=== PATIENT | male | born 1960 | race Caucasian/White ===

== ENCOUNTER → 2020-02-06 | Outpatient (CLI) | payer OTHER, SELFPAY ==
--- NOTE | 2020-02-06 17:00 | RAD_ITS ---
STUDY: X-RAY - LEFT FEMUR REASON FOR STUDY: Male, 59 years old. LOWER BACK PAIN THAT RADIATES INTO THE LEFT HIP. HAS HAD MULTIPLE BACK SURGERIES TECHNIQUE: 6 view(s) of the femur. COMPARISON: None. FINDINGS: There is no evidence of left femoral fracture or dislocation. There are mild arthritic changes of the left hip joint and tricompartmental degenerative changes of the left knee. There is chondrocalcinosis of the medial meniscal cartilage. Several small calcifications are seen in the region of the suprapatellar bursa. RAD/Femur Min 2 Views IMPRESSION: Mild degenerative changes of the left hip. Mild tricompartmental degenerative changes of the left knee. Chondrocalcinosis of the medial meniscal cartilage. Several small calcifications noted in the region of the suprapatellar bursa. Electronically Signed: Miguel Echols MD at 19:17 EDT , Service support ,
--- NOTE | 2020-02-06 17:12 | RAD_ITS ---
STUDY: X-RAY - RIGHT SHOULDER REASON FOR EXAM: Male, 59 years old. RIGHT SHOULDER PAIN. TECHNIQUE: 4 view(s) of the shoulder. COMPARISON: None. FINDINGS: There is mild degenerative arthrosis of the glenohumeral articulation. Normal acromioclavicular joint. Normal acromion. Normal humeral head and visualized proximal humerus. The soft tissue structures are unremarkable. Normal visualized pulmonary apex. RAD/Shoulder min 2 Views IMPRESSION: Mild degenerative changes of the glenohumeral articulation. Electronically Signed: Miguel Echols MD at 19:19 EDT , Service support ,
== END | disposition home or self-care (01) ==
LOC: RAD 16:42
PROVIDERS: Referring Provider Anesthesiology Pain Medicine; Visit Provider Anesthesiology Pain Medicine
DX: M25.511 Pain in right shoulder (principal); M25.552 Pain in left hip
CPT/HCPCS: 73030; 73552

== ENCOUNTER → 2020-03-05 | Outpatient (CLI) | payer OTHER, SELFPAY ==
[2020-03-05 17:59] LABS: Amphetamine Urine VISTA NEGATIVE (<1000 ng/mL); Barbiturate Urine VISTA NEGATIVE (< 200 ng/mL); Benzodiazepine Urine VISTA NEGATIVE (< 200 ng/mL); Cocaine Urine VISTA NEGATIVE (< 300 ng/mL); Ecstacy Urine VISTA NEGATIVE (< 500 ng/mL); Methadone Urine VISTA NEGATIVE (< 300 ng/mL); PCP Urine VISTA NEGATIVE (< 25 ng/mL); THC Urine VISTA NEGATIVE (< 50 ng/mL); Vista UDS pH Range 5
== END | disposition home or self-care (01) ==
PROVIDERS: Visit Provider Anesthesiology Pain Medicine
DX: F11.20 Opioid dependence, uncomplicated (principal)
CPT/HCPCS: 80307

== ENCOUNTER → 2020-08-01 | Outpatient (CLI) | payer OTHER, SELFPAY ==
--- NOTE | 2020-08-01 15:21 | MRI_ITS ---
STUDY: MRI LUMBAR SPINE WITHOUT CONTRAST REASON FOR EXAM: Male, 59 years old. back and L leg pain, stepped backwards into hole 12/2016 TECHNIQUE: Standardized fat and water weighted pulse sequences were obtained in the sagittal and axial planes. COMPARISON: None FINDINGS: T12-L1: Normal endplates. Normal disc height, hydration and morphology. Normal bilateral facet joints. Normal central canal and bilateral lateral recesses. Normal bilateral intervertebral neural foramina. Normal lumbar lordosis. There is no substantial scoliosis. Normal conus medullaris that terminates at the L1 level. L1-2: Bulging annulus and bilateral facet hypertrophy with mild central canal and bilateral foraminal stenoses. L2-3: Bulging annulus, right foraminal disc protrusion and bilateral facet hypertrophy and facet joint effusions with moderate central canal and severe right and mild left foraminal stenoses. L3-4: Bulging annulus and bilateral facet and ligamentum flavum hypertrophy with severe central canal stenosis and severe right and moderate left foraminal stenoses. L4-5: Bulging annulus and bilateral facet hypertrophy with moderate central canal stenosis and moderate bilateral foraminal stenoses. L5-S1: Disc space narrowing and desiccation with discogenic endplate changes and anterior osteophytes. Bulging annulus and bilateral facet hypertrophy with severe bilateral foraminal stenoses. Normal visualized sacral ala. Normal visualized paraspinous soft tissue structures. MRI/Spine Lumbar (Routine) IMPRESSION: Multilevel degenerative disease as described. Severe foraminal stenoses on the right at L2-3, on the right at L3-4, and bilaterally at L5-S1. Severe central canal stenosis at L3-4. Electronically Signed: Martin Noel MD at 19:41 EDT Tel , Service support ,
== END | disposition home or self-care (01) ==
LOC: MRI 15:02
PROVIDERS: PCP Family Medicine; Referring Provider Anesthesiology Pain Medicine; Visit Provider Anesthesiology Pain Medicine
DX: M54.9 Dorsalgia, unspecified (principal); M79.606 Pain in leg, unspecified
CPT/HCPCS: 72148

== ENCOUNTER → 2020-11-22 13:12 | Outpatient (CLI) | payer OTHER, SELFPAY ==
[2020-11-22 13:59] LABS: Amphetamine Urine VISTA NEGATIVE (<1000 ng/mL); Barbiturate Urine VISTA NEGATIVE (< 200 ng/mL); Benzodiazepine Urine VISTA NEGATIVE (< 200 ng/mL); Cocaine Urine VISTA NEGATIVE (< 300 ng/mL); Ecstacy Urine VISTA NEGATIVE (< 500 ng/mL); Methadone Urine VISTA NEGATIVE (< 300 ng/mL); PCP Urine VISTA NEGATIVE (< 25 ng/mL); THC Urine VISTA NEGATIVE (< 50 ng/mL); Vista UDS pH Range 6
== END ==
LOC: LABSPEC 13:15 → LAB 13:18
PROVIDERS: PCP Family Medicine; Referring Provider Anesthesiology Pain Medicine; Visit Provider Anesthesiology Pain Medicine
DX: F11.20 Opioid dependence, uncomplicated (principal)
CPT/HCPCS: 80307

== ENCOUNTER → 2023-03-25 | Outpatient (REF) | payer MEDICAID, SELFPAY ==
[2023-03-25 09:21] LABS: Hematocrit 36.9 % (40-54); Hemoglobin 11.6 g/dL (13.0-16.5); Mean Corp Hgb Conc 31.4 g/dL (32-36); Mean Corpuscular Hgb 31.3 pg (27.0-32.0); Mean Corpuscular Volume 99.5 fL (80-94); Mean Platelet Vol. 9.9 fl (6.2-12.0); Platelet Count 301 K/mm3 (150-450); RBC Distribution Width CV 13.5 % (11.6-14.6); RBC Distribution Width SD 50.3 fl (35.1-43.9); Red Blood Count 3.71 M/mm3 (4.6-6.2); White Blood Count 6.8 K/mm3 (4.4-11.0)
[2023-03-25 09:55] LABS: ALB/GLOB Ratio 0.6 RATIO (0.9-2.4); AST(SGOT) 13 U/L (15-37); Alanine Aminotransfer ALT/SGPT 18 U/L (16-61); Albumin, Serum 2.4 g/dL (3.2-5.0); Alkaline Phosphatase 121 U/L (45-117); Anion Gap 7 (5-15); BUN 10 mg/dL (7-18); BUN/Creat Ratio 22.6 RATIO (10-20); Calcium,Total 8.7 mg/dL (8.5-10.1); Chloride 107 mmol/L (98-107); Cholesterol 163 mg/dL (200); Creatinine, Serum 0.44 mg/dL (0.70-1.30); EST Glomerular Filtration Rate 207 mL/min (>60); Est Glom Filt Rate - Afr Amer 250 mL/min (>60); Globulin 4.3 g/dL (2.2-4.2); Glucose 119 mg/dL (74-106); High Density Lipoprotein 27 mg/dL; PSA,Total - Annual Screen 0.59 ng/mL (0.00-4.00); Potassium 3.6 mmol/L (3.5-5.1); Protein, Total 6.7 g/dL (6.4-8.2); Sodium Level 137 mmol/L (136-145); Thyroid Stim Hormone (TSH) 3.33 uIU/mL (0.358-3.74); Triglycerides 139 mg/dL; Very Low Density Lipoprotein 28 mg/dL (5-40)
== END ==
LOC: OLS.SANC 06:46
PROVIDERS: PCP Family Medicine; Visit Provider Internal Medicine
DX: E11.9 Type 2 diabetes mellitus without complications (principal); D64.9 Anemia, unspecified; Z12.5 Encounter for screening for malignant neoplasm of prostate
CPT/HCPCS: 36415; 80053; 80061; 84153; 84443; 85027; G0103

== ENCOUNTER → 2023-05-04 | Outpatient (REF) | payer MEDICAID, SELFPAY ==
[2023-05-04 09:22] LABS: Hematocrit 32.8 % (40-54); Hemoglobin 10.2 g/dL (13.0-16.5); Mean Corp Hgb Conc 31.1 g/dL (32-36); Mean Corpuscular Hgb 30.8 pg (27.0-32.0); Mean Corpuscular Volume 99.1 fL (80-94); Mean Platelet Vol. 10.2 fl (6.2-12.0); Platelet Count 290 K/mm3 (150-450); RBC Distribution Width CV 13.5 % (11.6-14.6); RBC Distribution Width SD 48.8 fl (35.1-43.9); Red Blood Count 3.31 M/mm3 (4.6-6.2); White Blood Count 6.7 K/mm3 (4.4-11.0)
[2023-05-04 09:47] LABS: ALB/GLOB Ratio 0.6 RATIO (0.9-2.4); AST(SGOT) 16 U/L (15-37); Alanine Aminotransfer ALT/SGPT 17 U/L (16-61); Albumin, Serum 2.2 g/dL (3.2-5.0); Alkaline Phosphatase 104 U/L (45-117); Anion Gap 4 (5-15); BUN 12 mg/dL (7-18); BUN/Creat Ratio 21.9 RATIO (10-20); Calcium,Total 8.4 mg/dL (8.5-10.1); Chloride 109 mmol/L (98-107); Creatinine, Serum 0.55 mg/dL (0.70-1.30); EST Glomerular Filtration Rate 161 mL/min (>60); Est Glom Filt Rate - Afr Amer 195 mL/min (>60); Globulin 3.8 g/dL (2.2-4.2); Glucose 183 mg/dL (74-106); Sodium Level 139 mmol/L (136-145)
== END ==
LOC: OLS.SANC 04:00
PROVIDERS: PCP Family Medicine; Referring Provider Internal Medicine; Visit Provider Internal Medicine
DX: E11.9 Type 2 diabetes mellitus without complications (principal); D64.9 Anemia, unspecified
CPT/HCPCS: 36415; 80053; 85027

== ENCOUNTER → 2023-06-01 | Outpatient (REF) | payer MEDICAID, SELFPAY ==
[2023-06-01 08:45] LABS: Hematocrit 39.5 % (40-54); Hemoglobin 12.7 g/dL (13.0-16.5); Mean Corp Hgb Conc 32.2 g/dL (32-36); Mean Corpuscular Hgb 32.1 pg (27.0-32.0); Mean Corpuscular Volume 99.7 fL (80-94); Mean Platelet Vol. 10.1 fl (6.2-12.0); Platelet Count 274 K/mm3 (150-450); RBC Distribution Width CV 14.6 % (11.6-14.6); RBC Distribution Width SD 54.3 fl (35.1-43.9); Red Blood Count 3.96 M/mm3 (4.6-6.2); White Blood Count 6.8 K/mm3 (4.4-11.0)
[2023-06-01 09:00] LABS: Anion Gap 4 (5-15); BUN 14 mg/dL (7-18); BUN/Creat Ratio 29.2 RATIO (10-20); Calcium,Total 8.5 mg/dL (8.5-10.1); Chloride 112 mmol/L (98-107); Creatinine, Serum 0.48 mg/dL (0.70-1.30); EST Glomerular Filtration Rate 188 mL/min (>60); Est Glom Filt Rate - Afr Amer 227 mL/min (>60); Glucose 133 mg/dL (74-106); Potassium 3.8 mmol/L (3.5-5.1); Sodium Level 141 mmol/L (136-145)
== END ==
LOC: OLS.SANC 04:00
PROVIDERS: PCP Family Medicine; Referring Provider Internal Medicine; Visit Provider Internal Medicine
DX: D64.9 Anemia, unspecified (principal); N39.0 Urinary tract infection, site not specified; E11.9 Type 2 diabetes mellitus without complications
CPT/HCPCS: 36415; 80048; 85027

== ENCOUNTER → 2023-06-29 | Outpatient (REF) | payer MEDICAID, SELFPAY ==
[2023-06-29 09:10] LABS: Hematocrit 39.4 % (40-54); Hemoglobin 12.6 g/dL (13.0-16.5); Mean Corpuscular Hgb 31.1 pg (27.0-32.0); Mean Corpuscular Volume 97.3 fL (80-94); Platelet Count 243 K/mm3 (150-450); RBC Distribution Width CV 13.6 % (11.6-14.6); RBC Distribution Width SD 48.6 fl (35.1-43.9); Red Blood Count 4.05 M/mm3 (4.6-6.2); White Blood Count 6.4 K/mm3 (4.4-11.0)
[2023-06-29 09:19] LABS: Anion Gap 7 (5-15); BUN 15 mg/dL (7-18); BUN/Creat Ratio 28.8 RATIO (10-20); Calcium,Total 8.3 mg/dL (8.5-10.1); Chloride 108 mmol/L (98-107); Creatinine, Serum 0.52 mg/dL (0.70-1.30); EST Glomerular Filtration Rate 171 mL/min (>60); Est Glom Filt Rate - Afr Amer 207 mL/min (>60); Glucose 169 mg/dL (74-106); Potassium 3.4 mmol/L (3.5-5.1); Sodium Level 139 mmol/L (136-145)
== END ==
LOC: OLS.SANC 04:00
PROVIDERS: PCP Family Medicine; Referring Provider Internal Medicine; Visit Provider Internal Medicine
DX: D64.9 Anemia, unspecified (principal); E11.9 Type 2 diabetes mellitus without complications; G82.20 Paraplegia, unspecified
CPT/HCPCS: 36415; 80048; 85027

== ENCOUNTER → 2023-07-31 | Outpatient (REF) | payer MEDICAID, SELFPAY ==
[2023-07-31 07:55] LABS: Bacteria 0 SEEN /hpf (None Seen); Mucous, Urine 0 SEEN /hpf (<or=2+); Squamous Epithelial Cells - UA 0 SEEN /hpf (0-5)
[2023-07-31 08:05] LABS: Color, Urine Yellow (Yellow); Glucose, Dipstick Normal (Normal); Ketone-Dipstick Negative (Negative); Leukocyte Esterase-Dipstick 500 /ul (Negative); Nitrite-Dipstick Negative (Negative); Occult Blood-Urine 250 /ul (Negative); Protein-Dipstick 30 mg/dl (Negative); Urine Bilirubin Dipstick Negative (Negative); Urine Clarity Cloudy (Clear); Urine Urobilinogen Normal (Normal)
[2023-07-31 08:19] LABS: Amorphous Sediment 2+; Red Blood Cells-Urine 10-25 SEEN /hpf (0-5); White Blood Cells 50-100 SEEN /hpf (0-5)
== END ==
LOC: OLS.SANC 05:00
PROVIDERS: PCP Family Medicine; Visit Provider Internal Medicine
DX: N40.1 Benign prostatic hyperplasia with lower urinary tract symptoms (principal); R31.9 Hematuria, unspecified; N20.9 Urinary calculus, unspecified
CPT/HCPCS: 81001; 87077; 87086; 87088; 87186

== ENCOUNTER → 2023-08-07 | Outpatient (REF) | payer MEDICAID, SELFPAY ==
[2023-08-07 10:32] LABS: Hemoglobin A1c 6.2 % (3.8-5.6)
== END | disposition home or self-care (01) ==
LOC: OLS.SANC 05:00
PROVIDERS: PCP Family Medicine; Visit Provider Internal Medicine
DX: E11.9 Type 2 diabetes mellitus without complications (principal)
CPT/HCPCS: 36415; 83036

== ENCOUNTER → 2023-08-10 | Outpatient (REF) | payer MEDICAID, SELFPAY ==
[2023-08-10 10:42] LABS: Hemoglobin A1c 6.2 % (3.8-5.6)
== END | disposition home or self-care (01) ==
LOC: OLS.SANC 04:00
PROVIDERS: PCP Family Medicine; Referring Provider Internal Medicine; Visit Provider Internal Medicine
DX: D64.9 Anemia, unspecified (principal); E11.9 Type 2 diabetes mellitus without complications
CPT/HCPCS: 36415; 83036

== ENCOUNTER → 2023-10-25 | Outpatient (REF) | payer MEDICAID, SELFPAY ==
[2023-10-26 09:24] LABS: Mucous, Urine 0 SEEN /hpf (<or=2+); Squamous Epithelial Cells - UA 0 SEEN /hpf (0-5)
[2023-10-26 09:52] LABS: Glucose, Dipstick Normal (Normal); Ketone-Dipstick Negative (Negative); Leukocyte Esterase-Dipstick 500 /ul (Negative); Nitrite-Dipstick Negative (Negative); Occult Blood-Urine 150 /ul (Negative); Protein-Dipstick 500 mg/dl (Negative); Urine Bilirubin Dipstick Negative (Negative); Urine Urobilinogen Normal (Normal)
[2023-10-26 09:57] LABS: Color, Urine YELLOW (Yellow); Urine Clarity Cloudy (Clear)
[2023-10-26 09:59] LABS: Amorphous Sediment 3+; Bacteria 1+ /hpf (None Seen); Uric Acid Crystals Ur 3+ /hpf (<or=1+)
[2023-10-26 10:00] LABS: Red Blood Cells-Urine 0-5 SEEN /hpf (0-5); White Blood Cells 0-5 SEEN /hpf (0-5)
== END | disposition home or self-care (01) ==
LOC: OLS.SANC 23:00
PROVIDERS: PCP Family Medicine; Visit Provider Internal Medicine
DX: N39.0 Urinary tract infection, site not specified (principal)
CPT/HCPCS: 81001; 87077; 87086; 87088; 87186

== ENCOUNTER → 2023-12-04 | Outpatient (REF) | payer MEDICAID, SELFPAY ==
[2023-12-04 08:43] LABS: Mucous, Urine 0 SEEN /hpf (<or=2+); Squamous Epithelial Cells - UA 0 SEEN /hpf (0-5)
[2023-12-04 09:03] LABS: Color, Urine Yellow (Yellow); Glucose, Dipstick Normal (Normal); Ketone-Dipstick 5 mg/dl (Negative); Leukocyte Esterase-Dipstick 500 /ul (Negative); Nitrite-Dipstick Negative (Negative); Occult Blood-Urine 150 /ul (Negative); Protein-Dipstick 30 mg/dl (Negative); Specific Gravity, Urine 1.015 (1.002-1.030); Urine Bilirubin Dipstick Negative (Negative); Urine Clarity Cloudy (Clear); Urine Urobilinogen Normal (Normal)
[2023-12-04 09:26] LABS: Bacteria 3+ /hpf (None Seen); Calcium Oxalate Crystals Ur 2+ /hpf (<or=2+); Red Blood Cells-Urine 10-25 SEEN /hpf (0-5); Triple Phosphate Crystals Ur 2+ /hpf (<or=1+); White Blood Cells 25-50 SEEN /hpf (0-5)
== END | disposition home or self-care (01) ==
LOC: OLS.SANC 06:00
PROVIDERS: PCP Family Medicine; Visit Provider Internal Medicine
DX: N39.0 Urinary tract infection, site not specified (principal)
CPT/HCPCS: 81001; 87077; 87086; 87088; 87186

== ENCOUNTER → 2023-12-31 | Outpatient (REF) | payer MEDICAID, SELFPAY ==
[2023-12-31 08:25] LABS: Hemoglobin 12.5 g/dL (13.0-16.5); Mean Corp Hgb Conc 33.8 g/dL (32-36); Mean Corpuscular Hgb 31.4 pg (27.0-32.0); Platelet Count 199 K/mm3 (150-450); RBC Distribution Width CV 14.1 % (11.6-14.6); RBC Distribution Width SD 48.5 fl (35.1-43.9); Red Blood Count 3.98 M/mm3 (4.6-6.2); White Blood Count 7.7 K/mm3 (4.4-11.0)
[2023-12-31 08:55] LABS: Anion Gap 6 (5-15); BUN 11 mg/dL (7-18); BUN/Creat Ratio 29.1 RATIO (10-20); Calcium,Total 8.6 mg/dL (8.5-10.1); Chloride 107 mmol/L (98-107); Creatinine, Serum 0.38 mg/dL (0.70-1.30); EST Glomerular Filtration Rate 247 mL/min (>60); Est Glom Filt Rate - Afr Amer 299 mL/min (>60); Glucose 145 mg/dL (74-106); Potassium 3.4 mmol/L (3.5-5.1); Sodium Level 136 mmol/L (136-145)
== END | disposition home or self-care (01) ==
LOC: OLS.SANC 05:00
PROVIDERS: PCP Family Medicine; Visit Provider Internal Medicine
DX: D64.9 Anemia, unspecified (principal); E11.9 Type 2 diabetes mellitus without complications
CPT/HCPCS: 36415; 80048; 85027

== ENCOUNTER → 2024-01-04 | Outpatient (REF) | payer MEDICAID, SELFPAY ==
[2024-01-04 11:11] LABS: Hemoglobin A1c 6.3 % (3.8-5.6)
== END | disposition home or self-care (01) ==
LOC: OLS.SANC 05:00
PROVIDERS: PCP Family Medicine; Visit Provider Internal Medicine
DX: E11.9 Type 2 diabetes mellitus without complications (principal)
CPT/HCPCS: 36415; 83036

== ENCOUNTER → 2024-01-07 | Outpatient (REF) | payer MEDICAID, SELFPAY ==
[2024-01-07 08:41] LABS: Hematocrit 38.9 % (40-54); Mean Corp Hgb Conc 33.4 g/dL (32-36); Mean Corpuscular Volume 92.6 fL (80-94); Mean Platelet Vol. 10.2 fl (6.2-12.0); Platelet Count 282 K/mm3 (150-450); RBC Distribution Width CV 13.8 % (11.6-14.6); RBC Distribution Width SD 46.5 fl (35.1-43.9); White Blood Count 8.1 K/mm3 (4.4-11.0)
[2024-01-07 09:00] LABS: Anion Gap 5 (5-15); BUN 11 mg/dL (7-18); BUN/Creat Ratio 25.5 RATIO (10-20); Calcium,Total 8.5 mg/dL (8.5-10.1); Chloride 112 mmol/L (98-107); Creatinine, Serum 0.43 mg/dL (0.70-1.30); EST Glomerular Filtration Rate 212 mL/min (>60); Est Glom Filt Rate - Afr Amer 257 mL/min (>60); Glucose 114 mg/dL (74-106); Potassium 3.8 mmol/L (3.5-5.1); Sodium Level 140 mmol/L (136-145)
== END | disposition home or self-care (01) ==
LOC: OLS.SANC 05:00
PROVIDERS: PCP Family Medicine; Visit Provider Internal Medicine
DX: D64.9 Anemia, unspecified (principal); E11.9 Type 2 diabetes mellitus without complications
CPT/HCPCS: 36415; 80048; 85027

== ENCOUNTER → 2024-01-15 | Outpatient (REF) | payer MEDICAID, SELFPAY ==
[2024-01-15 09:12] LABS: Hematocrit 39.5 % (40-54); Mean Corp Hgb Conc 32.9 g/dL (32-36); Mean Corpuscular Volume 94.3 fL (80-94); Mean Platelet Vol. 10.4 fl (6.2-12.0); Platelet Count 257 K/mm3 (150-450); RBC Distribution Width CV 13.8 % (11.6-14.6); Red Blood Count 4.19 M/mm3 (4.6-6.2); White Blood Count 6.6 K/mm3 (4.4-11.0)
[2024-01-15 09:47] LABS: Anion Gap 4 (5-15); BUN 10 mg/dL (7-18); BUN/Creat Ratio 21.6 RATIO (10-20); Calcium,Total 8.7 mg/dL (8.5-10.1); Chloride 109 mmol/L (98-107); Creatinine, Serum 0.46 mg/dL (0.70-1.30); EST Glomerular Filtration Rate 195 mL/min (>60); Est Glom Filt Rate - Afr Amer 236 mL/min (>60); Glucose 122 mg/dL (74-106); Potassium 3.8 mmol/L (3.5-5.1); Sodium Level 139 mmol/L (136-145)
== END | disposition home or self-care (01) ==
LOC: OLS.SANC 05:00
PROVIDERS: PCP Family Medicine; Visit Provider Internal Medicine
DX: D64.9 Anemia, unspecified (principal); E11.9 Type 2 diabetes mellitus without complications
CPT/HCPCS: 36415; 80048; 85027

== ENCOUNTER → 2024-02-04 | Outpatient (REF) | payer MEDICAID, SELFPAY | END | disposition home or self-care (01) | LOC: OLS.SANC 23:00 | PROVIDERS: PCP Family Medicine; Visit Provider Internal Medicine | DX: Z79.899 Other long term (current) drug therapy (principal) | CPT/HCPCS: 87493 ==

== ENCOUNTER → 2024-03-17 | Outpatient (REF) | payer MEDICAID, SELFPAY ==
[2024-03-17 09:12] LABS: Mucous, Urine 0 SEEN /hpf (<or=2+); Red Blood Cells-Urine 0 SEEN /hpf (0-5); Squamous Epithelial Cells - UA 0 SEEN /hpf (0-5)
[2024-03-17 09:53] LABS: Color, Urine Yellow (Yellow); Glucose, Dipstick Normal (Normal); Ketone-Dipstick Negative (Negative); Leukocyte Esterase-Dipstick 500 /ul (Negative); Nitrite-Dipstick Negative (Negative); Occult Blood-Urine 150 /ul (Negative); Protein-Dipstick 30 mg/dl (Negative); Urine Bilirubin Dipstick Negative (Negative); Urine Clarity Sl. Cloudy (Clear); Urine Urobilinogen Normal (Normal)
[2024-03-17 10:08] LABS: Bacteria 4+ /hpf (None Seen); Triple Phosphate Crystals Ur 2+ /hpf (<or=1+); White Blood Cells 25-50 SEEN /hpf (0-5)
[2024-03-17 10:12] LABS: Calcium Oxalate Crystals Ur 1+ /hpf (<or=2+)
== END | disposition home or self-care (01) ==
LOC: OLS.SANC 09:11
PROVIDERS: PCP Family Medicine; Visit Provider Internal Medicine
DX: Z79.899 Other long term (current) drug therapy (principal)
CPT/HCPCS: 81001; 87077; 87086; 87088; 87186

== ENCOUNTER → 2024-04-04 | Outpatient (REF) | payer MEDICAID, SELFPAY ==
[2024-04-04 08:31] LABS: Hemoglobin A1c 6.1 % (3.8-5.6)
== END | disposition home or self-care (01) ==
LOC: OLS.SANC 05:00
PROVIDERS: PCP Family Medicine; Visit Provider Internal Medicine
DX: D64.9 Anemia, unspecified (principal); E11.9 Type 2 diabetes mellitus without complications
CPT/HCPCS: 36415; 83036

== ENCOUNTER → 2024-04-08 | Outpatient (REF) | payer MEDICAID, SELFPAY ==
[2024-04-08 08:30] LABS: Hematocrit 44.9 % (40-54); Hemoglobin 14.4 g/dL (13.0-16.5); Mean Corp Hgb Conc 32.1 g/dL (32-36); Mean Corpuscular Hgb 30.9 pg (27.0-32.0); Mean Corpuscular Volume 96.4 fL (80-94); Mean Platelet Vol. 11.3 fl (6.2-12.0); Platelet Count 248 K/mm3 (150-450); RBC Distribution Width CV 14.1 % (11.6-14.6); RBC Distribution Width SD 50.4 fl (35.1-43.9); Red Blood Count 4.66 M/mm3 (4.6-6.2); White Blood Count 6.9 K/mm3 (4.4-11.0)
[2024-04-08 08:47] LABS: Anion Gap 6 (5-15); BUN 10 mg/dL (7-18); BUN/Creat Ratio 16.4 RATIO (10-20); Calcium,Total 8.9 mg/dL (8.5-10.1); Chloride 104 mmol/L (98-107); Creatinine, Serum 0.61 mg/dL (0.70-1.30); EST Glomerular Filtration Rate 142 mL/min (>60); Est Glom Filt Rate - Afr Amer 172 mL/min (>60); Glucose 198 mg/dL (74-106); Potassium 3.9 mmol/L (3.5-5.1); Sodium Level 138 mmol/L (136-145)
== END | disposition home or self-care (01) ==
LOC: OLS.SANC 05:00
PROVIDERS: PCP Family Medicine; Referring Provider Internal Medicine; Visit Provider Internal Medicine
DX: D64.9 Anemia, unspecified (principal); E11.9 Type 2 diabetes mellitus without complications
CPT/HCPCS: 36415; 80048; 85027

== ENCOUNTER → 2024-05-09 | Outpatient (REF) | payer MEDICAID, SELFPAY ==
[2024-05-09 09:37] LABS: Hematocrit 36.6 % (40-54); Hemoglobin 11.7 g/dL (13.0-16.5); Mean Corpuscular Hgb 29.9 pg (27.0-32.0); Mean Corpuscular Volume 93.6 fL (80-94); Mean Platelet Vol. 11.3 fl (6.2-12.0); Platelet Count 264 K/mm3 (150-450); RBC Distribution Width CV 14.7 % (11.6-14.6); RBC Distribution Width SD 50.4 fl (35.1-43.9); Red Blood Count 3.91 M/mm3 (4.6-6.2); White Blood Count 6.8 K/mm3 (4.4-11.0)
[2024-05-09 10:02] LABS: Anion Gap 6 (5-15); BUN 12 mg/dL (7-18); BUN/Creat Ratio 19.7 RATIO (10-20); Calcium,Total 8.5 mg/dL (8.5-10.1); Chloride 107 mmol/L (98-107); Creatinine, Serum 0.61 mg/dL (0.70-1.30); EST Glomerular Filtration Rate 142 mL/min (>60); Est Glom Filt Rate - Afr Amer 172 mL/min (>60); Glucose 158 mg/dL (74-106); Potassium 3.8 mmol/L (3.5-5.1); Sodium Level 138 mmol/L (136-145)
== END | disposition home or self-care (01) ==
LOC: OLS.SANC 05:00
PROVIDERS: PCP Family Medicine; Visit Provider Internal Medicine
DX: E11.9 Type 2 diabetes mellitus without complications (principal)
CPT/HCPCS: 36415; 80048; 85027

== ENCOUNTER → 2024-05-16 | Outpatient (REF) | payer MEDICAID, SELFPAY | END | disposition home or self-care (01) | LOC: OLS.SANC 05:00 | PROVIDERS: PCP Family Medicine; Visit Provider Internal Medicine | DX: A41.9 Sepsis, unspecified organism (principal); N39.0 Urinary tract infection, site not specified | CPT/HCPCS: 36415; 87040; 87077; 87149; 87186 ==

== ENCOUNTER → 2024-05-30 04:00 | Outpatient (REF) | payer MEDICAID, SELFPAY ==
[2024-05-30 08:14] LABS: Hematocrit 36.7 % (40-54); Mean Corp Hgb Conc 32.7 g/dL (32-36); Mean Corpuscular Hgb 30.5 pg (27.0-32.0); Mean Corpuscular Volume 93.1 fL (80-94); Mean Platelet Vol. 11.1 fl (6.2-12.0); Platelet Count 219 K/mm3 (150-450); RBC Distribution Width CV 15.4 % (11.6-14.6); RBC Distribution Width SD 53.4 fl (35.1-43.9); Red Blood Count 3.94 M/mm3 (4.6-6.2); White Blood Count 5.9 K/mm3 (4.4-11.0)
[2024-05-30 09:39] LABS: ALB/GLOB Ratio 0.6 RATIO (0.9-2.4); AST(SGOT) 19 U/L (15-37); Alanine Aminotransfer ALT/SGPT 24 U/L (16-61); Albumin, Serum 2.6 g/dL (3.2-5.0); Alkaline Phosphatase 178 U/L (45-117); Anion Gap 6 (5-15); BUN 8 mg/dL (7-18); BUN/Creat Ratio 15.9 RATIO (10-20); Calcium,Total 8.6 mg/dL (8.5-10.1); Chloride 108 mmol/L (98-107); EST Glomerular Filtration Rate 177 mL/min (>60); Est Glom Filt Rate - Afr Amer 214 mL/min (>60); Globulin 4.2 g/dL (2.2-4.2); Glucose 185 mg/dL (74-106); Potassium 3.8 mmol/L (3.5-5.1); Protein, Total 6.8 g/dL (6.4-8.2); Sodium Level 137 mmol/L (136-145)
== END ==
LOC: OLS.SANC 04:00
PROVIDERS: PCP Family Medicine; Visit Provider Internal Medicine
DX: D64.9 Anemia, unspecified (principal); E11.9 Type 2 diabetes mellitus without complications; G82.20 Paraplegia, unspecified
CPT/HCPCS: 36415; 80053; 85027

== ENCOUNTER → 2024-06-15 | Outpatient (REF) | payer MEDICAID, SELFPAY ==
[2024-06-15 09:49] LABS: Mucous, Urine 0 SEEN /hpf (<or=2+); Squamous Epithelial Cells - UA 0 SEEN /hpf (0-5)
[2024-06-15 09:56] LABS: Color, Urine Yellow (Yellow); Glucose, Dipstick Normal (Normal); Ketone-Dipstick Negative (Negative); Leukocyte Esterase-Dipstick 500 /ul (Negative); Nitrite-Dipstick Positive (Negative); Occult Blood-Urine 250 /ul (Negative); Protein-Dipstick 100 mg/dl (Negative); Specific Gravity, Urine 1.015 (1.002-1.030); Urine Bilirubin Dipstick Negative (Negative); Urine Clarity Sl. Cloudy (Clear); Urine Urobilinogen Normal (Normal)
[2024-06-15 10:12] LABS: Bacteria 2+ /hpf (None Seen); White Blood Cells 25-50 SEEN /hpf (0-5)
[2024-06-15 10:13] LABS: Red Blood Cells-Urine 25-50 SEEN /hpf (0-5)
== END | disposition home or self-care (01) ==
LOC: OLS.SANC 05:15
PROVIDERS: PCP Family Medicine; Visit Provider Internal Medicine
DX: N39.0 Urinary tract infection, site not specified (principal); R31.9 Hematuria, unspecified; N20.9 Urinary calculus, unspecified
CPT/HCPCS: 81001; 87077; 87086; 87088; 87186

== ENCOUNTER → 2024-07-04 | Outpatient (REF) | payer MEDICAID, SELFPAY ==
[2024-07-04 08:06] LABS: Hematocrit 39.4 % (40-54); Hemoglobin 12.7 g/dL (13.0-16.5); Mean Corp Hgb Conc 32.2 g/dL (32-36); Mean Corpuscular Hgb 30.3 pg (27.0-32.0); Platelet Count 260 K/mm3 (150-450); RBC Distribution Width CV 14.8 % (11.6-14.6); RBC Distribution Width SD 51.5 fl (35.1-43.9); Red Blood Count 4.19 M/mm3 (4.6-6.2); White Blood Count 7.4 K/mm3 (4.4-11.0)
[2024-07-04 08:18] LABS: Anion Gap 7 (5-15); BUN 9 mg/dL (7-18); BUN/Creat Ratio 18.2 RATIO (10-20); Calcium,Total 8.6 mg/dL (8.5-10.1); Chloride 108 mmol/L (98-107); EST Glomerular Filtration Rate 181 mL/min (>60); Est Glom Filt Rate - Afr Amer 219 mL/min (>60); Glucose 86 mg/dL (74-106); Potassium 3.8 mmol/L (3.5-5.1); Sodium Level 140 mmol/L (136-145)
== END | disposition home or self-care (01) ==
LOC: OLS.SANC 05:00
PROVIDERS: PCP Family Medicine; Visit Provider Internal Medicine
DX: D64.9 Anemia, unspecified (principal); N39.0 Urinary tract infection, site not specified; E11.9 Type 2 diabetes mellitus without complications; A41.9 Sepsis, unspecified organism
CPT/HCPCS: 36415; 80048; 85027

== ENCOUNTER → 2024-09-20 | Outpatient (REF) | payer MEDICAID, SELFPAY ==
[2024-09-20 08:04] LABS: Anion Gap 6 (5-15); BUN 16 mg/dL (7-18); BUN/Creat Ratio 26.4 RATIO (10-20); Calcium,Total 8.2 mg/dL (8.5-10.1); Chloride 107 mmol/L (98-107); Creatinine, Serum 0.61 mg/dL (0.70-1.30); EST Glomerular Filtration Rate 143 mL/min (>60); Est Glom Filt Rate - Afr Amer 173 mL/min (>60); Glucose 134 mg/dL (74-106); Potassium 3.3 mmol/L (3.5-5.1); Sodium Level 137 mmol/L (136-145)
== END | disposition home or self-care (01) ==
LOC: OLS.SANC 05:00
PROVIDERS: PCP Family Medicine; Visit Provider Internal Medicine
DX: E11.9 Type 2 diabetes mellitus without complications (principal); Z79.899 Other long term (current) drug therapy
CPT/HCPCS: 36415; 80048

== ENCOUNTER → 2024-09-29 | Outpatient (REF) | payer MEDICAID, SELFPAY ==
[2024-09-29 09:18] LABS: Erythrocyte Sedimentation Rate 47 mm/hr (0-20)
[2024-09-29 09:23] LABS: Hematocrit 40.3 % (40-54); Hemoglobin 13.3 g/dL (13.0-16.5); Mean Corpuscular Hgb 31.4 pg (27.0-32.0); Mean Platelet Vol. 10.6 fl (6.2-12.0); Platelet Count 270 K/mm3 (150-450); RBC Distribution Width CV 14.4 % (11.6-14.6); Red Blood Count 4.24 M/mm3 (4.6-6.2); White Blood Count 8.7 K/mm3 (4.4-11.0)
== END | disposition home or self-care (01) ==
LOC: OLS.SANC 04:00
PROVIDERS: PCP Family Medicine; Referring Provider Internal Medicine; Visit Provider Internal Medicine
DX: D64.9 Anemia, unspecified (principal); Z79.899 Other long term (current) drug therapy
CPT/HCPCS: 36415; 85027; 85652; 86140

== ENCOUNTER → 2024-10-03 | Outpatient (REF) | payer MEDICAID, SELFPAY ==
[2024-10-03 09:02] LABS: Hematocrit 38.4 % (40-54); Hemoglobin 12.5 g/dL (13.0-16.5); Mean Corp Hgb Conc 32.6 g/dL (32-36); Mean Corpuscular Hgb 30.3 pg (27.0-32.0); Mean Platelet Vol. 10.4 fl (6.2-12.0); Platelet Count 284 K/mm3 (150-450); RBC Distribution Width SD 48.5 fl (35.1-43.9); Red Blood Count 4.13 M/mm3 (4.6-6.2); White Blood Count 7.8 K/mm3 (4.4-11.0)
[2024-10-03 09:17] LABS: Anion Gap 5 (5-15); BUN 7 mg/dL (7-18); BUN/Creat Ratio 14.7 RATIO (10-20); Calcium,Total 8.7 mg/dL (8.5-10.1); Chloride 109 mmol/L (98-107); Creatinine, Serum 0.48 mg/dL (0.70-1.30); EST Glomerular Filtration Rate 189 mL/min (>60); Est Glom Filt Rate - Afr Amer 229 mL/min (>60); Glucose 105 mg/dL (74-106); Potassium 3.7 mmol/L (3.5-5.1); Sodium Level 138 mmol/L (136-145)
== END | disposition home or self-care (01) ==
LOC: OLS.SANC 05:00
PROVIDERS: PCP Family Medicine; Visit Provider Internal Medicine
DX: D64.9 Anemia, unspecified (principal); E11.9 Type 2 diabetes mellitus without complications; G82.20 Paraplegia, unspecified
CPT/HCPCS: 36415; 80048; 85027

== ENCOUNTER → 2024-10-10 | Outpatient (REF) | payer MEDICAID, SELFPAY ==
[2024-10-10 09:57] LABS: Hematocrit 42.2 % (40-54); Hemoglobin 13.4 g/dL (13.0-16.5); Mean Corp Hgb Conc 31.8 g/dL (32-36); Mean Corpuscular Hgb 29.8 pg (27.0-32.0); Mean Platelet Vol. 10.5 fl (6.2-12.0); Platelet Count 283 K/mm3 (150-450); RBC Distribution Width CV 13.9 % (11.6-14.6); RBC Distribution Width SD 47.8 fl (35.1-43.9); Red Blood Count 4.49 M/mm3 (4.6-6.2); White Blood Count 7.7 K/mm3 (4.4-11.0)
[2024-10-10 10:29] LABS: Anion Gap 7 (5-15); BUN 11 mg/dL (7-18); BUN/Creat Ratio 19.6 RATIO (10-20); Calcium,Total 8.7 mg/dL (8.5-10.1); Chloride 109 mmol/L (98-107); Creatinine, Serum 0.56 mg/dL (0.70-1.30); EST Glomerular Filtration Rate 156 mL/min (>60); Est Glom Filt Rate - Afr Amer 189 mL/min (>60); Glucose 108 mg/dL (74-106); Sodium Level 139 mmol/L (136-145)
== END | disposition home or self-care (01) ==
LOC: OLS.SANC 05:00
PROVIDERS: PCP Family Medicine; Visit Provider Internal Medicine
DX: D64.9 Anemia, unspecified (principal); E11.9 Type 2 diabetes mellitus without complications
CPT/HCPCS: 36415; 80048; 85027

== ENCOUNTER → 2024-11-29 | Outpatient (REF) | payer MEDICAID, SELFPAY ==
[2024-11-29 08:26] LABS: Mucous, Urine 0 SEEN /hpf (<or=2+); Squamous Epithelial Cells - UA 0 SEEN /hpf (0-5)
[2024-11-29 09:24] LABS: Color, Urine Yellow (Yellow); Glucose, Dipstick Normal (Normal); Ketone-Dipstick Negative (Negative); Leukocyte Esterase-Dipstick 500 /ul (Negative); Nitrite-Dipstick Positive (Negative); Occult Blood-Urine 250 /ul (Negative); Protein-Dipstick 100 mg/dl (Negative); Urine Bilirubin Dipstick Negative (Negative); Urine Clarity Cloudy (Clear); Urine Urobilinogen Normal (Normal); Urine pH 6.5 (5.0 - 8.0)
[2024-11-29 09:30] LABS: Red Blood Cells-Urine 10-25 SEEN /hpf (0-5); White Blood Cells >100 SEEN /hpf (0-5)
[2024-11-29 09:31] LABS: Bacteria 1+ /hpf (None Seen)
== END | disposition home or self-care (01) ==
LOC: OLS.SANC 04:45
PROVIDERS: PCP Family Medicine
DX: E11.9 Type 2 diabetes mellitus without complications (principal); R31.9 Hematuria, unspecified
CPT/HCPCS: 81001; 87077; 87086; 87088; 87186

== ENCOUNTER → 2024-11-30 | Outpatient (REF) | payer SELFPAY ==
[2024-11-30 08:25] LABS: Hematocrit 37.1 % (40-54); Mean Corp Hgb Conc 32.3 g/dL (32-36); Mean Corpuscular Hgb 29.9 pg (27.0-32.0); Mean Corpuscular Volume 92.5 fL (80-94); Mean Platelet Vol. 11.1 fl (6.2-12.0); Platelet Count 230 K/mm3 (150-450); RBC Distribution Width CV 13.7 % (11.6-14.6); RBC Distribution Width SD 46.8 fl (35.1-43.9); Red Blood Count 4.01 M/mm3 (4.6-6.2); White Blood Count 6.3 K/mm3 (4.4-11.0)
[2024-11-30 09:26] LABS: Anion Gap 9 (5-15); BUN 10 mg/dL (4-19); BUN/Creat Ratio 23.9 RATIO (10-20); Calcium 8.4 mg/dL (7.6-11.0); Carbon Dioxide 22.7 mmol/L (22.0-29.0); Chloride 105 mmol/L (96-108); Creatinine, Serum 0.4 mg/dL (0.8-1.3); EST Glomerular Filtration Rate 120 (>60); Glucose 170 mg/dL (70-99); Potassium 3.8 mmol/L (3.3-5.1); Sodium Level 137 mmol/L (133-145)
== END ==
LOC: OLS.SANC 05:00
PROVIDERS: PCP Family Medicine; Visit Provider Internal Medicine
DX: I48.91 Unspecified atrial fibrillation (principal); D64.9 Anemia, unspecified; E11.9 Type 2 diabetes mellitus without complications
CPT/HCPCS: 36415; 80048; 85027

== ENCOUNTER → 2024-12-07 | Outpatient (REF) | payer MEDICAID, SELFPAY ==
[2024-12-07 08:46] LABS: Hematocrit 38.2 % (40-54); Hemoglobin 12.8 g/dL (13.0-16.5); Mean Corp Hgb Conc 33.5 g/dL (32-36); Mean Corpuscular Hgb 30.9 pg (27.0-32.0); Mean Corpuscular Volume 92.3 fL (80-94); Mean Platelet Vol. 10.5 fl (6.2-12.0); Platelet Count 241 K/mm3 (150-450); RBC Distribution Width SD 47.9 fl (35.1-43.9); Red Blood Count 4.14 M/mm3 (4.6-6.2); White Blood Count 6.6 K/mm3 (4.4-11.0)
[2024-12-07 09:07] LABS: Anion Gap 10 (5-15); BUN 9 mg/dL (4-19); BUN/Creat Ratio 20.1 RATIO (10-20); Calcium,Total 8.6 mg/dL (7.6-11.0); Carbon Dioxide 21.3 mmol/L (21.0-32.0); Chloride 104 mmol/L (98-108); Creatinine, Serum 0.47 mg/dL (0.70-1.20); EST Glomerular Filtration Rate 117 (>60); Glucose 194 mg/dL (70-99); Potassium 4.3 mmol/L (3.3-5.1); Sodium Level 136 mmol/L (133-145)
== END | disposition home or self-care (01) ==
LOC: OLS.SANC 05:00
PROVIDERS: PCP Family Medicine; Visit Provider Internal Medicine
DX: N39.0 Urinary tract infection, site not specified (principal)
CPT/HCPCS: 36415; 80048; 85027

== ENCOUNTER → 2025-01-09 | Outpatient (REF) | payer MEDICAID, SELFPAY ==
[2025-01-09 10:07] LABS: Hematocrit 39.3 % (40-54); Hemoglobin 13.1 g/dL (13.0-16.5); Mean Corp Hgb Conc 33.3 g/dL (32-36); Mean Corpuscular Hgb 30.9 pg (27.0-32.0); Mean Corpuscular Volume 92.7 fL (80-94); Mean Platelet Vol. 11.1 fl (6.2-12.0); Platelet Count 255 K/mm3 (150-450); RBC Distribution Width CV 13.9 % (11.6-14.6); RBC Distribution Width SD 47.3 fl (35.1-43.9); Red Blood Count 4.24 M/mm3 (4.6-6.2); White Blood Count 7.1 K/mm3 (4.4-11.0)
[2025-01-09 10:11] LABS: Anion Gap 12 (5-15); BUN 8 mg/dL (4-19); BUN/Creat Ratio 17.9 RATIO (10-20); Calcium,Total 8.7 mg/dL (7.6-11.0); Carbon Dioxide 19.2 mmol/L (21.0-32.0); Chloride 110 mmol/L (98-108); Creatinine, Serum 0.42 mg/dL (0.70-1.20); EST Glomerular Filtration Rate 121 (>60); Glucose 120 mg/dL (70-99); Sodium Level 141 mmol/L (133-145)
== END | disposition home or self-care (01) ==
LOC: OLS.SANC 05:00
PROVIDERS: PCP Family Medicine; Visit Provider Internal Medicine
DX: D64.9 Anemia, unspecified (principal); E11.9 Type 2 diabetes mellitus without complications; G82.20 Paraplegia, unspecified
CPT/HCPCS: 36415; 80048; 85027

== ENCOUNTER → 2025-02-15 | Outpatient (REF) | payer MEDICARE, MEDICAID, SELFPAY ==
[2025-02-15 09:23] LABS: Mucous, Urine 0 SEEN /hpf (<or=2+); Squamous Epithelial Cells - UA 0 SEEN /hpf (0-5)
[2025-02-15 09:35] LABS: Color, Urine Yellow (Yellow); Glucose, Dipstick Normal (Normal); Ketone-Dipstick Negative (Negative); Leukocyte Esterase-Dipstick 500 /ul (Negative); Nitrite-Dipstick Positive (Negative); Occult Blood-Urine 250 /ul (Negative); Protein-Dipstick 100 mg/dl (Negative); Urine Bilirubin Dipstick Negative (Negative); Urine Clarity Sl. Cloudy (Clear); Urine Urobilinogen Normal (Normal); Urine pH 6.5 (5.0 - 8.0)
[2025-02-15 09:42] LABS: Bacteria 2+ /hpf (None Seen); White Blood Cells 25-50 SEEN /hpf (0-5)
[2025-02-15 09:43] LABS: Red Blood Cells-Urine 10-25 SEEN /hpf (0-5)
== END ==
LOC: OLS.SANC 04:20
PROVIDERS: PCP Family Medicine; Visit Provider Internal Medicine
DX: N39.0 Urinary tract infection, site not specified (principal)
CPT/HCPCS: 81001; 87077; 87086; 87088; 87186

== ENCOUNTER → 2025-03-01 | Outpatient (REF) | payer MEDICAID, SELFPAY ==
[2025-03-01 10:04] LABS: Hematocrit 41.2 % (40-54); Hemoglobin 12.9 g/dL (13.0-16.5); Mean Corp Hgb Conc 31.3 g/dL (32-36); Mean Corpuscular Hgb 29.5 pg (27.0-32.0); Mean Corpuscular Volume 94.3 fL (80-94); Mean Platelet Vol. 11.6 fl (6.2-12.0); Platelet Count 345 K/mm3 (150-450); RBC Distribution Width CV 15.4 % (11.6-14.6); RBC Distribution Width SD 52.4 fl (35.1-43.9); Red Blood Count 4.37 M/mm3 (4.6-6.2); White Blood Count 7.6 K/mm3 (4.4-11.0)
[2025-03-01 10:20] LABS: Anion Gap 11 (5-15); BUN 9 mg/dL (4-19); BUN/Creat Ratio 15.3 RATIO (10-20); Calcium,Total 8.5 mg/dL (7.6-11.0); Carbon Dioxide 21.8 mmol/L (21.0-32.0); Chloride 104 mmol/L (98-108); Creatinine, Serum 0.59 mg/dL (0.70-1.20); EST Glomerular Filtration Rate 109 (>60); Glucose 146 mg/dL (70-99); Sodium Level 136 mmol/L (133-145)
== END | disposition home or self-care (01) ==
LOC: OLS.SANC 05:00
PROVIDERS: PCP Family Medicine; Visit Provider Internal Medicine
DX: D64.9 Anemia, unspecified (principal); N40.0 Benign prostatic hyperplasia without lower urinary tract symptoms; E11.9 Type 2 diabetes mellitus without complications
CPT/HCPCS: 36415; 80048; 85027

== ENCOUNTER → 2025-04-16 | Outpatient (REF) | payer MEDICAID, SELFPAY | END | disposition home or self-care (01) | LOC: OLS.SANC 23:00 | PROVIDERS: PCP Family Medicine; Visit Provider Internal Medicine | DX: S31.829D Unspecified open wound of left buttock, subsequent encounter (principal); X58.XXXD Exposure to other specified factors, subsequent encounter | CPT/HCPCS: 87070; 87077; 87186; 87205 ==

== ENCOUNTER → 2025-04-18 | Outpatient (REF) | payer MEDICAID, SELFPAY ==
[2025-04-18 08:03] LABS: Mucous, Urine 0 SEEN /hpf (<or=2+); Red Blood Cells-Urine 0 SEEN /hpf (0-5); Squamous Epithelial Cells - UA 0 SEEN /hpf (0-5)
[2025-04-18 08:26] LABS: Color, Urine Yellow (Yellow); Glucose, Dipstick 100 mg/dl (Normal); Ketone-Dipstick Negative (Negative); Leukocyte Esterase-Dipstick 500 /ul (Negative); Nitrite-Dipstick Positive (Negative); Occult Blood-Urine 50 /ul (Negative); Protein-Dipstick 100 mg/dl (Negative); Specific Gravity, Urine 1.015 (1.002-1.030); Urine Bilirubin Dipstick Negative (Negative)
[2025-04-18 08:42] LABS: Triple Phosphate Crystals Ur 4+ /hpf (<or=1+)
== END | disposition home or self-care (01) ==
LOC: OLS.SANC 05:34
PROVIDERS: PCP Family Medicine; Visit Provider Internal Medicine
DX: N39.0 Urinary tract infection, site not specified (principal)
CPT/HCPCS: 81001; 87077; 87086; 87088; 87186

== ENCOUNTER → 2025-05-01 05:00 | Outpatient (REF) | payer MEDICARE, MEDICAID, SELFPAY ==
--- OUTSIDE RECORDS SUMMARY | 2025-05-01 04:24 | XMS RPT_ITS | CCD ---
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 Name Role Phone YARITZA, GALE A Unavailable Unavailable YARITZA, GALE A Unavailable Unavailable ESTERLE, AMBROSIO Unavailable Unavailable YARITZA, GALE A Unavailable Unavailable YARITZA, GALE A Unavailable Unavailable ESTERLE, AMBROSIO Unavailable Unavailable SATYAN, ELLIOT B Unavailable Unavailable SATYAN, ELLIOT B Unavailable Unavailable NO REFERRING DR Unavailable Unavailable JUAN MIGUEL ANN Unavailable Unavailable NO FAMILY PHYSICIAN, 837 Unavailable Unavail able Esterle, Ambrosio Unavailable Unavailable Esterle, Ambrosio Unavailable Unavailable Esterle, Ambrosio Unavailable Unavailable Meliton Brandt Unavailable Unavailable Esterle, Ambrosio Unavailable Unavailable Esterle, Ambrosio Unavailable Unavailable Esterle, Ambrosio M Primary Care Provider [phone] YARITZA, GALE Admitting Unavailable ORLANDO PATEL Consulting Unavailable ESTERLE, AMBROSIO M Primary Care Unavailable YARITZA, GALE Attending Unavailable ESTERLE, AMBROSIO M Primary Care Unavailable YARITZA, GALE Referring Unavailable YARITZA, GALE Attending Unavailable Unavailable Unavailable Esterle DO, Ambrosio M Primary Care Provider Jolie IRWIN, Penny Ayala Unavailable Marquez IRWIN, Gayle Valentin Unavailable Esterle DO, Ambrosio M Unavailable Esterle DO, Ambrosio M Primary Care Provider Unavailable Primary Care Provider Unavailabl e Placeway DO, Vaishali Unavailable Esterle DO, Ambrosio M Primary Care Provider Joan Patel MD Unavailable Esterle DO, Ambrosio M Primary Care Provider [phone] Tab Dupont Primary Care Provider Jackie IRWIN, Otis Vasques Unavailable [phone] Ying BAUGH Giuliano Unavailable [phone] Blanco DO, Faisal Unavailable BERAN JOHNSON Referring Unavailable PROVIDER, UNKNOWN Attending Unavailable PROVIDER, UNKNOWN Admitting Unavailable PROVIDER, UNKNOWN Attending Unavailable PROVIDER, UNKNOWN Admitting Unavailable PLACEWAY, VAISHALI Referring Unavailable BLANCO, FAISAL Attending Unavailable PROVIDER, UNKNOWN Admitting Unavailable PROVIDER, UNKNOWN Admitting Unavailable PLACEWAY, VAISHALI Referring Unavailable JACKIE, OTIS Vasques Attending Unavailable PROVIDER, UNKNOWN Attending Unavailable PROVIDER, UNKNOWN Admitting Unavailable PLACEWAY, VAISHALI Referring Unavailable BELTR, OTIS Vasques Referring Unavailable PROVIDER, UNKNOWN Attending Unavailable PROVIDER, UNKNOWN Admitting Unavailable PROVIDER, UNKNOWN Attending Unavailable PROVIDER, UNKNOWN Admitting Unavailable PROVIDER, UNKNOWN Admitting Unavailable GIULIANO SHULTZ Attending Unavailable BLANCO, FAISAL Attending Unavailable BLANCO, FAISAL Referring Unavailable PROVIDER, UNKNOWN Admitting Unavailable PROVIDER, UNKNOWN Admitting Unavailable PLACEWAY, VAISHALI Attending Unavailable PROVIDER, UNKNOWN Attending Unavailable PROVIDER, UNKNOWN Admitting Unavailable PLACEWAY, VAISHALI Referring Unavailable PROVIDER, UNKNOWN Attending Unavailable PROVIDER, UNKNOWN Admitting Unavailable JACKIE, OTIS Vasques Referring Unavailable Dr. Ambrosio Monroy DO Primary Care Provider [phone] Tab Joshi Attending Provider Unavailab Tab Benson Referring Provider UnavailDr. Daisy Matthews MD Attending Provider Dr. Daisy Garay MD Referring Provider Katty Monroy DO, Dr. Ambrosio Ayala Primary Care Provider [phone] Tab Joshi Attending Provider Unavailab Tab Benson Referring Provider Unavailab Dr. Daisy Li MD Attending Provider Dr. Daisy Garay MD Referring Provider Penny De La Cruz MD Unavailable [phone] Gayle Scott MD Unavailable [phone] Ambrosio Monroy MD Unavailable Dr. Ambrosio Monroy DO Primary Care Provider [phone] Tab Joshi Attending Provider Unavailab KRISTINE Foster Referring Unavailable MILAD GOODSON Attending Unavailable MILAD GOODSON Attending Unavailable aTb Dupont MD Primary Care Provider HOWARD GAMA Admitting Unavail able GAYLE SCOTT Consulting Unavailable CHUY PADILLA Attending Unavailable TAB DUPONT Primary Care Unavaila ble LUPILLO, ANMOL PINON Referring Unavail able LUPILLO, ANMOL PINON Attending Unavail able LUPILLO, ANMOL PINON Admitting Unavail able TAB DUPONT Primary Care Unavaila ble JOAN PATEL Admitting Unavailable JOAN PATEL Attending Unavailable ESTERLE, AMBROSIO Primary Care Unavailable KODAKANDLA, NARSIMHA Admitting Unavailable KEYSHAWN, ALONSOA Attending Unavailable KATSAROS, PETER Primary Care Unavailable KATSAROS, PETER Primary Care Unavailable GEORGETTE BUENO Admitting Unavailable BERHANE MORENO Attending Unavailable JO-ANN ORTIZ Consulting Unavailable YOANA SOLITARIO Attending Unavailable ADIRANNESAROS, PETER Primary Care Unavailable Katsaros Tab MURO Attending Unavailable Esterle, Ambrosio M Primary Care Unavailable Tab Joshi Referring Unavailable Katsaros Tab MURO Attending Unavailable Esterle, Ambrosio M Primary Care Unavailable Katsaros Tab MURO Attending Unavailable Esterle, Ambrosio M Primary Care Unavailable Katsaros Tab MURO Attending Unavailable Esterle, Ambrosio M Primary Care Unavailable Katsaros Tab MURO Attending Unavailable Esterle, Ambrosio M Primary Care Unavailable Katsaros JINA, Tab Attending Unavailable Esterle, Ambrosio M Primary Care Unavailable Katsaros Tab MURO Attending Unavailable Esterle, Ambrosio M Primary Care Unavailable Katsaros Tab MURO Attending Unavailable Esterle, Ambrosio M Primary Care Unavailable Katsaros Tab MURO Attending Unavailable Esterle, Ambrosio M Primary Care Unavailable Katsaros Tab MURO Attending Unavailable Esterle, Ambrosio M Primary Care Unavailable Costello Ward M[facility]home Attending Unavailable Esterle, Ambrosio M Primary Care Unavailable Costellojessica MURO [facility] Referring Unavailable Katsaros Tab MURO Attending Unavailable Esterle, Ambrosio M Primary Care Unavailable Katsaros Tab MURO Attending Unavailable Esterle, Ambrosio M Primary Care Unavailable Katsaros Tab MURO Attending Unavailable Esterle, Ambrosio M Primary Care Unavailable Katsaros JINA, Tab Attending Unavailable Esterle, Ambrosio M Primary Care Unavailable Katsaros Tab MURO Attending Unavailable Esterle, Ambrosio M Primary Care Unavailable Katsaros JINA, Tab Attending Unavailable Ambrosio Monroy Primary Care Unavailable Tab Joshi Attending Unavailable Ambrosio Monroy Primary Care Unavailable Tab Joshi Attending Unavailable Ambrosio Monroy Primary Care Unavailable Medications Current Medications Medication Drug Class(es) Dates Sig (Normalized) Sig (Original) acetaminophen 325 mg oral tablet (20 sources) Start: 04-28-2025 End: 05-08-2025 take 2 tablets by mouth every six hours as needed for pain and fever acetaminophen (Tylenol) 325 MG tablet Take 2 tablets (650 mg) by mouth every 6 hours as needed for mild pain (1-3) or fever (For temp greater than 100.4 F (38 C)) for up to 10 days. 04/28/2025 05/08/2025 Active Start: 04-22-2025 End: 04-29-2025 take 1 tablet by mouth every six hours as needed for pain and fever acetaminophen (Tylenol) tablet 650 mg Start: 05-18-2024 End: 05-22-2024 take 1 tablet by mouth every six hours as needed for pain and fever acetaminophen (Tylenol) tablet 650 mg Start: 05-05-2024 End: 05-06-2024 take 1 tablet by mouth every six hours as needed for pain and fever acetaminophen (Tylenol) tablet 650 mg Start: 05-05-2024 End: 05-05-2024 1,000 mg, Oral, Once, On Fabiola 05/05/24 at 1115, For 1 dose, Preprocedure, Administer 60 minutes prior to surgery. Start: 10-24-2020 take 650 mg by mouth every four hours for pain 650 mg, Oral, EVERY 4 HOURS PRN, Other, Pain (1-10), Starting 10/24/20 at 1942 Give in addition to any other pain medication ordered at same time for any pain indication. Post-op End: 04-29-2025 take 2 tablets by mouth every six hours as needed acetaminophen (Tylenol) 325 MG tablet Take 650 mg by mouth every 6 hours as needed. For elevated temp and/or pain. Do not exceed 3 grams in 24 hour period. 04/29/2025 Discontinued (Stop taking at discharge) take 2 capsules by m outh every six hours as needed acetaminophen 325 mg cap Take 2 capsules by mouth every 6 hours as needed for pain or fever (specify temp.). Active acetaminophen (T ylenol) 325 MG tablet Take by mouth. Active acetaminophen 325 mg / oxyCODONE hydrochloride 5 mg oral tablet (1 source) Opioid Agonist Start: 08-28-2020 oxyCODONE-acet aminophen (PERCOCET) 5-325 MG per tablet acetic acid 2.5 mg/ml irrigation solution (20 sources) Start: 12-12-2023 End: 04-29-2025 acetic acid 0.25 % irrigatio n 12/12/2023 04/29/2025 Discontinued (Stop taking at discharge) Start: 12-12-2023 alogliptin 25 mg oral tablet (20 sources) Start: 12-09-2023 End: 04-29-2025 alogliptin (Nesina) 25 MG tablet daily. 12/09/2023 04/29/2025 Discontinued (Stop taking at discharge) ampicillin-sulba ctam 3,000 mg in sodium chloride 0.9 % 100 mL IVPB (2 sources) Start: 04-28-2025 End: 06-06-2025 take 3000 mg intravenously every six hours ampicillin-sulbac marquis 3,000 mg in sodium chloride 0.9 % 100 mL IVPB Infuse 3,000 mg into a venous catheter every 6 hours. stop date of antibiotic is 06/06/2025 04/28/2025 06/06/2025 Active ascorbic acid 500 mg oral tablet (2 sources) Vitamin C take 500 mg by mouth twice daily ASCORBIC ACID ORAL Take 500 mg by mouth twice daily. Active aspirin 81 mg chewable tablet (20 sources) Platelet Aggregation Inhibitor, Nonsteroidal Anti-inflammatory Drug Start: 02-22-2025 take 1 tablet by mouth once daily aspirin 81 mg chewable tablet 1 tablet by ORAL/FEEDING TUBE route once daily. 02/22/2025 Active Start: 05-05-2024 End: 04-29-2025 take 81 mg by mouth once daily 81 mg, Oral, Daily, Fir st dose on Thu05/18/24 at 0900, Do not crush, chew, or split. Start: 01-25-2022 take 1 tablet by mouth once da nima aspirin 81 mg chewable tablet 1 tablet by ORAL/FEEDING TUBE route once daily. 01/25/2022 Active Start: 01-25-2022 take 1 tablet by mouth once da nima aspirin 81 mg chewable tablet 1 tablet by ORAL/FEEDING TUBE route once daily. 0 01/25/2022 Active Comment on above: 1 tablet by ORAL/FEE DING TUBE route once daily. atorvastatin 40 mg oral tablet (1 source) HMG-CoA Reductase Inhibitor Start: 0 take 1 tablet by mouth once daily atorvastatin (LIPITOR) 40 MG tablet take 1 tablet by mouth once daily 0 08/17/2020 Active benzocaine 15 mg / menthol 3.6 mg oral lozenge (1 source) Standardized Chemical Allergen Start: 1 benzocaine-menthol (CEPACOL SORE THROAT) lozenge 1 lozenge bisacodyl (Dulcolax) 5 mg split suppository (20 sources) End: 5 bisacodyl (Dulcolax) 5 mg split suppository Insert into the rectum Daily as needed. 04/29/2025 Discontinued (Stop taking at discharge) bisacodyl (Dulco lax) 5 mg split suppository Insert into the rectum Daily as needed. Suspended bisacodyl (Dulco lax) 5 mg split suppository Insert into the rectum Daily as needed. Active bisacodyl (Dulco lax) 5 mg split suppository Insert into the rectum. Active bisacodyl (Dulco lax) 5 mg split suppository Insert into the rectum. Suspended bisacodyl (Dulco lax) 5 mg split suppository Insert into the rectum. 0 Active cephalexin 500 mg oral capsule (2 sources) Cephalosporin Antibacterial Start: 05-23-2023 End: 06-02-2023 cephalexin (Keflex) 500 MG capsule Take 1 capsule (500 mg) by mouth in the morning and 1 capsule (500 mg) at noon and 1 capsule (500 mg) in the evening and 1 capsule (500 mg) before bedtime. Do all this for 10 days. 40 capsule 0 05/23/2023 06/02/2023 Active cilastatin 250 mg / imipenem 250 mg injection (17 sources) Penem Antibacterial, Renal Dehydropeptidase Inhibitor Start: 03-30-2024 imipenem-cilastat in (PRIMAXIN) 250 MG injection 03/30/2024 Active 24 hr dapagliflozin 10 mg / metFORMIN hydrochloride 1000 mg extended release oral tablet (1 source) Biguanide, Sodium-Glucose Cotransporter 2 Inhibitor Start: 07-02-2017 XIGDUO XR 10-1000 MG TB24 DAPTOmycin 825 mg in NaCl 0.9% 50 mL (CUBICIN) (1 source) Start: 01-24-2022 End: 02-25-2022 take 825 mg intravenously every twenty-four hours DAPTOmycin 825 mg in NaCl 0.9% 50 mL (CUBICIN) Inject 825 mg intravenously q 24 [place]. [id number] mg 0 01/24/2022 02/25/2022 Active Comment on above: Inject 825 mg intrav enously q 24 HR. diazePAM 5 mg oral tablet (2 sources) Benzodiazepine Start: 10-25-2020 End: 10-30-2020 take 1 tablet by mouth every six hours as needed diazePAM (VALIUM) 5 MG tablet Indications: Muscle spasm Take 1 tablet by mouth every 6 hours as needed (muscle spasma) for up to 5 days. 20 tablet 0 10/25/2020 10/30/2020 Active gabapentin 300 mg oral capsule (6 sources) Anti-epileptic Agent Start: 04-28-2023 take 2 capsules by mouth three times daily gabapentin (NEURONTIN) 300 mg capsule Take 2 capsules by mouth three times daily for 180 days. 180 capsule 5 04/28/2023 Active Start: 01-24-2022 End: 02-23-2022 take 1 capsule by mouth every twelve hours gabapentin (NEURONTIN) 300 mg capsule Take 1 capsule by mouth every 12 hours for 30 days. 0 01/24/2022 Active take [address] [facility] twice daily gabapentin (NEURONTIN) 300 MG capsule Take 300 mg by mouth 2 times daily 0 Active Comment on above: Take [address] [facility] every 12 hours for 30 days. HYDROmorphone (DILAUDID) injection 0.25 mg (1 source) Start: 10-24-19 HYDROmorphone (DILAUDID) injection 0.25 mg hydrOXYzine hydrochloride 25 mg oral tablet (5 sources) Antihistamine Start: 01-25-20 take 1 tablet by mouth every six hours as needed hydrOXYzine HCl (ATARAX) 25 mg tablet Take 1 tablet by mouth every 6 hours as needed (Anxiety). 01/24/2022 Active Comment on above: Take 1 tablet by [facility] every 6 hours as needed (Anxiety). hyoscyamine sulfate 0.125 mg sublingual tablet (19 sources) Start: 05-02-20 Hyoscyamine Sulfate SL 0.[address] 0.125 mg under the tongue every 8 hours as needed. 05/02/2023 Active hypromellose 3 mg/ml ophthalmic solution (20 sources) End: 04-29-20 Hypromellose (Pure & Gentle Lubricant) 0.3 % solution Administer 1 drop into affected eye(s) if needed. 04/29/2025 Discontinued (Stop taking at discharge) artificial tear, Hypromellose, 0.3 % drop Use 1 Drop in both eyes as needed. 0 Active Comment on above: Use 1 Drop in both e yes as needed. ibuprofen 600 mg oral tablet (1 source) Nonsteroidal Anti-inflammatory Drug Start: 05-04-20 take 1 tablet by mouth every six hours as needed ibuprofen (ADVIL;MOTRIN) 600 MG tablet Take 600 mg by mouth every 6 hours as needed 0 05/04/2020 Active insulin glargine 100 unt/ml injectable solution (20 sources) Insulin Analog Start: 04-27-20 End: 04-29-20 inject 28 [IU] by subcutaneous injection once daily in the morning insulin glargine (Lantus) 100 UNIT/ML injection Inject 28 Units under the skin every morning. 04/29/2025 04/29/2026 Active Start: 04-26-2025 End: 04-27-2025 inject 25 [IU] by subcutaneous injection once daily in the morning 25 Units, SubCUTAneous, Every morning, First dose (after last modification) on Thu04/26/25 at 0900 Start: 04-24-2025 End: 04-25-2025 inject 22 [IU] by subcutaneous injection once daily in the morning 22 Units, SubCUTAneous, Every morning, First dose (after last modification) on Thu04/24/25 at 0900 Start: 04-22-2025 End: 04-23-2025 inject 45 [IU] by subcutaneous injection once daily in the morning 45 Units, SubCUTAneous, Every morning, First dose on Thu04/22/25 at 0900 Start: 02-22-2025 inject 20 [IU] by singh bcutaneous injection once daily in the morning insulin glargine 100 unit/mL (3 mL) Inject 20 Units subcutaneously every morning. 02/22/2025 Active Start: 05-18-2024 End: 05-22-2024 inject 45 [IU] by subcutaneous injection once daily in the morning 45 Units, SubCUTAneous, Every morning, First dose on Thu05/18/24 at 0900 Start: 05-06-2024 End: 05-06-2024 inject 45 [IU] by subcutaneous injection once daily in the morning 45 Units, SubCUTAneous, Every morning, First dose on Thu05/06/24 at 0900 Start: 04-15-2024 End: 04-20-2024 Start: 04-28-2023 End: 04-29-2025 inject 45 [IU] by subcutaneous injection once daily in the morning insulin glargine (Lantus) 100 UNIT/ML pen Inject 45 Units under the skin every morning. 04/28/2023 04/29/2025 Discontinued (Stop taking at discharge) Start: 04-28-2023 insulin glargi ne (LANTUS SOLOSTAR/BASAGLAR KWIKPEN) 100 UNIT/ML pen Inject 45 Units under the skin. 04/28/2023 Active Start: 01-24-2022 insulin glargi ne (LANTUS SOLOSTAR, BASAGLAR KWIKPEN) 100 unit/mL (3 mL) Inject 30 Units subcutaneously every morning. 0 01/24/2022 Active Comment on above: Inject 30 Units subc utaneously every morning. insulin lispro 100 unt/ml injectable solution (20 sources) Insulin Analog Start: 04-24-2025 End: 04-28-2026 Insulin Lispro (Humalog) 100 UNIT/ML solution injection Inject 0-18 Units under the skin Nightly. If eating or bolus tube feeding: High Dose Correction Algorithm Glucose: Dose: LESS than 150 No Insulin 150-199 3 Units 200-249 6 Units 250-299 9 Units 300-349 12 Units 350-400 15 Units Above 400 18 Units 04/28/2025 04/28/2026 Active Start: 04-22-2025 End: 04-28-2026 Insulin Lispro (Humalog) 100 UNIT/ML solution injection Inject 0-18 Units under the skin 3 times daily (with meals). High Dose Correction Algorithm Glucose: Dose: LESS than 150 No Insulin 150-199 3 Units 200-249 6 Units 250-299 9 Units 300-349 12 Units 350-400 15 Units Above 400 18 Units 04/28/2025 04/28/2026 Active Start: 02-22-2025 insulin lispro 100 unit/mL injection Inject 0-15 Units subcutaneously with meals and at bedtime. ADMINISTER CORRECTIONAL INSULIN REGARDLESS OF MEAL OR NUTRITION INTAKE Scale 3 If Blood Glucose (mg/dL) is: Less than 110 Give 0 units 111-150 Give 1 unit 151-200 Give 3 units 201-250 Give 6 units 251-300 Give 9 units 301-350 Give 12 units 351-400 Give 15 units Greater than 400 Give 15 units and Notify Provider Notify provider if 2 consecutive blood glucose values in the previous 24 hours are greater than 250 mg/dL and there have been no changes to the insulin regimen in the previous 24 hours. 02/22/2025 Active Start: 04-28-2023 insulin lispro 100 unit/mL injection Inject 0-28 Units subcutaneously three times daily before meals. ADMINISTER CORRECTIONAL INSULIN REGARDLESS OF MEAL OR NUTRITION INTAKE Scale CUSTOM If Blood Glucose (mg/dL) is: Less than 110 Give 0 units 111-150 Give 0 units 151-200 Give 14 units 201-250 Give 18 units 251-300 Give 20 units 301-350 Give 22 units 351-400 Give 28 units Greater than 400 Give 28 units and Notify Provider Notify provider if 2 consecutive blood glucose values in the previous 24 hours are greater than 250 mg/dL and there have been no changes to the insulin regimen in the previous 24 hours. 04/28/2023 Active Start: 04-28-2023 inject 8 [IU] by sub cutaneous injection at mealtime insulin lispro 100 unit/mL injection Inject 8 Units subcutaneously w MEALS. 04/28/2023 Active Start: 02-26-2022 End: 04-29-2025 Insulin Lispro (Humalog) 100 UNIT/ML solution injection Inject 0-28 Units under the skin. 0-160=0 units; 161-200=14 units, 201-250=18 units, 251-300=20 units 301-350=22 units, 351-400=28 units, 401 or higher give 28 units and call physician. 04/28/2023 04/29/2025 Discontinued (Stop taking at discharge) Start: 01-24-2022 inject 5 [IU] by sub cutaneous injection at mealtime insulin lispro (HUMALOG KWIKPEN) 100 unit/mL Inject 5 Units subcutaneously w MEALS. 0 01/24/2022 Active Start: 10-24-2020 insulin lispro (HUMALOG) injection vial 0-12 Units Comment on above: Inject 5 Units subcu taneously w MEALS. magnesium hydroxide 80 mg/ml oral suspension (20 sources) Start: 10-24-19 take 30 mL by mouth once daily as needed for constipation 30 mL, Oral, DAILY PRN, Constipation, Starting Thu10/24/20 at 1942 First line therapy for constipation. Post-op End: 04-29-2025 take 30 mL by mouth every twenty-four hours as needed Magnesium Hydroxide (MILK OF MAGNESIA PO) Take 30 mL by mouth Daily as needed. 04/29/2025 Discontinued (Stop taking at discharge) take 30 mL by mouth every twenty-four hours as needed Magnesium Hydroxide (MILK OF MAGNESIA PO) Take 30 mL by mouth Daily as needed. Active take 30 mL by mouth every twenty-four hours as needed Magnesium Hydroxide (MILK OF MAGNESIA PO) Take 30 mL by mouth Daily as needed. Suspended melatonin 3 mg oral tablet (5 sources) Start: 01-24-2022 take 3 tablets by mouth once daily at bedtime melatonin 3 mg tablet Take 3 tablets by mouth daily at bedtime. 01/24/2022 Active Comment on above: Take 3 tablets by mo ut daily at bedtime. meloxicam 7.5 mg oral tablet (1 source) Nonsteroidal Anti-inflammatory Drug Start: 09-02-2020 meloxicam (MOBIC) 7.5 MG tablet Multiple Vitamin (multivitamin) capsule (20 sources) take 1 capsule by mouth once daily Multiple Vitamin (multivitamin) capsule Take 1 capsule by mouth daily. Active take 1 capsule by mouth once ethel ly Multiple Vitamin (multivitamin) capsule Take 1 capsule by mouth daily. Suspended Multiple Vitamin (multivitamins) capsule (17 sources) take 1 capsule by mouth once daily Multiple Vitamin (multivitamins) capsule Take 1 Capsule by mouth daily. Active naloxone hydrochloride 40 mg/ml nasal spray (20 sources) Opioid Antagonist Start: 04-28-20 End: 04-28-20 naloxone (Narcan) 4 MG/0.1ML nasal spray Administer 1 spray (4 mg) into affected nostril(s) as needed for opioid reversal. May repeat every 2-3 minutes if needed, alternating nostrils, until medical assistance becomes available. 04/28/2025 04/28/2026 Active Start: 04-22-2025 End: 04-29-2025 Start: 05-18-2024 End: 05-22-2024 0.4 mg, IntraVENous, Every 5 min PRN, opioid reversal, respiratory depression, Starting on Thu05/18/24 at 0051, +++ For RR Start: 05-05-2024 End: 05-06-2024 0.4 mg, IntraVENous, Every 5 min PRN, opioid reversal, respiratory depression, Starting on Fabiola 05/05/24 at 1816, +++ For RR Start: 04-14-2024 End: 04-20-2024 Start: 04-29-2023 End: 04-29-2025 naloxone (Narcan) 4 mg/0.1 m L nasal spray 04/29/2023 04/29/2025 Discontinued (Stop taking at discharge) Start: 01-24-2022 naloxone 4 mg/ actuation nasal spray (NARCAN) Use 1 spray in one nostril as needed for overdose. May repeat every 2 to 3 min in alternating nostrils until medical assistance is available 0 01/24/2022 Active Comment on above: Use 1 spray in one n ostril as needed for overdose. May repeat every 2 to 3 min in alternating nostrils until medical assistance is available nitrofurantoin, macrocrystals 25 mg / nitrofurantoin, monohydrate 75 mg oral capsule (3 sources) Nitrofuran Antibacterial Start: End: take 1 capsule by mouth twice daily in the evening nitrofurantoin monohydrate macrocrystal (Macrobid) 100 MG capsule Take 1 Capsule by mouth 2 times daily for 5 days. 10 Capsule 09/30/2024 2:36 PM EST 09/30/2024 10/05/2024 Active nortriptyline 50 mg oral capsule (17 sources) Tricyclic Antidepressant take 1 capsule by mouth once daily at bedtime nortriptyline (PAMELOR) 50 MG capsule 1 cap(s) orally once daily at bedtime Active ondansetron (ZOFRAN-ODT) disintegrating tablet 4 mg (1 source) Start: ondansetron (ZOFRAN-ODT) disintegrating tablet 4 mg Semaglutide (RYBELSUS) 7 MG TABS (1 source) take 1 tablet by mouth once daily Semaglutide (RYBELSUS) 7 MG TABS Take by mouth daily 0 Active simethicone 80 mg chewable tablet (5 sources) Start: take 1 tablet by mouth every six hours as needed simethicone, chewable (MYLICON) 80 mg chewable tablet Take 1 tablet by mouth four times daily as needed. 01/24/2022 Active Comment on above: Take 1 tablet by [facility] four times daily as needed. sulfamethoxazole 800 mg / trimethoprim 160 mg oral tablet (11 sources) Dihydrofolate Reductase Inhibitor Antibacterial, Sulfonamide Antimicrobial Start: End: take 1 tablet by mouth every twelve hours sulfamethoxazole-tri methoprim (Bactrim DS) 800-160 MG tablet 1 tablet every 12 hours. 03/01/2025 04/29/2025 Discontinued (Stop taking at discharge) tamsulosin hydrochloride 0.4 mg oral capsule (20 sources) alpha-Adrenergic Savi Start: take 1 capsule by mouth once daily tamsulosin (Flomax) 0.4 MG 24 hr capsule Take 1 capsule (0.4 mg) by mouth daily. 04/29/2025 Active Start: 04-29-2025 take 1 capsule by [facility] once daily tamsulosin (Flomax) 0.4 MG 24 hr capsule Take 1 capsule (0.4 mg) by mouth daily. 04/29/2025 Active Start: 11-30-2023 tamsulosin (Fl omax) 0.4 MG 24 hr capsule 11/30/2023 Active Start: 12-18-2021 End: 04-29-2025 take 0.4 mg by mouth once daily 0.4 mg, Oral, Daily, F irst dose on 04/22/25 at 0900, Do not crush, chew, or split. Comment on above: Take 1 capsule by mo [facility] once [facility]. therapeutic multivitamin-minera ls (THERA-M PLUS) 9 mg iron-400 mcg tablet (3 sources) therapeutic multivitamin-hard rock miner als (THERA-M PLUS) 9 mg iron-400 mcg tablet Take 1 tablet by mouth once daily. Active Vancomycin (6 sources) Glycopeptide Antibacterial Start: 025 End: 025 take 1500 mg intravenously every twelve hours vancomycin IVPB 1500 mg in 250 mL NS (premix) Infuse 250 mL (1,500 mg) into a venous catheter every 12 hours. stop date of antibiotic is 06/06/2025 04/29/2025 06/06/2025 Active Start: 04-22-2025 End: 04-29-2025 take 1500 mg intravenously every twelve hours 1,500 mg, IntraVENous, at 125 mL/hr, Administer over 120 Minutes, Every 12 hours, First dose (after last reorder) on Thu04/22/25 at 1230, premix bag, Suspected Indication (Select all that apply): Skin and Soft Tissue Infection Start: 04-21-2025 End: 04-22-2025 1,500 mg, IntraVENous, at 12 5 mL/hr, Administer over 120 Minutes, Once, On Thu04/21/25 at 2235, For 1 dose, premix bag, Suspected Indication (Select all that apply): Skin and Soft Tissue Infection zinc sulfate 220 mg oral capsule (20 sources) Start: 02-27-2022 take 1 capsule by mouth once daily zinc sulfate (ZINCATE) 220 (50 Zn) MG capsule Take 220 mg by mouth daily. 02/27/2022 Active (2 sources) Completed/Discontinued Medications Medication Drug Class(es) Dates Sig (Normalized) Sig (Original) amoxicillin 875 mg / clavulanate 125 mg oral tablet (1 source) Penicillin-class Antibacterial Start: 10-05-2015 take 1 tablet by mouth twice daily after mealtime Amoxicillin-Pot Clavulanate 875-125 MG Oral Tablet TAKE 1 TABLET TWICE DAILY AFTER MEALS Quantity: 20 Refills: 0 Ordered: 05-Oct-2015 Lauryn Concepcion MD Start : 05-Oct-2015 Active ampicillin-sulbacta m (Unasyn) 3,000 mg in sodium chloride 0.9 % 100 mL IVPB (Add-[place]) (2 sources) Start: 04-26-2025 End: 04-29-2025 take 3000 mg intravenously every six hours 3,000 mg, IntraVENous, at 200 mL/hr, Administer over 30 Minutes, Every 6 hours, First dose on Thu04/26/25 at 1230, ADD-[place] bag, Suspected Indication (Select all that apply): Bone and Joint Infection apixaban 5 mg oral tablet (16 sources) Factor Xa Inhibitor Start: 02-22-2025 End: 04-29-2025 take 5 mg by mouth twice daily 5 mg, Oral, 2 times daily, First dose on 04/22/25 at 0245, Anticoagulant betamethasone 0.5 mg/ml / clotrimazole 10 mg/ml topical cream (13 sources) Azole Antifungal, Corticosteroid Start: 11-17-2023 End: 05-22-2024 clotrimazole-betam ethasone (Lotrisone) cream 11/17/2023 05/22/2024 Discontinued (Stop taking at discharge) bisacodyl 10 mg rectal suppository (20 sources) Stimulant Laxative Start: 04-22-2025 End: 04-29-2025 take 10 mg rectal route every twenty-four hours as needed 10 mg, Rectal, Daily PRN, constipation, 3rd line, Starting on 04/22/25 at 1430 Start: 01-24-2022 End: 05-22-2024 take 1 tablet by mouth every twenty-four hours as needed for constipation Start: 12-17-2021 bisacodyl (DUL COLAX) 10 mg supp 1 Suppository by RECTAL route once daily as needed. 12/17/2021 Active Start: 10-24-2020 End: 04-29-2025 take 1 tablet by mouth every twenty-four hours as needed for constipation 5 mg, Oral, Daily PRN, constipation, 2nd line, Starting on 04/22/25 at 1429, Do not give within 1 hour of antacids, milk, or dairy products. Do not crush, chew, or split. Comment on above: 1 Suppository by REC ELSIE route once daily as needed. Take 1 tablet by jeison th twice daily. calcium carbonate 500 mg chewable tablet (20 sources) Start: 04-22-2025 End: 04-29-2025 take 1 tablet by mouth every eight hours as needed for gastroesophageal reflux disease Start: 05-18-2024 End: 05-22-2024 take 1 tablet by mouth every eight hours as needed for gastroesophageal reflux disease take 2 tablets by mo uth every eight hours as needed for gastroesophageal reflux disease calcium carbonate (Tums) 500 MG chewable tablet 1,000 mg every 8 hours as needed for indigestion or heartburn. Active take 500 mg by mouth every eight hours as needed calcium carbonate (TUMS) 500 mg chew Take 500 mg by mouth every 8 hours as needed (heartburn). Active calcium chloride 0.0014 meq/ml / potassium chloride 0.004 meq/ml / sodium chloride 0.103 meq/ml / sodium lactate 0.028 meq/ml injectable solution (9 sources) Start: 04-24-2025 End: 04-24-2025 take 125 mL intravenously every hour 125 mL/hr, IntraVENous, Continuous, Starting on Thu04/24/25 at 0900, Recovery (only) Start: 05-05-2024 End: 05-06-2024 take 50 mL intravenously every hour 50 mL/hr, IntraVENous, Continuous, Starting on Fabiola 05/05/24 at 1115, Preprocedure, Upon admission to sameday - please start iv if patient does not have iv access. Use 500ml NS for patients on dialysis. Start: 04-14-2024 End: 04-15-2024 Start: 10-24-2020 End: 10-24-2020 lactated ringers infusion ceFAZolin 2000 mg injection (1 source) Cephalosporin Antibacterial Start: 10-24-2020 End: 10-25-2020 2,000 mg, Intravenous, EVERY 8 HOURS, 2 doses, First dose on Thu10/24/20 at 1845, Last dose on Thu10/25/20 at 0245, Post-op cefepime (Maxipime) 2,000 mg in sodium chloride 0.9 % 50 mL IVPB Mini-Bag Plus (6 sources) Start: 04-22-2025 End: 04-22-2025 take 2000 mg intravenously every eight hours 2,000 mg, IntraVENous, at 12.5 mL/hr, Administer over 240 Minutes, Every 8 hours, First dose on Thu04/22/25 at 0800, Mini-Bag Plus bag, Suspected Indication (Select all that apply): Skin and Soft Tissue Infection Start: 04-21-2025 End: 04-21-2025 2,000 mg, IntraVENous, at 10 0 mL/hr, Administer over 30 Minutes, Once, On Thu04/21/25 at 2240, For 1 dose, Mini-Bag Plus bag, Suspected Indication (Select all that apply): Skin and Soft Tissue Infection Start: 05-18-2024 End: 05-20-2024 take 2000 mg intravenously every eight hours 2,000 mg, IntraVENous, at 12.5 mL/hr, Administer over 4 Hours, Every 8 hours, First dose on Thu05/18/24 at 2000, Mini-Bag Plus bag, Suspected Indication (Select all that apply): Urinary Tract Infection cefTRIAXone (Rocephin) 1,000 mg in sodium chloride 0.9 % 50 mL IVPB Mini-Bag Plus (2 sources) Start: 05-05-2024 End: 05-06-2024 1,000 mg, IntraVENous, at 100 mL/hr, Administer over 30 Minutes, Every 24 hours, First dose on Thu05/05/24 at 2300, Mini-Bag Plus bag, Suspected Indication (Select all that apply): Urinary Tract Infection Chlorhexidine (2 sources) Start: 04-23-2025 End: 04-29-2025 apply 1 dose topically once daily Topical, Daily, First dose on Thu04/23/25 at 1400 cholecalciferol 9.52 unt/ml / glucose 357 mg/ml oral gel (8 sources) Vitamin D Start: 04-22-2025 End: 04-29-2025 Start: 05-18-2024 End: 05-22-2024 Start: 05-05-2024 End: 05-06-2024 15 g, Oral, As needed, low b lood sugar, Starting on Thu05/05/24 at 1821, If blood glucose less than 50 mg/dL and patient ALERT and NOT NPO, give 2 tubes glucose gel. If blood glucose less than 70 mg/dL and patient ALERT and NOT NPO, give 1 tube glucose gel. Repeat blood glucose in 15 minutes. If blood glucose is less than 70 mg/dL, repeat treatment and recheck blood glucose in 15 minutes x2 and notify provider. Start: 04-14-2024 End: 04-20-2024 ciprofloxacin 500 mg oral tablet (2 sources) Quinolone Antimicrobial End: 05-22-2024 take 1 tablet by mouth twice daily ciprofloxacin (Cipro) 500 MG tablet Take 500 mg by mouth 2 times daily. 05/22/2024 Discontinued (Stop taking at discharge) cyclobenzaprine hydrochloride 10 mg oral tablet (20 sources) Muscle Relaxant Start: 12-17-2021 End: 04-29-2025 take 10 mg by mouth three times daily as needed for muscle spasms 10 mg, Oral, 3 times daily PRN, muscle spasms, Starting on 04/22/25 at 0237 Comment on above: Take 1 tablet by [facility] three times daily. docusate sodium 100 mg oral capsule (20 sources) Start: 04-15-2024 End: 04-20-2024 Start: 12-17-2021 End: 05-22-2024 take 1 capsule by mouth twice daily docusate sodium (COLACE) 100 mg capsule Take 1 capsule by mouth twice daily. 12/17/2021 Active End: 04-29-2025 take 1 tablet by mouth twice daily docusate sodium (Colace) 100 MG tablet Take 100 mg by mouth 2 times daily. 04/29/2025 Discontinued (Stop taking at discharge) Comment on above: Take [address] [facility] twice daily. docusate sodium 50 mg / sennosides, care home 8.6 mg oral tablet (20 sources) Start: 02-22-2025 End: 04-29-2025 take 2 tablets by mouth twice daily 2 tablet, Oral, 2 times daily, First dose on 04/22/25 at 0245 Start: 01-24-2022 take 1 tablet by [facility] twice daily senna-docusate (SENNA-S) 8.6-50 mg per tablet Take 1 tablet by mouth twice daily. 01/24/2022 Active Comment on above: Take 1 tablet by [facility] twice daily. DULoxetine 30 mg delayed release oral capsule (20 sources) Serotonin and Norepinephrine Reuptake Inhibitor Start: 11-06-2024 End: 04-29-2025 take 30 mg by mouth once daily 30 mg, Oral, Daily, First dose on 04/22/25 at 0800, Do not crush or chew. Start: 03-31-2024 duloxetine (CY MBALTA) 60 MG capsule 03/31/2024 Active Start: 06-18-2017 take 1 capsule by mo [facility] once daily DULoxetine (CYMBALTA) 60 MG extended release capsule take 1 capsule by mouth once daily 0 06/18/2017 Active 0.4 ml enoxaparin sodium 100 mg/ml prefilled syringe (11 sources) Low Molecular Weight Heparin Start: 05-18-2024 End: 05-22-2024 inject 40 mg by subcutaneous injection every twenty-four hours 40 mg, SubCUTAneous, Every 24 hours scheduled (Daily), First dose on Thu05/18/24 at 0900, Indication of Use: Prophylaxis-DVT/PE, Indications: Prophylaxis of Venous Thromboembolism Start: 01-24-2022 End: 05-06-2024 inject 40 mg by subcutaneous injection every twenty-four hours 40 mg, SubCUTAneous, Every 24 hours scheduled (Daily), First dose on Fabiola 05/05/24 at 1700, Indication of Use: Prophylaxis-DVT/PE, Indications: Prophylaxis of Venous Thromboembolism Comment on above: Inject 0.4 mL subcut aneously q 24 HR. ertapenem (2 sources) Penem Antibacterial Start: End: take 1 g intravenously every twenty-four hours ERTAPENEM SODIUM IV Infuse 1 g into a venous catheter Every 24 hours. 04/19/2024 05/06/2024 Discontinued (Stop taking at discharge) ertapenem (INVanz) 1 g in sodium chloride 0.9 % 50 mL IVPB Mini-Bag Plus (2 sources) Start: End: famotidine 20 mg oral tablet (3 sources) Histamine-2 Receptor Antagonist take 1 tablet by mouth twice daily famotidine (PEPCID) 20 mg tablet Take 20 mg by mouth twice daily. 0 Active Comment on above: Take 20 mg by mouth twice daily. 2 ml fentaNYL 0.05 mg/ml injection (1 source) Opioid Agonist Start: End: fentaNYL (SUBLIMAZE) injection 50 mcg ferrous sulfate 325 mg oral tablet (20 sources) Start: End: take 325 mg by mouth once daily at breakfast 325 mg, Oral, Daily with breakfast, First dose on 04/22/25 at 0800, On hold since Thu04/26/2025 at 0925 until manually unheld Start: 04-15-2024 End: 04-20-2024 200 ml fluconazole 2 mg/ml injection (2 sources) Azole Antifungal Start: 04-14-2024 End: 04-19-2024 Gadoterate Meglumine (DOTAREM) 10 MMOL/20ML solution (1 source) Start: 04-05-2024 End: 04-05-2024 take 1 dose intravenously once 20 mL, Intravenous Push, Once at Radiology exam, 1 dose, Starting on Thu04/05/24 at 1656, Until Thu04/05/24 at 1655, Imaging Protocol Orders glucagon (rdna) 1 mg injection (9 sources) Antihypoglycemic Agent Start: 04-22-2025 End: 04-29-2025 Start: 05-18-2024 End: 05-22-2024 Start: 05-05-2024 End: 05-06-2024 1 mg, IntraMUSCular, PRN, lo w blood sugar, Blood glucose less than 70 mg/dL and patient NOT ALERT or NPO and does not have IV access., Starting on Thu05/05/24 at 1821, After administration, attempt intravenous access and start D5W at 100 mL/hr. Repeat blood glucose in 15 minutes x2 and notify provider. Start: 04-14-2024 End: 04-20-2024 Start: 10-24-2020 glucagon (rDNA ) injection 1 mg 50 ml glucose 50 mg/ml injec tion (19 sources) Start: 04-22-2025 End: 04-29-2025 Start: 04-22-2025 End: 04-29-2025 Start: 05-18-2024 End: 05-22-2024 Start: 05-18-2024 End: 05-22-2024 Start: 05-05-2024 End: 05-06-2024 12.5 g, IntraVENous, PRN, lo w blood sugar, Blood glucose less than 70 mg/dL and patient NOT ALERT or NPO., Starting on Thu05/05/24 at 1821, If patient does not respond within 5 minutes, repeat dose x1. Start D5W at 100 mL/hour until ordering provider can be reached. Repeat blood glucose in 15 minutes. If blood glucose is less than 70 mg/dL, repeat treatment and recheck blood glucose in 15 minutes x2. If using Glucostabilizer, dose as instructed per system. Start: 05-05-2024 End: 05-06-2024 100 mL/hr, IntraVENous, PRN, Blood sugar less than 70mg/dL, Starting on Fabiola 05/05/24 at 1821, Start infusion following administration of dextrose 50% or glucagon. Start: 04-14-2024 End: 04-20-2024 Start: 04-14-2024 End: 04-20-2024 Start: 10-24-2020 glucose (GLUTO SE) 40 % oral gel 15 g Start: 10-24-2020 dextrose 50 % IV solution Start: 10-24-2020 dextrose 5 % s olution 1 ml HYDROmorphone hydrochloride 1 mg/ml cartridge (20 sources) Opioid Agonist Start: 04-22-2025 End: 04-22-2025 take 0.5 mg by mouth once 0.5 mg, IntraVENous, Once, On 04/22/25 at 0105, For 1 dose, If oral and injectable narcotics ordered, use oral first and only use injectable if oral is ineffective or cannot take oral. Do Not give oral and injectable within 1 hour of each other unless specifically ordered. Start: 05-18-2024 End: 05-18-2024 take 0.5 mg by mouth once 0.5 mg, IntraVENous, Once, O n 05/18/24 at 0050, For 1 dose, If oral and IV narcotics ordered, use oral first and only use IV if oral is ineffective or cannot take oral. Do Not give oral and IV within 1 hour of each other unless specifically ordered. Start: 05-05-2024 End: 05-06-2024 take 1 tablet by mouth every four hours as needed for pain 1 mg, Oral, Every 4 hours PRN, severe pain (7-10), Starting on Fabiola 05/05/24 at 1655 Start: 05-02-2024 End: 05-27-2024 HYDROmorphone (DILAUDID) 4 M G tablet 05/02/2024 Active Start: 04-14-2024 End: 04-20-2024 take 1 mg intravenously every four hours as needed for pain Insulin Lispro (Humalog) injection 0-12 Units (2 sources) Start: 05-18-2024 End: 05-22-2024 Insulin Lispro (Humalog) injection 0-12 Units Insulin Lispro (Humalog) injection 0-18 Units (2 sources) Start: 05-06-2024 End: 05-06-2024 Insulin Lispro (Humalog) injection 0-18 Units iopamidol (Isovue-370) 76 % injection 75 mL (2 sources) Start: 04-22-2025 End: 04-22-2025 take 75 mL intravenously once as needed 75 mL, IntraVENous, IMG once PRN, contrast, Starting on Thu04/22/25 at 0007, For 1 dose iron sucrose (Venofer) 200 mg in sodium chloride 0.9 % 100 mL IVPB (2 sources) Start: 04-26-2025 End: 04-28-2025 200 mg, IntraVENous, at 100 mL/hr, Administer over 60 Minutes, Every 24 hours, First dose on Thu04/26/25 at 0945, For 2 days, Observe for signs and symptoms of hypersensitivity and/or anaphylactic-type reactions per institutional standard during and following administration. 1 ml ketorolac tromethamine 30 mg/ml cartridge (1 source) Nonsteroidal Anti-inflammatory Drug, Cyclooxygenase Inhibitor Start: 10-24-2020 End: 10-24-2020 ketorolac (TORADOL) injection 30 mg 10 ml lidocaine hydrochloride 10 mg/ml injection (4 sources) Antiarrhythmic, Amide Local Anesthetic Start: 04-20-2024 End: 04-20-2024 Start: 10-25-2020 lidocaine 4 % external patch 1 patch Start: 10-24-2020 End: 10-24-2020 lidocaine PF 1 % injection 1 mL linagliptin 5 mg oral tablet (19 sources) Dipeptidyl Peptidase 4 Inhibitor Start: 11-14-2024 End: 04-22-2025 take 5 mg by mouth once daily 5 mg, Oral, Daily, First dose on Thu04/22/25 at 0900 Start: 08-18-2020 End: 04-20-2024 100 ml magnesium sulfate 10 mg/ml injection (2 sources) Start: 04-18-2024 End: 04-18-2024 meropenem (Merrem) 2,000 mg in sodium chloride 0.9 % 100 mL IVPB (2 sources) Start: 04-22-2025 End: 04-26-2025 take 2000 mg intravenously every eight hours 2,000 mg, IntraVENous, at 33.3 mL/hr, Administer over 180 Minutes, Every 8 hours, First dose on Thu04/22/25 at 1400, For 22 doses, Mini-Bag Plus bag, Suspected Indication (Select all that apply): Bone and Joint Infection midodrine hydrochloride 5 mg oral tablet (16 sources) alpha-Adrenerg ic Agonist Start: 04-22-2025 End: 04-29-2025 take 10 mg by mouth three times daily 10 mg, Oral, 3 times daily, First dose on 04/22/25 at 0900 Start: 02-22-2025 take 1 tablet by jeison th three times daily midodrine (Proamatine) 10 MG tablet Take 10 mg by mouth 3 times a day. 02/22/2025 Active Start: 02-22-2025 take 1 tablet by jeison th every eight hours midodrine (PROAMATINE) 10 mg tablet Take 1 tablet by mouth every 8 hours. 90 tablet 02/22/2025 Active mirtazapine 15 mg oral tablet (20 sources) Start: 04-22-2025 End: 04-29-2025 take 7.5 mg by mouth once daily 7.5 mg, Oral, Nightly, First dose on Thu04/22/25 at 2100 Start: 05-18-2024 End: 05-22-2024 take 7.5 mg by mouth once daily 7.5 mg, Oral, Nightly, First dose on Thu05/18/24 at 2100 Start: 05-05-2024 End: 05-06-2024 take 7.5 mg by mouth once daily 7.5 mg, Oral, Nightly, First dose on Thu05/05/24 at 2100 Start: 04-14-2024 End: 04-20-2024 Start: 04-28-2023 take 1 tablet by jeison th once daily at bedtime mirtazapine (REMERON) 15 mg tablet Take 1 tablet by mouth daily at bedtime. 04/28/2023 Active Start: 01-24-2022 take 1 tablet by jeison th once daily mirtazapine (Remeron) 7.5 MG tablet Take 7.5 mg by mouth Nightly. 12/20/2023 Active Comment on above: Take 1 tablet by jeison th daily at bedtime. 1 ml morphine sulfate 4 mg/ml cartridge (2 sources) Opioid Agonist Start: 05-17-20 End: 05-17-20 take 1 dose by mouth every hour 4 mg, IntraVENous, Once, On Thu05/17/24 at 2150, For 1 dose, If oral and IV narcotics ordered, use oral first and only use IV if oral is ineffective or cannot take oral. Do Not give oral and IV within 1 hour of each other unless specifically ordered. 2 ml ondansetron 2 mg/ml injection (2 sources) Serotonin-3 Receptor Antagonist Start: 05-17-20 End: 05-17-20 4 mg, IntraVENous, Once, On Thu05/17/24 at 2150, For 1 dose ondansetron ODT (Zofran-ODT) disintegrating tablet 4 mg (6 sources) Start: 04-22-20 End: 04-29-20 take 1 tablet by mouth every eight hours as needed for nausea and vomiting ondansetron ODT (Zofran-ODT) disintegrating tablet 4 mg Start: 05-18-2024 End: 05-22-2024 take 1 tablet by mouth every eight hours as needed for nausea and vomiting ondansetron ODT (Zofran-ODT) disintegrating tablet 4 mg Start: 05-05-2024 End: 05-06-2024 take 1 tablet by mouth every eight hours as needed for nausea and vomiting ondansetron ODT (Zofran-ODT) disintegrating tablet 4 mg oxyCODONE hydrochloride 15 mg oral tablet (20 sources) Opioid Agonist Start: 04-22-2025 End: 04-29-2025 take 15 mg by mouth four times daily 15 mg, Oral, 4 times daily, First dose on Thu04/22/25 at 0900 Start: 05-18-2024 End: 05-19-2024 take 1 dose by mouth twice daily 15 mg, Oral, Every 12 hours scheduled (2 times per day), First dose on Thu05/18/24 at 0900, Do not crush, chew, or split. Start: 04-14-2024 End: 04-20-2024 Start: 12-28-2023 End: 04-28-2025 take 1 tablet by mouth four times daily oxyCODONE (Roxicodone) 15 MG immediate release tablet Indications: Lumbar stenosis with neurogenic claudication , Osteoarthritis, unspecified osteoarthritis type, unspecified site , Other intervertebral disc displacement, lumbar region Take 1 tablet (15 mg) by mouth 4 times daily. 12 tablet 04/28/2025 04/28/2025 Discontinued Start: 01-24-2022 take 1 tablet by jeison th every eight hours oxyCODONE ER (OXYCONTIN) 40 mg 12 hr tablet Take 1 tablet by mouth every 8 hours for 10 days. 0 01/24/2022 Active Start: 10-24-2020 take 5 mg by mouth e very four hours as needed for pain 5 mg, Oral, EVERY 4 HOURS PRN, Pain Moderate (4-6), Starting Thu10/24/20 at 1518, Post-op take 15 mg by mouth three times daily oxycodone HCl (OXYCODONE ORAL) Take 15 mg by mouth three times daily. Active End: 05-19-2024 oxyCODONE ER (OxyCONTIN) 15 MG 12 hr tablet Do not crush, chew, or split. 05/19/2024 Discontinued Comment on above: Take 1 tablet by jeison th every 8 hours for 10 days. Petrolatum (2 sources) Start: 04-28-20 End: 04-29-20 Topical, 2 times daily PRN, dry skin, Starting on Thu04/28/25 at 1105, Apply to bilat feet. phenazopyridine hydrochloride 100 mg oral tablet (2 sources) Start: 05-05-20 End: 05-06-20 take 1 tablet by mouth every six hours as needed for muscle spasms 100 mg, Oral, Every 6 hours PRN, bladder spasms, Pain, Starting on Thu05/05/24 at 1658 piperacillin 3000 mg / tazobactam 375 mg injection (4 sources) Penicillin-class Antibacterial, beta Lactamase Inhibitor Start: 05-18-20 End: 05-18-20 take 3375 mg intravenously every eight hours 3,375 mg, IntraVENous, at 12.5 mL/hr, Administer over 4 Hours, Every 8 hours, First dose on Thu05/18/24 at 0400, premix bag, Suspected Indication (Select all that apply): Urinary Tract Infection Start: 05-17-2024 End: 05-17-2024 3,375 mg, IntraVENous, at 10 0 mL/hr, Administer over 0.5 Hours, Once, On Thu05/17/24 at 2100, For 1 dose, premix bag, Suspected Indication (Select all that apply): Other, Other Abx Indication: Blood cultures collected yesterday positive for gram positive cocci polyethylene glycol 3350 38377 mg powder for oral solution (20 sources) Osmotic Laxative Start: 04-22-2025 End: 04-29-2025 17 g, Oral, 2 times daily, First dose on 04/22/25 at 0245 Start: 04-28-2023 polyethylene g lycol 3350 17 gram packet Take 1 Packet by mouth twice daily. Dissolve dose in 4 - 8 ounces of liquid and take as directed. 04/28/2023 Active Start: 01-24-2022 End: 04-29-2025 take 17 g by mouth every twenty-four hours as needed for constipation Comment on above: Take 1 Packet by jeison th once daily as needed. Dissolve dose in 4 - 8 ounces of liquid and take as directed. microencapsulated potassium chloride 10 meq extended release oral tablet (20 sources) Start: 05-19-2024 End: 05-19-2024 40 mEq, Oral, Once, On Fabiola 05/19/24 at 1500, For 1 dose, Best given with food and plenty of water to minimize gastric irritation. Do not crush or chew. Start: 04-18-2024 End: 04-18-2024 Start: 04-17-2024 End: 04-17-2024 Start: 04-17-2024 End: 04-17-2024 Start: 04-11-2024 Potassium Chlo ride 10 % SOLN 04/11/2024 Active Start: 04-12-2023 End: 04-29-2025 potassium chloride CR (Klor- Con M20) 20 MEQ ER tablet 40 mEq daily. 04/12/2023 04/29/2025 Discontinued (Stop taking at discharge) Start: 01-24-2022 take 1 tablet by jeison th once daily potassium chloride ER (K-DUR, KLOR-CON) 20 mEq tablet Take 1 tablet by mouth once daily. 01/24/2022 Active Comment on above: Take 1 tablet by jeison th once daily. pregabalin 200 mg oral capsu le (20 sources) Start: 04-14-2024 End: 04-20-2024 Start: 01-29-2024 End: 07-25-2026 take 200 mg by mouth three times daily 200 mg, Oral, 3 times daily, First dose on Thu04/22/25 at 0900 Start: 12-29-2023 End: 01-29-2024 take 1 capsule by mouth twice daily pregabalin (Lyrica) 150 MG capsule Indications: Spinal cord injury, lumbar, without spinal bone injury, sequela (HCC) Take 1 capsule (150 mg) by mouth 2 times daily. 60 capsule 1 12/29/2023 01/29/2024 Discontinued End: 05-19-2024 take 1 capsule by mouth three times daily pregabalin (Lyrica) 100 MG capsule Indications: Neuropathic Pain Take 100 mg by mouth 3 times daily. 05/19/2024 Discontinued SITagliptin 100 mg oral tablet (3 sources) Dipeptidyl Peptidase 4 Inhibitor Start: 12-18-2021 take 1 tablet by mouth once daily SITagliptin (JANUVIA) 100 mg tablet Take 1 tablet by mouth once daily. 0 12/18/2021 Active Comment on above: Take 1 tablet by [facility] once daily. 10 ml sodium bicarbonate 84 mg/ml injection (2 sources) Start: 04-14-2024 End: 04-14-2024 5 ml sodium chloride 9 mg/ml injection (20 sources) Start: 04-24-2025 End: 04-24-2025 10 mL, IntraVENous, Every 12 hours scheduled (2 times per day), First dose on Thu04/24/25 at 0900, Recovery (only) Start: 04-22-2025 End: 04-29-2025 take 10 mL intraluminal route every twelve hours 10 mL, IntraCATHeter, Every 12 hours, First dose on Thu04/22/25 at 0630, Administer to each lumen. Line Care. Use 10 mL or larger syringe. Start: 04-22-2025 End: 04-29-2025 10 mL, IntraCATHeter, PRN, l ine care, before blood draws, before and after infusion or medication administration, Starting on Thu04/22/25 at 0624, Use 10 mL or larger syringe. Start: 04-21-2025 End: 04-22-2025 1,000 mL, IntraVENous, at 1, 000 mL/hr, Administer over 1 Hours, Once, On Thu04/21/25 at 2230, For 1 dose Start: 05-18-2024 End: 05-19-2024 take 100 mL intravenously every hour 100 mL/hr, IntraVENous, Continuous, Starting on Thu05/18/24 at 0340, For 1 day Start: 05-17-2024 End: 05-17-2024 1,000 mL, IntraVENous, at 1, 000 mL/hr, Administer over 1 Hours, Once, On Thu05/17/24 at 2100, For 1 dose Start: 04-14-2024 End: 04-20-2024 Start: 04-14-2024 End: 04-20-2024 Start: 04-14-2024 End: 04-14-2024 Start: 10-24-2020 10 mL, Intrave nous, EVERY 12 HOURS SCHEDULED (2 times per day), First dose on Thu10/24/20 at 2100, Post-op Start: 10-24-2020 take 1 mL intravenou s route every hour Intravenous, at 100 mL/hr, CONTINUOUS, Starting Thu10/24/20 at 2000 D/C IV and all IV medications when eating well postoperative. Post-op Start: 10-24-2020 take 10 mL intravenous route o nce 10 mL, Intravenous, PRN, Line Care, Starting Thu10/24/20 at 1942 After every IV line use Post-op End: 04-29-2025 sodium chloride 0.9 % irriga tion solution Irrigate with as directed. 10 ml every 12 hours before and after medication administration 04/29/2025 Discontinued (Stop taking at discharge) stomahesive in petrolatum (ET Mix) (2 sources) Start: 05-06-2024 End: 05-06-2024 Topical, PRN, dry skin, Starting on Thu05/06/24 at 0846, Buttucks therapeutic multivitamin-minerals (Theragran-M) tablet (2 sources) Start: 05-18-2024 End: 05-22-2024 take 1 tablet by mouth once daily 1 tablet, Oral, Daily, First dose on Thu05/18/24 at 0900 (16 sources) Start: 04-20-2024 End: 04-20-2024 Start: 04-16-2024 End: 04-20-2024 take 2000 mg intravenously every eight hours Start: 04-16-2024 End: 04-20-2024 inject 12 [IU] by subcutaneous injection once daily [Order 1 Start] Name: Insulin Lispro (Humalog) injection 0-12 Units Signed Summary: 0-12 Units, SubCUTAneous, 3 times daily with meals, First dose on 04/16/24 at 0830, Medium Dose Correction Algorithm Glucose: Dose: LESS than 139 No Insulin 140-199 2 Unit 200-249 4 Units 250-299 6 Units 300-349 8 Units 350-400 10 Units Above 400 12 Units [Order 1 End] [Order 2 Start] Name: Insulin Lispro (Humalog) injection 0-12 Units Signed Summary: 0-12 Units, SubCUTAneous, Nightly, First dose on 04/16/24 at 2100, If continuous tube feedings/TPN/NPO, give correction dose based on result, no reduction in dose. If eating or bolus tube feeding: Medium Dose Correction Algorithm Glucose: Dose: LESS than 139 No Insulin 140-199 2 Unit 200-249 4 Units 250-299 6 Units 300-349 8 Units 350-400 10 Units Above 400 12 Units [Order 2 End] Start: 04-15-2024 End: 04-15-2024 take 1000 mg intravenously every twelve hours Start: 04-14-2024 End: 04-20-2024 take 4 mg by mouth every eight hours as needed for nausea and vomiting [Order 1 Start] Name: ondansetron ODT (Zofran-ODT) disintegrating tablet 4 mg Signed Summary: 4 mg, Oral, Every 8 hours PRN, nausea, vomiting, Starting on Fabiola 04/14/24 at 2240, 1st Line. If inadequate response within 60 minutes, proceed to next-line agent or contact provider if no further options ordered. Patient should allow tablet to dissolve on tongue. Do not remove from blister pack until just before administering. [Order 1 End] [Order 2 Start] Name: ondansetron (Zofran) injection 4 mg Signed Summary: 4 mg, IntraVENous, Every 6 hours PRN, nausea, vomiting, Starting on Fabiola 04/14/24 at 2240, 1st Line. Give IV if patient is unable to take orally. If inadequate response within 60 minutes, proceed to next-line agent or contact provider if no further options ordered. [Order 2 End] Start: 04-14-2024 End: 04-20-2024 take 650 mg by mouth every six hours as needed for pain and fever [Order 1 Start] Name: acetaminophen (Tylenol) tablet 650 mg Signed Summary: 650 mg, Oral, Every 6 hours PRN, mild pain (1-3), fever, For temp greater than 100.4 F (38 C), Starting on Fabiola 04/14/24 at 2240, Maximum dose of acetaminophen is 4000 mg from all sources in 24 hours. [Order 1 End] [Order 2 Start] Name: acetaminophen (Tylenol) suppository 650 mg Signed Summary: 650 mg, Rectal, Every 6 hours PRN, mild pain (1-3), fever, For temp greater than 100.4 F (38 C), Starting on Fabiola 04/14/24 at 2240, Administer if oral route cannot be used. Maximum dose of acetaminophen is 4000 mg from all sources in 24 hours. [Order 2 End] Start: 04-14-2024 End: 04-14-2024 Start: 04-14-2024 End: 04-14-2024 (4 sources) Start: 04-15-2024 End: 04-17-2024 take 1250 mg intravenously every twelve hours Start: 04-14-2024 End: 04-14-2024 (2 sources) Start: 04-15-2024 End: 04-16-2024 Problems Active Problems Problem Classification Problem Date Documented Da te Episodic/Chronic Acute and unspecified renal failure (1 source) Acute kidney failure, unspecified; Translations: [MK (acute kidney injury)] Onset: 5 Episodic Anxiety disorders (20 sources) Anxiety; Translations: [Anxiety disorder, unspecified] Onset: 7 01-06-2017 Chronic Chronic ulcer of skin (20 sources) Pressure ulcer of sacral region, stage 2; Translations: [Pressure ulcer, lower back] Onset: 3 04-15-2024 Chronic Complication of device; implant or graft (1 source) Infection and inflammatory reaction due to indwelling urethral catheter, initial encounter; Translations: [Urinary tract infection associated with indwelling urethral catheter, initial encounter] Onset: 5 Episodic Deficiency and other anemia (1 source) Hereditary sideroblastic anemia; Translations: [Hereditary sideroblastic anemia] Onset: 5 Chronic Deficiency and other anemia (2 sources) Anemia, unspecified; Translations: [Anemia, unspecified] Onset: 4 Episodic Diabetes mellitus with complications (11 sources) Type 2 diabetes mellitus; Translations: [Type 2 diabetes mellitus with hyperglycemia] Onset: 1 01-04-2022 Chronic Diabetes mellitus with complications (1 source) Diabetes mellitus with complications Onset: 7 Diabetes mellitus without complication (20 sources) Diabetes mellitus without complication; Translations: [Type 2 diabetes mellitus without complications] Onset: 7 10-15-2020 Chronic Diseases of white blood cells (3 sources) Leukocytosis; Translations: [Elevated white blood cell count, unspecified] Onset: 5 02-17-2025 Chronic Essential hypertension (20 sources) Hypertensive disorder; Translations: [Essential (primary) hypertension] Onset: 7 01-06-2017 Chronic Fever of unknown origin (3 sources) Fever; Translations: [Fever, unspecified] Onset: 5 02-17-2025 Episodic Genitourinary symptoms and ill-defined conditions (4 sources) Presence of urogenital implants; Translations: [Other postprocedural status] Onset: 5 03-07-2025 Chronic Hyperplasia of prostate (1 source) Benign prostatic hyperplasia without lower urinary tract symptoms; Translations: [Benign prostatic hyperplasia without lower urinary tract symptoms] Onset: 5 Chronic Infective arthritis and osteomyelitis (except that caused by tuberculosis or sexually transmitted disease) (20 sources) Osteomyelitis of vertebra; Translations: [Osteomyelitis of vertebra, site unspecified] Onset: 2 01-04-2022 Chronic Noninfectious gastroenteritis (3 sources) Proctocolitis; Translations: [Noninfective gastroenteritis and colitis, unspecified] Onset: 5 02-17-2025 Episodic Nutritional deficiencies (11 sources) Deficiency of macronutrients; Translations: [Unspecified severe protein-calorie malnutrition] Onset: 1 01-04-2022 Chronic Osteoarthritis (20 sources) Osteoarthritis; Translations: [Unspecified osteoarthritis, unspecified site] Onset: 7 10-15-2020 Chronic Osteoporosis (2 sources) Osteoporosis; Translations: [Age-related osteoporosis without current pathological fracture] Onset: 4 08-22-2024 Chronic Other aftercare (3 sources) Long-term current use of antibiotic; Translations: [technician terminal and repeater (current) use of antibiotics] Onset: 5 02-17-2025 Episodic Other connective tissue disease (1 source) Spasm; Translations: [Muscle spasm] Episodic Other connective tissue disease (10 sources) Neuropathic pain; Translations: [Neuralgia and neuritis, unspecified] 01-29-2024 Episodic Other connective tissue disease (3 sources) History of lumbar fusion; Translations: [Arthrodesis status] 02-10-2024 Episodic Other connective tissue disease (1 source) Neuralgia and neuritis, unspecified; Translations: [Neuralgia and neuritis, unspecified] Onset: 5 Episodic Other diseases of bladder and urethra (5 sources) Reflex neuropathic bladder; Translations: [Reflex neuropathic bladder, not elsewhere classified] 06-13-2024 Chronic Other diseases of bladder and urethra (11 sources) Neurogenic bladder; Translations: [Neuromuscular dysfunction of bladder, unspecified] Onset: 3 09-30-2024 Chronic Other diseases of bladder and urethra (2 sources) Neuromuscular dysfunction of bladder, unspecified; Translations: [Neuromuscular dysfunction of bladder, unspecified] Onset: 3 Chronic Other diseases of bladder and urethra (1 source) Reflex neuropathic bladder, not elsewhere classified; Translations: [Reflex neuropathic bladder, not elsewhere classified] Onset: 4 Chronic Other diseases of kidney and ureters (1 source) Other hydronephrosis; Translations: [Other hydronephrosis] Onset: 5 Episodic Other diseases of kidney and ureters (2 sources) Unspecified hydronephrosis; Translations: [Unspecified hydronephrosis] Onset: 5 Episodic Other gastrointestinal disorders (5 sources) Neurogenic bowel; Translations: [Neurogenic bowel, not elsewhere classified] 06-13-2024 Chronic Other gastrointestinal disorders (1 source) Neurogenic bowel, not elsewhere classified; Translations: [Neurogenic bowel, not elsewhere classified] Onset: 4 Chronic Other nutritional; endocrine; and metabolic disorders (1 source) Unexplained weight loss ; Translations: [Loss of weight] Episodic Other upper respiratory infections (1 source) Acute sinusitis; Translations: [Acute sinusitis, unspecified] Episodic Paralysis (18 sources) Paraplegia; Translations: [Paraplegia, unspecified] Onset: 4 02-10-2024 Chronic Residual codes; unclassified (3 sources) Altered mental status; Translations: [Altered mental status, unspecified] Onset: 5 02-17-2025 Episodic Residual codes; unclassified (1 source) Altered mental status, unspecified; Translations: [Altered mental status, unspecified altered mental status type] Onset: 5 Episodic Shock (1 source) Severe sepsis with septic shock; Translations: [Septic shock (HCC)] Onset: 5 Episodic Spinal cord injury (4 sources) Injury of lumbar spinal cord; Translations: [Unspecified injury to unspecified level of lumbar spinal cord, sequela] 01-29-2024 Episodic Spondylosis; intervertebral disc disorders; other back problems (20 sources) Other intervertebral disc displacement, lumbar region; Translations: [Other intervertebral disc displacement, lumbosacral region] Onset: 7 07-07-2017 Chronic Substance-related disorders (20 sources) Nicotine dependence; Translations: [Nicotine dependence, unspecified, uncomplicated] Onset: 9 10-15-2020 Chronic Unclassified (1 source) Anxiety disorder, unspecified / F41.9(ICD-9) Onset: 7 Unclassified (1 source) Nicotine dependence, unspecified, uncomplicated / F17.200(ICD-9) Onset: 7 Unclassified (2 sources) Other intervertebral disc displacement, lumbar region / M51.26(ICD-9) Onset: 7 Unclassified (1 source) Abnormal electrocardiogram [ECG] [EKG] / R94.31(ICD-9) Onset: 7 Unclassified (1 source) Unspecified osteoarthritis, unspecified site / M19.90(ICD-9) Onset: 7 Unclassified (2 sources) Encounter for other preprocedural examination / Z01.818(ICD-9) Onset: 7 Unclassified (1 source) Other intervertebral disc displacement, lumbosacral region / M51.27(ICD-9) Onset: 7 Unclassified (1 source) Spinal stenosis, lumbar region without neurogenic pallavi / M48.061(ICD-9) Onset: 7 Unclassified (2 sources) Spinal stenosis, lumbar region without neurogenic claudication; Translations: [Spinal stenosis, lumbar region without neurogenic pallavi] Onset: 8 Urinary tract infections (20 sources) Urinary tract infectious disease; Translations: [Urinary tract infection, site not specified] Onset: 01-04-2022 Episodic Past or Other Problems Problem Classification Problem Date Documented Date Episodic/Chronic Administrative/socia l admission (5 sources) Patient encounter status; Translations: [Counseling, unspecified] Onset: 04-24-2023 04-28-2023 Episodic Anal and rectal conditions (5 sources) Perirectal abscess; Translations: [Rectal abscess] Onset: 01-16-2021 Resolved: 08-21-2021 08-21-2021 Episodic Bacterial infection; unspecified site (20 sources) Bacteremia due to Methicillin resistant Staphylococcus aureus; Translations: [Bacteremia] Onset: 11-27-2021 01-04-2022 Episodic Calculus of urinary tract (20 sources) Ureteric stone; Translations: [Calculus of ureter] Onset: 11-25-2021 12-17-2021 Episodic Diabetes mellitus without complication (20 sources) Hyperglycemia; Translations: [High hemoglobin A1c level] Onset: 01-06-2017 01-06-2017 Episodic Genitourinary symptoms and ill-defined conditions (20 sources) Urinary tract obstruction; Translations: [Obstructive and reflux uropathy, unspecified] Onset: 05-03-2023 04-14-2024 Episodic Other acquired deformities (1 source) Spondylolisthesis, lumbar region; Translations: [SPONDYLOLISTHESIS LUMBAR] Onset: 05-27-2017 Episodic Other aftercare (1 source) technician terminal and repeater (current) use of insulin; Translations: [Type 2 diabetes mellitus with hyperglycemia, with long-term current use of insulin (HCC)] Onset: 01-04-2022 Episodic Other aftercare (1 source) Other chcf (current) drug therapy; Translations: [Other chcf (current) drug therapy] Onset: 10-28-2024 Episodic Other LINUX ADMIN ENGINEER infection and poliomyelitis (8 sources) Epidural abscess; Translations: [Extradural and subdural abscess, unspecified] Onset: 01-04-2022 01-04-2022 Episodic Other connective tissue disease (3 sources) Arthrodesis status; Translations: [Arthrodesis status] Onset: 06-14-2018 Episodic Other diseases of kidney and ureters (7 sources) Hydronephrosis; Translations: [Other hydronephrosis] Onset: 04-24-2023 04-28-2023 Episodic Other non-traumatic joint disorders (8 sources) Chronic ankle pain; Translations: [Pain in right ankle and joints of right foot] Onset: 11-26-2021 11-26-2021 Episodic Other nutritional; endocrine; and metabolic disorders (8 sources) Abnormal weight loss; Translations: [Abnormal weight loss] Onset: 08-21-2021 08-21-2021 Episodic Other nutritional; endocrine; and metabolic disorders (3 sources) Weight loss; Translations: [Abnormal weight loss] Onset: 09-03-2021 11-26-2021 Episodic Other nutritional; endocrine; and metabolic disorders (5 sources) Weight decreased; Translations: [Abnormal weight loss] Onset: 09-03-2021 11-26-2021 Episodic Other screening for suspected conditions (not mental disorders or infectious disease) (20 sources) Electrocardiogram abnormal; Translations: [Cancer antigen 19-9 above reference range] Onset: 08-05-2017 10-15-2020 Episodic Pathological fracture (5 sources) Stress fracture of sacrum; Translations: [Pathological fracture, other site, initial encounter for fracture] Onset: 05-11-2024 04-06-2024 Episodic Residual codes; unclassified (6 sources) Urinary catheter in situ; Translations: [Presence of other specified devices] Onset: 04-24-2023 04-28-2023 Episodic Residual codes; unclassified (1 source) Presence of other specified devices; Translations: [Chronic indwelling Santana catheter] Onset: 04-28-2023 Episodic Septicemia (except in labor) (20 sources) Septic shock; Translations: [Sepsis, unspecified organism] Onset: 04-14-2024 04-14-2024 Episodic Skin and subcutaneous tissue infections (20 sources) Pilonidal cyst; Translations: [Pilonidal cyst without abscess] Onset: 06-13-2019 Resolved: 05-29-2020 10-15-2020 Episodic Spondylosis; intervertebral disc disorders; other back problems (20 sources) Radiculopathy, lumbar region; Translations: [Spinal stenosis, lumbar region] Onset: 05-27-2017 10-24-2020 Episodic Sprains and strains (20 sources) Sprain of hip; Translations: [Unspecified sprain of unspecified hip, initial encounter] Onset: 01-06-2017 01-06-2017 Episodic Unclassified (1 source) Encounter for other preprocedural examination; Translations: [Encounter for other preprocedural examination] Onset: 08-03-2017 Unclassified (5 sources) NO SHOW Onset: 08-31-2013 Resolved: 05-29-2020 05-29-2020 Results Test Name Value Interpretation Reference Range Facility 30on 04-28-2025 30 Proteus is sensitive to unasyn. OPAT for unasyn and vancomycin completed and scanned into media with stop date of 06/06. Follow up with Dr. Alvarez. D/w TCC. Plans for discharge to SNF. Jo-Ann Ortiz MD [facility] [id number] 04-28-2025 [id number] Confirmed pickup mingo e of 5:30pm on 04/28/25 by transport company [employer] at phone number [phone]. Location of facility drop off is [facility]. Facility notified via [employer], [facility] notified on secure chat. [facility] [phone] Transport requested in Roundtrip in will call to [facility] per [facility]. [facility] Bacteria identified Aer cx N om (Unsp spec)on 04-28-2025 Gram Stain Result Many Polymorphonuclear leukocytes per low power field Abnormal [facility] Gram Stain Result Positive Abnormal [facility] H ealt Interpretation and review of laboratory results Abnormal [facility] Laboratory - Chemistry and C hemistry - challengeon 04-28-2025 Glucose [Mass/Vol] 212 mg/dL High 70 - 100 mg/dL [facility] Glucose [Mass/Vol] 183 mg/dL High 70 - 100 mg/dL [facility] Glucose [Mass/Vol] 152 mg/dL High 70 - 100 mg/dL [facility] Laboratory - Microbiology an d Antimicrobial susceptibilityon 04-28-2025 Bacteria identified Aer cx Nom (Unsp spec) Rare skin gosia present [facility] Bacteria identified Aer cx Nom (Unsp spec) Moderate Enterococcus raffinosus Abnormal [facility] Bacteria identified Aer cx Nom (Unsp spec) Rare Proteus mirabilis Abnormal [facility] No Panel Informationon 04-28 Interpretation and review of laboratory results Abnormal [facility] Performed by: [address] [address] CLIA ID: [id number] [facility] Interpretation and review of laboratory results Abnormal [facility] Performed by: [facility], [address] [place] [address] CLIA ID: [id number] [facility] Interpretation and review of laboratory results Abnormal [facility] Performed by: [address] [address] CLIA ID: [id number] [facility] Nursing Noteon 04-28-2025 Nursing Note Called report to [facility]. PICC line clean dry and intact. Aide got pt ready and gathered all belongings. Waiting on transport to arrive. Normal [facility] 30on 04-27-2025 [address] Alvarez- s/p L ischial wound debridement with osteomyelitis. Additional organisms are being reported on OR cx. E raffinosus, Proteus, MRSA, Clostridium ramosum, enteric gosia, and skin gosia. Await Proteus sensitivities prior to completion of OPAT. Will provide final recommendations tomorrow. D/w TCC. Jo-Ann Ortiz MD [facility] BASIC METABOLIC PANELon 04-05 Anion gap [Moles/Vol] 3 mmol/L Normal 3-13 [facility] Comment on above: Performed By: #### L AB15 ####Auto Fleet Maintenance Manager: BIANCA NICHOLS ([phone])[facility] ([facility])[address] [place] [address] Calcium [Mass/Vol] 8.6 mg/dL Low 8.8-10.0 [facility] Comment on above: Performed By: #### L AB15 ####Auto Fleet Maintenance Manager: BIANCA NICHOLS ([id number])[facility] ([facility])[address] [place] [address] Chloride [Moles/Vol] 104 mmol/L Normal 98-107 [facility] Comment on above: Performed By: #### L AB15 ####Auto Fleet Maintenance Manager: BIANCA NICHOLS ([phone])[facility] ([facility])[address] [place] [address] CO2 [Moles/Vol] 29 mmol/L Normal 23-31 [facility] Comment on above: Performed By: #### L AB15 ####Auto Fleet Maintenance Manager: BIANCA NICHOLS ([phone])[facility])[address] [place] [address] Creatinine [Mass/Vol] 0.64 mg/dL Low 0.72-1.25 [facility] Comment on above: Performed By: #### L AB15 ####Auto Fleet Maintenance Manager: BIANCA NICHOLS ([phone])[facility] ([facility])[address] [place] [address] GLOMERULAR FILTRATION RATE ML/MIN/1.73 SQ M.PREDICTED >90.0 Normal >60.0 [facility] Comment on above: Result Comment: Calc ulation based on the Chronic Kidney Disease Epidemiology Collaboration (CKD-EPI) equation refit without adjustment for race Performed By: #### L AB15 ####Auto Fleet Maintenance Manager: BIANCA NICHOLS ([id number])[facility] ([facility])[address] [place] [address] Glucose [Mass/Vol] 96 mg/dL Normal 82-115 [facility] Comment on above: Performed By: #### L AB15 ####Auto Fleet Maintenance Manager: BIANCA NICHOLS ([id number])[facility])[address] [place] [address] Potassium [Moles/Vol] 4.0 mmol/L Normal 3.5-5.1 [facility] Comment on above: Result Comment: [facility] potassium values may be up to 0.5 mmol/L lower than serum values. Performed By: #### L AB15 ####Auto Fleet Maintenance Manager: BIANCA NICHOLS ([id number])[facility] ([facility])[address] [place] [address] Sodium [Moles/Vol] 136 mmol/L Normal 136-145 [facility] Comment on above: Performed By: #### L AB15 ####Auto Fleet Maintenance Manager: BIANCA NICHOLS ([id number])[facility] ([facility])[address] [place] [address] Urea nitrogen [Mass/Vol] 21 mg/dL Normal 9-23 [facility] Comment on above: Performed By: #### L AB15 ####Auto Fleet Maintenance Manager: BIANCA NICHOLS ([id number])[facility] ([facility])[address] [place] [address] Bacteria identified Aer cx N om (Unsp spec)on 04-27-2025 Gram Stain Result Few Polymorphonuclea r leukocytes per low power field [facility] Gram Stain Result No organisms seen [facility] Interpretation and review of laboratory results Abnormal [facility] Bacteria identified Anaer cx Nom (Unsp spec)Ordered By: Vijaya Mariscal on 04-27-2025 Interpretation and review of laboratory results Abnormal [facility] Bacteria identified Cx Nom ( Bld)on 04-27-2025 Interpretation and review of laboratory results Normal [facility] Blood Collection Site: Right Forearm [facility] Blood Collection Site: Left PICC Purple Lumen [facility] Basic metabolic 1998 panelon 04-27-2025 Anion gap [Moles/Vol] 3 mmol/L 3 - 13 mmol/L [facility] Calcium [Mass/Vol] 8.6 mg/dL Low 8.8 - 10. 0 mg/dL [facility] Chloride [Moles/Vol] 104 mmol/L 98 - 10 7 mmol/L [facility] CO2 [Moles/Vol] 29 mmol/L 23 - 31 mmol/L [facility] Creatinine [Mass/Vol] 0.64 mg/dL Low 0.72 - 1.25 mg/dL [facility] GFR/1.73 sq M.predicted (S/P/Bld) [Vol rate/Area] - PINF [facility] Comment on above: Calculation based on the Chronic Kidney Disease Epidemiology Collaboration (CKD-EPI) equation refit without adjustment for race Glucose [Mass/Vol] 96 mg/dL 82 - 115 mg/dL [facility] Interpretation and review of laboratory results Abnormal [facility] Potassium [Moles/Vol] 4 mmol/L 3.5 - 5.1 mmol/L [facility] Comment on above: Plasma potassium leonie ues may be up to 0.5 mmol/L lower than serum values. Sodium [Moles/Vol] 136 mmol/L 136 - 145 mmol/L [facility] Urea nitrogen [Mass/Vol] 21 mg/dL 9 - 23 mg/dL [facility] CBC W Auto Differential pane l (Bld)on 04-27-2025 Basophils (Bld) [#/Vol] 0.1 10*3/uL 0.0 - 0.2 10*3/uL [facility] Basophils/100 WBC (Bld) 0.8 % 0.0 - 2.0 % [facility] Eosinophils (Bld) [#/Vol] 0.4 10*3/uL 0.0 - 0.5 10*3/uL [facility] Eosinophils/100 WBC (Bld) 5.3 % 0.0 - 6.0 % [facility] Erythrocyte distribution width (RBC) [Ratio] 14.9 % 11.5 - 15.0 % [facility] Hematocrit (Bld) [Volume fraction] 34 % Low 40.0 - 52.0 % [facility] Hemoglobin (Bld) [Mass/Vol] 10.9 g/dL Low 13.0 - 18.0 g/dL [facility] Immature granulocytes (Bld) [#/Vol] 0 10*3/uL NINF - 0.1 10*3/uL [facility] [place] Immature granulocytes/100 WBC (Bld) 0.5 % 0.0 - 2.0 % [facility] Interpretation and review of laboratory results Abnormal [facility] Lymphocytes (Bld) [#/Vol] 2.9 10*3/uL 1.0 - 4.3 10*3/uL [facility] Lymphocytes/100 WBC (Bld) 36.4 % 15.0 - 45.0 % [facility] MCH (RBC) [Entitic mass] 28.8 pg 26. 0 - 34.0 pg [facility] [place] MCHC (RBC) [Mass/Vol] 32.1 % 30.5 - 36.0 % [facility] MCV (RBC) [Entitic vol] 89.9 fL 77.0 - 99.0 fL [facility] Monocytes (Bld) [#/Vol] 0.7 10*3/uL 0.0 - 0.9 10*3/uL [facility] Health Monocytes/100 WBC (Bld) 8.2 % 5.0 - 13.0 % [facility] Neutrophils (Bld) [#/Vol] 3.9 10*3/uL 1.8 - 7.5 10*3/uL [facility] Neutrophils/100 WBC (Bld) 48.8 % 38.0 - 82.0 % [facility] Nucleated RBC/100 WBC (Bld) [Ratio] 0 % [facility] Platelet mean volume (Bld) [Entitic vol] 9.5 fL 9.0 - 12.7 fL [facility] Platelets (Bld) [#/Vol] 363 10*3/uL 140 - 440 10*3/uL [facility] RBC (Bld) [#/Vol] 3.78 10*6/uL Low 4.40 - 5.9 0 10*6/uL [facility] WBC (Bld) [#/Vol] 8 10*3/uL 3.6 - 10.7 10*3/uL [facility] CBC WITH AUTO DIFFERENTIALon 04-27-2025 Basophils (Bld) [#/Vol] 0.1 10*3/uL Normal 0.0-0.2 [facility] Comment on above: Performed By: #### L [id number] #### Auto Fleet Maintenance Manager: BIANCA NICHOLS ([phone]) [facility] [address] [place] [address] Basophils/100 WBC (Bld) 0.8 % Normal 0.0-2.0 [facility] Comment on above: Performed By: #### L [id number] #### Auto Fleet Maintenance Manager: BIANCA NICHOLS ([phone]) [facility] ([facility]) [address] [place] [address] Eosinophils (Bld) [#/Vol] 0.4 10*3/uL Normal 0.0-0.5 [facility] Comment on above: Performed By: #### L [id number] #### Auto Fleet Maintenance Manager: BIANCA NICHOLS ([phone]) [facility]) [address] [place] [address] Eosinophils/100 WBC (Bld) 5.3 % Normal 0.0-6.0 [facility] Comment on above: Performed By: #### L [id number] #### Auto Fleet Maintenance Manager: BIANCA NICHOLS ([phone]) [facility]) [address] [place] [address] Erythrocyte distribution width (RBC) [Ratio] 14.9 % Normal 11.5-15.0 [facility] Comment on above: Performed By: #### L [id number] #### Auto Fleet Maintenance Manager: BIANCA NICHOLS ([phone]) [address] Hematocrit (Bld) [Volume fraction] 34.0 % Low 40.0-52.0 [facility] Comment on above: Performed By: #### L [id number] #### Auto Fleet Maintenance Manager: BIANCA NICHOLS ([phone]) [facility]) [address] [place] [address] Hemoglobin (Bld) [Mass/Vol] 10.9 g/dL Low 13.0-18.0 [facility] Comment on above: Performed By: #### L [id number] #### Auto Fleet Maintenance Manager: BIANCA NICHOLS ([phone]) [facility]) [address] [place] [address] IMMATURE GRANS % 0.5 % Normal 0.0-2.0 [facility] Comment on above: Performed By: #### L [id number] #### Auto Fleet Maintenance Manager: BIANCA NICHOLS ([phone]) [facility]) [address] [place] [address] IMMATURE GRANS ABSOLUTE 0.0 10*3/uL Normal <0.1 [facility] Comment on above: Performed By: #### L [id number] #### Auto Fleet Maintenance Manager: BIANCA NICHOLS ([phone]) [facility]) [address] [place] [address] [place] Lymphocytes (Bld) [#/Vol] 2.9 10*3/uL Normal 1.0-4.3 [facility] Comment on above: Performed By: #### L [id number] #### Auto Fleet Maintenance Manager: BIANCA NICHOLS ([phone]) [facility]) [address] [place] [address] Lymphocytes/100 WBC (Bld) 36.4 % Normal 15.0-45.0 [facility] Comment on above: Performed By: #### L [id number] #### Auto Fleet Maintenance Manager: BIANCA NICHOLS ([phone]) [facility]) [address] [place] [address] MCH (RBC) [Entitic mass] 28.8 pg Normal 26.0-34.0 [facility] Comment on above: Performed By: #### L [id number] #### Auto Fleet Maintenance Manager: BIANCA NICHOLS ([id number]) [facility]) [address] [place] [address] MCHC 32.1 % Normal 30.5-36.0 [facility] Comment on above: Performed By: #### L [id number] #### Auto Fleet Maintenance Manager: BIANCA NICHOLS ([phone]) [facility]) [address] [place] [address] MCV (RBC) [Entitic vol] 89.9 fL Normal 77.0-99.0 [facility] Comment on above: Performed By: #### L [id number] #### Auto Fleet Maintenance Manager: BIANCA NICHOLS ([phone]) [facility]) [address] [place] [address] Monocytes (Bld) [#/Vol] 0.7 10*3/uL Normal 0.0-0.9 [facility] Comment on above: Performed By: #### L [id number] #### Auto Fleet Maintenance Manager: BIANCA NICHOLS ([phone]) [facility]) [address] [place] [address] Monocytes/100 WBC (Bld) 8.2 % Normal 5.0-13.0 [facility] Comment on above: Performed By: #### L [id number] #### Auto Fleet Maintenance Manager: BIANCA NICHOLS ([phone]) [facility] ([facility]) [address] [place] [address] NEUTROPHILS ABSOLUTE 3.9 10*3/uL Normal 1.8-7.5 [facility] Comment on above: Performed By: #### L [id number] #### Auto Fleet Maintenance Manager: BIANCA NICHOLS ([phone]) [facility] ([facility]) [address] [place] [address] Neutrophils/100 WBC (Bld) 48.8 % Normal 38.0-82.0 [facility] Comment on above: Performed By: #### L [id number] #### Auto Fleet Maintenance Manager: BIANCA NICHOLS ([phone]) [facility] ([facility]) [address] [place] [address] NRBC 0.0 /100 WBCs Normal 0.0-2.0 [facility] Comment on above: Performed By: #### L [id number] #### Auto Fleet Maintenance Manager: BIANCA NICHOLS ([phone]) [facility] ([facility]) [address] [place] [address] Platelet mean volume (Bld) [Entitic vol] 9.5 fL Normal 9.0-12.7 [facility] Comment on above: Performed By: #### L [id number] #### Auto Fleet Maintenance Manager: BIANCA NICHOLS ([id number]) [facility] ([facility]) [address] [place] [address] [place] Platelets (Bld) [#/Vol] 363 10*3/uL Normal 140-440 [facility] Comment on above: Performed By: #### L [id number] #### Auto Fleet Maintenance Manager: BIANCA NICHOLS ([phone]) [facility] ([facility]) [address] [place] [address] [place] RBC (Bld) [#/Vol] 3.78 10*6/uL Low 4.40-5.90 [facility] Comment on above: Performed By: #### L [id number] #### Auto Fleet Maintenance Manager: BIANCA NICHOLS ([phone]) [facility] ([facility]) [address] [place] [address] WBC (Bld) [#/Vol] 8.0 10*3/uL Normal 3.6-10.7 [facility] Comment on above: Performed By: #### L [id number] #### Auto Fleet Maintenance Manager: BIANCA NICHOLS ([phone]) [facility] ([facility]) [address] [place] [address] Laboratory - Chemistry and C hemistry - challengeon 04-27-2025 Glucose [Mass/Vol] 146 mg/dL High 70 - 100 mg/dL [facility] Glucose [Mass/Vol] 228 mg/dL High 70 - 100 mg/dL [facility] Glucose [Mass/Vol] 265 mg/dL High 70 - 100 mg/dL [facility] Glucose [Mass/Vol] 137 mg/dL High 70 - 100 mg/dL [facility] Laboratory - Microbiology an d Antimicrobial susceptibilityOrdered By: Vijaya Mariscal on 04-27-2025 Bacteria identified Anaer cx Nom (Unsp spec) Moderate Anaerobic Gram-negative bacilli, not B. fragilis Abnormal [facility] Laboratory - Microbiology an d Antimicrobial susceptibilityon 04-27-2025 Bacteria identified Aer cx Nom (Unsp spec) Rare Enterococcus raffinosus Abnormal [facility] Bacteria identified Cx Nom (Bld) No growth at 5 days [facility] No Panel Informationon 04-27 Interpretation and review of laboratory results Abnormal [facility] Performed by: [place] [address] CLIA ID: [id number] [facility] Interpretation and review of laboratory results Abnormal [facility] Performed by: [place] [id number] CLIA ID: [id number] [facility] Interpretation and review of laboratory results Abnormal [facility] Performed by: [address] [address] CLIA ID: [id number] [facility] Interpretation and review of laboratory results Abnormal [facility] Performed by: [place] [address] CLIA ID: [id number] [facility] Nursing Noteon 04-27-2025 Nursing Note Patient dressings changed as per orders. Patient tolerated well. Left PICC dressing changed patient tolerated well Normal [facility] BASIC METABOLIC PANELon 07-2 -2024 Anion gap [Moles/Vol] 6 mmol/L Normal 3-13 [facility] Comment on above: Performed By: #### L [id number] ####Auto Fleet Maintenance Manager: BIANCA NICHOLS ([phone])[facility] ([facility])[address] [place] [address] Calcium [Mass/Vol] 8.5 mg/dL Low 8.8-10.0 [facility] Comment on above: Performed By: #### L AB15 ####Auto Fleet Maintenance Manager: BIANCA NICHOLS ([phone])[facility] ([facility])[address] [place] [address] Chloride [Moles/Vol] 103 mmol/L Normal 98-107 [facility] Comment on above: Performed By: #### L AB15 ####Auto Fleet Maintenance Manager: BIANCA NICHOLS ([phone])[facility] ([facility])[address] [place] [address] CO2 [Moles/Vol] 27 mmol/L Normal 23-31 [facility] Comment on above: Performed By: #### L AB15 ####Auto Fleet Maintenance Manager: BIANCA NICHOLS ([phone])[facility] ([facility])[address] [place] [address] Creatinine [Mass/Vol] 0.62 mg/dL Low 0.72-1.25 [facility] Comment on above: Performed By: #### L AB15 ####Auto Fleet Maintenance Manager: BIANCA NIHCOLS ([phone])[facility] ([facility])[address] [place] [address] GLOMERULAR FILTRATION RATE ML/MIN/1.73 SQ M.PREDICTED >90.0 Normal >60.0 [facility] Comment on above: Result Comment: Calc ulation based on the Chronic Kidney Disease Epidemiology Collaboration (CKD-EPI) equation refit without adjustment for race Performed By: #### L AB15 ####Auto Fleet Maintenance Manager: BIANCA NICHOLS ([phone])[facility])[address] [place] [address] Glucose [Mass/Vol] 155 mg/dL High 82-115 [facility] Comment on above: Performed By: #### L AB15 ####Auto Fleet Maintenance Manager: BIANCA NICHOLS ([id number])[facility])[address] [place] [address] Potassium [Moles/Vol] 4.0 mmol/L Normal 3.5-5.1 [facility] Comment on above: Result Comment: [facility] potassium values may be up to 0.5 mmol/L lower than serum values. Performed By: #### L AB15 ####Auto Fleet Maintenance Manager: BIANCA NICHOLS ([phone])[facility])[address] [place] [address] Sodium [Moles/Vol] 136 mmol/L Normal 136-145 [facility] Comment on above: Performed By: #### L AB15 ####Auto Fleet Maintenance Manager: BIANCA NICHOLS ([phone])[facility])[address] [place] [address] Urea nitrogen [Mass/Vol] 19 mg/dL Normal 9-23 [facility] Comment on above: Performed By: #### L AB15 ####Auto Fleet Maintenance Manager: BIANCA NICHOLS ([phone])[facility])[address] [place] [address] Basic metabolic 1998 panelon 04-26-2025 Anion gap [Moles/Vol] 6 mmol/L 3 - 13 mmol/L [facility] Calcium [Mass/Vol] 8.5 mg/dL Low 8.8 - 10. 0 mg/dL [facility] Chloride [Moles/Vol] 103 mmol/L 98 - 10 7 mmol/L [facility] CO2 [Moles/Vol] 27 mmol/L 23 - 31 mmol/L [facility] Creatinine [Mass/Vol] 0.62 mg/dL Low 0.72 - 1.25 mg/dL [facility] GFR/1.73 sq M.predicted (S/P/Bld) [Vol rate/Area] - PINF [facility] Comment on above: Calculation based on the Chronic Kidney Disease Epidemiology Collaboration (CKD-EPI) equation refit without adjustment for race Glucose [Mass/Vol] 155 mg/dL High 82 - 115 mg/dL [facility] Interpretation and review of laboratory results Abnormal [facility] Potassium [Moles/Vol] 4 mmol/L 3.5 - 5.1 mmol/L [facility] Comment on above: Plasma potassium leonie ues may be up to 0.5 mmol/L lower than serum values. Sodium [Moles/Vol] 136 mmol/L 136 - 145 mmol/L [facility] Urea nitrogen [Mass/Vol] 19 mg/dL 9 - 23 mg/dL [facility] CBC (HEMOGRAM)on 04-26-2025 Erythrocyte distribution width (RBC) [Ratio] 14.8 % Normal 11.5-15.0 [facility] Comment on above: Performed By: #### L [id number] #### Auto Fleet Maintenance Manager: BIANCA NICHOLS ([phone]) [facility]) [address] [place] [address] Hematocrit (Bld) [Volume fraction] 33.8 % Low 40.0-52.0 [facility] Comment on above: Performed By: #### L [id number] #### Auto Fleet Maintenance Manager: BIANCA NICHOLS ([phone]) [facility]) [address] [place] [address] Hemoglobin (Bld) [Mass/Vol] 11.0 g/dL Low 13.0-18.0 [facility] Comment on above: Performed By: #### L [id number] #### Auto Fleet Maintenance Manager: BIANCA NICHOLS ([phone]) [facility]) [address] [place] [address] MCH (RBC) [Entitic mass] 29.3 pg Normal 26.0-34.0 [facility] Comment on above: Performed By: #### L [id number] #### Auto Fleet Maintenance Manager: BIANCA NICHOLS ([phone]) [facility]) [address] [place] [address] MCHC 32.5 % Normal 30.5-36.0 [facility] Comment on above: Performed By: #### L [id number] #### Auto Fleet Maintenance Manager: BIANCA NICHOLS ([phone]) [facility] [address] [place] [address] MCV (RBC) [Entitic vol] 89.9 fL Normal 77.0-99.0 [facility] Comment on above: Performed By: #### L [id number] #### Auto Fleet Maintenance Manager: BIANCA NICHOLS ([phone]) [facility] ([facility]) [address] [place] [address] Platelet mean volume (Bld) [Entitic vol] 9.5 fL Normal 9.0-12.7 [facility] Comment on above: Performed By: #### L [id number] #### Auto Fleet Maintenance Manager: BIANCA NICHOLS ([phone]) [facility] ([facility]) [address] [place] [address] Platelets (Bld) [#/Vol] 386 10*3/uL Normal 140-440 [facility] Comment on above: Performed By: #### L [id number] #### Auto Fleet Maintenance Manager: BIANCA NICHOLS ([phone]) [facility] ([facility]) [address] [place] [address] RBC (Bld) [#/Vol] 3.76 10*6/uL Low 4.40-5.90 [facility] Comment on above: Performed By: #### L [id number] #### Auto Fleet Maintenance Manager: BIANCA NICHOLS ([phone]) [facility] ([facility]) [address] [place] [address] WBC (Bld) [#/Vol] 7.3 10*3/uL Normal 3.6-10.7 [facility] Comment on above: Performed By: #### L [id number] #### Auto Fleet Maintenance Manager: BIANCA NICHOLS ([phone]) [facility] ([facility]) [address] [place] [address] CBC panel Auto (Bld)on 04-26 Erythrocyte distribution width (RBC) [Ratio] 14.8 % 11.5 - 15.0 % [facility] Hematocrit (Bld) [Volume fraction] 33.8 % Low 40.0 - 52.0 % [facility] Hemoglobin (Bld) [Mass/Vol] 11 g/dL Low 13.0 - 18.0 g/dL [facility] Interpretation and review of laboratory results Abnormal [facility] MCH (RBC) [Entitic mass] 29.3 pg 26. 0 - 34.0 pg [facility] MCHC (RBC) [Mass/Vol] 32.5 % 30.5 - 36.0 % [facility] MCV (RBC) [Entitic vol] 89.9 fL 77.0 - 99.0 fL [facility] Platelet mean volume (Bld) [Entitic vol] 9.5 fL 9.0 - 12.7 fL [facility] Platelets (Bld) [#/Vol] 386 10*3/uL 140 - 440 10*3/uL [facility] RBC (Bld) [#/Vol] 3.76 10*6/uL Low 4.40 - 5.9 0 10*6/uL [facility] WBC (Bld) [#/Vol] 7.3 10*3/uL 3.6 - 10.7 10*3/uL [facility] IRON AND TIBCon 04-26-2025 IRON BINDING CAPACITY 136 ug/dL Low 250-450 [facility] Comment on above: Performed By: #### L [id number] ####Auto Fleet Maintenance Manager: BIANCA NICHOLS ([phone])[address] IRON SATURATION 44.1 % Normal 20.0-50.0 [facility] Comment on above: Performed By: #### L [id number] ####Auto Fleet Maintenance Manager: BIANCA NICHOLS ([phone])[facility] ([facility])[address] [place] [address] IRON, TOTAL 60 ug/dL Low 65-175 [facility] Comment on above: Performed By: #### L [id number] ####Auto Fleet Maintenance Manager: BIANCA NICHOLS ([phone])[facility])[address] [place] [address] Iron and Iron binding capaci ty panelon 04-26-2025 Interpretation and review of laboratory results Abnormal [facility] Iron [Mass/Vol] 60 ug/dL Low 65 - 175 ug/dL [facility] Iron binding capacity [Mass/Vol] 136 ug/dL Low 250 - 450 ug/dL [facility] Iron saturation [Mass fraction] 44.1 % 20.0 - 50.0 % [facility] Laboratory - Chemistry and C hemistry - challengeon 04-26-2025 Glucose [Mass/Vol] 244 mg/dL High 70 - 100 mg/dL [facility] Glucose [Mass/Vol] 199 mg/dL High 70 - 100 mg/dL [facility] Glucose [Mass/Vol] 219 mg/dL High 70 - 100 mg/dL [facility] Glucose [Mass/Vol] 185 mg/dL High 70 - 100 mg/dL [facility] [place] No Panel Informationon 04-26 Interpretation and review of laboratory results Abnormal [facility] Performed by: [address] [address] CLIA ID: [id number] [facility] [place] Interpretation and review of laboratory results Abnormal [facility] Performed by: [address] [address] CLIA ID: [id number] [facility] Interpretation and review of laboratory results Abnormal [facility] Performed by: [address] [address] CLIA ID: [id number] [facility] Interpretation and review of laboratory results Abnormal [facility] Performed by: [address] [address] CLIA ID: [id number] [facility] BASIC METABOLIC PANELon 04-05 Anion gap [Moles/Vol] 7 mmol/L Normal 3-13 [facility] Comment on above: Performed By: #### L [id number] #### Auto Fleet Maintenance Manager: BIANCA NICHOLS ([phone]) [facility] ([facility]) [address] [place] [address] Calcium [Mass/Vol] 8.2 mg/dL Low 8.8-10.0 [facility] Comment on above: Performed By: #### L [id number] #### Auto Fleet Maintenance Manager: BIANCA NICHOLS ([phone]) [facility] ([facility]) [address] [place] [address] Chloride [Moles/Vol] 101 mmol/L Normal 98-107 [facility] Comment on above: Performed By: #### L [id number] #### Auto Fleet Maintenance Manager: BIANCA NICHOLS ([id number]) [facility] ([facility]) [address] [place] [address] CO2 [Moles/Vol] 26 mmol/L Normal 23-31 [facility] Comment on above: Performed By: #### L [id number] #### Auto Fleet Maintenance Manager: BIANCA NICHOLS ([phone]) [facility] ([facility]) [address] [place] [address] Creatinine [Mass/Vol] 0.73 mg/dL Normal 0.72-1.25 [facility] Comment on above: Performed By: #### L [id number] #### Auto Fleet Maintenance Manager: BIANCA NICHOLS ([phone]) [facility]) [address] [place] [address] GLOMERULAR FILTRATION RATE ML/MIN/1.73 SQ M.PREDICTED >90.0 Normal >60.0 [facility] Comment on above: Result Comment: Calc ulation based on the Chronic Kidney Disease Epidemiology Collaboration (CKD-EPI) equation refit without adjustment for race Performed By: #### L [id number] #### Auto Fleet Maintenance Manager: BIANCA NICHOLS ([phone]) [facility]) [address] [place] [address] Glucose [Mass/Vol] 213 mg/dL High 82-115 [facility] Comment on above: Performed By: #### L [id number] #### Auto Fleet Maintenance Manager: BIANCA NICHOLS ([phone]) [facility]) [address] [place] [address] Potassium [Moles/Vol] 4.3 mmol/L Normal 3.5-5.1 [facility] Comment on above: Result Comment: [facility] potassium values may be up to 0.5 mmol/L lower than serum values. Performed By: #### L [id number] #### Auto Fleet Maintenance Manager: BIANCA NICHOLS ([phone]) [facility] ([facility]) [address] [place] [address] [place] Sodium [Moles/Vol] 134 mmol/L Low 136-145 [facility] Comment on above: Performed By: #### L [id number] #### Auto Fleet Maintenance Manager: BIANCA NICHOLS ([phone]) [facility] ([facility]) [address] [place] [address] Urea nitrogen [Mass/Vol] 14 mg/dL Normal 9-23 [facility] Comment on above: Performed By: #### L [id number] #### Auto Fleet Maintenance Manager: BIANCA NICHOLS ([phone]) [facility] ([facility]) [address] [place] [address] Bacteria identified Aer cx N om (Unsp spec)Ordered By: Joy York on 04-25-2025 Gram Stain Result Many Polymorphonuclear leukocytes per low power field Abnormal [facility] Gram Stain Result Negative Abnormal [facility] [facility] e[facility] Gram Stain Result Positive Abnormal [facility] Interpretation and review of laboratory results Abnormal [facility] PBP2A Positive [facility] Basic metabolic 1998 panelon 04-25-2025 Anion gap [Moles/Vol] 7 mmol/L 3 - 13 mmol/L [facility] Calcium [Mass/Vol] 8.2 mg/dL Low 8.8 - 10. 0 mg/dL [facility] Chloride [Moles/Vol] 101 mmol/L 98 - 10 7 mmol/L [facility] CO2 [Moles/Vol] 26 mmol/L 23 - 31 mmol/L [facility] Creatinine [Mass/Vol] 0.73 mg/dL 0.72 - 1.25 mg/dL [facility] GFR/1.73 sq M.predicted (S/P/Bld) [Vol rate/Area] - PINF [facility] Comment on above: Calculation based on the Chronic Kidney Disease Epidemiology Collaboration (CKD-EPI) equation refit without adjustment for race Glucose [Mass/Vol] 213 mg/dL High 82 - 115 mg/dL [facility] Interpretation and review of laboratory results Abnormal [facility] Potassium [Moles/Vol] 4.3 mmol/L 3.5 - 5.1 mmol/L [facility] Comment on above: Plasma potassium leonie ues may be up to 0.5 mmol/L lower than serum values. Sodium [Moles/Vol] 134 mmol/L Low 136 - 145 mmol/L [facility] Urea nitrogen [Mass/Vol] 14 mg/dL 9 - 23 mg/dL [facility] CBC W Auto Differential pane l (Bld)on 04-25-2025 Basophils (Bld) [#/Vol] 0 10*3/uL 0.0 - 0.2 10*3/uL [facility] Basophils/100 WBC (Bld) 0.4 % 0.0 - 2.0 % [facility] Eosinophils (Bld) [#/Vol] 0.1 10*3/uL 0.0 - 0.5 10*3/uL [facility] Eosinophils/100 WBC (Bld) 0.8 % 0.0 - 6.0 % [facility] Erythrocyte distribution width (RBC) [Ratio] 14.8 % 11.5 - 15.0 % [facility] Hematocrit (Bld) [Volume fraction] 32.6 % Low 40.0 - 52.0 % [facility] Hemoglobin (Bld) [Mass/Vol] 10.4 g/dL Low 13.0 - 18.0 g/dL [facility] Immature granulocytes (Bld) [#/Vol] 0 10*3/uL NINF - 0.1 10*3/uL [facility] Immature granulocytes/100 WBC (Bld) 0.4 % 0.0 - 2.0 % [facility] Interpretation and review of laboratory results Abnormal [facility] Lymphocytes (Bld) [#/Vol] 2 10*3/uL 1.0 - 4.3 10*3/uL [facility] Lymphocytes/100 WBC (Bld) 20.7 % 15.0 - 45.0 % [facility] MCH (RBC) [Entitic mass] 28.7 pg 26. 0 - 34.0 pg [facility] MCHC (RBC) [Mass/Vol] 31.9 % 30.5 - 36.0 % [facility] MCV (RBC) [Entitic vol] 90.1 fL 77.0 - 99.0 fL [facility] Monocytes (Bld) [#/Vol] 0.9 10*3/uL 0.0 - 0.9 10*3/uL [facility] Monocytes/100 WBC (Bld) 9.3 % 5.0 - 13.0 % [facility] Neutrophils (Bld) [#/Vol] 6.5 10*3/uL 1.8 - 7.5 10*3/uL [facility] Neutrophils/100 WBC (Bld) 68.4 % 38.0 - 82.0 % [facility] Nucleated RBC/100 WBC (Bld) [Ratio] 0 % [facility] Platelet mean volume (Bld) [Entitic vol] 9.9 fL 9.0 - 12.7 fL [facility] Platelets (Bld) [#/Vol] 421 10*3/uL 140 - 440 10*3/uL [facility] RBC (Bld) [#/Vol] 3.62 10*6/uL Low 4.40 - 5.9 0 10*6/uL [facility] WBC (Bld) [#/Vol] 9.5 10*3/uL 3.6 - 10.7 10*3/uL [facility] CBC WITH AUTO DIFFERENTIALon 04-25-2025 Basophils (Bld) [#/Vol] 0.0 10*3/uL Normal 0.0-0.2 [facility] Comment on above: Performed By: #### L [id number] #### [employer] Maintenance Manager: BIANCA NICHOLS ([phone]) [facility] ([facility]) [address] [place] [address] Basophils/100 WBC (Bld) 0.4 % Normal 0.0-2.0 [facility] Comment on above: Performed By: #### L [id number] #### Auto Fleet Maintenance Manager: BIANCA NICHOLS ([phone]) [facility] ([facility]) [address] [place] [address] [place] Eosinophils (Bld) [#/Vol] 0.1 10*3/uL Normal 0.0-0.5 [facility] Comment on above: Performed By: #### L [id number] #### [employer] Maintenance Manager: BIANCA NICHOLS ([phone]) [facility] ([facility]) [address] [place] [address] Eosinophils/100 WBC (Bld) 0.8 % Normal 0.0-6.0 [facility] Comment on above: Performed By: #### L [id number] #### Auto [employer] Maintenance Manager: BIANCA NICHOLS ([phone]) [facility] ([facility]) [address] [place] [address] [place] Erythrocyte distribution width (RBC) [Ratio] 14.8 % Normal 11.5-15.0 [facility] Comment on above: Performed By: #### L [id number] #### [employer] Maintenance Manager: BIANCA NICHOLS ([phone]) [facility]) [address] [place] [address] Hematocrit (Bld) [Volume fraction] 32.6 % Low 40.0-52.0 [facility] Comment on above: Performed By: #### L [id number] #### Auto Fleet Maintenance Manager: BIANCA NICHOLS ([phone]) [facility] ([facility]) [address] [place] [address] Hemoglobin (Bld) [Mass/Vol] 10.4 g/dL Low 13.0-18.0 [facility] Comment on above: Performed By: #### L [id number] #### Auto Fleet Maintenance Manager: BIANCA NICHOLS ([phone]) [facility]) [address] [place] [address] IMMATURE GRANS % 0.4 % Normal 0.0-2.0 [facility] Comment on above: Performed By: #### L [id number] #### Auto Fleet Maintenance Manager: BIANCA NICHOLS ([phone]) [facility]) [address] [place] [address] IMMATURE GRANS ABSOLUTE 0.0 10*3/uL Normal <0.1 [facility] Comment on above: Performed By: #### L [id number] #### Auto Fleet Maintenance Manager: BIANCA NICHOLS ([phone]) [facility]) [address] [place] [address] Lymphocytes (Bld) [#/Vol] 2.0 10*3/uL Normal 1.0-4.3 [facility] Comment on above: Performed By: #### L [id number] #### Auto Fleet Maintenance Manager: BIANCA NICHOLS ([phone]) [facility]) [address] [place] [address] Lymphocytes/100 WBC (Bld) 20.7 % Normal 15.0-45.0 [facility] Comment on above: Performed By: #### L [id number] #### Auto Fleet Maintenance Manager: BIANCA NICHOLS ([phone]) [facility] ([facility]) [address] [place] [address] MCH (RBC) [Entitic mass] 28.7 pg Normal 26.0-34.0 [facility] Comment on above: Performed By: #### L [id number] #### Auto Fleet Maintenance Manager: BIANCA NICHOLS ([phone]) [facility] ([facility]) [address] [place] [address] MCHC 31.9 % Normal 30.5-36.0 [facility] Comment on above: Performed By: #### L [id number] #### Auto Fleet Maintenance Manager: BIANCA NICHOLS ([phone]) [facility] ([facility]) [address] [place] [address] MCV (RBC) [Entitic vol] 90.1 fL Normal 77.0-99.0 [facility] Comment on above: Performed By: #### L [id number] #### Auto Fleet Maintenance Manager: BIANCA NICHOLS ([phone]) [facility] ([facility]) [address] [place] [address] Monocytes (Bld) [#/Vol] 0.9 10*3/uL Normal 0.0-0.9 [facility] Comment on above: Performed By: #### L [id number] #### Auto Fleet Maintenance Manager: BIANCA NICHOLS ([phone]) [facility] ([facility]) [address] [place] [address] Monocytes/100 WBC (Bld) 9.3 % Normal 5.0-13.0 [facility] Comment on above: Performed By: #### L [id number] #### Auto Fleet Maintenance Manager: BIANCA NICHOLS ([phone]) [facility] ([facility]) [address] [place] [address] NEUTROPHILS ABSOLUTE 6.5 10*3/uL Normal 1.8-7.5 [facility] Comment on above: Performed By: #### L [id number] #### Auto Fleet Maintenance Manager: BIANCA NICHOLS ([phone]) [facility] ([facility]) [address] [place] [address] Neutrophils/100 WBC (Bld) 68.4 % Normal 38.0-82.0 [facility] Comment on above: Performed By: #### L [id number] #### Auto Fleet Maintenance Manager: BIANCA NICHOLS ([phone]) [facility] ([facility]) [address] [place] [address] NRBC 0.0 /100 WBCs Normal 0.0-2.0 [facility] Comment on above: Performed By: #### L [id number] #### Auto Fleet Maintenance Manager: BIANCA NICHOLS ([phone]) [facility] ([facility]) [address] [place] [address] Platelet mean volume (Bld) [Entitic vol] 9.9 fL Normal 9.0-12.7 [facility] Comment on above: Performed By: #### L [id number] #### Auto Fleet Maintenance Manager: BIANCA NICHOLS ([id number]) [facility] ([facility]) [address] [place] [address] Platelets (Bld) [#/Vol] 421 10*3/uL Normal 140-440 [facility] Comment on above: Performed By: #### L [id number] #### Auto Fleet Maintenance Manager: BIANCA NICHOLS ([id number]) [facility] ([facility]) [address] [place] [address] RBC (Bld) [#/Vol] 3.62 10*6/uL Low 4.40-5.90 [facility] Comment on above: Performed By: #### L [id number] #### Auto Fleet Maintenance Manager: BIANCA NICHOLS ([phone]) [facility] ([facility]) [address] [place] [address] WBC (Bld) [#/Vol] 9.5 10*3/uL Normal 3.6-10.7 [facility] Comment on above: Performed By: #### L [id number] #### Auto Fleet Maintenance Manager: BIANCA NICHOLS ([phone]) [facility] ([facility]) [address] [place] [address] Laboratory - Chemistry and C hemistry - challengeon 04-25-2025 Glucose [Mass/Vol] 220 mg/dL High 70 - 100 mg/dL [facility] Glucose [Mass/Vol] 226 mg/dL High 70 - 100 mg/dL [facility] Glucose [Mass/Vol] 281 mg/dL High 70 - 100 mg/dL [facility] Glucose [Mass/Vol] 187 mg/dL High 70 - 100 mg/dL [facility] Laboratory - Microbiology an d Antimicrobial susceptibilityOrdered By: Joy York on 04-25-2025 Bacteria identified Aer cx Nom (Unsp spec) Moderate enteric gsoia present [facility] Bacteria identified Aer cx Nom (Unsp spec) Moderate Staphylococcus aureus Abnormal [facility] Comment on above: Methicillin-resistan t Staphylococcus aureus (MRSA) No Panel Informationon 04-25 Interpretation and review of laboratory results Abnormal [facility] Performed by: [address] [address] CLIA ID: [id number] [facility] [place] [facility] Interpretation and review of laboratory results Abnormal [facility] Performed by: [address] [address] CLIA ID: [id number] [facility] Interpretation and review of laboratory results Abnormal [facility] Performed by: [address] [address] CLIA ID: [id number] [facility] Interpretation and review of laboratory results Abnormal [facility] Performed by: [address] [address] CLIA ID: [id number] [facility] [place] [facility] No Panel InformationOrdered By: Genaro Kelly on 04-25-2025 Case Report Surgical Pathology Case: [id number] Authorizing Provider: Kaela Durand MD Collected: 04/24/2025 0806 Ordering Location: [facility] Received: 04/24/2025 1209 Pathologist: Genaro Kelly MD PhD Specimen: LEFT ISCHIAL BONE [facility] [place] Work Phone: Clinical Information e8stmEQiXQXifDCpVIS wM XeruhFdYBUywDKmE4Tzke atYAqpCR2cGM1ysBfegLF dpRHeHOTpUaGae1zsb684 yNKyk3hwPWRVQNayITWMA Cp5pCckG89py5W4OztzE9 xyZWQwXGdyZWVuMFxibHV aMOs6FAQojVWtdrSyCaUa DDWihYShcGF1YIWcYI6xt bmnFDyhAJhmKGVlriQ8SB WrbKSyF4OkDQBjPZ3zvup hEEQ1PGmfSQLhQMS7LxDv PBVpa2Gfhwj5MsMqdFOqg 4HgF1qdibIuyBowvaTwzs 9uZVxjbGJyZHJsXGJyZHJ bh93tZSElUkTwcgFgQwEn tf9pbuLyM7wfmpOrUdoxc dHjbs3kFCixaYJnznVsxR JbX2kvdHVQgVZ8lHRfY8r 7J6hruRw1SWFzWLUmuHz2 NTgyMFxwYXJkXGludGJsX LTrSZbxXXEjMyZnN4CdNQ 98pTTrQNYpfSXeKK7hxNK wtYfeyVn6wSDhGW65hFAj IHNpdGUgKEhDQykgLSBNO PNeHHxjN8cQIY2jZK1JCU 5yP9UgxUcjpjGhcBgoy1s lxLSei1FlxIVtjNOum4my lPVdWND8FLMzKFEkz67tE FGcIuPyuslnMuXghb3scz OeJ5mvljMsizvsseBkks6 uZVxjbGJyZHJiXGJyZHJu i70bMPVuttRceFNbtCbmj BH9f1xoJZRyB1ndfTaQsJ E1sUO7UzOgS8MsvAe7JMF vXBJpvwDobD83LezsDBAg a9J4wsNzrL5rlJT1HO7gK SFwZ6M3G1EnjAQmMWazu5 0rUFH6IMxqIUWdRLzGOrv eCPGPFVdqDNNwWKrUV0Ct ULRgK47gSUKctIsrdH35O qkzyp71RNWzyyOrjCIbkI == [employer] Work Phone: Comment d2iipXLjHNDchGUvJXJs M WbkkwPrDLTrqZSnH3Kgvm nqKFbhZN8zAX9glQqojER eyWLxUYCkOyVvm7ppv393 zZAcq4okXJUFSZwsXKZVA Ho1bQxlL82ke8F5DamhD7 0knADzWJX6XDUuXUIrwJZ uLFMoYDX6ZUPceNWiF9ly XMJeQU6uvpkgPHumKRvrI JHbxVV0OIWxqMSqR1EeAM SzPDstWCQyicp1ZyPaWr4 vdGVyeTcyMFxwYXJkXHBs YWluXGZzMjAgRHIuIFMuI EKnt49oa02bMPWdjjF1mz MuXHBhcn0= [employer] Work Phone: Disclaimer p0pqmRPeLMIkeITaCnCv M YWeEFDpf3iqRFPdrEQtYp EwMzNcZnRuYmpcdWMxXGR cCuSxd5blf819xSDwc8xu YSSnHpP4iCBcZCJlR21dG AZKO007ADLxXRtvl8kai1 AwYRRzzMWck3B8UTPSTHa eNWUVRZl4aMtxS67de3Z2 NcrmD9xjQZVcTSSiJ9IeP G3jQJXrQxw3MEH6BSL3WQ QdSZWmA8HhIU1uUFZyxWT uNWm7t0rvuFzsVIThEBV6 h0hcNCfxrlKeOH0odd8th Me2o5itdhWdWGDbIRMihV DHBAExN6TowQhsSg3opMr 8uOmtArvvTBU1Nvg0JM4j jf19pzn3pXddDQFoytyxZ jY5NHnxSDVpnpqxQTj4SH vkUAOahNV6UPLehHFoA7O zAEOpGI5fjep6FSF4QMgt UTWzElD8HULtmZYoDQWvr GugXRdhr434OWN1PaGwKO 0hH8Pno7U1qL7lxTLsJXR nwEObYaMnNBLfig7itLMl NLhbh6BaLCZ5hwX2dJMdv XYuOQLaGS56Elyzh9CgGy grBFN7MYQhlzOda6Udp1q cPgUoggYoG5vkQ9YzZFWi MDAeFKHpWeJiwiBfy7Xls 1UzxLOfkHp8j0jkWWGnXM PguJlja2cyFWX5TPJgW0Z 9eAOcz7uxZIgoHHOolQN9 oaF2SKCrtMCcJ4MqxM1kI DGqKS7eaqk5r1jtWXW4TB nrFKEiCuD5rpV6BRWmpRT sQAZbiNcgQPiyy414UNS5 IaPyWQRgt5IuI7XgtNifY 77fyGstT09tEOCbdXkhnH 9fsKopnR0zReZcAtYfEGe xbFxwbGFpblxmMVxmczE2 TTbvmwnnPBYsZIebD5mcP yOrGRCidFgsXAkvw2GlUQ PcWGOhCUFmKImdJ8yzgT6 psymaRZmxGZAoxIrbr4re VjVzzAD1OV4gxnPzAFHrl MahdbF9nvQinAbqbG6csH 4xpGmljF9moTCguOA7jjq sIGluIHNpdHUgaHlicmlk hWewbCltgtwrvH3xPJC6t RMxZOL7pNBxNAYcJLJkNN NeiR07gv1wySIwisZiA7M zA2FieTUzdKvyPjmfrTHc aRDaAr2gbPEhFC0eVAPad OTaN7ToXZ1kFLLvrlubJC IgVGhlIHVzZSBvZiBvbmU cl9ItnP0wGTJgXKKjJG93 bvNathT4xGYzSUFcvcOhj GVzdHMgaXMgcmVndWxhdG SmRKPdTNXrXJFcIZk4cCZ de9FuG6wriUSpxzJcN0Wn gDLyTJPSMX5vZBtgo8Djw VDcdCAyl5SwETJvBYJouD 7hITVxAU8sWXLcASxvGHI urjZgia3fonFgTLWkVUVa I2ToqyvxtGzotdQeWPXnz e3defLwBTL9VUGeKQKjwU babFFotOUdIDFzhtG6b1M aKGRoi3YfH2WnkIAuUXCc iYHjLVH0x4MkhI1aNCqlc IUfAXVhOP3vgZQbJUWdDI NsZWFyZWQgYnkgdGhlIFV QALClw7ZcLV2mFPFqdOvk PWPxfJ7wk5XtVFNsp92tR EZEQSkuIFRoZSBGREEgaG FzIGRldGVybWluZWQgdGh qbWIzyUClOTSkAMZmLE9v USHereAvqPBvd4ElpWRke bNmt0BljcDzARSnRQJ9Oi BccGFyXHBhciBBbGwgaW1 ebV1uc4YcnE8vHQhrbuDh qCAsZp7ilMVxXJ3aCMAkw mFmZmluIGVtYmVkZGVkIH Cga5D8LQ0kCJPywk3gamm mtQOmkP4luTRbcwQhVZ0r PT1wO7Z5iTYpVUJeelDeg 7qoZQk8fUEnRRIsuUKjlG QdJryxOHH5OEOeURO1jpD iufFpEHIsgZwvpKS0mVUo JEStTWEnPREnYC71P5Ovu 3TaY2tkSK00VSTwIMBaMK VrjvPat0flKTZab8tgXVN agZZaK6QrAVYohICgwtwy SuEeBCR8KQDzMGE6mTWiP PJgY2UjxFEnhGIbcK48FE 2eoNI0IB2nISU3KEnvjI2 fGzUEpV16nj4flSY6i6Ik RT3hI3YlALAik1W7tfFmV ONeST7nhPQbXXQcGYQvbV lkYXRlZCBvbiBkZWNhbGN hXevuSJG5nWErlTWxIwBD RPJ2bREnUAHvb7IiYWMsA NZuvpWwtaDsSFXkLWD9wY OoRICejTSyr70eN8f7CB3 baPhaBMXgpLFcWUIro8Rc jTObiPn3tDXwZaVuTSuxR YMmDBfukKi9aDK0AR1gLV UwB5WcU0rtuPFqVOQfVUC afBFxom9rxCYbiP== [facility] Work Phone: Gross Description l4mmkRQnUPCyyCMlIHEx M OnbkhCtHZYlzJLfJ2Fhjz veXYrwQD7gTD5jhHinpQB nvUTwBOMaSdKks9aqm337 kZHxc2voYCIKTTmnFTTZU Mf1nKsbV82my8M5JxcnI5 1dfMQlDFF8PGIpTBAmrTM oGJKzWAD5TTAueSEhA7vk AWLpOQ4iljohHDjkMWesW UNzaMI4TQRwcOWtP7JdLH JsTTwiLDUbmek5WcFaNf0 vdGVyeTcyMFxwYXJkXHBs EHfuUUFtUqYwSqQpCPq3D YCuaS5pMn4ezAZxgO6ehN YhZWewIXKixDBzbMTyl9R oaWFsIGJvbmUiIGlzIGEg bNhnzs6gQRWmtH2vzHgur kQqUaLvm07rWMZnHIZznN Eih3UaYGFoLN92TToqBB9 1BAuqGT1rUQTjJvHyZLwx IHNwZWNpbWVuIGlzIGVud RwoNFs0KNS1Cb0joZTiYA EfrqTaqjNpW2Iqi4M7mYU dHBPRz3ImRtKbYg6sFDHw YWwgaXMgbmVlZGVkIGZvc kD7oNAcf0CzS4umWX5oCG BccGFyfQ== [employer] Work Phone: Pathologist Interpretation Location [facility], [address] [place] [address], [facility]ly [facility] [address], CLIA: [id number]; Joint Commission: [id number]; CAP: [id number] [facility] [employer] Phone: Pathology report final diagnosis Narrative s2ymeKSxSUHirWShXGGqU OavphUiJESybFGvV7Rnta uyTRfeWF5hQW2pqXmhzIO aiPDzSXAdHySbz4ejg403 iLCpr4slZYBDTHtuITATG Sx8sIlzG35ri2E7PqqaN1 6daNVtWMU8RXIkDARfrSE hMTCyHGV1SCLsqFKbS4sb WBIpJK7pjbvhKFmxZUhaT PHmxGY8BSRekZHyN1DuYR AfRHykBVXkgfj3TpYpIz1 vdGVyeTcyMFxwYXJkXHBs YWluXGZzMjAgTEVGVCBJU 9WSUOZPZBSHKhUmZEGDM1 BTWTpccGFyXGVuZGFzaCA cWE2ARVPXKMEfL0UBXzTN UIGSH26wWLeFP8TWXDBYC CUUIRJUZN8HYLXMCcANL7 4yW4PuVs1VZMDAGPLMILI IZohOK8RUDSIOF9UNNWDX I7QEN73WHCkAHRwHHajnS XJ9 [facility] Work Phone: [facility] Work Phone: 30on 04-24-2025 30 Problem: Pain - Adul t Goal: Verbalizes/displays adequate comfort level or baseline comfort level Outcome: Progressing Problem: Safety - Adult Goal: Free from fall injury Outcome: Progressing Problem: Discharge Planning Goal: Discharge to home or other facility with appropriate resources Outcome: Progressing Problem: Chronic Conditions and Co-morbidities Goal: Patient's chronic conditions and co-morbidity symptoms are monitored and maintained or improved Outcome: Progressing Normal [facility] [id number] 04-24-2025 [id number] SW consult-[facility] transportation. SW reviewed chart. Pt is a [facility] of [facility]. [facility] is responsible for pt transportation for medical appointments. . Normal [facility] BASIC METABOLIC PANELon 04-05 Anion gap [Moles/Vol] 8 mmol/L Normal 3-13 [facility] Comment on above: Performed By: #### L [id number] #### Auto Fleet Maintenance Manager: BIANCA NICHOLS ([phone]) [facility]) [address] [place] [address] Calcium [Mass/Vol] 8.4 mg/dL Low 8.8-10.0 [facility] Comment on above: Performed By: #### L AB15 #### Auto Fleet Maintenance Manager: BIANCA NICHOLS ([phone]) [facility]) [address] [place] [address] Chloride [Moles/Vol] 101 mmol/L Normal 98-107 [facility] Comment on above: Performed By: #### L AB15 #### Auto Fleet Maintenance Manager: BIANCA NICHOLS ([phone]) [facility] ([facility]) [address] [place] [address] [place] CO2 [Moles/Vol] 27 mmol/L Normal 23-31 [facility] Comment on above: Performed By: #### L AB15 #### Auto Fleet Maintenance Manager: BIANCA NICHOLS ([phone]) [facility]) [address] [place] [address] Creatinine [Mass/Vol] 0.59 mg/dL Low 0.72-1.25 [facility] Comment on above: Performed By: #### L AB15 #### Auto Fleet Maintenance Manager: BIANCA NICHOLS ([phone]) [facility]) [address] [place] [address] GLOMERULAR FILTRATION RATE ML/MIN/1.73 SQ M.PREDICTED >90.0 Normal >60.0 [facility] Comment on above: Result Comment: Calc ulation based on the Chronic Kidney Disease Epidemiology Collaboration (CKD-EPI) equation refit without adjustment for race Performed By: #### L AB15 #### [employer] Maintenance Manager: BIANCA NICHOLS ([phone]) [facility] ([facility]) [address] [place] [address] Glucose [Mass/Vol] 113 mg/dL Normal 82-115 [facility] Comment on above: Performed By: #### L [id number] #### [employer] Maintenance Manager: BIANCA NICHOLS ([phone]) [facility]) [address] [place] [address] Potassium [Moles/Vol] 4.0 mmol/L Normal 3.5-5.1 [facility] Comment on above: Result Comment: [facility] potassium values may be up to 0.5 mmol/L lower than serum values. Performed By: #### L [id number] #### [employer] Maintenance Manager: BIANCA NICHOLS ([id number]) [facility] ([facility]) [address] [place] [address] Sodium [Moles/Vol] 136 mmol/L Normal 136-145 [facility] Comment on above: Performed By: #### L [id number] #### [employer] Manager: BIANCA NICHOLS ([id number]) [facility] ([facility]) [address] [place] [address] [place] Urea nitrogen [Mass/Vol] 7 mg/dL Low 9-23 [facility] Comment on above: Performed By: #### L [id number] #### [employer] Manager: BIANCA NICHOLS ([id number]) [facility]) [address] [place] [address] Basic metabolic 1998 panelon 04-24-2025 Anion gap [Moles/Vol] 8 mmol/L 3 - 13 mmol/L [facility] Calcium [Mass/Vol] 8.4 mg/dL Low 8.8 - 10. 0 mg/dL [facility] Chloride [Moles/Vol] 101 mmol/L 98 - 10 7 mmol/L [facility] CO2 [Moles/Vol] 27 mmol/L 23 - 31 mmol/L [facility] Creatinine [Mass/Vol] 0.59 mg/dL Low 0.72 - 1.25 mg/dL [facility] GFR/1.73 sq M.predicted (S/P/Bld) [Vol rate/Area] - PINF [facility] Comment on above: Calculation based on the Chronic Kidney Disease Epidemiology Collaboration (CKD-EPI) equation refit without adjustment for race Glucose [Mass/Vol] 113 mg/dL 82 - 115 mg/dL [facility] Interpretation and review of laboratory results Abnormal [facility] Potassium [Moles/Vol] 4 mmol/L 3.5 - 5.1 mmol/L [facility] Comment on above: Plasma potassium leonie ues may be up to 0.5 mmol/L lower than serum values. Sodium [Moles/Vol] 136 mmol/L 136 - 145 mmol/L [facility] Urea nitrogen [Mass/Vol] 7 mg/dL Low 9 - 23 mg/dL [facility] CBC W Auto Differential pane l (Bld)on 04-24-2025 Basophils (Bld) [#/Vol] 0.1 10*3/uL 0.0 - 0.2 10*3/uL [facility] Basophils/100 WBC (Bld) 0.6 % 0.0 - 2.0 % [facility] Eosinophils (Bld) [#/Vol] 0.4 10*3/uL 0.0 - 0.5 10*3/uL [facility] Eosinophils/100 WBC (Bld) 4 % 0.0 - 6.0 % [facility] Erythrocyte distribution width (RBC) [Ratio] 14.9 % 11.5 - 15.0 % [facility] Hematocrit (Bld) [Volume fraction] 32.8 % Low 40.0 - 52.0 % [facility] Hemoglobin (Bld) [Mass/Vol] 10.6 g/dL Low 13.0 - 18.0 g/dL [facility] Immature granulocytes (Bld) [#/Vol] 0 10*3/uL NINF - 0.1 10*3/uL [facility] Immature granulocytes/100 WBC (Bld) 0.4 % 0.0 - 2.0 % [facility] Interpretation and review of laboratory results Abnormal [facility] Lymphocytes (Bld) [#/Vol] 2.2 10*3/uL 1.0 - 4.3 10*3/uL [facility] Lymphocytes/100 WBC (Bld) 23.9 % 15.0 - 45.0 % [facility] MCH (RBC) [Entitic mass] 28.8 pg 26. 0 - 34.0 pg [facility] MCHC (RBC) [Mass/Vol] 32.3 % 30.5 - 36.0 % [facility] MCV (RBC) [Entitic vol] 89.1 fL 77.0 - 99.0 fL [facility] Monocytes (Bld) [#/Vol] 0.7 10*3/uL 0.0 - 0.9 10*3/uL [facility] Monocytes/100 WBC (Bld) 8 % 5.0 - 13.0 % [facility] Neutrophils (Bld) [#/Vol] 5.9 10*3/uL 1.8 - 7.5 10*3/uL [facility] Neutrophils/100 WBC (Bld) 63.1 % 38.0 - 82.0 % [facility] Nucleated RBC/100 WBC (Bld) [Ratio] 0 % [facility] Platelet mean volume (Bld) [Entitic vol] 9.8 fL 9.0 - 12.7 fL [facility] Platelets (Bld) [#/Vol] 367 10*3/uL 140 - 440 10*3/uL [facility] RBC (Bld) [#/Vol] 3.68 10*6/uL Low 4.40 - 5.9 0 10*6/uL [facility] WBC (Bld) [#/Vol] 9.3 10*3/uL 3.6 - 10.7 10*3/uL [facility] CBC WITH AUTO DIFFERENTIALon 04-24-2025 Basophils (Bld) [#/Vol] 0.1 10*3/uL Normal 0.0-0.2 [facility] Comment on above: Performed By: #### L [id number] #### Auto Fleet Maintenance Manager: BIANCA NICHOLS ([id number]) [facility]) [address] [place] [address] Basophils/100 WBC (Bld) 0.6 % Normal 0.0-2.0 [facility] Comment on above: Performed By: #### L [id number] #### Auto Fleet Maintenance Manager: BIANCA NICHOLS ([phone]) [facility]) [address] [place] [address] Eosinophils (Bld) [#/Vol] 0.4 10*3/uL Normal 0.0-0.5 [facility] Comment on above: Performed By: #### L [id number] #### Auto Fleet Maintenance Manager: BIANCA NICHOLS ([id number]) [facility]) [address] [place] [address] Eosinophils/100 WBC (Bld) 4.0 % Normal 0.0-6.0 [facility] Comment on above: Performed By: #### L [id number] #### Auto Fleet Maintenance Manager: BIANCA NICHOLS ([id number]) [facility]) [address] [place] [address] Erythrocyte distribution width (RBC) [Ratio] 14.9 % Normal 11.5-15.0 [facility] Comment on above: Performed By: #### L [id number] #### Auto Fleet Maintenance Manager: BIANCA NICHOLS ([id number]) [facility]) [address] [place] [address] Hematocrit (Bld) [Volume fraction] 32.8 % Low 40.0-52.0 [facility] Comment on above: Performed By: #### L [id number] #### Auto Fleet Maintenance Manager: BIANCA NICHOLS ([id number]) [facility]) [address] [place] [address] Hemoglobin (Bld) [Mass/Vol] 10.6 g/dL Low 13.0-18.0 [facility] Comment on above: Performed By: #### L [id number] #### Auto Fleet Maintenance Manager: BIANCA NICHOLS ([id number]) [facility]) [address] [place] [address] IMMATURE GRANS % 0.4 % Normal 0.0-2.0 [facility] Comment on above: Performed By: #### L [id number] #### Auto Fleet Maintenance Manager: BIANCA NICHOLS ([id number]) [facility]) [address] [place] [address] IMMATURE GRANS ABSOLUTE 0.0 10*3/uL Normal <0.1 [facility] Comment on above: Performed By: #### L [id number] #### Auto Fleet Maintenance Manager: BIANCA NICHOLS ([phone]) [facility]) [address] [place] [address] Lymphocytes (Bld) [#/Vol] 2.2 10*3/uL Normal 1.0-4.3 [facility] Comment on above: Performed By: #### L [id number] #### Auto Fleet Maintenance Manager: BIANCA NICHOLS ([id number]) [address] Lymphocytes/100 WBC (Bld) 23.9 % Normal 15.0-45.0 [facility] Comment on above: Performed By: #### L [id number] #### Auto Fleet Maintenance Manager: BIANCA NICHOLS ([id number]) [facility]) [address] [place] [address] MCH (RBC) [Entitic mass] 28.8 pg Normal 26.0-34.0 [facility] Comment on above: Performed By: #### L [id number] #### Auto Fleet Maintenance Manager: BIANCA NICHOLS ([id number]) [address] MCHC 32.3 % Normal 30.5-36.0 [facility] Comment on above: Performed By: #### L [id number] #### Auto Fleet Maintenance Manager: BIANCA NICHOLS ([id number]) [address] MCV (RBC) [Entitic vol] 89.1 fL Normal 77.0-99.0 S [facility] Comment on above: Performed By: #### L [id number] #### Auto Fleet Maintenance Manager: BIANCA NICHOLS ([id number]) [facility] ([facility]) [address] [place] [address] [place] Monocytes (Bld) [#/Vol] 0.7 10*3/uL Normal 0.0-0.9 [facility] Comment on above: Performed By: #### L [id number] #### Auto Fleet Maintenance Manager: BIANCA NICHOLS ([id number]) [facility]) [address] [place] [address] [place] Monocytes/100 WBC (Bld) 8.0 % Normal 5.0-13.0 [facility] Comment on above: Performed By: #### L [id number] #### Auto Fleet Maintenance Manager: BIANCA NICHOLS ([id number]) [facility] ([facility]) [address] [place] [address] NEUTROPHILS ABSOLUTE 5.9 10*3/uL Normal 1.8-7.5 [facility] Comment on above: Performed By: #### L [id number] #### Auto Fleet Maintenance Manager: BIANCA NICHOLS ([id number]) [facility] ([facility]) [address] [place] [address] Neutrophils/100 WBC (Bld) 63.1 % Normal 38.0-82.0 [facility] Comment on above: Performed By: #### L [id number] #### Auto Fleet Maintenance Manager: BIANCA NICHOLS ([id number]) [facility] ([facility]) [address] [place] [address] NRBC 0.0 /100 WBCs Normal 0.0-2.0 [facility] Comment on above: Performed By: #### L [id number] #### Auto Fleet Maintenance Manager: BIANCA NICHOLS ([id number]) [facility] ([facility]) [address] [place] [address] [place] Platelet mean volume (Bld) [Entitic vol] 9.8 fL Normal 9.0-12.7 [facility] Comment on above: Performed By: #### L [id number] #### Auto Fleet Maintenance Manager: BIANCA NICHOLS ([id number]) [facility] ([facility]) [address] [place] [address] [place] Platelets (Bld) [#/Vol] 367 10*3/uL Normal 140-440 [facility] Comment on above: Performed By: #### L [id number] #### Auto Fleet Maintenance Manager: BIANCA NICHOLS ([id number]) [facility]) [address] [place] [address] RBC (Bld) [#/Vol] 3.68 10*6/uL Low 4.40-5.90 [facility] Comment on above: Performed By: #### L [id number] #### Auto Fleet Maintenance Manager: BIANCA NICHOLS ([id number]) [facility] ([facility]) [address] [place] [address] WBC (Bld) [#/Vol] 9.3 10*3/uL Normal 3.6-10.7 [facility] Comment on above: Performed By: #### L [id number] #### Auto Fleet Maintenance Manager: BIANCA NICHOLS ([id number]) [facility]) [address] [place] [address] CULTURE ANAEROBICon 04-24-20 CULTURE ANAEROBIC ANAEROBIC CULTURE Reference No growth to date. Incubation continues [ S = SUSCEPTIBLE R = RESISTANT I = INTERMEDIATE S-DD = Susceptible-dose dependent NS = Non-susceptible NO = No Interpretation ] Normal [facility] Comment on above: Performed By: #### L [id number] ####Auto Fleet Maintenance Manager: BIANCA NICHOLS ([phone])[facility])[address] [place] [address] CULTURE ANAEROBIC ANAEROBIC CULTURE (A ) Reference CLOSTRIDIUM RAMOSUM Few Clostridium ramosum (A) [ S = SUSCEPTIBLE R = RESISTANT I = INTERMEDIATE S-DD = Susceptible-dose dependent NS = Non-susceptible NO = No Interpretation ] Normal [facility] Comment on above: Performed By: #### L [id number] #### Auto Fleet Maintenance Manager: BIANCA NICHOLS ([id number]) [facility]) [address] [place] [address] CULTURE, AEROBIC BACTERIA WI TH GRAM STAINon 04-24-2025 CULTURE, AEROBIC BACTERIA WITH GRAM STAIN CULTURE (A) Reference ENTEROCOCCUS RAFFINOSUS Rare Enterococcus raffinosus (A) GRAM STAIN RESULT Reference Few Polymorphonuclear leukocytes per low power field No organisms seen Organism: ENTEROCOCCUS RAFFINOSUS Antibiotic HARINDER Interpretation Status Ampicillin 8 ug/ml S F Linezolid 2 ug/ml S F Vancomycin <=0.5 ug/ml S F [ S = SUSCEPTIBLE R = RESISTANT I = INTERMEDIATE S-DD = Susceptible-dose dependent NS = Non-susceptible NO = No Interpretation ] Normal [facility] Comment on above: Performed By: #### L [id number] #### Auto Fleet Maintenance Manager: BIANCA NICHOLS ([id number]) [facility] ([facility]) [address] [place] [address] CULTURE, AEROBIC BACTERIA WITH GRAM STAIN CULTURE Reference Rare skin gosia present ENTEROCOCCUS RAFFINOSUS Moderate Enterococcus raffinosus (A) PROTEUS MIRABILIS Rare Proteus mirabilis (A) GRAM STAIN RESULT (A) Reference (A) Many Polymorphonuclear leukocytes per low power field Many Gram positive cocci Few Gram positive bacilli Organism: ENTEROCOCCUS RAFFINOSUS Antibiotic HARINDER Interpretation Status Ampicillin 8 ug/ml S F Linezolid 2 ug/ml S F Vancomycin <=0.5 ug/ml S F Organism: PROTEUS MIRABILIS Antibiotic HARINDER Interpretation Status Amoxicillin / Clavulanate <=2 ug/ml S F Ampicillin <=2 ug/ml S F Ampicillin / Sulbactam <=2 ug/ml S F Aztreonam <=1 ug/ml S F Cefazolin 4 ug/ml I F Cefepime <=0.12 ug/ml S F Ceftriaxone <=0.25 ug/ml S F Ciprofloxacin 2 ug/ml R F Ertapenem <=0.12 ug/ml S F Gentamicin <=1 ug/ml S F Levofloxacin 1 ug/ml I F Meropenem <=0.25 ug/ml S F Piperacillin / Tazobactam <=4 ug/ml S F Trimethoprim / Sulfamethoxazole <=20 ug/ml S F [ S = SUSCEPTIBLE R = RESISTANT I = INTERMEDIATE S-DD = Susceptible-dose dependent NS = Non-susceptible NO = No Interpretation ] Normal [facility] Comment on above: Performed By: #### L [id number] #### Auto Fleet Maintenance Manager: BIANCA NICHOLS ([id number]) [facility] ([facility]) [address] [place] [address] Laboratory - Chemistry and C hemistry - challengeon 04-24-2025 Glucose [Mass/Vol] 348 mg/dL High 70 - 100 mg/dL [facility] [place] Glucose [Mass/Vol] 407 mg/dL High 70 - 100 mg/dL [facility] Glucose [Mass/Vol] 259 mg/dL High 70 - 100 mg/dL [facility] Glucose [Mass/Vol] 135 mg/dL High 70 - 100 mg/dL [facility] Glucose [Mass/Vol] 126 mg/dL High 70 - 100 mg/dL [facility] Laboratory - Drug toxicology on 04-24-2025 Vancomycin trough [Mass/Vol] 12 ug/mL [facility] [place] No Panel Informationon 04-24 Interpretation and review of laboratory results Abnormal [facility] [place] Performed by: [address] [address] CLIA ID: [id number] [facility] [place] [facility] Interpretation and review of laboratory results Abnormal [facility] Performed by: [address] [address] CLIA ID: [id number] [facility] [place] [facility] Interpretation and review of laboratory results Abnormal [facility] Performed by: [facility], [address] [place] [address] CLIA ID: [id number] [facility] [place] [facility] Interpretation and review of laboratory results Abnormal [facility] Performed by: [address] [address] CLIA ID: [id number] [facility] [place] [facility] Interpretation and review of laboratory results Abnormal [facility] Performed by: [address] [address] CLIA ID: [id number] [facility] [place] [facility] Nursing Noteon 04-24-2025 Nursing Note Patient states nobod y here to update Normal [facility] Op Noteon 04-24-2025 Op Note - Attestation signed by Kaela Durand MD at 04/26/2025 4:55 PM I attest that I was present and supervised the entire procedure. I agree with the operative details as documented in the resident's note. Excisional debridement of necrotic ischial wound, total wound measurement 7 x 4 cm = 28 cm2 [CPT 62714, 01532] Open biopsy of left ischium [CPT 58762] This note is electronically signed by: Kaela Durand MD 1:56 PM, 04/25/2025. OPERATIVE REPORT Date of Service: 04/24/2025 SURGEON: Kaela Durand MD PARTICIPATING SURGEON: Cari Ling MD and Kathrin Alcantara MD (Resident) PREOPERATIVE DIAGNOSIS: 1. Left ischial wound POSTOPERATIVE DIAGNOSIS: 1. Left ischial wound with osteomyelitis PROCEDURE PERFORMED: 1. Excisional debridement 2. Bone biopsy 3. Wet to dry dressing ESTIMATED BLOOD LOSS: 50 cc COMPLICATIONS: None. DRAINS: None FINDINGS: Ischial wound debridement with osteomyelitis HISTORY AND INDICATIONS: Please see the history and physical form, as well as the progress notes for the patient. This 64 y.o. male patient has a left ischial wound that requires debridement. DESCRIPTION OF PROCEDURE: The patient was brought to the operating room. The patient had endotracheal intubation and induction of general anesthesia without any cardiovascular compromise or event. The patient was placed prone on the operating room table. A time-out was performed identifying the correct patient, necessary equipment, and the procedure to be performed. All were in agreement in the room with Anesthesia, the surgeons, and operating room staff, and we proceeded as planned. The patient received a preoperative dose of antibiotics prior to the beginning of the procedure and will be on perioperative dosing of antibiotics. Excisional debridement of left ischial wound was carried out using bovie electrocautery with removal of necrotic and nonviable tissue down to the bone. The bone appears to be infected as well. A bone biopsy was taken and sent for culture and pathology. The wound measured 7cm x 4cm. Hemostasis was achieved with bovie electrocautery. Two pieces of [place] patch were placed in the wound bed. Betadine soak Kerlix was then packed in the wound. Dressings were applied overtop. The sponge, instrument and needle counts were correct at the end of the case. The patient was extubated and transferred to PACU in stable condition. [facility] Progress Noteon 04-24-2025 Progress Note Nutrition Assessment Type and Reason for Visit: Initial, Positive Nutrition Screen, Wound Nutrition Recommendations/Plan: Per MNT protocol will modify Adult diet Regular to include 75 g CHO controlled diet to promote euglycemia Supplement(s): added pineapple coconut rosie BID with bkfst and dinner (provides 90 kcals, 14 g AA, 2.5 grams Collagen, 300 mg Vitamin C, 9.5 mg Zinc, 1 packet per serving) per MNT protocol Will continue to monitor labs, meds, po intakes and/or enteral nutrition tolerance, skin integrity, wt trends, and overall nutrition status - RD to follow weekly Malnutrition Assessment: Malnutrition Status: At risk for malnutrition (Comment) (wound) Context: Acute Illness Findings of the 6 clinical characteristics of malnutrition: Energy Intake: Mild decrease in energy intake (Comment) (NPO for OR 04/24/25; at baseline has a very good appetite - tolerated 100% of his "brkfst" after OR today) Weight Loss: No significant weight loss (UBW per pt 190-200#, CBW 195# via bed scale) Body Fat Loss: Mild body fat loss (paraplegia, NFPA deferred as pt recently s/p OR for debridement - mild wasting visualluy observed, predicted pt at his baseline as he has gained wt since paraplegia complication in 2021 - wt was down to 135#) Orbital, Buccal region Muscle Mass Loss: Mild muscle mass loss Temples (temporalis) Fluid Accumulation: Moderate to Severe (BLE Edema: Moderate pitting, indentation subsides rapidly) Grain Spouter Strength: Not Performed Chief Complaint Patient presents with Wound Infection Per EMS pt was sent here from the [place] for wound infections. Pt has two wound on his sacrum - one at the top of sacrum and one at the bottom of the buttocks. Denies any fever/ CP/FEVER/ SOB. Pt is paralysis. Past Medical and Surgical History: Medical History[1] Surgical History[2] Nutrition Assessment: LOS# 2. +Nutrition screen for wound. +Nutrition screen for wound. 64M w/ PMHx: HLD, HTN, DMII, MDD, OA, Afib on eliquis, chronic sacral wounds, and hx of MRSA BSI c/b L2-L3 epidural abscess and R psoas abscess with resultant paraplegia and neurogenic bladder (01/2022) who presents from [facility] with c/f OM of L inferior pubic ramus. On eval the pt was HDS, afebrile. Labs sig for WBC 12.5, HGB 11.7. CMP largely unremarkable. Wound cxs: many gram negative bacilli, gram + cocci in pairs and chains and clusters, gram positive bacilli. CTAP demonstrates erosive lucency and bone in contact with air at left inferior pubic ramus and sacrum/coccyx junction. Overlying air and edema present in soft tissue along the wound. S/p OR this AM 04/24/25 for I&D of sacral wound w/ possible wound vac application. Wound c/s pending due to pt being OOR at time of visit. NPO advanced to regular diet. A1c 7.9%. BS noted. Has historically declined ONS. Labs/meds reviewed. UBW per pt 190-200#, CBW 195# via bed scale. Pt recently returned from OR. Dtr present on the unit who is an MICROBIOLOGY INSTRUCTOR at a SNF. Nurse states she ordered him bkfst and he ate all of his tray. Dtr reports pt has not previously been on ONS (hard chart does not show diet hx from facility). She states at one point he came down in weight to 135# after paraplegia incident from surgery complication and has had several health concerns following. She states the pt has a very good appetite, including protein foods, at baseline and has been able to gain weight back since 2021. Pt seen at bedside after nsg checked on him. He is alert and able to answer questions appropriately. Denies GI concerns ATT, such as N/V abd pain or mechanical difficulty w/ po. He is amenable to trial rosie. Discussed protein sources for wound haling. Estimated Daily Nutrient Needs: Energy Requirements Based On: Kcal/kg Weight Used for Energy Requirements: Adjusted (AIBW for paraplegia) Weight for Energy Calculation (kg): 82.41 kg Total Energy Requirements (kcals/day): (25-30 kcals/kg) Weight Used for Protein Requirements: Adjusted (AIBW for paraplegia) Weight in Kg Used for Protein Requirements: 82.41 kg Estimated Total Protein (g/day): 82-99 (1-1.2 g/kg) Estimated Daily Total Fluid (ml/day): 1 ml/kcal or per MD Nutrition Related Findings: Wound Type: Wound Consult Pending, Surgical Incision (Venous Ulcer to sacrum; s/p I&D 04/24/25) Isolation Status: No active isolations Food Allergies: NKFA Teeth: Partial plate upper (in cup with chart) Room Service: Selective Jack Scale Score: 14 BLE Edema: Moderate pitting, indentation subsides rapidly Gastrointestinal (WDL): Within Defined Limits Last BM Date: 04/22/25 Nutrition History: Independent of feeding and Resides at LTC facility Level of Consciousness: Alert; Orientation Level: Oriented X4 Code Status, Oxygen Needs, Vital Signs, I/Os: Code Status: Full Code Oxygen Therapy: SpO2: 93 %; Oxygen Therapy: None (Room air) Vital Signs: Temp: 36.1 ?C (97 ?F); Heart Rate: 64; Resp: 16; BP: 99/59; MAP (mmHg): (more content not included)... Normal [facility] Progress Note Patient out of room at time of visit Wound care to follow up at a later time JOE Diaz CNP [facility] Progress Note - Attestation signed by Kaela Durand MD at 04/24/2025 7:35 AM ATTENDING ADDENDUM Problem List[1] I personally supervised the resident in the evaluation and development of a treatment plan for this patient on the same day of service as above. I personally discussed the review of systems and interviewed the patient along with performing a physical examination. I reviewed the recent events, imaging, labs, vital signs. In addition, I discussed the patient's condition and treatment options with him/her when possible. I have also reviewed and agree with the past medical, family, and social history unless otherwise noted. All of the patient's questions were answered and family updated when appropriate and possible. 64M with paraplegia following a "Spine surgery for MRSA" 3 years ago presents with a sacral and ischial ulcer requiring debridement. On Eliquis for A-fib, last dose was 04/22. I evaluated the patient in the pre-op area and discussed the plan for the OR. When I mentioned that I was a surgeon he stated "it was a surgeon who paralyzed me". I explained the plan to clean up the wound and remove the tissue. He is in agreement with this. Hb 10.6, PLT [address] A/P which shows evidence of osteomyelitis of the inferior pubic ramus and sacrum. Proceed to OR for debridement of sacral & ischial wounds Level of Medical Decision Making: risk of morbidity from additional diagnostic testing or treatment due to chronic sacral wounds []High [x]Moderate []Low Complexity: Acute, complicated injury (MOD) Multiple stable chronic illnesses (MOD) Risk: Decision regarding minor surgery with identified patient or procedure risk factors (MOD) Personally Reviewed/Independentl y interpreted patient's: [x]Epic notes []Radiology studies [x]Labs []EKG []Ordering tests []Other Discussed/ With: [x]Patient/Family []RN []Consultants []SW/TCC []Other I spent total time of 35 minutes reviewing previous notes, test results, and face to face with Anmol Reynolds discussing the diagnosis and importance of compliance with the treatment plan as well as documenting on the day of the visit. Kaela Durand MD Division of Trauma Department of Surgery [facility] [1] Patient Active Problem List Diagnosis Nicotine use disorder Unspecified osteoarthritis, unspecified site Pilonidal cyst without abscess Diabetes mellitus without complication (HCC) Lumbar radiculopathy Abnormal finding on EKG Hypertension Hyperglycemia Hip sprain Other intervertebral disc displacement, lumbar region Anxiety Lumbar stenosis with neurogenic claudication Spinal stenosis of lumbar region with neurogenic claudication Herniated nucleus pulposus, L5-S1, left Septic shock (HCC) Pressure injury of coccygeal region, stage 3 ([facility]) Bladder calculus Calculus of ureter Positive blood cultures Other acute osteomyelitis, other site ([facility]) Department of General Surgery Daily Progress Note ADMIT DATE: 04/21/2025 TODAY'S DATE: 04/24/2025 HPI: Anmol Reynolds is a 64 y.o. male with significant past medical history of paraplegia s/p surgical complication with Dr. Ashley at [facility], HLD, HTN, MDD, OA, a-fib on eliquis, chronic sacral wounds who presents from his care home after he states the nurses have become more concerned about his sacral wound. Surgery was consulted for evaluation of these sacral wounds and concern for osteomyelitis of the left inferior pubic ramus. Patient states that he is feeling well overall. He reports he was brought in due to concerns for his sacral wound. Reports he is unsure if there has been increased drainage or redness but does endorse having infections requiring debridement prior to this. He is unsure why he takes Eliquis. On evaluation patient was HDS, afebrile. Labs reviewed significant for: WBC 12.5, HGB 11.7. CMP largely unremarkable. Wound cultures: many gram negative bacilli, gram + cocci in pairs and chains and clusters, gram positive bacilli. Imaging demonstrated: CT Pelvis- erosive lucency and bone in contact with air at left inferior pubic ramus and sacrum/coccyx junction. Overlying air and edema present in soft tissue along the wound. SUBJECTIVE: No acute events overnight. Patient understands plan to head to OR today for debridement of his sacral wound. Patient does not have any questions or concerns. Interval history: 04/22 Admitted and ACS consult for sacral wound, concern for osteomyelitis OBJECTIVE: VITALS: BP 112/80 (BP Location: Right arm, Patient Position: Lying) Pulse 65 Temp 36.6 ?C (97.8 ?F) (Temporal) Resp 20 Ht 6' 3" (1.905 m) Wt 195 lb 6.4 oz (88.6 kg) SpO2 95% BMI 24.42 kg/m? INTAKE/OUTPUT: Intake/Output Summary (Last 24 hours) (more content not included)... Normal [facility] VANCOMYCIN, AUC TIMED DOSING on 04-24-2025 VANCOMYCIN, AUC 12.0 ug/mL Normal [facility] Comment on above: Result Comment: [facility] COMMENTS: Please draw random level at least >2 hours after the end of the last vancomycin infusion, or 30-minutes before next infusion. Toxicity is seen at concentrations >80-100 ug/mL Therapeutic (Peak) range: 20-40 Therapeutic (Trough) range: 5-10 Performed By: #### L [id number] #### Auto Fleet Maintenance Manager: BIANCA NICHOLS ([id number]) [facility] ([facility]) [address] [place] [address] Vancomycin trough [Mass/Vol] on 04-24-2025 Toxicity is seen at concentrations >80-100 ug/mL Therapeutic (Peak) range: 20-40 Therapeutic (Trough) range: 5-10 [facility] 30on 04-23-2025 30 Problem: Pain - Adul t Goal: Verbalizes/displays adequate comfort level or baseline comfort level Outcome: Progressing Problem: Safety - Adult Goal: Free from fall injury Outcome: Progressing Problem: Chronic Conditions and Co-morbidities Goal: Patient's chronic conditions and co-morbidity symptoms are monitored and maintained or improved Outcome: Progressing Normal [facility] 30 Problem: Pain - Adul t Goal: Verbalizes/displays adequate comfort level or baseline comfort level Outcome: Progressing Problem: Safety - Adult Goal: Free from fall injury Outcome: Progressing Problem: Discharge Planning Goal: Discharge to home or other facility with appropriate resources Outcome: Progressing Problem: Chronic Conditions and Co-morbidities Goal: Patient's chronic conditions and co-morbidity symptoms are monitored and maintained or improved Outcome: Progressing Normal [facility] BASIC METABOLIC PANELon 2 Anion gap [Moles/Vol] 7 mmol/L Normal 3-13 [facility] Comment on above: Performed By: #### L [id number] #### Auto Fleet Maintenance Manager: BIANCA NICHOLS ([phone]) [facility] ([facility]) [address] [place] [address] Calcium [Mass/Vol] 8.1 mg/dL Low 8.8-10.0 [facility] Comment on above: Performed By: #### L [id number] #### Auto Fleet Maintenance Manager: BIANCA NICHOLS ([phone]) [facility] [address] [place] [address] Chloride [Moles/Vol] 105 mmol/L Normal 98-107 [facility] Comment on above: Performed By: #### L [id number] #### Auto Fleet Maintenance Manager: BIANCA NICHOLS ([id number]) [facility] [address] [place] [address] [place] CO2 [Moles/Vol] 21 mmol/L Low 23-31 [facility] Comment on above: Performed By: #### L [id number] #### Auto Fleet Maintenance Manager: BIANCA NICHOLS ([phone]) [facility]) [address] [place] [address] Creatinine [Mass/Vol] 0.54 mg/dL Low 0.72-1.25 [facility] Comment on above: Performed By: #### L [id number] #### Auto Fleet Maintenance Manager: BIANCA NICHOLS ([phone]) [facility] [address] [place] [address] GLOMERULAR FILTRATION RATE ML/MIN/1.73 SQ M.PREDICTED >90.0 Normal >60.0 [facility] Comment on above: Result Comment: Calc ulation based on the Chronic Kidney Disease Epidemiology Collaboration (CKD-EPI) equation refit without adjustment for race Performed By: #### L [id number] #### Auto Fleet Maintenance Manager: BIANCA NICHOLS ([id number]) [facility] [address] [place] [address] Glucose [Mass/Vol] 133 mg/dL High 82-115 [facility] Comment on above: Performed By: #### L [id number] #### Auto Fleet Maintenance Manager: BIANCA NICHOLS ([phone]) [facility] ([facility]) [address] [place] [address] Potassium [Moles/Vol] 3.8 mmol/L Normal 3.5-5.1 [facility] Comment on above: Result Comment: [facility] potassium values may be up to 0.5 mmol/L lower than serum values. Performed By: #### L [id number] #### Auto Fleet Maintenance Manager: BIANCA NICHOLS ([phone]) [facility] [address] [place] [address] Sodium [Moles/Vol] 133 mmol/L Low 136-145 [facility] Comment on above: Performed By: #### L [id number] #### Auto Fleet Maintenance Manager: BIANCA NICHOLS ([id number]) [facility] [address] [place] [address] Urea nitrogen [Mass/Vol] 8 mg/dL Low 9-23 [facility] Comment on above: Performed By: #### L [id number] #### Auto Fleet Maintenance Manager: BIANCA NICHOLS ([id number]) [facility] [address] [place] [address] Basic metabolic 1998 panelon 04-23-2025 Anion gap [Moles/Vol] 7 mmol/L 3 - 13 mmol/L [facility] [place] Calcium [Mass/Vol] 8.1 mg/dL Low 8.8 - 10. 0 mg/dL [facility] [place] Chloride [Moles/Vol] 105 mmol/L 98 - 10 7 mmol/L [facility] [place] CO2 [Moles/Vol] 21 mmol/L Low 23 - 31 mmol/L [facility] Creatinine [Mass/Vol] 0.54 mg/dL Low 0.72 - 1.25 mg/dL [facility] [place] GFR/1.73 sq M.predicted (S/P/Bld) [Vol rate/Area] - PINF [facility] Comment on above: Calculation based on the Chronic Kidney Disease Epidemiology Collaboration (CKD-EPI) equation refit without adjustment for race Glucose [Mass/Vol] 133 mg/dL High 82 - 115 mg/dL [facility] Interpretation and review of laboratory results Abnormal [facility] [place] Potassium [Moles/Vol] 3.8 mmol/L 3.5 - 5.1 mmol/L [facility] Comment on above: Plasma potassium leonie ues may be up to 0.5 mmol/L lower than serum values. Sodium [Moles/Vol] 133 mmol/L Low 136 - 145 mmol/L [facility] [place] Urea nitrogen [Mass/Vol] 8 mg/dL Low 9 - 23 mg/dL [facility] CBC W Auto Differential pane l (Bld)on 04-23-2025 Basophils (Bld) [#/Vol] 0.1 10*3/uL 0.0 - 0.2 10*3/uL [facility] Basophils/100 WBC (Bld) 0.5 % 0.0 - 2.0 % [facility] Eosinophils (Bld) [#/Vol] 0.3 10*3/uL 0.0 - 0.5 10*3/uL [facility] Eosinophils/100 WBC (Bld) 3.6 % 0.0 - 6.0 % [facility] [place] Erythrocyte distribution width (RBC) [Ratio] 14.9 % 11.5 - 15.0 % [facility] [place] Hematocrit (Bld) [Volume fraction] 30.7 % Low 40.0 - 52.0 % [facility] Hemoglobin (Bld) [Mass/Vol] 9.9 g/dL Low 13.0 - 18.0 g/dL [facility] [place] Immature granulocytes (Bld) [#/Vol] 0 10*3/uL NINF - 0.1 10*3/uL [facility] Immature granulocytes/100 WBC (Bld) 0.4 % 0.0 - 2.0 % [facility] Interpretation and review of laboratory results Abnormal [facility] Lymphocytes (Bld) [#/Vol] 2.2 10*3/uL 1.0 - 4.3 10*3/uL [facility] Lymphocytes/100 WBC (Bld) 23.6 % 15.0 - 45.0 % [facility] [place] MCH (RBC) [Entitic mass] 28.5 pg 26. 0 - 34.0 pg [facility] [place] MCHC (RBC) [Mass/Vol] 32.2 % 30.5 - 36.0 % [facility] [place] MCV (RBC) [Entitic vol] 88.5 fL 77.0 - 99.0 fL [facility] Monocytes (Bld) [#/Vol] 0.8 10*3/uL 0.0 - 0.9 10*3/uL [facility] Monocytes/100 WBC (Bld) 8.7 % 5.0 - 13.0 % [facility] Neutrophils (Bld) [#/Vol] 5.9 10*3/uL 1.8 - 7.5 10*3/uL [facility] Neutrophils/100 WBC (Bld) 63.2 % 38.0 - 82.0 % [facility] Nucleated RBC/100 WBC (Bld) [Ratio] 0 % [facility] Platelet mean volume (Bld) [Entitic vol] 9.7 fL 9.0 - 12.7 fL [facility] Platelets (Bld) [#/Vol] 352 10*3/uL 140 - 440 10*3/uL [facility] RBC (Bld) [#/Vol] 3.47 10*6/uL Low 4.40 - 5.9 0 10*6/uL [facility] WBC (Bld) [#/Vol] 9.4 10*3/uL 3.6 - 10.7 10*3/uL [facility] CBC WITH AUTO DIFFERENTIALon 04-23-2025 Basophils (Bld) [#/Vol] 0.1 10*3/uL Normal 0.0-0.2 [facility] Comment on above: Performed By: #### L [id number] #### Auto Fleet Maintenance Manager: BIANCA NICHOLS ([phone]) [facility]) [address] [place] [address] Basophils/100 WBC (Bld) 0.5 % Normal 0.0-2.0 [facility] Comment on above: Performed By: #### L [id number] #### Auto Fleet Maintenance Manager: BIANCA NICHOLS ([id number]) [facility] ([facility]) [address] [place] [address] [place] Eosinophils (Bld) [#/Vol] 0.3 10*3/uL Normal 0.0-0.5 [facility] Comment on above: Performed By: #### L [id number] #### Auto Fleet Maintenance Manager: BIANCA NICHOLS ([phone]) [facility] ([facility]) [address] [place] [address] [place] Eosinophils/100 WBC (Bld) 3.6 % Normal 0.0-6.0 [facility] Comment on above: Performed By: #### L [id number] #### Auto Fleet Maintenance Manager: BIANCA NICHOLS ([phone]) [facility] ([facility]) [address] [place] [address] Erythrocyte distribution width (RBC) [Ratio] 14.9 % Normal 11.5-15.0 [facility] Comment on above: Performed By: #### L [id number] #### Auto Fleet Maintenance Manager: BIANCA NICHOLS ([id number]) [facility]) [address] [place] [address] Hematocrit (Bld) [Volume fraction] 30.7 % Low 40.0-52.0 [facility] Comment on above: Performed By: #### L [id number] #### Auto Fleet Maintenance Manager: BIANCA NICHOLS ([id number]) [facility]) [address] [place] [address] Hemoglobin (Bld) [Mass/Vol] 9.9 g/dL Low 13.0-18.0 [facility] Comment on above: Performed By: #### L [id number] #### Auto Fleet Maintenance Manager: BIANCA NICHOLS ([phone]) [facility]) [address] [place] [address] IMMATURE GRANS % 0.4 % Normal 0.0-2.0 [facility] Comment on above: Performed By: #### L [id number] #### Auto Fleet Maintenance Manager: BIANCA NICHOLS ([phone]) [facility]) [address] [place] [address] IMMATURE GRANS ABSOLUTE 0.0 10*3/uL Normal <0.1 [facility] Comment on above: Performed By: #### L [id number] #### Auto Fleet Maintenance Manager: BIANCA NICHOLS ([phone]) [facility]) [address] [place] [address] [place] Lymphocytes (Bld) [#/Vol] 2.2 10*3/uL Normal 1.0-4.3 [facility] Comment on above: Performed By: #### L [id number] #### Auto Fleet Maintenance Manager: BIANCA NICHOLS ([phone]) [facility]) [address] [place] [address] Lymphocytes/100 WBC (Bld) 23.6 % Normal 15.0-45.0 [facility] Comment on above: Performed By: #### L [id number] #### Auto Fleet Maintenance Manager: BIANCA NICHOLS ([phone]) [facility] [address] [place] [address] MCH (RBC) [Entitic mass] 28.5 pg Normal 26.0-34.0 [facility] Comment on above: Performed By: #### L [id number] #### Auto Fleet Maintenance Manager: BIANCA NICHOLS ([id number]) [facility] ([facility]) [address] [place] [address] MCHC 32.2 % Normal 30.5-36.0 [facility] Comment on above: Performed By: #### L [id number] #### Auto Fleet Maintenance Manager: BIANCA NICHOLS ([phone]) [facility] ([facility]) [address] [place] [address] MCV (RBC) [Entitic vol] 88.5 fL Normal 77.0-99.0 [facility] Comment on above: Performed By: #### L [id number] #### Auto Fleet Maintenance Manager: BIANCA NICHOLS ([phone]) [facility] ([facility]) [address] [place] [address] Monocytes (Bld) [#/Vol] 0.8 10*3/uL Normal 0.0-0.9 [facility] Comment on above: Performed By: #### L [id number] #### Auto Fleet Maintenance Manager: BIANCA NICHOLS ([id number]) [facility] ([facility]) [address] [place] [address] Monocytes/100 WBC (Bld) 8.7 % Normal 5.0-13.0 [facility] Comment on above: Performed By: #### L [id number] #### Auto Fleet Maintenance Manager: BIANCA NICHOLS ([id number]) [facility] ([facility]) [address] [place] [address] NEUTROPHILS ABSOLUTE 5.9 10*3/uL Normal 1.8-7.5 [facility] Comment on above: Performed By: #### L [id number] #### Auto Fleet Maintenance Manager: BIANCA NICHOLS ([phone]) [facility] ([facility]) [address] [place] [address] Neutrophils/100 WBC (Bld) 63.2 % Normal 38.0-82.0 [facility] Comment on above: Performed By: #### L [id number] #### Auto Fleet Maintenance Manager: BIANCA NICHOLS ([id number]) [facility] ([facility]) [address] [place] [address] NRBC 0.0 /100 WBCs Normal 0.0-2.0 [facility] Comment on above: Performed By: #### L [id number] #### Auto Fleet Maintenance Manager: BIANCA NICHOLS ([id number]) [facility] ([facility]) [address] [place] [address] Platelet mean volume (Bld) [Entitic vol] 9.7 fL Normal 9.0-12.7 [facility] Comment on above: Performed By: #### L [id number] #### Auto Fleet Maintenance Manager: BIANCA NICHOLS ([id number]) [facility] ([facility]) [address] [place] [address] Platelets (Bld) [#/Vol] 352 10*3/uL Normal 140-440 [facility] Comment on above: Performed By: #### L [id number] #### Auto Fleet Maintenance Manager: BIANCA NICHOLS ([id number]) [facility] ([facility]) [address] [place] [address] RBC (Bld) [#/Vol] 3.47 10*6/uL Low 4.40-5.90 [facility] Comment on above: Performed By: #### L [id number] #### Auto Fleet Maintenance Manager: BIANCA NICHOLS ([id number]) [facility] ([facility]) [address] [place] [address] WBC (Bld) [#/Vol] 9.4 10*3/uL Normal 3.6-10.7 [facility] Comment on above: Performed By: #### L [id number] #### Auto Fleet Maintenance Manager: BIANCA NICHOLS ([id number]) [facility] ([facility]) [address] [place] [address] Laboratory - Chemistry and C hemistry - challengeon 04-23-2025 Glucose [Mass/Vol] 189 mg/dL High 70 - 100 mg/dL [facility] Glucose [Mass/Vol] 119 mg/dL High 70 - 100 mg/dL [facility] Glucose [Mass/Vol] 231 mg/dL High 70 - 100 mg/dL [facility] Glucose [Mass/Vol] 217 mg/dL High 70 - 100 mg/dL [facility] No Panel Informationon 04-23 Interpretation and review of laboratory results Abnormal [facility] Performed by: [facility], [address] [place] [address], Formerly [facility] [address] CLIA ID: [id number] [facility] Interpretation and review of laboratory results Abnormal [facility] Performed by: [facility], [address] [place] [address], [facility] [address] CLIA ID: [id number] [facility] Interpretation and review of laboratory results Abnormal [facility] Performed by: [facility], [address] [place] [address], [facility] [address] CLIA ID: [id number] [facility] Interpretation and review of laboratory results Abnormal [facility] Performed by: [facility], [address] [place] [address], [facility] [address] CLIA ID: [id number] [facility] 3004-22-2025 30 Problem: Pain - Adul t Goal: Verbalizes/displays adequate comfort level or baseline comfort level Outcome: Progressing Problem: Safety - Adult Goal: Free from fall injury Outcome: Progressing Problem: Discharge Planning Goal: Discharge to home or other facility with appropriate resources Outcome: Progressing Problem: Chronic Conditions and Co-morbidities Goal: Patient's chronic conditions and co-morbidity symptoms are monitored and maintained or improved Outcome: Progressing Normal [facility] 30 Problem: Pain - Adul t Goal: Verbalizes/displays adequate comfort level or baseline comfort level Outcome: Progressing Problem: Safety - Adult Goal: Free from fall injury Outcome: Progressing Problem: Discharge Planning Goal: Discharge to home or other facility with appropriate resources Outcome: Progressing Problem: Chronic Conditions and Co-morbidities Goal: Patient's chronic conditions and co-morbidity symptoms are monitored and maintained or improved Outcome: Progressing Normal [facility] 3604-22-2025 36 Name of Caller: Milady Contact Physician requesting Consult: Alberto Boogie AALIYAH / attending provider when ordered Dr. Georgette Bueno [phone] Patient Location (facility name, room, bed number): [facility] Room 465B Patient Diagnosis/Reason for Consult: Wound infection, on Cefepime Provider being paged: Dr. Alvarez Time page was sent: 8:29 AM Department of provider being paged: Infectious Disease Page Content: Received a call from [address] and spoke to Milady [phone] she was asked to send out a consult from Alberto Boogie AALIYAH / attending provider when ordered Dr. Georgette Bueno [phone], is requesting a consult. Information that was provided is: wound infection, on cefepime. PT in [facility] Room 465 B Message sent via Secure Chat [facility] CT PELVIS W IV CONTRASTon CT PELVIS W IV CONTRAST Patient Name: ANMOL DRISCOLL : 1960 Exam Date/Time: 04/22/2025 00:01 Procedure: CT PELVIS W IV CONTRAST Ordering Provider: CAMPOS JEFFREY Reason For Exam: sacral, right buttocks wound Gender: Male Age: 64 years Exam: CT PELVIS W IV CONTRAST Indication: Sacral and buttocks wound. The patient is paralyzed. Scan Parameters: Multiple axial CT images of the pelvis were obtained. Coronal and sagittal reconstructions were reviewed as well. ALARA protocol. Dose reduction was employed with automated exposure control. Contrast: 75 mL of Isovue-370 IV contrast; no GI contrast Comparison: None. FINDINGS: There are locules of air with edema which extends from the skin of the left buttocks to the left inferior pubic ramus. There is contact with the bone. There is erosive lucency of the posterior aspect of the inferior pubic ramus highly concerning for osteomyelitis. There is edema with a few locules of air which extend to the coccyx. Air is in contact with bone and there are erosive lucent changes of the sacrum/coccyx most concerning for acute osteomyelitis. Posterior lumbar fusion L4-L5. There are chronic changes of the left hip. A Santana catheter is present within a decompressed bladder. There is bilateral thickening concerning for cystitis. Air in the bladder lumen is likely iatrogenic. Atherosclerotic calcifications are present along the aorta and branches. The bowel gas pattern is nonspecific. There is atrophy of the paraspinous muscles, iliopsoas muscles, gluteus muscles, and hip muscles (paralysis patient). IMPRESSION: 1. Findings are highly suspicious for osteomyelitis of the left inferior pubic ramus and sacrum/coccyx junction with erosive lucency as well as bone in contact with air. Overlying locules of air and edema and wound present in the soft tissue. 2. Bladder wall thickening, consider cystitis. 3. Additional findings, as above. Report Dictated on Electronically Signed By: Geneva Lunsford MD Electronically Signed Date/Time: 04/22/2025 12:[address] [facility] CT Pelvis W contrast Poli 1. Findings are highly suspicious for osteomyelitis of the left inferior pubic ramus and sacrum/coccyx junction with erosive lucency as well as bone in contact with air. Overlying locules of air and edema and wound present in the soft tissue. 2. Bladder wall thickening, consider cystitis. 3. Additional findings, as above. Report Dictated on Electronically Signed By: Geneva Lunsford MD Electronically Signed Date/Time: 04/22/2025 12:31 AM T [facility]OLDS : 1960 [id number] Exam Date/Time: 04/22/2025 00:01 Procedure: CT PELVIS W IV CONTRAST Ordering Provider: CAMPOS JEFFREY Reason For Exam: sacral, right buttocks wound Gender: Male Age: 64 years Exam: CT PELVIS W IV CONTRAST Indication: Sacral and buttocks wound. The patient is paralyzed. Scan Parameters: Multiple axial CT images of the pelvis were obtained. Coronal and sagittal reconstructions were reviewed as well. ALARA protocol. Dose reduction was employed with automated exposure control. Contrast: 75 mL of Isovue-370 IV contrast; no GI contrast Comparison: None. FINDINGS: There are locules of air with edema which extends from the skin of the left buttocks to the left inferior pubic ramus. There is contact with the bone. There is erosive lucency of the posterior aspect of the inferior pubic ramus highly concerning for osteomyelitis. There is edema with a few locules of air which extend to the coccyx. Air is in contact with bone and there are erosive lucent changes of the sacrum/coccyx most concerning for acute osteomyelitis. Posterior lumbar fusion L4-L5. There are chronic changes of the left hip. A Santana catheter is present within a decompressed bladder. There is bilateral thickening concerning for cystitis. Air in the bladder lumen is likely iatrogenic. Atherosclerotic calcifications are present along the aorta and branches. The bowel gas pattern is nonspecific. There is atrophy of the paraspinous muscles, iliopsoas muscles, gluteus muscles, and hip muscles (paralysis patient). [facility] Geneva Lunsford MD - 04/22/2025 Patient Name: ANMOL REYNOLDS : 1960 [facility]#: [id number] Exam Date/Time: 04/22/2025 00:01 Procedure: CT PELVIS W IV CONTRAST Ordering Provider: CAMPOS JEFFREY Reason For Exam: sacral, right buttocks wound Gender: Male Age: 64 years Exam: CT PELVIS W IV CONTRAST Indication: Sacral and buttocks wound. The patient is paralyzed. Scan Parameters: Multiple axial CT images of the pelvis were obtained. Coronal and sagittal reconstructions were reviewed as well. ALARA protocol. Dose reduction was employed with automated exposure control. Contrast: 75 mL of Isovue-370 IV contrast; no GI contrast Comparison: None. FINDINGS: There are locules of air with edema which extends from the skin of the left buttocks to the left inferior pubic ramus. There is contact with the bone. There is erosive lucency of the posterior aspect of the inferior pubic ramus highly concerning for osteomyelitis. There is edema with a few locules of air which extend to the coccyx. Air is in contact with bone and there are erosive lucent changes of the sacrum/coccyx most concerning for acute osteomyelitis. Posterior lumbar fusion L4-L5. There are chronic changes of the left hip. A Santana catheter is present within a decompressed bladder. There is bilateral thickening concerning for cystitis. Air in the bladder lumen is likely iatrogenic. Atherosclerotic calcifications are present along the aorta and branches. The bowel gas pattern is nonspecific. There is atrophy of the paraspinous muscles, iliopsoas muscles, gluteus muscles, and hip muscles (paralysis patient). IMPRESSION: 1. Findings are highly suspicious for osteomyelitis of the left inferior pubic ramus and sacrum/coccyx junction with erosive lucency as well as bone in contact with air. Overlying locules of air and edema and wound present in the soft tissue. 2. Bladder wall thickening, consider cystitis. 3. Additional findings, as above. Report Dictated on Electronically Signed By: Geneva Lunsford MD Electronically Signed Date/Time: 04/22/2025 12:31 AM EDT [facility] Radiology Study observation (narrative) [facility] alth CT Pelvis W contrast IVOrder ed By: Geneva Lunsford on 04-22-2025 [facility] [place] Work Phone: Consulton 04-22-2025 Consult [facility] - Infectious Diseases Attending Consult Note Reason for Consult: 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 History of Present Illness: 64 M with h/o MRSA lumbar epidural abscess from 2021, s/p decompression and fusion, but left paraplegic with neurogenic bladder. Recent hospitlaizaitons for PNA as well as ESBL Proteus UTI/ sepsis recently at [facility]. He had a sacral decubitus ulcer for years, was already improving but worsened since most recent prolonged hospitalization once more in February 2025. Buttock ulcer developed that time as well. Patient stabilized, completed IV antibiotics, and was doing well except at F increased concern for worsening wound infection, Patient was not febrile and did not exhibit any other constitutional symptoms. ON intake, imaging done now concerning for acute Pubic rami and sacral OM communicating with decubitus ulcer. Started on broad spectrum antibiotics by IM team includingMeropenem and ID consulted. He is not in pain at the moment. Past Medical History: Medical History[1] Past Surgical History: Surgical History[2] Current Medications: Current Medications[3] Allergies: Allergies[4] Social History: Social History Socioeconomic History Marital status: Spouse name: Not on file Number of children: Not on file Years of education: Not on file Highest education level: Not on file Occupational History Not on file Tobacco Use Smoking status: Every Day Current packs/day: 0.25 Average packs/day: 0.5 packs/day for 44.5 years (21.4 ttl pk-yrs) Types: Cigarettes Start date: 1977 Smokeless tobacco: Never Vaping Use Vaping status: Every Day Substances: Nicotine, Flavoring Substance and Sexual Activity Alcohol use: No Drug use: No Sexual activity: Not on file Other Topics Concern Not on file Social History Narrative Not on file Social Drivers of Health Financial Resource Strain: Low Risk (04/24/2023) Received from [facility] Overall Financial Resource Strain (CARDIA) Difficulty of Paying Living Expenses: Not hard at all Food Insecurity: No Food Insecurity (04/22/2025) Hunger Vital Sign Worried About Running Out of Food in the Last Year: Never true Ran Out of Food in the Last Year: Never true Transportation Needs: Unmet Transportation Needs (04/22/2025) PRAPARE - Transportation Lack of Transportation (Medical): Yes Lack of Transportation (Non-Medical): Yes Physical Activity: Not on file Stress: Not on file Social Connections: Not on file Intimate Partner Violence: Not At Risk (04/22/2025) Humiliation, Afraid, Rape, and Kick questionnaire Fear of Current or Ex-Partner: No Emotionally Abused: No Physically Abused: No Sexually Abused: No Housing Stability: Low Risk (04/22/2025) Housing Stability Vital Sign Unable to Pay for Housing in the Last Year: No Number of Times Moved in the Last Year: 0 Homeless in the Last Year: No Family History: Family History[5] Review of Systems: Review of Systems Constitutional: Positive for chills. Negative for fatigue and fever. Respiratory: Negative. Genitourinary: Positive for difficulty urinating (santana in place, stents removed last month by ). Musculoskeletal: Positive for back pain. Skin: Positive for wound (per HPI). Neurological: Positive for weakness (paraplegia since 2021). Psychiatric/Behaviora l: Negative. Vitals: Patient Vitals for the past 24 hrs: BP Temp Temp src Pulse Resp SpO2 Height Weight 04/22/25 0824 98/58 36.9 ?C (98.5 ?F) Temporal 71 -- 94 % -- -- 04/22/25 0300 -- -- -- -- -- -- 1.905 m (6' 3") 88.6 kg (195 lb 6.4 oz) 04/22/25 0230 108/65 36.4 ?C (97.5 ?F) Temporal 73 16 97 % -- -- 04/21/25 2228 113/62 36.7 ?C (98.1 ?F) Oral 82 16 95 % 1.905 m (6' 3") 90.7 kg (200 lb) Physical Exam: Physical Exam Vitals reviewed. Constitutional: General: He is not in acute distress. Appearance: Normal appearance. He is ill-appearing. He is not toxic-appearing. Eyes: General: No scleral icterus. Extraocular Movements: Extraocular movements intact. Cardiovascular: Rate and Rhythm: Normal rate and regular rhythm. Pulses: Normal pulses. Heart sounds: Normal heart sounds. No murmur heard. Pulmonary: Effort: Pulmonary effort is normal. No respiratory distress. Breath sounds: Normal breath sounds. Abdominal: General: There is no distension. Palpations: Abdomen is soft. Tenderness: There is no abdominal tenderness. Genitourinary: Penis: Normal. Testes: Normal. Comments: Santana with clear UOP Musculoskeletal: General: Signs of injury (decub ulcer not exmined directly, photos reviewed on chart instead) present. Cervical back: Neck supple. Skin: General: Skin is warm. Coloration: Skin is not jaundiced. Findings: No erythema or rash. Neurological: Mental Status: He is alert. Motor: Weakness (paraplegic, atrophy to (more content not included)... Normal [facility] Consult - Attestation signed by Meliton Carrero MD at 04/22/2025 1:49 PM (Updated) ATTENDING ADDENDUM Active Diagnoses/Problems this Admission: Problem List[1] I personally supervised the resident physician in the evaluation and development of a treatment plan for this patient on the same day of service as above. I personally discussed the review of systems and interviewed the patient along with performing a physical examination. I reviewed the recent events, imaging, labs, vital signs. In addition, I discussed the patient's condition and treatment options with him/her when possible. I have also reviewed and agree with the past medical, family, and social history unless otherwise noted. All of the patient's questions were answered and family updated when appropriate and possible. A complete review of systems was obtained and is negative except as stated in HPI and/or Subjective Section. CHIEF COMPLAINT: draining sacral wound PLAN: - as per Dr. Ling's note - I evaluated pt on 04/22/25 - 64M w/ PMH as below, presents for evaluation of chronic sacral wound - pt is non-toxic appearing, afebrile, VSS, chronic appearing stage 4 L gluteal ulcer with purulent drainage - CT imaging concerning for underlying osteomyelitis of left inferior pubic ramus with erosive lucency and overlying locules of air - of note, pt actively taking eliquis - will plan for debridement in OR 04/23 - hold eliquis - optimize blood glucose - abx and further management per primary Level of Medical Decision Making: []High [x]Moderate []Low Complexity: Acute illness with systemic symptoms (MOD) Risk: Prescription drug/IVF/colloid was initiated, discontinued, adjusted; or reviewed with decision to maintain current orders (MOD). Personally Reviewed/Independentl y interpreted patient's: [x]Epic notes [x]Radiology studies [x]Labs []EKG []Ordering tests []Other Discussed/ With: [x]Patient/Family [x]RN []Consultants [x]Primary []SW/TCC []Other I spent total time of 60 minutes reviewing previous notes, test results, and face to face with Anmol Reynolds discussing the diagnosis and importance of compliance with the treatment plan as well as documenting on the day of the visit. Time was spent, Reviewing medical record including recent tests and results Ordering prescription medications/tests and procedures Communicating results to the patient/family/caregi crystal Counseling/educating the patient/family/caregi crystal Documenting clinical information the patient's electronic record Coordination of care for the patient Performing a medical appropriate exam and evaluation Meliton Carrero MD, FACS Trauma, Surgical Critical Care & Acute Care Surgery Division of Trauma Department of Surgery [facility] [1] Patient Active Problem List Diagnosis Nicotine use disorder Unspecified osteoarthritis, unspecified site Pilonidal cyst without abscess Diabetes mellitus without complication (HCC) Lumbar radiculopathy Abnormal finding on EKG Hypertension Hyperglycemia Hip sprain Other intervertebral disc displacement, lumbar region Anxiety Lumbar stenosis with neurogenic claudication Spinal stenosis of lumbar region with neurogenic claudication Herniated nucleus pulposus, L5-S1, left Septic shock (HCC) Pressure injury of coccygeal region, stage 3 (HCC) Bladder calculus Calculus of ureter Positive blood cultures Other acute osteomyelitis, other site (HCC) Department of General Surgery Surgical Service - [facility] Resident Consult Note 04/22/2025 CHIEF COMPLAINT: Chief Complaint Patient presents with Wound Infection Per EMS pt was sent here from the [place] for wound infections. Pt has two wound on his sacrum - one at the top of sacrum and one at the bottom of the buttocks. Denies any fever/ CP/FEVER/ SOB. Pt is paralysis. Reason for Consult: osteomyleitis of left inferior pubic ramus with sacral wounds" HISTORY OF PRESENT ILLNESS: Anmol Reynolds is a 64 y.o. male with significant past medical history of paraplegia s/p surgical complication with Dr. Ashley at [facility], HLD, HTN, MDD, OA, a-fib on eliquis, chronic sacral wounds who presents from his care home after he states the nurses have become more concerned about his sacral wound. Surgery was consulted for evaluation of these sacral wounds and concern for osteomyelitis of the left inferior pubic ramus. Patient states that he is feeling well overall. He reports he was brought in due to concerns for his sacral wound. Reports he is unsure if there has been increased drainage or redness but does endorse having infections requiring debridement prior to this. He is unsure why he takes Eliquis. On evaluation patient was HDS, afebrile. Labs reviewed signific (more content not included)... [facility] Consult Pharmacy Managed Vancomycin Dosing Service Consult Note Consult Date: 04/22/25 Patient Name: Anmol Reynolds Allergies: Patient has no known allergies. Age: 64 y.o. Sex: male Estimated body mass index is 25 kg/m? as calculated from the following: Height as of this encounter: 1.905 m (6' 3"). Weight as of this encounter: 90.7 kg (200 lb). DW: 90.7 kg Lab Results Component Value Date CREATININE 0.65 (L) 04/21/2025 CREATININE 0.54 (L) 05/22/2024 BUN 10 04/21/2025 BUN 13 05/22/2024 WBC 12.5 (H) 04/21/2025 WBC 6.4 05/22/2024 Calculated CrCl: 125 mL/min (Cockcroft-Gault) Consulted By: Alberto Boogie NP Infectious Diagnosis: SSTI (AUC Goal 400-600 mg/L*hr) Random Vancomycin Level Due: 04/22/25 Antimicrobials: Patient recently received an antibiotic (last 12 hours) Date/Time Action Medication Dose Rate 04/22/25 0027 New Bag vancomycin IVPB 1500 mg in 250 mL NS (premix) 1,500 mg 125 mL/hr 04/21/25 2308 New Bag cefepime (Maxipime) 2,000 mg in sodium chloride 0.9 % 50 mL IVPB Mini-Bag Plus 2,000 mg 100 mL/hr Assessment/Plan: Doses, serum creatinine, and vancomycin levels interfaced automatically to [employer] and data has been analyzed and interpreted. Start Vancomycin 1500 mg every 12 hours based on patient age, weight, renal function, and infectious diagnosis (16.5 mg/kg). Predicted AUC = 499 mg/L*hr (goal 400-600 mg/L*hr) PAUC = 76% (probability that AUC is >400 mg/L*hr) Pconc = 8% (probability that Ctrough is above 20 mcg/mL (toxicity)) Will assess random level on 04/22/25 and adjust as appropriate. Trend serum creatinine. Orders placed. Thank you for this consult. Please secure text or call with questions. DATE: 04/22/25 TIME: 2:39 AM Nina Workman [facility] Clinical Pharmacist Available via Secure Chat Normal [facility] Laboratory - Chemistry and C hemistry - challengeon 04-22-2025 Glucose [Mass/Vol] 157 mg/dL High 70 - 100 mg/dL [facility] Glucose [Mass/Vol] 250 mg/dL High 70 - 100 mg/dL [facility] Glucose [Mass/Vol] 356 mg/dL High 70 - 100 mg/dL [facility] Glucose [Mass/Vol] 277 mg/dL High 70 - 100 mg/dL [facility] Average glucose Estimated from glycated hemoglobin (Bld) [Mass/Vol] 180 mg/dL [facility] - Drug toxicology on 04-22-2025 Vancomycin trough [Mass/Vol] 12.4 ug/mL [facility] - Hematology and Cell countson 04-22-2025 HbA1c (Bld) [Mass fraction] 7.9 % High NINF [facility] Comment on above: Normal less than 5.7 % Prediabetes 5.7% to 6.4% Diabetes 6.5% or higher --HgbA1C levels may not be accurate in patients who have renal disease, received recent blood transfusions, are anemic, or who have dyshemoglobinemia. No Panel Informationon 04-22 Interpretation and review of laboratory results Abnormal [facility] Performed by: [place] [address] CLIA ID: [id number] [facility] Interpretation and review of laboratory results Abnormal [facility] Performed by: [address] [address] CLIA ID: [id number] [facility] Interpretation and review of laboratory results Abnormal [facility] Performed by: [address] [address] CLIA ID: [id number] [facility] [place] [facility] Interpretation and review of laboratory results Abnormal [facility] Performed by: [address] [address] CLIA ID: [id number] [facility] Interpretation and review of laboratory results Abnormal [facility] HbA1c values of 5.7-6.4 percent indicate an increased risk for developing diabetes mellitus. HbA1c values greater than or equal to 6.5 percent are diagnostic of diabetes mellitus. For diagnosis of diabetes in individuals without unequivocal hyperglycemia, results should be confirmed by repeat testing. [facility] [place] VANCOMYCIN, AUC TIMED DOSING on 04-22-2025 VANCOMYCIN, AUC 12.4 ug/mL Normal [facility] Comment on above: Result Comment: [facility] COMMENTS: Please draw random level at least >2 hours after the end of the last vancomycin infusion, or 30-minutes before next infusion. Toxicity is seen at concentrations >80-100 ug/mL Therapeutic (Peak) range: 20-40 Therapeutic (Trough) range: 5-10 Performed By: #### L [id number] #### Auto Fleet Maintenance Manager: BIANCA NICHOLS ([id number]) [facility] ([facility] [address] [place] [address] Vancomycin trough [Mass/Vol] on 04-22-2025 Toxicity is seen at concentrations >80-100 ug/mL Therapeutic (Peak) range: 20-40 Therapeutic (Trough) range: 5-10 [facility] Wound Cultureon 04-22-2025 WC L BUTTOCKS Wound Culture Copy of report sent to Infection Control Printer [id number] 04/20/25 0714 [facility]. Meth. resistant Staph. aureus Amount Growth 3+ mecA Testing not performed MORMOM Amount Growth 3+ Morganella morganii sp morgani Amount Growth 3+ Enterococcus faecalis Proteus mirabilis EAVI Meth. resistant Staph. aureus: REACTION Enterococcus faecalis Doxycycline Islt HARINDER <=0.5 Clindamycin Islt HARINDER R Enterococcus avium Erythromycin Islt HARINDER Gentamicin Islt HARINDER <=0.5 S Linezolid Islt HARINDER 2 S Moxifloxacin Islt HARINDER 4 I Oxacillin Susc Islt >=4 R Tetracycline Islt HARINDER <=1 S TMP SMX Islt HARINDER <=10 S Vancomycin Islt HARINDER 1 S Morganella morganii sp morgani: REACTION Ampicillin Islt HARINDER >=32 R Ampicillin+Sulbac Islt HARINDER >=32 R Ciprofloxacin Islt HARINDER >=4 R Gentamicin Islt HARINDER >=16 R levoFLOXacin Islt HARINDER 4 Meropenem Islt HARINDER <=0.25 S Pip+Tazo Islt HARINDER <=4 S TMP SMX Islt HARINDER >=320 R Morganella morganii sp morgani: REACTION Amikacin Islt HARINDER 2 S Tobramycin Islt HARINDER <=1 S Proteus mirabilis: REACTION Ampicillin Islt HARINDER <=2 S Ampicillin+Sulbac Islt HARIDNER <=2 Cefepime Islt HARINDER <=0.12 S cefTRIAXone Islt HARINDER <=0.25 S Ciprofloxacin Islt HARINDER >=4 Gentamicin Islt HARINDER <=1 S levoFLOXacin Islt HARINDER 4 R Meropenem Islt HARINDER <=0.25 S Pip+Tazo Islt HARINDER <=4 S TMP SMX Islt HARINDER >=320 R Enterococcus faecalis: REACTION Ampicillin Islt HARINDER <=2 S Gentamicin Synergy Susc Islt SYN-R R Linezolid Islt HARINDER 2 S Streptomycin High Pot Susc Islt SYN-S S Vancomycin Islt HARINDER 1 Enterococcus avium: REACTION Ampicillin Islt HARINDER <=2 S Gentamicin Synergy Susc Islt SYN-S S Linezolid Islt HARINDER 2 S Streptomycin High Pot Susc Islt SYN-S S Vancomycin Islt HARINDER <=0.5 Normal [facility] Comment on above: Performed By: #### L [id number], L101.9900, L100.0500 #### [facility] [address] [place] [address], [address] BLOOD CULTUREon 04-21-2025 Bacteria identified Cx Nom (Bld) BLOOD CULTURE Reference No growth at 5 days ORDER COMMENTS: Blood Collection Site: Left PICC Purple Lumen [ S = SUSCEPTIBLE R = RESISTANT I = INTERMEDIATE S-DD = Susceptible-dose dependent NS = Non-susceptible NO = No Interpretation ] Normal [facility] Comment on above: Performed By: #### L [id number] #### Auto Fleet Maintenance Manager: BIANCA NICHOLS ([id number]) [facility] ([address] Bacteria identified Cx Nom (Bld) BLOOD CULTURE Reference No growth at 5 days ORDER COMMENTS: Blood Collection Site: Right Forearm [ S = SUSCEPTIBLE R = RESISTANT I = INTERMEDIATE S-DD = Susceptible-dose dependent NS = Non-susceptible NO = No Interpretation ] Normal [facility] Comment on above: Performed By: #### L [id number] #### Auto Fleet Maintenance Manager: BIANCA NICHOLS ([id number]) [facility] ([facility]) [address] CBC W Auto Differential pane l (Bld)on 04-21-2025 Basophils (Bld) [#/Vol] 0.1 10*3/uL 0.0 - 0.2 10*3/uL [facility] Basophils/100 WBC (Bld) 0.6 % 0.0 - 2.0 % [facility] Eosinophils (Bld) [#/Vol] 0.3 10*3/uL 0.0 - 0.5 10*3/uL [facility] Eosinophils/100 WBC (Bld) 2.3 % 0.0 - 6.0 % [facility] Erythrocyte distribution width (RBC) [Ratio] 14.9 % 11.5 - 15.0 % [facility] Hematocrit (Bld) [Volume fraction] 35.6 % Low 40.0 - 52.0 % [facility] Hemoglobin (Bld) [Mass/Vol] 11.7 g/dL Low 13.0 - 18.0 g/dL [facility] Immature granulocytes (Bld) [#/Vol] 0.1 10*3/uL High NINF - 0.1 10*3/uL [facility] Immature granulocytes/100 WBC (Bld) 0.5 % 0.0 - 2.0 % [facility] Interpretation and review of laboratory results Abnormal [facility] Lymphocytes (Bld) [#/Vol] 2.3 10*3/uL 1.0 - 4.3 10*3/uL [facility] Lymphocytes/100 WBC (Bld) 18.1 % 15.0 - 45.0 % [facility] MCH (RBC) [Entitic mass] 29 pg 26. 0 - 34.0 pg [facility] MCHC (RBC) [Mass/Vol] 32.9 % 30.5 - 36.0 % [facility] MCV (RBC) [Entitic vol] 88.3 fL 77.0 - 99.0 fL [facility] Monocytes (Bld) [#/Vol] 1 10*3/uL High 0.0 - 0.9 10*3/uL [facility] Monocytes/100 WBC (Bld) 7.8 % 5.0 - 13.0 % [facility] Neutrophils (Bld) [#/Vol] 8.8 10*3/uL High 1.8 - 7.5 10*3/uL [facility] Neutrophils/100 WBC (Bld) 70.7 % 38.0 - 82.0 % [facility] Nucleated RBC/100 WBC (Bld) [Ratio] 0 % [facility] Platelet mean volume (Bld) [Entitic vol] 9.8 fL 9.0 - 12.7 fL [facility] Platelets (Bld) [#/Vol] 372 10*3/uL 140 - 440 10*3/uL [facility] RBC (Bld) [#/Vol] 4.03 10*6/uL Low 4.40 - 5.9 0 10*6/uL [facility] WBC (Bld) [#/Vol] 12.5 10*3/uL High 3.6 - 10.7 10*3/uL [facility] CBC WITH AUTO DIFFERENTIALon 04-21-2025 Basophils (Bld) [#/Vol] 0.1 10*3/uL Normal 0.0-0.2 [facility] Comment on above: Performed By: #### L [id number] #### Auto Fleet Maintenance Manager: BIANCA NICHOLS ([id number]) [facility] ([facility]) [address] [place] [address] [place] Basophils/100 WBC (Bld) 0.6 % Normal 0.0-2.0 S [facility] Comment on above: Performed By: #### L [id number] #### Auto Fleet Maintenance Manager: BIANCA NICHOLS ([id number]) [facility] ([facility]) [address] [place] [address] [place] Eosinophils (Bld) [#/Vol] 0.3 10*3/uL Normal 0.0-0.5 [facility] Comment on above: Performed By: #### L [id number] #### Auto Fleet Maintenance Manager: BIANCA NICHOLS ([id number]) [facility] ([facility]) [address] [place] [address] [place] Eosinophils/100 WBC (Bld) 2.3 % Normal 0.0-6.0 [facility] Comment on above: Performed By: #### L [id number] #### Auto Fleet Maintenance Manager: BIANCA [id number]) [facility] ([address] Erythrocyte distribution width (RBC) [Ratio] 14.9 % Normal 11.5-15.0 [facility] Comment on above: Performed By: #### L [id number] #### Auto Fleet Maintenance Manager: BIANCA NICHOLS ([id number]) [facility]) [address] [place] [address] Hematocrit (Bld) [Volume fraction] 35.6 % Low 40.0-52.0 [facility] Comment on above: Performed By: #### L [id number] #### Auto Fleet Maintenance Manager: BIANCA NICHOLS ([id number]) [facility]) [address] [place] [address] Hemoglobin (Bld) [Mass/Vol] 11.7 g/dL Low 13.0-18.0 [facility] Comment on above: Performed By: #### L [id number] #### Auto Fleet Maintenance Manager: BIANCA NICHOLS ([id number]) [facility]) [address] [place] [address] IMMATURE GRANS % 0.5 % Normal 0.0-2.0 [facility] Comment on above: Performed By: #### L [id number] #### Auto Fleet Maintenance Manager: BIANCA NICHOLS ([id number]) [facility]) [address] [place] [address] IMMATURE GRANS ABSOLUTE 0.1 10*3/uL High <0.1 [facility] Comment on above: Performed By: #### L [id number] #### Auto Fleet Maintenance Manager: BIANCA NICHOLS ([id number]) [facility]) [address] [place] [address] Lymphocytes (Bld) [#/Vol] 2.3 10*3/uL Normal 1.0-4.3 [facility] Comment on above: Performed By: #### L [id number] #### Auto Fleet Maintenance Manager: BIANCA NICHOLS ([id number]) [facility]) [address] [place] [address] Lymphocytes/100 WBC (Bld) 18.1 % Normal 15.0-45.0 [facility] Comment on above: Performed By: #### L [id number] #### Auto Fleet Maintenance Manager: BIANCA NICHLOS ([id number]) [facility] ([facility]) [address] [place] [address] MCH (RBC) [Entitic mass] 29.0 pg Normal 26.0-34.0 [facility] Comment on above: Performed By: #### L [id number] #### Auto Fleet Maintenance Manager: BIANCA NICHOLS ([id number]) [facility] ([facility]) [address] [place] [address] MCHC 32.9 % Normal 30.5-36.0 [facility] Comment on above: Performed By: #### L [id number] #### Auto Fleet Maintenance Manager: BIANCA NICHOLS ([id number]) [facility] ([facility]) [address] [place] [address] MCV (RBC) [Entitic vol] 88.3 fL Normal 77.0-99.0 [facility] Comment on above: Performed By: #### L [id number] #### Auto Fleet Maintenance Manager: BIANCA NICHOLS ([id number]) [facility] ([facility]) [address] [place] [address] Monocytes (Bld) [#/Vol] 1.0 10*3/uL High 0.0-0.9 [facility] Comment on above: Performed By: #### L [id number] #### Auto Fleet Maintenance Manager: BIANCA NICHOLS ([id number]) [facility] ([facility]) [address] [place] [address] Monocytes/100 WBC (Bld) 7.8 % Normal 5.0-13.0 S [facility] Comment on above: Performed By: #### L [id number] #### Auto Fleet Maintenance Manager: BIANCA NICHOLS ([phone]) [facility] ([facility]) [address] [place] [address] NEUTROPHILS ABSOLUTE 8.8 10*3/uL High 1.8-7.5 [facility] Comment on above: Performed By: #### L [id number] #### Auto Fleet Maintenance Manager: BIANCA NICHOLS ([phone]) [facility] [address] [place] [address] Neutrophils/100 WBC (Bld) 70.7 % Normal 38.0-82.0 [facility] Comment on above: Performed By: #### L [id number] #### Auto Fleet Maintenance Manager: BIANCA NICHOLS ([phone]) [facility] [address] [place] [address] NRBC 0.0 /100 WBCs Normal 0.0-2.0 [facility] Comment on above: Performed By: #### L [id number] #### Auto Fleet Maintenance Manager: BIANCA NICHOLS ([phone]) [facility] ([facility]) [address] [place] [address] Platelet mean volume (Bld) [Entitic vol] 9.8 fL Normal 9.0-12.7 [facility] Comment on above: Performed By: #### L [id number] #### Auto Fleet Maintenance Manager: BIANCA NICHOLS ([phone]) [facility] [address] [place] [address] Platelets (Bld) [#/Vol] 372 10*3/uL Normal 140-440 [facility] Comment on above: Performed By: #### L [id number] #### Auto Fleet Maintenance Manager: BIANCA NICHOLS ([phone]) [facility] [address] [place] [address] RBC (Bld) [#/Vol] 4.03 10*6/uL Low 4.40-5.90 [facility] Comment on above: Performed By: #### L [id number] #### Auto Fleet Maintenance Manager: BIANCA NICHOLS ([phone]) [facility] ([facility]) [address] [place] [address] [place] WBC (Bld) [#/Vol] 12.5 10*3/uL High 3.6-10.7 [facility] Comment on above: Performed By: #### L [id number] #### Auto Fleet Maintenance Manager: BIANCA NICHOLS ([phone]) [facility]) [address] [place] [address] COMPREHENSIVE METABOLIC PANE Antonio 04-21-2025 Albumin [Mass/Vol] 2.3 g/dL Low 3.4-4.8 [facility] Comment on above: Performed By: #### L [id number] #### Auto Fleet Maintenance Manager: BIANCA NICHOLS ([phone]) [facility] ([facility]) [address] [place] [address] ALP [Catalytic activity/Vol] 116 U/L Normal 40-150 [facility] Comment on above: Performed By: #### L [id number] #### Auto Fleet Maintenance Manager: BIANCA NICHOLS ([phone]) [facility] ([facility]) [address] [place] [address] ALT [Catalytic activity/Vol] 6 U/L Normal <40 [facility] Comment on above: Performed By: #### L [id number] #### Auto Fleet Maintenance Manager: BIANCA NICHOLS ([phone]) [facility] ([facility]) [address] [place] [address] Anion gap [Moles/Vol] 10 mmol/L Normal 3-13 [facility] Comment on above: Performed By: #### L [id number] #### Auto Fleet Maintenance Manager: BIANCA NICHOLS ([phone]) [facility] ([facility]) [address] [place] [address] AST [Catalytic activity/Vol] 13 U/L Normal <34 [facility] Comment on above: Performed By: #### L [id number] #### Auto Fleet Maintenance Manager: BAINCA NICHOLS ([id number]) [facility] ([facility]) [address] [place] [address] [place] Bilirubin [Mass/Vol] 0.5 mg/dL Normal <1.2 [facility] Comment on above: Performed By: #### L [id number] #### Auto Fleet Maintenance Manager: BIANCA NICHOLS ([phone]) [facility] ([facility]) [address] [place] [address] Calcium [Mass/Vol] 8.5 mg/dL Low 8.8-10.0 [facility] Comment on above: Performed By: #### L [id number] #### Auto Fleet Maintenance Manager: BIANCA NICHOLS ([id number]) [facility] ([facility]) [address] [place] [address] Chloride [Moles/Vol] 99 mmol/L Normal 98-107 [facility] Comment on above: Performed By: #### L [id number] #### Auto Fleet Maintenance Manager: BIANCA NICHOLS ([id number]) [facility] ([facility]) [address] [place] [address] CO2 [Moles/Vol] 21 mmol/L Low 23-31 [facility] Comment on above: Performed By: #### L [id number] #### Auto Fleet Maintenance Manager: BIANCA NICHOLS ([phone]) [facility] ([facility]) [address] [place] [address] Creatinine [Mass/Vol] 0.65 mg/dL Low 0.72-1.25 [facility] Comment on above: Performed By: #### L [id number] #### Auto Fleet Maintenance Manager: BIANCA NICHOLS ([id number]) [facility]) [address] [place] [address] GLOMERULAR FILTRATION RATE ML/MIN/1.73 SQ M.PREDICTED >90.0 Normal >60.0 [facility] Comment on above: Result Comment: Calc ulation based on the Chronic Kidney Disease Epidemiology Collaboration (CKD-EPI) equation refit without adjustment for race Performed By: #### L [id number] #### Auto Fleet Maintenance Manager: BIANCA NICHOLS ([id number]) [facility]) [address] [place] [address] Glucose [Mass/Vol] 202 mg/dL High 82-115 [facility] Comment on above: Performed By: #### L [id number] #### Auto Fleet Maintenance Manager: BIANCA NICHOLS ([id number]) [facility] ([facility]) [address] [place] [address] Potassium [Moles/Vol] 4.3 mmol/L Normal 3.5-5.1 [facility] Comment on above: Result Comment: [facility] potassium values may be up to 0.5 mmol/L lower than serum values. Performed By: #### L [id number] #### Auto Fleet Maintenance Manager: BIANCA NICHOLS ([phone]) [facility]) [address] [place] [address] Protein [Mass/Vol] 7.6 g/dL Normal 6.4-8.3 [facility] Comment on above: Performed By: #### L [id number] #### Auto Fleet Maintenance Manager: BIANCA NICHOLS ([phone]) [facility]) [address] [place] [address] Sodium [Moles/Vol] 130 mmol/L Low 136-145 [facility] Comment on above: Performed By: #### L [id number] #### Auto Fleet Maintenance Manager: BIANCA NICHOLS ([phone]) [facility]) [address] [place] [address] Urea nitrogen [Mass/Vol] 10 mg/dL Normal 9-23 [facility] Comment on above: Performed By: #### L [id number] #### Auto Fleet Maintenance Manager: BIANCA NICHOLS ([phone]) [facility]) [address] [place] [address] CULTURE ANAEROBICon 04-21-20 25 CULTURE ANAEROBIC ANAEROBIC CULTURE (A ) Reference ANAEROBIC GRAM NEGATIVE BACILLI, NOT B. FRAGILIS Moderate Anaerobic Gram-negative bacilli, not B. fragilis (A) [ S = SUSCEPTIBLE R = RESISTANT I = INTERMEDIATE S-DD = Susceptible-dose dependent NS = Non-susceptible NO = No Interpretation ] Normal [facility] Comment on above: Performed By: #### L [id number] #### Auto Fleet Maintenance Manager: BIANCA NICHOLS ([phone]) [address] CULTURE, AEROBIC BACTERIA WI TH GRAM STAINon 04-21-2025 CULTURE, AEROBIC BACTERIA WITH GRAM STAIN CULTURE Reference Moderate enteric gosia present STAPHYLOCOCCUS AUREUS Moderate Staphylococcus aureus (A) Methicillin-resistant Staphylococcus aureus (MRSA) PBP2A Reference Positive GRAM STAIN RESULT (A) Reference (A) Many Polymorphonuclear leukocytes per low power field Many Gram negative bacilli Many Gram positive cocci in pairs and chains Few Gram positive cocci in clusters Few Gram positive bacilli Organism: STAPHYLOCOCCUS AUREUS Antibiotic HARINDER Interpretation Status Clindamycin R F Daptomycin 0.25 ug/ml S F Doxycycline <=0.5 ug/ml S F Gentamicin <=0.5 ug/ml S F Linezolid 2 ug/ml S F Oxacillin >=4 ug/ml R F Trimethoprim / Sulfamethoxazole <=10 ug/ml S F Vancomycin 1 ug/ml S F [ S = SUSCEPTIBLE R = RESISTANT I = INTERMEDIATE S-DD = Susceptible-dose dependent NS = Non-susceptible NO = No Interpretation ] Normal [facility] Comment on above: Performed By: #### L [id number] #### Auto Fleet Maintenance Manager: BIANCA NICHOLS ([phone]) [facility] ([facility]) [address] [place] [address] Comprehensive metabolic 1998 panelon 04-21-2025 Albumin [Mass/Vol] 2.3 g/dL Low 3.4 - 4.8 g/dL [facility] ALP [Catalytic activity/Vol] 116 U/L 40 - 150 U/L [facility] ALT [Catalytic activity/Vol] 6 U/L NINF - 40 U/L [facility] Anion gap [Moles/Vol] 10 mmol/L 3 - 13 mmol/L [facility] AST [Catalytic activity/Vol] 13 U/L NINF - 34 U/L [facility] Bilirubin [Mass/Vol] 0.5 mg/dL NINF - 1.2 mg/dL [facility] Calcium [Mass/Vol] 8.5 mg/dL Low 8.8 - 10. 0 mg/dL [facility] Chloride [Moles/Vol] 99 mmol/L 98 - 10 7 mmol/L [facility] CO2 [Moles/Vol] 21 mmol/L Low 23 - 31 mmol/L [facility] Creatinine [Mass/Vol] 0.65 mg/dL Low 0.72 - 1.25 mg/dL [facility] GFR/1.73 sq M.predicted (S/P/Bld) [Vol rate/Area] - PINF [facility] Comment on above: Calculation based on the Chronic Kidney Disease Epidemiology Collaboration (CKD-EPI) equation refit without adjustment for race Glucose [Mass/Vol] 202 mg/dL High 82 - 115 mg/dL [facility] Interpretation and review of laboratory results Abnormal [facility] Potassium [Moles/Vol] 4.3 mmol/L 3.5 - 5.1 mmol/L [facility] Comment on above: Plasma potassium leonie ues may be up to 0.5 mmol/L lower than serum values. Protein [Mass/Vol] 7.6 g/dL 6.4 - 8.3 g/dL [facility] Sodium [Moles/Vol] 130 mmol/L Low 136 - 145 mmol/L [facility] Urea nitrogen [Mass/Vol] 10 mg/dL 9 - 23 mg/dL [facility] ED Nursing Noteon 04-21-2025 ED Nursing Note Placed new meplix pads on open wounds on sacrum. Pictures updated in pt's chart. Normal [facility] ED Provider Noteon ED Provider Note EMERGENCY DEPARTMENT ENCOUNTER Pt Name: Anmol Reynolds Birthdate 1960 Date of evaluation: 04/21/2025 ED Provider: Chele León MD CHIEF COMPLAINT Chief Complaint Patient presents with Wound Infection Per EMS pt was sent here from the [place] for wound infections. Pt has two wound on his sacrum - one at the top of sacrum and one at the bottom of the buttocks. Denies any fever/ CP/FEVER/ SOB. Pt is paralysis. HISTORY OF PRESENT ILLNESS (Location/Symptom, Timing/Onset, Context/Setting, Quality, Duration, Modifying Factors, Severity) Note limiting factors. I wore appropriate PPE for the entirety of this encounter. HPI Anmol Reynolds is a 64 y.o. adult who presents to the emergency department with chief complaint of wound infections. Patient has a history of paraplegia paralyzed from the waist down due to spinal cord injury from surgery. Patient with a history of Sacrum wound and right buttocks wound has been getting worse over time per nursing facility. Patient denies fevers, chills, chest pain, shortness of breath, nausea, vomiting. EMS reported that blood cultures were obtained at dressing site which showed growth. Nursing Notes were reviewed. Limitations to history: None Outside historians: EMS REVIEW OF SYSTEMS Review of Systems Pertinent positives and negatives as per HPI. PAST MEDICAL HISTORY Medical History[1] SURGICAL HISTORY Surgical History[2] CURRENT MEDICATIONS Previous Medications ACETAMINOPHEN (TYLENOL) 325 MG TABLET Take 650 mg by mouth every 6 hours as needed. For elevated temp and/or pain. Do not exceed 3 grams in 24 hour period. ACETIC ACID 0.25 % IRRIGATION ALOGLIPTIN (NESINA) 25 MG TABLET daily. APIXABAN (ELIQUIS) 5 MG TABLET Take 5 mg by mouth twice a day. ASPIRIN 81 MG EC TABLET Take 81 mg by mouth daily. BISACODYL (DULCOLAX) 5 MG EC TABLET Take 5 mg by mouth Daily as needed for constipation. Do not crush, chew, or split. BISACODYL (DULCOLAX) 5 MG SPLIT SUPPOSITORY Insert into the rectum Daily as needed. CALCIUM CARBONATE (TUMS) 500 MG CHEWABLE TABLET 1,000 mg every 8 hours as needed for indigestion or heartburn. CYCLOBENZAPRINE (FLEXERIL) 10 MG TABLET Take 10 mg by mouth 3 times daily as needed for muscle spasms. DOCUSATE SODIUM (COLACE) 100 MG TABLET Take 100 mg by mouth 2 times daily. DULOXETINE (CYMBALTA) [address] CAPSULE Take 30 mg by mouth daily. FERROUS SULFATE 325 (65 FE) MG TABLET Take 325 mg by mouth daily (with breakfast). HYPROMELLOSE (PURE & GENTLE LUBRICANT) 0.3 % SOLUTION Administer 1 drop into affected eye(s) if needed. INSULIN GLARGINE (LANTUS) 100 UNIT/ML PEN Inject 45 Units under the skin every morning. INSULIN LISPRO (HUMALOG) 100 UNIT/ML SOLUTION INJECTION Inject 0-28 Units under the skin. 0-160=0 units; 161-200=14 units, 201-250=18 units, 251-300=20 units 301-350=22 units, 351-400=28 units, 401 or higher give 28 units and call physician. LINAGLIPTIN (TRADJENTA) 5 MG TABLET 5 mg daily. MAGNESIUM HYDROXIDE (MILK OF MAGNESIA PO) Take 30 mL by mouth Daily as needed. MIDODRINE (PROAMATINE) 10 MG TABLET Take 10 mg by mouth 3 times a day. MIRTAZAPINE (REMERON) 7.5 MG TABLET Take 7.5 mg by mouth Nightly. MULTIPLE VITAMIN (MULTIVITAMIN) CAPSULE Take 1 capsule by mouth daily. NALOXONE (NARCAN) 4 MG/0.1 ML NASAL SPRAY OXYCODONE (ROXICODONE) 15 MG IMMEDIATE RELEASE TABLET Take 1 tablet (15 mg) by mouth in the morning and 1 tablet (15 mg) at noon and 1 tablet (15 mg) in the evening and 1 tablet (15 mg) before bedtime. POLYETHYLENE GLYCOL, PEG, 3350 (MIRALAX) 17 G PACKET Take 17 g by mouth in the morning and 17 g in the evening. POTASSIUM CHLORIDE CR (KLOR-CON M20) 20 MEQ ER TABLET 40 mEq daily. PREGABALIN (LYRICA) 200 MG CAPSULE Take 1 capsule (200 mg) by mouth 3 times daily for 7 days. SENNA-DOCUSATE (CHEYENNE-COLACE) 8.6-50 MG TABLET Take 2 tablets by mouth twice a day. SODIUM CHLORIDE 0.9 % IRRIGATION SOLUTION Irrigate with as directed. 10 ml every 12 hours before and after medication administration SULFAMETHOXAZOLE-TRIM ETHOPRIM (BACTRIM DS) 800-160 MG TABLET 1 tablet every 12 hours. TAMSULOSIN (FLOMAX) 0.4 MG 24 HR CAPSULE 0.4 mg daily. ALLERGIES Patient has no known allergies. FAMILY HISTORY Family History[3] SOCIAL HISTORY Social History[4] SCREENINGS Beatrice Coma Scale Best Eye Response: Spontaneous Best Verbal Response: Oriented Best Motor Response: Follows commands Dumas Coma Scale Score: 15 PHYSICAL EXAM ED Triage Vitals [04/21/25 2228] Temp Heart Rate Resp BP 36.7 ?C (98.1 ?F) 82 16 113/62 SpO2 Temp Source Heart Rate Source Patient Position 95 % Oral Monitor Lying BP Location FiO2 (%) Right arm -- Physical Exam Vitals and nursing note reviewed. Constitutional: General: He is not in acute distress. Appearance: Normal appearance. He is well-developed. He is not ill-appearing. HENT: Head: Normocephalic and atraumatic. Eyes: Ex (more content not included)... Normal [facility] ESR (Bld) [Velocity]Ordered By: Grecia Hutton on 04-21-2025 Interpretation and review of laboratory results Abnormal [facility] HEMOGLOBIN A1Con 04-21-2025 Glucose [Mass/Vol] 180 mg/dL Normal [facility] Comment on above: Result Comment: [facility] COMMENTS: If not done within the last 3 mos HbA1c values of 5.7-6.4 percent indicate an increased risk for developing diabetes mellitus. HbA1c values greater than or equal to 6.5 percent are diagnostic of diabetes mellitus. For diagnosis of diabetes in individuals without unequivocal hyperglycemia, results should be confirmed by repeat testing. Performed By: #### L [id number] #### Auto Fleet Maintenance Manager: BIANCA NICHOLS ([phone]) [facility] [address] [place] [address] HEMOGLOBIN A1C 7.9 %HbA1C High <5.7 [facility] Comment on above: Result Comment: Norm al less than 5.7% Prediabetes 5.7% to 6.4% Diabetes 6.5% or higher --HgbA1C levels may not be accurate in patients who have renal disease, received recent blood transfusions, are anemic, or who have dyshemoglobinemia. Performed By: #### L [id number] #### Auto Fleet Maintenance Manager: BIANCA NICHOLS ([phone]) [facility] ([facility]) [address] [place] [address] LACTIC ACID WITH REFLEXon Lactate [Moles/Vol] 1.1 mmol/L Normal 0.5-2.2 [facility] Comment on above: Performed By: #### L [id number] #### Auto Fleet Maintenance Manager: BIANCA NICHOLS ([phone]) [facility] [address] [place] [address] Laboratory - Chemistry and C hemistry - challengeon 04-21-2025 Lactate [Moles/Vol] 1.1 mmol/L 0.5 - 2. 2 mmol/L [facility] - Hematology and Cell countsOrdered By: Grecia Hutton on 04-21-2025 ESR (Bld) [Velocity] 78 mm/h High [facility] No Panel Informationon 04-21 Interpretation and review of laboratory results Normal [facility] Progress Noteon 04-21-2025 Progress Note Patient: Anmol Reynolds : 1960 Date of Evaluation: 04/21/2025 ED Supervising Physician: Brad Campos MD I personally evaluated Anmol Reynolds and made/approved the management plan and take responsibility for the patient management. In brief, Anmol Reynolds is a 64 y.o. that presents to the emergency department with concerns for wound infection. Patient is paraplegic secondary to a surgical complication years ago. States that he is at a care home and they were concerned that his wounds on his sacrum and buttock are getting infected. On physical exam he has a wound on his sacrum at the top of the gluteal cleft which appears to be healing well. The patient states that wound is old. He also has a stage III decubitus ulcer on his right buttock with surrounding erythema that is hot to touch and foul-smelling. Will start antibiotics, check labs, check CT, and reassess. For full details of the encounter please see the resident note dated same day. Differential diagnosis: Acute cellulitis, acute wound infection, acute osteomyelitis, acute sepsis I personally discussed the patient's management with other clinicians: CHIEF COMPLAINT Chief Complaint Patient presents with Wound Infection Per EMS pt was sent here from the [place] for wound infections. Pt has two wound on his sacrum - one at the top of sacrum and one at the bottom of the buttocks. Denies any fever/ CP/FEVER/ SOB. Pt is paralysis. HISTORY OF PRESENT ILLNESS (Location/Symptom, Timing/Onset, Context/Setting, Quality, Duration, Modifying Factors, Severity) Note limiting factors. I wore appropriate PPE for the entirety of this encounter. Nursing Notes were reviewed. Limitations to history: None Outside historians: None REVIEW OF SYSTEMS Review of Systems Pertinent positives and negatives as per HPI. PAST MEDICAL HISTORY Medical History[1] SURGICAL HISTORY Surgical History[2] CURRENT MEDICATIONS Previous Medications ACETAMINOPHEN (TYLENOL) 325 MG TABLET Take 650 mg by mouth every 6 hours as needed. For elevated temp and/or pain. Do not exceed 3 grams in 24 hour period. ACETIC ACID 0.25 % IRRIGATION ALOGLIPTIN (NESINA) 25 MG TABLET daily. APIXABAN (ELIQUIS) 5 MG TABLET Take 5 mg by mouth twice a day. ASPIRIN 81 MG EC TABLET Take 81 mg by mouth daily. BISACODYL (DULCOLAX) 5 MG EC TABLET Take 5 mg by mouth Daily as needed for constipation. Do not crush, chew, or split. BISACODYL (DULCOLAX) 5 MG SPLIT SUPPOSITORY Insert into the rectum Daily as needed. CALCIUM CARBONATE (TUMS) 500 MG CHEWABLE TABLET 1,000 mg every 8 hours as needed for indigestion or heartburn. CYCLOBENZAPRINE (FLEXERIL) 10 MG TABLET Take 10 mg by mouth 3 times daily as needed for muscle spasms. DOCUSATE SODIUM (COLACE) 100 MG TABLET Take 100 mg by mouth 2 times daily. DULOXETINE (CYMBALTA) [address] CAPSULE Take 30 mg by mouth daily. FERROUS SULFATE 325 (65 FE) MG TABLET Take 325 mg by mouth daily (with breakfast). HYPROMELLOSE (PURE & GENTLE LUBRICANT) 0.3 % SOLUTION Administer 1 drop into affected eye(s) if needed. INSULIN GLARGINE (LANTUS) 100 UNIT/ML PEN Inject 45 Units under the skin every morning. INSULIN LISPRO (HUMALOG) 100 UNIT/ML SOLUTION INJECTION Inject 0-28 Units under the skin. 0-160=0 units; 161-200=14 units, 201-250=18 units, 251-300=20 units 301-350=22 units, 351-400=28 units, 401 or higher give 28 units and call physician. LINAGLIPTIN (TRADJENTA) 5 MG TABLET 5 mg daily. MAGNESIUM HYDROXIDE (MILK OF MAGNESIA PO) Take 30 mL by mouth Daily as needed. MIDODRINE (PROAMATINE) 10 MG TABLET Take 10 mg by mouth 3 times a day. MIRTAZAPINE (REMERON) 7.5 MG TABLET Take 7.5 mg by mouth Nightly. MULTIPLE VITAMIN (MULTIVITAMIN) CAPSULE Take 1 capsule by mouth daily. NALOXONE (NARCAN) 4 MG/0.1 ML NASAL SPRAY OXYCODONE (ROXICODONE) 15 MG IMMEDIATE RELEASE TABLET Take 1 tablet (15 mg) by mouth in the morning and 1 tablet (15 mg) at noon and 1 tablet (15 mg) in the evening and 1 tablet (15 mg) before bedtime. POLYETHYLENE GLYCOL, PEG, 3350 (MIRALAX) 17 G PACKET Take 17 g by mouth in the morning and 17 g in the evening. POTASSIUM CHLORIDE CR (KLOR-CON M20) 20 MEQ ER TABLET 40 mEq daily. PREGABALIN (LYRICA) 200 MG CAPSULE Take 1 capsule (200 mg) by mouth 3 times daily for 7 days. SENNA-DOCUSATE (CHEYENNE-COLACE) 8.6-50 MG TABLET Take 2 tablets by mouth twice a day. SODIUM CHLORIDE 0.9 % IRRIGATION SOLUTION Irrigate with as directed. 10 ml every 12 hours before and after medication administration SULFAMETHOXAZOLE-TRIM ETHOPRIM (BACTRIM DS) 800-160 MG TABLET 1 tablet every 12 hours. TAMSULOSIN (FLOMAX) 0.4 MG 24 HR CAPSULE 0.4 mg daily. ALLERGIES Patient has no known allergies. FAMILY HISTORY Family History[3] SOCIAL HISTORY Social History[4] SCREENINGS [place]as Coma Scale Best Eye Response: Spontaneous Best Verbal Response: Oriented Best Motor Response: Follows commands Dumas (more content not included)... Normal [facility] SEDIMENTATION RATE, AUTOMATE Don 04-21-2025 SEDIMENTATION RATE, ERYTHROCYTE 78 mm/hr High 0-10 [facility] Comment on above: Performed By: #### L [id number] #### Auto Fleet Maintenance Manager: BIANCA NICOHLS ([phone]) [facility] ([facility]) [address] [place] [address] Urine Cultureon 04-20-2025 [facility] Providencia stuartii [place] Count >100,000 Providencia stuartii: REACTION Ampicillin Islt HARINDER >=32 Ampicillin+Sulbac Islt HARINDER R Cefepime Islt HARNIDER <=0.12 S cefTRIAXone Islt HARINDER <=0.25 S Ciprofloxacin Islt HARINDER >=4 R Gentamicin Islt HARINDER R levoFLOXacin Islt HARINDER >=8 R Meropenem Islt HARINDER 1 S Nitrofurantoin Islt HARINDER 128 R Pip+Tazo Islt HARINDER <=4 S TMP SMX Islt HARINDER >=320 R Normal [facility] Comment on above: Performed By: #### L [id number], [id number], L100.0500 #### [facility] [address] [place], [place], [id number] Gram Stainon 04-18-2025 GS L BUTTOCKS Gram Stain 4+ Gram positive cocci 1+ Gram negative rods 2+ White Blood Cells Normal [facility] Comment on above: Performed By: #### L [id number], [id number], L100.0500 #### [facility] [address] [place], [place], [id number] Urinalysis, Completeon 04-18 AMORPHOUS 4+ Normal [facility] Comment on above: Order Comment: 313.2 Performed By: #### L [id number], [id number], [id number] #### [facility] [address] [place], [address] WBC 0-5 SEEN Normal 0-5 [facility] Comment on above: Order Comment: 313.2 Performed By: #### L [id number], [id number], [id number] #### [facility] [address] [place], [address] TRIPLE PHOS 4+ /hpf Normal [facility] [facility] Comment on above: Order Comment: 313.2 Performed By: #### L 501.6710, L101.9900, L100.0500 #### [facility] [address] [place], [address] BACTERIA 0 SEEN Normal None Seen [facility] Comment on above: Order Comment: 313.2 Performed By: #### L 501.6710, L101.9900, L100.0500 #### [facility] [address] [place], [address] EPI,SQUAMOUS 0 SEEN Normal 0-5 [facility] Comment on above: Order Comment: 313.2 Performed By: #### L 501.6710, L101.9900, L100.0500 #### [facility] [address] [place], [address] Mucus Ql (Urine sed) 0 SEEN Normal [facility] Comment on above: Order Comment: 313.2 Performed By: #### L [id number], L101.9900, L100.0500 #### [facility] [address] [place], [address] RBC 0 SEEN Normal 0-5 [facility] Comment on above: Order Comment: 313.2 Performed By: #### L [id number], L101.9900, L100.0500 #### [facility] [address] [place], [address] CNPChina 03-24-2025 SHARIFAN Telephone (UROLAE) GIVEN,ANMOL ARAUJO ([id number]) 1960 M Date Time Provider Department 03/24/25 ANMOL HERBERT During your visit today, we recorded the following information about you: Debbie Downing 03/24/2025 9:54 AM Signed Per op note pt should get a renal US in [address] the order? Allergies As of Date: 03/24/2025 (No Known Allergies) Date Reviewed: 03/20/2025 Reviewed by: Rosa Acosta, RN - Fully Assessed Prescriptions as of 03/24/2025 - acetaminophen 325 mg cap Take 2 capsules by mouth every 6 hours as needed for pain or fever (specify temp.). - apixaban (ELIQUIS) 5 mg tab(s) Take 1 tablet by mouth two times a day. - insulin glargine 100 unit/mL (3 mL) Inject 20 Units subcutaneously every morning. - insulin lispro 100 unit/mL injection Inject 0-15 Units subcutaneously with meals and at bedtime. ADMINISTER CORRECTIONAL INSULIN REGARDLESS OF MEAL OR NUTRITION INTAKE Scale 3 If Blood Glucose (mg/dL) is: Less than 110 Give 0 units 111-150 Give 1 unit 151-200 Give 3 units 201-250 Give 6 units 251-300 Give 9 units 301-350 Give 12 units 351-400 Give 15 units Greater than 400 Give 15 units and Notify Provider Notify provider if 2 consecutive blood glucose values in the previous 24 hours are greater than 250 mg/dL and there have been no changes to the insulin regimen in the previous 24 hours. - senna-docusate (SENNA-S) 8.6-50 mg per tablet Take 2 tablets by mouth two times a day. - midodrine (PROAMATINE) 10 mg tablet Take 1 tablet by mouth every 8 hours. - aspirin 81 mg chewable tablet 1 tablet by ORAL/FEEDING TUBE route once daily. - DULoxetine (CYMBALTA) 30 mg capsule Take 30 mg by mouth once daily. - polyethylene glycol 3350 17 gram packet Take 17 g by mouth once daily as needed for constipation. Dissolve dose in 4 - 8 ounces of liquid and take as directed. - Mirtazapine (REMERON) 7.5 mg tablet Take 7.5 mg by mouth daily at bedtime. - therapeutic multivitamin-minerals (THERA-M PLUS) 9 mg iron-400 mcg tablet Take 1 tablet by mouth once daily. - pregablin (LYRICA) 200 mg capsule Take 200 mg by mouth three times a day. - linaGLIPtin (TRADJENTA) 5 mg tab Take 5 mg by mouth once daily. - calcium carbonate (TUMS) 500 mg chew Take 500 mg by mouth every 8 hours as needed (heartburn). - ferrous sulfate 325 mg (65 mg iron) tablet Take 325 mg by mouth once daily. - oxyCODONE (ROXICODONE) 15 mg immediate release tablet Take 15 mg by mouth four times daily. - docusate sodium (COLACE) 100 mg capsule Take 1 capsule by mouth twice daily. - tamsulosin (FLOMAX) 0.4 mg Take 1 capsule by mouth once daily. - cyclobenzaprine (FLEXERIL) 10 mg tablet Take 1 tablet by mouth three times daily. Meds Comments as of 02/17/2025: Verified medications with [facility] 02/17/2025 Problem List As Of Date 03/24/2025 Noted Resolved NO SHOW [089758] 08/31/2013 05/29/2020 Perineal abscess [L02.215] 06/13/2019 05/29/2020 Nicotine use disorder, F17.2 [F17.200] 06/14/2019 Pilonidal cyst without abscess [L05.91] 05/29/2020 Pilonidal cyst with abscess [L05.01] 12/31/2020 Perirectal abscess [K61.1] 01/16/2021 08/21/2021 Type 2 diabetes mellitus with hyperglycemia, wi*01/18/2021 Abnormal weight loss [R63.4] 08/21/2021 Elevated hemoglobin A1c [R73.09] 08/21/2021 Elevated CA 19-9 level [R97.8] 08/21/2021 Elevated carcinoembryonic antigen (CEA) [R97.0] 08/21/2021 Weight loss [R63.4] 09/03/2021 Severe protein-calorie malnutrition (HCC) [E43] 09/04/2021 Ureteral calculi [N20.1] 11/25/2021 Complicated UTI (urinary tract infection) [N39.*11/26/2021 Chronic low back pain [M54.50, G89.29] 11/26/2021 Chronic pain of right ankle [M25.571, G89.29] 11/26/2021 Pyelitis [N12] 11/27/2021 MRSA bacteremia [R78.81, B95.62] 11/27/2021 Epidural abscess [G06.2] 01/04/2022 Vertebral osteomyelitis (HCC) [M46.20] 01/04/2022 Sacral osteomyelitis (HCC) [M46.28] 04/24/2023 Other hydronephrosis [N13.39] 04/24/2023 Neurogenic bladder [N31.9] 04/24/2023 Presence of indwelling Santana catheter [Z97.8] 04/24/2023 Pressure injury of coccygeal region, stage 3 (H*04/24/2023 Pressure injury of left knee, stage 2 (HCC) [L8*04/24/[address] scan, pelvis [R93.5] 04/24/2023 Gram-negative infection [A49.9] 04/24/2023 Counseling, unspecified [Z71.9] 04/24/2023 Enterococcus faecalis infection [A49.8] 04/28/2023 Klebsiella pneumoniae infection [A49.8] 04/28/2023 Gross hematuria [R31.0] 05/03/2023 Septic shock (HCC) [A41.9, R65.21] 02/17/2025 Pressure injury of left buttock, unstageable (H*02/17/2025 Gram negative septicemia (HCC) [A41.50] 02/17/2025 Bacteremia due to Enterococcus [R78.81, B95.2] 02/17/2025 Fever, unspecified [R50.9] 02/17/2025 Leukocytosis [D72.829] 02/17/2025 Altered mental status [R41.82] 02/17/2025 Paraplegia (HCC) [G82.20] 02/17/2025 Proctoco (more content not included)... Normal [facility] ANES POSTPROC EVALon 025 ANES POSTPROC EVAL HNO ID: [id number] Author: AUDREY SIMMONS MD Service: Anesthesiology Author Type: Anesthesiologist Type: Anesthesia Postprocedure Evaluation Filed: 03/20/2025 12:16 Note Text: POST ANESTHESIA EVALUATION NOTE : 1960 Procedure Summary Date: 03/20/25 Room / Location: [place] OR 18 / [place] OR Anesthesia Start: 1024 Anesthesia Stop: 1114 Procedures: CYSTOSCOPY, RETROPYELOGRAM (Bladder) CYSTOURETHROSCOPY W/ REMOVE URETERAL STENT (Bilateral: Ureter) INSERTION STENT DOUBLE J (Bilateral: Ureter) Diagnosis: Other hydronephrosis (Other hydronephrosis [N13.39]) Surgeons: Anmol Herbert MD Responsible Provider: Audrey Simmons MD Anesthesia Type: general ASA Status: 3 Anesthesia Type: general Airway Type: LMA Last Vitals Vitals Value Taken Time BP 121/71 03/20/25 1145 Temp 36 ?C (96.8 ?F) 03/20/25 1130 HR SpO2 64 03/20/25 1149 Resp 15 03/20/25 1149 SpO2 99 % 03/20/25 1149 Vitals shown include unfiled device data. Post Anesthesia Patient Status Patient Evaluation: PACU. PACU/ICU Patient Condition: stable. Anticipated Disposition: phase 2 then home. Neurological Status: aware and responsive. Pulmonary Status: breathing comfortably on room air Airway Control: returned to baseline unsupported. Cardiovascular Status: stable. Pain Management: clinically adequate Postoperative Hydration: acceptable. Intraoperative Events: no significant anesthesia events Post Operative Nausea/Vomiting Status: no significant post operative nausea or vomiting Recommendation: continue current plan of care. Anesthesia Observations No Documentation SIGNATURE: Audrey Simmons MD PATIENT NAME: Anmol Reynolds DATE: March 20, 2025 TIME: 12:16 PM CSN: [id number] Normal [facility] ANES PRE-OPon 03-20-2025 ANES PRE-OP HNO ID: [id number] Author: AUDREY SIMMONS MD Service: Anesthesiology Author Type: Anesthesiologist Type: Anesthesia Preprocedure Evaluation Filed: 03/20/2025 09:54 Note Text: ANESTHESIOLOGY DAY OF SURGERY NOTE : 1960 Procedure Information Date/Time: 03/20/25 1000 Procedures: CYSTOSCOPY, RETROPYELOGRAM (Bladder) CYSTOURETHROSCOPY W/ REMOVE URETERAL STENT (Bilateral: Ureter) INSERTION STENT DOUBLE J (Bilateral: Ureter) Location: [place] OR 18 / [place] OR Surgeons: Anmol Herbert MD Estimated body mass index is 29.79 kg/m? as calculated from the following: Height as of 02/17/25: 180.3 cm (5' 11"). Weight as of 02/22/25: 96.9 kg (213 lb 10 oz). Most recent hematocrit and potassium results: Hematocrit 33.6 02/22/2025 Potassium 3.9 02/22/2025 Potassium (POCT) 4.1 02/16/2025 Other history: T2DM on insulin H/o sacral and vertebral osteomyelitis H/o epidural abscess with paraplegia CAD - no h/o PCI + tobacco - 6 cigarettes per day and vaping A fib - eliquis Recent admission for septic shock 02/16-02/22; with intubation/ICU Chronic low BP; was on norepi in ICU and weaned to PO midodrine, taken today Echo 02/2025: CONCLUSIONS: - Technically difficult exam due to supine. - Exam indication: Sustained atrial fibrillation - The left ventricle is normal in size. There is no left ventricular hypertrophy. Left ventricular systolic function is mildly decreased. EF = 45 ? 5% (visual est.) Definity contrast used for endocardial border detection. Indeterminate left ventricular diastolic function due to E/A fusion and AF. - The right ventricle is mildly dilated. Right ventricular systolic function is low normal. - There are no significant valvular abnormalities. - Exam was compared with the prior echocardiographic exam performed on 01/23/2022. LV wall motion abnormalities seen on today's exam. Relevant Problems ENDO (+) Type 2 diabetes mellitus with hyperglycemia, with long-term current use of insulin (HCC) -RENAL (+) Other hydronephrosis (+) Pyelitis Other (+) Sacral osteomyelitis (HCC) (+) Vertebral osteomyelitis (HCC) I - PHYSICAL EVALUATION AIRWAY Patient intubated: No. Tracheostomy tube not present Mallampati: III. TM distance: >3 FB. Neck ROM: limited extension. Mouth opening: adequate. Short neck: no. Thick neck: no Newsome present: yes DENTAL Dental findings: poor dentition. Dentures, upper: partial. II - ANESTHESIA PLAN ASA Score: 3 Anesthetic Plan: general Airway type: LMA The patient is a current smoker. NPO Status: adequate Beta Savi Monitoring Plan Monitoring plan: standard ASA. Post Procedure Analgesic Plan Postoperative analgesic plan: multimodal analgesia. Informed Consent Anesthetic risks, benefits, alternatives, personnel and consent discussed: yes. Patient / Responsible Constitution Party agrees to proceed: yes Patient / Surrogate agrees to blood products: blood products not planned Significant changes in the patient condition since the History and Physical, not otherwise documented in primary service progress note: no. Potential Anesthesia issues that may suggest increased risk of complications or contraindication to planned procedure: none. No vitals data found for the desired time range. No current facility-administered medications on file as of . Outpatient Medications as of Medication Sig apixaban (ELIQUIS) 5 mg tab(s) Take 1 tablet by mouth two times a day. insulin glargine 100 unit/mL (3 mL) Inject 20 Units subcutaneously every morning. insulin lispro 100 unit/mL injection Inject 0-15 Units subcutaneously with meals and at bedtime. ADMINISTER CORRECTIONAL INSULIN REGARDLESS OF MEAL OR NUTRITION INTAKE Scale 3 If Blood Glucose (mg/dL) is: Less than 110 Give 0 units 111-150 Give 1 unit 151-200 Give 3 units 201-250 Give 6 units 251-300 Give 9 units 301-350 Give 12 units 351-400 Give 15 units Greater than 400 Give 15 units and Notify Provider Notify provider if 2 consecutive blood glucose values in the previous 24 hours are greater than 250 mg/dL and there have been no changes to the insulin regimen in the previous 24 hours. senna-docusate (SENNA-S) 8.6-50 mg per tablet Take 2 tablets by mouth two times a day. midodrine (PROAMATINE) 10 mg tablet Take 1 tablet by mouth every 8 hours. [] amoxicillin (AMOXIL) 500 mg capsule Take 2 capsules by mouth every 8 hours for 9 days. [] sulfamethoxazole-trim ethoprim (BACTRIM DS) 800-160 mg per tablet Take 1 tablet by mouth two times a day for 9 days. [] cefdinir (OMNICEF) 300 mg capsule Take 1 capsule by mouth two times a day for 9 days. aspirin 81 mg chewable tablet 1 tablet by ORAL/FEEDING TUBE route once daily. (Patient not taking: Reported on 03/14/2025) DULoxetine (CYMBALTA) 30 mg capsule Take 30 mg by mouth once daily. polyethylene glycol 3350 17 gram packet Take 17 g by mouth once daily as needed (more content not included)... Normal [facility] HISTORY PHYSICALon HISTORY PHYSICAL HNO ID: [id number] Author: ANMOL HERBERT MD Service: Urology Author Type: Resident Type: H&P Filed: 03/20/2025 10:14 Note Text: Attestation signed by Anmol Herbert MD at 03/20/2025 10:14 AM I saw and evaluated the patient. Discussed with the resident and agree with resident's findings and plan as documented in the resident's note. Urology HANDP 03/20/2025 HISTORY OF PRESENT ILLNESS: The patient is a 64 year old male known to our service. Has bilateral stents in place for bilateral ureteral obstruction causing urosepsis. Plan is to evaluate ureters and possibly remove vs exchange stents. Urologic history See previous consult note PAST MEDICAL HISTORY: PAST MEDICAL HISTORY Diagnosis Date Arthritis Chronic low back pain 11/26/2021 Chronic pain of right ankle 11/26/2021 Coronary artery disease Hx:Afib Diabetes (HCC) Elevated CA 19-9 level 08/21/2021 Epidural abscess (HCC) 01/04/2022 MRSA bacteremia 11/27/2021 Neuropathy Nicotine use disorder, F17.2 06/14/2019 Pilonidal cyst with abscess 12/31/2020 Pilonidal cyst without abscess 05/29/2020 Pyelonephritis 11/27/2021 Sciatica Severe protein-calorie malnutrition (HCC) 09/04/2021 Type 2 diabetes mellitus with hyperglycemia, with long-term current use of insulin (HCC) 01/18/2021 Ureteral stone 11/25/2021 UTI (urinary tract infection) 11/26/2021 Vertebral osteomyelitis (HCC) 01/04/2022 PAST SURGICAL HISTORY: PAST SURGICAL HISTORY Procedure Laterality Date BACK SURGERY HX I AND D OF PERIANAL ABSCESS, SIMPLE 05/04/2020 in ER INC/DRAINAGE OF PERINEAL ABSCESS 06/13/[address] Franklin JOINT REPLACEMENT HX ankle surgery right ORTHOPEDICS SURGERY HX ALLERGIES: ALLERGIES No Known Allergies HOME MEDICATIONS: acetaminophen 325 mg cap, Take 2 capsules by mouth every 6 hours as needed for pain or fever (specify temp.)., Disp: , Rfl: apixaban (ELIQUIS) 5 mg tab(s), Take 1 tablet by mouth two times a day., Disp: 60 tablet, Rfl: 0 insulin glargine 100 unit/mL (3 mL), Inject 20 Units subcutaneously every morning., Disp: , Rfl: insulin lispro 100 unit/mL injection, Inject 0-15 Units subcutaneously with meals and at bedtime. ADMINISTER CORRECTIONAL INSULIN REGARDLESS OF MEAL OR NUTRITION INTAKE Scale 3 If Blood Glucose (mg/dL) is: Less than 110 Give 0 units 111-150 Give 1 unit 151-200 Give 3 units 201-250 Give 6 units 251-300 Give 9 units 301-350 Give 12 units 351-400 Give 15 units Greater than 400 Give 15 units and Notify Provider Notify provider if 2 consecutive blood glucose values in the previous 24 hours are greater than 250 mg/dL and there have been no changes to the insulin regimen in the previous 24 hours., Disp: , Rfl: senna-docusate (SENNA-S) 8.6-50 mg per tablet, Take 2 tablets by mouth two times a day., Disp: 120 tablet, Rfl: midodrine (PROAMATINE) 10 mg tablet, Take 1 tablet by mouth every 8 hours., Disp: 90 tablet, Rfl: aspirin 81 mg chewable tablet, 1 tablet by ORAL/FEEDING TUBE route once daily. (Patient not taking: Reported on 03/14/2025), Disp: , Rfl: DULoxetine (CYMBALTA) 30 mg capsule, Take 30 mg by mouth once daily., Disp: , Rfl: polyethylene glycol 3350 17 gram packet, Take 17 g by mouth once daily as needed for constipation. Dissolve dose in 4 - 8 ounces of liquid and take as directed., Disp: , Rfl: Mirtazapine (REMERON) 7.5 mg tablet, Take 7.5 mg by mouth daily at bedtime., Disp: , Rfl: therapeutic multivitamin-minerals (THERA-M PLUS) 9 mg iron-400 mcg tablet, Take 1 tablet by mouth once daily., Disp: , Rfl: pregablin (LYRICA) 200 mg capsule, Take 200 mg by mouth three times a day., Disp: , Rfl: linaGLIPtin (TRADJENTA) 5 mg tab, Take 5 mg by mouth once daily., Disp: , Rfl: calcium carbonate (TUMS) 500 mg chew, Take 500 mg by mouth every 8 hours as needed (heartburn)., Disp: , Rfl: ferrous sulfate 325 mg (65 mg iron) tablet, Take 325 mg by mouth once daily., Disp: , Rfl: oxyCODONE (ROXICODONE) 15 mg immediate release tablet, Take 15 mg by mouth four times daily., Disp: , Rfl: docusate sodium (COLACE) 100 mg capsule, Take 1 capsule by mouth twice daily., Disp: , Rfl: tamsulosin (FLOMAX) 0.4 mg, Take 1 capsule by mouth once daily., Disp: , Rfl: cyclobenzaprine (FLEXERIL) 10 mg tablet, Take 1 tablet by mouth three times daily., Disp: , Rfl: FAMILY HISTORY: History reviewed. No pertinent family history. Social History: Tobacco Use: Types: Cigarettes Alcohol Use: No PHYSICAL EXAM: VITALS: There were no vitals filed for this visit. General: Alert, in no acute distress Respiratory: normal effort Abdomen: soft, non distended, non tender : R. flank NTTP, L. flank NTTP, and no suprapubic TTP DATA: LABS: BMP: . Glucose (mg/dL) Date Value 02/22 (more content not included)... Normal [facility] OPERATIVE NOon 03-20-2025 OPERATIVE NO HNO ID: [id number] Author: ANMOL HERBERT MD Service: Urology Author Type: Physician Type: Operative Report Filed: 03/21/2025 07:31 Note Text: OPERATIVE/PROCEDURE REPORT LOG ID: [id number] SURGERY/PROCEDURE DATE: 03/20/2025 INCISION/PROCEDURE START TIME: 10:34 AM INCISION CLOSE/PROCEDURE END TIME: 11:03 AM SURGEON(S)/PROCEDURAL IST(S) AND LOG SNAKER(S): Surgeons and Role: * Anmol Herbert MD - Primary * Jose Nesbitt MD - Resident - Assisting No Additional Staff SURGERY/PROCEDURE(S): CYSTOSCOPY, RETROPYELOGRAM: 32726 (CPT?) CYSTOURETHROSCOPY W/ REMOVE URETERAL STENT: 97828 (CPT?) INSERTION STENT DOUBLE J: 70389 (CPT?) ANESTHESIA: General SURGERY/PROCEDURE DETAILS: Anmol Reynolds is a 64 year old patient who presents with bilateral indwelling stents since May 2024. After having a discussion on treatment options, risks and benefits, the patient wishes to proceed forward with surgical intervention. Patient was brought to the operating room and identified using name band/number. A thorough time out was performed and everyone present was in agreement. Patient was placed on OR table. Anesthesia and lines were maintained by the anesthesia team. Patient was placed in the dorsal lithotomy position, prepped with Betadine, and draped in the usual sterile fashion. Pressure points were padded. SCDs were on and functioning prior to the beginning of the procedure. Chronic 20 Slovenian catheter was removed. A 21F cystourethroscope was inserted transurethrally into the bladder. There were no urethral strictures present. Patient had a short prostatic fossa. Pancystoscopy demonstrated pre-existing bilateral ureteral stents. Stents were covered in thick partially calcified mucus that was appropriately removed using stent graspers. Right ureteral stent was removed using graspers and appropriate E flux of urine was seen from ureteral orifice. Acone tip catheter was inserted in the right ureteral orifice and contrast injected. Right pyelogram demonstrated no filling defects. The same process was repeated on the left. Left pyelogram demonstrated no filling defects except for potential left renal lower pole stone. Decision was made to not leave stents and did not go after lower pole left stone as did not want to leave another stent due to compliance issues. Bladder was emptied of all mucus and cystoscope was removed. 20 Slovenian catheter with 10 cc in balloon was replaced. Patient awoken from anesthesia having tolerated the procedure well. Anmol Reynolds Was transferred to recovery room. PRE-OP/PRE-PROCEDURE DIAGNOSIS: Pre-existing ureteral stents bilateral POST-OP/POST-PROCEDUR E DIAGNOSIS: Same ESTIMATED BLOOD LOSS: 0 ml SPECIMENS: None IMPLANTABLE DEVICES: NONE DRAINS: 20 Slovenian Santana catheter with 10 cc in balloon COMPLICATIONS: None PARTICIPATION IN SURGERY/PROCEDURE: Resident performed the procedure, under direct supervision and the remainder of the procedure was performed by the primary surgeon/proceduralist with assistance. Jose Nesbitt MD PGY1 Urology 11:20 AM 03/20/25 I was present and participated during the entire procedure, including non-thomas portions. Renal US in 4 weeks. See me after. Anmol Herbert MD March 21, 2025 7:31 AM Normal [facility] XR RETROGRADE PYELOGRAM BILo n 03-20-2025 XR RETROGRADE PYELOGRAM KENROY * * *Final Report* * * DATE OF EXAM: Mar 20 2025 5:16PM [facility] 3021 - XR RETROGRADE PYELOGRAM KENROY / PROCEDURE REASON: CYSTOSCOPY W/PYELOGRAMS-BILATERA L/BILATERAL URETERAL STENT REMOVAL * * * * Physician Interpretation * * * * EXAM TITLE: XR RETROGRADE PYELOGRAM KENROY DATE: 03/20/2025 INDICATION: Bilateral ureteral stent removal COMPARISON: 02/17/2025 Study consists of 7 images showing removal of bilateral ureteral stents. Bilateral retrograde pyelograms were performed. Normal on the right side with no filling defects. Mild left-sided hydronephrosis. No obvious filling defects. Pedicle screws and stabilizing rods are seen in the lower thoracic and lumbar spine. 1.1 minutes of fluoroscopic time utilized. IMPRESSION: Intraoperative procedure films for removal of ureteral stents and bilateral retrograde pyelograms. [place] Supervisor: CECILIA Transcribe Date/Time: Mar 21 2025 8:21A Dictated by : KATHRIN MCKNIGHT MD This examination was interpreted and the report reviewed and electronically signed by: KATHRIN MCKNIGHT MD on Mar 21 2025 8:23AM EST [id number] N [facility] NURSING PROGon 03-17-2025 NURSING PROG HNO ID: [id number] Author: VICTORIANO GRANT RN Service: ? Author Type: Registered Nurse Type: Nursing Progress Note Filed: 03/17/2025 13:04 Note Text: Spoke w/ Comfort,surgical schedule @ 's office to verify scheduled time of Sx for Thursday;AND was directed that OR scheduled for 10:00;AND Eliquis does Not need to be held for procedure. [facility] 36on 03-15-2025 36 Spoke to nursing facility who states Pt is going to proceed with surgery at [facility]. [facility] 36 Left message for Pts nurse to call me back. [facility] CNOVon 03-14-2025 CNOV Office Visit ([facility] ) GIVEN,ANMOL ARAUJO ([id number]) 1960 M Date Time Provider Department 03/14/25 1:50 PM MILAD GOODSON [facility] During your visit today, we recorded the following information about you: Temperature Pulse Respiration Blood pressure 98 degrees 84/minute 20/minute 107/70 Dawood Tiwari RN 03/14/2025 2:54 PM Addendum Nursing Documentation Pertinent Medical History: paraplegia, MRSA, osteomyelitis, UTI, DM2, neuropathy, pyelonephritis, Wound Etiology according to patient: sacrum wound has had for four years per pt Patient arrived via: self in motorized wheelchair - patient is a [place] with multiple staff Home Care Company/Nursing Facility: [place] [facility] Consent captured for debridement per (Provider) and good until Special Instructions (for example, patient stands at the bedside for exam/dressing): bed Anticoagulant Therapy: Eliquis Living Situation (ie... Apartment, house, [facility] Who lives with patient: facility Who will be performing wound care: wound care nurse Available Support System: mom and daughter In-Home Assist Devices: motorized wheelchair Occupation: ie..Retired or Working: retired Provider seeing patient: Milad Goodson MD WOUND ASSESSMENT: Refer to Provider's Wound Assessment Note VASCULAR ASSESSMENT BY PROVIDER: N/A CHF History: no Smoking: yes 6 cigarettes at the most Education: EDEMA: n/a Right foot: Right calf: Left foot: Left Calf: Other: MEASUREMENTS: in CM n/a Right Calf: Right Ankle: Left Calf: Left Ankle: Length: ROGERIO'S Left: Right: Brachial Pressure: HR: WOUND PHOTOGRAPHY: YES x 2 , date taken: 03/14/25 DEBRIDEMENT PROCEDURE BY PROVIDER: Anesthetic Used: N/A applied per color straining bag washer # 1 AND 2 Other procedure: Specimen collected: WOUND TREATMENT PER MD ORDER: Wounds cleansed by mechanical debridement to allow provider to visualize wound base WOUND # 1 LOCATION: Sacrum patient laying on right side L: 2.1 cm x W: 0.4 cm x D: 1.1 cm Undermining 0900: 1.4 0300: 0.7 cm WOUND # 2 LOCATION:Left ischium L: 5.3 cm x W: 4.5 cm x D: 1.7 cm slight stretch to measure patient laying on right side Underminin: 0.9 Cleansed with: vashe Applied to cheyenne-wound skin: hydrocortisone cream followed by aure antifungal Applied to wound bed: calcium alginate AG Covered and secured with: 4x4's, abd pad, tape Other: COMPRESSION: N/A DME: Prism order date DME: [employer] , PH: [phone] SPECIAL NEEDS: EFax orders to [place] [phone] Emotional support N/A OR set-up N/A Pharmaceutical Sales Representative N/A Incontinence needs N/A DISCHARGED in stable condition to: facility in motorized wheelchair PLAN/ORDERS: - Return to the Wound Center to see Milad Goodson MD in 6 weeks. - Follow up in the wound center 1-2 weeks for buttock wounds - Please send patient with medication list at next appointment. - Continue aggressive nutritional support to assist wound healing Labs to be drawn PARI and results faxed to [facility] [phone] Stop smoking EDUCATION: The patient/family was instructed how to cleanse the wound(s). Visual demonstration on how to apply the dressing with teach back method. Signs AND symptoms of infection were reviewed: Increased redness, swelling, pain, green/yellow drainage, fever and/or chills would all need to be evaluated by a Physician. Patient received typed home-going wound care instructions and has expressed intent to comply. Due to the cold and flu season approaching us, if you have any symptoms such as a cough, fever, chills, nausea, vomiting, diarrhea, and/or body aches, please call and reschedule your appointment in the Wound Center. OTHER EDUCATION by RN: Education performed regarding lymphedema/edema: Elevation of extremity above the heart for 30 minutes three times daily and as needed Exercise such as writing the ABC's with your toes in the air, walking and/or calf pumps Wearing compression as ordered by provider Diet controlling of sodium as instructed by provider Use of medication to help control edema. - UNIVERSAL PROTOCOL / SAFETY CHECKLIST N/a ___ Current HBOT Status: Active or Complete - see screening below WOUND CENTER HYPERBARIC OXYGEN THERAPY SCREENING 1. Is the patient diabetic? (If No, skip to question 5) Yes 2. Does the patient have a lower extremity wound? No 3. Is there exposed/involved tendon or bone? No 4. Has the wound been present for 30 days? Yes If Yes to ALL questions above, consult the Hyperbaric Center 5. Has the patient been diagnosed with (more content not included)... [facility] 36on 03-13-2025 36 Still need disc with images. Will need to review with Dr. Patel. Normal [facility] 36 Is it OK to get Pt scheduled for surgery? Please advise. [facility] 37on 03-07-2025 37 Need images from [facility] on disc brought to office for review in order for patient to have ureteral stent treatment at [facility]. Patient prefers [facility]. CT abdomen/pelvis 02/16/25 XR abdomen 02/16/25 and 02/17/25 Planning for ESWL vs laser litho w stent exchange. [facility] Office Visiton 03-07-2025 Follow-up visit [id number] Anmol Reynolds 1960 M Date Provider Department Center 03/07/2025 [id number] ROBERTSON [facility] URO None No family history on file Level of Service:00445 ND OFFICE/OUTPATIENT ESTABLISHED MOD MDM 30 MIN Reason for Visit and Comments: Nephrolithiasis [019260] [facility] Progress Noteon 03-07-2025 Progress Note Yoana Solitario APRN - DOCUMENT MANAGEMENT TECHNICIAN 03/07/2025 9:15 AM Urology Office Visit [facility] [address] [place] [address], [facility] [address] [facility] [id number] PATIENT NAME: Anmol Reynolds DATE OF : 1960 REFERRING PROVIDER: No ref. provider found PCP: Tab Dupont TODAY'S DATE: 03/07/2025 Visit type: Established patient HPI: Anmol is a 64 y.o. male who presents today with chief complaints of: Chief Complaint Patient presents with Nephrolithiasis 04/14/2024 underwent Cystoscopy pyelogram bilateral stent change Santana insertion with Dr Patel for fungus ball/stone in bladder 05/05/2024 underwent Cystoscopy pyelogram litholapaxy of large bladder stone left ureteroscopy with replacement of left stent, right stent change with Dr Patel Did not have any follow up for stent removal/exchange. Presented to OSH ER 02/16/25 unresponsive. Septic- culture w gram negative rods. Treated. Follow up outpatient with [facility] urology Patient is scheduled for surgery w Dr Maria on 03/20/25 however he prefers treatment at [facility] Will need images for surgery planning. 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 Medical History[1] Surgical History[2] Allergies[3] Physical Exam: BP 107/52 Pulse 68 Physical Exam Vitals reviewed. Constitutional: General: He is not in acute distress. Appearance: Normal appearance. He is normal weight. He is not ill-appearing. Pulmonary: Effort: Pulmonary effort is normal. Neurological: General: No focal deficit present. Mental Status: He is alert and oriented to person, place, and time. Psychiatric: Mood and Affect: Mood normal. Behavior: Behavior normal. Thought Content: Thought content normal. Judgment: Judgment normal. Pertinent Labs: CBC: Lab Results Component Value Date WBC 6.4 05/22/2024 HGB 12.8 (L) 05/22/2024 HCT 38.4 (L) 05/22/2024 MCV 91.2 05/22/2024 PLT 209 05/22/2024 CMP: Lab Results Component Value Date NA 135 05/22/2024 K 3.9 05/22/2024 CL 107 05/22/2024 CO2 22 05/22/2024 BUN 13 05/22/2024 CREATININE 0.54 (L) 05/22/2024 GLUCOSE 144 (H) 05/22/2024 ALT 22 05/22/2024 AST 25 05/22/2024 ALKPHOS 151 (H) 05/22/2024 Testosterone: No results found for: TESTOSTERONE PSA: No results found for: "PSA", PSATOTALIN Hemoglobin A1C: Lab Results Component Value Date HGBA1C 6.3 (H) 04/15/2024 Urinalysis: Lab Results Component Value Date COLORU Yellow 05/18/2024 CLARITYU Turbid (A) 05/18/2024 KETONESU Negative 05/18/2024 PROTUR 50 (A) 05/18/2024 UROBILINOGEN Normal 05/18/2024 Urine Culture: Lab Results Component Value Date URINECX >100,000 CFU/mL Proteus mirabilis (A) 05/18/2024 Imaging and results/record review: Imagin02/16/25 CT abdomen pelvis w contrast IMPRESSION: 1. Bilateral ureteral stents with the right proximal end coiled in a upper pole calyx and the left proximal end coiled in a upper pole calyx. The right and left distal ends are coiled in the urinary bladder. 2. Left kidney shows slight delayed nephrogram with mild to moderate hydronephrosis and mild left hydronephrosis. 3. Left renal stones with largest measuring 1.1 cm lower pole. No left ureteral stones. 4. Mild bilateral urothelial thickening and enhancement of the right and left renal pelvises left greater than right and the left ureter which could be of infectious or inflammatory etiology versus changes from a recently passed stone. 5. Urinary bladder is nondistended with indwelling Santana catheter and a couple small foci of nondependent gas. There is bladder wall thickening which could be related to decompressed state versus cystitis in the appropriate clinical setting, correlate for cystitis. 6. Enteric tube present with the tip above the gastroesophageal junction which needs advanced. 7. Wall thickening of the distal sigmoid colon and rectum suspicious for proctocolitis. 8. Details above. 9. Follow-up as indicated. [place] Supervisor: PSCB Transcribe Date/Time: Feb 16 2025 10:02P Dictated by : CORBIN PERRY MD This examination was interpreted and the report reviewed and electronically signed by: CORBIN PERRY MD on Feb 16 2025 10:34PM EST Narrative * * *Final Report* * * DATE OF EXAM: Feb 16 2025 8:33PM [facility] 0530 - CT ABD/PEL W IVCON / PROCEDURE REASON: Abdominal abscess/infection suspected * * * * Physician Interpretation * * * * EXAMINATION: CT ABDOMEN AND PELVIS WITH IV CONTRAST CLINICAL HISTORY: PATIENT/TECHNOLOGIST PROVIDED HISTORY: unresponsive, history of spinal cord injury CLINICAL INFORMATION ( PROVIDED BY ORDERING CLINICIAN) : Abdominal abscess/infection suspected TECHNIQUE: CT of the abdomen and pelvis was performed using standard technique, scanning from just above the dome of the diaphragm to the symphysis pubis. Coronal and sagittal (more content not included)... Normal [facility] Anion gap in Serum or Plasma Ordered By: Tab Dupont on 03-01-2025 Anion gap [Moles/Vol] 11 mmol/L 02-16 [facility] BUN/creatinine ratioOrdered By: Tab Dupont on 03-01-2025 Urea nitrogen/Creatinine [Mass ratio] 15.3 mg/mg 07-24 [facility] Basic Metabolic Profile (BMP )on 03-01-2025 BUN/CRE 15.3 RATIO Normal 07-24 [facility] Comment on above: Order Comment: 412-2 Performed By: #### L 500.2500, L100.0500 #### [facility] [address] [place], [address] Calcium [Mass/Vol] 8.5 mg/dL Normal 7.6-11.0 [facility] Comment on above: Order Comment: 412-2 Performed By: #### L 500.2500, L100.0500 #### [facility] [address] [place], [address] Chloride [Moles/Vol] 104 mmol/L Normal 98-108 [facility] Comment on above: Order Comment: 412-2 Performed By: #### L 500.2500, L100.0500 #### [facility] [address] [place], [address] CO2 [Moles/Vol] 21.8 mmol/L Normal 21.0-32.0 [facility] Comment on above: Order Comment: 412-2 Performed By: #### L 500.2500, L100.0500 #### [facility] [address] [place], [address] Creatinine [Mass/Vol] 0.59 mg/dL Low 0.70-1.20 [facility] Comment on above: Order Comment: 412-2 Performed By: #### L 500.2500, L100.0500 #### [facility] [address] [place], [address] GAP 11 Normal 02-16 [facility] Comment on above: Order Comment: 412-2 Performed By: #### L 500.2500, L100.0500 #### [facility] [address] [place], [address] GFR/1.73 sq M.predicted among non-blacks MDRD (S/P/Bld) [Vol rate/Area] 109 mL/min/{1.73_m2} Normal >60 [facility] Comment on above: Order Comment: 412-2 Result Comment: mL/m in/1.73m2 CKD-EPI Creatinine Equation (2020) Performed By: #### L 500.2500, L100.0500 #### [facility] [address] [place], [address] Glucose [Mass/Vol] 146 mg/dL High 70-99 [facility] Comment on above: Order Comment: 412-2 Performed By: #### L 500.2500, L100.0500 #### [facility] [address] [place], [address] Potassium [Moles/Vol] 4.0 mmol/L Normal 3.3-5.1 [facility] Comment on above: Order Comment: 412-2 Performed By: #### L 500.2500, L100.0500 #### [facility] [address] [place], [address] Sodium [Moles/Vol] 136 mmol/L Normal 133-145 [facility] Comment on above: Order Comment: 412-2 Performed By: #### L 500.2500, L100.0500 #### [facility] [address] [place], [address] Urea nitrogen [Mass/Vol] 9 mg/dL Normal 4-19 [facility] Comment on above: Order Comment: 412-2 Performed By: #### L 500.2500, L100.0500 #### [facility] [address] [place], [address] CBC-Complete Blood Cnt No Di ffon 03-01-2025 Erythrocyte distribution width (RBC) [Ratio] 15.4 % High 11.6-14.6 [facility] Comment on above: Order Comment: 412-2 Performed By: #### L 500.2500, L100.0500 #### [facility] [address] [place], [address] Hematocrit (Bld) [Volume fraction] 41.2 % Normal 40-54 [facility] Comment on above: Order Comment: 412-2 Performed By: #### L 500.2500, L100.0500 #### [facility] [address] [place], [address] Hemoglobin (Bld) [Mass/Vol] 12.9 g/dL Low 13.0-16.5 [facility] Comment on above: Order Comment: 412-2 Performed By: #### L 500.2500, L100.0500 #### [facility] [address] [place], [address] MCH (RBC) [Entitic mass] 29.5 pg Normal 27.0-32.0 [facility] Comment on above: Order Comment: 412-2 Performed By: #### L 500.2500, L100.0500 #### [facility] [address] [place], [address] MCHC (RBC) [Mass/Vol] 31.3 g/dL Low 32-36 [facility] Comment on above: Order Comment: 412-2 Performed By: #### L 500.2500, L100.0500 #### [facility] [address] [place], [address] MCV (RBC) [Entitic vol] 94.3 fL High 80-[address] [facility] Comment on above: Order Comment: 412-2 Performed By: #### L 500.2500, L100.0500 #### [facility] [address] [place], [address] Platelet mean volume (Bld) [Entitic vol] 11.6 fL Normal 6.2-12.0 [facility] Comment on above: Order Comment: 412-2 Performed By: #### L 500.2500, L100.0500 #### [facility] [address] [place], [address] Platelets (Bld) [#/Vol] 345 10*3/uL Normal 150-450 [facility] Comment on above: Order Comment: 412-2 Performed By: #### L 500.2500, L100.0500 #### [facility] [address] [place], [address] RBC (Bld) [#/Vol] 4.37 10*6/uL Low 4.6-6.2 [facility] Comment on above: Order Comment: 412-2 Performed By: #### L 500.2500, L100.0500 #### [facility] [address] [place], [address] RDW SD 52.4 fl High 35.1-43.9 [facility] Comment on above: Order Comment: 412-2 Performed By: #### L 500.2500, L100.0500 #### [facility] [address] [place], [address] WBC (Bld) [#/Vol] 7.6 10*3/uL Normal 4.4-11.0 [facility] Comment on above: Order Comment: 412-2 Performed By: #### L 500.2500, L100.0500 #### [facility] [address] [place], [address] Carbon dioxide, total [Moles /volume] in Central venous bloodOrdered By: Tab Dupont on 03-01-2025 CO2 [Moles/Vol] 21.8 mmol/L 21.0-32.0 [facility] Chloride assayOrdered By: Vinh Lehman on 03-01-2025 Chloride [Moles/Vol] 104 mmol/L 98-108 [facility] Erythrocyte distribution wid th ratioOrdered By: Tab Dupont on 03-01-2025 Erythrocyte distribution width (RBC) [Ratio] 15.4 % High 11.6-14.6 [facility] Erythrocyte distribution wid th standard deviationOrdered By: Tab Dupont on 03-01-2025 Erythrocyte distribution width (RBC) [Ratio] 52.4 fl High 35.1-43.9 [facility] Glomerular filtration rate ( GFR) estimation/1.73 sq m using serum, plasma, or whole bOrdered By: Tab Dupont on 03-01-2025 GFR/1.73 sq M.predicted among non-blacks MDRD (S/P/Bld) [Vol rate/Area] 109 mL/min/{1.73_m2} >60 [facility] Comment on above: mL/min/1.73m2 CKD-EP I Creatinine Equation (2020) Hematocrit Auto (Bld) [Volum e fraction]Ordered By: Tab Dupont on 03-01-2025 Hematocrit (Bld) [Volume fraction] 41.2 % 40-54 [facility] Hemoglobin measurementOrdere d By: Tab Dupont on 03-01-2025 Hemoglobin (Bld) [Mass/Vol] 12.9 g/dL Low 13.0-16.5 [facility] MCV (mean corpuscular volume ) determinationOrdered By: Tab Dupont on 03-01-2025 MCV (RBC) [Entitic vol] 94.3 fL High 80-[address] [facility] Mean corpuscular hemoglobin (MCH) determinationOrdered By: Tab Dupont on 03-01-2025 MCH (RBC) [Entitic mass] 29.5 pg 27.0-32.0 [facility] Mean corpuscular hemoglobin concentration (MCHC) determinationOrdered By: Tab Dupont on 03-01-2025 MCHC (RBC) [Mass/Vol] 31.3 g/dL Low 32-36 [facility] Mean platelet volume determi nationOrdered By: Tab Dupont on 03-01-2025 Platelet mean volume (Bld) [Entitic vol] 11.6 fL 6.2-12.0 [facility] Platelet countOrdered By: Vinh Lehman on 03-01-2025 Platelets (Bld) [#/Vol] 345 10*3/uL 150-450 [facility] Potassium measurement (mass/ volume)Ordered By: Tab Dupont on 03-01-2025 Potassium (Unsp spec) [Mass/Vol] 4.0 mmol/L 3.3-5.1 [facility] RBC Auto (Bld) [#/Vol]Ordere d By: Tab Dupont on 03-01-2025 RBC (Bld) [#/Vol] 4.37 10*6/uL Low 4.6-6.2 [facility] Serum creatinine measurement (mass/volume)Ordered By: Tab Dupont on 03-01-2025 Creatinine [Mass/Vol] 0.59 mg/dL Low 0.70-1.20 [facility] Serum glucose measurement (m ass/volume)Ordered By: Tab Dupont on 03-01-2025 Glucose [Mass/Vol] 146 mg/dL High 70-99 [facility] Serum or plasma calcium randall urement (mass/volume)Ordered By: Tab Dupont on 03-01-2025 Calcium [Mass/Vol] 8.5 mg/dL 7.6-11.0 [facility] Serum or plasma urea nitroge n measurement (mass/volume)Ordered By: Tab Dupont on 03-01-2025 Urea nitrogen [Mass/Vol] 9 mg/dL 4-19 [facility] Sodium levelOrdered By: Omar Dupont on 03-01-2025 Sodium [Moles/Vol] 136 mmol/L 133-145 [facility] White blood cell (WBC) count Ordered By: Tab Dupont on 03-01-2025 WBC (Bld) [#/Vol] 7.6 10*3/uL 4.4-11.0 [facility] CBC panel Auto (Bld)on 02-22 Erythrocyte distribution width (RBC) [Ratio] 14.8 % Normal 11.5-15.0 [facility] Comment on above: Order Comment: Speci men Type: BLOOD SPECIMENOrdering Facility: [facility] Address: [address] [place], [place] [address] Performed By: #### 5 8410-2 ####[facility] LABORATORYCLIA [id number] [address] Hematocrit (Bld) [Volume fraction] 33.6 % Low 39.0-51.0 [facility] Comment on above: Order Comment: Speci men Type: BLOOD SPECIMENOrdering Facility: [facility] Address: [address] [place] [address] Performed By: #### 5 8410-2 ####[facility] LABORATORYCLIA [id number] [address] [facility] Hemoglobin (Bld) [Mass/Vol] 10.6 g/dL Low 13.0-17.0 [facility] Comment on above: Order Comment: Speci men Type: BLOOD SPECIMENOrdering Facility: [facility] Address: [address] [place] [address] Performed By: #### 5 8410-2 ####[facility] LABORATORYCLIA [id number] [address] MCH (RBC) [Entitic mass] 30.0 pg Normal 26.0-34.0 [facility] Comment on above: Order Comment: Speci men Type: BLOOD SPECIMENOrdering Facility: [facility] Address: [address] [place] [address] Performed By: #### 5 8410-2 ####[facility] LABORATORYCLIA [id number] [address] [place] MCHC (RBC) [Mass/Vol] 31.5 g/dL Normal 30.5-36.0 [facility] Comment on above: Order Comment: Speci men Type: BLOOD SPECIMENOrdering Facility: [facility] Address: [address] [place] [address] Performed By: #### 5 8410-2 ####[facility] LABORATORYCLIA [id number] [address] MCV (RBC) [Entitic vol] 95.2 fL Normal 80.0-100.0 [facility] Comment on above: Order Comment: Speci men Type: BLOOD SPECIMENOrdering Facility: [facility] Address: [address] [place] [address] Performed By: #### 5 8410-2 ####[facility] LABORATORYCLIA [id number] [address] [place] Nucleated RBC (Bld) [#/Vol] 10*3/uL Normal <0.01 [facility] Comment on above: Order Comment: Speci men Type: BLOOD SPECIMENOrdering Facility: [facility] Address: [address] [place] [address] Performed By: #### 5 8410-2 ####[facility] LABORATORYCLIA [id number] [address] [place] Platelet mean volume (Bld) [Entitic vol] 11.5 fL Normal 9.0-12.7 [facility] Comment on above: Order Comment: Speci men Type: BLOOD SPECIMENOrdering Facility: [facility] Address: [address] [place] [address] Performed By: #### 5 8410-2 ####[facility] LABORATORYCLIA [id number] [address] [place] Platelets (Bld) [#/Vol] 153 10*3/uL Normal 150-400 [facility] Comment on above: Order Comment: Speci men Type: BLOOD SPECIMENOrdering Facility: [facility] Address: [address] [place] [address] Performed By: #### 5 8410-2 ####[facility] LABORATORYCLIA [id number] [address] [place] RBC (Bld) [#/Vol] 3.53 10*6/uL Low 4.20-6.00 [facility] Comment on above: Order Comment: Speci men Type: BLOOD SPECIMENOrdering Facility: [facility] Address: [address] [place] [address] Performed By: #### 5 8410-2 ####[facility] LABORATORYCLIA [id number] [address] [place] WBC (Bld) [#/Vol] 9.23 10*3/uL Normal 3.70-11.00 [facility] Comment on above: Order Comment: Speci men Type: BLOOD SPECIMENOrdering Facility: [facility] Address: [address] [place] [id number] Performed By: #### 5 8410-2 ####[facility] LABORATORYCLIA [id number] [place] [address] [facility] [place] CNDSon 02-22-2025 CNDS HNO ID: [id number] Author: CHUY PADILLA DO Service: Hospital Medicine Author Type: Physician Type: Discharge Summary Filed: 02/22/2025 14:39 Note Text: DISCHARGE SUMMARY PATIENT NAME: Anmol Given Code Status: Full Code Highest Readmission Risk Score: 19 The 30 day readmissions risk score is derived from an internally validated risk model which evaluates patient level characteristics, utilization history, medication orders and lab results up until the day of discharge. Patients with a score of 39 or above are considered highest risk for readmission. Specific patient level drivers will be listed at the bottom of the summary. Admission Information Admission Information ADMIT DATE: 02/16/2025 DISCHARGE DATE: 02/22/2025 MY DOCTORS AND MEDICAL TEAM: My Main Hospital Doctor: Chuy Padilla DO Primary Care Provider: No primary care provider on file. 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 The patient initially presented to the [facility] ED on February 16, 2025 after being found unresponsive at his SNF and was unable to protect his airway. Patient was intubated, started on Levophed and admitted to MICU for acute hypoxemic respiratory failure. CT showed hydronephrosis and culture was remarkable for gram-negative rods. patient was started on meropenem per Infectious disease recommendations. urology was consulted and recommended to follow-up with [facility] urology. patient was extubated on 02/17, and was started on amiodarone drip due to A-fib RVR. On 02/18, patient was transition from Levophed to midodrine. Blood pressure has been stable since switch to midodrine and dose to be tapered to discharge and can be further tapered off as outpatient if tolerates without. He was transferred to regular medical floor 02/20. Patient recommended transition to oral antibiotics per infectious disease team. Will need outpatient follow-up with urology. OTHER PROBLEMS/DIAGNOSIS: Principal Problem: Septic shock (HCC) Active Problems: Pyelitis Presence of indwelling Santana catheter Pressure injury of left buttock, unstageable (HCC) Gram negative septicemia (HCC) Bacteremia due to Enterococcus Fever, unspecified Leukocytosis Altered mental status Paraplegia (HCC) Proctocolitis Encounter for long-term (current) use of antibiotics Proteus mirabilis infection Resolved Problems: * No resolved hospital problems. * OPERATIONS PERFORMED WHILE IN THE HOSPITAL: None TEST RESULTS NOT AVAILABLE AT THIS TIME: No pending results Discharge Disposition Discharge Disposition: [facility] Facility - Less than 30 Days Activity When You Leave the Hospital Resume pre-hospital activity Diet Instructions Resume your pre-hospital diet For Pain When You Leave the Hospital Use acetaminophen (Tylenol) as recommended on the bottle Call Your Doctor If You have a severe headache You have lightheadedness, fainting, or confusion You have persistent nausea/vomiting over 24 hours You have persistent or heavy bleeding You have swollen glands or cold and clammy skin Your temperature is greater than 101F Follow Up Appointments Follow-Up Appointment Call to schedule follow-ups renal stones With: [facility] Urology When: In: Comment - PARI Patient/Parents to call for appointment?: Yes Follow-Up Appointment Follow-up hospitalization With: Your primary care provider When: In 1 week Patient/Parents to call for appointment?: Yes Follow-up Appointment Follow-up bacteremia When: In 2 weeks Patient/Parents to call for appointment?: Yes Gayle Scott MD [phone] [address] PCP Requested Referral Additional Provider to Provider Information: Treatment Team: Attending Provider: Chuy Padilla DO Consulting: Charlie Williamson MD Primary Service: [facility] Problems Diagnosis POA Septic shock (HCC) Yes Proteus mirabilis infection Unknown Pressure injury of left buttock, unstageable (HCC) Unknown Gram negative septicemia (HCC) Unknown Bacteremia due to Enterococcus Unknown Fever, unspecified Unknown Leukocytosis Unknown Altered mental status Unknown Paraplegia (HCC) Unknown Proctocolitis Unknown Encounter for long-term (current) us (more content not included)... Normal [facility] Comprehensive metabolic 2000 panelon 02-22-2025 Albumin [Mass/Vol] 2.2 g/dL Low 3.9-4.9 [facility] Comment on above: Order Comment: Speci men Type: BLOOD SPECIMENOrdering Facility: [facility] Address: [address] [place] [address] Performed By: #### 2 4323-8 ####[facility] LABORATORYCLIA [id number] [address] STATES OF [facility] ALP [Catalytic activity/Vol] 89 U/L Normal 38-113 [facility] Comment on above: Order Comment: Speci men Type: BLOOD SPECIMENOrdering Facility: [facility] Address: [address] [place] [address] Performed By: #### 2 4323-8 ####[facility] LABORATORYCLIA [id number] [address] STATES [place] ALT With P-5'-P [Catalytic activity/Vol] 12 U/L Normal 10-54 [facility] Comment on above: Order Comment: Speci men Type: BLOOD SPECIMENOrdering Facility: [facility] Address: [address] [place] [address] Performed By: #### 2 4323-8 ####[facility] LABORATORYCLIA [id number] [address] STATES [facility] Anion gap [Moles/Vol] 8 mmol/L Normal 8-15 [facility] Comment on above: Order Comment: Speci men Type: BLOOD SPECIMENOrdering Facility: [facility] Address: [address] [place] [address] Performed By: #### 2 4323-8 ####[facility] LABORATORYCLIA [id number] [place] [address] [place] AST With P-5'-P [Catalytic activity/Vol] 13 U/L Low 14-40 [facility] Comment on above: Order Comment: Speci men Type: BLOOD SPECIMENOrdering Facility: [facility] Address: [address] [place] [address] Performed By: #### 2 4323-8 ####[facility] LABORATORYCLIA [id number] [place] [address] [place] Bilirubin [Mass/Vol] 0.4 mg/dL Normal 0.2-1.3 [facility] Comment on above: Order Comment: Speci men Type: BLOOD SPECIMENOrdering Facility: [facility] Address: [address] [place] [address] Performed By: #### 2 4323-8 ####[facility] LABORATORYCLIA [id number] [place] [address] [place] Calcium [Mass/Vol] 7.7 mg/dL Low 8.5-10.2 [facility] Comment on above: Order Comment: Speci men Type: BLOOD SPECIMENOrdering Facility: [facility] Address: [address] [place] [address] Performed By: #### 2 4323-8 ####[facility] LABORATORYCLIA [id number] [place] [address] [place] Chloride [Moles/Vol] 108 mmol/L High 98-107 [facility] Comment on above: Order Comment: Speci men Type: BLOOD SPECIMENOrdering Facility: [facility] Address: [address] [place] [address] Performed By: #### 2 4323-8 ####[facility] LABORATORYCLIA [id number] [place] [address] [place] CO2 [Moles/Vol] 23 mmol/L Normal 22-30 [facility] Comment on above: Order Comment: Speci men Type: BLOOD SPECIMENOrdering Facility: [facility] Address: [address] [place] [address] Performed By: #### 2 4323-8 ####[facility] WAYNECLIA [id number] [place] [id number] [place] Creatinine [Mass/Vol] 0.60 mg/dL Low 0.73-1.22 [facility] Comment on above: Order Comment: Alvaroliliana valdez Type: BLOOD SPECIMENOrdering Facility: [facility] Address: [address] [place] [address] Performed By: #### 2 4323-8 ####[facility] WAYNECLIA [id number] [address] Creatinine and Glomerular filtration rate.predicted panel (S/P/Bld) 108 mL/min/1.73m??? Normal >=60 [facility] Comment on above: Order Comment: Jg courtney Type: BLOOD SPECIMENOrdering Facility: [facility] Address: [address] [place] [address] Result Comment: Leena mated Glomerular Filtration Rate (eGFR) is calculated using the 2020 CKD-EPI creatinine equation. This equation utilizes serum creatinine, sex, and age as parameters. The creatinine assay has traceable calibration to isotope dilution-mass spectrometry. Refer to KDIGO guidelines for clinical interpretation. In patients with unstable renal function, e.g. those with acute kidney injury, the eGFR may not accurately reflect actual GFR. Performed By: #### 2 4323-8 ####[facility] LABORATORYIA [id number] [address] [place] Glucose [Mass/Vol] 144 mg/dL High 74-99 [facility] Comment on above: Order Comment: Jg valdez Type: BLOOD SPECIMENOrdering Facility: [facility] Address: [address] [place] [address] Result Comment: The [place] [employer] (ADA) provides guidance for cutoff values for fasting glucose and random glucose. The ADA defines fasting as no caloric intake for at least 8 hours. Fasting plasma glucose results between 100 to 125 mg/dL indicate increased risk for diabetes (prediabetes). Fasting plasma glucose results greater than or equal to 126 mg/dL meet the criteria for diagnosis of diabetes. In the absence of unequivocal hyperglycemia, results should be confirmed by repeat testing. In a patient with classic symptoms of hyperglycemia or hyperglycemic crisis, random plasma glucose results greater than or equal to 200 mg/dL meet the criteria for diagnosis of diabetes. Reference: Standards of Medical Care in Diabetes 2016, [employer]. Diabetes Care. 2016.39(Suppl 1). Performed By: #### 2 4323-8 ####[facility] LABORATORYCLIA [id number] [place] [address] [place] Potassium [Moles/Vol] 3.9 mmol/L Normal 3.7-5.1 [facility] Comment on above: Order Comment: Speci courtney Type: BLOOD SPECIMENOrdering Facility: [facility] Address: [address] [place] [address] Performed By: #### 2 4323-8 ####[facility] LABORATORYCLIA [id number] [place] [address] [place] Protein [Mass/Vol] 5.7 g/dL Low 6.3-8.0 [facility] Comment on above: Order Comment: [place] courtney Type: BLOOD SPECIMENOrdering Facility: [facility] Address: [address] [place] [address] Performed By: #### 2 4323-8 ####[facility] LABORATORYCLIA [id number] [place] [address] [place] Sodium [Moles/Vol] 139 mmol/L Normal 136-144 [facility] Comment on above: Order Comment: Speci men Type: BLOOD SPECIMENOrdering Facility: [facility] Address: [address] [place] [address] Performed By: #### 2 4323-8 ####[facility] LABORATORYCLIA [id number] [place] [address] [place] Urea nitrogen [Mass/Vol] 14 mg/dL Normal 9-24 [facility] Comment on above: Order Comment: Speci men Type: BLOOD SPECIMENOrdering Facility: [facility] Address: [address] [place] [address] Performed By: #### 2 4323-8 ####[facility] LABORATORYCLIA [id number] [place] [address] [place] NURSING PROGon 02-22-2025 NURSING PROG HNO ID: [id number] Author: NAHUN GUNDERSON, RN Service: Nursing Author Type: Registered Nurse Type: Nursing Progress Note Filed: 02/22/2025 19:58 Note Text: Call to ALEXANDRA Adams at [facility] for report. Follow up appts AND new medications reviewed. Normal [facility] THERAPY NTon 02-22-2025 THERAPY NT HNO ID: [id number] Author: VICTORIANO BACA OTR/L Service: Occupational Therapy Author Type: Occupational Therapist Type: Therapy (PT/OT/Speech/Resp) Filed: 02/22/2025 15:00 Note Text: Occupational Therapy Evaluation Summary SERVICE DATE: 02/22/2025 SERVICE TIME: 1345 to 1403 ROOM: [place] [address] OT 6 Clicks Score: 16 DISCHARGE RECOMMENDATIONS ECF ASSESSMENT Response to Therapy Interventions: Good Participation in Activities PRECAUTIONS Fall Risk, Lines/Tubes/Drains Patient seen bedside, agreeable to OT. Pt is currently functioning at his baseline with ADLs. Pt demonstrates good upper extremity strength and able to complete UB self care tasks with setup. Pt declines need for theraband for UE exercises. Will d/c OT at this time. Recommend return to ECF at d/c. CURRENT HOSPITAL COURSE presented to ED after being found unresponsive--septic shock was managed in ICU; transferred to [facility] 02/20 Relevant Past Medical History: back injury and surgery in the past--then found to have epidural abscess--had another back sx in 2021--harware needed removed in January 2022 and then was paraplegic; has had issues with UTIs HOME LIVING Patient Lives With: Facility Care ([facility]) Assistance Available: 24-Hour Tub/Shower Type: sponge bath Laundry: staff does the laundry Equipment Owned: Wheelchair- Power PRIOR FUNCTIONAL LEVEL Required Assistance Assistance Required With: Wheelchair Mobility, Transportation, Shopping, Self Care, Safety, Medication Management, Meals, Laundry, Cleaning, Transfers Pt has assist with all ADLs and IADLs, everett lift to power w/c Baseline Cognition: Oriented to self, Oriented to place, Oriented to time, Oriented to situation SUBJECTIVE Pt seen bedside, agreeable to OT COGNITION Responsiveness: Alert Follows Commands: 3-step Commands THERAPY DIAGNOSIS No Skilled Need TREATMENT INTERVENTIONS Evaluation Skilled Treatment Time (minutes): 18 $ Evaluation - Low (62555) Billed Units: 1 unit TRAINING AND EDUCATION PROVIDED Bed Mobility, Discharge Planning, Expected Functional Level, Role of Occupational Therapy THERAPEUTIC SKILLS USED Activity Dosing, Cues for Sequencing/Proper Technique for Activity, Cuing Verbal, Physical Assist FUNCTIONAL STATUS Activities of Daily Living Assist Level Additional Information Feeding Independent Grooming Set Up Bathing Upper Body Set Up Bathing Lower Body Moderate Assistance Dressing Upper Body Set Up Dressing Lower Body Moderate Assistance Toileting Moderate Assistance Mobility Assist Level Additional Information Bed Mobility Rolling: Maximal Assistance Sit to Stand Stand to Sit Bed to Chair Toilet/Commode Shower Functional Mobility RANGE OF MOTION Upper Extremity Comments R Upper Extremity ROM Comments: WFL L Upper Extremity ROM Comments: WFL STRENGTH Right Upper Extremity Strength Comments: 5/5 Left Upper Extremity Strength Comments: 5/5 ACTIVITY TOLERANCE GOALS ACUTE CARE TREATMENT PLAN OT Frequency: Discontinue Therapy Services Reasons Therapy Services Discontinued: No skilled needs SIGNATURE: SCHUYLER Mares/Mina PATIENT NAME: Anmol Given DATE: February 22, 2025 TIME: 2:58 PM Normal [facility] THERAPY NT HNO ID: [id number] Author: FABRICIO GREENBERG PT Service: Physical Therapy Author Type: Physical Therapist Type: Therapy (PT/OT/Speech/Resp) Filed: 02/22/2025 11:54 Note Text: Physical Therapy Evaluation Summary SERVICE DATE: 02/22/2025 SERVICE TIME: 1120 to 1135 ROOM: [place] [address]- PT 6 Clicks Score: 7 DISCHARGE RECOMMENDATIONS ECF ASSESSMENT Response to Therapy Interventions: Multiple Ongoing Medical Issues pt tolerated bilat LE PROM--no c/o pain; able to complete roll with assist from PT with drawhseet PRECAUTIONS Fall Risk, Lines/Tubes/Drains CURRENT HOSPITAL COURSE presented to ED after being found unresponsive--septic shock was managed in ICU; transferred to [facility] 02/20 Relevant Past Medical History: back injury and surgery in the past--then found to have epidural abscess--had another back sx in 2021--harware needed removed in January 2022 and then was paraplegic; has had issues with UTIs HOME LIVING Patient Lives With: Facility Care ([facility]) Assistance Available: 24-Hour Equipment Owned: Wheelchair- Power (everett lift) PRIOR FUNCTIONAL LEVEL Required Assistance Assistance Required With: Transfers, Wheelchair Mobility, Self Care, Meals pt has been paraplegic since January 2022--no movement or sensation from waist down; has been at various ECFs--per pt he is everett lifted to power w/c daily and likes going outside SUBJECTIVE cooperative THERAPY DIAGNOSIS Reduced mobility-other TREATMENT INTERVENTIONS Evaluation Skilled Treatment Time (minutes): 15 $ Evaluation-Moderate (56951) Billed Units: 1 unit Completed PROM bilat LEs in supine position--see below grid for details Bed mobility as per grid TRAINING AND EDUCATION PROVIDED Benefits of In-Hospital Mobility, Role of Physical Therapy THERAPEUTIC SKILLS USED Assessment of Tolerance Including Vitals Response to Activity, Physical Assist, Movement Facilitation, Facilitation of Joint Range of Motion FUNCTIONAL STATUS Bed Mobility Rolling: Maximal Assistance, Additional Information pt able to reach for bed rail with UEs but needed to use drawsheet to roll trunk onto side Transfers Bed to Chair Gait Stairs Range of Motion: WFL (PROM WFL bilat LEs--DF to neutral; hip and knee flexion WFL, hip IR/ER WFL) Strength: Strength Limitation Comments Strength Limitation Comments: 0/5 all joints bilat LEs GOALS Return to ECF PARI ACUTE CARE TREATMENT PLAN PT Frequency: Discontinue Therapy Services Reasons Therapy Services Discontinued: No skilled needs (pt at baseline functioning--able to return to ECF with prior LOC) Treatment Interventions: Joint Mobility SIGNATURE: Fabricio Greenberg, PT PATIENT NAME: Anmol Given DATE: February 22, 2025 TIME: 11:53 AM Normal [facility] CBC panel Auto (Bld)on 02-21 Erythrocyte distribution width (RBC) [Ratio] 14.9 % Normal 11.5-15.0 [facility] Comment on above: Order Comment: Speci men Type: BLOOD SPECIMENOrdering Facility: [facility] Address: [address] [place] [address] Performed By: #### 5 8410-2 ####[facility] LABORATORYCLIA [id number] [address] Hematocrit (Bld) [Volume fraction] 38.6 % Low 39.0-51.0 [facility] Comment on above: Order Comment: Speci men Type: BLOOD SPECIMENOrdering Facility: [facility] Address: [address] [place] [address] Performed By: #### 5 8410-2 ####[facility] LABORATORYCLIA [id number] [address] OF [facility] Hemoglobin (Bld) [Mass/Vol] 12.3 g/dL Low 13.0-17.0 [facility] Comment on above: Order Comment: Speci men Type: BLOOD SPECIMENOrdering Facility: [facility] Address: [address] [place] [address] Performed By: #### 5 8410-2 ####[facility] LABORATORYCLIA [id number] [address] MCH (RBC) [Entitic mass] 29.9 pg Normal 26.0-34.0 [facility] Comment on above: Order Comment: Speci men Type: BLOOD SPECIMENOrdering Facility: [facility] Address: [address] [place] [address] Performed By: #### 5 8410-2 ####[facility] LABORATORYCLIA [id number] [address] [place] MCHC (RBC) [Mass/Vol] 31.9 g/dL Normal 30.5-36.0 [facility] Comment on above: Order Comment: Speci men Type: BLOOD SPECIMENOrdering Facility: [facility] Address: [address] [place] [address] Performed By: #### 5 8410-2 ####[facility] LABORATORYCLIA [id number] [address] MCV (RBC) [Entitic vol] 93.7 fL Normal 80.0-100.0 [facility] Comment on above: Order Comment: Speci men Type: BLOOD SPECIMENOrdering Facility: [facility] Address: [address] [place] [address] Performed By: #### 5 8410-2 ####[facility] LABORATORYCLIA [id number] [address] Nucleated RBC (Bld) [#/Vol] 10*3/uL Normal <0.01 [facility] Comment on above: Order Comment: Speci men Type: BLOOD SPECIMENOrdering Facility: [facility] Address: [address] [place] [address] Performed By: #### 5 8410-2 ####[facility] LABORATORYCLIA [id number] [address] OF [place] Platelet mean volume (Bld) [Entitic vol] 11.7 fL Normal 9.0-12.7 [facility] Comment on above: Order Comment: Speci men Type: BLOOD SPECIMENOrdering Facility: [facility] Address: [address] [place] [address] Performed By: #### 5 8410-2 ####[facility] LABORATORYCLIA [id number] [address] Platelets (Bld) [#/Vol] 134 10*3/uL Low 150-400 [facility] Comment on above: Order Comment: Speci men Type: BLOOD SPECIMENOrdering Facility: [facility] Address: [address] [place] [address] Result Comment: No c lot detected. Performed By: #### 5 8410-2 ####[facility] LABORATORYCLIA [id number] [address] RBC (Bld) [#/Vol] 4.12 10*6/uL Low 4.20-6.00 [facility] Comment on above: Order Comment: Speci men Type: BLOOD SPECIMENOrdering Facility: [facility] Address: [address] [place] [address] Performed By: #### 5 8410-2 ####[facility] LABORATORYCLIA [id number] [address] OF [place] WBC (Bld) [#/Vol] 9.99 10*3/uL Normal 3.70-11.00 [facility] Comment on above: Order Comment: Speci men Type: BLOOD SPECIMENOrdering Facility: [facility] Address: [address] [place] [address] Performed By: #### 5 8410-2 ####[facility] LABORATORYCLIA [id number] [place] [address] [place] CONSULT PROGon 02-21-2025 CONSULT PROG HNO ID: [id number] Author: ERIKA TEE APRN.DOCUMENT MANAGEMENT TECHNICIAN Service: Infectious Disease Author Type: Nurse Practitioner Type: Consult Progress Note Filed: 02/21/2025 15:32 Note Text: Summary: ID signing off PROGRESS NOTE INFECTIOUS DISEASE BRIEF SUMMARY: 64-year-old male past medical history chronic Santana catheter urinary retention/neurogenic bladder, paraplegia due to epidural abscess, diabetes mellitus type 2, bilateral hydronephrosis s/p ureteral stent placement in April 2024 presented to [facility] 02/16/2025 after being found unresponsive at [facility]. Urine and blood cultures with growth of multidrug-resistant organisms. CT showed hydronephrosis. Required admit to ICU for acute hypoxemic respiratory failure, pressor support. ASSESSMENT: 1. Septic shock POA, resolved 2. Polymicrobial bacteremia 2/2 #3 with same organisms -BCx (+) Citrobacter, ASE, Proteus mirabilis, procidentia 3. Complicated UTI, chronic Santana catheter, urinary retention/neurogenic bladder 4. MDR organisms 5. Fevers and leukocytosis POA, improved 6. Diabetes mellitus type 2 Estimated Creatinine Clearance: 155.6 mL/min (A) (based on SCr of 0.58 mg/dL (L)). RECOMMENDATIONS: - Continue Zosyn while inpatient. - Once medically ready for discharge switch to Amoxicillin 1gm TID + bactrim 1 DS tab BID + Cefdinir, through 03/02. - Patient remains stable from a Infectious Disease standpoint. We will sign off as we currently have no new recommendations at this time. Please call with any questions/concerns or if patient's condition worsens in any way. Subjective SUBJECTIVE: Interval Events: 02/21: Afebrile, WBC count within normal limits. Platelet 134. Creatinine 0.58. Patient tells me he is feeling well today. Denies fever/chills, nausea, vomiting or diarrhea, and No rash Active Antimicrobials (From admission, onward) Start Stop 02/20/25 1500 piperacillin-tazobact am iv piggyback 3.375 g in dextrose (iso-osmotic) 50 mL (ZOSYN) 3.375 g, INTRAVENOUS, EVERY 6 HOURS -- 02/17/25 1430 mupirocin 2 % 0.5 g nasal ointment (BACTROBAN) 0.5 g, NASAL, 2 TIMES DAILY 02/22/25 0859 Immunosuppressant: Midodrine Objective Medications: Current Facility-Administered Medications Medication Dose Route Frequency NaCl 0.9% iv flush bag 20 mL INTRAVENOUS PRN phentolamine injection 5 mg (REGITINE) Extravasation Antidote 5 mg SUBCUTANEOUS PRN tamsulosin 0.4 mg cap(s) (FLOMAX) 0.4 mg ORAL DAILY dextrose 15 gram/32 mL 15 g (TRUEPLUS) 15 g ORAL PRN Or glucagon 1 mg injection 1 mg INTRAMUSCULAR PRN Or dextrose 10% iv bolus 12.5 g INTRAVENOUS PRN aspirin 81 mg chewable tab(s) 81 mg ORAL/FEEDING TUBE DAILY polyethylene glycol 3350 17 g packet 17 g ORAL DAILY insulin glargine 20 Units pen (long acting) 20 Units SUBCUTANEOUS DAILY (8 AM) senna-docusate 8.6-50 mg 2 tablet (SENNA-S) 2 tablet ORAL BID pregabalin 200 mg cap(s) (LYRICA) 200 mg ORAL BID oxyCODONE IR 10-15 mg tab(s) (ROXICODONE) 10-15 mg ORAL q 6 H PRN cyclobenzaprine 10 mg tab(s) (FLEXERIL) 10 mg ORAL TID PRN ferrous sulfate 325 mg tab(s) 325 mg ORAL DAILY DULoxetine 30 mg cap(s) (CYMBALTA) 30 mg ORAL DAILY phenol 1 spray (CHLORASEPTIC) 1 spray MUCOUS MEMBRANE (TOPICAL MOUTH AND THROAT) q 2 H PRN Or benzocaine-menthol 1 lozenge (CEPACOL) 1 lozenge MUCOUS MEMBRANE (TOPICAL MOUTH AND THROAT) q 2 H PRN mupirocin 2 % 0.5 g nasal ointment (BACTROBAN) 0.5 g NASAL BID mirtazapine 7.5 mg (REMERON) 7.5 mg ORAL AT BEDTIME insulin lispro injection (rapid acting) (ADMElog) SUBCUTANEOUS w MEALS AND HS apixaban 5 mg tab(s) (ELIQUIS) 5 mg ORAL BID midodrine 20 mg tab(s) (PROAMATINE) 20 mg ORAL q 8 H piperacillin-tazobact am iv piggyback 3.375 g in dextrose (iso-osmotic) 50 mL (ZOSYN) 3.375 g INTRAVENOUS q 6 H OBJECTIVE: Physical Exam: BP 99/57 Pulse 75 Temp (Src) 98.1 (Oral) Resp 18 Ht 5' 11" (1.80m) Wt 216 lb 0.8 oz (98.0kg) SpO2 92% BMI 30.15 kg/(m2). O2 Therapy: Room Air Lines, Drains, and Airways Line Duration Peripheral 02/16/251922 [facility] Short Left Antecubital 18 Gauge 4 days Drain Duration Indwelling Urinary Catheter 02/16/252125 [facility] Coude 20 Fr 4 days Physical Exam: General appearance: Well appearing, alert, in no acute distress. Lungs: Lungs clear to auscultation. No wheezing, rhonchi, rales. Heart: No murmur Abdomen: Normal abdominal exam, Abdomen soft, non-tender. Bowel sounds normal. GI/: No nausea, vomiting or diarrhea Skin: No rash or lesions No joint inflammation. Santana cath in place with clear yellow urine. Lab data: WBC (k/uL) Date Value 02/21/2025 9.99 02/19/2025 9.94 02/18/2025 13.39 02/17/2025 14.96 02/17/2025 19.64 11/25/2021 13.30 09/06/2021 5.98 09/05/2021 6.76 09/04/2021 7.18 (more content not included)... Normal [facility] Comprehensive metabolic 2000 panelon 02-21-2025 Albumin [Mass/Vol] 2.5 g/dL Low 3.9-4.9 [facility] Comment on above: Order Comment: Speci men Type: BLOOD SPECIMENOrdering Facility: [facility] Address: [address] [place] [address] Performed By: #### 2 4323-8 ####[facility] LABORATORYCLIA [id number] [address] [place] ALP [Catalytic activity/Vol] 121 U/L High 38-113 [facility] Comment on above: Order Comment: Speci men Type: BLOOD SPECIMENOrdering Facility: [facility] Address: [address] [place] [address] Performed By: #### 2 4323-8 ####[facility] LABORATORYCLIA [id number] [place] [address] [place] ALT With P-5'-P [Catalytic activity/Vol] 15 U/L Normal 10-54 [facility] Comment on above: Order Comment: Speci men Type: BLOOD SPECIMENOrdering Facility: [facility] Address: [address] [place] [address] Performed By: #### 2 4323-8 ####[facility] LABORATORYCLIA [id number] [address] [place] Anion gap [Moles/Vol] 9 mmol/L Normal 8-15 [facility] Comment on above: Order Comment: Speci men Type: BLOOD SPECIMENOrdering Facility: [facility] Address: [address] [place] [address] Performed By: #### 2 4323-8 ####[facility] LABORATORYCLIA [id number] [place] [address] [place] AST With P-5'-P [Catalytic activity/Vol] 23 U/L Normal 14-40 [facility] Comment on above: Order Comment: Speci men Type: BLOOD SPECIMENOrdering Facility: [facility] Address: [address] [place] [address] Performed By: #### 2 4323-8 ####[facility] LABORATORYCLIA [id number] [place] [address] [place] Bilirubin [Mass/Vol] 0.8 mg/dL Normal 0.2-1.3 [facility] Comment on above: Order Comment: Speci men Type: BLOOD SPECIMENOrdering Facility: [facility] Address: [address] [place] [address] Performed By: #### 2 4323-8 ####[facility] LABORATORYCLIA [id number] [place] [address] [place] Calcium [Mass/Vol] 8.2 mg/dL Low 8.5-10.2 [facility] Comment on above: Order Comment: Speci men Type: BLOOD SPECIMENOrdering Facility: [facility] Address: [address] [place] [address] Performed By: #### 2 4323-8 ####[facility] LABORATORYCLIA [id number] [place] [address] [place] Chloride [Moles/Vol] 105 mmol/L Normal 98-107 [facility] Comment on above: Order Comment: Speci men Type: BLOOD SPECIMENOrdering Facility: [facility] Address: [address] [place] [address] Performed By: #### 2 4323-8 ####[facility] LABORATORYCLIA [id number] [place] [address] [place] CO2 [Moles/Vol] 21 mmol/L Low 22-30 [facility] Comment on above: Order Comment: Speci men Type: BLOOD SPECIMENOrdering Facility: [facility] Address: [address] [place] [address] Performed By: #### 2 4323-8 ####[facility] LABORATORYCLIA [id number] [place] [address] [place] Creatinine [Mass/Vol] 0.58 mg/dL Low 0.73-1.22 [facility] Comment on above: Order Comment: Jg valdez Type: BLOOD SPECIMENOrdering Facility: [facility] Address: [address] [place] [address] Performed By: #### 2 4323-8 ####[facility] FOR[facility] WAYNECLIA [id number] [place] [id number] [facility] Creatinine and Glomerular filtration rate.predicted panel (S/P/Bld) 110 mL/min/1.73m??? Normal >=60 [facility] Comment on above: Order Comment: Jg valdez Type: BLOOD SPECIMENOrdering Facility: [facility] Address: [address] [place] [address] Result Comment: Leena mated Glomerular Filtration Rate (eGFR) is calculated using the 2020 CKD-EPI creatinine equation. This equation utilizes serum creatinine, sex, and age as parameters. The creatinine assay has traceable calibration to isotope dilution-mass spectrometry. Refer to KDIGO guidelines for clinical interpretation. In patients with unstable renal function, e.g. those with acute kidney injury, the eGFR may not accurately reflect actual GFR. Performed By: #### 2 4323-8 ####[facility] LABORATORYCLIA [id number] [place] [id number] [place] Glucose [Mass/Vol] 162 mg/dL High 74-99 [facility] Comment on above: Order Comment: Jg valdez Type: BLOOD SPECIMENOrdering Facility: [facility] Address: [address] [place] [address] Result Comment: The [place] [employer] (ADA) provides guidance for cutoff values for fasting glucose and random glucose. The ADA defines fasting as no caloric intake for at least 8 hours. Fasting plasma glucose results between 100 to 125 mg/dL indicate increased risk for diabetes (prediabetes). Fasting plasma glucose results greater than or equal to 126 mg/dL meet the criteria for diagnosis of diabetes. In the absence of unequivocal hyperglycemia, results should be confirmed by repeat testing. In a patient with classic symptoms of hyperglycemia or hyperglycemic crisis, random plasma glucose results greater than or equal to 200 mg/dL meet the criteria for diagnosis of diabetes. Reference: Standards of Medical Care in Diabetes 2016, [employer]. Diabetes Care. 2016.39(Suppl 1). Performed By: #### 2 4323-8 ####[facility] LABORATORYCLIA [id number] [place] [address] [place] Potassium [Moles/Vol] 4.1 mmol/L Normal 3.7-5.1 [facility] Comment on above: Order Comment: Speci men Type: BLOOD SPECIMENOrdering Facility: [facility] Address: [address] [place] [address] Performed By: #### 2 4323-8 ####[facility] LABORATORYCLIA [id number] [place] [address] [place] Protein [Mass/Vol] 6.6 g/dL Normal 6.3-8.0 [facility] Comment on above: Order Comment: Speci men Type: BLOOD SPECIMENOrdering Facility: [facility] Address: [address] [place] [address] Performed By: #### 2 4323-8 ####[facility] LABORATORYCLIA [id number] [address] [place] Sodium [Moles/Vol] 135 mmol/L Low 136-144 [facility] Comment on above: Order Comment: Speci men Type: BLOOD SPECIMENOrdering Facility: [facility] Address: [address] [place] [address] Performed By: #### 2 4323-8 ####[facility] LABORATORYCLIA [id number] [address] [place] Urea nitrogen [Mass/Vol] 21 mg/dL Normal 9-24 [facility] Comment on above: Order Comment: Speci men Type: BLOOD SPECIMENOrdering Facility: [facility] Address: [address] [place] [address] Performed By: #### 2 4323-8 ####[facility] LABORATORYCLIA [id number] [address] OF [facility] Comprehensive metabolic 2000 panelon 02-20-2025 Albumin [Mass/Vol] 2.3 g/dL Low 3.9-4.9 [facility] Comment on above: Order Comment: Speci men Type: BLOOD SPECIMENOrdering Facility: [facility] Address: [address] [place] [address] Performed By: #### 2 4323-8 ####[facility] LABORATORYCLIA [id number] [address] [place] ALP [Catalytic activity/Vol] 107 U/L Normal 38-113 [facility] Comment on above: Order Comment: Speci men Type: BLOOD SPECIMENOrdering Facility: [facility] Address: [address] [place] [address] Performed By: #### 2 4323-8 ####[facility] LABORATORYCLIA [id number] [address] ALT With P-5'-P [Catalytic activity/Vol] 17 U/L Normal 10-54 [facility] Comment on above: Order Comment: Speci men Type: BLOOD SPECIMENOrdering Facility: [facility] Address: [address] [place] [address] Performed By: #### 2 4323-8 ####[facility] LABORATORYCLIA [id number] [address] Anion gap [Moles/Vol] 8 mmol/L Normal 8-15 [facility] Comment on above: Order Comment: Speci men Type: BLOOD SPECIMENOrdering Facility: [facility] Address: [address] [place] [address] Performed By: #### 2 4323-8 ####[facility] LABORATORYCLIA [id number] [address] [place] AST With P-5'-P [Catalytic activity/Vol] 22 U/L Normal 14-40 [facility] Comment on above: Order Comment: Speci men Type: BLOOD SPECIMENOrdering Facility: [facility] Address: [address] [place] [address] Performed By: #### 2 4323-8 ####[facility] LABORATORYCLIA [id number] [place] [address] [place] Bilirubin [Mass/Vol] 0.8 mg/dL Normal 0.2-1.3 [facility] Comment on above: Order Comment: Speci men Type: BLOOD SPECIMENOrdering Facility: [facility] Address: [address] [place] [address] Performed By: #### 2 4323-8 ####[facility] LABORATORYCLIA [id number] [place] [address] [place] Calcium [Mass/Vol] 7.7 mg/dL Low 8.5-10.2 [facility] Comment on above: Order Comment: Speci men Type: BLOOD SPECIMENOrdering Facility: [facility] Address: [address] [place] [address] Performed By: #### 2 4323-8 ####[facility] LABORATORYCLIA [id number] [place] [address] [place] Chloride [Moles/Vol] 110 mmol/L High 98-107 [facility] Comment on above: Order Comment: Speci men Type: BLOOD SPECIMENOrdering Facility: [facility] Address: [address] [place] [address] Performed By: #### 2 4323-8 ####[facility] LABORATORYCLIA [id number] [place] [address] [place] CO2 [Moles/Vol] 23 mmol/L Normal 22-30 [facility] Comment on above: Order Comment: Speci men Type: BLOOD SPECIMENOrdering Facility: [facility] Address: [address] [place] [address] Performed By: #### 2 4323-8 ####[facility] LABORATORYCLIA [id number] [place] [address] [place] Creatinine [Mass/Vol] 0.60 mg/dL Low 0.73-1.22 [facility] Comment on above: Order Comment: Speci men Type: BLOOD SPECIMENOrdering Facility: [facility] Address: [address] [place] [address] Performed By: #### 2 4323-8 ####[facility] POINTIA [id number] [address] [place] Creatinine and Glomerular filtration rate.predicted panel (S/P/Bld) 108 mL/min/1.73m??? Normal >=60 [facility] Comment on above: Order Comment: Jg men Type: BLOOD SPECIMENOrdering Facility: [facility] Address: [address] [place] [address] Result Comment: Leena mated Glomerular Filtration Rate (eGFR) is calculated using the 2020 CKD-EPI creatinine equation. This equation utilizes serum creatinine, sex, and age as parameters. The creatinine assay has traceable calibration to isotope dilution-mass spectrometry. Refer to KDIGO guidelines for clinical interpretation. In patients with unstable renal function, e.g. those with acute kidney injury, the eGFR may not accurately reflect actual GFR. Performed By: #### 2 4323-8 ####[facility] POINTIA [id number] [place] [address] [place] Glucose [Mass/Vol] 90 mg/dL Normal 74-99 [facility] Comment on above: Order Comment: Jg valdez Type: BLOOD SPECIMENOrdering Facility: [facility] Address: [address] [place] [address] Result Comment: The [place] [employer] (ADA) provides guidance for cutoff values for fasting glucose and random glucose. The ADA defines fasting as no caloric intake for at least 8 hours. Fasting plasma glucose results between 100 to 125 mg/dL indicate increased risk for diabetes (prediabetes). Fasting plasma glucose results greater than or equal to 126 mg/dL meet the criteria for diagnosis of diabetes. In the absence of unequivocal hyperglycemia, results should be confirmed by repeat testing. In a patient with classic symptoms of hyperglycemia or hyperglycemic crisis, random plasma glucose results greater than or equal to 200 mg/dL meet the criteria for diagnosis of diabetes. Reference: Standards of Medical Care in Diabetes 2016, [employer]. Diabetes Care. 2016.39(Suppl 1). Performed By: #### 2 4323-8 ####[facility] POINTIA [id number] [place] [address] [place] Potassium [Moles/Vol] 4.1 mmol/L Normal 3.7-5.1 [facility] Comment on above: Order Comment: Speci men Type: BLOOD SPECIMENOrdering Facility: [facility] Address: [address] [place] [address] Performed By: #### 2 4323-8 ####[facility] LABORATORYCLIA [id number] [place] [address] [place] Protein [Mass/Vol] 5.7 g/dL Low 6.3-8.0 [facility] Comment on above: Order Comment: Speci men Type: BLOOD SPECIMENOrdering Facility: [facility] Address: [address] [place] [address] Performed By: #### 2 4323-8 ####[facility] LABORATORYCLIA [id number] [address] [place] [facility] Sodium [Moles/Vol] 141 mmol/L Normal 136-144 [facility] Comment on above: Order Comment: Speci men Type: BLOOD SPECIMENOrdering Facility: [facility] Address: [address] [place] [address] Performed By: #### 2 4323-8 ####[facility] LABORATORYCLIA [id number] [address] [place] Urea nitrogen [Mass/Vol] 25 mg/dL High 9-24 [facility] Comment on above: Order Comment: Speci men Type: BLOOD SPECIMENOrdering Facility: [facility] Address: [address] [place] [address] Performed By: #### 2 4323-8 ####[facility] LABORATORYCLIA [id number] [address] [place] CBC panel Auto (Bld)on 02-19 Erythrocyte distribution width (RBC) [Ratio] 14.8 % Normal 11.5-15.0 [facility] Comment on above: Order Comment: Speci men Type: BLOOD SPECIMENOrdering Facility: [facility] Address: [address] [place] [address] Performed By: #### 5 8410-2 ####[facility] LABORATORYCLIA [id number] [address] OF [facility] Hematocrit (Bld) [Volume fraction] 32.5 % Low 39.0-51.0 [facility] Comment on above: Order Comment: Speci men Type: BLOOD SPECIMENOrdering Facility: [facility] Address: [address] [place] [address] Performed By: #### 5 8410-2 ####[facility] LABORATORYCLIA [id number] [address] OF [facility] Hemoglobin (Bld) [Mass/Vol] 11.1 g/dL Low 13.0-17.0 [facility] Comment on above: Order Comment: Speci men Type: BLOOD SPECIMENOrdering Facility: [facility] Address: [address] [place] [address] Performed By: #### 5 8410-2 ####[facility] LABORATORYCLIA [id number] [address] STATES OF [facility] MCH (RBC) [Entitic mass] 30.5 pg Normal 26.0-34.0 [facility] Comment on above: Order Comment: Speci men Type: BLOOD SPECIMENOrdering Facility: [facility] Address: [address] [place] [address] Performed By: #### 5 8410-2 ####[facility] LABORATORYCLIA [id number] [address] [place] MCHC (RBC) [Mass/Vol] 34.2 g/dL Normal 30.5-36.0 [facility] Comment on above: Order Comment: Speci men Type: BLOOD SPECIMENOrdering Facility: [facility] Address: [address] [place] [address] Performed By: #### 5 8410-2 ####[facility] LABORATORYCLIA [id number] [address] [place] MCV (RBC) [Entitic vol] 89.3 fL Normal 80.0-100.0 [facility] Comment on above: Order Comment: Speci men Type: BLOOD SPECIMENOrdering Facility: [facility] Address: [address] [place] [address] Performed By: #### 5 8410-2 ####[facility] LABORATORYCLIA [id number] [address] Nucleated RBC (Bld) [#/Vol] 10*3/uL Normal <0.01 [facility] Comment on above: Order Comment: Speci men Type: BLOOD SPECIMENOrdering Facility: [facility] Address: [address] [place] [address] Performed By: #### 5 8410-2 ####[facility] LABORATORYCLIA [id number] [address] Platelet mean volume (Bld) [Entitic vol] 11.8 fL Normal 9.0-12.7 [facility] Comment on above: Order Comment: Speci men Type: BLOOD SPECIMENOrdering Facility: [facility] Address: [address] [place] [address] Performed By: #### 5 8410-2 ####[facility] LABORATORYCLIA [id number] [address] Platelets (Bld) [#/Vol] 87 10*3/uL Low 150-400 [facility] Comment on above: Order Comment: Speci men Type: BLOOD SPECIMENOrdering Facility: [facility] Address: [address] [place] [address] Result Comment: No c lot detected. Performed By: #### 5 8410-2 ####[facility] LABORATORYCLIA [id number] [address] RBC (Bld) [#/Vol] 3.64 10*6/uL Low 4.20-6.00 [facility] Comment on above: Order Comment: Speci men Type: BLOOD SPECIMENOrdering Facility: [facility] Address: [address] [place] [address] Performed By: #### 5 8410-2 ####[facility] LABORATORYCLIA [id number] [place] [address] [place] WBC (Bld) [#/Vol] 9.94 10*3/uL Normal 3.70-11.00 [facility] Comment on above: Order Comment: Speci men Type: BLOOD SPECIMENOrdering Facility: [facility] Address: [facility] [place] [address] Performed By: #### 5 8410-2 ####[facility] LABORATORYCLIA [id number] [place] [address] [facility] [place] CNPNon 02-19-2025 CNPN Telephone ([facility]) ANMOL REYNOLDS ([id number]) 1960 M Date Time Provider Department 02/19/25 ANMOL HERBERT During your visit today, we recorded the following information about you: Anmol Herbert MD 02/19/2025 2:58 PM Signed Needs outpt cysto, pyelograms, bilateral stent change vs removal in 2-3 weeks. Comfort Sotelo 03/08/2025 10:16 AM Signed Patient is scheduled and care home was notified. Information was faxed. Comfort Sotelo Allergies As of Date: 02/19/2025 (No Known Allergies) Date Reviewed: 02/19/2025 Reviewed by: Belinda Orona, LIBRADO - Fully Assessed Reason for Visit: Hospital F/U [57] Prescriptions as of 03/08/2025 - apixaban (ELIQUIS) 5 mg tab(s) Take 1 tablet by mouth two times a day. - insulin glargine 100 unit/mL (3 mL) Inject 20 Units subcutaneously every morning. - insulin lispro 100 unit/mL injection Inject 0-15 Units subcutaneously with meals and at bedtime. ADMINISTER CORRECTIONAL INSULIN REGARDLESS OF MEAL OR NUTRITION INTAKE Scale 3 If Blood Glucose (mg/dL) is: Less than 110 Give 0 units 111-150 Give 1 unit 151-200 Give 3 units 201-250 Give 6 units 251-300 Give 9 units 301-350 Give 12 units 351-400 Give 15 units Greater than 400 Give 15 units and Notify Provider Notify provider if 2 consecutive blood glucose values in the previous 24 hours are greater than 250 mg/dL and there have been no changes to the insulin regimen in the previous 24 hours. - senna-docusate (SENNA-S) 8.6-50 mg per tablet Take 2 tablets by mouth two times a day. - midodrine (PROAMATINE) 10 mg tablet Take 1 tablet by mouth every 8 hours. - aspirin 81 mg chewable tablet 1 tablet by ORAL/FEEDING TUBE route once daily. - DULoxetine (CYMBALTA) 30 mg capsule Take 30 mg by mouth once daily. - polyethylene glycol 3350 17 gram packet Take 17 g by mouth once daily as needed for constipation. Dissolve dose in 4 - 8 ounces of liquid and take as directed. - Mirtazapine (REMERON) 7.5 mg tablet Take 7.5 mg by mouth daily at bedtime. - therapeutic multivitamin-minerals (THERA-M PLUS) 9 mg iron-400 mcg tablet Take 1 tablet by mouth once daily. - pregablin (LYRICA) 200 mg capsule Take 200 mg by mouth three times a day. - linaGLIPtin (TRADJENTA) 5 mg tab Take 5 mg by mouth once daily. - calcium carbonate (TUMS) 500 mg chew Take 500 mg by mouth every 8 hours as needed (heartburn). - ferrous sulfate 325 mg (65 mg iron) tablet Take 325 mg by mouth once daily. - oxyCODONE (ROXICODONE) 15 mg immediate release tablet Take 15 mg by mouth four times daily. - docusate sodium (COLACE) 100 mg capsule Take 1 capsule by mouth twice daily. - tamsulosin (FLOMAX) 0.4 mg Take 1 capsule by mouth once daily. - cyclobenzaprine (FLEXERIL) 10 mg tablet Take 1 tablet by mouth three times daily. Meds Comments as of 02/17/2025: Verified medications with [facility] 02/17/2025 Problem List As Of Date 02/19/2025 Noted Resolved NO SHOW [512504] 08/31/2013 05/29/2020 Perineal abscess [L02.215] 06/13/2019 05/29/2020 Nicotine use disorder, F17.2 [F17.200] 06/14/2019 Pilonidal cyst without abscess [L05.91] 05/29/2020 Pilonidal cyst with abscess [L05.01] 12/31/2020 Perirectal abscess [K61.1] 01/16/2021 08/21/2021 Type 2 diabetes mellitus with hyperglycemia, wi*01/18/2021 Abnormal weight loss [R63.4] 08/21/2021 Elevated hemoglobin A1c [R73.09] 08/21/2021 Elevated CA 19-9 level [R97.8] 08/21/2021 Elevated carcinoembryonic antigen (CEA) [R97.0] 08/21/2021 Weight loss [R63.4] 09/03/2021 Severe protein-calorie malnutrition (HCC) [E43] 09/04/2021 Ureteral calculi [N20.1] 11/25/2021 Complicated UTI (urinary tract infection) [N39.*11/26/2021 Chronic low back pain [M54.50, G89.29] 11/26/2021 Chronic pain of right ankle [M25.571, G89.29] 11/26/2021 Pyelitis [N12] 11/27/2021 MRSA bacteremia [R78.81, B95.62] 11/27/2021 Epidural abscess [G06.2] 01/04/2022 Vertebral osteomyelitis (HCC) [M46.20] 01/04/2022 Sacral osteomyelitis (HCC) [M46.28] 04/24/2023 Other hydronephrosis [N13.39] 04/24/2023 Neurogenic bladder [N31.9] 04/24/2023 Presence of indwelling Santana catheter [Z97.8] 04/24/2023 Pressure injury of coccygeal region, stage 3 (H*04/24/2023 Pressure injury of left knee, stage 2 (HCC) [L8*04/24/[address] scan, pelvis [R93.5] 04/24/2023 Gram-negative infection [A49.9] 04/24/2023 Counseling, unspecified [Z71.9] 04/24/2023 Enterococcus faecalis infection [A49.8] 04/28/2023 Klebsiella pneumoniae infection [A49.8] 04/28/2023 Gross hematuria [R31.0] 05/03/2023 Septic shock (HCC) [A41.9, R65.21] 02/17/2025 Pressure injury of left buttock, unstageable (H*02/17/2025 Gram negative septicemia (HCC) [A41.50] 02/17/2025 Gram positive septicemia (HCC) [A41.89] 02/17/2025 Fever, unspecified [R50.9] 02/17/2025 Leukocytosis [D72.829] 02/17/2025 Altered mental status [R41.82 (more content not included)... Normal [facility] Calcium.ionized [Moles/Vol]o n 02-19-2025 Calcium.ionized (BldV) [Mass/Vol] 1.03 mmol/L Low 1.08-1.30 [facility] Comment on above: Order Comment: Speci men Type: BLOOD SPECIMENOrdering Facility: [facility] Address: [address] [place] [address] Performed By: #### 1 995-0 ####[facility] LABORATORYCLIA [id number] [address] STATES OF [facility] Calcium.ionized adjusted to pH 7.4 (Bld) [Moles/Vol] 1.05 mmol/L Low 1.08-1.30 [facility] Comment on above: Order Comment: Speci men Type: BLOOD SPECIMENOrdering Facility: [facility] Address: [address] [place] [address] Performed By: #### 1 995-0 ####[facility] LABORATORYCLIA [id number] [place] [address] [place] Comprehensive metabolic 2000 panelon 02-19-2025 Albumin [Mass/Vol] 2.3 g/dL Low 3.9-4.9 [facility] Comment on above: Order Comment: Speci men Type: BLOOD SPECIMENOrdering Facility: [facility] Address: [address] [place] [address] Performed By: #### 2 4323-8 ####[facility] LABORATORYCLIA [id number] [address] STATES OF [facility] ALP [Catalytic activity/Vol] 112 U/L Normal 38-113 [facility] Comment on above: Order Comment: Speci men Type: BLOOD SPECIMENOrdering Facility: [facility] Address: [address] [place] [address] Performed By: #### 2 4323-8 ####[facility] LABORATORYCLIA [id number] [address] [place] ALT With P-5'-P [Catalytic activity/Vol] 21 U/L Normal 10-54 [facility] Comment on above: Order Comment: Speci men Type: BLOOD SPECIMENOrdering Facility: [facility] Address: [address] [place] [address] Performed By: #### 2 4323-8 ####[facility] LABORATORYCLIA [id number] [address] STATES OF [facility] Anion gap [Moles/Vol] 10 mmol/L Normal 8-15 [facility] Comment on above: Order Comment: Speci men Type: BLOOD SPECIMENOrdering Facility: [facility] Address: [address] [place] [address] Performed By: #### 2 4323-8 ####[facility] LABORATORYCLIA [id number] [address] [place] AST With P-5'-P [Catalytic activity/Vol] 25 U/L Normal 14-40 [facility] Comment on above: Order Comment: Speci men Type: BLOOD SPECIMENOrdering Facility: [facility] Address: [address] [place] [address] Performed By: #### 2 4323-8 ####[facility] LABORATORYCLIA [id number] [address] [place] Bilirubin [Mass/Vol] 0.5 mg/dL Normal 0.2-1.3 [facility] Comment on above: Order Comment: Speci men Type: BLOOD SPECIMENOrdering Facility: [facility] Address: [address] [place] [address] Performed By: #### 2 4323-8 ####[facility] LABORATORYCLIA [id number] [place] [address] [place] Calcium [Mass/Vol] 7.8 mg/dL Low 8.5-10.2 [facility] Comment on above: Order Comment: Speci men Type: BLOOD SPECIMENOrdering Facility: [facility] Address: [address] [place] [address] Performed By: #### 2 4323-8 ####[facility] LABORATORYCLIA [id number] [place] [address] [place] Chloride [Moles/Vol] 106 mmol/L Normal 98-107 [facility] Comment on above: Order Comment: Speci men Type: BLOOD SPECIMENOrdering Facility: [facility] Address: [address] [place] [address] Performed By: #### 2 4323-8 ####[facility] LABORATORYCLIA [id number] [place] [address] [place] CO2 [Moles/Vol] 21 mmol/L Low 22-30 [facility] Comment on above: Order Comment: Speci men Type: BLOOD SPECIMENOrdering Facility: [facility] Address: [address] [place] [address] Performed By: #### 2 4323-8 ####[facility] LABORATORYCLIA [id number] [place] [address] [place] Creatinine [Mass/Vol] 0.64 mg/dL Low 0.73-1.22 [facility] Comment on above: Order Comment: Speci men Type: BLOOD SPECIMENOrdering Facility: [facility] Address: [address] [place] [address] Performed By: #### 2 4323-8 ####[facility] LABORATORYCLIA [id number] [place] [address] [place] Creatinine and Glomerular filtration rate.predicted panel (S/P/Bld) 106 mL/min/1.73m??? Normal >=60 [facility] Comment on above: Order Comment: Jg valdez Type: BLOOD SPECIMENOrdering Facility: [facility] Address: [address] [place] [address] Result Comment: Leena mated Glomerular Filtration Rate (eGFR) is calculated using the 2020 CKD-EPI creatinine equation. This equation utilizes serum creatinine, sex, and age as parameters. The creatinine assay has traceable calibration to isotope dilution-mass spectrometry. Refer to KDIGO guidelines for clinical interpretation. In patients with unstable renal function, e.g. those with acute kidney injury, the eGFR may not accurately reflect actual GFR. Performed By: #### 2 4323-8 ####[facility] LABORATORYCLIA [id number] [place] [address] [place] Glucose [Mass/Vol] 115 mg/dL High 74-99 [facility] Comment on above: Order Comment: Jg valdze Type: BLOOD SPECIMENOrdering Facility: [facility] Address: [address] [place] [address] Result Comment: The [place] [employer] (ADA) provides guidance for cutoff values for fasting glucose and random glucose. The ADA defines fasting as no caloric intake for at least 8 hours. Fasting plasma glucose results between 100 to 125 mg/dL indicate increased risk for diabetes (prediabetes). Fasting plasma glucose results greater than or equal to 126 mg/dL meet the criteria for diagnosis of diabetes. In the absence of unequivocal hyperglycemia, results should be confirmed by repeat testing. In a patient with classic symptoms of hyperglycemia or hyperglycemic crisis, random plasma glucose results greater than or equal to 200 mg/dL meet the criteria for diagnosis of diabetes. Reference: Standards of Medical Care in Diabetes 2016, [employer]. Diabetes Care. 2016.39(Suppl 1). Performed By: #### 2 4323-8 ####[facility] LABORATORYCLIA [id number] [place] [id number] [place] Potassium [Moles/Vol] 3.7 mmol/L Normal 3.7-5.1 [facility] Comment on above: Order Comment: Jg valdez Type: BLOOD SPECIMENOrdering Facility: [facility] Address: [address] [place] [address] Performed By: #### 2 4323-8 ####[facility] LABORATORYCLIA [id number] [place] [address] [place] Protein [Mass/Vol] 5.5 g/dL Low 6.3-8.0 [facility] Comment on above: Order Comment: Speci men Type: BLOOD SPECIMENOrdering Facility: [facility] Address: [address] [place] [address] Performed By: #### 2 4323-8 ####[facility] LABORATORYCLIA [id number] [address] [place] Sodium [Moles/Vol] 137 mmol/L Normal 136-144 [facility] Comment on above: Order Comment: Speci men Type: BLOOD SPECIMENOrdering Facility: [facility] Address: [address] [place] [address] Performed By: #### 2 4323-8 ####[facility] LABORATORYCLIA [id number] [place] [address] [place] Urea nitrogen [Mass/Vol] 36 mg/dL High 9-24 [facility] Comment on above: Order Comment: Speci men Type: BLOOD SPECIMENOrdering Facility: [facility] Address: [address] [place] [address] Performed By: #### 2 4323-8 ####[facility] LABORATORYCLIA [id number] [address] [place] Urine Cultureon 02-19-2025 URC 412-25 Citrobacter freundii [place] Count 80,000-100,000 Providencia stuartii Providencia stuartii PMIR [place] Count >100,000 Proteus mirabilis [place] Count 25,000-50,000 Citrobacter freundii: REACTION Enterococcus faecalis cefTRIAXone Islt HARINDER <=0.25 Ciprofloxacin Islt HARINDER 1 R Gentamicin Islt HARINDER <=1 levoFLOXacin Islt HARINDER 1 I Meropenem Islt HARINDER <=0.25 S Nitrofurantoin Islt HARINDER <=16 S Pip+Tazo Islt HARINDER <=4 S TMP SMX Islt HARINDER <=20 S Providencia stuartii: REACTION Ampicillin Islt HARINDER >=32 R Ampicillin+Sulbac Islt HARINDER >=32 R Cefepime Islt HARINDER <=0.12 S cefTRIAXone Islt HARINDER 8 Ciprofloxacin Islt HARINDER >=4 R Gentamicin Islt HARINDER 8 R levoFLOXacin Islt HARINDER >=8 R Meropenem Islt HARINDER <=0.25 S Nitrofurantoin Islt HARINDER 256 R Pip+Tazo Islt HARINDER 8 S TMP SMX Islt HARINDER <=20 S Proteus mirabilis: REACTION Ampicillin Islt HARINDER <=2 S Ampicillin+Sulbac Islt HARINDER <=2 S Cefepime Islt HARINDER <=0.12 S cefTRIAXone Islt HARINDER <=0.25 Ciprofloxacin Islt HARINDER 1 R Gentamicin Islt HARINDER <=1 S levoFLOXacin Islt HARINDER 1 I Meropenem Islt HARINDER 0.5 S Nitrofurantoin Islt HARINDER R Pip+Tazo Islt HARINDER <=4 S TMP SMX Islt HARINDER <=20 S Enterococcus faecalis: REACTION Ampicillin Islt HARINDER <=2 S Ciprofloxacin Islt HARINDER >=8 R Gentamicin Synergy Susc Islt SYN-R R levoFLOXacin Islt HARINDER >=8 Linezolid Islt HARINDER 2 S Nitrofurantoin Islt HARINDER <=16 S Streptomycin High Pot Susc Islt SYN-S S Tetracycline Islt HARINDER >=16 R Vancomycin Islt HARINDER 1 S Normal [facility] Comment on above: Performed By: #### L 500.2500, L100.0500 #### [facility] [address] [facility] [place], [address] aPTT PPPon 02-19-2025 aPTT Coag (PPP) [Time] 68.5 s High 23.0-32.4 [facility] Comment on above: Order Comment: Speci men Type: BLOOD SPECIMENOrdering Facility: [facility] Address: [address] [place] [address] Performed By: #### 1 4979-9 ####[facility] LABORATORYCLIA [id number] [place] [address] [facility] [place] aPTT Coag (PPP) [Time] 71.1 s High 23.0-32.4 [facility] Comment on above: Order Comment: Speci men Type: BLOOD SPECIMENOrdering Facility: [facility] Address: [address] [place] [address] Performed By: #### 1 4979-9 ####[facility] LABORATORYCLIA [id number] [address] STATES OF [facility] CBC panel Auto (Bld)on 02-18 Erythrocyte distribution width (RBC) [Ratio] 14.9 % Normal 11.5-15.0 [facility] Comment on above: Order Comment: Speci men Type: BLOOD SPECIMENOrdering Facility: [facility] Address: [address] [place] [address] Performed By: #### 5 8410-2 ####[facility] LABORATORYCLIA [id number] [address] [place] Hematocrit (Bld) [Volume fraction] 33.9 % Low 39.0-51.0 [facility] Comment on above: Order Comment: Speci men Type: BLOOD SPECIMENOrdering Facility: [facility] Address: [address] [place] [address] Performed By: #### 5 8410-2 ####[facility] LABORATORYCLIA [id number] [address] [place] Hemoglobin (Bld) [Mass/Vol] 11.3 g/dL Low 13.0-17.0 [facility] Comment on above: Order Comment: Speci men Type: BLOOD SPECIMENOrdering Facility: [facility] Address: [address] [place] [address] Performed By: #### 5 8410-2 ####[facility] LABORATORYCLIA [id number] [address] STATES [facility] MCH (RBC) [Entitic mass] 30.3 pg Normal 26.0-34.0 [facility] Comment on above: Order Comment: Speci men Type: BLOOD SPECIMENOrdering Facility: [facility] Address: [address] [place] [address] Performed By: #### 5 8410-2 ####[facility] LABORATORYCLIA [id number] [address] MCHC (RBC) [Mass/Vol] 33.3 g/dL Normal 30.5-36.0 [facility] Comment on above: Order Comment: Speci men Type: BLOOD SPECIMENOrdering Facility: [facility] Address: [address] [place] [address] Performed By: #### 5 8410-2 ####[facility] LABORATORYCLIA [id number] [address] MCV (RBC) [Entitic vol] 90.9 fL Normal 80.0-100.0 [facility] Comment on above: Order Comment: Speci men Type: BLOOD SPECIMENOrdering Facility: [facility] Address: [address] [place] [address] Performed By: #### 5 8410-2 ####[facility] LABORATORYCLIA [id number] [address] Nucleated RBC (Bld) [#/Vol] 10*3/uL Normal <0.01 [facility] Comment on above: Order Comment: Speci men Type: BLOOD SPECIMENOrdering Facility: [facility] Address: [address] [place] [address] Performed By: #### 5 8410-2 ####[facility] LABORATORYCLIA [id number] [address] Platelet mean volume (Bld) [Entitic vol] 11.9 fL Normal 9.0-12.7 [facility] Comment on above: Order Comment: Speci men Type: BLOOD SPECIMENOrdering Facility: [facility] Address: [address] [place] [address] Performed By: #### 5 8410-2 ####[facility] LABORATORYCLIA [id number] [address] OF [place] Platelets (Bld) [#/Vol] 69 10*3/uL Low 150-400 [facility] Comment on above: Order Comment: Speci men Type: BLOOD SPECIMENOrdering Facility: [facility] Address: [address] [place] [address] Result Comment: No c lot detected. Performed By: #### 5 8410-2 ####[facility] LABORATORYCLIA [id number] [address] OF [facility] RBC (Bld) [#/Vol] 3.73 10*6/uL Low 4.20-6.00 [facility] Comment on above: Order Comment: Speci men Type: BLOOD SPECIMENOrdering Facility: [facility] Address: [address] [place] [address] Performed By: #### 5 8410-2 ####[facility] LABORATORYCLIA [id number] [address] WBC (Bld) [#/Vol] 13.39 10*3/uL High 3.70-11.00 [facility] Comment on above: Order Comment: Speci men Type: BLOOD SPECIMENOrdering Facility: [facility] Address: [address] [place] [address] Performed By: #### 5 8410-2 ####[facility] LABORATORYCLIA [id number] [address] CONSULT PROGon 02-18-2025 CONSULT PROG HNO ID: [id number] Author: TIMMY MARTINEZ RPh Service: Pharmacy Author Type: Pharmacist Type: Consult Progress Note Filed: 02/18/2025 11:29 Note Text: PHARMACY VANCOMYCIN DOSING NOTE Patient Name: Anmol Reynolds Admission Date: 02/16/2025 Date of Consult: 02/18/2025 Time of Consult: 11:29 AM RECOMMENDATIONS/PLAN: Pharmacy consulted for vancomycin dosing for Anmol Reynolds, a 64 year old male. Vancomycin therapy has been discontinued. Vancomycin level(s) have been discontinued: Yes. The pharmacy vancomycin dosing service will sign off. Thank you for allowing us to participate in this patient's care. Please contact pharmacy if there are questions. Timmy Martinez RPh [facility] CONSULT PROG HNO ID: [id number] Author: RADHA GRAHAM RPh Service: Pharmacy Author Type: Pharmacist Type: Consult Progress Note Filed: 02/18/2025 07:18 Note Text: PHARMACY PROGRESS NOTE Patient Name: Anmol Reynolds Admission Date: 02/16/2025 Date of Consult: 02/18/2025 Time of Consult: 7:17 AM In accordance with the pharmacy dose optimization service, the following medication changes/decisions have been made: Medication Current Regimen Dosing Assessment Indication Assessment/Plan Meropenem 1 gm Q12h Modify dosing to 1 gm Q8h infection (confirmed/suspected [empiric]) Order has been modified to standard dosing based on the patient's estimated renal function: CrCl 86.2 mL/min For medications which dose is dependent on renal function, a pharmacist will monitor renal function daily and adjust doses accordingly. Any dose adjustments needed based on changes in indication should be addressed by an LIP. If you have any questions, please contact Radha Graham at [phone]. Estimated Creatinine Clearance: 86.2 mL/min (based on SCr of 1.04 mg/dL). Serum creatinine and eGFR results 72 hours 02/18/2025 02/17/2025 02/16/2025 4:20 AM 2:25 AM 7:22 PM SCr (mg/dL) 1.04 1.90 2.35 eGFR (mL/min/1.73m2) 81 39 30 Allergies: ALLERGIES No Known Allergies Last 1 Encounter Wt Readings: Date: Wt: 02/16/2025 96.6 kg (212 lb 15.4 oz) Last 1 Encounter Ht Readings: Date: Ht: 02/16/2025 180.3 cm (5' 11") Radha Graham RPh February 18, 2025 7:17 AM Normal [facility] Calcium.ionized [Moles/Vol]o n 02-18-2025 Calcium.ionized (BldV) [Mass/Vol] 1.07 mmol/L Low 1.08-1.30 [facility] Comment on above: Order Comment: Speci men Type: BLOOD SPECIMENOrdering Facility: [facility] Address: [address] [place] [address] Performed By: #### 1 995-0 ####[facility] LABORATORYCLIA [id number] [address] Calcium.ionized adjusted to pH 7.4 (Bld) [Moles/Vol] 1.07 mmol/L Low 1.08-1.30 [facility] Comment on above: Order Comment: Speci men Type: BLOOD SPECIMENOrdering Facility: [facility] Address: [address] [place] [address] Performed By: #### 1 995-0 ####[facility] LABORATORYCLIA [id number] [address] Comprehensive metabolic 2000 panelon 02-18-2025 Albumin [Mass/Vol] 2.3 g/dL Low 3.9-4.9 [facility] Comment on above: Order Comment: Speci men Type: BLOOD SPECIMENOrdering Facility: [facility] Address: [address] [place] [address] Performed By: #### 2 4323-8, ####[facility] LABORATORYCLIA [id number] [address] [place] ALP [Catalytic activity/Vol] 115 U/L High 38-113 [facility] Comment on above: Order Comment: Speci men Type: BLOOD SPECIMENOrdering Facility: [facility] Address: [address] [place] [address] Performed By: #### 2 4323-8, ####[facility] LABORATORYCLIA [id number] [address] OF [place] ALT With P-5'-P [Catalytic activity/Vol] 25 U/L Normal 10-54 [facility] Comment on above: Order Comment: Speci men Type: BLOOD SPECIMENOrdering Facility: [facility] Address: [address] [place] [address] Performed By: #### 2 4323-8, ####[facility] LABORATORYCLIA [id number] [address] [place] Anion gap [Moles/Vol] 11 mmol/L Normal 8-15 [facility] Comment on above: Order Comment: Speci men Type: BLOOD SPECIMENOrdering Facility: [facility] Address: [address] [place] [address] Performed By: #### 2 4323-05, ####[facility] LABORATORYCLIA [id number] [place] [address] [place] AST With P-5'-P [Catalytic activity/Vol] 38 U/L Normal 14-40 [facility] Comment on above: Order Comment: Speci men Type: BLOOD SPECIMENOrdering Facility: [facility] Address: [address] [place] [address] Performed By: #### 2 4323-05, ####[facility] LABORATORYCLIA [id number] [place] [address] [place] Bilirubin [Mass/Vol] 0.6 mg/dL Normal 0.2-1.3 [facility] Comment on above: Order Comment: Speci men Type: BLOOD SPECIMENOrdering Facility: [facility] Address: [address] [place] [address] Performed By: #### 2 4323-05, ####[facility] LABORATORYCLIA [id number] [place] [address] [place] Calcium [Mass/Vol] 7.8 mg/dL Low 8.5-10.2 [facility] Comment on above: Order Comment: Speci men Type: BLOOD SPECIMENOrdering Facility: [facility] Address: [address] [place] [address] Performed By: #### 2 4323-05, ####[facility] LABORATORYCLIA [id number] [place] [address] [place] Chloride [Moles/Vol] 104 mmol/L Normal 98-107 [facility] Comment on above: Order Comment: Speci men Type: BLOOD SPECIMENOrdering Facility: [facility] Address: [address] [place] [address] Performed By: #### 2 4323-05, ####[facility] LABORATORYCLIA [id number] [place] [address] [place] CO2 [Moles/Vol] 20 mmol/L Low 22-30 [facility] Comment on above: Order Comment: Speci men Type: BLOOD SPECIMENOrdering Facility: [facility] Address: [address] [place] [address] Performed By: #### 2 4323-8, ####[facility] LABORATORYCLIA [id number] [place] [id number] [place] Creatinine [Mass/Vol] 1.04 mg/dL Normal 0.73-1.22 [facility] Comment on above: Order Comment: Speci men Type: BLOOD SPECIMENOrdering Facility: [facility] Address: [address] [place] [address] Performed By: #### 2 4323-8, ####[facility] FOR[facility] WAYNECLIA [id number] [address] Creatinine and Glomerular filtration rate.predicted panel (S/P/Bld) 81 mL/min/1.73m??? Normal >=60 [facility] Comment on above: Order Comment: Speci men Type: BLOOD SPECIMENOrdering Facility: [facility] Address: [address] [place] [address] Result Comment: Leena mated Glomerular Filtration Rate (eGFR) is calculated using the 2020 CKD-EPI creatinine equation. This equation utilizes serum creatinine, sex, and age as parameters. The creatinine assay has traceable calibration to isotope dilution-mass spectrometry. Refer to KDIGO guidelines for clinical interpretation. In patients with unstable renal function, e.g. those with acute kidney injury, the eGFR may not accurately reflect actual GFR. Performed By: #### 2 4323-8, ####[facility] LABORATORYCLIA [id number] [place] [id number] [place] Glucose [Mass/Vol] 177 mg/dL High 74-99 [facility] Comment on above: Order Comment: Speci men Type: BLOOD SPECIMENOrdering Facility: [facility] Address: [address] [place] [address] Result Comment: The [place] [employer] (ADA) provides guidance for cutoff values for fasting glucose and random glucose. The ADA defines fasting as no caloric intake for at least 8 hours. Fasting plasma glucose results between 100 to 125 mg/dL indicate increased risk for diabetes (prediabetes). Fasting plasma glucose results greater than or equal to 126 mg/dL meet the criteria for diagnosis of diabetes. In the absence of unequivocal hyperglycemia, results should be confirmed by repeat testing. In a patient with classic symptoms of hyperglycemia or hyperglycemic crisis, random plasma glucose results greater than or equal to 200 mg/dL meet the criteria for diagnosis of diabetes. Reference: Standards of Medical Care in Diabetes 2016, [employer]. Diabetes Care. 2016.39(Suppl 1). Performed By: #### 2 4323-05, ####[facility] LABORATORYCLIA [id number] [place] [address] [place] Potassium [Moles/Vol] 3.9 mmol/L Normal 3.7-5.1 [facility] Comment on above: Order Comment: Jg valdez Type: BLOOD SPECIMENOrdering Facility: [facility] Address: [address] [place] [address] Performed By: #### 2 4323-05, ####[facility] LABORATORYCLIA [id number] [place] [address] [place] Protein [Mass/Vol] 5.8 g/dL Low 6.3-8.0 [facility] Comment on above: Order Comment: Jg valdez Type: BLOOD SPECIMENOrdering Facility: [facility] Address: [address] [place] [address] Performed By: #### 2 4323-05, ####[facility] LABORATORYCLIA [id number] [place] [address] [place] Sodium [Moles/Vol] 135 mmol/L Low 136-144 [facility] Comment on above: Order Comment: Jg valdez Type: BLOOD SPECIMENOrdering Facility: [facility] Address: [address] [place] [address] Performed By: #### 2 4323-05, ####[facility] LABORATORYCLIA [id number] [place] [id number] [place] Urea nitrogen [Mass/Vol] 37 mg/dL High 9-24 [facility] Comment on above: Order Comment: Speci men Type: BLOOD SPECIMENOrdering Facility: [facility] Address: [address] [place] [address] Performed By: #### 2 4323-8, ####[facility] LABORATORYCLIA [id number] [place] [id number] [place] Magnesium SerPl-mCncon 02-18 Magnesium [Mass/Vol] 2.3 mg/dL Normal 1.7-2.3 [facility] Comment on above: Order Comment: Speci men Type: BLOOD SPECIMENOrdering Facility: [facility] Address: [address] [place] [address] Performed By: #### 2 4323-8, ####[facility] LABORATORYCLIA [id number] [place] [address] [place] aPTT PPPon 02-18-2025 aPTT Coag (PPP) [Time] 40.2 s High 23.0-32.4 [facility] Comment on above: Order Comment: Speci men Type: BLOOD SPECIMENOrdering Facility: [facility] Address: [address] [place] [address] Performed By: #### 1 4979-9 ####[facility] LABORATORYCLIA [id number] [place] [address] [place] aPTT Coag (PPP) [Time] 35.5 s High 23.0-32.4 [facility] Comment on above: Order Comment: Speci men Type: BLOOD SPECIMENOrdering Facility: [facility] Address: [address] [place] [address] Performed By: #### 1 4979-9 ####[facility] LABORATORYCLIA [id number] [place] [address] [place] aPTT Coag (PPP) [Time] 33.2 s High 23.0-32.4 [facility] Comment on above: Order Comment: Speci men Type: BLOOD SPECIMENOrdering Facility: [facility] Address: [address] [place], [place] [address] Performed By: #### 1 4979-9 ####[facility] LABORATORYCLIA [id number] [address] aPTT Coag (PPP) [Time] 51.0 s High 23.0-32.4 [facility] Comment on above: Order Comment: Speci men Type: BLOOD SPECIMENOrdering Facility: [facility] Address: [address] [place], [place] [address] Performed By: #### 1 4979-9 ####[facility] LABORATORYCLIA [id number] [place] [id number] [facility] ALLIED HEALTHon 02-17-2025 ALLIED HEALTH HNO ID: [id number] Author: JANEL SIMEON RT(Ector) Service: Radiology Author Type: Technologist Type: Allied Health Filed: 02/17/2025 07:58 Note Text: Radiology Service Progress Note PATIENT NAME: Anmol Reynolds DATE OF SERVICE: February 17, 2025 TIME: 7:57 AM PATIENT IDENTITY VERIFICATION COMPLETED USING TWO (2) IDENTIFIERS: Name and Date of confirmed by identification band. FALL SCREENING: Has the patient had 2 falls in the last year or 1 fall with injury or currently using an Ambulatory Assistive Device (Walker, Cane, Wheelchair, Crutches, etc.)? Inpatient: Screened on floor PATIENT GENDER DATA: Assigned male at PATIENT RELEVANT IMPLANT DATA REVIEWED: Not Applicable PATIENT PRESENTS WITH AN IMPLANTABLE OR ATTACHED APPOINTMENT CLERK: No RADIOLOGY DEPARTMENT: General X-ray: Exam(s) Completed: Abdomen X-Ray: Abdomen PERIPHERAL IV DATA: Not applicable SIGNED BY: RT Chelita(Ector) February 17, 2025 7:57 AM Normal [facility] Bacteria Spec Resp Culton Bacteria identified Respiratory culture Nom (Unsp spec) CULTURE, RESPIRATORY: Few Normal respiratory gosia present ORGANISM ID: 1 Rare Methicillin-RESISTANT Staphylococcus aureus (MRSA) GRAM STAIN: Few Mixed oral gosia Rare Polymorphonuclear leukocytes Few Epithelial cells ORGANISM ID: 1 (METHICILLIN RESISTANT STAPHYLOCOCCUS AUREUS) ------ ANTIBIOTIC INTERPRETATION HARINDER STATUS REFERENCE RANGE ------ Oxacillin R >2 F Susceptible <=2 , Intermediate >2 , Resistant >2 Oxacillin resistant Staphylococci are resistant to all beta-lactam antibiotics (except new cephalosporins with anti-MRSA activity i.e. ceftaroline) Gentamicin S <=2 F Susceptible <=4 , Intermediate >4 , Resistant >8 Erythromycin R >4 F Susceptible <=0.5 , Intermediate >.5 , Resistant >4 Clindamycin S <=0.5 F Susceptible <=0.5 , Intermediate >.5 , Resistant >2 This isolate does not demonstrate inducible Clindamycin resistance in vitro. Trimeth sulfameth R >4 F Vancomycin S 1 F Susceptible <=2 , Intermediate >2 , Resistant >=16 Linezolid S 1 F Susceptible <=4 , Intermediate >4 , Resistant >4 Rifampin S <=0.5 F Susceptible <=1 , Intermediate >1 , Resistant >2 Rifampin should not be used alone for antimicrobial therapy. Tetracycline R >8 F Susceptible <=4 , Intermediate >4 , Resistant >8 Abnormal [facility] Comment on above: Performed By: #### 3 2355-0 ####[facility] LABORATORYCLIA [id number] [place] [id number] [place] CBC panel Auto (Bld)on 02-17 Erythrocyte distribution width (RBC) [Ratio] 15.0 % Normal 11.5-15.0 [facility] Comment on above: Order Comment: Speci men Type: BLOOD SPECIMENOrdering Facility: [facility] Address: [address] [place] [address] Performed By: #### 5 8410-2 ####[facility] LABORATORYCLIA [id number] [address] STATES OF [facility] Hematocrit (Bld) [Volume fraction] 41.4 % Normal 39.0-51.0 [facility] Comment on above: Order Comment: Speci men Type: BLOOD SPECIMENOrdering Facility: [facility] Address: [address] [place] [address] Performed By: #### 5 8410-2 ####[facility] LABORATORYCLIA [id number] [address] [place] Hemoglobin (Bld) [Mass/Vol] 13.1 g/dL Normal 13.0-17.0 [facility] Comment on above: Order Comment: Speci men Type: BLOOD SPECIMENOrdering Facility: [facility] Address: [address] [place] [address] Performed By: #### 5 8410-2 ####[facility] LABORATORYCLIA [id number] [address] [place] MCH (RBC) [Entitic mass] 29.9 pg Normal 26.0-34.0 [facility] Comment on above: Order Comment: Speci men Type: BLOOD SPECIMENOrdering Facility: [facility] Address: [address] [place] [address] Performed By: #### 5 8410-2 ####[facility] LABORATORYCLIA [id number] [address] [place] MCHC (RBC) [Mass/Vol] 31.6 g/dL Normal 30.5-36.0 [facility] Comment on above: Order Comment: Speci men Type: BLOOD SPECIMENOrdering Facility: [facility] Address: [address] [place] [address] Performed By: #### 5 8410-2 ####[facility] LABORATORYCLIA [id number] [address] MCV (RBC) [Entitic vol] 94.5 fL Normal 80.0-100.0 [facility] Comment on above: Order Comment: Speci men Type: BLOOD SPECIMENOrdering Facility: [facility] Address: [address] [place] [address] Performed By: #### 5 8410-2 ####[facility] LABORATORYCLIA [id number] [address] OF [place] Nucleated RBC (Bld) [#/Vol] 10*3/uL Normal <0.01 [facility] Comment on above: Order Comment: Speci men Type: BLOOD SPECIMENOrdering Facility: [facility] Address: [address] [place] [address] Performed By: #### 5 8410-2 ####[facility] LABORATORYCLIA [id number] [address] [place] mean volume (Bld) [Entitic vol] 12.0 fL Normal 9.0-12.7 [facility] Comment on above: Order Comment: Speci men Type: BLOOD SPECIMENOrdering Facility: [facility] Address: [address] [place] [address] Performed By: #### 5 8410-2 ####[facility] LABORATORYCLIA [id number] [address] Platelets (Bld) [#/Vol] 64 10*3/uL Low 150-400 A [facility] Comment on above: Order Comment: Speci men Type: BLOOD SPECIMENOrdering Facility: [facility] Address: [address] [place] [address] Result Comment: No c lot detected. Performed By: #### 5 8410-2 ####[facility] LABORATORYCLIA [id number] [address] RBC (Bld) [#/Vol] 4.38 10*6/uL Normal 4.20-6.00 [facility] Comment on above: Order Comment: Speci men Type: BLOOD SPECIMENOrdering Facility: [facility] Address: [address] [place] [address] Performed By: #### 5 8410-2 ####[facility] LABORATORYCLIA [id number] [address] STATES OF [facility] WBC (Bld) [#/Vol] 14.96 10*3/uL High 3.70-11.00 [facility] Comment on above: Order Comment: Speci men Type: BLOOD SPECIMENOrdering Facility: [facility] Address: [address] [place] [address] Performed By: #### 5 8410-2 ####[facility] LABORATORYCLIA [id number] [address] Erythrocyte distribution width (RBC) [Ratio] 14.8 % Normal 11.5-15.0 [facility] Comment on above: Order Comment: Speci men Type: BLOOD SPECIMENOrdering Facility: [facility] Address: [address] [place] [address] Performed By: #### 5 8410-2 ####[facility] LABORATORYCLIA [id number] [address] Hematocrit (Bld) [Volume fraction] 36.6 % Low 39.0-51.0 [facility] Comment on above: Order Comment: Speci men Type: BLOOD SPECIMENOrdering Facility: [facility] Address: [address] [place] [address] Performed By: #### 5 8410-2 ####[facility] LABORATORYCLIA [id number] [address] Hemoglobin (Bld) [Mass/Vol] 11.9 g/dL Low 13.0-17.0 [facility] Comment on above: Order Comment: Speci men Type: BLOOD SPECIMENOrdering Facility: [facility] Address: [address] [place] [address] Performed By: #### 5 8410-2 ####[facility] LABORATORYCLIA [id number] [address] MCH (RBC) [Entitic mass] 30.1 pg Normal 26.0-34.0 [facility] Comment on above: Order Comment: Speci men Type: BLOOD SPECIMENOrdering Facility: [facility] Address: [address] [place] [address] Performed By: #### 5 8410-2 ####[facility] LABORATORYCLIA [id number] [address] STATES [facility] MCHC (RBC) [Mass/Vol] 32.5 g/dL Normal 30.5-36.0 [facility] Comment on above: Order Comment: Speci men Type: BLOOD SPECIMENOrdering Facility: [facility] Address: [address] [place] [address] Performed By: #### 5 8410-2 ####[facility] LABORATORYCLIA [id number] [address] OF [facility] MCV (RBC) [Entitic vol] 92.7 fL Normal 80.0-100.0 [facility] Comment on above: Order Comment: Speci men Type: BLOOD SPECIMENOrdering Facility: [facility] Address: [address] [place] [address] Performed By: #### 5 8410-2 ####[facility] LABORATORYCLIA [id number] [address] Nucleated RBC (Bld) [#/Vol] 10*3/uL Normal <0.01 [facility] Comment on above: Order Comment: Speci men Type: BLOOD SPECIMENOrdering Facility: [facility] Address: [address] [place] [address] Performed By: #### 5 8410-2 ####[facility] LABORATORYCLIA [id number] [address] [place] mean volume (Bld) [Entitic vol] 11.7 fL Normal 9.0-12.7 [facility] Comment on above: Order Comment: Speci men Type: BLOOD SPECIMENOrdering Facility: [facility] Address: [address] [place] [address] Performed By: #### 5 8410-2 ####[facility] LABORATORYCLIA [id number] [address] OF [facility] Platelets (Bld) [#/Vol] 93 10*3/uL Low 150-400 A [facility] Comment on above: Order Comment: Speci men Type: BLOOD SPECIMENOrdering Facility: [facility] Address: [address] [place] [address] Result Comment: No c lot detected. Performed By: #### 5 8410-2 ####[facility] LABORATORYCLIA [id number] [address] OF [facility] RBC (Bld) [#/Vol] 3.95 10*6/uL Low 4.20-6.00 [facility] Comment on above: Order Comment: Speci men Type: BLOOD SPECIMENOrdering Facility: [facility] Address: [address] [place] [address] Performed By: #### 5 8410-2 ####[facility] LABORATORYCLIA [id number] [address] WBC (Bld) [#/Vol] 19.64 10*3/uL High 3.70-11.00 [facility] Comment on above: Order Comment: Speci men Type: BLOOD SPECIMENOrdering Facility: [facility] Address: [address] [place] [address] Performed By: #### 5 8410-2 ####[facility] LABORATORYCLIA [id number] [address] CONSULTon 02-17-2025 CONSULT HNO ID: [id number] Author: GAYLE SCOTT MD Service: Infectious Disease Author Type: Physician Type: Consults Filed: 02/17/2025 15:37 Note Text: INITIAL CONSULT INFECTIOUS DISEASE SERVICE DATE: 02/17/2025 SERVICE TIME: 10:57 AM We were asked to evaluate Mr. Anmol Reynolds, a 64 year old yo male by Dr. BRYANT for UTI, history of ESBL Klebsiella, meropenem. Our findings and recommendations will be communicated through the shared medical record. ASSESSMENT: #-Septic shock with septicemia from gram-negative rods and strep/Enterococcus bacteria-suspect due to bilateral pyelitis with renal pelvis enhancement, stents, neurogenic bladder which could have had cystitis that ascended from his prior spinal cord injury. #-Presence of chronic Santana catheter due to urinary retention/neurogenic bladder issues #-Procto- sigmoid inflammation-cannot rule out constipation with features or actual infectious concern. #-High fever from the above #-Leukocytosis from the above #-Altered mental status improving #-Renal insufficiency antibiotic dosing #-Antibiotic monitoring-tolerates #-Discussed issues with patient and with his permission his daughter and how we will manage antibiotics waiting on cultures and further workup I have performed the following services under complex antimicrobial therapy counseling and treatment: Engaged in complex medical decision-making associated with antimicrobial prescribing. Counseling of patient and daughter RECOMMENDATIONS: - If urine matches blood will probably go with pyelitis. Not sure if proctocolitis is actual infection -DC vancomycin and continue meropenem Subjective SUBJECTIVE: HPI: 64 year old male , diabetes, history of vertebral osteomyelitis/epidura l abscess in January 2022 with MRSA bacteremia, history of ureteral stone in 2021 and UTI. Spinal cord injury residing at [facility], presented to [facility] 02/16/2025 for unresponsiveness when normally alert and oriented x 4. Arrived only arousable to pain unable to follow commands, nonrebreather, hypotensive, tachycardic. On their exam described as acute distress, ill-appearing, dry mucous membranes, tachycardia, hypotensive. Required intubation and ventilation in the ED, somewhat high lactate. Admitted to ICU service due to shock. Per ICU history patient had L2/L3 epidural abscess in January 2022 with underlying spinal stenosis, MRSA bacteremia ended up paraplegic. Also history of ESBL Klebsiella UTI. Chronic Santana catheter. In April 2024 bilateral hydronephrosis with ureteral stent placement. Imaging with chronic sacral osteomyelitis due to immobility. ICU listed in the septic shock from multiple sources including UTI, left upper lobe GGO for possible pneumonia, left lower lobe mucous plugging and possible postobstructive CAP. Chronic sacral osteomyelitis although that is usually pressure related. Today urology was consulted due to neurogenic bladder with chronic Santana, also for the urosepsis with bilateral ureteral stents and mild to moderate hydronephrosis and a 1.1 cm left renal stone. They noted the bilateral stents with mild left hydronephrosis with curling in the upper pole but recommended no acute surgical intervention. Once patient stable they would do bilateral retrograde stent removal. Patient is wide-awake and answering questions and states he was completely out of it when he woke up in the hospital and does not remember what happened. He gives permission for his daughter to be in the room and she states that although she was not at the care home she was called and told he was mentally out of it and ill so they brought him in. She did state that his urine was pretty cloudy. He has a chronic Santana catheter due to paraplegia and neurogenic bladder and she states it supposed to be changed every other week. She is not sure if it was. NKDA Active Antimicrobials (From admission, onward) Start Stop 02/17/25 0900 meropenem 2 g in NaCl 0.9% 100 mL (MERREM) 2 g, INTRAVENOUS, EVERY 12 HOURS 9AM/9PM -- 02/17/25 0300 vancomycin dosing and monitoring per pharmacy OTHER, DIRECTED -- Immunosuppressants: None known Current other medications reviewed. Current Facility-Administered Medications Medication Dose Route Frequency iv contrast (radiology procedure) INTRAVENOUS DIRECTED PRN NaCl 0.9% iv flush bag 20 mL INTRAVENOUS PRN iv contrast (radiology procedure) INTRAVENOUS DIRECTED PRN iv contrast (radiology procedure) INTRAVENOUS DIRECTED PRN NORepinephrine 16 mg in D5W 250 mL (LEVOPHED) 0.6-15 mcg/min INTRAVENOUS CONTINUOUS phentolamine injection 5 mg (REGITINE) Extravasation Antidote 5 mg SUBCUTANEOUS PRN mirtazapine 15 mg (REMERON) 15 mg ORAL AT BEDTIME tamsulosin 0.4 mg cap(s) (FLOMAX) 0.4 mg ORAL DAILY dextrose 15 gram/32 mL 15 g (TRUEPLUS) 15 g ORAL PRN Or glucagon 1 mg injection 1 mg INTRAMUSCULAR PRN Or dextrose 10% iv bolus 12.5 g (more content not included)... Normal [facility] CONSULT HNO ID: [id number] Author: ANMOL HERBERT MD Service: Urology Author Type: Resident Type: Consults Filed: 02/19/2025 14:56 Note Text: Attestation signed by Anmol Herbert MD at 02/19/2025 2:56 PM I saw and evaluated the patient. Discussed with the resident and agree with resident's findings and plan as documented in the resident's note. Reviewed [facility] hx and imaging. Currently improving. Discussed plan w/ ID (Dr. Scott) Plan on outpt cysto, pyelograms, stent change vs removal in 2-3 weeks. Anmol Herbert MD Urology Consult 02/16/2025 HISTORY OF PRESENT ILLNESS: The patient is a 64 year old male known to [facility] urology, with past medical history as listed below, including paraplegia, neurogenic bladder w/ chronic santana, who is here for septic shock. Urology consulted for urosepsis with bilateral ureteral stents coiling, mild to moderate hydronephrosis, 1.1 cm left renal stone. Patient intubated, sedated. On levo 7. Responds, answers questions. Has had stents since May. CT showing BL stents in place; L mild hydro with curl in upper pole, calculus vs fungus ball in lower pole; santana in place. Cultures pending. Urologic history Follows with Dr. Patel April 2024 - presented to ED w/ clogged santana; CT showing BL ureteral obstruction; BL stents placed d/t urosepsis May 2024 - L ureteroscopy normal, replaced stent due to manipulation w/ plan to remove at follow up surgery -no R ureteroscopy; large amount debris; R stent exchanged; plan for 2nd look on R with stent removal vs exch PAST MEDICAL HISTORY: PAST MEDICAL HISTORY Diagnosis Date Arthritis Chronic low back pain 11/26/2021 Chronic pain of right ankle 11/26/2021 Diabetes (HCC) Elevated CA 19-9 level 08/21/2021 Epidural abscess (HCC) 01/04/2022 MRSA bacteremia 11/27/2021 Neuropathy Nicotine use disorder, F17.2 06/14/2019 Pilonidal cyst with abscess 12/31/2020 Pilonidal cyst without abscess 05/29/2020 Pyelonephritis 11/27/2021 Sciatica Severe protein-calorie malnutrition (HCC) 09/04/2021 Type 2 diabetes mellitus with hyperglycemia, with long-term current use of insulin (HCC) 01/18/2021 Ureteral stone 11/25/2021 UTI (urinary tract infection) 11/26/2021 Vertebral osteomyelitis (HCC) 01/04/2022 PAST SURGICAL HISTORY: PAST SURGICAL HISTORY Procedure Laterality Date BACK SURGERY HX I AND D OF PERIANAL ABSCESS, SIMPLE 05/04/2020 in ER INC/DRAINAGE OF PERINEAL ABSCESS 06/13/[address] Franklin JOINT REPLACEMENT HX ankle surgery right ORTHOPEDICS SURGERY HX ALLERGIES: ALLERGIES No Known Allergies HOME MEDICATIONS: hyoscyamine sublingual (LEVSIN SL) 0.125 mg, Dissolve 1 tablet under the tongue every 8 hours as needed for up to 5 days., Disp: 15 tablet, Rfl: 0 mirtazapine (REMERON) 15 mg tablet, Take 1 tablet by mouth daily at bedtime., Disp: , Rfl: gabapentin (NEURONTIN) 300 mg capsule, Take 2 capsules by mouth three times daily for 180 days. (Patient not taking: Reported on 01/31/2025), Disp: 180 capsule, Rfl: 5 insulin glargine 100 unit/mL (3 mL), Inject 45 Units subcutaneously every morning., Disp: , Rfl: insulin lispro 100 unit/mL injection, Inject 8 Units subcutaneously w MEALS., Disp: , Rfl: insulin lispro 100 unit/mL injection, Inject 0-28 Units subcutaneously three times daily before meals. ADMINISTER CORRECTIONAL INSULIN REGARDLESS OF MEAL OR NUTRITION INTAKE Scale CUSTOM If Blood Glucose (mg/dL) is: Less than 110 Give 0 units 111-150 Give 0 units 151-200 Give 14 units 201-250 Give 18 units 251-300 Give 20 units 301-350 Give 22 units 351-400 Give 28 units Greater than 400 Give 28 units and Notify Provider Notify provider if 2 consecutive blood glucose values in the previous 24 hours are greater than 250 mg/dL and there have been no changes to the insulin regimen in the previous 24 hours., Disp: , Rfl: polyethylene glycol 3350 17 gram packet, Take 1 Packet by mouth twice daily. Dissolve dose in 4 - 8 ounces of liquid and take as directed. (Patient not taking: Reported on 01/31/2025), Disp: , Rfl: alogliptin benzoate (ALOGLIPTIN ORAL), Take 25 mg by mouth once daily., Disp: , Rfl: ASCORBIC ACID ORAL, Take 500 mg by mouth twice daily., Disp: , Rfl: ferrous sulfate 325 mg (65 mg iron) tablet, Take 325 mg by mouth once daily., Disp: , Rfl: oxycodone HCl (OXYCODONE ORAL), Take 15 mg by mouth three times daily., Disp: , Rfl: HYDROmorphone (DILAUDID) 4 mg tablet, Take 4 mg by mouth every 4 hours as needed for pain. (Patient not taking: Reported on 01/31/2025), Disp: , Rfl: bisacodyl EC (DULCOLAX) 5 mg EC tablet, Take 1 tablet by mouth twice daily., Disp: , Rfl: hydrOXYzine HCl (ATARAX) 25 mg tablet, Take 1 tablet by mouth every 6 hours as needed (Anxiety)., Disp: , Rfl: me (more content not included)... Normal [facility] CONSULT PROGon 02-17-2025 CONSULT PROG HNO ID: [id number] Author: JESSICA CLEMENT RPh Service: Pharmacy Author Type: Pharmacist Type: Consult Progress Note Filed: 02/17/2025 20:50 Note Text: PHARMACY VANCOMYCIN DOSING NOTE Patient Name: Anmol Reynolds Admission Date: 02/16/2025 Date of Consult: 02/17/2025 Time of Consult: 8:46 PM Indication: Source unknown; empiric Goal Range: 15-20 mcg/mL RECOMMENDATIONS/PLAN: Pharmacy consulted for vancomycin dosing for Anmol Reynolds, a 64 year old male. 1. Patient is currently ordered Vancomycin dosed by level. Today is day 2 of therapy. 2. The most recent vancomycin level was 6.1 mcg/mL drawn at 2009 on 02/17. This is a 22.5 hour level on the 2nd day of therapy. 3. Will schedule vancomycin to 2 g with a dosing interval of once. 4. The next vancomycin level has been ordered for 02/18/25 at 2000. (Completed) Scr still significantly above baseline so will keep DBL for now. Trough only 6.1 so will increase dose to 2g once. Of note, unclear if ID is recommending to d/c the vancomycin now or whether it is to be stopped once the culture results are finalized, will continued to dose vancomycin as consult active. We will follow patient renal function, vancomycin levels and doses with you during the course of therapy. Additional recommendations will appear in follow up notes. If you have any questions, [place] [phone]. Age: [age] year old Allergies: ALLERGIES No Known Allergies Last 3 Encounter Wt Readings: Date: Wt: 02/16/2025 95.2 kg (209 lb 14.1 oz) 05/02/2023 82.1 kg (181 lb) 04/23/2023 92.3 kg (203 lb 7.8 oz) Last 1 Encounter Ht Readings: Date: Ht: 02/16/2025 180.3 cm (5' 11") CrCl: 46.9 mL/min Temp (24hrs), Av.2 ?C (99 ?F), Min:36.4 ?C (97.5 ?F), Max:39.3 ?C (102.7 ?F) - Current Temp: 36.8 ?C (98.2 ?F) Labs BUN (mg/dL) Date Value 02/17/2025 34 (H) 02/16/2025 33 (H) 05/02/2023 13 Creatinine (mg/dL) Date Value 02/17/2025 1.90 (H) 02/16/2025 2.35 (H) 05/02/2023 0.53 (L) WBC (k/uL) Date Value 02/17/2025 14.96 (H) 02/17/2025 19.64 (H) 02/16/2025 10.29 Vancomycin Levels: Vancomycin, result (ug/mL) Date/Time Value 01/20/2021 0106 5.0 (L) Vancomycin (ug/mL) Date/Time Value 02/17/20252009 6.1 (L) 12/02/2021 1246 13.7 Jessica Clement RPh [facility] CONSULT PROG HNO ID: [id number] Author: YARI CAMARGO APRN.[facility] Service: Wound/Ostomy Author Type: Nurse Practitioner Type: Consult Progress Note Filed: 02/17/2025 10:33 Note Text: Summary: Inpatient Wound Care WOUND CARE SERVICE CONSULT [employer] NOTE SERVICE DATE: 02/17/2025 SERVICE TIME: 0809 am REASON FOR CONSULT: Wound Consult (From admission, onward) Start Ordered 02/17/25 0200 Wound Care Consult ONCE Electronically Signed By: Howard Gama MD [ ] 02/17/25 0157 Coccyx wound My final recommendations will be communicated back to the requesting physician by way of shared Medical record or letter to requesting physician via US mail. CHIEF COMPLAINT: buttocks Subjective HISTORY OF PRESENT ILLNESS: Mr. Reynolds is a 64 year old male who is seen today with Katlin Vasquez, Wound/auto self service station attendant, and presented to hospital with complaints of septic chock, altered mental status and failure to protect airway requiring intubation. Patient has past medica history of L2-L3 epidural abscess 01/14/22, laminectomy, T1DM, kenroy hydronephrosis s/p urinary stents in 04/27, and chronic sacral osteomyelitis. Patient goes to an outpatient Wound Center for care, but unable from notes to see which one. PERTINENT REVIEW OF SYSTEMS: Patient is currently intubated but not sedated. Able to communicate by shacking head and gesturing, however, unable to obtain a true ROS. PAST MEDICAL HISTORY Diagnosis Date Arthritis Chronic low back pain 11/26/2021 Chronic pain of right ankle 11/26/2021 Diabetes (HCC) Elevated CA 19-9 level 08/21/2021 Epidural abscess (HCC) 01/04/2022 MRSA bacteremia 11/27/2021 Neuropathy Nicotine use disorder, F17.2 06/14/2019 Pilonidal cyst with abscess 12/31/2020 Pilonidal cyst without abscess 05/29/2020 Pyelonephritis 11/27/2021 Sciatica Severe protein-calorie malnutrition (HCC) 09/04/2021 Type 2 diabetes mellitus with hyperglycemia, with long-term current use of insulin (HCC) 01/18/2021 Ureteral stone 11/25/2021 UTI (urinary tract infection) 11/26/2021 Vertebral osteomyelitis (HCC) 01/04/2022 PAST SURGICAL HISTORY Procedure Laterality Date BACK SURGERY HX I AND D OF PERIANAL ABSCESS, SIMPLE 05/04/2020 in ER INC/DRAINAGE OF PERINEAL ABSCESS 06/13/[address] Franklin JOINT REPLACEMENT HX ankle surgery right ORTHOPEDICS SURGERY HX Social History Tobacco Use Smoking status: Every Day Current packs/day: 1.00 Types: Cigarettes Smokeless tobacco: Never Vaping Use Vaping status: Never Used Substance Use Topics Alcohol use: No Drug use: Not Currently No family history on file. MEDICATIONS: Current Facility-Administered Medications Medication Dose Route Frequency iv contrast (radiology procedure) INTRAVENOUS DIRECTED PRN NaCl 0.9% iv flush bag 20 mL INTRAVENOUS PRN iv contrast (radiology procedure) INTRAVENOUS DIRECTED PRN iv contrast (radiology procedure) INTRAVENOUS DIRECTED PRN NORepinephrine 16 mg in D5W 250 mL (LEVOPHED) 0.6-15 mcg/min INTRAVENOUS CONTINUOUS phentolamine injection 5 mg (REGITINE) Extravasation Antidote 5 mg SUBCUTANEOUS PRN mirtazapine 15 mg (REMERON) 15 mg ORAL AT BEDTIME tamsulosin 0.4 mg cap(s) (FLOMAX) 0.4 mg ORAL DAILY dextrose 15 gram/32 mL 15 g (TRUEPLUS) 15 g ORAL PRN Or glucagon 1 mg injection 1 mg INTRAMUSCULAR PRN Or dextrose 10% iv bolus 12.5 g INTRAVENOUS PRN aspirin 81 mg chewable tab(s) 81 mg ORAL/FEEDING TUBE DAILY meropenem 2 g in NaCl 0.9% 100 mL (MERREM) 2 g INTRAVENOUS q 12 H /9p vancomycin dosing and monitoring per pharmacy OTHER As Directed sodium chloride 0.9 % (flush) 2-10 mL (BD POSIFLUSH) 2-10 mL INTRAVENOUS DIRECTED PRN And perflutren lipid microspheres 1.1 mg/mL 1.3 mL injection (DEFINITY) 1.3 mL INTRAVENOUS DIRECTED PRN heparin iv infusion 25,000 units in NaCl 0.45% 250 mL LOW DOSE/ACS NOMOGRAM 0-3,000 Units/hr INTRAVENOUS CONTINUOUS And heparin RATE CHANGE bolus 1,000-4,000 Units for subtherapeutic PTTAC results 1,000-4,000 Units INTRAVENOUS PRN heparin nomogram - NO INITIAL BOLUS OTHER ONCE (heparin bolus) polyethylene glycol 3350 17 g packet 17 g ORAL DAILY [START ON 02/18/2025] insulin glargine 20 Units pen (long acting) 20 Units SUBCUTANEOUS DAILY (8 AM) insulin glargine 8 Units pen (long acting) 8 Units SUBCUTANEOUS ONCE senna-docusate 8.6-50 mg 2 tablet (SENNA-S) 2 tablet ORAL BID insulin lispro injection (rapid acting) (ADMElog) SUBCUTANEOUS w MEALS AND HS amiodarone iv infusion 360 mg in D5W 200 mL (NEXTERONE) 1 mg/min INTRAVENOUS CONTINUOUS Followed by amiodarone iv infusion 360 mg in D5W 200 mL (NEXTERONE) 0.5 mg/min INTRAVENOUS CONTINUOUS pregabalin 200 mg cap(s) (LYRICA) 200 mg ORAL BID oxyCODONE IR 10-15 mg tab(s) (ROXICODONE) 10-15 mg ORAL q 6 H PRN cyc (more content not included)... Normal [facility] CONSULT PROG HNO ID: [id number] Author: RUBI RIVER RP Service: Pharmacy Author Type: Pharmacist Type: Consult Progress Note Filed: 02/17/2025 02:58 Note Text: PHARMACY VANCOMYCIN DOSING NOTE Patient Name: Anmol Reynolds Admission Date: 02/16/2025 Date of Consult: 02/17/2025 Time of Consult: 2:54 AM Indication: Source unknown; empiric Goal Range: 15-20 mcg/mL RECOMMENDATIONS/PLAN: Pharmacy consulted for vancomycin dosing for Anmol Reynolds, a 64 year old male. 1. Patient is currently ordered Vancomycin dosed by level. Today is day One of therapy. First dose of therapy given in ER @ 2138 on 02-16-2025 of Vancomycin 1.5 grams IV once. Patient currently in KM. 2. No vancomycin level has been drawn for this dosing regimen. 3. The present dose of vancomycin is the recommended dosage for this patient at this time. Continue therapy as prescribed. 4. The next vancomycin level has been ordered for 02-17-2025 @ 1999. (Completed) We will follow patient renal function, vancomycin levels and doses with you during the course of therapy. Additional recommendations will appear in follow up notes. If you have any questions[place] [phone]. Age: [age] year old Allergies: ALLERGIES No Known Allergies Last 3 Encounter Wt Readings: Date: Wt: 02/16/2025 95.6 kg (210 lb 12.2 oz) 05/02/2023 82.1 kg (181 lb) 04/23/2023 92.3 kg (203 lb 7.8 oz) Last 1 Encounter Ht Readings: Date: Ht: 02/16/2025 180.3 cm (5' 11") CrCl: 38 mL/min Temp (24hrs), Av.1 ?C (100.6 ?F), Min:37.7 ?C (99.9 ?F), Max:39.3 ?C (102.7 ?F) - Current Temp: 37.7 ?C (99.9 ?F) Labs BUN (mg/dL) Date Value 02/16/2025 33 (H) 05/02/2023 13 04/28/2023 10 Creatinine (mg/dL) Date Value 02/16/2025 2.35 (H) 05/02/2023 0.53 (L) 04/28/2023 0.54 (L) WBC (k/uL) Date Value 02/16/2025 10.29 05/02/2023 6.18 04/28/2023 5.32 Vancomycin Levels: Vancomycin, result (ug/mL) Date/Time Value 01/20/2021 0106 5.0 (L) Vancomycin (ug/mL) Date/Time Value 12/02/2021 1246 13.7 12/01/2021 0428 14.2 Rubi River RP Normal [facility] Comprehensive metabolic 2000 panelon 02-17-2025 Albumin [Mass/Vol] 2.5 g/dL Low 3.9-4.9 [facility] Comment on above: Order Comment: Speci men Type: BLOOD SPECIMENOrdering Facility: [facility] Address: [address] [place] [address] Performed By: #### 2 777-1, 41116-3 ####[facility] LABORATORYCLIA [id number] [address] STATES OF [facility] ALP [Catalytic activity/Vol] 174 U/L High 38-113 [facility] Comment on above: Order Comment: Speci men Type: BLOOD SPECIMENOrdering Facility: [facility] Address: [address] [place] [address] Performed By: #### 2 777-1, 59635-9 ####[facility] LABORATORYCLIA [id number] [address] STATES [place] [facility] ALT With P-5'-P [Catalytic activity/Vol] 21 U/L Normal 10-54 [facility] Comment on above: Order Comment: Speci men Type: BLOOD SPECIMENOrdering Facility: [facility] Address: [address] [place] [address] Performed By: #### 2 777-1, 54749-3 ####[facility] LABORATORYCLIA [id number] [address] [place] Anion gap [Moles/Vol] 11 mmol/L Normal 8-15 [facility] Comment on above: Order Comment: Speci men Type: BLOOD SPECIMENOrdering Facility: [facility] Address: [address] [place] [address] Performed By: #### 2 777-1, 86400-4 ####[facility] LABORATORYCLIA [id number] [address] [place] AST With P-5'-P [Catalytic activity/Vol] 41 U/L High 14-40 [facility] Comment on above: Order Comment: Speci men Type: BLOOD SPECIMENOrdering Facility: [facility] Address: [address] [place] [address] Performed By: #### 2 777-1, 44730-8 ####[facility] LABORATORYCLIA [id number] [place] [address] [place] Bilirubin [Mass/Vol] 0.9 mg/dL Normal 0.2-1.3 [facility] Comment on above: Order Comment: Speci men Type: BLOOD SPECIMENOrdering Facility: [facility] Address: [address] [place] [address] Performed By: #### 2 777-1, ####[facility] LABORATORYCLIA [id number] [place] [address] [place] Calcium [Mass/Vol] 8.2 mg/dL Low 8.5-10.2 [facility] Comment on above: Order Comment: Speci men Type: BLOOD SPECIMENOrdering Facility: [facility] Address: [address] [place] [address] Performed By: #### 2 777-1, 64828-3 ####[facility] LABORATORYCLIA [id number] [place] [address] [place] Chloride [Moles/Vol] 104 mmol/L Normal 98-107 [facility] Comment on above: Order Comment: Speci men Type: BLOOD SPECIMENOrdering Facility: [facility] Address: [address] [place] [address] Performed By: #### 2 777-1, 02215-8 ####[facility] LABORATORYCLIA [id number] [place] [address] [place] CO2 [Moles/Vol] 17 mmol/L Low 22-30 [facility] Comment on above: Order Comment: Speci men Type: BLOOD SPECIMENOrdering Facility: [facility] Address: [address] [place] [address] Performed By: #### 2 777-1, 37749-5 ####[facility] LABORATORYCLIA [id number] [place] [address] [place] Creatinine [Mass/Vol] 1.90 mg/dL High 0.73-1.22 [facility] Comment on above: Order Comment: Jg valdez Type: BLOOD SPECIMENOrdering Facility: [facility] Address: [address] [place] [address] Performed By: #### 2 777-1, 48921-4 ####[facility] LABORATORYCLIA [id number] [place] [address] [place] Creatinine and Glomerular filtration rate.predicted panel (S/P/Bld) 39 mL/min/1.73m??? Low >=60 [facility] Comment on above: Order Comment: Jg valdez Type: BLOOD SPECIMENOrdering Facility: [facility] Address: [address] [place] [address] Result Comment: Leena mated Glomerular Filtration Rate (eGFR) is calculated using the 2020 CKD-EPI creatinine equation. This equation utilizes serum creatinine, sex, and age as parameters. The creatinine assay has traceable calibration to isotope dilution-mass spectrometry. Refer to KDIGO guidelines for clinical interpretation. In patients with unstable renal function, e.g. those with acute kidney injury, the eGFR may not accurately reflect actual GFR. Performed By: #### 2 777-1, 33765-8 ####[facility] LABORATORYIA [id number] [place] [address] [place] Glucose [Mass/Vol] 225 mg/dL High 74-99 [facility] Comment on above: Order Comment: Jg valdez Type: BLOOD SPECIMENOrdering Facility: [facility] Address: [address] [place] [address] Result Comment: The [place] [employer] (ADA) provides guidance for cutoff values for fasting glucose and random glucose. The ADA defines fasting as no caloric intake for at least 8 hours. Fasting plasma glucose results between 100 to 125 mg/dL indicate increased risk for diabetes (prediabetes). Fasting plasma glucose results greater than or equal to 126 mg/dL meet the criteria for diagnosis of diabetes. In the absence of unequivocal hyperglycemia, results should be confirmed by repeat testing. In a patient with classic symptoms of hyperglycemia or hyperglycemic crisis, random plasma glucose results greater than or equal to 200 mg/dL meet the criteria for diagnosis of diabetes. Reference: Standards of Medical Care in Diabetes 2016, [employer] Association. Diabetes Care. 2016.39(Suppl 1). Performed By: #### 2 777-1, 91804-0 ####[facility] LABORATORYCLIA [id number] [address] [place] Potassium [Moles/Vol] 4.7 mmol/L Normal 3.7-5.1 [facility] Comment on above: Order Comment: Speci men Type: BLOOD SPECIMENOrdering Facility: [facility] Address: [address] [place] [address] Performed By: #### 2 777-1, 76055-1 ####[facility] LABORATORYCLIA [id number] [place] [address] [place] Protein [Mass/Vol] 6.0 g/dL Low 6.3-8.0 [facility] Comment on above: Order Comment: Speci men Type: BLOOD SPECIMENOrdering Facility: [facility] Address: [address] [place] [address] Performed By: #### 2 777-1, 53241-3 ####[facility] LABORATORYCLIA [id number] [address] [place] Sodium [Moles/Vol] 132 mmol/L Low 136-144 [facility] Comment on above: Order Comment: Speci men Type: BLOOD SPECIMENOrdering Facility: [facility] Address: [address] [place] [address] Performed By: #### 2 777-1, 21638-5 ####[facility] LABORATORYCLIA [id number] [address] [place] Urea nitrogen [Mass/Vol] 34 mg/dL High 9-24 [facility] Comment on above: Order Comment: Speci men Type: BLOOD SPECIMENOrdering Facility: [facility] Address: [address] [place] [address] Performed By: #### 2 777-1, 71181-1 ####[facility] LABORATORYCLIA [id number] [place] [address] [place] ECG COMPLETEon 02-17-2025 ECG COMPLETE Ventricular Rate : 152 BPM QRS Duration : 100 ms Q-T Interval : 300 ms QTC Calculation(Bazett) : 477 ms Calculated R [place] : 16 degrees Calculated T [place] : 7 degrees ATRIAL FIBRILLATION WITH RAPID VENTRICULAR RESPONSE NONSPECIFIC T WAVE ABNORMALITY ABNORMAL ECG WHEN COMPARED WITH ECG OF 16-Feb-2025 19:16, ATRIAL FIBRILLATION HAS REPLACED SINUS RHYTHM NONSPECIFIC T WAVE ABNORMALITY NOW EVIDENT IN INFERIOR LEADS Confirmed by MANISHA ANDERSEN MD ([id number]) on 02/17/2025 9:11:43 AM NAME : ANMOL REYNOLDS PID : [id number] : 1960 Gender : Male Race : ORD : [id number] Procedure Date : Feb 17 2025 07:55:31 Edit Date : Feb 17 2025 09:11:44 Diagnosis: ATRIAL FIBRILLATION WITH RAPID VENTRICULAR RESPONSE NONSPECIFIC T WAVE ABNORMALITY ABNORMAL ECG WHEN COMPARED WITH ECG OF 16-Feb-2025 19:16, ATRIAL FIBRILLATION HAS REPLACED SINUS RHYTHM NONSPECIFIC T WAVE ABNORMALITY NOW EVIDENT IN INFERIOR LEADS Confirmed by MANISHA ANDERSEN MD ([id number]) on 02/17/2025 9:11:43 AM Test Reason : Arrhythmia Location : [address] : [place] [address] Overread By : MANISHA ANDERSEN MD Edited By : MANISHA ADNERSEN MD Referred By : , Acquired by : SANDHYA ABURTO [facility] ECHOon 02-17-2025 Echocardiography Echocardiography Report: Transthoracic Echo [facility] Date of service: 02/17/2025 10:58:00 AM [facility] Ordering physician: JON MCDONALD Indication: Sustained atrial fibrillation Technologist: Marie Magana [facility] Interpreting physician: Naresh Yo MD PATIENT: Name: ANMOL REYNOLDS : 1960 Age: 64 years Gender: M History of diabetes mellitus, smoking, PFO and arrhythmia. Primary rhythm: atrial fib. Height: 180.30 cm BSA: 2.18 m Weight: 95.20 kg BMI: 29.3 kg/m Heart rate 129 bpm Blood pressure 118/102 mmHg Technically difficult exam due to supine. Color Doppler was utilized to interrogate the cardiac valves assessed and spectral Doppler was utilized to determine the flow velocities and pressure gradients reported in this exam. MEASUREMENTS: Value Indexed Normal Max aortic dimension 3.4 cm Ao < 3.8 LV ID (diastole) 4.1 cm (2D) 1.88 cm/m LV ID (systole) 3.1 cm (2D) 1.41 cm/m IVS, leaflet tips 0.9 cm (2D) Posterior wall thickness 0.9 cm (2D) Left ventricular mass 115 g (2D) 53 g/m Ejection Fraction 45 % (visual est.) EF > 52 FINDINGS: LEFT VENTRICLE The left ventricle is normal in size. There is no left ventricular hypertrophy. Left ventricular systolic function is mildly decreased regionally. Indeterminate left ventricular diastolic function due to E/A fusion and AF. Definity contrast used for endocardial border detection. Wall Motion: The inferior septum and apex are severely hypokinetic. The entire anterior wall, anterolateral wall, anterior septum, entire inferior wall, and apical lateral segment are mildly hypokinetic. All remaining scored segments are normal. RIGHT VENTRICLE The right ventricle is mildly dilated. Right ventricular systolic function is low normal. Estimated right ventricular systolic pressure is likely underestimated due to a weak or incomplete tricuspid regurgitation signal and is, at least, 31 mmHg consistent with normal pulmonary artery pressures. Estimated right atrial pressure is 15 mmHg based on IVC assessment. LEFT ATRIUM The left atrial cavity is normal in size. RIGHT ATRIUM Unable to reliably measure RA volume due to technical limitations. Inferior Vena Cava: The inferior vena cava appears dilated measuring 2.2 cm. The vessel decreases less than 50 percent with inspiration. MITRAL VALVE The mitral valve leaflets are structurally normal. There is no mitral valve regurgitation. TRICUSPID VALVE The tricuspid valve leaflets are structurally normal. There is trace tricuspid valve regurgitation. AORTIC VALVE The aortic valve cusps are structurally normal. There is no aortic valve regurgitation. Tricuspid aortic valve. PULMONIC VALVE The pulmonic valve cusps are structurally normal. There is trace pulmonic valve regurgitation. AORTA The visualized aorta is normal in size. Measurements - Sinus: 3.4 cm. Mid ascending aorta 3.0 cm. PULMONARY ARTERIES The pulmonary arteries are unseen or not interrogated. INTERATRIAL SEPTUM There is no evidence of intracardiac shunting as detected by Doppler. INTERVENTRICULAR SEPTUM There is abnormal motion of the interventricular septum secondary to abnormal conduction. PERICARDIUM There is no pericardial effusion. CONCLUSIONS: - Technically difficult exam due to supine. - Exam indication: Sustained atrial fibrillation - The left ventricle is normal in size. There is no left ventricular hypertrophy. Left ventricular systolic function is mildly decreased. EF = 45 5% (visual est.) Definity contrast used for endocardial border detection. Indeterminate left ventricular diastolic function due to E/A fusion and AF. - The right ventricle is mildly dilated. Right ventricular systolic function is low normal. - There are no significant valvular abnormalities. - Exam was compared with the prior echocardiographic exam performed on 01/23/2022. LV wall motion abnormalities seen on today's exam. * * * Final * * * CC [facility] Image : [id number] amicsSISUID Normal [facility] Gas and Carbon monoxide pane l (BldV)on 02-17-2025 BASE DEFICIT, VENOUS -7 mmol/L Low -2-0 [facility] Comment on above: Order Comment: Speci men Type: VENOUS BLOOD SPECIMENOrdering Facility: [facility] Address: [address] [place] [address] Performed By: #### 2 4344-4 ####[facility] LABORATORYCLIA [id number] [address] [place] Body temperature 99.86 [degF] Normal [facility] Comment on above: Order Comment: [place] men Type: VENOUS BLOOD SPECIMENOrdering Facility: [facility] Address: [address] [place] [address] Performed By: #### 2 4344-4 ####[facility] LABORATORYCLIA [id number] [address] [place] Calcium.ionized (BldV) [Mass/Vol] 1.17 mmol/L Normal 1.08-1.30 [facility] Comment on above: Order Comment: Speci men Type: VENOUS BLOOD SPECIMENOrdering Facility: [facility] Address: [address] [place] [address] Performed By: #### 2 4344-4 ####[facility] LABORATORYCLIA [id number] [address] [place] Calcium.ionized adjusted to pH 7.4 (BldA) [Moles/Vol] 1.12 mmol/L Normal 1.08-1.30 [facility] Comment on above: Order Comment: Speci men Type: VENOUS BLOOD SPECIMENOrdering Facility: [facility] Address: [address] [place] [address] Performed By: #### 2 4344-4 ####[facility] LABORATORYCLIA [id number] [address] OF [facility] Carboxyhemoglobin (BldV) [Mass fraction] 1.1 % Normal 0.0-2.0 [facility] Comment on above: Order Comment: Speci men Type: VENOUS BLOOD SPECIMENOrdering Facility: [facility] Address: [address] [place] [address] Result Comment: Carb oxyhemoglobin Reference Range for Smokers: 2.0-8.0% Performed By: #### 2 4344-4 ####[facility] LABORATORYCLIA [id number] [address] [place] Chloride [Moles/Vol] 107 mmol/L High 97-105 [facility] Comment on above: Order Comment: Speci men Type: VENOUS BLOOD SPECIMENOrdering Facility: [facility] Address: [address] [place] [address] Performed By: #### 2 4344-4 ####[facility] LABORATORYCLIA [id number] [address] [place] CO2 (BldV) [Partial pressure] 38 mm[Hg] Low 42-55 [facility] Comment on above: Order Comment: Speci men Type: VENOUS BLOOD SPECIMENOrdering Facility: [facility] Address: [address] [place] [address] Performed By: #### 2 4344-4 ####[facility] LABORATORYCLIA [id number] [address] CO2 adjusted to patient's actual temperature (BldV) [Partial pressure] 39 mmHg Low 42-55 [facility] Comment on above: Order Comment: Speci men Type: VENOUS BLOOD SPECIMENOrdering Facility: [facility] Address: [address] [place] [address] Performed By: #### 2 4344-4 ####[facility]ORATORYCLIA [id number] [address] [place] Glucose [Mass/Vol] 236 mg/dL High 60-105 [facility] Comment on above: Order Comment: Speci men Type: VENOUS BLOOD SPECIMENOrdering Facility: [facility] Address: [address] [place] [address] Performed By: #### 2 4344-4 ####[facility] LABORATORYCLIA [id number] [place] [address] [place] HCO3 (Bld) [Moles/Vol] 18 mmol/L Low 24-28 [facility] Comment on above: Order Comment: Speci men Type: VENOUS BLOOD SPECIMENOrdering Facility: [facility] Address: [address] [place] [address] Performed By: #### 2 4344-4 ####[facility] LABORATORYCLIA [id number] [address] [place] Hematocrit (Bld) [Volume fraction] 37.3 % Low 39.0-51.0 [facility] Comment on above: Order Comment: Speci men Type: VENOUS BLOOD SPECIMENOrdering Facility: [facility] Address: [address] [place] [address] Performed By: #### 2 4344-4 ####[facility] LABORATORYCLIA [id number] [address] [place] Hemoglobin (Bld) [Mass/Vol] 12.1 g/dL Low 13.0-17.0 [facility] Comment on above: Order Comment: Speci men Type: VENOUS BLOOD SPECIMENOrdering Facility: [facility] Address: [address] [place] [address] Performed By: #### 2 4344-4 ####[facility] LABORATORYCLIA [id number] [place] [address] [place] Lactate [Moles/Vol] 2.2 mmol/L Normal 0.5-2.2 [facility] Comment on above: Order Comment: Speci men Type: VENOUS BLOOD SPECIMENOrdering Facility: [facility] Address: [address] [place] [address] Performed By: #### 2 4344-4 ####[facility] LABORATORYCLIA [id number] [place] [id number] [facility] Methemoglobin (Bld) [Mass fraction] 0.8 % Normal 0.0-1.5 [facility] Comment on above: Order Comment: Speci men Type: VENOUS BLOOD SPECIMENOrdering Facility: [facility] Address: [address] [place] [address] Performed By: #### 2 4344-4 ####[facility] LABORATORYCLIA [id number] [address] O2 THERAPY VENT=Ventilator Normal [facility] Comment on above: Order Comment: Speci men Type: VENOUS BLOOD SPECIMENOrdering Facility: [facility] Address: [address] [place] [address] Performed By: #### 2 4344-4 ####[facility] LABORATORYCLIA [id number] [address] [place] Oxygen (BldV) [Partial pressure] 65 mm[Hg] High 35-45 [facility] Comment on above: Order Comment: Speci men Type: VENOUS BLOOD SPECIMENOrdering Facility: [facility] Address: [address] [place] [address] Performed By: #### 2 4344-4 ####[facility] LABORATORYCLIA [id number] [address] Oxygen adjusted to patient's actual temperature (BldV) [Partial pressure] 68 mmHg High 35-45 [facility] Comment on above: Order Comment: Speci men Type: VENOUS BLOOD SPECIMENOrdering Facility: [facility] Address: [facility] [place] [address] Performed By: #### 2 4344-4 ####[facility] LABORATORYCLIA [id number] [address] [place] Oxygen saturation in Venous blood 90 % High 60-85 [facility] Comment on above: Order Comment: Speci men Type: VENOUS BLOOD SPECIMENOrdering Facility: [facility] Address: [address] [place] [address] Performed By: #### 2 4344-4 ####[facility] LABORATORYCLIA [id number] [address] [place] Oxyhemoglobin (BldV) [Mass fraction] 89 % High 60-85 [facility] Comment on above: Order Comment: Speci men Type: VENOUS BLOOD SPECIMENOrdering Facility: [facility] Address: [address] [place] [address] Performed By: #### 2 4344-4 ####[facility] LABORATORYCLIA [id number] [place] [address] [place] pH (BldV) 7.31 [pH] Low 7.32-7.42 [facility] Comment on above: Order Comment: Speci men Type: VENOUS BLOOD SPECIMENOrdering Facility: [facility] Address: [address] [place] [address] Performed By: #### 2 4344-4 ####[facility] LABORATORYCLIA [id number] [address] [place] pH adjusted to patient's actual temperature (BldV) 7.30 Low 7.32-7.42 [facility] Comment on above: Order Comment: Speci men Type: VENOUS BLOOD SPECIMENOrdering Facility: [facility] Address: [address] [place] [address] Performed By: #### 2 4344-4 ####[facility] LABORATORYCLIA [id number] [place] [address] [place] Potassium [Moles/Vol] 4.7 mmol/L Normal 3.5-5.0 [facility] Comment on above: Order Comment: Speci men Type: VENOUS BLOOD SPECIMENOrdering Facility: [facility] Address: [address] [place] [address] Performed By: #### 2 4344-4 ####[facility] LABORATORYCLIA [id number] [place] [address] [place] Sodium [Moles/Vol] 134 mmol/L Low 136-144 [facility] Comment on above: Order Comment: Speci men Type: VENOUS BLOOD SPECIMENOrdering Facility: [facility] Address: [address] [place] [address] Performed By: #### 2 4344-4 ####[facility] LABORATORYCLIA [id number] [place] [id number] [facility] OF [place] NURSING PROGon 02-17-2025 NURSING PROG HNO ID: [id number] Author: ARLEN BUTLER RN Service: Nursing Author Type: Registered Nurse Type: Nursing Progress Note Filed: 02/17/2025 07:12 Note Text: Dr. Story and Dr. Gama at bedside. Pt in Afib rhythm. Order for 2 grams Magnesium IV Normal [facility] NUTRITIONon 02-17-2025 NUTRITION HNO ID: [id number] Author: DARA MCDUFFIE RD Service: Nutrition Therapy Author Type: Registered Dietitian Type: Nutrition Filed: 02/17/2025 14:18 Note Text: INITIAL ASSESSMENT SERVICE DATE: 02/17/2025 SERVICE TIME: Start Time: 1152 Nutrition Assessment: Recommended Malnutrition Diagnosis: No Malnutrition Identified Nutrition Diagnosis: Problem: Increased nutrient needs Related to: Wound healing As evidenced by: Medical condition Care Plan: Continue current diet Supplements: Ensure Max (BID) Monitor and Evaluation: Meet greater than 75% of estimated needs, Monitor bowel function, Monitor fluid/electrolyte balance, Monitor labs, I/Os, vital signs, weight Discharge Recommendations: Diet, Oral Supplements Diet: CHO controlled Oral Supplements: Ensure Max BID or equivalent HPI: 64 yr old male with h/o paraplegia and wounds admitted from a [place] after being found unresponsive with concerns for sepsis. Intubated in ICU. Intake History: Nutrition Intake Prior to Admission: Greater than 75% estimated energy needs Dosing Weight: 74 kg (163 lb 2.3 oz) Dosing Weight Type: [place] body weight (adjusted for paraplegia) Estimated kilocalorie needs: 1850-2220kcals Calorie Calculation Method: 25-30 kcals/kg Estimated protein needs (grams): 111-148gms Grams protein determined by: 1.5 - 2.0 g/kg (wound healing if renal fxn continues to improve) Diet Orders (From admission, onward) Start Ordered 02/17/25 0215 DIET NPO START NOW 02/17/25 0204 Anthropometrics: Height: 180.3 cm (5' 11") Weight: 95.2 kg (209 lb 14.1 oz) Body mass index is 29.27 kg/m?. Weight change percentage over time: no significant changes Physical Exam: Subcutaneous fat loss: No Subcutaneous Fat Loss Muscle loss: No Muscle Loss Potential micronutrient deficiency: Skin (stage 3 decub buttocks) Edema/Ascites: No edema, No ascites GI Symptoms: None Functional Status: Not related to malnutrition status Potential Signs of Inflammation: Chronic condition, Microbiologic cultures, Febrile, Tachycardia, Imaging studies, Leukocytosis, Hyperglycemia, Hypoalbuminemia DM Lines, Drains, and Airways Drain Duration Indwelling Urinary Catheter 02/16/252125 [facility] Coude 20 Fr <1 day MNT Billing: $ Initial Assessment: 1 unit Time Spent (mins): 8 SIGNATURE: Dara Mcduffie RD PATIENT NAME: Anmol Given DATE: February 17, 2025 TIME: 8:02 AM Normal [facility] PT panel Coag (PPP)on 2024 INR Coag (PPP) [Relative time] 1.2 {INR} Normal 0.9-1.3 [facility] Comment on above: Order Comment: Speci men Type: BLOOD SPECIMENOrdering Facility: [facility] Address: [address] [place] [address] Result Comment: Lorna min K Antagonist (VKA) Therapeutic Range: INR 2 to 3 (Target INR of 2.5) Note: For patients treated with VKA drugs, such as warfarin, the [employer] 2012 Guideline recommends a therapeutic INR range of 2 to 3 (target INR of 2.5). This recommendation includes high-risk patients with antiphospholipid syndrome with previous arterial or venous thromboembolism, current-generation mechanical or bioprosthetic aortic heart valve replacement. Note: Patients with mechanical aortic valve replacement and additional risk factors for thromboembolic events (atrial fibrillation, previous thromboembolism, LV dysfunction, hypercoagulable conditions) or an older generation mechanical AVR (i.e., ball in-Cage) or any mechanical MVR should have a INR therapeutic range of 2.5 to 3.5 (target INR of 3). Marett GH, et al. Chest 2012, 141:7S-47S Marcela RA, et al. [facility] 2017, 70: 252-289 Performed By: #### 1 4979-9, 79596-7 ####[facility] LABORATORYCLIA [id number] [place] [id number] [place] [facility] PT Coag (PPP) [Time] 12.4 s Normal 9.7-13.0 [facility] Comment on above: Order Comment: Speci men Type: BLOOD SPECIMENOrdering Facility: [facility] Address: [address] [place] [address] Performed By: #### 1 4979-9, 09830-6 ####[facility]CL[facility] [id number] [address] Phosphate SerPl-mCncon 02-17 Phosphate [Mass/Vol] 4.4 mg/dL Normal 2.7-4.8 [facility] Comment on above: Order Comment: Speci men Type: BLOOD SPECIMENOrdering Facility: [facility] Address: [address] [place] [address] Performed By: #### 2 777-1, 65572-4 ####[facility]CL[facility] [id number] [address] STAPHYLOCOCCUS AUREUS AND MR SA SCREEN, PCR, NASALon 02-17-2025 S. aureus and MRSA panel JOSSY+probe (Nose) Methicillin-SUSCEPTIB LE Staphylococcus aureus Detected Abnormal Not Detected [facility] Comment on above: Order Comment: Speci men Type: SWABOrdering Facility: [facility] Address: [address] [place] [address] Performed By: #### S APCR ####[facility] LABORATORYCLIA [id number] [address] [place] THERAPY NTon 02-17-2025 THERAPY NT HNO ID: [id number] Author: SANDHYA ABURTO, CHOCOLATIER Service: Respiratory Therapy Author Type: Registered Resp Therapist Type: Therapy (PT/OT/Speech/Resp) Filed: 02/17/2025 08:04 Note Text: 02/17/25 0759 Extubation Parameters $Extubation Parameters $Extubation Parameters Performed Spontaneous Respiratory Rate (BPM) 12 Spontaneous Minute Volume (L/min) 9.4 Spontaneous Tidal Volume (mL) 724 Rapid Shallow Breathing Index (RSBI) 16.57 Forced Vital Capacity (L) 1.3 Negative Inspiratory Force (cm H2O) -31 Diaphoretic/Agitated N Suctioning Less Frequent Than Q2H Y Cuff Leak Y Head Lift Yes Adequate Cough/Gag Reflex Y RESPIRATORY THERAPY PROGRESS NOTE SERVICE DATE: 02/17/2025 SERVICE TIME: 804 sbt SIGNATURE: Sandhya Aburto RRT PATIENT NAME: Anmol Given DATE: February 17, 2025 TIME: 8:03 AM PAGER/CONTACT #: angela Kc [facility] Vancomycin random [Mass/Vol] on 02-17-2025 Vancomycin [Mass/Vol] 6.1 ug/mL Low 10.0-20.0 [facility] Comment on above: Order Comment: Speci men Type: BLOOD SPECIMENOrdering Facility: [facility] Address: [address] [place] [address] Result Comment: Refe rence ranges and high/low indicator flags are provided as general guidelines only. The treating physician must determine appropriate target levels/dosing based on the specific clinical situation. Performed By: #### 4 091-5 ####[facility] LABORATORYCLIA [id number] [place] [address] [place] XR ABDOMEN 1V SUPINEon 02-17 XR ABDOMEN 1V SUPINE * * *Final Report* * * DATE OF EXAM: Feb 17 2025 7:59AM AKX [id number] - XR ABDOMEN 1V SUPINE / PROCEDURE REASON: Evaluate tube, line or lead position * * * * Physician Interpretation * * * * EXAM TITLE: XR ABDOMEN 1V SUPINE CLINICAL INDICATION/HISTORY: Evaluate tube COMPARISON: Abdominal radiograph 02/16/2025 TECHNIQUE: A single view of the abdomen is presented. FINDINGS: Enteric tube tip overlies the proximal gastric body. The side port overlies the GE junction. Scattered bowel gas mostly in the colon. No bowel dilation. Bilateral nephroureteral stents. IMPRESSION: Enteric tube tip overlies the proximal gastric body. The side port overlies the GE junction. [place] Supervisor: CECILIA Transcribe Date/Time: Feb 17 2025 11:05A Dictated by : VIPIN JASSO MD This examination was interpreted and the report reviewed and electronically signed by: VIPIN JASSO MD on Feb 17 2025 11:06AM EST [id number] Normal [facility] aPTT PPPon 02-17-2025 aPTT Coag (PPP) [Time] 38.7 s High 23.0-32.4 [facility] Comment on above: Order Comment: Speci men Type: BLOOD SPECIMENOrdering Facility: [facility] Address: [address] [place] [address] Performed By: #### 1 4979-9 ####[facility] LABORATORYCLIA [id number] [address] aPTT Coag (PPP) [Time] EXTREMELY ABNORMA L RESULT. No clot detected at 320 seconds. Refer to anticoagulation nomogram for further actions. Critically abnormal (none) [facility] Comment on above: Order Comment: Speci men Type: BLOOD SPECIMENOrdering Facility: [facility] Address: [address] [place] [address] Performed By: #### 1 4979-9 ####[facility] LABORATORYCLIA [id number] [address] aPTT Coag (PPP) [Time] 36.7 s High 23.0-32.4 [facility] Comment on above: Order Comment: Speci men Type: BLOOD SPECIMENOrdering Facility: [facility] Address: [address] [place] [address] Performed By: #### 1 4979-9, 53767-8 ####[facility] LABORATORYCLIA [id number] [place] [id number] [facility] ALLIED HEALTHon 02-16-2025 ALLIED HEALTH HNO ID: [id number] Author: DILCIA BASILIO RT(R) Service: ? Author Type: Technologist Type: Allied Health Filed: 02/16/2025 20:27 Note Text: Radiology Service Progress Note DATE OF SERVICE: February 16, 2025 TIME: 8:26 PM PATIENT IDENTITY VERIFICATION COMPLETED USING TWO (2) STANDARD IDENTIFIERS: Name and Date of confirmed by identification band and Name and Date of obtained from a relative, guardian or prior caregiver.. FALL SCREENING: Has the patient had 2 falls in the last year or 1 fall with injury or currently using an Ambulatory Assistive Device (Walker, Cane, Wheelchair, Crutches, etc.)? Emergency Room Patient: Screened in ED PATIENT GENDER DATA: Assigned male at PATIENT RELEVANT IMPLANT DATA REVIEWED: Yes PATIENT PRESENTS WITH AN IMPLANTABLE OR ATTACHED APPOINTMENT CLERK: No ALLERGIES: Reviewed and unchanged CONTRAST ALLERGY: NO. EXAM: CT -CONTRAST INDUCED NEPHROPATHY RISK FACTORS: Patient age > 60 years CREATININE: Creatinine Date Value Ref Range Status 02/16/2025 2.35 (H) 0.73 - 1.22 mg/dL Final 05/02/2023 0.53 (L) 0.73 - 1.22 mg/dL Final 04/28/2023 0.54 (L) 0.73 - 1.22 mg/dL Final Estimated Glomerular Filtration Rate Date Value Ref Range Status 02/16/2025 30 (L) >=60 mL/min/1.73m? Final Comment: Estimated Glomerular Filtration Rate (eGFR) is calculated using the 2020 CKD-EPI creatinine equation. This equation utilizes serum creatinine, sex, and age as parameters. The creatinine assay has traceable calibration to isotope dilution-mass spectrometry. Refer to KDIGO guidelines for clinical interpretation. In patients with unstable renal function, e.g. those with acute kidney injury, the eGFR may not accurately reflect actual GFR. eGFR- Date Value Ref Range Status 11/29/2021 >60 Final P.O.C.T. RESULTS: POC done: Yes, See Lab Tab February 16, 2025 TREATMENT: N/A PERIPHERAL IV DATA: Inpatient - refer to [facility] documentation RADIOLOGY DEPARTMENT: CT; Exam(s) Completed: Brain , Chest Abdomen Pelvis, CTA Brain , and CTA Neck SIGNATURE: Dilcia Basilio RT(R) PATIENT NAME: Anmol Reynolds DATE: February 16, 2025 TIME: 8:26 PM Normal [facility] Bacteria Bld Culton 05-15-20 25 Bacteria identified Cx Nom (Bld) ORGANISM ID: 1 Culture report of Enterococcus faecalis Refer to specimen collected on 02/16/2025. Cephalosporins, clindamycin, and TMP-SMX are not effective for the treatment of enterococcal infections. ORGANISM ID: 2 Culture report of Proteus mirabilis Refer to specimen collected on 02/16/2025. ORGANISM ID: 5 Culture report of Providencia stuartii Refer to specimen collected on 02/16/2025. ORGANISM ID: 6 Culture report of Citrobacter freundii complex Susceptibility results to follow. GRAM STAIN: Gram positive cocci in pairs and chains Gram negative bacilli ORGANISM ID: 6 (CITROBACTER FREUNDII COMPLEX) ------ ANTIBIOTIC INTERPRETATION HARINDER STATUS REFERENCE RANGE ------ Ampicillin R 16 F Cefepime S <=1 F Susceptible <=2 , Susceptible-Dose Dependent >2 , Resistant >=16 Ertapenem S <=0.25 F Susceptible <=0.5 , Intermediate >.5 , Resistant >1 Meropenem S <=0.5 F Susceptible <=1 , Intermediate >1 , Resistant >2 Aztreonam S <=2 F Susceptible <=4 , Intermediate >4 , Resistant >=16 Ampicillin/Sulbact R 8 F Piperacillin/Tazobac S <=2 F Gentamicin S <=2 F Susceptible <=2 , Intermediate >2 , Resistant >4 Trimeth sulfameth S <=0.5 F Ciprofloxacin R 1 F Susceptible <0.5 , Intermediate >=.5 , Resistant >=1 Abnormal [facility] Comment on above: Performed By: #### 6 00-7 ####[facility] [id number] [place] [address] [place] Bacteria identified Cx Nom (Bld) ORGANISM ID: 1 Culture report of Enterococcus faecalis Cephalosporins, clindamycin, and TMP-SMX are not effective for the treatment of enterococcal infections. BLACT: Negative ORGANISM ID: 2 Culture report of Proteus mirabilis ORGANISM ID: 5 Culture report of Providencia stuartii GRAM STAIN: Gram positive cocci in pairs and chains Gram negative bacilli ORGANISM ID: 1 (ENTEROCOCCUS FAECALIS) ------ ANTIBIOTIC INTERPRETATION HARINDER STATUS REFERENCE RANGE ------ Ampicillin S 1 F Susceptible <=8 , Resistant >8 The results of ampicillin predict the susceptibility to amoxicillin, amoxicillin-clavulana te, ampicillin-sulbactam and piperacillin-tazobact am. Gentamicin Synergy Screen R >500 F Susceptible <=500 , Resistant >500 The high-level aminoglycoside (gentamicin or streptomycin) screening test predicts synergistic activity of the aminoglycoside with a cell wall active agent (eg Am, P, Va) that is also susceptible. Streptomycin Synergy Screen S <=1,000 F Susceptible 0-1,000 , Intermediate <0 or >1000 , Resistant >1000 The high-level aminoglycoside (gentamicin or streptomycin) screening test predicts synergistic activity of the aminoglycoside with a cell wall active agent (eg Am, P, Va) that is also susceptible. Vancomycin S 1 F Susceptible <=4 , Intermediate >4 , Resistant >16 ORGANISM ID: 2 (PROTEUS MIRABILIS) ------ ANTIBIOTIC INTERPRETATION HARINDER STATUS REFERENCE RANGE ------ Ampicillin S <=4 F Susceptible <=8 , Intermediate >8 , Resistant >16 Cefazolin R 8 F Susceptible <=2 , Intermediate >2 , Resistant >=8 Ceftriaxone S <=1 F Susceptible <=1 , Intermediate >1 , Resistant >=4 Cefepime S <=1 F Susceptible <=2 , Susceptible-Dose Dependent >2 , Resistant >=16 Ertapenem S <=0.25 F Susceptible <=0.5 , Intermediate >.5 , Resistant >1 Aztreonam S <=2 F Susceptible <=4 , Intermediate >4 , Resistant >=16 Ampicillin/Sulbact S <=1 F Piperacillin/Tazobac S <=2 F Gentamicin I 4 F Susceptible <=2 , Intermediate >2 , Resistant >4 Tobramycin I 4 F Susceptible <=2 , Intermediate >2 , Resistant >4 Amikacin NI <=8 F This isolate is intermediate or susceptible to amikacin. If discrimination between intermediate and susceptible is needed, please call the lab to request additional testing. Trimeth sulfameth S <=0.5 F Ciprofloxacin R >2 F Susceptible <0.5 , Intermediate >=.5 , Resistant >=1 ORGANISM ID: 5 (PROVIDENCIA STUARTII) ------ ANTIBIOTIC INTERPRETATION HARINDER STATUS REFERENCE RANGE ------ Ampicillin R >16 F Susceptible <=8 , Intermediate >8 , Resistant >16 Cefazolin R >16 F Susceptible <=2 , Intermediate >2 , Resistant >=8 Ceftriaxone S <=1 F Susceptible <=1 , Intermediate >1 , Resistant >=4 Cefepime S <=1 F Susceptible <=2 , Susceptible-Dose Dependent >2 , Resistant >=16 Ertapenem S <=0.25 F Susceptible <=0.5 , Intermediate >.5 , Resistant >1 Meropenem S <=0.5 F Susceptible <=1 , Intermediate >1 , Resistant >2 Aztreonam S <=2 F Susceptible <=4 , Intermediate >4 , Resistant >=16 Ampicillin/Sulbact R >16 F Piperacillin/Tazobac S <=2 F Gentamicin R F Tobramycin R F Amikacin NI <=8 F This isolate is intermediate or susceptible to amikacin. If discrimination between intermediate and susceptible is needed, please call the lab to request additional testing. Trimeth sulfameth R >2 F Ciprofloxacin R >2 F Susceptible <0.5 , Intermediate >=.5 , Resistant >=1 Abnormal [facility] Comment on above: Performed By: #### 6 00-7 #### [facility] [place] [id number] [address] [place] [id number] [place] Bacteria Ur Culton 5 Bacteria identified Cx Nom (U) ORGANISM ID: 1 >=100,000 CFU/ml Providencia stuartii Two morphologically different colony types. ORGANISM ID: 3 >=100,000 CFU/ml Proteus mirabilis ORGANISM ID: 4 >=100,000 CFU/ml Citrobacter freundii complex ORGANISM ID: 5 >=100,000 CFU/ml Enterococcus faecalis Cephalosporins, clindamycin, and TMP-SMX are not effective for the treatment of enterococcal infections. No further workup. ORGANISM ID: [id number] >=100,000 CFU/ml Staphylococcus aureus No further workup. ORGANISM ID: 1 (PROVIDENCIA STUARTII) ------ ANTIBIOTIC INTERPRETATION HARINDER STATUS REFERENCE RANGE ------ Ampicillin R >16 F Susceptible <=8 , Intermediate >8 , Resistant >16 Cefazolin R >16 F Susceptible 0-16 , Intermediate <0 or >16 , Resistant >16 For uncomplicated urinary tract infections, cefazolin results can be used to predict susceptibility or resistance to cephalexin. Ceftriaxone S <=1 F Susceptible <=1 , Intermediate >1 , Resistant >=4 Cefepime S <=1 F Susceptible <=2 , Susceptible-Dose Dependent >2 , Resistant >=16 Ertapenem S <=0.25 F Susceptible <=0.5 , Intermediate >.5 , Resistant >1 Meropenem S <=0.5 F Susceptible <=1 , Intermediate >1 , Resistant >2 Aztreonam S <=2 F Susceptible <=4 , Intermediate >4 , Resistant >=16 Ampicillin/Sulbact R >16 F Piperacillin/Tazobac S 4 F Gentamicin R F Tobramycin R F Amikacin NI <=8 F This isolate is intermediate or susceptible to amikacin. If discrimination between intermediate and susceptible is needed, please call the lab to request additional testing. Trimeth sulfameth R >2 F Ciprofloxacin R >2 F Susceptible <0.5 , Intermediate >=.5 , Resistant >=1 Nitrofurantoin R >64 F Susceptible <=32 , Intermediate >32 , Resistant >64 ORGANISM ID: 3 (PROTEUS MIRABILIS) ------ ANTIBIOTIC INTERPRETATION HARINDER STATUS REFERENCE RANGE ------ Ampicillin R <=4 F Cefazolin S 8 F Susceptible 0-16 , Intermediate <0 or >16 , Resistant >16 For uncomplicated urinary tract infections, cefazolin results can be used to predict susceptibility or resistance to cephalexin. Ceftriaxone S <=1 F Susceptible <=1 , Intermediate >1 , Resistant >=4 Cefepime S <=1 F Susceptible <=2 , Susceptible-Dose Dependent >2 , Resistant >=16 Ertapenem S <=0.25 F Susceptible <=0.5 , Intermediate >.5 , Resistant >1 Aztreonam S <=2 F Susceptible <=4 , Intermediate >4 , Resistant >=16 Ampicillin/Sulbact I 16 F Piperacillin/Tazobac S <=2 F Gentamicin I 4 F Susceptible <=2 , Intermediate >2 , Resistant >4 Tobramycin I 4 F Susceptible <=2 , Intermediate >2 , Resistant >4 Amikacin NI <=8 F This isolate is intermediate or susceptible to amikacin. If discrimination between intermediate and susceptible is needed, please call the lab to request additional testing. Trimeth sulfameth S <=0.5 F Ciprofloxacin R >2 F Susceptible <0.5 , Intermediate >=.5 , Resistant >=1 Nitrofurantoin R 64 F ORGANISM ID: 4 (CITROBACTER FREUNDII COMPLEX) ------ ANTIBIOTIC INTERPRETATION HARINDER STATUS REFERENCE RANGE ------ Ampicillin R 8 F Cefepime S <=1 F Susceptible <=2 , Susceptible-Dose Dependent >2 , Resistant >=16 Ertapenem S <=0.25 F Susceptible <=0.5 , Intermediate >.5 , Resistant >1 Meropenem S <=0.5 F Susceptible <=1 , Intermediate >1 , Resistant >2 Aztreonam S <=2 F Susceptible <=4 , Intermediate >4 , Resistant >=16 Ampicillin/Sulbact R 8 F Piperacillin/Tazobac S <=2 F Gentamicin S <=2 F Susceptible <=2 , Intermediate >2 , Resistant >4 Trimeth sulfameth S <=0.5 F Ciprofloxacin R 1 F Susceptible <0.5 , Intermediate >=.5 , Resistant >=1 Nitrofurantoin S <=16 F Susceptible <=32 , Intermediate >32 , Resistant >64 Abnormal [facility] Comment on above: Performed By: #### 2 4356-8, 630-4 ####[facility] LABORATORYCLIA [id number] [place] [address] [place] CBC W Auto Differential pane l (Bld)on 02-16-2025 Basophils (Bld) [#/Vol] 0.00 10*3/uL Normal <0.11 [facility] Comment on above: Order Comment: Speci men Type: BLOOD SPECIMENOrdering Facility: [facility] Address: [address] [place] [address] Performed By: #### 5 7021-8 ####[facility]ORATORYCLIA [id number] [address] STATES OF [facility] Basophils/100 WBC (Bld) 0.0 % Normal A [facility] Comment on above: Order Comment: Speci men Type: BLOOD SPECIMENOrdering Facility: [facility] Address: [address] [place] [address] Performed By: #### 5 7021-8 ####[facility]ORATORYCLIA [id number] [address] Differential cell count method Nom (Bld) Manual Normal [facility] Comment on above: Order Comment: Speci men Type: BLOOD SPECIMENOrdering Facility: [facility] Address: [address] [place] [address] Performed By: #### 5 7021-8 ####[facility]ORATORYCLIA [id number] [address] STATES OF [facility] Eosinophils (Bld) [#/Vol] 0.00 10*3/uL Normal <0.46 [facility] Comment on above: Order Comment: Speci men Type: BLOOD SPECIMENOrdering Facility: [facility] Address: [address] [place] [address] Performed By: #### 5 7021-8 ####[facility]ORATORYCLIA [id number] [address] Eosinophils/100 WBC (Bld) 0.0 % Normal [facility] Comment on above: Order Comment: Speci men Type: BLOOD SPECIMENOrdering Facility: [facility] Address: [address] [place] [address] Performed By: #### 5 7021-8 ####[facility]ORATORYCLIA [id number] [address] [place] Erythrocyte distribution width (RBC) [Ratio] 14.5 % Normal 11.5-15.0 [facility] Comment on above: Order Comment: Speci men Type: BLOOD SPECIMENOrdering Facility: [facility] Address: [address] [place] [address] Performed By: #### 5 7021-8 ####[facility]ORATORYCLIA [id number] [address] [place] Hematocrit (Bld) [Volume fraction] 34.9 % Low 39.0-51.0 [facility] Comment on above: Order Comment: Speci men Type: BLOOD SPECIMENOrdering Facility: [facility] Address: [address] [place] [address] Performed By: #### 5 7021-8 ####[facility] LABORATORYCLIA [id number] [address] [place] Hemoglobin (Bld) [Mass/Vol] 11.6 g/dL Low 13.0-17.0 [facility] Comment on above: Order Comment: Speci men Type: BLOOD SPECIMENOrdering Facility: [facility] Address: [address] [place] [address] Performed By: #### 5 7021-8 ####[facility] LABORATORYCLIA [id number] [place] [address] [place] Lymphocytes (Bld) [#/Vol] 0.31 10*3/uL Low 1.00-4.00 [facility] Comment on above: Order Comment: Speci men Type: BLOOD SPECIMENOrdering Facility: [facility] Address: [address] [place] [address] Performed By: #### 5 7021-8 ####[facility] LABORATORYCLIA [id number] [address] [place] Lymphocytes/100 WBC (Bld) 3.0 % Normal [facility] Comment on above: Order Comment: Speci men Type: BLOOD SPECIMENOrdering Facility: [facility] Address: [address] [place] [address] Performed By: #### 5 7021-8 ####[facility]ORATORYCLIA [id number] [address] MCH (RBC) [Entitic mass] 30.1 pg Normal 26.0-34.0 [facility] Comment on above: Order Comment: Speci men Type: BLOOD SPECIMENOrdering Facility: [facility] Address: [address] [place] [address] Performed By: #### 5 7021-8 ####[facility] LABORATORYCLIA [id number] [address] [place] MCHC (RBC) [Mass/Vol] 33.2 g/dL Normal 30.5-36.0 [facility] Comment on above: Order Comment: Speci men Type: BLOOD SPECIMENOrdering Facility: [facility] Address: [address] [place] [address] Performed By: #### 5 7021-8 ####[facility] LABORATORYCLIA [id number] [address] MCV (RBC) [Entitic vol] 90.6 fL Normal 80.0-100.0 [facility] Comment on above: Order Comment: Speci men Type: BLOOD SPECIMENOrdering Facility: [facility] Address: [address] [place] [address] Performed By: #### 5 7021-8 ####[facility] LABORATORYCLIA [id number] [address] OF [facility] Metamyelocytes/100 WBC (Bld) 3.0 % Normal [facility] Comment on above: Order Comment: Speci men Type: BLOOD SPECIMENOrdering Facility: [facility] Address: [address] [place] [address] Performed By: #### 5 7021-8 ####[facility] LABORATORYCLIA [id number] [address] Monocytes (Bld) [#/Vol] 0.41 10*3/uL Normal <0.87 [facility] Comment on above: Order Comment: Speci men Type: BLOOD SPECIMENOrdering Facility: [facility] Address: [address] [place] [address] Performed By: #### 5 7021-8 ####[facility]ORATORYCLIA [id number] [place] [address] [place] Monocytes/100 WBC (Bld) 4.0 % Normal A [facility] Comment on above: Order Comment: Speci men Type: BLOOD SPECIMENOrdering Facility: [facility] Address: [address] [place] [address] Performed By: #### 5 7021-8 ####[facility]ORATORYCLIA [id number] [place] [address] [place] Neutrophils (Bld) [#/Vol] 9.26 10*3/uL High 1.45-7.50 [facility] Comment on above: Order Comment: Speci men Type: BLOOD SPECIMENOrdering Facility: [facility] Address: [address] [place] [address] Performed By: #### 5 7021-8 ####[facility]ORATORYCLIA [id number] [address] OF [place] Neutrophils/100 WBC (Bld) 90.0 % Normal [facility] Comment on above: Order Comment: Speci men Type: BLOOD SPECIMENOrdering Facility: [facility] Address: [address] [place] [address] Performed By: #### 5 7021-8 ####[facility]ORATORYCLIA [id number] [address] [place] Nucleated RBC (Bld) [#/Vol] 10*3/uL Normal <0.01 [facility] Comment on above: Order Comment: Speci men Type: BLOOD SPECIMENOrdering Facility: [facility] Address: [address] [place] [address] Performed By: #### 5 7021-8 ####[facility]ORATORYCLIA [id number] [address] OF [place] Nucleated RBC/100 WBC (Bld) [Ratio] 0.0 /100 WBC Normal [facility] Comment on above: Order Comment: Speci men Type: BLOOD SPECIMENOrdering Facility: [facility] Address: [address] [place] [address] Performed By: #### 5 7021-8 ####[facility] LABORATORYCLIA [id number] [address] STATES [facility] Platelet mean volume (Bld) [Entitic vol] 10.6 fL Normal 9.0-12.7 [facility] Comment on above: Order Comment: Speci men Type: BLOOD SPECIMENOrdering Facility: [facility] Address: [address] [place] [address] Performed By: #### 5 7021-8 ####[facility] LABORATORYCLIA [id number] [address] OF [facility] Platelets (Bld) [#/Vol] 108 10*3/uL Low 150-400 [facility] Comment on above: Order Comment: Speci men Type: BLOOD SPECIMENOrdering Facility: [facility] Address: [address] [place] [address] Result Comment: No c lot detected. Performed By: #### 5 7021-8 ####[facility] LABORATORYCLIA [id number] [address] Platelets Estimate (Bld) [#/Vol] Decreased Normal [facility] Comment on above: Order Comment: Speci men Type: BLOOD SPECIMENOrdering Facility: [facility] Address: [address] [place] [address] Performed By: #### 5 7021-8 ####[facility] LABORATORYCLIA [id number] [address] OF [place] RBC (Bld) [#/Vol] 3.85 10*6/uL Low 4.20-6.00 [facility] Comment on above: Order Comment: Speci men Type: BLOOD SPECIMENOrdering Facility: [facility] Address: [address] [place] [address] Performed By: #### 5 7021-8 ####[facility] LABORATORYCLIA [id number] [address] RED CELL MORPH Reviewed: unremarkable Normal [facility] Comment on above: Order Comment: Speci men Type: BLOOD SPECIMENOrdering Facility: [facility] Address: [address] [place], [place] [address] Performed By: #### 5 7021-8 ####[facility] LABORATORYCLIA [id number] [place] [address] [place] WBC (Bld) [#/Vol] 10.29 10*3/uL Normal 3.70-11.00 [facility] Comment on above: Order Comment: Speci men Type: BLOOD SPECIMENOrdering Facility: [facility] Address: [address] [place], [place] [address] Performed By: #### 5 7021-8 ####[facility] LABORATORYCLIA [id number] [place] [id number] [facility] CT ABD/PEL W IVCONon 05-15-[address] ABD/PEL W IVCON * * *Final Report* * * DATE OF EXAM: Feb 16 2025 8:33PM [facility] 0530 - CT ABD/PEL W IVCON / PROCEDURE REASON: Abdominal abscess/infection suspected * * * * Physician Interpretation * * * * EXAMINATION: CT ABDOMEN AND PELVIS WITH IV CONTRAST CLINICAL HISTORY: PATIENT/TECHNOLOGIST PROVIDED HISTORY: unresponsive, history of spinal cord injury CLINICAL INFORMATION ( PROVIDED BY ORDERING CLINICIAN) : Abdominal abscess/infection suspected TECHNIQUE: CT of the abdomen and pelvis was performed using standard technique, scanning from just above the dome of the diaphragm to the symphysis pubis. Coronal and sagittal reconstructed images generated. MQ: CTAP_3 Contrast: IV: 100 ml of Omnipaque 350 Oral: None CT Radiation dose: Integrated Dose-length product (DLP) for this visit = 3742 mGy*cm. CT Dose Reduction Employed: Automated exposure control(AEC) and iterative recon COMPARISON: 05/02/2023 and 04/23/2023. RESULT: Liver: Subcentimeter subtle hypodensity left lobe (3:28) too small to accurately characterize. No mass. Mild periportal edema. Biliary: No bile duct dilation. Mildly distended with no calcified gallstones identified. Spleen: No mass. Enlarged measuring approximately 15 cm in craniocaudal length. Pancreas: Predominantly atrophic. Multiple scattered calcifications most likely the sequela of chronic pancreatitis. Adrenals: No mass. Kidneys: Bilateral ureteral stents with the right proximal end coiled in a upper pole calyx and the left proximal end coiled in a upper pole calyx. The right and left distal ends are coiled in the urinary bladder. Right kidney enhances in a normal fashion with no hydronephrosis, renal or ureteral stones. Left kidney shows slight delayed nephrogram with mild to moderate hydronephrosis and mild left hydronephrosis. There are left renal stones with largest measuring 1.1 cm lower pole. No left ureteral stones. There is mild bilateral urothelial thickening and enhancement of the right and left renal pelvises left greater than right and the left ureter. GI tract: Enteric tube present with the tip above the gastroesophageal junction which needs advanced. No dilation. The appendix appears unremarkable. Moderate amount of scattered colonic stool within segments of the large bowel. There is wall thickening of the distal sigmoid colon and rectum. Lymph nodes: No lymphadenopathy identified. Mesentery/Peritoneum: No free air. No ascites. Retroperitoneum: No mass. Vasculature: - Abdominal aorta and iliac arteries: Atherosclerotic calcifications without aneurysm. - Celiac and SMA: Patent. - Portal venous system (SMV, splenic vein, portal vein and branches): Patent. - Hepatic veins: Incompletely opacified, likely due to early phase of enhancement. -Retroaortic left renal vein. Pelvis: Urinary bladder is nondistended with indwelling Santana catheter and a couple small foci of nondependent gas. There is bladder wall thickening which could be related to decompressed state versus cystitis in the appropriate clinical setting. Bones: Osteopenia. Degenerative changes. Postsurgical changes of the lumbar spine including posterior fusion rods spanning from T12 through L5 and pedicle screws at T12, L1, L4 and L5. Unchanged remote chronic compression deformities L2 and L3. Stable heterotopic bone formation along the anterior left hip capsule. Lower thorax: A chest CT performed will be reported separately. Localizer images: No additional findings. IMPRESSION: 1. Bilateral ureteral stents with the right proximal end coiled in a upper pole calyx and the left proximal end coiled in a upper pole calyx. The right and left distal ends are coiled in the urinary bladder. 2. Left kidney shows slight delayed nephrogram with mild to moderate hydronephrosis and mild left hydronephrosis. 3. Left renal stones with largest measuring 1.1 cm lower pole. No left ureteral stones. 4. Mild bilateral urothelial thickening and enhancement of the right and left renal pelvises left greater than right and the left ureter which could be of infectious or inflammatory etiology versus changes from a recently passed stone. 5. Urinary bladder is nondistended with indwelling Santana catheter and a couple small foci of nondependent gas. There is bladder wall thickening which could be related to decompressed state versus cystitis in the appropriate clinical setting, correlate for cystitis. 6. Enteric tube present with the tip above the gastroesophageal junction which needs advanced. 7. Wall thickening of the distal sigmoid colon and rectum suspicious for proctocolitis. 8. Details above. 9. Follow-up as indicated. [place] Supervisor: PSCB Transcribe Date/Time: Feb 16 2025 10:02P Dictated by : CORBIN PERRY MD This examination was interpreted and the report reviewed and electronically signed by: CORBIN PERRY MD on Feb 16 2025 10:34PM EST 16 (more content not included)... Normal [facility] CT BRAIN WO IVCONon 02-17-[address] BRAIN WO IVCON * * *Final Report* * * DATE OF EXAM: Feb 16 2025 8:33PM [facility] 0504 - CT BRAIN WO IVCON / PROCEDURE REASON: Mental status change, unknown cause * * * * Physician Interpretation * * * * EXAMINATION: CTA HEAD W IVCON, CTA NECK W IVCON, CT BRAIN WO IVCON HISTORY: AMS, unresponsive, history of spinal cord injury. TECHNIQUE: Routine CT of the brain without IV contrast. Next, high resolution axial images were obtained through the head, neck and superior mediastinum following bolus administration of intravenous contrast for CT angiography. 3D maximum intensity projection images were created, reviewed and archived . MQ: CTABNPlus_4 Contrast: 100 mL Omnipaque [address] Radiation dose: Integrated Dose-Length Product (DLP) for this visit = 3742 mGy*cm. CT Dose Reduction Employed: Automated exposure control(AEC) and iterative recon COMPARISON: MR 02/14/2022 RESULT: BRAIN: Acute change: No evidence of an acute infarct or other acute parenchymal process. ASPECT Score = 10 Hemorrhage: No evidence of acute intracranial hemorrhage. ECASS hemorrhagic transformation score: Not Applicable Mass Lesion / Mass Effect: There is no evidence of an intracranial mass or extra-axial fluid collection. No significant mass effect. Chronic change: Chronic right cerebellar infarct. Parenchyma: There is no significant volume loss. Ventricles: The ventricles are within normal limits of size and configuration for age. Other: The visualized paranasal sinuses are grossly clear. The skull and visualized extracranial soft tissues are grossly normal. NECK: Soft tissues: Intubation. Spine: Alignment is normal. Mild degenerative changes are present. Lung apices: Evaluated separately. CT ARTERIOGRAM: Extracranial Circulation: Aortic Arch: There is a normal branching pattern from the aortic arch. There is no significant stenosis in the proximal brachiocephalic vessels. Carotid Stenosis: Right Common: No significant stenosis. Right Internal Carotid Plaque: No significant plaque formation. Right Internal Carotid Stenosis (% by NASCET Criteria): None seen in Left Common: No significant stenosis. Left Internal Carotid Plaque: No significant plaque formation. Left Internal Carotid Stenosis (% by NASCET Criteria): None significant Cervical Vertebral Arteries: Patency: Bilateral Dominance: Codominant Intracranial Circulation: Anterior Circulation: No large vessel occlusion or severe stenosis Vertebrobasilar Circulation: No large vessel occlusion or severe stenosis. No sizable aneurysm. Visualized major dural venous sinuses are patent. IMPRESSION: No acute intracranial abnormality. No acute abnormality involving the major extra or intracranial arteries. [place] Supervisor: [facility] Transcribe Date/Time: Feb 16 2025 9:23P Dictated by : BYRON SRINIVASAN MD This examination was interpreted and the report reviewed and electronically signed by: BYRON SRINIVASAN MD on Feb 16 2025 9:34PM EST [id number] N Normal [facility] CT CHEST W IVCONon CT CHEST W IVCON * * *Final Report* * * DATE OF EXAM: Feb 16 2025 8:33PM [facility] 0539 - CT CHEST W IVCON / PROCEDURE REASON: Chest trauma, blunt * * * * Physician Interpretation * * * * EXAMINATION: CHEST CT WITH CONTRAST CLINICAL HISTORY: Chest trauma blunt. Technique: Spiral CT acquisition of the chest from the thoracic inlet to the upper abdomen following IV contrast. MQ: CTCW_6 Contrast: 100 mL Omnipaque [address] Radiation dose: Integrated Dose-length product (DLP) for this visit = 3742 mGy*cm CT Dose Reduction Employed: Automated exposure control(AEC) and iterative recon Comparison: CT chest on 03/14/2021 RESULT: Limitations: None. Lines, tubes, and devices: Endotracheal tube terminates in mid trachea. Enteric tube terminates at the gastroesophageal junction and should be advanced. Lung parenchyma and airways: Groundglass opacities in the anterior left upper lobe. Bilateral posterior lower lobe mucus plugging with postobstructive atelectasis or consolidations, greater on the left. Trachea and mainstem bronchi are patent. Pleural space: Trace pleural effusions. No pneumothorax. Lower neck, lymph nodes, and mediastinum: The imaged thyroid gland is normal. No lymphadenopathy in the supraclavicular, axillary, mediastinal, or hilar regions. Heart, pericardium, and thoracic vessels: Thoracic aorta and main pulmonary artery are normal in caliber. Cardiac chambers are normal in size. No pericardial effusion or thickening. Severe coronary artery calcifications. Soft tissues: Foci of soft tissue gas in the left pectoralis muscle. Additional numerous foci of gas throughout the vessels, likely iatrogenic. Bones: No acute abnormality. T9 vertebral body hemangioma. Partially visualized thoracolumbar fixation hardware. Upper abdomen: Reported separately. Localizer images: No additional findings. IMPRESSION: 1. Left upper lobe ground glass opacities favor pulmonary contusions in the setting of trauma. 2. Trace pleural effusions and bilateral posterior lower lobe mucus plugging with postobstructive atelectasis or pneumonia, greater on the left. 3. Minimal subcutaneous emphysema in the left pectoralis major muscle. Additional foci of soft tissue gas throughout multiple vessels is likely iatrogenic. 4. Enteric tube terminates at the gastroesophageal junction and should be advanced. [place] Supervisor: CECILIA Transcribe Date/Time: Feb 16 2025 9:56P Dictated by : ELLIOT ANGELA DO This examination was interpreted and the report reviewed and electronically signed by: ELLIOT ANGELA DO on Feb 16 2025 10:13PM EST [id number] N Normal [facility] CTA HEAD W IVCONon 5 CTA HEAD W IVCON * * *Final Report* * * DATE OF EXAM: Feb 16 2025 8:33PM [facility] 0022 - CTA HEAD W IVCON / PROCEDURE REASON: Mental status change, unknown cause * * * * Physician Interpretation * * * * EXAMINATION: CTA HEAD W IVCON, CTA NECK W IVCON, CT BRAIN WO IVCON HISTORY: AMS, unresponsive, history of spinal cord injury. TECHNIQUE: Routine CT of the brain without IV contrast. Next, high resolution axial images were obtained through the head, neck and superior mediastinum following bolus administration of intravenous contrast for CT angiography. 3D maximum intensity projection images were created, reviewed and archived . MQ: CTABNPlus_4 Contrast: 100 mL Omnipaque [address] Radiation dose: Integrated Dose-Length Product (DLP) for this visit = 3742 mGy*cm. CT Dose Reduction Employed: Automated exposure control(AEC) and iterative recon COMPARISON: MR 02/14/2022 RESULT: BRAIN: Acute change: No evidence of an acute infarct or other acute parenchymal process. ASPECT Score = 10 Hemorrhage: No evidence of acute intracranial hemorrhage. ECASS hemorrhagic transformation score: Not Applicable Mass Lesion / Mass Effect: There is no evidence of an intracranial mass or extra-axial fluid collection. No significant mass effect. Chronic change: Chronic right cerebellar infarct. Parenchyma: There is no significant volume loss. Ventricles: The ventricles are within normal limits of size and configuration for age. Other: The visualized paranasal sinuses are grossly clear. The skull and visualized extracranial soft tissues are grossly normal. NECK: Soft tissues: Intubation. Spine: Alignment is normal. Mild degenerative changes are present. Lung apices: Evaluated separately. CT ARTERIOGRAM: Extracranial Circulation: Aortic Arch: There is a normal branching pattern from the aortic arch. There is no significant stenosis in the proximal brachiocephalic vessels. Carotid Stenosis: Right Common: No significant stenosis. Right Internal Carotid Plaque: No significant plaque formation. Right Internal Carotid Stenosis (% by NASCET Criteria): None seen in Left Common: No significant stenosis. Left Internal Carotid Plaque: No significant plaque formation. Left Internal Carotid Stenosis (% by NASCET Criteria): None significant Cervical Vertebral Arteries: Patency: Bilateral Dominance: Codominant Intracranial Circulation: Anterior Circulation: No large vessel occlusion or severe stenosis Vertebrobasilar Circulation: No large vessel occlusion or severe stenosis. No sizable aneurysm. Visualized major dural venous sinuses are patent. IMPRESSION: No acute intracranial abnormality. No acute abnormality involving the major extra or intracranial arteries. [employer] Supervisor: CECILIA Transcribe Date/Time: Feb 16 2025 9:23P Dictated by : BYRON SRINIVASAN MD This examination was interpreted and the report reviewed and electronically signed by: BYRON SRINIVASAN MD on Feb 16 2025 9:34PM EST [id number] N Normal [facility] CTA NECK W IVCONon CTA NECK W IVCON * * *Final Report* * * DATE OF EXAM: Feb 16 2025 8:33PM [facility] 0024 - CTA NECK W IVCON / PROCEDURE REASON: Mental status change, unknown cause * * * * Physician Interpretation * * * * EXAMINATION: CTA HEAD W IVCON, CTA NECK W IVCON, CT BRAIN WO IVCON HISTORY: AMS, unresponsive, history of spinal cord injury. TECHNIQUE: Routine CT of the brain without IV contrast. Next, high resolution axial images were obtained through the head, neck and superior mediastinum following bolus administration of intravenous contrast for CT angiography. 3D maximum intensity projection images were created, reviewed and archived . MQ: CTABNPlus_4 Contrast: 100 mL Omnipaque [address] Radiation dose: Integrated Dose-Length Product (DLP) for this visit = 3742 mGy*cm. CT Dose Reduction Employed: Automated exposure control(AEC) and iterative recon COMPARISON: MR 02/14/2022 RESULT: BRAIN: Acute change: No evidence of an acute infarct or other acute parenchymal process. ASPECT Score = 10 Hemorrhage: No evidence of acute intracranial hemorrhage. ECASS hemorrhagic transformation score: Not Applicable Mass Lesion / Mass Effect: There is no evidence of an intracranial mass or extra-axial fluid collection. No significant mass effect. Chronic change: Chronic right cerebellar infarct. Parenchyma: There is no significant volume loss. Ventricles: The ventricles are within normal limits of size and configuration for age. Other: The visualized paranasal sinuses are grossly clear. The skull and visualized extracranial soft tissues are grossly normal. NECK: Soft tissues: Intubation. Spine: Alignment is normal. Mild degenerative changes are present. Lung apices: Evaluated separately. CT ARTERIOGRAM: Extracranial Circulation: Aortic Arch: There is a normal branching pattern from the aortic arch. There is no significant stenosis in the proximal brachiocephalic vessels. Carotid Stenosis: Right Common: No significant stenosis. Right Internal Carotid Plaque: No significant plaque formation. Right Internal Carotid Stenosis (% by NASCET Criteria): None seen in Left Common: No significant stenosis. Left Internal Carotid Plaque: No significant plaque formation. Left Internal Carotid Stenosis (% by NASCET Criteria): None significant Cervical Vertebral Arteries: Patency: Bilateral Dominance: Codominant Intracranial Circulation: Anterior Circulation: No large vessel occlusion or severe stenosis Vertebrobasilar Circulation: No large vessel occlusion or severe stenosis. No sizable aneurysm. Visualized major dural venous sinuses are patent. IMPRESSION: No acute intracranial abnormality. No acute abnormality involving the major extra or intracranial arteries. [place] Supervisor: CECILIA Transcribe Date/Time: Feb 16 2025 9:23P Dictated by : BYRON SRINIVASAN MD This examination was interpreted and the report reviewed and electronically signed by: BYRON SRINIVASAN MD on Feb 16 2025 9:34PM EST [id number] N Normal [facility] Comprehensive metabolic 2000 panelon 02-16-2025 Albumin [Mass/Vol] 2.3 g/dL Low 3.9-4.9 [facility] Comment on above: Order Comment: Speci men Type: BLOOD SPECIMENOrdering Facility: [facility] Address: [address] [place] [address] Performed By: #### 2 4323-8, ####[facility] LABORATORYCLIA [id number] [place] [address] [place] ALP [Catalytic activity/Vol] 286 U/L High 38-113 [facility] Comment on above: Order Comment: Speci men Type: BLOOD SPECIMENOrdering Facility: [facility] Address: [address] [place] [address] Performed By: #### 2 4323-8, ####[facility] LABORATORYCLIA [id number] [place] [address] [place] ALT With P-5'-P [Catalytic activity/Vol] 17 U/L Normal 10-54 [facility] Comment on above: Order Comment: Speci men Type: BLOOD SPECIMENOrdering Facility: [facility] Address: [address] [place] [address] Performed By: #### 2 4323-8, ####[facility] LABORATORYCLIA [id number] [place] [address] [place] Anion gap [Moles/Vol] 14 mmol/L Normal 8-15 [facility] Comment on above: Order Comment: Speci men Type: BLOOD SPECIMENOrdering Facility: [facility] Address: [address] [place] [address] Performed By: #### 2 4323-05, ####[facility] LABORATORYCLIA [id number] [place] [address] [place] AST With P-5'-P [Catalytic activity/Vol] 31 U/L Normal 14-40 [facility] Comment on above: Order Comment: Speci men Type: BLOOD SPECIMENOrdering Facility: [facility] Address: [address] [place] [address] Performed By: #### 2 4323-05, ####[facility] LABORATORYCLIA [id number] [place] [address] [place] Bilirubin [Mass/Vol] 0.9 mg/dL Normal 0.2-1.3 [facility] Comment on above: Order Comment: Speci men Type: BLOOD SPECIMENOrdering Facility: [facility] Address: [address] [place] [address] Performed By: #### 2 4323-05, ####[facility] LABORATORYCLIA [id number] [place] [address] [place] Calcium [Mass/Vol] 7.7 mg/dL Low 8.5-10.2 [facility] Comment on above: Order Comment: Speci men Type: BLOOD SPECIMENOrdering Facility: [facility] Address: [address] [place] [address] Performed By: #### 2 4323-05, ####[facility] LABORATORYCLIA [id number] [place] [address] [place] Chloride [Moles/Vol] 105 mmol/L Normal 98-107 [facility] Comment on above: Order Comment: Speci men Type: BLOOD SPECIMENOrdering Facility: [facility] Address: [address] [place] [address] Performed By: #### 2 4323-05, ####[facility] LABORATORYCLIA [id number] [place] [address] [place] CO2 [Moles/Vol] 17 mmol/L Low 22-30 [facility] Comment on above: Order Comment: Speci men Type: BLOOD SPECIMENOrdering Facility: [facility] Address: [address] [place] [address] Performed By: #### 2 4323-8, ####[facility] LABORATORYCLIA [id number] [place] [id number] [place] Creatinine [Mass/Vol] 2.35 mg/dL High 0.73-1.22 [facility] Comment on above: Order Comment: Speci men Type: BLOOD SPECIMENOrdering Facility: [facility] Address: [address] [place] [address] Performed By: #### 2 4323-8, ####[facility] WAYNECLIA [id number] [address] Creatinine and Glomerular filtration rate.predicted panel (S/P/Bld) 30 mL/min/1.73m??? Low >=60 [facility] Comment on above: Order Comment: Speci men Type: BLOOD SPECIMENOrdering Facility: [facility] Address: [address] [place] [address] Result Comment: Leena mated Glomerular Filtration Rate (eGFR) is calculated using the 2020 CKD-EPI creatinine equation. This equation utilizes serum creatinine, sex, and age as parameters. The creatinine assay has traceable calibration to isotope dilution-mass spectrometry. Refer to KDIGO guidelines for clinical interpretation. In patients with unstable renal function, e.g. those with acute kidney injury, the eGFR may not accurately reflect actual GFR. Performed By: #### 2 4323-8, ####[facility] LABORATORYCLIA [id number] [place] [id number] [place] Glucose [Mass/Vol] 131 mg/dL High 74-99 [facility] Comment on above: Order Comment: Speci men Type: BLOOD SPECIMENOrdering Facility: [facility] Address: [address] [place] [address] Result Comment: The [place] [employer] (ADA) provides guidance for cutoff values for fasting glucose and random glucose. The ADA defines fasting as no caloric intake for at least 8 hours. Fasting plasma glucose results between 100 to 125 mg/dL indicate increased risk for diabetes (prediabetes). Fasting plasma glucose results greater than or equal to 126 mg/dL meet the criteria for diagnosis of diabetes. In the absence of unequivocal hyperglycemia, results should be confirmed by repeat testing. In a patient with classic symptoms of hyperglycemia or hyperglycemic crisis, random plasma glucose results greater than or equal to 200 mg/dL meet the criteria for diagnosis of diabetes. Reference: Standards of Medical Care in Diabetes 2016, [employer] Association. Diabetes Care. 2016.39(Suppl 1). Performed By: #### 2 4328, ####[facility] LABORATORYCLIA [id number] [place] [address] [place] Potassium [Moles/Vol] 4.4 mmol/L Normal 3.7-5.1 [facility] Comment on above: Order Comment: Jg valdez Type: BLOOD SPECIMENOrdering Facility: [facility] Address: [address] [place] [address] Performed By: #### 2 4323-05, ####[facility] LABORATORYCLIA [id number] [place] [address] [place] Protein [Mass/Vol] 5.9 g/dL Low 6.3-8.0 [facility] Comment on above: Order Comment: Jg valdez Type: BLOOD SPECIMENOrdering Facility: [facility] Address: [address] [place] [address] Performed By: #### 2 4323-05, ####[facility] LABORATORYCLIA [id number] [place] [address] [place] Sodium [Moles/Vol] 136 mmol/L Normal 136-144 [facility] Comment on above: Order Comment: Jg valdez Type: BLOOD SPECIMENOrdering Facility: [facility] Address: [address] [place] [address] Performed By: #### 2 4323-05, ####[facility] LABORATORYCLIA [id number] [place] [id number] [place] Urea nitrogen [Mass/Vol] 33 mg/dL High 9-24 [facility] Comment on above: Order Comment: Speci men Type: BLOOD SPECIMENOrdering Facility: [facility] Address: [address] [place] [address] Performed By: #### 2 4323-8, ####[facility] LABORATORYCLIA [id number] [place] [id number] [place] ECG COMPLETEon 02-16-2025 ECG COMPLETE Ventricular Rate : 120 BPM Atrial Rate : 120 BPM P-R Interval : 152 ms QRS Duration : 88 ms Q-T Interval : 306 ms QTC Calculation(Bazett) : 432 ms Calculated P [place] : 35 degrees Calculated R [place] : 6 degrees Calculated T [place] : 45 degrees SINUS TACHYCARDIA POSSIBLE INFERIOR INFARCT , AGE UNDETERMINED CANNOT RULE OUT ANTERIOR INFARCT , AGE UNDETERMINED ABNORMAL ECG NO PREVIOUS ECGS AVAILABLE Confirmed by MAYKEL MANJARREZ MD ([id number]) on 02/20/2025 2:34:23 PM NAME : ANMOL REYNOLDS PID : [id number] : 1960 Gender : Male Race : ORD : [id number] Procedure Date : Feb 16 2025 19:16:55 Edit Date : Feb 20 2025 14:34:24 Diagnosis: SINUS TACHYCARDIA POSSIBLE INFERIOR INFARCT , AGE UNDETERMINED CANNOT RULE OUT ANTERIOR INFARCT , AGE UNDETERMINED ABNORMAL ECG NO PREVIOUS ECGS AVAILABLE Confirmed by MAYKEL MANJARREZ MD ([id number]) on 02/20/2025 2:34:23 PM Test Reason : Chest Pain Location : 4 : AKED EM Overread By : MAYKEL MANJARREZ MD Edited By : MAYKEL MANJARREZ MD Referred By : , Acquired by : LELAND AUGUST [facility] ED NOTEon 02-16-2025 ED NOTE HNO ID: [id number] Author: ROZ MIKE RN Service: ? Author Type: Registered Nurse Type: ED Notes Filed: 02/16/2025 23:23 Note Text: Icu resident at bedside talked with this RN about NG tube, this RN told to leave it in place for this time until further notice as it is not needed for anything significant at this time. [facility] ED NOTE HNO ID: [id number] Author: ROZ MIKE RN Service: ? Author Type: Registered Nurse Type: ED Notes Filed: 02/16/2025 21:56 Note Text: NG in right nare advanced as much as possible, per KUB, the NG is still not in stomach. MICU resident to assess when at bedside. [facility] ED NOTE HNO ID: [id number] Author: ROZ MIKE RN Service: ? Author Type: Registered Nurse Type: ED Notes Filed: 02/16/2025 22:06 Note Text: Mepilex applied to coccyx to prevent further skin berakdown. [facility] ED NOTE HNO ID: [id number] Author: ROZ MIKE RN Service: ? Author Type: Registered Nurse Type: ED Notes Filed: 02/16/2025 19:46 Note Text: Xray called at this time to confirm placement. [facility] ED NOTE HNO ID: [id number] Author: ROZ MIKE RN Service: ? Author Type: Registered Nurse Type: ED Notes Filed: 02/16/2025 19:44 Note Text: 100 mcg of fentanyl being administered at this time by LIBRADO Escamilla [facility] ED NOTE HNO ID: [id number] Author: ROZ MIKE RN Service: ? Author Type: Registered Nurse Type: ED Notes Filed: 02/16/2025 19:44 Note Text: Oxygen improved to 97%. [facility] ED NOTE HNO ID: [id number] Author: ROZ MIKE RN Service: ? Author Type: Registered Nurse Type: ED Notes Filed: 02/16/2025 19:44 Note Text: 7.5 tube placed at this time, bilateral breath sounds auscultated, ETCO2 31. 24 at the teeth. Pt oxygen 71% and HR 132. [facility] ED NOTE HNO ID: [id number] Author: ROZ MIKE RN Service: ? Author Type: Registered Nurse Type: ED Notes Filed: 02/16/2025 19:40 Note Text: 100 of rocuronium given at this time. [facility] ED NOTE HNO ID: [id number] Author: ROZ MIKE RN Service: ? Author Type: Registered Nurse Type: ED Notes Filed: 02/16/2025 19:39 Note Text: 30 of etomidate given at this time. [facility] ED NOTE HNO ID: [id number] Author: ROZ MIKE RN Service: ? Author Type: Registered Nurse Type: ED Notes Filed: 02/16/2025 19:38 Note Text: Levo tubing was clamped, levo decreased to 7 again at this time. [facility] ED NOTE HNO ID: [id number] Author: ROZ MIKE RN Service: ? Author Type: Registered Nurse Type: ED Notes Filed: 02/16/2025 19:36 Note Text: Preparing to intubate patient, using 30 of etomidate for intubation. [facility] ED NOTE HNO ID: [id number] Author: ROZ MIKE RN Service: ? Author Type: Registered Nurse Type: ED Notes Filed: 02/16/2025 19:36 Note Text: Levo increased to 10 at this time [facility] ED NOTE HNO ID: [id number] Author: ROZ MIKE RN Service: ? Author Type: Registered Nurse Type: ED Notes Filed: 02/16/2025 19:32 Note Text: Levophed started at 7 at this time. [facility] ED NOTE HNO ID: [id number] Author: ROZ MIKE RN Service: ? Author Type: Registered Nurse Type: ED Notes Filed: 02/16/2025 19:32 Note Text: Patient opening eyes at this time, but not following commands at this time. [facility] ED NOTE HNO ID: [id number] Author: ROZ MIKE RN Service: ? Author Type: Registered Nurse Type: ED Notes Filed: 02/16/2025 19:22 Note Text: Line placed in RAC was placed in artery, line removed. Pressure applied, no medications were administered through this access point. [facility] ED NOTE HNO ID: [id number] Author: ROZ MIKE RN Service: ? Author Type: Registered Nurse Type: ED Notes Filed: 02/16/2025 19:16 Note Text: Patient [facility] from the [facility] [place] unresponsive. NO responsive to verbal stimuli, only to painful. Pt LKW was 1700, found unresponsive. [facility] ED NOTE HNO ID: [id number] Author: ROZ MIKE RN Service: ? Author Type: Registered Nurse Type: ED Notes Filed: 02/16/2025 19:15 Note Text: Normal [facility] ED NOTE HNO ID: [id number] Author: ROZ MIKE RN Service: ? Author Type: Registered Nurse Type: ED Notes Filed: 02/16/2025 19:25 Note Text: 2L up at this time. 1 L LR and 1L NS. [facility] ED NOTE HNO ID: [id number] Author: ROZ MIKE RN Service: ? Author Type: Registered Nurse Type: ED Notes Filed: 02/16/2025 19:36 Note Text: Patient placed on zoll pads at this time [facility] ED PROV NOTEon 02-16-2025 ED PROV NOTE HNO ID: [id number] Author: KATHRIN MEHTA MD Service: Emergency Medicine Author Type: Resident Type: ED Provider Notes Filed: 02/17/2025 00:30 Note Text: Attestation signed by Kathrin Mehta MD at 02/17/2025 12:30 AM Attending Note I evaluated the patient and personally participated in the thomas components. I agree with the resident's findings and plan as documented and have discussed the case and management of the patient's care with the resident. ED Course as of 02/17/25 0029 Kathrin Mehta's Documentation Fabiola February 16, 20251952 Patient here via EMS from care home for evaluation of hypotension and altered mental status. Patient has a history of paraplegia decubitus ulcers and for the last few hours has been minimally responsive. He was hypotensive EMS was called they started a fluid resuscitation and he was brought to the emergency room for evaluation. He would open his eyes to his name that improved with continuing fluid resuscitation but he did not appear to be protecting his airway concern was for potential airway compromise secondary to his likely sepsis. Given that he is hypotensive before the airway could be protected definitively he was fluid resuscitated and started on Levophed. Blood pressure improved to 113/68 respirate 18 pulse is 130s. Well-developed well-nourished male minimally responsive. He does have a history of either quadriplegia or paraplegia. He will open his eyes to his name. Is in chronic indwelling [place] has bloody dark concentrated urine with lots of debris. Abdomen slightly distended not obviously peritoneal but again a good examination is hard to get we will examine his sacrum once he is stabilized we will roll him. Medical decision making sepsis most likely UTI possible skin gosia sepsis plan will change his Sant[place] he is putting out good urine again its full of debris he was started on Levophed we will get a CAT scan of the brain to rule out intracranial pathology concern for pneumonia or intra-abdominal pathology will also get x-rays of the CAT scans of the chest abdomen and pelvis. He is started on meropenem after consultation with pharmacy sepsis team and review of previous urine cultures. Others' Documentation Fabiola February 16, 20252021 Daughter updated [AC] ED Course User Index [AC] Ruthie Richardson DO Clinical Impressions as of 02/17/25 0029 Septic shock (HCC) Urinary tract infection associated with indwelling urethral catheter, initial encounter Altered mental status, unspecified altered mental status type MK (acute kidney injury) I was present for the thomas portions of the procedure. Kathrin Mehta MD Critical Care I spent a total of 60 minutes of critical care time in the evaluation and management of this patient. This was necessary to treat or prevent deterioration of the following condition(s): Respiratory impairment and Shock, which the patient had and/or has a high probability of suddenly developing. The patient received intubation, sepsis team, IV Fluids, Pressor Drugs, and Consultation by MICU during the time that critical care was provided.I discussed the plan of care with the RESIDENT and agree with the findings documented. Critical care time excludes separately billed procedures. Kathrin Mehta MD Signature: Kathrin Mehta MD Date: 02/17/2025 Time: 12:29 AM ED Provider Note Patient Name: Anmol Reynolds : 1960 SERVICE DATE: 02/16/25 History Patient presents with: Unresponsive: Pt from [facility] for being found unresponsive. Pt normally AANDOx4, but had a spinal cord injury resulting in need for nursing facility. Pt LKW was 1700 today. Arrives only arousable to pain, unable to follow commands. Arrives pale, on NRB, hypotensive, and tachycardic. Patient is a 64-year-old male who presents from [facility] for being unresponsive. Patient is a history of paraplegia secondary to spinal cord injury. Last known well was 1700. Patient unable to follow commands. Hypotensive, receiving fluids via EMS on arrival. Tachycardic. 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 Normal [facility] HISTORY PHYSICALon HISTORY PHYSICAL HNO ID: [id number] Author: HOWARD GAMA MD Service: Critical Care Author Type: Physician Type: H&P Filed: 02/17/2025 02:44 Note Text: [facility] STAFF PHYSICIAN NOTE OF PERSONAL INVOLVEMENT IN CARE I have reviewed the history and physical examination obtained and documented by the Resident. I have personally performed a face to face assessment of the patient and have personally participated on the thomas components of the history, exam and medical decision making. I have discussed the case and management of the patient's care. The following comments revise or confirm relevant thomas components of the note. IMPRESSION: 64 y/o M with extensive medical hx who presented from care home for AMS. In the ED, was obtunded and intubated. Found to be hypotensive and tachycardic, eventually requiring vasopressors. Workup revealed MK, UTI, and multiple other findings. CT with multiple findings including coiling of stents and bibasilar lung opacities. MICU consulted septic shock. #Septic shock, suspect urinary source #Acute hypoxemic respiratory failure in the setting of septic shock #Acute toxic metabolic encephalopathy #MK #Bibasilar consolidations- PNA vs atelectasis #Renal calculi present #Hx of bilateral hydro #Hx of paraplegia #Hx of L2-L3 spinal abscess with multiple complications #Hx of DMI PLAN: - Admit to ICU - Continue supportive care on MV - Repeat VBG - Adjust TV and RR as needed - Daily SAT/SBT - Continue vasopressors and wean to MAP >65 - Agree with broad abx given hx of enterococcus and ESBL klebsiella - ID consult - Follow cultures - Monitor renal fxn - Urology consult - Need to clarify code status - Reassess Patient/Family Updated This patient has a high probability of sudden, clinically significant deterioration, which requires the highest level of physician preparedness to intervene urgently. I managed/supervised life or organ supporting interventions that required frequent physician assessment. I devoted my full attention to the direct care of this patient for the amount of time indicated below. Time I spent with family or surrogate(s) is included only if the patient was incapable of providing the necessary information or participating in medical decision making. Time devoted to teaching and to any procedures I billed separately is not included. Critical Care Documentation: The patient has the following organ/system impairment(s): Septic shock Time spent providing critical care services: 50 minutes. SIGNATURE: Howard Gama MD [facility] DATE of SERVICE: 02/16/2025 Normal [facility] HISTORY PHYSICAL HNO ID: [id number] Author: HOWARD GAMA MD Service: Critical Care Author Type: Physician Type: H&P Filed: 02/17/2025 18:50 Note Text: MEDICAL INTENSIVE CARE UNIT HANDP PATIENT NAME: Anmol Reynolds REASON FOR ADMISSION:Septic shock Admission Date: 02/16/2025 Subjective HPI Anmol Reynolds is a 64 year old male with PMH L2-L3 epidural abscess 01/14/22 C/b spinal stenosis, MRSA bacteremia, paraplegia, and chronic santana Hx ESBL klebsiella pneumoniae UTI S/p L2-L3 laminectomy and posterior fusion T1DM, last HbA1C 6.5 - 01/23/2022 Bilateral hydronephrosis s/p ureteral stent placement April 2024 Chronic sacral osteomyelitis Chronic normocytic anemia Chronic hematuria MICU was consulted for septic shock, altered mental status, and failure to protect airway requiring intubation. The patient initially presented to the [facility] ED on February 16, 2025 after being [facility] un[facility], last known well 1700 today. ED Course: VS: BP 79/52, HR 121, RR 22, T 100 ?F, SpO2 100% on NRB Pertinent Labs: 02/16/2025 WBC 10.29 RBC 3.85 (L) Hemoglobin 11.6 (L) Hematocrit 34.9 (L) MCV 90.6 Platelet Count 108 (L) Abs Neut (ANC) 9.26 (H) Protein, Total 5.9 (L) Albumin 2.3 (L) Calcium 7.7 (L) Bilirubin, Total 0.9 Alkaline Phosphatase 286 (H) AST 31 ALT 17 Glucose 131 (H) BUN 33 (H) Creatinine 2.35 (H) Sodium 136 Potassium 4.4 Chloride 105 CO2 17 (L) Anion Gap 14 eGFR 30 (L) Magnesium 1.6 (L) VB02/16/2025 pH,Venous(POCT) 7.448 ! pCO2,Venous(POCT) 25.0 ! pO2,Venous(POCT) 117.0 ! HCO3,Venous(POCT) 17.0 ! Lactate (POCT) 2.4 ! UA: 02/16/2025 Color [place] ! Clarity Dense Turbid ! Glucose, Urine Negative Bilirubin, Urine Negative Ketones, Urine Negative Specific [place], Ur 1.037 (H) Hemoglobin/Blood,Ur 3+ ! pH, Urine 6.5 Protein, Urine 2+ ! Urobilinogen Normal Nitrites Negative Leukest 500 Da/uL ! WBC, Urine >25 /HPF ! RBC, Urine >25 /HPF ! Bacteria Many ! Non-Squamous Epithelial Cells Moderate ! EKG: QTc 432 SINUS TACHYCARDIA POSSIBLE INFERIOR INFARCT , AGE UNDETERMINED CANNOT RULE OUT ANTERIOR INFARCT , AGE UNDETERMINED Abdomen XR Lines and tubes as above (including proximally terminating feeding tube that requires advancement). Partially imaged nonspecific/nonobstru ctive bowel gas pattern with some abundance of colonic stool. Head/Neck CTA + Brain CT: No acute intracranial abnormality. No acute abnormality involving the major extra or intracranial arteries. CT abdomen/pelvis: 1. Bilateral ureteral stents with the right proximal end coiled in a upper pole calyx and the left proximal end coiled in a upper pole calyx. The right and left distal ends are coiled in the urinary bladder. 2. Left kidney shows slight delayed nephrogram with mild to moderate hydronephrosis and mild left hydronephrosis. 3. Left renal stones with largest measuring 1.1 cm lower pole. No left ureteral stones. 4. Mild bilateral urothelial thickening and enhancement of the right and left renal pelvises left greater than right and the left ureter which could be of infectious or inflammatory etiology versus changes from a recently passed stone. 5. Urinary bladder is nondistended with indwelling Santana catheter and a couple small foci of nondependent gas. There is bladder wall thickening which could be related to decompressed state versus cystitis in the appropriate clinical setting, correlate for cystitis. 6. Enteric tube present with the tip above the gastroesophageal junction which needs advanced. 7. Wall thickening of the distal sigmoid colon and rectum suspicious for proctocolitis. CT Chest: 1. Left upper lobe ground glass opacities favor pulmonary contusions in the setting of trauma. 2. Trace pleural effusions and bilateral posterior lower lobe mucus plugging with postobstructive atelectasis or pneumonia, greater on the left. 3. Minimal subcutaneous emphysema in the left pectoralis major muscle. Additional foci of soft tissue gas throughout multiple vessels is likely iatrogenic. 4. Enteric tube terminates at the gastroesophageal junction and should be advanced. Initial management: 1L NS @ 1915 1L LR @ 1914 Norepinephrine gtt @ 1931 2 g Ceftriaxone @ 1955 Escalated to 2 g meropenem @ 2102 1 g magnesium @ 2104 1L LR @ 2129 (3L total) 1.5 g Vancomycin @ 2151 Blood cultures x 2 drawn Urine culture pending On MICU's initial evaluation: BP 102/60 Pulse (!) 132 Temp (!) 39.3 ?C (102.7 ?F) (Rectal) Resp 16 Wt 100.5 kg (221 lb 9 oz) SpO2 98% BMI 27.69 kg/m? Review of Systems - unable to be obtained as patient intubated/sedated PAST MEDICAL HISTORY Diagnosis Date Arthritis Chronic low back pain 11/26/2021 Chronic pain of right ankle 11/26/2021 Diabetes (HCC) Elevated CA 19-9 level 08/21/2021 Epidural abscess (HCC) 01/04/2022 MRSA bacteremia 11/27/2021 Neuropathy N (more content not included)... Normal [facility] Magnesium SerPl-mCncon 02-16 Magnesium [Mass/Vol] 1.6 mg/dL Low 1.7-2.3 [facility] Comment on above: Order Comment: Speci men Type: BLOOD SPECIMENOrdering Facility: [facility] Address: [address] [place] [address] Performed By: #### 2 4323-8, 95421-5 ####[facility] LABORATORYCLIA [id number] [place] [address] [place] Urinalysis complete panel (U )on 02-16-2025 Bacteria LM.HPF (Urine sed) [#/Area] Many Abnormal None Seen [facility] Comment on above: Order Comment: Speci men Type: URINE SPECIMENOrdering Facility: [facility] Address: [address] [place] [address] Performed By: #### 2 4356-8, 630-4 ####[facility] LABORATORYCLIA [id number] [place] [address] [place] Bilirubin Ql (U) Negative Normal Negative [facility] Comment on above: Order Comment: Speci men Type: URINE SPECIMENOrdering Facility: [facility] Address: [address] [place] [address] Performed By: #### 2 43568, 630-4 ####[facility] LABORATORYCLIA [id number] [place], [place] [address] [place] [address] [place] Clarity (Unsp spec) Dense Turbid Abnormal Clear [facility] Comment on above: Order Comment: Speci men Type: URINE SPECIMENOrdering Facility: [facility] Address: [address] [place] [address] Performed By: #### 2 4356-8, 630-4 ####[facility] LABORATORYCLIA [id number] [address] Color (U) [place] Abnormal yellow [facility] Comment on above: Order Comment: Speci men Type: URINE SPECIMENOrdering Facility: [facility] Address: [address] [place] [address] Performed By: #### 2 4356, 4 ####[facility] LABORATORYCLIA [id number] [address] Epithelial cells LM.HPF (Urine sed) [#/Area] Moderate Abnormal None Seen [facility] Comment on above: Order Comment: Speci men Type: URINE SPECIMENOrdering Facility: [facility] Address: [address] [place] [address] Performed By: #### 2 4356-8, -4 ####[facility] LABORATORYCLIA [id number] [address] [place] Glucose Test strip (U) [Mass/Vol] Negative Normal Trace, Negative [facility] Comment on above: Order Comment: Speci men Type: URINE SPECIMENOrdering Facility: [facility] Address: [address] [place] [address] Performed By: #### 2 4356-8, 630-4 ####[facility] LABORATORYCLIA [id number] [address] [place] Hemoglobin Ql (U) 3+ Abnormal Negative, Trace [facility] Comment on above: Order Comment: Speci men Type: URINE SPECIMENOrdering Facility: [facility] Address: [address] [place] [address] Performed By: #### 2 4356-8, 630-4 ####[facility] LABORATORYCLIA [id number] [place] [address] [place] Ketones Ql (U) Negative Normal Negative, Trace [facility] Comment on above: Order Comment: Speci men Type: URINE SPECIMENOrdering Facility: [facility] Address: [address] [place] [address] Performed By: #### 2 4356-8, 630-4 ####[facility] LABORATORYCLIA [id number] [address] Leukocyte esterase Test strip Ql (U) 500 Da/uL Abnormal Negative, 25 Da/uL [facility] Comment on above: Order Comment: Speci men Type: URINE SPECIMENOrdering Facility: [facility] Address: [address] [place] [address] Performed By: #### 2 4356-8, 630-4 ####[facility] LABORATORYCLIA [id number] [address] Nitrite Ql (U) Negative Normal Negative [facility] Comment on above: Order Comment: Speci men Type: URINE SPECIMENOrdering Facility: [facility] Address: [address] [place] [address] Performed By: #### 2 4356-8, 630-4 ####[facility] LABORATORYCLIA [id number] [address] [place] pH (U) 6.5 [pH] Normal 5.0-8.0 [facility] Comment on above: Order Comment: Speci men Type: URINE SPECIMENOrdering Facility: [facility] Address: [address] [place] [address] Performed By: #### 2 4356-8, 630-4 ####[facility] LABORATORYCLIA [id number] [address] [place] Protein (U) [Mass/Vol] 2+ Abnormal Trace , Negative [facility] Comment on above: Order Comment: Speci men Type: URINE SPECIMENOrdering Facility: [facility] Address: [address] [place] [address] Performed By: #### 2 4356-8, 630-4 ####[facility] LABORATORYCLIA [id number] [place] [address] [place] RBC LM.HPF (Urine sed) [#/Area] /[HPF] Abnormal 0-3 /HPF [facility] Comment on above: Order Comment: Speci men Type: URINE SPECIMENOrdering Facility: [facility] Address: [address] [place] [address] Performed By: #### 2 4356-8, 630-4 ####[facility] LABORATORYCLIA [id number] [address] [place] Specific gravity (U) [Rel density] 1.037 High 1.005-1.030 [facility] Comment on above: Order Comment: Speci men Type: URINE SPECIMENOrdering Facility: [facility] Address: [address] [place] [address] Performed By: #### 2 4356-8, 2284 ####[facility] LABORATORYCLIA [id number] [address] Urobilinogen Ql (U) Normal Normal Normal [facility] Comment on above: Order Comment: Speci men Type: URINE SPECIMENOrdering Facility: [facility] Address: [address] [place] [address] Performed By: #### 2 4356-8, 630-4 ####[facility] LABORATORYCLIA [id number] [address] [place] WBC LM.HPF (Urine sed) [#/Area] /[HPF] Abnormal 0-5 /HPF [facility] Comment on above: Order Comment: Speci men Type: URINE SPECIMENOrdering Facility: [facility] Address: [address] [place] [address] Performed By: #### 2 4356-8, 630-4 ####[facility] LABORATORYCLIA [id number] [place] [address] [place] XR ABDOMEN 1V SUPINEon 02-16 XR ABDOMEN 1V SUPINE * * *Final Report* * * DATE OF EXAM: Feb 16 2025 9:52PM [id number] - XR ABDOMEN 1V SUPINE / PROCEDURE REASON: Evaluate tube, line or lead position * * * * Physician Interpretation * * * * EXAM: XR ABDOMEN 1V SUPINE CLINICAL INFORMATION ( PROVIDED BY ORDERING CLINICIAN) : Evaluate tube, line or lead position COMPARISON: 02/16/2025 FINDINGS: See impression. IMPRESSION: Enteric tube tip projects over the distal esophagus. Advancement recommended. Bilateral ureteral stents partially visualized. Spinal hardware. EKG leads. No dilated gas-filled bowel loops. [place] Supervisor: CECILIA Transcribe Date/Time: Feb 16 2025 10:58P Dictated by : LAURYN ELLINGTON MD This examination was interpreted and the report reviewed and electronically signed by: LAURYN ELLINGTON MD on Feb 16 2025 10:59PM EST [id number] Normal [facility] XR ABDOMEN 1V SUPINE * * *Final Report* * * DATE OF EXAM: Feb 16 2025 8:11PM [id number] - XR ABDOMEN 1V SUPINE / PROCEDURE REASON: Evaluate tube, line or lead position * * * * Physician Interpretation * * * * EXAMINATION: XR ABDOMEN 1V SUPINE CLINICAL HISTORY: Evaluate tube, line or lead position. Technique: XR ABDOMEN 1V SUPINE -- NOT APPLICABLE with 1 views on 2 images COMPARISON: None available. RESULT: Lines, tubes, and devices: Partially imaged nasogastric tube (with side-port projecting over the distal esophagus and tip over the gastroesophageal junction, and advancement should be made), bilateral double-J ureteral stents (with visualized proximal portions projecting over the upper abdomen) . Also noted overlying EKG leads, nonspecific tubing overlying the LEFT thorax/abdomen. Spine hardware. Nonspecific small/0.6 cm RIGHT lower abdominal radiodensity of probable fecalith. Partially imaged bowel gas pattern that is nonspecific/nonobstru cted. About moderate gaseous distention of the stomach and of some colonic segments. Some abundance of colonic stool. Nonspecific mild-moderate left-sided and mild right-sided basal pleural-parenchymal opacities. IMPRESSION: Lines and tubes as above (including proximally terminating feeding tube that requires advancement). Partially imaged nonspecific/nonobstru ctive bowel gas pattern with some abundance of colonic stool. Other details above. [place] Supervisor: [facility] Transcribe Date/Time: Feb 16 2025 9:11P Dictated by : KELSY CARDOZA MD This examination was interpreted and the report reviewed and electronically signed by: KELSY CARDOZA MD on Feb 16 2025 9:14PM EST [id number] N Normal [facility] XR CHEST 1V FRONTALon 2024 XR CHEST 1V FRONTAL * * *Final Report* * * DATE OF EXAM: Feb 16 2025 8:11PM [id number] - XR CHEST 1V FRONTAL / PROCEDURE REASON: Evaluate tube, line, or lead position * * * * Physician Interpretation * * * * EXAMINATION: CHEST RADIOGRAPH (SINGLE VIEW AP OR PA) CLINICAL HISTORY: Evaluate tube, line, or lead position MQ: XC1_5 Comparison: None. RESULT: Lines, tubes, and devices: An ET tube seen ending approximately 6 cm above the kevin and an NG tube seen extending into the distal esophagus are in place. Suggest advancement of the NG tube. Lungs and pleura: There is elevation of the left hemidiaphragm with a left retrocardiac infiltrate/atelectasi s. No consolidation. No lung mass. There is a small left pleural effusion. Cardiomediastinal silhouette: Normal cardiomediastinal silhouette. Other: The visualized bony thorax appears unremarkable. IMPRESSION: NG tube ending in the distal esophagus, suggest further advancement. [place] Supervisor: [facility] Transcribe Date/Time: Feb 16 2025 8:45P Dictated by : PATY US MD This examination was interpreted and the report reviewed and electronically signed by: PATY US MD on Feb 16 2025 8:47PM EST [id number] Normal [facility] Bilirubin Test strip Ql (U)O rdered By: Tab Dupont on 02-15-2025 Bilirubin Ql (U) Negative Negative [facility] Ketones Test strip Ql (U)Ord ered By: Tab Dupont on 02-15-2025 Ketones Ql (U) Negative Negative [facility] Microscopic analysis of urin e for red blood cells (RBC)Ordered By: Tab Dupont on 02-15-2025 Microscopic analysis of urine for red blood cells (RBC) 10-25 SEEN /hpf 0-5 [facility] Mucus LM Ql (Urine sed)Order ed By: Tab Dupont on 02-15-2025 Mucus Ql (Urine sed) 0 SEEN /hpf [facility] Nitrite Test strip Ql (U)Ord ered By: Tab Dupont on 02-15-2025 Nitrite Ql (U) Positive High Negative [facility] Protein Test strip Ql (U)Ord ered By: Tab Dupont on 02-15-2025 Protein Ql (U) 100 mg/dl High Negative [facility] Squamous epithelial cells de tection in urine sediment by light microscopyOrdered By: Tab Dupont on 02-15-2025 Epithelial cells.squamous LM Ql (Urine sed) 0 SEEN /hpf 0- [facility] Urinalysis, Completeon 02-15 RBC 10-25 SEEN Normal 0-5 [facility] Comment on above: Order Comment: 313.2 Performed By: #### L 500.2500, L100.0500 #### [facility] [address] [place], [address] BACTERIA 2+ /hpf Normal None Seen [facility] Comment on above: Order Comment: 313.2 Performed By: #### L 500.2500, L100.0500 #### [facility] [address] [place], [address] WBC 25-50 SEEN Normal 0-5 [facility] Comment on above: Order Comment: 313.2 Performed By: #### L 500.2500, L100.0500 #### [facility] [address] [place], [address] EPI,SQUAMOUS 0 SEEN Normal [address] [place] [address] Comment on above: Order Comment: 313.2 Performed By: #### L 500.2500, L100.0500 #### [facility] [address] [facility] [id number] Mucus Ql (Urine sed) 0 SEEN Normal [facility] Comment on above: Order Comment: 313.2 Performed By: #### L 500.2500, L100.0500 #### [facility] [address] [place], [place], [id number] Urine clarityOrdered By: Regino Dupont on 02-15-2025 Clarity (U) Sl. Cloudy Clear [facility] Urine color determinationOrd ered By: Tab Dupont on 02-15-2025 Color (U) Yellow Yellow [facility] Urine cultureOrdered By: Regino Dupont on 02-15-2025 Bacteria identified Cx Nom (U) Citrobacter freundii Abnormal [facility] Bacteria identified Cx Nom (U) Providencia stuartii Abnormal [facility] Bacteria identified Cx Nom (U) Proteus mirabilis Abnormal [facility] Bacteria identified Cx Nom (U) Enterococcus faecalis Abnormal [facility] Urine glucose detectionOrder ed By: Tab Dupont on 02-15-2025 Glucose Ql (U) Normal mg/dl Normal [facility] Urine leukocyte esterase det ection by dipstickOrdered By: Tab Dupont on 02-15-2025 Leukocyte esterase Test strip Ql (U) 500 /ul High Negative [facility] Urine pHOrdered By: Tab cordova on 02-15-2025 pH (U) 6.5 [pH] 5.0 - 8.0 [facility] Urine sediment bacteria coun t by microscopy (number/high power field)Ordered By: Tab Dupont on 02-15-2025 Bacteria LM.HPF (Urine sed) [#/Area] 2 /[HPF] None Seen [facility] Urine specific gravity measu rementOrdered By: Tab Dupont on 02-15-2025 Specific gravity (U) [Rel density] 1.010 1.002-1.030 [facility] Urine urobilinogen measureme ntOrdered By: Tab Dupont on 02-15-2025 Urobilinogen Ql (U) Normal mg/dl Normal [facility] White blood cell countOrdere d By: Tab Dupont on 02-15-2025 White blood cell count 25-50 SEEN /hpf 0-5 [facility] CNOVon 01-31-2025 CNOV Office Visit ([facility] ) ANMOL REYNOLDS ([id number]) 1960 M Date Time Provider Department 01/31/25 1:30 PM MILAD GOODSON [facility] During your visit today, we recorded the following information about you: Temperature Pulse Respiration Blood pressure 98.6 degrees 80/minute 18/minute 136/90 Rj Brooks, RN 01/31/2025 2:59 PM Addendum Nursing Documentation Pertinent Medical History: paraplegia, MRSA, osteomyelitis, UTI, DM2, neuropathy, pyelonephritis, Wound Etiology according to patient: sacrum wound has had for four years per pt Patient arrived via: self in motorized wheelchair [facility] Consent captured for debridement per (Provider) and good until Special Instructions (for example, patient stands at the bedside for exam/dressing): bed Anticoagulant Therapy: aspirin Living Situation (ie... Apartment, house, [place] Who [facility] with [facility]: facility Who will be performing wound care: wound care nurse Available Support System: mom and daughter In-Home Assist Devices: motorized wheelchair Occupation: ie..Retired or Working: retired Provider seeing patient: Milad Goodson MD WOUND ASSESSMENT: Refer to Provider's Wound Assessment Note VASCULAR ASSESSMENT BY PROVIDER: N/A CHF History: no Smoking: yes 6 cigarettes at the most Education: EDEMA: n/a Right foot: Right calf: Left foot: Left Calf: Other: MEASUREMENTS: in CM n/a Right Calf: Right Ankle: Left Calf: Left Ankle: Length: ROGERIO'S Left: Right: Brachial Pressure: HR: WOUND PHOTOGRAPHY: YES x 2 , date taken: 01/31/25 DEBRIDEMENT PROCEDURE BY PROVIDER: Anesthetic Used: N/A applied per color straining bag washer # 1 AND 2 Other procedure: Specimen collected: WOUND TREATMENT PER MD ORDER: Wounds cleansed by mechanical debridement to allow provider to visualize wound base WOUND # 1 LOCATION: Sacrum L: 1.4 cm x W: 0.3 cm x D: 0.8 cm Undermining 0200: 0.5 cm 0300: 0.6 cm 0600: 1.0 WOUND # 2 LOCATION:Left ischium L: 1.5 cm x W: 1.8 cm x D: 0.2 cm Cleansed with: vashe Applied to [place]-wound skin: skin prep Applied to wound bed: calcium alginate AG Covered and secured with: 4x4 [place] SAP Other: COMPRESSION: N/A DME: [facility] order date __ DME: [employer] , PH: [phone] SPECIAL NEEDS: Coordination of care N/A Emotional support N/A OR set-up N/A Pharmaceutical Sales Representative N/A Incontinence needs N/A DISCHARGED in stable condition to: facility in motorized wheelchair PLAN/ORDERS: - Return to the Wound Center to see Milad Goodson MD in 6 weeks. - Blood work ordered please go to any [facility] lab. - Please send patient with medication list at next appointment. - Continue aggressive nutritional support to assist wound healing - CAT Scans AND MRI need to be scheduled through Central Scheduling. Call [phone].(If applicable) EDUCATION: The patient/family was instructed how to cleanse the wound(s). Visual demonstration on how to apply the dressing with teach back method. Signs AND symptoms of infection were reviewed: Increased redness, swelling, pain, green/yellow drainage, fever and/or chills would all need to be evaluated by a Physician. Patient received typed home-going wound care instructions and has expressed intent to comply. Due to the cold and flu season approaching us, if you have any symptoms such as a cough, fever, chills, nausea, vomiting, diarrhea, and/or body aches, please call and reschedule your appointment in the Wound Center. OTHER EDUCATION by RN: follow up, lab work Education performed regarding lymphedema/edema: Elevation of extremity above the heart for 30 minutes three times daily and as needed Exercise such as writing the ABC's with your toes in the air, walking and/or calf pumps Wearing compression as ordered by provider Diet controlling of sodium as instructed by provider Use of medication to help control edema. - UNIVERSAL PROTOCOL / SAFETY CHECKLIST N/a ___ Current HBOT Status: Active or Complete - see screening below WOUND CENTER HYPERBARIC OXYGEN THERAPY SCREENING 1. Is the patient diabetic? (If No, skip to question 5) Yes 2. Does the patient have a lower extremity wound? No 3. Is there exposed/involved tendon or bone? No 4. Has the wound been present for 30 days? Yes If Yes to ALL questions above, consult the Hyperbaric Center 5. Has the patient been diagnosed with osteomyelitis? Yes 6. Has the patient had a previous skin graft or flap at the wound? No 7. Has the patient had or been offered vascular intervention/evaluati on? Yes 8. Does the p (more content not included)... Normal [facility] Anion gap in Serum or Plasma Ordered By: Tab Dupont on 01-09-2025 Anion gap [Moles/Vol] 12 mmol/L 02-16 [facility] BUN/creatinine ratioOrdered By: Tab Dupont on 01-09-2025 Urea nitrogen/Creatinine [Mass ratio] 17.9 mg/mg 07-24 [facility] Basic Metabolic Profile (BMP )on 01-09-2025 BUN/CRE 17.9 RATIO Normal 07-24 [facility] Comment on above: Order Comment: 313.2 Performed By: #### L 501.6710, L101.9900, L100.0500 #### [facility] [address] [place], [address] Calcium [Mass/Vol] 8.7 mg/dL Normal 7.6-11.0 [facility] Comment on above: Order Comment: 313.2 Performed By: #### L 501.6710, L101.9900, L100.0500 #### [facility] [address] [place], [address] Chloride [Moles/Vol] 110 mmol/L High 98-108 [facility] Comment on above: Order Comment: 313.2 Performed By: #### L 501.6710, L101.9900, L100.0500 #### [facility] [address] [place], [address] CO2 [Moles/Vol] 19.2 mmol/L Low 21.0-32.0 [facility] Comment on above: Order Comment: 313.2 Performed By: #### L 501.6710, L101.9900, L100.0500 #### [facility] [address] [place], [address] Creatinine [Mass/Vol] 0.42 mg/dL Low 0.70-1.20 [facility] Comment on above: Order Comment: 313.2 Performed By: #### L 501.6710, L101.9900, L100.0500 #### [facility] [address] [place], [address] GAP 12 Normal 5-15 [facility] Comment on above: Order Comment: 313.2 Performed By: #### L 501.6710, L101.9900, L100.0500 #### [facility] [address] [place], [address] GFR/1.73 sq M.predicted among non-blacks MDRD (S/P/Bld) [Vol rate/Area] 121 mL/min/{1.73_m2} Normal >60 [facility] Comment on above: Order Comment: 313.2 Result Comment: mL/m in/1.73m2 CKD-EPI Creatinine Equation (2020) Performed By: #### L 501.6710, L101.9900, L100.0500 #### [facility] [address] [place], [address] Glucose [Mass/Vol] 120 mg/dL High 70-99 [facility] Comment on above: Order Comment: 313.2 Performed By: #### L 501.6710, L101.9900, L100.0500 #### [facility] [address] [place], [address] Potassium [Moles/Vol] 4.0 mmol/L Normal 3.3-5.1 [facility] Comment on above: Order Comment: 313.2 Result Comment: Hemo lysis present, Results??could be affected. ?? Performed By: #### L 501.6710, L101.9900, L100.0500 #### [facility] [address] [place], [address] Sodium [Moles/Vol] 141 mmol/L Normal 133-145 [facility] Comment on above: Order Comment: 313.2 Performed By: #### L 501.6710, L101.9900, L100.0500 #### [facility] [address] [place], [address] Urea nitrogen [Mass/Vol] 8 mg/dL Normal 4-19 [facility] Comment on above: Order Comment: 313.2 Performed By: #### L 501.6710, L101.9900, L100.0500 #### [facility] [address] [place], [address] CBC-Complete Blood Cnt No Di ffon 01-09-2025 Erythrocyte distribution width (RBC) [Ratio] 13.9 % Normal 11.6-14.6 [facility] Comment on above: Order Comment: 313.2 Performed By: #### L 501.6710, L101.9900, L100.0500 #### [facility] [address] [place], [address] Hematocrit (Bld) [Volume fraction] 39.3 % Low 40-54 [facility] Comment on above: Order Comment: 313.2 Performed By: #### L 501.6710, L101.9900, L100.0500 #### [facility] [address] [place], [address] Hemoglobin (Bld) [Mass/Vol] 13.1 g/dL Normal 13.0-16.5 [facility] Comment on above: Order Comment: 313.2 Performed By: #### L 501.6710, L101.9900, L100.0500 #### [facility] [address] [place], [address] MCH (RBC) [Entitic mass] 30.9 pg Normal 27.0-32.0 [facility] Comment on above: Order Comment: 313.2 Performed By: #### L 501.6710, L101.9900, L100.0500 #### [facility] [address] [place], [address] MCHC (RBC) [Mass/Vol] 33.3 g/dL Normal 32-36 [facility] Comment on above: Order Comment: 313.2 Performed By: #### L 501.6710, L101.9900, L100.0500 #### [facility] [address] [place], [address] MCV (RBC) [Entitic vol] 92.7 fL Normal 80-[address] [facility] Comment on above: Order Comment: 313.2 Performed By: #### L 501.6710, L101.9900, L100.0500 #### [facility] [address] [place], [address] Platelet mean volume (Bld) [Entitic vol] 11.1 fL Normal 6.2-12.0 [facility] Comment on above: Order Comment: 313.2 Performed By: #### L 501.6710, L101.9900, L100.0500 #### [facility] [address] [place], [address] Platelets (Bld) [#/Vol] 255 10*3/uL Normal 150-450 [facility] Comment on above: Order Comment: 313.2 Performed By: #### L 501.6710, L101.9900, L100.0500 #### [facility] [address] [place], [address] RBC (Bld) [#/Vol] 4.24 10*6/uL Low 4.6-6.2 [facility] Comment on above: Order Comment: 313.2 Performed By: #### L 501.6710, L101.9900, L100.0500 #### [facility] [address] [place], [address] RDW SD 47.3 fl High 35.1-43.9 [facility] Comment on above: Order Comment: 313.2 Performed By: #### L 501.6710, L101.9900, L100.0500 #### [facility] [address] [place], [address] WBC (Bld) [#/Vol] 7.1 10*3/uL Normal 4.4-11.0 [facility] Comment on above: Order Comment: 313.2 Performed By: #### L 501.6710, L101.9900, L100.0500 #### [facility] [address] [place], [address] Carbon dioxide, total [Moles /volume] in Central venous bloodOrdered By: Tab Dupont on 01-09-2025 CO2 [Moles/Vol] 19.2 mmol/L Low 21.0-32.0 [facility] Chloride assayOrdered By: Vinh Lehman on 01-09-2025 Chloride [Moles/Vol] 110 mmol/L High 98-108 [facility] Erythrocyte distribution wid th ratioOrdered By: Tab Dupont on 01-09-2025 Erythrocyte distribution width (RBC) [Ratio] 13.9 % 11.6-14.6 [facility] Erythrocyte distribution wid th standard deviationOrdered By: Tab Dupont on 01-09-2025 Erythrocyte distribution width (RBC) [Ratio] 47.3 fl High 35.1-43.9 [facility] Glomerular filtration rate ( GFR) estimation/1.73 sq m using serum, plasma, or whole bOrdered By: Tab Dupont on 01-09-2025 GFR/1.73 sq M.predicted among non-blacks MDRD (S/P/Bld) [Vol rate/Area] 121 mL/min/{1.73_m2} >60 [facility] Comment on above: mL/min/1.73m2 CKD-EP I Creatinine Equation (2020) Hematocrit Auto (Bld) [Volum e fraction]Ordered By: Tab Dupont on 01-09-2025 Hematocrit (Bld) [Volume fraction] 39.3 % Low 40-54 [facility] Hemoglobin measurementOrdere d By: Tab Dupont on 01-09-2025 Hemoglobin (Bld) [Mass/Vol] 13.1 g/dL 13.0-16.5 [facility] MCV (mean corpuscular volume ) determinationOrdered By: Tab Dupont on 01-09-2025 MCV (RBC) [Entitic vol] 92.7 fL 80-[address] [facility] Mean corpuscular hemoglobin (MCH) determinationOrdered By: Tab Dupont on 01-09-2025 MCH (RBC) [Entitic mass] 30.9 pg 27.0-32.0 [facility] Mean corpuscular hemoglobin concentration (MCHC) determinationOrdered By: Tab Dupont on 01-09-2025 MCHC (RBC) [Mass/Vol] 33.3 g/dL 32-36 [facility] Mean platelet volume determi nationOrdered By: Tab Dupont on 01-09-2025 Platelet mean volume (Bld) [Entitic vol] 11.1 fL 6.2-12.0 [facility] Platelet countOrdered By: Vinh Lehman on 01-09-2025 Platelets (Bld) [#/Vol] 255 10*3/uL 150-450 [facility] Potassium measurement (mass/ volume)Ordered By: Tab Dupont on 01-09-2025 Potassium (Unsp spec) [Mass/Vol] 4.0 mmol/L 3.3-5.1 [facility] Comment on above: Hemolysis present, R esults could be affected. RBC Auto (Bld) [#/Vol]Ordere d By: Tab Dupont on 01-09-2025 RBC (Bld) [#/Vol] 4.24 10*6/uL Low 4.6-6.2 [facility] Serum creatinine measurement (mass/volume)Ordered By: Tab Dupont on 01-09-2025 Creatinine [Mass/Vol] 0.42 mg/dL Low 0.70-1.20 [facility] Serum glucose measurement (m ass/volume)Ordered By: Tab Dupont on 01-09-2025 Glucose [Mass/Vol] 120 mg/dL High 70-99 [facility] Serum or plasma calcium randall urement (mass/volume)Ordered By: Tab Dupont on 01-09-2025 Calcium [Mass/Vol] 8.7 mg/dL 7.6-11.0 [facility] Serum or plasma urea nitroge n measurement (mass/volume)Ordered By: Tab Dupont on 01-09-2025 Urea nitrogen [Mass/Vol] 8 mg/dL 4-19 [facility] Sodium levelOrdered By: Omar Dupont on 01-09-2025 Sodium [Moles/Vol] 141 mmol/L 133-145 [facility] White blood cell (WBC) count Ordered By: Tab Dupont on 01-09-2025 WBC (Bld) [#/Vol] 7.1 10*3/uL 4.4-11.0 [facility] MRI SACRUM/COCCYX WO/W IVCON on 01-04-2025 MRI SACRUM/COCCYX WO/W IVCON * * *Final Report* * * DATE OF EXAM: Jan 04 2025 9:45AM [facility] 0236 - MRI SACRUM/COCCYX WO/W IVCON / PROCEDURE REASON: l89.159 * * * * Physician Interpretation * * * * EXAMINATION: MRI SACRUM/COCCYX WO/W IVCON TECHNOLOGIST PROVIDED HISTORY: wound on coccyx CLINICAL HISTORY: 64 years old Male with l89.159 COMPARISON: CT abdomen pelvis 05/02/2023, MRI pelvis 04/24/2023 TECHNIQUE: Multiplanar MRI of the sacrum and coccyx with multiple sequences with and without contrast. MR Contrast: Elucirem Contrast Dose: 8 cc Route of Administration: IV RESULT: Chronic sacrococcygeal wound/ulceration with underlying induration and enhancement along the margins of the wound. No underlying fluid collection. There is chronic anterior dislocation of the coccyx in relation to the sacrum at the sacrococcygeal joint similar in appearance to CT 05/02/2023. There is blunting of the adjacent S5 segment of the sacrum with increased STIR signal, intermediate T1 signal with postcontrast enhancement suggestive of osteomyelitis. Overall morphology and signal changes of the S5 segment are similar to MRI 04/24/2023. CT 05/02/2023 demonstrated sclerosis in this region. These findings are likely related to chronic osteomyelitis. There is mild edema in the adjacent presacral region without organized fluid collection. Sacroiliac joints and pubic symphysis are within normal limits. Partially assessed hip joint spaces demonstrate chronic synovial thickening and heterotopic ossification adjacent to the LEFT hip joint. No significant hip joint effusion. Generalized fatty atrophy of the pelvic and proximal thigh musculature with nonspecific generalized intramuscular edema. Atrophy has progressed and edema appears less prominent compared to MRI 04/24/2023 Partially visualized postoperative changes in the lumbar spine. Generalized fatty atrophy of the pelvic and proximal thigh musculature. Urinary bladder is decompressed with Santana catheter. Excessive colonic feces in the rectosigmoid. IMPRESSION: Chronic sacrococcygeal wound/ulceration with chronic anterior coccygeal dislocation and chronic osteomyelitis in the adjacent S5 segment of the sacrum. [place] Supervisor: PSCB Transcribe Date/Time: Jan 06 2025 1:16P Dictated by : COLE SHIPMAN DO This examination was interpreted and the report reviewed and electronically signed by: COLE SHIPMAN DO on Jan 06 2025 1:36PM EST [id number] N Normal [facility] Anion gap in Serum or Plasma Ordered By: Tab Dupont on 12-07-2024 Anion gap [Moles/Vol] 10 mmol/L 5-15 [facility] BUN/creatinine ratioOrdered By: Tab Dupont on 12-07-2024 Urea nitrogen/Creatinine [Mass ratio] 20.1 mg/mg High 10-20 [facility] Basic Metabolic Profile (BMP )on 12-07-2024 BUN/CRE 20.1 RATIO High 07-24 [facility] Comment on above: Order Comment: 313.2 Performed By: #### L 500.2500, L100.0500 #### [facility] [address] [place], [address] Calcium [Mass/Vol] 8.6 mg/dL Normal 7.6-11.0 [facility] Comment on above: Order Comment: 313.2 Performed By: #### L 500.2500, L100.0500 #### [facility] [address] [place], [address] Chloride [Moles/Vol] 104 mmol/L Normal 98-108 [facility] Comment on above: Order Comment: 313.2 Performed By: #### L 500.2500, L100.0500 #### [facility] [address] [place], [address] CO2 [Moles/Vol] 21.3 mmol/L Normal 21.0-32.0 [facility] Comment on above: Order Comment: 313.2 Performed By: #### L 500.2500, L100.0500 #### [facility] [address] [place], [address] Creatinine [Mass/Vol] 0.47 mg/dL Low 0.70-1.20 [facility] Comment on above: Order Comment: 313.2 Performed By: #### L 500.2500, L100.0500 #### [facility] [address] [place], [address] GAP 10 Normal 5-15 [facility] Comment on above: Order Comment: 313.2 Performed By: #### L 500.2500, L100.0500 #### [facility] [address] [place], [address] GFR/1.73 sq M.predicted among non-blacks MDRD (S/P/Bld) [Vol rate/Area] 117 mL/min/{1.73_m2} Normal >60 [facility] Comment on above: Order Comment: 313.2 Result Comment: mL/m in/1.73m2 CKD-EPI Creatinine Equation (2020) Performed By: #### L 500.2500, L100.0500 #### [facility] [address] [place], [address] Glucose [Mass/Vol] 194 mg/dL High 70-99 [facility] Comment on above: Order Comment: 313.2 Performed By: #### L 500.2500, L100.0500 #### [facility] [address] [place], [address] Potassium [Moles/Vol] 4.3 mmol/L Normal 3.3-5.1 [facility] Comment on above: Order Comment: 313.2 Performed By: #### L 500.2500, L100.0500 #### [facility] [address] [place], [address] Sodium [Moles/Vol] 136 mmol/L Normal 133-145 [facility] Comment on above: Order Comment: 313.2 Performed By: #### L 500.2500, L100.0500 #### [facility] [address] [place], [address] Urea nitrogen [Mass/Vol] 9 mg/dL Normal 4-19 [facility] Comment on above: Order Comment: 313.2 Performed By: #### L 500.2500, L100.0500 #### [facility] [address] [place], [address] CBC-Complete Blood Cnt No Di ffon 12-07-2024 Erythrocyte distribution width (RBC) [Ratio] 14.0 % Normal 11.6-14.6 [facility] Comment on above: Order Comment: 313.2 Performed By: #### L 500.2500, L100.0500 #### [facility] [address] [place], [address] Hematocrit (Bld) [Volume fraction] 38.2 % Low 40-54 [facility] Comment on above: Order Comment: 313.2 Performed By: #### L 500.2500, L100.0500 #### [facility] [address] [place], [address] Hemoglobin (Bld) [Mass/Vol] 12.8 g/dL Low 13.0-16.5 [facility] Comment on above: Order Comment: 313.2 Performed By: #### L 500.2500, L100.0500 #### [facility] [address] [place], [address] MCH (RBC) [Entitic mass] 30.9 pg Normal 27.0-32.0 [facility] Comment on above: Order Comment: 313.2 Performed By: #### L 500.2500, L100.0500 #### [facility] [address] [place], [address] MCHC (RBC) [Mass/Vol] 33.5 g/dL Normal 32-36 [facility] Comment on above: Order Comment: 313.2 Performed By: #### L 500.2500, L100.0500 #### [facility] [address] [place], [address] MCV (RBC) [Entitic vol] 92.3 fL Normal 80-[address] [facility] Comment on above: Order Comment: 313.2 Performed By: #### L 500.2500, L100.0500 #### [facility] [address] [place], [address] Platelet mean volume (Bld) [Entitic vol] 10.5 fL Normal 6.2-12.0 [facility] Comment on above: Order Comment: 313.2 Performed By: #### L 500.2500, L100.0500 #### [facility] [address] [place], [address] Platelets (Bld) [#/Vol] 241 10*3/uL Normal 150-450 [facility] Comment on above: Order Comment: 313.2 Performed By: #### L 500.2500, L100.0500 #### [facility] [address] [place], [address] RBC (Bld) [#/Vol] 4.14 10*6/uL Low 4.6-6.2 [facility] Comment on above: Order Comment: 313.2 Performed By: #### L 500.2500, L100.0500 #### [facility] [address] [place], [address] RDW SD 47.9 fl High 35.1-43.9 [facility] Comment on above: Order Comment: 313.2 Performed By: #### L 500.2500, L100.0500 #### [facility] [address] [place], [address] WBC (Bld) [#/Vol] 6.6 10*3/uL Normal 4.4-11.0 [facility] Comment on above: Order Comment: 313.2 Performed By: #### L 500.2500, L100.0500 #### [facility] [address] [place], [address] Carbon dioxide, total [Moles /volume] in Central venous bloodOrdered By: Tab Dupont on 12-07-2024 CO2 [Moles/Vol] 21.3 mmol/L 21.0-32.0 [facility] Chloride assayOrdered By: Vinh Lehman on 12-07-2024 Chloride [Moles/Vol] 104 mmol/L 98-108 [facility] Erythrocyte distribution wid th ratioOrdered By: Tab Dupont on 12-07-2024 Erythrocyte distribution width (RBC) [Ratio] 14.0 % 11.6-14.6 [facility] Erythrocyte distribution wid th standard deviationOrdered By: Tab Dupont on 12-07-2024 Erythrocyte distribution width (RBC) [Entitic vol] 47.9 fL High 35.1-43.9 [facility] Erythrocyte distribution width (RBC) [Ratio] 47.9 fl High 35.1-43.9 [facility] GFR/1.73 sq M.predicted trish g non-blacks MDRD (S/P/Bld) [Vol rate/Area]Ordered By: Tab Dupont on 12-07-2024 Estimated GFR (MDRD) Non-Af Amer 117 >60 [facility] Comment on above: mL/min/1.73m2 CKD-EP I Creatinine Equation (2020) Glomerular filtration rate ( GFR) estimation/1.73 sq m using serum, plasma, or whole bOrdered By: Tab Dupont on 12-07-2024 GFR/1.73 sq M.predicted among non-blacks MDRD (S/P/Bld) [Vol rate/Area] 117 mL/min/{1.73_m2} >60 [facility] Comment on above: mL/min/1.73m2 CKD-EP I Creatinine Equation (2020) Hematocrit Auto (Bld) [Volum e fraction]Ordered By: Tab Dupont on 12-07-2024 Hematocrit (Bld) [Volume fraction] 38.2 % Low 40-54 [facility] Hemoglobin measurementOrdere d By: Tab Dupont on 12-07-2024 Hemoglobin (Bld) [Mass/Vol] 12.8 g/dL Low 13.0-16.5 [facility] MCV (mean corpuscular volume ) determinationOrdered By: Tab Dupont on 12-07-2024 MCV (RBC) [Entitic vol] 92.3 fL 80-[address] [facility] Mean corpuscular hemoglobin (MCH) determinationOrdered By: Tab Dupont on 12-07-2024 MCH (RBC) [Entitic mass] 30.9 pg 27.0-32.0 [facility] Mean corpuscular hemoglobin concentration (MCHC) determinationOrdered By: Tab Dupont on 12-07-2024 MCHC (RBC) [Mass/Vol] 33.5 g/dL 32-36 [facility] Mean platelet volume determi nationOrdered By: Tab Dupont on 12-07-2024 Platelet mean volume (Bld) [Entitic vol] 10.5 fL 6.2-12.0 [facility] Platelet countOrdered By: Vinh Lehman on 12-07-2024 Platelets (Bld) [#/Vol] 241 10*3/uL 150-450 [facility] Potassium (Unsp spec) [Mass/ Vol]Ordered By: Tab Dupont on 12-07-2024 Potassium [Moles/Vol] 4.3 mmol/L 3.3-5.1 [facility] Potassium measurement (mass/ volume)Ordered By: Tab Dupont on 12-07-2024 Potassium (Unsp spec) [Mass/Vol] 4.3 mmol/L 3.3-5.1 [facility] RBC Auto (Bld) [#/Vol]Ordere d By: Tab Dupont on 12-07-2024 RBC (Bld) [#/Vol] 4.14 10*6/uL Low 4.6-6.2 [facility] Serum creatinine measurement (mass/volume)Ordered By: Tab Dupont on 12-07-2024 Creatinine [Mass/Vol] 0.47 mg/dL Low 0.70-1.20 [facility] Serum glucose measurement (m ass/volume)Ordered By: Tab Dupont on 12-07-2024 Glucose [Mass/Vol] 194 mg/dL High 70-99 [facility] Serum or plasma calcium randall urement (mass/volume)Ordered By: Tab Dupont on 12-07-2024 Calcium [Mass/Vol] 8.6 mg/dL 7.6-11.0 [facility] Serum or plasma urea nitroge n measurement (mass/volume)Ordered By: Tab Dupont on 12-07-2024 Urea nitrogen [Mass/Vol] 9 mg/dL 4-19 [facility] Sodium levelOrdered By: Omar Dupont on 12-07-2024 Sodium [Moles/Vol] 136 mmol/L 133-145 [facility] White blood cell (WBC) count Ordered By: Tab Dupont on 12-07-2024 WBC (Bld) [#/Vol] 6.6 10*3/uL 4.4-11.0 [facility] Urine Cultureon 12-02-2024 [facility] STRAIGHT CATH Copy of report sent to Infection Control Printer [id number] 12/02/24 1011 JIM. Urine Culture RESULTS CALLED TO LUKASZ Batista 12/02/24 1021 Erika Rosario. REPORT READ BACK BY . Citrobacter freundii [place] Count >100,000 Providencia stuartii Providencia stuartii MARKER Multi Drug Resistant Organism Enterococcus faecalis MARKER Multi Drug Resistant OrganismA Citrobacter freundii: REACTION Enterococcus faecalis cefTRIAXone Islt HARINDER <=0.25 Ciprofloxacin Islt HARINDER 0.5 I Gentamicin Islt HARINDER <=1 levoFLOXacin Islt HARINDER 1 I Meropenem Islt HARINDER <=0.25 S Nitrofurantoin Islt HARINDER <=16 S Pip+Tazo Islt HARINDER <=4 S TMP SMX Islt HARINDER <=20 S Providencia stuartii: REACTION Ampicillin Islt HARINDER >=32 R Ampicillin+Sulbac Islt HARINDER 16 I Cefepime Islt HARINDER <=0.12 S cefTRIAXone Islt HARINDER <=0.25 Ciprofloxacin Islt HARINDER 1 R Gentamicin Islt HARINDER R levoFLOXacin Islt HARINDER 4 R Meropenem Islt HARINDER <=0.25 S Nitrofurantoin Islt HARINDER 128 R Pip+Tazo Islt HARINDER <=4 S TMP SMX Islt HARINDER >=320 R Enterococcus faecalis: REACTION Ampicillin Islt HARINDER <=2 S Ciprofloxacin Islt HARINDER >=8 R Gentamicin Synergy Susc Islt SYN-R R levoFLOXacin Islt HARINDER >=8 Linezolid Islt HARINDER 2 S Nitrofurantoin Islt HARINDER <=16 S Streptomycin High Pot Susc Islt SYN-S S Tetracycline Islt HARINDER >=16 R Vancomycin Islt HARINDER 1 S Normal [facility] Comment on above: Performed By: #### L 501.6710, L101.9900, L100.0500 #### [facility] [address] [place], [address] BUN/creatinine ratioOrdered By: Tba Dupnot on 11-30-2024 Urea nitrogen/Creatinine [Mass ratio] 23.9 mg/mg High 10-20 [facility] Basic Metabolic Profile (BMP )on 11-30-2024 Anion gap [Moles/Vol] 9 mmol/L Normal 5-15 [facility] Comment on above: Order Comment: 313.2 Performed By: #### L 500.2500, L100.0500 #### [facility] [address] [place], [address] BUN/CRE 23.9 RATIO High 10-20 [facility] Comment on above: Order Comment: 313.2 Performed By: #### L 500.2500, L100.0500 #### [facility] [address] [place], [address] Calcium [Mass/Vol] 8.4 mg/dL Normal 7.6-11.0 [facility] Comment on above: Order Comment: 313.2 Performed By: #### L 500.2500, L100.0500 #### [facility] [address] [place], [address] Chloride [Moles/Vol] 105 mmol/L Normal 96-108 [facility] Comment on above: Order Comment: 313.2 Performed By: #### L 500.2500, L100.0500 #### [facility] [address] [place], [address] CO2 [Moles/Vol] 22.7 mmol/L Normal 22.0-29.0 [facility] Comment on above: Order Comment: 313.2 Performed By: #### L 500.2500, L100.0500 #### [facility] [address] [place], [address] Creatinine [Mass/Vol] 0.4 mg/dL Low 0.8-1.3 [facility] Comment on above: Order Comment: 313.2 Performed By: #### L 500.2500, L100.0500 #### [facility] [address] [place], [address] GFR/1.73 sq M.predicted among non-blacks MDRD (S/P/Bld) [Vol rate/Area] 120 mL/min/{1.73_m2} Normal >60 [facility] Comment on above: Order Comment: 313.2 Result Comment: mL/m in/1.73m2 CKD-EPI Creatinine Equation (2020) Performed By: #### L 500.2500, L100.0500 #### [facility] [address] [place], [address] Glucose [Mass/Vol] 170 mg/dL High 70-99 [facility] Comment on above: Order Comment: 313.2 Performed By: #### L 500.2500, L100.0500 #### [facility] [address] [place], [address] Potassium [Moles/Vol] 3.8 mmol/L Normal 3.3-5.1 [facility] Comment on above: Order Comment: 313.2 Performed By: #### L 500.2500, L100.0500 #### [facility] [address] [place], [address] Sodium [Moles/Vol] 137 mmol/L Normal 133-145 [facility] Comment on above: Order Comment: 313.2 Performed By: #### L 500.2500, L100.0500 #### [facility] [address] [place], [address] Urea nitrogen [Mass/Vol] 10 mg/dL Normal 4-19 [facility] Comment on above: Order Comment: 313.2 Performed By: #### L 500.2500, L100.0500 #### [facility] [address] [place], [address] CBC-Complete Blood Cnt No Di ffon 11-30-2024 Erythrocyte distribution width (RBC) [Ratio] 13.7 % Normal 11.6-14.6 [facility] Comment on above: Order Comment: 313.2 Performed By: #### L 500.2500, L100.0500 #### [facility] [address] [place], [address] Hematocrit (Bld) [Volume fraction] 37.1 % Low 40-54 [facility] Comment on above: Order Comment: 313.2 Performed By: #### L 500.2500, L100.0500 #### [facility] [address] [place], [address] Hemoglobin (Bld) [Mass/Vol] 12.0 g/dL Low 13.0-16.5 [facility] Comment on above: Order Comment: 313.2 Performed By: #### L 500.2500, L100.0500 #### [facility] [address] [place], [address] MCH (RBC) [Entitic mass] 29.9 pg Normal 27.0-32.0 [facility] Comment on above: Order Comment: 313.2 Performed By: #### L 500.2500, L100.0500 #### [facility] [address] [place], [address] MCHC (RBC) [Mass/Vol] 32.3 g/dL Normal 32-36 [facility] Comment on above: Order Comment: 313.2 Performed By: #### L 500.2500, L100.0500 #### [facility] [address] [place], [address] MCV (RBC) [Entitic vol] 92.5 fL Normal 80-[address] [facility] Comment on above: Order Comment: 313.2 Performed By: #### L 500.2500, L100.0500 #### [facility] [address] [place], [address] Platelet mean volume (Bld) [Entitic vol] 11.1 fL Normal 6.2-12.0 [facility] Comment on above: Order Comment: 313.2 Performed By: #### L 500.2500, L100.0500 #### [facility] [address] [place], [address] Platelets (Bld) [#/Vol] 230 10*3/uL Normal 150-450 [facility] Comment on above: Order Comment: 313.2 Performed By: #### L 500.2500, L100.0500 #### [facility] [address] [place], [address] RBC (Bld) [#/Vol] 4.01 10*6/uL Low 4.6-6.2 [facility] Comment on above: Order Comment: 313.2 Performed By: #### L 500.2500, L100.0500 #### [facility] [address] [place], [address] RDW SD 46.8 fl High 35.1-43.9 [facility] Comment on above: Order Comment: 313.2 Performed By: #### L 500.2500, L100.0500 #### [facility] [address] [place], [address] WBC (Bld) [#/Vol] 6.3 10*3/uL Normal 4.4-11.0 [facility] Comment on above: Order Comment: 313.2 Performed By: #### L 500.2500, L100.0500 #### [facility] [address] [place], [address] Carbon dioxide measurementOr dered By: Tab Dupont on 11-30-2024 CO2 [Moles/Vol] 22.7 mmol/L 22.0-29.0 [facility] Chloride measurementOrdered By: Tab Dupont on 11-30-2024 Chloride [Moles/Vol] 105 mmol/L 96-108 [facility] Creatinine [Moles/Vol]Ordere d By: Tab Dupont on 11-30-2024 Creatinine [Mass/Vol] 0.4 mg/dL Low 0.8-1.3 [facility] Erythrocyte distribution wid th ratioOrdered By: Tab Dupont on 11-30-2024 Erythrocyte distribution width (RBC) [Ratio] 13.7 % 11.6-14.6 [facility] Erythrocyte distribution wid th standard deviationOrdered By: Tab Dupont on 11-30-2024 Erythrocyte distribution width (RBC) [Entitic vol] 46.8 fL High 35.1-43.9 [facility] Erythrocyte distribution width (RBC) [Ratio] 46.8 fl High 35.1-43.9 [facility] GFR/1.73 sq M.predicted trish g non-blacks MDRD (S/P/Bld) [Vol rate/Area]Ordered By: Tab Dupont on 11-30-2024 Estimated GFR (MDRD) Non-Af Amer 120 >60 [facility] Comment on above: mL/min/1.73m2 CKD-EP I Creatinine Equation (2020) Glomerular filtration rate ( GFR) estimation/1.73 sq m using serum, plasma, or whole bOrdered By: Tab Dupont on 11-30-2024 GFR/1.73 sq M.predicted among non-blacks MDRD (S/P/Bld) [Vol rate/Area] 120 mL/min/{1.73_m2} >60 [facility] Comment on above: mL/min/1.73m2 CKD-EP I Creatinine Equation (2020) Hematocrit Auto (Bld) [Volum e fraction]Ordered By: Tab Dupont on 11-30-2024 Hematocrit (Bld) [Volume fraction] 37.1 % Low 40-54 [facility] Hemoglobin measurementOrdere d By: Tab Dupont on 11-30-2024 Hemoglobin (Bld) [Mass/Vol] 12.0 g/dL Low 13.0-16.5 [facility] MCV (mean corpuscular volume ) determinationOrdered By: Tab Dupont on 11-30-2024 MCV (RBC) [Entitic vol] 92.5 fL 80-[address] [facility] Mean corpuscular hemoglobin (MCH) determinationOrdered By: Tab Dupont on 11-30-2024 MCH (RBC) [Entitic mass] 29.9 pg 27.0-32.0 [facility] Mean corpuscular hemoglobin concentration (MCHC) determinationOrdered By: Tab Dupont on 11-30-2024 MCHC (RBC) [Mass/Vol] 32.3 g/dL 32-36 [facility] Mean platelet volume determi nationOrdered By: Tab Dupont on 11-30-2024 Platelet mean volume (Bld) [Entitic vol] 11.1 fL 6.2-12.0 [facility] Platelet countOrdered By: Vinh Lehman on 11-30-2024 Platelets (Bld) [#/Vol] 230 10*3/uL 150-450 [facility] RBC Auto (Bld) [#/Vol]Ordere d By: Tab Dupont on 11-30-2024 RBC (Bld) [#/Vol] 4.01 10*6/uL Low 4.6-6.2 [facility] Serum glucose measurement (m ass/volume)Ordered By: Tab Dupont on 11-30-2024 Glucose [Mass/Vol] 170 mg/dL High 70-99 [facility] Serum or plasma anion gap de termination (moles/volume)Ordered By: Tab Dupont on 11-30-2024 Anion gap [Moles/Vol] 9 mmol/L 5-15 [facility] Serum or plasma calcium randall urement (mass/volume)Ordered By: Tab Dupont on 11-30-2024 Calcium [Mass/Vol] 8.4 mg/dL 7.6-11.0 [facility] Serum or plasma creatinine m easurement (moles/volume)Ordered By: Tab Dupont on 11-30-2024 Creatinine [Moles/Vol] 0.4 mg/dL Low 0.8-1.3 [facility] Serum or plasma potassium me asurementOrdered By: Tab Dupont on 11-30-2024 Potassium [Moles/Vol] 3.8 mmol/L 3.3-5.1 [facility] Serum or plasma sodium measu rement (moles/volume)Ordered By: Tab Dupont on 11-30-2024 Sodium [Moles/Vol] 137 mmol/L 133-145 [facility] Serum or plasma urea nitroge n measurement (mass/volume)Ordered By: Tab Dupont on 11-30-2024 Urea nitrogen [Mass/Vol] 10 mg/dL 4-19 [facility] White blood cell (WBC) count Ordered By: Tab Dupont on 11-30-2024 WBC (Bld) [#/Vol] 6.3 10*3/uL 4.4-11.0 [facility] Bilirubin Test strip Ql (U)O rdered By: Daisy Costello on 11-29-2024 Bilirubin Ql (U) Negative Negative [facility] Epithelial cells.squamous LM Ql (Urine sed)Ordered By: Daisy Costello on 11-29-2024 Epithelial cells.squamous LM.HPF (Urine sed) [#/Area] 0 /[HPF] 0-5 [facility] Glucose Ql (U)Ordered By: Jose Costello on 11-29-2024 Urine Glucose (UA) Normal mg/dl Normal [facility] Ketones Test strip Ql (U)Ord ered By: Daisy Costello on 11-29-2024 Ketones Ql (U) Negative Negative [facility] Microscopic analysis of urin e for red blood cells (RBC)Ordered By: Daisy Costello on 11-29-2024 Microscopic analysis of urine for red blood cells (RBC) 10-25 SEEN /hpf 0-5 [facility] Urine RBC 10-25 SEEN /hpf 0-5 [facility] Mucus LM Ql (Urine sed)Order ed By: Daisy Costello on 11-29-2024 Mucus Ql (Urine sed) 0 SEEN /hpf [facility] Nitrite Test strip Ql (U)Ord ered By: Daisy Costello on 11-29-2024 Nitrite Ql (U) Positive High Negative [facility] Protein Test strip Ql (U)Ord ered By: Davesamsondavida Costello on 11-29-2024 Protein Ql (U) 100 mg/dl High Negative [facility] Squamous epithelial cells de tection in urine sediment by light microscopyOrdered By: Daisy Costello on 11-29-2024 Epithelial cells.squamous LM Ql (Urine sed) 0 SEEN /hpf 0-5 [facility] Urinalysis, Completeon 11-29 BACTERIA 1+ /hpf Normal None Seen [facility] Comment on above: Order Comment: 313.2 Performed By: #### L 501.6710, L101.9900, L100.0500 #### [facility] [address] [place], [address] RBC 10-25 SEEN Normal 0-[address] [place] [address] Comment on above: Order Comment: 313.2 Performed By: #### L 501.6710, L101.9900, L100.0500 #### [facility] [address] [place], [address] WBC >100 SEEN Normal 0-[address] [place] [address] Comment on above: Order Comment: 313.2 Performed By: #### L 501.6710, L101.9900, L100.0500 #### [facility] [address] [place], [address] EPI,SQUAMOUS 0 SEEN Normal 0-[address] [place] [address] Comment on above: Order Comment: 313.2 Performed By: #### L 501.6710, L101.9900, L100.0500 #### [facility] [address] [place], [address] Mucus Ql (Urine sed) 0 SEEN Normal [facility] Comment on above: Order Comment: 313.2 Performed By: #### L 501.6710, L101.9900, L100.0500 #### [facility] [address] [place], [address] Urine blood detectionOrdered By: Daisy Costello on 11-29-2024 Urine Occult Blood 250 /ul High Negative [facility] Urine clarityOrdered By: Ward Costello on 11-29-2024 Clarity (U) Cloudy Clear [facility] Urine color determinationOrd ered By: Daisy Costello on 11-29-2024 Color (U) Yellow Yellow [facility] Urine cultureOrdered By: Ward Costello on 11-29-2024 Bacteria identified Cx Nom (U) Citrobacter freundii Abnormal [facility] Bacteria identified Cx Nom (U) Providencia stuartii Abnormal [facility] Bacteria identified Cx Nom (U) Enterococcus faecalis Abnormal [facility] Bacteria identified Cx Nom (U) Citrobacter freundii Abnormal [facility] Bacteria identified Cx Nom (U) Providencia stuartii Abnormal [facility] Bacteria identified Cx Nom (U) Enterococcus faecalis Abnormal [facility] Urine glucose detectionOrder ed By: Daisy Costello on 11-29-2024 Glucose Ql (U) Normal mg/dl Normal [facility] Urine leukocyte esterase det ection by dipstickOrdered By: Daisy Costello on 11-29-2024 Leukocyte esterase Test strip Ql (U) 500 /ul High Negative [facility] Urine pHOrdered By: Colin on 11-29-2024 pH (U) 6.5 [pH] 5.0 - 8.0 [facility] Urine sediment bacteria coun t by microscopy (number/high power field)Ordered By: Daisy Costello on 11-29-2024 Bacteria LM.HPF (Urine sed) [#/Area] 1 /[HPF] None Seen [facility] Urine specific gravity measu rementOrdered By: Daisy Costello on 11-29-2024 Specific gravity (U) [Rel density] 1.010 1.002-1.030 [facility] Urine urobilinogen measureme ntOrdered By: Daisy Costello on 11-29-2024 Urobilinogen Ql (U) Normal mg/dl Normal [facility] Urobilinogen Ql (U)Ordered B y: Daisy Costello on 11-29-2024 Urine Urobilinogen Normal mg/dl Normal [facility] White blood cell countOrdere d By: Daisy Costello on 11-29-2024 Urine WBC >100 SEEN /hpf 0-5 [facility] White blood cell count >100 SEEN /hpf 0-5 [facility] Progress Noteson 11-08-2024 Phlebotomist Lab Assistant Authentication Interface Message Text Documentation: Mode: Video Consent: This visit was initiated by the patient. Audio and visual communication was utilized in real-time. I confirmed understanding of risks and benefits of telehealth visits and obtained consent to proceed with the telemedicine visit. Location of Patient: Nursing Facility Time-Based Billing Justifications: Charting in Epic Patient visit (including performing a medically appropriate exam) Obtaining history (or reviewing separately obtained history) SPINAL CORD INJURY CLINIC Visit date: 11/08/2024 PCP: No primary care provider on file. CC: Problem focused follow up of spinal cord injury and resultant complications HPI: Name: Anmol Reynolds Age: [age] year old Sex: male 06/13/2023 SCI Data Injury Date 10/05/2021 Injury Etiology Non-traumatic NLI T11 AIS A Patient was unaccompanied Previously seen for CMG, recommended to continue flomax and indwelling catheter - ordered CT Stone and pending Urology appt Interim HPI since last visit: - since changing SNF, Oxycodone changed fro 40mg TID to 15mg QID and added lyrica. -- reports electric pain, burning in BLE. Shocks that come intermittently, day or night, sometimes increased with activity. Interrupts sleep and function. -- taking lyrica 600/day, cymbalta 60mg/day, nortriptyline 50mg/day - catheter trauma and still with hematuria -- reports Urology appt was scheduled and cancelled but never rescheduled - pending MRI for wound per pcp. Small but non-healing. Kristine Howell overseeing. Current Outpatient Medications Medication Sig Dispense Refill Potassium Chloride 10 % SOLN nortriptyline (PAMELOR) 50 MG capsule 1 cap(s) orally once daily at bedtime tamsulosin (FLOMAX) 0.4 MG capsule Hyoscyamine Sulfate SL 0.[address] 0.125 mg under the tongue every 8 hours as needed. duloxetine (CYMBALTA) 60 MG capsule ferrous sulfate 325 (65 Fe) MG tablet Take 325 mg by mouth daily (with breakfast). HYDROmorphone (DILAUDID) 4 MG tablet imipenem-cilastatin (PRIMAXIN) 250 MG injection mirtazapine (REMERON) 7.5 MG tablet Multiple Vitamin (multivitamins) capsule Take 1 Capsule by mouth daily. zinc sulfate (ZINCATE) 220 (50 Zn) MG capsule Take 220 mg by mouth daily. oxycodone (ROXICODONE) 15 MG immediate release tablet pregabalin (LYRICA) 200 MG capsule Take 200 mg by mouth 3 times daily. insulin lispro (HumaLOG) 100 UNIT/ML injection Inject 0-28 Units under the skin. insulin glargine (LANTUS SOLOSTAR/BASAGLAR KWIKPEN) 100 UNIT/ML pen Inject 45 Units under the skin. cyclobenzaprine (FLEXERIL) 10 MG tablet No current facility-administered medications for this visit. No Known Allergies SCI REVIEW OF SYSTEMS No data to display OBJECTIVE Labs (deferred to PCP) CBC No lab values to display. BMP (last 3 years, up to 8 values) No lab values to display. LIPIDS No lab values to display. Lab Results Component Value Date HBA1C 6.5 (H) 01/23/2022 No results found for: VITD25 There were no vitals filed for this visit. General: Alert, No acute distress HEENT: hearing normal Neck: Symmetrical CV: well-perfused extremities Resp: normal respiratory effort, symmetrical chest rise Abd: non-distended last BMI is undetermined because no height found and no weight found Psych: Conversational, good eye contact Skin: Intact where observed MSK: No focal swelling 06/13/2024 SCI Motor Score Right C5 5 Right C6 5 Right C7 5 Right C8 5 Right T1 5 Right L2 0 Right L3 0 Right L4 0 Right L5 0 Right S1 0 Left C5 5 Left C6 5 Left C7 5 Left C8 5 Left T1 5 Left L2 0 Left L3 0 Left L4 0 Left L5 0 Left S1 0 UE Motor Score Total 50 LE Motor Score Total 0 Motor Score Total 50 NLI T11 AIS A ASSESSMENT Anmol Reynolds is a 64 year old male here for 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 1. Paraplegia (HCC) 2. Neurogenic bladder 3. Gross hematuria 4. Neuropathic pain 5. Pressure injury of skin, unspecified injury stage, unspecified location No orders or meds were signed during this encounter There are no Patient Instructions on file for this visit. Very important to follow up with Urologist due to continued ongoing gross hematuria - Previously ordered CT Renal but can defer to Urology judgement Could increase nortriptyline for superior neuropathic pain control. Would not increase others including oxycodone Agree with MRI in setting of 3 year old unhealed wound. Return to Clinic: Follow up in about 3 months (around 02/05/2025) for in-person visit with [facility]. Faisal Simeon DO 11/08/[address] [facility] 36 10-27-2024 36 Returned call unable to leave message doug was out for the day [place] [id number] 36 Name of caller: Dax banks Contact phone number: [phone] Relationship to Patient: [place] Provider: Dr. Gillette Practice: [facility] Chief Complaint/Reason for Call: Doug states she missed a call from the office to schedule the patient and would like a return call. Please review. Best time of day caller can be reached: any Patient advised that office/PCP has 24-48 business hours to return their call: Yes [facility] 36 Called and left message to call to reschedule appointment [address] 10-25-2024 36 Name of Caller: Dax banks Contact Reason for Appointment: Please call to r/s cx appt for 10.26.24 due to weather conditions. Follow up for pain management//no showed on 08.04.24// Doug from [facility] appt//medicare medicaid Office Name: [facility] Medication Refills need, if any: n/a Medication Name: n/a Normal [facility] Basic Metabolic Profile (BMP )on 10-10-2024 BUN/CRE 19.6 RATIO Normal 07-24 [facility] Comment on above: Order Comment: 313.2 Performed By: #### L 501.1989, L101.4535, L100.2800 #### [facility] [address] [place], [address] CA,Total 8.7 mg/dL Normal 8.5-10.1 [facility] Comment on above: Order Comment: 313.2 Performed By: #### L 501.6710, L101.9900, L100.0500 #### [facility] [address] [place], [address] Chloride [Moles/Vol] 109 mmol/L High 98-107 [facility] Comment on above: Order Comment: 313.2 Performed By: #### L 501.6710, L101.9900, L100.0500 #### [facility] [address] [place], [address] CO2 [Moles/Vol] 22.0 mmol/L Normal 21.0-32.0 [facility] Comment on above: Order Comment: 313.2 Performed By: #### L 501.6710, L101.9900, L100.0500 #### [facility] [address] [place], [address] Creatinine [Mass/Vol] 0.56 mg/dL Low 0.70-1.30 [facility] Comment on above: Order Comment: 313.2 Result Comment: The validity of the calculated GFR GFRAA in patients over 70 years has not been determined. Clinical correlation is essential. Performed By: #### L 501.6710, L101.9900, L100.0500 #### [facility] [address] [place], [address] EST GFR - AA 189 mL/min Normal >60 [facility] Comment on above: Order Comment: 313.2 Result Comment: Afri can Iranian GFR Calc Performed By: #### L 501.6710, L101.9900, L100.0500 #### [facility] [address] [place], [address] GAP 7 Normal 5-15 [facility] Comment on above: Order Comment: 313.2 Performed By: #### L 501.6710, L101.9900, L100.0500 #### [facility] [address] [place], [address] GFR/1.73 sq M.predicted among non-blacks MDRD (S/P/Bld) [Vol rate/Area] 156 mL/min/{1.73_m2} Normal >60 [facility] Comment on above: Order Comment: 313.2 Result Comment: Non- GFR Calc Performed By: #### L 501.6710, L101.9900, L100.0500 #### [facility] [address] [place], [address] Glucose [Mass/Vol] 108 mg/dL High 74-106 [facility] Comment on above: Order Comment: 313.2 Result Comment: Fast ing Glucose result from 100 to 125 mg/dL suggests IMPAIRED HOMEOSTASIS per A.D.A. criteria. Performed By: #### L 501.6710, L101.9900, L100.0500 #### [facility] [address] [place], [address] Potassium [Moles/Vol] 4.0 mmol/L Normal 3.5-5.1 [facility] Comment on above: Order Comment: 313.2 Performed By: #### L 501.6710, L101.9900, L100.0500 #### [facility] [address] [place], [address] Sodium [Moles/Vol] 139 mmol/L Normal 136-145 [facility] Comment on above: Order Comment: 313.2 Performed By: #### L 501.6710, L101.9900, L100.0500 #### [facility] [address] [place], [address] Urea nitrogen [Mass/Vol] 11 mg/dL Normal 7-18 [facility] Comment on above: Order Comment: 313.2 Performed By: #### L 501.6710, L101.9900, L100.0500 #### [facility] [address] [place], [address] Blood urea nitrogen (BUN)/cr eatinine ratioOrdered By: Tab Dupont on 10-10-2024 Urea nitrogen/Creatinine [Mass ratio] 19.6 mg/mg 10-20 [facility] CBC-Complete Blood Cnt No Di ffon 10-10-2024 Erythrocyte distribution width (RBC) [Ratio] 13.9 % Normal 11.6-14.6 [facility] Comment on above: Order Comment: 313.2 Performed By: #### L 501.6710, L101.9900, L100.0500 #### [facility] [address] [place], [address] Hematocrit (Bld) [Volume fraction] 42.2 % Normal 40-54 [facility] Comment on above: Order Comment: 313.2 Performed By: #### L 501.6710, L101.9900, L100.0500 #### [facility] [address] [place], [address] Hemoglobin (Bld) [Mass/Vol] 13.4 g/dL Normal 13.0-16.5 [facility] Comment on above: Order Comment: 313.2 Performed By: #### L 501.6710, L101.9900, L100.0500 #### [facility] [address] [place], [address] MCH (RBC) [Entitic mass] 29.8 pg Normal 27.0-32.0 [facility] Comment on above: Order Comment: 313.2 Performed By: #### L 501.6710, L101.9900, L100.0500 #### [facility] [address] [place], [address] MCHC (RBC) [Mass/Vol] 31.8 g/dL Low 32-36 [facility] Comment on above: Order Comment: 313.2 Performed By: #### L 501.6710, L101.9900, L100.0500 #### [facility] [address] [place], [address] MCV (RBC) [Entitic vol] 94.0 fL Normal 80-[address] [facility] Comment on above: Order Comment: 313.2 Performed By: #### L 501.6710, L101.9900, L100.0500 #### [facility] [address] [place], [address] Platelet mean volume (Bld) [Entitic vol] 10.5 fL Normal 6.2-12.0 [facility] Comment on above: Order Comment: 313.2 Performed By: #### L 501.6710, L101.9900, L100.0500 #### [facility] [address] [place], [address] Platelets (Bld) [#/Vol] 283 10*3/uL Normal 150-450 [facility] Comment on above: Order Comment: 313.2 Performed By: #### L 501.6710, L101.9900, L100.0500 #### [facility] [address] [place], [address] RBC (Bld) [#/Vol] 4.49 10*6/uL Low 4.6-6.2 [facility] Comment on above: Order Comment: 313.2 Performed By: #### L 501.6710, L101.9900, L100.0500 #### [facility] [address] [place], [address] RDW SD 47.8 fl High 35.1-43.9 [facility] Comment on above: Order Comment: 313.2 Performed By: #### L 501.6710, L101.9900, L100.0500 #### [facility] [address] [place], [address] WBC (Bld) [#/Vol] 7.7 10*3/uL Normal 4.4-11.0 [facility] Comment on above: Order Comment: 313.2 Performed By: #### L 501.1054, L101.5298, L100.4831 #### [facility] [place], [address] Carbon dioxide measurementOr dered By: Tab Dupont on 10-10-2024 CO2 [Moles/Vol] 22.0 mmol/L 21.0-32.0 [facility] Chloride measurementOrdered By: Tab Dupont on 10-10-2024 Chloride [Moles/Vol] 109 mmol/L High 98-107 [facility] Erythrocyte distribution wid th ratioOrdered By: Tab Dupont on 10-10-2024 Erythrocyte distribution width (RBC) [Ratio] 13.9 % 11.6-14.6 [facility] Erythrocyte distribution wid th standard deviationOrdered By: Tab Dupont on 10-10-2024 Erythrocyte distribution width (RBC) [Entitic vol] 47.8 fL High 35.1-43.9 [facility] Estimated glomerular filtrat ion rate (GFR) AmericanOrdered By: Tab Dupont on 10-10-2024 Estimated GFR (MDRD) Amer 189 mL/min >60 [facility] Comment on above: GFR Calc Glomerular filtration rate ( GFR) estimationOrdered By: Tab Dupont on 10-10-2024 Estimated GFR (MDRD) Non-Af Amer 156 mL/min >60 [facility] Comment on above: Non- GFR Calc Glucose measurementOrdered B y: Tab Dupont on 10-10-2024 Glucose [Mass/Vol] 108 mg/dL High 74-106 [facility] Comment on above: Fasting Glucose resu lt from 100 to 125 mg/dL suggests IMPAIRED HOMEOSTASIS per A.D.A. criteria. Hematocrit Auto (Bld) [Volum e fraction]Ordered By: Tab Dupont on 10-10-2024 Hematocrit (Bld) [Volume fraction] 42.2 % 40-54 [facility] Hemoglobin measurementOrdere d By: Tab Dupont on 10-10-2024 Hemoglobin (Bld) [Mass/Vol] 13.4 g/dL 13.0-16.5 [facility] MCV (mean corpuscular volume ) determinationOrdered By: Tab Dupont on 10-10-2024 MCV (RBC) [Entitic vol] 94.0 fL 80-[address] [facility] Mean corpuscular hemoglobin (MCH) determinationOrdered By: Tab Dupont on 10-10-2024 MCH (RBC) [Entitic mass] 29.8 pg 27.0-32.0 [facility] Mean corpuscular hemoglobin concentration (MCHC) determinationOrdered By: Tab Dupont on 10-10-2024 MCHC (RBC) [Mass/Vol] 31.8 g/dL Low 32-36 [facility] Mean platelet volume determi nationOrdered By: Tab Dupont on 10-10-2024 Platelet mean volume (Bld) [Entitic vol] 10.5 fL 6.2-12.0 [facility] Platelet countOrdered By: Vinh Lehman on 10-10-2024 Platelets (Bld) [#/Vol] 283 10*3/uL 150-450 [facility] Potassium measurementOrdered By: Tab Dupont on 10-10-2024 Potassium [Moles/Vol] 4.0 mmol/L 3.5-5.1 [facility] RBC Auto (Bld) [#/Vol]Ordere d By: Tab Dupont on 10-10-2024 RBC (Bld) [#/Vol] 4.49 10*6/uL Low 4.6-6.2 [facility] Serum anion gap measurementO rdered By: Tab Dupont on 10-10-2024 Anion gap [Moles/Vol] 7 mmol/L 5-15 [facility] Serum or plasma calcium randall urement (mass/volume)Ordered By: Tab Dupont on 10-10-2024 Calcium [Mass/Vol] 8.7 mg/dL 8.5-10.1 [facility] Serum or plasma creatinine m easurement (mass/volume)Ordered By: Tab Dupont on 10-10-2024 Creatinine [Mass/Vol] 0.56 mg/dL Low 0.70-1.30 [facility] Comment on above: The validity of the calculated GFR & GFRAA in patients over 70 years has not been determined. Clinical correlation is essential. Serum or plasma urea nitroge n measurement (mass/volume)Ordered By: Tab Dupont on 10-10-2024 Urea nitrogen [Mass/Vol] 11 mg/dL 7-18 [facility] Sodium levelOrdered By: Omar Dupont on 10-10-2024 Sodium [Moles/Vol] 139 mmol/L 136-145 [facility] White blood cell (WBC) count Ordered By: Tab Dupont on 10-10-2024 WBC (Bld) [#/Vol] 7.7 10*3/uL 4.4-11.0 [facility] Basic Metabolic Profile (BMP )on 10-03-2024 BUN/CRE 14.7 RATIO Normal 10-20 [facility] Comment on above: Order Comment: 313.2 Performed By: #### L 500.2500, L100.0500 #### [facility] [address] [place], [address] CA,Total 8.7 mg/dL Normal 8.5-10.1 [facility] Comment on above: Order Comment: 313.2 Performed By: #### L 500.2500, L100.0500 #### [facility] [address] [place], [address] Chloride [Moles/Vol] 109 mmol/L High 98-107 [facility] Comment on above: Order Comment: 313.2 Performed By: #### L 500.2500, L100.0500 #### [facility] [address] [place], [address] CO2 [Moles/Vol] 24.0 mmol/L Normal 21.0-32.0 [facility] Comment on above: Order Comment: 313.2 Performed By: #### L 500.2500, L100.0500 #### [facility] [address] [place], [address] Creatinine [Mass/Vol] 0.48 mg/dL Low 0.70-1.30 [facility] Comment on above: Order Comment: 313.2 Result Comment: The validity of the calculated GFR GFRAA in patients over 70 years has not been determined. Clinical correlation is essential. Performed By: #### L 500.2500, L100.0500 #### [facility] [address] [place], [address] EST GFR - AA 229 mL/min Normal >60 [facility] Comment on above: Order Comment: 313.2 Result Comment: Afri can Iranian GFR Calc Performed By: #### L 500.2500, L100.0500 #### [facility] [address] [place], [address] GAP 5 Normal 5-15 [facility] Comment on above: Order Comment: 313.2 Performed By: #### L 500.2500, L100.0500 #### [facility] [address] [place], [address] GFR/1.73 sq M.predicted among non-blacks MDRD (S/P/Bld) [Vol rate/Area] 189 mL/min/{1.73_m2} Normal >60 [facility] Comment on above: Order Comment: 313.2 Result Comment: Non- GFR Calc Performed By: #### L 500.2500, L100.0500 #### [facility] [address] [place], [address] Glucose [Mass/Vol] 105 mg/dL Normal 74-106 [facility] Comment on above: Order Comment: 313.2 Result Comment: Fast ing Glucose result from 100 to 125 mg/dL suggests IMPAIRED HOMEOSTASIS per A.D.A. criteria. Performed By: #### L 500.2500, L100.0500 #### [facility] [address] [place], [address] Potassium [Moles/Vol] 3.7 mmol/L Normal 3.5-5.1 [facility] Comment on above: Order Comment: 313.2 Performed By: #### L 500.2500, L100.0500 #### [facility] [address] [place], [address] Sodium [Moles/Vol] 138 mmol/L Normal 136-145 [facility] Comment on above: Order Comment: 313.2 Performed By: #### L 500.2500, L100.0500 #### [facility] [address] [place], [address] Urea nitrogen [Mass/Vol] 7 mg/dL Normal 7-18 [facility] Comment on above: Order Comment: 313.2 Performed By: #### L 500.2500, L100.0500 #### [facility] [address] [place], [address] Blood urea nitrogen (BUN)/cr eatinine ratioOrdered By: Tab Dupont on 10-03-2024 Urea nitrogen/Creatinine [Mass ratio] 14.7 mg/mg 10-20 [facility] CBC-Complete Blood Cnt No Di ffon 10-03-2024 Erythrocyte distribution width (RBC) [Ratio] 14.0 % Normal 11.6-14.6 [facility] Comment on above: Order Comment: 313.2 Performed By: #### L 500.2500, L100.0500 #### [facility] [address] [place], [address] Hematocrit (Bld) [Volume fraction] 38.4 % Low 40-54 [facility] Comment on above: Order Comment: 313.2 Performed By: #### L 500.2500, L100.0500 #### [facility] [address] [place], [address] Hemoglobin (Bld) [Mass/Vol] 12.5 g/dL Low 13.0-16.5 [facility] Comment on above: Order Comment: 313.2 Performed By: #### L 500.2500, L100.0500 #### [facility] [address] [place], [address] MCH (RBC) [Entitic mass] 30.3 pg Normal 27.0-32.0 [facility] Comment on above: Order Comment: 313.2 Performed By: #### L 500.2500, L100.0500 #### [facility] [address] [place], [address] MCHC (RBC) [Mass/Vol] 32.6 g/dL Normal 32-36 [facility] Comment on above: Order Comment: 313.2 Performed By: #### L 500.2500, L100.0500 #### [facility] [address] [place], [address] MCV (RBC) [Entitic vol] 93.0 fL Normal 80-[address] [facility] Comment on above: Order Comment: 313.2 Performed By: #### L 500.2500, L100.0500 #### [facility] [address] [place], [address] Platelet mean volume (Bld) [Entitic vol] 10.4 fL Normal 6.2-12.0 [facility] Comment on above: Order Comment: 313.2 Performed By: #### L 500.2500, L100.0500 #### [facility] [address] [place], [address] Platelets (Bld) [#/Vol] 284 10*3/uL Normal 150-450 [facility] Comment on above: Order Comment: 313.2 Performed By: #### L 500.2500, L100.0500 #### [facility] [address] [place], [address] RBC (Bld) [#/Vol] 4.13 10*6/uL Low 4.6-6.2 [facility] Comment on above: Order Comment: 313.2 Performed By: #### L 500.2500, L100.0500 #### [facility] [address] [place], [address] RDW SD 48.5 fl High 35.1-43.9 [facility] Comment on above: Order Comment: 313.2 Performed By: #### L 500.2500, L100.0500 #### [facility] [address] [place], [address] WBC (Bld) [#/Vol] 7.8 10*3/uL Normal 4.4-11.0 [facility] Comment on above: Order Comment: 313.2 Performed By: #### L 500.2500, L100.0500 #### [facility] [address] [place], [address] Carbon dioxide measurementOr dered By: Tab Dupont on 10-03-2024 CO2 [Moles/Vol] 24.0 mmol/L 21.0-32.0 [facility] Chloride measurementOrdered By: Tab Dupont on 10-03-2024 Chloride [Moles/Vol] 109 mmol/L High 98-107 [facility] Erythrocyte distribution wid th ratioOrdered By: Tab Dupont on 10-03-2024 Erythrocyte distribution width (RBC) [Ratio] 14.0 % 11.6-14.6 [facility] Erythrocyte distribution wid th standard deviationOrdered By: Tab Dupont on 10-03-2024 Erythrocyte distribution width (RBC) [Entitic vol] 48.5 fL High 35.1-43.9 [facility] Estimated glomerular filtrat ion rate (GFR) AmericanOrdered By: Tab Dupont on 10-03-2024 Estimated GFR (MDRD) Amer 229 mL/min >60 [facility] Comment on above: GFR Calc Glomerular filtration rate ( GFR) estimationOrdered By: Tab Dupont on 10-03-2024 Estimated GFR (MDRD) Non-Af Amer 189 mL/min >60 [facility] Comment on above: Non- GFR Calc Glucose measurementOrdered B y: Tab Dupont on 10-03-2024 Glucose [Mass/Vol] 105 mg/dL 74-106 [facility] Comment on above: Fasting Glucose resu lt from 100 to 125 mg/dL suggests IMPAIRED HOMEOSTASIS per A.D.A. criteria. Hematocrit Auto (Bld) [Volum e fraction]Ordered By: Tab Dupont on 10-03-2024 Hematocrit (Bld) [Volume fraction] 38.4 % Low 40-54 [facility] Hemoglobin measurementOrdere d By: Tab Dupont on 10-03-2024 Hemoglobin (Bld) [Mass/Vol] 12.5 g/dL Low 13.0-16.5 [facility] MCV (mean corpuscular volume ) determinationOrdered By: Tab Dupont on 10-03-2024 MCV (RBC) [Entitic vol] 93.0 fL 80-[address] [facility] Mean corpuscular hemoglobin (MCH) determinationOrdered By: Tab Dupont on 10-03-2024 MCH (RBC) [Entitic mass] 30.3 pg 27.0-32.0 [facility] Mean corpuscular hemoglobin concentration (MCHC) determinationOrdered By: Tab Dupont on 10-03-2024 MCHC (RBC) [Mass/Vol] 32.6 g/dL 32-36 [facility] Mean platelet volume determi nationOrdered By: Tab Dupont on 10-03-2024 Platelet mean volume (Bld) [Entitic vol] 10.4 fL 6.2-12.0 [facility] Platelet countOrdered By: Vinh Lehman on 10-03-2024 Platelets (Bld) [#/Vol] 284 10*3/uL 150-450 [facility] Potassium measurementOrdered By: Tab Dupont on 10-03-2024 Potassium [Moles/Vol] 3.7 mmol/L 3.5-5.1 [facility] RBC Auto (Bld) [#/Vol]Ordere d By: Tab Dupont on 10-03-2024 RBC (Bld) [#/Vol] 4.13 10*6/uL Low 4.6-6.2 [facility] Serum anion gap measurementO rdered By: Tab Dupont on 10-03-2024 Anion gap [Moles/Vol] 5 mmol/L 5-15 [facility] Serum or plasma calcium randall urement (mass/volume)Ordered By: Tab Dupont on 10-03-2024 Calcium [Mass/Vol] 8.7 mg/dL 8.5-10.1 [facility] Serum or plasma creatinine m easurement (mass/volume)Ordered By: Tab Dupont on 10-03-2024 Creatinine [Mass/Vol] 0.48 mg/dL Low 0.70-1.30 [facility] Comment on above: The validity of the calculated GFR & GFRAA in patients over 70 years has not been determined. Clinical correlation is essential. Serum or plasma urea nitroge n measurement (mass/volume)Ordered By: Tab Dupont on 10-03-2024 Urea nitrogen [Mass/Vol] 7 mg/dL 7-18 [facility] Sodium levelOrdered By: Omar Dupont on 10-03-2024 Sodium [Moles/Vol] 138 mmol/L 136-145 [facility] White blood cell (WBC) count Ordered By: Tab Dupont on 10-03-2024 WBC (Bld) [#/Vol] 7.8 10*3/uL 4.4-11.0 [facility] Patient Instructionson 09-30 Phlebotomist Lab Assistant Authentication Interface Message Text Completed UDS. Inserted 18Fr 10cc santana Call to schedule appt with Urology Dr Jorge Patel MD (Surgeon) [address] [facility] [address] [place] [address] Urology [place] [phone] Check renal CT scan given recurrent blood in urine POST URODYNAMIC TESTING DISCHARGE INSTRUCTIONS: It is normal to have some burning and tenderness with urination for the next 24 hours. It is important to drink plenty of fluids for the next day or two, unless restricted for medical reasons. Water is the best fluid to drink. A warm tub bath could also help to ease any discomfort where the catheters where placed. You may continue your diet, medications and activities as normal, unless given other instructions by your doctor. If you experience chills, a fever (temperature greater than 100.5 degrees Fahrenheit) or excessive burning on urination, call the office at [phone] Thursday through Thursday 8:00 AM to 4:30 PM. For emergencies, go the Emergency Room. If you do not already have a follow up appointment scheduled with your physician, call the office at [phone] to schedule one. Normal [facility] Progress Noteson 09-30-2024 Phlebotomist Lab Assistant Authentication Interface Message Text SPINAL CORD INJURY Urodynamics Clinic Note CC: Urodynamics 09/30/2024 Name: Anmol Reynolds Age: [age] year old Sex: male 06/13/2023 SCI Data Injury Date 10/05/2021 Injury Etiology Non-traumatic NLI T11 AIS A PCP: No primary care provider on file. HPI: Anmol Reynolds is 64 year old male here today for urodynamics testing to help guide diagnosis/management and ensure safe bladder. BLADDER MANAGEMENT Management: Santana catheter Issues: Ureteral stent for hydronephrosis in April 2024. Multiple UTI. On flomax. Catheter trauma Recently with catheter pulled last month resulting in hematuria. However with chronic gross hematuria. In SNF Changed q2-4 weeks UTI 2-3 times per year Medical or surgical Urologic history (not related to SCI): Some premorbid noctiuria (BPH?), Stent in 04/2024 (see above) Sensory awareness is altered. Unknown about filling (chronic santana). Sensation with cath trauma and scrotum but not with penis or cath change. Bladder emptying method: santana Frequency of volitional bladder emptying: NA Frequency of NON-volitional bladder emptying: urethral discharge Uses External Urine collecting system: Diapers Current Bladder medications: Flomax Former Bladder medications: Uses 18 Fr catheter Patient is mixed in/continent. Needs assistance. Current S/S of UTI: None (usual symptoms unknown) Hx AD: None Lower Urinary Tract Impairment/Awareness Urinary Tract Impairment Unrelated to Spinal Cord Lesion: Yes (Comment) Awareness of the Need to Empty the Bladder: Unknown Bladder Emptying (Main) - Select Maximum of Two Bladder Emptying: Indwelling catheter Indwelling Catheter: Transurethral Emptyings/Leakage/Aaliyah liances/Drugs/Symptom s Average Number of Voluntary Bladder Emptyings per 24 Hours During the Last Week: 0 Any Involuntary Urine Leakage (Incontinence) Within the Last Four Weeks: Not applicable Collecting Appliances for Urinary Incontinence: Yes, diaper/pad Any Drugs with Possible Influence on the Urinary Tract Within the Last Four Weeks: Yes, sphincter/bladder neck relaxant drugs (Alpha adrenergic blockers, etc. (Not intrasphincter injections)) Any Change in Lower Urinary Tract Symptoms Within the Last Year: Yes Other relevant history: Last [facility] imaging 04/2024 Last Urology 05/2027 s/p Cystoscopy, cystolithopaxy, bilateral ureteroscopy laser lithotripsy and ureteral stent exchange No current LUTS. Urinalysis: No results found for: "ULEUK", "UNITR", "UGLUCOSE", "URINEBLOOD", "UAPP", "UCOLOR", "UPH", "UPROTEIN", "USG", "UROBILI", URINEBILI Urine Culture (last 1 year) No lab values to display. Medications were not held prior to UDS including flomax Past Medical, Surgical, Family and Social history reviewed. Current Outpatient Medications Medication Sig Dispense Refill nitrofurantoin monohydrate macrocrystal (Macrobid) 100 MG capsule Take 1 Capsule by mouth 2 times daily for 5 days. 10 Capsule 0 Potassium Chloride 10 % SOLN nortriptyline (PAMELOR) 50 MG capsule 1 cap(s) orally once daily at bedtime tamsulosin (FLOMAX) 0.4 MG capsule Hyoscyamine Sulfate SL 0.[address] 0.125 mg under the tongue every 8 hours as needed. duloxetine (CYMBALTA) 60 MG capsule ferrous sulfate 325 (65 Fe) MG tablet Take 325 mg by mouth daily (with breakfast). HYDROmorphone (DILAUDID) 4 MG tablet imipenem-cilastatin (PRIMAXIN) 250 MG injection mirtazapine (REMERON) 7.5 MG tablet Multiple Vitamin (multivitamins) capsule Take 1 Capsule by mouth daily. zinc sulfate (ZINCATE) 220 (50 Zn) MG capsule Take 220 mg by mouth daily. oxycodone (ROXICODONE) 15 MG immediate release tablet pregabalin (LYRICA) 200 MG capsule Take 200 mg by mouth 3 times daily. insulin lispro (HumaLOG) 100 UNIT/ML injection Inject 0-28 Units under the skin. insulin glargine (LANTUS SOLOSTAR/BASAGLAR KWIKPEN) 100 UNIT/ML pen Inject 45 Units under the skin. cyclobenzaprine (FLEXERIL) 10 MG tablet No current facility-administered medications for this visit. No Known Allergies Denies symptomatic fevers, chills, CP, SOB, N, V or change in weakness, numbness tingling. Remaining ROS: All other systems reviewed and are negative. OBJECTIVE General: Alert, No acute distress HEENT: hearing normal Neck: Symmetrical CV: well-perfused extremities Resp: normal respiratory effort, symmetrical chest rise Abd: non-distended, obese Psych: Conversational, good eye contact Skin: Intact where observed MSK: No focal swelling PROCEDURE NOTE: I was present in the exam room for the critical portions of the procedure as above. We reviewed the procedure with patient along with the indications, options, alternatives, risks of having and not having procedure, benefits, and probability of success. We answered the patient's questions. We explained the expected post procedure symptoms including possible dysuria and infection. Pt consented to have procedure. A TIME OUT was p (more content not included)... Normal [facility] C-reactive protein measureme nt by high sensitivity methodOrdered By: Tab Dupont on 09-29-2024 C-Reactive Protein Extended Range 38.30 mg/L High 0.0-3.0 [facility] Comment on above: C-Reactive Protein ( CRP) provides useful information for thediagnosis, therapy and monitoring of inflammatory processesand associated diseases. For the evaluation of Relative Riskfor Cardiovascular Disease, a High Sensitivity CRP (HSCRP)should be ordered. CBC-Complete Blood Cnt No Di ffon 09-29-2024 Erythrocyte distribution width (RBC) [Ratio] 14.4 % Normal 11.6-14.6 [facility] Comment on above: Order Comment: 313.2 Performed By: #### L 501.6710, L101.9900, L100.0500 #### [facility] [address] [place], [address] Hematocrit (Bld) [Volume fraction] 40.3 % Normal 40-54 [facility] Comment on above: Order Comment: 313.2 Performed By: #### L 501.6710, L101.9900, L100.0500 #### [facility] [address] [place], [address] Hemoglobin (Bld) [Mass/Vol] 13.3 g/dL Normal 13.0-16.5 [facility] Comment on above: Order Comment: 313.2 Performed By: #### L 501.6710, L101.9900, L100.0500 #### [facility] [address] [place], [address] MCH (RBC) [Entitic mass] 31.4 pg Normal 27.0-32.0 [facility] Comment on above: Order Comment: 313.2 Performed By: #### L 501.6710, L101.9900, L100.0500 #### [facility] [address] [place], [address] MCHC (RBC) [Mass/Vol] 33.0 g/dL Normal 32-36 [facility] Comment on above: Order Comment: 313.2 Performed By: #### L 501.6710, L101.9900, L100.0500 #### [facility] [address] [place], [address] MCV (RBC) [Entitic vol] 95.0 fL High 80-[address] [facility] Comment on above: Order Comment: 313.2 Performed By: #### L 501.6710, L101.9900, L100.0500 #### [facility] [address] [place], [address] Platelet mean volume (Bld) [Entitic vol] 10.6 fL Normal 6.2-12.0 [facility] Comment on above: Order Comment: 313.2 Performed By: #### L 501.6710, L101.9900, L100.0500 #### [facility] [address] [place], [address] Platelets (Bld) [#/Vol] 270 10*3/uL Normal 150-450 [facility] Comment on above: Order Comment: 313.2 Performed By: #### L 501.6710, L101.9900, L100.0500 #### [facility] [address] [place], [address] RBC (Bld) [#/Vol] 4.24 10*6/uL Low 4.6-6.2 [facility] Comment on above: Order Comment: 313.2 Performed By: #### L 501.6710, L101.9900, L100.0500 #### [facility] [address] [place], [address] RDW SD 50.0 fl High 35.1-43.9 [facility] Comment on above: Order Comment: 313.2 Performed By: #### L 501.6710, L101.9900, L100.0500 #### [facility] [address] [place], [address] WBC (Bld) [#/Vol] 8.7 10*3/uL Normal 4.4-11.0 [facility] Comment on above: Order Comment: 313.2 Performed By: #### L 501.6710, L101.9900, L100.0500 #### [facility] [address] [place], [address] CRPon 09-29-2024 C-REACTIVE PROT 38.30 mg/L High 0.0-3.0 [facility] Comment on above: Order Comment: 313.2 Result Comment: C-Re active Protein (CRP) provides useful information for the diagnosis, therapy and monitoring of inflammatory processes and associated diseases. For the evaluation of Relative Risk for Cardiovascular Disease, a High Sensitivity CRP (HSCRP) should be ordered. Performed By: #### L 501.6710, L101.9900, L100.0500 #### [facility] [address] [place], [address] Erythrocyte Sed Rateon 09-29 SED RATE 47 mm/hr High 0-20 [facility] Comment on above: Order Comment: 313.2 Performed By: #### L 501.6710, L101.9900, L100.0500 #### [facility] [address] [place], [address] Erythrocyte distribution wid th ratioOrdered By: Tab Dupont on 09-29-2024 Erythrocyte distribution width (RBC) [Ratio] 14.4 % 11.6-14.6 [facility] Erythrocyte distribution wid th standard deviationOrdered By: Tab Dupont on 09-29-2024 Erythrocyte distribution width (RBC) [Entitic vol] 50.0 fL High 35.1-43.9 [facility] Erythrocyte sedimentation ra teOrdered By: Tab Dupont on 09-29-2024 ESR (Bld) [Velocity] 47 mm/h High 0-20 [facility] Hematocrit Auto (Bld) [Volum e fraction]Ordered By: Tab Dupont on 09-29-2024 Hematocrit (Bld) [Volume fraction] 40.3 % 40-54 [facility] Hemoglobin measurementOrdere d By: Tab Dupont on 09-29-2024 Hemoglobin (Bld) [Mass/Vol] 13.3 g/dL 13.0-16.5 [facility] MCV (mean corpuscular volume ) determinationOrdered By: Tab Dupont on 09-29-2024 MCV (RBC) [Entitic vol] 95.0 fL High 80-[address] [facility] Mean corpuscular hemoglobin (MCH) determinationOrdered By: Tab Dupont on 09-29-2024 MCH (RBC) [Entitic mass] 31.4 pg 27.0-32.0 [facility] Mean corpuscular hemoglobin concentration (MCHC) determinationOrdered By: Tab Dupont on 09-29-2024 MCHC (RBC) [Mass/Vol] 33.0 g/dL 32-36 [facility] Mean platelet volume determi nationOrdered By: Tab Dupont on 09-29-2024 Platelet mean volume (Bld) [Entitic vol] 10.6 fL 6.2-12.0 [facility] Platelet countOrdered By: Vinh Lehman on 09-29-2024 Platelets (Bld) [#/Vol] 270 10*3/uL 150-450 [facility] RBC Auto (Bld) [#/Vol]Ordere d By: Tab Dupont on 09-29-2024 RBC (Bld) [#/Vol] 4.24 10*6/uL Low 4.6-6.2 [facility] White blood cell (WBC) count Ordered By: Tab Dupont on 09-29-2024 WBC (Bld) [#/Vol] 8.7 10*3/uL 4.4-11.0 [facility] Basic Metabolic Profile (BMP )on 09-20-2024 BUN/CRE 26.4 RATIO High 10-20 [facility] Comment on above: Order Comment: 313.2 Performed By: #### L 500.2500 #### [facility] [address] [place], [address] CA,Total 8.2 mg/dL Low 8.5-10.1 [facility] Comment on above: Order Comment: 313.2 Performed By: #### L 500.2500 #### [facility] [address] [place], [address] Chloride [Moles/Vol] 107 mmol/L Normal 98-107 [facility] Comment on above: Order Comment: 313.2 Performed By: #### L 500.2500 #### [facility] [address] [place], [address] CO2 [Moles/Vol] 24.0 mmol/L Normal 21.0-32.0 [facility] Comment on above: Order Comment: 313.2 Performed By: #### L 500.2500 #### [facility] [address] [place], [address] Creatinine [Mass/Vol] 0.61 mg/dL Low 0.70-1.30 [facility] Comment on above: Order Comment: 313.2 Result Comment: The validity of the calculated GFR GFRAA in patients over 70 years has not been determined. Clinical correlation is essential. Performed By: #### L 500.2500 #### [facility] [address] [place], [address] EST GFR - AA 173 mL/min Normal >60 [facility] Comment on above: Order Comment: 313.2 Result Comment: Afri can Iranian GFR Calc Performed By: #### L 500.2500 #### [facility] [address] [place], [address] GAP 6 Normal 5-15 [facility] Comment on above: Order Comment: 313.2 Performed By: #### L 500.2500 #### [facility] [address] [place], [address] GFR/1.73 sq M.predicted among non-blacks MDRD (S/P/Bld) [Vol rate/Area] 143 mL/min/{1.73_m2} Normal >60 [facility] Comment on above: Order Comment: 313.2 Result Comment: Non- GFR Calc Performed By: #### L 500.2500 #### [facility] [address] [place], [address] Glucose [Mass/Vol] 134 mg/dL High 74-106 [facility] Comment on above: Order Comment: 313.2 Result Comment: Fast ing Glucose result greater than or equal to 126 mg/dL suggests DIABETES MELLITUS per A.D.A. criteria. Performed By: #### L 500.2500 #### [facility] [address] [place], [address] Potassium [Moles/Vol] 3.3 mmol/L Low 3.5-5.1 [facility] Comment on above: Order Comment: 313.2 Performed By: #### L 500.2500 #### [facility] [address] [place], [address] Sodium [Moles/Vol] 137 mmol/L Normal 136-145 [facility] Comment on above: Order Comment: 313.2 Performed By: #### L 500.2500 #### [facility] [address] [place], [place], [address] Urea nitrogen [Mass/Vol] 16 mg/dL Normal 7-18 [facility] Comment on above: Order Comment: 313.2 Performed By: #### L 500.2500 #### [facility] [address] [place], [place], [id number] Blood urea nitrogen (BUN)/cr eatinine ratioOrdered By: Tab Dupont on 09-20-2024 Urea nitrogen/Creatinine [Mass ratio] 26.4 mg/mg High 10-20 [facility] Carbon dioxide measurementOr dered By: Tab Dupont on 09-20-2024 CO2 [Moles/Vol] 24.0 mmol/L 21.0-32.0 [facility] Chloride measurementOrdered By: Tab Dupont on 09-20-2024 Chloride [Moles/Vol] 107 mmol/L 98-107 [facility] Estimated glomerular filtrat ion rate (GFR) AmericanOrdered By: Tab Dupont on 09-20-2024 Estimated GFR (MDRD) Amer 173 mL/min >60 [facility] Comment on above: GFR Calc Glomerular filtration rate ( GFR) estimationOrdered By: Tab Dupont on 09-20-2024 Estimated GFR (MDRD) Non-Af Amer 143 mL/min >60 [facility] Comment on above: Non- GFR Calc Glucose measurementOrdered B y: Tab Dupont on 09-20-2024 Glucose [Mass/Vol] 134 mg/dL High 74-106 [facility] Comment on above: Fasting Glucose resu lt greater than or equal to 126 mg/dL suggests DIABETES MELLITUS per A.D.A. criteria. Potassium measurementOrdered By: Tab Dupont on 09-20-2024 Potassium [Moles/Vol] 3.3 mmol/L Low 3.5-5.1 [facility] Serum anion gap measurementO rdered By: Tab Dupont on 09-20-2024 Anion gap [Moles/Vol] 6 mmol/L 5-15 [facility] Serum or plasma calcium randall urement (mass/volume)Ordered By: Tab Dupont on 09-20-2024 Calcium [Mass/Vol] 8.2 mg/dL Low 8.5-10.1 [facility] Serum or plasma creatinine m easurement (mass/volume)Ordered By: Tab Dupont on 09-20-2024 Creatinine [Mass/Vol] 0.61 mg/dL Low 0.70-1.30 [facility] Comment on above: The validity of the calculated GFR & GFRAA in patients over 70 years has not been determined. Clinical correlation is essential. Serum or plasma urea nitroge n measurement (mass/volume)Ordered By: Tab Dupont on 09-20-2024 Urea nitrogen [Mass/Vol] 16 mg/dL 04-21 [facility] Sodium levelOrdered By: Omar Dupont on 09-20-2024 Sodium [Moles/Vol] 137 mmol/L 136-145 [facility] Progress Noteson 08-22-2024 Phlebotomist Lab Assistant Authentication Interface Message Text Rheumatology New visit Note Referring Physician: No primary care provider on file. Reason for referral: New patient, establish relationship History of present illness: Anmol Reynolds is a 64 year old male with PMH Paraplegia. Referred for osteoporosis evaluation. Found to have sacral insufficiency fracture. Recent DEXA 06/2024 showing OP with lowest T-score -4.6 at the right femoral neck and right total hip. Does not think that he is taking a calcium or vitamin D supplement, but he is not sure what they are giving him at his facility. He eats yogurt daily and drinks milk occasionally. He is not sure if there is a family history of Osteoporosis, but no family history of fragility fracture. Had spinal surgery that was complicated by infection. Had repeat infection to remove hardware. Had a 3rd spinal surgery with fusion and when he awoke he was paralyzed. No dysphagia or GERD. Has a crown that recently broke off and a tooth that recently broke as well. He is going to need tooth extraction at some point. PMH/PSH: Paraplegia; s/p spinal surgery x 3 Social History: Current smoker 10 cigarettes daily, No EtOH Family History: No rheumatologic family history Meds: Per med list Allergies: No Known Allergies Past Medical History: There is no previous medical history on file. Past Surgical History: There is no previous surgical history on file. Social History: Social History Socioeconomic History Marital status: Unknown Social Drivers of Health Financial Resource Strain: Low Risk (04/24/2023) Received from [facility] Overall Financial Resource Strain (CARDIA) Difficulty of Paying Living Expenses: Not hard at all Food Insecurity: No Food Insecurity (05/18/2024) Received from [facility] Hunger Vital Sign Worried About Running Out of Food in the Last Year: Never true Ran Out of Food in the Last Year: Never true Transportation Needs: No Transportation Needs (05/18/2024) Received from [facility] PRAPARE - Transportation Lack of Transportation (Medical): No Lack of Transportation (Non-Medical): No Intimate Partner Violence: Not At Risk (05/18/2024) [facility] Humiliation, Afraid, Rape, and Kick questionnaire Fear of Current or Ex-Partner: No Emotionally Abused: No Physically Abused: No Sexually Abused: No Family History: No family history on file. Medications: Current Outpatient Medications on File Prior to Visit Medication Sig Dispense Refill Potassium Chloride 10 % SOLN nortriptyline (PAMELOR) 50 MG capsule 1 cap(s) orally once daily at bedtime tamsulosin (FLOMAX) 0.4 MG capsule Hyoscyamine Sulfate SL 0.[address] 0.125 mg under the tongue every 8 hours as needed. duloxetine (CYMBALTA) 60 MG capsule ferrous sulfate 325 (65 Fe) MG tablet Take 325 mg by mouth daily (with breakfast). HYDROmorphone (DILAUDID) 4 MG tablet imipenem-cilastatin (PRIMAXIN) 250 MG injection mirtazapine (REMERON) 7.5 MG tablet Multiple Vitamin (multivitamins) capsule Take 1 Capsule by mouth daily. zinc sulfate (ZINCATE) 220 (50 Zn) MG capsule Take 220 mg by mouth daily. oxycodone (ROXICODONE) 15 MG immediate release tablet pregabalin (LYRICA) 200 MG capsule Take 200 mg by mouth 3 times daily. insulin lispro (HumaLOG) 100 UNIT/ML injection Inject 0-28 Units under the skin. insulin glargine (LANTUS SOLOSTAR/BASAGLAR KWIKPEN) 100 UNIT/ML pen Inject 45 Units under the skin. cyclobenzaprine (FLEXERIL) 10 MG tablet No current facility-administered medications on file prior to visit. PHYSICAL EXAMINATION: Awake, alert, and in NAD Laying in bed Breathing comfortably on room air LABS: CBC No lab values to display. BMP (last 1 year, up to 8 values) No lab values to display. LFT's (last 3 years, up to 8 values) No lab values to display. No results found for: ESR No results found for: CRP Imaging: DEXA 06/2024: FINDINGS: T score is -3.9 for the bone mineral density of 0.498 g/cm2 for the left femoral neck. T score is -4.6 for the bone mineral density of 0.398 g/cm2 for the right femoral neck. T score is -4.2 for the bone mineral density of 0.480 g/cm2 for the total left hip. T score is -4.6 for the bone mineral density of 0.424 g/cm2 for the total right hip. T score is 2.6 for the bone mineral density of 1.107 g/cm2 for the left radius 33 %. IMPRESSION: 1. The lowest measured bone mineral density site is the right femoral neck and total right hip and is osteoporosis based on its T score of -4.6. The fracture risk is high. 2. The FRAX model estimates the ten year probability of an osteoporotic related fracture to be 46.7 % and the ten year probability of a hip fracture to be 27.3 %, based on the bone mineral density of the bilateral femoral necks and history of adult fracture. ASSESSMENT/PLAN: Anmol Reynolds is a 64 year old male with PMH Paraplegia. He has severe Osteoporosis with lowest T-score - (more content not included)... Normal [facility] Telephone Encounteron 2023 Phlebotomist Lab Assistant Authentication Interface Message Text Spoke with Doug at Care Facility where pt resides and given the date and time of SPEECH LANGUAGE PATHOLOGIST video visit with Dr. Shultz at 8:20 am on 08/22/24. This information will be relayed to pt. Normal [facility] Addendum Noteon 08-01-2024 Phlebotomist Lab Assistant [employer] Interface Message Text Addended by: FAISAL SIMEON on: 08/01/2024 02:57 PM Modules accepted: Level of Service Normal [facility] Patient Instructionson 08-01 Phlebotomist Lab Assistant Authentication Interface Message Text -Continue PT/OT -Please follow your appoitment with pain team and rheumatology -You are scheduled for bladder study on 09/30/24 -continue scheduled bowel care daily Normal [facility] Progress Noteson 07-31-2024 Phlebotomist Lab Assistant Authentication Interface Message Text Documentation: Mode: Video Consent: This visit was initiated by the patient. Audio and visual communication was utilized in real-time. I confirmed understanding of risks and benefits of telehealth visits and obtained consent to proceed with the telemedicine visit. Location of Patient: Nursing Facility Time-Based Billing Justifications: Charting in Epic Patient visit (including performing a medically appropriate exam) Obtaining history (or reviewing separately obtained history) SPINAL CORD INJURY CLINIC Visit date: 08/01/2024 PCP: No primary care provider on file. CC: Comprehensive follow up of spinal cord injury and resultant complications HPI: Name: Anmol Reynolds Age: [age] year old Sex: male 06/13/2023 SCI Data Injury Date 10/05/2021 Injury Etiology Non-traumatic NLI T11 AIS A Patient is a 63 yo with h/o paraplegia following spinal surgery ~2 yrs ago in [place] . In 2019, pt had his first back surgery performed by [facility] which was an interbody fusion. 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 At that point, the hospital took the hardware out and did not replace it with the goal of treating the infection. 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 After the infection was treated, [facility] extended his fusion, decompressed the back, and replaced all hardware. At that time he lost all motor and sensation to his lower extremities. He was independent uptill december 2021 till his last spine surgery two year ago.Since 2021 he is in care home and he changes 5 care home so far. Currently SNF [facility]. Last seen on 06/13/24 in clinic and recommendations was: -Continue PT/OT -Bowel care: schedule bowel care once/day (either after breakfast or dinner) - using suppository and manual stimulation over commode chair will be more helpful than over bed . - Continue skin care - Follow [facility] service consult( we requested today ) for benefits eligibility - Bladder: We ordered today Urodynamic study for your bladder evaluation (to see your bladder status post spinal cord injury) Return to Clinic: Follow up in about 6 weeks (around 07/25/2024) for video visit (telehealth). Patient was accompanied by none . The patient gave permission to discuss their medical information, including PHI, in their presence. -Neuropathic pain Both legs on pregabalin 200mg TID , following with pain med. Will have appointment on 08/04 -Bowel care schedule once day every morning - on the bed -Sacral wound healing- being followed with wound care at care home. -Continued PT/OT in care home -Spine team see him after MRI spine as per patient and they ordered DXA scan -Recent DEXA-Osteoprosis- refefered to rehumatology by Dr mejia(spine team)- rheumatology will see him -We discuss with him about option of participation in adaptive sports Medication, PMHx/PSHx, Fam Hx, Allergy, Problem List, Immunization reconciliation completed Current Outpatient Medications Medication Sig Dispense Refill Potassium Chloride 10 % SOLN nortriptyline (PAMELOR) 50 MG capsule 1 cap(s) orally once daily at bedtime tamsulosin (FLOMAX) 0.4 MG capsule Hyoscyamine Sulfate SL 0.[address] 0.125 mg under the tongue every 8 hours as needed. duloxetine (CYMBALTA) 60 MG capsule ferrous sulfate 325 (65 Fe) MG tablet Take 325 mg by mouth daily (with breakfast). HYDROmorphone (DILAUDID) 4 MG tablet imipenem-cilastatin (PRIMAXIN) 250 MG injection mirtazapine (REMERON) 7.5 MG tablet Multiple Vitamin (multivitamins) capsule Take 1 Capsule by mouth daily. zinc sulfate (ZINCATE) 220 (50 Zn) MG capsule Take 220 mg by mouth daily. oxycodone (ROXICODONE) 15 MG immediate release tablet pregabalin (LYRICA) 200 MG capsule Take 200 mg by mouth 3 times daily. insulin lispro (HumaLOG) 100 UNIT/ML injection Inject 0-28 Units under the skin. insulin glargine (LANTUS SOLOSTAR/BASAGLAR KWIKPEN) 100 UNIT/ML pen Inject 45 Units under the skin. cyclobenzaprine (FLEXERIL) 10 MG tablet No current facility-administered medications for this visit. No Known Allergies No past medical history on file. No past surgical history on file. 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 Dependent for transfer. Able to manual wheelchair independently SCI REVIEW OF SYSTEMS BOWEL MANAGEMENT Management: Bowel care schedule once day every morning - on the bed Issues: BLADDER MANAGEMENT Management: Santana catheter Issues: Urethral stent for hydronephrosis. Multiple UTI. On flomax. Catheter trauma SEXUALITY Not discussed this visit Active: Issues: SPASTICITY No spasticity or spasms reported Severity/Freq: not sev (more content not included)... Normal [facility] MR C-SPINE W/Oon 07-11-2024 MR C-SPINE W/O EXAMINATION: MR C-SPINE W/O 07/10/2024 05:06 PM CLINICAL HISTORY: Neck pain, 6 weeks or more ASSOCIATED DIAGNOSIS: Sacral insufficiency fracture, initial encounter ORDERING PROVIDER: [employer] NOTE: Best positioning and images at that time, reminded to hold still, [place] COMPARISON: None TECHNIQUE: Patient questionnaire was completed, and was reviewed by MRI personnel prior to the patient entering the scanner. Multiplanar, multisequence MR imaging of the cervical spine was performed without intravenous contrast. FINDINGS: Counting reference: Craniocervical junction. Anatomic variants: None. Alignment: Normal. Vertebral Body Height: Normal. Bone Marrow: Mild multilevel degenerative marrow signal changes with disc dessication and height loss. Cord: Cord indentation seen at C3-C4 level. No cord edema. Craniocervical Junction, Cervical Soft Tissues and Included Brain: Within normal limits. Unless otherwise specified, spinal canal stenosis is due to posterior disc osteophyte complexes/endplate spurring, and neural foraminal stenosis is due to uncovertebral spurring and facet hypertrophy. C2-C3: No significant stenosis. C3-C4: Severe narrowing of right and moderate narrowing of left neural foramina and moderate narrowing of the canal with cord indentation. C4-C5: Moderate to severe narrowing of right neural foramina and mild narrowing of the canal. C5-C6: Mild to moderate narrowing of right neural foramina. C6-C7: Mild narrowing of right neural foramina. C7-T1: Mild narrowing of bilateral neural foramina. 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 IMPRESSION: Multilevel degenerative changes in the cervical spine as described above. Moderate narrowing of the canal at C3-C4 level with cord indentation. 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 MACRO: None Normal [facility] MR Cervical spine NIGHAT champion 07-11-2024 EXAMINATION: MR C-SPINE W/O 07/10/2024 05:06 PM CLINICAL HISTORY: Neck pain, 6 weeks or more ASSOCIATED DIAGNOSIS: Sacral insufficiency fracture, initial encounter ORDERING PROVIDER: [employer] NOTE: Best positioning and images at that time, reminded to hold still, [place] COMPARISON: None TECHNIQUE: Patient questionnaire was completed, and was reviewed by MRI personnel prior to the patient entering the scanner. Multiplanar, multisequence MR imaging of the cervical spine was performed without intravenous contrast. FINDINGS: Counting reference: Craniocervical junction. Anatomic variants: None. Alignment: Normal. Vertebral Body Height: Normal. Bone Marrow: Mild multilevel degenerative marrow signal changes with disc dessication and height loss. Cord: Cord indentation seen at C3-C4 level. No cord edema. Craniocervical Junction, Cervical Soft Tissues and Included Brain: Within normal limits. Unless otherwise specified, spinal canal stenosis is due to posterior disc osteophyte complexes/endplate spurring, and neural foraminal stenosis is due to uncovertebral spurring and facet hypertrophy. C2-C3: No significant stenosis. C3-C4: Severe narrowing of right and moderate narrowing of left neural foramina and moderate narrowing of the canal with cord indentation. C4-C5: Moderate to severe narrowing of right neural foramina and mild narrowing of the canal. C5-C6: Mild to moderate narrowing of right neural foramina. C6-C7: Mild narrowing of right neural foramina. C7-T1: Mild narrowing of bilateral neural foramina. 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 IMPRESSION: Multilevel degenerative changes in the cervical spine as described above. Moderate narrowing of the canal at C3-C4 level with cord indentation. 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 MACRO: None RADIOLOGY Del Leslie MD - 07/11/2024 EXAMINATION: MR C-SPINE W/O 07/10/2024 05:06 PM CLINICAL HISTORY: Neck pain, 6 weeks or more ASSOCIATED DIAGNOSIS: Sacral insufficiency fracture, initial encounter ORDERING PROVIDER: [employer] NOTE: Best positioning and images at that time, reminded to hold still, [place] COMPARISON: None TECHNIQUE: Patient questionnaire was completed, and was reviewed by MRI personnel prior to the patient entering the scanner. Multiplanar, multisequence MR imaging of the cervical spine was performed without intravenous contrast. FINDINGS: Counting reference: Craniocervical junction. Anatomic variants: None. Alignment: Normal. Vertebral Body Height: Normal. Bone Marrow: Mild multilevel degenerative marrow signal changes with disc dessication and height loss. Cord: Cord indentation seen at C3-C4 level. No cord edema. Craniocervical Junction, Cervical Soft Tissues and Included Brain: Within normal limits. Unless otherwise specified, spinal canal stenosis is due to posterior disc osteophyte complexes/endplate spurring, and neural foraminal stenosis is due to uncovertebral spurring and facet hypertrophy. C2-C3: No significant stenosis. C3-C4: Severe narrowing of right and moderate narrowing of left neural foramina and moderate narrowing of the canal with cord indentation. C4-C5: Moderate to severe narrowing of right neural foramina and mild narrowing of the canal. C5-C6: Mild to moderate narrowing of right neural foramina. C6-C7: Mild narrowing of right neural foramina. C7-T1: Mild narrowing of bilateral neural foramina. 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 IMPRESSION: Multilevel degenerative changes in the cervical spine as described above. Moderate narrowing of the canal at C3-C4 level with cord indentation. 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 MACRO: None [facility] MR T-SPINE W/Oon 07-11-2024 MR T-SPINE W/O EXAMINATION: MR T-SPINE W/O 07/10/2024 05:03 PM CLINICAL HISTORY: spinal stenosis ASSOCIATED DIAGNOSIS: Sacral insufficiency fracture, initial encounter ORDERING PROVIDER: [employer] NOTE: Best positioning and images at that time, reminded to hold still, [place] COMPARISON: None TECHNIQUE: Patient questionnaire was completed and was reviewed by MRI personnel prior to the patient entering the scanner. Multiplanar, multisequence MR imaging of the thoracic spine was performed without intravenous contrast. FINDINGS: Alignment: Thoracic kyphosis. Posterior fusion seen from T12 through L5. Vertebral Body Height: Mild chronic loss of height of T11, T5, and T2. Bone Marrow: Mild multilevel degenerative marrow signal changes with disc dessication and height loss. Cord: Normal signal intensity and morphology. Paraspinal Soft Tissues: Normal. Canal and Foramina: Mild multilevel degenerative changes are present without any significant narrowing or compression in the thoracic spinal canal. IMPRESSION: Postoperative changes and degenerative changes as described above. Mild chronic loss of height of T11, T5 and T2. MACRO: None Normal [facility] MR Thoracic spine WO contras ton 07-11-2024 EXAMINATION: MR T-SPINE W/O 07/10/2024 05:03 PM CLINICAL HISTORY: spinal stenosis ASSOCIATED DIAGNOSIS: Sacral insufficiency fracture, initial encounter ORDERING PROVIDER: OTIS MEJIA TECHNJUNIE NOTE: Best positioning and images at that time, reminded to hold still, [place] COMPARISON: None TECHNIQUE: Patient questionnaire was completed and was reviewed by MRI personnel prior to the patient entering the scanner. Multiplanar, multisequence MR imaging of the thoracic spine was performed without intravenous contrast. FINDINGS: Alignment: Thoracic kyphosis. Posterior fusion seen from T12 through L5. Vertebral Body Height: Mild chronic loss of height of T11, T5, and T2. Bone Marrow: Mild multilevel degenerative marrow signal changes with disc dessication and height loss. Cord: Normal signal intensity and morphology. Paraspinal Soft Tissues: Normal. Canal and Foramina: Mild multilevel degenerative changes are present without any significant narrowing or compression in the thoracic spinal canal. IMPRESSION: Postoperative changes and degenerative changes as described above. Mild chronic loss of height of T11, T5 and T2. MACRO: None RADIOLOGY Del Leslie MD - 07/11/2024 EXAMINATION: MR T-SPINE W/O 07/10/2024 05:03 PM CLINICAL HISTORY: spinal stenosis ASSOCIATED DIAGNOSIS: Sacral insufficiency fracture, initial encounter ORDERING PROVIDER: OTIS MEJIA TECHNJUNIE NOTE: Best positioning and images at that time, reminded to hold still, [place] COMPARISON: None TECHNIQUE: Patient questionnaire was completed and was reviewed by MRI personnel prior to the patient entering the scanner. Multiplanar, multisequence MR imaging of the thoracic spine was performed without intravenous contrast. FINDINGS: Alignment: Thoracic kyphosis. Posterior fusion seen from T12 through L5. Vertebral Body Height: Mild chronic loss of height of T11, T5, and T2. Bone Marrow: Mild multilevel degenerative marrow signal changes with disc dessication and height loss. Cord: Normal signal intensity and morphology. Paraspinal Soft Tissues: Normal. Canal and Foramina: Mild multilevel degenerative changes are present without any significant narrowing or compression in the thoracic spinal canal. IMPRESSION: Postoperative changes and degenerative changes as described above. Mild chronic loss of height of T11, T5 and T2. MACRO: None [facility] MR Thoracic spine WO contras tOrdered By: Del Leslie on 07-11-2024 [facility] Work Phone: No Panel Informationon 07-10 Radiology Study observation (narrative) [facility] Basic Metabolic Profile (BMP )on 07-04-2024 BUN/CRE 18.2 RATIO Normal 10-20 [facility] Comment on above: Order Comment: 313.2 Performed By: #### L 501.6710, L101.9900, L100.0500 #### [facility] [address] [place], [address] CA,Total 8.6 mg/dL Normal 8.5-10.1 [facility] Comment on above: Order Comment: 313.2 Performed By: #### L [id number], L101.9900, L100.0500 #### [facility] [address] [facility] [address] Chloride [Moles/Vol] 108 mmol/L High 98-107 [facility] Comment on above: Order Comment: 313.2 Performed By: #### L [id number], L101.9900, L100.0500 #### [facility] [address] [place], [address] CO2 [Moles/Vol] 25.0 mmol/L Normal 21.0-32.0 [facility] Comment on above: Order Comment: 313.2 Performed By: #### L [id number], L101.9900, L100.0500 #### [facility] [address] [place], [address] Creatinine [Mass/Vol] 0.50 mg/dL Low 0.70-1.30 [facility] Comment on above: Order Comment: 313.2 Result Comment: The validity of the calculated GFR GFRAA in patients over 70 years has not been determined. Clinical correlation is essential. Performed By: #### L 501.6710, L101.9900, L100.0500 #### [facility] [address] [place], [address] EST GFR - AA 219 mL/min Normal >60 [facility] Comment on above: Order Comment: 313.2 Result Comment: Afri can Iranian GFR Calc Performed By: #### L [id number], L101.9900, L100.0500 #### [facility] [address] [place], [address] GAP 7 Normal 5-15 [facility] Comment on above: Order Comment: 313.2 Performed By: #### L [id number], L101.9900, L100.0500 #### [facility] [address] [place], [address] GFR/1.73 sq M.predicted among non-blacks MDRD (S/P/Bld) [Vol rate/Area] 181 mL/min/{1.73_m2} Normal >60 [facility] Comment on above: Order Comment: 313.2 Result Comment: Non- GFR Calc Performed By: #### L 501.6710, L101.9900, L100.0500 #### [facility] [address] [place], [address] Glucose [Mass/Vol] 86 mg/dL Normal 74-106 [facility] Comment on above: Order Comment: 313.2 Performed By: #### L 501.6710, L101.9900, L100.0500 #### [facility] [address] [place], [address] Potassium [Moles/Vol] 3.8 mmol/L Normal 3.5-5.1 [facility] Comment on above: Order Comment: 313.2 Performed By: #### L 501.6710, L101.9900, L100.0500 #### [facility] [address] [place], [address] Sodium [Moles/Vol] 140 mmol/L Normal 136-145 [facility] Comment on above: Order Comment: 313.2 Performed By: #### L 501.6710, L101.9900, L100.0500 #### [facility] [address] [place], [address] Urea nitrogen [Mass/Vol] 9 mg/dL Normal 7-18 [facility] Comment on above: Order Comment: 313.2 Performed By: #### L 501.6710, L101.9900, L100.0500 #### [facility] [address] [place], [address] CBC-Complete Blood Cnt No Di ffon 07-04-2024 Erythrocyte distribution width (RBC) [Ratio] 14.8 % High 11.6-14.6 [facility] Comment on above: Order Comment: 313.2 Performed By: #### L 501.6710, L101.9900, L100.0500 #### [facility] [address] [place], [address] Hematocrit (Bld) [Volume fraction] 39.4 % Low 40-54 [facility] Comment on above: Order Comment: 313.2 Performed By: #### L [id number], L101.9900, L100.0500 #### [facility] [address] [place], [address] Hemoglobin (Bld) [Mass/Vol] 12.7 g/dL Low 13.0-16.5 [facility] Comment on above: Order Comment: 313.2 Performed By: #### L 501.6710, L101.9900, L100.0500 #### [facility] [address] [place], [address] MCH (RBC) [Entitic mass] 30.3 pg Normal 27.0-32.0 [facility] Comment on above: Order Comment: 313.2 Performed By: #### L 501.6710, L101.9900, L100.0500 #### [facility] [address] [place], [address] MCHC (RBC) [Mass/Vol] 32.2 g/dL Normal 32-36 [facility] Comment on above: Order Comment: 313.2 Performed By: #### L 501.6710, L101.9900, L100.0500 #### [facility] [address] [place], [address] MCV (RBC) [Entitic vol] 94.0 fL Normal 80-94 [facility] Comment on above: Order Comment: 313.2 Performed By: #### L [id number], L101.9900, L100.0500 #### [facility] [address] [place], [address] Platelet mean volume (Bld) [Entitic vol] 11.0 fL Normal 6.2-12.0 [facility] Comment on above: Order Comment: 313.2 Performed By: #### L [id number], L101.9900, L100.0500 #### [facility] [address] [place], [address] Platelets (Bld) [#/Vol] 260 10*3/uL Normal 150-450 [facility] Comment on above: Order Comment: 313.2 Performed By: #### L [id number], L101.9900, L100.0500 #### [facility] [address] [place], [address] RBC (Bld) [#/Vol] 4.19 10*6/uL Low 4.6-6.2 [facility] Comment on above: Order Comment: 313.2 Performed By: #### L 501.6710, L101.9900, L100.0500 #### [facility] [address] [place], [address] RDW SD 51.5 fl High 35.1-43.9 [facility] Comment on above: Order Comment: 313.2 Performed By: #### L 501.6710, L101.9900, L100.0500 #### [facility] [address] [place], [address] WBC (Bld) [#/Vol] 7.4 10*3/uL Normal 4.4-11.0 [facility] Comment on above: Order Comment: 313.2 Performed By: #### L [id number], L101.9900, L100.0500 #### [facility] [address] [place], [address] BD BONE DENSITY SURVEYon BD BONE DENSITY SURVEY EXAMINATION: BD B ONE DENSITY SURVEY 07/01/2024 11:31 AM CLINICAL HISTORY: sacral insufficiency ASSOCIATED DIAGNOSIS: Sacral insufficiency fracture, initial encounter ADDITIONAL CLINICAL INFORMATION:Indicatio ns: History of Fracture (Adult) TREATMENTS: ORDERING PROVIDER: OTIS MEJIA TECHNOLOGISTS NOTE: TECHNIQUE: Quantitative digital radiography for DEXA bone mineral assessment was performed using the dotCloudigKaymu densitometer. Following are the results for your patient. The T-score describes the number of standard deviations above or below the mean the patient's bone mineral density is in comparison to a reference population of young adults. FINDINGS: T score is -3.9 for the bone mineral density of 0.498 g/cm2 for the left femoral neck. T score is -4.6 for the bone mineral density of 0.398 g/cm2 for the right femoral neck. T score is -4.2 for the bone mineral density of 0.480 g/cm2 for the total left hip. T score is -4.6 for the bone mineral density of 0.424 g/cm2 for the total right hip. T score is 2.6 for the bone mineral density of 1.107 g/cm2 for the left radius 33 %. IMPRESSION: 1. The lowest measured bone mineral density site is the right femoral neck and total right hip and is osteoporosis based on its T score of -4.6. The fracture risk is high. 2. The FRAX model estimates the ten year probability of an osteoporotic related fracture to be 46.7 % and the ten year probability of a hip fracture to be 27.3 %, based on the bone mineral density of the bilateral femoral necks and history of adult fracture. DEFINITIONS: Guidelines for DXA interpretation from the National Osteoporosis Foundation: 1) Consider FDA-approved osteoporosis therapies if: A. Patient has osteoporosis by WHO criteria (T-score at hip or spine less than -2.5 or less). B. Patient has low bone mass (T-score at hip or spine between -2.4 and -1.1) and a high predicted probability of fracture (10-year probability > 3% for hip fracture or > 20% for any major osteoporotic fracture) as estimated by the FRAX model (see below). 2) FDA-approved pharmacologic therapies include bisphosphonates, calcitonin, parathyroid hormone, Raloxifene and estrogens. 3) Consider evaluation for causes of secondary osteoporosis in appropriate clinical settings. 4) Patients taking medication for osteoporosis should have bone density re-evaluation after 2 years or when medically appropriate. 5) These guidelines are based on cost-effectiveness analysis, and may not apply to the individual clinical circumstances. FRAX statistical model: Developed by the WHO, available online (www.shef.ac.uk/FRAX via a link on the [employer] screen. The model calculates the 10-yr probability of hip fracture or any major osteoporotic fracture (vertebral, hip, forearm, or humerus fracture), using clinical populations, and applies only to previously-untreated patients. (FRAX-friendly) T-scores, as calculated using the [employer] link, should be used in the model. Definitions: Osteoporosis: by World Health Organization (WHO) criteria, defined as a T-score equal to or less than -2.5 at the hip or spine. Osteoporosis can be diagnoses by the BMD alone in menopausal and postmenopausal women and in men 50 years and older. Low bone mass: (osteopenia): T-score between -1.0 and -2.0. Low bone mass does not necessarily imply a high fracture risk. To assess the significance of low bone mass, it is necessary to consider the clinical context. The FRAX model (see below) allows estimation of 10-year absolute fracture risk for individual patients based on clinical criteria. T-score: difference, in standard deviation units, between the patient's bone density and the mean density of a reference population of healthy, young adults. T-scores are appropriate for diagnosis of osteoporosis in menopausal and postmenopausal women and in men 50 years and older. Z-score: the difference, in standard deviations units, between the patient's bone density and the mean density of a reference population of age and sex-matched, healthy adults. Z-scores are used to assess bone mineral density in pre-menopausal women and in men younger than 50 years. A Z-score less than -2.0 means that the bone mineral density is below the expected range for age. Normal [facility] Urine Cultureon 06-17-2024 [facility] Pseudomonas aeruginosa [place] Count 80,000-100,000 Pseudomonas aeruginosa: REACTION Cefepime Islt HARINDER 2 S Ciprofloxacin Islt HARINDER 1 S Imipenem Islt HARINDER 1 S levoFLOXacin Islt HARINDER 4 I Pip+Tazo Islt HARINDER <=4 S Tobramycin Islt HARINDER 2 S Normal [facility] Comment on above: Performed By: #### L 500.2500, L100.0500 #### [facility] [address] [place], [address] 36on 06-16-2024 36 Scheduled appointment Normal [facility] 36 Doug is calling in again wanting to rescheduled they can be reached at the office anytime before 3pm. Please advise and thank you Normal [facility] Addendum Noteon 06-16-2024 Phlebotomist Lab Assistant Authentication Interface Message Text Addended by: FAISAL SIMEON on: 06/16/2024 09:13 PM Modules accepted: Level of Service Normal [facility] 36on 06-15-2024 36 LM for Doug to call the office to discuss the pt Normal [facility] 36 Name of caller: Dax banks Contact phone number: [phone] Relationship to Patient: [facility] Provider: chepe Practice: pain management Chief Complaint/Reason for Call: doug is calling in wanting to speak to the main office. Please advise and thank you Best time of day caller can be reached: any Patient advised that office/PCP has 24-48 business hours to return their call: Yes Normal [facility] Urinalysis, Completeon 06-15 RBC 25-50 SEEN Normal 0-5 [facility] Comment on above: Order Comment: 313.2 Performed By: #### L 500.2500, L100.0500 #### [facility] [address] [place], [address] BACTERIA 2+ /hpf Normal None Seen [facility] Comment on above: Order Comment: 313.2 Performed By: #### L 500.2500, L100.0500 #### [facility] [address] [place], [address] WBC 25-50 SEEN Normal [address] [place] [address] Comment on above: Order Comment: 313.2 Performed By: #### L 500.2500, L100.0500 #### [facility] [address] [place], [address] EPI,SQUAMOUS 0 SEEN Normal [address] Comment on above: Order Comment: 313.2 Performed By: #### L 500.2500, L100.0500 #### [facility] [address] [place], [address] Mucus Ql (Urine sed) 0 SEEN Normal [facility] Comment on above: Order Comment: 313.2 Performed By: #### L 500.2500, L100.0500 #### [facility] [address] [place], [address] Telephone Encounteron 2023 Phlebotomist Lab Assistant Authentication Interface Message Text RTC to pt, left voice mail. Vladimir Asher [facility] Crime Scene Evidence Technician [phone] Normal [facility] Patient Instructionson 06-13 Phlebotomist Lab Assistant Authentication Interface Message Text -Continue PT/OT -Bowel care: schedule bowel care once/day (either after breakfast or dinner) - using suppository and manual stimulation over commode chair will be more helpful than over bed . - Continue skin care - Follow [facility] service consult( we requested today ) for benefits eligibility - Bladder: We ordered today Urodynamic study for your bladder evaluation (to see your bladder status post spinal cord injury) Normal [facility] Progress Noteson 06-13-2024 Phlebotomist Lab Assistant Authentication Interface Message Text Patient was identified by name and date of . Evelio Grey Normal [facility] Progress Noteson 06-12-2024 Phlebotomist Lab Assistant Authentication Interface Message Text SPINAL CORD INJURY CLINIC Visit date: 06/13/2024 PCP: No primary care provider on file. CC: Comprehensive follow up of spinal cord injury and resultant complications HPI: Name: Anmol Reynolds Age: [age] year old Sex: male 06/13/2024 SCI Data Injury Date 10/05/2021 Injury Etiology Non-traumatic NLI T11 AIS A Patient is a 63 yo with h/o paraplegia following spinal surgery ~2 yrs ago in [place] . In 2019, pt had his first back surgery performed by [facility] which was an interbody fusion. 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 At that point, the hospital took the hardware out and did not replace it with the goal of treating the infection. 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 After the infection was treated, [facility] extended his fusion, decompressed the back, and replaced all hardware. At that time he lost all motor and sensation to his lower extremities. He was independent uptill december 2021 till his last spine surgery two year ago Patient was accompanied by brother . The patient gave permission to discuss their medical information, including PHI, in their presence. Since 2021 he is in care home and he changes 5 care home so far. Currently SNF in [facility]. He has Ureter stent - recently at [facility] Medication, PMHx/PSHx, Fam Hx, Allergy, Problem List, Immunization reconciliation completed Current Outpatient Medications Medication Sig Dispense Refill Potassium Chloride 10 % SOLN nortriptyline (PAMELOR) 50 MG capsule 1 cap(s) orally once daily at bedtime tamsulosin (FLOMAX) 0.4 MG capsule Hyoscyamine Sulfate SL 0.[address] 0.125 mg under the tongue every 8 hours as needed. duloxetine (CYMBALTA) 60 MG capsule ferrous sulfate 325 (65 Fe) MG tablet Take 325 mg by mouth daily (with breakfast). HYDROmorphone (DILAUDID) 4 MG tablet imipenem-cilastatin (PRIMAXIN) 250 MG injection mirtazapine (REMERON) 7.5 MG tablet Multiple Vitamin (multivitamins) capsule Take 1 Capsule by mouth daily. zinc sulfate (ZINCATE) 220 (50 Zn) MG capsule Take 220 mg by mouth daily. oxycodone (ROXICODONE) 15 MG immediate release tablet pregabalin (LYRICA) 200 MG capsule Take 200 mg by mouth 3 times daily. insulin lispro (HumaLOG) 100 UNIT/ML injection Inject 0-28 Units under the skin. insulin glargine (LANTUS SOLOSTAR/BASAGLAR KWIKPEN) 100 UNIT/ML pen Inject 45 Units under the skin. cyclobenzaprine (FLEXERIL) 10 MG tablet No current facility-administered medications for this visit. No Known Allergies No past medical history on file. No past surgical history on file. 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 Dependent for transfer. Able to manual wheelchair independently SCI REVIEW OF SYSTEMS BOWEL MANAGEMENT Management: No specific management, in diaper Issues: BLADDER MANAGEMENT Management: Santana catheter Issues: Urethral stent for hydronephrosis. Multiple UTI. On flomax. Catheter trauma SEXUALITY Not discussed this visit Active: Issues: SPASTICITY No spasticity or spasms reported Severity/Freq: not severe Impair Function: not Management: flexeril SKIN Prior issues: Sacral area (stage 4), legs and feet early Current issues: No issue CARDIOVASCULAR AD Details: Nil Orthostatic: No issue H/o VTE: No PULMONARY MANAGEMENT Pulm Toilet: NA Sleep Apnea: No Issues, no snoring CARDIOMETABOLIC MANAGEMENT Wt loss/gain: Weight gain 40Ib since last year PAIN/MSK Neuropathic: Both legs on pregabalin 200mg TID MSK Pain: No issues Function/QoL: Affected BONE HEALTH H/o Fx/HO: no history since paraplegic Osteoporosis: - Dexa ordered Psychiatric: ongoing depression or anxiety and managed with medications All other systems reviewed and are negative. OBJECTIVE Labs/Imaging/Consults Reviewed DXA: ordered by Spine team Renal Imaging: CT abdomen UDS/CMG: TMC: NA Labs: CBC No lab values to display. BMP (last 3 years, up to 8 values) 05/02/2023 04/28/2023 04/27/2023 04/26/2023 04/25/2023 04/23/2023 01/23/2022 01/22/2022 12:56 PM 4:12 AM 1:04 AM 5:40 AM 5:45 AM 2:52 PM 6:33 AM 1:42 AM Na 138 137 137 137 135 138 133 133 Cl 105 102 104 103 102 103 99 99 CO2 24 25 23 24 23 26 25 25 Glu 128 137 181 186 97 134 196 161 BUN 13 10 9 11 15 10 6 9 Cr 0.53 0.54 0.54 0.48 0.62 0.64 0.36 0.36 Ca 8.8 8.6 8.6 8.6 8.5 8.6 8.1 8.2 LFT's (last 3 years, up to 8 values) 04/23/2023 01/06/2022 12/04/2021 11/25/2021 09/06/2021 09/05/2021 09/04/2021 09/04/2021 2:52 PM 3:05 AM 12:21 PM 4:00 AM 3:54 AM 6:05 AM 6:00 PM 5:43 AM T Bili 0.6 0.3 0.4 0.6 0.4 0.6 0.5 0.4 LIPIDS No lab values to display. Lab Results Component Value Date HBA1C 6.5 (H) 01/23/2022 (more content not included)... Normal [facility] CBC-Complete Blood Cnt No Di ffon 05-30-2024 Erythrocyte distribution width (RBC) [Ratio] 15.4 % High 11.6-14.6 [facility] Comment on above: Order Comment: 313.2 Performed By: #### L 501.6710, L101.9900, L100.0500 #### [facility] [address] [place], [address] Hematocrit (Bld) [Volume fraction] 36.7 % Low 40-54 [facility] Comment on above: Order Comment: 313.2 Performed By: #### L 501.6710, L101.9900, L100.0500 #### [facility] [address] [place], [address] Hemoglobin (Bld) [Mass/Vol] 12.0 g/dL Low 13.0-16.5 [facility] Comment on above: Order Comment: 313.2 Performed By: #### L 501.6710, L101.9900, L100.0500 #### [facility] [address] [place], [address] MCH (RBC) [Entitic mass] 30.5 pg Normal 27.0-32.0 [facility] Comment on above: Order Comment: 313.2 Performed By: #### L 501.6710, L101.9900, L100.0500 #### [facility] [address] [place], [address] MCHC (RBC) [Mass/Vol] 32.7 g/dL Normal 32-36 [facility] Comment on above: Order Comment: 313.2 Performed By: #### L 501.6710, L101.9900, L100.0500 #### [facility] [address] [place], [address] MCV (RBC) [Entitic vol] 93.1 fL Normal 80-[address] [facility] Comment on above: Order Comment: 313.2 Performed By: #### L 501.6710, L101.9900, L100.0500 #### [facility] [address] [place], [address] Platelet mean volume (Bld) [Entitic vol] 11.1 fL Normal 6.2-12.0 [facility] Comment on above: Order Comment: 313.2 Performed By: #### L 501.6710, L101.9900, L100.0500 #### [facility] [address] [place], [address] Platelets (Bld) [#/Vol] 219 10*3/uL Normal 150-450 [facility] Comment on above: Order Comment: 313.2 Performed By: #### L 501.6710, L101.9900, L100.0500 #### [facility] [address] [place], [address] RBC (Bld) [#/Vol] 3.94 10*6/uL Low 4.6-6.2 [facility] Comment on above: Order Comment: 313.2 Performed By: #### L 501.6710, L101.9900, L100.0500 #### [facility] [address] [place], [address] RDW SD 53.4 fl High 35.1-43.9 [facility] Comment on above: Order Comment: 313.2 Performed By: #### L 501.6710, L101.9900, L100.0500 #### [facility] [address] [place], [address] WBC (Bld) [#/Vol] 5.9 10*3/uL Normal 4.4-11.0 [facility] Comment on above: Order Comment: 313.2 Performed By: #### L 501.6710, L101.9900, L100.0500 #### [facility] [address] [place], [address] Comprehensive Metabolic Prof [facility] 05-30-2024 Albumin [Mass/Vol] 2.6 g/dL Low 3.2-5.0 [facility] Comment on above: Order Comment: 313.2 Performed By: #### L 501.6710, L101.9900, L100.0500 #### [facility] [address] [place], [address] Albumin/Globulin [Mass ratio] 0.6 {ratio} Low 0.9-2.4 [facility] Comment on above: Order Comment: 313.2 Performed By: #### L 501.6710, L101.9900, L100.0500 #### [facility] [address] [place], [address] ALK P 178 U/L High 45-117 [facility] Comment on above: Order Comment: 313.2 Performed By: #### L 501.6710, L101.9900, L100.0500 #### [facility] [address] [place], [address] ALT [Catalytic activity/Vol] 24 U/L Normal 16-61 [facility] Comment on above: Order Comment: 313.2 Performed By: #### L 501.6710, L101.9900, L100.0500 #### [facility] [address] [place], [address] AST [Catalytic activity/Vol] 19 U/L Normal 15-37 [facility] Comment on above: Order Comment: 313.2 Performed By: #### L 501.6710, L101.9900, L100.0500 #### [facility] [address] [place], [address] Bilirubin [Mass/Vol] 0.60 mg/dL Normal 0.20-1.00 [facility] Comment on above: Order Comment: 313.2 Result Comment: For patients on eltrombopag therapy, use of Dimension Fluker TBIL is not recommended. Performed By: #### L 501.6710, L101.9900, L100.0500 #### [facility] [address] [place], [address] BUN/CRE 15.9 RATIO Normal 10-20 [facility] Comment on above: Order Comment: 313.2 Performed By: #### L 501.6710, L101.9900, L100.0500 #### [facility] [address] [place], [address] CA,Total 8.6 mg/dL Normal 8.5-10.1 [facility] Comment on above: Order Comment: 313.2 Performed By: #### L 501.6710, L101.9900, L100.0500 #### [facility] [address] [place], [address] Chloride [Moles/Vol] 108 mmol/L High 98-107 [facility] Comment on above: Order Comment: 313.2 Performed By: #### L 501.6710, L101.9900, L100.0500 #### [facility] [address] [place], [address] CO2 [Moles/Vol] 23.0 mmol/L Normal 21.0-32.0 [facility] Comment on above: Order Comment: 313.2 Performed By: #### L 501.6710, L101.9900, L100.0500 #### [facility] [address] [place], [address] Creatinine [Mass/Vol] 0.50 mg/dL Low 0.70-1.30 [facility] Comment on above: Order Comment: 313.2 Result Comment: The validity of the calculated GFR GFRAA in patients over 70 years has not been determined. Clinical correlation is essential. Performed By: #### L 501.6710, L101.9900, L100.0500 #### [facility] [address] [place], [address] EST GFR - AA 214 mL/min Normal >60 [facility] Comment on above: Order Comment: 313.2 Result Comment: Afri can Iranian GFR Calc Performed By: #### L 501.6710, L101.9900, L100.0500 #### [facility] [address] [place], [address] GAP 6 Normal 5-15 [facility] Comment on above: Order Comment: 313.2 Performed By: #### L 501.6710, L101.9900, L100.0500 #### [facility] [address] [place], [address] GFR/1.73 sq M.predicted among non-blacks MDRD (S/P/Bld) [Vol rate/Area] 177 mL/min/{1.73_m2} Normal >60 [facility] Comment on above: Order Comment: 313.2 Result Comment: Non- GFR Calc Performed By: #### L 501.6710, L101.9900, L100.0500 #### [facility] [address] [place], [address] Globulin (S) [Mass/Vol] 4.2 g/dL Normal 2.2-4.2 [facility] Comment on above: Order Comment: 313.2 Performed By: #### L 501.6710, L101.9900, L100.0500 #### [facility] [address] [place], [address] Glucose [Mass/Vol] 185 mg/dL High 74-106 [facility] Comment on above: Order Comment: 313.2 Result Comment: Fast ing Glucose result greater than or equal to 126 mg/dL suggests DIABETES MELLITUS per A.D.A. criteria. Performed By: #### L 501.6710, L101.9900, L100.0500 #### [facility] [address] [place], [address] Potassium [Moles/Vol] 3.8 mmol/L Normal 3.5-5.1 [facility] Comment on above: Order Comment: 313.2 Performed By: #### L 501.6710, L101.9900, L100.0500 #### [facility] [address] [place], [address] Sodium [Moles/Vol] 137 mmol/L Normal 136-145 [facility] Comment on above: Order Comment: 313.2 Performed By: #### L 501.6710, L101.9900, L100.0500 #### [facility] [address] [place], [address] T PROT 6.8 g/dL Normal 6.4-8.2 [facility] Comment on above: Order Comment: 313.2 Performed By: #### L 501.6710, L101.9900, L100.0500 #### [facility] [address] [place], [address] Urea nitrogen [Mass/Vol] 8 mg/dL Normal 7-18 [facility] Comment on above: Order Comment: 313.2 Performed By: #### L 501.6710, L101.9900, L100.0500 #### [facility] [address] [place], [address] Culture, Blood (WB)on 2023 CUB 313-2 SEND RESULTS TO [facility] INFECTIOUS DIESASE FAX [phone]. GRAM STAIN = GRAM POSITIVE COCCI IN CLUSTERS Culture, Blood (WB) RESULTS CALLED TO BIRDIE 05/17/24 Morenita López. REPORT READ BACK BY SAME. Culture, Blood (WB) IDENTIFICATION: STAPHYLOCOCCUS CAPITIS BASED ON SUSCEPTIBILITY TO OXACILLIN THIS ISOLATE WOULD BE SUSCEPTIBLE TO: *PENICILLINASE-STABLE PENICILLINS, SUCH : CLOXACILLIN, DICLOXACILLIN, NAFCILLIN *BETA-LACTAM COMBINATION AGENTS, SUCH : AMOXICILLIN-CLAVULANI C ACID, AMPICILLIN-SULBACTAM, PIPERACILLIN-TAZOBACT AM *ORAL CEPHEMS, SUCH : CEFACLOR, CEFDINIR, CEFPODOXIME, CEFPROZIL, CEFUROXIME, CEPHALEXIN, LORACARBEF *PARENTERAL CEPHEMS, SUCH : CEFAZOLIN, CEFEPIME, CEFOTAXIME, CEFOTETAN, CEFTAROLINE, CEFTIZOXIME, CEFTRIAXONE, CEFUROXIME *CARBAPENEMS, SUCH : DORIPENEM, ERTAPENEM, IMIPENEM, MEROPENEM MOST ISOLATES OF STAPHYLOCOCCUS SP. PRODUCE A BETA-LACTAMASE ENZYME RENDERING THEM RESISTANT TO PENICILLIN. PLEASE CONTACT THE LABORATORY IF PENICILLIN IS BEING CONSIDERED FOR THERAPY. Culture, Blood (WB) [facility] ORIGINAL REPORT ON FILE IN LAB CONTAINS ADDITIONAL TEST SITE INFORMATION. Culture, Blood (WB) Culture, Blood (WB) Staphylococcus capitis Amount Growth Growth Staphylococcus capitis: REACTION Ciprofloxacin Islt HARINDER Clindamycin Islt HARINDER S Erythromycin Islt HARINDER S Gentamicin Islt HARINDER S levoFLOXacin Islt HARINDER I Linezolid Islt HARINDER S Moxifloxacin Islt HARINDER S Oxacillin Susc Islt S rifAMPin Islt HARINDER S Tetracycline Islt HARINDER S TMP SMX Islt HARINDER S Vancomycin Islt HARINDER S Normal [facility] Comment on above: Performed By: #### L 501.6710, L101.9900, L100.0500 #### [facility] [address] [place], [place], [address] Bacteria identified Cx Nom ( Bld)on 05-22-2024 Interpretation and review of laboratory results Normal [facility] Blood Collection Site: Left Arm [facility] Blood Collection Site: Left Antecubital [facility] CARECOORDon 05-22-2024 CARECOORD Called Carlos Flower's dispatch, [facility] is around [address]. [facility] CARECOORD CARE COORDINATION DAILY NOTE/UPDATE Discharge Plan: Neno Delvalle This TCC was tasked to follow this patient through the weekend assisting with discharge planning. Chart was reviewed. Met with patient at bedside to confirm if he would like to return to [facility]. Patient agreeable to return. Messaged attending and infectious disease to see if patient is able to discharge today. Discharge order placed. Scheduled discharge transportation in [employer], pickling grader time confirmed for 05/22 at 1600. Bedside nurse notified of transport and will update patient and family of plan Facility notified of transportation time and discharge documents including After Visit Summary, MAR, LABS, and Vitals were uploaded into [employer] for review. Normal [facility] CBC (HEMOGRAM)on 05-22-2024 Erythrocyte distribution width (RBC) [Ratio] 15.1 % High 11.5-15.0 [facility] Comment on above: Performed By: #### L [id number] #### [employer] Manager: BIANCA NICHOLS ([phone]) [address] Hematocrit (Bld) [Volume fraction] 38.4 % Low 40.0-52.0 [facility] Comment on above: Performed By: #### L [id number] #### [employer] Maintenance Manager: BIANCA NICHOLS ([id number]) [address] Hemoglobin (Bld) [Mass/Vol] 12.8 g/dL Low 13.0-18.0 [facility] Comment on above: Performed By: #### L [id number] #### [employer] Maintenance Manager: BIANCA NICHOLS ([phone]) [facility]) [address] [place] [address] MCH (RBC) [Entitic mass] 30.4 pg Normal 26.0-34.0 [facility] Comment on above: Performed By: #### L [id number] #### [employer] Manager: BIANCA NICHOLS ([phone]) [address] MCHC 33.3 % Normal 30.5-36.0 [facility] Comment on above: Performed By: #### L [id number] #### [employer] Maintenance Manager: BIANCA NICHOLS ([id number]) [facility] ([facility]) [address] [place] [address] MCV (RBC) [Entitic vol] 91.2 fL Normal 77.0-99.0 [facility] Comment on above: Performed By: #### L [id number] #### [employer] Maintenance Manager: BIANCA NICHOLS ([id number]) [facility] ([facility]) [address] [place] [address] Platelet mean volume (Bld) [Entitic vol] 10.6 fL Normal 9.0-12.7 [facility] Comment on above: Performed By: #### L [id number] #### [employer] Maintenance Manager: BIANCA NICHOLS ([id number]) [facility] ([facility]) [address] [place] [address] Platelets (Bld) [#/Vol] 209 10*3/uL Normal 140-440 [facility] Comment on above: Performed By: #### L [id number] #### [employer] Maintenance Manager: BIANCA NICHOLS ([phone]) [facility] ([facility]) [address] [place] [address] RBC (Bld) [#/Vol] 4.21 10*6/uL Low 4.40-5.90 [facility] Comment on above: Performed By: #### L [id number] #### [employer] Maintenance Manager: BIANCA NICHOLS ([phone]) [facility] ([facility]) [address] [place] [address] WBC (Bld) [#/Vol] 6.4 10*3/uL Normal 3.6-10.7 [facility] Comment on above: Performed By: #### L [id number] #### [employer] Maintenance Manager: BIANCA NICHOLS ([phone]) [facility] ([facility]) [address] [place] [address] CBC panel Auto (Bld)on 05-22 Erythrocyte distribution width (RBC) [Ratio] 15.1 % High 11.5 - 15.0 % [facility] Hematocrit (Bld) [Volume fraction] 38.4 % Low 40.0 - 52.0 % [facility] Hemoglobin (Bld) [Mass/Vol] 12.8 g/dL Low 13.0 - 18.0 g/dL [facility] Interpretation and review of laboratory results Abnormal [facility] MCH (RBC) [Entitic mass] 30.4 pg 26. 0 - 34.0 pg [facility] MCHC (RBC) [Mass/Vol] 33.3 % 30.5 - 36.0 % [facility] MCV (RBC) [Entitic vol] 91.2 fL 77.0 - 99.0 fL [facility] Platelet mean volume (Bld) [Entitic vol] 10.6 fL 9.0 - 12.7 fL [facility] Platelets (Bld) [#/Vol] 209 10*3/uL 140 - 440 10*3/uL [facility] RBC (Bld) [#/Vol] 4.21 10*6/uL Low 4.40 - 5.9 0 10*6/uL [facility] WBC (Bld) [#/Vol] 6.4 10*3/uL 3.6 - 10.7 10*3/uL [facility] COMPREHENSIVE METABOLIC PANE Antonio 05-22-2024 Albumin [Mass/Vol] 3.1 g/dL Low 3.5-5.0 [facility] Comment on above: Performed By: #### L [id number] #### [employer] Maintenance Manager: BIANCA NICHOLS ([phone]) [facility] ([facility]) [address] [place] [address] ALP [Catalytic activity/Vol] 151 U/L High 38-126 [facility] Comment on above: Performed By: #### L [id number] #### [employer] Maintenance Manager: BIANCA NICHOLS ([phone]) [facility]) [address] [place] [address] ALT [Catalytic activity/Vol] 22 U/L Normal 0-49 [facility] Comment on above: Performed By: #### L [id number] #### [employer] Maintenance Manager: BIANCA NICHOLS ([id number]) [facility] [address] [place] [address] Anion gap [Moles/Vol] 5 mmol/L Normal 3-13 [facility] Comment on above: Performed By: #### L [id number] #### [employer] Maintenance Manager: BIANCA NICHOLS ([phone]) [facility] ([facility]) [address] [place] [address] AST [Catalytic activity/Vol] 25 U/L Normal 15-46 [facility] Comment on above: Performed By: #### L [id number] #### [employer] Maintenance Manager: BIANCA NICHOLS ([id number]) [facility]) [address] [place] [address] Bilirubin [Mass/Vol] 0.6 mg/dL Normal 0.2-1.3 [facility] Comment on above: Performed By: #### L [id number] #### [employer] Maintenance Manager: BIANCA NICHOLS ([phone]) [facility]) [address] [place] [address] Calcium [Mass/Vol] 8.4 mg/dL Normal 8.4-10.4 [facility] Comment on above: Performed By: #### L [id number] #### [employer] Maintenance Manager: BIANCA NICHOLS ([phone]) [facility] ([facility]) [address] [place] [address] [place] Chloride [Moles/Vol] 107 mmol/L Normal 98-107 [facility] Comment on above: Performed By: #### L [id number] #### [employer] Maintenance Manager: BIANCA NICHOLS ([phone]) [facility]) [address] [place] [address] [place] CO2 [Moles/Vol] 22 mmol/L Normal 22-30 [facility] Comment on above: Performed By: #### L [id number] #### [employer] Maintenance Manager: BIANCA NICHOLS ([phone]) [facility]) [address] [place] [address] [place] Creatinine [Mass/Vol] 0.54 mg/dL Low 0.66-1.25 [facility] Comment on above: Performed By: #### L [id number] #### [employer] Maintenance Manager: BIANCA NICHOLS ([phone]) [facility] ([facility]) [address] [place] [address] GLOMERULAR FILTRATION RATE ML/MIN/1.73 SQ M.PREDICTED >90.0 Normal >60.0 [facility] Comment on above: Result Comment: Calc ulation based on the Chronic Kidney Disease Epidemiology Collaboration (CKD-EPI) equation refit without adjustment for race Performed By: #### L [id number] #### [employer] Maintenance Manager: BIANCA NICHOLS ([id number]) [facility]) [address] [place] [address] Glucose [Mass/Vol] 144 mg/dL High 70-100 [facility] Comment on above: Performed By: #### L [id number] #### Auto Fleet Maintenance Manager: BIANCA NICHOLS ([phone]) [facility] ([facility]) [address] [place] [address] Potassium [Moles/Vol] 3.9 mmol/L Normal 3.5-5.1 [facility] Comment on above: Performed By: #### L [id number] #### Auto Fleet Maintenance Manager: BIANCA NICHOLS ([id number]) [facility] [address] [place] [address] Protein [Mass/Vol] 6.3 g/dL Normal 6.3-8.2 [facility] Comment on above: Performed By: #### L [id number] #### Auto Fleet Maintenance Manager: BIANCA NICHOLS ([phone]) [facility] ([facility]) [address] [place] [address] Sodium [Moles/Vol] 135 mmol/L Normal 135-145 [facility] Comment on above: Performed By: #### L [id number] #### [employer] Fleet Maintenance Manager: BIANCA NICHOLS ([phone]) [facility] ([facility]) [address] [place] [address] [place] Urea nitrogen [Mass/Vol] 13 mg/dL Normal 9-20 [facility] Comment on above: Performed By: #### L [id number] #### [employer] Maintenance Manager: BIANCA NICHOLS ([phone]) [facility] ([facility]) [address] [place] [address] Comprehensive metabolic 1998 panelon 05-22-2024 Albumin [Mass/Vol] 3.1 g/dL Low 3.5 - 5.0 g/dL [facility] ALP [Catalytic activity/Vol] 151 U/L High 38 - 126 U/L [facility] ALT [Catalytic activity/Vol] 22 U/L 0 - 49 U/L [facility] Anion gap [Moles/Vol] 5 mmol/L 3 - 13 mmol/L [facility] AST [Catalytic activity/Vol] 25 U/L 15 - 46 U/L [facility] Bilirubin [Mass/Vol] 0.6 mg/dL 0.2 - 1 .3 mg/dL [facility] Calcium [Mass/Vol] 8.4 mg/dL 8.4 - 10. 4 mg/dL [facility] Chloride [Moles/Vol] 107 mmol/L 98 - 10 7 mmol/L [facility] CO2 [Moles/Vol] 22 mmol/L 22 - 30 mmol/L [facility] Creatinine [Mass/Vol] 0.54 mg/dL Low 0.66 - 1.25 mg/dL [facility] GFR/1.73 sq M.predicted (S/P/Bld) [Vol rate/Area] - PINF [facility] Comment on above: Calculation based on the Chronic Kidney Disease Epidemiology Collaboration (CKD-EPI) equation refit without adjustment for race Glucose [Mass/Vol] 144 mg/dL High 70 - 100 mg/dL [facility] Interpretation and review of laboratory results Abnormal [facility] Potassium [Moles/Vol] 3.9 mmol/L 3.5 - 5.1 mmol/L [facility] Protein [Mass/Vol] 6.3 g/dL 6.3 - 8.2 g/dL [facility] Sodium [Moles/Vol] 135 mmol/L 135 - 145 mmol/L [facility] Urea nitrogen [Mass/Vol] 13 mg/dL 9 - 20 mg/dL [facility] IDNon 05-22-2024 IDN Problem: Knowledge Deficit Goal: Patient/family/caregi crystal demonstrates understanding of disease process, treatment plan, medications, and discharge instructions Outcome: Adequate for Discharge Problem: Potential for Compromised Skin Integrity Goal: Skin Integrity is Maintained or Improved Outcome: Adequate for Discharge Goal: Nutritional status is improving Outcome: Adequate for Discharge Problem: Urinary Incontinence Goal: Perineal skin integrity is maintained or improved Outcome: Adequate for Discharge Problem: Pain Goal: My pain/discomfort is manageable Outcome: Adequate for Discharge Problem: Safety Goal: Patient will be injury free during hospitalization Outcome: Adequate for Discharge Goal: I will remain free of falls Outcome: Adequate for Discharge Problem: Daily Care Goal: Daily care needs are met Outcome: Adequate for Discharge Problem: Psychosocial Needs Goal: Demonstrates ability to cope with hospitalization/illne ss Outcome: Adequate for Discharge Goal: Collaborate with me, my family, and caregiver to identify my specific goals Outcome: Adequate for Discharge Problem: Discharge Barriers Goal: My discharge needs are met Outcome: Adequate for Discharge Problem: Problem Interventions Goal: Assess Nutritional Intake Outcome: Adequate for Discharge Normal [facility] - Chemistry and C hemistry - challengeon 05-22-2024 Glucose [Mass/Vol] 177 mg/dL High 70 - 100 mg/dL [facility] Glucose [Mass/Vol] 325 mg/dL High 70 - 100 mg/dL [facility] Glucose [Mass/Vol] 133 mg/dL High 70 - 100 mg/dL [facility] - Microbiology an d Antimicrobial susceptibilityon 05-22-2024 Bacteria identified Cx Nom (Bld) No growth at 5 days [facility] No Panel Informationon 05-22 Interpretation and review of laboratory results Abnormal [facility] Performed by: [facility], [address] [place] [address] CLIA ID: [id number] [facility] Interpretation and review of laboratory results Abnormal [facility] Performed by: [facility], [address] [place] [address] CLIA ID: [id number] [facility] Interpretation and review of laboratory results Abnormal [facility] Performed by: [facility], [address] [place] [address] CLIA ID: [id number] [facility] Nursing Noteon 05-22-2024 Nursing Note Transport arranged for 1600. Belongings packed and paperwork finished. Carlos Montelongo update: 45 minutes. Elly Cormier RN Normal [facility] Nursing Note Santana catheter leaking since last night. Dr. Mahajan paged via secure chat. Catheter to be replaced. Patient informed me that they use a 18 kenyan santana at the care home. A 16 kenyan was previously in. Urology cart was ordered, and a 18 kenyan santana was placed with 500 mL output. Larger balloon, filled with 25 mL. No leaking. Will continue to monitor. Elly Cormier RN Normal [facility] CBC (HEMOGRAM)on 05-21-2024 Erythrocyte distribution width (RBC) [Ratio] 15.0 % Normal 11.5-15.0 [facility] Comment on above: Performed By: #### L [id number] #### Auto Fleet Maintenance Manager: BIANCA NICHOLS ([phone]) [facility]) [address] [place] [address] Hematocrit (Bld) [Volume fraction] 37.5 % Low 40.0-52.0 [facility] Comment on above: Performed By: #### L [id number] #### Auto Fleet Maintenance Manager: BIANCA NICHOLS ([phone]) [facility]) [address] [place] [address] Hemoglobin (Bld) [Mass/Vol] 12.4 g/dL Low 13.0-18.0 [facility] Comment on above: Performed By: #### L [id number] #### Auto Fleet Maintenance Manager: BIANCA NICHOLS ([phone]) [facility]) [address] [place] [address] MCH (RBC) [Entitic mass] 30.7 pg Normal 26.0-34.0 [facility] Comment on above: Performed By: #### L [id number] #### Auto Fleet Maintenance Manager: BIANCA NICHOLS ([phone]) [facility]) [address] [place] [address] MCHC 33.1 % Normal 30.5-36.0 [facility] Comment on above: Performed By: #### L [id number] #### Auto Fleet Maintenance Manager: BIANCA NICHOLS ([phone]) [facility]) [address] [place] [address] MCV (RBC) [Entitic vol] 92.8 fL Normal 77.0-99.0 [facility] Comment on above: Performed By: #### L [id number] #### Auto Fleet Maintenance Manager: BIANCA NICHOLS ([phone]) [facility]) [address] [place] [address] Platelet mean volume (Bld) [Entitic vol] 10.4 fL Normal 9.0-12.7 [facility] Comment on above: Performed By: #### L [id number] #### Auto Fleet Maintenance Manager: BIANCA NICHOLS ([phone]) [facility] ([facility]) [address] [place] [address] Platelets (Bld) [#/Vol] 192 10*3/uL Normal 140-440 [facility] Comment on above: Performed By: #### L [id number] #### Auto Fleet Maintenance Manager: BIANCA NICHOLS ([phone]) [facility] ([facility]) [address] [place] [address] RBC (Bld) [#/Vol] 4.04 10*6/uL Low 4.40-5.90 [facility] Comment on above: Performed By: #### L [id number] #### Auto Fleet Maintenance Manager: BIANCA NICHOLS ([phone]) [facility] [facility] ([facility]) [address] [place] [address] WBC (Bld) [#/Vol] 5.8 10*3/uL Normal 3.6-10.7 [facility] Comment on above: Performed By: #### L [id number] #### Auto Fleet Maintenance Manager: BIANCA NICHOLS ([phone]) [facility] ([facility]) [address] [place] [address] CBC panel Auto (Bld)on 05-21 Erythrocyte distribution width (RBC) [Ratio] 15.0 % 11.5 - 15.0 % [facility] Hematocrit (Bld) [Volume fraction] 37.5 % Low 40.0 - 52.0 % [facility] Hemoglobin (Bld) [Mass/Vol] 12.4 g/dL Low 13.0 - 18.0 g/dL [facility] Interpretation and review of laboratory results Abnormal [facility] MCH (RBC) [Entitic mass] 30.7 pg 26. 0 - 34.0 pg [facility] MCHC (RBC) [Mass/Vol] 33.1 % 30.5 - 36.0 % [facility] MCV (RBC) [Entitic vol] 92.8 fL 77.0 - 99.0 fL [facility] Platelet mean volume (Bld) [Entitic vol] 10.4 fL 9.0 - 12.7 fL [facility] Platelets (Bld) [#/Vol] 192 10*3/uL 140 - 440 10*3/uL [facility] RBC (Bld) [#/Vol] 4.04 10*6/uL Low 4.40 - 5.9 0 10*6/uL [facility] WBC (Bld) [#/Vol] 5.8 10*3/uL 3.6 - 10.7 10*3/uL [facility] COMPREHENSIVE METABOLIC PANE Antonio 05-21-2024 Albumin [Mass/Vol] 3.2 g/dL Low 3.5-5.0 [facility] Comment on above: Performed By: #### L [id number] #### Auto Fleet Maintenance Manager: BIANCA NICHOLS ([phone]) [facility] ([facility]) [address] [place] [address] ALP [Catalytic activity/Vol] 142 U/L High 38-126 [facility] Comment on above: Performed By: #### L [id number] #### Auto Fleet Maintenance Manager: BIANCA NICHOLS ([phone]) [facility] ([facility]) [address] [place] [address] ALT [Catalytic activity/Vol] 21 U/L Normal 0-49 [facility] Comment on above: Performed By: #### L [id number] #### Auto Fleet Maintenance Manager: BIANCA NICHOLS ([phone]) [facility] ([facility]) [address] [place] [address] Anion gap [Moles/Vol] 8 mmol/L Normal 3-13 [facility] Comment on above: Performed By: #### L [id number] #### Auto Fleet Maintenance Manager: BIANCA NICHOLS ([phone]) [facility] ([facility]) [address] [place] [address] AST [Catalytic activity/Vol] 24 U/L Normal 15-46 [facility] Comment on above: Performed By: #### L [id number] #### Auto Fleet Maintenance Manager: BIANCA NICHOLS ([phone]) [facility] ([facility]) [address] [place] [address] [place] Bilirubin [Mass/Vol] 0.5 mg/dL Normal 0.2-1.3 [facility] Comment on above: Performed By: #### L [id number] #### Auto Fleet Maintenance Manager: BIANCA NICHOLS ([phone]) [facility] [address] [place] [address] Calcium [Mass/Vol] 8.5 mg/dL Normal 8.4-10.4 [facility] Comment on above: Performed By: #### L [id number] #### Auto Fleet Maintenance Manager: BIANCA NICHOLS ([phone]) [facility] [address] [place] [address] Chloride [Moles/Vol] 109 mmol/L High 98-107 [facility] Comment on above: Performed By: #### L [id number] #### Auto Fleet Maintenance Manager: BIANCA NICHOLS ([phone]) [facility] [address] [place] [address] CO2 [Moles/Vol] 18 mmol/L Low 22-30 [facility] Comment on above: Performed By: #### L [id number] #### Auto Fleet Maintenance Manager: BIANCA NICHOLS ([phone]) [facility] ([facility]) [address] [place] [address] Creatinine [Mass/Vol] 0.46 mg/dL Low 0.66-1.25 [facility] Comment on above: Performed By: #### L [id number] #### Auto Fleet Maintenance Manager: BIANCA NICHOLS ([phone]) [facility] ([facility]) [address] [place] [address] GLOMERULAR FILTRATION RATE ML/MIN/1.73 SQ M.PREDICTED >90.0 Normal >60.0 [facility] Comment on above: Result Comment: Calc ulation based on the Chronic Kidney Disease Epidemiology Collaboration (CKD-EPI) equation refit without adjustment for race Performed By: #### L [id number] #### Auto Fleet Maintenance Manager: BIANCA NICHOLS ([id number]) [facility] [address] [place] [address] Glucose [Mass/Vol] 157 mg/dL High 70-100 [facility] Comment on above: Performed By: #### L [id number] #### Auto Fleet Maintenance Manager: BIANCA NICHOLS ([phone]) [facility] ([facility]) [address] [place] [address] Potassium [Moles/Vol] 3.9 mmol/L Normal 3.5-5.1 [facility] Comment on above: Performed By: #### L [id number] #### Auto Fleet Maintenance Manager: BIANCA NICHOLS ([phone]) [facility] [address] [place] [address] Protein [Mass/Vol] 6.2 g/dL Low 6.3-8.2 [facility] Comment on above: Performed By: #### L [id number] #### Auto Fleet Maintenance Manager: BIANCA NICHOLS ([phone]) [facility] ([facility]) [address] [place] [address] Sodium [Moles/Vol] 136 mmol/L Normal 135-145 [facility] Comment on above: Performed By: #### L [id number] #### Auto Fleet Maintenance Manager: BIANCA NICHOLS ([phone]) [facility] [address] [place] [address] Urea nitrogen [Mass/Vol] 11 mg/dL Normal 9-20 [facility] Comment on above: Performed By: #### L [id number] #### Auto Fleet Maintenance Manager: BIANCA NICHOLS ([phone]) [facility] ([facility]) [address] [place] [address] Comprehensive metabolic 1998 panelon 05-21-2024 Albumin [Mass/Vol] 3.2 g/dL Low 3.5 - 5.0 g/dL [facility] ALP [Catalytic activity/Vol] 142 U/L High 38 - 126 U/L [facility] ALT [Catalytic activity/Vol] 21 U/L 0 - 49 U/L [facility] Anion gap [Moles/Vol] 8 mmol/L 3 - 13 mmol/L [facility] AST [Catalytic activity/Vol] 24 U/L 15 - 46 U/L [facility] Bilirubin [Mass/Vol] 0.5 mg/dL 0.2 - 1 .3 mg/dL [facility] Calcium [Mass/Vol] 8.5 mg/dL 8.4 - 10. 4 mg/dL [facility] Chloride [Moles/Vol] 109 mmol/L High 98 - 10 7 mmol/L [facility] CO2 [Moles/Vol] 18 mmol/L Low 22 - 30 mmol/L [facility] Creatinine [Mass/Vol] 0.46 mg/dL Low 0.66 - 1.25 mg/dL [facility] GFR/1.73 sq M.predicted (S/P/Bld) [Vol rate/Area] - PINF [facility] Comment on above: Calculation based on the Chronic Kidney Disease Epidemiology Collaboration (CKD-EPI) equation refit without adjustment for race Glucose [Mass/Vol] 157 mg/dL High 70 - 100 mg/dL [facility] Interpretation and review of laboratory results Abnormal [facility] Potassium [Moles/Vol] 3.9 mmol/L 3.5 - 5.1 mmol/L [facility] Protein [Mass/Vol] 6.2 g/dL Low 6.3 - 8.2 g/dL [facility] Sodium [Moles/Vol] 136 mmol/L 135 - 145 mmol/L [facility] Urea nitrogen [Mass/Vol] 11 mg/dL 9 - 20 mg/dL [facility] IDNon 05-21-2024 IDN Problem: Knowledge Deficit Goal: Patient/family/caregi crystal demonstrates understanding of disease process, treatment plan, medications, and discharge instructions Outcome: Progressing Problem: Potential for Compromised Skin Integrity Goal: Skin Integrity is Maintained or Improved Outcome: Progressing Goal: Nutritional status is improving Outcome: Progressing Problem: Urinary Incontinence Goal: Perineal skin integrity is maintained or improved Outcome: Progressing Problem: Pain Goal: My pain/discomfort is manageable Outcome: Progressing Problem: Safety Goal: Patient will be injury free during hospitalization Outcome: Progressing Goal: I will remain free of falls Outcome: Progressing Problem: Daily Care Goal: Daily care needs are met Outcome: Progressing Problem: Psychosocial Needs Goal: Demonstrates ability to cope with hospitalization/illne ss Outcome: Progressing Goal: Collaborate with me, my family, and caregiver to identify my specific goals Outcome: Progressing Problem: Discharge Barriers Goal: My discharge needs are met Outcome: Progressing Problem: Problem Interventions Goal: Assess Nutritional Intake Outcome: Progressing Normal [facility] Laboratory - Chemistry and C hemistry - challengeon 05-21-2024 Glucose [Mass/Vol] 261 mg/dL High 70 - 100 mg/dL [facility] Glucose [Mass/Vol] 231 mg/dL High 70 - 100 mg/dL [facility] [place] Glucose [Mass/Vol] 162 mg/dL High 70 - 100 mg/dL [facility] Glucose [Mass/Vol] 154 mg/dL High 70 - 100 mg/dL [facility] No Panel Informationon 05-21 Interpretation and review of laboratory results Abnormal [facility] Performed by: [facility], [address] [place] [address] CLIA ID: [id number] [facility] Interpretation and review of laboratory results Abnormal [facility] Performed by: [facility], [address] [place] [address] CLIA ID: [id number] [facility] Interpretation and review of laboratory results Abnormal [facility] Performed by: [facility], [address] [place] [address] CLIA ID: [id number] [facility] Interpretation and review of laboratory results Abnormal [facility] Performed by: [facility], [address] [place] [address] CLIA ID: [id number] [facility] Bacteria identified Cx Nom ( U)Ordered By: Codie Tang on 05-20-2024 Interpretation and review of laboratory results Abnormal [facility] Bacteria identified Cx Nom ( U)on 05-20-2024 Interpretation and review of laboratory results Abnormal [facility] CARECOORDon 05-20-2024 CAR[facility]OORD Chart reviewed. ID following for CoNS postive BC and proteus UTI. Repeat BC pending. +iv cefepime, final course not yet determined. [facility] Will return skilled only if needed, otherwise he can return under his medicaid benefit [facility] message. TCC to continue to follow. Normal [facility] CBC (HEMOGRAM)on 05-20-2024 Erythrocyte distribution width (RBC) [Ratio] 15.1 % High 11.5-15.0 [facility] Comment on above: Performed By: #### L [id number] ####Auto Fleet Maintenance Manager: BIANCA NICHOLS ([phone])[facility] ([facility])[address] [place] [address] Hematocrit (Bld) [Volume fraction] 37.0 % Low 40.0-52.0 [facility] Comment on above: Performed By: #### L [id number] ####Auto Fleet Maintenance Manager: BIANCA NICHOLS ([phone])[facility])[address] [place] [address] Hemoglobin (Bld) [Mass/Vol] 12.2 g/dL Low 13.0-18.0 [facility] Comment on above: Performed By: #### L [id number] ####Auto Fleet Maintenance Manager: BIANCA NICHOLS ([phone])[facility])[address] [place] [address] MCH (RBC) [Entitic mass] 29.9 pg Normal 26.0-34.0 [facility] Comment on above: Performed By: #### L [id number] ####Auto Fleet Maintenance Manager: BIANCA NICHOLS ([id number])[facility] ([facility])[address] [place] [address] MCHC 33.0 % Normal 30.5-36.0 [facility] Comment on above: Performed By: #### L [id number] ####Auto Fleet Maintenance Manager: BIANCA NICHOLS ([phone])[facility])[address] [place] [address] MCV (RBC) [Entitic vol] 90.7 fL Normal 77.0-99.0 [facility] Comment on above: Performed By: #### L [id number] ####Auto Fleet Maintenance Manager: BIANCA NICHOLS ([phone])[facility])[address] [place] [address] Platelet mean volume (Bld) [Entitic vol] 10.4 fL Normal 9.0-12.7 [facility] Comment on above: Performed By: #### L [id number] ####Auto Fleet Maintenance Manager: BIANCA NICHOLS ([phone])[facility] ([address] Platelets (Bld) [#/Vol] 197 10*3/uL Normal 140-440 [facility] Comment on above: Performed By: #### L [id number] ####Auto Fleet Maintenance Manager: BIANCA NICHOLS ([phone])[facility])[address] [place] [address] RBC (Bld) [#/Vol] 4.08 10*6/uL Low 4.40-5.90 [facility] Comment on above: Performed By: #### L [id number] ####Auto Fleet Maintenance Manager: BIANCA NICHOLS ([phone])[address] WBC (Bld) [#/Vol] 5.5 10*3/uL Normal 3.6-10.7 [facility] Comment on above: Performed By: #### L [id number] ####Auto Fleet Maintenance Manager: BIANCA NICHOLS ([phone])[facility] ([facility])[address] [place] [address] CBC panel Auto (Bld)on 05-20 Erythrocyte distribution width (RBC) [Ratio] 15.1 % High 11.5 - 15.0 % [facility] Hematocrit (Bld) [Volume fraction] 37.0 % Low 40.0 - 52.0 % [facility] Hemoglobin (Bld) [Mass/Vol] 12.2 g/dL Low 13.0 - 18.0 g/dL [facility] Interpretation and review of laboratory results Abnormal [facility] MCH (RBC) [Entitic mass] 29.9 pg 26. 0 - 34.0 pg [facility] MCHC (RBC) [Mass/Vol] 33.0 % 30.5 - 36.0 % [facility] MCV (RBC) [Entitic vol] 90.7 fL 77.0 - 99.0 fL [facility] Platelet mean volume (Bld) [Entitic vol] 10.4 fL 9.0 - 12.7 fL [facility] Platelets (Bld) [#/Vol] 197 10*3/uL 140 - 440 10*3/uL [facility] RBC (Bld) [#/Vol] 4.08 10*6/uL Low 4.40 - 5.9 0 10*6/uL [facility] WBC (Bld) [#/Vol] 5.5 10*3/uL 3.6 - 10.7 10*3/uL [facility] COMPREHENSIVE METABOLIC PANE Antonio 05-20-2024 Albumin [Mass/Vol] 3.2 g/dL Low 3.5-5.0 [facility] Comment on above: Performed By: #### L [id number] #### Auto Fleet Maintenance Manager: BIANCA NICHOLS ([phone]) [facility] ([facility]) [address] [place] [address] ALP [Catalytic activity/Vol] 153 U/L High 38-126 [facility] Comment on above: Performed By: #### L [id number] #### Auto Fleet Maintenance Manager: BIANCA NICHOLS ([phone]) [facility] ([facility]) [address] [place] [address] ALT [Catalytic activity/Vol] 22 U/L Normal 0-49 [facility] Comment on above: Performed By: #### L [id number] #### Auto Fleet Maintenance Manager: BIANCA NICHOLS ([id number]) [facility] ([facility]) [address] [place] [address] Anion gap [Moles/Vol] 4 mmol/L Normal 3-13 [facility] Comment on above: Performed By: #### L [id number] #### Auto Fleet Maintenance Manager: BIANCA NICHOLS ([id number]) [facility] ([facility]) [address] [place] [address] AST [Catalytic activity/Vol] 23 U/L Normal 15-46 [facility] Comment on above: Performed By: #### L [id number] #### Auto Fleet Maintenance Manager: BIANCA NICHOLS ([phone]) [facility] ([facility]) [address] [place] [address] Bilirubin [Mass/Vol] 0.6 mg/dL Normal 0.2-1.3 [facility] Comment on above: Performed By: #### L [id number] #### Auto Fleet Maintenance Manager: BIANCA NICHOLS ([phone]) [facility] ([facility]) [address] [place] [address] Calcium [Mass/Vol] 8.5 mg/dL Normal 8.4-10.4 [facility] Comment on above: Performed By: #### L [id number] #### Auto Fleet Maintenance Manager: BIANCA NICHOLS ([phone]) [facility] ([facility]) [address] [place] [address] Chloride [Moles/Vol] 109 mmol/L High 98-107 [facility] Comment on above: Performed By: #### L [id number] #### Auto Fleet Maintenance Manager: BIANCA NICHOLS ([phone]) [facility] [address] [place] [address] CO2 [Moles/Vol] 21 mmol/L Low 22-30 [facility] Comment on above: Performed By: #### L [id number] #### Auto Fleet Maintenance Manager: BIANCA NICHOLS ([phone]) [facility] [address] [place] [address] Creatinine [Mass/Vol] 0.50 mg/dL Low 0.66-1.25 [facility] Comment on above: Performed By: #### L [id number] #### Auto Fleet Maintenance Manager: BIANCA NICHOLS ([phone]) [facility] [address] [place] [address] GLOMERULAR FILTRATION RATE ML/MIN/1.73 SQ M.PREDICTED >90.0 Normal >60.0 [facility] Comment on above: Result Comment: Calc ulation based on the Chronic Kidney Disease Epidemiology Collaboration (CKD-EPI) equation refit without adjustment for race Performed By: #### L [id number] #### Auto Fleet Maintenance Manager: BIANCA NICHOLS ([phone]) [facility] ([facility]) [address] [place] [address] [place] Glucose [Mass/Vol] 207 mg/dL High 70-100 [facility] Comment on above: Performed By: #### L [id number] #### Auto Fleet Maintenance Manager: BIANCA NICHOLS ([id number]) [facility] ([facility] [address] [place] [address] [place] Potassium [Moles/Vol] 4.0 mmol/L Normal 3.5-5.1 [facility] Comment on above: Performed By: #### L [id number] #### Auto Fleet Maintenance Manager: BIANCA NICHOLS ([phone]) [facility] ([facility]) [address] [place] [address] Protein [Mass/Vol] 6.4 g/dL Normal 6.3-8.2 [facility] Comment on above: Performed By: #### L [id number] #### Auto Fleet Maintenance Manager: BIANCA NICHOLS ([phone]) [facility] ([facility]) [address] [place] [address] Sodium [Moles/Vol] 134 mmol/L Low 135-145 [facility] Comment on above: Performed By: #### L [id number] #### Auto Fleet Maintenance Manager: BIANCA NICHOLS ([id number]) [facility] [address] [place] [address] Urea nitrogen [Mass/Vol] 10 mg/dL Normal 9-20 [facility] Comment on above: Performed By: #### L [id number] #### Auto Fleet Maintenance Manager: BIANCA NICHOLS ([phone]) [facility] ([facility] [address] [place] [address] Comprehensive metabolic 1998 panelon 05-20-2024 Albumin [Mass/Vol] 3.2 g/dL Low 3.5 - 5.0 g/dL [facility] ALP [Catalytic activity/Vol] 153 U/L High 38 - 126 U/L [facility] ALT [Catalytic activity/Vol] 22 U/L 0 - 49 U/L [facility] Anion gap [Moles/Vol] 4 mmol/L 3 - 13 mmol/L [facility] AST [Catalytic activity/Vol] 23 U/L 15 - 46 U/L [facility] Bilirubin [Mass/Vol] 0.6 mg/dL 0.2 - 1 .3 mg/dL [facility] Calcium [Mass/Vol] 8.5 mg/dL 8.4 - 10. 4 mg/dL [facility] Chloride [Moles/Vol] 109 mmol/L High 98 - 10 7 mmol/L [facility] CO2 [Moles/Vol] 21 mmol/L Low 22 - 30 mmol/L [facility] Creatinine [Mass/Vol] 0.50 mg/dL Low 0.66 - 1.25 mg/dL [facility] GFR/1.73 sq M.predicted (S/P/Bld) [Vol rate/Area] - PINF [facility] Comment on above: Calculation based on the Chronic Kidney Disease Epidemiology Collaboration (CKD-EPI) equation refit without adjustment for race Glucose [Mass/Vol] 207 mg/dL High 70 - 100 mg/dL [facility] Interpretation and review of laboratory results Abnormal [facility] Potassium [Moles/Vol] 4.0 mmol/L 3.5 - 5.1 mmol/L [facility] Protein [Mass/Vol] 6.4 g/dL 6.3 - 8.2 g/dL [facility] Sodium [Moles/Vol] 134 mmol/L Low 135 - 145 mmol/L [facility] Urea nitrogen [Mass/Vol] 10 mg/dL 9 - 20 mg/dL [facility] IDNon 05-20-2024 IDN Problem: Knowledge Deficit Goal: Patient/family/caregi crytsal demonstrates understanding of disease process, treatment plan, medications, and discharge instructions Outcome: Progressing Problem: Potential for Compromised Skin Integrity Goal: Skin Integrity is Maintained or Improved Outcome: Progressing Goal: Nutritional status is improving Outcome: Progressing Normal [facility] Laboratory - Chemistry and C hemistry - challengeon 05-20-2024 Glucose [Mass/Vol] 233 mg/dL High 70 - 100 mg/dL [facility] Glucose [Mass/Vol] 315 mg/dL High 70 - 100 mg/dL [facility] Glucose [Mass/Vol] 255 mg/dL High 70 - 100 mg/dL [facility] Glucose [Mass/Vol] 275 mg/dL High 70 - 100 mg/dL [facility] Laboratory - Microbiology an d Antimicrobial susceptibilityOrdered By: Codie Tang on 05-20-2024 Bacteria identified Cx Nom (U) >100,000 CFU/mL Proteus mirabilis Abnormal [facility] Comment on above: For identification a nd/or sensitivity, refer to culture collected on: 05/18/2024 at 0016 ([id number]). Laboratory - Microbiology an d Antimicrobial susceptibilityon 05-20-2024 Bacteria identified Cx Nom (U) >100,000 CFU/mL Proteus mirabilis Abnormal [facility] Comment on above: This phenotype is singh ggestive of an ESBL-producing organism. Treatment with beta-lactam antibiotics other than carbapenems may not be effective. No Panel Informationon 05-20 Interpretation and review of laboratory results Abnormal [facility] Performed by: [facility], [address] [place] [address] CLIA ID: [id number] [facility] [place] Interpretation and review of laboratory results Abnormal [facility] [place] Performed by: [facility], [address] [place] [address] CLIA ID: [id number] [facility] [place] [facility] Interpretation and review of laboratory results Abnormal [facility] [place] Performed by: [employer] [facility], [address] [place] [address], Formerly [facility] [address] CLIA ID: [id number] [facility] [place] Interpretation and review of laboratory results Abnormal [facility] [place] Performed by: [facility] [place] [facility], [address] [place] [id number] CLIA ID: [id number] [facility] [place] [facility] [place] CARECOORDon 05-19-2024 [facility] Care Managment Initial Assessment Date: 05/19/2024 Patient Name: Anmol Reynolds : 1960 Patient Information Source of Information: Patient Cognition/Language: WFL - Within Functional Limits Permission given to speak with patient pharmaceutical sales representative/caregi crystal as indicated: Yes Confirmation of Payer with patient/family: Yes Payer Name: Medicare A/B; [place] Medicaid : No Confirmation of Primary Care Physician: Confirmed PCP Name: Tab Nieves MD at facility Seen in last 2 years?: Yes Primary Caregiver: Other (Comment) (facility staff) If assistance needed, confirmed caregiver ready, willing and able to care for patient at discharge: No (n/a) Confirmed with: Living Arrangements Facility: Skilled Nursing/[facility] Facility Name: [facility] Plan to Return: Yes Lives with: Alone, Other (Comment) (at [facility]) Support Systems: Children, Family members, Comments (Other) (facility staff) Activities of Daily Living Ambulation: Total Care (patient paraplegic waist down) Bathing/Dressing: Assistance Elimination/Continenc e/Toileting: Assistance Feeding: Independent Who Assists with Activities of Daily Living: Instrumental Activities of Daily Living Prescription Coverage: Yes Pharmacy Used: facility manages Medication Management: Transportation/Shoppi ng: Assistance Provider Transportation/Shoppi ng Assistance Provider Name: cot transport Transportation Mode: Needs Assistance with Transportation at Discharge: Yes Meal Preparation: Assistance Provider Meal Prep Assistance Provider Name: facility manages Laundry/Cleaning: Assistance Provider Laundry/Cleaning Assistance Provider Name: facility manages Finances/Bill Paying: Communication: Independent Types of Care Services/Equipment Utilized Durable Medical Equipment: Wheelchair (standard or power), Hospital Bed, [place] Lift Patient's Goal/Discharge Plan Patient expects to be discharged to: return to ECF Discharge Planning Actions: Continue to follow, [facility] Facility referral indicated Aguilar of choice: Aguilar of choice discussed (choice list not indicated; patient is a return to ECF) Patient's Choice Rights and [employer] and Collaborative Relationships Disclosed as Indicated for Post-Acute Care: Yes Interdisciplinary Team Engagement: Social Work Referral for: Additional Information: Introduced self and role to patient at bedside. Patient admitted with +BC x1 from ECF. Patient with recent bilateral ureteral stent placement 2/2 bilateral hydronephrosis. +chronic santana. +IV abx. Urine and blood cultures pending ID consulted. Patient is a resident at [facility]. Patient confirmed plan for return. [employer] tasked to place return referral. Anticipate discharge in 2-3 days pending medical stability. Patient will need transport. TCC to continue to follow. Vipin Peter RN Normal [facility] CBC (HEMOGRAM)on 05-19-2024 Erythrocyte distribution width (RBC) [Ratio] 14.9 % Normal 11.5-15.0 [facility] Comment on above: Performed By: #### L [id number] #### Auto Fleet Maintenance Manager: BIANCA NICHOLS ([id number]) [address] Hematocrit (Bld) [Volume fraction] 35.8 % Low 40.0-52.0 [facility] Comment on above: Performed By: #### L [id number] #### Auto Fleet Maintenance Manager: BIANCA NICHOLS ([id number]) [address] [place] [address] [place] Hemoglobin (Bld) [Mass/Vol] 12.0 g/dL Low 13.0-18.0 [facility] Comment on above: Performed By: #### L [id number] #### Auto Fleet Maintenance Manager: BIANCA NICHOLS ([id number]) [facility] ([facility]) [address] [place] [address] MCH (RBC) [Entitic mass] 30.3 pg Normal 26.0-34.0 [facility] Comment on above: Performed By: #### L [id number] #### Auto Fleet Maintenance Manager: BIANCA NICHOLS ([id number]) [facility] ([facility]) [address] [place] [address] MCHC 33.5 % Normal 30.5-36.0 [facility] Comment on above: Performed By: #### L [id number] #### Auto Fleet Maintenance Manager: BIANCA NICHOLS ([id number]) [facility] ([facility]) [address] [place] [address] MCV (RBC) [Entitic vol] 90.4 fL Normal 77.0-99.0 [facility] Comment on above: Performed By: #### L [id number] #### Auto Fleet Maintenance Manager: BIANCA NICHOLS ([id number]) [facility] ([facility]) [address] [place] [address] Platelet mean volume (Bld) [Entitic vol] 10.6 fL Normal 9.0-12.7 [facility] Comment on above: Performed By: #### L [id number] #### Auto Fleet Maintenance Manager: BIANCA NICHOLS ([id number]) [facility] ([facility]) [address] [place] [address] Platelets (Bld) [#/Vol] 212 10*3/uL Normal 140-440 [facility] Comment on above: Performed By: #### L [id number] #### Auto Fleet Maintenance Manager: BIANCA NICHOLS ([id number]) [facility] ([facility]) [address] [place] [address] RBC (Bld) [#/Vol] 3.96 10*6/uL Low 4.40-5.90 [facility] Comment on above: Performed By: #### L [id number] #### Auto Fleet Maintenance Manager: BIANCA NICHOLS ([id number]) [facility] ([facility]) [address] [place] [address] WBC (Bld) [#/Vol] 5.4 10*3/uL Normal 3.6-10.7 [facility] Comment on above: Performed By: #### L [id number] #### Auto Fleet Maintenance Manager: BIANCA NICHOLS ([id number]) [facility] [address] [place] [address] CBC panel Auto (Bld)on 05-19 Erythrocyte distribution width (RBC) [Ratio] 14.9 % 11.5 - 15.0 % [facility] Hematocrit (Bld) [Volume fraction] 35.8 % Low 40.0 - 52.0 % [facility] Hemoglobin (Bld) [Mass/Vol] 12.0 g/dL Low 13.0 - 18.0 g/dL [facility] Interpretation and review of laboratory results Abnormal [facility] MCH (RBC) [Entitic mass] 30.3 pg 26. 0 - 34.0 pg [facility] MCHC (RBC) [Mass/Vol] 33.5 % 30.5 - 36.0 % [facility] MCV (RBC) [Entitic vol] 90.4 fL 77.0 - 99.0 fL [facility] Platelet mean volume (Bld) [Entitic vol] 10.6 fL 9.0 - 12.7 fL [facility] Platelets (Bld) [#/Vol] 212 10*3/uL 140 - 440 10*3/uL [facility] RBC (Bld) [#/Vol] 3.96 10*6/uL Low 4.40 - 5.9 0 10*6/uL [facility] WBC (Bld) [#/Vol] 5.4 10*3/uL 3.6 - 10.7 10*3/uL [facility] COMPREHENSIVE METABOLIC PANE Antonio 05-19-2024 Albumin [Mass/Vol] 3.1 g/dL Low 3.5-5.0 [facility] Comment on above: Performed By: #### L [id number] #### Auto Fleet Maintenance Manager: BIANCA [id number]) [facility] ([facility]) [address] [place] [address] [place] ALP [Catalytic activity/Vol] 155 U/L High 38-126 [facility] Comment on above: Performed By: #### L [id number] #### Auto Fleet Maintenance Manager: BIANCA NICHOLS ([id number]) [facility] [address] [place] [address] [place] ALT [Catalytic activity/Vol] 19 U/L Normal 0-49 [facility] Comment on above: Performed By: #### L [id number] #### Auto Fleet Maintenance Manager: BIANCA NICHOLS ([id number]) [facility] [address] [place] [address] Anion gap [Moles/Vol] 3 mmol/L Normal 3-13 [facility] Comment on above: Performed By: #### L [id number] #### Auto Fleet Maintenance Manager: BIANCA NICHOLS ([id number]) [facility] [address] [place] [address] AST [Catalytic activity/Vol] 29 U/L Normal 15-46 [facility] Comment on above: Performed By: #### L [id number] #### Auto Fleet Maintenance Manager: BIANCA NICHOLS ([id number]) [facility] ([facility]) [address] [place] [address] Bilirubin [Mass/Vol] 0.6 mg/dL Normal 0.2-1.3 [facility] Comment on above: Performed By: #### L [id number] #### Auto Fleet Maintenance Manager: BIANCA NICHOLS ([id number]) [facility] [address] [place] [address] [place] Calcium [Mass/Vol] 8.4 mg/dL Normal 8.4-10.4 [facility] Comment on above: Performed By: #### L [id number] #### Auto Fleet Maintenance Manager: BIANCA NICHOLS ([id number]) [facility] [address] [place] [address] [place] Chloride [Moles/Vol] 110 mmol/L High 98-107 [facility] Comment on above: Performed By: #### L [id number] #### Auto Fleet Maintenance Manager: BIANCA NICHOLS ([id number]) [facility] ([facility]) [address] [place] [address] CO2 [Moles/Vol] 21 mmol/L Low 22-30 [facility] Comment on above: Performed By: #### L [id number] #### Auto Fleet Maintenance Manager: BIANCA NICHOLS ([id number]) [facility] ([facility]) [address] [place] [address] Creatinine [Mass/Vol] 0.44 mg/dL Low 0.66-1.25 [facility] Comment on above: Performed By: #### L [id number] #### Auto Fleet Maintenance Manager: BIANCA NICHOLS ([id number]) [facility]) [address] [place] [address] GLOMERULAR FILTRATION RATE ML/MIN/1.73 SQ M.PREDICTED >90.0 Normal >60.0 [facility] Comment on above: Result Comment: Calc ulation based on the Chronic Kidney Disease Epidemiology Collaboration (CKD-EPI) equation refit without adjustment for race Performed By: #### L [id number] #### Auto Fleet Maintenance Manager: BIANCA NICHOLS ([id number]) [facility]) [address] [place] [address] Glucose [Mass/Vol] 212 mg/dL High 70-100 [facility] Comment on above: Performed By: #### L [id number] #### Auto Fleet Maintenance Manager: BIANCA NICHOLS ([id number]) [facility]) [address] [place] [address] Potassium [Moles/Vol] 3.4 mmol/L Low 3.5-5.1 [facility] Comment on above: Performed By: #### L [id number] #### Auto Fleet Maintenance Manager: BIANCA NICHOLS ([id number]) [facility]) [address] [place] [address] Protein [Mass/Vol] 6.3 g/dL Normal 6.3-8.2 [facility] Comment on above: Performed By: #### L [id number] #### Auto Fleet Maintenance Manager: BIANCA [id number]) [facility] ([facility]) [address] [place] [address] Sodium [Moles/Vol] 134 mmol/L Low 135-145 [facility] Comment on above: Performed By: #### L [id number] #### Auto Fleet Maintenance Manager: BIANCA NICHOLS ([id number]) [facility] ([facility]) [address] [place] [address] Urea nitrogen [Mass/Vol] 11 mg/dL Normal 9-20 [facility] Comment on above: Performed By: #### L [id number] #### Auto Fleet Maintenance Manager: BIANCA NICHOLS ([id number]) [facility]) [address] [place] [address] Comprehensive metabolic 1998 panelOrdered By: Harman Dempsey on 05-19-2024 Albumin [Mass/Vol] 3.1 g/dL Low 3.5 - 5.0 g/dL [facility] ALP [Catalytic activity/Vol] 155 U/L High 38 - 126 U/L [facility] ALT [Catalytic activity/Vol] 19 U/L 0 - 49 U/L [facility] Anion gap [Moles/Vol] 3 mmol/L 3 - 13 mmol/L [facility] AST [Catalytic activity/Vol] 29 U/L 15 - 46 U/L [facility] Bilirubin [Mass/Vol] 0.6 mg/dL 0.2 - 1 .3 mg/dL [facility] Calcium [Mass/Vol] 8.4 mg/dL 8.4 - 10. 4 mg/dL [facility] Chloride [Moles/Vol] 110 mmol/L High 98 - 10 7 mmol/L [facility] CO2 [Moles/Vol] 21 mmol/L Low 22 - 30 mmol/L [facility] Creatinine [Mass/Vol] 0.44 mg/dL Low 0.66 - 1.25 mg/dL [facility] GFR/1.73 sq M.predicted (S/P/Bld) [Vol rate/Area] - PINF [facility] Comment on above: Calculation based on the Chronic Kidney Disease Epidemiology Collaboration (CKD-EPI) equation refit without adjustment for race Glucose [Mass/Vol] 212 mg/dL High 70 - 100 mg/dL [facility] Interpretation and review of laboratory results Abnormal [facility] Potassium [Moles/Vol] 3.4 mmol/L Low 3.5 - 5.1 mmol/L [facility] [place] Protein [Mass/Vol] 6.3 g/dL 6.3 - 8.2 g/dL [facility] Sodium [Moles/Vol] 134 mmol/L Low 135 - 145 mmol/L [facility] Urea nitrogen [Mass/Vol] 11 mg/dL 9 - 20 mg/dL [facility] Laboratory - Chemistry and C hemistry - challengeon 05-19-2024 Glucose [Mass/Vol] 292 mg/dL High 70 - 100 mg/dL [facility] Glucose [Mass/Vol] 294 mg/dL High 70 - 100 mg/dL [facility] Glucose [Mass/Vol] 333 mg/dL High 70 - 100 mg/dL [facility] Glucose [Mass/Vol] 274 mg/dL High 70 - 100 mg/dL [facility] No Panel Informationon 05-19 Interpretation and review of laboratory results Abnormal [facility] Performed by: [facility], [address] [place] [address] CLIA ID: [id number] [facility] Interpretation and review of laboratory results Abnormal [facility] Performed by: [facility], [address] [place] [address] CLIA ID: [id number] [facility] Interpretation and review of laboratory results Abnormal [facility] Performed by: [facility], [address] [place] [address] CLIA ID: [id number] [facility] Interpretation and review of laboratory results Abnormal [facility] Performed by: [facility], [address] [place] [address] CLIA ID: [id number] [facility] Progress Noteon 05-19-2024 Progress Note Nutrition Assessment Type and Reason for Visit: Initial, Positive Nutrition Screen, Wound (+ decreased appetite) Nutrition Recommendations/Plan: Pt ordered Regular diet, would consider CHO Control diet to aide in BG control, otherwise will monitor. Pt has in the past declined Ensure/ONS, will monitor acutely. RD to monitor weight, labs, fluid, overall nutritional status & follow up weekly. 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 neurogenic bladder (01/2022) who required I&D x2 with KRIS (01/06/22) and T12-L5 posterior spinal instrumentation (01/14/22)--> followed by [facility] and treated with 6 weeks daptomycin with suppressive minocycline presented for this admission for evaluation of positive blood cultures; of note, pt was recently admitted to [facility] 04/14-04/20/2024 with proteus, providencia, and morganella bacteremia d/t complicated UTI, underwent cystoscopy, bilateral stent change and santana catheter insertion (04/14) for B hydronephrosis and obstruction due to B ureteral calculus, completed 2 weeks of IV Ertapenem through 04/30, on 05/06 he underwent cystoscopy, B laser lithotripsy and ureteral stent exchange, pt then had surveillance blood cultures collected on 05/16 growing GPC in clusters in one set, was advised to go to ED for evaluation and IV antibiotics; pt without any symptoms/complaints per chart, presented to ED afebrile and HDS, work-up showing WBC 3.5, LA 1.4, SCr 0.68, UA shows evidence of infection with >100 WBC and many bacteria in setting of santana catheter, santana was exchanged in ED, repeat blood cultures were drawn in ED; pt received pip/tazo, ID consulted to assist with antimicrobial management; pt ordered Regular PO diet. RD visited pt's room this morning (late entry), pt sleeping and asking to keep sleeping, did report tolerating breakfast this morning and denied needing anything at the time; bedscale reading 213#. Per chart review pt does not care for Ensure ONS. Estimated Daily Nutrient Needs: Energy Requirements Based On: Kcal/kg Weight Used for Energy Requirements: [place] Weight for Energy Calculation (kg): 89 kg Total Energy Requirements (kcals/day): 4669-7310 kcal/day (25-30 kcal/kg) Weight Used for Protein Requirements: [place] Weight in Kg Used for Protein Requirements: 89 kg Estimated Total Protein (g/day): ~107 gm protein/day (1.2 gm protein/kg) Estimated Daily Total Fluid (ml/day): per MD Nutrition Related Findings: +BS, last BM 05/18; +2 BLE edema; medications include remeron; labs: Na (134), BG (212), ALP (155), recent hemoglobin a1c (6.3%) Wound Type: (healed posterior lumbar scar without erythema, small sacral decubitus without drainage or s/o inflammation; Jack 14) Current Nutrition Therapies: Adult diet Regular Current Oral Intake Average Meal Intake: 76-100% (per chart) Average Supplements Intake: None Ordered Anthropometric Measures: Height: 190.5 cm (6' 3") Current Body Weight: 96.6 kg (213 lb) Weight Source: Bed Scale Admission Body Weight: 90.7 kg (200 lb) (stated) Usual Body Weight: (weights in EMR mostly appear stated, 180-200#, noted 04/19- 212#) [place] Body Weight (lbs) (Calculated): 196 lbs [place] Body Weight (Kg) (Calculated): 89 kg BMI (kg/m2) (Calculated): 26.6 Weight Adjustment For: No Adjustment BMI Categories: Overweight (BMI 25.0-29.9) Nutrition Diagnosis: Altered nutrition-related lab values related to endocrine dysfuntion as evidenced by lab values Nutrition Interventions: Nutrition Education/Counseling: Education not appropriate Coordination of Nutrition Care: Continue to monitor while inpatient Plan of Care discussed with: N/A Goals: Goals: PO intake 75% or greater, by next RD assessment, other (specify) Specify Other Goals: labs controlled Nutrition Monitoring and Evaluation: Behavioral-Environmen elsie Outcomes: (N/A) Food/Nutrient Intake Outcomes: Food and Nutrient Intake Physical Signs/Symptoms Outcomes: Biochemical Data, Meal Time Behavior, Skin, Nutrition Focused Physical Findings, Weight, Fluid Status or Edema Discharge Planning: Too soon to determine Chelita Dominguez RD Contact: Secure chat or *[phone] Normal [facility] BASIC METABOLIC PANELon 08- Anion gap [Moles/Vol] 5 mmol/L Normal 3-13 [facility] Comment on above: Performed By: #### L [id number] #### Auto Fleet Maintenance Manager: BIANCA NICHOLS ([id number]) [facility] [address] [place] [address] Calcium [Mass/Vol] 8.6 mg/dL Normal 8.4-10.4 [facility] Comment on above: Performed By: #### L [id number] #### Auto Fleet Maintenance Manager: BIANCA NICHOLS ([id number]) [facility] ([facility]) [address] [place] [address] [place] Chloride [Moles/Vol] 108 mmol/L High 98-107 [facility] Comment on above: Performed By: #### L [id number] #### Auto Fleet Maintenance Manager: BIANCA NICHOLS ([phone]) [facility] [address] [place] [address] CO2 [Moles/Vol] 22 mmol/L Normal 22-30 [facility] Comment on above: Performed By: #### L [id number] #### Auto Fleet Maintenance Manager: BIANCA NICHOLS ([id number]) [facility] ([facility] [address] [place] [address] Creatinine [Mass/Vol] 0.64 mg/dL Low 0.66-1.25 [facility] Comment on above: Performed By: #### L [id number] #### Auto Fleet Maintenance Manager: BIANCA NICHOLS ([id number]) [facility] ([facility]) [address] [place] [address] GLOMERULAR FILTRATION RATE ML/MIN/1.73 SQ M.PREDICTED >90.0 Normal >60.0 [facility] Comment on above: Result Comment: Calc ulation based on the Chronic Kidney Disease Epidemiology Collaboration (CKD-EPI) equation refit without adjustment for race ORDER COMMENTS: Slightly Hemolyzed. Interpret K+ with caution. Performed By: #### L [id number] #### Auto Fleet Maintenance Manager: BIANCA NICHOLS ([id number]) [facility] [address] [place] [address] [place] Glucose [Mass/Vol] 143 mg/dL High 70-100 [facility] Comment on above: Performed By: #### L [id number] #### Auto Fleet Maintenance Manager: BIANCA [id number]) [facility] ([facility]) [address] [place] [address] Potassium [Moles/Vol] 4.5 mmol/L Normal 3.5-5.1 [facility] Comment on above: Performed By: #### L [id number] #### Auto Fleet Maintenance Manager: BIANCA NICHOLS ([id number]) [facility] ([facility]) [address] [place] [address] Sodium [Moles/Vol] 136 mmol/L Normal 135-145 [facility] Comment on above: Performed By: #### L [id number] #### Auto Fleet Maintenance Manager: BIANCA NICHOLS ([phone]) [facility] [address] [place] [address] Urea nitrogen [Mass/Vol] 13 mg/dL Normal 9-20 [facility] Comment on above: Performed By: #### L [id number] #### Auto Fleet Maintenance Manager: BIANCA NICHOLS ([id number]) [facility] [address] [place] [address] Basic metabolic 1998 panelon 05-18-2024 Anion gap [Moles/Vol] 5 mmol/L 3 - 13 mmol/L [facility] Calcium [Mass/Vol] 8.6 mg/dL 8.4 - 10. 4 mg/dL [facility] Chloride [Moles/Vol] 108 mmol/L High 98 - 10 7 mmol/L [facility] CO2 [Moles/Vol] 22 mmol/L 22 - 30 mmol/L [facility] Creatinine [Mass/Vol] 0.64 mg/dL Low 0.66 - 1.25 mg/dL [facility] GFR/1.73 sq M.predicted (S/P/Bld) [Vol rate/Area] - PINF [facility] Comment on above: Calculation based on the Chronic Kidney Disease Epidemiology Collaboration (CKD-EPI) equation refit without adjustment for race Glucose [Mass/Vol] 143 mg/dL High 70 - 100 mg/dL [facility] Interpretation and review of laboratory results Abnormal [facility] Potassium [Moles/Vol] 4.5 mmol/L 3.5 - 5.1 mmol/L [facility] Sodium [Moles/Vol] 136 mmol/L 135 - 145 mmol/L [facility] Urea nitrogen [Mass/Vol] 13 mg/dL 9 - 20 mg/dL [facility] Slightly Hemolyzed. Interpret K+ with caution. [facility] CBC W Auto Differential pane l (Bld)Ordered By: Gayle Stafford on 05-18-2024 Basophils (Bld) [#/Vol] 0.1 10*3/uL 0.0 - 0.2 10*3/uL [facility] Basophils/100 WBC (Bld) 0.8 % 0.0 - 2.0 % [facility] Eosinophils (Bld) [#/Vol] 0.4 10*3/uL 0.0 - 0.5 10*3/uL [facility] Eosinophils/100 WBC (Bld) 5.4 % 0.0 - 6.0 % [facility] Erythrocyte distribution width (RBC) [Ratio] 15.6 % High 11.5 - 15.0 % [facility] Hematocrit (Bld) [Volume fraction] 38.7 % Low 40.0 - 52.0 % [facility] Hemoglobin (Bld) [Mass/Vol] 12.5 g/dL Low 13.0 - 18.0 g/dL [facility] Immature granulocytes (Bld) [#/Vol] 0.0 10*3/uL NINF - 0.1 10*3/uL [facility] Immature granulocytes/100 WBC (Bld) 0.4 % 0.0 - 2.0 % [facility] Interpretation and review of laboratory results Abnormal [facility] Lymphocytes (Bld) [#/Vol] 2.2 10*3/uL 1.0 - 4.3 10*3/uL [facility] Lymphocytes/100 WBC (Bld) 28.0 % 15.0 - 45.0 % [facility] MCH (RBC) [Entitic mass] 30.3 pg 26. 0 - 34.0 pg [facility] MCHC (RBC) [Mass/Vol] 32.3 % 30.5 - 36.0 % [facility] MCV (RBC) [Entitic vol] 93.7 fL 77.0 - 99.0 fL [facility] Monocytes (Bld) [#/Vol] 0.7 10*3/uL 0.0 - 0.9 10*3/uL [facility] [facility] Monocytes/100 WBC (Bld) 9.6 % 5.0 - 13.0 % [facility] Neutrophils (Bld) [#/Vol] 4.3 10*3/uL 1.8 - 7.5 10*3/uL [facility] Neutrophils/100 WBC (Bld) 55.8 % 38.0 - 82.0 % [facility] Nucleated RBC/100 WBC (Bld) [Ratio] 0.0 % [facility] Platelet mean volume (Bld) [Entitic vol] 10.9 fL 9.0 - 12.7 fL [facility] Platelets (Bld) [#/Vol] 222 10*3/uL 140 - 440 10*3/uL [facility] RBC (Bld) [#/Vol] 4.13 10*6/uL Low 4.40 - 5.9 0 10*6/uL [facility] WBC (Bld) [#/Vol] 7.7 10*3/uL 3.6 - 10.7 10*3/uL [facility] CBC WITH AUTO DIFFERENTIALon 05-18-2024 Basophils (Bld) [#/Vol] 0.1 10*3/uL Normal 0.0-0.2 [facility] Comment on above: Performed By: #### L [id number] #### Auto Fleet Maintenance Manager: BIANCA NICHOLS ([phone]) [facility] ([facility]) [address] [place] [address] Basophils/100 WBC (Bld) 0.8 % Normal 0.0-2.0 [facility] Comment on above: Performed By: #### L [id number] #### Auto Fleet Maintenance Manager: BIANCA NICHOLS ([phone]) [facility] ([facility]) [address] [place] [address] [place] Eosinophils (Bld) [#/Vol] 0.4 10*3/uL Normal 0.0-0.5 [facility] Comment on above: Performed By: #### L [id number] #### Auto Fleet Maintenance Manager: BIANCA NICHOLS ([phone]) [facility] ([facility]) [address] [place] [address] [place] Eosinophils/100 WBC (Bld) 5.4 % Normal 0.0-6.0 [facility] Comment on above: Performed By: #### L [id number] #### Auto Fleet Maintenance Manager: BIANCA NICHOLS ([phone]) [facility] ([facility]) [address] [place] [address] Erythrocyte distribution width (RBC) [Ratio] 15.6 % High 11.5-15.0 [facility] Comment on above: Performed By: #### L [id number] #### Auto Fleet Maintenance Manager: BIANCA NICHOLS ([phone]) [facility]) [address] [place] [address] Hematocrit (Bld) [Volume fraction] 38.7 % Low 40.0-52.0 [facility] Comment on above: Performed By: #### L [id number] #### Auto Fleet Maintenance Manager: BIANCA NICHOLS ([phone]) [facility]) [address] [place] [address] Hemoglobin (Bld) [Mass/Vol] 12.5 g/dL Low 13.0-18.0 [facility] Comment on above: Performed By: #### L [id number] #### Auto Fleet Maintenance Manager: BIANCA NICHOLS ([phone]) [facility] ([facility]) [address] [place] [address] IMMATURE GRANS % 0.4 % Normal 0.0-2.0 [facility] Comment on above: Performed By: #### L [id number] #### Auto Fleet Maintenance Manager: BIANCA NICHOLS ([phone]) [facility]) [address] [place] [address] IMMATURE GRANS ABSOLUTE 0.0 10*3/uL Normal <0.1 [facility] Comment on above: Performed By: #### L [id number] #### Auto Fleet Maintenance Manager: BIANCA NICHOLS ([phone]) [facility]) [address] [place] [address] [place] Lymphocytes (Bld) [#/Vol] 2.2 10*3/uL Normal 1.0-4.3 [facility] Comment on above: Performed By: #### L [id number] #### Auto Fleet Maintenance Manager: BIANCA NICHOLS ([phone]) [facility]) [address] [place] [address] Lymphocytes/100 WBC (Bld) 28.0 % Normal 15.0-45.0 [facility] Comment on above: Performed By: #### L [id number] #### Auto Fleet Maintenance Manager: BIANCA NICHOLS ([phone]) [facility] ([facility]) [address] [place] [address] MCH (RBC) [Entitic mass] 30.3 pg Normal 26.0-34.0 [facility] Comment on above: Performed By: #### L [id number] #### Auto Fleet Maintenance Manager: BIANCA NICHOLS ([phone]) [facility] ([facility]) [address] [place] [address] MCHC 32.3 % Normal 30.5-36.0 [facility] Comment on above: Performed By: #### L [id number] #### Auto Fleet Maintenance Manager: BIANCA NICHOLS ([phone]) [facility] ([facility]) [address] [place] [address] MCV (RBC) [Entitic vol] 93.7 fL Normal 77.0-99.0 [facility] Comment on above: Performed By: #### L [id number] #### Auto Fleet Maintenance Manager: BIANCA NICHOLS ([phone]) [facility] ([facility]) [address] [place] [address] Monocytes (Bld) [#/Vol] 0.7 10*3/uL Normal 0.0-0.9 [facility] Comment on above: Performed By: #### L [id number] #### Auto Fleet Maintenance Manager: BIANCA NICHOLS ([id number]) [facility] ([facility]) [address] [place] [address] Monocytes/100 WBC (Bld) 9.6 % Normal 5.0-13.0 [facility] Comment on above: Performed By: #### L [id number] #### Auto Fleet Maintenance Manager: BIANCA NICHOLS ([phone]) [facility] ([facility]) [address] [place] [address] NEUTROPHILS ABSOLUTE 4.3 10*3/uL Normal 1.8-7.5 [facility] Comment on above: Performed By: #### L [id number] #### Auto Fleet Maintenance Manager: BIANCA NICHOLS ([phone]) [facility] ([facility]) [address] [place] [address] Neutrophils/100 WBC (Bld) 55.8 % Normal 38.0-82.0 [facility] Comment on above: Performed By: #### L [id number] #### Auto Fleet Maintenance Manager: IBANCA NICHOLS ([phone]) [facility] ([facility]) [address] [place] [address] NRBC 0.0 /100 WBCs Normal 0.0-2.0 [facility] Comment on above: Performed By: #### L [id number] #### Auto Fleet Maintenance Manager: BIANCA NICHOLS ([phone]) [facility] ([facility]) [address] [place] [address] Platelet mean volume (Bld) [Entitic vol] 10.9 fL Normal 9.0-12.7 [facility] Comment on above: Performed By: #### L [id number] #### Auto Fleet Maintenance Manager: BIANCA NICHOLS ([phone]) [facility] ([facility]) [address] [place] [address] Platelets (Bld) [#/Vol] 222 10*3/uL Normal 140-440 [facility] Comment on above: Performed By: #### L [id number] #### Auto Fleet Maintenance Manager: BIANCA NICHOLS ([phone]) [facility] ([facility]) [address] [place] [address] RBC (Bld) [#/Vol] 4.13 10*6/uL Low 4.40-5.90 [facility] Comment on above: Performed By: #### L [id number] #### Auto Fleet Maintenance Manager: BIANCA NICHOLS ([phone]) [facility] ([facility]) [address] [place] [address] WBC (Bld) [#/Vol] 7.7 10*3/uL Normal 3.6-10.7 [facility] Comment on above: Performed By: #### L [id number] #### Auto Fleet Maintenance Manager: BIANCA NICHOLS ([phone]) [facility] ([facility]) [address] [place] [address] COMPLETE URINALYSISon 2023 BACTERIA (#/HPF) IN URINE Many Abnormal Negative [facility] Comment on above: Performed By: #### L [id number] #### Auto Fleet Maintenance Manager: BIANCA NICHOLS ([phone]) [facility] ([facility]) [address] [place] [address] BILIRUBIN, TOTAL PRESENCE IN URINE Negative Normal Negative [facility] Comment on above: Performed By: #### L [id number] #### Auto Fleet Maintenance Manager: BIANCA NICHOLS ([phone]) [facility] ([facility]) [address] [place] [address] Clarity (U) Turbid Abnormal Clear [facility] Comment on above: Performed By: #### L [id number] #### Auto Fleet Maintenance Manager: BIANCA NICHOLS ([phone]) [facility]) [address] [place] [address] Color (U) Yellow Normal Lt. Yellow [facility] Comment on above: Performed By: #### L [id number] #### Auto Fleet Maintenance Manager: BIANCA NICHOLS ([phone]) [facility] ([facility]) [address] [place] [address] GLUCOSE (MG/DL) IN URINE Normal Normal Nor mal (<70) [facility] Comment on above: Performed By: #### L [id number] #### Auto Fleet Maintenance Manager: BIANCA NICHOLS ([phone]) [facility] ([facility]) [address] [place] [address] HEMOGLOBIN PRESENCE IN URINE 0.5 mg/dL Abnormal Negative [facility] Comment on above: Performed By: #### L [id number] #### Auto Fleet Maintenance Manager: BIANCA NICHOLS ([phone]) [facility]) [address] [place] [address] HYALINE CASTS (#/LPF) IN URINE SEDIMENT BY MICROSCOPY Negative Normal Negative [facility] Comment on above: Performed By: #### L [id number] #### Auto Fleet Maintenance Manager: BIANCA NICHOLS ([phone]) [facility] ([facility]) [address] [place] [address] Ketones Ql (U) Negative Normal Negative [facility] Comment on above: Performed By: #### L [id number] #### Auto Fleet Maintenance Manager: BIANCA NICHOLS ([phone]) [facility] ([facility]) [address] [place] [address] LEUKOCYTE ESTERASE PRESENCE IN URINE BY TEST STRIP 500 Da/uL Abnormal Negative [facility] Comment on above: Performed By: #### L [id number] #### Auto Fleet Maintenance Manager: BIANCA NICHOLS ([phone]) [facility] ([facility]) [address] [place] [address] [place] MUCUS (#/LPF) IN URINE SEDIMENT Few Normal Negative [facility] Comment on above: Performed By: #### L [id number] #### Auto Fleet Maintenance Manager: BIANCA NICHOLS ([phone]) [facility] ([facility]) [address] [place] [address] NITRITE PRESENCE IN URINE Positive Abnormal Negative [facility] Comment on above: Performed By: #### L [id number] #### Auto Fleet Maintenance Manager: BIANCA NICHOLS ([id number]) [facility] ([facility]) [address] [place] [address] pH (U) 6.5 [pH] Normal 5.0-8.0 [facility] Comment on above: Performed By: #### L [id number] #### Auto Fleet Maintenance Manager: BIANCA NICHOLS ([phone]) [facility] ([facility]) [address] [place] [address] Protein (U) [Mass/Vol] 50 mg/dL Abnormal Negative [facility] Comment on above: Performed By: #### L [id number] #### Auto Fleet Maintenance Manager: BIANCA NICHOLS ([phone]) [facility] ([facility]) [address] [place] [address] [place] RBC (#/HPF) IN URINE SEDIMENT 51-100 Abnormal 0-2 [facility] Comment on above: Performed By: #### L [id number] #### Auto Fleet Maintenance Manager: BIANCA NICHOLS ([phone]) [facility] ([facility]) [address] [place] [address] Specific gravity (U) [Rel density] 1.015 Normal 1.005-1.030 [facility] Comment on above: Performed By: #### L [id number] #### Auto Fleet Maintenance Manager: BIANCA NICHOLS ([phone]) [facility] ([facility]) [address] [place] [address] SQUAMOUS EPITHELIAL CELLS (#/HPF) IN URINE SEDIMENT Negative Normal 3-5 [facility] Comment on above: Performed By: #### L [id number] #### Auto Fleet Maintenance Manager: BIANCA NICHOLS ([phone]) [facility] ([facility]) [address] [place] [address] UROBILINOGEN (MG/DL) IN URINE Normal Normal Normal (0-1) [facility] Comment on above: Performed By: #### L [id number] #### Auto Fleet Maintenance Manager: BIANCA NICHOLS ([phone]) [facility] ([facility]) [address] [place] [address] WBC (LEUKOCYTE) (#/HPF) IN URINE SEDIMENT >100 Abnormal 0-5 [facility] Comment on above: Performed By: #### L [id number] #### Auto Fleet Maintenance Manager: BIANCA NICHOLS ([phone]) [facility] ([facility]) [address] [place] [address] WBC (LEUKOCYTE) CLUMPS (#/HPF) IN URINE SEDIMENT Many Abnormal Negative [facility] Comment on above: Performed By: #### L [id number] #### Auto Fleet Maintenance Manager: BIANCA NICHOLS ([phone]) [facility]) [address] [place] [address] Consulton 05-18-2024 Consult [facility] - Infectious Diseases DOCUMENT MANAGEMENT TECHNICIAN inpatient Consult Note Reason for Consult: Complicated UTI History of Present Illness: Anmol Reynolds is a 63 y/o male with PMHx of HTN, HLD, DM, BPH, nephrolithiasis, spinal stenosis s/p L2-3 spinal fusion (12/2021), 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 He required I&D x2 with KRIS (01/06/22) and T12-L5 posterior spinal instrumentation (01/14/22)--> followed by [facility] and treated with 6 weeks daptomycin with suppressive minocycline. Pt presented to [facility] ED on 05/17/2024 for evaluation of positive blood cultures. Pt was recently admitted to [facility] 04/14-04/20/2024 with proteus, providencia, and morganella bacteremia d/t complicated UTI. He underwent cystoscopy, bilateral stent change and santana catheter insertion (04/14) for B hydronephrosis and obstruction due to B ureteral calculus. He completed 2 weeks of IV Ertapenem through 04/30. On 05/06 he underwent cystoscopy, B laser lithotripsy and ureteral stent exchange. He had surveillance blood cultures collected on 05/16 growing GPC in clusters in one set. He was advised to go to ED for evaluation and IV antibiotics. Pt denies any symptoms of fevers, chills, sob, chest pain, cough, nausea, vomiting, abdominal pain or urinary complaints. He presented to ED afebrile and hemodynamically stable. Work up shows: WBC 3.5, LA 1.4, Scr 0.68. UA shows evidence of infection with >100 wbc and many bacteria in setting of santana catheter. Santana was exchanged in ED. Repeat blood cultures were drawn in ED. He received pip/tazo. ID consulted to assist with antimicrobial management. Past Medical History: Past Medical History: Diagnosis Date Abnormal posture Abscess, perineum Anemia BPH (benign prostatic hyperplasia) Chronic back pain Hematuria Hip sprain Hyperlipidemia Hypertension Major depressive disorder, single episode, unspecified MRSA (methicillin resistant staph aureus) culture positive spine 2021 Muscle wasting and atrophy, not elsewhere classified, left lower leg Muscle weakness (generalized) Neuropathy Obstructive and reflux uropathy, unspecified Osteoarthritis Other abnormalities of gait and mobility Other reduced mobility Paraplegia (HCC) Sciatica Spinal stenosis of lumbar region with neurogenic claudication Type 2 diabetes mellitus without complication (CMS/HCC) (HCC) Urinary calculus, unspecified UTI (urinary tract infection) Past Surgical History: Past Surgical History: Procedure Laterality Date ANKLE SURGERY Right He has a titanium plate to the right ankle KNEE SURGERY Left ACL KNEE SURGERY Left removal of screw LAMINECTOMY Left 10/24/2020 LEFT BILATERAL L2-3-4-5 DECOMPRESSION performed by Opal Vigil MD at [facility] OR ORTHOPEDIC SURGERY Right removal of hardware ankle US PLACE URETAL STENT PERC PRE-EXIST TRACT S&I (HISTORICAL) Bilateral 04/14/2024 Dr. Patel/Bashir Current Medications: Current Facility-Administered Medications Medication Dose Route Frequency Provider Last Rate Last Admin acetaminophen (Tylenol) tablet 650 mg 650 mg Oral q6h PRN Heydi Concepcion MD Or acetaminophen (Tylenol) suppository 650 mg 650 mg Rectal q6h PRN Heydi Concepcion MD aspirin EC tablet 81 mg 81 mg Oral Daily Heydi Concepcion MD bisacodyl (Dulcolax) EC tablet 5 mg 5 mg Oral Daily PRN Heydi Concepcion MD calcium carbonate (Tums) chewable tablet 1,000 mg 1,000 mg Oral q8h PRN Heydi Concepcion MD cyclobenzaprine (Flexeril) tablet 10 mg 10 mg Oral TID PRN Heydi Concepcion MD dextrose 5 % infusion 100 mL/hr IntraVENous PRN Heydi Concepcion MD dextrose 50 % solution 12.5 g 12.5 g IntraVENous PRN Heydi Concepcion MD docusate sodium (Colace) capsule 100 mg 100 mg Oral BID Heydi Concepcion MD enoxaparin (Lovenox) syringe 40 mg 40 mg SubCUTAneous Daily Heydi Concepcion MD glucagon (human recombinant) injection 1 mg 1 mg IntraMUSCular PRN Heydi Concepcion MD glucose oral gel 15 g 15 g Oral PRN Heydi Concepcion MD HYDROmorphone (Dilaudid) tablet 4 mg 4 mg Oral q4h PRN Heydi Concepcion MD 4 mg at 05/18/24 0616 insulin glargine (Lantus) injection 45 Units 45 Units SubCUTAneous q AM Heydi Concepcion MD Insulin Lispro (Humalog) injection 0-12 Units 0-12 Units SubCUTAneous TID WC Heydi Concepcion MD And Insulin Lispro (Humalog) injection 0-12 Units 0-12 Units SubCUTAneous Nightly Heydi Concepcion MD mirtazapine (Remeron) tablet 7.5 mg 7.5 mg Oral Nightly Heydi Concepcion MD naloxone (Narcan) injection 0.4 mg 0.4 mg IntraVENous q5 min PRN Heydi Concepcion MD ondansetron ODT (Zofran-ODT) disintegrating tablet 4 mg 4 mg Oral q8h PRN Heydi Concepcion MD Or ondansetron (Zofran) injec (more content not included)... Normal [facility] ED Nursing Noteon 05-18-2024 ED Nursing Note Pt refusing BG check stating "I'm already eating." aware. Ella Zavala RN 05/18/[address] [facility] ED Nursing Note Pt refusing BG check at this time. aware. Ella Zavala RN 05/18/[address] [facility] ED Nursing Note Pt refusing continuous IV fluids. aware Ella Zavala RN 05/18/[address] [facility] ED Nursing Note Pt moved onto hospital bed, denies any needs or complaints at this time. Ella Zavala RN 05/18/[address] [facility] ED Nursing Note Pharmacy contacted regarding missing oxycodone. Ella aZvala RN 05/18/[address] [facility] ED Nursing Note Pt refused BG check/meds at this time stating "I just want some sleep." Hospital bed ordered for pt. Meds deferred at this time. Ella Zavala RN 05/18/[address] [facility] ED Nursing Note Pt had a bowel movement, this RN & another RN cleaned pt. Carmen Crews RN 05/18/[address] [facility] ED Nursing Note Pt transport has bee n requested Carmen Crews RN 05/18/[address] [facility] ED Nursing Note Pt is asleep, w/ unlabored breathing Carmen Crews RN 05/18/24 0155 Carmen Crews RN 05/18/24 0156 Normal [facility] IDNon 05-18-2024 IDN The patient is Moderately Stable - Low risk of patient condition declining or worsening The patient's goals for the shift include Pain control. The clinical goals for the shift include Patient to remain free of injury for the entirety of the shift. Normal [facility] Laboratory - Chemistry and C hemistry - challengeon 05-18-2024 Glucose [Mass/Vol] 140 mg/dL High 70 - 100 mg/dL [facility] No Panel Informationon 05-18 Interpretation and review of laboratory results Abnormal [facility] Performed by: [facility], [address] [place] [address] CLIA ID: [id number] [facility] URINE CULTUREon 05-18-2024 Bacteria identified Cx Nom (U) URINE CULTURE (A) Reference PROTEUS MIRABILIS >100,000 CFU/mL Proteus mirabilis (A) This phenotype is suggestive of an ESBL-producing organism. Treatment with beta-lactam antibiotics other than carbapenems may not be effective. Organism: PROTEUS MIRABILIS Antibiotic HARINDER Interpretation Status Ampicillin R F Ampicillin / Sulbactam R F Aztreonam <=1 ug/ml S F Cefazolin R F Cefepime R F Ceftriaxone 2 ug/ml I F Ciprofloxacin >=4 ug/ml R F Gentamicin <=1 ug/ml S F Meropenem <=0.25 ug/ml S F Nitrofurantoin R F Piperacillin / Tazobactam R F Trimethoprim / Sulfamethoxazole 160 ug/ml R F [ S = SUSCEPTIBLE R = RESISTANT I = INTERMEDIATE S-DD = Susceptible-dose dependent NS = Non-susceptible NO = No Interpretation ] Normal [facility] Comment on above: Performed By: #### L [id number] #### Auto Fleet Maintenance Manager: BIANCA NICHOLS ([phone]) [facility] ([facility]) [address] [place] [address] Urinalysis complete panel (U )Ordered By: Franchesca Garnica on 05-18-2024 Bacteria LM.HPF (Urine sed) [#/Area] Many Abnormal Negative /HPF [facility] Bilirubin Ql (U) Negative Negative mg/dL [facility] Clarity (U) Turbid Abnormal Clear [facility] Color (U) Yellow Lt. Yellow [facility] Epithelial cells.squamous LM.HPF (Urine sed) [#/Area] Negative [facility] Gl[facility]l (U) Normal Normal (<70) mg/dL [facility] Hemoglobin Ql (U) 0.5 mg/dL Abnormal Negative [facility] Hyaline casts Auto (Urine sed) [#/Area] Negative Negative /LPF [facility] Interpretation and review of laboratory results Abnormal [facility] Ketones (U) [Mass/Vol] Negative Negat mary grace mg/dL [facility] Leukocyte clumps LM.HPF (Urine sed) [#/Area] Many Abnormal Negative /HPF [facility] Leukocyte esterase Test strip Ql (U) 500 Abnormal Negative Da/uL [facility] Mucus LM.HPF (Urine sed) [#/Area] Few Negative /LPF [facility] Nitrite Ql (U) Positive Abnormal Negative [facility] th pH (U) 6.5 [pH] 5.0 - 8.0 pH [facility] Protein (U) [Mass/Vol] 50 mg/dL Abnormal Negative [facility] RBC LM.HPF (Urine sed) [#/Area] 51-100 Abnormal [facility] Specific gravity (U) [Rel density] 1.015 1.005 - 1.030 [facility] Urobilinogen (U) [Mass/Vol] Normal Normal (0-1) mg/dL [facility] WBC LM.HPF (Urine sed) [#/Area] /[HPF] Abnormal [facility] 36on 05-17-[address] Moyer his response in secure chat is to have him come to the hospital to get IV antibiotics. I called [facility] [place] [phone] and spoke with his nurse Clement and notified her Dr. Moyer is suggesting Anmol goes to the hospital for IV antibiotics due to his blood culture results. Normal [facility] 36 BC prelim received Gram positive cocci in clusters. Msg sent to Dr. Moyer via secure chat too. Normal [facility] BASIC METABOLIC PANELon 05-05 Anion gap [Moles/Vol] 6 mmol/L Normal 12-15 [facility] Comment on above: Performed By: #### L [id number] ####Auto Fleet Maintenance Manager: BIANCA NICHOLS ([phone])[facility] [place] [address] Calcium [Mass/Vol] 8.7 mg/dL Normal 8.4-10.4 [facility] Comment on above: Performed By: #### L [id number] ####Auto Fleet Maintenance Manager: BIANCA NICHOLS ([phone])[facility] [place] [address] [place] Chloride [Moles/Vol] 109 mmol/L High 98-107 [facility] Comment on above: Performed By: #### L [id number] ####Auto Fleet Maintenance Manager: BIANCA NICHOLS ([phone])[facility] [facility])[address] [place] [address] CO2 [Moles/Vol] 20 mmol/L Low 22-30 [facility] Comment on above: Performed By: #### L [id number] ####Auto Fleet Maintenance Manager: BIANCA NICHOLS ([phone])[facility] ([facility])[address] [place] [address] Creatinine [Mass/Vol] 0.68 mg/dL Normal 0.66-1.25 [facility] Comment on above: Performed By: #### L [id number] ####Auto Fleet Maintenance Manager: BIANCA NICHOLS ([phone])[facility] ([facility])[address] [place] [address] GLOMERULAR FILTRATION RATE ML/MIN/1.73 SQ M.PREDICTED >90.0 Normal >60.0 [facility] Comment on above: Result Comment: Calc ulation based on the Chronic Kidney Disease Epidemiology Collaboration (CKD-EPI) equation refit without adjustment for race Performed By: #### L [id number] ####Auto Fleet Maintenance Manager: BIANCA NICHOLS ([phone])[facility] ([facility])[address] [place] [address] [place] Glucose [Mass/Vol] 172 mg/dL High 70-100 [facility] Comment on above: Performed By: #### L AB15 ####Auto Fleet Maintenance Manager: BIANCA NICHOLS ([phone])[facility])[address] [place] [address] Potassium [Moles/Vol] 4.4 mmol/L Normal 3.5-5.1 [facility] Comment on above: Performed By: #### L AB15 ####Auto Fleet Maintenance Manager: BIANCA NICHOLS ([phone])[facility])[address] [place] [address] Sodium [Moles/Vol] 136 mmol/L Normal 135-145 [facility] Comment on above: Performed By: #### L AB15 ####Auto Fleet Maintenance Manager: BIANCA NICHOLS ([phone])[facility])[address] [place] [address] Urea nitrogen [Mass/Vol] 12 mg/dL Normal 9-20 [facility] Comment on above: Performed By: #### L AB15 ####Auto Fleet Maintenance Manager: BIANCA NICHOLS ([phone])[facility])[address] [place] [address] BC GPC IDon 05-17-2024 GPC ID [id number] Enterococcus sp. Not Detected Listeria spp Not Detected NAAT METHOD Testing was performed using nucleic acid amplification Staphylococcus sp. A DETECTED A Streptococcus spp. Not Detected mecA Not Detected Amrit/vanB Not Detected Coag Negative Staph Normal [facility] Comment on above: Performed By: #### L 501.6710, L101.9900, L100.0500 #### [facility] [address], [place], [address] BLOOD CULTUREon 05-17-2024 Bacteria identified Cx Nom (Bld) BLOOD CULTURE Reference No growth at 5 days ORDER COMMENTS: Blood Collection Site: Left Antecubital [ S = SUSCEPTIBLE R = RESISTANT I = INTERMEDIATE S-DD = Susceptible-dose dependent NS = Non-susceptible NO = No Interpretation ] Normal [facility] Comment on above: Performed By: #### L [id number] ####Auto Fleet Maintenance Manager: BIANCA NICHOLS ([phone])[facility])[address] [place] [address] Bacteria identified Cx Nom (Bld) BLOOD CULTURE Reference No growth at 5 days ORDER COMMENTS: Blood Collection Site: Left Arm [ S = SUSCEPTIBLE R = RESISTANT I = INTERMEDIATE S-DD = Susceptible-dose dependent NS = Non-susceptible NO = No Interpretation ] Normal [facility] Comment on above: Performed By: #### L AB15 #### Auto Fleet Maintenance Manager: BIANCA NICHOLS ([id number]) [facility] ([facility]) [address] [place] [address] Basic metabolic 1998 panelon 05-17-2024 Anion gap [Moles/Vol] 6 mmol/L 3 - 13 mmol/L [facility] Calcium [Mass/Vol] 8.7 mg/dL 8.4 - 10. 4 mg/dL [facility] Chloride [Moles/Vol] 109 mmol/L High 98 - 10 7 mmol/L [facility] CO2 [Moles/Vol] 20 mmol/L Low 22 - 30 mmol/L [facility] Creatinine [Mass/Vol] 0.68 mg/dL 0.66 - 1.25 mg/dL [facility] GFR/1.73 sq M.predicted (S/P/Bld) [Vol rate/Area] - PINF [facility] Comment on above: Calculation based on the Chronic Kidney Disease Epidemiology Collaboration (CKD-EPI) equation refit without adjustment for race Glucose [Mass/Vol] 172 mg/dL High 70 - 100 mg/dL [facility] Interpretation and review of laboratory results Abnormal [facility] Potassium [Moles/Vol] 4.4 mmol/L 3.5 - 5.1 mmol/L [facility] Sodium [Moles/Vol] 136 mmol/L 135 - 145 mmol/L [facility] Urea nitrogen [Mass/Vol] 12 mg/dL 9 - 20 mg/dL [facility] CBC W Auto Differential pane l (Bld)Ordered By: Janice Carey on 05-17-2024 Basophils (Bld) [#/Vol] 0.0 10*3/uL 0.0 - 0.2 10*3/uL [facility] Basophils/100 WBC (Bld) 0.8 % 0.0 - 2.0 % [facility] Eosinophils (Bld) [#/Vol] 0.3 10*3/uL 0.0 - 0.5 10*3/uL [facility] Eosinophils/100 WBC (Bld) 7.4 % High 0.0 - 6.0 % [facility] Erythrocyte distribution width (RBC) [Ratio] 16.8 % High 11.5 - 15.0 % [facility] Hematocrit (Bld) [Volume fraction] 60.0 % High 40.0 - 52.0 % [facility] Hemoglobin (Bld) [Mass/Vol] 19.6 g/dL High 13.0 - 18.0 g/dL [facility] Immature granulocytes (Bld) [#/Vol] 0.0 10*3/uL NINF - 0.1 10*3/uL [facility] Immature granulocytes/100 WBC (Bld) 0.3 % 0.0 - 2.0 % [facility] Interpretation and review of laboratory results Abnormal [facility] Lymphocytes (Bld) [#/Vol] 1.0 10*3/uL 1.0 - 4.3 10*3/uL [facility] Lymphocytes/100 WBC (Bld) 26.9 % 15.0 - 45.0 % [facility] MCH (RBC) [Entitic mass] 30.1 pg 26. 0 - 34.0 pg [facility] MCHC (RBC) [Mass/Vol] 32.7 % 30.5 - 36.0 % [facility] MCV (RBC) [Entitic vol] 92.2 fL 77.0 - 99.0 fL [facility] Monocytes (Bld) [#/Vol] 0.2 10*3/uL 0.0 - 0.9 10*3/uL [facility] Monocytes/100 WBC (Bld) 6.8 % 5.0 - 13.0 % [facility] Neutrophils (Bld) [#/Vol] 2.0 10*3/uL 1.8 - 7.5 10*3/uL [facility] Neutrophils/100 WBC (Bld) 57.8 % 38.0 - 82.0 % [facility] Nucleated RBC/100 WBC (Bld) [Ratio] 0.0 % [facility] Platelet mean volume (Bld) [Entitic vol] 9.9 fL 9.0 - 12.7 fL [facility] Platelets (Bld) [#/Vol] 105 10*3/uL Low 140 - 440 10*3/uL [facility] RBC (Bld) [#/Vol] 6.51 10*6/uL High 4.40 - 5.9 0 10*6/uL [facility] WBC (Bld) [#/Vol] 3.5 10*3/uL Low 3.6 - 10.7 10*3/uL [facility] CBC WITH AUTO DIFFERENTIALon 05-17-2024 Basophils (Bld) [#/Vol] 0.0 10*3/uL Normal 0.0-0.2 [facility] Comment on above: Performed By: #### L [id number] #### Auto Fleet Maintenance Manager: BIANCA NICHOLS ([phone]) [facility] ([facility]) [address] [place] [address] Basophils/100 WBC (Bld) 0.8 % Normal 0.0-2.0 [facility] Comment on above: Performed By: #### L [id number] #### Auto Fleet Maintenance Manager: BIANCA NICHOLS ([phone]) [facility] ([facility]) [address] [place] [address] Eosinophils (Bld) [#/Vol] 0.3 10*3/uL Normal 0.0-0.5 [facility] Comment on above: Performed By: #### L [id number] #### Auto Fleet Maintenance Manager: BIANCA NICHOLS ([phone]) [facility] ([facility]) [address] [place] [address] Eosinophils/100 WBC (Bld) 7.4 % High 0.0-6.0 [facility] Comment on above: Performed By: #### L [id number] #### Auto Fleet Maintenance Manager: BIANCA NICHOLS ([phone]) [facility]) [address] [place] [address] Erythrocyte distribution width (RBC) [Ratio] 16.8 % High 11.5-15.0 [facility] Comment on above: Performed By: #### L [id number] #### Auto Fleet Maintenance Manager: BIANCA NICHOLS ([id number]) [facility]) [address] [place] [address] Hematocrit (Bld) [Volume fraction] 60.0 % High 40.0-52.0 [facility] Comment on above: Performed By: #### L [id number] #### Auto Fleet Maintenance Manager: BIANCA NICHOLS ([phone]) [facility]) [address] [place] [address] Hemoglobin (Bld) [Mass/Vol] 19.6 g/dL High 13.0-18.0 [facility] Comment on above: Performed By: #### L [id number] #### Auto Fleet Maintenance Manager: BIANCA NICHOLS ([phone]) [facility]) [address] [place] [address] IMMATURE GRANS % 0.3 % Normal 0.0-2.0 [facility] Comment on above: Performed By: #### L [id number] #### Auto Fleet Maintenance Manager: BIANCA NICHOLS ([phone]) [facility]) [address] [place] [address] IMMATURE GRANS ABSOLUTE 0.0 10*3/uL Normal <0.1 [facility] Comment on above: Performed By: #### L [id number] #### Auto Fleet Maintenance Manager: BIANCA NICHOLS ([phone]) [facility]) [address] [place] [address] Lymphocytes (Bld) [#/Vol] 1.0 10*3/uL Normal 1.0-4.3 [facility] Comment on above: Performed By: #### L [id number] #### Auto Fleet Maintenance Manager: BIANCA NICHOLS ([phone]) [facility]) [address] [place] [address] Lymphocytes/100 WBC (Bld) 26.9 % Normal 15.0-45.0 [facility] Comment on above: Performed By: #### L [id number] #### Auto Fleet Maintenance Manager: BIANCA NICHOLS ([phone]) [facility]) [address] [place] [address] MCH (RBC) [Entitic mass] 30.1 pg Normal 26.0-34.0 [facility] Comment on above: Performed By: #### L [id number] #### Auto Fleet Maintenance Manager: BIANCA NICHOLS ([phone]) [facility]) [address] [place] [address] MCHC 32.7 % Normal 30.5-36.0 [facility] Comment on above: Performed By: #### L [id number] #### Auto Fleet Maintenance Manager: BIANCA NICHOLS ([id number]) [facility] ([facility]) [address] [place] [address] MCV (RBC) [Entitic vol] 92.2 fL Normal 77.0-99.0 [facility] Comment on above: Performed By: #### L [id number] #### Auto Fleet Maintenance Manager: BIANCA NICHOLS ([phone]) [facility] ([facility]) [address] [place] [address] Monocytes (Bld) [#/Vol] 0.2 10*3/uL Normal 0.0-0.9 [facility] Comment on above: Performed By: #### L [id number] #### Auto Fleet Maintenance Manager: BIANCA NICHOLS ([phone]) [facility] ([facility]) [address] [place] [address] Monocytes/100 WBC (Bld) 6.8 % Normal 5.0-13.0 [facility] Comment on above: Performed By: #### L [id number] #### Auto Fleet Maintenance Manager: BIANCA NICHOLS ([phone]) [facility] ([facility]) [address] [place] [address] NEUTROPHILS ABSOLUTE 2.0 10*3/uL Normal 1.8-7.5 [facility] Comment on above: Performed By: #### L [id number] #### Auto Fleet Maintenance Manager: BIANCA NICHOLS ([phone]) [facility] ([facility]) [address] [place] [address] Neutrophils/100 WBC (Bld) 57.8 % Normal 38.0-82.0 [facility] Comment on above: Performed By: #### L [id number] #### Auto Fleet Maintenance Manager: BIANCA NICHOLS ([phone]) [facility] ([facility]) [address] [place] [address] NRBC 0.0 /100 WBCs Normal 0.0-2.0 [facility] Comment on above: Performed By: #### L [id number] #### Auto Fleet Maintenance Manager: BIANCA NICHOLS ([phone]) [facility]) [address] [place] [address] Platelet mean volume (Bld) [Entitic vol] 9.9 fL Normal 9.0-12.7 [facility] Comment on above: Performed By: #### L [id number] #### Auto Fleet Maintenance Manager: BIANCA NICHOLS ([id number]) [facility] ([facility]) [address] [place] [address] Platelets (Bld) [#/Vol] 105 10*3/uL Low 140-440 [facility] Comment on above: Performed By: #### L [id number] #### Auto Fleet Maintenance Manager: BIANCA NICHOLS ([phone]) [facility] ([facility]) [address] [place] [address] RBC (Bld) [#/Vol] 6.51 10*6/uL High 4.40-5.90 [facility] Comment on above: Performed By: #### L [id number] #### Auto Fleet Maintenance Manager: BIANCA NICHOLS ([phone]) [facility] ([facility]) [address] [place] [address] WBC (Bld) [#/Vol] 3.5 10*3/uL Low 3.6-10.7 [facility] Comment on above: Performed By: #### L [id number] #### Auto Fleet Maintenance Manager: BIANCA NICHOLS ([id number]) [facility] ([facility]) [address] [place] [address] COMPLETE URINALYSISon 2023 BACTERIA (#/HPF) IN URINE Many Abnormal Negative [facility] Comment on above: Performed By: #### L [id number] ####Auto Fleet Maintenance Manager: BIANCA NICHOLS ([phone])[facility] ([facility])[address] [place] [address] BILIRUBIN, TOTAL PRESENCE IN URINE Negative Normal Negative [facility] Comment on above: Performed By: #### L [id number] ####Auto Fleet Maintenance Manager: BIANCA NICHOLS ([phone])[facility] ([facility])[address] [place] [address] Clarity (U) Turbid Abnormal Clear [facility] Comment on above: Performed By: #### L [id number] ####Auto Fleet Maintenance Manager: BIANCA NICHOLS ([phone])[facility])[address] [place] [address] Color (U) Yellow Normal Lt. Yellow [facility] Comment on above: Performed By: #### L [id number] ####Auto Fleet Maintenance Manager: BIANCA NICHOLS ([phone])[facility])[address] [place] [address] GLUCOSE (MG/DL) IN URINE Normal Normal Nor mal (<70) [facility] Comment on above: Performed By: #### L [id number] ####Auto Fleet Maintenance Manager: BIANCA NICHOLS ([phone])[facility] ([facility])[address] [place] [address] HEMOGLOBIN PRESENCE IN URINE 1.0 mg/dL Abnormal Negative [facility] Comment on above: Performed By: #### L [id number] ####Auto Fleet Maintenance Manager: BIANCA NICHOLS ([phone])[facility] ([facility])[address] [place] [address] Ketones Ql (U) Negative Normal Negative [facility] Comment on above: Performed By: #### L [id number] ####Auto Fleet Maintenance Manager: BIANCA NICHOLS ([phone])[facility] ([facility])[address] [place] [address] LEUKOCYTE ESTERASE PRESENCE IN URINE BY TEST STRIP 500 Da/uL Abnormal Negative [facility] Comment on above: Performed By: #### L [id number] ####Auto Fleet Maintenance Manager: BIANCA NICHOLS ([phone])[facility] ([facility])[address] [place] [address] [place] MUCUS (#/LPF) IN URINE SEDIMENT Few Normal Negative [facility] Comment on above: Performed By: #### L [id number] ####Auto Fleet Maintenance Manager: BIANCA NICHOLS ([phone])[facility] ([facility])[address] [place] [address] NITRITE PRESENCE IN URINE Positive Abnormal Negative [facility] Comment on above: Performed By: #### L [id number] ####Auto Fleet Maintenance Manager: BIANCA NICHOLS ([phone])[facility] ([facility])[address] [place] [address] pH (U) 8.0 [pH] Normal 5.0-8.0 [facility] Comment on above: Performed By: #### L [id number] ####Auto Fleet Maintenance Manager: BIANCA NICHOLS ([phone])[facility] ([facility])[address] [place] [address] Protein (U) [Mass/Vol] 100 mg/dL Abnormal Negative [facility] Comment on above: Performed By: #### L [id number] ####Auto Fleet Maintenance Manager: BIANCA NICHOLS ([phone])[facility] ([facility])[address] [place] [address] RBC (#/HPF) IN URINE SEDIMENT 11-25 Abnormal 0-2 [facility] Comment on above: Performed By: #### L [id number] ####Auto Fleet Maintenance Manager: BIANCA NICHOLS ([phone])[facility] ([facility])[address] [place] [address] Specific gravity (U) [Rel density] 1.016 Normal 1.005-1.030 [facility] Comment on above: Performed By: #### L [id number] ####Auto Fleet Maintenance Manager: BIANCA NICHOLS ([phone])[facility] ([facility])[address] [place] [address] [place] SQUAMOUS EPITHELIAL CELLS (#/HPF) IN URINE SEDIMENT Negative Normal 3-5 [facility] Comment on above: Performed By: #### L [id number] ####Auto Fleet Maintenance Manager: BAINCA NICHOLS ([phone])[facility] ([facility])[address] [place] [address] [place] TRIPLE PHOSPHATE CRYSTALS (#/HPF) IN URINE Few Abnormal Negative [facility] Comment on above: Performed By: #### L [id number] ####Auto Fleet Maintenance Manager: BIANCA NICHOLS ([phone])[facility] ([facility])[address] [place] [address] UROBILINOGEN (MG/DL) IN URINE Normal Normal Normal (0-1) [facility] Comment on above: Performed By: #### L [id number] ####Auto Fleet Maintenance Manager: BIANCA GARNERUzma ([phone])[facility] ([facility])[address] [place] [address] WBC (LEUKOCYTE) (#/HPF) IN URINE SEDIMENT >100 Abnormal 0-5 [facility] Comment on above: Performed By: #### L [id number] ####Auto Fleet Maintenance Manager: BIANCA NICHOLS ([phone])[facility] ([facility])[address] [place] [address] ED Provider Noteon ED Provider Note Emergency Department Encounter [facility] EMERGENCY DEPT Patient: Anmol Reynolds : 1960 Date of Evaluation: 05/17/2024 ED Supervising Physician: Rodney Guerrero DO I personally evaluated Anmol Reynolds and made/approved the management plan and take responsibility for the patient management. This will serve as my Supervisory note and shared attestation. I did perform a substantive portion of the visit including all aspects of the Medical Decision Making. I wore appropriate PPE for the entirety of this encounter. In brief, Anmol Reynolds is a 63 y.o. that presents to the emergency department presents to the emergency department with complaints of abnormal blood cultures. Patient is a paraplegic with chronic indwelling catheter. Outpatient blood culture showed gram-positive in clusters thus was sent in for further evaluation management. Patient has no acute complaints at this time Focused exam: On exam, vitals stable. Gen: Nontoxic appearing. Head: NC/AT. CV: RRR. Resp: CTA bilaterally. Abd: Abd soft and notender. Ext: No obvious deformity or abnormalities of bilat UE and LE, Pulses 2+ bilateral UE and LE. Neuro: Baseline LE deficits Skin: No obvious rashes, warm, dry Brief ED course/MDM: Patient with hx of paraplegia, previous sepsis presents to the ED with complaints of abnl blood cultures. Additional information found above and also refer to aaliyah/resident note for further details. On exam, vitals stables. Per above. Otherwise per above Additional information found above and also refer to aaliyah/resident note for further details. With consideration of age, sex/gender, risk factors, to evaluate patient for high risk causes of morbidity and mortality such as, but not limited to, sepsis vs other Today we will obtain labs and imaging We will also provide medical/symptomatic management with zosyn. Discussed plan with patient who agrees with current plan. Diagnostics interpreted by me: Per below I personally discussed the patient's management with other clinicians: None End of visit medical decision making Patient was reassessed. Resting comfortably. No acute distress. Independently reviewed and interpreted the lab results which demonstrated the following: Significant electrolyte abnormalities, leukopenia at 3.5, hemoglobin of 19, UA with signs of cystitis Response to medical management provided in the ED: improving Discussed all results with patient and/or family members. They verbalize understanding. Offered admission for further management. Discussed risks, benefits and alternatives for further management in the hospital. Due to high risk of morbidity and mortality of the stated findings and results, patient will be admitted for further management and care. Patient is agreeable to the plan. Discussed patient, presentation and workup with admitting team. Admitting team is agreeable to current workup and evaluation. They will admit the patient and provide further care. Pending results to be followed by primary admitting team. All diagnostic, treatment, and disposition decisions were made by myself in conjunction with the AALIYAH. For all further details of the patient's emergency department visit, please see their documentation. (Comment: Please note this report has been produced using speech recognition software and may contain errors related to that system including errors in grammar, punctuation, and spelling, as well as words and phrases that may be inappropriate. If there are any questions or concerns please feel free to contact the dictating provider for clarification.) Rodney Guerrero, DO [employer] Rodney Guerrero, DO 05/18/[address] [facility] ED Provider Note EMERGENCY DEPARTMENT ENCOUNTER Pt Name: Anmol Reynolds Birthdate 1960 Date of evaluation: 05/17/2024 ED Provider: Terri Simeon PA-C CHIEF COMPLAINT Chief Complaint Patient presents with Other Abnormal labs, blood cultures has been done to pt in facility, gram + cocci. Had back sx 2 yrs ago that resulted to paraplegia, pt is paralyze from waist down. Afebrile, aox4 HISTORY OF PRESENT ILLNESS (Location/Symptom, Timing/Onset, Context/Setting, Quality, Duration, Modifying Factors, Severity) Note limiting factors. I wore appropriate PPE for the entirety of this encounter. HPI Anmolcorbin Reynolds is a 63 y.o. male who presents to the emergency department for evaluation of positive blood cultures. Patient is paraplegic due to spinal surgery that was done 2 years ago patient was evaluated and admitted on 04/14/2024 was noted to be in septic shock complicated UTI with bacteremia. Blood cultures were positive at that time for Proteus, providencia, morganella patient was treated by ID with PICC line that was placed on 04/20/2024 with ertapenem. Patient had repeat blood cultures that were drawn at facility yesterday 05/13/2024. Pulmonary results are noted to be positive for gram-positive cocci in clusters. Dr. Moyer of infectious disease was consulted at that time and recommended patient come to the hospital for IV antibiotics. Nursing Notes were reviewed. Limitations to history: None Outside historians: None REVIEW OF SYSTEMS Review of Systems 7 systems reviewed, positives and pertinent negatives as per HPI. All other systems were reviewed and are negative. PAST MEDICAL HISTORY Past Medical History: Diagnosis Date Abnormal posture Abscess, perineum Anemia BPH (benign prostatic hyperplasia) Chronic back pain Hematuria Hip sprain Hyperlipidemia Hypertension Major depressive disorder, single episode, unspecified MRSA (methicillin resistant staph aureus) culture positive spine 2021 Muscle wasting and atrophy, not elsewhere classified, left lower leg Muscle weakness (generalized) Neuropathy Obstructive and reflux uropathy, unspecified Osteoarthritis Other abnormalities of gait and mobility Other reduced mobility Paraplegia (HCC) Sciatica Spinal stenosis of lumbar region with neurogenic claudication Type 2 diabetes mellitus without complication (CMS/HCC) (HCC) Urinary calculus, unspecified UTI (urinary tract infection) SURGICAL HISTORY Past Surgical History: Procedure Laterality Date ANKLE SURGERY Right He has a titanium plate to the right ankle KNEE SURGERY Left ACL KNEE SURGERY Left removal of screw LAMINECTOMY Left 10/24/2020 LEFT BILATERAL L2-3-4-5 DECOMPRESSION performed by Opal Vigil MD at [facility] OR ORTHOPEDIC SURGERY Right removal of hardware ankle US PLACE URETAL STENT PERC PRE-EXIST TRACT S&I (HISTORICAL) Bilateral 04/14/2024 Dr. Patel/Bashir CURRENT MEDICATIONS Previous Medications ACETAMINOPHEN (TYLENOL) 325 MG TABLET Take 650 mg by mouth every 6 hours as needed. For elevated temp and/or pain. Do not exceed 3 grams in 24 hour period. ACETIC ACID 0.25 % IRRIGATION ALOGLIPTIN (NESINA) 25 MG TABLET daily. ASPIRIN 81 MG EC TABLET Take 81 mg by mouth daily. BISACODYL (DULCOLAX) 5 MG EC TABLET Take 5 mg by mouth Daily as needed for constipation. Do not crush, chew, or split. BISACODYL (DULCOLAX) 5 MG SPLIT SUPPOSITORY Insert into the rectum Daily as needed. CALCIUM CARBONATE (TUMS) 500 MG CHEWABLE TABLET 1,000 mg every 8 hours as needed for indigestion or heartburn. CLOTRIMAZOLE-BETAMETH ASONE (LOTRISONE) CREAM CYCLOBENZAPRINE (FLEXERIL) 10 MG TABLET Take 10 mg by mouth 3 times daily as needed for muscle spasms. DOCUSATE SODIUM (COLACE) 100 MG TABLET Take 100 mg by mouth 2 times daily. FERROUS SULFATE 325 (65 FE) MG TABLET Take 325 mg by mouth daily (with breakfast). HYDROMORPHONE (DILAUDID) 4 MG TABLET Take by mouth every 4 hours as needed for severe pain (7-10). For pain 3-10/10 HYPROMELLOSE (PURE & GENTLE LUBRICANT) 0.3 % SOLUTION Administer 1 drop into affected eye(s) if needed. INSULIN GLARGINE (LANTUS) 100 UNIT/ML PEN Inject 45 Units under the skin every morning. INSULIN LISPRO (HUMALOG) 100 UNIT/ML SOLUTION INJECTION Inject 0-28 Units under the skin. 0-160=0 units; 161-200=14 units, 201-250=18 units, 251-300=20 units 301-350=22 units, 351-400=28 units, 401 or higher give 28 units and call physician. MAGNESIUM HYDROXIDE (MILK OF MAGNESIA PO) Take 30 mL by mouth Daily as needed. MIRTAZAPINE (REMERON) 7.5 MG TABLET Take 7.5 mg by mouth Nightly. MULTIPLE VITAMIN (MULTIVITAMIN) CAPSULE Take 1 capsule by mouth daily. NALOXONE (NARCAN) 4 MG/0.1 ML NASAL SPRAY OXYCODONE ER (OXYCONTIN) 15 MG 12 HR TABLET Do not crush, chew, or split. POLYETHYLENE GLYCOL, PEG, 3350 (MIRALAX) 17 G PACKET Take 17 g by mouth in the morning and 17 g in the evening. POTASSIUM CHLORIDE CR (KL (more content not included)... Normal [facility] LACTIC ACID WITH REFLEXon Lactate [Moles/Vol] 1.4 mmol/L Normal 0.7-2.0 [facility] Comment on above: Performed By: #### L [id number] #### Auto Fleet Maintenance Manager: BIANCA NICHOLS ([id number]) [facility] ([facility]) [address] [place] [address] Laboratory - Chemistry and C hemistry - challengeon 05-17-2024 Lactate [Moles/Vol] 1.4 mmol/L 0.7 - 2. 0 mmol/L [facility] No Panel Informationon 05-17 Interpretation and review of laboratory results Normal [facility] URINE CULTUREon 05-17-2024 Bacteria identified Cx Nom (U) URINE CULTURE (A) Reference PROTEUS MIRABILIS >100,000 CFU/mL Proteus mirabilis (A) For identification and/or sensitivity, refer to culture collected on: 05/18/2024 at 0016 ([id number]). [ S = SUSCEPTIBLE R = RESISTANT I = INTERMEDIATE S-DD = Susceptible-dose dependent NS = Non-susceptible NO = No Interpretation ] Normal [facility] Comment on above: Performed By: #### L [id number] #### Auto Fleet Maintenance Manager: BIANCA NICHOLS ([id number]) [facility] [address] [place] [address] Urinalysis complete panel (U )Ordered By: Madison Novak on 05-17-2024 Bacteria LM.HPF (Urine sed) [#/Area] Many Abnormal Negative /HPF [facility] Bilirubin Ql (U) Negative Negative mg/dL [facility] Clarity (U) Turbid Abnormal Clear [facility] Color (U) Yellow Lt. Yellow [facility] Epithelial cells.squamous LM.HPF (Urine sed) [#/Area] Negative [facility] Healt h Glucose Ql (U) Normal Normal (<70) mg/dL [facility] Hemoglobin Ql (U) 1.0 mg/dL Abnormal Negative [facility] Interpretation and review of laboratory results Abnormal [facility] Ketones (U) [Mass/Vol] Negative Negat mary grace mg/dL [facility] Leukocyte esterase Test strip Ql (U) 500 Abnormal Negative Da/uL [facility] Mucus LM.HPF (Urine sed) [#/Area] Few Negative /LPF [facility] Nitrite Ql (U) Positive Abnormal Negative [facility] th pH (U) 8.0 [pH] 5.0 - 8.0 pH [facility] Protein (U) [Mass/Vol] 100 mg/dL Abnormal Negative [facility] RBC LM.HPF (Urine sed) [#/Area] 11-25 Abnormal [facility] Specific gravity (U) [Rel density] 1.016 1.005 - 1.030 [facility] Triple phosphate crystals LM.HPF (Urine sed) [#/Area] Few Abnormal Negative /HPF [facility] Urobilinogen (U) [Mass/Vol] Normal Normal (0-1) mg/dL [facility] WBC LM.HPF (Urine sed) [#/Area] /[HPF] Abnormal [facility] Progress Noteson 05-15-2024 Phlebotomist Lab Assistant Authentication Interface Message Text HISTORY OF PRESENT ILLNESS ----- Pharmaceutical Sales Representative: not needed - patient preferred language is Armenian. HIPAA: Verbal permission granted from patient to discuss case, including protected health information, in front of family / friends in room at the time of the evaluation. Anmol Reynolds is a very pleasant 63 year old male here as new patient for a second opinion of MRI results. In 2019, pt had his first back surgery performed by [facility] which was an interbody fusion. 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 At that point, the hospital took the hardware out and did not replace it with the goal of treating the infection. 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 After the infection was treated, [facility] extended his fusion, decompressed the back, and replaced all hardware. At that time he lost all motor and sensation to his lower extremities. He is now in a motorized chair. He gets some hip flexion by using his abdominal muscles. He has a full catheter and no sensation per pt. Recently, he was seen by Dr. Pierre who obtained an MRI and he would like my opinion on the results. REVIEW OF SYSTEMS The following systems were reviewed and are negative except as noted above and per scanned intake form: Constitutional, Eye, ENT, Cardiovascular, Respiratory, GI, , Musculoskeletal, Skin, Neurologic (No bowel/bladder incontinence, gait instability, or hand dexterity issues), Endocrine, Hematology/Lymphatic and Allergic/Immunologic PAST HISTORY -- Past Medical History: No past medical history on file. Past Surgical History: There is no previous surgical history on file. Social History: Social History Socioeconomic History Marital status: Unknown Social Determinants of Health Financial Resource Strain: Low Risk (04/24/2023) Received from [facility] Overall Financial [facility] Strain [facility] Difficulty of Paying Living Expenses: Not hard at all Food Insecurity: No Food Insecurity (05/05/2024) Received from [facility] Hunger Vital Sign Worried About Running Out of Food in the Last Year: Never true Ran Out of Food in the Last Year: Never true Transportation Needs: No Transportation Needs (05/05/2024) Received from [facility] PRAPARE - Transportation Lack of Transportation (Medical): No Lack of Transportation (Non-Medical): No Intimate Partner Violence: Not At Risk (05/05/2024) Received from [facility] Humiliation, Afraid, Rape, and Kick questionnaire Fear of Current or Ex-Partner: No Emotionally Abused: No Physically Abused: No Sexually Abused: No Family History: No family history on file. Medications: The patient's home medications have been reviewed. Allergies: Patient has no known allergies. PHYSICAL EXAM Constitutional: Awake AND alert. No distress. Head: Atraumatic. Eyes: No scleral icterus. ENT: Normal external inspection. Airway patent. Neck: Supple. No cervical midline bony tenderness, deformities, or step-offs. Cardiovascular: Equal pulses. Well perfused. Pulmonary/Chest: No respiratory distress. Abdominal: Non-distended. Musculoskeletal: No peripheral edema. Back: No midline bony tenderness, deformities, or step-offs of the thoracic, lumbar, and sacral spine. No abrasions or bruising. No erythema, induration or fluctuance. Skin: Normal color. Neurological: Alert, awake, and appropriate. 5/5 strength bilateral upper and lower extremities. No myelopathic reflexes. No sensory deficits to light touch. DTR's 2+ and equal. Normal gait. 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 There are also sacral insufficiency fractures. MR L-SPINE W/+W/O on 04/05/2024 showed a healing fusion construct with screws at T12-L1 and L4-5. There is some slight lordosis. There is some haloing around the L5 screws. There are also sacral insufficiency fractures. ASSESSMENT AND PLAN Sacral insufficiency fracture, initial encounter Today the patient and I discussed the nature and progression of their condition. We reviewed his recent xray which does show what appears to be a healing fusion construct with screws at T12-L1, skipping up L2-3 and screws at L4-5. He has an interbody fusion at L3-4 that looks like it's healed with some slight lordosis almost like PSO. There is some haloing around the L5 screws but I would not be concerned about lack of heal (more content not included)... Normal [facility] 36on 05-13-2024 36 Call received back from nurse Packer who states blooc cultures were missed, but she will have them done on Thursday when the lab come back to the facility. Normal [facility] 36 Called and spoke to nurse Packer at [facility] to obtain blood culture results that were ordered to be done on 05/06/24. She did state she cannot tell if they were done, she will call their lab and have the results faxed to us. If they were not done, she will have them obtained. I did ask that she please let us know what the outcome it. Normal [facility] XR SACRUM-COCCYX 3 VIEWSon 0 05-12-2024 XR SACRUM-COCCYX 3 VIEWS EXAMINATION: XR SACRUM-COCCYX 3 VIEWS 05/11/2024 02:07 PM CLINICAL HISTORY: fx ASSOCIATED DIAGNOSIS: Sacral insufficiency fracture, initial encounter ORDERING PROVIDER: BERNA JOHNSON TECHNOLOGISTS NOTE: COMPARISON: None Findings Osteopenia of coccyx is noted. Overlying bowel gas and soft tissue defect obscure the details. Deformity is noted at sacrococcygeal junction from remote trauma. Healing insufficiency fracture is not excluded. Lumbar fusion is partially included. Bilateral ureteric stents are demonstrated. Catheter is noted in the region of urinary bladder. Degenerative changes are noted in the hips with heterotopic bone adjacent the left acetabulum, partially included in this exam. Impression: Osteopenia is noted. Degenerative changes and heterotopic bone formation along the left hip is partially included. Healing stress fracture or degenerative process at the sacrococcygeal junction is considered. Ureteral stents are noted. MACRO: None Normal [facility] XR SCOLIOSIS PA + LAT 2 OR 3 VIEWSon 05-12-2024 XR SCOLIOSIS PA + LAT 2 OR 3 VIEWS EXAMINATION: XR SCOLIOSIS PA + LAT 2 OR 3 VIEWS 05/11/2024 04:02 PM CLINICAL HISTORY: upright scoli - [place] ASSOCIATED DIAGNOSIS: Sacral insufficiency fracture, initial encounter ORDERING PROVIDER: OTIS MEJIA TECHNOLOGISTS NOTE: Best possible - Upright in chair, right lateral due to limitations of room layout and equipment COMPARISON: None FINDINGS: Dextroscoliosis of thoracic spine is noted. [place] angle measures 10.0 degrees. [place] is at T8 level. Fusion of lumbar spine is noted with hardware extending from L1 to L5. Disc spacer is noted between L2-L3. L2-L3 disc space is obliterated with disc spacer. Ureteric stents are noted bilaterally. Generalized osteopenia is noted with chronic wedging of multiple vertebrae. IMPRESSION: Dextroscoliosis of thoracic spine. Lumbosacral fusion with degenerative facet arthropathy and fusion of L2-L3 segments. MACRO: None Normal [facility] XR Sacrum and Coccyx Viewson 05-12-2024 EXAMINATION: XR SACRUM-COCCYX 3 VIEWS 05/11/2024 02:07 PM CLINICAL HISTORY: fx ASSOCIATED DIAGNOSIS: Sacral insufficiency fracture, initial encounter ORDERING PROVIDER: BERNA JOHNSON TECHNJUNIE NOTE: COMPARISON: None Findings Osteopenia of coccyx is noted. Overlying bowel gas and soft tissue defect obscure the details. Deformity is noted at sacrococcygeal junction from remote trauma. Healing insufficiency fracture is not excluded. Lumbar fusion is partially included. Bilateral ureteric stents are demonstrated. Catheter is noted in the region of urinary bladder. Degenerative changes are noted in the hips with heterotopic bone adjacent the left acetabulum, partially included in this exam. Impression: Osteopenia is noted. Degenerative changes and heterotopic bone formation along the left hip is partially included. Healing stress fracture or degenerative process at the sacrococcygeal junction is considered. Ureteral stents are noted. MACRO: None RADIOLOGY Juan William MD - 05/12/2024 EXAMINATION: XR SACRUM-COCCYX 3 VIEWS 05/11/2024 02:07 PM CLINICAL HISTORY: fx ASSOCIATED DIAGNOSIS: Sacral insufficiency fracture, initial encounter ORDERING PROVIDER: BERNA JOHNSON TECHNOLOGISTS NOTE: COMPARISON: None Findings Osteopenia of coccyx is noted. Overlying bowel gas and soft tissue defect obscure the details. Deformity is noted at sacrococcygeal junction from remote trauma. Healing insufficiency fracture is not excluded. Lumbar fusion is partially included. Bilateral ureteric stents are demonstrated. Catheter is noted in the region of urinary bladder. Degenerative changes are noted in the hips with heterotopic bone adjacent the left acetabulum, partially included in this exam. Impression: Osteopenia is noted. Degenerative changes and heterotopic bone formation along the left hip is partially included. Healing stress fracture or degenerative process at the sacrococcygeal junction is considered. Ureteral stents are noted. MACRO: None [facility] XR Sacrum and Coccyx ViewsOr dered By: Juan William on 05-12-2024 Globial Work Phone: XR Thoracic and lumbar spine 2 Views for scoliosison 05-12-2024 EXAMINATION: XR SCOLIOSIS PA + LAT 2 OR 3 VIEWS 05/11/2024 04:02 PM CLINICAL HISTORY: upright scoli - [place] ASSOCIATED DIAGNOSIS: Sacral insufficiency fracture, initial encounter ORDERING PROVIDER: OTIS MEJIA TECHNOLOGISTS NOTE: Best possible - Upright in chair, right lateral due to limitations of room layout and equipment COMPARISON: None FINDINGS: Dextroscoliosis of thoracic spine is noted. [place] angle measures 10.0 degrees. [place] is at T8 level. Fusion of lumbar spine is noted with hardware extending from L1 to L5. Disc spacer is noted between L2-L3. L2-L3 disc space is obliterated with disc spacer. Ureteric stents are noted bilaterally. Generalized osteopenia is noted with chronic wedging of multiple vertebrae. IMPRESSION: Dextroscoliosis of thoracic spine. Lumbosacral fusion with degenerative facet arthropathy and fusion of L2-L3 segments. MACRO: None RADIOLOGY Juan William MD - 05/12/2024 EXAMINATION: XR SCOLIOSIS PA + LAT 2 OR 3 VIEWS 05/11/2024 04:02 PM CLINICAL HISTORY: upright scoli - [place] ASSOCIATED DIAGNOSIS: Sacral insufficiency fracture, initial encounter ORDERING PROVIDER: OTIS MEJIA TECHNOLOGISTS NOTE: Best possible - Upright in chair, right lateral due to limitations of room layout and equipment COMPARISON: None FINDINGS: Dextroscoliosis of thoracic spine is noted. [place] angle measures 10.0 degrees. [place] is at T8 level. Fusion of lumbar spine is noted with hardware extending from L1 to L5. Disc spacer is noted between L2-L3. L2-L3 disc space is obliterated with disc spacer. Ureteric stents are noted bilaterally. Generalized osteopenia is noted with chronic wedging of multiple vertebrae. IMPRESSION: Dextroscoliosis of thoracic spine. Lumbosacral fusion with degenerative facet arthropathy and fusion of L2-L3 segments. MACRO: None [facility] XR Sacrum and Coccyx Viewson 05-11-2024 Radiology Study observation (narrative) [facility] XR Thoracic and lumbar spine 2 Views for scoliosison 05-11-2024 Radiology Study observation (narrative) [facility] Telephone Encounteron 2023 Phlebotomist Lab Assistant Authentication Interface Message Text Pt calling requesting provider to follow up regarding MRI. Pt was unable to provide telephone, address or SSN. No information was provided at this time. Normal [facility] 36on 05-09-2024 36 Nahun nurse from care home was given verbatim per Dr. Coates. Nahun voiced understanding. Normal [facility] [address] Montano he rec add cipro to his regimen. Pt in nurse home Please have them add cipro 500mg bid for 10 days Normal [facility] Basic Metabolic Profile (BMP )on 05-09-2024 BUN/CRE 19.7 RATIO Normal 10-20 [facility] Comment on above: Order Comment: 313.2 Performed By: #### L 500.2500, L100.0500 #### [facility] [address] [place], [place], [id number] (366 CA,Total 8.5 mg/dL Normal 8.5-10.1 [facility] Comment on above: Order Comment: 313.2 Performed By: #### L 500.2500, L100.0500 #### [facility] [address] [place], [address] Chloride [Moles/Vol] 107 mmol/L Normal 98-107 [facility] Comment on above: Order Comment: 313.2 Performed By: #### L 500.2500, L100.0500 #### [facility] [address] [place], [address] CO2 [Moles/Vol] 25.0 mmol/L Normal 21.0-32.0 [facility] Comment on above: Order Comment: 313.2 Performed By: #### L 500.2500, L100.0500 #### [facility] [address] [place], [address] Creatinine [Mass/Vol] 0.61 mg/dL Low 0.70-1.30 [facility] Comment on above: Order Comment: 313.2 Result Comment: The validity of the calculated GFR GFRAA in patients over 70 years has not been determined. Clinical correlation is essential. Performed By: #### L 500.2500, L100.0500 #### [facility] [address] [place], [address] EST GFR - AA 172 mL/min Normal >60 [facility] Comment on above: Order Comment: 313.2 Result Comment: Afri can Iranian GFR Calc Performed By: #### L 500.2500, L100.0500 #### [facility] [address] [place], [address] GAP 6 Normal 5-15 [facility] Comment on above: Order Comment: 313.2 Performed By: #### L 500.2500, L100.0500 #### [facility] [address] [place], [address] GFR/1.73 sq M.predicted among non-blacks MDRD (S/P/Bld) [Vol rate/Area] 142 mL/min/{1.73_m2} Normal >60 [facility] Comment on above: Order Comment: 313.2 Result Comment: Non- GFR Calc Performed By: #### L 500.2500, L100.0500 #### [facility] [address] [place], [address] Glucose [Mass/Vol] 158 mg/dL High 74-106 [facility] Comment on above: Order Comment: 313.2 Result Comment: Fast ing Glucose result greater than or equal to 126 mg/dL suggests DIABETES MELLITUS per A.D.A. criteria. Performed By: #### L 500.2500, L100.0500 #### [facility] [address] [place], [address] Potassium [Moles/Vol] 3.8 mmol/L Normal 3.5-5.1 [facility] Comment on above: Order Comment: 313.2 Performed By: #### L 500.2500, L100.0500 #### [facility] [address] [place], [address] Sodium [Moles/Vol] 138 mmol/L Normal 136-145 [facility] Comment on above: Order Comment: 313.2 Performed By: #### L 500.2500, L100.0500 #### [facility] [address] [place], [address] Urea nitrogen [Mass/Vol] 12 mg/dL Normal 7-18 [facility] Comment on above: Order Comment: 313.2 Performed By: #### L 500.2500, L100.0500 #### [facility] [address] [place], [address] CBC-Complete Blood Cnt No Di ffon 05-09-2024 Erythrocyte distribution width (RBC) [Ratio] 14.7 % High 11.6-14.6 [facility] Comment on above: Order Comment: 313.2 Performed By: #### L 500.2500, L100.0500 #### [facility] [address] [place], [address] Hematocrit (Bld) [Volume fraction] 36.6 % Low 40-54 [facility] Comment on above: Order Comment: 313.2 Performed By: #### L 500.2500, L100.0500 #### [facility] [address] [place], [address] Hemoglobin (Bld) [Mass/Vol] 11.7 g/dL Low 13.0-16.5 [facility] Comment on above: Order Comment: 313.2 Performed By: #### L 500.2500, L100.0500 #### [facility] [address] [place], [address] MCH (RBC) [Entitic mass] 29.9 pg Normal 27.0-32.0 [facility] Comment on above: Order Comment: 313.2 Performed By: #### L 500.2500, L100.0500 #### [facility] [address] [place], [address] MCHC (RBC) [Mass/Vol] 32.0 g/dL Normal 32-36 [facility] Comment on above: Order Comment: 313.2 Performed By: #### L 500.2500, L100.0500 #### [facility] [address] [place], [address] MCV (RBC) [Entitic vol] 93.6 fL Normal 80-[address] [facility] Comment on above: Order Comment: 313.2 Performed By: #### L 500.2500, L100.0500 #### [facility] [address] [place], [address] Platelet mean volume (Bld) [Entitic vol] 11.3 fL Normal 6.2-12.0 [facility] Comment on above: Order Comment: 313.2 Performed By: #### L 500.2500, L100.0500 #### [facility] [address] [place], [address] Platelets (Bld) [#/Vol] 264 10*3/uL Normal 150-450 [facility] Comment on above: Order Comment: 313.2 Performed By: #### L 500.2500, L100.0500 #### [facility] [address] [place], [address] RBC (Bld) [#/Vol] 3.91 10*6/uL Low 4.6-6.2 [facility] Comment on above: Order Comment: 313.2 Performed By: #### L 500.2500, L100.0500 #### [facility] [address] [place], [address] RDW SD 50.4 fl High 35.1-43.9 [facility] Comment on above: Order Comment: 313.2 Performed By: #### L 500.2500, L100.0500 #### [facility] [address] [place], [address] WBC (Bld) [#/Vol] 6.8 10*3/uL Normal 4.4-11.0 [facility] Comment on above: Order Comment: 313.2 Performed By: #### L 500.2500, L100.0500 #### [facility] [facility] [address] [place], [address] 36on 05-06-2024 36 He had laser of a large bladder stone left ureteroscopy and bilateral stent change. He needs to follow-up in 2-4 weeks for cystoscopy left stent removal right ureteroscopy possible laser lithotripsy possible right stent removal possible right stent change Normal [facility] BASIC METABOLIC PANELon 08-0 Anion gap [Moles/Vol] 8 mmol/L Normal 3-13 [facility] Comment on above: Performed By: #### L [id number] #### Auto Fleet Maintenance Manager: BIANCA NICHOLS ([id number]) [facility] ([facility]) [address] [place] [address] [place] Calcium [Mass/Vol] 8.4 mg/dL Normal 8.4-10.4 [facility] Comment on above: Performed By: #### L [id number] #### Auto Fleet Maintenance Manager: BIANCA NICHOLS ([id number]) [facility] ([facility]) [address] [place] [address] [place] Chloride [Moles/Vol] 105 mmol/L Normal 98-107 [facility] Comment on above: Performed By: #### L [id number] #### Auto Fleet Maintenance Manager: BIANCA NICHOLS ([id number]) [facility] ([facility]) [address] [place] [address] CO2 [Moles/Vol] 23 mmol/L Normal 22-30 [facility] Comment on above: Performed By: #### L [id number] #### Auto Fleet Maintenance Manager: BIANCA NICHOLS ([id number]) [facility] ([facility]) [address] [place] [address] Creatinine [Mass/Vol] 0.62 mg/dL Low 0.66-1.25 [facility] Comment on above: Performed By: #### L [id number] #### Auto Fleet Maintenance Manager: BIANCA NICHOLS ([id number]) [facility] ([facility]) [address] [place] [address] GLOMERULAR FILTRATION RATE ML/MIN/1.73 SQ M.PREDICTED >90.0 Normal >60.0 [facility] Comment on above: Result Comment: Calc ulation based on the Chronic Kidney Disease Epidemiology Collaboration (CKD-EPI) equation refit without adjustment for race Performed By: #### L [id number] #### Auto Fleet Maintenance Manager: BIANCA NICHOLS ([id number]) [facility] ([facility]) [address] [place] [address] Glucose [Mass/Vol] 416 mg/dL High 70-100 [facility] Comment on above: Performed By: #### L [id number] #### Auto Fleet Maintenance Manager: BIANCA NICHOLS ([id number]) [facility] ([facility]) [address] [place] [address] [place] Potassium [Moles/Vol] 4.1 mmol/L Normal 3.5-5.1 [facility] Comment on above: Performed By: #### L [id number] #### Auto Fleet Maintenance Manager: BIANCA NICHOLS ([id number]) [facility] ([facility]) [address] [place] [address] Sodium [Moles/Vol] 136 mmol/L Normal 135-145 [facility] Comment on above: Performed By: #### L [id number] #### Auto Fleet Maintenance Manager: BIANCA NICHOLS ([id number]) [facility] ([facility]) [address] [place] [address] Urea nitrogen [Mass/Vol] 14 mg/dL Normal 9-20 [facility] Comment on above: Performed By: #### L [id number] #### Auto Fleet Maintenance Manager: BIANCA NICHOLS ([id number]) [facility] [address] [place] [address] Basic metabolic 1998 panelon 05-06-2024 Anion gap [Moles/Vol] 8 mmol/L 3 - 13 mmol/L [facility] Calcium [Mass/Vol] 8.4 mg/dL 8.4 - 10. 4 mg/dL [facility] Chloride [Moles/Vol] 105 mmol/L 98 - 10 7 mmol/L [facility] CO2 [Moles/Vol] 23 mmol/L 22 - 30 mmol/L [facility] Creatinine [Mass/Vol] 0.62 mg/dL Low 0.66 - 1.25 mg/dL [facility] GFR/1.73 sq M.predicted (S/P/Bld) [Vol rate/Area] - PINF [facility] Comment on above: Calculation based on the Chronic Kidney Disease Epidemiology Collaboration (CKD-EPI) equation refit without adjustment for race Glucose [Mass/Vol] 416 mg/dL High 70 - 100 mg/dL [facility] Interpretation and review of laboratory results Abnormal [facility] Potassium [Moles/Vol] 4.1 mmol/L 3.5 - 5.1 mmol/L [facility] Sodium [Moles/Vol] 136 mmol/L 135 - 145 mmol/L [facility] Urea nitrogen [Mass/Vol] 14 mg/dL 9 - 20 mg/dL [facility] CARECOORDon 05-06-2024 [place] Next Site of Care Admission Date: 05/05/2024 10:36 AM Patient Name: ANMOL REYNOLDS Location: [id number] A Date of : 1960 ------- Placement Information ------- Referral Type:Skilled Nursing/SNF - Return Referral ID:[id number] Provider Name:[place] [facility] Address 1:[address] [place] [address] Address 2: City:[place] Selection Factors:Patient/Famil y Choice [place] [facility] [place] Addendum to earlier note: Pt to be discharged (returned) back to [facility]. Bedside RN aware, SW aware and will plan transport. [facility] [place] Care Managment Initial Assessment Date: 05/06/2024 Patient Name: Anmol Reynolds : 1960 Patient Information Source of Information: Patient Cognition/Language: WFL - Within Functional Limits Permission given to speak with patient pharmaceutical sales representative/caregi crystal as indicated: Confirmation of Payer with patient/family: Yes Payer Name: Medicare A/B [place]: No Confirmation of Primary Care Physician: Confirmed PCP Name: Ambrosio Monroy, DO Seen in last 2 years?: Yes Primary Caregiver: Self If assistance needed, confirmed caregiver ready, willing and able to care for patient at discharge: Confirmed with: Living Arrangements Current Residence: Number of Floors Number of Entry Steps: Bed/Bath Levels: Facility: Nursing Facility Skilled Facility Name: [facility] Plan to Return: Yes Lives with: Other (Comment) ([facility]) Support Systems: Parent, Family members, Friends/neighbors Activities of Daily Living Ambulation: Total Care Bathing/Dressing: Assistance Elimination/Continenc e/Toileting: Total Care Feeding: Independent Who Assists with Activities of Daily Living: Snf Staff Instrumental Activities of Daily Living Prescription Coverage: Yes Pharmacy Used: snf Medication Management: Transportation/Shoppi ng: Assistance Provider Transportation Mode: Payer provided transport service Needs Assistance with Transportation at Discharge: Yes Meal Preparation: Assistance Provider Meal Prep Assistance Provider Name: SNF Laundry/Cleaning: Assistance Provider Laundry/Cleaning Assistance Provider Name: [facility] Finances/Bill Paying: Independent Communication: Independent Types of Care Services/Equipment Utilized Care Services: Dialysis Type: Durable Medical Equipment: Wheelchair (standard or power), Hospital Bed, Other (Comment) DME Provider: Santana catheter (chronic) Patient's Goal/Discharge Plan Patient expects to be discharged to: Return to [facility] Discharge Planning Actions: Chcf Facility referral indicated Aguilar of choice: Aguilar of choice discussed Patient's Choice Rights and [employer] and Collaborative Relationships Disclosed as Indicated for Post-Acute Care: Interdisciplinary Team Engagement: Social Work Referral for: Additional Information: 63 yo male assigned to post procedure recovery status for surgery 05/05/24: Laser Lithotripsy and bilateral ureteral stent exchange. Pt with hx of paraplegia, neuropathy , DM and chronic pain underwent surgery for kidney stones bilaterally. Pt is from [facility] and is agreeable to return. Pt states his mother is across the [place] from him. He has a chronic santana and R picc in place. On iv ceftriaxone. Regular diet. Pt had PT eval ordered. Met with pt at bedside; explained role of tcc. Pt wanting to return to [facility] Has chronic santana catheter. He has an electric w/c. Anticipate discharge (return) to [facility] today if medically stable. Anel Lima RN Normal [facility] CBC (HEMOGRAM)on 05-06-2024 Erythrocyte distribution width (RBC) [Ratio] 14.5 % Normal 11.5-15.0 [facility] Comment on above: Performed By: #### L [id number] #### Auto Fleet Maintenance Manager: BIANCA NICHOLS ([id number]) [facility]) [address] [place] [address] Hematocrit (Bld) [Volume fraction] 36.0 % Low 40.0-52.0 [facility] Comment on above: Performed By: #### L [id number] #### Auto Fleet Maintenance Manager: BIANCA NICHOLS ([id number]) [facility]) [address] [place] [address] Hemoglobin (Bld) [Mass/Vol] 12.1 g/dL Low 13.0-18.0 [facility] Comment on above: Performed By: #### L [id number] #### Auto Fleet Maintenance Manager: BIANCA NICHOLS ([id number]) [facility]) [address] [place] [address] MCH (RBC) [Entitic mass] 30.3 pg Normal 26.0-34.0 [facility] Comment on above: Performed By: #### L [id number] #### Auto Fleet Maintenance Manager: BIANCA NICHOLS ([id number]) [facility]) [address] [place] [address] MCHC 33.6 % Normal 30.5-36.0 [facility] Comment on above: Performed By: #### L [id number] #### Auto Fleet Maintenance Manager: BIANCA NICHOLS ([id number]) [facility]) [address] [place] [address] MCV (RBC) [Entitic vol] 90.2 fL Normal 77.0-99.0 [facility] Comment on above: Performed By: #### L [id number] #### Auto Fleet Maintenance Manager: BIANCA NICHOLS ([id number]) [facility] [address] [place] [address] Platelet mean volume (Bld) [Entitic vol] 10.8 fL Normal 9.0-12.7 [facility] Comment on above: Performed By: #### L [id number] #### Auto Fleet Maintenance Manager: BIANCA NICHOLS ([id number]) [facility] ([facility]) [address] [place] [address] Platelets (Bld) [#/Vol] 273 10*3/uL Normal 140-440 [facility] Comment on above: Performed By: #### L [id number] #### Auto Fleet Maintenance Manager: BIANCA NICHOLS ([id number]) [facility] ([facility]) [address] [place] [address] RBC (Bld) [#/Vol] 3.99 10*6/uL Low 4.40-5.90 [facility] Comment on above: Performed By: #### L [id number] #### Auto Fleet Maintenance Manager: BIANCA NICHOLS ([id number]) [facility] ([facility]) [address] [place] [address] WBC (Bld) [#/Vol] 6.8 10*3/uL Normal 3.6-10.7 [facility] Comment on above: Performed By: #### L [id number] #### Auto Fleet Maintenance Manager: BIANCA NICHOLS ([id number]) [facility] ([facility]) [address] [place] [address] CBC panel Auto (Bld)on 05-06 Erythrocyte distribution width (RBC) [Ratio] 14.5 % 11.5 - 15.0 % [facility] Hematocrit (Bld) [Volume fraction] 36.0 % Low 40.0 - 52.0 % [facility] Hemoglobin (Bld) [Mass/Vol] 12.1 g/dL Low 13.0 - 18.0 g/dL [facility] Interpretation and review of laboratory results Abnormal [facility] MCH (RBC) [Entitic mass] 30.3 pg 26. 0 - 34.0 pg [facility] MCHC (RBC) [Mass/Vol] 33.6 % 30.5 - 36.0 % [facility] MCV (RBC) [Entitic vol] 90.2 fL 77.0 - 99.0 fL [facility] Platelet mean volume (Bld) [Entitic vol] 10.8 fL 9.0 - 12.7 fL [facility] Platelets (Bld) [#/Vol] 273 10*3/uL 140 - 440 10*3/uL [facility] RBC (Bld) [#/Vol] 3.99 10*6/uL Low 4.40 - 5.9 0 10*6/uL [facility] WBC (Bld) [#/Vol] 6.8 10*3/uL 3.6 - 10.7 10*3/uL [facility] - Chemistry and C hemistry - challengeon 05-06-2024 Glucose [Mass/Vol] 260 mg/dL High 70 - 100 mg/dL [facility] Glucose [Mass/Vol] 428 mg/dL High 70 - 100 mg/dL [facility] Glucose [Mass/Vol] 359 mg/dL High 70 - 100 mg/dL [facility] No Panel Informationon 05-06 Interpretation and review of laboratory results Abnormal [facility] Performed by: [facility], [address] [place] [address] CLIA ID: [id number] [facility] Interpretation and review of laboratory results Abnormal [facility] Performed by: [facility], [address] [place] [address] CLIA ID: [id number] [facility] Interpretation and review of laboratory results Abnormal [facility] Performed by: [facility], [address] [place] [address] CLIA ID: [id number] [facility] Nursing Noteon 05-06-2024 Nursing Note Patient requested discharge transportation be provided by his brother, who drives a wheelchair accessible van. Spoke with nurse at [facility] who was aware that patient was returning this evening and was agreeable to patient being transported by private vehicle. YASHIRA Harvey Bedside RN called report. Patient transferred via everett lift to personal wheelchair and was escorted down to main entrance where his brother picked him up in van Normal [facility] CALCULI ANALYSIS(STONE)on CALCULI COMPOSITION See Note [facility] Comment on above: Result Comment: Calc john composed primarily of: 90% magnesium ammonium phosphate (struvite), and 10% calcium phosphate (hydroxy- and carbonate- apatite). INTERPRETIVE INFORMATION: Calculi (Stone) analysis Calculi are the products of physiological processes that yield crystalline compounds in a matrix of biological compounds and blood. Matrix components are not reported. The clinically significant crystalline components identified in calculi specimens are reported. Gross description may not be consistent with composition determined by FTIR analysis. Performed By: [facility] [address] [place] [address] Ophthalmic Nurse: Otis Sweeney MD, PhD CLIA Number: [id number] Performed By: #### L [id number] #### Auto Fleet Maintenance Manager: BIANCA NICHOLS ([id number]) [facility]) [address] [place] [address] CALCULI DESCRIPTION See Note [facility] Comment on above: Result Comment: Spec imen consists of numerous brown and montano calculi fragments. The total weight is 2645 mg. Performed By: #### L [id number] #### Auto Fleet Maintenance Manager: BIANCA NICHOLS ([id number]) [address] CALCULI MASS [address] [facility] Comment on above: Performed By: #### L [id number] #### Auto Fleet Maintenance Manager: BIANCA NICHOLS ([id number]) [address] CULTURE ANAEROBICon 05-05-20 CULTURE ANAEROBIC ANAEROBIC CULTURE Reference No growth at 5 days [ S = SUSCEPTIBLE R = RESISTANT I = INTERMEDIATE S-DD = Susceptible-dose dependent NS = Non-susceptible NO = No Interpretation ] [facility] Comment on above: Performed By: #### L [id number] #### Auto Fleet Maintenance Manager: BIANCA NICHOLS ([id number]) [facility]) [address] [place] [address] CULTURE, AEROBIC BACTERIA WI TH GRAM STAINon 05-05-2024 CULTURE, AEROBIC BACTERIA WITH GRAM STAIN CULTURE Reference Few skin gosia present ENTEROBACTER AEROGENES Rare Klebsiella (Enterobacter) aerogenes (A) This organism possesses an ampC beta-lactamase. For serious infections outside of the urinary tract, third generation cephalosporins may not be effective, even if test results indicate the organism is susceptible. PSEUDOMONAS AERUGINOSA Rare Pseudomonas aeruginosa (A) GRAM STAIN RESULT (A) Reference (A) No polymorphonuclear leukocytes seen Many Gram positive cocci Organism: ENTEROBACTER AEROGENES Antibiotic HARINDER Interpretation Status Amoxicillin / Clavulanate >=32 ug/ml R F Aztreonam 16 ug/ml I F Cefazolin >=64 ug/ml R F Cefepime <=1 ug/ml S F Ceftriaxone 16 ug/ml R F Ciprofloxacin <=0.25 ug/ml S F Gentamicin <=1 ug/ml S F Meropenem <=0.25 ug/ml S F Piperacillin / Tazobactam >=128 ug/ml R F Trimethoprim / Sulfamethoxazole <=20 ug/ml S F Organism: PSEUDOMONAS AERUGINOSA Antibiotic HARINDER Interpretation Status Cefepime 4 ug/ml S F Ciprofloxacin <=0.25 ug/ml S F Gentamicin 2 ug/ml S F Meropenem 1 ug/ml S F Piperacillin / Tazobactam 8 ug/ml S F [ S = SUSCEPTIBLE R = RESISTANT I = INTERMEDIATE S-DD = Susceptible-dose dependent NS = Non-susceptible NO = No Interpretation ] Normal [facility] Comment on above: Performed By: #### L [id number] ####Auto Fleet Maintenance Manager: BIANCA NICHOLS ([id number])[address] FUNGAL CULTUREon 05-05-2024 FUNGAL CULTURE FUNGAL CULTURE (A) Reference BOLA PARAPSILOSIS Rare Bola parapsilosis (A) [ S = SUSCEPTIBLE R = RESISTANT I = INTERMEDIATE S-DD = Susceptible-dose dependent NS = Non-susceptible NO = No Interpretation ] Normal [facility] Comment on above: Performed By: #### L [id number] ####Auto Fleet Maintenance Manager: BIANCA NICHOLS ([id number])[address] IDNon 05-05-2024 IDN The patient is Moderately Stable - Low risk of patient condition declining or worsening The patient's goals for the shift include pain control The clinical goals for the shift include remain HDS this shift Over the shift, the patient did not make progress toward the following goals. Barriers to progression include none. Recommendations to address these barriers include none. Normal [facility] - Chemistry and C hemistry - challengeon 05-05-2024 Glucose [Mass/Vol] 176 mg/dL High 70 - 100 mg/dL [facility] Glucose [Mass/Vol] 166 mg/dL High 70 - 100 mg/dL [facility] Glucose [Mass/Vol] 236 mg/dL High 70 - 100 mg/dL [facility] MISCELLANEOUS SENDOUT TESTon 05-05-2024 RESULT See Comment Normal [facility] Comment on above: Result Comment: SOSA Barney COMMENTS: Antimicrobial Susceptibility - Fungal (Yeasts and Molds) [employer] test code [id number] Source: Tissue Body Site: Bladder Final Report Bola parapsilosis Organism identified by client Susceptibility Results Organism: Bola parapsilosis Amphotericin B Interpretation: NO INTERPRETATION HARINDER (ug/mL): 0.5 Anidulafungin Interpretation: SUSCEPTIBLE HARINDER (ug/mL): 0.25 Caspofungin Interpretation: SUSCEPTIBLE HARINDER (ug/mL): 0.5 Fluconazole Interpretation: SUSCEPTIBLE HARINDER (ug/mL): 1 Isavuconazole Interpretation: NO INTERPRETATION HARINDER (ug/mL): 0.016 Itraconazole Interpretation: NO INTERPRETATION HARINDRE (ug/mL): 0.03 Micafungin Interpretation: SUSCEPTIBLE HARINDER (ug/mL): 2 Posaconazole Interpretation: NO INTERPRETATION HARINDER (ug/mL): 0.03 Rezafungin Interpretation: SUSCEPTIBLE HARINDER (ug/mL): 0.25 Voriconazole Interpretation: SUSCEPTIBLE HARINDER (ug/mL): 0.016 Testing performed by [facility], [place], [place]. Performed By: #### L [id number] #### Auto Fleet Maintenance Manager: BIANCA NICHOLS ([id number]) [facility] ([facility]) [address] [place] [address] No Panel Informationon 05-05 Interpretation and review of laboratory results Abnormal [facility] Performed by: [facility], [address] [place] [address] CLIA ID: [id number] [facility] There is no interpretation needed for this exam. IMAGING Interpretation and review of laboratory results Abnormal [facility] Performed by: [facility], [address] [place] [address] CLIA ID: [id number] [facility] Interpretation and review of laboratory results Abnormal [facility] Performed by: [facility], [address] [place] [address], [place] [address] CLIA ID: [id number] [facility] Nursing Noteon 05-05-2024 Nursing Note Belongings returned to patient bedside. Meal tray ordered Normal [facility] Nursing Note Spoke with the nurse Lauren from the facility pt came from. The nurse confirmed that pt did not have anything to eat after midnight and only sips of water with morning meds. See MAR for meds. Normal [facility] Op Noteon 05-05-2024 Op Note Jamie Mares 05/06/2024 at 5:11 PM UROLOGY OPERATIVE REPORT PATIENT NAME: Anmol Reynolds DATE OF : 1960 TODAY'S DATE: 05/06/2024 PreOp Dx:: Bladder calculus, bilateral ureteral calculus PostOp Dx: Same Operation : Cystoscopy pyelogram litholapaxy of large bladder stone left ureteroscopy with replacement of left stent, right stent change Surgeon Joan Patel MD Assist Kaitlin Granados Anesthesia:general lma Ebl: Drains 6fr X 24cmJJ Santana 16 Slovenian Santana catheter Specimen: Bladder calculus for stone analysis, culture Complications None; patient tolerated the procedure well. Findings: He is a paraplegic. He was previously hospitalized with urosepsis and had bilateral stents placed. He presents this time for treatment of the bladder stone as well as a bilateral ureteral obstruction. The material in the bladder appeared to be more consistent with a fungus ball than a stone. The laser was used to break this material up and this was aspirated with the Nakita syringe. Some of the material was sent for stone analysis and some was sent for culture The left stent was removed and ureteroscopy was performed up to the kidney no other stones remained contrast was injected through the scope and there was no filling defects mass or hydronephrosis. Because of the manipulation the left stent was placed. The right stent was changed because the distal coil was lasered during treatment of the bladder stone. Right ureteroscopy was not performed because of the multiple procedures and the debris in the urine system visualization was very limited. He is going to be brought back for a second look on the right and removal of the left stent and hopefully removal of the right stent INDICATIONS: Anmol Reynolds , is a 63 y.o. male who presents with bilateral ureteral obstruction and a bladder stone.. Anmol Reynolds presents for bilateral laser lithotripsy. The risks benefits and alternatives were explained and the patient wishes to proceed. PROCEDURE: Anmol Reynolds Was brought to the operating room. Thorough time out was performed and everyone present was in agreement. Patient was placed on OR table. Anesthesia and lines were maintained by the anesthesia team. General anesthesia was induced he was prepped and draped usual fashion placed in lithotomy position. Cystoscope was inserted urethra. There is no stricture or tumor. He has a nonobstructing prostate. Laser was used and the material in the bladder was completely fragmented. The debris was removed with the Nakita syringe. The bladder was inspected there are no other stones tumors or foreign bodies within the bladder other than the stents. The stent was pulled to the meatus on the left. Sensor wire was passed up to the kidney. A 6.9 ureteroscope was used the ureter was inspected all the way up to the kidney. No stones were seen within the ureter. Contrast was injected through the scope. There is no filling defects or mass or hydronephrosis. The ureteroscope was removed. The cystoscope was loaded and the 6 x 26 double-J stent was passed over the wire. Good coil was noted in the kidney and in the bladder Sensor wire was passed up the ureter next to the right stent. Grasping forceps were used to remove the right stent. 6 x 26 double-J stent was passed over the wire. Good coil was noted in the kidney and in the bladder. The bladder was left full. Santana catheter was placed to straight drain. He was awakened and transferred to cover room having tolerated procedure well. He will follow-up in 2 to 3 weeks for left stent removal right ureteroscopy possible laser lithotripsy and right stent change or removal. Joan Patel MD 05/06/24 5:11 PM Normal [facility] 36on 05-04-2024 36 R/S patient for 06/14 at 8:30a, also contacted [place] to confirm transportation Normal [facility] 36 Name of Caller: Dax banks Contact Reason for Appointment: Reschedule 04/21/24 appointment Office Name: Interventional Pain Management Normal [facility] Basic Metabolic Profile (BMP )on 05-02-2024 BUN/CRE 16.0 RATIO Normal 10-20 [facility] Comment on above: Order Comment: 313.2 Performed By: #### L 500.2500, L100.0100 #### [facility] [address] [place], [address] CA,Total 8.7 mg/dL Normal 8.5-10.1 [facility] Comment on above: Order Comment: 313.2 Performed By: #### L 500.2500, L100.0100 #### [facility] [address] [place], [address] Chloride [Moles/Vol] 106 mmol/L Normal 98-107 [facility] Comment on above: Order Comment: 313.2 Performed By: #### L 500.2500, L100.0100 #### [facility] [address] [place], [address] CO2 [Moles/Vol] 26.0 mmol/L Normal 21.0-32.0 [facility] Comment on above: Order Comment: 313.2 Performed By: #### L 500.2500, L100.0100 #### [facility] [address] [place], [address] Creatinine [Mass/Vol] 0.69 mg/dL Low 0.70-1.30 [facility] Comment on above: Order Comment: 313.2 Result Comment: The validity of the calculated GFR GFRAA in patients over 70 years has not been determined. Clinical correlation is essential. Performed By: #### L 500.2500, L100.0100 #### [facility] [address] [place], [address] EST GFR - AA 150 mL/min Normal >60 [facility] Comment on above: Order Comment: 313.2 Result Comment: Afri can Iranian GFR Calc Performed By: #### L 500.2500, L100.0100 #### [facility] [address] [place], [address] GAP 4 Low 5-15 [facility] Comment on above: Order Comment: 313.2 Performed By: #### L 500.2500, L100.0100 #### [facility] [address] [place], [address] GFR/1.73 sq M.predicted among non-blacks MDRD (S/P/Bld) [Vol rate/Area] 124 mL/min/{1.73_m2} Normal >60 [facility] Comment on above: Order Comment: 313.2 Result Comment: Non- GFR Calc Performed By: #### L 500.2500, L100.0100 #### [facility] [address] [place], [address] Glucose [Mass/Vol] 182 mg/dL High 74-106 [facility] Comment on above: Order Comment: 313.2 Result Comment: Fast ing Glucose result greater than or equal to 126 mg/dL suggests DIABETES MELLITUS per A.D.A. criteria. Performed By: #### L 500.2500, L100.0100 #### [facility] [address] [place], [address] Potassium [Moles/Vol] 4.0 mmol/L Normal 3.5-5.1 [facility] Comment on above: Order Comment: 313.2 Performed By: #### L 500.2500, L100.0100 #### [facility] [address] [place], [address] Sodium [Moles/Vol] 136 mmol/L Normal 136-145 [facility] Comment on above: Order Comment: 313.2 Performed By: #### L 500.2500, L100.0100 #### [facility] [address] [place], [address] Urea nitrogen [Mass/Vol] 11 mg/dL Normal 7-18 [facility] Comment on above: Order Comment: 313.2 Performed By: #### L 500.2500, L100.0100 #### [facility] [address] [place], [address] CBC W/Diff, Automatedon 07- Absolute Lymph 2.01 X10 3/uL Normal 0.83-4.51 [facility] Comment on above: Order Comment: 313.2 Performed By: #### L 500.2500, L100.0100 #### [facility] [address] [place], [address] Absolute Neut 3.4 X10 3/uL Normal 2.0-7.7 [facility] Comment on above: Order Comment: 313.2 Performed By: #### L 500.2500, L100.0100 #### [facility] [address] [place], [address] Basophils/100 WBC (Bld) 1.1 % High 0-[address] [facility] Comment on above: Order Comment: 313.2 Performed By: #### L 500.2500, L100.0100 #### [facility] [address] [place], [address] Eosinophils/100 WBC (Bld) 3.1 % Normal 0-5 [facility] Comment on above: Order Comment: 313.2 Performed By: #### L 500.2500, L100.0100 #### [facility] [address] [place], [address] Erythrocyte distribution width (RBC) [Ratio] 14.9 % High 11.6-14.6 [facility] Comment on above: Order Comment: 313.2 Performed By: #### L 500.2500, L100.0100 #### [facility] [address] [place], [address] Hematocrit (Bld) [Volume fraction] 37.0 % Low 40-54 [facility] Comment on above: Order Comment: 313.2 Performed By: #### L 500.2500, L100.0100 #### [facility] [address] [place], [address] Hemoglobin (Bld) [Mass/Vol] 12.0 g/dL Low 13.0-16.5 [facility] Comment on above: Order Comment: 313.2 Performed By: #### L 500.2500, L100.0100 #### [facility] [address] [place], [address] IG% 0.300 Normal 0.0-0.9 [facility] Comment on above: Order Comment: 313.2 Result Comment: IG% - Immature Granulocytes (promyelocytes, myelocytes and metamyelocytes) > 1% indicates that a LEFT SHIFT is Present. Performed By: #### L 500.2500, L100.0100 #### [facility] [address] [place], [address] Lymphocytes/100 WBC (Bld) 30.8 % Normal 19-41 [facility] Comment on above: Order Comment: 313.2 Performed By: #### L 500.2500, L100.0100 #### [facility] [address] [place], [address] MCH (RBC) [Entitic mass] 30.5 pg Normal 27.0-32.0 [facility] Comment on above: Order Comment: 313.2 Performed By: #### L 500.2500, L100.0100 #### [facility] [address] [place], [address] MCHC (RBC) [Mass/Vol] 32.4 g/dL Normal 32-36 [facility] Comment on above: Order Comment: 313.2 Performed By: #### L 500.2500, L100.0100 #### [facility] [address] [place], [address] MCV (RBC) [Entitic vol] 93.9 fL Normal 80-[address] [facility] Comment on above: Order Comment: 313.2 Performed By: #### L 500.2500, L100.0100 #### [facility] [address] [place], [address] Monocytes/100 WBC (Bld) 12.6 % High 0-[address] [facility] Comment on above: Order Comment: 313.2 Performed By: #### L 500.2500, L100.0100 #### [facility] [address] [place], [address] Neutrophils/100 WBC (Bld) 52.1 % Normal 47-70 [facility] Comment on above: Order Comment: 313.2 Performed By: #### L 500.2500, L100.0100 #### [facility] [address] [place], [address] Nucleated RBC (Bld) [#/Vol] 0 10*3/uL Normal 0-5 [facility] Comment on above: Order Comment: 313.2 Performed By: #### L 500.2500, L100.0100 #### [facility] [address] [place], [address] Platelet mean volume (Bld) [Entitic vol] 11.2 fL Normal 6.2-12.0 [facility] Comment on above: Order Comment: 313.2 Performed By: #### L 500.2500, L100.0100 #### [facility] [address] [place], [address] Platelets (Bld) [#/Vol] 299 10*3/uL Normal 150-450 [facility] Comment on above: Order Comment: 313.2 Performed By: #### L 500.2500, L100.0100 #### [facility] [address] [place], [address] RBC (Bld) [#/Vol] 3.94 10*6/uL Low 4.6-6.2 [facility] Comment on above: Order Comment: 313.2 Performed By: #### L 500.2500, L100.0100 #### [facility] [address] [place], [address] RDW SD 51.5 fl High 35.1-43.9 [facility] Comment on above: Order Comment: 313.2 Performed By: #### L 500.2500, L100.0100 #### [facility] [address] [place], [address] WBC (Bld) [#/Vol] 6.5 10*3/uL Normal 4.4-11.0 [facility] Comment on above: Order Comment: 313.2 Performed By: #### L 500.2500, L100.0100 #### [facility] [address] [place], [address] Telephone Encounteron 2023 Phlebotomist Lab Assistant Authentication Interface Message Text Called pt and discussed his MRI L spine results. He has SCI rehab follow up scheduled. Recommended Spine Surgery opinion. No change in clinical condition from last visit. Vaishali Pierre, DO Normal [facility] Phlebotomist Lab Assistant Authentication Interface Message Text Called pt again. Staff at the SNF stated he was unable to come to the phone and asked for call back later in the day. Vaishali Pierre, DO Normal [facility] Telephone Encounteron 2023 Phlebotomist Lab Assistant Authentication Interface Message Text Called pt and reached staff, but he was unable to come to the phone. Will try again tomorrow. Vaishali Pierre, DO Normal [facility] CBC W Auto Differential pane l (Bld)on 04-20-2024 Erythrocyte distribution width (RBC) [Ratio] 14.8 % 11.5 - 15.0 % [facility] Hematocrit (Bld) [Volume fraction] 34.8 % Low 40.0 - 52.0 % [facility] Hemoglobin (Bld) [Mass/Vol] 11.3 g/dL Low 13.0 - 18.0 g/dL [facility] [employer] Interpretation and review of laboratory results Abnormal [facility] IPF 7 [facility] MCH (RBC) [Entitic mass] 30.5 pg 26. 0 - 34.0 pg [facility] MCHC (RBC) [Mass/Vol] 32.5 % 30.5 - 36.0 % [facility] MCV (RBC) [Entitic vol] 94.1 fL 77.0 - 99.0 fL [facility] Platelet mean volume (Bld) [Entitic vol] 11.6 fL 9.0 - 12.7 fL [facility] Platelets (Bld) [#/Vol] 121 10*3/uL Low 140 - 440 10*3/uL [facility] RBC (Bld) [#/Vol] 3.70 10*6/uL Low 4.40 - 5.9 0 10*6/uL [facility] WBC (Bld) [#/Vol] 6.4 10*3/uL 3.6 - 10.7 10*3/uL [facility] Comprehensive metabolic 1998 panelon 04-20-2024 Albumin [Mass/Vol] 2.5 g/dL Low 3.5 - 5.0 g/dL [facility] ALP [Catalytic activity/Vol] 94 U/L 38 - 126 U/L [facility] ALT [Catalytic activity/Vol] 15 U/L 0 - 49 U/L [facility] Anion gap [Moles/Vol] 6 mmol/L 3 - 13 mmol/L [facility] AST [Catalytic activity/Vol] 19 U/L 15 - 46 U/L [facility] Bilirubin [Mass/Vol] 0.4 mg/dL 0.2 - 1 .3 mg/dL [facility] Calcium [Mass/Vol] 7.6 mg/dL Low 8.4 - 10. 4 mg/dL [facility] Chloride [Moles/Vol] 108 mmol/L High 98 - 10 7 mmol/L [facility] CO2 [Moles/Vol] 23 mmol/L 22 - 30 mmol/L [facility] Creatinine [Mass/Vol] 0.44 mg/dL Low 0.66 - 1.25 mg/dL [facility] GFR/1.73 sq M.predicted MDRD (S/P/Bld) [Vol rate/Area] - PINF [facility] Glucose [Mass/Vol] 284 mg/dL High 70 - 100 mg/dL [facility] Interpretation and review of laboratory results Abnormal [facility] Potassium [Moles/Vol] 3.8 mmol/L 3.5 - 5.1 mmol/L [facility] Protein [Mass/Vol] 5.6 g/dL Low 6.3 - 8.2 g/dL [facility] Sodium [Moles/Vol] 138 mmol/L 135 - 145 mmol/L [facility] Urea nitrogen [Mass/Vol] 14 mg/dL 9 - 20 mg/dL [facility] - Chemistry and C hemistry - challengeon 04-20-2024 Glucose [Mass/Vol] 282 mg/dL High 70 - 100 mg/dL [facility] Glucose [Mass/Vol] 398 mg/dL High 70 - 100 mg/dL [facility] Glucose [Mass/Vol] 323 mg/dL High 70 - 100 mg/dL [facility] Magnesium [Mass/Vol] 1.8 mg/dL 1.6 - 2 .3 mg/dL [facility] - Hematology and Cell countson 04-20-2024 Eosinophils (Bld) [#/Vol] 0.3 10*3/uL 0.0 - 0.5 10*3/uL [facility] Eosinophils/100 WBC (Bld) 5 % 0 - 6 % [facility] Lymphocytes (Bld) [#/Vol] 2.0 10*3/uL 1.0 - 4.3 10*3/uL [facility] Lymphocytes/100 WBC (Bld) 32 % 15 - 45 % [facility] Monocytes (Bld) [#/Vol] 0.6 10*3/uL 0.0 - 0.9 10*3/uL [facility] Monocytes/100 WBC (Bld) 10 % 5 - 13 % [facility] Neutrophils (Bld) [#/Vol] 3.4 10*3/uL 1.8 - 7.5 10*3/uL [facility] RBC morphology finding Nom (Bld) Normal [facility] Segmented neutrophils/100 WBC (Bld) 53 % 38 - 82 % [facility] - Microbiology an d Antimicrobial susceptibilityon 04-20-2024 SARS-CoV-2 (COVID-19) Ag IA.rapid Ql (Resp) Negative Negative [facility] No Panel Informationon 04-20 Interpretation and review of laboratory results Abnormal [facility] CV EPIPHANY [facility] Interpretation and review of laboratory results Abnormal [facility] Radiology Study observation (narrative) [facility] Interpretation and review of laboratory results Abnormal [facility] Eosinophils Manual 5 High 0 - 1 [facility] Interpretation and review of laboratory results Abnormal [facility] Lymphocytes Manual 32 [facility] Monocytes Manual 10 [facility] alth Neutrophils Manual 53 [facility] Interpretation and review of laboratory results Normal [facility] No Panel InformationOrdered By: Jax Wiggins on 04-20-2024 P [place] 10 degrees [facility] [employer] Work Phone: [phone] ND Interval 159 ms [facility] [employer] Work Phone: [phone] QRS [place] 28 degrees [facility] [employer] Work Phone: [phone] QRSD Interval 96 ms [facility] [employer] Work Phone: QT Interval 426 ms [facility] [employer] Work Phone: [phone] QTC Interval 477 ms [facility] [employer] Work Phone: T Wave [place] 28 degrees [facility] [employer] Work Phone: [facility] [employer] Work Phone: No Panel InformationOrdered By: Marie Howard on 04-20-2024 [facility] [employer] Work Phone: Phosphate [Moles/Vol]on 04-04 Phosphate [Mass/Vol] 2.8 mg/dL 2.5 - 4 .5 mg/dL [facility] SARS-CoV-2 (COVID-19) Ag IA. rapid Ql (Resp)on 04-20-2024 Interpretation and review of laboratory results Normal [facility] Vital signsOrdered By: Seth Wiggins on 04-20-2024 Heart rate 75 /min bpm [facility] [employer] Work Phone: CBC W Auto Differential pane l (Bld)on 04-19-2024 Erythrocyte distribution width (RBC) [Ratio] 14.8 % 11.5 - 15.0 % [facility] Hematocrit (Bld) [Volume fraction] 35.0 % Low 40.0 - 52.0 % [facility] Hemoglobin (Bld) [Mass/Vol] 11.6 g/dL Low 13.0 - 18.0 g/dL [facility] IPF 8 [facility] MCH (RBC) [Entitic mass] 30.6 pg 26. 0 - 34.0 pg [facility] MCHC (RBC) [Mass/Vol] 33.1 % 30.5 - 36.0 % [facility] MCV (RBC) [Entitic vol] 92.3 fL 77.0 - 99.0 fL [facility] Platelet mean volume (Bld) [Entitic vol] 11.6 fL 9.0 - 12.7 fL [facility] Platelets (Bld) [#/Vol] 88 10*3/uL Low 140 - 440 10*3/uL [facility] RBC (Bld) [#/Vol] 3.79 10*6/uL Low 4.40 - 5.9 0 10*6/uL [facility] WBC (Bld) [#/Vol] 9.2 10*3/uL 3.6 - 10.7 10*3/uL [facility] Comprehensive metabolic 1998 panelon 04-19-2024 Albumin [Mass/Vol] 2.7 g/dL Low 3.5 - 5.0 g/dL [facility] ALP [Catalytic activity/Vol] 119 U/L 38 - 126 U/L [facility] ALT [Catalytic activity/Vol] 16 U/L 0 - 49 U/L [facility] Anion gap [Moles/Vol] 5 mmol/L 3 - 13 mmol/L [facility] AST [Catalytic activity/Vol] 19 U/L 15 - 46 U/L [facility] Bilirubin [Mass/Vol] 0.6 mg/dL 0.2 - 1 .3 mg/dL [facility] Calcium [Mass/Vol] 7.9 mg/dL Low 8.4 - 10. 4 mg/dL [facility] Chloride [Moles/Vol] 107 mmol/L 98 - 10 7 mmol/L [facility] CO2 [Moles/Vol] 26 mmol/L 22 - 30 mmol/L [facility] Creatinine [Mass/Vol] 0.44 mg/dL Low 0.66 - 1.25 mg/dL [facility] GFR/1.73 sq M.predicted MDRD (S/P/Bld) [Vol rate/Area] - PINF [facility] Glucose [Mass/Vol] 153 mg/dL High 70 - 100 mg/dL [facility] Interpretation and review of laboratory results Abnormal [facility] Potassium [Moles/Vol] 3.5 mmol/L 3.5 - 5.1 mmol/L [facility] Protein [Mass/Vol] 6.0 g/dL Low 6.3 - 8.2 g/dL [facility] Sodium [Moles/Vol] 138 mmol/L 135 - 145 mmol/L [facility] Urea nitrogen [Mass/Vol] 14 mg/dL 9 - 20 mg/dL [facility] - Chemistry and C hemistry - challengeon 04-19-2024 Glucose [Mass/Vol] 305 mg/dL High 70 - 100 mg/dL [facility] Glucose [Mass/Vol] 232 mg/dL High 70 - 100 mg/dL [facility] Glucose [Mass/Vol] 163 mg/dL High 70 - 100 mg/dL [facility] Glucose [Mass/Vol] 155 mg/dL High 70 - 100 mg/dL [facility] Magnesium [Mass/Vol] 1.8 mg/dL 1.6 - 2 .3 mg/dL [facility] - Hematology and Cell countson 04-19-2024 Band form neutrophils (Bld) [#/Vol] 0.1 10*3/uL High NINF - 0.0 10*3/uL [facility] Band form neutrophils/100 WBC (Bld) 1 % High NINF - 0 % [facility] Basophils (Bld) [#/Vol] 0.1 10*3/uL 0.0 - 0.2 10*3/uL [facility] Basophils/100 WBC (Bld) 1 % 0 - 2 % [facility] Eosinophils (Bld) [#/Vol] 0.4 10*3/uL 0.0 - 0.5 10*3/uL [facility] Eosinophils/100 WBC (Bld) 4 % 0 - 6 % [facility] Lymphocytes (Bld) [#/Vol] 1.2 10*3/uL 1.0 - 4.3 10*3/uL [facility] Lymphocytes/100 WBC (Bld) 13 % Low 15 - 45 % [facility] Monocytes (Bld) [#/Vol] 0.7 10*3/uL 0.0 - 0.9 10*3/uL [facility] Monocytes/100 WBC (Bld) 8 % 5 - 13 % [facility] Neutrophils (Bld) [#/Vol] 6.7 10*3/uL 1.8 - 7.5 10*3/uL [facility] RBC morphology finding Nom (Bld) abnormal [facility] Segmented neutrophils/100 WBC (Bld) 72 % 38 - 82 % [facility] Stomatocytes LM Ql (Bld) Slight Abnormal (none) [facility] Variant lymphocytes (Bld) [#/Vol] 0.1 10*3/uL High NINF - 0.0 10*3/uL [facility] Variant lymphocytes/100 WBC (Bld) 1 % High NINF - 0 % [facility] No Panel Informationon 04-19 Interpretation and review of laboratory results Abnormal [facility] Interpretation and review of laboratory results Abnormal [facility] Interpretation and review of laboratory results Abnormal [facility] Interpretation and review of laboratory results Abnormal [facility] Atypical Lymphocytes Manual 1 [facility] Health Bands Manual 1 [facility] Basophils Manual 1 [facility] Eosinophils Manual 4 High 0 - 1 [facility] Interpretation and review of laboratory results Abnormal [facility] Lymphocytes Manual 13 [facility] Monocytes Manual 8 [facility] He alth Neutrophils Manual 71 [facility] Interpretation and review of laboratory results Normal [facility] Phosphate [Moles/Vol]on 04-04 Phosphate [Mass/Vol] 3.2 mg/dL 2.5 - 4 .5 mg/dL [facility] Bacteria identified Cx Nom ( Bld)on 04-18-2024 Interpretation and review of laboratory results Abnormal [facility] Bacteria identified Cx Nom ( Bld)Ordered By: Yani Martínez on 04-18-2024 Interpretation and review of laboratory results Abnormal [facility] CBC W Auto Differential pane l (Bld)Ordered By: Gricelda Eduardo on 04-18-2024 Erythrocyte distribution width (RBC) [Ratio] 15.0 % 11.5 - 15.0 % [facility] Hematocrit (Bld) [Volume fraction] 36.6 % Low 40.0 - 52.0 % [facility] Hemoglobin (Bld) [Mass/Vol] 12.1 g/dL Low 13.0 - 18.0 g/dL [facility] Interpretation and review of laboratory results Abnormal [facility] IPF 9 [facility] MCH (RBC) [Entitic mass] 30.6 pg 26. 0 - 34.0 pg [facility] MCHC (RBC) [Mass/Vol] 33.1 % 30.5 - 36.0 % [facility] MCV (RBC) [Entitic vol] 92.7 fL 77.0 - 99.0 fL [facility] Platelet mean volume (Bld) [Entitic vol] 11.7 fL 9.0 - 12.7 fL [facility] Platelets (Bld) [#/Vol] 79 10*3/uL Low 140 - 440 10*3/uL [facility] RBC (Bld) [#/Vol] 3.95 10*6/uL Low 4.40 - 5.9 0 10*6/uL [facility] WBC (Bld) [#/Vol] 8.4 10*3/uL 3.6 - 10.7 10*3/uL [facility] Comprehensive metabolic 1998 panelon 04-18-2024 Albumin [Mass/Vol] 2.9 g/dL Low 3.5 - 5.0 g/dL [facility] ALP [Catalytic activity/Vol] 123 U/L 38 - 126 U/L [facility] ALT [Catalytic activity/Vol] 18 U/L 0 - 49 U/L [facility] Anion gap [Moles/Vol] 7 mmol/L 3 - 13 mmol/L [facility] AST [Catalytic activity/Vol] 18 U/L 15 - 46 U/L [facility] Bilirubin [Mass/Vol] 0.8 mg/dL 0.2 - 1 .3 mg/dL [facility] Calcium [Mass/Vol] 7.8 mg/dL Low 8.4 - 10. 4 mg/dL [facility] Chloride [Moles/Vol] 105 mmol/L 98 - 10 7 mmol/L [facility] CO2 [Moles/Vol] 27 mmol/L 22 - 30 mmol/L [facility] Creatinine [Mass/Vol] 0.51 mg/dL Low 0.66 - 1.25 mg/dL [facility] GFR/1.73 sq M.predicted MDRD (S/P/Bld) [Vol rate/Area] - PINF [facility] Glucose [Mass/Vol] 74 mg/dL 70 - 100 mg/dL [facility] Potassium [Moles/Vol] 3.1 mmol/L Low 3.5 - 5.1 mmol/L [facility] Protein [Mass/Vol] 6.0 g/dL Low 6.3 - 8.2 g/dL [facility] Sodium [Moles/Vol] 140 mmol/L 135 - 145 mmol/L [facility] Urea nitrogen [Mass/Vol] 15 mg/dL 9 - 20 mg/dL [facility] Laboratory - Chemistry and C hemistry - challengeon 04-18-2024 Glucose [Mass/Vol] 264 mg/dL High 70 - 100 mg/dL [facility] Glucose [Mass/Vol] 135 mg/dL High 70 - 100 mg/dL [facility] Glucose [Mass/Vol] 144 mg/dL High 70 - 100 mg/dL [facility] Magnesium [Mass/Vol] 1.5 mg/dL Low 1.6 - 2 .3 mg/dL [facility] Glucose [Mass/Vol] 78 mg/dL 70 - 100 mg/dL [facility] - Microbiology an d Antimicrobial susceptibilityon 04-18-2024 Bacteria identified Cx Nom (Bld) Morganella morganii Critically abnormal [facility] Bacteria identified Cx Nom (Bld) Providencia stuartii Critically abnormal [facility] - Microbiology an d Antimicrobial susceptibilityOrdered By: Yani Martínez on 04-18-2024 Bacteria identified Cx Nom (Bld) Proteus mirabilis Critically abnormal [facility] Bacteria identified Cx Nom (Bld) Providencia stuartii Critically abnormal [facility] Bacteria identified Cx Nom (Bld) Morganella morganii Critically abnormal [facility] Manual differential performe d Ql (Bld)on 04-18-2024 Anisocytosis Ql (Bld) Slight Abnormal (none) [facility] Cells Counted Total (Bld) [#] 100 {cells} [facility] Differential Method Manual differential performed [facility] Eosinophils (Bld) [#/Vol] 0.1 10*3/uL 0.0 - 0.5 10*3/uL [facility] Eosinophils Manual 1 0 - 1 [facility] Eosinophils/100 WBC (Bld) 1 % 0 - 6 % [facility] Hypochromia Ql (Bld) Slight Abnormal (none) [facility] Interpretation and review of laboratory results Abnormal [facility] Leukocyte morphology finding Nom (Bld) Normal [facility] Lymphocytes (Bld) [#/Vol] 1.1 10*3/uL 1.0 - 4.3 10*3/uL [facility] Lymphocytes Manual 13 [facility] Lymphocytes/100 WBC (Bld) 13 % Low 15 - 45 % [facility] Monocytes (Bld) [#/Vol] 0.7 10*3/uL 0.0 - 0.9 10*3/uL [facility] [facility] Monocytes Manual 8 [facility] alth Monocytes/100 WBC (Bld) 8 % 5 - 13 % [facility] Neutrophils (Bld) [#/Vol] 6.6 10*3/uL 1.8 - 7.0 10*3/uL [facility] Neutrophils Manual 78 [facility] Platelet morphology finding Nom (Bld) Normal [facility] Segmented neutrophils/100 WBC (Bld) 78 % 38 - 82 % [facility] WBC corrected for nucl RBC (Bld) [#/Vol] 8.4 10*3/uL 3.6 - 10.7 10*3/uL [facility] No Panel Informationon 04-18 Interpretation and review of laboratory results Abnormal [facility] Interpretation and review of laboratory results Abnormal [facility] Interpretation and review of laboratory results Abnormal [facility] Interpretation and review of laboratory results Abnormal [facility] Interpretation and review of laboratory results Normal [facility] Phosphate [Moles/Vol]on 04-04 Interpretation and review of laboratory results Normal [facility] Phosphate [Mass/Vol] 3.8 mg/dL 2.5 - 4 .5 mg/dL [facility] Bacteria identified Cx Nom ( U)Ordered By: Darya Clark on 04-17-2024 Interpretation and review of laboratory results Abnormal [facility] CBC W Auto Differential pane l (Bld)on 04-17-2024 Basophils (Bld) [#/Vol] 0.0 10*3/uL 0.0 - 0.2 10*3/uL [facility] Basophils/100 WBC (Bld) 0.1 % 0.0 - 2.0 % [facility] Eosinophils (Bld) [#/Vol] 0.1 10*3/uL 0.0 - 0.5 10*3/uL [facility] Eosinophils/100 WBC (Bld) 1.4 % 0.0 - 6.0 % [facility] [employer] Erythrocyte distribution width (RBC) [Ratio] 14.9 % 11.5 - 15.0 % [facility] Hematocrit (Bld) [Volume fraction] 35.4 % Low 40.0 - 52.0 % [facility] Hemoglobin (Bld) [Mass/Vol] 11.5 g/dL Low 13.0 - 18.0 g/dL [facility] Immature granulocytes (Bld) [#/Vol] 0.0 10*3/uL NINF - 0.1 10*3/uL [facility] Health Immature granulocytes/100 WBC (Bld) 0.3 % 0.0 - 2.0 % [facility] Interpretation and review of laboratory results Abnormal [facility] IPF 6 [facility] Lymphocytes (Bld) [#/Vol] 1.3 10*3/uL 1.0 - 4.3 10*3/uL [facility] Lymphocytes/100 WBC (Bld) 16.8 % 15.0 - 45.0 % [facility] MCH (RBC) [Entitic mass] 30.0 pg 26. 0 - 34.0 pg [facility] MCHC (RBC) [Mass/Vol] 32.5 % 30.5 - 36.0 % [facility] MCV (RBC) [Entitic vol] 92.4 fL 77.0 - 99.0 fL [facility] Monocytes (Bld) [#/Vol] 0.4 10*3/uL 0.0 - 0.9 10*3/uL [facility] Monocytes/100 WBC (Bld) 5.5 % 5.0 - 13.0 % [facility] Neutrophils (Bld) [#/Vol] 6.0 10*3/uL 1.8 - 7.5 10*3/uL [facility] Neutrophils/100 WBC (Bld) 75.9 % 38.0 - 82.0 % [facility] Nucleated RBC/100 WBC (Bld) [Ratio] 0.0 % [facility] Platelet mean volume (Bld) [Entitic vol] 11.6 fL 9.0 - 12.7 fL [facility] Platelets (Bld) [#/Vol] 77 10*3/uL Low 140 - 440 10*3/uL [facility] RBC (Bld) [#/Vol] 3.83 10*6/uL Low 4.40 - 5.9 0 10*6/uL [facility] WBC (Bld) [#/Vol] 7.9 10*3/uL 3.6 - 10.7 10*3/uL [facility] Comprehensive metabolic 1998 panelon 04-17-2024 Albumin [Mass/Vol] 2.6 g/dL Low 3.5 - 5.0 g/dL [facility] ALP [Catalytic activity/Vol] 128 U/L High 38 - 126 U/L [facility] ALT [Catalytic activity/Vol] 22 U/L 0 - 49 U/L [facility] Anion gap [Moles/Vol] 5 mmol/L 3 - 13 mmol/L [facility] AST [Catalytic activity/Vol] 22 U/L 15 - 46 U/L [facility] Bilirubin [Mass/Vol] 0.7 mg/dL 0.2 - 1 .3 mg/dL [facility] Calcium [Mass/Vol] 7.9 mg/dL Low 8.4 - 10. 4 mg/dL [facility] Chloride [Moles/Vol] 107 mmol/L 98 - 10 7 mmol/L [facility] CO2 [Moles/Vol] 23 mmol/L 22 - 30 mmol/L [facility] Creatinine [Mass/Vol] 0.58 mg/dL Low 0.66 - 1.25 mg/dL [facility] GFR/1.73 sq M.predicted MDRD (S/P/Bld) [Vol rate/Area] - PINF [facility] Glucose [Mass/Vol] 144 mg/dL High 70 - 100 mg/dL [facility] Interpretation and review of laboratory results Abnormal [facility] Potassium [Moles/Vol] 3.2 mmol/L Low 3.5 - 5.1 mmol/L [facility] Protein [Mass/Vol] 5.6 g/dL Low 6.3 - 8.2 g/dL [facility] Sodium [Moles/Vol] 135 mmol/L 135 - 145 mmol/L [facility] Urea nitrogen [Mass/Vol] 23 mg/dL High 9 - 20 mg/dL [facility] Laboratory - Chemistry and C hemistry - challengeon 04-17-2024 Glucose [Mass/Vol] 200 mg/dL High 70 - 100 mg/dL [facility] Glucose [Mass/Vol] 235 mg/dL High 70 - 100 mg/dL [facility] Glucose [Mass/Vol] 200 mg/dL High 70 - 100 mg/dL [facility] Glucose [Mass/Vol] 104 mg/dL High 70 - 100 mg/dL [facility] Magnesium [Mass/Vol] 1.6 mg/dL 1.6 - 2 .3 mg/dL [facility] Laboratory - Microbiology an d Antimicrobial susceptibilityOrdered By: Darya Clark on 04-17-2024 Bacteria identified Cx Nom (U) Normal urogenital gosia present [facility] Bacteria identified Cx Nom (U) 50,000-90,000 CFU/mL Providencia stuartii Abnormal [facility] No Panel Informationon 04-17 Interpretation and review of laboratory results Abnormal [facility] Interpretation and review of laboratory results Abnormal [facility] Interpretation and review of laboratory results Abnormal [facility] Interpretation and review of laboratory results Abnormal [facility] Interpretation and review of laboratory results Normal [facility] Phosphate [Moles/Vol]on 04-04 Phosphate [Mass/Vol] 2.8 mg/dL 2.5 - 4 .5 mg/dL [facility] CBC W Auto Differential pane l (Bld)Ordered By: Jj North on 04-16-2024 Erythrocyte distribution width (RBC) [Ratio] 15.2 % High 11.5 - 15.0 % [facility] Hematocrit (Bld) [Volume fraction] 37.2 % Low 40.0 - 52.0 % [facility] Hemoglobin (Bld) [Mass/Vol] 12.0 g/dL Low 13.0 - 18.0 g/dL [facility] IPF 8 [facility] MCH (RBC) [Entitic mass] 30.7 pg 26. 0 - 34.0 pg [facility] MCHC (RBC) [Mass/Vol] 32.3 % 30.5 - 36.0 % [facility] MCV (RBC) [Entitic vol] 95.1 fL 77.0 - 99.0 fL [facility] Platelet mean volume (Bld) [Entitic vol] 12.0 fL 9.0 - 12.7 fL [facility] Platelets (Bld) [#/Vol] 76 10*3/uL Low 140 - 440 10*3/uL [facility] RBC (Bld) [#/Vol] 3.91 10*6/uL Low 4.40 - 5.9 0 10*6/uL [facility] WBC (Bld) [#/Vol] 11.9 10*3/uL High 3.6 - 10.7 10*3/uL [facility] Comprehensive metabolic 1998 panelon 04-16-2024 Albumin [Mass/Vol] 2.8 g/dL Low 3.5 - 5.0 g/dL [facility] ALP [Catalytic activity/Vol] 130 U/L High 38 - 126 U/L [facility] ALT [Catalytic activity/Vol] 26 U/L 0 - 49 U/L [facility] Anion gap [Moles/Vol] 6 mmol/L 3 - 13 mmol/L [facility] AST [Catalytic activity/Vol] 37 U/L 15 - 46 U/L [facility] Bilirubin [Mass/Vol] 0.9 mg/dL 0.2 - 1 .3 mg/dL [facility] Calcium [Mass/Vol] 8.2 mg/dL Low 8.4 - 10. 4 mg/dL [facility] Chloride [Moles/Vol] 105 mmol/L 98 - 10 7 mmol/L [facility] CO2 [Moles/Vol] 25 mmol/L 22 - 30 mmol/L [facility] Creatinine [Mass/Vol] 0.70 mg/dL 0.66 - 1.25 mg/dL [facility] GFR/1.73 sq M.predicted MDRD (S/P/Bld) [Vol rate/Area] - PINF [facility] Glucose [Mass/Vol] 315 mg/dL High 70 - 100 mg/dL [facility] Interpretation and review of laboratory results Abnormal [facility] Potassium [Moles/Vol] 4.3 mmol/L 3.5 - 5.1 mmol/L [facility] Protein [Mass/Vol] 6.0 g/dL Low 6.3 - 8.2 g/dL [facility] Sodium [Moles/Vol] 137 mmol/L 135 - 145 mmol/L [facility] Urea nitrogen [Mass/Vol] 30 mg/dL High 9 - 20 mg/dL [facility] Laboratory - Chemistry and C hemistry - challengeon 04-16-2024 Glucose [Mass/Vol] 253 mg/dL High 70 - 100 mg/dL [facility] Glucose [Mass/Vol] 307 mg/dL High 70 - 100 mg/dL [facility] Glucose [Mass/Vol] 333 mg/dL High 70 - 100 mg/dL [facility] Glucose [Mass/Vol] 323 mg/dL High 70 - 100 mg/dL [facility] Magnesium [Mass/Vol] 2.0 mg/dL 1.6 - 2 .3 mg/dL [facility] Laboratory - Coagulationon 0 04-16-2024 aPTT Coag (PPP) [Time] 25.4 s 20.0 - 30.5 s [facility] INR Coag (PPP) [Relative time] 1.0 {INR} 0.9 - 1.1 [facility] PT Coag (Bld) [Time] 10.9 s 9.0 - 1 2.0 s [facility] Laboratory - Drug toxicology on 04-16-2024 Vancomycin [Mass/Vol] 12.3 ug/mL Low 15.0 - 20.0 ug/mL [facility] Laboratory - Hematology and Cell countson 04-16-2024 Anisocytosis Ql (Bld) Rare Abnormal (none) [facility] Band form neutrophils (Bld) [#/Vol] 0.2 10*3/uL High NINF - 0.0 10*3/uL [facility] Band form neutrophils/100 WBC (Bld) 2 % High NINF - 0 % [facility] [place] cells LM Ql (Bld) Slight Abnormal (none) [facility] Lymphocytes (Bld) [#/Vol] 0.5 10*3/uL Low 1.0 - 4.3 10*3/uL [facility] Lymphocytes/100 WBC (Bld) 4 % Low 15 - 45 % [facility] Monocytes (Bld) [#/Vol] 0.1 10*3/uL 0.0 - 0.9 10*3/uL [facility] Monocytes/100 WBC (Bld) 1 % Low 5 - 13 % [facility] Neutrophils (Bld) [#/Vol] 11.3 10*3/uL High 1.8 - 7.5 10*3/uL [facility] Ovalocytes LM Ql (Bld) Rare Abnormal (none) [facility] Poikilocytosis LM Ql (Bld) Slight Abnormal (none) [facility] RBC morphology finding Nom (Bld) abnormal [facility] Segmented neutrophils/100 WBC (Bld) 93 % High 38 - 82 % [facility] No Panel Informationon 04-16 Interpretation and review of laboratory results Abnormal [facility] Interpretation and review of laboratory results Abnormal [facility] Interpretation and review of laboratory results Normal [facility] Interpretation and review of laboratory results Abnormal [facility] Interpretation and review of laboratory results Abnormal [facility] Bands Manual 2 [facility] Lymphocytes Manual 4 [facility] Monocytes Manual 1 [facility] alth Neutrophils Manual 96 [facility] Interpretation and review of laboratory results Abnormal [facility] Interpretation and review of laboratory results Normal [facility] No Panel InformationOrdered By: Jj North on 04-16-2024 Interpretation and review of laboratory results Abnormal [facility] Phosphate [Moles/Vol]on 04-04 Phosphate [Mass/Vol] 2.7 mg/dL 2.5 - 4 .5 mg/dL [facility] CBC W Auto Differential pane l (Bld)Ordered By: Dawood Juna on 04-15-2024 Erythrocyte distribution width (RBC) [Ratio] 14.9 % 11.5 - 15.0 % [facility] Hematocrit (Bld) [Volume fraction] 36.2 % Low 40.0 - 52.0 % [facility] Hemoglobin (Bld) [Mass/Vol] 11.9 g/dL Low 13.0 - 18.0 g/dL [facility] Interpretation and review of laboratory results Abnormal [facility] IPF 5 [facility] MCH (RBC) [Entitic mass] 30.9 pg 26. 0 - 34.0 pg [facility] MCHC (RBC) [Mass/Vol] 32.9 % 30.5 - 36.0 % [facility] MCV (RBC) [Entitic vol] 94.0 fL 77.0 - 99.0 fL [facility] Platelet mean volume (Bld) [Entitic vol] 10.8 fL 9.0 - 12.7 fL [facility] Platelets (Bld) [#/Vol] 107 10*3/uL Low 140 - 440 10*3/uL [facility] RBC (Bld) [#/Vol] 3.85 10*6/uL Low 4.40 - 5.9 0 10*6/uL [facility] WBC (Bld) [#/Vol] 11.2 10*3/uL High 3.6 - 10.7 10*3/uL [facility] CBC W Auto Differential pane l (Bld)Ordered By: Benigno Guerrier on 04-15-2024 Erythrocyte distribution width (RBC) [Ratio] 14.8 % 11.5 - 15.0 % [facility] Hematocrit (Bld) [Volume fraction] 39.1 % Low 40.0 - 52.0 % [facility] Hemoglobin (Bld) [Mass/Vol] 12.4 g/dL Low 13.0 - 18.0 g/dL [facility] Interpretation and review of laboratory results Abnormal [facility] IPF 5 [facility] MCH (RBC) [Entitic mass] 30.8 pg 26. 0 - 34.0 pg [facility] MCHC (RBC) [Mass/Vol] 31.7 % 30.5 - 36.0 % [facility] MCV (RBC) [Entitic vol] 97.0 fL 77.0 - 99.0 fL [facility] Platelet mean volume (Bld) [Entitic vol] 10.9 fL 9.0 - 12.7 fL [facility] Platelets (Bld) [#/Vol] 117 10*3/uL Low 140 - 440 10*3/uL [facility] RBC (Bld) [#/Vol] 4.03 10*6/uL Low 4.40 - 5.9 0 10*6/uL [facility] WBC (Bld) [#/Vol] 5.4 10*3/uL 3.6 - 10.7 10*3/uL [facility] Comprehensive metabolic 1998 panelon 04-15-2024 Albumin [Mass/Vol] 2.6 g/dL Low 3.5 - 5.0 g/dL [facility] ALP [Catalytic activity/Vol] 168 U/L High 38 - 126 U/L [facility] ALT [Catalytic activity/Vol] 34 U/L 0 - 49 U/L [facility] Anion gap [Moles/Vol] 10 mmol/L 3 - 13 mmol/L [facility] AST [Catalytic activity/Vol] 36 U/L 15 - 46 U/L [facility] Bilirubin [Mass/Vol] 1.1 mg/dL 0.2 - 1 .3 mg/dL [facility] Calcium [Mass/Vol] 7.9 mg/dL Low 8.4 - 10. 4 mg/dL [facility] Chloride [Moles/Vol] 105 mmol/L 98 - 10 7 mmol/L [facility] CO2 [Moles/Vol] 19 mmol/L Low 22 - 30 mmol/L [facility] Creatinine [Mass/Vol] 1.01 mg/dL 0.66 - 1.25 mg/dL [facility] GFR/1.73 sq M.predicted MDRD (S/P/Bld) [Vol rate/Area] 84.1 mL/min/{1.73_m2} - PINF [facility] th Glucose [Mass/Vol] 286 mg/dL High 70 - 100 mg/dL [facility] Interpretation and review of laboratory results Abnormal [facility] Potassium [Moles/Vol] 3.6 mmol/L 3.5 - 5.1 mmol/L [facility] Protein [Mass/Vol] 5.5 g/dL Low 6.3 - 8.2 g/dL [facility] Sodium [Moles/Vol] 135 mmol/L 135 - 145 mmol/L [facility] Urea nitrogen [Mass/Vol] 25 mg/dL High 9 - 20 mg/dL [facility] Laboratory - Chemistry and C hemistry - challengeon 04-15-2024 Glucose [Mass/Vol] 390 mg/dL High 70 - 100 mg/dL [facility] Glucose [Mass/Vol] 342 mg/dL High 70 - 100 mg/dL [facility] Average glucose Estimated from glycated hemoglobin (Bld) [Mass/Vol] 134 mg/dL [facility] Glucose [Mass/Vol] 287 mg/dL High 70 - 100 mg/dL [facility] Lactate [Moles/Vol] 2.0 mmol/L 0.7 - 2. 0 mmol/L [facility] Procalcitonin [Mass/Vol] 27.06 ng/mL High 0.0 0 - 0.09 ng/mL [facility] Glucose [Mass/Vol] 285 mg/dL High 70 - 100 mg/dL [facility] Lactate [Moles/Vol] 3.6 mmol/L High 0.7 - 2. 0 mmol/L [facility] Magnesium [Mass/Vol] 1.7 mg/dL 1.6 - 2 .3 mg/dL [facility] Laboratory - Drug toxicology on 04-15-2024 Vancomycin [Mass/Vol] 10.8 ug/mL Low 15.0 - 20.0 ug/mL [facility] - Hematology and Cell countson 04-15-2024 HbA1c (Bld) [Mass fraction] 6.3 % High NINF - 5.7 % [facility] Band form neutrophils (Bld) [#/Vol] 2.6 10*3/uL High NINF - 0.0 10*3/uL [facility] Band form neutrophils/100 WBC (Bld) 23 % High NINF - 0 % [facility] [place] cells LM Ql (Bld) Slight Abnormal (none) [facility] Lymphocytes (Bld) [#/Vol] 0.1 10*3/uL Low 1.0 - 4.3 10*3/uL [facility] Lymphocytes/100 WBC (Bld) 1 % Low 15 - 45 % [facility] Metamyelocytes (Bld) [#/Vol] 0.1 10*3/uL High NINF - 0.0 10*3/uL [facility] Metamyelocytes/100 WBC (Bld) 1 % High NINF - 0 % [facility] Monocytes (Bld) [#/Vol] 0.1 10*3/uL 0.0 - 0.9 10*3/uL [facility] Monocytes/100 WBC (Bld) 1 % Low 5 - 13 % [facility] Neutrophils (Bld) [#/Vol] 11.0 10*3/uL High 1.8 - 7.5 10*3/uL [facility] Poikilocytosis LM Ql (Bld) Rare Abnormal (none) [facility] RBC morphology finding Nom (Bld) abnormal [facility] Segmented neutrophils/100 WBC (Bld) 75 % 38 - 82 % [facility] Band form neutrophils (Bld) [#/Vol] 1.2 10*3/uL High NINF - 0.0 10*3/uL [facility] Band form neutrophils/100 WBC (Bld) 23 % High NINF - 0 % [facility] Basophils (Bld) [#/Vol] 0.1 10*3/uL 0.0 - 0.2 10*3/uL [facility] Basophils/100 WBC (Bld) 1 % 0 - 2 % [facility] [place] cells LM Ql (Bld) Slight Abnormal (none) [facility] Lymphocytes (Bld) [#/Vol] 0.1 10*3/uL Low 1.0 - 4.3 10*3/uL [facility] Lymphocytes/100 WBC (Bld) 1 % Low 15 - 45 % [facility] Metamyelocytes (Bld) [#/Vol] 0.1 10*3/uL High NINF - 0.0 10*3/uL [facility] Metamyelocytes/100 WBC (Bld) 1 % High NINF - 0 % [facility] Monocytes (Bld) [#/Vol] 0.0 10*3/uL 0.0 - 0.9 10*3/uL [facility] Monocytes/100 WBC (Bld) 0 % Low 5 - 13 % [facility] Neutrophils (Bld) [#/Vol] 5.2 10*3/uL 1.8 - 7.5 10*3/uL [facility] Poikilocytosis LM Ql (Bld) Rare Abnormal (none) [facility] RBC morphology finding Nom (Bld) abnormal [facility] Segmented neutrophils/100 WBC (Bld) 74 % 38 - 82 % [facility] MRSA DNA JOSSY+probe Ql (Nose) on 04-15-2024 Interpretation and review of laboratory results Abnormal [facility] mecA gene Not detected Not Detected [facility] Staphylococcus aureus Detected Abnormal Not Detected [facility] No Panel Informationon 04-15 Interpretation and review of laboratory results Abnormal [facility] Interpretation and review of laboratory results Abnormal [facility] Interpretation and review of laboratory results Abnormal [facility] Interpretation and review of laboratory results Abnormal [facility] Interpretation and review of laboratory results Normal [facility] Interpretation and review of laboratory results Abnormal [facility] Bands Manual 23 [facility] Interpretation and review of laboratory results Abnormal [facility] Lymphocytes Manual 1 [facility] Metamyelocytes Manual 1 [facility] Monocytes Manual 1 [facility] alth Neutrophils Manual 76 [facility] Interpretation and review of laboratory results Abnormal [facility] Interpretation and review of laboratory results Normal [facility] CV EPIPHANY [facility] Interpretation and review of laboratory results Abnormal [facility] Bands Manual 23 [facility] Basophils Manual 1 [facility] Interpretation and review of laboratory results Abnormal [facility] Lymphocytes Manual 1 [facility] Metamyelocytes Manual 1 [facility] Monocytes Manual 0 [facility] alth Neutrophils Manual 74 [facility] No Panel InformationOrdered By: Radha Clarke on 04-15-2024 Interpretation and review of laboratory results Abnormal [facility] Proteus species Detected Abnormal Not Detected [facility] No Panel InformationOrdered By: Gerber Cardona on 04-15-2024 P [place] 4 degrees [facility] [employer] Work Phone: ND Interval 154 ms [facility] [employer] Work Phone: QRS [place] 36 degrees [facility] [employer] Work Phone: QRSD Interval 90 ms [facility] [employer] Work Phone: QT Interval 336 ms [facility] [employer] Work Phone: QTC Interval 473 ms [facility] [employer] Work Phone: T Wave [place] 37 degrees [facility] [employer] Work Phone: [facility] [employer] Work Phone: Phosphate [Moles/Vol]on 04-04 Phosphate [Mass/Vol] 3.3 mg/dL 2.5 - 4 .5 mg/dL [facility] Procalcitonin [Mass/Vol]on 04-15-2024 Interpretation and review of laboratory results Abnormal [facility] Vital signsOrdered By: Gerber Cardona on 04-15-2024 Heart rate 119 /min bpm [facility] [employer] Work Phone: ABO and Rh group Confirm Nom (Bld)on 04-14-2024 ABO group Nom (Bld) O [facility] [employer] D Ag Ql (RBC) Negative [facility] ABO and Rh group panel (Bld) on 04-14-2024 ABO group Nom (Bld) O [facility] [employer] D Ag Ql (RBC) Negative [facility] CBC W Auto Differential pane l (Bld)Ordered By: Bev Santizo on 04-14-2024 Erythrocyte distribution width (RBC) [Ratio] 14.8 % 11.5 - 15.0 % [facility] Hematocrit (Bld) [Volume fraction] 47.3 % 40.0 - 52.0 % [facility] Hemoglobin (Bld) [Mass/Vol] 15.2 g/dL 13.0 - 18.0 g/dL [facility] Interpretation and review of laboratory results Abnormal [facility] MCH (RBC) [Entitic mass] 30.7 pg 26. 0 - 34.0 pg [facility] MCHC (RBC) [Mass/Vol] 32.1 % 30.5 - 36.0 % [facility] MCV (RBC) [Entitic vol] 95.6 fL 77.0 - 99.0 fL [facility] Platelet mean volume (Bld) [Entitic vol] 10.8 fL 9.0 - 12.7 fL [facility] Platelets (Bld) [#/Vol] 183 10*3/uL 140 - 440 10*3/uL [facility] RBC (Bld) [#/Vol] 4.95 10*6/uL 4.40 - 5.9 0 10*6/uL [facility] WBC (Bld) [#/Vol] 1.5 10*3/uL Critically low 3.6 - 10 .7 10*3/uL [facility] CT Abdomen WO contraston [facility] RADIOLOGY [facility] RADIOLOGY [facility] Radiology Study observation (narrative) [facility] CT Abdomen WO contrastOrdere d By: Joe Monroy on 04-14-2024 [facility] Work Phone: Comprehensive metabolic 1998 panelon 04-14-2024 Albumin [Mass/Vol] 4.0 g/dL 3.5 - 5.0 g/dL [facility] ALP [Catalytic activity/Vol] 167 U/L High 38 - 126 U/L [facility] ALT [Catalytic activity/Vol] 22 U/L 0 - 49 U/L [facility] Anion gap [Moles/Vol] 16 mmol/L High 3 - 13 mmol/L [facility] AST [Catalytic activity/Vol] 25 U/L 15 - 46 U/L [facility] Bilirubin [Mass/Vol] 1.4 mg/dL High 0.2 - 1 .3 mg/dL [facility] Calcium [Mass/Vol] 9.0 mg/dL 8.4 - 10. 4 mg/dL [facility] Chloride [Moles/Vol] 102 mmol/L 98 - 10 7 mmol/L [facility] CO2 [Moles/Vol] 19 mmol/L Low 22 - 30 mmol/L [facility] Creatinine [Mass/Vol] 1.24 mg/dL 0.66 - 1.25 mg/dL [facility] GFR/1.73 sq M.predicted MDRD (S/P/Bld) [Vol rate/Area] 65.7 mL/min/{1.73_m2} - PINF [facility] th Glucose [Mass/Vol] 259 mg/dL High 70 - 100 mg/dL [facility] Potassium [Moles/Vol] 3.9 mmol/L 3.5 - 5.1 mmol/L [facility] Protein [Mass/Vol] 7.8 g/dL 6.3 - 8.2 g/dL [facility] Sodium [Moles/Vol] 137 mmol/L 135 - 145 mmol/L [facility] Urea nitrogen [Mass/Vol] 21 mg/dL High 9 - 20 mg/dL [facility] Laboratory - Chemistry and C hemistry - challengeOrdered By: Meliton Burrows on 04-14-2024 Lactate [Moles/Vol] 4.9 mmol/L Critically high 0.7 - 2.0 mmol/L [facility] Laboratory - Chemistry and C hemistry - challengeon 04-14-2024 Glucose [Mass/Vol] 223 mg/dL High 70 - 100 mg/dL [facility] Glucose [Mass/Vol] 210 mg/dL High 70 - 100 mg/dL [facility] Glucose [Mass/Vol] 226 mg/dL High 70 - 100 mg/dL [facility] Lipase [Catalytic activity/Vol] U/L Low 23 - 300 U/L [facility] Lactate [Moles/Vol] 3.9 mmol/L High 0.7 - 2. 0 mmol/L [facility] Troponin I.cardiac [Mass/Vol] ng/mL NINF - 0.034 ng/mL [facility] Beta hydroxybutyrate [Mass/Vol] 1.08 mg/dL 0.20 - 2.81 mg/dL [facility] Base excess Calc (BldV) [Moles/Vol] -8.0000 mmol/L Low -3.0 - 3.0 mmol/L [facility] CO2 (BldV) [Partial pressure] 47.4 mm[Hg] [facility] CO2 [Moles/Vol] 20.9 mmol/L Low 23.0 - 30.0 mmol/L [facility] HCO3 (Bld) [Moles/Vol] 19.5 mmol/L Low 21.0 - 30.0 mmol/L [facility] Oxygen (BldV) [Partial pressure] 40.8 mm[Hg] mm Hg [facility] pH (BldV) 7.232 [pH] Low 7.320 - 7.420 [facility] Lipase [Catalytic activity/Vol] 12 U/L Low 23 - 300 U/L [facility] Laboratory - Chemistry and C hemistry - challengeOrdered By: Elliot Martines on 04-14-2024 Lactate [Moles/Vol] 5.1 mmol/L Critically high 0.7 - 2.0 mmol/L [facility] Laboratory - Coagulationon 0 04-14-2024 PT Coag (Bld) [Time] 27.1 s High 9.0 - 1 2.0 s [facility] Laboratory - Hematology and Cell countson 04-14-2024 Hemoglobin (Bld) [Mass/Vol] 13.7 g/dL Screen only [facility] Band form neutrophils (Bld) [#/Vol] 0.3 10*3/uL High NINF - 0.0 10*3/uL [facility] Band form neutrophils/100 WBC (Bld) 17 % High NINF - 0 % [facility] Basophils (Bld) [#/Vol] 0.0 10*3/uL 0.0 - 0.2 10*3/uL [facility] Basophils/100 WBC (Bld) 1 % 0 - 2 % [facility] Lymphocytes (Bld) [#/Vol] 0.6 10*3/uL Low 1.0 - 4.3 10*3/uL [facility] Lymphocytes/100 WBC (Bld) 38 % 15 - 45 % [facility] Monocytes (Bld) [#/Vol] 0.0 10*3/uL 0.0 - 0.9 10*3/uL [facility] Monocytes/100 WBC (Bld) 1 % Low 5 - 13 % [facility] Neutrophils (Bld) [#/Vol] 0.9 10*3/uL Low 1.8 - 7.5 10*3/uL [facility] RBC morphology finding Nom (Bld) Normal [facility] Segmented neutrophils/100 WBC (Bld) 42 % 38 - 82 % [facility] Lipase [Catalytic activity/V ol]on 04-14-2024 Interpretation and review of laboratory results Abnormal [facility] No Panel InformationOrdered By: Meliton Burrows on 04-14-2024 Interpretation and review of laboratory results Abnormal [facility] No Panel Informationon 04-14 Interpretation and review of laboratory results Abnormal [facility] Interpretation and review of laboratory results Abnormal [facility] Interpretation and review of laboratory results Abnormal [facility] Interpretation and review of laboratory results Abnormal [facility] Interpretation and review of laboratory results Abnormal [facility] Interpretation and review of laboratory results Normal [facility] Interpretation and review of laboratory results Abnormal [facility] Source Of Oxygen Room Air [facility] He alth [facility] Bands Manual 17 [facility] Basophils Manual 1 [facility] alth Interpretation and review of laboratory results Abnormal [facility] Lymphocytes Manual 38 [facility] Monocytes Manual 1 [facility] alth Neutrophils Manual 42 [facility] Interpretation and review of laboratory results Abnormal [facility] No Panel InformationOrdered By: Elliot Martines on 04-14-2024 Interpretation and review of laboratory results Abnormal [facility] PT Coag (Bld) [Time]on 04-14 INR Coag (PPP) [Relative time] 2.7 {INR} High 0.9 - 1.1 [facility] RF Kidney and Ureter and Uri nary bladder Views W contrast retrogradeon 04-14-2024 IMAGING Troponin I.cardiac [Mass/Vol ]on 04-14-2024 Interpretation and review of laboratory results Normal [facility] Vital signson 04-14-2024 Oxygen saturation in Venous blood 70.7 % [facility] XR Chest Single viewon 04-14 [facility] Radiology Study observation (narrative) [facility] alth XR Chest Single viewOrdered By: Geneva Lunsford on 04-14-2024 [facility] Work Phone: aPTT Coag (Bld) [Time]on aPTT Coag (PPP) [Time] 68.0 s High 20.0 - 30.5 s [facility] Telephone Encounteron 2023 Phlebotomist Lab Assistant Authentication Interface Message Text Called pt on his room number but unable to reach him or leave a message. I called nursing staff at the [place] where he lives and was able to leave a message with nursing regarding his MRI findings and that I would like to speak with him and recommendations to schedule visit with SCI rehab and spine surgery. Vaishali Pierre, DO [facility] Telephone Encounteron 2023 Phlebotomist Lab Assistant Authentication Interface Message Text Telephoned [place] pt at dinner and medical receptionist states she cannot pull pt away from dinner. [facility] Phlebotomist Lab Assistant Authentication Interface Message Text Called pt regarding his MRI, which showed: IMPRESSION: Acute-subacute sacral insufficiency fracture at S2. Postoperative and degenerative changes of the lumbar spine with linear granulation tissue at L2-3 and tethering of the cauda equina suggesting sequelae of chronic arachnoiditis. No evidence of osteomyelitis discitis or epidural abscess. He was currently out of the care home where he lives, but I was able to leave a message with the nursing staff that I would like to speak with him regarding these results. He needs to establish with [facility] spinal cord injury service for ongoing care in the SCI clinic as ordered last visit. I also ordered a spine surgery consultation for him due to the above findings.[facility]. Vaishali Pierre DO [facility] MR L-SPINE W/+W/Oon 04-05-20 24 MR L-SPINE W/+W/O EXAMINATION: MR L-SPINE W/+W/O 04/05/2024 05:30 PM CLINICAL HISTORY: Low back pain, 6 weeks or more; Neurologic deficit consistent with l-spine pathology; S/P lumbar surgery; S/P physical therapy; X-ray L-spine done; prior h/o T12, L1 spinal cord injury, epidural abscess in 2021 , h/o multiple back surgeries, lumbar fusion. ASSOCIATED DIAGNOSIS: Paraplegia (HCC) History of lumbar fusion ORDERING PROVIDER: VAISHALI PIERRE TECHNOLOGISTS NOTE: COMPARISON: Lumbar radiographs from 02/10/2024 TECHNIQUE: Patient questionnaire was completed and was reviewed by MRI personnel prior to the patient entering the scanner. Multiplanar, multisequence MR imaging of the lumbar spine was performed with and without intravenous contrast. with and without. INTRA-PROCEDURE MEDS: Gadoterate Meglumine (DOTAREM) 10 MMOL/20ML solution 17 mL Route: Intravenous Push FINDINGS: Counting reference: Lumbosacral junction. L4-5 is at the level of the iliac crests, and there are 5 nonrib-bearing lumbar-type vertebral bodies. Alignment: Levoconvex curvature centered at L2-3 and fused grade 1 anterolisthesis at L3-4, similar to prior. Vertebral Body Height: Chronic and benign-appearing mild superior endplate depressions at T12 and L1. Chronic loss of vertebral body height at L2-3 with associated ankylosis post discectomy. Bone Marrow and Discs: Acute to subacute sacral insufficiency fracture with ventral cortical irregularity at S2 and mild corresponding marrow edema extending to the sacral ala No aggressive focal lesion or pathologic marrow infiltration. Postoperative changes of L2-3 discectomy and multilevel lumbar dorsal decompression with posterior segmental interbody fusion at T12-L5 Conus: Normal position and signal intensity. 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 No abnormal intramedullary or leptomeningeal enhancement. Paraspinal Soft Tissues: Disruption dorsal paraspinous soft tissues in the laminectomy bed without focal dorsal paraspinous, paravertebral, or prevertebral fluid collection. Atrophy of the caudal erector spinae, iliopsoas muscles, and gluteal musculature. T12-L1: No significant spinal canal or neural foraminal stenosis. L1-L2: No significant spinal canal stenosis. Mild neural foraminal stenoses due to endplate spurring and facet hypertrophy. L2-L3: Moderate eccentric spinal canal stenosis due to granulation tissue/scarring . Bilateral subarticular recess narrowing and severe neural foraminal stenoses with contributions from bony alkalosis and facet hypertrophy. L3-L4: No significant spinal canal stenosis following dorsal decompression. Bilateral subarticular recess narrowing and severe neural foraminal stenoses with contributions from fused grade 1 anterolisthesis, endplate spurring, and facet hypertrophy. L4-L5: No significant spinal canal or right neural foraminal stenosis. Mild left neural foraminal stenosis due to endplate spurring and facet hypertrophy. L5-S1: No significant spinal canal or right neural foraminal stenosis. Moderate left neural foraminal stenosis due to endplate spurring and facet hypertrophy. Sacrum: Acute-subacute sacral insufficiency fracture at S2 as detailed. The sacroiliac joints are normally approximated. IMPRESSION: Acute-subacute sacral insufficiency fracture at S2. Postoperative and degenerative changes of the lumbar spine with linear granulation tissue at L2-3 and tethering of the cauda equina suggesting sequelae of chronic arachnoiditis. No evidence of osteomyelitis discitis or epidural abscess. MACRO: None [facility] MR Lumbar spine WO and W con trast Poli 04-05-2024 EXAMINATION: MR L-SPINE W/+W/O 04/05/2024 05:30 PM CLINICAL HISTORY: Low back pain, 6 weeks or more; Neurologic deficit consistent with l-spine pathology; S/P lumbar surgery; S/P physical therapy; X-ray L-spine done; prior h/o T12, L1 spinal cord injury, epidural abscess in 2021 , h/o multiple back surgeries, lumbar fusion. ASSOCIATED DIAGNOSIS: Paraplegia (HCC) History of lumbar fusion ORDERING PROVIDER: VAISHALI PIERRE [employer]ISTS NOTE: COMPARISON: Lumbar radiographs from 02/10/2024 TECHNIQUE: Patient questionnaire was completed and was reviewed by MRI personnel prior to the patient entering the scanner. Multiplanar, multisequence MR imaging of the lumbar spine was performed with and without intravenous contrast. with and without. INTRA-PROCEDURE MEDS: Gadoterate Meglumine (DOTAREM) 10 MMOL/20ML solution 17 mL Route: Intravenous Push FINDINGS: Counting reference: Lumbosacral junction. L4-5 is at the level of the iliac crests, and there are 5 nonrib-bearing lumbar-type vertebral bodies. Alignment: Levoconvex curvature centered at L2-3 and fused grade 1 anterolisthesis at L3-4, similar to prior. Vertebral Body Height: Chronic and benign-appearing mild superior endplate depressions at T12 and L1. Chronic loss of vertebral body height at L2-3 with associated ankylosis post discectomy. Bone Marrow and Discs: Acute to subacute sacral insufficiency fracture with ventral cortical irregularity at S2 and mild corresponding marrow edema extending to the sacral ala No aggressive focal lesion or pathologic marrow infiltration. Postoperative changes of L2-3 discectomy and multilevel lumbar dorsal decompression with posterior segmental interbody fusion at T12-L5 Conus: Normal position and signal intensity. 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 No abnormal intramedullary or leptomeningeal enhancement. Paraspinal Soft Tissues: Disruption dorsal paraspinous soft tissues in the laminectomy bed without focal dorsal paraspinous, paravertebral, or prevertebral fluid collection. Atrophy of the caudal erector spinae, iliopsoas muscles, and gluteal musculature. T12-L1: No significant spinal canal or neural foraminal stenosis. L1-L2: No significant spinal canal stenosis. Mild neural foraminal stenoses due to endplate spurring and facet hypertrophy. L2-L3: Moderate eccentric spinal canal stenosis due to granulation tissue/scarring . Bilateral subarticular recess narrowing and severe neural foraminal stenoses with contributions from bony alkalosis and facet hypertrophy. L3-L4: No significant spinal canal stenosis following dorsal decompression. Bilateral subarticular recess narrowing and severe neural foraminal stenoses with contributions from fused grade 1 anterolisthesis, endplate spurring, and facet hypertrophy. L4-L5: No significant spinal canal or right neural foraminal stenosis. Mild left neural foraminal stenosis due to endplate spurring and facet hypertrophy. L5-S1: No significant spinal canal or right neural foraminal stenosis. Moderate left neural foraminal stenosis due to endplate spurring and facet hypertrophy. Sacrum: Acute-subacute sacral insufficiency fracture at S2 as detailed. The sacroiliac joints are normally approximated. IMPRESSION: Acute-subacute sacral insufficiency fracture at S2. Postoperative and degenerative changes of the lumbar spine with linear granulation tissue at L2-3 and tethering of the cauda equina suggesting sequelae of chronic arachnoiditis. No evidence of osteomyelitis discitis or epidural abscess. MACRO: None RADIOLOGY Hector Li MD - 04/05/2024 EXAMINATION: MR L-SPINE W/+W/O 04/05/2024 05:30 PM CLINICAL HISTORY: Low back pain, 6 weeks or more; Neurologic deficit consistent with l-spine pathology; S/P lumbar surgery; S/P physical therapy; X-ray L-spine done; prior h/o T12, L1 spinal cord injury, epidural abscess in 2021 , h/o multiple back surgeries, lumbar fusion. ASSOCIATED DIAGNOSIS: Paraplegia (HCC) History of lumbar fusion ORDERING PROVIDER: VAISHALI [facility] TECHNOLOGISTS NOTE: COMPARISON: Lumbar radiographs from 02/10/2024 TECHNIQUE: Patient questionnaire was completed and was reviewed by MRI personnel prior to the patient entering the scanner. Multiplanar, multisequence MR imaging of the lumbar spine was performed with and without intravenous contrast. with and without. INTRA-PROCEDURE MEDS: Gadoterate Meglumine (DOTAREM) 10 MMOL/20ML solution 17 mL Route: Intravenous Push FINDINGS: Counting reference: Lumbosacral junction. L4-5 is at the level of the iliac crests, and there are 5 nonrib-bearing lumbar-type vertebral bodies. Alignment: Levoconvex curvature centered at L2-3 and fused grade 1 anterolisthesis at L3-4, similar to prior. Vertebral Body Height: Chronic and benign-appearing mild superior endplate depressions at T12 and L1. Chronic loss of vertebral body height at L2-3 with associated ankylosis post discectomy. Bone Marrow and Discs: Acute to subacute sacral insufficiency fracture with ventral cortical irregularity at S2 and mild corresponding marrow edema extending to the sacral ala No aggressive focal lesion or pathologic marrow infiltration. Postoperative changes of L2-3 discectomy and multilevel lumbar dorsal decompression with posterior segmental interbody fusion at T12-L5 Conus: Normal position and signal intensity. 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 No abnormal intramedullary or leptomeningeal enhancement. Paraspinal Soft Tissues: Disruption dorsal paraspinous soft tissues in the laminectomy bed without focal dorsal paraspinous, paravertebral, or prevertebral fluid collection. Atrophy of the caudal erector spinae, iliopsoas muscles, and gluteal musculature. T12-L1: No significant spinal canal or neural foraminal stenosis. L1-L2: No significant spinal canal stenosis. Mild neural foraminal stenoses due to endplate spurring and facet hypertrophy. L2-L3: Moderate eccentric spinal canal stenosis due to granulation tissue/scarring . Bilateral subarticular recess narrowing and severe neural foraminal stenoses with contributions from bony alkalosis and facet hypertrophy. L3-L4: No significant spinal canal stenosis following dorsal decompression. Bilateral subarticular recess narrowing and severe neural foraminal stenoses with contributions from fused grade 1 anterolisthesis, endplate spurring, and facet hypertrophy. L4-L5: No significant spinal canal or right neural foraminal stenosis. Mild left neural foraminal stenosis due to endplate spurring and facet hypertrophy. L5-S1: No significant spinal canal or right neural foraminal stenosis. Moderate left neural foraminal stenosis due to endplate spurring and facet hypertrophy. Sacrum: Acute-subacute sacral insufficiency fracture at S2 as detailed. The sacroiliac joints are normally approximated. IMPRESSION: Acute-subacute sacral insufficiency fracture at S2. Postoperative and degenerative changes of the lumbar spine with linear granulation tissue at L2-3 and tethering of the cauda equina suggesting sequelae of chronic arachnoiditis. No evidence of osteomyelitis discitis or epidural abscess. MACRO: None [facility] [place] Rad[facility] Study observation (narrative) [facility] MR Lumbar spine WO and W con trast IVOrdered By: Hector Li on 04-05-2024 [facility] Work Phone: Patient Instructionson 02-09 Phlebotomist Lab Assistant Authentication Interface Message Text - xrays of the low back - can schedule the MRI of the lumbar spine - I recommend seeing one of my colleagues in the spinal cord injury clinic [facility] Progress Noteson 02-10-2024 Phlebotomist Lab Assistant Authentication Interface Message Text Physical Medicine and Rehabilitation [facility] Consult 02/10/2024 Chief Complaint: Low back pain HPI: Anmol Reynolds is a pleasant 63 year old male who presents to the clinic today for opinion regarding spinal cord injury. 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 He subsequently had an additional lumbars surgery and eventually a T12-L5 fusion. He was diagnosed with lower thoracic/upper lumbar level paraplegia. He reports no movement or sensation in his lower extremities. He does have neuropathic pain in his legs, described as sharp and burning. He is currently in a nursing facility, [facility]. Bladder management is via Santana catheter. Bowel management with suppositories per his report. Severity: Pain Score: 8/10 (legs) He is treated by a pain management physician in his on Dilaudid and Lyrica for pain control. Current Outpatient Medications Medication Sig Dispense Refill zinc sulfate (ZINCATE) 220 (50 Zn) MG capsule Take 220 mg by mouth daily. oxycodone (ROXICODONE) 15 MG immediate release tablet pregabalin (LYRICA) 200 MG capsule Take 200 mg by mouth 3 times daily. insulin lispro (HumaLOG) 100 UNIT/ML injection Inject 0-28 Units under the skin. insulin glargine (LANTUS SOLOSTAR/BASAGLAR KWIKPEN) 100 UNIT/ML pen Inject 45 Units under the skin. cyclobenzaprine (FLEXERIL) 10 MG tablet No current facility-administered medications for this visit. No Known Allergies Social History Socioeconomic History Marital status: Unknown Review of Systems: GI: as per HPI : as per HPI Neurologic: As per HPI MSK: Per above HPI PHYSICAL EXAM: Vitals Recorded in This Encounter 02/10/2024 1307 Pain Score: 8 General: NAD, well developed, male Psychiatric: appropriate mood AND affect. Cardiovascular: Normal pedal pulses; no LE edema. Respiratory: Normal rate; unlabored breathing. Skin: Intact; no erythema; no ecchymosis or rash. Lymphatic: No lymphadenopathy or lymphedema. NEURO: Alert and appropriate. Speech fluent, conversing appropriately. Motor: MMT: 0/0 b/L Le's Sensation: Light touch: absent below the T12 level Gait: in power WC Imaging: CT L spine 2021: IMPRESSION: 1. Interval new surgical fusion of T12/L1 and L4/L5, with interval removal of the hardware at L2/L3. 2. Posterior emphysematous changes are noted in the paraspinal soft tissues. This could be either secondary to postsurgical changes or infection. 3. The edema and inflammation involving the paraspinal soft tissues are slightly decreased since the prior study. Abscesses within the psoas muscles bilaterally have resolved. 4. However, there is worsening erosive changes noted at L2/L3, with increasing posterior angulation as described. Overall the findings are suspicious for persistent discitis/osteomyeliti s. MRI L 02/2022: IMPRESSION: 1. Interval posterior spinal fusion extending from T12-L5. Susceptibility from surgical hardware limits evaluation of adjacent regions. 2. Large multiloculated fluid collection with mild peripheral enhancement extending from T12 vertebral level down to L4-L5 intervertebral disc level. This appears to be greatest at L2-L3 intervertebral disc. Although this may be postsurgical, possibility of abscess or pseudomeningocele would not be excluded by imaging. Consider short interval follow-up examination. 3. Persistent nonspecific edema involving posterior paraspinous structures and paravertebral region at L2-L3. Edema within bilateral psoas muscle appears decreased since 01/12/2022. 4. Persistent abnormal appearance of L2-L3 intervertebral disc, with unchanged vertebral body height loss involving L2 and L3 vertebral bodies. Correlate with serial CRP levels. 5. Persistent fluid signal within L1-L2, L4-L5, and L5-S1 intervertebral discs, without evidence of associated endplate destruction. This is favored to be degenerative. Early discitis would be less likely but not excluded. 6. Suspected severe spinal canal stenosis at L2-L3. Suspected mild to moderate spinal canal stenosis at L1-L2. Mild spinal canal stenosis at L3-L4. Additional multilevel degenerative changes with neural foraminal stenosis and spinal canal stenosis, as detailed above. Impression: Anmol Reynolds is a 63 year old male with: T12 level SCI. Plan: Orders AND Meds Signed During This Encounter zinc sulfate (ZINCATE) 220 (50 Zn) MG capsule oxycodone (ROXICODONE) 15 MG immediate release tablet pregabalin (LYRICA) 200 MG capsule insulin lispro (HumaLOG) 100 UNIT/ML injection insulin glargine (LANTUS SOLOSTAR/BASAGLAR KWIKPEN) 100 UNIT/ML pen cyclobenzaprine (FLEXERIL) 10 MG tablet - discussed options. Pt requesting updated imaging. - xrays of the low back - can schedule the MRI of the lumbar spine - I recommend seeing one of my colleagues in the spinal cord injury clinic for [facility] SCI related tano (more content not included)... [facility] Phlebotomist Lab Assistant Authentication Interface Message Text Vitals not obtained per provider's instructions. [facility] XR L-SPINE AP+LATERAL 2-3 EWSon 02-10-2024 XR L-SPINE AP+LATERAL 2-3 VIEWS EXAMINATION: XR L-SPINE AP+LATERAL 2-3 VIEWS 02/10/2024 02:27 PM CLINICAL HISTORY: lower thoracic, upper lumbar pareplegia, h/o lumbar surgery. Obtaining updated MRI. Need pre xray ASSOCIATED DIAGNOSIS: Paraplegia (HCC) History of lumbar fusion ORDERING PROVIDER: [facility] NOTE: COMPARISON: None FINDINGS: There is mild levoscoliosis of lumbar spine. Lumbar fusion is noted with hardware extending from T12 to L5. Disc spacer is demonstrated L2-L3 level. Moderate compression of L3 is noted. L2-L3 disc space is obliterated. Decompression laminectomy is noted at L2-L3 level. Process and narrowing of facets is noted. Findings at L2-L3 level is suggestive of remote trauma with degenerative changes and sclerosis of the facets. Remote infection of posterior elements at L2-L3 level is noted excluded. There is slight retrolisthesis of L1 over L2. Considerable narrowing of L5-S1 disc spaces noted with degenerative disc disease. IMPRESSION: Postsurgical changes. Considerable degenerative changes involving the posterior abdomen. Spinal fusion hardware is intact. There is sclerosis and irregularity of the facets at L2-L3 level prior trauma. L2-L3 disc space is intact. Remote compression of L2 on L3 segments is considered. MACRO: None Normal [facility] XR Lumbar spine AP and Later [place] 02-10-2024 EXAMINATION: XR L-SPINE AP+LATERAL 2-3 VIEWS 02/10/2024 02:27 PM CLINICAL HISTORY: lower thoracic, upper lumbar pareplegia, h/o lumbar surgery. Obtaining updated MRI. Need pre xray ASSOCIATED DIAGNOSIS: Paraplegia (HCC) History of lumbar fusion ORDERING PROVIDER: VAISHALI [facility] NOTE: COMPARISON: None FINDINGS: There is mild levoscoliosis of lumbar spine. Lumbar fusion is noted with hardware extending from T12 to L5. Disc spacer is demonstrated L2-L3 level. Moderate compression of L3 is noted. L2-L3 disc space is obliterated. Decompression laminectomy is noted at L2-L3 level. Process and narrowing of facets is noted. Findings at L2-L3 level is suggestive of remote trauma with degenerative changes and sclerosis of the facets. Remote infection of posterior elements at L2-L3 level is noted excluded. There is slight retrolisthesis of L1 over L2. Considerable narrowing of L5-S1 disc spaces noted with degenerative disc disease. IMPRESSION: Postsurgical changes. Considerable degenerative changes involving the posterior abdomen. Spinal fusion hardware is intact. There is sclerosis and irregularity of the facets at L2-L3 level prior trauma. L2-L3 disc space is intact. Remote compression of L2 on L3 segments is considered. MACRO: None RADIOLOGY Juan William MD - 02/10/2024 EXAMINATION: XR L-SPINE AP+LATERAL 2-3 VIEWS 02/10/2024 02:27 PM CLINICAL HISTORY: lower thoracic, upper lumbar pareplegia, h/o lumbar surgery. Obtaining updated MRI. Need pre xray ASSOCIATED DIAGNOSIS: Paraplegia (HCC) History of lumbar fusion ORDERING PROVIDER: VAISHALI [facility] [employer] NOTE: COMPARISON: None FINDINGS: There is mild levoscoliosis of lumbar spine. Lumbar fusion is noted with hardware extending from T12 to L5. Disc spacer is demonstrated L2-L3 level. Moderate compression of L3 is noted. L2-L3 disc space is obliterated. Decompression laminectomy is noted at L2-L3 level. Process and narrowing of facets is noted. Findings at L2-L3 level is suggestive of remote trauma with degenerative changes and sclerosis of the facets. Remote infection of posterior elements at L2-L3 level is noted excluded. There is slight retrolisthesis of L1 over L2. Considerable narrowing of L5-S1 disc spaces noted with degenerative disc disease. IMPRESSION: Postsurgical changes. Considerable degenerative changes involving the posterior abdomen. Spinal fusion hardware is intact. There is sclerosis and irregularity of the facets at L2-L3 level prior trauma. L2-L3 disc space is intact. Remote compression of L2 on L3 segments is considered. MACRO: None [facility] Radiology Study observation (narrative) [facility] XR Lumbar spine AP and Later alOrdered By: Juan William on 02-10-2024 [facility] Work Phone: Basophil percentageOrdered B y: Tab Dupont on 01-15-2024 Chloride [Moles/Vol] 109 mmol/L 98-107 [facility] Glucose [Mass/Vol] 122 mg/dL 74-106 [facility] Comment on above: Fasting Glucose resu lt from 100 to 125 mg/dL suggests IMPAIRED HOMEOSTASIS per A.D.A. criteria. Hemoglobin (Bld) [Mass/Vol] 13.0 g/dL 13.0-16.5 [facility] Potassium [Moles/Vol] 3.8 mmol/L 3.5-5.1 [facility] Sodium [Moles/Vol] 139 mmol/L 136-145 [facility] WBC (Bld) [#/Vol] 6.6 10*3/uL 4.4-11.0 [facility] Determination of erythrocyte mean corpuscular volume (MCV)Ordered By: Tab Dupont on 01-15-2024 MCV (RBC) [Entitic vol] 94.3 fL 80-[address] [facility] Erythrocyte distribution wid th ratioOrdered By: Tab Dupont on 01-15-2024 Erythrocyte distribution width (RBC) [Ratio] 13.8 % 11.6-14.6 [facility] Erythrocyte distribution wid th standard deviationOrdered By: Tab Dupont on 01-15-2024 Erythrocyte distribution width (RBC) [Entitic vol] 48.0 fL 35.1-43.9 [facility] Hematocrit Auto (Bld) [Volum e fraction]Ordered By: Tab Dupont on 01-15-2024 Hematocrit (Bld) [Volume fraction] 39.5 % 40-54 [facility] Laboratory - Chemistry and C hemistry - challengeOrdered By: Tab Dupont on 01-15-2024 CO2 [Moles/Vol] 26.0 mmol/L 21.0-32.0 [facility] Urea nitrogen/Creatinine [Mass ratio] 21.6 mg/mg 10-20 [facility] - Hematology and Cell countsOrdered By: Tab Dupont on 01-15-2024 MCH (RBC) [Entitic mass] 31.0 pg 27.0-32.0 [facility] MCHC (RBC) [Mass/Vol] 32.9 g/dL 32-36 [facility] Platelet mean volume (Bld) [Entitic vol] 10.4 fL 6.2-12.0 [facility] Platelets (Bld) [#/Vol] 257 10*3/uL 150-450 [facility] No Panel InformationOrdered By: Tab Dupont on 01-15-2024 Estimated GFR (MDRD) Amer 236 mL/min >60 [facility] Comment on above: GFR Calc Estimated GFR (MDRD) Non-Af Amer 195 mL/min >60 [facility] Comment on above: Non- GFR Calc RBC Auto (Bld) [#/Vol]Ordere d By: Tab Dupont on 01-15-2024 RBC (Bld) [#/Vol] 4.19 10*6/uL 4.6-6.2 [facility] Serum or plasma calcium randall urement (mass/volume)Ordered By: Tab Dupont on 01-15-2024 Calcium [Mass/Vol] 8.7 mg/dL 8.5-10.1 [facility] Serum or plasma creatinine m easurement (mass/volume)Ordered By: Tab Dupont on 01-15-2024 Creatinine [Mass/Vol] 0.46 mg/dL 0.70-1.30 [facility] Comment on above: The validity of the calculated GFR & GFRAA in patients over 70 years has not been determined. Clinical correlation is essential. Serum or plasma urea nitroge n measurement (mass/volume)Ordered By: Tab Dupont on 01-15-2024 Urea nitrogen [Mass/Vol] 10 mg/dL 7-18 [facility] Thin prep Papanicolaou smear with manual screeningOrdered By: Tab Dupont on 01-15-2024 Thin prep Papanicolaou smear with manual screening 4 5-15 [facility] Basophil percentageOrdered B y: Tab Dupont on 01-07-2024 Chloride [Moles/Vol] 112 mmol/L 98-107 [facility] Glucose [Mass/Vol] 114 mg/dL 74-106 [facility] Comment on above: Fasting Glucose resu lt from 100 to 125 mg/dL suggests IMPAIRED HOMEOSTASIS per A.D.A. criteria. Hemoglobin (Bld) [Mass/Vol] 13.0 g/dL 13.0-16.5 [facility] Potassium [Moles/Vol] 3.8 mmol/L 3.5-5.1 [facility] Sodium [Moles/Vol] 140 mmol/L 136-145 [facility] WBC (Bld) [#/Vol] 8.1 10*3/uL 4.4-11.0 [facility] Determination of erythrocyte mean corpuscular volume (MCV)Ordered By: Tab Dupont on 01-07-2024 MCV (RBC) [Entitic vol] 92.6 fL 80-[address] [facility] Erythrocyte distribution wid th ratioOrdered By: Tab Dupont on 01-07-2024 Erythrocyte distribution width (RBC) [Ratio] 13.8 % 11.6-14.6 [facility] Erythrocyte distribution wid th standard deviationOrdered By: Tab Dupont on 01-07-2024 Erythrocyte distribution width (RBC) [Entitic vol] 46.5 fL 35.1-43.9 [facility] Hematocrit Auto (Bld) [Volum e fraction]Ordered By: Tab Dupont on 01-07-2024 Hematocrit (Bld) [Volume fraction] 38.9 % 40-54 [facility] - Chemistry and C hemistry - challengeOrdered By: Tab Dupont on 01-07-2024 CO2 [Moles/Vol] 23.0 mmol/L 21.0-32.0 [facility] Urea nitrogen/Creatinine [Mass ratio] 25.5 mg/mg 10-20 [facility] - Hematology and Cell countsOrdered By: Tab Dupont on 01-07-2024 MCH (RBC) [Entitic mass] 31.0 pg 27.0-32.0 [facility] MCHC (RBC) [Mass/Vol] 33.4 g/dL 32-36 [facility] Platelet mean volume (Bld) [Entitic vol] 10.2 fL 6.2-12.0 [facility] Platelets (Bld) [#/Vol] 282 10*3/uL 150-450 [facility] No Panel InformationOrdered By: Tab Dupont on 01-07-2024 Estimated GFR (MDRD) Amer 257 mL/min >60 [facility] Comment on above: GFR Calc Estimated GFR (MDRD) Non-Af Amer 212 mL/min >60 [facility] Comment on above: Non- GFR Calc RBC Auto (Bld) [#/Vol]Ordere d By: Tab Dupont on 01-07-2024 RBC (Bld) [#/Vol] 4.20 10*6/uL 4.6-6.2 [facility] Serum or plasma calcium randall urement (mass/volume)Ordered By: Tab Dupont on 01-07-2024 Calcium [Mass/Vol] 8.5 mg/dL 8.5-10.1 [facility] Serum or plasma creatinine m easurement (mass/volume)Ordered By: Tab Dupont on 01-07-2024 Creatinine [Mass/Vol] 0.43 mg/dL 0.70-1.30 [facility] Comment on above: The validity of the calculated GFR & GFRAA in patients over 70 years has not been determined. Clinical correlation is essential. Serum or plasma urea nitroge n measurement (mass/volume)Ordered By: Tab Dupont on 01-07-2024 Urea nitrogen [Mass/Vol] 11 mg/dL 7-18 [facility] Thin prep Papanicolaou smear with manual screeningOrdered By: Tab Dupont on 01-07-2024 Thin prep Papanicolaou smear with manual screening 5 5-15 [facility] Whole blood hemoglobin A1c/t otal hemoglobin ratio (mass fraction)Ordered By: Tab Dupont on 01-04-2024 HbA1c (Bld) [Mass fraction] 6.3 % 3.8-5.6 [facility] Comment on above: Normal < 5.7 % Predi abetic 5.7 - 6.4 % Diabetic >or= 6.5 % Please note range changes. Basophil percentageOrdered B y: Tab Dupont on 12-31-2023 Chloride [Moles/Vol] 107 mmol/L 98-107 [facility] Glucose [Mass/Vol] 145 mg/dL 74-106 [facility] Comment on above: Fasting Glucose resu lt greater than or equal to 126 mg/dL suggests DIABETES MELLITUS per A.D.A. criteria. Hemoglobin (Bld) [Mass/Vol] 12.5 g/dL 13.0-16.5 [facility] Potassium [Moles/Vol] 3.4 mmol/L 3.5-5.1 [facility] Sodium [Moles/Vol] 136 mmol/L 136-145 [facility] WBC (Bld) [#/Vol] 7.7 10*3/uL 4.4-11.0 [facility] Determination of erythrocyte mean corpuscular volume (MCV)Ordered By: Tab Dupont on 12-31-2023 MCV (RBC) [Entitic vol] 93.0 fL 80-[address] [facility] Erythrocyte distribution wid th ratioOrdered By: Tab Dupont on 12-31-2023 Erythrocyte distribution width (RBC) [Ratio] 14.1 % 11.6-14.6 [facility] Erythrocyte distribution wid th standard deviationOrdered By: Tab Dupont on 12-31-2023 Erythrocyte distribution width (RBC) [Entitic vol] 48.5 fL 35.1-43.9 [facility] Hematocrit Auto (Bld) [Volum e fraction]Ordered By: Tab uDpont on 12-31-2023 Hematocrit (Bld) [Volume fraction] 37.0 % 40-54 [facility] - Chemistry and C hemistry - challengeOrdered By: Tab Dupont on 12-31-2023 CO2 [Moles/Vol] 23.0 mmol/L 21.0-32.0 [facility] Urea nitrogen/Creatinine [Mass ratio] 29.1 mg/mg 10-20 [facility] - Hematology and Cell countsOrdered By: Tab Dupont on 12-31-2023 MCH (RBC) [Entitic mass] 31.4 pg 27.0-32.0 [facility] MCHC (RBC) [Mass/Vol] 33.8 g/dL 32-36 [facility] Platelet mean volume (Bld) [Entitic vol] 11.0 fL 6.2-12.0 [facility] Platelets (Bld) [#/Vol] 199 10*3/uL 150-450 [facility] No Panel InformationOrdered By: Tab Dupont on 12-31-2023 Estimated GFR (MDRD) Amer 299 mL/min >60 [facility] Comment on above: GFR Calc Estimated GFR (MDRD) Non-Af Amer 247 mL/min >60 [facility] Comment on above: Non- GFR Calc RBC Auto (Bld) [#/Vol]Ordere d By: Tab Dupont on 12-31-2023 RBC (Bld) [#/Vol] 3.98 10*6/uL 4.6-6.2 [facility] Serum or plasma calcium randall urement (mass/volume)Ordered By: Tab Dupont on 12-31-2023 Calcium [Mass/Vol] 8.6 mg/dL 8.5-10.1 [facility] Serum or plasma creatinine m easurement (mass/volume)Ordered By: Tab Dupont on 12-31-2023 Creatinine [Mass/Vol] 0.38 mg/dL 0.70-1.30 [facility] Comment on above: The validity of the calculated GFR & GFRAA in patients over 70 years has not been determined. Clinical correlation is essential. Serum or plasma urea nitroge n measurement (mass/volume)Ordered By: Tab Dupont on 12-31-2023 Urea nitrogen [Mass/Vol] 11 mg/dL 7-18 [facility] Thin prep Papanicolaou smear with manual screeningOrdered By: Tab Dupont on 12-31-2023 Thin prep Papanicolaou smear with manual screening 6 5-15 [facility] Basophil percentageOrdered B y: Tab Dupont on 12-04-2023 Basophil percentage 25-50 SEEN /hpf 0-5 [facility] Bilirubin Test strip Ql (U)O rdered By: Tab Dupont on 12-04-2023 Bilirubin Ql (U) Negative Negative [facility] Calcium oxalate crystals det ection in urine sediment by light microscopyOrdered By: Tab Dupont on 12-04-2023 Calcium oxalate crystals LM Ql (Urine sed) 2+ /hpf [facility] Culture, urineOrdered By: Vinh Lehman on 12-04-2023 Bacteria identified Cx Nom (U) ESBL Klebsiella pneumoniae pne [facility] Bacteria identified Cx Nom (U) Proteus mirabilis [facility] Ketones Test strip Ql (U)Ord ered By: Tab Dupont on 12-04-2023 Ketones Ql (U) 5 mg/dl Negative [facility] Magnesium ammonium phosphate crystal detectionOrdered By: Tab Dupont on 12-04-2023 Triple phosphate crystals LM Ql (Urine sed) 2+ /hpf [facility] Mucus LM Ql (Urine sed)Order ed By: Tab Dupont on 12-04-2023 Mucus Ql (Urine sed) 0 SEEN /hpf [facility] Nitrite Test strip Ql (U)Ord ered By: Tab Dupont on 12-04-2023 Nitrite Ql (U) Negative Negative [facility] No Panel InformationOrdered By: Tab Dupont on 12-04-2023 Urine RBC 10-25 SEEN /hpf 0-5 [facility] Protein Test strip Ql (U)Ord ered By: Tab Dupont on 12-04-2023 Protein Ql (U) 30 mg/dl Negative [facility] Squamous epithelial cells de tection in urine sediment by light microscopyOrdered By: Tab Dupont on 12-04-2023 Epithelial cells.squamous LM Ql (Urine sed) 0 SEEN /hpf 0-5 [facility] Urine blood detectionOrdered By: Tab Dupont on 12-04-2023 RBC Ql (U) 150 /ul Negative [facility] Urine clarityOrdered By: Regino Dupont on 12-04-2023 Clarity (U) Cloudy Clear [facility] Urine color determinationOrd ered By: Tab Dupont on 12-04-2023 Color (U) Yellow Yellow [facility] Urine glucose detectionOrder ed By: Tab Dupont on 12-04-2023 Glucose Ql (U) Normal mg/dl Normal [facility] Urine leukocyte esterase det ection by dipstickOrdered By: Tab Dupont on 12-04-2023 Leukocyte esterase Test strip Ql (U) 500 /ul Negative [facility] Urine pHOrdered By: Tab cordova on 12-04-2023 pH (U) 8.0 [pH] 5.0 - 8.0 [facility] Urine sediment bacteria coun t by microscopy (number/high power field)Ordered By: Tab Dupont on 12-04-2023 Bacteria LM.HPF (Urine sed) [#/Area] 3 /[HPF] None Seen [facility] Urine specific gravity measu rementOrdered By: Tab Dupont on 12-04-2023 Specific gravity (U) [Rel density] 1.015 1.002-1.030 [facility] Urine urobilinogen measureme ntOrdered By: Tab Dupont on 12-04-2023 Urobilinogen Ql (U) Normal mg/dl Normal [facility] Amorphous sediment detection in urine sediment by light microscopyOrdered By: Tab Dupont on 10-25-2023 Amorphous sediment LM Ql (Urine sed) 3+ [facility] Basophil percentageOrdered B y: Tab Dupont on 10-25-2023 Basophil percentage 0-5 SEEN /hpf 0-5 [facility] Bilirubin Test strip Ql (U)O rdered By: Tab Dupont on 10-25-2023 Bilirubin Ql (U) Negative Negative [facility] Culture, urineOrdered By: Vihn Lehman on 10-25-2023 Bacteria identified Cx Nom (U) ESBL Klebsiella pneumoniae pne [facility] Bacteria identified Cx Nom (U) Proteus mirabilis [facility] Ketones Test strip Ql (U)Ord ered By: Tab Dupont on 10-25-2023 Ketones Ql (U) Negative Negative [facility] Mucus LM Ql (Urine sed)Order ed By: Tab Dupont on 10-25-2023 Mucus Ql (Urine sed) 0 SEEN /hpf [facility] Nitrite Test strip Ql (U)Ord ered By: Tab Dupont on 10-25-2023 Nitrite Ql (U) Negative Negative [facility] No Panel InformationOrdered By: Tab Dupont on 10-25-2023 Urine RBC 0-5 SEEN /hpf 0-5 [facility] Protein Test strip Ql (U)Ord ered By: Tab Dupont on 10-25-2023 Protein Ql (U) 500 mg/dl Negative [facility] Squamous epithelial cells de tection in urine sediment by light microscopyOrdered By: Tab Dupont on 10-25-2023 Epithelial cells.squamous LM Ql (Urine sed) 0 SEEN /hpf 0-5 [facility] Urine blood detectionOrdered By: Tab Dupont on 10-25-2023 RBC Ql (U) 150 /ul Negative [facility] Urine clarityOrdered By: Regino Dupont on 10-25-2023 Clarity (U) Cloudy Clear [facility] Urine color determinationOrd ered By: Tab Dupont on 10-25-2023 Color (U) YELLOW Yellow [facility] Urine glucose detectionOrder ed By: Tab Dupont on 10-25-2023 Glucose Ql (U) Normal mg/dl Normal [facility] Urine leukocyte esterase det ection by dipstickOrdered By: Tab Dupont on 10-25-2023 Leukocyte esterase Test strip Ql (U) 500 /ul Negative [facility] Urine pHOrdered By: Tab cordova on 10-25-2023 pH (U) 8.0 [pH] 5.0 - 8.0 [facility] Urine sediment bacteria coun t by microscopy (number/high power field)Ordered By: Tab Dupont on 10-25-2023 Bacteria LM.HPF (Urine sed) [#/Area] 1 /[HPF] None Seen [facility] Urine sediment uric acid cry stal count by microscopy (number/high power field)Ordered By: Tab Dupont on 10-25-2023 Urate crystals LM.HPF (Urine sed) [#/Area] 3 /[HPF] [facility] Urine specific gravity measu rementOrdered By: Tab Dupont on 10-25-2023 Specific gravity (U) [Rel density] 1.010 1.002-1.030 [facility] Urine urobilinogen measureme ntOrdered By: Tab Dupont on 10-25-2023 Urobilinogen Ql (U) Normal mg/dl Normal [facility] Whole blood hemoglobin A1c/t otal hemoglobin ratio (mass fraction)Ordered By: Tab Dupont on 08-10-2023 HbA1c (Bld) [Mass fraction] 6.2 % 3.8-5.6 [facility] Comment on above: Normal < 5.7 % Predi abetic 5.7 - 6.4 % Diabetic >or= 6.5 % Please note range changes. Whole blood hemoglobin A1c/t otal hemoglobin ratio (mass fraction)Ordered By: Tab Dupont on 08-07-2023 HbA1c (Bld) [Mass fraction] 6.2 % 3.8-5.6 [facility] Comment on above: Normal < 5.7 % Predi abetic 5.7 - 6.4 % Diabetic >or= 6.5 % Please note range changes. Amorphous sediment detection in urine sediment by light microscopyOrdered By: Tab Dupont on 07-31-2023 Amorphous sediment LM Ql (Urine sed) 2+ [facility] Basophil percentageOrdered B y: Tab Dupont on 07-31-2023 Basophil percentage 50-100 SEEN /hpf 0-5 [facility] Bilirubin Test strip Ql (U)O rdered By: Tab Dupont on 07-31-2023 Bilirubin Ql (U) Negative Negative [facility] Culture, urineOrdered By: Vinh Lehman on 07-31-2023 Bacteria identified Cx Nom (U) ESBL Klebsiella pneumoniae pne [facility] Bacteria identified Cx Nom (U) Proteus mirabilis [facility] Ketones Test strip Ql (U)Ord ered By: Tab Dupont on 07-31-2023 Ketones Ql (U) Negative Negative [facility] Mucus LM Ql (Urine sed)Order ed By: Tab Dupont on 07-31-2023 Mucus Ql (Urine sed) 0 SEEN /hpf [facility] Nitrite Test strip Ql (U)Ord ered By: Tab Dupont on 07-31-2023 Nitrite Ql (U) Negative Negative [facility] Protein Test strip Ql (U)Ord ered By: Tab Dupont on 07-31-2023 Protein Ql (U) 30 mg/dl Negative [facility] Squamous epithelial cells de tection in urine sediment by light microscopyOrdered By: Tab Dupont on 07-31-2023 Epithelial cells.squamous LM Ql (Urine sed) 0 SEEN /hpf 0-5 [facility] Urine blood detectionOrdered By: Tab Dupont on 07-31-2023 RBC Ql (U) 250 /ul Negative [facility] RBC Ql (U) 10-25 SEEN /hpf 0-5 [facility] Urine clarityOrdered By: Regino Dupont on 07-31-2023 Clarity (U) Cloudy Clear [facility] Urine color determinationOrd ered By: Tab Dupont on 07-31-2023 Color (U) Yellow Yellow [facility] Urine glucose detectionOrder ed By: Tab Dupont on 07-31-2023 Glucose Ql (U) Normal mg/dl Normal [facility] Urine leukocyte esterase det ection by dipstickOrdered By: Tab Dupont on 07-31-2023 Leukocyte esterase Test strip Ql (U) 500 /ul Negative [facility] Urine pHOrdered By: Tab cordova on 07-31-2023 pH (U) 7.0 [pH] 5.0 - 8.0 [facility] Urine sediment bacteria coun t by microscopy (number/high power field)Ordered By: Tab Dupont on 07-31-2023 Bacteria LM.HPF (Urine sed) [#/Area] 0 /[HPF] None Seen [facility] Urine specific gravity measu rementOrdered By: Tab Dupont on 07-31-2023 Specific gravity (U) [Rel density] 1.010 1.002-1.030 [facility] Urobilinogen Auto test strip Ql (U)Ordered By: Tab Dupont on 07-31-2023 Urobilinogen Ql (U) Normal mg/dl Normal [facility] Basophil percentageOrdered B y: Tab Dupont on 06-29-2023 Chloride [Moles/Vol] 108 mmol/L 98-107 [facility] Glucose [Mass/Vol] 169 mg/dL 74-106 [facility] Comment on above: Fasting Glucose resu lt greater than or equal to 126 mg/dL suggests DIABETES MELLITUS per A.D.A. criteria. Potassium [Moles/Vol] 3.4 mmol/L 3.5-5.1 [facility] Sodium [Moles/Vol] 139 mmol/L 136-145 [facility] WBC (Bld) [#/Vol] 6.4 10*3/uL 4.4-11.0 [facility] Blood erythrocytes count (nu mber/volume)Ordered By: Tab Dupont on 06-29-2023 RBC (Bld) [#/Vol] 4.05 10*6/uL 4.6-6.2 [facility] Blood hemoglobin measurement (mass/volume)Ordered By: Tab Dupont on 06-29-2023 Hemoglobin (Bld) [Mass/Vol] 12.6 g/dL 13.0-16.5 [facility] Blood platelet mean volumeOr dered By: Tab Dupont on 06-29-2023 Platelet mean volume (Bld) [Entitic vol] 10.0 fL 6.2-12.0 [facility] Determination of erythrocyte mean corpuscular volume (MCV)Ordered By: Tab Dupont on 06-29-2023 MCV (RBC) [Entitic vol] 97.3 fL 80-94 [facility] Hematocrit Auto (Bld) [Volum e fraction]Ordered By: Tab Dupont on 06-29-2023 Hematocrit (Bld) [Volume fraction] 39.4 % 40-54 [facility] - Chemistry and C hemistry - challengeOrdered By: Tab Dupont on 06-29-2023 CO2 [Moles/Vol] 24.0 mmol/L 21.0-32.0 [facility] Urea nitrogen/Creatinine [Mass ratio] 28.8 mg/mg 10-20 [facility] - Hematology and Cell countsOrdered By: Tab Dupont on 06-29-2023 Erythrocyte distribution width (RBC) [Entitic vol] 48.6 fL 35.1-43.9 [facility] Erythrocyte distribution width (RBC) [Ratio] 13.6 % 11.6-14.6 [facility] MCH (RBC) [Entitic mass] 31.1 pg 27.0-32.0 [facility] MCHC Auto (RBC) [Mass/Vol]Or dered By: Tab Dupont on 06-29-2023 MCHC (RBC) [Mass/Vol] 32.0 g/dL 32-36 [facility] No Panel InformationOrdered By: Tab Dupont on 06-29-2023 Estimated GFR (MDRD) Amer 207 mL/min >60 [facility] Comment on above: GFR Calc Estimated GFR (MDRD) Non-Af Amer 171 mL/min >60 [facility] Comment on above: Non- GFR Calc Platelets bldOrdered By: Pet xenia Dupont on 06-29-2023 Platelets (Bld) [#/Vol] 243 10*3/uL 150-450 [facility] Serum or plasma calcium randall urement (mass/volume)Ordered By: Tab Dupont on 06-29-2023 Calcium [Mass/Vol] 8.3 mg/dL 8.5-10.1 [facility] Serum or plasma creatinine m easurement (mass/volume)Ordered By: Tab Dupont on 06-29-2023 Creatinine [Mass/Vol] 0.52 mg/dL 0.70-1.30 [facility] Comment on above: The validity of the calculated GFR & GFRAA in patients over 70 years has not been determined. Clinical correlation is essential. Serum or plasma urea nitroge n measurement (mass/volume)Ordered By: Tab Dupont on 06-29-2023 Urea nitrogen [Mass/Vol] 15 mg/dL 7-18 [facility] Thin prep Papanicolaou smear with manual screeningOrdered By: Tab Dupont on 06-29-2023 Thin prep Papanicolaou smear with manual screening 7 5-15 [facility] [facility] Basophil percentageOrdered B y: Tab Dupont on 06-01-2023 Chloride [Moles/Vol] 112 mmol/L 98-107 [facility] Glucose [Mass/Vol] 133 mg/dL 74-106 [facility] Comment on above: Fasting Glucose resu lt greater than or equal to 126 mg/dL suggests DIABETES MELLITUS per A.D.A. criteria. Potassium [Moles/Vol] 3.8 mmol/L 3.5-5.1 [facility] Sodium [Moles/Vol] 141 mmol/L 136-145 [facility] WBC (Bld) [#/Vol] 6.8 10*3/uL 4.4-11.0 [facility] Blood erythrocytes count (nu mber/volume)Ordered By: Tab Dupont on 06-01-2023 RBC (Bld) [#/Vol] 3.96 10*6/uL 4.6-6.2 [facility] Blood hemoglobin measurement (mass/volume)Ordered By: Tab Dupont on 06-01-2023 Hemoglobin (Bld) [Mass/Vol] 12.7 g/dL 13.0-16.5 [facility] Blood platelet mean volumeOr dered By: Tab Dupont on 06-01-2023 Platelet mean volume (Bld) [Entitic vol] 10.1 fL 6.2-12.0 [facility] Determination of erythrocyte mean corpuscular volume (MCV)Ordered By: Tab Dupont on 06-01-2023 MCV (RBC) [Entitic vol] 99.7 fL 80-[address] [facility] Hematocrit Auto (Bld) [Volum e fraction]Ordered By: Tab Dupont on 06-01-2023 Hematocrit (Bld) [Volume fraction] 39.5 % 40-54 [facility] - Chemistry and C hemistry - challengeOrdered By: Tab Dupont on 06-01-2023 CO2 [Moles/Vol] 25.0 mmol/L 21.0-32.0 [facility] Urea nitrogen/Creatinine [Mass ratio] 29.2 mg/mg 10-20 [facility] - Hematology and Cell countsOrdered By: Tab Dupont on 06-01-2023 Erythrocyte distribution width (RBC) [Entitic vol] 54.3 fL 35.1-43.9 [facility] Erythrocyte distribution width (RBC) [Ratio] 14.6 % 11.6-14.6 [facility] MCH (RBC) [Entitic mass] 32.1 pg 27.0-32.0 [facility] MCHC Auto (RBC) [Mass/Vol]Or dered By: Tab Dupont on 06-01-2023 MCHC (RBC) [Mass/Vol] 32.2 g/dL 32-36 [facility] No Panel InformationOrdered By: Tab Dupont on 06-01-2023 Estimated GFR (MDRD) Amer 227 mL/min >60 [facility] Comment on above: GFR Calc Estimated GFR (MDRD) Non-Af Amer 188 mL/min >60 [facility] Comment on above: Non- GFR Calc Platelets bldOrdered By: Regino Dupont on 06-01-2023 Platelets (Bld) [#/Vol] 274 10*3/uL 150-450 [facility] Serum or plasma calcium randall urement (mass/volume)Ordered By: Tab Dupont on 06-01-2023 Calcium [Mass/Vol] 8.5 mg/dL 8.5-10.1 [facility] Serum or plasma creatinine m easurement (mass/volume)Ordered By: Tab Dupont on 06-01-2023 Creatinine [Mass/Vol] 0.48 mg/dL 0.70-1.30 [facility] Comment on above: The validity of the calculated GFR & GFRAA in patients over 70 years has not been determined. Clinical correlation is essential. Serum or plasma urea nitroge n measurement (mass/volume)Ordered By: Tab Dupont on 06-01-2023 Urea nitrogen [Mass/Vol] 14 mg/dL 7-18 [facility] Thin prep Papanicolaou smear with manual screeningOrdered By: Tab Dupont on 06-01-2023 Thin prep Papanicolaou smear with manual screening 4 5-15 [facility] Urinalysis complete panel (U )Ordered By: Darya Nazario on 05-23-2023 Bacteria LM.HPF (Urine sed) [#/Area] Moderate Abnormal Negative /HPF [facility] Bilirubin Ql (U) Negative Negative mg/dL [facility] Clarity (U) Extra Turbid Abnormal Clear [facility] Color (U) Yellow Lt. Yellow [facility] Epithelial cells.squamous LM.HPF (Urine sed) [#/Area] 0-2 [facility] h Glucose Ql (U) Normal Normal (<70) mg/dL [facility] Hemoglobin Ql (U) 0.1 mg/dL Abnormal Negative [facility] ealth Interpretation and review of laboratory results Abnormal [facility] Ketones (U) [Mass/Vol] Negative Negat mary grace mg/dL [facility] Leukocyte clumps LM.HPF (Urine sed) [#/Area] Moderate Abnormal Negative /HPF [facility] Leukocyte esterase Test strip Ql (U) 500 Abnormal Negative Da/uL [facility] Mucus LM.HPF (Urine sed) [#/Area] Few Negative /LPF [facility] Nitrite Ql (U) Positive Abnormal Negative [facility] th pH (U) 8.0 [pH] 5.0 - 8.0 pH [facility] Protein (U) [Mass/Vol] 100 mg/dL Abnormal Negative [facility] RBC LM.HPF (Urine sed) [#/Area] /[HPF] Abnormal [facility] Specific gravity (U) [Rel density] 1.014 1.005 - 1.030 [facility] Triple phosphate crystals LM.HPF (Urine sed) [#/Area] Moderate Abnormal Negative /HPF [facility] Urobilinogen (U) [Mass/Vol] Normal Normal (0-1) mg/dL [facility] WBC LM.HPF (Urine sed) [#/Area] /[HPF] Abnormal [facility] Basophil percentageOrdered B y: Tab Dupont on 05-04-2023 Bilirubin [Mass/Vol] 0.20 mg/dL 0.20-1.00 [facility] Comment on above: For patients on eltr ombopag therapy, use of Dimension Fluker TBIL is not recommended. Chloride [Moles/Vol] 109 mmol/L 98-107 [facility] Glucose [Mass/Vol] 183 mg/dL 74-106 [facility] Comment on above: Fasting Glucose resu lt greater than or equal to 126 mg/dL suggests DIABETES MELLITUS per A.D.A. criteria. Potassium [Moles/Vol] 4.0 mmol/L 3.5-5.1 [facility] Protein [Mass/Vol] 6.0 g/dL 6.4-8.2 [facility] Sodium [Moles/Vol] 139 mmol/L 136-145 [facility] WBC (Bld) [#/Vol] 6.7 10*3/uL 4.4-11.0 [facility] Blood erythrocytes count (nu mber/volume)Ordered By: Tab Dupont on 05-04-2023 RBC (Bld) [#/Vol] 3.31 10*6/uL 4.6-6.2 [facility] Blood hemoglobin measurement (mass/volume)Ordered By: Tab Dupont on 05-04-2023 Hemoglobin (Bld) [Mass/Vol] 10.2 g/dL 13.0-16.5 [facility] Blood platelet mean volumeOr dered By: Tab Dupont on 05-04-2023 Platelet mean volume (Bld) [Entitic vol] 10.2 fL 6.2-12.0 [facility] Determination of erythrocyte mean corpuscular volume (MCV)Ordered By: Tab Dupont on 05-04-2023 MCV (RBC) [Entitic vol] 99.1 fL 80-[address] [facility] Hematocrit Auto (Bld) [Volum e fraction]Ordered By: Tab Dupont on 05-04-2023 Hematocrit (Bld) [Volume fraction] 32.8 % 40-54 [facility] - Chemistry and C hemistry - challengeOrdered By: Tab Dupont on 05-04-2023 ALP [Catalytic activity/Vol] 104 U/L 45-117 [facility] ALT [Catalytic activity/Vol] 17 U/L 16-61 [facility] CO2 [Moles/Vol] 26.0 mmol/L 21.0-32.0 [facility] Globulin (S) [Mass/Vol] 3.8 g/dL 2.2-4.[address] [facility] Urea nitrogen/Creatinine [Mass ratio] 21.9 mg/mg 10-20 [facility] - Hematology and Cell countsOrdered By: aTb Dupont on 05-04-2023 Erythrocyte distribution width (RBC) [Entitic vol] 48.8 fL 35.1-43.9 [facility] Erythrocyte distribution width (RBC) [Ratio] 13.5 % 11.6-14.6 [facility] MCH (RBC) [Entitic mass] 30.8 [facility] 27[facility]0-[facility] [Mass/Vol]Or dered By: Tab Dupont on 05-04-2023 MCHC (RBC) [Mass/Vol] 31.1 g/dL 32-36 [facility] No Panel InformationOrdered By: Tab Dupont on 05-04-2023 Estimated GFR (MDRD) Amer 195 mL/min >60 [facility] Comment on above: GFR Calc Estimated GFR (MDRD) Non-Af Amer 161 mL/min >60 [facility] Comment on above: Non- GFR Calc Platelets bldOrdered By: Pet xenia Dupont on 05-04-2023 Platelets (Bld) [#/Vol] 290 10*3/uL 150-450 [facility] Serum or plasma albumin randall urement (mass/volume)Ordered By: Tab Dupont on 05-04-2023 Albumin [Mass/Vol] 2.2 g/dL 3.2-5.0 [facility] Serum or plasma albumin/glob ulin mass ratioOrdered By: Tab Dupont on 05-04-2023 Albumin/Globulin [Mass ratio] 0.6 {ratio} 0.9-2.4 [facility] Serum or plasma calcium randall urement (mass/volume)Ordered By: Tab Dupont on 05-04-2023 Calcium [Mass/Vol] 8.4 mg/dL 8.5-10.1 [facility] Serum or plasma creatinine m easurement (mass/volume)Ordered By: Tab Dupont on 05-04-2023 Creatinine [Mass/Vol] 0.55 mg/dL 0.70-1.30 [facility] Comment on above: The validity of the calculated GFR & GFRAA in patients over 70 years has not been determined. Clinical correlation is essential. Serum or plasma urea nitroge n measurement (mass/volume)Ordered By: Tab Dupont on 05-04-2023 Urea nitrogen [Mass/Vol] 12 mg/dL 7-18 [facility] Thin prep Papanicolaou smear with manual screeningOrdered By: Tab Dupont on 05-04-2023 Thin prep Papanicolaou smear with manual screening 16 U/L 15-37 [facility] Thin prep Papanicolaou smear with manual screening 4 5-15 [facility] Basophil percentageOrdered B y: Tab Dupont on 03-25-2023 Bilirubin [Mass/Vol] 0.30 mg/dL 0.20-1.00 [facility] Comment on above: For patients on eltr ombopag therapy, use of Dimension Fluker TBIL is not recommended. Chloride [Moles/Vol] 107 mmol/L 98-107 [facility] Cholesterol [Mass/Vol] 163 mg/dL <200 [facility] Comment on above: <200 mg/dL Desirable 200-240 mg/dL Borderline >240 mg/dL High Risk Glucose [Mass/Vol] 119 mg/dL 74-106 [facility] Comment on above: Fasting Glucose resu lt from 100 to 125 mg/dL suggests IMPAIRED HOMEOSTASIS per A.D.A. criteria. Potassium [Moles/Vol] 3.6 mmol/L 3.5-5.1 [facility] Protein [Mass/Vol] 6.7 g/dL 6.4-8.2 [facility] Sodium [Moles/Vol] 137 mmol/L 136-145 [facility] Triglyceride [Mass/Vol] 139 mg/dL <199 [facility] Comment on above: The drugs N-Acetylcy steine and Metamizole may falsely depress this assay.Serum Triglycerides Reference Interval Normal <150 mg/dL Borderline high 150 - 199 mg/dL High 200 - 499 mg/dL Very High > or = 500 mg/dL WBC (Bld) [#/Vol] 6.8 10*3/uL 4.4-11.0 [facility] Blood erythrocytes count (nu mber/volume)Ordered By: Tab Dupont on 03-25-2023 RBC (Bld) [#/Vol] 3.71 10*6/uL 4.6-6.2 [facility] Blood hemoglobin measurement (mass/volume)Ordered By: Tab Dupont on 03-25-2023 Hemoglobin (Bld) [Mass/Vol] 11.6 g/dL 13.0-16.5 [facility] Blood platelet mean volumeOr dered By: Tab Dupont on 03-25-2023 Platelet mean volume (Bld) [Entitic vol] 9.9 fL 6.2-12.0 [facility] Determination of erythrocyte mean corpuscular volume (MCV)Ordered By: Tab Dupont on 03-25-2023 MCV (RBC) [Entitic vol] 99.5 fL 80-[address] [facility] Hematocrit Auto (Bld) [Volum e fraction]Ordered By: Tab Dupont on 03-25-2023 Hematocrit (Bld) [Volume fraction] 36.9 % 40-54 [facility] - Chemistry and C hemistry - challengeOrdered By: Tab Dupont on 03-25-2023 ALP [Catalytic activity/Vol] 121 U/L 45-117 [facility] ALT [Catalytic activity/Vol] 18 U/L 16-61 [facility] CO2 [Moles/Vol] 23.0 mmol/L 21.0-32.0 [facility] Globulin (S) [Mass/Vol] 4.3 g/dL 2.2-4.[address] [facility] Urea nitrogen/Creatinine [Mass ratio] 22.6 mg/mg 10-20 [facility] - Hematology and Cell countsOrdered By: Tab Dupont on 03-25-2023 Erythrocyte distribution width (RBC) [Entitic vol] 50.3 fL 35.1-43.9 [facility] Erythrocyte distribution width (RBC) [Ratio] 13.5 % 11.6-14.6 [facility] MCH (RBC) [Entitic mass] 31.3 pg 27.0-32.0 [facility] MCHC Auto (RBC) [Mass/Vol]Or dered By: Tab Dupont on 03-25-2023 MCHC (RBC) [Mass/Vol] 31.4 g/dL 32-36 [facility] No Panel InformationOrdered By: Tab Dupont on 03-25-2023 Estimated GFR (MDRD) Amer 250 mL/min >60 [facility] Comment on above: GFR Calc Estimated GFR (MDRD) Non-Af Amer 207 mL/min >60 [facility] Comment on above: Non- GFR Calc Prostate Specific Antigen Screen 0.59 ng/mL 0.00-4.00 [facility] Comment on above: This test was perfor med using the TPSA assay method for theDimension chemistry system. Values obtained with differentassay methods cannot be used interchangably.When changing PSA assays in the course of monitoring apatient, additional sequential testing should be carriedout to confirm baseline values. Thyroid Stimulating Hormone (TSH) 3.33 uIU/mL 0.358-3.74 [facility] Platelets bldOrdered By: Regino Dupont on 03-25-2023 Platelets (Bld) [#/Vol] 301 10*3/uL 150-450 [facility] Serum or plasma albumin randall urement (mass/volume)Ordered By: Tab Dupont on 03-25-2023 Albumin [Mass/Vol] 2.4 g/dL 3.2-5.0 [facility] Serum or plasma albumin/glob ulin mass ratioOrdered By: Tab Dupont on 03-25-2023 Albumin/Globulin [Mass ratio] 0.6 {ratio} 0.9-2.4 [facility] Serum or plasma calcium randall urement (mass/volume)Ordered By: Tab Dupont on 03-25-2023 Calcium [Mass/Vol] 8.7 mg/dL 8.5-10.1 [facility] Serum or plasma cholesterol in HDL measurement (mass/volume)Ordered By: Tab Dupont on 03-25-2023 Cholesterol in HDL [Mass/Vol] 27 mg/dL >40 [facility] Comment on above: The drugs N-Acetylcy steine and Metamizole may falsely depress this assay. Reference Range HDL <40 mg/dL Low HDL Cholesterol HDL >or= 60 mg/dL High HDL Cholesterol Serum or plasma cholesterol in VLDL measurement (mass/volume)Ordered By: Tba Dupont on 03-25-2023 Cholesterol in VLDL [Mass/Vol] 28 mg/dL 5-40 [facility] Serum or plasma creatinine m easurement (mass/volume)Ordered By: Tab Dupont on 03-25-2023 Creatinine [Mass/Vol] 0.44 mg/dL 0.70-1.30 [facility] Comment on above: The validity of the calculated GFR & GFRAA in patients over 70 years has not been determined. Clinical correlation is essential. Serum or plasma low density lipoprotein (LDL) cholesterol measurement (mass/volume)Ordered By: Tab Dupont on 03-25-2023 Cholesterol in LDL [Mass/Vol] 108 mg/dL 0-130 [facility] Serum or plasma urea nitroge n measurement (mass/volume)Ordered By: Tab Dupont on 03-25-2023 Urea nitrogen [Mass/Vol] 10 mg/dL 7-18 [facility] Thin prep Papanicolaou smear with manual screeningOrdered By: Tab Dupont on 03-25-2023 Thin prep Papanicolaou smear with manual screening 13 U/L 15-37 [facility] Thin prep Papanicolaou smear with manual screening 7 5-15 [facility] CNPNon 12-02-2021 CNPN Telephone (HCSIND) ANMOL REYNOLDS ([id number]) 1960 M Date Time Provider Department 12/02/21 VITALY SMALLWOOD HCSIND During your visit today, we recorded the following information about you: Vitaly Smallwood LPN 12/02/2021 9:58 AM Signed Called patient to complete confirmation call and he did not want to talk about potential DC at this time, said he has a daughter who is a nurse, said to call back in a week when he has more information. Allergies As of Date: 12/02/2021 (No Known Allergies) Date Reviewed: 11/30/2021 Reviewed by: Sulma Hurst, LIBRADO - Fully Assessed Reason for Visit: Home Care [[id number]] Cmt: Confirmation Call Prescriptions as of 12/02/2021 - dapagliflozin-metFORM IN (XIGDUO XR) 10-1,000 mg XR tab Take 1 tablet by mouth daily with breakfast. - linaGLIPtin (TRADJENTA) 5 mg tab Take 5 mg by mouth once daily. - meloxicam (MOBIC) 7.5 mg tablet Take 7.5 mg by mouth once daily. - mirtazapine (REMERON) 15 mg tablet Take 15 mg by mouth daily at bedtime. - insulin glargine (LANTUS SOLOSTAR, BASAGLAR KWIKPEN) 100 unit/mL (3 mL) Inject 10 Units subcutaneously daily at bedtime. - insulin glargine (LANTUS SOLOSTAR, BASAGLAR KWIKPEN) 100 unit/mL (3 mL) Inject 6 Units subcutaneously every morning. - insulin lispro 100 unit/mL injection Inject 4 Units subcutaneously w MEALS. - oxyCODONE-acetaminoph en (PERCOCET) 5-325 mg tablet Take 1 tablet by mouth three times daily. - atorvastatin (LIPITOR) 40 mg tablet daily at bedtime. - DULoxetine (CYMBALTA) 60 mg capsule Take 60 mg by mouth once daily. Facility-Administered Medications as of 12/02/2021 - insulin glargine 32 Units pen (long acting) (LANTUS SOLOSTAR, BASAGLAR KWIKPEN) - furosemide 20 mg tab(s) (LASIX) - potassium chloride ER 40 mEq tab(s) (K-DUR, KLOR-CON) - oxyCODONE IR 10 mg tab(s) (ROXICODONE) - morphine 4 mg injection - keTORolac 30 mg injection (TORADOL) - insulin lispro 8 Units pen (rapid acting) (HumaLOG KWIKPEN) - gabapentin 200 mg cap(s) (NEURONTIN) - melatonin 9 mg tab(s) - acetaminophen 1,000 mg tab(s) (TYLENOL) - vancomycin 1.25 g in D5W 250 mL (VANCOCIN) - rifAMPin 300 mg cap(s) (RIFADIN) - mirtazapine 15 mg (REMERON) - SITagliptin 100 mg tab(s) (JANUVIA) - magnesium oxide 400 mg tab(s) (MAG-OX) - bisacodyl 10 mg suppository (DULCOLAX) - iv contrast (radiology procedure) - insulin lispro pen (rapid acting) (HumaLOG KWIKPEN) - insulin lispro pen (rapid acting) (HumaLOG KWIKPEN) - vancomycin dosing and monitoring per pharmacy - aluminum-magnesium hydroxide-simethicone 200-200-20 mg/5 mL 30 mL (MAALOX,MYLANTA,MAG-A L PLUS) - benzocaine-menthol 1 Lozenge (CEPACOL) - diphenhydrAMINE 25 mg (BENADRYL) - guaiFENesin-dextromet horphan 100-10 mg/5 mL 10 mL oral liquid (ROBITUSSIN DM) - Lip Protectant with Sunscreen SPF 15 1 application Stick (Blistex) - sodium chloride 0.65 % 2 Cordova (AYR, OCEAN) - saliva substitute combo no.9 15 mL (BIOTENE mouthwash) - polyvinyl alcohol-povidone 1.4-0.6 % 1 Drop (REFRESH) - nitroglycerin sublingual 0.4 mg tab(s) (NITROQUICK) - baclofen 10 mg tab(s) (LIORESAL) - ondansetron (PF) 4 mg injection (ZOFRAN) - docusate sodium 100 mg cap(s) (COLACE) - tamsulosin 0.4 mg cap(s) (FLOMAX) - NaCl 0.9% iv flush bag - sodium chloride 0.9 % (flush) 3-5 mL (BD POSIFLUSH) - atorvastatin 40 mg tab(s) (LIPITOR) - dextrose 40 % 15 g - glucagon 1 mg injection - dextrose 50% in water 25 mL syringe Problem List As Of Date 12/02/2021 Noted Resolved NO SHOW [[id number]] 08/31/2013 05/29/2020 Perineal abscess [L02.215] 06/13/2019 05/29/2020 Nicotine use disorder, F17.2 [F17.200] 06/14/2019 Pilonidal cyst without abscess [L05.91] 05/29/2020 Pilonidal cyst with abscess [L05.01] 12/31/2020 Perirectal abscess [K61.1] 01/16/2021 08/21/2021 Type 2 diabetes mellitus with hyperglycemia, wi*01/18/2021 Abnormal weight loss [R63.4] 08/21/2021 Elevated hemoglobin A1c [R73.09] 08/21/2021 Elevated CA 19-9 level [R97.8] 08/21/2021 Elevated carcinoembryonic antigen (CEA) [R97.0] 08/21/2021 Weight loss [R63.4] 09/03/2021 Severe protein-calorie malnutrition (HCC) [E43] 09/04/2021 Ureteral stone [N20.1] 11/25/2021 UTI (urinary tract infection) [N39.0] 11/26/2021 Chronic low back pain [M54.50, G89.29] 11/26/2021 Chronic pain of right ankle [M25.571, G89.29] 11/26/2021 Pyelonephritis [N12] 11/27/2021 MRSA bacteremia [R78.81, B95.62] 11/27/2021 Encounter Status:Closed by VITALY SMALLWOOD on 12/02/21 [facility] Telephone (HCSIND) ANMOL REYNOLDS ([id number]) 1960 M Date Time Provider Department 12/02/21 VITALY SMALLWOOD HCSIND During your visit today, we recorded the following information about you: Vitaly Smallwood LPN 12/02/2021 9:05 AM Signed Ambrosio Monroy, DO Please advise if you are agreeable to signing and following for [facility] services? Our Clinicians will be sending the Plan of Care to you for review and approval. They will reach out for any appropriate orders required to provide home care services for the patient. We are not able to initiate HHC services without a following provider. Thank you and we would be happy to answer any questions. Vitaly Smallwood LPN 12/02/2021 9:04 AM Vitaly Smallwood LPN 12/03/2021 11:48 AM Signed Call made to MD office, Per Dr. Eliana Packer will follow. Vitaly Smallwood LPN Allergies As of Date: 12/02/2021 (No Known Allergies) Date Reviewed: 11/30/2021 Reviewed by: Sulma Hurst RN - Fully Assessed Reason for Visit: Home Care [4073] Cmt: Follow for Home Care Prescriptions as of 12/03/2021 - dapagliflozin-metFORM IN (XIGDUO XR) 10-1,000 mg XR tab Take 1 tablet by mouth daily with breakfast. - linaGLIPtin (TRADJENTA) 5 mg tab Take 5 mg by mouth once daily. - meloxicam (MOBIC) 7.5 mg tablet Take 7.5 mg by mouth once daily. - mirtazapine (REMERON) 15 mg tablet Take 15 mg by mouth daily at bedtime. - insulin glargine (LANTUS SOLOSTAR, BASAGLAR KWIKPEN) 100 unit/mL (3 mL) Inject 10 Units subcutaneously daily at bedtime. - insulin glargine (LANTUS SOLOSTAR, BASAGLAR KWIKPEN) 100 unit/mL (3 mL) Inject 6 Units subcutaneously every morning. - insulin lispro 100 unit/mL injection Inject 4 Units subcutaneously w MEALS. - oxyCODONE-acetaminoph en (PERCOCET) 5-325 mg tablet Take 1 tablet by mouth three times daily. - atorvastatin (LIPITOR) 40 mg tablet daily at bedtime. - DULoxetine (CYMBALTA) 60 mg capsule Take 60 mg by mouth once daily. Facility-Administered Medications as of 12/03/2021 - insulin glargine 36 Units pen (long acting) (LANTUS SOLOSTAR, BASAGLAR KWIKPEN) - insulin lispro 10 Units pen (rapid acting) (HumaLOG KWIKPEN) - furosemide 20 mg tab(s) (LASIX) - potassium chloride ER 40 mEq tab(s) (K-DUR, KLOR-CON) - oxyCODONE IR 10 mg tab(s) (ROXICODONE) - morphine 4 mg injection - keTORolac 30 mg injection (TORADOL) - gabapentin 200 mg cap(s) (NEURONTIN) - melatonin 9 mg tab(s) - acetaminophen 1,000 mg tab(s) (TYLENOL) - vancomycin 1.25 g in D5W 250 mL (VANCOCIN) - rifAMPin 300 mg cap(s) (RIFADIN) - mirtazapine 15 mg (REMERON) - SITagliptin 100 mg tab(s) (JANUVIA) - magnesium oxide 400 mg tab(s) (MAG-OX) - bisacodyl 10 mg suppository (DULCOLAX) - iv contrast (radiology procedure) - insulin lispro pen (rapid acting) (HumaLOG KWIKPEN) - insulin lispro pen (rapid acting) (HumaLOG KWIKPEN) - vancomycin dosing and monitoring per pharmacy - aluminum-magnesium hydroxide-simethicone 200-200-20 mg/5 mL 30 mL (MAALOX,MYLANTA,MAG-A L PLUS) - benzocaine-menthol 1 Lozenge (CEPACOL) - diphenhydrAMINE 25 mg (BENADRYL) - guaiFENesin-dextromet horphan 100-10 mg/5 mL 10 mL oral liquid (ROBITUSSIN DM) - Lip Protectant with Sunscreen SPF 15 1 application Stick (Blistex) - sodium chloride 0.65 % 2 Cordova (AYR, OCEAN) - saliva substitute combo no.9 15 mL (BIOTENE mouthwash) - polyvinyl alcohol-povidone 1.4-0.6 % 1 Drop (REFRESH) - nitroglycerin sublingual 0.4 mg tab(s) (NITROQUICK) - baclofen 10 mg tab(s) (LIORESAL) - ondansetron (PF) 4 mg injection (ZOFRAN) - docusate sodium 100 mg cap(s) (COLACE) - tamsulosin 0.4 mg cap(s) (FLOMAX) - NaCl 0.9% iv flush bag - sodium chloride 0.9 % (flush) 3-5 mL (BD POSIFLUSH) - atorvastatin 40 mg tab(s) (LIPITOR) - dextrose 40 % 15 g - glucagon 1 mg injection - dextrose 50% in water 25 mL syringe Problem List As Of Date 12/02/2021 Noted Resolved NO SHOW [[id number]] 08/31/2013 05/29/2020 Perineal abscess [L02.215] 06/13/2019 05/29/2020 Nicotine use disorder, F17.2 [F17.200] 06/14/2019 Pilonidal cyst without abscess [L05.91] 05/29/2020 Pilonidal cyst with abscess [L05.01] 12/31/2020 Perirectal abscess [K61.1] 01/16/2021 08/21/2021 Type 2 diabetes mellitus with hyperglycemia, wi*01/18/2021 Abnormal weight loss [R63.4] 08/21/2021 Elevated hemoglobin A1c [R73.09] 08/21/2021 Elevated CA 19-9 level [R97.8] 08/21/2021 Elevated carcinoembryonic antigen (CEA) [R97.0] 08/21/2021 Weight loss [R63.4] 09/03/2021 Severe protein-calorie malnutrition (HCC) [E43] 09/04/2021 Ureteral stone [N20.1] 11/25/2021 UTI (urinary tract infection) [N39.0] 11/26/2021 Chronic low back pain [M54.50, G89.29] 11/26/2021 Chronic pain of right ankle [M25.571, G89.29] 11/26/2021 Pyelonephritis [N12] 11/27/2021 MRSA bacteremia [R78.81, B95.62] 11/27/2021 Encounter Status:Closed by WALLACE SMALLWOOD (more content not included)... [facility] Telephone (HCSIND) ANMOL REYNOLDS ([id number]) 1960 M Date Time Provider Department 12/02/21 VITALY SMALLWOOD During your visit today, we recorded the following information about you: Vitaly Smallwood LPN 12/02/2021 9:06 AM Signed Please advise if you are agreeable to signing and following for [facility] services? Our Clinicians will be sending the Plan of Care to you for review and approval. They will reach out for any appropriate orders required to provide home care services for the patient. We are not able to initiate HHC services without a following provider. Thank you and we would be happy to answer any questions. Vitaly Smallwood LPN 12/02/2021 9:06 AM Allergies As of Date: 12/02/2021 (No Known Allergies) Date Reviewed: 11/30/2021 Reviewed by: Sulma Hurst RN - Fully Assessed Reason for Visit: Home Care [4073] Cmt: Follow for Home Care Prescriptions as of 12/02/2021 - dapagliflozin-metFORM IN (XIGDUO XR) 10-1,000 mg XR tab Take 1 tablet by mouth daily with breakfast. - linaGLIPtin (TRADJENTA) 5 mg tab Take 5 mg by mouth once daily. - meloxicam (MOBIC) 7.5 mg tablet Take 7.5 mg by mouth once daily. - mirtazapine (REMERON) 15 mg tablet Take 15 mg by mouth daily at bedtime. - insulin glargine (LANTUS SOLOSTAR, BASAGLAR KWIKPEN) 100 unit/mL (3 mL) Inject 10 Units subcutaneously daily at bedtime. - insulin glargine (LANTUS SOLOSTAR, BASAGLAR KWIKPEN) 100 unit/mL (3 mL) Inject 6 Units subcutaneously every morning. - insulin lispro 100 unit/mL injection Inject 4 Units subcutaneously w MEALS. - oxyCODONE-acetaminoph en (PERCOCET) 5-325 mg tablet Take 1 tablet by mouth three times daily. - atorvastatin (LIPITOR) 40 mg tablet daily at bedtime. - DULoxetine (CYMBALTA) 60 mg capsule Take 60 mg by mouth once daily. Facility-Administered Medications as of 12/02/2021 - insulin glargine 32 Units pen (long acting) (LANTUS SOLOSTAR, BASAGLAR KWIKPEN) - furosemide 20 mg tab(s) (LASIX) - potassium chloride ER 40 mEq tab(s) (K-DUR, KLOR-CON) - oxyCODONE IR 10 mg tab(s) (ROXICODONE) - morphine 4 mg injection - keTORolac 30 mg injection (TORADOL) - insulin lispro 8 Units pen (rapid acting) (HumaLOG KWIKPEN) - gabapentin 200 mg cap(s) (NEURONTIN) - melatonin 9 mg tab(s) - acetaminophen 1,000 mg tab(s) (TYLENOL) - vancomycin 1.25 g in D5W 250 mL (VANCOCIN) - rifAMPin 300 mg cap(s) (RIFADIN) - mirtazapine 15 mg (REMERON) - SITagliptin 100 mg tab(s) (JANUVIA) - magnesium oxide 400 mg tab(s) (MAG-OX) - bisacodyl 10 mg suppository (DULCOLAX) - iv contrast (radiology procedure) - insulin lispro pen (rapid acting) (HumaLOG KWIKPEN) - insulin lispro pen (rapid acting) (HumaLOG KWIKPEN) - vancomycin dosing and monitoring per pharmacy - aluminum-magnesium hydroxide-simethicone 200-200-20 mg/5 mL 30 mL (MAALOX,MYLANTA,MAG-A L PLUS) - benzocaine-menthol 1 Lozenge (CEPACOL) - diphenhydrAMINE 25 mg (BENADRYL) - guaiFENesin-dextromet horphan 100-10 mg/5 mL 10 mL oral liquid (ROBITUSSIN DM) - Lip Protectant with Sunscreen SPF 15 1 application Stick (Blistex) - sodium chloride 0.65 % 2 [place] (AYR, OCEAN) - saliva substitute combo no.9 15 mL (BIOTENE mouthwash) - polyvinyl alcohol-povidone 1.4-0.6 % 1 Drop (REFRESH) - nitroglycerin sublingual 0.4 mg tab(s) (NITROQUICK) - baclofen 10 mg tab(s) (LIORESAL) - ondansetron (PF) 4 mg injection (ZOFRAN) - docusate sodium 100 mg cap(s) (COLACE) - tamsulosin 0.4 mg cap(s) (FLOMAX) - NaCl 0.9% iv flush bag - sodium chloride 0.9 % (flush) 3-5 mL (BD POSIFLUSH) - atorvastatin 40 mg tab(s) (LIPITOR) - dextrose 40 % 15 g - glucagon 1 mg injection - dextrose 50% in water 25 mL syringe Problem List As Of Date 12/02/2021 Noted Resolved NO SHOW [583311] 08/31/2013 05/29/2020 Perineal abscess [L02.215] 06/13/2019 05/29/2020 Nicotine use disorder, F17.2 [F17.200] 06/14/2019 Pilonidal cyst without abscess [L05.91] 05/29/2020 Pilonidal cyst with abscess [L05.01] 12/31/2020 Perirectal abscess [K61.1] 01/16/2021 08/21/2021 Type 2 diabetes mellitus with hyperglycemia, wi*01/18/2021 Abnormal weight loss [R63.4] 08/21/2021 Elevated hemoglobin A1c [R73.09] 08/21/2021 Elevated CA 19-9 level [R97.8] 08/21/2021 Elevated carcinoembryonic antigen (CEA) [R97.0] 08/21/2021 Weight loss [R63.4] 09/03/2021 Severe protein-calorie malnutrition (HCC) [E43] 09/04/2021 Ureteral stone [N20.1] 11/25/2021 UTI (urinary tract infection) [N39.0] 11/26/2021 Chronic low back pain [M54.50, G89.29] 11/26/2021 Chronic pain of right ankle [M25.571, G89.29] 11/26/2021 Pyelonephritis [N12] 11/27/2021 MRSA bacteremia [R78.81, B95.62] 11/27/2021 Encounter Status:Closed by VITALY SMALLWOOD on 12/02/21 Normal [facility] ANTISMOOTH MUSCLE ABon 10-15 ANTISMOOTH MUSCLE AB Negative Normal NEGATIVE [facility] Comment on above: Performed By: #### A SMAB #### [facility] [address] [place] [address] SEEMA-WITH REFLEX TO ENAon SEEMA WITH REFLEX TO AYDEE Negative Normal NEGATIVE [facility] Comment on above: Result Comment: The Antinuclear Antibody (SEEMA) test was performed using indirect immunofluorescence assay with HEp-2 cells slide. Performed By: #### A NA2 #### [facility] [address] [place] [address] COMPREHENSIVE PANELon 2021 Glucose [Mass/Vol] 916 mg/dL Critically high 74 - 99 [facility] Comment on above: Order Comment: READ BACK CRIT GLU TO [place], 10/12/2021 00:08 Result Comment: READ BACK CRIT GLU TO [place], 10/12/2021 00:08 Performed By: #### C MP #### [facility] [address] [place] [address] Albumin [Mass/Vol] 3.9 g/dL Normal 3.4 - 5.0 [facility] Comment on above: Order Comment: READ BACK CRIT GLU TO [place], 10/12/2021 00:08 Performed By: #### C MP #### [facility] [address] [place] [address] ALP [Catalytic activity/Vol] 235 U/L High 33 - 136 [facility] Comment on above: Order Comment: READ BACK CRIT GLU TO [place], 10/12/2021 00:08 Performed By: #### C MP #### [facility] [address] [place] [address] ALT [Catalytic activity/Vol] 192 U/L High 10 - 52 [facility] Comment on above: Order Comment: READ BACK CRIT GLU TO [place], 10/12/2021 00:08 Result Comment: Blanca ents treated with Sulfasalazine may generate falsely decreased results for ALT. Performed By: #### C MP #### [facility] [address] [place] [address] Anion gap [Moles/Vol] 16 mmol/L Normal 10 - 20 [facility] Comment on above: Order Comment: READ BACK CRIT GLU TO [place], 10/12/2021 00:08 Performed By: #### C MP #### [facility] [address] [place] [address] AST [Catalytic activity/Vol] 141 U/L High 9 - 39 [facility] Comment on above: Order Comment: READ BACK CRIT GLU TO [place], 10/12/2021 00:08 Performed By: #### C MP #### [facility] [address] [place] [address] Bilirubin [Mass/Vol] 0.7 mg/dL Normal 0.0 - 1.2 [facility] Comment on above: Order Comment: READ BACK CRIT GLU TO [place], 10/12/2021 00:08 Performed By: #### C MP #### [facility] [address] [place] [address] Calcium [Mass/Vol] 9.0 mg/dL Normal 8.6 - 10.6 [facility] Comment on above: Order Comment: READ BACK CRIT GLU TO [place], 10/12/2021 00:08 Performed By: #### C MP #### [facility] [address] [place] [address] Chloride [Moles/Vol] 91 mmol/L Low 98 - 107 [facility] Comment on above: Order Comment: READ BACK CRIT GLU TO [place], 10/12/2021 00:08 Performed By: #### C MP #### [facility] [address] [place] [address] Creatinine [Mass/Vol] 0.62 mg/dL Normal 0.50 - 1.30 [facility] Comment on above: Order Comment: READ BACK CRIT GLU TO [place], 10/12/2021 00:08 Performed By: #### C MP #### [facility] [address] [place] [address] eGFR MALE >90 Normal >90 [facility] Comment on above: Order Comment: READ BACK CRIT GLU TO [place], 10/12/2021 00:08 Result Comment: CALC ULATIONS OF ESTIMATED GFR ARE PERFORMED USING THE 2020 CKD-EPI STUDY REFIT EQUATION WITHOUT THE RACE VARIABLE FOR THE IDMS-TRACEABLE CREATININE METHODS. https://jasn.asnjournals.org/content/early//ASN.672 6711886 Performed By: #### C MP #### [facility] [address] [place] [address] HCO3 (Bld) [Moles/Vol] 25 mmol/L Normal 21 - 32 [facility] Comment on above: Order Comment: READ BACK CRIT GLU TO [place], 10/12/2021 00:08 Performed By: #### C MP #### [facility] [address] [place] [address] Potassium [Moles/Vol] 4.5 mmol/L Normal 3.5 - 5.3 [facility] Comment on above: Order Comment: READ BACK CRIT GLU TO [place], 10/12/2021 00:08 Performed By: #### C MP #### [facility] [address] [place] [address] Protein [Mass/Vol] 5.9 g/dL Low 6.4 - 8.2 [facility] Comment on above: Order Comment: READ BACK CRIT GLU TO [place], 10/12/2021 00:08 Performed By: #### C MP #### [facility] [address] [place] [address] Sodium [Moles/Vol] 127 mmol/L Low 136 - 145 [facility] Comment on above: Order Comment: READ BACK CRIT GLU TO [place], 10/12/2021 00:08 Performed By: #### C MP #### [facility] [address] [place] [address] Urea nitrogen [Mass/Vol] 14 mg/dL Normal 6 - 23 [facility] Comment on above: Order Comment: READ BACK CRIT GLU TO [place], 10/12/2021 00:08 Performed By: #### C MP #### [facility] [address] [place] [address] FERRITINon 10-12-2021 FERRITIN 1311 ug/L High 20 - 300 [facility] Comment on above: Performed By: #### F ERRI #### [facility] [address] [place] [address] IGG SUBCLASS 4on 10-12-2021 IGG SUBCLASS 4 25 mg/dL Normal 3 - 200 [facility] Comment on above: Performed By: #### I GGG4 #### [facility] [address] [place] [address] IRON + TIBCon 01-08-2022 % SATURATION 70 % High 25 - 45 [facility] Comment on above: Performed By: #### I RONT #### [facility] [address] [place] [address] Iron [Mass/Vol] 180 ug/dL High 35 - 150 [facility] Comment on above: Performed By: #### I RONT #### [facility] [address] [place] [address] TIBC 257 ug/dL Normal 240 - 445 [facility] Comment on above: Performed By: #### I RONT #### [facility] [address] [place] [address] CNPNon 09-10-2021 CNPN Telephone (PODCCP) ANMOL REYNOLDS ([id number]) 1960 Date Time Provider Department 09/10/21 NEHEMIAS MCMANUS PODCCP During your visit today, we recorded the following information about you: Allergies As of Date: 09/10/2021 (No Known Allergies) Date Reviewed: 09/06/2021 Reviewed by: Mary Ellen Brown, LIBRADO - Fully Assessed Reason for Visit: Follow Up [171] Cmt: Zoey interaction - F/U - attempt made. No answer Prescriptions as of 09/10/2021 - insulin glargine (LANTUS SOLOSTAR, BASAGLAR KWIKPEN) 100 unit/mL (3 mL) Inject 10 Units subcutaneously daily at bedtime. - insulin glargine (LANTUS SOLOSTAR, BASAGLAR KWIKPEN) 100 unit/mL (3 mL) Inject 6 Units subcutaneously every morning. - insulin lispro 100 unit/mL injection Inject 4 Units subcutaneously w MEALS. - potassium chloride ER (K-DUR, KLOR-CON) 20 mEq tablet Take 1 tablet by mouth once daily. - Insulin Syringe-Needle U-100 (SAFETYGLIDE INSULIN) 0.3 mL 29 gauge x 1/2" syrg Use with humalog 3times daily with meals - gabapentin (NEURONTIN) 300 mg capsule Take 300 mg by mouth three times daily. - oxyCODONE-acetaminoph en (PERCOCET) 5-325 mg tablet Take 1 tablet by mouth three times daily. - ibuprofen (MOTRIN) 600 mg tablet Take 1 tablet by mouth every 6 hours as needed for Pain. - atorvastatin (LIPITOR) 40 mg tablet - DULoxetine (CYMBALTA) 60 mg capsule Take 60 mg by mouth once daily. Problem List As Of Date 09/10/2021 Noted Resolved NO SHOW [[id number]] 08/31/2013 05/29/2020 Perineal abscess [L02.215] 06/13/2019 05/29/2020 Nicotine use disorder, F17.2 [F17.200] 06/14/2019 Pilonidal cyst without abscess [L05.91] 05/29/2020 Pilonidal cyst with abscess [L05.01] 12/31/2020 Perirectal abscess [K61.1] 01/16/2021 08/21/2021 Diabetes (HCC) [E11.9] 01/18/2021 Abnormal weight loss [R63.4] 08/21/2021 Elevated hemoglobin A1c [R73.09] 08/21/2021 Elevated CA 19-9 level [R97.8] 08/21/2021 Elevated carcinoembryonic antigen (CEA) [R97.0] 08/21/2021 Weight loss [R63.4] 09/03/2021 Severe protein-calorie malnutrition (HCC) [E43] 09/04/2021 Encounter Status:Closed by NEHEMIAS MCMANUS on 09/10/21 [facility] 08-14-2021 SHARIFAN Telephone (GENKeelvarE) ANMOL REYNOLDS ([id number]) 1960 Date Time Provider Department 08/14/21 PENNY CAMERON During your visit today, we recorded the following information about you: Brynn Arreola 08/14/2021 10:35 AM Signed Patient calling to let Dr. Cameron know he is having a colonoscopy done in September by Dr. uRssell Allergies As of Date: 08/14/2021 (No Known Allergies) Date Reviewed: 08/08/2021 Reviewed by: Penny Cameron MD - Fully Assessed Reason for Visit: Patient Update [1234] Prescriptions as of 08/14/2021 - gabapentin (NEURONTIN) 300 mg capsule Take 300 mg by mouth three times daily. - naproxen sodium (ALEVE) 220 mg cap Take 1 capsule by mouth as needed. - RYBELSUS 7 mg tablet Take 7 mg by mouth once daily. - oxyCODONE-acetaminoph en (PERCOCET) 5-325 mg tablet Take 1 tablet by mouth three times daily. - JANUVIA 100 mg tablet Take 100 mg by mouth once daily. - ibuprofen (MOTRIN) 600 mg tablet Take 1 tablet by mouth every 6 hours as needed for Pain. - atorvastatin (LIPITOR) 40 mg tablet - XIGDUO XR 10-1,000 mg XR tab Take 1 tablet by mouth daily with breakfast. - TRADJENTA 5 mg tab Take 5 mg by mouth once daily. - meloxicam (MOBIC) 7.5 mg tablet Take 7.5 mg by mouth once daily. - DULoxetine (CYMBALTA) 60 mg capsule Take 60 mg by mouth once daily. Problem List As Of Date 08/14/2021 Noted Resolved NO SHOW [[id number]] 08/31/2013 05/29/2020 Perineal abscess [L02.215] 06/13/2019 05/29/2020 Nicotine use disorder, F17.2 [F17.200] 06/14/2019 Pilonidal cyst without abscess [L05.91] 05/29/2020 Pilonidal cyst with abscess [L05.01] 12/31/2020 Perirectal abscess [K61.1] 01/16/2021 Diabetes (HCC) [E11.9] 01/18/2021 Encounter Status:Closed by BRYNN ARREOLA on 11/10/21 [facility] 08-09-2021 CNPN Telephone (GENDENIS) GIVEN,ANMOL ([id number]) 1960 M Date Time Provider Department 08/09/21 PENNY CAMERON During your visit today, we recorded the following information about you: Byron Espinal RN 08/09/2021 2:56 PM Signed Records received from [facility] Records labeled and [facility] Allergies As of Date: 08/09/2021 (No Known Allergies) Date Reviewed: 08/08/2021 Reviewed by: Penny Cameron MD - Fully Assessed Reason for Visit: Received Outside Medical Records [4554] Prescriptions as of 08/23/2021 - gabapentin (NEURONTIN) 300 mg capsule Take 300 mg by mouth three times daily. - naproxen sodium (ALEVE) 220 mg cap Take 1 capsule by mouth as needed. - RYBELSUS 7 mg tablet Take 7 mg by mouth once daily. - oxyCODONE-acetaminoph en (PERCOCET) 5-325 mg tablet Take 1 tablet by mouth three times daily. - JANUVIA 100 mg tablet Take 100 mg by mouth once daily. - ibuprofen (MOTRIN) 600 mg tablet Take 1 tablet by mouth every 6 hours as needed for Pain. - atorvastatin (LIPITOR) 40 mg tablet - XIGDUO XR 10-1,000 mg XR tab Take 1 tablet by mouth daily with breakfast. - TRADJENTA 5 mg tab Take 5 mg by mouth once daily. - meloxicam (MOBIC) 7.5 mg tablet Take 7.5 mg by mouth once daily. - DULoxetine (CYMBALTA) 60 mg capsule Take 60 mg by mouth once daily. Problem List As Of Date 08/09/2021 Noted Resolved NO SHOW [[id number]] 08/31/2013 05/29/2020 Perineal abscess [L02.215] 06/13/2019 05/29/2020 Nicotine use disorder, F17.2 [F17.200] 06/14/2019 Pilonidal cyst without abscess [L05.91] 05/29/2020 Pilonidal cyst with abscess [L05.01] 12/31/2020 Perirectal abscess [K61.1] 01/16/2021 Diabetes (HCC) [E11.9] 01/18/2021 Encounter Status:Closed by BYRON ESPINAL RN on 08/23/21 [facility] CNOVon 08-05-2021 CNOV Office Visit (GENSME ) ANMOL REYNOLDS ([id number]) 1960 M Date Time Provider Department 08/05/21 10:15 AM PENNY CAMERON During your visit today, we recorded the following information about you: Pulse Blood pressure Weight Height 66/minute 102/74 63.5 kg 1.88 m Penny Cameron MD 08/21/2021 2:37 PM Signed Assessment IMPRESSION/PLAN: Anmol Reynolds is a 61 year old male wm with healed perirectal abscess and with persistent pilonidal cyst without infection. Currently no intervention needed He is followed by Dr Monroy and Dr Molina of GI. I will review old records but I recommend he proceed with colonoscopy for further eval of weight loss and elevated tumor markers. If negative may consider MRI pancreas. We also discussed the necessity of controlling blood sugars and bringing down his Hgb A1c below 6 especially in regardfs to recurrent infections .. He states his diet is controlled so this may be an additional reason to pursue pancreas MRI HISTORY of PRESENT ILLNESS: Anmol Reynolds is a 61 year old male who presents in follow up of pilonidal cyst. He has also had h/o perirectal abscess most recently drained in 01/2021. Pt c/o pilonidal abscess that "burst" last week, since has no pain, no f/c. His main c/o is progressive unintentional weight loss and weakness, hardly can walk, unable to work. Was 205# 05/2020, now 140#. Has been followed by Dr Monroy and referred to Dr Molina of GI.he has had cts, bone scan, blood work and EGD without etiology for his weight loss. He has elevated cea and ca 19-9, no pancrease abnormality on ct, no mri done. Colonoscopy recommendd but pt hesitant to get. Also has poorly controlled HgbA1c - last was 13.5. states his appetite is good SURGICAL HISTORY: PAST SURGICAL HISTORY Procedure Laterality Date - I AND D OF PERIANAL ABSCESS, SIMPLE 05/04/2020 in ER - INC/DRAINAGE OF PERINEAL ABSCESS 06/13/[address] Franklin - JOINT REPLACEMENT HX ankle surgery right PAST MEDICAL HISTORY: PAST MEDICAL HISTORY Diagnosis Date - Diabetes (HCC) - Neuropathy - Pilonidal cyst without abscess 05/29/2020 - Sciatica ALLERGIES: ALLERGIES No Known Allergies MEDICATIONS: Current Outpatient Medications Medication Sig - gabapentin (NEURONTIN) 300 mg capsule Take 300 mg by mouth three times daily. - naproxen sodium (ALEVE) 220 mg cap Take 1 capsule by mouth as needed. - RYBELSUS 7 mg tablet Take 7 mg by mouth once daily. - oxyCODONE-acetaminoph en (PERCOCET) 5-325 mg tablet Take 1 tablet by mouth three times daily. - JANUVIA 100 mg tablet Take 100 mg by mouth once daily. - ibuprofen (MOTRIN) 600 mg tablet Take 1 tablet by mouth every 6 hours as needed for Pain. - atorvastatin (LIPITOR) 40 mg tablet - XIGDUO XR 10-1,000 mg XR tab Take 1 tablet by mouth daily with breakfast. - TRADJENTA 5 mg tab Take 5 mg by mouth once daily. - meloxicam (MOBIC) 7.5 mg tablet Take 7.5 mg by mouth once daily. - DULoxetine (CYMBALTA) 60 mg capsule Take 60 mg by mouth once daily. No current facility-administered medications for this visit. SOCIAL HISTORY: Social History Tobacco Use - Smoking status: Current Every Day Smoker Packs/day: 1.00 Types: Cigarettes - Smokeless tobacco: Never Used Vaping Use - Vaping Use: Never used Substance Use Topics - Alcohol use: No - Drug use: Not Currently FAMILY HISTORY:History reviewed. No pertinent family history. Ros: GENERAL:No weight loss, No malaise, No fevers HEENT:Negative for frequent or significant headaches, No changes in hearing or vision, no nose bleeds or other nasal problems" CARDIOVASCULAR: Negative for chest pain, Negative for leg swelling, Negative for palpitaions RESPIRATORY:Negative for cough, Negative for wheezing , Negative for shortness of breath GASTROINTESTINAL: Negative for abdominal discomfort, Negative for blood in stools, Negative for black stools and Negative for change in bowel habits GENITOURINARY: No history of dysuria, frequency or incontinence. ENDOCRINE:None MUSCULOSKELETAL: Negative for joint pain , Negative for swelling, Positive for:, weakness of muscles or joints, back pain NEUROLOGIC:Negative for focal numbness Negative for weakness Negative for headache Negative for syncope Negative for dizziness HEMATOLOGIC/LYMPHATIC /IMMUNOLOGIC:Negative for prolonged bleeding, bruising easily or swollen nodes. EXAMINATION: BP 102/74 Pulse 66 Ht 188 cm (6' 2") Wt 63.5 kg (140 lb) BMI 17.97 kg/m? Body mass index is 17.97 kg/m?. General appearance: thin and frail appearing, alert, in no acute distress Presents in wheelchair Head: Normocephalic, atraumatic Eyes: Anicteric sclera , Pupils are equally round and reactive Neck: No JVD, Trachea midline Rectal: perirectal abscess IANDD site healed, alice cleft with 7mm openoing, tracks 1.4cm at 9 oclock and 1.7c,m at 1 (more content not included)... Normal [facility] CA 19-9on 05-23-2021 CA 19-9 284 U/mL High <36 [facility] Comment on above: Performed By: #### C A199 #### [facility] [address] [place], [place] [address] #### TSH, FT4, FREET3 #### [facility] [address] [place], [place] [address] Free T3on 05-22-2021 Free T3 [Mass/Vol] 1.7 pg/mL Low 2.3-4.1 [facility] Comment on above: Performed By: #### C A199 #### [facility] [address] [place], [place] [id number] #### TSH, FT4, FREET3 #### [facility] [address] [place] [address] Free T4on 05-22-2021 Free T4 [Mass/Vol] 1.2 ng/dL Normal 0.9-1.7 [facility] Comment on above: Performed By: #### C A199 #### [facility] [address] [place] [address] #### TSH, FT4, FREET3 #### [facility] [address] [place] [address] TSHon 05-22-2021 TSH Qn 1.450 m[IU]/L Normal 0.270-4.200 [facility] Comment on above: Performed By: #### C A199 #### [facility] [address] [place] [address] #### TSH, FT4, FREET3 #### [facility] [address] [place], [place] [id number] Basic Metabolic Panelon 10-06 Anion gap [Moles/Vol] 14 mmol/L Normal 9-15 [facility] Comment on above: Performed By: #### B MP #### [facility] [address] [place] [address] Calcium [Mass/Vol] 8.4 mg/dL Low 8.5-9.9 [facility] Comment on above: Performed By: #### B MP #### [facility] [address] [place] [address] Chloride [Moles/Vol] 100 mmol/L Normal 95-107 [facility] Comment on above: Performed By: #### B MP #### [facility] [address] [place] [address] CO2 [Moles/Vol] 23 mmol/L Normal 20-31 [facility] Comment on above: Performed By: #### B MP #### [facility] [address] [place] [address] Creatinine [Mass/Vol] 0.57 mg/dL Low 0.70-1.20 [facility] Comment on above: Performed By: #### B MP #### [facility] [address] [place] [address] GFR/1.73 sq M predicted among blacks MDRD (S/P/Bld) [Vol rate/Area] mL/min/{1.73_m2} Normal >60 [facility] Comment on above: Result Comment: >60 mL/min/1.73m2 EGFR, calc. for ages 18 and older using the MDRD formula (not corrected for weight), is valid for stable renal function. Performed By: #### B MP #### [facility] [address] [place] [address] GFR/1.73 sq M.predicted MDRD (S/P/Bld) [Vol rate/Area] mL/min/{1.73_m2} Normal >60 [facility] Comment on above: Result Comment: >60 mL/min/1.73m2 EGFR, calc. for ages 18 and older using the MDRD formula (not corrected for weight), is valid for stable renal function. Performed By: #### B MP #### [facility] [address] [place] [address] Glucose [Mass/Vol] 245 mg/dL Critically high 70-99 [facility] Comment on above: Performed By: #### B MP #### [facility] [address] [place] [address] Potassium [Moles/Vol] 3.9 mmol/L Normal 3.4-4.9 [facility] Comment on above: Performed By: #### B MP #### [facility] [address] [place] [address] Sodium [Moles/Vol] 137 mmol/L Normal 135-144 [facility] Comment on above: Performed By: #### B MP #### [facility] [address] [place] [address] Urea nitrogen [Mass/Vol] 13 mg/dL Normal 6-20 [facility] Comment on above: Performed By: #### B MP #### [facility] [address] [place] [address] Anion gap [Moles/Vol] 14 mmol/L [place], [place] Calcium [Mass/Vol] 8.4 mg/dL Low 8.5 - 9.9 mg/dL [place], [place] Chloride [Moles/Vol] 100 mmol/L [place], [place] CO2 [Moles/Vol] 23 mmol/L [place], [place] Creatinine [Mass/Vol] 0.57 mg/dL Low 0.7 - 1.2 mg/dL [place], [place] GFR >60.0 >60 [place], [place] Comment on above: >60 mL/min/1.73m2 EG FR, calc. for ages 18 and older using the MDRD formula (not corrected for weight), is valid for stable renal function. GFR Non- >60.0 >60 [place], [place] Comment on above: >60 mL/min/1.73m2 EG FR, calc. for ages 18 and older using the MDRD formula (not corrected for weight), is valid for stable renal function. Glucose [Mass/Vol] 245 mg/dL High 70 - 99 mg/dL [place] Interpretation and review of laboratory results Abnormal [place] Potassium [Moles/Vol] 3.9 mmol/L [place] Sodium [Moles/Vol] 137 mmol/L [place] Urea nitrogen [Mass/Vol] 13 mg/dL 6 - 20 mg/dL [place] CBC Auto Differentialon 10-06 Basophils (Bld) [#/Vol] 0.0 10*3/uL 0 - 0.2 K/uL [place] Basophils/100 WBC (Bld) 0.4 % [place] Eosinophils (Bld) [#/Vol] 0.2 10*3/uL 0 - 0.7 K/uL [place] Eosinophils/100 WBC (Bld) 1.6 % [place] Erythrocyte distribution width (RBC) [Ratio] 13.1 % 11.5 - 14.5 % [place] Hematocrit (Bld) [Volume fraction] 39.0 % Low 42 - 52 % [place] Hemoglobin (Bld) [Mass/Vol] 13.3 g/dL Low 14 - 18 g/dL [place] Interpretation and review of laboratory results Abnormal [place] Lymphocytes (Bld) [#/Vol] 1.8 10*3/uL 1 - 4.8 K/uL [place] Lymphocytes/100 WBC (Bld) 16.0 % [place] MCH (RBC) [Entitic mass] 33.3 pg High 27 - 31.3 pg [place] MCHC (RBC) [Mass/Vol] 34.0 % 33 - 37 % [place] MCV (RBC) [Entitic vol] 98.0 fL 80 - 100 fL [place] Monocytes (Bld) [#/Vol] 1.2 10*3/uL High 0.2 - 0.8 K/uL [place] Monocytes/100 WBC (Bld) 10.8 % [place] Neutrophils Absolute 7.8 K/uL High 1.4 - 6 .5 K/uL [place] Neutrophils/100 WBC (Bld) 71.2 % [place] Platelets (Bld) [#/Vol] 232 10*3/uL 130 - 400 K/uL [place] RBC (Bld) [#/Vol] 3.98 10*6/uL Low [place] WBC (Bld) [#/Vol] 10.9 10*3/uL High 4.8 - 10.8 K/uL [place] CBC With Platelet and Differ entialon 10-25-2020 Basophils (Bld) [#/Vol] 0.0 10*3/uL Normal 0.0-0.2 [facility] Comment on above: Performed By: #### C BCWD #### [facility] [address] [place] [address] Basophils/100 WBC (Bld) 0.4 % Normal [facility] Comment on above: Performed By: #### C BCWD #### [facility] [address] [place] [address] Eosinophils (Bld) [#/Vol] 0.2 10*3/uL Normal 0.0-0.7 [facility] Comment on above: Performed By: #### C BCWD #### [facility] [address] [place] [address] Eosinophils/100 WBC (Bld) 1.6 % Normal [facility] Comment on above: Performed By: #### C BCWD #### [facility] [address] [place] [address] Erythrocyte distribution width (RBC) [Ratio] 13.1 % Normal 11.5-14.5 [facility] Comment on above: Performed By: #### C BCWD #### [facility] [address] [place] [address] Hematocrit (Bld) [Volume fraction] 39.0 % Low 42.0-52.0 [facility] Comment on above: Performed By: #### C BCWD #### [facility] [address] [place] [address] Hemoglobin (Bld) [Mass/Vol] 13.3 g/dL Low 14.0-18.0 [facility] Comment on above: Performed By: #### C BCWD #### [facility] [address] [place] [address] Lymphocytes (Bld) [#/Vol] 1.8 10*3/uL Normal 1.0-4.8 [facility] Comment on above: Performed By: #### C BCWD #### [facility] [address] [place] [address] Lymphocytes/100 WBC (Bld) 16.0 % Normal [facility] Comment on above: Performed By: #### C BCWD #### [facility] [address] [place] [address] MCH (RBC) [Entitic mass] 33.3 pg Critically high 27.0-3 1.3 [facility] Comment on above: Performed By: #### C BCWD #### [facility] [address] [place] [address] MCHC (RBC) [Mass/Vol] 34.0 % Normal 33.0-37.0 [facility] Comment on above: Performed By: #### C BCWD #### [facility] [address] [place] [address] MCV (RBC) [Entitic vol] 98.0 fL Normal 80.0-100.0 [facility] Comment on above: Performed By: #### C BCWD #### [facility] [address] [place] [address] Monocytes (Bld) [#/Vol] 1.2 10*3/uL Critically high 0.2-0. 8 [facility] Comment on above: Performed By: #### C BCWD #### [facility] [address] [place] [address] Monocytes/100 WBC (Bld) 10.8 % Normal [facility] Comment on above: Performed By: #### C BCWD #### [facility] [address] [place] [address] Neutrophils (Bld) [#/Vol] 7.8 10*3/uL Critically high 1.4-6.5 [facility] Comment on above: Performed By: #### C BCWD #### [facility] [address] [place] [address] Neutrophils/100 WBC (Bld) 71.2 % Normal [facility] Comment on above: Performed By: #### C BCWD #### [facility] [address] [place] [address] Platelets (Bld) [#/Vol] 232 10*3/uL Normal 130-400 [facility] Comment on above: Performed By: #### C BCWD #### [facility] [address] [place] [address] RBC (Bld) [#/Vol] 3.98 10*6/uL Low 4.70-6.10 [facility] Comment on above: Performed By: #### C BCWD #### [facility] [address] [place] [address] WBC (Bld) [#/Vol] 10.9 10*3/uL Critically high 4.8-10.8 [facility] Comment on above: Performed By: #### C BCWD #### [facility] [address] [place] [address] Hemoglobin A1con 10-25-2020 HbA1c (Bld) [Mass fraction] 12.1 % Critically high 4.8-5.9 [facility] Comment on above: Performed By: #### A 1C ####[facility] [place] [phone] HbA1c (Bld) [Mass fraction] 12.1 % High 4.8 - 5.9 % [place] Interpretation and review of laboratory results Abnormal [place] POCT Glucoseon 10-25-2020 Glucose [Mass/Vol] 372 mg/dL Critically high 60-115 [facility] Comment on above: Performed By: #### P GLU #### [facility] [address] [place] [address] POC Performed on ACCU-CHEK Normal [facility] Comment on above: Result Comment: Karina chamberlain RN or Performed By: #### P GLU #### [facility] [address] [place] [address] Glucose [Mass/Vol] 372 mg/dL High 60 - 115 mg/dl [place] Interpretation and review of laboratory results Abnormal [facility] [place] Performed on ACCU-CHEK [facility] [place] Comment on above: Notified RN or MD Glucose [Mass/Vol] 246 mg/dL Critically high 60-115 [facility] Comment on above: Performed By: #### P GLU #### [facility] [address] [facility] [address] POC Performed on ACCU-CHEK Normal [facility] Comment on above: Performed By: #### P GLU #### [facility] [address] [facility] [place] [address] Glucose [Mass/Vol] 246 mg/dL High 60 - 115 mg/dl [place] Interpretation and review of laboratory results [facility] [place] FL LESS THAN 1 HOURon 2020 FL LESS THAN 1 HOUR [place] LESS THAN 1 HOUR : 10/24/2020 1:44 PM CLINICAL HISTORY: R52 Pain ICD10. Lumbar stenosis. COMPARISON: None available. Intraoperative fluoroscopy was provided for Dr. Vigil's procedure. A total of 2.6 mGy of fluoroscopy was used, with 3 fluoroscopic stills saved. No diagnostic images were obtained. Please see Dr. Vigil's surgical notes for complete details. Interpreted by: Mickey Branch DO Signed by: Mickey Branch DO 10/26/20 Final result Normal [facility] OPERATIVE REPORTon OPERATIVE REPORT [address] [address] OPERATIVE REPORT PATIENT NAME: ANMOL REYNODLS : 1960 MED REC NO: [id number] ROOM: ACCOUNT NO: [id number] ADMIT DATE: 10/24/2020 PROVIDER: Opal Vigil MD DATE OF PROCEDURE: 10/24/2020 PREOPERATIVE DIAGNOSIS: L2-3, L3-4, L4-5 canal stenosis with neurogenic claudication. POSTOPERATIVE DIAGNOSIS: L2-3, L3-4, L4-5 canal stenosis with neurogenic claudication. OPERATION PERFORMED: Left and bilateral L2-3, L3-4, L4-5 microdecompressions. SURGEON: Opal Vigil MD ANESTHESIA: General endotracheal anesthesia. OPERATIVE PROCEDURE: The patient was given general endotracheal anesthesia in supine position and turned to the prone position. Back was prepped and draped. Time-out, patient identified. Needle was placed. Lateral x-rays obtained to confirm level and needle was withdrawn. Skin infiltrated with a solution of lidocaine plus epinephrine. Skin incision made over the tips of spinous processes of L2, 3, 4, 5. Dissection was carried down the spinous process tips. On the left side only, the spinous processes, lamina and the medial aspect of the facet joint complexes exposed L2, 3, 4, 5. Needle was placed. Lateral x-rays obtained to confirm level. Microretractor was placed at L4-5. Microscope was brought into field. With the use of the microscope, the ligamentum flavum was detached from the inferior aspect of L4, medial aspect of the facet joint complex L4-5, superior lamina of L5 performing a foraminotomy over the exit of the left L5 nerve root. Microscope angled over the dorsal aspect of the dural sac to the right side detaching the ligamentum flavum from the inferior aspect of lamina of L4 on the right, medial aspect of the facet joint, superior lamina of L5 accomplishing a left and bilateral L4-5 microdecompression. Microscope retractor moved to L3-4 on the left. Ligamentum flavum detached from the inferior aspect of L3, medial aspect of L3-4 facet and superior aspect of the L4 lamina on the left. Microscope angled over the dorsal aspect of the dural sac to the right side detaching the ligamentum flavum from the inferior aspect of L3 on the right, medial aspect of facet joint and from the superior lamina of L4 accomplishing a left and bilateral L3-4 microdecompression. Microscope retractor moved to L2-3 on the left side. Ligamentum flavum detached from the inferior aspect of L2, medial aspect of the facet joint preserving the facet joint and from the superior aspect of L3 lamina. Microscope angled over the dorsal aspect of the dural sac to the patient's right side detaching the ligamentum flavum from the inferior aspect of L2 on the right, medial aspect of the facet joint, superior lamina of L3, now accomplishing a left and bilateral L4-5, L3-4 and L2-3 microdecompressions. The wound was thoroughly irrigated. A wound drain was placed. The fascia closed with 0 Vicryl suture. Subcutaneous tissues were closed with 2-0, 3-0 Vicryl suture. EBL 50 mL. No blood transfused. The patient tolerated well. OPAL VIGIL MD [id number] Doc#: [id number] CC: Normal [facility] POCT Glucoseon 10-24-2020 Glucose [Mass/Vol] 439 mg/dL Critically high 60-115 [facility] Comment on above: Performed By: #### P GLU #### [facility] [address] [facility] [address] POC [facility] on [facility] Comment on above: Result Comment: Karina chamberlain RN or Performed By: #### P GLU #### [facility] [address] [facility] [address] Glucose [Mass/Vol] 439 mg/dL Critically high 60 - 1 15 mg/dl [place] Interpretation and review of laboratory results Abnormal [place] Performed on ACCU-CHEK [place] Comment on above: Notified RN or Glucose [Mass/Vol] 251 mg/dL Critically high 60-115 [facility] Comment on above: Performed By: #### P GLU #### [facility] [address] [facility] [address] POC Performed on [facility] Comment on above: Performed By: #### P GLU #### [facility] [address] [place] [address] Glucose [Mass/Vol] 251 mg/dL High 60 - 115 mg/dl [place] Interpretation and review of laboratory results Abnormal [place] Performed on ACCU-CHEK [place] Glucose [Mass/Vol] 299 mg/dL Critically high 60-115 [facility] Comment on above: Performed By: #### P GLU #### [facility] [address] [place] [address] POC Performed on ACCU-CHEK Normal [facility] Comment on above: Performed By: #### P GLU #### [facility] [address] [place] [address] Glucose [Mass/Vol] 299 mg/dL High 60 - 115 mg/dl [place] Interpretation and review of laboratory results Abnormal [place] Performed on ACCU-CHEK [place] COVID-19, NAAon 10-19-2020 COVID-19, JOSSY Not Detected Normal Not Detect [facility] Comment on above: Result Comment: This nucleic acid amplification test was developed and its performance characteristics determined by [employer]. Nucleic acid amplification tests include PCR and TMA. This test has not been FDA cleared or approved. This test has been authorized by FDA under an Emergency Use Authorization (EUA). This test is only authorized for the duration of time the declaration that circumstances exist justifying the authorization of the emergency use of in vitro diagnostic tests for detection of SARS-CoV-2 virus and/or diagnosis of COVID-19 infection under section 564(b)(1) of the Act, 21 U.S.C. 360bbb-3(b) (1), unless the authorization is terminated or revoked sooner. When diagnostic testing is negative, the possibility of a false negative result should be considered in the context of a patient's recent exposures and the presence of clinical signs and symptoms consistent with COVID-19. An individual without symptoms of COVID-19 and who is not shedding SARS-CoV-2 virus would expect to have a negative (not detected) result in this assay. Performed at: [facility] [address] [facility], [place], [place] [id number] [employer] Foam Installer: Carmela Sue MD, Phone: [phone] Performed By: #### I RCOV #### [facility] [address] [place] [address] COVID-19, NAAon 10-18-2020 Source Swab Anterior nares Normal [facility] Comment on above: Performed By: #### I RCOV #### [facility] [address] [place] [address] Basic Metabolic Panelon 10-05 Anion gap [Moles/Vol] 14 mmol/L Normal 9-15 [facility] Comment on above: Performed By: #### B MP #### [facility] [address] [place] [address] Calcium [Mass/Vol] 9.3 mg/dL Normal 8.5-9.9 [facility] Comment on above: Performed By: #### B MP #### [facility] [address] [place] [address] Chloride [Moles/Vol] 100 mmol/L Normal 95-107 [facility] Comment on above: Performed By: #### B MP #### [facility] [address] [place] [address] CO2 [Moles/Vol] 23 mmol/L Normal 20-31 [facility] Comment on above: Performed By: #### B MP #### [facility] [address] [place] [address] Creatinine [Mass/Vol] 0.57 mg/dL Low 0.70-1.20 [facility] Comment on above: Performed By: #### B MP #### [facility] [address] [place] [address] GFR/1.73 sq M predicted among blacks MDRD (S/P/Bld) [Vol rate/Area] mL/min/{1.73_m2} Normal >60 [facility] Comment on above: Result Comment: >60 mL/min/1.73m2 EGFR, calc. for ages 18 and older using the MDRD formula (not corrected for weight), is valid for stable renal function. Performed By: #### B MP #### [facility] [address] [place] [address] GFR/1.73 sq M.predicted MDRD (S/P/Bld) [Vol rate/Area] mL/min/{1.73_m2} Normal >60 [facility] Comment on above: Result Comment: >60 mL/min/1.73m2 EGFR, calc. for ages 18 and older using the MDRD formula (not corrected for weight), is valid for stable renal function. Performed By: #### B MP #### [facility] [address] [place] [address] Glucose [Mass/Vol] 275 mg/dL Critically high 70-99 [facility] Comment on above: Performed By: #### B MP #### [facility] [address] [place] [address] Potassium [Moles/Vol] 4.2 mmol/L Normal 3.4-4.9 [facility] Comment on above: Performed By: #### B MP #### [facility] [address] [place] [address] Sodium [Moles/Vol] 137 mmol/L Normal 135-144 [facility] Comment on above: Performed By: #### B MP #### [facility] [address] [place] [address] Urea nitrogen [Mass/Vol] 11 mg/dL Normal 6-20 [facility] Comment on above: Performed By: #### B MP #### [facility] [address] [place] [address] CBC With Platelet No Differe ntialon 10-15-2020 Erythrocyte distribution width (RBC) [Ratio] 12.7 % Normal 11.5-14.5 [facility] Comment on above: Performed By: #### C BCND #### [facility] [address] [place] [address] Hematocrit (Bld) [Volume fraction] 50.9 % Normal 42.0-52.0 [facility] Comment on above: Performed By: #### C BCND #### [facility] [address] [place] [address] Hemoglobin (Bld) [Mass/Vol] 17.4 g/dL Normal 14.0-18.0 [facility] Comment on above: Performed By: #### C BCND #### [facility] [address] [place] [address] MCH (RBC) [Entitic mass] 33.8 pg Critically high 27.0-3 1.3 [facility] Comment on above: Performed By: #### C BCND #### [facility] [address] [place] [address] MCHC (RBC) [Mass/Vol] 34.2 % Normal 33.0-37.0 [facility] Comment on above: Performed By: #### C BCND #### [facility] [address] [place] [address] MCV (RBC) [Entitic vol] 98.8 fL Normal 80.0-100.0 [facility] Comment on above: Performed By: #### C BCND #### [facility] [address] [place] [address] Platelets (Bld) [#/Vol] 308 10*3/uL Normal 130-400 [facility] Comment on above: Performed By: #### C BCND #### [facility] [address] [place] [address] RBC (Bld) [#/Vol] 5.15 10*6/uL Normal 4.70-6.10 [facility] Comment on above: Performed By: #### C BCND #### [facility] [address] [place] [address] WBC (Bld) [#/Vol] 9.6 10*3/uL Normal 4.8-10.8 [facility] Comment on above: Performed By: #### C BCND #### [facility] [address] [place] [address] Partial Thromboplastin Timeo n 10-15-2020 aPTT Coag (Bld) [Time] 33.9 s Normal 24.4-36.8 [facility] Comment on above: Result Comment: Effe ctive 08/08/2020: Heparin Therapeutic Range: 64.0 ? 98.0 seconds. Performed By: #### P TT #### [facility] [address] [place] [address] Prothrombin Timeon 1 INR Coag (PPP) [Relative time] 0.9 {INR} Normal [facility] Comment on above: Performed By: #### P T #### [facility] [address] [place] [address] PT Coag (PPP) [Time] 12.6 s Normal 12.3-14.9 [facility] Comment on above: Performed By: #### P T #### [facility] [address] [place] [address] MRI Spine Lumbar w/ + w/o Co ntraston 06-15-2018 MRI Spine Lumbar w/ + w/o Contrast Patient Name: ANMOL REYNOLDS MRI Exam Date/Time 06/14/2018 15:59:06 EDT Exam MRI Spine Lumbar w/ + w/o Contrast Ordering Physician [id number] MELITON MCWILLIAMS Accession Number [id number] CPT4 Codes 32380 () Reason For Exam lt leg radiculopathy Report EXAM TYPE: MRI Spine Lumbar w/ + w/o Contrast EXAM DATE AND TIME: 06/14/2018 3:59 PM EDT INDICATION: Low back pain. Left-sided radiculopathy. COMPARISON: NONE TECHNIQUE: MR imaging of the lumbar spine was performed with and without intravenous contrast (19 ml of Multihance). FINDINGS: The last fully formed disc is considered L5-S1. There are surgical changes related to left-sided laminotomy at L5-S1 with associated posterior paraspinal muscular scarring and mild atrophy. No posterior paraspinal fluid collection is present. There is normal lumbar lordosis. There is anterolisthesis of L3 on L4 measuring 2.5 mm. Trace retrolisthesis of L4 on L5 measuring 3 mm. Vertebral body heights are maintained. Multilevel degenerative endplate changes are present throughout the lumbar spine with type I Modic endplate changes at L5-S1. Multilevel disc desiccation. Multilevel loss of disc height, including at L1-L2, L4-L5 and L5-S1. Tiny scattered Schmorl's nodes. The conus terminates at the L1-L2 level. The distal cord is normal in size and signal characteristics. There is redundancy of cauda equina nerve roots secondary to stenosis at the L3-L4 level. No abnormal intrathecal enhancement. No abnormal cord enhancement. T11-T12: Mild disc osteophyte complex. Mild spinal canal narrowing. No foraminal narrowing. T12-L1: No disc herniation. No spinal canal or foraminal narrowing. L1-L2: Mild disc osteophyte complex. Mild bilateral facet hypertrophy. Mild bilateral foraminal narrowing. Mild spinal canal narrowing. Mild narrowing of the lateral recesses. Congenital shortening of the pedicles. L2-L3: Mild disc bulge. Bilateral facet hypertrophy with ligamentum flavum infolding. Congenital shortening of the pedicles. Moderate spinal canal narrowing. Narrowing of the lateral recesses. Mild bilateral foraminal narrowing. Small bilateral foraminal disc protrusions. L3-L4: Grade 1 anterolisthesis. Mild disc bulge. Bilateral facet hypertrophy ligamentum flavum infolding. Congenital shortening of the pedicles. Severe spinal canal narrowing with effacement of the lateral recesses. Right foraminal disc protrusion. Moderate left and severe right foraminal narrowing. L4-L5: Mild disc bulge. Congenital shortening of the pedicles. Bilateral facet hypertrophy with ligamentum flavum infolding. Narrowing of the lateral recesses. Mild to moderate spinal canal narrowing. Mild bilateral foraminal narrowing. L5-S1: Mild disc osteophyte complex. Bilateral facet hypertrophy. Bilateral foraminal disc protrusions. This car/granulation tissue within the left neural foramen. Moderate to severe right and severe left foraminal narrowing. No spinal canal narrowing. IMPRESSION: 1. Surgical changes of left sided laminotomy at L5-S1. 2. Severe spinal canal narrowing at L3-L4. 3. 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 4. Severe foraminal narrowing at at L3-L4 and L5-S1, as described. Scar/granulation tissue contributes to narrowing on the left at L5-S1. 5. Otherwise, multilevel degenerative changes of the lumbar spine as described. Report Dictated on Final Dictating Physician: MD HORNER NEIL Signed Date and Time: 06/15/2018 8:32 am Signed by: MD HORNER NEIL Transcribed Date and Time: 06/15/2018 8:33 Normal [facility] Glucose, WB POCon 08-05-2017 Glucose mass conc 179 mg/dL High 70-100 [facility] Comment on above: Performed By: #### 1 [id number] ####[facility] [address] [place] [address] Glucose mass conc 194 mg/dL High 70-100 [facility] Comment on above: Performed By: #### 1 [id number] ####[facility] [address] [place] [address] SPINE LUMBAR SINGLE VIEWon 10-05-2016 SPINE LUMBAR SINGLE VIEW DATE OF EXAM: N ov 2016 1:18PMCLINICAL HISTORY/ Name: GIVEN, BRIANSTUDY:SPINE LUMBAR SINGLE VIEW; 08/05/2017 1:18 pmINDICATION:intra op.COMPARISON:None. CESSION NUMBER(S):[id number] RDERING CLINICIAN:OPAL MONGE:Single lateral view of the lumbar spine during lumbar spine surgery. Surgical marker at L5-S1 level. Fluoroscopic time is 0.05 sec.CONCLUSION: IMPRESSION:Fluoroscop ic image of the lumbar spine during surgery. Please refer to the surgical note for further details. Normal [facility] CBC With Differentialon 07-07 Basophils Auto #/vol (Bld) 0.02 10*3/uL Normal 0.01-0.09 [facility] Comment on above: Performed By: #### 2 [id number] ####[facility] [address] [place] [address] Basophils/100 WBC Auto (Bld) 0.2 % Normal 0.0-1.3 [facility] Comment on above: Performed By: #### 2 [id number] ####[facility] [address] [place] [address] Eosinophils 0.02 10*3/uL Normal 0.01-0.46 [facility] Comment on above: Performed By: #### 2 [id number] ####[facility] [address] [place] [address] Eosinophils/100 leukocytes 0.2 % Normal 0.0-6.7 [facility] Comment on above: Performed By: #### 2 [id number] ####[id number] [place] [address] Erythrocyte distribution width Auto Ratio (RBC) 12.5 % Normal 12.0-15.4 [facility] Comment on above: Performed By: #### 2 [id number] ####[address] [place] [address] Erythrocytes (RBC) 0.00 10*3/uL Normal [facility] Comment on above: Performed By: #### 2 [id number] ####[id number] [place] [address] Erythrocytes (RBC) 5.10 10*6/uL Normal 4.08-6.37 [facility] Comment on above: Performed By: #### 2 [id number] ####[address] [place] [address] Erythrocytes (RBC) 0.0 /100{WBCs} Normal [facility] Comment on above: Performed By: #### 2 [id number] ####[id number] [place] [address] Hematocrit (HCT) 49.7 % Normal 38.4-54.9 [facility] Comment on above: Performed By: #### 2 [id number] ####[facility] [address] [place] [address] Hemoglobin mass conc (Bld) 17.2 g/dL Normal 12.8-17.7 [facility] Comment on above: Performed By: #### 2 [id number] ####[facility] [address] [place] [address] Imm Grans Absolute 0.03 10*3/uL Normal 0.00-0.21 [facility] Comment on above: Performed By: #### 2 [id number] ####[id number] [place] [address] Immature granulocytes #/vol (Bld) 0.3 % Normal [facility] Comment on above: Performed By: #### 2 [id number] ####[facility] [address] [place] [address] Lymphocytes 1.28 10*3/uL Normal 0.40-2.84 [facility] Comment on above: Performed By: #### 2 [id number] ####[facility] [address] [place] [address] Lymphocytes/100 leukocytes 11.9 % Normal 9.4-41.1 [facility] Comment on above: Performed By: #### 2 [id number] ####[facility] [address] [place] [address] MCH 33.7 pg High 27.5-32.9 [facility] Comment on above: Performed By: #### 2 [id number] ####[facility] [address] [place] [address] MCHC mass conc (RBC) 34.6 g/dL Normal 30.5-35.4 [facility] Comment on above: Performed By: #### 2 [id number] ####[facility] [address] [place] [address] MCV 97.5 fL Normal 83.3-98.2 [facility] Comment on above: Performed By: #### 2 [id number] ####[facility] [address] [place] [address] Monocytes 0.85 10*3/uL Normal 0.25-1.33 [facility] Comment on above: Performed By: #### 2 [id number] ####[facility] [address] [place] [address] Monocytes/100 leukocytes 7.9 % Normal 3.0-16.2 [facility] Comment on above: Performed By: #### 2 [id number] ####[facility] [address] [place] [address] Neutrophils 8.54 10*3/uL High 2.22-7.53 [facility] Comment on above: Performed By: #### 2 [id number] ####[facility] [address] [place] [address] Neutrophils/100 leukocytes 79.5 % High 46.2-79.1 [facility] Comment on above: Performed By: #### 2 [id number] ####[facility] [address] [place] [address] Platelet mean volume (PMV) 10.4 fL Normal 9.9-12.1 [facility] Comment on above: Performed By: #### 2 [id number] ####[facility] [address] [place] [address] Platelets 334 10*3/uL Normal 155-404 [facility] Comment on above: Performed By: #### 2 402365 ####[facility] [address] [place] [address] RDW SD 45.3 fL Normal 39.3-48.6 [facility] Comment on above: Performed By: #### 2 462929 ####[facility] [address] [place] [address] WBC (Leukocytes) 10.7 10*3/uL Normal 4.2-11.0 [facility] Comment on above: Performed By: #### 2 [id number] ####[facility] [address] [place] [address] CHEST 2 VIEWS PA AND LATon 1 CHEST 2 VIEWS PA AND LAT DATE OF EXAM: O ct 2016 8:43AMCLINICAL HISTORY/ Name: GIVEN, BRIANSTUDY:CHEST 2 VIEWS PA AND LAT; 08/03/2017 8:43 amINDICATION:preop.CO MPARISON:None.ACCESSI ON NUMBER(S):[id number] RDERING CLINICIAN:OPAL MONGE:There is no definite acute infiltrate. The costophrenic angles are not blunted. There is no pneumothorax. The heart size and mediastinal width are within gross limits of normal. No prior chest radiograph is available for comparison.CONCLUSION : IMPRESSION:No definite acute pulmonary findings Normal [facility] Comprehensive Metabolic Pane antonio 08-03-2017 Alanine aminotransferase (ALT) 18 U/L Normal 10-52 [facility] Comment on above: Performed By: #### 1 [id number] ####[facility] [address] [place] [address] Albumin 4.9 g/dL Normal 3.4-5.0 [facility] Comment on above: Performed By: #### 1 [id number] ####[facility] [address] [place] [address] Albumin/Globulin Ratio 2.0 {ratio} Normal 0.9-2.4 [facility] Comment on above: Performed By: #### 1 [id number] ####[facility] [address] [place] [address] Alkaline phosphatase (ALP) 119 U/L High 45-117 [facility] Comment on above: Performed By: #### 1 [id number] ####[facility] [address] [place] [address] Anion gap 15 mmol/L Normal 10-20 [facility] Comment on above: Performed By: #### 1 042274 ####[facility] [address] [place] [address] Aspartate aminotransferase (AST) 15 U/L Normal 13-39 [facility] Comment on above: Performed By: #### 1 [id number] ####[facility] [address] [place] [address] Bicarbonate (HCO3) 22 mmol/L Normal 21-32 [facility] Comment on above: Performed By: #### 1 [id number] ####[facility] [address] [place] [address] Bilirubin (total) 1.0 mg/dL Normal 0.0-1.2 [facility] Comment on above: Performed By: #### 1 384711 ####[facility] [address] [place] [address] BUN/Creatinine Ratio 19 mg/mg Normal 5-25 [facility] Comment on above: Performed By: #### 1 330254 ####[facility] [address] [place] [address] Calcium 10.0 mg/dL Normal 8.6-10.3 [facility] Comment on above: Performed By: #### 1 147449 ####[facility] [address] [place] [address] Chloride 103 mmol/L Normal 98-107 [facility] Comment on above: Performed By: #### 1 043167 ####[facility] [address] [place] [address] Creatinine 0.64 mg/dL Normal 0.50-1.30 [facility] Comment on above: Performed By: #### 1 019690 ####[facility] [address] [place] [address] eGFR (MDRD) mL/min/{1.73_m2} Normal [facility] Comment on above: Result Comment: Inte rpretation for Chronic Kidney Disease:Stages 1&2 >60 Healthy or potential kidney damage.Mild decrease of GFR.Stage 3 30-59 Moderate decrease of GFR.Stage 4 15-29 Severe decrease of GFR.Stage 5 <15 Kidney failure or on dialysis. Performed By: #### 1 [id number] ####[facility] [address] [place] [address] Glucose mass conc 233 mg/dL High 70-100 [facility] Comment on above: Performed By: #### 1 603020 ####[facility] [address] [place] [address] Potassium molar conc 3.8 mmol/L Normal 3.5-5.1 [facility] Comment on above: Performed By: #### 1 473493 ####[facility] [address] [place] [address] Protein 7.4 g/dL Normal 6.4-8.2 [facility] Comment on above: Performed By: #### 1 384510 ####[facility] [address] [place] [address] Sodium 136 mmol/L Normal 136-145 [facility] Comment on above: Performed By: #### 1 496690 ####[facility] [address] [place] [address] Urea nitrogen 12 mg/dL Normal 6-23 [facility] Comment on above: Performed By: #### 1 834878 ####[facility] [address] [place] [address] ESR, Westergrenon 08-03-2017 ESR, Westergren 2 mm/h Normal 0-15 [facility] Comment on above: Performed By: #### 2 882534 ####[facility] [address] [place] [address] Prothrombin Time (PT) & Part ial Thromboplastin (PTT)on 08-03-2017 aPTT 29.2 s Normal 22.1-35.3 [facility] Comment on above: Result Comment: Hepa rin Therapeutic Range: 71 - 97 sec Performed By: #### P TPTT ####[facility] [address] [place] [address] INR Coag RelTime (PPP) 0.84 {INR} Low 0.85-1.16 [facility] Comment on above: Result Comment: Coum john Therapy:1.5 - 2.0 Low Intensity Therapy2.0 - 3.0 Moderate Intensity Therapy2.5 - 3.5 High (1) Intensity Therapy3.0 - 4.0 High (2) Intensity Therapy Performed By: #### P TPTT ####[facility] [address] [place] [address] Prothrombin time (PT) Coag time (PPP) 11.4 s Normal 11.3-14.5 [facility] Comment on above: Performed By: #### P TPTT ####[facility] [address] [place] [address] Urinalysison 08-03-2017 Ascorbic Acid Negative Normal Negative [facility] Comment on above: Performed By: #### 1 [id number] ####[facility] [address] [place] [address] Automated Urine Microscopy Not indicated Normal [facility] Comment on above: Performed By: #### 1 147423 ####[facility] [address] [place] [address] Bilirubin Ql (U) Negative Normal Negative [facility] Comment on above: Performed By: #### 1 729672 ####[facility] [address] [place] [address] Blood Negative Normal Negative [facility] Comment on above: Performed By: #### 1 039181 ####[facility] [address] [place] [address] Glucose mass conc mg/dL Abnormal Negative [facility] Comment on above: Performed By: #### 1 [id number] ####[facility] [address] [place] [address] Protein Negative Normal Negative [facility] Comment on above: Performed By: #### 1 374524 ####[facility] [address] [place] [address] Urine, appearance Clear Normal Clear [facility] Comment on above: Performed By: #### 1 [id number] ####[facility] [address] [place] [address] Urine, color Yellow Normal [facility] Comment on above: Performed By: #### 1 [id number] ####[facility] [address] [place] [address] Urine, ketones presence Negative Normal Negative [facility] Comment on above: Performed By: #### 1 301574 ####[facility] [address] [place] [address] Urine, nitrite presence Negative Normal Negative [facility] Comment on above: Performed By: #### 1 411391 ####[facility] [address] [place] [address] Urine, pH 5.0 [pH] Normal 5.0-9.0 [facility] Comment on above: Performed By: #### 1 768666 ####[facility] [address] [place] [address] Urine, specific gravity 1.033 Normal 1.003-1.035 [facility] Comment on above: Performed By: #### 1 875515 ####[facility] [address] [place] [address] Urine, urobilinogen <2.0 Normal Negative [facility] Comment on above: Performed By: #### 1 [id number] ####[facility] [address] [place] [address] WBC (Leukocytes) Negative Normal Negative [facility] Comment on above: Performed By: #### 1 [id number] ####[facility] [address] [place] [address] DX LUMBOSACRAL SPINE, BENDIN G VIEWS ONLY, 2 OR 3 VIEWSon 05-27-2017 DX LUMBOSACRAL SPINE, BENDING VIEWS ONLY, 2 OR 3 VIEWS Performed at [facility] APPROVED BY: Robert Velarde MD EXAM TITLE:DX LUMBOSACRAL SPINE, BENDING VIEWS ONLY, 2 OR 3 VIEWS DATE:05/27/2017 08:55 COMPARISON: 05/27/2017 CLINICAL INDICATION/HISTORY: Low back pain left lower extremity numbness TECHNIQUE: Neutral/flexion/exten krystal lateral views of the lumbar spine FINDINGS: Moderate degree multilevel degenerative changes with disc space narrowing endplate degenerative changes.4 mm degenerative spondylolisthesis L3-4 levels unchanged with flexion or extension.Degenerativ e disc space narrowing L5-S1 level.Chronic wedge-shaped deformity of the L1 vertebral body. IMPRESSION: No acute abnormalities are seen. Refer to MRI performed the same day.4 mm degenerative spondylolisthesis L3-4 levels unchanged with flexion or extension. Normal [facility] MRI LUMBAR SPINE W/O CONTRAS Ton 05-27-2017 MRI LUMBAR SPINE W/O CONTRAST Performed at [facility] APPROVED BY: Jose Schumacher MD LUMBAR SPINE MRI WITHOUT CONTRAST ENHANCEMENT Serial images were obtained in the sagittal and transverse planes with T1W and T2W. The study was performed to further evaluate low back pain in conjunction with left lower extremity pain and paresthesias. Serial images demonstrate the presence of a large far lateral focal protrusion of the intervertebral disc on the left at the L5-S1 level with rostral extension. There is associated compromise of the exiting left L5 nerve root at the level of the left L5-S1 neural foramen. Due to the far lateral position of the disc material, there is no significant associated compromise of the thecal sac or of the proximal left S1 nerve root. Serial images demonstrate the presence of central stenosis, mild at the L1-L2 intervertebral disc level, moderate at the L2-L3 and L4-L5 levels, and severe at the L3-L4 level. The stenosis results from a combination of congenital narrowing ("short" pedicles) and superimposed degenerative change including annular bulging, facet hypertrophy, and thickening of the ligamenta flava. In addition, a mild degenerative spondylolisthesis contributes to the stenosis at the L3-L4 level while a mild degenerative retrolisthesis contributes to the stenosis at the L4-L5 level. Serial images demonstrate the presence of a moderate degree of degenerative foraminal stenosis bilaterally at the L3-L4 level with associated compromise of the exiting L3 nerve roots. The stenosis results from a combination of annular bulging, facet hypertrophy, osteophyte formation, as well as the previously noted L3-L4 spondylolisthesis. The conus medullaris demonstrates normal caliber and signal intensity. There is no definite evidence of an intraspinal or of a paraspinal soft tissue mass. A mild degenerative spondylolisthesis is identified at the L3-L4 level in conjunction with a mild degenerative retrolisthesis at both the L4-L5 and L5-S1 levels. IMPRESSION: 1. Large far lateral extruded disc fragment on the left at the L5-S1 level as described above with rostral extension and compromise of the exiting left L5 nerve root at the level of the left L5-S1 neural foramen. 2. Central stenosis as noted, mild at the L1-L2 intervertebral disc level, moderate at the L2-L3 and L4-L5 levels, and severe at the L3-L4 level. The stenosis results from a combination of congenital narrowing and superimposed degenerative change. 3. Degenerative foraminal stenosis bilaterally at the L3-L4 level as described above with compromise of the exiting L3 nerve roots. 4. Degenerative spondylolisthesis at the L3-L4 level as noted in conjunction with a degenerative retrolisthesis at the L4-L5 and L5-S1 levels. Normal [facility] Vital Signs Date Time Vital Sign Value Performing Clinician Facility 04-28-2025 20:11-0400 Body temperature 97.3 [degF] Brad Campos MD Work Phone: [facility] 04-28-2025 20:11-0400 Diastolic blood pressure 64 mm[Hg] Brad Campos MD Work Phone: [facility] 04-28-2025 20:11-0400 Heart rate 76 /min Brad Campos MD Work Phone: [facility] 04-28-2025 20:11-0400 Respiratory rate 16 /min Brad Campos MD Work Phone: [facility] 04-28-2025 20:11-0400 SaO2% (BldA) [Mass fraction] 92 % Brad Campos MD Work Phone: [facility] 04-28-2025 20:11-0400 Systolic blood pressure 106 mm[Hg] Brad Campos MD Work Phone: [facility] 04-24-2025 13:34-0400 Body height 190.5 cm Brad Campos MD Work Phone: [facility] 04-22-2025 03:00-0400 Body mass index (BMI) [Ratio] 24.42 kg/m2 Brad Campos MD Work Phone: [facility] 04-22-2025 03:00-0400 Body weight 88.63 kg Brad Campos MD Work Phone: [facility] 03-14-2025 13:56-0400 Body temperature 98.01 [degF] Milad Goodson MD Work Phone: [facility] 03-14-2025 13:56-0400 Diastolic blood pressure 70 mm[Hg] Milad Goodson MD Work Phone: [facility] 03-14-2025 13:56-0400 Heart rate 84 /min Milad Goodson MD Work Phone: [facility] 03-14-2025 13:56-0400 Respiratory rate 20 /min Milad Goodson MD Work Phone: [facility] 03-14-2025 13:56-0400 SaO2% (BldA) [Mass fraction] 97 % Milad Goodson MD Work Phone: [facility] 03-14-2025 13:56-0400 Systolic blood pressure 107 mm[Hg] Milad Goodson MD Work Phone: [facility] 03-07-2025 08:54-0400 Diastolic blood pressure 52 mm[Hg] Yoana Solitario PAINTER [employer] - DOCUMENT MANAGEMENT TECHNICIAN Work Phone: [facility] 03-07-2025 08:54-0400 Heart rate 68 /min Yoana Solitario [employer]INTER [employer] - DOCUMENT MANAGEMENT TECHNICIAN Work Phone: [facility] 03-07-2025 08:54-0400 Systolic blood pressure 107 mm[Hg] Yoana Solitario [employer]INTER [employer] - DOCUMENT MANAGEMENT TECHNICIAN Work Phone: [facility] 01-31-2025 13:27-0400 Body temperature 98.6 [degF] Milad Goodson MD Work Phone: [facility] 01-31-2025 13:27-0400 Diastolic blood pressure 90 mm[Hg] Milad Goodson MD Work Phone: [facility] 01-31-2025 13:27-0400 Heart rate 80 /min Milad Goodson MD Work Phone: [facility] 01-31-2025 13:27-0400 Respiratory rate 18 /min Milad Goodson MD Work Phone: [facility] 01-31-2025 13:27-0400 SaO2% (BldA) [Mass fraction] 95 % Milad Goodson MD Work Phone: [facility] 01-31-2025 13:27-0400 Systolic blood pressure 136 mm[Hg] Milad Goodson MD Work Phone: [facility] 06-13-2024 10:56-0400 Diastolic blood pressure 72 mm[Hg] [facility] 06-13-2024 10:56-0400 Heart rate 85 /min [facility] 06-13-2024 10:56-0400 Respiratory rate 18 /min [facility] 06-13-2024 10:56-0400 SaO2% (BldA) [Mass fraction] 98 % [facility] 06-13-2024 10:56-0400 Systolic blood pressure 114 mm[Hg] [facility] 05-22-2024 08:09-0400 Body temperature 96.8 [degF] Rodney Guerrero DO Work Phone: [facility] 05-22-2024 08:09-0400 Diastolic blood pressure 76 mm[Hg] Rodney Guerrero DO Work Phone: [facility] 05-22-2024 08:09-0400 Heart rate 70 /min Rodney Guerrero DO Work Phone: [facility] [place] 05-22-2024 08:09-0400 Respiratory rate 16 /min Rodney Guerrero DO Work Phone: [facility] [place] 05-22-2024 08:09-0400 SaO2% (BldA) [Mass fraction] 99 % Rodney Guerrero DO Work Phone: [facility] [place] 05-22-2024 08:09-0400 Systolic blood pressure 128 mm[Hg] Rodney Guerrero DO Work Phone: [facility] [place] 05-19-2024 13:00-0400 Body mass index (BMI) [Ratio] 26.62 kg/m2 Rodney Guerrero DO Work Phone: [facility] 05-19-2024 13:00-0400 Body weight 96.62 kg Rodney Guerrero DO Work Phone: [facility] [place] 05-18-2024 01:26-0400 Body height 190.5 cm Rodney Guerrero DO Work Phone: [facility] [place] 05-06-2024 17:08-0400 Body temperature 98.01 [degF] Joan Patel MD Work Phone: [facility] [place] 05-06-2024 17:08-0400 Diastolic blood pressure 67 mm[Hg] Joan Patel MD Work Phone: [facility] [place] 05-06-2024 17:08-0400 Heart rate 82 /min Joan Patel MD Work Phone: [facility] [place] 05-06-2024 17:08-0400 Respiratory rate 16 /min Joan Patel MD Work Phone: [facility] [place] 05-06-2024 17:08-0400 SaO2% (BldA) [Mass fraction] 91 % Joan Patel MD Work Phone: [facility] [place] 05-06-2024 17:08-0400 Systolic blood pressure 114 mm[Hg] Joan Patel MD Work Phone: [facility] [place] 05-05-2024 18:30-0400 Body height 190.5 cm Joan Patel MD Work Phone: [facility] [place] 05-05-2024 18:30-0400 Body mass index (BMI) [Ratio] 26.62 kg/m2 Joan Patel MD Work Phone: [facility] [place] 05-05-2024 18:30-0400 Body weight 96.62 kg Joan Patel MD Work Phone: [facility] [place] 04-20-2024 11:39-0400 Body temperature 97.81 [degF] Ernesto Dickens MD Work Phone: [facility] [place] 04-20-2024 11:39-0400 Diastolic blood pressure 81 mm[Hg] Ernesto Dickens MD Work Phone: [facility] 04-20-2024 11:39-0400 Heart rate 84 /min Ernesto Dickens MD Work Phone: [facility] [place] 04-20-2024 11:39-0400 SaO2% (BldA) [Mass fraction] 97 % Ernesto Dickens MD Work Phone: [facility] 04-20-2024 11:39-0400 Systolic blood pressure 135 mm[Hg] Ernesto Dickens MD Work Phone: [facility] 04-20-2024 09:55-0400 Respiratory rate 18 /min Ernesto Dickens MD Work Phone: [facility] [place] 04-19-2024 05:47-0400 Body mass index (BMI) [Ratio] 26.62 kg/m2 Ernesto Dickens MD Work Phone: [facility] [place] 04-19-2024 05:47-0400 Body weight 96.6 kg Ernesto Dickens MD Work Phone: [facility] [place] 04-17-2024 00:02-0400 Body height 190.5 cm Ernesto Dickens MD Work Phone: [employer] [facility] [place] 01-29-2024 15:58-0400 Body height 190.5 cm Carlos [place] MD Work Phone: [facility] [place] 01-29-2024 15:58-0400 Body mass index (BMI) [Ratio] 22.5 kg/m2 Carlos [place] MD Work Phone: [facility] [place] 01-29-2024 15:58-0400 Body weight 81.65 kg Carlos [place] MD Work Phone: [facility] [place] 12-29-2023 14:56-0400 Body height 190.5 cm Carlos [place] MD Work Phone: [facility] [place] 12-29-2023 14:56-0400 Body mass index (BMI) [Ratio] 22.87 kg/m2 Carlos [place] MD Work Phone: [facility] [place] 12-29-2023 14:56-0400 Body weight 83.01 kg Carlos [place] MD Work Phone: [facility] [place] 05-23-2023 12:06-0400 Diastolic blood pressure 80 mm[Hg] Colt Klein DO Work Phone: [facility] [place] 05-23-2023 12:06-0400 Heart rate 80 /min Colt Klein DO Work Phone: [employer] 05-23-2023 12:06-0400 Respiratory rate 18 /min Colt Klein DO Work Phone: [employer] 05-23-2023 12:06-0400 SaO2% (BldA) [Mass fraction] 98 % Colt Klein DO Work Phone: [employer] 05-23-2023 12:06-0400 Systolic blood pressure 110 mm[Hg] Colt Klein DO Work Phone: [employer] [place] 05-23-2023 07:54-0400 Body height 190.5 cm Colt Klein DO Work Phone: [employer] 05-23-2023 07:54-0400 Body mass index (BMI) [Ratio] 22.5 kg/m2 Colt Klein [employer] Work Phone: [facility] [place] 05-23-2023 07:54-0400 Body temperature 97.9 [degF] Colt Klein [employer] Work Phone: [facility] [place] 05-23-2023 07:54-0400 Body weight 81.65 kg Colt Klein [employer] Work Phone: [facility] [place] 10-25-2020 00:47-0500 Body Temperature 97.7 [degF] [place] 10-25-2020 00:47-0500 BP Diastolic 59 mm[Hg] [place], [place] 10-25-2020 00:47-0500 BP Systolic 100 mm[Hg] [place] 10-25-2020 00:47-0500 Pulse (Heart Rate) 80 /min [place] 10-25-2020 00:47-0500 Pulse Oximetry 97 % [place] 10-25-2020 00:47-0500 Respiratory Rate 16 /min [place] 10-24-2020 08:01-0500 BMI (Body Mass Index) 25.68 kg/m2 [place] 10-24-2020 08:01-0500 Body weight 90.72 kg [place] 10-24-2020 08:01-0500 Height 188 cm [place], [place] Encounters Encounter Date Encounter Type Care Provider Facility Start: 05-01-2025 ambulatory Tab MURO Faci lity:[facility] Start: 04-21-2025 End: 04-28-2025 Evaluation and management of inpatient Brad Campos MD Work Phone: [facility] Comment on above: Other acute osteomye litis, other site (HCC) (Primary Dx); Pressure injury of coccygeal region, stage 3 (HCC); Lumbar stenosis with neurogenic claudication; Osteoarthritis, unspecified osteoarthritis type, unspecified site; Other intervertebral disc displacement, lumbar region Start: 04-18-2025 ambulatory Tab MURO Facliliana lity:[facility] Start: 04-16-2025 ambulatory Tab Bowles lity:[facility] Start: 03-24-2025 End: 03-24-2025 Telephone encounter Anmol Herbert MD Work Phone: Urology Start: 03-20-2025 End: 03-20-2025 ambulatory ANMOL HERBERT Facility:[facility] Start: 03-14-2025 End: 03-14-2025 Patient encounter procedure Milad Goodson MD Work Phone: Plastic Surgery Comment on above: Chronic osteomyeliti s (HCC) (Primary Dx); Severe protein-calorie malnutrition (HCC); Ureteral calculi; Complicated UTI (urinary tract infection); Neurogenic bladder; Type 2 diabetes mellitus with hyperglycemia, with long-term current use of insulin (HCC) Start: 03-14-2025 End: 03-14-2025 ambulatory MILAD GOODSON Facility:[facility] Start: 03-07-2025 End: 03-07-2025 Telephone encounter Yoana Sanchez CNP Work Phone: [facility] Comment on above: Other Start: 03-07-2025 End: 03-07-2025 Office outpatient visit 25 minutes Yoana Sanchez CNP Work Phone: [facility] Comment on above: Ureteral stent prese nt (Primary Dx); Kidney stone; Hydronephrosis, unspecified hydronephrosis type Start: 03-07-2025 End: 03-07-2025 ambulatory YOANA ALTAF [facility] Start: 03-01-2025 End: 03-01-[address] Ambrosio Monroy DO Work Phone: [facility] Work Phone: Start: 03-01-2025 End: 03-01-2025 [facility] Start: 03-01-2025 Registered Referred Tab Dupont N[place] [facility] Start: 03-01-2025 End: 03-01-2025 ambulatory Tab MURO Facility:[facility] Start: 02-19-2025 End: 03-08-2025 Telephone encounter Anmol Herbert MD Work Phone: [facility] Comment on above: Hospital F/U Start: 02-16-2025 End: 02-22-2025 Evaluation and management of inpatient HOWARD GAMA Facility:[facility] Start: 02-15-2025 End: 02-15-[address] Ambrosio Monroy DO Work Phone: [facility] Work Phone: Start: 02-15-2025 End: 02-15-2025 Departed Referred Tab Dupont N[place] Delvalle [facility] Start: 02-15-2025 End: 02-15-2025 ambulatory Tab MURO Facility:[facility] Start: 01-31-2025 End: 01-31-2025 Patient encounter procedure Milad Goodson MD Work Phone: Plastic Surgery Comment on above: Chronic osteomyeliti s (HCC) (Primary Dx); Chronic osteomyelitis of sacrum (HCC); Severe protein-calorie malnutrition (HCC); Ureteral calculi; Complicated UTI (urinary tract infection); Pyelonephritis; Neurogenic bladder; Type 2 diabetes mellitus with hyperglycemia, with long-term current use of insulin (HCC); Chronic indwelling Santana catheter Start: 01-31-2025 End: 01-31-2025 ambulatory MILAD GOODSON Facility:[facility] Start: 01-09-2025 End: 01-09-2025 [facility] [place] [facility] Start: 01-09-2025 End: 01-09-2025 ambulatory Tab MURO Facility:[facility] Start: 01-04-2025 ambulatory KRISTINE melissay:[facility] Start: 01-04-2025 End: 01-04-2025 Subsequent hospital visit by physician [facility] (1.5t) Radiology Start: 12-07-2024 End: 12-07-[address] Ambrosio Monroy DO Work Phone: [facility] Work Phone: Start: 12-07-2024 End: 12-07-2024 [place]ed [place]erred [place] [facility] Start: 12-07-2024 Registered Referred Tab Sanchez [place] [facility] Start: 12-07-2024 End: 12-07-2024 ambulatory Tab MURO Facility:[facility] Start: 11-30-2024 End: 11-30-[address] Ambrosio Monroy DO Work Phone: [facility] Work Phone: Start: 11-30-2024 End: 11-30-2024 Departed Referred Tab Weaver [place] [facility] Start: 11-30-2024 Registered Referred Tab Sanchez [place] Ad[place] [facility] Start: 11-29-2024 End: 11-30-[address] Ambrosio Monroy DO Work Phone: [facility] Work Phone: Start: 11-29-2024 End: 11-29-2024 Departed Referred Daisy Costello MD -[place] [employer] Start: 11-29-2024 End: 11-29-2024 ambulatory Daisy MURO Facility:[facility] Start: 11-08-2024 End: 11-08-2024 Office outpatient visit 25 minutes Faisal Simeon DO Work Phone: [facility] [place] [facility] Comment on above: Paraplegia (HCC) (Pr imary Dx); Neurogenic bladder; Gross hematuria; Neuropathic pain; Pressure injury of skin, unspecified injury stage, unspecified location Start: 11-08-2024 End: 11-08-2024 ambulatory FAISLA SIMEON Facility:[facility] Start: 10-25-2024 End: 11-20-2024 Telephone encounter Carlos Gillette MD Work Phone: [facility] Comment on above: Appointment Start: 10-11-2024 End: 01-10-2025 Transcribe Orders Kristine Howell PAINTER [employer] STEEL - DOCUMENT MANAGEMENT TECHNICIAN Work Phone: [facility] Central Scheduling Comment on above: Pressure ulcer of sa cral region, unspecified stage (Primary Dx) Start: 10-10-2024 End: 10-10-2024 Departed Referred Tab SULLIVAN Start: 10-10-2024 End: 10-10-2024 ambulatory Tab Adrianneemmanuel MURO Facility:[facility] Start: 10-03-2024 End: 10-03-2024 Departed Referred Tab Dupont -Neno [place] Start: 10-03-2024 End: 10-03-2024 ambulatory Tab Adriannejoshua MURO Facility:[facility] Start: 09-30-2024 End: 09-30-2024 Office outpatient visit 25 minutes Faisal Simeon DO [facility] Comment on above: Neurogenic bladder ( Primary Dx); Paraplegia (HCC); Urinary retention; Gross hematuria Start: 09-30-2024 ambulatory FAISAL SIMEON Facility:[facility] Start: 09-29-2024 End: 09-29-2024 Departed Referred Tab SULLIVAN Start: 09-29-2024 End: 09-29-2024 ambulatory Tab Adriannejoshua JINA Facility:[facility] Start: 09-20-2024 End: 09-20-2024 Departed Referred Tab SULLIVAN Start: 09-20-2024 End: 09-20-2024 ambulatory Tab Adrianneemmanuel MURO Facility:[facility] Start: 08-22-2024 End: 08-22-2024 Office outpatient new 45 minutes Giuliano Shultz DO Work Phone: [facility] Rheumatology Comment on above: Osteoporosis, unspec ified osteoporosis type, unspecified pathological fracture presence (Primary Dx) Start: 08-22-2024 End: 08-22-2024 ambulatory UNKNOWN PROVIDER Facility:[facility] Start: 08-12-2024 End: 08-12-2024 Telephone encounter Angelica Anne RN [facility] Rheumatology (Arthritis) Start: 08-01-2024 End: 08-01-2024 Office outpatient visit 25 minutes Sci Fellow Ivana [facility] PM&R Comment on above: Paraplegia (HCC) (Pr imary Dx); Neuropathic pain; Neurogenic bowel; Reflex neurogenic bladder Start: 08-01-2024 End: 08-01-2024 ambulatory UNKNOWN PROVIDER Facility:[facility] Start: 07-27-2024 End: 07-27-2024 Telephone encounter Angelica Anne RN [facility] Rheumatology (Arthritis) Start: 07-13-2024 End: 07-13-2024 Telephone encounter Angelica Anne RN [facility] Rheumatology (Arthritis) Start: 07-10-2024 End: 07-10-2024 ambulatory UNKNOWN PROVIDER Facility:[facility] Start: 07-10-2024 End: 07-10-2024 Subsequent hospital visit by physician Ip/Op Mri 2 [facility] Radiology Comment on above: Sacral insufficiency fracture, initial encounter Start: 07-04-2024 End: 07-04-2024 ambulatory Tab MURO Facility:[facility] Start: 07-01-2024 End: 07-01-2024 ambulatory OTIS MEJIA Facility:[facility] Start: 06-15-2024 End: 06-15-2024 Telephone encounter Carlos Gillette MD Work Phone: [facility] Comment on above: Reschedule Start: 06-15-2024 End: 06-15-2024 ambulatory Tab Adrianneemmanuel MURO Facility:[facility] Start: 06-14-2024 End: 06-14-2024 Telephone encounter Vladimir Asher [facility] Start: 06-13-2024 End: 06-13-2024 Office outpatient new 60 minutes Sci Fellow Ivana [facility] PM&R Comment on above: Paraplegia (HCC) (Pr imary Dx); Reflex neurogenic bladder; Neuropathic pain; Neurogenic bowel Start: 06-13-2024 End: 06-13-2024 Office outpatient visit 25 minutes Sci Fellow [facility] PM&R Comment on above: Paraplegia (HCC) (Pr imary Dx); Reflex neurogenic bladder; Neuropathic pain; Neurogenic bowel; Urinary retention Start: 06-13-2024 End: 06-16-2024 ambulatory UNKNOWN PROVIDER Facility:[facility] Start: 05-30-2024 ambulatory Tba MURO Faci lity:[facility] Start: 05-17-2024 End: 05-22-2024 Evaluation and management of inpatient Rodney Guerrero DO Work Phone: [facility] Comment on above: Positive blood cultu res (Primary Dx); Lumbar stenosis with neurogenic claudication; Osteoarthritis, unspecified osteoarthritis type, unspecified site; Other intervertebral disc displacement, lumbar region; Pressure injury of coccygeal region, stage 3 (HCC) Start: 05-16-2024 End: 05-16-2024 ambulatory Tab MURO Facility:[facility] Start: 05-13-2024 End: 05-13-2024 Telephone encounter Sarita Benoit LPN [facility] Infectious Disease Comment on above: Labs Only Start: 05-11-2024 End: 05-15-2024 Office outpatient new 45 minutes Otis Mejia MD Work Phone: [facility] Orthopedic Spine Comment on above: Sacral insufficiency fracture, initial encounter (Primary Dx); Failed back surgical syndrome Start: 05-11-2024 End: 05-11-2024 Subsequent hospital visit by physician Jennifer Op Xray 2 [facility] Radiology Comment on above: Sacral insufficiency fracture, initial encounter Start: 05-11-2024 End: 05-15-2024 ambulatory UNKNOWN PROVIDER Facility:[facility] Start: 05-10-2024 End: 05-10-2024 Telephone encounter Delaney Nunn RN [facility] Line Comment on above: Update Start: 05-09-2024 End: 05-09-2024 ambulatory Tab MURO Facility:[facility] Start: 05-05-2024 End: 05-06-2024 Subsequent hospital visit by physician Joan Patel MD Work Phone: [facility] Surgical [facility] H5 Comment on above: Bladder calculus (Pr imary Dx); Bilateral ureteral calculi; Calculus of ureter Start: 05-05-2024 End: 05-06-2024 Unknown JOAN PATEL [facility] Start: 05-04-2024 End: 05-06-2024 Telephone encounter Carlos Gillette MD Work Phone: [facility] [employer] [facility] Pain Management Comment on above: Reschedule Start: 05-02-2024 ambulatory Tab Dupont OLS Faci lity:[facility] Start: 04-15-2024 End: 04-15-2024 ambulatory Joe Hammer PAINTER [employer] - DOCUMENT MANAGEMENT TECHNICIAN Work Phone: [facility] Urology Comment on above: Bilateral ureteral c alculi (Primary Dx); Bladder calculus Start: 04-15-2024 End: 04-25-2024 Telephone encounter Joe Hammer PAINTER [employer] - DOCUMENT MANAGEMENT TECHNICIAN Work Phone: [facility] Urology Comment on above: Surgery Scheduling Start: 04-14-2024 End: 04-20-2024 Evaluation and management of inpatient Ernesto Dickens MD Work Phone: [facility] Cardiac Progressive Care Unit PCU 2E Start: 04-06-2024 End: 04-28-2024 Telephone encounter Vaishali Placeway DO Work Phone: [facility] PM[facility]R Start: 04-05-2024 End: 04-05-2024 ambulatory UNKNOWN PROVIDER Facility:[facility] Start: 04-05-2024 End: 04-05-2024 Subsequent hospital visit by physician Ip/Op Mri 1 [facility] Radiology Comment on above: Paraplegia (HCC); History of lumbar fusion Start: 02-10-2024 End: 02-11-2024 ambulatory UNKNOWN PROVIDER Facility:[facility] Start: 02-10-2024 End: 02-26-2024 Office outpatient new 45 minutes Vaishali Placeway DO Work Phone: [facility] PM&R Comment on above: Paraplegia (HCC) (Pr imary Dx); History of lumbar fusion Start: 02-10-2024 ambulatory UNKNOWN PROVIDER Facili ty:[facility] Start: 01-29-2024 End: 01-29-2024 Office outpatient visit 25 minutes Carlos Gillette MD Work Phone: [facility] Pain Management Comment on above: Injury of lumbar spi nal cord, sequela (HCC) (Primary Dx); Neuropathic pain Start: 01-15-2024 Registered Referred [facility] Start: 01-07-2024 End: 01-07-2024 ambulatory [facility] Work Phone: Start: 01-07-2024 End: 01-07-2024 Departed Referred [facility] Start: 01-07-2024 Registered Referred [facility] Start: 01-04-2024 End: 01-04-2024 ambulatory [facility] Work Phone: Start: 01-04-2024 End: 01-04-2024 Departed Referred [facility] Start: 01-04-2024 Registered Referred [facility] Start: 12-31-2023 End: 12-31-2023 ambulatory [facility] Work Phone: Start: 12-31-2023 End: 12-31-2023 Departed Referred [facility] Start: 12-29-2023 End: 12-29-2023 Office outpatient new 45 minutes Carlos Gillette MD Work Phone: [facility] [employer] Pain Management Comment on above: Spinal cord injury, lumbar, without spinal bone injury, sequela (HCC) (Primary Dx); Neuropathic pain Start: 12-04-2023 End: 12-04-2023 ambulatory [facility] Work Phone: Start: 12-04-2023 End: 12-04-2023 Departed Referred [facility] Start: 10-25-2023 End: 10-25-2023 Departed Referred [facility] Start: 09-04-2023 Telephone encounter Carlos israel MD Work Phone: [facility] Pain Management Comment on above: Referral Start: 08-19-2023 Telephone encounter Carlos israel MD Work Phone: [facility] Pain Management Comment on above: Referral (Confirm Re ceipt of Referral for SPEECH LANGUAGE PATHOLOGIST Appt Scheduling) Start: 08-10-2023 Registered Referred [facility] Start: 08-07-2023 Registered Referred [facility] Start: 08-06-2023 Telephone encounter Carlos israel MD Work Phone: [facility] Pain Management Comment on above: new patient appointm ent Start: 07-31-2023 End: 07-31-2023 ambulatory [facility] Work Phone: Start: 07-31-2023 End: 07-31-2023 Departed Referred [facility] Start: 06-29-2023 End: 06-29-2023 Departed Referred [facility] Start: 06-01-2023 End: 06-01-2023 ambulatory [facility] Work Phone: Start: 06-01-2023 End: 06-01-2023 Departed Referred [facility] Start: 05-23-2023 End: 05-23-2023 Emergency department patient visit Colt Klein DO Work Phone: [facility] ED Comment on above: Urinary tract infect ion associated with indwelling urethral catheter, initial encounter (HCC) (Primary Dx) Start: 05-04-2023 End: 05-04-2023 ambulatory [facility] Work Phone: Start: 05-04-2023 End: 05-04-2023 Departed Referred [facility] Start: 05-04-2023 Registered Referred [facility] Start: 03-25-2023 End: 03-25-2023 ambulatory [facility] Work Phone: Start: 03-25-2023 End: 03-25-2023 Departed Referred [facility] Start: 04-21-2022 ambulatory Cindi Cuellar PA-C Work Phone: [facility] Start: 02-14-2022 End: 02-14-2022 Subsequent hospital visit by physician Mri 2 [facility] (I-Stat/1.5t) [facility] Comment on above: abscess Start: 06-11-2021 AUDIT Byron Whitlock DO Work Phone: [facility] Work Phone: Start: 10-24-2020 End: 10-25-2020 Patient encounter procedure OPAL VIGIL [facility] Start: 10-24-2020 End: 10-27-2020 Patient encounter procedure AMBROSIO MONROY [facility] Start: 10-24-2020 End: 10-25-2020 Subsequent hospital visit by physician Opal Vigil Work Phone: [facility] Comment on above: Muscle spasm (Primar y Dx); Diabetes mellitus without complication (HCC) Start: 06-14-2018 Patient encounter Meliton Brandt [facility] Start: 06-11-2018 End: 06-12-2018 Patient encounter JUAN MIGUEL ANN Facility:[id number] Start: 04-29-2018 Patient encounter Ambrosio Monroy [facility] Start: 08-05-2017 End: 08-06-2017 Ambulatory OPAL VIGIL Facility:[facility] Start: 08-03-2017 Ambulatory GALE A YARITZA Facility:[facility] Start: 05-27-2017 End: 05-28-2017 Ambulatory ELLIOT TORREZ Facility:[facility] Procedures Date Procedure Procedure Detail Performing Clinician Start: 04-28-2025 Glucose quantitative blood xcpt reagent strip Berhane Moreno MD Work Phone: Start: 04-28-2025 Glucose quantitative blood xcpt reagent strip Berhane Moreno MD Work Phone: Start: 04-28-2025 Glucose quantitative blood xcpt reagent strip Berhane Moreno MD Work Phone: Start: 04-27-2025 Glucose quantitative blood xcpt reagent strip Berhane Moreno MD Work Phone: Start: 04-27-2025 Glucose quantitative blood xcpt reagent strip Berhane Moreno MD Work Phone: Start: 04-27-2025 Glucose quantitative blood xcpt reagent strip Berhane Moreno MD Work Phone: Start: 04-27-2025 Glucose quantitative blood xcpt reagent strip Berhane Moreno MD Work Phone: Start: 04-27-2025 Basic metabolic panel calcium total Mary Alice Gonzalezson PAINTER [employer]EL - DOCUMENT MANAGEMENT TECHNICIAN Work Phone: Start: 04-26-2025 Glucose quantitative blood xcpt reagent strip Berhane Moreno MD Work Phone: Start: 04-26-2025 Glucose quantitative blood xcpt reagent strip Berhane Moreno MD Work Phone: Start: 04-26-2025 End: 04-26-2025 Glucose quantitative blood xcpt reagent strip Berhane Moreno MD Work Phone: Start: 04-26-2025 Basic metabolic panel calcium total Berhane Moreno MD Work Phone: Start: 04-25-2025 Glucose quantitative blood xcpt reagent strip Berhane Moreno MD Work Phone: Start: 04-25-2025 Glucose quantitative blood xcpt reagent strip Berhane Moreno MD Work Phone: Start: 04-25-2025 Glucose quantitative blood xcpt reagent strip Berhane Moreno MD Work Phone: Start: 04-25-2025 Glucose quantitative blood xcpt reagent strip Berhane Moreno MD Work Phone: Start: 04-25-2025 Basic metabolic panel calcium total Kerwin Radhames DO Work Phone: Start: 04-24-2025 Glucose quantitative blood xcpt reagent strip Kerwin Oglethorpe DO Work Phone: Start: 04-24-2025 Glucose quantitative blood xcpt reagent strip Kerwin Radhames DO Work Phone: Start: 04-24-2025 Glucose quantitative blood xcpt reagent strip Kerwin Radhames DO Work Phone: Start: 04-24-2025 End: 04-24-2025 Glucose quantitative blood xcpt reagent strip Kerwin Oglethorpe DO Work Phone: Start: 04-24-2025 Decalcification procedure Kaela sevilla MD Work Phone: Start: 04-24-2025 End: 04-24-2025 Culture bacterial any source anaerobic iso&id Kaela Durand MD Work Phone: Start: 04-24-2025 End: 04-24-2025 Debridement muscle & fascia 20 sq cm/< Kaela Durand MD Work Phone: Start: 04-24-2025 Basic metabolic panel calcium total Krewin Radhames DO Work Phone: Start: 04-24-2025 Drug screen quantitative vancomycin Alberto Boogie NP Work Phone: Start: 04-23-2025 Glucose quantitative blood xcpt reagent strip Kerwin Oglethorpe DO Work Phone: Start: 04-23-2025 Glucose quantitative blood xcpt reagent strip Kerwin Oglethorpe DO Work Phone: Start: 04-23-2025 Glucose quantitative blood xcpt reagent strip Kerwin Oglethorpe DO Work Phone: Start: 04-23-2025 Glucose quantitative blood xcpt reagent strip Kerwin Radhames DO Work Phone: Start: 04-23-2025 Basic metabolic panel calcium total Kerwin Radhames DO Work Phone: Start: 04-22-2025 Glucose quantitative blood xcpt reagent strip Kerwin Radhames DO Work Phone: Start: 04-22-2025 Glucose quantitative blood xcpt reagent strip Kerwin Oglethorpe DO Work Phone: Start: 04-22-2025 Glucose quantitative blood xcpt reagent strip Kerwin Radhames DO Work Phone: Start: 04-22-2025 Glucose quantitative blood xcpt reagent strip Kerwin Radhames DO Work Phone: Start: 04-22-2025 Drug screen quantitative vancomycin Alberto Boogie SPEECH LANGUAGE PATHOLOGIST Work Phone: Start: 04-22-2025 Ct pelvis w/contrast material Chele León MD Work Phone: Start: 04-21-2025 End: 04-21-2025 Bacteria identified in Blood by Culture Chele León MD Work Phone: Start: 04-21-2025 Comprehensive metabolic panel Chele León MD Work Phone: Start: 04-21-2025 AEROBIC AND ANAEROBIC CULTURE WITH STAIN Chele León MD Work Phone: Start: 04-21-2025 Culture bacterial any source anaerobic iso&id Chele León MD Work Phone: Start: 02-15-[address] Ambrosio Monroy DO Work Phone: Start: 02-15-2025 Urnls dip stick/tablet reagent auto microscopy Dr. Ambrosio Monroy DO Work Phone: Start: 11-29-[address] Ambrosio Monroy DO Work Phone: Start: 11-29-2024 Urnls dip stick/tablet reagent auto microscopy Dr. Ambrosio Monroy DO Work Phone: Start: 09-30-2024 End: 09-30-2024 Bladder pressure measurement during filling Faisal Simeon DO Work Phone: Start: 09-30-2024 Insj temp ndwellg bladder catheter simple Faisal Blanco DO Work Phone: Start: 07-10-2024 End: 07-10-2024 Mri spinal canal cervical w/o contrast matrl Otis Mejia MD Work Phone: Start: 05-22-2024 Glucose quantitative blood xcpt reagent strip Parvin Mahajan MD Work Phone: Start: 05-22-2024 Glucose quantitative blood xcpt reagent strip Parvin Mahajan MD Work Phone: Start: 05-22-2024 Glucose quantitative blood xcpt reagent strip Parvin Mahajan MD Work Phone: Start: 05-22-2024 Blood count complete automated Parvin Mahajan MD Work Phone: Start: 05-22-2024 Comprehensive metabolic panel Alonso Mahajan MD Work Phone: Start: 05-21-2024 Glucose quantitative blood xcpt reagent strip Parvin Mahajan MD Work Phone: Start: 05-21-2024 Glucose quantitative blood xcpt reagent strip Parvin Mahajan MD Work Phone: Start: 05-21-2024 Glucose quantitative blood xcpt reagent strip Parvin Mahajan MD Work Phone: Start: 05-21-2024 Glucose quantitative blood xcpt reagent strip Parvin Mahajan MD Work Phone: Start: 05-21-2024 Comprehensive metabolic panel Alonso Mahajan MD Work Phone: Start: 05-20-2024 Glucose quantitative blood xcpt reagent strip Parvin Mahajan MD Work Phone: Start: 05-20-2024 Glucose quantitative blood xcpt reagent strip Parvin Mahajan MD Work Phone: Start: 05-20-2024 Glucose quantitative blood xcpt reagent strip Parvin Mahajan MD Work Phone: Start: 05-20-2024 Glucose quantitative blood xcpt reagent strip Parvin Mahajan MD Work Phone: Start: 05-20-2024 Comprehensive metabolic panel Alonso Mahajan MD Work Phone: Start: 05-19-2024 Glucose quantitative blood xcpt reagent strip Parvin Mahajan MD Work Phone: Start: 05-19-2024 Glucose quantitative blood xcpt reagent strip Parvin Mahajan MD Work Phone: Start: 05-19-2024 Glucose quantitative blood xcpt reagent strip Parvin Mahajan MD Work Phone: Start: 05-19-2024 Glucose quantitative blood xcpt reagent strip Parvin Mahajan MD Work Phone: Start: 05-19-2024 Comprehensive metabolic panel Alonso Mahajan MD Work Phone: Start: 05-18-2024 Glucose quantitative blood xcpt reagent strip Parvin Mahajan MD Work Phone: Start: 05-18-2024 Basic metabolic panel calcium total Deondremha Khanh Concepcion MD Work Phone: Start: 05-18-2024 Culture bacterial quanttative colony count urine Terri Simeon PA-C Work Phone: Start: 05-18-2024 Urinalysis complete panel - Urine Terri Simeon PA-C Work Phone: Start: 05-17-2024 Culture bacterial quanttative colony count urine Terri Simeon PA-C Work Phone: Start: 05-17-2024 Urinalysis complete panel - Urine Terri Franco Blanco PA-C Work Phone: Start: 05-17-2024 End: 05-17-2024 Bacteria identified in Blood by Culture Terri Simeon PA-C Work Phone: Start: 05-17-2024 Basic metabolic panel calcium total Terri Simeon PA-C Work Phone: Start: 05-11-2024 Radex entir thrc lmbr crv sac spi w/skull 2/3 vw Otis Mejia MD Work Phone: Start: 05-11-2024 Radex sacrum & coccyx minimum 2 views Berna Johnson PA-C Work Phone: Start: 05-06-2024 Glucose quantitative blood xcpt reagent strip Joan Patel MD Work Phone: Start: 05-06-2024 End: 05-06-2024 Basic metabolic panel calcium total Kaitlin Granados MD Work Phone: Start: 05-06-2024 Glucose quantitative blood xcpt reagent strip Joan Patel MD Work Phone: Start: 05-05-2024 Glucose quantitative blood xcpt reagent strip Joan Patel MD Work Phone: Start: 05-05-2024 FL GUIDANCE OR USE ONLY - NON-RESULTABLE Joan Patel MD Work Phone: Start: 05-05-2024 Cul bact xcpt urine blood/stool aerobic isol Joan Patel MD Work Phone: Start: 05-05-2024 End: 05-05-2024 Cysto w/insert ureteral stent Joan Patel MD Work Phone: Start: 05-05-2024 End: 05-05-2024 Cysto w/ureteroscopy w/lithotripsy Joan Patel MD Work Phone: Start: 05-05-2024 End: 05-05-2024 Cystourethroscopy Joan Patel MD Work Phone: Start: 05-05-2024 End: 05-05-2024 Litholapaxy comp/lg > 2.5 cm Joan Patel MD Work Phone: Start: 05-05-2024 Glucose quantitative blood xcpt reagent strip Joan Patel MD Work Phone: Start: 05-05-2024 Glucose quantitative blood xcpt reagent strip Joan Patel MD Work Phone: Start: 04-20-2024 Glucose quantitative blood xcpt reagent strip Otis Mckenzie DO Work Phone: Start: 04-20-2024 SARS-CoV-2 (COVID-19) Ag [Presence] in Respiratory specimen by Rapid immunoassay Otis Mckenzie DO Work Phone: Start: 04-20-2024 Glucose quantitative blood xcpt reagent strip Otis Mckenzie DO Work Phone: Start: 04-20-2024 IR CVC PICC PLACEMENT Otis Mckenzie DO Work Phone: Start: 04-20-2024 Glucose quantitative blood xcpt reagent strip Otis Mckenzie DO Work Phone: Start: 04-20-2024 Comprehensive metabolic panel Pedro Luis galeana MD Work Phone: Start: 04-20-2024 Manual Differential panel - Blood Pedro Luis Matos MD Work Phone: Start: 04-19-2024 Glucose quantitative blood xcpt reagent strip Otis Mckenzie DO Work Phone: Start: 04-19-2024 Glucose quantitative blood xcpt reagent strip Otis Mckenzie DO Work Phone: Start: 04-19-2024 Ecg routine ecg w/least 12 lds trcg only w/o i&r Otis Mckenzie DO Work Phone: Start: 04-19-2024 Glucose quantitative blood xcpt reagent strip Otis Mckenzie DO Work Phone: Start: 04-19-2024 Glucose quantitative blood xcpt reagent strip Harmeet Rodriguez MD Work Phone: Start: 04-19-2024 Comprehensive metabolic panel Pedro Luis galeana MD Work Phone: Start: 04-19-2024 Manual Differential panel - Blood Pedro Luis Matos MD Work Phone: Start: 04-18-2024 Glucose quantitative blood xcpt reagent strip Harmeet Rodriguez MD Work Phone: Start: 04-18-2024 Glucose quantitative blood xcpt reagent strip Harmeet Rodriguez MD Work Phone: Start: 04-18-2024 Glucose quantitative blood xcpt reagent strip Harmeet Rodriguez MD Work Phone: Start: 04-18-2024 End: 04-18-2024 Comprehensive metabolic panel Pedro Luis galeana MD Work Phone: Start: 04-18-2024 Manual differential performed [Presence] in Blood Pedr oLuis Matos MD Work Phone: Start: 04-17-2024 Glucose quantitative blood xcpt reagent strip Harmeet Rodriguez MD Work Phone: Start: 04-17-2024 Glucose quantitative blood xcpt reagent strip Harmeet Rodriguez MD Work Phone: Start: 04-17-2024 Glucose quantitative blood xcpt reagent strip Harmeet Rodriguez MD Work Phone: Start: 04-17-2024 Glucose quantitative blood xcpt reagent strip Harmeet Rodriguez MD Work Phone: Start: 04-17-2024 Comprehensive metabolic panel Orquidea Marti MD Work Phone: Start: 04-16-2024 Glucose quantitative blood xcpt reagent strip Keaton Marcos MD Work Phone: Start: 04-16-2024 Glucose quantitative blood xcpt reagent strip Keaton Marcos MD Work Phone: Start: 04-16-2024 End: 04-16-2024 Prothrombin time Pedro Luis Matos MD Work Phone: Start: 04-16-2024 Glucose quantitative blood xcpt reagent strip Lauryn Hooker MD Work Phone: Start: 04-16-2024 Bacteria identified in Blood by Culture Kailash Moyer MD Work Phone: Start: 04-16-2024 Comprehensive metabolic panel Orquidea Marti MD Work Phone: Start: 04-16-2024 Drug screen quantitative vancomycin Orquidea Marti MD Work Phone: Start: 04-16-2024 Manual Differential panel - Blood Brad Mujica [employer] - DOCUMENT MANAGEMENT TECHNICIAN Work Phone: Start: 04-15-2024 Glucose quantitative blood xcpt reagent strip Lauryn Hooker MD Work Phone: Start: 04-15-2024 Glucose quantitative blood xcpt reagent strip Lauryn Hooker MD Work Phone: Start: 04-15-2024 Iadna s aureus methicillin resist amp probe tq Kailash Moyer MD Work Phone: Start: 04-15-2024 Glucose quantitative blood xcpt reagent strip Lauryn Hooker MD Work Phone: Start: 04-15-2024 Assay of lactate Orquidea Marti MD Work Phone: Start: 04-15-2024 Glucose quantitative blood xcpt reagent strip Lauryn Hooker MD Work Phone: Start: 04-15-2024 Comprehensive metabolic panel Orquidea Marti MD Work Phone: Start: 04-15-2024 Manual Differential panel - Blood Bradsrinath Mujica [employer] - DOCUMENT MANAGEMENT TECHNICIAN Work Phone: Start: 04-15-2024 Drug screen quantitative vancomycin Orquidea Marti MD Work Phone: Start: 04-15-2024 Culture bacterial quanttative colony count urine Brad Valentin Guanako [employer] - DOCUMENT MANAGEMENT TECHNICIAN Work Phone: Start: 04-14-2024 End: 04-14-2024 Blood count complete auto&auto difrntl wbc Orquidea Marti MD Work Phone: Start: 04-14-2024 Manual Differential panel - Blood Orquidea Marti MD Work Phone: Start: 04-14-2024 X-ray urinary tract exam with contrast material Joan Patel MD Work Phone: Start: 04-14-2024 End: 04-14-2024 Glucose quantitative blood xcpt reagent strip Orquidea Marti MD Work Phone: Start: 04-14-2024 End: 04-14-2024 Cysto w/insert ureteral stent Joan Patel MD Work Phone: Start: 04-14-2024 ABO and Rh group [Type] in Blood by Confirmatory method Ernesto Dickens MD Work Phone: Start: 04-14-2024 Blood typing serologic rh (d) Ernesto Dickens MD Work Phone: Start: 04-14-2024 End: 04-14-2024 Assay of lipase Ernesto Dickens MD Work Phone: Start: 04-14-2024 Ct abdomen & pelvis w/o contrast material Ernesto Dickens MD Work Phone: Start: 04-14-2024 Blood gases any combination ph [id number] [id number] co2 hco3 Ernesto Dickens MD Work Phone: Start: 04-14-2024 Radiologic exam chest single view Ernesto Dickens MD Work Phone: Start: 04-14-2024 Bacteria identified in Blood by Culture Ernesto Dickens MD Work Phone: Start: 04-14-2024 HC CUL TYP ID BLD PTHGN 6+ TRGT Ernesto Dickens MD Work Phone: Start: 04-14-2024 Ecg routine ecg w/least 12 lds trcg only w/o i&r Ernesto Dickens MD Work Phone: Start: 04-14-2024 Comprehensive metabolic panel Ernesto Dickens MD Work Phone: Start: 04-14-2024 Manual Differential panel - Blood Ernesto Dickens MD Work Phone: Start: 04-05-2024 Mri spinal canal lumbar w/o & w/contr matrl Vaishali Placeway DO Work Phone: Start: 12-04-2023 Urine culture Start: 10-25-2023 Urine culture Start: 07-31-2023 Urine culture Start: 05-23-2023 Urinalysis complete panel - Urine Colt Klein DO Work Phone: Start: 05-23-2023 Urnls dip stick/tablet reagent auto microscopy Colt Klein DO Work Phone: Start: 01-23-2022 Lipid 1996 panel - Serum or Plasma Joe Hammer [employer] - DOCUMENT MANAGEMENT TECHNICIAN Work Phone: Start: 09-06-2021 Colonoscopy Faisal Simeon DO Work Phone: Start: 10-25-2020 Gluc bld gluc mntr dev cleared fda spec home use Unknown Provider Result Start: 10-25-2020 Gluc bld gluc mntr dev cleared fda spec home use Unknown Provider Result Start: 10-25-2020 Basic metabolic panel calcium total Orlando D Sedar Work Phone: Start: 10-25-2020 Blood count complete auto&auto difrntl wbc Orlando D Sedar Work Phone: Start: 10-25-2020 Hemoglobin glycosylated a1c Orlando D Sedar Work Phone: Start: 10-24-2020 Gluc bld gluc mntr dev cleared fda spec home use Unknown Provider Result Start: 10-24-2020 Gluc bld gluc mntr dev cleared fda spec home use Unknown Provider Result Start: 10-24-2020 Gluc bld gluc mntr dev cleared fda spec home use Unknown Provider Result Plan of Treatment Date Care Activity Detail Author Start: 2036 RSV vaccine (adult) (1 - 1-dose 75+ series) RSV vaccine (adult) (1 - 1-dose 75+ series) [facility] Start: 09-06-2031 Screening for malignant neoplasm of colon [facility] Start: 01-23-2027 Lipid panel [facility]olesterol [facility] Start: 04-27-2026 Diabetes: Estimated Glomerular Filtration Rate for Kidney Health Diabetes: Estimated Glomerular Filtration Rate for Kidney Health [facility] Start: 04-21-2026 Hemoglobin A1c measurement Diabetes: Hemoglobin A1C [facility] Start: 02-16-2026 Screening for malignant neoplasm of lung Lung Cancer Screening [facility] Start: 06-05-2025 Influenza vaccination [facility] Start: 06-02-2025 End: 06-02-2025 Patient encounter procedure 06/02/2025 11:00 AM EDT Office Visit [facility] [place] [address] [place] [address] Savage Alvarez MD [address] [place] [address] [facility] [place] Start: 05-22-2025 Diabetes: Estimated Glomerular Filtration Rate for Kidney Health Diabetes: Estimated Glomerular Filtration Rate for Kidney Health [facility] Start: 05-06-2025 Diabetes: Estimated Glomerular Filtration Rate for Kidney Health Diabetes: Estimated Glomerular Filtration Rate for Kidney Health [facility] Start: 04-27-2025 Diabetes: Estimated Glomerular Filtration Rate for Kidney Health Diabetes: Estimated Glomerular Filtration Rate for Kidney Health [facility] Start: 04-20-2025 Diabetes: Estimated Glomerular Filtration Rate for Kidney Health Diabetes: Estimated Glomerular Filtration Rate for Kidney Health [facility] Start: 04-20-2025 [facility] Start: 04-15-2025 Diabetes: Estimated Glomerular Filtration Rate for Kidney Health Diabetes: Estimated Glomerular Filtration Rate for Kidney Health [facility] Start: 04-15-2025 Hemoglobin A1c measurement [facility] Start: 04-04-2025 Hemoglobin A1c measurement Hemoglobin A1C [facility] Start: 03-20-2025 End: 03-20-2025 Admission to same day surgery center 03/20/2025 10:00 AM EDT - 03/20/2025 11:30 AM EDT Surgery [facility] [address] [place] [address] Anmol Herbert MD [address] [place] [address] CYSTOSCOPY, RETROPYELOGRAM [facility] Comment on above: CYSTOSCOPY, RETROPYELOGRAM Start: 03-20-2025 End: 03-20-2025 Cysto bladder w/ureteral catheterization [facility] Start: 03-20-2025 End: 03-20-2025 Cysto w/insert ureteral stent [facility] Start: 03-20-2025 End: 03-20-2025 Cysto w/simple removal stone & stent [facility] Start: 03-20-2025 Subsequent hospital visit by physician 03/20/2025 10:00 AM EDT Hospital Encounter [facility] [address] [place] [address] Anmol Herbert MD [address] [place] [address] Other hydronephrosis [N13.39] [facility] Comment on above: Other hydronephrosis [N13.39] Start: 03-14-2025 End: 03-14-2025 Patient encounter procedure 03/14/2025 1:50 PM EDT Office Visit Plastic Surgery [address] [place] [address] Milad Goodson MD [address] [address] [place] sacrum & left ischium [facility]astic Surgery Comment on above: [place] sacrum & left ischium Start: 01-31-2025 End: 05-02-2025 C reactive protein [Mass/volume] in Serum or Plasma C-REACTIVE PROTEIN Lab Routine Chronic osteomyelitis (HCC) Expected: 01/31/2025, Expires: 05/02/2025 [facility] Comment on above: Expected: 01/31/2025, Expires: Start: 01-31-2025 End: 05-02-2025 Erythrocyte sedimentation rate SEDIMENTATION RATE, WESTERGREN Lab Routine Chronic osteomyelitis (HCC) Expected: 01/31/2025, Expires: 05/02/2025 [facility] Work Phone: Comment on above: Expected: 01/31/2025, Expires: Start: 01-31-2025 End: 05-02-2025 Prealbumin [Mass/volume] in Serum or Plasma PREALBUMIN Lab Routine Chronic osteomyelitis (HCC) Expected: 01/31/2025, Expires: 05/02/2025 [facility] Comment on above: Expected: 01/31/2025, Expires: Start: 11-08-2024 End: 11-08-2024 Telemedicine consultation with patient 11/08/2024 1:30 PM EST Telemedicine [facility] [address] [place] [address] Faisal Simeon DO [address] [place] [address] [facility] Start: 11-05-2024 Welcome to Medicare Visit (G0402) Welcome to Medicare Visit (G0402) [facility] Start: 10-16-2024 Hemoglobin A1c measurement HbA1C [facility] Start: 10-11-2024 End: 10-11-2025 MR Pelvis WO and W contrast IV MR pelvis w and wo contrast Imaging Routine Pressure ulcer of sacral region, unspecified stage Expected: 10/11/2024, Expires: 10/11/2025 [email or web address] Work Phone: Comment on above: Expected: 10/11/2024, Expires: Start: 10-05-2024 Medicare Advantage Annual Wellness Visit Medicare Advantage Annual Wellness [facility] Start: 09-30-2024 End: 09-30-2025 CT Abdomen and Pelvis WO contrast CT RENAL STONE Imaging Routine Gross hematuria Expected: 09/30/2024, Expires: 09/30/2025 [employer] Work Phone: Comment on above: Expected: 09/30/2024, Expires: Start: 09-30-2024 End: 09-30-2024 Patient encounter procedure 09/30/2024 1:00 PM EST Procedure Visit [facility] [address] [place] [address] Faisal Simeon DO [address] [place] [address] [facility] Start: 09-09-2024 End: 09-09-2024 Patient encounter procedure 09/09/2024 2:00 PM EST Procedure Visit [facility] [address] [place] [address] Faisal Simeon DO [address] [place] [address] [facility] Start: 08-22-2024 End: 08-22-2024 Telemedicine consultation with patient 08/22/2024 8:20 AM EST Telemedicine [facility] Rheumatology [address] [facility] [address] [place] [address] Giuliano Shultz DO [address] [place] [address] [facility] Start: 2024 End: 2024 Patient encounter procedure 2024 1:30 PM EDT Office Visit [facility] [address] [place] [phone] [place] [address] [place] [phone] [facility] Start: 08-01-2024 End: 08-01-2024 Telemedicine consultation with patient 08/01/2024 9:00 AM EDT [facility] [address] [place] [address] [facility] Start: 07-10-2024 End: 07-10-2024 Patient encounter procedure [facility] Start: 07-05-2024 Influenza vaccination Influenza Vaccine (#1) [facility] Start: 07-01-2024 End: 07-01-2024 Professional / ancillary services management 07/01/2024 11:00 AM EDT Ancillary Procedure [facility] [address] [place] [address] [facility] Start: 06-14-2024 End: 06-14-2024 Patient encounter procedure 06/14/2024 8:30 AM EDT Office Visit [facility] [address] [place] [phone] [place] [address] [place] [phone] [facility] Start: 06-13-2024 End: 06-13-2024 Patient encounter procedure 06/13/2024 11:00 AM EDT [facility] [address] [place] [address] [facility] Start: 06-13-2024 End: 06-13-2024 Professional / ancillary services management 06/13/2024 9:00 AM EDT Ancillary Procedure [facility] [address] [place] [address] [facility] Start: 06-05-2024 COVID-19 Vaccine ( season) COVID-19 Vaccine () [facility] Start: 06-05-2024 COVID-19 Vaccine ( season) COVID-19 Vaccine () [facility] Start: 06-05-2024 Influenza vaccination [facility] Start: 06-05-2024 [facility] Start: 05-11-2024 End: 05-11-2025 DXA Skeletal system Views for bone density BD BONE DENSITY SURVEY Imaging Routine Sacral insufficiency fracture, initial encounter Expected: 05/11/2024, Expires: 05/11/2025 [employer] Work Phone: Comment on above: Expected: 05/11/2024, Expires: Start: 05-11-2024 End: 05-11-2025 MR Cervical spine WO contrast MR C-SPINE W/O Imaging Routine Sacral insufficiency fracture, initial encounter Expected: 05/11/2024, Expires: 05/11/2025 [facility] Comment on above: Expected: 05/11/2024, Expires: Start: 05-11-2024 End: 05-11-2025 MR Thoracic spine WO contrast MR T-SPINE W/O Imaging Routine Sacral insufficiency fracture, initial encounter Expected: 05/11/2024, Expires: 05/11/2025 [facility] Comment on above: Expected: 05/11/2024, Expires: Start: 05-11-2024 End: 05-11-2024 Patient encounter procedure [facility] Orthopedic Spine Comment on above: Sacral insufficiency fracture, initial e ncounter (Primary Dx) Start: 05-06-2024 End: 04-20-2025 Bacteria identified in Blood by Culture [facility] Work Phone: Start: 05-05-2024 End: 05-05-2024 Admission to same day surgery center 05/05/2024 12:30 PM EDT - 05/05/2024 2:30 PM EDT Surgery [facility] [address] [place] [phone] Joan Patel MD [address] [address] CYSTOSCOPY [23700 (CPT )] [facility] Comment on above: CYSTOSCOPY [13923 (CPT )] Start: 05-05-2024 End: 05-05-2024 ambulatory [facility] Start: 05-05-2024 End: 05-05-2024 Anesthesia consultation 05/05/2024 12:30 PM EDT Anesthesia Event [facility] [address] [facility] [place] [address] Waleska Stein, PAINTER [employer] - [facility] [address] [place] [address] [facility] Start: 05-05-2024 End: 05-05-2024 Cysto w/insert ureteral stent [facility] Start: 05-05-2024 End: 05-05-2024 Cysto w/ureteroscopy w/lithotripsy [facility] Operating Room Start: 05-05-2024 End: 05-05-2024 Cystourethroscopy [facility] Operating Room Start: 05-05-2024 End: 05-05-2024 Litholapaxy comp/lg > 2.5 cm [facility] Operating Room Start: 05-05-2024 Subsequent hospital visit by physician 05/05/2024 12:30 PM EDT Hospital Encounter [facility] [address] [facility] [place] [address] Joan Patel MD [address] [address] [facility] Start: 04-27-2024 End: 04-27-2024 Admission to establishment 04/27/2024 2:00 PM EDT Pre-Admission Testing [facility] Pre-Admit Testing [address] [place] [phone] Joan Patel MD [address] [place] [address] [facility] Start: 04-27-2024 End: 04-27-2024 ambulatory [facility] Pre-Admit Testin g Start: 04-21-2024 End: 04-21-2024 Patient encounter procedure 04/21/2024 8:45 AM EDT Office Visit [facility] [address] [place] [phone] Carlos Gillette MD [address] [place], [place] [phone] [facility] Start: 04-05-2024 End: 04-05-2024 Patient encounter procedure 04/05/2024 2:30 PM EDT Appointment [facility] [address] [place] [address] [facility] Start: 04-04-2024 Welcome to Medicare Visit (G0402) Welcome to Medicare Visit (G0402) [facility] Start: 03-30-2024 End: 03-30-2024 Patient encounter procedure 03/30/2024 4:00 PM EDT Office Visit [facility] [address] [place] [phone] Carlos Gillette MD [address] [place], [place] [phone] [facility] Start: 02-10-2024 End: 02-09-2025 MR Lumbar spine WO and W contrast IV MR L-SPINE W/+W/O Imaging Routine Paraplegia (HCC) History of lumbar fusion Expected: 02/10/2024, Expires: 02/09/2025 [employer] Work Phone: Comment on above: Expected: 02/10/2024, Expires: Start: 12-29-2023 End: 12-29-2023 Patient encounter procedure 12/29/2023 2:45 PM EDT Office Visit [facility] [address] [facility] [place] [address] Carlos Gillette MD [address] [facility] [place] [address] [facility] Start: 06-05-2023 COVID-19 Vaccine () COVID-19 Vaccine () [facility] Start: 06-05-2023 Influenza vaccination Influenza Vaccine (#1) [facility] Start: 06-05-2023 [facility] Start: 01-23-2023 Hemoglobin A1c measurement Diabetes: Hemoglobin A1C [facility] Start: 01-23-2023 Hepatitis B surface antibody level LDL CHOLESTEROL [facility] Start: 01-23-2023 Lipid panel Lipid Panel [facility] Start: 12-27-2022 Diabetes: Urine Albumin-Creatinine Ratio for Kidney Health Diabetes: Urine Albumin-Creatinine Ratio for Kidney Health [facility] Start: 07-25-2022 Hemoglobin A1c/Hemoglobin.total in Blood HBA1C [facility] Start: 06-05-2022 Influenza vaccination [facility] Start: 10-25-2021 HbA1c (Bld) [Mass fraction] A1C test (Diabetic or Prediabetic) [place], [place] Start: 10-25-2021 Hemoglobin A1c measurement Diabetes: Hemoglobin A1C [facility] Start: 2021 Hepatitis B (HBV) Vaccine (optional start 60+ years) Hepatitis B (HBV) Vaccine (optional start 60+ years) [facility] Start: 2021 Hepatitis B Vaccines (1 of 3 - Risk 3-dose series) Hepatitis B Vaccines (1 of 3 - Risk 3-dose series) [facility] Start: 2021 RSV Immunization aged 60 or older (1 - 1-dose 60+ series) RSV Immunization aged 60 or older (1 - 1-dose 60+ series) [facility] Start: 2021 RSV Immunization for Adults (1 - Risk 60-74 years 1-dose series) RSV Immunization for Adults (1 - Risk 60-74 years 1-dose series) [facility] Start: 2021 RSV Vaccine (1 - Risk 60-74 years 1-dose series) RSV Vaccine (1 - Risk 60-74 years 1-dose series) [facility] Start: 2021 RSV vaccine (optional 60+ years) RSV vaccine (optional 60+ years) [facility] Start: 2021 [facility] Start: 11-20-2020 End: 11-20-2020 Office Visit 11/20/2020 Office Visit Neurosurgery Opal Vigil MD [address] [address] [facility] Start: 11-06-2020 End: 11-06-2020 Office Visit [facility] Start: 06-05-2020 Influenza vaccination Flu vaccine (#1) [place], [place] Start: 01-05-2018 Lipid panel Lipid screen [place] Start: 2016 PROSTATE CANCER SCREENING DISCUSSION PROSTATE CANCER SCREENING DISCUSSION [facility] Start: 2016 Prostate specific antigen measurement Prostate Cancer Screening Discussion [facility] Start: 2011 Pneumococcal vaccination Pneumococcal Vaccine(s) (50+ yrs) (1 of 1 - PCV) [facility] Start: 2011 Screening for malignant neoplasm of colon Colon cancer screen colonoscopy [place] Start: 2011 Screening for malignant neoplasm of lung Lung Cancer Screening [facility] Start: 2011 Shingles (RZV) Vaccine (1 of 2) Shingles (RZV) Vaccine (1 of 2) [facility] Start: 2011 Shingles Vaccine (1 of 2) Shingles Vaccine (1 of 2) [place] Start: 2011 SHINGRIX VACCINE (1 of 2) SHINGRIX VACCINE (1 of 2) [facility] Start: 2011 Zoster Vaccines (1 of 2) Zoster Vaccines (1 of 2) [facility] Start: 2011 [facility] Start: 2006 COLOGUARD (FIT-DNA) COLOGUARD (FIT-DNA) [facility] Start: 2006 Colonoscopy COLONOSCOPY [facility] Start: 2006 COLORECTAL CANCER SCREENING COLORECTAL CANCER SCREENING [facility] Start: [address] COLONOGRAPHY [facility] Start: 2006 FECAL OCCULT BLOOD FECAL OCCULT BLOOD [facility] Start: 2006 Prostate specific antigen measurement Prostate Cancer Screening Discussion [facility] Start: 2006 Screening for malignant neoplasm of colon [facility] [facility] Start: 2006 SIGMOIDOSCOPY SIGMOIDOSCOPY [facility] Start: 1996 Lipid panel Cholesterol [facility] Start: 1980 DTaP/Tdap/Td vaccine (1 - Tdap) DTaP/Tdap/Td vaccine (1 - Tdap) [place] Start: 1980 DTaP/Tdap/Td Vaccines (1 - Tdap) DTaP/Tdap/Td Vaccines (1 - Tdap) [facility] Start: 1980 Hepatitis A (HAV) Vaccine (optional start 19+ years) Hepatitis A (HAV) Vaccine (optional start 19+ years) [facility] Start: 1980 Hepatitis B vaccine (1 of 3 - Risk 3-dose series) Hepatitis B vaccine (1 of 3 - Risk 3-dose series) [place] Start: 1980 Pneumococcal Vaccine: 50+ (1 of 2 - PCV) Pneumococcal Vaccine: 50+ (1 of 2 - PCV) [facility] Start: 1980 Pneumococcal Vaccine: 50+ Years (1 of 2 - PCV) Pneumococcal Vaccine: 50+ Years (1 of 2 - PCV) [facility] Start: 1980 Urine microalbumin profile [facility] Start: 1980 [facility] Start: 1979 ANNUAL PCP TEAM CHRONIC DISEASE VISIT ANNUAL PCP TEAM CHRONIC DISEASE VISIT [facility] Start: 1979 Anxiety Screening Anxiety Screening [facility] Start: 1979 Depression Screening Depression Screening [facility] Start: 1979 Diabetes: Urine Albumin-Creatinine Ratio for Kidney Health Diabetes: Urine Albumin-Creatinine Ratio for Kidney Health [facility] Start: 1979 Diabetic microalbuminuria test Diabetic microalbuminuria test [place] Start: 1979 Hepatitis C screening [facility] Start: 1979 Tetanus + diphtheria + acellular pertussis vaccine (product) Tdap Booster [facility] Start: 1979 [facility] Start: 1977 ONE PNEUMOVAX PRIOR TO AGE 65 ONE PNEUMOVAX PRIOR TO AGE 65 [facility] Start: 1976 HIV screening [facility] Start: 1973 Adult depression screening assessment DEPRESSION SCREENING [facility] Start: 1973 Depression Monitoring Depression Monitoring [facility] Start: 1973 [facility] Start: 1971 3 comp foot exam completed DIABETIC FOOT EXAM [facility] Start: 1971 Diabetic foot examination [facility] Start: 1971 Diabetic retinal exam Diabetic retinal exam [place], [place] Start: 1971 Glaucoma screening [facility] Start: 1971 Hepatitis B screening URINE ALBUMIN:CREATININE RATIO [facility] Start: 1971 Hepatitis C antibody, confirmatory test DILATED RETINAL EXAM [facility] Start: 1971 Preventive dental service [facility] Start: 1967 PNEUMOCOCCAL (1 - PCV) PNEUMOCOCCAL (1 - PCV) [facility] Start: 1967 Pneumococcal 0-64 years Vaccine (1 of 1 - PPSV23) Pneumococcal 0-64 years Vaccine (1 of 1 - PPSV23) [place] Start: 1967 Pneumococcal Vaccine: Pediatrics (0 to 5 Years) and At-Risk Patients (6 to 64 Years) (1 - PCV) Pneumococcal Vaccine: Pediatrics (0 to 5 Years) and At-Risk Patients (6 to 64 Years) (1 - PCV) [facility] Start: 1967 Pneumococcal Vaccine: Pediatrics (0 to 5 Years) and At-Risk Patients (6 to 64 Years) (1 of 2 - PCV) Pneumococcal Vaccine: Pediatrics (0 to 5 Years) and At-Risk Patients (6 to 64 Years) (1 of 2 - PCV) [facility] Start: 1967 [facility] Start: 1966 COVID-19 VACCINE (#1) COVID-19 VACCINE (#1) [facility] Start: 1962 MMR Vaccines (1 of 1 - Standard series) MMR Vaccines (1 of 1 - Standard series) [facility] Start: 1962 [facility] Start: 02-01-1962 COVID-19 VACCINE (#1) COVID-19 VACCINE (#1) [facility] Start: 1961 Hepatitis C screening Hepatitis C screen [place], [place] Start: 1961 HIV screening [facility] Start: 1961 Lipid panel [facility] Start: 1961 Medicare Annual Wellness (AWV) Medicare Annual Wellness (AWV) [facility] Start: 1961 Screening for malignant neoplasm of colon [facility] Start: 1961 [facility] End: 08-22-2025 25 hydroxy includes fractions if performed VITAMIN D, 25-HYDROXY Lab Routine Osteoporosis, unspecified osteoporosis type, unspecified pathological fracture presence 1 Occurrences starting 08/22/2024 until 08/22/2025 [facility] Comment on above: 1 Occurrences starting 08/22/2024 until 08/22/2025 Aerobic and Anaerobi c Culture with Stain [employer] Work Phone: Comment on above: Release Upon Ordering for 1 Occurrences starting 05/05/2024 Aerobic and Anaerobi c Culture with Stain [employer] Work Phone: Comment on above: Release Upon Ordering for 1 Occurrences starting 04/24/2025 End: 08-22-2025 Assay of parathormone PARATHYROID HORMONE INTACT Lab Routine Osteoporosis, unspecified osteoporosis type, unspecified pathological fracture presence 1 Occurrences starting 08/22/2024 until 08/22/2025 [facility] Comment on above: 1 Occurrences starting 08/22/2024 until 08/22/2025 Bacteria identified in Blood by Culture [employer] Work Phone: End: 04-14-2024 Bacteria identified in Lower respiratory specimen by Aerobe culture [employer] Bacteria identified in Unspecified specimen by Aerobe culture Culture, Aerobic Bacteria with Gram Stain Microbiology Routine Calculus of ureter 05/05/2024 4:14 PM EDT [employer] End: 05-05-2024 Bacteria identified in Unspecified specimen by Anaerobe culture [facility] [place] Comment on above: Once for 1 Occurrences starting 05/05/20 24 until 05/05/2024 Bacteria identified in Unspecified specimen by Anaerobe culture [facility] End: 05-23-2023 Bacteria identified in Urine by Culture [employer] Work Phone: Comment on above: Once (Lab) for 1 Occurrences starting until 05/23/2023 Basic metabolic 2000 panel Basic Metabolic Panel Lab Routine Daily until discontinued starting 10/25/2020, 1 completed [employer] Comment on above: Daily until discontinued starting 2020, 1 completed End: 08-22-2025 Basic metabolic 2000 panel - Serum or Plasma BASIC METABOLIC PANEL Lab Routine Osteoporosis, unspecified osteoporosis type, unspecified pathological fracture presence 1 Occurrences starting 08/22/2024 until 08/22/2025 [employer] Work Phone: Comment on above: 1 Occurrences starting 08/22/2024 until 08/22/2025 Calculi Analysis(Stone) [facility] Comment on above: Release Upon Ordering for 1 Occurrences starting 05/05/2024 CBC Auto Differential CBC Auto D ifferential Lab Routine Daily until discontinued starting 10/25/2020, 1 completed [email or web address] Comment on above: Daily until discontinued starting 2020, 1 completed End: 04-14-2024 Fungus identified in Unspecified specimen by Culture [employer] Work Phone: Fungus identified in Unspecified specimen by Culture Fungal Culture Microbiology Routine Calculus of ureter 05/05/2024 4:14 PM EDT [employer] End: 04-14-2024 Lactic acid with reflex [employer] Work Phone: Oxygen therapy [Mini muscogee Data Set] Initiate Oxygen Therapy Protocol Respiratory Care Routine Daily until discontinued starting 10/24/2020 [employer] Comment on above: Daily until discontinued starting 2020 POCT glucose [employer] [facility], CASSIE Comment on above: 4X Daily (AC & HS) until discontinued st arting 10/25/2020 As Needed until disc ontinued starting 10/24/2020 End: 08-22-2025 Protein electrophoretic fractj&quantj serum ELECTROPHORESIS, SERUM PROTEIN Lab Routine Osteoporosis, unspecified osteoporosis type, unspecified pathological fracture presence 1 Occurrences starting 08/22/2024 until 08/22/2025 [facility] [place] Comment on above: 1 Occurrences starting 08/22/2024 until 08/22/2025 Spirometry panel Incentive negin metry RT Respiratory Care Routine Every 2hr while awake until discontinued starting 10/24/2020 [facility]- CASSIE RAMIREZ Comment on above: Every 2hr while awake until discontinued starting 10/24/2020 End: 04-14-2024 Urinalysis complete panel - Urine [employer] Work Phone: Immunizations Immunization Date Immunization Notes Care Provider Nessa peñaloza 04-15-2024 Hemoglobin A1C M[facility] 04-04-2024 Hemoglobin A1C Mh [facility] Payers Date Payer Category Payer Medicare (Managed Care) 1.2. [id number] 2024 Medicare HMO [employer] MEDICARE [id number] 2024 Medicare [id number] 2024 Self-pay [id number] 2024 Medicare [id number]. [id number] 2024 Medicare FFS MEDICARE [id number] 2024 Unknown [id number] 2024 Unknown [id number] 2022 Medicaid [id number] [id number]. [id number] 2021 Medicaid [facility] MEDICAID [id number] 2021-Present [phone] [address] [place] [address] Medicaid [id number] 2016 Unknown [id number] 2008 Unknown 1961 Unknown [id number] 2.16.840.1.737838.3.579.2. 182 1961 Unknown [id number] 2.16.840.1.944482.3.579.2. 182 1961 Unknown [id number] 2.16.840.1.827011.3.579.2. 732 1961 Unknown [id number] 2.16.840.1.733531.3.579.2. 732 1961 Unknown [id number] 2.16.840.1.400779.3.579.2. 732 1961 Unknown [id number] 2.16.840.1.444477.3.579.2. 732 1961 Unknown [id number] 2.16.840.1.152205.3.579.2. 732 1961 Unknown [id number] 2.16.840.1.186466.3.579.2. 732 1961 Unknown [id number] 2.16.840.1.179538.3.579.2. 732 1961 Unknown [id number] 2.16.840.1.244457.3.579.2. 732 1961 Unknown [id number] 2.16.840.1.148595.3.579.2. 732 1961 Unknown [id number] 2.16.840.1.986708.3.579.2. 732 1961 Unknown [id number] 2.16.840.1.397316.3.579.2. 732 1961 Unknown [id number] 2..840.1.090581.3.579.2. 732 Unknown [id number] 2.840.1.045382.3.579.2. 462 Unknown [id number] 2.840.1.171465.3.579.2. 462 Unknown [id number] 2.840.1.295801.3.579.2. 462 Unknown [id number] 2.840.1.603577.3.579.2. 462 Unknown [id number] 2.840.1.088221.3.579.2. 462 Unknown [id number] 2.16.840.1.598846.3.579.2. 462 Unknown [id number] 2.840.1.859752.3.579.2. 462 Unknown [id number] 2.840.1.474975.3.579.2. 462 Unknown [id number] 2.16.840.1.491172.3.579.2. 462 Unknown [id number] 2.16.840.1.839730.3.579.2. 462 Unknown [id number] 2.16.840.1.821121.3.579.2. 462 Unknown [id number] 2.16.840.1.383391.3.579.2. 462 Unknown [id number] 2.16.840.1.848384.3.579.2. 462 Unknown [id number] 2.16.840.1.626056.3.579.2. 462 Unknown [id number] 2.16.840.1.443661.3.579.2. 462 Unknown [id number] 2.16.840.1.245650.3.579.2. 462 Unknown [id number] 2.16.840.1.846129.3.579.2. 462 Unknown [id number] 2.16.840.1.098955.3.579.2. 462 Social History Date Type Detail Facility Start: 10-05-1977 End: 04-27-2024 Tobacco smoking status NHIS Current every day smoker [facility] Start: 10-24-2020 End: 04-27-2024 Tobacco use and exposure Never used [place] Start: 10-24-2020 End: 04-24-2025 Alcohol intake Current non-drinker of alcohol (finding) [place] Start: 10-15-2020 History SDOH Food Worry 1 [place], [place] Start: 10-15-2020 History SDOH Transport Med 2 [place] Start: 12-21-2016 Alcohol Comment occ [place] Start: 1960 Sex Assigned At Not on file [place] Start: 05-13-2023 End: 05-23-2023 Exposure to SARS-CoV-2 (event) Not sure [place] Start: 08-09-2013 End: 04-22-2025 Current every day smoker Current every day smoker [facility] Start: 10-05-1977 History of tobacco use Cigarette Smoker [facility] Start: 1960 Sex Assigned At Male [facility] Start: 01-27-2022 End: 02-06-2022 Exposure to SARS-CoV-2 (event) Unable to assess [facility] Start: 12-29-2023 End: 04-22-2025 Gender identity Not on file [facility] Has the [employer], or [employer] threatened to shut off services in your home in past 12Mo No [facility] How often to you hav e a drink containing alcohol? Never [facility] How many standard drinks containing alcohol do you have on a typical day? Patient does not drink [facility] (I/We) worried wheth er (my/our) food would run out before (I/we) got money to buy more. Never true [facility] Start: 05-05-2022 End: 11-27-2023 Sex Male (finding) [facility] Work Phone: Start: 11-29-2021 Gender identity Identifies as male gender (finding) [facility] Start: 10-23-2023 Sexual orientation Heterosexual (finding) [facility] Medical Equipment Procedure Code Equipment Code Equipment Origin al Text Equipment Identifier Dates Graft Infuse 20g a Medium Bovine Collagen Rhbmp-2 2x1in Bone Vial Absorbable - [id number] Start: 01-14-2022 Substitute Mastergraft Calcium Phosphate Collagen Bone Graft Putty Void - [id number] Start: 12-12-2021 Substitute Mastergraft 10cm Bone Graft Strip 12ml Spine - [id number] Start: 01-14-2022 Substitute Mastergraft 10cm Bone Graft Strip 12ml Spine - [id number] Start: 01-14-2022 Creo Thread 6.5 X 45mm Polyaxial Screw [id number] Start: 01-14-2022 5.5mm Straight R od Ti Alloy 15cm [id number] Start: 01-14-2022 Creo Thread 6.5 X 5cm Polyaxial Screw [id number] Start: 01-14-2022 Thread Locking C ap Creo [id number] Start: 01-14-2022 5.5mm Curved Bart Ti Alloy 45mm [id number] Start: 12-12-2021 Thread Locking C ap Creo [id number] Start: 12-12-2021 Creo Thread 6.5 X 5cm Polyaxial Screw [id number] Start: 12-12-2021 Sable Spacer 6-1 2mm X 10mm X 26mm 8deg [id number] Start: 12-12-2021 [id number] Start: 04-14-2024 [id number] Start: 04-14-2024 Stent Uret 6fr 2 2cm [facility] - [id number] Start: 05-05-2024 Stent Uret 6fr 2 2cm [facility] - [id number] Start: 05-05-2024 Functional Status Date Assessment Result Facility 04-21-2025 Total score [AUDIT-C] 0 04/21/20 25 10:31 PM EDT Giovana Barnard RN [facility] 02-22-2025 Are you deaf, or do you have serious difficulty hearing No 02/22/2025 8:55 PM EDT Nahun Gunderson RN No [facility] 02-22-2025 Are you blind, or do you have serious difficulty seeing, even when wearing glasses No 02/22/2025 8:55 PM EDT Nahun Gunderson RN No [facility] 02-22-2025 Do you have serious difficulty walking or climbing stairs Yes 02/22/2025 8:55 PM EDT Nahun Gunderson RN Yes [facility] 02-22-2025 Do you have difficul ty dressing or bathing Yes 02/22/2025 8:55 PM JARODT Nahun Gunderson RN Yes [facility] 02-22-2025 Because of a physica l, mental, or emotional condition, do you have difficulty doing errands alone such as visiting a physician's office or shopping Yes 02/22/2025 8:55 PM EDT Nahun Gunderson RN Yes [facility] 01-24-2022 Are you deaf, or do you have serious difficulty hearing No 01/24/2022 5:46 PM EDT Tiffanie Womack RN No [facility] 01-24-2022 Are you blind, or do you have serious difficulty seeing, even when wearing glasses No 01/24/2022 5:46 PM EDT Tiffanie Womack RN No [facility] 01-24-2022 Do you have serious difficulty walking or climbing stairs Yes 01/24/2022 5:46 PM EDT Tiffanie Womack RN Yes [facility] 01-24-2022 Do you have difficul ty dressing or bathing Yes 01/24/2022 5:46 PM EDT Tiffanie Womack, RN Yes [facility] 01-24-2022 Because of a physica l, mental, or emotional condition, do you have difficulty doing errands alone such as visiting a physician's office or shopping No 01/24/2022 5:46 PM EDT Tiffanie Womack, RN No [facility] Mental Status Date Assessment Result Facility 02-22-2025 Because of a physica l, mental, or emotional condition, do you have serious difficulty concentrating, remembering, or making decisions No 02/22/2025 8:55 PM EDT Nahun Gunderson, LIBRADO No [facility] 01-24-2022 Because of a physica l, mental, or emotional condition, do you have serious difficulty concentrating, remembering, or making decisions No 01/24/2022 5:46 PM EDT Tiffanie Womack, RN No [facility] Clinical Notes 01-16-2021 to 04-28-2025 Joann King RN - 04/28/2025 3:38 PM EDTJoann King RN - 04/28/2025 3:38 PM Christa Foster RN - 04/27/2025 2:46 PM EDTBerhane Moreno MD - 04/28/2025 2:45 PM EDTAttachments Note Date & Type Note Facility 04-28-2025 Nurse Note Called report to the [facility]. PICC line clean dry and intact. Aide got pt ready and gathered all belongings. Waiting on transport to arrive. [facility] 04-28-2025 Nurse Note Called report to the [facility]. PICC line clean dry and intact. Aide got pt ready and gathered all belongings. Waiting on transport to arrive. Patient dressings changed as per orders. Patient tolerated well. Left PICC dressing changed patient tolerated well documented in this encounter [facility] 04-28-2025 Note Discharge Summary Anmol Reynolds : 1960 ADMIT DATE: 04/21/2025 DISCHARGE DATE: 04/28/2025 PRIMARY CARE PHYSICIAN: Tab Dupont VISIT STATUS: Admission CODE STATUS: Full Code DISCHARGE DIAGNOSES: Acute problems--- Osteomyelitis of sacrum, inferior left pubic rami and sacrum/coccyx junction, status post debridement of left ischial wound/bone biopsy done on 04/24/2025 consistent with osteomyelitis, right buttock wound culture positive for MRSA and moderate anaerobic gram-negative bacilli, left buttock wound culture positive for Enterococcus raffinosus, Clostridium ramosum, Proteus Mirabilis Hyponatremia, resolved Leukocytosis on admission--- resolved DM with hyperglycemia Sacrum stage IV pressure injury, POA Left ischium stage IV pressure injury, POA Debility Iron deficiency anemia Chronic issue--- Paraplegia Hyperlipidemia Depression Peripheral neuropathy DM History of chronic indwelling Santana catheter Anemia Peripheral neuropathy Gastroesophageal flux disease HOSPITAL COURSE: 64-year-old male admitted following infected sacral wound from nursing facility. Workup during this admission showed CT scan of pelvis highly suspicious for osteomyelitis of left inferior pubic rami and sacrum/coccyx junction with erosive lucency as well as bone in contact with the area. Overlying locules of air and edema and wound present in soft tissue. Bladder wall thickening, consider cystitis. Blood culture was negative. Patient had debridement of wound, bone biopsy done on 04/24/2025, bone biopsy was positive for osteomyelitis. Seen by infectious disease team, wound care team, patient on broad-spectrum of antibiotic with Unasyn/vancomycin. Right buttock wound culture positive for MRSA, moderate anaerobic gram-negative bacilli, left buttock wound culture positive for Enterococcus raffinosus, Proteus mirabilis, Clostridium ramosum. Infectious disease team recommended vancomycin/Unasyn with stop date of 06/06/2025 patient will follow-up with surgery team, infectious disease team as outpatient. Patient also had hyponatremia resolved. He had leukocytosis on admission resolved. He had DM with hyperglycemia, A1c of 7.9. Seen by wound care team with diagnosis of sacrum stage IV pressure injury, left ischium stage IV pressure injury, POA. He had iron deficiency anemia, replaced. On the day of discharge denies new symptom, afebrile, vital signs stable On examination--General appearance: No apparent distress, HEENT: Eyes: Pallor noted Cardiovascular: S1S2 heard, RRR Respiratory: Clear to auscultation bilaterally anteriorly Abdomen: Soft, non-tender, non-distended, no mass palpable with normal bowel sounds, chronic indwelling Santana catheter noted. Neurology- Awake alert, answering questions, appeared comfortable Extremity- peripheral edema both lower extremities Left upper extremity single-lumen PICC line noted. CONSULTANTS: General Surgery, infectious disease, wound care team RECOMMENDED NEXT STEPS: CBC, CMP panel, trough vancomycin level, ESR/CRP weekly to be monitored till IV antibiotic is completed Discontinue PICC line after IV antibiotic is completed Stop date of vancomycin/Unasyn is 06-06-25 DISCHARGE MEDICATIONS: Medication List START taking these medications ampicillin-sulbactam 3,000 mg in sodium chloride 0.9 % 100 mL IVPB Infuse 3,000 mg into a venous catheter every 6 hours. stop date of antibiotic is 06/06/2025 Vancomycin HCl in NS 1.5-0.9 GM/250ML-% solution Commonly known as: Vancocin Infuse 250 mL (1,500 mg) into a venous catheter every 12 hours. stop date of antibiotic is 06/06/2025 Start taking on: April 29, 2025 CHANGE how you take these medications acetaminophen 325 MG tablet Commonly known as: Tylenol Take 2 tablets (650 mg) by mouth every 6 hours as needed for mild pain (1-3) or fever (For temp greater than 100.4 F (38 C)) for up to 10 days. What changed: reasons to take this additional instructions bisacodyl 5 MG EC tablet Commonly known as: Dulcolax What changed: Another medication with the same name was removed. Continue taking this medication, and follow the directions you see here. insulin glargine 100 UNIT/ML injection Commonly known as: Lantus Inject 28 Units under the skin every morning. Start taking on: April 29, 2025 What changed: how much to take * Insulin Lispro 100 UNIT/ML solution injection Commonly known as: Humalog Inject 0-18 Units under the skin 3 times daily (with meals). High Dose Correction Algorithm Glucose: Dose: LESS than 150 No Insulin 150-199 3 Units 200-249 6 Units 250-299 9 Units 300-349 12 Units 350-400 15 Units Above 400 18 Units What changed: how much to take when to take this additional instructions * Insulin Lispro 100 UNIT/ML solution injection Commonly known as: Humalog Inject 0-18 Units under the skin Nightly. If eating or bolus tube feeding: High Dos (more content not included)... [facility] 04-28-2025 Hospital course Narrative Images from the original note were not included. Discharge Summary Anmol Reynolds : 1960 ADMIT DATE: 04/21/2025 DISCHARGE DATE: 04/28/2025 PRIMARY CARE PHYSICIAN: Tab Dupont VISIT STATUS: Admission CODE STATUS: Full Code DISCHARGE DIAGNOSES: Acute problems--- Osteomyelitis of sacrum, inferior left pubic rami and sacrum/coccyx junction, status post debridement of left ischial wound/bone biopsy done on 04/24/2025 consistent with osteomyelitis, right buttock wound culture positive for MRSA and moderate anaerobic gram-negative bacilli, left buttock wound culture positive for Enterococcus raffinosus, Clostridium ramosum, Proteus Mirabilis Hyponatremia, resolved Leukocytosis on admission--- resolved DM with hyperglycemia Sacrum stage IV pressure injury, POA Left ischium stage IV pressure injury, POA Debility Iron deficiency anemia Chronic issue--- Paraplegia Hyperlipidemia Depression Peripheral neuropathy DM History of chronic indwelling Santana catheter Anemia Peripheral neuropathy Gastroesophageal flux disease HOSPITAL COURSE: 64-year-old male admitted following infected sacral wound from nursing facility. Workup during this admission showed CT scan of pelvis highly suspicious for osteomyelitis of left inferior pubic rami and sacrum/coccyx junction with erosive lucency as well as bone in contact with the area. Overlying locules of air and edema and wound present in soft tissue. Bladder wall thickening, consider cystitis. Blood culture was negative. Patient had debridement of wound, bone biopsy done on 04/24/2025, bone biopsy was positive for osteomyelitis. Seen by infectious disease team, wound care team, patient on broad-spectrum of antibiotic with Unasyn/vancomycin. Right buttock wound culture positive for MRSA, moderate anaerobic gram-negative bacilli, left buttock wound culture positive for Enterococcus raffinosus, Proteus mirabilis, Clostridium ramosum. Infectious disease team recommended vancomycin/Unasyn with stop date of 06/06/2025 patient will follow-up with surgery team, infectious disease team as outpatient. Patient also had hyponatremia resolved. He had leukocytosis on admission resolved. He had DM with hyperglycemia, A1c of 7.9. Seen by wound care team with diagnosis of sacrum stage IV pressure injury, left ischium stage IV pressure injury, POA. He had iron deficiency anemia, replaced. On the day of discharge denies new symptom, afebrile, vital signs stable On examination--General appearance: No apparent distress, HEENT: Eyes: Pallor noted Cardiovascular: S1S2 heard, RRR Respiratory: Clear to auscultation bilaterally anteriorly Abdomen: Soft, non-tender, non-distended, no mass palpable with normal bowel sounds, chronic indwelling Santana catheter noted. Neurology- Awake alert, answering questions, appeared comfortable Extremity- peripheral edema both lower extremities Left upper extremity single-lumen PICC line noted. CONSULTANTS: General Surgery, infectious disease, wound care team RECOMMENDED NEXT STEPS: CBC, CMP panel, trough vancomycin level, ESR/CRP weekly to be monitored till IV antibiotic is completed Discontinue PICC line after IV antibiotic is completed Stop date of vancomycin/Unasyn is 06-06-25 DISCHARGE MEDICATIONS: Medication List START taking these medications ampicillin-sulbactam 3,000 mg in sodium chloride 0.9 % 100 mL IVPB Infuse 3,000 mg into a venous catheter every 6 hours. stop date of antibiotic is 06/06/2025 Vancomycin HCl in NS 1.5-0.9 GM/250ML-% solution Commonly known as: Vancocin Infuse 250 mL (1,500 mg) into a venous catheter every 12 hours. stop date of antibiotic is 06/06/2025 Start taking on: April 29, 2025 CHANGE how you take these medications acetaminophen 325 MG tablet Commonly known as: Tylenol Take 2 tablets (650 mg) by mouth every 6 hours as needed for mild pain (1-3) or fever (For temp greater than 100.4 F (38 C)) for up to 10 days. What changed: reasons to take this additional instructions bisacodyl 5 MG EC tablet Commonly known as: Dulcolax What changed: Another medication with the same name was removed. Continue taking this medication, and follow the directions you see here. insulin glargine 100 UNIT/ML injection Commonly known as: Lantus Inject 28 Units under the skin every morning. Start taking on: April 29, 2025 What changed: how much to take * Insulin Lispro 100 UNIT/ML solution injection Commonly known as: Humalog Inject 0-18 Units under the skin 3 times daily (with meals). High Dose Correction Algorithm Glucose: Dose: LESS than 150 No Insulin 150-199 3 Units 200-249 6 Units 250-299 9 Units 300-349 12 Units 350-400 15 Units Above 400 18 Units What changed: how much to take when to take this additional instructions * Insulin Lispro 100 UNIT/ML solution injection Commonly known as: Humalog Inject 0-18 Units under the skin Nightly. If eating or bolus tube feeding: High Dose Correction Algorithm Glucose: Dose: LESS than 150 No Insulin 150-199 3 Units 200-249 6 Units 250-299 9 Units 300-349 12 Units 350-400 15 Units Above 400 18 Units What changed: You were already taking a medication with the same name, and this prescription was added. Make sure you understand how and when to take each. naloxone 4 MG/0.1ML nasal spray Commonly known as: Narcan Administer 1 spray (4 mg) into affected nostril(s) as needed for opioid reversal. May repeat every 2-3 minutes if needed, alternating nostrils, until medical assistance becomes available. What changed: See the new instructions. tamsulosin 0.4 MG 24 hr capsule Commonly known as: Flomax Take 1 capsule (0.4 mg) by mouth daily. Start taking on: April 29, 2025 What changed: how to take this * This list has 2 medication(s) that are the same as other medications prescribed for you. Read the directions carefully, and ask your doctor or other care provider to review them with you. CONTINUE taking these medications apixaban 5 MG tablet Commonly known as: Eliquis cyclobenzaprine 10 MG tablet Commonly known as: Flexeril DULoxetine [address] capsule Commonly known as: Cymbalta ferrous sulfate 325 (65 Fe) MG tablet midodrine 10 MG tablet Commonly known as: Proamatine mirtazapine 7.5 MG tablet Commonly known as: Remeron multivitamin capsule oxyCODONE 15 MG immediate release tablet Commonly known as: Roxicodone Take 1 tablet (15 mg) by mouth 4 times daily. polyethylene glycol (PEG) 3350 17 g packet Commonly known as: Miralax pregabalin 200 MG capsule Commonly known as: Lyrica Take 1 capsule (200 mg) by mouth 3 times daily. senna-docusate 8.6-50 MG tablet Commonly known as: [place]enne-Colace Tradjenta 5 MG tablet Generic drug: linaGLIPtin Tums 500 MG chewable tablet Generic drug: calcium carbonate STOP taking these medications acetic acid 0.25 % irrigation alogliptin 25 MG tablet Commonly known as: Nesina aspirin 81 MG EC tablet docusate sodium 100 MG tablet Commonly known as: Colace MILK OF MAGNESIA PO potassium chloride CR 20 MEQ ER tablet Commonly known as: Klor-Con M20 Pure & Gentle Lubricant 3 MG/ML solution Generic drug: Hypromellose sodium chloride 0.9 % irrigation solution sulfamethoxazole-trimethoprim 800-160 MG tablet Commonly known as: Bactrim DS Where to Get Your Medications You can get these medications from any pharmacy Bring a paper prescription for each of these medications oxyCODONE 15 MG immediate release tablet Information about where to get these medications is not yet available Ask your nurse or doctor about these medications acetaminophen 325 MG tablet ampicillin-sulbactam 3,000 mg in sodium chloride 0.9 % 100 mL IVPB insulin glargine 100 UNIT/ML injection Insulin Lispro 100 UNIT/ML solution injection Insulin Lispro 100 UNIT/ML solution injection naloxone 4 MG/0.1ML nasal spray pregabalin 200 MG capsule tamsulosin 0.4 MG 24 hr capsule Vancomycin HCl in NS 1.5-0.9 GM/250ML-% solution DIET: Adult diet Regular; 4 carb choices (60 gm/meal) ACTIVITY: Up with assist COMPLEXITY OF FOLLOW UP: [] Moderate Complexity: follow up within 7-14 calendar days (89261) [] Severe Complexity: follow up within 7 calendar days (94941) FOLLOW UP TESTING, PENDING RESULTS OR REFERRALS AT TRANSITIONAL CARE VISIT: [] Yes [] No PENDING STUDIES: DISPOSITION: Skilled Facility FACILITY/HOME CARE AGENCY NAME: Follow up with Tab Dupont PCP - General Internal Medicine [phone] [facility] [address] [facility] [address] Next Steps: Schedule an appointment as soon as possible for a visit in 1 week(s) [facility] Wound Ostomy Wound Care [phone] [facility] [address] Next Steps: Schedule an appointment as soon as possible for a visit Kaela Durand MD Surgical Critical Care General Surgery Trauma Surgery [phone] [facility] [address] Next Steps: Schedule an appointment as soon as possible for a visit in 2 week(s) Savage Alvarez MD Infectious Diseases [phone] [facility] [address] Next Steps: Schedule an appointment as soon as possible for a visit in 1 month(s) INSTRUCTIONS TO MA/SW: Please call patient on day after discharge (must document patient contacted within 2 business days of discharge). FOLLOW UP QUESTIONS FOR MA/SW: 1. Did you get medications filled and taking them as instructed from discharge? 2. Are you following your discharge instructions from your hospital stay? 3. Please confirm patient is scheduled for a follow up appointment within the above time frame. DISCHARGE TIME: > 30 minutes SIGNED: Berhane Moreno MD 04/28/2025, 2:45 PM documented in this encounter [facility] 04-28-2025 Plan of care note Proteus is sensitive to unasyn. OPAT for unasyn and vancomycin completed and scanned into media with stop date of 06/06. Follow up with Dr. Alvarez. D/w TCC. Plans for discharge to SNF. Jo-Ann Ortiz MD [employer] Work Phone: 04-28-2025 Miscellaneous Notes Proteus is sensitive to unasyn. OPAT for unasyn and vancomycin completed and scanned into media with stop date of 06/06. Follow up with Dr. Alvarez. D/w TCC. Plans for discharge to SNF. Jo-Ann Ortiz MD Confirmed pickup time of 5:30pm on 04/28/25 by [employer] at phone number [phone]. Location of facility drop off is [facility]. Facility notified via [facility], [facility] notified on secure chat. Transport requested in Roundtrip in will call to [facility] per [facility]. Care Management Progress Note Short Medical why still here: continues to be treated for osteomyelitis. ID following- awaiting sensitivities for final IV plan. Currently receiving IV unasyn and vanc. PICC Line intact for antic 6wk course. Planned Discharge Disposition: plan for return to [facility]- will NOT need auth. [employer] to place pt in roundtrip under will call for transport assist. Barriers/Today we still Wait: need opat/final plan for discharge. Length of Stay (Days): 6 GMLOS: 8.[address] Alvarez- s/p L ischial wound debridement with osteomyelitis. Additional organisms are being reported on OR cx. E raffinosus, Proteus, MRSA, Clostridium ramosum, enteric gosia, and skin gosia. Await Proteus sensitivities prior to completion of OPAT. Will provide final recommendations tomorrow. D/w TCC. Jo-Ann Ortiz MD Care Management Progress Note Short Medical why still here: pt being treated for osteomyelitis. Receiving IV unaysn and vanc with ID planning on extended IV course- awaiting opat/final plan. Planned Discharge Disposition: Plan for return to [facility]- does not need auth. Barriers/Today we still Wait: ID plan/opat. Length of Stay (Days): 5 GMLOS: 8.4 Care Management Progress Note Short Medical why still here: Pt continues to be treated for osteomyelitis. Receiving IV merrem q8hr with plan for 6wk tx per ID-final plan not complete. Planned Discharge Disposition: plan for return to [facility]- will need auth d/t skilled need for IV atb tx. Facility updated and asked to submit for auth. ADELINE complete. Barriers/Today we still Wait: Plan from ID/line placement and auth. Length of Stay (Days): 4 GMLOS: 8.4 Care Management Progress Note Short Medical why still here: Pt continues to be treated for osteomyelitis. 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 Planned Discharge Disposition: Pt from [facility]- met with pt this afternoon- introduced self and role. Verified return when stable. Will need auth if pt has skilled needs (IV atb greater than once a day will qualify). Barriers/Today we still Wait: ID plan/line placement/opat. Length of Stay (Days): 3 GMLOS: 8.4 SW consult-[facility] transportation. SW reviewed chart. Pt is a LTC resident of [facility]. [place] is responsible for pt transportation for medical appointments. . Return Referral placed to [facility] via [facility]port per TCC request. Await review and response regarding ability to accept. TCC notified. Care Management Progress Note Short Medical why still here: Pt adm for tx/evaluation of osteomyelitis. OR this am with surgery for debridement of sacral and ischial wounds. 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 Planned Discharge Disposition: Pt from [facility] chcf. Attempted to confirm return with pt however pt sleeping this am- unable to arouse for conversation. Barriers/Today we still Wait: IV atb/ID plan. Length of Stay (Days): 2 GMLOS: 4 Patient states nobody here to update OPERATIVE REPORT Date of Service: 04/24/2025 SURGEON: Kaela Durand MD PARTICIPATING SURGEON: Cari Ling MD and Kathrin Alcantara MD (Resident) PREOPERATIVE DIAGNOSIS: 1. Left ischial wound POSTOPERATIVE DIAGNOSIS: 1. Left ischial wound with osteomyelitis PROCEDURE PERFORMED: 1. Excisional debridement 2. Bone biopsy 3. Wet to dry dressing ESTIMATED BLOOD LOSS: 50 cc COMPLICATIONS: None. DRAINS: None FINDINGS: Ischial wound debridement with osteomyelitis HISTORY AND INDICATIONS: Please see the history and physical form, as well as the progress notes for the patient. This 64 y.o. male patient has a left ischial wound that requires debridement. DESCRIPTION OF PROCEDURE: The patient was brought to the operating room. The patient had endotracheal intubation and induction of general anesthesia without any cardiovascular compromise or event. The patient was placed prone on the operating room table. A time-out was performed identifying the correct patient, necessary equipment, and the procedure to be performed. All were in agreement in the room with Anesthesia, the surgeons, and operating room staff, and we proceeded as planned. The patient received a preoperative dose of antibiotics prior to the beginning of the procedure and will be on perioperative dosing of antibiotics. Excisional debridement of left ischial wound was carried out using bovie electrocautery with removal of necrotic and nonviable tissue down to the bone. The bone appears to be infected as well. A bone biopsy was taken and sent for culture and pathology. The wound measured 7cm x 4cm. Hemostasis was achieved with bovie electrocautery. Two pieces of [place] patch were placed in the wound bed. Betadine soak Kerlix was then packed in the wound. Dressings were applied overtop. The sponge, instrument and needle counts were correct at the end of the case. The patient was extubated and transferred to PACU in stable condition. Cosigned by Kaela Durand MD at 04/26/2025 4:55 PM EDT Associated attestation - Kaela Durand MD - 04/26/2025 4:55 PM EDT I attest that I was present and supervised the entire procedure. I agree with the operative details as documented in the resident's note. Excisional debridement of necrotic ischial wound, total wound measurement 7 x 4 cm = 28 cm2 [CPT 78546, 34080] Open biopsy of left ischium [CPT 53348] This note is electronically signed by: Kaela Durand MD 1:56 PM, 04/25/2025. Problem: Pain - Adult Goal: Verbalizes/displays adequate comfort level or baseline comfort level Outcome: Progressing Problem: Safety - Adult Goal: Free from fall injury Outcome: Progressing Problem: Discharge Planning Goal: Discharge to home or other facility with appropriate resources Outcome: Progressing Problem: Chronic Conditions and Co-morbidities Goal: Patient's chronic conditions and co-morbidity symptoms are monitored and maintained or improved Outcome: Progressing Problem: Pain - Adult Goal: Verbalizes/displays adequate comfort level or baseline comfort level Outcome: Progressing Problem: Safety - Adult Goal: Free from fall injury Outcome: Progressing Problem: Chronic Conditions and Co-morbidities Goal: Patient's chronic conditions and co-morbidity symptoms are monitored and maintained or improved Outcome: Progressing Problem: Pain - Adult Goal: Verbalizes/displays adequate comfort level or baseline comfort level Outcome: Progressing Problem: Safety - Adult Goal: Free from fall injury Outcome: Progressing Problem: Discharge Planning Goal: Discharge to home or other facility with appropriate resources Outcome: Progressing Problem: Chronic Conditions and Co-morbidities Goal: Patient's chronic conditions and co-morbidity symptoms are monitored and maintained or improved Outcome: Progressing Problem: Pain - Adult Goal: Verbalizes/displays adequate comfort level or baseline comfort level Outcome: Progressing Problem: Safety - Adult Goal: Free from fall injury Outcome: Progressing Problem: Discharge Planning Goal: Discharge to home or other facility with appropriate resources Outcome: Progressing Problem: Chronic Conditions and Co-morbidities Goal: Patient's chronic conditions and co-morbidity symptoms are monitored and maintained or improved Outcome: Progressing Problem: Pain - Adult Goal: Verbalizes/displays adequate comfort level or baseline comfort level Outcome: Progressing Problem: Safety - Adult Goal: Free from fall injury Outcome: Progressing Problem: Discharge Planning Goal: Discharge to home or other facility with appropriate resources Outcome: Progressing Problem: Chronic Conditions and Co-morbidities Goal: Patient's chronic conditions and co-morbidity symptoms are monitored and maintained or improved Outcome: Progressing Patient: Anmol Reynolds : 1960 Date of Evaluation: 04/21/2025 ED Supervising Physician: Brad Campos MD I personally evaluated Anmol Reynolds and made/approved the management plan and take responsibility for the patient management. In brief, Anmol Reynolds is a 64 y.o. that presents to the emergency department with concerns for wound infection. Patient is paraplegic secondary to a surgical complication years ago. States that he is at a care home and they were concerned that his wounds on his sacrum and buttock are getting infected. On physical exam he has a wound on his sacrum at the top of the gluteal cleft which appears to be healing well. The patient states that wound is old. He also has a stage III decubitus ulcer on his right buttock with surrounding erythema that is hot to touch and foul-smelling. Will start antibiotics, check labs, check CT, and reassess. For full details of the encounter please see the resident note dated same day. Differential diagnosis: Acute cellulitis, acute wound infection, acute osteomyelitis, acute sepsis I personally discussed the patient's management with other clinicians: CHIEF COMPLAINT Chief Complaint Patient presents with Wound Infection Per EMS pt was sent here from the [place] for wound infections. Pt has two wound on his sacrum - one at the top of sacrum and one at the bottom of the buttocks. Denies any fever/ CP/FEVER/ SOB. Pt is paralysis. HISTORY OF PRESENT ILLNESS (Location/Symptom, Timing/Onset, Context/Setting, Quality, Duration, Modifying Factors, Severity) Note limiting factors. I wore appropriate PPE for the entirety of this encounter. Nursing Notes were reviewed. Limitations to history: None Outside historians: None REVIEW OF SYSTEMS Review of Systems Pertinent positives and negatives as per HPI. PAST MEDICAL HISTORY Medical History[1] SURGICAL HISTORY Surgical History[2] CURRENT MEDICATIONS Previous Medications ACETAMINOPHEN (TYLENOL) 325 MG TABLET Take 650 mg by mouth every 6 hours as needed. For elevated temp and/or pain. Do not exceed 3 grams in 24 hour period. ACETIC ACID 0.25 % IRRIGATION ALOGLIPTIN (NESINA) 25 MG TABLET daily. APIXABAN (ELIQUIS) 5 MG TABLET Take 5 mg by mouth twice a day. ASPIRIN 81 MG EC TABLET Take 81 mg by mouth daily. BISACODYL (DULCOLAX) 5 MG EC TABLET Take 5 mg by mouth Daily as needed for constipation. Do not crush, chew, or split. BISACODYL (DULCOLAX) 5 MG SPLIT SUPPOSITORY Insert into the rectum Daily as needed. CALCIUM CARBONATE (TUMS) 500 MG CHEWABLE TABLET 1,000 mg every 8 hours as needed for indigestion or heartburn. CYCLOBENZAPRINE (FLEXERIL) 10 MG TABLET Take 10 mg by mouth 3 times daily as needed for muscle spasms. DOCUSATE SODIUM (COLACE) 100 MG TABLET Take 100 mg by mouth 2 times daily. DULOXETINE (CYMBALTA) [address] CAPSULE Take 30 mg by mouth daily. FERROUS SULFATE 325 (65 FE) MG TABLET Take 325 mg by mouth daily (with breakfast). HYPROMELLOSE (PURE & GENTLE LUBRICANT) 0.3 % SOLUTION Administer 1 drop into affected eye(s) if needed. INSULIN GLARGINE (LANTUS) 100 UNIT/ML PEN Inject 45 Units under the skin every morning. INSULIN LISPRO (HUMALOG) 100 UNIT/ML SOLUTION INJECTION Inject 0-28 Units under the skin. 0-160=0 units; 161-200=14 units, 201-250=18 units, 251-300=20 units 301-350=22 units, 351-400=28 units, 401 or higher give 28 units and call physician. LINAGLIPTIN (TRADJENTA) 5 MG TABLET 5 mg daily. MAGNESIUM HYDROXIDE (MILK OF MAGNESIA PO) Take 30 mL by mouth Daily as needed. MIDODRINE (PROAMATINE) 10 MG TABLET Take 10 mg by mouth 3 times a day. MIRTAZAPINE (REMERON) 7.5 MG TABLET Take 7.5 mg by mouth Nightly. MULTIPLE VITAMIN (MULTIVITAMIN) CAPSULE Take 1 capsule by mouth daily. NALOXONE (NARCAN) 4 MG/0.1 ML NASAL SPRAY OXYCODONE (ROXICODONE) 15 MG IMMEDIATE RELEASE TABLET Take 1 tablet (15 mg) by mouth in the morning and 1 tablet (15 mg) at noon and 1 tablet (15 mg) in the evening and 1 tablet (15 mg) before bedtime. POLYETHYLENE GLYCOL, PEG, 3350 (MIRALAX) 17 G PACKET Take 17 g by mouth in the morning and 17 g in the evening. POTASSIUM CHLORIDE CR (KLOR-CON M20) 20 MEQ ER TABLET 40 mEq daily. PREGABALIN (LYRICA) 200 MG CAPSULE Take 1 capsule (200 mg) by mouth 3 times daily for 7 days. SENNA-DOCUSATE (CHEYENNE-COLACE) 8.6-50 MG TABLET Take 2 tablets by mouth twice a day. SODIUM CHLORIDE 0.9 % IRRIGATION SOLUTION Irrigate with as directed. 10 ml every 12 hours before and after medication administration SULFAMETHOXAZOLE-TRIMETHOPRIM (BACTRIM DS) 800-160 MG TABLET 1 tablet every 12 hours. TAMSULOSIN (FLOMAX) 0.4 MG 24 HR CAPSULE 0.4 mg daily. ALLERGIES Patient has no known allergies. FAMILY HISTORY Family History[3] SOCIAL HISTORY Social History[4] SCREENINGS [place] Coma Scale Best Eye Response: Spontaneous Best Verbal Response: Oriented Best Motor Response: Follows commands Beatrice Coma Scale Score: 15 PHYSICAL EXAM ED Triage Vitals Temp Pulse Resp BP -- -- -- -- SpO2 Temp src Heart Rate Source Patient Position -- -- -- -- BP Location FiO2 (%) -- -- Physical Exam Vitals and nursing note reviewed. Constitutional: Appearance: He is well-developed. HENT: Head: Normocephalic and atraumatic. Eyes: Conjunctiva/sclera: Conjunctivae normal. Cardiovascular: Rate and Rhythm: Normal rate. Pulmonary: Effort: Pulmonary effort is normal. No respiratory distress. Abdominal: Palpations: Abdomen is soft. Tenderness: There is no abdominal tenderness. Musculoskeletal: Cervical back: Neck supple. Skin: General: Skin is warm and dry. Comments: Healing wound at the proximal gluteal cleft, stage III decubitus ulcer in the right buttock with surrounding erythematous hot to touch with foul-smelling discharge Neurological: Mental Status: He is alert. Psychiatric: Mood and Affect: Mood normal. DIAGNOSTIC RESULTS Procedures/EKG: See epiphany for interpretation RADIOLOGY (Per Emergency Physician): Interpretation per the Radiologist below, if available at the time of this note: CT pelvis w IV contrast Final Result 1. Findings are highly suspicious for osteomyelitis of the left inferior pubic ramus and sacrum/coccyx junction with erosive lucency as well as bone in contact with air. Overlying locules of air and edema and wound present in the soft tissue. 2. Bladder wall thickening, consider cystitis. 3. Additional findings, as above. Report Dictated on Electronically Signed By: Geneva Lunsford MD Electronically Signed Date/Time: 04/22/2025 12:31 AM EDT ED BEDSIDE ULTRASOUND: Performed by ED Physician - none LABS: Labs Reviewed CULTURE, AEROBIC BACTERIA WITH GRAM STAIN - Abnormal Result Value Culture Culture in progress Gram Stain Result (*) Value: Many Polymorphonuclear leukocytes per low power field Gram Stain Result Many Gram negative bacilli (*) Gram Stain Result Many Gram positive cocci in pairs and chains (*) Gram Stain Result Few Gram positive cocci in clusters (*) Gram Stain Result Few Gram positive bacilli (*) CBC WITH AUTO DIFFERENTIAL - Abnormal Auto WBC 12.5 (*) RBC 4.03 (*) Hemoglobin 11.7 (*) Hematocrit 35.6 (*) MCV 88.3 MCH 29.0 MCHC 32.9 RDW 14.9 Platelets 372 MPV 9.8 nRBC 0.0 Neutrophils Relative 70.7 Lymphocytes Relative 18.1 Monocytes Relative 7.8 Eosinophils Relative 2.3 Basophils Relative 0.6 Immature Grans % 0.5 Neutrophils Absolute 8.8 (*) Lymphocytes Absolute 2.3 Monocytes Absolute 1.0 (*) Eosinophils Absolute 0.3 Basophils Absolute 0.1 Immature Grans Absolute 0.1 (*) COMPREHENSIVE METABOLIC PANEL - Abnormal SODIUM 130 (*) POTASSIUM 4.3 CHLORIDE 99 CARBON DIOXIDE 21 (*) ANION GAP 10 UREA NITROGEN 10 CREATININE 0.65 (*) GLUCOSE 202 (*) CALCIUM 8.5 (*) AST (SGOT) 13 ALT 6 ALKALINE PHOSPHATASE 116 ALBUMIN 2.3 (*) BILIRUBIN, TOTAL 0.5 TOTAL PROTEIN 7.6 eGFR >90.0 SEDIMENTATION RATE, AUTOMATED - Abnormal Sed Rate 78 (*) LACTIC ACID WITH REFLEX - Normal LACTIC ACID 1.1 BLOOD CULTURE BLOOD CULTURE AEROBIC AND ANAEROBIC CULTURE WITH STAIN Narrative: The following orders were created for panel order Aerobic and Anaerobic Culture with Stain. Procedure Abnormality Status --------- ------ Culture, Aerobic Bacteri...[[id number]] Abnormal Preliminary result Anaerobic culture[[id number]] In process Please view results for these tests on the individual orders. CULTURE ANAEROBIC All other labs were within normal range or not returned as of this dictation. EMERGENCY DEPARTMENT COURSE and DIFFERENTIAL DIAGNOSIS/MDM: Vitals: Vitals: 04/21/25 2228 BP: 113/62 BP Location: Right arm Patient Position: Lying Pulse: 82 Resp: 16 Temp: 36.7 C (98.1 F) TempSrc: Oral SpO2: 95% Weight: 90.7 kg (200 lb) Height: 1.905 m (6' 3") Diagnoses as of 04/22/25 0200 Other acute osteomyelitis, other site (HCC) Medications vancomycin IVPB 1500 mg in 250 mL NS (premix) (1,500 mg IntraVENous New Bag 04/22/25 0027) sodium chloride 0.9 % bolus 1,000 mL (0 mL IntraVENous Stopped 04/22/25 0023) cefepime (Maxipime) 2,000 mg in sodium chloride 0.9 % 50 mL IVPB Mini-Bag Plus (0 mg IntraVENous Stopped 04/21/25 2338) iopamidol (Isovue-370) 76 % injection 75 mL (75 mL IntraVENous Given 04/22/25 0007) HYDROmorphone (Dilaudid) injection 0.5 mg (0.5 mg IntraVENous Given 04/22/25 0142) REVAL: MDM On reassessment I talked to the patient about his test results. His CT is concerning for sacral osteomyelitis. Will continue antibiotics and admit for further workup and treatment. CRITICAL CARE TIME CONSULTS: None PROCEDURES: Unless otherwise noted below, none Procedures Patients symptoms are consistent with sepsis, severe sepsis, or septic shock (If yes use ".sepsiscoremeasure"): No FINAL IMPRESSION 1. Other acute osteomyelitis, other site ([facility]) DISPOSITION Admit 04/22/2025 01:32:25 AM PATIENT REFERRED TO: No follow-up provider specified. DISCHARGE MEDICATIONS: New Prescriptions No medications on file (Comment: Please note this report has been produced using speech recognition software and may contain errors related to that system including errors in grammar, punctuation, and spelling, as well as words and phrases that may be inappropriate. If there are any questions or concerns please feel free to contact the dictating provider for clarification.) Brad Campos MD (electronically signed) Emergency Medicine Provider [1] Past Medical History: Diagnosis Date Abnormal posture Abscess, perineum Anemia BPH (benign prostatic hyperplasia) Chronic back pain Hematuria Hip sprain Hyperlipidemia Hypertension Major depressive disorder, single episode, unspecified MRSA (methicillin resistant staph aureus) culture positive spine 2021 Muscle wasting and atrophy, not elsewhere classified, left lower leg Muscle weakness (generalized) Neuropathy Obstructive and reflux uropathy, unspecified Osteoarthritis Other abnormalities of gait and mobility Other reduced mobility Paraplegia (HCC) Sciatica Spinal stenosis of lumbar region with neurogenic claudication Type 2 diabetes mellitus without complication (CMS/HCC) (HCC) Urinary calculus, unspecified UTI (urinary tract infection) [2] Past Surgical History: Procedure Laterality Date ANKLE SURGERY Right He has a titanium plate to the right ankle KNEE SURGERY Left ACL KNEE SURGERY Left removal of screw LAMINECTOMY Left 10/24/2020 LEFT BILATERAL L2-3-4-5 DECOMPRESSION performed by Opal Vigil MD at [facility] OR ORTHOPEDIC SURGERY Right removal of hardware ankle US PLACE URETAL STENT PERC PRE-EXIST TRACT S&I (HISTORICAL) Bilateral 04/14/2024 Dr. Patel/Bashir [3] No family history on file. [4] Social History Socioeconomic History Marital status: Tobacco Use Smoking status: Every Day Current packs/day: 0.25 Average packs/day: 0.5 packs/day for 44.5 years (21.4 ttl pk-yrs) Types: Cigarettes Start date: 1977 Smokeless tobacco: Never Vaping Use Vaping status: Every Day Substances: Nicotine, Flavoring Substance and Sexual Activity Alcohol use: No Drug use: No Social Drivers of Health Financial Resource Strain: Low Risk (04/24/2023) Received from [facility] Overall Financial Resource Strain (CARDIA) Difficulty of Paying Living Expenses: Not hard at all Food Insecurity: No Food Insecurity (02/17/2025) Received from [facility] Hunger Vital Sign Worried About Running Out of Food in the Last Year: Never true Ran Out of Food in the Last Year: Never true Transportation Needs: No Transportation Needs (02/17/2025) Received from [facility] PRAPARE - Transportation Lack of Transportation (Medical): No Lack of Transportation (Non-Medical): No Intimate Partner Violence: Not At Risk (05/18/2024) Humiliation, Afraid, Rape, and Kick questionnaire Fear of Current or Ex-Partner: No Emotionally Abused: No Physically Abused: No Sexually Abused: No Housing Stability: Unknown (02/17/2025) Received from [facility] Housing Stability Vital Sign Unable to Pay for Housing in the Last Year: No Homeless in the Last Year: No Brad Campos MD 04/22/25 0201 documented in this encounter [facility] 04-28-2025 Progress note Formatting of t his note might be different from the original. Confirmed pickup time of 5:30pm on 04/28/25 by [employer] at phone number [phone]. Location of facility drop off is [facility]. Facility notified via [employer], [facility] notified on secure chat. [facility] 04-28-2025 Hospital Discharge instructions Berhane Moreno MD - 04/28/2025 1:10 PM EDT Up with assist Berhane Moreno MD - 04/28/2025 1:10 PM EDT ADA 1800 diet Joann King RN - 04/26/2025 10:39 AM EDT Images from the original note were not included. Continuity of Care Form Patient Name: Anmol Reynolds : 1960 Admit date: 04/21/2025 Discharge date: 04/28/2025 Code Status Order: Full Code Advance Directives: N Admitting Physician: Georgette Bueno MD PCP: Tab Dupont Discharging Nurse: Joann Coley Hospital Unit/Room#: N4-455/N4-455 A Discharging Unit Emergency Contact: Extended Emergency Contact Information Primary Emergency Contact: Ronald Reynolds Mobile Relation: Sibling Secondary Emergency Contact: SUMI REYNOLDS Mobile Relation: Daughter Past Surgical History: Past Surgical History: Procedure Laterality Date ANKLE SURGERY Right He has a titanium plate to the right ankle KNEE SURGERY Left ACL KNEE SURGERY Left removal of screw LAMINECTOMY Left 10/24/2020 LEFT BILATERAL L2-3-4-5 DECOMPRESSION performed by Opal Vigil MD at [facility] OR ORTHOPEDIC SURGERY Right removal of hardware ankle OTHER SURGICAL HISTORY 04/24/2025 Sacral wound DEBRIDEMENT SKIN SUBCUTANEOUS TISSUE MUSCLE - Bilateral US PLACE URETAL STENT PERC PRE-EXIST TRACT S&I (HISTORICAL) Bilateral 04/14/2024 Dr. Patel/Bashir Immunization History: There is no immunization history on file for this patient. Active Problems: Medical Problems Problem List * (Principal) Other acute osteomyelitis, other site (HCC) Hypertension Hyperglycemia Hip sprain Anxiety Septic shock (HCC) Pressure injury of coccygeal region, stage 3 (HCC) Bladder calculus Calculus of ureter Positive blood cultures Nicotine use disorder Unspecified osteoarthritis, unspecified site Pilonidal cyst without abscess Diabetes mellitus without complication (HCC) Lumbar radiculopathy Abnormal finding on EKG Other intervertebral disc displacement, lumbar region Lumbar stenosis with neurogenic claudication Spinal stenosis of lumbar region with neurogenic claudication Herniated nucleus pulposus, L5-S1, left Isolation/Infection: No active isolations MRSA, ESBL Nurse Assessment: Last Vital Signs: BP 100/56 (BP Location: Right arm, Patient Position: Lying) Pulse 67 Temp 36.6 C (97.9 F) (Temporal) Resp 20 Ht 1.905 m (6' 3") Wt 88.6 kg (195 lb 6.4 oz) SpO2 95% BMI 24.42 kg/m Last documented pain score (0-10 scale): Last Weight: Wt Readings from Last 1 Encounters: 04/22/25 88.6 kg (195 lb 6.4 oz) Mental Status: ADELINE Patient Mental Status: oriented and alert IV Access: ADELINE IV Access: PICC - site: upper arm left, condition patent and no redness, insertion date: Nursing Mobility/ADLs: Walking Total assistance Transfer Total assistance Bathing Total assistance Dressing Total assistance Toileting Total assistance Feeding Minimal assistance Chlorine Cells Operator Minimal assistance Med Delivery yes Wound Care Documentation and Therapy: Wound/Incision 04/14/24 Pressure Injury Sacrum (Active) Dressing Status Clean, dry & intact 04/26/25 0859 Number of days: 376 Wound/Incision 04/21/25 Pressure Injury Gluteal fold Left (Active) Site Assessment Unable to assess 04/25/251999 Odor Moderte 04/25/251999 Drainage Amount Unable to assess 04/25/251999 Treatments Other (Comment) 04/25/251999 Primary Dressing Absorptive 04/25/251999 Dressing Status Clean, dry & intact 04/26/25 0859 Number of days: 4 Elimination: Continence: Bowel: no Bladder: no Urinary Catheter: None Colostomy/Ileostomy/Ileal Conduit: None Date of Last BM: 04/28/2025 Intake/Output Summary (Last 24 hours) at 04/26/2025 1038 Last data filed at 04/26/2025 0900 Gross per 24 hour Intake 1247 ml Output 3975 ml Net -2728 ml I/O last 3 completed shifts: In: 3067 (34.6 mL/kg) [P.O.:450; I.V.:17 (0.2 mL/kg); IV Piggyback:2600] Out: 5075 (57.3 mL/kg) [Urine:5075 (1.6 mL/kg/hr)] Weight: 88.6 kg Safety Concerns: at risk for falls Impairments/Disabilities: paralysis - BLE Nutrition Therapy: Current Nutrition Therapy: Oral diet: carb control 4 carbs/meal (1800kcals/day) Routes of Feeding: oral Liquids: thin liquids Daily Fluid Restriction: no Last Modified Barium Swallow with Video (Video Swallowing Test): not done Treatments at the Time of Hospital Discharge: Respiratory Treatments: Oxygen Therapy: is not on home oxygen therapy. Ventilator: No ventilator support Rehab Therapies: physical therapy, occupational therapy, nursing, and aide Weight Bearing Status/Restrictions: no restriction Other Medical Equipment (for information only, NOT a DME order): wheelchair Other Treatments: Patient's personal belongings (please select all that are sent with patient): 2 bags of belongings RN SIGNATURE: MANAGEMENT/SOCIAL WORK SECTION Inpatient Status Date: 04/22/25 Discharging to Facility/ Agency Name: [facility] [address], [place] [address] [address] Tuna Purse Seiner/Asphalt Screed Operator signature: ICIAN SECTION Name: Anmol Reynolds Prognosis: good Condition at Discharge: stable Rehab Potential (if transferring to Rehab): fair Recommended Labs or Other Treatments After Discharge: CBC, CMP panel weekly till IV antibiotic is completed Discontinue PICC line after IV antibiotic is completed The individual is being admitted to a nursing facility directly from an [facility] or a unit of a [facility] that is not operated by or licensed by [facility] under section 5119.14 or 5160-3-15.1 5 The individual requires the level of services provided by a nursing facility for the condition for which he or she was treated in the hospital and, Physician Certification: I certify the above information and transfer of Anmol Reynolds is necessary for the continuing treatment of the diagnosis listed and that he requires prison facility for greater than 30 days. Update Admission H&P: No change in H&P PHYSICIAN SIGNATURE: documented in this encounter [facility] 04-28-2025 Progress note Formatting of t his note might be different from the original. Transport requested in Roundtrip in will call to [facility] per TCC. [facility] 04-28-2025 Note Care Management Prog ress Note Short Medical why still here: continues to be treated for osteomyelitis. ID following- awaiting sensitivities for final IV plan. Currently receiving IV unasyn and vanc. PICC Line intact for antic 6wk course. Planned Discharge Disposition: plan for return to [facility]- will NOT need auth. [employer] to place pt in roundtrip under will call for transport assist. Barriers/Today we still Wait: need opat/final plan for discharge. Length of Stay (Days): 6 GMLOS: 8.4 [facility] 04-28-2025 Progress note Formatting of t his note might be different from the original. Care Management Progress Note Short Medical why still here: continues to be treated for osteomyelitis. ID following- awaiting sensitivities for final IV plan. Currently receiving IV unasyn and vanc. PICC Line intact for antic 6wk course. Planned Discharge Disposition: plan for return to [facility]- will NOT need auth. [employer] to place pt in roundtrip under will call for transport assist. Barriers/Today we still Wait: need opat/final plan for discharge. Length of Stay (Days): 6 GMLOS: 8.4 [facility] 04-28-2025 Note Hospitalist Progress Note 04/28/2025 10:05 AM [phone]: Please page me for patient care issues. [phone]: Please page [facility] night Hospitalist for any issues. Subjective: Admit Date: 04/21/2025 PCP: Tab Dupont Room#: N4-455/[id number] A Interval History: Patient seen and examined 64-year-old male admitted following infected sacral wound from nursing facility. Workup during this admission showed CT scan of pelvis highly suspicious for osteomyelitis of left inferior pubic rami and sacrum/coccyx junction with erosive lucency as well as bone in contact with the area. Overlying locules of air and edema and wound present in soft tissue. Bladder wall thickening, consider cystitis. Blood culture was negative. Wound culture from left buttock positive for enterococcal, right buttock positive for MRSA. Patient had debridement of wound, bone biopsy done on 04/24/2025. Seen by infectious disease team, wound care team, patient on broad-spectrum of antibiotic. Patient also had mild hyponatremia. He had leukocytosis resolved. Patient had anemia, hemoglobin of 10.4. He also had DM with hyperglycemia, A1c 7.9. Patient denies any abdominal pain, chest pain, shortness of breath No nausea, vomiting No fever spike noted Blood pressure 105/60 Lab data's / Imaging studies reviewed Accu-Cheks reviewed Past medical history : Medical History[1] Adult diet Regular; 4 carb choices (60 gm/meal) @[id number]@ Medications: Continuous Meds[2] Scheduled Meds[3] LABS: CBC: Recent Labs 04/26/25 0039 04/27/25 0304 WBC 7.3 8.0 RBC 3.76* 3.78* HGB 11.0* 10.9* HCT 33.8* 34.0* MCV 89.9 89.9 RDW 14.8 14.9 PLT 386 363 BMP: Recent Labs 04/26/25 0039 04/27/25 0304 NA 136 136 K 4.0 4.0 CL 103 104 CO2 27 29 BUN 19 21 CREATININE 0.62* 0.64* GLUCOSE 155* 96 CALCIUM 8.5* 8.6* ANIONGAP 6 3 LIVER PROFILE:No results for input(s): "AST", "ALT", "BILITOT", "ALKPHOS", "PROT" in the last 72 hours. No lab exists for component: LABALBU PT/INR: No results for input(s): "PROTIME", "INR" in the last 72 hours. CARDIAC ENZYMES: No results for input(s): "TROPONINI" in the last 72 hours. Procalcitonin: No results found for: "PROCAL" @[email or web address]@ I reviewed: [x] laboratory results [x] radiographic results At the time of today's encounter. Pt was informed about the results. Objective: Vitals: BP 105/66 (BP Location: Right arm, Patient Position: Lying) Pulse 66 Temp 36.2 ?C (97.2 ?F) (Temporal) Resp 18 Ht 6' 3" (1.905 m) Wt 195 lb 6.4 oz (88.6 kg) SpO2 98% BMI 24.42 kg/m? Pulse Ox: SpO2 Av % Min: 98 % Max: 98 % Supplemental O2: General appearance: No apparent distress, HEENT: Eyes: Pallor noted Cardiovascular: S1S2 heard, RRR Respiratory: Clear to auscultation bilaterally anteriorly Abdomen: Soft, non-tender, non-distended, no mass palpable with normal bowel sounds, chronic indwelling Santana catheter noted. Neurology- Awake alert, answering questions, appeared comfortable Extremity- peripheral edema both lower extremities Left upper extremity single-lumen PICC line noted. Assessment Acute problems--- Osteomyelitis of sacrum, inferior left pubic rami and sacrum/coccyx junction, status post debridement of left ischial wound/bone biopsy done on 04/24/2025, right buttock wound culture positive for MRSA and moderate anaerobic gram-negative bacilli, left buttock wound culture positive for Enterococcus raffinosus, Clostridium ramosum, Proteus Mirabilis Hyponatremia, resolved Leukocytosis on admission--- resolved DM with hyperglycemia Sacrum stage IV pressure injury, POA Left ischium stage IV pressure injury, POA Debility Iron deficiency anemia Chronic issue--- Paraplegia Hyperlipidemia Depression Peripheral neuropathy DM History of chronic indwelling Santana catheter Anemia Peripheral neuropathy Gastroesophageal flux disease Plan Continue antibiotics per infectious disease team--Proteus sensitivity pending--final antibiotic recommendation pending Seen by general surgery team, recommendation noted Continue high-dose sliding scale insulin, Lantus 28 units daily Wound care team following. PT recommended prison facility Continue IV Venofer as ordered for FABIANA Hold ferrous sulfate On Eliquis for DVT prophylaxis Continue rest of medication as ordered BMP panel in a.m. Patient was informed about all work up and treatment plan Discussed with nursing staff and TCC regarding management/ discharge plan. Patient's brother Ronald was informed about all workup treatment plan on 04/26/2025 Toxic drug monitoring/narrow therapeutic index drug monitoring : # Drug name : Insulin, vancomycin # Route administered : Subcu, IV # Method of monitoring : Accu-Chek, vancomycin level Extended Emergency Contact Information Primary Emergency Contact: Ronald Reynolds Mobile Relation (more content not included)... [facility] 04-28-2025 History of Present illness Narrative Hospitalist Progress Note 04/28/2025 10:05 AM [phone]: Please page me for patient care issues. [phone]: Please page [facility] Hospitalist for any issues. Subjective: Admit Date: 04/21/2025 PCP: Tab Dupont Room#: N4-455/N4-455 A Interval History: Patient seen and examined 64-year-old male admitted following infected sacral wound from nursing facility. Workup during this admission showed CT scan of pelvis highly suspicious for osteomyelitis of left inferior pubic rami and sacrum/coccyx junction with erosive lucency as well as bone in contact with the area. Overlying locules of air and edema and wound present in soft tissue. Bladder wall thickening, consider cystitis. Blood culture was negative. Wound culture from left buttock positive for enterococcal, right buttock positive for MRSA. Patient had debridement of wound, bone biopsy done on 04/24/2025. Seen by infectious disease team, wound care team, patient on broad-spectrum of antibiotic. Patient also had mild hyponatremia. He had leukocytosis resolved. Patient had anemia, hemoglobin of 10.4. He also had DM with hyperglycemia, A1c 7.9. Patient denies any abdominal pain, chest pain, shortness of breath No nausea, vomiting No fever spike noted Blood pressure 105/60 Lab data's / Imaging studies reviewed Accu-Cheks reviewed Past medical history : Medical History[1] Adult diet Regular; 4 carb choices (60 gm/meal) @[id number]@ Medications: Continuous Meds[2] Scheduled Meds[3] LABS: CBC: Recent Labs 04/26/25 0039 04/27/25 0304 WBC 7.3 8.0 RBC 3.76* 3.78* HGB 11.0* 10.9* HCT 33.8* 34.0* MCV 89.9 89.9 RDW 14.8 14.9 PLT 386 363 BMP: Recent Labs 04/26/25 0039 04/27/25 0304 NA 136 136 K 4.0 4.0 CL 103 104 CO2 27 29 BUN 19 21 CREATININE 0.62* 0.64* GLUCOSE 155* 96 CALCIUM 8.5* 8.6* ANIONGAP 6 3 LIVER PROFILE:No results for input(s): "AST", "ALT", "BILITOT", "ALKPHOS", "PROT" in the last 72 hours. No lab exists for component: LABALBU PT/INR: No results for input(s): "PROTIME", "INR" in the last 72 hours. CARDIAC ENZYMES: No results for input(s): "TROPONINI" in the last 72 hours. Procalcitonin: No results found for: "PROCAL" @RISRSLTSPECIALTY@ I reviewed: [x] laboratory results [x] radiographic results At the time of today's encounter. Pt was informed about the results. Objective: Vitals: BP 105/66 (BP Location: Right arm, Patient Position: Lying) Pulse 66 Temp 36.2 C (97.2 F) (Temporal) Resp 18 Ht 6' 3" (1.905 m) Wt 195 lb 6.4 oz (88.6 kg) SpO2 98% BMI 24.42 kg/m Pulse Ox: SpO2 Av % Min: 98 % Max: 98 % Supplemental O2: General appearance: No apparent distress, HEENT: Eyes: Pallor noted Cardiovascular: S1S2 heard, RRR Respiratory: Clear to auscultation bilaterally anteriorly Abdomen: Soft, non-tender, non-distended, no mass palpable with normal bowel sounds, chronic indwelling Santana catheter noted. Neurology- Awake alert, answering questions, appeared comfortable Extremity- peripheral edema both lower extremities Left upper extremity single-lumen PICC line noted. Assessment Acute problems--- Osteomyelitis of sacrum, inferior left pubic rami and sacrum/coccyx junction, status post debridement of left ischial wound/bone biopsy done on 04/24/2025, right buttock wound culture positive for MRSA and moderate anaerobic gram-negative bacilli, left buttock wound culture positive for Enterococcus raffinosus, Clostridium ramosum, Proteus Mirabilis Hyponatremia, resolved Leukocytosis on admission--- resolved DM with hyperglycemia Sacrum stage IV pressure injury, POA Left ischium stage IV pressure injury, POA Debility Iron deficiency anemia Chronic issue--- Paraplegia Hyperlipidemia Depression Peripheral neuropathy DM History of chronic indwelling Santana catheter Anemia Peripheral neuropathy Gastroesophageal flux disease Plan Continue antibiotics per infectious disease team--Proteus sensitivity pending--final antibiotic recommendation pending Seen by general surgery team, recommendation noted Continue high-dose sliding scale insulin, Lantus 28 units daily Wound care team following. PT recommended prison facility Continue IV Venofer as ordered for FABIANA Hold ferrous sulfate On Eliquis for DVT prophylaxis Continue rest of medication as ordered BMP panel in a.m. Patient was informed about all work up and treatment plan Discussed with nursing staff and TCC regarding management/ discharge plan. Patient's brother Ronald was informed about all workup treatment plan on 04/26/2025 Toxic drug monitoring/narrow therapeutic index drug monitoring : # Drug name : Insulin, vancomycin # Route administered : Subcu, IV # Method of monitoring : Accu-Chek, vancomycin level Extended Emergency Contact Information Primary Emergency Contact: Ronald Reynolds Mobile Relation: Sibling Secondary Emergency Contact: SUMI REYNOLDS Mobile Relation: Daughter Advance Directive: Full Code Discharge planning: Anticipated discharge in 1 day NOTE: This report was transcribed using voice recognition software. Every effort was made to ensure accuracy; however, inadvertent computerized investment sales assistant errors may be present. Berhane Moreno MD Division of Hospitalist Medicine [employer] [facility] [employer] PAGER: Epic chat [1] Past Medical History: Diagnosis Date Abnormal posture Abscess, perineum Anemia BPH (benign prostatic hyperplasia) Chronic back pain Hematuria Hip sprain Hyperlipidemia Hypertension Major depressive disorder, single episode, unspecified MRSA (methicillin resistant staph aureus) culture positive spine 2021 Muscle wasting and atrophy, not elsewhere classified, left lower leg Muscle weakness (generalized) Neuropathy Obstructive and reflux uropathy, unspecified Osteoarthritis Other abnormalities of gait and mobility Other reduced mobility Paraplegia (HCC) Sciatica Spinal stenosis of lumbar region with neurogenic claudication Type 2 diabetes mellitus without complication (HCC) Urinary calculus, unspecified UTI (urinary tract infection) [2] [3] ampicillin-sulbactam, 3,000 mg, IntraVENous, q6h apixaban, 5 mg, Oral, BID chlorhexidine, , Topical, Daily DULoxetine, 30 mg, Oral, Daily [Held by provider] ferrous sulfate, 325 mg, Oral, Daily with breakfast insulin glargine, 28 Units, SubCUTAneous, q AM insulin lispro, 0-18 Units, SubCUTAneous, TID WC insulin lispro, 0-18 Units, SubCUTAneous, Nightly iron sucrose, 200 mg, IntraVENous, q24h midodrine, 10 mg, Oral, TID mirtazapine, 7.5 mg, Oral, Nightly oxyCODONE, 15 mg, Oral, 4x daily polyethylene glycol (PEG) 3350, 17 g, Oral, BID pregabalin, 200 mg, Oral, TID senna-docusate sodium, 2 tablet, Oral, BID sodium chloride 0.9%, 10 mL, IntraCATHeter, q12h tamsulosin, 0.4 mg, Oral, Daily vancomycin, 1,500 mg, IntraVENous, q12h Pharmacy to Dose Vancomycin - Progress Note Lab Results Component Value Date CREATININE 0.64 (L) 04/27/2025 BUN 21 04/27/2025 WBC 8.0 04/27/2025 VANCORANDOM 12.3 (L) 04/16/2024 VANCOTROUGH 12.0 04/24/2025 Doses, serum creatinine, and vancomycin levels interfaced automatically to Rabbit TV and data has been analyzed and interpreted. Infectious Diagnosis: SSTI Est CrCl: >120 mL/min (Cockcroft-Gault) Assessment: Current regimen vancomycin 1500 mg every 12 hours (16.9 mg/kg) Predicted AUC = 569 mg/L*hr (goal 400-600 mg/L*hr) PAUC = >95% (probability that AUC is >400 mg/L*hr) Pconc = <5% (probability that Ctrough is above 20 mcg/mL (toxicity)) Plan: Is the current dose therapeutic? [x] Yes - obtain next level on 04/29 unless predicted AUC is sub-/supra-therapeutic or change in serum creatinine. [] No - Trend serum creatinine. Trend AUC using Bayesian Modeling. Orders placed. DATE: 04/28/25 TIME: 7:21 AM Lauryn Begum PharmD Clinical Pharmacist Available via Secure Chat Hospitalist Progress Note 04/27/2025 9:04 AM [phone]: Please page me for patient care issues. [phone]: Please page [facility] night Hospitalist for any issues. Subjective: Admit Date: 04/21/2025 PCP: Tab Dupont Room#: [id number]/[id number] A Interval History: Patient seen and examined 64-year-old male admitted following infected sacral wound from nursing facility. Workup during this admission showed CT scan of pelvis highly suspicious for osteomyelitis of left inferior pubic rami and sacrum/coccyx junction with erosive lucency as well as bone in contact with the area. Overlying locules of air and edema and wound present in soft tissue. Bladder wall thickening, consider cystitis. Blood culture was negative. Wound culture from left buttock positive for enterococcal, right buttock positive for MRSA. Patient had debridement of wound, bone biopsy done on 04/24/2025. Seen by infectious disease team, wound care team, patient on broad-spectrum of antibiotic. Patient also had mild hyponatremia. He had leukocytosis resolved. Patient had anemia, hemoglobin of 10.4. He also had DM with hyperglycemia, A1c 7.9. Discussed with nursing staff, no new event overnight Patient denies any chest pain, abdominal pain, nausea, vomiting Having regular bowel movement No fever Lab data's / Imaging studies reviewed Accu-Cheks reviewed Blood culture negative Potassium 4, creatinine 0.6, hemoglobin 10.9 Past medical history : Medical History[1] Adult diet Regular; 4 carb choices (60 gm/meal) @[id number]@ Medications: Continuous Meds[2] Scheduled Meds[3] LABS: CBC: Recent Labs 04/25/256 04/26/25 0039 04/27/25 0304 WBC 9.5 7.3 8.0 RBC 3.62* 3.76* 3.78* HGB 10.4* 11.0* 10.9* HCT 32.6* 33.8* 34.0* MCV 90.1 89.9 89.9 RDW 14.8 14.8 14.9 PLT 421 386 363 BMP: Recent Labs 04/25/255504/26/25 0039 04/27/25 0304 NA 134* 136 136 K 4.3 4.0 4.0 CL 101 103 104 CO2 26 27 29 BUN 14 19 21 CREATININE 0.73 0.62* 0.64* GLUCOSE 213* 155* 96 CALCIUM 8.2* 8.5* 8.6* ANIONGAP 7 6 3 LIVER PROFILE:No results for input(s): "AST", "ALT", "BILITOT", "ALKPHOS", "PROT" in the last 72 hours. No lab exists for component: LABALBU PT/INR: No results for input(s): "PROTIME", "INR" in the last 72 hours. CARDIAC ENZYMES: No results for input(s): "TROPONINI" in the last 72 hours. Procalcitonin: No results found for: "PROCAL" @RISRSLTSPECIALTY@ I reviewed: [x] laboratory results [x] radiographic results At the time of today's encounter. Pt was informed about the results. Objective: Vitals: BP 97/55 (BP Location: Right arm, Patient Position: Lying) Pulse 67 Temp 36.2 C (97.2 F) (Temporal) Resp 18 Ht 6' 3" (1.905 m) Wt 195 lb 6.4 oz (88.6 kg) SpO2 98% BMI 24.42 kg/m Pulse Ox: SpO2 Av % Min: 96 % Max: 98 % Supplemental O2: General appearance: No apparent distress, HEENT: Eyes: Pallor noted Cardiovascular: S1S2 heard, RRR Respiratory: Clear to auscultation bilaterally anteriorly Abdomen: Soft, non-tender, non-distended, no mass palpable with normal bowel sounds, chronic indwelling Santana catheter noted. Neurology- Awake alert, answering questions Extremity- peripheral edema both lower extremities Left upper extremity single-lumen PICC line noted. Assessment Acute problems--- Osteomyelitis of sacrum, inferior left pubic rami and sacrum/coccyx junction, status post debridement of left ischial wound/bone biopsy done on 04/24/2025, right buttock wound culture positive for MRSA and moderate anaerobic gram-negative bacilli, left buttock wound culture positive for Enterococcus raffinosus, Clostridium ramosum Hyponatremia, resolved Leukocytosis on admission--- resolved DM with hyperglycemia Sacrum stage IV pressure injury, POA Left ischium stage IV pressure injury, POA Debility Iron deficiency anemia Chronic issue--- Paraplegia Hyperlipidemia Depression Peripheral neuropathy DM History of chronic indwelling Santana catheter Anemia Peripheral neuropathy Gastroesophageal flux disease Plan Continue antibiotics per infectious disease team Seen by general surgery team, recommendation noted Continue high-dose sliding scale insulin, increase Lantus dose to 28 units daily Wound care team following. PT recommended [facility] Continue IV Venofer as ordered for FABIANA Hold ferrous sulfate On Eliquis for DVT prophylaxis Continue rest of medication as ordered Patient was informed about all work up and treatment plan Discussed with nursing staff and TCC regarding management/ discharge plan. Patient's brother Ronald was informed about all workup treatment plan on 04/26/2025 Toxic drug monitoring/narrow therapeutic index drug monitoring : # Drug name : Insulin, vancomycin # Route administered : Subcu, IV # Method of monitoring : Accu-Chek, vancomycin level Extended Emergency Contact Information Primary Emergency Contact: Ronald Reynolds Mobile Relation: Sibling Secondary Emergency Contact: SUMI REYNOLDS Mobile Relation: Daughter Advance Directive: Full Code Discharge planning: Anticipated discharge in 2 days NOTE: This report was transcribed using voice recognition software. Every effort was made to ensure accuracy; however, inadvertent computerized investment sales assistant errors may be present. Berhane Moreno MD Division of Hospitalist Medicine In[employer] PAGER: Epic chat [1] Past Medical History: Diagnosis Date Abnormal posture Abscess, perineum Anemia BPH (benign prostatic hyperplasia) Chronic back pain Hematuria Hip sprain Hyperlipidemia Hypertension Major depressive disorder, single episode, unspecified MRSA (methicillin resistant staph aureus) culture positive spine 2021 Muscle wasting and atrophy, not elsewhere classified, left lower leg Muscle weakness (generalized) Neuropathy Obstructive and reflux uropathy, unspecified Osteoarthritis Other abnormalities of gait and mobility Other reduced mobility Paraplegia (HCC) Sciatica Spinal stenosis of lumbar region with neurogenic claudication Type 2 diabetes mellitus without complication (HCC) Urinary calculus, unspecified UTI (urinary tract infection) [2] [3] ampicillin-sulbactam, 3,000 mg, IntraVENous, q6h apixaban, 5 mg, Oral, BID chlorhexidine, , Topical, Daily DULoxetine, 30 mg, Oral, Daily [Held by provider] ferrous sulfate, 325 mg, Oral, Daily with breakfast insulin glargine, 28 Units, SubCUTAneous, q AM insulin lispro, 0-18 Units, SubCUTAneous, TID WC insulin lispro, 0-18 Units, SubCUTAneous, Nightly iron sucrose, 200 mg, IntraVENous, q24h midodrine, 10 mg, Oral, TID mirtazapine, 7.5 mg, Oral, Nightly oxyCODONE, 15 mg, Oral, 4x daily polyethylene glycol (PEG) 3350, 17 g, Oral, BID pregabalin, 200 mg, Oral, TID senna-docusate sodium, 2 tablet, Oral, BID sodium chloride 0.9%, 10 mL, IntraCATHeter, q12h tamsulosin, 0.4 mg, Oral, Daily vancomycin, 1,500 mg, IntraVENous, q12h Pharmacy to Dose Vancomycin - Progress Note Lab Results Component Value Date CREATININE 0.64 (L) 04/27/2025 BUN 21 04/27/2025 WBC 8.0 04/27/2025 VANCORANDOM 12.3 (L) 04/16/2024 VANCOTROUGH 12.0 04/24/2025 Doses, serum creatinine, and vancomycin levels interfaced automatically to Rabbit TV and data has been analyzed and interpreted. Infectious Diagnosis: SSTI Est CrCl: >120 mL/min (Cockcroft-Gault) Assessment: Current regimen vancomycin 1500 mg every 12 hours (16.9 mg/kg) Predicted AUC = 569 mg/L*hr (goal 400-600 mg/L*hr) PAUC = >95% (probability that AUC is >400 mg/L*hr) Pconc = <5% (probability that Ctrough is above 20 mcg/mL (toxicity)) Plan: Is the current dose therapeutic? [x] Yes - obtain next level on 04/29 unless predicted AUC is sub-/supra-therapeutic or change in serum creatinine. Trend serum creatinine. Trend AUC using Bayesian Modeling. Orders placed. DATE: 04/27/25 TIME: 7:33 AM Brunilda Gomez PharmD Clinical Pharmacist Available via Secure Chat Hospitalist Progress Note 04/26/2025 9:58 AM [phone]: Please page me for patient care issues. [phone]: Please page [facility] night Hospitalist for any issues. Subjective: Admit Date: 04/21/2025 PCP: Tab Dupont Room#: [id number]/[id number] A Interval History: Patient seen and examined 64-year-old male admitted following infected sacral wound from nursing facility. Workup during this admission showed CT scan of pelvis highly suspicious for osteomyelitis of left inferior pubic rami and sacrum/coccyx junction with erosive lucency as well as bone in contact with the area. Overlying locules of air and edema and wound present in soft tissue. Bladder wall thickening, consider cystitis. Blood culture was negative. Wound culture from left buttock positive for enterococcal, right buttock positive for MRSA. Patient had debridement of wound, bone biopsy done on 04/24/2025. Seen by infectious disease team, wound care team, patient on broad-spectrum of antibiotic. Patient also had mild hyponatremia. He had leukocytosis resolved. Patient had anemia, hemoglobin of 10.4. He also had DM with hyperglycemia, A1c 7.9. Patient had large bowel movement today Denies any abdominal pain, chest pain, shortness of breath No nausea, vomiting, fever spike Blood pressure readings reviewed Discussed with nursing staff, no new event overnight Lab data's / Imaging studies reviewed Accu-Cheks reviewed Blood culture negative Potassium 4, creatinine 0.6, hemoglobin 11, iron profile 60 Past medical history : Medical History[1] Adult diet Regular; 4 carb choices (60 gm/meal) @[id number]@ Medications: Continuous Meds[2] Scheduled Meds[3] LABS: CBC: Recent Labs 04/24/2520504/25/256 04/26/25 0039 WBC 9.3 9.5 7.3 RBC 3.68* 3.62* 3.76* HGB 10.6* 10.4* 11.0* HCT 32.8* 32.6* 33.8* MCV 89.1 90.1 89.9 RDW 14.9 14.8 14.8 PLT 367 421 386 BMP: Recent Labs 04/24/2520504/25/255504/26/25 0039 NA 136 134* 136 K 4.0 4.3 4.0 CL 101 101 103 CO2 27 26 27 BUN 7* 14 19 CREATININE 0.59* 0.73 0.62* GLUCOSE 113 213* 155* CALCIUM 8.4* 8.2* 8.5* ANIONGAP 8 7 6 LIVER PROFILE:No results for input(s): "AST", "ALT", "BILITOT", "ALKPHOS", "PROT" in the last 72 hours. No lab exists for component: LABALBU PT/INR: No results for input(s): "PROTIME", "INR" in the last 72 hours. CARDIAC ENZYMES: No results for input(s): "TROPONINI" in the last 72 hours. Procalcitonin: No results found for: "PROCAL" @RISRSLTSPECIALTY@ I reviewed: [x] laboratory results [x] radiographic results At the time of today's encounter. Pt was informed about the results. Objective: Vitals: BP 100/56 (BP Location: Right arm, Patient Position: Lying) Pulse 67 Temp 36.6 C (97.9 F) (Temporal) Resp 20 Ht 6' 3" (1.905 m) Wt 195 lb 6.4 oz (88.6 kg) SpO2 95% BMI 24.42 kg/m Pulse Ox: SpO2 Av.5 % Min: 95 % Max: 96 % Supplemental O2: General appearance: No apparent distress, HEENT: Eyes: Pallor noted Oral: Tongue is semi-moist Cardiovascular: S1S2 heard, RRR Respiratory: Clear to auscultation bilaterally anteriorly Abdomen: Soft, non-tender, non-distended, no mass palpable with normal bowel sounds, chronic indwelling Santana catheter noted. Neurology- Awake alert, answering questions Extremity- peripheral edema both lower extremities Left upper extremity single-lumen PICC line noted Assessment Acute problems--- Osteomyelitis of sacrum, inferior left pubic rami and sacrum/coccyx junction, status post debridement of left ischial wound/bone biopsy done on 04/24/2025, right buttock wound culture positive for MRSA, left buttock wound culture positive for Enterococcus Hyponatremia, resolved Leukocytosis on admission resolved DM with hyperglycemia Sacrum stage IV pressure injury, POA Left ischium stage IV pressure injury, POA Debility Iron deficiency anemia Chronic issue--- Paraplegia Hyperlipidemia Depression Peripheral neuropathy DM History of chronic indwelling Santana catheter Anemia Peripheral neuropathy Gastroesophageal flux disease Plan Continue antibiotics per infectious disease team Seen by general surgery team, recommendation noted Continue high-dose sliding scale insulin, Lantus to 25 units daily Wound care team following. PT recommended [facility] facility IV Venofer for iron deficiency anemia ordered x 2 dose Hold ferrous sulfate Discussed with rn neurosurgical by epic chat--okay to restart anticoagulation today Continue rest of medication as ordered Patient was informed about all work up and treatment plan Discussed with nursing staff and TCC regarding management/ discharge plan. Patient's brother Ronald was informed about all workup treatment plan on 04/26/2025 Toxic drug monitoring/narrow therapeutic index drug monitoring : # Drug name : Insulin, vancomycin # Route administered : Subcu, IV # Method of monitoring : Accu-Chek, vancomycin level Extended Emergency Contact Information Primary Emergency Contact: Ronald Reynolds Mobile Relation: Sibling Secondary Emergency Contact: SUMI REYNOLDS Mobile Relation: Daughter Advance Directive: Full Code Discharge planning: Anticipated discharge in 2 to 3 days NOTE: This report was transcribed using voice recognition software. Every effort was made to ensure accuracy; however, inadvertent computerized investment sales assistant errors may be present. Berhane Moreno MD Division of Hospitalist Medicine Acute Care [facility] PAGER: Epic chat [1] Past Medical History: Diagnosis Date Abnormal posture Abscess, perineum Anemia BPH (benign prostatic hyperplasia) Chronic back pain Hematuria Hip sprain Hyperlipidemia Hypertension Major depressive disorder, single episode, unspecified MRSA (methicillin resistant staph aureus) culture positive spine 2021 Muscle wasting and atrophy, not elsewhere classified, left lower leg Muscle weakness (generalized) Neuropathy Obstructive and reflux uropathy, unspecified Osteoarthritis Other abnormalities of gait and mobility Other reduced mobility Paraplegia (HCC) Sciatica Spinal stenosis of lumbar region with neurogenic claudication Type 2 diabetes mellitus without complication (HCC) Urinary calculus, unspecified UTI (urinary tract infection) [2] [3] apixaban, 5 mg, Oral, BID chlorhexidine, , Topical, Daily DULoxetine, 30 mg, Oral, Daily [Held by provider] ferrous sulfate, 325 mg, Oral, Daily with breakfast insulin glargine, 25 Units, SubCUTAneous, q AM insulin lispro, 0-18 Units, SubCUTAneous, TID WC insulin lispro, 0-18 Units, SubCUTAneous, Nightly iron sucrose, 200 mg, IntraVENous, q24h meropenem, 2,000 mg, IntraVENous, q8h midodrine, 10 mg, Oral, TID mirtazapine, 7.5 mg, Oral, Nightly oxyCODONE, 15 mg, Oral, 4x daily polyethylene glycol (PEG) 3350, 17 g, Oral, BID pregabalin, 200 mg, Oral, TID senna-docusate sodium, 2 tablet, Oral, BID sodium chloride 0.9%, 10 mL, IntraCATHeter, q12h tamsulosin, 0.4 mg, Oral, Daily vancomycin, 1,500 mg, IntraVENous, q12h Pharmacy to Dose Vancomycin - Progress Note Lab Results Component Value Date CREATININE 0.62 (L) 04/26/2025 BUN 19 04/26/2025 WBC 7.3 04/26/2025 VANCORANDOM 12.3 (L) 04/16/2024 VANCOTROUGH 12.0 04/24/2025 Doses, serum creatinine, and vancomycin levels interfaced automatically to Rabbit TV and data has been analyzed and interpreted. Infectious Diagnosis: SSTI Est CrCl: >120 mL/min (Cockcroft-Gault) Assessment: Current regimen vancomycin 1500 mg every 12 hours (16.9 mg/kg) Predicted AUC = 564 mg/L*hr (goal 400-600 mg/L*hr) PAUC = >95%% (probability that AUC is >400 mg/L*hr) Pconc = <5%% (probability that Ctrough is above 20 mcg/mL (toxicity)) Plan: Is the current dose therapeutic? [x] Yes - obtain next level on 04/29/25 unless predicted AUC is sub-/supra-therapeutic or change in serum creatinine. Trend serum creatinine. Trend AUC using Bayesian Modeling. Orders placed. DATE: 04/26/25 TIME: 8:55 AM Brunilda Gomez PharmD Clinical Pharmacist Available via Secure Chat Hospitalist Progress Note 04/25/2025 5:34 PM [phone]: Please page me for patient care issues. [phone]: Please page [facility] night Hospitalist for any issues. Subjective: Admit Date: 04/21/2025 PCP: Tab Dupont Room#: [id number]/[id number] B Interval History: Patient seen and examined 64-year-old male admitted following infected sacral wound from nursing facility. Workup during this admission showed CT scan of pelvis highly suspicious for osteomyelitis of left inferior pubic rami and sacrum/coccyx junction with erosive lucency as well as bone in contact with the area. Overlying locules of air and edema and wound present in soft tissue. Bladder wall thickening, consider cystitis. Blood culture was negative. Wound culture from left buttock positive for enterococcal, right buttock positive for MRSA. Patient had debridement of wound, bone biopsy done on 04/24/2025. Seen by infectious disease team, wound care team, patient on broad-spectrum of antibiotic. Patient also had mild hyponatremia. He had leukocytosis resolved. Patient had anemia, hemoglobin of 10.4. He also had DM with hyperglycemia, A1c 7.9. Denies any chest pain, shortness of breath, cough No nausea, vomiting, abdominal pain No fever spike noted Lab data's / Imaging studies reviewed Sodium 134, creatinine 0.7, lactic acid 1.1, hemoglobin 10.4 Accu-Cheks reviewed Blood culture negative Past medical history : Medical History[1] Adult diet Regular; 4 carb choices (60 gm/meal) @[id number]@ Medications: Continuous Meds[2] Scheduled Meds[3] LABS: CBC: Recent Labs 04/23/25 0013 04/24/25 0206 04/25/25 0056 WBC 9.4 9.3 9.5 RBC 3.47* 3.68* 3.62* HGB 9.9* 10.6* 10.4* HCT 30.7* 32.8* 32.6* MCV 88.5 89.1 90.1 RDW 14.9 14.9 14.8 PLT 352 367 421 BMP: Recent Labs 04/23/25 0013 04/24/25 0206 04/25/25 0056 NA 133* 136 134* K 3.8 4.0 4.3 CL 105 101 101 CO2 21* 27 26 BUN 8* 7* 14 CREATININE 0.54* 0.59* 0.73 GLUCOSE 133* 113 213* CALCIUM 8.1* 8.4* 8.2* ANIONGAP 7 8 7 LIVER PROFILE:No results for input(s): "AST", "ALT", "BILITOT", "ALKPHOS", "PROT" in the last 72 hours. No lab exists for component: LABALBU PT/INR: No results for input(s): "PROTIME", "INR" in the last 72 hours. CARDIAC ENZYMES: No results for input(s): "TROPONINI" in the last 72 hours. Procalcitonin: No results found for: "PROCAL" @RISRSLTSPECIALTY@ I reviewed: [x] laboratory results [x] radiographic results At the time of today's encounter. Pt was informed about the results. Objective: Vitals: BP 113/66 (BP Location: Right arm, Patient Position: Sitting) Pulse 69 Temp 36.1 C (96.9 F) (Temporal) Resp 21 Ht 6' 3" (1.905 m) Wt 195 lb 6.4 oz (88.6 kg) SpO2 97% BMI 24.42 kg/m Pulse Ox: SpO2 Av % Min: 95 % Max: 97 % Supplemental O2: General appearance: No apparent distress, HEENT: Eyes: Pallor noted Oral: Tongue is semi-moist Cardiovascular: S1S2 heard, RRR Respiratory: Clear to auscultation bilaterally anteriorly Abdomen: Soft, non-tender, non-distended, no mass palpable with normal bowel sounds, chronic indwelling Santana catheter noted. Neurology- Awake alert, answering questions Extremity- peripheral edema both lower extremities Assessment Acute problems-- Osteomyelitis of sacrum, inferior left pubic rami and sacrum/coccyx junction, status post debridement of left ischial wound/bone biopsy done on 04/24/2025, right buttock wound culture positive for MRSA, left buttock wound culture positive for Enterococcus Hyponatremia Leukocytosis on admission resolved DM with hyperglycemia Sacrum stage IV pressure injury, POA Left ischium stage IV pressure injury, POA Debility Anemia Chronic issue-- Paraplegia Hyperlipidemia Depression Peripheral neuropathy DM History of chronic indwelling Santana catheter Anemia Peripheral neuropathy Gastroesophageal flux disease Plan Continue antibiotics per infectious disease team Seen by general surgery team, recommendation noted Change diet to ADA 1800 diet Continue high-dose sliding scale insulin, increase dose of Lantus to 25 units daily Wound care team following PT recommended prison facility Check iron profile Patient can be restarted back on anticoagulation starting 04/26/2025. Continue rest of medication as ordered Labs ordered for AM Patient was informed about all work up and treatment plan Discussed with nursing staff and TCC regarding management/ discharge plan. Toxic drug monitoring/narrow therapeutic index drug monitoring : # Drug name : Insulin, vancomycin # Route administered : Subcu, IV # Method of monitoring : Accu-Chek, vancomycin level Extended Emergency Contact Information Primary Emergency Contact: Ronald Reynolds Mobile Relation: Sibling Secondary Emergency Contact: SUMI REYNOLDS Mobile Relation: Daughter Advance Directive: Full Code Discharge planning: Anticipated discharge in 2 to 3 days NOTE: This report was transcribed using voice recognition software. Every effort was made to ensure accuracy; however, inadvertent computerized investment sales assistant errors may be present. Berhane Moreno MD Division of Hospitalist Medicine [facility] PAGER: Epic chat [1] Past Medical History: Diagnosis Date Abnormal posture Abscess, perineum Anemia BPH (benign prostatic hyperplasia) Chronic back pain Hematuria Hip sprain Hyperlipidemia Hypertension Major depressive disorder, single episode, unspecified MRSA (methicillin resistant staph aureus) culture positive spine 2021 Muscle wasting and atrophy, not elsewhere classified, left lower leg Muscle weakness (generalized) Neuropathy Obstructive and reflux uropathy, unspecified Osteoarthritis Other abnormalities of gait and mobility Other reduced mobility Paraplegia (HCC) Sciatica Spinal stenosis of lumbar region with neurogenic claudication Type 2 diabetes mellitus without complication (HCC) Urinary calculus, unspecified UTI (urinary tract infection) [2] [3] [Held by provider] apixaban, 5 mg, Oral, BID chlorhexidine, , Topical, Daily DULoxetine, 30 mg, Oral, Daily ferrous sulfate, 325 mg, Oral, Daily with breakfast [START ON 04/26/2025] insulin glargine, 25 Units, SubCUTAneous, q AM insulin lispro, 0-18 Units, SubCUTAneous, TID WC insulin lispro, 0-18 Units, SubCUTAneous, Nightly meropenem, 2,000 mg, IntraVENous, q8h midodrine, 10 mg, Oral, TID mirtazapine, 7.5 mg, Oral, Nightly oxyCODONE, 15 mg, Oral, 4x daily polyethylene glycol (PEG) 3350, 17 g, Oral, BID pregabalin, 200 mg, Oral, TID senna-docusate sodium, 2 tablet, Oral, BID sodium chloride 0.9%, 10 mL, IntraCATHeter, q12h tamsulosin, 0.4 mg, Oral, Daily vancomycin, 1,500 mg, IntraVENous, q12h [facility] - Infectious Diseases Attending Progress Note Subjective: Khalida cute events POD#1 s/p I+D of L ischial decub ulcer down to bone- cultures obtained. Insensate, denies pain to butttocks. No cough or SOB. Objective: Vitals: Patient Vitals for the past 24 hrs: BP Temp Temp src Pulse Resp SpO2 04/25/25 0800 -- -- -- 69 -- -- 04/25/25 0755 113/66 36.1 C (96.9 F) Temporal 72 -- 97 % 04/24/252024 98/63 36.6 C (97.8 F) Temporal 78 21 95 % Physical Exam Vitals reviewed. Constitutional: General: He is not in acute distress. Appearance: Normal appearance. He is not ill-appearing. Pulmonary: Effort: Pulmonary effort is normal. Musculoskeletal: General: Signs of injury (wound not examined) present. Skin: Coloration: Skin is not jaundiced. Findings: No erythema or rash. Neurological: Mental Status: He is alert. Motor: Weakness (paraplegia unchanged) present. Psychiatric: Mood and Affect: Mood normal. Thought Content: Thought content normal. Labs: Lab Results Component Value Date/Time NA 134 (L) 04/25/202555 K 4.3 04/25/202555 CL 101 04/25/2025 0056 CO2 26 04/25/20256 BUN 14 04/25/202555 CREATININE 0.73 04/25/2025 005 CREATININE 0.57 (L) 10/25/2020 0457 GLUCOSE 213 (H) 04/25/202555 CALCIUM 8.2 (L) 04/25/2025 0056 PROT 7.6 04/21/2025 2257 BILITOT 0.5 04/21/2025 225 ALKPHOS 116 04/21/2025 225 AST 13 04/21/2025 225 ALT 6 04/21/2025 225 PROCAL 27.06 (H) 04/14/2024 2318 Lab Results Component Value Date/Time WBC 9.5 04/25/202555 HGB 10.4 (L) 04/25/202555 HGB 13.7 04/14/2024 1730 HCT 32.6 (L) 04/25/2025 0056 PLT 421 04/25/2025 0056 LYMPHOPCT 20.7 04/25/2025 0056 LYMPHOPCT 32 04/20/2024 0359 MONOPCT 9.3 04/25/2025 005 MONOPCT 10 04/20/2024 0359 BASOPCT 0.4 04/25/202555 BASOPCT 1 04/19/2024 0428 NEUTROABS 6.5 04/25/2025 005 Micro: 04/24 tissue cx: E raffinosus so far 04/21 Wound cx: MRSA, anaerobic GNR, not B fragilis Lines: PIV Radiography/Echo/Other: reviewed Antimicrobials, Start/End Dates: Vancomycin Cefepime to Meropenem Impression: 64 M admitted from [facility] with: Worsening decubitus ulcer , concerning for wound infection, with imaging c/w acute OM- s/p I+D yesterday- confirmed acute OM to L ischial ulcer.. Agree with broad spectrum coverage, including Meropenem given MDRO pathogens isolated recently. Clinically not septic appearing NGB , chronic santana requiring H/o MRSA Epidural abscess, despite surery form 2021, now with paraplegia Tobacco use Not septic-appearing at this time, HD stable. Plan: Same regimen and de-escalate as necessary. Prolonged course up to 6 weeks at least. Needs PICC. Continue local wound care and offloading to optimize wound healing. Will follow. Case d/wCM. Pharmacy to Dose Vancomycin - Progress Note Lab Results Component Value Date CREATININE 0.73 04/25/2025 BUN 14 04/25/2025 WBC 9.5 04/25/2025 VANCORANDOM 12.3 (L) 04/16/2024 VANCOTROUGH 12.0 04/24/2025 Doses, serum creatinine, and vancomycin levels interfaced automatically to [employer] and data has been analyzed and interpreted. Infectious Diagnosis: SSTI Est CrCl: 128.6 mL/min (Cockcroft-Gault) Assessment: Current regimen vancomycin 1500 mg every 12 hours (16.9 mg/kg) Predicted AUC = 590 mg/L*hr (goal 400-600 mg/L*hr) PAUC = >95% (probability that AUC is >400 mg/L*hr) Pconc = <5% (probability that Ctrough is above 20 mcg/mL (toxicity)) Plan: Is the current dose therapeutic? [x] Yes - obtain next level on 04/29 unless predicted AUC is sub-/supra-therapeutic or change in serum creatinine. [] No Trend serum creatinine. Trend AUC using Bayesian Modeling. Orders placed. DATE: 04/25/25 TIME: 9:15 AM Bridgette Virk PharmD PGY1 Signal Maintenance Technician Available via Secure Chat Images from the original note were not included. Department of General Surgery Daily Progress Note ADMIT DATE: 04/21/2025 TODAY'S DATE: 04/25/2025 HPI: Anmol Reynolds is a 64 y.o. male with significant past medical history of paraplegia s/p surgical complication with Dr. Ashley at [facility], HLD, HTN, MDD, OA, a-fib on eliquis, chronic sacral wounds who presents from his care home after he states the nurses have become more concerned about his sacral wound. Surgery was consulted for evaluation of these sacral wounds and concern for osteomyelitis of the left inferior pubic ramus. Patient states that he is feeling well overall. He reports he was brought in due to concerns for his sacral wound. Reports he is unsure if there has been increased drainage or redness but does endorse having infections requiring debridement prior to this. He is unsure why he takes Eliquis. On evaluation patient was HDS, afebrile. Labs reviewed significant for: WBC 12.5, HGB 11.7. CMP largely unremarkable. Wound cultures: many gram negative bacilli, gram + cocci in pairs and chains and clusters, gram positive bacilli. Imaging demonstrated: CT Pelvis- erosive lucency and bone in contact with air at left inferior pubic ramus and sacrum/coccyx junction. Overlying air and edema present in soft tissue along the wound. SUBJECTIVE: Very angry about not having his air mattress Denies fevers, chills Pain controlled, burning in his calf Interval history: 04/22 Admitted and ACS consult for sacral wound, concern for osteomyelitis 04/24 To OR for sacral wound debridement 04/25 dressing changed OBJECTIVE: VITALS: BP 113/66 (BP Location: Right arm, Patient Position: Sitting) Pulse 72 Temp 36.1 C (96.9 F) (Temporal) Resp 21 Ht 1.905 m (6' 3") Wt 88.6 kg (195 lb 6.4 oz) SpO2 97% BMI 24.42 kg/m INTAKE/OUTPUT: Intake/Output Summary (Last 24 hours) at 04/25/2025 0758 Last data filed at 04/25/2025 0358 Gross per 24 hour Intake 2900 ml Output 2720 ml Net 180 ml I/O last 3 completed shifts: In: 2900 (32.7 mL/kg) [I.V.:600 (6.8 mL/kg); IV Piggyback:2300] Out: 2720 (30.7 mL/kg) [Urine:2700 (0.8 mL/kg/hr); Blood:20] Weight: 88.6 kg No intake/output data recorded. PHYSICAL EXAM: Gen: NAD, A&Ox3, pain well controlled. Very upset about not having Heart: RRR, well perfused Lungs: symmetric chest rise, normal work of breathing Abd: soft, non tender, non distended. Non rigid. Ext: no c/c/e no gross deformities Skin: sacral wound present, wound bed pink, dressing changed LABS Results from last 7 days Lab Units 04/25/25 0056 04/24/25 0206 04/23/25 0013 WBC AUTO 10*3/uL 9.5 9.3 9.4 HEMOGLOBIN g/dL 10.4* 10.6* 9.9* HEMATOCRIT % 32.6* 32.8* 30.7* PLATELETS 10*3/uL 421 367 352 Results from last 7 days Lab Units 04/25/25 0056 04/24/25 0206 04/23/25 0013 SODIUM mmol/L 134* 136 133* POTASSIUM mmol/L 4.3 4.0 3.8 CHLORIDE mmol/L 101 101 105 CO2 mmol/L 26 27 21* BUN mg/dL 14 7* 8* CREATININE mg/dL 0.73 0.59* 0.54* GLUCOSE mg/dL 213* 113 133* CALCIUM mg/dL 8.2* 8.4* 8.1* Results from last 7 days Lab Units 04/21/25 2257 ALK PHOS U/L 116 BILIRUBIN TOTAL mg/dL 0.5 PROTEIN TOTAL g/dL 7.6 ALT U/L 6 AST U/L 13 LIPASE Date Value Ref Range Status 04/14/2024 <10 (L) 23 - 300 U/L Final 04/14/2024 12 (L) 23 - 300 U/L Final Current Inpatient Medications Scheduled Meds:Scheduled Meds[1] Continuous Infusions:Continuous Meds[2] PRN Meds:PRN Meds[3] ASSESSMENT AND PLAN: 64 y.o. male with paraplegia, chronic sacral wounds and c/f osteomyelitis of his left inferior pubic ramus S/P debridement on 04/24 - No further surgical intervention planned - Consult to wound care - Daily wet to dry dressing changes - Surgery to sign off, call with questions or concerns Maureen Garduno, PAINTER [employer]URAL STEEL - DOCUMENT MANAGEMENT TECHNICIAN 04/25/25 7:58 AM [1] [Held by provider] apixaban, 5 mg, Oral, BID chlorhexidine, , Topical, Daily DULoxetine, 30 mg, Oral, Daily ferrous sulfate, 325 mg, Oral, Daily with breakfast insulin glargine, 22 Units, SubCUTAneous, q AM insulin lispro, 0-18 Units, SubCUTAneous, TID WC insulin lispro, 0-18 Units, SubCUTAneous, Nightly meropenem, 2,000 mg, IntraVENous, q8h midodrine, 10 mg, Oral, TID mirtazapine, 7.5 mg, Oral, Nightly oxyCODONE, 15 mg, Oral, 4x daily polyethylene glycol (PEG) 3350, 17 g, Oral, BID pregabalin, 200 mg, Oral, TID senna-docusate sodium, 2 tablet, Oral, BID sodium chloride 0.9%, 10 mL, IntraCATHeter, q12h tamsulosin, 0.4 mg, Oral, Daily vancomycin, 1,500 mg, IntraVENous, q12h [2] [3] PRN medications: acetaminophen OR acetaminophen, bisacodyl, bisacodyl, calcium carbonate, cyclobenzaprine, dextrose, dextrose, glucagon (rDNA), glucose, naloxone, ondansetron ODT OR ondansetron, polyethylene glycol (PEG) 3350, sodium chloride 0.9% Hospitalist Progress Note 04/24/2025 Subjective: Admit Date: 04/21/2025 PCP: Tab Dupont Room#: [id number]/[id number] B BRIEF HOSPITAL COURSE: 64-year-old male presenting with concern for a wound infection and concern for osteomyelitis. He was coming from a nursing facility. The nursing staff indicated that his sacrum was becoming worse and felt it was becoming infected. He is a paraplegic and has been this way for the last 4 years. In the ED, he was afebrile, heart rate 82, respiratory to 16, blood pressure of 113/62, SpO2 of 95% on room air. Regarding his labs, he was mildly hyponatremic with a sodium of 130, otherwise his CMP was unremarkable. He had a mild leukocytosis of 12.5. He had a negative lactic acid. He had a CT of the pelvis which was concerning for osteomyelitis of the left inferior pubic ramus and sacrum and coccyx junction with erosive lucency with bone in contact with air. There is also bladder wall thickening. General surgery saw him, and plan for OR for debridement on April 24. They advised to continue to hold Eliquis and make sure he was n.p.o. prior to surgery. Regarding infection history, he has a history of Proteus UTIs that have been resistant to cefepime, but susceptible to meropenem. He also has had Pseudomonas UTIs which are susceptible to cefepime. He has also had Klebsiella and wound cultures susceptible to cefepime, but resistant to piperacillin tazobactam. Interval History: He had excisional debridement of the wound with osteomyelitis today. A bone biopsy was taken and sent for culture and pathology. Adult diet Regular; 5 carb choices (75 gm/meal) 24HR INTAKE/OUTPUT: Intake/Output Summary (Last 24 hours) at 04/24/2025 2252 Last data filed at 04/24/2025 2100 Gross per 24 hour Intake 600 ml Output 1970 ml Net -1370 ml Past Medical History: Medical History[1] LABS: CBC: Recent Labs 04/21/25225604/23/25 0013 04/24/25 0206 WBC 12.5* 9.4 9.3 RBC 4.03* 3.47* 3.68* HGB 11.7* 9.9* 10.6* HCT 35.6* 30.7* 32.8* MCV 88.3 88.5 89.1 RDW 14.9 14.9 14.9 PLT 372 352 367 BMP: Recent Labs 04/21/25225604/23/25 0013 04/24/25 0206 NA 130* 133* 136 K 4.3 3.8 4.0 CL 99 105 101 CO2 21* 21* 27 BUN 10 8* 7* CREATININE 0.65* 0.54* 0.59* GLUCOSE 202* 133* 113 CALCIUM 8.5* 8.1* 8.4* ANIONGAP 10 7 8 LIVER PROFILE: Recent Labs 04/21/252256 AST 13 ALT 6 BILITOT 0.5 ALKPHOS 116 PROT 7.6 PT/INR: No results for input(s): "PROTIME", "INR" in the last 72 hours. CARDIAC ENZYMES: No results for input(s): "TROPONINI" in the last 72 hours. Procalcitonin: No results found for: "PROCAL" COVID-19 PCR: No results for input(s): "COVID19" in the last 72 hours. Objective: Vitals: BP 98/63 (BP Location: Right arm, Patient Position: Lying) Pulse 78 Temp 36.6 C (97.8 F) (Temporal) Resp 21 Ht 6' 3" (1.905 m) Wt 195 lb 6.4 oz (88.6 kg) SpO2 95% BMI 24.42 kg/m Pulse Ox: SpO2 Av.4 % Min: 92 % Max: 100 % Supplemental O2: Physical Exam Constitutional: General: He is not in acute distress. Cardiovascular: Rate and Rhythm: Normal rate. Pulses: Normal pulses. Heart sounds: No murmur heard. Pulmonary: Effort: Pulmonary effort is normal. No respiratory distress. Breath sounds: No wheezing. Abdominal: General: There is no distension. Palpations: Abdomen is soft. Tenderness: There is no abdominal tenderness. Neurological: Mental Status: He is alert. Medications: Scheduled PRN Scheduled Meds[2] PRN Meds[3] Continuous Continuous Meds[4] Assessment Acute, acute on chronic, unstable/uncontrolled chronic problems/diagnoses: Osteomyelitis of the sacrum, inferior pubic ramus and coccyx junction Presenting from nursing facility and with a history of being a paraplegic. He had a mild leukocytosis on presentation. He had a CT of the pelvis that demonstrated osteomyelitis of the sacrum, pubic ramus and coccyx. He has a history of a Proteus UTI that had been resistant to cefepime, but susceptible to meropenem. He had a Pseudomonas UTI in the past susceptible to cefepime. He also had a Klebsiella and wound culture so perceptible to cefepime but resistant to piperacillin/tazobactam. Had excisional debridement and bone biopsy on 04/24 Plan - Infectious disease consulted - Vancomycin and meropenun - Holding Eliquis Type 2 diabetes with hyperglycemia Blood glucose elevated Plan - reducing morning lantus by about 50% due to NPO status at midnight -holding lispro because NPO Stable chronic problems affecting care, new non-acute diagnoses: History of paraplegia Depression/neuropathic pain-continue duloxetine Insomnia-continue mirtazapine Hx of atrial fibrillation-holding eliquis and to resume 48hrs after surgery Plan As a result of the above findings & factors, the following mgmt was pursued: - As above - am labs, replace lytes prn - PT/OT/CM/SW - delirium precautions: increase activity - DVT prophylaxis: SCDs and encourage ambulation Complexity: Acute illness or injury posing a threat to life or body function (HIGH). Risk: Use/consideration of therapy requiring intensive monitoring: parenteral nephrotoxic antibiotics, ex: gentamycin, vancomycin (anaphylaxis, MK/ATN, renal failure); BMP, trough levels (HIGH). Case discussed directly with infectious disease through secure chat Advance Directive: Full Code Anticipated Discharge - Date -TBD - Location - Skilled Facility - Pending the following -antibiotic plan and debridement Total time spent (which include face to face and non face to face encounters) : 35 minutes Toxic drug monitoring/narrow therapeutic index drug monitoring : # Drug name : Vancomycin # Route administered : IV # Method of monitoring : Serum creatinine Extended Emergency Contact Information Primary Emergency Contact: Ronald Reynolds Mobile Relation: Sibling Secondary Emergency Contact: SUMI REYNOLDS Mobile Relation: Daughter Kerwin Clarke DO [employer] of Hospitalist Medicine [facility] [1] Past Medical History: Diagnosis Date Abnormal posture Abscess, perineum Anemia BPH (benign prostatic hyperplasia) Chronic back pain Hematuria Hip sprain Hyperlipidemia Hypertension Major depressive disorder, single episode, unspecified MRSA (methicillin resistant staph aureus) culture positive spine 2021 Muscle wasting and atrophy, not elsewhere classified, left lower leg Muscle weakness (generalized) Neuropathy Obstructive and reflux uropathy, unspecified Osteoarthritis Other abnormalities of gait and mobility Other reduced mobility Paraplegia (HCC) Sciatica Spinal stenosis of lumbar region with neurogenic claudication Type 2 diabetes mellitus without complication (HCC) Urinary calculus, unspecified UTI (urinary tract infection) [2] [Held by provider] apixaban, 5 mg, Oral, BID chlorhexidine, , Topical, Daily DULoxetine, 30 mg, Oral, Daily ferrous sulfate, 325 mg, Oral, Daily with breakfast insulin glargine, 22 Units, SubCUTAneous, q AM insulin lispro, 0-18 Units, SubCUTAneous, TID WC insulin lispro, 0-18 Units, SubCUTAneous, Nightly meropenem, 2,000 mg, IntraVENous, q8h midodrine, 10 mg, Oral, TID mirtazapine, 7.5 mg, Oral, Nightly oxyCODONE, 15 mg, Oral, 4x daily polyethylene glycol (PEG) 3350, 17 g, Oral, BID pregabalin, 200 mg, Oral, TID senna-docusate sodium, 2 tablet, Oral, BID sodium chloride 0.9%, 10 mL, IntraCATHeter, q12h tamsulosin, 0.4 mg, Oral, Daily vancomycin, 1,500 mg, IntraVENous, q12h [3] PRN medications: acetaminophen OR acetaminophen, bisacodyl, bisacodyl, calcium carbonate, cyclobenzaprine, dextrose, dextrose, glucagon (rDNA), glucose, naloxone, ondansetron ODT OR ondansetron, polyethylene glycol (PEG) 3350, sodium chloride 0.9% [4] Patient declined smoking cessation counseling. Accepting of handout with contact information for future reference. Nutrition Assessment Type and Reason for Visit: Initial, Positive Nutrition Screen, Wound Nutrition Recommendations/Plan: Per MNT protocol will modify Adult diet Regular to include 75 g CHO controlled diet to promote euglycemia Supplement(s): added pineapple coconut rosie BID with bkfst and dinner (provides 90 kcals, 14 g AA, 2.5 grams Collagen, 300 mg Vitamin C, 9.5 mg Zinc, 1 packet per serving) per MNT protocol Will continue to monitor labs, meds, po intakes and/or enteral nutrition tolerance, skin integrity, wt trends, and overall nutrition status - RD to follow weekly Malnutrition Assessment: Malnutrition Status: At risk for malnutrition (Comment) (wound) Context: Acute Illness Findings of the 6 clinical characteristics of malnutrition: Energy Intake: Mild decrease in energy intake (Comment) (NPO for OR 04/24/25; at baseline has a very good appetite - tolerated 100% of his "brkfst" after OR today) Weight Loss: No significant weight loss (UBW per pt 190-200#, CBW 195# via bed scale) Body Fat Loss: Mild body fat loss (paraplegia, NFPA deferred as pt recently s/p OR for debridement - mild wasting visualluy observed, predicted pt at his baseline as he has gained wt since paraplegia complication in 2021 - wt was down to 135#) Orbital, Buccal region Muscle Mass Loss: Mild muscle mass loss Temples (temporalis) Fluid Accumulation: Moderate to Severe (BLE Edema: Moderate pitting, indentation subsides rapidly) Grain Spouter Strength: Not Performed Chief Complaint Patient presents with Wound Infection Per EMS pt was sent here from the [place] for wound infections. Pt has two wound on his sacrum - one at the top of sacrum and one at the bottom of the buttocks. Denies any fever/ CP/FEVER/ SOB. Pt is paralysis. Past Medical and Surgical History: Medical History[1] Surgical History[2] Nutrition Assessment: LOS# 2. +Nutrition screen for wound. +Nutrition screen for wound. 64M w/ PMHx: HLD, HTN, DMII, MDD, OA, Afib on eliquis, chronic sacral wounds, and hx of MRSA BSI c/b L2-L3 epidural abscess and R psoas abscess with resultant paraplegia and neurogenic bladder (01/2022) who presents from ECF with c/f OM of L inferior pubic ramus. On eval the pt was HDS, afebrile. Labs sig for WBC 12.5, HGB 11.7. CMP largely unremarkable. Wound cxs: many gram negative bacilli, gram + cocci in pairs and chains and clusters, gram positive bacilli. CTAP demonstrates erosive lucency and bone in contact with air at left inferior pubic ramus and sacrum/coccyx junction. Overlying air and edema present in soft tissue along the wound. S/p OR this AM 04/24/25 for I&D of sacral wound w/ possible wound vac application. Wound c/s pending due to pt being OOR at time of visit. NPO advanced to regular diet. A1c 7.9%. BS noted. Has historically declined ONS. Labs/meds reviewed. UBW per pt 190-200#, CBW 195# via bed scale. Pt recently returned from OR. Dtr present on the unit who is an MICROBIOLOGY INSTRUCTOR at a SNF. Nurse states she ordered him bkfst and he ate all of his tray. Dtr reports pt has not previously been on ONS (hard chart does not show diet hx from facility). She states at one point he came down in weight to 135# after paraplegia incident from surgery complication and has had several health concerns following. She states the pt has a very good appetite, including protein foods, at baseline and has been able to gain weight back since 2021. Pt seen at bedside after nsg checked on him. He is alert and able to answer questions appropriately. Denies GI concerns ATT, such as N/V abd pain or mechanical difficulty w/ po. He is amenable to trial rosie. Discussed protein sources for wound haling. Estimated Daily Nutrient Needs: Energy Requirements Based On: Kcal/kg Weight Used for Energy Requirements: Adjusted (AIBW for paraplegia) Weight for Energy Calculation (kg): 82.41 kg Total Energy Requirements (kcals/day): 0092-2593 (25-30 kcals/kg) Weight Used for Protein Requirements: Adjusted (AIBW for paraplegia) Weight in Kg Used for Protein Requirements: 82.41 kg Estimated Total Protein (g/day): 82-99 (1-1.2 g/kg) Estimated Daily Total Fluid (ml/day): 1 ml/kcal or per MD Nutrition Related Findings: Wound Type: Wound Consult Pending, Surgical Incision (Venous Ulcer to sacrum; s/p I&D 04/24/25) Isolation Status: No active isolations Food Allergies: NKFA Teeth: Partial plate upper (in cup with chart) Room Service: Selective Jack Scale Score: 14 BLE Edema: Moderate pitting, indentation subsides rapidly Gastrointestinal (WDL): Within Defined Limits Last BM Date: 04/22/25 Nutrition History: Independent of feeding and Resides at LTC facility Level of Consciousness: Alert; Orientation Level: Oriented X4 Code Status, Oxygen Needs, Vital Signs, I/Os: Code Status: Full Code Oxygen Therapy: SpO2: 93 %; Oxygen Therapy: None (Room air) Vital Signs: Temp: 36.1 C (97 F); Heart Rate: 64; Resp: 16; BP: 99/59; MAP (mmHg): 65 Net IO Since Admission: -3,820 mL [04/24/25 1615] Intake/Output Summary (Last 24 hours) at 04/24/2025 1615 Last data filed at 04/24/2025 0851 Gross per 24 hour Intake 600 ml Output 2020 ml Net -1420 ml Labs/Meds Reviewed: Scheduled Meds[3] Continuous Meds[4] BMP: Recent Labs 04/21/25225604/23/25 0013 04/24/25 0206 NA 130* 133* 136 K 4.3 3.8 4.0 CL 99 105 101 CO2 21* 21* 27 BUN 10 8* 7* CREATININE 0.65* 0.54* 0.59* GLUCOSE 202* 133* 113 CALCIUM 8.5* 8.1* 8.4* HEPATIC: Recent Labs 04/21/252256 AST 13 ALT 6 BILITOT 0.5 ALKPHOS 116 CBC: Recent Labs 04/21/25225604/23/25 0013 04/24/25 0206 WBC 12.5* 9.4 9.3 HGB 11.7* 9.9* 10.6* HCT 35.6* 30.7* 32.8* MCV 88.3 88.5 89.1 PLT 372 352 367 Lab Results Component Value Date HGBA1C 7.9 (H) 04/21/2025 HGBA1C 6.3 (H) 04/15/2024 HGBA1C 12.1 (H) 10/25/2020 Recent Labs 04/22/25 2014 04/23/25 0935 04/23/25 1214 04/23/25 1644 04/23/25 2115 04/24/25 0841 04/24/25 0924 04/24/25 1131 POCGLU 157* 217* 231* 119* 189* 126* 135* 259* Current Nutrition Therapies: Adult diet Regular Current Oral Intake Average Meal Intake: 76-100% Average Supplements Intake: None Ordered Anthropometric Measures: Height: 190.5 cm (6' 3") Current Body Weight: 88.5 kg (195 lb) Weight Source: Bed Scale Admission Body Weight: 90.7 kg (200 lb) ("stated") Usual Body Weight: 88.5 kg (195 lb) (190-200# per pt, was down to 135# in 2021 after surgery complication resulting in paraplegia) % Weight Change (Calculated): 0 [place] Body Weight (lbs) (Calculated): 196 lbs [place] Body Weight (Kg) (Calculated): 89 kg % [place] Body Weight (Calculated): 99.5 % BMI (kg/m2) (Calculated): 24.4 Weight Adjustment For: Paraplegia % Weight Adjustment: 7.5 - Paraplegia Total Adjusted Percentage (Calculated): 7.5 Adjusted [place] Body Weight (lbs) (Calculated): 181.3 lbs Adjusted [place] Body Weight (kg) (Calculated): 82.41 kg Adjusted BMI (kg/m2) (Calculated): 26.2 BMI Categories: Overweight (BMI 25.0-29.9) Nutrition Diagnosis: Increased nutrient needs related to increase demand for energy/nutrients as evidenced by wounds Nutrition Interventions: Food and/or Nutrient Delivery: Modify Current Diet and Start Oral Nutrition Supplement Nutrition Education/Counseling: Survival skills/brief education completed (wound healing MNT) Coordination of Nutrition Care: Continue to monitor while inpatient Plan of Care discussed with: Patient, Nurse, and Daughter Goals: Goals: Meet at least 75% of estimated needs Nutrition Monitoring and Evaluation: Behavioral-Environmental Outcomes: None Identified Food/Nutrient Intake Outcomes: Food and Nutrient Intake, Supplement Intake Physical Signs/Symptoms Outcomes: Biochemical Data, Weight, Skin, Nutrition Focused Physical Findings Discharge Planning: Too soon to determine Elly Hou MS, RD, LD Contact: or [employer] Chat (dial *[phone] from hospital phone) [1] Past Medical History: Diagnosis Date Abnormal posture Abscess, perineum Anemia BPH (benign prostatic hyperplasia) Chronic back pain Hematuria Hip sprain Hyperlipidemia Hypertension Major depressive disorder, single episode, unspecified MRSA (methicillin resistant staph aureus) culture positive spine 2021 Muscle wasting and atrophy, not elsewhere classified, left lower leg Muscle weakness (generalized) Neuropathy Obstructive and reflux uropathy, unspecified Osteoarthritis Other abnormalities of gait and mobility Other reduced mobility Paraplegia (HCC) Sciatica Spinal stenosis of lumbar region with neurogenic claudication Type 2 diabetes mellitus without complication (HCC) Urinary calculus, unspecified UTI (urinary tract infection) [2] Past Surgical History: Procedure Laterality Date ANKLE SURGERY Right He has a titanium plate to the right ankle KNEE SURGERY Left ACL KNEE SURGERY Left removal of screw LAMINECTOMY Left 10/24/2020 LEFT BILATERAL L2-3-4-5 DECOMPRESSION performed by Opal Vigil MD at [facility] OR ORTHOPEDIC SURGERY Right removal of hardware ankle OTHER SURGICAL HISTORY 04/24/2025 Sacral wound DEBRIDEMENT SKIN SUBCUTANEOUS TISSUE MUSCLE - Bilateral US PLACE URETAL STENT PERC PRE-EXIST TRACT S&I (HISTORICAL) Bilateral 04/14/2024 Dr. Patel/Bashir [3] [Held by provider] apixaban, 5 mg, Oral, BID chlorhexidine, , Topical, Daily DULoxetine, 30 mg, Oral, Daily ferrous sulfate, 325 mg, Oral, Daily with breakfast insulin glargine, 22 Units, SubCUTAneous, q AM insulin lispro, 0-18 Units, SubCUTAneous, TID WC meropenem, 2,000 mg, IntraVENous, q8h midodrine, 10 mg, Oral, TID mirtazapine, 7.5 mg, Oral, Nightly oxyCODONE, 15 mg, Oral, 4x daily polyethylene glycol (PEG) 3350, 17 g, Oral, BID pregabalin, 200 mg, Oral, TID senna-docusate sodium, 2 tablet, Oral, BID sodium chloride 0.9%, 10 mL, IntraCATHeter, q12h tamsulosin, 0.4 mg, Oral, Daily vancomycin, 1,500 mg, IntraVENous, q12h [4] Pharmacy to Dose Vancomycin - Progress Note Lab Results Component Value Date CREATININE 0.59 (L) 04/24/2025 BUN 7 (L) 04/24/2025 WBC 9.3 04/24/2025 VANCORANDOM 12.3 (L) 04/16/2024 VANCOTROUGH 12.0 04/24/2025 Doses, serum creatinine, and vancomycin levels interfaced automatically to [employer] and data has been analyzed and interpreted. Infectious Diagnosis: SSTI Est CrCl: >125 mL/min (Cockcroft-Gault) Assessment: Current regimen vancomycin 1500 mg every 12 hours (16.9 mg/kg) Predicted AUC = 555 mg/L*hr (goal 400-600 mg/L*hr) PAUC = >95% (probability that AUC is >400 mg/L*hr) Pconc = <5% (probability that Ctrough is above 20 mcg/mL (toxicity)) Plan: Is the current dose therapeutic? [x] Yes - obtain next level on 04/29/25 unless predicted AUC is sub-/supra-therapeutic or change in serum creatinine. [] No Trend serum creatinine. Trend AUC using Bayesian Modeling. Orders placed. DATE: 04/24/25 TIME: 10:29 AM Jewell Gambino PharmD Clinical Pharmacist Available via Secure Chat Patient out of room at time of visit Wound care to follow up at a later time JOE Diaz CNP Family Communication Number Called: [phone] Name of Designated Family Wet Cotton Feeder: Ronald Reynolds Relationship: brother Phone Call Outcome: I spoke with the individual listed above. Family Wet Cotton Feeder Updated on the Following: I updated Ronald on Anmol's surgery. He will rely the message to Ronald's daughter Sumi (phone number provided not functional). Images from the original note were not included. Department of General Surgery Daily Progress Note ADMIT DATE: 04/21/2025 TODAY'S DATE: 04/24/2025 HPI: Anmol Reynolds is a 64 y.o. male with significant past medical history of paraplegia s/p surgical complication with Dr. Ashley at [facility], HLD, HTN, MDD, OA, a-fib on eliquis, chronic sacral wounds who presents from his care home after he states the nurses have become more concerned about his sacral wound. Surgery was consulted for evaluation of these sacral wounds and concern for osteomyelitis of the left inferior pubic ramus. Patient states that he is feeling well overall. He reports he was brought in due to concerns for his sacral wound. Reports he is unsure if there has been increased drainage or redness but does endorse having infections requiring debridement prior to this. He is unsure why he takes Eliquis. On evaluation patient was HDS, afebrile. Labs reviewed significant for: WBC 12.5, HGB 11.7. CMP largely unremarkable. Wound cultures: many gram negative bacilli, gram + cocci in pairs and chains and clusters, gram positive bacilli. Imaging demonstrated: CT Pelvis- erosive lucency and bone in contact with air at left inferior pubic ramus and sacrum/coccyx junction. Overlying air and edema present in soft tissue along the wound. SUBJECTIVE: No acute events overnight. Patient understands plan to head to OR today for debridement of his sacral wound. Patient does not have any questions or concerns. Interval history: 04/22 Admitted and ACS consult for sacral wound, concern for osteomyelitis OBJECTIVE: VITALS: BP 112/80 (BP Location: Right arm, Patient Position: Lying) Pulse 65 Temp 36.6 C (97.8 F) (Temporal) Resp 20 Ht 6' 3" (1.905 m) Wt 195 lb 6.4 oz (88.6 kg) SpO2 95% BMI 24.42 kg/m INTAKE/OUTPUT: Intake/Output Summary (Last 24 hours) at 04/24/2025 0714 Last data filed at 04/23/2025 1650 Gross per 24 hour Intake -- Output 1700 ml Net -1700 ml I/O last 3 completed shifts: In: - (0 mL/kg) Out: 2600 (29.3 mL/kg) [Urine:2600 (0.8 mL/kg/hr)] Weight: 88.6 kg No intake/output data recorded. PHYSICAL EXAM: Gen: NAD, A&Ox3, pain well controlled Heart: RRR, well perfused Lungs: symmetric chest rise, normal work of breathing, breath sounds b/l Abd: soft, non tender, non distended. Non rigid. Ext: no c/c/e no gross deformities Skin: sacral wound present, not tender to palpation LABS Results from last 7 days Lab Units 04/24/25 0206 04/23/25 0013 04/21/25 2257 WBC AUTO 10*3/uL 9.3 9.4 12.5* HEMOGLOBIN g/dL 10.6* 9.9* 11.7* HEMATOCRIT % 32.8* 30.7* 35.6* PLATELETS 10*3/uL 367 352 372 Results from last 7 days Lab Units 04/24/25 0206 04/23/25 0013 04/21/25 2257 SODIUM mmol/L 136 133* 130* POTASSIUM mmol/L 4.0 3.8 4.3 CHLORIDE mmol/L 101 105 99 CO2 mmol/L 27 21* 21* BUN mg/dL 7* 8* 10 CREATININE mg/dL 0.59* 0.54* 0.65* GLUCOSE mg/dL 113 133* 202* CALCIUM mg/dL 8.4* 8.1* 8.5* Results from last 7 days Lab Units 04/21/25 2257 ALK PHOS U/L 116 BILIRUBIN TOTAL mg/dL 0.5 PROTEIN TOTAL g/dL 7.6 ALT U/L 6 AST U/L 13 LIPASE Date Value Ref Range Status 04/14/2024 <10 (L) 23 - 300 U/L Final 04/14/2024 12 (L) 23 - 300 U/L Final Current Inpatient Medications Scheduled Meds:Scheduled Meds[1] Continuous Infusions:Continuous Meds[2] PRN Meds:PRN Meds[3] ASSESSMENT AND PLAN: 64 y.o. male with paraplegia, chronic sacral wounds and c/f osteomyelitis of his left inferior pubic ramus. Heading to OR today 04/24 for excision of sacral wound - OR today 04/24 for excision of sacral wound, possible wound vac placement - patient NPO in advance of OR - remainder of care per primary Kathrin Nielson MD General Surgery Resident PGY-1 04/24/25 7:19 AM [1] [Held by provider] apixaban, 5 mg, Oral, BID [Transfer Hold] chlorhexidine, , Topical, Daily [Transfer Hold] DULoxetine, 30 mg, Oral, Daily [Transfer Hold] ferrous sulfate, 325 mg, Oral, Daily with breakfast [Transfer Hold] insulin glargine, 22 Units, SubCUTAneous, q AM [Held by provider] insulin lispro, 0-18 Units, SubCUTAneous, TID WC And [Held by provider] insulin lispro, 0-18 Units, SubCUTAneous, Nightly [Transfer Hold] meropenem, 2,000 mg, IntraVENous, q8h [Transfer Hold] midodrine, 10 mg, Oral, TID [Transfer Hold] mirtazapine, 7.5 mg, Oral, Nightly [Transfer Hold] oxyCODONE, 15 mg, Oral, 4x daily [Transfer Hold] polyethylene glycol (PEG) 3350, 17 g, Oral, BID [Transfer Hold] pregabalin, 200 mg, Oral, TID [Transfer Hold] senna-docusate sodium, 2 tablet, Oral, BID [Transfer Hold] sodium chloride 0.9%, 10 mL, IntraCATHeter, q12h [Transfer Hold] tamsulosin, 0.4 mg, Oral, Daily [Transfer Hold] vancomycin, 1,500 mg, IntraVENous, q12h [2] [3] PRN medications: [Transfer Hold] acetaminophen OR [Transfer Hold] acetaminophen, [Transfer Hold] bisacodyl, [Transfer Hold] bisacodyl, [Transfer Hold] calcium carbonate, [Transfer Hold] cyclobenzaprine, [Transfer Hold] dextrose, [Transfer Hold] dextrose, [Transfer Hold] glucagon (rDNA), [Transfer Hold] glucose, [Transfer Hold] naloxone, [Transfer Hold] ondansetron ODT OR [Transfer Hold] ondansetron, [Transfer Hold] polyethylene glycol (PEG) 3350, [Transfer Hold] sodium chloride 0.9% Cosigned by Kaela Durand MD at 04/24/2025 7:35 AM EDT Associated attestation - Kaela Durand MD - 04/24/2025 7:35 AM EDT ATTENDING ADDENDUM Problem List[1] I personally supervised the resident in the evaluation and development of a treatment plan for this patient on the same day of service as above. I personally discussed the review of systems and interviewed the patient along with performing a physical examination. I reviewed the recent events, imaging, labs, vital signs. In addition, I discussed the patient's condition and treatment options with him/her when possible. I have also reviewed and agree with the past medical, family, and social history unless otherwise noted. All of the patient's questions were answered and family updated when appropriate and possible. 64M with paraplegia following a "Spine surgery for MRSA" 3 years ago presents with a sacral and ischial ulcer requiring debridement. On Eliquis for A-fib, last dose was 04/22. I evaluated the patient in the pre-op area and discussed the plan for the OR. When I mentioned that I was a surgeon he stated "it was a surgeon who paralyzed me". I explained the plan to clean up the wound and remove the tissue. He is in agreement with this. Hb 10.6, PLT [address] A/P which shows evidence of osteomyelitis of the inferior pubic ramus and sacrum. Proceed to OR for debridement of sacral & ischial wounds Level of Medical Decision Making: risk of morbidity from additional diagnostic testing or treatment due to chronic sacral wounds []High [x]Moderate []Low Complexity: Acute, complicated injury (MOD) Multiple stable chronic illnesses (MOD) Risk: Decision regarding minor surgery with identified patient or procedure risk factors (MOD) Personally Reviewed/Independently interpreted patient's: [x]Epic notes []Radiology studies [x]Labs []EKG []Ordering tests []Other Discussed/ With: [x]Patient/Family []RN []Consultants []SW/TCC []Other I spent total time of 35 minutes reviewing previous notes, test results, and face to face with Anmol Reynolds discussing the diagnosis and importance of compliance with the treatment plan as well as documenting on the day of the visit. Kaela Durand MD Division of Trauma Department of Surgery [facility] [1] Patient Active Problem List Diagnosis Nicotine use disorder Unspecified osteoarthritis, unspecified site Pilonidal cyst without abscess Diabetes mellitus without complication (HCC) Lumbar radiculopathy Abnormal finding on EKG Hypertension Hyperglycemia Hip sprain Other intervertebral disc displacement, lumbar region Anxiety Lumbar stenosis with neurogenic claudication Spinal stenosis of lumbar region with neurogenic claudication Herniated nucleus pulposus, L5-S1, left Septic shock (HCC) Pressure injury of coccygeal region, stage 3 (HCC) Bladder calculus Calculus of ureter Positive blood cultures Other acute osteomyelitis, other site (HCC) Hospitalist Progress Note 04/23/2025 Subjective: Admit Date: 04/21/2025 PCP: Tab Dupont Room#: N4-465/N4-465 B BRIEF HOSPITAL COURSE: 64-year-old male presenting with concern for a wound infection and concern for osteomyelitis. He was coming from a nursing facility. The nursing staff indicated that his sacrum was becoming worse and felt it was becoming infected. He is a paraplegic and has been this way for the last 4 years. In the ED, he was afebrile, heart rate 82, respiratory to 16, blood pressure of 113/62, SpO2 of 95% on room air. Regarding his labs, he was mildly hyponatremic with a sodium of 130, otherwise his CMP was unremarkable. He had a mild leukocytosis of 12.5. He had a negative lactic acid. He had a CT of the pelvis which was concerning for osteomyelitis of the left inferior pubic ramus and sacrum and coccyx junction with erosive lucency with bone in contact with air. There is also bladder wall thickening. General surgery saw him, and plan for OR for debridement on April 24. They advised to continue to hold Eliquis and make sure he was n.p.o. prior to surgery. Regarding infection history, he has a history of Proteus UTIs that have been resistant to cefepime, but susceptible to meropenem. He also has had Pseudomonas UTIs which are susceptible to cefepime. He has also had Klebsiella and wound cultures susceptible to cefepime, but resistant to piperacillin tazobactam. Interval History: No overnight issues. Case and plan discussed with patient and bedside nurse. All questions answered. No symptoms today. We had a discussion about his outlook and continued to focus on his daughter and his mother, and getting enjoyment out of life. Adult diet Regular NPO diet with enteral medications 24HR INTAKE/OUTPUT: Intake/Output Summary (Last 24 hours) at 04/23/20252208 Last data filed at 04/23/2025 1650 Gross per 24 hour Intake -- Output 2600 ml Net -2600 ml Past Medical History: Medical History[1] LABS: CBC: Recent Labs 04/21/25225604/23/25 0013 WBC 12.5* 9.4 RBC 4.03* 3.47* HGB 11.7* 9.9* HCT 35.6* 30.7* MCV 88.3 88.5 RDW 14.9 14.9 PLT 372 352 BMP: Recent Labs 04/21/25225604/23/25 0013 NA 130* 133* K 4.3 3.8 CL 99 105 CO2 21* 21* BUN 10 8* CREATININE 0.65* 0.54* GLUCOSE 202* 133* CALCIUM 8.5* 8.1* ANIONGAP 10 7 LIVER PROFILE: Recent Labs 04/21/252256 AST 13 ALT 6 BILITOT 0.5 ALKPHOS 116 PROT 7.6 PT/INR: No results for input(s): "PROTIME", "INR" in the last 72 hours. CARDIAC ENZYMES: No results for input(s): "TROPONINI" in the last 72 hours. Procalcitonin: No results found for: "PROCAL" COVID-19 PCR: No results for input(s): "COVID19" in the last 72 hours. Objective: Vitals: BP 113/70 (BP Location: Right arm, Patient Position: Lying) Pulse 72 Temp 36.4 C (97.6 F) (Temporal) Resp 21 Ht 6' 3" (1.905 m) Wt 195 lb 6.4 oz (88.6 kg) SpO2 96% BMI 24.42 kg/m Pulse Ox: SpO2 Av.5 % Min: 93 % Max: 96 % Supplemental O2: Physical Exam Constitutional: General: He is not in acute distress. Cardiovascular: Rate and Rhythm: Normal rate. Pulses: Normal pulses. Heart sounds: No murmur heard. Pulmonary: Effort: Pulmonary effort is normal. No respiratory distress. Breath sounds: No wheezing. Abdominal: General: There is no distension. Palpations: Abdomen is soft. Tenderness: There is no abdominal tenderness. Neurological: Mental Status: He is alert. Medications: Scheduled PRN Scheduled Meds[2] PRN Meds[3] Continuous Continuous Meds[4] Assessment Acute, acute on chronic, unstable/uncontrolled chronic problems/diagnoses: Osteomyelitis of the sacrum, inferior pubic ramus and coccyx junction Presenting from nursing facility and with a history of being a paraplegic. He had a mild leukocytosis on presentation. He had a CT of the pelvis that demonstrated osteomyelitis of the sacrum, pubic ramus and coccyx. He has a history of a Proteus UTI that had been resistant to cefepime, but susceptible to meropenem. He had a Pseudomonas UTI in the past susceptible to cefepime. He also had a Klebsiella and wound culture so perceptible to cefepime but resistant to piperacillin/tazobactam. Plan - Infectious disease consulted - Discussed with ID and they agreed with my assessment to start meropenem -Pharmacy to dose vancomycin - Holding Eliquis - Debridement on April 24 Type 2 diabetes with hyperglycemia Blood glucose elevated Plan - reducing morning lantus by about 50% due to NPO status at midnight -holding lispro because NPO Stable chronic problems affecting care, new non-acute diagnoses: History of paraplegia Depression/neuropathic pain-continue duloxetine Insomnia-continue mirtazapine Plan As a result of the above findings & factors, the following mgmt was pursued: - As above - am labs, replace lytes prn - PT/OT/CM/SW - delirium precautions: increase activity - DVT prophylaxis: SCDs and encourage ambulation Complexity: Acute illness or injury posing a threat to life or body function (HIGH). Risk: Use/consideration of therapy requiring intensive monitoring: parenteral nephrotoxic antibiotics, ex: gentamycin, vancomycin (anaphylaxis, MK/ATN, renal failure); BMP, trough levels (HIGH). Case discussed directly with infectious disease through secure chat Advance Directive: Full Code Anticipated Discharge - Date -TBD - Location - Skilled Facility - Pending the following -antibiotic plan and debridement Total time spent (which include face to face and non face to face encounters) : 35 minutes Toxic drug monitoring/narrow therapeutic index drug monitoring : # Drug name : Vancomycin # Route administered : IV # Method of monitoring : Serum creatinine Extended Emergency Contact Information Primary Emergency Contact: Ronald Reynolds Mobile Relation: Sibling Secondary Emergency Contact: SUMI REYNOLDS Mobile Relation: Daughter Kerwin Ricci Division of Hospitalist Medicine [facility] [1] Past Medical History: Diagnosis Date Abnormal posture Abscess, perineum Anemia BPH (benign prostatic hyperplasia) Chronic back pain Hematuria Hip sprain Hyperlipidemia Hypertension Major depressive disorder, single episode, unspecified MRSA (methicillin resistant staph aureus) culture positive spine 2021 Muscle wasting and atrophy, not elsewhere classified, left lower leg Muscle weakness (generalized) Neuropathy Obstructive and reflux uropathy, unspecified Osteoarthritis Other abnormalities of gait and mobility Other reduced mobility Paraplegia (HCC) Sciatica Spinal stenosis of lumbar region with neurogenic claudication Type 2 diabetes mellitus without complication (CMS/HCC) (HCC) Urinary calculus, unspecified UTI (urinary tract infection) [2] [Held by provider] apixaban, 5 mg, Oral, BID chlorhexidine, , Topical, Daily DULoxetine, 30 mg, Oral, Daily ferrous sulfate, 325 mg, Oral, Daily with breakfast insulin glargine, 45 Units, SubCUTAneous, q AM insulin lispro, 0-18 Units, SubCUTAneous, TID WC And insulin lispro, 0-18 Units, SubCUTAneous, Nightly meropenem, 2,000 mg, IntraVENous, q8h midodrine, 10 mg, Oral, TID mirtazapine, 7.5 mg, Oral, Nightly oxyCODONE, 15 mg, Oral, 4x daily polyethylene glycol (PEG) 3350, 17 g, Oral, BID pregabalin, 200 mg, Oral, TID senna-docusate sodium, 2 tablet, Oral, BID sodium chloride 0.9%, 10 mL, IntraCATHeter, q12h tamsulosin, 0.4 mg, Oral, Daily vancomycin, 1,500 mg, IntraVENous, q12h [3] PRN medications: acetaminophen OR acetaminophen, bisacodyl, bisacodyl, calcium carbonate, cyclobenzaprine, dextrose, dextrose, glucagon (rDNA), glucose, naloxone, ondansetron ODT OR ondansetron, polyethylene glycol (PEG) 3350, sodium chloride 0.9% [4] Images from the original note were not included. PHYSICAL THERAPY [facility] Initial Evaluation Name/MRN: Anmol Reynolds ([id number]) Evaluation Date: 04/23/2025 Date of : 1960 Admission Date: 04/21/2025 9:56 PM Age: 64 y.o. Room[facility]Bed: N4-465[facility] Discharge Recommendation: [facility] Facility Equipment Needed: No Assessment IMPRESSION: PT eval completed and the pt is at his functional baseline for transfers, ambulation, balance, and bed mobility. No skilled therapy needs at this time. Recommended return to SNF level therapy upon disch and PT is also disch Admitting Diagnosis: acute osteomyelitis of sacrum Prognosis: guarded Performance Deficits /Impairments: Increased Pain, Decreased Functional Mobility, Decreased ADL status, Decreased Strength, Decreased Safety Awareness, Decreased Endurance, Decreased Balance, Decreased ROM, and Decreased High Level IADLs Decision Making: Medium Complexity Subjective Pt lying upright in bed. Agreeable to therapy, expressing frustration with current wound situation Pain: c/o sacral sight pain, but did not provide number Past Medical History: Medical History[1] Past Surgical History: Surgical History[2] Admission Diagnosis: Patient Active Problem List Diagnosis Date Noted Hypertension 01/06/2017 Hyperglycemia 01/06/2017 Hip sprain 01/06/2017 Anxiety 01/06/2017 Other acute osteomyelitis, other site ([facility]) 04/22/2025 Positive blood cultures 05/17/2024 Calculus of ureter 05/06/2024 Bladder calculus 05/05/2024 Pressure injury of coccygeal region, stage 3 ([facility]) 04/20/2024 Septic shock (HCC) 04/14/2024 Lumbar stenosis with neurogenic claudication 10/24/2020 Spinal stenosis of lumbar region with neurogenic claudication 10/24/2020 Nicotine use disorder 10/15/2020 Unspecified osteoarthritis, unspecified site 10/15/2020 Pilonidal cyst without abscess 10/15/2020 Diabetes mellitus without complication ([facility]) 10/15/2020 Abnormal finding on EKG 10/15/2020 Other intervertebral disc displacement, lumbar region 10/15/2020 Lumbar radiculopathy 10/04/2020 Herniated nucleus pulposus, L5-S1, left 07/07/2017 Medical Precautions: No active isolations Proper PPE donned/doffed in accordance with facility standards. Fall Risk: Marroquin Fall Risk Score: 35 (Medium Risk) Precautions/Restrictions: Right LE Weight Bearing: Weight Bearing As Tolerated Left LE Weight Bearing: Weight Bearing As Tolerated +bed alarm Family/Caregiver Present: none Overall Cognitive Status: WNL Overall Orientation Status: Oriented x4 Social/Functional History Patient admitted from [facility] . Assistive Equipment: wheelchair - manual and everett lift Prior Level of Function Prior Level of ADL Function: Required Assist Prior Level of Mobility: Dependent; Device: None Prior Level of Transfers: Dependent Per pt, had failed back surgery in 2021 that left his a paraplegic. Has been in and out of several SNFs, but has been at current x3 years. Everett lift transfers OOB into manual w/c. Hx of sacral wounds Objective Bed Mobility Supine to sit: Mod Assist Sit to supine: Mod Assist Rolling to right: Mod Assist Rolling to left: Mod Assist Scooting: Mod Assist Balance During Session: Posture: fair Sitting - Static: Min Assist Sitting - Dynamic: Min Assist Noted full trunk control, but no active movement of bilat LE. Still able to feel light touch. Outcome Measures AM-PAC How much HELP from another person do you currently need Turning from your back to your side while in a flat bed without using bedrails?: A Lot Moving from lying on your back to sitting on the side of a flat bed without using bedrails?: A Lot Moving to and from a bed to a chair (including a wheelchair)?: Total Standing up from a chair using your arms (wheelchair or bedside chair)?: Total Walking in a hospital room?: Total Stair climbing assessed?: No AM-PAC Inpatient Mobility Raw Score (No Stairs) : 7 JH-HLM JH-HLM Score: Sat at edge of bed Plan No skilled acute PT indicated at this time. Please reconsult should changes occur. Safety/Education Safety Safety Devices in place: All fall risk precautions in place, call light within reach, left in bed, and no alarms engaged upon entry Restraints: No Education Education Given To: patient Education Provided: PT Role, PT Goals, and Plan of Care Education Method: Verbal Barriers to Learning: None Goals Patient Stated Goal: get this wound taken care of Therapy Time Individual Co-Treatment Co-Evaluation Time In 811 Time Out 08 Minutes 10 Abigail Collins PT Patient's Physical Therapy Plan of Care supervision is transferred to a [facility] Therapy Services Physical Therapist. Goals and/or treatment plan was established in collaboration with patient/family/other representatives. [1] Past Medical History: Diagnosis Date Abnormal posture Abscess, perineum Anemia BPH (benign prostatic hyperplasia) Chronic back pain Hematuria Hip sprain Hyperlipidemia Hypertension Major depressive disorder, single episode, unspecified MRSA (methicillin resistant staph aureus) culture positive spine 2021 Muscle wasting and atrophy, not elsewhere classified, left lower leg Muscle weakness (generalized) Neuropathy Obstructive and reflux uropathy, unspecified Osteoarthritis Other abnormalities of gait and mobility Other reduced mobility Paraplegia (HCC) Sciatica Spinal stenosis of lumbar region with neurogenic claudication Type 2 diabetes mellitus without complication (CMS/HCC) (HCC) Urinary calculus, unspecified UTI (urinary tract infection) [2] Past Surgical History: Procedure Laterality Date ANKLE SURGERY Right He has a titanium plate to the right ankle KNEE SURGERY Left ACL KNEE SURGERY Left removal of screw LAMINECTOMY Left 10/24/2020 LEFT BILATERAL L2-3-4-5 DECOMPRESSION performed by Opal Vigil MD at [facility] OR ORTHOPEDIC SURGERY Right removal of hardware ankle US PLACE URETAL STENT PERC PRE-EXIST TRACT S&I (HISTORICAL) Bilateral 04/14/2024 Dr. Patel/Bashir Pharmacy to Dose Vancomycin - Progress Note Lab Results Component Value Date CREATININE 0.54 (L) 04/23/2025 BUN 8 (L) 04/23/2025 WBC 9.4 04/23/2025 VANCORANDOM 12.3 (L) 04/16/2024 VANCOTROUGH 12.4 04/22/2025 Doses, serum creatinine, and vancomycin levels interfaced automatically to [employer] and data has been analyzed and interpreted. Infectious Diagnosis: SSTI Est CrCl: > 100 mL/min (Cockcroft-Gault) Assessment: Current regimen vancomycin 1500 mg every 12 hours (16.9 mg/kg) Predicted AUC = 467 mg/L*hr (goal 400-600 mg/L*hr) PAUC = 86% (probability that AUC is >400 mg/L*hr) Pconc = <5% (probability that Ctrough is above 20 mcg/mL (toxicity)) Plan: Is the current dose therapeutic? [x] Yes - obtain next level on 04/24 unless predicted AUC is sub-/supra-therapeutic or change in serum creatinine. Trend serum creatinine. Trend AUC using Bayesian Modeling. Orders placed. DATE: 04/23/25 TIME: 8:13 AM Radha Deal RPh Clinical Pharmacist Available via Secure Chat Hospitalist Progress Note 04/22/2025 Subjective: Admit Date: 04/21/2025 PCP: Tab Dupont Room#: N4-465/N4-465 B BRIEF HOSPITAL COURSE: 64-year-old male presenting with concern for a wound infection and concern for osteomyelitis. He was coming from a nursing facility. The nursing staff indicated that his sacrum was becoming worse and felt it was becoming infected. He is a paraplegic and has been this way for the last 4 years. In the ED, he was afebrile, heart rate 82, respiratory to 16, blood pressure of 113/62, SpO2 of 95% on room air. Regarding his labs, he was mildly hyponatremic with a sodium of 130, otherwise his CMP was unremarkable. He had a mild leukocytosis of 12.5. He had a negative lactic acid. He had a CT of the pelvis which was concerning for osteomyelitis of the left inferior pubic ramus and sacrum and coccyx junction with erosive lucency with bone in contact with air. There is also bladder wall thickening. General surgery saw him, and plan for OR for debridement on April 24. They advised to continue to hold Eliquis and make sure he was n.p.o. prior to surgery. Regarding infection history, he has a history of Proteus UTIs that have been resistant to cefepime, but susceptible to meropenem. He also has had Pseudomonas UTIs which are susceptible to cefepime. He has also had Klebsiella and wound cultures susceptible to cefepime, but resistant to piperacillin tazobactam. Interval History: No overnight issues. Case and plan discussed with patient and bedside nurse. All questions answered. Discussed the case with infectious disease, and given the history of infections he has had and resistant patterns, decided that meropenem might be the best option for him. Adult diet Regular NPO diet with enteral medications 24HR INTAKE/OUTPUT: No intake or output data in the 24 hours ending 04/22/25 1238 Past Medical History: Medical History[1] LABS: CBC: Recent Labs 04/21/25 2257 WBC 12.5* RBC 4.03* HGB 11.7* HCT 35.6* MCV 88.3 RDW 14.9 PLT 372 BMP: Recent Labs 04/21/25 2257 NA 130* K 4.3 CL 99 CO2 21* BUN 10 CREATININE 0.65* GLUCOSE 202* CALCIUM 8.5* ANIONGAP 10 LIVER PROFILE: Recent Labs 04/21/25 2257 AST 13 ALT 6 BILITOT 0.5 ALKPHOS 116 PROT 7.6 PT/INR: No results for input(s): "PROTIME", "INR" in the last 72 hours. CARDIAC ENZYMES: No results for input(s): "TROPONINI" in the last 72 hours. Procalcitonin: No results found for: "PROCAL" COVID-19 PCR: No results for input(s): "COVID19" in the last 72 hours. Objective: Vitals: BP 98/58 (BP Location: Right arm, Patient Position: Sitting) Pulse 71 Temp 36.9 C (98.5 F) (Temporal) Resp 16 Ht 6' 3" (1.905 m) Wt 195 lb 6.4 oz (88.6 kg) SpO2 94% BMI 24.42 kg/m Pulse Ox: SpO2 Av.3 % Min: 94 % Max: 97 % Supplemental O2: Physical Exam Constitutional: General: He is not in acute distress. Cardiovascular: Rate and Rhythm: Normal rate. Pulses: Normal pulses. Heart sounds: No murmur heard. Pulmonary: Effort: Pulmonary effort is normal. No respiratory distress. Breath sounds: No wheezing. Abdominal: General: There is no distension. Palpations: Abdomen is soft. Tenderness: There is no abdominal tenderness. Neurological: Mental Status: He is alert. Medications: Scheduled PRN Scheduled Meds[2] PRN Meds[3] Continuous Continuous Meds[4] Assessment Acute, acute on chronic, unstable/uncontrolled chronic problems/diagnoses: Osteomyelitis of the sacrum, inferior pubic ramus and coccyx junction Presenting from nursing facility and with a history of being a paraplegic. He had a mild leukocytosis on presentation. He had a CT of the pelvis that demonstrated osteomyelitis of the sacrum, pubic ramus and coccyx. He has a history of a Proteus UTI that had been resistant to cefepime, but susceptible to meropenem. He had a Pseudomonas UTI in the past susceptible to cefepime. He also had a Klebsiella and wound culture so perceptible to cefepime but resistant to piperacillin/tazobactam. Plan - Infectious disease consulted - Discussed with ID and they agreed with my assessment to start meropenem -Pharmacy to dose vancomycin - Holding Eliquis - Debridement on April 24 Type 2 diabetes with hyperglycemia Blood glucose elevated Plan - Continue home Lantus for now 45 units Stable chronic problems affecting care, new non-acute diagnoses: History of paraplegia Depression/neuropathic pain-continue duloxetine Insomnia-continue mirtazapine Plan As a result of the above findings & factors, the following mgmt was pursued: - As above - am labs, replace lytes prn - PT/OT/CM/SW - delirium precautions: increase activity - DVT prophylaxis: SCDs and encourage ambulation Complexity: Acute illness or injury posing a threat to life or body function (HIGH). Risk: Use/consideration of therapy requiring intensive monitoring: parenteral nephrotoxic antibiotics, ex: gentamycin, vancomycin (anaphylaxis, MK/ATN, renal failure); BMP, trough levels (HIGH). Case discussed directly with infectious disease through secure chat Advance Directive: Full Code Anticipated Discharge - Date -TBD - Location - Skilled Facility - Pending the following -antibiotic plan and debridement Total time spent (which include face to face and non face to face encounters) : 35 minutes Toxic drug monitoring/narrow therapeutic index drug monitoring : # Drug name : Vancomycin # Route administered : IV # Method of monitoring : Serum creatinine Extended Emergency Contact Information Primary Emergency Contact: Ronald Reynolds Mobile Relation: Sibling Secondary Emergency Contact: SUMI REYNOLDS Mobile Relation: Daughter Kerwin Ricci DO Division of Hospitalist Medicine [facility] [1] Past Medical History: Diagnosis Date Abnormal posture Abscess, perineum Anemia BPH (benign prostatic hyperplasia) Chronic back pain Hematuria Hip sprain Hyperlipidemia Hypertension Major depressive disorder, single episode, unspecified MRSA (methicillin resistant staph aureus) culture positive spine 2021 Muscle wasting and atrophy, not elsewhere classified, left lower leg Muscle weakness (generalized) Neuropathy Obstructive and reflux uropathy, unspecified Osteoarthritis Other abnormalities of gait and mobility Other reduced mobility Paraplegia (HCC) Sciatica Spinal stenosis of lumbar region with neurogenic claudication Type 2 diabetes mellitus without complication (CMS/HCC) (HCC) Urinary calculus, unspecified UTI (urinary tract infection) [2] [Held by provider] apixaban, 5 mg, Oral, BID cefepime, 2,000 mg, IntraVENous, q8h [START ON 04/23/2025] chlorhexidine, , Topical, Daily DULoxetine, 30 mg, Oral, Daily ferrous sulfate, 325 mg, Oral, Daily with breakfast insulin glargine, 45 Units, SubCUTAneous, q AM insulin lispro, 0-18 Units, SubCUTAneous, TID WC And insulin lispro, 0-18 Units, SubCUTAneous, Nightly linaGLIPtin, 5 mg, Oral, Daily midodrine, 10 mg, Oral, TID mirtazapine, 7.5 mg, Oral, Nightly oxyCODONE, 15 mg, Oral, 4x daily polyethylene glycol (PEG) 3350, 17 g, Oral, BID pregabalin, 200 mg, Oral, TID senna-docusate sodium, 2 tablet, Oral, BID sodium chloride 0.9%, 10 mL, IntraCATHeter, q12h tamsulosin, 0.4 mg, Oral, Daily vancomycin, 1,500 mg, IntraVENous, q12h [3] PRN medications: acetaminophen OR acetaminophen, bisacodyl, bisacodyl, calcium carbonate, cyclobenzaprine, dextrose, dextrose, glucagon (rDNA), glucose, naloxone, ondansetron ODT OR ondansetron, polyethylene glycol (PEG) 3350, sodium chloride 0.9% [4] [START ON 04/24/2025] lactated Ringer's, 100 mL/hr Pharmacy to Dose Vancomycin - Progress Note Lab Results Component Value Date CREATININE 0.65 (L) 04/21/2025 BUN 10 04/21/2025 WBC 12.5 (H) 04/21/2025 VANCORANDOM 12.3 (L) 04/16/2024 VANCOTROUGH 12.4 04/22/2025 Doses, serum creatinine, and vancomycin levels interfaced automatically to Rabbit TV and data has been analyzed and interpreted. Infectious Diagnosis: SSTI Est CrCl: 144 mL/min (Cockcroft-Gault) Assessment: Current regimen vancomycin 1500 mg every 12 hours (16.9 mg/kg) Predicted AUC = 489 mg/L*hr (goal 400-600 mg/L*hr) PAUC = 92% (probability that AUC is >400 mg/L*hr) Pconc = <5% (probability that Ctrough is above 20 mcg/mL (toxicity)) Plan: Is the current dose therapeutic? [x] Yes - obtain next level on 04/25 unless predicted AUC is sub-/supra-therapeutic or change in serum creatinine. Trend serum creatinine. Trend AUC using Bayesian Modeling. Orders placed. DATE: 04/22/25 TIME: 7:20 AM Jack Salcedo PharmD Clinical Pharmacist Available via Secure Chat documented in this encounter [facility] 04-28-2025 Note Pharmacy to Dose Van comycin - Progress Note Lab Results Component Value Date CREATININE 0.64 (L) 04/27/2025 BUN 21 04/27/2025 WBC 8.0 04/27/2025 VANCORANDOM 12.3 (L) 04/16/2024 VANCOTROUGH 12.0 04/24/2025 Doses, serum creatinine, and vancomycin levels interfaced automatically to Rabbit TV and data has been analyzed and interpreted. Infectious Diagnosis: SSTI Est CrCl: >120 mL/min (Cockcroft-Gault) Assessment: Current regimen vancomycin 1500 mg every 12 hours (16.9 mg/kg) Predicted AUC = 569 mg/L*hr (goal 400-600 mg/L*hr) PAUC = >95% (probability that AUC is >400 mg/L*hr) Pconc = <5% (probability that Ctrough is above 20 mcg/mL (toxicity)) Plan: Is the current dose therapeutic? [x] Yes - obtain next level on 04/29 unless predicted AUC is sub-/supra-therapeutic or change in serum creatinine. [] No - Trend serum creatinine. Trend AUC using Bayesian Modeling. Orders placed. DATE: 04/28/25 TIME: 7:21 AM Lauryn Begum PharmD Clinical Pharmacist Available via Secure Chat [facility] 04-27-2025 Plan of care note Assuming coverage from Dr. Alvarez- s/p L ischial wound debridement with osteomyelitis. Additional organisms are being reported on OR cx. E raffinosus, Proteus, MRSA, Clostridium ramosum, enteric gosia, and skin gosia. Await Proteus sensitivities prior to completion of OPAT. Will provide final recommendations tomorrow. D/w TCC. Jo-Ann Ortiz MD [facility] 04-27-2025 Note Care Management Prog ress Note Short Medical why still here: pt being treated for osteomyelitis. Receiving IV unaysn and vanc with ID planning on extended IV course- awaiting opat/final plan. Planned Discharge Disposition: Plan for return to [facility]- does not need auth. Barriers/Today we still Wait: ID plan/opat. Length of Stay (Days): 5 GMLOS: 8.4 [facility] 04-27-2025 Progress note Formatting of t his note might be different from the original. Care Management Progress Note Short Medical why still here: pt being treated for osteomyelitis. Receiving IV unaysn and vanc with ID planning on extended IV course- awaiting opat/final plan. Planned Discharge Disposition: Plan for return to [facility]- does not need auth. Barriers/Today we still Wait: ID plan/opat. Length of Stay (Days): 5 GMLOS: 8.4 [facility] 04-27-2025 Nurse Note Patient dressings changed as per orders. Patient tolerated well. Left PICC dressing changed patient tolerated well [facility] 04-27-2025 Note Hospitalist Progress Note 04/27/2025 9:04 AM [phone]: Please page me for patient care issues. [phone]: Please page [facility] night Hospitalist for any issues. Subjective: Admit Date: 04/21/2025 PCP: Tab Dupont Room#: N4-455/N4-455 A Interval History: Patient seen and examined 64-year-old male admitted following infected sacral wound from nursing facility. Workup during this admission showed CT scan of pelvis highly suspicious for osteomyelitis of left inferior pubic rami and sacrum/coccyx junction with erosive lucency as well as bone in contact with the area. Overlying locules of air and edema and wound present in soft tissue. Bladder wall thickening, consider cystitis. Blood culture was negative. Wound culture from left buttock positive for enterococcal, right buttock positive for MRSA. Patient had debridement of wound, bone biopsy done on 04/24/2025. Seen by infectious disease team, wound care team, patient on broad-spectrum of antibiotic. Patient also had mild hyponatremia. He had leukocytosis resolved. Patient had anemia, hemoglobin of 10.4. He also had DM with hyperglycemia, A1c 7.9. Discussed with nursing staff, no new event overnight Patient denies any chest pain, abdominal pain, nausea, vomiting Having regular bowel movement No fever Lab data's / Imaging studies reviewed Accu-Cheks reviewed Blood culture negative Potassium 4, creatinine 0.6, hemoglobin 10.9 Past medical history : Medical History[1] Adult diet Regular; 4 carb choices (60 gm/meal) @[id number]@ Medications: Continuous Meds[2] Scheduled Meds[3] LABS: CBC: Recent Labs 04/25/256 04/26/25 0039 04/27/25 0304 WBC 9.5 7.3 8.0 RBC 3.62* 3.76* 3.78* HGB 10.4* 11.0* 10.9* HCT 32.6* 33.8* 34.0* MCV 90.1 89.9 89.9 RDW 14.8 14.8 14.9 PLT 421 386 363 BMP: Recent Labs 04/25/256 04/26/25 0039 04/27/25 0304 NA 134* 136 136 K 4.3 4.0 4.0 CL 101 103 104 CO2 26 27 29 BUN 14 19 21 CREATININE 0.73 0.62* 0.64* GLUCOSE 213* 155* 96 CALCIUM 8.2* 8.5* 8.6* ANIONGAP 7 6 3 LIVER PROFILE:No results for input(s): "AST", "ALT", "BILITOT", "ALKPHOS", "PROT" in the last 72 hours. No lab exists for component: LABALBU PT/INR: No results for input(s): "PROTIME", "INR" in the last 72 hours. CARDIAC ENZYMES: No results for input(s): "TROPONINI" in the last 72 hours. Procalcitonin: No results found for: "PROCAL" @RISRSLTSPECIALTY@ I reviewed: [x] laboratory results [x] radiographic results At the time of today's encounter. Pt was informed about the results. Objective: Vitals: BP 97/55 (BP Location: Right arm, Patient Position: Lying) Pulse 67 Temp 36.2 ?C (97.2 ?F) (Temporal) Resp 18 Ht 6' 3" (1.905 m) Wt 195 lb 6.4 oz (88.6 kg) SpO2 98% BMI 24.42 kg/m? Pulse Ox: SpO2 Av % Min: 96 % Max: 98 % Supplemental O2: General appearance: No apparent distress, HEENT: Eyes: Pallor noted Cardiovascular: S1S2 heard, RRR Respiratory: Clear to auscultation bilaterally anteriorly Abdomen: Soft, non-tender, non-distended, no mass palpable with normal bowel sounds, chronic indwelling Santana catheter noted. Neurology- Awake alert, answering questions Extremity- peripheral edema both lower extremities Left upper extremity single-lumen PICC line noted. Assessment Acute problems--- Osteomyelitis of sacrum, inferior left pubic rami and sacrum/coccyx junction, status post debridement of left ischial wound/bone biopsy done on 04/24/2025, right buttock wound culture positive for MRSA and moderate anaerobic gram-negative bacilli, left buttock wound culture positive for Enterococcus raffinosus, Clostridium ramosum Hyponatremia, resolved Leukocytosis on admission--- resolved DM with hyperglycemia Sacrum stage IV pressure injury, POA Left ischium stage IV pressure injury, POA Debility Iron deficiency anemia Chronic issue--- Paraplegia Hyperlipidemia Depression Peripheral neuropathy DM History of chronic indwelling Santana catheter Anemia Peripheral neuropathy Gastroesophageal flux disease Plan Continue antibiotics per infectious disease team Seen by general surgery team, recommendation noted Continue high-dose sliding scale insulin, increase Lantus dose to 28 units daily Wound care team following. PT recommended [facility] Continue IV Venofer as ordered for FABIANA Hold ferrous sulfate On Eliquis for DVT prophylaxis Continue rest of medication as ordered Patient was informed about all work up and treatment plan Discussed with nursing staff and TCC regarding management/ discharge plan. Patient's brother Ronald was informed about all workup treatment plan on 04/26/2025 Toxic drug monitoring/narrow therapeutic index drug monitoring : # Drug name : Insulin, vancomycin # Route administered : Subcu, IV # Method of monitoring : Accu-Chek, vancomycin level Extended Emergency Contact Information Primary Emergency Con (more content not included)... [facility] 04-27-2025 Note Pharmacy to Dose Van comycin - Progress Note Lab Results Component Value Date CREATININE 0.64 (L) 04/27/2025 BUN 21 04/27/2025 WBC 8.0 04/27/2025 VANCORANDOM 12.3 (L) 04/16/2024 VANCOTROUGH 12.0 04/24/2025 Doses, serum creatinine, and vancomycin levels interfaced automatically to Rabbit TV and data has been analyzed and interpreted. Infectious Diagnosis: SSTI Est CrCl: >120 mL/min (Cockcroft-Gault) Assessment: Current regimen vancomycin 1500 mg every 12 hours (16.9 mg/kg) Predicted AUC = 569 mg/L*hr (goal 400-600 mg/L*hr) PAUC = >95% (probability that AUC is >400 mg/L*hr) Pconc = <5% (probability that Ctrough is above 20 mcg/mL (toxicity)) Plan: Is the current dose therapeutic? [x] Yes - obtain next level on 04/29 unless predicted AUC is sub-/supra-therapeutic or change in serum creatinine. Trend serum creatinine. Trend AUC using Bayesian Modeling. Orders placed. DATE: 04/27/25 TIME: 7:33 AM Judy UriasD Clinical Pharmacist Available via Secure Chat [facility] 04-26-2025 Note Care Management Prog ress Note Short Medical why still here: Pt continues to be treated for osteomyelitis. Receiving IV merrem q8hr with plan for 6wk tx per ID-final plan not complete. Planned Dis[facility] Disposition[facility] will need auth d/t skilled need for IV atb tx. Facility updated and asked to submit for auth. ADELINE complete. Barriers/Today we still Wait: Plan from ID/line placement and auth. Length of Stay (Days): 4 GMLOS: 8.4 [facility] 04-26-2025 Progress note Formatting of t his note might be different from the original. Care Management Progress Note Short Medical why still here: Pt continues to be treated for osteomyelitis. Receiving IV merrem q8hr with plan for 6wk tx per ID-final plan not complete. Planned Discharge Disposition: plan for return to [facility]- will need auth d/t skilled need for IV atb tx. Facility updated and asked to submit for auth. ADELINE complete. Barriers/Today we still Wait: Plan from ID/line placement and auth. Length of Stay (Days): 4 GMLOS: 8.4 [facility] 04-26-2025 Note Hospitalist Progress Note 04/26/2025 9:58 AM [phone]: Please page me for patient care issues. [phone]: Please page [facility] night Hospitalist for any issues. Subjective: Admit Date: 04/21/2025 PCP: Tab Dupont Room#: N4-455/N4-455 A Interval History: Patient seen and examined 64-year-old male admitted following infected sacral wound from nursing facility. Workup during this admission showed CT scan of pelvis highly suspicious for osteomyelitis of left inferior pubic rami and sacrum/coccyx junction with erosive lucency as well as bone in contact with the area. Overlying locules of air and edema and wound present in soft tissue. Bladder wall thickening, consider cystitis. Blood culture was negative. Wound culture from left buttock positive for enterococcal, right buttock positive for MRSA. Patient had debridement of wound, bone biopsy done on 04/24/2025. Seen by infectious disease team, wound care team, patient on broad-spectrum of antibiotic. Patient also had mild hyponatremia. He had leukocytosis resolved. Patient had anemia, hemoglobin of 10.4. He also had DM with hyperglycemia, A1c 7.9. Patient had large bowel movement today Denies any abdominal pain, chest pain, shortness of breath No nausea, vomiting, fever spike Blood pressure readings reviewed Discussed with nursing staff, no new event overnight Lab data's / Imaging studies reviewed Accu-Cheks reviewed Blood culture negative Potassium 4, creatinine 0.6, hemoglobin 11, iron profile 60 Past medical history : Medical History[1] Adult diet Regular; 4 carb choices (60 gm/meal) @[id number]@ Medications: Continuous Meds[2] Scheduled Meds[3] LABS: CBC: Recent Labs 04/24/2520504/25/255504/26/25 0039 WBC 9.3 9.5 7.3 RBC 3.68* 3.62* 3.76* HGB 10.6* 10.4* 11.0* HCT 32.8* 32.6* 33.8* MCV 89.1 90.1 89.9 RDW 14.9 14.8 14.8 PLT 367 421 386 BMP: Recent Labs 04/24/2520504/25/255504/26/2538 NA 136 134* 136 K 4.0 4.3 4.0 CL 101 101 103 CO2 27 26 27 BUN 7* 14 19 CREATININE 0.59* 0.73 0.62* GLUCOSE 113 213* 155* CALCIUM 8.4* 8.2* 8.5* ANIONGAP 8 7 6 LIVER PROFILE:No results for input(s): "AST", "ALT", "BILITOT", "ALKPHOS", "PROT" in the last 72 hours. No lab exists for component: LABALBU PT/INR: No results for input(s): "PROTIME", "INR" in the last 72 hours. CARDIAC ENZYMES: No results for input(s): "TROPONINI" in the last 72 hours. Procalcitonin: No results found for: "PROCAL" @RISRSLTSPECIALTY@ I reviewed: [x] laboratory results [x] radiographic results At the time of today's encounter. Pt was informed about the results. Objective: Vitals: BP 100/56 (BP Location: Right arm, Patient Position: Lying) Pulse 67 Temp 36.6 ?C (97.9 ?F) (Temporal) Resp 20 Ht 6' 3" (1.905 m) Wt 195 lb 6.4 oz (88.6 kg) SpO2 95% BMI 24.42 kg/m? Pulse Ox: SpO2 Av.5 % Min: 95 % Max: 96 % Supplemental O2: General appearance: No apparent distress, HEENT: Eyes: Pallor noted Oral: Tongue is semi-moist Cardiovascular: S1S2 heard, RRR Respiratory: Clear to auscultation bilaterally anteriorly Abdomen: Soft, non-tender, non-distended, no mass palpable with normal bowel sounds, chronic indwelling Santana catheter noted. Neurology- Awake alert, answering questions Extremity- peripheral edema both lower extremities Left upper extremity single-lumen PICC line noted Assessment Acute problems--- Osteomyelitis of sacrum, inferior left pubic rami and sacrum/coccyx junction, status post debridement of left ischial wound/bone biopsy done on 04/24/2025, right buttock wound culture positive for MRSA, left buttock wound culture positive for Enterococcus Hyponatremia, resolved Leukocytosis on admission resolved DM with hyperglycemia Sacrum stage IV pressure injury, POA Left ischium stage IV pressure injury, POA Debility Iron deficiency anemia Chronic issue--- Paraplegia Hyperlipidemia Depression Peripheral neuropathy DM History of chronic indwelling Santana catheter Anemia Peripheral neuropathy Gastroesophageal flux disease Plan Continue antibiotics per infectious disease team Seen by general surgery team, recommendation noted Continue high-dose sliding scale insulin, Lantus to 25 units daily Wound care team following. PT recommended [facility] facility IV Venofer for iron deficiency anemia ordered x 2 dose Hold ferrous sulfate Discussed with rn neurosurgical by epic chat--okay to restart anticoagulation today Continue rest of medication as ordered Patient was informed about all work up and treatment plan Discussed with nursing staff and TCC regarding management/ discharge plan. Patient's brother Ronald was informed about all workup treatment plan on 04/26/2025 Toxic drug monitoring/narrow therapeutic index drug monitoring : # Drug name : Insulin, vancomycin # Route administered : Subcu, IV # Method of monitoring : Accu-C (more content not included)... [facility] 04-26-2025 Note Pharmacy to Dose Van comycin - Progress Note Lab Results Component Value Date CREATININE 0.62 (L) 04/26/2025 BUN 19 04/26/2025 WBC 7.3 04/26/2025 VANCORANDOM 12.3 (L) 04/16/2024 VANCOTROUGH 12.0 04/24/2025 Doses, serum creatinine, and vancomycin levels interfaced automatically to Rabbit TV and data has been analyzed and interpreted. Infectious Diagnosis: SSTI Est CrCl: >120 mL/min (Cockcroft-Gault) Assessment: Current regimen vancomycin 1500 mg every 12 hours (16.9 mg/kg) Predicted AUC = 564 mg/L*hr (goal 400-600 mg/L*hr) PAUC = >95%% (probability that AUC is >400 mg/L*hr) Pconc = <5%% (probability that Ctrough is above 20 mcg/mL (toxicity)) Plan: Is the current dose therapeutic? [x] Yes - obtain next level on 04/29/25 unless predicted AUC is sub-/supra-therapeutic or change in serum creatinine. Trend serum creatinine. Trend AUC using Bayesian Modeling. Orders placed. DATE: 04/26/25 TIME: 8:55 AM Brunilda Gomez, PharmD Clinical Pharmacist Available via Secure [employer] [facility] 04-25-2025 Note Hospitalist Progress Note 04/25/2025 5:34 PM [phone]: Please page me for patient care issues. [phone]: Please page [facility] night Hospitalist for any issues. Subjective: Admit Date: 04/21/2025 PCP: Tab Dupont Room#: N4-086/[id number] B Interval History: Patient seen and examined 64-year-old male admitted following infected sacral wound from nursing facility. Workup during this admission showed CT scan of pelvis highly suspicious for osteomyelitis of left inferior pubic rami and sacrum/coccyx junction with erosive lucency as well as bone in contact with the area. Overlying locules of air and edema and wound present in soft tissue. Bladder wall thickening, consider cystitis. Blood culture was negative. Wound culture from left buttock positive for enterococcal, right buttock positive for MRSA. Patient had debridement of wound, bone biopsy done on 04/24/2025. Seen by infectious disease team, wound care team, patient on broad-spectrum of antibiotic. Patient also had mild hyponatremia. He had leukocytosis resolved. Patient had anemia, hemoglobin of 10.4. He also had DM with hyperglycemia, A1c 7.9. Denies any chest pain, shortness of breath, cough No nausea, vomiting, abdominal pain No fever spike noted Lab data's / Imaging studies reviewed Sodium 134, creatinine 0.7, lactic acid 1.1, hemoglobin 10.4 Accu-Cheks reviewed Blood culture negative Past medical history : Medical History[1] Adult diet Regular; 4 carb choices (60 gm/meal) @[id number]@ Medications: Continuous Meds[2] Scheduled Meds[3] LABS: CBC: Recent Labs 04/23/25 0013 04/24/25 0206 04/25/25 0056 WBC 9.4 9.3 9.5 RBC 3.47* 3.68* 3.62* HGB 9.9* 10.6* 10.4* HCT 30.7* 32.8* 32.6* MCV 88.5 89.1 90.1 RDW 14.9 14.9 14.8 PLT 352 367 421 BMP: Recent Labs 04/23/25 0013 04/24/25 02004/25/25 0056 NA 133* 136 134* K 3.8 4.0 4.3 CL 105 101 101 CO2 21* 27 26 BUN 8* 7* 14 CREATININE 0.54* 0.59* 0.73 GLUCOSE 133* 113 213* CALCIUM 8.1* 8.4* 8.2* ANIONGAP 7 8 7 LIVER PROFILE:No results for input(s): "AST", "ALT", "BILITOT", "ALKPHOS", "PROT" in the last 72 hours. No lab exists for component: LABALBU PT/INR: No results for input(s): "PROTIME", "INR" in the last 72 hours. CARDIAC ENZYMES: No results for input(s): "TROPONINI" in the last 72 hours. Procalcitonin: No results found for: "PROCAL" @[email or web address]@ I reviewed: [x] laboratory results [x] radiographic results At the time of today's encounter. Pt was informed about the results. Objective: Vitals: BP 113/66 (BP Location: Right arm, Patient Position: Sitting) Pulse 69 Temp 36.1 ?C (96.9 ?F) (Temporal) Resp 21 Ht 6' 3" (1.905 m) Wt 195 lb 6.4 oz (88.6 kg) SpO2 97% BMI 24.42 kg/m? Pulse Ox: SpO2 Av % Min: 95 % Max: 97 % Supplemental O2: General appearance: No apparent distress, HEENT: Eyes: Pallor noted Oral: Tongue is semi-moist Cardiovascular: S1S2 heard, RRR Respiratory: Clear to auscultation bilaterally anteriorly Abdomen: Soft, non-tender, non-distended, no mass palpable with normal bowel sounds, chronic indwelling Santana catheter noted. Neurology- Awake alert, answering questions Extremity- peripheral edema both lower extremities Assessment Acute problems-- Osteomyelitis of sacrum, inferior left pubic rami and sacrum/coccyx junction, status post debridement of left ischial wound/bone biopsy done on 04/24/2025, right buttock wound culture positive for MRSA, left buttock wound culture positive for Enterococcus Hyponatremia Leukocytosis on admission resolved DM with hyperglycemia Sacrum stage IV pressure injury, POA Left ischium stage IV pressure injury, POA Debility Anemia Chronic issue-- Paraplegia Hyperlipidemia Depression Peripheral neuropathy DM History of chronic indwelling Santana catheter Anemia Peripheral neuropathy Gastroesophageal flux disease Plan Continue antibiotics per infectious disease team Seen by general surgery team, recommendation noted Change diet to ADA 1800 diet Continue high-dose sliding scale insulin, increase dose of Lantus to 25 units daily Wound care team following PT recommended [facility] facility Check iron profile Patient can be restarted back on anticoagulation starting 04/26/2025. Continue rest of medication as ordered Labs ordered for AM Patient was informed about all work up and treatment plan Discussed with nursing staff and TCC regarding management/ discharge plan. Toxic drug monitoring/narrow therapeutic index drug monitoring : # Drug name : Insulin, vancomycin # Route administered : Subcu, IV # Method of monitoring : Accu-Chek, vancomycin level Extended Emergency Contact Information Primary Emergency Contact: Ronald Reynolds Mobile Relation: Sibling Secondary Emergency Contact: SUMI REYNOLDS Mobile Relation: Daughter Advance D (more content not included)... [facility] 04-25-2025 Note Care Management Prog ress Note Short Medical why still here: Pt continues to be treated for osteomyelitis. ID following- receiving IV merrem and vanc- anticipate chcf tx. Planned Discharge Disposition: Pt from [facility]- met with pt this afternoon- introduced self and role. Verified return when stable. Will need auth if pt has skilled needs (IV atb greater than once a day will qualify). Barriers/Today we still Wait: ID plan/line placement/opat. Length of Stay (Days): 3 GMLOS: 8.4 [facility] 04-25-2025 Progress note Formatting of t his note might be different from the original. Care Management Progress Note Short Medical why still here: Pt continues to be treated for osteomyelitis. ID following- receiving IV merrem and vanc- anticipate chcf tx. Planned Discharge Disposition: Pt from [facility]- met with pt this afternoon- introduced self and role. Verified return when stable. Will need auth if pt has skilled needs (IV atb greater than once a day will qualify). Barriers/Today we still Wait: ID plan/line placement/opat. Length of Stay (Days): 3 GMLOS: 8.4 [facility] 04-25-2025 Note [facility] - Infectious Diseases Attending Progress Note Subjective: Khalida cute events POD#1 s/p I+D of L ischial decub ulcer down to bone- cultures obtained. Insensate, denies pain to butttocks. No cough or SOB. Objective: Vitals: Patient Vitals for the past 24 hrs: BP Temp Temp src Pulse Resp SpO2 04/25/25 0800 -- -- -- 69 -- -- 04/25/25 0755 113/66 36.1 ?C (96.9 ?F) Temporal 72 -- 97 % 04/24/252024 98/63 36.6 ?C (97.8 ?F) Temporal 78 21 95 % Physical Exam Vitals reviewed. Constitutional: General: He is not in acute distress. Appearance: Normal appearance. He is not ill-appearing. Pulmonary: Effort: Pulmonary effort is normal. Musculoskeletal: General: Signs of injury (wound not examined) present. Skin: Coloration: Skin is not jaundiced. Findings: No erythema or rash. Neurological: Mental Status: He is alert. Motor: Weakness (paraplegia unchanged) present. Psychiatric: Mood and Affect: Mood normal. Thought Content: Thought content normal. Labs: Lab Results Component Value Date/Time NA 134 (L) 04/25/2025 005 K 4.3 04/25/2025 0056 CL 101 04/25/2025 0056 CO2 26 04/25/2025 0056 BUN 14 04/25/2025 0056 CREATININE 0.73 04/25/2025 005 CREATININE 0.57 (L) 10/25/2020 0457 GLUCOSE 213 (H) 04/25/2025 0056 CALCIUM 8.2 (L) 04/25/2025 0056 PROT 7.6 04/21/2025 2257 BILITOT 0.5 04/21/2025 225 ALKPHOS 116 04/21/2025 2257 AST 13 04/21/2025 2257 ALT 6 04/21/2025 225 PROCAL 27.06 (H) 04/14/2024 2318 Lab Results Component Value Date/Time WBC 9.5 04/25/2025 0056 HGB 10.4 (L) 04/25/2025 0056 HGB 13.7 04/14/2024 1730 HCT 32.6 (L) 04/25/2025 0056 PLT 421 04/25/2025 0056 LYMPHOPCT 20.7 04/25/2025 0056 LYMPHOPCT 32 04/20/2024 0359 MONOPCT 9.3 04/25/2025 0056 MONOPCT 10 04/20/2024 0359 BASOPCT 0.4 04/25/2025 0056 BASOPCT 1 04/19/2024 0428 NEUTROABS 6.5 04/25/2025 0056 Micro: 04/24 tissue cx: E raffinosus so far 04/21 Wound cx: MRSA, anaerobic GNR, not B fragilis Lines: PIV Radiography/Echo/Other: reviewed Antimicrobials, Start/End Dates: Vancomycin Cefepime to Meropenem Impression: 64 M admitted from [facility] with: Worsening decubitus ulcer , concerning for wound infection, with imaging c/w acute OM- s/p I+D yesterday- confirmed acute OM to L ischial ulcer.. Agree with broad spectrum coverage, including Meropenem given MDRO pathogens isolated recently. Clinically not septic appearing NGB , chronic santana requiring H/o MRSA Epidural abscess, despite surery form 2021, now with paraplegia Tobacco use Not septic-appearing at this time, HD stable. Plan: Same regimen and de-escalate as necessary. Prolonged course up to 6 weeks at least. Needs PICC. Continue local wound care and offloading to optimize wound healing. Will follow. Case d/wCM. [facility] 04-25-2025 Note Pharmacy to Dose Van comycin - Progress Note Lab Results Component Value Date CREATININE 0.73 04/25/2025 BUN 14 04/25/2025 WBC 9.5 04/25/2025 VANCORANDOM 12.3 (L) 04/16/2024 VANCOTROUGH 12.0 04/24/2025 Doses, serum creatinine, and vancomycin levels interfaced automatically to Rabbit TV and data has been analyzed and interpreted. Infectious Diagnosis: SSTI Est CrCl: 128.6 mL/min (Cockcroft-Gault) Assessment: Current regimen vancomycin 1500 mg every 12 hours (16.9 mg/kg) Predicted AUC = 590 mg/L*hr (goal 400-600 mg/L*hr) PAUC = >95% (probability that AUC is >400 mg/L*hr) Pconc = <5% (probability that Ctrough is above 20 mcg/mL (toxicity)) Plan: Is the current dose therapeutic? [x] Yes - obtain next level on 04/29 unless predicted AUC is sub-/supra-therapeutic or change in serum creatinine. [] No Trend serum creatinine. Trend AUC using Bayesian Modeling. Orders placed. DATE: 04/25/25 TIME: 9:15 AM Bridgette Virk, JudyD PGY1 Signal Maintenance Technician Available via Secure Chat [facility] 04-25-2025 Note [facility] l Surgery Daily Progress Note ADMIT DATE: 04/21/2025 TODAY'S DATE: 04/25/2025 HPI: Anmol Reynolds is a 64 y.o. male with significant past medical history of paraplegia s/p surgical complication with Dr. Ashley at [facility], HLD, HTN, MDD, OA, a-fib on eliquis, chronic sacral wounds who presents from his care home after he states the nurses have become more concerned about his sacral wound. Surgery was consulted for evaluation of these sacral wounds and concern for osteomyelitis of the left inferior pubic ramus. Patient states that he is feeling well overall. He reports he was brought in due to concerns for his sacral wound. Reports he is unsure if there has been increased drainage or redness but does endorse having infections requiring debridement prior to this. He is unsure why he takes Eliquis. On evaluation patient was HDS, afebrile. Labs reviewed significant for: WBC 12.5, HGB 11.7. CMP largely unremarkable. Wound cultures: many gram negative bacilli, gram + cocci in pairs and chains and clusters, gram positive bacilli. Imaging demonstrated: CT Pelvis- erosive lucency and bone in contact with air at left inferior pubic ramus and sacrum/coccyx junction. Overlying air and edema present in soft tissue along the wound. SUBJECTIVE: Very angry about not having his air mattress Denies fevers, chills Pain controlled, burning in his calf Interval history: 04/22 Admitted and ACS consult for sacral wound, concern for osteomyelitis 04/24 To OR for sacral wound debridement 04/25 dressing changed OBJECTIVE: VITALS: BP 113/66 (BP Location: Right arm, Patient Position: Sitting) Pulse 72 Temp 36.1 ?C (96.9 ?F) (Temporal) Resp 21 Ht 1.905 m (6' 3") Wt 88.6 kg (195 lb 6.4 oz) SpO2 97% BMI 24.42 kg/m? INTAKE/OUTPUT: Intake/Output Summary (Last 24 hours) at 04/25/2025 0759 Last data filed at 04/25/2025 0358 Gross per 24 hour Intake 2900 ml Output 2720 ml Net 180 ml I/O last 3 completed shifts: In: 2900 (32.7 mL/kg) [I.V.:600 (6.8 mL/kg); IV Piggyback:2300] Out: 2720 (30.7 mL/kg) [Urine:2700 (0.8 mL/kg/hr); Blood:20] Weight: 88.6 kg No intake/output data recorded. PHYSICAL EXAM: Gen: NAD, A&Ox3, pain well controlled. Very upset about not having Heart: RRR, well perfused Lungs: symmetric chest rise, normal work of breathing Abd: soft, non tender, non distended. Non rigid. Ext: no c/c/e no gross deformities Skin: sacral wound present, wound bed pink, dressing changed LABS Results from last 7 days Lab Units 04/25/25 0056 04/24/25 0206 04/23/25 0013 WBC AUTO 10*3/uL 9.5 9.3 9.4 HEMOGLOBIN g/dL 10.4* 10.6* 9.9* HEMATOCRIT % 32.6* 32.8* 30.7* PLATELETS 10*3/uL 421 367 352 Results from last 7 days Lab Units 04/25/25 0056 04/24/25 0206 04/23/25 0013 SODIUM mmol/L 134* 136 133* POTASSIUM mmol/L 4.3 4.0 3.8 CHLORIDE mmol/L 101 101 105 CO2 mmol/L 26 27 21* BUN mg/dL 14 7* 8* CREATININE mg/dL 0.73 0.59* 0.54* GLUCOSE mg/dL 213* 113 133* CALCIUM mg/dL 8.2* 8.4* 8.1* Results from last 7 days Lab Units 04/21/25 2257 ALK PHOS U/L 116 BILIRUBIN TOTAL mg/dL 0.5 PROTEIN TOTAL g/dL 7.6 ALT U/L 6 AST U/L 13 LIPASE Date Value Ref Range Status 04/14/2024 <10 (L) 23 - 300 U/L Final 04/14/2024 12 (L) 23 - 300 U/L Final Current Inpatient Medications Scheduled Meds:Scheduled Meds[1] Continuous Infusions:Continuous Meds[2] PRN Meds:PRN Meds[3] ASSESSMENT AND PLAN: 64 y.o. male with paraplegia, chronic sacral wounds and c/f osteomyelitis of his left inferior pubic ramus S/P debridement on 04/24 - No further surgical intervention planned - Consult to wound care - Daily wet to dry dressing changes - Surgery to sign off, call with questions or concerns Maureen Garduno, JOE - DOCUMENT MANAGEMENT TECHNICIAN 04/25/25 7:58 AM [1] [Held by provider] apixaban, 5 mg, Oral, BID chlorhexidine, , Topical, Daily DULoxetine, 30 mg, Oral, Daily ferrous sulfate, 325 mg, Oral, Daily with breakfast insulin glargine, 22 Units, SubCUTAneous, q AM insulin lispro, 0-18 Units, SubCUTAneous, TID WC insulin lispro, 0-18 Units, SubCUTAneous, Nightly meropenem, 2,000 mg, IntraVENous, q8h midodrine, 10 mg, Oral, TID mirtazapine, 7.5 mg, Oral, Nightly oxyCODONE, 15 mg, Oral, 4x daily polyethylene glycol (PEG) 3350, 17 g, Oral, BID pregabalin, 200 mg, Oral, TID senna-docusate sodium, 2 tablet, Oral, BID sodium chloride 0.9%, 10 mL, IntraCATHeter, q12h tamsulosin, 0.4 mg, Oral, Daily vancomycin, 1,500 mg, IntraVENous, q12h [2] [3] PRN medications: acetaminophen OR acetaminophen, bisacodyl, bisacodyl, calcium carbonate, cyclobenzaprine, dextrose, dextrose, glucagon (rDNA), glucose, naloxone, ondansetron ODT OR ondansetron, polyethylene glycol (PEG) 3350, sodium chloride 0.9% [facility] 04-24-2025 Note Hospitalist Progress Note 04/24/2025 Subjective: Admit Date: 04/21/2025 PCP: Tab Dupont Room#: [id number]/[id number] B BRIEF HOSPITAL COURSE: 64-year-old male presenting with concern for a wound infection and concern for osteomyelitis. He was coming from a nursing facility. The nursing staff indicated that his sacrum was becoming worse and felt it was becoming infected. He is a paraplegic and has been this way for the last 4 years. In the ED, he was afebrile, heart rate 82, respiratory to 16, blood pressure of 113/62, SpO2 of 95% on room air. Regarding his labs, he was mildly hyponatremic with a sodium of 130, otherwise his CMP was unremarkable. He had a mild leukocytosis of 12.5. He had a negative lactic acid. He had a CT of the pelvis which was concerning for osteomyelitis of the left inferior pubic ramus and sacrum and coccyx junction with erosive lucency with bone in contact with air. There is also bladder wall thickening. General surgery saw him, and plan for OR for debridement on April 24. They advised to continue to hold Eliquis and make sure he was n.p.o. prior to surgery. Regarding infection history, he has a history of Proteus UTIs that have been resistant to cefepime, but susceptible to meropenem. He also has had Pseudomonas UTIs which are susceptible to cefepime. He has also had Klebsiella and wound cultures susceptible to cefepime, but resistant to piperacillin tazobactam. Interval History: He had excisional debridement of the wound with osteomyelitis today. A bone biopsy was taken and sent for culture and pathology. Adult diet Regular; 5 carb choices (75 gm/meal) 24HR INTAKE/OUTPUT: Intake/Output Summary (Last 24 hours) at 04/24/20252251 Last data filed at 04/24/2025 2100 Gross per 24 hour Intake 600 ml Output 1970 ml Net -1370 ml Past Medical History: Medical History[1] LABS: CBC: Recent Labs 04/21/25225604/23/25 0013 04/24/25 0206 WBC 12.5* 9.4 9.3 RBC 4.03* 3.47* 3.68* HGB 11.7* 9.9* 10.6* HCT 35.6* 30.7* 32.8* MCV 88.3 88.5 89.1 RDW 14.9 14.9 14.9 PLT 372 352 367 BMP: Recent Labs 04/21/25225604/23/25 0013 04/24/25 0206 NA 130* 133* 136 K 4.3 3.8 4.0 CL 99 105 101 CO2 21* 21* 27 BUN 10 8* 7* CREATININE 0.65* 0.54* 0.59* GLUCOSE 202* 133* 113 CALCIUM 8.5* 8.1* 8.4* ANIONGAP 10 7 8 LIVER PROFILE: Recent Labs 04/21/252256 AST 13 ALT 6 BILITOT 0.5 ALKPHOS 116 PROT 7.6 PT/INR: No results for input(s): "PROTIME", "INR" in the last 72 hours. CARDIAC ENZYMES: No results for input(s): "TROPONINI" in the last 72 hours. Procalcitonin: No results found for: "PROCAL" COVID-19 PCR: No results for input(s): "COVID19" in the last 72 hours. Objective: Vitals: BP 98/63 (BP Location: Right arm, Patient Position: Lying) Pulse 78 Temp 36.6 ?C (97.8 ?F) (Temporal) Resp 21 Ht 6' 3" (1.905 m) Wt 195 lb 6.4 oz (88.6 kg) SpO2 95% BMI 24.42 kg/m? Pulse Ox: SpO2 Av.4 % Min: 92 % Max: 100 % Supplemental O2: Physical Exam Constitutional: General: He is not in acute distress. Cardiovascular: Rate and Rhythm: Normal rate. Pulses: Normal pulses. Heart sounds: No murmur heard. Pulmonary: Effort: Pulmonary effort is normal. No respiratory distress. Breath sounds: No wheezing. Abdominal: General: There is no distension. Palpations: Abdomen is soft. Tenderness: There is no abdominal tenderness. Neurological: Mental Status: He is alert. Medications: Scheduled PRN Scheduled Meds[2] PRN Meds[3] Continuous Continuous Meds[4] Assessment Acute, acute on chronic, unstable/uncontrolled chronic problems/diagnoses: Osteomyelitis of the sacrum, inferior pubic ramus and coccyx junction Presenting from nursing facility and with a history of being a paraplegic. He had a mild leukocytosis on presentation. He had a CT of the pelvis that demonstrated osteomyelitis of the sacrum, pubic ramus and coccyx. He has a history of a Proteus UTI that had been resistant to cefepime, but susceptible to meropenem. He had a Pseudomonas UTI in the past susceptible to cefepime. He also had a Klebsiella and wound culture so perceptible to cefepime but resistant to piperacillin/tazobactam. Had excisional debridement and bone biopsy on 04/24 Plan - Infectious disease consulted - Vancomycin and meropenun - Holding Eliquis Type 2 diabetes with hyperglycemia Blood glucose elevated Plan - reducing morning lantus by about 50% due to NPO status at midnight -holding lispro because NPO Stable chronic problems affecting care, new non-acute diagnoses: History of paraplegia Depression/neuropathic pain-continue duloxetine Insomnia-continue mirtazapine Hx of atrial fibrillation-holding eliquis and to resume 48hrs after surgery Plan As a result of the above findings & factors, the following mgmt was pursued: - As above - am labs, replace lytes prn - PT/OT/CM/SW - delirium precautions: increase ac (more content not included)... [facility] 04-24-2025 Note Patient declined smo rl cessation counseling. Accepting of handout with contact information for future reference. [facility] 04-24-2025 Progress note Formatting of t his note might be different from the original. SW consult-SDOH transportation. SW reviewed chart. Pt is a LTC resident of [facility]. [place] is responsible for pt transportation for medical appointments. . [facility] 04-24-2025 Note Return Referral plac ed to [facility] via [facility] per TCC request. Await review and response regarding ability to accept. TCC notified. [facility] 04-24-2025 Progress note Formatting of t his note might be different from the original. Return Referral placed to [facility] via [facility] per TCC request. Await review and response regarding ability to accept. TCC notified. [facility] 04-24-2025 Note Care Management Prog ress Note Short Medical why still here: Pt adm for tx/evaluation of osteomyelitis. OR this am with surgery for debridement of sacral and ischial wounds. Receiving IV merrem and vanc with ID following- anticipate chcf needs. 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 Attempted to confirm return with pt however pt sleeping this am- unable to arouse for conversation. Barriers/Today we still Wait: IV atb/ID plan. Length of Stay (Days): 2 GMLOS: 4 [facility] 04-24-2025 Progress note Formatting of t his note might be different from the original. Care Management Progress Note Short Medical why still here: Pt adm for tx/evaluation of osteomyelitis. OR this am with surgery for debridement of sacral and ischial wounds. Receiving IV merrem and vanc with ID following- anticipate chcf needs. 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 Attempted to confirm return with pt however pt sleeping this am- unable to arouse for conversation. Barriers/Today we still Wait: IV atb/ID plan. Length of Stay (Days): 2 GMLOS: 4 [facility] 04-24-2025 Note Pharmacy to Dose Van comycin - Progress Note Lab Results Component Value Date CREATININE 0.59 (L) 04/24/2025 BUN 7 (L) 04/24/2025 WBC 9.3 04/24/2025 VANCORANDOM 12.3 (L) 04/16/2024 VANCOTROUGH 12.0 04/24/2025 Doses, serum creatinine, and vancomycin levels interfaced automatically to Rabbit TV and data has been analyzed and interpreted. Infectious Diagnosis: SSTI Est CrCl: >125 mL/min (Cockcroft-Gault) Assessment: Current regimen vancomycin 1500 mg every 12 hours (16.9 mg/kg) Predicted AUC = 555 mg/L*hr (goal 400-600 mg/L*hr) PAUC = >95% (probability that AUC is >400 mg/L*hr) Pconc = <5% (probability that Ctrough is above 20 mcg/mL (toxicity)) Plan: Is the current dose therapeutic? [x] Yes - obtain next level on 04/29/25 unless predicted AUC is sub-/supra-therapeutic or change in serum creatinine. [] No Trend serum creatinine. Trend AUC using Bayesian Modeling. Orders placed. DATE: 04/24/25 TIME: 10:29 AM eJwell Gambino PharmD Clinical Pharmacist Available via Secure Chat [facility] 04-24-2025 Note Patient: Anmol Franco Giv en Procedure Summary Date: 04/24/25 Room / Location: [address] Operating Room Anesthesia Start: 729 Anesthesia Stop: 844 Procedure: Sacral wound DEBRIDEMENT SKIN SUBCUTANEOUS TISSUE MUSCLE (Bilateral) Diagnosis: Other acute osteomyelitis, other site (HCC) Pressure injury of coccygeal region, stage 3 (HCC) Surgeons: Kaela Durand MD Responsible Provider: Kathrin Miller MD Anesthesia Type: general ASA Status: 3 Anesthesia Type: general Vitals Value Taken Time BP 90/52 04/24/25 09:00 Temp 36.4 ?C (97.5 ?F) 04/24/25 08:40 Pulse 66 04/24/25 09:09 Resp 16 04/24/25 08:45 SpO2 95 % 04/24/25 09:09 Vitals shown include unfiled device data. Anesthesia Post Evaluation Patient location during evaluation: PACU Patient participation: complete - patient participated Level of consciousness: awake and alert Pain management: satisfactory to patient Airway patency: patent Dental Injury: no Cardiovascular status: acceptable, blood pressure returned to baseline and hemodynamically stable Respiratory status: acceptable and spontaneous ventilation Hydration status: euvolemic Nausea/Vomiting: controlled No notable events documented. Patient can be discharged once all PACU criteria has been met. [facility] 04-24-2025 Note Patient: Anmol Franco Giv en Procedure Summary Date: 04/24/25 Room / Location: [address] Operating Room Anesthesia Start: 729 Anesthesia Stop: 844 Procedure: Sacral wound DEBRIDEMENT SKIN SUBCUTANEOUS TISSUE MUSCLE (Bilateral) Diagnosis: Other acute osteomyelitis, other site (HCC) Pressure injury of coccygeal region, stage 3 (HCC) Surgeons: Kaela Durand MD Responsible Provider: Kathrin Miller MD Anesthesia Type: general ASA Status: 3 Anesthesia Type: general Vitals Value Taken Time BP 90/52 04/24/25 09:00 Temp 36.4 ?C (97.5 ?F) 04/24/25 08:40 Pulse 66 04/24/25 09:09 Resp 16 04/24/25 08:45 SpO2 95 % 04/24/25 09:09 Vitals shown include unfiled device data. Anesthesia Post Evaluation Patient participation: complete - patient participated Level of consciousness: alert and awake Pain management: satisfactory to patient Multimodal analgesia pain management approach Airway patency: patent Two or more strategies used to mitigate risk of obstructive sleep apnea Respiratory status: acceptable Cardiovascular status: acceptable Hydration status: acceptable No notable events documented. MIPS #430 PONV Patient received an inhalational anesthetic (4554F) Patient exhibits three or more risk factors for PONV (4556F) Patient received at leaset 2 prophylactic Rx PONV anti-emtic agents of different classes preop and/or intraop (G9775) MIPS # 424 Perioperative Temperature Management Anesthesia time was 60 minutes or longer (4255F) Anesthesai administered was General (inhalational or TIVA) or Neuraxial block (X0424) At least one body temperature greater than 95.8F/35.5C achieved within the 30 mins immediately prior to or the 15 minutes immediately following anesthesia end time (G9771) MIPS #477 Multimodal Pain Management Not emergent case Patient was administered multimodal pain management (two or more drugs and/or interventions excluding systemic opioids) in the periopeartive period occurring at some time between 6 hours prior to anesthesia start time until discharged from PACU (G2148) MIPS #404 Anesthesiology Smoking Abstinence The patient is a current smoker (G9642) (e.g. cigarette, cigar, pipe, e-cigarette/vaping/marijuana) The patient did not have an elective surgery or procedure requiring anesthesia (YY404) I completed my handoff to the receiving clinician during which we: 1. Identified the patient 2. Identified the responsible provider 3. Reviewed the pertinent medical history 4. Discussed the surgical course 5. Reviewed intra-op anesthesia management and issues during anesthesia 6. Set expectations for post-procedure period 7. Allowed opportunity for questions and acknowledgement of understanding. [facility] 04-24-2025 Nurse Note Patient states nobody here to update [employer] 04-24-2025 Note Family Communication Number Called: [phone] Name of Designated Family Wet Cotton Feeder: Ronald Given Relationship: brother Phone Call Outcome: I spoke with the individual listed above. Family Wet Cotton Feeder Updated on the Following: I updated Ronald on Anmol's surgery. He will rely the message to Ronald's daughter Sumi (phone number provided not functional). [facility] 04-24-2025 Note Airway Date/Time: 04/24/2025 7:37 AM Reason: scheduled Airway not difficult General Information and Staff Patient location during procedure: Procedural Resident/THREAD SPOOLER: Quinten Salgado APRN - THREAD SPOOLER Performed: THREAD SPOOLER Patient Condition Indications for airway management: anesthesia Sedation level: Asleep Final Airway Details Preoxygenated: yes Final airway type: endotracheal airway Successful airway: ETT Cuffed: yes Successful intubation technique: direct laryngoscopy Adjuncts used in placement: intubating stylet Endotracheal tube insertion site: oral Blade: Terell Blade size: #3 ETT size (mm): 8.0 Cormack-Lehane Classification: grade IIb - view of arytenoids or posterior of glottis only Placement verified by: chest auscultation and capnometry Measured from: gums ETT to gums (cm): 23 Number of attempts at approach: 1 [facility] 04-24-2025 Note Patient: Anmol Santiago en Procedure Information Date/Time: 04/24/25729 Procedure: Sacral wound DEBRIDEMENT SKIN SUBCUTANEOUS TISSUE MUSCLE (Bilateral) Location: [address] Operating Room Surgeons: Kaela Durand MD Relevant Problems Cardio (+) Hypertension Neuro/Psych (+) Anxiety Other (+) Other acute osteomyelitis, other site (HCC) (+) Unspecified osteoarthritis, unspecified site Past Medical History: Past Medical History: No date: Abnormal posture No date: Abscess, perineum No date: Anemia No date: BPH (benign prostatic hyperplasia) No date: Chronic back pain No date: Hematuria No date: Hip sprain No date: Hyperlipidemia No date: Hypertension No date: Major depressive disorder, single episode, unspecified No date: MRSA (methicillin resistant staph aureus) culture positive Comment: spine 2021 No date: Muscle wasting and atrophy, not elsewhere classified, left lower leg No date: Muscle weakness (generalized) No date: Neuropathy No date: Obstructive and reflux uropathy, unspecified No date: Osteoarthritis No date: Other abnormalities of gait and mobility No date: Other reduced mobility No date: Paraplegia (HCC) No date: Sciatica No date: Spinal stenosis of lumbar region with neurogenic claudication No date: Type 2 diabetes mellitus without complication ([facility]) ([facility]) No date: Urinary calculus, unspecified No date: UTI (urinary tract infection) Past Surgical History: Past Surgical History: No date: ANKLE SURGERY; Right Comment: He has a titanium plate to the right ankle No date: KNEE SURGERY; Left Comment: ACL No date: KNEE SURGERY; Left Comment: removal of screw 10/24/2020: LAMINECTOMY; Left Comment: LEFT BILATERAL L2-3-4-5 DECOMPRESSION performed by Opal Vigil MD at [facility] OR No date: ORTHOPEDIC SURGERY; Right Comment: removal of hardware ankle 04/14/2024: US PLACE URETAL STENT PERC PRE-EXIST TRACT S&I (HISTORICAL); Bilateral Comment: Dr. Patel/Bashir Social History: TOBACCO: reports that he has been smoking cigarettes. He started smoking about 47 years ago. He has a 21.4 pack-year smoking history. He has never used smokeless tobacco. ETOH: reports no history of alcohol use. Social History Substance and Sexual Activity Drug Use No Family History: Family History[1] Screening: unknown Clinical information reviewed: Allergies Meds Physical Exam Airway Mallampati: II TM distance: >3 FB Neck ROM: full Mouth Open: normal Cardiovascular Dental (+) Upper Partials Pulmonary Abdominal Anesthesia Plan patient is NPO appropriate Any family history or previous problems with anesthesia no ASA 3 general Any family history or previous problems with anesthesia no The patient is not a current smoker. Anesthetic plan and risks discussed with patient. WEST Screening Labs: Lab Results Component Value Date WBC 9.3 04/24/2025 HGB 10.6 (L) 04/24/2025 HCT 32.8 (L) 04/24/2025 MCV 89.1 04/24/2025 PLT 367 04/24/2025 Lab Results Component Value Date NA 136 04/24/2025 K 4.0 04/24/2025 CL 101 04/24/2025 CO2 27 04/24/2025 BUN 7 (L) 04/24/2025 CREATININE 0.59 (L) 04/24/2025 GLUCOSE 113 04/24/2025 CALCIUM 8.4 (L) 04/24/2025 PROT 7.6 04/21/2025 ALKPHOS 116 04/21/2025 AST 13 04/21/2025 ALT 6 04/21/2025 EGFR >90.0 04/24/2025 Pain Score: Scheduled No echocardiogram results found for the past 14 days 04/14/24 ECG 12-LEAD 04/20/2024 3:22 PM (Final) Impression Sinus rhythm Electronically Signed On 04-20-2024 15:22:00 EDT by Jax Wiggins Signed by: Jax Wiggins MD on 04/20/2024 3:22 PM Equipment Requests: Additional Equipment Requests [1] No family history on file. [facility] 04-24-2025 Procedure note OPERATIVE REPORT Date of Service: 04/24/2025 SURGEON: Kaela Durand MD PARTICIPATING SURGEON: Cari Ling MD and Kathrin Alcantara MD (Resident) PREOPERATIVE DIAGNOSIS: 1. Left ischial wound POSTOPERATIVE DIAGNOSIS: 1. Left ischial wound with osteomyelitis PROCEDURE PERFORMED: 1. Excisional debridement 2. Bone biopsy 3. Wet to dry dressing ESTIMATED BLOOD LOSS: 50 cc COMPLICATIONS: None. DRAINS: None FINDINGS: Ischial wound debridement with osteomyelitis HISTORY AND INDICATIONS: Please see the history and physical form, as well as the progress notes for the patient. This 64 y.o. male patient has a left ischial wound that requires debridement. DESCRIPTION OF PROCEDURE: The patient was brought to the operating room. The patient had endotracheal intubation and induction of general anesthesia without any cardiovascular compromise or event. The patient was placed prone on the operating room table. A time-out was performed identifying the correct patient, necessary equipment, and the procedure to be performed. All were in agreement in the room with Anesthesia, the surgeons, and operating room staff, and we proceeded as planned. The patient received a preoperative dose of antibiotics prior to the beginning of the procedure and will be on perioperative dosing of antibiotics. Excisional debridement of left ischial wound was carried out using bovie electrocautery with removal of necrotic and nonviable tissue down to the bone. The bone appears to be infected as well. A bone biopsy was taken and sent for culture and pathology. The wound measured 7cm x 4cm. Hemostasis was achieved with bovie electrocautery. Two pieces of [place] patch were placed in the wound bed. Betadine soak Kerlix was then packed in the wound. Dressings were applied overtop. The sponge, instrument and needle counts were correct at the end of the case. The patient was extubated and transferred to PACU in stable condition. Cosigned by Kaela Durand MD at 04/26/2025 4:55 PM EDT Associated attestation - Kaela Durand MD - 04/26/2025 4:55 PM EDT I attest that I was present and supervised the entire procedure. I agree with the operative details as documented in the resident's note. Excisional debridement of necrotic ischial wound, total wound measurement 7 x 4 cm = 28 cm2 [CPT 96231, 88406] Open biopsy of left ischium [CPT 06516] This note is electronically signed by: Kaela Durand MD 1:56 PM, 04/25/2025. [facility] 04-24-2025 Plan of care note Problem: Pain - Adult Goal: Verbalizes/displays adequate comfort level or baseline comfort level Outcome: Progressing Problem: Safety - Adult Goal: Free from fall injury Outcome: Progressing Problem: Discharge Planning Goal: Discharge to home or other facility with appropriate resources Outcome: Progressing Problem: Chronic Conditions and Co-morbidities Goal: Patient's chronic conditions and co-morbidity symptoms are monitored and maintained or improved Outcome: Progressing [facility] 04-23-2025 Note Hospitalist Progress Note 04/23/2025 Subjective: Admit Date: 04/21/2025 PCP: Tab Dupont Room#: N4-465/N4-465 B BRIEF HOSPITAL COURSE: 64-year-old male presenting with concern for a wound infection and concern for osteomyelitis. He was coming from a nursing facility. The nursing staff indicated that his sacrum was becoming worse and felt it was becoming infected. He is a paraplegic and has been this way for the last 4 years. In the ED, he was afebrile, heart rate 82, respiratory to 16, blood pressure of 113/62, SpO2 of 95% on room air. Regarding his labs, he was mildly hyponatremic with a sodium of 130, otherwise his CMP was unremarkable. He had a mild leukocytosis of 12.5. He had a negative lactic acid. He had a CT of the pelvis which was concerning for osteomyelitis of the left inferior pubic ramus and sacrum and coccyx junction with erosive lucency with bone in contact with air. There is also bladder wall thickening. General surgery saw him, and plan for OR for debridement on April 24. They advised to continue to hold Eliquis and make sure he was n.p.o. prior to surgery. Regarding infection history, he has a history of Proteus UTIs that have been resistant to cefepime, but susceptible to meropenem. He also has had Pseudomonas UTIs which are susceptible to cefepime. He has also had Klebsiella and wound cultures susceptible to cefepime, but resistant to piperacillin tazobactam. Interval History: No overnight issues. Case and plan discussed with patient and bedside nurse. All questions answered. No symptoms today. We had a discussion about his outlook and continued to focus on his daughter and his mother, and getting enjoyment out of life. Adult diet Regular NPO diet with enteral medications 24HR INTAKE/OUTPUT: Intake/Output Summary (Last 24 hours) at 04/23/20252208 Last data filed at 04/23/2025 1650 Gross per 24 hour Intake -- Output 2600 ml Net -2600 ml Past Medical History: Medical History[1] LABS: CBC: Recent Labs 04/21/25225604/23/25 0013 WBC 12.5* 9.4 RBC 4.03* 3.47* HGB 11.7* 9.9* HCT 35.6* 30.7* MCV 88.3 88.5 RDW 14.9 14.9 PLT 372 352 BMP: Recent Labs 04/21/25225604/23/25 0013 NA 130* 133* K 4.3 3.8 CL 99 105 CO2 21* 21* BUN 10 8* CREATININE 0.65* 0.54* GLUCOSE 202* 133* CALCIUM 8.5* 8.1* ANIONGAP 10 7 LIVER PROFILE: Recent Labs 04/21/252256 AST 13 ALT 6 BILITOT 0.5 ALKPHOS 116 PROT 7.6 PT/INR: No results for input(s): "PROTIME", "INR" in the last 72 hours. CARDIAC ENZYMES: No results for input(s): "TROPONINI" in the last 72 hours. Procalcitonin: No results found for: "PROCAL" COVID-19 PCR: No results for input(s): "COVID19" in the last 72 hours. Objective: Vitals: BP 113/70 (BP Location: Right arm, Patient Position: Lying) Pulse 72 Temp 36.4 ?C (97.6 ?F) (Temporal) Resp 21 Ht 6' 3" (1.905 m) Wt 195 lb 6.4 oz (88.6 kg) SpO2 96% BMI 24.42 kg/m? Pulse Ox: SpO2 Av.5 % Min: 93 % Max: 96 % Supplemental O2: Physical Exam Constitutional: General: He is not in acute distress. Cardiovascular: Rate and Rhythm: Normal rate. Pulses: Normal pulses. Heart sounds: No murmur heard. Pulmonary: Effort: Pulmonary effort is normal. No respiratory distress. Breath sounds: No wheezing. Abdominal: General: There is no distension. Palpations: Abdomen is soft. Tenderness: There is no abdominal tenderness. Neurological: Mental Status: He is alert. Medications: Scheduled PRN Scheduled Meds[2] PRN Meds[3] Continuous Continuous Meds[4] Assessment Acute, acute on chronic, unstable/uncontrolled chronic problems/diagnoses: Osteomyelitis of the sacrum, inferior pubic ramus and coccyx junction Presenting from nursing facility and with a history of being a paraplegic. He had a mild leukocytosis on presentation. He had a CT of the pelvis that demonstrated osteomyelitis of the sacrum, pubic ramus and coccyx. He has a history of a Proteus UTI that had been resistant to cefepime, but susceptible to meropenem. He had a Pseudomonas UTI in the past susceptible to cefepime. He also had a Klebsiella and wound culture so perceptible to cefepime but resistant to piperacillin/tazobactam. Plan - Infectious disease consulted - Discussed with ID and they agreed with my assessment to start meropenem -Pharmacy to dose vancomycin - Holding Eliquis - Debridement on April 24 Type 2 diabetes with hyperglycemia Blood glucose elevated Plan - reducing morning lantus by about 50% due to NPO status at midnight -holding lispro because NPO Stable chronic problems affecting care, new non-acute diagnoses: History of paraplegia Depression/neuropathic pain-continue duloxetine Insomnia-continue mirtazapine Plan As a result of the above findings & factors, the following mgmt was pursued: - As above - am labs, replace lytes prn - PT/OT/CM/SW - delirium precautions: increase act (more content not included)... [facility] 04-23-2025 Plan of care note Problem: Pain - Adult Goal: Verbalizes/displays adequate comfort level or baseline comfort level Outcome: Progressing Problem: Safety - Adult Goal: Free from fall injury Outcome: Progressing Problem: Chronic Conditions and Co-morbidities Goal: Patient's chronic conditions and co-morbidity symptoms are monitored and maintained or improved Outcome: Progressing [facility] 04-23-2025 Note PHYSICAL THERAPY [facility] Initial Evaluation Name/MRN: Anmol Reynolds ([id number]) Evaluation Date: 04/23/2025 Date of : 1960 Admission Date: 04/21/2025 9:56 PM Age: 64 y.o. Room[facility]Bed: [facility] Discharge Recommendation: [facility] Facility Equipment Needed: No Assessment IMPRESSION: PT eval completed and the pt is at his functional baseline for transfers, ambulation, balance, and bed mobility. No skilled therapy needs at this time. Recommended return to [facility] level therapy upon disch and PT is also disch Admitting Diagnosis: acute osteomyelitis of sacrum Prognosis: guarded Performance Deficits /Impairments: Increased Pain, Decreased Functional Mobility, Decreased ADL status, Decreased Strength, Decreased Safety Awareness, Decreased Endurance, Decreased Balance, Decreased ROM, and Decreased High Level IADLs Decision Making: Medium Complexity Subjective Pt lying upright in bed. Agreeable to therapy, expressing frustration with current wound situation Pain: c/o sacral sight pain, but did not provide number Past Medical History: Medical History[1] Past Surgical History: Surgical History[2] Admission Diagnosis: Patient Active Problem List Diagnosis Date Noted Hypertension 01/06/2017 Hyperglycemia 01/06/2017 Hip sprain 01/06/2017 Anxiety 01/06/2017 Other acute osteomyelitis, other site ([facility]) 04/22/2025 Positive blood cultures 05/17/2024 Calculus of ureter 05/06/2024 Bladder calculus 05/05/2024 Pressure injury of coccygeal region, stage 3 ([facility]) 04/20/2024 Septic shock ([facility]) 04/14/2024 Lumbar stenosis with neurogenic claudication 10/24/2020 Spinal stenosis of lumbar region with neurogenic claudication 10/24/2020 Nicotine use disorder 10/15/2020 Unspecified osteoarthritis, unspecified site 10/15/2020 Pilonidal cyst without abscess 10/15/2020 Diabetes mellitus without complication ([facility]) 10/15/2020 Abnormal finding on EKG 10/15/2020 Other intervertebral disc displacement, lumbar region 10/15/2020 Lumbar radiculopathy 10/04/2020 Herniated nucleus pulposus, L5-S1, left 07/07/2017 Medical Precautions: No active isolations Proper PPE donned/doffed in accordance with facility standards. Fall Risk: [place] Fall Risk Score: 35 (Medium Risk) Precautions/Restrictions: Right LE Weight Bearing: Weight Bearing As Tolerated Left LE Weight Bearing: Weight Bearing As Tolerated +bed alarm Family/Caregiver Present: none Overall Cognitive Status: WNL Overall Orientation Status: Oriented x4 Social/Functional History Patient admitted from [facility] . Assistive Equipment: wheelchair - manual and everett lift Prior Level of Function Prior Level of ADL Function: Required Assist Prior Level of Mobility: Dependent; Device: None Prior Level of Transfers: Dependent Per pt, had failed back surgery in 2021 that left his a paraplegic. Has been in and out of several SNFs, but has been at current x3 years. Everett lift transfers OOB into manual w/c. Hx of sacral wounds Objective Bed Mobility Supine to sit: Mod Assist Sit to supine: Mod Assist Rolling to right: Mod Assist Rolling to left: Mod Assist Scooting: Mod Assist Balance During Session: Posture: fair Sitting - Static: Min Assist Sitting - Dynamic: Min Assist Noted full trunk control, but no active movement of bilat LE. Still able to feel light touch. Outcome Measures AM-PAC How much HELP from another person do you currently need Turning from your back to your side while in a flat bed without using bedrails?: A Lot Moving from lying on your back to sitting on the side of a flat bed without using bedrails?: A Lot Moving to and from a bed to a chair (including a wheelchair)?: Total Standing up from a chair using your arms (wheelchair or bedside chair)?: Total Walking in a hospital room?: Total Stair climbing assessed?: No AM-PAC Inpatient Mobility Raw Score (No Stairs) : 7 JH-HLM JH-HLM Score: Sat at edge of bed Plan No skilled acute PT indicated at this time. Please reconsult should changes occur. Safety/Education Safety Safety Devices in place: All fall risk precautions in place, call light within reach, left in bed, and no alarms engaged upon entry Restraints: No Education Education Given To: patient Education Provided: PT Role, PT Goals, and Plan of Care Education Method: Verbal Barriers to Learning: None Goals Patient Stated Goal: get this wound taken care of Therapy Time Individual Co-Treatment Co-Evaluation Time In 0812 Time Out 0822 Minutes 10 Abigail Collins PT Patient's Physical Therapy Plan of Care supervision is transferred to a [facility] Therapy Services Physical Therapist. Goals and/or treatment plan was established in collaboration with patient/family/other representatives. [1] Past Medical History: Diagnosis Date Abnormal posture Abscess, perineum Anemia BPH (benign prostatic hyperplasia) Chronic back pain Hem (more content not included)... [facility] 04-23-2025 Note Pharmacy to Dose Van comycin - Progress Note Lab Results Component Value Date CREATININE 0.54 (L) 04/23/2025 BUN 8 (L) 04/23/2025 WBC 9.4 04/23/2025 VANCORANDOM 12.3 (L) 04/16/2024 VANCOTROUGH 12.4 04/22/2025 Doses, serum creatinine, and vancomycin levels interfaced automatically to [employer] and data has been analyzed and interpreted. Infectious Diagnosis: SSTI Est CrCl: > 100 mL/min (Cockcroft-Gault) Assessment: Current regimen vancomycin 1500 mg every 12 hours (16.9 mg/kg) Predicted AUC = 467 mg/L*hr (goal 400-600 mg/L*hr) PAUC = 86% (probability that AUC is >400 mg/L*hr) Pconc = <5% (probability that Ctrough is above 20 mcg/mL (toxicity)) Plan: Is the current dose therapeutic? [x] Yes - obtain next level on 04/24 unless predicted AUC is sub-/supra-therapeutic or change in serum creatinine. Trend serum creatinine. Trend AUC using Bayesian Modeling. Orders placed. DATE: 04/23/25 TIME: 8:13 AM Radha Deal [facility] Clinical Pharmacist Available via Secure Chat [facility] 04-23-2025 Plan of care note Problem: Pain - Adult Goal: Verbalizes/displays adequate comfort level or baseline comfort level Outcome: Progressing Problem: Safety - Adult Goal: Free from fall injury Outcome: Progressing Problem: Discharge Planning Goal: Discharge to home or other facility with appropriate resources Outcome: Progressing Problem: Chronic Conditions and Co-morbidities Goal: Patient's chronic conditions and co-morbidity symptoms are monitored and maintained or improved Outcome: Progressing [facility] 04-22-2025 Consult note Associated Order (s): IP CONSULT TO INFECTIOUS DISEASES Images from the original note were not included. [facility] - Infectious Diseases Attending Consult Note Reason for Consult: 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 History of Present Illness: 64 M with h/o MRSA lumbar epidural abscess from 2021, s/p decompression and fusion, but left paraplegic with neurogenic bladder. Recent hospitlaizaitons for PNA as well as ESBL Proteus UTI/ sepsis recently at [facility]. He had a sacral decubitus ulcer for years, was already improving but worsened since most recent prolonged hospitalization once more in February 2025. Buttock ulcer developed that time as well. Patient stabilized, completed IV antibiotics, and was doing well except at ECF increased concern for worsening wound infection, Patient was not febrile and did not exhibit any other constitutional symptoms. ON intake, imaging done now concerning for acute Pubic rami and sacral OM communicating with decubitus ulcer. Started on broad spectrum antibiotics by IM team including Meropenem and ID consulted. He is not in pain at the moment. Past Medical History: Medical History[1] Past Surgical History: Surgical History[2] Current Medications: Current Medications[3] Allergies: Allergies[4] Social History: Social History Socioeconomic History Marital status: Spouse name: Not on file Number of children: Not on file Years of education: Not on file Highest education level: Not on file Occupational History Not on file Tobacco Use Smoking status: Every Day Current packs/day: 0.25 Average packs/day: 0.5 packs/day for 44.5 years (21.4 ttl pk-yrs) Types: Cigarettes Start date: 1977 Smokeless tobacco: Never Vaping Use Vaping status: Every Day Substances: Nicotine, Flavoring Substance and Sexual Activity Alcohol use: No Drug use: No Sexual activity: Not on file Other Topics Concern Not on file Social History Narrative Not on file Social Drivers of Health Financial Resource Strain: Low Risk (04/24/2023) Received from [facility] Overall Financial Resource Strain (CARDIA) Difficulty of Paying Living Expenses: Not hard at all Food Insecurity: No Food Insecurity (04/22/2025) Hunger Vital Sign Worried About Running Out of Food in the Last Year: Never true Ran Out of Food in the Last Year: Never true Transportation Needs: Unmet Transportation Needs (04/22/2025) PRAPARE - Transportation Lack of Transportation (Medical): Yes Lack of Transportation (Non-Medical): Yes Physical Activity: Not on file Stress: Not on file Social Connections: Not on file Intimate Partner Violence: Not At Risk (04/22/2025) Humiliation, Afraid, Rape, and Kick questionnaire Fear of Current or Ex-Partner: No Emotionally Abused: No Physically Abused: No Sexually Abused: No Housing Stability: Low Risk (04/22/2025) Housing Stability Vital Sign Unable to Pay for Housing in the Last Year: No Number of Times Moved in the Last Year: 0 Homeless in the Last Year: No Family History: Family History[5] Review of Systems: Review of Systems Constitutional: Positive for chills. Negative for fatigue and fever. Respiratory: Negative. Genitourinary: Positive for difficulty urinating (santana in place, stents removed last month by ). Musculoskeletal: Positive for back pain. Skin: Positive for wound (per HPI). Neurological: Positive for weakness (paraplegia since 2021). Psychiatric/Behavioral: Negative. Vitals: Patient Vitals for the past 24 hrs: BP Temp Temp src Pulse Resp SpO2 Height Weight 04/22/25 0824 98/58 36.9 C (98.5 F) Temporal 71 -- 94 % -- -- 04/22/25 0300 -- -- -- -- -- -- 1.905 m (6' 3") 88.6 kg (195 lb 6.4 oz) 04/22/25 0230 108/65 36.4 C (97.5 F) Temporal 73 16 97 % -- -- 04/21/25 2228 113/62 36.7 C (98.1 F) Oral 82 16 95 % 1.905 m (6' 3") 90.7 kg (200 lb) Physical Exam: Physical Exam Vitals reviewed. Constitutional: General: He is not in acute distress. Appearance: Normal appearance. He is ill-appearing. He is not toxic-appearing. Eyes: General: No scleral icterus. Extraocular Movements: Extraocular movements intact. Cardiovascular: Rate and Rhythm: Normal rate and regular rhythm. Pulses: Normal pulses. Heart sounds: Normal heart sounds. No murmur heard. Pulmonary: Effort: Pulmonary effort is normal. No respiratory distress. Breath sounds: Normal breath sounds. Abdominal: General: There is no distension. Palpations: Abdomen is soft. Tenderness: There is no abdominal tenderness. Genitourinary: Penis: Normal. Testes: Normal. Comments: Santana with clear UOP Musculoskeletal: General: Signs of injury (decub ulcer not exmined directly, photos reviewed on chart instead) present. Cervical back: Neck supple. Skin: General: Skin is warm. Coloration: Skin is not jaundiced. Findings: No erythema or rash. Neurological: Mental Status: He is alert. Motor: Weakness (paraplegic, atrophy to legs) present. Psychiatric: Mood and Affect: Mood normal. Thought Content: Thought content normal. Labs: Recent Labs 04/21/252256 NA 130* K 4.3 CL 99 CO2 21* BUN 10 CREATININE 0.65* GLUCOSE 202* CALCIUM 8.5* PROT 7.6 BILITOT 0.5 ALKPHOS 116 AST 13 ALT 6 Recent Labs 07/18/25 2257 WBC 12.5* HGB 11.7* HCT 35.6* PLT 372 LYMPHOPCT 18.1 MONOPCT 7.8 BASOPCT 0.6 NEUTROABS 8.8* Micro: No results for input(s): "COVID19" in the last 72 hours. 04/21 wound cx: pending( gram stain polymicrobial) BC: pending Previous cultures- ESBL Proteus form urine, PsA from resp cultures. Lines: PIV Radiography/Echo/Other: Reviewed CT Pelvis mpression: 1. Findings are highly suspicious for osteomyelitis of the left inferior pubic ramus and sacrum/coccyx junction with erosive lucency as well as bone in contact with air. Overlying locules of air and edema and wound present in the soft tissue. 2. Bladder wall thickening, consider cystitis. 3. Additional findings, as above. Antimicrobials,Start/End Dates: Vancomycin Cefepime to Meropenem Impression: 64 M admitted from [facility] with: Worsening decubitus ulcer , concerning for wound infection, with imaging c/w acute OM- Surgery already consulted, with plans for I+D. Agree with broad spectrum coverage, including Meropenem given MDRO pathogens isolated recently. Clinically not septic appearing NGB , chronic santana requiring H/o mRSA Epidural abscess, despite surery form 2021, now with paraplegia Tobacco use Not septic-appearing at this time, HD stable. Plan: Continue antibiotics above, will follow. Please obtain deep tissue bone culture with I+D, which would reflect more what the active infection is, rather than surface wound cultures. Total time of 70 minutes on this day of encounter spent on, but not limited to review of tests, medical records , complex history , review of external medical records, paper and electronic, ordering medications, tests, and procedures, and communication with other health care professions. [1] Past Medical History: Diagnosis Date Abnormal posture Abscess, perineum Anemia BPH (benign prostatic hyperplasia) Chronic back pain Hematuria Hip sprain Hyperlipidemia Hypertension Major depressive disorder, single episode, unspecified MRSA (methicillin resistant staph aureus) culture positive spine 2021 Muscle wasting and atrophy, not elsewhere classified, left lower leg Muscle weakness (generalized) Neuropathy Obstructive and reflux uropathy, unspecified Osteoarthritis Other abnormalities of gait and mobility Other reduced mobility Paraplegia (HCC) Sciatica Spinal stenosis of lumbar region with neurogenic claudication Type 2 diabetes mellitus without complication (CMS/HCC) (HCC) Urinary calculus, unspecified UTI (urinary tract infection) [2] Past Surgical History: Procedure Laterality Date ANKLE SURGERY Right He has a titanium plate to the right ankle KNEE SURGERY Left ACL KNEE SURGERY Left removal of screw LAMINECTOMY Left 10/24/2020 LEFT BILATERAL L2-3-4-5 DECOMPRESSION performed by Opal Vigil MD at [facility] OR ORTHOPEDIC SURGERY Right removal of hardware ankle US PLACE URETAL STENT PERC PRE-EXIST TRACT S&I (HISTORICAL) Bilateral 04/14/2024 Dr. Patel/Bashir [3] Current Facility-Administered Medications Medication Dose Route Frequency Provider Last Rate Last Admin acetaminophen (Tylenol) tablet 650 mg 650 mg Oral q6h PRN Alberto G Keagan, SPEECH LANGUAGE PATHOLOGIST Or acetaminophen (Tylenol) suppository 650 mg 650 mg Rectal q6h PRN Alberto G Pickens, SPEECH LANGUAGE PATHOLOGIST [Held by provider] apixaban (Eliquis) tablet 5 mg 5 mg Oral BID Alberto G Keagan, SPEECH LANGUAGE PATHOLOGIST bisacodyl (Dulcolax) EC tablet 5 mg 5 mg Oral Daily PRN Alberto G Pickens, SPEECH LANGUAGE PATHOLOGIST bisacodyl (Dulcolax) suppository 10 mg 10 mg Rectal Daily PRN Alberto G Keagan, SPEECH LANGUAGE PATHOLOGIST calcium carbonate (Tums) chewable tablet 1,000 mg 1,000 mg Oral q8h PRN Alberto G Keagan, SPEECH LANGUAGE PATHOLOGIST [START ON 04/23/2025] chlorhexidine (Hibiclens) 4 % solution Topical Daily Alberto G Keagan, SPEECH LANGUAGE PATHOLOGIST cyclobenzaprine (Flexeril) tablet 10 mg 10 mg Oral TID PRN Alberto G Keagan, SPEECH LANGUAGE PATHOLOGIST 10 mg at 04/22/25 0624 dextrose 5 % infusion 100 mL/hr IntraVENous PRN Alberto G Keagan, SPEECH LANGUAGE PATHOLOGIST dextrose 50 % solution 12.5 g 12.5 g IntraVENous PRN Alberto G Keagan, SPEECH LANGUAGE PATHOLOGIST DULoxetine (Cymbalta) DR capsule 30 mg 30 mg Oral Daily Alberto G Pickens, SPEECH LANGUAGE PATHOLOGIST 30 mg at 04/22/25 0923 ferrous sulfate tablet 325 mg 325 mg Oral Daily with breakfast Alberto G Keagan, SPEECH LANGUAGE PATHOLOGIST 325 mg at 04/22/25 0921 glucagon (human recombinant) injection 1 mg 1 mg IntraMUSCular PRN Alberto G Pickens, SPEECH LANGUAGE PATHOLOGIST glucose oral gel 15 g 15 g Oral PRN Ross G Keagan, SPEECH LANGUAGE PATHOLOGIST insulin glargine (Lantus) injection 45 Units 45 Units SubCUTAneous q AM Alberto Boogie, SPEECH LANGUAGE PATHOLOGIST 45 Units at 04/22/25920 Insulin Lispro (Humalog) injection 0-18 Units 0-18 Units SubCUTAneous TID WC Alberto Boogie, SPEECH LANGUAGE PATHOLOGIST 9 Units at 04/22/25920 And Insulin Lispro (Humalog) injection 0-18 Units 0-18 Units SubCUTAneous Nightly Alberto Boogie, SPEECH LANGUAGE PATHOLOGIST [START ON 04/24/2025] lactated Ringer's infusion 100 mL/hr IntraVENous Continuous Cari Ling MD linaGLIPtin (Tradjenta) tablet 5 mg 5 mg Oral Daily Alberto Boogie, SPEECH LANGUAGE PATHOLOGIST 5 mg at 04/22/25945 meropenem (Merrem) 2,000 mg in sodium chloride 0.9 % 100 mL IVPB 2,000 mg IntraVENous q8h Kerwin Ricci DO midodrine (Proamatine) tablet 10 mg 10 mg Oral TID Alberto Boogie, SPEECH LANGUAGE PATHOLOGIST 10 mg at 04/22/25920 mirtazapine (Remeron) tablet 7.5 mg 7.5 mg Oral Nightly Alberto Boogie, SPEECH LANGUAGE PATHOLOGIST naloxone (Narcan) nasal spray 4 mg 4 mg Nasal PRN Alberto Boogie, SPEECH LANGUAGE PATHOLOGIST ondansetron ODT (Zofran-ODT) disintegrating tablet 4 mg 4 mg Oral q8h PRN Alberto Boogie, SPEECH LANGUAGE PATHOLOGIST Or ondansetron (Zofran) injection 4 mg 4 mg IntraVENous q6h PRN Alberto Boogie, SPEECH LANGUAGE PATHOLOGIST oxyCODONE (Roxicodone) immediate release tablet 15 mg 15 mg Oral 4x daily Alberto Boogie, SPEECH LANGUAGE PATHOLOGIST 15 mg at 04/22/25920 polyethylene glycol (PEG) 3350 (Miralax) packet 17 g 17 g Oral BID Alberto Miltons, SPEECH LANGUAGE PATHOLOGIST 17 g at 04/22/25920 polyethylene glycol (PEG) 3350 (Miralax) packet 17 g 17 g Oral Daily PRN Alberto Miltons, SPEECH LANGUAGE PATHOLOGIST pregabalin (Lyrica) capsule 200 mg 200 mg Oral TID Alberto Boogie, SPEECH LANGUAGE PATHOLOGIST 200 mg at 04/22/25919 senna-docusate sodium (Senokot-S) 8.6-50 MG tablet 2 tablet 2 tablet Oral BID Alberto Sanchez Pickens, SPEECH LANGUAGE PATHOLOGIST 2 tablet at 04/22/25 0921 sodium chloride 0.9% (NS) flush 10 mL 10 mL IntraCATHeter q12h Alberto G Pickens, SPEECH LANGUAGE PATHOLOGIST 10 mL at 04/22/25 0634 sodium chloride 0.9% (NS) flush 10 mL 10 mL IntraCATHeter PRN Alberto Sanchez Keagan, SPEECH LANGUAGE PATHOLOGIST tamsulosin (Flomax) 24 hr capsule 0.4 mg 0.4 mg Oral Daily Alberto Sanchez Pickens, SPEECH LANGUAGE PATHOLOGIST 0.4 mg at 04/22/25 0922 vancomycin IVPB 1500 mg in 250 mL NS (premix) 1,500 mg IntraVENous q12h Alberto G Keagan, SPEECH LANGUAGE PATHOLOGIST [4] No Known Allergies [5] No family history on file. [facility] 04-22-2025 Consult note Associated Order (s): IP CONSULT TO INFECTIOUS DISEASES Images from the original note were not included. [facility] - Infectious Diseases Attending Consult Note Reason for Consult: 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 History of Present Illness: 64 M with h/o MRSA lumbar epidural abscess from 2021, s/p decompression and fusion, but left paraplegic with neurogenic bladder. Recent hospitlaizaitons for PNA as well as ESBL Proteus UTI/ sepsis recently at [facility]. He had a sacral decubitus ulcer for years, was already improving but worsened since most recent prolonged hospitalization once more in February 2025. Buttock ulcer developed that time as well. Patient stabilized, completed IV antibiotics, and was doing well except at [facility] increased concern for worsening wound infection, Patient was not febrile and did not exhibit any other constitutional symptoms. ON intake, imaging done now concerning for acute Pubic rami and sacral OM communicating with decubitus ulcer. Started on broad spectrum antibiotics by IM team including Meropenem and ID consulted. He is not in pain at the moment. Past Medical History: Medical History[1] Past Surgical History: Surgical History[2] Current Medications: Current Medications[3] Allergies: Allergies[4] Social History: Social History Socioeconomic History Marital status: Spouse name: Not on file Number of children: Not on file Years of education: Not on file Highest education level: Not on file Occupational History Not on file Tobacco Use Smoking status: Every Day Current packs/day: 0.25 Average packs/day: 0.5 packs/day for 44.5 years (21.4 ttl pk-yrs) Types: Cigarettes Start date: 1977 Smokeless tobacco: Never Vaping Use Vaping status: Every Day Substances: Nicotine, Flavoring Substance and Sexual Activity Alcohol use: No Drug use: No Sexual activity: Not on file Other Topics Concern Not on file Social History Narrative Not on file Social Drivers of Health Financial Resource Strain: Low Risk (04/24/2023) Received from [facility] Overall Financial Resource Strain (CARDIA) Difficulty of Paying Living Expenses: Not hard at all Food Insecurity: No Food Insecurity (04/22/2025) Hunger Vital Sign Worried About Running Out of Food in the Last Year: Never true Ran Out of Food in the Last Year: Never true Transportation Needs: Unmet Transportation Needs (04/22/2025) PRAPARE - Transportation Lack of Transportation (Medical): Yes Lack of Transportation (Non-Medical): Yes Physical Activity: Not on file Stress: Not on file Social Connections: Not on file Intimate Partner Violence: Not At Risk (04/22/2025) Humiliation, Afraid, Rape, and Kick questionnaire Fear of Current or Ex-Partner: No Emotionally Abused: No Physically Abused: No Sexually Abused: No Housing Stability: Low Risk (04/22/2025) Housing Stability Vital Sign Unable to Pay for Housing in the Last Year: No Number of Times Moved in the Last Year: 0 Homeless in the Last Year: No Family History: Family History[5] Review of Systems: Review of Systems Constitutional: Positive for chills. Negative for fatigue and fever. Respiratory: Negative. Genitourinary: Positive for difficulty urinating (santana in place, stents removed last month by ). Musculoskeletal: Positive for back pain. Skin: Positive for wound (per HPI). Neurological: Positive for weakness (paraplegia since 2021). Psychiatric/Behavioral: Negative. Vitals: Patient Vitals for the past 24 hrs: BP Temp Temp src Pulse Resp SpO2 Height Weight 04/22/25 0824 98/58 36.9 C (98.5 F) Temporal 71 -- 94 % -- -- 04/22/25 0300 -- -- -- -- -- -- 1.905 m (6' 3") 88.6 kg (195 lb 6.4 oz) 04/22/25 0230 108/65 36.4 C (97.5 F) Temporal 73 16 97 % -- -- 04/21/25 2228 113/62 36.7 C (98.1 F) Oral 82 16 95 % 1.905 m (6' 3") 90.7 kg (200 lb) Physical Exam: Physical Exam Vitals reviewed. Constitutional: General: He is not in acute distress. Appearance: Normal appearance. He is ill-appearing. He is not toxic-appearing. Eyes: General: No scleral icterus. Extraocular Movements: Extraocular movements intact. Cardiovascular: Rate and Rhythm: Normal rate and regular rhythm. Pulses: Normal pulses. Heart sounds: Normal heart sounds. No murmur heard. Pulmonary: Effort: Pulmonary effort is normal. No respiratory distress. Breath sounds: Normal breath sounds. Abdominal: General: There is no distension. Palpations: Abdomen is soft. Tenderness: There is no abdominal tenderness. Genitourinary: Penis: Normal. Testes: Normal. Comments: Santana with clear UOP Musculoskeletal: General: Signs of injury (decub ulcer not exmined directly, photos reviewed on chart instead) present. Cervical back: Neck supple. Skin: General: Skin is warm. Coloration: Skin is not jaundiced. Findings: No erythema or rash. Neurological: Mental Status: He is alert. Motor: Weakness (paraplegic, atrophy to legs) present. Psychiatric: Mood and Affect: Mood normal. Thought Content: Thought content normal. Labs: Recent Labs 04/21/25 2257 NA 130* K 4.3 CL 99 CO2 21* BUN 10 CREATININE 0.65* GLUCOSE 202* CALCIUM 8.5* PROT 7.6 BILITOT 0.5 ALKPHOS 116 AST 13 ALT 6 Recent Labs 04/21/25 2257 WBC 12.5* HGB 11.7* HCT 35.6* PLT 372 LYMPHOPCT 18.1 MONOPCT 7.8 BASOPCT 0.6 NEUTROABS 8.8* Micro: No results for input(s): "COVID19" in the last 72 hours. 04/21 wound cx: pending( gram stain polymicrobial) BC: pending Previous cultures- ESBL Proteus form urine, PsA from resp cultures. Lines: PIV Radiography/Echo/Other: Reviewed CT Pelvis mpression: 1. Findings are highly suspicious for osteomyelitis of the left inferior pubic ramus and sacrum/coccyx junction with erosive lucency as well as bone in contact with air. Overlying locules of air and edema and wound present in the soft tissue. 2. Bladder wall thickening, consider cystitis. 3. Additional findings, as above. Antimicrobials,Start/End Dates: Vancomycin Cefepime to Meropenem Impression: 64 M admitted from [facility] with: Worsening decubitus ulcer , concerning for wound infection, with imaging c/w acute OM- Surgery already consulted, with plans for I+D. Agree with broad spectrum coverage, including Meropenem given MDRO pathogens isolated recently. Clinically not septic appearing NGB , chronic santana requiring H/o mRSA Epidural abscess, despite surery form 2021, now with paraplegia Tobacco use Not septic-appearing at this time, HD stable. Plan: Continue antibiotics above, will follow. Please obtain deep tissue bone culture with I+D, which would reflect more what the active infection is, rather than surface wound cultures. Total time of 70 minutes on this day of encounter spent on, but not limited to review of tests, medical records , complex history , review of external medical records, paper and electronic, ordering medications, tests, and procedures, and communication with other health care professions. [1] Past Medical History: Diagnosis Date Abnormal posture Abscess, perineum Anemia BPH (benign prostatic hyperplasia) Chronic back pain Hematuria Hip sprain Hyperlipidemia Hypertension Major depressive disorder, single episode, unspecified MRSA (methicillin resistant staph aureus) culture positive spine 2021 Muscle wasting and atrophy, not elsewhere classified, left lower leg Muscle weakness (generalized) Neuropathy Obstructive and reflux uropathy, unspecified Osteoarthritis Other abnormalities of gait and mobility Other reduced mobility Paraplegia (HCC) Sciatica Spinal stenosis of lumbar region with neurogenic claudication Type 2 diabetes mellitus without complication (CMS/HCC) (HCC) Urinary calculus, unspecified UTI (urinary tract infection) [2] Past Surgical History: Procedure Laterality Date ANKLE SURGERY Right He has a titanium plate to the right ankle KNEE SURGERY Left ACL KNEE SURGERY Left removal of screw LAMINECTOMY Left 10/24/2020 LEFT BILATERAL L2-3-4-5 DECOMPRESSION performed by Opal Vigil MD at [facility] OR ORTHOPEDIC SURGERY Right removal of hardware ankle US PLACE URETAL STENT PERC PRE-EXIST TRACT S&I (HISTORICAL) Bilateral 04/14/2024 Dr. Patel/Bashir [3] Current Facility-Administered Medications Medication Dose Route Frequency Provider Last Rate Last Admin acetaminophen (Tylenol) tablet 650 mg 650 mg Oral q6h PRN Alberto Sanchez Pickens, SPEECH LANGUAGE PATHOLOGIST Or acetaminophen (Tylenol) suppository 650 mg 650 mg Rectal q6h PRN Alberto Sanchez Pickens, SPEECH LANGUAGE PATHOLOGIST [Held by provider] apixaban (Eliquis) tablet 5 mg 5 mg Oral BID Alberto Sanchez Pickens, SPEECH LANGUAGE PATHOLOGIST bisacodyl (Dulcolax) EC tablet 5 mg 5 mg Oral Daily PRN Alberto Sanchez Keagan, SPEECH LANGUAGE PATHOLOGIST bisacodyl (Dulcolax) suppository 10 mg 10 mg Rectal Daily PRN Alberto Miltons, SPEECH LANGUAGE PATHOLOGIST calcium carbonate (Tums) chewable tablet 1,000 mg 1,000 mg Oral q8h PRN Alberto Miltons, SPEECH LANGUAGE PATHOLOGIST [START ON 04/23/2025] chlorhexidine (Hibiclens) 4 % solution Topical Daily Alberto Miltons, SPEECH LANGUAGE PATHOLOGIST cyclobenzaprine (Flexeril) tablet 10 mg 10 mg Oral TID PRN Alberto Miltons, SPEECH LANGUAGE PATHOLOGIST 10 mg at 04/22/25 0624 dextrose 5 % infusion 100 mL/hr IntraVENous PRN Alberto Miltons, SPEECH LANGUAGE PATHOLOGIST dextrose 50 % solution 12.5 g 12.5 g IntraVENous PRN Alberto Miltons, SPEECH LANGUAGE PATHOLOGIST DULoxetine (Cymbalta) DR capsule 30 mg 30 mg Oral Daily Alberto Miltons, SPEECH LANGUAGE PATHOLOGIST 30 mg at 04/22/25 0923 ferrous sulfate tablet 325 mg 325 mg Oral Daily with breakfast Alberto Miltons, SPEECH LANGUAGE PATHOLOGIST 325 mg at 04/22/25 0921 glucagon (human recombinant) injection 1 mg 1 mg IntraMUSCular PRN Alberto Miltons, SPEECH LANGUAGE PATHOLOGIST glucose oral gel 15 g 15 g Oral PRN Alberto Miltons, SPEECH LANGUAGE PATHOLOGIST insulin glargine (Lantus) injection 45 Units 45 Units SubCUTAneous q AM Alberto Miltons, SPEECH LANGUAGE PATHOLOGIST 45 Units at 04/22/25 0921 Insulin Lispro (Humalog) injection 0-18 Units 0-18 Units SubCUTAneous TID WC Ross G Keagan, SPEECH LANGUAGE PATHOLOGIST 9 Units at 04/22/25 0921 And Insulin Lispro (Humalog) injection 0-18 Units 0-18 Units SubCUTAneous Nightly Alberto Sanchez Keagan, SPEECH LANGUAGE PATHOLOGIST [START ON 04/24/2025] lactated Ringer's infusion 100 mL/hr IntraVENous Continuous Cari Ling MD linaGLIPtin (Tradjenta) tablet 5 mg 5 mg Oral Daily Ross G Keagan, SPEECH LANGUAGE PATHOLOGIST 5 mg at 04/22/25 0946 meropenem (Merrem) 2,000 mg in sodium chloride 0.9 % 100 mL IVPB 2,000 mg IntraVENous q8h Kerwin Ricci DO midodrine (Proamatine) tablet 10 mg 10 mg Oral TID Alberto G Keagan, SPEECH LANGUAGE PATHOLOGIST 10 mg at 04/22/25920 mirtazapine (Remeron) tablet 7.5 mg 7.5 mg Oral Nightly Alberto G Pickens, SPEECH LANGUAGE PATHOLOGIST naloxone (Narcan) nasal spray 4 mg 4 mg Nasal PRN Alberto G Keagan, SPEECH LANGUAGE PATHOLOGIST ondansetron ODT (Zofran-ODT) disintegrating tablet 4 mg 4 mg Oral q8h PRN Ross G Keagan, SPEECH LANGUAGE PATHOLOGIST Or ondansetron (Zofran) injection 4 mg 4 mg IntraVENous q6h PRN Alberto G Pickens, SPEECH LANGUAGE PATHOLOGIST oxyCODONE (Roxicodone) immediate release tablet 15 mg 15 mg Oral 4x daily Alberto G Pickens, SPEECH LANGUAGE PATHOLOGIST 15 mg at 04/22/25 0921 polyethylene glycol (PEG) 3350 (Miralax) packet 17 g 17 g Oral BID Alberto G Pickens, SPEECH LANGUAGE PATHOLOGIST 17 g at 04/22/2521 polyethylene glycol (PEG) 3350 (Miralax) packet 17 g 17 g Oral Daily PRN Alberto G Pickens, SPEECH LANGUAGE PATHOLOGIST pregabalin (Lyrica) capsule 200 mg 200 mg Oral TID Ross G Keagan, SPEECH LANGUAGE PATHOLOGIST 200 mg at 04/22/25 0920 senna-docusate sodium (Senokot-S) 8.6-50 MG tablet 2 tablet 2 tablet Oral BID Ross G Keagan, SPEECH LANGUAGE PATHOLOGIST 2 tablet at 04/22/25 0921 sodium chloride 0.9% (NS) flush 10 mL 10 mL IntraCATHeter q12h Ross G Pickens, SPEECH LANGUAGE PATHOLOGIST 10 mL at 04/22/25 0634 sodium chloride 0.9% (NS) flush 10 mL 10 mL IntraCATHeter PRN Alberto Sanchez Keagan, SPEECH LANGUAGE PATHOLOGIST tamsulosin (Flomax) 24 hr capsule 0.4 mg 0.4 mg Oral Daily Alberto Miltons, SPEECH LANGUAGE PATHOLOGIST 0.4 mg at 04/22/25 0922 vancomycin IVPB 1500 mg in 250 mL NS (premix) 1,500 mg IntraVENous q12h Alberto Sanchez Pickens, SPEECH LANGUAGE PATHOLOGIST [4] No Known Allergies [5] No family history on file. Associated Order(s): IP CONSULT TO GENERAL SURGERY Images from the original note were not included. Department of General Surgery Surgical Service - ACS Resident Consult Note 04/22/2025 CHIEF COMPLAINT: Chief Complaint Patient presents with Wound Infection Per EMS pt was sent here from the [place] for wound infections. Pt has two wound on his sacrum - one at the top of sacrum and one at the bottom of the buttocks. Denies any fever/ CP/FEVER/ SOB. Pt is paralysis. Reason for Consult: "osteomyleitis of left inferior pubic ramus with sacral wounds" HISTORY OF PRESENT ILLNESS: Anmol Reynolds is a 64 y.o. male with significant past medical history of paraplegia s/p [facility], HLD, HTN, MDD, OA, a-fib on eliquis, chronic sacral wounds who presents from his care home after he states the nurses have become more concerned about his sacral wound. Surgery was consulted for evaluation of these sacral wounds and concern for osteomyelitis of the left inferior pubic ramus. Patient states that he is feeling well overall. He reports he was brought in due to concerns for his sacral wound. Reports he is unsure if there has been increased drainage or redness but does endorse having infections requiring debridement prior to this. He is unsure why he takes Eliquis. On evaluation patient was HDS, afebrile. Labs reviewed significant for: WBC 12.5, HGB 11.7. CMP largely unremarkable. Wound cultures: many gram negative bacilli, gram + cocci in pairs and chains and clusters, gram positive bacilli. Imaging demonstrated: CT Pelvis- erosive lucency and bone in contact with air at left inferior pubic ramus and sacrum/coccyx junction. Overlying air and edema present in soft tissue along the wound. Medical History[1] Surgical History[2] Medications Prior to Admission: Medications Ordered Prior to Encounter[3] Allergies: Patient has no known allergies. Social History[4] Family History[5] REVIEW OF SYSTEMS: 11 point review of systems obtained, and negative unless otherwise mentioned in HPI PHYSICAL EXAM: Vitals: 04/22/25 0230 BP: 108/65 Pulse: 73 Resp: 16 Temp: 36.4 C (97.5 F) SpO2: 97% No intake/output data recorded. CONSTITUTIONAL: awake, alert, cooperative, no apparent distress NECK: Supple, symmetrical, trachea midline, no adenopathy LUNGS: No increased work of breathing, good air exchange CARDIOVASCULAR: Regular rate and rhythm ABDOMEN: Soft, non-distended, non-tender, no rebound, no guarding, no masses palpated, CHEST: no masses palpated, no axillary or supraclavicular adenopathy GENITAL/URINARY: Not examined MUSCULOSKELETAL: There is no redness, warmth, or swelling of the joints. Full range of motion noted. NEUROLOGIC: Awake, alert, oriented to name, place and time. SKIN: normal skin color, texture, no redness, warmth, or swelling DATA: CBC: Lab Results Component Value Date WBC 12.5 (H) 04/21/2025 RBC 4.03 (L) 04/21/2025 HGB 11.7 (L) 04/21/2025 HCT 35.6 (L) 04/21/2025 MCV 88.3 04/21/2025 MCH 29.0 04/21/2025 MCHC 32.9 04/21/2025 RDW 14.9 04/21/2025 PLT 372 04/21/2025 MPV 9.8 04/21/2025 BMP: Lab Results Component Value Date NA 130 (L) 04/21/2025 K 4.3 04/21/2025 CL 99 04/21/2025 CO2 21 (L) 04/21/2025 BUN 10 04/21/2025 CREATININE 0.65 (L) 04/21/2025 CALCIUM 8.5 (L) 04/21/2025 GLUCOSE 202 (H) 04/21/2025 Hepatic Function Panel: Lab Results Component Value Date ALKPHOS 116 04/21/2025 ALT 6 04/21/2025 AST 13 04/21/2025 PROT 7.6 04/21/2025 BILITOT 0.5 04/21/2025 PT/INR: No results found for: "PROTIME", "INR" Troponin: No results found for: TROPONINI LIPASE: No results found for: LIPASE IMAGING: CT pelvis w IV contrast Narrative: [facility] 1960 [id number] Exam Date/Time: 04/22/2025 00:01 Procedure: CT PELVIS W IV CONTRAST Ordering Provider: CAMPOS JEFFREY Reason For Exam: sacral, right buttocks wound Gender: Male Age: 64 years Exam: CT PELVIS W IV CONTRAST Indication: Sacral and buttocks wound. The patient is paralyzed. Scan Parameters: Multiple axial CT images of the pelvis were obtained. Coronal and sagittal reconstructions were reviewed as well. ALARA protocol. Dose reduction was employed with automated exposure control. Contrast: 75 mL of Isovue-370 IV contrast; no GI contrast Comparison: None. FINDINGS: There are locules of air with edema which extends from the skin of the left buttocks to the left inferior pubic ramus. There is contact with the bone. There is erosive lucency of the posterior aspect of the inferior pubic ramus highly concerning for osteomyelitis. There is edema with a few locules of air which extend to the coccyx. Air is in contact with bone and there are erosive lucent changes of the sacrum/coccyx most concerning for acute osteomyelitis. Posterior lumbar fusion L4-L5. There are chronic changes of the left hip. A Santana catheter is present within a decompressed bladder. There is bilateral thickening concerning for cystitis. Air in the bladder lumen is likely iatrogenic. Atherosclerotic calcifications are present along the aorta and branches. The bowel gas pattern is nonspecific. There is atrophy of the paraspinous muscles, iliopsoas muscles, gluteus muscles, and hip muscles (paralysis patient). Impression: 1. Findings are highly suspicious for osteomyelitis of the left inferior pubic ramus and sacrum/coccyx junction with erosive lucency as well as bone in contact with air. Overlying locules of air and edema and wound present in the soft tissue. 2. Bladder wall thickening, consider cystitis. 3. Additional findings, as above. Report Dictated on Electronically Signed By: Geneva Lunsford MD Electronically Signed Date/Time: 04/22/2025 12:31 AM EDT ASSESSMENT AND PLAN: This is a 64 y.o. male with paraplegia, chronic sacral wounds and c/f osteomyelitis of his left inferior pubic ramus. - Will plan for OR for debridement on 04/24 - Patient consented at bedside. Understanding of the risks and benefits of the procedure and agreeable to proceed - Will nee to be NPO prior to the OR - Continue to hold Eliquis Patient discussed with attending, Dr. Carrero. Kathrin Nielson MD General Surgery Resident 04/22/25 4:39 AM This note may have been dictated using [employer] Practice Edition 2.6 and/or Fixet[employer] Voice Recognition Feature. The document was proofread; however, unrecognized voice recognition investment sales assistant errors may be present. [1] Past Medical History: Diagnosis Date Abnormal posture Abscess, perineum Anemia BPH (benign prostatic hyperplasia) Chronic back pain Hematuria Hip sprain Hyperlipidemia Hypertension Major depressive disorder, single episode, unspecified MRSA (methicillin resistant staph aureus) culture positive spine 2021 Muscle wasting and atrophy, not elsewhere classified, left lower leg Muscle weakness (generalized) Neuropathy Obstructive and reflux uropathy, unspecified Osteoarthritis Other abnormalities of gait and mobility Other reduced mobility Paraplegia (HCC) Sciatica Spinal stenosis of lumbar region with neurogenic claudication Type 2 diabetes mellitus without complication (CMS/HCC) (HCC) Urinary calculus, unspecified UTI (urinary tract infection) [2] Past Surgical History: Procedure Laterality Date ANKLE SURGERY Right He has a titanium plate to the right ankle KNEE SURGERY Left ACL KNEE SURGERY Left removal of screw LAMINECTOMY Left 10/24/2020 LEFT BILATERAL L2-3-4-5 DECOMPRESSION performed by Opal Vigil MD at [facility] OR ORTHOPEDIC SURGERY Right removal of hardware ankle US PLACE URETAL STENT PERC PRE-EXIST TRACT S&I (HISTORICAL) Bilateral 04/14/2024 Dr. Patel/Bashir [3] Current Facility-Administered Medications Medication Dose Route Frequency Provider Last Rate Last Admin acetaminophen (Tylenol) tablet 650 mg 650 mg Oral q6h PRN Alberto Boogie NP Or acetaminophen (Tylenol) suppository 650 mg 650 mg Rectal q6h PRN Alberto Boogie, SPEECH LANGUAGE PATHOLOGIST [Held by provider] apixaban (Eliquis) tablet 5 mg 5 mg Oral BID Alberto Boogie, SPEECH LANGUAGE PATHOLOGIST bisacodyl (Dulcolax) EC tablet 5 mg 5 mg Oral Daily PRN Alberto Miltons, SPEECH LANGUAGE PATHOLOGIST bisacodyl (Dulcolax) suppository 10 mg 10 mg Rectal Daily PRN Alberto Miltons, SPEECH LANGUAGE PATHOLOGIST calcium carbonate (Tums) chewable tablet 1,000 mg 1,000 mg Oral q8h PRN Alberto Miltons, SPEECH LANGUAGE PATHOLOGIST cefepime (Maxipime) 2,000 mg in sodium chloride 0.9 % 50 mL IVPB Mini-Bag Plus 2,000 mg IntraVENous q8h Alberto Boogie, SPEECH LANGUAGE PATHOLOGIST cyclobenzaprine (Flexeril) tablet 10 mg 10 mg Oral TID PRN Alberto Miltons, SPEECH LANGUAGE PATHOLOGIST dextrose 5 % infusion 100 mL/hr IntraVENous PRN Alberto Boogie, SPEECH LANGUAGE PATHOLOGIST dextrose 50 % solution 12.5 g 12.5 g IntraVENous PRN Alberto Boogie, SPEECH LANGUAGE PATHOLOGIST DULoxetine (Cymbalta) DR capsule 30 mg 30 mg Oral Daily Alberto Boogie, SPEECH LANGUAGE PATHOLOGIST ferrous sulfate tablet 325 mg 325 mg Oral Daily with breakfast Alberto Boogie, SPEECH LANGUAGE PATHOLOGIST glucagon (human recombinant) injection 1 mg 1 mg IntraMUSCular PRN Alberto Boogie, SPEECH LANGUAGE PATHOLOGIST glucose oral gel 15 g 15 g Oral PRN Alberto Miltons, SPEECH LANGUAGE PATHOLOGIST insulin glargine (Lantus) injection 45 Units 45 Units SubCUTAneous q AM Alberto Boogie, SPEECH LANGUAGE PATHOLOGIST Insulin Lispro (Humalog) injection 0-18 Units 0-18 Units SubCUTAneous TID WC Alberto Boogie, SPEECH LANGUAGE PATHOLOGIST And Insulin Lispro (Humalog) injection 0-18 Units 0-18 Units SubCUTAneous Nightly Alberto Miltons, SPEECH LANGUAGE PATHOLOGIST linaGLIPtin (Tradjenta) tablet 5 mg 5 mg Oral Daily Alberto Miltons, SPEECH LANGUAGE PATHOLOGIST midodrine (Proamatine) tablet 10 mg 10 mg Oral TID Alberto Boogie, SPEECH LANGUAGE PATHOLOGIST mirtazapine (Remeron) tablet 7.5 mg 7.5 mg Oral Nightly Alberto Boogie, SPEECH LANGUAGE PATHOLOGIST naloxone (Narcan) nasal spray 4 mg 4 mg Nasal PRN Alberto Boogie, SPEECH LANGUAGE PATHOLOGIST ondansetron ODT (Zofran-ODT) disintegrating tablet 4 mg 4 mg Oral q8h PRN Alberto MiltonTREVOR najera Or ondansetron (Zofran) injection 4 mg 4 mg IntraVENous q6h PRN Alberto BoogieTREVOR oxyCODONE (Roxicodone) immediate release tablet 15 mg 15 mg Oral 4x daily Alberto BoogieTREVOR polyethylene glycol (PEG) 3350 (Miralax) packet 17 g 17 g Oral BID Alberto BoogieTREVOR polyethylene glycol (PEG) 3350 (Miralax) packet 17 g 17 g Oral Daily PRN Alberto MiltonTREVOR najera pregabalin (Lyrica) capsule 200 mg 200 mg Oral TID Alberto BoogieTREVOR senna-docusate sodium (Senokot-S) 8.6-50 MG tablet 2 tablet 2 tablet Oral BID Alberto BoogieTREVOR tamsulosin (Flomax) 24 hr capsule 0.4 mg 0.4 mg Oral Daily Alberto BoogieTREVOR vancomycin IVPB 1500 mg in 250 mL NS (premix) 1,500 mg IntraVENous q12h Alberto BoogieTREVOR [4] Social History Socioeconomic History Marital status: Tobacco Use Smoking status: Every Day Current packs/day: 0.25 Average packs/day: 0.5 packs/day for 44.5 years (21.4 ttl pk-yrs) Types: Cigarettes Start date: 1977 Smokeless tobacco: Never Vaping Use Vaping status: Every Day Substances: Nicotine, Flavoring Substance and Sexual Activity Alcohol use: No Drug use: No Social Drivers of Health Financial Resource Strain: Low Risk (04/24/2023) Received from [facility] Overall Financial Resource Strain (CARDIA) Difficulty of Paying Living Expenses: Not hard at all Food Insecurity: No Food Insecurity (04/22/2025) Hunger Vital Sign Worried About Running Out of Food in the Last Year: Never true Ran Out of Food in the Last Year: Never true Transportation Needs: Unmet Transportation Needs (04/22/2025) PRAPARE - Transportation Lack of Transportation (Medical): Yes Lack of Transportation (Non-Medical): Yes Intimate Partner Violence: Not At Risk (04/22/2025) Humiliation, Afraid, Rape, and Kick questionnaire Fear of Current or Ex-Partner: No Emotionally Abused: No Physically Abused: No Sexually Abused: No Housing Stability: Low Risk (04/22/2025) Housing Stability Vital Sign Unable to Pay for Housing in the Last Year: No Number of Times Moved in the Last Year: 0 Homeless in the Last Year: No [5] No family history on file. Cosigned by Meliton Carrero MD at 04/22/2025 1:49 PM EDT Associated attestation - Meliton Carrero MD - 04/22/2025 1:49 PM EDT ATTENDING ADDENDUM Active Diagnoses/Problems this Admission: Problem List[1] I personally supervised the resident physician in the evaluation and development of a treatment plan for this patient on the same day of service as above. I personally discussed the review of systems and interviewed the patient along with performing a physical examination. I reviewed the recent events, imaging, labs, vital signs. In addition, I discussed the patient's condition and treatment options with him/her when possible. I have also reviewed and agree with the past medical, family, and social history unless otherwise noted. All of the patient's questions were answered and family updated when appropriate and possible. A complete review of systems was obtained and is negative except as stated in HPI and/or Subjective Section. CHIEF COMPLAINT: draining sacral wound PLAN: - as per Dr. Ling's note - I evaluated pt on 04/22/25 - 64M w/ PMH as below, presents for evaluation of chronic sacral wound - pt is non-toxic appearing, afebrile, VSS, chronic appearing stage 4 L gluteal ulcer with purulent drainage - CT imaging concerning for underlying osteomyelitis of left inferior pubic ramus with erosive lucency and overlying locules of air - of note, pt actively taking eliquis - will plan for debridement in OR 04/23 - hold eliquis - optimize blood glucose - abx and further management per primary Level of Medical Decision Making: []High [x]Moderate []Low Complexity: Acute illness with systemic symptoms (MOD) Risk: Prescription drug/IVF/colloid was initiated, discontinued, adjusted; or reviewed with decision to maintain current orders (MOD). Personally Reviewed/Independently interpreted patient's: [x]Epic notes [x]Radiology studies [x]Labs []EKG []Ordering tests []Other Discussed/ With: [x]Patient/Family [x]RN []Consultants [x]Primary []SW/TCC []Other I spent total time of 60 minutes reviewing previous notes, test results, and face to face with Anmol Reynolds discussing the diagnosis and importance of compliance with the treatment plan as well as documenting on the day of the visit. Time was spent, Reviewing medical record including recent tests and results Ordering prescription medications/tests and procedures Communicating results to the patient/family/caregiver Counseling/educating the patient/family/caregiver Documenting clinical information the patient's electronic record Coordination of care for the patient Performing a medical appropriate exam and evaluation Meliton Carrero MD, FACS Trauma, Surgical Critical Care & Acute Care Surgery Division of Trauma Department of Surgery [facility] [1] Patient Active Problem List Diagnosis Nicotine use disorder Unspecified osteoarthritis, unspecified site Pilonidal cyst without abscess Diabetes mellitus without complication (HCC) Lumbar radiculopathy Abnormal finding on EKG Hypertension Hyperglycemia Hip sprain Other intervertebral disc displacement, lumbar region Anxiety Lumbar stenosis with neurogenic claudication Spinal stenosis of lumbar region with neurogenic claudication Herniated nucleus pulposus, L5-S1, left Septic shock (HCC) Pressure injury of coccygeal region, stage 3 (HCC) Bladder calculus Calculus of ureter Positive blood cultures Other acute osteomyelitis, other site (HCC) Images from the original note were not included. Pharmacy Managed Vancomycin Dosing Service Consult Note Consult Date: 04/22/25 Patient Name: Anmol Franco Given Allergies: Patient has no known allergies. Age: 64 y.o. Sex: male Estimated body mass index is 25 kg/m as calculated from the following: Height as of this encounter: 1.905 m (6' 3"). Weight as of this encounter: 90.7 kg (200 lb). DW: 90.7 kg Lab Results Component Value Date CREATININE 0.65 (L) 04/21/2025 CREATININE 0.54 (L) 05/22/2024 BUN 10 04/21/2025 BUN 13 05/22/2024 WBC 12.5 (H) 04/21/2025 WBC 6.4 05/22/2024 Calculated CrCl: 125 mL/min (Cockcroft-Gault) Consulted By: Alberto Boogie NP Infectious Diagnosis: SSTI (AUC Goal 400-600 mg/L*hr) Random Vancomycin Level Due: 04/22/25 Antimicrobials: Patient recently received an antibiotic (last 12 hours) Date/Time Action Medication Dose Rate 04/22/25 0027 New Bag vancomycin IVPB 1500 mg in 250 mL NS (premix) 1,500 mg 125 mL/hr 04/21/25 2308 New Bag cefepime (Maxipime) 2,000 mg in sodium chloride 0.9 % 50 mL IVPB Mini-Bag Plus 2,000 mg 100 mL/hr Assessment/Plan: Doses, serum creatinine, and vancomycin levels interfaced automatically to [employer] and data has been analyzed and interpreted. Start Vancomycin 1500 mg every 12 hours based on patient age, weight, renal function, and infectious diagnosis (16.5 mg/kg). Predicted AUC = 499 mg/L*hr (goal 400-600 mg/L*hr) PAUC = 76% (probability that AUC is >400 mg/L*hr) Pconc = 8% (probability that Ctrough is above 20 mcg/mL (toxicity)) Will assess random level on 04/22/25 and adjust as appropriate. Trend serum creatinine. Orders placed. Thank you for this consult. Please secure text or call with questions. DATE: 04/22/25 TIME: 2:39 AM Nina Workman RPh Clinical Pharmacist Available via Secure Chat documented in this encounter [facility] 04-22-2025 Note Hospitalist Progress Note 04/22/2025 Subjective: Admit Date: 04/21/2025 PCP: Tab Dupont Room#: N4-465/[id number] B BRIEF HOSPITAL COURSE: 64-year-old male presenting with concern for a wound infection and concern for osteomyelitis. He was coming from a nursing facility. The nursing staff indicated that his sacrum was becoming worse and felt it was becoming infected. He is a paraplegic and has been this way for the last 4 years. In the ED, he was afebrile, heart rate 82, respiratory to 16, blood pressure of 113/62, SpO2 of 95% on room air. Regarding his labs, he was mildly hyponatremic with a sodium of 130, otherwise his CMP was unremarkable. He had a mild leukocytosis of 12.5. He had a negative lactic acid. He had a CT of the pelvis which was concerning for osteomyelitis of the left inferior pubic ramus and sacrum and coccyx junction with erosive lucency with bone in contact with air. There is also bladder wall thickening. General surgery saw him, and plan for OR for debridement on April 24. They advised to continue to hold Eliquis and make sure he was n.p.o. prior to surgery. Regarding infection history, he has a history of Proteus UTIs that have been resistant to cefepime, but susceptible to meropenem. He also has had Pseudomonas UTIs which are susceptible to cefepime. He has also had Klebsiella and wound cultures susceptible to cefepime, but resistant to piperacillin tazobactam. Interval History: No overnight issues. Case and plan discussed with patient and bedside nurse. All questions answered. Discussed the case with infectious disease, and given the history of infections he has had and resistant patterns, decided that meropenem might be the best option for him. Adult diet Regular NPO diet with enteral medications 24HR INTAKE/OUTPUT: No intake or output data in the 24 hours ending 04/22/25 1238 Past Medical History: Medical History[1] LABS: CBC: Recent Labs 04/21/252256 WBC 12.5* RBC 4.03* HGB 11.7* HCT 35.6* MCV 88.3 RDW 14.9 PLT 372 BMP: Recent Labs 04/21/252256 NA 130* K 4.3 CL 99 CO2 21* BUN 10 CREATININE 0.65* GLUCOSE 202* CALCIUM 8.5* ANIONGAP 10 LIVER PROFILE: Recent Labs 04/21/25 2257 AST 13 ALT 6 BILITOT 0.5 ALKPHOS 116 PROT 7.6 PT/INR: No results for input(s): "PROTIME", "INR" in the last 72 hours. CARDIAC ENZYMES: No results for input(s): "TROPONINI" in the last 72 hours. Procalcitonin: No results found for: "PROCAL" COVID-19 PCR: No results for input(s): "COVID19" in the last 72 hours. Objective: Vitals: BP 98/58 (BP Location: Right arm, Patient Position: Sitting) Pulse 71 Temp 36.9 ?C (98.5 ?F) (Temporal) Resp 16 Ht 6' 3" (1.905 m) Wt 195 lb 6.4 oz (88.6 kg) SpO2 94% BMI 24.42 kg/m? Pulse Ox: SpO2 Av.3 % Min: 94 % Max: 97 % Supplemental O2: Physical Exam Constitutional: General: He is not in acute distress. Cardiovascular: Rate and Rhythm: Normal rate. Pulses: Normal pulses. Heart sounds: No murmur heard. Pulmonary: Effort: Pulmonary effort is normal. No respiratory distress. Breath sounds: No wheezing. Abdominal: General: There is no distension. Palpations: Abdomen is soft. Tenderness: There is no abdominal tenderness. Neurological: Mental Status: He is alert. Medications: Scheduled PRN Scheduled Meds[2] PRN Meds[3] Continuous Continuous Meds[4] Assessment Acute, acute on chronic, unstable/uncontrolled chronic problems/diagnoses: Osteomyelitis of the sacrum, inferior pubic ramus and coccyx junction Presenting from nursing facility and with a history of being a paraplegic. He had a mild leukocytosis on presentation. He had a CT of the pelvis that demonstrated osteomyelitis of the sacrum, pubic ramus and coccyx. He has a history of a Proteus UTI that had been resistant to cefepime, but susceptible to meropenem. He had a Pseudomonas UTI in the past susceptible to cefepime. He also had a Klebsiella and wound culture so perceptible to cefepime but resistant to piperacillin/tazobactam. Plan - Infectious disease consulted - Discussed with ID and they agreed with my assessment to start meropenem -Pharmacy to dose vancomycin - Holding Eliquis - Debridement on April 24 Type 2 diabetes with hyperglycemia Blood glucose elevated Plan - Continue home Lantus for now 45 units Stable chronic problems affecting care, new non-acute diagnoses: History of paraplegia Depression/neuropathic pain-continue duloxetine Insomnia-continue mirtazapine Plan As a result of the above findings & factors, the following mgmt was pursued: - As above - am labs, replace lytes prn - PT/OT/CM/SW - delirium precautions: increase activity - DVT prophylaxis: SCDs and encourage ambulation Complexity: Acute illness or injury posing a threat to life or body function (HIGH). Risk: Use/consideration of therapy requiring intensive monitoring: parenteral (more content not included)... [facility] 04-22-2025 Plan of care note Problem: Pain - Adult Goal: Verbalizes/displays adequate comfort level or baseline comfort level Outcome: Progressing Problem: Safety - Adult Goal: Free from fall injury Outcome: Progressing Problem: Discharge Planning Goal: Discharge to home or other facility with appropriate resources Outcome: Progressing Problem: Chronic Conditions and Co-morbidities Goal: Patient's chronic conditions and co-morbidity symptoms are monitored and maintained or improved Outcome: Progressing [facility] 04-22-2025 Note Pharmacy to Dose Van comycin - Progress Note Lab Results Component Value Date CREATININE 0.65 (L) 04/21/2025 BUN 10 04/21/2025 WBC 12.5 (H) 04/21/2025 VANCORANDOM 12.3 (L) 04/16/2024 VANCOTROUGH 12.4 04/22/2025 Doses, serum creatinine, and vancomycin levels interfaced automatically to [employer] TV and data has been analyzed and interpreted. Infectious Diagnosis: SSTI Est CrCl: 144 mL/min (Cockcroft-Gault) Assessment: Current regimen vancomycin 1500 mg every 12 hours (16.9 mg/kg) Predicted AUC = 489 mg/L*hr (goal 400-600 mg/L*hr) PAUC = 92% (probability that AUC is >400 mg/L*hr) Pconc = <5% (probability that Ctrough is above 20 mcg/mL (toxicity)) Plan: Is the current dose therapeutic? [x] Yes - obtain next level on 04/25 unless predicted AUC is sub-/supra-therapeutic or change in serum creatinine. Trend serum creatinine. Trend AUC using Bayesian Modeling. Orders placed. DATE: 04/22/25 TIME: 7:20 AM Jack Salcedo PharmD Clinical Pharmacist Available via Secure Chat [facility] 04-22-2025 Plan of care note Problem: Pain - Adult Goal: Verbalizes/displays adequate comfort level or baseline comfort level Outcome: Progressing Problem: Safety - Adult Goal: Free from fall injury Outcome: Progressing Problem: Discharge Planning Goal: Discharge to home or other facility with appropriate resources Outcome: Progressing Problem: Chronic Conditions and Co-morbidities Goal: Patient's chronic conditions and co-morbidity symptoms are monitored and maintained or improved Outcome: Progressing [facility] 04-22-2025 Consult note Associated Order (s): IP CONSULT TO GENERAL SURGERY Images from the original note were not included. Department of General Surgery Surgical Service - [facility] Resident Consult Note 04/22/2025 CHIEF COMPLAINT: Chief Complaint Patient presents with Wound Infection Per EMS pt was sent here from the [place] for wound infections. Pt has two wound on his sacrum - one at the top of sacrum and one at the bottom of the buttocks. Denies any fever/ CP/FEVER/ SOB. Pt is paralysis. Reason for Consult: "osteomyleitis of left inferior pubic ramus with sacral wounds" HISTORY OF PRESENT ILLNESS: Anmol Reynolds is a 64 y.o. male with significant past medical history of paraplegia s/[facility], HLD, HTN, MDD, OA, a-fib on eliquis, chronic sacral wounds who presents from his care home after he states the nurses have become more concerned about his sacral wound. Surgery was consulted for evaluation of these sacral wounds and concern for osteomyelitis of the left inferior pubic ramus. Patient states that he is feeling well overall. He reports he was brought in due to concerns for his sacral wound. Reports he is unsure if there has been increased drainage or redness but does endorse having infections requiring debridement prior to this. He is unsure why he takes Eliquis. On evaluation patient was HDS, afebrile. Labs reviewed significant for: WBC 12.5, HGB 11.7. CMP largely unremarkable. Wound cultures: many gram negative bacilli, gram + cocci in pairs and chains and clusters, gram positive bacilli. Imaging demonstrated: CT Pelvis- erosive lucency and bone in contact with air at left inferior pubic ramus and sacrum/coccyx junction. Overlying air and edema present in soft tissue along the wound. Medical History[1] Surgical History[2] Medications Prior to Admission: Medications Ordered Prior to Encounter[3] Allergies: Patient has no known allergies. Social History[4] Family History[5] REVIEW OF SYSTEMS: 11 point review of systems obtained, and negative unless otherwise mentioned in HPI PHYSICAL EXAM: Vitals: 04/22/25 0230 BP: 108/65 Pulse: 73 Resp: 16 Temp: 36.4 C (97.5 F) SpO2: 97% No intake/output data recorded. CONSTITUTIONAL: awake, alert, cooperative, no apparent distress NECK: Supple, symmetrical, trachea midline, no adenopathy LUNGS: No increased work of breathing, good air exchange CARDIOVASCULAR: Regular rate and rhythm ABDOMEN: Soft, non-distended, non-tender, no rebound, no guarding, no masses palpated, CHEST: no masses palpated, no axillary or supraclavicular adenopathy GENITAL/URINARY: Not examined MUSCULOSKELETAL: There is no redness, warmth, or swelling of the joints. Full range of motion noted. NEUROLOGIC: Awake, alert, oriented to name, place and time. SKIN: normal skin color, texture, no redness, warmth, or swelling DATA: CBC: Lab Results Component Value Date WBC 12.5 (H) 04/21/2025 RBC 4.03 (L) 04/21/2025 HGB 11.7 (L) 04/21/2025 HCT 35.6 (L) 04/21/2025 MCV 88.3 04/21/2025 MCH 29.0 04/21/2025 MCHC 32.9 04/21/2025 RDW 14.9 04/21/2025 PLT 372 04/21/2025 MPV 9.8 04/21/2025 BMP: Lab Results Component Value Date NA 130 (L) 04/21/2025 K 4.3 04/21/2025 CL 99 04/21/2025 CO2 21 (L) 04/21/2025 BUN 10 04/21/2025 CREATININE 0.65 (L) 04/21/2025 CALCIUM 8.5 (L) 04/21/2025 GLUCOSE 202 (H) 04/21/2025 Hepatic Function Panel: Lab Results Component Value Date ALKPHOS 116 04/21/2025 ALT 6 04/21/2025 AST 13 04/21/2025 PROT 7.6 04/21/2025 BILITOT 0.5 04/21/2025 PT/INR: No results found for: "PROTIME", "INR" Troponin: No results found for: TROPONINI LIPASE: No results found for: LIPASE IMAGING: CT pelvis w IV contrast Narrative: [facility] 1960 [id number] Exam Date/Time: 04/22/2025 00:01 Procedure: CT PELVIS W IV CONTRAST Ordering Provider: CAMPOS JEFFREY Reason For Exam: sacral, right buttocks wound Gender: Male Age: 64 years Exam: CT PELVIS W IV CONTRAST Indication: Sacral and buttocks wound. The patient is paralyzed. Scan Parameters: Multiple axial CT images of the pelvis were obtained. Coronal and sagittal reconstructions were reviewed as well. ALARA protocol. Dose reduction was employed with automated exposure control. Contrast: 75 mL of Isovue-370 IV contrast; no GI contrast Comparison: None. FINDINGS: There are locules of air with edema which extends from the skin of the left buttocks to the left inferior pubic ramus. There is contact with the bone. There is erosive lucency of the posterior aspect of the inferior pubic ramus highly concerning for osteomyelitis. There is edema with a few locules of air which extend to the coccyx. Air is in contact with bone and there are erosive lucent changes of the sacrum/coccyx most concerning for acute osteomyelitis. Posterior lumbar fusion L4-L5. There are chronic changes of the left hip. A Santana catheter is present within a decompressed bladder. There is bilateral thickening concerning for cystitis. Air in the bladder lumen is likely iatrogenic. Atherosclerotic calcifications are present along the aorta and branches. The bowel gas pattern is nonspecific. There is atrophy of the paraspinous muscles, iliopsoas muscles, gluteus muscles, and hip muscles (paralysis patient). Impression: 1. Findings are highly suspicious for osteomyelitis of the left inferior pubic ramus and sacrum/coccyx junction with erosive lucency as well as bone in contact with air. Overlying locules of air and edema and wound present in the soft tissue. 2. Bladder wall thickening, consider cystitis. 3. Additional findings, as above. Report Dictated on Electronically Signed By: Geneva Lunsford MD Electronically Signed Date/Time: 04/22/2025 12:31 AM EDT ASSESSMENT AND PLAN: This is a 64 y.o. male with paraplegia, chronic sacral wounds and c/f osteomyelitis of his left inferior pubic ramus. - Will plan for OR for debridement on 04/24 - Patient consented at bedside. Understanding of the risks and benefits of the procedure and agreeable to proceed - Will nee to be NPO prior to the OR - Continue to hold Eliquis Patient discussed with attending, Dr. Carrero. Kathrin Nielson MD General Surgery Resident 04/22/25 4:39 AM This note may have been dictated using [employer] Edition 2.6 and/or Fix[employer] Voice Recognition Feature. The document was proofread; however, unrecognized voice recognition investment sales assistant errors may be present. [1] Past Medical History: Diagnosis Date Abnormal posture Abscess, perineum Anemia BPH (benign prostatic hyperplasia) Chronic back pain Hematuria Hip sprain Hyperlipidemia Hypertension Major depressive disorder, single episode, unspecified MRSA (methicillin resistant staph aureus) culture positive spine 2021 Muscle wasting and atrophy, not elsewhere classified, left lower leg Muscle weakness (generalized) Neuropathy Obstructive and reflux uropathy, unspecified Osteoarthritis Other abnormalities of gait and mobility Other reduced mobility Paraplegia (HCC) Sciatica Spinal stenosis of lumbar region with neurogenic claudication Type 2 diabetes mellitus without complication (CMS/HCC) (HCC) Urinary calculus, unspecified UTI (urinary tract infection) [2] Past Surgical History: Procedure Laterality Date ANKLE SURGERY Right He has a titanium plate to the right ankle KNEE SURGERY Left ACL KNEE SURGERY Left removal of screw LAMINECTOMY Left 10/24/2020 LEFT BILATERAL L2-3-4-5 DECOMPRESSION performed by Opal Vigil MD at [facility] OR ORTHOPEDIC SURGERY Right removal of hardware ankle US PLACE URETAL STENT PERC PRE-EXIST TRACT S&I (HISTORICAL) Bilateral 04/14/2024 Dr. Patel/Bashir [3] Current Facility-Administered Medications Medication Dose Route Frequency Provider Last Rate Last Admin acetaminophen (Tylenol) tablet 650 mg 650 mg Oral q6h PRN Alberto Sanchez Keagan, TREVOR Or acetaminophen (Tylenol) suppository 650 mg 650 mg Rectal q6h PRN Albreto Sanchez Keagan, SPEECH LANGUAGE PATHOLOGIST [Held by provider] apixaban (Eliquis) tablet 5 mg 5 mg Oral BID Alberto Miltons, SPEECH LANGUAGE PATHOLOGIST bisacodyl (Dulcolax) EC tablet 5 mg 5 mg Oral Daily PRN Alberto Miltons, SPEECH LANGUAGE PATHOLOGIST bisacodyl (Dulcolax) suppository 10 mg 10 mg Rectal Daily PRN Alberto Boogie, SPEECH LANGUAGE PATHOLOGIST calcium carbonate (Tums) chewable tablet 1,000 mg 1,000 mg Oral q8h PRN Alberto Miltons, SPEECH LANGUAGE PATHOLOGIST cefepime (Maxipime) 2,000 mg in sodium chloride 0.9 % 50 mL IVPB Mini-Bag Plus 2,000 mg IntraVENous q8h Alberto Boogie, SPEECH LANGUAGE PATHOLOGIST cyclobenzaprine (Flexeril) tablet 10 mg 10 mg Oral TID PRN Alberto Boogie, SPEECH LANGUAGE PATHOLOGIST dextrose 5 % infusion 100 mL/hr IntraVENous PRN Alberto Boogie, SPEECH LANGUAGE PATHOLOGIST dextrose 50 % solution 12.5 g 12.5 g IntraVENous PRN Alberto Boogie, SPEECH LANGUAGE PATHOLOGIST DULoxetine (Cymbalta) DR capsule 30 mg 30 mg Oral Daily Alberto Boogie, SPEECH LANGUAGE PATHOLOGIST ferrous sulfate tablet 325 mg 325 mg Oral Daily with breakfast Alberto Boogie, SPEECH LANGUAGE PATHOLOGIST glucagon (human recombinant) injection 1 mg 1 mg IntraMUSCular PRN Alberto Boogie, SPEECH LANGUAGE PATHOLOGIST glucose oral gel 15 g 15 g Oral PRN Alberto Miltons, SPEECH LANGUAGE PATHOLOGIST insulin glargine (Lantus) injection 45 Units 45 Units SubCUTAneous q AM Alberto Powellvins, SPEECH LANGUAGE PATHOLOGIST Insulin Lispro (Humalog) injection 0-18 Units 0-18 Units SubCUTAneous TID WC Alberto Sanchez Keagan, SPEECH LANGUAGE PATHOLOGIST And Insulin Lispro (Humalog) injection 0-18 Units 0-18 Units SubCUTAneous Nightly Alberto Miltons, SPEECH LANGUAGE PATHOLOGIST linaGLIPtin (Tradjenta) tablet 5 mg 5 mg Oral Daily Alberto Boogie, TREVOR midodrine (Proamatine) tablet 10 mg 10 mg Oral TID Alberto BoogieTREVOR mirtazapine (Remeron) tablet 7.5 mg 7.5 mg Oral Nightly Alberto BoogieTREVOR naloxone (Narcan) nasal spray 4 mg 4 mg Nasal PRN Alberto BoogieTREVOR ondansetron ODT (Zofran-ODT) disintegrating tablet 4 mg 4 mg Oral q8h PRN Alberto Sanchez TREVOR Boogie Or ondansetron (Zofran) injection 4 mg 4 mg IntraVENous q6h PRN Alberto MiltonTREVOR najera oxyCODONE (Roxicodone) immediate release tablet 15 mg 15 mg Oral 4x daily Alberto BoogieTREVOR polyethylene glycol (PEG) 3350 (Miralax) packet 17 g 17 g Oral BID Alberto BoogieTREVOR polyethylene glycol (PEG) 3350 (Miralax) packet 17 g 17 g Oral Daily PRN Alberto BoogieTREVOR pregabalin (Lyrica) capsule 200 mg 200 mg Oral TID Alberto BoogieTREVOR senna-docusate sodium (Senokot-S) 8.6-50 MG tablet 2 tablet 2 tablet Oral BID Alberto BoogieTREVOR tamsulosin (Flomax) 24 hr capsule 0.4 mg 0.4 mg Oral Daily Alberto BoogieTREVOR vancomycin IVPB 1500 mg in 250 mL NS (premix) 1,500 mg IntraVENous q12h Alberto MiltonTREVOR najera [4] Social History Socioeconomic History Marital status: Tobacco Use Smoking status: Every Day Current packs/day: 0.25 Average packs/day: 0.5 packs/day for 44.5 years (21.4 ttl pk-yrs) Types: Cigarettes Start date: 1977 Smokeless tobacco: Never Vaping Use Vaping status: Every Day Substances: Nicotine, Flavoring Substance and Sexual Activity Alcohol use: No Drug use: No Social Drivers of Health Financial Resource Strain: Low Risk (04/24/2023) Received from [facility] Overall Financial Resource Strain (CARDIA) Difficulty of Paying Living Expenses: Not hard at all Food Insecurity: No Food Insecurity (04/22/2025) Hunger Vital Sign Worried About Running Out of Food in the Last Year: Never true Ran Out of Food in the Last Year: Never true Transportation Needs: Unmet Transportation Needs (04/22/2025) PRAPARE - Transportation Lack of Transportation (Medical): Yes Lack of Transportation (Non-Medical): Yes Intimate Partner Violence: Not At Risk (04/22/2025) Humiliation, Afraid, Rape, and Kick questionnaire Fear of Current or Ex-Partner: No Emotionally Abused: No Physically Abused: No Sexually Abused: No Housing Stability: Low Risk (04/22/2025) Housing Stability Vital Sign Unable to Pay for Housing in the Last Year: No Number of Times Moved in the Last Year: 0 Homeless in the Last Year: No [5] No family history on file. Cosigned by Meliton Carrero MD at 04/22/2025 1:49 PM EDT Associated attestation - Meliton Carrero MD - 04/22/2025 1:49 PM EDT ATTENDING ADDENDUM Active Diagnoses/Problems this Admission: Problem List[1] I personally supervised the resident physician in the evaluation and development of a treatment plan for this patient on the same day of service as above. I personally discussed the review of systems and interviewed the patient along with performing a physical examination. I reviewed the recent events, imaging, labs, vital signs. In addition, I discussed the patient's condition and treatment options with him/her when possible. I have also reviewed and agree with the past medical, family, and social history unless otherwise noted. All of the patient's questions were answered and family updated when appropriate and possible. A complete review of systems was obtained and is negative except as stated in HPI and/or Subjective Section. CHIEF COMPLAINT: draining sacral wound PLAN: - as per Dr. Ling's note - I evaluated pt on 04/22/25 - 64M w/ PMH as below, presents for evaluation of chronic sacral wound - pt is non-toxic appearing, afebrile, VSS, chronic appearing stage 4 L gluteal ulcer with purulent drainage - CT imaging concerning for underlying osteomyelitis of left inferior pubic ramus with erosive lucency and overlying locules of air - of note, pt actively taking eliquis - will plan for debridement in OR 04/23 - hold eliquis - optimize blood glucose - abx and further management per primary Level of Medical Decision Making: []High [x]Moderate []Low Complexity: Acute illness with systemic symptoms (MOD) Risk: Prescription drug/IVF/colloid was initiated, discontinued, adjusted; or reviewed with decision to maintain current orders (MOD). Personally Reviewed/Independently interpreted patient's: [x]Epic notes [x]Radiology studies [x]Labs []EKG []Ordering tests []Other Discussed/ With: [x]Patient/Family [x]RN []Consultants [x]Primary []SW/TCC []Other I spent total time of 60 minutes reviewing previous notes, test results, and face to face with Anmol Reynolds discussing the diagnosis and importance of compliance with the treatment plan as well as documenting on the day of the visit. Time was spent, Reviewing medical record including recent tests and results Ordering prescription medications/tests and procedures Communicating results to the patient/family/caregiver Counseling/educating the patient/family/caregiver Documenting clinical information the patient's electronic record Coordination of care for the patient Performing a medical appropriate exam and evaluation Meliton Carrero MD, FACS Trauma, Surgical Critical Care & Acute Care Surgery Division of Trauma Department of Surgery [facility] [1] Patient Active Problem List Diagnosis Nicotine use disorder Unspecified osteoarthritis, unspecified site Pilonidal cyst without abscess Diabetes mellitus without complication (HCC) Lumbar radiculopathy Abnormal finding on EKG Hypertension Hyperglycemia Hip sprain Other intervertebral disc displacement, lumbar region Anxiety Lumbar stenosis with neurogenic claudication Spinal stenosis of lumbar region with neurogenic claudication Herniated nucleus pulposus, L5-S1, left Septic shock (HCC) Pressure injury of coccygeal region, stage 3 (HCC) Bladder calculus Calculus of ureter Positive blood cultures Other acute osteomyelitis, other site ([facility]) [facility] 04-22-2025 Consult note Formatting of th is note is different from the original. Images from the original note were not included. Pharmacy Managed Vancomycin Dosing Service Consult Note Consult Date: 04/22/25 Patient Name: Anmol Reynolds Allergies: Patient has no known allergies. Age: 64 y.o. Sex: male Estimated body mass index is 25 kg/m as calculated from the following: Height as of this encounter: 1.905 m (6' 3"). Weight as of this encounter: 90.7 kg (200 lb). DW: 90.7 kg Lab Results Component Value Date CREATININE 0.65 (L) 04/21/2025 CREATININE 0.54 (L) 05/22/2024 BUN 10 04/21/2025 BUN 13 05/22/2024 WBC 12.5 (H) 04/21/2025 WBC 6.4 05/22/2024 Calculated CrCl: 125 mL/min (Cockcroft-Gault) Consulted By: Alberto Boogie NP Infectious Diagnosis: SSTI (AUC Goal 400-600 mg/L*hr) Random Vancomycin Level Due: 04/22/25 Antimicrobials: Patient recently received an antibiotic (last 12 hours) Date/Time Action Medication Dose Rate 04/22/25 0027 New Bag vancomycin IVPB 1500 mg in 250 mL NS (premix) 1,500 mg 125 mL/hr 04/21/25 2308 New Bag cefepime (Maxipime) 2,000 mg in sodium chloride 0.9 % 50 mL IVPB Mini-Bag Plus 2,000 mg 100 mL/hr Assessment/Plan: Doses, serum creatinine, and vancomycin levels interfaced automatically to [employer] and data has been analyzed and interpreted. Start Vancomycin 1500 mg every 12 hours based on patient age, weight, renal function, and infectious diagnosis (16.5 mg/kg). Predicted AUC = 499 mg/L*hr (goal 400-600 mg/L*hr) PAUC = 76% (probability that AUC is >400 mg/L*hr) Pconc = 8% (probability that Ctrough is above 20 mcg/mL (toxicity)) Will assess random level on 04/22/25 and adjust as appropriate. Trend serum creatinine. Orders placed. Thank you for this consult. Please secure text or call with questions. DATE: 04/22/25 TIME: 2:39 AM Nina Workman RPh Clinical Pharmacist Available via Secure Chat [facility] 04-22-2025 History and physical note Attending History and Physical Admit Date: 04/21/2025 PCP: Tab Dupont CHIEF COMPLAINT: Wound infection Reason for Admission: Osteomyelitis History Obtained From: patient HISTORY OF PRESENT ILLNESS: Anmol is a 64 y.o. male with past medical history below who presents with chief complaint listed above. Patient sent to [facility] ER by [facility] custodial staff to leave the patient's wounds on his sacrum were worsening and becoming infected. Patient is a paraplegic for the last 4 years after surgical complication with Dr. Ashley at [facility]. ER workup was significant for sodium of 130, lactic acid 1.1, WBCs 12.5, ESR 78, wound culture showing many polymorphonuclear leukocytes per low power field, many gram-negative bacilli, many gram-positive cocci in pairs and chains, few gram-positive cocci in clusters, and few gram-positive bacilli, CT abdomen and pelvis shows findings which are highly suspicious for osteomyelitis of the left inferior pubic ramus and sacrum/coccyx junction with erosive lucency as well as bone in contact with air overlying locules of air and edema and wound present in the soft tissue. Patient denies any pain or feelings of any worsening infection however this is complicated by patient's paraplegic status and inability to feel his wound. Patient denies any fevers, chills, fatigue, malaise, chest pain, chest tightness, shortness of breath, weakness, or any other changes. Patient states he feels like how he normally does but states that the care home felt like his wounds were getting worse and that is why they sent him. Will admit for further evaluation and management. Past Medical History: Medical History[1] Past Surgical History: Surgical History[2] Social History: Social History Socioeconomic History Marital status: Spouse name: Not on file Number of children: Not on file Years of education: Not on file Highest education level: Not on file Occupational History Not on file Tobacco Use Smoking status: Every Day Current packs/day: 0.25 Average packs/day: 0.5 packs/day for 44.5 years (21.4 ttl pk-yrs) Types: Cigarettes Start date: 1977 Smokeless tobacco: Never Vaping Use Vaping status: Every Day Substances: Nicotine, Flavoring Substance and Sexual Activity Alcohol use: No Drug use: No Sexual activity: Not on file Other Topics Concern Not on file Social History Narrative Not on file Social Drivers of Health Financial Resource Strain: Low Risk (04/24/2023) Received from [facility] Overall Financial Resource Strain (CARDIA) Difficulty of Paying Living Expenses: Not hard at all Food Insecurity: No Food Insecurity (02/17/2025) Received from [facility] Hunger Vital Sign Worried About Running Out of Food in the Last Year: Never true Ran Out of Food in the Last Year: Never true Transportation Needs: No Transportation Needs (02/17/2025) Received from [facility] PRAPARE - Transportation Lack of Transportation (Medical): No Lack of Transportation (Non-Medical): No Physical Activity: Not on file Stress: Not on file Social Connections: Not on file Intimate Partner Violence: Not At Risk (05/18/2024) Humiliation, Afraid, Rape, and Kick questionnaire Fear of Current or Ex-Partner: No Emotionally Abused: No Physically Abused: No Sexually Abused: No Housing Stability: Unknown (02/17/2025) Received from [facility] Housing Stability Vital Sign Unable to Pay for Housing in the Last Year: No Number of Times Moved in the Last Year: Not on file Homeless in the Last Year: No Family History: Family History[3] Medications Prior to Admission: Current Medications[4] Allergies: Allergies[5] REVIEW OF SYSTEMS: A focused review of systems was performed and is negative except as stated in above HPI. Vitals: BP 113/62 (BP Location: Right arm, Patient Position: Lying) Pulse 82 Temp 36.7 C (98.1 F) (Oral) Resp 16 Ht 6' 3" (1.905 m) Wt 200 lb (90.7 kg) SpO2 95% BMI 25.00 kg/m BMI Classification: Overweight (BMI 25.0-29.9) Pulse Ox: SpO2 Av % Min: 95 % Max: 95 % Supplemental O2: PHYSICAL EXAM: Physical Exam Constitutional: Appearance: He is ill-appearing. HENT: Head: Normocephalic and atraumatic. Nose: Nose normal. Mouth/Throat: Mouth: Mucous membranes are moist. Pharynx: Oropharynx is clear. No oropharyngeal exudate or posterior oropharyngeal erythema. Eyes: General: Right eye: No discharge. Left eye: No discharge. Cardiovascular: Rate and Rhythm: Normal rate and regular rhythm. Pulses: Normal pulses. Pulmonary: Effort: Pulmonary effort is normal. Breath sounds: Normal breath sounds. Abdominal: General: Bowel sounds are normal. Palpations: Abdomen is soft. Skin: General: Skin is warm and dry. Findings: Lesion present. Comments: Sacral wound Neurological: Mental Status: He is alert and oriented to person, place, and time. Mental status is at baseline. Sensory: Sensory deficit present. Motor: Weakness present. Coordination: Coordination abnormal. Gait: Gait abnormal. Comments: Paraplegic for 4 years Psychiatric: Mood and Affect: Mood normal. Behavior: Behavior normal. Thought Content: Thought content normal. Judgment: Judgment normal. DATA: CBC: Recent Labs 04/21/25 2257 WBC 12.5* RBC 4.03* HGB 11.7* HCT 35.6* MCV 88.3 RDW 14.9 PLT 372 BMP: Recent Labs 04/21/25 2257 NA 130* K 4.3 CL 99 CO2 21* BUN 10 CREATININE 0.65* GLUCOSE 202* CALCIUM 8.5* ANIONGAP 10 LIVER PROFILE: Recent Labs 04/21/25 2257 AST 13 ALT 6 BILITOT 0.5 ALKPHOS 116 PROT 7.6 PT/INR: No results for input(s): "PROTIME", "INR" in the last 72 hours. CARDIAC ENZYMES: No results for input(s): "TROPONINI" in the last 72 hours. Procalcitonin: No results found for: "PROCAL" Urine Culture: Results for orders placed or performed during the hospital encounter of 05/17/24 Urine culture Collection Time: 05/18/24 12:16 AM Specimen: Urine, Clean Catch Result Value Ref Range Urine Culture >100,000 CFU/mL Proteus mirabilis (A) Susceptibility Proteus mirabilis - BROTH MICRODILUTION Ampicillin Resistant Ampicillin / Sulbactam Resistant Aztreonam <=1 Susceptible ug/ml Cefazolin Resistant Cefepime Resistant Ceftriaxone 2 Intermediate ug/ml Ciprofloxacin >=4 Resistant ug/ml Gentamicin <=1 Susceptible ug/ml Meropenem <=0.25 Susceptible ug/ml Nitrofurantoin Resistant Piperacillin / Tazobactam Resistant Trimethoprim / Sulfamethoxazole 160 Resistant ug/ml COVID-19 PCR: No results for input(s): "COVID19" in the last 72 hours. I reviewed: [x] laboratory results [x] radiographic results At the time of today's encounter. Pt was advised of the results. Data: (CAT1) Reviewed 3 or more notes from different specialty or health system (each=1). (CAT1) Reviewed 3 or more labs/studies ordered by another provider not previously counted (each=1, panels count as 1). (CAT1) Ordered 3 or more new labs and/or studies (each=1, panels count as 1). (CAT3) Mgmt of the patient was discussed with Dr. Bueno, who stated, in summary: large sacral and gluteal wound suspicious for osteomyelitis. On Vanco and cefepime will most likely need ID consult (LOW: 2x CAT1 or independent historian MOD: 3x CAT1 or 1x CAT3 EXTENSIVE: 3x CAT1 and 1x CAT3) Assessment Discussed management with the ED provider and agree with hospitalization. Acute, acute on chronic, unstable/uncontrolled chronic problems/diagnoses: Sacral wounds Wound infection Stable chronic problems affecting care, new non-acute diagnoses: History of paraplegia since 2020 CAD Depression Iron deficiency anemia Type 2 diabetes Hypotension Chronic pain Neuropathy BPH GERD Constipation Plan As a result of the above findings & factors, the following mgmt was pursued: - Consult orthopedics for possible osteomyelitis - Consult infectious disease for wound infection - Patient currently on IV Vanco and cefepime - Pharmacy to dose vancomycin - Hold Eliquis pending orthopedic evaluation for possible intervention - Wound care consult - Telemetry monitoring - am labs, replace lytes prn - PT/OT/CM/SW - delirium precautions: increase activity - DVT prophylaxis: SCDs and encourage ambulation Complexity: Acute illness or injury posing a threat to life or body function (HIGH). Risk: Admission to hospital-level care was considered or occurred (HIGH). Advance Directive: Prior Anticipated Discharge - Date -04/25 - Location - Skilled Facility - Pending the following -orthopedic and infectious disease consultations Total time spent (which include face to face and non face to face encounters) : 60 minutes. Extended Emergency Contact Information Primary Emergency Contact: Ronald Reynolds Mobile Relation: Sibling Secondary Emergency Contact: SUMI REYNOLDS Mobile Relation: Daughter [employer] Anmol Reynolds : 1960 Primary Care Physician: Tab Dupont The patient and/or family/surrogate voluntarily agreed to participate in ACP services. Patient s cognitive capacity: Alert and oriented x 4 Code Status: [X] [FULL CODE - Continue all advanced life support: CPR,intubation,invasive procedures] [_] [DNR-CCA - DO NOT do CPR, intubation] [_] [DNR-SUPPORT TEAM ASSOC - Comfort care only] [_] DNR form [was/was not] signed Summary of discussion: Patient wishes to be a full code at this time I answered all the patient/family questions that I could within the range and scope of the current medical situation. We discussed the medical conditions, risks, benefits, outcomes, and goals of care at this time for the patient's medical issues at hand in the face of the patient's chronic issues and current presentation. Total time spent: 5 minutes were spent discussing the patient's resuscitation status, advance care planning, and end of life care, with patient and/or family/surrogate. Alberto Boogie, [facility] Division of Hospitalist Medicine [1] Past Medical History: Diagnosis Date Abnormal posture Abscess, perineum Anemia BPH (benign prostatic hyperplasia) Chronic back pain Hematuria Hip sprain Hyperlipidemia Hypertension Major depressive disorder, single episode, unspecified MRSA (methicillin resistant staph aureus) culture positive spine 2021 Muscle wasting and atrophy, not elsewhere classified, left lower leg Muscle weakness (generalized) Neuropathy Obstructive and reflux uropathy, unspecified Osteoarthritis Other abnormalities of gait and mobility Other reduced mobility Paraplegia (HCC) Sciatica Spinal stenosis of lumbar region with neurogenic claudication Type 2 diabetes mellitus without complication (CMS/HCC) (HCC) Urinary calculus, unspecified UTI (urinary tract infection) [2] Past Surgical History: Procedure Laterality Date ANKLE SURGERY Right He has a titanium plate to the right ankle KNEE SURGERY Left ACL KNEE SURGERY Left removal of screw LAMINECTOMY Left 10/24/2020 LEFT BILATERAL L2-3-4-5 DECOMPRESSION performed by Opal Vigil MD at [facility] OR ORTHOPEDIC SURGERY Right removal of hardware ankle US PLACE URETAL STENT PERC PRE-EXIST TRACT S&I (HISTORICAL) Bilateral 04/14/2024 Dr. Patel/Bashir [3] No family history on file. [4] Current Facility-Administered Medications: vancomycin IVPB 1500 mg in 250 mL NS (premix), 1,500 mg, IntraVENous, Once, Chele León MD, Last Rate: 125 mL/hr at 04/22/2526, 1,500 mg at 04/22/25 002 Current Outpatient Medications: acetaminophen (Tylenol) 325 MG tablet, Take 650 mg by mouth every 6 hours as needed. For elevated temp and/or pain. Do not exceed 3 grams in 24 hour period., Disp: , Rfl: acetic acid 0.25 % irrigation, , Disp: , Rfl: alogliptin (Nesina) 25 MG tablet, daily. (Patient not taking: Reported on 03/07/2025), Disp: , Rfl: apixaban (Eliquis) 5 MG tablet, Take 5 mg by mouth twice a day., Disp: , Rfl: aspirin 81 MG EC tablet, Take 81 mg by mouth daily. (Patient not taking: Reported on 03/07/2025), Disp: , Rfl: bisacodyl (Dulcolax) 5 MG EC tablet, Take 5 mg by mouth Daily as needed for constipation. Do not crush, chew, or split., Disp: , Rfl: bisacodyl (Dulcolax) 5 mg split suppository, Insert into the rectum Daily as needed., Disp: , Rfl: calcium carbonate (Tums) 500 MG chewable tablet, 1,000 mg every 8 hours as needed for indigestion or heartburn., Disp: , Rfl: cyclobenzaprine (Flexeril) 10 MG tablet, Take 10 mg by mouth 3 times daily as needed for muscle spasms., Disp: , Rfl: docusate sodium (Colace) 100 MG tablet, Take 100 mg by mouth 2 times daily. (Patient not taking: Reported on 03/07/2025), Disp: , Rfl: DULoxetine (Cymbalta) [address] capsule, Take 30 mg by mouth daily., Disp: , Rfl: ferrous sulfate 325 (65 Fe) MG tablet, Take 325 mg by mouth daily (with breakfast)., Disp: , Rfl: Hypromellose (Pure & Gentle Lubricant) 0.3 % solution, Administer 1 drop into affected eye(s) if needed. (Patient not taking: Reported on 03/07/2025), Disp: , Rfl: insulin glargine (Lantus) 100 UNIT/ML pen, Inject 45 Units under the skin every morning., Disp: , Rfl: Insulin Lispro (Humalog) 100 UNIT/ML solution injection, Inject 0-28 Units under the skin. 0-160=0 units; 161-200=14 units, 201-250=18 units, 251-300=20 units 301-350=22 units, 351-400=28 units, 401 or higher give 28 units and call physician., Disp: , Rfl: linaGLIPtin (Tradjenta) 5 MG tablet, 5 mg daily., Disp: , Rfl: Magnesium Hydroxide (MILK OF MAGNESIA PO), Take 30 mL by mouth Daily as needed. (Patient not taking: Reported on 03/07/2025), Disp: , Rfl: midodrine (Proamatine) 10 MG tablet, Take 10 mg by mouth 3 times a day., Disp: , Rfl: mirtazapine (Remeron) 7.5 MG tablet, Take 7.5 mg by mouth Nightly., Disp: , Rfl: Multiple Vitamin (multivitamin) capsule, Take 1 capsule by mouth daily., Disp: , Rfl: naloxone (Narcan) 4 mg/0.1 mL nasal spray, , Disp: , Rfl: oxyCODONE (Roxicodone) 15 MG immediate release tablet, Take 1 tablet (15 mg) by mouth in the morning and 1 tablet (15 mg) at noon and 1 tablet (15 mg) in the evening and 1 tablet (15 mg) before bedtime., Disp: 10 tablet, Rfl: 0 polyethylene glycol, PEG, 3350 (Miralax) 17 g packet, Take 17 g by mouth in the morning and 17 g in the evening., Disp: , Rfl: potassium chloride CR (Klor-Con M20) 20 MEQ ER tablet, 40 mEq daily. (Patient not taking: Reported on 03/07/2025), Disp: , Rfl: pregabalin (Lyrica) 200 MG capsule, Take 1 capsule (200 mg) by mouth 3 times daily for 7 days., Disp: 21 capsule, Rfl: 0 senna-docusate (Cheyenne-Colace) 8.6-50 MG tablet, Take 2 tablets by mouth twice a day., Disp: , Rfl: sodium chloride 0.9 % irrigation solution, Irrigate with as directed. 10 ml every 12 hours before and after medication administration (Patient not taking: Reported on 03/07/2025), Disp: , Rfl: sulfamethoxazole-trimethoprim (Bactrim DS) 800-160 MG tablet, 1 tablet every 12 hours., Disp: , Rfl: tamsulosin (Flomax) 0.4 MG 24 hr capsule, 0.4 mg daily., Disp: , Rfl: [5] No Known Allergies Cosigned by Georgette Bueno MD at 04/22/2025 8:10 PM EDT Associated attestation - Georgette Bueno MD - 04/22/2025 8:10 PM EDT I have seen this patient and examined and agree with the management diagnosis and treatment as noted above. Mike Bueno MD [employer] Phone: 04-22-2025 Note Attestation signed by Georgette Bueno MD at 04/22/2025 8:10 PM I have seen this patient and examined and agree with the management diagnosis and treatment as noted above. Mike Bueno MD Attending History and Physical Admit Date: 04/21/2025 PCP: Tab Dupont CHIEF COMPLAINT: Wound infection Reason for Admission: Osteomyelitis History Obtained From: patient HISTORY OF PRESENT ILLNESS: Anmol is a 64 y.o. male with past medical history below who presents with chief complaint listed above. Patient sent to [facility] ER by [facility]. custodial staff to leave the patient's wounds on his sacrum were worsening and becoming infected. Patient is a paraplegic for the last 4 years after surgical complication with Dr. Ashley at [facility]. ER workup was significant for sodium of 130, lactic acid 1.1, WBCs 12.5, ESR 78, wound culture showing many polymorphonuclear leukocytes per low power field, many gram-negative bacilli, many gram-positive cocci in pairs and chains, few gram-positive cocci in clusters, and few gram-positive bacilli, CT abdomen and pelvis shows findings which are highly suspicious for osteomyelitis of the left inferior pubic ramus and sacrum/coccyx junction with erosive lucency as well as bone in contact with air overlying locules of air and edema and wound present in the soft tissue. Patient denies any pain or feelings of any worsening infectionhowever this is complicated by patient's paraplegic status and inability to feel his wound. Patient denies any fevers, chills, fatigue, malaise, chest pain, chest tightness, shortness of breath, weakness, or any other changes. Patient states he feels like how he normally does but states that the care home felt like his wounds were getting worse and that is why they sent him. Will admit for further evaluation and management. Past Medical History: Medical History[1] Past Surgical History: Surgical History[2] Social History: Social History Socioeconomic History Marital status: Spouse name: Not on file Number of children: Not on file Years of education: Not on file Highest education level: Not on file Occupational History Not on file Tobacco Use Smoking status: Every Day Current packs/day: 0.25 Average packs/day: 0.5 packs/day for 44.5 years (21.4 ttl pk-yrs) Types: Cigarettes Start date: 1977 Smokeless tobacco: Never Vaping Use Vaping status: Every Day Substances: Nicotine, Flavoring Substance and Sexual Activity Alcohol use: No Drug use: No Sexual activity: Not on file Other Topics Concern Not on file Social History Narrative Not on file Social Drivers of Health Financial Resource Strain: Low Risk (04/24/2023) Received from [facility] Overall Financial Resource Strain (CARDIA) Difficulty of Paying Living Expenses: Not hard at all Food Insecurity: No Food Insecurity (02/17/2025) Received from [facility] Hunger Vital Sign Worried About Running Out of Food in the Last Year: Never true Ran Out of Food in the Last Year: Never true Transportation Needs: No Transportation Needs (02/17/2025) Received from [facility] PRAPARE - Transportation Lack of Transportation (Medical): No Lack of Transportation (Non-Medical): No Physical Activity: Not on file Stress: Not on file Social Connections: Not on file Intimate Partner Violence: Not At Risk (05/18/2024) Humiliation, Afraid, Rape, and Kick questionnaire Fear of Current or Ex-Partner: No Emotionally Abused: No Physically Abused: No Sexually Abused: No Housing Stability: Unknown (02/17/2025) Received from [facility] Housing Stability Vital Sign Unable to Pay for Housing in the Last Year: No Number of Times Moved in the Last Year: Not on file Homeless in the Last Year: No Family History: Family History[3] Medications Prior to Admission: Current Medications[4] Allergies: Allergies[5] REVIEW OF SYSTEMS: A focused review of systems was performed and is negative except as stated in above HPI. Vitals: BP 113/62 (BP Location: Right arm, Patient Position: Lying) Pulse 82 Temp 36.7 ?C (98.1 ?F) (Oral) Resp 16 Ht 6' 3" (1.905 m) Wt 200 lb (90.7 kg) SpO2 95% BMI 25.00 kg/m? BMI Classification: Overweight (BMI 25.0-29.9) Pulse Ox: SpO2 Av % Min: 95 % Max: 95 % Supplemental O2: PHYSICAL EXAM: Physical Exam Constitutional: Appearance: He is ill-appearing. HENT: Head: Normocephalic and atraumatic. Nose: Nose normal. Mouth/Throat: Mouth: Mucous membranes are moist. Pharynx: Oropharynx is clear. No oropharyngeal exudate or posterior oropharyngeal erythema. Eyes: General: Right eye: No discharge. Left eye: No discharge. Cardiovascular: Rate and Rhythm: Normal rate a (more content not included)... [facility] 04-22-2025 History and physical note Attending History and Physical Admit Date: 04/21/2025 PCP: Tab Dupont CHIEF COMPLAINT: Wound infection Reason for Admission: Osteomyelitis History Obtained From: patient HISTORY OF PRESENT ILLNESS: Anmol is a 64 y.o. male with past medical history below who presents with chief complaint listed above. Patient sent to [facility] ER by [facility]. custodial staff to leave the patient's wounds on his sacrum were worsening and becoming infected. Patient is a paraplegic for the last 4 years after surgical complication with Dr. Ashley at [facility]. ER workup was significant for sodium of 130, lactic acid 1.1, WBCs 12.5, ESR 78, wound culture showing many polymorphonuclear leukocytes per low power field, many gram-negative bacilli, many gram-positive cocci in pairs and chains, few gram-positive cocci in clusters, and few gram-positive bacilli, CT abdomen and pelvis shows findings which are highly suspicious for osteomyelitis of the left inferior pubic ramus and sacrum/coccyx junction with erosive lucency as well as bone in contact with air overlying locules of air and edema and wound present in the soft tissue. Patient denies any pain or feelings of any worsening infection however this is complicated by patient's paraplegic status and inability to feel his wound. Patient denies any fevers, chills, fatigue, malaise, chest pain, chest tightness, shortness of breath, weakness, or any other changes. Patient states he feels like how he normally does but states that the care home felt like his wounds were getting worse and that is why they sent him. Will admit for further evaluation and management. Past Medical History: Medical History[1] Past Surgical History: Surgical History[2] Social History: Social History Socioeconomic History Marital status: Spouse name: Not on file Number of children: Not on file Years of education: Not on file Highest education level: Not on file Occupational History Not on file Tobacco Use Smoking status: Every Day Current packs/day: 0.25 Average packs/day: 0.5 packs/day for 44.5 years (21.4 ttl pk-yrs) Types: Cigarettes Start date: 1977 Smokeless tobacco: Never Vaping Use Vaping status: Every Day Substances: Nicotine, Flavoring Substance and Sexual Activity Alcohol use: No Drug use: No Sexual activity: Not on file Other Topics Concern Not on file Social History Narrative Not on file Social Drivers of Health Financial Resource Strain: Low Risk (04/24/2023) Received from [facility] Overall Financial Resource Strain (CARDIA) Difficulty of Paying Living Expenses: Not hard at all Food Insecurity: No Food Insecurity (02/17/2025) Received from [facility] Hunger Vital Sign Worried About Running Out of Food in the Last Year: Never true Ran Out of Food in the Last Year: Never true Transportation Needs: No Transportation Needs (02/17/2025) Received from [facility] PRAPARE - Transportation Lack of Transportation (Medical): No Lack of Transportation (Non-Medical): No Physical Activity: Not on file Stress: Not on file Social Connections: Not on file Intimate Partner Violence: Not At Risk (05/18/2024) Humiliation, Afraid, Rape, and Kick questionnaire Fear of Current or Ex-Partner: No Emotionally Abused: No Physically Abused: No Sexually Abused: No Housing Stability: Unknown (02/17/2025) Received from [facility] Housing Stability Vital Sign Unable to Pay for Housing in the Last Year: No Number of Times Moved in the Last Year: Not on file Homeless in the Last Year: No Family History: Family History[3] Medications Prior to Admission: Current Medications[4] Allergies: Allergies[5] REVIEW OF SYSTEMS: A focused review of systems was performed and is negative except as stated in above HPI. Vitals: BP 113/62 (BP Location: Right arm, Patient Position: Lying) Pulse 82 Temp 36.7 C (98.1 F) (Oral) Resp 16 Ht 6' 3" (1.905 m) Wt 200 lb (90.7 kg) SpO2 95% BMI 25.00 kg/m BMI Classification: Overweight (BMI 25.0-29.9) Pulse Ox: SpO2 Av % Min: 95 % Max: 95 % Supplemental O2: PHYSICAL EXAM: Physical Exam Constitutional: Appearance: He is ill-appearing. HENT: Head: Normocephalic and atraumatic. Nose: Nose normal. Mouth/Throat: Mouth: Mucous membranes are moist. Pharynx: Oropharynx is clear. No oropharyngeal exudate or posterior oropharyngeal erythema. Eyes: General: Right eye: No discharge. Left eye: No discharge. Cardiovascular: Rate and Rhythm: Normal rate and regular rhythm. Pulses: Normal pulses. Pulmonary: Effort: Pulmonary effort is normal. Breath sounds: Normal breath sounds. Abdominal: General: Bowel sounds are normal. Palpations: Abdomen is soft. Skin: General: Skin is warm and dry. Findings: Lesion present. Comments: Sacral wound Neurological: Mental Status: He is alert and oriented to person, place, and time. Mental status is at baseline. Sensory: Sensory deficit present. Motor: Weakness present. Coordination: Coordination abnormal. Gait: Gait abnormal. Comments: Paraplegic for 4 years Psychiatric: Mood and Affect: Mood normal. Behavior: Behavior normal. Thought Content: Thought content normal. Judgment: Judgment normal. DATA: CBC: Recent Labs 04/21/252256 WBC 12.5* RBC 4.03* HGB 11.7* HCT 35.6* MCV 88.3 RDW 14.9 PLT 372 BMP: Recent Labs 04/21/252256 NA 130* K 4.3 CL 99 CO2 21* BUN 10 CREATININE 0.65* GLUCOSE 202* CALCIUM 8.5* ANIONGAP 10 LIVER PROFILE: Recent Labs 04/21/252256 AST 13 ALT 6 BILITOT 0.5 ALKPHOS 116 PROT 7.6 PT/INR: No results for input(s): "PROTIME", "INR" in the last 72 hours. CARDIAC ENZYMES: No results for input(s): "TROPONINI" in the last 72 hours. Procalcitonin: No results found for: "PROCAL" Urine Culture: Results for orders placed or performed during the hospital encounter of 05/17/24 Urine culture Collection Time: 05/18/24 12:16 AM Specimen: Urine, Clean Catch Result Value Ref Range Urine Culture >100,000 CFU/mL Proteus mirabilis (A) Susceptibility Proteus mirabilis - BROTH MICRODILUTION Ampicillin Resistant Ampicillin / Sulbactam Resistant Aztreonam <=1 Susceptible ug/ml Cefazolin Resistant Cefepime Resistant Ceftriaxone 2 Intermediate ug/ml Ciprofloxacin >=4 Resistant ug/ml Gentamicin <=1 Susceptible ug/ml Meropenem <=0.25 Susceptible ug/ml Nitrofurantoin Resistant Piperacillin / Tazobactam Resistant Trimethoprim / Sulfamethoxazole 160 Resistant ug/ml COVID-19 PCR: No results for input(s): "COVID19" in the last 72 hours. I reviewed: [x] laboratory results [x] radiographic results At the time of today's encounter. Pt was advised of the results. Data: (CAT1) Reviewed 3 or more notes from different specialty or health system (each=1). (CAT1) Reviewed 3 or more labs/studies ordered by another provider not previously counted (each=1, panels count as 1). (CAT1) Ordered 3 or more new labs and/or studies (each=1, panels count as 1). (CAT3) Mgmt of the patient was discussed with Dr. Bueno, who stated, in summary: large sacral and gluteal wound suspicious for osteomyelitis. On Vanco and cefepime will most likely need ID consult (LOW: 2x CAT1 or independent historian MOD: 3x CAT1 or 1x CAT3 EXTENSIVE: 3x CAT1 and 1x CAT3) Assessment Discussed management with the ED provider and agree with hospitalization. Acute, acute on chronic, unstable/uncontrolled chronic problems/diagnoses: Sacral wounds Wound infection Stable chronic problems affecting care, new non-acute diagnoses: History of paraplegia since 2020 CAD Depression Iron deficiency anemia Type 2 diabetes Hypotension Chronic pain Neuropathy BPH GERD Constipation Plan As a result of the above findings & factors, the following mgmt was pursued: - Consult orthopedics for possible osteomyelitis - Consult infectious disease for wound infection - Patient currently on IV Vanco and cefepime - Pharmacy to dose vancomycin - Hold Eliquis pending orthopedic evaluation for possible intervention - Wound care consult - Telemetry monitoring - am labs, replace lytes prn - PT/OT/CM/SW - delirium precautions: increase activity - DVT prophylaxis: SCDs and encourage ambulation Complexity: Acute illness or injury posing a threat to life or body function (HIGH). Risk: Admission to hospital-level care was considered or occurred (HIGH). Advance Directive: Prior Anticipated Discharge - Date -04/25 - Location - Skilled Facility - Pending the following -orthopedic and infectious disease consultations Total time spent (which include face to face and non face to face encounters) : 60 minutes. Extended Emergency Contact Information Primary Emergency Contact: Ronald Reynolds Mobile Relation: Sibling Secondary Emergency Contact: SUMI REYNOLDS Mobile Relation: Daughter [employer] Anmol Reynolds : 1960 Primary Care Physician: Tab Dupont The patient and/or family/surrogate voluntarily agreed to participate in ACP services. Patient s cognitive capacity: Alert and oriented x 4 Code Status: [X] [FULL CODE - Continue all advanced life support: CPR,intubation,invasive procedures] [_] [DNR-CCA - DO NOT do CPR, intubation] [_] [DNR-SUPPORT TEAM ASSOC - Comfort care only] [_] DNR form [was/was not] signed Summary of discussion: Patient wishes to be a full code at this time I answered all the patient/family questions that I could within the range and scope of the current medical situation. We discussed the medical conditions, risks, benefits, outcomes, and goals of care at this time for the patient's medical issues at hand in the face of the patient's chronic issues and current presentation. Total time spent: 5 minutes were spent discussing the patient's resuscitation status, advance care planning, and end of life care, with patient and/or family/surrogate. Alberto Boogie, [facility] Division of Hospitalist Medicine [1] Past Medical History: Diagnosis Date Abnormal posture Abscess, perineum Anemia BPH (benign prostatic hyperplasia) Chronic back pain Hematuria Hip sprain Hyperlipidemia Hypertension Major depressive disorder, single episode, unspecified MRSA (methicillin resistant staph aureus) culture positive spine 2021 Muscle wasting and atrophy, not elsewhere classified, left lower leg Muscle weakness (generalized) Neuropathy Obstructive and reflux uropathy, unspecified Osteoarthritis Other abnormalities of gait and mobility Other reduced mobility Paraplegia (HCC) Sciatica Spinal stenosis of lumbar region with neurogenic claudication Type 2 diabetes mellitus without complication (CMS/HCC) (HCC) Urinary calculus, unspecified UTI (urinary tract infection) [2] Past Surgical History: Procedure Laterality Date ANKLE SURGERY Right He has a titanium plate to the right ankle KNEE SURGERY Left ACL KNEE SURGERY Left removal of screw LAMINECTOMY Left 10/24/2020 LEFT BILATERAL L2-3-4-5 DECOMPRESSION performed by Opal Vigil MD at [facility] OR ORTHOPEDIC SURGERY Right removal of hardware ankle US PLACE URETAL STENT PERC PRE-EXIST TRACT S&I (HISTORICAL) Bilateral 04/14/2024 Dr. Patel/Bashir [3] No family history on file. [4] Current Facility-Administered Medications: vancomycin IVPB 1500 mg in 250 mL NS (premix), 1,500 mg, IntraVENous, Once, Chele León MD, Last Rate: 125 mL/hr at 04/22/25 0027, 1,500 mg at 04/22/25 002 Current Outpatient Medications: acetaminophen (Tylenol) 325 MG tablet, Take 650 mg by mouth every 6 hours as needed. For elevated temp and/or pain. Do not exceed 3 grams in 24 hour period., Disp: , Rfl: acetic acid 0.25 % irrigation, , Disp: , Rfl: alogliptin (Nesina) 25 MG tablet, daily. (Patient not taking: Reported on 03/07/2025), Disp: , Rfl: apixaban (Eliquis) 5 MG tablet, Take 5 mg by mouth twice a day., Disp: , Rfl: aspirin 81 MG EC tablet, Take 81 mg by mouth daily. (Patient not taking: Reported on 03/07/2025), Disp: , Rfl: bisacodyl (Dulcolax) 5 MG EC tablet, Take 5 mg by mouth Daily as needed for constipation. Do not crush, chew, or split., Disp: , Rfl: bisacodyl (Dulcolax) 5 mg split suppository, Insert into the rectum Daily as needed., Disp: , Rfl: calcium carbonate (Tums) 500 MG chewable tablet, 1,000 mg every 8 hours as needed for indigestion or heartburn., Disp: , Rfl: cyclobenzaprine (Flexeril) 10 MG tablet, Take 10 mg by mouth 3 times daily as needed for muscle spasms., Disp: , Rfl: docusate sodium (Colace) 100 MG tablet, Take 100 mg by mouth 2 times daily. (Patient not taking: Reported on 03/07/2025), Disp: , Rfl: DULoxetine (Cymbalta) [address] capsule, Take 30 mg by mouth daily., Disp: , Rfl: ferrous sulfate 325 (65 Fe) MG tablet, Take 325 mg by mouth daily (with breakfast)., Disp: , Rfl: Hypromellose (Pure & Gentle Lubricant) 0.3 % solution, Administer 1 drop into affected eye(s) if needed. (Patient not taking: Reported on 03/07/2025), Disp: , Rfl: insulin glargine (Lantus) 100 UNIT/ML pen, Inject 45 Units under the skin every morning., Disp: , Rfl: Insulin Lispro (Humalog) 100 UNIT/ML solution injection, Inject 0-28 Units under the skin. 0-160=0 units; 161-200=14 units, 201-250=18 units, 251-300=20 units 301-350=22 units, 351-400=28 units, 401 or higher give 28 units and call physician., Disp: , Rfl: linaGLIPtin (Tradjenta) 5 MG tablet, 5 mg daily., Disp: , Rfl: Magnesium Hydroxide (MILK OF MAGNESIA PO), Take 30 mL by mouth Daily as needed. (Patient not taking: Reported on 03/07/2025), Disp: , Rfl: midodrine (Proamatine) 10 MG tablet, Take 10 mg by mouth 3 times a day., Disp: , Rfl: mirtazapine (Remeron) 7.5 MG tablet, Take 7.5 mg by mouth Nightly., Disp: , Rfl: Multiple Vitamin (multivitamin) capsule, Take 1 capsule by mouth daily., Disp: , Rfl: naloxone (Narcan) 4 mg/0.1 mL nasal spray, , Disp: , Rfl: oxyCODONE (Roxicodone) 15 MG immediate release tablet, Take 1 tablet (15 mg) by mouth in the morning and 1 tablet (15 mg) at noon and 1 tablet (15 mg) in the evening and 1 tablet (15 mg) before bedtime., Disp: 10 tablet, Rfl: 0 polyethylene glycol, PEG, 3350 (Miralax) 17 g packet, Take 17 g by mouth in the morning and 17 g in the evening., Disp: , Rfl: potassium chloride CR (Klor-Con M20) 20 MEQ ER tablet, 40 mEq daily. (Patient not taking: Reported on 03/07/2025), Disp: , Rfl: pregabalin (Lyrica) 200 MG capsule, Take 1 capsule (200 mg) by mouth 3 times daily for 7 days., Disp: 21 capsule, Rfl: 0 senna-docusate (Cheyenne-Colace) 8.6-50 MG tablet, Take 2 tablets by mouth twice a day., Disp: , Rfl: sodium chloride 0.9 % irrigation solution, Irrigate with as directed. 10 ml every 12 hours before and after medication administration (Patient not taking: Reported on 03/07/2025), Disp: , Rfl: sulfamethoxazole-trimethoprim (Bactrim DS) 800-160 MG tablet, 1 tablet every 12 hours., Disp: , Rfl: tamsulosin (Flomax) 0.4 MG 24 hr capsule, 0.4 mg daily., Disp: , Rfl: [5] No Known Allergies Cosigned by Georgette Bueno MD at 04/22/2025 8:10 PM EDT Associated attestation - Georgette Bueno MD - 04/22/2025 8:10 PM EDT I have seen this patient and examined and agree with the management diagnosis and treatment as noted above. Mike Bueno MD documented in this encounter [facility] 04-21-2025 Emergency department Note Placed new meplix pads on open wounds on sacrum. Pictures updated in pt's chart. [facility] 04-21-2025 Emergency department Note Placed new meplix pads on open wounds on sacrum. Pictures updated in pt's chart. EMERGENCY DEPARTMENT ENCOUNTER Pt Name: Anmol Reynolds Birthdate 1960 Date of evaluation: 04/21/2025 ED Provider: Chele León MD CHIEF COMPLAINT Chief Complaint Patient presents with Wound Infection Per EMS pt was sent here from the [place] for wound infections. Pt has two wound on his sacrum - one at the top of sacrum and one at the bottom of the buttocks. Denies any fever/ CP/FEVER/ SOB. Pt is paralysis. HISTORY OF PRESENT ILLNESS (Location/Symptom, Timing/Onset, Context/Setting, Quality, Duration, Modifying Factors, Severity) Note limiting factors. I wore appropriate PPE for the entirety of this encounter. HPI Anmol Reynolds is a 64 y.o. adult who presents to the emergency department with chief complaint of wound infections. Patient has a history of paraplegia paralyzed from the waist down due to spinal cord injury from surgery. Patient with a history of Sacrum wound and right buttocks wound has been getting worse over time per nursing facility. Patient denies fevers, chills, chest pain, shortness of breath, nausea, vomiting. EMS reported that blood cultures were obtained at dressing site which showed growth. Nursing Notes were reviewed. Limitations to history: None Outside historians: EMS REVIEW OF SYSTEMS Review of Systems Pertinent positives and negatives as per HPI. PAST MEDICAL HISTORY Medical History[1] SURGICAL HISTORY Surgical History[2] CURRENT MEDICATIONS Previous Medications ACETAMINOPHEN (TYLENOL) 325 MG TABLET Take 650 mg by mouth every 6 hours as needed. For elevated temp and/or pain. Do not exceed 3 grams in 24 hour period. ACETIC ACID 0.25 % IRRIGATION ALOGLIPTIN (NESINA) 25 MG TABLET daily. APIXABAN (ELIQUIS) 5 MG TABLET Take 5 mg by mouth twice a day. ASPIRIN 81 MG EC TABLET Take 81 mg by mouth daily. BISACODYL (DULCOLAX) 5 MG EC TABLET Take 5 mg by mouth Daily as needed for constipation. Do not crush, chew, or split. BISACODYL (DULCOLAX) 5 MG SPLIT SUPPOSITORY Insert into the rectum Daily as needed. CALCIUM CARBONATE (TUMS) 500 MG CHEWABLE TABLET 1,000 mg every 8 hours as needed for indigestion or heartburn. CYCLOBENZAPRINE (FLEXERIL) 10 MG TABLET Take 10 mg by mouth 3 times daily as needed for muscle spasms. DOCUSATE SODIUM (COLACE) 100 MG TABLET Take 100 mg by mouth 2 times daily. DULOXETINE (CYMBALTA) [address] CAPSULE Take 30 mg by mouth daily. FERROUS SULFATE 325 (65 FE) MG TABLET Take 325 mg by mouth daily (with breakfast). HYPROMELLOSE (PURE & GENTLE LUBRICANT) 0.3 % SOLUTION Administer 1 drop into affected eye(s) if needed. INSULIN GLARGINE (LANTUS) 100 UNIT/ML PEN Inject 45 Units under the skin every morning. INSULIN LISPRO (HUMALOG) 100 UNIT/ML SOLUTION INJECTION Inject 0-28 Units under the skin. 0-160=0 units; 161-200=14 units, 201-250=18 units, 251-300=20 units 301-350=22 units, 351-400=28 units, 401 or higher give 28 units and call physician. LINAGLIPTIN (TRADJENTA) 5 MG TABLET 5 mg daily. MAGNESIUM HYDROXIDE (MILK OF MAGNESIA PO) Take 30 mL by mouth Daily as needed. MIDODRINE (PROAMATINE) 10 MG TABLET Take 10 mg by mouth 3 times a day. MIRTAZAPINE (REMERON) 7.5 MG TABLET Take 7.5 mg by mouth Nightly. MULTIPLE VITAMIN (MULTIVITAMIN) CAPSULE Take 1 capsule by mouth daily. NALOXONE (NARCAN) 4 MG/0.1 ML NASAL SPRAY OXYCODONE (ROXICODONE) 15 MG IMMEDIATE RELEASE TABLET Take 1 tablet (15 mg) by mouth in the morning and 1 tablet (15 mg) at noon and 1 tablet (15 mg) in the evening and 1 tablet (15 mg) before bedtime. POLYETHYLENE GLYCOL, PEG, 3350 (MIRALAX) 17 G PACKET Take 17 g by mouth in the morning and 17 g in the evening. POTASSIUM CHLORIDE CR (KLOR-CON M20) 20 MEQ ER TABLET 40 mEq daily. PREGABALIN (LYRICA) 200 MG CAPSULE Take 1 capsule (200 mg) by mouth 3 times daily for 7 days. SENNA-DOCUSATE (CHEYENNE-COLACE) 8.6-50 MG TABLET Take 2 tablets by mouth twice a day. SODIUM CHLORIDE 0.9 % IRRIGATION SOLUTION Irrigate with as directed. 10 ml every 12 hours before and after medication administration SULFAMETHOXAZOLE-TRIMETHOPRIM (BACTRIM DS) 800-160 MG TABLET 1 tablet every 12 hours. TAMSULOSIN (FLOMAX) 0.4 MG 24 HR CAPSULE 0.4 mg daily. ALLERGIES Patient has no known allergies. FAMILY HISTORY Family History[3] SOCIAL HISTORY Social History[4] SCREENINGS Beatrice Coma Scale Best Eye Response: Spontaneous Best Verbal Response: Oriented Best Motor Response: Follows commands Dumas Coma Scale Score: 15 PHYSICAL EXAM ED Triage Vitals [04/21/25 2228] Temp Heart Rate Resp BP 36.7 C (98.1 F) 82 16 113/62 SpO2 Temp Source Heart Rate Source Patient Position 95 % Oral Monitor Lying BP Location FiO2 (%) Right arm -- Physical Exam Vitals and nursing note reviewed. Constitutional: General: He is not in acute distress. Appearance: Normal appearance. He is well-developed. He is not ill-appearing. HENT: Head: Normocephalic and atraumatic. Eyes: Extraocular Movements: Extraocular movements intact. Conjunctiva/sclera: Conjunctivae normal. Cardiovascular: Rate and Rhythm: Normal rate and regular rhythm. Pulses: Normal pulses. Heart sounds: Normal heart sounds. Pulmonary: Effort: Pulmonary effort is normal. No respiratory distress. Breath sounds: Normal breath sounds. No wheezing, rhonchi or rales. Abdominal: Palpations: Abdomen is soft. Tenderness: There is no abdominal tenderness. Musculoskeletal: Cervical back: Normal range of motion and neck supple. Skin: Capillary Refill: Capillary refill takes less than 2 seconds. Comments: See media tab for pictures of wounds. Top of sacrum wound, pink well healing tissue without drainage. Right buttocks wound, deep, yellow/green tissue with purulent drainage, foul smelling Neurological: Mental Status: He is alert and oriented to person, place, and time. Psychiatric: Mood and Affect: Mood normal. DIAGNOSTIC RESULTS RADIOLOGY (Per Emergency Physician): Interpretation per the Radiologist below, if available at the time of this note: CT pelvis w IV contrast Final Result 1. Findings are highly suspicious for osteomyelitis of the left inferior pubic ramus and sacrum/coccyx junction with erosive lucency as well as bone in contact with air. Overlying locules of air and edema and wound present in the soft tissue. 2. Bladder wall thickening, consider cystitis. 3. Additional findings, as above. Report Dictated on Electronically Signed By: Geneva Lunsford MD Electronically Signed Date/Time: 04/22/2025 12:31 AM EDT ED BEDSIDE ULTRASOUND: Performed by ED Physician - none LABS: Labs Reviewed CULTURE, AEROBIC BACTERIA WITH GRAM STAIN - Abnormal Result Value Culture Culture in progress Gram Stain Result (*) Value: Many Polymorphonuclear leukocytes per low power field Gram Stain Result Many Gram negative bacilli (*) Gram Stain Result Many Gram positive cocci in pairs and chains (*) Gram Stain Result Few Gram positive cocci in clusters (*) Gram Stain Result Few Gram positive bacilli (*) CBC WITH AUTO DIFFERENTIAL - Abnormal Auto WBC 12.5 (*) RBC 4.03 (*) Hemoglobin 11.7 (*) Hematocrit 35.6 (*) MCV 88.3 MCH 29.0 MCHC 32.9 RDW 14.9 Platelets 372 MPV 9.8 nRBC 0.0 Neutrophils Relative 70.7 Lymphocytes Relative 18.1 Monocytes Relative 7.8 Eosinophils Relative 2.3 Basophils Relative 0.6 Immature Grans % 0.5 Neutrophils Absolute 8.8 (*) Lymphocytes Absolute 2.3 Monocytes Absolute 1.0 (*) Eosinophils Absolute 0.3 Basophils Absolute 0.1 Immature Grans Absolute 0.1 (*) COMPREHENSIVE METABOLIC PANEL - Abnormal SODIUM 130 (*) POTASSIUM 4.3 CHLORIDE 99 CARBON DIOXIDE 21 (*) ANION GAP 10 UREA NITROGEN 10 CREATININE 0.65 (*) GLUCOSE 202 (*) CALCIUM 8.5 (*) AST (SGOT) 13 ALT 6 ALKALINE PHOSPHATASE 116 ALBUMIN 2.3 (*) BILIRUBIN, TOTAL 0.5 TOTAL PROTEIN 7.6 eGFR >90.0 SEDIMENTATION RATE, AUTOMATED - Abnormal Sed Rate 78 (*) BLOOD CULTURE - Normal Blood Culture Blood culture incubation started Narrative: Blood Collection Site: Left PICC Purple Lumen BLOOD CULTURE - Normal Blood Culture Blood culture incubation started Narrative: Blood Collection Site: Right Forearm LACTIC ACID WITH REFLEX - Normal LACTIC ACID 1.1 AEROBIC AND ANAEROBIC CULTURE WITH STAIN Narrative: The following orders were created for panel order Aerobic and Anaerobic Culture with Stain. Procedure Abnormality Status --------- ------ Culture, Aerobic Bacteri...[[id number]] Abnormal Preliminary result Anaerobic culture[[id number]] In process Please view results for these tests on the individual orders. CULTURE ANAEROBIC All other labs were within normal range or not returned as of this dictation. EMERGENCY DEPARTMENT COURSE and DIFFERENTIAL DIAGNOSIS/MDM: Vitals: Vitals: 04/21/25 2228 BP: 113/62 BP Location: Right arm Patient Position: Lying Pulse: 82 Resp: 16 Temp: 36.7 C (98.1 F) TempSrc: Oral SpO2: 95% Weight: 90.7 kg (200 lb) Height: 1.905 m (6' 3") The patient is presenting with wound infections. Eitel signs are within normal limits the patient is normotensive, nontachycardic, afebrile. Differential include osteomyelitis, deep wound sacral infection, abscess. Will empirically start patient on IV 2000 mg cefepime, IV 5000 mg of vancomycin, 1 L NS bolus for fluid management. Will obtain blood cultures, wound culture, ESR, lactic acid, CMP, CBC for basic labs and look for leukocytosis and obtain CT pelvis with IV contrast to assess for infection. Plan for admission for wound care and IV antibiotics. Reassessment: Lab work concerning for leukocytosis 12.5, ESR elevated 78, lactic acid was normal at 1.1. CT pelvis concerning for cystitis, osteomyelitis of inferior left pubic ramus. Patient already received IV vancomycin, IV cefepime for coverage. [facility] hospitalist was consulted for admission for osteomyelitis and the patient was accepted for further workup and treatment. Medications vancomycin IVPB 1500 mg in 250 mL NS (premix) (1,500 mg IntraVENous New Bag 04/22/2526) sodium chloride 0.9 % bolus 1,000 mL (0 mL IntraVENous Stopped 04/22/25 0023) cefepime (Maxipime) 2,000 mg in sodium chloride 0.9 % 50 mL IVPB Mini-Bag Plus (0 mg IntraVENous Stopped 04/21/258) iopamidol (Isovue-370) 76 % injection 75 mL (75 mL IntraVENous Given 04/22/257) HYDROmorphone (Dilaudid) injection 0.5 mg (0.5 mg IntraVENous Given 04/22/25 0142) REVAL: CONSULTS: None PROCEDURES: Unless otherwise noted below, none FINAL IMPRESSION 1. Other acute osteomyelitis, other site (HCC) DISPOSITION Admit 04/22/2025 01:32:25 AM PATIENT REFERRED TO: No follow-up provider specified. DISCHARGE MEDICATIONS: New Prescriptions No medications on file (Comment: Please note this report has been produced using speech recognition software and may contain errors related to that system including errors in grammar, punctuation, and spelling, as well as words and phrases that may be inappropriate. If there are any questions or concerns please feel free to contact the dictating provider for clarification.) Chele León MD (electronically signed) Emergency Medicine Provider [1] Past Medical History: Diagnosis Date Abnormal posture Abscess, perineum Anemia BPH (benign prostatic hyperplasia) Chronic back pain Hematuria Hip sprain Hyperlipidemia Hypertension Major depressive disorder, single episode, unspecified MRSA (methicillin resistant staph aureus) culture positive spine 2021 Muscle wasting and atrophy, not elsewhere classified, left lower leg Muscle weakness (generalized) Neuropathy Obstructive and reflux uropathy, unspecified Osteoarthritis Other abnormalities of gait and mobility Other reduced mobility Paraplegia (HCC) Sciatica Spinal stenosis of lumbar region with neurogenic claudication Type 2 diabetes mellitus without complication (CMS/HCC) (HCC) Urinary calculus, unspecified UTI (urinary tract infection) [2] Past Surgical History: Procedure Laterality Date ANKLE SURGERY Right He has a titanium plate to the right ankle KNEE SURGERY Left ACL KNEE SURGERY Left removal of screw LAMINECTOMY Left 10/24/2020 LEFT BILATERAL L2-3-4-5 DECOMPRESSION performed by Opal Vigil MD at [facility] OR ORTHOPEDIC SURGERY Right removal of hardware ankle US PLACE URETAL STENT PERC PRE-EXIST TRACT S&I (HISTORICAL) Bilateral 04/14/2024 Dr. Patel/Bashir [3] No family history on file. [4] Social History Socioeconomic History Marital status: Tobacco Use Smoking status: Every Day Current packs/day: 0.25 Average packs/day: 0.5 packs/day for 44.5 years (21.4 ttl pk-yrs) Types: Cigarettes Start date: 1977 Smokeless tobacco: Never Vaping Use Vaping status: Every Day Substances: Nicotine, Flavoring Substance and Sexual Activity Alcohol use: No Drug use: No Social Drivers of Health Financial Resource Strain: Low Risk (04/24/2023) Received from [facility] Overall Financial Resource Strain (CARDIA) Difficulty of Paying Living Expenses: Not hard at all Food Insecurity: No Food Insecurity (02/17/2025) Received from [facility] Hunger Vital Sign Worried About Running Out of Food in the Last Year: Never true Ran Out of Food in the Last Year: Never true Transportation Needs: No Transportation Needs (02/17/2025) Received from [facility] PRAPARE - Transportation Lack of Transportation (Medical): No Lack of Transportation (Non-Medical): No Intimate Partner Violence: Not At Risk (05/18/2024) Humiliation, Afraid, Rape, and Kick questionnaire Fear of Current or Ex-Partner: No Emotionally Abused: No Physically Abused: No Sexually Abused: No Housing Stability: Unknown (02/17/2025) Received from [facility] Housing Stability Vital Sign Unable to Pay for Housing in the Last Year: No Homeless in the Last Year: No Chele León MD Resident 04/22/25 0219 Cosigned by Brad Campos MD at 04/22/2025 2:22 AM EDT documented in this encounter [facility] 04-21-2025 Physician Emergency department Note EMERGENCY DEPARTMENT ENCOUNTER Pt Name: Anmol Reynolds Birthdate 1960 Date of evaluation: 04/21/2025 ED Provider: Chele León MD CHIEF COMPLAINT Chief Complaint Patient presents with Wound Infection Per EMS pt was sent here from the [place] for wound infections. Pt has two wound on his sacrum - one at the top of sacrum and one at the bottom of the buttocks. Denies any fever/ CP/FEVER/ SOB. Pt is paralysis. HISTORY OF PRESENT ILLNESS (Location/Symptom, Timing/Onset, Context/Setting, Quality, Duration, Modifying Factors, Severity) Note limiting factors. I wore appropriate PPE for the entirety of this encounter. HPI Anmol Reynolds is a 64 y.o. adult who presents to the emergency department with chief complaint of wound infections. Patient has a history of paraplegia paralyzed from the waist down due to spinal cord injury from surgery. Patient with a history of Sacrum wound and right buttocks wound has been getting worse over time per nursing facility. Patient denies fevers, chills, chest pain, shortness of breath, nausea, vomiting. EMS reported that blood cultures were obtained at dressing site which showed growth. Nursing Notes were reviewed. Limitations to history: None Outside historians: EMS REVIEW OF SYSTEMS Review of Systems Pertinent positives and negatives as per HPI. PAST MEDICAL HISTORY Medical History[1] SURGICAL HISTORY Surgical History[2] CURRENT MEDICATIONS Previous Medications ACETAMINOPHEN (TYLENOL) 325 MG TABLET Take 650 mg by mouth every 6 hours as needed. For elevated temp and/or pain. Do not exceed 3 grams in 24 hour period. ACETIC ACID 0.25 % IRRIGATION ALOGLIPTIN (NESINA) 25 MG TABLET daily. APIXABAN (ELIQUIS) 5 MG TABLET Take 5 mg by mouth twice a day. ASPIRIN 81 MG EC TABLET Take 81 mg by mouth daily. BISACODYL (DULCOLAX) 5 MG EC TABLET Take 5 mg by mouth Daily as needed for constipation. Do not crush, chew, or split. BISACODYL (DULCOLAX) 5 MG SPLIT SUPPOSITORY Insert into the rectum Daily as needed. CALCIUM CARBONATE (TUMS) 500 MG CHEWABLE TABLET 1,000 mg every 8 hours as needed for indigestion or heartburn. CYCLOBENZAPRINE (FLEXERIL) 10 MG TABLET Take 10 mg by mouth 3 times daily as needed for muscle spasms. DOCUSATE SODIUM (COLACE) 100 MG TABLET Take 100 mg by mouth 2 times daily. DULOXETINE (CYMBALTA) [address] CAPSULE Take 30 mg by mouth daily. FERROUS SULFATE 325 (65 FE) MG TABLET Take 325 mg by mouth daily (with breakfast). HYPROMELLOSE (PURE & GENTLE LUBRICANT) 0.3 % SOLUTION Administer 1 drop into affected eye(s) if needed. INSULIN GLARGINE (LANTUS) 100 UNIT/ML PEN Inject 45 Units under the skin every morning. INSULIN LISPRO (HUMALOG) 100 UNIT/ML SOLUTION INJECTION Inject 0-28 Units under the skin. 0-160=0 units; 161-200=14 units, 201-250=18 units, 251-300=20 units 301-350=22 units, 351-400=28 units, 401 or higher give 28 units and call physician. LINAGLIPTIN (TRADJENTA) 5 MG TABLET 5 mg daily. MAGNESIUM HYDROXIDE (MILK OF MAGNESIA PO) Take 30 mL by mouth Daily as needed. MIDODRINE (PROAMATINE) 10 MG TABLET Take 10 mg by mouth 3 times a day. MIRTAZAPINE (REMERON) 7.5 MG TABLET Take 7.5 mg by mouth Nightly. MULTIPLE VITAMIN (MULTIVITAMIN) CAPSULE Take 1 capsule by mouth daily. NALOXONE (NARCAN) 4 MG/0.1 ML NASAL SPRAY OXYCODONE (ROXICODONE) 15 MG IMMEDIATE RELEASE TABLET Take 1 tablet (15 mg) by mouth in the morning and 1 tablet (15 mg) at noon and 1 tablet (15 mg) in the evening and 1 tablet (15 mg) before bedtime. POLYETHYLENE GLYCOL, PEG, 3350 (MIRALAX) 17 G PACKET Take 17 g by mouth in the morning and 17 g in the evening. POTASSIUM CHLORIDE CR (KLOR-CON M20) 20 MEQ ER TABLET 40 mEq daily. PREGABALIN (LYRICA) 200 MG CAPSULE Take 1 capsule (200 mg) by mouth 3 times daily for 7 days. SENNA-DOCUSATE (CHEYENNE-COLACE) 8.6-50 MG TABLET Take 2 tablets by mouth twice a day. SODIUM CHLORIDE 0.9 % IRRIGATION SOLUTION Irrigate with as directed. 10 ml every 12 hours before and after medication administration SULFAMETHOXAZOLE-TRIMETHOPRIM (BACTRIM DS) 800-160 MG TABLET 1 tablet every 12 hours. TAMSULOSIN (FLOMAX) 0.4 MG 24 HR CAPSULE 0.4 mg daily. ALLERGIES Patient has no known allergies. FAMILY HISTORY Family History[3] SOCIAL HISTORY Social History[4] SCREENINGS Beatrice Coma Scale Best Eye Response: Spontaneous Best Verbal Response: Oriented Best Motor Response: Follows commands Beatrice Coma Scale Score: 15 PHYSICAL EXAM ED Triage Vitals [04/21/25 2228] Temp Heart Rate Resp BP 36.7 C (98.1 F) 82 16 113/62 SpO2 Temp Source Heart Rate Source Patient Position 95 % Oral Monitor Lying BP Location FiO2 (%) Right arm -- Physical Exam Vitals and nursing note reviewed. Constitutional: General: He is not in acute distress. Appearance: Normal appearance. He is well-developed. He is not ill-appearing. HENT: Head: Normocephalic and atraumatic. Eyes: Extraocular Movements: Extraocular movements intact. Conjunctiva/sclera: Conjunctivae normal. Cardiovascular: Rate and Rhythm: Normal rate and regular rhythm. Pulses: Normal pulses. Heart sounds: Normal heart sounds. Pulmonary: Effort: Pulmonary effort is normal. No respiratory distress. Breath sounds: Normal breath sounds. No wheezing, rhonchi or rales. Abdominal: Palpations: Abdomen is soft. Tenderness: There is no abdominal tenderness. Musculoskeletal: Cervical back: Normal range of motion and neck supple. Skin: Capillary Refill: Capillary refill takes less than 2 seconds. Comments: See media tab for pictures of wounds. Top of sacrum wound, pink well healing tissue without drainage. Right buttocks wound, deep, yellow/green tissue with purulent drainage, foul smelling Neurological: Mental Status: He is alert and oriented to person, place, and time. Psychiatric: Mood and Affect: Mood normal. DIAGNOSTIC RESULTS RADIOLOGY (Per Emergency Physician): Interpretation per the Radiologist below, if available at the time of this note: CT pelvis w IV contrast Final Result 1. Findings are highly suspicious for osteomyelitis of the left inferior pubic ramus and sacrum/coccyx junction with erosive lucency as well as bone in contact with air. Overlying locules of air and edema and wound present in the soft tissue. 2. Bladder wall thickening, consider cystitis. 3. Additional findings, as above. Report Dictated on Electronically Signed By: Geneva Lunsford MD Electronically Signed Date/Time: 04/22/2025 12:31 AM EDT ED BEDSIDE ULTRASOUND: Performed by ED Physician - none LABS: Labs Reviewed CULTURE, AEROBIC BACTERIA WITH GRAM STAIN - Abnormal Result Value Culture Culture in progress Gram Stain Result (*) Value: Many Polymorphonuclear leukocytes per low power field Gram Stain Result Many Gram negative bacilli (*) Gram Stain Result Many Gram positive cocci in pairs and chains (*) Gram Stain Result Few Gram positive cocci in clusters (*) Gram Stain Result Few Gram positive bacilli (*) CBC WITH AUTO DIFFERENTIAL - Abnormal Auto WBC 12.5 (*) RBC 4.03 (*) Hemoglobin 11.7 (*) Hematocrit 35.6 (*) MCV 88.3 MCH 29.0 MCHC 32.9 RDW 14.9 Platelets 372 MPV 9.8 nRBC 0.0 Neutrophils Relative 70.7 Lymphocytes Relative 18.1 Monocytes Relative 7.8 Eosinophils Relative 2.3 Basophils Relative 0.6 Immature Grans % 0.5 Neutrophils Absolute 8.8 (*) Lymphocytes Absolute 2.3 Monocytes Absolute 1.0 (*) Eosinophils Absolute 0.3 Basophils Absolute 0.1 Immature Grans Absolute 0.1 (*) COMPREHENSIVE METABOLIC PANEL - Abnormal SODIUM 130 (*) POTASSIUM 4.3 CHLORIDE 99 CARBON DIOXIDE 21 (*) ANION GAP 10 UREA NITROGEN 10 CREATININE 0.65 (*) GLUCOSE 202 (*) CALCIUM 8.5 (*) AST (SGOT) 13 ALT 6 ALKALINE PHOSPHATASE 116 ALBUMIN 2.3 (*) BILIRUBIN, TOTAL 0.5 TOTAL PROTEIN 7.6 eGFR >90.0 SEDIMENTATION RATE, AUTOMATED - Abnormal Sed Rate 78 (*) BLOOD CULTURE - Normal Blood Culture Blood culture incubation started Narrative: Blood Collection Site: Left PICC Purple Lumen BLOOD CULTURE - Normal Blood Culture Blood culture incubation started Narrative: Blood Collection Site: Right Forearm LACTIC ACID WITH REFLEX - Normal LACTIC ACID 1.1 AEROBIC AND ANAEROBIC CULTURE WITH STAIN Narrative: The following orders were created for panel order Aerobic and Anaerobic Culture with Stain. Procedure Abnormality Status --------- ------ Culture, Aerobic Bacteri...[[id number]] Abnormal Preliminary result Anaerobic culture[[id number]] In process Please view results for these tests on the individual orders. CULTURE ANAEROBIC All other labs were within normal range or not returned as of this dictation. EMERGENCY DEPARTMENT COURSE and DIFFERENTIAL DIAGNOSIS/MDM: Vitals: Vitals: 04/21/25 2228 BP: 113/62 BP Location: Right arm Patient Position: Lying Pulse: 82 Resp: 16 Temp: 36.7 C (98.1 F) TempSrc: Oral SpO2: 95% Weight: 90.7 kg (200 lb) Height: 1.905 m (6' 3") The patient is presenting with wound infections. Eitel signs are within normal limits the patient is normotensive, nontachycardic, afebrile. Differential include osteomyelitis, deep wound sacral infection, abscess. Will empirically start patient on IV 2000 mg cefepime, IV 5000 mg of vancomycin, 1 L NS bolus for fluid management. Will obtain blood cultures, wound culture, ESR, lactic acid, CMP, CBC for basic labs and look for leukocytosis and obtain CT pelvis with IV contrast to assess for infection. Plan for admission for wound care and IV antibiotics. Reassessment: Lab work concerning for leukocytosis 12.5, ESR elevated 78, lactic acid was normal at 1.1. CT pelvis concerning for cystitis, osteomyelitis of inferior left pubic ramus. Patient already received IV vancomycin, IV cefepime for coverage. [facility] hospitalist was consulted for admission for osteomyelitis and the patient was accepted for further workup and treatment. Medications vancomycin IVPB 1500 mg in 250 mL NS (premix) (1,500 mg IntraVENous New Bag 04/22/25 0027) sodium chloride 0.9 % bolus 1,000 mL (0 mL IntraVENous Stopped 04/22/25 0023) cefepime (Maxipime) 2,000 mg in sodium chloride 0.9 % 50 mL IVPB Mini-Bag Plus (0 mg IntraVENous Stopped 04/21/25 2338) iopamidol (Isovue-370) 76 % injection 75 mL (75 mL IntraVENous Given 04/22/25 0007) HYDROmorphone (Dilaudid) injection 0.5 mg (0.5 mg IntraVENous Given 04/22/25 0142) REVAL: CONSULTS: None PROCEDURES: Unless otherwise noted below, none FINAL IMPRESSION 1. Other acute osteomyelitis, other site ([facility]) DISPOSITION Admit 04/22/2025 01:32:25 AM PATIENT REFERRED TO: No follow-up provider specified. DISCHARGE MEDICATIONS: New Prescriptions No medications on file (Comment: Please note this report has been produced using speech recognition software and may contain errors related to that system including errors in grammar, punctuation, and spelling, as well as words and phrases that may be inappropriate. If there are any questions or concerns please feel free to contact the dictating provider for clarification.) Chele León MD (electronically signed) Emergency Medicine Provider [1] Past Medical History: Diagnosis Date Abnormal posture Abscess, perineum Anemia BPH (benign prostatic hyperplasia) Chronic back pain Hematuria Hip sprain Hyperlipidemia Hypertension Major depressive disorder, single episode, unspecified MRSA (methicillin resistant staph aureus) culture positive spine 2021 Muscle wasting and atrophy, not elsewhere classified, left lower leg Muscle weakness (generalized) Neuropathy Obstructive and reflux uropathy, unspecified Osteoarthritis Other abnormalities of gait and mobility Other reduced mobility Paraplegia (HCC) Sciatica Spinal stenosis of lumbar region with neurogenic claudication Type 2 diabetes mellitus without complication (CMS/HCC) (HCC) Urinary calculus, unspecified UTI (urinary tract infection) [2] Past Surgical History: Procedure Laterality Date ANKLE SURGERY Right He has a titanium plate to the right ankle KNEE SURGERY Left ACL KNEE SURGERY Left removal of screw LAMINECTOMY Left 10/24/2020 LEFT BILATERAL L2-3-4-5 DECOMPRESSION performed by Opal Vigil MD at [facility] OR ORTHOPEDIC SURGERY Right removal of hardware ankle US PLACE URETAL STENT PERC PRE-EXIST TRACT S&I (HISTORICAL) Bilateral 04/14/2024 Dr. Patel/Bashir [3] No family history on file. [4] Social History Socioeconomic History Marital status: Tobacco Use Smoking status: Every Day Current packs/day: 0.25 Average packs/day: 0.5 packs/day for 44.5 years (21.4 ttl pk-yrs) Types: Cigarettes Start date: 1977 Smokeless tobacco: Never Vaping Use Vaping status: Every Day Substances: Nicotine, Flavoring Substance and Sexual Activity Alcohol use: No Drug use: No Social Drivers of Health Financial Resource Strain: Low Risk (04/24/2023) Received from [facility] Overall Financial Resource Strain (CARDIA) Difficulty of Paying Living Expenses: Not hard at all Food Insecurity: No Food Insecurity (02/17/2025) Received from [facility] Hunger Vital Sign Worried About Running Out of Food in the Last Year: Never true Ran Out of Food in the Last Year: Never true Transportation Needs: No Transportation Needs (02/17/2025) Received from [facility] PRAPARE - Transportation Lack of Transportation (Medical): No Lack of Transportation (Non-Medical): No Intimate Partner Violence: Not At Risk (05/18/2024) Humiliation, Afraid, Rape, and Kick questionnaire Fear of Current or Ex-Partner: No Emotionally Abused: No Physically Abused: No Sexually Abused: No Housing Stability: Unknown (02/17/2025) Received from [facility] Housing Stability Vital Sign Unable to Pay for Housing in the Last Year: No Homeless in the Last Year: No Chele León MD Resident 04/22/25 0219 Cosigned by Brad Campos MD at 04/22/2025 2:22 AM EDT [facility] 04-21-2025 Physician Emergency department Note Patient: Anmol Reynolds : 1960 Date of Evaluation: 04/21/2025 ED Supervising Physician: Brad Campos MD I personally evaluated Anmol Reynolds and made/approved the management plan and take responsibility for the patient management. In brief, Anmol Reynolds is a 64 y.o. that presents to the emergency department with concerns for wound infection. Patient is paraplegic secondary to a surgical complication years ago. States that he is at a care home and they were concerned that his wounds on his sacrum and buttock are getting infected. On physical exam he has a wound on his sacrum at the top of the gluteal cleft which appears to be healing well. The patient states that wound is old. He also has a stage III decubitus ulcer on his right buttock with surrounding erythema that is hot to touch and foul-smelling. Will start antibiotics, check labs, check CT, and reassess. For full details of the encounter please see the resident note dated same day. Differential diagnosis: Acute cellulitis, acute wound infection, acute osteomyelitis, acute sepsis I personally discussed the patient's management with other clinicians: CHIEF COMPLAINT Chief Complaint Patient presents with Wound Infection Per EMS pt was sent here from the [place] for wound infections. Pt has two wound on his sacrum - one at the top of sacrum and one at the bottom of the buttocks. Denies any fever/ CP/FEVER/ SOB. Pt is paralysis. HISTORY OF PRESENT ILLNESS (Location/Symptom, Timing/Onset, Context/Setting, Quality, Duration, Modifying Factors, Severity) Note limiting factors. I wore appropriate PPE for the entirety of this encounter. Nursing Notes were reviewed. Limitations to history: None Outside historians: None REVIEW OF SYSTEMS Review of Systems Pertinent positives and negatives as per HPI. PAST MEDICAL HISTORY Medical History[1] SURGICAL HISTORY Surgical History[2] CURRENT MEDICATIONS Previous Medications ACETAMINOPHEN (TYLENOL) 325 MG TABLET Take 650 mg by mouth every 6 hours as needed. For elevated temp and/or pain. Do not exceed 3 grams in 24 hour period. ACETIC ACID 0.25 % IRRIGATION ALOGLIPTIN (NESINA) 25 MG TABLET daily. APIXABAN (ELIQUIS) 5 MG TABLET Take 5 mg by mouth twice a day. ASPIRIN 81 MG EC TABLET Take 81 mg by mouth daily. BISACODYL (DULCOLAX) 5 MG EC TABLET Take 5 mg by mouth Daily as needed for constipation. Do not crush, chew, or split. BISACODYL (DULCOLAX) 5 MG SPLIT SUPPOSITORY Insert into the rectum Daily as needed. CALCIUM CARBONATE (TUMS) 500 MG CHEWABLE TABLET 1,000 mg every 8 hours as needed for indigestion or heartburn. CYCLOBENZAPRINE (FLEXERIL) 10 MG TABLET Take 10 mg by mouth 3 times daily as needed for muscle spasms. DOCUSATE SODIUM (COLACE) 100 MG TABLET Take 100 mg by mouth 2 times daily. DULOXETINE (CYMBALTA) [address] CAPSULE Take 30 mg by mouth daily. FERROUS SULFATE 325 (65 FE) MG TABLET Take 325 mg by mouth daily (with breakfast). HYPROMELLOSE (PURE & GENTLE LUBRICANT) 0.3 % SOLUTION Administer 1 drop into affected eye(s) if needed. INSULIN GLARGINE (LANTUS) 100 UNIT/ML PEN Inject 45 Units under the skin every morning. INSULIN LISPRO (HUMALOG) 100 UNIT/ML SOLUTION INJECTION Inject 0-28 Units under the skin. 0-160=0 units; 161-200=14 units, 201-250=18 units, 251-300=20 units 301-350=22 units, 351-400=28 units, 401 or higher give 28 units and call physician. LINAGLIPTIN (TRADJENTA) 5 MG TABLET 5 mg daily. MAGNESIUM HYDROXIDE (MILK OF MAGNESIA PO) Take 30 mL by mouth Daily as needed. MIDODRINE (PROAMATINE) 10 MG TABLET Take 10 mg by mouth 3 times a day. MIRTAZAPINE (REMERON) 7.5 MG TABLET Take 7.5 mg by mouth Nightly. MULTIPLE VITAMIN (MULTIVITAMIN) CAPSULE Take 1 capsule by mouth daily. NALOXONE (NARCAN) 4 MG/0.1 ML NASAL SPRAY OXYCODONE (ROXICODONE) 15 MG IMMEDIATE RELEASE TABLET Take 1 tablet (15 mg) by mouth in the morning and 1 tablet (15 mg) at noon and 1 tablet (15 mg) in the evening and 1 tablet (15 mg) before bedtime. POLYETHYLENE GLYCOL, PEG, 3350 (MIRALAX) 17 G PACKET Take 17 g by mouth in the morning and 17 g in the evening. POTASSIUM CHLORIDE CR (KLOR-CON M20) 20 MEQ ER TABLET 40 mEq daily. PREGABALIN (LYRICA) 200 MG CAPSULE Take 1 capsule (200 mg) by mouth 3 times daily for 7 days. SENNA-DOCUSATE (CHEYENNE-COLACE) 8.6-50 MG TABLET Take 2 tablets by mouth twice a day. SODIUM CHLORIDE 0.9 % IRRIGATION SOLUTION Irrigate with as directed. 10 ml every 12 hours before and after medication administration SULFAMETHOXAZOLE-TRIMETHOPRIM (BACTRIM DS) 800-160 MG TABLET 1 tablet every 12 hours. TAMSULOSIN (FLOMAX) 0.4 MG 24 HR CAPSULE 0.4 mg daily. ALLERGIES Patient has no known allergies. FAMILY HISTORY Family History[3] SOCIAL HISTORY Social History[4] SCREENINGS [place] Coma Scale Best Eye Response: Spontaneous Best Verbal Response: Oriented Best Motor Response: Follows commands [place] Coma Scale Score: 15 PHYSICAL EXAM ED Triage Vitals Temp Pulse Resp BP -- -- -- -- SpO2 Temp src Heart Rate Source Patient Position -- -- -- -- BP Location FiO2 (%) -- -- Physical Exam Vitals and nursing note reviewed. Constitutional: Appearance: He is well-developed. HENT: Head: Normocephalic and atraumatic. Eyes: Conjunctiva/sclera: Conjunctivae normal. Cardiovascular: Rate and Rhythm: Normal rate. Pulmonary: Effort: Pulmonary effort is normal. No respiratory distress. Abdominal: Palpations: Abdomen is soft. Tenderness: There is no abdominal tenderness. Musculoskeletal: Cervical back: Neck supple. Skin: General: Skin is warm and dry. Comments: Healing wound at the proximal gluteal cleft, stage III decubitus ulcer in the right buttock with surrounding erythematous hot to touch with foul-smelling discharge Neurological: Mental Status: He is alert. Psychiatric: Mood and Affect: Mood normal. DIAGNOSTIC RESULTS Procedures/EKG: See epiphany for interpretation RADIOLOGY (Per Emergency Physician): Interpretation per the Radiologist below, if available at the time of this note: CT pelvis w IV contrast Final Result 1. Findings are highly suspicious for osteomyelitis of the left inferior pubic ramus and sacrum/coccyx junction with erosive lucency as well as bone in contact with air. Overlying locules of air and edema and wound present in the soft tissue. 2. Bladder wall thickening, consider cystitis. 3. Additional findings, as above. Report Dictated on Electronically Signed By: Geneva Lunsford MD Electronically Signed Date/Time: 04/22/2025 12:31 AM EDT ED BEDSIDE ULTRASOUND: Performed by ED Physician - none LABS: Labs Reviewed CULTURE, AEROBIC BACTERIA WITH GRAM STAIN - Abnormal Result Value Culture Culture in progress Gram Stain Result (*) Value: Many Polymorphonuclear leukocytes per low power field Gram Stain Result Many Gram negative bacilli (*) Gram Stain Result Many Gram positive cocci in pairs and chains (*) Gram Stain Result Few Gram positive cocci in clusters (*) Gram Stain Result Few Gram positive bacilli (*) CBC WITH AUTO DIFFERENTIAL - Abnormal Auto WBC 12.5 (*) RBC 4.03 (*) Hemoglobin 11.7 (*) Hematocrit 35.6 (*) MCV 88.3 MCH 29.0 MCHC 32.9 RDW 14.9 Platelets 372 MPV 9.8 nRBC 0.0 Neutrophils Relative 70.7 Lymphocytes Relative 18.1 Monocytes Relative 7.8 Eosinophils Relative 2.3 Basophils Relative 0.6 Immature Grans % 0.5 Neutrophils Absolute 8.8 (*) Lymphocytes Absolute 2.3 Monocytes Absolute 1.0 (*) Eosinophils Absolute 0.3 Basophils Absolute 0.1 Immature Grans Absolute 0.1 (*) COMPREHENSIVE METABOLIC PANEL - Abnormal SODIUM 130 (*) POTASSIUM 4.3 CHLORIDE 99 CARBON DIOXIDE 21 (*) ANION GAP 10 UREA NITROGEN 10 CREATININE 0.65 (*) GLUCOSE 202 (*) CALCIUM 8.5 (*) AST (SGOT) 13 ALT 6 ALKALINE PHOSPHATASE 116 ALBUMIN 2.3 (*) BILIRUBIN, TOTAL 0.5 TOTAL PROTEIN 7.6 eGFR >90.0 SEDIMENTATION RATE, AUTOMATED - Abnormal Sed Rate 78 (*) LACTIC ACID WITH REFLEX - Normal LACTIC ACID 1.1 BLOOD CULTURE BLOOD CULTURE AEROBIC AND ANAEROBIC CULTURE WITH STAIN Narrative: The following orders were created for panel order Aerobic and Anaerobic Culture with Stain. Procedure Abnormality Status --------- ------ Culture, Aerobic Bacteri...[[id number]] Abnormal Preliminary result Anaerobic culture[[id number]] In process Please view results for these tests on the individual orders. CULTURE ANAEROBIC All other labs were within normal range or not returned as of this dictation. EMERGENCY DEPARTMENT COURSE and DIFFERENTIAL DIAGNOSIS/MDM: Vitals: Vitals: 04/21/25 2228 BP: 113/62 BP Location: Right arm Patient Position: Lying Pulse: 82 Resp: 16 Temp: 36.7 C (98.1 F) TempSrc: Oral SpO2: 95% Weight: 90.7 kg (200 lb) Height: 1.905 m (6' 3") Diagnoses as of 04/22/25 0200 Other acute osteomyelitis, other site (HCC) Medications vancomycin IVPB 1500 mg in 250 mL NS (premix) (1,500 mg IntraVENous New Bag 04/22/25 0027) sodium chloride 0.9 % bolus 1,000 mL (0 mL IntraVENous Stopped 04/22/25 0023) cefepime (Maxipime) 2,000 mg in sodium chloride 0.9 % 50 mL IVPB Mini-Bag Plus (0 mg IntraVENous Stopped 04/21/25 2338) iopamidol (Isovue-370) 76 % injection 75 mL (75 mL IntraVENous Given 04/22/25 0007) HYDROmorphone (Dilaudid) injection 0.5 mg (0.5 mg IntraVENous Given 04/22/25 0142) REVAL: MDM On reassessment I talked to the patient about his test results. His CT is concerning for sacral osteomyelitis. Will continue antibiotics and admit for further workup and treatment. CRITICAL CARE TIME CONSULTS: None PROCEDURES: Unless otherwise noted below, none Procedures Patients symptoms are consistent with sepsis, severe sepsis, or septic shock (If yes use ".sepsiscoremeasure"): No FINAL IMPRESSION 1. Other acute osteomyelitis, other site (HCC) DISPOSITION Admit 04/22/2025 01:32:25 AM PATIENT REFERRED TO: No follow-up provider specified. DISCHARGE MEDICATIONS: New Prescriptions No medications on file (Comment: Please note this report has been produced using speech recognition software and may contain errors related to that system including errors in grammar, punctuation, and spelling, as well as words and phrases that may be inappropriate. If there are any questions or concerns please feel free to contact the dictating provider for clarification.) Brad Campos MD (electronically signed) Emergency Medicine Provider [1] Past Medical History: Diagnosis Date Abnormal posture Abscess, perineum Anemia BPH (benign prostatic hyperplasia) Chronic back pain Hematuria Hip sprain Hyperlipidemia Hypertension Major depressive disorder, single episode, unspecified MRSA (methicillin resistant staph aureus) culture positive spine 2021 Muscle wasting and atrophy, not elsewhere classified, left lower leg Muscle weakness (generalized) Neuropathy Obstructive and reflux uropathy, unspecified Osteoarthritis Other abnormalities of gait and mobility Other reduced mobility Paraplegia (HCC) Sciatica Spinal stenosis of lumbar region with neurogenic claudication Type 2 diabetes mellitus without complication (CMS/HCC) (HCC) Urinary calculus, unspecified UTI (urinary tract infection) [2] Past Surgical History: Procedure Laterality Date ANKLE SURGERY Right He has a titanium plate to the right ankle KNEE SURGERY Left ACL KNEE SURGERY Left removal of screw LAMINECTOMY Left 10/24/2020 LEFT BILATERAL L2-3-4-5 DECOMPRESSION performed by Opal Vigil MD at [facility] OR ORTHOPEDIC SURGERY Right removal of hardware ankle US PLACE URETAL STENT PERC PRE-EXIST TRACT S&I (HISTORICAL) Bilateral 04/14/2024 Dr. Patel/Bashir [3] No family history on file. [4] Social History Socioeconomic History Marital status: Tobacco Use Smoking status: Every Day Current packs/day: 0.25 Average packs/day: 0.5 packs/day for 44.5 years (21.4 ttl pk-yrs) Types: Cigarettes Start date: 1977 Smokeless tobacco: Never Vaping Use Vaping status: Every Day Substances: Nicotine, Flavoring Substance and Sexual Activity Alcohol use: No Drug use: No Social Drivers of Health Financial Resource Strain: Low Risk (04/24/2023) Received from [facility] Overall Financial Resource Strain (CARDIA) Difficulty of Paying Living Expenses: Not hard at all Food Insecurity: No Food Insecurity (02/17/2025) Received from [facility] Hunger Vital Sign Worried About Running Out of Food in the Last Year: Never true Ran Out of Food in the Last Year: Never true Transportation Needs: No Transportation Needs (02/17/2025) Received from [facility] PRAPARE - Transportation Lack of Transportation (Medical): No Lack of Transportation (Non-Medical): No Intimate Partner Violence: Not At Risk (05/18/2024) Humiliation, Afraid, Rape, and Kick questionnaire Fear of Current or Ex-Partner: No Emotionally Abused: No Physically Abused: No Sexually Abused: No Housing Stability: Unknown (02/17/2025) Received from [facility] Housing Stability Vital Sign Unable to Pay for Housing in the Last Year: No Homeless in the Last Year: No Brad Campos MD 04/22/25 0201 [employer] Phone: 03-24-2025 Telephone encounter Note Per op note pt should get a renal US in [address]. [address] the order? [facility] 03-24-2025 Miscellaneous Notes Per op note pt should get a renal US in [address] the order? documented in this encounter [facility] 03-20-2025 Note HNO ID: [id number] Author: JAX VALENZUELA APRN.THREAD SPOOLER Service: Anesthesiology Author Type: Nurse [employer] Type: Anesthesia Procedure Notes Filed: 03/20/2025 10:33 Note Text: ANESTHESIOLOGY PROCEDURE NOTE PIV General Information Procedure Start Time/Medication Administration: 03/20/2025 10:00 AM Procedure End Time: 03/20/2025 10:02 AM Staffing Performed by: anesthesiologist Preparation Sterility Preparation: hand hygiene performed prior to procedure, sterile gloves, drapes, and procedure tray, gown used during line insertion, surgical cap used, mask used, sterile drape used during line insertion, skin prep agent completely dried prior to procedure Site Prep: Chloraprep Procedure Details Indication: need for IV access Needle Size/Type: 22 gauge angiocath Orientation: Right Location: Hand Imaging Guidance Used: No SIGNATURE: Jax Valenzuela APRN.THREAD SPOOLER PATIENT NAME: Anmol Araujo Given DATE: March 20, 2025 TIME: 10:32 AM CSN: [id number] [facility] 03-20-2025 Note HNO ID: [id number] Author: JAX VALENZUELA APRN.THREAD SPOOLER Service: Anesthesiology Author 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: Nurse 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 [employer] Type: Anesthesia Procedure Notes Filed: 03/20/2025 10:32 Note Text: ANESTHESIOLOGY PROCEDURE NOTE Airway General Information Procedure Start Time/Medication Administration: 03/20/2025 10:27 AM Procedure End Time: 03/20/2025 10:27 AM Patient location during procedure: OR Consent Obtained: Yes Patient identity confirmed: arm band and patient Staffing THREAD SPOOLER: Jax Valenzuela APRN.THREAD SPOOLER Performed by: BENJA Indications and Patient Condition Indications for airway management: anesthesia Preoxygenated: yes anesthesia circuit Patient position: sniffing Method: asleep Difficult Mask: No Final Airway Details Final airway type: supraglottic airway Final Supraglottic Airway: i-gel Size 5 Seal Adequate: yes Failed airway: no Airway not difficult SIGNATURE: Jax Valenzuela APRN.THREAD SPOOLER PATIENT NAME: Anmol Araujo Given DATE: March 20, 2025 TIME: 10:32 AM CSN: [id number] [facility] 03-15-2025 Telephone encounter Note Spoke to nursing facility who states Pt is going to proceed with surgery at [facility]. [facility] 03-15-2025 Miscellaneous Notes Spoke to nursing facility who states Pt is going to proceed with surgery at [facility]. Left message for Pts nurse to call me back. Can you call [facility] and see if they are going to send disc to us? Or if patient still scheduled for procedure at [facility]. [facility] number: [phone] Still need disc with images. Will need to review with Dr. Patel. Is it OK to get Pt scheduled for surgery? Please advise. Talked to staff from [facility] that patient would like to have procedure at [facility]. Requested that CD with images from [facility] be sent to [facility] urology. Staff will let Farideh know- she does scheduling/arranges procedures for residents. [facility] number: [phone] documented in this encounter [facility] 03-15-2025 Telephone encounter Note Left message for Pts nurse to call me back. [facility] 03-14-2025 Note HNO ID: [id number] Author: MILAD GOODSON MD Service: ? Author Type: Physician Type: Progress Notes Filed: 03/20/2025 10:37 Note Text: INFECTIOUS DISEASE WOUND CENTER NOTE Patient Name: Anmol Reynolds Date: 03/14/2025 ASSESSMENT: Worsening ischial wound post hospitalization at [facility] recently Chronic sacral S5 segment chronic osteomyelitis on MRI Chronic sacrococcygeal wound, nonhealing Quadriplegia Diabetes mellitus History of smoking RECOMMENDATIONS Use Santyl w wound care Monitor off abx Offloading Address nutrition Check ESR Check CRP Check prealbumin level Reviewed and discussed MRI of the sacrum from 01/04/2025 Chronic osteomyelitis typically does not need to be treated with prolonged antibiotic use and can be treated conservatively with offloading, wound care and improvement of nutrition. The patient reports that the wound has been getting smaller for the last several months without antibiotic treatment. Follow-up in the wound center with infectious disease in 6 weeks for follow-up on the wound or any signs of clinical infection in the area Wound center [employer] follow up in 1 week INTERVAL HISTORY: ROS done with pt and negative unless stated. Was recently admitted to [facility] and needed intubation and ventilation. Since that time the ischial wound has worsened. No fevers. Can't feel pain in the wounds but has phantom pains MEDICATIONS: apixaban (ELIQUIS) 5 mg tab(s) Take 1 tablet by mouth two times a day. insulin glargine 100 unit/mL (3 mL) Inject 20 Units subcutaneously every morning. insulin lispro 100 unit/mL injection Inject 0-15 Units subcutaneously with meals and at bedtime. ADMINISTER CORRECTIONAL INSULIN REGARDLESS OF MEAL OR NUTRITION INTAKE Scale 3 If Blood Glucose (mg/dL) is: Less than 110 Give 0 units 111-150 Give 1 unit 151-200 Give 3 units 201-250 Give 6 units 251-300 Give 9 units 301-350 Give 12 units 351-400 Give 15 units Greater than 400 Give 15 units and Notify Provider Notify provider if 2 consecutive blood glucose values in the previous 24 hours are greater than 250 mg/dL and there have been no changes to the insulin regimen in the previous 24 hours. senna-docusate (SENNA-S) 8.6-50 mg per tablet Take 2 tablets by mouth two times a day. midodrine (PROAMATINE) 10 mg tablet Take 1 tablet by mouth every 8 hours. DULoxetine (CYMBALTA) 30 mg capsule Take 30 mg by mouth once daily. polyethylene glycol 3350 17 gram packet Take 17 g by mouth once daily as needed for constipation. Dissolve dose in 4 - 8 ounces of liquid and take as directed. Mirtazapine (REMERON) 7.5 mg tablet Take 7.5 mg by mouth daily at bedtime. therapeutic multivitamin-minerals (THERA-M PLUS) 9 mg iron-400 mcg tablet Take 1 tablet by mouth once daily. pregablin (LYRICA) 200 mg capsule Take 200 mg by mouth three times a day. linaGLIPtin (TRADJENTA) 5 mg tab Take 5 mg by mouth once daily. calcium carbonate (TUMS) 500 mg chew Take 500 mg by mouth every 8 hours as needed (heartburn). ferrous sulfate 325 mg (65 mg iron) tablet Take 325 mg by mouth once daily. oxyCODONE (ROXICODONE) 15 mg immediate release tablet Take 15 mg by mouth four times daily. docusate sodium (COLACE) 100 mg capsule Take 1 capsule by mouth twice daily. tamsulosin (FLOMAX) 0.4 mg Take 1 capsule by mouth once daily. cyclobenzaprine (FLEXERIL) 10 mg tablet Take 1 tablet by mouth three times daily. acetaminophen 325 mg cap Take 2 capsules by mouth every 6 hours as needed for pain or fever (specify temp.). aspirin 81 mg chewable tablet 1 tablet by ORAL/FEEDING TUBE route once daily. (Patient not taking: Reported on 03/14/2025) PHYSICAL EXAM: Vital signs: stable, afeb General: alert, oriented, NAD Lungs: bilaterally clear to auscultation Heart: regular rate and rhythm Abdomen: soft, non tender, non distended, BS+ Extremities: no swollen joints Skin: no rash Ischial wound is bigger and w slough at the base Sacral wound w bloody serous drainage No pus or cellulitis Lab data: reviewed WBC (k/uL) Date Value 02/22/2025 9.23 02/21/2025 9.99 02/19/2025 9.94 11/25/2021 13.30 09/06/2021 5.98 09/05/2021 6.76 Hemoglobin (g/dL) Date Value 02/22/2025 10.6 02/21/2025 12.3 02/19/2025 11.1 11/25/2021 14.0 09/06/2021 13.3 09/05/2021 13.3 PT INR (no units) Date Value 11/25/2021 1.0 09/04/2021 1.0 INR (no units) Date Value 02/17/2025 1.2 01/14/2022 1.1 01/04/2022 1.0 Sodium (mmol/L) Date Value 02/22/2025 139 02/21/2025 135 02/20/2025 141 11/25/2021 131 09/06/2021 136 09/05/2021 137 Potassium (mmol/L) Date Value 02/22/2025 3.9 02/21/2025 4.1 02/20/2025 4.1 11/25/2021 3.6 09/06/2021 3.5 09/05/2021 3.5 CO2 (mmol/L) Date Value 02/22/2025 23 02/21/2025 21 02/20/2025 23 11/25/2021 22 09/06/2021 25 09/05/2021 23 BUN (mg/dL) Date Value 02/22/2025 14 02/21/2025 21 02/20/2025 25 11/25/2021 8 09/06/2021 (more content not included)... [facility] 03-14-2025 History of Present illness Narrative Images from the original note were not included. INFECTIOUS DISEASE WOUND CENTER NOTE Patient Name: Anmol Reynolds Date: 03/14/2025 ASSESSMENT: Worsening ischial wound post hospitalization at [facility] recently Chronic sacral S5 segment chronic osteomyelitis on MRI Chronic sacrococcygeal wound, nonhealing Quadriplegia Diabetes mellitus History of smoking RECOMMENDATIONS Use Santyl w wound care Monitor off abx Offloading Address nutrition Check ESR Check CRP Check prealbumin level Reviewed and discussed MRI of the sacrum from 01/04/2025 Chronic osteomyelitis typically does not need to be treated with prolonged antibiotic use and can be treated conservatively with offloading, wound care and improvement of nutrition. The patient reports that the wound has been getting smaller for the last several months without antibiotic treatment. Follow-up in the wound center with infectious disease in 6 weeks for follow-up on the wound or any signs of clinical infection in the area Wound center [employer] follow up in 1 week INTERVAL HISTORY: ROS done with pt and negative unless stated. Was recently admitted to [facility] and needed intubation and ventilation. Since that time the ischial wound has worsened. No fevers. Can't feel pain in the wounds but has phantom pains MEDICATIONS: apixaban (ELIQUIS) 5 mg tab(s) Take 1 tablet by mouth two times a day. insulin glargine 100 unit/mL (3 mL) Inject 20 Units subcutaneously every morning. insulin lispro 100 unit/mL injection Inject 0-15 Units subcutaneously with meals and at bedtime. ADMINISTER CORRECTIONAL INSULIN REGARDLESS OF MEAL OR NUTRITION INTAKE Scale 3 If Blood Glucose (mg/dL) is: Less than 110 Give 0 units 111-150 Give 1 unit 151-200 Give 3 units 201-250 Give 6 units 251-300 Give 9 units 301-350 Give 12 units 351-400 Give 15 units Greater than 400 Give 15 units and Notify Provider Notify provider if 2 consecutive blood glucose values in the previous 24 hours are greater than 250 mg/dL and there have been no changes to the insulin regimen in the previous 24 hours. senna-docusate (SENNA-S) 8.6-50 mg per tablet Take 2 tablets by mouth two times a day. midodrine (PROAMATINE) 10 mg tablet Take 1 tablet by mouth every 8 hours. DULoxetine (CYMBALTA) 30 mg capsule Take 30 mg by mouth once daily. polyethylene glycol 3350 17 gram packet Take 17 g by mouth once daily as needed for constipation. Dissolve dose in 4 - 8 ounces of liquid and take as directed. Mirtazapine (REMERON) 7.5 mg tablet Take 7.5 mg by mouth daily at bedtime. therapeutic multivitamin-minerals (THERA-M PLUS) 9 mg iron-400 mcg tablet Take 1 tablet by mouth once daily. pregablin (LYRICA) 200 mg capsule Take 200 mg by mouth three times a day. linaGLIPtin (TRADJENTA) 5 mg tab Take 5 mg by mouth once daily. calcium carbonate (TUMS) 500 mg chew Take 500 mg by mouth every 8 hours as needed (heartburn). ferrous sulfate 325 mg (65 mg iron) tablet Take 325 mg by mouth once daily. oxyCODONE (ROXICODONE) 15 mg immediate release tablet Take 15 mg by mouth four times daily. docusate sodium (COLACE) 100 mg capsule Take 1 capsule by mouth twice daily. tamsulosin (FLOMAX) 0.4 mg Take 1 capsule by mouth once daily. cyclobenzaprine (FLEXERIL) 10 mg tablet Take 1 tablet by mouth three times daily. acetaminophen 325 mg cap Take 2 capsules by mouth every 6 hours as needed for pain or fever (specify temp.). aspirin 81 mg chewable tablet 1 tablet by ORAL/FEEDING TUBE route once daily. (Patient not taking: Reported on 03/14/2025) PHYSICAL EXAM: Vital signs: stable, afeb General: alert, oriented, NAD Lungs: bilaterally clear to auscultation Heart: regular rate and rhythm Abdomen: soft, non tender, non distended, BS+ Extremities: no swollen joints Skin: no rash Ischial wound is bigger and w slough at the base Sacral wound w bloody serous drainage No pus or cellulitis Lab data: reviewed WBC (k/uL) Date Value 02/22/2025 9.23 02/21/2025 9.99 02/19/2025 9.94 11/25/2021 13.30 09/06/2021 5.98 09/05/2021 6.76 Hemoglobin (g/dL) Date Value 02/22/2025 10.6 02/21/2025 12.3 02/19/2025 11.1 11/25/2021 14.0 09/06/2021 13.3 09/05/2021 13.3 PT INR (no units) Date Value 11/25/2021 1.0 09/04/2021 1.0 INR (no units) Date Value 02/17/2025 1.2 01/14/2022 1.1 01/04/2022 1.0 Sodium (mmol/L) Date Value 02/22/2025 139 02/21/2025 135 02/20/2025 141 11/25/2021 131 09/06/2021 136 09/05/2021 137 Potassium (mmol/L) Date Value 02/22/2025 3.9 02/21/2025 4.1 02/20/2025 4.1 11/25/2021 3.6 09/06/2021 3.5 09/05/2021 3.5 CO2 (mmol/L) Date Value 02/22/2025 23 02/21/2025 21 02/20/2025 23 11/25/2021 22 09/06/2021 25 09/05/2021 23 BUN (mg/dL) Date Value 02/22/2025 14 02/21/2025 21 02/20/2025 25 11/25/2021 8 09/06/2021 5 09/05/2021 10 Creatinine (mg/dL) Date Value 02/22/2025 0.60 02/21/2025 0.58 02/20/2025 0.60 11/25/2021 0.31 09/06/2021 0.40 09/05/2021 0.40 AST (U/L) Date Value 02/22/2025 13 02/21/2025 23 02/20/2025 22 11/25/2021 118 09/06/2021 128 09/05/2021 170 ALT (U/L) Date Value 02/22/2025 12 02/21/2025 15 02/20/2025 17 11/25/2021 152 09/06/2021 265 09/05/2021 325 Bilirubin, Total (mg/dL) Date Value 02/22/2025 0.4 02/21/2025 0.8 02/20/2025 0.8 11/25/2021 0.6 09/06/2021 0.4 09/05/2021 0.6 Alkaline Phosphatase (U/L) Date Value 02/22/2025 89 02/21/2025 121 02/20/2025 107 11/25/2021 241 09/06/2021 238 09/05/2021 297 WSR (mm/hr) Date Value 11/27/2021 93 Sed Rate, Westergren (mm/hr) Date Value 01/04/2022 121 12/15/2021 133 Lactate (mmol/L) Date Value 02/17/2025 2.2 09/03/2021 0.9 01/18/2021 1.8 06/13/2019 1.3 Lactate (POCT) (mmol/L) Date Value 02/16/2025 2.4 01/04/2022 1.1 Vancomycin, result (ug/mL) Date Value 01/20/2021 5.0 Vancomycin (ug/mL) Date Value 02/17/2025 6.1 12/02/2021 13.7 12/01/2021 14.2 11/29/2021 11.2 11/28/2021 5.5 Microbiology data: reviewed Imaging data: reviewed Milad Goodson MD Pager: Nursing Documentation Pertinent Medical History: paraplegia, MRSA, osteomyelitis, UTI, DM2, neuropathy, pyelonephritis, Wound Etiology according to patient: sacrum wound has had for four years per pt Patient arrived via: self in motorized wheelchair - patient is a [place] with multiple staff Home Care Company/Nursing Facility: [facility] Consent captured for debridement per (Provider) and good until Special Instructions (for example, patient stands at the bedside for exam/dressing): bed Anticoagulant Therapy: Eliquis Living Situation (ie... Apartment, house, [place]): [facility] Who lives with patient: facility Who will be performing wound care: wound care nurse Available Support System: mom and daughter In-Home Assist Devices: motorized wheelchair Occupation: ie..Retired or Working: retired Provider seeing patient: Milad Goodson MD __ WOUND ASSESSMENT: Refer to Provider's Wound Assessment Note VASCULAR ASSESSMENT BY PROVIDER: N/A CHF History: no Smoking: yes 6 cigarettes at the most Education: EDEMA: n/a Right foot: Right calf: Left foot: Left Calf: Other: MEASUREMENTS: in CM n/a Right Calf: Right Ankle: Left Calf: Left Ankle: Length: ROGERIO'S Left: Right: Brachial Pressure: HR: WOUND PHOTOGRAPHY: YES x 2 , date taken: 03/14/25 DEBRIDEMENT PROCEDURE BY PROVIDER: Anesthetic Used: N/A applied per color straining bag washer # 1 & 2 Other procedure: Specimen collected: WOUND TREATMENT PER MD ORDER: Wounds cleansed by mechanical debridement to allow provider to visualize wound base WOUND # 1 LOCATION: Sacrum patient laying on right side L: 2.1 cm x W: 0.4 cm x D: 1.1 cm Undermining 0900: 1.4 0300: 0.7 cm WOUND # 2 LOCATION:Left ischium L: 5.3 cm x W: 4.5 cm x D: 1.7 cm slight stretch to measure patient laying on right side Underminin: 0.9 Cleansed with: vashe Applied to cheyenne-wound skin: hydrocortisone cream followed by aure antifungal Applied to wound bed: calcium alginate AG Covered and secured with: 4x4's, abd pad, tape Other: COMPRESSION: N/A DME: Prism order date DME: [employer] , PH: [phone] SPECIAL NEEDS: EFax orders to [facility] [phone] Emotional support N/A OR set-up N/A Pharmaceutical Sales Representative N/A Incontinence needs N/A DISCHARGED in stable condition to: facility in motorized wheelchair PLAN/ORDERS: - Return to the Wound Center to see Milad Goodson MD in 6 weeks. - Follow up in the wound center 1-2 weeks for buttock wounds - Please send patient with medication list at next appointment. - Continue aggressive nutritional support to assist wound healing Labs to be drawn PARI and results faxed to [facility] [phone] Stop smoking EDUCATION: The patient/family was instructed how to cleanse the wound(s). Visual demonstration on how to apply the dressing with teach back method. Signs & symptoms of infection were reviewed: Increased redness, swelling, pain, green/yellow drainage, fever and/or chills would all need to be evaluated by a Physician. Patient received typed home-going wound care instructions and has expressed intent to comply. Due to the cold and flu season approaching us, if you have any symptoms such as a cough, fever, chills, nausea, vomiting, diarrhea, and/or body aches, please call and reschedule your appointment in the Wound Center. OTHER EDUCATION by RN: Education performed regarding lymphedema/edema: Elevation of extremity above the heart for 30 minutes three times daily and as needed Exercise such as writing the ABC's with your toes in the air, walking and/or calf pumps Wearing compression as ordered by provider Diet controlling of sodium as instructed by provider Use of medication to help control edema. UNIVERSAL PROTOCOL / SAFETY CHECKLIST N/a Current HBOT Status: Active or Complete - see screening below WOUND CENTER HYPERBARIC OXYGEN THERAPY SCREENING 1. Is the patient diabetic? (If No, skip to question 5) Yes 2. Does the patient have a lower extremity wound? No 3. Is there exposed/involved tendon or bone? No 4. Has the wound been present for 30 days? Yes If Yes to ALL questions above, consult the Hyperbaric Center 5. Has the patient been diagnosed with osteomyelitis? Yes 6. Has the patient had a previous skin graft or flap at the wound? No 7. Has the patient had or been offered vascular intervention/evaluation? Yes 8. Does the patient have a wound at an amputation site? No 9. Has the patient had radiation therapy at the site of the problem? No If Yes to ANY of questions 5-9, consult the Hyperbaric Center documented in this encounter [facility] 03-14-2025 Instructions Dawood Tiwari RN - 03/14/2025 2:16 PM EDT WOUND CARE INSTRUCTIONS- Anmol Reynolds Wound location: sacrum & left ischium [place] Wound Cleansing: -Gather supplies -Place down a clean work surface such as new paper towel or newly cleaned towel -Clean all metal instruments with rubbing alcohol before and after each use. - Plastic garbage bag for old dressing - Wash your hands with soap and water before and after wound care. - Apply a vashe' moistened 4x4 gauze soak for 5-10 minutes. Pat dry. Wound Care: Left Ischial - Apply Nickel thick Santyl to the wound bed - Gently pack with saline moistened gauze on top of the Santyl filling the wound space - Cover with 4x4's, abd pad, tape - Change your dressing daily and as needed to keep clean dry and intact. Wound Care: Sacrum - Apply calcium alginate silver to the wound base. - Apply hydrocortisone cream to the cheyenne-wound - Apply Aure Antifungal cream over top of hydrocortisone - Cover with 4x4's, abd pad, tape - Change your dressing daily and keep clean dry and intact. Patient needs to be on his side instead of laying on his back side Avoid sitting as much as possible To give your wound the best chance to heal: - Eat three balanced meals daily focusing on the protein - Control swelling by elevating the extremity above your heart - exercise the extremity - Control your blood sugar. Keep blood sugar less than 200 - Complete your wound care instructions - Vitamin C 500 mg twice daily - Multiple Vitamin Daily - Drink a protein shake daily - Smoking decreases the amount of oxygen delivered to tissue and can impair wound healing and/or increased risk of infection Report any of the following changes to the Wound Center at [phone] or go to the Emergency Department: Fever or chills Increased drainage Green or yellow drainage Foul odor Increased pain Hardness around the wound Redness, warmth or swelling of the surrounding tissue Color change to the wound When contacting the wound center at the ([phone]): Leave a message that includes your full name, birthday, phone number who your provider is and the reason for your call. During clinic hours we are with patients. A nurse will return your call within 24-48 hours in the order it was received. The wound center is closed weekends and on major holidays. If you call at that time we will return your call in the order that the calls were received at the soonest opportunity. If you have any signs of infection or need immediate attention then please go to the emergency department to be evaluated Thank you for your understanding and cooperation. PLAN/ORDERS: - Return to the Wound Center to see Milad Goodson MD in 6 weeks. - Follow up in the wound center 1-2 weeks for buttock wounds - Please send patient with medication list at next appointment. - Continue aggressive nutritional support to assist wound healing Labs to be drawn PARI and results faxed to [facility] [phone] Stop smoking Milad Goodson MD/mjmina/lt documented in this encounter [facility] 03-14-2025 Note HNO ID: [id number] Author: DAWOOD TIWARI RN Service: ? Author Type: Registered Nurse Type: Progress Notes Filed: 03/14/2025 14:54 Note Text: Nursing Documentation Pertinent Medical History: paraplegia, MRSA, osteomyelitis, UTI, DM2, neuropathy, pyelonephritis, Wound Etiology according to patient: sacrum wound has had for four years per pt Patient arrived via: self in motorized wheelchair - patient is a [place] with multiple staff Home Care Company/Nursing Facility: [facility] Consent captured for debridement per (Provider) and good until Special Instructions (for example, patient stands at the bedside for exam/dressing): bed Anticoagulant Therapy: Eliquis Living Situation (ie... Apartment, house, [facility]): [facility] Who lives with patient: facility Who will be performing wound care: wound care nurse Available Support System: mom and daughter In-Home Assist Devices: motorized wheelchair Occupation: ie..Retired or Working: retired Provider seeing patient: Milad Goodson MD __ WOUND ASSESSMENT: Refer to Provider's Wound Assessment Note VASCULAR ASSESSMENT BY PROVIDER: N/A CHF History: no Smoking: yes 6 cigarettes at the most Education: EDEMA: n/a Right foot: Right calf: Left foot: Left Calf: Other: MEASUREMENTS: in CM n/a Right Calf: Right Ankle: Left Calf: Left Ankle: Length: ROGERIO'S Left: Right: Brachial Pressure: HR: WOUND PHOTOGRAPHY: YES x 2 , date taken: 03/14/25 DEBRIDEMENT PROCEDURE BY PROVIDER: Anesthetic Used: N/A applied per color straining bag washer # 1 AND 2 Other procedure: Specimen collected: WOUND TREATMENT PER MD ORDER: Wounds cleansed by mechanical debridement to allow provider to visualize wound base WOUND # 1 LOCATION: Sacrum patient laying on right side L: 2.1 cm x W: 0.4 cm x D: 1.1 cm Undermining 0900: 1.4 0300: 0.7 cm WOUND # 2 LOCATION:Left ischium L: 5.3 cm x W: 4.5 cm x D: 1.7 cm slight stretch to measure patient laying on right side Underminin: 0.9 Cleansed with: vashe Applied to cheyenne-wound skin: hydrocortisone cream followed by aure antifungal Applied to wound bed: calcium alginate AG Covered and secured with: 4x4's, abd pad, tape Other: COMPRESSION: N/A DME: Prism order date DME: [employer] , PH: [phone] SPECIAL NEEDS: EFax orders to [facility] [phone] Emotional support N/A OR set-up N/A Pharmaceutical Sales Representative N/A Incontinence needs N/A DISCHARGED in stable condition to: facility in motorized wheelchair PLAN/ORDERS: - Return to the Wound Center to see Milad Goodson MD in 6 weeks. - Follow up in the wound center 1-2 weeks for buttock wounds - Please send patient with medication list at next appointment. - Continue aggressive nutritional support to assist wound healing Labs to be drawn PARI and results faxed to [facility] [phone] Stop smoking EDUCATION: The patient/family was instructed how to cleanse the wound(s). Visual demonstration on how to apply the dressing with teach back method. Signs AND symptoms of infection were reviewed: Increased redness, swelling, pain, green/yellow drainage, fever and/or chills would all need to be evaluated by a Physician. Patient received typed home-going wound care instructions and has expressed intent to comply. Due to the cold and flu season approaching us, if you have any symptoms such as a cough, fever, chills, nausea, vomiting, diarrhea, and/or body aches, please call and reschedule your appointment in the Wound Center. OTHER EDUCATION by RN: Education performed regarding lymphedema/edema: Elevation of extremity above the heart for 30 minutes three times daily and as needed Exercise such as writing the ABC's with your toes in the air, walking and/or calf pumps Wearing compression as ordered by provider Diet controlling of sodium as instructed by provider Use of medication to help control edema. ____ UNIVERSAL PROTOCOL / SAFETY CHECKLIST N/a Current HBOT Status: Active or Complete - see screening below WOUND CENTER HYPERBARIC OXYGEN THERAPY SCREENING 1. Is the patient diabetic? (If No, skip to question 5) Yes 2. Does the patient have a lower extremity wound? No 3. Is there exposed/involved tendon or bone? No 4. Has the wound been present for 30 days? Yes If Yes to ALL questions above, consult the Hyperbaric Center 5. Has the patient been diagnosed with osteomyelitis? Yes 6. Has the patient had a previous skin graft or flap at the wound? No 7. Has the patient had or been offered vascular intervention/evaluation? Yes 8. Does the patient have a wound at an amputation site? No 9. Has the patient had radiation therapy (more content not included)... [facility] 03-14-2025 Note Can you call [facility] and see if they are going to send disc to us? Or if patient still scheduled for procedure at [facility]. [facility] number: [phone] [facility] 03-14-2025 Telephone encounter Note Can you call [facility] and see if they are going to send disc to us? Or if patient still scheduled for procedure at [facility]. [facility] number: [phone] [facility] [place] Phone: 03-14-2025 Miscellaneous Notes Can you call [facility] and see if they are going to send disc to us? Or if patient still scheduled for procedure at [facility]. [facility] number: [phone] Still need disc with images. Will need to review with Dr. Patel. Is it OK to get Pt scheduled for surgery? Please advise. Talked to staff from [facility] that patient would like to have procedure at [facility]. Requested that CD with images from [facility] be sent to [facility]. Staff will let Farideh know- she does scheduling/arranges procedures for residents. [facility] number: [phone] documented in this encounter [facility] 03-13-2025 Telephone encounter Note Still need disc with images. Will need to review with Dr. Patel. [facility] Work Phone: 03-13-2025 Miscellaneous Notes Still need disc with images. Will need to review with Dr. Patel. Is it OK to get Pt scheduled for surgery? Please advise. Talked to staff from [facility] that patient would like to have procedure at [facility]. Requested that CD with images from [facility] be sent to [facility]. Staff will let Farideh know- she does scheduling/arranges procedures for residents. [place] number: [phone] documented in this encounter [facility] 03-13-2025 Telephone encounter Note Is it OK to get Pt scheduled for surgery? Please advise. [facility] 03-08-2025 Telephone encounter Note Patient is scheduled and care home was notified. Information was faxed. [facility] 03-08-2025 Miscellaneous Notes Patient is scheduled and care home was notified. Information was faxed. [facility] Needs outpt cysto, pyelograms, bilateral stent change vs removal in 2-3 weeks. documented in this encounter [facility] 03-07-2025 Note Talked to staff from [facility] that patient would like to have procedure at [facility]. Requested that CD with images from [facility] be sent to [facility]. Staff will let Farideh know- she does scheduling/arranges procedures for residents. [place] [facility] number: [phone] [facility] 03-07-2025 Telephone encounter Note Talked to staff from [facility] that patient would like to have procedure at [facility]. Requested that CD with images from [facility] be sent to [facility]. Staff will let Farideh know- she does scheduling/arranges procedures for residents. [facility] number: [phone] [facility] 03-07-2025 Miscellaneous Notes Talked to staff from [facility] that patient would like to have procedure at [facility]. Requested that CD with images from [facility] be sent to [facility]. Staff will let Farideh know- she does scheduling/arranges procedures for residents. [facility] number: [phone] documented in this encounter [facility] 03-07-2025 History of Present illness Narrative Images from the original note were not included. JOE Burks CNP 03/07/2025 9:15 AM Urology Office Visit [facility] [address], [address] [facility] [id number] PATIENT NAME: Anmol Franco Given DATE OF : 1960 REFERRING PROVIDER: No ref. provider found PCP: Tab Dupont TODAY'S DATE: 03/07/2025 Visit type: Established patient HPI: Anmol is a 64 y.o. male who presents today with chief complaints of: Chief Complaint Patient presents with Nephrolithiasis 04/14/2024 underwent Cystoscopy pyelogram bilateral stent change Santana insertion with Dr Patel for fungus ball/stone in bladder 05/05/2024 underwent Cystoscopy pyelogram litholapaxy of large bladder stone left ureteroscopy with replacement of left stent, right stent change with Dr Patel Did not have any follow up for stent removal/exchange. Presented to OSH ER 02/16/25 unresponsive. Septic- culture w gram negative rods. Treated. Follow up outpatient with [facility] urology Patient is scheduled for surgery w Dr Maria on 03/20/25 however he prefers treatment at [facility] Will need images for surgery planning. 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 Medical History[1] Surgical History[2] Allergies[3] Physical Exam: BP 107/52 Pulse 68 Physical Exam Vitals reviewed. Constitutional: General: He is not in acute distress. Appearance: Normal appearance. He is normal weight. He is not ill-appearing. Pulmonary: Effort: Pulmonary effort is normal. Neurological: General: No focal deficit present. Mental Status: He is alert and oriented to person, place, and time. Psychiatric: Mood and Affect: Mood normal. Behavior: Behavior normal. Thought Content: Thought content normal. Judgment: Judgment normal. Pertinent Labs: CBC: Lab Results Component Value Date WBC 6.4 05/22/2024 HGB 12.8 (L) 05/22/2024 HCT 38.4 (L) 05/22/2024 MCV 91.2 05/22/2024 PLT 209 05/22/2024 CMP: Lab Results Component Value Date NA 135 05/22/2024 K 3.9 05/22/2024 CL 107 05/22/2024 CO2 22 05/22/2024 BUN 13 05/22/2024 CREATININE 0.54 (L) 05/22/2024 GLUCOSE 144 (H) 05/22/2024 ALT 22 05/22/2024 AST 25 05/22/2024 ALKPHOS 151 (H) 05/22/2024 Testosterone: No results found for: "TESTOSTERONE" PSA: No results found for: "PSA", PSATOTALIN Hemoglobin A1C: Lab Results Component Value Date HGBA1C 6.3 (H) 04/15/2024 Urinalysis: Lab Results Component Value Date COLORU Yellow 05/18/2024 CLARITYU Turbid (A) 05/18/2024 KETONESU Negative 05/18/2024 PROTUR 50 (A) 05/18/2024 UROBILINOGEN Normal 05/18/2024 Urine Culture: Lab Results Component Value Date URINECX >100,000 CFU/mL Proteus mirabilis (A) 05/18/2024 Imaging and results/record review: Imagin02/16/25 CT abdomen pelvis w contrast IMPRESSION: 1. Bilateral ureteral stents with the right proximal end coiled in a upper pole calyx and the left proximal end coiled in a upper pole calyx. The right and left distal ends are coiled in the urinary bladder. 2. Left kidney shows slight delayed nephrogram with mild to moderate hydronephrosis and mild left hydronephrosis. 3. Left renal stones with largest measuring 1.1 cm lower pole. No left ureteral stones. 4. Mild bilateral urothelial thickening and enhancement of the right and left renal pelvises left greater than right and the left ureter which could be of infectious or inflammatory etiology versus changes from a recently passed stone. 5. Urinary bladder is nondistended with indwelling Santana catheter and a couple small foci of nondependent gas. There is bladder wall thickening which could be related to decompressed state versus cystitis in the appropriate clinical setting, correlate for cystitis. 6. Enteric tube present with the tip above the gastroesophageal junction which needs advanced. 7. Wall thickening of the distal sigmoid colon and rectum suspicious for proctocolitis. 8. Details above. 9. Follow-up as indicated. [place] Supervisor: PSCB Transcribe Date/Time: Feb 16 2025 10:02P Dictated by : CORBIN PERRY MD This examination was interpreted and the report reviewed and electronically signed by: CORBIN PERRY MD on Feb 16 2025 10:34PM EST Narrative * * *Final Report* * * DATE OF EXAM: Feb 16 2025 8:33PM [facility] 0530 - CT ABD/PEL W IVCON / PROCEDURE REASON: Abdominal abscess/infection suspected * * * * Physician Interpretation * * * * EXAMINATION: CT ABDOMEN AND PELVIS WITH IV CONTRAST CLINICAL HISTORY: PATIENT/TECHNOLOGIST PROVIDED HISTORY: unresponsive, history of spinal cord injury CLINICAL INFORMATION ( PROVIDED BY ORDERING CLINICIAN) : Abdominal abscess/infection suspected TECHNIQUE: CT of the abdomen and pelvis was performed using standard technique, scanning from just above the dome of the diaphragm to the symphysis pubis. Coronal and sagittal reconstructed images generated. MQ: CTAP_3 Contrast: IV: 100 ml of Omnipaque 350 Oral: None CT Radiation dose: Integrated Dose-length product (DLP) for this visit = 3742 mGy*cm. CT Dose Reduction Employed: Automated exposure control(AEC) and iterative recon COMPARISON: 05/02/2023 and 04/23/2023. RESULT: Liver: Subcentimeter subtle hypodensity left lobe (3:28) too small to accurately characterize. No mass. Mild periportal edema. Biliary: No bile duct dilation. Mildly distended with no calcified gallstones identified. Spleen: No mass. Enlarged measuring approximately 15 cm in craniocaudal length. Pancreas: Predominantly atrophic. Multiple scattered calcifications most likely the sequela of chronic pancreatitis. Adrenals: No mass. Kidneys: Bilateral ureteral stents with the right proximal end coiled in a upper pole calyx and the left proximal end coiled in a upper pole calyx. The right and left distal ends are coiled in the urinary bladder. Right kidney enhances in a normal fashion with no hydronephrosis, renal or ureteral stones. Left kidney shows slight delayed nephrogram with mild to moderate hydronephrosis and mild left hydronephrosis. There are left renal stones with largest measuring 1.1 cm lower pole. No left ureteral stones. There is mild bilateral urothelial thickening and enhancement of the right and left renal pelvises left greater than right and the left ureter. GI tract: Enteric tube present with the tip above the gastroesophageal junction which needs advanced. No dilation. The appendix appears unremarkable. Moderate amount of scattered colonic stool within segments of the large bowel. There is wall thickening of the distal sigmoid colon and rectum. Lymph nodes: No lymphadenopathy identified. Mesentery/Peritoneum: No free air. No ascites. Retroperitoneum: No mass. Vasculature: - Abdominal aorta and iliac arteries: Atherosclerotic calcifications without aneurysm. - Celiac and SMA: Patent. - Portal venous system (SMV, splenic vein, portal vein and branches): Patent. - Hepatic veins: Incompletely opacified, likely due to early phase of enhancement. -Retroaortic left renal vein. Pelvis: Urinary bladder is nondistended with indwelling Santana catheter and a couple small foci of nondependent gas. There is bladder wall thickening which could be related to decompressed state versus cystitis in the appropriate clinical setting. Bones: Osteopenia. Degenerative changes. Postsurgical changes of the lumbar spine including posterior fusion rods spanning from T12 through L5 and pedicle screws at T12, L1, L4 and L5. Unchanged remote chronic compression deformities L2 and L3. Stable heterotopic bone formation along the anterior left hip capsule. Lower thorax: A chest CT performed will be reported separately. Localizer images: No additional findings Other results/records reviewed: N/A Assessment and Plan: Diagnosis Plan 1. Ureteral stent present 2. Kidney stone 3. Hydronephrosis, unspecified hydronephrosis type PLAN: - Continue tamsulosin 0.4 mg daily - Will work on getting images from [facility] - Anticipate procedure with stent exchange (ESWL vs laser litho). Discussed risk and benefits of both procedures with patient. Agreeable to proceed with whichever procedure is indicated from imaging and review with surgeon. All patient questions answered. Patient voiced understanding. Patient agreed with treatment plan. Discussed adverse effects and side effects of medication treatment. Follow up: No follow-ups on file. JOE Burks CNP [facility] Please note that portions of this chart were dictated using [employer] electronic voice recognition software. It is possible that typos and/or omissions and/or substitutions of words and/or phrases may exist, which may alter the intended meaning of the dictating provider. [1] Past Medical History: Diagnosis Date Abnormal posture Abscess, perineum Anemia BPH (benign prostatic hyperplasia) Chronic back pain Hematuria Hip sprain Hyperlipidemia Hypertension Major depressive disorder, single episode, unspecified MRSA (methicillin resistant staph aureus) culture positive spine 2021 Muscle wasting and atrophy, not elsewhere classified, left lower leg Muscle weakness (generalized) Neuropathy Obstructive and reflux uropathy, unspecified Osteoarthritis Other abnormalities of gait and mobility Other reduced mobility Paraplegia (HCC) Sciatica Spinal stenosis of lumbar region with neurogenic claudication Type 2 diabetes mellitus without complication (CMS/HCC) (HCC) Urinary calculus, unspecified UTI (urinary tract infection) [2] Past Surgical History: Procedure Laterality Date ANKLE SURGERY Right He has a titanium plate to the right ankle KNEE SURGERY Left ACL KNEE SURGERY Left removal of screw LAMINECTOMY Left 10/24/2020 LEFT BILATERAL L2-3-4-5 DECOMPRESSION performed by Opal Vigil MD at [facility] OR ORTHOPEDIC SURGERY Right removal of hardware ankle US PLACE URETAL STENT PERC PRE-EXIST TRACT S&I (HISTORICAL) Bilateral 04/14/2024 Dr. Patel/Bashir [3] No Known Allergies documented in this encounter [facility] 03-07-2025 Instructions JOE Burks CNP - 03/07/2025 9:00 AM EDT Need images from [facility] on disc brought to office for review in order for patient to have ureteral stent treatment at [facility]. Patient prefers [facility]. CT abdomen/pelvis 5/15/25 XR abdomen 02/16/25 and 02/17/25 Planning for ESWL vs laser litho w stent exchange. documented in this encounter [facility] 02-22-2025 Note HNO ID: [id number] Author: JESSICA CLEMENT RPh Service: Pharmacy Author Type: Pharmacist Type: Plan of Care Filed: 02/22/2025 15:28 Note Text: DISCHARGE MEDICATION REVIEW BY PHARMACY Patient Name: Anmol Given Account #: Data Unavailable Admission Date: 02/16/2025 Date of Contact: February 22, 2025 Time of Contact: 3:26 PM Medication list was reviewed by a Pharmacist for drug interactions or drug related problems:Yes Below is a summary of pharmacist recommendations discussed with LIP: No recommendations at this time from discharge medication list. Jessica Clement RPh Pager: [phone] 02/22/2025 3:26 PM Medication List START taking these medications amoxicillin 500 mg capsule Commonly known as: AMOXIL Take 2 capsules by mouth every 8 hours for 9 days. apixaban 5 mg tab(s) Commonly known as: ELIQUIS Take 1 tablet by mouth two times a day. cefdinir 300 mg capsule Commonly known as: OMNICEF Take 1 capsule by mouth two times a day for 9 days. midodrine 10 mg tablet Commonly known as: PROAMATINE Take 1 tablet by mouth every 8 hours. senna-docusate 8.6-50 mg per tablet Commonly known as: SENNA-S Take 2 tablets by mouth two times a day. sulfamethoxazole-trimethoprim 800-160 mg per tablet Commonly known as: BACTRIM DS Take 1 tablet by mouth two times a day for 9 days. CHANGE how you take these medications aspirin 81 mg chewable tablet 1 tablet by ORAL/FEEDING TUBE route once daily. What changed: Another medication with the same name was removed. Continue taking this medication, and follow the directions you see here. insulin glargine 100 unit/mL (3 mL) Inject 20 Units subcutaneously every morning. What changed: how much to take insulin lispro 100 unit/mL injection Commonly known as: HumaLOG Inject 0-15 Units subcutaneously with meals and at bedtime. ADMINISTER CORRECTIONAL INSULIN REGARDLESS OF MEAL OR NUTRITION INTAKE Scale 3 If Blood Glucose (mg/dL) is: Less than 110 Give 0 units 111-150 Give 1 unit 151-200 Give 3 units 201-250 Give 6 units 251-300 Give 9 units 301-350 Give 12 units 351-400 Give 15 units Greater than 400 Give 15 units and Notify Provider Notify provider if 2 consecutive blood glucose values in the previous 24 hours are greater than 250 mg/dL and there have been no changes to the insulin regimen in the previous 24 hours. What changed: how much to take when to take this additional instructions CONTINUE taking these medications cyclobenzaprine 10 mg tablet Commonly known as: FLEXERIL Take 1 tablet by mouth three times daily. CYMBALTA 30 mg capsule Generic drug: DULoxetine docusate sodium 100 mg capsule Commonly known as: COLACE Take 1 capsule by mouth twice daily. ferrous sulfate 325 mg (65 mg iron) tablet Mirtazapine 7.5 mg tablet Commonly known as: Remeron oxyCODONE 15 mg immediate release tablet Commonly known as: ROXICODONE polyethylene glycol 3350 17 gram packet pregablin 200 mg capsule Commonly known as: LYRICA tamsulosin 0.4 mg Commonly known as: FLOMAX Take 1 capsule by mouth once daily. therapeutic multivitamin-minerals 9 mg iron-400 mcg tablet Commonly known as: THERA-M PLUS TRADJENTA 5 mg Tab Generic drug: linaGLIPtin TUMS 500 mg Chew Generic drug: calcium carbonate STOP taking these medications potassium chloride ER 20 mEq tablet Commonly known as: KLOR-CON SEMGLEE(INSULIN GLARGINE-YFGN) 100 unit/mL solution Generic drug: insulin glargine-yfgn [facility] 02-22-2025 Note HNO ID: [id number] Author: ANDREA PALENCIA RN Service: Care Management Author Type: Registered Nurse Type: Care Mgt Progress Note Filed: 02/22/2025 15:26 Note Text: CARE MANAGEMENT DISCHARGE NOTE SERVICE DATE: February 22, 2025 SERVICE TIME: 3:24 PM Admission Date: 02/16/2025 LOS: 5 days Discharge Arrangement Discharge Arrangement: Extended Care Facility Services Arranged Provider Name: [place] alison Delvalle Caregiver Assessment Caregiver is ready, willing and able to meet the patient's needs as recommended by the inter-professional team: Yes Name of Caregiver: Facility staff Transportation Arrangements Transportation Arrangements: Ambulance Transportation Agency and Phone #:: [facility] ( [facility] ) [phone] / [phone] Date of Trip: 02/22/25 Time of Trip: 1999 Type of Service: BLS Non-emergency Is Patient Medicaid Pending?: No Was transportation financial coverage discussed with family?: Patient Call Center Supervisor Location: [facility] Destination: Return to [facility] Financial Care Management Responsibility: None Handoff Communication: Additional Information: Met with pt and he is agreeable to return to [facility]. Will D/C today at 8 pm via cot with [employer].. D/C paperwork sent electronically and RN to call N2N report. Pt stated he called his brother re: the D/C and time of return to [facility]. SIGNATURE: Andrea Palencia RN PATIENT NAME: Anmol Given DATE: February 22, 2025 TIME: 3:24 PM [facility] 02-22-2025 Note HNO ID: [id number] Author: ANDREA PALENCIA RN Service: Care Management Author Type: Registered Nurse Type: Care Mgt Progress Note Filed: 02/22/2025 15:22 Note Text: CARE MANAGEMENT PROGRESS NOTE SERVICE DATE: 02/22/2025 SERVICE TIME: 3:22 PM LOS: 5 days IMM Follow Up Copy Given: Yes Copy given to:: Patient Wet Cotton Feeder Name/Relationship: Ilir Jonas Method: In Person Met with pt in room and explained the IMM, he states he understands. He is agreeable to D/C. SIGNATURE: Andrea Palencia RN PATIENT NAME: Anmol Given DATE: February 22, 2025 TIME: 3:22 PM [facility] 02-22-2025 Note HNO ID: [id number] Author: ANDREA PALENCIA RN Service: Care Management Author Type: Registered Nurse Type: Care Mgt Progress Note Filed: 02/22/2025 13:53 Note Text: CARE MANAGEMENT PROGRESS NOTE SERVICE DATE: 02/22/2025 SERVICE TIME: 1:53 PM LOS: 5 days IMM Follow Up Copy Given: Yes Copy given to:: Patient Wet Cotton Feeder Wet Cotton Feeder Name/Relationship: Ilir Jonas Method: By Phone SIGNATURE: Andrea Palencia RN PATIENT NAME: Anmol Given DATE: February 22, 2025 TIME: 1:53 PM [facility] 02-21-2025 Note HNO ID: [id number] Author: ANDREA PALENCIA RN Service: Care Management Author Type: Registered Nurse Type: Care Mgt Progress Note Filed: 02/21/2025 15:41 Note Text: CARE MANAGEMENT PROGRESS NOTE SERVICE DATE: 02/21/2025 SERVICE TIME: 3:39 PM LOS: 4 days D/C plan to return To [place] at [facility] when medically ready. D/C packet created and will need cot transport when ready. SIGNATURE: Andrea Palencia RN PATIENT NAME: Anmol Given DATE: February 21, 2025 TIME: 3:39 PM [facility] 02-21-2025 Note HNO ID: [id number] Author: BRIA SHER MD Service: Hospital Medicine Author Type: Physician Type: Progress Notes Filed: 02/21/2025 13:23 Note Text: DEPARTMENT OF HOSPITAL MEDICINE Hospital Medicine/Primary Attending: Bria Sher MD NIGHT AND WEEKEND COVERAGE: After 7pm please page [phone] MEDICATIONS: Current Facility-Administered Medications Medication Dose Route Frequency NaCl 0.9% iv flush bag 20 mL INTRAVENOUS PRN tamsulosin 0.4 mg cap(s) (FLOMAX) 0.4 mg ORAL DAILY dextrose 15 gram/32 mL 15 g (TRUEPLUS) 15 g ORAL PRN Or glucagon 1 mg injection 1 mg INTRAMUSCULAR PRN Or dextrose 10% iv bolus 12.5 g INTRAVENOUS PRN aspirin 81 mg chewable tab(s) 81 mg ORAL/FEEDING TUBE DAILY polyethylene glycol 3350 17 g packet 17 g ORAL DAILY insulin glargine 20 Units pen (long acting) 20 Units SUBCUTANEOUS DAILY (8 AM) senna-docusate 8.6-50 mg 2 tablet (SENNA-S) 2 tablet ORAL BID pregabalin 200 mg cap(s) (LYRICA) 200 mg ORAL BID oxyCODONE IR 10-15 mg tab(s) (ROXICODONE) 10-15 mg ORAL q 6 H PRN cyclobenzaprine 10 mg tab(s) (FLEXERIL) 10 mg ORAL TID PRN ferrous sulfate 325 mg tab(s) 325 mg ORAL DAILY DULoxetine 30 mg cap(s) (CYMBALTA) 30 mg ORAL DAILY phenol 1 spray (CHLORASEPTIC) 1 spray MUCOUS MEMBRANE (TOPICAL MOUTH AND THROAT) q 2 H PRN Or benzocaine-menthol 1 lozenge (CEPACOL) 1 lozenge MUCOUS MEMBRANE (TOPICAL MOUTH AND THROAT) q 2 H PRN mupirocin 2 % 0.5 g nasal ointment (BACTROBAN) 0.5 g NASAL BID mirtazapine 7.5 mg (REMERON) 7.5 mg ORAL AT BEDTIME insulin lispro injection (rapid acting) (ADMElog) SUBCUTANEOUS w MEALS AND HS apixaban 5 mg tab(s) (ELIQUIS) 5 mg ORAL BID midodrine 20 mg tab(s) (PROAMATINE) 20 mg ORAL q 8 H piperacillin-tazobactam iv piggyback 3.375 g in dextrose (iso-osmotic) 50 mL (ZOSYN) 3.375 g INTRAVENOUS q 6 H DATA: Diagnostic tests reviewed for today's visit: Lab data: CBC: Recent Labs 02/21/25 0454 02/19/25 0419 02/18/25 0420 02/17/25 1009 02/17/25 0225 02/16/25 1922 WBC 9.99 9.94 13.39* 14.96* 19.64* 10.29 HB 12.3* 11.1* 11.3* 13.1 11.9* 11.6* HCT 38.6* 32.5* 33.9* 41.4 36.6* 34.9* PLT 134* 87* 69* 64* 93* 108* MCV 93.7 89.3 90.9 94.5 92.7 90.6 RDWCV 14.9 14.8 14.9 15.0 14.8 14.5 NEUTP -- -- -- -- -- 90.0 ABSNEUT -- -- -- -- -- 9.26* LYMPHP -- -- -- -- -- 3.0 MONOP -- -- -- -- -- 4.0 COAG: Recent Labs 02/19/25 1051 02/19/25 0419 02/18/25201102/18/25 1300 02/18/25 0643 02/18/25 0021 02/17/25 1728 02/17/25 1644 02/17/25 1009 APTT 68.5* 71.1* 40.2* 35.5* 33.2* 51.0* 38.7* EXTREMELY ABNORMAL RESULT. No clot detected at 320 seconds. Refer to anticoagulation nomogram for further actions.* 36.7* INR -- -- -- -- -- -- -- -- 1.2 BMP: Recent Labs 02/21/2545302/20/2553802/19/2541802/18/2541902/17/2522402/16/251921 GLUC 162* 90 115* 177* 225* 131* NA 135* 141 137 135* 132* 136 K 4.1 4.1 3.7 3.9 4.7 4.4 CHLOR 105 110* 106 104 104 105 CO2 21* 23 21* 20* 17* 17* ANION 9 8 10 11 11 14 BUN 21 25* 36* 37* 34* 33* CREAT 0.58* 0.60* 0.64* 1.04 1.90* 2.35* CHEM: Recent Labs 02/21/2545302/20/2553802/19/2541802/18/2541902/17/2522402/16/251921 ALB 2.5* 2.3* 2.3* 2.3* 2.5* 2.3* TPROT 6.6 5.7* 5.5* 5.8* 6.0* 5.9* CA 8.2* 7.7* 7.8* 7.8* 8.2* 7.7* MG -- -- -- 2.3 -- 1.6* HEPATIC: Recent Labs 02/21/2545302/20/2553802/19/2541802/18/2541902/17/2522402/16/251921 ALKPHOS 121* 107 112 115* 174* 286* ALT 15 17 21 25 21 17 AST 23 22 25 38 41* 31 TBILI 0.8 0.8 0.5 0.6 0.9 0.9 URINALYSIS: Recent Labs 02/16/252106 SPGR 1.037* UGLUC Negative UBILI Negative UKET Negative UHB 3+* UPROT 2+* UWBC >25 /HPF* CARDIAC: No results for input(s): "PBNP" in the last 168 hours. Problem List Septic shock (HCC) (POA: Yes) Pyelitis (POA: Yes) Presence of indwelling Santana catheter (POA: Yes) Pressure injury of left buttock, unstageable (HCC) (POA: Status not on file) Gram negative septicemia (HCC) (POA: Status not on file) Bacteremia due to Enterococcus (POA: Status not on file) Fever, unspecified (POA: Status not on file) Leukocytosis (POA: Status not on file) Altered mental status (POA: Status not on file) Paraplegia (HCC) (POA: Status not on file) Proctocolitis (POA: Status not on file) Encounter for long-term (current) use of antibiotics (POA: Status not on file) Proteus mirabilis infection (POA: Status not on file) PHYSICAL EXAM: BP 99/57 Pulse 75 Temp (Src) 98.1 (Oral) Resp 18 Ht 5' 11" (1.80m) Wt 216 lb 0.8 oz (98.0kg) SpO2 92% BMI 30.15 kg/(m2). O2 Therapy: Room Air Follow up : Pt seen and examined. Doing well overall, appetite improving. Denies new complaints. Constitutional - Vitals as above, NAD Respiratory - Clear to auscultate both sides. No crackles, wheezes or rales, No labored breathing noted CVS- RRR, no murmur/gallop/rub, pulse 2+ GI- NTND, bowel sounds (more content not included)... [facility] 02-20-2025 Note HNO ID: [id number] Author: YOANA OROSCO, LIBRADO Service: ? Author Type: Registered Nurse Type: Nursing Progress Note Filed: 02/20/2025 18:07 Note Text: Other: Report called to [id number] RN. [facility] 02-20-2025 Note HNO ID: [id number] Author: GAYLE SCOTT MD Service: Infectious Disease Author Type: Physician Type: Progress Notes Filed: 02/20/2025 17:14 Note Text: Progress Notes INFECTIOUS DISEASE February 20 at 1440 ASSESSMENT: #-Status post septic shock-off pressors-with septicemia from gram-negative rods and strep/Enterococcus bacteria-suspect due to bilateral pyelitis with renal pelvis enhancement, stents, neurogenic bladder which could have had cystitis that ascended from his prior spinal cord injury. #-Infections in blood and urine with Proteus mirabilis, Providencia, Citrobacter, Enterococcus faecalis #-Resistance to multiple antibiotics although nothing is an ESBL #-Complicated UTI as source based on patient with chronic Santana catheter due to paraplegia and neurogenic bladder and because of bacteremia suspected pyelonephritis. Also with stents but they may not have been the initial source. Discussed with urology and stents can be removed when patient stable enough. Apparently he has had them in quite a long time. #-Presence of chronic Santana catheter due to urinary retention/neurogenic bladder issues-this was changed although I think after the culture was obtained. #-Decreased high fever from the above #-Decreased leukocytosis from the above #-Improved renal insufficiency antibiotic dosing #-Antibiotic monitoring-tolerates #-Discussed issues with patient; nursing I have performed the following services under complex antimicrobial therapy counseling and treatment: Engaged in complex medical decision-making associated with antimicrobial prescribing. Counseling of patient /discussion with urology RECOMMENDATIONS: - Meropenem pending sensitivities of the Citrobacter. Hope to de-escalate to a simpler regimen. Eventual oral therapy since this looks like pyelonephritis and patient with chronic catheter. Stent change up to urology. 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 Spinal cord injury residing at [facility], presented to [facility] 02/16/2025 for unresponsiveness when normally alert and oriented x 4. Arrived only arousable to pain unable to follow commands, nonrebreather, hypotensive, tachycardic. On their exam described as acute distress, ill-appearing, dry mucous membranes, tachycardia, hypotensive. Required intubation and ventilation in the ED, somewhat high lactate. Admitted to ICU service due to shock. Per ICU history patient had L2/L3 epidural abscess in January 2022 with underlying spinal stenosis, MRSA bacteremia ended up paraplegic. Also history of ESBL Klebsiella UTI. Chronic Santana catheter. In April 2024 bilateral hydronephrosis with ureteral stent placement. Imaging with chronic sacral osteomyelitis due to immobility. ICU listed in the septic shock from multiple sources including UTI, left upper lobe GGO for possible pneumonia, left lower lobe mucous plugging and possible postobstructive CAP. Chronic sacral osteomyelitis although that is usually pressure related. Today urology was consulted due to neurogenic bladder with chronic Santana, also for the urosepsis with bilateral ureteral stents and mild to moderate hydronephrosis and a 1.1 cm left renal stone. They noted the bilateral stents with mild left hydronephrosis with curling in the upper pole but recommended no acute surgical intervention. Once patient stable they would do bilateral retrograde stent removal. Patient is wide-awake and answering questions and states he was completely out of it when he woke up in the hospital and does not remember what happened. He gives permission for his daughter to be in the room and she states that although she was not at the care home she was called and told he was mentally out of it and ill so they brought him in. She did state that his urine was pretty cloudy. He has a chronic Santana catheter due to paraplegia and neurogenic bladder and she states it supposed to be changed every other week. She is not sure if it was. NKDA Active Antimicrobials (From admission, onward) Start Stop 02/20/25 1500 piperacillin-tazobactam iv piggyback 3.375 g in dextrose (iso-osmotic) 50 mL (ZOSYN) 3.375 g, INTRAVENOUS, EVERY 6 HOURS -- 02/17/25 1430 mupirocin 2 % 0.5 g nasal ointment (BACTROBAN) 0.5 g, NASAL, 2 TIMES DAILY 02/22/25 0859 Immunosuppressants: None known Current other medications reviewed. Current Facility-Administered Medications Medication Dose Route Frequency NaCl 0.9% iv flush bag 20 mL INTRAVENOUS PRN phentolamine injection 5 mg (REGITINE) Extravasation Antidote 5 mg SUBCUTANEOUS PRN tamsulosin 0.4 mg cap(s) (FLOMAX) 0.4 mg ORAL DAILY dextrose 15 gram/32 mL 15 g (TRUEPLUS) 15 g ORAL PRN Or glucagon 1 mg injection 1 mg INTRAMUSCULAR PRN Or d (more content not included)... [facility] 02-20-2025 Note HNO ID: [id number] Author: PENNY VILLASEÑOR RN Service: Care Management Author Type: Registered Nurse Type: Care Mgt Progress Note Filed: 02/20/2025 16:13 Note Text: CARE MANAGEMENT PROGRESS NOTE SERVICE DATE: 02/20/2025 SERVICE TIME: 4:11 PM LOS: 3 days Needs Prior to Discharge: Discharge Transportation DC plan: [place]. Pt is LTC and a bed hold. Updates to facility. Met with pt and provided update. Pt agreeable to return. SIGNATURE: Penny Villaseñor RN PATIENT NAME: Anmol Given DATE: February 20, 2025 TIME: 4:11 PM [facility] 02-20-2025 Note HNO ID: [id number] Author: ELIZABETH SOLER MD Service: Critical Care Author Type: Physician Type: Progress Notes Filed: 02/20/2025 13:05 Note Text: [facility] STAFF PHYSICIAN NOTE OF PERSONAL INVOLVEMENT IN CARE I have reviewed the documentation by the resident/ AALIYAH and I personally participated in the thomas components. I have discussed the case and management of the patient's care. The following comments revise or confirm relevant thomas components of the note. 64 y/o M with extensive medical hx who presented from care home for AMS. In the ED, was obtunded and intubated. Found to be hypotensive and tachycardic, eventually requiring vasopressors. Workup revealed MK, UTI, and multiple other findings. He has chronic Santana catheter due to paraplegia and neurogenic bladder. Also has ureteral stents. CT with multiple findings including coiling of stents and bibasilar lung opacities. He was admitted to the MICU with septic shock. Extubated on 02/17/2025. Kept in the ICU overnight for borderline blood pressures. No acute events overnight. Blood pressure has improved. He remains on midodrine. On room air. Afebrile. He wants to leave the hospital and have a cigarette. General: Awake, alert, conversant Cardiovascular: Sinus rhythm Respiratory: Bilateral CTA Abdomen: Soft, nontender, nondistended Extremities: Edema-1+ bilaterally Neurologic: Follows request, squeeze with both hands Hemoglobin (g/dL) Date Value 02/19/2025 11.1 11/25/2021 14.0 Hematocrit (%) Date Value 02/19/2025 32.5 11/25/2021 41.1 WBC (k/uL) Date Value 02/19/2025 9.94 11/25/2021 13.30 Platelet Count (k/uL) Date Value 02/19/2025 87 11/25/2021 275 Latest Ref Rng AND Units 02/20/2025 BMP Glucose 74 - 99 mg/dL 90 BUN 9 - 24 mg/dL 25 Creatinine 0.73 - 1.22 mg/dL 0.60 Sodium 136 - 144 mmol/L 141 Potassium 3.7 - 5.1 mmol/L 4.1 Chloride 98 - 107 mmol/L 110 CO2 22 - 30 mmol/L 23 Anion Gap 8 - 15 mmol/L 8 Calcium 8.5 - 10.2 mg/dL 7.7 EGFR >=60 mL/min/1.73m? 108 IMPRESSION: #Septic shock, improved #Polymicrobial bacteremia: E faecalis, Proteus and providencia, citrobacter # History of Proteus, Providencia and Morganella bacteremia in April 2024 #UTI in setting of neurogenic bladder/chronic santana #Acute hypoxemic respiratory failure s/p extubation 02/17 #A.Fib w/ RVR, now in sinus rhythm #Acute toxic metabolic encephalopathy - Resolved #MK - Resolved #Bibasilar consolidations - suspect more consistent with atelectasis #Renal calculi present #Hx of bilateral hydro #Hx of paraplegia #Hx of L2-L3 spinal abscess with multiple complications #Hx of DM #Hyperglycemia #Chronic sacral osteomyelitis #Acute proctocolitis PLAN: Continue antibiotics, on meropenem, per ID Subcutaneous insulin On midodrine, continue 20 mg 3 times daily, wean as blood pressure improves Urology input appreciated, follow up at [facility] urology Remains off of amiodarone, start low-dose beta-blockers if necessary Continue Eliquis IV fluids as needed Follow-up with cardiology outpatient Supportive care Transfer to floor Discussed with staff/ patient/ family Parts of the HPI, ROS, exam and impression/plan may have been copied from my prior personal clinical note and remain pertinent. Current changes have been made and are as documented. Any un-relevant data was deleted. SIGNATURE: Elizabeth Soler MD [facility] TIME of SERVICE: 8:32 AM [facility] 02-20-2025 Note HNO ID: [id number] Author: ELIZABETH SOLER MD Service: Critical Care Author Type: Physician Type: Progress Notes Filed: 02/20/2025 15:25 Note Text: MICU PROGRESS NOTE PATIENT NAME: Anmol Reynolds REASON FOR ADMISSION: Septic shock (HCC) LOS: 3 Subjective HPI Mr. Anmol Reynolds is a 64 year old male with PMH: L2-L3 epidural abscess 01/14/22 C/b spinal stenosis, MRSA bacteremia, paraplegia, and chronic santana Hx ESBL klebsiella pneumoniae UTI S/p L2-L3 laminectomy and posterior fusion T2DM, last HbA1C 6.5 - 01/23/2022 Bilateral hydronephrosis s/p ureteral stent placement April 2024 Chronic sacral osteomyelitis Chronic normocytic anemia Chronic hematuria The patient initially presented to the [facility] ED on February 16, 2025 after being [facility] un[facility]. MICU was consulted for septic shock, altered mental status, and failure to protect airway requiring intubation. Hospital course: Patient admitted to MICU for septic shock requiring Levophed, was started on broad-spectrum antibiotics with meropenem and vancomycin with ID consult. He also had acute hypoxemic respiratory failure in setting of septic shock, MK. Imaging showed hydronephrosis and culture data was remarkable for gram neg rods. Urology was consulted who did not recommend any surgical intervention and recommended patient to follow-up with urology at [facility]. Patient was extubated on 02/17 successfully. Course was complicated with A-fib with RVR for which she was started on amiodarone drip and heparin. Per ID, vancomycin was discontinued and patient was continued on meropenem INTERVAL EVENTS Overnight events: Patient seen and evaluated at bedside, well saturated in RA. Patient reported feeling fine today without active complaint. Today's pertinent results include: CMP WNL Imaging: - Telemetry: - NSR Microbiology: - Sputom: MRSA - BCX: Enterococcus faecalis, Proteus Consultation updates, all recs are appreciated: - Infectious disease - Urology Objective OBJECTIVE BEGIN BP 85/53 Pulse 71 Temp 36.8 ?C (98.2 ?F) (Oral) Resp 19 Ht 180.3 cm (5' 11") Wt 96.6 kg (212 lb 15.4 oz) SpO2 92% BMI 29.70 kg/m? Temp (24hrs), Av.7 ?C (98.1 ?F), Min:36.6 ?C (97.9 ?F), Max:36.9 ?C (98.4 ?F) Body mass index is 29.7 kg/m?., Hemoglobin A1C (%) Date Value 01/23/2022 6.5 10/25/2020 12.1 Intake/Output Summary (Last 24 hours) at 02/20/2025 0824 Last data filed at 02/20/2025 0540 Gross per 24 hour Intake 813 ml Output 1570 ml Net -757 ml LABORATORY: BLOOD GAS: CBC: Recent Labs 02/19/25 0419 02/18/25 0420 02/17/25 1009 02/17/2522402/16/251921 WBC 9.94 13.39* 14.96* 19.64* 10.29 HB 11.1* 11.3* 13.1 11.9* 11.6* HCT 32.5* 33.9* 41.4 36.6* 34.9* PLT 87* 69* 64* 93* 108* MCV 89.3 90.9 94.5 92.7 90.6 RDWCV 14.8 14.9 15.0 14.8 14.5 NEUTP -- -- -- -- 90.0 ABSNEUT -- -- -- -- 9.26* LYMPHP -- -- -- -- 3.0 MONOP -- -- -- -- 4.0 COAG: Recent Labs 02/19/25 1051 02/19/25 0419 02/18/25201102/18/25 1300 02/18/25 0643 02/18/25 0021 02/17/25 1728 02/17/25 1644 02/17/25 1009 APTT 68.5* 71.1* 40.2* 35.5* 33.2* 51.0* 38.7* EXTREMELY ABNORMAL RESULT. No clot detected at 320 seconds. Refer to anticoagulation nomogram for further actions.* 36.7* INR -- -- -- -- -- -- -- -- 1.2 CMP: Recent Labs 02/20/25 0539 02/19/25 0419 02/18/25 0420 02/17/2522402/16/25 1922 GLUC 90 115* 177* 225* 131* NA 141 137 135* 132* 136 K 4.1 3.7 3.9 4.7 4.4 CHLOR 110* 106 104 104 105 CO2 23 21* 20* 17* 17* ANION 8 10 11 11 14 BUN 25* 36* 37* 34* 33* CREAT 0.60* 0.64* 1.04 1.90* 2.35* ALB 2.3* 2.3* 2.3* 2.5* 2.3* TBILI 0.8 0.5 0.6 0.9 0.9 ALKPHOS 107 112 115* 174* 286* AST 22 25 38 41* 31 ALT 17 21 25 21 17 TPROT 5.7* 5.5* 5.8* 6.0* 5.9* MG -- -- 2.3 -- 1.6* URINALYSIS: Recent Labs 02/16/25 2107 SPGR 1.037* UGLUC Negative UBILI Negative UKET Negative UHB 3+* UPROT 2+* UWBC >25 /HPF* Cardiac:No results for input(s): "CKTEST", "CKMB", "CKMBP", "TROPONIN", "BNP" in the last 168 hours. Microbiology: Positive Micro-30 Days Procedure Component Value Units Date/Time Respiratory Culture and Stain [[id number]] (Abnormal) (Susceptibility) Collected: 02/17/25 1010 Order Status: Completed Specimen: Sputum Updated: 02/20/25 0755 Culture, Respiratory Few Normal respiratory gsoia present Rare Methicillin-RESISTANT Staphylococcus aureus (MRSA) Gram Stain Few Mixed oral gosia Rare Polymorphonuclear leukocytes Few Epithelial cells Narrative: No Pseudomonas aeruginosa isolated. Susceptibility Methicillin-RESISTANT Staphylococcus aureus (MRSA) MINIMUM INHIBITORY CONCENTRATION ([place]) Clindamycin Susceptible [1] Erythromycin Resistant Gentamicin Susceptible Linezolid Susceptible Oxacillin Resistant [2] Rifampin Susceptible [3] Tetracycline Resistant Trimeth sulfameth Resistant Vancomycin S (more content not included)... [facility] 02-19-2025 Note HNO ID: [id number] Author: GAYLE SCOTT MD Service: Infectious Disease Author Type: Physician Type: Plan of Care Filed: 02/19/2025 18:36 Note Text: ID Continuing meropenem due to multiple gram-negative's and Enterococcus faecalis in blood and urine culture Gayle Scott MD 02/19/2025 6:36 PM pgr [id number] [facility] 02-19-2025 Telephone encounter Note Needs outpt cysto, pyelograms, bilateral stent change vs removal in 2-3 weeks. [facility] Work Phone: 02-19-2025 Note HNO ID: [id number] Author: RADHA GRAHAM RPh Service: Pharmacy Author Type: Pharmacist Type: Plan of Care Filed: 02/19/2025 13:16 Note Text: PHARMACY ANTICOAGULATION EDUCATION Patient Name: Anmol Given Account #: Data Unavailable Admission Date: 02/16/2025 7:12 PM Date of Contact: February 19, 2025 Time of Contact: 1:16 PM Patient anticipated to be discharged on Apixaban as oral anticoagulation therapy. Anticoagulant history: Patient is new to anticoagulation therapy Indication for oral anticoagulation: atrial fibrillation/atrial flutter Anticoagulant education status: Patient disposition acute rehab, SNF, LTACH, or hospice; anticoagulation education not indicated at this time. Please re-consult or contact pharmacy if inpatient anticoagulation education is needed. Radha Graham [facility] 02-19-2025 Note HNO ID: [id number] Author: ANMOL HERBERT MD Service: Urology Author Type: Resident Type: Progress Notes Filed: 02/19/2025 14:57 Note Text: Attestation signed by Anmol Herbert MD at 02/19/2025 2:57 PM Discussed with the resident and agree with resident's findings and plan as documented in the resident's note. Will arrange stent removal/change as oupt. Anmol Herbert MD UROLOGY PROGRESS NOTE PATIENT NAME: Anmol Reynolds DATE OF : 1960 ADMISSION DATE: 02/16/2025 7:12 PM Subjective Patient evaluated this morning, resting comfortably in bed. Reports no complaints overnight. Denies pain. Santana draining well. Objective VS: BP 83/53 Pulse 70 Temp 36 ?C (96.8 ?F) (Oral) Resp 18 Ht 180.3 cm (5' 11") Wt 96.6 kg (212 lb 15.4 oz) SpO2 96% BMI 29.70 kg/m? I AND O - 24hr: Intake/Output Summary (Last 24 hours) at 02/19/2025 1011 Last data filed at 02/19/2025 0800 Gross per 24 hour Intake 1989 ml Output 1365 ml Net 624 ml Physical Exam: General: Resp: Abdomen: No acute distress Normal effort Soft, nontender, nondistended : no suprapubic tenderness santana in place draining clear, yellow urine Participation of a fellow, resident, medical student, or advanced practice provider student in performing the sensitive examination was discussed with the patient or authorized pharmaceutical sales representative. The patient or authorized pharmaceutical sales representative has agreed to proceed with the sensitive examination. Labs and Imaging Studies LABS: BMP: Recent Labs 02/19/2541802/18/2541902/17/25224 NA 137 135* 132* K 3.7 3.9 4.7 CHLOR 106 104 104 CO2 21* 20* 17* BUN 36* 37* 34* CREAT 0.64* 1.04 1.90* GLUC 115* 177* 225* CBC: Recent Labs 02/19/2541802/18/2541902/17/25 1009 02/17/2522402/16/25 1922 WBC 9.94 13.39* 14.96* 19.64* 10.29 HB 11.1* 11.3* 13.1 11.9* 11.6* HCT 32.5* 33.9* 41.4 36.6* 34.9* PLT 87* 69* 64* 93* 108* Urinalysis: Specific [place], Ur Date Value Ref Range Status 02/16/2025 1.037 (H) 1.005 - 1.030 Final Glucose, Urine Date Value Ref Range Status 02/16/2025 Negative Trace, Negative Final Bilirubin, Urine Date Value Ref Range Status 02/16/2025 Negative Negative Final Ketones, Urine Date Value Ref Range Status 02/16/2025 Negative Negative, Trace Final Hemoglobin/Blood,Ur Date Value Ref Range Status 02/16/2025 3+ (A) Negative, Trace Final Protein, Urine Date Value Ref Range Status 02/16/2025 2+ (A) Trace, Negative Final Nitrites Date Value Ref Range Status 02/16/2025 Negative Negative Final WBC, Urine Date Value Ref Range Status 02/16/2025 >25 /HPF (A) 0-5 /HPF Final Urine Culture: No results found for: "URCUL" RADIOLOGY: Reviewed. Assessment/Plan ASSESSMENT AND PLAN: 64 year old male with chronic bilateral stents placed at [facility] in MAY 2024 - no acute surgical intervention - remains off levo - daily labs; cr stable - plan to follow up with [facility] urology for stent removal unless becomes unstable / concern for removal needed sooner, then we would discuss OR inpatient - appreciate ICU care - urology to sign off at this time - please reach out with any questions or concerns Tiffanie Baltazar DO Urology PGY-1 February 19, 2025 10:11 AM [facility] 02-19-2025 Note HNO ID: [id number] Author: ELIZABETH SOLER MD Service: Critical Care Author Type: Physician Type: Progress Notes Filed: 02/19/2025 11:52 Note Text: MICU PROGRESS NOTE PATIENT NAME: Anmol Given REASON FOR ADMISSION:Septic shock LOS: 2 Subjective HPI Anmol Given is a 64 year old male with PMH L2-L3 epidural abscess 01/14/22 C/b spinal stenosis, MRSA bacteremia, paraplegia, and chronic santana Hx ESBL klebsiella pneumoniae UTI S/p L2-L3 laminectomy and posterior fusion T2DM, last HbA1C 6.5 - 01/23/2022 Bilateral hydronephrosis s/p ureteral stent placement April 2024 Chronic sacral osteomyelitis Chronic normocytic anemia Chronic hematuria The patient initially presented to the [facility] ED on February 16, 2025 after being [facility] un[facility]. MICU was consulted for septic shock, altered mental status, and failure to protect airway requiring intubation. Hospital course: Patient admitted to MICU for septic shock requiring Levophed, was started on broad-spectrum antibiotics with meropenem and vancomycin with ID consult. He also had acute hypoxemic respiratory failure in setting of septic shock, MK. Imaging showed hydronephrosis and culture data was remarkable for gram neg rods. Urology was consulted who did not recommend any surgical intervention and recommended patient to follow-up with urology at [facility]. Patient was extubated on 02/17 successfully. Course was complicated with A-fib with RVR for which she was started on amiodarone drip and heparin. Per ID, vancomycin was discontinued and patient was continued on meropenem INTERVAL EVENTS Overnight insulin was changed to with meals and at bedtime Overall improved hemodynamics throughout the night and nor epi was stopped. Heart rate well-controlled. Labs this morning are remarkable for hypocalcemia with calcium of 7.8, normal kidney function, CBC showing hemoglobin of 11.1 and platelet of 87 which is improved from 69 yesterday Microbiology: Blood culture growing E faecalis, Proteus mirabilis Consultation updates, all recs are appreciated: Urology: Given pt improvement on current regimen, no plans for surgery this admission. Pt can follow up with [facility] Urology Infectious disease: Discontinue vancomycin and continue meropenem. Objective OBJECTIVE BP 83/53 Pulse 70 Temp 36.5 ?C (97.7 ?F) (Oral) Resp 18 Ht 180.3 cm (5' 11") Wt 96.6 kg (212 lb 15.4 oz) SpO2 96% BMI 29.70 kg/m? Temp (24hrs), Av.7 ?C (98.1 ?F), Min:36.5 ?C (97.7 ?F), Max:36.9 ?C (98.4 ?F) Body mass index is 29.7 kg/m?., Hemoglobin A1C (%) Date Value 01/23/2022 6.5 10/25/2020 12.1 Intake/Output Summary (Last 24 hours) at 02/19/2025 0647 Last data filed at 02/19/2025 0615 Gross per 24 hour Intake 2489.5 ml Output 1565 ml Net 924.5 ml LABORATORY: BLOOD GAS: CBC: Recent Labs 02/19/2541802/18/25 0420 02/17/25 1009 02/17/2522402/16/252 WBC 9.94 13.39* 14.96* 19.64* 10.29 HB 11.1* 11.3* 13.1 11.9* 11.6* HCT 32.5* 33.9* 41.4 36.6* 34.9* PLT 87* 69* 64* 93* 108* MCV 89.3 90.9 94.5 92.7 90.6 RDWCV 14.8 14.9 15.0 14.8 14.5 NEUTP -- -- -- -- 90.0 ABSNEUT -- -- -- -- 9.26* LYMPHP -- -- -- -- 3.0 MONOP -- -- -- -- 4.0 COAG: Recent Labs 02/19/2541802/18/25201102/18/25 1300 02/18/25 0643 02/18/25 0021 02/17/25 1728 02/17/25 1644 02/17/25 1009 APTT 71.1* 40.2* 35.5* 33.2* 51.0* 38.7* EXTREMELY ABNORMAL RESULT. No clot detected at 320 seconds. Refer to anticoagulation nomogram for further actions.* 36.7* INR -- -- -- -- -- -- -- 1.2 CMP: Recent Labs 02/19/2541802/18/2541902/17/2522402/16/251921 GLUC 115* 177* 225* 131* NA 137 135* 132* 136 K 3.7 3.9 4.7 4.4 CHLOR 106 104 104 105 CO2 21* 20* 17* 17* ANION 10 11 11 14 BUN 36* 37* 34* 33* CREAT 0.64* 1.04 1.90* 2.35* ALB 2.3* 2.3* 2.5* 2.3* TBILI 0.5 0.6 0.9 0.9 ALKPHOS 112 115* 174* 286* AST 25 38 41* 31 ALT 21 25 21 17 TPROT 5.5* 5.8* 6.0* 5.9* MG -- 2.3 -- 1.6* URINALYSIS: Recent Labs 02/16/25 2107 SPGR 1.037* UGLUC Negative UBILI Negative UKET Negative UHB 3+* UPROT 2+* UWBC >25 /HPF* Cardiac:No results for input(s): "CKTEST", "CKMB", "CKMBP", "TROPONIN", "BNP" in the last 168 hours. Microbiology: Positive Micro-30 Days Procedure Component Value Units Date/Time Respiratory Culture and Stain [[id number]] (Abnormal) Collected: 02/17/25 1010 Order Status: Completed Specimen: Sputum Updated: 02/18/25 0916 Culture, Respiratory Few Normal respiratory gosia present Gram Stain Few Mixed oral gosia Rare Polymorphonuclear leukocytes Few Epithelial cells Blood Culture [[id number]] (Abnormal) Collected: 02/16/25 1928 Order Status: Completed Specimen: Blood Updated: 02/18/25 1603 Culture, Blood Culture report of Enterococcus faecalis Comment: Cephalosporins, clindamycin, and TMP-SMX are not effective for the treatment of enterococcal (more content not included)... [facility] 02-19-2025 Note HNO ID: [id number] Author: NOTE, INTERFACE, ? Service: ? Author Type: ? Type: Progress Notes Filed: 02/19/2025 02:55 Note Text: Epic Scheduled Downtime: 02/19/2025 1:00:00 AM to 02/19/2025 2:37:00 AM [facility] 02-18-2025 Note HNO ID: [id number] Author: GAYLE SCOTT MD Service: Infectious Disease Author Type: Physician Type: Progress Notes Filed: 02/18/2025 12:38 Note Text: Progress Notes INFECTIOUS DISEASE February 18 at 1145 ASSESSMENT: #-Septic shock (now decreasing pressors) with septicemia from gram-negative rods and strep/Enterococcus bacteria-suspect due to bilateral pyelitis with renal pelvis enhancement, stents, neurogenic bladder which could have had cystitis that ascended from his prior spinal cord injury. #-Complicated UTI as source based on patient with chronic Santana catheter due to paraplegia and neurogenic bladder and because of bacteremia suspected pyelonephritis. Also with stents but they may not have been the initial source. Discussed with urology and stents can be removed when patient stable enough. Apparently he has had them in quite a long time. #-Presence of chronic Santana catheter due to urinary retention/neurogenic bladder issues-this was changed although I think after the culture was obtained. #-Procto- sigmoid inflammation-cannot rule out constipation with features or actual infectious concern. #-Decreasing high fever from the above #-Decreasing leukocytosis from the above #-Altered mental status improved #-Improving renal insufficiency antibiotic dosing #-Antibiotic monitoring-tolerates #-Discussed issues with patient; urology Dr. Herbert. I have performed the following services under complex antimicrobial therapy counseling and treatment: Engaged in complex medical decision-making associated with antimicrobial prescribing. Counseling of patient /discussion with urology RECOMMENDATIONS: - Discontinue vancomycin and continue meropenem. Dose adjustments for improving renal function. -Discussed with urology and stent removal was not on urgency at this point as patient has significant improvement so stability can be attained before stent removal Subjective SUBJECTIVE: HPI: 64 year old male , diabetes, history of vertebral osteomyelitis/epidural abscess in January 2022 with MRSA bacteremia, history of ureteral stone in 2021 and UTI. Spinal cord injury residing at [facility], presented to [facility] 02/16/2025 for unresponsiveness when normally alert and oriented x 4. Arrived only arousable to pain unable to follow commands, nonrebreather, hypotensive, tachycardic. On their exam described as acute distress, ill-appearing, dry mucous membranes, tachycardia, hypotensive. Required intubation and ventilation in the ED, somewhat high lactate. Admitted to ICU service due to shock. Per ICU history patient had L2/L3 epidural abscess in January 2022 with underlying spinal stenosis, MRSA bacteremia ended up paraplegic. Also history of ESBL Klebsiella UTI. Chronic Santana catheter. In April 2024 bilateral hydronephrosis with ureteral stent placement. Imaging with chronic sacral osteomyelitis due to immobility. ICU listed in the septic shock from multiple sources including UTI, left upper lobe GGO for possible pneumonia, left lower lobe mucous plugging and possible postobstructive CAP. Chronic sacral osteomyelitis although that is usually pressure related. Today urology was consulted due to neurogenic bladder with chronic Santana, also for the urosepsis with bilateral ureteral stents and mild to moderate hydronephrosis and a 1.1 cm left renal stone. They noted the bilateral stents with mild left hydronephrosis with curling in the upper pole but recommended no acute surgical intervention. Once patient stable they would do bilateral retrograde stent removal. Patient is wide-awake and answering questions and states he was completely out of it when he woke up in the hospital and does not remember what happened. He gives permission for his daughter to be in the room and she states that although she was not at the care home she was called and told he was mentally out of it and ill so they brought him in. She did state that his urine was pretty cloudy. He has a chronic Santana catheter due to paraplegia and neurogenic bladder and she states it supposed to be changed every other week. She is not sure if it was. NKDA Active Antimicrobials (From admission, onward) Start Stop 02/18/25 0730 meropenem 1 g in NaCl 0.9% 100 mL Vial-Bag (MERREM) 1 g, INTRAVENOUS, EVERY 8 HOURS -- 02/17/25 1430 mupirocin 2 % 0.5 g nasal ointment (BACTROBAN) 0.5 g, NASAL, 2 TIMES DAILY 02/22/25 0859 Immunosuppressants: None known Current other medications reviewed. Current Facility-Administered Medications Medication Dose Route Frequency NaCl 0.9% iv flush bag 20 mL INTRAVENOUS PRN NORepinephrine 16 mg in D5W 250 mL (LEVOPHED) 0.6-15 mcg/min INTRAVENOUS CONTINUOUS phentolamine injection 5 mg (REGITINE) Extravasation Antidote 5 mg SUBCUTANEOUS PRN tamsulosin 0.4 mg cap(s) (FLOMAX) 0.4 mg ORAL DAILY dextrose 15 gram/32 mL 15 g (TRUEPLUS) 15 g ORAL PRN Or glucagon 1 mg inje (more content not included)... [facility] 02-18-2025 Note HNO ID: [id number] Author: ANMOL HERBERT MD Service: Urology Author Type: Resident Type: Progress Notes Filed: 02/19/2025 14:57 Note Text: Attestation signed by Anmol Herbert MD at 02/19/2025 2:57 PM I saw and evaluated the patient. Discussed with the resident and agree with resident's findings and plan as documented in the resident's note. See consult. Anmol Herbert MD UROLOGY PROGRESS NOTE PATIENT NAME: Anmol Reynolds DATE OF : 1960 ADMISSION DATE: 02/16/2025 7:12 PM Subjective No acute events overnight. Pt improving clinically Objective VS: BP (!) 72/54 Pulse 118 Temp 36.8 ?C (98.2 ?F) Resp 14 Ht 180.3 cm (5' 11") Wt 96.6 kg (212 lb 15.4 oz) SpO2 93% BMI 29.70 kg/m? I AND O - 24hr: Intake/Output Summary (Last 24 hours) at 02/18/2025 1219 Last data filed at 02/18/2025 0809 Gross per 24 hour Intake 2447.1 ml Output 1235 ml Net 1212.1 ml Physical Exam: General: Neck: Resp: Abdomen: No acute distress Supple Normal effort Soft, non-tender, nondistended : No flank pain, suprapubic pain Labs and Imaging Studies LABS: BMP: Glucose (mg/dL) Date Value 02/18/2025 177 11/25/2021 436 Potassium (mmol/L) Date Value 02/18/2025 3.9 11/25/2021 3.6 Sodium (mmol/L) Date Value 02/18/2025 135 11/25/2021 131 Chloride (mmol/L) Date Value 02/18/2025 104 11/25/2021 95 CO2 (mmol/L) Date Value 02/18/2025 20 11/25/2021 22 Creatinine (mg/dL) Date Value 02/18/2025 1.04 11/25/2021 0.31 BUN (mg/dL) Date Value 02/18/2025 37 11/25/2021 8 Anion Gap (mmol/L) Date Value 02/18/2025 11 11/25/2021 14 Calcium (mg/dL) Date Value 11/25/2021 8.7 Calcium, Total (mg/dL) Date Value 02/18/2025 7.8 CBC: Hemoglobin (g/dL) Date Value 02/18/2025 11.3 11/25/2021 14.0 Hematocrit (%) Date Value 02/18/2025 33.9 11/25/2021 41.1 WBC (k/uL) Date Value 02/18/2025 13.39 11/25/2021 13.30 Platelet Count (k/uL) Date Value 02/18/2025 69 11/25/2021 275 Urinalysis: Specific [place], Ur Date Value Ref Range Status 02/16/2025 1.037 (H) 1.005 - 1.030 Final Glucose, Urine Date Value Ref Range Status 02/16/2025 Negative Trace, Negative Final Bilirubin, Urine Date Value Ref Range Status 02/16/2025 Negative Negative Final Ketones, Urine Date Value Ref Range Status 02/16/2025 Negative Negative, Trace Final Hemoglobin/Blood,Ur Date Value Ref Range Status 02/16/2025 3+ (A) Negative, Trace Final Protein, Urine Date Value Ref Range Status 02/16/2025 2+ (A) Trace, Negative Final Nitrites Date Value Ref Range Status 02/16/2025 Negative Negative Final WBC, Urine Date Value Ref Range Status 02/16/2025 >25 /HPF (A) 0-5 /HPF Final Urine Culture: No results found for: "URCUL" Assessment and Plan ASSESSMENT: 64 year old male with chronic bilateral stents placed at [facility] in MAY 2024 PLAN: - No acute intervention - Given pt improvement on current regimen, no plans for surgery this admission - Pt can follow up with [facility] Urology - Appreciate ICU care Jose Nesbitt MD PGY1 Urology 12:22 PM 02/18/25 [facility] 02-18-2025 Note HNO ID: [id number] Author: JON MCDONALD MD Service: Critical Care Author Type: Physician Type: Progress Notes Filed: 02/18/2025 13:06 Note Text: [facility] STAFF PHYSICIAN NOTE OF PERSONAL INVOLVEMENT IN CARE I have reviewed the progress note obtained and documented by the resident and I personally participated in the thomas components. I have discussed the case and management of the patient's care. The following comments revise or confirm relevant thomas components of the note. Personally reviewed all pertinent data including labs, cultures, and imaging. CT chest 02/16: IMPRESSION: 1. Left upper lobe ground glass opacities favor pulmonary contusions in the setting of trauma. 2. Trace pleural effusions and bilateral posterior lower lobe mucus plugging with postobstructive atelectasis or pneumonia, greater on the left. 3. Minimal subcutaneous emphysema in the left pectoralis major muscle. Additional foci of soft tissue gas throughout multiple vessels is likely iatrogenic. 4. Enteric tube terminates at the gastroesophageal junction and should be advanced. CT abd/pelvis 02/16: IMPRESSION: 1. Bilateral ureteral stents with the right proximal end coiled in a upper pole calyx and the left proximal end coiled in a upper pole calyx. The right and left distal ends are coiled in the urinary bladder. 2. Left kidney shows slight delayed nephrogram with mild to moderate hydronephrosis and mild left hydronephrosis. 3. Left renal stones with largest measuring 1.1 cm lower pole. No left ureteral stones. 4. Mild bilateral urothelial thickening and enhancement of the right and left renal pelvises left greater than right and the left ureter which could be of infectious or inflammatory etiology versus changes from a recently passed stone. 5. Urinary bladder is nondistended with indwelling Santana catheter and a couple small foci of nondependent gas. There is bladder wall thickening which could be related to decompressed state versus cystitis in the appropriate clinical setting, correlate for cystitis. 6. Enteric tube present with the tip above the gastroesophageal junction which needs advanced. 7. Wall thickening of the distal sigmoid colon and rectum suspicious for proctocolitis. 8. Details above. 9. Follow-up as indicated. Personally reviewed all pertinent data including labs, cultures, and imaging. IMPRESSION: 64 y/o M with extensive medical hx who presented from care home for AMS. In the ED, was obtunded and intubated. Found to be hypotensive and tachycardic, eventually requiring vasopressors. Workup revealed MK, UTI, and multiple other findings. CT with multiple findings including coiling of stents and bibasilar lung opacities. MICU consulted septic shock. #Septic shock #Polymicrobial bacteremia #UTI in setting of neurogenic bladder/chronic santana #Acute hypoxemic respiratory failure s/p extubation 02/17 #WaltFib w/ RVR #Acute toxic metabolic encephalopathy - Resolved #MK - Resolved #Bibasilar consolidations - suspect more consistent with atelectasis #Renal calculi present #Hx of bilateral hydro #Hx of paraplegia #Hx of L2-L3 spinal abscess with multiple complications #Hx of DM #Hyperglycemia #Chronic sacral osteomyelitis #Acute proctocolitis PLAN: - Tolerating RA - Continue abx as per ID consultation, broadened given concerns for ESBL UTI - Urological consultation, likely will need ureteral stent removal. No urgent indications for surgery and will plan when patient more clinically stable. Will touch base with them today. - Follow finalized cultures - Wean pressors as able for MAP > 65 mmHg. Currently on minimal levo, will add midodrine to facilitate ongoing weaning - Rate control with amio gtt. - Monitor electrolytes. Keep K >4, Mg >2, Po4 >2.5 - Strict monitoring of I's AND O's and daily renal function - Resume home medications as tolerated - Glycemic control w/ insulin as ordered, adjust as indicated - ICU prophylaxis - Heparin gtt in light of Aquiles - Ongoing ICU supportive care - Code Status: Full Code ICU Checklist Last Documented/Reviewed time: 02/18/2025 10:05 AM ICU Code Status "History assess/Full code by default: No, active code status present -------- A= Assess, Prevent, Manage Pain Pain adequately controlled?: Yes C= Choice of Sedation and Analgesia RASS at Goal?: Yes B= Both Spontaneous Awakening and Breathing Trials Ventilator: None D= Delirium: Assess, Prevent and Manage ICU Delirium Status: CAM Negative - no action required Sleep adequate?: Yes Restraint Status: None E= Early Mobility/Excercise ICU Mobility: ICU Mobility Goal: Head of bed 60 degrees F= Family Engagement and Empowerment ICU plan of care visit at bedside in last 24 hours: Yes, Provider, RN, Patient/ designee ICU Dispositio (more content not included)... [facility] 02-18-2025 Note HNO ID: [id number] Author: JON MCDONALD MD Service: Critical Care Author Type: Physician Type: Progress Notes Filed: 02/18/2025 15:04 Note Text: MICU PROGRESS NOTE PATIENT NAME: Anmol Reynolds REASON FOR ADMISSION:Septic shock LOS: 1 Subjective HPI Anmol Reynolds is a 64 year old male with PMH L2-L3 epidural abscess 01/14/22 C/b spinal stenosis, MRSA bacteremia, paraplegia, and chronic santana Hx ESBL klebsiella pneumoniae UTI S/p L2-L3 laminectomy and posterior fusion T2DM, last HbA1C 6.5 - 01/23/2022 Bilateral hydronephrosis s/p ureteral stent placement April 2024 Chronic sacral osteomyelitis Chronic normocytic anemia Chronic hematuria MICU was consulted for septic shock, altered mental status, and failure to protect airway requiring intubation. The patient initially presented to the [facility] ED on February 16, 2025 after [facility], last known well 1700 today INTERVAL EVENTS No acute event overnight. This morning, patient is awake and alert. He endorses mild throat pain but states that it has improved compared to yesterday. He denies any other pain at this time. Pertinent results include: Calcium 8.2> 7.8 Creatinine 0.53 > 2.35 >1.9>1.0 WBC 19.6>13.4 Hemoglobin 11.9>11.3 Platelets 93> 69(4Ts: Low probability of HIT) Consultation updates, all recs are appreciated: Urology: Given pt improvement on current regimen, no plans for surgery this admission. [facility] with [facility] Urology Infectious disease: Discontinue vancomycin and continue meropenem. Objective OBJECTIVE BP 83/58 Pulse 109 Temp 36.6 ?C (97.9 ?F) (Oral) Resp 18 Ht 180.3 cm (5' 11") Wt 95.2 kg (209 lb 14.1 oz) SpO2 94% BMI 29.27 kg/m? Temp (24hrs), Av.7 ?C (98 ?F), Min:36.4 ?C (97.5 ?F), Max:37 ?C (98.6 ?F) Body mass index is 29.27 kg/m?., Hemoglobin A1C (%) Date Value 01/23/2022 6.5 10/25/2020 12.1 Intake/Output Summary (Last 24 hours) at 02/18/2025 0620 Last data filed at 02/18/2025 0400 Gross per 24 hour Intake 2736.6 ml Output 1445 ml Net 1291.6 ml LABORATORY: BLOOD GAS: CBC: Recent Labs 02/18/25 0420 02/17/25 1009 02/17/2522402/16/251921 WBC 13.39* 14.96* 19.64* 10.29 HB 11.3* 13.1 11.9* 11.6* HCT 33.9* 41.4 36.6* 34.9* PLT 69* 64* 93* 108* MCV 90.9 94.5 92.7 90.6 RDWCV 14.9 15.0 14.8 14.5 NEUTP -- -- -- 90.0 ABSNEUT -- -- -- 9.26* LYMPHP -- -- -- 3.0 MONOP -- -- -- 4.0 COAG: Recent Labs 02/18/25 0021 02/17/25 1728 02/17/25 1644 02/17/25 1009 APTT 51.0* 38.7* EXTREMELY ABNORMAL RESULT. No clot detected at 320 seconds. Refer to anticoagulation nomogram for further actions.* 36.7* INR -- -- -- 1.2 CMP: Recent Labs 02/18/25 0420 02/17/2522402/16/25 1922 GLUC 177* 225* 131* NA 135* 132* 136 K 3.9 4.7 4.4 CHLOR 104 104 105 CO2 20* 17* 17* ANION 11 11 14 BUN 37* 34* 33* CREAT 1.04 1.90* 2.35* ALB 2.3* 2.5* 2.3* TBILI 0.6 0.9 0.9 ALKPHOS 115* 174* 286* AST 38 41* 31 ALT 25 21 17 TPROT 5.8* 6.0* 5.9* MG 2.3 -- 1.6* URINALYSIS: Recent Labs 02/16/25 2107 SPGR 1.037* UGLUC Negative UBILI Negative UKET Negative UHB 3+* UPROT 2+* UWBC >25 /HPF* Cardiac:No results for input(s): "CKTEST", "CKMB", "CKMBP", "TROPONIN", "BNP" in the last 168 hours. Microbiology: Positive Micro-30 Days Procedure Component Value Units Date/Time Respiratory Culture and Stain [[id number]] (Abnormal) Collected: 02/17/25 1010 Order Status: Completed Specimen: Sputum Updated: 02/17/25 1328 Gram Stain Few Mixed oral gosia Rare Polymorphonuclear leukocytes Few Epithelial cells Blood Culture [[id number]] (Abnormal) Collected: 02/16/251927 Order Status: Completed Specimen: Blood Updated: 02/17/25 1049 Gram Stain Gram positive cocci in pairs and chains Gram negative bacilli Blood Culture [[id number]] (Abnormal) Collected: 02/16/251921 Order Status: Completed Specimen: Blood Updated: 02/17/25 0951 Gram Stain Gram positive cocci in pairs and chains Gram negative bacilli IMAGING: ABD XR 02/16/2025 Enteric tube tip overlies the proximal gastric body. The side port overlies the GE junction. ABD XR 02/16/2025 Enteric tube tip projects over the distal esophagus. Advancement recommended. Bilateral ureteral stents partially visualized. Spinal hardware. EKG leads. No dilated gas-filled bowel loops. CT chest with contrast 02/16/2025 1. Left upper lobe ground glass opacities favor pulmonary contusions in the setting of trauma. 2. Trace pleural effusions and bilateral posterior lower lobe mucus plugging with postobstructive atelectasis or pneumonia, greater on the left. 3. Minimal subcutaneous emphysema in the left pectoralis major muscle. Additional foci of soft tissue gas throughout multiple vessels is likely iatrogenic. 4. Enteric tube terminates at the gastroesophageal junction and should be advanced. CT abdomen pelvis with IV c (more content not included)... [facility] 02-18-2025 Note HNO ID: [id number] Author: NOTE, INTERFACE, ? Service: ? Author Type: ? Type: Progress Notes Filed: 02/18/2025 03:47 Note Text: Epic Scheduled Downtime: 02/18/2025 1:00:00 AM to 02/18/2025 3:39:00 AM [facility] 02-17-2025 Note HNO ID: [id number] Author: ELLIOT GOMEZ RN Service: Care Management Author Type: Registered Nurse Type: Care Mgt Initial Assessment Filed: 02/17/2025 13:50 Note Text: CARE MANAGEMENT: ASSESSMENT AND DISCHARGE PLAN SERVICE DATE: February 17, 2025 SERVICE TIME: 1343 PCP: No primary care provider on file. Primary Contact: Extended Emergency Contact Information Primary Emergency Contact: SUMI REYNOLDS Mobile Relation: Daughter Secondary Emergency Contact: Ronald Reynolds Address: [address] [place] [address] Mobile Relation: Brother Admission Status: Inpatient Insurance Provider: [employer] MEDICARE Discharge Planning requested by: Per Department Practice Potential Transition Plans Chcf Facility/Intermediate Care Facility Advance Directives Current Advance Directive: None Subacute Nurse Attempted to Assist with AD Completion: Yes Action: Education Provided Current Living Arrangements and Support Lives with: Other person(s) Type of Residence: Extended Care Facility Does the patient have to climb stairs at home?: No Care Facility Name: [facility] Support: Children, Other: See Comment [facility] staff How do you manage to accomplish the following: Dependent: Ambulation, Bathe/Shower, Meals/Meal Prep, Dress, Going to the bathroom, Medication Management, Transportation to appointments/community Current Services/Equipment Current Post-Acute Service(s): DME Current DME Type: Wheelchair-electric, [place] [employer] Discharge Planning Patient Goal(s): General wellness Aguilar of Choice Explained: Aguilar of Choice Given: No Reason Not Given: No placements necessary Are you interested in bedside delivery of your medications? No Discharge Planning Participant(s): Patient, Children Patient/Family Comments: Caregiver Assessment: Caregiver is ready, willing and able to meet the patient's needs as recommended by the inter-professional team: Yes Name of Caregiver: [facility] Transport at Discharge: Transportation Arrangements: Ambulance Transportation Agency and Phone #:: [facility] ( [facility] ) [phone] / [phone] Needs Prior to Discharge: Needs Prior to Discharge: To Be Determined, OT/PT Evaluation, Discharge Transportation Post-Acute Discharge Plan: Met with patient and daughter Sumi in room. Extubated this morning. 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 Patient is LTC and a bed hold at the facility. Plan is to return to [place] at discharge per daughter. Recommend therapy evals when appropriate. Patient will need precert if skilled is needed on return. Patient will need cot transport at discharge. CM will continue to follow. SIGNATURE: Elliot Gomez RN PATIENT NAME: Anmol Given DATE: February 17, 2025 TIME: 1:43 PM [facility] 02-17-2025 Note HNO ID: [id number] Author: JESSICA CLEMENT [facility] Service: Pharmacy Author Type: Pharmacist Type: Plan of Care Filed: 02/21/2025 09:54 Note Text: PHARMACY MEDICATION REVIEW Patient Name: Anmol Given : 1960 The following medications were updated within the [employer] DESIGN[employer] medication list: Medications ADDED to [facility] medication list aspirin, enteric coated (ASPIRIN, ENTERIC COATED) 325 mg EC tablet Take 325 mg by mouth once daily. DULoxetine (CYMBALTA) 30 mg capsule Take 30 mg by mouth once daily. insulin lispro 100 unit/mL injection Inject subcutaneously three times a day before meals. 0-160=0 units 161-200=14 units 201-250=18 units 251-300=20 units 301-350=22 units 351-400=28 units polyethylene glycol 3350 17 gram packet Take 17 g by mouth once daily as needed for constipation. Dissolve dose in 4 - 8 ounces of liquid and take as directed. Mirtazapine (REMERON) 7.5 mg tablet Take 7.5 mg by mouth daily at bedtime. therapeutic multivitamin-minerals (THERA-M PLUS) 9 mg iron-400 mcg tablet Take 1 tablet by mouth once daily. potassium chloride ER (KLOR-CON) 20 mEq tablet Take 40 mEq by mouth once daily. pregablin (LYRICA) 200 mg capsule Take 200 mg by mouth three times a day. insulin glargine-yfgn (SEMGLEE,INSULIN GLARGINE-YFGN,) 100 unit/mL solution Inject 45 Units subcutaneously once daily. linaGLIPtin (TRADJENTA) 5 mg tab Take 5 mg by mouth once daily. calcium carbonate (TUMS) 500 mg chew Take 500 mg by mouth every 8 hours as needed (heartburn). Medications CHANGED on [employer] DES[employer] medication list Medications REMOVED from [employer] DESIGN[employer] medication list alogliptin benzoate (ALOGLIPTIN ORAL) Adjust Sig - Block E-Cancel artificial tear, Hypromellose, 0.3 % drop Adjust Sig - Block E-Cancel ASCORBIC ACID ORAL Adjust Sig - Block E-Cancel aspirin 81 mg chewable tablet Adjust Sig - Block E-Cancel bisacodyl (DULCOLAX) 10 mg supp Adjust Sig - Block E-Cancel bisacodyl EC (DULCOLAX) 5 mg EC tablet Adjust Sig - Block E-Cancel enoxaparin (LOVENOX) 40 mg/0.4 mL Adjust Sig - Block E-Cancel gabapentin (NEURONTIN) 300 mg capsule Adjust Sig - Block E-Cancel HYDROmorphone (DILAUDID) 4 mg tablet Adjust Sig - Block E-Cancel hydrOXYzine HCl (ATARAX) 25 mg tablet Adjust Sig - Block E-Cancel hyoscyamine sublingual (LEVSIN SL) 0.125 mg Adjust Sig - Block E-Cancel insulin glargine 100 unit/mL (3 mL) Adjust Sig - Block E-Cancel insulin lispro 100 unit/mL injection Adjust Sig - Block E-Cancel insulin lispro 100 unit/mL injection Adjust Sig - Block E-Cancel melatonin 3 mg tablet Adjust Sig - Block E-Cancel mirtazapine (REMERON) 15 mg tablet Adjust Sig - Block E-Cancel naloxone 4 mg/actuation nasal spray (NARCAN) Adjust Sig - Block E-Cancel polyethylene glycol 3350 17 gram packet Adjust Sig - Block E-Cancel potassium chloride ER (K-DUR, KLOR-CON) 20 mEq tablet Adjust Sig - Block E-Cancel simethicone, chewable (MYLICON) 80 mg chewable tablet Adjust Sig - Block E-Cancel senna-docusate (SENNA-S) 8.6-50 mg per tablet Adjust Sig - Block E-Cancel Additional comments: Verified medication information with [facility]. Removed medications listed above from med list to match [facility] med list. Added medications listed above to med list to match [facility] med list. Required follow up actions for nursing: None The below information represents the best possible medication history: Yes Medication history completed by: Biostatistics Teacher: Rosa Brice (Wood Preparation Supervisor) Source of history: custodial/Other [facility] and [facility] records Medication nonadherence identified: No barriers noted Reconciliation completed: Yes Completed by: TREV All REF[employer] DESIGNER medications addressed by TREV Patient interested in Bedside Delivery Services or using OP Pharmacy at discharge? No Preferred outpatient pharmacy: [facility] Allergies: No Known Allergies Prior to Admission Medications Prescriptions Last Dose Informant Patient Reported? Taking? DULoxetine (CYMBALTA) 30 mg capsule Yes Yes Sig: Take 30 mg by mouth once daily. Mirtazapine (REMERON) 7.5 mg tablet Yes Yes Sig: Take 7.5 mg by mouth daily at bedtime. aspirin, enteric coated (ASPIRIN, ENTERIC COATED) 325 mg EC tablet Yes Yes Sig: Take 325 mg by mouth once daily. calcium carbonate (TUMS) 500 mg chew Yes Yes Sig: Take 500 mg by mouth every 8 hours as needed (heartburn). cyclobenzaprine (FLEXERIL) 10 mg tablet No Yes Sig: Take 1 tablet by mouth three times daily. docusate sodium (COLACE) 100 mg capsule No Yes Sig: Take 1 capsule by mouth twice daily. ferrous sulfate 325 mg (65 mg iron) tablet Yes Yes Sig: Take 325 mg by mouth once daily. insulin glargine-yfgn (SEMGLEE,INSULIN GLARGINE-YFGN,) 100 unit/mL solution Yes Yes Sig: Inject 45 Units subcutaneously once daily. insulin lispro 100 unit/mL injection Yes Yes Sig: Inject subcutaneously thre (more content not included)... [facility] 02-17-2025 Note HNO ID: [id number] Author: JON MCDONALD MD Service: Critical Care Author Type: Physician Type: Progress Notes Filed: 02/17/2025 13:12 Note Text: [facility] STAFF PHYSICIAN NOTE OF PERSONAL INVOLVEMENT IN CARE I have reviewed the progress note obtained and documented by the resident and I personally participated in the thomas components. I have discussed the case and management of the patient's care. The following comments revise or confirm relevant thomas components of the note. CT chest 02/16: IMPRESSION: 1. Left upper lobe ground glass opacities favor pulmonary contusions in the setting of trauma. 2. Trace pleural effusions and bilateral posterior lower lobe mucus plugging with postobstructive atelectasis or pneumonia, greater on the left. 3. Minimal subcutaneous emphysema in the left pectoralis major muscle. Additional foci of soft tissue gas throughout multiple vessels is likely iatrogenic. 4. Enteric tube terminates at the gastroesophageal junction and should be advanced. CT abd/pelvis 02/16: IMPRESSION: 1. Bilateral ureteral stents with the right proximal end coiled in a upper pole calyx and the left proximal end coiled in a upper pole calyx. The right and left distal ends are coiled in the urinary bladder. 2. Left kidney shows slight delayed nephrogram with mild to moderate hydronephrosis and mild left hydronephrosis. 3. Left renal stones with largest measuring 1.1 cm lower pole. No left ureteral stones. 4. Mild bilateral urothelial thickening and enhancement of the right and left renal pelvises left greater than right and the left ureter which could be of infectious or inflammatory etiology versus changes from a recently passed stone. 5. Urinary bladder is nondistended with indwelling Santana catheter and a couple small foci of nondependent gas. There is bladder wall thickening which could be related to decompressed state versus cystitis in the appropriate clinical setting, correlate for cystitis. 6. Enteric tube present with the tip above the gastroesophageal junction which needs advanced. 7. Wall thickening of the distal sigmoid colon and rectum suspicious for proctocolitis. 8. Details above. 9. Follow-up as indicated. Personally reviewed all pertinent data including labs, cultures, and imaging. IMPRESSION: 64 y/o M with extensive medical hx who presented from care home for AMS. In the ED, was obtunded and intubated. Found to be hypotensive and tachycardic, eventually requiring vasopressors. Workup revealed MK, UTI, and multiple other findings. CT with multiple findings including coiling of stents and bibasilar lung opacities. MICU consulted septic shock. #Septic shock, suspect urinary source #Polymicrobial bacteremia #Acute hypoxemic respiratory failure in the setting of septic shock #LLL pneumoina #UTI in setting of #A.Fib w/ RVR #Acute toxic metabolic encephalopathy #MK #Bibasilar consolidations- PNA vs atelectasis #Renal calculi present #Hx of bilateral hydro #Hx of paraplegia #Hx of L2-L3 spinal abscess with multiple complications #Hx of DMI #Hyperglycemia #Chronic sacral osteomyelitis #Acute proctocolitis PLAN: - Recommend extubation/vent liberation this AM - Continue abx as per ID consultation - Urological consultation, likely will need ureteral stent removal. No urgent indications for surgery and will plan when patient more clinically stable - Follow finalized cultures - Wean pressors as able for MAP > 65 mmHg. May need to consider transition to phenylephrine if continues to have poor HR control. - Rate control with amio gtt. If no plans for surgery, start on heparin gtt for A.Fib. OK for anticoagulation per urology - Monitor electrolytes. Keep K >4, Mg >2, Po4 >2.5 - Strict monitoring of I's AND O's and daily renal function - Resume home medications as tolerated - Glycemic control w/ insulin as ordered, adjust as indicated - ICU prophylaxis - Ongoing ICU supportive care - Code Status: Full Code ICU Checklist Last Documented/Reviewed time: 02/17/2025 9:42 AM ICU Code Status "History assess/Full code by default: No, active code status present -------- A= Assess, Prevent, Manage Pain Pain adequately controlled?: Yes C= Choice of Sedation and Analgesia RASS at Goal?: Yes B= Both Spontaneous Awakening and Breathing Trials Ventilator: None D= Delirium: Assess, Prevent and Manage ICU Delirium Status: CAM Negative - no action required Sleep adequate?: Yes Restraint Status: None E= Early Mobility/Excercise ICU Mobility: ICU Mobility Goal: Head of bed 60 degrees F= Family Engagement and Empowerment ICU plan of care visit at bedside in last 24 hours: Yes, Provider, RN, Patient/ designee ICU Disposition: ICU Disposition-POC Detail: To be determined Prevention: Line Status: (more content not included)... [facility] 02-17-2025 Note HNO ID: [id number] Author: JON MCDONALD MD Service: Critical Care Author Type: Physician Type: Progress Notes Filed: 02/17/2025 13:55 Note Text: MICU PROGRESS NOTE PATIENT NAME: Anmol Reynolds REASON FOR ADMISSION:Septic shock LOS: 0 Subjective HPI Anmol Given is a 64 year old male with PMH L2-L3 epidural abscess 01/14/22 C/b spinal stenosis, MRSA bacteremia, paraplegia, and chronic santana Hx ESBL klebsiella pneumoniae UTI S/p L2-L3 laminectomy and posterior fusion T2DM, last HbA1C 6.5 - 01/23/2022 Bilateral hydronephrosis s/p ureteral stent placement April 2024 Chronic sacral osteomyelitis Chronic normocytic anemia Chronic hematuria MICU was consulted for septic shock, altered mental status, and failure to protect airway requiring intubation. The patient initially presented to the [facility] ED on February 16, 2025 after being [facility] un[facility], last known well 1700 today INTERVAL EVENTS No acute event overnight. This morning, patient is awake and alert. Extubation was performed and patient's only concern is pain in his throat. Pertinent results include: Calcium 8.2 Creatinine 0.53 > 2.35 >1.9 WBC 19.6 Hemoglobin 11.9 Platelets 93 (4Ts: Low probability of HIT) Consultation updates, all recs are appreciated: Urology: Plan for BL retrograde stent removal once patient more stable, Okay for anticoagulation/DVT PPX Infectious disease Objective OBJECTIVE BP 91/61 Pulse (!) 146 Temp 36.4 ?C (97.5 ?F) (Oral) Resp 17 Ht 180.3 cm (5' 11") Wt 95.2 kg (209 lb 14.1 oz) SpO2 97% BMI 29.27 kg/m? Temp (24hrs), Av.8 ?C (100 ?F), Min:36.4 ?C (97.5 ?F), Max:39.3 ?C (102.7 ?F) Body mass index is 29.27 kg/m?., Hemoglobin A1C (%) Date Value 01/23/2022 6.5 10/25/2020 12.1 Intake/Output Summary (Last 24 hours) at 02/17/2025 0713 Last data filed at 02/17/2025 0600 Gross per 24 hour Intake 3560 ml Output 525 ml Net 3035 ml LABORATORY: BLOOD GAS: CBC: Recent Labs 02/17/2522402/16/251921 WBC 19.64* 10.29 HB 11.9* 11.6* HCT 36.6* 34.9* PLT 93* 108* MCV 92.7 90.6 RDWCV 14.8 14.5 NEUTP -- 90.0 ABSNEUT -- 9.26* LYMPHP -- 3.0 MONOP -- 4.0 COAG: No results for input(s): "APTT", "INR" in the last 168 hours. CMP: Recent Labs 02/17/2522402/16/251921 GLUC 225* 131* NA 132* 136 K 4.7 4.4 CHLOR 104 105 CO2 17* 17* ANION 11 14 BUN 34* 33* CREAT 1.90* 2.35* ALB 2.5* 2.3* TBILI 0.9 0.9 ALKPHOS 174* 286* AST 41* 31 ALT 21 17 TPROT 6.0* 5.9* MG -- 1.6* URINALYSIS: Recent Labs 02/16/25 210 SPGR 1.037* UGLUC Negative UBILI Negative UKET Negative UHB 3+* UPROT 2+* UWBC >25 /HPF* Cardiac:No results for input(s): "CKTEST", "CKMB", "CKMBP", "TROPONIN", "BNP" in the last 168 hours. Microbiology: Positive Micro-30 Days No results found for the last 720 hours. IMAGING: CXR 02/16/2025 Enteric tube tip projects over the distal esophagus. Advancement recommended. Bilateral ureteral stents partially visualized. Spinal hardware. EKG leads. No dilated gas-filled bowel loops. CT chest with contrast 02/16/2025 1. Left upper lobe ground glass opacities favor pulmonary contusions in the setting of trauma. 2. Trace pleural effusions and bilateral posterior lower lobe mucus plugging with postobstructive atelectasis or pneumonia, greater on the left. 3. Minimal subcutaneous emphysema in the left pectoralis major muscle. Additional foci of soft tissue gas throughout multiple vessels is likely iatrogenic. 4. Enteric tube terminates at the gastroesophageal junction and should be advanced. CT abdomen pelvis with IV contrast 02/16/2025 1. Bilateral ureteral stents with the right proximal end coiled in a upper pole calyx and the left proximal end coiled in a upper pole calyx. The right and left distal ends are coiled in the urinary bladder. 2. Left kidney shows slight delayed nephrogram with mild to moderate hydronephrosis and mild left hydronephrosis. 3. Left renal stones with largest measuring 1.1 cm lower pole. No left ureteral stones. 4. Mild bilateral urothelial thickening and enhancement of the right and left renal pelvises left greater than right and the left ureter which could be of infectious or inflammatory etiology versus changes from a recently passed stone. 5. Urinary bladder is nondistended with indwelling Santana catheter and a couple small foci of nondependent gas. There is bladder wall thickening which could be related to decompressed state versus cystitis in the appropriate clinical setting, correlate for cystitis. 6. Enteric tube present with the tip above the gastroesophageal junction which needs advanced. 7. Wall thickening of the distal sigmoid colon and rectum suspicious for proctocolitis. CTA head and neck 02/16/[address] brain without contrast No acute intracranial pathology LV Ejection (more content not included)... [facility] 02-16-2025 Note HNO ID: [id number] Author: ROZ MIKE RN Service: ? Author Type: Registered Nurse Type: ED Notes Filed: 02/16/2025 19:48 Note Text: Restraints applied at this time, bilateral upper extremity softs. [facility] 01-31-2025 Instructions Rj Brooks RN - 01/31/2025 2:01 PM EDT WOUND CARE INSTRUCTIONS- Anmol Reynolds Wound location: sacrum & left ischium [place] -Gather supplies -Place down a clean work surface such as new paper towel or newly cleaned towel -Clean all metal instruments with rubbing alcohol before and after each use. - Plastic garbage bag for old dressing - Wash your hands with soap and water before and after wound care. - Apply a vashe' moistened 4x4 gauze soak for 5-10 minutes. Pat dry. - Apply calcium alginate silver to the wound base. - Cover with 4x4 [place] SAP. - Change your dressing daily and keep clean dry and intact. Regarding lymphedema/edema: Elevation of extremity above the heart for 30 minutes three times daily and as needed Exercise such as writing the ABC's with your toes in the air, walking and/or calf pumps Wearing compression as ordered by provider Diet controlling of sodium as instructed by provider Use of medication to help control edema. To give your wound the best chance to heal: - Eat three balanced meals daily focusing on the protein - Control swelling by elevating the extremity above your heart - exercise the extremity - Control your blood sugar. Keep blood sugar less than 200 - Complete your wound care instructions - Vitamin C 500 mg twice daily - Multiple Vitamin Daily - Drink a protein shake daily - Smoking decreases the amount of oxygen delivered to tissue and can impair wound healing and/or increased risk of infection Report any of the following changes to the Wound Center at [phone] or go to the Emergency Department: Fever or chills Increased drainage Green or yellow drainage Foul odor Increased pain Hardness around the wound Redness, warmth or swelling of the surrounding tissue Color change to the wound When contacting the wound center at the ([phone]): Leave a message that includes your full name, birthday, phone number who your provider is and the reason for your call. During clinic hours we are with patients. A nurse will return your call within 24-48 hours in the order it was received. The wound center is closed weekends and on major holidays. If you call at that time we will return your call in the order that the calls were received at the soonest opportunity. If you have any signs of infection or need immediate attention then please go to the emergency department to be evaluated Thank you for your understanding and cooperation. Plan: - Return to the Wound Center to see Milad Goodson MD in 6 weeks. - Blood work ordered please go to any [facility] lab. - Please send patient with medication list at next appointment. - Continue aggressive nutritional support to assist wound healing - CAT Scans & MRI need to be scheduled through Central Scheduling. Call [phone].(If applicable) Milad Goodson MD/zmina/juan joés documented in this encounter [facility] 01-31-2025 Note HNO ID: [id number] Author: MILAD GOODSON MD Service: ? Author Type: Physician Type: Progress Notes Filed: 02/01/2025 13:02 Note Text: INFECTIOUS DISEASE WOUND CENTER CONSULT PATIENT NAME: Anmol Reynolds DATE OF CONSULTATION: 01/31/2025 REASON FOR CONSULTATION: Chronic osteomyelitis of the sacrum on MRI HISTORY OF PRESENT ILLNESS: The patient is a 64-year-old male with past medical history of diabetes mellitus and spinal cord injury leading to paralysis who has had a chronic nonhealing sacral wound. An MRI was performed due to the nonhealing nature of the wound and showed chronic osteomyelitis of S5 segment. He denies any fevers or chills. No current culture data is available to me PAST MEDICAL HISTORY Diagnosis Date Arthritis Chronic low back pain 11/26/2021 Chronic pain of right ankle 11/26/2021 Diabetes (HCC) Elevated CA 19-9 level 08/21/2021 Epidural abscess (HCC) 01/04/2022 MRSA bacteremia 11/27/2021 Neuropathy Nicotine use disorder, F17.2 06/14/2019 Pilonidal cyst with abscess 12/31/2020 Pilonidal cyst without abscess 05/29/2020 Pyelonephritis 11/27/2021 Sciatica Severe protein-calorie malnutrition (HCC) 09/04/2021 Type 2 diabetes mellitus with hyperglycemia, with long-term current use of insulin (HCC) 01/18/2021 Ureteral stone 11/25/2021 UTI (urinary tract infection) 11/26/2021 Vertebral osteomyelitis (HCC) 01/04/2022 PAST SURGICAL HISTORY Procedure Laterality Date BACK SURGERY HX I AND D OF PERIANAL ABSCESS, SIMPLE 05/04/2020 in ER INC/DRAINAGE OF PERINEAL ABSCESS 06/13/[address] Franklin JOINT REPLACEMENT HX ankle surgery right ORTHOPEDICS SURGERY HX ALLERGIES ALLERGIES No Known Allergies CURRENT OUTPATIENT MEDICATIONS mirtazapine (REMERON) 15 mg tablet Take 1 tablet by mouth daily at bedtime. gabapentin (NEURONTIN) 300 mg capsule Take 2 capsules by mouth three times daily for 180 days. insulin glargine 100 unit/mL (3 mL) Inject 45 Units subcutaneously every morning. insulin lispro 100 unit/mL injection Inject 8 Units subcutaneously w MEALS. insulin lispro 100 unit/mL injection Inject 0-28 Units subcutaneously three times daily before meals. ADMINISTER CORRECTIONAL INSULIN REGARDLESS OF MEAL OR NUTRITION INTAKE Scale CUSTOM If Blood Glucose (mg/dL) is: Less than 110 Give 0 units 111-150 Give 0 units 151-200 Give 14 units 201-250 Give 18 units 251-300 Give 20 units 301-350 Give 22 units 351-400 Give 28 units Greater than 400 Give 28 units and Notify Provider Notify provider if 2 consecutive blood glucose values in the previous 24 hours are greater than 250 mg/dL and there have been no changes to the insulin regimen in the previous 24 hours. polyethylene glycol 3350 17 gram packet Take 1 Packet by mouth twice daily. Dissolve dose in 4 - 8 ounces of liquid and take as directed. ASCORBIC ACID ORAL Take 500 mg by mouth twice daily. ferrous sulfate 325 mg (65 mg iron) tablet Take 325 mg by mouth once daily. bisacodyl EC (DULCOLAX) 5 mg EC tablet Take 1 tablet by mouth twice daily. hydrOXYzine HCl (ATARAX) 25 mg tablet Take 1 tablet by mouth every 6 hours as needed (Anxiety). melatonin 3 mg tablet Take 3 tablets by mouth daily at bedtime. potassium chloride ER (K-DUR, KLOR-CON) 20 mEq tablet Take 1 tablet by mouth once daily. simethicone, chewable (MYLICON) 80 mg chewable tablet Take 1 tablet by mouth four times daily as needed. aspirin 81 mg chewable tablet 1 tablet by ORAL/FEEDING TUBE route once daily. enoxaparin (LOVENOX) 40 mg/0.4 mL Inject 0.4 mL subcutaneously q 24 HR. docusate sodium (COLACE) 100 mg capsule Take 1 capsule by mouth twice daily. tamsulosin (FLOMAX) 0.4 mg Take 1 capsule by mouth once daily. cyclobenzaprine (FLEXERIL) 10 mg tablet Take 1 tablet by mouth three times daily. hyoscyamine sublingual (LEVSIN SL) 0.125 mg Dissolve 1 tablet under the tongue every 8 hours as needed for up to 5 days. alogliptin benzoate (ALOGLIPTIN ORAL) Take 25 mg by mouth once daily. oxycodone HCl (OXYCODONE ORAL) Take 15 mg by mouth three times daily. HYDROmorphone (DILAUDID) 4 mg tablet Take 4 mg by mouth every 4 hours as needed for pain. senna-docusate (SENNA-S) 8.6-50 mg per tablet Take 1 tablet by mouth twice daily. naloxone 4 mg/actuation nasal spray (NARCAN) Use 1 spray in one nostril as needed for overdose. May repeat every 2 to 3 min in alternating nostrils until medical assistance is available artificial tear, Hypromellose, 0.3 % drop Use 1 Drop in both eyes as needed. bisacodyl (DULCOLAX) 10 mg supp 1 Suppository by RECTAL route once daily as needed. No family history on file. Social History Tobacco Use Smoking status: Every Day Current packs/day: 1.00 Types: Cigarettes Smokeless tobacco: Never Vaping Use Vaping status: Never Used Substance Use Topics Alcohol use: No Drug use: Not Currently REVIEW OF SYSTEMS Full 10 Review of Systems done and negative unless stat (more content not included)... [facility] 01-31-2025 History of Present illness Narrative Images from the original note were not included. INFECTIOUS DISEASE WOUND CENTER CONSULT PATIENT NAME: Anmol Reynolds DATE OF CONSULTATION: 01/31/2025 REASON FOR CONSULTATION: Chronic osteomyelitis of the sacrum on MRI HISTORY OF PRESENT ILLNESS: The patient is a 64-year-old male with past medical history of diabetes mellitus and spinal cord injury leading to paralysis who has had a chronic nonhealing sacral wound. An MRI was performed due to the nonhealing nature of the wound and showed chronic osteomyelitis of S5 segment. He denies any fevers or chills. No current culture data is available to me PAST MEDICAL HISTORY Diagnosis Date Arthritis Chronic low back pain 11/26/2021 Chronic pain of right ankle 11/26/2021 Diabetes ([facility]) Elevated CA 19-9 level 08/21/2021 Epidural abscess ([facility]) 01/04/2022 MRSA bacteremia 11/27/2021 Neuropathy Nicotine use disorder, F17.2 06/14/2019 Pilonidal cyst with abscess 12/31/2020 Pilonidal cyst without abscess 05/29/2020 Pyelonephritis 11/27/2021 Sciatica Severe protein-calorie malnutrition ([facility]) 09/04/2021 Type 2 diabetes mellitus with hyperglycemia, with long-term current use of insulin ([facility]) 01/18/2021 Ureteral stone 11/25/2021 UTI (urinary tract infection) 11/26/2021 Vertebral osteomyelitis ([facility]) 01/04/2022 PAST SURGICAL HISTORY Procedure Laterality Date BACK SURGERY HX I & D OF PERIANAL ABSCESS, SIMPLE 05/04/2020 in ER INC/DRAINAGE OF PERINEAL ABSCESS 06/13/[address] Franklin JOINT REPLACEMENT HX ankle surgery right ORTHOPEDICS SURGERY HX ALLERGIES ALLERGIES No Known Allergies CURRENT OUTPATIENT MEDICATIONS mirtazapine (REMERON) 15 mg tablet Take 1 tablet by mouth daily at bedtime. gabapentin (NEURONTIN) 300 mg capsule Take 2 capsules by mouth three times daily for 180 days. insulin glargine 100 unit/mL (3 mL) Inject 45 Units subcutaneously every morning. insulin lispro 100 unit/mL injection Inject 8 Units subcutaneously w MEALS. insulin lispro 100 unit/mL injection Inject 0-28 Units subcutaneously three times daily before meals. ADMINISTER CORRECTIONAL INSULIN REGARDLESS OF MEAL OR NUTRITION INTAKE Scale CUSTOM If Blood Glucose (mg/dL) is: Less than 110 Give 0 units 111-150 Give 0 units 151-200 Give 14 units 201-250 Give 18 units 251-300 Give 20 units 301-350 Give 22 units 351-400 Give 28 units Greater than 400 Give 28 units and Notify Provider Notify provider if 2 consecutive blood glucose values in the previous 24 hours are greater than 250 mg/dL and there have been no changes to the insulin regimen in the previous 24 hours. polyethylene glycol 3350 17 gram packet Take 1 Packet by mouth twice daily. Dissolve dose in 4 - 8 ounces of liquid and take as directed. ASCORBIC ACID ORAL Take 500 mg by mouth twice daily. ferrous sulfate 325 mg (65 mg iron) tablet Take 325 mg by mouth once daily. bisacodyl EC (DULCOLAX) 5 mg EC tablet Take 1 tablet by mouth twice daily. hydrOXYzine HCl (ATARAX) 25 mg tablet Take 1 tablet by mouth every 6 hours as needed (Anxiety). melatonin 3 mg tablet Take 3 tablets by mouth daily at bedtime. potassium chloride ER (K-DUR, KLOR-CON) 20 mEq tablet Take 1 tablet by mouth once daily. simethicone, chewable (MYLICON) 80 mg chewable tablet Take 1 tablet by mouth four times daily as needed. aspirin 81 mg chewable tablet 1 tablet by ORAL/FEEDING TUBE route once daily. enoxaparin (LOVENOX) 40 mg/0.4 mL Inject 0.4 mL subcutaneously q 24 HR. docusate sodium (COLACE) 100 mg capsule Take 1 capsule by mouth twice daily. tamsulosin (FLOMAX) 0.4 mg Take 1 capsule by mouth once daily. cyclobenzaprine (FLEXERIL) 10 mg tablet Take 1 tablet by mouth three times daily. hyoscyamine sublingual (LEVSIN SL) 0.125 mg Dissolve 1 tablet under the tongue every 8 hours as needed for up to 5 days. alogliptin benzoate (ALOGLIPTIN ORAL) Take 25 mg by mouth once daily. oxycodone HCl (OXYCODONE ORAL) Take 15 mg by mouth three times daily. HYDROmorphone (DILAUDID) 4 mg tablet Take 4 mg by mouth every 4 hours as needed for pain. senna-docusate (SENNA-S) 8.6-50 mg per tablet Take 1 tablet by mouth twice daily. naloxone 4 mg/actuation nasal spray (NARCAN) Use 1 spray in one nostril as needed for overdose. May repeat every 2 to 3 min in alternating nostrils until medical assistance is available artificial tear, Hypromellose, 0.3 % drop Use 1 Drop in both eyes as needed. bisacodyl (DULCOLAX) 10 mg supp 1 Suppository by RECTAL route once daily as needed. No family history on file. Social History Tobacco Use Smoking status: Every Day Current packs/day: 1.00 Types: Cigarettes Smokeless tobacco: Never Vaping Use Vaping status: Never Used Substance Use Topics Alcohol use: No Drug use: Not Currently REVIEW OF SYSTEMS Full 10 Review of Systems done and negative unless stated in HPI. PHYSICAL EXAM: Vital signs: stable, afeb General: alert, oriented, NAD Lungs: bilaterally clear to auscultation Heart: regular rate and rhythm Abdomen: soft, non tender, non distended, BS+ Extremities: no swollen joints Skin: no rash Sacral wound, small, without any surrounding cellulitis, no purulent drainage, no probe to the bone DATA WBC (k/uL) Date Value 05/02/2023 6.18 04/28/2023 5.32 04/27/2023 5.91 11/25/2021 13.30 09/06/2021 5.98 09/05/2021 6.76 Hemoglobin (g/dL) Date Value 05/02/2023 11.6 04/28/2023 11.4 04/27/2023 11.5 11/25/2021 14.0 09/06/2021 13.3 09/05/2021 13.3 PT INR (no units) Date Value 11/25/2021 1.0 09/04/2021 1.0 INR (no units) Date Value 01/14/2022 1.1 01/04/2022 1.0 12/11/2021 1.0 Sodium (mmol/L) Date Value 05/02/2023 138 04/28/2023 137 04/27/2023 137 11/25/2021 131 09/06/2021 136 09/05/2021 137 Potassium (mmol/L) Date Value 05/02/2023 4.0 04/28/2023 3.9 04/27/2023 4.3 11/25/2021 3.6 09/06/2021 3.5 09/05/2021 3.5 CO2 (mmol/L) Date Value 05/02/2023 24 04/28/2023 25 04/27/2023 23 11/25/2021 22 09/06/2021 25 09/05/2021 23 BUN (mg/dL) Date Value 05/02/2023 13 04/28/2023 10 04/27/2023 9 11/25/2021 8 09/06/2021 5 09/05/2021 10 AST (U/L) Date Value 04/23/2023 10 01/06/2022 16 12/04/2021 19 11/25/2021 118 09/06/2021 128 09/05/2021 170 ALT (U/L) Date Value 04/23/2023 11 01/06/2022 12 12/04/2021 37 11/25/2021 152 09/06/2021 265 09/05/2021 325 Bilirubin, Total (mg/dL) Date Value 04/23/2023 0.6 01/06/2022 0.3 12/04/2021 0.4 11/25/2021 0.6 09/06/2021 0.4 09/05/2021 0.6 Alkaline Phosphatase (U/L) Date Value 04/23/2023 135 01/06/2022 116 12/04/2021 276 11/25/2021 241 09/06/2021 238 09/05/2021 297 WSR (mm/hr) Date Value 11/27/2021 93 Sed Rate, Westergren (mm/hr) Date Value 01/04/2022 121 12/15/2021 133 Lactate (mmol/L) Date Value 09/03/2021 0.9 01/18/2021 1.8 06/13/2019 1.3 Lactate (POCT) (mmol/L) Date Value 01/04/2022 1.1 Vancomycin, result (ug/mL) Date Value 01/20/2021 5.0 Vancomycin (ug/mL) Date Value 12/02/2021 13.7 12/01/2021 14.2 11/29/2021 11.2 11/28/2021 5.5 MICROBIOLOGY: Reviewed IMAGING: Reviewed ASSESSMENT AND PLAN Chronic sacral S5 segment osteomyelitis Chronic sacrococcygeal wound, nonhealing Quadriplegia Diabetes mellitus History of smoking RECOMMENDATIONS Check ESR Check CRP Check prealbumin level Reviewed and discussed MRI of the sacrum from 01/04/2025 Chronic osteomyelitis typically does not need to be treated with prolonged antibiotic use and can be treated conservatively with offloading, wound care and improvement of nutrition. The patient reports that the wound has been getting smaller for the last several months without antibiotic treatment. Follow-up in the wound center with infectious disease in 6 weeks for follow-up on the wound or any signs of clinical infection in the area I discussed the plan in detail with the patient and the patient verbalizes understanding and is in agreement. Milad Goodson MD Pager: Nursing Documentation Pertinent Medical History: paraplegia, MRSA, osteomyelitis, UTI, DM2, neuropathy, pyelonephritis, Wound Etiology according to patient: sacrum wound has had for four years per pt Patient arrived via: self in motorized wheelchair Home Care Company/Nursing Facility: [facility] Consent captured for debridement per (Provider) and good until Special Instructions (for example, patient stands at the bedside for exam/dressing): bed Anticoagulant Therapy: aspirin Living Situation (ie... Apartment, house, [facility] Who [facility] with [facility]: facility Who will be performing wound care: wound care nurse Available Support System: mom and daughter In-Home Assist Devices: motorized wheelchair Occupation: ie..Retired or Working: retired Provider seeing patient: Milad Goodson MD __ WOUND ASSESSMENT: Refer to Provider's Wound Assessment Note VASCULAR ASSESSMENT BY PROVIDER: N/A CHF History: no Smoking: yes 6 cigarettes at the most Education: EDEMA: n/a Right foot: Right calf: Left foot: Left Calf: Other: MEASUREMENTS: in CM n/a Right Calf: Right Ankle: Left Calf: Left Ankle: Length: ROGERIO'S Left: Right: Brachial Pressure: HR: WOUND PHOTOGRAPHY: YES x 2 , date taken: 01/31/25 DEBRIDEMENT PROCEDURE BY PROVIDER: Anesthetic Used: N/A applied per color straining bag washer # 1 & 2 Other procedure: Specimen collected: WOUND TREATMENT PER MD ORDER: Wounds cleansed by mechanical debridement to allow provider to visualize wound base WOUND # 1 LOCATION: Sacrum L: 1.4 cm x W: 0.3 cm x D: 0.8 cm Undermining 0200: 0.5 cm 0300: 0.6 cm 0600: 1.0 WOUND # 2 LOCATION:Left ischium L: 1.5 cm x W: 1.8 cm x D: 0.2 cm Cleansed with: vashe Applied to cheyenne-wound skin: skin prep Applied to wound bed: calcium alginate AG Covered and secured with: 4x4 [place] SAP Other: COMPRESSION: N/A DME: Prism order date __ DME: [employer] , PH: [phone] SPECIAL NEEDS: Coordination of care N/A Emotional support N/A OR set-up N/A Pharmaceutical Sales Representative N/A Incontinence needs N/A DISCHARGED in stable condition to: facility in motorized wheelchair PLAN/ORDERS: - Return to the Wound Center to see Milad Goodson MD in 6 weeks. - Blood work ordered please go to any [facility] lab. - Please send patient with medication list at next appointment. - Continue aggressive nutritional support to assist wound healing - CAT Scans & MRI need to be scheduled through Central Scheduling. Call [phone].(If applicable) EDUCATION: The patient/family was instructed how to cleanse the wound(s). Visual demonstration on how to apply the dressing with teach back method. Signs & symptoms of infection were reviewed: Increased redness, swelling, pain, green/yellow drainage, fever and/or chills would all need to be evaluated by a Physician. Patient received typed home-going wound care instructions and has expressed intent to comply. Due to the cold and flu season approaching us, if you have any symptoms such as a cough, fever, chills, nausea, vomiting, diarrhea, and/or body aches, please call and reschedule your appointment in the Wound Center. OTHER EDUCATION by RN: follow up, lab work Education performed regarding lymphedema/edema: Elevation of extremity above the heart for 30 minutes three times daily and as needed Exercise such as writing the ABC's with your toes in the air, walking and/or calf pumps Wearing compression as ordered by provider Diet controlling of sodium as instructed by provider Use of medication to help control edema. UNIVERSAL PROTOCOL / SAFETY CHECKLIST N/a Current HBOT Status: Active or Complete - see screening below WOUND CENTER HYPERBARIC OXYGEN THERAPY SCREENING 1. Is the patient diabetic? (If No, skip to question 5) Yes 2. Does the patient have a lower extremity wound? No 3. Is there exposed/involved tendon or bone? No 4. Has the wound been present for 30 days? Yes If Yes to ALL questions above, consult the Hyperbaric Center 5. Has the patient been diagnosed with osteomyelitis? Yes 6. Has the patient had a previous skin graft or flap at the wound? No 7. Has the patient had or been offered vascular intervention/evaluation? Yes 8. Does the patient have a wound at an amputation site? No 9. Has the patient had radiation therapy at the site of the problem? No If Yes to ANY of questions 5-9, consult the Hyperbaric Center Rj Brooks RN/fm documented in this encounter [facility] 01-31-2025 Note HNO ID: [id number] Author: RJ BROOKS RN Service: ? Author Type: Registered Nurse Type: Progress Notes Filed: 01/31/2025 14:59 Note Text: Nursing Documentation Pertinent Medical History: paraplegia, MRSA, osteomyelitis, UTI, DM2, neuropathy, pyelonephritis, Wound Etiology according to patient: sacrum wound has had for four years per pt Patient arrived via: self in motorized wheelchair Home Care Company/Nursing Facility: [facility] Consent captured for debridement per (Provider) and good until Special Instructions (for example, patient stands at the bedside for exam/dressing): bed Anticoagulant Therapy: aspirin Living Situation (ie... Apartment, house, [place] Who lives with patient: facility Who will be performing wound care: wound care nurse Available Support System: mom and daughter In-Home Assist Devices: motorized wheelchair Occupation: ie..Retired or Working: retired Provider seeing patient: Milad Goodson MD __ WOUND ASSESSMENT: Refer to Provider's Wound Assessment Note VASCULAR ASSESSMENT BY PROVIDER: N/A CHF History: no Smoking: yes 6 cigarettes at the most Education: EDEMA: n/a Right foot: Right calf: Left foot: Left Calf: Other: MEASUREMENTS: in CM n/a Right Calf: Right Ankle: Left Calf: Left Ankle: Length: ROGERIO'S Left: Right: Brachial Pressure: HR: WOUND PHOTOGRAPHY: YES x 2 , date taken: 01/31/25 DEBRIDEMENT PROCEDURE BY PROVIDER: Anesthetic Used: N/A applied per color straining bag washer # 1 AND 2 Other procedure: Specimen collected: WOUND TREATMENT PER MD ORDER: Wounds cleansed by mechanical debridement to allow provider to visualize wound base WOUND # 1 LOCATION: Sacrum L: 1.4 cm x W: 0.3 cm x D: 0.8 cm Undermining 0200: 0.5 cm 0300: 0.6 cm 0600: 1.0 WOUND # 2 LOCATION:Left ischium L: 1.5 cm x W: 1.8 cm x D: 0.2 cm Cleansed with: vashe Applied to [place]-wound skin: skin prep Applied to wound bed: calcium alginate AG Covered and secured with: 4x4 [place] SAP Other: COMPRESSION: N/A DME: Prism order date __ DME: [employer] , PH: [phone] SPECIAL NEEDS: Coordination of care N/A Emotional support N/A OR set-up N/A Pharmaceutical Sales Representative N/A Incontinence needs N/A DISCHARGED in stable condition to: facility in motorized wheelchair PLAN/ORDERS: - Return to the Wound Center to see Milad Goodson MD in 6 weeks. - Blood work ordered please go to [facility] lab. - Please send patient with medication list at next appointment. - Continue aggressive nutritional support to assist wound healing - CAT Scans AND MRI need to be scheduled through Central Scheduling. Call [phone].(If applicable) EDUCATION: The patient/family was instructed how to cleanse the wound(s). Visual demonstration on how to apply the dressing with teach back method. Signs AND symptoms of infection were reviewed: Increased redness, swelling, pain, green/yellow drainage, fever and/or chills would all need to be evaluated by a Physician. Patient received typed home-going wound care instructions and has expressed intent to comply. Due to the cold and flu season approaching us, if you have any symptoms such as a cough, fever, chills, nausea, vomiting, diarrhea, and/or body aches, please call and reschedule your appointment in the Wound Center. OTHER EDUCATION by RN: follow up, lab work Education performed regarding lymphedema/edema: Elevation of extremity above the heart for 30 minutes three times daily and as needed Exercise such as writing the ABC's with your toes in the air, walking and/or calf pumps Wearing compression as ordered by provider Diet controlling of sodium as instructed by provider Use of medication to help control edema. ____ UNIVERSAL PROTOCOL / SAFETY CHECKLIST N/a Current HBOT Status: Active or Complete - see screening below WOUND CENTER HYPERBARIC OXYGEN THERAPY SCREENING 1. Is the patient diabetic? (If No, skip to question 5) Yes 2. Does the patient have a lower extremity wound? No 3. Is there exposed/involved tendon or bone? No 4. Has the wound been present for 30 days? Yes If Yes to ALL questions above, consult the Hyperbaric Center 5. Has the patient been diagnosed with osteomyelitis? Yes 6. Has the patient had a previous skin graft or flap at the wound? No 7. Has the patient had or been offered vascular intervention/evaluation? Yes 8. Does the patient have a wound at an amputation site? No 9. Has the patient had radiation therapy at the site of the problem? No If Yes to ANY of questions 5-9, consult the Hyperbaric Center Rj Brooks RN/juan josé [facility] 01-04-2025 History of Present illness Narrative Radiology Service Progress Note DATE OF SERVICE: January 04, 2025 TIME: 8:46 AM PATIENT WEIGHT: 181LBS PATIENT IDENTITY VERIFICATION COMPLETED USING TWO (2) STANDARD IDENTIFIERS: Name and Date of confirmed by patient verbally. FALL SCREENING: Has the patient had 2 falls in the last year or 1 fall with injury or currently using an Ambulatory Assistive Device (Walker, Cane, Wheelchair, Crutches, etc.)? Yes, Patient High Risk for Falls What interventions were put in place to prevent falls during this visit? Non-Skid Socks Used PATIENT GENDER DATA: Assigned male at ALLERGIES: Reviewed and unchanged CONTRAST ALLERGY: No EXAM: MRI - CONTRAST TYPE: GROUP II IV SITE: Ambulatory: A peripheral IV was started in the Left antecubital site with a Angio cath: 22 gauge. IV SITE APPEARANCE: Clean,Dry and Intact SIGNATURE: Jovany Johnston RN PATIENT NAME: Anmol Given DATE: January 04, 2025 TIME: 8:46 AM Radiology Service Progress Note DATE OF SERVICE: January 04, 2025 TIME: 8:49 AM PATIENT IDENTITY VERIFICATION COMPLETED USING TWO (2) STANDARD IDENTIFIERS: Name and Date of confirmed by patient verbally and Name and Date of confirmed by identification band. FALL SCREENING: Has the patient had 2 falls in the last year or 1 fall with injury or currently using an Ambulatory Assistive Device (Walker, Cane, Wheelchair, Crutches, etc.)? Yes, Patient High Risk for Falls What interventions were put in place to prevent falls during this visit? Non-Skid Socks Used, Yellow "Falls Risk Wristband" Applied, Instructed Patient to Call for Help if Needed, and Increased Observations by Caregivers PATIENT GENDER DATA: Assigned male at PATIENT RELEVANT IMPLANT DATA REVIEWED: Yes PATIENT PRESENTS WITH AN IMPLANTABLE OR ATTACHED APPOINTMENT CLERK: No ALLERGIES: Reviewed and unchanged CONTRAST ALLERGY: NO. EXAM: MRI - CONTRAST TYPE: GROUP II PERIPHERAL IV DATA: RAD RN IV RADIOLOGY DEPARTMENT: MR; Exam(s) Completed: Spine: Sacrum/Coccyx SIGNATURE: LIZ Roth PATIENT NAME: Anmol Given DATE: January 04, 2025 TIME: 8:49 AM documented in this encounter [facility] 01-04-2025 Note HNO ID: [id number] Author: AMBROSIO BAUGH RT(R) Service: Radiology Author Type: Technologist Type: Progress Notes Filed: 01/04/2025 08:50 Note Text: Radiology Service Progress Note DATE OF SERVICE: January 04, 2025 TIME: 8:49 AM PATIENT IDENTITY VERIFICATION COMPLETED USING TWO (2) STANDARD IDENTIFIERS: Name and Date of confirmed by patient verbally and Name and Date of confirmed by identification band. FALL SCREENING: Has the patient had 2 falls in the last year or 1 fall with injury or currently using an Ambulatory Assistive Device (Walker, Cane, Wheelchair, Crutches, etc.)? Yes, Patient High Risk for Falls What interventions were put in place to prevent falls during this visit? Non-Skid Socks Used, Yellow "Falls Risk Wristband" Applied, Instructed Patient to Call for Help if Needed, and Increased Observations by Caregivers PATIENT GENDER DATA: Assigned male at PATIENT RELEVANT IMPLANT DATA REVIEWED: Yes PATIENT PRESENTS WITH AN IMPLANTABLE OR ATTACHED APPOINTMENT CLERK: No ALLERGIES: Reviewed and unchanged CONTRAST ALLERGY: NO. EXAM: MRI - CONTRAST TYPE: GROUP II PERIPHERAL IV DATA: RAD RN IV RADIOLOGY DEPARTMENT: MR; Exam(s) Completed: Spine: Sacrum/Coccyx SIGNATURE: LIZ Roth PATIENT NAME: Anmol Given DATE: January 04, 2025 TIME: 8:49 AM [facility] 01-04-2025 Note HNO ID: [id number] Author: JOVANY JOHNSTON RN Service: Radiology Author Type: Registered Nurse Type: Progress Notes Filed: 01/04/2025 08:47 Note Text: Radiology Service Progress Note DATE OF SERVICE: January 04, 2025 TIME: 8:46 AM PATIENT WEIGHT: 181LBS PATIENT IDENTITY VERIFICATION COMPLETED USING TWO (2) STANDARD IDENTIFIERS: Name and Date of confirmed by patient verbally. FALL SCREENING: Has the patient had 2 falls in the last year or 1 fall with injury or currently using an Ambulatory Assistive Device (Walker, Cane, Wheelchair, Crutches, etc.)? Yes, Patient High Risk for Falls What interventions were put in place to prevent falls during this visit? Non-Skid Socks Used PATIENT GENDER DATA: Assigned male at ALLERGIES: Reviewed and unchanged CONTRAST ALLERGY: No EXAM: MRI - CONTRAST TYPE: GROUP II IV SITE: Ambulatory: A peripheral IV was started in the Left antecubital site with a Angio cath: 22 gauge. IV SITE APPEARANCE: Clean,Dry and Intact SIGNATURE: Jovany Johnston RN PATIENT NAME: Anmol Given DATE: January 04, 2025 TIME: 8:46 AM [facility] 11-08-2024 History of Present illness Narrative Images from the original note were not included. Documentation: Mode: Video Consent: This visit was initiated by the patient. Audio and visual communication was utilized in real-time. I confirmed understanding of risks and benefits of telehealth visits and obtained consent to proceed with the telemedicine visit. Location of Patient: Nursing Facility Time-Based Billing Justifications: Charting in Epic Patient visit (including performing a medically appropriate exam) Obtaining history (or reviewing separately obtained history) SPINAL CORD INJURY CLINIC Visit date: 11/08/2024 PCP: No primary care provider on file. CC: Problem focused follow up of spinal cord injury and resultant complications HPI: Name: Anmol Reynolds Age: [age] year old Sex: male 06/13/2023 SCI Data Injury Date 10/05/2021 Injury Etiology Non-traumatic NLI T11 AIS A Patient was unaccompanied Previously seen for CMG, recommended to continue flomax and indwelling catheter - ordered CT Stone and pending Urology appt Interim HPI since last visit: - since changing SNF, Oxycodone changed fro 40mg TID to 15mg QID and added lyrica. -- reports electric pain, burning in BLE. Shocks that come intermittently, day or night, sometimes increased with activity. Interrupts sleep and function. -- taking lyrica 600/day, cymbalta 60mg/day, nortriptyline 50mg/day - catheter trauma and still with hematuria -- reports Urology appt was scheduled and cancelled but never rescheduled - pending MRI for wound per pcp. Small but non-healing. Kristine Howell overseeing. Current Outpatient Medications Medication Sig Dispense Refill Potassium Chloride 10 % SOLN nortriptyline (PAMELOR) 50 MG capsule 1 cap(s) orally once daily at bedtime tamsulosin (FLOMAX) 0.4 MG capsule Hyoscyamine Sulfate SL 0.[address] 0.125 mg under the tongue every 8 hours as needed. duloxetine (CYMBALTA) 60 MG capsule ferrous sulfate 325 (65 Fe) MG tablet Take 325 mg by mouth daily (with breakfast). HYDROmorphone (DILAUDID) 4 MG tablet imipenem-cilastatin (PRIMAXIN) 250 MG injection mirtazapine (REMERON) 7.5 MG tablet Multiple Vitamin (multivitamins) capsule Take 1 Capsule by mouth daily. zinc sulfate (ZINCATE) 220 (50 Zn) MG capsule Take 220 mg by mouth daily. oxycodone (ROXICODONE) 15 MG immediate release tablet pregabalin (LYRICA) 200 MG capsule Take 200 mg by mouth 3 times daily. insulin lispro (HumaLOG) 100 UNIT/ML injection Inject 0-28 Units under the skin. insulin glargine (LANTUS SOLOSTAR/BASAGLAR KWIKPEN) 100 UNIT/ML pen Inject 45 Units under the skin. cyclobenzaprine (FLEXERIL) 10 MG tablet No current facility-administered medications for this visit. No Known Allergies SCI REVIEW OF SYSTEMS No data to display OBJECTIVE Labs (deferred to PCP) CBC No lab values to display. BMP (last 3 years, up to 8 values) No lab values to display. LIPIDS No lab values to display. Lab Results Component Value Date HBA1C 6.5 (H) 01/23/2022 No results found for: "VITD25" There were no vitals filed for this visit. General: Alert, No acute distress HEENT: hearing normal Neck: Symmetrical CV: well-perfused extremities Resp: normal respiratory effort, symmetrical chest rise Abd: non-distended last BMI is undetermined because no height found and no weight found Psych: Conversational, good eye contact Skin: Intact where observed MSK: No focal swelling 06/13/2024 SCI Motor Score Right C5 5 Right C6 5 Right C7 5 Right C8 5 Right T1 5 Right L2 0 Right L3 0 Right L4 0 Right L5 0 Right S1 0 Left C5 5 Left C6 5 Left C7 5 Left C8 5 Left T1 5 Left L2 0 Left L3 0 Left L4 0 Left L5 0 Left S1 0 UE Motor Score Total 50 LE Motor Score Total 0 Motor Score Total 50 NLI T11 AIS A ASSESSMENT Anmol Reynolds is a 64 year old male here for 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 1. Paraplegia (HCC) 2. Neurogenic bladder 3. Gross hematuria 4. Neuropathic pain 5. Pressure injury of skin, unspecified injury stage, unspecified location No orders or meds were signed during this encounter There are no Patient Instructions on file for this visit. Very important to follow up with Urologist due to continued ongoing gross hematuria - Previously ordered CT Renal but can defer to Urology judgement Could increase nortriptyline for superior neuropathic pain control. Would not increase others including oxycodone Agree with MRI in setting of 3 year old unhealed wound. Return to Clinic: Follow up in about 3 months (around 02/05/2025) for in-person visit with [facility]. Faisal Simeon DO 11/08/2024 documented in this encounter [facility] 10-27-2024 Telephone encounter Note Returned call unable to leave message doug was out for the day [facility] 10-27-2024 Miscellaneous Notes Returned call unable to leave message doug was out for the day Name of caller: Doug Contact phone number: [phone] Relationship to Patient: [place] Provider: Dr. Gillette Practice: [facility] Chief Complaint/Reason for Call: Doug states she missed a call from the office to schedule the patient and would like a return call. Please review. Best time of day caller can be reached: any Patient advised that office/PCP has 24-48 business hours to return their call: Yes Called and left message to call to reschedule appointment Name of Caller: Doug Contact Reason for Appointment: Please call to r/s cx appt for 10.26.24 due to weather conditions. Follow up for pain management//no showed on 08.04.24// Doug from [facility] appt//medicare medicaid Office Name: [facility] Medication Refills need, if any: n/a Medication Name: n/a documented in this encounter [facility] 10-26-2024 Telephone encounter Note Name of caller: Doug Contact phone number: [phone] Relationship to Patient: Neno Delvalle Provider: Dr. Gillette Practice: [facility] Chief Complaint/Reason for Call: Doug states she missed a call from the office to schedule the patient and would like a return call. Please review. Best time of day caller can be reached: any Patient advised that office/PCP has 24-48 business hours to return their call: Yes [facility] 10-26-2024 Telephone encounter Note Called and left message to call to reschedule appointment [facility] 10-25-2024 Telephone encounter Note Name of Caller: Doug Contact Reason for Appointment: Please call to r/s cx appt for 10.26.24 due to weather conditions. Follow up for pain management//no showed on 08.04.24// Doug from [facility] appt//medicare medicaid Office Name: [facility] Medication Refills need, if any: n/a Medication Name: n/a [facility] 09-30-2024 Instructions Faisal Simeon DO - 09/30/2024 1:28 PM EST Completed UDS. Inserted 18Fr 10cc santana Call to schedule appt with Urology Dr Jorge Patel MD (Surgeon) [address] [place] [address] scan given recurrent blood in urine POST URODYNAMIC TESTING DISCHARGE INSTRUCTIONS: It is normal to have some burning and tenderness with urination for the next 24 hours. It is important to drink plenty of fluids for the next day or two, unless restricted for medical reasons. Water is the best fluid to drink. A warm tub bath could also help to ease any discomfort where the catheters where placed. You may continue your diet, medications and activities as normal, unless given other instructions by your doctor. If you experience chills, a fever (temperature greater than 100.5 degrees Fahrenheit) or excessive burning on urination, call the office at [phone] Thursday through Thursday 8:00 AM to 4:30 PM. For emergencies, go the Emergency Room. If you do not already have a follow up appointment scheduled with your physician, call the office at [phone] to schedule one. documented in this encounter [facility] 09-30-2024 History of Present illness Narrative Images from the original note were not included. SPINAL CORD INJURY Urodynamics Clinic Note CC: Urodynamics 09/30/2024 Name: Anmol Reynolds Age: [age] year old Sex: male 06/13/2023 SCI Data Injury Date 10/05/2021 Injury Etiology Non-traumatic NLI T11 AIS A PCP: No primary care provider on file. HPI: Anmol Reynolds is 64 year old male here today for urodynamics testing to help guide diagnosis/management and ensure safe bladder. BLADDER MANAGEMENT Management: Santana catheter Issues: Ureteral stent for hydronephrosis in April 2024. Multiple UTI. On flomax. Catheter trauma Recently with catheter pulled last month resulting in hematuria. However with chronic gross hematuria. In SNF Changed q2-4 weeks UTI 2-3 times per year Medical or surgical Urologic history (not related to SCI): Some premorbid noctiuria (BPH?), Stent in 04/2024 (see above) Sensory awareness is altered. Unknown about filling (chronic santana). Sensation with cath trauma and scrotum but not with penis or cath change. Bladder emptying method: santana Frequency of volitional bladder emptying: NA Frequency of NON-volitional bladder emptying: urethral discharge Uses External Urine collecting system: Diapers Current Bladder medications: Flomax Former Bladder medications: Uses 18 Fr catheter Patient is mixed in/continent. Needs assistance. Current S/S of UTI: None (usual symptoms unknown) Hx AD: None Lower Urinary Tract Impairment/Awareness Urinary Tract Impairment Unrelated to Spinal Cord Lesion: Yes (Comment) Awareness of the Need to Empty the Bladder: Unknown Bladder Emptying (Main) - Select Maximum of Two Bladder Emptying: Indwelling catheter Indwelling Catheter: Transurethral Emptyings/Leakage/Appliances/Drugs /Symptoms Average Number of Voluntary Bladder Emptyings per 24 Hours During the Last Week: 0 Any Involuntary Urine Leakage (Incontinence) Within the Last Four Weeks: Not applicable Collecting Appliances for Urinary Incontinence: Yes, diaper/pad Any Drugs with Possible Influence on the Urinary Tract Within the Last Four Weeks: Yes, sphincter/bladder neck relaxant drugs (Alpha adrenergic blockers, etc. (Not intrasphincter injections)) Any Change in Lower Urinary Tract Symptoms Within the Last Year: Yes Other relevant history: Last [facility] imaging 04/2024 Last Urology 05/2027 s/p Cystoscopy, cystolithopaxy, bilateral ureteroscopy laser lithotripsy and ureteral stent exchange No current LUTS. Urinalysis: No results found for: "ULEUK", "UNITR", "UGLUCOSE", "URINEBLOOD", "UAPP", "UCOLOR", "UPH", "UPROTEIN", "USG", "UROBILI", URINEBILI Urine Culture (last 1 year) No lab values to display. Medications were not held prior to UDS including flomax Past Medical, Surgical, Family and Social history reviewed. Current Outpatient Medications Medication Sig Dispense Refill nitrofurantoin monohydrate macrocrystal (Macrobid) 100 MG capsule Take 1 Capsule by mouth 2 times daily for 5 days. 10 Capsule 0 Potassium Chloride 10 % SOLN nortriptyline (PAMELOR) 50 MG capsule 1 cap(s) orally once daily at bedtime tamsulosin (FLOMAX) 0.4 MG capsule Hyoscyamine Sulfate SL 0.[address] 0.125 mg under the tongue every 8 hours as needed. duloxetine (CYMBALTA) 60 MG capsule ferrous sulfate 325 (65 Fe) MG tablet Take 325 mg by mouth daily (with breakfast). HYDROmorphone (DILAUDID) 4 MG tablet imipenem-cilastatin (PRIMAXIN) 250 MG injection mirtazapine (REMERON) 7.5 MG tablet Multiple Vitamin (multivitamins) capsule Take 1 Capsule by mouth daily. zinc sulfate (ZINCATE) 220 (50 Zn) MG capsule Take 220 mg by mouth daily. oxycodone (ROXICODONE) 15 MG immediate release tablet pregabalin (LYRICA) 200 MG capsule Take 200 mg by mouth 3 times daily. insulin lispro (HumaLOG) 100 UNIT/ML injection Inject 0-28 Units under the skin. insulin glargine (LANTUS SOLOSTAR/BASAGLAR KWIKPEN) 100 UNIT/ML pen Inject 45 Units under the skin. cyclobenzaprine (FLEXERIL) 10 MG tablet No current facility-administered medications for this visit. No Known Allergies Denies symptomatic fevers, chills, CP, SOB, N, V or change in weakness, numbness tingling. Remaining ROS: All other systems reviewed and are negative. OBJECTIVE General: Alert, No acute distress HEENT: hearing normal Neck: Symmetrical CV: well-perfused extremities Resp: normal respiratory effort, symmetrical chest rise Abd: non-distended, obese Psych: Conversational, good eye contact Skin: Intact where observed MSK: No focal swelling PROCEDURE NOTE: I was present in the exam room for the critical portions of the procedure as above. We reviewed the procedure with patient along with the indications, options, alternatives, risks of having and not having procedure, benefits, and probability of success. We answered the patient's questions. We explained the expected post procedure symptoms including possible dysuria and infection. Pt consented to have procedure. A TIME OUT was performed prior to the procedure using active communication to verify: Correct patient by 2 patient identifiers, Correct Procedure/site, Patient agrees with procedure, Correct site, Correct Patient Position, and Correct Equipment is available. Confirmed with physician, nurse, and patient. Pt was transferred to motorized adjustable exam chair. Pt asked void then PVR was assessed by straight catheterization. 7-Slovenian urodynamic catheter was placed in the bladder and pressure balloon into the rectum or vagina. Perianal electrodes were placed. Cystometrogram was obtained to evaluate bladder pressure, activity, and sensation during filling (as below). Blood pressure was monitored ever 3-5 minutes. After infusion, pt was asked to void again. Pressure flow was obtained to evaluate bladder pressure and abdominal pressure during voiding cycle. PVR was assessed by straight catheterization. Tubes and electrodes were removed and patient was returned to their chair. One time oral post procedural antibiotic was prescribed to [facility] pharmacy. Overall the procedure was well tolerated without complication. BP (HR) Baseline 120/79 Mid study 123/76 Post study Other Urodynamics Bladder Sensation During Filling Cystometry: Reduced Detrusor Function During Filling Cystometry: Normal Maximum Detrusor Pressure During Filling Cystometry (cm H2O): 27 cm H2O Compliance During Filling Cystometry: Low is Less Than 20 mL/cm H2O: Yes (11.7) Detrusor Leak Point Pressure (cm H2O): 51 cm H2O Cystometric Bladder Capacity (mL): 304 mL Detrusor Function During Voiding: Acontractile detrusor Urethral Function During Voiding: Unknown Post Void Residual (mL): 325 mL Storage phase (38707 or 51538/64736) Rate of Fluid infusion, First sensation (Normal 175-250ml), First desire to void (Normal 272-450ml), Strong desire to void (Normal 429-700ml): See scanned report in Media Bladder Sensation During Filling Cystometry: Reduced Cystometric Bladder Capacity (mL): 304 mL Maximum Detrusor Pressure During Filling Cystometry (cm H2O): 27 cm H2O Compliance During Filling Cystometry: Low is Less Than 20 mL/cm H2O: Yes (11.7) Detrusor Function During Filling Cystometry: Normal Detrusor Leak Point Pressure (cm H2O): 51 cm H2O Leaking was observed only with valsalva Voiding Phase (60046/66040) Maximum flow, Pdet at maximum flow, Volume voided: See scanned report in Media EMG Anal/urinary muscle study patch (55220 -71) EMG inconclusive (connection was lost during study). Detrusor Function During Voiding: Acontractile detrusor Urethral Function During Voiding: Unknown Mechanism of voiding: cath The stream was small leak. Post Void Residual (mL): 325 mL 304/26 Impression: Anmol Reynolds is a 64 year old male with chronic paraplegia and resultant sequelae here for urodynamic evaluation. CMG was successfully completed. Results are consistent with neurogenic bladder from SCI characterized by the following: Sensation and control absent Detrusor acontractile Compliance reduced Capacity reduced Plan: 1. Neurogenic bladder 2. Paraplegia (HCC) 3. Urinary retention 4. Gross hematuria Orders & Meds Signed During This Encounter ELECTROMYOGRAPHY STUDIES, ANAL/URETHRAL SPHINCTER, OTHER THAN NEEDLE, ANY TECHNIQUE VOIDING PRESSURE STUDIES; INTRA-ABDOMINAL VOIDING PRESSURE INSERT CATHETER (SANTANA) SIMPLE [47982] COMPLEX CYSTOMETROGRAM CT RENAL STONE nitrofurantoin monohydrate macrocrystal (Macrobid) 100 MG capsule Patient Instructions Completed UDS. Inserted 18Fr 10cc santana Call to schedule appt with Urology Dr Jorge Patel MD (Surgeon) [address] [place] [address] scan given recurrent blood in urine POST URODYNAMIC TESTING DISCHARGE INSTRUCTIONS: It is normal to have some burning and tenderness with urination for the next 24 hours. It is important to drink plenty of fluids for the next day or two, unless restricted for medical reasons. Water is the best fluid to drink. A warm tub bath could also help to ease any discomfort where the catheters where placed. You may continue your diet, medications and activities as normal, unless given other instructions by your doctor. If you experience chills, a fever (temperature greater than 100.5 degrees Fahrenheit) or excessive burning on urination, call the office at [phone] Thursday through Thursday 8:00 AM to 4:30 PM. For emergencies, go the Emergency Room. If you do not already have a follow up appointment scheduled with your physician, call the office at [phone] to schedule one. Catheters: Continue indwelling catheterization Fluid intake: maintaining hydration Medications: contrinue flomax for stent/stones Other: See above Return to Clinic: Follow up in about 4 weeks (around 10/28/2024) for video visit (telehealth). Faisal Simeon DO 09/30/2024 documented in this encounter [facility] 08-22-2024 History of Present illness Narrative Rheumatology New visit Note Referring Physician: No primary care provider on file. Reason for referral: New patient, establish relationship History of present illness: Anmol Reynolds is a 64 year old male with PMH Paraplegia. Referred for osteoporosis evaluation. Found to have sacral insufficiency fracture. Recent DEXA 06/2024 showing OP with lowest T-score -4.6 at the right femoral neck and right total hip. Does not think that he is taking a calcium or vitamin D supplement, but he is not sure what they are giving him at his facility. He eats yogurt daily and drinks milk occasionally. He is not sure if there is a family history of Osteoporosis, but no family history of fragility fracture. Had spinal surgery that was complicated by infection. Had repeat infection to remove hardware. Had a 3rd spinal surgery with fusion and when he awoke he was paralyzed. No dysphagia or GERD. Has a crown that recently broke off and a tooth that recently broke as well. He is going to need tooth extraction at some point. PMH/PSH: Paraplegia; s/p spinal surgery x 3 Social History: Current smoker 10 cigarettes daily, No EtOH Family History: No rheumatologic family history Meds: Per med list Allergies: No Known Allergies Past Medical History: There is no previous medical history on file. Past Surgical History: There is no previous surgical history on file. Social History: Social History Socioeconomic History Marital status: Unknown Social Drivers of Health Financial Resource Strain: Low Risk (04/24/2023) Received from [facility] Overall Financial Resource Strain (CARDIA) Difficulty of Paying Living Expenses: Not hard at all Food Insecurity: No Food Insecurity (05/18/2024) Received from [facility] Hunger Vital Sign Worried About Running Out of Food in the Last Year: Never true Ran Out of Food in the Last Year: Never true Transportation Needs: No Transportation Needs (05/18/2024) Received from [facility] PRAPARE - Transportation Lack of Transportation (Medical): No Lack of Transportation (Non-Medical): No Intimate Partner Violence: Not At Risk (05/18/2024) Received from [facility] Humiliation, Afraid, Rape, and Kick questionnaire Fear of Current or Ex-Partner: No Emotionally Abused: No Physically Abused: No Sexually Abused: No Family History: No family history on file. Medications: Current Outpatient Medications on File Prior to Visit Medication Sig Dispense Refill Potassium Chloride 10 % SOLN nortriptyline (PAMELOR) 50 MG capsule 1 cap(s) orally once daily at bedtime tamsulosin (FLOMAX) 0.4 MG capsule Hyoscyamine Sulfate SL 0.[address] 0.125 mg under the tongue every 8 hours as needed. duloxetine (CYMBALTA) 60 MG capsule ferrous sulfate 325 (65 Fe) MG tablet Take 325 mg by mouth daily (with breakfast). HYDROmorphone (DILAUDID) 4 MG tablet imipenem-cilastatin (PRIMAXIN) 250 MG injection mirtazapine (REMERON) 7.5 MG tablet Multiple Vitamin (multivitamins) capsule Take 1 Capsule by mouth daily. zinc sulfate (ZINCATE) 220 (50 Zn) MG capsule Take 220 mg by mouth daily. oxycodone (ROXICODONE) 15 MG immediate release tablet pregabalin (LYRICA) 200 MG capsule Take 200 mg by mouth 3 times daily. insulin lispro (HumaLOG) 100 UNIT/ML injection Inject 0-28 Units under the skin. insulin glargine (LANTUS SOLOSTAR/BASAGLAR KWIKPEN) 100 UNIT/ML pen Inject 45 Units under the skin. cyclobenzaprine (FLEXERIL) 10 MG tablet No current facility-administered medications on file prior to visit. PHYSICAL EXAMINATION: Awake, alert, and in NAD Laying in bed Breathing comfortably on room air LABS: CBC No lab values to display. BMP (last 1 year, up to 8 values) No lab values to display. LFT's (last 3 years, up to 8 values) No lab values to display. No results found for: "ESR" No results found for: "CRP" Imaging: DEXA 06/2024: FINDINGS: T score is -3.9 for the bone mineral density of 0.498 g/cm2 for the left femoral neck. T score is -4.6 for the bone mineral density of 0.398 g/cm2 for the right femoral neck. T score is -4.2 for the bone mineral density of 0.480 g/cm2 for the total left hip. T score is -4.6 for the bone mineral density of 0.424 g/cm2 for the total right hip. T score is 2.6 for the bone mineral density of 1.107 g/cm2 for the left radius 33 %. IMPRESSION: 1. The lowest measured bone mineral density site is the right femoral neck and total right hip and is osteoporosis based on its T score of -4.6. The fracture risk is high. 2. The FRAX model estimates the ten year probability of an osteoporotic related fracture to be 46.7 % and the ten year probability of a hip fracture to be 27.3 %, based on the bone mineral density of the bilateral femoral necks and history of adult fracture. ASSESSMENT/PLAN: nAmol Reynolds is a 64 year old male with PMH Paraplegia. He has severe Osteoporosis with lowest T-score -4.6 at the right hip and presence of sacral insufficiency fracture. Paraplegia is a risk, but only present for past 2.5 years and not sure that is the only cause of his severe OP. Given his severe OP with fragility fracture and need for dental extractions I would recommend Forteo or Tymlos. He is amenable. [facility] [place] to get labs ordered Will check BMP, Vit D, PTH, SPEP Plan for Forteo if labs ok. Follow up 3 months or sooner PRN Giuliano Shultz DO documented in this encounter [facility] 08-12-2024 Telephone encounter Note Spoke with [facility] where pt resides and given the date and time of SPEECH LANGUAGE PATHOLOGIST video visit with Dr. Shultz at 8:20 am on 08/22/24. This information will be relayed to pt. [facility] 08-12-2024 Miscellaneous Notes [address]oke with [facility] where pt resides and given the date and time of SPEECH LANGUAGE PATHOLOGIST video visit with Dr. Shultz at 8:20 am on 08/22/24. This information will be relayed to pt. documented in this encounter [facility] 08-01-2024 Note Addended by: FAISAL SIMEON on: 08/01/2024 02:57 PM Modules accepted: Level of Service [facility] 08-01-2024 Note Addended by: FAISAL SIMEON on: 08/01/2024 02:57 PM Modules accepted: Level of Service [facility] 08-01-2024 Miscellaneous Notes Addended by: FAISAL SIMEON on: 08/01/2024 02:57 PM Modules accepted: Level of Service documented in this encounter [facility] 08-01-2024 Instructions Howard Dhaliwal MD - 08/01/2024 9:30 AM EDT -Continue PT/OT -Please follow your appoitment with pain team and rheumatology -You are scheduled for bladder study on 09/30/24 -continue scheduled bowel care daily documented in this encounter [facility] 07-31-2024 History of Present illness Narrative Images from the original note were not included. Documentation: Mode: Video Consent: This visit was initiated by the patient. Audio and visual communication was utilized in real-time. I confirmed understanding of risks and benefits of telehealth visits and obtained consent to proceed with the telemedicine visit. Location of Patient: Nursing Facility Time-Based Billing Justifications: Charting in Epic Patient visit (including performing a medically appropriate exam) Obtaining history (or reviewing separately obtained history) SPINAL CORD INJURY CLINIC Visit date: 08/01/2024 PCP: No primary care provider on file. CC: Comprehensive follow up of spinal cord injury and resultant complications HPI: Name: Anmol Reynolds Age: [age] year old Sex: male 06/13/2023 SCI Data Injury Date 10/05/2021 Injury Etiology Non-traumatic NLI T11 AIS A Patient is a 63 yo with h/o paraplegia following spinal surgery ~2 yrs ago in [place] . In 2019, pt had his first back surgery performed by [facility] which was an interbody fusion. 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 At that point, the hospital took the hardware out and did not replace it with the goal of treating the infection. 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 After the infection was treated, [facility] extended his fusion, decompressed the back, and replaced all hardware. At that time he lost all motor and sensation to his lower extremities. He was independent uptill december 2021 till his last spine surgery two year ago.Since 2021 he is in care home and he changes 5 care home so far. Currently SNF [facility]. Last seen on 06/13/24 in clinic and recommendations was: -Continue PT/OT -Bowel care: schedule bowel care once/day (either after breakfast or dinner) - using suppository and manual stimulation over commode chair will be more helpful than over bed . - Continue skin care - Follow [facility] service consult( we requested today ) for benefits eligibility - Bladder: We ordered today Urodynamic study for your bladder evaluation (to see your bladder status post spinal cord injury) Return to Clinic: Follow up in about 6 weeks (around 07/25/2024) for video visit (telehealth). Patient was accompanied by none . The patient gave permission to discuss their medical information, including PHI, in their presence. -Neuropathic pain Both legs on pregabalin 200mg TID , following with pain med. Will have appointment on 08/04 -Bowel care schedule once day every morning - on the bed -Sacral wound healing- being followed with wound care at care home. -Continued PT/OT in care home -Spine team see him after MRI spine as per patient and they ordered DXA scan -Recent DEXA-Osteoprosis- refefered to rehumatology by Dr mejia(spine team)- rheumatology will see him -We discuss with him about option of participation in adaptive sports Medication, PMHx/PSHx, Fam Hx, Allergy, Problem List, Immunization reconciliation completed Current Outpatient Medications Medication Sig Dispense Refill Potassium Chloride 10 % SOLN nortriptyline (PAMELOR) 50 MG capsule 1 cap(s) orally once daily at bedtime tamsulosin (FLOMAX) 0.4 MG capsule Hyoscyamine Sulfate SL 0.[address] 0.125 mg under the tongue every 8 hours as needed. duloxetine (CYMBALTA) 60 MG capsule ferrous sulfate 325 (65 Fe) MG tablet Take 325 mg by mouth daily (with breakfast). HYDROmorphone (DILAUDID) 4 MG tablet imipenem-cilastatin (PRIMAXIN) 250 MG injection mirtazapine (REMERON) 7.5 MG tablet Multiple Vitamin (multivitamins) capsule Take 1 Capsule by mouth daily. zinc sulfate (ZINCATE) 220 (50 Zn) MG capsule Take 220 mg by mouth daily. oxycodone (ROXICODONE) 15 MG immediate release tablet pregabalin (LYRICA) 200 MG capsule Take 200 mg by mouth 3 times daily. insulin lispro (HumaLOG) 100 UNIT/ML injection Inject 0-28 Units under the skin. insulin glargine (LANTUS SOLOSTAR/BASAGLAR KWIKPEN) 100 UNIT/ML pen Inject 45 Units under the skin. cyclobenzaprine (FLEXERIL) 10 MG tablet No current facility-administered medications for this visit. No Known Allergies No past medical history on file. No past surgical history on file. 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 Dependent for transfer. Able to manual wheelchair independently SCI REVIEW OF SYSTEMS BOWEL MANAGEMENT Management: Bowel care schedule once day every morning - on the bed Issues: BLADDER MANAGEMENT Management: Santana catheter Issues: Urethral stent for hydronephrosis. Multiple UTI. On flomax. Catheter trauma SEXUALITY Not discussed this visit Active: Issues: SPASTICITY No spasticity or spasms reported Severity/Freq: not severe Impair Function: not Management: flexeril SKIN Prior issues: Sacral area (stage 4), legs and feet early Current issues: No issue CARDIOVASCULAR AD Details: Nil Orthostatic: No issue H/o VTE: No PULMONARY MANAGEMENT Pulm Toilet: NA Sleep Apnea: No Issues, no snoring CARDIOMETABOLIC MANAGEMENT Wt loss/gain: Weight gain 40Ib since last year PAIN/MSK Neuropathic: Both legs on pregabalin 200mg TID , following with pain med. Will have appointment on 08/04 MSK Pain: No issues Function/QoL: Affected BONE HEALTH H/o Fx/HO: no history since paraplegic Osteoporosis: - dxa- osteoporosis - will be seen by rheumatology as per record and patient Psychiatric: ongoing depression or anxiety and managed with medications All other systems reviewed and are negative. OBJECTIVE Labs/Imaging/Consults Reviewed DXA: ordered by Spine team done on 07/01/24 IMPRESSION: 1. The lowest measured bone mineral density site is the right femoral neck and total right hip and is osteoporosis based on its T score of -4.6. The fracture risk is high. 2. The FRAX model estimates the ten year probability of an osteoporotic related fracture to be 46.7 % and the ten year probability of a hip fracture to be 27.3 %, based on the bone mineral density of the bilateral femoral necks and history of adult fracture. Renal Imaging: CT abdomen UDS/CMG: scheduled on 09/30/24 TMC: NA Labs: CBC No lab values to display. BMP (last 3 years, up to 8 values) 05/02/2023 04/28/2023 04/27/2023 04/26/2023 04/25/2023 04/23/2023 01/23/2022 01/22/2022 12:56 PM 4:12 AM 1:04 AM 5:40 AM 5:45 AM 2:52 PM 6:33 AM 1:42 AM Na 138 137 137 137 135 138 133 133 Cl 105 102 104 103 102 103 99 99 CO2 24 25 23 24 23 26 25 25 Glu 128 137 181 186 97 134 196 161 BUN 13 10 9 11 15 10 6 9 Cr 0.53 0.54 0.54 0.48 0.62 0.64 0.36 0.36 Ca 8.8 8.6 8.6 8.6 8.5 8.6 8.1 8.2 LFT's (last 3 years, up to 8 values) 04/23/2023 01/06/2022 12/04/2021 11/25/2021 09/06/2021 09/05/2021 09/04/2021 09/04/2021 2:52 PM 3:05 AM 12:21 PM 4:00 AM 3:54 AM 6:05 AM 6:00 PM 5:43 AM T Bili 0.6 0.3 0.4 0.6 0.4 0.6 0.5 0.4 LIPIDS No lab values to display. Lab Results Component Value Date HBA1C 6.5 (H) 01/23/2022 No results found for: "VITD25" There were no vitals filed for this visit. Limited exam as Video visit: General: Alert, No acute distress HEENT: hearing normal Neck: Symmetrical ASSESSMENT Anmol Reynolds is a 63 year old male here for chronic follow up of non traumatic paraplegia and resultant sequelae. 1. Paraplegia (HCC) 2. Neuropathic pain 3. Neurogenic bowel 4. Reflex neurogenic bladder No orders or meds were signed during this encounter Patient Instructions -Continue PT/OT -Please follow your appoitment with pain team and rheumatology -You are scheduled for bladder study on 09/30/24 -continue scheduled bowel care daily Return to Clinic: Follow up in about 3 months (around 11/01/2024) for in-person visit. Howard Dhaliwal MD Spinal Cord Injury Medicine Fellow Attending / Teaching Physician Note I have seen and evaluated the patient. I have personally obtained the thomas and critical portions of the history and physical exam. I have reviewed the resident/fellow's documentation and discussed the patient with the resident/fellow. I agree with the resident/fellow's medical decision-making, and the note above represents our combined efforts. Faisal Simeon DO documented in this encounter [facility] 07-27-[address] Grady murphy to Rheumatology. Spoke with patient's brother today who referred me to call [facility], where patient resides, to see about arranging transportation for patient to a Rheumatology appt (not scheduled yet). I spoke with a healthcare worker at [facility] and let her know we can also schedule a video visit with Dr. Hare. She will call me back after discussing with patient. [facility] 07-27-2024 Telephone encounter Note Referral from Dr. Mejia to Rheumatology. Spoke with patient's brother today who referred me to call [facility], where patient resides, to see about arranging transportation for patient to a Rheumatology appt (not scheduled yet). I spoke with a healthcare worker at [facility] and let her know we can also schedule a video visit with Dr. Hare. She will call me back after discussing with patient. [facility] 07-27-2024 Miscellaneous Notes Referral from Dr. Mejia to Rheumatology. Spoke with patient's brother today who referred me to call [facility], where patient resides, to see about arranging transportation for patient to a Rheumatology appt (not scheduled yet). I spoke with a healthcare worker at [place] and let her know we can also schedule a video visit with Dr. Hare. She will call me back after discussing with patient. documented in this encounter [facility] 07-13-[address] Mejia referral to Rheumatology for Osteoporosis. Spoke with brother who transports pt to and from appts since pt resides in extended care facility. Brother is available on Fridays to transport pt to appts. Will call him back with options. [facility] 07-13-2024 Telephone encounter Note This is a Dr Mejia referral to Rheumatology for Osteoporosis. Spoke with brother who transports pt to and from appts since pt resides in extended care facility. Brother is available on Fridays to transport pt to appts. Will call him back with options. [facility] 07-13-2024 Miscellaneous Notes This is a Dr Mejia referral to Rheumatology for Osteoporosis. Spoke with brother who transports pt to and from appts since pt resides in extended care facility. Brother is available on Fridays to transport pt to appts. Will call him back with options. documented in this encounter [facility] 06-16-2024 Note Addended by: FAISAL SIMEON on: 06/16/2024 09:13 PM Modules accepted: Level of Service [facility] 06-16-2024 Miscellaneous Notes Addended by: FAISAL SIMEON on: 06/16/2024 09:13 PM Modules accepted: Level of Service documented in this encounter [facility] 06-16-2024 Telephone encounter Note Scheduled appointment [facility] 06-16-2024 Miscellaneous Notes Scheduled appointment Doug is calling in again wanting to rescheduled they can be reached at the office anytime before 3pm. Please advise and thank you LM for Doug to call the office to discuss the pt Name of caller: Doug Contact phone number: [phone] Relationship to Patient: neno Provider: chepe Practice: pain management Chief Complaint/Reason for Call: doug is calling in wanting to speak to the main office. Please advise and thank you Best time of day caller can be reached: any Patient advised that office/PCP has 24-48 business hours to return their call: Yes documented in this encounter [facility] 06-16-2024 Telephone encounter Note Doug is calling in again wanting to rescheduled they can be reached at the office anytime before 3pm. Please advise and thank you [facility] 06-15-2024 Telephone encounter Note LM for Doug to call the office to discuss the pt [facility] 06-15-2024 Telephone encounter Note Name of caller: Doug Contact phone number: [phone] Relationship to Patient: neno Provider: chepe Practice: pain management Chief Complaint/Reason for Call: doug is calling in wanting to speak to the main office. Please advise and thank you Best time of day caller can be reached: any Patient advised that office/PCP has 24-48 business hours to return their call: Yes [facility] 06-14-2024 Telephone encounter Note RTC to pt, left voice mail. Vladimir Asher [facility] Crime Scene Evidence Technician [phone] [facility] 06-14-2024 Miscellaneous Notes RTC to pt, left voice mail. Vladimir Asher [facility] Crime Scene Evidence Technician [phone] documented in this encounter [facility] 06-13-2024 Instructions Howard Dhaliwal MD - 06/13/2024 12:29 PM EDT -Continue PT/OT -Bowel care: schedule bowel care once/day (either after breakfast or dinner) - using suppository and manual stimulation over commode chair will be more helpful than over bed . - Continue skin care - Follow [facility] service consult( we requested today ) for benefits eligibility - Bladder: We ordered today Urodynamic study for your bladder evaluation (to see your bladder status post spinal cord injury) documented in this encounter [facility] 06-13-2024 Instructions Howard Dhaliwal MD - 06/13/2024 12:29 PM EDT -Continue PT/OT -Bowel care: schedule bowel care once/day (either after breakfast or dinner) - using suppository and manual stimulation over commode chair will be more helpful than over bed . - Continue skin care - Follow [facility] service consult( we requested today ) for benefits eligibility - Bladder: We ordered today Urodynamic study for your bladder evaluation (to see your bladder status post spinal cord injury) documented in this encounter [facility] 06-13-2024 History of Present illness Narrative Patient was identified by name and date of . Evelio Grey documented in this encounter [facility] 06-13-2024 History of Present illness Narrative Patient was identified by name and date of . Evelio Grey Images from the original note were not included. SPINAL CORD INJURY CLINIC Visit date: 06/13/2024 PCP: No primary care provider on file. CC: Comprehensive follow up of spinal cord injury and resultant complications HPI: Name: Anmol Reynolds Age: [age] year old Sex: male 06/13/2024 SCI Data Injury Date 10/05/2021 Injury Etiology Non-traumatic NLI T11 AIS A Patient is a 63 yo with h/o paraplegia following spinal surgery ~2 yrs ago in [place] . In 2019, pt had his first back surgery performed by [facility] which was an interbody fusion. 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 At that point, the hospital took the hardware out and did not replace it with the goal of treating the infection. 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 After the infection was treated, [facility] extended his fusion, decompressed the back, and replaced all hardware. At that time he lost all motor and sensation to his lower extremities. He was independent uptill december 2021 till his last spine surgery two year ago Patient was accompanied by brother . The patient gave permission to discuss their medical information, including PHI, in their presence. Since 2021 he is in care home and he changes 5 care home so far. Currently SNF in [facility]. He has Ureter stent - recently at [facility] Medication, PMHx/PSHx, Fam Hx, Allergy, Problem List, Immunization reconciliation completed Current Outpatient Medications Medication Sig Dispense Refill Potassium Chloride 10 % SOLN nortriptyline (PAMELOR) 50 MG capsule 1 cap(s) orally once daily at bedtime tamsulosin (FLOMAX) 0.4 MG capsule Hyoscyamine Sulfate SL 0.[address] 0.125 mg under the tongue every 8 hours as needed. duloxetine (CYMBALTA) 60 MG capsule ferrous sulfate 325 (65 Fe) MG tablet Take 325 mg by mouth daily (with breakfast). HYDROmorphone (DILAUDID) 4 MG tablet imipenem-cilastatin (PRIMAXIN) 250 MG injection mirtazapine (REMERON) 7.5 MG tablet Multiple Vitamin (multivitamins) capsule Take 1 Capsule by mouth daily. zinc sulfate (ZINCATE) 220 (50 Zn) MG capsule Take 220 mg by mouth daily. oxycodone (ROXICODONE) 15 MG immediate release tablet pregabalin (LYRICA) 200 MG capsule Take 200 mg by mouth 3 times daily. insulin lispro (HumaLOG) 100 UNIT/ML injection Inject 0-28 Units under the skin. insulin glargine (LANTUS SOLOSTAR/BASAGLAR KWIKPEN) 100 UNIT/ML pen Inject 45 Units under the skin. cyclobenzaprine (FLEXERIL) 10 MG tablet No current facility-administered medications for this visit. No Known Allergies No past medical history on file. No past surgical history on file. 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 Dependent for transfer. Able to manual wheelchair independently SCI REVIEW OF SYSTEMS BOWEL MANAGEMENT Management: No specific management, in diaper Issues: BLADDER MANAGEMENT Management: Santana catheter Issues: Urethral stent for hydronephrosis. Multiple UTI. On flomax. Catheter trauma SEXUALITY Not discussed this visit Active: Issues: SPASTICITY No spasticity or spasms reported Severity/Freq: not severe Impair Function: not Management: flexeril SKIN Prior issues: Sacral area (stage 4), legs and feet early Current issues: No issue CARDIOVASCULAR AD Details: Nil Orthostatic: No issue H/o VTE: No PULMONARY MANAGEMENT Pulm Toilet: NA Sleep Apnea: No Issues, no snoring CARDIOMETABOLIC MANAGEMENT Wt loss/gain: Weight gain 40Ib since last year PAIN/MSK Neuropathic: Both legs on pregabalin 200mg TID MSK Pain: No issues Function/QoL: Affected BONE HEALTH H/o Fx/HO: no history since paraplegic Osteoporosis: - Dexa ordered Psychiatric: ongoing depression or anxiety and managed with medications All other systems reviewed and are negative. OBJECTIVE Labs/Imaging/Consults Reviewed DXA: ordered by Spine team Renal Imaging: CT abdomen UDS/CMG: TMC: NA Labs: CBC No lab values to display. BMP (last 3 years, up to 8 values) 05/02/2023 04/28/2023 04/27/2023 04/26/2023 04/25/2023 04/23/2023 01/23/2022 01/22/2022 12:56 PM 4:12 AM 1:04 AM 5:40 AM 5:45 AM 2:52 PM 6:33 AM 1:42 AM Na 138 137 137 137 135 138 133 133 Cl 105 102 104 103 102 103 99 99 CO2 24 25 23 24 23 26 25 25 Glu 128 137 181 186 97 134 196 161 BUN 13 10 9 11 15 10 6 9 Cr 0.53 0.54 0.54 0.48 0.62 0.64 0.36 0.36 Ca 8.8 8.6 8.6 8.6 8.5 8.6 8.1 8.2 LFT's (last 3 years, up to 8 values) 04/23/2023 01/06/2022 12/04/2021 11/25/2021 09/06/2021 09/05/2021 09/04/2021 09/04/2021 2:52 PM 3:05 AM 12:21 PM 4:00 AM 3:54 AM 6:05 AM 6:00 PM 5:43 AM T Bili 0.6 0.3 0.4 0.6 0.4 0.6 0.5 0.4 LIPIDS No lab values to display. Lab Results Component Value Date HBA1C 6.5 (H) 01/23/2022 No results found for: "VITD25" Vitals: 06/13/24 1056 BP: 114/72 Pulse: 85 Resp: 18 SpO2: 98% General: Alert, No acute distress HEENT: hearing normal Neck: Symmetrical CV: warm, well-perfused extremities Resp: normal respiratory effort, symmetrical chest rise Abd: non-distended obese Wt Readings from Last 3 Encounters: No data found for Wt last BMI is undetermined because no height found and no weight found Psych: Conversational, good eye contact Skin: Warm dry skin, no rashes noted on face or arms MSK: No visible deformities or focal swelling 06/13/2024 SCI Motor Score Right C5 5 Right C6 5 Right C7 5 Right C8 5 Right T1 5 Right L2 0 Right L3 0 Right L4 0 Right L5 0 Right S1 0 Left C5 5 Left C6 5 Left C7 5 Left C8 5 Left T1 5 Left L2 0 Left L3 0 Left L4 0 Left L5 0 Left S1 0 UE Motor Score Total 50 LE Motor Score Total 0 Motor Score Total 50 NLI T11 AIS A Date 06/13/2024 See Flowsheet R L C5 - EF 5 5 C6 - WE 5 5 C7 - EE 5 5 C8 - FDP 5 5 T1 - ADM 5 5 L2 - HF 0 0 L3 - KE 0 0 L4 - DF 0 0 L5 - EHL 0 0 S1 - PF 0 0 Sensory (PP) Sensory (LT) Spasticity MAS -No appreciable spasticity Reflexes NT Clonus --ve ASSESSMENT Anmol Reynolds is a 63 year old male here for chronic follow up of non traumatic paraplegia and resultant sequelae. 1. Paraplegia (HCC) 2. Reflex neurogenic bladder Orders & Meds Signed During This Encounter [facility] SERVICE REQUEST PM&R Urodynamics Patient Instructions -Continue PT/OT -Bowel care: schedule bowel care once/day (either after breakfast or dinner) - using suppository and manual stimulation over commode chair will be more helpful than over bed . - Continue skin care - Follow [facility] service consult( we requested today ) for benefits eligibility - Bladder: We ordered today Urodynamic study for your bladder evaluation (to see your bladder status post spinal cord injury) Return to Clinic: Follow up in about 6 weeks (around 07/25/2024) for video visit (telehealth). Howard Dhaliwal MD 06/13/2024 Patient education: Done about his spinal cord injury and resultant sequelae , current NLI , Bowel care and bladder issues. His potential to able to transfer himself. About different SCI research enrolment options Attending / Teaching Physician Note I have seen and evaluated the patient. I have personally obtained the thomas and critical portions of the history and physical exam. I have reviewed the resident/fellow's documentation and discussed the patient with the resident/fellow. I agree with the resident/fellow's medical decision-making, and the note above represents our combined efforts. Faisal Simeon DO documented in this encounter [facility] 05-22-2024 Note Formatting of this n ote might be different from the original. Called [facility]lower's dispatch, new ETA is around 1900. [facility] 05-22-2024 Note Formatting of this n ote might be different from the original. Called [facility]lower's dispatch, new ETA is around 1900. [facility] 05-22-2024 Miscellaneous Notes Called [facility]lower's dispatch, new ETA is around 1900. CARE COORDINATION DAILY NOTE/UPDATE Discharge Plan: Neno Delvalle This TCC was tasked to follow this patient through the weekend assisting with discharge planning. Chart was reviewed. Met with patient at bedside to confirm if he would like to return to [facility]. Patient agreeable to return. Messaged attending and infectious disease to see if patient is able to discharge today. Discharge order placed. Scheduled discharge transportation in [employer], pickling grader time confirmed for 05/22 at 1600. Bedside nurse notified of transport and will update patient and family of plan Facility notified of transportation time and discharge documents including After Visit Summary, MAR, LABS, and Vitals were uploaded into careport for review. Problem: Knowledge Deficit Goal: Patient/family/caregiver demonstrates understanding of disease process, treatment plan, medications, and discharge instructions Outcome: Adequate for Discharge Problem: Potential for Compromised Skin Integrity Goal: Skin Integrity is Maintained or Improved Outcome: Adequate for Discharge Goal: Nutritional status is improving Outcome: Adequate for Discharge Problem: Urinary Incontinence Goal: Perineal skin integrity is maintained or improved Outcome: Adequate for Discharge Problem: Pain Goal: My pain/discomfort is manageable Outcome: Adequate for Discharge Problem: Safety Goal: Patient will be injury free during hospitalization Outcome: Adequate for Discharge Goal: I will remain free of falls Outcome: Adequate for Discharge Problem: Daily Care Goal: Daily care needs are met Outcome: Adequate for Discharge Problem: Psychosocial Needs Goal: Demonstrates ability to cope with hospitalization/illness Outcome: Adequate for Discharge Goal: Collaborate with me, my family, and caregiver to identify my specific goals Outcome: Adequate for Discharge Problem: Discharge Barriers Goal: My discharge needs are met Outcome: Adequate for Discharge Problem: Problem Interventions Goal: Assess Nutritional Intake Outcome: Adequate for Discharge Problem: Safety Goal: Patient will be injury free during hospitalization Outcome: Progressing Problem: Safety Goal: I will remain free of falls Outcome: Progressing Problem: Knowledge Deficit Goal: Patient/family/caregiver demonstrates understanding of disease process, treatment plan, medications, and discharge instructions Outcome: Progressing Problem: Potential for Compromised Skin Integrity Goal: Skin Integrity is Maintained or Improved Outcome: Progressing Goal: Nutritional status is improving Outcome: Progressing Problem: Urinary Incontinence Goal: Perineal skin integrity is maintained or improved Outcome: Progressing Problem: Pain Goal: My pain/discomfort is manageable Outcome: Progressing Problem: Safety Goal: Patient will be injury free during hospitalization Outcome: Progressing Goal: I will remain free of falls Outcome: Progressing Problem: Daily Care Goal: Daily care needs are met Outcome: Progressing Problem: Psychosocial Needs Goal: Demonstrates ability to cope with hospitalization/illness Outcome: Progressing Goal: Collaborate with me, my family, and caregiver to identify my specific goals Outcome: Progressing Problem: Discharge Barriers Goal: My discharge needs are met Outcome: Progressing Problem: Problem Interventions Goal: Assess Nutritional Intake Outcome: Progressing Problem: Knowledge Deficit Goal: Patient/family/caregiver demonstrates understanding of disease process, treatment plan, medications, and discharge instructions Outcome: Progressing Problem: Potential for Compromised Skin Integrity Goal: Skin Integrity is Maintained or Improved Outcome: Progressing Goal: Nutritional status is improving Outcome: Progressing Chart reviewed. ID following for CoNS postive BC and proteus UTI. Repeat BC pending. +iv cefepime, final course not yet determined. Current discharge plan is return to [facility]. Will return skilled only if needed, otherwise he can return under his med[facility]. TCC to continue to follow. Return Referral placed to [facility] via [facility] per TCC request. Await review and response regarding ability to accept. TCC notified. Care Managment Initial Assessment Date: 05/19/2024 Patient Name: Anmol Reynolds : 1960 Patient Information Source of Information: Patient Cognition/Language: WFL - Within Functional Limits Permission given to speak with patient pharmaceutical sales representative/caregiver as indicated: Yes Confirmation of Payer with patient/family: Yes Payer Name: Medicare A/B; [place] Medicaid : No Confirmation of Primary Care Physician: Confirmed PCP Name: Tab Nieves MD at facility Seen in last 2 years?: Yes Primary Caregiver: Other (Comment) (facility staff) If assistance needed, confirmed caregiver ready, willing and able to care for patient at discharge: No (n/a) Confirmed with: Living Arrangements Facility: [facility] Plan to Return: Yes Lives with: Alone, Other (Comment) (at ECF) Support Systems: Children, Family members, Comments (Other) (facility staff) Activities of Daily Living Ambulation: Total Care (patient paraplegic waist down) Bathing/Dressing: Assistance Elimination/Continence/Toileting: Assistance Feeding: Independent Who Assists with Activities of Daily Living: Instrumental Activities of Daily Living Prescription Coverage: Yes Pharmacy Used: facility manages Medication Management: Transportation/Shopping: Assistance Provider Transportation/Shopping Assistance Provider Name: cot transport Transportation Mode: Needs Assistance with Transportation at Discharge: Yes Meal Preparation: Assistance Provider Meal Prep Assistance Provider Name: facility manages Laundry/Cleaning: Assistance Provider Laundry/Cleaning Assistance Provider Name: facility manages Finances/Bill Paying: Communication: Independent Types of Care Services/Equipment Utilized Durable Medical Equipment: Wheelchair (standard or power), Hospital Bed, [place] Lift Patient's Goal/Discharge Plan Patient expects to be discharged to: return to ECF Discharge Planning Actions: Continue to follow, [facility] Facility referral indicated [place] of choice: [place] of choice discussed (choice list not indicated; patient is a return to ECF) Patient's Choice Rights and [employer] and Collaborative Relationships Disclosed as Indicated for Post-Acute Care: Yes Interdisciplinary Team Engagement: Social Work Referral for: Additional Information: Introduced self and role to patient at bedside. Patient admitted with +BC x1 from ECF. Patient with recent bilateral ureteral stent placement 2/2 bilateral hydronephrosis. +chronic santana. +IV abx. Urine and blood cultures pending ID consulted. Patient is a resident at [facility] xfew years. Patient confirmed plan for return. RETAIL [employer] PRO tasked to place return referral. Anticipate discharge in 2-3 days pending medical stability. Patient will need transport. TCC to continue to follow. Vipin Peter RN The patient is Moderately Stable - Low risk of patient condition declining or worsening The patient's goals for the shift include Pain control. The clinical goals for the shift include Patient to remain free of injury for the entirety of the shift. Problem: Knowledge Deficit Goal: Patient/family/caregiver demonstrates understanding of disease process, treatment plan, medications, and discharge instructions Outcome: Progressing documented in this encounter [facility] 05-22-2024 Nurse Note Transport arranged for 1600. Belongings packed and paperwork finished. Carlos Montelongo update: 45 minutes. Elly Cormier RN [facility] 05-22-2024 Nurse Note Transport arranged for 1600. Belongings packed and paperwork finished. Carlos Montelongo update: 45 minutes. Elly Cormier RN Santana catheter leaking since last night. Dr. Mahajan paged via secure chat. Catheter to be replaced. Patient informed me that they use a 18 kenyan santana at the care home. A 16 kenyan was previously in. Urology cart was ordered, and a 18 kenyan santana was placed with 500 mL output. Larger balloon, filled with 25 mL. No leaking. Will continue to monitor. Elly Cormier RN documented in this encounter [facility] 05-22-2024 Nurse Note Santana catheter leaking since last night. Dr. Mahajan paged via secure chat. Catheter to be replaced. Patient informed me that they use a 18 kenyan santana at the care home. A 16 kenyan was previously in. Urology cart was ordered, and a 18 kenyan santana was placed with 500 mL output. Larger balloon, filled with 25 mL. No leaking. Will continue to monitor. Elly Cormier RN [facility] 05-22-2024 Note Discharge Summary Anmol Reynolds : 1960 ADMIT DATE: 05/17/2024 DISCHARGE DATE: 05/22/2024 PRIMARY CARE PHYSICIAN: Tab Dupont VISIT STATUS: Admission CODE STATUS: Full Code DISCHARGE DIAGNOSES: Principal Problem: Positive blood cultures HOSPITAL COURSE: Anmol is a 63 y.o. male with past medical history below who presented to ED for evaluation of positive blood cultures. Patient is paraplegic due to spinal surgery that was done 2 years ago patient was evaluated and admitted on 04/14/2024 was noted to be in septic shock complicated UTI with bacteremia. Blood cultures were positive at that time for Proteus, providencia, morganella patient was treated by ID with PICC line that was placed on 04/20/2024 with ertapenem. Patient had repeat blood cultures that were drawn at facility on 05/13/2024, results are noted to be positive for gram-positive cocci in clusters. Dr. Moyer of infectious disease was consulted at that time and recommended patient come to the hospital for IV antibiotics. Admitted for further evaluation and management. ID consulted following, cefepime stopped, monitor off antibiotics PT recommends ECF Interval History: 05/22/2024-No overnight issues. Patient is seen and examined Patient is laying in his bed, not in acute distress Denies any new acute complaints Santana was leaking, discussed with RN who will be replacing Santana Case and plan discussed with patient and bedside nurse. All questions answered. Past Medical History: Medical History Past Medical History: Diagnosis Date Abnormal posture Abscess, perineum Anemia BPH (benign prostatic hyperplasia) Chronic back pain Hematuria Hip sprain Hyperlipidemia Hypertension Major depressive disorder, single episode, unspecified MRSA (methicillin resistant staph aureus) culture positive spine 2021 Muscle wasting and atrophy, not elsewhere classified, left lower leg Muscle weakness (generalized) Neuropathy Obstructive and reflux uropathy, unspecified Osteoarthritis Other abnormalities of gait and mobility Other reduced mobility Paraplegia (HCC) Sciatica Spinal stenosis of lumbar region with neurogenic claudication Type 2 diabetes mellitus without complication (CMS/HCC) (HCC) Urinary calculus, unspecified UTI (urinary tract infection) Adult diet Regular 24HR INTAKE/OUTPUT: Intake/Output Summary (Last 24 hours) at 05/22/2024 1013 Last data filed at 05/22/2024 0700 Gross per 24 hour Intake 486 ml Output 500 ml Net -14 ml LABS: CBC: Recent Labs 05/20/24 0605/21/24 0336 05/22/24 0548 WBC 5.5 5.8 6.4 RBC 4.08* 4.04* 4.21* HGB 12.2* 12.4* 12.8* HCT 37.0* 37.5* 38.4* MCV 90.7 92.8 91.2 RDW 15.1* 15.0 15.1* PLT 197 192 209 BMP: Recent Labs 05/20/24 0605/21/24 0336 05/22/24 0434 NA 134* 136 135 K 4.0 3.9 3.9 CL 109* 109* 107 CO2 21* 18* 22 BUN 10 11 13 CREATININE 0.50* 0.46* 0.54* GLUCOSE 207* 157* 144* CALCIUM 8.5 8.5 8.4 ANIONGAP 4 8 5 LIVER PROFILE: Recent Labs 05/20/24 0605/21/24 0336 05/22/24 0434 AST 23 24 25 ALT 22 21 22 BILITOT 0.6 0.5 0.6 ALKPHOS 153* 142* 151* PROT 6.4 6.2* 6.3 PT/INR: No results for input(s): "PROTIME", "INR" in the last 72 hours. CARDIAC ENZYMES: No results for input(s): "TROPONINI" in the last 72 hours. Procalcitonin: No results found for: "PROCAL" COVID-19 PCR: No results for input(s): "COVID19" in the last 72 hours. Objective: Vitals: BP 128/76 (BP Location: Right arm, Patient Position: Lying) Pulse 70 Temp 36 ?C (96.8 ?F) (Temporal) Resp 16 Ht 6' 3" (1.905 m) Wt 213 lb (96.6 kg) SpO2 99% BMI 26.62 kg/m? Pulse Ox: SpO2 Av.5 % Min: 94 % Max: 99 % Supplemental O2: Physical Exam HENT: Head: Normocephalic and atraumatic. Mouth/Throat: Mouth: Mucous membranes are moist. Cardiovascular: Rate and Rhythm: Normal rate and regular rhythm. Pulmonary: Effort: Pulmonary effort is normal. Abdominal: Palpations: Abdomen is soft. Skin: General: Skin is warm and dry. Neurological: Mental Status: He is alert and oriented to person, place, and time. Comments: Paraplegia Medications: Scheduled PRN Scheduled Meds aspirin, 81 mg, Oral, Daily docusate sodium, 100 mg, Oral, BID enoxaparin, 40 mg, SubCUTAneous, Daily insulin glargine, 45 Units, SubCUTAneous, q AM insulin lispro, 0-12 Units, SubCUTAneous, TID WC And insulin lispro, 0-12 Units, SubCUTAneous, Nightly mirtazapine, 7.5 mg, Oral, Nightly oxyCODONE, 15 mg, Oral, 4x daily pregabalin, 200 mg, Oral, TID tamsulosin, 0.4 mg, Oral, Daily therapeutic multivitamin-minerals, 1 tablet, Oral, Daily PRN Meds PRN medications: acetaminophen OR acetaminophen, bisacodyl, calcium carbonate, cyclobenzaprine, dextrose, dextrose, glucagon (rDNA), glucose, HYDROmorphone, naloxone, ondansetron ODT OR ondansetron, polyethylene glycol (PEG) 3350 Continuous Continuous M (more content not included)... [facility] 05-22-2024 Hospital course Narrative Images from the original note were not included. Discharge Summary Anmol Franco Given : 1960 ADMIT DATE: 05/17/2024 DISCHARGE DATE: 05/22/2024 PRIMARY CARE PHYSICIAN: Tab Dupont VISIT STATUS: Admission CODE STATUS: Full Code DISCHARGE DIAGNOSES: Principal Problem: Positive blood cultures HOSPITAL COURSE: Anmol is a 63 y.o. male with past medical history below who presented to ED for evaluation of positive blood cultures. Patient is paraplegic due to spinal surgery that was done 2 years ago patient was evaluated and admitted on 04/14/2024 was noted to be in septic shock complicated UTI with bacteremia. Blood cultures were positive at that time for Proteus, providencia, morganella patient was treated by ID with PICC line that was placed on 04/20/2024 with ertapenem. Patient had repeat blood cultures that were drawn at facility on 05/13/2024, results are noted to be positive for gram-positive cocci in clusters. Dr. Moyer of infectious disease was consulted at that time and recommended patient come to the hospital for IV antibiotics. Admitted for further evaluation and management. ID consulted following, cefepime stopped, monitor off antibiotics PT recommends ECF Interval History: 05/22/2024-No overnight issues. Patient is seen and examined Patient is laying in his bed, not in acute distress Denies any new acute complaints Santana was leaking, discussed with RN who will be replacing Santana Case and plan discussed with patient and bedside nurse. All questions answered. Past Medical History: Medical History Past Medical History: Diagnosis Date Abnormal posture Abscess, perineum Anemia BPH (benign prostatic hyperplasia) Chronic back pain Hematuria Hip sprain Hyperlipidemia Hypertension Major depressive disorder, single episode, unspecified MRSA (methicillin resistant staph aureus) culture positive spine 2021 Muscle wasting and atrophy, not elsewhere classified, left lower leg Muscle weakness (generalized) Neuropathy Obstructive and reflux uropathy, unspecified Osteoarthritis Other abnormalities of gait and mobility Other reduced mobility Paraplegia (HCC) Sciatica Spinal stenosis of lumbar region with neurogenic claudication Type 2 diabetes mellitus without complication (CMS/HCC) (HCC) Urinary calculus, unspecified UTI (urinary tract infection) Adult diet Regular 24HR INTAKE/OUTPUT: Intake/Output Summary (Last 24 hours) at 05/22/2024 1013 Last data filed at 05/22/2024 0700 Gross per 24 hour Intake 486 ml Output 500 ml Net -14 ml LABS: CBC: Recent Labs 05/20/24 0605/21/24 0336 05/22/24 0548 WBC 5.5 5.8 6.4 RBC 4.08* 4.04* 4.21* HGB 12.2* 12.4* 12.8* HCT 37.0* 37.5* 38.4* MCV 90.7 92.8 91.2 RDW 15.1* 15.0 15.1* PLT 197 192 209 BMP: Recent Labs 05/20/24 0605/21/24 0336 05/22/24 0434 NA 134* 136 135 K 4.0 3.9 3.9 CL 109* 109* 107 CO2 21* 18* 22 BUN 10 11 13 CREATININE 0.50* 0.46* 0.54* GLUCOSE 207* 157* 144* CALCIUM 8.5 8.5 8.4 ANIONGAP 4 8 5 LIVER PROFILE: Recent Labs 05/20/24 0605/21/24 03305/22/24 0434 AST 23 24 25 ALT 22 21 22 BILITOT 0.6 0.5 0.6 ALKPHOS 153* 142* 151* PROT 6.4 6.2* 6.3 PT/INR: No results for input(s): "PROTIME", "INR" in the last 72 hours. CARDIAC ENZYMES: No results for input(s): "TROPONINI" in the last 72 hours. Procalcitonin: No results found for: "PROCAL" COVID-19 PCR: No results for input(s): "COVID19" in the last 72 hours. Objective: Vitals: BP 128/76 (BP Location: Right arm, Patient Position: Lying) Pulse 70 Temp 36 C (96.8 F) (Temporal) Resp 16 Ht 6' 3" (1.905 m) Wt 213 lb (96.6 kg) SpO2 99% BMI 26.62 kg/m Pulse Ox: SpO2 Av.5 % Min: 94 % Max: 99 % Supplemental O2: Physical Exam HENT: Head: Normocephalic and atraumatic. Mouth/Throat: Mouth: Mucous membranes are moist. Cardiovascular: Rate and Rhythm: Normal rate and regular rhythm. Pulmonary: Effort: Pulmonary effort is normal. Abdominal: Palpations: Abdomen is soft. Skin: General: Skin is warm and dry. Neurological: Mental Status: He is alert and oriented to person, place, and time. Comments: Paraplegia Medications: Scheduled PRN Scheduled Meds aspirin, 81 mg, Oral, Daily docusate sodium, 100 mg, Oral, BID enoxaparin, 40 mg, SubCUTAneous, Daily insulin glargine, 45 Units, SubCUTAneous, q AM insulin lispro, 0-12 Units, SubCUTAneous, TID WC And insulin lispro, 0-12 Units, SubCUTAneous, Nightly mirtazapine, 7.5 mg, Oral, Nightly oxyCODONE, 15 mg, Oral, 4x daily pregabalin, 200 mg, Oral, TID tamsulosin, 0.4 mg, Oral, Daily therapeutic multivitamin-minerals, 1 tablet, Oral, Daily PRN Meds PRN medications: acetaminophen OR acetaminophen, bisacodyl, calcium carbonate, cyclobenzaprine, dextrose, dextrose, glucagon (rDNA), glucose, HYDROmorphone, naloxone, ondansetron ODT OR ondansetron, polyethylene glycol (PEG) 3350 Continuous Continuous Meds Assessment Data: (CAT1) Reviewed 2 notes from different specialty or health system (each=1). (CAT1) Reviewed 3 or more labs/studies previously ordered by me not previously counted (each=1, panels count as 1). (CAT1) Ordered 3 or more new labs and/or studies (each=1, panels count as 1). (LOW: 2x CAT1 or independent historian MOD: 3x CAT1 or 1x CAT3 EXTENSIVE: 3x CAT1 and 1x CAT3) Acute, acute on chronic, unstable/uncontrolled chronic problems/diagnoses: UTI possibly catheter associated urinary obstruction with bilateral calculi and bilateral hydronephrosis, s/p bilateral ureteral stent placement on 04/20/24 Diabetes mellitus with hyperglycemia Stable chronic problems affecting care, new non-acute diagnoses: Paraplegia Type 2 diabetes mellitus BPH Hypertension Hyperlipidemia Plan As a result of the above findings & factors, the following mgmt was pursued: - santana replaced - urine culture grew Proteus mirabilis - blood cultures NGTD -ID following, stop cefepime, monitor off antibiotics SIGNIFICANT DIAGNOSTIC STUDIES: CONSULTANTS: ID RECOMMENDED NEXT STEPS: Transfer to SNF DISCHARGE MEDICATIONS: Medication List ASK your doctor about these medications acetaminophen 325 MG tablet Commonly known as: Tylenol acetic acid 0.25 % irrigation alogliptin 25 MG tablet Commonly known as: Nesina aspirin 81 MG EC tablet * bisacodyl 5 MG EC tablet Commonly known as: Dulcolax * bisacodyl 5 mg split suppository Commonly known as: Dulcolax ciprofloxacin 500 MG tablet Commonly known as: Cipro clotrimazole-betamethasone cream Commonly known as: Lotrisone cyclobenzaprine 10 MG tablet Commonly known as: Flexeril docusate sodium 100 MG tablet Commonly known as: Colace ferrous sulfate 325 (65 Fe) MG tablet HYDROmorphone 4 MG tablet Commonly known as: Dilaudid insulin glargine 100 UNIT/ML pen Commonly known as: Lantus Insulin Lispro 100 UNIT/ML solution injection Commonly known as: Humalog MILK OF MAGNESIA PO mirtazapine 7.5 MG tablet Commonly known as: Remeron multivitamin capsule naloxone 4 mg/0.1 mL nasal spray Commonly known as: Narcan oxyCODONE 15 MG immediate release tablet Commonly known as: Roxicodone Ask about: Which instructions should I use? polyethylene glycol (PEG) 3350 17 g packet Commonly known as: Miralax potassium chloride CR 20 MEQ ER tablet Commonly known as: Klor-Con M20 pregabalin 200 MG capsule Commonly known as: Lyrica Take 1 capsule (200 mg) by mouth 3 times daily for 7 days. Ask about: Which instructions should I use? Pure & Gentle Lubricant 3 MG/ML solution Generic drug: Hypromellose sodium chloride 0.9 % irrigation solution tamsulosin 0.4 MG 24 hr capsule Commonly known as: Flomax Tums 500 MG chewable tablet Generic drug: calcium carbonate * This list has 2 medication(s) that are the same as other medications prescribed for you. Read the directions carefully, and ask your doctor or other care provider to review them with you. DIET: Adult diet Regular ACTIVITY: No restriction. COMPLEXITY OF FOLLOW UP: [] Moderate Complexity: follow up within 7-14 calendar days (51734) [] Severe Complexity: follow up within 7 calendar days (81154) FOLLOW UP TESTING, PENDING RESULTS OR REFERRALS AT TRANSITIONAL CARE VISIT: [] Yes [] No PENDING STUDIES: DISPOSITION: Skilled Facility FACILITY/HOME CARE AGENCY NAME: Follow up with No follow-up provider specified. INSTRUCTIONS TO MA/SW: Please call patient on day after discharge (must document patient contacted within 2 business days of discharge). FOLLOW UP QUESTIONS FOR MA/SW: 1. Did you get medications filled and taking them as instructed from discharge? 2. Are you following your discharge instructions from your hospital stay? 3. Please confirm patient is scheduled for a follow up appointment within the above time frame. DISCHARGE TIME: I spent 31 minutes on education, discharge planning SIGNED: Parvin Mahajan MD 05/22/2024, 1:52 PM documented in this encounter [facility] 05-22-2024 Note Hospitalist Progress Note 05/22/2024 Subjective: Admit Date: 05/17/2024 PCP: Tab Dupont Room#: W6-625/W6-625 A Brief Hospital course: Anmol is a 63 y.o. male with past medical history below who presented to ED for evaluation of positive blood cultures. Patient is paraplegic due to spinal surgery that was done 2 years ago patient was evaluated and admitted on 04/14/2024 was noted to be in septic shock complicated UTI with bacteremia. Blood cultures were positive at that time for Proteus, providencia, morganella patient was treated by ID with PICC line that was placed on 04/20/2024 with ertapenem. Patient had repeat blood cultures that were drawn at facility on 05/13/2024, results are noted to be positive for gram-positive cocci in clusters. Dr. Moyer of infectious disease was consulted at that time and recommended patient come to the hospital for IV antibiotics. Admitted for further evaluation and management. ID consulted following, cefepime stopped, monitor off antibiotics PT recommends ECF Interval History: 05/22/2024-No overnight issues. Patient is seen and examined Patient is laying in his bed, not in acute distress Denies any new acute complaints Santana was leaking, discussed with RN who will be replacing Santana Case and plan discussed with patient and bedside nurse. All questions answered. Past Medical History: Past Medical History: Diagnosis Date Abnormal posture Abscess, perineum Anemia BPH (benign prostatic hyperplasia) Chronic back pain Hematuria Hip sprain Hyperlipidemia Hypertension Major depressive disorder, single episode, unspecified MRSA (methicillin resistant staph aureus) culture positive spine 2021 Muscle wasting and atrophy, not elsewhere classified, left lower leg Muscle weakness (generalized) Neuropathy Obstructive and reflux uropathy, unspecified Osteoarthritis Other abnormalities of gait and mobility Other reduced mobility Paraplegia (HCC) Sciatica Spinal stenosis of lumbar region with neurogenic claudication Type 2 diabetes mellitus without complication (CMS/HCC) (HCC) Urinary calculus, unspecified UTI (urinary tract infection) Adult diet Regular 24HR INTAKE/OUTPUT: Intake/Output Summary (Last 24 hours) at 05/22/2024 1013 Last data filed at 05/22/2024 0700 Gross per 24 hour Intake 486 ml Output 500 ml Net -14 ml LABS: CBC: Recent Labs 05/20/24 0606 05/21/24 0336 05/22/24 0548 WBC 5.5 5.8 6.4 RBC 4.08* 4.04* 4.21* HGB 12.2* 12.4* 12.8* HCT 37.0* 37.5* 38.4* MCV 90.7 92.8 91.2 RDW 15.1* 15.0 15.1* PLT 197 192 209 BMP: Recent Labs 05/20/24 0606 05/21/24 0336 05/22/24 0434 NA 134* 136 135 K 4.0 3.9 3.9 CL 109* 109* 107 CO2 21* 18* 22 BUN 10 11 13 CREATININE 0.50* 0.46* 0.54* GLUCOSE 207* 157* 144* CALCIUM 8.5 8.5 8.4 ANIONGAP 4 8 5 LIVER PROFILE: Recent Labs 05/20/24 0606 05/21/24 0336 05/22/24 0434 AST 23 24 25 ALT 22 21 22 BILITOT 0.6 0.5 0.6 ALKPHOS 153* 142* 151* PROT 6.4 6.2* 6.3 PT/INR: No results for input(s): "PROTIME", "INR" in the last 72 hours. CARDIAC ENZYMES: No results for input(s): "TROPONINI" in the last 72 hours. Procalcitonin: No results found for: "PROCAL" COVID-19 PCR: No results for input(s): "COVID19" in the last 72 hours. Objective: Vitals: BP 128/76 (BP Location: Right arm, Patient Position: Lying) Pulse 70 Temp 36 ?C (96.8 ?F) (Temporal) Resp 16 Ht 6' 3" (1.905 m) Wt 213 lb (96.6 kg) SpO2 99% BMI 26.62 kg/m? Pulse Ox: SpO2 Av.5 % Min: 94 % Max: 99 % Supplemental O2: Physical Exam HENT: Head: Normocephalic and atraumatic. Mouth/Throat: Mouth: Mucous membranes are moist. Cardiovascular: Rate and Rhythm: Normal rate and regular rhythm. Pulmonary: Effort: Pulmonary effort is normal. Abdominal: Palpations: Abdomen is soft. Skin: General: Skin is warm and dry. Neurological: Mental Status: He is alert and oriented to person, place, and time. Comments: Paraplegia Medications: Scheduled PRN aspirin, 81 mg, Oral, Daily docusate sodium, 100 mg, Oral, BID enoxaparin, 40 mg, SubCUTAneous, Daily insulin glargine, 45 Units, SubCUTAneous, q AM insulin lispro, 0-12 Units, SubCUTAneous, TID WC And insulin lispro, 0-12 Units, SubCUTAneous, Nightly mirtazapine, 7.5 mg, Oral, Nightly oxyCODONE, 15 mg, Oral, 4x daily pregabalin, 200 mg, Oral, TID tamsulosin, 0.4 mg, Oral, Daily therapeutic multivitamin-minerals, 1 tablet, Oral, Daily PRN medications: acetaminophen OR acetaminophen, bisacodyl, calcium carbonate, cyclobenzaprine, dextrose, dextrose, glucagon (rDNA), glucose, HYDROmorphone, naloxone, ondansetron ODT OR ondansetron, polyethylene glycol (PEG) 3350 Continuous Assessment Data: (CAT1) Reviewed 2 notes from different specialty or health system (each=1). (CAT1) Reviewed 3 or more labs/studies previously ordered by me not previously counted (each=1, panels c (more content not included)... [facility] 05-22-2024 History of Present illness Narrative Hospitalist Progress Note 05/22/2024 Subjective: Admit Date: 05/17/2024 PCP: Tab Dupont Room#: W6-625/[id number] A Brief Hospital course: Anmol is a 63 y.o. male with past medical history below who presented to ED for evaluation of positive blood cultures. Patient is paraplegic due to spinal surgery that was done 2 years ago patient was evaluated and admitted on 04/14/2024 was noted to be in septic shock complicated UTI with bacteremia. Blood cultures were positive at that time for Proteus, providencia, morganella patient was treated by ID with PICC line that was placed on 04/20/2024 with ertapenem. Patient had repeat blood cultures that were drawn at facility on 05/13/2024, results are noted to be positive for gram-positive cocci in clusters. Dr. Moyer of infectious disease was consulted at that time and recommended patient come to the hospital for IV antibiotics. Admitted for further evaluation and management. ID consulted following, cefepime stopped, monitor off antibiotics PT recommends ECF Interval History: 05/22/2024-No overnight issues. Patient is seen and examined Patient is laying in his bed, not in acute distress Denies any new acute complaints Santana was leaking, discussed with RN who will be replacing Santana Case and plan discussed with patient and bedside nurse. All questions answered. Past Medical History: Past Medical History: Diagnosis Date Abnormal posture Abscess, perineum Anemia BPH (benign prostatic hyperplasia) Chronic back pain Hematuria Hip sprain Hyperlipidemia Hypertension Major depressive disorder, single episode, unspecified MRSA (methicillin resistant staph aureus) culture positive spine 2021 Muscle wasting and atrophy, not elsewhere classified, left lower leg Muscle weakness (generalized) Neuropathy Obstructive and reflux uropathy, unspecified Osteoarthritis Other abnormalities of gait and mobility Other reduced mobility Paraplegia (HCC) Sciatica Spinal stenosis of lumbar region with neurogenic claudication Type 2 diabetes mellitus without complication (CMS/HCC) (HCC) Urinary calculus, unspecified UTI (urinary tract infection) Adult diet Regular 24HR INTAKE/OUTPUT: Intake/Output Summary (Last 24 hours) at 05/22/2024 1013 Last data filed at 05/22/2024 0700 Gross per 24 hour Intake 486 ml Output 500 ml Net -14 ml LABS: CBC: Recent Labs 05/20/24 0606 05/21/24 0336 05/22/24 0548 WBC 5.5 5.8 6.4 RBC 4.08* 4.04* 4.21* HGB 12.2* 12.4* 12.8* HCT 37.0* 37.5* 38.4* MCV 90.7 92.8 91.2 RDW 15.1* 15.0 15.1* PLT 197 192 209 BMP: Recent Labs 05/20/24 0605/21/24 0336 05/22/24 0434 NA 134* 136 135 K 4.0 3.9 3.9 CL 109* 109* 107 CO2 21* 18* 22 BUN 10 11 13 CREATININE 0.50* 0.46* 0.54* GLUCOSE 207* 157* 144* CALCIUM 8.5 8.5 8.4 ANIONGAP 4 8 5 LIVER PROFILE: Recent Labs 05/20/24 0605/21/24 0336 05/22/24 0434 AST 23 24 25 ALT 22 21 22 BILITOT 0.6 0.5 0.6 ALKPHOS 153* 142* 151* PROT 6.4 6.2* 6.3 PT/INR: No results for input(s): "PROTIME", "INR" in the last 72 hours. CARDIAC ENZYMES: No results for input(s): "TROPONINI" in the last 72 hours. Procalcitonin: No results found for: "PROCAL" COVID-19 PCR: No results for input(s): "COVID19" in the last 72 hours. Objective: Vitals: BP 128/76 (BP Location: Right arm, Patient Position: Lying) Pulse 70 Temp 36 C (96.8 F) (Temporal) Resp 16 Ht 6' 3" (1.905 m) Wt 213 lb (96.6 kg) SpO2 99% BMI 26.62 kg/m Pulse Ox: SpO2 Av.5 % Min: 94 % Max: 99 % Supplemental O2: Physical Exam HENT: Head: Normocephalic and atraumatic. Mouth/Throat: Mouth: Mucous membranes are moist. Cardiovascular: Rate and Rhythm: Normal rate and regular rhythm. Pulmonary: Effort: Pulmonary effort is normal. Abdominal: Palpations: Abdomen is soft. Skin: General: Skin is warm and dry. Neurological: Mental Status: He is alert and oriented to person, place, and time. Comments: Paraplegia Medications: Scheduled PRN aspirin, 81 mg, Oral, Daily docusate sodium, 100 mg, Oral, BID enoxaparin, 40 mg, SubCUTAneous, Daily insulin glargine, 45 Units, SubCUTAneous, q AM insulin lispro, 0-12 Units, SubCUTAneous, TID WC And insulin lispro, 0-12 Units, SubCUTAneous, Nightly mirtazapine, 7.5 mg, Oral, Nightly oxyCODONE, 15 mg, Oral, 4x daily pregabalin, 200 mg, Oral, TID tamsulosin, 0.4 mg, Oral, Daily therapeutic multivitamin-minerals, 1 tablet, Oral, Daily PRN medications: acetaminophen OR acetaminophen, bisacodyl, calcium carbonate, cyclobenzaprine, dextrose, dextrose, glucagon (rDNA), glucose, HYDROmorphone, naloxone, ondansetron ODT OR ondansetron, polyethylene glycol (PEG) 3350 Continuous Assessment Data: (CAT1) Reviewed 2 notes from different specialty or health system (each=1). (CAT1) Reviewed 3 or more labs/studies previously ordered by me not previously counted (each=1, panels count as 1). (CAT1) Ordered 3 or more new labs and/or studies (each=1, panels count as 1). (LOW: 2x CAT1 or independent historian MOD: 3x CAT1 or 1x CAT3 EXTENSIVE: 3x CAT1 and 1x CAT3) Acute, acute on chronic, unstable/uncontrolled chronic problems/diagnoses: UTI possibly catheter associated urinary obstruction with bilateral calculi and bilateral hydronephrosis, s/p bilateral ureteral stent placement on 04/20/24 Diabetes mellitus with hyperglycemia Stable chronic problems affecting care, new non-acute diagnoses: Paraplegia Type 2 diabetes mellitus BPH Hypertension Hyperlipidemia Plan As a result of the above findings & factors, the following mgmt was pursued: - santana replaced - urine culture grew Proteus mirabilis - blood cultures NGTD -ID following, stop cefepime, monitor off antibiotics - am labs, replace lytes prn - PT/OT/CM/SW - delirium precautions: increase activity, limit nighttime disturbances, and avoid anticholinergic meds, benzos, etc - DVT prophylaxis: enoxaparin and encourage ambulation Complexity: Acute illness or injury posing a threat to life or body function (HIGH). Risk: Advance Directive: Full Code Anticipated Discharge - Date -2 to 3 days - Location - Skilled Facility - Pending the following -clinical course Total time spent (which include face to face and non face to face encounters) : More than 30 minutes Extended Emergency Contact Information Primary Emergency Contact: GailRonald Mobile Relation: Sibling Secondary Emergency Contact: GAILSUMI Mobile Relation: Daughter Alonsobam Katia Mahajan MD Division of Hospitalist Medicine [facility]patient Medical Services[place] [place] Images from the original note were not included. PHYSICAL THERAPY [facility] Initial Evaluation Name/MRN: Anmol Reynolds ([id number]) Evaluation Date: 05/21/2024 Date of : 1960 Admission Date: 05/17/2024 8:25 PM Age: 63 y.o. [facility]: [facility] Discharge Recommendation: ECF without PT (Patient states he may be interested to going to a different ECF in [place]) Equipment Needed: No Assessment IMPRESSION: Patient is a 63 yo with h/o paraplegia following spinal surgery ~2 yrs ago who was admitted due to positive blood cultures. Patient appears at functional baseline at this time. He reports ECF staff use [employer]rett lift for transfers into his power wheelchair and he is independent with power wheelchair mobility. States therapy has tried working on slide board transfers in the past "but it was too hard." Patient currently able to roll self and scoot self up in bed using bed rails with modif indep. Patient required max A for supine <> sit <> supine with min/mod A needed for seated balance at EOB. States he doesn't sit EOB at baseline. No further PT needs at this time, will discharge PT services. Recommend return to ECF without PT. Admitting Diagnosis: positive blood cultures Prognosis: fair Performance Deficits /Impairments: Increased Pain and Decreased Balance Decision Making: Medium Complexity Subjective RN cleared patient for PT eval. Patient awake in bed, hyperverbal and tangential throughout session requiring cues to maintain focus on tasks at hand, agreeable to therapy eval. Pain: [place]-Grant Pain Ratin = Hurts a little bit Pain Location: BLE Past Medical History: Past Medical History: Diagnosis Date Abnormal posture Abscess, perineum Anemia BPH (benign prostatic hyperplasia) Chronic back pain Hematuria Hip sprain Hyperlipidemia Hypertension Major depressive disorder, single episode, unspecified MRSA (methicillin resistant staph aureus) culture positive spine 2021 Muscle wasting and atrophy, not elsewhere classified, left lower leg Muscle weakness (generalized) Neuropathy Obstructive and reflux uropathy, unspecified Osteoarthritis Other abnormalities of gait and mobility Other reduced mobility Paraplegia ([facility]) Sciatica Spinal stenosis of lumbar region with neurogenic claudication Type 2 diabetes mellitus without complication ([facility]) ([facility]) Urinary calculus, unspecified UTI (urinary tract infection) Past Surgical History: Past Surgical History: Procedure Laterality Date ANKLE SURGERY Right He has a titanium plate to the right ankle KNEE SURGERY Left ACL KNEE SURGERY Left removal of screw LAMINECTOMY Left 10/24/2020 LEFT BILATERAL L2-3-4-5 DECOMPRESSION performed by Opal Vigil MD at [facility] OR ORTHOPEDIC SURGERY Right removal of hardware ankle US PLACE URETAL STENT PERC PRE-EXIST TRACT S&I (HISTORICAL) Bilateral 04/14/2024 Dr. Patel/Bashir Admission Diagnosis: Patient Active Problem List Diagnosis Date Noted Hypertension 01/06/2017 Hyperglycemia 01/06/2017 Hip sprain 01/06/2017 Anxiety 01/06/2017 Positive blood cultures 05/17/2024 Calculus of ureter 05/06/2024 Bladder calculus 05/05/2024 Pressure injury of coccygeal region, stage 3 ([facility]) 04/20/2024 Septic shock ([facility]) 04/14/2024 Lumbar stenosis with neurogenic claudication 10/24/2020 Spinal stenosis of lumbar region with neurogenic claudication 10/24/2020 Nicotine use disorder 10/15/2020 Unspecified osteoarthritis, unspecified site 10/15/2020 Pilonidal cyst without abscess 10/15/2020 Diabetes mellitus without complication (CMS/HCC) (HCC) 10/15/2020 Abnormal finding on EKG 10/15/2020 Other intervertebral disc displacement, lumbar region 10/15/2020 Lumbar radiculopathy 10/04/2020 Herniated nucleus pulposus, L5-S1, left 07/07/2017 Medical Precautions: No active isolations Proper PPE donned/doffed in accordance with facility standards. Fall Risk: Marroquin Fall Risk Score: 35 (Medium Risk) Precautions/Restrictions: Lines/Drains/Airways: santana Fall Precautions Skin care precautions, CAUTI precautions, +alarms Family/Caregiver Present: none Overall Cognitive Status: Grossly WFL, hyperverbal and tangential throughout session Overall Orientation Status: Oriented x4 Hearing: normal Social/Functional History [facility] Assistive Equipment: wheelchair - electric, hospital bed, and everett lift Prior Level of Function ADL Assistance: Needs Assist Ambulation Assistance: Non-Ambulatory Independent with power wheelchair mobility Transfer Assistance: everett lift Objective Lower Extremity Assessment AROM: absent PROM: WFL Strength: 0/5 BLE Sensation: Impaired: reports numbness in BLE, sensation absent to light touch/pressure Balance: Sat EOB with BUE support and min/mod A due to occasional retro LOB. Bed Mobility: Supine to sit: Max Assist Sit to supine: Max Assist Rolling to right: Modified Independent Rolling to left: Modified Independent Scooting: Modified Independent (supine scoot using bed rails) HOB elevated for supine <> sit, required max A to move BLE over EOB, mod A to elevate trunk. Transfers N/T - requires everett lift at F Ambulation Non-ambulatory Outcome Measures AM-PAC How much HELP from another person do you currently need Turning from your back to your side while in a flat bed without using bedrails?: None Moving from lying on your back to sitting on the side of a flat bed without using bedrails?: A Lot Moving to and from a bed to a chair (including a wheelchair)?: Total Standing up from a chair using your arms (wheelchair or bedside chair)?: Total Walking in a hospital room?: Total Stair climbing assessed?: No AM-PAC Inpatient Mobility Raw Score (No Stairs) : 9 JH-HLM JH-HLM Score: Sat at edge of bed Plan No skilled acute PT indicated at this time. Please reconsult should changes occur. Safety/Education Safety Safety Devices in place: call light within reach, left in bed, bed alarm in place, and patient at risk for falls Restraints: No Education Education Given To: patient Education Provided: PT Role, PT Goals, and Plan of Care Education Method: Verbal Barriers to Learning: None Education Outcome: Verbalized Understanding Goals Patient Stated Goal: To go back to ECF so he can get in his wheelchair to go out and smoke Therapy Time Individual Co-treatment Time In 1300 Time Out 1325 Minutes 25 Rylee Childers PT Patient's Physical Therapy Plan of Care supervision is transferred to a [facility] Physical Therapist. Goals and/or treatment plan was established in collaboration with patient/family/other representatives. Hospitalist Progress Note 05/21/2024 Subjective: Admit Date: 05/17/2024 PCP: Tab Dupont Room#: W6-625/W6-625 A Brief Hospital course: Anmol is a 63 y.o. male with past medical history below who presented to ED for evaluation of positive blood cultures. Patient is paraplegic due to spinal surgery that was done 2 years ago patient was evaluated and admitted on 04/14/2024 was noted to be in septic shock complicated UTI with bacteremia. Blood cultures were positive at that time for Proteus, providencia, morganella patient was treated by ID with PICC line that was placed on 04/20/2024 with ertapenem. Patient had repeat blood cultures that were drawn at facility on 05/13/2024, results are noted to be positive for gram-positive cocci in clusters. Dr. Moyer of infectious disease was consulted at that time and recommended patient come to the hospital for IV antibiotics. Admitted for further evaluation and management. ID consulted following, cefepime stopped, monitor off antibiotics PT recommends ECF Interval History: 05/21/2024-No overnight issues. Patient is seen and examined He is resting in his bed without in any acute distress, about to get physical therapy Case and plan discussed with patient and bedside nurse. All questions answered. Past Medical History: Past Medical History: Diagnosis Date Abnormal posture Abscess, perineum Anemia BPH (benign prostatic hyperplasia) Chronic back pain Hematuria Hip sprain Hyperlipidemia Hypertension Major depressive disorder, single episode, unspecified MRSA (methicillin resistant staph aureus) culture positive spine 2021 Muscle wasting and atrophy, not elsewhere classified, left lower leg Muscle weakness (generalized) Neuropathy Obstructive and reflux uropathy, unspecified Osteoarthritis Other abnormalities of gait and mobility Other reduced mobility Paraplegia (HCC) Sciatica Spinal stenosis of lumbar region with neurogenic claudication Type 2 diabetes mellitus without complication (CMS/HCC) (HCC) Urinary calculus, unspecified UTI (urinary tract infection) Adult diet Regular 24HR INTAKE/OUTPUT: Intake/Output Summary (Last 24 hours) at 05/21/2024 0909 Last data filed at 05/20/2024 1800 Gross per 24 hour Intake 240 ml Output -- Net 240 ml LABS: CBC: Recent Labs 05/19/2440605/20/24 0605/21/24 0336 WBC 5.4 5.5 5.8 RBC 3.96* 4.08* 4.04* HGB 12.0* 12.2* 12.4* HCT 35.8* 37.0* 37.5* MCV 90.4 90.7 92.8 RDW 14.9 15.1* 15.0 PLT 212 197 192 BMP: Recent Labs 05/19/2440605/20/24 0606 05/21/24 0336 NA 134* 134* 136 K 3.4* 4.0 3.9 CL 110* 109* 109* CO2 21* 21* 18* BUN 11 10 11 CREATININE 0.44* 0.50* 0.46* GLUCOSE 212* 207* 157* CALCIUM 8.4 8.5 8.5 ANIONGAP 3 4 8 LIVER PROFILE: Recent Labs 05/19/2440605/20/24 0606 05/21/24 0336 AST 29 23 24 ALT 19 22 21 BILITOT 0.6 0.6 0.5 ALKPHOS 155* 153* 142* PROT 6.3 6.4 6.2* PT/INR: No results for input(s): "PROTIME", "INR" in the last 72 hours. CARDIAC ENZYMES: No results for input(s): "TROPONINI" in the last 72 hours. Procalcitonin: No results found for: "PROCAL" COVID-19 PCR: No results for input(s): "COVID19" in the last 72 hours. Objective: Vitals: BP 110/65 (BP Location: Right arm, Patient Position: Sitting) Pulse 65 Temp 36.1 C (97 F) (Temporal) Resp 19 Ht 6' 3" (1.905 m) Wt 213 lb (96.6 kg) SpO2 96% BMI 26.62 kg/m Pulse Ox: SpO2 Av % Min: 96 % Max: 96 % Supplemental O2: Physical Exam HENT: Head: Normocephalic and atraumatic. Mouth/Throat: Mouth: Mucous membranes are moist. Cardiovascular: Rate and Rhythm: Normal rate and regular rhythm. Pulmonary: Effort: Pulmonary effort is normal. Abdominal: Palpations: Abdomen is soft. Skin: General: Skin is warm and dry. Neurological: Mental Status: He is alert and oriented to person, place, and time. Comments: Paraplegia Medications: Scheduled PRN aspirin, 81 mg, Oral, Daily docusate sodium, 100 mg, Oral, BID enoxaparin, 40 mg, SubCUTAneous, Daily insulin glargine, 45 Units, SubCUTAneous, q AM insulin lispro, 0-12 Units, SubCUTAneous, TID WC And insulin lispro, 0-12 Units, SubCUTAneous, Nightly mirtazapine, 7.5 mg, Oral, Nightly oxyCODONE, 15 mg, Oral, 4x daily pregabalin, 200 mg, Oral, TID tamsulosin, 0.4 mg, Oral, Daily therapeutic multivitamin-minerals, 1 tablet, Oral, Daily PRN medications: acetaminophen OR acetaminophen, bisacodyl, calcium carbonate, cyclobenzaprine, dextrose, dextrose, glucagon (rDNA), glucose, HYDROmorphone, naloxone, ondansetron ODT OR ondansetron, polyethylene glycol (PEG) 3350 Continuous Assessment Data: (CAT1) Reviewed 2 notes from different specialty or health system (each=1). (CAT1) Reviewed 3 or more labs/studies previously ordered by me not previously counted (each=1, panels count as 1). (CAT1) Ordered 3 or more new labs and/or studies (each=1, panels count as 1). (LOW: 2x CAT1 or independent historian MOD: 3x CAT1 or 1x CAT3 EXTENSIVE: 3x CAT1 and 1x CAT3) Acute, acute on chronic, unstable/uncontrolled chronic problems/diagnoses: UTI possibly catheter associated urinary obstruction with bilateral calculi and bilateral hydronephrosis, s/p bilateral ureteral stent placement on 04/20/24 Diabetes mellitus with hyperglycemia Stable chronic problems affecting care, new non-acute diagnoses: Paraplegia Type 2 diabetes mellitus BPH Hypertension Hyperlipidemia Plan As a result of the above findings & factors, the following mgmt was pursued: - santana replaced - urine culture grew Proteus mirabilis - blood cultures NGTD -ID following, stop cefepime, monitor off antibiotics - am labs, replace lytes prn - PT/OT/CM/SW - delirium precautions: increase activity, limit nighttime disturbances, and avoid anticholinergic meds, benzos, etc - DVT prophylaxis: enoxaparin and encourage ambulation Complexity: Acute illness or injury posing a threat to life or body function (HIGH). Risk: Advance Directive: Full Code Anticipated Discharge - Date -2 to 3 days - Location - Skilled Facility - Pending the following -clinical course Total time spent (which include face to face and non face to face encounters) : 29 minutes Extended Emergency Contact Information Primary Emergency Contact: Ronald Reynolds Mobile Relation: Sibling Secondary Emergency Contact: SUMI REYNOLDS Mobile Relation: Daughter Alonsobam Dillonsalvadordon MD [place] Division of Hospitalist Medicine Inpatient Medical Services/[facility] Images from the original note were not included. [facility] - Infectious Diseases DOCUMENT MANAGEMENT TECHNICIAN Progress Note Subjective: Following for CoNS positive BC (one set from [facility]); asymptomatic ESBL proteus bacteriuria. Notes reviewed. Afebrile. No new complaints. Denies any flank pain or abdominal pain. Santana maintained with yellow-urine. Urine culture + ESBL proteus. Objective: Vitals: Patient Vitals for the past 24 hrs: BP Temp Temp src Pulse Resp SpO2 Weight 05/20/24 0739 121/70 36.3 C (97.3 F) Temporal 69 -- 95 % -- 05/19/242019 138/83 36.5 C (97.7 F) Temporal 74 18 95 % -- 05/19/24 1300 -- -- -- -- -- -- 96.6 kg (213 lb) Physical Exam Vitals and nursing note reviewed. Constitutional: General: He is not in acute distress. Appearance: Normal appearance. He is not toxic-appearing. Comments: Alert, interactive and conversant, NAD. HENT: Head: Normocephalic and atraumatic. Mouth/Throat: Mouth: Mucous membranes are moist. Pharynx: Oropharynx is clear. Eyes: Conjunctiva/sclera: Conjunctivae normal. Cardiovascular: Rate and Rhythm: Normal rate and regular rhythm. Heart sounds: No murmur heard. Pulmonary: Effort: Pulmonary effort is normal. No respiratory distress. Breath sounds: Normal breath sounds. No wheezing, rhonchi or rales. Abdominal: General: Bowel sounds are normal. There is no distension. Palpations: Abdomen is soft. Tenderness: There is no abdominal tenderness. There is no right CVA tenderness, left CVA tenderness or guarding. Genitourinary: Comments: + santana catheter with yellow urine Musculoskeletal: Cervical back: Neck supple. Right lower leg: No edema. Left lower leg: No edema. Comments: + healed posterior lumbar scar Skin: General: Skin is warm and dry. Findings: No erythema or rash. Comments: + small sacral decubitus without drainage or s/o inflammation Neurological: Mental Status: He is alert and oriented to person, place, and time. Motor: Weakness present. Comments: + paraplegia Psychiatric: Mood and Affect: Mood normal. Behavior: Behavior normal. Labs: Recent Labs 05/18/2461905/19/24 0407 05/20/24 0606 NA 136 134* 134* K 4.5 3.4* 4.0 CL 108* 110* 109* CO2 22 21* 21* BUN 13 11 10 CREATININE 0.64* 0.44* 0.50* GLUCOSE 143* 212* 207* CALCIUM 8.6 8.4 8.5 PROT -- 6.3 6.4 BILITOT -- 0.6 0.6 ALKPHOS -- 155* 153* AST -- 29 23 ALT -- 19 22 Recent Labs 05/17/24205705/18/2420 05/19/24 0407 05/20/24 0606 WBC 3.5* 7.7 5.4 5.5 HGB 19.6* 12.5* 12.0* 12.2* HCT 60.0* 38.7* 35.8* 37.0* PLT 105* 222 212 197 LYMPHOPCT 26.9 28.0 -- -- MONOPCT 6.8 9.6 -- -- BASOPCT 0.8 0.8 -- -- NEUTROABS 2.0 4.3 -- -- Micro: 05/18- urine cx >100k ESBL proteus mirabilis 05/17- blood cx- 2/2 NGTD 05/16- blood cx- 1/1 CoNS ([facility]) 05/05- tissue from bladder- C parapsilosis, K aerogenes, pseudomonas, skin gosia 04/16- blood cx- 2/2 negative 04/15- MRSA by PCR- MSSA 04/15- urine cx- 50-90k providencia stuartii 04/14- blood cx- 1/2 P mirablis, 11/06 P stuartii, M morganii Lines: PIV Radiography/Echo/Other: Reviewed- no new Antimicrobials,Start/End Dates: Pip/tazo: 05/17-05/18 Cefepime: 05/18-05/20 Impression: CoNS positive blood cultures one set ([facility])- contaminant Asymptomatic ESBL Proteus bacteriuria in setting of santana catheter s/p changed in ED Recent cystoscopy, B laser lithotripsy and ureteral stent exchange (05/06) Tissue cx + pseudomonas, klebsiella, and c parapsilosis hydronephrosis and obstruction due to bilateral ureteral calculus s/p cystoscopy, bilateral stent change and santana cath insertion on (04/14/24). Recent h/o proteus, providencia and morganella bacteremia d/t complicated UTI; treated H/o MRSA BSI c/b L2-L3 epidural abscess and R psoas abscess (01/2022); treated by [facility] ID Paraplegia w neurogenic bladder s/p chronic santana d/t #5 Plan: Pt received 4 days of cefepime and urine culture grew ESBL proteus likely representing colonization in setting of chronic santana catheter. He remains asymptomatic without systemic off of effective therapy. Recommend stopping cefepime and observing off. CoNS + blood cx from [facility] is a contaminant. Repeat blood cx negative Plan d/w Dr. Montano. Please page/call over the weekend if questions or concerns. Rosalinda Fox CNP [facility] - Infectious Diseases 10:11 AM 05/20/2024 Based on diagnoses and management, combination of acute and chronic problems, exacerbations and/or acuity, this visit should be considered to be of moderate complexity. Hospitalist Progress Note 05/20/2024 Subjective: Admit Date: 05/17/2024 PCP: Tab Dupont Room#: W6-267/W6-166 A Brief Hospital course: Anmol is a 63 y.o. male with past medical history below who presented to ED for evaluation of positive blood cultures. Patient is paraplegic due to spinal surgery that was done 2 years ago patient was evaluated and admitted on 04/14/2024 was noted to be in septic shock complicated UTI with bacteremia. Blood cultures were positive at that time for Proteus, providencia, morganella patient was treated by ID with PICC line that was placed on 04/20/2024 with ertapenem. Patient had repeat blood cultures that were drawn at facility on 05/13/2024, results are noted to be positive for gram-positive cocci in clusters. Dr. Moyer of infectious disease was consulted at that time and recommended patient come to the hospital for IV antibiotics. Admitted for further evaluation and management. ID consulted, seen the patient, appreciated Interval History: 05/20/2024-No overnight issues. Patient is seen and examined He is comfortably sleeping in his bed without in any acute distress, complaining of some bilateral leg tenderness Case and plan discussed with patient and bedside nurse. All questions answered. Past Medical History: Past Medical History: Diagnosis Date Abnormal posture Abscess, perineum Anemia BPH (benign prostatic hyperplasia) Chronic back pain Hematuria Hip sprain Hyperlipidemia Hypertension Major depressive disorder, single episode, unspecified MRSA (methicillin resistant staph aureus) culture positive spine 2021 Muscle wasting and atrophy, not elsewhere classified, left lower leg Muscle weakness (generalized) Neuropathy Obstructive and reflux uropathy, unspecified Osteoarthritis Other abnormalities of gait and mobility Other reduced mobility Paraplegia (HCC) Sciatica Spinal stenosis of lumbar region with neurogenic claudication Type 2 diabetes mellitus without complication (CMS/HCC) (HCC) Urinary calculus, unspecified UTI (urinary tract infection) Adult diet Regular 24HR INTAKE/OUTPUT: Intake/Output Summary (Last 24 hours) at 05/20/2024 0851 Last data filed at 05/20/2024 0729 Gross per 24 hour Intake 736 ml Output 2800 ml Net -2064 ml LABS: CBC: Recent Labs 05/18/24 0605/19/24 0407 05/20/24 0606 WBC 7.7 5.4 5.5 RBC 4.13* 3.96* 4.08* HGB 12.5* 12.0* 12.2* HCT 38.7* 35.8* 37.0* MCV 93.7 90.4 90.7 RDW 15.6* 14.9 15.1* PLT 222 212 197 BMP: Recent Labs 05/18/24 0605/19/24 0407 05/20/24 0606 NA 136 134* 134* K 4.5 3.4* 4.0 CL 108* 110* 109* CO2 22 21* 21* BUN 13 11 10 CREATININE 0.64* 0.44* 0.50* GLUCOSE 143* 212* 207* CALCIUM 8.6 8.4 8.5 ANIONGAP 5 3 4 LIVER PROFILE: Recent Labs 05/19/24 04005/20/24 0606 AST 29 23 ALT 19 22 BILITOT 0.6 0.6 ALKPHOS 155* 153* PROT 6.3 6.4 PT/INR: No results for input(s): "PROTIME", "INR" in the last 72 hours. CARDIAC ENZYMES: No results for input(s): "TROPONINI" in the last 72 hours. Procalcitonin: No results found for: "PROCAL" COVID-19 PCR: No results for input(s): "COVID19" in the last 72 hours. Objective: Vitals: BP 121/70 (BP Location: Right arm) Pulse 69 Temp 36.3 C (97.3 F) (Temporal) Resp 18 Ht 6' 3" (1.905 m) Wt 213 lb (96.6 kg) SpO2 95% BMI 26.62 kg/m Pulse Ox: SpO2 Av % Min: 95 % Max: 95 % Supplemental O2: Physical Exam HENT: Head: Normocephalic and atraumatic. Mouth/Throat: Mouth: Mucous membranes are moist. Cardiovascular: Rate and Rhythm: Normal rate and regular rhythm. Pulmonary: Effort: Pulmonary effort is normal. Abdominal: Palpations: Abdomen is soft. Skin: General: Skin is warm and dry. Neurological: Mental Status: He is alert and oriented to person, place, and time. Comments: Paraplegia Medications: Scheduled PRN aspirin, 81 mg, Oral, Daily cefepime, 2,000 mg, IntraVENous, q8h docusate sodium, 100 mg, Oral, BID enoxaparin, 40 mg, SubCUTAneous, Daily insulin glargine, 45 Units, SubCUTAneous, q AM insulin lispro, 0-12 Units, SubCUTAneous, TID WC And insulin lispro, 0-12 Units, SubCUTAneous, Nightly mirtazapine, 7.5 mg, Oral, Nightly oxyCODONE, 15 mg, Oral, 4x daily pregabalin, 200 mg, Oral, TID tamsulosin, 0.4 mg, Oral, Daily therapeutic multivitamin-minerals, 1 tablet, Oral, Daily PRN medications: acetaminophen OR acetaminophen, bisacodyl, calcium carbonate, cyclobenzaprine, dextrose, dextrose, glucagon (rDNA), glucose, HYDROmorphone, naloxone, ondansetron ODT OR ondansetron, polyethylene glycol (PEG) 3350 Continuous Assessment Data: (CAT1) Reviewed 2 notes from different specialty or health system (each=1). (CAT1) Reviewed 3 or more labs/studies previously ordered by me not previously counted (each=1, panels count as 1). (CAT1) Ordered 3 or more new labs and/or studies (each=1, panels count as 1). (LOW: 2x CAT1 or independent historian MOD: 3x CAT1 or 1x CAT3 EXTENSIVE: 3x CAT1 and 1x CAT3) Acute, acute on chronic, unstable/uncontrolled chronic problems/diagnoses: UTI possibly catheter associated urinary obstruction with bilateral calculi and bilateral hydronephrosis, s/p bilateral ureteral stent placement on 04/20/24 Diabetes mellitus with hyperglycemia Stable chronic problems affecting care, new non-acute diagnoses: Paraplegia Type 2 diabetes mellitus BPH Hypertension Hyperlipidemia Plan As a result of the above findings & factors, the following mgmt was pursued: - santana replaced - urine culture grew Proteus mirabilis - blood cultures NGTD -ID following, continue with cefepime - am labs, replace lytes prn - PT/OT/CM/SW - delirium precautions: increase activity, limit nighttime disturbances, and avoid anticholinergic meds, benzos, etc - DVT prophylaxis: enoxaparin and encourage ambulation Complexity: Acute illness or injury posing a threat to life or body function (HIGH). Risk: Advance Directive: Full Code Anticipated Discharge - Date -2 to 3 days - Location - Skilled Facility - Pending the following -clinical course Total time spent (which include face to face and non face to face encounters) : 29.5 minutes Extended Emergency Contact Information Primary Emergency Contact: Ronald Reynolds Mobile Relation: Sibling Secondary Emergency Contact: SUMI REYNOLDS Mobile Relation: Daughter Alonsobam Katia Mahajan MD Division of Hospitalist Medicine Inpatient Medical Services/[facility] Nutrition Assessment Type and Reason for Visit: Initial, Positive Nutrition Screen, Wound (+ decreased appetite) Nutrition Recommendations/Plan: Pt ordered Regular diet, would consider CHO Control diet to aide in BG control, otherwise will monitor. Pt has in the past declined Ensure/ONS, will monitor acutely. RD to monitor weight, labs, fluid, overall nutritional status & follow up weekly. 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 neurogenic bladder (01/2022) who required I&D x2 with KRIS (01/06/22) and T12-L5 posterior spinal instrumentation (01/14/22)--> followed by [facility] and treated with 6 weeks daptomycin with suppressive minocycline presented for this admission for evaluation of positive blood cultures; of note, pt was recently admitted to [facility] 04/14-04/20/2024 with proteus, providencia, and morganella bacteremia d/t complicated UTI, underwent cystoscopy, bilateral stent change and santana catheter insertion (04/14) for B hydronephrosis and obstruction due to B ureteral calculus, completed 2 weeks of IV Ertapenem through 04/30, on 05/06 he underwent cystoscopy, B laser lithotripsy and ureteral stent exchange, pt then had surveillance blood cultures collected on 05/16 growing GPC in clusters in one set, was advised to go to ED for evaluation and IV antibiotics; pt without any symptoms/complaints per chart, presented to ED afebrile and HDS, work-up showing WBC 3.5, LA 1.4, SCr 0.68, UA shows evidence of infection with >100 WBC and many bacteria in setting of santana catheter, santana was exchanged in ED, repeat blood cultures were drawn in ED; pt received pip/tazo, ID consulted to assist with antimicrobial management; pt ordered Regular PO diet. RD visited pt's room this morning (late entry), pt sleeping and asking to keep sleeping, did report tolerating breakfast this morning and denied needing anything at the time; bedscale reading 213#. Per chart review pt does not care for Ensure ONS. Estimated Daily Nutrient Needs: Energy Requirements Based On: Kcal/kg Weight Used for Energy Requirements: [place] Weight for Energy Calculation (kg): 89 kg Total Energy Requirements (kcals/day): 1099-8614 kcal/day (25-30 kcal/kg) Weight Used for Protein Requirements: [place] Weight in Kg Used for Protein Requirements: 89 kg Estimated Total Protein (g/day): ~107 gm protein/day (1.2 gm protein/kg) Estimated Daily Total Fluid (ml/day): per MD Nutrition Related Findings: +BS, last BM 05/18; +2 BLE edema; medications include remeron; labs: Na (134), BG (212), ALP (155), recent hemoglobin a1c (6.3%) Wound Type: (healed posterior lumbar scar without erythema, small sacral decubitus without drainage or s/o inflammation; Jack 14) Current Nutrition Therapies: Adult diet Regular Current Oral Intake Average Meal Intake: 76-100% (per chart) Average Supplements Intake: None Ordered Anthropometric Measures: Height: 190.5 cm (6' 3") Current Body Weight: 96.6 kg (213 lb) Weight Source: Bed Scale Admission Body Weight: 90.7 kg (200 lb) (stated) Usual Body Weight: (weights in EMR mostly appear stated, 180-200#, noted 04/19- 212#) Alverda Body Weight (lbs) (Calculated): 196 lbs Al[place]da Body Weight (Kg) (Calculated): 89 kg BMI (kg/m2) (Calculated): 26.6 Weight Adjustment For: No Adjustment BMI Categories: Overweight (BMI 25.0-29.9) Nutrition Diagnosis: Altered nutrition-related lab values related to endocrine dysfuntion as evidenced by lab values Nutrition Interventions: Nutrition Education/Counseling: Education not appropriate Coordination of Nutrition Care: Continue to monitor while inpatient Plan of Care discussed with: N/A Goals: Goals: PO intake 75% or greater, by next RD assessment, other (specify) Specify Other Goals: labs controlled Nutrition Monitoring and Evaluation: Behavioral-Environmental Outcomes: (N/A) Food/Nutrient Intake Outcomes: Food and Nutrient Intake Physical Signs/Symptoms Outcomes: Biochemical Data, Meal Time Behavior, Skin, Nutrition Focused Physical Findings, Weight, Fluid Status or Edema Discharge Planning: Too soon to determine Chelita Dominguez RD Contact: Secure chat or *[phone] Images from the original note were not included. [facility] - Infectious Diseases DOCUMENT MANAGEMENT TECHNICIAN Progress Note Subjective: Following for CoNS positive BC (one set from [facility]); proteus UTI. Notes reviewed. No acute overnight events. Denies flank pain or abdominal pain. Urine grew proteus. Repeat blood cx so far NGTD. Objective: Vitals: Patient Vitals for the past 24 hrs: BP Temp Temp src Pulse Resp SpO2 05/19/24 0727 129/84 36.6 C (97.8 F) Temporal 73 18 99 % 05/18/24 1939 158/86 36.5 C (97.7 F) Temporal 83 20 94 % 08/14/24 1824 128/81 36.2 C (97.2 F) Temporal 82 20 96 % 05/18/24 1730 121/80 -- -- 71 16 98 % 05/18/24 1412 125/77 -- -- 77 16 100 % 05/18/24 1143 129/84 -- -- 75 16 99 % Physical Exam Vitals and nursing note reviewed. Constitutional: General: He is not in acute distress. Appearance: Normal appearance. He is not toxic-appearing. Comments: Alert, interactive and conversant, NAD. HENT: Head: Normocephalic and atraumatic. Mouth/Throat: Mouth: Mucous membranes are moist. Pharynx: Oropharynx is clear. Eyes: Conjunctiva/sclera: Conjunctivae normal. Cardiovascular: Rate and Rhythm: Normal rate and regular rhythm. Heart sounds: No murmur heard. Pulmonary: Effort: Pulmonary effort is normal. No respiratory distress. Breath sounds: Normal breath sounds. No wheezing, rhonchi or rales. Abdominal: General: Bowel sounds are normal. There is no distension. Palpations: Abdomen is soft. Tenderness: There is no abdominal tenderness. There is no right CVA tenderness, left CVA tenderness or guarding. Genitourinary: Comments: + santana catheter with yellow urine and sediment Musculoskeletal: Cervical back: Neck supple. Right lower leg: No edema. Left lower leg: No edema. Comments: + healed posterior lumbar scar Skin: General: Skin is warm and dry. Findings: No erythema or rash. Comments: + small sacral decubitus without drainage or s/o inflammation Neurological: Mental Status: He is alert and oriented to person, place, and time. Motor: Weakness present. Comments: + paraplegia Psychiatric: Mood and Affect: Mood normal. Behavior: Behavior normal. Labs: Recent Labs 05/17/24205705/18/24 0620 05/19/24 0407 NA 136 136 134* K 4.4 4.5 3.4* CL 109* 108* 110* CO2 20* 22 21* BUN 12 13 11 CREATININE 0.68 0.64* 0.44* GLUCOSE 172* 143* 212* CALCIUM 8.7 8.6 8.4 PROT -- -- 6.3 BILITOT -- -- 0.6 ALKPHOS -- -- 155* AST -- -- 29 ALT -- -- 19 Recent Labs 05/17/24205705/18/24 0620 05/19/24 0407 WBC 3.5* 7.7 5.4 HGB 19.6* 12.5* 12.0* HCT 60.0* 38.7* 35.8* PLT 105* 222 212 LYMPHOPCT 26.9 28.0 -- MONOPCT 6.8 9.6 -- BASOPCT 0.8 0.8 -- NEUTROABS 2.0 4.3 -- Micro: 05/18- urine cx >100k proteus mirabilis 05/17- blood cx- 2/2 NGTD 05/16- blood cx- 1/ CoNS ([facility]) 05/05- tissue from bladder- C parapsilosis, K aerogenes, pseudomonas, skin gosia 04/16- blood cx- 2/2 negative 04/15- MRSA by PCR- MSSA 04/15- urine cx- 50-90k providencia stuartii 04/14- blood cx- 1/2 P mirablis, 11/06 P stuartii, M morganii Lines: PIV Radiography/Echo/Other: Reviewed- no new Antimicrobials,Start/End Dates: Pip/tazo: 05/17-05/18 Cefepime: 05/18-present Impression: CoNS positive blood cultures one set ([facility])- contaminant Proteus UTI in setting of santana catheter s/p changed in ED Recent cystoscopy, B laser lithotripsy and ureteral stent exchange (05/06) Tissue cx + pseudomonas, klebsiella, and c parapsilosis hydronephrosis and obstruction due to bilateral ureteral calculus s/p cystoscopy, bilateral stent change and santana cath insertion on (04/14/24). Recent h/o proteus, providencia and morganella bacteremia d/t complicated UTI; treated H/o MRSA BSI c/b L2-L3 epidural abscess and R psoas abscess (01/2022); treated by [facility] ID Paraplegia w neurogenic bladder s/p chronic santana d/t #5 Plan: Continue cefepime to also cover Psg in tissue cultures from 05/06 CoNS + blood cx from OSH is likely contaminant; repeat BC off of effective antimicrobial therapy so far without growth. Pt does not recall taking minocycline for suppression and has not followed up with [facility]-ID since his surgery in 2021. Will not start minocycline as subsequent blood cx did not grow MRSA. ID service will continue to follow; plan d/w Dr. Montano. Rosalinda Fox CNP [facility] - Infectious Diseases 3:08 PM 05/19/2024 Based on diagnoses and management, combination of acute and chronic problems, exacerbations and/or acuity, this visit should be considered to be of moderate complexity. Hospitalist Progress Note 05/19/2024 Subjective: Admit Date: 05/17/2024 PCP: AMBROSIO MONROY DO Room#: W6-625/W6-625 A Brief Hospital course: Anmol is a 63 y.o. male with past medical history below who presented to ED for evaluation of positive blood cultures. Patient is paraplegic due to spinal surgery that was done 2 years ago patient was evaluated and admitted on 04/14/2024 was noted to be in septic shock complicated UTI with bacteremia. Blood cultures were positive at that time for Proteus, providencia, morganella patient was treated by ID with PICC line that was placed on 04/20/2024 with ertapenem. Patient had repeat blood cultures that were drawn at facility on 05/13/2024, results are noted to be positive for gram-positive cocci in clusters. Dr. Moyer of infectious disease was consulted at that time and recommended patient come to the hospital for IV antibiotics. Admitted for further evaluation and management. ID consulted Interval History: 05/19/2024-No overnight issues. Patient is seen and examined Patient is sleeping in his bed without any acute distress Denies any new acute complaints Labs reviewed sodium 134, potassium 3.4, replaced, urine culture grew Proteus mirabilis Case and plan discussed with patient and bedside nurse. All questions answered. Past Medical History: Past Medical History: Diagnosis Date Abnormal posture Abscess, perineum Anemia BPH (benign prostatic hyperplasia) Chronic back pain Hematuria Hip sprain Hyperlipidemia Hypertension Major depressive disorder, single episode, unspecified MRSA (methicillin resistant staph aureus) culture positive spine 2021 Muscle wasting and atrophy, not elsewhere classified, left lower leg Muscle weakness (generalized) Neuropathy Obstructive and reflux uropathy, unspecified Osteoarthritis Other abnormalities of gait and mobility Other reduced mobility Paraplegia (HCC) Sciatica Spinal stenosis of lumbar region with neurogenic claudication Type 2 diabetes mellitus without complication (CMS/HCC) (HCC) Urinary calculus, unspecified UTI (urinary tract infection) Adult diet Regular 24HR INTAKE/OUTPUT: Intake/Output Summary (Last 24 hours) at 05/19/2024 1005 Last data filed at 05/19/2024 0727 Gross per 24 hour Intake 934.33 ml Output 1950 ml Net -1015.67 ml LABS: CBC: Recent Labs 05/17/24205705/18/2461905/19/24 0407 WBC 3.5* 7.7 5.4 RBC 6.51* 4.13* 3.96* HGB 19.6* 12.5* 12.0* HCT 60.0* 38.7* 35.8* MCV 92.2 93.7 90.4 RDW 16.8* 15.6* 14.9 PLT 105* 222 212 BMP: Recent Labs 05/17/24205705/18/2461905/19/24 040 NA 136 136 134* K 4.4 4.5 3.4* CL 109* 108* 110* CO2 20* 22 21* BUN 12 13 11 CREATININE 0.68 0.64* 0.44* GLUCOSE 172* 143* 212* CALCIUM 8.7 8.6 8.4 ANIONGAP 6 5 3 LIVER PROFILE: Recent Labs 05/19/24 0407 AST 29 ALT 19 BILITOT 0.6 ALKPHOS 155* PROT 6.3 PT/INR: No results for input(s): "PROTIME", "INR" in the last 72 hours. CARDIAC ENZYMES: No results for input(s): "TROPONINI" in the last 72 hours. Procalcitonin: No results found for: "PROCAL" COVID-19 PCR: No results for input(s): "COVID19" in the last 72 hours. Objective: Vitals: BP 129/84 (BP Location: Right arm, Patient Position: Sitting) Pulse 73 Temp 36.6 C (97.8 F) (Temporal) Resp 18 Ht 6' 3" (1.905 m) Wt 200 lb (90.7 kg) SpO2 99% BMI 25.00 kg/m Pulse Ox: SpO2 Av.7 % Min: 94 % Max: 100 % Supplemental O2: Physical Exam HENT: Head: Normocephalic and atraumatic. Mouth/Throat: Mouth: Mucous membranes are moist. Cardiovascular: Rate and Rhythm: Normal rate and regular rhythm. Pulmonary: Effort: Pulmonary effort is normal. Abdominal: Palpations: Abdomen is soft. Skin: General: Skin is warm and dry. Neurological: Mental Status: He is alert and oriented to person, place, and time. Comments: Paraplegia Medications: Scheduled PRN aspirin, 81 mg, Oral, Daily cefepime, 2,000 mg, IntraVENous, q8h docusate sodium, 100 mg, Oral, BID enoxaparin, 40 mg, SubCUTAneous, Daily insulin glargine, 45 Units, SubCUTAneous, q AM insulin lispro, 0-12 Units, SubCUTAneous, TID WC And insulin lispro, 0-12 Units, SubCUTAneous, Nightly mirtazapine, 7.5 mg, Oral, Nightly oxyCODONE ER, 15 mg, Oral, 2 times per day pregabalin, 200 mg, Oral, TID tamsulosin, 0.4 mg, Oral, Daily therapeutic multivitamin-minerals, 1 tablet, Oral, Daily PRN medications: acetaminophen OR acetaminophen, bisacodyl, calcium carbonate, cyclobenzaprine, dextrose, dextrose, glucagon (rDNA), glucose, HYDROmorphone, naloxone, ondansetron ODT OR ondansetron, polyethylene glycol (PEG) 3350 Continuous Assessment Data: (CAT1) Reviewed 2 notes from different specialty or health system (each=1). (CAT1) Reviewed 3 or more labs/studies previously ordered by me not previously counted (each=1, panels count as 1). (CAT1) Ordered 3 or more new labs and/or studies (each=1, panels count as 1). (LOW: 2x CAT1 or independent historian MOD: 3x CAT1 or 1x CAT3 EXTENSIVE: 3x CAT1 and 1x CAT3) Acute, acute on chronic, unstable/uncontrolled chronic problems/diagnoses: UTI possibly catheter associated urinary obstruction with bilateral calculi and bilateral hydronephrosis, s/p bilateral ureteral stent placement on 04/20/24 Stable chronic problems affecting care, new non-acute diagnoses: Paraplegia Type 2 diabetes mellitus BPH Hypertension Hyperlipidemia Plan As a result of the above findings & factors, the following mgmt was pursued: - santana replaced - urine culture grew Proteus mirabilis - blood cultures NGTD for 24 hours -ID following, continue with cefepime - am labs, replace lytes prn - PT/OT/CM/SW - delirium precautions: increase activity, limit nighttime disturbances, and avoid anticholinergic meds, benzos, etc - DVT prophylaxis: enoxaparin and encourage ambulation Complexity: Acute illness or injury posing a threat to life or body function (HIGH). Risk: Advance Directive: Full Code Anticipated Discharge - Date -2 to 3 days - Location - Skilled Facility - Pending the following -CBC, CMP Total time spent (which include face to face and non face to face encounters) : 39.5 minutes Extended Emergency Contact Information Primary Emergency Contact: Ronald Reynolds Mobile Relation: Sibling Secondary Emergency Contact: SUMI REYNOLDS Mobile Relation: Daughter Alonsobam Katia Mahajan MD Division of Hospitalist Medicine [place]patient Medical Services[place] Hospitalist Progress Note 05/18/2024 Subjective: Admit Date: 05/17/2024 PCP: AMBROSIO MONROY DO Room#: 35/35 Brief Hospital course: Anmol is a 63 y.o. male with past medical history below who presented to ED for evaluation of positive blood cultures. Patient is paraplegic due to spinal surgery that was done 2 years ago patient was evaluated and admitted on 04/14/2024 was noted to be in septic shock complicated UTI with bacteremia. Blood cultures were positive at that time for Proteus, providencia, morganella patient was treated by ID with PICC line that was placed on 04/20/2024 with ertapenem. Patient had repeat blood cultures that were drawn at facility on 05/13/2024, results are noted to be positive for gram-positive cocci in clusters. Dr. Moyer of infectious disease was consulted at that time and recommended patient come to the hospital for IV antibiotics. Admitted for further evaluation and management. Interval History: 05/18/2024-No overnight issues. Patient is seen and examined Resting in his bed comfortably without in any acute distress, denies any new acute complaints Case and plan discussed with patient and bedside nurse. All questions answered. Past Medical History: Past Medical History: Diagnosis Date Abnormal posture Abscess, perineum Anemia BPH (benign prostatic hyperplasia) Chronic back pain Hematuria Hip sprain Hyperlipidemia Hypertension Major depressive disorder, single episode, unspecified MRSA (methicillin resistant staph aureus) culture positive spine 2021 Muscle wasting and atrophy, not elsewhere classified, left lower leg Muscle weakness (generalized) Neuropathy Obstructive and reflux uropathy, unspecified Osteoarthritis Other abnormalities of gait and mobility Other reduced mobility Paraplegia (HCC) Sciatica Spinal stenosis of lumbar region with neurogenic claudication Type 2 diabetes mellitus without complication (CMS/HCC) (HCC) Urinary calculus, unspecified UTI (urinary tract infection) Adult diet Regular 24HR INTAKE/OUTPUT: No intake or output data in the 24 hours ending 05/18/24 0817 LABS: CBC: Recent Labs 05/17/24205705/18/24 0620 WBC 3.5* 7.7 RBC 6.51* 4.13* HGB 19.6* 12.5* HCT 60.0* 38.7* MCV 92.2 93.7 RDW 16.8* 15.6* PLT 105* 222 BMP: Recent Labs 05/17/24205705/18/24 0620 NA 136 136 K 4.4 4.5 CL 109* 108* CO2 20* 22 BUN 12 13 CREATININE 0.68 0.64* GLUCOSE 172* 143* CALCIUM 8.7 8.6 ANIONGAP 6 5 LIVER PROFILE:No results for input(s): "AST", "ALT", "BILITOT", "ALKPHOS", "PROT" in the last 72 hours. No lab exists for component: LABALBU PT/INR: No results for input(s): "PROTIME", "INR" in the last 72 hours. CARDIAC ENZYMES: No results for input(s): "TROPONINI" in the last 72 hours. Procalcitonin: No results found for: "PROCAL" COVID-19 PCR: No results for input(s): "COVID19" in the last 72 hours. Objective: Vitals: BP 94/65 (Patient Position: Lying) Pulse 69 Temp 36.4 C (97.5 F) (Oral) Resp 18 Ht 6' 3" (1.905 m) Wt 200 lb (90.7 kg) SpO2 98% BMI 25.00 kg/m Pulse Ox: SpO2 Av.7 % Min: 96 % Max: 98 % Supplemental O2: Physical Exam HENT: Head: Normocephalic and atraumatic. Mouth/Throat: Mouth: Mucous membranes are moist. Cardiovascular: Rate and Rhythm: Normal rate and regular rhythm. Pulmonary: Effort: Pulmonary effort is normal. Abdominal: Palpations: Abdomen is soft. Skin: General: Skin is warm and dry. Neurological: Mental Status: He is alert and oriented to person, place, and time. Comments: Paraplegia Medications: Scheduled PRN aspirin, 81 mg, Oral, Daily docusate sodium, 100 mg, Oral, BID enoxaparin, 40 mg, SubCUTAneous, Daily insulin glargine, 45 Units, SubCUTAneous, q AM insulin lispro, 0-12 Units, SubCUTAneous, TID WC And insulin lispro, 0-12 Units, SubCUTAneous, Nightly mirtazapine, 7.5 mg, Oral, Nightly oxyCODONE ER, 15 mg, Oral, 2 times per day piperacillin-tazobactam, 3,375 mg, IntraVENous, q8h pregabalin, 200 mg, Oral, TID tamsulosin, 0.4 mg, Oral, Daily therapeutic multivitamin-minerals, 1 tablet, Oral, Daily PRN medications: acetaminophen OR acetaminophen, bisacodyl, calcium carbonate, cyclobenzaprine, dextrose, dextrose, glucagon (rDNA), glucose, HYDROmorphone, naloxone, ondansetron ODT OR ondansetron, polyethylene glycol (PEG) 3350 Continuous sodium chloride, 100 mL/hr, Last Rate: 100 mL/hr (05/18/24 0621) Assessment Data: (CAT1) Reviewed 2 notes from different specialty or health system (each=1). (CAT1) Reviewed 3 or more labs/studies ordered by another provider not previously counted (each=1, panels count as 1). (CAT1) Ordered 3 or more new labs and/or studies (each=1, panels count as 1). (LOW: 2x CAT1 or independent historian MOD: 3x CAT1 or 1x CAT3 EXTENSIVE: 3x CAT1 and 1x CAT3) Acute, acute on chronic, unstable/uncontrolled chronic problems/diagnoses: UTI possibly catheter associated urinary obstruction with bilateral calculi and bilateral hydronephrosis, s/p bilateral ureteral stent placement on 04/20/24 Stable chronic problems affecting care, new non-acute diagnoses: Paraplegia Type 2 diabetes mellitus BPH Hypertension Hyperlipidemia Plan As a result of the above findings & factors, the following mgmt was pursued: - santana replaced - urine culture - blood cultures -ID seen the patient, stop Zosyn, started on cefepime, appreciated - am labs, replace lytes prn - PT/OT/CM/SW - delirium precautions: increase activity, limit nighttime disturbances, and avoid anticholinergic meds, benzos, etc - DVT prophylaxis: enoxaparin and encourage ambulation Complexity: Acute illness or injury posing a threat to life or body function (HIGH). Risk: Advance Directive: Full Code Anticipated Discharge - Date -2 to 3 days - Location - Skilled Facility - Pending the following -CBC, CMP Total time spent (which include face to face and non face to face encounters) : 50.5 minutes Extended Emergency Contact Information Primary Emergency Contact: Ronald Reynolds Mobile Relation: Sibling Secondary Emergency Contact: SUMI REYNOLDS Mobile Relation: Daughter Alonsobam Christiandon MD [place] Division of Hospitalist Medicine Inpatient Medical Services[place] documented in this encounter [facility] 05-22-2024 Note Formatting of this n ote might be different from the original. CARE COORDINATION DAILY NOTE/UPDATE Discharge Plan: [facility] This TCC was tasked to follow this patient through the weekend assisting with discharge planning. Chart was reviewed. Met with patient at bedside to confirm if he would like to return to [facility]. Patient agreeable to return. Messaged attending and infectious disease to see if patient is able to discharge today. Discharge order placed. Scheduled discharge transportation in [employer], pickling grader time confirmed for 05/22 at 1600. Bedside nurse notified of transport and will update patient and family of plan Facility notified of transportation time and discharge documents including After Visit Summary, MAR, LABS, and Vitals were uploaded into careport for review. [facility] 05-22-2024 Note Formatting of this n ote might be different from the original. CARE COORDINATION DAILY NOTE/UPDATE Discharge Plan: [facility] This TCC was tasked to follow this patient through the weekend assisting with discharge planning. Chart was reviewed. Met with patient at bedside to confirm if he would like to return to [facility]. Patient agreeable to return. Messaged attending and infectious disease to see if patient is able to discharge today. Discharge order placed. Scheduled discharge transportation in [employer], pickling grader time confirmed for 05/22 at 1600. Bedside nurse notified of transport and will update patient and family of [facility] Facility notified of transportation time and discharge documents including After Visit Summary, MAR, LABS, and Vitals were uploaded into careport for review. [facility] 05-22-2024 Plan of care note Problem: Knowledge Deficit Goal: Patient/family/caregiver demonstrates understanding of disease process, treatment plan, medications, and discharge instructions Outcome: Adequate for Discharge Problem: Potential for Compromised Skin Integrity Goal: Skin Integrity is Maintained or Improved Outcome: Adequate for Discharge Goal: Nutritional status is improving Outcome: Adequate for Discharge Problem: Urinary Incontinence Goal: Perineal skin integrity is maintained or improved Outcome: Adequate for Discharge Problem: Pain Goal: My pain/discomfort is manageable Outcome: Adequate for Discharge Problem: Safety Goal: Patient will be injury free during hospitalization Outcome: Adequate for Discharge Goal: I will remain free of falls Outcome: Adequate for Discharge Problem: Daily Care Goal: Daily care needs are met Outcome: Adequate for Discharge Problem: Psychosocial Needs Goal: Demonstrates ability to cope with hospitalization/illness Outcome: Adequate for Discharge Goal: Collaborate with me, my family, and caregiver to identify my specific goals Outcome: Adequate for Discharge Problem: Discharge Barriers Goal: My discharge needs are met Outcome: Adequate for Discharge Problem: Problem Interventions Goal: Assess Nutritional Intake Outcome: Adequate for Discharge [facility] 05-22-2024 Note Problem: Safety Goal: Patient will be injury free during hospitalization Outcome: Progressing Problem: Safety Goal: I will remain free of falls Outcome: Progressing [facility] 05-22-2024 Plan of care note Problem: Safety Goal: Patient will be injury free during hospitalization Outcome: Progressing Problem: Safety Goal: I will remain free of falls Outcome: Progressing [facility] 05-21-2024 Note PHYSICAL THERAPY [facility] Initial Evaluation Name/MRN: Anmol Reynolds ([id number]) Evaluation Date: 05/21/2024 Date of : 1960 Admission Date: 05/17/2024 8:25 PM Age: 63 y.o. [facility]Bed: [facility] Discharge Recommendation: ECF without PT (Patient states he may be interested to going to a different ECF in [place]) Equipment Needed: No Assessment IMPRESSION: Patient is a 63 yo with h/o paraplegia following spinal surgery ~2 yrs ago who was admitted due to positive blood cultures. Patient appears at functional baseline at this time. He reports ECF staff use everett lift for transfers into his power wheelchair and he is independent with power wheelchair mobility. States therapy has tried working on slide board transfers in the past "but it was too hard." Patient currently able to roll self and scoot self up in bed using bed rails with modif indep. Patient required max A for supine <> sit <> supine with min/mod A needed for seated balance at EOB. States he doesn't sit EOB at baseline. No further PT needs at this time, will discharge PT services. Recommend return to ECF without PT. Admitting Diagnosis: positive blood cultures Prognosis: fair Performance Deficits /Impairments: Increased Pain and Decreased Balance Decision Making: Medium Complexity Subjective RN cleared patient for PT eval. Patient awake in bed, hyperverbal and tangential throughout session requiring cues to maintain focus on tasks at hand, agreeable to therapy eval. Pain: [place]-Grant Pain Ratin = Hurts a little bit Pain Location: BLE Past Medical History: Past Medical History: Diagnosis Date Abnormal posture Abscess, perineum Anemia BPH (benign prostatic hyperplasia) Chronic back pain Hematuria Hip sprain Hyperlipidemia Hypertension Major depressive disorder, single episode, unspecified MRSA (methicillin resistant staph aureus) culture positive spine 2021 Muscle wasting and atrophy, not elsewhere classified, left lower leg Muscle weakness (generalized) Neuropathy Obstructive and reflux uropathy, unspecified Osteoarthritis Other abnormalities of gait and mobility Other reduced mobility Paraplegia ([facility]) Sciatica Spinal stenosis of lumbar region with neurogenic claudication Type 2 diabetes mellitus without complication (CMS/[facility]) ([facility]) Urinary calculus, unspecified UTI (urinary tract infection) Past Surgical History: Past Surgical History: Procedure Laterality Date ANKLE SURGERY Right He has a titanium plate to the right ankle KNEE SURGERY Left ACL KNEE SURGERY Left removal of screw LAMINECTOMY Left 10/24/2020 LEFT BILATERAL L2-3-4-5 DECOMPRESSION performed by Opal Vigil MD at [facility] OR ORTHOPEDIC SURGERY Right removal of hardware ankle US PLACE URETAL STENT PERC PRE-EXIST TRACT S&I (HISTORICAL) Bilateral 04/14/2024 Dr. Patel/Bashir Admission Diagnosis: Patient Active Problem List Diagnosis Date Noted Hypertension 01/06/2017 Hyperglycemia 01/06/2017 Hip sprain 01/06/2017 Anxiety 01/06/2017 Positive blood cultures 05/17/2024 Calculus of ureter 05/06/2024 Bladder calculus 05/05/2024 Pressure injury of coccygeal region, stage 3 ([facility]) 04/20/2024 Septic shock ([facility]) 04/14/2024 Lumbar stenosis with neurogenic claudication 10/24/2020 Spinal stenosis of lumbar region with neurogenic claudication 10/24/2020 Nicotine use disorder 10/15/2020 Unspecified osteoarthritis, unspecified site 10/15/2020 Pilonidal cyst without abscess 10/15/2020 Diabetes mellitus without complication ([facility]) ([facility]) 10/15/2020 Abnormal finding on EKG 10/15/2020 Other intervertebral disc displacement, lumbar region 10/15/2020 Lumbar radiculopathy 10/04/2020 Herniated nucleus pulposus, L5-S1, left 07/07/2017 Medical Precautions: No active isolations Proper PPE donned/doffed in accordance with facility standards. Fall Risk: [place]quin Fall Risk Score: 35 (Medium Risk) Precautions/Restrictions: Lines/Drains/Airways: santana Fall Precautions Skin care precautions, CAUTI precautions, +alarms Family/Caregiver Present: none Overall Cognitive Status: Grossly WFL, hyperverbal and tangential throughout session Overall Orientation Status: Oriented x4 Hearing: normal Social/Functional History Patient admitted from SNF. ([facility]) Assistive Equipment: wheelchair - electric, hospital bed, and everett lift Prior Level of Function ADL Assistance: Needs Assist Ambulation Assistance: Non-Ambulatory Independent with power wheelchair mobility Transfer Assistance: everett lift Objective Lower Extremity Assessment AROM: absent PROM: WFL Strength: 0/5 BLE Sensation: Impaired: reports numbness in BLE, sensation absent to light touch/pressure Balance: Sat EOB with BUE support and min/mod A due to occasional retro LOB. Bed Mobility: Supine to sit: Max Assist Sit to supine: Max Assist Rolling to right: Modified Independent Rolling to left: (more content not included)... [facility] 05-21-2024 Note Hospitalist Progress Note 05/21/2024 Subjective: Admit Date: 05/17/2024 PCP: Tab Dupont Room#: W6-575/[id number] A Brief Hospital course: Anmol is a 63 y.o. male with past medical history below who presented to ED for evaluation of positive blood cultures. Patient is paraplegic due to spinal surgery that was done 2 years ago patient was evaluated and admitted on 04/14/2024 was noted to be in septic shock complicated UTI with bacteremia. Blood cultures were positive at that time for Proteus, providencia, morganella patient was treated by ID with PICC line that was placed on 04/20/2024 with ertapenem. Patient had repeat blood cultures that were drawn at facility on 05/13/2024, results are noted to be positive for gram-positive cocci in clusters. Dr. Moyer of infectious disease was consulted at that time and recommended patient come to the hospital for IV antibiotics. Admitted for further evaluation and management. ID consulted following, cefepime stopped, monitor off antibiotics PT recommends ECF Interval History: 05/21/2024-No overnight issues. Patient is seen and examined He is resting in his bed without in any acute distress, about to get physical therapy Case and plan discussed with patient and bedside nurse. All questions answered. Past Medical History: Past Medical History: Diagnosis Date Abnormal posture Abscess, perineum Anemia BPH (benign prostatic hyperplasia) Chronic back pain Hematuria Hip sprain Hyperlipidemia Hypertension Major depressive disorder, single episode, unspecified MRSA (methicillin resistant staph aureus) culture positive spine 2021 Muscle wasting and atrophy, not elsewhere classified, left lower leg Muscle weakness (generalized) Neuropathy Obstructive and reflux uropathy, unspecified Osteoarthritis Other abnormalities of gait and mobility Other reduced mobility Paraplegia (HCC) Sciatica Spinal stenosis of lumbar region with neurogenic claudication Type 2 diabetes mellitus without complication (CMS/HCC) (HCC) Urinary calculus, unspecified UTI (urinary tract infection) Adult diet Regular 24HR INTAKE/OUTPUT: Intake/Output Summary (Last 24 hours) at 05/21/2024 0909 Last data filed at 05/20/2024 1800 Gross per 24 hour Intake 240 ml Output -- Net 240 ml LABS: CBC: Recent Labs 05/19/2440605/20/24 0605/21/24 0336 WBC 5.4 5.5 5.8 RBC 3.96* 4.08* 4.04* HGB 12.0* 12.2* 12.4* HCT 35.8* 37.0* 37.5* MCV 90.4 90.7 92.8 RDW 14.9 15.1* 15.0 PLT 212 197 192 BMP: Recent Labs 05/19/2440605/20/24 0605/21/24 0336 NA 134* 134* 136 K 3.4* 4.0 3.9 CL 110* 109* 109* CO2 21* 21* 18* BUN 11 10 11 CREATININE 0.44* 0.50* 0.46* GLUCOSE 212* 207* 157* CALCIUM 8.4 8.5 8.5 ANIONGAP 3 4 8 LIVER PROFILE: Recent Labs 05/19/2440605/20/24 0606 05/21/24 0336 AST 29 23 24 ALT 19 22 21 BILITOT 0.6 0.6 0.5 ALKPHOS 155* 153* 142* PROT 6.3 6.4 6.2* PT/INR: No results for input(s): "PROTIME", "INR" in the last 72 hours. CARDIAC ENZYMES: No results for input(s): "TROPONINI" in the last 72 hours. Procalcitonin: No results found for: "PROCAL" COVID-19 PCR: No results for input(s): "COVID19" in the last 72 hours. Objective: Vitals: BP 110/65 (BP Location: Right arm, Patient Position: Sitting) Pulse 65 Temp 36.1 ?C (97 ?F) (Temporal) Resp 19 Ht 6' 3" (1.905 m) Wt 213 lb (96.6 kg) SpO2 96% BMI 26.62 kg/m? Pulse Ox: SpO2 Av % Min: 96 % Max: 96 % Supplemental O2: Physical Exam HENT: Head: Normocephalic and atraumatic. Mouth/Throat: Mouth: Mucous membranes are moist. Cardiovascular: Rate and Rhythm: Normal rate and regular rhythm. Pulmonary: Effort: Pulmonary effort is normal. Abdominal: Palpations: Abdomen is soft. Skin: General: Skin is warm and dry. Neurological: Mental Status: He is alert and oriented to person, place, and time. Comments: Paraplegia Medications: Scheduled PRN aspirin, 81 mg, Oral, Daily docusate sodium, 100 mg, Oral, BID enoxaparin, 40 mg, SubCUTAneous, Daily insulin glargine, 45 Units, SubCUTAneous, q AM insulin lispro, 0-12 Units, SubCUTAneous, TID WC And insulin lispro, 0-12 Units, SubCUTAneous, Nightly mirtazapine, 7.5 mg, Oral, Nightly oxyCODONE, 15 mg, Oral, 4x daily pregabalin, 200 mg, Oral, TID tamsulosin, 0.4 mg, Oral, Daily therapeutic multivitamin-minerals, 1 tablet, Oral, Daily PRN medications: acetaminophen OR acetaminophen, bisacodyl, calcium carbonate, cyclobenzaprine, dextrose, dextrose, glucagon (rDNA), glucose, HYDROmorphone, naloxone, ondansetron ODT OR ondansetron, polyethylene glycol (PEG) 3350 Continuous Assessment Data: (CAT1) Reviewed 2 notes from different specialty or health system (each=1). (CAT1) Reviewed 3 or more labs/studies previously ordered by me not previously counted (each=1, panels count as 1). (CAT1) Ordered 3 or more new labs and/or studies (ea (more content not included)... [facility] 05-21-2024 Plan of care note Problem: Knowledge Deficit Goal: Patient/family/caregiver demonstrates understanding of disease process, treatment plan, medications, and discharge instructions Outcome: Progressing Problem: Potential for Compromised Skin Integrity Goal: Skin Integrity is Maintained or Improved Outcome: Progressing Goal: Nutritional status is improving Outcome: Progressing Problem: Urinary Incontinence Goal: Perineal skin integrity is maintained or improved Outcome: Progressing Problem: Pain Goal: My pain/discomfort is manageable Outcome: Progressing Problem: Safety Goal: Patient will be injury free during hospitalization Outcome: Progressing Goal: I will remain free of falls Outcome: Progressing Problem: Daily Care Goal: Daily care needs are met Outcome: Progressing Problem: Psychosocial Needs Goal: Demonstrates ability to cope with hospitalization/illness Outcome: Progressing Goal: Collaborate with me, my family, and caregiver to identify my specific goals Outcome: Progressing Problem: Discharge Barriers Goal: My discharge needs are met Outcome: Progressing Problem: Problem Interventions Goal: Assess Nutritional Intake Outcome: Progressing [facility] 05-20-2024 Plan of care note Problem: Knowledge Deficit Goal: Patient/family/caregiver demonstrates understanding of disease process, treatment plan, medications, and discharge instructions Outcome: Progressing Problem: Potential for Compromised Skin Integrity Goal: Skin Integrity is Maintained or Improved Outcome: Progressing Goal: Nutritional status is improving Outcome: Progressing [facility] 05-20-2024 Note Formatting of this n ote might be different from the original. Chart reviewed. ID following for CoNS postive BC and proteus UTI. Repeat BC pending. +iv cefepime, final course not yet determined. Current discharge plan is return to [place] [facility] [place]. Will return skilled only if needed, otherwise he can return under his medicaid benefit per [facility] message. TCC to continue to follow. [facility] 05-20-2024 Note Formatting of this n ote might be different from the original. Chart reviewed. ID following for CoNS postive BC and proteus UTI. Repeat BC pending. +iv cefepime, final course not yet determined. Current discharge plan is return to [facility]. Will return skilled only if needed, otherwise he can return under his medicaid benefit per [facility] message. TCC to continue to follow. [facility] 05-20-2024 Note [facility] - Infectious Diseases DOCUMENT MANAGEMENT TECHNICIAN Progress Note Subjective: Following for CoNS positive BC (one set from [facility]); asymptomatic ESBL proteus bacteriuria. Notes reviewed. Afebrile. No new complaints. Denies any flank pain or abdominal pain. Santana maintained with yellow-urine. Urine culture + ESBL proteus. Objective: Vitals: Patient Vitals for the past 24 hrs: BP Temp Temp src Pulse Resp SpO2 Weight 05/20/24 0739 121/70 36.3 ?C (97.3 ?F) Temporal 69 -- 95 % -- 05/19/24 2020 138/83 36.5 ?C (97.7 ?F) Temporal 74 18 95 % -- 05/19/24 1300 -- -- -- -- -- -- 96.6 kg (213 lb) Physical Exam Vitals and nursing note reviewed. Constitutional: General: He is not in acute distress. Appearance: Normal appearance. He is not toxic-appearing. Comments: Alert, interactive and conversant, NAD. HENT: Head: Normocephalic and atraumatic. Mouth/Throat: Mouth: Mucous membranes are moist. Pharynx: Oropharynx is clear. Eyes: Conjunctiva/sclera: Conjunctivae normal. Cardiovascular: Rate and Rhythm: Normal rate and regular rhythm. Heart sounds: No murmur heard. Pulmonary: Effort: Pulmonary effort is normal. No respiratory distress. Breath sounds: Normal breath sounds. No wheezing, rhonchi or rales. Abdominal: General: Bowel sounds are normal. There is no distension. Palpations: Abdomen is soft. Tenderness: There is no abdominal tenderness. There is no right CVA tenderness, left CVA tenderness or guarding. Genitourinary: Comments: + santana catheter with yellow urine Musculoskeletal: Cervical back: Neck supple. Right lower leg: No edema. Left lower leg: No edema. Comments: + healed posterior lumbar scar Skin: General: Skin is warm and dry. Findings: No erythema or rash. Comments: + small sacral decubitus without drainage or s/o inflammation Neurological: Mental Status: He is alert and oriented to person, place, and time. Motor: Weakness present. Comments: + paraplegia Psychiatric: Mood and Affect: Mood normal. Behavior: Behavior normal. Labs: Recent Labs 05/18/2461905/19/2440605/20/24 06 NA 136 134* 134* K 4.5 3.4* 4.0 CL 108* 110* 109* CO2 22 21* 21* BUN 13 11 10 CREATININE 0.64* 0.44* 0.50* GLUCOSE 143* 212* 207* CALCIUM 8.6 8.4 8.5 PROT -- 6.3 6.4 BILITOT -- 0.6 0.6 ALKPHOS -- 155* 153* AST -- 29 23 ALT -- 19 22 Recent Labs 05/17/24205705/18/2461905/19/2440605/20/24 0606 WBC 3.5* 7.7 5.4 5.5 HGB 19.6* 12.5* 12.0* 12.2* HCT 60.0* 38.7* 35.8* 37.0* PLT 105* 222 212 197 LYMPHOPCT 26.9 28.0 -- -- MONOPCT 6.8 9.6 -- -- BASOPCT 0.8 0.8 -- -- NEUTROABS 2.0 4.3 -- -- Micro: 05/18- urine cx >100k ESBL proteus mirabilis 05/17- blood cx- 2/2 NGTD 05/16- blood cx- / CoNS ([facility]) 05/05- tissue from bladder- C parapsilosis, K aerogenes, pseudomonas, skin gosia 04/16- blood cx- 2/2 negative 04/15- MRSA by PCR- MSSA 04/15- urine cx- 50-90k providencia stuartii 04/14- blood cx- 1/2 P mirablis, 2/ P stuartii, M morganii Lines: PIV Radiography/Echo/Other: Reviewed- no new Antimicrobials,Start/End Dates: Pip/tazo: 05/17-05/18 Cefepime: 05/18-05/20 Impression: CoNS positive blood cultures one set ([facility])- contaminant Asymptomatic ESBL Proteus bacteriuria in setting of santana catheter s/p changed in ED Recent cystoscopy, B laser lithotripsy and ureteral stent exchange (05/06) Tissue cx + pseudomonas, klebsiella, and c parapsilosis hydronephrosis and obstruction due to bilateral ureteral calculus s/p cystoscopy, bilateral stent change and santana cath insertion on (04/14/24). Recent h/o proteus, providencia and morganella bacteremia d/t complicated UTI; treated H/o MRSA BSI c/b L2-L3 epidural abscess and R psoas abscess (01/2022); [facility] Paraplegia w neurogenic bladder s/p chronic santana d/t #5 Plan: Pt received 4 days of cefepime and urine culture grew ESBL proteus likely representing colonization in setting of chronic santana catheter. He remains asymptomatic without systemic off of effective therapy. Recommend stopping cefepime and observing off. CoNS + blood cx from [facility] is a contaminant. Repeat blood cx negative Plan d/w Dr. Montano. Please page/call over the weekend if questions or concerns. Rosalinda Fox CNP [facility] - Infectious Diseases 10:11 AM 05/20/2024 Based on diagnoses and management, combination of acute and chronic problems, exacerbations and/or acuity, this visit should be considered to be of moderate complexity. [facility] 05-20-2024 Note Hospitalist Progress Note 05/20/2024 Subjective: Admit Date: 05/17/2024 PCP: Tab Dupont Room#: W3-405/[id number] A Brief Hospital course: Anmol is a 63 y.o. male with past medical history below who presented to ED for evaluation of positive blood cultures. Patient is paraplegic due to spinal surgery that was done 2 years ago patient was evaluated and admitted on 04/14/2024 was noted to be in septic shock complicated UTI with bacteremia. Blood cultures were positive at that time for Proteus, providencia, morganella patient was treated by ID with PICC line that was placed on 04/20/2024 with ertapenem. Patient had repeat blood cultures that were drawn at facility on 05/13/2024, results are noted to be positive for gram-positive cocci in clusters. Dr. Moyer of infectious disease was consulted at that time and recommended patient come to the hospital for IV antibiotics. Admitted for further evaluation and management. ID consulted, seen the patient, appreciated Interval History: 05/20/2024-No overnight issues. Patient is seen and examined He is comfortably sleeping in his bed without in any acute distress, complaining of some bilateral leg tenderness Case and plan discussed with patient and bedside nurse. All questions answered. Past Medical History: Past Medical History: Diagnosis Date Abnormal posture Abscess, perineum Anemia BPH (benign prostatic hyperplasia) Chronic back pain Hematuria Hip sprain Hyperlipidemia Hypertension Major depressive disorder, single episode, unspecified MRSA (methicillin resistant staph aureus) culture positive spine 2021 Muscle wasting and atrophy, not elsewhere classified, left lower leg Muscle weakness (generalized) Neuropathy Obstructive and reflux uropathy, unspecified Osteoarthritis Other abnormalities of gait and mobility Other reduced mobility Paraplegia (HCC) Sciatica Spinal stenosis of lumbar region with neurogenic claudication Type 2 diabetes mellitus without complication (CMS/HCC) (HCC) Urinary calculus, unspecified UTI (urinary tract infection) Adult diet Regular 24HR INTAKE/OUTPUT: Intake/Output Summary (Last 24 hours) at 05/20/2024 0851 Last data filed at 05/20/2024 0729 Gross per 24 hour Intake 736 ml Output 2800 ml Net -2064 ml LABS: CBC: Recent Labs 05/18/24 0605/19/24 0407 05/20/24 0606 WBC 7.7 5.4 5.5 RBC 4.13* 3.96* 4.08* HGB 12.5* 12.0* 12.2* HCT 38.7* 35.8* 37.0* MCV 93.7 90.4 90.7 RDW 15.6* 14.9 15.1* PLT 222 212 197 BMP: Recent Labs 05/18/24 0605/19/24 0407 05/20/24 0606 NA 136 134* 134* K 4.5 3.4* 4.0 CL 108* 110* 109* CO2 22 21* 21* BUN 13 11 10 CREATININE 0.64* 0.44* 0.50* GLUCOSE 143* 212* 207* CALCIUM 8.6 8.4 8.5 ANIONGAP 5 3 4 LIVER PROFILE: Recent Labs 05/19/24 0407 05/20/24 0606 AST 29 23 ALT 19 22 BILITOT 0.6 0.6 ALKPHOS 155* 153* PROT 6.3 6.4 PT/INR: No results for input(s): "PROTIME", "INR" in the last 72 hours. CARDIAC ENZYMES: No results for input(s): "TROPONINI" in the last 72 hours. Procalcitonin: No results found for: "PROCAL" COVID-19 PCR: No results for input(s): "COVID19" in the last 72 hours. Objective: Vitals: BP 121/70 (BP Location: Right arm) Pulse 69 Temp 36.3 ?C (97.3 ?F) (Temporal) Resp 18 Ht 6' 3" (1.905 m) Wt 213 lb (96.6 kg) SpO2 95% BMI 26.62 kg/m? Pulse Ox: SpO2 Av % Min: 95 % Max: 95 % Supplemental O2: Physical Exam HENT: Head: Normocephalic and atraumatic. Mouth/Throat: Mouth: Mucous membranes are moist. Cardiovascular: Rate and Rhythm: Normal rate and regular rhythm. Pulmonary: Effort: Pulmonary effort is normal. Abdominal: Palpations: Abdomen is soft. Skin: General: Skin is warm and dry. Neurological: Mental Status: He is alert and oriented to person, place, and time. Comments: Paraplegia Medications: Scheduled PRN aspirin, 81 mg, Oral, Daily cefepime, 2,000 mg, IntraVENous, q8h docusate sodium, 100 mg, Oral, BID enoxaparin, 40 mg, SubCUTAneous, Daily insulin glargine, 45 Units, SubCUTAneous, q AM insulin lispro, 0-12 Units, SubCUTAneous, TID WC And insulin lispro, 0-12 Units, SubCUTAneous, Nightly mirtazapine, 7.5 mg, Oral, Nightly oxyCODONE, 15 mg, Oral, 4x daily pregabalin, 200 mg, Oral, TID tamsulosin, 0.4 mg, Oral, Daily therapeutic multivitamin-minerals, 1 tablet, Oral, Daily PRN medications: acetaminophen OR acetaminophen, bisacodyl, calcium carbonate, cyclobenzaprine, dextrose, dextrose, glucagon (rDNA), glucose, HYDROmorphone, naloxone, ondansetron ODT OR ondansetron, polyethylene glycol (PEG) 3350 Continuous Assessment Data: (CAT1) Reviewed 2 notes from different specialty or health system (each=1). (CAT1) Reviewed 3 or more labs/studies previously ordered by me not previously counted (each=1, panels count as 1). (CAT1) Ordered 3 or more new labs and/or studies (each=1, panels count as 1). ( (more content not included)... [facility] 05-20-2024 Hospital Discharge instructions Elly Cormier RN - 05/20/2024 7:34 AM EDT Images from the original note were not included. Continuity of Care Form Patient Name: Anmol Reynolds : 1960 Admit date: 05/17/2024 Discharge date: 05/22/2024 Code Status Order: Full Code Advance Directives: N Admitting Physician: Heydi Concepcion MD PCP: Tab Dupont Discharging Nurse: Elly Banks RN Discharging Hospital Unit/Room#: [id number]/[id number] A Discharging Unit Emergency Contact: Extended Emergency Contact Information Primary Emergency Contact: Ronald Reynolds Mobile Relation: Sibling Secondary Emergency Contact: GAILSUMI Mobile Relation: Daughter Past Surgical History: Past Surgical History: Procedure Laterality Date ANKLE SURGERY Right He has a titanium plate to the right ankle KNEE SURGERY Left ACL KNEE SURGERY Left removal of screw LAMINECTOMY Left 10/24/2020 LEFT BILATERAL L2-3-4-5 DECOMPRESSION performed by Opal Vigil MD at [facility] OR ORTHOPEDIC SURGERY Right removal of hardware ankle US PLACE URETAL STENT PERC PRE-EXIST TRACT S&I (HISTORICAL) Bilateral 04/14/2024 Dr. Patel/Bashir Immunization History: There is no immunization history on file for this patient. Active Problems: Medical Problems Problem List * (Principal) Positive blood cultures Hypertension Hyperglycemia Hip sprain Anxiety Septic shock (HCC) Pressure injury of coccygeal region, stage 3 (HCC) Bladder calculus Calculus of ureter Nicotine use disorder Unspecified osteoarthritis, unspecified site Pilonidal cyst without abscess Diabetes mellitus without complication (CMS/HCC) (HCC) Lumbar radiculopathy Abnormal finding on EKG Other intervertebral disc displacement, lumbar region Lumbar stenosis with neurogenic claudication Spinal stenosis of lumbar region with neurogenic claudication Herniated nucleus pulposus, L5-S1, left Isolation/Infection: No active isolations No active infections Nurse Assessment: Last Vital Signs: BP 138/83 (BP Location: Right arm, Patient Position: Sitting) Pulse 74 Temp 36.5 C (97.7 F) (Temporal) Resp 18 Ht 1.905 m (6' 3") Wt 96.6 kg (213 lb) SpO2 95% BMI 26.62 kg/m Last documented pain score (0-10 scale): Last Weight: Wt Readings from Last 1 Encounters: 05/19/24 96.6 kg (213 lb) Mental Status: ADELINE Patient Mental Status: oriented and alert IV Access: ADELINE IV Access: None Nursing Mobility/ADLs: Walking Total assistance Transfer Total assistance Bathing Total assistance Dressing Total assistance Toileting Total assistance Feeding Independent Chlorine Cells Operator Total assistance Med Delivery yes Wound Care Documentation and Therapy: Wound/Incision 04/14/24 Pressure Injury Sacrum (Active) Site Assessment Red 05/18/241843 [place]-Wound Assessment Red 05/18/241843 Wound Length (cm) 1.5 cm 05/18/241843 Wound Width (cm) 1 cm 05/18/241843 Wound Surface Area (cm^2) 1.5 cm^2 05/18/241843 Odor None 05/18/241843 Drainage Amount None 05/18/241843 Treatments Site care 05/18/241843 Primary Dressing Foam 05/18/242044 Dressing Status Clean, dry & intact 05/18/242044 Number of days: 35 Elimination: Continence: Bowel: no Bladder: no Urinary Catheter: Insertion date: 05/22/2024 Colostomy/Ileostomy/Ileal Conduit: None Date of Last BM: 05/22/2024 Intake/Output Summary (Last 24 hours) at 05/20/2024 0734 Last data filed at 05/20/2024 0729 Gross per 24 hour Intake 736 ml Output 2800 ml Net -2064 ml I/O last 3 completed shifts: In: 1222 (12.6 mL/kg) [P.O.:1222] Out: 3200 (33.1 mL/kg) [Urine:3200 (0.9 mL/kg/hr)] Weight: 96.6 kg Safety Concerns: at risk for falls Impairments/Disabilities: paralysis - Paraplegic Nutrition Therapy: Current Nutrition Therapy: Oral diet: general and carb control 4 carbs/meal (1800kcals/day) Routes of Feeding: oral Liquids: thin liquids Daily Fluid Restriction: no Last Modified Barium Swallow with Video (Video Swallowing Test): not done Treatments at the Time of Hospital Discharge: Respiratory Treatments: None Oxygen Therapy: is not on home oxygen therapy. Ventilator: No ventilator support Rehab Therapies: physical therapy, occupational therapy, nursing, and aide Weight Bearing Status/Restrictions: no restriction Other Medical Equipment (for information only, NOT a DME order): wheelchair Other Treatments: None Patient's personal belongings (please select all that are sent with patient): none RN SIGNATURE: MANAGEMENT/SOCIAL WORK SECTION Inpatient Status Date: 05/17/2024 Discharging to Facility/ Agency Name: [facility] Address: [address] [place] [address] Tuna Purse Seiner/Asphalt Screed Operator signature: ICIAN SECTION Name: Anmol Reynolds Prognosis: fair Condition at Discharge: stable Rehab Potential (if transferring to Rehab): fair Recommended Labs or Other Treatments After Discharge: cbc,cmp The individual is being admitted to a nursing facility directly from an [facility] or a unit of a [facility] that is not operated by or licensed by [facility] under section 5119.14 or 5160-3-15.1 5 The individual requires the level of services provided by a nursing facility for the condition for which he or she was treated in the hospital and, Physician Certification: I certify the above information and transfer of Anmol Reynolds is necessary for the continuing treatment of the diagnosis listed and that he requires prison facility for less than 30 days. Update Admission H&P: No change in H&P PHYSICIAN SIGNATURE: documented in this encounter [facility] 05-19-2024 Note Formatting of this n ote might be different from the original. Return Referral placed to [facility] via [facility] per TCC request. Await review and response regarding ability to accept. TCC notified. [facility] 05-19-2024 Note Formatting of this n ote might be different from the original. Return Referral placed to [facility] via [facility] per TCC request. Await review and response regarding ability to accept. TCC notified. [facility] 05-19-2024 Note Return Referral plac ed to [facility] via [facility] per TCC request. Await review and response regarding ability to accept. TCC notified. [facility] 05-19-2024 Note Formatting of this n ote might be different from the original. Care Managment Initial Assessment Date: 05/19/2024 Patient Name: Anmol Reynolds : 1960 Patient Information Source of Information: Patient Cognition/Language: WFL - Within Functional Limits Permission given to speak with patient pharmaceutical sales representative/caregiver as indicated: Yes Confirmation of Payer with patient/family: Yes Payer Name: Medicare A/B; [place] Medicaid : No Confirmation of Primary Care Physician: Confirmed PCP Name: Tab Nieves MD at facility Seen in last 2 years?: Yes Primary Caregiver: Other (Comment) (facility staff) If assistance needed, confirmed caregiver ready, willing and able to care for patient at discharge: No (n/a) Confirmed with: Living Arrangements Facility: Skilled Nursing[facility] Facility Name: [facility] Plan to Return: Yes Lives with: Alone, Other (Comment) (at [facility]) Support Systems: Children, Family members, Comments (Other) (facility staff) Activities of Daily Living Ambulation: Total Care (patient paraplegic waist down) Bathing/Dressing: Assistance Elimination/Continence/Toileting: Assistance Feeding: Independent Who Assists with Activities of Daily Living: Instrumental Activities of Daily Living Prescription Coverage: Yes Pharmacy Used: facility manages Medication Management: Transportation/Shopping: Assistance Provider Transportation/Shopping Assistance Provider Name: cot transport Transportation Mode: Needs Assistance with Transportation at Discharge: Yes Meal Preparation: Assistance Provider Meal Prep Assistance Provider Name: facility manages Laundry/Cleaning: Assistance Provider Laundry/Cleaning Assistance Provider Name: facility manages Finances/Bill Paying: Communication: Independent Types of Care Services/Equipment Utilized Durable Medical Equipment: Wheelchair (standard or power), Hospital Bed, [place] Lift Patient's Goal/Discharge Plan Patient expects to be discharged to: return to ECF Discharge Planning Actions: Continue to follow, [facility] Facility referral indicated [place] of choice: [facility] of choice discussed (choice list not indicated; patient is a return to ECF) Patient's Choice Rights and [employer] and Collaborative Relationships Disclosed as Indicated for Post-Acute Care: Yes Interdisciplinary Team Engagement: Social Work Referral for: Additional Information: Introduced self and role to patient at bedside. Patient admitted with +BC x1 from ECF. Patient with recent bilateral ureteral stent placement 2/2 bilateral hydronephrosis. +chronic santana. +IV abx. Urine and blood cultures pending ID consulted. Patient is a resident at [facility] xfew years. Patient confirmed plan for return. RETAIL [employer] PRO tasked to place return referral. Anticipate discharge in 2-3 days pending medical stability. Patient will need transport. TCC to continue to follow. Vipin Peter RN [facility] 05-19-2024 Note Formatting of this n ote might be different from the original. Care Managment Initial Assessment Date: 05/19/2024 Patient Name: Anmol Reynolds : 1960 Patient Information Source of Information: Patient Cognition/Language: WFL - Within Functional Limits Permission given to speak with patient pharmaceutical sales representative/caregiver as indicated: Yes Confirmation of Payer with patient/family: Yes Payer Name: Medicare A/B; [place] Medicaid [place]: No Confirmation of Primary Care Physician: Confirmed PCP Name: Tab Nieves MD at facility Seen in last 2 years?: Yes Primary Caregiver: Other (Comment) (facility staff) If assistance needed, confirmed caregiver ready, willing and able to care for patient at discharge: No (n/a) Confirmed with: Living Arrangements Facility: Skilled Nursing/[facility] Facility Name: [facility] Plan to Return: Yes Lives with: Alone, Other (Comment) (at [facility]) Support Systems: Children, Family members, Comments (Other) (facility staff) Activities of Daily Living Ambulation: Total Care (patient paraplegic waist down) Bathing/Dressing: Assistance Elimination/Continence/Toileting: Assistance Feeding: Independent Who Assists with Activities of Daily Living: Instrumental Activities of Daily Living Prescription Coverage: Yes Pharmacy Used: facility manages Medication Management: Transportation/Shopping: Assistance Provider Transportation/Shopping Assistance Provider Name: cot transport Transportation Mode: Needs Assistance with Transportation at Discharge: Yes Meal Preparation: Assistance Provider Meal Prep Assistance Provider Name: facility manages Laundry/Cleaning: Assistance Provider Laundry/Cleaning Assistance Provider Name: facility manages Finances/Bill Paying: Communication: Independent Types of Care Services/Equipment Utilized Durable Medical Equipment: Wheelchair (standard or power), Hospital Bed, [place] Lift Patient's Goal/Discharge Plan Patient expects to be discharged to: return to ECF Discharge Planning Actions: Continue to follow, [facility] Facility referral indicated [place] of choice: [facility] of choice discussed (choice list not indicated; patient is a return to ECF) Patient's Choice Rights and [employer] and Collaborative Relationships Disclosed as Indicated for Post-Acute Care: Yes Interdisciplinary Team Engagement: Social Work Referral for: Additional Information: Introduced self and role to patient at bedside. Patient admitted with +BC x1 from ECF. Patient with recent bilateral ureteral stent placement 2/2 bilateral hydronephrosis. +chronic santana. +IV abx. Urine and blood cultures pending ID consulted. Patient is a resident at [facility] xfew years. Patient confirmed plan for return. RETAIL [employer]S PRO tasked to place return referral. Anticipate discharge in 2-3 days pending medical stability. Patient will need transport. TCC to continue to follow. Vipin Peter RN [facility] 05-19-2024 Note [facility] - Infectious Diseases DOCUMENT MANAGEMENT TECHNICIAN Progress Note Subjective: Following for CoNS positive BC (one set from [facility]); proteus UTI. Notes reviewed. No acute overnight events. Denies flank pain or abdominal pain. Urine grew proteus. Repeat blood cx so far NGTD. Objective: Vitals: Patient Vitals for the past 24 hrs: BP Temp Temp src Pulse Resp SpO2 05/19/24 0727 129/84 36.6 ?C (97.8 ?F) Temporal 73 18 99 % 05/18/24 1939 158/86 36.5 ?C (97.7 ?F) Temporal 83 20 94 % 05/18/24 1824 128/81 36.2 ?C (97.2 ?F) Temporal 82 20 96 % 05/18/24 1730 121/80 -- -- 71 16 98 % 05/18/24 1412 125/77 -- -- 77 16 100 % 05/18/24 1143 129/84 -- -- 75 16 99 % Physical Exam Vitals and nursing note reviewed. Constitutional: General: He is not in acute distress. Appearance: Normal appearance. He is not toxic-appearing. Comments: Alert, interactive and conversant, NAD. HENT: Head: Normocephalic and atraumatic. Mouth/Throat: Mouth: Mucous membranes are moist. Pharynx: Oropharynx is clear. Eyes: Conjunctiva/sclera: Conjunctivae normal. Cardiovascular: Rate and Rhythm: Normal rate and regular rhythm. Heart sounds: No murmur heard. Pulmonary: Effort: Pulmonary effort is normal. No respiratory distress. Breath sounds: Normal breath sounds. No wheezing, rhonchi or rales. Abdominal: General: Bowel sounds are normal. There is no distension. Palpations: Abdomen is soft. Tenderness: There is no abdominal tenderness. There is no right CVA tenderness, left CVA tenderness or guarding. Genitourinary: Comments: + santana catheter with yellow urine and sediment Musculoskeletal: Cervical back: Neck supple. Right lower leg: No edema. Left lower leg: No edema. Comments: + healed posterior lumbar scar Skin: General: Skin is warm and dry. Findings: No erythema or rash. Comments: + small sacral decubitus without drainage or s/o inflammation Neurological: Mental Status: He is alert and oriented to person, place, and time. Motor: Weakness present. Comments: + paraplegia Psychiatric: Mood and Affect: Mood normal. Behavior: Behavior normal. Labs: Recent Labs 05/17/24205705/18/24 0605/19/24 0407 NA 136 136 134* K 4.4 4.5 3.4* CL 109* 108* 110* CO2 20* 22 21* BUN 12 13 11 CREATININE 0.68 0.64* 0.44* GLUCOSE 172* 143* 212* CALCIUM 8.7 8.6 8.4 PROT -- -- 6.3 BILITOT -- -- 0.6 ALKPHOS -- -- 155* AST -- -- 29 ALT -- -- 19 Recent Labs 05/17/24205705/18/2420 05/19/24 0407 WBC 3.5* 7.7 5.4 HGB 19.6* 12.5* 12.0* HCT 60.0* 38.7* 35.8* PLT 105* 222 212 LYMPHOPCT 26.9 28.0 -- MONOPCT 6.8 9.6 -- BASOPCT 0.8 0.8 -- NEUTROABS 2.0 4.3 -- Micro: 05/18- urine cx >100k proteus mirabilis 05/17- blood cx- 2/2 NGTD 05/16- blood cx- 10/05 CoNS ([facility]) 05/05- tissue from bladder- C parapsilosis, K aerogenes, pseudomonas, skin gosia 04/16- blood cx- 2/2 negative 04/15- MRSA by PCR- MSSA 04/15- urine cx- 50-90k providencia stuartii 04/14- blood cx- 1/2 P mirablis, 2/2 P stuartii, M morganii Lines: PIV Radiography/Echo/Other: Reviewed- no new Antimicrobials,Start/End Dates: Pip/tazo: 05/17-05/18 Cefepime: 05/18-present Impression: CoNS positive blood cultures one set ([facility])- contaminant Proteus UTI in setting of santana catheter s/p changed in ED Recent cystoscopy, B laser lithotripsy and ureteral stent exchange (05/06) Tissue cx + pseudomonas, klebsiella, and c parapsilosis hydronephrosis and obstruction due to bilateral ureteral calculus s/p cystoscopy, bilateral stent change and santana cath insertion on (04/14/24). Recent h/o proteus, providencia and morganella bacteremia d/t complicated UTI; treated H/o MRSA BSI c/b L2-L3 epidural abscess and R psoas abscess (01/2022); treated by [facility] ID Paraplegia w neurogenic bladder s/p chronic santana d/t #5 Plan: Continue cefepime to also cover Psg in tissue cultures from 05/06 CoNS + blood cx from OSH is likely contaminant; repeat BC off of effective antimicrobial therapy so far without growth. Pt does not recall taking minocycline for suppression and has not followed up with [facility]-ID since his surgery in 2021. Will not start minocycline as subsequent blood cx did not grow MRSA. ID service will continue to follow; plan d/w Dr. Montano. Rosalinda Fox, [facility] - Infectious Diseases 3:08 PM 05/19/2024 Based on diagnoses and management, combination of acute and chronic problems, exacerbations and/or acuity, this visit should be considered to be of moderate complexity. [facility] 05-19-2024 Note Hospitalist Progress Note 05/19/2024 Subjective: Admit Date: 05/17/2024 PCP: AMBROSIO MONROY DO Room#: W6-799/W6-800 A Brief Hospital course: Anmol is a 63 y.o. male with past medical history below who presented to ED for evaluation of positive blood cultures. Patient is paraplegic due to spinal surgery that was done 2 years ago patient was evaluated and admitted on 04/14/2024 was noted to be in septic shock complicated UTI with bacteremia. Blood cultures were positive at that time for Proteus, providencia, morganella patient was treated by ID with PICC line that was placed on 04/20/2024 with ertapenem. Patient had repeat blood cultures that were drawn at facility on 05/13/2024, results are noted to be positive for gram-positive cocci in clusters. Dr. Moyer of infectious disease was consulted at that time and recommended patient come to the hospital for IV antibiotics. Admitted for further evaluation and management. ID consulted Interval History: 05/19/2024-No overnight issues. Patient is seen and examined Patient is sleeping in his bed without any acute distress Denies any new acute complaints Labs reviewed sodium 134, potassium 3.4, replaced, urine culture grew Proteus mirabilis Case and plan discussed with patient and bedside nurse. All questions answered. Past Medical History: Past Medical History: Diagnosis Date Abnormal posture Abscess, perineum Anemia BPH (benign prostatic hyperplasia) Chronic back pain Hematuria Hip sprain Hyperlipidemia Hypertension Major depressive disorder, single episode, unspecified MRSA (methicillin resistant staph aureus) culture positive spine 2021 Muscle wasting and atrophy, not elsewhere classified, left lower leg Muscle weakness (generalized) Neuropathy Obstructive and reflux uropathy, unspecified Osteoarthritis Other abnormalities of gait and mobility Other reduced mobility Paraplegia (HCC) Sciatica Spinal stenosis of lumbar region with neurogenic claudication Type 2 diabetes mellitus without complication ([facility]/HCC) (HCC) Urinary calculus, unspecified UTI (urinary tract infection) Adult diet Regular 24HR INTAKE/OUTPUT: Intake/Output Summary (Last 24 hours) at 05/19/2024 1005 Last data filed at 05/19/2024 0727 Gross per 24 hour Intake 934.33 ml Output 1950 ml Net -1015.67 ml LABS: CBC: Recent Labs 05/17/248 05/18/24 0620 05/19/24 0407 WBC 3.5* 7.7 5.4 RBC 6.51* 4.13* 3.96* HGB 19.6* 12.5* 12.0* HCT 60.0* 38.7* 35.8* MCV 92.2 93.7 90.4 RDW 16.8* 15.6* 14.9 PLT 105* 222 212 BMP: Recent Labs 05/17/24205705/18/2420 05/19/24 0407 NA 136 136 134* K 4.4 4.5 3.4* CL 109* 108* 110* CO2 20* 22 21* BUN 12 13 11 CREATININE 0.68 0.64* 0.44* GLUCOSE 172* 143* 212* CALCIUM 8.7 8.6 8.4 ANIONGAP 6 5 3 LIVER PROFILE: Recent Labs 05/19/24 0407 AST 29 ALT 19 BILITOT 0.6 ALKPHOS 155* PROT 6.3 PT/INR: No results for input(s): "PROTIME", "INR" in the last 72 hours. CARDIAC ENZYMES: No results for input(s): "TROPONINI" in the last 72 hours. Procalcitonin: No results found for: "PROCAL" COVID-19 PCR: No results for input(s): "COVID19" in the last 72 hours. Objective: Vitals: BP 129/84 (BP Location: Right arm, Patient Position: Sitting) Pulse 73 Temp 36.6 ?C (97.8 ?F) (Temporal) Resp 18 Ht 6' 3" (1.905 m) Wt 200 lb (90.7 kg) SpO2 99% BMI 25.00 kg/m? Pulse Ox: SpO2 Av.7 % Min: 94 % Max: 100 % Supplemental O2: Physical Exam HENT: Head: Normocephalic and atraumatic. Mouth/Throat: Mouth: Mucous membranes are moist. Cardiovascular: Rate and Rhythm: Normal rate and regular rhythm. Pulmonary: Effort: Pulmonary effort is normal. Abdominal: Palpations: Abdomen is soft. Skin: General: Skin is warm and dry. Neurological: Mental Status: He is alert and oriented to person, place, and time. Comments: Paraplegia Medications: Scheduled PRN aspirin, 81 mg, Oral, Daily cefepime, 2,000 mg, IntraVENous, q8h docusate sodium, 100 mg, Oral, BID enoxaparin, 40 mg, SubCUTAneous, Daily insulin glargine, 45 Units, SubCUTAneous, q AM insulin lispro, 0-12 Units, SubCUTAneous, TID WC And insulin lispro, 0-12 Units, SubCUTAneous, Nightly mirtazapine, 7.5 mg, Oral, Nightly oxyCODONE ER, 15 mg, Oral, 2 times per day pregabalin, 200 mg, Oral, TID tamsulosin, 0.4 mg, Oral, Daily therapeutic multivitamin-minerals, 1 tablet, Oral, Daily PRN medications: acetaminophen OR acetaminophen, bisacodyl, calcium carbonate, cyclobenzaprine, dextrose, dextrose, glucagon (rDNA), glucose, HYDROmorphone, naloxone, ondansetron ODT OR ondansetron, polyethylene glycol (PEG) 3350 Continuous Assessment Data: (CAT1) Reviewed 2 notes from different specialty or health system (each=1). (CAT1) Reviewed 3 or more labs/studies previously ordered by me not previously counted (each=1, panels count as 1). (CAT1) Ordered 3 or more new (more content not included)... [facility] 05-18-2024 Plan of care note The patient is Moderately Stable - Low risk of patient condition declining or worsening The patient's goals for the shift include Pain control. The clinical goals for the shift include Patient to remain free of injury for the entirety of the shift. [facility] 05-18-2024 Note Problem: Knowledge D eficit Goal: Patient/family/caregiver demonstrates understanding of disease process, treatment plan, medications, and discharge instructions Outcome: Progressing [facility] 05-18-2024 Plan of care note Problem: Knowledge Deficit Goal: Patient/family/caregiver demonstrates understanding of disease process, treatment plan, medications, and discharge instructions Outcome: Progressing [facility] 05-18-2024 Emergency department Note Pt refusing BG check stating "I'm already eating." aware. Ella Zavala RN 05/18/24 5445 [facility] 05-18-2024 Emergency department Note Pt refusing BG check stating "I'm already eating." aware. Ella Zavala RN 05/18/24 1805 Pt refusing BG check at this time. aware. Ella Zavala RN 05/18/24 1237 Pt refusing continuous IV fluids. MD janette Zavala RN 05/18/24 1051 Pt moved onto hospital bed, denies any needs or complaints at this time. Ella Zavala RN 05/18/24 1026 Pharmacy contacted regarding missing oxycodone. Ella Zavala RN 05/18/24 1052 Pt refused BG check/meds at this time stating "I just want some sleep." Hospital bed ordered for pt. Meds deferred at this time. Ella Zavala RN 05/18/24 0822 Pt had a bowel movement, this RN & another RN cleaned pt. Carmen Crews RN 05/18/24 4954 Pt transport has been requested Carmen Crews RN 05/18/24 0433 Pt is asleep, w/ unlabored breathing Carmen Crews RN 05/18/24 0155 Carmen Crews RN 05/18/24 0156 EMERGENCY DEPARTMENT ENCOUNTER Pt Name: Anmol Reynolds Birthdate 1960 Date of evaluation: 05/17/2024 ED Provider: Terri Simeon PA-C CHIEF COMPLAINT Chief Complaint Patient presents with Other Abnormal labs, blood cultures has been done to pt in facility, gram + cocci. Had back sx 2 yrs ago that resulted to paraplegia, pt is paralyze from waist down. Afebrile, aox4 HISTORY OF PRESENT ILLNESS (Location/Symptom, Timing/Onset, Context/Setting, Quality, Duration, Modifying Factors, Severity) Note limiting factors. I wore appropriate PPE for the entirety of this encounter. HPI Anmol Reynolds is a 63 y.o. male who presents to the emergency department for evaluation of positive blood cultures. Patient is paraplegic due to spinal surgery that was done 2 years ago patient was evaluated and admitted on 04/14/2024 was noted to be in septic shock complicated UTI with bacteremia. Blood cultures were positive at that time for Proteus, providencia, morganella patient was treated by ID with PICC line that was placed on 04/20/2024 with ertapenem. Patient had repeat blood cultures that were drawn at facility yesterday 05/13/2024. Pulmonary results are noted to be positive for gram-positive cocci in clusters. Dr. Moyer of infectious disease was consulted at that time and recommended patient come to the hospital for IV antibiotics. Nursing Notes were reviewed. Limitations to history: None Outside historians: None REVIEW OF SYSTEMS Review of Systems 7 systems reviewed, positives and pertinent negatives as per HPI. All other systems were reviewed and are negative. PAST MEDICAL HISTORY Past Medical History: Diagnosis Date Abnormal posture Abscess, perineum Anemia BPH (benign prostatic hyperplasia) Chronic back pain Hematuria Hip sprain Hyperlipidemia Hypertension Major depressive disorder, single episode, unspecified MRSA (methicillin resistant staph aureus) culture positive spine 2021 Muscle wasting and atrophy, not elsewhere classified, left lower leg Muscle weakness (generalized) Neuropathy Obstructive and reflux uropathy, unspecified Osteoarthritis Other abnormalities of gait and mobility Other reduced mobility Paraplegia (HCC) Sciatica Spinal stenosis of lumbar region with neurogenic claudication Type 2 diabetes mellitus without complication (CMS/HCC) (HCC) Urinary calculus, unspecified UTI (urinary tract infection) SURGICAL HISTORY Past Surgical History: Procedure Laterality Date ANKLE SURGERY Right He has a titanium plate to the right ankle KNEE SURGERY Left ACL KNEE SURGERY Left removal of screw LAMINECTOMY Left 10/24/2020 LEFT BILATERAL L2-3-4-5 DECOMPRESSION performed by Opal Vigil MD at [facility] OR ORTHOPEDIC SURGERY Right removal of hardware ankle US PLACE URETAL STENT PERC PRE-EXIST TRACT S&I (HISTORICAL) Bilateral 04/14/2024 Dr. Patel/Bashir CURRENT MEDICATIONS Previous Medications ACETAMINOPHEN (TYLENOL) 325 MG TABLET Take 650 mg by mouth every 6 hours as needed. For elevated temp and/or pain. Do not exceed 3 grams in 24 hour period. ACETIC ACID 0.25 % IRRIGATION ALOGLIPTIN (NESINA) 25 MG TABLET daily. ASPIRIN 81 MG EC TABLET Take 81 mg by mouth daily. BISACODYL (DULCOLAX) 5 MG EC TABLET Take 5 mg by mouth Daily as needed for constipation. Do not crush, chew, or split. BISACODYL (DULCOLAX) 5 MG SPLIT SUPPOSITORY Insert into the rectum Daily as needed. CALCIUM CARBONATE (TUMS) 500 MG CHEWABLE TABLET 1,000 mg every 8 hours as needed for indigestion or heartburn. CLOTRIMAZOLE-BETAMETHASONE (LOTRISONE) CREAM CYCLOBENZAPRINE (FLEXERIL) 10 MG TABLET Take 10 mg by mouth 3 times daily as needed for muscle spasms. DOCUSATE SODIUM (COLACE) 100 MG TABLET Take 100 mg by mouth 2 times daily. FERROUS SULFATE 325 (65 FE) MG TABLET Take 325 mg by mouth daily (with breakfast). HYDROMORPHONE (DILAUDID) 4 MG TABLET Take by mouth every 4 hours as needed for severe pain (7-10). For pain 3-10/10 HYPROMELLOSE (PURE & GENTLE LUBRICANT) 0.3 % SOLUTION Administer 1 drop into affected eye(s) if needed. INSULIN GLARGINE (LANTUS) 100 UNIT/ML PEN Inject 45 Units under the skin every morning. INSULIN LISPRO (HUMALOG) 100 UNIT/ML SOLUTION INJECTION Inject 0-28 Units under the skin. 0-160=0 units; 161-200=14 units, 201-250=18 units, 251-300=20 units 301-350=22 units, 351-400=28 units, 401 or higher give 28 units and call physician. MAGNESIUM HYDROXIDE (MILK OF MAGNESIA PO) Take 30 mL by mouth Daily as needed. MIRTAZAPINE (REMERON) 7.5 MG TABLET Take 7.5 mg by mouth Nightly. MULTIPLE VITAMIN (MULTIVITAMIN) CAPSULE Take 1 capsule by mouth daily. NALOXONE (NARCAN) 4 MG/0.1 ML NASAL SPRAY OXYCODONE ER (OXYCONTIN) 15 MG 12 HR TABLET Do not crush, chew, or split. POLYETHYLENE GLYCOL, PEG, 3350 (MIRALAX) 17 G PACKET Take 17 g by mouth in the morning and 17 g in the evening. POTASSIUM CHLORIDE CR (KLOR-CON M20) 20 MEQ ER TABLET 40 mEq daily. PREGABALIN (LYRICA) 200 MG CAPSULE Take 1 capsule (200 mg) by mouth 3 times daily for 7 days. SODIUM CHLORIDE 0.9 % IRRIGATION SOLUTION Irrigate with as directed. 10 ml every 12 hours before and after medication administration TAMSULOSIN (FLOMAX) 0.4 MG 24 HR CAPSULE 0.4 mg daily. ALLERGIES Patient has no known allergies. FAMILY HISTORY No family history on file. SOCIAL HISTORY Social History Socioeconomic History Marital status: Tobacco Use Smoking status: Every Day Current packs/day: 0.25 Average packs/day: 0.5 packs/day for 43.6 years (21.2 ttl pk-yrs) Types: Cigarettes Start date: 1977 Smokeless tobacco: Never Vaping Use Vaping status: Every Day Substances: Nicotine, Flavoring Substance and Sexual Activity Alcohol use: No Drug use: No Social Determinants of Health Financial Resource Strain: Low Risk (04/24/2023) Received [facility], [facility] Overall Financial Resource Strain (CARDIA) Difficulty of Paying Living Expenses: Not hard at all Food Insecurity: No Food Insecurity (05/05/2024) Hunger Vital Sign Worried About Running Out of Food in the Last Year: Never true Ran Out of Food in the Last Year: Never true Transportation Needs: No Transportation Needs (05/05/2024) PRAPARE - Transportation Lack of Transportation (Medical): No Lack of Transportation (Non-Medical): No Intimate Partner Violence: Not At Risk (05/05/2024) Humiliation, Afraid, Rape, and Kick questionnaire Fear of Current or Ex-Partner: No Emotionally Abused: No Physically Abused: No Sexually Abused: No Housing Stability: Low Risk (05/05/2024) Housing Stability Vital Sign Unable to Pay for Housing in the Last Year: No Number of Times Moved in the Last Year: 0 Homeless in the Last Year: No SCREENINGS Beatrice Coma Scale Best Eye Response: Spontaneous Best Verbal Response: Oriented Best Motor Response: Follows commands Beatrice Coma Scale Score: 15 PHYSICAL EXAM ED Triage Vitals [05/17/242033] Temp Heart Rate Resp BP 36.4 C (97.5 F) 78 12 123/84 SpO2 Temp Source Heart Rate Source Patient Position 96 % Oral Monitor Lying BP Location FiO2 (%) -- -- Physical Exam Vitals and nursing note reviewed. Constitutional: General: He is not in acute distress. Appearance: He is not toxic-appearing. Comments: 64-year-old male who does not appear to be in acute distress or discomfort. HENT: Head: Normocephalic and atraumatic. Nose: Nose normal. Eyes: Conjunctiva/sclera: Conjunctivae normal. Cardiovascular: Rate and Rhythm: Normal rate and regular rhythm. Pulses: Normal pulses. Heart sounds: Normal heart sounds. Pulmonary: Effort: Pulmonary effort is normal. Abdominal: Comments: Abdomen soft and nonrigid. No tenderness palpation of abdomen diffusely. Musculoskeletal: Cervical back: Normal range of motion and neck supple. Skin: General: Skin is warm and dry. Capillary Refill: Capillary refill takes less than 2 seconds. Neurological: General: No focal deficit present. Mental Status: He is alert and oriented to person, place, and time. Psychiatric: Mood and Affect: Mood normal. DIAGNOSTIC RESULTS RADIOLOGY (Per Emergency Physician): Interpretation per the Radiologist below, if available at the time of this note: No orders to display LABS: Labs Reviewed CBC WITH AUTO DIFFERENTIAL - Abnormal Result Value Auto WBC 3.5 (*) RBC 6.51 (*) Hemoglobin 19.6 (*) Hematocrit 60.0 (*) MCV 92.2 MCH 30.1 MCHC 32.7 RDW 16.8 (*) Platelets 105 (*) MPV 9.9 nRBC 0.0 Neutrophils Relative 57.8 Lymphocytes Relative 26.9 Monocytes Relative 6.8 Eosinophils Relative 7.4 (*) Basophils Relative 0.8 Immature Grans % 0.3 Neutrophils Absolute 2.0 Lymphocytes Absolute 1.0 Monocytes Absolute 0.2 Eosinophils Absolute 0.3 Basophils Absolute 0.0 Immature Grans Absolute 0.0 BASIC METABOLIC PANEL - Abnormal SODIUM 136 POTASSIUM 4.4 CHLORIDE 109 (*) CARBON DIOXIDE 20 (*) UREA NITROGEN 12 CREATININE 0.68 GLUCOSE 172 (*) CALCIUM 8.7 ANION GAP 6 eGFR >90.0 COMPLETE URINALYSIS - Abnormal Color, Urine Yellow Clarity, Urine Turbid (*) pH, Urine 8.0 Leukocytes, Urine 500 (*) Nitrite, Urine Positive (*) Protein, Urine 100 (*) Glucose, Urine Normal Bilirubin, Urine Negative Ketones, Urine Negative Urobilinogen, Urine Normal Blood, Urine 1.0 (*) RBC, Urine 11-25 (*) WBC, Urine >100 (*) Squamous Epithelial, Urine Negative Bacteria, Urine Many (*) Mucus, Urine Few Triple Phosphate Crystals, Urine Few (*) SPECIFIC GRAVITY OF URINE (NUMERIC) 1.016 BLOOD CULTURE - Normal Blood Culture Blood culture incubation started Narrative: Blood Collection Site: Left Antecubital BLOOD CULTURE - Normal Blood Culture Blood culture incubation started Narrative: Blood Collection Site: Left Arm LACTIC ACID WITH REFLEX - Normal LACTIC ACID 1.4 URINE CULTURE COMPLETE URINALYSIS WITH REFLEX TO CULTURE Narrative: The following orders were created for panel order Urinalysis complete with reflex to Culture. Procedure Abnormality Status --------- ------ Complete Urinalysis[[id number]] Abnormal Final result Please view results for these tests on the individual orders. COMPLETE URINALYSIS WITH REFLEX TO CULTURE Narrative: The following orders were created for panel order Urinalysis complete with reflex to Culture. Procedure Abnormality Status --------- ------ Complete Urinalysis[[id number]] Please view results for these tests on the individual orders. COMPLETE URINALYSIS All other labs were within normal range or not returned as of this dictation. EMERGENCY DEPARTMENT COURSE and DIFFERENTIAL DIAGNOSIS/MDM: Vitals: Vitals: 05/17/24203305/17/242305 BP: 123/84 118/68 Patient Position: Lying Lying Pulse: 78 70 Resp: 12 18 Temp: 36.4 C (97.5 F) TempSrc: Oral SpO2: 96% Medications sodium chloride 0.9 % bolus 1,000 mL (1,000 mL IntraVENous New Bag 05/17/242155) piperacillin-tazobactam (Zosyn) IVPB 3,375 mg (0 mg IntraVENous Stopped 05/17/242227) morphine injection 4 mg (4 mg IntraVENous Given 05/17/242152) ondansetron (Zofran) injection 4 mg (4 mg IntraVENous Given 05/17/242152) ED care was supervised by Dr. Guerrero who independently examined and evaluated the patient. Please see their attestation note for further details. In brief, Anmol Reynolds is a 63 y.o. male who presented to the emergency department for abnormal blood culture results. See HPI further details. Nursing notes and medical records reviewed, patient was admitted on 04/14/2024 for septic shock complicated with UTI with positive blood cultures. Patient was treated with PICC line and ertapenem at that time. Repeat blood cultures that were taken from an outside facility had pulmonary results that were positive for gram-positive cocci in clusters. Dr. Moyer of infectious disease was consulted and recommended he go to the hospital for IV antibiotics. Differential considerations included sepsis, positive blood cultures, contamination Initial medical management includes Zosyn. Initial workup includes CBC, BMP, lactic acid, urinalysis, blood cultures. Lab workup results CBC shows mild leukopenia of 3.5. Hemoglobin is 19.6. Lactic acid within normal limits. BMP shows no significant electrolyte abnormalities. Urine is grossly infected although has indwelling Santana catheter. Nursing staff was notified to replace Santana catheter and get a repeat urine sample. Chronic conditions contributing to patients presentation include paraplegia, type 2 diabetes mellitus, hyperlipidemia, chronic indwelling Santana catheter, hypertension. Social determinants to care: None noted. Diagnosis positive blood cultures. Disposition admission to medical floor for IV antibiotics and further management of positive blood cultures. Recommend ID consult on admission. Patient admitted in stable condition. PROCEDURES: Unless otherwise noted below, none Procedures FINAL IMPRESSION 1. Positive blood cultures DISPOSITION Admit 05/17/2024 11:54:10 PM PATIENT REFERRED TO: No follow-up provider specified. DISCHARGE MEDICATIONS: New Prescriptions No medications on file (Comment: Please note this report has been produced using speech recognition software and may contain errors related to that system including errors in grammar, punctuation, and spelling, as well as words and phrases that may be inappropriate. If there are any questions or concerns please feel free to contact the dictating provider for clarification.) Terri Simeon PA-C (electronically signed) Emergency Medicine Provider Terri Simeon PA-C 05/17/24 9625 Emergency Department Encounter [facility] EMERGENCY DEPT Patient: Anmol Reynolds : 1960 Date of Evaluation: 05/17/2024 ED Supervising Physician: Rodney Guerrero DO I personally evaluated Anmol Reynolds and made/approved the management plan and take responsibility for the patient management. This will serve as my Supervisory note and shared attestation. I did perform a substantive portion of the visit including all aspects of the Medical Decision Making. I wore appropriate PPE for the entirety of this encounter. In brief, Anmol Reynolds is a 63 y.o. that presents to the emergency department presents to the emergency department with complaints of abnormal blood cultures. Patient is a paraplegic with chronic indwelling catheter. Outpatient blood culture showed gram-positive in clusters thus was sent in for further evaluation management. Patient has no acute complaints at this time Focused exam: On exam, vitals stable. Gen: Nontoxic appearing. Head: NC/AT. CV: RRR. Resp: CTA bilaterally. Abd: Abd soft and notender. Ext: No obvious deformity or abnormalities of bilat UE and LE, Pulses 2+ bilateral UE and LE. Neuro: Baseline LE deficits Skin: No obvious rashes, warm, dry Brief ED course/MDM: Patient with hx of paraplegia, previous sepsis presents to the ED with complaints of abnl blood cultures. Additional information found above and also refer to aaliyah/resident note for further details. On exam, vitals stables. Per above. Otherwise per above Additional information found above and also refer to aaliyah/resident note for further details. With consideration of age, sex/gender, risk factors, to evaluate patient for high risk causes of morbidity and mortality such as, but not limited to, sepsis vs other Today we will obtain labs and imaging We will also provide medical/symptomatic management with zosyn. Discussed plan with patient who agrees with current plan. Diagnostics interpreted by me: Per below I personally discussed the patient's management with other clinicians: None End of visit medical decision making Patient was reassessed. Resting comfortably. No acute distress. Independently reviewed and interpreted the lab results which demonstrated the following: Significant electrolyte abnormalities, leukopenia at 3.5, hemoglobin of 19, UA with signs of cystitis Response to medical management provided in the ED: improving Discussed all results with patient and/or family members. They verbalize understanding. Offered admission for further management. Discussed risks, benefits and alternatives for further management in the hospital. Due to high risk of morbidity and mortality of the stated findings and results, patient will be admitted for further management and care. Patient is agreeable to the plan. Discussed patient, presentation and workup with admitting team. Admitting team is agreeable to current workup and evaluation. They will admit the patient and provide further care. Pending results to be followed by primary admitting team. All diagnostic, treatment, and disposition decisions were made by myself in conjunction with the AALIYAH. For all further details of the patient's emergency department visit, please see their documentation. (Comment: Please note this report has been produced using speech recognition software and may contain errors related to that system including errors in grammar, punctuation, and spelling, as well as words and phrases that may be inappropriate. If there are any questions or concerns please feel free to contact the dictating provider for clarification.) Rodney Guerrero DO [employer] [facility] [employer] Rodney Guerrero DO 05/18/24 0435 documented in this encounter [facility] 05-18-2024 Emergency department Note Pt refusing BG check at this time. aware. Ella Zavala RN 05/18/24 1237 [facility] 05-18-2024 Emergency department Note Pt refusing continuous IV fluids. aware Ella Zavala RN 05/18/24 1051 [facility] 05-18-2024 Emergency department Note Pt moved onto hospital bed, denies any needs or complaints at this time. Ella Zavala RN 05/18/24 1026 [facility] 05-18-2024 Emergency department Note Pharmacy contacted regarding missing oxycodone. Ella Zavala RN 05/18/24 1052 [facility] 05-18-2024 Consult note Associated Order (s): IP CONSULT TO INFECTIOUS DISEASES Images from the original note were not included. 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 He required I&D x2 with KRIS (01/06/22) and T12-L5 posterior spinal instrumentation (01/14/22)--> followed by [facility] and treated with 6 weeks daptomycin with suppressive minocycline. Pt presented to [facility] ED on 05/17/2024 for evaluation of positive blood cultures. Pt was recently admitted to [facility] 04/14-04/20/2024 with proteus, providencia, and morganella bacteremia d/t complicated UTI. He underwent cystoscopy, bilateral stent change and santana catheter insertion (04/14) for B hydronephrosis and obstruction due to B ureteral calculus. He completed 2 weeks of IV Ertapenem through 04/30. On 05/06 he underwent cystoscopy, B laser lithotripsy and ureteral stent exchange. He had surveillance blood cultures collected on 05/16 growing GPC in clusters in one set. He was advised to go to ED for evaluation and IV antibiotics. Pt denies any symptoms of fevers, chills, sob, chest pain, cough, nausea, vomiting, abdominal pain or urinary complaints. He presented to ED afebrile and hemodynamically stable. Work up shows: WBC 3.5, LA 1.4, Scr 0.68. UA shows evidence of infection with >100 wbc and many bacteria in setting of santana catheter. Santana was exchanged in ED. Repeat blood cultures were drawn in ED. He received pip/tazo. ID consulted to assist with antimicrobial management. Past Medical History: Past Medical History: Diagnosis Date Abnormal posture Abscess, perineum Anemia BPH (benign prostatic hyperplasia) Chronic back pain Hematuria Hip sprain Hyperlipidemia Hypertension Major depressive disorder, single episode, unspecified MRSA (methicillin resistant staph aureus) culture positive spine 2021 Muscle wasting and atrophy, not elsewhere classified, left lower leg Muscle weakness (generalized) Neuropathy Obstructive and reflux uropathy, unspecified Osteoarthritis Other abnormalities of gait and mobility Other reduced mobility Paraplegia (HCC) Sciatica Spinal stenosis of lumbar region with neurogenic claudication Type 2 diabetes mellitus without complication ([facility]/HCC) (HCC) Urinary calculus, unspecified UTI (urinary tract infection) Past Surgical History: Past Surgical History: Procedure Laterality Date ANKLE SURGERY Right He has a titanium plate to the right ankle KNEE SURGERY Left ACL KNEE SURGERY Left removal of screw LAMINECTOMY Left 10/24/2020 LEFT BILATERAL L2-3-4-5 DECOMPRESSION performed by Opal Vigil MD at [facility] OR ORTHOPEDIC SURGERY Right removal of hardware ankle US PLACE URETAL STENT PERC PRE-EXIST TRACT S&I (HISTORICAL) Bilateral 04/14/2024 Dr. Patel/Bashir Current Medications: Current Facility-Administered Medications Medication Dose Route Frequency Provider Last Rate Last Admin acetaminophen (Tylenol) tablet 650 mg 650 mg Oral q6h PRN Narsimha Cassidy Kodakandla, MD Or acetaminophen (Tylenol) suppository 650 mg 650 mg Rectal q6h PRN Heydi Concepcion MD aspirin EC tablet 81 mg 81 mg Oral Daily Heydi Concepcion MD bisacodyl (Dulcolax) EC tablet 5 mg 5 mg Oral Daily PRN Heydi Concepcion MD calcium carbonate (Tums) chewable tablet 1,000 mg 1,000 mg Oral q8h PRN Heydi Concepcion MD cyclobenzaprine (Flexeril) tablet 10 mg 10 mg Oral TID PRN Heydi Concepcion MD dextrose 5 % infusion 100 mL/hr IntraVENous PRN Heydi Concepcion MD dextrose 50 % solution 12.5 g 12.5 g IntraVENous PRN Heydi Concepcion MD docusate sodium (Colace) capsule 100 mg 100 mg Oral BID Heydi Concepcion MD enoxaparin (Lovenox) syringe 40 mg 40 mg SubCUTAneous Daily Heydi Concepcion MD glucagon (human recombinant) injection 1 mg 1 mg IntraMUSCular PRN Heydi Concepcion MD glucose oral gel 15 g 15 g Oral PRN Heydi Concepcion MD HYDROmorphone (Dilaudid) tablet 4 mg 4 mg Oral q4h PRN Heydi Concepcion MD 4 mg at 05/18/24 0616 insulin glargine (Lantus) injection 45 Units 45 Units SubCUTAneous q AM Heydi Concepcion MD Insulin Lispro (Humalog) injection 0-12 Units 0-12 Units SubCUTAneous TID WC Heydi Concepcion MD And Insulin Lispro (Humalog) injection 0-12 Units 0-12 Units SubCUTAneous Nightly Heydi Concepcion MD mirtazapine (Remeron) tablet 7.5 mg 7.5 mg Oral Nightly Heydi Concepcion MD naloxone (Narcan) injection 0.4 mg 0.4 mg IntraVENous q5 min PRN Heydi Concepcion MD ondansetron ODT (Zofran-ODT) disintegrating tablet 4 mg 4 mg Oral q8h PRN Heydi Concepcion MD Or ondansetron (Zofran) injection 4 mg 4 mg IntraVENous q6h PRN Heydi Concepcion MD oxyCODONE ER (OxyCONTIN) 12 hr tablet 15 mg 15 mg Oral 2 times per day Heydi Concepcion MD piperacillin-tazobactam (Zosyn) IVPB 3,375 mg 3,375 mg IntraVENous q8h Heydi Concepcion MD 12.5 mL/hr at 05/18/24 0624 3,375 mg at 05/18/24 0624 polyethylene glycol (PEG) 3350 (Miralax) packet 17 g 17 g Oral Daily PRN Heydi Concepcion MD pregabalin (Lyrica) capsule 200 mg 200 mg Oral TID Heydi Cnocepcion MD sodium chloride 0.9 % infusion 100 mL/hr IntraVENous Continuous Heydi Concepcion MD 100 mL/hr at 05/18/24 0621 100 mL/hr at 05/18/24 0621 tamsulosin (Flomax) 24 hr capsule 0.4 mg 0.4 mg Oral Daily Heydi Concepcion MD therapeutic multivitamin-minerals (Theragran-M) tablet 1 tablet Oral Daily Heydi Concepcion MD Current Outpatient Medications Medication Sig Dispense Refill acetaminophen (Tylenol) 325 MG tablet Take 650 mg by mouth every 6 hours as needed. For elevated temp and/or pain. Do not exceed 3 grams in 24 hour period. acetic acid 0.25 % irrigation alogliptin (Nesina) 25 MG tablet daily. aspirin 81 MG EC tablet Take 81 mg by mouth daily. bisacodyl (Dulcolax) 5 MG EC tablet Take 5 mg by mouth Daily as needed for constipation. Do not crush, chew, or split. bisacodyl (Dulcolax) 5 mg split suppository Insert into the rectum Daily as needed. calcium carbonate (Tums) 500 MG chewable tablet 1,000 mg every 8 hours as needed for indigestion or heartburn. clotrimazole-betamethasone (Lotrisone) cream cyclobenzaprine (Flexeril) 10 MG tablet Take 10 mg by mouth 3 times daily as needed for muscle spasms. docusate sodium (Colace) 100 MG tablet Take 100 mg by mouth 2 times daily. ferrous sulfate 325 (65 Fe) MG tablet Take 325 mg by mouth daily (with breakfast). HYDROmorphone (Dilaudid) 4 MG tablet Take by mouth every 4 hours as needed for severe pain (7-10). For pain 3-10/10 Hypromellose (Pure & Gentle Lubricant) 0.3 % solution Administer 1 drop into affected eye(s) if needed. insulin glargine (Lantus) 100 UNIT/ML pen Inject 45 Units under the skin every morning. Insulin Lispro (Humalog) 100 UNIT/ML solution injection Inject 0-28 Units under the skin. 0-160=0 units; 161-200=14 units, 201-250=18 units, 251-300=20 units 301-350=22 units, 351-400=28 units, 401 or higher give 28 units and call physician. Magnesium Hydroxide (MILK OF MAGNESIA PO) Take 30 mL by mouth Daily as needed. mirtazapine (Remeron) 7.5 MG tablet Take 7.5 mg by mouth Nightly. Multiple Vitamin (multivitamin) capsule Take 1 capsule by mouth daily. naloxone (Narcan) 4 mg/0.1 mL nasal spray oxyCODONE ER (OxyCONTIN) 15 MG 12 hr tablet Do not crush, chew, or split. polyethylene glycol, PEG, 3350 (Miralax) 17 g packet Take 17 g by mouth in the morning and 17 g in the evening. potassium chloride CR (Klor-Con M20) 20 MEQ ER tablet 40 mEq daily. pregabalin (Lyrica) 200 MG capsule Take 1 capsule (200 mg) by mouth 3 times daily for 7 days. 21 capsule 0 sodium chloride 0.9 % irrigation solution Irrigate with as directed. 10 ml every 12 hours before and after medication administration tamsulosin (Flomax) 0.4 MG 24 hr capsule 0.4 mg daily. Allergies: No Known Allergies Social History: Social History Socioeconomic History Marital status: Spouse name: Not on file Number of children: Not on file Years of education: Not on file Highest education level: Not on file Occupational History Not on file Tobacco Use Smoking status: Every Day Current packs/day: 0.25 Average packs/day: 0.5 packs/day for 43.6 years (21.2 ttl pk-yrs) Types: Cigarettes Start date: 1977 Smokeless tobacco: Never Vaping Use Vaping status: Every Day Substances: Nicotine, Flavoring Substance and Sexual Activity Alcohol use: No Drug use: No Sexual activity: Not on file Other Topics Concern Not on file Social History Narrative Not on file Social Determinants of Health Financial Resource Strain: Low Risk (04/24/2023) Received from [facility], [facility] Overall Financial Resource Strain (CARDIA) Difficulty of Paying Living Expenses: Not hard at all Food Insecurity: No Food Insecurity (05/05/2024) Hunger Vital Sign Worried About Running Out of Food in the Last Year: Never true Ran Out of Food in the Last Year: Never true Transportation Needs: No Transportation Needs (05/05/2024) PRAPARE - Transportation Lack of Transportation (Medical): No Lack of Transportation (Non-Medical): No Physical Activity: Not on file Stress: Not on file Social Connections: Not on file Intimate Partner Violence: Not At Risk (05/05/2024) Humiliation, Afraid, Rape, and Kick questionnaire Fear of Current or Ex-Partner: No Emotionally Abused: No Physically Abused: No Sexually Abused: No Housing Stability: Low Risk (05/05/2024) Housing Stability Vital Sign Unable to Pay for Housing in the Last Year: No Number of Times Moved in the Last Year: 0 Homeless in the Last Year: No Family History: No family history on file. Review of Systems: Review of Systems Constitutional: Negative for chills, fatigue and fever. HENT: Negative for congestion, sinus pain, sore throat and trouble swallowing. Eyes: Negative for visual disturbance. Respiratory: Negative for cough, shortness of breath and wheezing. Cardiovascular: Negative for chest pain and palpitations. Gastrointestinal: Negative for abdominal distention, abdominal pain, diarrhea, nausea and vomiting. Endocrine: Negative. Genitourinary: Negative for dysuria, flank pain, frequency, hematuria and urgency. Musculoskeletal: Negative for arthralgias, joint swelling, myalgias and neck stiffness. Skin: Negative for color change, rash and wound. Allergic/Immunologic: Negative. Neurological: Negative for weakness, numbness and headaches. Psychiatric/Behavioral: Negative. Negative for confusion. All other systems reviewed and are negative. Vitals: Patient Vitals for the past 24 hrs: BP Temp Temp src Pulse Resp SpO2 Height Weight 05/18/24 0800 95/63 -- -- 70 16 99 % -- -- 05/18/24 0435 94/65 -- -- 69 18 98 % -- -- 05/18/24 0340 104/66 -- -- 68 18 -- -- -- 05/18/24 0126 95/61 -- -- 69 17 96 % 1.905 m (6' 3") 90.7 kg (200 lb) 05/17/24 2306 118/68 -- -- 70 18 -- -- -- 05/17/24 2034 123/84 36.4 C (97.5 F) Oral 78 12 96 % -- -- Physical Exam: Physical Exam Vitals and nursing note reviewed. Constitutional: General: He is not in acute distress. Appearance: Normal appearance. He is not toxic-appearing. Comments: Alert, interactive and conversant, NAD. HENT: Head: Normocephalic and atraumatic. Nose: Nose normal. Mouth/Throat: Mouth: Mucous membranes are moist. Pharynx: Oropharynx is clear. Eyes: Conjunctiva/sclera: Conjunctivae normal. Cardiovascular: Rate and Rhythm: Normal rate and regular rhythm. Heart sounds: No murmur heard. Pulmonary: Effort: Pulmonary effort is normal. No respiratory distress. Breath sounds: Normal breath sounds. No wheezing, rhonchi or rales. Abdominal: General: Bowel sounds are normal. There is no distension. Palpations: Abdomen is soft. Tenderness: There is no abdominal tenderness. There is no right CVA tenderness, left CVA tenderness or guarding. Genitourinary: Comments: + santana catheter with yellow urine and sediment Musculoskeletal: General: No swelling or tenderness. Normal range of motion. Cervical back: Neck supple. Comments: + healed posterior lumbar scar; no tenderness, erythema, or fluctuance. Skin: General: Skin is warm and dry. Findings: No erythema or rash. Comments: + small sacral decubitus without drainage or s/o inflammation Neurological: General: No focal deficit present. Mental Status: He is alert and oriented to person, place, and time. Cranial Nerves: No cranial nerve deficit. Motor: Weakness present. Comments: + paraplegia Psychiatric: Mood and Affect: Mood normal. Behavior: Behavior normal. Labs: Recent Labs 05/17/24205705/18/24 0620 NA 136 136 K 4.4 4.5 CL 109* 108* CO2 20* 22 BUN 12 13 CREATININE 0.68 0.64* GLUCOSE 172* 143* CALCIUM 8.7 8.6 Recent Labs 05/17/24205705/18/24 0620 WBC 3.5* 7.7 HGB 19.6* 12.5* HCT 60.0* 38.7* PLT 105* 222 LYMPHOPCT 26.9 28.0 MONOPCT 6.8 9.6 BASOPCT 0.8 0.8 NEUTROABS 2.0 4.3 Micro: 05/17- blood cx- 2/2 in process 05/16- blood cx- 1/1 GPC in clusters ([facility]) 05/05- tissue from bladder- C parapsilosis, K aerogenes, pseudomonas, skin gosia 04/16- blood cx- 2/2 negative 04/15- MRSA by PCR- MSSA 04/15- urine cx- 50-90k providencia stuartii 04/14- blood cx- 1/2 P mirablis, 11/06 P stuartii, M morganii Lines: PIV Radiography/Echo/Other: Reviewed- no new Antimicrobials,Start/End Dates: Pip/tazo: 05/17-present Impression: Positive blood cultures with GPC in one set UTI in setting of santana catheter s/p changed in ED Recent cystoscopy, B laser lithotripsy and ureteral stent exchange (05/06) Tissue cx + pseudomonas, klebsiella, and c parapsilosis hydronephrosis and obstruction due to bilateral ureteral calculus s/p cystoscopy, bilateral stent change and santana cath insertion on (04/14/24). Recent h/o proteus, providencia and morganella bacteremia d/t complicated UTI; treated H/o MRSA BSI c/b L2-L3 epidural abscess and R psoas abscess (01/2022); treated by [facility] ID Paraplegia w neurogenic bladder s/p chronic santana d/t #5 Plan: Stop pip/tazo. Start cefepime to cover tissue cultures from 05/06 Called micro lab at [place]--> blood cx + CoNS (only one set drawn). Hold off on vancomycin for now and follow-up repeat blood cx. If negative, likely CoNS is a contaminant. ID service will continue to follow; plan d/w Dr. Montano. Rosalinda Fox CNP [facility] - Infectious Diseases 12:28 PM 05/18/2024 Total time 75 minutes on this day of encounter includes counseling, coordinating plan of care, record and documentation review before and after visit including documentation and time not explicitly included on EMR time stamp for accounting for open encounter. [facility] 05-18-2024 Consult note Associated Order (s): IP CONSULT TO INFECTIOUS DISEASES Images from the original note were not included. [facility] - Infectious Diseases [facility] inpatient Consult Note Reason for Consult: Complicated UTI History of Present Illness: Anmol Reynolds is a 63 y/o male with PMHx of HTN, HLD, DM, BPH, nephrolithiasis, spinal stenosis s/p L2-3 spinal fusion (12/2021), 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 He required I&D x2 with KRIS (01/06/22) and T12-L5 posterior spinal instrumentation (01/14/22)--> followed by [facility] and treated with 6 weeks daptomycin with suppressive minocycline. Pt presented to [facility] ED on 05/17/2024 for evaluation of positive blood cultures. Pt was recently admitted to [facility] 04/14-04/20/2024 with proteus, providencia, and morganella bacteremia d/t complicated UTI. He underwent cystoscopy, bilateral stent change and santana catheter insertion (04/14) for B hydronephrosis and obstruction due to B ureteral calculus. He completed 2 weeks of IV Ertapenem through 04/30. On 05/06 he underwent cystoscopy, B laser lithotripsy and ureteral stent exchange. He had surveillance blood cultures collected on 05/16 growing GPC in clusters in one set. He was advised to go to ED for evaluation and IV antibiotics. Pt denies any symptoms of fevers, chills, sob, chest pain, cough, nausea, vomiting, abdominal pain or urinary complaints. He presented to ED afebrile and hemodynamically stable. Work up shows: WBC 3.5, LA 1.4, Scr 0.68. UA shows evidence of infection with >100 wbc and many bacteria in setting of santana catheter. Santana was exchanged in ED. Repeat blood cultures were drawn in ED. He received pip/tazo. ID consulted to assist with antimicrobial management. Past Medical History: Past Medical History: Diagnosis Date Abnormal posture Abscess, perineum Anemia BPH (benign prostatic hyperplasia) Chronic back pain Hematuria Hip sprain Hyperlipidemia Hypertension Major depressive disorder, single episode, unspecified MRSA (methicillin resistant staph aureus) culture positive spine 2021 Muscle wasting and atrophy, not elsewhere classified, left lower leg Muscle weakness (generalized) Neuropathy Obstructive and reflux uropathy, unspecified Osteoarthritis Other abnormalities of gait and mobility Other reduced mobility Paraplegia (HCC) Sciatica Spinal stenosis of lumbar region with neurogenic claudication Type 2 diabetes mellitus without complication (CMS/HCC) (HCC) Urinary calculus, unspecified UTI (urinary tract infection) Past Surgical History: Past Surgical History: Procedure Laterality Date ANKLE SURGERY Right He has a titanium plate to the right ankle KNEE SURGERY Left ACL KNEE SURGERY Left removal of screw LAMINECTOMY Left 10/24/2020 LEFT BILATERAL L2-3-4-5 DECOMPRESSION performed by Opal Vigil MD at [facility] OR ORTHOPEDIC SURGERY Right removal of hardware ankle US PLACE URETAL STENT PERC PRE-EXIST TRACT S&I (HISTORICAL) Bilateral 04/14/2024 Dr. Patel/Bashir Current Medications: Current Facility-Administered Medications Medication Dose Route Frequency Provider Last Rate Last Admin acetaminophen (Tylenol) tablet 650 mg 650 mg Oral q6h PRN Heydi Concepcion MD Or acetaminophen (Tylenol) suppository 650 mg 650 mg Rectal q6h PRN Heydi Concepcion MD aspirin EC tablet 81 mg 81 mg Oral Daily Heydi Concepcion MD bisacodyl (Dulcolax) EC tablet 5 mg 5 mg Oral Daily PRN Heydi Concepcion MD calcium carbonate (Tums) chewable tablet 1,000 mg 1,000 mg Oral q8h PRN Heydi Concepcion MD cyclobenzaprine (Flexeril) tablet 10 mg 10 mg Oral TID PRN Heydi Concepcion MD dextrose 5 % infusion 100 mL/hr IntraVENous PRN Heydi Concepcion MD dextrose 50 % solution 12.5 g 12.5 g IntraVENous PRN Heydi Concepcion MD docusate sodium (Colace) capsule 100 mg 100 mg Oral BID Heydi Concepcion MD enoxaparin (Lovenox) syringe 40 mg 40 mg SubCUTAneous Daily Heydi Concepcion MD glucagon (human recombinant) injection 1 mg 1 mg IntraMUSCular PRN Heydi Concepcion MD glucose oral gel 15 g 15 g Oral PRN Heydi Concepcion MD HYDROmorphone (Dilaudid) tablet 4 mg 4 mg Oral q4h PRN Heydi Concepcion MD 4 mg at 05/18/24 0616 insulin glargine (Lantus) injection 45 Units 45 Units SubCUTAneous q AM Heydi Concepcion MD Insulin Lispro (Humalog) injection 0-12 Units 0-12 Units SubCUTAneous TID WC Heydi Concepcion MD And Insulin Lispro (Humalog) injection 0-12 Units 0-12 Units SubCUTAneous Nightly Heydi Concepcion MD mirtazapine (Remeron) tablet 7.5 mg 7.5 mg Oral Nightly Heydi Concepcion MD naloxone (Narcan) injection 0.4 mg 0.4 mg IntraVENous q5 min PRN Heydi Concepcion MD ondansetron ODT (Zofran-ODT) disintegrating tablet 4 mg 4 mg Oral q8h PRN Heydi Concepcion MD Or ondansetron (Zofran) injection 4 mg 4 mg IntraVENous q6h PRN Heydi Concepcion MD oxyCODONE ER (OxyCONTIN) 12 hr tablet 15 mg 15 mg Oral 2 times per day Heydi Concepcion MD piperacillin-tazobactam (Zosyn) IVPB 3,375 mg 3,375 mg IntraVENous q8h Heydi Concepcion MD 12.5 mL/hr at 05/18/24 0624 3,375 mg at 05/18/24 0624 polyethylene glycol (PEG) 3350 (Miralax) packet 17 g 17 g Oral Daily PRN Heydi Concepcion MD pregabalin (Lyrica) capsule 200 mg 200 mg Oral TID Heydi Concepcion MD sodium chloride 0.9 % infusion 100 mL/hr IntraVENous Continuous Heydi Concepcion MD 100 mL/hr at 05/18/24 0621 100 mL/hr at 05/18/24 0621 tamsulosin (Flomax) 24 hr capsule 0.4 mg 0.4 mg Oral Daily Heydi Concepcion MD therapeutic multivitamin-minerals (Theragran-M) tablet 1 tablet Oral Daily Heydi Concepcion MD Current Outpatient Medications Medication Sig Dispense Refill acetaminophen (Tylenol) 325 MG tablet Take 650 mg by mouth every 6 hours as needed. For elevated temp and/or pain. Do not exceed 3 grams in 24 hour period. acetic acid 0.25 % irrigation alogliptin (Nesina) 25 MG tablet daily. aspirin 81 MG EC tablet Take 81 mg by mouth daily. bisacodyl (Dulcolax) 5 MG EC tablet Take 5 mg by mouth Daily as needed for constipation. Do not crush, chew, or split. bisacodyl (Dulcolax) 5 mg split suppository Insert into the rectum Daily as needed. calcium carbonate (Tums) 500 MG chewable tablet 1,000 mg every 8 hours as needed for indigestion or heartburn. clotrimazole-betamethasone (Lotrisone) cream cyclobenzaprine (Flexeril) 10 MG tablet Take 10 mg by mouth 3 times daily as needed for muscle spasms. docusate sodium (Colace) 100 MG tablet Take 100 mg by mouth 2 times daily. ferrous sulfate 325 (65 Fe) MG tablet Take 325 mg by mouth daily (with breakfast). HYDROmorphone (Dilaudid) 4 MG tablet Take by mouth every 4 hours as needed for severe pain (7-10). For pain 3-10/10 Hypromellose (Pure & Gentle Lubricant) 0.3 % solution Administer 1 drop into affected eye(s) if needed. insulin glargine (Lantus) 100 UNIT/ML pen Inject 45 Units under the skin every morning. Insulin Lispro (Humalog) 100 UNIT/ML solution injection Inject 0-28 Units under the skin. 0-160=0 units; 161-200=14 units, 201-250=18 units, 251-300=20 units 301-350=22 units, 351-400=28 units, 401 or higher give 28 units and call physician. Magnesium Hydroxide (MILK OF MAGNESIA PO) Take 30 mL by mouth Daily as needed. mirtazapine (Remeron) 7.5 MG tablet Take 7.5 mg by mouth Nightly. Multiple Vitamin (multivitamin) capsule Take 1 capsule by mouth daily. naloxone (Narcan) 4 mg/0.1 mL nasal spray oxyCODONE ER (OxyCONTIN) 15 MG 12 hr tablet Do not crush, chew, or split. polyethylene glycol, PEG, 3350 (Miralax) 17 g packet Take 17 g by mouth in the morning and 17 g in the evening. potassium chloride CR (Klor-Con M20) 20 MEQ ER tablet 40 mEq daily. pregabalin (Lyrica) 200 MG capsule Take 1 capsule (200 mg) by mouth 3 times daily for 7 days. 21 capsule 0 sodium chloride 0.9 % irrigation solution Irrigate with as directed. 10 ml every 12 hours before and after medication administration tamsulosin (Flomax) 0.4 MG 24 hr capsule 0.4 mg daily. Allergies: No Known Allergies Social History: Social History Socioeconomic History Marital status: Spouse name: Not on file Number of children: Not on file Years of education: Not on file Highest education level: Not on file Occupational History Not on file Tobacco Use Smoking status: Every Day Current packs/day: 0.25 Average packs/day: 0.5 packs/day for 43.6 years (21.2 ttl pk-yrs) Types: Cigarettes Start date: 1977 Smokeless tobacco: Never Vaping Use Vaping status: Every Day Substances: Nicotine, Flavoring Substance and Sexual Activity Alcohol use: No Drug use: No Sexual activity: Not on file Other Topics Concern Not on file Social History Narrative Not on file Social Determinants of Health Financial Resource Strain: Low Risk (04/24/2023) [facility] Overall Financial Resource Strain (CARDIA) Difficulty of Paying Living Expenses: Not hard at all Food Insecurity: No Food Insecurity (05/05/2024) Hunger Vital Sign Worried About Running Out of Food in the Last Year: Never true Ran Out of Food in the Last Year: Never true Transportation Needs: No Transportation Needs (05/05/2024) PRAPARE - Transportation Lack of Transportation (Medical): No Lack of Transportation (Non-Medical): No Physical Activity: Not on file Stress: Not on file Social Connections: Not on file Intimate Partner Violence: Not At Risk (05/05/2024) Humiliation, Afraid, Rape, and Kick questionnaire Fear of Current or Ex-Partner: No Emotionally Abused: No Physically Abused: No Sexually Abused: No Housing Stability: Low Risk (05/05/2024) Housing Stability Vital Sign Unable to Pay for Housing in the Last Year: No Number of Times Moved in the Last Year: 0 Homeless in the Last Year: No Family History: No family history on file. Review of Systems: Review of Systems Constitutional: Negative for chills, fatigue and fever. HENT: Negative for congestion, sinus pain, sore throat and trouble swallowing. Eyes: Negative for visual disturbance. Respiratory: Negative for cough, shortness of breath and wheezing. Cardiovascular: Negative for chest pain and palpitations. Gastrointestinal: Negative for abdominal distention, abdominal pain, diarrhea, nausea and vomiting. Endocrine: Negative. Genitourinary: Negative for dysuria, flank pain, frequency, hematuria and urgency. Musculoskeletal: Negative for arthralgias, joint swelling, myalgias and neck stiffness. Skin: Negative for color change, rash and wound. Allergic/Immunologic: Negative. Neurological: Negative for weakness, numbness and headaches. Psychiatric/Behavioral: Negative. Negative for confusion. All other systems reviewed and are negative. Vitals: Patient Vitals for the past 24 hrs: BP Temp Temp src Pulse Resp SpO2 Height Weight 05/18/24 0800 95/63 -- -- 70 16 99 % -- -- 05/18/24 0435 94/65 -- -- 69 18 98 % -- -- 05/18/24 0340 104/66 -- -- 68 18 -- -- -- 05/18/24 0126 95/61 -- -- 69 17 96 % 1.905 m (6' 3") 90.7 kg (200 lb) 05/17/24 2306 118/68 -- -- 70 18 -- -- -- 05/17/24 2034 123/84 36.4 C (97.5 F) Oral 78 12 96 % -- -- Physical Exam: Physical Exam Vitals and nursing note reviewed. Constitutional: General: He is not in acute distress. Appearance: Normal appearance. He is not toxic-appearing. Comments: Alert, interactive and conversant, NAD. HENT: Head: Normocephalic and atraumatic. Nose: Nose normal. Mouth/Throat: Mouth: Mucous membranes are moist. Pharynx: Oropharynx is clear. Eyes: Conjunctiva/sclera: Conjunctivae normal. Cardiovascular: Rate and Rhythm: Normal rate and regular rhythm. Heart sounds: No murmur heard. Pulmonary: Effort: Pulmonary effort is normal. No respiratory distress. Breath sounds: Normal breath sounds. No wheezing, rhonchi or rales. Abdominal: General: Bowel sounds are normal. There is no distension. Palpations: Abdomen is soft. Tenderness: There is no abdominal tenderness. There is no right CVA tenderness, left CVA tenderness or guarding. Genitourinary: Comments: + santana catheter with yellow urine and sediment Musculoskeletal: General: No swelling or tenderness. Normal range of motion. Cervical back: Neck supple. Comments: + healed posterior lumbar scar; no tenderness, erythema, or fluctuance. Skin: General: Skin is warm and dry. Findings: No erythema or rash. Comments: + small sacral decubitus without drainage or s/o inflammation Neurological: General: No focal deficit present. Mental Status: He is alert and oriented to person, place, and time. Cranial Nerves: No cranial nerve deficit. Motor: Weakness present. Comments: + paraplegia Psychiatric: Mood and Affect: Mood normal. Behavior: Behavior normal. Labs: Recent Labs 05/17/24205705/18/24 0620 NA 136 136 K 4.4 4.5 CL 109* 108* CO2 20* 22 BUN 12 13 CREATININE 0.68 0.64* GLUCOSE 172* 143* CALCIUM 8.7 8.6 Recent Labs 05/17/24205705/18/24 0620 WBC 3.5* 7.7 HGB 19.6* 12.5* HCT 60.0* 38.7* PLT 105* 222 LYMPHOPCT 26.9 28.0 MONOPCT 6.8 9.6 BASOPCT 0.8 0.8 NEUTROABS 2.0 4.3 Micro: 05/17- blood cx- 2/2 in process 05/16- blood cx- 1/ GPC in clusters ([facility]) 05/05- tissue from bladder- C parapsilosis, K aerogenes, pseudomonas, skin gosia 04/16- blood cx- 2/2 negative 04/15- MRSA by PCR- MSSA 04/15- urine cx- 50-90k providencia stuartii 04/14- blood cx- 1/ P mirablis, 11/06 P stuartii, M morganii Lines: PIV Radiography/Echo/Other: Reviewed- no new Antimicrobials,Start/End Dates: Pip/tazo: 05/17-present Impression: Positive blood cultures with GPC in one set UTI in setting of santana catheter s/p changed in ED Recent cystoscopy, B laser lithotripsy and ureteral stent exchange (05/06) Tissue cx + pseudomonas, klebsiella, and c parapsilosis hydronephrosis and obstruction due to bilateral ureteral calculus s/p cystoscopy, bilateral stent change and santana cath insertion on (04/14/24). Recent h/o proteus, providencia and morganella bacteremia d/t complicated UTI; treated H/o MRSA BSI c/b L2-L3 epidural abscess and R psoas abscess (01/2022); treated by [facility] ID Paraplegia w neurogenic bladder s/p chronic santana d/t #5 Plan: Stop pip/tazo. Start cefepime to cover tissue cultures from 05/06 Called micro lab at [place]--> blood cx + CoNS (only one set drawn). Hold off on vancomycin for now and follow-up repeat blood cx. If negative, likely CoNS is a contaminant. ID service will continue to follow; plan d/w Dr. Montano. Rosalinda Fox CNP [facility] - Infectious Diseases 12:28 PM 05/18/2024 Total time 75 minutes on this day of encounter includes counseling, coordinating plan of care, record and documentation review before and after visit including documentation and time not explicitly included on EMR time stamp for accounting for open encounter. documented in this encounter [facility] 05-18-2024 Note Hospitalist Progress Note 05/18/2024 Subjective: Admit Date: 05/17/2024 PCP: AMBROSIO MONROY DO Room#: 35/35 Brief Hospital course: Anmol is a 63 y.o. male with past medical history below who presented to ED for evaluation of positive blood cultures. Patient is paraplegic due to spinal surgery that was done 2 years ago patient was evaluated and admitted on 04/14/2024 was noted to be in septic shock complicated UTI with bacteremia. Blood cultures were positive at that time for Proteus, providencia, morganella patient was treated by ID with PICC line that was placed on 04/20/2024 with ertapenem. Patient had repeat blood cultures that were drawn at facility on 05/13/2024, results are noted to be positive for gram-positive cocci in clusters. Dr. Moyer of infectious disease was consulted at that time and recommended patient come to the hospital for IV antibiotics. Admitted for further evaluation and management. Interval History: 05/18/2024-No overnight issues. Patient is seen and examined Resting in his bed comfortably without in any acute distress, denies any new acute complaints Case and plan discussed with patient and bedside nurse. All questions answered. Past Medical History: Past Medical History: Diagnosis Date Abnormal posture Abscess, perineum Anemia BPH (benign prostatic hyperplasia) Chronic back pain Hematuria Hip sprain Hyperlipidemia Hypertension Major depressive disorder, single episode, unspecified MRSA (methicillin resistant staph aureus) culture positive spine 2021 Muscle wasting and atrophy, not elsewhere classified, left lower leg Muscle weakness (generalized) Neuropathy Obstructive and reflux uropathy, unspecified Osteoarthritis Other abnormalities of gait and mobility Other reduced mobility Paraplegia (HCC) Sciatica Spinal stenosis of lumbar region with neurogenic claudication Type 2 diabetes mellitus without complication (CMS/HCC) (HCC) Urinary calculus, unspecified UTI (urinary tract infection) Adult diet Regular 24HR INTAKE/OUTPUT: No intake or output data in the 24 hours ending 05/18/24 0817 LABS: CBC: Recent Labs 05/17/24205705/18/24 0620 WBC 3.5* 7.7 RBC 6.51* 4.13* HGB 19.6* 12.5* HCT 60.0* 38.7* MCV 92.2 93.7 RDW 16.8* 15.6* PLT 105* 222 BMP: Recent Labs 05/17/24205705/18/24 0620 NA 136 136 K 4.4 4.5 CL 109* 108* CO2 20* 22 BUN 12 13 CREATININE 0.68 0.64* GLUCOSE 172* 143* CALCIUM 8.7 8.6 ANIONGAP 6 5 LIVER PROFILE:No results for input(s): "AST", "ALT", "BILITOT", "ALKPHOS", "PROT" in the last 72 hours. No lab exists for component: LABALBU PT/INR: No results for input(s): "PROTIME", "INR" in the last 72 hours. CARDIAC ENZYMES: No results for input(s): "TROPONINI" in the last 72 hours. Procalcitonin: No results found for: "PROCAL" COVID-19 PCR: No results for input(s): "COVID19" in the last 72 hours. Objective: Vitals: BP 94/65 (Patient Position: Lying) Pulse 69 Temp 36.4 ?C (97.5 ?F) (Oral) Resp 18 Ht 6' 3" (1.905 m) Wt 200 lb (90.7 kg) SpO2 98% BMI 25.00 kg/m? Pulse Ox: SpO2 Av.7 % Min: 96 % Max: 98 % Supplemental O2: Physical Exam HENT: Head: Normocephalic and atraumatic. Mouth/Throat: Mouth: Mucous membranes are moist. Cardiovascular: Rate and Rhythm: Normal rate and regular rhythm. Pulmonary: Effort: Pulmonary effort is normal. Abdominal: Palpations: Abdomen is soft. Skin: General: Skin is warm and dry. Neurological: Mental Status: He is alert and oriented to person, place, and time. Comments: Paraplegia Medications: Scheduled PRN aspirin, 81 mg, Oral, Daily docusate sodium, 100 mg, Oral, BID enoxaparin, 40 mg, SubCUTAneous, Daily insulin glargine, 45 Units, SubCUTAneous, q AM insulin lispro, 0-12 Units, SubCUTAneous, TID WC And insulin lispro, 0-12 Units, SubCUTAneous, Nightly mirtazapine, 7.5 mg, Oral, Nightly oxyCODONE ER, 15 mg, Oral, 2 times per day piperacillin-tazobactam, 3,375 mg, IntraVENous, q8h pregabalin, 200 mg, Oral, TID tamsulosin, 0.4 mg, Oral, Daily therapeutic multivitamin-minerals, 1 tablet, Oral, Daily PRN medications: acetaminophen OR acetaminophen, bisacodyl, calcium carbonate, cyclobenzaprine, dextrose, dextrose, glucagon (rDNA), glucose, HYDROmorphone, naloxone, ondansetron ODT OR ondansetron, polyethylene glycol (PEG) 3350 Continuous sodium chloride, 100 mL/hr, Last Rate: 100 mL/hr (05/18/24 0621) Assessment Data: (CAT1) Reviewed 2 notes from different specialty or health system (each=1). (CAT1) Reviewed 3 or more labs/studies ordered by another provider not previously counted (each=1, panels count as 1). (CAT1) Ordered 3 or more new labs and/or studies (each=1, panels count as 1). (LOW: 2x CAT1 or independent historian MOD: 3x CAT1 or 1x CAT3 EXTENSIVE: 3x CAT1 and 1x CAT3) Acute, acute on chronic, unstable/uncontrolled chronic problems/diagnoses (more content not included)... [facility] 05-18-2024 Emergency department Note Pt refused BG check/meds at this time stating "I just want some sleep." Hospital bed ordered for pt. Meds deferred at this time. Ella Zavala RN 05/18/24 08 [facility] 05-18-2024 Emergency department Note Pt had a bowel movement, this RN & another RN cleaned pt. Carmen Crews RN 05/18/24 0454 [facility] 05-18-2024 Emergency department Note Pt transport has been requested Carmen Crews RN 05/18/24 0433 [facility] [facility] 05[facility] Emergency department Note Pt is asleep, w/ unlabored breathing Carmen Crews RN 05/18/24 0155 Carmen Crews RN 05/18/24 0156 [facility] 05-17-2024 History and physical note Attending History and Physical Admit Date: 05/17/2024 PCP: AMBROSIO MONROY DO CHIEF COMPLAINT: Chief Complaint Patient presents with Other Abnormal labs, blood cultures has been done to pt in facility, gram + cocci. Had back sx 2 yrs ago that resulted to paraplegia, pt is paralyze from waist down. Afebrile, aox4 HISTORY OF PRESENT ILLNESS: Anmol is a 63 y.o. male with past medical history below who presented to ED for evaluation of positive blood cultures. Patient is paraplegic due to spinal surgery that was done 2 years ago patient was evaluated and admitted on 04/14/2024 was noted to be in septic shock complicated UTI with bacteremia. Blood cultures were positive at that time for Proteus, providencia, morganella patient was treated by ID with PICC line that was placed on 04/20/2024 with ertapenem. Patient had repeat blood cultures that were drawn at facility yesterday 05/13/2024. Pulmonary results are noted to be positive for gram-positive cocci in clusters. Dr. Moyer of infectious disease was consulted at that time and recommended patient come to the hospital for IV antibiotics. He currently denied active complaints. Denies subjective fever, chills, nausea, vomiting, cough, sob, abd pain, or headache. Will admit for further evaluation and management. Past Medical History: Past Medical History: Diagnosis Date Abnormal posture Abscess, perineum Anemia BPH (benign prostatic hyperplasia) Chronic back pain Hematuria Hip sprain Hyperlipidemia Hypertension Major depressive disorder, single episode, unspecified MRSA (methicillin resistant staph aureus) culture positive spine 2021 Muscle wasting and atrophy, not elsewhere classified, left lower leg Muscle weakness (generalized) Neuropathy Obstructive and reflux uropathy, unspecified Osteoarthritis Other abnormalities of gait and mobility Other reduced mobility Paraplegia (HCC) Sciatica Spinal stenosis of lumbar region with neurogenic claudication Type 2 diabetes mellitus without complication (CMS/HCC) (HCC) Urinary calculus, unspecified UTI (urinary tract infection) Past Surgical History: Past Surgical History: Procedure Laterality Date ANKLE SURGERY Right He has a titanium plate to the right ankle KNEE SURGERY Left ACL KNEE SURGERY Left removal of screw LAMINECTOMY Left 10/24/2020 LEFT BILATERAL L2-3-4-5 DECOMPRESSION performed by Opal Vigil MD at [facility] OR ORTHOPEDIC SURGERY Right removal of hardware ankle US PLACE URETAL STENT PERC PRE-EXIST TRACT S&I (HISTORICAL) Bilateral 04/14/2024 Dr. Patel/Bashir Social History: Social History Socioeconomic History Marital status: Spouse name: Not on file Number of children: Not on file Years of education: Not on file Highest education level: Not on file Occupational History Not on file Tobacco Use Smoking status: Every Day Current packs/day: 0.25 Average packs/day: 0.5 packs/day for 43.6 years (21.2 ttl pk-yrs) Types: Cigarettes Start date: 1977 Smokeless tobacco: Never Vaping Use Vaping status: Every Day Substances: Nicotine, Flavoring Substance and Sexual Activity Alcohol use: No Drug use: No Sexual activity: Not on file Other Topics Concern Not on file Social History Narrative Not on file Social Determinants of Health Financial Resource Strain: Low Risk (04/24/2023) Received from [facility], [facility] Overall Financial Resource Strain (CARDIA) Difficulty of Paying Living Expenses: Not hard at all Food Insecurity: No Food Insecurity (05/05/2024) Hunger Vital Sign Worried About Running Out of Food in the Last Year: Never true Ran Out of Food in the Last Year: Never true Transportation Needs: No Transportation Needs (05/05/2024) PRAPARE - Transportation Lack of Transportation (Medical): No Lack of Transportation (Non-Medical): No Physical Activity: Not on file Stress: Not on file Social Connections: Not on file Intimate Partner Violence: Not At Risk (05/05/2024) Humiliation, Afraid, Rape, and Kick questionnaire Fear of Current or Ex-Partner: No Emotionally Abused: No Physically Abused: No Sexually Abused: No Housing Stability: Low Risk (05/05/2024) Housing Stability Vital Sign Unable to Pay for Housing in the Last Year: No Number of Times Moved in the Last Year: 0 Homeless in the Last Year: No Family History: No family history on file. Medications Prior to Admission: No current facility-administered medications on file prior to encounter. Current Outpatient Medications on File Prior to Encounter Medication Sig Dispense Refill acetaminophen (Tylenol) 325 MG tablet Take 650 mg by mouth every 6 hours as needed. For elevated temp and/or pain. Do not exceed 3 grams in 24 hour period. acetic acid 0.25 % irrigation alogliptin (Nesina) 25 MG tablet daily. aspirin 81 MG EC tablet Take 81 mg by mouth daily. bisacodyl (Dulcolax) 5 MG EC tablet Take 5 mg by mouth Daily as needed for constipation. Do not crush, chew, or split. bisacodyl (Dulcolax) 5 mg split suppository Insert into the rectum Daily as needed. calcium carbonate (Tums) 500 MG chewable tablet 1,000 mg every 8 hours as needed for indigestion or heartburn. clotrimazole-betamethasone (Lotrisone) cream cyclobenzaprine (Flexeril) 10 MG tablet Take 10 mg by mouth 3 times daily as needed for muscle spasms. docusate sodium (Colace) 100 MG tablet Take 100 mg by mouth 2 times daily. ferrous sulfate 325 (65 Fe) MG tablet Take 325 mg by mouth daily (with breakfast). HYDROmorphone (Dilaudid) 4 MG tablet Take by mouth every 4 hours as needed for severe pain (7-10). For pain 3-10/10 Hypromellose (Pure & Gentle Lubricant) 0.3 % solution Administer 1 drop into affected eye(s) if needed. insulin glargine (Lantus) 100 UNIT/ML pen Inject 45 Units under the skin every morning. Insulin Lispro (Humalog) 100 UNIT/ML solution injection Inject 0-28 Units under the skin. 0-160=0 units; 161-200=14 units, 201-250=18 units, 251-300=20 units 301-350=22 units, 351-400=28 units, 401 or higher give 28 units and call physician. Magnesium Hydroxide (MILK OF MAGNESIA PO) Take 30 mL by mouth Daily as needed. mirtazapine (Remeron) 7.5 MG tablet Take 7.5 mg by mouth Nightly. Multiple Vitamin (multivitamin) capsule Take 1 capsule by mouth daily. naloxone (Narcan) 4 mg/0.1 mL nasal spray oxyCODONE ER (OxyCONTIN) 15 MG 12 hr tablet Do not crush, chew, or split. polyethylene glycol, PEG, 3350 (Miralax) 17 g packet Take 17 g by mouth in the morning and 17 g in the evening. potassium chloride CR (Klor-Con M20) 20 MEQ ER tablet 40 mEq daily. pregabalin (Lyrica) 200 MG capsule Take 1 capsule (200 mg) by mouth 3 times daily for 7 days. 21 capsule 0 sodium chloride 0.9 % irrigation solution Irrigate with as directed. 10 ml every 12 hours before and after medication administration tamsulosin (Flomax) 0.4 MG 24 hr capsule 0.4 mg daily. Allergies: No Known Allergies REVIEW OF SYSTEMS: As per HPI Vitals: BP 118/68 (Patient Position: Lying) Pulse 70 Temp 36.4 C (97.5 F) (Oral) Resp 18 SpO2 96% BMI Classification: Pulse Ox: SpO2 Av % Min: 96 % Max: 96 % Supplemental O2: PHYSICAL EXAM: Physical Exam HEENT: JOJO, EOMI Neck; supple, nontender Chest: BLAE, clear CVS: S1+, S2+, no m/r/g Abdomen: soft, nontender, BS+ LINUX ADMIN ENGINEER: Awake and alert Ext: pulse 2+ DATA: CBC: Recent Labs 05/17/242057 WBC 3.5* RBC 6.51* HGB 19.6* HCT 60.0* MCV 92.2 RDW 16.8* PLT 105* BMP: Recent Labs 05/17/242057 NA 136 K 4.4 CL 109* CO2 20* BUN 12 CREATININE 0.68 GLUCOSE 172* CALCIUM 8.7 ANIONGAP 6 LIVER PROFILE:No results for input(s): "AST", "ALT", "BILITOT", "ALKPHOS", "PROT" in the last 72 hours. No lab exists for component: LABALBU PT/INR: No results for input(s): "PROTIME", "INR" in the last 72 hours. CARDIAC ENZYMES: No results for input(s): "TROPONINI" in the last 72 hours. Procalcitonin: No results found for: "PROCAL" Urine Culture: Results for orders placed or performed during the hospital encounter of 04/14/24 Urine culture Specimen: Urine, Clean Catch Result Value Ref Range Urine Culture Normal urogenital gosia present Urine Culture 50,000-90,000 CFU/mL Providencia stuartii (A) Susceptibility Providencia stuartii - BROTH MICRODILUTION Amikacin <=2 Susceptible ug/ml Ampicillin >=32 Resistant ug/ml Ampicillin / Sulbactam 16 Intermediate ug/ml Aztreonam <=1 Susceptible ug/ml Cefazolin >=64 Resistant ug/ml Cefepime <=1 Susceptible ug/ml Ceftriaxone <=1 Susceptible ug/ml Ciprofloxacin >=4 Resistant ug/ml Gentamicin Resistant Meropenem <=0.25 Susceptible ug/ml Nitrofurantoin 128 Resistant ug/ml Piperacillin / Tazobactam <=4 Susceptible ug/ml Trimethoprim / Sulfamethoxazole <=20 Susceptible ug/ml COVID-19 PCR: No results for input(s): "COVID19" in the last 72 hours. I reviewed: [x] laboratory results [x] radiographic results At the time of today's encounter. Pt was advised of the results. Data: (LOW: 2x CAT1 or independent historian MOD: 3x CAT1 or 1x CAT3 EXTENSIVE: 3x CAT1 and 1x CAT3) Assessment Discussed management with the ED provider and agree with hospitalization. Acute, acute on chronic, unstable/uncontrolled chronic problems/diagnoses: # possible uti catheter associated # urinary obstruction with bilateral calculi and bilateral hydronephrosis, s/p bilateral ureteral stent placement on 04/20/24 - santana replaced - urine culture - blood cultures - on zosyn - id consult Stable chronic problems affecting care, new non-acute diagnoses: Past Medical History: Diagnosis Date Abnormal posture Abscess, perineum Anemia BPH (benign prostatic hyperplasia) Chronic back pain Hematuria Hip sprain Hyperlipidemia Hypertension Major depressive disorder, single episode, unspecified MRSA (methicillin resistant staph aureus) culture positive spine 2021 Muscle wasting and atrophy, not elsewhere classified, left lower leg Muscle weakness (generalized) Neuropathy Obstructive and reflux uropathy, unspecified Osteoarthritis Other abnormalities of gait and mobility Other reduced mobility Paraplegia (HCC) Sciatica Spinal stenosis of lumbar region with neurogenic claudication Type 2 diabetes mellitus without complication (CMS/HCC) (HCC) Urinary calculus, unspecified UTI (urinary tract infection) Plan As a result of the above findings & factors, the following mgmt was pursued: - am labs, replace lytes prn - PT/OT/CM/SW - delirium precautions: increase activity - DVT prophylaxis: enoxaparin and encourage ambulation Advance Directive: Prior Anticipated Discharge - Date - tbd - Location - Skilled Facility - Pending the following - clinical course Total time spent (which include face to face and non face to face encounters) : 56 minutes. Extended Emergency Contact Information Primary Emergency Contact: GailRonald Mobile Relation: Sibling Secondary Emergency Contact: SUMI REYNOLDS Mobile Relation: Daughter [employer] Anmol Reynolds : 1960 Primary Care Physician: AMBROSIO MONROY DO The patient and/or family/surrogate voluntarily agreed to participate in ACP services. Patient s cognitive capacity: yes Code Status: [x] [FULL CODE - Continue all advanced life support: CPR,intubation,invasive procedures] [_] [DNR-CCA - DO NOT do CPR, intubation] [_] [DNR-SUPPORT TEAM ASSOC - Comfort care only] [_] DNR form [was/was not] signed Summary of discussion: The patient health care POA/ surrogate is the following: none [Condition that instigated the ACP on this DOS, relevant PMH, functional status, goals of care, and whom this was discussed with including names and relationship to the patient, and any relevant advance care documentation discussion] I answered all the patient/family questions that I could within the range and scope of the current medical situation. We discussed the medical conditions, risks, benefits, outcomes, and goals of care at this time for the patient's medical issues at hand in the face of the patient's chronic issues and current presentation. Total time spent: 2 minutes were spent discussing the patient's resuscitation status, advance care planning, and end of life care, with patient and/or family/surrogate. Heydi Concepcion MD Division of Hospitalist Medicine [facility] Work Phone: 05-17-2024 History and physical note Attending History and Physical Admit Date: 05/17/2024 PCP: AMBROSIO MONROY DO CHIEF COMPLAINT: Chief Complaint Patient presents with Other Abnormal labs, blood cultures has been done to pt in facility, gram + cocci. Had back sx 2 yrs ago that resulted to paraplegia, pt is paralyze from waist down. Afebrile, aox4 HISTORY OF PRESENT ILLNESS: Anmol is a 63 y.o. male with past medical history below who presented to ED for evaluation of positive blood cultures. Patient is paraplegic due to spinal surgery that was done 2 years ago patient was evaluated and admitted on 04/14/2024 was noted to be in septic shock complicated UTI with bacteremia. Blood cultures were positive at that time for Proteus, providencia, morganella patient was treated by ID with PICC line that was placed on 04/20/2024 with ertapenem. Patient had repeat blood cultures that were drawn at facility yesterday 05/13/2024. Pulmonary results are noted to be positive for gram-positive cocci in clusters. Dr. Moyer of infectious disease was consulted at that time and recommended patient come to the hospital for IV antibiotics. He currently denied active complaints. Denies subjective fever, chills, nausea, vomiting, cough, sob, abd pain, or headache. Will admit for further evaluation and management. Past Medical History: Past Medical History: Diagnosis Date Abnormal posture Abscess, perineum Anemia BPH (benign prostatic hyperplasia) Chronic back pain Hematuria Hip sprain Hyperlipidemia Hypertension Major depressive disorder, single episode, unspecified MRSA (methicillin resistant staph aureus) culture positive spine 2021 Muscle wasting and atrophy, not elsewhere classified, left lower leg Muscle weakness (generalized) Neuropathy Obstructive and reflux uropathy, unspecified Osteoarthritis Other abnormalities of gait and mobility Other reduced mobility Paraplegia (HCC) Sciatica Spinal stenosis of lumbar region with neurogenic claudication Type 2 diabetes mellitus without complication (CMS/HCC) (HCC) Urinary calculus, unspecified UTI (urinary tract infection) Past Surgical History: Past Surgical History: Procedure Laterality Date ANKLE SURGERY Right He has a titanium plate to the right ankle KNEE SURGERY Left ACL KNEE SURGERY Left removal of screw LAMINECTOMY Left 10/24/2020 LEFT BILATERAL L2-3-4-5 DECOMPRESSION performed by Opal Vigil MD at [facility] OR ORTHOPEDIC SURGERY Right removal of hardware ankle US PLACE URETAL STENT PERC PRE-EXIST TRACT S&I (HISTORICAL) Bilateral 04/14/2024 Dr. Patel/Bashir Social History: Social History Socioeconomic History Marital status: Spouse name: Not on file Number of children: Not on file Years of education: Not on file Highest education level: Not on file Occupational History Not on file Tobacco Use Smoking status: Every Day Current packs/day: 0.25 Average packs/day: 0.5 packs/day for 43.6 years (21.2 ttl pk-yrs) Types: Cigarettes Start date: 1977 Smokeless tobacco: Never Vaping Use Vaping status: Every Day Substances: Nicotine, Flavoring Substance and Sexual Activity Alcohol use: No Drug use: No Sexual activity: Not on file Other Topics Concern Not on file Social History Narrative Not on file Social Determinants of Health Financial Resource Strain: Low Risk (04/24/2023) Received [facility], [facility] Overall Financial Resource Strain (CARDIA) Difficulty of Paying Living Expenses: Not hard at all Food Insecurity: No Food Insecurity (05/05/2024) Hunger Vital Sign Worried About Running Out of Food in the Last Year: Never true Ran Out of Food in the Last Year: Never true Transportation Needs: No Transportation Needs (05/05/2024) PRAPARE - Transportation Lack of Transportation (Medical): No Lack of Transportation (Non-Medical): No Physical Activity: Not on file Stress: Not on file Social Connections: Not on file Intimate Partner Violence: Not At Risk (05/05/2024) Humiliation, Afraid, Rape, and Kick questionnaire Fear of Current or Ex-Partner: No Emotionally Abused: No Physically Abused: No Sexually Abused: No Housing Stability: Low Risk (05/05/2024) Housing Stability Vital Sign Unable to Pay for Housing in the Last Year: No Number of Times Moved in the Last Year: 0 Homeless in the Last Year: No Family History: No family history on file. Medications Prior to Admission: No current facility-administered medications on file prior to encounter. Current Outpatient Medications on File Prior to Encounter Medication Sig Dispense Refill acetaminophen (Tylenol) 325 MG tablet Take 650 mg by mouth every 6 hours as needed. For elevated temp and/or pain. Do not exceed 3 grams in 24 hour period. acetic acid 0.25 % irrigation alogliptin (Nesina) 25 MG tablet daily. aspirin 81 MG EC tablet Take 81 mg by mouth daily. bisacodyl (Dulcolax) 5 MG EC tablet Take 5 mg by mouth Daily as needed for constipation. Do not crush, chew, or split. bisacodyl (Dulcolax) 5 mg split suppository Insert into the rectum Daily as needed. calcium carbonate (Tums) 500 MG chewable tablet 1,000 mg every 8 hours as needed for indigestion or heartburn. clotrimazole-betamethasone (Lotrisone) cream cyclobenzaprine (Flexeril) 10 MG tablet Take 10 mg by mouth 3 times daily as needed for muscle spasms. docusate sodium (Colace) 100 MG tablet Take 100 mg by mouth 2 times daily. ferrous sulfate 325 (65 Fe) MG tablet Take 325 mg by mouth daily (with breakfast). HYDROmorphone (Dilaudid) 4 MG tablet Take by mouth every 4 hours as needed for severe pain (7-10). For pain 3-10/10 Hypromellose (Pure & Gentle Lubricant) 0.3 % solution Administer 1 drop into affected eye(s) if needed. insulin glargine (Lantus) 100 UNIT/ML pen Inject 45 Units under the skin every morning. Insulin Lispro (Humalog) 100 UNIT/ML solution injection Inject 0-28 Units under the skin. 0-160=0 units; 161-200=14 units, 201-250=18 units, 251-300=20 units 301-350=22 units, 351-400=28 units, 401 or higher give 28 units and call physician. Magnesium Hydroxide (MILK OF MAGNESIA PO) Take 30 mL by mouth Daily as needed. mirtazapine (Remeron) 7.5 MG tablet Take 7.5 mg by mouth Nightly. Multiple Vitamin (multivitamin) capsule Take 1 capsule by mouth daily. naloxone (Narcan) 4 mg/0.1 mL nasal spray oxyCODONE ER (OxyCONTIN) 15 MG 12 hr tablet Do not crush, chew, or split. polyethylene glycol, PEG, 3350 (Miralax) 17 g packet Take 17 g by mouth in the morning and 17 g in the evening. potassium chloride CR (Klor-Con M20) 20 MEQ ER tablet 40 mEq daily. pregabalin (Lyrica) 200 MG capsule Take 1 capsule (200 mg) by mouth 3 times daily for 7 days. 21 capsule 0 sodium chloride 0.9 % irrigation solution Irrigate with as directed. 10 ml every 12 hours before and after medication administration tamsulosin (Flomax) 0.4 MG 24 hr capsule 0.4 mg daily. Allergies: No Known Allergies REVIEW OF SYSTEMS: As per HPI Vitals: BP 118/68 (Patient Position: Lying) Pulse 70 Temp 36.4 C (97.5 F) (Oral) Resp 18 SpO2 96% BMI Classification: Pulse Ox: SpO2 Av % Min: 96 % Max: 96 % Supplemental O2: PHYSICAL EXAM: Physical Exam HEENT: JOJO, EOMI Neck; supple, nontender Chest: BLAE, clear CVS: S1+, S2+, no m/r/g Abdomen: soft, nontender, BS+ LINUX ADMIN ENGINEER: Awake and alert Ext: pulse 2+ DATA: CBC: Recent Labs 05/17/242057 WBC 3.5* RBC 6.51* HGB 19.6* HCT 60.0* MCV 92.2 RDW 16.8* PLT 105* BMP: Recent Labs 05/17/242057 NA 136 K 4.4 CL 109* CO2 20* BUN 12 CREATININE 0.68 GLUCOSE 172* CALCIUM 8.7 ANIONGAP 6 LIVER PROFILE:No results for input(s): "AST", "ALT", "BILITOT", "ALKPHOS", "PROT" in the last 72 hours. No lab exists for component: LABALBU PT/INR: No results for input(s): "PROTIME", "INR" in the last 72 hours. CARDIAC ENZYMES: No results for input(s): "TROPONINI" in the last 72 hours. Procalcitonin: No results found for: "PROCAL" Urine Culture: Results for orders placed or performed during the hospital encounter of 04/14/24 Urine culture Specimen: Urine, Clean Catch Result Value Ref Range Urine Culture Normal urogenital gosia present Urine Culture 50,000-90,000 CFU/mL Providencia stuartii (A) Susceptibility Providencia stuartii - BROTH MICRODILUTION Amikacin <=2 Susceptible ug/ml Ampicillin >=32 Resistant ug/ml Ampicillin / Sulbactam 16 Intermediate ug/ml Aztreonam <=1 Susceptible ug/ml Cefazolin >=64 Resistant ug/ml Cefepime <=1 Susceptible ug/ml Ceftriaxone <=1 Susceptible ug/ml Ciprofloxacin >=4 Resistant ug/ml Gentamicin Resistant Meropenem <=0.25 Susceptible ug/ml Nitrofurantoin 128 Resistant ug/ml Piperacillin / Tazobactam <=4 Susceptible ug/ml Trimethoprim / Sulfamethoxazole <=20 Susceptible ug/ml COVID-19 PCR: No results for input(s): "COVID19" in the last 72 hours. I reviewed: [x] laboratory results [x] radiographic results At the time of today's encounter. Pt was advised of the results. Data: (LOW: 2x CAT1 or independent historian MOD: 3x CAT1 or 1x CAT3 EXTENSIVE: 3x CAT1 and 1x CAT3) Assessment Discussed management with the ED provider and agree with hospitalization. Acute, acute on chronic, unstable/uncontrolled chronic problems/diagnoses: # possible uti catheter associated # urinary obstruction with bilateral calculi and bilateral hydronephrosis, s/p bilateral ureteral stent placement on 04/20/24 - santana replaced - urine culture - blood cultures - on zosyn - id consult Stable chronic problems affecting care, new non-acute diagnoses: Past Medical History: Diagnosis Date Abnormal posture Abscess, perineum Anemia BPH (benign prostatic hyperplasia) Chronic back pain Hematuria Hip sprain Hyperlipidemia Hypertension Major depressive disorder, single episode, unspecified MRSA (methicillin resistant staph aureus) culture positive spine 2021 Muscle wasting and atrophy, not elsewhere classified, left lower leg Muscle weakness (generalized) Neuropathy Obstructive and reflux uropathy, unspecified Osteoarthritis Other abnormalities of gait and mobility Other reduced mobility Paraplegia (HCC) Sciatica Spinal stenosis of lumbar region with neurogenic claudication Type 2 diabetes mellitus without complication (CMS/HCC) (HCC) Urinary calculus, unspecified UTI (urinary tract infection) Plan As a result of the above findings & factors, the following mgmt was pursued: - am labs, replace lytes prn - PT/OT/CM/SW - delirium precautions: increase activity - DVT prophylaxis: enoxaparin and encourage ambulation Advance Directive: Prior Anticipated Discharge - Date - tbd - Location - Skilled Facility - Pending the following - clinical course Total time spent (which include face to face and non face to face encounters) : 56 minutes. Extended Emergency Contact Information Primary Emergency Contact: Ronlad Reynolds Mobile Relation: Sibling Secondary Emergency Contact: SUMI REYNOLDS Mobile Relation: Daughter [employer] Anmol Reynolds : 1960 Primary Care Physician: AMBROSIO MONROY DO The patient and/or family/surrogate voluntarily agreed to participate in ACP services. Patient s cognitive capacity: yes Code Status: [x] [FULL CODE - Continue all advanced life support: CPR,intubation,invasive procedures] [_] [DNR-CCA - DO NOT do CPR, intubation] [_] [DNR-SUPPORT TEAM ASSOC - Comfort care only] [_] DNR form [was/was not] signed Summary of discussion: The patient health care POA/ surrogate is the following: none [Condition that instigated the ACP on this DOS, relevant PMH, functional status, goals of care, and whom this was discussed with including names and relationship to the patient, and any relevant advance care documentation discussion] I answered all the patient/family questions that I could within the range and scope of the current medical situation. We discussed the medical conditions, risks, benefits, outcomes, and goals of care at this time for the patient's medical issues at hand in the face of the patient's chronic issues and current presentation. Total time spent: 2 minutes were spent discussing the patient's resuscitation status, advance care planning, and end of life care, with patient and/or family/surrogate. Heydi Concepcion MD Division of Hospitalist Medicine [facility] documented in this encounter [facility] 05-17-2024 Note Attending History an d Physical Admit Date: 05/17/2024 PCP: AMBROSIO MONROY DO CHIEF COMPLAINT: Chief Complaint Patient presents with Other Abnormal labs, blood cultures has been done to pt in facility, gram + cocci. Had back sx 2 yrs ago that resulted to paraplegia, pt is paralyze from waist down. Afebrile, aox4 HISTORY OF PRESENT ILLNESS: Anmol is a 63 y.o. male with past medical history below who presented to ED for evaluation of positive blood cultures. Patient is paraplegic due to spinal surgery that was done 2 years ago patient was evaluated and admitted on 04/14/2024 was noted to be in septic shock complicated UTI with bacteremia. Blood cultures were positive at that time for Proteus, providencia, morganella patient was treated by ID with PICC line that was placed on 04/20/2024 with ertapenem. Patient had repeat blood cultures that were drawn at facility yesterday 05/13/2024. Pulmonary results are noted to be positive for gram-positive cocci in clusters. Dr. Moyer of infectious disease was consulted at that time and recommended patient come to the hospital for IV antibiotics. He currently denied active complaints. Denies subjective fever, chills, nausea, vomiting, cough, sob, abd pain, or headache. Will admit for further evaluation and management. Past Medical History: Past Medical History: Diagnosis Date Abnormal posture Abscess, perineum Anemia BPH (benign prostatic hyperplasia) Chronic back pain Hematuria Hip sprain Hyperlipidemia Hypertension Major depressive disorder, single episode, unspecified MRSA (methicillin resistant staph aureus) culture positive spine 2021 Muscle wasting and atrophy, not elsewhere classified, left lower leg Muscle weakness (generalized) Neuropathy Obstructive and reflux uropathy, unspecified Osteoarthritis Other abnormalities of gait and mobility Other reduced mobility Paraplegia (HCC) Sciatica Spinal stenosis of lumbar region with neurogenic claudication Type 2 diabetes mellitus without complication (CMS/HCC) (HCC) Urinary calculus, unspecified UTI (urinary tract infection) Past Surgical History: Past Surgical History: Procedure Laterality Date ANKLE SURGERY Right He has a titanium plate to the right ankle KNEE SURGERY Left ACL KNEE SURGERY Left removal of screw LAMINECTOMY Left 10/24/2020 LEFT BILATERAL L2-3-4-5 DECOMPRESSION performed by Opal Vigil MD at [facility] OR ORTHOPEDIC SURGERY Right removal of hardware ankle US PLACE URETAL STENT PERC PRE-EXIST TRACT S&I (HISTORICAL) Bilateral 04/14/2024 Dr. Patel/Bashir Social History: Social History Socioeconomic History Marital status: Spouse name: Not on file Number of children: Not on file Years of education: Not on file Highest education level: Not on file Occupational History Not on file Tobacco Use Smoking status: Every Day Current packs/day: 0.25 Average packs/day: 0.5 packs/day for 43.6 years (21.2 ttl pk-yrs) Types: Cigarettes Start date: 1977 Smokeless tobacco: Never Vaping Use Vaping status: Every Day Substances: Nicotine, Flavoring Substance and Sexual Activity Alcohol use: No Drug use: No Sexual activity: Not on file Other Topics Concern Not on file Social History Narrative Not on file Social Determinants of Health Financial Resource Strain: Low Risk (04/24/2023) [facility], [facility] Overall Financial Resource Strain (CARDI) Difficulty of Paying Living Expenses: Not hard at all Food Insecurity: No Food Insecurity (05/05/2024) Hunger Vital Sign Worried About Running Out of Food in the Last Year: Never true Ran Out of Food in the Last Year: Never true Transportation Needs: No Transportation Needs (05/05/2024) PRAPARE - Transportation Lack of Transportation (Medical): No Lack of Transportation (Non-Medical): No Physical Activity: Not on file Stress: Not on file Social Connections: Not on file Intimate Partner Violence: Not At Risk (05/05/2024) Humiliation, Afraid, Rape, and Kick questionnaire Fear of Current or Ex-Partner: No Emotionally Abused: No Physically Abused: No Sexually Abused: No Housing Stability: Low Risk (05/05/2024) Housing Stability Vital Sign Unable to Pay for Housing in the Last Year: No Number of Times Moved in the Last Year: 0 Homeless in the Last Year: No Family History: No family history on file. Medications Prior to Admission: No current facility-administered medications on file prior to encounter. Current Outpatient Medications on File Prior to Encounter Medication Sig Dispense Refill acetaminophen (Tylenol) 325 MG tablet Take 650 mg by mouth every 6 hours as needed. For elevated temp and/or pain. Do not exceed 3 grams in 24 hour period. acetic acid 0.25 % irrigation alogliptin (Nesina) 25 MG tablet daily. aspirin 81 MG EC tablet Take 81 mg by mouth daily. bisacodyl (Dulcolax) 5 MG EC tablet Take 5 mg by mo (more content not included)... [facility] 05-17-2024 Physician Emergency department Note EMERGENCY DEPARTMENT ENCOUNTER Pt Name: Anmol Reynolds Birthdate 1960 Date of evaluation: 05/17/2024 ED Provider: Terri Simeon PA-C CHIEF COMPLAINT Chief Complaint Patient presents with Other Abnormal labs, blood cultures has been done to pt in facility, gram + cocci. Had back sx 2 yrs ago that resulted to paraplegia, pt is paralyze from waist down. Afebrile, aox4 HISTORY OF PRESENT ILLNESS (Location/Symptom, Timing/Onset, Context/Setting, Quality, Duration, Modifying Factors, Severity) Note limiting factors. I wore appropriate PPE for the entirety of this encounter. HPI Anmol Reynolds is a 63 y.o. male who presents to the emergency department for evaluation of positive blood cultures. Patient is paraplegic due to spinal surgery that was done 2 years ago patient was evaluated and admitted on 04/14/2024 was noted to be in septic shock complicated UTI with bacteremia. Blood cultures were positive at that time for Proteus, providencia, morganella patient was treated by ID with PICC line that was placed on 04/20/2024 with ertapenem. Patient had repeat blood cultures that were drawn at facility yesterday 05/13/2024. Pulmonary results are noted to be positive for gram-positive cocci in clusters. Dr. Moyer of infectious disease was consulted at that time and recommended patient come to the hospital for IV antibiotics. Nursing Notes were reviewed. Limitations to history: None Outside historians: None REVIEW OF SYSTEMS Review of Systems 7 systems reviewed, positives and pertinent negatives as per HPI. All other systems were reviewed and are negative. PAST MEDICAL HISTORY Past Medical History: Diagnosis Date Abnormal posture Abscess, perineum Anemia BPH (benign prostatic hyperplasia) Chronic back pain Hematuria Hip sprain Hyperlipidemia Hypertension Major depressive disorder, single episode, unspecified MRSA (methicillin resistant staph aureus) culture positive spine 2021 Muscle wasting and atrophy, not elsewhere classified, left lower leg Muscle weakness (generalized) Neuropathy Obstructive and reflux uropathy, unspecified Osteoarthritis Other abnormalities of gait and mobility Other reduced mobility Paraplegia (HCC) Sciatica Spinal stenosis of lumbar region with neurogenic claudication Type 2 diabetes mellitus without complication (CMS/HCC) (HCC) Urinary calculus, unspecified UTI (urinary tract infection) SURGICAL HISTORY Past Surgical History: Procedure Laterality Date ANKLE SURGERY Right He has a titanium plate to the right ankle KNEE SURGERY Left ACL KNEE SURGERY Left removal of screw LAMINECTOMY Left 10/24/2020 LEFT BILATERAL L2-3-4-5 DECOMPRESSION performed by Opal Vigil MD at [facility] OR ORTHOPEDIC SURGERY Right removal of hardware ankle US PLACE URETAL STENT PERC PRE-EXIST TRACT S&I (HISTORICAL) Bilateral 04/14/2024 Dr. Patel/Bashir CURRENT MEDICATIONS Previous Medications ACETAMINOPHEN (TYLENOL) 325 MG TABLET Take 650 mg by mouth every 6 hours as needed. For elevated temp and/or pain. Do not exceed 3 grams in 24 hour period. ACETIC ACID 0.25 % IRRIGATION ALOGLIPTIN (NESINA) 25 MG TABLET daily. ASPIRIN 81 MG EC TABLET Take 81 mg by mouth daily. BISACODYL (DULCOLAX) 5 MG EC TABLET Take 5 mg by mouth Daily as needed for constipation. Do not crush, chew, or split. BISACODYL (DULCOLAX) 5 MG SPLIT SUPPOSITORY Insert into the rectum Daily as needed. CALCIUM CARBONATE (TUMS) 500 MG CHEWABLE TABLET 1,000 mg every 8 hours as needed for indigestion or heartburn. CLOTRIMAZOLE-BETAMETHASONE (LOTRISONE) CREAM CYCLOBENZAPRINE (FLEXERIL) 10 MG TABLET Take 10 mg by mouth 3 times daily as needed for muscle spasms. DOCUSATE SODIUM (COLACE) 100 MG TABLET Take 100 mg by mouth 2 times daily. FERROUS SULFATE 325 (65 FE) MG TABLET Take 325 mg by mouth daily (with breakfast). HYDROMORPHONE (DILAUDID) 4 MG TABLET Take by mouth every 4 hours as needed for severe pain (7-10). For pain 3-10/10 HYPROMELLOSE (PURE & GENTLE LUBRICANT) 0.3 % SOLUTION Administer 1 drop into affected eye(s) if needed. INSULIN GLARGINE (LANTUS) 100 UNIT/ML PEN Inject 45 Units under the skin every morning. INSULIN LISPRO (HUMALOG) 100 UNIT/ML SOLUTION INJECTION Inject 0-28 Units under the skin. 0-160=0 units; 161-200=14 units, 201-250=18 units, 251-300=20 units 301-350=22 units, 351-400=28 units, 401 or higher give 28 units and call physician. MAGNESIUM HYDROXIDE (MILK OF MAGNESIA PO) Take 30 mL by mouth Daily as needed. MIRTAZAPINE (REMERON) 7.5 MG TABLET Take 7.5 mg by mouth Nightly. MULTIPLE VITAMIN (MULTIVITAMIN) CAPSULE Take 1 capsule by mouth daily. NALOXONE (NARCAN) 4 MG/0.1 ML NASAL SPRAY OXYCODONE ER (OXYCONTIN) 15 MG 12 HR TABLET Do not crush, chew, or split. POLYETHYLENE GLYCOL, PEG, 3350 (MIRALAX) 17 G PACKET Take 17 g by mouth in the morning and 17 g in the evening. POTASSIUM CHLORIDE CR (KLOR-CON M20) 20 MEQ ER TABLET 40 mEq daily. PREGABALIN (LYRICA) 200 MG CAPSULE Take 1 capsule (200 mg) by mouth 3 times daily for 7 days. SODIUM CHLORIDE 0.9 % IRRIGATION SOLUTION Irrigate with as directed. 10 ml every 12 hours before and after medication administration TAMSULOSIN (FLOMAX) 0.4 MG 24 HR CAPSULE 0.4 mg daily. ALLERGIES Patient has no known allergies. FAMILY HISTORY No family history on file. SOCIAL HISTORY Social History Socioeconomic History Marital status: Tobacco Use Smoking status: Every Day Current packs/day: 0.25 Average packs/day: 0.5 packs/day for 43.6 years (21.2 ttl pk-yrs) Types: Cigarettes Start date: 1977 Smokeless tobacco: Never Vaping Use Vaping status: Every Day Substances: Nicotine, Flavoring Substance and Sexual Activity Alcohol use: No Drug use: No Social Determinants of Health Financial Resource Strain: Low Risk (04/24/2023) Received [facility], [facility] Overall Financial Resource Strain (CARDIA) Difficulty of Paying Living Expenses: Not hard at all Food Insecurity: No Food Insecurity (05/05/2024) Hunger Vital Sign Worried About Running Out of Food in the Last Year: Never true Ran Out of Food in the Last Year: Never true Transportation Needs: No Transportation Needs (05/05/2024) PRAPARE - Transportation Lack of Transportation (Medical): No Lack of Transportation (Non-Medical): No Intimate Partner Violence: Not At Risk (05/05/2024) Humiliation, Afraid, Rape, and Kick questionnaire Fear of Current or Ex-Partner: No Emotionally Abused: No Physically Abused: No Sexually Abused: No Housing Stability: Low Risk (05/05/2024) Housing Stability Vital Sign Unable to Pay for Housing in the Last Year: No Number of Times Moved in the Last Year: 0 Homeless in the Last Year: No SCREENINGS [place] Coma Scale Best Eye Response: Spontaneous Best Verbal Response: Oriented Best Motor Response: Follows commands Beatrice Coma Scale Score: 15 PHYSICAL EXAM ED Triage Vitals [05/17/242033] Temp Heart Rate Resp BP 36.4 C (97.5 F) 78 12 123/84 SpO2 Temp Source Heart Rate Source Patient Position 96 % Oral Monitor Lying BP Location FiO2 (%) -- -- Physical Exam Vitals and nursing note reviewed. Constitutional: General: He is not in acute distress. Appearance: He is not toxic-appearing. Comments: 64-year-old male who does not appear to be in acute distress or discomfort. HENT: Head: Normocephalic and atraumatic. Nose: Nose normal. Eyes: Conjunctiva/sclera: Conjunctivae normal. Cardiovascular: Rate and Rhythm: Normal rate and regular rhythm. Pulses: Normal pulses. Heart sounds: Normal heart sounds. Pulmonary: Effort: Pulmonary effort is normal. Abdominal: Comments: Abdomen soft and nonrigid. No tenderness palpation of abdomen diffusely. Musculoskeletal: Cervical back: Normal range of motion and neck supple. Skin: General: Skin is warm and dry. Capillary Refill: Capillary refill takes less than 2 seconds. Neurological: General: No focal deficit present. Mental Status: He is alert and oriented to person, place, and time. Psychiatric: Mood and Affect: Mood normal. DIAGNOSTIC RESULTS RADIOLOGY (Per Emergency Physician): Interpretation per the Radiologist below, if available at the time of this note: No orders to display LABS: Labs Reviewed CBC WITH AUTO DIFFERENTIAL - Abnormal Result Value Auto WBC 3.5 (*) RBC 6.51 (*) Hemoglobin 19.6 (*) Hematocrit 60.0 (*) MCV 92.2 MCH 30.1 MCHC 32.7 RDW 16.8 (*) Platelets 105 (*) MPV 9.9 nRBC 0.0 Neutrophils Relative 57.8 Lymphocytes Relative 26.9 Monocytes Relative 6.8 Eosinophils Relative 7.4 (*) Basophils Relative 0.8 Immature Grans % 0.3 Neutrophils Absolute 2.0 Lymphocytes Absolute 1.0 Monocytes Absolute 0.2 Eosinophils Absolute 0.3 Basophils Absolute 0.0 Immature Grans Absolute 0.0 BASIC METABOLIC PANEL - Abnormal SODIUM 136 POTASSIUM 4.4 CHLORIDE 109 (*) CARBON DIOXIDE 20 (*) UREA NITROGEN 12 CREATININE 0.68 GLUCOSE 172 (*) CALCIUM 8.7 ANION GAP 6 eGFR >90.0 COMPLETE URINALYSIS - Abnormal Color, Urine Yellow Clarity, Urine Turbid (*) pH, Urine 8.0 Leukocytes, Urine 500 (*) Nitrite, Urine Positive (*) Protein, Urine 100 (*) Glucose, Urine Normal Bilirubin, Urine Negative Ketones, Urine Negative Urobilinogen, Urine Normal Blood, Urine 1.0 (*) RBC, Urine 11-25 (*) WBC, Urine >100 (*) Squamous Epithelial, Urine Negative Bacteria, Urine Many (*) Mucus, Urine Few Triple Phosphate Crystals, Urine Few (*) SPECIFIC GRAVITY OF URINE (NUMERIC) 1.016 BLOOD CULTURE - Normal Blood Culture Blood culture incubation started Narrative: Blood Collection Site: Left Antecubital BLOOD CULTURE - Normal Blood Culture Blood culture incubation started Narrative: Blood Collection Site: Left Arm LACTIC ACID WITH REFLEX - Normal LACTIC ACID 1.4 URINE CULTURE COMPLETE URINALYSIS WITH REFLEX TO CULTURE Narrative: The following orders were created for panel order Urinalysis complete with reflex to Culture. Procedure Abnormality Status --------- ------ Complete Urinalysis[[id number]] Abnormal Final result Please view results for these tests on the individual orders. COMPLETE URINALYSIS WITH REFLEX TO CULTURE Narrative: The following orders were created for panel order Urinalysis complete with reflex to Culture. Procedure Abnormality Status --------- ------ Complete Urinalysis[[id number]] Please view results for these tests on the individual orders. COMPLETE URINALYSIS All other labs were within normal range or not returned as of this dictation. EMERGENCY DEPARTMENT COURSE and DIFFERENTIAL DIAGNOSIS/MDM: Vitals: Vitals: 05/17/24203305/17/242305 BP: 123/84 118/68 Patient Position: Lying Lying Pulse: 78 70 Resp: 12 18 Temp: 36.4 C (97.5 F) TempSrc: Oral SpO2: 96% Medications sodium chloride 0.9 % bolus 1,000 mL (1,000 mL IntraVENous New Bag 05/17/242155) piperacillin-tazobactam (Zosyn) IVPB 3,375 mg (0 mg IntraVENous Stopped 05/17/242227) morphine injection 4 mg (4 mg IntraVENous Given 05/17/242152) ondansetron (Zofran) injection 4 mg (4 mg IntraVENous Given 05/17/242152) ED care was supervised by Dr. Guerrero who independently examined and evaluated the patient. Please see their attestation note for further details. In brief, Anmol Reynolds is a 63 y.o. male who presented to the emergency department for abnormal blood culture results. See HPI further details. Nursing notes and medical records reviewed, patient was admitted on 04/14/2024 for septic shock complicated with UTI with positive blood cultures. Patient was treated with PICC line and ertapenem at that time. Repeat blood cultures that were taken from an outside facility had pulmonary results that were positive for gram-positive cocci in clusters. Dr. Moyer of infectious disease was consulted and recommended he go to the hospital for IV antibiotics. Differential considerations included sepsis, positive blood cultures, contamination Initial medical management includes Zosyn. Initial workup includes CBC, BMP, lactic acid, urinalysis, blood cultures. Lab workup results CBC shows mild leukopenia of 3.5. Hemoglobin is 19.6. Lactic acid within normal limits. BMP shows no significant electrolyte abnormalities. Urine is grossly infected although has indwelling Santana catheter. Nursing staff was notified to replace Santana catheter and get a repeat urine sample. Chronic conditions contributing to patients presentation include paraplegia, type 2 diabetes mellitus, hyperlipidemia, chronic indwelling Santana catheter, hypertension. Social determinants to care: None noted. Diagnosis positive blood cultures. Disposition admission to medical floor for IV antibiotics and further management of positive blood cultures. Recommend ID consult on admission. Patient admitted in stable condition. PROCEDURES: Unless otherwise noted below, none Procedures FINAL IMPRESSION 1. Positive blood cultures DISPOSITION Admit 05/17/2024 11:54:10 PM PATIENT REFERRED TO: No follow-up provider specified. DISCHARGE MEDICATIONS: New Prescriptions No medications on file (Comment: Please note this report has been produced using speech recognition software and may contain errors related to that system including errors in grammar, punctuation, and spelling, as well as words and phrases that may be inappropriate. If there are any questions or concerns please feel free to contact the dictating provider for clarification.) Terri Simeon PA-C (electronically signed) Emergency Medicine Provider Terri Simeon PA-C 05/17/24 [id number] [facility] 05-17-2024 Physician Emergency department Note Emergency Department Encounter [facility] EMERGENCY DEPT Patient: Anmol Reynolds : 1960 Date of Evaluation: 05/17/2024 ED Supervising Physician: Rodney Guerrero DO I personally evaluated Anmol Reynolds and made/approved the management plan and take responsibility for the patient management. This will serve as my Supervisory note and shared attestation. I did perform a substantive portion of the visit including all aspects of the Medical Decision Making. I wore appropriate PPE for the entirety of this encounter. In brief, Anmol Reynolds is a 63 y.o. that presents to the emergency department presents to the emergency department with complaints of abnormal blood cultures. Patient is a paraplegic with chronic indwelling catheter. Outpatient blood culture showed gram-positive in clusters thus was sent in for further evaluation management. Patient has no acute complaints at this time Focused exam: On exam, vitals stable. Gen: Nontoxic appearing. Head: NC/AT. CV: RRR. Resp: CTA bilaterally. Abd: Abd soft and notender. Ext: No obvious deformity or abnormalities of bilat UE and LE, Pulses 2+ bilateral UE and LE. Neuro: Baseline LE deficits Skin: No obvious rashes, warm, dry Brief ED course/MDM: Patient with hx of paraplegia, previous sepsis presents to the ED with complaints of abnl blood cultures. Additional information found above and also refer to aaliyah/resident note for further details. On exam, vitals stables. Per above. Otherwise per above Additional information found above and also refer to aaliyah/resident note for further details. With consideration of age, sex/gender, risk factors, to evaluate patient for high risk causes of morbidity and mortality such as, but not limited to, sepsis vs other Today we will obtain labs and imaging We will also provide medical/symptomatic management with zosyn. Discussed plan with patient who agrees with current plan. Diagnostics interpreted by me: Per below I personally discussed the patient's management with other clinicians: None End of visit medical decision making Patient was reassessed. Resting comfortably. No acute distress. Independently reviewed and interpreted the lab results which demonstrated the following: Significant electrolyte abnormalities, leukopenia at 3.5, hemoglobin of 19, UA with signs of cystitis Response to medical management provided in the ED: improving Discussed all results with patient and/or family members. They verbalize understanding. Offered admission for further management. Discussed risks, benefits and alternatives for further management in the hospital. Due to high risk of morbidity and mortality of the stated findings and results, patient will be admitted for further management and care. Patient is agreeable to the plan. Discussed patient, presentation and workup with admitting team. Admitting team is agreeable to current workup and evaluation. They will admit the patient and provide further care. Pending results to be followed by primary admitting team. All diagnostic, treatment, and disposition decisions were made by myself in conjunction with the AALIYAH. For all further details of the patient's emergency department visit, please see their documentation. (Comment: Please note this report has been produced using speech recognition software and may contain errors related to that system including errors in grammar, punctuation, and spelling, as well as words and phrases that may be inappropriate. If there are any questions or concerns please feel free to contact the dictating provider for clarification.) Rodney Guerrero DO [employer] Rodney Guerrero DO 05/18/24 [id number] [employer] Phone: 05-15-2024 History of Present illness Narrative HISTORY OF PRESENT ILLNESS Pharmaceutical Sales Representative: not needed - patient preferred language is Armenian. HIPAA: Verbal permission granted from patient to discuss case, including protected health information, in front of family / friends in room at the time of the evaluation. Anmol Reynolds is a very pleasant 63 year old male here as new patient for a second opinion of MRI results. In 2019, pt had his first back surgery performed by [facility] which was an interbody fusion. 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 At that point, the hospital took the hardware out and did not replace it with the goal of treating the infection. 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 After the infection was treated, [facility] extended his fusion, decompressed the back, and replaced all hardware. At that time he lost all motor and sensation to his lower extremities. He is now in a motorized chair. He gets some hip flexion by using his abdominal muscles. He has a full catheter and no sensation per pt. Recently, he was seen by Dr. Pierre who obtained an MRI and he would like my opinion on the results. - REVIEW OF SYSTEMS ----- The following systems were reviewed and are negative except as noted above and per scanned intake form: Constitutional, Eye, ENT, Cardiovascular, Respiratory, GI, , Musculoskeletal, Skin, Neurologic (No bowel/bladder incontinence, gait instability, or hand dexterity issues), Endocrine, Hematology/Lymphatic and Allergic/Immunologic ----- PAST HISTORY Past Medical History: No past medical history on file. Past Surgical History: There is no previous surgical history on file. Social History: Social History Socioeconomic History Marital status: Unknown Social Determinants of Health Financial Resource Strain: Low Risk (04/24/2023) Received from [facility] Overall Financial Resource Strain (CARDIA) Difficulty of Paying Living Expenses: Not hard at all Food Insecurity: No Food Insecurity (05/05/2024) Received from [facility] Hunger Vital Sign Worried About Running Out of Food in the Last Year: Never true Ran Out of Food in the Last Year: Never true Transportation Needs: No Transportation Needs (05/05/2024) Received from [facility] PRAPARE - Transportation Lack of Transportation (Medical): No Lack of Transportation (Non-Medical): No Intimate Partner Violence: Not At Risk (05/05/2024) Received from [facility] Humiliation, Afraid, Rape, and Kick questionnaire Fear of Current or Ex-Partner: No Emotionally Abused: No Physically Abused: No Sexually Abused: No Family History: No family history on file. Medications: The patient's home medications have been reviewed. Allergies: Patient has no known allergies. ----- PHYSICAL EXAM -------- Constitutional: Awake & alert. No distress. Head: Atraumatic. Eyes: No scleral icterus. ENT: Normal external inspection. Airway patent. Neck: Supple. No cervical midline bony tenderness, deformities, or step-offs. Cardiovascular: Equal pulses. Well perfused. Pulmonary/Chest: No respiratory distress. Abdominal: Non-distended. Musculoskeletal: No peripheral edema. Back: No midline bony tenderness, deformities, or step-offs of the thoracic, lumbar, and sacral spine. No abrasions or bruising. No erythema, induration or fluctuance. Skin: Normal color. Neurological: Alert, awake, and appropriate. 5/5 strength bilateral upper and lower extremities. No myelopathic reflexes. No sensory deficits to light touch. DTR s 2+ and equal. Normal gait. 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 There are also sacral insufficiency fractures. MR L-SPINE W/+W/O on 04/05/2024 showed a healing fusion construct with screws at T12-L1 and L4-5. There is some slight lordosis. There is some haloing around the L5 screws. There are also sacral insufficiency fractures. - ASSESSMENT & PLAN --- Sacral insufficiency fracture, initial encounter Today the patient and I discussed the nature and progression of their condition. We reviewed his recent xray which does show what appears to be a healing fusion construct with screws at T12-L1, skipping up L2-3 and screws at L4-5. He has an interbody fusion at L3-4 that looks like it's healed with some slight lordosis almost like PSO. There is some haloing around the L5 screws but I would not be concerned about lack of healing. His MRI did not show any pressure on the spinal canal, but did show significant arachnoiditis and clumping in almost a band of tissue at L2-3. He also has sacral insufficiency fractures as seen on xray and MRI. I had a long discussion with the patient today. I told him unfortunately, since this is now 2 years since his last surgery, I do not see a good chance of neurological recovery. That being said, I never attempt to not look higher up in the neck. I am incredibly surprised that he would have a neurological injury from this low of a construct. 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 I would strongly encourage a stimulator and any and all therapies that people are willing to do with him. From a sacral insufficiency fracture standpoint, I highly believe he needs a bone density scan as this is from the lack of compression due to not moving or he may have an underlying bone disease. Pt is a smoker, I discussed the need for cessation. I believe the pt would benefit from a full workup for his failed back. While I am happy to continue to see the pt as his surgeon, I do not see anything I can make better with a surgery at this time. Please call with any concerns. Return to clinic after imaging Patient to return sooner if worsening or if there are any changes. Orders: Orders & Meds Signed During This Encounter X-ray Sacrum-Coccyx XR SCOLIOSIS PA + LAT 2 OR 3 VIEWS BD Bone Density Survey (other indication) MR T-SPINE W/O MR C-SPINE W/O duloxetine (CYMBALTA) 60 MG capsule ferrous sulfate 325 (65 Fe) MG tablet HYDROmorphone (DILAUDID) 4 MG tablet imipenem-cilastatin (PRIMAXIN) 250 MG injection mirtazapine (REMERON) 7.5 MG tablet Multiple Vitamin (multivitamins) capsule Potassium Chloride 10 % SOLN nortriptyline (PAMELOR) 50 MG capsule tamsulosin (FLOMAX) 0.4 MG capsule Hyoscyamine Sulfate SL 0.125 MG SUBL --- SCRIBE ATTESTATION -- 05/15/2024, 4:21 PM. This note is prepared by Rivka Garnica acting as Scribe for Dr. Otis Mejia All medical record entries made by the Scribe were at my direction and personally dictated by me. I have reviewed the record and confirm that the note above accurately reflects all work, treatment, procedures, and medical decision making performed by me. Dr. Otis Mejia. documented in this encounter [facility] 05-13-2024 Telephone encounter Note Call received back from nurse Birdie who states blooc cultures were missed, but she will have them done on Thursday when the lab come back to the facility. [facility] 05-13-2024 Miscellaneous Notes Call received back from nurse Birdie who states blooc cultures were missed, but she will have them done on Thursday when the lab come back to the facility. Called and spoke to nurse Birdie at [facility] to obtain blood culture results that were ordered to be done on 05/06/24. She did state she cannot tell if they were done, she will call their lab and have the results faxed to us. If they were not done, she will have them obtained. I did ask that she please let us know what the outcome it. documented in this encounter [facility] 05-13-2024 Telephone encounter Note Called and spoke to nurse Birdie at [facility] to obtain blood culture results that were ordered to be done on 05/06/24. She did state she cannot tell if they were done, she will call their lab and have the results faxed to us. If they were not done, she will have them obtained. I did ask that she please let us know what the outcome it. [facility] 05-10-2024 Telephone encounter Note Pt calling requesting provider to follow up regarding MRI. Pt was unable to provide telephone, address or SSN. No information was provided at this time. [facility] 05-10-2024 Miscellaneous Notes Pt calling requesting provider to follow up regarding MRI. Pt was unable to provide telephone, address or SSN. No information was provided at this time. documented in this encounter [facility] 05-06-2024 Nurse Note Patient requested discharge transportation be provided by his brother, who drives a wheelchair accessible van. Spoke with nurse at [facility] who was aware that patient was returning this evening and was agreeable to patient being transported by private vehicle. IV Dc'd. Bedside RN called report. Patient transferred via everett lift to personal wheelchair and was escorted down to main entrance where his brother picked him up in van [facility] 05-06-2024 Nurse Note Patient requested discharge transportation be provided by his brother, who drives a wheelchair accessible van. Spoke with nurse at [facility] who was aware that patient was returning this evening and was agreeable to patient being transported by private vehicle. IV Dc'd. Bedside RN called report. Patient transferred via everett lift to personal wheelchair and was escorted down to main entrance where his brother picked him up in van documented in this encounter [facility] 05-06-2024 Note Formatting of this n ote is different from the original. Images from the original note were not included. Referral placed to [facility] Await review and response regarding ability to accept. TCC notified. [facility] 05-06-2024 Note Formatting of this n ote is different from the original. Images from the original note were not included. Referral placed to [facility] Await review and response regarding ability to accept. TCC notified. Electronically signed by [facility] Juana Villagomezh [facility] 05-06-2024 Note Referral placed to [facility] Return - [facility] Await review and response regarding ability to accept. TCC notified. Electronically signed by [facility] Miscellaneous Notes Images from the original note were not included. Referral placed to [facility] Await review and response regarding ability to accept. TCC notified. Electronically signed by [facility] Juana Villagomezh Addendum to earlier note: Pt to be discharged (returned) back to [facility]. Bedside RN aware, SW aware and will plan transport. Referral placed to [facility] via [facility] per TCC request. Await review and response regarding ability to accept. TCC notified. Electronically signed by [facility] Juana Edmonds Care Managment Initial Assessment Date: 05/06/2024 Patient Name: Anmol Reynolds : 1960 Patient Information Source of Information: Patient Cognition/Language: WFL - Within Functional Limits Permission given to speak with patient pharmaceutical sales representative/caregiver as indicated: Confirmation of Payer with patient/family: Yes Payer Name: Medicare A/B : No Confirmation of Primary Care Physician: Confirmed PCP Name: Ambrosio Esterle, DO Seen in last 2 years?: Yes Primary Caregiver: Self If assistance needed, confirmed caregiver ready, willing and able to care for patient at discharge: Confirmed with: Living Arrangements Current Residence: Number of Floors Number of Entry Steps: Bed/Bath Levels: Facility: Nursing Facility Skilled Facility Name: [facility] Plan to Return: Yes Lives with: Other (Comment) ([facility]) Support Systems: Parent, Family members, Friends/neighbors Activities of Daily Living Ambulation: Total Care Bathing/Dressing: Assistance Elimination/Continence/Toileting: Total Care Feeding: Independent Who Assists with Activities of Daily Living: Snf Staff Instrumental Activities of Daily Living Prescription Coverage: Yes Pharmacy Used: snf Medication Management: Transportation/Shopping: Assistance Provider Transportation Mode: Payer provided transport service Needs Assistance with Transportation at Discharge: Yes Meal Preparation: Assistance Provider Meal Prep Assistance Provider Name: [facility] Laundry/Cleaning: Assistance Provider Laundry/Cleaning Assistance Provider Name: SNF Finances/Bill Paying: Independent Communication: Independent Types of Care Services/Equipment Utilized Care Services: Dialysis Type: Durable Medical Equipment: Wheelchair (standard or power), Hospital Bed, Other (Comment) DME Provider: Santana catheter (chronic) Patient's Goal/Discharge Plan Patient expects to be discharged to: Return to [facility] Discharge Planning Actions: [facility] Facility referral indicated Aguilar of choice: Aguilar of choice discussed Patient's Choice Rights and [employer] and Collaborative Relationships Disclosed as Indicated for Post-Acute Care: Interdisciplinary Team Engagement: Social Work Referral for: Additional Information: 63 yo male assigned to post procedure recovery status for surgery 05/05/24: Laser Lithotripsy and bilateral ureteral stent exchange. Pt with hx of paraplegia, neuropathy , DM and chronic pain underwent surgery for kidney stones bilaterally. Pt is from [facility] and is agreeable to return. Pt states his mother is across the [place] from him. He has a chronic santana and R picc in place. On iv ceftriaxone. Regular diet. Pt had PT eval ordered. Met with pt at bedside; explained role of tcc. Pt wanting to return to [facility] Has chronic santana catheter. He has an electric w/c. Anticipate discharge (return) to [facility] today if medically stable. Anel Lima RN The patient is Moderately Stable - Low risk of patient condition declining or worsening The patient's goals for the shift include pain control The clinical goals for the shift include remain HDS this shift Over the shift, the patient did not make progress toward the following goals. Barriers to progression include none. Recommendations to address these barriers include none. Belongings returned to patient bedside. Meal tray ordered Images from the original note were not included. Joan Patel MD 05/06/2024 at 5:11 PM UROLOGY OPERATIVE REPORT PATIENT NAME: Anmol Reynolds DATE OF : 1960 TODAY'S DATE: 05/06/2024 PreOp Dx:: Bladder calculus, bilateral ureteral calculus PostOp Dx: Same Operation : Cystoscopy pyelogram litholapaxy of large bladder stone left ureteroscopy with replacement of left stent, right stent change Surgeon MD Sy Mares Anesthesia:general lma Ebl: Drains 6fr X 24cmJJ Santana 16 Slovenian Santana catheter Specimen: Bladder calculus for stone analysis, culture Complications None; patient tolerated the procedure well. Findings: He is a paraplegic. He was previously hospitalized with urosepsis and had bilateral stents placed. He presents this time for treatment of the bladder stone as well as a bilateral ureteral obstruction. The material in the bladder appeared to be more consistent with a fungus ball than a stone. The laser was used to break this material up and this was aspirated with the Nakita syringe. Some of the material was sent for stone analysis and some was sent for culture The left stent was removed and ureteroscopy was performed up to the kidney no other stones remained contrast was injected through the scope and there was no filling defects mass or hydronephrosis. Because of the manipulation the left stent was placed. The right stent was changed because the distal coil was lasered during treatment of the bladder stone. Right ureteroscopy was not performed because of the multiple procedures and the debris in the urine system visualization was very limited. He is going to be brought back for a second look on the right and removal of the left stent and hopefully removal of the right stent INDICATIONS: Anmol Reynolds , is a 63 y.o. male who presents with bilateral ureteral obstruction and a bladder stone.. Anmol Reynolds presents for bilateral laser lithotripsy. The risks benefits and alternatives were explained and the patient wishes to proceed. PROCEDURE: Anmol Reynolds Was brought to the operating room. Thorough time out was performed and everyone present was in agreement. Patient was placed on OR table. Anesthesia and lines were maintained by the anesthesia team. General anesthesia was induced he was prepped and draped usual fashion placed in lithotomy position. Cystoscope was inserted urethra. There is no stricture or tumor. He has a nonobstructing prostate. Laser was used and the material in the bladder was completely fragmented. The debris was removed with the Nakita syringe. The bladder was inspected there are no other stones tumors or foreign bodies within the bladder other than the stents. The stent was pulled to the meatus on the left. Sensor wire was passed up to the kidney. A 6.9 ureteroscope was used the ureter was inspected all the way up to the kidney. No stones were seen within the ureter. Contrast was injected through the scope. There is no filling defects or mass or hydronephrosis. The ureteroscope was removed. The cystoscope was loaded and the 6 x 26 double-J stent was passed over the wire. Good coil was noted in the kidney and in the bladder Sensor wire was passed up the ureter next to the right stent. Grasping forceps were used to remove the right stent. 6 x 26 double-J stent was passed over the wire. Good coil was noted in the kidney and in the bladder. The bladder was left full. Santana catheter was placed to straight drain. He was awakened and transferred to cover room having tolerated procedure well. He will follow-up in 2 to 3 weeks for left stent removal right ureteroscopy possible laser lithotripsy and right stent change or removal. Joan Patel MD 05/06/24 5:11 PM Spoke with the nurse Lauren from the facility pt came from. The nurse confirmed that pt did not have anything to eat after midnight and only sips of water with morning meds. See MAR for meds. documented in this encounter [facility] 05-06-2024 Hospital Discharge instructions Bianca Rodgers RN - 05/06/2024 2:49 PM EDT Images from the original note were not included. Continuity of Care Form Patient Name: Anmol Reynolds : 1960 Admit date: 05/05/2024 Discharge date: 05/06/2024 Code Status Order: Full Code Advance Directives: N Admitting Physician: Joan Patel MD PCP: AMBROSIO MONROY DO Discharging Nurse: Bianca Rodgers RN Discharging Hospital Unit/Room#: H-5133/[id number] A Discharging Unit Phone Number: [phone] Emergency Contact: Extended Emergency Contact Information Primary Emergency Contact: Ronald Reynolds Mobile Relation: Sibling Secondary Emergency Contact: SUMI REYNOLDS Mobile Relation: Daughter Past Surgical History: Past Surgical History: Procedure Laterality Date ANKLE SURGERY Right He has a titanium plate to the right ankle KNEE SURGERY Left ACL KNEE SURGERY Left removal of screw LAMINECTOMY Left 10/24/2020 LEFT BILATERAL L2-3-4-5 DECOMPRESSION performed by Opal Vigil MD at [facility] OR ORTHOPEDIC SURGERY Right removal of hardware ankle US PLACE URETAL STENT PERC PRE-EXIST TRACT S&I (HISTORICAL) Bilateral 04/14/2024 Dr. Patel/Bashir Immunization History: There is no immunization history on file for this patient. Active Problems: Medical Problems Problem List * (Principal) Bladder calculus Hypertension Hyperglycemia Hip sprain Anxiety Septic shock (HCC) Pressure injury of coccygeal region, stage 3 (HCC) Calculus of ureter Nicotine use disorder Unspecified osteoarthritis, unspecified site Pilonidal cyst without abscess Diabetes mellitus without complication (CMS/HCC) (HCC) Lumbar radiculopathy Abnormal finding on EKG Other intervertebral disc displacement, lumbar region Lumbar stenosis with neurogenic claudication Spinal stenosis of lumbar region with neurogenic claudication Herniated nucleus pulposus, L5-S1, left Isolation/Infection: No active isolations No active infections Nurse Assessment: Last Vital Signs: BP 121/82 (BP Location: Right arm, Patient Position: Lying) Pulse 96 Temp 36.7 C (98.1 F) (Temporal) Resp 20 Ht 1.905 m (6' 3") Wt 96.6 kg (213 lb) SpO2 95% BMI 26.62 kg/m Last documented pain score (0-10 scale): Last Weight: Wt Readings from Last 1 Encounters: 05/05/24 96.6 kg (213 lb) Mental Status: ADELINE Patient Mental Status: oriented and alert IV Access: ADELINE IV Access: None Nursing Mobility/ADLs: Walking Total assistance Transfer Total assistance Bathing Total assistance Dressing Total assistance Toileting Total assistance Feeding Minimal assistance Chlorine Cells Operator Minimal assistance Med Delivery yes Wound Care Documentation and Therapy: Wound/Incision 04/14/24 Pressure Injury Sacrum (Active) Number of days: 21 Elimination: Continence: Bowel: no Bladder: no Urinary Catheter: Insertion date: 05/06/2024 Colostomy/Ileostomy/Ileal Conduit: None Date of Last BM: 05/06/2024 Intake/Output Summary (Last 24 hours) at 05/06/2024 1448 Last data filed at 05/06/2024 0852 Gross per 24 hour Intake 1140 ml Output 1555 ml Net -415 ml I/O last 3 completed shifts: In: 900 (9.3 mL/kg) [I.V.:900 (9.3 mL/kg)] Out: 1555 (16.1 mL/kg) [Urine:1550 (0.4 mL/kg/hr); Blood:5] Weight: 96.6 kg Safety Concerns: at risk for falls Impairments/Disabilities: paralysis - waist down Nutrition Therapy: Current Nutrition Therapy: Oral diet: general Routes of Feeding: oral Liquids: thin liquids Daily Fluid Restriction: no Last Modified Barium Swallow with Video (Video Swallowing Test): not done Treatments at the Time of Hospital Discharge: Respiratory Treatments: Oxygen Therapy: is not on home oxygen therapy. Ventilator: No ventilator support Rehab Therapies: physical therapy and occupational therapy Weight Bearing Status/Restrictions: no restriction Other Medical Equipment (for information only, NOT a DME order): none Other Treatments: Patient's personal belongings (please select all that are sent with patient): wheelchair RN SIGNATURE: {E-signature:42198} CASE MANAGEMENT/SOCIAL WORK SECTION Inpatient Status Date: Discharging to Facility/ Agency Name: Address: Phone: Fax: Dialysis Facility (if applicable) Name: Address: Dialysis Schedule: Phone: Fax: [employer] Se[employer]/Asphalt Screed Operator signature: {E-signature:87853} PHYSICIAN SECTION Name: Anmol Reynolds Prognosis: {Rehab Prognosis:54288} Condition at Discharge: {Patient Condition:71735} Rehab Potential (if transferring to Rehab): {Rehab Prognosis:81187} Recommended Labs or Other Treatments After Discharge: The individual is being admitted to a nursing facility directly from an [facility] or a unit of a [facility] that is not operated by or licensed by [facility] under section 5119.14 or 5160-3-15.1 5 The individual requires the level of services provided by a nursing facility for the condition for which he or she was treated in the hospital and, Physician Certification: I certify the above information and transfer of Anmol Reynolds is necessary for the continuing treatment of the diagnosis listed and that he requires {ADELINE Level of Care:91812} for {greater less than:67564} 30 days. Update Admission H&P: {ADELINE Changes in H&P:87390} PHYSICIAN SIGNATURE: {E-signature:47349} The following attachments cannot be sent through Care Everywhere.Laser Lithotripsy for Kidney Stones Discharge Instructions (Armenian)How to Care for Your Santana Catheter (Armenian)documented in this encounter [facility] 05-06-2024 Note Formatting of this n ote might be different from the original. Addendum to earlier note: Pt to be discharged (returned) back to [facility]. Bedside RN aware, SW aware and will plan transport. [facility] 08-02-2024 Note Formatting of this n ote might be different from the original. Addendum to earlier note: Pt to be discharged (returned) back to [facility]. Bedside RN aware, SW aware and will plan transport. [facility] 05-06-2024 Note 48 Hour Discharge Samantha davis Note Patient ID: Anmol Reynolds [id number] 63 y.o. 1960 Admit date: 05/05/2024 Discharge date: 05/06/2024 Admitting Physician: Joan Patel MD Discharge Physician: Cindi Ferreira MD Consults: none Admission Diagnoses: Calculus of ureter [N20.1] Bladder calculus [N21.0] Procedure: Cystoscopy, cystolithopaxy, bilateral ureteroscopy laser lithotripsy and ureteral stent exchange Treatment: antibiotics: Ancef and ceftriaxone and surgery: As stated above in procedure Pertinent Findings and Labs noted during admission: see Epic Significant Diagnostic Studies: None Discharge Diagnoses: Calculus of ureter [N20.1] Bladder calculus [N21.0] Discharged Condition: stable Homegoing Instructions: activity as tolerated Recommended Follow-up: Follow up with Dr. Patel. His office will help coordinate outpatient follow up Diet: regular diet Discharge Medications: Medication List ASK your doctor about these medications acetaminophen 325 MG tablet Commonly known as: Tylenol acetic acid 0.25 % irrigation alogliptin 25 MG tablet Commonly known as: Nesina aspirin 81 MG EC tablet * bisacodyl 5 MG EC tablet Commonly known as: Dulcolax * bisacodyl 5 mg split suppository Commonly known as: Dulcolax clotrimazole-betamethasone cream Commonly known as: Lotrisone cyclobenzaprine 10 MG tablet Commonly known as: Flexeril docusate sodium 100 MG tablet Commonly known as: Colace ERTAPENEM SODIUM IV Ask about: Should I take this medication? ferrous sulfate 325 (65 Fe) MG tablet HYDROmorphone 4 MG tablet Commonly known as: Dilaudid insulin glargine 100 UNIT/ML pen Commonly known as: Lantus Insulin Lispro 100 UNIT/ML solution injection Commonly known as: Humalog MILK OF MAGNESIA PO mirtazapine 7.5 MG tablet Commonly known as: Remeron multivitamin capsule naloxone 4 mg/0.1 mL nasal spray Commonly known as: Narcan oxyCODONE ER 15 MG 12 hr tablet Commonly known as: OxyCONTIN polyethylene glycol (PEG) 3350 17 g packet Commonly known as: Miralax potassium chloride CR 20 MEQ ER tablet Commonly known as: Klor-Con M20 pregabalin 200 MG capsule Commonly known as: Lyrica Take 1 capsule (200 mg) by mouth 3 times daily for 7 days. Pure & Gentle Lubricant 3 MG/ML solution Generic drug: Hypromellose sodium chloride 0.9 % irrigation solution tamsulosin 0.4 MG 24 hr capsule Commonly known as: Flomax Tums 500 MG chewable tablet Generic drug: calcium carbonate * This list has 2 medication(s) that are the same as other medications prescribed for you. Read the directions carefully, and ask your doctor or other care provider to review them with you. Disposition: home Electronically signed by Cindi Ferreira MD. PGY-2 Urology [facility] 05-06-2024 Hospital course Narrative Images from the original note were not included. 48 Hour Discharge Summary Note Patient ID: Anmol Reynolds [id number] 63 y.o. 1960 Admit date: 05/05/2024 Discharge date: 05/06/2024 Admitting Physician: Joan Patel MD Discharge Physician: Cindi Ferreira MD Consults: none Admission Diagnoses: Calculus of ureter [N20.1] Bladder calculus [N21.0] Procedure: Cystoscopy, cystolithopaxy, bilateral ureteroscopy laser lithotripsy and ureteral stent exchange Treatment: antibiotics: Ancef and ceftriaxone and surgery: As stated above in procedure Pertinent Findings and Labs noted during admission: see Epic Significant Diagnostic Studies: None Discharge Diagnoses: Calculus of ureter [N20.1] Bladder calculus [N21.0] Discharged Condition: stable Homegoing Instructions: activity as tolerated Recommended Follow-up: Follow up with Dr. Patel. His office will help coordinate outpatient follow up Diet: regular diet Discharge Medications: Medication List ASK your doctor about these medications acetaminophen 325 MG tablet Commonly known as: Tylenol acetic acid 0.25 % irrigation alogliptin 25 MG tablet Commonly known as: Nesina aspirin 81 MG EC tablet * bisacodyl 5 MG EC tablet Commonly known as: Dulcolax * bisacodyl 5 mg split suppository Commonly known as: Dulcolax clotrimazole-betamethasone cream Commonly known as: Lotrisone cyclobenzaprine 10 MG tablet Commonly known as: Flexeril docusate sodium 100 MG tablet Commonly known as: Colace ERTAPENEM SODIUM IV Ask about: Should I take this medication? ferrous sulfate 325 (65 Fe) MG tablet HYDROmorphone 4 MG tablet Commonly known as: Dilaudid insulin glargine 100 UNIT/ML pen Commonly known as: Lantus Insulin Lispro 100 UNIT/ML solution injection Commonly known as: Humalog MILK OF MAGNESIA PO mirtazapine 7.5 MG tablet Commonly known as: Remeron multivitamin capsule naloxone 4 mg/0.1 mL nasal spray Commonly known as: Narcan oxyCODONE ER 15 MG 12 hr tablet Commonly known as: OxyCONTIN polyethylene glycol (PEG) 3350 17 g packet Commonly known as: Miralax potassium chloride CR 20 MEQ ER tablet Commonly known as: Klor-Con M20 pregabalin 200 MG capsule Commonly known as: Lyrica Take 1 capsule (200 mg) by mouth 3 times daily for 7 days. Pure & Gentle Lubricant 3 MG/ML solution Generic drug: Hypromellose sodium chloride 0.9 % irrigation solution tamsulosin 0.4 MG 24 hr capsule Commonly known as: Flomax Tums 500 MG chewable tablet Generic drug: calcium carbonate * This list has 2 medication(s) that are the same as other medications prescribed for you. Read the directions carefully, and ask your doctor or other care provider to review them with you. Disposition: home Electronically signed by Cindi Ferreira MD. PGY-2 Urology documented in this encounter [facility] 05-06-2024 Note Formatting of this n ote might be different from the original. [facility] request. Await review and response regarding ability to accept. TCC notified. [facility] 05-06-2024 Note Formatting of this n ote might be different from the original. Referral placed to SNF Return - [facility] via [facility] per TCC request. Await review and response regarding ability to accept. TCC notified. Electronically signed by [facility] 05-06-2024 Note Referral placed to [facility] - [facility] via [facility] per TCC request. Await review and response regarding ability to accept. TCC notified. [facility] 05-06-2024 Note Formatting of this n ote might be different from the original. Care Managment Initial Assessment Date: 05/06/2024 Patient Name: Anmol Reynolds : 1960 Patient Information Source of Information: Patient Cognition/Language: WFL - Within Functional Limits Permission given to speak with patient pharmaceutical sales representative/caregiver as indicated: Confirmation of Payer with patient/family: Yes Payer Name: Medicare A/B [place]: No Confirmation of Primary Care Physician: Confirmed PCP Name: Ambrosio Monroy DO Seen in last 2 years?: Yes Primary Caregiver: Self If assistance needed, confirmed caregiver ready, willing and able to care for patient at discharge: Confirmed with: Living Arrangements Current Residence: Number of Floors Number of Entry Steps: Bed/Bath Levels: Facility: Nursing Facility Skilled Facility Name: [facility] Plan to Return: Yes Lives with: Other (Comment) ([facility]) Support Systems: Parent, Family members, Friends/neighbors Activities of Daily Living Ambulation: Total Care Bathing/Dressing: Assistance Elimination/Continence/Toileting: Total Care Feeding: Independent Who Assists with Activities of Daily Living: Snf Staff Instrumental Activities of Daily Living Prescription Coverage: Yes Pharmacy Used: snf Medication Management: Transportation/Shopping: Assistance Provider Transportation Mode: Payer provided transport service Needs Assistance with Transportation at Discharge: Yes Meal Preparation: Assistance Provider Meal Prep Assistance Provider Name: [facility] Laundry/Cleaning: Assistance Provider Laundry/Cleaning Assistance Provider Name: SNF Finances/Bill Paying: Independent Communication: Independent Types of Care Services/Equipment Utilized Care Services: Dialysis Type: Durable Medical Equipment: Wheelchair (standard or power), Hospital Bed, Other (Comment) DME Provider: Santana catheter (chronic) Patient's Goal/Discharge Plan Patient expects to be discharged to: Return to [facility] Discharge Planning Actions: [facility] Facility referral indicated Aguilar of choice: Aguilar of choice discussed Patient's Choice Rights and [employer] and Collaborative Relationships Disclosed as Indicated for Post-Acute Care: Interdisciplinary Team Engagement: Social Work Referral for: Additional Information: 63 yo male assigned to post procedure recovery status for surgery 05/05/24: Laser Lithotripsy and bilateral ureteral stent exchange. Pt with hx of paraplegia, neuropathy , DM and chronic pain underwent surgery for kidney stones bilaterally. Pt is from [facility] and is agreeable to return. Pt states his mother is across the [place] from him. He has a chronic santana and R picc in place. On iv ceftriaxone. Regular diet. Pt had PT eval ordered. Met with pt at bedside; explained role of tcc. Pt wanting to return to [facility] Has chronic santana catheter. He has an electric w/c. Anticipate discharge (return) to [facility] today if medically stable. Anel Lima RN [facility] 05-06-2024 Note Formatting of this n ote might be different from the original. Care Managment Initial Assessment Date: 05/06/2024 Patient Name: Anmol Reynolds : 1960 Patient Information Source of Information: Patient Cognition/Language: WFL - Within Functional Limits Permission given to speak with patient pharmaceutical sales representative/caregiver as indicated: Confirmation of Payer with patient/family: Yes Payer Name: Medicare A/B : No Confirmation of Primary Care Physician: Confirmed PCP Name: Ambrosio Monroy, DO Seen in last 2 years?: Yes Primary Caregiver: Self If assistance needed, confirmed caregiver ready, willing and able to care for patient at discharge: Confirmed with: Living Arrangements Current Residence: Number of Floors Number of Entry Steps: Bed/Bath Levels: Facility: Nursing Facility Skilled Facility Name: [facility] Plan to Return: Yes Lives with: Other (Comment) ([facility]) Support Systems: Parent, Family members, Friends/neighbors Activities of Daily Living Ambulation: Total Care Bathing/Dressing: Assistance Elimination/Continence/Toileting: Total Care Feeding: Independent Who Assists with Activities of Daily Living: Snf Staff Instrumental Activities of Daily Living Prescription Coverage: Yes Pharmacy Used: snf Medication Management: Transportation/Shopping: Assistance Provider Transportation Mode: Payer provided transport service Needs Assistance with Transportation at Discharge: Yes Meal Preparation: Assistance Provider Meal Prep Assistance Provider Name: SNF Laundry/Cleaning: Assistance Provider Laundry/Cleaning Assistance Provider Name: SNF Finances/Bill Paying: Independent Communication: Independent Types of Care Services/Equipment Utilized Care Services: Dialysis Type: Durable Medical Equipment: Wheelchair (standard or power), Hospital Bed, Other (Comment) DME Provider: Santana catheter (chronic) Patient's Goal/Discharge Plan Patient expects to be discharged to: Return to [facility] Discharge Planning Actions: Ch[facility] Facility referral indicated Aguilar of choice: Aguilar of choice discussed Patient's Choice Rights and [employer] and Collaborative Relationships Disclosed as Indicated for Post-Acute Care: Interdisciplinary Team Engagement: Social Work Referral for: Additional Information: 63 yo male assigned to post procedure recovery status for surgery 05/05/24: Laser Lithotripsy and bilateral ureteral stent exchange. Pt with hx of paraplegia, neuropathy , DM and chronic pain underwent surgery for kidney stones bilaterally. Pt is from [facility] and is agreeable to return. Pt states his mother is across [place] from him. He has a chronic santana and R picc in place. On iv ceftriaxone. Regular diet. Pt had PT eval ordered. Met with pt at bedside; explained role of tcc. Pt wanting to return to [facility] Has chronic santana catheter. He has an electric w/c. Anticipate discharge (return) to [facility] today if medically stable. Anel Lima RN [facility] 05-06-2024 Note UROLOGY PROGRESS NOTE PATIENT NAME: Anmol Reynolds DATE OF : 1960 ADMISSION DATE: 05/05/2024 TODAY'S DATE: 05/06/2024 Subjective Pt evalauted at bedside in NAD. JIMÉNEZ. POD1 of laser lithotripsy and b/l ureteral stent exchange. Unable to ambulate (paraplegic) but pt states tolerating diet. Denies fevers/chills, n/v, flank pain, suprapubic pain, or other systemic symptoms. Pt denies any concerns at this time. Santana bag draining Grade 4 urine early this morning but down to a 1/2 upon reexamination a hour later. Manual irrigation at bedside returned clear urine with no clots, only residual sediment. Objective VS: BP 121/82 (BP Location: Right arm, Patient Position: Lying) Pulse 96 Temp 36.7 ?C (98.1 ?F) (Temporal) Resp 20 Ht 6' 3" (1.905 m) Wt 213 lb (96.6 kg) SpO2 95% BMI 26.62 kg/m? I & O - 24hr: I/O last 3 completed shifts: In: 900 (9.3 mL/kg) [I.V.:900 (9.3 mL/kg)] Out: 805 (8.3 mL/kg) [Urine:800 (0.2 mL/kg/hr); Blood:5] Weight: 96.6 kg I/O this shift: In: - Out: 750 [Urine:750] Physical Exam: General: Neck: Resp: Abdomen: No acute distress Supple Normal effort, no respiratory distress, on RA Soft, non-tender, nondistended : L flank NTP, R flank NTP, no suprapubic tenderness Skin: Skin color, texture, turgor normal, no rashes or lesions Labs and Imaging Studies Labs: CBC: Lab Results Component Value Date WBC 6.0 04/27/2024 HGB 12.8 (L) 04/27/2024 HCT 39.8 (L) 04/27/2024 MCV 93.2 04/27/2024 PLT 333 04/27/2024 BMP: Lab Results Component Value Date GLUCOSE 331 (H) 04/27/2024 CALCIUM 8.4 04/27/2024 NA 138 04/27/2024 K 4.7 04/27/2024 CO2 23 04/27/2024 CL 107 04/27/2024 BUN 11 04/27/2024 CREATININE 0.65 (L) 04/27/2024 PT/INR: Lab Results Component Value Date INR 1.0 04/16/2024 INR 2.7 (H) 04/14/2024 INR 0.9 10/15/2020 PROTIME 10.9 04/16/2024 PROTIME 27.1 (H) 04/14/2024 PROTIME 12.6 10/15/2020 Imaging Studies: n/a Assessment and Plan ASSESSMENT: 63 y.o. male with b/l calculi s/p laser lithotripsy and b/l ureteral stent exchange PLAN: - Resume diet - Continue to monitor santana catheter for hematuria evaluation - Plan to discharge today vs tomorrow - Will coordinate outpatient f/u care with Urology - Continue to monitor labs and VS Cindi Ferreira MD PGY-2 Urology Cindi Ferreira MD PGY-2 Urology [facility] 05-06-2024 History of Present illness Narrative UROLOGY PROGRESS NOTE PATIENT NAME: Anmol Franco Given DATE OF : 1960 ADMISSION DATE: 05/05/2024 TODAY'S DATE: 05/06/2024 Subjective Pt evalauted at bedside in NAD. JAKEEON. POD1 of laser lithotripsy and b/l ureteral stent exchange. Unable to ambulate (paraplegic) but pt states tolerating diet. Denies fevers/chills, n/v, flank pain, suprapubic pain, or other systemic symptoms. Pt denies any concerns at this time. Santana bag draining Grade 4 urine early this morning but down to a 1/2 upon reexamination a hour later. Manual irrigation at bedside returned clear urine with no clots, only residual sediment. Objective VS: BP 121/82 (BP Location: Right arm, Patient Position: Lying) Pulse 96 Temp 36.7 C (98.1 F) (Temporal) Resp 20 Ht 6' 3" (1.905 m) Wt 213 lb (96.6 kg) SpO2 95% BMI 26.62 kg/m I & O - 24hr: I/O last 3 completed shifts: In: 900 (9.3 mL/kg) [I.V.:900 (9.3 mL/kg)] Out: 805 (8.3 mL/kg) [Urine:800 (0.2 mL/kg/hr); Blood:5] Weight: 96.6 kg I/O this shift: In: - Out: 750 [Urine:750] Physical Exam: General: Neck: Resp: Abdomen: No acute distress Supple Normal effort, no respiratory distress, on RA Soft, non-tender, nondistended : L flank NTP, R flank NTP, no suprapubic tenderness Skin: Skin color, texture, turgor normal, no rashes or lesions Labs and Imaging Studies Labs: CBC: Lab Results Component Value Date WBC 6.0 04/27/2024 HGB 12.8 (L) 04/27/2024 HCT 39.8 (L) 04/27/2024 MCV 93.2 04/27/2024 PLT 333 04/27/2024 BMP: Lab Results Component Value Date GLUCOSE 331 (H) 04/27/2024 CALCIUM 8.4 04/27/2024 NA 138 04/27/2024 K 4.7 04/27/2024 CO2 23 04/27/2024 CL 107 04/27/2024 BUN 11 04/27/2024 CREATININE 0.65 (L) 04/27/2024 PT/INR: Lab Results Component Value Date INR 1.0 04/16/2024 INR 2.7 (H) 04/14/2024 INR 0.9 10/15/2020 PROTIME 10.9 04/16/2024 PROTIME 27.1 (H) 04/14/2024 PROTIME 12.6 10/15/2020 Imaging Studies: n/a Assessment and Plan ASSESSMENT: 63 y.o. male with b/l calculi s/p laser lithotripsy and b/l ureteral stent exchange PLAN: - Resume diet - Continue to monitor santana catheter for hematuria evaluation - Plan to discharge today vs tomorrow - Will coordinate outpatient f/u care with Urology - Continue to monitor labs and VS Cindi Ferreira MD PGY-2 Urology Cindi Ferreira MD PGY-2 Urology documented in this encounter [facility] 05-05-2024 Plan of care note The patient is Moderately Stable - Low risk of patient condition declining or worsening The patient's goals for the shift include pain control The clinical goals for the shift include remain HDS this shift Over the shift, the patient did not make progress toward the following goals. Barriers to progression include none. Recommendations to address these barriers include none. [facility] 05-05-2024 Note Formatting of this n ote might be different from the original. Belongings returned to patient bedside. Meal tray ordered [facility] 05-05-2024 Note Formatting of this n ote might be different from the original. Belongings returned to patient bedside. Meal tray ordered [facility] 05-05-2024 Note Patient: Anmol Santiago en Procedure Summary Date: 05/05/24 Room / Location: [address] Operating Room Anesthesia Start: 1521 Anesthesia Stop: 165 Procedures: CYSTOSCOPY, POSSIBLE CYSTOLITHOLAPAXY, BILATERAL URETEROSCOPY ASTRID LASER LITHOTRIPSY, BILATERAL URETERAL STENT CHANGE (Urethra) POSSIBLE CYSTOLITHOLAPAXY (Urethra) BILATERAL URETEROSCOPY ASTRID LASER LITHOTRIPSY (Bilateral: Urethra) BILATERAL URETERAL STENT CHANGE (Bilateral: Urethra) Diagnosis: Calculus of ureter Surgeons: Joan Patel MD Responsible Provider: Corbin Matias MD Anesthesia Type: general ASA Status: 3 Anesthesia Type: general Vitals Value Taken Time BP 118/72 05/05/24 1745 Temp 36.4 ?C (97.5 ?F) 05/05/24 1655 Pulse 80 05/05/24 1745 Resp 16 05/05/24 1745 SpO2 98 % 05/05/24 1745 Anesthesia Post Evaluation Patient location during evaluation: PACU Patient participation: complete - patient participated Level of consciousness: sleepy but conscious Pain management: satisfactory to patient Multimodal analgesia pain management approach Airway patency: patent Two or more strategies used to mitigate risk of obstructive sleep apnea Cardiovascular status: acceptable and hemodynamically stable Respiratory status: acceptable and face mask Hydration status: acceptable No notable events documented. MIPS #[id number] PONV Patient received an inhalational anesthetic (4554F) Patient does not exhibit three or more risk factors for PONV (X0430)) MIPS # 424 Perioperative Temperature Management Anesthesia time was 60 minutes or longer (4255F) Anesthesai administered was General (inhalational or TIVA) or Neuraxial block (X0424) At least one body temperature greater than 95.8F/35.5C achieved within the 30 mins immediately prior to or the 15 minutes immediately following anesthesia end time (G9771) MIPS #477 Multimodal Pain Management Not emergent case Patient was administered multimodal pain management (two or more drugs and/or interventions excluding systemic opioids) in the periopeartive period occurring at some time between 6 hours prior to anesthesia start time until discharged from PACU (G2148) MIPS #404 Anesthesiology Smoking Abstinence The patient is not a current smoker (e.g. cigarette, cigar, pipe, e-cigarette/vaping/marijuana) If no stop here (XX404) I completed my handoff to the receiving clinician during which we: 1. Identified the patient 2. Identified the responsible provider 3. Reviewed the pertinent medical history 4. Discussed the surgical course 5. Reviewed intra-op anesthesia management and issues during anesthesia 6. Set expectations for post-procedure period 7. Allowed opportunity for questions and acknowledgement of understanding. [facility] 05-05-2024 Note Patient: Anmol Santiago en Procedure Summary Date: 05/05/24 Room / Location: [address] Operating Room Anesthesia Start: 152 Anesthesia Stop: 165 Procedures: CYSTOSCOPY, POSSIBLE CYSTOLITHOLAPAXY, BILATERAL URETEROSCOPY ASTRID LASER LITHOTRIPSY, BILATERAL URETERAL STENT CHANGE (Urethra) POSSIBLE CYSTOLITHOLAPAXY (Urethra) BILATERAL URETEROSCOPY ASTRID LASER LITHOTRIPSY (Bilateral: Urethra) BILATERAL URETERAL STENT CHANGE (Bilateral: Urethra) Diagnosis: Calculus of ureter Surgeons: Joan Patel MD Responsible Provider: Corbin Matias MD Anesthesia Type: general ASA Status: 3 Anesthesia Type: general Vitals Value Taken Time BP 118/72 05/05/24 1745 Temp 36.4 ?C (97.5 ?F) 05/05/24 1655 Pulse 80 05/05/24 1745 Resp 16 05/05/24 1745 SpO2 98 % 05/05/24 1745 Anesthesia Post Evaluation Patient location during evaluation: PACU Patient participation: complete - patient participated Level of consciousness: sleepy but conscious Pain management: satisfactory to patient Airway patency: patent Dental Injury: no Cardiovascular status: acceptable, blood pressure returned to baseline and hemodynamically stable Respiratory status: acceptable, spontaneous ventilation and face mask Hydration status: euvolemic Nausea/Vomiting: controlled No notable events documented. Patient can be discharged once all PACU criteria has been met. [facility] 05-05-2024 Note Airway Date/Time: 05/05/2024 3:29 PM Urgency: scheduled Airway not difficult General Information and Staff Patient location during procedure: Procedural Resident/THREAD SPOOLER: Jj Flores CRNA Performed: THREAD SPOOLER Indications and Patient Condition Indications for airway management: anesthesia Sedation level: Asleep Preoxygenated: yes Patient position: sniffing Mask difficulty assessment: 0 - not attempted Final Airway Details Final airway type: supraglottic airway Successful airway: Igel Size 4 Number of attempts at approach: 1 [facility] 05-05-2024 Note Formatting of this n ote might be different from the original. Images from the original note were not included. Joan Patel MD 05/06/2024 at 5:11 PM UROLOGY OPERATIVE REPORT PATIENT NAME: Anmol Reynolds DATE OF : 1960 TODAY'S DATE: 05/06/2024 PreOp Dx:: Bladder calculus, bilateral ureteral calculus PostOp Dx: Same Operation : Cystoscopy pyelogram litholapaxy of large bladder stone left ureteroscopy with replacement of left stent, right stent change Surgeon MD Sy Mares Anesthesia:general lma Ebl: Drains 6fr X 24cmJJ Santana 16 Slovenian Santana catheter Specimen: Bladder calculus for stone analysis, culture Complications None; patient tolerated the procedure well. Findings: He is a paraplegic. He was previously hospitalized with urosepsis and had bilateral stents placed. He presents this time for treatment of the bladder stone as well as a bilateral ureteral obstruction. The material in the bladder appeared to be more consistent with a fungus ball than a stone. The laser was used to break this material up and this was aspirated with the Nakita syringe. Some of the material was sent for stone analysis and some was sent for culture The left stent was removed and ureteroscopy was performed up to the kidney no other stones remained contrast was injected through the scope and there was no filling defects mass or hydronephrosis. Because of the manipulation the left stent was placed. The right stent was changed because the distal coil was lasered during treatment of the bladder stone. Right ureteroscopy was not performed because of the multiple procedures and the debris in the urine system visualization was very limited. He is going to be brought back for a second look on the right and removal of the left stent and hopefully removal of the right stent INDICATIONS: Anmol Reynolds , is a 63 y.o. male who presents with bilateral ureteral obstruction and a bladder stone.. Anmol Reynolds presents for bilateral laser lithotripsy. The risks benefits and alternatives were explained and the patient wishes to proceed. PROCEDURE: Anmol Reynolds Was brought to the operating room. Thorough time out was performed and everyone present was in agreement. Patient was placed on OR table. Anesthesia and lines were maintained by the anesthesia team. General anesthesia was induced he was prepped and draped usual fashion placed in lithotomy position. Cystoscope was inserted urethra. There is no stricture or tumor. He has a nonobstructing prostate. Laser was used and the material in the bladder was completely fragmented. The debris was removed with the Nakita syringe. The bladder was inspected there are no other stones tumors or foreign bodies within the bladder other than the stents. The stent was pulled to the meatus on the left. Sensor wire was passed up to the kidney. A 6.9 ureteroscope was used the ureter was inspected all the way up to the kidney. No stones were seen within the ureter. Contrast was injected through the scope. There is no filling defects or mass or hydronephrosis. The ureteroscope was removed. The cystoscope was loaded and the 6 x 26 double-J stent was passed over the wire. Good coil was noted in the kidney and in the bladder Sensor wire was passed up the ureter next to the right stent. Grasping forceps were used to remove the right stent. 6 x 26 double-J stent was passed over the wire. Good coil was noted in the kidney and in the bladder. The bladder was left full. Santana catheter was placed to straight drain. He was awakened and transferred to cover room having tolerated procedure well. He will follow-up in 2 to 3 weeks for left stent removal right ureteroscopy possible laser lithotripsy and right stent change or removal. Joan Patel MD 05/06/24 5:11 PM [facility] 05-05-2024 Note Formatting of this n ote might be different from the original. Images from the original note were not included. Joan Patel MD 05/06/2024 at 5:11 PM UROLOGY OPERATIVE REPORT PATIENT NAME: Anmol Reynolds DATE OF : 1960 TODAY'S DATE: 05/06/2024 PreOp Dx:: Bladder calculus, bilateral ureteral calculus PostOp Dx: Same Operation : Cystoscopy pyelogram litholapaxy of large bladder stone left ureteroscopy with replacement of left stent, right stent change Surgeon Joan Patel MD Assist Kaitlin Granados Anesthesia:general lma Ebl: Drains 6fr X 24cmJJ Santana 16 Slovenian Santana catheter Specimen: Bladder calculus for stone analysis, culture Complications None; patient tolerated the procedure well. Findings: He is a paraplegic. He was previously hospitalized with urosepsis and had bilateral stents placed. He presents this time for treatment of the bladder stone as well as a bilateral ureteral obstruction. The material in the bladder appeared to be more consistent with a fungus ball than a stone. The laser was used to break this material up and this was aspirated with the Nakita syringe. Some of the material was sent for stone analysis and some was sent for culture The left stent was removed and ureteroscopy was performed up to the kidney no other stones remained contrast was injected through the scope and there was no filling defects mass or hydronephrosis. Because of the manipulation the left stent was placed. The right stent was changed because the distal coil was lasered during treatment of the bladder stone. Right ureteroscopy was not performed because of the multiple procedures and the debris in the urine system visualization was very limited. He is going to be brought back for a second look on the right and removal of the left stent and hopefully removal of the right stent INDICATIONS: Anmol Reynolds , is a 63 y.o. male who presents with bilateral ureteral obstruction and a bladder stone.. Anmol Reynolds presents for bilateral laser lithotripsy. The risks benefits and alternatives were explained and the patient wishes to proceed. PROCEDURE: Anmol Reynolds Was brought to the operating room. Thorough time out was performed and everyone present was in agreement. Patient was placed on OR table. Anesthesia and lines were maintained by the anesthesia team. General anesthesia was induced he was prepped and draped usual fashion placed in lithotomy position. Cystoscope was inserted urethra. There is no stricture or tumor. He has a nonobstructing prostate. Laser was used and the material in the bladder was completely fragmented. The debris was removed with the Nakita syringe. The bladder was inspected there are no other stones tumors or foreign bodies within the bladder other than the stents. The stent was pulled to the meatus on the left. Sensor wire was passed up to the kidney. A 6.9 ureteroscope was used the ureter was inspected all the way up to the kidney. No stones were seen within the ureter. Contrast was injected through the scope. There is no filling defects or mass or hydronephrosis. The ureteroscope was removed. The cystoscope was loaded and the 6 x 26 double-J stent was passed over the wire. Good coil was noted in the kidney and in the bladder Sensor wire was passed up the ureter next to the right stent. Grasping forceps were used to remove the right stent. 6 x 26 double-J stent was passed over the wire. Good coil was noted in the kidney and in the bladder. The bladder was left full. Santana catheter was placed to straight drain. He was awakened and transferred to cover room having tolerated procedure well. He will follow-up in 2 to 3 weeks for left stent removal right ureteroscopy possible laser lithotripsy and right stent change or removal. Joan Patel MD 05/06/24 5:11 PM [facility] 05-05-2024 Attending History and physical note Images from the original note were not included. H&P Update Patient's History and Physical from 04/27/24 was reviewed. Patient examined. There has been no change. Impression: bilateral ureteral calculus bladder calculus Plan: : cp laser bladder stone bilateral ureteroscopy laser lithotripsy bilateral stent change : Electronically signed by Joan Patel MD 05/05/24 1:20 PM Source Note - Radha Lucas, JOE - DOCUMENT MANAGEMENT TECHNICIAN - 04/27/2024 2:00 PM EDT Images from the original note were not included. Comprehensive Pre Surgical History and Physical ? Name: Anmol Reynolds : 1960 (Age-63 y.o.) Date of Service: Pt seen/examined on 04/27/2024 Procedure Information Date/Time: 05/05/24 1230 Procedures: CYSTOSCOPY (Urethra) - 120 MINS POSSIBLE CYSTOLITHOLAPAXY (Urethra) BILATERAL URETEROSCOPY ASTRID LASER LITHOTRIPSY (Bilateral: Urethra) BILATERAL URETERAL STENT CHANGE (Bilateral: Urethra) Location: [address] Operating Room Surgeons: Joan Patel MD Chief Complaint: Calculus of ureter [N20.1] ASSESSMENT/PLAN: Patient is considered intermediate risk for this intermediate level 1 risk procedure/surgery 1) Calculus of ureter [N20.1] - Managed per surgery BMP, CBC per PAT protocol A1C done 04/15/24: 6.3% EKG done 04/14/24- reviewed, not repeated in PAT- see below for results 2) HTN/HLD No current medications ASA 81mg- no hx of cardiac stents or CVA- to hold Per PAT protocol BP Readings from Last 3 Encounters: 04/27/24 125/75 04/20/24 135/81 05/23/23 110/80 3) Type 2 DM Alogliptin, lantus insulin, humalog insulin BS ranging 120-260 Informed that BS needs to be <250 DOS Last HBA1C 04/15/24- see below 4) Neuropathy/paraplegia/chronic pain Oxycodone, lyrica, flexeril prn Follows with pain management 5) Tobacco use 4-5 cigarettes per day Smoking cessation encouraged Instructed to avoid tobacco products for 24 hours prior to planned procedure Visit Type: Pre-Admission Testing Visit Labs Ordered: YES - PER PAT PROTOCOL Sleep Referral Ordered: NO - NEGATIVE SCREEN PER SLEEP REFERRAL PROTOCOL Total time spent (which include face to face and non face to face encounters) : 30 minutes Toxic drug monitoring/narrow therapeutic index drug monitoring : # Drug name : n/a # Route administered : n/a # Method of monitoring : n/a PAT Protocol referenced includes: 1. Anesthesia Lab Protocol Orders 2. Perioperative Cardiovascular Risk Assessment 3. Anesthesia Assessment 4. Pain Assessment and Acute Pain Service Consult (if appropriate) 5. Medical Clearance/Consult from Internal Medicine (IMS) 6. Shower/Wash Order (for designated surgeries) 7. WEST Screen and Sleep Clinic Referral (if appropriate) Patient did not name a surrogate decision-maker or provide an advance care plan History Of Present Illness: 63 y.o. male who we are asked to see/evaluate by Dr. Patel for pre-operative evaluation prior to above procedure. Recent hospitalization for septic shock due to UTI and bacteremia. Was discharged to SNF on 04/20/24 for continued management. Currently asymptomatic without fever or chills. Continues with outpatient IV antibiotics through PICC line for 2 more days. Denies prior problems with anesthesia. No [facility] problems with anesthesia Denies c/o chest pain, dizziness, sob, syncope, palpitations, tachycardia, cough, wheezing, nvd, fever or chills Wheelchair bound (paraplegia)- No chest pain or sob with normal activity(upper body activity) Do you have a history of chronic opioid use? oxycodone per pain management ? Denies history of [place], CAD, CHF, CVA, seizures, asthma/copd, WEST, PE/DVT Past Medical History: Past Medical History: No date: Abnormal posture No date: Abscess, perineum No date: Anemia No date: BPH (benign prostatic hyperplasia) No date: Chronic back pain No date: Hematuria No date: Hip sprain No date: Hyperlipidemia No date: Hypertension No date: Major depressive disorder, single episode, unspecified No date: MRSA (methicillin resistant staph aureus) culture positive Comment: spine 2022 No date: Muscle wasting and atrophy, not elsewhere classified, left lower leg No date: Muscle weakness (generalized) No date: Neuropathy No date: Obstructive and reflux uropathy, unspecified No date: Osteoarthritis No date: Other abnormalities of gait and mobility No date: Other reduced mobility No date: Paraplegia (HCC) No date: Sciatica No date: Spinal stenosis of lumbar region with neurogenic claudication No date: Type 2 diabetes mellitus without complication ([facility]) (HCC) No date: Urinary calculus, unspecified No date: UTI (urinary tract infection) Past Surgical History: Past Surgical History: No date: ANKLE SURGERY; Right Comment: He has a titanium plate to the right ankle No date: KNEE SURGERY; Left Comment: ACL No date: KNEE SURGERY; Left Comment: removal of screw 10/24/2020: LAMINECTOMY; Left Comment: LEFT BILATERAL L2-3-4-5 DECOMPRESSION performed by Opal Vigil MD at [facility] [place] No date: ORTHOPEDIC SURGERY; Right Comment: removal of hardware ankle 04/14/2024: US PLACE URETAL STENT PERC PRE-EXIST TRACT S&I (HISTORICAL); Bilateral Comment: Dr. Patel/Bashir Medications Prior to Admission: Prior to Admission medications Medication Sig Start Date End Date Taking? Authorizing Provider acetaminophen (Tylenol) 325 MG tablet Take by mouth. Historical Provider, acetic acid 0.25 % irrigation 12/12/23 Historical Provider, alogliptin (Nesina) 25 MG tablet 12/09/23 Historical Provider, aspirin 81 MG EC tablet Take 81 mg by mouth daily. Historical Provider, bisacodyl (Dulcolax) 5 MG EC tablet Take 5 mg by mouth Daily as needed for constipation. Do not crush, chew, or split. Historical Provider, bisacodyl (Dulcolax) 5 mg split suppository Insert into the rectum. Historical Provider, clotrimazole-betamethasone (Lotrisone) cream 11/17/23 Historical Provider, cyclobenzaprine (Flexeril) 10 MG tablet Take 10 mg by mouth 3 times daily as needed for muscle spasms. 12/17/23 Historical Provider, docusate sodium (Colace) 100 MG tablet Take 100 mg by mouth 2 times daily. Historical Provider, ERTAPENEM SODIUM IV Infuse 1 g into a venous catheter Every 24 hours. 04/19/24 04/30/24 Historical Provider, ferrous sulfate 325 (65 Fe) MG tablet Take 325 mg by mouth daily (with breakfast). Historical Provider, Hypromellose (Pure & Gentle Lubricant) 0.3 % solution Administer 1 drop into affected eye(s) if needed. Historical Provider, insulin glargine (Lantus) 100 UNIT/ML pen Inject 45 Units under the skin. 04/28/23 Historical Provider, Insulin Lispro (Humalog) 100 UNIT/ML solution injection Inject 0-28 Units under the skin. 04/28/23 Historical Provider, mirtazapine (Remeron) 7.5 MG tablet 12/20/23 Historical Provider, naloxone (Narcan) 4 mg/0.1 mL nasal spray 04/29/23 Historical Provider, oxyCODONE (Roxicodone) 15 MG immediate release tablet Take 1 tablet (15 mg) by mouth 4 times daily as needed (chronic pain) for up to 3 days. 04/20/24 04/23/24 Otis Mckenzie DO polyethylene glycol, PEG, 3350 (Miralax) 17 g packet Take 17 g by mouth in the morning and 17 g in the evening. 04/28/23 Historical Provider, potassium chloride CR (Klor-Con M20) 20 MEQ ER tablet 04/12/23 Historical Provider, pregabalin (Lyrica) 200 MG capsule Take 1 capsule (200 mg) by mouth 3 times daily for 7 days. 04/20/24 04/27/24 Otis Mckenzie DO tamsulosin (Flomax) 0.4 MG 24 hr capsule 11/30/23 Historical Provider, CHRONIC NARCOTIC USE: Yes, oxycodone per pain management Allergies: Patient has no known allergies. If patient has opioid allergy, is it okay to take Acetaminophen: Yes Social History: TOBACCO: reports that he has been smoking cigarettes. He started smoking about 46 years ago. He has a 21.1 pack-year smoking history. He has never used smokeless tobacco. ETOH: reports no history of alcohol use. Social History Substance and Sexual Activity Drug Use No Family History: No family history on file. REVIEW OF SYSTEMS: Review of Systems Constitutional: Negative for chills and fever. HENT: Negative for trouble swallowing. Respiratory: Negative for cough and shortness of breath. Cardiovascular: Negative for chest pain. Gastrointestinal: Negative for abdominal pain. Physical Exam: Physical Exam HENT: Head: Normocephalic. Mouth/Throat: Mouth: Mucous membranes are moist. Pharynx: Oropharynx is clear. Eyes: Pupils: Pupils are equal, round, and reactive to light. Cardiovascular: Rate and Rhythm: Normal rate and regular rhythm. Pulmonary: Effort: Pulmonary effort is normal. Breath sounds: Normal breath sounds. Musculoskeletal: General: Normal range of motion. Skin: General: Skin is warm and dry. Neurological: Mental Status: He is alert and oriented to person, place, and time. Vitals: Vitals Value Taken Time BP 125/75 04/27/24 1426 Temp 36.9 C (98.5 F) 04/27/24 1426 Pulse 84 04/27/24 1426 Resp 16 04/27/24 1426 SpO2 97 % 04/27/24 1426 Labs: Lab Results Component Value Date WBC 6.4 04/20/2024 HGB 11.3 (L) 04/20/2024 HCT 34.8 (L) 04/20/2024 MCV 94.1 04/20/2024 PLT 121 (L) 04/20/2024 Lab Results Component Value Date NA 138 04/20/2024 K 3.8 04/20/2024 CL 108 (H) 04/20/2024 CO2 23 04/20/2024 BUN 14 04/20/2024 CREATININE 0.44 (L) 04/20/2024 GLUCOSE 284 (H) 04/20/2024 CALCIUM 7.6 (L) 04/20/2024 PROT 5.6 (L) 04/20/2024 ALKPHOS 94 04/20/2024 AST 19 04/20/2024 ALT 15 04/20/2024 EGFR >90.0 04/20/2024 Talha's Simple Cardiac Risk Index: TALHA'S SIMPLE CARDIAC RISK SCORE: 1 Interpretation: 0 Points Class I 0.5% 1 Point Class II 1.3% 2 Points Class III 3.6% 3+ Points Class IV 9.1% PAT Pain Score: Pain Score: 7 Postop Pain Management Plan (Pain consult ordered?): Pain consult not indicated at this time ? EKG: Encounter Date: 04/14/24 ECG 12 lead Result Value Heart Rate 75 QRSD Interval 96 QT Interval 426 QTC Interval 477 P [place] 10 QRS [place] 28 T Wave [place] 28 ND Interval 159 Impression Sinus rhythm Electronically Signed On 04-20-2024 15:22:00 EDT by Jax Wiggins ECHO and EF:None on file METS __Wheelchair bound (paraplegia)- No chest pain or sob with normal activity (upper body activities) Electronically signed by: Radha Lucas APRN - [facility] Date: 04/27/2024 at 3:18 PM [employer] Phone: 05-05-2024 History and physical note Images from the original note were not included. H&P Update Patient's History and Physical from 04/27/24 was reviewed. Patient examined. There has been no change. Impression: bilateral ureteral calculus bladder calculus Plan: : cp laser bladder stone bilateral ureteroscopy laser lithotripsy bilateral stent change : Electronically signed by Joan Patel MD 05/05/24 1:20 PM Source Note - Radha Lucas APRN - DOCUMENT MANAGEMENT TECHNICIAN - 04/27/2024 2:00 PM EDT Images from the original note were not included. Comprehensive Pre Surgical History and Physical ? Name: Anmol Reynolds : 1960 (Age-63 y.o.) Date of Service: Pt seen/examined on 04/27/2024 Procedure Information Date/Time: 05/05/24 1230 Procedures: CYSTOSCOPY (Urethra) - 120 MINS POSSIBLE CYSTOLITHOLAPAXY (Urethra) BILATERAL URETEROSCOPY ASTRID LASER LITHOTRIPSY (Bilateral: Urethra) BILATERAL URETERAL STENT CHANGE (Bilateral: Urethra) Location: [facility] OR [address] [place] [address] Operating Room Surgeons: Joan Patel MD Chief Complaint: Calculus of ureter [N20.1] ASSESSMENT/PLAN: Patient is considered intermediate risk for this intermediate level 1 risk procedure/surgery 1) Calculus of ureter [N20.1] - Managed per surgery BMP, CBC per PAT protocol A1C done 04/15/24: 6.3% EKG done 04/14/24- reviewed, not repeated in PAT- see below for results 2) HTN/HLD No current medications ASA 81mg- no hx of cardiac stents or CVA- to hold Per PAT protocol BP Readings from Last 3 Encounters: 04/27/24 125/75 04/20/24 135/81 05/23/23 110/80 3) Type 2 DM Alogliptin, lantus insulin, humalog insulin BS ranging 120-260 Informed that BS needs to be <250 DOS Last HBA1C 04/15/24- see below 4) Neuropathy/paraplegia/chronic pain Oxycodone, lyrica, flexeril prn Follows with pain management 5) Tobacco use 4-5 cigarettes per day Smoking cessation encouraged Instructed to avoid tobacco products for 24 hours prior to planned procedure Visit Type: Pre-Admission Testing Visit Labs Ordered: YES - PER PAT PROTOCOL Sleep Referral Ordered: NO - NEGATIVE SCREEN PER SLEEP REFERRAL PROTOCOL Total time spent (which include face to face and non face to face encounters) : 30 minutes Toxic drug monitoring/narrow therapeutic index drug monitoring : # Drug name : n/a # Route administered : n/a # Method of monitoring : n/a PAT Protocol referenced includes: 1. Anesthesia Lab Protocol Orders 2. Perioperative Cardiovascular Risk Assessment 3. Anesthesia Assessment 4. Pain Assessment and Acute Pain Service Consult (if appropriate) 5. Medical Clearance/Consult from Internal Medicine (IMS) 6. Shower/Wash Order (for designated surgeries) 7. WEST Screen and Sleep Clinic Referral (if appropriate) Patient did not name a surrogate decision-maker or provide an advance care plan History Of Present Illness: 63 y.o. male who we are asked to see/evaluate by Dr. Patel for pre-operative evaluation prior to above procedure. Recent hospitalization for septic shock due to UTI and bacteremia. Was discharged to SNF on 04/20/24 for continued management. Currently asymptomatic without fever or chills. Continues with outpatient IV antibiotics through PICC line for 2 more days. Denies prior problems with anesthesia. No [facility] problems with anesthesia Denies c/o chest pain, dizziness, sob, syncope, palpitations, tachycardia, cough, wheezing, nvd, fever or chills Wheelchair bound (paraplegia)- No chest pain or sob with normal activity(upper body activity) Do you have a history of chronic opioid use? oxycodone per pain management ? Denies history of [place], CAD, CHF, CVA, seizures, asthma/copd, [place], PE/DVT Past Medical History: Past Medical History: No date: Abnormal posture No date: Abscess, perineum No date: Anemia No date: BPH (benign prostatic hyperplasia) No date: Chronic back pain No date: Hematuria No date: Hip sprain No date: Hyperlipidemia No date: Hypertension No date: Major depressive disorder, single episode, unspecified No date: MRSA (methicillin resistant staph aureus) culture positive Comment: spine 2021 No date: Muscle wasting and atrophy, not elsewhere classified, left lower leg No date: Muscle weakness (generalized) No date: Neuropathy No date: Obstructive and reflux uropathy, unspecified No date: Osteoarthritis No date: Other abnormalities of gait and mobility No date: Other reduced mobility No date: Paraplegia (HCC) No date: Sciatica No date: Spinal stenosis of lumbar region with neurogenic claudication No date: Type 2 diabetes mellitus without complication ([facility]) (HCC) No date: Urinary calculus, unspecified No date: UTI (urinary tract infection) Past Surgical History: Past Surgical History: No date: ANKLE SURGERY; Right Comment: He has a titanium plate to the right ankle No date: KNEE SURGERY; Left Comment: ACL No date: KNEE SURGERY; Left Comment: removal of screw 10/24/2020: LAMINECTOMY; Left Comment: LEFT BILATERAL L2-3-4-5 DECOMPRESSION performed by Opal Vigil MD at [facility] OR No date: ORTHOPEDIC SURGERY; Right Comment: removal of hardware ankle 04/14/2024: US PLACE URETAL STENT PERC PRE-EXIST TRACT S&I (HISTORICAL); Bilateral Comment: Dr. Patel/Bashir Medications Prior to Admission: Prior to Admission medications Medication Sig Start Date End Date Taking? Authorizing Provider acetaminophen (Tylenol) 325 MG tablet Take by mouth. Historical Provider, acetic acid 0.25 % irrigation 12/12/23 Historical Provider, alogliptin (Nesina) 25 MG tablet 12/09/23 Historical Provider, aspirin 81 MG EC tablet Take 81 mg by mouth daily. Historical Provider, bisacodyl (Dulcolax) 5 MG EC tablet Take 5 mg by mouth Daily as needed for constipation. Do not crush, chew, or split. Historical Provider, bisacodyl (Dulcolax) 5 mg split suppository Insert into the rectum. Historical Provider, clotrimazole-betamethasone (Lotrisone) cream 11/17/23 Historical Provider, cyclobenzaprine (Flexeril) 10 MG tablet Take 10 mg by mouth 3 times daily as needed for muscle spasms. 12/17/23 Historical Provider, docusate sodium (Colace) 100 MG tablet Take 100 mg by mouth 2 times daily. Historical Provider, ERTAPENEM SODIUM IV Infuse 1 g into a venous catheter Every 24 hours. 04/19/24 04/30/24 Historical Provider, ferrous sulfate 325 (65 Fe) MG tablet Take 325 mg by mouth daily (with breakfast). Historical Provider, Hypromellose (Pure & Gentle Lubricant) 0.3 % solution Administer 1 drop into affected eye(s) if needed. Historical Provider, insulin glargine (Lantus) 100 UNIT/ML pen Inject 45 Units under the skin. 04/28/23 Historical Provider, Insulin Lispro (Humalog) 100 UNIT/ML solution injection Inject 0-28 Units under the skin. 04/28/23 Historical Provider, mirtazapine (Remeron) 7.5 MG tablet 12/20/23 Historical Provider, naloxone (Narcan) 4 mg/0.1 mL nasal spray 04/29/23 Historical Provider, oxyCODONE (Roxicodone) 15 MG immediate release tablet Take 1 tablet (15 mg) by mouth 4 times daily as needed (chronic pain) for up to 3 days. 04/20/24 04/23/24 Otis Mckenzie, polyethylene glycol, PEG, 3350 (Miralax) 17 g packet Take 17 g by mouth in the morning and 17 g in the evening. 04/28/23 Historical Provider, potassium chloride CR (Klor-Con M20) 20 MEQ ER tablet 04/12/23 Historical Provider, pregabalin (Lyrica) 200 MG capsule Take 1 capsule (200 mg) by mouth 3 times daily for 7 days. 04/20/24 04/27/24 Otis Mckenzie, tamsulosin (Flomax) 0.4 MG 24 hr capsule 11/30/23 Historical Provider, CHRONIC NARCOTIC USE: Yes, oxycodone per pain management Allergies: Patient has no known allergies. If patient has opioid allergy, is it okay to take Acetaminophen: Yes Social History: TOBACCO: reports that he has been smoking cigarettes. He started smoking about 46 years ago. He has a 21.1 pack-year smoking history. He has never used smokeless tobacco. ETOH: reports no history of alcohol use. Social History Substance and Sexual Activity Drug Use No Family History: No family history on file. REVIEW OF SYSTEMS: Review of Systems Constitutional: Negative for chills and fever. HENT: Negative for trouble swallowing. Respiratory: Negative for cough and shortness of breath. Cardiovascular: Negative for chest pain. Gastrointestinal: Negative for abdominal pain. Physical Exam: Physical Exam HENT: Head: Normocephalic. Mouth/Throat: Mouth: Mucous membranes are moist. Pharynx: Oropharynx is clear. Eyes: Pupils: Pupils are equal, round, and reactive to light. Cardiovascular: Rate and Rhythm: Normal rate and regular rhythm. Pulmonary: Effort: Pulmonary effort is normal. Breath sounds: Normal breath sounds. Musculoskeletal: General: Normal range of motion. Skin: General: Skin is warm and dry. Neurological: Mental Status: He is alert and oriented to person, place, and time. Vitals: Vitals Value Taken Time BP 125/75 04/27/24 1426 Temp 36.9 C (98.5 F) 04/27/24 1426 Pulse 84 04/27/24 1426 Resp 16 04/27/24 1426 SpO2 97 % 04/27/24 1426 Labs: Lab Results Component Value Date WBC 6.4 04/20/2024 HGB 11.3 (L) 04/20/2024 HCT 34.8 (L) 04/20/2024 MCV 94.1 04/20/2024 PLT 121 (L) 04/20/2024 Lab Results Component Value Date NA 138 04/20/2024 K 3.8 04/20/2024 CL 108 (H) 04/20/2024 CO2 23 04/20/2024 BUN 14 04/20/2024 CREATININE 0.44 (L) 04/20/2024 GLUCOSE 284 (H) 04/20/2024 CALCIUM 7.6 (L) 04/20/2024 PROT 5.6 (L) 04/20/2024 ALKPHOS 94 04/20/2024 AST 19 04/20/2024 ALT 15 04/20/2024 EGFR >90.0 04/20/2024 Talha's Simple Cardiac Risk Index: TALHA'S SIMPLE CARDIAC RISK SCORE: 1 Interpretation: 0 Points Class I 0.5% 1 Point Class II 1.3% 2 Points Class III 3.6% 3+ Points Class IV 9.1% PAT Pain Score: Pain Score: 7 Postop Pain Management Plan (Pain consult ordered?): Pain consult not indicated at this time ? EKG: Encounter Date: 04/14/24 ECG 12 lead Result Value Heart Rate 75 QRSD Interval 96 QT Interval 426 QTC Interval 477 P [place] 10 QRS [place] 28 T Wave [place] 28 ND Interval 159 Impression Sinus rhythm Electronically Signed On 04-20-2024 15:22:00 EDT by Jax Wiggins ECHO and EF:None on file METS __Wheelchair bound (paraplegia)- No chest pain or sob with normal activity (upper body activities) Electronically signed by: Radha Lucas APRN - DOCUMENT MANAGEMENT TECHNICIAN Date: 04/27/2024 at 3:18 PM documented in this encounter [facility] 05-05-2024 Note H&P Update Patient's History and Physical from 04/27/24 was reviewed. Patient examined. There has been no change. Impression: bilateral ureteral calculus bladder calculus Plan: : cp laser bladder stone bilateral ureteroscopy laser lithotripsy bilateral stent change : Electronically signed by Joan Patel MD 05/05/24 1:20 PM [facility] 05-05-2024 Note Formatting of this n ote might be different from the original. Spoke with the nurse Lauren from the facility pt came from. The nurse confirmed that pt did not have anything to eat after midnight and only sips of water with morning meds. See MAR for meds. [facility] 05-05-2024 Note Formatting of this n ote might be different from the original. Spoke with the nurse Lauren from the facility pt came from. The nurse confirmed that pt did not have anything to eat after midnight and only sips of water with morning meds. See MAR for meds. [facility] 05-04-2024 Telephone encounter Note R/S patient for 06/14 at 8:30a, also contacted [facility] to confirm transportation [facility] 05-04-2024 Miscellaneous Notes R/S patient for 06/14 at 8:30a, also contacted [facility] to confirm [facility] Name of Caller: [facility] Contact Reason for Appointment: Reschedule 04/21/24 appointment Office Name: Interventional Pain Management documented in this encounter [facility] 05-04-2024 Telephone encounter Note Name of Caller: [facility] Contact Reason for Appointment: Reschedule 04/21/24 appointment Office Name: Interventional Pain Management [facility] 04-27-2024 Telephone encounter Note Call placed to pt. No answer no VM set up. No return calls from [facility]. Pt is scheduled for PAT today. [facility] 04-27-2024 Miscellaneous Notes Call placed to pt. No answer no VM set up. No return calls from [facility]. Pt is scheduled for PAT today. Call placed to pt to advise of SX information. No answer, unable to LVM. If pt calls back into office please advise of below information or transfer to me. Doctor: JORGE PAT (arrive 15 min early): 04/27 @2pm [facility] PAT instructions: Please bring photo ID, insurance card, list of all current medications Surgery: 05/05 @12:30 [facility] Surgery arrival time: 10:30am Surgery instructions: Nothing to eat after midnight. Can have clear liquids black coffee (no cream or dairy), tea, water, Sprite, apple juice, Gatorade (no reds or purples) up until arrival time. Medication instructions: Hold Aspirin, fish oil and over the counter vitamins 3 days prior to surgery Call placed to pt but no answer at this time. Pt does not have VM set up so unable to LVM. No MyChart set up. Will continue to reach out to pt. SURGERY SCHEDULING Surgeon: Dr. Joan Patel PROCEDURE: Cystoscopy, possible cystolitholapaxy, bilateral ureteroscopy, bilateral laser lithotripsy, bilateral ureteral stent change - Special request: Astrid ruano DIAGNOSIS: Bladder calculus, bilateral ureteral stones FACILITY: [facility] or [facility] DETAILS: OUTPT ANESTHESIA: GENERAL TIME REQUESTED: 2hr DATE REQUESTED: Must be minimum of 2 weeks from today due to infection SURGERY ORDERS: Already placed by Joe Hammer NP on 04/15/2024 POST OP FOLLOW UP: cysto stent removal 2 wks documented in this encounter [facility] 04-26-2024 Telephone encounter Note Called pt and discussed his MRI L spine results. He has SCI rehab follow up scheduled. Recommended Spine Surgery opinion. No change in clinical condition from last visit. Vaishali Pierre DO [facility] 04-26-2024 Miscellaneous Notes Called pt and discussed his MRI L spine results. He has SCI rehab follow up scheduled. Recommended Spine Surgery opinion. No change in clinical condition from last visit. Vaishali Pierre DO Called pt again. Staff at the SNF stated he was unable to come to the phone and asked for call back later in the day. aVishali Pierre DO Called pt and reached staff, but he was unable to come to the phone. Will try again tomorrow. Vaishali Pierre DO Called pt on his room number but unable to reach him or leave a message. I called nursing staff at the [place] where he lives and was able to leave a message with nursing regarding his MRI findings and that I would like to speak with him and recommendations to schedule visit with SCI rehab and spine surgery. Vaishali Pierre DO Telephoned [place] pt at dinner and medical receptionist states she cannot pull pt away from dinner. Called pt regarding his MRI, which showed: IMPRESSION: Acute-subacute sacral insufficiency fracture at S2. Postoperative and degenerative changes of the lumbar spine with linear granulation tissue at L2-3 and tethering of the cauda equina suggesting sequelae of chronic arachnoiditis. No evidence of osteomyelitis discitis or epidural abscess. He was currently out of the care home where he lives, but I was able to leave a message with the nursing staff that I would like to speak with him regarding these results. He needs to establish with [facility] spinal cord injury service for ongoing care in the SCI clinic as ordered last visit. I also ordered a spine surgery consultation for him due to the above findings.He does not have [employer] set up to message. Vaishali Pierre DO documented in this encounter [facility] 04-26-2024 Telephone encounter Note Called pt again. Staff at the SNF stated he was unable to come to the phone and asked for call back later in the day. Vaishali Pierre DO [facility] [place] 04-25-2024 Telephone encounter Note Called pt and reached staff, but he was unable to come to the phone. Will try again tomorrow. Vaishali Pierre DO [facility] 04-25-2024 Telephone encounter Note Call placed to pt to advise of SX information. No answer, unable to LVM. If pt calls back into office please advise of below information or transfer to me. Doctor: JORGE OLIVA (arrive 15 min early): 04/27 @2pm [facility] PAT instructions: Please bring photo ID, insurance card, list of all current medications Surgery: 05/05 @12:30 [facility] Surgery arrival time: 10:30am Surgery instructions: Nothing to eat after midnight. Can have clear liquids black coffee (no cream or dairy), tea, water, Sprite, apple juice, Gatorade (no reds or purples) up until arrival time. Medication instructions: Hold Aspirin, fish oil and over the counter vitamins 3 days prior to surgery [facility] 04-25-2024 Miscellaneous Notes Call placed to pt to advise of SX information. No answer, unable to LVM. If pt calls back into office please advise of below information or transfer to me. Doctor: JORGE PAT (arrive 15 min early): 04/27 @2pm [facility] PAT instructions: Please bring photo ID, insurance card, list of all current medications Surgery: 05/05 @12:30 [facility] Surgery arrival time: 10:30am Surgery instructions: Nothing to eat after midnight. Can have clear liquids black coffee (no cream or dairy), tea, water, Sprite, apple juice, Gatorade (no reds or purples) up until arrival time. Medication instructions: Hold Aspirin, fish oil and over the counter vitamins 3 days prior to surgery Call placed to pt but no answer at this time. Pt does not have VM set up so unable to LVM. No MyChart set up. Will continue to reach out to pt. SURGERY SCHEDULING Surgeon: Dr. Joan Patel PROCEDURE: Cystoscopy, possible cystolitholapaxy, bilateral ureteroscopy, bilateral laser lithotripsy, bilateral ureteral stent change - Special request: Astrid laser DIAGNOSIS: Bladder calculus, bilateral ureteral stones FACILITY: [facility] or [facility] DETAILS: OUTPT ANESTHESIA: GENERAL TIME REQUESTED: 2hr DATE REQUESTED: Must be minimum of 2 weeks from today due to infection SURGERY ORDERS: Already placed by Joe Hammer NP on 04/15/2024 POST OP FOLLOW UP: cysto stent removal 2 wks documented in this encounter [facility] 04-21-2024 Telephone encounter Note Call placed to pt but no answer at this time. Pt does not have VM set up so unable to LVM. No MyChart set up. Will continue to reach out to pt. [facility] 04-20-2024 Miscellaneous Notes Dc to [facility] this evening at 6:30. [facility] messaged the facility with dc time and left a voicemail message for patients brother with dc time and arrangements. Re faxed opat to [phone]. Discharge med list transmitted to return back [facility] per [facility] request. Images from the original note were not included. Care Management Progress Note Chart reviewed. Patient remains on . Discussed patient in rounds. Noted discharge order. Noted patient received PICC placement today. Faxed opat for Ertapenem IV to [phone]. [employer] tasked to send final updates to [facility]. SW tasked to arrange transportation today when ready. Patient will need covid test resulted before leaving hospital. TCC section of ADELINE completed. DC plan: return to [facility], no auth needed. Bed hold. Discharge Milestones and Delays Expected date/time: 04/20/2024 Medically ready since: 04/20/2024 Disposition: [facility] Facility Transport status: No current request Discharge Milestones Place discharge order Complete med reconciliation Case mgmt discharge readiness Clinical Stability Diagnostic Workup Imaging Results Patient Education Complete Expected Discharge History Expected Date/Time Set By Reviewed At 04/20/2024 Otis Mckenzie DO 04/20/2024 11:42 AM 04/18- From [facility]. 04/20- Getting a picc today for IV antibiotics, [facility]." 04/20/2024 LINDSAY Gallardo 04/20/2024 9:34 AM 04/20/2024 LINDSAY Gallardo 04/19/2024 9:13 AM 04/18- From [facility]." 04/20/2024 Chrissie Rodrigues RN 04/19/2024 7:55 AM 04/20/2024 Chrissie Rodrigues RN 04/18/2024 7:54 AM 04/17/2024 Isabel Kirby RN 04/15/2024 9:16 AM 04/16/2024 Ernesto Dickens MD 04/14/2024 10:37 PM 04/16/2024 Ernesto Dickens MD 04/14/2024 7:38 PM Length of Stay (Days): 6 GMLOS: 9.9 Problem: Knowledge Deficit Goal: Patient/family/caregiver demonstrates understanding of disease process, treatment plan, medications, and discharge instructions Outcome: Progressing Problem: Potential for Compromised Skin Integrity Goal: Skin Integrity is Maintained or Improved Outcome: Progressing Goal: Nutritional status is improving Outcome: Progressing Problem: Urinary Incontinence Goal: Perineal skin integrity is maintained or improved Outcome: Progressing Problem: Potential for Falls Goal: I will remain free of falls Outcome: Progressing Problem: Discharge Barriers Goal: My discharge needs are met Outcome: Progressing Problem: Problem Interventions Goal: Assess Nutritional Intake Outcome: Progressing Goal: Dietary Supplements Outcome: Progressing Goal: Promote nutritional intake Outcome: Progressing The patient is Moderately Stable - Low risk of patient condition declining or worsening The patient's goals for the shift include rest The clinical goals for the shift include pain control Over the shift, the patient did not make progress toward the following goals. Barriers to progression include . Recommendations to address these barriers include . The patient is Moderately Stable - Low risk of patient condition declining or worsening The patient's goals for the shift include rest The clinical goals for the shift include rest Over the shift, the patient did not make progress toward the following goals. Barriers to progression include frequent assessment. Recommendations to address these barriers include cluster care. Sent updated notes to return back to [facility] via [facility] per [facility] request. Await review and response regarding ability to accept. TCC notified. The patient is Moderately Stable - Low risk of patient condition declining or worsening The patient's goals for the shift include The clinical goals for the shift include Over the shift, the patient did not make progress toward the following goals. Barriers to progression include none. Recommendations to address these barriers include none. Images from the original note were not included. Care Management Progress Note Pt remains on 2E. Pt is a paraplegic. Urology consulted, ID following. Receiving IV Merrem, Diflucan, and Mag Sulfate. Has chronic santana in place. Pt is from [facility]. Tasked [employer] to send updated clinicals to facility. Pt is a bedhold, no auth required to return. Will however need a covid test before returning to facility. Discharge plan is [facility] when medically ready. bench manager to follow and assist as needed. Discharge Milestones and Delays Expected date/time: 04/20/[address] discharge order Complete med reconciliation Case mgmt discharge readiness Clinical Stability Diagnostic Workup Patient Education Complete Expected Discharge History Expected Date/Time Set By Reviewed At 04/20/2024 Chrissie Rodrigues RN 04/18/2024 7:54 AM 04/17/2024 Isabel Kirby RN 04/15/2024 9:16 AM 04/16/2024 Ernesto Dickens MD 04/14/2024 10:37 PM 04/16/2024 Ernesto Dickens MD 04/14/2024 7:38 PM Length of Stay (Days): 4 GMLOS: No GMLOS Documented The patient is Moderately Stable - Low risk of patient condition declining or worsening The patient's goals for the shift include rest The clinical goals for the shift include safety Over the shift, the patient did not make progress toward the following goals. Barriers to progression include pt not able to follow his plan of care. Recommendations to address these barriers include educating pt and his caregivers about his plan of care. The patient is Moderately Stable - Low risk of patient condition declining or worsening The patient's goals for the shift include pain control and rest. The clinical goals for the shift include pain control and safety. Problem: Knowledge Deficit Goal: Patient/family/caregiver demonstrates understanding of disease process, treatment plan, medications, and discharge instructions Outcome: Progressing Problem: Potential for Compromised Skin Integrity Goal: Skin Integrity is Maintained or Improved Outcome: Progressing Goal: Nutritional status is improving Outcome: Progressing Problem: Urinary Incontinence Goal: Perineal skin integrity is maintained or improved Outcome: Progressing Problem: Potential for Falls Goal: I will remain free of falls Outcome: Progressing Problem: Discharge Barriers Goal: My discharge needs are met Outcome: Progressing Problem: Problem Interventions Goal: Assess Nutritional Intake Outcome: Progressing Goal: Dietary Supplements Outcome: Progressing Goal: Promote nutritional intake Outcome: Progressing The patient is Moderately Stable - Low risk of patient condition declining or worsening The patient's goals for the shift include Safety and comfort The clinical goals for the shift include Progressing towards discharge Transferred out of ICU. chronic paraplegia, chronic santana for neurogenic bladder. came in with obstructed santana. urosepsis and septic shock. urology put in ureteral stents. there's still a big bladder stone vs fungus ball (per Dr. Patel). Proteus bacteremia. on ertapenem and fluconazole. ID following. Nor normotensive. on room air. will go back to OR with urology likely on Thursday, but haven't received confirmation Problem: Knowledge Deficit Goal: Patient/family/caregiver demonstrates understanding of disease process, treatment plan, medications, and discharge instructions Outcome: Progressing Flowsheets (Taken 04/15/2024 1616) Patient/family/caregiver demonstrates understanding of disease process, treatment plan, medications, and discharge instructions: Complete learning assessment and assess knowledge base The patient is Moderately Unstable - Medium risk of patient condition declining or worsening The patient's goals for the shift include The clinical goals for the shift include Over the shift, the patient did not make progress toward the following goals. Barriers to progression include . Recommendations to address these barriers include . Care Managment Initial Assessment Date: 04/15/2024 Patient Name: Anmol Reynolds : 1960 Patient Information Source of Information: Patient Name/Contact Information: Ronald Reyonlds [phone] brother and daughter Sumi Reynolds Cognition/Language: WFL - Within Functional Limits Permission given to speak with patient pharmaceutical sales representative/caregiver as indicated: Yes Confirmation of Payer with patient/family: Yes Payer Name: medicare and medicaid [place]: No Confirmation of Primary Care Physician: Confirmed PCP Name: house doctor at [facility]-Dr. Dupont Seen in last 2 years?: Yes Primary Caregiver: Other (Comment) If assistance needed, confirmed caregiver ready, willing and able to care for patient at discharge: Yes Confirmed with: staff at [facility] Living Arrangements Current Residence: (ecf) Number of Floors 1 Number of Entry Steps: (level) Bed/Bath Levels: Both first floor Facility: [facility] Facility Name: [facility] Plan to Return: Yes Lives with: (ecf) Support Systems: Family members, Comments (Other) (facility) Activities of Daily Living Ambulation: Total Care (everett lift to ) Bathing/Dressing: Total Care Elimination/Continence/Toileting: Total Care Feeding: Assistance Who Assists with Activities of Daily Living: care home staff Instrumental Activities of Daily Living Prescription Coverage: Yes Pharmacy Used: [facility] Medication Management: Medication dispenser Who assists with medication securing and setup?: [facility] Transportation/Shopping: Assistance Provider Transportation/Shopping Assistance Provider Name: facility Transportation Mode: Payer provided transport service Needs Assistance with Transportation at Discharge: Yes Meal Preparation: Assistance Provider Meal Prep Assistance Provider Name: facility Laundry/Cleaning: Assistance Provider Laundry/Cleaning Assistance Provider Name: [facility] Finances/Bill Paying: Assistance Provider Finances/Bill Payer Assistance Provider Name: [facility] Communication: Independent, Emergency Call System Types of Care Services/Equipment Utilized Care Services: Dialysis Type: NA Durable Medical Equipment: Wheelchair (standard or power) Patient's Goal/Discharge Plan Patient expects to be discharged to: return to [facility] Discharge Planning Actions: Continue to follow Patient's Choice Rights and [employer] and Collaborative Relationships Disclosed as Indicated for Post-Acute Care: Yes Interdisciplinary Team Engagement: Social Work Referral for: Additional Information: Inpatient status from [facility] with sepsis. Urology consulted due to bilateral ureteral obstructing calculi. . OR yesterday. For cystoscopy, bilateral ureteral stent placement placement and santana catheter change. BC obtained and are positive. Urine cultures obtained and are pending. ID following. Is receiving iv antibiotic therapy. Levophed drip weaned off this afternoon. Met with patient. Introduced myself and explained my role. Patient with history of paraplegia and states has been at [facility] for a year and wishes to return upon discharge. Tasked [employer] to [facility]. He is everett lift to at facility. Will need to monitor for antibiotic needs upon discharge. Did call facility to obtain daughter's phone number for patient and updated primary care nurse with this information. .. Isabel Kirby RN Referral placed to return back to [facility] via [facility] per TCC request. Await review and response regarding ability to accept. TCC notified. Images from the original note were not included. 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 Findings: He is a 63-year-old paraplegic care home resident with a chronic Santana catheter. He had laser lithotripsy in 2022. He presented to the emergency room today with a clogged Santana catheter. CT scan subsequently shows bilateral ureteral obstruction with bilateral hydronephrosis. He was hypotensive in the emergency room. He is brought to the operating room for emergent stent placement. He has early urethral erosion. Large soft tissue mass within the bladder read on CT scan was a large bladder stone but is likely a fungus ball. Some of this material was irrigated out of the bladder with the Nakita syringe but in light of his urosepsis no further attempts were made to remove this mass to avoid the risk of further seeding of the bloodstream. The sensor wire went up the left ureter easily and a 6 x 28 stent was passed. The wire would not pass on the right side. Open-ended cath was passed over the wire and a large filling defect was noted in the right ureter. The wire was ultimately able to be passed up to the kidney and a 6 x 26 stent was passed. 22 Slovenian coud catheter was placed to straight drain. INDICATIONS: Anmol Reynolds , is a 63 y.o. male who presents with urosepsis bilateral ureteral obstruction. Anmol Reynolds presents for cystoscopy stent placement. The risks benefits and alternatives were explained and the patient wishes to proceed. PROCEDURE: Anmol Reynolds Was brought to the operating room. Thorough time out was performed and everyone present was in agreement. Patient was placed on OR table. Anesthesia and lines were maintained by the anesthesia team. After general anesthesia was induced Santana catheter was removed he was prepped and draped placed in lithotomy position. Cystoscope was inserted to the urethra. The bladder was entered. Nakita syringe was used to irrigate out as much of the floating debris as possible. There were no obvious bladder tumors. But there was a large organized free-floating soft tissue mass within the bladder. The left ureteral orifice could be identified. The sensor wire was passed up to the kidney. A 6 x 20 double-J stent was passed over the wire under fluoroscopic guidance. Good coil was noted in the bladder and in the kidney. The right ureteral orifice was more difficult to visualize but with the help of an open-ended catheter was able to be cannulated. The wire would only passed to the mid ureter. The open-ended cath was passed over the wire and it would not advance. Contrast was injected and there was a long filling defect within the ureter. 0.35 Glidewire was passed up to the kidney and the open-ended cath was advanced into the kidney. Contrast was injected to confirm the position. And the sensor wire was then placed. The open-ended catheter was removed and a 7 x 26 double-J stent was passed over the wire. Good coil was noted in the kidney and in the bladder. The bladder was left full. 22 Slovenian coud catheter was placed into the bladder. He was awakened and transferred to the recovery room. ICU was consulted for admission due to the hypotension and need for pressors during the case as well as the lactic acidosis. Joan Patel MD 04/14/24 10:49 PM documented in this encounter [facility] 04-20-2024 Hospital course Narrative Images from the original note were not included. Hospitalist Discharge Summary Anmol Reynolds : 1960 Admit date: 04/14/2024 Discharge date: 04/20/2024 Admitting Physician: Lauryn Hooker MD Primary Care Physician: AMBROSIO MONROY DO Visit Status: admission Code Status: Full Code Discharge Diagnoses: Septic shock due to UTI and bacteremia Bacteremia with proteus, providencia, morganella Complicated UTI, providencia Urinary obstruction 2/2 bilateral calculi with bilateral hydronephrosis Large soft tissue mass in bladder MK Hypokalemia Hypomagnesemia Metabolic and lactic acidosis Normocytic anemia Thrombocytopenia DM type 2 with hyperglycemia Chronic paraplegia and neurogenic bladder requiring chronic indwelling urinary catheter Malnutrition, unspecified. Hospital Course: Patient with septic shock with complicated UTI and bacteremia, admitted to ICU, found to have positive bacteremia with proteus, providencia, morganella, UC positive for providencia. Urology on consult, patient had urinary obstruction with bilateral calculi and bilateral hydronephrosis. S/p cystoscopy, pyelogram, bilateral ureteral stent placement on 04/20/24. Patient on abx per ID recs. PICC placed on 04/20/24. Patient recommended for ertapenem (1st dose at 9:30 AM on 04/20) and continue for 2 weeks from -neg cx date (04/16) through 04/30/24. Surveillance blood cx x2 on 05/06/24. Patient to follow up with urology outpatient for ureteral stent management. Patient to follow up with PCP, wound clinic, urology outpatient in 1-2 weeks. Patient discharged to SNF in improved and stable condition on 04/20/24. Consults: IP CONSULT TO UROLOGY IP CONSULT TO CASE MANAGEMENT IP CONSULT TO SOCIAL WORK PHARMACY TO DOSE VANCO IP WOUND CARE NURSE CONSULT TO EVAL IP CONSULT TO INFECTIOUS DISEASES IP CONSULT TO BAG PRINTER Discharge Instructions: Diet: Adult diet Regular; 5 carb choices (75 gm/meal) Activity: as tolerated Recommended Outpatient Tests: Disposition: Patient discharged in stable condition to [facility]: CBC: Recent Labs 04/18/2471104/19/2442704/20/24358 WBC 8.4 9.2 6.4 RBC 3.95* 3.79* 3.70* HGB 12.1* 11.6* 11.3* HCT 36.6* 35.0* 34.8* MCV 92.7 92.3 94.1 RDW 15.0 14.8 14.8 PLT 79* 88* 121* BMP: Recent Labs 04/18/2471104/19/2442704/20/24358 NA 140 138 138 K 3.1* 3.5 3.8 CL 105 107 108* CO2 27 26 23 BUN 15 14 14 CREATININE 0.51* 0.44* 0.44* GLUCOSE 74 153* 284* CALCIUM 7.8* 7.9* 7.6* ANIONGAP 7 5 6 LIVER PROFILE: Recent Labs 04/18/2471104/19/2442704/20/24358 AST 18 19 19 ALT 18 16 15 BILITOT 0.8 0.6 0.4 ALKPHOS 123 119 94 PROT 6.0* 6.0* 5.6* PT/INR: No results for input(s): "PROTIME", "INR" in the last 72 hours. CARDIAC ENZYMES: No results for input(s): "TROPONINI" in the last 72 hours. Procalcitonin: No results found for: "PROCAL" COVID-19 PCR: No results for input(s): "COVID19" in the last 72 hours. Vitals: BP 135/81 (BP Location: Left arm, Patient Position: Sitting) Pulse 84 Temp 36.6 C (97.8 F) (Temporal) Resp 18 Ht 6' 3" (1.905 m) Wt 212 lb 15.4 oz (96.6 kg) SpO2 97% BMI 26.62 kg/m Pulse Ox: SpO2 Av.4 % Min: 91 % Max: 97 % Supplemental O2: O2 Flow Rate (L/min): 2 L/min General appearance: No apparent distress, appears stated age and cooperative with exam Respiratory: CTA BL, no wheezing. Cardiovascular: Regular rate and rhythm with no murmur Abdomen: Soft, non-tender, non-distended Skin: Skin color, texture, turgor normal. No rashes or lesions. Distal pulses intact in BL LE, 1+ BL LE edema present. Neurologic: BL LE paraplegia, otherwise no gross focal deficits Discharge Medications: Medication List CONTINUE taking these medications acetaminophen 325 MG tablet Commonly known as: Tylenol acetic acid 0.25 % irrigation alogliptin 25 MG tablet Commonly known as: Nesina aspirin 81 MG EC tablet * bisacodyl 5 MG EC tablet Commonly known as: Dulcolax * bisacodyl 5 mg split suppository Commonly known as: Dulcolax clotrimazole-betamethasone cream Commonly known as: Lotrisone cyclobenzaprine 10 MG tablet Commonly known as: Flexeril docusate sodium 100 MG tablet Commonly known as: Colace ferrous sulfate 325 (65 Fe) MG tablet insulin glargine 100 UNIT/ML pen Commonly known as: Lantus Insulin Lispro 100 UNIT/ML solution injection Commonly known as: Humalog mirtazapine 7.5 MG tablet Commonly known as: Remeron naloxone 4 mg/0.1 mL nasal spray Commonly known as: Narcan oxyCODONE 15 MG immediate release tablet Commonly known as: Roxicodone Take 1 tablet (15 mg) by mouth 4 times daily as needed (chronic pain) for up to 3 days. polyethylene glycol (PEG) 3350 17 g packet Commonly known as: Miralax potassium chloride CR 20 MEQ ER tablet Commonly known as: Klor-Con M20 pregabalin 200 MG capsule Commonly known as: Lyrica Take 1 capsule (200 mg) by mouth 3 times daily for 7 days. Pure & Gentle Lubricant 3 MG/ML solution Generic drug: Hypromellose tamsulosin 0.4 MG 24 hr capsule Commonly known as: Flomax * This list has 2 medication(s) that are the same as other medications prescribed for you. Read the directions carefully, and ask your doctor or other care provider to review them with you. Where to Get Your Medications You can get these medications from any pharmacy Bring a paper prescription for each of these medications oxyCODONE 15 MG immediate release tablet pregabalin 200 MG capsule Recommended Follow-up: PCP and wound care outpatient in 1-2 weeks. @[email or web address]@ Complexity of Follow up: [] Moderate Complexity: follow up within 7-14 calendar days (80863) [x] Severe Complexity: follow up within 7 calendar days (37361) Follow up Testing, Pending results or Referrals at Transitional Care Visit: [x] yes [] no Instructions to MA: Please call patient on day after discharge (must document patient contacted within 2 business days of discharge). Follow up questions for MA: 1. Did you get medications filled and taking them as instructed from discharge? 2. Are you following your discharge instructions from your hospital stay? 3. Please confirm patient is scheduled for a follow up appointment within the above time frame. Signed: Otis Mckenzie DO [facility] 04/20/2024, 11:42 AM Total time Spent on Discharge: 32 minutes documented in this encounter [facility] 04-20-2024 Hospital Discharge instructions Faby Maxwell RN - 04/20/2024 11:42 AM EDT Images from the original note were not included. Continuity of Care Form Patient Name: Anmol Reynolds : 1960 Admit date: 04/14/2024 Discharge date: 04/20/24 Code Status Order: Full Code Advance Directives: N Admitting Physician: Lauryn Hooker MD PCP: AMBROSIO MONROY DO Discharging Nurse: Discharging Hospital Unit/Room#: B2-254/B2-254 A Discharging Unit Emergency Contact: Extended Emergency Contact Information Primary Emergency Contact: GailRonald Mobile Relation: Sibling Secondary Emergency Contact: SUMI REYNOLDS Mobile Relation: Daughter Past Surgical History: Past Surgical History: Procedure Laterality Date ANKLE SURGERY Right He has a titanium plate to the right ankle KNEE SURGERY ACL LAMINECTOMY Left 10/24/2020 LEFT BILATERAL L2-3-4-5 DECOMPRESSION performed by Opal Vigil MD at [facility] OR ORTHOPEDIC SURGERY US PLACE URETAL STENT PERC PRE-EXIST TRACT S&I (HISTORICAL) Bilateral 04/14/2024 Dr. Patel/Bashir Immunization History: There is no immunization history on file for this patient. Active Problems: Medical Problems Problem List * (Principal) Septic shock (HCC) Hypertension Hyperglycemia Hip sprain Anxiety Pressure injury of coccygeal region, stage 3 (HCC) Nicotine use disorder Unspecified osteoarthritis, unspecified site Pilonidal cyst without abscess Diabetes mellitus without complication (CMS/HCC) (HCC) Lumbar radiculopathy Abnormal finding on EKG Other intervertebral disc displacement, lumbar region Lumbar stenosis with neurogenic claudication Spinal stenosis of lumbar region with neurogenic claudication Herniated nucleus pulposus, L5-S1, left Isolation/Infection: No active isolations No active infections Nurse Assessment: Last Vital Signs: BP 135/81 (BP Location: Left arm, Patient Position: Sitting) Pulse 84 Temp 36.6 C (97.8 F) (Temporal) Resp 18 Ht 6' 3" (1.905 m) Wt 212 lb 15.4 oz (96.6 kg) SpO2 97% BMI 26.62 kg/m Last documented pain score (0-10 scale): Last Weight: Wt Readings from Last 1 Encounters: 04/19/24 212 lb 15.4 oz (96.6 kg) Mental Status: ADELINE Patient Mental Status: oriented and alert IV Access: ADELINE IV Access: PICC - site: upper arm right, condition patent and no redness, insertion date: 04/20/24 Nursing Mobility/ADLs: Walking Total assistance Transfer Total assistance Bathing Total assistance Dressing Total assistance Toileting Total assistance Feeding Minimal assistance Chlorine Cells Operator Minimal assistance Med Delivery yes Wound Care Documentation and Therapy: Wound/Incision 04/14/24 Pressure Injury Sacrum (Active) Site Assessment Unable to assess 04/19/242039 [place]-Wound Assessment Clean;Dry;Intact 04/19/242039 Drainage Description Red 04/19/24 1651 Odor None 04/18/24 0328 Drainage Amount Scant 04/19/24 1651 Treatments Cleansed;Zinc - oxide paste 04/19/24 165 Primary Dressing Foam 04/19/24 165 Dressing Status Clean, dry & intact 04/19/242039 Number of days: 5 Wound/Incision 04/14/24 Foot Anterior;Right (Active) Wound Image 04/14/242257 Number of days: 5 Wound/Incision 04/14/24 Foot Anterior;Left (Active) Wound Image 07/11/24 2259 Number of days: 5 Elimination: Continence: Bowel: no Bladder: no Urinary Catheter: Last change date: 04/14 Colostomy/Ileostomy/Ileal Conduit: None Date of Last BM: 04/19 Intake/Output Summary (Last 24 hours) at 04/20/2024 1142 Last data filed at 04/20/2024 0751 Gross per 24 hour Intake 1140 ml Output 1875 ml Net -735 ml I/O last 3 completed shifts: In: 1300 (13.5 mL/kg) [P.O.:900; IV Piggyback:400] Out: 2825 (29.2 mL/kg) [Urine:2825 (0.8 mL/kg/hr)] Weight: 96.6 kg Safety Concerns: none Impairments/Disabilities: paralysis - BLLE Nutrition Therapy: Current Nutrition Therapy: Oral diet: carb control 5 carbs/meal (2000kcals/day) Routes of Feeding: oral Liquids: thin liquids Daily Fluid Restriction: no Last Modified Barium Swallow with Video (Video Swallowing Test): not done Treatments at the Time of Hospital Discharge: Respiratory Treatments: Oxygen Therapy: is not on home oxygen therapy. Ventilator: No ventilator support Rehab Therapies: physical therapy and occupational therapy Weight Bearing Status/Restrictions: no restriction Other Medical Equipment (for information only, NOT a DME order): scooter Other Treatments: Patient's personal belongings (please select all that are sent with patient): RN SIGNATURE: MANAGEMENT/SOCIAL WORK SECTION Inpatient Status Date: 04-14-2024 Discharging to Facility/ Agency Name: [facility] Address: [address] [place] [address] Dialysis Facility (if applicable) Name: Address: Dialysis Schedule: Phone: Fax: Tuna Purse Seiner/Asphalt Screed Operator signature: {E-signature:[id number]} ICIAN SECTION Name: Anmol Franco Gail Prognosis: {Rehab Prognosis:54502} Condition at Discharge: {Patient Condition:10970} Rehab Potential (if transferring to Rehab): excellent Recommended Labs or Other Treatments After Discharge: blood cultures to be obtained on 05/06/24 The individual is being admitted to a nursing facility directly from an [facility] or a unit of a hospital that is not operated by or licensed by [facility] under section 5119.14 or 5160-3-15.1 5 The individual requires the level of services provided by a nursing facility for the condition for which he or she was treated in the hospital and, Physician Certification: I certify the above information and transfer of Anmol Reynolds is necessary for the continuing treatment of the diagnosis listed and that he requires prison facility for less than 30 days. Update Admission H&P: No change in H&P PHYSICIAN SIGNATURE: documented in this encounter [facility] 04-20-2024 Nurse Note Patient tolerated procedure well. Transferring back to nursing floor. Patient arrived from [facility], AMOL Enriquez was in to speak with the patient regarding PICC, consent was obtained. Patient was placed supine on exam table prepped and draped in sterile fashion. Telemetry monitors placed, vitals being monitored. documented in this encounter [facility] 04-19-2024 History of Present illness Narrative Nutrition Assessment Type and Reason for Visit: Reassess Nutrition Recommendations/Plan: Suggest continue diet as ordered Adult diet Regular; 5 carb choices (75 gm/meal); per mnt protocol allow double protein serving at meals as pt desires Per mnt protocol will discontinue Ensure supplements -per pt request. Declines all other supplements at this time. Encourage PO/ protein intake Suggest Vit C, MVI RD to monitor po intake, labs, weight; follow up weekly Malnutrition Assessment: Malnutrition Status: At risk for malnutrition (Comment) (wounds) Context: Acute Illness Findings of the 6 clinical characteristics of malnutrition: Energy Intake: Mild decrease in energy intake (Comment) (pt reports flora meals at this time) Weight Loss: No significant weight loss Body Fat Loss: Unable to assess Muscle Mass Loss: Unable to assess Fluid Accumulation: Mild Extremities (+2 kenroy LE) Grain Spouter Strength: Not Performed Nutrition Assessment: per MD notes: pt clinically improved. septic shock, complicated UTI and bacteremia, admitted to ICU (now on general medical floor), found to have positive bacteremia with proteus, providencia, morganella, UC positive for providencia; urinary obstruction with bilateral calculi and bilateral hydronephrosis. S/p cystoscopy, pyelogram, bilateral ureteral stent placement by urology on 04/14/24. Plan for PICC placement and likely discharge soon. Pt states his appetite is "ok" reports he doesn't like Ensure is not drinking, declines all supplements at this time. Estimated Daily Nutrient Needs: Energy Requirements Based On: Kcal/kg Weight Used for Energy Requirements: [place] Weight for Energy Calculation (kg): 82 kg Total Energy Requirements (kcals/day): 8327-3484 (28-30) Weight Used for Protein Requirements: [place] Weight in Kg Used for Protein Requirements: 82.41 kg Estimated Total Protein (g/day): 1-1.5 or 82-124 Estimated Daily Total Fluid (ml/day): or per MD Nutrition Related Findings: +2 kenroy LE edema. +bm soft 04/19, bgluc 232, 163, alb 2.7, cr .44 meds include iron, insulin, remeron. wt reviewed- increase noted +edema vs accuracy of measure Wound Type: (R lateral foot DTI, Sacral stage 2 PI per Wound Care) 04/19/24 0547 96.6 kg (212 lb 15.4 oz) 04/18/24 0500 92.6 kg (204 lb 1 oz) 04/17/24 0349 93.4 kg (206 lb) 04/14/24 1555 93.1 kg (205 lb 4.8 oz) Current Nutrition Therapies: Adult diet Regular; 5 carb choices (75 gm/meal) Current Oral Intake Average Meal Intake: 76-100% Average Supplements Intake: 0% Anthropometric Measures: Height: 190.5 cm (6' 3") Current Body Weight: 96.2 kg (212 lb) (wt source not specified) Weight Source: Not Specified Admission Body Weight: 93 kg (205 lb) Usual Body Weight: 83 kg (183 lb) % Weight Change (Calculated): 12.2 [place] Body Weight (lbs) (Calculated): 196 lbs [place] Body Weight (Kg) (Calculated): 89 kg % [place] Body Weight (Calculated): 104.7 % BMI (kg/m2) (Calculated): 26.5 Weight Adjustment For: Paraplegia % Weight Adjustment: 7.5 - Paraplegia Total Adjusted Percentage (Calculated): 7.5 Adjusted [place] Body Weight (lbs) (Calculated): 181.3 lbs Adjusted [place] Body Weight (kg) (Calculated): 82.41 kg Adjusted BMI (kg/m2) (Calculated): 28.5 BMI Categories: Overweight (BMI 25.0-29.9) Nutrition Diagnosis: Increased nutrient needs related to acute injury/trauma as evidenced by wounds, other (comment) (recent or) Altered nutrition-related lab values related to endocrine dysfuntion as evidenced by lab values (hbaic) Nutrition Interventions: Nutrition Education/Counseling: No recommendation at this time Coordination of Nutrition Care: Continue to monitor while inpatient Plan of Care discussed with: patient Goals: Previous Goal Met: Progressing toward Goal(s) Goals: by next RD assessment, PO intake 75% or greater Nutrition Monitoring and Evaluation: Behavioral-Environmental Outcomes: None Identified Food/Nutrient Intake Outcomes: Food and Nutrient Intake Physical Signs/Symptoms Outcomes: Biochemical Data, Chewing or Swallowing, GI Status, Nausea or Vomiting, Fluid Status or Edema, Hemodynamic Status, Nutrition Focused Physical Findings, Skin, Weight Discharge Planning: Continue current diet Zonia Dumont RD Contact: *[phone] or via Secure Chat Images from the original note were not included. [facility] - Infectious Diseases Attending Progress Note Subjective: Follow up for septic shock, bacteremia due to proteus, providencia, and morganella, complicated UTI and bilateral ureteral obstruction s/p cystoscopy, bilateral stent change and Santana cath insertion on 04/14/24. He was alert, laying on bed, felt well, c/o chronic legs pain; denied fever, chill or any new complaints, he appeared non-toxic. He was admitted to ICU on 04/14/24 with a clogged santana catheter and both leg pain; on presentation, he had a temp of 99.6 F with tachycardia (P 121), hypotension (BP 82/55), tachypneic (R 20-30), his BP further decreased to 63/51; CT scan of abdomen and pelvis showed bilateral ureteral obstruction with bilateral hydronephrosis, he was brought to the operating room for emergent stent placement, and a santana catheter was placed to straight drain. He has h/o paraplegia, chronic bilateral leg pain related to previous spinal cord injury / epidural abscess. He was examined; notes, labs, imaging were reviewed and treatment plan was discussed. Objective: Vitals: 04/17/24 0742 36.9 (98.4) 77 12 124/71 95 None (Room air) -- -- 04/17/24 0401 36.8 (98.2) 71 16 121/81 94 None (Room air) -- -- 04/17/24 0002 36.8 (98.2) 81 17 112/75 96 None (Room air) -- -- Physical Exam Vitals and nursing note reviewed. Constitutional: General: He is bed-bound but in no acute distress. Appearance: He is non-toxic appearing. HENT: Mouth/Throat: Pharynx: Oropharynx is clear. Eyes: Conjunctiva/sclera: Conjunctivae normal. Pupils: Pupils are equal, round, and reactive to light. Cardiovascular: Rate and Rhythm: Regular rhythm. Tachycardia decreased. Heart sounds: Murmur heard. Pulmonary: Effort: No respiratory distress. Breath sounds: No wheezing. Abdominal: General: There is no distension. Tenderness: There is no abdominal tenderness. Musculoskeletal: General: Tenderness present. Right lower leg: Edema present. Left lower leg: Edema present. Skin: Capillary Refill: Capillary refill takes less than 2 seconds. Coloration: Skin is pale. Findings: Bruising decreased. Neurological: Mental Status: He is alert and oriented to person, place, and time. Labs: Recent Labs 04/17/24 0342 04/18/24 0712 04/19/24 0428 NA 135 140 138 K 3.2* 3.1* 3.5 CL 107 105 107 CO2 23 27 26 BUN 23* 15 14 CREATININE 0.58* 0.51* 0.44* GLUCOSE 144* 74 153* CALCIUM 7.9* 7.8* 7.9* PROT 5.6* 6.0* 6.0* BILITOT 0.7 0.8 0.6 ALKPHOS 128* 123 119 AST 22 18 19 ALT 22 18 16 Recent Labs 04/17/24 0342 04/18/24 0712 04/19/24 0428 WBC 7.9 8.4 9.2 HGB 11.5* 12.1* 11.6* HCT 35.4* 36.6* 35.0* PLT 77* 79* 88* LYMPHOPCT 16.8 13* 13* MONOPCT 5.5 8 8 BASOPCT 0.1 -- 1 NEUTROABS 6.0 -- -- Micro: No results for input(s): "COVID19" in the last 72 hours. 04/16/2024 0654 04/16/2024 110 Blood culture Site #1 - Assess for effectiveness of treatment [[id number]] Blood, Venous Preliminary result Component Value Blood Culture Blood culture incubation started P 04/16/2024 0654 04/16/2024 110 Blood culture Site #2 - Assess for effectiveness of treatment [[id number]] Blood, Venous Preliminary result Component Value Blood Culture Blood culture incubation started P 04/15/2024 1713 04/15/2024 2208 MRSA by PCR [[id number]] (Abnormal) ESwab from Nasal Final result Component Value Staphylococcus aureus Detected Abnormal mecA gene Not Detected 04/15/2024 0103 04/16/2024 1135 Urine culture [[id number]] (Abnormal) Urine, Clean Catch Preliminary result Component Value Urine Culture Normal urogenital gosia present P 50,000-90,000 CFU/mL Providencia stuartii Abnormal P 04/14/2024 1631 04/16/2024 1204 Blood culture Site #1 - Suspected Infection [[id number]] (Abnormal) Blood, Venous Preliminary result Component Value Blood Culture Proteus mirabilis Panic P Providencia stuartii Panic P Morganella morganii Panic P 04/14/2024 1631 04/16/2024 1204 Blood culture Site #2 - Suspected Infection [[id number]] (Abnormal) Blood, Venous Preliminary result Component Value Blood Culture Morganella morganii Panic P For identification and/or sensitivity, refer to culture collected on: 04/14/24 at 16:31, [id number]. This is an edited result. Previous organism was Gram-negative bacilli on 04/15/2024 at 0835 EDT. 04/14/2024 1631 04/15/2024 0828 Blood Culture Identification - Anaerobic [[id number]] (Abnormal) Blood, Venous Final result Component Value Proteus species Detected Abnormal Lines: PIV Radiography/Echo/Other: Procedure Component Value Units Date/Time FL pyelogram retrograde [[id number]] Resulted: 04/14/242216 Order Status: Completed Updated: 04/14/242216 Narrative: There is no interpretation needed for this exam. CT abdomen pelvis wo IV contrast [[id number]] Collected: 04/14/241928 Order Status: Completed Updated: 04/14/241938 Narrative: Patient Name: ANMOL REYNOLDS : 1960 Exam Date/Time: 04/14/2024 19:28 Procedure: CT ABDOMEN PELVIS WO IV CONTRAST Ordering Provider: [facility] Reason For Exam: Sepsis CT ABDOMEN AND PELVIS WITHOUT IV CONTRAST CLINICAL INDICATION: Sepsis. TECHNIQUE: Multidetector axial CT images through the abdomen and pelvis were obtained without IV contrast. No oral contrast was administered. Images were reconstructed in sagittal and coronal planes. Dose reduction was employed with automated exposure control. COMPARISON: None. FINDINGS: This examination is limited for the evaluation of solid organs and vascular structures due to the lack of intravenous contrast. Lower thorax: Tiny bilateral pleural effusions with associated atelectasis, left more extensive than right. Stomach: Unremarkable. Liver: Normal size and contours. Normal hepatic parenchyma. No focal lesion. Biliary tree: Unremarkable gallbladder by CT. No biliary dilatation Spleen: Normal Adrenals: Normal. Pancreas: Sequela of chronic pancreatitis including coarse calcifications throughout the pancreas. Some mild peripancreatic fat stranding and edema is present at the level of the head and uncinate process, suggesting possible low-grade pancreatitis. Right kidney and collecting system: Severe hydroureteronephrosis, with a string/2.3 cm length calcifications within the mid ureter. Left kidney and collecting system: Moderate hydroureteronephrosis with 3 separate 3 mm calcifications within the proximal most ureter. A few additional subcentimeter calcifications are present in the lower pole. Free air or fluid: None. Mesenteric/retroperitoneal: No adenopathy or inflammation. Aorta: Normal caliber. Bowel: Nonspecific rectal wall thickening. Increased fecal residue throughout the colon is suggestive of constipation. No small bowel inflammatory change or dilatation is noted. Bladder: The urinary bladder is decompressed by Santana catheter. Within the bladder lumen, there is a 3.4 x 3.1 cm calcification. Inguinal: . Abdominal wall/soft tissues: No ventral hernia is evident. Osseous structures: Severely decreased osseous mineralization. Thoracolumbar spine fusion hardware. Chronic fracture deformity of L2-3 with kyphoplasty changes. Impression: 1. Some mild peripancreatic fat stranding and edema is present at the level of the head and uncinate process, suggesting possible low-grade pancreatitis. Sequela of chronic pancreatitis including coarse calcifications throughout the pancreas. 2. Severe right hydroureteronephrosis, with a string/2.3 cm length calcifications within the mid ureter. 3. Moderate left hydroureteronephrosis with 3 separate 3 mm calcifications within the proximal most ureter. 4. Nonspecific rectal wall thickening. Increased fecal residue throughout the colon is suggestive of constipation. 5. Within the urinary bladder lumen, there is a 3.4 x 3.1 cm calcification. 6. Tiny bilateral pleural effusions with associated atelectasis, left more extensive than right. Report Dictated on Electronically Signed By: Joe Monroy MD Electronically Signed Date/Time: 04/14/2024 7:37 PM EDT XR chest 1 view [[id number]] Collected: 04/14/241650 Order Status: Completed Updated: 04/14/241652 Narrative: [facility] 1960 [id number] Exam Date/Time: 04/14/2024 16:39 Procedure: XR CHEST 1 VIEW Ordering Provider: DICKENS RALEIGH Reason For Exam: sepsis INDICATION: Sepsis. VIEWS: Portable AP upright chest-one image COMPARISON: None. FINDINGS: Cardiac monitoring wires and leads are present. There is fusion hardware of the lumbar spine. The trachea is midline. The cardiomediastinal silhouette is within normal limits. The lung volumes are low. There is no confluent consolidation. Impression: No confluent consolidation. Lumbar spine fusion. Report Dictated on Electronically Signed By: Geneva Lunsford MD Electronically Signed Date/Time: 04/14/2024 4:52 PM EDT Antimicrobials, Start/End Dates: Ceftr 04/14 Erta 04/14- Fluco 04/14- Pip/tazo 04/14 Vanco 04/14- Ulisses 04/16- Impression: Septic shock. Improved. Proteus, providencia, and morganella bacteremia. Complicated UTI due to providencia. Bilateral hydronephrosis and obstruction due to bilateral ureteral calculus. s/p cystoscopy, bilateral stent change and Santana cath insertion on 04/14/24. Bladder stone Neurogenic bladder with chronic santana catheter. Paraplegia. Type 2 diabetes. Plan: Pt clinically improved, was admitted sick due to septic shock due to proteus, providencia, and morganella bacteremia due to urosepsis. S/p emergent cystoscopy, bilateral stent change and Santana cath insertion on 04/14/24. Afebrile, hemodynamically ok. Recent blood cxs -neg so far. Urine cx grew providencia, no fungi. Discontinue fluconazole. Continue meropenem through industrial recruiter, then, tomorrow change to ertapenem (1st dose at 9:30 AM on 04/20) and continue for 2 weeks from -neg cx date (04/16) through 04/30/24. Surveillance blood cx x2 on 05/06/24. Needs Picc line. Opat in chart. Follow up with urologist for removal of stents. Please call with any further question. Total time 50 minutes on this day of encounter includes counseling, coordinating plan of care, record and documentation review before and after visit including documentation and time not explicitly included on EMR time stamp for accounting for open encounter. Hospitalist Progress Note 04/19/2024 [phone]: Please page me ([phone]) for patient care issues. [phone]: Please page [facility] Hospitalist for any issues. Subjective: Admit Date: 04/14/2024 PCP: AMBROSIO MONROY DO Room#: B2-254/B2-254 A Interval History: patient admitted for santana issues, found to have severe sepsis. No overnight issues. Denies chest pain, sob, abdominal pain, nausea, vomiting, diarrhea, constipation, fevers, or chills. Reports feeling well today. Adult diet Regular; 5 carb choices (75 gm/meal) 24HR INTAKE/OUTPUT: Intake/Output Summary (Last 24 hours) at 04/19/2024 1136 Last data filed at 04/19/2024 0823 Gross per 24 hour Intake 1160 ml Output 2950 ml Net -1790 ml Past Medical History: Past Medical History: Diagnosis Date Abscess, perineum Chronic back pain Hip sprain Hyperlipidemia Hypertension Neuropathy Osteoarthritis Sciatica Type 2 diabetes mellitus without complication ([facility]) ([facility]) LABS: CBC: Recent Labs 04/17/2434104/18/2471104/19/24427 WBC 7.9 8.4 9.2 RBC 3.83* 3.95* 3.79* HGB 11.5* 12.1* 11.6* HCT 35.4* 36.6* 35.0* MCV 92.4 92.7 92.3 RDW 14.9 15.0 14.8 PLT 77* 79* 88* BMP: Recent Labs 04/17/2434104/18/24 0704/19/24 042 NA 135 140 138 K 3.2* 3.1* 3.5 CL 107 105 107 CO2 23 27 26 BUN 23* 15 14 CREATININE 0.58* 0.51* 0.44* GLUCOSE 144* 74 153* CALCIUM 7.9* 7.8* 7.9* ANIONGAP 5 7 5 LIVER PROFILE: Recent Labs 04/17/2434104/18/24 0704/19/24 042 AST 22 18 19 ALT 22 18 16 BILITOT 0.7 0.8 0.6 ALKPHOS 128* 123 119 PROT 5.6* 6.0* 6.0* PT/INR: Recent Labs 04/16/24 1157 PROTIME 10.9 INR 1.0 CARDIAC ENZYMES: No results for input(s): "TROPONINI" in the last 72 hours. Procalcitonin: No results found for: "PROCAL" COVID-19 PCR: No results for input(s): "COVID19" in the last 72 hours. Objective: Vitals: BP 119/74 (BP Location: Right arm, Patient Position: Lying) Pulse 76 Temp 36 C (96.8 F) (Temporal) Resp 18 Ht 6' 3" (1.905 m) Wt 212 lb 15.4 oz (96.6 kg) SpO2 90% BMI 26.62 kg/m Pulse Ox: SpO2 Av.8 % Min: 90 % Max: 96 % Supplemental O2: O2 Flow Rate (L/min): 2 L/min General appearance: No apparent distress, appears stated age and cooperative with exam Respiratory: CTA BL Cardiovascular: Regular rate and rhythm with no murmur Abdomen: Soft, non-tender, non-distended Skin: Skin color, texture, turgor normal. No rashes or lesions. Distal pulses intact in BL LE, 1+ BL LE edema present. Neurologic: BL LE paraplegia, otherwise no gross focal deficits Medications: docusate, 50 mg, Oral, BID [Held by provider] enoxaparin, 40 mg, SubCUTAneous, Daily ferrous sulfate, 325 mg, Oral, Daily with breakfast fluconazole, 400 mg, IntraVENous, q24h insulin glargine, 45 Units, SubCUTAneous, Nightly insulin lispro, 0-12 Units, SubCUTAneous, TID WC And insulin lispro, 0-12 Units, SubCUTAneous, Nightly linaGLIPtin, 5 mg, Oral, Daily meropenem, 2,000 mg, IntraVENous, q8h mirtazapine, 7.5 mg, Oral, Nightly polyethylene glycol (PEG) 3350, 17 g, Oral, Daily pregabalin, 200 mg, Oral, TID sodium chloride 0.9%, 10 mL, IntraVENous, 2 times per day tamsulosin, 0.4 mg, Oral, Daily Assessment Septic shock 2/2 UTI and Bacteremia Bacteremia with Proteus, providencia, morganella Complicated UTI, providencia Urinary obstruction 2/2 bilateral calculi with bilateral hydronephrosis ID following S/p cystoscopy, pyelogram, bilateral ureteral stent placement by urology on 04/14/24 PICC to be placed on 04/20/24 Abx per ID recs Large soft tissue mass in bladder Possible fungal ball? Fluconazole per ID recs MK Resolved Hypokalemia Replaced as indicated BMP in the AM Hypomagnesemia Replaced as indicated Metabolic and lactic acidosis Resolved Normocytic anemia Mild Thrombocytopenia 2/2 septic shock. Slowly improving Daily CBC DM type 2 with hyperglycemia Chronic paraplegia and neurogenic bladder requiring chronic indwelling urinary catheter Malnutrition, unspecified Medical Decision Making 04/19/24: Patient with septic shock with complicated UTI and bacteremia, admitted to ICU, found to have positive bacteremia with proteus, providencia, morganella, UC positive for providencia. Urology on consult, patient had urinary obstruction with bilateral calculi and bilateral hydronephrosis. S/p cystoscopy, pyelogram, bilateral ureteral stent placement on 04/20/24. Patient on abx per ID recs. Plan for PICC placement tomorrow and likely discharge to home following placement tomorrow. Labs and vitals reviewed and stable. CBC and BMP in the AM. -am labs, replace lytes prn -increase activity -resume home medications as indicated -DVT prophylaxis: [] Lovenox [] Heparin [] SCDs [x] Encourage ambulation [] Already on Anticoagulation Anticipated Discharge - Date - 04/20/24 - Location - Home - Pending the following - PICC placement, final abx from ID. Toxic drug monitoring/narrow therapeutic index drug monitoring : # Drug name : # Route administered : # Method of monitoring : Extended Emergency Contact Information Primary Emergency Contact: Ronald Reynolds Mobile Relation: Sibling Secondary Emergency Contact: GAILSUMI Mobile Relation: Daughter Otis Mckenzie DO Division of Hospitalist Medicine Inpatient Medical Services/[facility]: Epic chat Hospitalist Progress Note 04/18/2024 [phone]: Please page me ([phone]) for patient care issues. [phone]: Please page [facility] night Hospitalist for any issues. Subjective: Admit Date: 04/14/2024 PCP: AMBROSIO MONROY DO Room#: B2-254/B2-254 A Interval History: No overnight issues. Denies chest pain or sob. No abdominal pain, nausea, vomiting. No fevers or chills. Adult diet Regular; 5 carb choices (75 gm/meal) @[id number]@ 24HR INTAKE/OUTPUT: Intake/Output Summary (Last 24 hours) at 04/18/2024 1214 Last data filed at 04/18/2024 0500 Gross per 24 hour Intake 700 ml Output 3850 ml Net -3150 ml Past Medical History: Past Medical History: Diagnosis Date Abscess, perineum Chronic back pain Hip sprain Hyperlipidemia Hypertension Neuropathy Osteoarthritis Sciatica Type 2 diabetes mellitus without complication (CMS/HCC) ([facility]) LABS: CBC: Recent Labs 04/16/2451404/17/2434104/18/24711 WBC 11.9* 7.9 8.4 RBC 3.91* 3.83* 3.95* HGB 12.0* 11.5* 12.1* HCT 37.2* 35.4* 36.6* MCV 95.1 92.4 92.7 RDW 15.2* 14.9 15.0 PLT 76* 77* 79* BMP: Recent Labs 04/16/2451404/17/2434104/18/24711 NA 137 135 140 K 4.3 3.2* 3.1* CL 105 107 105 CO2 25 23 27 BUN 30* 23* 15 CREATININE 0.70 0.58* 0.51* GLUCOSE 315* 144* 74 CALCIUM 8.2* 7.9* 7.8* ANIONGAP 6 5 7 LIVER PROFILE: Recent Labs 04/16/2451404/17/2434104/18/24711 AST 37 22 18 ALT 26 22 18 BILITOT 0.9 0.7 0.8 ALKPHOS 130* 128* 123 PROT 6.0* 5.6* 6.0* PT/INR: Recent Labs 04/16/24 1157 PROTIME 10.9 INR 1.0 CARDIAC ENZYMES: No results for input(s): "TROPONINI" in the last 72 hours. Procalcitonin: No results found for: "PROCAL" COVID-19 PCR: No results for input(s): "COVID19" in the last 72 hours. Objective: Vitals: BP 111/67 (BP Location: Left arm, Patient Position: Lying) Pulse 96 Temp 37.1 C (98.7 F) (Temporal) Resp 16 Ht 6' 3" (1.905 m) Wt 204 lb 1 oz (92.6 kg) SpO2 95% BMI 25.51 kg/m Pulse Ox: SpO2 Av.8 % Min: 92 % Max: 96 % Supplemental O2: O2 Flow Rate (L/min): 2 L/min General appearance: No apparent distress, appears stated age, HEENT: Eyes: No scleral icterus Oral: Tongue is semi-moist Cardiovascular: S1/S2 heard, RRR Respiratory: Clear to auscultation bilaterally Abdomen: Soft, non-tender, non-distended bowel sounds positive Musculoskeletal: No obvious deformities seen Skin: No visible rashes or lesions. Medications: docusate, 50 mg, Oral, BID [Held by provider] enoxaparin, 40 mg, SubCUTAneous, Daily ferrous sulfate, 325 mg, Oral, Daily with breakfast fluconazole, 400 mg, IntraVENous, q24h insulin glargine, 45 Units, SubCUTAneous, Nightly insulin lispro, 0-12 Units, SubCUTAneous, TID WC And insulin lispro, 0-12 Units, SubCUTAneous, Nightly linaGLIPtin, 5 mg, Oral, Daily meropenem, 2,000 mg, IntraVENous, q8h mirtazapine, 7.5 mg, Oral, Nightly polyethylene glycol (PEG) 3350, 17 g, Oral, Daily pregabalin, 200 mg, Oral, TID sodium chloride 0.9%, 10 mL, IntraVENous, 2 times per day tamsulosin, 0.4 mg, Oral, Daily Assessment # Septic shock due to UTI and bacteremia - resolved # Proteus, providencia, and morganella bacteremia- continue IV antix as per ID # Complicated UTI due to Providencia # Urinary obstruction due to bilateral calculi with bilateral hydronephrosis - s/p cystoscopy, pyelogram, bilateral ureteral stent placement per Urology. # Large soft tissue mass within the bladder read on CT scan - Urology initially felt was a large bladder stone but is likely a fungus ball?. It was mentioned that some of this material was irrigated out of the bladder with the Nakita syringe but in light of his urosepsis no further attempts were made to remove this mass to avoid the risk of further seeding of the bloodstream. Continue Fluconazole as per ID # MK # Hypokalemia - replace as needed # Hypomagnesemia - replace as needed # Metabolic/lactic acidosis - improved # Normocytic anemia (mild) # Thrombocytopenia, likely secondary to septic shock - monitor (lovenox held due to this reason) # DM type 2 with hyperglycemia # Chronic paraplegia and neurogenic bladder requiring chronic indwelling urinary catheter # Malnutrition, unspecified Plan -Continue IV Meropenem and fluconazole as per ID. ID awaiting for blood culture results that were done on 04/16. -replace potassium and magnesium today -continue to hold lovenox due to low platelets and use SCDs -check daily labs Extended Emergency Contact Information Primary Emergency Contact: Ronald Reynolds Mobile Relation: Sibling Secondary Emergency Contact: SUMI REYNOLDS Mobile Relation: Daughter Harmeet Ana Luisa Rodriguez MD Division of Hospitalist Medicine Inpatient Medical Services/[facility]: [employer] chat Images from the original note were not included. [facility] - Infectious Diseases Attending Progress Note Subjective: Follow up for septic shock, bacteremia due to proteus, providencia, and morganella, complicated UTI and bilateral ureteral obstruction s/p cystoscopy, bilateral stent change and Santana cath insertion on 04/14/24. He was alert, laying on bed, felt well, c/o chronic legs pain; denied fever, chill or any new complaints, he appeared non-toxic. He was admitted to ICU on 04/14/24 with a clogged santana catheter and both leg pain; on presentation, he had a temp of 99.6 F with tachycardia (P 121), hypotension (BP 82/55), tachypneic (R 20-30), his BP further decreased to 63/51; CT scan of abdomen and pelvis showed bilateral ureteral obstruction with bilateral hydronephrosis, he was brought to the operating room for emergent stent placement, and a santana catheter was placed to straight drain. He has h/o paraplegia, chronic bilateral leg pain related to previous spinal cord injury / epidural abscess. He was examined; notes, labs, imaging were reviewed and treatment plan was discussed. Objective: Vitals: 04/17/24 0742 36.9 (98.4) 77 12 124/71 95 None (Room air) -- -- 04/17/24 0401 36.8 (98.2) 71 16 121/81 94 None (Room air) -- -- 04/17/24 0002 36.8 (98.2) 81 17 112/75 96 None (Room air) -- -- Physical Exam Vitals and nursing note reviewed. Constitutional: General: He is in no acute distress. Appearance: He is non-toxic appearing. HENT: Mouth/Throat: Pharynx: Oropharynx is clear. Eyes: Conjunctiva/sclera: Conjunctivae normal. Pupils: Pupils are equal, round, and reactive to light. Cardiovascular: Rate and Rhythm: Regular rhythm. Tachycardia decreased. Heart sounds: Murmur heard. Pulmonary: Effort: No respiratory distress. Breath sounds: No wheezing. Abdominal: General: There is no distension. Tenderness: There is no abdominal tenderness. Musculoskeletal: General: Tenderness present. Right lower leg: Edema present. Left lower leg: Edema present. Skin: Capillary Refill: Capillary refill takes less than 2 seconds. Coloration: Skin is pale. Findings: Bruising present. Neurological: Mental Status: He is alert and oriented to person, place, and time. Labs: Recent Labs 04/14/24231704/15/2440604/16/24 0504/17/24 0342 NA -- 135 137 135 K -- 3.6 4.3 3.2* CL -- 105 105 107 CO2 -- 19* 25 23 BUN -- 25* 30* 23* CREATININE -- 1.01 0.70 0.58* GLUCOSE -- 286* 315* 144* CALCIUM -- 7.9* 8.2* 7.9* PROT -- 5.5* 6.0* 5.6* BILITOT -- 1.1 0.9 0.7 ALKPHOS -- 168* 130* 128* AST -- 36 37 22 ALT -- 34 26 22 PROCAL 27.06* -- -- -- Recent Labs 04/14/24 1603 04/14/24 1730 04/14/24231704/15/2440604/16/24 0515 04/17/24 0342 WBC 1.5* -- 5.4 11.2* 11.9* 7.9 HGB 15.2 < > 12.4* 11.9* 12.0* 11.5* HCT 47.3 -- 39.1* 36.2* 37.2* 35.4* PLT 183 -- 117* 107* 76* 77* LYMPHOPCT 38 -- 1* 1* 4* 16.8 MONOPCT 1* -- 0* 1* 1* 5.5 BASOPCT 1 -- 1 -- -- 0.1 NEUTROABS -- -- -- -- -- 6.0 < > = values in this interval not displayed. Micro: No results for input(s): "COVID19" in the last 72 hours. 04/16/2024 0654 04/16/2024 1101 Blood culture Site #1 - Assess for effectiveness of treatment [[id number]] Blood, Venous Preliminary result Component Value Blood Culture Blood culture incubation started P 04/16/2024 0654 04/16/2024 1101 Blood culture Site #2 - Assess for effectiveness of treatment [[id number]] Blood, Venous Preliminary result Component Value Blood Culture Blood culture incubation started P 04/15/2024 1713 04/15/2024 2208 MRSA by PCR [[id number]] (Abnormal) ESwab from Nasal Final result Component Value Staphylococcus aureus Detected Abnormal mecA gene Not Detected 04/15/2024 0103 04/16/2024 1135 Urine culture [[id number]] (Abnormal) Urine, Clean Catch Preliminary result Component Value Urine Culture Normal urogenital gosia present P 50,000-90,000 CFU/mL Providencia stuartii Abnormal P 04/14/2024 1631 04/16/2024 1204 Blood culture Site #1 - Suspected Infection [[id number]] (Abnormal) Blood, Venous Preliminary result Component Value Blood Culture Proteus mirabilis Panic P Providencia stuartii Panic P Morganella morganii Panic P 04/14/2024 1631 04/16/2024 1204 Blood culture Site #2 - Suspected Infection [[id number]] (Abnormal) Blood, Venous Preliminary result Component Value Blood Culture Morganella morganii Panic P For identification and/or sensitivity, refer to culture collected on: 04/14/24 at 16:31, [id number]. This is an edited result. Previous organism was Gram-negative bacilli on 04/15/2024 at 0835 EDT. 04/14/2024 1631 04/15/2024 0828 Blood Culture Identification - Anaerobic [[id number]] (Abnormal) Blood, Venous Final result Component Value Proteus species Detected Abnormal Lines: PIV Radiography/Echo/Other: Procedure Component Value Units Date/Time FL pyelogram retrograde [[id number]] Resulted: 04/14/242216 Order Status: Completed Updated: 04/14/242216 Narrative: There is no interpretation needed for this exam. CT abdomen pelvis wo IV contrast [[id number]] Collected: 04/14/241928 Order Status: Completed Updated: 04/14/241938 Narrative: Patient Name: ANMOL REYNOLDS : 1960 Exam Date/Time: 04/14/2024 19:28 Procedure: CT ABDOMEN PELVIS WO IV CONTRAST Ordering Provider: [facility] Reason For Exam: Sepsis CT ABDOMEN AND PELVIS WITHOUT IV CONTRAST CLINICAL INDICATION: Sepsis. TECHNIQUE: Multidetector axial CT images through the abdomen and pelvis were obtained without IV contrast. No oral contrast was administered. Images were reconstructed in sagittal and coronal planes. Dose reduction was employed with automated exposure control. COMPARISON: None. FINDINGS: This examination is limited for the evaluation of solid organs and vascular structures due to the lack of intravenous contrast. Lower thorax: Tiny bilateral pleural effusions with associated atelectasis, left more extensive than right. Stomach: Unremarkable. Liver: Normal size and contours. Normal hepatic parenchyma. No focal lesion. Biliary tree: Unremarkable gallbladder by CT. No biliary dilatation Spleen: Normal Adrenals: Normal. Pancreas: Sequela of chronic pancreatitis including coarse calcifications throughout the pancreas. Some mild peripancreatic fat stranding and edema is present at the level of the head and uncinate process, suggesting possible low-grade pancreatitis. Right kidney and collecting system: Severe hydroureteronephrosis, with a string/2.3 cm length calcifications within the mid ureter. Left kidney and collecting system: Moderate hydroureteronephrosis with 3 separate 3 mm calcifications within the proximal most ureter. A few additional subcentimeter calcifications are present in the lower pole. Free air or fluid: None. Mesenteric/retroperitoneal: No adenopathy or inflammation. Aorta: Normal caliber. Bowel: Nonspecific rectal wall thickening. Increased fecal residue throughout the colon is suggestive of constipation. No small bowel inflammatory change or dilatation is noted. Bladder: The urinary bladder is decompressed by Santana catheter. Within the bladder lumen, there is a 3.4 x 3.1 cm calcification. Inguinal: . Abdominal wall/soft tissues: No ventral hernia is evident. Osseous structures: Severely decreased osseous mineralization. Thoracolumbar spine fusion hardware. Chronic fracture deformity of L2-3 with kyphoplasty changes. Impression: 1. Some mild peripancreatic fat stranding and edema is present at the level of the head and uncinate process, suggesting possible low-grade pancreatitis. Sequela of chronic pancreatitis including coarse calcifications throughout the pancreas. 2. Severe right hydroureteronephrosis, with a string/2.3 cm length calcifications within the mid ureter. 3. Moderate left hydroureteronephrosis with 3 separate 3 mm calcifications within the proximal most ureter. 4. Nonspecific rectal wall thickening. Increased fecal residue throughout the colon is suggestive of constipation. 5. Within the urinary bladder lumen, there is a 3.4 x 3.1 cm calcification. 6. Tiny bilateral pleural effusions with associated atelectasis, left more extensive than right. Report Dictated on Electronically Signed By: Joe Monroy MD Electronically Signed Date/Time: 04/14/2024 7:37 PM EDT XR chest 1 view [[id number]] Collected: 04/14/241650 Order Status: Completed Updated: 04/14/241652 Narrative: [facility] 1960 [id number] Exam Date/Time: 04/14/2024 16:39 Procedure: XR CHEST 1 VIEW Ordering Provider: [facility] Reason For Exam: sepsis INDICATION: Sepsis. VIEWS: Portable AP upright chest-one image COMPARISON: None. FINDINGS: Cardiac monitoring wires and leads are present. There is fusion hardware of the lumbar spine. The trachea is midline. The cardiomediastinal silhouette is within normal limits. The lung volumes are low. There is no confluent consolidation. Impression: No confluent consolidation. Lumbar spine fusion. Report Dictated on Electronically Signed By: Geneva Lunsford MD Electronically Signed Date/Time: 04/14/2024 4:52 PM EDT Antimicrobials, Start/End Dates: Ceftr 04/14 Erta 04/14- Fluco 04/14- Pip/tazo 04/14 Vanco 04/14- Ulisses 04/16- Impression: Septic shock. Proteus, providencia, and morganella bacteremia. Complicated UTI due to providencia. Bilateral hydronephrosis and obstruction due to bilateral ureteral calculus. s/p cystoscopy, bilateral stent change and Santana cath insertion on 04/14/24. Bladder stone Neurogenic bladder with chronic santana catheter. Paraplegia. Type 2 diabetes. Plan: Pt sick due to septic shock due to proteus, providencia, and morganella bacteremia due to urosepsis. s/p cystoscopy, bilateral stent change and Santana cath insertion on 04/14/24. Afebrile, hemodynamically ok. Await 04/16 blood cxs result. Urology op note says "Large soft tissue mass within the bladder read on CT scan was a large bladder stone but is likely a fungus ball. Some of this material was irrigated out of the bladder with the Nakita syringe but in light of his urosepsis no further attempts were made to remove this mass to avoid the risk of further seeding of the bloodstream". Await final blood and urine cx results. Continue meropenem and fluconazole, discontinue vancomycin. High level complexity medical decision making. Will follow. Total time 50 minutes on this day of encounter includes counseling, coordinating plan of care, record and documentation review before and after visit including documentation and time not explicitly included on EMR time stamp for accounting for open encounter. Hospitalist Progress Note 04/17/2024 [phone]: Please page me ([phone]) for patient care issues. [phone]: Please page [facility] night Hospitalist for any issues. Subjective: Admit Date: 04/14/2024 PCP: AMBROSIO MONROY DO Room#: 222-04/222-04 A Interval History: No overnight issues. Denies chest pain or sob. No abdominal pain, nausea, vomiting. No fevers or chills. Adult diet Regular; 5 carb choices (75 gm/meal) @[id number]@ 24HR INTAKE/OUTPUT: Intake/Output Summary (Last 24 hours) at 04/17/2024 0846 Last data filed at 04/17/2024 0621 Gross per 24 hour Intake 1876 ml Output 2535 ml Net -659 ml Past Medical History: Past Medical History: Diagnosis Date Abscess, perineum Chronic back pain Hip sprain Hyperlipidemia Hypertension Neuropathy Osteoarthritis Sciatica Type 2 diabetes mellitus without complication (CMS/HCC) (HCC) LABS: CBC: Recent Labs 04/15/2440604/16/2451404/17/24341 WBC 11.2* 11.9* 7.9 RBC 3.85* 3.91* 3.83* HGB 11.9* 12.0* 11.5* HCT 36.2* 37.2* 35.4* MCV 94.0 95.1 92.4 RDW 14.9 15.2* 14.9 PLT 107* 76* 77* BMP: Recent Labs 04/15/2440604/16/2451404/17/24341 NA 135 137 135 K 3.6 4.3 3.2* CL 105 105 107 CO2 19* 25 23 BUN 25* 30* 23* CREATININE 1.01 0.70 0.58* GLUCOSE 286* 315* 144* CALCIUM 7.9* 8.2* 7.9* ANIONGAP 10 6 5 LIVER PROFILE: Recent Labs 04/15/2440604/16/2451404/17/24341 AST 36 37 22 ALT 34 26 22 BILITOT 1.1 0.9 0.7 ALKPHOS 168* 130* 128* PROT 5.5* 6.0* 5.6* PT/INR: Recent Labs 04/14/24200404/16/24 1157 PROTIME 27.1* 10.9 INR 2.7* 1.0 CARDIAC ENZYMES: Recent Labs 04/14/24 1603 TROPONINI <0.012 Procalcitonin: Lab Results Component Value Date PROCAL 27.06 (H) 04/14/2024 COVID-19 PCR: No results for input(s): "COVID19" in the last 72 hours. Objective: Vitals: BP 121/81 (BP Location: Left arm, Patient Position: Lying) Pulse 71 Temp 36.8 C (98.2 F) (Oral) Resp 16 Ht 6' 3" (1.905 m) Wt 206 lb (93.4 kg) SpO2 94% BMI 25.75 kg/m Pulse Ox: SpO2 Av.2 % Min: 94 % Max: 100 % Supplemental O2: O2 Flow Rate (L/min): 2 L/min General appearance: No apparent distress, appears stated age, HEENT: Eyes: No scleral icterus Oral: Tongue is semi-moist Cardiovascular: S1/S2 heard, RRR Respiratory: Clear to auscultation bilaterally Abdomen: Soft, non-tender, non-distended bowel sounds positive Musculoskeletal: No obvious deformities seen Skin: No visible rashes or lesions. Medications: docusate, 50 mg, Oral, BID [Held by provider] enoxaparin, 40 mg, SubCUTAneous, Daily ferrous sulfate, 325 mg, Oral, Daily with breakfast fluconazole, 400 mg, IntraVENous, q24h insulin glargine, 45 Units, SubCUTAneous, Nightly insulin lispro, 0-12 Units, SubCUTAneous, TID WC And insulin lispro, 0-12 Units, SubCUTAneous, Nightly linaGLIPtin, 5 mg, Oral, Daily meropenem, 2,000 mg, IntraVENous, q8h mirtazapine, 7.5 mg, Oral, Nightly polyethylene glycol (PEG) 3350, 17 g, Oral, Daily pregabalin, 200 mg, Oral, TID sodium chloride 0.9%, 10 mL, IntraVENous, 2 times per day tamsulosin, 0.4 mg, Oral, Daily vancomycin, 1,250 mg, IntraVENous, q12h Assessment # Septic shock due to UTI and bacteremia # Proteus, providencia, and morganella bacteremia. # Complicated UTI due to Providencia # Urinary obstruction due to bilateral calculi with bilateral hydronephrosis - s/p cystoscopy, pyelogram, bilateral ureteral stent placement per Urology. # MK # Hypokalemia - replace as needed # Metabolic/lactic acidosis - improved # Normocytic anemia (mild) # Thrombocytopenia, likely secondary to septic shock - monitor (lovenox held due to this reason) # DM type 2 with hyperglycemia # Chronic paraplegia and neurogenic bladder requiring chronic indwelling urinary catheter # Malnutrition, unspecified Plan -Patient just transferred out of ICU under my service. Prior notes/records reviewed. Continue current tx the same as recommended per ICU team/consultants on transfer. -Continue IV Vanco/Meropenem as per ID -replace potassium -continue to hold lovenox due to low platelets and use SCDs -check daily labs Extended Emergency Contact Information Primary Emergency Contact: Ronald Reynolds Mobile Relation: Sibling Secondary Emergency Contact: SUMI REYNOLDS Mobile Relation: Daughter Harmeet Rodriguez MD Division of Hospitalist Medicine Inpatient Medical Services/[facility]: Epic chat Images from the original note were not included. [facility] - Infectious Diseases Attending Progress Note Subjective: Follow up for septic shock, bacteremia due to proteus, providencia, and morganella, complicated UTI and bilateral ureteral obstruction s/p cystoscopy, bilateral stent change and Santana cath insertion on 04/14/24. 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 He was admitted to ICU on 04/14/24 with a clogged santana catheter and both leg pain; on presentation, he had a temp of 99.6 F with tachycardia (P 121), hypotension (BP 82/55), tachypneic (R 20-30), his BP further decreased to 63/51; CT scan of abdomen and pelvis showed bilateral ureteral obstruction with bilateral hydronephrosis, he was brought to the operating room for emergent stent placement, and a santana catheter was placed to straight drain. He has h/o paraplegia, chronic bilateral leg pain related to previous spinal cord injury / epidural abscess. He was examined; notes, labs, imaging were reviewed and treatment plan was discussed. Objective: Vitals: BP MAP 132/83 (04/16/24522) 97 (04/16/24522) Arterial BP MAP Temp 36.5 C (97.7 F) (04/16/24522) Pulse 69 (04/16/24522) Resp 17 (04/16/24522) SpO2 99 % (04/16/24522) Weight 93.1 kg (205 lb 4.8 oz) (04/14/24 1555) BMI Body mass index is 25.66 kg/m . Physical Exam Vitals and nursing note reviewed. Constitutional: General: He is in acute distress. Appearance: He is ill-appearing. HENT: Mouth/Throat: Pharynx: Oropharynx is clear. Eyes: Conjunctiva/sclera: Conjunctivae normal. Pupils: Pupils are equal, round, and reactive to light. Cardiovascular: Rate and Rhythm: Regular rhythm. Tachycardia present. Heart sounds: Murmur heard. Pulmonary: Effort: No respiratory distress. Breath sounds: No wheezing. Abdominal: General: There is no distension. Tenderness: There is no abdominal tenderness. Musculoskeletal: General: Tenderness present. Right lower leg: Edema present. Left lower leg: Edema present. Skin: Capillary Refill: Capillary refill takes less than 2 seconds. Coloration: Skin is pale. Findings: Bruising present. Neurological: Mental Status: He is alert and oriented to person, place, and time. Labs: Recent Labs 04/14/24 1603 04/14/24 2318 04/15/24 0407 04/16/24 0515 NA 137 -- 135 137 K 3.9 -- 3.6 4.3 CL 102 -- 105 105 CO2 19* -- 19* 25 BUN 21* -- 25* 30* CREATININE 1.24 -- 1.01 0.70 GLUCOSE 259* -- 286* 315* CALCIUM 9.0 -- 7.9* 8.2* PROT 7.8 -- 5.5* 6.0* BILITOT 1.4* -- 1.1 0.9 ALKPHOS 167* -- 168* 130* AST 25 -- 36 37 ALT 22 -- 34 26 PROCAL -- 27.06* -- -- Recent Labs 04/14/24 1603 04/14/24 1730 04/14/24 2318 04/15/24 0407 04/16/24 0515 WBC 1.5* -- 5.4 11.2* 11.9* HGB 15.2 < > 12.4* 11.9* 12.0* HCT 47.3 -- 39.1* 36.2* 37.2* PLT 183 -- 117* 107* 76* LYMPHOPCT 38 -- 1* 1* 4* MONOPCT 1* -- 0* 1* 1* BASOPCT 1 -- 1 -- -- < > = values in this interval not displayed. Micro: No results for input(s): "COVID19" in the last 72 hours. 04/16/2024 0654 04/16/2024 1101 Blood culture Site #1 - Assess for effectiveness of treatment [[id number]] Blood, Venous Preliminary result Component Value Blood Culture Blood culture incubation started P 04/16/2024 0654 04/16/2024 1101 Blood culture Site #2 - Assess for effectiveness of treatment [[id number]] Blood, Venous Preliminary result Component Value Blood Culture Blood culture incubation started P 04/15/2024 1713 04/15/2024 2208 MRSA by PCR [[id number]] (Abnormal) ESwab from Nasal Final result Component Value Staphylococcus aureus Detected Abnormal mecA gene Not Detected 04/15/2024 0103 04/16/2024 1135 Urine culture [[id number]] (Abnormal) Urine, Clean Catch Preliminary result Component Value Urine Culture Normal urogenital gosia present P 50,000-90,000 CFU/mL Providencia stuartii Abnormal P 04/14/2024 1631 04/16/2024 1204 Blood culture Site #1 - Suspected Infection [[id number]] (Abnormal) Blood, Venous Preliminary result Component Value Blood Culture Proteus mirabilis Panic P Providencia stuartii Panic P Morganella morganii Panic P 04/14/2024 1631 04/16/2024 1204 Blood culture Site #2 - Suspected Infection [[id number]] (Abnormal) Blood, Venous Preliminary result Component Value Blood Culture Morganella morganii Panic P For identification and/or sensitivity, refer to culture collected on: 04/14/24 at 16:31, [id number]. This is an edited result. Previous organism was Gram-negative bacilli on 04/15/2024 at 0835 EDT. 04/14/2024 1631 04/15/2024 0828 Blood Culture Identification - Anaerobic [[id number]] (Abnormal) Blood, Venous Final result Component Value Proteus species Detected Abnormal Lines: PIV Radiography/Echo/Other: Procedure Component Value Units Date/Time FL pyelogram retrograde [[id number]] Resulted: 04/14/247 Order Status: Completed Updated: 04/14/242216 Narrative: There is no interpretation needed for this exam. CT abdomen pelvis wo IV contrast [[id number]] Collected: 04/14/241928 Order Status: Completed Updated: 04/14/241938 Narrative: Patient Name: ANMOL REYNOLDS : 1960 [facility]#: [id number] Exam Date/Time: 04/14/2024 19:28 Procedure: CT ABDOMEN PELVIS WO IV CONTRAST Ordering Provider: [facility] [place] Reason For Exam: Sepsis CT ABDOMEN AND PELVIS WITHOUT IV CONTRAST CLINICAL INDICATION: Sepsis. TECHNIQUE: Multidetector axial CT images through the abdomen and pelvis were obtained without IV contrast. No oral contrast was administered. Images were reconstructed in sagittal and coronal planes. Dose reduction was employed with automated exposure control. COMPARISON: None. FINDINGS: This examination is limited for the evaluation of solid organs and vascular structures due to the lack of intravenous contrast. Lower thorax: Tiny bilateral pleural effusions with associated atelectasis, left more extensive than right. Stomach: Unremarkable. Liver: Normal size and contours. Normal hepatic parenchyma. No focal lesion. Biliary tree: Unremarkable gallbladder by CT. No biliary dilatation Spleen: Normal Adrenals: Normal. Pancreas: Sequela of chronic pancreatitis including coarse calcifications throughout the pancreas. Some mild peripancreatic fat stranding and edema is present at the level of the head and uncinate process, suggesting possible low-grade pancreatitis. Right kidney and collecting system: Severe hydroureteronephrosis, with a string/2.3 cm length calcifications within the mid ureter. Left kidney and collecting system: Moderate hydroureteronephrosis with 3 separate 3 mm calcifications within the proximal most ureter. A few additional subcentimeter calcifications are present in the lower pole. Free air or fluid: None. Mesenteric/retroperitoneal: No adenopathy or inflammation. Aorta: Normal caliber. Bowel: Nonspecific rectal wall thickening. Increased fecal residue throughout the colon is suggestive of constipation. No small bowel inflammatory change or dilatation is noted. Bladder: The urinary bladder is decompressed by Santana catheter. Within the bladder lumen, there is a 3.4 x 3.1 cm calcification. Inguinal: . Abdominal wall/soft tissues: No ventral hernia is evident. Osseous structures: Severely decreased osseous mineralization. Thoracolumbar spine fusion hardware. Chronic fracture deformity of L2-3 with kyphoplasty changes. Impression: 1. Some mild peripancreatic fat stranding and edema is present at the level of the head and uncinate process, suggesting possible low-grade pancreatitis. Sequela of chronic pancreatitis including coarse calcifications throughout the pancreas. 2. Severe right hydroureteronephrosis, with a string/2.3 cm length calcifications within the mid ureter. 3. Moderate left hydroureteronephrosis with 3 separate 3 mm calcifications within the proximal most ureter. 4. Nonspecific rectal wall thickening. Increased fecal residue throughout the colon is suggestive of constipation. 5. Within the urinary bladder lumen, there is a 3.4 x 3.1 cm calcification. 6. Tiny bilateral pleural effusions with associated atelectasis, left more extensive than right. Report Dictated on Electronically Signed By: Joe Monroy MD Electronically Signed Date/Time: 04/14/2024 7:37 PM EDT XR chest 1 view [[id number]] Collected: 04/14/241650 Order Status: Completed Updated: 04/14/241652 Narrative: [facility] 1960 [id number] Exam Date/Time: 04/14/2024 16:39 Procedure: XR CHEST 1 VIEW Ordering Provider: DICKENS RALEIGH Reason For Exam: sepsis INDICATION: Sepsis. VIEWS: Portable AP upright chest-one image COMPARISON: None. FINDINGS: Cardiac monitoring wires and leads are present. There is fusion hardware of the lumbar spine. The trachea is midline. The cardiomediastinal silhouette is within normal limits. The lung volumes are low. There is no confluent consolidation. Impression: No confluent consolidation. Lumbar spine fusion. Report Dictated on Electronically Signed By: Geneva Lunsford MD Electronically Signed Date/Time: 04/14/2024 4:52 PM EDT Antimicrobials, Start/End Dates: Ceftr 04/14 Erta 04/14- Fluco 04/14- Pip/tazo 04/14 Vanco 04/14- Impression: Septic shock. Proteus, providencia, and morganella bacteremia. Complicated UTI due to providencia. Bilateral hydronephrosis and obstruction due to bilateral ureteral calculus Bladder stone Neurogenic bladder with chronic santana catheter. Paraplegia. Type 2 diabetes. Plan: Pt sick due to septic shock due to proteus, providencia, and morganella bacteremia due to urosepsis. s/p cystoscopy, bilateral stent change and Santana cath insertion on 04/14/24. Afebrile, off pressor. Rept blood cxs today. Urology op note says Large soft tissue mass within the bladder read on CT scan was a large bladder stone but is likely a fungus ball. Some of this material was irrigated out of the bladder with the Nakita syringe but in light of his urosepsis no further attempts were made to remove this mass to avoid the risk of further seeding of the bloodstream". Await final blood and urine cx results. Substitute meropenem for ertapenem, continue fluconazole and vancomycin. High level complexity medical decision making. Will follow. Total time 50 minutes on this day of encounter includes counseling, coordinating plan of care, record and documentation review before and after visit including documentation and time not explicitly included on EMR time stamp for accounting for open encounter. Images from the original note were not included. OCCUPATIONAL THERAPY [facility]'s Name/MRN: Anmol Franco Gail ([id number]) Date: 04/16/2024 OT evaluation and treat orders received. PT spoke to patient at bedside. Pt is from [facility] and is paraplegic with everett lift to electric w/c. Pt also requires assist with ADLs. Pt states receives very minimal therapy services at [facility]. Pt has no current acute OT needs and is at baseline LOF. Rec return to [facility]. Chelita Blanc OT ICU Progress Note Name: Anmol Franco Gail : 1960(63 y.o.) Date: 04/16/24 Team: MICU Chief Complaint: obstructed santana catheter, septic shock Subjective: Hospital Summary: 63 yoM with history of paraplegia after lumbar surgeries, [facility] resident, history of recurrent UTIs in setting of chronic santana catheter. Admitted with clogged urinary cathter. Found to be in septic shock with bilateral hydronephrosis, 3.4x3.1 cm calcified stone in the bladder. 04/14: taken emergently to the OR by urology and underwent cystoscopy, pyelogram, bilateral ureteral stent placement. 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 Patel. Started on broad spectrum abx as well as anidulafungin. Subjective/Interval Events: - no acute events overnight. Hemodynamically stable off pressors. On room air. Scheduled Meds:docusate, 50 mg, Oral, BID enoxaparin, 40 mg, SubCUTAneous, Daily ertapenem, 1 g, IntraVENous, q24h ferrous sulfate, 325 mg, Oral, Daily with breakfast fluconazole, 400 mg, IntraVENous, q24h insulin glargine, 45 Units, SubCUTAneous, Nightly insulin lispro, 0-6 Units, SubCUTAneous, TID WC And insulin lispro, 0-6 Units, SubCUTAneous, Nightly linaGLIPtin, 5 mg, Oral, Daily mirtazapine, 7.5 mg, Oral, Nightly polyethylene glycol (PEG) 3350, 17 g, Oral, Daily pregabalin, 200 mg, Oral, TID sodium chloride 0.9%, 10 mL, IntraVENous, 2 times per day tamsulosin, 0.4 mg, Oral, Daily vancomycin, 1,250 mg, IntraVENous, q12h Continuous Infusions: Objective: Last Vitals: BP MAP 132/83 (04/16/24522) 97 (04/16/24522) Arterial BP MAP Temp 36.5 C (97.7 F) (04/16/24522) Pulse 69 (04/16/24522) Resp 17 (04/16/24522) SpO2 99 % (04/16/24 05) Weight 93.1 kg (205 lb 4.8 oz) (04/14/24 1555) BMI Body mass index is 25.66 kg/m . I/O: 04/15 0700 - 04/16 659 In: 1836.3 [I.V.:86.3] Out: 1585 [Urine:1585] Ventilator: Oxygen Delivery: O2 Flow Rate (L/min): 2 L/min Invasive Lines / Tubes / Drains: Peripheral IV 04/14/24 Anterior;Right Antecubital (Active) Number of days: 0 Peripheral IV 04/14/24 Anterior;Right Forearm (Active) Number of days: 0 Urethral Catheter Coude (Active) Number of days: 0 Central Line Indication: NA - patient does not have a central line Santana Indications: Neurogenic bladder or chronic urinary retention and Hourly I&Os (Critical Care ONLY) Restraints: NA - patient is not restrained. Wounds: Wound/Incision 04/14/24 Pressure Injury Sacrum (Active) Date First Assessed/Time First Assessed: 04/14/242255 Primary Wound Type: Pressure Injury Location: Sacrum Wound/Incision 04/14/24 Foot Anterior;Right (Active) Date First Assessed/Time First Assessed: 04/14/242257 Present on Original Admission: Yes Location: Foot Wound Location Orientation: Anterior;Right Wound Description (Comments): Deep pressure injury Wound/Incision 04/14/24 Foot Anterior;Left (Active) Date First Assessed/Time First Assessed: 04/14/242258 Present on Original Admission: Yes Location: Foot Wound Location Orientation: Anterior;Left Constitutional: General Appearance []WDWN []Obese []Cachectic []Thin [x]Ill Eyes: Inspection of Pupils/Irises Pupils round and react: [x]Yes []No Sclera: []Icteric [x]Non-Icteric Inspection of Conjunctiva/Lids Conjunctiva: []Injected [x]Non-Injected Lids: [x]Intact []Lesion Present ENT/Mouth: External Inspection of ears/nose [x] Normal [] Scar/Lesion/Mass Inspection of teeth/lips/gums Dentition: [x][place] Teeth []Dentures Lips/Gums: [x]Intact []Lesion Present Mucosa: [][place] []Moist [x]Dry Neck: External Appearance Overall Appearance: [x]Normal []Lesion/Mass/Crepitus Present Trachea midline: [x]Yes []No Thyroid [x]Normal []Enlarged []Tender []Mass []Absent Respiratory: Respiratory effort []Labored [x]Non-Labored [] Mechanically-Ventilated Auscultation [x]Clear []Crackles []Wheezes []Rhonchi Diminished breath sounds at both bases Cardiovascular: Auscultation Rate: [x]Regular []Irregular []Tachycardia []Bradycardia Rhythm: [x]Regular []Irregular Murmur: []Present [x]Absent Extremities Peripheral Edema: []Present [x]Absent Varicosities: []Present [x]Absent Gastrointestinal: Abdomen Palpation: [x]Soft []Firm [x]Tender []Non-Tender []Distended [x]Non-distended Mass: []Present []Absent Bowel Sounds: []Present [x]Absent Hernia: []Present []Absent Liver/Spleen: []Hepatosplenomegaly []Organomegaly Absent No peritoneal signs Musculoskeletal: Inspection of Digits and Nails Cyanosis: []Present [x]Absent Clubbing: []Present [x]Absent Ischemia: []Present [x]Absent Infection: []Present []Absent Extremities Bilateral lower extremity weakness; no movement against gravity Skin: Inspection [x]Normal []Rash []Lesion []Ulcer Palpation [x]Warm []Cool [x]Dry []Clammy []Nodules []Induration []Skin-tightening Cap-Refill: [] <3 sec [] >3 seconds (delayed) Neurologic: GCS EYE: 4 - Opens spontaneously GCS MOTOR: 6 - Obeys commands for movement GCS VERBAL: 5 - Oriented to person, place, time Total GCS: 15 Cnii-xii intact Psych: Mental Status Alert: [x]Yes [] No Oriented: []x0 []X1 []X2 [x]x3 Mood/Affect [x]Normal []Flat []Agitated []Depressed []Anxious []Calm []Sedated []NAD [facility] Labs within last 24 hours- BMP: Recent Labs 04/14/24 1603 04/15/24 0407 04/16/24 0515 NA 137 135 137 K 3.9 3.6 4.3 CL 102 105 105 CO2 19* 19* 25 BUN 21* 25* 30* CREATININE 1.24 1.01 0.70 CALCIUM 9.0 7.9* 8.2* MG -- 1.7 2.0 PHOS -- 3.3 2.7 LFTs: Recent Labs 04/14/24 16004/14/24195504/15/2440604/16/24 0515 AST 25 -- 36 37 ALT 22 -- 34 26 PROT 7.8 -- 5.5* 6.0* ALBUMIN 4.0 -- 2.6* 2.8* BILITOT 1.4* -- 1.1 0.9 ALKPHOS 167* -- 168* 130* LIPASE 12* <10* -- -- Glucose: Recent Labs 04/14/24160204/14/24221104/14/24221904/14/24233104/15/2440604/15/24 0608 04/15/24 1229 04/15/24 17304/15/24201904/16/24 0515 04/16/24 0803 GLUCOSE 259* -- -- -- 286* -- -- -- -- 315* -- POCGLU -- 226* 210* 223* -- 285* 287* 342* 390* -- 323* BHYDRXBUT 1.08 -- -- -- -- -- -- -- -- -- -- Procal: Recent Labs 04/14/242317 PROCAL 27.06* CBC: Recent Labs 04/14/24231704/15/2440604/16/24 0515 WBC 5.4 11.2* 11.9* HGB 12.4* 11.9* 12.0* HCT 39.1* 36.2* 37.2* PLT 117* 107* 76* MCV 97.0 94.0 95.1 RDW 14.8 14.9 15.2* ABGs: Recent Labs 04/14/24 1730 [id number] Room Air Lactic Acid: Recent Labs 04/14/24231704/15/2440604/15/24 0844 LACTATE 4.9* 3.6* 2.0 INR: Recent Labs 04/14/242004 INR 2.7* Cardiac Injury Profile: Recent Labs 04/14/24 1603 TROPONINI <0.012 Labs in Last 3 months: Lab Results Component Value Date INR 2.7 (H) 04/14/2024 Microbiology- Urine Cx: Lab Results Component Value Date URINECX >100,000 CFU/mL Proteus mirabilis (A) 05/23/2023 URINECX 10,000-50,000 CFU/mL Pseudomonas aeruginosa (A) 05/23/2023 Blood Cx: Lab Results Component Value Date BLOODCX Gram-negative bacilli (AA) 04/14/2024 BLOODCX Gram-negative bacilli (AA) 04/14/2024 Sputum Cx: No results found for: RESPCULT Gram Stain: No results found for: LABGRAM PNA PCR: No results found for: HUMANMETAPNE COVID19: No results found for: COVID19 Legionella Ag: No results found for: "LEGIONELLAPN" Strep Ag: No results for input(s): "STREPPNEUMO" in the last 72 hours. Imaging- Reviewed personally including images and radiologist reports. Salient findings summarized in hospital summary and below. Assessment and Plan: Principal Problem: Septic shock (HCC) Assessment/Plan: Septic shock due to UTI and bacteremia (Proteus) Urinary obstruction with bilateral hydronephrosis s/p cystoscopy, pyelogram, bilateral ureteral stent placement. MK Metabolic/lactic acidosis - improved Normocytic anemia (mild) Thrombocytopenia, likely secondary to septic shock DMII with hyperglycemia Chronic paraplegia and neurogenic bladder requiring chronic indwelling urinary catheter Malnutrition, unspecified Hemodynamics stabilized; off pressors for over 24 hrs. Lactate cleared Blood cultures with Proteus; repeat cultures in process Continue ertapenem. 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 Awaiting urine cultures. Fluconazole per ID Return to OR pending per Urology for intervention on bladder stone MK resolved. Electrolytes and acid/base normal Hyperglycemia due to critical illness; received dexamethasone on 04/14. A1c = 6.3. On glargine and lispro ssi Platelets continue to trend down; thrombocytopneia present before receiving any heparin products; likely due to sepsis/shock. Hold antiplatelets and anticoagulants. SCDs for DVT ppx. Continue monitoring Coagulopathy on admission with INR of 2.7. no prior anticoagulation. LFTs okay except for low albumin and protein related to malnutrition. Recheck coags. Disposition: transfer to med/surg Pharmacy to Dose Vancomycin - Progress Note Recent Labs 04/14/24 1603 04/15/24 0407 04/16/24 0515 BUN 21* 25* 30* CREATININE 1.24 1.01 0.70 Lab Results Component Value Date VANCORANDOM 12.3 (L) 04/16/2024 Doses, serum creatinine, and vancomycin levels interfaced automatically to [employer] and data has been analyzed and interpreted. Infectious Diagnosis: UTI Est CrCl: 143 mL/min (Cockcroft-Gault) Assessment: Current regimen vancomycin 1250 mg every 12 hours. Predicted AUC = 431 mg/L*hr (goal 400-600 mg/L*hr) Plan: Is the current dose therapeutic? YES - obtain next level on 04/23 unless predicted AUC is sub-/supra-therapeutic or change in serum creatinine. Trend serum creatinine. Trend AUC using Bayesian Modeling. Orders placed. DATE: 04/16/24 TIME: 6:21 AM Carmel Collins RPh Available via Secure Chat Nutrition Assessment Type and Reason for Visit: Initial, Positive Nutrition Screen (patient is quadriplegic - has macerated coccyx) Nutrition Recommendations/Plan: per MNT protocol , diet increased to 75 gm carb/meal to meet needs. per MNT protocol , Ons initiated - send Ensure hi pro- bid( 160 alejandra, 16 gm pro/serving) Please document PO intakes- diet and ONS- consistently in the flowsheet to better assess intake adequacy. Suggest daily mvi Monitor labs, status, intake to reassess. Malnutrition Assessment: Malnutrition Status: At risk for malnutrition (Comment) (septic wounds) Context: Acute Illness Findings of the 6 clinical characteristics of malnutrition: Energy Intake: Mild decrease in energy intake (Comment) Weight Loss: Unable to assess Body Fat Loss: Unable to assess Muscle Mass Loss: Unable to assess Fluid Accumulation: Mild Extremities (+2 ble) Grain Spouter Strength: Not Performed Nutrition Assessment: per MD-pISTORY OF PRESENT ILLNESS: Anmol is a 63 y.o. male with , recurrent UTI at [facility] who presented to the ED today due to bilateral leg pain and clogged santana catheter. Increased pain in butt and back - started this morning. Intermittent, "fire pain", all day long. Has had this before - usually goes away after he takes his meds - feels likes a cramp, takes oxycodone. No Nausea, emesis, abdomen pain, headache or dizziness, chest pain or SOB. No recent sick contact No diarrhea or constipation. In the ED, VBG 7.2, AG 16, TB 1.4, glucose 259, LA 5.1, down to 3.9 with fluid. WBC 1.5, er case manger-npatient status from [facility] with sepsis. Urology consulted due to bilateral ureteral obstructing calculi. . OR yesterday. For cystoscopy, bilateral ureteral stent placement placement and santana catheter change. BC obtained and are positive. Urine cultures obtained and are pending. ID following. Is receiving iv antibiotic therapy. Levophed drip weaned off this afternoon. Met with patient. Introduced myself and explained my role. Patient with history of paraplegia and states has been at [facility] for a year and wishes to return upon discharge. per md-Acute, acute on chronic, unstable/uncontrolled chronic problems/diagnoses: Sepsis anuria secondary to recurrent URI Admit to telemetry Antibiotics: Ertapenem Vancomycin Follow-up cultures Status post bolus in emergency department Urology consulted, ID consulted for fungal mass Daily labs NPO Severe bilateral hydronephrosis with calcification in bladder lumen Plan for urology to stent . N.p.o. for immediate surgical intervention CAUTI precuations Lactic acidosis with an anion gap Serial lactate until cleared Constipation PEG daily and Colace History of sacral ulcer, Wound care consult Paralysis Elevated INR 2.7 Type II diabetic with hyperglycemia Continue Lyrica 200 mg 3 times daily Flexeril 10 mg 3 times daily for muscle spasms Hold Lantus Hypoglycemia protocol Linagliptin 5 mg in the morning substituted for Nesina Low-dose sliding scale Depression anxiety Remeron Hyperbilirubinemia Hypertension Hyperlipidemia Estimated Daily Nutrient Needs: Energy Requirements Based On: Kcal/kg Weight Used for Energy Requirements: Alverda Weight for Energy Calculation (kg): 82.41 kg Total Energy Requirements (kcals/day): 28-30 or 2307- 24 72 Weight Used for Protein Requirements: Alverda Weight in Kg Used for Protein Requirements: 82.41 kg Estimated Total Protein (g/day): 1-1.5 or 82-124 Estimated Daily Total Fluid (ml/day): or per MD Nutrition Related Findings: v=ca 7,9, alb 2.6, corrected ca 8.78 , glu 286, 04/15 hbaic 6.3, +2 ble, jack 16 Wound Type: Deep Tissue Injury, Stage II (coccyx- dti foot) Current Nutrition Therapies: Adult diet Regular; 5 carb choices (75 gm/meal) Current Oral Intake Average Meal Intake: 51-75% Average Supplements Intake: None Ordered Anthropometric Measures: Height: 190.5 cm (6' 3") Current Body Weight: 93.1 kg (205 lb 4.8 oz) (04/14) Weight Source: Bed Scale Usual Body Weight: 83 kg (183 lb) % Weight Change (Calculated): 12.2 Alverda Body Weight (lbs) (Calculated): 196 lbs Alverda Body Weight (Kg) (Calculated): 89 kg % Alverda Body Weight (Calculated): 104.7 % BMI (kg/m2) (Calculated): 25.7 Weight Adjustment For: Paraplegia % Weight Adjustment: 7.5 - Paraplegia Total Adjusted Percentage (Calculated): 7.5 Adjusted Alverda Body Weight (lbs) (Calculated): 181.3 lbs Adjusted Alverda Body Weight (kg) (Calculated): 82.41 kg Adjusted BMI (kg/m2) (Calculated): 27.6 BMI Categories: Overweight (BMI 25.0-29.9) Nutrition Diagnosis: Increased nutrient needs related to acute injury/trauma as evidenced by wounds, other (comment) (recent or) Altered nutrition-related lab values related to endocrine dysfuntion as evidenced by lab values (hbaic) Nutrition Interventions: Nutrition Education/Counseling: No recommendation at this time Coordination of Nutrition Care: Continue to monitor while inpatient, Feeding Assistance/Environment Change Plan of Care discussed with: RN Goals: Goals: Meet at least 75% of estimated needs Nutrition Monitoring and Evaluation: Behavioral-Environmental Outcomes: None Identified Food/Nutrient Intake Outcomes: Food and Nutrient Intake, Supplement Intake Physical Signs/Symptoms Outcomes: Biochemical Data, GI Status, Fluid Status or Edema, Meal Time Behavior, Hemodynamic Status, Nutrition Focused Physical Findings, Skin, Weight Discharge Planning: Continue current diet, Continue Oral Nutrition Supplement Isabel Lieberman RD Contact: *[phone] or secure chat ICU Progress Note Name: Anmol Franco Given : 1960(63 y.o.) Date: 04/15/24 Team: MICU Chief Complaint: obstructed santana catheter, septic shock Subjective: Hospital Summary: 63 yoM with history of paraplegia after lumbar surgeries, ECF resident, history of recurrent UTIs in setting of chronic santana catheter. Admitted with clogged urinary cathter. Found to be in septic shock with bilateral hydronephrosis, 3.4x3.1 cm calcified stone in the bladder. 04/14: taken emergently to the OR by urology and underwent cystoscopy, pyelogram, bilateral ureteral stent placement. 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 Patel. Started on broad spectrum abx as well as anidulafungin. Subjective/Interval Events: - today, the patient did require peripheral norepinephrine to support BP. Given more volume. Lactate subsequently normalized. Off presors. Renal function stable. Close to 1L UOP. Is hungry and toelrating diet. On room air Scheduled Meds:docusate, 50 mg, Oral, BID enoxaparin, 40 mg, SubCUTAneous, Daily ertapenem, 1 g, IntraVENous, q24h ferrous sulfate, 325 mg, Oral, Daily with breakfast fluconazole, 400 mg, IntraVENous, q24h [Held by provider] insulin glargine, 45 Units, SubCUTAneous, Nightly insulin lispro, 0-6 Units, SubCUTAneous, q6h linaGLIPtin, 5 mg, Oral, Daily mirtazapine, 7.5 mg, Oral, Nightly polyethylene glycol (PEG) 3350, 17 g, Oral, Daily pregabalin, 200 mg, Oral, TID sodium chloride 0.9%, 10 mL, IntraVENous, 2 times per day tamsulosin, 0.4 mg, Oral, Daily vancomycin, 1,250 mg, IntraVENous, q12h Continuous Infusions:norepinephrine in sodium chloride 0.9 %, 2-50 mcg/min, Last Rate: 5 mcg/min (04/15/24 07) Objective: Last Vitals: BP MAP 108/67 (04/15/24 08) 80 (04/15/24815) Arterial BP MAP Temp 37.1 C (98.8 F) (04/15/24 0411) Pulse 101 (04/15/24 0832) Resp 16 (04/15/24 08) SpO2 97 % (04/15/24831) Weight 93.1 kg (205 lb 4.8 oz) (04/14/24 1555) BMI Body mass index is 25.66 kg/m . I/O: 04/14 0700 - 04/15 0659 In: 3791.8 [I.V.:87.8] Out: 295 [Urine:295] Ventilator: Oxygen Delivery: O2 Flow Rate (L/min): 2 L/min Invasive Lines / Tubes / Drains: Peripheral IV 04/14/24 Anterior;Right Antecubital (Active) Number of days: 0 Peripheral IV 04/14/24 Anterior;Right Forearm (Active) Number of days: 0 Urethral Catheter Coude (Active) Number of days: 0 Central Line Indication: NA - patient does not have a central line Santana Indications: Neurogenic bladder or chronic urinary retention and Hourly I&Os (Critical Care ONLY) Restraints: NA - patient is not restrained. Wounds: Wound/Incision 04/14/24 Pressure Injury Sacrum (Active) Date First Assessed/Time First Assessed: 07/08/28 2256 Primary Wound Type: Pressure Injury Location: Sacrum Wound/Incision 04/14/24 Foot Anterior;Right (Active) Date First Assessed/Time First Assessed: 04/14/242257 Present on Original Admission: Yes Location: Foot Wound Location Orientation: Anterior;Right Wound Description (Comments): Deep pressure injury Wound/Incision 04/14/24 Foot Anterior;Left (Active) Date First Assessed/Time First Assessed: 04/14/242258 Present on Original Admission: Yes Location: Foot Wound Location Orientation: Anterior;Left Constitutional: General Appearance []WDWN []Obese []Cachectic []Thin [x]Ill Eyes: Inspection of Pupils/Irises Pupils round and react: [x]Yes []No Sclera: []Icteric [x]Non-Icteric Inspection of Conjunctiva/Lids Conjunctiva: []Injected [x]Non-Injected Lids: [x]Intact []Lesion Present ENT/Mouth: External Inspection of ears/nose [x] Normal [] Scar/Lesion/Mass Inspection of teeth/lips/gums Dentition: [x][place] Teeth []Dentures Lips/Gums: [x]Intact []Lesion Present Mucosa: [][place] []Moist [x]Dry Neck: External Appearance Overall Appearance: [x]Normal []Lesion/Mass/Crepitus Present Trachea midline: [x]Yes []No Thyroid [x]Normal []Enlarged []Tender []Mass []Absent Respiratory: Respiratory effort []Labored [x]Non-Labored [] Mechanically-Ventilated Auscultation [x]Clear []Crackles []Wheezes []Rhonchi Diminished breath sounds at both bases Cardiovascular: Auscultation Rate: [x]Regular []Irregular []Tachycardia []Bradycardia Rhythm: [x]Regular []Irregular Murmur: []Present [x]Absent Extremities Peripheral Edema: []Present [x]Absent Varicosities: []Present [x]Absent Gastrointestinal: Abdomen Palpation: [x]Soft []Firm [x]Tender []Non-Tender []Distended [x]Non-distended Mass: []Present []Absent Bowel Sounds: []Present [x]Absent Hernia: []Present []Absent Liver/Spleen: []Hepatosplenomegaly []Organomegaly Absent No peritoneal signs Musculoskeletal: Inspection of Digits and Nails Cyanosis: []Present [x]Absent Clubbing: []Present [x]Absent Ischemia: []Present [x]Absent Infection: []Present []Absent Extremities Bilateral lower extremity weakness; no movement against gravity Skin: Inspection [x]Normal []Rash []Lesion []Ulcer Palpation [x]Warm []Cool [x]Dry []Clammy []Nodules []Induration []Skin-tightening Cap-Refill: [] <3 sec [] >3 seconds (delayed) Neurologic: GCS EYE: 4 - Opens spontaneously GCS MOTOR: 6 - Obeys commands for movement GCS VERBAL: 5 - Oriented to person, place, time Total GCS: 15 Cnii-xii intact Psych: Mental Status Alert: [x]Yes [] No Oriented: []x0 []X1 []X2 [x]x3 Mood/Affect [x]Normal []Flat []Agitated []Depressed []Anxious []Calm []Sedated []NAD Select Labs within last 24 hours- BMP: Recent Labs 04/14/24160204/15/24406 NA 137 135 K 3.9 3.6 CL 102 105 CO2 19* 19* BUN 21* 25* CREATININE 1.24 1.01 CALCIUM 9.0 7.9* MG -- 1.7 PHOS -- 3.3 LFTs: Recent Labs 04/14/24 16004/14/24195504/15/24 0407 AST 25 -- 36 ALT 22 -- 34 PROT 7.8 -- 5.5* ALBUMIN 4.0 -- 2.6* BILITOT 1.4* -- 1.1 ALKPHOS 167* -- 168* LIPASE 12* <10* -- Glucose: Recent Labs 04/14/24 1603 04/14/24 2212 04/14/24 2220 04/14/24 2332 04/15/24 0407 04/15/24 0608 GLUCOSE 259* -- -- -- 286* -- POCGLU -- 226* 210* 223* -- 285* BHYDRXBUT 1.08 -- -- -- -- -- Procal: Recent Labs 04/14/24 2318 PROCAL 27.06* CBC: Recent Labs 04/14/24 1603 04/14/24 1730 04/14/24 2318 04/15/24 0407 WBC 1.5* -- 5.4 11.2* HGB 15.2 13.7 12.4* 11.9* HCT 47.3 -- 39.1* 36.2* PLT 183 -- 117* 107* MCV 95.6 -- 97.0 94.0 RDW 14.8 -- 14.8 14.9 ABGs: Recent Labs 04/14/24 173 [id number] Room Air Lactic Acid: Recent Labs 04/14/24 1859 04/14/24 2318 04/15/24 0407 LACTATE 3.9* 4.9* 3.6* INR: Recent Labs 04/14/242004 INR 2.7* Cardiac Injury Profile: Recent Labs 04/14/241602 TROPONINI <0.012 Labs in Last 3 months: Lab Results Component Value Date INR 2.7 (H) 04/14/2024 Microbiology- Urine Cx: Lab Results Component Value Date URINECX >100,000 CFU/mL Proteus mirabilis (A) 05/23/2023 URINECX 10,000-50,000 CFU/mL Pseudomonas aeruginosa (A) 05/23/2023 Blood Cx: Lab Results Component Value Date BLOODCX Gram-negative bacilli (AA) 04/14/2024 BLOODCX Gram-negative bacilli (AA) 04/14/2024 Sputum Cx: No results found for: RESPCULT Gram Stain: No results found for: LABGRAM PNA PCR: No results found for: HUMANMETAPNE COVID19: No results found for: COVID19 Legionella Ag: No results found for: "LEGIONELLAPN" Strep Ag: No results for input(s): "STREPPNEUMO" in the last 72 hours. Imaging- Reviewed personally including images and radiologist reports. Salient findings summarized in hospital summary and below. Assessment and Plan: Principal Problem: Septic shock (HCC) Assessment/Plan: Septic shock due to UTI and bacteremia (Proteus) Urinary obstruction with bilateral hydronephrosis s/p cystoscopy, pyelogram, bilateral ureteral stent placement. MK Metabolic/lactic acidosis - improved Normocytic anemia (mild) Thrombocytopenia, likely secondary to septic shock Chronic paraplegia and neurogenic bladder requiring chronic indwelling urinary catheter Hemodynamics stabilized; off pressors, lactate cleared Blood cultures with Proteus Continue ertapenem. 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 Awaiting urine cultures Fluconazole per ID Return to OR pending per Urology for MK improving Disposition: Remain in ICU Status Critical Care Time: 40 minutes Total critical care time caring for this patient with life threatening, unstable organ failure, including direct patient contact, management of life support systems, review of data including imaging and labs, discussions with other team members and physicians, excluding procedures. Images from the original note were not included. PHYSICAL THERAPY [facility] Name/MRN: Anmol Franco Given ([id number]) Date: 04/15/2024 PT evaluation and treat orders received. Spoke to patient at bedside. Pt is from [facility] and is paraplegic with everett lift to electric w/c. Pt states receives very minimal therapy services at [facility]. Pt has no current acute PT needs and is at baseline LOF. Rec return to ECF. Nakita Kwan PT Images from the original note were not included. [facility] Urology Inpatient Progress Note 04/15/2024 at 9:33 AM PATIENT NAME: Anmol Reynolds DATE OF : 1960 ADMISSION DATE: 04/14/2024 3:51 PM Room#: [id number] A Assessment 63-year-old male with urosepsis, bilateral ureteral obstructing calculi, and bladder calculus POD#1 s/p cystoscopy, bilateral ureteral stent placement and santana catheter change Plan Continue to trend WBC; increased today. WBC 11.2 (5.4) Lactic acid improving. Lactic acid 3.6 (5.1) Blood and urine culture pending Continue broad-spectrum antibiotics pending blood and urine culture results. Continue to monitor renal function; improved today. Creatinine 1.01 (1.24) Continue Santana catheter to straight drain. Patient has chronic Santana catheter so will remain in place upon discharge. Discussed with patient that urology will set up outpatient definitive stone surgery. Explained to patient that he will need to have a minimum of 2 weeks of appropriate antibiotic therapy before definitive stone treatment can be done safely. Patient verbalized understanding and agrees to the above plan. Urology will sign off at this time. Please Secure Chat on-call provider with questions, concerns or changes in patient's urologic status. Joe Hammer, DNP, [employer], [facility] Subjective: Interval History: No overnight issues. Denies abdominal pain, nausea, vomiting, diarrhea, constipation, fevers, or chills. He does feel that his abdomen is a little distended than usual. Last bowel movement noted yesterday. Patient does feel fatigued. Past Medical History: Past Medical History: Diagnosis Date Abscess, perineum Chronic back pain Hip sprain Hyperlipidemia Hypertension Neuropathy Osteoarthritis Sciatica Type 2 diabetes mellitus without complication ([facility]) ([facility]) Objective: Vitals: BP 108/67 Pulse 92 Temp 37.1 C (98.8 F) (Oral) Resp 12 Ht 6' 3" (1.905 m) Wt 205 lb 4.8 oz (93.1 kg) SpO2 94% BMI 25.66 kg/m Physical Exam Vitals and nursing note reviewed. Constitutional: General: He is not in acute distress. Appearance: He is not ill-appearing or toxic-appearing. Abdominal: General: There is no distension. Palpations: Abdomen is soft. Tenderness: There is no abdominal tenderness. Genitourinary: Comments: Santana catheter in place draining dark yellow output Neurological: Mental Status: He is alert. Psychiatric: Mood and Affect: Mood normal. Behavior: Behavior normal. LABS: CBC: Recent Labs 04/14/24 1603 04/14/24 1730 04/14/24 2318 04/15/24 0407 WBC 1.5* -- 5.4 11.2* HGB 15.2 13.7 12.4* 11.9* HCT 47.3 -- 39.1* 36.2* PLT 183 -- 117* 107* Lab Results Component Value Date LACTATE 2.0 04/15/2024 PROCAL 27.06 (H) 04/14/2024 BMP: Recent Labs 04/14/24 1603 04/15/24 0407 NA 137 135 K 3.9 3.6 CL 102 105 CO2 19* 19* BUN 21* 25* CREATININE 1.24 1.01 GLUCOSE 259* 286* CALCIUM 9.0 7.9* ANIONGAP 16* 10 PT/INR: Recent Labs 04/14/242004 PROTIME 27.1* INR 2.7* Blood and urine cultures: Pending Medications: Current Facility-Administered Medications: acetaminophen (Tylenol) tablet 650 mg, 650 mg, Oral, q6h PRN OR acetaminophen (Tylenol) suppository 650 mg, 650 mg, Rectal, q6h PRN, Orquidea Marti MD cyclobenzaprine (Flexeril) tablet 10 mg, 10 mg, Oral, TID PRN, Orquidea Marti MD dextrose 5 % infusion, 100 mL/hr, IntraVENous, PRN, Orquidea Marti MD dextrose 50 % solution 12.5 g, 12.5 g, IntraVENous, PRN, Orquidea Marti MD docusate (Colace) 50 MG/5ML liquid 50 mg, 50 mg, Oral, BID, Orquidea Marti MD, 50 mg at 04/15/24 0849 enoxaparin (Lovenox) syringe 40 mg, 40 mg, SubCUTAneous, Daily, Orquidea Marti MD, 40 mg at 04/15/24 0849 ertapenem (INVanz) 1 g in sodium chloride 0.9 % 50 mL IVPB Mini-Bag Plus, 1 g, IntraVENous, q24h, Orquidea Marti MD, Stopped at 04/15/24 0126 ferrous sulfate tablet 325 mg, 325 mg, Oral, Daily with breakfast, Orquidea Marti MD, 325 mg at 04/15/24 0849 fluconazole in NS (Diflucan) IVPB 400 mg, 400 mg, IntraVENous, q24h, Brad Mujica APRN - DOCUMENT MANAGEMENT TECHNICIAN, Stopped at 04/15/24 0254 glucagon (human recombinant) injection 1 mg, 1 mg, IntraMUSCular, PRN, Orquidea Marti MD glucose oral gel 15 g, 15 g, Oral, PRN, Orquidea Marti MD HYDROmorphone (Dilaudid) injection 1 mg, 1 mg, IntraVENous, q4h PRN, Joan Patel MD [Held by provider] insulin glargine (Lantus) injection 45 Units, 45 Units, SubCUTAneous, Nightly, Orquidea Marti MD Insulin Lispro (Humalog) injection 0-6 Units, 0-6 Units, SubCUTAneous, q6h, 3 Units at 04/15/24 0630 AND [DISCONTINUED] Insulin Lispro (Humalog) injection 0-6 Units, 0-6 Units, SubCUTAneous, Nightly, Orquidea Marti MD linaGLIPtin (Tradjenta) tablet 5 mg, 5 mg, Oral, Daily, Orquidea Marti MD, 5 mg at 04/15/24 0849 mirtazapine (Remeron) tablet 7.5 mg, 7.5 mg, Oral, Nightly, Orquidea Marti MD, 7.5 mg at 04/15/24 0057 naloxone (Narcan) injection 0.4 mg, 0.4 mg, IntraVENous, q5 min PRN, Joan Patel MD norepinephrine (Levophed) 4 mg in 0.9% sodium chloride 250 mL infusion (Xec-Omilyi-Shzwh) (premix), 2-50 mcg/min, IntraVENous, Continuous, Pedro Luis Matos MD, Last Rate: 18.75 mL/hr at 04/15/24 07, 5 mcg/min at 04/15/24 0703 ondansetron ODT (Zofran-ODT) disintegrating tablet 4 mg, 4 mg, Oral, q8h PRN OR ondansetron (Zofran) injection 4 mg, 4 mg, IntraVENous, q6h PRN, Orquidea Marti MD oxyCODONE (Roxicodone) immediate release tablet 15 mg, 15 mg, Oral, 4x daily PRN, Orquidea Marti MD polyethylene glycol (PEG) 3350 (Miralax) packet 17 g, 17 g, Oral, Daily, Orquidea Marti MD, 17 g at 04/15/24 0849 pregabalin (Lyrica) capsule 200 mg, 200 mg, Oral, TID, Orquidea Marti MD, 200 mg at 04/15/24 0849 sodium chloride 0.9 % infusion, 5-250 mL/hr, IntraVENous, PRN, Orquidea Marti MD sodium chloride 0.9% (NS) flush 10 mL, 10 mL, IntraVENous, 2 times per day, Orquidea Marti MD, 10 mL at 04/15/24 0900 sodium chloride 0.9% (NS) flush 10 mL, 10 mL, IntraVENous, PRN, Orquidea Marti MD tamsulosin (Flomax) 24 hr capsule 0.4 mg, 0.4 mg, Oral, Daily, Orquidea Marti MD, 0.4 mg at 04/15/24 0849 vancomycin IVPB 1250 mg in 250 mL NS (premix), 1,250 mg, IntraVENous, q12h, Orquidea Marti MD Imaging: === 04/14/24 === CT ABDOMEN PELVIS WO IV CONTRAST - Impression - 1. Some mild peripancreatic fat stranding and edema is present at the level of the head and uncinate process, suggesting possible low-grade pancreatitis. Sequela of chronic pancreatitis including coarse calcifications throughout the pancreas. 2. Severe right hydroureteronephrosis, with a string/2.3 cm length calcifications within the mid ureter. 3. Moderate left hydroureteronephrosis with 3 separate 3 mm calcifications within the proximal most ureter. 4. Nonspecific rectal wall thickening. Increased fecal residue throughout the colon is suggestive of constipation. 5. Within the urinary bladder lumen, there is a 3.4 x 3.1 cm calcification. 6. Tiny bilateral pleural effusions with associated atelectasis, left more extensive than right. Report Dictated on Electronically Signed By: Joe Monroy MD Electronically Signed Date/Time: 04/14/2024 7:37 PM EDT Please note that portions of this chart were dictated using [employer] voice recognition software. It is possible that typos and/or omissions and/or substitutions of words and/or phrases may exist, which may alter the intended meaning of the dictating provider. On this date 04/15/2024 I have spent 35 minutes [id number] time, reviewing previous notes, test results and discussing the diagnosis and importance of compliance with the treatment plan as well as documenting on the day of the visit. Pharmacy to Dose Vancomycin - Progress Note Recent Labs 04/14/24 1603 04/15/24 0407 BUN 21* 25* CREATININE 1.24 1.01 Lab Results Component Value Date VANCORANDOM 10.8 (L) 04/15/2024 Doses, serum creatinine, and vancomycin levels interfaced automatically to [employer] and data has been analyzed and interpreted. Infectious Diagnosis: UTI Est CrCl: 90 mL/min (Cockcroft-Gault) Assessment: Current regimen vancomycin 1000 mg every 12 hours. Predicted AUC = 403 mg/L*hr (goal 400-600 mg/L*hr) Plan: Is the current dose therapeutic? [] Yes - obtain next level on unless predicted AUC is sub-/supra-therapeutic or change in serum creatinine. [x] No - change current regimen to vancomycin 1250 mg every 12 hours for predicted AUC 499 mg/L*hr. Obtain next level on 04-16. Trend serum creatinine. Trend AUC using Bayesian Modeling. Orders placed. DATE: 04/15/24 TIME: 6:47 AM Elliot Mcdonald RPh Clinical Pharmacist Available via Secure Chat ICU interval note: Pt seen by ICU attending earlier in the daytime during patient ER encounter, please refer to consult note for additional plan of care. At that time, pt was non-toxic appearing. He was treated with sepsis fluid bolus and antibiotics. Hemodynamics were stable and LA was trending down. Instructions were provided to admit to medical floor if LA was trending down on repeat lab work that was pending. Arrangements were made and pt admitted to medicine service. Just afterwards, CT abd/pelvis resulting indicating bladder obstruction. Urology took patient to OR, from ER this evening. Cystoscopy pyelogram performed with stents placed in both ureters due to obstruction. Additionally, large fungus collection observed in ureters as well as ball shaped collection in bladder. Large collection of puss irrigated. He required additional volume and vasopressors while in procedure due to septic shock. We will transfer to ICU service for further observation and management. In PACU he came off of pressors and hemodynamics have been satisfactory. Will continue broad antibx coverage, add fungal coverage, expand infectious workup- adding fungal cultures, respiratory and urine cultures. Plan to consult infectious disease to follow. Ongoing ICU care/mgmt documented in this encounter [facility] 04-17-2024 Consult note Associated Order (s): PHARMACY TO DOSE VANCO Vancomycin therapy has been discontinued by Dr. Moyer on 04-17. Thank you for the consult. Pharmacy signing off for vancomycin dosing. Carmel Collins RPh, Date: 04/17/24 Time: 1:40 PM Associated Order(s): IP CONSULT TO INFECTIOUS DISEASES Images from the original note were not included. [facility] - Infectious Diseases Attending Consult Note Reason for Consult: Septic shock and proteus bacteremia, Bilateral ureteral obstruction s/p cystoscopy, bilateral stent change and Santana cath insertion on 04/14/24. History of Present Illness: 63 y/o male was admitted to ICU on 04/14/24 with a clogged santana catheter and both leg pain; on presentation, he had a temp of 99.6 F with tachycardia (P 121), hypotension (BP 82/55), tachypneic (R 20-30), his BP further decreased to 63/51; CT scan of abdomen and pelvis showed bilateral ureteral obstruction with bilateral hydronephrosis, he was brought to the operating room for emergent stent placement, and a santaan catheter was placed to straight drain. 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 He has h/o paraplegia, chronic bilateral leg pain related to previous spinal cord injury / epidural abscess. He was examined; notes, labs, imaging were reviewed and treatment plan was discussed. Past Medical History: Past Medical History: Diagnosis Date Abscess, perineum Chronic back pain Hip sprain Hyperlipidemia Hypertension Neuropathy Osteoarthritis Sciatica Type 2 diabetes mellitus without complication (CMS/HCC) (HCC) Past Surgical History: Past Surgical History: Procedure Laterality Date ANKLE SURGERY Right He has a titanium plate to the right ankle KNEE SURGERY ACL LAMINECTOMY Left 10/24/2020 LEFT BILATERAL L2-3-4-5 DECOMPRESSION performed by Opal Vigil MD at [facility] OR ORTHOPEDIC SURGERY PLACE URETAL STENT PERC PRE-EXIST TRACT S&I (HISTORICAL) Bilateral 04/14/2024 Dr. Patel/Bashir Current Medications: Current Facility-Administered Medications Medication Dose Route Frequency Provider Last Rate Last Admin acetaminophen (Tylenol) tablet 650 mg 650 mg Oral q6h PRN Orquidea Marti MD Or acetaminophen (Tylenol) suppository 650 mg 650 mg Rectal q6h PRN Orquidea Marti MD cyclobenzaprine (Flexeril) tablet 10 mg 10 mg Oral TID PRN Orquidea Marti MD dextrose 5 % infusion 100 mL/hr IntraVENous PRN Orquidea Marti MD dextrose 50 % solution 12.5 g 12.5 g IntraVENous PRN Orquidea Marti MD docusate (Colace) 50 MG/5ML liquid 50 mg 50 mg Oral BID Orquidea Marti MD 50 mg at 04/15/24 0849 enoxaparin (Lovenox) syringe 40 mg 40 mg SubCUTAneous Daily Orquidea Marti MD 40 mg at 04/15/24 0849 ertapenem (INVanz) 1 g in sodium chloride 0.9 % 50 mL IVPB Mini-Bag Plus 1 g IntraVENous q24h Orquidea Marti MD Stopped at 04/15/24 0126 ferrous sulfate tablet 325 mg 325 mg Oral Daily with breakfast Orquidea Marti MD 325 mg at 04/15/24 0849 fluconazole in NS (Diflucan) IVPB 400 mg 400 mg IntraVENous q24h Brad Mujica APRN - DOCUMENT MANAGEMENT TECHNICIAN Stopped at 04/15/24 0254 glucagon (human recombinant) injection 1 mg 1 mg IntraMUSCular PRN Orquidea Marti MD glucose oral gel 15 g 15 g Oral PRN Orquidea Marti MD HYDROmorphone (Dilaudid) injection 1 mg 1 mg IntraVENous q4h PRN Joan Patel MD [Held by provider] insulin glargine (Lantus) injection 45 Units 45 Units SubCUTAneous Nightly Orquidea Marti MD Insulin Lispro (Humalog) injection 0-6 Units 0-6 Units SubCUTAneous q6h Brad Mujica APRN - DOCUMENT MANAGEMENT TECHNICIAN 3 Units at 04/15/24 1334 Insulin Lispro (Humalog) injection 0-6 Units 0-6 Units SubCUTAneous TID WC Pedro Luis Matos MD And Insulin Lispro (Humalog) injection 0-6 Units 0-6 Units SubCUTAneous Nightly Pedro Luis Matos MD linaGLIPtin (Tradjenta) tablet 5 mg 5 mg Oral Daily Orquidea Marti MD 5 mg at 04/15/24 0849 mirtazapine (Remeron) tablet 7.5 mg 7.5 mg Oral Nightly Orquidea Marti MD 7.5 mg at 04/15/24 0057 naloxone (Narcan) injection 0.4 mg 0.4 mg IntraVENous q5 min PRN Joan Patel MD norepinephrine (Levophed) 4 mg in 0.9% sodium chloride 250 mL infusion (Yir-Iobych-Rzebl) (premix) 2-50 mcg/min IntraVENous Continuous Pedro Luis Matos MD Stopped at 04/15/24 1220 ondansetron ODT (Zofran-ODT) disintegrating tablet 4 mg 4 mg Oral q8h PRN Orquidea Marti MD Or ondansetron (Zofran) injection 4 mg 4 mg IntraVENous q6h PRN Orquidea Marti MD oxyCODONE (Roxicodone) immediate release tablet 15 mg 15 mg Oral 4x daily PRN Orquidea Marti MD polyethylene glycol (PEG) 3350 (Miralax) packet 17 g 17 g Oral Daily Orquidea Marti MD 17 g at 04/15/24 0849 pregabalin (Lyrica) capsule 200 mg 200 mg Oral TID Orquidea Marti MD 200 mg at 04/15/24 1334 sodium chloride 0.9 % infusion 5-250 mL/hr IntraVENous PRN Orquidea Marti MD sodium chloride 0.9% (NS) flush 10 mL 10 mL IntraVENous 2 times per day Orquidea Marti MD 10 mL at 04/15/24 0900 sodium chloride 0.9% (NS) flush 10 mL 10 mL IntraVENous PRN Orquidea Marti MD tamsulosin (Flomax) 24 hr capsule 0.4 mg 0.4 mg Oral Daily Orquidea Marti MD 0.4 mg at 04/15/24 0849 vancomycin IVPB 1250 mg in 250 mL NS (premix) 1,250 mg IntraVENous q12h Orquidea Marti MD Allergies: No Known Allergies Social History: Social History Socioeconomic History Marital status: Spouse name: Not on file Number of children: Not on file Years of education: Not on file Highest education level: Not on file Occupational History Not on file Tobacco Use Smoking status: Every Day Smokeless tobacco: Never Substance and Sexual Activity Alcohol use: No Drug use: No Sexual activity: Not on file Other Topics Concern Not on file Social History Narrative Not on file Social Determinants of Health Financial Resource Strain: Low Risk (04/24/2023) [facility] Overall Financial Resource Strain (CARDIA) Difficulty of Paying Living Expenses: Not hard at all Food Insecurity: No Food Insecurity (04/14/2024) Hunger Vital Sign Worried About Running Out of Food in the Last Year: Never true Ran Out of Food in the Last Year: Never true Transportation Needs: No Transportation Needs (04/14/2024) PRAPARE - Transportation Lack of Transportation (Medical): No Lack of Transportation (Non-Medical): No Physical Activity: Not on file Stress: Not on file Social Connections: Not on file Intimate Partner Violence: Not At Risk (04/15/2024) Humiliation, Afraid, Rape, and Kick questionnaire Fear of Current or Ex-Partner: No Emotionally Abused: No Physically Abused: No Sexually Abused: No Housing Stability: Low Risk (04/14/2024) Housing Stability Vital Sign Unable to Pay for Housing in the Last Year: No Number of Times Moved in the Last Year: 0 Homeless in the Last Year: No Family History: No family history on file. Review of Systems: Review of Systems Constitutional: Positive for activity change, diaphoresis, fatigue and fever. HENT: Negative for ear pain and sinus pain. Eyes: Negative for pain. Respiratory: Negative for cough. Cardiovascular: Positive for palpitations. Gastrointestinal: Negative for abdominal pain. Endocrine: Negative for polydipsia. Genitourinary: Positive for difficulty urinating. Skin: Negative for color change. Neurological: Negative for headaches. Psychiatric/Behavioral: Negative for confusion. Vitals: Patient Vitals for the past 24 hrs: BP Temp Temp src Pulse Resp SpO2 Height Weight 04/15/24 1234 -- -- -- 78 14 94 % -- -- 04/15/24 1233 -- -- -- 77 13 95 % -- -- 04/15/24 1232 -- -- -- 80 15 96 % -- -- 04/15/24 1231 -- -- -- 79 14 96 % -- -- 04/15/24 1230 -- -- -- 85 17 95 % -- -- 04/15/24 1229 -- -- -- 84 16 95 % -- -- 04/15/24 1228 -- -- -- 80 16 96 % -- -- 04/15/24 1227 -- -- -- 78 15 96 % -- -- 04/15/24 1226 -- -- -- 82 14 97 % -- -- 04/15/24 1225 -- -- -- 79 16 97 % -- -- 04/15/24 1224 -- -- -- 81 17 97 % -- -- 04/15/24 1223 -- -- -- 77 16 97 % -- -- 04/15/24 1222 -- -- -- 78 14 97 % -- -- 04/15/24 1221 -- -- -- 78 14 97 % -- -- 04/15/24 1220 -- -- -- 74 15 98 % -- -- 04/15/24 1219 -- -- -- 77 16 97 % -- -- 04/15/24 1218 -- -- -- 72 12 97 % -- -- 04/15/24 1217 -- -- -- 71 14 98 % -- -- 04/15/24 1216 -- -- -- 74 (!) 10 98 % -- -- 04/15/24 1215 -- -- -- 74 13 98 % -- -- 04/15/24 1214 -- -- -- 73 12 98 % -- -- 04/15/24 1213 -- -- -- 70 13 98 % -- -- 04/15/24 1212 -- -- -- 72 13 98 % -- -- 04/15/24 1211 -- -- -- 73 14 97 % -- -- 04/15/24 1210 -- -- -- 73 13 98 % -- -- 04/15/24 1209 -- -- -- 71 13 98 % -- -- 04/15/24 120 -- -- -- 73 15 98 % -- -- 04/15/24 120 -- -- -- 73 (!) 11 98 % -- -- 04/15/24 1206 -- -- -- 74 13 98 % -- -- 04/15/24 1205 -- -- -- 70 13 98 % -- -- 04/15/24 1204 -- -- -- 75 16 99 % -- -- 04/15/24 1203 -- -- -- 73 13 97 % -- -- 04/15/24 1202 132/83 -- -- 70 12 98 % -- -- 04/15/24 1200 -- -- -- 73 14 98 % -- -- 04/15/24 1159 -- -- -- 73 13 98 % -- -- 04/15/24 1158 -- -- -- 70 12 99 % -- -- 04/15/24 1157 -- -- -- 77 12 97 % -- -- 04/15/24 1156 -- -- -- 73 (!) 11 97 % -- -- 04/15/24 1155 -- -- -- 70 (!) 10 97 % -- -- 04/15/24 1154 -- -- -- 70 (!) 10 97 % -- -- 04/15/24 1153 -- -- -- 72 (!) 10 98 % -- -- 04/15/24 1152 -- -- -- 75 (!) 11 100 % -- -- 04/15/24 1151 -- -- -- 72 (!) 11 97 % -- -- 04/15/24 1150 -- -- -- 70 12 98 % -- -- 04/15/24 1149 -- -- -- 71 (!) 9 98 % -- -- 04/15/24 1148 -- -- -- 73 (!) 11 98 % -- -- 04/15/24 1147 -- -- -- 74 15 98 % -- -- 04/15/24 1146 -- -- -- 72 13 98 % -- -- 04/15/24 1145 -- -- -- 74 14 98 % -- -- 04/15/24 114 -- -- -- 69 (!) 11 98 % -- -- 04/15/24 1143 -- -- -- 69 (!) 10 99 % -- -- 04/15/24 114 -- -- -- 79 16 100 % -- -- 04/15/24 1141 -- -- -- 76 16 98 % -- -- 04/15/24 1140 -- -- -- 81 20 97 % -- -- 04/15/24 1139 -- -- -- 70 (!) 11 97 % -- -- 04/15/24 1138 -- -- -- 71 (!) 10 98 % -- -- 04/15/24 1137 -- -- -- 73 12 97 % -- -- 04/15/24 1136 -- -- -- 72 14 96 % -- -- 04/15/24 1135 -- -- -- 74 12 98 % -- -- 04/15/24 1134 -- -- -- 71 (!) 10 97 % -- -- 04/15/24 1133 -- -- -- 71 (!) 10 97 % -- -- 04/15/24 1132 129/85 -- -- 75 13 97 % -- -- 04/15/24 1131 -- -- -- 74 14 97 % -- -- 04/15/24 1130 -- -- -- 77 18 98 % -- -- 04/15/24 1129 -- -- -- 73 (!) 10 96 % -- -- 04/15/24 1128 -- -- -- 70 (!) 10 96 % -- -- 04/15/24 1127 -- -- -- 70 (!) 10 96 % -- -- 04/15/24 1126 -- -- -- 70 (!) 10 96 % -- -- 04/15/24 1125 -- -- -- 70 (!) 10 96 % -- -- 04/15/24 1124 -- -- -- 70 (!) 11 96 % -- -- 04/15/24 1123 -- -- -- 71 (!) 11 96 % -- -- 04/15/242 -- -- -- 70 (!) 11 96 % -- -- 04/15/24 1121 -- -- -- 71 (!) 11 96 % -- -- 04/15/24 1120 -- -- -- 70 (!) 11 96 % -- -- 04/15/24 1119 -- -- -- 71 (!) 11 96 % -- -- 04/15/24 1118 -- -- -- 71 (!) 10 95 % -- -- 04/15/24 1117 -- -- -- 71 (!) 11 95 % -- -- 04/15/24 1116 -- -- -- 72 (!) 11 95 % -- -- 04/15/24 1115 -- -- -- 71 (!) 10 95 % -- -- 04/15/24 1114 -- -- -- 71 (!) 10 95 % -- -- 04/15/24 1113 -- -- -- 71 (!) 11 95 % -- -- 04/15/24 1112 -- -- -- 71 (!) 11 96 % -- -- 04/15/24 1111 -- -- -- 71 (!) 11 95 % -- -- 04/15/24 1110 -- -- -- 71 (!) 11 96 % -- -- 04/15/24 1109 -- -- -- 70 (!) 11 95 % -- -- 04/15/24 1108 -- -- -- 71 (!) 11 95 % -- -- 04/15/24 1107 -- -- -- 72 (!) 11 95 % -- -- 04/15/24 1106 -- -- -- 72 (!) 11 95 % -- -- 04/15/24 1105 -- -- -- 72 (!) 10 96 % -- -- 04/15/24 1104 -- -- -- 72 (!) 11 96 % -- -- 04/15/24 1103 -- -- -- 73 12 96 % -- -- 04/15/24 1102 97/65 -- -- 73 (!) 11 96 % -- -- 04/15/24 1101 -- -- -- 75 (!) 11 96 % -- -- 04/15/24 1100 -- -- -- 74 (!) 11 97 % -- -- 04/15/24 1059 -- -- -- 71 (!) 11 97 % -- -- 04/15/24 1058 -- -- -- 69 (!) 11 97 % -- -- 04/15/24 1057 -- -- -- 68 12 97 % -- -- 04/15/24 1056 -- -- -- 69 (!) 11 97 % -- -- 04/15/24 1055 -- -- -- 69 (!) 11 97 % -- -- 04/15/24 1054 -- -- -- 69 (!) 11 97 % -- -- 04/15/24 1053 -- -- -- 69 (!) 11 97 % -- -- 04/15/24 1052 -- -- -- 69 (!) 11 97 % -- -- 04/15/24 1051 -- -- -- 70 (!) 11 96 % -- -- 04/15/24 1050 -- -- -- 69 (!) 10 97 % -- -- 04/15/24 1048 -- -- -- 69 (!) 11 97 % -- -- 04/15/24 1047 -- -- -- 69 (!) 11 97 % -- -- 04/15/24 1046 -- -- -- 69 (!) 11 97 % -- -- 04/15/24 1045 -- -- -- 70 (!) 11 97 % -- -- 04/15/24 1044 -- -- -- 70 (!) 11 97 % -- -- 04/15/24 1043 -- -- -- 70 (!) 11 97 % -- -- 04/15/24 1042 -- -- -- 70 (!) 11 97 % -- -- 04/15/24 1041 -- -- -- 70 (!) 11 96 % -- -- 04/15/24 1040 -- -- -- 69 12 97 % -- -- 04/15/24 1039 -- -- -- 71 12 96 % -- -- 04/15/24 1038 -- -- -- 70 (!) 11 97 % -- -- 04/15/24 1037 -- -- -- 70 12 96 % -- -- 04/15/24 1036 -- -- -- 70 12 97 % -- -- 04/15/24 1035 -- -- -- 72 12 97 % -- -- 04/15/24 1034 -- -- -- 72 12 97 % -- -- 04/15/24 1033 -- -- -- 72 12 96 % -- -- 04/15/24 1032 -- -- -- 72 (!) 11 96 % -- -- 04/15/24 1031 129/77 -- -- 72 12 96 % -- -- 04/15/24 1030 -- -- -- 72 (!) 11 96 % -- -- 04/15/24 1029 -- -- -- 73 (!) 11 96 % -- -- 04/15/24 1028 -- -- -- 73 12 96 % -- -- 04/15/24 1027 -- -- -- 73 (!) 11 96 % -- -- 04/15/24 1026 -- -- -- 74 (!) 11 96 % -- -- 04/15/24 1025 -- -- -- 73 12 96 % -- -- 04/15/24 1024 -- -- -- 72 12 96 % -- -- 04/15/24 1023 -- -- -- 73 12 96 % -- -- 04/15/24 1022 -- -- -- 75 12 96 % -- -- 04/15/24 1021 -- -- -- 73 12 97 % -- -- 04/15/24 1020 -- -- -- 73 12 96 % -- -- 04/15/24 1019 -- -- -- 71 12 97 % -- -- 04/15/24 1018 -- -- -- 73 12 97 % -- -- 04/15/24 1017 -- -- -- 77 13 96 % -- -- 04/15/24 1016 -- -- -- 76 12 96 % -- -- 04/15/24 1015 -- -- -- 77 12 95 % -- -- 04/15/24 1014 -- -- -- 77 12 96 % -- -- 04/15/24 1013 -- -- -- 76 12 96 % -- -- 04/15/24 1012 -- -- -- 73 13 96 % -- -- 04/15/24 1011 -- -- -- 74 12 96 % -- -- 04/15/24 1010 -- -- -- 77 12 96 % -- -- 04/15/24 1009 -- -- -- 76 12 95 % -- -- 04/15/24 1008 -- -- -- 76 12 95 % -- -- 04/15/24 1007 -- -- -- 76 12 95 % -- -- 04/15/24 1006 -- -- -- 76 12 95 % -- -- 04/15/24 1005 -- -- -- 74 13 95 % -- -- 04/15/24 1004 -- -- -- 77 12 95 % -- -- 04/15/243 -- -- -- 78 12 95 % -- -- 04/15/24 1002 125/75 -- -- 77 13 95 % -- -- 04/15/24 1001 -- -- -- 79 13 95 % -- -- 04/15/24 1000 -- -- -- 77 12 95 % -- -- 04/15/2459 -- -- -- 78 13 95 % -- -- 04/15/2458 -- -- -- 80 14 95 % -- -- 04/15/2457 -- -- -- 79 12 95 % -- -- 04/15/2456 -- -- -- 81 14 95 % -- -- 04/15/2455 -- -- -- 80 12 95 % -- -- 04/15/2454 -- -- -- 78 12 96 % -- -- 04/15/2453 -- -- -- 81 15 96 % -- -- 04/15/2452 -- -- -- 84 (!) 11 97 % -- -- 04/15/2451 -- -- -- 85 15 96 % -- -- 04/15/2450 -- -- -- 86 13 96 % -- -- 04/15/2449 -- -- -- 92 19 97 % -- -- 04/15/2448 -- -- -- 86 14 96 % -- -- 04/15/2447 -- -- -- 77 12 96 % -- -- 04/15/2446 -- -- -- 84 13 96 % -- -- 04/15/2445 -- -- -- 82 14 96 % -- -- 04/15/2444 -- -- -- 78 12 95 % -- -- 04/15/2443 -- -- -- 83 12 95 % -- -- 04/15/2442 -- -- -- 85 13 95 % -- -- 04/15/2441 -- -- -- 82 13 95 % -- -- 04/15/2440 -- -- -- 83 13 95 % -- -- 04/15/2439 -- -- -- 81 14 95 % -- -- 04/15/2437 -- -- -- 86 16 97 % -- -- 04/15/2436 -- -- -- 86 13 96 % -- -- 04/15/2435 -- -- -- 84 12 95 % -- -- 04/15/2434 -- -- -- 82 13 95 % -- -- 04/15/2433 -- -- -- 87 15 95 % -- -- 04/15/2432 -- -- -- 85 (!) 11 95 % -- -- 04/15/2431 117/76 -- -- 87 15 94 % -- -- 04/15/24929 -- -- -- 82 15 95 % -- -- 04/15/24928 -- -- -- 86 13 96 % -- -- 04/15/24927 -- -- -- 85 14 96 % -- -- 04/15/24926 -- -- -- 85 16 96 % -- -- 04/15/24925 -- -- -- 86 16 96 % -- -- 04/15/24924 -- -- -- 89 17 94 % -- -- 04/15/24923 -- -- -- 87 17 96 % -- -- 04/15/24922 -- -- -- 88 20 98 % -- -- 04/15/24921 -- -- -- 87 16 96 % -- -- 04/15/24920 -- -- -- 88 15 96 % -- -- 04/15/24919 -- -- -- 87 13 95 % -- -- 04/15/2419 -- -- -- 85 12 95 % -- -- 04/15/2418 -- -- -- 85 13 95 % -- -- 04/15/2417 -- -- -- 87 13 95 % -- -- 04/15/2416 -- -- -- 85 15 96 % -- -- 04/15/2415 -- -- -- 87 16 96 % -- -- 04/15/2414 -- -- -- 83 12 95 % -- -- 04/15/24912 -- -- -- 82 13 96 % -- -- 04/15/24911 -- -- -- 84 14 96 % -- -- 04/15/24910 -- -- -- 85 13 96 % -- -- 04/15/24909 -- -- -- 86 18 95 % -- -- 04/15/24908 -- -- -- 86 14 95 % -- -- 04/15/24907 -- -- -- 85 16 95 % -- -- 04/15/24906 -- -- -- 85 16 94 % -- -- 04/15/24905 -- -- -- 84 18 96 % -- -- 04/15/24904 -- -- -- 87 17 95 % -- -- 04/15/24903 -- -- -- 85 14 95 % -- -- 04/15/24902 -- -- -- 84 15 95 % -- -- 04/15/24901 -- -- -- 85 17 96 % -- -- 04/15/24900 105/69 -- -- 86 15 95 % -- -- 04/15/24899 -- -- -- 82 13 96 % -- -- 04/15/24858 -- -- -- 89 14 97 % -- -- 04/15/24857 -- -- -- 84 19 94 % -- -- 04/15/2457 -- -- -- 90 17 94 % -- -- 04/15/2456 -- -- -- 87 17 95 % -- -- 04/15/2455 -- -- -- 90 15 95 % -- -- 04/15/2454 -- -- -- 89 12 94 % -- -- 04/15/2453 -- -- -- 89 16 94 % -- -- 04/15/2452 -- -- -- 90 18 94 % -- -- 04/15/2451 -- -- -- 91 (!) 11 94 % -- -- 04/15/24 0850 -- -- -- 92 12 94 % -- -- 04/15/2449 -- -- -- 91 15 94 % -- -- 04/15/2448 -- -- -- 89 14 93 % -- -- 04/15/2447 -- -- -- 89 15 94 % -- -- 04/15/2446 -- -- -- 87 14 94 % -- -- 04/15/2445 -- -- -- 90 12 95 % -- -- 04/15/2444 -- -- -- 88 15 95 % -- -- 04/15/2443 -- -- -- 91 16 94 % -- -- 04/15/2442 -- -- -- 90 16 94 % -- -- 04/15/2441 -- -- -- 90 15 95 % -- -- 04/15/2440 -- -- -- 91 18 97 % -- -- 04/15/2439 -- -- -- 91 15 95 % -- -- 04/15/2438 -- -- -- 91 16 95 % -- -- 04/15/2437 -- -- -- 92 19 95 % -- -- 04/15/2436 -- -- -- 95 14 97 % -- -- 04/15/2435 -- -- -- 92 15 96 % -- -- 04/15/2434 -- -- -- 94 20 97 % -- -- 04/15/2433 -- -- -- 98 15 96 % -- -- 04/15/2432 -- -- -- 101 16 97 % -- -- 04/15/2431 -- -- -- 95 16 95 % -- -- 04/15/2430 -- -- -- 84 (!) 11 94 % -- -- 04/15/2429 -- -- -- 85 12 94 % -- -- 04/15/2428 -- -- -- 85 12 95 % -- -- 04/15/24826 -- -- -- 85 12 95 % -- -- 04/15/24825 -- -- -- 85 14 94 % -- -- 04/15/24823 -- -- -- 84 (!) 11 95 % -- -- 04/15/24822 -- -- -- 83 12 95 % -- -- 04/15/24821 -- -- -- 84 12 95 % -- -- 04/15/24820 -- -- -- 86 13 94 % -- -- 04/15/24819 -- -- -- 86 12 94 % -- -- 04/15/24818 -- -- -- 87 12 95 % -- -- 04/15/24817 -- -- -- 86 12 95 % -- -- 04/15/24816 -- -- -- 86 12 95 % -- -- 04/15/2416 108/ -- -- 86 12 95 % -- -- 04/15/2415 -- -- -- 87 12 95 % -- -- 04/15/2414 -- -- -- 87 14 95 % -- -- 04/15/24812 -- -- -- 86 12 95 % -- -- 04/15/24811 -- -- -- 87 12 95 % -- -- 04/15/24810 -- -- -- 86 13 95 % -- -- 04/15/24809 -- -- -- 87 12 95 % -- -- 04/15/2409 -- -- -- 87 12 95 % -- -- 04/15/2408 -- -- -- 87 12 94 % -- -- 04/15/24806 -- -- -- 86 12 95 % -- -- 04/15/2406 -- -- -- 88 13 95 % -- -- 04/15/24 0805 -- -- -- 87 13 95 % -- -- 04/15/24803 -- -- -- 87 (!) 11 95 % -- -- 04/15/24802 -- -- -- 86 12 95 % -- -- 04/15/24801 -- -- -- 87 12 95 % -- -- 04/15/24800 107/65 36.8 C (98.3 F) Oral 88 13 95 % -- -- 04/15/24799 -- -- -- 87 12 95 % -- -- 04/15/249 -- -- -- 88 12 95 % -- -- 04/15/248 -- -- -- 86 12 95 % -- -- 04/15/247 -- -- -- 88 13 95 % -- -- 04/15/246 -- -- -- 88 13 95 % -- -- 04/15/245 -- -- -- 87 14 95 % -- -- 04/15/244 -- -- -- 87 12 95 % -- -- 04/15/243 -- -- -- 88 13 95 % -- -- 04/15/242 -- -- -- 86 13 95 % -- -- 04/15/24750 -- -- -- 87 13 95 % -- -- 04/15/240 -- -- -- 88 13 94 % -- -- 04/15/2449 -- -- -- 87 13 95 % -- -- 04/15/2448 -- -- -- 87 13 95 % -- -- 04/15/24746 107/69 -- -- 88 13 95 % -- -- 04/15/2446 -- -- -- 86 13 95 % -- -- 04/15/2445 -- -- -- 87 13 96 % -- -- 04/15/2444 -- -- -- 86 13 95 % -- -- 04/15/2443 -- -- -- 88 13 95 % -- -- 04/15/2442 -- -- -- 88 13 95 % -- -- 04/15/2441 -- -- -- 87 15 95 % -- -- 04/15/2440 -- -- -- 86 14 95 % -- -- 04/15/2439 -- -- -- 88 13 95 % -- -- 04/15/2438 -- -- -- 86 12 95 % -- -- 04/15/2437 -- -- -- 87 14 95 % -- -- 04/15/2436 -- -- -- 88 13 95 % -- -- 04/15/2435 -- -- -- 89 14 96 % -- -- 04/15/2434 -- -- -- 87 13 95 % -- -- 04/15/2433 -- -- -- 87 13 95 % -- -- 04/15/2432 108/68 -- -- 87 13 95 % -- -- 04/15/24730 -- -- -- 88 14 95 % -- -- 04/15/24729 -- -- -- 90 15 95 % -- -- 04/15/24728 -- -- -- 88 14 95 % -- -- 04/15/24727 -- -- -- 91 15 95 % -- -- 04/15/24726 -- -- -- 88 13 95 % -- -- 04/15/24725 -- -- -- 85 14 95 % -- -- 04/15/24724 -- -- -- 86 13 95 % -- -- 04/15/24723 -- -- -- 86 12 95 % -- -- 04/15/24722 -- -- -- 87 14 95 % -- -- 04/15/24721 -- -- -- 88 14 95 % -- -- 04/15/24720 -- -- -- 87 13 95 % -- -- 04/15/24719 -- -- -- 88 13 95 % -- -- 04/15/24718 -- -- -- 91 17 96 % -- -- 04/15/2418 -- -- -- 90 13 95 % -- -- 04/15/2417 105/68 -- -- 88 12 95 % -- -- 04/15/2416 -- -- -- 87 13 95 % -- -- 04/15/2414 -- -- -- 87 13 95 % -- -- 04/15/2413 -- -- -- 86 13 95 % -- -- 04/15/24711 -- -- -- 83 13 94 % -- -- 04/15/2411 104/68 -- -- 86 13 95 % -- -- 04/15/2410 -- -- -- 86 13 95 % -- -- 04/15/24708 -- -- -- 87 13 95 % -- -- 04/15/24707 -- -- -- 86 13 95 % -- -- 04/15/24706 -- -- -- 86 13 95 % -- -- 04/15/2406 -- -- -- 86 13 94 % -- -- 04/15/24704 -- -- -- 87 12 93 % -- -- 04/15/24703 -- -- -- 88 13 93 % -- -- 04/15/24702 -- -- -- 89 12 93 % -- -- 04/15/24701 -- -- -- 88 13 92 % -- -- 04/15/24700 (!) -- -- 90 13 93 % -- -- 04/15/24699 -- -- -- 89 14 92 % -- -- 04/15/24630 (!) 63 -- -- 92 13 91 % -- -- 04/15/24607 (!) 64 -- -- 95 18 93 % -- -- 04/15/24 0531 -- -- -- 99 19 93 % -- -- 04/15/24 0504 (!) 81 -- -- 104 19 93 % -- -- 04/15/24 0502 (!) 68 -- -- 103 17 93 % -- -- 04/15/24 0411 91/55 37.1 C (98.8 F) Oral 111 16 93 % -- -- 04/15/24 0407 (!) 73/53 -- -- 108 23 94 % -- -- 04/15/24 0404 (!) 75/52 -- -- 108 22 94 % -- -- 04/15/24 0403 (!) 76/51 -- -- 107 19 93 % -- -- 04/15/24 0301 (!) 88/ -- -- 105 22 96 % -- -- 04/15/24 0201 (!) -- -- 110 22 97 % -- -- 04/15/24 0101 113/66 -- -- 118 20 96 % -- -- 04/15/24 0006 97/56 -- -- 117 23 95 % -- -- 04/15/24 0000 (!) -- -- 118 25 94 % -- -- 04/14/24 2303 112/68 37.1 C (98.7 F) Oral (!) 121 (!) 30 96 % -- -- 04/14/24 2230 101/61 -- -- 107 26 94 % -- -- 04/14/24 2215 94/72 -- -- 107 24 97 % -- -- 04/14/24 2205 88/64 -- -- 101 (!) 10 96 % -- -- 04/14/24 2157 107/80 37 C (98.6 F) -- 80 14 98 % -- -- 04/14/24 1915 103/60 -- -- (!) 119 -- 98 % -- -- 04/14/24 1853 104/73 -- -- (!) 116 (!) 27 97 % -- -- 04/14/24 1630 82/55 -- -- (!) 120 -- -- -- -- 04/14/24 1555 -- 37.6 C (99.6 F) Oral (!) 121 20 99 % 1.905 m (6' 3") 93.1 kg (205 lb 4.8 oz) 04/14/24 1547 106/76 -- -- -- -- -- -- -- Physical Exam: Physical Exam Vitals and nursing note reviewed. Constitutional: General: He is in acute distress. Appearance: He is ill-appearing. HENT: Mouth/Throat: Pharynx: Oropharynx is clear. Eyes: Conjunctiva/sclera: Conjunctivae normal. Pupils: Pupils are equal, round, and reactive to light. Cardiovascular: Rate and Rhythm: Regular rhythm. Tachycardia present. Heart sounds: Murmur heard. Pulmonary: Effort: No respiratory distress. Breath sounds: No wheezing. Abdominal: General: There is no distension. Tenderness: There is no abdominal tenderness. Musculoskeletal: General: Tenderness present. Right lower leg: Edema present. Left lower leg: Edema present. Skin: Capillary Refill: Capillary refill takes less than 2 seconds. Coloration: Skin is pale. Findings: Bruising present. Neurological: Mental Status: He is alert and oriented to person, place, and time. Labs: Recent Labs 04/14/24 1603 04/14/24231704/15/24 0407 NA 137 -- 135 K 3.9 -- 3.6 CL 102 -- 105 CO2 19* -- 19* BUN 21* -- 25* CREATININE 1.24 -- 1.01 GLUCOSE 259* -- 286* CALCIUM 9.0 -- 7.9* PROT 7.8 -- 5.5* BILITOT 1.4* -- 1.1 ALKPHOS 167* -- 168* AST 25 -- 36 ALT 22 -- 34 PROCAL -- 27.06* -- Recent Labs 04/14/24 1603 04/14/24 1730 04/14/24231704/15/24 0407 WBC 1.5* -- 5.4 11.2* HGB 15.2 13.7 12.4* 11.9* HCT 47.3 -- 39.1* 36.2* PLT 183 -- 117* 107* LYMPHOPCT 38 -- 1* 1* MONOPCT 1* -- 0* 1* BASOPCT 1 -- 1 -- Micro: No results for input(s): "COVID19" in the last 72 hours. 04/15/2024 0103 04/15/2024 0107 Urine culture [[id number]] Urine, Clean Catch In process Component Value No component results 04/14/2024 1631 04/15/2024 0835 Blood culture Site #1 - Suspected Infection [[id number]] (Abnormal) Blood, Venous Preliminary result Component Value Blood Culture Gram-negative bacilli Panic P 04/14/2024 1631 04/15/2024 0835 Blood culture Site #2 - Suspected Infection [[id number]] (Abnormal) Blood, Venous Preliminary result Component Value Blood Culture Gram-negative bacilli Panic P 04/14/2024 1631 04/15/2024 0828 Blood Culture Identification - Anaerobic [[id number]] (Abnormal) Blood, Venous Final result Component Value Proteus species Detected Abnormal Lines: PIV Radiography/Echo/Other: CT abdomen pelvis wo IV contrast [[id number]] Collected: 04/14/241928 Order Status: Completed Updated: 04/14/241938 Narrative: [facility] 1960 [id number] Exam Date/Time: 04/14/2024 19:28 Procedure: CT ABDOMEN PELVIS WO IV CONTRAST Ordering Provider: EMS, [facility] Reason For Exam: Sepsis CT ABDOMEN AND PELVIS WITHOUT IV CONTRAST CLINICAL INDICATION: Sepsis. TECHNIQUE: Multidetector axial CT images through the abdomen and pelvis were obtained without IV contrast. No oral contrast was administered. Images were reconstructed in sagittal and coronal planes. Dose reduction was employed with automated exposure control. COMPARISON: None. FINDINGS: This examination is limited for the evaluation of solid organs and vascular structures due to the lack of intravenous contrast. Lower thorax: Tiny bilateral pleural effusions with associated atelectasis, left more extensive than right. Stomach: Unremarkable. Liver: Normal size and contours. Normal hepatic parenchyma. No focal lesion. Biliary tree: Unremarkable gallbladder by CT. No biliary dilatation Spleen: Normal Adrenals: Normal. Pancreas: Sequela of chronic pancreatitis including coarse calcifications throughout the pancreas. Some mild peripancreatic fat stranding and edema is present at the level of the head and uncinate process, suggesting possible low-grade pancreatitis. Right kidney and collecting system: Severe hydroureteronephrosis, with a string/2.3 cm length calcifications within the mid ureter. Left kidney and collecting system: Moderate hydroureteronephrosis with 3 separate 3 mm calcifications within the proximal most ureter. A few additional subcentimeter calcifications are present in the lower pole. Free air or fluid: None. Mesenteric/retroperitoneal: No adenopathy or inflammation. Aorta: Normal caliber. Bowel: Nonspecific rectal wall thickening. Increased fecal residue throughout the colon is suggestive of constipation. No small bowel inflammatory change or dilatation is noted. Bladder: The urinary bladder is decompressed by Santana catheter. Within the bladder lumen, there is a 3.4 x 3.1 cm calcification. Inguinal: . Abdominal wall/soft tissues: No ventral hernia is evident. Osseous structures: Severely decreased osseous mineralization. Thoracolumbar spine fusion hardware. Chronic fracture deformity of L2-3 with kyphoplasty changes. Impression: 1. Some mild peripancreatic fat stranding and edema is present at the level of the head and uncinate process, suggesting possible low-grade pancreatitis. Sequela of chronic pancreatitis including coarse calcifications throughout the pancreas. 2. Severe right hydroureteronephrosis, with a string/2.3 cm length calcifications within the mid ureter. 3. Moderate left hydroureteronephrosis with 3 separate 3 mm calcifications within the proximal most ureter. 4. Nonspecific rectal wall thickening. Increased fecal residue throughout the colon is suggestive of constipation. 5. Within the urinary bladder lumen, there is a 3.4 x 3.1 cm calcification. 6. Tiny bilateral pleural effusions with associated atelectasis, left more extensive than right. Report Dictated on Electronically Signed By: Joe Monroy MD Electronically Signed Date/Time: 04/14/2024 7:37 PM EDT XR chest 1 view [[id number]] Collected: 04/14/241650 Order Status: Completed Updated: 04/14/241652 Narrative: [facility] 1960 [id number] Exam Date/Time: 04/14/2024 16:39 Procedure: XR CHEST 1 VIEW Ordering Provider: [facility] Reason For Exam: sepsis INDICATION: Sepsis. VIEWS: Portable AP upright chest-one image COMPARISON: None. FINDINGS: Cardiac monitoring wires and leads are present. There is fusion hardware of the lumbar spine. The trachea is midline. The cardiomediastinal silhouette is within normal limits. The lung volumes are low. There is no confluent consolidation. Impression: No confluent consolidation. Lumbar spine fusion. Report Dictated on Electronically Signed By: Geneva Lunsford MD Electronically Signed Date/Time: 04/14/2024 4:52 PM EDT Antimicrobials,Start/End Dates: Ceftr 04/14 Erta 04/14- Fluco 04/14- Pip/tazo 04/14 Vanco 04/14- Impression: Septic shock. Proteus bacteremia. Urosepsis Bilateral hydronephrosis and obstruction due to bilateral ureteral calculus Bladder stone Neurogenic bladder with chronic santana catheter. Paraplegia. Type 2 diabetes. Plan: Pt sick due to septic shock due to Proteus bacteremia due to urosepsis. s/p cystoscopy, bilateral stent change and Santana cath insertion on 04/14/24. Afebrile but remained on pressor for hypotension. Rept blood cxs in AM. Urology op note says "Large soft tissue mass within the bladder read on CT scan was a large bladder stone but is likely a fungus ball. Some of this material was irrigated out of the bladder with the Nakita syringe but in light of his urosepsis no further attempts were made to remove this mass to avoid the risk of further seeding of the bloodstream". Await urine cx result. H/o MRSA infection. Check MRSA pcr. Continue ertapenem, fluconazole and vancomycin. High level complexity medical decision making. Will follow. Thank you. Total time 75 minutes on this day of encounter includes counseling, coordinating plan of care, record and documentation review before and after visit including documentation and time not explicitly included on EMR time stamp for accounting for open encounter. Associated Order(s): IP CONSULT TO BAG PRINTER This patient is not a new diabetic or new to insulin therapy and therefore does not meet our current criteria for the inpatient diabetes education service. The clinical bedside RN should provide any necessary diabetes education using the Diabetes Survival Skills Booklet available on the unit. Please consider a dietary consult if appropriate and if not already ordered. Contact Meds to Beds pharmacist for assistance if a new glucometer or any associated supplies are needed. Thank you. Karlos PAVON,BSN,[facility] Images from the original note were not included. Pharmacy Managed Vancomycin Dosing Service Consult Note Consult Date: 04/14/24 Patient Name: Anmol Reynolds Allergies: Patient has no known allergies. Age: 63 y.o. Sex: male Estimated body mass index is 25.66 kg/m as calculated from the following: Height as of this encounter: 1.905 m (6' 3"). Weight as of this encounter: 93.1 kg (205 lb 4.8 oz). Lab Results Component Value Date CREATININE 1.24 04/14/2024 CREATININE 0.57 (L) 10/25/2020 BUN 21 (H) 04/14/2024 BUN 13 10/25/2020 WBC 1.5 (LL) 04/14/2024 WBC 5.8 12/22/2022 Calculated CrCl: 80.6 mL/min Consulted By: Dr. Marti Infectious Diagnosis: UTI (AUC Goal 400-600 mg/L*hr) Antimicrobials: Patient recently received an antibiotic (last 12 hours) Date/Time Action Medication Dose Rate 04/14/24 1705 New Bag piperacillin-tazobactam (Zosyn) 3,375 mg in sodium chloride 0.9 % 50 mL IVPB Mini-Bag Plus 3,375 mg 100 mL/hr 04/14/24 1659 New Bag vancomycin (Vancocin) 1750 mg in NS 500 mL IVPB (premix) 1,750 mg 04/14/24 1622 New Bag cefTRIAXone (Rocephin) 1,000 mg in sodium chloride 0.9 % 50 mL IVPB Mini-Bag Plus 1,000 mg 100 mL/hr Assessment/Plan: Doses, serum creatinine, and vancomycin levels interfaced automatically to [employer] and data has been analyzed and interpreted. Start Vancomycin 1000 mg Q 12 hours based on patient age, weight, renal function, and infectious diagnosis (10.7 mg/kg). Predicted AUC = 509 mg/L*hr (goal 400-600 mg/L*hr) Will assess level on 04-150 and adjust as appropriate. Trend serum creatinine. Orders placed. Thank you for this consult. Please secure text or call with questions. DATE: 04/14/24 TIME: 10:55 PM Dariel Patino [facility] Clinical Pharmacist Available via Secure Chat Images from the original note were not included. Urology Inpatient Consultation Patient Name: Anmol Reynolds Date of : 1960 Admission Date: 04/14/2024 3:51 PM Today's Date: 04/14/2024 HISTORY OF PRESENT ILLNESS: The patient is a 63 y.o. male with sepsis anuria and bilateral ureteral obstruction. He presented to the er due to clogged santana. Data Afebrile [id number] Pulse-120 Creat-1.24 Co2-19 Lactic 5.1>>3.9 [address]-IMPRESSION: 1. Some mild peripancreatic fat stranding and edema is present at the level of the head and uncinate process, suggesting possible low-grade pancreatitis. Sequela of chronic pancreatitis including coarse calcifications throughout the pancreas. 2. Severe right hydroureteronephrosis, with a string/2.3 cm length calcifications within the mid ureter. 3. Moderate left hydroureteronephrosis with 3 separate 3 mm calcifications within the proximal most ureter. 4. Nonspecific rectal wall thickening. Increased fecal residue throughout the colon is suggestive of constipation. 5. Within the urinary bladder lumen, there is a 3.4 x 3.1 cm calcification. 6. Tiny bilateral pleural effusions with associated atelectasis, left more extensive than right. Report Dictated on Electronically Signed By: Joe Monroy MD Electronically Signed Date/Time: 04/14/2024 7:37 PM EDT He has hx of stones and had laser litho and cystolithalopaxy in 2022 He developed paraplegia after epidural abscess PAST MEDICAL HISTORY: Past Medical History: Diagnosis Date Abscess, perineum Chronic back pain Hip sprain Hyperlipidemia Hypertension Neuropathy Osteoarthritis Sciatica Type 2 diabetes mellitus without complication (CMS/HCC) (HCC) PAST SURGICAL HISTORY: Past Surgical History: Procedure Laterality Date ANKLE SURGERY Right He has a titanium plate to the right ankle KNEE SURGERY ACL LAMINECTOMY Left 10/24/2020 LEFT BILATERAL L2-3-4-5 DECOMPRESSION performed by Opal Vigil MD at [facility] OR ORTHOPEDIC SURGERY ALLERGIES: No Known Allergies CURRENT MEDICATIONS: Current Facility-Administered Medications: HYDROmorphone (Dilaudid) injection 1 mg, 1 mg, IntraVENous, q4h PRN, Orquidea Marti MD naloxone (Narcan) injection 0.4 mg, 0.4 mg, IntraVENous, q5 min PRN, Orquidea Marti MD Current Outpatient Medications: acetaminophen (Tylenol) 325 MG tablet, Take by mouth., Disp: , Rfl: alogliptin (Nesina) 25 MG tablet, , Disp: , Rfl: bisacodyl (Dulcolax) 5 MG EC tablet, Take 5 mg by mouth Daily as needed for constipation. Do not crush, chew, or split., Disp: , Rfl: bisacodyl (Dulcolax) 5 mg split suppository, Insert into the rectum., Disp: , Rfl: cyclobenzaprine (Flexeril) 10 MG tablet, Take 10 mg by mouth 3 times daily as needed for muscle spasms., Disp: , Rfl: docusate sodium (Colace) 100 MG tablet, Take 100 mg by mouth 2 times daily., Disp: , Rfl: ferrous sulfate 325 (65 Fe) MG tablet, Take 325 mg by mouth daily (with breakfast)., Disp: , Rfl: insulin glargine (Lantus) 100 UNIT/ML pen, Inject 45 Units under the skin., Disp: , Rfl: Insulin Lispro (Humalog) 100 UNIT/ML solution injection, Inject 0-28 Units under the skin., Disp: , Rfl: mirtazapine (Remeron) 7.5 MG tablet, , Disp: , Rfl: oxyCODONE (Roxicodone) 15 MG immediate release tablet, Take 15 mg by mouth 4 times daily as needed (chronic pain)., Disp: , Rfl: polyethylene glycol, PEG, 3350 (Miralax) 17 g packet, Take 17 g by mouth in the morning and 17 g in the evening., Disp: , Rfl: potassium chloride CR (Klor-Con M20) 20 MEQ ER tablet, , Disp: , Rfl: pregabalin (Lyrica) 200 MG capsule, Take 1 capsule (200 mg) by mouth 3 times daily., Disp: 90 capsule, Rfl: 1 tamsulosin (Flomax) 0.4 MG 24 hr capsule, , Disp: , Rfl: acetic acid 0.25 % irrigation, , Disp: , Rfl: aspirin 81 MG EC tablet, Take 81 mg by mouth daily., Disp: , Rfl: clotrimazole-betamethasone (Lotrisone) cream, , Disp: , Rfl: Hypromellose (Pure & Gentle Lubricant) 0.3 % solution, Administer 1 drop into affected eye(s) if needed., Disp: , Rfl: naloxone (Narcan) 4 mg/0.1 mL nasal spray, , Disp: , Rfl: FAMILY HISTORY: No family history on file. Social History: Social History Socioeconomic History Marital status: Spouse name: Not on file Number of children: Not on file Years of education: Not on file Highest education level: Not on file Occupational History Not on file Tobacco Use Smoking status: Every Day Smokeless tobacco: Never Substance and Sexual Activity Alcohol use: No Drug use: No Sexual activity: Not on file Other Topics Concern Not on file Social History Narrative Not on file Social Determinants of Health Financial Resource Strain: Low Risk (04/24/2023) Received from [facility] Overall Financial Resource Strain (CARDIA) Difficulty of Paying Living Expenses: Not hard at all Food Insecurity: No Food Insecurity (04/24/2023) Received from [facility] Hunger Vital Sign Worried About Running Out of Food in the Last Year: Never true Ran Out of Food in the Last Year: Never true Transportation Needs: No Transportation Needs (04/24/2023) Received from [facility] PRAPARE - Transportation Lack of Transportation (Medical): No Lack of Transportation (Non-Medical): No Physical Activity: Not on file Stress: Not on file Social Connections: Not on file Intimate Partner Violence: Not on file Housing Stability: High Risk (04/24/2023) Received from [facility] Housing Stability Vital Sign Unable to Pay for Housing in the Last Year: No Number of Places Lived in the Last Year: 4 In the last 12 months, was there a time when you did not have a steady place to sleep or slept in a senior living (including now)?: No Review of Systems Constitutional: Positive for diaphoresis and fatigue. Negative for fever. Respiratory: Negative for shortness of breath. Gastrointestinal: Negative for abdominal distention and abdominal pain. Genitourinary: Negative for flank pain and hematuria. Chronic santana due to ngb Santana plugged today Physical Exam: Vitals: 12/29/2023 2:56 PM 01/29/2024 3:58 PM 04/14/2024 3:47 PM 04/14/2024 3:55 PM 04/14/2024 4:30 PM 04/14/2024 6:53 PM 04/14/2024 7:15 PM Vitals Systolic 106 82 104 103 Diastolic 76 55 73 60 Heart Rate 121 120 116 119 Temp 37.6 C (99.6 F) Resp 20 27 SpO2 99 % 97 % 98 % Height (in) 6' 3" (1.905 m) 6' 3" (1.905 m) 6' 3" (1.905 m) Weight (lb) 183 180 205.3 BMI 22.87 kg/m2 22.5 kg/m2 25.66 kg/m2 BSA (m2) 2.1 m2 2.08 m2 2.22 m2 Visit Report Report Report Physical Exam Constitutional: Appearance: He is ill-appearing and toxic-appearing. HENT: Head: Normocephalic and atraumatic. Eyes: Extraocular Movements: Extraocular movements intact. Pupils: Pupils are equal, round, and reactive to light. Cardiovascular: Rate and Rhythm: Tachycardia present. Pulmonary: Effort: Pulmonary effort is normal. No respiratory distress. Abdominal: Palpations: Abdomen is soft. Tenderness: There is no right CVA tenderness or left CVA tenderness. Genitourinary: Penis: Normal. Testes: Normal. Comments: Santana in place yellow urine Musculoskeletal: Cervical back: Normal range of motion and neck supple. Neurological: Mental Status: He is alert and oriented to person, place, and time. Psychiatric: Mood and Affect: Mood normal. Judgment: Judgment normal. DATA: LABS: BMP: Lab Results Component Value Date GLUCOSE 259 (H) 04/14/2024 CALCIUM 9.0 04/14/2024 NA 137 04/14/2024 K 3.9 04/14/2024 CO2 19 (L) 04/14/2024 CL 102 04/14/2024 BUN 21 (H) 04/14/2024 CREATININE 1.24 04/14/2024 CBC: Lab Results Component Value Date WBC 1.5 (LL) 04/14/2024 HGB 13.7 04/14/2024 HCT 47.3 04/14/2024 MCV 95.6 04/14/2024 PLT 183 04/14/2024 Urinalysis: @LASTUA@ Urine Culture: No components found for: "LABURIN" RADIOLOGY: === 04/14/24 === CT ABDOMEN PELVIS WO IV CONTRAST - Impression - 1. Some mild peripancreatic fat stranding and edema is present at the level of the head and uncinate process, suggesting possible low-grade pancreatitis. Sequela of chronic pancreatitis including coarse calcifications throughout the pancreas. 2. Severe right hydroureteronephrosis, with a string/2.3 cm length calcifications within the mid ureter. 3. Moderate left hydroureteronephrosis with 3 separate 3 mm calcifications within the proximal most ureter. 4. Nonspecific rectal wall thickening. Increased fecal residue throughout the colon is suggestive of constipation. 5. Within the urinary bladder lumen, there is a 3.4 x 3.1 cm calcification. 6. Tiny bilateral pleural effusions with associated atelectasis, left more extensive than right. Report Dictated on Electronically Signed By: Joe Monroy MD Electronically Signed Date/Time: 04/14/2024 7:37 PM EDT IMPRESSION: 63 y.o. male with Urosepsis Bilateral hydro and obstruction due to bilateral ureteral calculus Bladder stone Ngb with chronic santana Mild urethral erosion Paraplegia after epidural abscess Type 2 diabetes PLAN: Emergent decompression with bilateral stent placement Delayed treatment of bladder and ureteral stones once infection is cleared Santana has been replaced Pt aware he is only getting stents tonight He is aware he may need perc if unable to place the stents He is aware of the risk of worse sepsis after manipulation of the stones All questions answered he wishes to proceed. Thank you for allowing me to participate in the care of your patient Joan Patel MD 04/14/24 8:41 PM Images from the original note were not included. Internal Medicine: MICU Initial Consult Name: Anmol D Gail : 1960(63 y.o.) Date: 04/14/24 Attending: Dr. Hooker Subjective: Chief Complaint: UTI HPI: This is a 63 year old paraplegic patient, history of recurrent UTI at [facility] who presented to the ED today due to bilateral leg pain and clogged santana catheter. This was replaced in the ED but no urine has been obtained from the new catheter. Patient met severe sepsis criteria and was given CTX, zosyn, vanco. Patient has no other specific complaints at present. BP was as low as 80s systolic but now up to MAP 70s. LA elevated. ICU consulted for possible admissions. Past Medical History: Diagnosis Date Abscess, perineum Chronic back pain Hip sprain Hyperlipidemia Hypertension Neuropathy Osteoarthritis Sciatica Type 2 diabetes mellitus without complication (CMS/HCC) ([facility]) Past Surgical History: Procedure Laterality Date ANKLE SURGERY Right He has a titanium plate to the right ankle KNEE SURGERY ACL LAMINECTOMY Left 10/24/2020 LEFT BILATERAL L2-3-4-5 DECOMPRESSION performed by Opal Vigil MD at [facility] OR ORTHOPEDIC SURGERY No family history on file. Social History Socioeconomic History Marital status: Spouse name: Not on file Number of children: Not on file Years of education: Not on file Highest education level: Not on file Occupational History Not on file Tobacco Use Smoking status: Every Day Smokeless tobacco: Never Substance and Sexual Activity Alcohol use: No Drug use: No Sexual activity: Not on file Other Topics Concern Not on file Social History Narrative Not on file Social Determinants of Health Financial Resource Strain: Low Risk (04/24/2023) Received from [facility] Overall Financial Resource Strain (CARDIA) Difficulty of Paying Living Expenses: Not hard at all Food Insecurity: No Food Insecurity (04/24/2023) Received from [facility] Hunger Vital Sign Worried About Running Out of Food in the Last Year: Never true Ran Out of Food in the Last Year: Never true Transportation Needs: No Transportation Needs (04/24/2023) Received from [facility] PRAPARE - Transportation Lack of Transportation (Medical): No Lack of Transportation (Non-Medical): No Physical Activity: Not on file Stress: Not on file Social Connections: Not on file Intimate Partner Violence: Not on file Housing Stability: High Risk (04/24/2023) [facility] Housing Stability Vital Sign Unable to Pay for Housing in the Last Year: No Number of Places Lived in the Last Year: 4 In the last 12 months, was there a time when you did not have a steady place to sleep or slept in a senior living (including now)?: No No Known Allergies Prior to Admission medications Medication Sig Start Date End Date Taking? Authorizing Provider acetaminophen (Tylenol) 325 MG tablet Take by mouth. Historical Provider, acetic acid 0.25 % irrigation 12/12/23 Historical Provider, alogliptin (Nesina) 25 MG tablet 12/09/23 Historical Provider, aspirin 81 MG EC tablet Take 81 mg by mouth daily. Historical Provider, bisacodyl (Dulcolax) 5 MG EC tablet Take 5 mg by mouth Daily as needed for constipation. Do not crush, chew, or split. Historical Provider, bisacodyl (Dulcolax) 5 mg split suppository Insert into the rectum. Historical Provider, clotrimazole-betamethasone (Lotrisone) cream 11/17/23 Historical Provider, cyclobenzaprine (Flexeril) 10 MG tablet 12/17/23 Historical Provider, docusate sodium (Colace) 100 MG tablet Take 100 mg by mouth 2 times daily. Historical Provider, ferrous sulfate 325 (65 Fe) MG tablet Take 325 mg by mouth daily (with breakfast). Historical Provider, Hypromellose (Pure & Gentle Lubricant) 0.3 % solution Administer 1 drop into affected eye(s) if needed. Historical Provider, insulin glargine (Lantus) 100 UNIT/ML pen Inject 45 Units under the skin. 04/28/23 Historical Provider, Insulin Lispro (Humalog) 100 UNIT/ML solution injection Inject 0-28 Units under the skin. 04/28/23 Historical Provider, mirtazapine (Remeron) 7.5 MG tablet 12/20/23 Historical Provider, naloxone (Narcan) 4 mg/0.1 mL nasal spray 04/29/23 Historical Provider, oxyCODONE (Roxicodone) 15 MG immediate release tablet 12/28/23 Historical Provider, polyethylene glycol, PEG, 3350 (Miralax) 17 g packet Take 17 g by mouth in the morning and 17 g in the evening. 04/28/23 Historical Provider, potassium chloride CR (Klor-Con M20) 20 MEQ ER tablet 04/12/23 Historical Provider, pregabalin (Lyrica) 200 MG capsule Take 1 capsule (200 mg) by mouth 3 times daily. 01/29/24 03/29/24 Carlos Gillette MD tamsulosin (Flomax) 0.4 MG 24 hr capsule 11/30/23 Historical Provider, Objective: Oxygen Delivery: VITALS: BP 82/55 Pulse (!) 120 Temp 37.6 C (99.6 F) (Oral) Resp 20 Ht 1.905 m (6' 3") Wt 93.1 kg (205 lb 4.8 oz) SpO2 99% BMI 25.66 kg/m CURRENT PULSE OXIMETRY: SpO2: 99 % Review of Systems- negative except in HPI. Constitutional: General Appearance []WDWN []Obese []Cachectic []Thin [x]Ill Eyes: Inspection of Pupils/Irises Pupils round and react: [x]Yes []No Sclera: []Icteric [x]Non-Icteric Inspection of Conjunctiva/Lids Conjunctiva: []Injected [x]Non-Injected Lids: [x]Intact []Lesion Present ENT/Mouth: External Inspection of ears/nose [x] Normal [] Scar/Lesion/Mass Inspection of teeth/lips/gums Dentition: [][place] Teeth []Dentures Lips/Gums: []Intact []Lesion Present Mucosa: [][place] [x]Moist []Dry Neck: External Appearance Overall Appearance: [x]Normal []Lesion/Mass/Crepitus Present Trachea midline: []Yes []No Thyroid [x]Normal []Enlarged []Tender []Mass []Absent Respiratory: Respiratory effort []Labored [x]Non-Labored [] Mechanically-Ventilated Auscultation [x]Clear []Crackles []Wheezes [][place] Cardiovascular: Auscultation Rate: [x]Regular []Irregular []Tachycardia []Bradycardia Rhythm: [x]Regular []Irregular Murmur: []Present []Absent Extremities Peripheral Edema: []Present [x]Absent Varicosities: []Present []Absent Gastrointestinal: Abdomen Palpation: [x]Soft []Firm []Tender [x]Non-Tender []Distended [x]Non-distended Mass: []Present [x]Absent Bowel Sounds: []Present [x]Absent Hernia: []Present []Absent Liver/Spleen: []Hepatosplenomegaly []Organomegaly Absent Musculoskeletal: Inspection of Digits and Nails Cyanosis: []Present [x]Absent Clubbing: []Present []Absent Ischemia: []Present []Absent Infection: []Present []Absent Extremities HOUSER Equally: Except ([]RUE []RLE []LUE []LLE) Strength/Tone: Intact and Normal ([]RUE []RLE []LUE []LLE) Skin: Inspection [x]Normal []Rash []Lesion []Ulcer Palpation [x]Warm []Cool []Dry []Clammy []Nodules []Induration []Skin-tightening Cap-Refill: [] <3 sec [] >3 seconds (delayed) Neurologic: GCS EYE: 4 - Opens spontaneously GCS MOTOR: 6 - Obeys commands for movement GCS VERBAL: 5 - Oriented to person, place, time Total GCS: 15 [] Sensation grossly intact Baseline paraplegic Psych: Mental Status Alert: [x]Yes [] No Oriented: []x0 []X1 []X2 [x]x3 Mood/Affect [x]Normal []Flat []Agitated []Depressed []Anxious []Calm []Sedated []NAD [facility] within last 24 hours- BMP: Recent Labs 04/14/24 1603 NA 137 K 3.9 CL 102 CO2 19* BUN 21* CREATININE 1.24 CALCIUM 9.0 LFTs: Recent Labs 04/14/24 1603 AST 25 ALT 22 PROT 7.8 ALBUMIN 4.0 BILITOT 1.4* ALKPHOS 167* LIPASE 12* Glucose: Recent Labs 04/14/24 1603 GLUCOSE 259* Procal: No results for input(s): "PROCAL" in the last 72 hours. CBC: Recent Labs 04/14/24 1603 04/14/24 1730 WBC 1.5* -- HGB 15.2 13.7 HCT 47.3 -- PLT 183 -- MCV 95.6 -- RDW 14.8 -- ABGs: Recent Labs 04/14/24 1730 [id number] Room Air Lactic Acid: Recent Labs 04/14/24 1603 LACTATE 5.1* INR: No results for input(s): "INR" in the last 72 hours. Cardiac Injury Profile: No results for input(s): "CKTOTAL", "CKMB", "TROPONINI" in the last 72 hours. Labs in Last 3 months: Lab Results Component Value Date INR 0.9 10/15/2020 Microbiology- Urine Cx: Lab Results Component Value Date URINECX >100,000 CFU/mL Proteus mirabilis (A) 05/23/2023 URINECX 10,000-50,000 CFU/mL Pseudomonas aeruginosa (A) 05/23/2023 Blood Cx: No results found for: BLOODCX Sputum Cx: No results found for: RESPCULT Gram Stain: No results found for: LABGRAM PNA PCR: No results found for: HUMANMETAPNE COVID19: No results found for: COVID19 Legionella Ag: No results found for: "LEGIONELLAPN" Strep Ag: No results for input(s): "STREPPNEUMO" in the last 72 hours. Imaging- CXR negative Assessment and Plan: Active Problems: There are no active Hospital Problems. Assessment: Septic shock, likely due to UTI/obstructed santana catheter in a patient with a chronic mary due to neurogenic bladder, POA and history of recurrent UTI Lactic acidosis/HAGMA Hyperglycemia, less likely DKA as LA likely contributing to AG. Neutropenia- likely due to sepsis MK Plan: Complete full sepsis bolus. Trend lactic. BP improved with fluids. If LA trends down and BP acceptable will admit to floors if not will admit to ICU. Acidosis likely due to LA, no role for bicarb supplementation in LA or DKA Agree with ct abd pelvis Broad spectrum IV abx. Patient at risk for resistant organisms given recent abx course. Consider meropenem. \\ documented in this encounter [facility] [place] 04-15-2024 Telephone encounter Note SURGERY SCHEDULING Surgeon: Dr. Joan Patel PROCEDURE: Cystoscopy, possible cystolitholapaxy, bilateral ureteroscopy, bilateral laser lithotripsy, bilateral ureteral stent change - Special request: Astrid laser DIAGNOSIS: Bladder calculus, bilateral ureteral stones FACILITY: [facility] or [facility] DETAILS: OUTPT ANESTHESIA: GENERAL TIME REQUESTED: 2hr DATE REQUESTED: Must be minimum of 2 weeks from today due to infection SURGERY ORDERS: Already placed by Joe Hammer NP on 04/15/2024 POST OP FOLLOW UP: cysto stent removal 2 wks [facility] 04-15-2024 History and physical note Images from the original note were not included. Attending History and Physical Admit Date: 04/14/2024 PCP: AMBROSIO MONROY DO CHIEF COMPLAINT: UTI Reason for Admission: Seps History Obtained From: patient HISTORY OF PRESENT ILLNESS: Anmol is a 63 y.o. male with , recurrent UTI at [facility] who presented to the ED today due to bilateral leg pain and clogged santana catheter. Increased pain in butt and back - started this morning. Intermittent, "fire pain", all day long. Has had this before - usually goes away after he takes his meds - feels likes a cramp, takes oxycodone. No Nausea, emesis, abdomen pain, headache or dizziness, chest pain or SOB. No recent sick contact No diarrhea or constipation. In the ED, VBG 7.2, AG 16, TB 1.4, glucose 259, LA 5.1, down to 3.9 with fluid. WBC 1.5, Impression: 1. Some mild peripancreatic fat stranding and edema is present at the level of the head and uncinate process, suggesting possible low-grade pancreatitis. Sequela of chronic pancreatitis including coarse calcifications throughout the pancreas. 2. Severe right hydroureteronephrosis, with a string/2.3 cm length calcifications within the mid ureter. 3. Moderate left hydroureteronephrosis with 3 separate 3 mm calcifications within the proximal most ureter. 4. Nonspecific rectal wall thickening. Increased fecal residue throughout the colon is suggestive of constipation. 5. Within the urinary bladder lumen, there is a 3.4 x 3.1 cm calcification. 6. Tiny bilateral pleural effusions with associated atelectasis, left more extensive than right. Urology called and patient to go to OR tonight. Will admit for further evaluation and management. Past Medical History: Past Medical History: Diagnosis Date Abscess, perineum Chronic back pain Hip sprain Hyperlipidemia Hypertension Neuropathy Osteoarthritis Sciatica Type 2 diabetes mellitus without complication (CMS/HCC) (HCC) Past Surgical History: Past Surgical History: Procedure Laterality Date ANKLE SURGERY Right He has a titanium plate to the right ankle KNEE SURGERY ACL LAMINECTOMY Left 10/24/2020 LEFT BILATERAL L2-3-4-5 DECOMPRESSION performed by Opal Vigil MD at [facility] OR ORTHOPEDIC SURGERY PLACE URETAL STENT PERC PRE-EXIST TRACT S&I (HISTORICAL) Bilateral 04/14/2024 Dr. Patel/Bashir Social History: Social History Socioeconomic History Marital status: Spouse name: Not on file Number of children: Not on file Years of education: Not on file Highest education level: Not on file Occupational History Not on file Tobacco Use Smoking status: Every Day Smokeless tobacco: Never Substance and Sexual Activity Alcohol use: No Drug use: No Sexual activity: Not on file Other Topics Concern Not on file Social History Narrative Not on file Social Determinants of Health Financial Resource Strain: Low Risk (04/24/2023) Received from [facility] Overall Financial Resource Strain (CARDIA) Difficulty of Paying Living Expenses: Not hard at all Food Insecurity: No Food Insecurity (04/24/2023) Received from [facility] Hunger Vital Sign Worried About Running Out of Food in the Last Year: Never true Ran Out of Food in the Last Year: Never true Transportation Needs: No Transportation Needs (04/24/2023) Received from [facility] PRAPARE - Transportation Lack of Transportation (Medical): No Lack of Transportation (Non-Medical): No Physical Activity: Not on file Stress: Not on file Social Connections: Not on file Intimate Partner Violence: Not on file Housing Stability: High Risk (04/24/2023) Received from [facility] Housing Stability Vital Sign Unable to Pay for Housing in the Last Year: No Number of Places Lived in the Last Year: 4 In the last 12 months, was there a time when you did not have a steady place to sleep or slept in a senior living (including now)?: No Family History: No family history on file. Medications Prior to Admission: No current facility-administered medications on file prior to encounter. Current Outpatient Medications on File Prior to Encounter Medication Sig Dispense Refill acetaminophen (Tylenol) 325 MG tablet Take by mouth. alogliptin (Nesina) 25 MG tablet bisacodyl (Dulcolax) 5 MG EC tablet Take 5 mg by mouth Daily as needed for constipation. Do not crush, chew, or split. bisacodyl (Dulcolax) 5 mg split suppository Insert into the rectum. cyclobenzaprine (Flexeril) 10 MG tablet Take 10 mg by mouth 3 times daily as needed for muscle spasms. docusate sodium (Colace) 100 MG tablet Take 100 mg by mouth 2 times daily. ferrous sulfate 325 (65 Fe) MG tablet Take 325 mg by mouth daily (with breakfast). insulin glargine (Lantus) 100 UNIT/ML pen Inject 45 Units under the skin. Insulin Lispro (Humalog) 100 UNIT/ML solution injection Inject 0-28 Units under the skin. mirtazapine (Remeron) 7.5 MG tablet oxyCODONE (Roxicodone) 15 MG immediate release tablet Take 15 mg by mouth 4 times daily as needed (chronic pain). polyethylene glycol, PEG, 3350 (Miralax) 17 g packet Take 17 g by mouth in the morning and 17 g in the evening. potassium chloride CR (Klor-Con M20) 20 MEQ ER tablet pregabalin (Lyrica) 200 MG capsule Take 1 capsule (200 mg) by mouth 3 times daily. 90 capsule 1 tamsulosin (Flomax) 0.4 MG 24 hr capsule acetic acid 0.25 % irrigation aspirin 81 MG EC tablet Take 81 mg by mouth daily. clotrimazole-betamethasone (Lotrisone) cream Hypromellose (Pure & Gentle Lubricant) 0.3 % solution Administer 1 drop into affected eye(s) if needed. naloxone (Narcan) 4 mg/0.1 mL nasal spray Allergies: No Known Allergies Vitals: BP 97/56 Pulse 117 Temp 37.1 C (98.7 F) (Oral) Resp 23 Ht 6' 3" (1.905 m) Wt 205 lb 4.8 oz (93.1 kg) SpO2 95% BMI 25.66 kg/m BMI Classification: Overweight (BMI 25.0-29.9) Pulse Ox: SpO2 Av.4 % Min: 94 % Max: 99 % Supplemental O2: O2 Flow Rate (L/min): 4 L/min PHYSICAL EXAM: Physical Exam Vitals and nursing note reviewed. Constitutional: General: He is in acute distress. Appearance: He is ill-appearing. HENT: Mouth/Throat: Pharynx: Oropharynx is clear. Eyes: Conjunctiva/sclera: Conjunctivae normal. Pupils: Pupils are equal, round, and reactive to light. Cardiovascular: Rate and Rhythm: Regular rhythm. Tachycardia present. Heart sounds: Murmur heard. Pulmonary: Effort: No respiratory distress. Breath sounds: No wheezing. Abdominal: General: There is no distension. Tenderness: There is no abdominal tenderness. Musculoskeletal: General: Tenderness present. Right lower leg: Edema present. Left lower leg: Edema present. Skin: Capillary Refill: Capillary refill takes less than 2 seconds. Coloration: Skin is pale. Findings: Bruising present. Neurological: Mental Status: He is alert and oriented to person, place, and time. DATA: CBC: Recent Labs 04/14/24 1603 04/14/24 1730 04/14/24 2318 WBC 1.5* -- 5.4 RBC 4.95 -- 4.03* HGB 15.2 13.7 12.4* HCT 47.3 -- 39.1* MCV 95.6 -- 97.0 RDW 14.8 -- 14.8 PLT 183 -- 117* BMP: Recent Labs 04/14/24 1603 NA 137 K 3.9 CL 102 CO2 19* BUN 21* CREATININE 1.24 GLUCOSE 259* CALCIUM 9.0 ANIONGAP 16* LIVER PROFILE: Recent Labs 04/14/24 1603 AST 25 ALT 22 BILITOT 1.4* ALKPHOS 167* PROT 7.8 PT/INR: Recent Labs 04/14/242004 PROTIME 27.1* INR 2.7* CARDIAC ENZYMES: Recent Labs 04/14/24 1603 TROPONINI <0.012 Procalcitonin: No results found for: "PROCAL" Urine Culture: Results for orders placed or performed during the hospital encounter of 05/23/23 Urine culture Specimen: Urine, Clean Catch Result Value Ref Range Urine Culture >100,000 CFU/mL Proteus mirabilis (A) Urine Culture 10,000-50,000 CFU/mL Pseudomonas aeruginosa (A) Susceptibility Proteus mirabilis - BROTH MICRODILUTION Ampicillin >=32 Resistant ug/ml Ampicillin / Sulbactam >=32 Resistant ug/ml Aztreonam Resistant Cefazolin >=64 Resistant ug/ml Cefepime Resistant Ceftriaxone 2 Intermediate ug/ml Ciprofloxacin >=4 Resistant ug/ml Gentamicin <=1 Susceptible ug/ml Meropenem 0.5 Susceptible ug/ml Nitrofurantoin Resistant Piperacillin / Tazobactam Resistant Trimethoprim / Sulfamethoxazole >=320 Resistant ug/ml COVID-19 PCR: No results for input(s): "COVID19" in the last 72 hours. I reviewed: [x] laboratory results [x] radiographic results At the time of today's encounter. Pt was advised of the results. Data: (CAT1) Reviewed 3 or more notes from different specialty or health system (each=1). (CAT1) Reviewed 3 or more labs/studies previously ordered by me not previously counted (each=1, panels count as 1). (CAT1) Ordered 3 or more new labs and/or studies (each=1, panels count as 1). (CAT2) CT of abdomen reviewed & showed trace bilateral pleural effusions, enlarged kidney bilateral, increased stool burden as interpreted by me. (CAT3) Mgmt of the patient was discussed with Dr. Joan Patel APRN, who stated, in summary: patient will need urgent surgery and might need transfer to ED (CAT3) Discussed with ED provider, Sin Nicholson APRN, regarding patient's eval & mgmt thus far, and agree with the plan for hospitalization. (LOW: 2x CAT1 or independent historian MOD: 3x CAT1 or 1x CAT3 EXTENSIVE: 3x CAT1 and 1x CAT3) Assessment Discussed management with the ED provider and agree with hospitalization. Acute, acute on chronic, unstable/uncontrolled chronic problems/diagnoses: Sepsis anuria secondary to recurrent URI Admit to telemetry Antibiotics: Ertapenem Vancomycin Follow-up cultures Status post bolus in emergency department Urology consulted, ID consulted for fungal mass Daily labs NPO Severe bilateral hydronephrosis with calcification in bladder lumen Plan for urology to stent . N.p.o. for immediate surgical intervention CAUTI precuations Lactic acidosis with an anion gap Serial lactate until cleared Constipation PEG daily and Colace History of sacral ulcer, Wound care consult Paralysis Elevated INR 2.7 Type II diabetic with hyperglycemia Continue Lyrica 200 mg 3 times daily Flexeril 10 mg 3 times daily for muscle spasms Hold Lantus Hypoglycemia protocol Linagliptin 5 mg in the morning substituted for Nesina Low-dose sliding scale Depression anxiety Remeron Hyperbilirubinemia Hypertension Hyperlipidemia Plan As a result of the above findings & factors, the following mgmt was pursued: - I discussed management with the ED clinician and agree with the need for hospitalization, monitor on telemetry, IVF, POCT, SS insulin, Urology, ID, sepsis protocol, PT/OT, increase activity, follow up labs, prn apresoline, follow up BP, review home meds and continue as appropriate, follow up labs, discharge planning, see admission orders. - am labs, replace lytes prn - PT/OT/CM/SW - delirium precautions: increase activity and limit nighttime disturbances - DVT prophylaxis: enoxaparin and encourage ambulation Complexity: Chronic illness with severe exacerbation, progression, or side effect of tx (HIGH). Risk: Admission to hospital-level care was considered or occurred (HIGH). Consult to surgery for emergency major surgery, or major surgery with identified patient or procedural risk factors, was considered or occurred (HIGH). Escalation of care to ICU was considered or occurred (HIGH). Advance Directive: Full Code Anticipated Discharge - Date - - Location - back to facility where lives - Pending the following - Clearance from specilties Total time spent (which include face to face and non face to face encounters) : 85 minutes. Toxic drug monitoring/narrow therapeutic index drug monitoring : # Drug name : insulin # Route administered : subq # Method of monitoring : sugars and hypoglycemia protocol Extended Emergency Contact Information Primary Emergency Contact: Ronald Reynolds Mobile Relation: Sibling Secondary Emergency Contact: GailLeyla Relation: Spouse [employer] Anmol Franco Gail : 1960 Primary Care Physician: AMBROSIO MONROY DO The patient and/or family/surrogate voluntarily agreed to participate in ACP services. Patient s cognitive capacity: intact Code Status: [X] [FULL CODE - Continue all advanced life support: CPR,intubation,invasive procedures] [_] [DNR-CCA - DO NOT do CPR, intubation] [_] [DNR-SUPPORT TEAM ASSOC - Comfort care only] [_] DNR form [was/was not] signed Summary of discussion: The patient health care POA/ surrogate is the following: Leyla Gail . [Condition that instigated the ACP on this DOS, relevant PMH, functional status, goals of care, and whom this was discussed with including names and relationship to the patient, and any relevant advance care documentation discussion] I answered all the patient/family questions that I could within the range and scope of the current medical situation. We discussed the medical conditions, risks, benefits, outcomes, and goals of care at this time for the patient's medical issues at hand in the face of the patient's chronic issues and current presentation. Total time spent: 5 minutes were spent discussing the patient's resuscitation status, advance care planning, and end of life care, with patient and/or family/surrogate. Orquidea Marti MD Division of Hospitalist Medicine [facility] documented in this encounter [facility] 04-14-2024 Emergency department Note Both sets of blood cultures obtained from each PIV when started. Samples labeled and at bedside in case BC ordered Leyla Mendoza RN 04/14/241642 Patient arrives via EMS from [facility] with c/o Santana catheter not draining, and Bi-Lateral Leg Pain. After triage assessment Santana catheter is draining. EMERGENCY DEPARTMENT ENCOUNTER Pt Name: Anmol Reynolds Birthdate 1960 Date of evaluation: 04/14/2024 ED Provider: Ernesto Dickens MD CHIEF COMPLAINT Chief Complaint Patient presents with Leg Pain HISTORY OF PRESENT ILLNESS (Location/Symptom, Timing/Onset, Context/Setting, Quality, Duration, Modifying Factors, Severity) Note limiting factors. I wore appropriate PPE for the entirety of this encounter. HPI Anmol Reynolds is a 63 y.o. who presents to the emergency department with a chief complaint of a blocked Santana catheter. He is paraplegic and is staying at a care facility. He says that he was recently diagnosed with a urinary tract infection. He is unsure if he is on antibiotics. He reports some pain in his legs. Nursing Notes were reviewed. Limitations to history: Outside historians: REVIEW OF SYSTEMS Review of Systems Pertinent positives and negatives as per HPI. PAST MEDICAL HISTORY Past Medical History: Diagnosis Date Abscess, perineum Chronic back pain Hip sprain Hyperlipidemia Hypertension Neuropathy Osteoarthritis Sciatica Type 2 diabetes mellitus without complication (CMS/HCC) (HCC) SURGICAL HISTORY Past Surgical History: Procedure Laterality Date ANKLE SURGERY Right He has a titanium plate to the right ankle KNEE SURGERY ACL LAMINECTOMY Left 10/24/2020 LEFT BILATERAL L2-3-4-5 DECOMPRESSION performed by Opal Vigil MD at [facility] OR ORTHOPEDIC SURGERY CURRENT MEDICATIONS Previous Medications ACETAMINOPHEN (TYLENOL) 325 MG TABLET Take by mouth. ACETIC ACID 0.25 % IRRIGATION ALOGLIPTIN (NESINA) 25 MG TABLET ASPIRIN 81 MG EC TABLET Take 81 mg by mouth daily. BISACODYL (DULCOLAX) 5 MG EC TABLET Take 5 mg by mouth Daily as needed for constipation. Do not crush, chew, or split. BISACODYL (DULCOLAX) 5 MG SPLIT SUPPOSITORY Insert into the rectum. CLOTRIMAZOLE-BETAMETHASONE (LOTRISONE) CREAM CYCLOBENZAPRINE (FLEXERIL) 10 MG TABLET DOCUSATE SODIUM (COLACE) 100 MG TABLET Take 100 mg by mouth 2 times daily. FERROUS SULFATE 325 (65 FE) MG TABLET Take 325 mg by mouth daily (with breakfast). HYPROMELLOSE (PURE & GENTLE LUBRICANT) 0.3 % SOLUTION Administer 1 drop into affected eye(s) if needed. INSULIN GLARGINE (LANTUS) 100 UNIT/ML PEN Inject 45 Units under the skin. INSULIN LISPRO (HUMALOG) 100 UNIT/ML SOLUTION INJECTION Inject 0-28 Units under the skin. MIRTAZAPINE (REMERON) 7.5 MG TABLET NALOXONE (NARCAN) 4 MG/0.1 ML NASAL SPRAY OXYCODONE (ROXICODONE) 15 MG IMMEDIATE RELEASE TABLET POLYETHYLENE GLYCOL, PEG, 3350 (MIRALAX) 17 G PACKET Take 17 g by mouth in the morning and 17 g in the evening. POTASSIUM CHLORIDE CR (KLOR-CON M20) 20 MEQ ER TABLET PREGABALIN (LYRICA) 200 MG CAPSULE Take 1 capsule (200 mg) by mouth 3 times daily. TAMSULOSIN (FLOMAX) 0.4 MG 24 HR CAPSULE ALLERGIES Patient has no known allergies. FAMILY HISTORY No family history on file. SOCIAL HISTORY Social History Socioeconomic History Marital status: Tobacco Use Smoking status: Every Day Smokeless tobacco: Never Substance and Sexual Activity Alcohol use: No Drug use: No Social Determinants of Health Financial Resource Strain: Low Risk (04/24/2023) Received from [facility] Overall Financial Resource Strain (CARDIA) Difficulty of Paying Living Expenses: Not hard at all Food Insecurity: No Food Insecurity (04/24/2023) Received from [facility] Hunger Vital Sign Worried About Running Out of Food in the Last Year: Never true Ran Out of Food in the Last Year: Never true Transportation Needs: No Transportation Needs (04/24/2023) Received from [facility] PRAPARE - Transportation Lack of Transportation (Medical): No Lack of Transportation (Non-Medical): No Housing Stability: High Risk (04/24/2023) Received from [facility] Housing Stability Vital Sign Unable to Pay for Housing in the Last Year: No Number of Places Lived in the Last Year: 4 In the last 12 months, was there a time when you did not have a steady place to sleep or slept in a senior living (including now)?: No SCREENINGS PHYSICAL EXAM ED Triage Vitals [04/14/24 1555] Temp Heart Rate Resp BP 37.6 C (99.6 F) (!) 121 20 -- SpO2 Temp Source Heart Rate Source Patient Position 99 % Oral Monitor Lying BP Location FiO2 (%) Left arm -- [id number], slightly toxic-appearing HEENT- atraumatic, normocephalic Neck- no meningismus, no obvious masses Respiratory- bilateral breath sounds, no respiratory distress Cardiovascular- tachycardic, well perfused Abdomen- soft, non-tender, no rebound or guarding MSK- normal muscle bulk, no gross deformities Skin- diaphoretic, no obvious rashes or lesions Neuro- alert, answering questions appropriately, CN2-12 grossly intact Psych- calm, cooperative DIAGNOSTIC RESULTS Interpretation per the Radiologist below, if available at the time of this note: CT abdomen pelvis wo IV contrast Final Result 1. Some mild peripancreatic fat stranding and edema is present at the level of the head and uncinate process, suggesting possible low-grade pancreatitis. Sequela of chronic pancreatitis including coarse calcifications throughout the pancreas. 2. Severe right hydroureteronephrosis, with a string/2.3 cm length calcifications within the mid ureter. 3. Moderate left hydroureteronephrosis with 3 separate 3 mm calcifications within the proximal most ureter. 4. Nonspecific rectal wall thickening. Increased fecal residue throughout the colon is suggestive of constipation. 5. Within the urinary bladder lumen, there is a 3.4 x 3.1 cm calcification. 6. Tiny bilateral pleural effusions with associated atelectasis, left more extensive than right. Report Dictated on Electronically Signed By: Joe Monroy MD Electronically Signed Date/Time: 04/14/2024 7:37 PM EDT XR chest 1 view Final Result No confluent consolidation. Lumbar spine fusion. Report Dictated on Electronically Signed By: Geneva Lunsford MD Electronically Signed Date/Time: 04/14/2024 4:52 PM EDT LABS: Labs Reviewed CBC WITH AUTO DIFFERENTIAL - Abnormal Result Value Auto WBC 1.5 (*) RBC 4.95 Hemoglobin 15.2 Hematocrit 47.3 MCV 95.6 MCH 30.7 MCHC 32.1 RDW 14.8 Platelets 183 MPV 10.8 COMPREHENSIVE METABOLIC PANEL - Abnormal SODIUM 137 POTASSIUM 3.9 CHLORIDE 102 CARBON DIOXIDE 19 (*) ANION GAP 16 (*) UREA NITROGEN 21 (*) CREATININE 1.24 GLUCOSE 259 (*) CALCIUM 9.0 AST (SGOT) 25 ALT 22 ALKALINE PHOSPHATASE 167 (*) ALBUMIN 4.0 BILIRUBIN, TOTAL 1.4 (*) TOTAL PROTEIN 7.8 eGFR 65.7 LIPASE - Abnormal LIPASE 12 (*) LACTIC ACID WITH REFLEX - Abnormal LACTIC ACID 5.1 (*) MANUAL DIFFERENTIAL (CELLAVISION) - Abnormal RBC Morphology Normal Neutrophils % 42 Bands % 17 (*) Lymphocytes % 38 Monocytes % 1 (*) Basophils % 1 Absolute Neutrophil Count 0.9 (*) Bands Absolute 0.3 (*) Lymphocytes Absolute 0.6 (*) Monocytes Absolute 0.0 Basophils Absolute 0.0 Neutrophils Manual 42 Lymphocytes Manual 38 Monocytes Manual 1 Eosinophils Manual Basophils Manual 1 Bands Manual 17 Metamyelocytes Manual Myelocytes Manual Promyelocytes Manual Blasts Manual Atypical Lymphocytes Manual Unclassified Cells, Manual BLOOD GAS, VENOUS - Abnormal pH, Venous 7.232 (*) pCO2, Venous 47.4 pO2, Venous 40.8 HCO3, Venous 19.5 (*) O2 Sat, Venous 70.7 Base Excess, Venous -8.0 (*) Hgb, blood gas 13.7 TCO2, Venous 20.9 (*) Source Of Oxygen Room Air Narrative: Assessment of oxygenation is best done with an arterial blood gas determination. Reference ranges for pO2, bicarbonate, and base excess are for mixed venous blood. Specimens drawn from a peripheral vein will often have higher values. LACTIC ACID WITH REFLEX - Abnormal LACTIC ACID 3.9 (*) BETA HYDROXYBUTYRATE - Normal BETA HYDROXYBUTYRATE 1.08 TROPONIN I - Normal TROPONIN I <0.012 Narrative: Patients with high levels of Biotin oral intake (ie >5 mg/day) may have falsely decreased Troponin levels. BLOOD CULTURE BLOOD CULTURE COMPLETE URINALYSIS WITH REFLEX TO CULTURE Narrative: The following orders were created for panel order Urinalysis Complete with reflex to Culture. Procedure Abnormality Status --------- ------ Complete Urinalysis[[id number]] Please view results for these tests on the individual orders. COMPLETE URINALYSIS LACTIC ACID WITH REFLEX LIPASE ABO RH BLOOD TYPE APTT PROTHROMBIN TIME All other labs were within normal range or not returned as of this dictation. EMERGENCY DEPARTMENT COURSE/[facility] Vitals: Vitals: 04/14/24 1555 04/14/24 1630 04/14/24 1853 04/14/24 1915 BP: 82/55 104/73 103/60 Pulse: (!) 121 (!) 120 (!) 116 (!) 119 Resp: 20 (!) 27 Temp: 37.6 C (99.6 F) TempSrc: Oral SpO2: 99% 97% 98% Weight: 93.1 kg (205 lb 4.8 oz) Height: 1.905 m (6' 3") Diagnoses as of 04/14/242001 Septic shock (HCC) Urinary obstruction Medications HYDROmorphone (Dilaudid) injection 0.5 mg (has no administration in time range) sodium chloride 0.9 % bolus 1,000 mL (0 mL IntraVENous Stopped 04/14/24 172) HYDROmorphone (Dilaudid) injection 0.5 mg (0.5 mg IntraVENous Given 04/14/24 1623) cefTRIAXone (Rocephin) 1,000 mg in sodium chloride 0.9 % 50 mL IVPB Mini-Bag Plus (0 mg IntraVENous Stopped 04/14/24 165) vancomycin (Vancocin) 1750 mg in NS 500 mL IVPB (premix) (1,750 mg IntraVENous New Bag 04/14/24 165) piperacillin-tazobactam (Zosyn) 3,375 mg in sodium chloride 0.9 % 50 mL IVPB Mini-Bag Plus (0 mg IntraVENous Stopped 04/14/24 1735) lactated ringers bolus 1,700 mL (1,700 mL IntraVENous New Bag 04/14/241658) sodium bicarbonate 8.4 % injection 50 mEq (50 mEq IntraVENous Given 04/14/24 175) EMERGENCY DEPARTMENT COURSE and DIFFERENTIAL DIAGNOSIS/Reval/MDM: Vitals: Vitals: 04/14/24 1555 04/14/24 1630 04/14/24 1853 04/14/24 1915 BP: 82/55 104/73 103/60 Pulse: (!) 121 (!) 120 (!) 116 (!) 119 Resp: 20 (!) 27 Temp: 37.6 C (99.6 F) TempSrc: Oral SpO2: 99% 97% 98% Weight: 93.1 kg (205 lb 4.8 oz) Height: 1.905 m (6' 3") Diagnoses as of 04/14/242001 Septic shock (HCC) Urinary obstruction ED Medications managed: Medications HYDROmorphone (Dilaudid) injection 0.5 mg (has no administration in time range) sodium chloride 0.9 % bolus 1,000 mL (0 mL IntraVENous Stopped 04/14/24 172) HYDROmorphone (Dilaudid) injection 0.5 mg (0.5 mg IntraVENous Given 04/14/24 162) cefTRIAXone (Rocephin) 1,000 mg in sodium chloride 0.9 % 50 mL IVPB Mini-Bag Plus (0 mg IntraVENous Stopped 04/14/24 165) vancomycin (Vancocin) 1750 mg in NS 500 mL IVPB (premix) (1,750 mg IntraVENous New Bag 04/14/24 1659) piperacillin-tazobactam (Zosyn) 3,375 mg in sodium chloride 0.9 % 50 mL IVPB Mini-Bag Plus (0 mg IntraVENous Stopped 04/14/24 1735) lactated ringers bolus 1,700 mL (1,700 mL IntraVENous New Bag 04/14/24 165) sodium bicarbonate 8.4 % injection 50 mEq (50 mEq IntraVENous Given 04/14/24 1753) SEP-1 CORE MEASURE DATA SIRS Criteria Sepsis Criteria Severe Sepsis Criteria Septic Shock Criteria Must meet 2: [] Temperature > 100.4 F (38 C) or < 96.8 F (36 C) [x] HR > 90 [] RR > 20 [x] WBC > 12 or < 4 or 10% bands Must be confirmed or suspected to move forward with diagnosis of sepsis. Must select at least one: [x] Bacterial Infection Confirmed or Suspected. [] Viral Infection Confirmed or Suspected. [] No infection present. Patient does not meet criteria for Sepsis. Must meet 1: [x] Lactate > 2 or [] Signs of Organ Dysfunction: - SBP < 90 or MAP < 65 - Altered mental status - Creatinine > 2 or increased from baseline - Urine Output < 0.5 ml/kg/hr - Bilirubin > 2 - INR > 1.5 - Platelets < 100,000 - Acute Respiratory Failure as evidenced by new need for NIPPV or mechanical ventilation [] No criteria met for Severe Sepsis. Must meet 1: [x] Lactate = or > 4 or [] SBP < 90 or MAP < 65 for at least two readings in the first hour after fluid bolus administration [] No criteria met for Septic Shock. No data found. Recent Labs 04/14/24 1603 04/14/24 1859 WBC 1.5* -- LACTATE 5.1* 3.9* CREATININE 1.24 -- BILITOT 1.4* -- PLT 183 -- Sepsis Identified at 1632 hours. Fluid Resuscitation Rational: at least 30mL/kg based on entered actual body weight at time of triage Infection Source: Unknown Reassessment exam: patient admitted Ernesto Dickens MD EKG interpreted by me: 04-14-2024. Time 1611. Rate 119 sinus tachycardia. Normal axis. ND interval 154, QRS 90, QTc 473. No STEMI. Discussions with other clinicians: ICU, about patient. Hospitalist, about admission. Urologist, about patient. Medical conditions impacting care: paraplegia Social determinants of health affecting care: resides at care facility Escalation of care, appropriate for: Admission versus ICU MDM: 63-year-old male with paraplegia presenting with blocked Santana catheter. He was slightly toxic appearing. He appeared to be septic. His lactate was elevated at 5.1. His MAP was briefly low. I consulted ICU. They felt that if his pressures and lactate improved, then he would be appropriate for the floor. The patient was acidotic. I gave him an amp of bicarb. He was not in DKA. His chest x-ray was negative for acute pathology. He was not producing urine, so we did not get a urine sample. I did not have an obvious source of sepsis. I had a lower suspicion for meningitis or encephalitis. I obtained a CT scan of his abdomen and pelvis to evaluate for an occult intra-abdominal process. The CT scan demonstrated severe hydronephrosis on one side and moderate hydronephrosis on the other. He had calcifications in the ureters. He also had a bladder calculus. I spoke with urology about this. It is my concern that he has sepsis from an obstructive uropathy. Urology felt he needed to go to the OR emergently. I agree with this. I think the risks of delaying treatment outweigh any potential upside. He will be taken emergently to the operating room. I also spoke with the hospitalist and had him admitted for further care. CRITICAL CARE TIME Total Critical Care time was 20 minutes, excluding separately reportable procedures. There was a high probability of clinically significant/life threatening deterioration in the patient's condition which required my urgent intervention. PROCEDURES: Unless otherwise noted below, none Procedures FINAL IMPRESSION 1. Septic shock (HCC) 2. Urinary obstruction DISPOSITION Admit 04/14/2024 07:38:21 PM PATIENT REFERRED TO: No follow-up provider specified. DISCHARGE MEDICATIONS: New Prescriptions No medications on file (Comment: Please note this report has been produced using speech recognition software and may contain errors related to that system including errors in grammar, punctuation, and spelling, as well as words and phrases that may be inappropriate. If there are any questions or concerns please feel free to contact the dictating provider for clarification.) Ernesto Dickens MD (electronically signed) Emergency Medicine Physician Ernesto Dickens MD 04/14/242002 Ernesto Dickens MD 04/14/242003 documented in this encounter [facility] 04-13-2024 Telephone encounter Note Called pt on his room number but unable to reach him or leave a message. I called nursing staff at the [place] where he lives and was able to leave a message with nursing regarding his MRI findings and that I would like to speak with him and recommendations to schedule visit with SCI rehab and spine surgery. Vaishali Pierre DO [facility] 04-06-2024 Telephone encounter Note Telephoned [place] pt at dinner and medical receptionist states she cannot pull pt away from dinner. [facility] 04-06-2024 Telephone encounter Note Called pt regarding his MRI, which showed: IMPRESSION: Acute-subacute sacral insufficiency fracture at S2. Postoperative and degenerative changes of the lumbar spine with linear granulation tissue at L2-3 and tethering of the cauda equina suggesting sequelae of chronic arachnoiditis. No evidence of osteomyelitis discitis or epidural abscess. He was currently out of the care home where he lives, but I was able to leave a message with the nursing staff that I would like to speak with him regarding these results. He needs to establish with PM&R spinal cord injury service for ongoing care in the SCI clinic as ordered last visit. I also ordered a spine surgery consultation for him due to the above findings.He does not have mychart set up to message. Vaishali Pierre DO [facility] 02-10-2024 Instructions Vaishali Pierre DO - 02/10/2024 1:53 PM EDT - xrays of the low back - can schedule the MRI of the lumbar spine - I recommend seeing one of my colleagues in the spinal cord injury clinic documented in this encounter [facility] 02-10-2024 History of Present illness Narrative Physical Medicine and Rehabilitation [facility] Consult 02/10/2024 Chief Complaint: Low back pain HPI: Anmol Reynolds is a pleasant 63 year old male who presents to the clinic today for opinion regarding spinal cord injury. 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 He subsequently had an additional lumbars surgery and eventually a T12-L5 fusion. He was diagnosed with lower thoracic/upper lumbar level paraplegia. He reports no movement or sensation in his lower extremities. He does have neuropathic pain in his legs, described as sharp and burning. He is currently in a nursing facility, [facility]. Bladder management is via Santana catheter. Bowel management with suppositories per his report. Severity: Pain Score: 8/10 (legs) He is treated by a pain management physician in his on Dilaudid and Lyrica for pain control. Current Outpatient Medications Medication Sig Dispense Refill zinc sulfate (ZINCATE) 220 (50 Zn) MG capsule Take 220 mg by mouth daily. oxycodone (ROXICODONE) 15 MG immediate release tablet pregabalin (LYRICA) 200 MG capsule Take 200 mg by mouth 3 times daily. insulin lispro (HumaLOG) 100 UNIT/ML injection Inject 0-28 Units under the skin. insulin glargine (LANTUS SOLOSTAR/BASAGLAR KWIKPEN) 100 UNIT/ML pen Inject 45 Units under the skin. cyclobenzaprine (FLEXERIL) 10 MG tablet No current facility-administered medications for this visit. No Known Allergies Social History Socioeconomic History Marital status: Unknown Review of Systems: GI: as per HPI : as per HPI Neurologic: As per HPI MSK: Per above HPI PHYSICAL EXAM: Vitals Recorded in This Encounter 02/10/2024 1307 Pain Score: 8 General: NAD, well developed, male Psychiatric: appropriate mood & affect. Cardiovascular: Normal pedal pulses; no LE edema. Respiratory: Normal rate; unlabored breathing. Skin: Intact; no erythema; no ecchymosis or rash. Lymphatic: No lymphadenopathy or lymphedema. NEURO: Alert and appropriate. Speech fluent, conversing appropriately. Motor: MMT: 0/0 b/L Le's Sensation: Light touch: absent below the T12 level Gait: in power WC Imaging: CT L spine 2021: IMPRESSION: 1. Interval new surgical fusion of T12/L1 and L4/L5, with interval removal of the hardware at L2/L3. 2. Posterior emphysematous changes are noted in the paraspinal soft tissues. This could be either secondary to postsurgical changes or infection. 3. The edema and inflammation involving the paraspinal soft tissues are slightly decreased since the prior study. Abscesses within the psoas muscles bilaterally have resolved. 4. However, there is worsening erosive changes noted at L2/L3, with increasing posterior angulation as described. Overall the findings are suspicious for persistent discitis/osteomyelitis. MRI L 02/2022: IMPRESSION: 1. Interval posterior spinal fusion extending from T12-L5. Susceptibility from surgical hardware limits evaluation of adjacent regions. 2. Large multiloculated fluid collection with mild peripheral enhancement extending from T12 vertebral level down to L4-L5 intervertebral disc level. This appears to be greatest at L2-L3 intervertebral disc. Although this may be postsurgical, possibility of abscess or pseudomeningocele would not be excluded by imaging. Consider short interval follow-up examination. 3. Persistent nonspecific edema involving posterior paraspinous structures and paravertebral region at L2-L3. Edema within bilateral psoas muscle appears decreased since 01/12/2022. 4. Persistent abnormal appearance of L2-L3 intervertebral disc, with unchanged vertebral body height loss involving L2 and L3 vertebral bodies. Correlate with serial CRP levels. 5. Persistent fluid signal within L1-L2, L4-L5, and L5-S1 intervertebral discs, without evidence of associated endplate destruction. This is favored to be degenerative. Early discitis would be less likely but not excluded. 6. Suspected severe spinal canal stenosis at L2-L3. Suspected mild to moderate spinal canal stenosis at L1-L2. Mild spinal canal stenosis at L3-L4. Additional multilevel degenerative changes with neural foraminal stenosis and spinal canal stenosis, as detailed above. Impression: Anmol Reynolds is a 63 year old male with: T12 level SCI. Plan: Orders & Meds Signed During This Encounter zinc sulfate (ZINCATE) 220 (50 Zn) MG capsule oxycodone (ROXICODONE) 15 MG immediate release tablet pregabalin (LYRICA) 200 MG capsule insulin lispro (HumaLOG) 100 UNIT/ML injection insulin glargine (LANTUS SOLOSTAR/BASAGLAR KWIKPEN) 100 UNIT/ML pen cyclobenzaprine (FLEXERIL) 10 MG tablet - discussed options. Pt requesting updated imaging. 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 Vaishali Pierre DO Physical Medicine and Rehabilitation Vitals not obtained per provider's instructions. documented in this encounter [facility] 01-29-2024 History of Present illness Narrative Images from the original note were not included. [facility] [address] [facility] [address] Dept: [phone] Dept Chief Complaint Patient presents with Pain Pt is here for pain in both legs. He states he has "jolts"of pain in his legs as well as a burning sensation. He was put on Lyrica which he states is not working. SUBJECTIVE HPI: Anmol Reynolds is a 63 y.o. year old here today for follow-up of chronic bilateral leg pain related to previous spinal cord injury / epidural abscess. LOCATION OF PAIN: entire bilateral legs RADIATES: throughout both legs NUMBNESS/TINGLING? Yes in entire bilateral legs / feet WEAKNESS? Yes in both legs (paralyzed from waist down) INTERFERING WITH SLEEP? Yes CURRENT PAIN MEDS: oxycodone 15 mg q8 hrs, Dilaudid 4 mg 6x daily PRN, Flexeril 10 mg TID PRN, Lyrica 150 mg BID, Tylenol 650 mg x 2 PRN ANY SIGNIFICANT SIDE EFFECTS FROM CURRENT PAIN MEDS? denies ARE THEY PROVIDING ADEQUATE ANALGESIA? minimal ARE THEY PROVIDING ADEQUATE FUNCTIONAL IMPROVEMENT? minimal PAIN MEDS PREVIOUSLY TRIED/FAILED: Gabapentin (ineffective) OTHER CURRENT / PREVIOUS TREATMENT Physical therapy -- yes TENS -- No Chiropractor -- No Acupuncture -- No Prior Pain Clinic -- Dr Cardoso (prior to becoming paralyzed) Chronic opiates -- yes, high dose Previous Pain Procedures -- No Patient Active Problem List Diagnosis Date Noted Hypertension 01/06/2017 Hyperglycemia 01/06/2017 Hip sprain 01/06/2017 Anxiety 01/06/2017 Lumbar stenosis with neurogenic claudication 10/24/2020 Spinal stenosis of lumbar region with neurogenic claudication 10/24/2020 Nicotine use disorder 10/15/2020 Unspecified osteoarthritis, unspecified site 10/15/2020 Pilonidal cyst without abscess 10/15/2020 Diabetes mellitus without complication ([facility]) ([facility]) 10/15/2020 Abnormal finding on EKG 10/15/2020 Other intervertebral disc displacement, lumbar region 10/15/2020 Lumbar radiculopathy 10/04/2020 Herniated nucleus pulposus, L5-S1, left 07/07/2017 No Known Allergies No family history on file. Past Medical History: Diagnosis Date Abscess, perineum Chronic back pain Hip sprain Hyperlipidemia Hypertension Neuropathy Osteoarthritis Sciatica Type 2 diabetes mellitus without complication ([facility]) ([facility]) Social History Socioeconomic History Marital status: Spouse name: Not on file Number of children: Not on file Years of education: Not on file Highest education level: Not on file Occupational History Not on file Tobacco Use Smoking status: Every Day Smokeless tobacco: Never Substance and Sexual Activity Alcohol use: No Drug use: No Sexual activity: Not on file Other Topics Concern Not on file Social History Narrative Not on file Social Determinants of Health Financial Resource Strain: Not on file Food Insecurity: Not on file Transportation Needs: Not on file Physical Activity: Not on file Stress: Not on file Social Connections: Not on file Intimate Partner Violence: Not on file Housing Stability: Not on file Past Surgical History: Procedure Laterality Date ANKLE SURGERY Right He has a titanium plate to the right ankle KNEE SURGERY ACL LAMINECTOMY Left 10/24/2020 LEFT BILATERAL L2-3-4-5 DECOMPRESSION performed by Opal Vigil MD at [facility] OR ORTHOPEDIC SURGERY Current Outpatient Medications Medication Sig Dispense Refill acetaminophen (Tylenol) 325 MG tablet Take by mouth. acetic acid 0.25 % irrigation alogliptin (Nesina) 25 MG tablet aspirin 81 MG EC tablet Take 81 mg by mouth daily. bisacodyl (Dulcolax) 5 MG EC tablet Take 5 mg by mouth Daily as needed for constipation. Do not crush, chew, or split. bisacodyl (Dulcolax) 5 mg split suppository Insert into the rectum. clotrimazole-betamethasone (Lotrisone) cream cyclobenzaprine (Flexeril) 10 MG tablet docusate sodium (Colace) 100 MG tablet Take 100 mg by mouth 2 times daily. ferrous sulfate 325 (65 Fe) MG tablet Take 325 mg by mouth daily (with breakfast). Hypromellose (Pure & Gentle Lubricant) 0.3 % solution Administer 1 drop into affected eye(s) if needed. insulin glargine (Lantus) 100 UNIT/ML pen Inject 45 Units under the skin. Insulin Lispro (Humalog) 100 UNIT/ML solution injection Inject 0-28 Units under the skin. mirtazapine (Remeron) 7.5 MG tablet naloxone (Narcan) 4 mg/0.1 mL nasal spray oxyCODONE (Roxicodone) 15 MG immediate release tablet polyethylene glycol, PEG, 3350 (Miralax) 17 g packet Take 17 g by mouth in the morning and 17 g in the evening. potassium chloride CR (Klor-Con M20) 20 MEQ ER tablet pregabalin (Lyrica) 200 MG capsule Take 1 capsule (200 mg) by mouth 3 times daily. 90 capsule 1 tamsulosin (Flomax) 0.4 MG 24 hr capsule No current facility-administered medications for this visit. Review of Systems OBJECTIVE Vitals: 01/29/24 1558 Weight: 180 lb (81.6 kg) Height: 6' 3" (1.905 m) Physical Exam Constitutional: General: He is not in acute distress. Appearance: He is well-developed. He is not diaphoretic. Eyes: Conjunctiva/sclera: Right eye: Right conjunctiva is not injected. Left eye: Left conjunctiva is not injected. Comments: Pupils not pinpoint Pulmonary: Effort: Pulmonary effort is normal. No respiratory distress. Abdominal: General: There is no distension. Skin: General: Skin is warm. Neurological: Mental Status: He is alert. Psychiatric: Mood and Affect: Mood and affect normal. Speech: Speech normal. IMAGING / OTHER STUDIES: 02/14/22 MRI Lumbar Spine IMPRESSION: 1. Interval posterior spinal fusion extending from T12-L5. Susceptibility from surgical hardware limits evaluation of adjacent regions. 2. Large multiloculated fluid collection with mild peripheral enhancement extending from T12 vertebral level down to L4-L5 intervertebral disc level. This appears to be greatest at L2-L3 intervertebral disc. Although this may be postsurgical, possibility of abscess or pseudomeningocele would not be excluded by imaging. Consider short interval follow-up examination. 3. Persistent nonspecific edema involving posterior paraspinous structures and paravertebral region at L2-L3. Edema within bilateral psoas muscle appears decreased since 01/12/2022. 4. Persistent abnormal appearance of L2-L3 intervertebral disc, with unchanged vertebral body height loss involving L2 and L3 vertebral bodies. Correlate with serial CRP levels. 5. Persistent fluid signal within L1-L2, L4-L5, and L5-S1 intervertebral discs, without evidence of associated endplate destruction. This is favored to be degenerative. Early discitis would be less likely but not excluded. 6. Suspected severe spinal canal stenosis at L2-L3. Suspected mild to moderate spinal canal stenosis at L1-L2. Mild spinal canal stenosis at L3-L4. Additional multilevel degenerative changes with neural foraminal stenosis and spinal canal stenosis, as detailed above. 7. Please see separate report for MRI cervical spine and MRI thoracic spine. Additional findings, as detailed above. LABS: ASSESSMENT 1. Injury of lumbar spinal cord, sequela (HCC) 2. Neuropathic pain 1) Chronic bilateral leg pain -- in setting of paraplegia related to spinal cord injury as sequale from thoracolumbar epidural abscess. Pain management further complicated by history of high dose opioid dependency, which patient himself admits is not helping his pain at all... not adequately controlled PLAN - Will increase Lyrica to 200 mg TID - May consider adding TCA if pain still not adequately controlled - In regard to his chronic opioid therapy, I have explained to him that I do not take over prescribing opioid therapy in my practice, and further continuation or discontinuation of that therapy will ultimately be left up to his current prescriber. However, it would be my recommendation to them to attempt slow weaning of his regimen over time, as it a high dose without any clear benefit. No follow-ups on file. documented in this encounter [facility] 12-29-2023 History of Present illness Narrative Images from the original note were not included. [facility] [address] [place] [address] Dept: [phone] Dept Chief Complaint Patient presents with New Patient Leg Pain Pt states having pain on his paralyzed legs, pain rate 8/10. SUBJECTIVE HPI: Anmol Reynolds is a 63 y.o. year old here today for evaluation and treatment of chronic bilateral leg pain LOCATION OF PAIN: entire bilateral legs RADIATES: throughout both legs QUALITY: "electric" CONSTANT/INTERMITTENT: constant, but occasional severe flare-ups DURATION: ~2 years ago after becoming paralyzed from waist down after developing epidural abscess requiring subsequent surgery NUMBNESS/TINGLING? Yes in entire bilateral legs / feet WEAKNESS? Yes in both legs (paralyzed from waist down) INTERFERING WITH SLEEP? Yes CURRENT PAIN MEDS: oxycodone 15 mg q8 hrs, Dilaudid 4 mg 6x daily PRN, Flexeril 10 mg TID PRN, Lyrica 100 mg BID, Tylenol 650 mg x 2 PRN ANY SIGNIFICANT SIDE EFFECTS FROM CURRENT PAIN MEDS? denies ARE THEY PROVIDING ADEQUATE ANALGESIA? minimal ARE THEY PROVIDING ADEQUATE FUNCTIONAL IMPROVEMENT? minimal PAIN MEDS PREVIOUSLY TRIED/FAILED: Gabapentin (ineffective) OTHER CURRENT / PREVIOUS TREATMENT Physical therapy -- yes TENS -- No Chiropractor -- No Acupuncture -- No Prior Pain Clinic -- Dr Cardoso (prior to becoming paralyzed) Chronic opiates -- yes, high dose Previous Pain Procedures -- No Patient Active Problem List Diagnosis Date Noted Hypertension 01/06/2017 Hyperglycemia 01/06/2017 Hip sprain 01/06/2017 Anxiety 01/06/2017 Positive blood cultures 05/17/2024 Calculus of ureter 05/06/2024 Bladder calculus 05/05/2024 Pressure injury of coccygeal region, stage 3 ([facility]) 04/20/2024 Septic shock ([facility]) 04/14/2024 Lumbar stenosis with neurogenic claudication 10/24/2020 Spinal stenosis of lumbar region with neurogenic claudication 10/24/2020 Nicotine use disorder 10/15/2020 Unspecified osteoarthritis, unspecified site 10/15/2020 Pilonidal cyst without abscess 10/15/2020 Diabetes mellitus without complication ([facility]) ([facility]) 10/15/2020 Abnormal finding on EKG 10/15/2020 Other intervertebral disc displacement, lumbar region 10/15/2020 Lumbar radiculopathy 10/04/2020 Herniated nucleus pulposus, L5-S1, left 07/07/2017 No Known Allergies No family history on file. Past Medical History: Diagnosis Date Abnormal posture Abscess, perineum Anemia BPH (benign prostatic hyperplasia) Chronic back pain Hematuria Hip sprain Hyperlipidemia Hypertension Major depressive disorder, single episode, unspecified MRSA (methicillin resistant staph aureus) culture positive spine 2021 Muscle wasting and atrophy, not elsewhere classified, left lower leg Muscle weakness (generalized) Neuropathy Obstructive and reflux uropathy, unspecified Osteoarthritis Other abnormalities of gait and mobility Other reduced mobility Paraplegia (HCC) Sciatica Spinal stenosis of lumbar region with neurogenic claudication Type 2 diabetes mellitus without complication (CMS/HCC) ([facility]) Urinary calculus, unspecified UTI (urinary tract infection) Social History Socioeconomic History Marital status: Spouse name: Not on file Number of children: Not on file Years of education: Not on file Highest education level: Not on file Occupational History Not on file Tobacco Use Smoking status: Every Day Current packs/day: 0.25 Average packs/day: 0.5 packs/day for 43.7 years (21.2 ttl pk-yrs) Types: Cigarettes Start date: 1977 Smokeless tobacco: Never Vaping Use Vaping status: Every Day Substances: Nicotine, Flavoring Substance and Sexual Activity Alcohol use: No Drug use: No Sexual activity: Not on file Other Topics Concern Not on file Social History Narrative Not on file Social Determinants of Health Financial Resource Strain: Low Risk (04/24/2023) [facility], [facility] Overall Financial Resource Strain (CARDIA) Difficulty of Paying Living Expenses: Not hard at all Food Insecurity: No Food Insecurity (05/18/2024) Hunger Vital Sign Worried About Running Out of Food in the Last Year: Never true Ran Out of Food in the Last Year: Never true Transportation Needs: No Transportation Needs (05/18/2024) PRAPARE - Transportation Lack of Transportation (Medical): No Lack of Transportation (Non-Medical): No Physical Activity: Not on file Stress: Not on file Social Connections: Not on file Intimate Partner Violence: Not At Risk (05/18/2024) Humiliation, Afraid, Rape, and Kick questionnaire Fear of Current or Ex-Partner: No Emotionally Abused: No Physically Abused: No Sexually Abused: No Housing Stability: Low Risk (05/18/2024) Housing Stability Vital Sign Unable to Pay for Housing in the Last Year: No Number of Times Moved in the Last Year: 0 Homeless in the Last Year: No Past Surgical History: Procedure Laterality Date ANKLE SURGERY Right He has a titanium plate to the right ankle KNEE SURGERY Left ACL KNEE SURGERY Left removal of screw LAMINECTOMY Left 10/24/2020 LEFT BILATERAL L2-3-4-5 DECOMPRESSION performed by Opal Vigil MD at [facility] OR ORTHOPEDIC SURGERY Right removal of hardware ankle US PLACE URETAL STENT PERC PRE-EXIST TRACT S&I (HISTORICAL) Bilateral 04/14/2024 Dr. Patel/Bashir Current Outpatient Medications Medication Sig Dispense Refill acetic acid 0.25 % irrigation alogliptin (Nesina) 25 MG tablet daily. cyclobenzaprine (Flexeril) 10 MG tablet Take 10 mg by mouth 3 times daily as needed for muscle spasms. insulin glargine (Lantus) 100 UNIT/ML pen Inject 45 Units under the skin every morning. Insulin Lispro (Humalog) 100 UNIT/ML solution injection Inject 0-28 Units under the skin. 0-160=0 units; 161-200=14 units, 201-250=18 units, 251-300=20 units 301-350=22 units, 351-400=28 units, 401 or higher give 28 units and call physician. mirtazapine (Remeron) 7.5 MG tablet Take 7.5 mg by mouth Nightly. naloxone (Narcan) 4 mg/0.1 mL nasal spray polyethylene glycol, PEG, 3350 (Miralax) 17 g packet Take 17 g by mouth in the morning and 17 g in the evening. potassium chloride CR (Klor-Con M20) 20 MEQ ER tablet 40 mEq daily. tamsulosin (Flomax) 0.4 MG 24 hr capsule 0.4 mg daily. acetaminophen (Tylenol) 325 MG tablet Take 650 mg by mouth every 6 hours as needed. For elevated temp and/or pain. Do not exceed 3 grams in 24 hour period. aspirin 81 MG EC tablet Take 81 mg by mouth daily. bisacodyl (Dulcolax) 5 MG EC tablet Take 5 mg by mouth Daily as needed for constipation. Do not crush, chew, or split. bisacodyl (Dulcolax) 5 mg split suppository Insert into the rectum Daily as needed. calcium carbonate (Tums) 500 MG chewable tablet 1,000 mg every 8 hours as needed for indigestion or heartburn. docusate sodium (Colace) 100 MG tablet Take 100 mg by mouth 2 times daily. ferrous sulfate 325 (65 Fe) MG tablet Take 325 mg by mouth daily (with breakfast). Hypromellose (Pure & Gentle Lubricant) 0.3 % solution Administer 1 drop into affected eye(s) if needed. Magnesium Hydroxide (MILK OF MAGNESIA PO) Take 30 mL by mouth Daily as needed. Multiple Vitamin (multivitamin) capsule Take 1 capsule by mouth daily. oxyCODONE (Roxicodone) 15 MG immediate release tablet Take 1 tablet (15 mg) by mouth in the morning and 1 tablet (15 mg) at noon and 1 tablet (15 mg) in the evening and 1 tablet (15 mg) before bedtime. 10 tablet 0 pregabalin (Lyrica) 200 MG capsule Take 1 capsule (200 mg) by mouth 3 times daily for 7 days. 21 capsule 0 sodium chloride 0.9 % irrigation solution Irrigate with as directed. 10 ml every 12 hours before and after medication administration No current facility-administered medications for this visit. Review of Systems OBJECTIVE Vitals: 12/29/23 1456 Weight: 183 lb (83 kg) Height: 6' 3" (1.905 m) Physical Exam Constitutional: General: He is not in acute distress. Appearance: He is well-developed. He is not diaphoretic. Eyes: Conjunctiva/sclera: Right eye: Right conjunctiva is not injected. Left eye: Left conjunctiva is not injected. Comments: Pupils not pinpoint Pulmonary: Effort: Pulmonary effort is normal. No respiratory distress. Abdominal: General: There is no distension. Skin: General: Skin is warm. Findings: No bruising, erythema or lesion. Neurological: Mental Status: He is alert. Psychiatric: Mood and Affect: Mood and affect normal. Speech: Speech normal. IMAGING / OTHER STUDIES: 02/14/22 MRI Lumbar Spine IMPRESSION: 1. Interval posterior spinal fusion extending from T12-L5. Susceptibility from surgical hardware limits evaluation of adjacent regions. 2. Large multiloculated fluid collection with mild peripheral enhancement extending from T12 vertebral level down to L4-L5 intervertebral disc level. This appears to be greatest at L2-L3 intervertebral disc. Although this may be postsurgical, possibility of abscess or pseudomeningocele would not be excluded by imaging. Consider short interval follow-up examination. 3. Persistent nonspecific edema involving posterior paraspinous structures and paravertebral region at L2-L3. Edema within bilateral psoas muscle appears decreased since 01/12/2022. 4. Persistent abnormal appearance of L2-L3 intervertebral disc, with unchanged vertebral body height loss involving L2 and L3 vertebral bodies. Correlate with serial CRP levels. 5. Persistent fluid signal within L1-L2, L4-L5, and L5-S1 intervertebral discs, without evidence of associated endplate destruction. This is favored to be degenerative. Early discitis would be less likely but not excluded. 6. Suspected severe spinal canal stenosis at L2-L3. Suspected mild to moderate spinal canal stenosis at L1-L2. Mild spinal canal stenosis at L3-L4. Additional multilevel degenerative changes with neural foraminal stenosis and spinal canal stenosis, as detailed above. 7. Please see separate report for MRI cervical spine and MRI thoracic spine. Additional findings, as detailed above. LABS: ASSESSMENT 1. Spinal cord injury, lumbar, without spinal bone injury, sequela (HCC) 2. Neuropathic pain 1) Chronic bilateral leg pain -- in setting of paraplegia related to spinal cord injury as sequale from thoracolumbar epidural abscess. Pain management further complicated by history of high dose opioid dependency, which patient himself admits is not helping his pain at all... not adequately controlled PLAN - Will increase Lyrica to 150 mg BID, and plan to continue titrating this up as tolerated / needed - May consider adding TCA if pain still not adequately controlled - In regard to his chronic opioid therapy, I explained to him that I do not take over prescribing opioid therapy in my practice, and further continuation or discontinuation of that therapy will ultimately be left up to his current prescriber. However, it would be my recommendation to them to attempt slow weaning of his regimen over time, as it a high dose without any clear benefit. No follow-ups on file. documented in this encounter [facility] 09-08-2023 Telephone encounter Note Called and left message for [facility] to call to schedule patient a new patient appointment [facility] 09-08-2023 Miscellaneous Notes Called and left message for [facility] to call to schedule patient a new patient appointment Name of caller: Doug Contact phone number: [phone] Relationship to Patient: [facility] Provider: Practice: Pain Management Chief Complaint/Reason for Call: [facility] states she mailed the referral over to the office and would like to know if the office received it. Please advise Best time of day caller can be reached: Any Patient advised that office/PCP has 24-48 business hours to return their call: Yes documented in this encounter [facility] 09-04-2023 Telephone encounter Note Name of caller: Doug Contact phone number: [phone] Relationship to Patient: [facility] Provider: Practice: Pain Management Chief Complaint/Reason for Call: [facility] states she mailed the referral over to the office and would like to know if the office received it. Please advise Best time of day caller can be reached: Any Patient advised that office/PCP has 24-48 business hours to return their call: Yes [facility] 08-19-2023 Telephone encounter Note Returned call gave fax number gave address to mail referral [facility] 08-19-2023 Miscellaneous Notes Returned call gave fax number gave address to mail referral Name of caller: [facility] Contact phone number: [phone] Relationship to Patient: [facility] Provider: Dr. Gillette Practice: Pain Management Chief Complaint/Reason for Call: Pt claims that fax of referral will not go threw and was hoping someone could give her a call back to go over the referral please advise Best time of day caller can be reached: Any Patient advised that office/PCP has 24-48 business hours to return their call: No Name of caller: [facility] Contact phone number: [phone] Relationship to Patient: [facility] Provider: Dr. Gillette Practice: Pain Management Chief Complaint/Reason for Call: [facility] states she would like a call back to confirm receipt of the patient's referral for SPEECH LANGUAGE PATHOLOGIST appt scheduling (fax number confirmed). Please contact [facility] and advise. Best time of day caller can be reached: Any Patient advised that office/PCP has 24-48 business hours to return their call: No documented in this encounter [facility] 08-19-2023 Telephone encounter Note Name of caller: [facility] Contact phone number: [phone] Relationship to Patient: [facility] Provider: Dr. Gillette Practice: Pain Management Chief Complaint/Reason for Call: Pt claims that fax of referral will not go threw and was hoping someone could give her a call back to go over the referral please advise Best time of day caller can be reached: Any Patient advised that office/PCP has 24-48 business hours to return their call: No [facility] 08-19-2023 Telephone encounter Note Name of caller: Doug Contact phone number: [phone] Relationship to Patient: [facility] Provider: Dr. Gillette Practice: Pain Management Chief Complaint/Reason for Call: Doug states she would like a call back to confirm receipt of the patient's referral for SPEECH LANGUAGE PATHOLOGIST appt scheduling (fax number confirmed). Please contact [facility] and advise. Best time of day caller can be reached: Any Patient advised that office/PCP has 24-48 business hours to return their call: No [facility] 08-13-2023 Telephone encounter Note Called and gave fax number to send referral [facility] 08-13-2023 Miscellaneous Notes Called and gave fax number to send referral Pt is asking for a call back to be scheduled Left message for patient to call the office Returned call will call thursday Name of Caller: Doug - [facility] Contact Reason for Appointment: Doug states that they faxed over a referral for patient a few days ago and is calling to schedule a SPEECH LANGUAGE PATHOLOGIST appointment. Please advise. Office Name: [facility] Pain Medication Refills need, if any: none Medication Name: n/a ` documented in this encounter [facility] 08-13-2023 Telephone encounter Note Pt is asking for a call back to be scheduled [facility] 08-12-2023 Telephone encounter Note Left message for patient to call the office [facility] 08-07-2023 Telephone encounter Note Returned call will call thursday [facility] 08-06-2023 Telephone encounter Note Name of Caller: Doug - [facility] Contact Reason for Appointment: Doug states that they faxed over a referral for patient a few days ago and is calling to schedule a SPEECH LANGUAGE PATHOLOGIST appointment. Please advise. Office Name: [facility] Pain Medication Refills need, if any: none Medication Name: n/a ` [facility] 05-23-2023 Emergency department Note [facility] arrived and report given. Patient loaded and sent back to SNF. Vladimir Dimas RN 05/23/23 1209 [facility] 05-23-2023 Emergency department Note [facility] arrived and report given. Patient loaded and sent back to SNF. Vladimir Dimas RN 05/23/23 1203 Inserted a santana and drained initially 100ml of blood and puss. Bladder scan showed 500+ ml of fluid in bladder. Obtained OK from ED Attending to manually flush and drain the catheter. After using 30 ml of NS to flush patient the urine began to flow into the santana bag. Urine sample sent. Vladimir Dimas RN 05/23/23 1013 Bed: 18 Expected date: Expected time: Means of arrival: Comments: Adelia Banuelos 05/23/23 0746 EMERGENCY DEPARTMENT ENCOUNTER Pt Name: Anmol Reynolds Birthdate 1960 Date of evaluation: 05/23/2023 ED Provider: Colt Klein DO CHIEF COMPLAINT Chief Complaint Patient presents with Urinary Retention HISTORY OF PRESENT ILLNESS (Location/Symptom, Timing/Onset, Context/Setting, Quality, Duration, Modifying Factors, Severity) Note limiting factors. I wore appropriate PPE for the entirety of this encounter. HPI Anmol Reynolds is a 62 y.o. male who presents to the emergency department with dislodged Santana catheter. The patient is a paraplegic has history of chronic indwelling Santana catheter. His Santana catheter was obstructed this morning, therefore his nursing facility attempted to change it and were unable to do so, and therefore he was sent to the emergency department for evaluation. The patient denies any urinary symptoms, fevers, or chills. Nursing Notes were reviewed. Limitations to history: Outside historians: REVIEW OF SYSTEMS Review of Systems Genitourinary: Dislodged Santana catheter PAST MEDICAL HISTORY Past Medical History: Diagnosis Date Abscess, perineum Chronic back pain Hip sprain Hyperlipidemia Hypertension Neuropathy Osteoarthritis Sciatica Type 2 diabetes mellitus without complication (CMS/[facility]) SURGICAL HISTORY Past Surgical History: Procedure Laterality Date ANKLE SURGERY Right He has a titanium plate to the right ankle KNEE SURGERY ACL LAMINECTOMY Left 10/24/2020 LEFT BILATERAL L2-3-4-5 DECOMPRESSION performed by Opal Vigil MD at [facility] OR ORTHOPEDIC SURGERY CURRENT MEDICATIONS Previous Medications No medications on file ALLERGIES Patient has no known allergies. FAMILY HISTORY No family history on file. SOCIAL HISTORY Social History Socioeconomic History Marital status: Tobacco Use Smoking status: Every Day Smokeless tobacco: Never Substance and Sexual Activity Alcohol use: No Drug use: No SCREENINGS PHYSICAL EXAM ED Triage Vitals Temp Pulse Resp BP -- -- -- -- SpO2 Temp src Heart Rate Source Patient Position -- -- -- -- BP Location FiO2 (%) -- -- Physical Exam Constitutional: General: He is not in acute distress. Appearance: Normal appearance. He is not ill-appearing, toxic-appearing or diaphoretic. Abdominal: Comments: Distended and discomfort in the suprapubic region Neurological: Mental Status: He is alert. DIAGNOSTIC RESULTS RADIOLOGY (Per Emergency Physician): Interpretation per the Radiologist below, if available at the time of this note: No orders to display LABS: Labs Reviewed COMPLETE URINALYSIS - Abnormal Result Value Color, Urine Yellow Clarity, Urine Extra Turbid (*) pH, Urine 8.0 Leukocytes, Urine 500 (*) Nitrite, Urine Positive (*) Protein, Urine 100 (*) Glucose, Urine Normal Bilirubin, Urine Negative Ketones, Urine Negative Urobilinogen, Urine Normal Blood, Urine 0.1 (*) RBC, Urine >100 (*) WBC, Urine >100 (*) Squamous Epithelial, Urine 0-2 Bacteria, Urine Moderate (*) Mucus, Urine Few Triple Phosphate Crystals, Urine Moderate (*) WBC Clumps, Urine Moderate (*) SPECIFIC GRAVITY OF URINE (NUMERIC) 1.014 URINE CULTURE COMPLETE URINALYSIS WITH REFLEX TO CULTURE Narrative: The following orders were created for panel order Urinalysis complete with reflex to Culture. Procedure Abnormality Status --------- ------ Complete Urinalysis[[id number]] Abnormal Final result Please view results for these tests on the individual orders. All other labs were within normal range or not returned as of this dictation. EMERGENCY DEPARTMENT COURSE and DIFFERENTIAL DIAGNOSIS/MDM: Vitals: Vitals: 05/23/23 0754 BP: 122/77 BP Location: Left arm Patient Position: Lying Pulse: 76 Resp: 18 Temp: 36.6 C (97.9 F) TempSrc: Oral SpO2: 97% Weight: 81.6 kg (180 lb) Height: 1.905 m (6' 3") Medications cephalexin (Keflex) capsule 500 mg (has no administration in time range) MDM The patient presented with chief complaint of dislodged chronic indwelling Santana catheter. See history and physical exam above. To aid in management, I performed an independent interpretation of all laboratory tests, EKG, imaging, and other diagnostics ordered. Santana catheter was passed with return of purulent urine. Urinalysis is grossly positive for UTI. The patient was given Keflex 500 mg p.o. for treatment of UTI, the patient has no sirs criteria. The patient will be discharged with prescription as below for catheter associated UTI and given follow-up to PCP. Patient's care was impacted by diabetes, paraplegia . I Colt Klein DO am the buggy runner of record. PROCEDURES: Unless otherwise noted below, none Procedures FINAL IMPRESSION 1. Urinary tract infection associated with indwelling urethral catheter, initial encounter ([facility]) DISPOSITION Discharge 05/23/2023 09:53:37 AM PATIENT REFERRED TO: Ambrosio Monroy DO [address] [facility] [address] [facility] [address] [facility] [address] [facility] [id number] DISCHARGE MEDICATIONS: New Prescriptions CEPHALEXIN (KEFLEX) 500 MG CAPSULE Take 1 capsule (500 mg) by mouth in the morning and 1 capsule (500 mg) at noon and 1 capsule (500 mg) in the evening and 1 capsule (500 mg) before bedtime. Do all this for 10 days. (Comment: Please note this report has been produced using speech recognition software and may contain errors related to that system including errors in grammar, punctuation, and spelling, as well as words and phrases that may be inappropriate. If there are any questions or concerns please feel free to contact the dictating provider for clarification.) Colt Klein DO (electronically signed) Emergency Medicine Provider Colt Klein DO 05/23/23 1010 Patient with chronic santana due to history of paraplegia that became clogged with blood clots. Patient had lithotripsy due to stone recently. SNF attempted several times to reinsert santana without success. documented in this encounter [facility] 05-23-2023 Emergency department Note Inserted a santana and drained initially 100ml of blood and puss. Bladder scan showed 500+ ml of fluid in bladder. Obtained OK from ED Attending to manually flush and drain the catheter. After using 30 ml of NS to flush patient the urine began to flow into the santana bag. Urine sample sent. Vladimir Dimas RN 05/23/23 1013 [facility] 05-23-2023 Emergency department Note Bed: 18 Expected date: Expected time: Means of arrival: Comments: Adelia Banuelos 05/23/23 0746 T [facility] 05-23-2023 Emergency department Triage note Patient with chronic santana due to history of paraplegia that became clogged with blood clots. Patient had lithotripsy due to stone recently. SNF attempted several times to reinsert santana without success. T [facility] 05-23-2023 Physician Emergency department Note EMERGENCY DEPARTMENT ENCOUNTER Pt Name: Anmol Reynolds Birthdate 1960 Date of evaluation: 05/23/2023 ED Provider: Colt Klein DO CHIEF COMPLAINT Chief Complaint Patient presents with Urinary Retention HISTORY OF PRESENT ILLNESS (Location/Symptom, Timing/Onset, Context/Setting, Quality, Duration, Modifying Factors, Severity) Note limiting factors. I wore appropriate PPE for the entirety of this encounter. HPI Anmol Reynolds is a 62 y.o. male who presents to the emergency department with dislodged Santana catheter. The patient is a paraplegic has history of chronic indwelling Santana catheter. His Santana catheter was obstructed this morning, therefore his nursing facility attempted to change it and were unable to do so, and therefore he was sent to the emergency department for evaluation. The patient denies any urinary symptoms, fevers, or chills. Nursing Notes were reviewed. Limitations to history: Outside historians: REVIEW OF SYSTEMS Review of Systems Genitourinary: Dislodged Santana catheter PAST MEDICAL HISTORY Past Medical History: Diagnosis Date Abscess, perineum Chronic back pain Hip sprain Hyperlipidemia Hypertension Neuropathy Osteoarthritis Sciatica Type 2 diabetes mellitus without complication ([facility]) SURGICAL HISTORY Past Surgical History: Procedure Laterality Date ANKLE SURGERY Right He has a titanium plate to the right ankle KNEE SURGERY ACL LAMINECTOMY Left 10/24/2020 LEFT BILATERAL L2-3-4-5 DECOMPRESSION performed by Opal Vigil MD at [facility] OR ORTHOPEDIC SURGERY CURRENT MEDICATIONS Previous Medications No medications on file ALLERGIES Patient has no known allergies. FAMILY HISTORY No family history on file. SOCIAL HISTORY Social History Socioeconomic History Marital status: Tobacco Use Smoking status: Every Day Smokeless tobacco: Never Substance and Sexual Activity Alcohol use: No Drug use: No SCREENINGS PHYSICAL EXAM ED Triage Vitals Temp Pulse Resp BP -- -- -- -- SpO2 Temp src Heart Rate Source Patient Position -- -- -- -- BP Location FiO2 (%) -- -- Physical Exam Constitutional: General: He is not in acute distress. Appearance: Normal appearance. He is not ill-appearing, toxic-appearing or diaphoretic. Abdominal: Comments: Distended and discomfort in the suprapubic region Neurological: Mental Status: He is alert. DIAGNOSTIC RESULTS RADIOLOGY (Per Emergency Physician): Interpretation per the Radiologist below, if available at the time of this note: No orders to display LABS: Labs Reviewed COMPLETE URINALYSIS - Abnormal Result Value Color, Urine Yellow Clarity, Urine Extra Turbid (*) pH, Urine 8.0 Leukocytes, Urine 500 (*) Nitrite, Urine Positive (*) Protein, Urine 100 (*) Glucose, Urine Normal Bilirubin, Urine Negative Ketones, Urine Negative Urobilinogen, Urine Normal Blood, Urine 0.1 (*) RBC, Urine >100 (*) WBC, Urine >100 (*) Squamous Epithelial, Urine 0-2 Bacteria, Urine Moderate (*) Mucus, Urine Few Triple Phosphate Crystals, Urine Moderate (*) WBC Clumps, Urine Moderate (*) SPECIFIC GRAVITY OF URINE (NUMERIC) 1.014 URINE CULTURE COMPLETE URINALYSIS WITH REFLEX TO CULTURE Narrative: The following orders were created for panel order Urinalysis complete with reflex to Culture. Procedure Abnormality Status --------- ------ Complete Urinalysis[[id number]] Abnormal Final result Please view results for these tests on the individual orders. All other labs were within normal range or not returned as of this dictation. EMERGENCY DEPARTMENT COURSE and DIFFERENTIAL DIAGNOSIS/MDM: Vitals: Vitals: 05/23/23 0754 BP: 122/77 BP Location: Left arm Patient Position: Lying Pulse: 76 Resp: 18 Temp: 36.6 C (97.9 F) TempSrc: Oral SpO2: 97% Weight: 81.6 kg (180 lb) Height: 1.905 m (6' 3") Medications cephalexin (Keflex) capsule 500 mg (has no administration in time range) MDM The patient presented with chief complaint of dislodged chronic indwelling Santana catheter. See history and physical exam above. To aid in management, I performed an independent interpretation of all laboratory tests, EKG, imaging, and other diagnostics ordered. Santana catheter was passed with return of purulent urine. Urinalysis is grossly positive for UTI. The patient was given Keflex 500 mg p.o. for treatment of UTI, the patient has no sirs criteria. The patient will be discharged with prescription as below for catheter associated UTI and given follow-up to PCP. Patient's care was impacted by diabetes, paraplegia . Liliana Klein DO am the buggy runner of record. PROCEDURES: Unless otherwise noted below, none Procedures FINAL IMPRESSION 1. Urinary tract infection associated with indwelling urethral catheter, initial encounter ([facility]) DISPOSITION Discharge 05/23/2023 09:53:37 AM PATIENT REFERRED TO: Ambrosio Monroy DO [address] [facility] [address] [facility] [address] [facility] [address] [facility] [address] DISCHARGE MEDICATIONS: New Prescriptions CEPHALEXIN (KEFLEX) 500 MG CAPSULE Take 1 capsule (500 mg) by mouth in the morning and 1 capsule (500 mg) at noon and 1 capsule (500 mg) in the evening and 1 capsule (500 mg) before bedtime. Do all this for 10 days. (Comment: Please note this report has been produced using speech recognition software and may contain errors related to that system including errors in grammar, punctuation, and spelling, as well as words and phrases that may be inappropriate. If there are any questions or concerns please feel free to contact the dictating provider for clarification.) Colt Klein DO (electronically signed) Emergency Medicine Provider Colt Klein DO 05/23/23 1010 [facility] 04-21-2022 Note HNO ID: [id number] Author: Cindi Cuellar PA-C Service: ? Author Type: Physician Switchman Type: Progress Notes Filed: 04/21/2022 12:25 PM Note Text: Actionable Finding: Reviewed patient's chart. The actionable finding of MRI lumbar , dated 02/14/22 was followed up by unknown and unsure if the patient was contacted regarding the MRI results. Unable to reach patient. Staff msg sent to Dr Kelly - patient spine surgeon. Cindi Cuellar PA-C [facility] 04-21-2022 Note Patient Outreach (SP NSMN) ANMOL REYNOLDS ([id number]) 1960 M Date Time Provider Department 04/21/22 CINDI CUELLAR SPNSMN During your visit today, we recorded the following information about you: Allergies As of Date: 04/21/2022 (No Known Allergies) Date Reviewed: 01/22/2022 Reviewed by: Kathrin Salmon RN - Fully Assessed Prescriptions as of 04/21/2022 - bisacodyl EC (DULCOLAX) 5 mg EC tablet Take 1 tablet by mouth twice daily. - gabapentin (NEURONTIN) 300 mg capsule Take 1 capsule by mouth every 12 hours for 30 days. - hydrOXYzine HCl (ATARAX) 25 mg tablet Take 1 tablet by mouth every 6 hours as needed (Anxiety). - insulin glargine (LANTUS SOLOSTAR, BASAGLAR KWIKPEN) 100 unit/mL (3 mL) Inject 30 Units subcutaneously every morning. - melatonin 3 mg tablet Take 3 tablets by mouth daily at bedtime. - mirtazapine (REMERON) 7.5 mg tablet Take 1 tablet by mouth daily at bedtime. - polyethylene glycol 3350 (MIRALAX, GLYCOLAX) 17 gram packet Take 1 Packet by mouth once daily as needed. Dissolve dose in 4 - 8 ounces of liquid and take as directed. - potassium chloride ER (K-DUR, KLOR-CON) 20 mEq tablet Take 1 tablet by mouth once daily. - senna-docusate (SENNA-S) 8.6-50 mg per tablet Take 1 tablet by mouth twice daily. - simethicone, chewable (MYLICON) 80 mg chewable tablet Take 1 tablet by mouth four times daily as needed. - aspirin 81 mg chewable tablet 1 tablet by ORAL/FEEDING TUBE route once daily. - enoxaparin (LOVENOX) 40 mg/0.4 mL Inject 0.4 mL subcutaneously q 24 HR. - insulin lispro (HUMALOG KWIKPEN) 100 unit/mL Inject 5 Units subcutaneously w MEALS. - oxyCODONE ER (OXYCONTIN) 40 mg 12 hr tablet Take 1 tablet by mouth every 8 hours for 10 days. - naloxone 4 mg/actuation nasal spray (NARCAN) Use 1 spray in one nostril as needed for overdose. May repeat every 2 to 3 min in alternating nostrils until medical assistance is available - famotidine (PEPCID) 20 mg tablet Take 20 mg by mouth twice daily. - artificial tear, Hypromellose, 0.3 % drop Use 1 Drop in both eyes as needed. - docusate sodium (COLACE) 100 mg capsule Take 1 capsule by mouth twice daily. - tamsulosin (FLOMAX) 0.4 mg Take 1 capsule by mouth once daily. - bisacodyl (DULCOLAX) 10 mg supp 1 Suppository by RECTAL route once daily as needed. - cyclobenzaprine (FLEXERIL) 10 mg tablet Take 1 tablet by mouth three times daily. - SITagliptin (JANUVIA) 100 mg tablet Take 1 tablet by mouth once daily. Problem List As Of Date 04/21/2022 Noted Resolved NO SHOW [841108] 08/31/2013 05/29/2020 Perineal abscess [L02.215] 06/13/2019 05/29/2020 Nicotine use disorder, F17.2 [F17.200] 06/14/2019 Pilonidal cyst without abscess [L05.91] 05/29/2020 Pilonidal cyst with abscess [L05.01] 12/31/2020 Perirectal abscess [K61.1] 01/16/2021 08/21/2021 Type 2 diabetes mellitus with hyperglycemia, wi*01/18/2021 Abnormal weight loss [R63.4] 08/21/2021 Elevated hemoglobin A1c [R73.09] 08/21/2021 Elevated CA 19-9 level [R97.8] 08/21/2021 Elevated carcinoembryonic antigen (CEA) [R97.0] 08/21/2021 Weight loss [R63.4] 09/03/2021 Severe protein-calorie malnutrition (HCC) [E43] 09/04/2021 Ureteral stone [N20.1] 11/25/2021 UTI (urinary tract infection) [N39.0] 11/26/2021 Chronic low back pain [M54.50, G89.29] 11/26/2021 Chronic pain of right ankle [M25.571, G89.29] 11/26/2021 Pyelonephritis [N12] 11/27/2021 MRSA bacteremia [R78.81, B95.62] 11/27/2021 Epidural abscess [G06.2] 01/04/2022 Vertebral osteomyelitis (HCC) [M46.20] 01/04/2022 Encounter Status:Closed by CINDI CUELLAR on 04/21/22 [facility] 04-21-2022 Note Patient Outreach (SP NSMN) ANMOL REYNOLDS ([id number]) 1960 Jamie Date Time Provider Department 04/21/22 CINDI CUELLAR SPNSMN During your visit today, we recorded the following information about you: Cindi Cuellar PA-C 04/21/2022 12:25 PM Signed Actionable Finding: Reviewed patient's chart. The actionable finding of MRI lumbar , dated 02/14/22 was followed up by unknown and unsure if the patient was contacted regarding the MRI results. Unable to reach patient. Staff msg sent to Dr Kelly - patient spine surgeon. Cindi Cuellar PA-C Allergies As of Date: 04/21/2022 (No Known Allergies) Date Reviewed: 01/22/2022 Reviewed by: Kathrin Salmon RN - Fully Assessed Prescriptions as of 04/21/2022 - bisacodyl EC (DULCOLAX) 5 mg EC tablet Take 1 tablet by mouth twice daily. - gabapentin (NEURONTIN) 300 mg capsule Take 1 capsule by mouth every 12 hours for 30 days. - hydrOXYzine HCl (ATARAX) 25 mg tablet Take 1 tablet by mouth every 6 hours as needed (Anxiety). - insulin glargine (LANTUS SOLOSTAR, BASAGLAR KWIKPEN) 100 unit/mL (3 mL) Inject 30 Units subcutaneously every morning. - melatonin 3 mg tablet Take 3 tablets by mouth daily at bedtime. - mirtazapine (REMERON) 7.5 mg tablet Take 1 tablet by mouth daily at bedtime. - polyethylene glycol 3350 (MIRALAX, GLYCOLAX) 17 gram packet Take 1 Packet by mouth once daily as needed. Dissolve dose in 4 - 8 ounces of liquid and take as directed. - potassium chloride ER (K-DUR, KLOR-CON) 20 mEq tablet Take 1 tablet by mouth once daily. - senna-docusate (SENNA-S) 8.6-50 mg per tablet Take 1 tablet by mouth twice daily. - simethicone, chewable (MYLICON) 80 mg chewable tablet Take 1 tablet by mouth four times daily as needed. - aspirin 81 mg chewable tablet 1 tablet by ORAL/FEEDING TUBE route once daily. - enoxaparin (LOVENOX) 40 mg/0.4 mL Inject 0.4 mL subcutaneously q 24 HR. - insulin lispro (HUMALOG KWIKPEN) 100 unit/mL Inject 5 Units subcutaneously w MEALS. - oxyCODONE ER (OXYCONTIN) 40 mg 12 hr tablet Take 1 tablet by mouth every 8 hours for 10 days. - naloxone 4 mg/actuation nasal spray (NARCAN) Use 1 spray in one nostril as needed for overdose. May repeat every 2 to 3 min in alternating nostrils until medical assistance is available - famotidine (PEPCID) 20 mg tablet Take 20 mg by mouth twice daily. - artificial tear, Hypromellose, 0.3 % drop Use 1 Drop in both eyes as needed. - docusate sodium (COLACE) 100 mg capsule Take 1 capsule by mouth twice daily. - tamsulosin (FLOMAX) 0.4 mg Take 1 capsule by mouth once daily. - bisacodyl (DULCOLAX) 10 mg supp 1 Suppository by RECTAL route once daily as needed. - cyclobenzaprine (FLEXERIL) 10 mg tablet Take 1 tablet by mouth three times daily. - SITagliptin (JANUVIA) 100 mg tablet Take 1 tablet by mouth once daily. Problem List As Of Date 04/21/2022 Noted Resolved NO SHOW [065898] 08/31/2013 05/29/2020 Perineal abscess [L02.215] 06/13/2019 05/29/2020 Nicotine use disorder, F17.2 [F17.200] 06/14/2019 Pilonidal cyst without abscess [L05.91] 05/29/2020 Pilonidal cyst with abscess [L05.01] 12/31/2020 Perirectal abscess [K61.1] 01/16/2021 08/21/2021 Type 2 diabetes mellitus with hyperglycemia, wi*01/18/2021 Abnormal weight loss [R63.4] 08/21/2021 Elevated hemoglobin A1c [R73.09] 08/21/2021 Elevated CA 19-9 level [R97.8] 08/21/2021 Elevated carcinoembryonic antigen (CEA) [R97.0] 08/21/2021 Weight loss [R63.4] 09/03/2021 Severe protein-calorie malnutrition (HCC) [E43] 09/04/2021 Ureteral stone [N20.1] 11/25/2021 UTI (urinary tract infection) [N39.0] 11/26/2021 Chronic low back pain [M54.50, G89.29] 11/26/2021 Chronic pain of right ankle [M25.571, G89.29] 11/26/2021 Pyelonephritis [N12] 11/27/2021 MRSA bacteremia [R78.81, B95.62] 11/27/2021 Epidural abscess [G06.2] 01/04/2022 Vertebral osteomyelitis (HCC) [M46.20] 01/04/2022 Encounter Status:Closed by CINDI CUELLAR on 04/21/22 [facility] 04-21-2022 History of Present illness Narrative Actionable Finding: Reviewed patient's chart. The actionable finding of MRI lumbar , dated 02/14/22 was followed up by unknown and unsure if the patient was contacted regarding the MRI results. Unable to reach patient. Staff msg sent to Dr Kelly - patient spine surgeon. Cindi Cuellar PA-C documented in this encounter [facility] 02-14-2022 History of Present illness Narrative Radiology Service Progress Note DATE OF SERVICE: February 14, 2022 TIME: 12:27 PM PATIENT IDENTITY VERIFICATION COMPLETED USING TWO (2) STANDARD IDENTIFIERS: Name and Date of confirmed by patient verbally and Name and Date of confirmed by identification band. FALL SCREENING: Has the patient had 2 falls in the last year or 1 fall with injury or currently using an Ambulatory Assistive Device (Walker, Cane, Wheelchair, Crutches, etc.)? No PATIENT GENDER DATA: Male PATIENT RELEVANT IMPLANT DATA REVIEWED: Yes ALLERGIES: Reviewed and unchanged CONTRAST ALLERGY: NO. EXAM: MRI - CONTRAST TYPE: GROUP II PERIPHERAL IV DATA: Ambulatory: [facility] line from [facility] RADIOLOGY DEPARTMENT: MR; Exam(s) Completed: Head: Routine Brain Spine: WHOLE spine SIGNATURE: RT Kasandra(R) PATIENT NAME: Anmol Reynolds DATE: February 14, 2022 TIME: 12:27 PM documented in this encounter [facility] 08-05-2021 Note HNO ID: [id number] Author: Penny Cameron MD Service: ? Author Type: Physician Type: Progress Notes Filed: 08/21/2021 2:37 PM Note Text: Assessment IMPRESSION/PLAN: Anmol Reynolds is a 61 year old male wm with healed perirectal abscess and with persistent pilonidal cyst without infection. Currently no intervention needed He is followed by Dr Monroy and Dr Molina of GI. I will review old records but I recommend he proceed with colonoscopy for further eval of weight loss and elevated tumor markers. If negative may consider MRI pancreas. We also discussed the necessity of controlling blood sugars and bringing down his Hgb A1c below 6 especially in regardfs to recurrent infections .. He states his diet is controlled so this may be an additional reason to pursue pancreas MRI HISTORY of PRESENT ILLNESS: Anmol Reynolds is a 61 year old male who presents in follow up of pilonidal cyst. He has also had h/o perirectal abscess most recently drained in 01/2021. Pt c/o pilonidal abscess that "burst" last week, since has no pain, no f/c. His main c/o is progressive unintentional weight loss and weakness, hardly can walk, unable to work. Was 205# 05/2020, now 140#. Has been followed by Dr Monroy and referred to Dr Molina of GI.he has had cts, bone scan, blood work and EGD without etiology for his weight loss. He has elevated cea and ca 19-9, no pancrease abnormality on ct, no mri done. Colonoscopy recommendd but pt hesitant to get. Also has poorly controlled HgbA1c - last was 13.5. states his appetite is good SURGICAL HISTORY: PAST SURGICAL HISTORY Procedure Laterality Date - I AND D OF PERIANAL ABSCESS, SIMPLE 05/04/2020 in ER - INC/DRAINAGE OF PERINEAL ABSCESS 06/13/[address] Franklin - JOINT REPLACEMENT HX ankle surgery right PAST MEDICAL HISTORY: PAST MEDICAL HISTORY Diagnosis Date - Diabetes (HCC) - Neuropathy - Pilonidal cyst without abscess 05/29/2020 - Sciatica ALLERGIES: ALLERGIES No Known Allergies MEDICATIONS: Current Outpatient Medications Medication Sig - gabapentin (NEURONTIN) 300 mg capsule Take 300 mg by mouth three times daily. - naproxen sodium (ALEVE) 220 mg cap Take 1 capsule by mouth as needed. - RYBELSUS 7 mg tablet Take 7 mg by mouth once daily. - oxyCODONE-acetaminophen (PERCOCET) 5-325 mg tablet Take 1 tablet by mouth three times daily. - JANUVIA 100 mg tablet Take 100 mg by mouth once daily. - ibuprofen (MOTRIN) 600 mg tablet Take 1 tablet by mouth every 6 hours as needed for Pain. - atorvastatin (LIPITOR) 40 mg tablet - XIGDUO XR 10-1,000 mg XR tab Take 1 tablet by mouth daily with breakfast. - TRADJENTA 5 mg tab Take 5 mg by mouth once daily. - meloxicam (MOBIC) 7.5 mg tablet Take 7.5 mg by mouth once daily. - DULoxetine (CYMBALTA) 60 mg capsule Take 60 mg by mouth once daily. No current facility-administered medications for this visit. SOCIAL HISTORY: Social History Tobacco Use - Smoking status: Current Every Day Smoker Packs/day: 1.00 Types: Cigarettes - Smokeless tobacco: Never Used Vaping Use - Vaping Use: Never used Substance Use Topics - Alcohol use: No - Drug use: Not Currently FAMILY HISTORY:History reviewed. No pertinent family history. Ros: GENERAL:No weight loss, No malaise, No fevers HEENT:Negative for frequent or significant headaches, No changes in hearing or vision, no nose bleeds or other nasal problems" CARDIOVASCULAR: Negative for chest pain, Negative for leg swelling, Negative for palpitaions RESPIRATORY:Negative for cough, Negative for wheezing , Negative for shortness of breath GASTROINTESTINAL: Negative for abdominal discomfort, Negative for blood in stools, Negative for black stools and Negative for change in bowel habits GENITOURINARY: No history of dysuria, frequency or incontinence. ENDOCRINE:None MUSCULOSKELETAL: Negative for joint pain , Negative for swelling, Positive for:, weakness of muscles or joints, back pain NEUROLOGIC:Negative for focal numbness Negative for weakness Negative for headache Negative for syncope Negative for dizziness HEMATOLOGIC/LYMPHATIC/IMMUNOLOGIC: Negative for prolonged bleeding, bruising easily or swollen nodes. EXAMINATION: BP 102/74 Pulse 66 Ht 188 cm (6' 2") Wt 63.5 kg (140 lb) BMI 17.97 kg/m? Body mass index is 17.97 kg/m?. General appearance: thin and frail appearing, alert, in no acute distress Presents in wheelchair Head: Normocephalic, atraumatic Eyes: Anicteric sclera , Pupils are equally round and reactive Neck: No JVD, Trachea midline Rectal: perirectal abscess IANDD site healed, alice cleft with 7mm openoing, tracks 1.4cm at 9 oclock and 1.7c,m at 12 oclock, no erythema or purulence Extremities:No clubbing, cyanosis, or edema. Neuro: Alert and oriented times three, No apparent distress LABS: Hgb A1c 10/25/2020 12.1 05/20.2020 -13.5 CEA 05/20 7.1, Ca 19-9 191 IMAGING: CT chest abd/pelvis (more content not included)... [facility] 01-16-2021 History of Past i llness Narrative Problem Noted Date Resolved Date Perirectal abscess 01/16/2021 08/21/2021 Perineal abscess 06/13/2019 05/29/2020 NO SHOW 08/31/2013 05/29/2020 documented as of this encounter (statuses as of 02/15/2022) [facility]04-14-2021 History of Past illness Narrative* Problem Noted Date Resolved Date Perirectal abscess 01/16/2021 08/21/2021 Perineal abscess 06/13/2019 05/29/2020 NO SHOW 08/31/2013 05/29/2020 documented as of this encounter (statuses as of 04/21/2022) [facility] noteNo assessment information availableWMount St. [facility] Work Phone: Evaluation note* Diagnosis Urinary tract infection associated with indwelling urethral catheter, initial encounter (HCC)- [facility] Injury of lumbar spinal cord, sequela ([facility])- Primary Neuropathic pain [facility] Diagnosis Paraplegia (HCC)- Primary Paraplegia History of lumbar fusion Paraplegia (HCC) Paraplegia History of [facility]aplegia ([facility]) Paraplegia History of lumbar fusion [facility]* Diagnosis Bilateral ureteral calculi- Primary Bladder calculus Other calculus in bladder documented in this encounter [facility]* Diagnosis Septic shock (HCC)- Primary Septic shock (HCC) Urinary obstruction Decubitus ulcer of sacral region, stage 2 (HCC) Injury of lumbar spinal cord, sequela (HCC) Neuropathic pain Pressure injury of coccygeal region, stage 3 (HCC) Bacteremia Pressure injury of coccygeal region, stage 3 (HCC) Calculus of ureter documented in this encounter [facility]* Diagnosis Paraplegia (HCC)- Primary Paraplegia History of lumbar fusion Sacral insufficiency fracture, initial encounter [facility] Diagnosis Bladder calculus- Primary Other calculus in bladder Bladder calculus Other calculus in bladder Bilateral ureteral calculi Calculus of ureter documented in this encounter [facility]* Diagnosis Sacral insufficiency fracture, initial encounter [facility] Diagnosis Sacral insufficiency fracture, initial encounter- Primary Failed back surgical syndrome Other unspecified back disorder Sacral insufficiency fracture, initial encounter [facility] Diagnosis Positive blood cultures- Primary Positive blood cultures Lumbar stenosis with neurogenic claudication Osteoarthritis, unspecified osteoarthritis type, unspecified site Other intervertebral disc displacement, lumbar region Pressure injury of coccygeal region, stage 3 (HCC) documented in this encounter [facility]* Diagnosis Spinal cord injury, lumbar, without spinal bone injury, sequela (HCC)- Primary Neuropathic pain documented in this encounter [facility] note* Diagnosis Paraplegia (HCC)- Primary Paraplegia Reflex neurogenic bladder Neurogenic bladder, NOS Neuropathic pain Neuralgia, neuritis, and radiculitis, unspecified Neurogenic bowel [facility]* Diagnosis Paraplegia (HCC)- Primary Paraplegia Reflex neurogenic bladder Neurogenic bladder, NOS Neuropathic pain Neuralgia, neuritis, and radiculitis, unspecified Neurogenic bowel Urinary retention Retention of urine, unspecified [facility]* Diagnosis Sacral insufficiency fracture, initial encounter [facility]* Diagnosis Paraplegia (HCC)- Primary Paraplegia Neuropathic pain Neuralgia, neuritis, and radiculitis, unspecified Neurogenic bowel Reflex neurogenic bladder Neurogenic bladder, NOS [facility]* Diagnosis Osteoporosis, unspecified osteoporosis type, unspecified pathological fracture presence- Primary [facility]* Diagnosis Neurogenic bladder- Primary Neurogenic bladder, NOS Paraplegia (HCC) Paraplegia Urinary retention Retention of urine, unspecified Gross hematuria [facility] Pressure ulcer of sacral region, unspecified stage- Primary documented in this encounter [facility] note* Diagnosis Chronic osteomyelitis (HCC)- Primary Chronic osteomyelitis, site unspecified Chronic osteomyelitis of sacrum (HCC) Chronic osteomyelitis, other specified site Severe protein-calorie malnutrition (HCC) Other severe protein-calorie malnutrition Ureteral calculi Calculus of ureter Complicated UTI (urinary tract infection) Urinary tract infection, site not specified Pyelonephritis Pyelonephritis, unspecified Neurogenic bladder Neurogenic bladder, NOS Type 2 diabetes mellitus with hyperglycemia, with long-term current use of insulin (HCC) Chronic indwelling Santana catheter Other postprocedural status documented in this encounter [facility] note* Diagnosis Paraplegia (HCC)- Primary Paraplegia Neurogenic bladder Neurogenic bladder, NOS Gross hematuria Neuropathic pain Neuralgia, neuritis, and radiculitis, unspecified Pressure injury of skin, unspecified injury stage, unspecified location documented in this encounter [facility] note* Diagnosis Ureteral stent present- Primary Kidney stone Calculus of kidney Hydronephrosis, unspecified hydronephrosis type documented in this encounter [facility] note* Diagnosis Chronic osteomyelitis (HCC)- Primary Chronic osteomyelitis, site unspecified Severe protein-calorie malnutrition (HCC) Other severe protein-calorie malnutrition Ureteral calculi Calculus of ureter Complicated UTI (urinary tract infection) Urinary tract infection, site not specified Neurogenic bladder Neurogenic bladder, NOS Type 2 diabetes mellitus with hyperglycemia, with long-term current use of insulin (HCC) documented in this encounter [facility] note* Diagnosis Other acute osteomyelitis, other site (HCC)- Primary Other acute osteomyelitis, other site (HCC) Pressure injury of coccygeal region, stage 3 (HCC) Lumbar stenosis with neurogenic claudication Osteoarthritis, unspecified osteoarthritis type, unspecified site Other intervertebral disc displacement, lumbar region Pressure injury of coccygeal region, stage 3 (HCC) documented in this encounter [facility] Discharge instructions* Attachments The following attachments cannot be sent through Care Everywhere. * Urinary Tract Infections in Adults (Armenian) [facility] Consultation (Routine) - Pending Review Specialty Diagnoses / Procedures Referred By Daisy paredes Referred To Contact Urology Diagnoses Urinary obstruction Procedures ND OFFICE/OUTPATIENT [facility] 60 MINUTES Otis Mckenzie DO [address] [place] [address] Joan Patel MD [address] [address] Referral ID Status Reason Start Date Expiration Date Visits Requested Visits Authorized [id number] Pending Review Specialty Services Required 04/20/2024 04/20/2025 1 1 * Consultation (Routine) - Pending Review Specialty Diagnoses / Procedures Referred By Contac t Referred To Contact Wound Care Diagnoses Decubitus ulcer of sacral region, stage 2 (HCC) Procedures ND OFFICE/OUTPATIENT [facility] 60 MINUTES Sumi Everett APRN - CNP [address] [place] [address] Sb Op Wnd Ostomy [facility] [address] [place] [address] Referral ID Status Reason Start Date Expiration Date Visits Requested Visits Authorized [id number] Pending Review Specialty Services Required 04/15/2024 04/15/2025 1 1 [facility] for referral (narrative)No reason for referral information availableWMount [facility]. [facility] Work Phone: Reason for visit Narrative* Service Level Authorization (Routine) - Closed Specialty Diagnoses / Procedures Referred By Contac t Referred To Contact Physical Medicine & Rehab/PM&R Diagnoses Paraplegia (HCC) Reflex neurogenic bladder Procedures CYSTOMETROGRAM W/STARS ANALYTICAL LEAD BLADDER IRRIGATION, SIMPLE, LAVAGE &/OR INSTILLATION COMPLEX UROFLOWMETRY ELECTROMYOGRAPHY STUDIES, ANAL/URETHRAL SPHINCTER, OTHER THAN NEEDLE, ANY TECHNIQUE VOIDING PRESSURE STUDIES; INTRA-ABDOMINAL VOIDING PRESSURE Faisal Simeon DO [address] [place] [address] Phone: tel: fax: [facility] PM&R [address] [place] [address] Phone: tel: Referral ID Status Reason Start Date Expiration Date V isits Requested Visits Authorized [id number] Closed Consultation -[facility] 06/13/2024 06/13/2025 1 1 [facility] for visit Narrative* MRI/CT (Routine) - Authorized Specialty Diagnoses / Procedures Referred By Contac t Referred To Contact Radiology / RADIO [facility] Diagnoses Pressure ulcer of sacral region, unspecified stage PT WILL NEED A EVERETT LIFT SACRUM/PELVIS WO/W Pressure ulcer of sacral region, unspecified stage [L89.159] BIRDIE WILL FAX ORDER Procedures MRI PELVIS W/O & W/CONTRAST MATERIAL MRI WWO NEU1 B 300 Kristine Howell, PAINTER STRUCTURAL STEEL [address] [facility] [place] [address] Phone: tel: fax: Radiology [address] [place] [address] Phone: tel: Referral ID Status Reason Start Date Expiration Date V isits Requested Visits Authorized [id number] Authorized 11/14/2024 01/13/2025 3 3 [facility] Summary Purpose Family History No Family History Records FoundNo Family History Records FoundNo Family History Records FoundNo Family History Records FoundNo Family History Records FoundNo Family History Records FoundNo Family History Records FoundNo Family History Records FoundNo Family History Records FoundNo Family History Records FoundNo Family History Records FoundNo Family History Records FoundNo Family History Records FoundNo Family History Records Found Advance Directives No Advanced Directives Records FoundDocuments on File Type Date Recorded Patient Wet Cotton Feeder Expl anation ACP-Advance Directive ACP-Power of Document Control Manager Latest Code Status on File Code Status Date Activated Date Inactivated Comments Full Code 10/24/2020 7:42 PM Full Code 01/05/2017 7:24 PM 01/06/2017 9:11 PM Documents on File Type Date Recorded Patient Wet Cotton Feeder Expl anation Advance Directive(s) 01/04/2022 9:24 PM Advance Directive(s) 11/25/2021 5:10 AM Advance Directive(s) 09/03/2021 6:47 PM Advance Directive(s) 06/17/2021 11:41 AM Advance Directive(s) 04/29/2021 9:06 AM Advance Directive(s) 01/18/2021 2:38 PM Advance Directive(s) 05/04/2020 10:19 AM Advance Directive(s) 06/13/2019 1:57 PM Advance Directive(s) 06/11/2019 1:40 PM Advance Directive(s) 05/21/2017 7:57 PM Latest Code Status on File Code Status Date Activated Date Inactivated Comments Full Code 01/04/2022 10:38 PM 01/25/2022 2:02 AM Full Code Order Discussed With: Patient Full Code 11/26/2021 12:08 PM 12/18/2021 12:26 AM Date Activated Date Inactivated Comments 04/14/2024 10:40 PM Date Activated Date Inactivated Comments 04/14/2024 10:40 PM 04/20/2024 8:27 PM Date Activated Date Inactivated Comments 04/14/2024 10:40 PM 04/20/2024 8:27 PM Date Activated Date Inactivated Comments 05/05/2024 4:59 PM Date Activated Date Inactivated Comments 04/14/2024 10:40 PM 04/20/2024 8:27 PM Date Activated Date Inactivated Comments 05/05/2024 4:59 PM 05/06/2024 11:36 PM Date Activated Date Inactivated Comments 04/14/2024 10:40 PM 04/20/2024 8:27 PM Date Activated Date Inactivated Comments 05/05/2024 4:59 PM 05/06/2024 11:36 PM Date Activated Date Inactivated Comments 05/18/2024 12:15 AM 05/22/2024 11:24 PM Date Activated Date Inactivated Comments 05/05/2024 4:59 PM 05/06/2024 11:36 PM Date Activated Date Inactivated Comments 04/14/2024 10:40 PM 04/20/2024 8:27 PM Date Activated Date Inactivated Comments 04/24/2023 4:01 PM 04/28/2023 8:03 PM Question Answer Comments Full Code Order Discussed With: Patient Date Activated Date Inactivated Comments 01/04/2022 10:38 PM 01/25/2022 2:02 AM Question Answer Comments Full Code Order Discussed With: Patient Date Activated Date Inactivated Comments 11/26/2021 12:08 PM 12/18/2021 12:26 AM Question Answer Comments Full Code Order Discussed With: Patient Date Activated Date Inactivated Comments 05/18/2024 12:15 AM 05/22/2024 11:24 PM Date Activated Date Inactivated Comments 05/05/2024 4:59 PM 05/06/2024 11:36 PM Date Activated Date Inactivated Comments 04/14/2024 10:40 PM 04/20/2024 8:27 PM Date Activated Date Inactivated Comments 04/24/2023 4:01 PM 04/28/2023 8:03 PM Question Answer Comments Full Code Order Discussed With: Patient Date Activated Date Inactivated Comments 01/04/2022 10:38 PM 01/25/2022 2:02 AM Question Answer Comments Full Code Order Discussed With: Patient Date Activated Date Inactivated Comments 11/26/2021 12:08 PM 12/18/2021 12:26 AM Question Answer Comments Full Code Order Discussed With: Patient Date Activated Date Inactivated Comments 02/17/2025 3:57 PM 02/23/2025 12:11 AM Question Answer Comments Full Code Order Discussed With: Patient and Surr ogate Decision Maker Surrogate Decision Maker Name: Sumi Reynolds Surrogate Decision Maker Date Activated Date Inactivated Comments 04/24/2023 4:01 PM 04/28/2023 8:03 PM Date Activated Date Inactivated Comments 01/04/2022 10:38 PM 01/25/2022 2:02 AM Date Activated Date Inactivated Comments 11/26/2021 12:08 PM 12/18/2021 12:26 AM Question Answer Comments Full Code Order Discussed With: Patient Date Activated Date Inactivated Comments 04/22/2025 2:37 AM 04/29/2025 2:15 AM Date Activated Date Inactivated Comments 05/18/2024 12:15 AM 05/22/2024 11:24 PM Date Activated Date Inactivated Comments 05/05/2024 4:59 PM 05/06/2024 11:36 PM Date Activated Date Inactivated Comments 04/14/2024 10:40 PM 04/20/2024 8:27 PM Reason for Referral Status Reason Specialty Diagnoses / Procedures Referred By Contact Referred To Contact Open Specialty Services Required Diabetes Services Diagnoses Diabetes mellitus without complication (HCC) [place] [address] [place] [address] [facility] [address] [place] [address] Scheduling Instructions [facility] [address] [place], [place] [address] Specialty Diagnoses / Procedures Referred By Contact Referred To Contact Physical Medicine & Rehab/PM&R Diagnoses Paraplegia (HCC) History of lumbar fusion Vaishali Pierre DO [address] [place] [address] LTAC, located [facility] [address] [place] [phone] Referral ID Status Reason Start Date Expiration Date V isits Requested Visits Authorized [id number] Authorized 02/10/2024 02/09/2025 1 1 Scheduling Instructions You have been referred to the Department of Physical Medicine and Rehabilitation. Please call to schedule an appointment . Please arrive 20 minutes prior to your appointment. A personal identification card and insurance card(s) are required at the time of registry. If you have radiology films or other pertinent documents from an outside hospital, please bring them with you. If you are unable to keep your appointment, please call at least 24 hours in advance. Question Answer Patient to be evaluated for: Spinal Cord Injury Is the paralysis impacting both the arms and legs? No - T12/L1 SCI Comments T12/L1 SCI s/p epidural abscess and multilevel fusion in 2021. Needs ongoing SCI care. Specialty Diagnoses / Procedures Referred By Daisy t Referred To Contact Radiology Diagnoses Paraplegia (HCC) History of lumbar fusion Procedures MR L-SPINE W/+W/O Vaishali Pierre DO [address] [place] [address] [facility] [address] [place] [address] Referral ID Status Reason Start Date Expiration Date V isits Requested Visits Authorized [id number] Authorized 02/10/2024 02/09/2025 1 1 Specialty Diagnoses / Procedures Referred By Daisy t Referred To Contact Radiology Diagnoses Paraplegia (HCC) History of lumbar fusion Procedures XR L-SPINE AP+LATERAL 2-3 VIEWS Vaishali Pierre DO [address] [place] [address] [facility] [address] [place] [address] [place] [address] Referral ID Status Reason Start Date Expiration Date Visits Re quested Visits Authorized [id number] Closed 02/10/2024 02/09/2025 1 1 Referral ID Status Reason Start Date Expiration Date Visits Re quested Visits Authorized [id number] Closed 02/10/2024 02/09/2025 1 1 Specialty Diagnoses / Procedures Referred By Contac t Referred To Contact Diagnoses Paraplegia (HCC) History of lumbar fusion Sacral insufficiency fracture, initial encounter Vaishali Pierre DO [address] [place] [address] Referral ID Status Reason Start Date Expiration Date Visits Requested Visits Authorized [id number] Authorized Consultatio n-[facility] 04/06/2024 04/06/2025 1 1 Scheduling Instructions You have been referred to the Spine Center. You will be contacted to schedule your appointment within 24 - 48 hours. If you are not contacted within this time frame please call the Spine Center at [phone] to schedule your appointment. Question Answer Reason for Referral: Myelopathy [18] Comments Pt with h/o upper lumbar SCI due to epidural abscess, ultimately requiring T12- L5 fusion. He was seen in PM&R clinic for opinion regarding ongoing care. 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 Consultation for opinion regarding further management. SCI clinic follow up being pursued as well. Specialty Diagnoses / Procedures Referred By Contac t Referred To Contact Radiology Diagnoses Sacral insufficiency fracture, initial encounter Procedures XR SCOLIOSIS PA + LAT 2 OR 3 VIEWS Otis Mejia MD [address] [place], [place] [id number] [facility] [address] [place] [address] [place] [address] Referral ID Status Reason Start Date Expiration Date Visits Re quested Visits Authorized [id number] Closed 05/11/2024 05/11/2025 1 1 Specialty Diagnoses / Procedures Referred By Contac t Referred To Contact Radiology Diagnoses Sacral insufficiency fracture, initial encounter Procedures XR SACRUM-COCCYX 3 VIEWS Berna Johnson PA-C [address] [place] [address] [place] [address] [facility] [address] [place] [address] [place] [address] Referral ID Status Reason Start Date Expiration Date Visits Re quested Visits Authorized [id number] Closed 05/10/2024 05/10/2025 1 1 Specialty Diagnoses / Procedures Referred By Contac t Referred To Contact Radiology Diagnoses Sacral insufficiency fracture, initial encounter Procedures MR C-SPINE W/O Otis Mejia MD [address] [place] [address] [facility] MRI [address] [place] [address] Referral ID Status Reason Start Date Expiration Date V isits Requested Visits Authorized [id number] Authorized 05/11/2024 05/11/2025 1 1 Specialty Diagnoses / Procedures Referred By Contac t Referred To Contact Radiology Diagnoses Sacral insufficiency fracture, initial encounter Procedures MR T-SPINE W/O Otis Mejia MD [address] [place] [address] [facility] MRI [address] [place] [address] Referral ID Status Reason Start Date Expiration Date V isits Requested Visits Authorized [id number] Authorized 05/11/2024 05/11/2025 1 1 Specialty Diagnoses / Procedures Referred By Contac t Referred To Contact Radiology Diagnoses Sacral insufficiency fracture, initial encounter Procedures BD BONE DENSITY SURVEY Otis Mejia MD [address] [place] [address] S BONE DENSITY [address] [place] [address] Referral ID Status Reason Start Date Expiration Date V isits Requested Visits Authorized [id number] Authorized 05/11/2024 05/11/2025 1 1 Specialty Diagnoses / Procedures Referred By Contac t Referred To Contact Physical Medicine & Rehab/PM&R Diagnoses Paraplegia (HCC) Reflex neurogenic bladder Faisal Simeon DO [address] [id number] [facility] [address] [id number] Referral ID Status Reason Start Date Expiration Date Visits Requested Visits Authorized [id number] [facility] 06/13/2025 3 3 Scheduling Instructions Please schedule this appointment through [employer] or call the phone number listed above. Thank you. Question Answer Is study to assess a baseline neurogenic bladder or for diagnosis of complaint? neurogenic bladder Does the patient have a known history of autonomic dysreflexia? No Should bladder medications be held prior to UDS? No Specialty Diagnoses / Procedures [facility] Referred To Contact Vocational Services Diagnoses Paraplegia (HCC) Faisal Simeon DO [address] [place] [address] Referral ID Status Reason Start Date Expiration Date Visits Requested Visits Authorized [id number] Authorized [facility] 06/13/2024 06/13/2025 3 3 Scheduling Instructions Please call to schedule an appointment. If you are unable to keep your appointment, please call [phone] at least 24 hours in advance. Question Answer Reason for request: Basic Needs (i.e. medical equipment, housing, food, rent, utilities, transpo), Benefits Applications (i.e. social security, job and family services), Vocational (i.e. [place] [employer]hab [employer], volunteer work), Other Support Services (i.e. medication programs, home accessibility, legal assistance) Other support services requested: Home accessibility Referral ID Status Reason Start Date Expiration Date Visits Re quested Visits Authorized [id number] Closed 05/11/2024 05/11/2025 1 1 Referral ID Status Reason Start Date Expiration Date Visits Re quested Visits Authorized [id number] Closed 05/11/2024 05/11/2025 1 1 Discharge Instructions * Discharge Instr - Diet* Opal Vigil MD - 10/24/2020 1:33 PM EST ? Good nutrition is important when healing from an illness, injury, or surgery. Follow any nutrition recommendations given to you during your hospital stay. ? If you were given an oral nutrition supplement while in the hospital, continue to take this supplement at home. You can take it with meals, in-between meals, and/or before bedtime. These supplements can be purchased at most local grocery stores, pharmacies, and Samplesaint-stores. ? If you have any questions about your diet or nutrition, call the hospital and ask for the dietitian. * Discharge Instr - ADELINE* Opal Vigil MD - 10/24/2020 1:33 PM EST Continuity of Care Form Patient Name: Anmol Reynolds : 1960 Admit date: 10/24/2020 Discharge date: Code Status Order: Prior Advance Directives: Advance Care Flowsheet Documentation Date/Time Healthcare Directive Type of Healthcare Directive Copy in Chart Healthcare Agent Appointed Healthcare Agent's Name Healthcare Agent's Phone Number 10/24/20 0815 No, patient does not have an advance directive for healthcare treatment -- -- -- -- -- Admitting Physician: Opal Vigil MD PCP: AMBROSIO MONROY DO Discharging Nurse: Discharging Hospital Unit/Room#: [facility]LOZ OR Pool/NONE Discharging Unit Phone Number: Emergency Contact: Extended Emergency Contact Information Primary Emergency Contact: Leyla Reynolds [facility] Relation: Spouse Pharmaceutical Sales Representative needed? No Secondary Emergency Contact: Ronald Reynolds Mobile Relation: Brother/Sister Past Surgical History: Past Surgical History: Procedure Laterality Date ANKLE SURGERY Right He has a titanium plate to the right ankle KNEE SURGERY ACL ORTHOPEDIC SURGERY Immunization History: There is no immunization history on file for this patient. Active Problems: Patient Active Problem List Diagnosis Code Hypertension I10 Hyperglycemia R73.9 Hip sprain S73.109A Anxiety F41.9 Spinal stenosis of lumbar region with neurogenic claudication M48.062 Herniated nucleus pulposus, L5-S1, left M51.27 Lumbar radiculopathy M54.16 Pilonidal cyst without abscess L05.91 Nicotine use disorder F17.200 Unspecified osteoarthritis, unspecified site M19.90 Diabetes mellitus without complication (HCC) E11.9 Abnormal finding on EKG R94.31 Other intervertebral disc displacement, lumbar region M51.26 Lumbar stenosis with neurogenic claudication M48.062 Isolation/Infection: Isolation No Isolation Patient Infection Status Infection Onset Added Last Indicated Last Indicated By Review Planned Expiration Resolved Resolved By None active Resolved COVID-19 Rule Out 10/18/20 10/18/20 10/18/20 COVID-19 Ambulatory (Ordered) 10/19/20 Rule-Out Test Resulted Nurse Assessment: Last Vital Signs: BP (!) 144/80 Pulse 80 Temp 97.8 F (36.6 C) (Temporal) Resp 16 Ht 6' 2" (1.88 m) Wt 200 lb (90.7 kg) SpO2 97% BMI 25.68 kg/m Last documented pain score (0-10 scale): Pain Level: 4 Last Weight: Wt Readings from Last 1 Encounters: 10/24/20 200 lb (90.7 kg) Mental Status: {IP PT MENTAL STATUS:} IV Access: { ADELINE IV ACCESS:367762343} Nursing Mobility/ADLs: Walking {CHP DME ADLs:948696790} Transfer {CHP DME ADLs:155717916} Bathing {CHP DME ADLs:711565700} Dressing {CHP DME ADLs:612046095} Toileting {CHP DME ADLs:910991031} Feeding {CHP DME ADLs:745112315} Chlorine Cells Operator {CHP DME ADLs:121989253} Med Delivery { ADELINE MED Delivery:946013056} Wound Care Documentation and Therapy: Elimination: Continence: Bowel: {YES / NO:} Bladder: {YES / NO:} Urinary Catheter: {Urinary Catheter:830948119} Colostomy/Ileostomy/Ileal Conduit: {YES / NO:} Date of Last BM: Intake/Output Summary (Last 24 hours) at 10/24/2020 1333 Last data filed at 10/24/2020 1139 Gross per 24 hour Intake 1000 ml Output 325 ml Net 675 ml No intake/output data recorded. Safety Concerns: { ADELINE Safety Concerns:103231750} Impairments/Disabilities: { ADELINE Impairments/Disabilities:033434510} Nutrition Therapy: Current Nutrition Therapy: { ADELINE Diet List:997309337} Routes of Feeding: {CHP DME Other Feedings:256999049} Liquids: {Mechanical Service Representative liquid thickness:07242} Daily Fluid Restriction: {CHP DME Yes amt example:197298225} Last Modified Barium Swallow with Video (Video Swallowing Test): {Done Not Done Date:843900552} Treatments at the Time of Hospital Discharge: Respiratory Treatments: Oxygen Therapy: {Therapy; copd oxygen:30054} Ventilator: { CC Vent List:245003905} Rehab Therapies: {THERAPEUTIC INTERVENTION:4171343490} Weight Bearing Status/Restrictions: {[facility] Weight Bearin} Other Medical Equipment (for information only, NOT a DME order): {EQUIPMENT:193812496} Other Treatments: Patient's personal belongings (please select all that are sent with patient): {[facility] DME Belongings:827856942} RN SIGNATURE: {Esignature:466410614} CASE MANAGEMENT/SOCIAL WORK SECTION Inpatient Status Date: Readmission Risk Assessment Score: Readmission Risk Risk of Unplanned Readmission: 0 Discharging to Facility/ Agency Name: Address: Phone: Fax: Dialysis Facility (if applicable) Name: Address: Dialysis Schedule: Phone: Fax: Tuna Purse Seiner/Asphalt Screed Operator signature: {Esignature:549888904} PHYSICIAN SECTION Prognosis: {Prognosis:1332631828} Condition at Discharge: { Patient Condition:635479762} Rehab Potential (if transferring to Rehab): {Prognosis:9193358866} Recommended Labs or Other Treatments After Discharge: Physician Certification: I certify the above information and transfer of Anmol Salvador Reynolds is necessaryfor the continuing treatment of the diagnosis listed and that he requires {Admit to Appropriate Level of Care:98146} for {GREATER/LESS:532611719} 30 days. Update Admission H&P: {CHP DME Changes in HandP:731578959} PHYSICIAN SIGNATURE: * Additional Instructions* Opal Vigil MD - 10/24/2020 Every day change the dressing frequently to keep clean and dry 4 x 4 gauze pads paper tape. May shower 3 days. Avoid soaking or soap for 1 week. Recheck 1 month [id number]. E prescribed [place] 5/325 #28 done documented in this encounter History of Present Illness * hTomas Quinones MD - 10/25/2020 1:11 PM EST Hospitalist Progress Note PCP: AMBROSIO MONROY DO Date of Admission: 10/24/2020 Chief Complaint: No chief complaint on file. Subjective: Patient is complaining of back pain. 12 point ROS negative other than mentioned above Medications: Reviewed Infusion Medications sodium chloride Stopped (10/25/20 0628) dextrose Scheduled Medications sodium chloride flush 10 mL Intravenous 2 times per day bisacodyl 5 mg Oral Daily insulin lispro 10 Units Subcutaneous Once insulin lispro 0-12 Units Subcutaneous TID WC insulin lispro 0-6 Units Subcutaneous Nightly lidocaine 1 patch Transdermal Daily PRN Meds: diazePAM, sodium chloride flush, HYDROmorphone OR HYDROmorphone, acetaminophen, oxyCODONE, magnesium hydroxide, ondansetron OR ondansetron, glucose, dextrose, glucagon (rDNA), dextrose, benzocaine-menthol Intake/Output Summary (Last 24 hours) at 10/25/2020 1312 Last data filed at 10/25/2020 0829 Gross per 24 hour Intake 810 ml Output 2575 ml Net -1765 ml Exam: BP (!) 100/59 Pulse 80 Temp 97.7 F (36.5 C) (Oral) Resp 16 Ht 6' 2" (1.88 m) Wt 200 lb (90.7 kg) SpO2 97% BMI 25.68 kg/m General appearance: No apparent distress, appears stated age and cooperative. HEENT: . Conjunctivae/corneas clear. Neck: Trachea midline. Respiratory: Normal respiratory effort. Clear to auscultation Cardiovascular: Regular rate and rhythm Abdomen: Soft, non-tender, non-distended with normal bowel sounds. Musculoskeletal: No clubbing, cyanosis or edema bilaterally. Neuro: Non Focal Capillary Refill: Brisk,< 3 seconds Peripheral Pulses: +2 palpable, equal bilaterally Labs: Recent Labs 10/25/20456 WBC 10.9* HGB 13.3* HCT 39.0* PLT 232 Recent Labs 10/25/20456 NA 137 K 3.9 CL 100 CO2 23 BUN 13 CREATININE 0.57* CALCIUM 8.4* No results for input(s): AST, ALT, BILIDIR, BILITOT, ALKPHOS in the last 72 hours. No results for input(s): INR in the last 72 hours. No results for input(s): CKTOTAL, TROPONINI in the last 72 hours. Urinalysis: No results found for: NITRU, WBCUA, BACTERIA, RBCUA, BLOODU, SPECGRAV, GLUCOSEU Radiology: No orders to display Assessment/Plan: 1. L2-5 stenosis s/p decompression: pain control, DVT ppx, weight bearing per primary. 2. DMII: poorly controlled; diabetes education consulted; ok for discharge if not seen by them; referral made for outpatient 3. Hyperlipidemia: statin 4. Tobacco abuse: educated extensively on need for immediate smoking cessation by previous attending 5. DVT PPX per primary. Active Hospital Problems Diagnosis Date Noted Lumbar stenosis with neurogenic claudication [M48.062] 10/24/2020 Spinal stenosis of lumbar region with neurogenic claudication [M48.062] 07/07/2017 Additional work up or/and treatment plan may be added today or then after based on clinical progression. I am managing a portion of pt care. Some medical issues are handled by other specialists. Additional work up and treatment should be done in out pt setting by pt PCP and other out pt providers. In addition to examining and evaluating pt, I spent additional time explaining care, normal and abnormal findings, and treatment plan. All of pt questions were answered. Counseling, diet and education were provided. Case will be discussed with nursing staff when appropriate. Family will be updated if and when appropriate. Diet: DIET GENERAL; Carb Control: 4 carbs/meal (approximate 1800 kcals/day) Code Status: Full Code PT/OT Eval * Ye Prado, PAINTER STRUCTURAL STEEL - DOCUMENT MANAGEMENT TECHNICIAN - 10/25/2020 9:43 AM EST Patient is POD1 left and bilateral L2-3, L3-4, L4-5 microdecompression. Patient notes moderate amount of lumbar incisional pain that he describes as a pressure that is exacerbated by movement and laying supine. Pain is somewhat relieved with rest, laying on either his left side or right side and pain medication. I have added muscle relaxer to his medication regimen to help provide better pain control. Lumbar incision well approximated with no signs of infection. Patient has been instructed on dressing changes. Patient to discharge home this afternoon. Patient's prescriptions have been electronically sent to the pharmacy for him. Patient educated on side effects of narcotics and verbalized understanding. Patient to follow up outpatient with Dr. Vigil. * Brianna Webb RN - 10/25/2020 8:29 AM EST Shift assessment completed. Pt is alert and oriented x4, calm, cooperative. PERRLA, neuro assessment unremarkable. Lung sounds regular, unlabored, chest expansion symmetrical but diminished. Heart sounds WDL. Bowel sounds active x4 quadrants. Pt has c/o throat soreness related to intubation and pain 05/14. HE ws medicated with PRN Roxicodone. Pt has no additional requests at this time, resting comfortably in bed, call light within reach. * Karla Rodriguez RN - 10/24/2020 10:42 PM EST Admission and assessment completed Pt arrived from PACU via bed. Pt c/o pain to lower back. Medicated per DEC. Dressing intact with some scant shadowing. Hemovac in place with bright red drainage. Pt requested SCDs be removed. Educated on importance, pt understood but would still like them removed. One touch 439, Humalog given per order. Pt takes medication for his diabetes that the hospital does not carry and he did bring them with him. Cepacol lozenges given for sore throat. * Penny Howard RN - 10/24/2020 4:26 PM EST Pt eating dinner * Dawood Avalos RN - 10/24/2020 2:56 PM EST patient tolerated jello & applesauce. Spoke with . patient waiting for room to be assigned. * Dawood Avalos RN - 10/24/2020 2:12 PM EST Patient taking ice chips well. Pt's disc of his MRI was given to him & placed in his belonging's bag. * Jimenez tSaples RN - 10/24/2020 9:02 AM EST Pt received erector spinae block by Dr Benites, pt tolerated well documented in this encounter Assessments Diagnosis Spinal stenosis of lumbar region with neurogenic claudication- Primary Spinal stenosis, lumbar region, with neurogenic claudication Muscle spasm Spasm of muscle Diabetes mellitus without complication (HCC) Type II or unspecified type diabetes mellitus without mention of complication, not stated as uncontrolled Lumbar stenosis with neurogenic claudication Spinal stenosis, lumbar region, with neurogenic claudication [place] [address] DISCHARGE SUMMARY PATIENT NAME: ANMOL REYNOLDS : 1960 MED REC NO: [id number] ROOM: [facility] ACCOUNT NO: [id number] ADMIT DATE: 10/24/2020 PROVIDER: Opal Vigil MD DISCH DATE: HOSPITAL COURSE: Left and bilateral L2-L3, L3-L4, L4-L5 micro decompressions. The patient tolerated the procedure well. Wound drain in place, removal the next day. Once ambulatory with bladder control, plan discharge in good condition. DISCHARGE DIAGNOSIS: L2, L3, L4, L5 canal stenosis with neurogenic claudication, improved. DISCHARGE MEDICATION: [place] 5/325, #28. DISCHARGE INSTRUCTIONS: The patient has been instructed to keep the wound clean and dry about three days, avoiding soaking or soap for a week, recheck in a month. If he has any questions or problems, please contact the office. OPAL VIGIL MD [id number] Doc#: [id number] CC: Chief Complaint and Reason for Visit Chief Complaint LABWORK Chief Complaint LABWORK HALF-WAY LAB WORK Chief Complaint LABWORK HALF-WAY LAB WORK HALF-WAY LAB WORK Chief Complaint HALF-WAY LAB WOR K HALF-WAY LAB WORK HALF-WAY LAB WORK LABWORK Chief Complaint LABWORK HALF-WAY LAB WORK LABWORK Chief Complaint LABWORK HALF-WAY LAB WORK LABWORK HALF-WAY LAB WORK Chief Complaint Admit Date HALF-WAY LAB WORK September 20 5:00am HALF-WAY LAB WORK September 29 4:00am HALF-WAY LAB WORK October 03 5:00am LABWORK October 10, 2024 5: 00am HALF-WAY LAB WORK November 29 4:45am LABWORK November 30, 2024 5:00am Chief Complaint Admit Date HALF-WAY LAB WORK September 20 5:00am HALF-WAY LAB WORK September 29 4:00am HALF-WAY LAB WORK October 03 5:00am LABWORK October 10, 2024 5: 00am HALF-WAY LAB WORK November 29 4:45am LABWORK November 30, 2024 5:00am HALF-WAY LAB WORK December 07, 2024 5: 00am Chief Complaint Admit Date HALF-WAY LAB WORK November 29 4:45am LABWORK November 30, 2024 5:00am HALF-WAY LAB WORK December 07, 2024 5: 00am HALF-WAY LAB WORK January 09, 2025 5: 00am LABWORK February 15, 2025 4:20a m LABOWRK March 01, 2025 5:00a m Chief Complaint Admit Date HALF-WAY LAB WORK November 29 4:45am LABWORK November 30, 2024 5:00am HALF-WAY LAB WORK December 07, 2024 5: 00am HALF-WAY LAB WORK January 09, 2025 5: 00am LABWORK May 14th, 2025 4:20a m Additional Source Comments (unrecognized sect ion and content) No Status Records FoundNo Status Records FoundNo Status Records FoundNo Status Records FoundNo Status Records FoundNo Status Records FoundNo Status Records FoundNo Status Records FoundNo Status Records FoundNo Status Records FoundNo Status Records FoundNo Status Records FoundNo Status Records FoundNo Status Records Found INFORMATION SOURCE (unrecogn ized section and content) DATE CREATED AUTHOR 03/30/2018 [facility] DATE CREATED AUTHOR AUTHOR'S ORGANIZ ATION 03/31/2018 [facility] DATE CREATED AUTHOR AUTHOR'S ORGANIZ ATION 06/22/2018 [facility] DATE CREATED AUTHOR AUTHOR'S ORGANIZ ATION 07/08/2018 [facility] DATE CREATED AUTHOR AUTHOR'S ORGANIZ ATION 10/20/2020 [facility] DATE CREATED AUTHOR AUTHOR'S ORGANIZ ATION 10/27/2020 [facility] DATE CREATED AUTHOR AUTHOR'S ORGANIZ ATION 05/24/2021 [facility] DATE CREATED AUTHOR AUTHOR'S ORGANIZ ATION 10/16/2021 [facility] DATE CREATED AUTHOR AUTHOR'S ORGANIZ ATION 04/25/2022 [facility] DATE CREATED AUTHOR AUTHOR'S ORGANIZ ATION 11/10/2024 [facility] DATE CREATED AUTHOR AUTHOR'S ORGANIZ ATION 03/22/2025 [facility] DATE CREATED AUTHOR AUTHOR'S ORGANIZ ATION 03/27/2025 [facility] DATE CREATED AUTHOR AUTHOR'S ORGANIZ ATION 04/29/2025 [facility] DATE CREATED AUTHOR AUTHOR'S ORGANIZ ATION 05/01/2025 [facility] Reason for Visit (unrecogniz ed section and content) Status Reason Specialty Diagnoses / Procedures Referre d By Contact Referred To Contact Diagnoses L2-3-4-5 STENOSIS Procedures ND LAMINECTOMY,>2 SGMT,LUMBAR LEFT BILATERAL L2-3-4-5 DECOMPRESSION. 2.5 HOURS, C-ARM, POWER NESTOR. 1ST CASE (PAT AT [facility]) Opal Vigil MD [address] [address] [facility] Reason Comments Urinary Retention Reason Onset Date Comments new patient appointment 08/06/2023 Reason Onset Date Comments Referral 09/04/2023 Reason Onset Date Comments Referral 08/19/2023 Confirm Receipt of Referral for SPEECH LANGUAGE PATHOLOGIST Appt Scheduling Reason Comments Pain Pt is here for pain in both legs. He states he has "jolts"of pain in his legs as well as a burning sensation. He was put on Lyrica which he states is not working. Reason Comments New patient, to establish relationship Salvador cuello mri Specialty Diagnoses / Procedures Referred By Daisy paredes Referred To Contact Radiology Diagnoses Paraplegia (HCC) History of lumbar fusion Procedures MR L-SPINE W/+W/O Vaishali Pierre, DO [address] [place] [address] S MRI [address] [place] [address] Referral ID Status Reason Start Date Expiration Date Visits Re quested Visits Authorized [id number] Closed 02/10/2024 02/09/2025 1 1 Reason Comments Leg Pain Specialty Diagnoses / Procedures Referred By Daisy paredes Referred To Contact Diagnoses Urinary obstruction Septic shock (HCC) Procedures - Lauryn Hooker MD [address] [address] [facility] [address] [place] [address] Referral ID Status Reason Start Date Expiration Date Visits Re quested Visits Authorized [id number] 1 1 Reason Onset Date Comments Surgery Scheduling 04/15/2024 Reason Onset Date Comments Reschedule 05/04/2024 Specialty Diagnoses / Procedures Referred By Daisy paredes Referred To Contact Diagnoses Calculus of ureter Procedures ND CYSTOURETHROSCOPY ND LITHOLAPAXY COMP/LG > 2.5 CM ND CYSTO W/URETEROSCOPY W/LITHOTRIPSY ND CYSTO W/INSERT URETERAL STENT CYSTOSCOPY POSSIBLE CYSTOLITHOLAPAXY BILATERAL URETEROSCOPY ASTRID LASER LITHOTRIPSY BILATERAL URETERAL STENT CHANGE Joan Patel MD [address] [place] [address] [address] [place] [address] Referral ID Status Reason Start Date Expiration Date Visits Re quested Visits Authorized [id number] 1 1 Reason Onset Date Comments Update 05/10/2024 Specialty Diagnoses / Procedures Referred By Contac t Referred To Contact Radiology Diagnoses Sacral insufficiency fracture, initial encounter Procedures XR SACRUM-COCCYX 3 VIEWS Berna Johnson PA-C [address] [place] [address] [facility] [address] [facility] [place] [address] Referral ID Status Reason Start Date Expiration Date Visits Re quested Visits Authorized [id number] Closed 05/10/2024 05/10/2025 1 1 Reason Onset Date Comments Labs Only 05/13/2024 Reason Comments Numbness/tingling New patient, to establish relationship Specialty Diagnoses / Procedures Referred By Contac t Referred To Contact Diagnoses Paraplegia (HCC) History of lumbar fusion Sacral insufficiency fracture, initial encounter Vaishali Pierre DO [address] [place] [address] Referral ID Status Reason Start Date Expiration Date V isits Requested Visits Authorized [id number] Closed Consultation -[facility] 04/06/2024 04/06/2025 1 1 Reason Comments Other Abnormal labs, blood cultures has been done to pt in facility, gram + cocci. Had back sx 2 yrs ago that resulted to paraplegia, pt is paralyze from waist down. Afebrile, aox4 Specialty Diagnoses / Procedures Referred By Contac t Referred To Contact Diagnoses Positive blood cultures Procedures - Heydi Concepcion MD [address] [place] [address] [facility] [address] [place] [address] Referral ID Status Reason Start Date Expiration Date Visits Re quested Visits Authorized [id number] 1 1 Reason Comments New Patient Leg Pain Pt states having jeri n on his paralyzed legs, pain rate 8/10. Reason Comments New patient, to establish relationship Specialty Diagnoses / Procedures Referred By Contact Referred To Contact Physical Medicine & Rehab/PM&R Diagnoses Paraplegia (HCC) History of lumbar fusion Vaishali Pierre DO [address] [place] [address] [facility] [address] [place] [address] Referral ID Status Reason Start Date Expiration Date V isits Requested Visits Authorized [id number] Pending Review 02/10/2024 02/09/2025 1 1 Reason Onset Date Comments Reschedule 06/15/2024 Specialty Diagnoses / Procedures Referred By Contac t Referred To Contact Radiology Diagnoses Sacral insufficiency fracture, initial encounter Procedures MR T-SPINE W/O Otis Mejia MD [address] [place] [address] [facility] [address] [place], [place] [id number] Referral ID Status Reason Start Date Expiration Date Visits Re quested Visits Authorized [id number] Closed 05/11/2024 05/11/2025 1 1 Reason Comments Evaluation Follow up Reason Comments Osteoporosis Reason Onset Date Comments Appointment 10/25/2024 Reason Onset Date Comments Hospital F/U 02/19/2025 Reason Onset Date Comments Other 03/07/2025 Reason Comments Evaluation Reason Comments Nephrolithiasis Reason Comments Wound Check Sacrum / left ischiu m Reason Comments Wound Infection Per EMS pt was sent here from the [place] for wound infections. Pt has two wound on his sacrum - one at the top of sacrum and one at the bottom of the buttocks. Denies any fever/ CP/FEVER/ SOB. Pt is paralysis. Specialty Diagnoses / Procedures Referred By Contac t Referred To Contact Diagnoses Other acute osteomyelitis, other site (HCC) Procedures m86.18 Georgette Bueno MD [address] [place] [address] Phone: tel: fax: [facility] [address] [place] [phone] Phone: tel: Referral ID Status Reason Start Date Expiration Date Visits Re quested Visits Authorized [id number] 1 1 Ordered Prescriptions (unrec ognized section and content) Prescription Sig Dispensed Refills Start Date End Da te diazePAM (VALIUM) 5 MG tabletIndications:Muscle spasm Take 1 tablet by mouth every 6 hours as needed (muscle spasma) for up to 5 days. 20 tablet 0 10/25/2020 10/30/2020 Source Comments (unrecognize d section and content) In the event this informatio n is protected by the Federal Confidentiality of Alcohol and Drug Abuse Patient Records regulations: The Federal rules restrict any use of the information to criminally investigate or prosecute any alcohol or drug abuse patient.[facility] the event this information is protected by the Federal Confidentiality of Alcohol and Drug Abuse Patient Records regulations: The Federal rules restrict any use of the information to criminally investigate or prosecute any alcohol or drug abuse patient.[facility] Hospital[facility] the event this information is protected by the Federal Confidentiality of Alcohol and Drug Abuse Patient Records regulations: The Federal rules restrict any use of the information to criminally investigate or prosecute any alcohol or drug abuse patient.[facility] Hospital[facility] the event this information is protected by the Federal Confidentiality of Alcohol and Drug Abuse Patient Records regulations: The Federal rules restrict any use of the information to criminally investigate or prosecute any alcohol or drug abuse patient.[facility] Hospital[facility] the event this information is protected by the Federal Confidentiality of Alcohol and Drug Abuse Patient Records regulations: The Federal rules restrict any use of the information to criminally investigate or prosecute any alcohol or drug abuse patient.[facility] Hospital[facility] the event this information is protected by the Federal Confidentiality of Alcohol and Drug Abuse Patient Records regulations: The Federal rules restrict any use of the information to criminally investigate or prosecute any alcohol or drug abuse patient.[facility] Hospital[facility] the event this information is protected by the Federal Confidentiality of Alcohol and Drug Abuse Patient Records regulations: The Federal rules restrict any use of the information to criminally investigate or prosecute any alcohol or drug abuse patient.[facility] Hospital[facility] the event this information is protected by the Federal Confidentiality of Alcohol and Drug Abuse Patient Records regulations: The Federal rules restrict any use of the information to criminally investigate or prosecute any alcohol or drug abuse patient.[facility] Care Teams (unrecognized sec tion and content) Set Making Machine Operator Relationship Specialty Start Date End Date Ambrosio Monroy DO [address] [place] [address] PCP - General Family Practice 05/21/17 Penny Cameron MD [address] [address] Consulting General Surgery 01/17/21 Gayle Scott MD [address] [place] [phone] Consulting Infectious Diseases 12/03/21 Ambrosio Monroy DO [address] [place] [address] Home Care Physician Internal Medicine 12/03/21 Set Making Machine Operator Relationship Specialty Start Date End Date Ambrosio Monroy DO [address] [place] [address] PCP - General Family Practice 05/21/17 Penny Cameron MD [address] [address] Consulting General Surgery 01/17/21 Gayle Scott MD [address] [place] [address] Consulting Infectious Diseases 12/03/21 Ambrosio Monroy DO [address] [place] [address] Home Care Physician Internal Medicine 12/03/21 Set Making Machine Operator Relationship Specialty Start Date End Date Ambrosio Monroy DO [address] [place] [address] PCP - General Family Practice 05/21/17 Penny Cameron MD [address] [address] Consulting General Surgery 01/17/21 Gayle Scott MD [address] [place] [address] Consulting Infectious Diseases 12/03/21 Ambrosio Monroy DO [address] [place] [address] Home Care Physician Internal Medicine 12/03/21 Team Status: Active Member Role Status Dates Dr. Ambrosio Monroy , DO Primary Care Provider Active Team Status: Inactive Member Role Status Dates Dr. Ambrosio Monroy DO Primary Care Provider Active Tab MURO Attending Provider Active Team Status: Active Member Role Status Dates Dr. Ambrosio Monroy DO Primary Care Provider Active Tab MURO Attending Provider Active Set Making Machine Operator Relationship Specialty Start Date End Date Ambrosio Monroy DO [address] [place] [address] PCP - General 06/07/17 Team Status: Inactive Member Role Status Dates Dr. Ambrosio Monroy DO Primary Care Provider Active Tab MURO Attending Provider, Referring Provi krish Active Set Making Machine Operator Relationship Specialty Start Date End Date Ambrosio Monroy DO [address] [place] [address] PCP - General 06/07/17 Set Making Machine Operator Relationship Specialty Start Date End Date ErinAmbrosio lynchDO [address] [place] [address] PCP - General 06/07/17 Set Making Machine Operator Relationship Specialty Start Date End Date Erinsyed Ambrosio AyalaDO [address] [place] [address] PCP - General 06/07/17 Set Making Machine Operator Relationship Specialty Start Date End Date Yudith Monroybam AyalaDO [address] [place] [address] PCP - General 06/07/17 Set Making Machine Operator Relationship Specialty Start Date End Date Vaishali Pierre DO [address] [place], [place] [id number] Physician Physical Medicine & Rehab/PM&R 03/05/24 Set Making Machine Operator Relationship Specialty Start Date End Date ErinAmbrosio lynchDO [address] [place] [address] PCP - General 06/07/17 Set Making Machine Operator Relationship Specialty Start Date End Date Ambrosio Monroy JamieDO [address] [place] [address] PCP - General 06/07/17 Set Making Machine Operator Relationship Specialty Start Date End Date Ambrosio Monroy JamieDO [address] [place] [address] PCP - General 06/07/17 Set Making Machine Operator Relationship Specialty Start Date End Date Vaishali Pierre DO [address] [place] [address] Physician Physical Medicine & Rehab/PM&R 03/05/24 Set Making Machine Operator Relationship Specialty Start Date End Date Ambrosio Monroy DO [address] [place] [address] PCP - General 06/07/17 Joan Patel MD [address] [facility] [address] [place] [address] Surgeon Urology 05/05/24 Set Making Machine Operator Relationship Specialty Start Date End Date Ambrosio Monroy DO [address] [place] [address] PCP - General 06/07/17 Joan Patel MD [address] [facility] [address] [place] [address] Surgeon Urology 05/05/24 Set Making Machine Operator Relationship Specialty Start Date End Date Macrina PierreedDO [address] [place] [address] Physician Physical Medicine & Rehab/PM&R 03/05/24 Set Making Machine Operator Relationship Specialty Start Date End Date Vaishali Pierre DO [address] [place] [address] Physician Physical Medicine & Rehab/PM&R 03/05/24 Set Making Machine Operator Relationship Specialty Start Date End Date Ambrosio Monroy DO [address] [place] [address] PCP - General 06/07/17 Joan Patel MD [address] [facility] [address] [place] [address] Surgeon Urology 05/05/24 Set Making Machine Operator Relationship Specialty Start Date End Date Vaishali Pierre DO [address] [place] [address] Physician Physical Medicine & Rehab/PM&R 03/05/24 Set Making Machine Operator Relationship Specialty Start Date End Date Ambrosio Monroy DO [address] [facility] [address] [place] [address] PCP - General 06/07/17 05/18/24 Tab Dupont [address] [place] [phone] PCP - General Internal Medicine 05/19/24 Joan Patel MD [address] [facility] [address] [place] [address] Surgeon Urology 05/05/24 Set Making Machine Operator Relationship Specialty Start Date End Date Ambrosio Monroy DO [address] [facility] [address] [place] [address] PCP - General 06/07/17 05/18/24 Set Making Machine Operator Relationship Specialty Start Date End Date Vaishali Pierre DO [address] [place] [address] Physician Physical Medicine & Rehab/PM&R 03/05/24 Otis Mejia MD [address] [place] [address] Physician Orthopaedic Surgery 06/11/24 Set Making Machine Operator Relationship Specialty Start Date End Date Macrina PierreedDO [address] [place] [address] Physician Physical Medicine & Rehab/PM&R 03/05/24 Otis Mejia MD [address] [place] [address] Physician Orthopaedic Surgery 06/11/24 Set Making Machine Operator Relationship Specialty Start Date End Date Tab Dupont [address] [place] [phone] PCP - General Internal Medicine 05/19/24 Joan Patel MD [address] [place] [id number] Surgeon Urology 05/05/24 Set Making Machine Operator Relationship Specialty Start Date End Date Macrina PierreedDO [address] [place] [address] Physician Physical Medicine & Rehab/PM&R 03/05/24 Otis Mejia MD [address] [place] [address] Physician Orthopaedic Surgery 06/11/24 Set Making Machine Operator Relationship Specialty Start Date End Date Macrina PierreedDO [address] [place] [address] Physician Physical Medicine & Rehab/PM&R 03/05/24 Otis Mejia MD [address] [place] [address] Physician Orthopaedic Surgery 06/11/24 Set Making Machine Operator Relationship Specialty Start Date End Date Vaishali Pierre DO [address] [place] [address] Physician Physical Medicine & Rehab/PM&R 03/05/24 Otis Mejia MD [address] [place] [address] Physician Orthopaedic Surgery 06/11/24 Set Making Machine Operator Relationship Specialty Start Date End Date Vaishali Pierre DO [address] [place] [address] Physician Physical Medicine & Rehab/PM&R 03/05/24 Otis Mejia MD [address] [place] [address] Physician Orthopaedic Surgery 06/11/24 Set Making Machine Operator Relationship Specialty Start Date End Date Vaishali Pierre DO [address] [place] [address] Physician Physical Medicine & Rehab/PM&R 03/05/24 Otis Mejia MD [address] [place] [address] Physician Orthopaedic Surgery 06/11/24 Set Making Machine Operator Relationship Specialty Start Date End Date Vaishali Pierre DO [address] [place] [address] Physician Physical Medicine & Rehab/PM&R 03/05/24 Otis Mejia MD [address] [place] [address] Physician Orthopaedic Surgery 06/11/24 Set Making Machine Operator Relationship Specialty Start Date End Date ElysiaVaishali santillan [address] [place] [address] Physician Physical Medicine & Rehab/PM&R 03/05/24 Otis Mejia MD [address] [place] [address] Physician Orthopaedic Surgery 06/11/24 Giuliano Shultz DO [address] [place] [address] Physician Rheumatology 09/10/24 Faisal Simeon DO [address] [place] [address] Physician Physical Medicine & Rehab/PM&R 09/30/24 Set Making Machine Operator Relationship Specialty Start Date End Date Tab Dupont [address] [place] [address] PCP - General Internal Medicine 05/19/24 Joan Patel MD 201 [facility] 3 [place] [address] Surgeon Urology 05/05/24 Team Status: Inactive Member Role Status Dates Dr. Ambrosio Monroy DO Primary Care Provider Active Start: September 20, 2024 End: September 20, 2024 Tab MURO Attending Provider Active Sta rt: September 20, 2024 End: September 20, 2024 Team Status: Inactive Member Role Status Dates Dr. Ambrosio Monroy DO Primary Care Provider Active Start: September 29, 2024 End: September 29, 2024 Tab MURO Attending Provider Active Sta rt: September 29, 2024 End: September 29, 2024 Tab MURO Referring Provider Active Sta rt: September 29, 2024 End: September 29, 2024 Team Status: Inactive Member Role Status Dates Dr. Ambrosio Monroy DO Primary Care Provider Active Start: October 03, 2024 End: October 03, 2024 Tab MURO Attending Provider Active Sta rt: October 03, 2024 End: October 03, 2024 Team Status: Inactive Member Role Status Dates Dr. Ambrosio Monroy DO Primary Care Provider Active Start: October 10, 2024 End: October 10, 2024 Tab MURO Attending Provider Active Sta rt: October 10, 2024 End: October 10, 2024 Team Status: Inactive Member Role Status Dates Dr. Ambrosio Monroy DO Primary Care Provider Active Start: November 29, 2024 End: November 29, 2024 Dr. Daisy MURO MD Attending Provider Active Start: November 29, 2024 End: November 29, 2024 Dr. Daisy MURO MD Referring Provider Active Start: November 29, 2024 End: November 29, 2024 Team Status: Active Member Role Status Dates Dr. Ambrosio Monroy DO Primary Care Provider Active Start: November 30, 2024 Tab MURO Attending Provider Active Sta rt: November 30, 2024 Team Status: Active Member Role Status Dates Dr. Ambrosio Monroy DO Primary Care Provider Active Start: December 07, 2024 Tab MURO Attending Provider Active Sta rt: December 07, 2024 Team Status: Inactive Member Role Status Dates Dr. Ambrosio Monroy DO Primary Care Provider Active Start: November 30, 2024 End: November 30, 2024 Tab MURO Attending Provider Active Sta rt: November 30, 2024 End: November 30, 2024 Team Status: Inactive Member Role Status Dates Dr. Ambrosio Monroy DO Primary Care Provider Active Start: December 07, 2024 End: December 07, 2024 Tab MURO Attending Provider Active Sta rt: December 07, 2024 End: December 07, 2024 Set Making Machine Operator Relationship Specialty Start Date End Date Penny Cameron MD [address] [address] Consulting General Surgery 01/17/21 Gayle Scott MD [address] [facility] [address] [place] [phone] Consulting Infectious Diseases 12/03/21 Ambrosio Monroy MD [address] [place], [place] [address] Home Care Provider Internal Medicine 12/03/21 Set Making Machine Operator Relationship Specialty Start Date End Date Tab Dupont [address] [place] [phone] PCP - General Internal Medicine 05/19/24 Joan Patel MD [address] [place] [address] Surgeon Urology 05/05/24 Set Making Machine Operator Relationship Specialty Start Date End Date Penny Cameron MD [address] [address] Consulting General Surgery 01/17/21 Gayle Scott MD [address] [phone] Consulting Infectious Diseases 12/03/21 Ambrosio Monroy MD [address] [place] [address] Home Care Provider Internal Medicine 12/03/21 Set Making Machine Operator Relationship Specialty Start Date End Date Penny Cameron MD [address] [address] Consulting General Surgery 01/17/21 Gayle Scott MD [address] [facility] [address] [place] [phone] Consulting Infectious Diseases 12/03/21 Ambrosio Monroy MD [facility] [address] [place] [address] Home Care Provider Internal Medicine 12/03/21 Set Making Machine Operator Relationship Specialty Start Date End Date Tab Dupont [address] [place] [phone] PCP - General Internal Medicine 05/19/24 Joan Patel MD [address] [address] Surgeon Urology 05/05/24 Set Making Machine Operator Relationship Specialty Start Date End Date Tab Dupont [address] [place] [phone] PCP - General Internal Medicine 05/19/24 Joan Patel MD [address] [address] Surgeon Urology 05/05/24 Set Making Machine Operator Relationship Specialty Start Date End Date Tab Dupont [address] [place] [phone] PCP - General Internal Medicine 05/19/24 Joan Patel MD [address] [address] Surgeon Urology 05/05/24 Set Making Machine Operator Relationship Specialty Start Date End Date Vaishali Pierre DO [address] [place] [address] Physician Physical Medicine & Rehab/PM&R 03/05/24 Otis Mejia MD [address] [place] [address] Physician Orthopaedic Surgery 06/11/24 Giuliano Shultz DO [address] [place] [address] Physician Rheumatology 09/10/24 Faisal Simeon DO [address] [place] [address] Physician Physical Medicine & Rehab/PM&R 09/30/24 Team Status: Inactive Member Role Status Dates Dr. Ambrosio Monroy DO Primary Care Provider Active Start: January 09, 2025 End: January 09, 2025 Tab MURO Attending Provider Active Sta rt: January 09, 2025 End: January 09, 2025 Team Status: Inactive Member Role Status Dates Dr. Ambrosio Monroy DO Primary Care Provider Active Start: February 15, 2025 End: February 15, 2025 Tab MURO Attending Provider Active Sta rt: February 15, 2025 End: February 15, 2025 Team Status: Inactive Member Role Status Dates Dr. Ambrosio Monroy DO Primary Care Provider Active Start: March 01, 2025 End: March 01, 2025 Tab MURO Attending Provider Active Sta rt: March 01, 2025 End: March 01, 2025 Set Making Machine Operator Relationship Specialty Start Date End Date Tab Dupont [address] [place] [address] PCP - General Internal Medicine 05/19/24 Joan Patel MD 201 [facility] 3 [place] [address] Surgeon Urology 05/05/24 Team Status: Active Member Role Status Dates Dr. Ambrosio Monroy , Primary Care Provider Active Start: March 01, 2025 Tab MURO Attending Provider Active Sta rt: March 01, 2025 Set Making Machine Operator Relationship Specialty Start Date End Date Tab Dupont [address] [place] [phone] PCP - General Internal Medicine 05/19/24 Joan Patel MD [address] [place] [address] 3 [place] [address] Surgeon Urology 05/05/24 Set Making Machine Operator Relationship Specialty Start Date End Date Penny Cameron MD [address] [address] Consulting General Surgery 01/17/21 Gayle Scott MD [address] [place] [phone] Consulting Infectious Diseases 12/03/21 Ambrosio Monroy MD [address] [facility] [address] [place] [address] Home Care Provider Internal Medicine 12/03/21 Set Making Machine Operator Relationship Specialty Start Date End Date Tab Dupont MD [address] [facility] [address] [place] [address] PCP - General Internal Medicine 03/20/25 Penny Cameron MD [address] [address] Consulting General Surgery 01/17/21 Gayle Scott MD [address] [place] [phone] Consulting Infectious Diseases 12/03/21 Ambrosio Monroy MD [address] [facility] [address] [place] [address] Home Care Provider Internal Medicine 12/03/21 Set Making Machine Operator Relationship Specialty Start Date End Date Tab Dupont [address] [place] [phone] PCP - General Internal Medicine 05/19/24 Joan Patel MD 201 [facility] 3 [place] [address] Surgeon Urology 05/05/24 Goals (unrecognized section and content) Goals may be documented in a n alternate sectionGoals may be documented in an alternate sectionGoals may be documented in an alternate sectionGoals may be documented in an alternate sectionGoals may be documented in an alternate sectionGoals may be documented in an alternate sectionGoals may be documented in an alternate sectionGoals may be documented in an alternate sectionGoals may be documented in an alternate sectionGoals may be documented in an alternate sectionGoals may be documented in an alternate sectionGoals may be documented in an alternate sectionGoals may be documented in an alternate section Scheduled Active and Recently Administ ered Medications (unrecognized section and content) Medication Order 05/21/2023 05/22/2023 05/23/2023 cephalexin (Keflex) capsule 500 mg 500 mg, Oral, Once, On 05/23/23 at 0845, For 1 dose, Suspected Indication (Select all that apply): Urinary Tract Infection 0845 (Canceled Entry - Provider: Automatic Discharge Provider - Comment: Automatically canceled at discontinue of medication order) Scheduled Medication Order 04/18/2024 04/19/2024 04/20/2024 docusate (Colace) 50 MG/5ML liquid 50 mg 50 mg, Oral, 2 times daily, First dose on Thu04/15/24 at 0900 0900 (Not Given - Provider: Allie Griffin RN - Reason: Patient/family refused)2100 (Not Given - Provider: Marino Trevizo RN - Reason: Patient/family refused - Comment: client stated he had a large bowel movement a few hours ago) 0900 (Not Given - Provider: Allie Griffin RN - Reason: Patient/family refused)2100 (Not Given - Provider: Erika Li RN - Reason: Patient/family refused) 09 (Not Given - Provider: Faby Maxwell RN - Reason: Patient/family refused) enoxaparin (Lovenox) syringe 40 mg 40 mg, SubCUTAneous, Every 24 hours scheduled (Daily), First dose on Thu04/15/24 at 0900, Indication of Use: Prophylaxis-DVT/PE, Indications: Prophylaxis of Venous Thromboembolism, On hold since Thu04/16/2024 at 0816 until manually unheld 899 (Dose Auto Held - Provider: Pedro Luis Matos MD) 899 (Dose Auto Held - Provider: Pedro Luis Matos MD) 899 (Dose Auto Held - Provider: Pedro Luis Matos MD)2021 (Unheld by provider - Provider: Automatic Discharge Provider) ertapenem (INVanz) 1,000 mg in sodium chloride 0.9 % 50 mL IVPB Mini-Bag Plus 1,000 mg, IntraVENous, at 100 mL/hr, Administer over 30 Minutes, Every 24 hours, First dose on Thu04/20/24 at 1000, Mini-Bag Plus bag, Suspected Indication (Select all that apply): Bloodstream Infection 1102 (New Bag - Provider: Faby Maxwell, LIBRADO)1132 (Stopped - Provider: Faby Maxwell, LIBRADO) ferrous sulfate tablet 325 mg 325 mg, Oral, Daily with breakfast, First dose on Thu04/15/24 at 0800 0832 (Given - Provider: Allie Griffin RN) 0828 (Given - Provider: Allie Griffin RN) 09 (Given - Provider: Faby Maxwell, LIBRADO) fluconazole in NS (Diflucan) IVPB 400 mg (CANCELED) 400 mg, IntraVENous, at 100 mL/hr, Administer over 120 Minutes, Every 24 hours, First dose on Thu04/14/24 at 2300, premix bag, Coverage: Fungal NOS, 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, Infection Site: Urinary Tract 0114 (Stopped - Provider: Jacki Middleton RN)230 (New Bag - Provider: Marino Trevizo RN) 010 (Stopped - Provider: Marino Trevizo RN) insulin glargine (Lantus) injection 45 Units 45 Units, SubCUTAneous, Nightly, First dose (after last modification) on Thu04/15/24 at 2030 2106 (Given - Provider: Marino Trevizo, LIBRADO) 2027 (Given - Provider: Erika Li RN) Insulin Lispro (Humalog) injection 0-12 Units(Linked Group 1) 0-12 Units, SubCUTAneous, 3 times daily with meals, First dose on 04/16/24 at 0830, Medium Dose Correction Algorithm Glucose: Dose: LESS than 139 No Insulin 140-199 2 Unit 200-249 4 Units 250-299 6 Units 300-349 8 Units 350-400 10 Units Above 400 12 Units 0800 (Not Given - Provider: Allie Griffin RN - Reason: Order parameters not met)1142 (Given - Provider: Allie Griffin RN)1700 (Not Given - Provider: Allie Griffin RN - Reason: Order parameters not met) 0828 (Given - Provider: Allie Griffin RN)1220 (Given - Provider: Allie Griffin RN)1648 (Given - Provider: Allie Griffin RN) 0904 (Given - Provider: Faby Maxwell, LIBRADO)1258 (Given - Provider: Faby Maxwell, LIBRADO)1747 (Given - Provider: Faby Maxwell, LIBRADO) Insulin Lispro (Humalog) injection 0-12 Units(Linked Group 1) 0-12 Units, SubCUTAneous, Nightly, First dose on 04/16/24 at 2100, If continuous tube feedings/TPN/NPO, give correction dose based on result, no reduction in dose. If eating or bolus tube feeding: Medium Dose Correction Algorithm Glucose: Dose: LESS than 139 No Insulin 140-199 2 Unit 200-249 4 Units 250-299 6 Units 300-349 8 Units 350-400 10 Units Above 400 12 Units 210 (Given - Provider: Marino Trevizo RN) 2027 (Given - Provider: Erika Li, RN) linaGLIPtin (Tradjenta) tablet 5 mg 5 mg, Oral, Daily, First dose on Thu04/15/24 at 0900, Substituted for alogliptin (NESINA). 0832 (Given - Provider: Allie Griffin RN) 0828 (Given - Provider: Allie Griffin RN) 0904 (Given - Provider: Faby Maxwell RN) magnesium sulfate in D5W IVPB 1,000 mg (COMPLETED) 1,000 mg, IntraVENous, at 100 mL/hr, Administer over 1 Hours, Once, On Thu04/18/24 at 1230, For 1 dose, Recommended infusion rate not to exceed 1,000 mg (milligrams) per hour. 1525 (New Bag - Provider: Allie Griffin RN)1625 (Stopped - Provider: Allie Griffin RN) meropenem (Merrem) 2,000 mg in sodium chloride 0.9 % 100 mL IVPB (CANCELED) 2,000 mg, IntraVENous, at 33.3 mL/hr, Administer over 180 Minutes, Every 8 hours, First dose on Thu04/16/24 at 1730, Meropenem Med-Surg/Crit Care Init Dosing HARINDER 8, Make Up Girl cl >=50, 3h Mini-Bag Plus bag, Suspected Indication (Select all that apply): Bloodstream Infection 0130 (Not Given - Provider: Jacki Middleton RN - Reason: Loss of IV access)1141 (New Bag - Provider: Allie Griffin RN)1517 (Stopped - Provider: Allie Griffin RN)1715 (New Bag - Provider: Allie Griffin RN)2030 (Stopped - Provider: Marino Trevizo RN) 0111 (New Bag - Provider: Marino Trevizo RN)0411 (Stopped - Provider: Marino Trevizo RN)0921 (New Bag - Provider: Allie Griffin RN)1221 (Stopped - Provider: Allie Griffin RN)1648 (New Bag - Provider: Allie Griffin RN)1948 (Stopped - Provider: Erika Li RN) 0036 (New Bag - Provider: Erika Li RN)0336 (Stopped - Provider: Erika Li RN) mirtazapine (Remeron) tablet 7.5 mg 7.5 mg, Oral, Nightly, First dose on Thu04/14/24 at 2245 2106 (Given - Provider: Marino Trevizo RN) 2027 (Given - Provider: Erika Li RN) polyethylene glycol (PEG) 3350 (Miralax) packet 17 g 17 g, Oral, Daily, First dose on Thu04/15/24 at 0900 0900 (Not Given - Provider: Allie Griffin RN - Reason: Patient/family refused) 0900 (Not Given - Provider: Allie Griffin RN - Reason: Patient/family refused) 09 (Not Given - Provider: Faby Maxwell RN - Reason: Patient/family refused) potassium chloride CR (Klor-Con M10) ER tablet 40 mEq (COMPLETED) 40 mEq, Oral, Once, On Thu04/18/24 at 1230, For 1 dose, Best given with food and plenty of water to minimize gastric irritation. Do not crush or chew. 1526 (Given - Provider: Allie Griffin RN) pregabalin (Lyrica) capsule 200 mg 200 mg, Oral, 3 times daily, First dose on Thu04/14/24 at 2245 0832 (Given - Provider: Allie Griffin RN)1525 (Given - Provider: Allie Griffin RN)2106 (Given - Provider: Marino Trevizo, LIBRADO) 0828 (Given - Provider: Allie Griffin, LIBRADO)1620 (Given - Provider: Allie Griffin RN)2027 (Given - Provider: Erika Li RN) 0904 (Given - Provider: Faby Maxwell, LIBRADO)1300 (Given - Provider: Faby Maxwell, LIBRADO) sodium chloride 0.9% (NS) flush 10 mL 10 mL, IntraVENous, Every 12 hours scheduled (2 times per day), First dose on Thu04/14/24 at 2245 0834 (Given - Provider: Allie Griffin RN)2112 (Given - Provider: Marino Trevizo, LIBRADO) 0921 (Given - Provider: Allie Griffin RN)2100 (Given - Provider: Erika Li RN) 0905 (Given - Provider: Faby Maxwell, LIBRADO) tamsulosin (Flomax) 24 hr capsule 0.4 mg 0.4 mg, Oral, Daily, First dose on Thu04/15/24 at 0900, Do not crush, chew, or split. 0832 (Given - Provider: Allie Griffin RN) 0828 (Given - Provider: Allie Griffin RN) 09 (Given - Provider: Faby Maxwell, LIBRADO) PRN Medication Order 04/18/2024 04/19/2024 04/20/2024 acetaminophen (Tylenol) suppository 650 mg(Linked Group 2) 650 mg, Rectal, Every 6 hours PRN, mild pain (1-3), fever, For temp greater than 100.4 F (38 C), Starting on Thu04/14/24 at 2240, Administer if oral route cannot be used. Maximum dose of acetaminophen is 4000 mg from all sources in 24 hours. acetaminophen (Tylenol) tablet 650 mg(Linked Group 2) 650 mg, Oral, Every 6 hours PRN, mild pain (1-3), fever, For temp greater than 100.4 F (38 C), Starting on Fabiola 04/14/24 at 2240, Maximum dose of acetaminophen is 4000 mg from all sources in 24 hours. cyclobenzaprine (Flexeril) tablet 10 mg 10 mg, Oral, 3 times daily PRN, muscle spasms, Starting on Thu04/14/24 at 2240 dextrose 5 % infusion 100 mL/hr, IntraVENous, PRN, Blood sugar less than 70mg/dL, Starting on Thu04/14/24 at 2240, Start infusion following administration of dextrose 50% or glucagon. dextrose 50 % solution 12.5 g 12.5 g, IntraVENous, PRN, low blood sugar, Blood glucose less than 70 mg/dL and patient NOT ALERT or NPO., Starting on Fabiola 04/14/24 at 2240, If patient does not respond within 5 minutes, repeat dose x1. Start D5W at 100 mL/hour until ordering provider can be reached. Repeat blood glucose in 15 minutes. If blood glucose is less than 70 mg/dL, repeat treatment and recheck blood glucose in 15 minutes x2. If using Glucostabilizer, dose as instructed per system. glucagon (human recombinant) injection 1 mg 1 mg, IntraMUSCular, PRN, low blood sugar, Blood glucose less than 70 mg/dL and patient NOT ALERT or NPO and does not have IV access., Starting on Thu04/14/24 at 2240, After administration, attempt intravenous access and start D5W at 100 mL/hr. Repeat blood glucose in 15 minutes x2 and notify provider. glucose oral gel 15 g 15 g, Oral, As needed, low blood sugar, Starting on Thu04/14/24 at 2240, If blood glucose less than 50 mg/dL and patient ALERT and NOT NPO, give 2 tubes glucose gel. If blood glucose less than 70 mg/dL and patient ALERT and NOT NPO, give 1 tube glucose gel. Repeat blood glucose in 15 minutes. If blood glucose is less than 70 mg/dL, repeat treatment and recheck blood glucose in 15 minutes x2 and notify provider. HYDROmorphone (Dilaudid) injection 1 mg 1 mg, IntraVENous, Every 4 hours PRN, moderate pain (4-6), Starting on Thu04/14/24 at 2011, If oral and IV narcotics ordered, use oral first and only use IV if oral is ineffective or cannot take oral. Do Not give oral and IV within 1 hour of each other unless specifically ordered. lidocaine PF (Xylocaine) 1 % injection (COMPLETED) As needed, Starting on Thu04/20/24 at 0955, Intraprocedure 0955 (Given - Provider: Marie Howard PA-C) naloxone (Narcan) injection 0.4 mg 0.4 mg, IntraVENous, Every 5 min PRN, opioid reversal, respiratory depression, Starting on Thu04/14/24 at 2017, +++ For RR <10, pinpoint pupils, over sedation for opioid reversal - MUST notify professor of environmental studies provider immediately after first dose, may give IM or SQ if no IV access +++ ondansetron (Zofran) injection 4 mg(Linked Group 3) 4 mg, IntraVENous, Every 6 hours PRN, nausea, vomiting, Starting on Thu04/14/24 at 2240, 1st Line. Give IV if patient is unable to take orally. If inadequate response within 60 minutes, proceed to next-line agent or contact provider if no further options ordered. ondansetron ODT (Zofran-ODT) disintegrating tablet 4 mg(Linked Group 3) 4 mg, Oral, Every 8 hours PRN, nausea, vomiting, Starting on Fabiola 04/14/24 at 2240, 1st Line. If inadequate response within 60 minutes, proceed to next-line agent or contact provider if no further options ordered. Patient should allow tablet to dissolve on tongue. Do not remove from blister pack until just before administering. oxyCODONE (Roxicodone) immediate release tablet 15 mg 15 mg, Oral, 4 times daily PRN, chronic pain, Starting on Thu04/14/24 at 2240 0831 (Given - Provider: Allie Griffin RN)1526 (Given - Provider: Allie Griffin, RN) 1619 (Given - Provider: Allie Griffin, RN)2028 (Given - Provider: Erika Li, LIBRADO) 0405 (Given - Provider: Erika Li RN) sodium chloride 0.9 % infusion 5-250 mL/hr, IntraVENous, PRN, if patient receiving piggyback infusions and maintenance fluids are not ordered OR KVO fluids to protect IV site / prevent frequent line interruptions/ long duration, Starting on Thu04/14/24 at 2240, For piggyback infusion, administer at same rate as piggyback for a total of 25 mL. Enter 25 mL into dose field and piggyback rate into rate field of order. If piggyback is infusing at a rate less than 100 mL/hr, enter 25 mL into dose field and 100 mL/hr into rate field of order. For KVO fluids, enter rate of 20 mL/hr or less into rate field of order. sodium chloride 0.9% (NS) flush 10 mL 10 mL, IntraVENous, PRN, line care, Starting on Thu04/14/24 at 2240, After every IV line use Linked Groups Order Group 1: Insulin Lispro (Humalog) injection 0-12 UnitsJump to med 0-12 Units, SubCUTAneous, 3 times daily with meals, First dose on Thu04/16/24 at 0830, Medium Dose Correction Algorithm Glucose: Dose: LESS than 139 No Insulin 140-199 2 Unit 200-249 4 Units 250-299 6 Units 300-349 8 Units 350-400 10 Units Above 400 12 Units And Insulin Lispro (Humalog) injection 0-12 UnitsJump to med 0-12 Units, SubCUTAneous, Nightly, First dose on 04/16/24 at 2100, If continuous tube feedings/TPN/NPO, give correction dose based on result, no reduction in dose. If eating or bolus tube feeding: Medium Dose Correction Algorithm Glucose: Dose: LESS than 139 No Insulin 140-199 2 Unit 200-249 4 Units 250-299 6 Units 300-349 8 Units 350-400 10 Units Above 400 12 Units Group 2: acetaminophen (Tylenol) tablet 650 mgJump to med 650 mg, Oral, Every 6 hours PRN, mild pain (1-3), fever, For temp greater than 100.4 F (38 C), Starting on Fabiola 04/14/24 at 2240, Maximum dose of acetaminophen is 4000 mg from all sources in 24 hours. Or acetaminophen (Tylenol) suppository 650 mgJump to med 650 mg, Rectal, Every 6 hours PRN, mild pain (1-3), fever, For temp greater than 100.4 F (38 C), Starting on Fabiola 04/14/24 at 2240, Administer if oral route cannot be used. Maximum dose of acetaminophen is 4000 mg from all sources in 24 hours. Group 3: ondansetron ODT (Zofran-ODT) disintegrating tablet 4 mgJump to med 4 mg, Oral, Every 8 hours PRN, nausea, vomiting, Starting on Fabiola 04/14/24 at 2240, 1st Line. If inadequate response within 60 minutes, proceed to next-line agent or contact provider if no further options ordered. Patient should allow tablet to dissolve on tongue. Do not remove from blister pack until just before administering. Or ondansetron (Zofran) injection 4 mgJump to med 4 mg, IntraVENous, Every 6 hours PRN, nausea, vomiting, Starting on Fabiola 04/14/24 at 2240, 1st Line. Give IV if patient is unable to take orally. If inadequate response within 60 minutes, proceed to next-line agent or contact provider if no further options ordered. Scheduled Medication Order 05/04/2024 05/05/2024 05/06/2024 acetaminophen (Tylenol) tablet 1,000 mg (COMPLETED) 1,000 mg, Oral, Once, On Fabiola 05/05/24 at 1115, For 1 dose, Preprocedure, Administer 60 minutes prior to surgery. 1115 (Given - Provider: Karlee Bell, LIBRADO) aspirin EC tablet 81 mg 81 mg, Oral, Daily, First dose on Fabiola 05/05/24 at 1700, Do not crush, chew, or split. 1909 (Given - Provider: Carmel Merritt RN) 0839 (Given - Provider: Bianca Rodgers, RN) ceFAZolin in dextrose 4% (Ancef) IVPB 2,000 mg (COMPLETED) 2,000 mg, IntraVENous, Administer over 30 Minutes, Mathematics Technician to O.R., On Thu05/05/24 at 1115, For 1 dose, Preprocedure, Administer 60 minutes prior to surgery. premix bag, Suspected Indication (Select all that apply): Surgical Prophylaxis 153 (Given - Provider: Jj Flores, THREAD SPOOLER) cefTRIAXone (Rocephin) 1,000 mg in sodium chloride 0.9 % 50 mL IVPB Mini-Bag Plus 1,000 mg, IntraVENous, at 100 mL/hr, Administer over 30 Minutes, Every 24 hours, First dose on Thu05/05/24 at 2300, Mini-Bag Plus bag, Suspected Indication (Select all that apply): Urinary Tract Infection 225 (New Bag - Provider: Rosemary Suggs, LIBRADO)2329 (Stopped - Provider: Rosemary Suggs RN) 2300 (Canceled Entry - Provider: Automatic Discharge Provider - Comment: Automatically canceled at discontinue of medication order) enoxaparin (Lovenox) syringe 40 mg 40 mg, SubCUTAneous, Every 24 hours scheduled (Daily), First dose on Thu05/05/24 at 1700, Indication of Use: Prophylaxis-DVT/PE, Indications: Prophylaxis of Venous Thromboembolism 1910 (Given - Provider: Carmel Merritt RN) 0839 (Given - Provider: Bianca Rodgers, LIBRADO) famotidine (Pepcid) tablet 20 mg (COMPLETED)(Linked Group 1) 20 mg, Oral, Once, On Thu05/05/24 at 1115, For 1 dose, Preprocedure, IV or Oral 1129 (Given - Provider: Karlee Bell, LIBRADO) insulin glargine (Lantus) injection 45 Units 45 Units, SubCUTAneous, Every morning, First dose on Thu05/06/24 at 0900 0839 (Given - Provid er: Bianca Rodgers RN) Insulin Lispro (Humalog) injection 0-18 Units(Linked Group 2) 0-18 Units, SubCUTAneous, 3 times daily with meals, First dose on Thu05/06/24 at 1200, High Dose Correction Algorithm Glucose: Dose: LESS than 139 No Insulin 140-199 3 Unit 200-249 6 Units 250-299 9 Units 300-349 12 Units 350-400 15 Units Above 400 18 Units 1201 (Given - Provid er: Bianca Rodgers RN)1808 (Given - Provider: Arlen Doherty RN) Insulin Lispro (Humalog) injection 0-18 Units(Linked Group 2) 0-18 Units, SubCUTAneous, Nightly, First dose on Thu05/06/24 at 2100, If continuous tube feedings/TPN/NPO, give correction dose based on result, no reduction in dose. If eating or bolus tube feeding: High Dose Correction Algorithm Glucose: Dose: LESS than 139 No Insulin 140-199 3 Unit 200-249 6 Units 250-299 9 Units 300-349 12 Units 350-400 15 Units Above 400 18 Units 2100 (Canceled Entry - Provider: Automatic Discharge Provider - Comment: Automatically canceled at discontinue of medication order) mirtazapine (Remeron) tablet 7.5 mg 7.5 mg, Oral, Nightly, First dose on Thu05/05/24 at 2100 2051 (Given - Provider: Rosemary Suggs RN) 2100 (Canceled Entry - Provider: Automatic Discharge Provider - Comment: Automatically canceled at discontinue of medication order) pregabalin (Lyrica) capsule 200 mg 200 mg, Oral, 3 times daily, First dose on Thu05/05/24 at 1900 1910 (Given - Provider: Carmel Merritt RN) 0839 (Given - Provider: Bianca Rodgers, LIBRADO)1415 (Given - Provider: Bianca Rodgers RN)2100 (Canceled Entry - Provider: Automatic Discharge Provider - Comment: Automatically canceled at discontinue of medication order) Continuous Medication Order 05/04/2024 05/05/2024 05/06/2024 lactated Ringer's (LR) infusion 50 mL/hr, IntraVENous, Continuous, Starting on Thu05/05/24 at 1115, Preprocedure, Upon admission to sameday - please start iv if patient does not have iv access. Use 500ml NS for patients on dialysis. 1130 (New Bag - Provider: Karlee Bell RN)1520 (Paused - Provider: Jj Flores CRNA - Comment: Switch to gravity)1521 (Restarted - Provider: Jj Flores CRNA)1640 (Anesthesia Volume Adjustment - Provider: Jj Flores CRNA) 0845 (New Bag - Provider: Bianca Rodgers RN) PRN Medication Order 05/04/2024 05/05/2024 05/06/2024 acetaminophen (Tylenol) suppository 650 mg(Linked Group 3) 650 mg, Rectal, Every 6 hours PRN, mild pain (1-3), fever, For temp greater than 100.4 F (38 C), Starting on Fabiola 05/05/24 at 1657, Administer if oral route cannot be used. Maximum dose of acetaminophen is 4000 mg from all sources in 24 hours. 1414 (See Alternativ e - Provider: Bianca Rodgers RN) acetaminophen (Tylenol) tablet 650 mg(Linked Group 3) 650 mg, Oral, Every 6 hours PRN, mild pain (1-3), fever, For temp greater than 100.4 F (38 C), Starting on Fabiola 05/05/24 at 1657, Maximum dose of acetaminophen is 4000 mg from all sources in 24 hours. 1414 (Given - Provid er: Bianca Rodgers RN) bisacodyl (Dulcolax) EC tablet 5 mg 5 mg, Oral, Daily PRN, constipation, Starting on Fabiola 05/05/24 at 1654, 2nd line for treatment of constipation. Do not give within 1 hour of antacids, milk, or dairy products. Do not crush, chew, or split. cyclobenzaprine (Flexeril) tablet 10 mg 10 mg, Oral, 3 times daily PRN, muscle spasms, Starting on Fabiola 05/05/24 at 1654 1414 (Given - Provid er: Bianca Rodgers RN) dextrose 5 % infusion 100 mL/hr, IntraVENous, PRN, Blood sugar less than 70mg/dL, Starting on Fabiola 05/05/24 at 1821, Start infusion following administration of dextrose 50% or glucagon. dextrose 50 % solution 12.5 g 12.5 g, IntraVENous, PRN, low blood sugar, Blood glucose less than 70 mg/dL and patient NOT ALERT or NPO., Starting on Thu05/05/24 at 1821, If patient does not respond within 5 minutes, repeat dose x1. Start D5W at 100 mL/hour until ordering provider can be reached. Repeat blood glucose in 15 minutes. If blood glucose is less than 70 mg/dL, repeat treatment and recheck blood glucose in 15 minutes x2. If using Glucostabilizer, dose as instructed per system. glucagon (human recombinant) injection 1 mg 1 mg, IntraMUSCular, PRN, low blood sugar, Blood glucose less than 70 mg/dL and patient NOT ALERT or NPO and does not have IV access., Starting on Thu05/05/24 at 1821, After administration, attempt intravenous access and start D5W at 100 mL/hr. Repeat blood glucose in 15 minutes x2 and notify provider. glucose oral gel 15 g 15 g, Oral, As needed, low blood sugar, Starting on Thu05/05/24 at 1821, If blood glucose less than 50 mg/dL and patient ALERT and NOT NPO, give 2 tubes glucose gel. If blood glucose less than 70 mg/dL and patient ALERT and NOT NPO, give 1 tube glucose gel. Repeat blood glucose in 15 minutes. If blood glucose is less than 70 mg/dL, repeat treatment and recheck blood glucose in 15 minutes x2 and notify provider. HYDROmorphone (Dilaudid) tablet 1 mg 1 mg, Oral, Every 4 hours PRN, severe pain (7-10), Starting on Thu05/05/24 at 1655 1910 (Given - Provider: Carmel Merritt, LIBRADO) Insulin Lispro (Humalog) injection 0-20 Units (CANCELED) 0-20 Units, SubCUTAneous, PRN, high blood sugar, Surgery Patient, Starting on Thu05/05/24 at 1103, For 3 doses, Preprocedure, Medium Dose Corrective Algorithm Glucose: Dose: 70-180 No Insulin 181-240 6 Unit 241-300 10 Units 301-350 12 Units 351-400 16 Units Over 400 20 Units and notify physician 1129 (Given - Provider: Karlee Bell RN) iopamidol (Isovue-300) 61 % injection (CANCELED) As needed, Starting on Fabiola 05/05/24 at 1631, Intraprocedure 1631 (Given - Provider: Joan Patel MD) naloxone (Narcan) injection 0.4 mg 0.4 mg, IntraVENous, Every 5 min PRN, opioid reversal, respiratory depression, Starting on Fabiola 05/05/24 at 1816, +++ For RR <10, pinpoint pupils, over sedation for opioid reversal - MUST notify professor of environmental studies provider immediately after first dose, may give IM or SQ if no IV access +++ ondansetron (Zofran) injection 4 mg(Linked Group 4) 4 mg, IntraVENous, Every 6 hours PRN, nausea, vomiting, Starting on Fabiola 05/05/24 at 1657, 1st Line. Give IV if patient is unable to take orally. If inadequate response within 60 minutes, proceed to next-line agent or contact provider if no further options ordered. ondansetron ODT (Zofran-ODT) disintegrating tablet 4 mg(Linked Group 4) 4 mg, Oral, Every 8 hours PRN, nausea, vomiting, Starting on Fabiola 05/05/24 at 1657, 1st Line. If inadequate response within 60 minutes, proceed to next-line agent or contact provider if no further options ordered. Patient should allow tablet to dissolve on tongue. Do not remove from blister pack until just before administering. oxyCODONE (Roxicodone) immediate release tablet 5 mg (COMPLETED)(Linked Group 5) 5 mg, Oral, PRN, moderate pain (4-6), Starting on Fabiola 05/05/24 at 1657, For 1 dose, Recovery (only), PHASE II 1746 (Given - Provider: Evelyne Mulligan RN) phenazopyridine (Pyridium) tablet 100 mg 100 mg, Oral, Every 6 hours PRN, bladder spasms, Pain, Starting on Fabiola 05/05/24 at 1658 polyethylene glycol (PEG) 3350 (Miralax) packet 17 g 17 g, Oral, Daily PRN, constipation, Starting on Fabiola 05/05/24 at 1657, 1st line for treatment of constipation - give scheduled if no bowel movement in past 24 hours. sodium chloride 0.9 % irrigation solution (CANCELED) As needed, Starting on Fabiola 8/1/24 at 1541, Intraprocedure 1541 (Given - Provider: Joan Patel MD) sterile water irrigation solution (CANCELED) As needed, Starting on Thu05/05/24 at 1538, Intraprocedure 1538 (Given - Provider: Joan Patel MD)1602 (Given - Provider: Joan Patel MD)1612 (Given - Provider: Joan Patel MD) stomahesive in petrolatum (ET Mix) Topical, PRN, dry skin, Starting on Thu05/06/24 at 0846, Buttucks Linked Groups Order Group 1: famotidine (Pepcid) tablet 20 mg (COMPLETED)Jump to med 20 mg, Oral, Once, On Thu05/05/24 at 1115, For 1 dose, Preprocedure, IV or Oral Or famotidine (Pepcid) 20 mg in sodium chloride (PF) 0.9 % 10 mL injection (COMPLETED) 20 mg, IntraVENous, Administer over 2 Minutes, Once, On Thu05/05/24 at 1115, For 1 dose, Preprocedure, IV or Oral Group 2: Insulin Lispro (Humalog) injection 0-18 UnitsJump to med 0-18 Units, SubCUTAneous, 3 times daily with meals, First dose on Thu05/06/24 at 1200, High Dose Correction Algorithm Glucose: Dose: LESS than 139 No Insulin 140- 199 3 Unit 200-249 6 Units 250-299 9 Units 300-349 12 Units 350-400 15 Units Above 400 18 Units And Insulin Lispro (Humalog) injection 0-18 UnitsJump to med 0-18 Units, SubCUTAneous, Nightly, First dose on Thu05/06/24 at 2100, If continuous tube feedings/TPN/NPO, give correction dose based on result, no reduction in dose. If eating or bolus tube feeding: High Dose Correction Algorithm Glucose: Dose: LESS than 139 No Insulin 140-199 3 Unit 200-249 6 Units 250-299 9 Units 300-349 12 Units 350-400 15 Units Above 400 18 Units Group 3: acetaminophen (Tylenol) tablet 650 mgJump to med 650 mg, Oral, Every 6 hours PRN, mild pain (1-3), fever, For temp greater than 100.4 F (38 C), Starting on Fabiola 05/05/24 at 1657, Maximum dose of acetaminophen is 4000 mg from all sources in 24 hours. Or acetaminophen (Tylenol) suppository 650 mgJump to med 650 mg, Rectal, Every 6 hours PRN, mild pain (1-3), fever, For temp greater than 100.4 F (38 C), Starting on Fabiola 05/05/24 at 1657, Administer if oral route cannot be used. Maximum dose of acetaminophen is 4000 mg from all sources in 24 hours. Group 4: ondansetron ODT (Zofran-ODT) disintegrating tablet 4 mgJump to med 4 mg, Oral, Every 8 hours PRN, nausea, vomiting, Starting on Fabiola 05/05/24 at 1657, 1st Line. If inadequate response within 60 minutes, proceed to next-line agent or contact provider if no further options ordered. Patient should allow tablet to dissolve on tongue. Do not remove from blister pack until just before administering. Or ondansetron (Zofran) injection 4 mgJump to med 4 mg, IntraVENous, Every 6 hours PRN, nausea, vomiting, Starting on Fabiola 05/05/24 at 1657, 1st Line. Give IV if patient is unable to take orally. If inadequate response within 60 minutes, proceed to next-line agent or contact provider if no further options ordered. Group 5: oxyCODONE (Roxicodone) immediate release tablet 5 mg (COMPLETED)Jump to med 5 mg, Oral, PRN, moderate pain (4-6), Starting on Fabiola 05/05/24 at 1657, For 1 dose, Recovery (only), PHASE II Or oxyCODONE (Roxicodone) immediate release tablet 10 mg (COMPLETED) 10 mg, Oral, PRN, severe pain (7-10), Starting on Fabiola 05/05/24 at 1657, For 1 dose, Recovery (only), PHASE II Scheduled Medication Order 05/20/2024 05/21/2024 05/22/2024 aspirin EC tablet 81 mg 81 mg, Oral, Daily, First dose on Thu05/18/24 at 0900, Do not crush, chew, or split. 0839 (Given - Provider: Dedrick Martin RN) 0837 (Given - Provider: Elly Cormier RN) 0812 (Given - Provider: Elly Cormier RN) cefepime (Maxipime) 2,000 mg in sodium chloride 0.9 % 50 mL IVPB Mini-Bag Plus (CANCELED) 2,000 mg, IntraVENous, at 12.5 mL/hr, Administer over 4 Hours, Every 8 hours, First dose on Thu05/18/24 at 2000, Mini-Bag Plus bag, Suspected Indication (Select all that apply): Urinary Tract Infection 0132 (Stopped - Provider: Kim Benz RN)0530 (New Bag - Provider: Kim Benz RN)0930 (Stopped - Provider: Dedrick Martin RN)1308 (New Bag - Provider: Dedrick Martin RN)1708 (Stopped - Provider: Dedrick Martin RN) docusate sodium (Colace) capsule 100 mg 100 mg, Oral, 2 times daily, First dose on Thu05/18/24 at 0900 0900 (Not Given - Provider: Dedrick Martin RN - Reason: Patient/family refused)204 (Not Given - Provider: Aleksandra Pinon RN - Reason: Patient/family refused) 0837 (Given - Provider: Elly Cormier RN)2110 (Given - Provider: Bev Carey RN) 0812 (Given - Provider: Elly Cormier RN)2100 (Canceled Entry - Provider: Automatic Discharge Provider - Comment: Automatically canceled at discontinue of medication order) enoxaparin (Lovenox) syringe 40 mg 40 mg, SubCUTAneous, Every 24 hours scheduled (Daily), First dose on Thu05/18/24 at 0900, Indication of Use: Prophylaxis-DVT/PE, Indications: Prophylaxis of Venous Thromboembolism 0838 (Given - Provider: Dedrick Martin RN) 0838 (Given - Provider: Elly Cormier RN) 0811 (Given - Provider: Elly Cormier RN) insulin glargine (Lantus) injection 45 Units 45 Units, SubCUTAneous, Every morning, First dose on Thu05/18/24 at 0900 0839 (Given - Provider: Dedrick Martin RN) 0838 (Given - Provider: Elly M Hrycyk, RN - Comment: [phone]) 0811 (Given - Provider: Elly Cormier RN - Comment: [phone]) Insulin Lispro (Humalog) injection 0-12 Units(Linked Group 1) 0-12 Units, SubCUTAneous, 3 times daily with meals, First dose on Thu05/18/24 at 0800, Medium Dose Correction Algorithm Glucose: Dose: LESS than 139 No Insulin 140-199 2 Unit 200-249 4 Units 250-299 6 Units 300-349 8 Units 350-400 10 Units Above 400 12 Units 0839 (Given - Provider: Dedrick Martin RN)1308 (Given - Provider: Dedrick Martin RN)1834 (Given - Provider: Dedrick Martin RN) 0837 (Given - Provider: Elly Cormier RN - Comment: [phone] (Given - Provider: Elly Cormier RN - Comment: [phone] (Given - Provider: Elly Cormier RN - Comment: [phone]) 0800 (Not Given - Provider: Elly Cormier RN - Reason: Order parameters not met - Comment: [phone] (Given - Provider: Elly Cormier RN - Comment: [phone] (Not Given - Provider: Elly Cormier RN - Reason: Other - Comment: Does not want dinner, returning to facility soon) Insulin Lispro (Humalog) injection 0-12 Units(Linked Group 1) 0-12 Units, SubCUTAneous, Nightly, First dose on Thu05/18/24 at 2100, If continuous tube feedings/TPN/NPO, give correction dose based on result, no reduction in dose. If eating or bolus tube feeding: Medium Dose Correction Algorithm Glucose: Dose: LESS than 139 No Insulin 140-199 2 Unit 200-249 4 Units 250-299 6 Units 300-349 8 Units 350-400 10 Units Above 400 12 Units 2045 (Given - Provider: Aleksandra Pinon RN) 2109 (Given - Provider: Bev Carey RN) 2099 (Canceled Entry - Provider: Automatic Discharge Provider - Comment: Automatically canceled at discontinue of medication order) mirtazapine (Remeron) tablet 7.5 mg 7.5 mg, Oral, Nightly, First dose on Thu05/18/24 at 2100 2046 (Given - Provider: Aleksandra Pinon, RN) 2110 (Given - Provider: Bev Carey, RN) 2100 (Canceled Entry - Provider: Automatic Discharge Provider - Comment: Automatically canceled at discontinue of medication order) oxyCODONE (Roxicodone) immediate release tablet 15 mg 15 mg, Oral, 4 times daily, First dose on Thu05/19/24 at 1700 0839 (Given - Provider: Dedrick Martin RN)1308 (Given - Provider: Dedrick Martin RN)1834 (Given - Provider: Dedrick Martin RN)2203 (Given - Provider: Aleksandra Pinon RN) 0837 (Given - Provider: Elly Cormier RN)1259 (Given - Provider: Elly Cormier RN)1657 (Given - Provider: Elly Cormier RN)2110 (Given - Provider: Bev Carey RN) 0812 (Given - Provider: Elly Cormier RN)1226 (Given - Provider: Elly Cormier RN)1755 (Given - Provider: Elly Cormier RN)2100 (Canceled Entry - Provider: Automatic Discharge Provider - Comment: Automatically canceled at discontinue of medication order) pregabalin (Lyrica) capsule 200 mg 200 mg, Oral, 3 times daily, First dose on Thu05/18/24 at 0900 0839 (Given - Provider: Dedrick Martin RN)1526 (Given - Provider: Dedrick Martin RN)2046 (Given - Provider: Aleksandra Pinon RN) 0837 (Given - Provider: Elly Cormier RN)1259 (Given - Provider: Elly Cormier RN)2110 (Given - Provider: Bev Carey RN) 0811 (Given - Provider: Elly Cormier RN)1226 (Given - Provider: Elly Cormier RN)2100 (Canceled Entry - Provider: Automatic Discharge Provider - Comment: Automatically canceled at discontinue of medication order) tamsulosin (Flomax) 24 hr capsule 0.4 mg 0.4 mg, Oral, Daily, First dose on Thu05/18/24 at 0900, Do not crush, chew, or split. 0839 (Given - Provider: Dedrick Martin RN) 0838 (Given - Provider: Elly Cormier, LIBRADO) 0812 (Given - Provider: Elly Cormier RN) therapeutic multivitamin-minerals (Theragran-M) tablet 1 tablet, Oral, Daily, First dose on Thu05/18/24 at 0900 0839 (Given - Provider: Dedrick Martin RN) 0837 (Given - Provider: Elly Cormier RN) 0812 (Given - Provider: Elly Cormier RN) PRN Medication Order 05/20/2024 05/21/2024 05/22/2024 acetaminophen (Tylenol) suppository 650 mg(Linked Group 2) 650 mg, Rectal, Every 6 hours PRN, mild pain (1-3), fever, For temp greater than 100.4 F (38 C), Starting on Thu05/18/24 at 0015, Administer if oral route cannot be used. Maximum dose of acetaminophen is 4000 mg from all sources in 24 hours. acetaminophen (Tylenol) tablet 650 mg(Linked Group 2) 650 mg, Oral, Every 6 hours PRN, mild pain (1-3), fever, For temp greater than 100.4 F (38 C), Starting on Thu05/18/24 at 0015, Maximum dose of acetaminophen is 4000 mg from all sources in 24 hours. bisacodyl (Dulcolax) EC tablet 5 mg 5 mg, Oral, Daily PRN, constipation, Starting on Thu05/18/24 at 033, Do not give within 1 hour of antacids, milk, or dairy products. Do not crush, chew, or split. calcium carbonate (Tums) chewable tablet 1,000 mg 1,000 mg, Oral, Every 8 hours PRN, indigestion, heartburn, Starting on Thu05/18/24 at 033 cyclobenzaprine (Flexeril) tablet 10 mg 10 mg, Oral, 3 times daily PRN, muscle spasms, Starting on Thu05/18/24 at 033 dextrose 5 % infusion 100 mL/hr, IntraVENous, PRN, Blood sugar less than 70mg/dL, Starting on Thu05/18/24 at 033, Start infusion following administration of dextrose 50% or glucagon. dextrose 50 % solution 12.5 g 12.5 g, IntraVENous, PRN, low blood sugar, Blood glucose less than 70 mg/dL and patient NOT ALERT or NPO., Starting on Thu05/18/24 at 0339, If patient does not respond within 5 minutes, repeat dose x1. Start D5W at 100 mL/hour until ordering provider can be reached. Repeat blood glucose in 15 minutes. If blood glucose is less than 70 mg/dL, repeat treatment and recheck blood glucose in 15 minutes x2. If using Glucostabilizer, dose as instructed per system. glucagon (human recombinant) injection 1 mg 1 mg, IntraMUSCular, PRN, low blood sugar, Blood glucose less than 70 mg/dL and patient NOT ALERT or NPO and does not have IV access., Starting on Thu05/18/24 at 033, After administration, attempt intravenous access and start D5W at 100 mL/hr. Repeat blood glucose in 15 minutes x2 and notify provider. glucose oral gel 15 g 15 g, Oral, As needed, low blood sugar, Starting on Thu05/18/24 at 0339, If blood glucose less than 50 mg/dL and patient ALERT and NOT NPO, give 2 tubes glucose gel. If blood glucose less than 70 mg/dL and patient ALERT and NOT NPO, give 1 tube glucose gel. Repeat blood glucose in 15 minutes. If blood glucose is less than 70 mg/dL, repeat treatment and recheck blood glucose in 15 minutes x2 and notify provider. HYDROmorphone (Dilaudid) tablet 4 mg 4 mg, Oral, Every 4 hours PRN, severe pain (7-10), Starting on Thu05/18/24 at 0600 0534 (Given - Provider: Kim Benz RN)1101 (Given - Provider: Dedrick Martin RN)2051 (Given - Provider: Aleksandra Pinon, LIBRADO) 033 (Given - Provider: Aleksandra Pinon, RN) naloxone (Narcan) injection 0.4 mg 0.4 mg, IntraVENous, Every 5 min PRN, opioid reversal, respiratory depression, Starting on Thu05/18/24 at 0051, +++ For RR <10, pinpoint pupils, over sedation for opioid reversal - MUST notify professor of environmental studies provider immediately after first dose, may give IM or SQ if no IV access +++ ondansetron (Zofran) injection 4 mg(Linked Group 3) 4 mg, IntraVENous, Every 6 hours PRN, nausea, vomiting, Starting on Thu05/18/24 at 0015, 1st Line. Give IV if patient is unable to take orally. If inadequate response within 60 minutes, proceed to next-line agent or contact provider if no further options ordered. ondansetron ODT (Zofran-ODT) disintegrating tablet 4 mg(Linked Group 3) 4 mg, Oral, Every 8 hours PRN, nausea, vomiting, Starting on Thu05/18/24 at 0015, 1st Line. If inadequate response within 60 minutes, proceed to next-line agent or contact provider if no further options ordered. Patient should allow tablet to dissolve on tongue. Do not remove from blister pack until just before administering. polyethylene glycol (PEG) 3350 (Miralax) packet 17 g 17 g, Oral, Daily PRN, constipation, Starting on Thu05/18/24 at 0015, 1st line for treatment of constipation - give scheduled if no bowel movement in past 24 hours. Linked Groups Order Group 1: Insulin Lispro (Humalog) injection 0-12 UnitsJump to med 0-12 Units, SubCUTAneous, 3 times daily with meals, First dose on Thu05/18/24 at 0800, Medium Dose Correction Algorithm Glucose: Dose: LESS than 139 No Insulin 140-199 2 Unit 200-249 4 Units 250-299 6 Units 300-349 8 Units 350-400 10 Units Above 400 12 Units And Insulin Lispro (Humalog) injection 0-12 UnitsJump to med 0-12 Units, SubCUTAneous, Nightly, First dose on Thu05/18/24 at 2100, If continuous tube feedings/TPN/NPO, give correction dose based on result, no reduction in dose. If eating or bolus tube feeding: Medium Dose Correction Algorithm Glucose: Dose: LESS than 139 No Insulin 140-199 2 Unit 200-249 4 Units 250-299 6 Units 300-349 8 Units 350-400 10 Units Above 400 12 Units Group 2: acetaminophen (Tylenol) tablet 650 mgJump to med 650 mg, Oral, Every 6 hours PRN, mild pain (1-3), fever, For temp greater than 100.4 F (38 C), Starting on Thu05/18/24 at 0015, Maximum dose of acetaminophen is 4000 mg from all sources in 24 hours. Or acetaminophen (Tylenol) suppository 650 mgJump to med 650 mg, Rectal, Every 6 hours PRN, mild pain (1-3), fever, For temp greater than 100.4 F (38 C), Starting on Thu05/18/24 at 0015, Administer if oral route cannot be used. Maximum dose of acetaminophen is 4000 mg from all sources in 24 hours. Group 3: ondansetron ODT (Zofran-ODT) disintegrating tablet 4 mgJump to med 4 mg, Oral, Every 8 hours PRN, nausea, vomiting, Starting on Thu05/18/24 at 0015, 1st Line. If inadequate response within 60 minutes, proceed to next-line agent or contact provider if no further options ordered. Patient should allow tablet to dissolve on tongue. Do not remove from blister pack until just before administering. Or ondansetron (Zofran) injection 4 mgJump to med 4 mg, IntraVENous, Every 6 hours PRN, nausea, vomiting, Starting on Thu05/18/24 at 0015, 1st Line. Give IV if patient is unable to take orally. If inadequate response within 60 minutes, proceed to next-line agent or contact provider if no further options ordered. Scheduled Medication Order 04/26/2025 04/27/2025 04/28/2025 ampicillin-sulbactam (Unasyn) 3,000 mg in sodium chloride 0.9 % 100 mL IVPB (Add-[place]) 3,000 mg, IntraVENous, at 200 mL/hr, Administer over 30 Minutes, Every 6 hours, First dose on Thu04/26/25 at 1230, ADD-[place] bag, Suspected Indication (Select all that apply): Bone and Joint Infection 1519 (New Bag - Provider: Christel Brower RN)1616 (Stopped - Provider: Christel Brower RN)2105 (New Bag - Provider: Valarie King RN)2155 (Stopped - Provider: Valarie King RN) 0253 (New Bag - Provider: Valarie King, LIBRADO)0531 (Stopped - Provider: Valarie King, LIBRADO)0853 (New Bag - Provider: Cheryl Foster RN)0933 (Stopped - Provider: Cheryl Foster RN)1506 (New Bag - Provider: Cheryl Foster RN)1619 (Stopped - Provider: Cheryl Foster RN)2125 (New Bag - Provider: Valarie King RN) 0013 (Stopped - Provider: Valarie King RN)0402 (New Bag - Provider: Valarie Kign RN)0441 (Stopped - Provider: Valarie King RN)1107 (New Bag - Provider: Joann King RN)1139 (Stopped - Provider: Joann King RN)1608 (New Bag - Provider: Joann King RN)1659 (Stopped - Provider: Joann King RN)2100 (Canceled Entry - Provider: Automatic Discharge Provider - Comment: Automatically canceled at discontinue of medication order) apixaban (Eliquis) tablet 5 mg 5 mg, Oral, 2 times daily, First dose on 04/22/25 at 0245, Anticoagulant 0900 (Dose Auto Held)0925 (Unheld by provider - Provider: Berhane Moreno MD)210 (Given - Provider: Valarie King RN) 0853 (Given - Provider: Cheryl Foster RN)212 (Given - Provider: Valarie King RN) 0908 (Given - Provider: Joann King RN)2100 (Canceled Entry - Provider: Automatic Discharge Provider - Comment: Automatically canceled at discontinue of medication order) chlorhexidine (Hibiclens) 4 % solution Topical, Daily, First dose on 04/23/25 at 1400 1305 (Given - Provider: Christel Brower RN) 1356 (Given - Provider: Cheryl Foster RN) 1322 (Given - Provider: Joann King, LIBRADO) DULoxetine (Cymbalta) DR capsule 30 mg 30 mg, Oral, Daily, First dose on 04/22/25 at 0800, Do not crush or chew. 0807 (Given - Provider: Christel Brower RN) 0853 (Given - Provider: Cheryl Foster RN) 0908 (Given - Provider: Joann King RN) ferrous sulfate tablet 325 mg 325 mg, Oral, Daily with breakfast, First dose on Thu04/22/25 at 0800, On hold since Thu04/26/2025 at 0925 until manually unheld 08 (Given - Provider: Christel Brower RN)0925 (Held by provider - Provider: Berhane Moreno MD - Reason: Other) 0800 (Dose Auto Held - Provider: Berhane Moreno MD) 0800 (Dose Auto Held - Provider: Berhane Moreno MD) insulin glargine (Lantus) injection 25 Units (CANCELED) 25 Units, SubCUTAneous, Every morning, First dose (after last modification) on Thu04/26/25 at 0900 0808 (Given - Provider: Christel Brower RN) insulin glargine (Lantus) injection 28 Units 28 Units, SubCUTAneous, Every morning, First dose (after last modification) on Thu04/27/25 at 0900 0852 (Given - Provider: Cheryl Foster RN) 0907 (Given - Provider: Joann King, LIBRADO) Insulin Lispro (Humalog) injection 0-18 Units(Linked Group 1) 0-18 Units, SubCUTAneous, 3 times daily with meals, First dose on Thu04/22/25 at 0800, High Dose Correction Algorithm Glucose: Dose: LESS than 150 No Insulin 150-199 3 Units 200-249 6 Units 250-299 9 Units 300-349 12 Units 350-400 15 Units Above 400 18 Units 0808 (Given - Provider: Christel Brower RN)1244 (Given - Provider: Christel Brower RN)1704 (Given - Provider: Christel Brower RN) 0851 (Not Given - Provider: Cheryl Foster RN - Reason: Order parameters not met)1222 (Given - Provider: Cheryl Foster RN)1727 (Given - Provider: Cheryl Foster RN) 0907 (Given - Provider: Joann King, LIBRADO)1321 (Given - Provider: Joann King, LIBRADO)1745 (Given - Provider: Joann King, LIBRADO) Insulin Lispro (Humalog) injection 0-18 Units 0-18 Units, SubCUTAneous, Nightly, First dose on Thu04/24/25 at 2100, If eating or bolus tube feeding: High Dose Correction Algorithm Glucose: Dose: LESS than 150 No Insulin 150-199 3 Units 200-249 6 Units 250-299 9 Units 300-349 12 Units 350-400 15 Units Above 400 18 Units 2105 (Given - Provider: Valarie King RN) 2123 (Not Given - Provider: Valarie King RN - Reason: Order parameters not met) 2100 (Canceled Entry - Provider: Automatic Discharge Provider - Comment: Automatically canceled at discontinue of medication order) iron sucrose (Venofer) 200 mg in sodium chloride 0.9 % 100 mL IVPB (COMPLETED) 200 mg, IntraVENous, at 100 mL/hr, Administer over 60 Minutes, Every 24 hours, First dose on Thu04/26/25 at 0945, For 2 days, Observe for signs and symptoms of hypersensitivity and/or anaphylactic-type reactions per institutional standard during and following administration. 1049 (New Bag - Provider: Christel Brower RN)1201 (Stopped - Provider: Christel Brower RN) 1024 (New Bag - Provider: Cheryl Foster RN)1150 (Stopped - Provider: Cheryl Foster RN) 0908 (New Bag - Provider: Joann King, LIBRADO)1023 (Stopped - Provider: Joann King, LIBRADO) meropenem (Merrem) 2,000 mg in sodium chloride 0.9 % 100 mL IVPB (CANCELED) 2,000 mg, IntraVENous, at 33.3 mL/hr, Administer over 180 Minutes, Every 8 hours, First dose on Thu04/22/25 at 1400, For 22 doses, Mini-Bag Plus bag, Suspected Indication (Select all that apply): Bone and Joint Infection 0010 (Stopped - Provider: Valarie King RN)0550 (New Bag - Provider: Valarie King, LIBRADO)0852 (Stopped - Provider: Christel Brower RN) midodrine (Proamatine) tablet 10 mg 10 mg, Oral, 3 times daily, First dose on Thu04/22/25 at 0900 0807 (Given - Provider: Christel Brower RN)1304 (Given - Provider: Christel Brower, RN)2102 (Given - Provider: Valarie King RN) 0852 (Given - Provider: Cheryl Foster RN)1354 (Given - Provider: Cheryl Foster RN)2124 (Given - Provider: Valarie King RN) 0908 (Given - Provider: Joann King, LIBRADO)1608 (Given - Provider: Joann King RN)2100 (Canceled Entry - Provider: Automatic Discharge Provider - Comment: Automatically canceled at discontinue of medication order) mirtazapine (Remeron) tablet 7.5 mg 7.5 mg, Oral, Nightly, First dose on 04/22/25 at 2100 2100 (Given - Provider: Valarie King RN) 2124 (Given - Provider: Valarie King RN) 2100 (Canceled Entry - Provider: Automatic Discharge Provider - Comment: Automatically canceled at discontinue of medication order) oxyCODONE (Roxicodone) immediate release tablet 15 mg 15 mg, Oral, 4 times daily, First dose on 04/22/25 at 0900 0807 (Given - Provider: Christel Brower RN)1244 (Given - Provider: Christel Brower RN)1704 (Given - Provider: Christel Brower RN)2101 (Given - Provider: Valarie King RN) 0852 (Given - Provider: Cheryl Foster RN)1354 (Given - Provider: Cheryl Foster RN)1727 (Given - Provider: Cheryl Foster RN)2124 (Given - Provider: Valarie King RN) 0908 (Given - Provider: Joann King RN)1321 (Given - Provider: Joann King, LIBRADO)1745 (Given - Provider: Joann King, LIBRADO)2100 (Canceled Entry - Provider: Automatic Discharge Provider - Comment: Automatically canceled at discontinue of medication order) polyethylene glycol (PEG) 3350 (Miralax) packet 17 g 17 g, Oral, 2 times daily, First dose on 04/22/25 at 0245 0809 (Not Given - Provider: Christel Brower RN - Reason: Patient/family refused)2135 (Not Given - Provider: Valarie King RN - Reason: Patient/family refused) 0852 (Given - Provider: Cheryl Foster RN)214 (Not Given - Provider: Valarie King RN - Reason: Patient/family refused) 09 (Not Given - Provider: Joann King RN - Reason: Patient/family refused)2100 (Canceled Entry - Provider: Automatic Discharge Provider - Comment: Automatically canceled at discontinue of medication order) pregabalin (Lyrica) capsule 200 mg 200 mg, Oral, 3 times daily, First dose on 04/22/25 at 0900 0807 (Given - Provider: Christel Brower RN)1304 (Given - Provider: Christel Brower RN)2100 (Given - Provider: Valarie King RN) 0853 (Given - Provider: Cheryl Foster RN)1354 (Given - Provider: Cheryl Foster RN)2124 (Given - Provider: Valarie King RN) 0908 (Given - Provider: Joann King RN)1321 (Given - Provider: Joann King RN)2100 (Canceled Entry - Provider: Automatic Discharge Provider - Comment: Automatically canceled at discontinue of medication order) senna-docusate sodium (Senokot-S) 8.6-50 MG tablet 2 tablet 2 tablet, Oral, 2 times daily, First dose on 04/22/25 at 0245 0809 (Not Given - Provider: Christel Brower RN - Reason: Patient/family refused)213 (Not Given - Provider: Valarie King RN - Reason: Patient/family refused) 0852 (Given - Provider: Cheryl Foster RN)2145 (Not Given - Provider: Valarie King RN - Reason: Patient/family refused) 0908 (Given - Provider: Joann King RN)2100 (Canceled Entry - Provider: Automatic Discharge Provider - Comment: Automatically canceled at discontinue of medication order) sodium chloride 0.9% (NS) flush 10 mL 10 mL, IntraCATHeter, Every 12 hours, First dose on 04/22/25 at 0630, Administer to each lumen. Line Care. Use 10 mL or larger syringe. 0550 (Given - Provider: Valarie King RN)1704 (Given - Provider: Christel Brower RN) 0557 (Not Given - Provider: Valarie King RN - Reason: IV Fluids Infusing)1730 (Given - Provider: Cheryl Foster RN) 0545 (Not Given - Provider: Valarie King RN - Reason: IV Fluids Infusing)1745 (Given - Provider: Joann King, LIBRADO) tamsulosin (Flomax) 24 hr capsule 0.4 mg 0.4 mg, Oral, Daily, First dose on 04/22/25 at 0900, Do not crush, chew, or split. 0807 (Given - Provider: Christel Brower RN) 0852 (Given - Provider: Cheryl Foster RN) 0908 (Given - Provider: Joann King, LIBRADO) vancomycin IVPB 1500 mg in 250 mL NS (premix) 1,500 mg, IntraVENous, at 125 mL/hr, Administer over 120 Minutes, Every 12 hours, First dose (after last reorder) on 04/22/25 at 1230, premix bag, Suspected Indication (Select all that apply): Skin and Soft Tissue Infection 0039 (New Bag - Provider: Valarie King RN)0253 (Stopped - Provider: Valarie King RN)1244 (New Bag - Provider: Christel Brower RN)1508 (Stopped - Provider: Christel Brower RN) 0046 (New Bag - Provider: Valarie King RN)0247 (Stopped - Provider: Valarie King RN)1222 (New Bag - Provider: Cheryl Foster RN)1427 (Stopped - Provider: Cheryl Foster RN) 0100 (New Bag - Provider: Valarie King RN)0328 (Stopped - Provider: Valarie King RN)1322 (New Bag - Provider: Joann King, LIBRADO)1525 (Stopped - Provider: Joann King, LIBRADO) PRN Medication Order 04/26/2025 04/27/2025 04/28/2025 acetaminophen (Tylenol) suppository 650 mg(Linked Group 2) 650 mg, Rectal, Every 6 hours PRN, mild pain (1-3), fever, For temp greater than 100.4 F (38 C), Starting on 04/22/25 at 0237, Administer if oral route cannot be used. Maximum dose of acetaminophen is 4000 mg from all sources in 24 hours. acetaminophen (Tylenol) tablet 650 mg(Linked Group 2) 650 mg, Oral, Every 6 hours PRN, mild pain (1-3), fever, For temp greater than 100.4 F (38 C), Starting on 04/22/25 at 0237, Maximum dose of acetaminophen is 4000 mg from all sources in 24 hours. bisacodyl (Dulcolax) EC tablet 5 mg 5 mg, Oral, Daily PRN, constipation, 2nd line, Starting on 04/22/25 at 1429, Do not give within 1 hour of antacids, milk, or dairy products. Do not crush, chew, or split. bisacodyl (Dulcolax) suppository 10 mg 10 mg, Rectal, Daily PRN, constipation, 3rd line, Starting on 04/22/25 at 1430 calcium carbonate (Tums) chewable tablet 1,000 mg 1,000 mg, Oral, Every 8 hours PRN, indigestion, heartburn, Starting on 04/22/25 at 0237 cyclobenzaprine (Flexeril) tablet 10 mg 10 mg, Oral, 3 times daily PRN, muscle spasms, Starting on 04/22/25 at 0237 0807 (Given - Provider: Christel Brower RN)2100 (Given - Provider: Valarie King RN) 0853 (Given - Provider: Cheryl Foster RN)2124 (Given - Provider: Valarie King, LIBRADO) dextrose 5 % infusion 100 mL/hr, IntraVENous, PRN, Blood sugar less than 70mg/dL, Starting on 04/22/25 at 0237, Start infusion following administration of dextrose 50% or glucagon. dextrose 50 % solution 12.5 g 12.5 g, IntraVENous, PRN, low blood sugar, Blood glucose less than 70 mg/dL and patient NOT ALERT or NPO., Starting on 04/22/25 at 0237, If patient does not respond within 5 minutes, repeat dose x1. Start D5W at 100 mL/hour until ordering provider can be reached. Repeat blood glucose in 15 minutes. If blood glucose is less than 70 mg/dL, repeat treatment and recheck blood glucose in 15 minutes x2. If using Glucostabilizer, dose as instructed per system. glucagon (human recombinant) injection 1 mg 1 mg, IntraMUSCular, PRN, low blood sugar, Blood glucose less than 70 mg/dL and patient NOT ALERT or NPO and does not have IV access., Starting on 04/22/25 at 0237, After administration, attempt intravenous access and start D5W at 100 mL/hr. Repeat blood glucose in 15 minutes x2 and notify provider. glucose oral gel 15 g 15 g, Oral, As needed, low blood sugar, Starting on 04/22/25 at 0237, If blood glucose less than 50 mg/dL and patient ALERT and NOT NPO, give 2 tubes glucose gel. If blood glucose less than 70 mg/dL and patient ALERT and NOT NPO, give 1 tube glucose gel. Repeat blood glucose in 15 minutes. If blood glucose is less than 70 mg/dL, repeat treatment and recheck blood glucose in 15 minutes x2 and notify provider. naloxone (Narcan) nasal spray 4 mg 4 mg, Nasal, PRN, opioid reversal, Starting on 04/22/25 at 0237, Give 4 mg (1 nasal spray) into one nostril. May repeat every 2-3 minutes if needed, alternating nostrils, until medical assistance becomes available. ondansetron (Zofran) injection 4 mg(Linked Group 3) 4 mg, IntraVENous, Every 6 hours PRN, nausea, vomiting, Starting on 04/22/25 at 0237, 1st Line. Give IV if patient is unable to take orally. If inadequate response within 60 minutes, proceed to next-line agent or contact provider if no further options ordered. ondansetron ODT (Zofran-ODT) disintegrating tablet 4 mg(Linked Group 3) 4 mg, Oral, Every 8 hours PRN, nausea, vomiting, Starting on 04/22/25 at 0237, 1st Line. If inadequate response within 60 minutes, proceed to next-line agent or contact provider if no further options ordered. Patient should allow tablet to dissolve on tongue. Do not remove from blister pack until just before administering. Petrolatum ointment Topical, 2 times daily PRN, dry skin, Starting on Thu04/28/25 at 1105, Apply to bilat feet. polyethylene glycol (PEG) 3350 (Miralax) packet 17 g 17 g, Oral, Daily PRN, constipation, Starting on 04/22/25 at 0237, 1st line for treatment of constipation - give scheduled if no bowel movement in past 24 hours. sodium chloride 0.9% (NS) flush 10 mL 10 mL, IntraCATHeter, PRN, line care, before blood draws, before and after infusion or medication administration, Starting on 04/22/25 at 0624, Use 10 mL or larger syringe. Linked Groups Order Group 1: Insulin Lispro (Humalog) injection 0-18 UnitsJump to med 0-18 Units, SubCUTAneous, 3 times daily with meals, First dose on Thu04/22/25 at 0800, High Dose Correction Algorithm Glucose: Dose: LESS than 150 No Insulin 150-199 3 Units 200-249 6 Units 250-299 9 Units 300-349 12 Units 350-400 15 Units Above 400 18 Units And Insulin Lispro (Humalog) injection 0-18 Units (CANCELED) 0-18 Units, SubCUTAneous, Nightly, First dose on Thu04/22/25 at 2100, If eating or bolus tube feeding: High Dose Correction Algorithm Glucose: Dose: LESS than 150 No Insulin 150-199 3 Units 200-249 6 Units 250-299 9 Units 300-349 12 Units 350-400 15 Units Above 400 18 Units, On hold since 04/23/2025 at 2215 until manually unheld Group 2: acetaminophen (Tylenol) tablet 650 mgJump to med 650 mg, Oral, Every 6 hours PRN, mild pain (1-3), fever, For temp greater than 100.4 F (38 C), Starting on 04/22/25 at 0237, Maximum dose of acetaminophen is 4000 mg from all sources in 24 hours. Or acetaminophen (Tylenol) suppository 650 mgJump to med 650 mg, Rectal, Every 6 hours PRN, mild pain (1-3), fever, For temp greater than 100.4 F (38 C), Starting on 04/22/25 at 0237, Administer if oral route cannot be used. Maximum dose of acetaminophen is 4000 mg from all sources in 24 hours. Group 3: ondansetron ODT (Zofran-ODT) disintegrating tablet 4 mgJump to med 4 mg, Oral, Every 8 hours PRN, nausea, vomiting, Starting on 04/22/25 at 0237, 1st Line. If inadequate response within 60 minutes, proceed to next-line agent or contact provider if no further options ordered. Patient should allow tablet to dissolve on tongue. Do not remove from blister pack until just before administering. Or ondansetron (Zofran) injection 4 mgJump to med 4 mg, IntraVENous, Every 6 hours PRN, nausea, vomiting, Starting on 04/22/25 at 0237, 1st Line. Give IV if patient is unable to take orally. If inadequate response within 60 minutes, proceed to next-line agent or contact provider if no further options ordered. FOR RECORDS PERTAINING TO PATIENTS WHO ARE OR HAVE BEEN ENROLLED IN A CHEMICAL DEPENDENCY/SUBSTANCEABUSE PROGRAM, SOME INFORMATION MAY BE OMITTED. This clinical summary was aggregated from multiple sources. Caution should be exercised in using it in the provision of clinical care. This summary normalizes information from multiple sources, and as a consequence, information in this document may materially change the coding, format and clinical context of patient data. In addition, data may be omitted in some cases. CLINICAL DECISIONS SHOULD BE BASED ON THE PRIMARY CLINICAL RECORDS. [email or web address] provides no warranty or guarantee of the accuracy or completeness of information in this document.
[2025-05-01 09:01] LABS: Hematocrit 33.5 % (40-54); Hemoglobin 10.9 g/dL (13.0-16.5); Mean Corp Hgb Conc 32.5 g/dL (32-36); Mean Corpuscular Volume 90.3 fL (80-94); Mean Platelet Vol. 9.7 fl (6.2-12.0); Platelet Count 340 K/mm3 (150-450); RBC Distribution Width CV 15.9 % (11.6-14.6); RBC Distribution Width SD 51.4 fl (35.1-43.9); Red Blood Count 3.71 M/mm3 (4.6-6.2); White Blood Count 7.4 K/mm3 (4.4-11.0)
[2025-05-01 09:29] LABS: AST(SGOT) 16 U/L (<=37); Alanine Aminotransfer ALT/SGPT 7 U/L (<=46); Albumin, Serum 3.0 g/dL (3.4-4.8); Alkaline Phosphatase 115 U/L (40-129); Anion Gap 12 (5-15); BUN 10 mg/dL (4-19); BUN/Creat Ratio 19.4 RATIO (10-20); Calcium,Total 8.5 mg/dL (7.6-11.0); Carbon Dioxide 20.2 mmol/L (21.0-32.0); Chloride 106 mmol/L (98-108); Globulin 3.8 g/dL (2.2-4.2); Glucose 126 mg/dL (70-99); Potassium 3.7 mmol/L (3.3-5.1)
[2025-05-01 09:30] LABS: Vancomycin, Trough Level 26.1 ug/mL (5.0-15.0)
== END ==
LOC: OLS.SANC 05:00
PROVIDERS: PCP Family Medicine; Visit Provider Internal Medicine
DX: D64.9 Anemia, unspecified (principal); E11.9 Type 2 diabetes mellitus without complications; M86.9 Osteomyelitis, unspecified
CPT/HCPCS: 36415; 80053; 80202; 85027

== ENCOUNTER → 2025-05-03 | Outpatient (REF) | payer MEDICAID, SELFPAY ==
[2025-05-03 07:56] LABS: Vancomycin, Trough Level 22.0 ug/mL (5.0-15.0)
== END | disposition home or self-care (01) ==
LOC: OLS.SANC 05:00
PROVIDERS: PCP Family Medicine; Visit Provider Internal Medicine
DX: Z79.899 Other long term (current) drug therapy (principal)
CPT/HCPCS: 36415; 80202

== ENCOUNTER → 2025-05-09 05:00 | Outpatient (REF) | payer MEDICAID, SELFPAY ==
--- OUTSIDE RECORDS SUMMARY | 2025-05-09 04:35 | XMS RPT_ITS | CCD ---
Author Organization [facility] Care Team Providers Care Pollution Control Technician Name Role Phone YARITZA, GALE A Unavailable [...] Unavailable Esterle, Ambrosio M Primary Care Provider [phone] YARITZA, GALE Admitting Unavailable ORLANDO PATEL Consulting Unavailable ESTERLE, AMBROSIO M Primary Care Unavailable YARITZA, GALE Attending Unavailable ESTERLE, AMBROSIO M Primary Care Unavailable YARITZA, GALE Referring Unavailable YARITZA, GALE Attending Unavailable Unavailable Unavailable Esterle DO, Ambrosio M Primary Care Provider Penny Cameron MD Unavailable [phone] Gayle Scott MD Unavailable [phone] Esterle DO, Ambrosio M Unavailable [phone] Esterle DO, Ambrosio M Primary Care Provider Unavailable Primary Care Provider Unavailabl e Placeway DO, Vaishali Unavailable Esterle DO, Ambrosio M Primary Care Provider Jorge IRWIN, Joan Enriquez Unavailable Ambrosio Monroy DO Primary Care Provider [phone] Tab Dupont Primary Care Provider Otis Mejia MD Unavailable Giuliano Shultz DO Unavailable Faisal Simeon DO Unavailable BERNA JOHNSON Referring Unavailable PROVIDER, UNKNOWN Attending Unavailable PROVIDER, UNKNOWN Admitting Unavailable PROVIDER, UNKNOWN Attending Unavailable PROVIDER, UNKNOWN Admitting Unavailable PLACEWAY, VAISHALI Referring Unavailable BLANCO, FAISAL Attending Unavailable PROVIDER, UNKNOWN Admitting Unavailable PROVIDER, UNKNOWN Admitting Unavailable PLACEWAY, VAISHALI Referring Unavailable BELDING, OTIS Vasques Attending Unavailable PROVIDER, UNKNOWN Attending [...] Ambrosio Monroy DO Primary Care Provider [phone] Tab Joshi Attending Provider Unavailab Tab Benson Referring Provider Unavailab Dr. Daisy Li MD Attending Provider Dr. Daisy Garay MD Referring Provider Unava Dr. Ambrosio Sanchez DO Primary Care Provider [phone] Tab Joshi Attending Provider Unavailab Tab Benson Referring Provider Unavailab Dr. Daisy Li MD Attending Provider Dr. Daisy Garay MD Referring Provider Penny De La Cruz MD Unavailable Gayle Scott MD Unavailable Ambrosio Monroy MD Unavailable Dr. Ambrosio Monroy DO Primary Care Provider [phone] Tab Joshi Attending Provider Unavailab KRISTINE Foster Referring Unavailable MILAD GOODSON Attending Unavailable MILAD GOODSON Attending Unavailable Tab Dupont MD Primary Care Provider HOWARD GAMA Admitting Unavail able GAYLE SCOTT Consulting Unavailable CHUY PADILLA Attending Unavailable TAB DUPONTS Primary Care Unavaila ble ANMOL HERBERT Referring Unavail able LUPILLO, ANMOL PINON Attending Unavail able LUPILLO, ANMOL PINON Admitting Unavail able TAB DUPONT Primary Care Unavaila ble KATSACAROLINE, PETER Primary Care Unavailable GEORGETTE BUENO Admitting Unavailable BERHANE MORENO Attending Unavailable JO-ANN ORTIZ Consulting Unavailable KODAKANDLA, NARSIMHA Admitting Unavailable PARVIN MAHAJAN Attending Unavailable SARASACAROLINE PETER Primary Care Unavailable JOAN PATEL Admitting Unavailable JOAN PATEL Attending Unavailable ESTERLE, AMBROSIO Primary Care Unavailable YOANA SOLITARIO Attending Unavailable KATSAROS PETER Primary Care Unavailable Katsaros Tab MURO Attending Unavailable Esterle, Ambrosio M Primary Care Unavailable Esterle, Ambrosio M Primary Care Unavailable Tab Joshi Attending Unavailable Tab Joshi Attending Unavailable Esterle, Ambrosio M Primary Care [...] Unavailable Esterle, Ambrosio M Primary Care Unavailable Esterle, Ambrosio M Primary Care Unavailable Katsaros Tab MURO Attending Unavailable Esterle, Ambrosio M Primary Care Unavailable Katsaros Tab MURO Attending Unavailable Katsaros JINA Peter Referring Unavailable Tab Joshi Attending Unavailable Ambrosio Monroy Primary Care Unavailable Daisy Henry Attending Unavailable Daisy Henry Referring Unavailable Ambrosio Monroy Primary Care Unavailable Tab [...] Inject 825 mg intravenously q 24 [place]. [address] mg 0 01/24/2022 02/25/2022 Active Comment on [...] 0 01/24/2022 Active take 1 capsule by [facility] twice daily gabapentin (NEURONTIN) 300 MG capsule Take 300 mg by mouth 2 times daily 0 Active Comment on above: Take 1 capsule by [facility] every 12 hours for 30 days. HYDROmorphone [...] Take 1 tablet by [facility] th every 6 hours as needed (Anxiety). hyoscyamine [...] PRN, opioid reversal, respiratory depression, Starting on Thu05/05/24 at 1816, +++ For RR Start: 04-14-2024 [...] oral capsule (3 sources) Nitrofuran Antibacterial Start: 024 End: 025 take 1 capsule by mouth twice daily [...] Comment on above: Take 1 tablet by [facility] four times daily as needed. sulfamethoxazole 800 [...] Active Start: 04-29-2025 take 1 capsule by [facility] once daily tamsulosin (Flomax) 0.4 MG [...] Comment on above: Take 1 capsule by [facility] once daily. therapeutic multivitamin-minera ls (THERA-M PLUS) 9 mg iron-400 mcg tablet (3 sources) therapeutic multivitamin-glove examiner als (THERA-M PLUS) 9 mg iron-400 mcg tablet Take 1 tablet by mouth once daily. Active Vancomycin (6 sources) Glycopeptide Antibacterial Start: 025 End: take 1500 mg intravenously every twelve hours [...] mL/hr, Administer over 120 Minutes, Once, On 04/21/25 at 2235, For 1 dose, premix bag, [...] sodium chloride 0.9 % 100 mL IVPB (Add-Pecos) (2 sources) Start: 04-26-2025 End: 04-29-2025 take 3000 mg intravenously every six hours 3,000 mg, IntraVENous, at 200 mL/hr, Administer over 30 Minutes, Every 6 hours, First dose on Thu04/26/25 at 1230, ADD-Pecos bag, Suspected Indication (Select all that apply): [...] as needed. Take 1 tablet by [facility] twice daily. calcium carbonate 500 mg chewable [...] hour 50 mL/hr, IntraVENous, Continuous, Starting on Thu05/05/24 [...] Minutes, Every 8 hours, First dose on 04/22/25 at 0800, Mini-Bag Plus bag, Suspected Indication [...] on above: Take 1 tablet by [facility] three times daily. docusate sodium 100 mg [...] Comment on above: Take 1 capsule by [facility] twice daily. docusate sodium 50 mg / sennosides, half-way 8.6 mg oral tablet (20 sources) Start: 02-22-2025 End: 04-29-2025 take 2 tablets by mouth twice daily 2 tablet, Oral, 2 times daily, First dose on 04/22/25 at 0245 Start: 01-24-2022 take 1 tablet by [facility] twice daily senna-docusate (SENNA-S) 8.6-50 mg per tablet Take 1 tablet by mouth twice daily. 01/24/2022 Active Comment on above: Take 1 tablet by [facility] twice daily. DULoxetine 30 mg delayed release oral capsule (20 sources) Serotonin and Norepinephrine Reuptake Inhibitor Start: 11-06-2024 End: 04-29-2025 take 30 mg by mouth once daily 30 mg, Oral, Daily, First dose on 04/22/25 at 0800, Do not crush or chew. Start: 03-31-2024 duloxetine (CY MBALTA) 60 MG capsule 03/31/2024 Active Start: 06-18-2017 take 1 capsule by [facility] once daily DULoxetine (CYMBALTA) 60 MG [...] Blood sugar less than 70mg/dL, Starting on Thu05/05/24 at 1821, Start infusion following administration of [...] Minutes, Every 8 hours, First dose on [facility] 04/22/25 at 1400, For 22 doses, Mini-Bag Plus bag, Suspected Indication (Select all that apply): Bone and Joint Infection midodrine hydrochloride 5 mg oral tablet (16 sources) alpha-Adrenerg ic Agonist Start: 04-22-2025 End: 04-29-2025 take 10 mg by mouth three times daily 10 mg, Oral, 3 times daily, First dose on [facility] 04/22/25 at 0900 Start: 02-22-2025 take 1 [...] Start: 01-24-2022 take 1 tablet by [facility] every eight hours oxyCODONE ER (OXYCONTIN) 40 [...] on above: Take 1 tablet by [facility] every 8 hours for 10 days. Petrolatum [...] for gram positive cocci polyethylene glycol 3350 25315 mg powder for oral solution (20 sources) [...] End: 05-19-2024 40 mEq, Oral, Once, On Thu05/19/24 at 1500, For 1 dose, Best given [...] Start: 04-14-2024 End: 04-20-2024 Start: 01-29-2024 End: 04-28-2026 take 200 mg by mouth three times daily 200 mg, Oral, 3 times daily, First dose on 04/22/25 at 0900 Start: 12-29-2023 End: 01-29-2024 take [...] Comment on above: Take 1 tablet by [facility] once daily. 10 ml sodium bicarbonate 84 [...] sources) Long-term current use of antibiotic; Translations: [FCI (current) use of antibiotics] Onset: 5 02-17-2025 [...] displacement, lumbosacral region] Onset: 7 07-07-2017 Chronic Spondylosis; intervertebral disc disorders; other back problems (20 sources) Radiculopathy, lumbar region; Translations: [Spinal stenosis, lumbar region] Onset: 7 10-24-2020 Episodic Substance-related disorders (20 sources) Nicotine dependence; Translations: [...] Onset: 05-27-2017 Episodic Other aftercare (1 source) [facility]CI (current) use of insulin; Translations: [Type 2 diabetes mellitus with hyperglycemia, with long-term current use of insulin (HCC)] Onset: 01-04-2022 Episodic Other aftercare (1 source) Other care home (current) drug therapy; Translations: [Other care home (current) drug therapy] Onset: 10-28-2024 Episodic Other [employer] infection and poliomyelitis (8 sources) Epidural abscess; [...] abscess] Onset: 06-13-2019 Resolved: 05-29-2020 10-15-2020 Episodic Sprains and strains (20 sources) Sprain of hip; Translations: [Unspecified sprain of unspecified hip, initial encounter] Onset: 01-06-2017 01-06-2017 Episodic Unclassified (1 source) Encounter for other preprocedural examination; Translations: [Encounter for other preprocedural examination] Onset: 08-03-2017 Unclassified (5 sources) NO SHOW Onset: 08-31-2013 Resolved: 05-29-2020 05-29-2020 Results Test Name Value Interpretation Reference Range Facility 36on 05-03-2025 36 Message received fro m Dr. Alvarez to keep the same dose for now. Called Nikki back at [facility] and released message via voicemail. Encouraged her to call office back if have any more questions or concerns. [facility] 36 Received call from Nikki, nurse at [facility]. They repeated the vanc trough again today due to it being elevated on the . The level today is 22. Facility calling to see if physician wanted to continue the 1gm every 12 hours or want to make another adjustment before his dose at 9am today. Sent secure chat to Dr. Alvarez. Awaiting message back. [facility] Vancomycin, Trough Levelon 0 05-03-2025 VANCO, TROUGH 22.0 ug/mL High 5.0-15.0 [facility] Comment on above: Order Comment: 313.2 Result Comment: Jp mmended goal trough ranges are generally 10-15 mcg/ml for less severe/complicated infections such as cellulitis or UTI and 15-20 mcg/ml for more severe/complicated infections such as bacteremia/sepsis, osteomyelitis, pneumonia or meningitis. Goal trough ranges should take into account indication, patient-specific factors and organism HARINDER. VANCOMYCIN STANDARED DRUG THERAPY TROUGH LEVEL: 5.0 - 15.0 mg/L VANCOMYCIN HIGH INTENSITY THERAPY TROUGH LEVEL: 15.0 - 20.0 mg/L High Intensity therapy recommended for serious life threatening infections include: - Meningitis -Endocarditis -Pneumonia (Ventilator/Healtcare Associated) -Sepsis PLEASE CONTACT PHARMACY SERVICES (#[id number]) FOR INTERPRETATION OF RESULTS. Performed By: #### L 500.2500, L100.0500 #### [facility] [address] [place], [address] 36on 05-01-2025 36 Received lab report for patient. Labs drawn today and nursing facility. Vanc trough is 26.1. Called and spoke to Ambrosio, nurse at facility. Wanted to make sure this is a true trough. Ambrosio stated that labs were drawn by outside company at 6am and vanc dose was given at 8:47am. Sent secure chat to Dr. Alvarez to make him aware of vanc level and creatinine. New order to decrease vanc to 1g every 12 hours. OPAT updated and scanned. Verbally read new order to Ambrosio. Verbalized understanding of new order. [facility] 36 Pt dc to [facility] jessy [facility]val[facility] [phone]. Called facility and spoke to nurse Vaughan to verify IV meds, dose, frequency, EOT, weekly labs, and follow up appt with Dr. Alvarez on 06/02 at 11am. She was able to read back orders. Also faxed appt reminder to facility and received confirmation fax (scanned under media). [facility] CBC-Complete Blood Cnt No Di ffon 05-01-2025 Erythrocyte distribution width (RBC) [Ratio] 15.9 % High 11.6-14.6 [facility] Comment on above: Performed By: #### L 100.0500, L500.4050, L501.8820 #### [facility] [address] [place], [address] Hematocrit (Bld) [Volume fraction] 33.5 % Low 40-54 [facility] Comment on above: Performed By: #### L 100.0500, L500.4050, L501.8820 #### [facility] [address] [place], [address] Hemoglobin (Bld) [Mass/Vol] 10.9 g/dL Low 13.0-16.5 [facility] Comment on above: Performed By: #### L 100.0500, L500.4050, L501.8820 #### [facility] [address] [place], [address] MCH (RBC) [Entitic mass] 29.4 pg Normal 27.0-32.0 [facility] Comment on above: Performed By: #### L 100.0500, L500.4050, L501.8820 #### [facility] [address] [place], [address] MCHC (RBC) [Mass/Vol] 32.5 g/dL Normal 32-36 [facility] Comment on above: Performed By: #### L 100.0500, L500.4050, L501.8820 #### [facility] [address] [place], [address] MCV (RBC) [Entitic vol] 90.3 fL Normal 80-94 [facility] Comment on above: Performed By: #### L 100.0500, L500.4050, L501.8820 #### [facility] [address] [place], [address] Platelet mean volume (Bld) [Entitic vol] 9.7 fL Normal 6.2-12.0 [facility] Comment on above: Performed By: #### L 100.0500, L500.4050, L501.8820 #### [facility] [address] [place], [address] Platelets (Bld) [#/Vol] 340 10*3/uL Normal 150-450 [facility] Comment on above: Performed By: #### L 100.0500, L500.4050, L501.8820 #### [facility] [address] [place], [address] RBC (Bld) [#/Vol] 3.71 10*6/uL Low 4.6-6.2 [facility] Comment on above: Performed By: #### L 100.0500, L500.4050, L501.8820 #### [facility] [address] [place], [address] RDW SD 51.4 fl High 35.1-43.9 [facility] Comment on above: Performed By: #### L 100.0500, L500.4050, L501.8820 #### [facility] [address] [place], [address] WBC (Bld) [#/Vol] 7.4 10*3/uL Normal 4.4-11.0 [facility] Comment on above: Performed By: #### L 100.0500, L500.4050, L501.8820 #### [facility] [address] [place], [address] Comprehensive Metabolic Prof [facility] 05-01-2025 Albumin [Mass/Vol] 3.0 g/dL Low 3.4-4.8 [facility] Comment on above: Performed By: #### L 100.0500, L500.4050, L501.8820 #### [facility] [address] [place], [address] Albumin/Globulin [Mass ratio] 0.8 {ratio} Low 0.9-2.4 [facility] Comment on above: Performed By: #### L 100.0500, L500.4050, L501.8820 #### [facility] [address] [place], [address] ALK PHOS 115 U/L Normal 40-129 [facility] Comment on above: Performed By: #### L 100.0500, L500.4050, L501.8820 #### [facility] [address] [place], [address] ALT [Catalytic activity/Vol] 7 U/L Normal <=46 [facility] Comment on above: Performed By: #### L 100.0500, L500.4050, L501.8820 #### [facility] [address] [place], [address] AST [Catalytic activity/Vol] 16 U/L Normal <=37 [facility] Comment on above: Performed By: #### L 100.0500, L500.4050, L501.8820 #### [facility] [address] [place], [address] Bilirubin [Mass/Vol] 0.26 mg/dL Normal 0.00-1.30 [facility] Comment on above: Performed By: #### L 100.0500, L500.4050, L501.8820 #### [facility] [address] [place], [address] BUN/CRE 19.4 RATIO Normal 10-20 [facility] Comment on above: Performed By: #### L 100.0500, L500.4050, L501.8820 #### [facility] [address] [place], [address] Calcium [Mass/Vol] 8.5 mg/dL Normal 7.6-11.0 [facility] Comment on above: Performed By: #### L 100.0500, L500.4050, L501.8820 #### [facility] [address] [place], [address] Chloride [Moles/Vol] 106 mmol/L Normal 98-108 [facility] Comment on above: Performed By: #### L 100.0500, L500.4050, L501.8820 #### [facility] [address] [place], [address] CO2 [Moles/Vol] 20.2 mmol/L Low 21.0-32.0 [facility] Comment on above: Performed By: #### L 100.0500, L500.4050, L501.8820 #### [facility] [address] [place], [address] Creatinine [Mass/Vol] 0.51 mg/dL Low 0.70-1.20 [facility] Comment on above: Performed By: #### L 100.0500, L500.4050, L501.8820 #### [facility] [address] [place], [address] GAP 12 Normal 5-15 [facility] Comment on above: Performed By: #### L 100.0500, L500.4050, L501.8820 #### [facility] [address] [place], [address] GFR/1.73 sq M.predicted among non-blacks MDRD (S/P/Bld) [Vol rate/Area] 114 mL/min/{1.73_m2} Normal >60 [facility] Comment on above: Result Comment: mL/m in/1.73m2 CKD-EPI Creatinine Equation (2020) Performed By: #### L 100.0500, L500.4050, L501.8820 #### [facility] [address] [place], [address] Globulin (S) [Mass/Vol] 3.8 g/dL Normal 2.2-4.2 [facility] Comment on above: Performed By: #### L 100.0500, L500.4050, L501.8820 #### [facility] [address] [place], [address] Glucose [Mass/Vol] 126 mg/dL High 70-99 [facility] Comment on above: Performed By: #### L 100.0500, L500.4050, L501.8820 #### [facility] [address] [place], [address] Potassium [Moles/Vol] 3.7 mmol/L Normal 3.3-5.1 [facility] Comment on above: Performed By: #### L 100.0500, L500.4050, L501.8820 #### [facility] [address] [place], [address] Sodium [Moles/Vol] 138 mmol/L Normal 133-145 [facility] Comment on above: Performed By: #### L 100.0500, L500.4050, L501.8820 #### [facility] [address] [place], [address] T PROT 6.8 g/dL Normal 5.9-8.4 [facility] Comment on above: Performed By: #### L 100.0500, L500.4050, L501.8820 #### [facility] [address] [place], [address] Urea nitrogen [Mass/Vol] 10 mg/dL Normal 4-19 [facility] Comment on above: Performed By: #### L 100.0500, L500.4050, L501.8820 #### [facility] [address] [place], [address] Vancomycin, Trough Levelon - VANCO, TROUGH 26.1 ug/mL High 5.0-15.0 [facility] Comment on above: Order Comment: 313-2 Result Comment: Jp mmended goal trough ranges are generally 10-15 mcg/ml for less severe/complicated infections such as cellulitis or UTI and 15-20 mcg/ml for more severe/complicated infections such as bacteremia/sepsis, osteomyelitis, pneumonia or meningitis. Goal trough ranges should take into account indication, patient-specific factors and organism HARINDER. VANCOMYCIN STANDARED DRUG THERAPY TROUGH LEVEL: 5.0 - 15.0 mg/L VANCOMYCIN HIGH INTENSITY THERAPY TROUGH LEVEL: 15.0 - 20.0 mg/L High Intensity therapy recommended for serious life threatening infections include: - Meningitis -Endocarditis -Pneumonia (Ventilator/Healtcare Associated) -Sepsis PLEASE CONTACT PHARMACY SERVICES (#[id number]) FOR INTERPRETATION OF RESULTS. Performed By: #### L 100.0500, L500.2500 #### [facility] [address] [place], [address] 30on 04-28-2025 30 Proteus is sensitive to unasyn. OPAT for unasyn and vancomycin completed and scanned into media with stop date of 06/06. Follow up with Dr. Alvarez. D/w TCC. Plans for discharge to SNF. Jo-Ann Ortiz MD [facility] [id number] 04-28-2025 [id number] Next Site of Care Admission Date: 04/21/2025 09:56 PM Patient Name: ANMOL REYNOLDS Location: [place] [id number] Date of : 1960 ------- Placement Information ------- Referral Type:Halfway/SNF - Return Referral ID:[id number] Provider Name:Tierra Delvalle MOOI Address [address] Address 2: City:[place] Selection Factors:Patient/Famil y Choice State:[place] [facility] [phone] Halfway/SNF - Return [facility] [place] [facility] [address] [place] [phone] Patient/Family Choice [facility] [phone] Confirmed pickup mingo e of 5:30pm on 04/28/25 by transport company Carlos Obrien at phone number [phone]. Location of facility drop off is [facility]. Facility notified via [facility]port, TCC notified on secure chat. [facility] [phone] Transport requested in Roundtrip in will call to [facility] per [facility]. [facility] Bacteria identified Aer cx N om (Unsp spec)on 04-28-2025 Gram Stain Result Many Polymorphonuclear leukocytes per low power field Abnormal [facility] Gram Stain Result Positive Abnormal [facility] Interpretation and review of laboratory results Abnormal [facility] Laboratory - Chemistry and C hemistry - challengeon 04-28-2025 Glucose [Mass/Vol] 212 mg/dL High 70 - 100 mg/dL [facility] Glucose [Mass/Vol] 183 mg/dL High 70 - 100 mg/dL [facility] Glucose [Mass/Vol] 152 mg/dL High 70 - 100 mg/dL [facility] Laboratory - Microbiology an d Antimicrobial susceptibilityon 04-28-2025 Bacteria identified Aer cx Nom (Unsp spec) Rare skin gosia present [facility] Bacteria identified Aer cx Nom (Unsp spec) Moderate Enterococcus raffinosus Abnormal [facility] Bacteria identified Aer cx Nom (Unsp spec) Rare Proteus mirabilis Abnormal [facility] No Panel Informationon 04-28 Interpretation and review of laboratory results Abnormal [facility] Performed by: [address] [address] CLIA ID: [id number] [facility] Interpretation and review of laboratory results Abnormal [facility] Performed by: [facility], [address] [place] [id number] CLIA ID: [id number] [facility] Interpretation and review of laboratory results Abnormal [facility] Performed by: [facility], [address] [place] [address] CLIA ID: [id number] [facility] Nursing Noteon 04-28-2025 Nursing Note Called report to the [facility]. PICC line clean dry and intact. Aide got pt ready and gathered all belongings. Waiting on transport to arrive. [facility] 30on 04-27-2025 [address] Alvarez- s/p L ischial wound debridement with osteomyelitis. Additional organisms are being reported on OR cx. E raffinosus, Proteus, MRSA, Clostridium ramosum, enteric gosia, and skin gosia. Await Proteus sensitivities prior to completion of OPAT. Will provide final recommendations tomorrow. D/w TCC. Jo-Ann Ortiz MD [facility] BASIC METABOLIC PANELon 04-05 Anion gap [Moles/Vol] 3 mmol/L Normal 3-13 [facility] Comment on above: Performed By: #### L [id number] #### Reservations Agent: BIANCA NICHOLS ([id number]) [facility] [address] [place] [address] [place] Calcium [Mass/Vol] 8.6 mg/dL Low 8.8-10.0 [facility] Comment on above: Performed By: #### L [id number] #### Reservations Agent: BIANCA NICHOLS ([phone]) [facility] ([facility]) [address] [place] [address] [place] Chloride [Moles/Vol] 104 mmol/L Normal 98-107 [facility] Comment on above: Performed By: #### L [id number] #### Reservations Agent: BIANCA NICHOLS ([phone]) [facility] ([facility]) [address] [place] [address] [place] CO2 [Moles/Vol] 29 mmol/L Normal 23-31 [facility] Comment on above: Performed By: #### L [id number] #### Reservations Agent: BIANCA NICHOLS ([id number]) [facility] [address] [place] [address] Creatinine [Mass/Vol] 0.64 mg/dL Low 0.72-1.25 [facility] Comment on above: Performed By: #### L [id number] #### Reservations Agent: BIANCA NICHOLS ([phone]) [facility] ([facility]) [address] [place] [address] GLOMERULAR FILTRATION RATE ML/MIN/1.73 SQ M.PREDICTED >90.0 Normal >60.0 [facility] Comment on above: Result Comment: Calc ulation based on the Chronic Kidney Disease Epidemiology Collaboration (CKD-EPI) equation refit without adjustment for race Performed By: #### L [id number] #### Reservations Agent: BIANCA NICHOLS ([id number]) [facility] [address] [place] [address] Glucose [Mass/Vol] 96 mg/dL Normal 82-115 [facility] Comment on above: Performed By: #### L [id number] #### Reservations Agent: BIANCA NICHOLS ([id number]) [facility] ([facility]) [address] [place] [address] Potassium [Moles/Vol] 4.0 mmol/L Normal 3.5-5.1 [facility] Comment on above: Result Comment: [facility] potassium values may be up to 0.5 mmol/L lower than serum values. Performed By: #### L [id number] #### Reservations Agent: BIANCA NICHOLS ([phone]) [facility] [address] [place] [address] Sodium [Moles/Vol] 136 mmol/L Normal 136-145 [facility] Comment on above: Performed By: #### L [id number] #### Reservations Agent: BIANCA NICHOLS ([id number]) [facility] ([facility]) [address] [place] [address] Urea nitrogen [Mass/Vol] 21 mg/dL Normal 06-27 [facility] Comment on above: Performed By: #### L [id number] #### Reservations Agent: BIANCA NICHOLS ([phone]) [facility] ([facility]) [address] [place] [address] Bacteria identified Aer cx N om (Unsp spec)on 04-27-2025 Gram Stain Result Few Polymorphonuclea r leukocytes per low power field [facility] Gram Stain Result No organisms seen [facility] Interpretation and review of laboratory results Abnormal [facility] Bacteria identified Anaer cx Nom (Unsp spec)Ordered By: Vijaya Mariscal on 04-27-2025 Interpretation and review of laboratory results Abnormal [facility] Bacteria identified Cx Nom ( Bld)on 04-27-2025 Interpretation and review of laboratory results Normal [facility] Blood Collection Site: Right Forearm [facility] Blood Collection Site: Left PICC Purple Lumen [facility] Basic metabolic 1998 panelon 04-27-2025 Anion gap [Moles/Vol] 3 mmol/L 3 - 13 mmol/L [facility] Calcium [Mass/Vol] 8.6 mg/dL Low 8.8 - 10. 0 mg/dL [facility] Chloride [Moles/Vol] 104 mmol/L 98 - 10 7 mmol/L [facility] CO2 [Moles/Vol] 29 mmol/L 23 - 31 mmol/L [facility] Creatinine [Mass/Vol] 0.64 mg/dL Low 0.72 - 1.25 mg/dL [facility] GFR/1.73 sq M.predicted (S/P/Bld) [Vol rate/Area] - PINF [facility] Comment on above: Calculation based on the Chronic Kidney Disease Epidemiology Collaboration (CKD-EPI) equation refit without adjustment for race Glucose [Mass/Vol] 96 mg/dL 82 - 115 mg/dL [facility] Interpretation and review of laboratory results Abnormal [facility] Potassium [Moles/Vol] 4 mmol/L 3.5 - 5.1 mmol/L [facility] Comment on above: Plasma potassium leonie ues may be up to 0.5 mmol/L lower than serum values. Sodium [Moles/Vol] 136 mmol/L 136 - 145 mmol/L [facility] Urea nitrogen [Mass/Vol] 21 mg/dL 9 - 23 mg/dL [facility] CBC W Auto Differential pane l (Bld)on 04-27-2025 Basophils (Bld) [#/Vol] 0.1 10*3/uL 0.0 - 0.2 10*3/uL [facility] Basophils/100 WBC (Bld) 0.8 % 0.0 - 2.0 % [facility] Eosinophils (Bld) [#/Vol] 0.4 10*3/uL 0.0 - 0.5 10*3/uL [facility] Eosinophils/100 WBC (Bld) 5.3 % 0.0 - 6.0 % [facility] Erythrocyte distribution width (RBC) [Ratio] 14.9 % 11.5 - 15.0 % [facility] Hematocrit (Bld) [Volume fraction] 34 % Low 40.0 - 52.0 % [facility] Hemoglobin (Bld) [Mass/Vol] 10.9 g/dL Low 13.0 - 18.0 g/dL [facility] Immature granulocytes (Bld) [#/Vol] 0 10*3/uL NINF - 0.1 10*3/uL [facility] Immature granulocytes/100 WBC (Bld) 0.5 % 0.0 - 2.0 % [facility] Interpretation and review of laboratory results Abnormal [facility] Lymphocytes (Bld) [#/Vol] 2.9 10*3/uL 1.0 - 4.3 10*3/uL [facility] Lymphocytes/100 WBC (Bld) 36.4 % 15.0 - 45.0 % [facility] MCH (RBC) [Entitic mass] 28.8 pg 26. 0 - 34.0 pg [facility] MCHC (RBC) [Mass/Vol] 32.1 % 30.5 - 36.0 % [facility] MCV (RBC) [Entitic vol] 89.9 fL 77.0 - 99.0 fL [facility] Monocytes (Bld) [#/Vol] 0.7 10*3/uL 0.0 - 0.9 10*3/uL [facility] Monocytes/100 WBC (Bld) 8.2 % 5.0 - 13.0 % [facility] Neutrophils (Bld) [#/Vol] 3.9 10*3/uL 1.8 - 7.5 10*3/uL [facility] Neutrophils/100 WBC (Bld) 48.8 % 38.0 - 82.0 % [facility] Nucleated RBC/100 WBC (Bld) [Ratio] 0 % [facility] Platelet mean volume (Bld) [Entitic vol] 9.5 fL 9.0 - 12.7 fL [facility] Platelets (Bld) [#/Vol] 363 10*3/uL 140 - 440 10*3/uL [facility] RBC (Bld) [#/Vol] 3.78 10*6/uL Low 4.40 - 5.9 0 10*6/uL [facility] WBC (Bld) [#/Vol] 8 10*3/uL 3.6 - 10.7 10*3/uL [facility] CBC WITH AUTO DIFFERENTIALon 04-27-2025 Basophils (Bld) [#/Vol] 0.1 10*3/uL Normal 0.0-0.2 [facility] Comment on above: Performed By: #### L [id number] ####Reservations Agent: BIANCA NICHOLS ([phone])[facility])[address] [place] [address] Basophils/100 WBC (Bld) 0.8 % Normal 0.0-2.0 [facility] Comment on above: Performed By: #### L [id number] ####Reservations Agent: BIANCA NICHOLS ([phone])[facility] ([facility])[address] [place] [address] Eosinophils (Bld) [#/Vol] 0.4 10*3/uL Normal 0.0-0.5 [facility] Comment on above: Performed By: #### L [id number] ####Reservations Agent: BIANCA NICHOLS ([phone])[facility])[address] [place] [place] [address] [place] Eosinophils/100 WBC (Bld) 5.3 % Normal 0.0-6.0 [facility] Comment on above: Performed By: #### L [id number] ####Reservations Agent: BIANCA NICHOLS ([phone])[facility])[address] [place] [address] Erythrocyte distribution width (RBC) [Ratio] 14.9 % Normal 11.5-15.0 [facility] Comment on above: Performed By: #### L [id number] ####Reservations Agent: BIANCA NICHOLS ([phone])[facility])[address] [place] [address] Hematocrit (Bld) [Volume fraction] 34.0 % Low 40.0-52.0 [facility] Comment on above: Performed By: #### L [id number] ####Reservations Agent: BIANCA NICHOLS ([id number])[facility])[address] [place] [address] Hemoglobin (Bld) [Mass/Vol] 10.9 g/dL Low 13.0-18.0 [facility] Comment on above: Performed By: #### L [id number] ####Reservations Agent: BIANCA NICHOLS ([phone])[facility] ([facility])[address] [place] [address] IMMATURE GRANS % 0.5 % Normal 0.0-2.0 [facility] Comment on above: Performed By: #### L [id number] ####Reservations Agent: BIANCA NICHOLS ([phone])[facility])[address] [place] [address] IMMATURE GRANS ABSOLUTE 0.0 10*3/uL Normal <0.1 [facility] Comment on above: Performed By: #### L [id number] ####Reservations Agent: BIANCA NICHOLS ([phone])[facility])[address] [place] [address] Lymphocytes (Bld) [#/Vol] 2.9 10*3/uL Normal 1.0-4.3 [facility] Comment on above: Performed By: #### L [id number] ####Reservations Agent: BIANCA NICHOLS ([phone])[facility])[address] [place] [address] Lymphocytes/100 WBC (Bld) 36.4 % Normal 15.0-45.0 [facility] Comment on above: Performed By: #### L [id number] ####Reservations Agent: BIANCA NICHOLS ([phone])[facility])[address] [place] [address] MCH (RBC) [Entitic mass] 28.8 pg Normal 26.0-34.0 [facility] Comment on above: Performed By: #### L [id number] ####Reservations Agent: BIANCA NICHOLS ([id number])[facility])[address] [place] [address] MCHC 32.1 % Normal 30.5-36.0 [facility] Comment on above: Performed By: #### L [id number] ####Reservations Agent: BIANCA NICHOLS ([phone])[facility])[address] [place] [address] MCV (RBC) [Entitic vol] 89.9 fL Normal 77.0-99.0 [facility] Comment on above: Performed By: #### L [id number] ####Reservations Agent: BIANCA NICHOLS ([phone])[facility])[address] [place] [address] Monocytes (Bld) [#/Vol] 0.7 10*3/uL Normal 0.0-0.9 [facility] Comment on above: Performed By: #### L [id number] ####Reservations Agent: BIANCA NICHOLS ([phone])[facility] ([facility])[address] [place] [address] Monocytes/100 WBC (Bld) 8.2 % Normal 5.0-13.0 [facility] Comment on above: Performed By: #### L [id number] ####Reservations Agent: BIANCA NICHOLS ([phone])[facility])[address] [place] [address] NEUTROPHILS ABSOLUTE 3.9 10*3/uL Normal 1.8-7.5 [facility] Comment on above: Performed By: #### L [id number] ####Reservations Agent: BIANCA NICHOLS ([phone])[facility] ([facility])[address] [place] [address] Neutrophils/100 WBC (Bld) 48.8 % Normal 38.0-82.0 [facility] Comment on above: Performed By: #### L [id number] ####Reservations Agent: BIANCA NICHOLS ([phone])[facility] ([facility])[address] [place] [address] NRBC 0.0 /100 WBCs Normal 0.0-2.0 [facility] Comment on above: Performed By: #### L [id number] ####Reservations Agent: BIANCA NICHOLS ([phone])[facility] ([facility])[address] [place] [address] Platelet mean volume (Bld) [Entitic vol] 9.5 fL Normal 9.0-12.7 [facility] Comment on above: Performed By: #### L [id number] ####Reservations Agent: BIANCA NICHOLS ([phone])[facility] ([facility])[address] [place] [address] Platelets (Bld) [#/Vol] 363 10*3/uL Normal 140-440 [facility] Comment on above: Performed By: #### L [id number] ####Reservations Agent: BIANCA NICHOLS ([phone])[facility] ([facility])[address] [place] [address] RBC (Bld) [#/Vol] 3.78 10*6/uL Low 4.40-5.90 [facility] Comment on above: Performed By: #### L [id number] ####Reservations Agent: BIANCA NICHOLS ([phone])[facility] ([facility])[address] [place] [address] WBC (Bld) [#/Vol] 8.0 10*3/uL Normal 3.6-10.7 [facility] Comment on above: Performed By: #### L [id number] ####Reservations Agent: BIANCA NICHOLS ([phone])[facility] ([facility])[address] [place] [address] Laboratory - Chemistry and C hemistry - challengeon 04-27-2025 Glucose [Mass/Vol] 146 mg/dL High 70 - 100 mg/dL [facility] Glucose [Mass/Vol] 228 mg/dL High 70 - 100 mg/dL [facility] Glucose [Mass/Vol] 265 mg/dL High 70 - 100 mg/dL [facility] Glucose [Mass/Vol] 137 mg/dL High 70 - 100 mg/dL [facility] Laboratory - Microbiology an d Antimicrobial susceptibilityOrdered By: Vijaya Mariscal on 04-27-2025 Bacteria identified Anaer cx Nom (Unsp spec) Moderate Anaerobic Gram-negative bacilli, not B. fragilis Abnormal [facility] Laboratory - Microbiology an d Antimicrobial susceptibilityon 04-27-2025 Bacteria identified Aer cx Nom (Unsp spec) Rare Enterococcus raffinosus Abnormal [facility] Bacteria identified Cx Nom (Bld) No growth at 5 days [facility] No Panel Informationon 04-27 Interpretation and review of laboratory results Abnormal [facility] Performed by: [place] [address] CLIA ID: [id number] [facility] Interpretation and review of laboratory results Abnormal [facility] Performed by: [place] [address] CLIA ID: [id number] [facility] Interpretation and review of laboratory results Abnormal [facility] Performed by: [place] [address] CLIA ID: [id number] [facility] Interpretation and review of laboratory results Abnormal [facility] Performed by: [address] [address] CLIA ID: [id number] [facility] Nursing Noteon 04-27-2025 Nursing Note Patient dressings changed as per orders. Patient tolerated well. Left PICC dressing changed patient tolerated well Normal [facility] BASIC METABOLIC PANELon 04-05 Anion gap [Moles/Vol] 6 mmol/L Normal -13 [facility] Comment on above: Performed By: #### L [id number] #### Reservations Agent: BIANCA NICHOLS ([phone]) [facility] [address] [place] [address] Calcium [Mass/Vol] 8.5 mg/dL Low 8.8-10.0 [facility] Comment on above: Performed By: #### L [id number] #### Reservations Agent: BIANCA NICHOLS ([phone]) [facility] [address] [place] [address] [place] Chloride [Moles/Vol] 103 mmol/L Normal 98-107 [facility] Comment on above: Performed By: #### L [id number] #### Reservations Agent: BIANCA NICHOLS ([phone]) [facility] ([facility]) [address] [place] [address] CO2 [Moles/Vol] 27 mmol/L Normal 23-31 [facility] Comment on above: Performed By: #### L [id number] #### Reservations Agent: BIANCA NICHOLS ([phone]) [facility] [address] [place] [address] Creatinine [Mass/Vol] 0.62 mg/dL Low 0.72-1.25 [facility] Comment on above: Performed By: #### L [id number] #### Reservations Agent: BIANCA NICHOLS ([phone]) [facility] ([facility]) [address] [place] [address] GLOMERULAR FILTRATION RATE ML/MIN/1.73 SQ M.PREDICTED >90.0 Normal >60.0 [facility] Comment on above: Result Comment: Calc ulation based on the Chronic Kidney Disease Epidemiology Collaboration (CKD-EPI) equation refit without adjustment for race Performed By: #### L [id number] #### Reservations Agent: BIANCA NICHOLS ([phone]) [facility] [address] [place] [address] [place] Glucose [Mass/Vol] 155 mg/dL High 82-115 [facility] Comment on above: Performed By: #### L [id number] #### Reservations Agent: BIANCA NICHOLS ([id number]) [facility] ([facility]) [address] [place] [address] Potassium [Moles/Vol] 4.0 mmol/L Normal 3.5-5.1 [facility] Comment on above: Result Comment: [facility] potassium values may be up to 0.5 mmol/L lower than serum values. Performed By: #### L [id number] #### Reservations Agent: BIANCA NICHOLS ([id number]) [facility] ([facility]) [address] [place] [address] Sodium [Moles/Vol] 136 mmol/L Normal 136-145 [facility] Comment on above: Performed By: #### L [id number] #### Reservations Agent: BIANCA NICHOLS ([id number]) [facility] ([facility]) [address] [place] [address] Urea nitrogen [Mass/Vol] 19 mg/dL Normal 9-23 [facility] Comment on above: Performed By: #### L [id number] #### Reservations Agent: BIANCA NICHOLS ([phone]) [facility] ([facility]) [address] [place] [address] Basic metabolic 1998 panelon 04-26-2025 Anion gap [Moles/Vol] 6 mmol/L 3 - 13 mmol/L [facility] Calcium [Mass/Vol] 8.5 mg/dL Low 8.8 - 10. 0 mg/dL [facility] Chloride [Moles/Vol] 103 mmol/L 98 - 10 7 mmol/L [facility] CO2 [Moles/Vol] 27 mmol/L 23 - 31 mmol/L [facility] Creatinine [Mass/Vol] 0.62 mg/dL Low 0.72 - 1.25 mg/dL [facility] GFR/1.73 sq M.predicted (S/P/Bld) [Vol rate/Area] - PINF [facility] Comment on above: Calculation based on the Chronic Kidney Disease Epidemiology Collaboration (CKD-EPI) equation refit without adjustment for race Glucose [Mass/Vol] 155 mg/dL High 82 - 115 mg/dL [facility] Interpretation and review of laboratory results Abnormal [facility] Potassium [Moles/Vol] 4 mmol/L 3.5 - 5.1 mmol/L [facility] Comment on above: Plasma potassium leonie ues may be up to 0.5 mmol/L lower than serum values. Sodium [Moles/Vol] 136 mmol/L 136 - 145 mmol/L [facility] Urea nitrogen [Mass/Vol] 19 mg/dL 9 - 23 mg/dL [facility] CBC (HEMOGRAM)on 04-26-2025 Erythrocyte distribution width (RBC) [Ratio] 14.8 % Normal 11.5-15.0 [facility] Comment on above: Performed By: #### L [id number] #### Reservations Agent: BIANCA NICHOLS ([phone]) [facility] ([facility]) [address] [place] [address] Hematocrit (Bld) [Volume fraction] 33.8 % Low 40.0-52.0 [facility] Comment on above: Performed By: #### L [id number] #### Reservations Agent: BIANCA NICHOLS ([id number]) [facility]) [address] [place] [address] Hemoglobin (Bld) [Mass/Vol] 11.0 g/dL Low 13.0-18.0 [facility] Comment on above: Performed By: #### L [id number] #### Reservations Agent: BIANCA NICHOLS ([phone]) [facility]) [address] [place] [address] MCH (RBC) [Entitic mass] 29.3 pg Normal 26.0-34.0 [facility] Comment on above: Performed By: #### L [id number] #### Reservations Agent: BIANCA NICHOLS ([phone]) [facility] ([facility]) [address] [place] [address] MCHC 32.5 % Normal 30.5-36.0 [facility] Comment on above: Performed By: #### L [id number] #### Reservations Agent: BIANCA NICHOLS ([phone]) [facility] ([facility]) [address] [place] [address] MCV (RBC) [Entitic vol] 89.9 fL Normal 77.0-99.0 [facility] Comment on above: Performed By: #### L [id number] #### Reservations Agent: BIANCA NICHOLS ([id number]) [facility] ([facility]) [address] [place] [address] Platelet mean volume (Bld) [Entitic vol] 9.5 fL Normal 9.0-12.7 [facility] Comment on above: Performed By: #### L [id number] #### Reservations Agent: BIANCA NICHOLS ([id number]) [facility] ([facility]) [address] [place] [address] Platelets (Bld) [#/Vol] 386 10*3/uL Normal 140-440 [facility] Comment on above: Performed By: #### L [id number] #### Reservations Agent: BIANCA NICHOLS ([id number]) [facility] ([facility]) [address] [place] [address] RBC (Bld) [#/Vol] 3.76 10*6/uL Low 4.40-5.90 [facility] Comment on above: Performed By: #### L [id number] #### Reservations Agent: BIANCA NICHOLS ([id number]) [facility] ([facility]) [address] [place] [address] WBC (Bld) [#/Vol] 7.3 10*3/uL Normal 3.6-10.7 [facility] Comment on above: Performed By: #### L [id number] #### Reservations Agent: BIANCA NICHOLS ([phone]) [facility] ([facility]) [address] [place] [address] CBC panel Auto (Bld)on 04-26 Erythrocyte distribution width (RBC) [Ratio] 14.8 % 11.5 - 15.0 % [facility] Hematocrit (Bld) [Volume fraction] 33.8 % Low 40.0 - 52.0 % [facility] Hemoglobin (Bld) [Mass/Vol] 11 g/dL Low 13.0 - 18.0 g/dL [facility] Interpretation and review of laboratory results Abnormal [facility] MCH (RBC) [Entitic mass] 29.3 pg 26. 0 - 34.0 pg [facility] MCHC (RBC) [Mass/Vol] 32.5 % 30.5 - 36.0 % [facility] MCV (RBC) [Entitic vol] 89.9 fL 77.0 - 99.0 fL [facility] Platelet mean volume (Bld) [Entitic vol] 9.5 fL 9.0 - 12.7 fL [facility] Platelets (Bld) [#/Vol] 386 10*3/uL 140 - 440 10*3/uL [facility] RBC (Bld) [#/Vol] 3.76 10*6/uL Low 4.40 - 5.9 0 10*6/uL [facility] WBC (Bld) [#/Vol] 7.3 10*3/uL 3.6 - 10.7 10*3/uL [facility] IRON AND TIBCon 04-26-2025 IRON BINDING CAPACITY 136 ug/dL Low 250-450 [facility] Comment on above: Performed By: #### L [id number] #### Reservations Agent: BIANCA NICHOLS ([id number]) [facility] [address] [place] [address] IRON SATURATION 44.1 % Normal 20.0-50.0 [facility] Comment on above: Performed By: #### L [id number] #### Reservations Agent: BIANCA NICHOLS ([phone]) [facility] ([facility]) [address] [place] [address] IRON, TOTAL 60 ug/dL Low 65-175 [facility] Comment on above: Performed By: #### L [id number] #### Reservations Agent: BIANCA NICHOLS ([id number]) [facility] [address] [place] [address] Iron and Iron binding capaci ty panelon 04-26-2025 Interpretation and review of laboratory results Abnormal [facility] Iron [Mass/Vol] 60 ug/dL Low 65 - 175 ug/dL [facility] Iron binding capacity [Mass/Vol] 136 ug/dL Low 250 - 450 ug/dL [facility] Iron saturation [Mass fraction] 44.1 % 20.0 - 50.0 % [facility] Laboratory - Chemistry and C hemistry - challengeon 04-26-2025 Glucose [Mass/Vol] 244 mg/dL High 70 - 100 mg/dL [facility] Glucose [Mass/Vol] 199 mg/dL High 70 - 100 mg/dL [facility] Glucose [Mass/Vol] 219 mg/dL High 70 - 100 mg/dL [facility] Glucose [Mass/Vol] 185 mg/dL High 70 - 100 mg/dL [facility] No Panel Informationon 04-26 Interpretation and review of laboratory results Abnormal [facility] Performed by: [address] [address] CLIA ID: [id number] [facility] Interpretation and review of laboratory results Abnormal [facility] Performed by: [address] [address] CLIA ID: [id number] [facility] Interpretation and review of laboratory results Abnormal [facility] Performed by: [address] [address] CLIA ID: [id number] [facility] Interpretation and review of laboratory results Abnormal [facility] Performed by: [address] [address] CLIA ID: [id number] [facility] BASIC METABOLIC PANELon 04-05 Anion gap [Moles/Vol] 7 mmol/L Normal 3-13 [facility] Comment on above: Performed By: #### L [id number] ####Reservations Agent: BIANCA NICHOLS ([phone])[facility] ([facility])[address] [place] [address] Calcium [Mass/Vol] 8.2 mg/dL Low 8.8-10.0 [facility] Comment on above: Performed By: #### L AB15 ####Reservations Agent: BIANCA NICHOLS ([phone])[facility] ([facility])[address] [place] [address] [place] Chloride [Moles/Vol] 101 mmol/L Normal 98-107 [facility] Comment on above: Performed By: #### L AB15 ####Reservations Agent: BIANCA NICHOLS ([phone])[facility] ([facility])[address] [place] [address] [place] CO2 [Moles/Vol] 26 mmol/L Normal 23-31 [facility] Comment on above: Performed By: #### L AB15 ####Reservations Agent: BIANCA NICHOLS ([phone])[facility])[address] [place] [address] Creatinine [Mass/Vol] 0.73 mg/dL Normal 0.72-1.25 [facility] Comment on above: Performed By: #### L AB15 ####Reservations Agent: BIANCA NICHOLS ([id number])[facility])[address] [place] [address] GLOMERULAR FILTRATION RATE ML/MIN/1.73 SQ M.PREDICTED >90.0 Normal >60.0 [facility] Comment on above: Result Comment: Calc ulation based on the Chronic Kidney Disease Epidemiology Collaboration (CKD-EPI) equation refit without adjustment for race Performed By: #### L AB15 ####Reservations Agent: BIANCA NICHOLS ([phone])[facility] ([facility])[address] [place] [address] Glucose [Mass/Vol] 213 mg/dL High 82-115 [facility] Comment on above: Performed By: #### L AB15 ####Reservations Agent: BIANCA NICHOLS ([id number])[facility])[address] [place] [address] Potassium [Moles/Vol] 4.3 mmol/L Normal 3.5-5.1 [facility] Comment on above: Result Comment: [facility] potassium values may be up to 0.5 mmol/L lower than serum values. Performed By: #### L AB15 ####Reservations Agent: BIANCA NICHOLS ([phone])[facility])[address] [place] [place] [address] [place] Sodium [Moles/Vol] 134 mmol/L Low 136-145 [facility] Comment on above: Performed By: #### L AB15 ####Reservations Agent: BIANCA NICHOLS ([phone])[facility])[address] [place] [address] Urea nitrogen [Mass/Vol] 14 mg/dL Normal 9-23 [facility] Comment on above: Performed By: #### L AB15 ####Reservations Agent: BIANCA NICHOLS ([phone])[facility] ([facility])[address] [place] [address] Bacteria identified Aer cx N om (Unsp spec)Ordered By: Joy York on 04-25-2025 Gram Stain Result Many Polymorphonuclear leukocytes per low power field Abnormal [facility] Gram Stain Result Negative Abnormal [facility] Gram Stain Result Positive Abnormal [facility] Interpretation and review of laboratory results Abnormal [facility] PBP2A Positive [facility] Basic metabolic 1998 panelon 04-25-2025 Anion gap [Moles/Vol] 7 mmol/L 3 - 13 mmol/L [facility] Calcium [Mass/Vol] 8.2 mg/dL Low 8.8 - 10. 0 mg/dL [facility] Chloride [Moles/Vol] 101 mmol/L 98 - 10 7 mmol/L [facility] CO2 [Moles/Vol] 26 mmol/L 23 - 31 mmol/L [facility] Creatinine [Mass/Vol] 0.73 mg/dL 0.72 - 1.25 mg/dL [facility] GFR/1.73 sq M.predicted (S/P/Bld) [Vol rate/Area] - PINF [facility] Comment on above: Calculation based on the Chronic Kidney Disease Epidemiology Collaboration (CKD-EPI) equation refit without adjustment for race Glucose [Mass/Vol] 213 mg/dL High 82 - 115 mg/dL [facility] Interpretation and review of laboratory results Abnormal [facility] Potassium [Moles/Vol] 4.3 mmol/L 3.5 - 5.1 mmol/L [facility] Comment on above: Plasma potassium leonie ues may be up to 0.5 mmol/L lower than serum values. Sodium [Moles/Vol] 134 mmol/L Low 136 - 145 mmol/L [facility] Urea nitrogen [Mass/Vol] 14 mg/dL 9 - 23 mg/dL [facility] CBC W Auto Differential pane l (Bld)on 04-25-2025 Basophils (Bld) [#/Vol] 0 10*3/uL 0.0 - 0.2 10*3/uL [facility] Basophils/100 WBC (Bld) 0.4 % 0.0 - 2.0 % [facility] Eosinophils (Bld) [#/Vol] 0.1 10*3/uL 0.0 - 0.5 10*3/uL [facility] Eosinophils/100 WBC (Bld) 0.8 % 0.0 - 6.0 % [facility] Erythrocyte distribution width (RBC) [Ratio] 14.8 % 11.5 - 15.0 % [facility] Hematocrit (Bld) [Volume fraction] 32.6 % Low 40.0 - 52.0 % [facility] Hemoglobin (Bld) [Mass/Vol] 10.4 g/dL Low 13.0 - 18.0 g/dL [facility] Immature granulocytes (Bld) [#/Vol] 0 10*3/uL NINF - 0.1 10*3/uL [facility] Immature granulocytes/100 WBC (Bld) 0.4 % 0.0 - 2.0 % [facility] Interpretation and review of laboratory results Abnormal [facility] Lymphocytes (Bld) [#/Vol] 2 10*3/uL 1.0 - 4.3 10*3/uL [facility] Lymphocytes/100 WBC (Bld) 20.7 % 15.0 - 45.0 % [facility] MCH (RBC) [Entitic mass] 28.7 pg 26. 0 - 34.0 pg [facility] MCHC (RBC) [Mass/Vol] 31.9 % 30.5 - 36.0 % [facility] MCV (RBC) [Entitic vol] 90.1 fL 77.0 - 99.0 fL [facility] Monocytes (Bld) [#/Vol] 0.9 10*3/uL 0.0 - 0.9 10*3/uL [facility] Monocytes/100 WBC (Bld) 9.3 % 5.0 - 13.0 % [facility] Neutrophils (Bld) [#/Vol] 6.5 10*3/uL 1.8 - 7.5 10*3/uL [facility] Neutrophils/100 WBC (Bld) 68.4 % 38.0 - 82.0 % [facility] Nucleated RBC/100 WBC (Bld) [Ratio] 0 % [facility] Platelet mean volume (Bld) [Entitic vol] 9.9 fL 9.0 - 12.7 fL [facility] Platelets (Bld) [#/Vol] 421 10*3/uL 140 - 440 10*3/uL [facility] RBC (Bld) [#/Vol] 3.62 10*6/uL Low 4.40 - 5.9 0 10*6/uL [facility] WBC (Bld) [#/Vol] 9.5 10*3/uL 3.6 - 10.7 10*3/uL [facility] CBC WITH AUTO DIFFERENTIALon 04-25-2025 Basophils (Bld) [#/Vol] 0.0 10*3/uL Normal 0.0-0.2 [facility] Comment on above: Performed By: #### L [id number] #### Reservations Agent: BIANCA NICHOLS ([phone]) [facility]) [address] [place] [address] Basophils/100 WBC (Bld) 0.4 % Normal 0.0-2.0 [facility] Comment on above: Performed By: #### L [id number] #### Reservations Agent: BIANCA NICHOLS ([id number]) [facility] ([facility]) [address] [place] [address] Eosinophils (Bld) [#/Vol] 0.1 10*3/uL Normal 0.0-0.5 [facility] Comment on above: Performed By: #### L [id number] #### Reservations Agent: BIANCA NICHOLS ([phone]) [facility] ([facility]) [address] [place] [address] Eosinophils/100 WBC (Bld) 0.8 % Normal 0.0-6.0 [facility] Comment on above: Performed By: #### L [id number] #### Reservations Agent: BIANCA NICHOLS ([phone]) [facility]) [address] [place] [address] Erythrocyte distribution width (RBC) [Ratio] 14.8 % Normal 11.5-15.0 [facility] Comment on above: Performed By: #### L AB233 #### Reservations Agent: BIANCA [id number]) [facility]) [address] [place] [address] Hematocrit (Bld) [Volume fraction] 32.6 % Low 40.0-52.0 [facility] Comment on above: Performed By: #### L [id number] #### Reservations Agent: BIANCA NICHOLS ([id number]) [facility]) [address] [place] [address] Hemoglobin (Bld) [Mass/Vol] 10.4 g/dL Low 13.0-18.0 [facility] Comment on above: Performed By: #### L AB233 #### Reservations Agent: BIANCA NICHOLS ([phone]) [facility]) [address] [place] [address] IMMATURE GRANS % 0.4 % Normal 0.0-2.0 [facility] Comment on above: Performed By: #### L [id number] #### Reservations Agent: BIANCA NICHOLS ([phone]) [facility]) [address] [place] [address] IMMATURE GRANS ABSOLUTE 0.0 10*3/uL Normal <0.1 [facility] Comment on above: Performed By: #### L AB233 #### Reservations Agent: BIANCA NICHOLS ([phone]) [facility]) [address] [place] [address] Lymphocytes (Bld) [#/Vol] 2.0 10*3/uL Normal 1.0-4.3 [facility] Comment on above: Performed By: #### L [id number] #### Reservations Agent: BIANCA NICHOLS ([phone]) [facility]) [address] [place] [address] Lymphocytes/100 WBC (Bld) 20.7 % Normal 15.0-45.0 [facility] Comment on above: Performed By: #### L AB233 #### Reservations Agent: BIANCA NICHOLS ([phone]) [facility]) [address] [place] [address] MCH (RBC) [Entitic mass] 28.7 pg Normal 26.0-34.0 [facility] Comment on above: Performed By: #### L AB233 #### Reservations Agent: BIANCA NICHOLS ([id number]) [facility]) [address] [place] [address] MCHC 31.9 % Normal 30.5-36.0 [facility] Comment on above: Performed By: #### L AB233 #### Reservations Agent: BIANCA NICHOLS ([id number]) [facility] ([facility]) [address] [place] [address] MCV (RBC) [Entitic vol] 90.1 fL Normal 77.0-99.0 [facility] Comment on above: Performed By: #### L AB233 #### Reservations Agent: BIANCA NICHOLS ([id number]) [facility]) [address] [place] [address] Monocytes (Bld) [#/Vol] 0.9 10*3/uL Normal 0.0-0.9 [facility] Comment on above: Performed By: #### L AB233 #### Reservations Agent: BIANCA NICHOLS ([id number]) [facility]) [address] [place] [address] Monocytes/100 WBC (Bld) 9.3 % Normal 5.0-13.0 [facility] Comment on above: Performed By: #### L AB233 #### Reservations Agent: BIANCA NICHOLS ([phone]) [facility]) [address] [place] [address] NEUTROPHILS ABSOLUTE 6.5 10*3/uL Normal 1.8-7.5 [facility] Comment on above: Performed By: #### L AB233 #### Reservations Agent: BIANCA NICHOLS ([id number]) [facility]) [address] [place] [address] Neutrophils/100 WBC (Bld) 68.4 % Normal 38.0-82.0 [facility] Comment on above: Performed By: #### L AB233 #### Reservations Agent: BIANCA [id number]) [facility] [address] [place] [address] NRBC 0.0 /100 WBCs Normal 0.0-2.0 [facility] Comment on above: Performed By: #### L AB233 #### Reservations Agent: BIANCA NICHOLS ([phone]) [facility] ([facility]) [address] [place] [address] Platelet mean volume (Bld) [Entitic vol] 9.9 fL Normal 9.0-12.7 [facility] Comment on above: Performed By: #### L AB233 #### Reservations Agent: BIANCA NICHOLS ([phone]) [facility] ([facility]) [address] [place] [address] Platelets (Bld) [#/Vol] 421 10*3/uL Normal 140-440 [facility] Comment on above: Performed By: #### L AB233 #### Reservations Agent: BIANCA NICHOLS ([phone]) [facility] ([facility]) [address] [place] [address] RBC (Bld) [#/Vol] 3.62 10*6/uL Low 4.40-5.90 [facility] Comment on above: Performed By: #### L AB233 #### Reservations Agent: BIANCA NICHOLS ([phone]) [facility] ([facility]) [address] [place] [address] WBC (Bld) [#/Vol] 9.5 10*3/uL Normal 3.6-10.7 [facility] Comment on above: Performed By: #### L [id number] #### Reservations Agent: BIANCA NICHOLS ([phone]) [facility]) [address] [place] [address] Consulton 04-25-2025 Consult [facility] Wound Care CONSULT Note Anmol Reynolds AGE: 64 y.o. GENDER: male : 1960 Subjective: HISTORY of PRESENT ILLNESS HPI Anmol Reynolds is a 64 y.o. male who presents for a wound consult. HPI: Anmol is a 64 y.o. male with past medical history below who presents with chief complaint listed above. Patient sent to [facility] ER by [facility] to [facility] the patient's wounds on his sacrum were worsening and becoming infected. Patient is a paraplegic for the last 4 years after surgical complication with Dr. Ashley at [facility]. ER workup was significant for [...] and wound present in the soft tissue. Wound Care consulted for pressure injury; sacrum. Patient had surgical debridment of left ischial wound with general surgery on 04/24/25. PAST MEDICAL HISTORY Medical History[1] PAST SURGICAL HISTORY Surgical History[2] FAMILY HISTORY Family History[3] SOCIAL HISTORY Social History[4] ALLERGIES Allergies[5] MEDICATIONS Medications Ordered Prior to Encounter[6] REVIEW OF SYSTEMS Pertinent items are noted in HPI. Objective: BP 113/66 (BP Location: Right arm, Patient Position: Sitting) Pulse 69 Temp 36.1 ?C (96.9 ?F) (Temporal) Resp 21 Ht 6' 3" (1.905 m) Wt 195 lb 6.4 oz (88.6 kg) SpO2 97% BMI 24.42 kg/m? PHYSICAL EXAM General appearance: in no apparent distress, alert, and oriented times 3 Skin: warm and dry Pulmonary: Normal effort, no respiratory distress, no cyanosis Sacrum: [id number]. Wound bed with pink tissue noted. Small serosanguinous drainage. Periwound fragile. 04/25/25 Left ischium: [id number]. Wound bed with eschar, slough and red granulation tissue noted. Moderate bloody drainage. Periwound fragile. 04/25/25 LABS CBC: Lab Results Component Value Date WBC 9.5 04/25/2025 HGB 10.4 (L) 04/25/2025 HCT 32.6 (L) 04/25/2025 MCV 90.1 04/25/2025 PLT 421 04/25/2025 BMP: Lab Results Component Value Date NA 134 (L) 04/25/2025 K 4.3 04/25/2025 CL 101 04/25/2025 CO2 26 04/25/2025 BUN 14 04/25/2025 CREATININE 0.73 04/25/2025 PT/INR: No results found for: "PROTIME", INR Prealbumin: No results found for: PREALBUMIN Albumin:No components found for: "LABALBU" Sed Rate:No results found for: "SEDRATE" Micro: No components found for: "BC" Assessment/Plan: Nursing staff to perform dressing change: Sacrum: stage 4 pressure injury -Cleanse with NS. Apply maxorb to wound bed. Cover with foam dressing daily and PRN Left ischium: stage 4 pressure injury -Cleanse with NS. Pack wet to dry gauze lightly into wound bed. Cover with foam dressing daily and PRN -Envella -waffle chair cushion -Q2hr/PRN turns -glide sheets for T&R -continence checks Q1-2 Hrs/PRN Nutritional support Wound Care to follow Recommend to follow up at [facility] wound care center after hospital discharge. Any questions or concerns please secure chat "ACH wound/ostomy". Thank you for the consult! I personally obtained the thomas and critical portions of the history and physical exam. I reviewed the labs, imaging studies, and electronic medical record. I reviewed the chart documentation and discussed the patient with treatment team members. I have edited the note to reflect my clinical findings and my assessment and plan. Please note, the time of this note does not reflect the time I saw this patient today, but the time of this documentaton. Portions of this note including HPI, ROS, impression/plan, and examination may have been copied forward from admission to today as to provide important historical information essential in contributing to medical decision making. Documentation has been reviewed and edited as necessary to support clinical decision making for today's visit and to reflect my own independent evaluation of this patient. Decision making for today's visit and to reflect my own independent evaluation of this patient. [1] Past Medical History: Diagnosis Date Abnormal posture Abscess, perineum Anemia BPH (benign prostatic hyperplasia) Chronic back pain Hematuria Hip sprain Hyperlipidemia Hypertension Major depressive disorder, single episode, unspecified MRSA (methicillin resistant staph aureus) culture positive spine 2021 Muscle wasting and a (more content not included)... Normal [facility] - Chemistry and C hemistry - challengeon 04-25-2025 Glucose [Mass/Vol] 220 mg/dL High 70 - 100 mg/dL [facility] Glucose [Mass/Vol] 226 mg/dL High 70 - 100 mg/dL [facility] Glucose [Mass/Vol] 281 mg/dL High 70 - 100 mg/dL [facility] Glucose [Mass/Vol] 187 mg/dL High 70 - 100 mg/dL [facility] - Microbiology an d Antimicrobial susceptibilityOrdered By: Joy York on 04-25-2025 Bacteria identified Aer cx Nom (Unsp spec) Moderate enteric gosia present [facility] Bacteria identified Aer cx Nom (Unsp spec) Moderate Staphylococcus aureus Abnormal [facility] Comment on above: Methicillin-resistan t Staphylococcus aureus (MRSA) No Panel Informationon 04-25 Interpretation and review of laboratory results Abnormal [facility] Performed by: [place] [address] CLIA ID: [id number] [facility] Interpretation and review of laboratory results Abnormal [facility] Performed by: [address] [address] CLIA ID: [id number] [facility] Interpretation and review of laboratory results Abnormal [facility] Performed by: [address] [address] CLIA ID: [id number] [facility] Interpretation and review of laboratory results Abnormal [facility] Performed by: [address] [address] CLIA ID: [id number] [facility] No Panel InformationOrdered By: Genaro Kelly on 04-25-2025 Case Report Surgical Pathology Case: [id number] Authorizing Provider: Kaela Durand MD Collected: 04/24/2025 0806 Ordering Location: [facility] MAIN OR Received: 04/24/2025 1209 Pathologist: Genaro Kelly MD PhD Specimen: LEFT ISCHIAL BONE [facility] Work Phone: Clinical Information f8frcYMlYBHwqSBkSAR wM DaxmiRkLLXzdDHtK1Bigb khMOiuWR7bZN6cjIzzqBS kzEAwOAXoYeMdf1fmd477 tZMhu2wgFILKMAfiTBHFX Za5yMfpZ10ca5O4LdjyI3 xyZWQwXGdyZWVuMFxibHV tALp2FGGmyRAddyLhIhJz GGOeeNMytRW9SIHpWX1ta rsyRJbsQGilIPOmceQ7BO PqoSKlN7HnOEYdLG7vukv sLGW2CYisNLVlQHW7HyKx BYBgc8Iyqpz4DqIblOGur 3CrI0rbveLwkNposyLfyp 9uZVxjbGJyZHJsXGJyZHJ sw91qUNRrXlJxzyJyDzRg pc8vcvPoT7ddxkRgHhpwv iBrrn6tNLaskUWehaDzqW ShH8cpvUKFkWL0mEJqU5f 9Q0mhrZm7ZSHgVEXbaHm0 NTgyMFxwYXJkXGludGJsX PBxKZifDOJkOiIlY6IgUD 28qHYkMAUvlQMnCY6fsYG efYtzbKk4eVYmEE63lWWn IHNpdGUgKEhDQykgLSBNO SHcIVmnQ8eINM4nTF5SYK 9qF7JebIwugnXmsHnmv7e yyBMkw0MluBOfuHOyr1xu gLReWQA2KMWvAPAbs24vK CJhDaVzntkkNaDlal5cwc HvP4majnUpqcswvfRtio2 uZVxjbGJyZHJiXGJyZHJu x12mHXYzfaXeaPOsiRylm PR7l7cdSUUeP0zmaWoGfQ K9uPJ5AuLyA5LztHs3KOX yMEHkcwGloQ52BqafBZCi r6O4dqYsxZ7ewCK6WD9mW SWfE5D6G1TznHAzXLwik9 4vEZH9YWjeINLdQSmNPsx lCLFBJRddWNEiUJlBM6Ha LSVhP28xEHLigHqvrL26M wuibk62NYGsqcXvgTWpnU == [employer] [facility] Work Phone: Comment x3ywlPDiIQJzhHTqWNNk M QsqpzFnMAZtrWWmV8Pdbj tlAEshPI2yLO2pxNdmgKW ojNIjVQXbAvXfs4utd811 bTXjq4vzFEPBBUdjSVLKJ Bv2fTuoU53tx3U4JtoxA2 9llBNsEVS1QHStUDYgsLZ kFGTeEHQ1WWFhvNBcA2jk LPZuOL7ckutfAMqwEJsjE JCluLU0WRHpeIUqM2EyRS FwGXgpXIFbbni0XpVmWt6 vdGVyeTcyMFxwYXJkXHBs YWluXGZzMjAgRHIuIFMuI NMqb36vr30hTWLpaxE6hr MuXHBhcn0= [facility] [employer] Work Phone: Disclaimer f8jdwBCgEKCpjGNiOpGf M JNjKKEmk7fwKAAznTGfUw EwMzNcZnRuYmpcdWMxXGR vYjBbh3ykk373wTOkd5yw HOStYbI7rBCcMREvL08bD GIHI846QINeWSgrs0kwc9 QyWFFxoJCey4A9KWNRCPb nGZRPQZa7tSfhY85kk9O2 MjmzS6ecPJHfUWEuH9JxL G0qGIZaVii3CWV2CMU4HK NfRRDiD9BpIR9fMRZstOD fYNa9h1fujBhmBPCvWOX9 f2fnUWxugfAnUO9syq7jq Wf2l4pmoxIwOBViYXFryB YJORRhG8ObpWlrZf3owFp 3hCdmHwizPOI2Xvj7YO3i lv30ors1fWfpDNMirjbuH xM9RAamRZMqnxojIXd9RO veNWDtmIJ8BUAnkVRcZ7Q lCOBkHL6zzdn1JHN6DGoq OIRuDfQ9ABAnjJBbAGIle BeuFCcuj184LWH3PtJwBM 3pS9Fgx3N4yW5owTUbTPP uwWNrRpNrFWJaza7nrOQu DXwlv7PcGTO2jaO7nVYhi JQwULGgVM09Ycuri3YmNe ylEKS5CZGhqhMni7Mlc4k xUqFxpcWqR3llB9HlPVRf AFBwKMDvRvJilzVsx0Itc 9QzvJRzdJj6m9dzIYLoPI ZlhQthu8qrPVJ3IRIqW2C 4eMQaa3brMOviVQQfuCI9 fwW9FVRtrWQbT2OagU2mX SDpUH2ztgb9h0ivTUP4FE crUBKtKhA9ycK8WFQmfGY aFOEjlDlhTFjjf004DRU8 LkDnRQUxe1CwX6WwcFcrQ 81ryUomD07jCIMoeDzipZ 7clIwaiB8pEsEeOvWmWBw xbFxwbGFpblxmMVxmczE2 OIbeexnnHFKrCNysF0faB aEbFNLikMsyQWqoq2BcJK OiDPSxWRMkRLoiB9yxdZ6 qgttgGPckJUHxaTgcw8zp XwCkkXM0CW7ykwShERCvw UwqvoB8cyKrjQavrW8jvM 8qsCknoK2baZCteBW7hyb sIGluIHNpdHUgaHlicmlk yZrpcIohglmnsY3tWYY8m LFlSDF3rHHoGSOtFBTfQM CgpL46dl1ziHUpbrLdU5L hH0GcaNBchMwxUzfjfFBu mHZnPb8xlYQvHT8nYYHrj RQwT9VyOY2aEWRrawvwSX IgVGhlIHVzZSBvZiBvbmU su5ZseE7qHVGqDEPxUT40 xpJithR1mTSgGPBxymOiv GVzdHMgaXMgcmVndWxhdG KhXNGxZQItPSNtIRv9tSD ku1XgU6tuzCEnjtXeT2Jl dDZcHMQCUW3mRNvey0Mvj KQarYZjf2HpUTAjJOHfmS 4mSKAeWN5wBSGiNQgfWIT pkoTmur1razDiOMGrXLDi U1IfvbtmsJumvtLjPUJou q2onhZwKMU5EMSxLRKdfX eicOSnqJSwYEKohcK3h3H lIIVlx6DyH1BxtZNuDWPc fMTzPKW7a5EdxL0uCZpfk FDgAQOdTR6brQPoPPXySJ NsZWFyZWQgYnkgdGhlIFV BPYYst8ZyVS6yWMJmrUxn TCHubL7mr3UfYPSve84nO EZEQSkuIFRoZSBGREEgaG FzIGRldGVybWluZWQgdGh gxOKmoCItFUAkSTUyQD1n XWArnhQluQSka6LbsHPmb iTbj9ZaioWzRVTrEJM7Fv BccGFyXHBhciBBbGwgaW1 jdF0tm5YxdE3dHIxlheIi zQReQm1uqMAiFT4oDWHio mFmZmluIGVtYmVkZGVkIH Zxk1X3QK2nCESjde7fhhs jiCMmnN7wpXUtawGlHX4t MO8jP9C2wLQrPARihkJmw 8fkAKi7dAXuJSQtfWLbuP AyGlzyFEM8RWFoXYQ4qjL rluJfCCAekLlvrIN7fMNz YKYjPAPwBBViGF94T5Xhk 5YsV6gwPK43ITLgOLRbDH RezpUew7edRCWkc4cfKCD idXDmG8AuCQScxCTvzbyh ZtKmJUN7OLJhJJV7xENuY XKsU3QsxANqlQPihZ83ZY 6vdDG9ZU8cRXG9RAiiiP5 nHwKTaA19fn4iyBH4v8Eg NA4dW5WkKOJyl7H4nlOwH OXiJR4eiUJiCKXoRAOpxE lkYXRlZCBvbiBkZWNhbGN qRtnyMZM6rCLvqAJmYlQD ORB7aYWtBFFgf4XdUQZeB TBzeuHiawEhVASkRKL5bM ZoMNZgsLJcu66eW1g6SM9 vqPuoEUAepBRpBRIqz2Ua sUByaMi6bTFlHzHiOVwtZ LUcOWvjnJo4wHX6VQ4vTV XiW7KcT3jnkJUqJGIbWEC aoCSpwu9adFWupM== [employer]: Gross Description u5gjuNBoHOKajBBiZJAv M CoxuiZbJOSlsSJaB7Uxse ycNYfvPI0dFN1wzSgymVO yaLHsGBFgJkNyg8lqt348 oZMar6ieMXNJSQiyGDOLF Rk7qCafB03ar6B3YbioH4 4hdJIlONK1AJOoCWJwmYA aIQTkEHL7FAQhoOLrH0oo OBJqCF0jmeztUQplFIgoX NNvbDG5LZQnoUAnO5FuGM GeXSczCTSqclh7AkFiQh0 vdGVyeTcyMFxwYXJkXHBs LTcsCVHsBpLwIxKsLPr6V QBrwZ0mXa3iwPBxfJ8oyV ExFTeaNWDyhQQrnMYfg3B oaWFsIGJvbmUiIGlzIGEg kDnaic0pKIJioS6diImsy oXeUkOgh46bMIMjCCWxpN Nvn5WhAMSrDH96CYbcXL2 0GFdfMD7mNWZsAcDrCKys IHNwZWNpbWVuIGlzIGVud KnrFYh3EMI7Nt5wqZBeDM PpfyGehpBlV2Qqq0T3hJX wQFTAm2ElPeHoYd6oCGWo YWwgaXMgbmVlZGVkIGZvc mS5vFBdi2PuM3szYN8wKQ BccGFyfQ== [employer] Phone: Pathologist Interpretation Location [facility], [address] [place] [address], [facility] [address], CLIA: [id number]; Joint Commission: [id number] [id number]; CAP: [id number] [employer] Phone: Pathology report final diagnosis Narrative u9qgrYTpJTEljQNsKJXtN WtaydTiRQCwoYPqM8Ijdn eaMYosHH8yNC6jkEdudAV fpPZzIKNkHmTeh0pbw039 pXFtd9vrGRACBEmnADSJB Os2lFcsY12xh3Y4NouzJ4 0xsCAdDEW7EFLuEHZhfZX aRGYcRXR6DILucRNnU6dz MFKiLZ3tefftTFvqSRucG YLmwED8ZMWfpICkU9TwMY ViLYbtPDNwdxp9VxSuRz4 vdGVyeTcyMFxwYXJkXHBs YWluXGZzMjAgTEVGVCBJU 8YNSBIQFODDStJpVHSHN8 BTWTpccGFyXGVuZGFzaCA fNQ6CYYRGXXHyO7KIYxWD WTMDU44pYJeOP2HTQJNKU MYCLKBOOZ5VTAOBXnCMV3 0gM0WlWf5IAVJDAMWPIQX QVfzRA2QKUTENX0MJHLXZ S6TDL44ZYGdXVFeKOlmdH XJ9 [facility] Work Phone: [facility] Work Phone: 30on 04-24-2025 30 Problem: Pain [...] and maintained or improved Outcome: Progressing Normal [facility] [id number] 04-24-2025 [id number] [facility] transportation. SW reviewed chart. Pt is a [facility] resident of [facility]. [place] is responsible for pt transportation for medical appointments. . Normal [facility] BASIC METABOLIC PANELon 07-2 Anion gap [Moles/Vol] 8 mmol/L Normal 3-13 [facility] Comment on above: Performed By: #### L [id number] #### Reservations Agent: BIANCA NICHOLS ([id number]) [facility] ([facility]) [address] [place] [address] [place] Calcium [Mass/Vol] 8.4 mg/dL Low 8.8-10.0 [facility] Comment on above: Performed By: #### L [id number] #### Reservations Agent: BIANCA NICHOLS ([phone]) [facility] [address] [place] [address] [place] Chloride [Moles/Vol] 101 mmol/L Normal 98-107 [facility] Comment on above: Performed By: #### L [id number] #### Reservations Agent: BIANCA NICHOLS ([phone]) [facility] [address] [place] [address] [place] CO2 [Moles/Vol] 27 mmol/L Normal 23-31 [facility] Comment on above: Performed By: #### L [id number] #### Reservations Agent: BIANCA NICHOLS ([phone]) [facility] ([facility]) [address] [place] [address] Creatinine [Mass/Vol] 0.59 mg/dL Low 0.72-1.25 [facility] Comment on above: Performed By: #### L [id number] #### Reservations Agent: BIANCA NICHOLS ([phone]) [facility] [address] [place] [address] GLOMERULAR FILTRATION RATE ML/MIN/1.73 SQ M.PREDICTED >90.0 Normal >60.0 [facility] Comment on above: Result Comment: Calc ulation based on the Chronic Kidney Disease Epidemiology Collaboration (CKD-EPI) equation refit without adjustment for race Performed By: #### L [id number] #### Reservations Agent: BIANCA NICHOLS ([id number]) [facility] ([facility]) [address] [place] [address] Glucose [Mass/Vol] 113 mg/dL Normal 82-115 [facility] Comment on above: Performed By: #### L [id number] #### Reservations Agent: BIANCA NICHOLS ([phone]) [facility]) [address] [place] [address] Potassium [Moles/Vol] 4.0 mmol/L Normal 3.5-5.1 [facility] Comment on above: Result Comment: [facility] potassium values may be up to 0.5 mmol/L lower than serum values. Performed By: #### L [id number] #### Reservations Agent: BIANCA NICHOLS ([phone]) [facility] [address] [place] [address] [place] Sodium [Moles/Vol] 136 mmol/L Normal 136-145 [facility] Comment on above: Performed By: #### L [id number] #### Reservations Agent: BIANCA NICHOLS ([phone]) [facility] [address] [place] [address] [place] Urea nitrogen [Mass/Vol] 7 mg/dL Low - [facility] Comment on above: Performed By: #### L [id number] #### Reservations Agent: BIANCA NICHOLS ([id number]) [facility] ([facility]) [address] [place] [address] Basic metabolic 1998 panelon 04-24-2025 Anion gap [Moles/Vol] 8 mmol/L 3 - 13 mmol/L [facility] Calcium [Mass/Vol] 8.4 mg/dL Low 8.8 - 10. 0 mg/dL [facility] Chloride [Moles/Vol] 101 mmol/L 98 - 10 7 mmol/L [facility] CO2 [Moles/Vol] 27 mmol/L 23 - 31 mmol/L [facility] Creatinine [Mass/Vol] 0.59 mg/dL Low 0.72 - 1.25 mg/dL [facility] GFR/1.73 sq M.predicted (S/P/Bld) [Vol rate/Area] - PINF [facility] Comment on above: Calculation based on the Chronic Kidney Disease Epidemiology Collaboration (CKD-EPI) equation refit without adjustment for race Glucose [Mass/Vol] 113 mg/dL 82 - 115 mg/dL [facility] Interpretation and review of laboratory results Abnormal [facility] Potassium [Moles/Vol] 4 mmol/L 3.5 - 5.1 mmol/L [facility] Comment on above: Plasma potassium leonie ues may be up to 0.5 mmol/L lower than serum values. Sodium [Moles/Vol] 136 mmol/L 136 - 145 mmol/L [facility] Urea nitrogen [Mass/Vol] 7 mg/dL Low 9 - 23 mg/dL [facility] CBC W Auto Differential pane l (Bld)on 04-24-2025 Basophils (Bld) [#/Vol] 0.1 10*3/uL 0.0 - 0.2 10*3/uL [facility] Basophils/100 WBC (Bld) 0.6 % 0.0 - 2.0 % [facility] Eosinophils (Bld) [#/Vol] 0.4 10*3/uL 0.0 - 0.5 10*3/uL [facility] Eosinophils/100 WBC (Bld) 4 % 0.0 - 6.0 % [facility] Erythrocyte distribution width (RBC) [Ratio] 14.9 % 11.5 - 15.0 % [facility] Hematocrit (Bld) [Volume fraction] 32.8 % Low 40.0 - 52.0 % [facility] Hemoglobin (Bld) [Mass/Vol] 10.6 g/dL Low 13.0 - 18.0 g/dL [facility] Immature granulocytes (Bld) [#/Vol] 0 10*3/uL NINF - 0.1 10*3/uL [facility] Immature granulocytes/100 WBC (Bld) 0.4 % 0.0 - 2.0 % [facility] Interpretation and review of laboratory results Abnormal [facility] Lymphocytes (Bld) [#/Vol] 2.2 10*3/uL 1.0 - 4.3 10*3/uL [facility] Lymphocytes/100 WBC (Bld) 23.9 % 15.0 - 45.0 % [facility] MCH (RBC) [Entitic mass] 28.8 pg 26. 0 - 34.0 pg [facility] MCHC (RBC) [Mass/Vol] 32.3 % 30.5 - 36.0 % [facility] MCV (RBC) [Entitic vol] 89.1 fL 77.0 - 99.0 fL [facility] Monocytes (Bld) [#/Vol] 0.7 10*3/uL 0.0 - 0.9 10*3/uL [facility] Monocytes/100 WBC (Bld) 8 % 5.0 - 13.0 % [facility] Neutrophils (Bld) [#/Vol] 5.9 10*3/uL 1.8 - 7.5 10*3/uL [facility] Neutrophils/100 WBC (Bld) 63.1 % 38.0 - 82.0 % [facility] Nucleated RBC/100 WBC (Bld) [Ratio] 0 % [facility] Platelet mean volume (Bld) [Entitic vol] 9.8 fL 9.0 - 12.7 fL [facility] Platelets (Bld) [#/Vol] 367 10*3/uL 140 - 440 10*3/uL [facility] RBC (Bld) [#/Vol] 3.68 10*6/uL Low 4.40 - 5.9 0 10*6/uL [facility] WBC (Bld) [#/Vol] 9.3 10*3/uL 3.6 - 10.7 10*3/uL [facility] CBC WITH AUTO DIFFERENTIALon 04-24-2025 Basophils (Bld) [#/Vol] 0.1 10*3/uL Normal 0.0-0.2 [facility] Comment on above: Performed By: #### L [id number] ####Reservations Agent: BIANCA NICHOLS ([id number])[facility] ([facility])[address] [place] [address] Basophils/100 WBC (Bld) 0.6 % Normal 0.0-2.0 [facility] Comment on above: Performed By: #### L [id number] ####Reservations Agent: BIANCA NICHOLS ([phone])[facility])[address] [place] [address] Eosinophils (Bld) [#/Vol] 0.4 10*3/uL Normal 0.0-0.5 [facility] Comment on above: Performed By: #### L [id number] ####Reservations Agent: BIANCA NICHOLS ([phone])[facility] ([facility])[address] [place] [address] Eosinophils/100 WBC (Bld) 4.0 % Normal 0.0-6.0 [facility] Comment on above: Performed By: #### L [id number] ####Reservations Agent: BIANCA NICHOLS ([phone])[facility])[address] [place] [address] Erythrocyte distribution width (RBC) [Ratio] 14.9 % Normal 11.5-15.0 [facility] Comment on above: Performed By: #### L [id number] ####Reservations Agent: BIANCA NICHOLS ([phone])[facility])[address] [place] [address] Hematocrit (Bld) [Volume fraction] 32.8 % Low 40.0-52.0 [facility] Comment on above: Performed By: #### L [id number] ####Reservations Agent: BIANCA NICHOLS ([id number])[facility])[address] [place] [address] Hemoglobin (Bld) [Mass/Vol] 10.6 g/dL Low 13.0-18.0 [facility] Comment on above: Performed By: #### L [id number] ####Reservations Agent: BIANCA NICHOLS ([id number])[facility])[address] [place] [address] IMMATURE GRANS % 0.4 % Normal 0.0-2.0 [facility] Comment on above: Performed By: #### L [id number] ####Reservations Agent: BIANCA NICHOLS ([phone])[address] IMMATURE GRANS ABSOLUTE 0.0 10*3/uL Normal <0.1 [facility] Comment on above: Performed By: #### L [id number] ####Reservations Agent: BIANCA NICHOLS ([phone])[facility])[address] [place] [address] Lymphocytes (Bld) [#/Vol] 2.2 10*3/uL Normal 1.0-4.3 [facility] Comment on above: Performed By: #### L [id number] ####Reservations Agent: BIANCA NICHOLS ([phone])[address] Lymphocytes/100 WBC (Bld) 23.9 % Normal 15.0-45.0 [facility] Comment on above: Performed By: #### L [id number] ####Reservations Agent: BIANCA NICHOLS ([phone])[address] MCH (RBC) [Entitic mass] 28.8 pg Normal 26.0-34.0 [facility] Comment on above: Performed By: #### L [id number] ####Reservations Agent: BIANCA NICHOLS ([phone])[facility])[address] [place] [address] MCHC 32.3 % Normal 30.5-36.0 [facility] Comment on above: Performed By: #### L [id number] ####Reservations Agent: BIANCA NICHOLS ([phone])[facility] ([facility])[address] [place] [address] MCV (RBC) [Entitic vol] 89.1 fL Normal 77.0-99.0 [facility] Comment on above: Performed By: #### L [id number] ####Reservations Agent: BIANCA NICHOLS ([phone])[facility] ([facility])[address] [place] [address] Monocytes (Bld) [#/Vol] 0.7 10*3/uL Normal 0.0-0.9 [facility] Comment on above: Performed By: #### L [id number] ####Reservations Agent: BIANCA NICHOLS ([phone])[facility] ([facility])[address] [place] [address] Monocytes/100 WBC (Bld) 8.0 % Normal 5.0-13.0 [facility] Comment on above: Performed By: #### L [id number] ####Reservations Agent: BIANCA NICHOLS ([id number])[facility] ([facility])[address] [place] [address] NEUTROPHILS ABSOLUTE 5.9 10*3/uL Normal 1.8-7.5 [facility] Comment on above: Performed By: #### L [id number] ####Reservations Agent: BIANCA NICHOLS ([id number])[facility] ([facility])[address] [place] [address] Neutrophils/100 WBC (Bld) 63.1 % Normal 38.0-82.0 [facility] Comment on above: Performed By: #### L [id number] ####Reservations Agent: BIANCA NICHOLS ([phone])[facility] ([facility])[address] [place] [address] NRBC 0.0 /100 WBCs Normal 0.0-2.0 [facility] Comment on above: Performed By: #### L [id number] ####Reservations Agent: BIANCA NICHOLS ([phone])[facility] ([facility])[address] [place] [address] Platelet mean volume (Bld) [Entitic vol] 9.8 fL Normal 9.0-12.7 [facility] Comment on above: Performed By: #### L [id number] ####Reservations Agent: BIANCA NICHOLS ([phone])[facility])[address] [place] [address] Platelets (Bld) [#/Vol] 367 10*3/uL Normal 140-440 [facility] Comment on above: Performed By: #### L [id number] ####Reservations Agent: BIANCA NICHOLS ([phone])[facility])[address] [place] [address] RBC (Bld) [#/Vol] 3.68 10*6/uL Low 4.40-5.90 [facility] Comment on above: Performed By: #### L [id number] ####Reservations Agent: BIANCA NICHOLS ([phone])[facility] ([facility])[address] [place] [address] WBC (Bld) [#/Vol] 9.3 10*3/uL Normal 3.6-10.7 [facility] Comment on above: Performed By: #### L [id number] ####Reservations Agent: BIANCA NICHOLS ([phone])[facility])[address] [place] [address] CULTURE ANAEROBICon 04-24-20 CULTURE ANAEROBIC ANAEROBIC CULTURE Reference No growth at 5 days [ S = SUSCEPTIBLE R = RESISTANT I = INTERMEDIATE S-DD = Susceptible-dose dependent NS = Non-susceptible NO = No Interpretation ] Normal [facility] Comment on above: Performed By: #### L [id number] #### Reservations Agent: BIANCA NICHOLS ([phone]) [facility]) [address] [place] [address] CULTURE ANAEROBIC ANAEROBIC CULTURE Reference Mixed aerobic and anaerobic bacteria present. CLOSTRIDIUM RAMOSUM Few Clostridium ramosum (A) [ S = SUSCEPTIBLE R = RESISTANT I = INTERMEDIATE S-DD = Susceptible-dose dependent NS = Non-susceptible NO = No Interpretation ] Normal [facility] Comment on above: Performed By: #### L [id number] #### Reservations Agent: BIANCA NICHOLS ([phone]) [address] CULTURE, AEROBIC BACTERIA WI GRAM STAINon 04-24-2025 CULTURE, AEROBIC BACTERIA WITH [...] Non-susceptible NO = No Interpretation ] Normal [facility] Comment on above: Performed By: #### L [id number] #### Reservations Agent: BIANCA NICHOLS ([id number]) [address] CULTURE, AEROBIC BACTERIA WITH GRAM STAIN CULTURE [...] Non-susceptible NO = No Interpretation ] Normal [facility] Comment on above: Performed By: #### L [id number] #### Reservations Agent: BIANCA NICHOLS ([id number]) [facility] ([facility]) [address] [place] [address] Laboratory - Chemistry and C hemistry - challengeon 04-24-2025 Glucose [Mass/Vol] 348 mg/dL High 70 - 100 mg/dL [facility] Glucose [Mass/Vol] 407 mg/dL High 70 - 100 mg/dL [facility] Glucose [Mass/Vol] 259 mg/dL High 70 - 100 mg/dL [facility] Glucose [Mass/Vol] 135 mg/dL High 70 - 100 mg/dL [facility] Glucose [Mass/Vol] 126 mg/dL High 70 - 100 mg/dL [facility] Laboratory - Drug toxicology on 04-24-2025 Vancomycin trough [Mass/Vol] 12 ug/mL [facility] No Panel Informationon 04-24 Interpretation and review of laboratory results Abnormal [facility] Performed by: [address] [address] CLIA ID: [id number] [facility] Interpretation and review of laboratory results Abnormal [facility] Performed by: [address] [address] CLIA ID: [id number] [facility] Interpretation and review of laboratory results Abnormal [facility] Performed by: [address] [address] CLIA ID: [id number] [facility] Interpretation and review of laboratory results Abnormal [facility] Performed by: [address] [address] CLIA ID: [id number] [facility] Interpretation and review of laboratory results Abnormal [facility] Performed by: [address] [address] CLIA ID: [id number] [facility] Nursing Noteon 04-24-2025 Nursing Note Patient states nobod y here to update Normal [facility] Op Noteon 04-24-2025 Op Note - Attestation signed by Kaela Durand MD at 04/26/2025 4:55 PM I attest that I was present and supervised the entire procedure. I agree with the operative details as documented in the resident's note. Excisional debridement of necrotic ischial wound, total wound measurement 7 x 4 cm = 28 cm2 [CPT 86276, 73881] Open biopsy of left ischium [CPT 68878] This note is electronically signed by: Kaela [...] achieved with bovie electrocautery. Two pieces of Knox patch were placed in the wound bed. Betadine soak Kerlix was then packed in the wound. Dressings were applied overtop. The sponge, instrument and needle counts were correct at the end of the case. The patient was extubated and transferred to PACU in stable condition. 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 Nurse states she ordered [...] (kg): 82.41 kg Total Energy Requirements (kcals/day): 2781-4043 (25-30 kcals/kg) Weight Used for Protein Requirements: [...] MAP (mmHg): (more content not included)... Normal [facility] Progress Note Patient out of room at time of visit Wound care to follow up at a later time JOE Diaz CNP Normal [facility] Progress Note - Attestation signed by Kaela [...] of Trauma Department of Surgery [facility] [1] Patient Active Problem List Diagnosis [...] other site (HCC) Department of General Surgery Daily Progress Note ADMIT DATE: 04/21/2025 TODAY'S DATE: 04/24/2025 HPI: Anmol Reynolds is a 64 y.o. male with significant past medical history of paraplegia s/p surgical complication with Dr. Ashley at [facility], HLD, HTN, MDD, OA, a-fib on eliquis, chronic sacral wounds who presents from his half-way after he states the nurses have become [...] 24 hours) (more content not included)... Normal [facility] VANCOMYCIN, AUC TIMED DOSING on 04-24-2025 VANCOMYCIN, AUC 12.0 ug/mL Normal [facility] Comment on above: Result Comment: [facility] COMMENTS: Please draw random level at least >2 hours after the end of the last vancomycin infusion, or 30-minutes before next infusion. Toxicity is seen at concentrations >80-100 ug/mL Therapeutic (Peak) range: 20-40 Therapeutic (Trough) range: 5-10 Performed By: #### L [id number] #### Reservations Agent: BIANCA NICHOLS ([id number]) [facility] [address] [place] [address] Vancomycin trough [Mass/Vol] on 04-24-2025 Toxicity is seen at concentrations >80-100 ug/mL Therapeutic (Peak) range: 20-40 Therapeutic (Trough) range: 5-10 [facility] 30on 04-23-2025 30 Problem: Pain - Adul t Goal: Verbalizes/displays adequate comfort level or baseline comfort level Outcome: Progressing Problem: Safety - Adult Goal: Free from fall injury Outcome: Progressing Problem: Chronic Conditions and Co-morbidities Goal: Patient's chronic conditions and co-morbidity symptoms are monitored and maintained or improved Outcome: Progressing Normal [facility] 30 Problem: Pain - Adul t Goal: [...] and maintained or improved Outcome: Progressing Normal [facility] BASIC METABOLIC PANELon 07-2 0-2024 Anion gap [Moles/Vol] 7 mmol/L Normal 3-13 [facility] Comment on above: Performed By: #### L [id number] #### Reservations Agent: BIANCA NICHOLS ([phone]) [facility] ([facility]) [address] [place] [address] Calcium [Mass/Vol] 8.1 mg/dL Low 8.8-10.0 [facility] Comment on above: Performed By: #### L [id number] #### Reservations Agent: BIANCA NICHOLS ([id number]) [facility] [address] [place] [address] Chloride [Moles/Vol] 105 mmol/L Normal 98-107 [facility] Comment on above: Performed By: #### L [id number] #### Reservations Agent: BIANCA NICHOLS ([id number]) [facility] [address] [place] [address] CO2 [Moles/Vol] 21 mmol/L Low 23-31 [facility] Comment on above: Performed By: #### L [id number] #### Reservations Agent: BIANCA NICHOLS ([phone]) [facility] [address] [place] [address] Creatinine [Mass/Vol] 0.54 mg/dL Low 0.72-1.25 [facility] Comment on above: Performed By: #### L [id number] #### Reservations Agent: BIANCA NICHOLS ([id number]) [facility] [address] [place] [address] GLOMERULAR FILTRATION RATE ML/MIN/1.73 SQ M.PREDICTED >90.0 Normal >60.0 [facility] Comment on above: Result Comment: Calc ulation based on the Chronic Kidney Disease Epidemiology Collaboration (CKD-EPI) equation refit without adjustment for race Performed By: #### L [id number] #### Reservations Agent: BIANCA NICHOLS ([id number]) [facility] [address] [place] [address] [place] Glucose [Mass/Vol] 133 mg/dL High 82-115 [facility] Comment on above: Performed By: #### L [id number] #### Reservations Agent: BIANCA NICHOLS ([phone]) [facility]) [address] [place] [address] Potassium [Moles/Vol] 3.8 mmol/L Normal 3.5-5.1 [facility] Comment on above: Result Comment: [facility] potassium values may be up to 0.5 mmol/L lower than serum values. Performed By: #### L [id number] #### Reservations Agent: BIANCA NICHOLS ([phone]) [facility] ([facility]) [address] [place] [address] Sodium [Moles/Vol] 133 mmol/L Low 136-145 [facility] Comment on above: Performed By: #### L [id number] #### Reservations Agent: BIANCA NICHOLS ([id number]) [facility] ([facility]) [address] [place] [address] Urea nitrogen [Mass/Vol] 8 mg/dL Low 9-23 [facility] Comment on above: Performed By: #### L [id number] #### Reservations Agent: BIANCA NICHOLS ([phone]) [facility]) [address] [place] [address] Basic metabolic 1998 panelon 04-23-2025 Anion gap [Moles/Vol] 7 mmol/L 3 - 13 mmol/L [facility] Calcium [Mass/Vol] 8.1 mg/dL Low 8.8 - 10. 0 mg/dL [facility] Chloride [Moles/Vol] 105 mmol/L 98 - 10 7 mmol/L [facility] CO2 [Moles/Vol] 21 mmol/L Low 23 - 31 mmol/L [facility] Creatinine [Mass/Vol] 0.54 mg/dL Low 0.72 - 1.25 mg/dL [facility] GFR/1.73 sq M.predicted (S/P/Bld) [Vol rate/Area] - PINF [facility] Comment on above: Calculation based on the Chronic Kidney Disease Epidemiology Collaboration (CKD-EPI) equation refit without adjustment for race Glucose [Mass/Vol] 133 mg/dL High 82 - 115 mg/dL [facility] Center Interpretation and review of laboratory results Abnormal [facility] Potassium [Moles/Vol] 3.8 mmol/L 3.5 - 5.1 mmol/L [facility] Comment on above: Plasma potassium leonie ues may be up to 0.5 mmol/L lower than serum values. Sodium [Moles/Vol] 133 mmol/L Low 136 - 145 mmol/L [facility] Urea nitrogen [Mass/Vol] 8 mg/dL Low 9 - 23 mg/dL [facility] CBC W Auto Differential pane l (Bld)on 04-23-2025 Basophils (Bld) [#/Vol] 0.1 10*3/uL 0.0 - 0.2 10*3/uL [facility] Basophils/100 WBC (Bld) 0.5 % 0.0 - 2.0 % [facility] Eosinophils (Bld) [#/Vol] 0.3 10*3/uL 0.0 - 0.5 10*3/uL [facility] Eosinophils/100 WBC (Bld) 3.6 % 0.0 - 6.0 % [facility] Erythrocyte distribution width (RBC) [Ratio] 14.9 % 11.5 - 15.0 % [facility] Hematocrit (Bld) [Volume fraction] 30.7 % Low 40.0 - 52.0 % [facility] Hemoglobin (Bld) [Mass/Vol] 9.9 g/dL Low 13.0 - 18.0 g/dL [facility] Immature granulocytes (Bld) [#/Vol] 0 10*3/uL NINF - 0.1 10*3/uL [facility] Immature granulocytes/100 WBC (Bld) 0.4 % 0.0 - 2.0 % [facility] Interpretation and review of laboratory results Abnormal [facility] Lymphocytes (Bld) [#/Vol] 2.2 10*3/uL 1.0 - 4.3 10*3/uL [facility] Lymphocytes/100 WBC (Bld) 23.6 % 15.0 - 45.0 % [facility] MCH (RBC) [Entitic mass] 28.5 pg 26. 0 - 34.0 pg [facility] MCHC (RBC) [Mass/Vol] 32.2 % 30.5 - 36.0 % [facility] MCV (RBC) [Entitic vol] 88.5 fL 77.0 - 99.0 fL [facility] Monocytes (Bld) [#/Vol] 0.8 10*3/uL 0.0 - 0.9 10*3/uL [facility] Monocytes/100 WBC (Bld) 8.7 % 5.0 - 13.0 % [facility] Neutrophils (Bld) [#/Vol] 5.9 10*3/uL 1.8 - 7.5 10*3/uL [facility] Neutrophils/100 WBC (Bld) 63.2 % 38.0 - 82.0 % [facility] Nucleated RBC/100 WBC (Bld) [Ratio] 0 % [facility] Platelet mean volume (Bld) [Entitic vol] 9.7 fL 9.0 - 12.7 fL [facility] Platelets (Bld) [#/Vol] 352 10*3/uL 140 - 440 10*3/uL [facility] RBC (Bld) [#/Vol] 3.47 10*6/uL Low 4.40 - 5.9 0 10*6/uL [facility] WBC (Bld) [#/Vol] 9.4 10*3/uL 3.6 - 10.7 10*3/uL [facility] CBC WITH AUTO DIFFERENTIALon 04-23-2025 Basophils (Bld) [#/Vol] 0.1 10*3/uL Normal 0.0-0.2 [facility] Comment on above: Performed By: #### L [id number] #### Reservations Agent: BIANCA NICHOLS ([id number]) [facility] ([facility]) [address] [place] [address] Basophils/100 WBC (Bld) 0.5 % Normal 0.0-2.0 [facility] Comment on above: Performed By: #### L [id number] #### Reservations Agent: BIANCA NICHOLS ([phone]) [facility] [address] [place] [address] Eosinophils (Bld) [#/Vol] 0.3 10*3/uL Normal 0.0-0.5 [facility] Comment on above: Performed By: #### L [id number] #### Reservations Agent: BIANCA NICHOLS ([phone]) [facility]) [address] [place] [address] Eosinophils/100 WBC (Bld) 3.6 % Normal 0.0-6.0 [facility] Comment on above: Performed By: #### L [id number] #### Reservations Agent: BIANCA NICHOLS ([phone]) [facility]) [address] [place] [address] Erythrocyte distribution width (RBC) [Ratio] 14.9 % Normal 11.5-15.0 [facility] Comment on above: Performed By: #### L [id number] #### Reservations Agent: BIANCA NICHOLS ([phone]) [facility]) [address] [place] [address] Hematocrit (Bld) [Volume fraction] 30.7 % Low 40.0-52.0 [facility] Comment on above: Performed By: #### L [id number] #### Reservations Agent: BIANCA NICHOLS ([phone]) [facility]) [address] [place] [address] Hemoglobin (Bld) [Mass/Vol] 9.9 g/dL Low 13.0-18.0 [facility] Comment on above: Performed By: #### L [id number] #### Reservations Agent: BIANCA NICHOLS ([phone]) [facility]) [address] [place] [address] IMMATURE GRANS % 0.4 % Normal 0.0-2.0 [facility] Comment on above: Performed By: #### L [id number] #### Reservations Agent: BIANCA NICHOLS ([id number]) [facility]) [address] [place] [address] IMMATURE GRANS ABSOLUTE 0.0 10*3/uL Normal <0.1 [facility] Comment on above: Performed By: #### L [id number] #### Reservations Agent: BIANCA NICHOLS ([id number]) [facility]) [address] [place] [address] [place] Lymphocytes (Bld) [#/Vol] 2.2 10*3/uL Normal 1.0-4.3 [facility] Comment on above: Performed By: #### L [id number] #### Reservations Agent: BIANCA NICHOLS ([id number]) [facility]) [address] [place] [address] Lymphocytes/100 WBC (Bld) 23.6 % Normal 15.0-45.0 [facility] Comment on above: Performed By: #### L [id number] #### Reservations Agent: BIANCA NICHOLS ([phone]) [facility] ([facility]) [address] [place] [address] MCH (RBC) [Entitic mass] 28.5 pg Normal 26.0-34.0 [facility] Comment on above: Performed By: #### L [id number] #### Reservations Agent: BIANCA NICHOLS ([phone]) [facility]) [address] [place] [address] MCHC 32.2 % Normal 30.5-36.0 [facility] Comment on above: Performed By: #### L [id number] #### Reservations Agent: BIANCA NICHOLS ([phone]) [facility]) [address] [place] [address] MCV (RBC) [Entitic vol] 88.5 fL Normal 77.0-99.0 [facility] Comment on above: Performed By: #### L [id number] #### Reservations Agent: BIANCA NICHOLS ([phone]) [facility]) [address] [place] [address] Monocytes (Bld) [#/Vol] 0.8 10*3/uL Normal 0.0-0.9 [facility] Comment on above: Performed By: #### L [id number] #### Reservations Agent: BIANCA NICHOLS ([id number]) [facility]) [address] [place] [address] Monocytes/100 WBC (Bld) 8.7 % Normal 5.0-13.0 [facility] Comment on above: Performed By: #### L [id number] #### Reservations Agent: BIANCA NICHOLS ([id number]) [facility] [address] [place] [address] NEUTROPHILS ABSOLUTE 5.9 10*3/uL Normal 1.8-7.5 [facility] Comment on above: Performed By: #### L [id number] #### Reservations Agent: BIANCA NICHOLS ([id number]) [facility] [address] [place] [address] Neutrophils/100 WBC (Bld) 63.2 % Normal 38.0-82.0 [facility] Comment on above: Performed By: #### L [id number] #### Reservations Agent: BIANCA NICHOLS ([phone]) [facility] ([facility]) [address] [place] [address] NRBC 0.0 /100 WBCs Normal 0.0-2.0 [facility] Comment on above: Performed By: #### L [id number] #### Reservations Agent: BIANCA NICHOLS ([id number]) [facility] [address] [place] [address] Platelet mean volume (Bld) [Entitic vol] 9.7 fL Normal 9.0-12.7 [facility] Comment on above: Performed By: #### L [id number] #### Reservations Agent: BIANCA NICHOLS ([phone]) [facility] ([facility]) [address] [place] [address] [place] Platelets (Bld) [#/Vol] 352 10*3/uL Normal 140-440 [facility] Comment on above: Performed By: #### L [id number] #### Reservations Agent: BIANCA NICHOLS ([id number]) [facility] ([facility]) [address] [place] [address] [place] RBC (Bld) [#/Vol] 3.47 10*6/uL Low 4.40-5.90 [facility] Comment on above: Performed By: #### L [id number] #### Reservations Agent: BIANCA NICHOLS ([phone]) [facility] ([facility]) [address] [place] [address] WBC (Bld) [#/Vol] 9.4 10*3/uL Normal 3.6-10.7 [facility] Comment on above: Performed By: #### L [id number] #### Reservations Agent: BIANCA NICHOLS ([phone]) [facility] ([facility]) [address] [place] [address] Laboratory - Chemistry and C hemistry - challengeon 04-23-2025 Glucose [Mass/Vol] 189 mg/dL High 70 - 100 mg/dL [facility] Glucose [Mass/Vol] 119 mg/dL High 70 - 100 mg/dL [facility] Glucose [Mass/Vol] 231 mg/dL High 70 - 100 mg/dL [facility] Glucose [Mass/Vol] 217 mg/dL High 70 - 100 mg/dL [facility] No Panel Informationon 04-23 Interpretation and review of laboratory results Abnormal [facility] Performed by: [address] [address] CLIA ID: [id number] [facility] Interpretation and review of laboratory results Abnormal [facility] Performed by: [address] [address] CLIA ID: [id number] [facility] Interpretation and review of laboratory results Abnormal [facility] Performed by: [address] [address] CLIA ID: [id number] [facility] Interpretation and review of laboratory results Abnormal [facility] Performed by: [place] [address] CLIA ID: [id number] [facility] 30on 04-22-2025 30 Problem: Pain - Adul t Goal: [...] and maintained or improved Outcome: Progressing Normal [facility] 30 Problem: Pain - Adul t Goal: Verbalizes/displays adequate comfort level or baseline comfort level Outcome: Progressing Problem: Safety - Adult Goal: Free from fall injury Outcome: Progressing Problem: Discharge Planning Goal: Discharge to home or other facility with appropriate resources Outcome: Progressing Problem: Chronic Conditions and Co-morbidities Goal: Patient's chronic conditions and co-morbidity symptoms are monitored and maintained or improved Outcome: Progressing [facility] 36on 04-22-2025 36 Name of Caller: Milady Contact Physician requesting Consult: Alberto Boogie AALIYAH / attending provider when ordered Dr. Georgette Bueno [phone] Patient Location (facility name, room, bed number): [facility] Room 465B Patient Diagnosis/Reason for Consult: Wound infection, on Cefepime Provider being paged: Dr. Alvarez Time page was sent: 8:29 AM Department of provider being paged: Infectious Disease Page Content: Received a call from [address] and spoke to Milady [phone] she was asked to send out a consult from Alberto Boogie AALIYAH / attending provider when ordered Dr. Georgette Beuno [phone], is requesting a consult. Information that was provided is: wound infection, on cefepime. PT in [facility] Room 465 B Message sent via Secure Chat [facility] CT PELVIS W IV CONTRASTon CT PELVIS W IV CONTRAST [facility] 1960 [id number] Exam Date/Time: 04/22/2025 00:01 Procedure: CT PELVIS [...] Electronically Signed Date/Time: 04/22/2025 12:31 AM EDT [facility] CT Pelvis W contrast Poli 1. [...] Electronically Signed Date/Time: 04/22/2025 12:31 AM [facility] Name[facility]OL[facility] 1960 [id number] Exam Date/Time: 04/22/2025 00:01 Procedure: CT PELVIS [...] gluteus muscles, and hip muscles (paralysis patient). [facility] Geneva Lunsford MD - 04/22/2025 Patient Name: ANMOL REYNOLDS : 1960 [facility]#: [id number] Exam Date/Time: 04/22/2025 00:01 Procedure: CT PELVIS [...] Electronically Signed Date/Time: 04/22/2025 12:31 AM EDT [facility] Radiology Study observation (narrative) [facility] alth CT Pelvis W contrast IVOrder ed By: Geneva Lunsford on 04-22-2025 [facility] Work Phone: Consulton 04-22-2025 Consult [facility] Medical Group - Infectious Diseases Attending Consult Note Reason for Consult: 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 History of Present Illness: 64 M with h/o MRSA lumbar epidural abscess from 2021, s/p decompression and fusion, but left paraplegic with neurogenic bladder. Recent hospitlaizaitons for PNA as well as [facility] Proteus UTI/ sepsis recently at [facility]. He had a sacral decubitus ulcer for years, was already improving but worsened since most recent prolonged hospitalization once more in February 2025. Buttock ulcer developed that time as well. Patient stabilized, completed IV antibiotics, and was doing well except at [facility] increased concern for worsening wound infection, [...] Resource Strain: Low Risk (04/24/2023) Received from [facility] Overall Financial Resource Strain (CARDIA) [...] atrophy to (more content not included)... Normal [facility] Consult - Attestation signed by Meliton Carrero [...] appropriate exam and evaluation Meliton Carrero MD, [facility] Trauma, Surgical Critical Care & Acute Care Surgery Division of Trauma Department of Surgery [facility] [1] Patient Active Problem List Diagnosis [...] Department of General Surgery Surgical Service - [facility] Resident Consult Note 04/22/2025 CHIEF COMPLAINT: Chief Complaint Patient presents with Wound Infection Per EMS pt was sent here from the [facility] for wound infections. Pt has two wound [...] s/p surgical complication with Dr. Ashley at [facility], HLD, HTN, MDD, OA, a-fib on eliquis, chronic sacral wounds who presents from his half-way after he states the nurses have become [...] Labs reviewed signific (more content not included)... [facility] Consult Pharmacy Managed Vancomycin Dosing Service [...] creatinine, and vancomycin levels interfaced automatically to [employer] and data has been analyzed and interpreted. [...] DATE: 04/22/25 TIME: 2:39 AM Nina Workman [facility] Clinical Pharmacist Available via Secure Chat Normal [facility] Laboratory - Chemistry and C hemistry - challengeon 04-22-2025 Glucose [Mass/Vol] 157 mg/dL High 70 - 100 mg/dL [facility] Glucose [Mass/Vol] 250 mg/dL High 70 - 100 mg/dL [facility] Glucose [Mass/Vol] 356 mg/dL High 70 - 100 mg/dL [facility] Glucose [Mass/Vol] 277 mg/dL High 70 - 100 mg/dL [facility] Average glucose Estimated from glycated hemoglobin (Bld) [Mass/Vol] 180 mg/dL [facility] Laboratory - Drug toxicology on 04-22-2025 Vancomycin trough [Mass/Vol] 12.4 ug/mL [facility] Laboratory - Hematology and Cell countson 04-22-2025 HbA1c (Bld) [Mass fraction] 7.9 % High NINF [facility] Comment on above: Normal less than 5.7 % Prediabetes 5.7% to 6.4% Diabetes 6.5% or higher --HgbA1C levels may not be accurate in patients who have renal disease, received recent blood transfusions, are anemic, or who have dyshemoglobinemia. No Panel Informationon 04-22 Interpretation and review of laboratory results Abnormal [facility] Performed by: [address] [address] CLIA ID: [id number] [facility] Interpretation and review of laboratory results Abnormal [facility] Performed by: [address] [address] CLIA ID: [id number] [facility] Interpretation and review of laboratory results Abnormal [facility] Performed by: [facility], [address] [place], [place] [id number] CLIA ID: [id number] [facility] Interpretation and review of laboratory results Abnormal [facility] Performed by: [facility], [address] [place] [address] CLIA ID: [id number] [facility] Interpretation and review of laboratory results Abnormal [facility] HbA1c values of 5.7-6.4 percent indicate an increased risk for developing diabetes mellitus. HbA1c values greater than or equal to 6.5 percent are diagnostic of diabetes mellitus. For diagnosis of diabetes in individuals without unequivocal hyperglycemia, results should be confirmed by repeat testing. [facility] VANCOMYCIN, AUC TIMED DOSING on 04-22-2025 VANCOMYCIN, AUC 12.4 ug/mL [facility] Comment on above: Result Comment: [facility] COMMENTS: Please draw random level at least >2 hours after the end of the last vancomycin infusion, or 30-minutes before next infusion. Toxicity is seen at concentrations >80-100 ug/mL Therapeutic (Peak) range: 20-40 Therapeutic (Trough) range: 5-10 Performed By: #### L [id number] ####Reservations Agent: BIANCA NICHOLS ([phone])[facility] ([facility])[address] [place] [address] Vancomycin trough [Mass/Vol] on 04-22-2025 Toxicity is seen at concentrations >80-100 ug/mL Therapeutic (Peak) range: 20-40 Therapeutic (Trough) range: 5-10 [facility] Wound Cultureon 04-22-2025 WC L BUTTOCKS Wound Culture Copy of report sent to Infection Control Printer [id number] 04/20/25 [facility]. Meth. resistant Staph. aureus Amount Growth 3+ [...] HARINDER <=2 S Ampicillin+Sulbac Islt HARINDER <=2 Cefepime Islt HARINDER <=0.12 S cefTRIAXone [...] SYN-S S Vancomycin Islt HARINDER <=0.5 Normal [facility] Comment on above: Performed By: #### L 500.2500, L100.0500 #### [facility] [address] [place], [address] BLOOD CULTUREon 04-21-2025 Bacteria identified Cx Nom (Bld) BLOOD CULTURE Reference No growth at 5 days ORDER COMMENTS: Blood Collection Site: Left PICC Purple Lumen [ S = SUSCEPTIBLE R = RESISTANT I = INTERMEDIATE S-DD = Susceptible-dose dependent NS = Non-susceptible NO = No Interpretation ] Normal [facility] Comment on above: Performed By: #### L [id number] #### Reservations Agent: BIANCA NICHOLS ([phone]) [facility] ([facility]) [address] [place] [address] Bacteria identified Cx Nom (Bld) BLOOD CULTURE Reference No growth at 5 days ORDER COMMENTS: Blood Collection Site: Right Forearm [ S = SUSCEPTIBLE R = RESISTANT I = INTERMEDIATE S-DD = Susceptible-dose dependent NS = Non-susceptible NO = No Interpretation ] Normal [facility] Comment on above: Performed By: #### L [id number] #### Reservations Agent: BIANCA NICHOLS ([id number]) [facility] [address] [place] [address] CBC W Auto Differential pane l (Bld)on 04-21-2025 Basophils (Bld) [#/Vol] 0.1 10*3/uL 0.0 - 0.2 10*3/uL [facility] Basophils/100 WBC (Bld) 0.6 % 0.0 - 2.0 % [facility] Eosinophils (Bld) [#/Vol] 0.3 10*3/uL 0.0 - 0.5 10*3/uL [facility] Eosinophils/100 WBC (Bld) 2.3 % 0.0 - 6.0 % [facility] Erythrocyte distribution width (RBC) [Ratio] 14.9 % 11.5 - 15.0 % [facility] Hematocrit (Bld) [Volume fraction] 35.6 % Low 40.0 - 52.0 % [facility] Hemoglobin (Bld) [Mass/Vol] 11.7 g/dL Low 13.0 - 18.0 g/dL [facility] Immature granulocytes (Bld) [#/Vol] 0.1 10*3/uL High NINF - 0.1 10*3/uL [facility] Immature granulocytes/100 WBC (Bld) 0.5 % 0.0 - 2.0 % [facility] Interpretation and review of laboratory results Abnormal [facility] Lymphocytes (Bld) [#/Vol] 2.3 10*3/uL 1.0 - 4.3 10*3/uL [facility] Lymphocytes/100 WBC (Bld) 18.1 % 15.0 - 45.0 % [facility] MCH (RBC) [Entitic mass] 29 pg 26. 0 - 34.0 pg [facility] MCHC (RBC) [Mass/Vol] 32.9 % 30.5 - 36.0 % [facility] MCV (RBC) [Entitic vol] 88.3 fL 77.0 - 99.0 fL [facility] Monocytes (Bld) [#/Vol] 1 10*3/uL High 0.0 - 0.9 10*3/uL [facility] Monocytes/100 WBC (Bld) 7.8 % 5.0 - 13.0 % [facility] Neutrophils (Bld) [#/Vol] 8.8 10*3/uL High 1.8 - 7.5 10*3/uL [facility] Neutrophils/100 WBC (Bld) 70.7 % 38.0 - 82.0 % [facility] Nucleated RBC/100 WBC (Bld) [Ratio] 0 % [facility] Platelet mean volume (Bld) [Entitic vol] 9.8 fL 9.0 - 12.7 fL [facility] Platelets (Bld) [#/Vol] 372 10*3/uL 140 - 440 10*3/uL [facility] RBC (Bld) [#/Vol] 4.03 10*6/uL Low 4.40 - 5.9 0 10*6/uL [facility] WBC (Bld) [#/Vol] 12.5 10*3/uL High 3.6 - 10.7 10*3/uL [facility] CBC WITH AUTO DIFFERENTIALon 04-21-2025 Basophils (Bld) [#/Vol] 0.1 10*3/uL Normal 0.0-0.2 [facility] Comment on above: Performed By: #### Mina DE LA [id number], [id number] ####Reservations Agent: BIANCA NICHOLS ([id number])[facility] ([facility])[address] [place] [address] Basophils/100 WBC (Bld) 0.6 % Normal 0.0-2.0 [facility] Comment on above: Performed By: #### Mina [id number], [id number] ####Reservations Agent: BIANCA NICHOLS ([phone])[facility] ([facility])[address] [place] [address] Eosinophils (Bld) [#/Vol] 0.3 10*3/uL Normal 0.0-0.5 [facility] Comment on above: Performed By: #### L [id number], [id number] ####Reservations Agent: BIANCA NICHOLS ([id number])[address] Eosinophils/100 WBC (Bld) 2.3 % Normal 0.0-6.0 [facility] Comment on above: Performed By: #### Mina [id number], [id number] ####Reservations Agent: BIANCA NICHOLS ([phone])[address] Erythrocyte distribution width (RBC) [Ratio] 14.9 % Normal 11.5-15.0 [facility] Comment on above: Performed By: #### Mina [id number], [id number] ####Reservations Agent: BIANCA NICHOLS ([id number])[address] Hematocrit (Bld) [Volume fraction] 35.6 % Low 40.0-52.0 [facility] Comment on above: Performed By: #### Mina [id number], [id number] ####Reservations Agent: BIANCA NICHOLS ([id number])[address] Hemoglobin (Bld) [Mass/Vol] 11.7 g/dL Low 13.0-18.0 [facility] Comment on above: Performed By: #### Mina [id number], [id number] ####Reservations Agent: BIANCA NICHOLS ([phone])[address] IMMATURE GRANS % 0.5 % Normal 0.0-2.0 [facility] Comment on above: Performed By: #### L [id number], [id number] ####Reservations Agent: BIANCA NICHOLS ([phone])[address] IMMATURE GRANS ABSOLUTE 0.1 10*3/uL High <0.1 [facility] Comment on above: Performed By: #### Mina [id number], [id number] ####Reservations Agent: BIANCA NICHOLS ([id number])[facility])[address] [place] [address] Lymphocytes (Bld) [#/Vol] 2.3 10*3/uL Normal 1.0-4.3 [facility] Comment on above: Performed By: #### Mina VOGEL, [id number] ####Reservations Agent: BIANCA NICHOLS ([phone])[facility])[address] [place] [address] Lymphocytes/100 WBC (Bld) 18.1 % Normal 15.0-45.0 [facility] Comment on above: Performed By: #### Mina VOGEL, [id number] ####Reservations Agent: BIANCA NICHOLS ([phone])[facility])[address] [place] [address] MCH (RBC) [Entitic mass] 29.0 pg Normal 26.0-34.0 [facility] Comment on above: Performed By: #### Mina [id number], [id number] ####Reservations Agent: BIANCA NICHOLS ([phone])[facility])[address] [place] [address] MCHC 32.9 % Normal 30.5-36.0 [facility] Comment on above: Performed By: #### Mina VOGEL, [id number] ####Reservations Agent: BIANCA NICHOLS ([phone])[facility])[address] [place] [address] MCV (RBC) [Entitic vol] 88.3 fL Normal 77.0-99.0 [facility] Comment on above: Performed By: #### L [id number], [id number] ####Reservations Agent: BIANCA NICHOLS ([phone])[facility])[address] [place] [address] Monocytes (Bld) [#/Vol] 1.0 10*3/uL High 0.0-0.9 [facility] Comment on above: Performed By: #### L [id number], [id number] ####Reservations Agent: BIANCA NICHOLS ([phone])[facility] ([facility])[address] [place] [address] Monocytes/100 WBC (Bld) 7.8 % Normal 5.0-13.0 [facility] Comment on above: Performed By: #### L [id number], [id number] ####Reservations Agent: BIANCA NICHOLS ([phone])[facility] ([facility])[address] [place] [address] NEUTROPHILS ABSOLUTE 8.8 10*3/uL High 1.8-7.5 [facility] Comment on above: Performed By: #### L [id number], [id number] ####Reservations Agent: BIANCA NICHOLS ([phone])[facility] ([facility])[address] [place] [address] Neutrophils/100 WBC (Bld) 70.7 % Normal 38.0-82.0 [facility] Comment on above: Performed By: #### Mina [id number], [id number] ####Reservations Agent: BIANCA NICHOLS ([phone])[facility] ([facility])[address] [place] [address] NRBC 0.0 /100 WBCs Normal 0.0-2.0 [facility] Comment on above: Performed By: #### L [id number], [id number] ####Reservations Agent: BIANCA NICHOLS ([phone])[facility] ([facility])[address] [place] [address] Platelet mean volume (Bld) [Entitic vol] 9.8 fL Normal 9.0-12.7 [facility] Comment on above: Performed By: #### L [id number], [id number] ####Reservations Agent: BIANCA NICHOLS ([id number])[facility] ([facility])[address] [place] [address] Platelets (Bld) [#/Vol] 372 10*3/uL Normal 140-440 [facility] Comment on above: Performed By: #### L [id number], [id number] ####Reservations Agent: BIANCA NICHOLS ([phone])[facility])[address] [place] [address] RBC (Bld) [#/Vol] 4.03 10*6/uL Low 4.40-5.90 [facility] Comment on above: Performed By: #### L [id number], [id number] ####Reservations Agent: BIANCA NICHOLS ([phone])[facility])[address] [place] [address] WBC (Bld) [#/Vol] 12.5 10*3/uL High 3.6-10.7 [facility] Comment on above: Performed By: #### L [id number], [id number] ####Reservations Agent: BIANCA NICHOLS ([phone])[facility])[address] [place] [address] COMPREHENSIVE METABOLIC PANE Antonio 04-21-2025 Albumin [Mass/Vol] 2.3 g/dL Low 3.4-4.8 [facility] Comment on above: Performed By: #### L [id number] ####Reservations Agent: BIANCA NICHOLS ([phone])[facility])[address] [place] [address] ALP [Catalytic activity/Vol] 116 U/L Normal 40-150 [facility] Comment on above: Performed By: #### L [id number] ####Reservations Agent: BIANCA NICHOLS ([phone])[facility])[address] [place] [address] ALT [Catalytic activity/Vol] 6 U/L Normal <40 [facility] Comment on above: Performed By: #### L AB17 ####Reservations Agent: BIANCA NICHOLS ([phone])[facility])[address] [place] [address] Anion gap [Moles/Vol] 10 mmol/L Normal 3-13 [facility] Comment on above: Performed By: #### L AB17 ####Reservations Agent: BIANCA NICHOLS ([phone])[facility] [place] [address] [place] AST [Catalytic activity/Vol] 13 U/L Normal <34 [facility] Comment on above: Performed By: #### L AB17 ####Reservations Agent: BIANCA NICHOLS ([phone])[facility] [place] [address] [place] Bilirubin [Mass/Vol] 0.5 mg/dL Normal <1.2 [facility] Comment on above: Performed By: #### L [id number] ####Reservations Agent: BIANCA NICHOLS ([phone])[facility] ([facility])[address] [place] [address] Calcium [Mass/Vol] 8.5 mg/dL Low 8.8-10.0 [facility] Comment on above: Performed By: #### L [id number] ####Reservations Agent: BIANCA NICHOLS ([phone])[facility])[address] [place] [place] [address] [place] Chloride [Moles/Vol] 99 mmol/L Normal 98-107 [facility] Comment on above: Performed By: #### L [id number] ####Reservations Agent: BIANCA NICHOLS ([phone])[facility] ([facility])[address] [place] [address] [place] CO2 [Moles/Vol] 21 mmol/L Low 23-31 [facility] Comment on above: Performed By: #### L [id number] ####Reservations Agent: BIANCA NICHOLS ([phone])[facility] [place] [address] [place] Creatinine [Mass/Vol] 0.65 mg/dL Low 0.72-1.25 [facility] Comment on above: Performed By: #### L [id number] ####Reservations Agent: BIANCA NICHOLS ([phone])[facility] [place] [place] [address] [place] GLOMERULAR FILTRATION RATE ML/MIN/1.73 SQ M.PREDICTED >90.0 Normal >60.0 [facility] Comment on above: Result Comment: Calc ulation based on the Chronic Kidney Disease Epidemiology Collaboration (CKD-EPI) equation refit without adjustment for race Performed By: #### L [id number] ####Reservations Agent: BIANCA NICHOLS ([phone])[facility])[address] [place] [address] Glucose [Mass/Vol] 202 mg/dL High 82-115 [facility] Comment on above: Performed By: #### L [id number] ####Reservations Agent: BIANCA NICHOLS ([phone])[facility])[address] [place] [address] Potassium [Moles/Vol] 4.3 mmol/L Normal 3.5-5.1 [facility] Comment on above: Result Comment: [facility] potassium values may be up to 0.5 mmol/L lower than serum values. Performed By: #### L [id number] ####Reservations Agent: BIANCA NICHOLS ([phone])[facility])[address] [place] [address] Protein [Mass/Vol] 7.6 g/dL Normal 6.4-8.3 [facility] Comment on above: Performed By: #### L [id number] ####Reservations Agent: BIANCA NICHOLS ([phone])[facility])[address] [place] [address] Sodium [Moles/Vol] 130 mmol/L Low 136-145 [facility] Comment on above: Performed By: #### L [id number] ####Reservations Agent: BIANCA NICHOLS ([phone])[facility])[address] [place] [address] Urea nitrogen [Mass/Vol] 10 mg/dL Normal 9-23 [facility] Comment on above: Performed By: #### L [id number] ####Reservations Agent: BIANCA NICHOLS ([phone])[facility])[address] [place] [address] CULTURE ANAEROBICon 04-21-20 25 CULTURE ANAEROBIC ANAEROBIC CULTURE (A ) Reference ANAEROBIC GRAM NEGATIVE BACILLI, NOT B. FRAGILIS Moderate Anaerobic Gram-negative bacilli, not B. fragilis (A) [ S = SUSCEPTIBLE R = RESISTANT I = INTERMEDIATE S-DD = Susceptible-dose dependent NS = Non-susceptible NO = No Interpretation ] Normal [facility] Comment on above: Performed By: #### L [id number] #### Reservations Agent: BIANCA NICHOLS ([phone]) [facility]) [address] [place] [address] CULTURE, AEROBIC BACTERIA WI GRAM STAINon 04-21-2025 CULTURE, AEROBIC BACTERIA WITH [...] Non-susceptible NO = No Interpretation ] Normal [facility] Comment on above: Performed By: #### L [id number] #### Reservations Agent: BIANCA NICHOLS ([phone]) [facility] ([facility]) [address] [place] [address] Comprehensive metabolic 1998 panelon 04-21-2025 Albumin [Mass/Vol] 2.3 g/dL Low 3.4 - 4.8 g/dL [facility] ALP [Catalytic activity/Vol] 116 U/L 40 - 150 U/L [facility] ALT [Catalytic activity/Vol] 6 U/L NINF - 40 U/L [facility] Anion gap [Moles/Vol] 10 mmol/L 3 - 13 mmol/L [facility] AST [Catalytic activity/Vol] 13 U/L NINF - 34 U/L [facility] Bilirubin [Mass/Vol] 0.5 mg/dL NINF - 1.2 mg/dL [facility] Calcium [Mass/Vol] 8.5 mg/dL Low 8.8 - 10. 0 mg/dL [facility] Chloride [Moles/Vol] 99 mmol/L 98 - 10 7 mmol/L [facility] CO2 [Moles/Vol] 21 mmol/L Low 23 - 31 mmol/L [facility] Creatinine [Mass/Vol] 0.65 mg/dL Low 0.72 - 1.25 mg/dL [facility] GFR/1.73 sq M.predicted (S/P/Bld) [Vol rate/Area] - PINF [facility] Comment on above: Calculation based on the Chronic Kidney Disease Epidemiology Collaboration (CKD-EPI) equation refit without adjustment for race Glucose [Mass/Vol] 202 mg/dL High 82 - 115 mg/dL [facility] Interpretation and review of laboratory results Abnormal [facility] Potassium [Moles/Vol] 4.3 mmol/L 3.5 - 5.1 mmol/L [facility] Comment on above: Plasma potassium leonie ues may be up to 0.5 mmol/L lower than serum values. Protein [Mass/Vol] 7.6 g/dL 6.4 - 8.3 g/dL [facility] Sodium [Moles/Vol] 130 mmol/L Low 136 - 145 mmol/L [facility] Urea nitrogen [Mass/Vol] 10 mg/dL 9 - 23 mg/dL [facility] ED Nursing Noteon 04-21-2025 ED Nursing Note Placed new meplix pads on open wounds on sacrum. Pictures updated in pt's chart. Normal [facility] ED Provider Noteon ED Provider Note EMERGENCY DEPARTMENT ENCOUNTER Pt Name: Anmol Reynolds Birthdate 1960 Date of evaluation: 04/21/2025 ED Provider: Chele León MD CHIEF COMPLAINT Chief Complaint Patient presents with Wound Infection Per EMS pt was sent here from the [facility] for wound infections. Pt has two wound [...] Family History[3] SOCIAL HISTORY Social History[4] SCREENINGS [place] Coma Scale Best Eye Response: Spontaneous Best [...] Eyes: Ex (more content not included)... Normal [facility] ESR (Bld) [Velocity]Ordered By: Grecia Hutton on 04-21-2025 Interpretation and review of laboratory results Abnormal [facility] HEMOGLOBIN A1Con 04-21-2025 Glucose [Mass/Vol] 180 mg/dL Normal [facility] Comment on above: Result Comment: ORDE R COMMENTS: If not done within the last 3 mos HbA1c values of 5.7-6.4 percent indicate an increased risk for developing diabetes mellitus. HbA1c values greater than or equal to 6.5 percent are diagnostic of diabetes mellitus. For diagnosis of diabetes in individuals without unequivocal hyperglycemia, results should be confirmed by repeat testing. Performed By: #### L [id number] #### Reservations Agent: BIANCA NICHOLS ([phone]) [facility] ([facility]) [address] [place] [address] HEMOGLOBIN A1C 7.9 %HbA1C High <5.7 [facility] Comment on above: Result Comment: Norm al less than 5.7% Prediabetes 5.7% to 6.4% Diabetes 6.5% or higher --HgbA1C levels may not be accurate in patients who have renal disease, received recent blood transfusions, are anemic, or who have dyshemoglobinemia. Performed By: #### L [id number] #### Reservations Agent: BIANCA NICHOLS ([phone]) [facility] ([facility]) [address] [place] [address] LACTIC ACID WITH REFLEXon Lactate [Moles/Vol] 1.1 mmol/L Normal 0.5-2.2 [facility] Comment on above: Performed By: #### L [id number] #### Reservations Agent: BIANCA NICHOLS ([phone]) [facility] ([facility]) [address] [place] [address] Laboratory - Chemistry and C hemistry - challengeon 04-21-2025 Lactate [Moles/Vol] 1.1 mmol/L 0.5 - 2. 2 mmol/L [facility] Laboratory - Hematology and Cell countsOrdered By: Grecia Hutton on 04-21-2025 ESR (Bld) [Velocity] 78 mm/h High [facility] Microinox No Panel Informationon 04-21 Interpretation and review of laboratory results Normal [facility] Progress Noteon 04-21-2025 Progress Note [...] ago. States that he is at a half-way and they were concerned that his wounds [...] EMS pt was sent here from the [facility] for wound infections. Pt has two wound [...] Family History[3] SOCIAL HISTORY Social History[4] SCREENINGS [place] Coma Scale Best Eye Response: Spontaneous Best Verbal Response: Oriented Best Motor Response: Follows commands [place] (more content not included)... Normal [facility] SEDIMENTATION RATE, AUTOMATE Don 04-21-2025 SEDIMENTATION RATE, ERYTHROCYTE 78 mm/hr High 0-10 [facility] Comment on above: Performed By: #### L [id number], [id number] ####Reservations Agent: BIANCA NICHOLS ([phone])[facility] ([address] Urine Cultureon 04-20-2025 [facility] Providencia stuartii [place] Count >100,000 Providencia stuartii: REACTION Ampicillin Islt HARINDER >=32 Ampicillin+Sulbac Islt HARINDER R Cefepime Islt HARINDER <=0.12 S cefTRIAXone Islt HARINDER <=0.25 S Ciprofloxacin Islt HARINDER >=4 R Gentamicin Islt HARINDER R levoFLOXacin Islt HARINDER >=8 R Meropenem Islt HARINDER 1 S Nitrofurantoin Islt HARINDER 128 R Pip+Tazo Islt HARINDER <=4 S TMP SMX Islt HARINDER >=320 R Normal [facility] Comment on above: Performed By: #### L 500.2500, L100.0500 #### [facility] [address] [place], [address] Gram Stainon 04-18-2025 GS L BUTTOCKS Gram Stain 4+ Gram positive cocci 1+ Gram negative rods 2+ White Blood Cells Normal [facility] Comment on above: Performed By: #### L 500.2500, L100.0500 #### [facility] [address] [place], [address] Urinalysis, Completeon 04-18 AMORPHOUS 4+ Normal [facility] Comment on above: Order Comment: 313.2 Performed By: #### L 500.2500, L100.0500 #### [facility] [address] [place], [address] WBC 0-5 SEEN Normal 0-5 [facility] Comment on above: Order Comment: 313.2 Performed By: #### L 500.2500, L100.0500 #### [facility] [address] [place], [address] TRIPLE PHOS 4+ /hpf Normal [facility] Comment on above: Order Comment: 313.2 Performed By: #### L 500.2500, L100.0500 #### [facility] [address] [place], [address] BACTERIA 0 SEEN Normal None Seen [facility] Comment on above: Order Comment: 313.2 Performed By: #### L 500.2500, L100.0500 #### [facility] [address] [place], [address] EPI,SQUAMOUS 0 SEEN Normal 0-5 [facility] Comment on above: Order Comment: 313.2 Performed By: #### L 500.2500, L100.0500 #### [facility] [address] [place], [address] Mucus Ql (Urine sed) 0 SEEN Normal [facility] Comment on above: Order Comment: 313.2 Performed By: #### L 500.2500, L100.0500 #### [facility] [address] [place], [address] RBC 0 SEEN Normal 0-5 [facility] Comment on above: Order Comment: 313.2 Performed By: #### L 500.2500, L100.0500 #### [facility] [address] [place], [address] CNPNon 03-24-2025 CNPN Telephone (UROLAE) GAIL,ANMOL ARAUJO ([id number]) 1960 M Date Time Provider Department 03/24/25 ANMOL HERBERT During your visit today, we recorded the following information about you: Salina Debbie 03/24/2025 9:54 AM Signed Per op note [...] Comments as of 02/17/2025: Verified medications with [facility] 02/17/2025 Problem List As Of Date 03/24/2025 Noted Resolved NO SHOW [091916] 08/31/2013 05/29/2020 Perineal abscess [L02.215] 06/13/2019 05/29/2020 [...] 02/17/2025 Proctoco (more content not included)... Normal [facility] ANES POSTPROC EVALon 025 ANES POSTPROC EVAL HNO ID: [id number] Author: AUDREY SIMMONS MD Service: Anesthesiology Author [...] SIGNATURE: Audrey Simmons MD PATIENT NAME: Anmol Araujo Given DATE: March 20, 2025 TIME: 12:16 PM CSN: [id number] Normal [facility] ANES PRE-OPon 03-20-2025 ANES PRE-OP HNO ID: [id number] Author: AUDREY SIMMONS MD Service: Anesthesiology Author [...] and consent discussed: yes. Patient / Responsible Alliance Party agrees to proceed: yes Patient / [...] as needed (more content not included)... 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 MRSA bacteremia 11/27/2021 Neuropathy Nicotine use disorder, F17.2 06/14/2019 Pilonidal cyst with abscess 12/31/2020 Pilonidal cyst without abscess 05/29/2020 Pyelonephritis 11/27/2021 Sciatica Severe protein-calorie malnutrition (HCC) 09/04/2021 Type 2 diabetes mellitus with hyperglycemia, with long-term current use of insulin ([facility]) 01/18/2021 Ureteral stone 11/25/2021 UTI (urinary tract infection) 11/26/2021 Vertebral osteomyelitis ([facility]) 01/04/2022 PAST SURGICAL HISTORY: PAST SURGICAL HISTORY [...] Value 02/22 (more content not included)... Normal [facility] OPERATIVE NOon 03-20-2025 OPERATIVE NO HNO ID: [id number] Author: ANMOL HERBERT MD Service: Urology Author Type: Physician Type: Operative Report Filed: 03/21/2025 07:31 Note Text: OPERATIVE/PROCEDURE REPORT LOG ID: [id number] SURGERY/PROCEDURE DATE: 03/20/2025 INCISION/PROCEDURE START TIME: 10:34 AM INCISION CLOSE/PROCEDURE END TIME: 11:03 AM SURGEON(S)/PROCEDURAL IST(S) AND TEACHER PHYSICALLY IMPAIRED(S): Surgeons and Role: * Anmol Herbert MD - Primary * Jose Nesbitt MD - Resident - Assisting No Additional Staff SURGERY/PROCEDURE(S): CYSTOSCOPY, RETROPYELOGRAM: 17788 (CPT?) CYSTOURETHROSCOPY W/ REMOVE URETERAL STENT: 42213 (CPT?) INSERTION STENT DOUBLE J: 97709 (CPT?) ANESTHESIA: General SURGERY/PROCEDURE DETAILS: Anmol Reynolds [...] the beginning of the procedure. Chronic 20 Czech catheter was removed. A 21F cystourethroscope was [...] all mucus and cystoscope was removed. 20 Czech catheter with 10 cc in balloon was replaced. Patient awoken from anesthesia having tolerated the procedure well. Anmol Reynolds Was transferred to recovery room. PRE-OP/PRE-PROCEDURE DIAGNOSIS: Pre-existing ureteral stents bilateral POST-OP/POST-PROCEDUR E DIAGNOSIS: Same ESTIMATED BLOOD LOSS: 0 ml SPECIMENS: None IMPLANTABLE DEVICES: NONE DRAINS: 20 Czech Santana catheter with 10 cc in balloon [...] MD March 21, 2025 7:31 AM Normal [facility] XR RETROGRADE PYELOGRAM BILo n 03-20-2025 XR RETROGRADE PYELOGRAM KENROY * * *Final Report* * * DATE OF EXAM: Mar 20 2025 5:16PM [facility] 3021 - XR RETROGRADE PYELOGRAM KENROY / [...] of ureteral stents and bilateral retrograde pyelograms. Pearl Fisherman: PSCB Transcribe Date/Time: Mar 21 2025 8:21A Dictated by : KATHRIN MCKNIGHT MD This examination was interpreted and the report reviewed and electronically signed by: KATHRIN MCKNIGHT MD on Mar 21 2025 8:23AM EST [id number] [facility] NURSING PROGon 03-17-2025 NURSING PROG HNO ID: [id number] Author: VICTORIANO GRANT RN Service: ? Author Type: Registered Nurse Type: Nursing Progress Note Filed: 03/17/2025 13:04 Note Text: Spoke w/ Comfort,surgical schedule @ 's office to verify scheduled time of Sx for Thursday;AND was directed that OR scheduled for 10:00;AND Eliquis does Not need to be held for procedure. [facility] 36on 03-15-2025 36 Spoke to nursing facility who states Pt is going to proceed with surgery at [facility]. Normal [facility] 36 Left message for Pts nurse to call me back. [facility] CNOVon 03-14-2025 CNOV Office Visit (PLWDMR ) GIVEN,ANMOL ARAUJO ([id number]) 1960 M Date Time Provider Department 03/14/25 1:50 PM MILAD GOODSON PLWDMR During your visit today, we recorded the following information about you: Temperature Pulse Respiration Blood pressure 98 degrees 84/minute 20/minute 107/70 Leuchtag, Dawood, RN 03/14/2025 2:54 PM Addendum Nursing Documentation Pertinent Medical History: paraplegia, MRSA, osteomyelitis, UTI, DM2, neuropathy, pyelonephritis, Wound Etiology according to patient: sacrum wound has had for four years per pt Patient arrived via: self in motorized wheelchair - patient is a everett with multiple staff Home Care Company/Nursing Facility: [facility] Consent captured for debridement per (Provider) and good until Special Instructions (for example, patient stands at the bedside for exam/dressing): bed Anticoagulant Therapy: Eliquis Living Situation (ie... Apartment, house, CORRECTION): sanctuary Who lives with patient: facility Who [...] BY PROVIDER: Anesthetic Used: N/A applied per museum preparator # 1 AND 2 Other procedure: Specimen [...] COMPRESSION: N/A DME: Prism order date DME: [facility] , PH: [phone] SPECIAL NEEDS[facility] Emotional support N/A OR set-up N/A Diagnostic Sales Specialist N/A Incontinence needs N/A DISCHARGED in stable [...] be drawn PARI and results faxed to [facility] [phone] Stop smoking EDUCATION: The patient/family was instructed [...] been diagnosed with (more content not included)... [facility] 36on 03-13-2025 36 Still need disc with images. Will need to review with Dr. Patel. Normal [facility] 36 Is it OK to get Pt scheduled for surgery? Please advise. [facility] 37on 03-07-2025 37 Need images from [facility] on disc brought to office for review in order for patient to have ureteral stent treatment at [facility]. Patient prefers [facility]. CT abdomen/pelvis 02/16/25 XR abdomen 02/16/25 and 02/17/25 Planning for ESWL vs laser litho w stent exchange. Normal [facility] Office Visiton 03-07-2025 Follow-up visit [id number] Anmol Reynolds 1960 M Date Provider Department Center 03/07/2025 [id number] [facility] URO None No family history on file Level of Service:51672 [place] OFFICE/OUTPATIENT ESTABLISHED MOD MDM 30 MIN Reason for Visit and Comments: Nephrolithiasis [[id number]] [facility] Progress Noteon 03-07-2025 Progress Note Yoana Solitario APRN - [employer] 03/07/2025 9:15 AM Urology Office Visit [facility] [address] [facility] [id number] PATIENT NAME: Anmol Franco Given DATE OF [...] negative rods. Treated. Follow up outpatient with [facility] urology Patient is scheduled for surgery w Dr Maria on 03/20/25 however he prefers treatment at [facility] [facility] Will need images for surgery planning. Chronic [...] 8. Details above. 9. Follow-up as indicated. Pearl Fisherman: CECILIA Transcribe Date/Time: Feb 16 2025 10:02P Dictated by : CORBIN PERRY MD This examination was interpreted and the report reviewed and electronically signed by: CORBIN PERRY MD on Feb 16 2025 10:34PM EST Narrative * * *Final Report* * * DATE OF EXAM: Feb 16 2025 8:33PM [facility] 0530 - CT ABD/PEL W IVCON / [...] and sagittal (more content not included)... Normal [facility] Anion gap in Serum or Plasma Ordered By: Tab Dupont on 03-01-2025 Anion gap [Moles/Vol] 11 mmol/L 02-16 [facility] BUN/creatinine ratioOrdered By: Tab Dupont on 03-01-2025 Urea nitrogen/Creatinine [Mass ratio] 15.3 mg/mg 07-24 [facility] Basic Metabolic Profile (BMP )on 03-01-2025 BUN/CRE 15.3 RATIO Normal 07-24 [facility] Comment on above: Order Comment: 313.2 Performed By: #### L 500.2500, L100.0500 #### [facility] [address] [place], [address] Calcium [Mass/Vol] 8.5 mg/dL Normal 7.6-11.0 [facility] Comment on above: Order Comment: 313.2 Performed By: #### L 500.2500, L100.0500 #### [facility] [address] [place], [address] Chloride [Moles/Vol] 104 mmol/L Normal 98-108 [facility] Comment on above: Order Comment: 313.2 Performed By: #### L 500.2500, L100.0500 #### [facility] [address] [place], [address] CO2 [Moles/Vol] 21.8 mmol/L Normal 21.0-32.0 [facility] Comment on above: Order Comment: 313.2 Performed By: #### L 500.2500, L100.0500 #### [facility] [address] [place], [address] Creatinine [Mass/Vol] 0.59 mg/dL Low 0.70-1.20 [facility] Comment on above: Order Comment: 313.2 Performed By: #### L 500.2500, L100.0500 #### [facility] [address] [place], [address] GAP 11 Normal 5-15 [facility] Comment on above: Order Comment: 313.2 Performed By: #### L 500.2500, L100.0500 #### [facility] [address] [place], [address] GFR/1.73 sq M.predicted among non-blacks MDRD (S/P/Bld) [Vol rate/Area] 109 mL/min/{1.73_m2} Normal >60 [facility] Comment on above: Order Comment: 313.2 Result Comment: mL/m in/1.73m2 CKD-EPI Creatinine Equation (2020) Performed By: #### L 500.2500, L100.0500 #### [facility] [address] [place], [address] Glucose [Mass/Vol] 146 mg/dL High 70-99 [facility] Comment on above: Order Comment: 313.2 Performed By: #### L 500.2500, L100.0500 #### [facility] [address] [place], [address] Potassium [Moles/Vol] 4.0 mmol/L Normal 3.3-5.1 [facility] Comment on above: Order Comment: 313.2 Performed By: #### L 500.2500, L100.0500 #### [facility] [address] [place], [address] Sodium [Moles/Vol] 136 mmol/L Normal 133-145 [facility] Comment on above: Order Comment: 313.2 Performed By: #### L 500.2500, L100.0500 #### [facility] [address] [place], [address] Urea nitrogen [Mass/Vol] 9 mg/dL Normal 4-19 [facility] Comment on above: Order Comment: 313.2 Performed By: #### L 500.2500, L100.0500 #### [facility] [address] [place], [address] CBC-Complete Blood Cnt No Di ffon 03-01-2025 Erythrocyte distribution width (RBC) [Ratio] 15.4 % High 11.6-14.6 [facility] Comment on above: Order Comment: 313.2 Performed By: #### L 500.2500, L100.0500 #### [facility] [address] [place], [address] Hematocrit (Bld) [Volume fraction] 41.2 % Normal 40-54 [facility] Comment on above: Order Comment: 313.2 Performed By: #### L 500.2500, L100.0500 #### [facility] [address] [place], [address] Hemoglobin (Bld) [Mass/Vol] 12.9 g/dL Low 13.0-16.5 [facility] Comment on above: Order Comment: 313.2 Performed By: #### L 500.2500, L100.0500 #### [facility] [address] [place], [address] MCH (RBC) [Entitic mass] 29.5 pg Normal 27.0-32.0 [facility] Comment on above: Order Comment: 313.2 Performed By: #### L 500.2500, L100.0500 #### [facility] [address] [place], [address] MCHC (RBC) [Mass/Vol] 31.3 g/dL Low 32-36 [facility] Comment on above: Order Comment: 313.2 Performed By: #### L 500.2500, L100.0500 #### [facility] [address] [place], [address] MCV (RBC) [Entitic vol] 94.3 fL High 80-94 [facility] Comment on above: Order Comment: 313.2 Performed By: #### L 500.2500, L100.0500 #### [facility] [address] [place], [address] Platelet mean volume (Bld) [Entitic vol] 11.6 fL Normal 6.2-12.0 [facility] Comment on above: Order Comment: 313.2 Performed By: #### L 500.2500, L100.0500 #### [facility] [address] [place], [address] Platelets (Bld) [#/Vol] 345 10*3/uL Normal 150-450 [facility] Comment on above: Order Comment: 313.2 Performed By: #### L 500.2500, L100.0500 #### [facility] [address] [place], [address] RBC (Bld) [#/Vol] 4.37 10*6/uL Low 4.6-6.2 [facility] Comment on above: Order Comment: 313.2 Performed By: #### L 500.2500, L100.0500 #### [facility] [address] [place], [address] RDW SD 52.4 fl High 35.1-43.9 [facility] Comment on above: Order Comment: 313.2 Performed By: #### L 500.2500, L100.0500 #### [facility] [address] [place], [address] WBC (Bld) [#/Vol] 7.6 10*3/uL Normal 4.4-11.0 [facility] Comment on above: Order Comment: 313.2 Performed By: #### L 500.2500, L100.0500 #### [facility] [address] [place], [address] Carbon dioxide, total [Moles /volume] in Central venous bloodOrdered By: Tab Dupont on 03-01-2025 CO2 [Moles/Vol] 21.8 mmol/L 21.0-32.0 [facility] Chloride assayOrdered By: Vinh Lehman on 03-01-2025 Chloride [Moles/Vol] 104 mmol/L 98-108 [facility] Erythrocyte distribution wid th ratioOrdered By: Tab Dupont on 03-01-2025 Erythrocyte distribution width (RBC) [Ratio] 15.4 % High 11.6-14.6 [facility] Erythrocyte distribution wid th standard deviationOrdered By: Tab Dupont on 03-01-2025 Erythrocyte distribution width (RBC) [Ratio] 52.4 fl High 35.1-43.9 [facility] Glomerular filtration rate ( GFR) estimation/1.73 sq m using serum, plasma, or whole bOrdered By: Tab Dupont on 03-01-2025 GFR/1.73 sq M.predicted among non-blacks MDRD (S/P/Bld) [Vol rate/Area] 109 mL/min/{1.73_m2} >60 [facility] Comment on above: mL/min/1.73m2 CKD-EP I Creatinine Equation (2020) Hematocrit Auto (Bld) [Volum e fraction]Ordered By: Tab Dupont on 03-01-2025 Hematocrit (Bld) [Volume fraction] 41.2 % 40-54 [facility] Hemoglobin measurementOrdere d By: Tab Dupont on 03-01-2025 Hemoglobin (Bld) [Mass/Vol] 12.9 g/dL Low 13.0-16.5 [facility] MCV (mean corpuscular volume ) determinationOrdered By: Tab Dupont on 03-01-2025 MCV (RBC) [Entitic vol] 94.3 fL High 80-94 [facility] Mean corpuscular hemoglobin (MCH) determinationOrdered By: Tab Dupont on 03-01-2025 MCH (RBC) [Entitic mass] 29.5 pg 27.0-32.0 [facility] Mean corpuscular hemoglobin concentration (MCHC) determinationOrdered By: Tab Dupont on 03-01-2025 MCHC (RBC) [Mass/Vol] 31.3 g/dL Low 32-36 [facility] Mean platelet volume determi nationOrdered By: Tab Dupont on 03-01-2025 Platelet mean volume (Bld) [Entitic vol] 11.6 fL 6.2-12.0 [facility] Platelet countOrdered By: Vinh Lehman on 03-01-2025 Platelets (Bld) [#/Vol] 345 10*3/uL 150-450 [facility] Potassium measurement (mass/ volume)Ordered By: Tab Dupont on 03-01-2025 Potassium (Unsp spec) [Mass/Vol] 4.0 mmol/L 3.3-5.1 [facility] RBC Auto (Bld) [#/Vol]Ordere d By: Tab Dupont on 03-01-2025 RBC (Bld) [#/Vol] 4.37 10*6/uL Low 4.6-6.2 [facility] Serum creatinine measurement (mass/volume)Ordered By: Tab Dupont on 03-01-2025 Creatinine [Mass/Vol] 0.59 mg/dL Low 0.70-1.20 [facility] Serum glucose measurement (m ass/volume)Ordered By: Tab Dupont on 03-01-2025 Glucose [Mass/Vol] 146 mg/dL High 70-99 [facility] Serum or plasma calcium rnadall urement (mass/volume)Ordered By: Tab Dupont on 03-01-2025 Calcium [Mass/Vol] 8.5 mg/dL 7.6-11.0 [facility] Serum or plasma urea nitroge n measurement (mass/volume)Ordered By: Tab Dupont on 03-01-2025 Urea nitrogen [Mass/Vol] 9 mg/dL 4-19 [facility] Sodium levelOrdered By: Omar Dupont on 03-01-2025 Sodium [Moles/Vol] 136 mmol/L 133-145 [facility] White blood cell (WBC) count Ordered By: Tab Dupont on 03-01-2025 WBC (Bld) [#/Vol] 7.6 10*3/uL 4.4-11.0 [facility] CBC panel Auto (Bld)on 02-22 Erythrocyte distribution width (RBC) [Ratio] 14.8 % Normal 11.5-15.0 [facility] Comment on above: Order Comment: Speci men Type: BLOOD SPECIMENOrdering Facility: [facility] Address: [address] [place] [address] Performed By: #### 5 8410-2 ####[facility] LABORATORYCLIA [id number] [address] STATES OF [facility] Hematocrit (Bld) [Volume fraction] 33.6 % Low 39.0-51.0 [facility] Comment on above: Order Comment: Speci men Type: BLOOD SPECIMENOrdering Facility: [facility] Address: [address] [place] [address] Performed By: #### 5 8410-2 ####[facility] LABORATORYCLIA [id number] [address] [place] OF [place] Hemoglobin (Bld) [Mass/Vol] 10.6 g/dL Low 13.0-17.0 [facility] Comment on above: Order Comment: Speci men Type: BLOOD SPECIMENOrdering Facility: [facility] Address: [address] [place] [address] Performed By: #### 5 8410-2 ####[facility] LABORATORYCLIA [id number] [address] [place] MCH (RBC) [Entitic mass] 30.0 pg Normal 26.0-34.0 [facility] Comment on above: Order Comment: Speci men Type: BLOOD SPECIMENOrdering Facility: [facility] Address: [address] [place] [address] Performed By: #### 5 8410-2 ####[facility] LABORATORYCLIA [id number] [address] MCHC (RBC) [Mass/Vol] 31.5 g/dL Normal 30.5-36.0 [facility] Comment on above: Order Comment: Speci men Type: BLOOD SPECIMENOrdering Facility: [facility] Address: [address] [place] [address] Performed By: #### 5 8410-2 ####[facility] LABORATORYCLIA [id number] [address] [place] MCV (RBC) [Entitic vol] 95.2 fL Normal 80.0-100.0 [facility] Comment on above: Order Comment: Speci men Type: BLOOD SPECIMENOrdering Facility: [facility] Address: [address] [place] [address] Performed By: #### 5 8410-2 ####[facility] LABORATORYCLIA [id number] [address] Nucleated RBC (Bld) [#/Vol] 10*3/uL Normal <0.01 [facility] Comment on above: Order Comment: Speci men Type: BLOOD SPECIMENOrdering Facility: [facility] Address: [address] [place] [address] Performed By: #### 5 8410-2 ####[facility] LABORATORYCLIA [id number] [address] STATES OF [facility] Platelet mean volume (Bld) [Entitic vol] 11.5 fL Normal 9.0-12.7 [facility] Comment on above: Order Comment: Speci men Type: BLOOD SPECIMENOrdering Facility: [facility] Address: [address] [place] [address] Performed By: #### 5 8410-2 ####[facility] LABORATORYCLIA [id number] [address] [place] Platelets (Bld) [#/Vol] 153 10*3/uL Normal 150-400 [facility] Comment on above: Order Comment: Speci men Type: BLOOD SPECIMENOrdering Facility: [facility] Address: [address] [place] [address] Performed By: #### 5 8410-2 ####[facility] LABORATORYCLIA [id number] [address] OF [facility] RBC (Bld) [#/Vol] 3.53 10*6/uL Low 4.20-6.00 [facility] Comment on above: Order Comment: Speci men Type: BLOOD SPECIMENOrdering Facility: [facility] Address: [address] [place], [place] [address] [id number] Performed By: #### 5 8410-2 ####[facility] LABORATORYCLIA [id number] [address] WBC (Bld) [#/Vol] 9.23 10*3/uL Normal 3.70-11.00 [facility] Comment on above: Order Comment: Speci men Type: BLOOD SPECIMENOrdering Facility: [facility] Address: [address] [place], [place] [address] Performed By: #### 5 8410-2 ####[facility] LABORATORYCLIA [id number] [address] CNDSon 02-22-2025 CN HNO ID: [id number] Author: CHUY PADILLA DO Service: Hospital Medicine [...] 2024. The patient initially presented to the [facility] ED on February 16, 2025 after being found unresponsive at his SNF and was unable to protect his airway. Patient was intubated, started on Levophed and admitted to MICU for acute hypoxemic respiratory failure. CT showed hydronephrosis and culture was remarkable for gram-negative rods. patient was started on meropenem per Infectious disease recommendations. urology was consulted and recommended to follow-up with [facility] urology. patient was extubated on 02/17, [...] No pending results Discharge Disposition Discharge Disposition: Detention Facility - Less than 30 Days Activity [...] Call to schedule follow-ups renal stones With: [facility] When: In: Comment - PARI Patient/Parents to call for appointment?: Yes Follow-Up Appointment Follow-up hospitalization With: Your primary care provider When: In 1 week Patient/Parents to call for appointment?: Yes Follow-up Appointment Follow-up bacteremia When: In 2 weeks Patient/Parents to call for appointment?: Yes Gayle Scott MD [phone] [address] [facility] [address] [facility] [phone] PCP Requested Referral Additional Provider to Provider Information: Treatment Team: Attending Provider: Chuy Padilla DO Consulting: Charlie Williamson MD Primary Service: [facility] Problems Diagnosis POA Septic shock (HCC) Yes Proteus mirabilis infection Unknown Pressure injury of left buttock, unstageable (HCC) Unknown Gram negative septicemia (HCC) Unknown Bacteremia due to Enterococcus Unknown Fever, unspecified Unknown Leukocytosis Unknown Altered mental status Unknown Paraplegia (HCC) Unknown Proctocolitis Unknown Encounter for long-term (current) us (more content not included)... Normal [facility] Comprehensive metabolic 2000 panelon 02-22-2025 Albumin [Mass/Vol] 2.2 g/dL Low 3.9-4.9 [facility] Comment on above: Order Comment: Speci courtney Type: BLOOD SPECIMENOrdering Facility: [facility] Address: [address] [place] [address] Performed By: #### 2 4323-8 ####[facility] LABORATORYCLIA [id number] [place] [address] [place] ALP [Catalytic activity/Vol] 89 U/L Normal 38-113 [facility] Comment on above: Order Comment: Speci men Type: BLOOD SPECIMENOrdering Facility: [facility] Address: [address] [place] [address] Performed By: #### 2 4323-8 ####[facility] LABORATORYCLIA [id number] [place] [address] [place] ALT With P-5'-P [Catalytic activity/Vol] 12 U/L Normal 10-54 [facility] Comment on above: Order Comment: Speci men Type: BLOOD SPECIMENOrdering Facility: [facility] Address: [address] [place] [address] Performed By: #### 2 4323-8 ####[facility] LABORATORYCLIA [id number] [address] [place] Anion gap [Moles/Vol] 8 mmol/L Normal 8-15 [facility] Comment on above: Order Comment: Speci men Type: BLOOD SPECIMENOrdering Facility: [facility] Address: [address] [place] [address] Performed By: #### 2 4323-8 ####[facility] LABORATORYCLIA [id number] [address] [place] AST With P-5'-P [Catalytic activity/Vol] 13 U/L Low 14-40 [facility] Comment on above: Order Comment: Speci men Type: BLOOD SPECIMENOrdering Facility: [facility] Address: [address] [place] [address] Performed By: #### 2 4323-8 ####[facility] LABORATORYCLIA [id number] [place] [address] [place] Bilirubin [Mass/Vol] 0.4 mg/dL Normal 0.2-1.3 [facility] Comment on above: Order Comment: Speci men Type: BLOOD SPECIMENOrdering Facility: [facility] Address: [address] [place] [address] Performed By: #### 2 4323-8 ####[facility] LABORATORYCLIA [id number] [address] [place] Calcium [Mass/Vol] 7.7 mg/dL Low 8.5-10.2 [facility] Comment on above: Order Comment: Speci men Type: BLOOD SPECIMENOrdering Facility: [facility] Address: [address] [place] [address] Performed By: #### 2 4323-8 ####[facility] LABORATORYCLIA [id number] [place] [address] [place] Chloride [Moles/Vol] 108 mmol/L High 98-107 [facility] Comment on above: Order Comment: Speci men Type: BLOOD SPECIMENOrdering Facility: [facility] Address: [address] [place] [address] Performed By: #### 2 4323-8 ####[facility] LABORATORYCLIA [id number] [address] [place] CO2 [Moles/Vol] 23 mmol/L Normal 22-30 [facility] Comment on above: Order Comment: Speci men Type: BLOOD SPECIMENOrdering Facility: [facility] Address: [address] [place] [address] Performed By: #### 2 4323-8 ####[facility] LABORATORYCLIA [id number] [address] STATES OF [facility] Creatinine [Mass/Vol] 0.60 mg/dL Low 0.73-1.22 [facility] Comment on above: Order Comment: Speci men Type: BLOOD SPECIMENOrdering Facility: [facility] Address: [address] [place] [address] Performed By: #### 2 4323-8 ####[facility] LABORATORYCLIA [id number] [address] Creatinine and Glomerular filtration rate.predicted panel (S/P/Bld) 108 mL/min/1.73m??? Normal >=60 [facility] Comment on above: Order Comment: Speci men Type: BLOOD SPECIMENOrdering Facility: [facility] Address: [address] [place] [address] Result Comment: Leena mated Glomerular Filtration Rate [...] actual GFR. Performed By: #### 2 4323-8 ####[facility] LABORATORYCLIA [id number] [place] [address] [place] Glucose [Mass/Vol] 144 mg/dL High 74-99 [facility] Comment on above: Order Comment: Jg courtney Type: BLOOD SPECIMENOrdering Facility: [facility] Address: [address] [place] [address] Result Comment: The [place] [employer] Association (ADA) provides guidance for cutoff [...] Standards of Medical Care in Diabetes 2016, [place] [employer]. Diabetes Care. 2016.39(Suppl 1). Performed By: #### 2 4323-8 ####[facility] LABORATORYCLIA [id number] [place] [address] [place] Potassium [Moles/Vol] 3.9 mmol/L Normal 3.7-5.1 [facility] Comment on above: Order Comment: Jg courtney Type: BLOOD SPECIMENOrdering Facility: [facility] Address: [address] [place] [address] Performed By: #### 2 4323-8 ####[facility] LABORATORYCLIA [id number] [place] [id number] [place] Protein [Mass/Vol] 5.7 g/dL Low 6.3-8.0 [facility] Comment on above: Order Comment: Jg courtney Type: BLOOD SPECIMENOrdering Facility: [facility] Address: [address] [place] [id number] Performed By: #### 2 4323-8 ####[facility]ORATORYCLIA [id number] [place] [address] [place] Sodium [Moles/Vol] 139 mmol/L Normal 136-144 [facility] Comment on above: Order Comment: Speci men Type: BLOOD SPECIMENOrdering Facility: [facility] Address: [address] [place] [address] Performed By: #### 2 4323-8 ####[facility] LABORATORYCLIA [id number] [place] [id number] [place] Urea nitrogen [Mass/Vol] 14 mg/dL Normal 9-24 [facility] Comment on above: Order Comment: Speci men Type: BLOOD SPECIMENOrdering Facility: [facility] Address: [address] [place] [address] Performed By: #### 2 4323-8 ####[facility] LABORATORYCLIA [id number] [place] [address] [facility] [place] NURSING PROGon 02-22-2025 NURSING PROG HNO ID: [id number] Author: NAHUN GUNDERSON, RN Service: Nursing Author Type: Registered Nurse Type: Nursing Progress Note Filed: 02/22/2025 19:58 Note Text: Call to ALEXANDRA Adams at [facility] for report. Follow up appts AND new medications reviewed. Normal [facility] THERAPY NTon 02-22-2025 THERAPY NT HNO ID: [id number] Author: VICTORIANO BACA, JAIDAR/L Service: Occupational Therapy Author Type: Occupational Therapist Type: Therapy (PT/OT/Speech/Resp) Filed: 02/22/2025 15:00 Note Text: Occupational Therapy Evaluation Summary SERVICE DATE: 02/22/2025 SERVICE TIME: 1345 to 1403 ROOM: [place] [address] OT 6 Clicks Score: 16 DISCHARGE RECOMMENDATIONS [...] shock was managed in ICU; transferred to [facility] 02/20 Relevant Past Medical History: back injury and surgery in the past--then found to have epidural abscess--had another back sx in 2021--harware needed removed in January 2022 and then was paraplegic; has had issues with UTIs HOME LIVING Patient Lives With: Facility Care ([facility]) Assistance Available: 24-Hour Tub/Shower Type: sponge bath [...] Time (minutes): 18 $ Evaluation - Low (96231) Billed Units: 1 unit TRAINING AND EDUCATION [...] WFL STRENGTH Right Upper Extremity Strength Comments: 02/06 Left Upper Extremity Strength Comments: 02/06 ACTIVITY TOLERANCE GOALS ACUTE CARE TREATMENT PLAN OT Frequency: Discontinue Therapy Services Reasons Therapy Services Discontinued: No skilled needs SIGNATURE: SCHUYLER Mares/Mina PATIENT NAME: Anmol Given DATE: February 22, 2025 TIME: 2:58 PM Normal [facility] THERAPY NT HNO ID: [id number] Author: FABRICIO GREENBERG PT Service: Physical Therapy Author Type: Physical Therapist Type: Therapy (PT/OT/Speech/Resp) Filed: 02/22/2025 11:54 Note Text: Physical Therapy Evaluation Summary SERVICE DATE: 02/22/2025 SERVICE TIME: 1120 to 1135 ROOM: [id number] PT 6 Clicks Score: 7 DISCHARGE RECOMMENDATIONS ECF ASSESSMENT Response to Therapy Interventions: Multiple Ongoing Medical Issues pt tolerated bilat LE PROM--no c/o pain; able to complete roll with assist from PT with drawhseet PRECAUTIONS Fall Risk, Lines/Tubes/Drains CURRENT HOSPITAL COURSE presented to ED after being found unresponsive--septic shock was managed in ICU; transferred to [facility] 02/20 Relevant Past Medical History: back injury and surgery in the past--then found to have epidural abscess--had another back sx in 2021--harware needed removed in January 2022 and then was paraplegic; has had issues with [facility] Patient Lives With: Facility Care ([facility]) Assistance Available: 24-Hour Equipment Owned: Wheelchair- Power [...] Skilled Treatment Time (minutes): 15 $ Evaluation-Moderate (68106) Billed Units: 1 unit Completed PROM bilat [...] (pt at baseline functioning--able to return to F with prior LOC) Treatment Interventions: Joint Mobility SIGNATURE: Fabricio Greenberg, PT PATIENT NAME: Anmol Given DATE: February 22, 2025 TIME: 11:53 AM Normal [facility] CBC panel Auto (Bld)on 02-21 Erythrocyte distribution width (RBC) [Ratio] 14.9 % Normal 11.5-15.0 [facility] Comment on above: Order Comment: Speci men Type: BLOOD SPECIMENOrdering Facility: [facility] Address: [address] [place] [address] Performed By: #### 5 8410-2 ####[facility] LABORATORYCLIA [id number] [address] OF [facility] Hematocrit (Bld) [Volume fraction] 38.6 % Low 39.0-51.0 [facility] Comment on above: Order Comment: Speci men Type: BLOOD SPECIMENOrdering Facility: [facility] Address: [address] [place] [address] Performed By: #### 5 8410-2 ####[facility] LABORATORYCLIA [id number] [address] OF [place] Hemoglobin (Bld) [Mass/Vol] 12.3 g/dL Low 13.0-17.0 [facility] Comment on above: Order Comment: Speci men Type: BLOOD SPECIMENOrdering Facility: [facility] Address: [address] [place] [address] Performed By: #### 5 8410-2 ####[facility] LABORATORYCLIA [id number] [address] [place] MCH (RBC) [Entitic mass] 29.9 pg Normal 26.0-34.0 [facility] Comment on above: Order Comment: Speci men Type: BLOOD SPECIMENOrdering Facility: [facility] Address: [address] [place] [address] Performed By: #### 5 8410-2 ####[facility] LABORATORYCLIA [id number] [address] OF [facility] MCHC (RBC) [Mass/Vol] 31.9 g/dL Normal 30.5-36.0 [facility] Comment on above: Order Comment: Speci men Type: BLOOD SPECIMENOrdering Facility: [facility] Address: [address] [place] [address] Performed By: #### 5 8410-2 ####[facility] LABORATORYCLIA [id number] [address] [place] MCV (RBC) [Entitic vol] 93.7 fL Normal 80.0-100.0 [facility] Comment on above: Order Comment: Speci men Type: BLOOD SPECIMENOrdering Facility: [facility] Address: [address] [place] [address] Performed By: #### 5 8410-2 ####[facility] LABORATORYCLIA [id number] [address] Nucleated RBC (Bld) [#/Vol] 10*3/uL Normal <0.01 [facility] Comment on above: Order Comment: Speci men Type: BLOOD SPECIMENOrdering Facility: [facility] Address: [address] [place] [address] Performed By: #### 5 8410-2 ####[facility] LABORATORYCLIA [id number] [address] OF [facility] Platelet mean volume (Bld) [Entitic vol] 11.7 fL Normal 9.0-12.7 [facility] Comment on above: Order Comment: Speci men Type: BLOOD SPECIMENOrdering Facility: [facility] Address: [address] [place] [address] Performed By: #### 5 8410-2 ####[facility] LABORATORYCLIA [id number] [address] [place] Platelets (Bld) [#/Vol] 134 10*3/uL Low 150-400 [facility] Comment on above: Order Comment: Speci men Type: BLOOD SPECIMENOrdering Facility: [facility] Address: [address] [place] [address] Result Comment: No c lot detected. Performed By: #### 5 8410-2 ####[facility]ORATORYCLIA [id number] [address] OF [facility] RBC (Bld) [#/Vol] 4.12 10*6/uL Low 4.20-6.00 [facility] Comment on above: Order Comment: Specliliana valdez Type: BLOOD SPECIMENOrdering Facility: [facility] Address: [address] [place] [address] Performed By: #### 5 8410-2 ####[facility] LABORATORYCLIA [id number] [address] OF [facility] WBC (Bld) [#/Vol] 9.99 10*3/uL Normal 3.70-11.00 [facility] Comment on above: Order Comment: Jg valdez Type: BLOOD SPECIMENOrdering Facility: [facility] Address: [address] [place] [address] Performed By: #### 5 8410-2 ####[facility] LABORATORYCLIA [id number] [address] OF [facility] CONSULT PROGon 02-21-2025 CONSULT PROG HNO ID: [id number] Author: ERIKA TEE APRN.[employer] Service: Infectious Disease Author Type: Nurse Practitioner Type: Consult Progress Note Filed: 02/21/2025 15:32 Note Text: Summary: ID signing off PROGRESS NOTE INFECTIOUS DISEASE BRIEF SUMMARY: 64-year-old male past medical history chronic Santana catheter urinary retention/neurogenic bladder, paraplegia due to epidural abscess, diabetes mellitus type 2, bilateral hydronephrosis s/p ureteral stent placement in April 2024 presented to [facility] 02/16/2025 after being found unresponsive at [facility]. Urine and blood cultures with growth of [...] Drains, and Airways Line Duration Peripheral 02/16/251922 [facility] Short Left Antecubital 18 Gauge 4 days Drain Duration Indwelling Urinary Catheter 02/16/252125 [facility] Coude 20 Fr 4 [...] 09/04/2021 7.18 (more content not included)... Normal [facility] Comprehensive metabolic 2000 panelon 02-21-2025 Albumin [Mass/Vol] 2.5 g/dL Low 3.9-4.9 [facility] Comment on above: Order Comment: Speci men Type: BLOOD SPECIMENOrdering Facility: [facility] Address: [address] [place] [address] Performed By: #### 2 4323-8 ####[facility] LABORATORYCLIA [id number] [address] STATES OF [facility] ALP [Catalytic activity/Vol] 121 U/L High 38-113 [facility] Comment on above: Order Comment: Speci men Type: BLOOD SPECIMENOrdering Facility: [facility] Address: [address] [place] [address] Performed By: #### 2 4323-8 ####[facility] LABORATORYCLIA [id number] [place] [address] [place] ALT With P-5'-P [Catalytic activity/Vol] 15 U/L Normal 10-54 [facility] Comment on above: Order Comment: Speci men Type: BLOOD SPECIMENOrdering Facility: [facility] Address: [address] [place] [address] Performed By: #### 2 4323-8 ####[facility] LABORATORYCLIA [id number] [place] [address] [place] Anion gap [Moles/Vol] 9 mmol/L Normal 8-15 [facility] Comment on above: Order Comment: Speci men Type: BLOOD SPECIMENOrdering Facility: [facility] Address: [address] [place] [address] Performed By: #### 2 4323-8 ####[facility] LABORATORYCLIA [id number] [address] [place] AST With P-5'-P [Catalytic activity/Vol] 23 U/L Normal 14-40 [facility] Comment on above: Order Comment: Speci men Type: BLOOD SPECIMENOrdering Facility: [facility] Address: [address] [place] [address] Performed By: #### 2 4323-8 ####[facility] LABORATORYCLIA [id number] [address] STATES OF [facility] Bilirubin [Mass/Vol] 0.8 mg/dL Normal 0.2-1.3 [facility] Comment on above: Order Comment: Speci men Type: BLOOD SPECIMENOrdering Facility: [facility] Address: [address] [place] [address] Performed By: #### 2 4323-8 ####[facility] LABORATORYCLIA [id number] [address] [place] Calcium [Mass/Vol] 8.2 mg/dL Low 8.5-10.2 [facility] Comment on above: Order Comment: Speci men Type: BLOOD SPECIMENOrdering Facility: [facility] Address: [address] [place] [address] Performed By: #### 2 4323-8 ####[facility] LABORATORYCLIA [id number] [place] [address] [place] Chloride [Moles/Vol] 105 mmol/L Normal 98-107 [facility] Comment on above: Order Comment: Speci men Type: BLOOD SPECIMENOrdering Facility: [facility] Address: [address] [place] [address] Performed By: #### 2 4323-8 ####[facility] LABORATORYCLIA [id number] [address] OF [facility] CO2 [Moles/Vol] 21 mmol/L Low 22-30 [facility] Comment on above: Order Comment: Speci men Type: BLOOD SPECIMENOrdering Facility: [facility] Address: [address] [place] [address] Performed By: #### 2 4323-8 ####[facility]ITALCLIA [id number] [address] [place] OF [facility] Creatinine [Mass/Vol] 0.58 mg/dL Low 0.73-1.22 [facility] Comment on above: Order Comment: Speci men Type: BLOOD SPECIMENOrdering Facility: [facility] Address: [address] [place] [address] Performed By: #### 2 4323-8 ####[facility] LABORATORYCLIA [id number] [address] Creatinine and Glomerular filtration rate.predicted panel (S/P/Bld) 110 mL/min/1.73m??? Normal >=60 [facility] Comment on above: Order Comment: Speci men Type: BLOOD SPECIMENOrdering Facility: [facility] Address: [address] [place] [address] Result Comment: Leena mated Glomerular Filtration Rate [...] actual GFR. Performed By: #### 2 4323-8 ####[facility] LABORATORYCLIA [id number] [place] [address] [place] Glucose [Mass/Vol] 162 mg/dL High 74-99 [facility] Comment on above: Order Comment: Jg valdez Type: BLOOD SPECIMENOrdering Facility: [facility] Address: [address] [place] [address] Result Comment: The [place] Diabetes Association (ADA) provides guidance for cutoff [...] Standards of Medical Care in Diabetes 2016, [place] [employer]. Diabetes Care. 2016.39(Suppl 1). Performed By: #### 2 4323-8 ####[facility]ORATORYCLIA [id number] [place] [address] [place] Potassium [Moles/Vol] 4.1 mmol/L Normal 3.7-5.1 [facility] Comment on above: Order Comment: Jg valdez Type: BLOOD SPECIMENOrdering Facility: [facility] Address: [address] [place] [address] Performed By: #### 2 4323-8 ####[facility]ORATORYCLIA [id number] [place] [address] [place] Protein [Mass/Vol] 6.6 g/dL Normal 6.3-8.0 [facility] Comment on above: Order Comment: Jg valdez Type: BLOOD SPECIMENOrdering Facility: [facility] Address: [address] [place] [address] Performed By: #### 2 4323-8 ####[facility] LABORATORYCLIA [id number] [place] [address] [place] Sodium [Moles/Vol] 135 mmol/L Low 136-144 [facility] Comment on above: Order Comment: Speci men Type: BLOOD SPECIMENOrdering Facility: [facility] Address: [address] [place] [address] Performed By: #### 2 4323-8 ####[facility] LABORATORYCLIA [id number] [address] Urea nitrogen [Mass/Vol] 21 mg/dL Normal 9-24 [facility] Comment on above: Order Comment: Speci men Type: BLOOD SPECIMENOrdering Facility: [facility] Address: [address] [place] [address] Performed By: #### 2 4323-8 ####[facility] LABORATORYCLIA [id number] [address] Comprehensive metabolic 2000 panelon 02-20-2025 Albumin [Mass/Vol] 2.3 g/dL Low 3.9-4.9 [facility] Comment on above: Order Comment: Speci men Type: BLOOD SPECIMENOrdering Facility: [facility] Address: [address] [place] [address] Performed By: #### 2 4323-8 ####[facility] LABORATORYCLIA [id number] [address] ALP [Catalytic activity/Vol] 107 U/L Normal 38-113 [facility] Comment on above: Order Comment: Speci men Type: BLOOD SPECIMENOrdering Facility: [facility] Address: [address] [place] [address] Performed By: #### 2 4323-8 ####[facility]ORATORYCLIA [id number] [address] OF [facility] ALT With P-5'-P [Catalytic activity/Vol] 17 U/L Normal 10-54 [facility] Comment on above: Order Comment: Speci men Type: BLOOD SPECIMENOrdering Facility: [facility] Address: [address] [place] [address] Performed By: #### 2 4323-8 ####[facility] LABORATORYCLIA [id number] [place] [address] [place] Anion gap [Moles/Vol] 8 mmol/L Normal 8-15 [facility] Comment on above: Order Comment: Speci men Type: BLOOD SPECIMENOrdering Facility: [facility] Address: [address] [place] [address] Performed By: #### 2 4323-8 ####[facility]ORATORYCLIA [id number] [place] [address] [place] AST With P-5'-P [Catalytic activity/Vol] 22 U/L Normal 14-40 [facility] Comment on above: Order Comment: Speci men Type: BLOOD SPECIMENOrdering Facility: [facility] Address: [address] [place] [address] Performed By: #### 2 4323-8 ####[facility]ORATORYCLIA [id number] [place] [address] [place] Bilirubin [Mass/Vol] 0.8 mg/dL Normal 0.2-1.3 [facility] Comment on above: Order Comment: Speci men Type: BLOOD SPECIMENOrdering Facility: [facility] Address: [address] [place] [address] Performed By: #### 2 4323-8 ####[facility]ORATORYCLIA [id number] [address] [place] Calcium [Mass/Vol] 7.7 mg/dL Low 8.5-10.2 [facility] Comment on above: Order Comment: Speci men Type: BLOOD SPECIMENOrdering Facility: [facility] Address: [address] [place] [address] Performed By: #### 2 4323-8 ####[facility]ORATORYCLIA [id number] [place] [address] [place] Chloride [Moles/Vol] 110 mmol/L High 98-107 [facility] Comment on above: Order Comment: Speci men Type: BLOOD SPECIMENOrdering Facility: [facility] Address: [address] [place] [address] Performed By: #### 2 4323-8 ####[facility] LABORATORYCLIA [id number] [place] [address] [place] CO2 [Moles/Vol] 23 mmol/L Normal 22-30 [facility] Comment on above: Order Comment: Speci men Type: BLOOD SPECIMENOrdering Facility: [facility] Address: [address] [place] [address] Performed By: #### 2 4323-8 ####[facility]PITALCLIA [id number] [address] [place] OF [facility] Creatinine [Mass/Vol] 0.60 mg/dL Low 0.73-1.22 [facility] Comment on above: Order Comment: Speci men Type: BLOOD SPECIMENOrdering Facility: [facility] Address: [address] [place] [address] Performed By: #### 2 4323-8 ####[facility]PITALCLIA [id number] [address] Creatinine and Glomerular filtration rate.predicted panel (S/P/Bld) 108 mL/min/1.73m??? Normal >=60 [facility] Comment on above: Order Comment: Speci men Type: BLOOD SPECIMENOrdering Facility: [facility] Address: [address] [place] [address] Result Comment: Leena mated Glomerular Filtration Rate [...] actual GFR. Performed By: #### 2 4323-8 ####[facility]ORATORYCLIA [id number] [address] OF [facility] Glucose [Mass/Vol] 90 mg/dL Normal 74-99 [facility] Comment on above: Order Comment: Speci men Type: BLOOD SPECIMENOrdering Facility: [facility] Address: [address] [place] [address] Result Comment: The [place] Diabetes Association (ADA) provides guidance for cutoff [...] Standards of Medical Care in Diabetes 2016, [place] [employer]. Diabetes Care. 2016.39(Suppl 1). Performed By: #### 2 4323-8 ####[facility]ORATORYCLIA [id number] [place] [address] [place] Potassium [Moles/Vol] 4.1 mmol/L Normal 3.7-5.1 [facility] Comment on above: Order Comment: Speci men Type: BLOOD SPECIMENOrdering Facility: [facility] Address: [address] [place] [address] Performed By: #### 2 4323-8 ####[facility]ORATORYCLIA [id number] [place] [address] [place] Protein [Mass/Vol] 5.7 g/dL Low 6.3-8.0 [facility] Comment on above: Order Comment: Speci men Type: BLOOD SPECIMENOrdering Facility: [facility] Address: [address] [place] [address] Performed By: #### 2 4323-8 ####[facility] LABORATORYCLIA [id number] [place] [address] [place] Sodium [Moles/Vol] 141 mmol/L Normal 136-144 [facility] Comment on above: Order Comment: Speci men Type: BLOOD SPECIMENOrdering Facility: [facility] Address: [address] [place] [address] Performed By: #### 2 4323-8 ####[facility]ORATORYCLIA [id number] [place] [address] [place] Urea nitrogen [Mass/Vol] 25 mg/dL High 9-24 [facility] Comment on above: Order Comment: Speci men Type: BLOOD SPECIMENOrdering Facility: [facility] Address: [address] [place] [address] Performed By: #### 2 4323-8 ####[facility]ORATORYCLIA [id number] [address] STATES OF [facility] CBC panel Auto (Bld)on 02-19 Erythrocyte distribution width (RBC) [Ratio] 14.8 % Normal 11.5-15.0 [facility] Comment on above: Order Comment: Speci men Type: BLOOD SPECIMENOrdering Facility: [facility] Address: [address] [place] [address] Performed By: #### 5 8410-2 ####[facility]ORATORYCLIA [id number] [address] Hematocrit (Bld) [Volume fraction] 32.5 % Low 39.0-51.0 [facility] Comment on above: Order Comment: Speci men Type: BLOOD SPECIMENOrdering Facility: [facility] Address: [address] [place] [address] Performed By: #### 5 8410-2 ####[facility] LABORATORYCLIA [id number] [address] [place] OF [facility] Hemoglobin (Bld) [Mass/Vol] 11.1 g/dL Low 13.0-17.0 [facility] Comment on above: Order Comment: Speci men Type: BLOOD SPECIMENOrdering Facility: [facility] Address: [address] [place] [address] Performed By: #### 5 8410-2 ####[facility] LABORATORYCLIA [id number] [address] STATES [facility] MCH (RBC) [Entitic mass] 30.5 pg Normal 26.0-34.0 [facility] Comment on above: Order Comment: Speci men Type: BLOOD SPECIMENOrdering Facility: [facility] Address: [address] [place] [address] Performed By: #### 5 8410-2 ####[facility]ORATORYCLIA [id number] [address] MCHC (RBC) [Mass/Vol] 34.2 g/dL Normal 30.5-36.0 [facility] Comment on above: Order Comment: Speci men Type: BLOOD SPECIMENOrdering Facility: [facility] Address: [address] [place] [address] Performed By: #### 5 8410-2 ####[facility]ORATORYCLIA [id number] [address] OF [facility] MCV (RBC) [Entitic vol] 89.3 fL Normal 80.0-100.0 [facility] Comment on above: Order Comment: Speci men Type: BLOOD SPECIMENOrdering Facility: [facility] Address: [address] [place] [address] Performed By: #### 5 8410-2 ####[facility] LABORATORYCLIA [id number] [address] Nucleated RBC (Bld) [#/Vol] 10*3/uL Normal <0.01 [facility] Comment on above: Order Comment: Speci men Type: BLOOD SPECIMENOrdering Facility: [facility] Address: [address] [place] [address] Performed By: #### 5 8410-2 ####[facility] LABORATORYCLIA [id number] [address] Platelet mean volume (Bld) [Entitic vol] 11.8 fL Normal 9.0-12.7 [facility] Comment on above: Order Comment: Speci men Type: BLOOD SPECIMENOrdering Facility: [facility] Address: [address] [place] [address] Performed By: #### 5 8410-2 ####[facility]ORATORYCLIA [id number] [address] [place] Platelets (Bld) [#/Vol] 87 10*3/uL Low 150-400 [facility] Comment on above: Order Comment: Speci men Type: BLOOD SPECIMENOrdering Facility: [facility] Address: [address] [place] [address] Result Comment: No c lot detected. Performed By: #### 5 8410-2 ####[facility]ORATORYCLIA [id number] [address] STATES OF [facility] RBC (Bld) [#/Vol] 3.64 10*6/uL Low 4.20-6.00 [facility] Comment on above: Order Comment: Speci men Type: BLOOD SPECIMENOrdering Facility: [facility] Address: [address] [place] [address] Performed By: #### 5 8410-2 ####[facility]ORATORYCLIA [id number] [address] OF [facility] WBC (Bld) [#/Vol] 9.94 10*3/uL Normal 3.70-11.00 [facility] Comment on above: Order Comment: Speci men Type: BLOOD SPECIMENOrdering Facility: [facility] Address: [address] [place] [address] Performed By: #### 5 8410-2 ####[facility] LABORATORYCLIA [id number] [address] CNPNon 02-19-2025 [facility] Telephone (SEAN) ANMOL REYNOLDS ([id number]) 1960 M Date Time Provider Department 02/19/25 ANMOL HERBERT During your visit today, we recorded the following information about you: Anmol Herbert MD 02/19/2025 2:58 PM Signed Needs outpt cysto, pyelograms, bilateral stent change vs removal in 2-3 weeks. Comfort Sotelo 03/08/2025 10:16 AM Signed Patient is scheduled and half-way was notified. Information was faxed. Comfort Sotelo Allergies As of Date: 02/19/2025 (No Known Allergies) Date Reviewed: 02/19/2025 Reviewed by: Belinda Orona RN - Fully Assessed Reason for Visit: Hospital [...] Comments as of 02/17/2025: Verified medications with [facility] 02/17/2025 Problem List As Of Date 02/19/2025 Noted Resolved NO SHOW [[id number]] 08/31/2013 05/29/2020 Perineal abscess [L02.215] 06/13/2019 05/29/2020 [...] status [R41.82 (more content not included)... Normal [facility] Calcium.ionized [Moles/Vol]o n 02-19-2025 Calcium.ionized (BldV) [Mass/Vol] 1.03 mmol/L Low 1.08-1.30 [facility] Comment on above: Order Comment: Speci men Type: BLOOD SPECIMENOrdering Facility: [facility] Address: [address] [place] [address] Performed By: #### 1 995-0 ####[facility]ATORYCLIA [id number] [place] [address] [place] Calcium.ionized adjusted to pH 7.4 (Bld) [Moles/Vol] 1.05 mmol/L Low 1.08-1.30 [facility] Comment on above: Order Comment: Speci men Type: BLOOD SPECIMENOrdering Facility: [facility] Address: [address] [place] [address] Performed By: #### 1 995-0 ####[facility] LABORATORYCLIA [id number] [address] Comprehensive metabolic 2000 panelon 02-19-2025 Albumin [Mass/Vol] 2.3 g/dL Low 3.9-4.9 [facility] Comment on above: Order Comment: Speci men Type: BLOOD SPECIMENOrdering Facility: [facility] Address: [address] [place] [address] Performed By: #### 2 4323-8 ####[facility] [facility] [place] [facility]ORYCLIA [id number] [address] ALP [Catalytic activity/Vol] 112 U/L Normal 38-113 [facility] Comment on above: Order Comment: Speci men Type: BLOOD SPECIMENOrdering Facility: [facility] Address: [address] [place] [address] Performed By: #### 2 4323-8 ####[facility] [place]ATORYCLIA [id number] [address] ALT With P-5'-P [Catalytic activity/Vol] 21 U/L Normal 10-54 [facility] Comment on above: Order Comment: Speci men Type: BLOOD SPECIMENOrdering Facility: [facility] Address: [address] [place] [address] Performed By: #### 2 4323-8 ####[facility] [place] [facility]ATORYCLIA [id number] [address] Anion gap [Moles/Vol] 10 mmol/L Normal 8-15 [facility] Comment on above: Order Comment: Speci men Type: BLOOD SPECIMENOrdering Facility: [facility] Address: [address] [place] [address] Performed By: #### 2 4323-8 ####[facility]ORATORYCLIA [id number] [place] [address] [place] AST With P-5'-P [Catalytic activity/Vol] 25 U/L Normal 14-40 [facility] Comment on above: Order Comment: Speci men Type: BLOOD SPECIMENOrdering Facility: [facility] Address: [address] [place] [address] Performed By: #### 2 4323-8 ####[facility] [place]ATORYCLIA [id number] [place] [address] [place] Bilirubin [Mass/Vol] 0.5 mg/dL Normal 0.2-1.3 [facility] Comment on above: Order Comment: Speci men Type: BLOOD SPECIMENOrdering Facility: [facility] Address: [address] [place] [address] Performed By: #### 2 4323-8 ####[facility] [place]ATORYCLIA [id number] [place] [address] [place] Calcium [Mass/Vol] 7.8 mg/dL Low 8.5-10.2 [facility] Comment on above: Order Comment: Speci men Type: BLOOD SPECIMENOrdering Facility: [facility] Address: [address] [place] [address] Performed By: #### 2 4323-8 ####[facility] [place]ATORYCLIA [id number] [place] [address] [place] Chloride [Moles/Vol] 106 mmol/L Normal 98-107 [facility] Comment on above: Order Comment: Speci men Type: BLOOD SPECIMENOrdering Facility: [facility] Address: [address] [place] [address] Performed By: #### 2 4323-8 ####[facility]ATORYCLIA [id number] [place] [address] [place] CO2 [Moles/Vol] 21 mmol/L Low 22-30 [facility] Comment on above: Order Comment: Speci men Type: BLOOD SPECIMENOrdering Facility: [facility] Address: [address] [place] [address] Performed By: #### 2 4323-8 ####[facility]ITALCL[facility] [id number] [address] STATES OF [facility] Creatinine [Mass/Vol] 0.64 mg/dL Low 0.73-1.22 [facility] Comment on above: Order Comment: Jg valdez Type: BLOOD SPECIMENOrdering Facility: [facility] Address: [address] [place] [address] Performed By: #### 2 4323-8 ####[facility]ITALCLIA [id number] [address] Creatinine and Glomerular filtration rate.predicted panel (S/P/Bld) 106 mL/min/1.73m??? Normal >=60 [facility] Comment on above: Order Comment: Jg valdez Type: BLOOD SPECIMENOrdering Facility: [facility] Address: [address] [place] [address] Result Comment: Leena mated Glomerular Filtration Rate [...] actual GFR. Performed By: #### 2 4323-8 ####[facility] [place] [facility]ATORYCLIA [id number] [address] [place] Glucose [Mass/Vol] 115 mg/dL High 74-99 [facility] Comment on above: Order Comment: Jg valdez Type: BLOOD SPECIMENOrdering Facility: [facility] Address: [address] [place] [address] Result Comment: The [place] Diabetes Association (ADA) provides guidance for cutoff [...] Standards of Medical Care in Diabetes 2016, [place] [employer]. Diabetes Care. 2016.39(Suppl 1). Performed By: #### 2 4323-8 ####[facility] [place] [facility]ATORYCLIA [id number] [address] [place] Potassium [Moles/Vol] 3.7 mmol/L Normal 3.7-5.1 [facility] Comment on above: Order Comment: [place] men Type: BLOOD SPECIMENOrdering Facility: [facility] Address: [address] [place] [address] Performed By: #### 2 4323-8 ####[facility] [place] [facility]ATORYCLIA [id number] [place] [address] [place] Protein [Mass/Vol] 5.5 g/dL Low 6.3-8.0 [facility] Comment on above: Order Comment: [place] courtney Type: BLOOD SPECIMENOrdering Facility: [facility] Address: [address] [place] [address] Performed By: #### 2 4323-8 ####[facility] [place]ATORYCLIA [id number] [place] [address] [place] Sodium [Moles/Vol] 137 mmol/L Normal 136-144 [facility] Comment on above: Order Comment: Speci men Type: BLOOD SPECIMENOrdering Facility: [facility] Address: [address] [place] [address] Performed By: #### 2 4323-8 ####[facility] [place] [facility]ATORYCLIA [id number] [place] [address] [place] Urea nitrogen [Mass/Vol] 36 mg/dL High 9-24 [facility] Comment on above: Order Comment: [place] men Type: BLOOD SPECIMENOrdering Facility: [facility] Address: [address] [place] [address] Performed By: #### 2 4323-8 ####[facility] [place]ATORYCLIA [id number] [place] [address] [place] OF [facility] Urine Cultureon 02-19-2025 URC 412-25 Citrobacter freundii [place] Count 80,000-100,000 Providencia stuartii Providencia stuartii PMIR [place] Count >100,000 Proteus mirabilis [place] Count 25,000-50,000 Citrobacter freundii: REACTION Enterococcus faecalis [...] >=16 R Vancomycin Islt HARINDER [facility] Comment on above: Performed By: #### L 100.0500, L500.2500 #### [facility] [address] [place], [address] aPTT PPPon 02-19-2025 aPTT Coag (PPP) [Time] 68.5 s High 23.0-32.[address] [facility] Comment on above: Order Comment: Speci men Type: BLOOD SPECIMENOrdering Facility: [facility] Address: [address] [place] [address] Performed By: #### 1 4979-9 ####[facility]PITALCLIA [id number] [address] [place] aPTT Coag (PPP) [Time] 71.1 s High 23.0-32.[address] [facility] Comment on above: Order Comment: Speci men Type: BLOOD SPECIMENOrdering Facility: [facility] Address: [address] [place] [address] Performed By: #### 1 4979-9 ####[facility]ITALCLIA [id number] [address] STATES OF [facility] CBC panel Auto (Bld)on 02-18 Erythrocyte distribution width (RBC) [Ratio] 14.9 % Normal 11.5-15.0 [facility] Comment on above: Order Comment: Speci men Type: BLOOD SPECIMENOrdering Facility: [facility] Address: [address] [place] [address] Performed By: #### 5 8410-2 ####[facility]PITALCLIA [id number] [address] Hematocrit (Bld) [Volume fraction] 33.9 % Low 39.0-51.0 [facility] Comment on above: Order Comment: Speci men Type: BLOOD SPECIMENOrdering Facility: [facility] Address: [address] [place] [address] Performed By: #### 5 8410-2 ####[facility]PITALCLIA [id number] [address] Hemoglobin (Bld) [Mass/Vol] 11.3 g/dL Low 13.0-17.0 [facility] Comment on above: Order Comment: Speci men Type: BLOOD SPECIMENOrdering Facility: [facility] Address: [address] [place] [address] Performed By: #### 5 8410-2 ####[facility] [place] [facility]ATORYCLIA [id number] [address] MCH (RBC) [Entitic mass] 30.3 pg Normal 26.0-34.0 [facility] Comment on above: Order Comment: Speci men Type: BLOOD SPECIMENOrdering Facility: [facility] Address: [address] [place] [address] Performed By: #### 5 8410-2 ####[facility] [place] [facility]ATORYCLIA [id number] [address] OF [facility] MCHC (RBC) [Mass/Vol] 33.3 g/dL Normal 30.5-36.0 [facility] Comment on above: Order Comment: Speci men Type: BLOOD SPECIMENOrdering Facility: [facility] Address: [address] [place] [address] Performed By: #### 5 8410-2 ####[facility] [place] [facility]ATORYCLIA [id number] [address] MCV (RBC) [Entitic vol] 90.9 fL Normal 80.0-100.0 [facility] Comment on above: Order Comment: Speci men Type: BLOOD SPECIMENOrdering Facility: [facility] Address: [address] [place] [address] Performed By: #### 5 8410-2 ####[facility] [place] [facility]ATORYCLIA [id number] [address] Nucleated RBC (Bld) [#/Vol] 10*3/uL Normal <0.01 [facility] Comment on above: Order Comment: Speci men Type: BLOOD SPECIMENOrdering Facility: [facility] Address: [address] [place] [address] Performed By: #### 5 8410-2 ####[facility] [place] [facility]ATORYCLIA [id number] [address] [place] Platelet mean volume (Bld) [Entitic vol] 11.9 fL Normal 9.0-12.7 [facility] Comment on above: Order Comment: Speci men Type: BLOOD SPECIMENOrdering Facility: [facility] Address: [address] [place] [address] Performed By: #### 5 8410-2 ####[facility] [place] [facility]ATORYCLIA [id number] [place] [address] [place] Platelets (Bld) [#/Vol] 69 10*3/uL Low 150-400 [facility] Comment on above: Order Comment: Speci men Type: BLOOD SPECIMENOrdering Facility: [facility] Address: [address] [place] [address] Result Comment: No c lot detected. Performed By: #### 5 8410-2 ####[facility]ITALCLIA [id number] [address] [place] RBC (Bld) [#/Vol] 3.73 10*6/uL Low 4.20-6.00 [facility] Comment on above: Order Comment: Speci men Type: BLOOD SPECIMENOrdering Facility: [facility] Address: [address] [place] [address] Performed By: #### 5 8410-2 ####[facility] [place] [facility]ATORYCLIA [id number] [address] [place] WBC (Bld) [#/Vol] 13.39 10*3/uL High 3.70-11.00 [facility] Comment on above: Order Comment: Speci men Type: BLOOD SPECIMENOrdering Facility: [facility] Address: [address] [place] [address] Performed By: #### 5 8410-2 ####[facility] [place] [facility]ATORYCLIA [id number] [address] OF [facility] CONSULT PROGon 02-18-2025 CONSULT PROG HNO ID: [id number] Author: TIMMY MARTINEZ RPh Service: Pharmacy Author [...] there are questions. Timmy Martinez RPh [facility] CONSULT PROG HNO ID: [id number] Author: RADHA GRAHAM RPh Service: Pharmacy Author [...] any questions, please contact Radha Graham at [phone]. Estimated Creatinine Clearance: 86.2 mL/min (based on [...] Ht: 02/16/2025 180.3 cm (5' 11") Radha Graham, [facility] February 18, 2025 7:17 AM Normal [facility] Calcium.ionized [Moles/Vol]o n 02-18-2025 Calcium.ionized (BldV) [Mass/Vol] 1.07 mmol/L Low 1.08-1.30 [facility] Comment on above: Order Comment: Speci men Type: BLOOD SPECIMENOrdering Facility: [facility] Address: [address] [place] [address] Performed By: #### 1 995-0 ####[facility] [place] [facility]ATORYCLIA [id number] [address] Calcium.ionized adjusted to pH 7.4 (Bld) [Moles/Vol] 1.07 mmol/L Low 1.08-1.30 [facility] Comment on above: Order Comment: Speci men Type: BLOOD SPECIMENOrdering Facility: [facility] Address: [address] [place] [address] Performed By: #### 1 995-0 ####[facility] [place] [facility]ATORYCLIA [id number] [address] OF [facility] Comprehensive metabolic 2000 panelon 02-18-2025 Albumin [Mass/Vol] 2.3 g/dL Low 3.9-4.9 [facility] Comment on above: Order Comment: Speci men Type: BLOOD SPECIMENOrdering Facility: [facility] Address: [address] [place] [address] Performed By: #### 2 4323-8, 05598-7 ####[facility] [place] [facility]ATORYCLIA [id number] [address] ALP [Catalytic activity/Vol] 115 U/L High 38-113 [facility] Comment on above: Order Comment: Speci men Type: BLOOD SPECIMENOrdering Facility: [facility] Address: [address] [place] [address] Performed By: #### 2 4323-8, ####[facility]ORATORYCLIA [id number] [place] [address] [place] ALT With P-5'-P [Catalytic activity/Vol] 25 U/L Normal 10-54 [facility] Comment on above: Order Comment: Speci men Type: BLOOD SPECIMENOrdering Facility: [facility] Address: [address] [place] [address] Performed By: #### 2 43238, ####[facility]ORATORYCLIA [id number] [place] [id number] [place] Anion gap [Moles/Vol] 11 mmol/L Normal 8-15 [facility] Comment on above: Order Comment: Speci men Type: BLOOD SPECIMENOrdering Facility: [facility] Address: [address] [place] [address] Performed By: #### 2 4328, ####[facility] [place] [facility]ATORYCLIA [id number] [address] STATES OF [facility] AST With P-5'-P [Catalytic activity/Vol] 38 U/L Normal 14-40 [facility] Comment on above: Order Comment: Speci men Type: BLOOD SPECIMENOrdering Facility: [facility] Address: [address] [place] [address] Performed By: #### 2 43238, ####[facility] [place] [facility]ATORYCLIA [id number] [place] [address] [place] Bilirubin [Mass/Vol] 0.6 mg/dL Normal 0.2-1.3 [facility] Comment on above: Order Comment: Speci men Type: BLOOD SPECIMENOrdering Facility: [facility] Address: [address] [place] [address] Performed By: #### 2 4323-8, ####[facility] [place] [facility]ATORYCLIA [id number] [place] [id number] [place] Calcium [Mass/Vol] 7.8 mg/dL Low 8.5-10.2 [facility] Comment on above: Order Comment: Speci men Type: BLOOD SPECIMENOrdering Facility: [facility] Address: [address] [place] [address] Performed By: #### 2 4323-8, ####[facility] [place] [facility]ATORYCLIA [id number] [place] [address] [place] Chloride [Moles/Vol] 104 mmol/L Normal 98-107 [facility] Comment on above: Order Comment: Speci men Type: BLOOD SPECIMENOrdering Facility: [facility] Address: [address] [place] [address] Performed By: #### 2 43212-10, ####[facility] [place] [facility]ATORYCLIA [id number] [place] [id number] [place] CO2 [Moles/Vol] 20 mmol/L Low 22-30 [facility] Comment on above: Order Comment: Speci men Type: BLOOD SPECIMENOrdering Facility: [facility] Address: [address] [place] [address] Performed By: #### 2 432-8, ####[facility] [place] [facility]ATORYCLIA [id number] [place] [address] [place] Creatinine [Mass/Vol] 1.04 mg/dL Normal 0.73-1.22 [facility] Comment on above: Order Comment: Speci men Type: BLOOD SPECIMENOrdering Facility: [facility] Address: [address] [place] [address] Performed By: #### 2 432-8, ####[facility] [place] [facility]ATORYCLIA [id number] [address] OF [place] Creatinine and Glomerular filtration rate.predicted panel (S/P/Bld) 81 mL/min/1.73m??? Normal >=60 [facility] Comment on above: Order Comment: Speci men Type: BLOOD SPECIMENOrdering Facility: [facility] Address: [address] [place] [address] Result Comment: Leena mated Glomerular Filtration Rate [...] actual GFR. Performed By: #### 2 4323-8, ####[facility] [place] [facility]ATORYCLIA [id number] [place] [address] [place] Glucose [Mass/Vol] 177 mg/dL High 74-99 [facility] Comment on above: Order Comment: Jg valdez Type: BLOOD SPECIMENOrdering Facility: [facility] Address: [address] [place] [address] Result Comment: The [place] Diabetes Association (ADA) provides guidance for cutoff [...] Standards of Medical Care in Diabetes 2016, [place] [employer]. Diabetes Care. 2016.39(Suppl 1). Performed By: #### 2 432-8, ####[facility] [place] [facility]ATORYCLIA [id number] [place] [address] [place] Potassium [Moles/Vol] 3.9 mmol/L Normal 3.7-5.1 [facility] Comment on above: Order Comment: Jg valdez Type: BLOOD SPECIMENOrdering Facility: [facility] Address: [address] [place] [address] Performed By: #### 2 4328, ####[facility] [place] [facility]ATORYCLIA [id number] [place] [address] [place] Protein [Mass/Vol] 5.8 g/dL Low 6.3-8.0 [facility] Comment on above: Order Comment: Speci men Type: BLOOD SPECIMENOrdering Facility: [facility] Address: [address] [place] [address] Performed By: #### 2 4323-8, ####[facility]ORYCLIA [id number] [place] [address] [place] Sodium [Moles/Vol] 135 mmol/L Low 136-144 [facility] Comment on above: Order Comment: Speci men Type: BLOOD SPECIMENOrdering Facility: [facility] Address: [address] [place] [address] Performed By: #### 2 4323-8, ####[facility] [place] [facility]ATORYCLIA [id number] [address] STATES OF [facility] Urea nitrogen [Mass/Vol] 37 mg/dL High 9-24 [facility] Comment on above: Order Comment: Speci men Type: BLOOD SPECIMENOrdering Facility: [facility] Address: [address] [place] [address] Performed By: #### 2 4323-8, ####[facility]ORYCLIA [id number] [place] [address] [place] Magnesium SerPl-mCncon 02-18 Magnesium [Mass/Vol] 2.3 mg/dL Normal 1.7-2.3 [facility] Comment on above: Order Comment: Speci men Type: BLOOD SPECIMENOrdering Facility: [facility] Address: [address] [place] [address] Performed By: #### 2 4323-8, ####[facility]ATORYCLIA [id number] [place] [id number] [place] aPTT PPPon 02-18-2025 aPTT Coag (PPP) [Time] 40.2 s High 23.0-32.[address] [facility] Comment on above: Order Comment: Speci men Type: BLOOD SPECIMENOrdering Facility: [facility] Address: [address] [place], [place] [address] Performed By: #### 1 4979-9 ####[facility]ATORYCLIA [id number] [address] aPTT Coag (PPP) [Time] 35.5 s High 23.0-32.[address] [facility] Comment on above: Order Comment: Speci men Type: BLOOD SPECIMENOrdering Facility: [facility] Address: [address] [place] [address] Performed By: #### 1 4979-9 ####[facility]ATORYCLIA [id number] [address] aPTT Coag (PPP) [Time] 33.2 s High 23.0-32.[address] [facility] Comment on above: Order Comment: Speci men Type: BLOOD SPECIMENOrdering Facility: [facility] Address: [address] [place] [address] Performed By: #### 1 4979-9 ####[facility]ATORYCLIA [id number] [address] aPTT Coag (PPP) [Time] 51.0 s High 23.0-32.[address] [facility] Comment on above: Order Comment: Speci men Type: BLOOD SPECIMENOrdering Facility: [facility] Address: [address] [place] [address] Performed By: #### 1 4979-9 ####[facility]ATORYCLIA [id number] [address] ALLIED HEALTHon 02-17-2025 ALLIED HEALTH HNO ID: [id number] Author: JANEL SIMEON RT(Ector) Service: Radiology Author [...] PATIENT PRESENTS WITH AN IMPLANTABLE OR ATTACHED PLEATING SUPERVISOR: No RADIOLOGY DEPARTMENT: General X-ray: Exam(s) Completed: Abdomen X-Ray: Abdomen PERIPHERAL IV DATA: Not applicable SIGNED BY: RT Chelita(R) February 17, 2025 7:57 AM Normal [facility] Bacteria Spec Resp Culton [...] , Intermediate >4 , Resistant >8 Abnormal [facility] Comment on above: Performed By: #### 3 2355-0 ####[facility]ATORYCLIA [id number] [address] CBC panel Auto (Bld)on 02-17 Erythrocyte distribution width (RBC) [Ratio] 15.0 % Normal 11.5-15.0 [facility] Comment on above: Order Comment: Speci men Type: BLOOD SPECIMENOrdering Facility: [facility] Address: [address] [place] [address] Performed By: #### 5 8410-2 ####[facility]ITALCLIA [id number] [address] Hematocrit (Bld) [Volume fraction] 41.4 % Normal 39.0-51.0 [facility] Comment on above: Order Comment: Speci men Type: BLOOD SPECIMENOrdering Facility: [facility] Address: [address] [place] [address] Performed By: #### 5 8410-2 ####[facility]ATORYCLIA [id number] [address] Hemoglobin (Bld) [Mass/Vol] 13.1 g/dL Normal 13.0-17.0 [facility] Comment on above: Order Comment: Speci men Type: BLOOD SPECIMENOrdering Facility: [facility] Address: [address] [place] [address] Performed By: #### 5 8410-2 ####[facility]ATORYCLIA [id number] [address] [place] MCH (RBC) [Entitic mass] 29.9 pg Normal 26.0-34.0 [facility] Comment on above: Order Comment: Speci men Type: BLOOD SPECIMENOrdering Facility: [facility] Address: [address] [place] [address] Performed By: #### 5 8410-2 ####[facility]ATORYCLIA [id number] [address] MCHC (RBC) [Mass/Vol] 31.6 g/dL Normal 30.5-36.0 [facility] Comment on above: Order Comment: Speci men Type: BLOOD SPECIMENOrdering Facility: [facility] Address: [address] [place] [address] Performed By: #### 5 8410-2 ####[facility] [place]ATORYCLIA [id number] [address] MCV (RBC) [Entitic vol] 94.5 fL Normal 80.0-100.0 [facility] Comment on above: Order Comment: Speci men Type: BLOOD SPECIMENOrdering Facility: [facility] Address: [address] [place] [address] Performed By: #### 5 8410-2 ####[facility]ATORYCLIA [id number] [address] Nucleated RBC (Bld) [#/Vol] 10*3/uL Normal <0.01 [facility] Comment on above: Order Comment: Speci men Type: BLOOD SPECIMENOrdering Facility: [facility] Address: [address] [place] [address] Performed By: #### 5 8410-2 ####[facility]ATORYCLIA [id number] [address] Platelet mean volume (Bld) [Entitic vol] 12.0 fL Normal 9.0-12.7 [facility] Comment on above: Order Comment: Speci men Type: BLOOD SPECIMENOrdering Facility: [facility] Address: [address] [place] [address] Performed By: #### 5 8410-2 ####[facility]ATORYCLIA [id number] [address] [facility] Platelets (Bld) [#/Vol] 64 10*3/uL Low 150-[address] [facility] Comment on above: Order Comment: Speci men Type: BLOOD SPECIMENOrdering Facility: [facility] Address: [address] [place] [address] Result Comment: No c lot detected. Performed By: #### 5 8410-2 ####[facility] [place]ATORYCLIA [id number] [address] OF [facility] RBC (Bld) [#/Vol] 4.38 10*6/uL Normal 4.20-6.00 [facility] Comment on above: Order Comment: Speci men Type: BLOOD SPECIMENOrdering Facility: [facility] Address: [address] [place] [address] Performed By: #### 5 8410-2 ####[facility] LABORATORYCLIA [id number] [address] WBC (Bld) [#/Vol] 14.96 10*3/uL High 3.70-11.00 [facility] Comment on above: Order Comment: Speci men Type: BLOOD SPECIMENOrdering Facility: [facility] Address: [address] [place] [address] Performed By: #### 5 8410-2 ####[facility] LABORATORYCLIA [id number] [address] Erythrocyte distribution width (RBC) [Ratio] 14.8 % Normal 11.5-15.0 [facility] Comment on above: Order Comment: Speci men Type: BLOOD SPECIMENOrdering Facility: [facility] Address: [address] [place] [address] Performed By: #### 5 8410-2 ####[facility] LABORATORYCLIA [id number] [address] Hematocrit (Bld) [Volume fraction] 36.6 % Low 39.0-51.0 [facility] Comment on above: Order Comment: Speci men Type: BLOOD SPECIMENOrdering Facility: [facility] Address: [address] [place] [address] Performed By: #### 5 8410-2 ####[facility] LABORATORYCLIA [id number] [address] Hemoglobin (Bld) [Mass/Vol] 11.9 g/dL Low 13.0-17.0 [facility] Comment on above: Order Comment: Speci men Type: BLOOD SPECIMENOrdering Facility: [facility] Address: [address] [place] [address] Performed By: #### 5 8410-2 ####[facility] LABORATORYCLIA [id number] [address] MCH (RBC) [Entitic mass] 30.1 pg Normal 26.0-34.0 [facility] Comment on above: Order Comment: Speci men Type: BLOOD SPECIMENOrdering Facility: [facility] Address: [address] [place] [address] Performed By: #### 5 8410-2 ####[facility] LABORATORYCLIA [id number] [address] MCHC (RBC) [Mass/Vol] 32.5 g/dL Normal 30.5-36.0 [facility] Comment on above: Order Comment: Speci men Type: BLOOD SPECIMENOrdering Facility: [facility] Address: [address] [place] [address] Performed By: #### 5 8410-2 ####[facility] LABORATORYCLIA [id number] [address] MCV (RBC) [Entitic vol] 92.7 fL Normal 80.0-100.0 [facility] Comment on above: Order Comment: Speci men Type: BLOOD SPECIMENOrdering Facility: [facility] Address: [address] [place] [address] Performed By: #### 5 8410-2 ####[facility] LABORATORYCLIA [id number] [address] Nucleated RBC (Bld) [#/Vol] 10*3/uL Normal <0.01 [facility] Comment on above: Order Comment: Speci men Type: BLOOD SPECIMENOrdering Facility: [facility] Address: [address] [place] [address] Performed By: #### 5 8410-2 ####[facility] LABORATORYCLIA [id number] [place] [address] [place] Platelet mean volume (Bld) [Entitic vol] 11.7 fL Normal 9.0-12.7 [facility] Comment on above: Order Comment: Speci men Type: BLOOD SPECIMENOrdering Facility: [facility] Address: [address] [place] [address] Performed By: #### 5 8410-2 ####[facility] LABORATORYCLIA [id number] [address] [place] Platelets (Bld) [#/Vol] 93 10*3/uL Low 150-400 [facility] Comment on above: Order Comment: Speci men Type: BLOOD SPECIMENOrdering Facility: [facility] Address: [address] [place] [address] Result Comment: No c lot detected. Performed By: #### 5 8410-2 ####[facility] LABORATORYCLIA [id number] [place] [address] [place] RBC (Bld) [#/Vol] 3.95 10*6/uL Low 4.20-6.00 [facility] Comment on above: Order Comment: Speci men Type: BLOOD SPECIMENOrdering Facility: [facility] Address: [address] [place] [address] Performed By: #### 5 8410-2 ####[facility] LABORATORYCLIA [id number] [place] [address] [place] WBC (Bld) [#/Vol] 19.64 10*3/uL High 3.70-11.00 [facility] Comment on above: Order Comment: Speci men Type: BLOOD SPECIMENOrdering Facility: [facility] Address: [address] [place] [address] Performed By: #### 5 8410-2 ####[facility] LABORATORYCLIA [id number] [place] [address] [facility] [place] CONSULTon 02-17-2025 CONSULT HNO ID: [id number] Author: GAYLE SCOTT MD Service: Infectious Disease [...] and UTI. Spinal cord injury residing at [facility], [facility]/16/2025 for unresponsiveness when normally alert [...] that although she was not at the half-way she was called and told he was [...] 12.5 g (more content not included)... Normal [facility] CONSULT HNO ID: [id number] Author: ANMOL HERBERT MD Service: Urology Author Type: Resident Type: Consults Filed: 02/19/2025 14:56 Note Text: Attestation signed by Anmol Herbert MD at 02/19/2025 2:56 PM I saw and evaluated the patient. Discussed with the resident and agree with resident's findings and plan as documented in the resident's note. Reviewed [facility] hx and imaging. Currently improving. Discussed plan w/ ID (Dr. Scott) Plan on outpt cysto, pyelograms, stent change vs removal in 2-3 weeks. 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/2022 MRSA bacteremia 11/27/2021 Neuropathy Nicotine use disorder, F17.2 06/14/2019 Pilonidal cyst with abscess 12/31/2020 Pilonidal cyst without abscess 05/29/2020 Pyelonephritis 11/27/2021 Sciatica Severe protein-calorie malnutrition (HCC) 09/04/2021 Type 2 diabetes mellitus with hyperglycemia, with long-term current use of insulin ([facility]) 01/18/2021 Ureteral stone 11/25/2021 UTI (urinary tract infection) 11/26/2021 Vertebral osteomyelitis ([facility]) 01/04/2022 PAST SURGICAL HISTORY: PAST SURGICAL HISTORY [...] Rfl: me (more content not included)... Normal [facility] CONSULT PROGozulema 02-17-2025 CONSULT PROG HNO ID: [id number] Author: JESSICA CLEMENT RPh Service: Pharmacy Author [...] level has been ordered for 02/18/25 at 1999. (Completed) Scr still significantly above baseline so [...] questions, [place] [phone]. Age: [age] year old Allergies: ALLERGIES No [...] 0106 5.0 (L) Vancomycin (ug/mL) Date/Time Value 02/17/2025 2010 6.1 (L) 12/02/2021 1246 13.7 Jessica Clement [facility] CONSULT PROG HNO ID: [id number] Author: YARI CAMARGO APRN.[employer]OU[employer]ER [employer]ER Service: Wound/Ostomy Author Type: Nurse Practitioner Type: Consult Progress Note Filed: 02/17/2025 10:33 Note Text: Summary: Inpatient Wound Care WOUND CARE SERVICE CONSULT PRESS BREAKER NOTE SERVICE DATE: 02/17/2025 SERVICE TIME: 0809 [...] who is seen today with Katlin Vasquez, Wound/bingo checker, and presented to hospital with complaints of [...] (MERREM) 2 g INTRAVENOUS q 12 H p vancomycin dosing and monitoring per pharmacy OTHER [...] PRN cyc (more content not included)... Normal [facility] CONSULT PROG HNO ID: [id number] Author: RUBI RIVER RPh Service: Pharmacy Author Type: Pharmacist Type: [...] dose of therapy given in ER @ 2137 on 02-16-2025 of Vancomycin 1.5 grams IV once. Patient currently in MK. 2. No vancomycin level has been drawn [...] have any questions, [place] [phone]. Age: [age] year old Allergies: ALLERGIES No [...] 12/02/2021 1246 13.7 12/01/2021 0428 14.2 [place], [facility] Normal [facility] Comprehensive metabolic 2000 panelon 02-17-2025 Albumin [Mass/Vol] 2.5 g/dL Low 3.9-4.9 [facility] Comment on above: Order Comment: Speci men Type: BLOOD SPECIMENOrdering Facility: [facility] Address: [address] [place] [address] Performed By: #### 2 777-1, 63682-3 ####[facility] LABORATORYCLIA [id number] [address] [place] ALP [Catalytic activity/Vol] 174 U/L High 38-113 [facility] Comment on above: Order Comment: Speci men Type: BLOOD SPECIMENOrdering Facility: [facility] Address: [address] [place] [address] Performed By: #### 2 777-1, 39429-7 ####[facility] LABORATORYCLIA [id number] [place] [address] [place] ALT With P-5'-P [Catalytic activity/Vol] 21 U/L Normal 10-54 [facility] Comment on above: Order Comment: Speci men Type: BLOOD SPECIMENOrdering Facility: [facility] Address: [address] [place] [address] Performed By: #### 2 777-1, 72398-2 ####[facility] LABORATORYCLIA [id number] [address] [place] Anion gap [Moles/Vol] 11 mmol/L Normal 8-15 [facility] Comment on above: Order Comment: Speci men Type: BLOOD SPECIMENOrdering Facility: [facility] Address: [address] [place] [address] Performed By: #### 2 777-1, 69335-4 ####[facility] LABORATORYCLIA [id number] [place] [address] [place] AST With P-5'-P [Catalytic activity/Vol] 41 U/L High 14-40 [facility] Comment on above: Order Comment: Speci men Type: BLOOD SPECIMENOrdering Facility: [facility] Address: [address] [place] [address] Performed By: #### 2 777-1, 46829-7 ####[facility] LABORATORYCLIA [id number] [place] [address] [place] Bilirubin [Mass/Vol] 0.9 mg/dL Normal 0.2-1.3 [facility] Comment on above: Order Comment: Speci men Type: BLOOD SPECIMENOrdering Facility: [facility] Address: [address] [place] [address] Performed By: #### 2 777-1, 37020-1 ####[facility] LABORATORYCLIA [id number] [place] [address] [place] Calcium [Mass/Vol] 8.2 mg/dL Low 8.5-10.2 [facility] Comment on above: Order Comment: Speci men Type: BLOOD SPECIMENOrdering Facility: [facility] Address: [address] [place] [address] Performed By: #### 2 777-1, 43878-9 ####[facility] LABORATORYCLIA [id number] [place] [address] [place] Chloride [Moles/Vol] 104 mmol/L Normal 98-107 [facility] Comment on above: Order Comment: Speci men Type: BLOOD SPECIMENOrdering Facility: [facility] Address: [address] [place] [address] Performed By: #### 2 777-1, 14038-9 ####[facility] LABORATORYCLIA [id number] [place] [address] [place] [facility] CO2 [Moles/Vol] 17 mmol/L Low 22-30 [facility] Comment on above: Order Comment: Speci men Type: BLOOD SPECIMENOrdering Facility: [facility] Address: [address] [place] [address] Performed By: #### 2 777-1, 19282-7 ####[facility] LABORATORYCLIA [id number] [place] [address] [place] Creatinine [Mass/Vol] 1.90 mg/dL High 0.73-1.22 [facility] Comment on above: Order Comment: Speci men Type: BLOOD SPECIMENOrdering Facility: [facility] Address: [address] [place] [address] Performed By: #### 2 777-1, 30540-1 ####[facility]ITALCLIA [id number] [address] Creatinine and Glomerular filtration rate.predicted panel (S/P/Bld) 39 mL/min/1.73m??? Low >=60 [facility] Comment on above: Order Comment: Speci men Type: BLOOD SPECIMENOrdering Facility: [facility] Address: [address] [place] [address] Result Comment: Leena mated Glomerular Filtration Rate [...] actual GFR. Performed By: #### 2 777-1, 40882-7 ####[facility] LABORATORYCLIA [id number] [address] [place] Glucose [Mass/Vol] 225 mg/dL High 74-99 [facility] Comment on above: Order Comment: Speci men Type: BLOOD SPECIMENOrdering Facility: [facility] Address: [address] [place] [address] Result Comment: The [place] Diabetes Association (ADA) provides guidance for cutoff [...] Standards of Medical Care in Diabetes 2016, [place] [employer]. Diabetes Care. 2016.39(Suppl 1). Performed By: #### 2 777-1, 41838-2 ####[facility] LABORATORYCLIA [id number] [place] [address] [place] Potassium [Moles/Vol] 4.7 mmol/L Normal 3.7-5.1 [facility] Comment on above: Order Comment: Speci men Type: BLOOD SPECIMENOrdering Facility: [facility] Address: [address] [place], [place] [address] Performed By: #### 2 777-1, 61637-7 ####[facility] LABORATORYCLIA [id number] [place] [address] [place] Protein [Mass/Vol] 6.0 g/dL Low 6.3-8.0 [facility] Comment on above: Order Comment: Speci men Type: BLOOD SPECIMENOrdering Facility: [facility] Address: [address] [place] [address] Performed By: #### 2 777-1, 61475-3 ####[facility] LABORATORYCLIA [id number] [place] [address] [place] Sodium [Moles/Vol] 132 mmol/L Low 136-144 [facility] Comment on above: Order Comment: Speci men Type: BLOOD SPECIMENOrdering Facility: [facility] Address: [address] [place] [address] Performed By: #### 2 777-1, 64833-4 ####[facility] LABORATORYCLIA [id number] [place] [address] [place] Urea nitrogen [Mass/Vol] 34 mg/dL High 9-24 [facility] Comment on above: Order Comment: Speci men Type: BLOOD SPECIMENOrdering Facility: [facility] Address: [address] [place] [place] [address] Performed By: #### 2 777-1, 40198-0 ####[facility] LABORATORYCLIA [id number] [place] [address] [place] ECG COMPLETEon 02-17-2025 ECG COMPLETE Ventricular Rate : 152 BPM QRS Duration : 100 ms Q-T Interval : 300 ms QTC Calculation(Bazett) : 477 ms Calculated R [place] : 16 degrees Calculated T [place] : 7 degrees ATRIAL FIBRILLATION WITH RAPID VENTRICULAR RESPONSE NONSPECIFIC T WAVE ABNORMALITY ABNORMAL ECG WHEN COMPARED WITH ECG OF 16-Feb-2025 19:16, ATRIAL FIBRILLATION HAS REPLACED SINUS RHYTHM NONSPECIFIC T WAVE ABNORMALITY NOW EVIDENT IN INFERIOR LEADS Confirmed by MANISHA ANDERSEN MD ([id number]) on 02/17/2025 9:11:43 AM NAME : ANMOL REYNOLDS PID : [id number] : 1960 Gender : Male Race : ORD : [id number] Procedure Date : Feb 17 2025 07:55:31 Edit Date : Feb 17 2025 09:11:44 Diagnosis: ATRIAL FIBRILLATION WITH RAPID VENTRICULAR RESPONSE NONSPECIFIC T WAVE ABNORMALITY ABNORMAL ECG WHEN COMPARED WITH ECG OF 16-Feb-2025 19:16, ATRIAL FIBRILLATION HAS REPLACED SINUS RHYTHM NONSPECIFIC T WAVE ABNORMALITY NOW EVIDENT IN INFERIOR LEADS Confirmed by MANISHA ANDERSEN MD ([id number]) on 02/17/2025 9:11:43 AM Test Reason : Arrhythmia Location : 200 : [facility] 4819 Overread By : MANISHA ANDERSEN MD Edited By : MANISHA ANDERSEN MD Referred By : , Acquired by : SANDHYA ABURTO [facility] ECHOon 02-17-2025 Echocardiography Echocardiography Report: Transthoracic Echo [facility] Date of service: 02/17/2025 10:58:00 AM [facility] Ordering physician: JON MCDONALD Indication: Sustained atrial fibrillation Technologist: Marie Magana [facility] Interpreting physician: Naresh Yo MD PATIENT: Name: [...] * * Final * * * CC [facility] Medical Image : [id number] amicsSISUID Normal [facility] Gas and Carbon monoxide pane l (BldV)on 02-17-2025 BASE DEFICIT, VENOUS -7 mmol/L Low -2-0 [facility] Comment on above: Order Comment: Speci men Type: VENOUS BLOOD SPECIMENOrdering Facility: [facility] Address: [address] [place] [address] Performed By: #### 2 4344-4 ####[facility] LABORATORYCLIA [id number] [place] [address] [place] Body temperature 99.86 [degF] Normal [facility] Comment on above: Order Comment: Speci men Type: VENOUS BLOOD SPECIMENOrdering Facility: [facility] Address: [address] [place] [address] Performed By: #### 2 4344-4 ####[facility] LABORATORYCLIA [id number] [address] Calcium.ionized (BldV) [Mass/Vol] 1.17 mmol/L Normal 1.08-1.30 [facility] Comment on above: Order Comment: Speci men Type: VENOUS BLOOD SPECIMENOrdering Facility: [facility] Address: [address] [place] [address] Performed By: #### 2 4344-4 ####[facility] LABORATORYCLIA [id number] [address] Calcium.ionized adjusted to pH 7.4 (BldA) [Moles/Vol] 1.12 mmol/L Normal 1.08-1.30 [facility] Comment on above: Order Comment: Speci men Type: VENOUS BLOOD SPECIMENOrdering Facility: [facility] Address: [address] [place] [address] Performed By: #### 2 4344-4 ####[facility] LABORATORYCLIA [id number] [address] OF [facility] Carboxyhemoglobin (BldV) [Mass fraction] 1.1 % Normal 0.0-2.0 [facility] Comment on above: Order Comment: Speci men Type: VENOUS BLOOD SPECIMENOrdering Facility: [facility] Address: [address] [place] [address] Result Comment: Carb oxyhemoglobin Reference Range for Smokers: 2.0-8.0% Performed By: #### 2 4344-4 ####[facility] LABORATORYCLIA [id number] [address] [place] Chloride [Moles/Vol] 107 mmol/L High 97-105 [facility] Comment on above: Order Comment: Speci men Type: VENOUS BLOOD SPECIMENOrdering Facility: [facility] Address: [address] [place] [address] Performed By: #### 2 4344-4 ####[facility] LABORATORYCLIA [id number] [address] [place] CO2 (BldV) [Partial pressure] 38 mm[Hg] Low 42-55 [facility] Comment on above: Order Comment: Speci men Type: VENOUS BLOOD SPECIMENOrdering Facility: [facility] Address: [address] [place] [address] Performed By: #### 2 4344-4 ####[facility] LABORATORYCLIA [id number] [address] [place] CO2 adjusted to patient's actual temperature (BldV) [Partial pressure] 39 mmHg Low 42-55 [facility] Comment on above: Order Comment: Speci men Type: VENOUS BLOOD SPECIMENOrdering Facility: [facility] Address: [address] [place] [address] Performed By: #### 2 4344-4 ####[facility] LABORATORYCLIA [id number] [address] [place] Glucose [Mass/Vol] 236 mg/dL High 60-105 [facility] Comment on above: Order Comment: Speci men Type: VENOUS BLOOD SPECIMENOrdering Facility: [facility] Address: [address] [place] [address] Performed By: #### 2 4344-4 ####[facility] LABORATORYCLIA [id number] [address] [place] HCO3 (Bld) [Moles/Vol] 18 mmol/L Low 24-[address] [facility] Comment on above: Order Comment: Speci men Type: VENOUS BLOOD SPECIMENOrdering Facility: [facility] Address: [address] [place] [address] Performed By: #### 2 4344-4 ####[facility] LABORATORYCLIA [id number] [address] [place] Hematocrit (Bld) [Volume fraction] 37.3 % Low 39.0-51.0 [facility] Comment on above: Order Comment: Speci men Type: VENOUS BLOOD SPECIMENOrdering Facility: [facility] Address: [address] [place] [address] Performed By: #### 2 4344-4 ####[facility] LABORATORYCLIA [id number] [address] [place] Hemoglobin (Bld) [Mass/Vol] 12.1 g/dL Low 13.0-17.0 [facility] Comment on above: Order Comment: Speci men Type: VENOUS BLOOD SPECIMENOrdering Facility: [facility] Address: [address] [place] [address] Performed By: #### 2 4344-4 ####[facility] LABORATORYCLIA [id number] [address] [place] Lactate [Moles/Vol] 2.2 mmol/L Normal 0.5-2.2 [facility] Comment on above: Order Comment: Speci men Type: VENOUS BLOOD SPECIMENOrdering Facility: [facility] Address: [address] [place] [address] Performed By: #### 2 4344-4 ####[facility] LABORATORYCLIA [id number] [address] Methemoglobin (Bld) [Mass fraction] 0.8 % Normal 0.0-1.5 [facility] Comment on above: Order Comment: Speci men Type: VENOUS BLOOD SPECIMENOrdering Facility: [facility] Address: [address] [place] [address] Performed By: #### 2 4344-4 ####[facility] LABORATORYCLIA [id number] [address] [place] O2 THERAPY VENT=Ventilator Normal [facility] Comment on above: Order Comment: Speci men Type: VENOUS BLOOD SPECIMENOrdering Facility: [facility] Address: [address] [place] [address] Performed By: #### 2 4344-4 ####[facility]ORATORYCLIA [id number] [address] Oxygen (BldV) [Partial pressure] 65 mm[Hg] High 35-45 [facility] Comment on above: Order Comment: Speci men Type: VENOUS BLOOD SPECIMENOrdering Facility: [facility] Address: [address] [place] [address] Performed By: #### 2 4344-4 ####[facility]ORATORYCLIA [id number] [address] [place] Oxygen adjusted to patient's actual temperature (BldV) [Partial pressure] 68 mmHg High 35-45 [facility] Comment on above: Order Comment: Speci men Type: VENOUS BLOOD SPECIMENOrdering Facility: [facility] Address: [address] [place] [address] Performed By: #### 2 4344-4 ####[facility] LABORATORYCLIA [id number] [address] Oxygen saturation in Venous blood 90 % High 60-85 [facility] Comment on above: Order Comment: Speci men Type: VENOUS BLOOD SPECIMENOrdering Facility: [facility] Address: [address] [place] [address] Performed By: #### 2 4344-4 ####[facility]ORATORYCLIA [id number] [address] [place] Oxyhemoglobin (BldV) [Mass fraction] 89 % High 60-85 [facility] Comment on above: Order Comment: Speci men Type: VENOUS BLOOD SPECIMENOrdering Facility: [facility] Address: [address] [place] [address] Performed By: #### 2 4344-4 ####[facility] LABORATORYCLIA [id number] [address] [place] pH (BldV) 7.31 [pH] Low 7.32-7.42 [facility] Comment on above: Order Comment: Speci men Type: VENOUS BLOOD SPECIMENOrdering Facility: [facility] Address: [address] [place] [address] Performed By: #### 2 4344-4 ####[facility]ORATORYCLIA [id number] [address] [place] pH adjusted to patient's actual temperature (BldV) 7.30 Low 7.32-7.42 [facility] Comment on above: Order Comment: Speci men Type: VENOUS BLOOD SPECIMENOrdering Facility: [facility] Address: [address] [place] [address] Performed By: #### 2 4344-4 ####[facility] LABORATORYCLIA [id number] [address] OF [facility] Potassium [Moles/Vol] 4.7 mmol/L Normal 3.5-5.0 [facility] Comment on above: Order Comment: Speci men Type: VENOUS BLOOD SPECIMENOrdering Facility: [facility] Address: [address] [place] [address] Performed By: #### 2 4344-4 ####[facility]ORATORYCLIA [id number] [address] Sodium [Moles/Vol] 134 mmol/L Low 136-144 [facility] [facility] Comment on above: Order Comment: Speci men Type: VENOUS BLOOD SPECIMENOrdering Facility: [facility] Address: [address] [place] [address] Performed By: #### 2 4344-4 ####[facility] LABORATORYCLIA [id number] [address] OF [facility] NURSING PROGon 02-17-2025 NURSING PROG HNO ID: [id number] Author: ARLEN BUTLER RN Service: Nursing Author Type: Registered Nurse Type: Nursing Progress Note Filed: 02/17/2025 07:12 Note Text: Dr. Story and Dr. Gama at bedside. Pt in Afib rhythm. Order for 2 grams Magnesium IV Normal [facility] NUTRITIONon 02-17-2025 NUTRITION HNO ID: [id number] Author: DARA MCDUFFIE RD Service: Nutrition Therapy [...] h/o paraplegia and wounds admitted from a [facility] after being found unresponsive with concerns for sepsis. Intubated in ICU. Intake History: Nutrition Intake Prior to Admission: Greater than 75% estimated energy needs Dosing Weight: 74 kg (163 lb 2.3 oz) Dosing Weight Type: [place] body weight (adjusted for paraplegia) Estimated kilocalorie [...] Airways Drain Duration Indwelling Urinary Catheter 02/16/252125 [facility] Coude 20 Fr <1 day MNT Billing: $ Initial Assessment: 1 unit Time Spent (mins): 8 SIGNATURE: Dara Mcduffie RD PATIENT NAME: Anmol Given DATE: February 17, 2025 TIME: 8:02 AM Normal [facility] PT panel Coag (PPP)on 2024 INR Coag (PPP) [Relative time] 1.2 {INR} Normal 0.9-1.3 [facility] Comment on above: Order Comment: Speci men Type: BLOOD SPECIMENOrdering Facility: [facility] Address: [address] [place] [address] Result Comment: Lorna min K Antagonist (VKA) Therapeutic Range: INR 2 to 3 (Target INR of 2.5) Note: For patients treated with VKA drugs, such as warfarin, the [place] [employer] 2012 Guideline recommends [...] 2.5 to 3.5 (target INR of 3). Sravan GH, et al. Chest 2012, 141:7S-47S Marcela RA, et al. [facility] 2017, 70: 252-289 Performed By: #### 1 4979-9, 75550-0 ####[facility]IA [id number] [place] [address] [place] PT Coag (PPP) [Time] 12.4 s Normal 9.7-13.0 [facility] Comment on above: Order Comment: Jg valdez Type: BLOOD SPECIMENOrdering Facility: [facility] Address: [address] [place] [address] Performed By: #### 1 4979-9, 14738-9 ####[facility]ITALCLIA [id number] [place] [address] [place] Phosphate SerPl-mCncon 02-17 Phosphate [Mass/Vol] 4.4 mg/dL Normal 2.7-4.8 [facility] Comment on above: Order Comment: Jg valdez Type: BLOOD SPECIMENOrdering Facility: [facility] Address: [address] [place] [address] Performed By: #### 2 777-1, 65045-1 ####[facility] LABORATORYCLIA [id number] [address] OF [facility] STAPHYLOCOCCUS AUREUS AND MR SA SCREEN, PCR, NASALon 02-17-2025 S. aureus and MRSA panel JOSSY+probe (Nose) Methicillin-SUSCEPTIB LE Staphylococcus aureus Detected Abnormal Not Detected [facility] Comment on above: Order Comment: Speci courtney Type: SWABOrdering Facility: [facility] Address: [address] [place] [address] Performed By: #### S APCR ####[facility] LABORATORYCLIA [id number] [place] [id number] [facility] OF [place] THERAPY NTon 02-17-2025 THERAPY NT HNO ID: [id number] Author: SANDHYA ABURTO RRT Service: Respiratory Therapy Author Type: Registered Resp [...] PROGRESS NOTE SERVICE DATE: 02/17/2025 SERVICE TIME: 0805 sbt SIGNATURE: Sandhya Aburto RRT PATIENT NAME: Anmol Given DATE: February 17, 2025 TIME: 8:03 AM PAGER/CONTACT #: vocera Normal [facility] Vancomycin random [Mass/Vol] on 02-17-2025 Vancomycin [Mass/Vol] 6.1 ug/mL Low 10.0-20.0 [facility] Comment on above: Order Comment: Jg valdez Type: BLOOD SPECIMENOrdering Facility: [facility] Address: [address] [place] [address] Result Comment: Refe rence ranges and high/low indicator flags are provided as general guidelines only. The treating physician must determine appropriate target levels/dosing based on the specific clinical situation. Performed By: #### 4 091-5 ####[facility] LABORATORYCLIA [id number] [address] OF [facility] XR ABDOMEN 1V SUPINEon 02-17 XR ABDOMEN [...] The side port overlies the GE junction. Pearl Fisherman: CECILIA Transcribe Date/Time: Feb 17 2025 11:05A Dictated by : VIPIN JASSO MD This examination was interpreted and the report reviewed and electronically signed by: VIPIN JASSO MD on Feb 17 2025 11:06AM EST [id number] N Normal [facility] aPTT PPPon 02-17-2025 aPTT Coag (PPP) [Time] 38.7 s High 23.0-32.[address] [facility] Comment on above: Order Comment: Speci men Type: BLOOD SPECIMENOrdering Facility: [facility] Address: [address] [place] [address] Performed By: #### 1 4979-9 ####[facility] LABORATORYCLIA [id number] [address] aPTT Coag (PPP) [Time] EXTREMELY ABNORMA L RESULT. No clot detected at 320 seconds. Refer to anticoagulation nomogram for further actions. Critically abnormal (none) [facility] Comment on above: Order Comment: Speci men Type: BLOOD SPECIMENOrdering Facility: [facility] Address: [address] [place] [id number] Performed By: #### 1 4979-9 ####[facility] LABORATORYCLIA [id number] [place] [address] [facility] aPTT Coag (PPP) [Time] 36.7 s High 23.0-32.[address] [facility] Comment on above: Order Comment: Speci men Type: BLOOD SPECIMENOrdering Facility: [facility] Address: [address] [place] [address] [place] [address] Performed By: #### 1 4979-9, 77879-9 ####[facility] LABORATORYCLIA [id number] [place] [address] [facility] ALLIED HEALTHon 02-16-2025 ALLIED HEALTH HNO ID: [id number] Author: DILCIA BASILIO RT(R) Service: ? Author [...] PATIENT PRESENTS WITH AN IMPLANTABLE OR ATTACHED PLEATING SUPERVISOR: No ALLERGIES: Reviewed and unchanged CONTRAST ALLERGY: [...] PERIPHERAL IV DATA: Inpatient - refer to [facility] documentation RADIOLOGY DEPARTMENT: CT; Exam(s) Completed: Brain , Chest Abdomen Pelvis, CTA Brain , and CTA Neck SIGNATURE: Dilcia Basilio, RT(R) PATIENT NAME: Anmol Reynolds DATE: February 16, 2025 TIME: 8:26 PM Normal [facility] Bacteria Bld Culton 02-17-20 Bacteria identified Cx Nom (Bld) ORGANISM ID: [...] , Intermediate >=.5 , Resistant >=1 Abnormal [facility] Comment on above: Performed By: #### 6 00-7 ####[facility] LABORATORYCLIA [id number] [place] [address] [place] Bacteria identified Cx [...] , Intermediate >=.5 , Resistant >=1 Abnormal [facility] Comment on above: Performed By: #### 6 00-7 #### [facility] CLIA [id number] [address] [place] [id number] [place] Bacteria Ur Culton [...] , Intermediate >32 , Resistant >64 Abnormal [facility] Comment on above: Performed By: #### 2 4356-8, 630-4 ####[facility] LABORATORYCLIA [id number] [address] STATES OF [facility] CBC W Auto Differential pane l (Bld)on 02-16-2025 Basophils (Bld) [#/Vol] 0.00 10*3/uL Normal <0.11 [facility] Comment on above: Order Comment: Speci men Type: BLOOD SPECIMENOrdering Facility: [facility] Address: [address] [place] [address] Performed By: #### 5 7021-8 ####[facility] LABORATORYCLIA [id number] [address] STATES OF [facility] Basophils/100 WBC (Bld) 0.0 % Normal [facility] Comment on above: Order Comment: Speci men Type: BLOOD SPECIMENOrdering Facility: [facility] Address: [address] [place] [address] Performed By: #### 5 7021-8 ####[facility] LABORATORYCLIA [id number] [address] Differential cell count method Nom (Bld) Manual Normal [facility] Comment on above: Order Comment: Speci men Type: BLOOD SPECIMENOrdering Facility: [facility] Address: [address] [place] [address] Performed By: #### 5 7021-8 ####[facility] LABORATORYCLIA [id number] [address] [place] Eosinophils (Bld) [#/Vol] 0.00 10*3/uL Normal <0.46 [facility] Comment on above: Order Comment: Speci men Type: BLOOD SPECIMENOrdering Facility: [facility] Address: [address] [place] [address] Performed By: #### 5 7021-8 ####[facility] LABORATORYCLIA [id number] [address] STATES OF [facility] Eosinophils/100 WBC (Bld) 0.0 % Normal [facility] Comment on above: Order Comment: Speci men Type: BLOOD SPECIMENOrdering Facility: [facility] Address: [address] [place] [address] Performed By: #### 5 7021-8 ####[facility] LABORATORYCLIA [id number] [address] STATES [place] Erythrocyte distribution width (RBC) [Ratio] 14.5 % Normal 11.5-15.0 [facility] Comment on above: Order Comment: Speci men Type: BLOOD SPECIMENOrdering Facility: [facility] Address: [address] [place] [address] Performed By: #### 5 7021-8 ####[facility] LABORATORYCLIA [id number] [address] OF [place] Hematocrit (Bld) [Volume fraction] 34.9 % Low 39.0-51.0 [facility] Comment on above: Order Comment: Speci men Type: BLOOD SPECIMENOrdering Facility: [facility] Address: [address] [place] [address] Performed By: #### 5 7021-8 ####[facility] LABORATORYCLIA [id number] [address] [place] Hemoglobin (Bld) [Mass/Vol] 11.6 g/dL Low 13.0-17.0 [facility] Comment on above: Order Comment: Speci men Type: BLOOD SPECIMENOrdering Facility: [facility] Address: [address] [place] [address] Performed By: #### 5 7021-8 ####[facility] LABORATORYCLIA [id number] [address] [place] Lymphocytes (Bld) [#/Vol] 0.31 10*3/uL Low 1.00-4.00 [facility] Comment on above: Order Comment: Speci men Type: BLOOD SPECIMENOrdering Facility: [facility] Address: [address] [place] [address] Performed By: #### 5 7021-8 ####[facility] LABORATORYCLIA [id number] [address] Lymphocytes/100 WBC (Bld) 3.0 % Normal [facility] Comment on above: Order Comment: Speci men Type: BLOOD SPECIMENOrdering Facility: [facility] Address: [address] [place] [address] Performed By: #### 5 7021-8 ####[facility] LABORATORYCLIA [id number] [address] MCH (RBC) [Entitic mass] 30.1 pg Normal 26.0-34.0 [facility] Comment on above: Order Comment: Speci men Type: BLOOD SPECIMENOrdering Facility: [facility] Address: [address] [place] [address] Performed By: #### 5 7021-8 ####[facility] LABORATORYCLIA [id number] [address] MCHC (RBC) [Mass/Vol] 33.2 g/dL Normal 30.5-36.0 [facility] Comment on above: Order Comment: Speci men Type: BLOOD SPECIMENOrdering Facility: [facility] Address: [address] [place] [address] Performed By: #### 5 7021-8 ####[facility] LABORATORYCLIA [id number] [address] MCV (RBC) [Entitic vol] 90.6 fL Normal 80.0-100.0 [facility] Comment on above: Order Comment: Speci men Type: BLOOD SPECIMENOrdering Facility: [facility] Address: [address] [place] [address] Performed By: #### 5 7021-8 ####[facility] LABORATORYCLIA [id number] [address] OF [place] Metamyelocytes/100 WBC (Bld) 3.0 % Normal [facility] Comment on above: Order Comment: Speci men Type: BLOOD SPECIMENOrdering Facility: [facility] Address: [address] [place] [address] Performed By: #### 5 7021-8 ####[facility]ORATORYCLIA [id number] [address] [place] Monocytes (Bld) [#/Vol] 0.41 10*3/uL Normal <0.87 [facility] Comment on above: Order Comment: Speci men Type: BLOOD SPECIMENOrdering Facility: [facility] Address: [address] [place] [address] Performed By: #### 5 7021-8 ####[facility] LABORATORYCLIA [id number] [address] OF [place] Monocytes/100 WBC (Bld) 4.0 % Normal [facility] Comment on above: Order Comment: Speci men Type: BLOOD SPECIMENOrdering Facility: [facility] Address: [address] [place] [address] Performed By: #### 5 7021-8 ####[facility]ORATORYCLIA [id number] [address] OF [place] Neutrophils (Bld) [#/Vol] 9.26 10*3/uL High 1.45-7.50 [facility] Comment on above: Order Comment: Speci men Type: BLOOD SPECIMENOrdering Facility: [facility] Address: [address] [place] [address] Performed By: #### 5 7021-8 ####[facility]ORATORYCLIA [id number] [address] OF [place] Neutrophils/100 WBC (Bld) 90.0 % Normal [facility] Comment on above: Order Comment: Speci men Type: BLOOD SPECIMENOrdering Facility: [facility] Address: [address] [place] [address] Performed By: #### 5 7021-8 ####[facility]ORATORYCLIA [id number] [address] OF [place] Nucleated RBC (Bld) [#/Vol] 10*3/uL Normal <0.01 [facility] Comment on above: Order Comment: Speci men Type: BLOOD SPECIMENOrdering Facility: [facility] Address: [address] [place] [address] Performed By: #### 5 7021-8 ####[facility] LABORATORYCLIA [id number] [address] Nucleated RBC/100 WBC (Bld) [Ratio] 0.0 /100 WBC Normal [facility] Comment on above: Order Comment: Speci men Type: BLOOD SPECIMENOrdering Facility: [facility] Address: [address] [place] [address] Performed By: #### 5 7021-8 ####[facility] LABORATORYCLIA [id number] [address] Platelet mean volume (Bld) [Entitic vol] 10.6 fL Normal 9.0-12.7 [facility] Comment on above: Order Comment: Speci men Type: BLOOD SPECIMENOrdering Facility: [facility] Address: [address] [place] [address] Performed By: #### 5 7021-8 ####[facility]ORATORYCLIA [id number] [address] OF [place] Platelets (Bld) [#/Vol] 108 10*3/uL Low 150-400 [facility] Comment on above: Order Comment: Speci men Type: BLOOD SPECIMENOrdering Facility: [facility] Address: [address] [place] [address] Result Comment: No c lot detected. Performed By: #### 5 7021-8 ####[facility]ORATORYCLIA [id number] [address] Platelets Estimate (Bld) [#/Vol] Decreased Normal [facility] Comment on above: Order Comment: Speci men Type: BLOOD SPECIMENOrdering Facility: [facility] Address: [address] [place] [address] Performed By: #### 5 7021-8 ####[facility]ORATORYCLIA [id number] [address] [place] RBC (Bld) [#/Vol] 3.85 10*6/uL Low 4.20-6.00 [facility] Comment on above: Order Comment: Speci men Type: BLOOD SPECIMENOrdering Facility: [facility] Address: [address] [place] [address] Performed By: #### 5 7021-8 ####[facility] LABORATORYCLIA [id number] [address] RED CELL MORPH Reviewed: unremarkable Normal [facility] Comment on above: Order Comment: Speci men Type: BLOOD SPECIMENOrdering Facility: [facility] Address: [address] [place] [address] Performed By: #### 5 7021-8 ####[facility] LABORATORYCLIA [id number] [place] [address] [place] WBC (Bld) [#/Vol] 10.29 10*3/uL Normal 3.70-11.00 [facility] Comment on above: Order Comment: Speci men Type: BLOOD SPECIMENOrdering Facility: [facility] Address: [address] [place] [address] Performed By: #### 5 7021-8 ####[facility] LABORATORYCLIA [id number] [address] OF [facility] CT ABD/PEL W IVCONon 05-15-[address] ABD/PEL W IVCON * * *Final Report* * * DATE OF EXAM: Feb 16 2025 8:33PM [facility] 0530 - CT ABD/PEL W IVCON / [...] 8. Details above. 9. Follow-up as indicated. Pearl Fisherman: CECILIA Transcribe Date/Time: Feb 16 2025 10:02P Dictated by : CORBIN PERRY MD This examination was interpreted and the report reviewed and electronically signed by: CORBIN PERRY MD on Feb 16 2025 10:34PM EST 16 (more content not included)... Normal [facility] CT BRAIN WO IVCONon 02-17-[address] BRAIN WO IVCON * * *Final Report* * * DATE OF EXAM: Feb 16 2025 8:33PM [facility] 0504 - CT BRAIN WO IVCON / [...] involving the major extra or intracranial arteries. Pearl Fisherman: CECILIA Transcribe Date/Time: Feb 16 2025 9:23P Dictated by : BYRON SRINIVASAN MD This examination was interpreted and the report reviewed and electronically signed by: BYRON SRINIVASAN MD on Feb 16 2025 9:34PM EST [id number] Normal [facility] CT CHEST W IVCONon 5 CT CHEST W IVCON * * *Final Report* * * DATE OF EXAM: Feb 16 2025 8:33PM [facility] 0539 - CT CHEST W IVCON / [...] the gastroesophageal junction and should be advanced. Pearl Fisherman: CECILIA Transcribe Date/Time: Feb 16 2025 9:56P Dictated by : ELLIOT ANGELA DO This examination was interpreted and the report reviewed and electronically signed by: ELLIOT ANGELA DO on Feb 16 2025 10:13PM EST [id number] Normal [facility] CTA HEAD W IVCONon CTA HEAD W IVCON * * *Final Report* * * DATE OF EXAM: Feb 16 2025 8:33PM [facility] 0022 - CTA HEAD W IVCON / [...] involving the major extra or intracranial arteries. Pearl Fisherman: PSCB Transcribe Date/Time: Feb 16 2025 9:23P Dictated by : BYRON SRINIVASAN MD This examination was interpreted and the report reviewed and electronically signed by: BYRON SRINIVASAN MD on Feb 16 2025 9:34PM EST [id number] Normal [facility] CTA NECK W IVCONon CTA NECK W IVCON * * *Final Report* * * DATE OF EXAM: Feb 16 2025 8:33PM [facility] 0024 - CTA NECK W IVCON / [...] involving the major extra or intracranial arteries. Pearl Fisherman: [facility] Transcribe Date/Time: Feb 16 2025 9:23P Dictated by : BYRON SRINIVASAN MD This examination was interpreted and the report reviewed and electronically signed by: BYRON SRINIVASAN MD on Feb 16 2025 9:34PM EST [id number] Normal [facility] Comprehensive metabolic 2000 panelon 02-16-2025 Albumin [Mass/Vol] 2.3 g/dL Low 3.9-4.9 [facility] Comment on above: Order Comment: Jg valdez Type: BLOOD SPECIMENOrdering Facility: [facility] Address: [address] [place] [address] Performed By: #### 2 4323-8, ####[facility]ORATORYCLIA [id number] [place] [address] [place] ALP [Catalytic activity/Vol] 286 U/L High 38-113 [facility] Comment on above: Order Comment: Jg valdez Type: BLOOD SPECIMENOrdering Facility: [facility] Address: [address] [place] [address] Performed By: #### 2 4323-8, ####[facility]ATORYCLIA [id number] [place] [address] [place] ALT With P-5'-P [Catalytic activity/Vol] 17 U/L Normal 10-54 [facility] Comment on above: Order Comment: Speci men Type: BLOOD SPECIMENOrdering Facility: [facility] Address: [address] [place] [address] Performed By: #### 2 43238, ####[facility]ATORYCLIA [id number] [place] [id number] [place] Anion gap [Moles/Vol] 14 mmol/L Normal 8-15 [facility] Comment on above: Order Comment: Speci men Type: BLOOD SPECIMENOrdering Facility: [facility] Address: [address] [place] [address] Performed By: #### 2 4328, ####[facility] LABORATORYCLIA [id number] [address] STATES OF [facility] AST With P-5'-P [Catalytic activity/Vol] 31 U/L Normal 14-40 [facility] Comment on above: Order Comment: Speci men Type: BLOOD SPECIMENOrdering Facility: [facility] Address: [address] [place] [address] Performed By: #### 2 43238, ####[facility]ORATORYCLIA [id number] [place] [address] [place] Bilirubin [Mass/Vol] 0.9 mg/dL Normal 0.2-1.3 [facility] Comment on above: Order Comment: Speci men Type: BLOOD SPECIMENOrdering Facility: [facility] Address: [address] [place] [address] Performed By: #### 2 4323-8, ####[facility]ATORYCLIA [id number] [place] [id number] [place] Calcium [Mass/Vol] 7.7 mg/dL Low 8.5-10.2 [facility] Comment on above: Order Comment: Speci men Type: BLOOD SPECIMENOrdering Facility: [facility] Address: [address] [place] [address] Performed By: #### 2 4323-8, ####[facility]ORATORYCLIA [id number] [place] [address] [place] Chloride [Moles/Vol] 105 mmol/L Normal 98-107 [facility] Comment on above: Order Comment: Speci men Type: BLOOD SPECIMENOrdering Facility: [facility] Address: [address] [place] [address] Performed By: #### 2 43212-10, ####[facility]ORATORYCLIA [id number] [place] [id number] [place] CO2 [Moles/Vol] 17 mmol/L Low 22-30 [facility] Comment on above: Order Comment: Speci men Type: BLOOD SPECIMENOrdering Facility: [facility] Address: [address] [place] [address] Performed By: #### 2 432-8, ####[facility]ORATORYCLIA [id number] [place] [address] [place] Creatinine [Mass/Vol] 2.35 mg/dL High 0.73-1.22 [facility] Comment on above: Order Comment: Speci men Type: BLOOD SPECIMENOrdering Facility: [facility] Address: [address] [place] [address] Performed By: #### 2 432-8, ####[facility]ORATORYCLIA [id number] [address] [place] Creatinine and Glomerular filtration rate.predicted panel (S/P/Bld) 30 mL/min/1.73m??? Low >=60 [facility] Comment on above: Order Comment: Speci men Type: BLOOD SPECIMENOrdering Facility: [facility] Address: [address] [place] [address] Result Comment: Leena mated Glomerular Filtration Rate [...] actual GFR. Performed By: #### 2 4323-8, ####[facility]ORATORYCLIA [id number] [place] [address] [place] Glucose [Mass/Vol] 131 mg/dL High 74-99 [facility] Comment on above: Order Comment: Jg valdez Type: BLOOD SPECIMENOrdering Facility: [facility] Address: [address] [place] [address] Result Comment: The [place] [employer] (ADA) provides guidance for cutoff [...] Standards of Medical Care in Diabetes 2016, [place] [employer]. Diabetes Care. 2016.39(Suppl 1). Performed By: #### 2 4323-8, ####[facility]ORATORYCLIA [id number] [place] [address] [place] Potassium [Moles/Vol] 4.4 mmol/L Normal 3.7-5.1 [facility] Comment on above: Order Comment: Jg valdez Type: BLOOD SPECIMENOrdering Facility: [facility] Address: [address] [place] [address] Performed By: #### 2 432-8, ####[facility] LABORATORYCLIA [id number] [place] [address] [place] Protein [Mass/Vol] 5.9 g/dL Low 6.3-8.0 [facility] Comment on above: Order Comment: Speci men Type: BLOOD SPECIMENOrdering Facility: [facility] Address: [address] [place] [address] Performed By: #### 2 4323-8, ####[facility] LABORATORYCLIA [id number] [place] [address] [place] Sodium [Moles/Vol] 136 mmol/L Normal 136-144 [facility] Comment on above: Order Comment: Speci men Type: BLOOD SPECIMENOrdering Facility: [facility] Address: [address] [place] [address] Performed By: #### 2 4323-8, ####[facility] LABORATORYCLIA [id number] [place] [id number] [place] Urea nitrogen [Mass/Vol] 33 mg/dL High 9-24 [facility] Comment on above: Order Comment: Speci men Type: BLOOD SPECIMENOrdering Facility: [facility] Address: [address] [place] [address] Performed By: #### 2 4323-8, 06773-9 ####[facility] LABORATORYCLIA [id number] [place] [id number] [place] ECG COMPLETEon 02-16-2025 ECG COMPLETE Ventricular Rate : 120 BPM Atrial Rate : 120 BPM P-R Interval : 152 ms QRS Duration : 88 ms Q-T Interval : 306 ms QTC Calculation(Bazett) : 432 ms Calculated P [place] : 35 degrees Calculated R [place] : 6 degrees Calculated T [place] : 45 degrees SINUS TACHYCARDIA POSSIBLE INFERIOR INFARCT , AGE UNDETERMINED CANNOT RULE OUT ANTERIOR INFARCT , AGE UNDETERMINED ABNORMAL ECG NO PREVIOUS ECGS AVAILABLE Confirmed by MAYKEL MANJARREZ MD ([id number]) on 02/20/2025 2:34:23 PM NAME : ANMOL REYNOLDS PID : [id number] : 1960 Gender : Male Race : ORD : [id number] Procedure Date : Feb 16 2025 19:16:55 Edit Date : Feb 20 2025 14:34:24 Diagnosis: SINUS TACHYCARDIA POSSIBLE INFERIOR INFARCT , AGE UNDETERMINED CANNOT RULE OUT ANTERIOR INFARCT , AGE UNDETERMINED ABNORMAL ECG NO PREVIOUS ECGS AVAILABLE Confirmed by MAYKEL MANJARREZ MD ([id number]) on 02/20/2025 2:34:23 PM Test Reason : Chest Pain Location : 4 : AKED EM Overread By : MAYKEL MANJARREZ MD Edited By : MAYKEL MANJARREZ MD Referred By : , Acquired by : LELAND AUGUST [facility] ED NOTEon 02-16-2025 ED NOTE HNO ID: [id number] Author: ROZ MIKE RN Service: ? Author Type: Registered Nurse Type: ED Notes Filed: 02/16/2025 23:23 Note Text: Icu resident at bedside talked with this RN about NG tube, this RN told to leave it in place for this time until further notice as it is not needed for anything significant at this time. [facility] ED NOTE HNO ID: [id number] Author: ROZ MIKE RN Service: ? Author Type: Registered Nurse Type: ED Notes Filed: 02/16/2025 21:56 Note Text: NG in right nare advanced as much as possible, per KUB, the NG is still not in stomach. MICU resident to assess when at bedside. [facility] ED NOTE HNO ID: [id number] Author: ROZ MIKE RN Service: ? Author Type: Registered Nurse Type: ED Notes Filed: 02/16/2025 22:06 Note Text: Mepilex applied to coccyx to prevent further skin berakdown. [facility] ED NOTE HNO ID: [id number] Author: ROZ MIKE RN Service: ? Author Type: Registered Nurse Type: ED Notes Filed: 02/16/2025 19:46 Note Text: Xray called at this time to confirm placement. [facility] ED NOTE HNO ID: [id number] Author: ROZ MIKE RN Service: ? Author Type: Registered Nurse Type: ED Notes Filed: 02/16/2025 19:44 Note Text: 100 mcg of fentanyl being administered at this time by LIBRADO Escamilla [facility] ED NOTE HNO ID: [id number] Author: ROZ MIKE RN Service: ? Author Type: Registered Nurse Type: ED Notes Filed: 02/16/2025 19:44 Note Text: Oxygen improved to 97%. [facility] ED NOTE HNO ID: [id number] Author: ROZ MIKE RN Service: ? Author Type: Registered Nurse Type: ED Notes Filed: 02/16/2025 19:44 Note Text: 7.5 tube placed at this time, bilateral breath sounds auscultated, ETCO2 31. 24 at the teeth. Pt oxygen 71% and HR 132. [facility] ED NOTE HNO ID: [id number] Author: ROZ MIKE RN Service: ? Author Type: Registered Nurse Type: ED Notes Filed: 02/16/2025 19:40 Note Text: 100 of rocuronium given at this time. [facility] ED NOTE HNO ID: [id number] Author: ROZ MIKE RN Service: ? Author Type: Registered Nurse Type: ED Notes Filed: 02/16/2025 19:39 Note Text: 30 of etomidate given at this time. [facility] ED NOTE HNO ID: [id number] Author: ROZ MIKE RN Service: ? Author Type: Registered Nurse Type: ED Notes Filed: 02/16/2025 19:38 Note Text: Levo tubing was clamped, levo decreased to 7 again at this time. [facility] ED NOTE HNO ID: [id number] Author: ROZ MIKE RN Service: ? Author Type: Registered Nurse Type: ED Notes Filed: 02/16/2025 19:36 Note Text: Preparing to intubate patient, using 30 of etomidate for intubation. [facility] ED NOTE HNO ID: [id number] Author: ROZ MIKE RN Service: ? Author Type: Registered Nurse Type: ED Notes Filed: 02/16/2025 19:36 Note Text: Levo increased to 10 at this time [facility] ED NOTE HNO ID: [id number] Author: ROZ MIKE RN Service: ? Author Type: Registered Nurse Type: ED Notes Filed: 02/16/2025 19:32 Note Text: Levophed started at 7 at this time. [facility] ED NOTE HNO ID: [id number] Author: ROZ MIKE RN Service: ? Author Type: Registered Nurse Type: ED Notes Filed: 02/16/2025 19:32 Note Text: Patient opening eyes at this time, but not following commands at this time. [facility] ED NOTE HNO ID: [id number] Author: RZO MIKE RN Service: ? Author Type: Registered Nurse Type: ED Notes Filed: 02/16/2025 19:22 Note Text: Line placed in RAC was placed in artery, line removed. Pressure applied, no medications were administered through this access point. [facility] ED NOTE HNO ID: [id number] Author: ROZ MIKE RN Service: ? Author Type: Registered Nurse Type: ED Notes Filed: 02/16/2025 19:16 Note Text: Patient BIBA from the [facility] [place] unresponsive. NO responsive to verbal stimuli, only to painful. Pt LKW was 1700, found unresponsive. [facility] ED NOTE HNO ID: [id number] Author: ROZ MIKE RN Service: ? Author Type: Registered Nurse Type: ED Notes Filed: 02/16/2025 19:15 Note Text: [facility] ED NOTE HNO ID: [id number] Author: ROZ MIKE RN Service: ? Author Type: Registered Nurse Type: ED Notes Filed: 02/16/2025 19:25 Note Text: 2L up at this time. 1 L LR and 1L NS. [facility] ED NOTE HNO ID: [id number] Author: ROZ MIKE RN Service: ? Author Type: Registered Nurse Type: ED Notes Filed: 02/16/2025 19:36 Note Text: Patient placed on zoll pads at this time [facility] ED PROV NOTEon 02-16-2025 ED PROV NOTE HNO ID: [id number] Author: KATHRIN MEHTA MD Service: Emergency Medicine [...] 16, 20251952 Patient here via EMS from half-way for evaluation of hypotension and altered mental [...] History Patient presents with: Unresponsive: Pt from [facility] for being found unresponsive. Pt normally AANDOx4, but had a spinal cord injury resulting in need for nursing facility. Pt LKW was 1700 today. Arrives only arousable to pain, unable to follow commands. Arrives pale, on NRB, hypotensive, and tachycardic. Patient is a 64-year-old male who presents from [facility] for being unresponsive. Patient is a history [...] PAST SURGICAL (more content not included)... Normal [facility] HISTORY PHYSICALon HISTORY PHYSICAL HNO ID: [id number] Author: HOWARD GAMA MD Service: Critical Care Author Type: Physician Type: H&P Filed: 02/17/2025 02:44 Note Text: [facility] STAFF PHYSICIAN NOTE OF PERSONAL INVOLVEMENT IN [...] with extensive medical hx who presented from half-way for AMS. In the ED, was obtunded [...] [facility] DATE of SERVICE: 02/16/2025 [facility] HISTORY PHYSICAL HNO ID: [id number] Author: HOWARD GAMA MD Service: Critical Care Author Type: Physician Type: H&P Filed: 02/17/2025 18:50 Note Text: MEDICAL INTENSIVE CARE UNIT HANDP PATIENT NAME: Anmol Reynolds REASON FOR ADMISSION:Septic shock Admission Date: 02/16/2025 Subjective HPI Anmol Given is a 64 [...] intubation. The patient initially presented to the [facility] ED on February 16, 2025 after being found unresponsive at his longterm facility, last known well 1700 today. ED [...] Lactate (POCT) 2.4 ! UA: 02/16/2025 Color [place] ! Clarity Dense Turbid ! Glucose, Urine Negative Bilirubin, Urine Negative Ketones, Urine Negative Specific Xenia, Ur 1.037 (H) Hemoglobin/Blood,Ur 3+ ! pH, [...] Neuropathy N (more content not included)... Normal [facility] Magnesium [Mass/Vol] 1.6 mg/dL Low 1.7-2.3 [facility] Comment on above: Order Comment: Speci men Type: BLOOD SPECIMENOrdering Facility: [facility] Address: [address] [place] [address] Performed By: #### 2 9723-8, 94950-3 ####[facility] LABORATORYCLIA [id number] [address] Urinalysis complete panel (U )on 02-16-2025 Bacteria LM.HPF (Urine sed) [#/Area] Many Abnormal None Seen [facility] Comment on above: Order Comment: Speci men Type: URINE SPECIMENOrdering Facility: [facility] Address: [address] [place] [address] Performed By: #### 2 4356-8, 630-4 ####[facility]ORATORYCLIA [id number] [address] Bilirubin Ql (U) Negative Normal Negative [facility] Comment on above: Order Comment: Speci men Type: URINE SPECIMENOrdering Facility: [facility] Address: [address] [place] [address] Performed By: #### 2 4356-8, 630-4 ####[facility]ITALCL[facility] [id number] [address] Clarity (Unsp spec) Dense Turbid Abnormal Clear [facility] Comment on above: Order Comment: Speci men Type: URINE SPECIMENOrdering Facility: [facility] Address: [address] [place] [address] Performed By: #### 2 4356-8, 630-4 ####[facility]ORATORYCLIA [id number] [address] Color (U) [place] Abnormal yellow [facility] Comment on above: Order Comment: Speci men Type: URINE SPECIMENOrdering Facility: [facility] Address: [address] [place] [address] Performed By: #### 2 4356-8, 630-4 ####[facility]ORATORYCLIA [id number] [address] Epithelial cells LM.HPF (Urine sed) [#/Area] Moderate Abnormal None Seen [facility] Comment on above: Order Comment: Speci men Type: URINE SPECIMENOrdering Facility: [facility] Address: [address] [place] [address] Performed By: #### 2 4356-8, 630-4 ####[facility] LABORATORYCLIA [id number] [place], [place] [id number] [place] [address] [place] Glucose Test strip (U) [Mass/Vol] Negative Normal Trace, Negative [facility] Comment on above: Order Comment: Speci men Type: URINE SPECIMENOrdering Facility: [facility] Address: [address] [place] [address] Performed By: #### 2 4356-8, 630-4 ####[facility]ORATORYCLIA [id number] [place] [address] [place] Hemoglobin Ql (U) 3+ Abnormal Negative, Trace [facility] Comment on above: Order Comment: Speci men Type: URINE SPECIMENOrdering Facility: [facility] Address: [address] [place] [address] Performed By: #### 2 4356-8, 630-4 ####[facility]ORATORYCLIA [id number] [place] [address] [place] Ketones Ql (U) Negative Normal Negative, Trace [facility] Comment on above: Order Comment: Speci men Type: URINE SPECIMENOrdering Facility: [facility] Address: [address] [place] [address] Performed By: #### 2 4356-8, 630-4 ####[facility] LABORATORYCLIA [id number] [address] OF [facility] Leukocyte esterase Test strip Ql (U) 500 Da/uL Abnormal Negative, 25 Da/uL [facility] Comment on above: Order Comment: Speci men Type: URINE SPECIMENOrdering Facility: [facility] Address: [address] [place] [address] Performed By: #### 2 4356-8, 630-4 ####[facility] LABORATORYCLIA [id number] [place] [address] [place] Nitrite Ql (U) Negative Normal Negative [facility] Comment on above: Order Comment: Speci men Type: URINE SPECIMENOrdering Facility: [facility] Address: [address] [place] [address] Performed By: #### 2 4356-8, 630-4 ####[facility]ORATORYCLIA [id number] [address] STATES [facility] pH (U) 6.5 [pH] Normal 5.0-8.0 [facility] Comment on above: Order Comment: Speci men Type: URINE SPECIMENOrdering Facility: [facility] Address: [address] [place] [address] Performed By: #### 2 4356-8, 630-4 ####[facility]ORATORYCLIA [id number] [address] Protein (U) [Mass/Vol] 2+ Abnormal Trace , Negative [facility] Comment on above: Order Comment: Speci men Type: URINE SPECIMENOrdering Facility: [facility] Address: [address] [place] [address] Performed By: #### 2 4356-8, -4 ####[facility]ORATORYCLIA [id number] [address] RBC LM.HPF (Urine sed) [#/Area] /[HPF] Abnormal 0-3 /HPF [facility] Comment on above: Order Comment: Speci men Type: URINE SPECIMENOrdering Facility: [facility] Address: [address] [place] [address] Performed By: #### 2 4356-8, -4 ####[facility]ORATORYCLIA [id number] [address] OF [place] Specific gravity (U) [Rel density] 1.037 High 1.005-1.030 [facility] Comment on above: Order Comment: Speci men Type: URINE SPECIMENOrdering Facility: [facility] Address: [address] [place] [address] Performed By: #### 2 4356-8, 630-4 ####[facility]ORATORYCLIA [id number] [address] Urobilinogen Ql (U) Normal Normal Normal [facility] Comment on above: Order Comment: Speci men Type: URINE SPECIMENOrdering Facility: [facility] Address: [address] [place], [place] [address] Performed By: #### 2 4356-8, 630-4 ####[facility]ORATORYCLIA [id number] [place] [address] [place] WBC LM.HPF (Urine sed) [#/Area] /[HPF] Abnormal 0-5 /HPF [facility] Comment on above: Order Comment: Speci men Type: URINE SPECIMENOrdering Facility: [facility] Address: [address] [place], [place] [address] Performed By: #### 2 4356-8, 630-4 ####[facility]ORATORYCLIA [id number] [place] [address] [place] OF [facility] XR ABDOMEN 1V SUPINEon 02-16 XR ABDOMEN [...] EKG leads. No dilated gas-filled bowel loops. [place]man: [facility] Transcribe Date/Time: Feb 16 2025 10:58P Dictated by : LAURYN ELLINGTON MD This examination was interpreted and the report reviewed and electronically signed by: LAURYN ELLINGTON MD on Feb 16 2025 10:59PM EST [id number] N Normal [facility] XR ABDOMEN 1V SUPINE [...] abundance of colonic stool. Other details above. [place]: [facility]atie Transcribe Date/Time: Feb 16 2025 9:11P Dictated by : KELSY CARDOZA MD This examination was interpreted and the report reviewed and electronically signed by: KELSY CARDOZA MD on Feb 16 2025 9:14PM EST [id number] N Normal [facility] XR CHEST 1V FRONTALon [...] in the distal esophagus, suggest further advancement. [place] Fisherman: [facility] Transcribe Date/Time: Feb 16 2025 8:45P Dictated by : PATY US MD This examination was interpreted and the report reviewed and electronically signed by: PATY US MD on Feb 16 2025 8:47PM EST [id number] Normal [facility] Bilirubin Test strip Ql (U)O rdered By: Tab Dupont on 02-15-2025 Bilirubin Ql (U) Negative Negative [facility] Ketones Test strip Ql (U)Ord ered By: Tab Dupont on 02-15-2025 Ketones Ql (U) Negative Negative [facility] Microscopic analysis of urin e for red blood cells (RBC)Ordered By: Tab Dupont on 02-15-2025 Microscopic analysis of urine for red blood cells (RBC) 10-25 SEEN /hpf 0-5 [facility] Mucus LM Ql (Urine sed)Order ed By: Tab Dupont on 02-15-2025 Mucus Ql (Urine sed) 0 SEEN /hpf [facility] Nitrite Test strip Ql (U)Ord ered By: Tab Dupont on 02-15-2025 Nitrite Ql (U) Positive High Negative [facility] Protein Test strip Ql (U)Ord ered By: Tab Dupont on 02-15-2025 Protein Ql (U) 100 mg/dl High Negative [facility] Squamous epithelial cells de tection in urine sediment by light microscopyOrdered By: Tab Dupont on 02-15-2025 Epithelial cells.squamous LM Ql (Urine sed) 0 SEEN /hpf 0-5 [facility] Urinalysis, Completeon 02-15 RBC 10-25 SEEN Normal 0-5 [facility] Comment on above: Order Comment: 313-2 Performed By: #### L 100.0500, L500.2500 #### [facility] [address] [place], [address] BACTERIA 2+ /hpf Normal None Seen [facility] Comment on above: Order Comment: 313-2 Performed By: #### L 100.0500, L500.2500 #### [facility] [address] [place], [address] WBC 25-50 SEEN Normal 0-5 [facility] Comment on above: Order Comment: 313-2 Performed By: #### L 100.0500, L500.2500 #### [facility] [address] [place], [address] EPI,SQUAMOUS 0 SEEN Normal 0-5 [facility] Comment on above: Order Comment: 313-2 Performed By: #### L 100.0500, L500.2500 #### [facility] [address] [place], [address] Mucus Ql (Urine sed) 0 SEEN Normal [facility] Comment on above: Order Comment: 313-2 Performed By: #### L 100.0500, L500.2500 #### [facility] [address] [place], [address] Urine clarityOrdered By: Regino Dupont on 02-15-2025 Clarity (U) Sl. Cloudy Clear [facility] Urine color determinationOrd ered By: Tab Dupont on 02-15-2025 Color (U) Yellow Yellow [facility] Urine cultureOrdered By: Regino Dupont on 02-15-2025 Bacteria identified Cx Nom (U) Citrobacter freundii Abnormal [facility] Bacteria identified Cx Nom (U) Providencia stuartii Abnormal [facility] Bacteria identified Cx Nom (U) Proteus mirabilis Abnormal [facility] Bacteria identified Cx Nom (U) Enterococcus faecalis Abnormal [facility] Urine glucose detectionOrder ed By: Tab Dupont on 02-15-2025 Glucose Ql (U) Normal mg/dl Normal [facility] Urine leukocyte esterase det ection by dipstickOrdered By: Tab Dupont on 02-15-2025 Leukocyte esterase Test strip Ql (U) 500 /ul High Negative [facility] Urine pHOrdered By: Tab cordova on 02-15-2025 pH (U) 6.5 [pH] 5.0 - 8.0 [facility] Urine sediment bacteria coun t by microscopy (number/high power field)Ordered By: Tab Dupont on 02-15-2025 Bacteria LM.HPF (Urine sed) [#/Area] 2 /[HPF] None Seen [facility] Urine specific gravity measu rementOrdered By: Tab Dupont on 02-15-2025 Specific gravity (U) [Rel density] 1.010 1.002-1.030 [facility] Urine urobilinogen measureme ntOrdered By: Tab Dupont on 02-15-2025 Urobilinogen Ql (U) Normal mg/dl Normal [facility] White blood cell countOrdere d By: Tab Dupont on 02-15-2025 White blood cell count 25-50 SEEN /hpf 0-5 [facility] CNOVon 01-31-2025 CNOV Office Visit (PLWDMR ) ANMOL REYNOLDS ([id number]) 1960 M Date Time Provider Department 01/31/25 1:30 PM MILAD GOODSON PLWDMR During your visit today, we recorded the following information about you: Temperature Pulse Respiration Blood pressure 98.6 degrees 80/minute 18/minute 136/90 Rj Brooks, LIBRADO 01/31/2025 2:59 PM Addendum Nursing Documentation Pertinent Medical History: paraplegia, MRSA, osteomyelitis, UTI, DM2, neuropathy, pyelonephritis, Wound Etiology according to patient: sacrum wound has had for four years per pt Patient arrived via: self in motorized wheelchair [facility] Consent captured for debridement per (Provider) and good until Special Instructions (for example, patient stands at the bedside for exam/dressing): bed Anticoagulant Therapy: aspirin Living Situation (ie... Apartment, house, CORRECTION): [facility] Who lives with patient: facility Who [...] BY PROVIDER: Anesthetic Used: N/A applied per museum preparator # 1 AND 2 Other procedure: Specimen [...] alginate AG Covered and secured with: 4x4 [place] SAP Other: COMPRESSION: N/A DME: Prism order date __ DME: [employer] , PH: [phone] SPECIAL NEEDS: Coordination of care N/A Emotional support N/A OR set-up N/A Diagnostic Sales Specialist N/A Incontinence needs N/A DISCHARGED in stable condition to: facility in motorized wheelchair PLAN/ORDERS: - Return to the Wound Center to see Milad Goodson MD in 6 weeks. - Blood work ordered please go to any [facility] lab. - Please send patient with medication list at next appointment. - Continue aggressive nutritional support to assist wound healing - CAT Scans AND MRI need to be scheduled through [facility]. Call [phone].(If applicable) EDUCATION: The patient/family was instructed how [...] the p (more content not included)... Normal [facility] Anion gap in Serum or Plasma Ordered By: Tab Dupont on 01-09-2025 Anion gap [Moles/Vol] 12 mmol/L - [facility] BUN/creatinine ratioOrdered By: Tab Dupont on 01-09-2025 Urea nitrogen/Creatinine [Mass ratio] 17.9 mg/mg - [facility] Basic Metabolic Profile (BMP )on 01-09-2025 BUN/CRE 17.9 RATIO Normal - [facility] Comment on above: Order Comment: 313.2 Performed By: #### L 500.2500, L100.0500 #### [facility] [address] [place], [address] Calcium [Mass/Vol] 8.7 mg/dL Normal 7.6-11.0 [facility] Comment on above: Order Comment: 313.2 Performed By: #### L 500.2500, L100.0500 #### [facility] [address] [place], [address] Chloride [Moles/Vol] 110 mmol/L High 98-108 [facility] Comment on above: Order Comment: 313.2 Performed By: #### L 500.2500, L100.0500 #### [facility] [address] [place], [address] CO2 [Moles/Vol] 19.2 mmol/L Low 21.0-32.0 [facility] Comment on above: Order Comment: 313.2 Performed By: #### L 500.2500, L100.0500 #### [facility] [address] [place], [address] Creatinine [Mass/Vol] 0.42 mg/dL Low 0.70-1.20 [facility] Comment on above: Order Comment: 313.2 Performed By: #### L 500.2500, L100.0500 #### [facility] [address] [place], [address] GAP 12 Normal 5-15 [facility] Comment on above: Order Comment: 313.2 Performed By: #### L 500.2500, L100.0500 #### [facility] [address] [place], [address] GFR/1.73 sq M.predicted among non-blacks MDRD (S/P/Bld) [Vol rate/Area] 121 mL/min/{1.73_m2} Normal >60 [facility] Comment on above: Order Comment: 313.2 Result Comment: mL/m in/1.73m2 CKD-EPI Creatinine Equation (2020) Performed By: #### L 500.2500, L100.0500 #### [facility] [address] [place], [address] Glucose [Mass/Vol] 120 mg/dL High 70-99 [facility] Comment on above: Order Comment: 313.2 Performed By: #### L 500.2500, L100.0500 #### [facility] [address] [place], [address] Potassium [Moles/Vol] 4.0 mmol/L Normal 3.3-5.1 [facility] Comment on above: Order Comment: 313.2 Result Comment: Hemo lysis present, Results??could be affected. ?? Performed By: #### L 500.2500, L100.0500 #### [facility] [address] [place], [address] Sodium [Moles/Vol] 141 mmol/L Normal 133-145 [facility] Comment on above: Order Comment: 313.2 Performed By: #### L 500.2500, L100.0500 #### [facility] [address] [place], [address] Urea nitrogen [Mass/Vol] 8 mg/dL Normal 4-19 [facility] Comment on above: Order Comment: 313.2 Performed By: #### L 500.2500, L100.0500 #### [facility] [address] [place], [address] CBC-Complete Blood Cnt No Di ffon 01-09-2025 Erythrocyte distribution width (RBC) [Ratio] 13.9 % Normal 11.6-14.6 [facility] Comment on above: Order Comment: 313.2 Performed By: #### L 500.2500, L100.0500 #### [facility] [address] [place], [address] Hematocrit (Bld) [Volume fraction] 39.3 % Low 40-54 [facility] Comment on above: Order Comment: 313.2 Performed By: #### L 500.2500, L100.0500 #### [facility] [address] [place], [address] Hemoglobin (Bld) [Mass/Vol] 13.1 g/dL Normal 13.0-16.5 [facility] Comment on above: Order Comment: 313.2 Performed By: #### L 500.2500, L100.0500 #### [facility] [address] [place], [address] MCH (RBC) [Entitic mass] 30.9 pg Normal 27.0-32.0 [facility] Comment on above: Order Comment: 313.2 Performed By: #### L 500.2500, L100.0500 #### [facility] [address] [place], [address] MCHC (RBC) [Mass/Vol] 33.3 g/dL Normal 32-36 [facility] Comment on above: Order Comment: 313.2 Performed By: #### L 500.2500, L100.0500 #### [facility] [address] [place], [address] MCV (RBC) [Entitic vol] 92.7 fL Normal 80-94 [facility] Comment on above: Order Comment: 313.2 Performed By: #### L 500.2500, L100.0500 #### [facility] [address] [place], [address] Platelet mean volume (Bld) [Entitic vol] 11.1 fL Normal 6.2-12.0 [facility] Comment on above: Order Comment: 313.2 Performed By: #### L 500.2500, L100.0500 #### [facility] [address] [place], [address] Platelets (Bld) [#/Vol] 255 10*3/uL Normal 150-450 [facility] Comment on above: Order Comment: 313.2 Performed By: #### L 500.2500, L100.0500 #### [facility] [address] [place], [address] RBC (Bld) [#/Vol] 4.24 10*6/uL Low 4.6-6.2 [facility] Comment on above: Order Comment: 313.2 Performed By: #### L 500.2500, L100.0500 #### [facility] [address] [place], [address] RDW SD 47.3 fl High 35.1-43.9 [facility] Comment on above: Order Comment: 313.2 Performed By: #### L 500.2500, L100.0500 #### [facility] [address] [place], [address] WBC (Bld) [#/Vol] 7.1 10*3/uL Normal 4.4-11.0 [facility] Comment on above: Order Comment: 313.2 Performed By: #### L 500.2500, L100.0500 #### [facility] [address] [place], [address] Carbon dioxide, total [Moles /volume] in Central venous bloodOrdered By: Tab Dupont on 01-09-2025 CO2 [Moles/Vol] 19.2 mmol/L Low 21.0-32.0 [facility] Chloride assayOrdered By: Vinh Lehman on 01-09-2025 Chloride [Moles/Vol] 110 mmol/L High 98-[facility] Erythrocyte distribution wid th ratioOrdered By: Tab Dupont on 01-09-2025 Erythrocyte distribution width (RBC) [Ratio] 13.9 % 11.6-14.6 [facility] Erythrocyte distribution wid th standard deviationOrdered By: Tab Dupont on 01-09-2025 Erythrocyte distribution width (RBC) [Ratio] 47.3 fl High 35.1-43.9 [facility] Glomerular filtration rate ( GFR) estimation/1.73 sq m using serum, plasma, or whole bOrdered By: Tab Dupont on 01-09-2025 GFR/1.73 sq M.predicted among non-blacks MDRD (S/P/Bld) [Vol rate/Area] 121 mL/min/{1.73_m2} >60 [facility] Comment on above: mL/min/1.73m2 CKD-EP I Creatinine Equation (2020) Hematocrit Auto (Bld) [Volum e fraction]Ordered By: Tab Dupont on 01-09-2025 Hematocrit (Bld) [Volume fraction] 39.3 % Low 40-54 [facility] Hemoglobin measurementOrdere d By: Tab Dupont on 01-09-2025 Hemoglobin (Bld) [Mass/Vol] 13.1 g/dL 13.0-16.5 [facility] MCV (mean corpuscular volume ) determinationOrdered By: Tab Dupont on 01-09-2025 MCV (RBC) [Entitic vol] 92.7 fL 80-94 [facility] Mean corpuscular hemoglobin (MCH) determinationOrdered By: Tab Dupont on 01-09-2025 MCH (RBC) [Entitic mass] 30.9 pg 27.0-32.0 [facility] Mean corpuscular hemoglobin concentration (MCHC) determinationOrdered By: Tab Dupont on 01-09-2025 MCHC (RBC) [Mass/Vol] 33.3 g/dL 32-36 [facility] Mean platelet volume determi nationOrdered By: Tab Dupont on 01-09-2025 Platelet mean volume (Bld) [Entitic vol] 11.1 fL 6.2-12.0 [facility] Platelet countOrdered By: Vinh Lehman on 01-09-2025 Platelets (Bld) [#/Vol] 255 10*3/uL 150-450 [facility] Potassium measurement (mass/ volume)Ordered By: Tab Dupont on 01-09-2025 Potassium (Unsp spec) [Mass/Vol] 4.0 mmol/L 3.3-5.1 [facility] Comment on above: Hemolysis present, R esults could be affected. RBC Auto (Bld) [#/Vol]Ordere d By: Tab Dupont on 01-09-2025 RBC (Bld) [#/Vol] 4.24 10*6/uL Low 4.6-6.2 [facility] Serum creatinine measurement (mass/volume)Ordered By: Tab Dupont on 01-09-2025 Creatinine [Mass/Vol] 0.42 mg/dL Low 0.70-1.20 [facility] Serum glucose measurement (m ass/volume)Ordered By: Tab Dupont on 01-09-2025 Glucose [Mass/Vol] 120 mg/dL High 70-99 [facility] Serum or plasma calcium randall urement (mass/volume)Ordered By: Tab Dupont on 01-09-2025 Calcium [Mass/Vol] 8.7 mg/dL 7.6-11.0 [facility] Serum or plasma urea nitroge n measurement (mass/volume)Ordered By: Tab Dupont on 01-09-2025 Urea nitrogen [Mass/Vol] 8 mg/dL 4-19 [facility] Sodium levelOrdered By: Omar Dupont on 01-09-2025 Sodium [Moles/Vol] 141 mmol/L 133-145 [facility] White blood cell (WBC) count Ordered By: Tab Dupont on 01-09-2025 WBC (Bld) [#/Vol] 7.1 10*3/uL 4.4-11.0 [facility] MRI SACRUM/COCCYX WO/W IVCON on 01-04-2025 MRI SACRUM/COCCYX WO/W IVCON * * *Final Report* * * DATE OF EXAM: Jan 04 2025 9:45AM [facility] 0236 - MRI SACRUM/COCCYX WO/W IVCON / [...] the adjacent S5 segment of the sacrum. Pearl Fisherman: PSCB Transcribe Date/Time: Jan 06 2025 1:16P Dictated by : COLE SHIPMAN DO This examination was interpreted and the report reviewed and electronically signed by: COLE SHIPMAN DO on Jan 06 2025 1:36PM EST [id number] N Normal [facility] Anion gap in Serum or Plasma Ordered By: Tab Dupont on 12-07-2024 Anion gap [Moles/Vol] 10 mmol/L - [facility] BUN/creatinine ratioOrdered By: Tab Dupont on 12-07-2024 Urea nitrogen/Creatinine [Mass ratio] 20.1 mg/mg High - [facility] Basic Metabolic Profile (BMP )on 12-07-2024 BUN/CRE 20.1 RATIO High - [facility] Comment on above: Order Comment: 313-2 Performed By: #### L 100.0500, L500.2500 #### [facility] [address] [place], [address] Calcium [Mass/Vol] 8.6 mg/dL Normal 7.6-11.0 [facility] Comment on above: Order Comment: 313-2 Performed By: #### L 100.0500, L500.2500 #### [facility] [address] [place], [address] Chloride [Moles/Vol] 104 mmol/L Normal 98-108 [facility] Comment on above: Order Comment: 313-2 Performed By: #### L 100.0500, L500.2500 #### [facility] [address] [place], [address] CO2 [Moles/Vol] 21.3 mmol/L Normal 21.0-32.0 [facility] Comment on above: Order Comment: 313-2 Performed By: #### L 100.0500, L500.2500 #### [facility] [address] [place], [address] Creatinine [Mass/Vol] 0.47 mg/dL Low 0.70-1.20 [facility] Comment on above: Order Comment: 313-2 Performed By: #### L 100.0500, L500.2500 #### [facility] [address] [place], [address] GAP 10 Normal 5-15 [facility] Comment on above: Order Comment: 313-2 Performed By: #### L 100.0500, L500.2500 #### [facility] [address] [place], [address] GFR/1.73 sq M.predicted among non-blacks MDRD (S/P/Bld) [Vol rate/Area] 117 mL/min/{1.73_m2} Normal >60 [facility] Comment on above: Order Comment: 313-2 Result Comment: mL/m in/1.73m2 CKD-EPI Creatinine Equation (2020) Performed By: #### L 100.0500, L500.2500 #### [facility] [address] [place], [address] Glucose [Mass/Vol] 194 mg/dL High 70-99 [facility] Comment on above: Order Comment: 313-2 Performed By: #### L 100.0500, L500.2500 #### [facility] [address] [place], [address] Potassium [Moles/Vol] 4.3 mmol/L Normal 3.3-5.1 [facility] Comment on above: Order Comment: 313-2 Performed By: #### L 100.0500, L500.2500 #### [facility] [address] [place], [address] Sodium [Moles/Vol] 136 mmol/L Normal 133-145 [facility] Comment on above: Order Comment: 313-2 Performed By: #### L 100.0500, L500.2500 #### [facility] [address] [place], [address] Urea nitrogen [Mass/Vol] 9 mg/dL Normal 4-19 [facility] Comment on above: Order Comment: 313-2 Performed By: #### L 100.0500, L500.2500 #### [facility] [address] [place], [address] CBC-Complete Blood Cnt No Di ffon 12-07-2024 Erythrocyte distribution width (RBC) [Ratio] 14.0 % Normal 11.6-14.6 [facility] Comment on above: Order Comment: 313-2 Performed By: #### L 100.0500, L500.2500 #### [facility] [address] [place], [address] Hematocrit (Bld) [Volume fraction] 38.2 % Low 40-54 [facility] Comment on above: Order Comment: 313-2 Performed By: #### L 100.0500, L500.2500 #### [facility] [address] [place], [address] Hemoglobin (Bld) [Mass/Vol] 12.8 g/dL Low 13.0-16.5 [facility] Comment on above: Order Comment: 313-2 Performed By: #### L 100.0500, L500.2500 #### [facility] [address] [place], [address] MCH (RBC) [Entitic mass] 30.9 pg Normal 27.0-32.0 [facility] Comment on above: Order Comment: 313-2 Performed By: #### L 100.0500, L500.2500 #### [facility] [address] [place], [address] MCHC (RBC) [Mass/Vol] 33.5 g/dL Normal 32-36 [facility] Comment on above: Order Comment: 313-2 Performed By: #### L 100.0500, L500.2500 #### [facility] [address] [place], [address] MCV (RBC) [Entitic vol] 92.3 fL Normal 80-94 [facility] Comment on above: Order Comment: 313-2 Performed By: #### L 100.0500, L500.2500 #### [facility] [address] [place], [address] Platelet mean volume (Bld) [Entitic vol] 10.5 fL Normal 6.2-12.0 [facility] Comment on above: Order Comment: 313-2 Performed By: #### L 100.0500, L500.2500 #### [facility] [address] [place], [address] Platelets (Bld) [#/Vol] 241 10*3/uL Normal 150-450 [facility] Comment on above: Order Comment: 313-2 Performed By: #### L 100.0500, L500.2500 #### [facility] [address] [place], [address] RBC (Bld) [#/Vol] 4.14 10*6/uL Low 4.6-6.2 [facility] Comment on above: Order Comment: 313-2 Performed By: #### L 100.0500, L500.2500 #### [facility] [address] [place], [address] RDW SD 47.9 fl High 35.1-43.9 [facility] Comment on above: Order Comment: 313-2 Performed By: #### L 100.0500, L500.2500 #### [facility] [address] [place], [address] WBC (Bld) [#/Vol] 6.6 10*3/uL Normal 4.4-11.0 [facility] Comment on above: Order Comment: 313-2 Performed By: #### L 100.0500, L500.2500 #### [facility] [address] [place], [address] Carbon dioxide, total [Moles /volume] in Central venous bloodOrdered By: Tab Dupont on 12-07-2024 CO2 [Moles/Vol] 21.3 mmol/L 21.0-32.0 [facility] Chloride assayOrdered By: Vinh Lehman on 12-07-2024 Chloride [Moles/Vol] 104 mmol/L 98-108 [facility] Erythrocyte distribution wid th ratioOrdered By: Tab Dupont on 12-07-2024 Erythrocyte distribution width (RBC) [Ratio] 14.0 % 11.6-14.6 [facility] Erythrocyte distribution wid th standard deviationOrdered By: Tab Dupont on 12-07-2024 Erythrocyte distribution width (RBC) [Entitic vol] 47.9 fL High 35.1-43.9 [facility] Erythrocyte distribution width (RBC) [Ratio] 47.9 fl High 35.1-43.9 [facility] GFR/1.73 sq M.predicted trish g non-blacks MDRD (S/P/Bld) [Vol rate/Area]Ordered By: Tab Dupont on 12-07-2024 Estimated GFR (MDRD) Non-Af Amer 117 >60 [facility] Comment on above: mL/min/1.73m2 CKD-EP I Creatinine Equation (2020) Glomerular filtration rate ( GFR) estimation/1.73 sq m using serum, plasma, or whole bOrdered By: Tab Dupont on 12-07-2024 GFR/1.73 sq M.predicted among non-blacks MDRD (S/P/Bld) [Vol rate/Area] 117 mL/min/{1.73_m2} >60 [facility] Comment on above: mL/min/1.73m2 CKD-EP I Creatinine Equation (2020) Hematocrit Auto (Bld) [Volum e fraction]Ordered By: Tab Dupont on 12-07-2024 Hematocrit (Bld) [Volume fraction] 38.2 % Low 40-54 [facility] Hemoglobin measurementOrdere d By: Tab Dupont on 12-07-2024 Hemoglobin (Bld) [Mass/Vol] 12.8 g/dL Low 13.0-16.5 [facility] MCV (mean corpuscular volume ) determinationOrdered By: Tab Dupont on 12-07-2024 MCV (RBC) [Entitic vol] 92.3 fL 80-94 [facility] Mean corpuscular hemoglobin (MCH) determinationOrdered By: Tab Dupont on 12-07-2024 MCH (RBC) [Entitic mass] 30.9 pg 27.0-32.0 [facility] Mean corpuscular hemoglobin concentration (MCHC) determinationOrdered By: Tab Dupont on 12-07-2024 MCHC (RBC) [Mass/Vol] 33.5 g/dL 32-36 [facility] Mean platelet volume determi nationOrdered By: Tab Dupont on 12-07-2024 Platelet mean volume (Bld) [Entitic vol] 10.5 fL 6.2-12.0 [facility] Platelet countOrdered By: Vinh Lehman on 12-07-2024 Platelets (Bld) [#/Vol] 241 10*3/uL 150-450 [facility] Potassium (Unsp spec) [Mass/ Vol]Ordered By: Tab Dupont on 12-07-2024 Potassium [Moles/Vol] 4.3 mmol/L 3.3-5.1 [facility] Potassium measurement (mass/ volume)Ordered By: Tab Dupont on 12-07-2024 Potassium (Unsp spec) [Mass/Vol] 4.3 mmol/L 3.3-5.1 [facility] RBC Auto (Bld) [#/Vol]Ordere d By: Tab Dupont on 12-07-2024 RBC (Bld) [#/Vol] 4.14 10*6/uL Low 4.6-6.2 [facility] Serum creatinine measurement (mass/volume)Ordered By: Tab Dupont on 12-07-2024 Creatinine [Mass/Vol] 0.47 mg/dL Low 0.70-1.20 [facility] Serum glucose measurement (m ass/volume)Ordered By: Tab Dupont on 12-07-2024 Glucose [Mass/Vol] 194 mg/dL High 70-99 [facility] Serum or plasma calcium randall urement (mass/volume)Ordered By: Tab Dupont on 12-07-2024 Calcium [Mass/Vol] 8.6 mg/dL 7.6-11.0 [facility] Serum or plasma urea nitroge n measurement (mass/volume)Ordered By: Tab Dupont on 12-07-2024 Urea nitrogen [Mass/Vol] 9 mg/dL 4-19 [facility] Sodium levelOrdered By: Omar Dupont on 12-07-2024 Sodium [Moles/Vol] 136 mmol/L 133-145 [facility] White blood cell (WBC) count Ordered By: Tab Dupont on 12-07-2024 WBC (Bld) [#/Vol] 6.6 10*3/uL 4.4-11.0 [facility] Urine Cultureon 12-02-2024 [facility] STRAIGHT CATH Copy of report sent to Infection Control Printer [id number] 12/02/24 1017 JIM. Urine Culture RESULTS CALLED TO LUKASZ Batista 12/02/24 1021 Erika Rosario. REPORT READ BACK BY . Citrobacter freundii [place] Count >100,000 Providencia stuartii Providencia stuartii MARKER [...] R Vancomycin Islt HARINDER 1 S Normal [facility] Comment on above: Performed By: #### L 500.2500, L100.0500 #### [facility] [address] [place], [address] BUN/creatinine ratioOrdered By: Tab Dupont on 11-30-2024 Urea nitrogen/Creatinine [Mass ratio] 23.9 mg/mg High 10-20 [facility] Basic Metabolic Profile (BMP )on 11-30-2024 Anion gap [Moles/Vol] 9 mmol/L Normal 5-15 [facility] Comment on above: Order Comment: 313-2 Performed By: #### L 100.0500, L500.2500 #### [facility] [address] [place], [address] BUN/CRE 23.9 RATIO High 10-20 [facility] Comment on above: Order Comment: 313-2 Performed By: #### L 100.0500, L500.2500 #### [facility] [address] [place], [address] Calcium [Mass/Vol] 8.4 mg/dL Normal 7.6-11.0 [facility] Comment on above: Order Comment: 313-2 Performed By: #### L 100.0500, L500.2500 #### [facility] [address] [place], [address] Chloride [Moles/Vol] 105 mmol/L Normal 96-108 [facility] Comment on above: Order Comment: 313-2 Performed By: #### L 100.0500, L500.2500 #### [facility] [address] [place], [address] CO2 [Moles/Vol] 22.7 mmol/L Normal 22.0-29.0 [facility] Comment on above: Order Comment: 313-2 Performed By: #### L 100.0500, L500.2500 #### [facility] [address] [place], [address] Creatinine [Mass/Vol] 0.4 mg/dL Low 0.8-1.3 [facility] Comment on above: Order Comment: 313-2 Performed By: #### L 100.0500, L500.2500 #### [facility] [address] [place], [address] GFR/1.73 sq M.predicted among non-blacks MDRD (S/P/Bld) [Vol rate/Area] 120 mL/min/{1.73_m2} Normal >60 [facility] Comment on above: Order Comment: 313-2 Result Comment: mL/m in/1.73m2 CKD-EPI Creatinine Equation (2020) Performed By: #### L 100.0500, L500.2500 #### [facility] [address] [place], [address] Glucose [Mass/Vol] 170 mg/dL High 70-99 [facility] Comment on above: Order Comment: 313-2 Performed By: #### L 100.0500, L500.2500 #### [facility] [address] [place], [address] Potassium [Moles/Vol] 3.8 mmol/L Normal 3.3-5.1 [facility] Comment on above: Order Comment: 313-2 Performed By: #### L 100.0500, L500.2500 #### [facility] [address] [place], [address] Sodium [Moles/Vol] 137 mmol/L Normal 133-145 [facility] Comment on above: Order Comment: 313-2 Performed By: #### L 100.0500, L500.2500 #### [facility] [address] [place], [address] Urea nitrogen [Mass/Vol] 10 mg/dL Normal 4-19 [facility] Comment on above: Order Comment: 313-2 Performed By: #### L 100.0500, L500.2500 #### [facility] [address] [place], [address] CBC-Complete Blood Cnt No Di ffon 11-30-2024 Erythrocyte distribution width (RBC) [Ratio] 13.7 % Normal 11.6-14.6 [facility] Comment on above: Order Comment: 313-2 Performed By: #### L 100.0500, L500.2500 #### [facility] [address] [place], [address] Hematocrit (Bld) [Volume fraction] 37.1 % Low 40-54 [facility] Comment on above: Order Comment: 313-2 Performed By: #### L 100.0500, L500.2500 #### [facility] [address] [place], [address] Hemoglobin (Bld) [Mass/Vol] 12.0 g/dL Low 13.0-16.5 [facility] Comment on above: Order Comment: 313-2 Performed By: #### L 100.0500, L500.2500 #### [facility] [address] [place], [address] MCH (RBC) [Entitic mass] 29.9 pg Normal 27.0-32.0 [facility] Comment on above: Order Comment: 313-2 Performed By: #### L 100.0500, L500.2500 #### [facility] [address] [place], [address] MCHC (RBC) [Mass/Vol] 32.3 g/dL Normal 32-36 [facility] Comment on above: Order Comment: 313-2 Performed By: #### L 100.0500, L500.2500 #### [facility] [address] [place], [address] MCV (RBC) [Entitic vol] 92.5 fL Normal 80-94 [facility] Comment on above: Order Comment: 313-2 Performed By: #### L 100.0500, L500.2500 #### [facility] [address] [place], [address] Platelet mean volume (Bld) [Entitic vol] 11.1 fL Normal 6.2-12.0 [facility] Comment on above: Order Comment: 313-2 Performed By: #### L 100.0500, L500.2500 #### [facility] [address] [place], [address] Platelets (Bld) [#/Vol] 230 10*3/uL Normal 150-450 [facility] Comment on above: Order Comment: 313-2 Performed By: #### L 100.0500, L500.2500 #### [facility] [address] [place], [address] RBC (Bld) [#/Vol] 4.01 10*6/uL Low 4.6-6.2 [facility] Comment on above: Order Comment: 313-2 Performed By: #### L 100.0500, L500.2500 #### [facility] [address] [place], [address] RDW SD 46.8 fl High 35.1-43.9 [facility] Comment on above: Order Comment: 313-2 Performed By: #### L 100.0500, L500.2500 #### [facility] [address] [place], [address] WBC (Bld) [#/Vol] 6.3 10*3/uL Normal 4.4-11.0 [facility] Comment on above: Order Comment: 313-2 Performed By: #### L 100.0500, L500.2500 #### [facility] [address] [place], [address] Carbon dioxide measurementOr dered By: Tab Dupont on 11-30-2024 CO2 [Moles/Vol] 22.7 mmol/L 22.0-29.0 [facility] Chloride measurementOrdered By: Tab Dupont on 11-30-2024 Chloride [Moles/Vol] 105 mmol/L 96-108 [facility] Creatinine [Moles/Vol]Ordere d By: Tab Dupont on 11-30-2024 Creatinine [Mass/Vol] 0.4 mg/dL Low 0.8-1.3 [facility] Erythrocyte distribution wid th ratioOrdered By: Tab Dupont on 11-30-2024 Erythrocyte distribution width (RBC) [Ratio] 13.7 % 11.6-14.6 [facility] Erythrocyte distribution wid th standard deviationOrdered By: Tab Dupont on 11-30-2024 Erythrocyte distribution width (RBC) [Entitic vol] 46.8 fL High 35.1-43.9 [facility] Erythrocyte distribution width (RBC) [Ratio] 46.8 fl High 35.1-43.9 [facility] GFR/1.73 sq M.predicted trish g non-blacks MDRD (S/P/Bld) [Vol rate/Area]Ordered By: Tab Dupont on 11-30-2024 Estimated GFR (MDRD) Non-Af Amer 120 >60 [facility] Comment on above: mL/min/1.73m2 CKD-EP I Creatinine Equation (2020) Glomerular filtration rate ( GFR) estimation/1.73 sq m using serum, plasma, or whole bOrdered By: Tab Dupont on 11-30-2024 GFR/1.73 sq M.predicted among non-blacks MDRD (S/P/Bld) [Vol rate/Area] 120 mL/min/{1.73_m2} >60 [facility] Comment on above: mL/min/1.73m2 CKD-EP I Creatinine Equation (2020) Hematocrit Auto (Bld) [Volum e fraction]Ordered By: Tab Dupont on 11-30-2024 Hematocrit (Bld) [Volume fraction] 37.1 % Low 40-54 [facility] Hemoglobin measurementOrdere d By: Tab Dupont on 11-30-2024 Hemoglobin (Bld) [Mass/Vol] 12.0 g/dL Low 13.0-16.5 [facility] MCV (mean corpuscular volume ) determinationOrdered By: Tab Dupont on 11-30-2024 MCV (RBC) [Entitic vol] 92.5 fL 80-94 [facility] Mean corpuscular hemoglobin (MCH) determinationOrdered By: Tab Dupont on 11-30-2024 MCH (RBC) [Entitic mass] 29.9 pg 27.0-32.0 [facility] Mean corpuscular hemoglobin concentration (MCHC) determinationOrdered By: Tab Dupont on 11-30-2024 MCHC (RBC) [Mass/Vol] 32.3 g/dL 32-36 [facility] Mean platelet volume determi nationOrdered By: Tab Dupont on 11-30-2024 Platelet mean volume (Bld) [Entitic vol] 11.1 fL 6.2-12.0 [facility] Platelet countOrdered By: Vinh Lehman on 11-30-2024 Platelets (Bld) [#/Vol] 230 10*3/uL 150-450 [facility] RBC Auto (Bld) [#/Vol]Ordere d By: Tab Dupont on 11-30-2024 RBC (Bld) [#/Vol] 4.01 10*6/uL Low 4.6-6.2 [facility] Serum glucose measurement (m ass/volume)Ordered By: Tab Dupont on 11-30-2024 Glucose [Mass/Vol] 170 mg/dL High 70-99 [facility] Serum or plasma anion gap de termination (moles/volume)Ordered By: Tab Dupont on 11-30-2024 Anion gap [Moles/Vol] 9 mmol/L 5-15 [facility] Serum or plasma calcium randall urement (mass/volume)Ordered By: Tab Dupont on 11-30-2024 Calcium [Mass/Vol] 8.4 mg/dL 7.6-11.0 [facility] Serum or plasma creatinine m easurement (moles/volume)Ordered By: Tab Dupont on 11-30-2024 Creatinine [Moles/Vol] 0.4 mg/dL Low 0.8-1.3 [facility] Serum or plasma potassium me asurementOrdered By: Tab Dupont on 11-30-2024 Potassium [Moles/Vol] 3.8 mmol/L 3.3-5.1 [facility] Serum or plasma sodium measu rement (moles/volume)Ordered By: Tab Dupont on 11-30-2024 Sodium [Moles/Vol] 137 mmol/L 133-145 [facility] Serum or plasma urea nitroge n measurement (mass/volume)Ordered By: Tab Dupont on 11-30-2024 Urea nitrogen [Mass/Vol] 10 mg/dL 4-19 [facility] White blood cell (WBC) count Ordered By: Tab Dupont on 11-30-2024 WBC (Bld) [#/Vol] 6.3 10*3/uL 4.4-11.0 [facility] Bilirubin Test strip Ql (U)O rdered By: Daisy Costello on 11-29-2024 Bilirubin Ql (U) Negative Negative [facility] Epithelial cells.squamous LM Ql (Urine sed)Ordered By: Daisy Costello on 11-29-2024 Epithelial cells.squamous LM.HPF (Urine sed) [#/Area] 0 /[HPF] 0-5 [facility] Glucose Ql (U)Ordered By: Jose Costello on 11-29-2024 Urine Glucose (UA) Normal mg/dl Normal [facility] Ketones Test strip Ql (U)Ord ered By: Daisy Costello on 11-29-2024 Ketones Ql (U) Negative Negative [facility] Microscopic analysis of urin e for red blood cells (RBC)Ordered By: Daisy Costello on 11-29-2024 Microscopic analysis of urine for red blood cells (RBC) 10-25 SEEN /hpf 0-5 [facility] Urine RBC 10-25 SEEN /hpf 0-5 [facility] Mucus LM Ql (Urine sed)Order ed By: Daisy Costello on 11-29-2024 Mucus Ql (Urine sed) 0 SEEN /hpf [facility] Nitrite Test strip Ql (U)Ord ered By: Daisy Costello on 11-29-2024 Nitrite Ql (U) Positive High Negative [facility] Protein Test strip Ql (U)Ord ered By: Daisy Costello on 11-29-2024 Protein Ql (U) 100 mg/dl High Negative [facility] Squamous epithelial cells de tection in urine sediment by light microscopyOrdered By: Daisy Costello on 11-29-2024 Epithelial cells.squamous LM Ql (Urine sed) 0 SEEN /hpf 0-5 [facility] Urinalysis, Completeon 11-29 BACTERIA 1+ /hpf Normal None Seen [facility] Comment on above: Order Comment: 313.2 Performed By: #### L 500.2500, L100.0500 #### [facility] [address] [place], [address] RBC 10-25 SEEN Normal [address] [place] [address] Comment on above: Order Comment: 313.2 Performed By: #### L 500.2500, L100.0500 #### [facility] [address] [place], [address] WBC >100 SEEN Normal [address] Comment on above: Order Comment: 313.2 Performed By: #### L 500.2500, L100.0500 #### [facility] [address] [place], [address] EPI,SQUAMOUS 0 SEEN Normal [address] [place] [address] Comment on above: Order Comment: 313.2 Performed By: #### L 500.2500, L100.0500 #### [facility] [address] [place], [address] Mucus Ql (Urine sed) 0 SEEN Normal [facility] Comment on above: Order Comment: 313.2 Performed By: #### L 500.2500, L100.0500 #### [facility] [address] [place], [address] Urine blood detectionOrdered By: Daisy Costello on 11-29-2024 Urine Occult Blood 250 /ul High Negative [facility] Urine clarityOrdered By: Ward Costello on 11-29-2024 Clarity (U) Cloudy Clear [facility] Urine color determinationOrd ered By: Daisy Costello on 11-29-2024 Color (U) Yellow Yellow [facility] Urine cultureOrdered By: Ward Costello on 11-29-2024 Bacteria identified Cx Nom (U) Citrobacter freundii Abnormal [facility] Bacteria identified Cx Nom (U) Providencia stuartii Abnormal [facility] Bacteria identified Cx Nom (U) Enterococcus faecalis Abnormal [facility] Bacteria identified Cx Nom (U) Citrobacter freundii Abnormal [facility] Bacteria identified Cx Nom (U) Providencia stuartii Abnormal [facility] Bacteria identified Cx Nom (U) Enterococcus faecalis Abnormal [facility] Urine glucose detectionOrder ed By: Daisy Costello on 11-29-2024 Glucose Ql (U) Normal mg/dl Normal [facility] Urine leukocyte esterase det ection by dipstickOrdered By: Daisy Costello on 11-29-2024 Leukocyte esterase Test strip Ql (U) 500 /ul High Negative [facility] Urine pHOrdered By: Colin on 11-29-2024 pH (U) 6.5 [pH] 5.0 - 8.0 [facility] Urine sediment bacteria coun t by microscopy (number/high power field)Ordered By: Daisy Costello on 11-29-2024 Bacteria LM.HPF (Urine sed) [#/Area] 1 /[HPF] None Seen [facility] Urine specific gravity measu rementOrdered By: Daisy Costello on 11-29-2024 Specific gravity (U) [Rel density] 1.010 1.002-1.030 [facility] Urine urobilinogen measureme ntOrdered By: Daisy Costello on 11-29-2024 Urobilinogen Ql (U) Normal mg/dl Normal [facility] Urobilinogen Ql (U)Ordered B y: Daisy Costello on 11-29-2024 Urine Urobilinogen Normal mg/dl Normal [facility] White blood cell countOrdere d By: Daisy Costello on 11-29-2024 Urine WBC >100 SEEN /hpf 0-5 [facility] White blood cell count >100 SEEN /hpf 0-5 [facility] Progress Noteson 11-08-2024 Department Chairperson Authentication Interface Message Text Documentation: Mode: Video Consent: This visit was initiated by the patient. Audio and visual communication was utilized in real-time. I confirmed understanding of risks and benefits of telehealth visits and obtained consent to proceed with the telemedicine visit. Location of Patient: Nursing Facility Time-Based Billing Justifications: Charting in [facility] Patient visit (including performing a medically appropriate [...] months (around 02/05/2025) for in-person visit with [facility]. Faisal Simeon DO 11/08/[address] [facility] 10-27-2024 36 Returned call unable to leave message doug was out for the day [facility] 10-26-2024 36 Name of caller: Dax banks Contact phone number: [phone] Relationship to Patient: Tierra Delvalle Provider: Dr. Gillette Practice: [facility] Chief Complaint/Reason for Call: Doug states she missed a call from the office to schedule the patient and would like a return call. Please review. Best time of day caller can be reached: any Patient advised that office/PCP has 24-48 business hours to return their call: Yes [facility] 36 Called and left message to call to reschedule appointment [place] [id number] 36 Name of Caller: Dax banks Contact Reason for Appointment: Please call to r/s cx appt for 10.26.24 due to weather conditions. Follow up for pain management//no showed on 08.04.24// Doug from [facility] appt//medicare medicaid Office Name: [facility] Medication Refills need, if any: n/a Medication Name: n/a Normal [facility] Basic Metabolic Profile (BMP )on 10-10-2024 BUN/CRE 19.6 RATIO Normal 10-20 [facility] Comment on above: Order Comment: 313-2 Performed By: #### L 100.0500, L500.2500 #### [facility] [address] [place], [address] CA,Total 8.7 mg/dL Normal 8.5-10.1 [facility] Comment on above: Order Comment: 313-2 Performed By: #### L 100.0500, L500.2500 #### [facility] [address] [place], [address] Chloride [Moles/Vol] 109 mmol/L High 98-107 [facility] Comment on above: Order Comment: 313-2 Performed By: #### L 100.0500, L500.2500 #### [facility] [address] [place], [address] CO2 [Moles/Vol] 22.0 mmol/L Normal 21.0-32.0 [facility] Comment on above: Order Comment: 313-2 Performed By: #### L 100.0500, L500.2500 #### [facility] [address] [place], [address] Creatinine [Mass/Vol] 0.56 mg/dL Low 0.70-1.30 [facility] Comment on above: Order Comment: 313-2 Result Comment: The validity of the calculated GFR GFRAA in patients over 70 years has not been determined. Clinical correlation is essential. Performed By: #### L 100.0500, L500.2500 #### [facility] [address] [place], [address] EST GFR - AA 189 mL/min Normal >60 [facility] Comment on above: Order Comment: 313-2 Result Comment: Afri can Uruguayan GFR Calc Performed By: #### L 100.0500, L500.2500 #### [facility] [address] [place], [address] GAP 7 Normal 5-15 [facility] Comment on above: Order Comment: 313-2 Performed By: #### L 100.0500, L500.2500 #### [facility] [address] [place], [address] GFR/1.73 sq M.predicted among non-blacks MDRD (S/P/Bld) [Vol rate/Area] 156 mL/min/{1.73_m2} Normal >60 [facility] Comment on above: Order Comment: 313-2 Result Comment: Non- GFR Calc Performed By: #### L 100.0500, L500.2500 #### [facility] [address] [place], [address] Glucose [Mass/Vol] 108 mg/dL High 74-106 [facility] Comment on above: Order Comment: 313-2 Result Comment: Fast ing Glucose result from 100 to 125 mg/dL suggests IMPAIRED HOMEOSTASIS per A.D.A. criteria. Performed By: #### L 100.0500, L500.2500 #### [facility] [address] [place], [address] Potassium [Moles/Vol] 4.0 mmol/L Normal 3.5-5.1 [facility] Comment on above: Order Comment: 313-2 Performed By: #### L 100.0500, L500.2500 #### [facility] [address] [place], [address] Sodium [Moles/Vol] 139 mmol/L Normal 136-145 [facility] Comment on above: Order Comment: 313-2 Performed By: #### L 100.0500, L500.2500 #### [facility] [address] [place], [address] Urea nitrogen [Mass/Vol] 11 mg/dL Normal 7-18 [facility] Comment on above: Order Comment: 313-2 Performed By: #### L 100.0500, L500.2500 #### [facility] [address] [place], [address] Blood urea nitrogen (BUN)/cr eatinine ratioOrdered By: Tab Dupont on 10-10-2024 Urea nitrogen/Creatinine [Mass ratio] 19.6 mg/mg 10-20 [facility] CBC-Complete Blood Cnt No Di ffon 10-10-2024 Erythrocyte distribution width (RBC) [Ratio] 13.9 % Normal 11.6-14.6 [facility] Comment on above: Order Comment: 313-2 Performed By: #### L 100.0500, L500.2500 #### [facility] [address] [place], [address] Hematocrit (Bld) [Volume fraction] 42.2 % Normal 40-54 [facility] Comment on above: Order Comment: 313-2 Performed By: #### L 100.0500, L500.2500 #### [facility] [address] [place], [address] Hemoglobin (Bld) [Mass/Vol] 13.4 g/dL Normal 13.0-16.5 [facility] Comment on above: Order Comment: 313-2 Performed By: #### L 100.0500, L500.2500 #### [facility] [address] [place], [address] MCH (RBC) [Entitic mass] 29.8 pg Normal 27.0-32.0 [facility] Comment on above: Order Comment: 313-2 Performed By: #### L 100.0500, L500.2500 #### [facility] [address] [place], [address] MCHC (RBC) [Mass/Vol] 31.8 g/dL Low 32-36 [facility] Comment on above: Order Comment: 313-2 Performed By: #### L 100.0500, L500.2500 #### [facility] [address] [place], [address] MCV (RBC) [Entitic vol] 94.0 fL Normal 80-94 [facility] Comment on above: Order Comment: 313-2 Performed By: #### L 100.0500, L500.2500 #### [facility] [address] [place], [address] Platelet mean volume (Bld) [Entitic vol] 10.5 fL Normal 6.2-12.0 [facility] Comment on above: Order Comment: 313-2 Performed By: #### L 100.0500, L500.2500 #### [facility] [address] [place], [address] Platelets (Bld) [#/Vol] 283 10*3/uL Normal 150-450 [facility] Comment on above: Order Comment: 313-2 Performed By: #### L 100.0500, L500.2500 #### [facility] [address] [place], [address] RBC (Bld) [#/Vol] 4.49 10*6/uL Low 4.6-6.2 [facility] Comment on above: Order Comment: 313-2 Performed By: #### L 100.0500, L500.2500 #### [facility] [address] [place], [address] RDW SD 47.8 fl High 35.1-43.9 [facility] Comment on above: Order Comment: 313-2 Performed By: #### L 100.0500, L500.2500 #### [facility] [address] [place], [address] WBC (Bld) [#/Vol] 7.7 10*3/uL Normal 4.4-11.0 [facility] Comment on above: Order Comment: 313-2 Performed By: #### L 100.0500, L500.2500 #### [facility] [address] [place], [address] Carbon dioxide measurementOr dered By: Tab Dupont on 10-10-2024 CO2 [Moles/Vol] 22.0 mmol/L 21.0-32.0 [facility] Chloride measurementOrdered By: Tab Dupont on 10-10-2024 Chloride [Moles/Vol] 109 mmol/L High 98-107 [facility] Erythrocyte distribution wid th ratioOrdered By: Tab Dupont on 10-10-2024 Erythrocyte distribution width (RBC) [Ratio] 13.9 % 11.6-14.6 [facility] Erythrocyte distribution wid th standard deviationOrdered By: Tab Dupont on 10-10-2024 Erythrocyte distribution width (RBC) [Entitic vol] 47.8 fL High 35.1-43.9 [facility] Estimated glomerular filtrat ion rate (GFR) AmericanOrdered By: Tab Dupont on 10-10-2024 Estimated GFR (MDRD) Amer 189 mL/min >60 [facility] Comment on above: GFR Calc Glomerular filtration rate ( GFR) estimationOrdered By: Tab Dupont on 10-10-2024 Estimated GFR (MDRD) Non-Af Amer 156 mL/min >60 [facility] Comment on above: Non- GFR Calc Glucose measurementOrdered B y: Tab Dupont on 10-10-2024 Glucose [Mass/Vol] 108 mg/dL High 74-106 [facility] Comment on above: Fasting Glucose resu lt from 100 to 125 mg/dL suggests IMPAIRED HOMEOSTASIS per A.D.A. criteria. Hematocrit Auto (Bld) [Volum e fraction]Ordered By: Tab Dupont on 10-10-2024 Hematocrit (Bld) [Volume fraction] 42.2 % 40-54 [facility] Hemoglobin measurementOrdere d By: Tab Dupont on 10-10-2024 Hemoglobin (Bld) [Mass/Vol] 13.4 g/dL 13.0-16.5 [facility] MCV (mean corpuscular volume ) determinationOrdered By: Tab Dupont on 10-10-2024 MCV (RBC) [Entitic vol] 94.0 fL 80-94 [facility] Mean corpuscular hemoglobin (MCH) determinationOrdered By: Tab Dupont on 10-10-2024 MCH (RBC) [Entitic mass] 29.8 pg 27.0-32.0 [facility] Mean corpuscular hemoglobin concentration (MCHC) determinationOrdered By: Tab Dupont on 10-10-2024 MCHC (RBC) [Mass/Vol] 31.8 g/dL Low 32-36 [facility] Mean platelet volume determi nationOrdered By: Tab Dupont on 10-10-2024 Platelet mean volume (Bld) [Entitic vol] 10.5 fL 6.2-12.0 [facility] Platelet countOrdered By: Vinh Lehman on 10-10-2024 Platelets (Bld) [#/Vol] 283 10*3/uL 150-450 [facility] Potassium measurementOrdered By: Tab Dupont on 10-10-2024 Potassium [Moles/Vol] 4.0 mmol/L 3.5-5.1 [facility] RBC Auto (Bld) [#/Vol]Ordere d By: Tab Dupont on 10-10-2024 RBC (Bld) [#/Vol] 4.49 10*6/uL Low 4.6-6.2 [facility] Serum anion gap measurementO rdered By: Tab Dupont on 10-10-2024 Anion gap [Moles/Vol] 7 mmol/L 5-15 [facility] Serum or plasma calcium randall urement (mass/volume)Ordered By: Tab Dupont on 10-10-2024 Calcium [Mass/Vol] 8.7 mg/dL 8.5-10.1 [facility] Serum or plasma creatinine m easurement (mass/volume)Ordered By: Tab Dupont on 10-10-2024 Creatinine [Mass/Vol] 0.56 mg/dL Low 0.70-1.30 [facility] Comment on above: The validity of the calculated GFR & GFRAA in patients over 70 years has not been determined. Clinical correlation is essential. Serum or plasma urea nitroge n measurement (mass/volume)Ordered By: Tab Dupont on 10-10-2024 Urea nitrogen [Mass/Vol] 11 mg/dL 7-18 [facility] Sodium levelOrdered By: Omar Dupont on 10-10-2024 Sodium [Moles/Vol] 139 mmol/L 136-145 [facility] White blood cell (WBC) count Ordered By: Tab Dupont on 10-10-2024 WBC (Bld) [#/Vol] 7.7 10*3/uL 4.4-11.0 [facility] Basic Metabolic Profile (BMP )on 10-03-2024 BUN/CRE 14.7 RATIO Normal 10-20 [facility] Comment on above: Order Comment: 313.2 Performed By: #### L 500.2500, L100.0500 #### [facility] [address] [place], [address] CA,Total 8.7 mg/dL Normal 8.5-10.1 [facility] Comment on above: Order Comment: 313.2 Performed By: #### L 500.2500, L100.0500 #### [facility] [address] [place], [address] Chloride [Moles/Vol] 109 mmol/L High 98-107 [facility] Comment on above: Order Comment: 313.2 Performed By: #### L 500.2500, L100.0500 #### [facility] [address] [place], [address] CO2 [Moles/Vol] 24.0 mmol/L Normal 21.0-32.0 [facility] Comment on above: Order Comment: 313.2 Performed By: #### L 500.2500, L100.0500 #### [facility] [address] [place], [address] Creatinine [Mass/Vol] 0.48 mg/dL Low 0.70-1.30 [facility] Comment on above: Order Comment: 313.2 Result Comment: The validity of the calculated GFR GFRAA in patients over 70 years has not been determined. Clinical correlation is essential. Performed By: #### L 500.2500, L100.0500 #### [facility] [address] [place], [address] EST GFR - AA 229 mL/min Normal >60 [facility] Comment on above: Order Comment: 313.2 Result Comment: Afri can [place] GFR Calc Performed By: #### L 500.2500, L100.0500 #### [facility] [address] [place], [address] GAP 5 Normal 5-15 [facility] Comment on above: Order Comment: 313.2 Performed By: #### L 500.2500, L100.0500 #### [facility] [address] [place], [address] GFR/1.73 sq M.predicted among non-blacks MDRD (S/P/Bld) [Vol rate/Area] 189 mL/min/{1.73_m2} Normal >60 [facility] Comment on above: Order Comment: 313.2 Result Comment: Non- GFR Calc Performed By: #### L 500.2500, L100.0500 #### [facility] [address] [place], [address] Glucose [Mass/Vol] 105 mg/dL Normal 74-106 [facility] Comment on above: Order Comment: 313.2 Result Comment: Fast ing Glucose result from 100 to 125 mg/dL suggests IMPAIRED HOMEOSTASIS per A.D.A. criteria. Performed By: #### L 500.2500, L100.0500 #### [facility] [address] [place], [address] Potassium [Moles/Vol] 3.7 mmol/L Normal 3.5-5.1 [facility] Comment on above: Order Comment: 313.2 Performed By: #### L 500.2500, L100.0500 #### [facility] [address] [place], [address] Sodium [Moles/Vol] 138 mmol/L Normal 136-145 [facility] Comment on above: Order Comment: 313.2 Performed By: #### L 500.2500, L100.0500 #### [facility] [address] [place], [address] Urea nitrogen [Mass/Vol] 7 mg/dL Normal 7-18 [facility] Comment on above: Order Comment: 313.2 Performed By: #### L 500.2500, L100.0500 #### [facility] [address] [place], [address] Blood urea nitrogen (BUN)/cr eatinine ratioOrdered By: Tab Dupont on 10-03-2024 Urea nitrogen/Creatinine [Mass ratio] 14.7 mg/mg 10-20 [facility] CBC-Complete Blood Cnt No Di ffon 10-03-2024 Erythrocyte distribution width (RBC) [Ratio] 14.0 % Normal 11.6-14.6 [facility] Comment on above: Order Comment: 313.2 Performed By: #### L 500.2500, L100.0500 #### [facility] [address] [place], [address] Hematocrit (Bld) [Volume fraction] 38.4 % Low 40-54 [facility] Comment on above: Order Comment: 313.2 Performed By: #### L 500.2500, L100.0500 #### [facility] [address] [place], [address] Hemoglobin (Bld) [Mass/Vol] 12.5 g/dL Low 13.0-16.5 [facility] Comment on above: Order Comment: 313.2 Performed By: #### L 500.2500, L100.0500 #### [facility] [address] [place], [address] MCH (RBC) [Entitic mass] 30.3 pg Normal 27.0-32.0 [facility] Comment on above: Order Comment: 313.2 Performed By: #### L 500.2500, L100.0500 #### [facility] [address] [place], [address] MCHC (RBC) [Mass/Vol] 32.6 g/dL Normal 32-36 [facility] Comment on above: Order Comment: 313.2 Performed By: #### L 500.2500, L100.0500 #### [facility] [address] [place], [address] MCV (RBC) [Entitic vol] 93.0 fL Normal 80-94 [facility] Comment on above: Order Comment: 313.2 Performed By: #### L 500.2500, L100.0500 #### [facility] [address] [place], [address] Platelet mean volume (Bld) [Entitic vol] 10.4 fL Normal 6.2-12.0 [facility] Comment on above: Order Comment: 313.2 Performed By: #### L 500.2500, L100.0500 #### [facility] [address] [place], [address] Platelets (Bld) [#/Vol] 284 10*3/uL Normal 150-450 [facility] Comment on above: Order Comment: 313.2 Performed By: #### L 500.2500, L100.0500 #### [facility] [address] [place], [id number] RBC (Bld) [#/Vol] 4.13 10*6/uL Low 4.6-6.2 [facility] Comment on above: Order Comment: 313.2 Performed By: #### L 500.2500, L100.0500 #### [facility] [address] [place], [address] RDW SD 48.5 fl High 35.1-43.9 [facility] Comment on above: Order Comment: 313.2 Performed By: #### L 500.2500, L100.0500 #### [facility] [address] [place], [address] WBC (Bld) [#/Vol] 7.8 10*3/uL Normal 4.4-11.0 [facility] Comment on above: Order Comment: 313.2 Performed By: #### L 500.2500, L100.0500 #### [facility] [address] [place], [address] Carbon dioxide measurementOr dered By: Tab Dupont on 10-03-2024 CO2 [Moles/Vol] 24.0 mmol/L 21.0-32.0 [facility] Chloride measurementOrdered By: Tab Dupont on 10-03-2024 Chloride [Moles/Vol] 109 mmol/L High 98-107 [facility] Erythrocyte distribution wid th ratioOrdered By: Tab Dupont on 10-03-2024 Erythrocyte distribution width (RBC) [Ratio] 14.0 % 11.6-14.6 [facility] Erythrocyte distribution wid th standard deviationOrdered By: Tab Dupont on 10-03-2024 Erythrocyte distribution width (RBC) [Entitic vol] 48.5 fL High 35.1-43.9 [facility] Estimated glomerular filtrat ion rate (GFR) AmericanOrdered By: Tab Dupont on 10-03-2024 Estimated GFR (MDRD) Amer 229 mL/min >60 [facility] Comment on above: GFR Calc Glomerular filtration rate ( GFR) estimationOrdered By: Tab Dupont on 10-03-2024 Estimated GFR (MDRD) Non-Af Amer 189 mL/min >60 [facility] Comment on above: Non- GFR Calc Glucose measurementOrdered B y: Tab Dupont on 10-03-2024 Glucose [Mass/Vol] 105 mg/dL 74-106 [facility] Comment on above: Fasting Glucose resu lt from 100 to 125 mg/dL suggests IMPAIRED HOMEOSTASIS per A.D.A. criteria. Hematocrit Auto (Bld) [Volum e fraction]Ordered By: Tab Dupont on 10-03-2024 Hematocrit (Bld) [Volume fraction] 38.4 % Low 40-54 [facility] Hemoglobin measurementOrdere d By: Tab Dupont on 10-03-2024 Hemoglobin (Bld) [Mass/Vol] 12.5 g/dL Low 13.0-16.5 [facility] MCV (mean corpuscular volume ) determinationOrdered By: Tab Dupont on 10-03-2024 MCV (RBC) [Entitic vol] 93.0 fL 80-94 [facility] Mean corpuscular hemoglobin (MCH) determinationOrdered By: Tab Dupont on 10-03-2024 MCH (RBC) [Entitic mass] 30.3 pg 27.0-32.0 [facility] Mean corpuscular hemoglobin concentration (MCHC) determinationOrdered By: Tab Dupont on 10-03-2024 MCHC (RBC) [Mass/Vol] 32.6 g/dL 32-36 [facility] Mean platelet volume determi nationOrdered By: Tab Dupont on 10-03-2024 Platelet mean volume (Bld) [Entitic vol] 10.4 fL 6.2-12.0 [facility] Platelet countOrdered By: Vinh Lehman on 10-03-2024 Platelets (Bld) [#/Vol] 284 10*3/uL 150-450 [facility] Potassium measurementOrdered By: Tab Dupont on 10-03-2024 Potassium [Moles/Vol] 3.7 mmol/L 3.5-5.1 [facility] RBC Auto (Bld) [#/Vol]Ordere d By: Tab Dupont on 10-03-2024 RBC (Bld) [#/Vol] 4.13 10*6/uL Low 4.6-6.2 [facility] Serum anion gap measurementO rdered By: Tab Dupont on 10-03-2024 Anion gap [Moles/Vol] 5 mmol/L 5-15 [facility] Serum or plasma calcium randall urement (mass/volume)Ordered By: Tab Dupont on 10-03-2024 Calcium [Mass/Vol] 8.7 mg/dL 8.5-10.1 [facility] Serum or plasma creatinine m easurement (mass/volume)Ordered By: Tab Dupont on 10-03-2024 Creatinine [Mass/Vol] 0.48 mg/dL Low 0.70-1.30 [facility] Comment on above: The validity of the calculated GFR & GFRAA in patients over 70 years has not been determined. Clinical correlation is essential. Serum or plasma urea nitroge n measurement (mass/volume)Ordered By: Tab Dupont on 10-03-2024 Urea nitrogen [Mass/Vol] 7 mg/dL 7-18 [facility] Sodium levelOrdered By: Omar Dupont on 10-03-2024 Sodium [Moles/Vol] 138 mmol/L 136-145 [facility] White blood cell (WBC) count Ordered By: Tab Dupont on 10-03-2024 WBC (Bld) [#/Vol] 7.8 10*3/uL 4.4-11.0 [facility] Patient Instructionson 09-30 Department Chairperson Authentication Interface Message Text Completed UDS. Inserted 18Fr 10cc santana Call to schedule appt with Urology Dr Jorge Patel MD (Surgeon) [address] [place] [address] [place] [address] scan given recurrent blood [...] burning on urination, call the office at [phone] Thursday through Thursday 8:00 AM to 4:30 PM. For emergencies, go the Emergency Room. If you do not already have a follow up appointment scheduled with your physician, call the office at [phone] to schedule one. Normal [facility] Progress Noteson 09-30-2024 Department Chairperson Authentication Interface Message Text SPINAL CORD INJURY [...] p (more content not included)... Normal [facility] C-reactive protein measureme nt by high sensitivity methodOrdered By: Tab Dupont on 09-29-2024 C-Reactive Protein Extended Range 38.30 mg/L High 0.0-3.0 [facility] Comment on above: C-Reactive Protein ( CRP) provides useful information for thediagnosis, therapy and monitoring of inflammatory processesand associated diseases. For the evaluation of Relative Riskfor Cardiovascular Disease, a High Sensitivity CRP (HSCRP)should be ordered. CBC-Complete Blood Cnt No Di ffon 09-29-2024 Erythrocyte distribution width (RBC) [Ratio] 14.4 % Normal 11.6-14.6 [facility] Comment on above: Order Comment: 313.2 Performed By: #### L 501.6710, L101.9900, L100.0500 #### [facility] [address] [place], [address] Hematocrit (Bld) [Volume fraction] 40.3 % Normal 40-54 [facility] Comment on above: Order Comment: 313.2 Performed By: #### L [id number], L101.9900, L100.0500 #### [facility] [address] [place], [address] Hemoglobin (Bld) [Mass/Vol] 13.3 g/dL Normal 13.0-16.5 [facility] Comment on above: Order Comment: 313.2 Performed By: #### L [id number], L101.9900, L100.0500 #### [facility] [address] [place], [address] MCH (RBC) [Entitic mass] 31.4 pg Normal 27.0-32.0 [facility] Comment on above: Order Comment: 313.2 Performed By: #### L [id number], L101.9900, L100.0500 #### [facility] [address] [place] [place], [address] MCHC (RBC) [Mass/Vol] 33.0 g/dL Normal 32-36 [facility] Comment on above: Order Comment: 313.2 Performed By: #### L [id number], L101.9900, L100.0500 #### [facility] [address] [place], [address] MCV (RBC) [Entitic vol] 95.0 fL High 80-94 [facility] Comment on above: Order Comment: 313.2 Performed By: #### L [id number], L101.9900, L100.0500 #### [facility] [address] [place], [address] Platelet mean volume (Bld) [Entitic vol] 10.6 fL Normal 6.2-12.0 [facility] Comment on above: Order Comment: 313.2 Performed By: #### L [id number], L101.9900, L100.0500 #### [facility] [address] [place], [address] Platelets (Bld) [#/Vol] 270 10*3/uL Normal 150-450 [facility] Comment on above: Order Comment: 313.2 Performed By: #### L 501.6710, L101.9900, L100.0500 #### [facility] [address] [place], [address] RBC (Bld) [#/Vol] 4.24 10*6/uL Low 4.6-6.2 [facility] Comment on above: Order Comment: 313.2 Performed By: #### L 501.6710, L101.9900, L100.0500 #### [facility] [address] [place], [address] RDW SD 50.0 fl High 35.1-43.9 [facility] Comment on above: Order Comment: 313.2 Performed By: #### L 501.6710, L101.9900, L100.0500 #### [facility] [address] [place], [address] WBC (Bld) [#/Vol] 8.7 10*3/uL Normal 4.4-11.0 [facility] Comment on above: Order Comment: 313.2 Performed By: #### L 501.6710, L101.9900, L100.0500 #### [facility] [address] [place], [address] CRPon 09-29-2024 C-REACTIVE PROT 38.30 mg/L High 0.0-3.0 [facility] Comment on above: Order Comment: 313.2 Result Comment: C-Re active Protein (CRP) provides useful information for the diagnosis, therapy and monitoring of inflammatory processes and associated diseases. For the evaluation of Relative Risk for Cardiovascular Disease, a High Sensitivity CRP (HSCRP) should be ordered. Performed By: #### L 501.6710, L101.9900, L100.0500 #### [facility] [address] [place], [address] Erythrocyte Sed Rateon 09-29 SED RATE 47 mm/hr High 0-20 [facility] Comment on above: Order Comment: 313.2 Performed By: #### L 501.6710, L101.9900, L100.0500 #### [facility] [address] [place], [address] Erythrocyte distribution wid th ratioOrdered By: Tab Dupont on 09-29-2024 Erythrocyte distribution width (RBC) [Ratio] 14.4 % 11.6-14.6 [facility] Erythrocyte distribution wid th standard deviationOrdered By: Tab Dupont on 09-29-2024 Erythrocyte distribution width (RBC) [Entitic vol] 50.0 fL High 35.1-43.9 [facility] Erythrocyte sedimentation ra teOrdered By: Tab Dupont on 09-29-2024 ESR (Bld) [Velocity] 47 mm/h High 0-20 [facility] Hematocrit Auto (Bld) [Volum e fraction]Ordered By: Tab Dupont on 09-29-2024 Hematocrit (Bld) [Volume fraction] 40.3 % 40-54 [facility] Hemoglobin measurementOrdere d By: Tab Dupont on 09-29-2024 Hemoglobin (Bld) [Mass/Vol] 13.3 g/dL 13.0-16.5 [facility] MCV (mean corpuscular volume ) determinationOrdered By: Tab Dupont on 09-29-2024 MCV (RBC) [Entitic vol] 95.0 fL High 80-94 [facility] Mean corpuscular hemoglobin (MCH) determinationOrdered By: Tab Dupnot on 09-29-2024 MCH (RBC) [Entitic mass] 31.4 pg 27.0-32.0 [facility] Mean corpuscular hemoglobin concentration (MCHC) determinationOrdered By: Tab Dupont on 09-29-2024 MCHC (RBC) [Mass/Vol] 33.0 g/dL 32-36 [facility] Mean platelet volume determi nationOrdered By: Tab Dupont on 09-29-2024 Platelet mean volume (Bld) [Entitic vol] 10.6 fL 6.2-12.0 [facility] Platelet countOrdered By: Vinh Lehman on 09-29-2024 Platelets (Bld) [#/Vol] 270 10*3/uL 150-450 [facility] RBC Auto (Bld) [#/Vol]Ordere d By: Tab Dupont on 09-29-2024 RBC (Bld) [#/Vol] 4.24 10*6/uL Low 4.6-6.2 [facility] White blood cell (WBC) count Ordered By: Tab Dupont on 09-29-2024 WBC (Bld) [#/Vol] 8.7 10*3/uL 4.4-11.0 [facility] Basic Metabolic Profile (BMP )on 09-20-2024 BUN/CRE 26.4 RATIO High 10-20 [facility] Comment on above: Order Comment: 313.2 Performed By: #### L 500.2500 #### [facility] [address] [place], [address] CA,Total 8.2 mg/dL Low 8.5-10.1 [facility] Comment on above: Order Comment: 313.2 Performed By: #### L 500.2500 #### [facility] [address] [place], [address] Chloride [Moles/Vol] 107 mmol/L Normal 98-107 [facility] Comment on above: Order Comment: 313.2 Performed By: #### L 500.2500 #### [facility] [address] [place], [address] CO2 [Moles/Vol] 24.0 mmol/L Normal 21.0-32.0 [facility] Comment on above: Order Comment: 313.2 Performed By: #### L 500.2500 #### [facility] [address] [place], [address] Creatinine [Mass/Vol] 0.61 mg/dL Low 0.70-1.30 [facility] Comment on above: Order Comment: 313.2 Result Comment: The validity of the calculated GFR GFRAA in patients over 70 years has not been determined. Clinical correlation is essential. Performed By: #### L 500.2500 #### [facility] [address] [place], [address] EST GFR - AA 173 mL/min Normal >60 [facility] Comment on above: Order Comment: 313.2 Result Comment: Afri can Uruguayan GFR Calc Performed By: #### L 500.2500 #### [facility] [address] [place], [address] GAP 6 Normal 5-15 [facility] Comment on above: Order Comment: 313.2 Performed By: #### L 500.2500 #### [facility] [address] [place], [address] GFR/1.73 sq M.predicted among non-blacks MDRD (S/P/Bld) [Vol rate/Area] 143 mL/min/{1.73_m2} Normal >60 [facility] Comment on above: Order Comment: 313.2 Result Comment: Non- GFR Calc Performed By: #### L 500.2500 #### [facility] [address] [place], [address] Glucose [Mass/Vol] 134 mg/dL High 74-106 [facility] Comment on above: Order Comment: 313.2 Result Comment: Fast ing Glucose result greater than or equal to 126 mg/dL suggests DIABETES MELLITUS per A.D.A. criteria. Performed By: #### L 500.2500 #### [facility] [address] [place], [address] Potassium [Moles/Vol] 3.3 mmol/L Low 3.5-5.1 [facility] Comment on above: Order Comment: 313.2 Performed By: #### L 500.2500 #### [facility] [address] [place], [address] Sodium [Moles/Vol] 137 mmol/L Normal 136-145 [facility] Comment on above: Order Comment: 313.2 Performed By: #### L 500.2500 #### [facility] [address] [place], [address] Urea nitrogen [Mass/Vol] 16 mg/dL Normal 7-18 [facility] Comment on above: Order Comment: 313.2 Performed By: #### L 500.2500 #### [facility] [address] [place], [address] Blood urea nitrogen (BUN)/cr eatinine ratioOrdered By: Tab Dupont on 09-20-2024 Urea nitrogen/Creatinine [Mass ratio] 26.4 mg/mg High 10-20 [facility] Carbon dioxide measurementOr dered By: Tab Dupont on 09-20-2024 CO2 [Moles/Vol] 24.0 mmol/L 21.0-32.0 [facility] Chloride measurementOrdered By: Tab Dupont on 09-20-2024 Chloride [Moles/Vol] 107 mmol/L 98-107 [facility] Estimated glomerular filtrat ion rate (GFR) AmericanOrdered By: Tab Dupont on 09-20-2024 Estimated GFR (MDRD) Amer 173 mL/min >60 [facility] Comment on above: GFR Calc Glomerular filtration rate ( GFR) estimationOrdered By: Tab Dupont on 09-20-2024 Estimated GFR (MDRD) Non-Af Amer 143 mL/min >60 [facility] Comment on above: Non- GFR Calc Glucose measurementOrdered B y: Tab Dupont on 09-20-2024 Glucose [Mass/Vol] 134 mg/dL High 74-106 [facility] Comment on above: Fasting Glucose resu lt greater than or equal to 126 mg/dL suggests DIABETES MELLITUS per A.D.A. criteria. Potassium measurementOrdered By: Tab Dupont on 09-20-2024 Potassium [Moles/Vol] 3.3 mmol/L Low 3.5-5.1 [facility] Serum anion gap measurementO rdered By: Tab Dupont on 09-20-2024 Anion gap [Moles/Vol] 6 mmol/L 5-15 [facility] Serum or plasma calcium randall urement (mass/volume)Ordered By: Tab Dupont on 09-20-2024 Calcium [Mass/Vol] 8.2 mg/dL Low 8.5-10.1 [facility] Serum or plasma creatinine m easurement (mass/volume)Ordered By: Tab Dupont on 09-20-2024 Creatinine [Mass/Vol] 0.61 mg/dL Low 0.70-1.30 [facility] Comment on above: The validity of the calculated GFR & GFRAA in patients over 70 years has not been determined. Clinical correlation is essential. Serum or plasma urea nitroge n measurement (mass/volume)Ordered By: Tab Dupont on 09-20-2024 Urea nitrogen [Mass/Vol] 16 mg/dL 7-18 [facility] Sodium levelOrdered By: Omar Dupont on 09-20-2024 Sodium [Moles/Vol] 137 mmol/L 136-145 [facility] Progress Noteson 08-22-2024 Department Chairperson Authentication Interface Message Text Rheumatology New visit [...] Resource Strain: Low Risk (04/24/2023) Received from [facility] Overall Financial Resource Strain (CARDIA) Difficulty of Paying Living Expenses: Not hard at all Food Insecurity: No Food Insecurity (05/18/2024) Received from [facility] Hunger Vital Sign Worried About Running Out of Food in the Last Year: Never true Ran Out of Food in the Last Year: Never true Transportation Needs: No Transportation Needs (05/18/2024) Received from [facility] PRAPARE - Transportation Lack of Transportation (Medical): No Lack of Transportation (Non-Medical): No Intimate Partner Violence: Not At Risk (05/18/2024) Received from [facility] Humiliation, Afraid, Rape, and Kick questionnaire Fear [...] - (more content not included)... Normal [facility] Telephone Encounteron 2023 Department Chairperson YOOWALKation Interface Message Text Spoke with Doug at Care Facility where pt resides and given the date and time of SYSTEM SAFETY ENGINEER video visit with Dr. Shultz at 8:20 am on 08/22/24. This information will be relayed to pt. Normal [facility] Addendum Noteon 08-01-2024 Department Chairperson Authentication Interface Message Text Addended by: FAISAL SIMEON on: 08/01/2024 02:57 PM Modules accepted: Level of Service Normal [facility] Patient Instructionson 08-01 Department Chairperson Authentication Interface Message Text -Continue PT/OT -Please follow your appoitment with pain team and rheumatology -You are scheduled for bladder study on 09/30/24 -continue scheduled bowel care daily Normal [facility] Progress Noteson 07-31-2024 Department Chairperson Authentication Interface Message Text Documentation: Mode: Video [...] following spinal surgery ~2 yrs ago in [place] . In 2019, pt had his first back surgery performed by [facility] which was an interbody fusion. 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 At that point, the hospital took the hardware out and did not replace it with the goal of treating the infection. 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 After the infection was treated, [facility] extended his fusion, decompressed the back, and replaced all hardware. At that time he lost all motor and sensation to his lower extremities. He was independent uptill december 2021 till his last spine surgery two year ago.Since 2021 he is in half-way and he changes 5 half-way so far. Currently SNF in [facility]. Last seen on 06/13/24 in clinic and recommendations was: -Continue PT/OT -Bowel care: schedule bowel care once/day (either after breakfast or dinner) - using suppository and manual stimulation over commode chair will be more helpful than over bed . - Continue skin care - Follow [facility] service consult( we requested today ) [...] healing- being followed with wound care at half-way. -Continued PT/OT in half-way -Spine team see him after MRI spine [...] to display Other SOCIAL Home situation: NA NORMALIZER/RN: Currently in prison - [employer] [facility] DME: Power wheelchair, manual wheelchair Income/BWC: Social [...] sev (more content not included)... Normal [facility] MR C-SPINE W/Oon 07-11-2024 MR C-SPINE [...] the right cerebellum. 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 MACRO: None [facility] W/Oon 07-11-2024 MR T-SPINE W/O [...] T5 and T2. MACRO: None Normal [facility] MR Thoracic spine WO contras ton [...] of T11, T5 and T2. MACRO: None [facility] MR Thoracic spine WO contras tOrdered By: Del Leslie on 07-11-2024 [facility] Work Phone: No Panel Informationon 07-10 Radiology Study observation (narrative) [facility] Basic Metabolic Profile (BMP )on 07-04-2024 BUN/CRE 18.2 RATIO Normal 07-24 [facility] Comment on above: Order Comment: 313.2 Performed By: #### L 500.2500, L100.0500 #### [facility] [address] [place], [address] CA,Total 8.6 mg/dL Normal 8.5-10.1 [facility] Comment on above: Order Comment: 313.2 Performed By: #### L 500.2500, L100.0500 #### [facility] [address] [place], [address] Chloride [Moles/Vol] 108 mmol/L High 98-107 [facility] Comment on above: Order Comment: 313.2 Performed By: #### L 500.2500, L100.0500 #### [facility] [address] [place], [address] CO2 [Moles/Vol] 25.0 mmol/L Normal 21.0-32.0 [facility] Comment on above: Order Comment: 313.2 Performed By: #### L 500.2500, L100.0500 #### [facility] [address] [place], [address] Creatinine [Mass/Vol] 0.50 mg/dL Low 0.70-1.30 [facility] Comment on above: Order Comment: 313.2 Result Comment: The validity of the calculated GFR GFRAA in patients over 70 years has not been determined. Clinical correlation is essential. Performed By: #### L 500.2500, L100.0500 #### [facility] [address] [place], [address] EST GFR - AA 219 mL/min Normal >60 [facility] Comment on above: Order Comment: 313.2 Result Comment: Afri can [place]rugu[place] GFR Calc Performed By: #### L 500.2500, L100.0500 #### [facility] [address] [place], [address] GAP 7 Normal 5-15 [facility] Comment on above: Order Comment: 313.2 Performed By: #### L 500.2500, L100.0500 #### [facility] [address] [place], [address] GFR/1.73 sq M.predicted among non-blacks MDRD (S/P/Bld) [Vol rate/Area] 181 mL/min/{1.73_m2} Normal >60 [facility] Comment on above: Order Comment: 313.2 Result Comment: Non- GFR Calc Performed By: #### L 500.2500, L100.0500 #### [facility] [address] [place], [address] Glucose [Mass/Vol] 86 mg/dL Normal 74-106 [facility] Comment on above: Order Comment: 313.2 Performed By: #### L 500.2500, L100.0500 #### [facility] [address] [place], [address] Potassium [Moles/Vol] 3.8 mmol/L Normal 3.5-5.1 [facility] Comment on above: Order Comment: 313.2 Performed By: #### L 500.2500, L100.0500 #### [facility] [address] [place], [address] Sodium [Moles/Vol] 140 mmol/L Normal 136-145 [facility] Comment on above: Order Comment: 313.2 Performed By: #### L 500.2500, L100.0500 #### [facility] [address] [place], [address] Urea nitrogen [Mass/Vol] 9 mg/dL Normal 7-18 [facility] Comment on above: Order Comment: 313.2 Performed By: #### L 500.2500, L100.0500 #### [facility] [address] [place], [address] CBC-Complete Blood Cnt No Di ffon 07-04-2024 Erythrocyte distribution width (RBC) [Ratio] 14.8 % High 11.6-14.6 [facility] Comment on above: Order Comment: 313.2 Performed By: #### L 500.2500, L100.0500 #### [facility] [address] [place], [address] Hematocrit (Bld) [Volume fraction] 39.4 % Low 40-54 [facility] Comment on above: Order Comment: 313.2 Performed By: #### L 500.2500, L100.0500 #### [facility] [address] [place], [address] Hemoglobin (Bld) [Mass/Vol] 12.7 g/dL Low 13.0-16.5 [facility] Comment on above: Order Comment: 313.2 Performed By: #### L 500.2500, L100.0500 #### [facility] [address] [place], [address] MCH (RBC) [Entitic mass] 30.3 pg Normal 27.0-32.0 [facility] Comment on above: Order Comment: 313.2 Performed By: #### L 500.2500, L100.0500 #### [facility] [address] [place], [address] MCHC (RBC) [Mass/Vol] 32.2 g/dL Normal 32-36 [facility] Comment on above: Order Comment: 313.2 Performed By: #### L 500.2500, L100.0500 #### [facility] [address] [place], [address] MCV (RBC) [Entitic vol] 94.0 fL Normal 80-94 [facility] Comment on above: Order Comment: 313.2 Performed By: #### L 500.2500, L100.0500 #### [facility] [address] [place], [address] Platelet mean volume (Bld) [Entitic vol] 11.0 fL Normal 6.2-12.0 [facility] Comment on above: Order Comment: 313.2 Performed By: #### L 500.2500, L100.0500 #### [facility] [address] [place], [address] Platelets (Bld) [#/Vol] 260 10*3/uL Normal 150-450 [facility] Comment on above: Order Comment: 313.2 Performed By: #### L 500.2500, L100.0500 #### [facility] [address] [place], [address] RBC (Bld) [#/Vol] 4.19 10*6/uL Low 4.6-6.2 [facility] Comment on above: Order Comment: 313.2 Performed By: #### L 500.2500, L100.0500 #### [facility] [address] [place], [address] RDW SD 51.5 fl High 35.1-43.9 [facility] Comment on above: Order Comment: 313.2 Performed By: #### L 500.2500, L100.0500 #### [facility] [address] [place], [address] WBC (Bld) [#/Vol] 7.4 10*3/uL Normal 4.4-11.0 [facility] Comment on above: Order Comment: 313.2 Performed By: #### L 500.2500, L100.0500 #### [facility] [address] [place], [address] BD BONE DENSITY SURVEYon BD BONE DENSITY SURVEY EXAMINATION: BD B ONE DENSITY SURVEY 07/01/2024 11:31 AM CLINICAL HISTORY: sacral insufficiency ASSOCIATED DIAGNOSIS: Sacral insufficiency fracture, initial encounter ADDITIONAL CLINICAL INFORMATION:Indicatio ns: History of Fracture (Adult) TREATMENTS: ORDERING PROVIDER: OTIS MEJIA TECHNOLOGISTS NOTE: TECHNIQUE: Quantitative digital radiography for DEXA bone mineral assessment was performed using the Bluespec densitometer. Following are the results for your [...] online ([email or web address].[email or web address] via a link on the EPIC snapshot screen. The model calculates the 10-yr probability of hip fracture or any major osteoporotic fracture (vertebral, hip, forearm, or humerus fracture), using clinical populations, and applies only to previously-untreated patients. (FRAX-friendly) T-scores, as calculated using the EPIC link, should be used in the model. [...] below the expected range for age. Normal [facility] Urine Cultureon 06-17-2024 [facility] Pseudomonas aeruginosa [place] Count 80,000-100,000 Pseudomonas aeruginosa: REACTION Cefepime Islt HARINDER 2 S Ciprofloxacin Islt HARINDER 1 S Imipenem Islt HARINDER 1 S levoFLOXacin Islt HARINDER 4 I Pip+Tazo Islt HARINDER <=4 S Tobramycin Islt HARINDER 2 S Normal [facility] Comment on above: Performed By: #### L 500.2500, L100.0500 #### [facility] [address] [place], [address] 36on 06-16-2024 36 Scheduled appointment Normal [facility] 36 Doug is calling in again wanting to rescheduled they can be reached at the office anytime before 3pm. Please advise and thank you [facility] Addendum Noteon 06-16-2024 Department Chairperson Authentication Interface Message Text Addended by: FAISAL SIMEON on: 06/16/2024 09:13 PM Modules accepted: Level of Service Normal [facility] 36on 06-15-2024 36 LM for Doug to call the office to discuss the pt [facility] 36 Name of caller: Dax banks Contact phone number: [phone] Relationship to Patient: sanctuary Provider: chepe Practice: pain management Chief Complaint/Reason for Call: doug is calling in wanting to speak to the main office. Please advise and thank you Best time of day caller can be reached: any Patient advised that office/PCP has 24-48 business hours to return their call: Yes [facility] Urinalysis, Completeon 06-15 RBC 25-50 SEEN Normal 0-5 [facility] Comment on above: Order Comment: 313-2 Performed By: #### L 100.0500, L500.2500 #### [facility] [address] [place], [address] BACTERIA 2+ /hpf Normal None Seen [facility] Comment on above: Order Comment: 313-2 Performed By: #### L 100.0500, L500.2500 #### [facility] [address] [place], [address] WBC 25-50 SEEN Normal 0-5 [facility] Comment on above: Order Comment: 313-2 Performed By: #### L 100.0500, L500.2500 #### [facility] [address] [place], [address] EPI,SQUAMOUS 0 SEEN Normal 0-5 [facility] Comment on above: Order Comment: 313-2 Performed By: #### L 100.0500, L500.2500 #### [facility] [address] [place], [address] Mucus Ql (Urine sed) 0 SEEN Normal [facility] Comment on above: Order Comment: 313-2 Performed By: #### L 100.0500, L500.2500 #### [facility] [address] [place], [place], [address] Telephone Encounteron 2023 Department Chairperson Authentication Interface Message Text RTC to pt, left voice mail. Vladimir Asher [facility] Graphic Technician [phone] Normal [facility] Patient Instructionson 06-13 Department Chairperson Authentication Interface Message Text -Continue PT/OT -Bowel care: schedule bowel care once/day (either after breakfast or dinner) - using suppository and manual stimulation over commode chair will be more helpful than over bed . - Continue skin care - Follow [facility] service consult( we requested today ) for benefits eligibility - Bladder: We ordered today Urodynamic study for your bladder evaluation (to see your bladder status post spinal cord injury) Normal [facility] Progress Noteson 06-13-2024 Department Chairperson Authentication Interface Message Text Patient was identified by name and date of . Evelio Grey Normal [facility] Progress Noteson 06-12-2024 Department Chairperson Authentication Interface Message Text SPINAL CORD INJURY [...] following spinal surgery ~2 yrs ago in [place] . In 2019, pt had his first back surgery performed by [facility] which was an interbody fusion. 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 At that point, the hospital took the hardware out and did not replace it with the goal of treating the infection. 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 After the infection was treated, [facility] extended his fusion, decompressed the back, and replaced all hardware. At that time he lost all motor and sensation to his lower extremities. He was independent uptill december 2021 till his last spine surgery two year ago Patient was accompanied by brother . The patient gave permission to discuss their medical information, including PHI, in their presence. Since 2021 he is in half-way and he changes 5 half-way so far. Currently SNF in [facility]. He has Ureter stent - recently at [facility] Medication, PMHx/PSHx, Fam Hx, Allergy, Problem List, [...] to display Other SOCIAL Home situation: NA NORMALIZER/RN: Currently in prison - [place] [facility] DME: Power wheelchair, manual wheelchair Income/BWC: Social [...] 01/23/2022 (more content not included)... Normal [facility] CBC-Complete Blood Cnt No Di ffon 05-30-2024 Erythrocyte distribution width (RBC) [Ratio] 15.4 % High 11.6-14.6 [facility] Comment on above: Order Comment: 313.2 Performed By: #### L 500.2500, L100.0500 #### [facility] [address] [place], [address] Hematocrit (Bld) [Volume fraction] 36.7 % Low 40-54 [facility] Comment on above: Order Comment: 313.2 Performed By: #### L 500.2500, L100.0500 #### [facility] [address] [place], [address] Hemoglobin (Bld) [Mass/Vol] 12.0 g/dL Low 13.0-16.5 [facility] Comment on above: Order Comment: 313.2 Performed By: #### L 500.2500, L100.0500 #### [facility] [address] [place], [address] MCH (RBC) [Entitic mass] 30.5 pg Normal 27.0-32.0 [facility] Comment on above: Order Comment: 313.2 Performed By: #### L 500.2500, L100.0500 #### [facility] [address] [place], [address] MCHC (RBC) [Mass/Vol] 32.7 g/dL Normal 32-36 [facility] Comment on above: Order Comment: 313.2 Performed By: #### L 500.2500, L100.0500 #### [facility] [address] [place], [address] MCV (RBC) [Entitic vol] 93.1 fL Normal 80-94 [facility] Comment on above: Order Comment: 313.2 Performed By: #### L 500.2500, L100.0500 #### [facility] [address] [place], [address] Platelet mean volume (Bld) [Entitic vol] 11.1 fL Normal 6.2-12.0 [facility] Comment on above: Order Comment: 313.2 Performed By: #### L 500.2500, L100.0500 #### [facility] [address] [place], [address] Platelets (Bld) [#/Vol] 219 10*3/uL Normal 150-450 [facility] Comment on above: Order Comment: 313.2 Performed By: #### L 500.2500, L100.0500 #### [facility] [address] [place], [address] RBC (Bld) [#/Vol] 3.94 10*6/uL Low 4.6-6.2 [facility] Comment on above: Order Comment: 313.2 Performed By: #### L 500.2500, L100.0500 #### [facility] [address] [place], [address] RDW SD 53.4 fl High 35.1-43.9 [facility] Comment on above: Order Comment: 313.2 Performed By: #### L 500.2500, L100.0500 #### [facility] [address] [place], [address] WBC (Bld) [#/Vol] 5.9 10*3/uL Normal 4.4-11.0 [facility] Comment on above: Order Comment: 313.2 Performed By: #### L 500.2500, L100.0500 #### [facility] [address] [place], [address] Comprehensive Metabolic Prof ilon 05-30-2024 Albumin [Mass/Vol] 2.6 g/dL Low 3.2-5.0 [facility] Comment on above: Order Comment: 313.2 Performed By: #### L 500.2500, L100.0500 #### [facility] [address] [place], [address] Albumin/Globulin [Mass ratio] 0.6 {ratio} Low 0.9-2.4 [facility] Comment on above: Order Comment: 313.2 Performed By: #### L 500.2500, L100.0500 #### [facility] [address] [place], [address] ALK P 178 U/L High 45-117 [facility] Comment on above: Order Comment: 313.2 Performed By: #### L 500.2500, L100.0500 #### [facility] [address] [place], [address] ALT [Catalytic activity/Vol] 24 U/L Normal 16-61 [facility] Comment on above: Order Comment: 313.2 Performed By: #### L 500.2500, L100.0500 #### [facility] [address] [place], [address] AST [Catalytic activity/Vol] 19 U/L Normal 15-37 [facility] Comment on above: Order Comment: 313.2 Performed By: #### L 500.2500, L100.0500 #### [facility] [address] [place], [address] Bilirubin [Mass/Vol] 0.60 mg/dL Normal 0.20-1.00 [facility] Comment on above: Order Comment: 313.2 Result Comment: For patients on eltrombopag therapy, use of Dimension [place] TBIL is not recommended. Performed By: #### L 500.2500, L100.0500 #### [facility] [address] [place], [address] BUN/CRE 15.9 RATIO Normal 10-20 [facility] Comment on above: Order Comment: 313.2 Performed By: #### L 500.2500, L100.0500 #### [facility] [address] [place], [address] CA,Total 8.6 mg/dL Normal 8.5-10.1 [facility] Comment on above: Order Comment: 313.2 Performed By: #### L 500.2500, L100.0500 #### [facility] [address] [place], [address] Chloride [Moles/Vol] 108 mmol/L High 98-107 [facility] Comment on above: Order Comment: 313.2 Performed By: #### L 500.2500, L100.0500 #### [facility] [address] [place], [address] CO2 [Moles/Vol] 23.0 mmol/L Normal 21.0-32.0 [facility] Comment on above: Order Comment: 313.2 Performed By: #### L 500.2500, L100.0500 #### [facility] [address] [place], [address] Creatinine [Mass/Vol] 0.50 mg/dL Low 0.70-1.30 [facility] Comment on above: Order Comment: 313.2 Result Comment: The validity of the calculated GFR GFRAA in patients over 70 years has not been determined. Clinical correlation is essential. Performed By: #### L 500.2500, L100.0500 #### [facility] [address] [place], [address] EST GFR - AA 214 mL/min Normal >60 [facility] Comment on above: Order Comment: 313.2 Result Comment: Afri can [place] GFR Calc Performed By: #### L 500.2500, L100.0500 #### [facility] [address] [place], [address] GAP 6 Normal 5-15 [facility] Comment on above: Order Comment: 313.2 Performed By: #### L 500.2500, L100.0500 #### [facility] [address] [place], [address] GFR/1.73 sq M.predicted among non-blacks MDRD (S/P/Bld) [Vol rate/Area] 177 mL/min/{1.73_m2} Normal >60 [facility] Comment on above: Order Comment: 313.2 Result Comment: Non- GFR Calc Performed By: #### L 500.2500, L100.0500 #### [facility] [address] [place], [address] Globulin (S) [Mass/Vol] 4.2 g/dL Normal 2.2-4.2 [facility] Comment on above: Order Comment: 313.2 Performed By: #### L 500.2500, L100.0500 #### [facility] [address] [place], [address] Glucose [Mass/Vol] 185 mg/dL High 74-106 [facility] Comment on above: Order Comment: 313.2 Result Comment: Fast ing Glucose result greater than or equal to 126 mg/dL suggests DIABETES MELLITUS per A.D.A. criteria. Performed By: #### L 500.2500, L100.0500 #### [facility] [address] [place], [address] Potassium [Moles/Vol] 3.8 mmol/L Normal 3.5-5.1 [facility] Comment on above: Order Comment: 313.2 Performed By: #### L 500.2500, L100.0500 #### [facility] [address] [place], [address] Sodium [Moles/Vol] 137 mmol/L Normal 136-145 [facility] Comment on above: Order Comment: 313.2 Performed By: #### L 500.2500, L100.0500 #### [facility] [address] [place], [address] T PROT 6.8 g/dL Normal 6.4-8.2 [facility] Comment on above: Order Comment: 313.2 Performed By: #### L 500.2500, L100.0500 #### [facility] [address] [place], [address] Urea nitrogen [Mass/Vol] 8 mg/dL Normal 7-18 [facility] Comment on above: Order Comment: 313.2 Performed By: #### L 500.2500, L100.0500 #### [facility] [address] [place], [address] Culture, Blood (WB)on 2023 CUB 313-2 SEND RESULTS TO [facility] INFECTIOUS [facility] FAX [phone]. GRAM STAIN = GRAM POSITIVE COCCI IN CLUSTERS Culture, Blood (WB) RESULTS CALLED TO BIRDIE 05/17/24 1151 Yasemin López. REPORT READ BACK BY SAME. Culture, [...] Culture, Blood (WB) [facility]. ORIGINAL REPORT ON FILE IN LAB CONTAINS [...] HARINDER S Vancomycin Islt HARINDER S Normal [facility] Comment on above: Performed By: #### L 500.2500, L100.0500 #### [facility] [address] [place], [address] Bacteria identified Cx Nom ( Bld)on 05-22-2024 Interpretation and review of laboratory results [facility] Blood Collection Site: Left Arm [facility] Blood Collection Site: Left Antecubital [facility] CARECOORDon 05-22-2024 CARECOORD Called Carlos Flower's dispatch, new ETA is around 1900. [facility] CARECOORD CARE COORDINATION DAILY NOTE/UPDATE Discharge Plan: [facility] This TCC was tasked to follow this patient through the weekend assisting with discharge planning. Chart was reviewed. Met with patient at bedside to confirm if he would like to return to [facility]. Patient agreeable to return. Messaged attending and infectious disease to see if patient is able to discharge today. Discharge order placed. Scheduled discharge transportation in [employer], product picker time confirmed for 8/18 at 1600. Bedside nurse notified of transport and will update patient and family of plan Facility notified of transportation time and discharge documents including After Visit Summary, MAR, LABS, and Vitals were uploaded into [employer] for review. Normal [facility] CBC (HEMOGRAM)on 05-22-2024 Erythrocyte distribution width (RBC) [Ratio] 15.1 % High 11.5-15.0 [facility] Comment on above: Performed By: #### L AB294 #### Reservations Agent: BIANCA NICHOLS ([id number]) [facility]) [address] [place] [address] Hematocrit (Bld) [Volume fraction] 38.4 % Low 40.0-52.0 [facility] Comment on above: Performed By: #### L AB294 #### Reservations Agent: BIANCA NICHOLS ([id number]) [facility]) [address] [place] [address] Hemoglobin (Bld) [Mass/Vol] 12.8 g/dL Low 13.0-18.0 [facility] Comment on above: Performed By: #### L AB294 #### Reservations Agent: BIANCA NICHOLS ([id number]) [facility]) [address] [place] [address] MCH (RBC) [Entitic mass] 30.4 pg Normal 26.0-34.0 [facility] Comment on above: Performed By: #### L AB294 #### Reservations Agent: BIANCA NICHOLS ([phone]) [facility]) [address] [place] [address] MCHC 33.3 % Normal 30.5-36.0 [facility] Comment on above: Performed By: #### L AB294 #### Reservations Agent: BIANCA NICHOLS ([id number]) [facility]) [address] [place] [address] MCV (RBC) [Entitic vol] 91.2 fL Normal 77.0-99.0 [facility] Comment on above: Performed By: #### L AB294 #### Reservations Agent: BIANCA NICHOLS ([phone]) [facility] ([facility]) [address] [place] [address] Platelet mean volume (Bld) [Entitic vol] 10.6 fL Normal 9.0-12.7 [facility] Comment on above: Performed By: #### L AB294 #### Reservations Agent: BIANCA NICHOLS ([id number]) [facility] ([facility]) [address] [place] [address] Platelets (Bld) [#/Vol] 209 10*3/uL Normal 140-440 [facility] Comment on above: Performed By: #### L AB294 #### Reservations Agent: BIANCA NICHOLS ([id number]) [facility] ([facility]) [address] [place] [address] RBC (Bld) [#/Vol] 4.21 10*6/uL Low 4.40-5.90 [facility] Comment on above: Performed By: #### L AB294 #### Reservations Agent: BIANCA NICHOLS ([id number]) [facility] ([facility]) [address] [place] [address] WBC (Bld) [#/Vol] 6.4 10*3/uL Normal 3.6-10.7 [facility] Comment on above: Performed By: #### L AB294 #### Reservations Agent: BIANCA NICHOLS ([id number]) [facility] ([facility]) [address] [place] [address] CBC panel Auto (Bld)on 05-22 Erythrocyte distribution width (RBC) [Ratio] 15.1 % High 11.5 - 15.0 % [facility] Hematocrit (Bld) [Volume fraction] 38.4 % Low 40.0 - 52.0 % [facility] Hemoglobin (Bld) [Mass/Vol] 12.8 g/dL Low 13.0 - 18.0 g/dL [facility] Interpretation and review of laboratory results Abnormal [facility] MCH (RBC) [Entitic mass] 30.4 pg 26. 0 - 34.0 pg [facility] MCHC (RBC) [Mass/Vol] 33.3 % 30.5 - 36.0 % [facility] MCV (RBC) [Entitic vol] 91.2 fL 77.0 - 99.0 fL [facility] Platelet mean volume (Bld) [Entitic vol] 10.6 fL 9.0 - 12.7 fL [facility] Platelets (Bld) [#/Vol] 209 10*3/uL 140 - 440 10*3/uL [facility] RBC (Bld) [#/Vol] 4.21 10*6/uL Low 4.40 - 5.9 0 10*6/uL [facility] WBC (Bld) [#/Vol] 6.4 10*3/uL 3.6 - 10.7 10*3/uL [facility] COMPREHENSIVE METABOLIC PANE Antonio 05-22-2024 Albumin [Mass/Vol] 3.1 g/dL Low 3.5-5.0 [facility] Comment on above: Performed By: #### L AB233 #### Reservations Agent: BIANCA NICHOLS ([phone]) [facility] ([facility]) [address] [place] [address] ALP [Catalytic activity/Vol] 151 U/L High 38-126 [facility] Comment on above: Performed By: #### L AB233 #### Reservations Agent: BIANCA NICHOLS ([phone]) [facility] ([facility]) [address] [place] [address] ALT [Catalytic activity/Vol] 22 U/L Normal 0-49 [facility] Comment on above: Performed By: #### L AB233 #### Reservations Agent: BIANCA NICHOLS ([id number]) [facility] ([facility]) [address] [place] [address] Anion gap [Moles/Vol] 5 mmol/L Normal 3-13 [facility] Comment on above: Performed By: #### L AB233 #### Reservations Agent: BIANCA NICHOLS ([id number]) [facility] ([facility]) [address] [place] [address] AST [Catalytic activity/Vol] 25 U/L Normal 15-46 [facility] Comment on above: Performed By: #### L AB233 #### Reservations Agent: BIANCA NICHOLS ([id number]) [facility]) [address] [place] [address] Bilirubin [Mass/Vol] 0.6 mg/dL Normal 0.2-1.3 [facility] Comment on above: Performed By: #### L AB233 #### Reservations Agent: BIANCA NICHOLS ([id number]) [facility]) [address] [place] [address] Calcium [Mass/Vol] 8.4 mg/dL Normal 8.4-10.4 [facility] Comment on above: Performed By: #### L AB233 #### Reservations Agent: BIANCA NICHOLS ([phone]) [facility]) [address] [place] [address] Chloride [Moles/Vol] 107 mmol/L Normal 98-107 [facility] Comment on above: Performed By: #### L AB233 #### Reservations Agent: BIANCA NICHOLS ([phone]) [facility] ([facility]) [address] [place] [address] CO2 [Moles/Vol] 22 mmol/L Normal 22-30 [facility] Comment on above: Performed By: #### L AB233 #### Reservations Agent: BIANCA NICHOLS ([phone]) [facility]) [address] [place] [address] Creatinine [Mass/Vol] 0.54 mg/dL Low 0.66-1.25 [facility] Comment on above: Performed By: #### L AB233 #### Reservations Agent: BIANCA NICHOLS ([phone]) [facility]) [address] [place] [address] GLOMERULAR FILTRATION RATE ML/MIN/1.73 SQ M.PREDICTED >90.0 Normal >60.0 [facility] Comment on above: Result Comment: Calc ulation based on the Chronic Kidney Disease Epidemiology Collaboration (CKD-EPI) equation refit without adjustment for race Performed By: #### L AB233 #### Reservations Agent: BIANCA NICHOLS ([id number]) [facility] [address] [place] [address] [place] Glucose [Mass/Vol] 144 mg/dL High 70-100 [facility] Comment on above: Performed By: #### L AB233 #### Reservations Agent: BIANCA NICHOLS ([phone]) [facility] [address] [place] [address] Potassium [Moles/Vol] 3.9 mmol/L Normal 3.5-5.1 [facility] Comment on above: Performed By: #### L [id number] #### Reservations Agent: BIANCA NICHOLS ([id number]) [facility] ([facility]) [address] [place] [address] Protein [Mass/Vol] 6.3 g/dL Normal 6.3-8.2 [facility] Comment on above: Performed By: #### L [id number] #### Reservations Agent: BIANCA NICHOLS ([phone]) [facility] [address] [place] [address] Sodium [Moles/Vol] 135 mmol/L Normal 135-145 [facility] Comment on above: Performed By: #### L [id number] #### Reservations Agent: BIANCA NICHOLS ([phone]) [facility] ([facility]) [address] [place] [address] Urea nitrogen [Mass/Vol] 13 mg/dL Normal 9-20 [facility] Comment on above: Performed By: #### L [id number] #### Reservations Agent: BIANCA NICHOLS ([phone]) [facility] [address] [place] [address] Comprehensive metabolic 1998 panelon 05-22-2024 Albumin [Mass/Vol] 3.1 g/dL Low 3.5 - 5.0 g/dL [facility] ALP [Catalytic activity/Vol] 151 U/L High 38 - 126 U/L [facility] ALT [Catalytic activity/Vol] 22 U/L 0 - 49 U/L [facility] Anion gap [Moles/Vol] 5 mmol/L 3 - 13 mmol/L [facility] AST [Catalytic activity/Vol] 25 U/L 15 - 46 U/L [facility] Bilirubin [Mass/Vol] 0.6 mg/dL 0.2 - 1 .3 mg/dL [facility] Calcium [Mass/Vol] 8.4 mg/dL 8.4 - 10. 4 mg/dL [facility] Chloride [Moles/Vol] 107 mmol/L 98 - 10 7 mmol/L [facility] CO2 [Moles/Vol] 22 mmol/L 22 - 30 mmol/L [facility] Creatinine [Mass/Vol] 0.54 mg/dL Low 0.66 - 1.25 mg/dL [facility] GFR/1.73 sq M.predicted (S/P/Bld) [Vol rate/Area] - PINF [facility] Comment on above: Calculation based on the Chronic Kidney Disease Epidemiology Collaboration (CKD-EPI) equation refit without adjustment for race Glucose [Mass/Vol] 144 mg/dL High 70 - 100 mg/dL [facility] Interpretation and review of laboratory results Abnormal [facility] Potassium [Moles/Vol] 3.9 mmol/L 3.5 - 5.1 mmol/L [facility] Protein [Mass/Vol] 6.3 g/dL 6.3 - 8.2 g/dL [facility] Sodium [Moles/Vol] 135 mmol/L 135 - 145 mmol/L [facility] Urea nitrogen [Mass/Vol] 13 mg/dL 9 - 20 mg/dL [facility] IDNon 05-22-2024 IDN Problem: Knowledge [...] Nutritional Intake Outcome: Adequate for Discharge Normal [facility] Laboratory - Chemistry and C hemistry - challengeon 05-22-2024 Glucose [Mass/Vol] 177 mg/dL High 70 - 100 mg/dL [facility] Glucose [Mass/Vol] 325 mg/dL High 70 - 100 mg/dL [facility] Glucose [Mass/Vol] 133 mg/dL High 70 - 100 mg/dL [facility] Laboratory - Microbiology an d Antimicrobial susceptibilityon 05-22-2024 Bacteria identified Cx Nom (Bld) No growth at 5 days [facility] No Panel Informationon 05-22 Interpretation and review of laboratory results Abnormal [facility] Performed by: [facility], [address] [place] [address] CLIA ID: [id number] [facility] Interpretation and review of laboratory results Abnormal [facility] Performed by: [facility], [address] [place] [address] CLIA ID: [id number] [facility] Interpretation and review of laboratory results Abnormal [facility] Performed by: [facility], [address] [place] [address] CLIA ID: [id number] [facility] Nursing Noteon 05-22-2024 Nursing Note Transport arranged for 1600. Belongings packed and paperwork finished. Carlos Montelongo update: 45 minutes. Elly Cormier RN Normal [facility] Nursing Note Santana catheter leaking since last night. Dr. Mahajan paged via secure chat. Catheter to be replaced. Patient informed me that they use a 18 dutch santana at the half-way. A 16 dutch was previously in. Urology cart was ordered, and a 18 dutch santana was placed with 500 mL output. Larger balloon, filled with 25 mL. No leaking. Will continue to monitor. Elly Cormier RN Normal [facility] CBC (HEMOGRAM)on 05-21-2024 Erythrocyte distribution width (RBC) [Ratio] 15.0 % Normal 11.5-15.0 [facility] Comment on above: Performed By: #### L [id number] ####Reservations Agent: BIANCA NICHOLS ([phone])[facility])[address] [place] [address] Hematocrit (Bld) [Volume fraction] 37.5 % Low 40.0-52.0 [facility] Comment on above: Performed By: #### L [id number] ####Reservations Agent: BIANCA NICHOLS ([phone])[facility])[address] [place] [address] Hemoglobin (Bld) [Mass/Vol] 12.4 g/dL Low 13.0-18.0 [facility] Comment on above: Performed By: #### L [id number] ####Reservations Agent: BIANCA NICHOLS ([phone])[address] MCH (RBC) [Entitic mass] 30.7 pg Normal 26.0-34.0 [facility] Comment on above: Performed By: #### L [id number] ####Reservations Agent: BIANCA NICHOLS ([phone])[facility])[address] [place] [address] MCHC 33.1 % Normal 30.5-36.0 [facility] Comment on above: Performed By: #### L [id number] ####Reservations Agent: BIANCA NICHOLS ([phone])[facility])[address] [place] [address] MCV (RBC) [Entitic vol] 92.8 fL Normal 77.0-99.0 [facility] Comment on above: Performed By: #### L [id number] ####Reservations Agent: BIANCA NICHOLS ([phone])[address] Platelet mean volume (Bld) [Entitic vol] 10.4 fL Normal 9.0-12.7 [facility] Comment on above: Performed By: #### L [id number] ####Reservations Agent: BIANCA NICHOLS ([phone])[facility] ([facility])[address] [place] [address] Platelets (Bld) [#/Vol] 192 10*3/uL Normal 140-440 [facility] Comment on above: Performed By: #### L [id number] ####Reservations Agent: BIANCA NICHOLS ([id number])[facility])[address] [place] [address] RBC (Bld) [#/Vol] 4.04 10*6/uL Low 4.40-5.90 [facility] Comment on above: Performed By: #### L [id number] ####Reservations Agent: BIANCA NICHOLS ([phone])[facility])[address] [place] [address] WBC (Bld) [#/Vol] 5.8 10*3/uL Normal 3.6-10.7 [facility] Comment on above: Performed By: #### L [id number] ####Reservations Agent: BIANCA NICHOLS ([id number])[facility] ([facility])[address] [place] [address] CBC panel Auto (Bld)on 05-21 Erythrocyte distribution width (RBC) [Ratio] 15.0 % 11.5 - 15.0 % [facility] Hematocrit (Bld) [Volume fraction] 37.5 % Low 40.0 - 52.0 % [facility] Hemoglobin (Bld) [Mass/Vol] 12.4 g/dL Low 13.0 - 18.0 g/dL [facility] Interpretation and review of laboratory results Abnormal [facility] MCH (RBC) [Entitic mass] 30.7 pg 26. 0 - 34.0 pg [facility] MCHC (RBC) [Mass/Vol] 33.1 % 30.5 - 36.0 % [facility] MCV (RBC) [Entitic vol] 92.8 fL 77.0 - 99.0 fL [facility] Platelet mean volume (Bld) [Entitic vol] 10.4 fL 9.0 - 12.7 fL [facility] Platelets (Bld) [#/Vol] 192 10*3/uL 140 - 440 10*3/uL [facility] RBC (Bld) [#/Vol] 4.04 10*6/uL Low 4.40 - 5.9 0 10*6/uL [facility] WBC (Bld) [#/Vol] 5.8 10*3/uL 3.6 - 10.7 10*3/uL [facility] COMPREHENSIVE METABOLIC PANE Antonio 05-21-2024 Albumin [Mass/Vol] 3.2 g/dL Low 3.5-5.0 [facility] Comment on above: Performed By: #### L [id number] #### Reservations Agent: BIANCA NICHOLS ([phone]) [facility] ([facility]) [address] [place] [address] ALP [Catalytic activity/Vol] 142 U/L High 38-126 [facility] Comment on above: Performed By: #### L [id number] #### Reservations Agent: BIANCA NICHOLS ([phone]) [facility] ([facility]) [address] [place] [address] ALT [Catalytic activity/Vol] 21 U/L Normal 0-49 [facility] Comment on above: Performed By: #### L [id number] #### Reservations Agent: BIANCA NICHOLS ([phone]) [facility] ([facility]) [address] [place] [address] Anion gap [Moles/Vol] 8 mmol/L Normal 3-13 [facility] Comment on above: Performed By: #### L [id number] #### Reservations Agent: BIANCA NICHOLS ([phone]) [facility] ([facility]) [address] [place] [address] AST [Catalytic activity/Vol] 24 U/L Normal 15-46 [facility] Comment on above: Performed By: #### L [id number] #### Reservations Agent: BIANCA NICHOLS ([phone]) [facility]) [address] [place] [address] Bilirubin [Mass/Vol] 0.5 mg/dL Normal 0.2-1.3 [facility] Comment on above: Performed By: #### L [id number] #### Reservations Agent: BIANCA NICHOLS ([phone]) [facility] [address] [place] [address] [place] Calcium [Mass/Vol] 8.5 mg/dL Normal 8.4-10.4 [facility] Comment on above: Performed By: #### L [id number] #### Reservations Agent: BIANCA NICHOLS ([phone]) [facility] [address] [place] [address] [place] Chloride [Moles/Vol] 109 mmol/L High 98-107 [facility] Comment on above: Performed By: #### L [id number] #### Reservations Agent: BIANCA NICHOLS ([id number]) [facility] ([facility]) [address] [place] [address] CO2 [Moles/Vol] 18 mmol/L Low 22-30 [facility] Comment on above: Performed By: #### L [id number] #### Reservations Agent: BIANCA NICHOLS ([id number]) [facility] [address] [place] [address] [place] Creatinine [Mass/Vol] 0.46 mg/dL Low 0.66-1.25 [facility] Comment on above: Performed By: #### L [id number] #### Reservations Agent: BIANCA NICHOLS ([phone]) [facility] ([facility]) [address] [place] [address] GLOMERULAR FILTRATION RATE ML/MIN/1.73 SQ M.PREDICTED >90.0 Normal >60.0 [facility] Comment on above: Result Comment: Calc ulation based on the Chronic Kidney Disease Epidemiology Collaboration (CKD-EPI) equation refit without adjustment for race Performed By: #### L [id number] #### Reservations Agent: BIANCA NICHOLS ([phone]) [facility] ([facility]) [address] [place] [address] [place] Glucose [Mass/Vol] 157 mg/dL High 70-100 [facility] Comment on above: Performed By: #### L [id number] #### Reservations Agent: BIANCA NICHOLS ([phone]) [facility] [address] [place] [address] Potassium [Moles/Vol] 3.9 mmol/L Normal 3.5-5.1 [facility] Comment on above: Performed By: #### L [id number] #### Reservations Agent: BIANCA NICHOLS ([phone]) [facility]) [address] [place] [address] Protein [Mass/Vol] 6.2 g/dL Low 6.3-8.2 [facility] Comment on above: Performed By: #### L [id number] #### Reservations Agent: BIANCA NICHOLS ([id number]) [facility]) [address] [place] [address] Sodium [Moles/Vol] 136 mmol/L Normal 135-145 [facility] Comment on above: Performed By: #### L [id number] #### Reservations Agent: BIANCA NICHOLS ([id number]) [facility]) [address] [place] [address] Urea nitrogen [Mass/Vol] 11 mg/dL Normal 9-20 [facility] Comment on above: Performed By: #### L [id number] #### Reservations Agent: BIANCA NICHOLS ([phone]) [facility]) [address] [place] [address] Comprehensive metabolic 1998 panelon 05-21-2024 Albumin [Mass/Vol] 3.2 g/dL Low 3.5 - 5.0 g/dL [facility] ALP [Catalytic activity/Vol] 142 U/L High 38 - 126 U/L [facility] ALT [Catalytic activity/Vol] 21 U/L 0 - 49 U/L [facility] Anion gap [Moles/Vol] 8 mmol/L 3 - 13 mmol/L [facility] AST [Catalytic activity/Vol] 24 U/L 15 - 46 U/L [facility] Bilirubin [Mass/Vol] 0.5 mg/dL 0.2 - 1 .3 mg/dL [facility] Calcium [Mass/Vol] 8.5 mg/dL 8.4 - 10. 4 mg/dL [facility] Chloride [Moles/Vol] 109 mmol/L High 98 - 10 7 mmol/L [facility] CO2 [Moles/Vol] 18 mmol/L Low 22 - 30 mmol/L [facility] Creatinine [Mass/Vol] 0.46 mg/dL Low 0.66 - 1.25 mg/dL [facility] GFR/1.73 sq M.predicted (S/P/Bld) [Vol rate/Area] - PINF [facility] Comment on above: Calculation based on the Chronic Kidney Disease Epidemiology Collaboration (CKD-EPI) equation refit without adjustment for race Glucose [Mass/Vol] 157 mg/dL High 70 - 100 mg/dL [facility] Interpretation and review of laboratory results Abnormal [facility] Potassium [Moles/Vol] 3.9 mmol/L 3.5 - 5.1 mmol/L [facility] Protein [Mass/Vol] 6.2 g/dL Low 6.3 - 8.2 g/dL [facility] Sodium [Moles/Vol] 136 mmol/L 135 - 145 mmol/L [facility] Urea nitrogen [Mass/Vol] 11 mg/dL 9 - 20 mg/dL [facility] IDNon 05-21-2024 IDN Problem: Knowledge [...] Goal: Assess Nutritional Intake Outcome: Progressing Normal [facility] Laboratory - Chemistry and C hemistry - challengeon 05-21-2024 Glucose [Mass/Vol] 261 mg/dL High 70 - 100 mg/dL [facility] Glucose [Mass/Vol] 231 mg/dL High 70 - 100 mg/dL [facility] Glucose [Mass/Vol] 162 mg/dL High 70 - 100 mg/dL [facility] Glucose [Mass/Vol] 154 mg/dL High 70 - 100 mg/dL [facility] No Panel Informationon 05-21 Interpretation and review of laboratory results Abnormal [facility] Performed by: [facility], [address] [place] [address] CLIA ID: [id number] [facility] Interpretation and review of laboratory results Abnormal [facility] Performed by: [facility], [address] [place] [address] CLIA ID: [id number] [facility] Interpretation and review of laboratory results Abnormal [facility] Performed by: [facility], [address] [place] [address] CLIA ID: [id number] [facility] Interpretation and review of laboratory results Abnormal [facility] Performed by: [facility], [address] [place] [address] CLIA ID: [id number] [facility] Bacteria identified Cx Nom ( U)Ordered By: Codie Tang on 05-20-2024 Interpretation and review of laboratory results Abnormal [facility] Bacteria identified Cx Nom ( U)on 05-20-2024 Interpretation and review of laboratory results Abnormal [facility] CARECOORDon 05-20-2024 CARECOORD Chart reviewed. ID following for CoNS postive BC and proteus UTI. Repeat BC pending. +iv cefepime, final course not yet determined. Current discharge plan is return to [facility]. Will return skilled only if needed, otherwise he can return under his medicaid benefit per [facility] message. TCC to continue to follow. Normal [facility] CBC (HEMOGRAM)on 05-20-2024 Erythrocyte distribution width (RBC) [Ratio] 15.1 % High 11.5-15.0 [facility] Comment on above: Performed By: #### L [id number] #### Reservations Agent: BIANCA NICHOLS ([phone]) [facility] ([facility]) [address] [place] [address] Hematocrit (Bld) [Volume fraction] 37.0 % Low 40.0-52.0 [facility] Comment on above: Performed By: #### L [id number] #### Reservations Agent: BIANCA NICHOLS ([phone]) [facility]) [address] [place] [address] Hemoglobin (Bld) [Mass/Vol] 12.2 g/dL Low 13.0-18.0 [facility] Comment on above: Performed By: #### L [id number] #### Reservations Agent: BIANCA NICHOLS ([id number]) [facility] ([facility]) [address] [place] [address] MCH (RBC) [Entitic mass] 29.9 pg Normal 26.0-34.0 [facility] Comment on above: Performed By: #### L [id number] #### Reservations Agent: BIANCA NICHOLS ([id number]) [facility]) [address] [place] [address] MCHC 33.0 % Normal 30.5-36.0 [facility] Comment on above: Performed By: #### L [id number] #### Reservations Agent: BIANCA NICHOLS ([phone]) [facility] ([facility]) [address] [place] [address] MCV (RBC) [Entitic vol] 90.7 fL Normal 77.0-99.0 [facility] Comment on above: Performed By: #### L [id number] #### Reservations Agent: BIANCA NICHOLS ([id number]) [facility] ([facility]) [address] [place] [address] Platelet mean volume (Bld) [Entitic vol] 10.4 fL Normal 9.0-12.7 [facility] Comment on above: Performed By: #### L [id number] #### Reservations Agent: BIANCA NICHOLS ([phone]) [facility] ([facility]) [address] [place] [address] Platelets (Bld) [#/Vol] 197 10*3/uL Normal 140-440 [facility] Comment on above: Performed By: #### L [id number] #### Reservations Agent: BIANCA NICHOLS ([id number]) [facility]) [address] [place] [address] RBC (Bld) [#/Vol] 4.08 10*6/uL Low 4.40-5.90 [facility] Comment on above: Performed By: #### L [id number] #### Reservations Agent: BIANCA NICHOLS ([phone]) [facility] ([facility]) [address] [place] [address] WBC (Bld) [#/Vol] 5.5 10*3/uL Normal 3.6-10.7 [facility] Comment on above: Performed By: #### L [id number] #### Reservations Agent: BIANCA NICHOLS ([phone]) [facility]) [address] [place] [address] CBC panel Auto (Bld)on 05-20 Erythrocyte distribution width (RBC) [Ratio] 15.1 % High 11.5 - 15.0 % [facility] Hematocrit (Bld) [Volume fraction] 37.0 % Low 40.0 - 52.0 % [facility] Hemoglobin (Bld) [Mass/Vol] 12.2 g/dL Low 13.0 - 18.0 g/dL [facility] Interpretation and review of laboratory results Abnormal [facility] MCH (RBC) [Entitic mass] 29.9 pg 26. 0 - 34.0 pg [facility] MCHC (RBC) [Mass/Vol] 33.0 % 30.5 - 36.0 % [facility] MCV (RBC) [Entitic vol] 90.7 fL 77.0 - 99.0 fL [facility] Platelet mean volume (Bld) [Entitic vol] 10.4 fL 9.0 - 12.7 fL [facility] Platelets (Bld) [#/Vol] 197 10*3/uL 140 - 440 10*3/uL [facility] RBC (Bld) [#/Vol] 4.08 10*6/uL Low 4.40 - 5.9 0 10*6/uL [facility] WBC (Bld) [#/Vol] 5.5 10*3/uL 3.6 - 10.7 10*3/uL [facility] COMPREHENSIVE METABOLIC PANE Antonio 05-20-2024 Albumin [Mass/Vol] 3.2 g/dL Low 3.5-5.0 [facility] Comment on above: Performed By: #### L [id number] ####Reservations Agent: BIANCA NICHOLS ([phone])[facility] ([facility])[address] [place] [address] ALP [Catalytic activity/Vol] 153 U/L High 38-126 [facility] Comment on above: Performed By: #### L AB17 ####Reservations Agent: BIANCA NICHOLS ([phone])[facility] ([facility])[address] [place] [address] ALT [Catalytic activity/Vol] 22 U/L Normal 0-49 [facility] Comment on above: Performed By: #### L AB17 ####Reservations Agent: BIANCA NICHOLS ([phone])[facility] ([facility])[address] [place] [address] Anion gap [Moles/Vol] 4 mmol/L Normal 3-13 [facility] Comment on above: Performed By: #### L AB17 ####Reservations Agent: BIANCA NICHOLS ([id number])[facility] ([facility])[address] [place] [address] AST [Catalytic activity/Vol] 23 U/L Normal 15-46 [facility] Comment on above: Performed By: #### L AB17 ####Reservations Agent: BIANCA NICHOLS ([phone])[facility] ([facility])[address] [place] [address] [place] Bilirubin [Mass/Vol] 0.6 mg/dL Normal 0.2-1.3 [facility] Comment on above: Performed By: #### L AB17 ####Reservations Agent: BIANCA NICHOLS ([phone])[facility] ([facility])[address] [place] [address] [place] Calcium [Mass/Vol] 8.5 mg/dL Normal 8.4-10.4 [facility] Comment on above: Performed By: #### L AB17 ####Reservations Agent: BIANCA NICHOLS ([phone])[facility] ([facility])[address] [place] [address] Chloride [Moles/Vol] 109 mmol/L High 98-107 [facility] Comment on above: Performed By: #### L AB17 ####Reservations Agent: BIANCA NICHOLS ([phone])[facility] ([facility])[address] [place] [address] CO2 [Moles/Vol] 21 mmol/L Low 22-30 [facility] Comment on above: Performed By: #### L AB17 ####Reservations Agent: BIANCA NICHOLS ([phone])[facility] ([facility])[address] [place] [address] Creatinine [Mass/Vol] 0.50 mg/dL Low 0.66-1.25 [facility] Comment on above: Performed By: #### L AB17 ####Reservations Agent: BIANCA NICHOLS ([id number])[facility] ([facility])[address] [place] [address] GLOMERULAR FILTRATION RATE ML/MIN/1.73 SQ M.PREDICTED >90.0 Normal >60.0 [facility] Comment on above: Result Comment: Calc ulation based on the Chronic Kidney Disease Epidemiology Collaboration (CKD-EPI) equation refit without adjustment for race Performed By: #### L [id number] ####Reservations Agent: BIANCA NICHOLS ([phone])[facility] ([facility])[address] [place] [place] [address] [place] Glucose [Mass/Vol] 207 mg/dL High 70-100 [facility] Comment on above: Performed By: #### L AB17 ####Reservations Agent: BIANCA NICHOLS ([phone])[facility])[address] [place] [address] Potassium [Moles/Vol] 4.0 mmol/L Normal 3.5-5.1 [facility] Comment on above: Performed By: #### L AB17 ####Reservations Agent: BIANCA NICHOLS ([phone])[facility])[address] [place] [address] Protein [Mass/Vol] 6.4 g/dL Normal 6.3-8.2 [facility] Comment on above: Performed By: #### L [id number] ####Reservations Agent: BIANCA NICHOLS ([id number])[facility])[address] [place] [address] Sodium [Moles/Vol] 134 mmol/L Low 135-145 [facility] Comment on above: Performed By: #### L [id number] ####Reservations Agent: BIANCA NICHOLS ([id number])[facility])[address] [place] [address] Urea nitrogen [Mass/Vol] 10 mg/dL Normal 9-20 [facility] Comment on above: Performed By: #### L AB17 ####Reservations Agent: BIANCA NICHOLS ([id number])[facility])[address] [place] [address] Comprehensive metabolic 1998 panelon 05-20-2024 Albumin [Mass/Vol] 3.2 g/dL Low 3.5 - 5.0 g/dL [facility] ALP [Catalytic activity/Vol] 153 U/L High 38 - 126 U/L [facility] ALT [Catalytic activity/Vol] 22 U/L 0 - 49 U/L [facility] Anion gap [Moles/Vol] 4 mmol/L 3 - 13 mmol/L [facility] AST [Catalytic activity/Vol] 23 U/L 15 - 46 U/L [facility] Bilirubin [Mass/Vol] 0.6 mg/dL 0.2 - 1 .3 mg/dL [facility] Calcium [Mass/Vol] 8.5 mg/dL 8.4 - 10. 4 mg/dL [facility] Chloride [Moles/Vol] 109 mmol/L High 98 - 10 7 mmol/L [facility] CO2 [Moles/Vol] 21 mmol/L Low 22 - 30 mmol/L [facility] Creatinine [Mass/Vol] 0.50 mg/dL Low 0.66 - 1.25 mg/dL [facility] GFR/1.73 sq M.predicted (S/P/Bld) [Vol rate/Area] - PINF [facility] Comment on above: Calculation based on the Chronic Kidney Disease Epidemiology Collaboration (CKD-EPI) equation refit without adjustment for race Glucose [Mass/Vol] 207 mg/dL High 70 - 100 mg/dL [facility] Interpretation and review of laboratory results Abnormal [facility] Potassium [Moles/Vol] 4.0 mmol/L 3.5 - 5.1 mmol/L [facility] Protein [Mass/Vol] 6.4 g/dL 6.3 - 8.2 g/dL [facility] Sodium [Moles/Vol] 134 mmol/L Low 135 - 145 mmol/L [facility] Urea nitrogen [Mass/Vol] 10 mg/dL 9 - 20 mg/dL [facility] IDNon 05-20-2024 IDN Problem: Knowledge Deficit Goal: Patient/family/caregi crystal demonstrates understanding of disease process, treatment plan, medications, and discharge instructions Outcome: Progressing Problem: Potential for Compromised Skin Integrity Goal: Skin Integrity is Maintained or Improved Outcome: Progressing Goal: Nutritional status is improving Outcome: Progressing Normal [facility] Laboratory - Chemistry and C hemistry - challengeon 05-20-2024 Glucose [Mass/Vol] 233 mg/dL High 70 - 100 mg/dL [facility] Glucose [Mass/Vol] 315 mg/dL High 70 - 100 mg/dL [facility] Glucose [Mass/Vol] 255 mg/dL High 70 - 100 mg/dL [facility] Glucose [Mass/Vol] 275 mg/dL High 70 - 100 mg/dL [facility] Laboratory - Microbiology an d Antimicrobial susceptibilityOrdered By: Codie Tang on 05-20-2024 Bacteria identified Cx Nom (U) >100,000 CFU/mL Proteus mirabilis Abnormal [facility] Comment on above: For identification a nd/or sensitivity, refer to culture collected on: 05/18/2024 at 0016 (24[facility]-[id number]). Laboratory - Microbiology an d Antimicrobial susceptibilityon 05-20-2024 Bacteria identified Cx Nom (U) >100,000 CFU/mL Proteus mirabilis Abnormal [facility] Comment on above: This phenotype is singh ggestive of an ESBL-producing organism. Treatment with beta-lactam antibiotics other than carbapenems may not be effective. No Panel Informationon 05-20 Interpretation and review of laboratory results Abnormal [facility] Performed by: [facility], [address] [place] [address], [facility] [address] CLIA ID: [id number] [email or web address] Interpretation and review of laboratory results Abnormal [facility] Performed by: [facility], [address] [place] [address], [facility] [address] CLIA ID: [id number] [facility] Interpretation and review of laboratory results Abnormal [facility] Performed by: [facility], [address] [place] [address], [facility] [address] CLIA ID: [id number] [facility] Interpretation and review of laboratory results Abnormal [facility] Performed by: [facility], [address] [place] [address], [facility] [address] CLIA ID: [id number] [facility] CARECOORDon 05-19-2024 [place] Care Managment Initial Assessment Date: 05/19/2024 Patient Name: Anmol Reynolds : 1960 Patient Information Source of Information: Patient Cognition/Language: WFL - Within Functional Limits Permission given to speak with patient major account representative/caregi crystal as indicated: Yes Confirmation of Payer with patient/family: Yes Payer Name: Medicare A/B; [place]: No Confirmation of Primary Care Physician: Confirmed PCP Name: Tab Nieves MD at facility Seen in last 2 years?: Yes Primary Caregiver: Other (Comment) (facility staff) If assistance needed, confirmed caregiver ready, willing and able to care for patient at discharge: No (n/a) Confirmed with: Living Arrangements Facility: [facility] Facility Name: [facility] Plan to Return: Yes Lives with: Alone, Other (Comment) (at [facility]) Support Systems: Children, Family members, Comments [...] ECF Discharge Planning Actions: Continue to follow, Detention Facility referral indicated [place] of choice: [place] of choice discussed (choice list not indicated; [...] ID consulted. [facility] Patient confirmed plan for return. BEHAVIORAL CONSULTANT tasked to place return referral. Anticipate discharge in 2-3 days pending medical stability. Patient will need transport. TCC to continue to follow. Vipin Peter RN Normal [facility] CBC (HEMOGRAM)on 05-19-2024 Erythrocyte distribution width (RBC) [Ratio] 14.9 % Normal 11.5-15.0 [facility] Comment on above: Performed By: #### L [id number] #### Reservations Agent: BIANCA NICHOLS ([id number]) [facility] ([facility]) [address] [place] [address] Hematocrit (Bld) [Volume fraction] 35.8 % Low 40.0-52.0 [facility] Comment on above: Performed By: #### L [id number] #### Reservations Agent: BIANCA NICHOLS ([id number]) [facility] ([facility]) [address] [place] [address] Hemoglobin (Bld) [Mass/Vol] 12.0 g/dL Low 13.0-18.0 [facility] Comment on above: Performed By: #### L [id number] #### Reservations Agent: BIANCA NICHOLS ([id number]) [facility]) [address] [place] [address] MCH (RBC) [Entitic mass] 30.3 pg Normal 26.0-34.0 [facility] Comment on above: Performed By: #### L [id number] #### Reservations Agent: BIANCA NICHOLS ([id number]) [facility] ([facility]) [address] [place] [address] MCHC 33.5 % Normal 30.5-36.0 [facility] Comment on above: Performed By: #### L [id number] #### Reservations Agent: BIANCA NICHOLS ([id number]) [facility]) [address] [place] [address] MCV (RBC) [Entitic vol] 90.4 fL Normal 77.0-99.0 [facility] Comment on above: Performed By: #### L [id number] #### Reservations Agent: BIANCA NICHOLS ([id number]) [facility] ([facility]) [address] [place] [address] Platelet mean volume (Bld) [Entitic vol] 10.6 fL Normal 9.0-12.7 [facility] Comment on above: Performed By: #### L [id number] #### Reservations Agent: BIANCA NICHOLS ([id number]) [facility] ([facility]) [address] [place] [address] [place] Platelets (Bld) [#/Vol] 212 10*3/uL Normal 140-440 [facility] Comment on above: Performed By: #### L [id number] #### Reservations Agent: BIANCA NICHOLS ([id number]) [facility]) [address] [place] [address] RBC (Bld) [#/Vol] 3.96 10*6/uL Low 4.40-5.90 [facility] Comment on above: Performed By: #### L [id number] #### Reservations Agent: BIANCA NICHOLS ([id number]) [facility] ([facility]) [address] [place] [address] WBC (Bld) [#/Vol] 5.4 10*3/uL Normal 3.6-10.7 [facility] Comment on above: Performed By: #### L [id number] #### Reservations Agent: BIANCA NICHOLS ([id number]) [facility] ([facility]) [address] [place] [address] CBC panel Auto (Bld)on 05-19 Erythrocyte distribution width (RBC) [Ratio] 14.9 % 11.5 - 15.0 % [facility] Hematocrit (Bld) [Volume fraction] 35.8 % Low 40.0 - 52.0 % [facility] Hemoglobin (Bld) [Mass/Vol] 12.0 g/dL Low 13.0 - 18.0 g/dL [facility] Interpretation and review of laboratory results Abnormal [facility] MCH (RBC) [Entitic mass] 30.3 pg 26. 0 - 34.0 pg [facility] MCHC (RBC) [Mass/Vol] 33.5 % 30.5 - 36.0 % [facility] MCV (RBC) [Entitic vol] 90.4 fL 77.0 - 99.0 fL [facility] Platelet mean volume (Bld) [Entitic vol] 10.6 fL 9.0 - 12.7 fL [facility] Platelets (Bld) [#/Vol] 212 10*3/uL 140 - 440 10*3/uL [facility] RBC (Bld) [#/Vol] 3.96 10*6/uL Low 4.40 - 5.9 0 10*6/uL [facility] WBC (Bld) [#/Vol] 5.4 10*3/uL 3.6 - 10.7 10*3/uL [facility] COMPREHENSIVE METABOLIC PANE Antonio 05-19-2024 Albumin [Mass/Vol] 3.1 g/dL Low 3.5-5.0 [facility] Comment on above: Performed By: #### L [id number] #### Reservations Agent: BIANCA NICHOLS ([id number]) [facility] ([facility]) [address] [place] [address] [place] ALP [Catalytic activity/Vol] 155 U/L High 38-126 [facility] Comment on above: Performed By: #### L [id number] #### Reservations Agent: BIANCA NICHOLS ([id number]) [facility] ([facility]) [address] [place] [address] ALT [Catalytic activity/Vol] 19 U/L Normal 0-49 [facility] Comment on above: Performed By: #### L [id number] #### Reservations Agent: BIANCA NICHOLS ([id number]) [facility] ([facility]) [address] [place] [address] Anion gap [Moles/Vol] 3 mmol/L Normal 3-13 [facility] Comment on above: Performed By: #### L [id number] #### Reservations Agent: BIANCA NICHOLS ([id number]) [facility] ([facility]) [address] [place] [address] AST [Catalytic activity/Vol] 29 U/L Normal 15-46 [facility] Comment on above: Performed By: #### L [id number] #### Reservations Agent: BIANCA NICHOLS ([id number]) [facility] ([facility]) [address] [place] [address] Bilirubin [Mass/Vol] 0.6 mg/dL Normal 0.2-1.3 [facility] Comment on above: Performed By: #### L [id number] #### Reservations Agent: BIANCA NICHOLS ([id number]) [facility] ([facility]) [address] [place] [address] [place] Calcium [Mass/Vol] 8.4 mg/dL Normal 8.4-10.4 [facility] Comment on above: Performed By: #### L [id number] #### Reservations Agent: BIANCA NICHOLS ([id number]) [facility] ([facility]) [address] [place] [address] [place] Chloride [Moles/Vol] 110 mmol/L High 98-107 [facility] Comment on above: Performed By: #### L [id number] #### Reservations Agent: BIANCA NICHOLS ([id number]) [facility] ([facility]) [address] [place] [address] [place] CO2 [Moles/Vol] 21 mmol/L Low 22-30 [facility] Comment on above: Performed By: #### L [id number] #### Reservations Agent: BIANCA NICHOLS ([id number]) [facility] [address] [place] [address] Creatinine [Mass/Vol] 0.44 mg/dL Low 0.66-1.25 [facility] Comment on above: Performed By: #### L [id number] #### Reservations Agent: BIANCA NICHOLS ([id number]) [facility] ([facility]) [address] [place] [address] GLOMERULAR FILTRATION RATE ML/MIN/1.73 SQ M.PREDICTED >90.0 Normal >60.0 [facility] Comment on above: Result Comment: Calc ulation based on the Chronic Kidney Disease Epidemiology Collaboration (CKD-EPI) equation refit without adjustment for race Performed By: #### L [id number] #### Reservations Agent: BIANCA NICHOLS ([id number]) [facility] [address] [place] [address] [place] Glucose [Mass/Vol] 212 mg/dL High 70-100 [facility] Comment on above: Performed By: #### L [id number] #### Reservations Agent: BIANCA NICHOLS ([id number]) [facility] ([facility]) [address] [place] [address] [place] Potassium [Moles/Vol] 3.4 mmol/L Low 3.5-5.1 [facility] Comment on above: Performed By: #### L [id number] #### Reservations Agent: BIANCA NICHOLS ([id number]) [facility] [address] [place] [address] [place] Protein [Mass/Vol] 6.3 g/dL Normal 6.3-8.2 [facility] Comment on above: Performed By: #### L [id number] #### Reservations Agent: BIANCA NICHOLS ([id number]) [facility] ([facility]) [address] [place] [address] [place] Sodium [Moles/Vol] 134 mmol/L Low 135-145 [facility] Comment on above: Performed By: #### L [id number] #### Reservations Agent: BIANCA NICHOLS ([id number]) [facility] [address] [place] [address] Urea nitrogen [Mass/Vol] 11 mg/dL Normal 9-20 [facility] Comment on above: Performed By: #### L [id number] #### Reservations Agent: BIANCA NICHOLS ([id number]) [facility] ([facility]) [address] [place] [address] Comprehensive metabolic 1998 panelOrdered By: Harman Dempsey on 05-19-2024 Albumin [Mass/Vol] 3.1 g/dL Low 3.5 - 5.0 g/dL [facility] ALP [Catalytic activity/Vol] 155 U/L High 38 - 126 U/L [facility] ALT [Catalytic activity/Vol] 19 U/L 0 - 49 U/L [facility] Anion gap [Moles/Vol] 3 mmol/L 3 - 13 mmol/L [facility] AST [Catalytic activity/Vol] 29 U/L 15 - 46 U/L [facility] Bilirubin [Mass/Vol] 0.6 mg/dL 0.2 - 1 .3 mg/dL [facility] Calcium [Mass/Vol] 8.4 mg/dL 8.4 - 10. 4 mg/dL [facility] Chloride [Moles/Vol] 110 mmol/L High 98 - 10 7 mmol/L [facility] CO2 [Moles/Vol] 21 mmol/L Low 22 - 30 mmol/L [facility] Creatinine [Mass/Vol] 0.44 mg/dL Low 0.66 - 1.25 mg/dL [facility] GFR/1.73 sq M.predicted (S/P/Bld) [Vol rate/Area] - PINF [facility] Comment on above: Calculation based on the Chronic Kidney Disease Epidemiology Collaboration (CKD-EPI) equation refit without adjustment for race Glucose [Mass/Vol] 212 mg/dL High 70 - 100 mg/dL [facility] Interpretation and review of laboratory results Abnormal [facility] Potassium [Moles/Vol] 3.4 mmol/L Low 3.5 - 5.1 mmol/L [facility] Protein [Mass/Vol] 6.3 g/dL 6.3 - 8.2 g/dL [facility] Sodium [Moles/Vol] 134 mmol/L Low 135 - 145 mmol/L [facility] Urea nitrogen [Mass/Vol] 11 mg/dL 9 - 20 mg/dL [facility] Laboratory - Chemistry and C hemistry - challengeon 05-19-2024 Glucose [Mass/Vol] 292 mg/dL High 70 - 100 mg/dL [facility] Glucose [Mass/Vol] 294 mg/dL High 70 - 100 mg/dL [facility] Glucose [Mass/Vol] 333 mg/dL High 70 - 100 mg/dL [facility] Glucose [Mass/Vol] 274 mg/dL High 70 - 100 mg/dL [facility] No Panel Informationon 05-19 Interpretation and review of laboratory results Abnormal [facility] Performed by: [facility], [address] [place] [address] CLIA ID: [id number] [facility] Interpretation and review of laboratory results Abnormal [facility] Performed by: [facility], [address] [place] [address] CLIA ID: [id number] [facility] Interpretation and review of laboratory results Abnormal [facility] Performed by: [facility], [address] [place] [id number] CLIA ID: [id number] [facility] Interpretation and review of laboratory results Abnormal [facility] Performed by: [facility], [address] [place] [address] CLIA ID: [id number] [facility] Progress Noteon 05-19-2024 Progress Note [...] of note, pt was recently admitted to [facility] 04/14-04/20/2024 with proteus, providencia, and morganella bacteremia [...] On: Kcal/kg Weight Used for Energy Requirements: [place] Weight for Energy Calculation (kg): 89 kg Total Energy Requirements (kcals/day): 0385-5487 kcal/day (25-30 kcal/kg) Weight Used for Protein Requirements: [place] Weight in Kg Used for Protein Requirements: [...] mostly appear stated, 180-200#, noted 04/19- 212#) [place] Body Weight (lbs) (Calculated): 196 lbs [place] Body Weight (Kg) (Calculated): 89 kg BMI [...] Chelita Dominguez RD Contact: Secure chat or *[phone] Normal [facility] BASIC METABOLIC PANELon 05-05 Anion gap [Moles/Vol] 5 mmol/L Normal 3-13 [facility] Comment on above: Performed By: #### L [id number] #### Reservations Agent: BIANCA NICHOLS ([id number]) [facility] ([facility]) [address] [place] [address] Calcium [Mass/Vol] 8.6 mg/dL Normal 8.4-10.4 [facility] Comment on above: Performed By: #### L [id number] #### Reservations Agent: BIANCA NICHOLS ([id number]) [facility] [address] [place] [address] Chloride [Moles/Vol] 108 mmol/L High 98-107 [facility] Comment on above: Performed By: #### L [id number] #### Reservations Agent: BIANCA NICHOLS ([id number]) [facility] [address] [place] [address] CO2 [Moles/Vol] 22 mmol/L Normal 22-30 [facility] Comment on above: Performed By: #### L [id number] #### Reservations Agent: BIANCA NICHOLS ([id number]) [facility] ([facility]) [address] [place] [address] Creatinine [Mass/Vol] 0.64 mg/dL Low 0.66-1.25 [facility] Comment on above: Performed By: #### L [id number] #### Reservations Agent: BIANCA NICHOLS ([id number]) [facility] ([facility]) [address] [place] [address] GLOMERULAR FILTRATION RATE ML/MIN/1.73 SQ M.PREDICTED >90.0 Normal >60.0 [facility] Comment on above: Result Comment: Calc ulation based on the Chronic Kidney Disease Epidemiology Collaboration (CKD-EPI) equation refit without adjustment for race ORDER COMMENTS: Slightly Hemolyzed. Interpret K+ with caution. Performed By: #### L [id number] #### Reservations Agent: BIANCA NICHOLS ([id number]) [facility] [address] [place] [address] [place] Glucose [Mass/Vol] 143 mg/dL High 70-100 [facility] Comment on above: Performed By: #### L [id number] #### Reservations Agent: BIANCA NICHOLS ([id number]) [facility] [address] [place] [address] [place] Potassium [Moles/Vol] 4.5 mmol/L Normal 3.5-5.1 [facility] Comment on above: Performed By: #### L [id number] #### Reservations Agent: BIANCA NICHOLS ([id number]) [facility] ([facility]) [address] [place] [address] Sodium [Moles/Vol] 136 mmol/L Normal 135-145 [facility] Comment on above: Performed By: #### L [id number] #### Reservations Agent: BIANCA NICHOLS ([id number]) [facility] [address] [place] [address] Urea nitrogen [Mass/Vol] 13 mg/dL Normal 9-20 [facility] Comment on above: Performed By: #### L [id number] #### Reservations Agent: BIANCA NICHOLS ([id number]) [facility] ([facility]) [address] [place] [address] Basic metabolic 1998 panelon 05-18-2024 Anion gap [Moles/Vol] 5 mmol/L 3 - 13 mmol/L [facility] Calcium [Mass/Vol] 8.6 mg/dL 8.4 - 10. 4 mg/dL [facility] Chloride [Moles/Vol] 108 mmol/L High 98 - 10 7 mmol/L [facility] CO2 [Moles/Vol] 22 mmol/L 22 - 30 mmol/L [facility] Creatinine [Mass/Vol] 0.64 mg/dL Low 0.66 - 1.25 mg/dL [facility] GFR/1.73 sq M.predicted (S/P/Bld) [Vol rate/Area] - PINF [facility] Comment on above: Calculation based on the Chronic Kidney Disease Epidemiology Collaboration (CKD-EPI) equation refit without adjustment for race Glucose [Mass/Vol] 143 mg/dL High 70 - 100 mg/dL [facility] Interpretation and review of laboratory results Abnormal [facility] Potassium [Moles/Vol] 4.5 mmol/L 3.5 - 5.1 mmol/L [facility] Sodium [Moles/Vol] 136 mmol/L 135 - 145 mmol/L [facility] Urea nitrogen [Mass/Vol] 13 mg/dL 9 - 20 mg/dL [facility] Slightly Hemolyzed. Interpret K+ with caution. [facility] CBC W Auto Differential pane l (Bld)Ordered By: Gayle Stafford on 05-18-2024 Basophils (Bld) [#/Vol] 0.1 10*3/uL 0.0 - 0.2 10*3/uL [facility] Basophils/100 WBC (Bld) 0.8 % 0.0 - 2.0 % [facility] Eosinophils (Bld) [#/Vol] 0.4 10*3/uL 0.0 - 0.5 10*3/uL [facility] Eosinophils/100 WBC (Bld) 5.4 % 0.0 - 6.0 % [facility] Erythrocyte distribution width (RBC) [Ratio] 15.6 % High 11.5 - 15.0 % [facility] Hematocrit (Bld) [Volume fraction] 38.7 % Low 40.0 - 52.0 % [facility] Hemoglobin (Bld) [Mass/Vol] 12.5 g/dL Low 13.0 - 18.0 g/dL [facility] Immature granulocytes (Bld) [#/Vol] 0.0 10*3/uL NINF - 0.1 10*3/uL [facility] Immature granulocytes/100 WBC (Bld) 0.4 % 0.0 - 2.0 % [facility] Interpretation and review of laboratory results Abnormal [facility] Lymphocytes (Bld) [#/Vol] 2.2 10*3/uL 1.0 - 4.3 10*3/uL [facility] Lymphocytes/100 WBC (Bld) 28.0 % 15.0 - 45.0 % [facility] MCH (RBC) [Entitic mass] 30.3 pg 26. 0 - 34.0 pg [facility] MCHC (RBC) [Mass/Vol] 32.3 % 30.5 - 36.0 % [facility] MCV (RBC) [Entitic vol] 93.7 fL 77.0 - 99.0 fL [facility]inox Monocytes (Bld) [#/Vol] 0.7 10*3/uL 0.0 - 0.9 10*3/uL [facility] Monocytes/100 WBC (Bld) 9.6 % 5.0 - 13.0 % [facility] Neutrophils (Bld) [#/Vol] 4.3 10*3/uL 1.8 - 7.5 10*3/uL [facility] Neutrophils/100 WBC (Bld) 55.8 % 38.0 - 82.0 % [facility] Nucleated RBC/100 WBC (Bld) [Ratio] 0.0 % [facility] Platelet mean volume (Bld) [Entitic vol] 10.9 fL 9.0 - 12.7 fL [facility] Platelets (Bld) [#/Vol] 222 10*3/uL 140 - 440 10*3/uL [facility] RBC (Bld) [#/Vol] 4.13 10*6/uL Low 4.40 - 5.9 0 10*6/uL [facility] WBC (Bld) [#/Vol] 7.7 10*3/uL 3.6 - 10.7 10*3/uL [facility] CBC WITH AUTO DIFFERENTIALon 05-18-2024 Basophils (Bld) [#/Vol] 0.1 10*3/uL Normal 0.0-0.2 [facility] Comment on above: Performed By: #### L [id number] #### Reservations Agent: BIANCA NICHOLS ([phone]) [facility]) [address] [place] [address] Basophils/100 WBC (Bld) 0.8 % Normal 0.0-2.0 S [facility] Comment on above: Performed By: #### L [id number] #### Reservations Agent: BIANCA NICHOLS ([phone]) [facility] ([facility]) [address] [place] [address] [place] Eosinophils (Bld) [#/Vol] 0.4 10*3/uL Normal 0.0-0.5 [facility] Comment on above: Performed By: #### L [id number] #### Reservations Agent: BIANCA NICHOLS ([phone]) [facility] ([facility]) [address] [place] [address] Eosinophils/100 WBC (Bld) 5.4 % Normal 0.0-6.0 [facility] Comment on above: Performed By: #### L [id number] #### Reservations Agent: BIANCA NICHOLS ([phone]) [facility] ([facility]) [address] [place] [address] Erythrocyte distribution width (RBC) [Ratio] 15.6 % High 11.5-15.0 [facility] Comment on above: Performed By: #### L [id number] #### Reservations Agent: BIANCA NICHOLS ([phone]) [facility]) [address] [place] [address] Hematocrit (Bld) [Volume fraction] 38.7 % Low 40.0-52.0 [facility] Comment on above: Performed By: #### L [id number] #### Reservations Agent: BIANCA NICHOLS ([phone]) [facility] ([facility]) [address] [place] [address] Hemoglobin (Bld) [Mass/Vol] 12.5 g/dL Low 13.0-18.0 [facility] Comment on above: Performed By: #### L [id number] #### Reservations Agent: BIANCA NICHOLS ([phone]) [facility] ([facility]) [address] [place] [address] IMMATURE GRANS % 0.4 % Normal 0.0-2.0 [facility] Comment on above: Performed By: #### L [id number] #### Reservations Agent: BIANCA NICHOLS ([phone]) [facility]) [address] [place] [address] IMMATURE GRANS ABSOLUTE 0.0 10*3/uL Normal <0.1 [facility] Comment on above: Performed By: #### L [id number] #### Reservations Agent: BIANCA NICHOLS ([phone]) [facility]) [address] [place] [address] Lymphocytes (Bld) [#/Vol] 2.2 10*3/uL Normal 1.0-4.3 [facility] Comment on above: Performed By: #### L [id number] #### Reservations Agent: BIANCA NICHOLS ([phone]) [facility]) [address] [place] [address] Lymphocytes/100 WBC (Bld) 28.0 % Normal 15.0-45.0 [facility] Comment on above: Performed By: #### L [id number] #### Reservations Agent: BIANCA NICHOLS ([id number]) [facility] ([facility]) [address] [place] [address] MCH (RBC) [Entitic mass] 30.3 pg Normal 26.0-34.0 [facility] Comment on above: Performed By: #### L [id number] #### Reservations Agent: BIANCA NICHOLS ([phone]) [facility]) [address] [place] [address] MCHC 32.3 % Normal 30.5-36.0 [facility] Comment on above: Performed By: #### L [id number] #### Reservations Agent: BIANCA NICHOLS ([phone]) [facility]) [address] [place] [address] MCV (RBC) [Entitic vol] 93.7 fL Normal 77.0-99.0 [facility] Comment on above: Performed By: #### L [id number] #### Reservations Agent: BIANCA NICHOLS ([phone]) [facility]) [address] [place] [address] Monocytes (Bld) [#/Vol] 0.7 10*3/uL Normal 0.0-0.9 [facility] Comment on above: Performed By: #### L [id number] #### Reservations Agent: BIANCA NICHOLS ([id number]) [facility]) [address] [place] [address] Monocytes/100 WBC (Bld) 9.6 % Normal 5.0-13.0 S [facility] Comment on above: Performed By: #### L [id number] #### Reservations Agent: BIANCA NICHOLS ([phone]) [facility]) [address] [place] [address] NEUTROPHILS ABSOLUTE 4.3 10*3/uL Normal 1.8-7.5 [facility] Comment on above: Performed By: #### L [id number] #### Reservations Agent: BIANCA NICHOLS ([phone]) [facility]) [address] [place] [address] Neutrophils/100 WBC (Bld) 55.8 % Normal 38.0-82.0 [facility] Comment on above: Performed By: #### L [id number] #### Reservations Agent: BIANCA NICHOLS ([phone]) [facility]) [address] [place] [address] NRBC 0.0 /100 WBCs Normal 0.0-2.0 [facility] Comment on above: Performed By: #### L [id number] #### Reservations Agent: BIANCA NICHOLS ([phone]) [facility]) [address] [place] [address] Platelet mean volume (Bld) [Entitic vol] 10.9 fL Normal 9.0-12.7 [facility] Comment on above: Performed By: #### L [id number] #### Reservations Agent: BIANCA NICHOLS ([id number]) [facility]) [address] [place] [address] Platelets (Bld) [#/Vol] 222 10*3/uL Normal 140-440 [facility] Comment on above: Performed By: #### L [id number] #### Reservations Agent: BIANCA NICHOLS ([id number]) [facility]) [address] [place] [address] RBC (Bld) [#/Vol] 4.13 10*6/uL Low 4.40-5.90 [facility] Comment on above: Performed By: #### L [id number] #### Reservations Agent: BIANCA NICHOLS ([phone]) [facility]) [address] [place] [address] WBC (Bld) [#/Vol] 7.7 10*3/uL Normal 3.6-10.7 [facility] Comment on above: Performed By: #### L [id number] #### Reservations Agent: BIANCA NICHOLS ([phone]) [facility]) [address] [place] [address] COMPLETE URINALYSISon 2023 BACTERIA (#/HPF) IN URINE Many Abnormal Negative [facility] Comment on above: Performed By: #### L [id number] #### Reservations Agent: BIANCA NICHOLS ([phone]) [facility]) [address] [place] [address] BILIRUBIN, TOTAL PRESENCE IN URINE Negative Normal Negative [facility] Comment on above: Performed By: #### L [id number] #### Reservations Agent: BIANCA NICHOLS ([phone]) [facility]) [address] [place] [address] Clarity (U) Turbid Abnormal Clear [facility] Comment on above: Performed By: #### L [id number] #### Reservations Agent: BIANCA NICHOLS ([phone]) [facility]) [address] [place] [address] Color (U) Yellow Normal Lt. Yellow [facility] Comment on above: Performed By: #### L [id number] #### Reservations Agent: BIANCA NICHOLS ([phone]) [facility]) [address] [place] [address] [place] GLUCOSE (MG/DL) IN URINE Normal Normal Nor mal (<70) [facility] Comment on above: Performed By: #### L [id number] #### Reservations Agent: BIANCA NICHOLS ([phone]) [facility]) [address] [place] [address] HEMOGLOBIN PRESENCE IN URINE 0.5 mg/dL Abnormal Negative [facility] Comment on above: Performed By: #### L [id number] #### Reservations Agent: BIANCA NICHOLS ([phone]) [facility]) [address] [place] [address] [place] HYALINE CASTS (#/LPF) IN URINE SEDIMENT BY MICROSCOPY Negative Normal Negative [facility] Comment on above: Performed By: #### L [id number] #### Reservations Agent: BIANCA NICHOLS ([phone]) [facility]) [address] [place] [address] [place] Ketones Ql (U) Negative Normal Negative [facility] Comment on above: Performed By: #### L [id number] #### Reservations Agent: BIANCA NICHOLS ([id number]) [facility]) [address] [place] [address] LEUKOCYTE ESTERASE PRESENCE IN URINE BY TEST STRIP 500 Ad/uL Abnormal Negative [facility] Comment on above: Performed By: #### L [id number] #### Reservations Agent: BIANCA NICHOLS ([phone]) [facility]) [address] [place] [address] [place] MUCUS (#/LPF) IN URINE SEDIMENT Few Normal Negative [facility] Comment on above: Performed By: #### L [id number] #### Reservations Agent: BIANCA NICHOLS ([phone]) [facility]) [address] [place] [address] NITRITE PRESENCE IN URINE Positive Abnormal Negative [facility] Comment on above: Performed By: #### L [id number] #### Reservations Agent: BIANCA NICHOLS ([phone]) [facility]) [address] [place] [address] pH (U) 6.5 [pH] Normal 5.0-8.0 [facility] Comment on above: Performed By: #### L [id number] #### Reservations Agent: BIANCA NICHOLS ([phone]) [facility]) [address] [place] [address] Protein (U) [Mass/Vol] 50 mg/dL Abnormal Negative [facility] Comment on above: Performed By: #### L [id number] #### Reservations Agent: BIANCA NICHOLS ([phone]) [facility]) [address] [place] [address] [place] RBC (#/HPF) IN URINE SEDIMENT 51-100 Abnormal 0-2 [facility] Comment on above: Performed By: #### L [id number] #### Reservations Agent: BIANCA NICHOLS ([phone]) [facility]) [address] [place] [address] Specific gravity (U) [Rel density] 1.015 Normal 1.005-1.030 [facility] Comment on above: Performed By: #### L [id number] #### Reservations Agent: BIANCA NICHOLS ([phone]) [facility]) [address] [place] [address] SQUAMOUS EPITHELIAL CELLS (#/HPF) IN URINE SEDIMENT Negative Normal 3-5 [facility] Comment on above: Performed By: #### L [id number] #### Reservations Agent: BIANCA NICHOLS ([phone]) [facility]) [address] [place] [address] UROBILINOGEN (MG/DL) IN URINE Normal Normal Normal (0-1) [facility] Comment on above: Performed By: #### L [id number] #### Reservations Agent: BIANCA NICHOLS ([phone]) [facility]) [address] [place] [address] WBC (LEUKOCYTE) (#/HPF) IN URINE SEDIMENT >100 Abnormal 0-5 [facility] Comment on above: Performed By: #### L [id number] #### Reservations Agent: BIANCA NICHOLS ([phone]) [facility] [address] [place] [address] WBC (LEUKOCYTE) CLUMPS (#/HPF) IN URINE SEDIMENT Many Abnormal Negative [facility] Comment on above: Performed By: #### L [id number] #### Reservations Agent: BIANCA NICHOLS ([phone]) [facility]) [address] [place] [address] Consulton 05-18-2024 Consult [facility] - Infectious Diseases [facility] inpatient Consult Note Reason for Consult: Complicated [...] daptomycin with suppressive minocycline. Pt presented to [facility] ED on 05/17/2024 for evaluation of positive blood cultures. Pt was recently admitted to [facility] 04/14-04/20/2024 with proteus, providencia, and morganella bacteremia [...] DECOMPRESSION performed by Opal Vigil MD at [facility] OR ORTHOPEDIC SURGERY Right removal of hardware [...] ondansetron (Zofran) injec (more content not included)... [facility] ED Nursing Noteon 05-18-2024 ED Nursing Note Pt refusing BG check stating "I'm already eating." aware. Ella Zavala RN 05/18/24 1805 [facility] ED Nursing Note Pt refusing BG check at this time. aware. Ella Zavala RN 05/18/24 1237 [facility] ED Nursing Note Pt refusing continuous IV fluids. aware Ella Zavala RN 05/18/24 1051 [facility] ED Nursing Note Pt moved onto hospital bed, denies any needs or complaints at this time. Ella Zavala RN 05/18/24 1026 [facility] ED Nursing Note Pharmacy contacted regarding missing oxycodone. Ella Zavala RN 05/18/24 1052 [facility] ED Nursing Note Pt refused BG check/meds at this time stating "I just want some sleep." Hospital bed ordered for pt. Meds deferred at this time. Ella Zavala RN 05/18/24 0822 [facility] ED Nursing Note Pt had a bowel movement, this RN & another RN cleaned pt. Carmen Crews RN 05/18/24 0454 [facility] ED Nursing Note Pt transport has bee n requested Carmen Crews RN 05/18/24 0433 [facility] ED Nursing Note Pt is asleep, w/ unlabored breathing Carmen Crews RN 05/18/24 0155 Carmen Crews RN 05/18/24 0156 [facility] IDNon 05-18-2024 IDN The patient is Moderately Stable - Low risk of patient condition declining or worsening The patient's goals for the shift include Pain control. The clinical goals for the shift include Patient to remain free of injury for the entirety of the shift. Normal [facility] - Chemistry and C hemistry - challengeon 05-18-2024 Glucose [Mass/Vol] 140 mg/dL High 70 - 100 mg/dL [facility] No Panel Informationon 05-18 Interpretation and review of laboratory results Abnormal [facility] Performed by: [facility], [address] [place] [address] CLIA ID: [id number] [facility] URINE CULTUREon 05-18-2024 Bacteria identified [...] Non-susceptible NO = No Interpretation ] Normal [facility] Comment on above: Performed By: #### L [id number] #### Reservations Agent: BIANCA NICHOLS ([id number]) [facility] ([facility]) [address] [place] [address] Urinalysis complete panel (U )Ordered By: Franchesca Garnica on 05-18-2024 Bacteria LM.HPF (Urine sed) [#/Area] Many Abnormal Negative /HPF [facility] Bilirubin Ql (U) Negative Negative mg/dL [facility] Clarity (U) Turbid Abnormal Clear [facility] Color (U) Yellow Lt. Yellow [facility] Epithelial cells.squamous LM.HPF (Urine sed) [#/Area] Negative [facility] Glucose Ql (U) Normal Normal (<70) mg/dL [facility] Hemoglobin Ql (U) 0.5 mg/dL Abnormal Negative [facility] Hyaline casts Auto (Urine sed) [#/Area] Negative Negative /LPF [facility] Interpretation and review of laboratory results Abnormal [facility] Ketones (U) [Mass/Vol] Negative Negat mary grace mg/dL [facility] Leukocyte clumps LM.HPF (Urine sed) [#/Area] Many Abnormal Negative /HPF [facility] Leukocyte esterase Test strip Ql (U) 500 Abnormal Negative Da/uL [facility] Mucus LM.HPF (Urine sed) [#/Area] Few Negative /LPF [facility] Nitrite Ql (U) Positive Abnormal Negative [facility] th pH (U) 6.5 [pH] 5.0 - 8.0 pH [facility] Protein (U) [Mass/Vol] 50 mg/dL Abnormal Negative [facility] RBC LM.HPF (Urine sed) [#/Area] 51-100 Abnormal [facility] Specific gravity (U) [Rel density] 1.015 1.005 - 1.030 [facility] Urobilinogen (U) [Mass/Vol] Normal Normal (0-1) mg/dL [facility] WBC LM.HPF (Urine sed) [#/Area] /[HPF] Abnormal [facility] 36on 05-17-[address] Moyer his response in secure chat is to have him come to the hospital to get IV antibiotics. I called [facility] [phone] and spoke with his nurse Clement and notified her Dr. Moyer is suggesting Anmol goes to the hospital for IV antibiotics due to his blood culture results. Normal [facility] 36 BC prelim received Gram positive cocci in clusters. Msg sent to Dr. Moyer via secure chat too. Normal [facility] BASIC METABOLIC PANELon 05-05 Anion gap [Moles/Vol] 6 mmol/L Normal - [facility] Comment on above: Performed By: #### L [id number] #### Reservations Agent: BIANCA NICHOLS ([phone]) [facility] ([facility]) [address] [place] [address] Calcium [Mass/Vol] 8.7 mg/dL Normal 8.4-10.4 [facility] Comment on above: Performed By: #### L [id number] #### Reservations Agent: BIANCA NICHOLS ([id number]) [facility] ([facility]) [address] [place] [address] Chloride [Moles/Vol] 109 mmol/L High 98-107 [facility] Comment on above: Performed By: #### L [id number] #### Reservations Agent: BIANCA NICHOLS ([phone]) [facility] [address] [place] [address] CO2 [Moles/Vol] 20 mmol/L Low 22-30 [facility] Comment on above: Performed By: #### L [id number] #### Reservations Agent: BIANCA NICHOLS ([id number]) [facility] [address] [place] [address] Creatinine [Mass/Vol] 0.68 mg/dL Normal 0.66-1.25 [facility] Comment on above: Performed By: #### L [id number] #### Reservations Agent: BIANCA NICHOLS ([phone]) [facility] [address] [place] [address] GLOMERULAR FILTRATION RATE ML/MIN/1.73 SQ M.PREDICTED >90.0 Normal >60.0 [facility] Comment on above: Result Comment: Calc ulation based on the Chronic Kidney Disease Epidemiology Collaboration (CKD-EPI) equation refit without adjustment for race Performed By: #### L [id number] #### Reservations Agent: BIANCA NICHOLS ([phone]) [facility] [address] [place] [address] [place] Glucose [Mass/Vol] 172 mg/dL High 70-100 [facility] Comment on above: Performed By: #### L [id number] #### Reservations Agent: BIANCA NICHOLS ([phone]) [facility] [address] [place] [address] [place] Potassium [Moles/Vol] 4.4 mmol/L Normal 3.5-5.1 [facility] Comment on above: Performed By: #### L [id number] #### Reservations Agent: BIANCA NICHOLS ([phone]) [facility]) [address] [place] [address] Sodium [Moles/Vol] 136 mmol/L Normal 135-145 [facility] Comment on above: Performed By: #### L [id number] #### Reservations Agent: BIANCA NICHOLS ([phone]) [facility]) [address] [place] [address] Urea nitrogen [Mass/Vol] 12 mg/dL Normal 9-20 [facility] Comment on above: Performed By: #### L [id number] #### Reservations Agent: BIANCA NICHOLS ([phone]) [facility]) [address] [place] [address] BC GPC IDon 05-17-2024 BC GPC ID [id number] Enterococcus sp. Not Detected Listeria spp Not Detected NAAT METHOD Testing was performed using nucleic acid amplification Staphylococcus sp. A DETECTED A Streptococcus spp. Not Detected mecA Not Detected Amrit/vanB Not Detected Coag Negative Staph Normal [facility] Comment on above: Performed By: #### L 500.2500, L100.0500 #### [facility] [address] [place], [address] BLOOD CULTUREon 05-17-2024 Bacteria identified Cx Nom (Bld) BLOOD CULTURE Reference No growth at 5 days ORDER COMMENTS: Blood Collection Site: Left Antecubital [ S = SUSCEPTIBLE R = RESISTANT I = INTERMEDIATE S-DD = Susceptible-dose dependent NS = Non-susceptible NO = No Interpretation ] Normal [facility] Comment on above: Performed By: #### L [id number] #### Reservations Agent: BIANCA NICHOLS ([phone]) [facility]) [address] [place] [address] Bacteria identified Cx Nom (Bld) BLOOD CULTURE Reference No growth at 5 days ORDER COMMENTS: Blood Collection Site: Left Arm [ S = SUSCEPTIBLE R = RESISTANT I = INTERMEDIATE S-DD = Susceptible-dose dependent NS = Non-susceptible NO = No Interpretation ] Normal [facility] Comment on above: Performed By: #### L [id number] #### Reservations Agent: BIANCA NICHOLS ([phone]) [facility] [address] [place] [address] Basic metabolic 1998 panelon 05-17-2024 Anion gap [Moles/Vol] 6 mmol/L 3 - 13 mmol/L [facility] Calcium [Mass/Vol] 8.7 mg/dL 8.4 - 10. 4 mg/dL [facility] Chloride [Moles/Vol] 109 mmol/L High 98 - 10 7 mmol/L [facility] CO2 [Moles/Vol] 20 mmol/L Low 22 - 30 mmol/L [facility] Creatinine [Mass/Vol] 0.68 mg/dL 0.66 - 1.25 mg/dL [facility] GFR/1.73 sq M.predicted (S/P/Bld) [Vol rate/Area] - PINF [facility] Comment on above: Calculation based on the Chronic Kidney Disease Epidemiology Collaboration (CKD-EPI) equation refit without adjustment for race Glucose [Mass/Vol] 172 mg/dL High 70 - 100 mg/dL [facility] Interpretation and review of laboratory results Abnormal [facility] Potassium [Moles/Vol] 4.4 mmol/L 3.5 - 5.1 mmol/L [facility] Sodium [Moles/Vol] 136 mmol/L 135 - 145 mmol/L [facility] Urea nitrogen [Mass/Vol] 12 mg/dL 9 - 20 mg/dL [facility] CBC W Auto Differential pane l (Bld)Ordered By: Janice Carey on 05-17-2024 Basophils (Bld) [#/Vol] 0.0 10*3/uL 0.0 - 0.2 10*3/uL [facility] Basophils/100 WBC (Bld) 0.8 % 0.0 - 2.0 % [facility] Eosinophils (Bld) [#/Vol] 0.3 10*3/uL 0.0 - 0.5 10*3/uL [facility] Eosinophils/100 WBC (Bld) 7.4 % High 0.0 - 6.0 % [facility] Erythrocyte distribution width (RBC) [Ratio] 16.8 % High 11.5 - 15.0 % [facility] Hematocrit (Bld) [Volume fraction] 60.0 % High 40.0 - 52.0 % [facility] Hemoglobin (Bld) [Mass/Vol] 19.6 g/dL High 13.0 - 18.0 g/dL [facility] Immature granulocytes (Bld) [#/Vol] 0.0 10*3/uL NINF - 0.1 10*3/uL [facility] Immature granulocytes/100 WBC (Bld) 0.3 % 0.0 - 2.0 % [facility] Interpretation and review of laboratory results Abnormal [facility] Lymphocytes (Bld) [#/Vol] 1.0 10*3/uL 1.0 - 4.3 10*3/uL [facility] Lymphocytes/100 WBC (Bld) 26.9 % 15.0 - 45.0 % [facility] MCH (RBC) [Entitic mass] 30.1 pg 26. 0 - 34.0 pg [facility] MCHC (RBC) [Mass/Vol] 32.7 % 30.5 - 36.0 % [facility] MCV (RBC) [Entitic vol] 92.2 fL 77.0 - 99.0 fL [facility] Monocytes (Bld) [#/Vol] 0.2 10*3/uL 0.0 - 0.9 10*3/uL [facility] Monocytes/100 WBC (Bld) 6.8 % 5.0 - 13.0 % [facility] Neutrophils (Bld) [#/Vol] 2.0 10*3/uL 1.8 - 7.5 10*3/uL [facility] Neutrophils/100 WBC (Bld) 57.8 % 38.0 - 82.0 % [facility] Nucleated RBC/100 WBC (Bld) [Ratio] 0.0 % [facility] Platelet mean volume (Bld) [Entitic vol] 9.9 fL 9.0 - 12.7 fL [facility] Platelets (Bld) [#/Vol] 105 10*3/uL Low 140 - 440 10*3/uL [facility] RBC (Bld) [#/Vol] 6.51 10*6/uL High 4.40 - 5.9 0 10*6/uL [facility] WBC (Bld) [#/Vol] 3.5 10*3/uL Low 3.6 - 10.7 10*3/uL [facility] CBC WITH AUTO DIFFERENTIALon 05-17-2024 Basophils (Bld) [#/Vol] 0.0 10*3/uL Normal 0.0-0.2 [facility] Comment on above: Performed By: #### L [id number] #### Reservations Agent: BIANCA NICHOLS ([id number]) [facility] ([facility]) [address] [place] [address] Basophils/100 WBC (Bld) 0.8 % Normal 0.0-2.0 [facility] Comment on above: Performed By: #### L [id number] #### Reservations Agent: BIANCA NICHOLS ([id number]) [facility]) [address] [place] [address] Eosinophils (Bld) [#/Vol] 0.3 10*3/uL Normal 0.0-0.5 [facility] Comment on above: Performed By: #### L [id number] #### Reservations Agent: BIANCA NICHOLS ([id number]) [facility] ([facility]) [address] [place] [address] Eosinophils/100 WBC (Bld) 7.4 % High 0.0-6.0 [facility] Comment on above: Performed By: #### L [id number] #### Reservations Agent: BIANCA NICHLOS ([id number]) [facility]) [address] [place] [address] Erythrocyte distribution width (RBC) [Ratio] 16.8 % High 11.5-15.0 [facility] Comment on above: Performed By: #### L [id number] #### Reservations Agent: BIANCA NICHOLS ([id number]) [facility] ([facility]) [address] [place] [address] Hematocrit (Bld) [Volume fraction] 60.0 % High 40.0-52.0 [facility] Comment on above: Performed By: #### L [id number] #### Reservations Agent: BIANCA NICHOLS ([phone]) [facility]) [address] [place] [address] Hemoglobin (Bld) [Mass/Vol] 19.6 g/dL High 13.0-18.0 [facility] Comment on above: Performed By: #### L [id number] #### Reservations Agent: BIANCA NICHOLS ([phone]) [facility]) [address] [place] [address] IMMATURE GRANS % 0.3 % Normal 0.0-2.0 [facility] Comment on above: Performed By: #### L [id number] #### Reservations Agent: BIANCA NICHOLS ([id number]) [facility]) [address] [place] [address] IMMATURE GRANS ABSOLUTE 0.0 10*3/uL Normal <0.1 [facility] Comment on above: Performed By: #### L [id number] #### Reservations Agent: BIANCA NICHOLS ([id number]) [facility]) [address] [place] [address] Lymphocytes (Bld) [#/Vol] 1.0 10*3/uL Normal 1.0-4.3 [facility] Comment on above: Performed By: #### L [id number] #### Reservations Agent: BIANCA NICHOLS ([phone]) [facility]) [address] [place] [address] Lymphocytes/100 WBC (Bld) 26.9 % Normal 15.0-45.0 [facility] Comment on above: Performed By: #### L [id number] #### Reservations Agent: BIANCA NICHOLS ([phone]) [facility]) [address] [place] [address] MCH (RBC) [Entitic mass] 30.1 pg Normal 26.0-34.0 [facility] Comment on above: Performed By: #### L [id number] #### Reservations Agent: BIANCA NICHOLS ([phone]) [facility]) [address] [place] [address] MCHC 32.7 % Normal 30.5-36.0 [facility] Comment on above: Performed By: #### L [id number] #### Reservations Agent: BIANCA NICHOLS ([phone]) [facility] ([facility]) [address] [place] [address] MCV (RBC) [Entitic vol] 92.2 fL Normal 77.0-99.0 [facility] Comment on above: Performed By: #### L [id number] #### Reservations Agent: BIANCA NICHOLS ([id number]) [facility] ([facility]) [address] [place] [address] Monocytes (Bld) [#/Vol] 0.2 10*3/uL Normal 0.0-0.9 [facility] Comment on above: Performed By: #### L [id number] #### Reservations Agent: BIANCA NICHOLS ([phone]) [facility]) [address] [place] [address] Monocytes/100 WBC (Bld) 6.8 % Normal 5.0-13.0 [facility] Comment on above: Performed By: #### L [id number] #### Reservations Agent: BIANCA NICHOLS ([phone]) [facility] ([facility]) [address] [place] [address] NEUTROPHILS ABSOLUTE 2.0 10*3/uL Normal 1.8-7.5 [facility] Comment on above: Performed By: #### L [id number] #### Reservations Agent: BIANCA NICHOLS ([id number]) [facility]) [address] [place] [address] Neutrophils/100 WBC (Bld) 57.8 % Normal 38.0-82.0 [facility] Comment on above: Performed By: #### L [id number] #### Reservations Agent: BIANCA NICHOLS ([phone]) [facility] ([facility]) [address] [place] [address] [place] NRBC 0.0 /100 WBCs Normal 0.0-2.0 [facility] Comment on above: Performed By: #### L [id number] #### Reservations Agent: BIANCA NICHOLS ([id number]) [facility]) [address] [place] [address] Platelet mean volume (Bld) [Entitic vol] 9.9 fL Normal 9.0-12.7 [facility] Comment on above: Performed By: #### L [id number] #### Reservations Agent: BIANCA NICHOLS ([id number]) [facility] [address] [place] [address] Platelets (Bld) [#/Vol] 105 10*3/uL Low 140-440 [facility] Comment on above: Performed By: #### L [id number] #### Reservations Agent: BIANCA NICHOLS ([id number]) [facility]) [address] [place] [address] RBC (Bld) [#/Vol] 6.51 10*6/uL High 4.40-5.90 [facility] Comment on above: Performed By: #### L [id number] #### Reservations Agent: BIANCA NICHOLS ([phone]) [facility] [address] [place] [address] WBC (Bld) [#/Vol] 3.5 10*3/uL Low 3.6-10.7 [facility] Comment on above: Performed By: #### L [id number] #### Reservations Agent: BIANCA NICHOLS ([phone]) [facility] [address] [place] [address] COMPLETE URINALYSISon 2023 BACTERIA (#/HPF) IN URINE Many Abnormal Negative [facility] Comment on above: Performed By: #### L [id number] #### Reservations Agent: BIANCA NICHOLS ([phone]) [facility]) [address] [place] [address] BILIRUBIN, TOTAL PRESENCE IN URINE Negative Normal Negative [facility] Comment on above: Performed By: #### L [id number] #### Reservations Agent: BIANCA NICHOLS ([id number]) [facility] ([facility]) [address] [place] [address] Clarity (U) Turbid Abnormal Clear [facility] Comment on above: Performed By: #### L [id number] #### Reservations Agent: BIANCA NICHOLS ([phone]) [facility] [address] [place] [address] Color (U) Yellow Normal Lt. Yellow [facility] Comment on above: Performed By: #### L [id number] #### Reservations Agent: BIANCA NICHOLS ([phone]) [facility] ([facility]) [address] [place] [address] [place] GLUCOSE (MG/DL) IN URINE Normal Normal Nor mal (<70) [facility] Comment on above: Performed By: #### L [id number] #### Reservations Agent: BIANCA NICHOLS ([id number]) [facility] ([facility]) [address] [place] [address] HEMOGLOBIN PRESENCE IN URINE 1.0 mg/dL Abnormal Negative [facility] Comment on above: Performed By: #### L [id number] #### Reservations Agent: BIANCA NICHOLS ([phone]) [facility] ([facility]) [address] [place] [address] [place] Ketones Ql (U) Negative Normal Negative [facility] Comment on above: Performed By: #### L [id number] #### Reservations Agent: BIANCA NICHOLS ([phone]) [facility] ([facility]) [address] [place] [address] LEUKOCYTE ESTERASE PRESENCE IN URINE BY TEST STRIP 500 Da/uL Abnormal Negative [facility] Comment on above: Performed By: #### L [id number] #### Reservations Agent: BIANCA NICHOLS ([phone]) [facility]) [address] [place] [address] [place] MUCUS (#/LPF) IN URINE SEDIMENT Few Normal Negative [facility] Comment on above: Performed By: #### L [id number] #### Reservations Agent: BIANCA NICHOLS ([phone]) [facility]) [address] [place] [address] [place] NITRITE PRESENCE IN URINE Positive Abnormal Negative [facility] Comment on above: Performed By: #### L [id number] #### Reservations Agent: BIANCA NICHOLS ([id number]) [facility] ([facility]) [address] [place] [address] pH (U) 8.0 [pH] Normal 5.0-8.0 [facility] Comment on above: Performed By: #### L [id number] #### Reservations Agent: BIANCA NICHOLS ([phone]) [facility] [address] [place] [address] Protein (U) [Mass/Vol] 100 mg/dL Abnormal Negative [facility] Comment on above: Performed By: #### L [id number] #### Reservations Agent: BIANCA NICHOLS ([id number]) [facility]) [address] [place] [address] [place] RBC (#/HPF) IN URINE SEDIMENT 11-25 Abnormal 0-2 [facility] Comment on above: Performed By: #### L [id number] #### Reservations Agent: BIANCA NICHOLS ([id number]) [facility] ([facility]) [address] [place] [address] Specific gravity (U) [Rel density] 1.016 Normal 1.005-1.030 [facility] Comment on above: Performed By: #### L [id number] #### Reservations Agent: BIANCA NICHOLS ([id number]) [facility] ([facility]) [address] [place] [address] SQUAMOUS EPITHELIAL CELLS (#/HPF) IN URINE SEDIMENT Negative Normal 3-5 [facility] Comment on above: Performed By: #### L [id number] #### Reservations Agent: BIANCA NICHOLS ([phone]) [facility]) [address] [place] [address] [place] TRIPLE PHOSPHATE CRYSTALS (#/HPF) IN URINE Few Abnormal Negative [facility] Comment on above: Performed By: #### L [id number] #### Reservations Agent: BIANCA NCIHOLS ([id number]) [facility] [address] [place] [address] [place] UROBILINOGEN (MG/DL) IN URINE Normal Normal Normal (0-1) [facility] Comment on above: Performed By: #### L [id number] #### Reservations Agent: BIANCA NICHOLS ([phone]) [facility] [address] [place] [address] WBC (LEUKOCYTE) (#/HPF) IN URINE SEDIMENT >100 Abnormal 0-5 [facility] Comment on above: Performed By: #### L [id number] #### Reservations Agent: BIANCA NICHOLS ([phone]) [facility] [address] [place] [address] ED Provider Noteon ED Provider Note Emergency Department Encounter [facility] EMERGENCY DEPT Patient: Anmol Reynolds : 1960 [...] [employer] Rodney Guerrero DO 05/18/24 0435 [facility] ED Provider Note EMERGENCY DEPARTMENT ENCOUNTER [...] DECOMPRESSION performed by Opal Vigil MD at [facility] OR ORTHOPEDIC SURGERY Right removal of hardware [...] CR (KL (more content not included)... Normal [facility] LACTIC ACID WITH REFLEXon Lactate [Moles/Vol] 1.4 mmol/L Normal 0.7-2.0 [facility] Comment on above: Performed By: #### L [id number] #### Reservations Agent: BIANCA NICHOLS ([phone]) [facility]) [address] [place] [address] Laboratory - Chemistry and C hemistry - challengeon 05-17-2024 Lactate [Moles/Vol] 1.4 mmol/L 0.7 - 2. 0 mmol/L [facility] No Panel Informationon 05-17 Interpretation and review of laboratory results Normal [facility] URINE CULTUREon 05-17-2024 Bacteria identified Cx Nom (U) URINE CULTURE (A) Reference PROTEUS MIRABILIS >100,000 CFU/mL Proteus mirabilis (A) For identification and/or sensitivity, refer to culture collected on: 05/18/2024 at 0016 ([facility]-[id number]). [ S = SUSCEPTIBLE R = RESISTANT I = INTERMEDIATE S-DD = Susceptible-dose dependent NS = Non-susceptible NO = No Interpretation ] Normal [facility] Comment on above: Performed By: #### L [id number] #### Reservations Agent: BIANCA NICHOLS ([id number]) [facility] ([facility]) [address] [place] [address] Urinalysis complete panel (U )Ordered By: Madison Novak on 05-17-2024 Bacteria LM.HPF (Urine sed) [#/Area] Many Abnormal Negative /HPF [facility] Bilirubin Ql (U) Negative Negative mg/dL [facility] Clarity (U) Turbid Abnormal Clear [facility] Color (U) Yellow Lt. Yellow [facility] Epithelial cells.squamous LM.HPF (Urine sed) [#/Area] Negative [facility] Glucose Ql (U) Normal Normal (<70) mg/dL [facility] Hemoglobin Ql (U) 1.0 mg/dL Abnormal Negative [facility] Interpretation and review of laboratory results Abnormal [facility] Ketones (U) [Mass/Vol] Negative Negat mary grace mg/dL [facility] Leukocyte esterase Test strip Ql (U) 500 Abnormal Negative Da/uL [facility] Mucus LM.HPF (Urine sed) [#/Area] Few Negative /LPF [facility] Nitrite Ql (U) Positive Abnormal Negative [facility] pH (U) 8.0 [pH] 5.0 - 8.0 pH [facility] Protein (U) [Mass/Vol] 100 mg/dL Abnormal Negative [facility] RBC LM.HPF (Urine sed) [#/Area] 11-25 Abnormal [facility] Specific gravity (U) [Rel density] 1.016 1.005 - 1.030 [facility] Triple phosphate crystals LM.HPF (Urine sed) [#/Area] Few Abnormal Negative /HPF [facility] Urobilinogen (U) [Mass/Vol] Normal Normal (0-1) mg/dL [facility] WBC LM.HPF (Urine sed) [#/Area] /[HPF] Abnormal [facility] Progress Noteson 05-15-2024 Department Chairperson Authentication Interface Message Text HISTORY OF PRESENT ILLNESS ----- Diagnostic Sales Specialist: not needed - patient preferred language is Mongolian. HIPAA: Verbal permission granted from patient to discuss case, including protected health information, in front of family / friends in room at the time of the evaluation. Anmol Reynolds is a very pleasant 63 year old male here as new patient for a second opinion of MRI results. In 2019, pt had his first back surgery performed by [facility] which was an interbody fusion. 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 At that point, the hospital took the hardware out and did not replace it with the goal of treating the infection. 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 After the infection was treated, [facility] extended his fusion, decompressed the back, and [...] Resource Strain: Low Risk (04/24/2023) Received from [facility] Overall Financial Resource Strain (CARDIA) Difficulty of Paying Living Expenses: Not hard at all Food Insecurity: No Food Insecurity (05/05/2024) Received from [facility] Hunger Vital Sign Worried About Running Out of Food in the Last Year: Never true Ran Out of Food in the Last Year: Never true Transportation Needs: No Transportation Needs (05/05/2024) Received from [facility] PRAPARE - Transportation Lack of Transportation (Medical): No Lack of Transportation (Non-Medical): No Intimate Partner Violence: Not At Risk (05/05/2024) Received from [facility] Humiliation, Afraid, Rape, and Kick questionnaire Fear [...] heal (more content not included)... Normal [facility] 36on 05-13-2024 36 Call received back from nurse Birdie who states blooc cultures were missed, but she will have them done on Thursday when the lab come back to the facility. Normal [facility] 36 Called and spoke to nurse Packer at [facility] to obtain blood culture results that were ordered to be done on 05/06/24. She did state she cannot tell if they were done, she will call their lab and have the results faxed to us. If they were not done, she will have them obtained. I did ask that she please let us know what the outcome it. Normal [facility] XR SACRUM-COCCYX 3 VIEWSon 0 05-12-2024 XR [...] stents are noted. MACRO: None Normal [facility] XR SCOLIOSIS PA + LAT 2 OR 3 VIEWSon 05-12-2024 XR SCOLIOSIS PA + LAT 2 OR 3 VIEWS EXAMINATION: XR SCOLIOSIS PA + LAT 2 OR 3 VIEWS 05/11/2024 04:02 PM CLINICAL HISTORY: upright scoli - [place] [facility] DIAGNOSIS: Sacral insufficiency fracture, initial encounter ORDERING PROVIDER: OTIS [employer] NOTE: Best possible - Upright in chair, right lateral due to limitations of room layout and equipment COMPARISON: None FINDINGS: Dextroscoliosis of thoracic spine is noted. Luevano angle measures 10.0 degrees. Adrian is at T8 level. Fusion of lumbar [...] of L2-L3 segments. MACRO: None Normal [facility] XR Sacrum and Coccyx Viewson 05-12-2024 [...] insufficiency fracture, initial encounter ORDERING PROVIDER: BERNA MICHAEL NOTE: COMPARISON: None Findings Osteopenia of coccyx [...] considered. Ureteral stents are noted. MACRO: None [facility] XR Sacrum and Coccyx ViewsOr dered By: Juan William on 05-12-2024 [facility] Work Phone: XR Thoracic and lumbar spine 2 Views for scoliosison 05-12-2024 EXAMINATION: XR SCOLIOSIS PA + LAT 2 OR 3 VIEWS 05/11/2024 04:02 PM CLINICAL HISTORY: upright scoli - [place] [facility] DIAGNOSIS: Sacral insufficiency fracture, initial encounter ORDERING PROVIDER: OTIS MEJIA TECHNJUNIE NOTE: Best possible - Upright in chair, right lateral due to limitations of room layout and equipment COMPARISON: None FINDINGS: Dextroscoliosis of thoracic spine is noted. Luevano angle measures 10.0 degrees. Adrian is at T8 level. Fusion of lumbar [...] 04:02 PM CLINICAL HISTORY: upright scoli - [place] [facility] DIAGNOSIS: Sacral insufficiency fracture, initial encounter ORDERING PROVIDER: OTIS MEJIA TECHNJUNIE NOTE: Best possible - Upright in chair, right lateral due to limitations of room layout and equipment COMPARISON: None FINDINGS: Dextroscoliosis of thoracic spine is noted. Luevano angle measures 10.0 degrees. Adrian is at T8 level. Fusion of lumbar [...] and fusion of L2-L3 segments. MACRO: None [facility] XR Sacrum and Coccyx Viewson 05-11-2024 Radiology Study observation (narrative) [facility] XR Thoracic and lumbar spine 2 Views for scoliosison 05-11-2024 Radiology Study observation (narrative) [facility] Telephone Encounteron 2023 Department Chairperson Authentication Interface Message Text Pt calling requesting provider to follow up regarding MRI. Pt was unable to provide telephone, address or SSN. No information was provided at this time. Normal [facility] 36on 05-09-2024 36 Nahun nurse from half-way was given verbatim per Dr. Coates. Nahun voiced understanding. Normal [facility] [address] Ruiz hdez rec add cipro to his regimen. Pt in nurse home Please have them add cipro 500mg bid for 10 days Normal [facility] Basic Metabolic Profile (BMP )on 05-09-2024 BUN/CRE 19.7 RATIO Normal 10-20 [facility] Comment on above: Order Comment: 313-2 Performed By: #### L 100.0500, L500.2500 #### [facility] [address] [place], [address] CA,Total 8.5 mg/dL Normal 8.5-10.1 [facility] Comment on above: Order Comment: 313-2 Performed By: #### L 100.0500, L500.2500 #### [facility] [address] [place], [address] Chloride [Moles/Vol] 107 mmol/L Normal 98-107 [facility] Comment on above: Order Comment: 313-2 Performed By: #### L 100.0500, L500.2500 #### [facility] [address] [place], [address] CO2 [Moles/Vol] 25.0 mmol/L Normal 21.0-32.0 [facility] Comment on above: Order Comment: 313-2 Performed By: #### L 100.0500, L500.2500 #### [facility] [address] [place], [address] Creatinine [Mass/Vol] 0.61 mg/dL Low 0.70-1.30 [facility] Comment on above: Order Comment: 313-2 Result Comment: The validity of the calculated GFR GFRAA in patients over 70 years has not been determined. Clinical correlation is essential. Performed By: #### L 100.0500, L500.2500 #### [facility] [address] [place], [address] EST GFR - AA 172 mL/min Normal >60 [facility] Comment on above: Order Comment: 313-2 Result Comment: Afri can Urugu[place] GFR Calc Performed By: #### L 100.0500, L500.2500 #### [facility] [address] [place], [address] GAP 6 Normal 5-15 [facility] Comment on above: Order Comment: 313-2 Performed By: #### L 100.0500, L500.2500 #### [facility] [address] [place], [address] GFR/1.73 sq M.predicted among non-blacks MDRD (S/P/Bld) [Vol rate/Area] 142 mL/min/{1.73_m2} Normal >60 [facility] Comment on above: Order Comment: 313-2 Result Comment: Non- GFR Calc Performed By: #### L 100.0500, L500.2500 #### [facility] [address] [place], [address] Glucose [Mass/Vol] 158 mg/dL High 74-106 [facility] Comment on above: Order Comment: 313-2 Result Comment: Fast ing Glucose result greater than or equal to 126 mg/dL suggests DIABETES MELLITUS per A.D.A. criteria. Performed By: #### L 100.0500, L500.2500 #### [facility] [address] [place], [address] Potassium [Moles/Vol] 3.8 mmol/L Normal 3.5-5.1 [facility] Comment on above: Order Comment: 313-2 Performed By: #### L 100.0500, L500.2500 #### [facility] [address] [place], [address] Sodium [Moles/Vol] 138 mmol/L Normal 136-145 [facility] Comment on above: Order Comment: 313-2 Performed By: #### L 100.0500, L500.2500 #### [facility] [address] [place], [address] Urea nitrogen [Mass/Vol] 12 mg/dL Normal 7-18 [facility] Comment on above: Order Comment: 313-2 Performed By: #### L 100.0500, L500.2500 #### [facility] [address] [place], [address] CBC-Complete Blood Cnt No Di ffon 05-09-2024 Erythrocyte distribution width (RBC) [Ratio] 14.7 % High 11.6-14.6 [facility] Comment on above: Order Comment: 313-2 Performed By: #### L 100.0500, L500.2500 #### [facility] [address] [place], [address] Hematocrit (Bld) [Volume fraction] 36.6 % Low 40-54 [facility] Comment on above: Order Comment: 313-2 Performed By: #### L 100.0500, L500.2500 #### [facility] [address] [place], [address] Hemoglobin (Bld) [Mass/Vol] 11.7 g/dL Low 13.0-16.5 [facility] Comment on above: Order Comment: 313-2 Performed By: #### L 100.0500, L500.2500 #### [facility] [address] [place], [address] MCH (RBC) [Entitic mass] 29.9 pg Normal 27.0-32.0 [facility] Comment on above: Order Comment: 313-2 Performed By: #### L 100.0500, L500.2500 #### [facility] [address] [place], [address] MCHC (RBC) [Mass/Vol] 32.0 g/dL Normal 32-36 [facility] Comment on above: Order Comment: 313-2 Performed By: #### L 100.0500, L500.2500 #### [facility] [address] [place], [address] MCV (RBC) [Entitic vol] 93.6 fL Normal 80-94 [facility] Comment on above: Order Comment: 313-2 Performed By: #### L 100.0500, L500.2500 #### [facility] [address] [place], [address] Platelet mean volume (Bld) [Entitic vol] 11.3 fL Normal 6.2-12.0 [facility] Comment on above: Order Comment: 313-2 Performed By: #### L 100.0500, L500.2500 #### [facility] [address] [place], [address] Platelets (Bld) [#/Vol] 264 10*3/uL Normal 150-450 [facility] Comment on above: Order Comment: 313-2 Performed By: #### L 100.0500, L500.2500 #### [facility] [address] [place], [address] RBC (Bld) [#/Vol] 3.91 10*6/uL Low 4.6-6.2 [facility] Comment on above: Order Comment: 313-2 Performed By: #### L 100.0500, L500.2500 #### [facility] [address] [place], [address] RDW SD 50.4 fl High 35.1-43.9 [facility] Comment on above: Order Comment: 313-2 Performed By: #### L 100.0500, L500.2500 #### [facility] [address] [place], [address] WBC (Bld) [#/Vol] 6.8 10*3/uL Normal 4.4-11.0 [facility] Comment on above: Order Comment: 313-2 Performed By: #### L 100.0500, L500.2500 #### [facility] [address] [place], [address] 36on 05-06-2024 36 He had laser of a large bladder stone left ureteroscopy and bilateral stent change. He needs to follow-up in 2-4 weeks for cystoscopy left stent removal right ureteroscopy possible laser lithotripsy possible right stent removal possible right stent change Normal [facility] BASIC METABOLIC PANELon 08-0 Anion gap [Moles/Vol] 8 mmol/L Normal 3-13 [facility] Comment on above: Performed By: #### L AB15 ####Reservations Agent: BIANCA NICHOLS ([phone])[address] Calcium [Mass/Vol] 8.4 mg/dL Normal 8.4-10.4 [facility] Comment on above: Performed By: #### L AB15 ####Reservations Agent: BIANCA NICHOLS ([phone])[address] Chloride [Moles/Vol] 105 mmol/L Normal 98-107 [facility] Comment on above: Performed By: #### L AB15 ####Reservations Agent: BIANCA NICHOLS ([id number])[facility] ([facility])[address] [place] [address] CO2 [Moles/Vol] 23 mmol/L Normal 22-30 [facility] Comment on above: Performed By: #### L AB15 ####Reservations Agent: BIANCA NICHOLS ([id number])[facility] [place] [address] Creatinine [Mass/Vol] 0.62 mg/dL Low 0.66-1.25 [facility] Comment on above: Performed By: #### L AB15 ####Reservations Agent: BIANCA NICHOLS ([phone])[facility] ([facility])[address] [place] [address] GLOMERULAR FILTRATION RATE ML/MIN/1.73 SQ M.PREDICTED >90.0 Normal >60.0 [facility] Comment on above: Result Comment: Calc ulation based on the Chronic Kidney Disease Epidemiology Collaboration (CKD-EPI) equation refit without adjustment for race Performed By: #### L AB15 ####Reservations Agent: BIANCA NICHOLS ([id number])[facility] [place] [address] Glucose [Mass/Vol] 416 mg/dL High 70-100 [facility] Comment on above: Performed By: #### L AB15 ####Reservations Agent: BIANCA NICHOLS ([id number])[facility] ([facility])[address] [place] [address] Potassium [Moles/Vol] 4.1 mmol/L Normal 3.5-5.1 [facility] Comment on above: Performed By: #### L AB15 ####Reservations Agent: BIANCA NICHOLS ([phone])[facility] ([facility])[address] [place] [address] [place] Sodium [Moles/Vol] 136 mmol/L Normal 135-145 [facility] Comment on above: Performed By: #### L AB15 ####Reservations Agent: BIANCA NICHOLS ([phone])[facility] [place] [address] [place] Urea nitrogen [Mass/Vol] 14 mg/dL Normal 9-20 [facility] Comment on above: Performed By: #### L AB15 ####Reservations Agent: BIANCA NICHOLS ([phone])[facility] ([address] Basic metabolic 1998 panelon 05-06-2024 Anion gap [Moles/Vol] 8 mmol/L 3 - 13 mmol/L [facility] Calcium [Mass/Vol] 8.4 mg/dL 8.4 - 10. 4 mg/dL [facility] Chloride [Moles/Vol] 105 mmol/L 98 - 10 7 mmol/L [facility] CO2 [Moles/Vol] 23 mmol/L 22 - 30 mmol/L [facility] Creatinine [Mass/Vol] 0.62 mg/dL Low 0.66 - 1.25 mg/dL [facility] GFR/1.73 sq M.predicted (S/P/Bld) [Vol rate/Area] - PINF [facility] Comment on above: Calculation based on the Chronic Kidney Disease Epidemiology Collaboration (CKD-EPI) equation refit without adjustment for race Glucose [Mass/Vol] 416 mg/dL High 70 - 100 mg/dL [facility] Interpretation and review of laboratory results Abnormal [facility] Potassium [Moles/Vol] 4.1 mmol/L 3.5 - 5.1 mmol/L [facility] Sodium [Moles/Vol] 136 mmol/L 135 - 145 mmol/L [facility] Urea nitrogen [Mass/Vol] 14 mg/dL 9 - 20 mg/dL [facility] CARECOORDon 05-06-2024 [facility] Site of Care Admission Date: 05/05/2024 10:36 AM Patient Name: ANMOL REYNOLDS Location: [id number] A Date of : 1960 ------- Placement Information ------- Referral Type:Halfway/SNF - Return Referral ID:[id number] Provider Name:[facility] Address 1:[address] [place] [address] Address 2: City:[place] Selection Factors:Patient/Famil y Choice State:[facility] [place] Addendum to earlier note: Pt to be discharged (returned) back to [facility]. Bedside RN aware, SW aware and will plan transport. [facility] [place] Care Managment Initial Assessment Date: 05/06/2024 Patient Name: Anmol Reynolds : 1960 Patient Information Source of Information: Patient Cognition/Language: WFL - Within Functional Limits Permission given to speak with patient major account representative/caregi crystal as indicated: Confirmation of Payer with patient/family: Yes Payer Name: Medicare A/B : No Confirmation of Primary Care Physician: Confirmed PCP Name: Ambrosio Monroy, Seen in last 2 years?: Yes Primary Caregiver: Self If assistance needed, confirmed caregiver ready, willing and able to care for patient at discharge: Confirmed with: Living Arrangements Current Residence: Number of Floors Number of Entry Steps: Bed/Bath Levels: Facility: Nursing Facility Skilled Facility Name: [facility] Plan to Return: Yes Lives with: Other (Comment) ([facility]) Support Systems: Parent, Family members, Friends/neighbors Activities [...] Assistance Provider Meal Prep Assistance Provider Name: [facility] Laundry/Cleaning: Assistance Provider Laundry/Cleaning Assistance Provider Name: [facility] Finances/Bill Paying: Independent Communication: Independent Types of Care Services/Equipment Utilized Care Services: Dialysis Type: Durable Medical Equipment: Wheelchair (standard or power), Hospital Bed, Other (Comment) DME Provider: Santana catheter (chronic) Patient's Goal/Discharge Plan Patient expects to be discharged to: Return to [facility] Discharge Planning Actions: Detention Facility referral indicated [place] of choice: [place] of choice discussed Patient's Choice Rights and [...] for kidney stones bilaterally. Pt is from [facility] and is agreeable to return. Pt states his mother is across the [place] from him. He has a chronic santana and R picc in place. On iv ceftriaxone. Regular diet. Pt had PT eval ordered. Met with pt at bedside; explained role of tcc. Pt wanting to return to [facility] Has chronic santana catheter. He has an electric w/c. Anticipate discharge (return) to [facility] today if medically stable. Anel Lima RN [facility] CBC (HEMOGRAM)on 05-06-2024 Erythrocyte distribution width (RBC) [Ratio] 14.5 % Normal 11.5-15.0 [facility] Comment on above: Performed By: #### L [id number] #### Reservations Agent: BIANCA NICHOLS ([phone]) [facility]) [address] [place] [address] Hematocrit (Bld) [Volume fraction] 36.0 % Low 40.0-52.0 [facility] Comment on above: Performed By: #### L AB233 #### Reservations Agent: BIANCA NICHOLS ([id number]) [facility]) [address] [place] [address] Hemoglobin (Bld) [Mass/Vol] 12.1 g/dL Low 13.0-18.0 [facility] Comment on above: Performed By: #### L AB233 #### Reservations Agent: BIANCA NICHOLS ([id number]) [facility] ([facility]) [address] [place] [address] MCH (RBC) [Entitic mass] 30.3 pg Normal 26.0-34.0 [facility] Comment on above: Performed By: #### L AB233 #### Reservations Agent: BIANCA NICHOLS ([phone]) [facility]) [address] [place] [address] MCHC 33.6 % Normal 30.5-36.0 [facility] Comment on above: Performed By: #### L AB233 #### Reservations Agent: BIANCA NICHOLS ([id number]) [facility] ([facility]) [address] [place] [address] MCV (RBC) [Entitic vol] 90.2 fL Normal 77.0-99.0 S [facility] Comment on above: Performed By: #### L AB233 #### Reservations Agent: BIANCA NICHOLS ([phone]) [facility] ([facility]) [address] [place] [address] Platelet mean volume (Bld) [Entitic vol] 10.8 fL Normal 9.0-12.7 [facility] Comment on above: Performed By: #### L AB233 #### Reservations Agent: BIANCA NICHOLS ([phone]) [facility]) [address] [place] [address] Platelets (Bld) [#/Vol] 273 10*3/uL Normal 140-440 [facility] Comment on above: Performed By: #### L AB233 #### Reservations Agent: BIANCA NICHOLS ([phone]) [facility]) [address] [place] [address] RBC (Bld) [#/Vol] 3.99 10*6/uL Low 4.40-5.90 [facility] Comment on above: Performed By: #### L AB233 #### Reservations Agent: BIANCA NICHOLS ([id number]) [facility]) [address] [place] [address] WBC (Bld) [#/Vol] 6.8 10*3/uL Normal 3.6-10.7 [facility] Comment on above: Performed By: #### L AB233 #### Reservations Agent: BIANCA NICHOLS ([id number]) [facility]) [address] [place] [address] CBC panel Auto (Bld)on 05-06 Erythrocyte distribution width (RBC) [Ratio] 14.5 % 11.5 - 15.0 % [facility] Hematocrit (Bld) [Volume fraction] 36.0 % Low 40.0 - 52.0 % [facility] Hemoglobin (Bld) [Mass/Vol] 12.1 g/dL Low 13.0 - 18.0 g/dL [facility] Interpretation and review of laboratory results Abnormal [facility] MCH (RBC) [Entitic mass] 30.3 pg 26. 0 - 34.0 pg [facility] MCHC (RBC) [Mass/Vol] 33.6 % 30.5 - 36.0 % [facility] MCV (RBC) [Entitic vol] 90.2 fL 77.0 - 99.0 fL [facility] Platelet mean volume (Bld) [Entitic vol] 10.8 fL 9.0 - 12.7 fL [facility] Platelets (Bld) [#/Vol] 273 10*3/uL 140 - 440 10*3/uL [facility] RBC (Bld) [#/Vol] 3.99 10*6/uL Low 4.40 - 5.9 0 10*6/uL [facility] WBC (Bld) [#/Vol] 6.8 10*3/uL 3.6 - 10.7 10*3/uL [facility] - Chemistry and C hemistry - challengeon 05-06-2024 Glucose [Mass/Vol] 260 mg/dL High 70 - 100 mg/dL [facility] Glucose [Mass/Vol] 428 mg/dL High 70 - 100 mg/dL [facility] Glucose [Mass/Vol] 359 mg/dL High 70 - 100 mg/dL [facility] No Panel Informationon 05-06 Interpretation and review of laboratory results Abnormal [facility] Performed by: [facility], [address] [place] [address] CLIA ID: [id number] [facility] Interpretation and review of laboratory results Abnormal [facility] Performed by: [facility], [address] [place] [address] CLIA ID: [id number] [facility] Interpretation and review of laboratory results Abnormal [facility] Performed by: [facility], [address] [place] [address] CLIA ID: [id number] [facility] Nursing Noteon 05-06-2024 Nursing Note Patient requested discharge transportation be provided by his brother, who drives a wheelchair accessible van. Spoke with nurse at [facility] who was aware that patient was returning this evening and was agreeable to patient being transported by private vehicle. YASHIRA Hernandez'alonso Bedside RN called report. Patient transferred via everett lift to personal wheelchair and was escorted down to main entrance where his brother picked him up in van [facility] CALCULI ANALYSIS(STONE)on CALCULI COMPOSITION See Note [facility] Comment on above: Result Comment: Calc [...] composition determined by FTIR analysis. Performed By: [employer] [facility] [address] [place], [place] [id number] Radiology Transcriptionist: Otis Sweeney MD, PhD [place] Number: [id number] Performed By: #### L [id number] #### Reservations Agent: BIANCA NICHOLS ([phone]) [facility]) [address] [place] [address] CALCULI DESCRIPTION See Note Normal [facility] Comment on above: Result Comment: Spec imen consists of numerous brown and montano calculi fragments. The total weight is 2645 mg. Performed By: #### L [id number] #### Reservations Agent: BIANCA NICHOLS ([phone]) [facility]) [address] [place] [address] CALCULI MASS 2645 mg [facility] Comment on above: Performed By: #### L [id number] #### Reservations Agent: BIANCA NICHOLS ([id number]) [address] CULTURE ANAEROBICon 05-05-20 CULTURE ANAEROBIC ANAEROBIC CULTURE Reference No growth at 5 days [ S = SUSCEPTIBLE R = RESISTANT I = INTERMEDIATE S-DD = Susceptible-dose dependent NS = Non-susceptible NO = No Interpretation ] [facility] Comment on above: Performed By: #### L [id number] #### Reservations Agent: BIANCA NICHOLS ([id number]) [facility]) [address] [place] [address] CULTURE, AEROBIC BACTERIA WI TH GRAM STAINon [...] Non-susceptible NO = No Interpretation ] Normal [facility] Comment on above: Performed By: #### L AB294 #### Reservations Agent: BIANCA NICHOLS ([phone]) [address] FUNGAL CULTUREon 05-05-2024 FUNGAL CULTURE FUNGAL CULTURE (A) Reference BOLA PARAPSILOSIS Rare Bola parapsilosis (A) [ S = SUSCEPTIBLE R = RESISTANT I = INTERMEDIATE S-DD = Susceptible-dose dependent NS = Non-susceptible NO = No Interpretation ] Normal [facility] Comment on above: Performed By: #### L AB294 #### Reservations Agent: BIANCA NICHOLS ([phone]) [facility]) [address] [place] [address] IDNon 05-05-2024 IDN The patient is Moderately Stable - Low risk of patient condition declining or worsening The patient's goals for the shift include pain control The clinical goals for the shift include remain HDS this shift Over the shift, the patient did not make progress toward the following goals. Barriers to progression include none. Recommendations to address these barriers include none. Normal [facility] - Chemistry and C hemistry - challengeon 05-05-2024 Glucose [Mass/Vol] 176 mg/dL High 70 - 100 mg/dL [facility] Glucose [Mass/Vol] 166 mg/dL High 70 - 100 mg/dL [facility] Glucose [Mass/Vol] 236 mg/dL High 70 - 100 mg/dL [facility] MISCELLANEOUS SENDOUT TESTon 05-05-2024 RESULT See Comment Normal [facility] Comment on above: Result Comment: SOSA Barney COMMENTS: Antimicrobial Susceptibility - Fungal (Yeasts and Molds) Subarctic Limited test code [id number] Source: Tissue Body Site: Bladder Final Report Bola parapsilosis Organism identified by client Susceptibility Results Organism: Bola parapsilosis Amphotericin B Interpretation: NO INTERPRETATION HARINDER (ug/mL): 0.5 Anidulafungin Interpretation: SUSCEPTIBLE HARINDER (ug/mL): 0.25 Caspofungin Interpretation: SUSCEPTIBLE HARINDER (ug/mL): 0.5 Fluconazole Interpretation: SUSCEPTIBLE HARINDER (ug/mL): 1 Isavuconazole Interpretation: NO INTERPRETATION HARINDER (ug/mL): 0.016 Itraconazole Interpretation: NO INTERPRETATION HARINDER (ug/mL): 0.03 Micafungin Interpretation: SUSCEPTIBLE HARINDER (ug/mL): 2 Posaconazole Interpretation: NO INTERPRETATION HARINDER (ug/mL): 0.03 Rezafungin Interpretation: SUSCEPTIBLE HARINDER (ug/mL): 0.25 Voriconazole Interpretation: SUSCEPTIBLE HARINDER (ug/mL): 0.016 Testing performed by [employer] [facility], [place], [place]. Performed By: #### L AB233 #### Reservations Agent: BIANCA NICHOLS ([phone]) [facility] ([facility]) [address] [place] [address] No Panel Informationon 05-05 Interpretation and review of laboratory results Abnormal [facility] Performed by: [facility], [address] [place] [address] CLIA ID: [id number] [facility] There is no interpretation needed for this exam. IMAGING Interpretation and review of laboratory results Abnormal [facility] Performed by: [facility], [address] [place] [address] CLIA ID: [id number] [facility] Interpretation and review of laboratory results Abnormal [facility] Performed by: [facility], [address] [place] [address] CLIA ID: [id number] [facility] Nursing Noteon 05-05-2024 Nursing Note Belongings returned to patient bedside. Meal tray ordered Normal [facility] Nursing Note Spoke with the nurse Lauren from the facility pt came from. The nurse confirmed that pt did not have anything to eat after midnight and only sips of water with morning meds. See MAR for meds. Normal [facility] Op Noteon 05-05-2024 Op Note Jamie Mares [...] Ebl: Drains 6fr X 24cmJJ Santana 16 Czech Santana catheter Specimen: Bladder calculus for stone [...] removal. Joan Patel MD 05/06/24 5:11 PM [facility] 36on 05-04-2024 36 R/S patient for 06/14 at 8:30a, also contacted [facility] to confirm transportation [facility] 36 Name of Caller: Dax banks Contact Reason for Appointment: Reschedule 04/21/24 appointment Office Name: Interventional Pain Management [facility] Telephone Encounteron 2023 Department Chairperson Authentication Interface Message Text Called pt and discussed his MRI L spine results. He has SCI rehab follow up scheduled. Recommended Spine Surgery opinion. No change in clinical condition from last visit. Vaishali Pierre, DO Normal [facility] Department Chairperson Authentication Interface Message Text Called pt again. Staff at the SNF stated he was unable to come to the phone and asked for call back later in the day. Vaishali Pierre, DO Normal [facility] Telephone Encounteron 2023 Department Chairperson Authentication Interface Message Text Called pt and reached staff, but he was unable to come to the phone. Will try again tomorrow. Vaishali Pierre, DO Normal [facility] CBC W Auto Differential pane l (Bld)on 04-20-2024 Erythrocyte distribution width (RBC) [Ratio] 14.8 % 11.5 - 15.0 % [facility] Hematocrit (Bld) [Volume fraction] 34.8 % Low 40.0 - 52.0 % [facility] Hemoglobin (Bld) [Mass/Vol] 11.3 g/dL Low 13.0 - 18.0 g/dL [facility] Interpretation and review of laboratory results Abnormal [facility] IPF 7 [facility] MCH (RBC) [Entitic mass] 30.5 pg 26. 0 - 34.0 pg [facility] MCHC (RBC) [Mass/Vol] 32.5 % 30.5 - 36.0 % [facility] MCV (RBC) [Entitic vol] 94.1 fL 77.0 - 99.0 fL [facility] Platelet mean volume (Bld) [Entitic vol] 11.6 fL 9.0 - 12.7 fL [facility] Platelets (Bld) [#/Vol] 121 10*3/uL Low 140 - 440 10*3/uL [facility] RBC (Bld) [#/Vol] 3.70 10*6/uL Low 4.40 - 5.9 0 10*6/uL [facility] WBC (Bld) [#/Vol] 6.4 10*3/uL 3.6 - 10.7 10*3/uL [facility] Comprehensive metabolic 1998 panelon 04-20-2024 Albumin [Mass/Vol] 2.5 g/dL Low 3.5 - 5.0 g/dL [facility] ALP [Catalytic activity/Vol] 94 U/L 38 - 126 U/L [facility] ALT [Catalytic activity/Vol] 15 U/L 0 - 49 U/L [facility] Anion gap [Moles/Vol] 6 mmol/L 3 - 13 mmol/L [facility] AST [Catalytic activity/Vol] 19 U/L 15 - 46 U/L [facility] Bilirubin [Mass/Vol] 0.4 mg/dL 0.2 - 1 .3 mg/dL [facility] Calcium [Mass/Vol] 7.6 mg/dL Low 8.4 - 10. 4 mg/dL [facility] Chloride [Moles/Vol] 108 mmol/L High 98 - 10 7 mmol/L [facility] CO2 [Moles/Vol] 23 mmol/L 22 - 30 mmol/L [facility] Creatinine [Mass/Vol] 0.44 mg/dL Low 0.66 - 1.25 mg/dL [facility] [facility] GFR/1.73 sq M.predicted MDRD (S/P/Bld) [Vol rate/Area] - PINF [facility] Glucose [Mass/Vol] 284 mg/dL High 70 - 100 mg/dL [facility] Interpretation and review of laboratory results Abnormal [facility] Potassium [Moles/Vol] 3.8 mmol/L 3.5 - 5.1 mmol/L [facility] Protein [Mass/Vol] 5.6 g/dL Low 6.3 - 8.2 g/dL [facility] Sodium [Moles/Vol] 138 mmol/L 135 - 145 mmol/L [facility] Urea nitrogen [Mass/Vol] 14 mg/dL 9 - 20 mg/dL [facility] Laboratory - Chemistry and C hemistry - challengeon 04-20-2024 Glucose [Mass/Vol] 282 mg/dL High 70 - 100 mg/dL [facility] Glucose [Mass/Vol] 398 mg/dL High 70 - 100 mg/dL [facility] Glucose [Mass/Vol] 323 mg/dL High 70 - 100 mg/dL [facility] Magnesium [Mass/Vol] 1.8 mg/dL 1.6 - 2 .3 mg/dL [facility] Laboratory - Hematology and Cell countson 04-20-2024 Eosinophils (Bld) [#/Vol] 0.3 10*3/uL 0.0 - 0.5 10*3/uL [facility] Eosinophils/100 WBC (Bld) 5 % 0 - 6 % [facility] Lymphocytes (Bld) [#/Vol] 2.0 10*3/uL 1.0 - 4.3 10*3/uL [facility] Lymphocytes/100 WBC (Bld) 32 % 15 - 45 % [facility] Monocytes (Bld) [#/Vol] 0.6 10*3/uL 0.0 - 0.9 10*3/uL [facility] Monocytes/100 WBC (Bld) 10 % 5 - 13 % [facility] Neutrophils (Bld) [#/Vol] 3.4 10*3/uL 1.8 - 7.5 10*3/uL [facility] RBC morphology finding Nom (Bld) Normal [facility] Segmented neutrophils/100 WBC (Bld) 53 % 38 - 82 % [facility] Laboratory - Microbiology an d Antimicrobial susceptibilityon 04-20-2024 SARS-CoV-2 (COVID-19) Ag IA.rapid Ql (Resp) Negative Negative [facility] No Panel Informationon 04-20 Interpretation and review of laboratory results Abnormal [facility] [place] CV EPIPHANY [facility] Interpretation and review of laboratory results Abnormal [facility] [facility] Radiology Study observation (narrative) [facility] alth Interpretation and review of laboratory results Abnormal [facility] Eosinophils Manual 5 High 0 - 1 [facility] Interpretation and review of laboratory results Abnormal [facility] Lymphocytes Manual 32 [facility] Monocytes Manual 10 [facility] alth Neutrophils Manual 53 [facility] Interpretation and review of laboratory results Normal [facility] No Panel InformationOrdered By: Jax Wiggins on 04-20-2024 P [place] 10 degrees [facility] [employer] Work Phone: AK Interval 159 ms [facility] [employer] Work Phone: QRS [place] 28 degrees [facility] [employer] Work Phone: QRSD Interval 96 ms [facility] [employer] Work Phone: QT Interval 426 ms [facility] [employer] Work Phone: QTC Interval 477 ms [facility] Work Phone: T Wave [place] 28 degrees [facility] [employer] Work Phone: [facility] [employer] Work Phone: No Panel InformationOrdered By: Marie Howard on 04-20-2024 [facility] [employer] Work Phone: Phosphate [Moles/Vol]on 04-04 Phosphate [Mass/Vol] 2.8 mg/dL 2.5 - 4 .5 mg/dL [facility] [employer] SARS-CoV-2 (COVID-19) Ag IA. rapid Ql (Resp)on 04-20-2024 Interpretation and review of laboratory results Normal [facility] [employer] Vital signsOrdered By: Seth Wiggins on 04-20-2024 Heart rate 75 /min bpm [facility] [employer] Work Phone: CBC W Auto Differential pane l (Bld)on 04-19-2024 Erythrocyte distribution width (RBC) [Ratio] 14.8 % 11.5 - 15.0 % [facility] [employer] Hematocrit (Bld) [Volume fraction] 35.0 % Low 40.0 - 52.0 % [facility] Hemoglobin (Bld) [Mass/Vol] 11.6 g/dL Low 13.0 - 18.0 g/dL [facility] [employer] IPF 8 [facility] [employer] MCH (RBC) [Entitic mass] 30.6 pg 26. 0 - 34.0 pg [facility] [employer] MCHC (RBC) [Mass/Vol] 33.1 % 30.5 - 36.0 % [facility] MCV (RBC) [Entitic vol] 92.3 fL 77.0 - 99.0 fL [facility] [employer] Platelet mean volume (Bld) [Entitic vol] 11.6 fL 9.0 - 12.7 fL [facility] [employer] Platelets (Bld) [#/Vol] 88 10*3/uL Low 140 - 440 10*3/uL [facility] [employer] RBC (Bld) [#/Vol] 3.79 10*6/uL Low 4.40 - 5.9 0 10*6/uL [facility] [employer] WBC (Bld) [#/Vol] 9.2 10*3/uL 3.6 - 10.7 10*3/uL [facility] Comprehensive metabolic 1998 panelon 04-19-2024 Albumin [Mass/Vol] 2.7 g/dL Low 3.5 - 5.0 g/dL [facility] [employer] ALP [Catalytic activity/Vol] 119 U/L 38 - 126 U/L [facility] [employer] ALT [Catalytic activity/Vol] 16 U/L 0 - 49 U/L [facility] Anion gap [Moles/Vol] 5 mmol/L 3 - 13 mmol/L [facility] AST [Catalytic activity/Vol] 19 U/L 15 - 46 U/L [facility] Bilirubin [Mass/Vol] 0.6 mg/dL 0.2 - 1 .3 mg/dL [facility] Calcium [Mass/Vol] 7.9 mg/dL Low 8.4 - 10. 4 mg/dL [facility] Chloride [Moles/Vol] 107 mmol/L 98 - 10 7 mmol/L [facility] CO2 [Moles/Vol] 26 mmol/L 22 - 30 mmol/L [facility] Creatinine [Mass/Vol] 0.44 mg/dL Low 0.66 - 1.25 mg/dL [facility] GFR/1.73 sq M.predicted MDRD (S/P/Bld) [Vol rate/Area] - PINF [facility] Glucose [Mass/Vol] 153 mg/dL High 70 - 100 mg/dL [facility] Interpretation and review of laboratory results Abnormal [facility] Potassium [Moles/Vol] 3.5 mmol/L 3.5 - 5.1 mmol/L [facility] Protein [Mass/Vol] 6.0 g/dL Low 6.3 - 8.2 g/dL [facility] Sodium [Moles/Vol] 138 mmol/L 135 - 145 mmol/L [facility] Urea nitrogen [Mass/Vol] 14 mg/dL 9 - 20 mg/dL [facility] Laboratory - Chemistry and C hemistry - challengeon 04-19-2024 Glucose [Mass/Vol] 305 mg/dL High 70 - 100 mg/dL [facility] Glucose [Mass/Vol] 232 mg/dL High 70 - 100 mg/dL [facility] Glucose [Mass/Vol] 163 mg/dL High 70 - 100 mg/dL [facility] Glucose [Mass/Vol] 155 mg/dL High 70 - 100 mg/dL [facility] Magnesium [Mass/Vol] 1.8 mg/dL 1.6 - 2 .3 mg/dL [facility] Laboratory - Hematology and Cell countson 04-19-2024 Band form neutrophils (Bld) [#/Vol] 0.1 10*3/uL High NINF - 0.0 10*3/uL [facility] Band form neutrophils/100 WBC (Bld) 1 % High NINF - 0 % [facility] Basophils (Bld) [#/Vol] 0.1 10*3/uL 0.0 - 0.2 10*3/uL [facility] Basophils/100 WBC (Bld) 1 % 0 - 2 % [facility] Eosinophils (Bld) [#/Vol] 0.4 10*3/uL 0.0 - 0.5 10*3/uL [facility] Eosinophils/100 WBC (Bld) 4 % 0 - 6 % [facility] Lymphocytes (Bld) [#/Vol] 1.2 10*3/uL 1.0 - 4.3 10*3/uL [facility] Lymphocytes/100 WBC (Bld) 13 % Low 15 - 45 % [facility] Monocytes (Bld) [#/Vol] 0.7 10*3/uL 0.0 - 0.9 10*3/uL [facility] Monocytes/100 WBC (Bld) 8 % 5 - 13 % [facility] Neutrophils (Bld) [#/Vol] 6.7 10*3/uL 1.8 - 7.5 10*3/uL [facility] RBC morphology finding Nom (Bld) abnormal [facility] Segmented neutrophils/100 WBC (Bld) 72 % 38 - 82 % [facility] Stomatocytes LM Ql (Bld) Slight Abnormal (none) [facility] Variant lymphocytes (Bld) [#/Vol] 0.1 10*3/uL High NINF - 0.0 10*3/uL [facility] Variant lymphocytes/100 WBC (Bld) 1 % High NINF - 0 % [facility] No Panel Informationon 04-19 Interpretation and review of laboratory results Abnormal [facility] Interpretation and review of laboratory results Abnormal [facility] Interpretation and review of laboratory results Abnormal [facility] Interpretation and review of laboratory results Abnormal [facility] Atypical Lymphocytes Manual 1 [facility] Bands Manual 1 [facility] Basophils Manual 1 [facility] Eosinophils Manual 4 High 0 - 1 [facility] Interpretation and review of laboratory results Abnormal [facility] Lymphocytes Manual 13 [facility] Monocytes Manual 8 [facility] alth Neutrophils Manual 71 [facility] Interpretation and review of laboratory results Normal [facility] Phosphate [Moles/Vol]on 04-04 Phosphate [Mass/Vol] 3.2 mg/dL 2.5 - 4 .5 mg/dL [facility] Bacteria identified Cx Nom ( Bld)on 04-18-2024 Interpretation and review of laboratory results Abnormal [facility] [place] Bacteria identified Cx Nom ( Bld)Ordered By: Yani Martínez on 04-18-2024 Interpretation and review of laboratory results Abnormal [facility] [place] [facility] CBC W Auto Differential pane l (Bld)Ordered By: Gricelda Eduardo on 04-18-2024 Erythrocyte distribution width (RBC) [Ratio] 15.0 % 11.5 - 15.0 % [facility] Hematocrit (Bld) [Volume fraction] 36.6 % Low 40.0 - 52.0 % [facility] Hemoglobin (Bld) [Mass/Vol] 12.1 g/dL Low 13.0 - 18.0 g/dL [facility] Interpretation and review of laboratory results Abnormal [facility] IPF 9 [facility] MCH (RBC) [Entitic mass] 30.6 pg 26. 0 - 34.0 pg [facility] MCHC (RBC) [Mass/Vol] 33.1 % 30.5 - 36.0 % [facility] MCV (RBC) [Entitic vol] 92.7 fL 77.0 - 99.0 fL [facility] Platelet mean volume (Bld) [Entitic vol] 11.7 fL 9.0 - 12.7 fL [facility] Platelets (Bld) [#/Vol] 79 10*3/uL Low 140 - 440 10*3/uL [facility] RBC (Bld) [#/Vol] 3.95 10*6/uL Low 4.40 - 5.9 0 10*6/uL [facility] WBC (Bld) [#/Vol] 8.4 10*3/uL 3.6 - 10.7 10*3/uL [facility] Comprehensive metabolic 1998 panelon 04-18-2024 Albumin [Mass/Vol] 2.9 g/dL Low 3.5 - 5.0 g/dL [facility] ALP [Catalytic activity/Vol] 123 U/L 38 - 126 U/L [facility] ALT [Catalytic activity/Vol] 18 U/L 0 - 49 U/L [facility] Anion gap [Moles/Vol] 7 mmol/L 3 - 13 mmol/L [facility] AST [Catalytic activity/Vol] 18 U/L 15 - 46 U/L [facility] Bilirubin [Mass/Vol] 0.8 mg/dL 0.2 - 1 .3 mg/dL [facility] Calcium [Mass/Vol] 7.8 mg/dL Low 8.4 - 10. 4 mg/dL [facility] Chloride [Moles/Vol] 105 mmol/L 98 - 10 7 mmol/L [facility] CO2 [Moles/Vol] 27 mmol/L 22 - 30 mmol/L [facility] Creatinine [Mass/Vol] 0.51 mg/dL Low 0.66 - 1.25 mg/dL [facility] GFR/1.73 sq M.predicted MDRD (S/P/Bld) [Vol rate/Area] - PINF [facility] Glucose [Mass/Vol] 74 mg/dL 70 - 100 mg/dL [facility] Potassium [Moles/Vol] 3.1 mmol/L Low 3.5 - 5.1 mmol/L [facility] Protein [Mass/Vol] 6.0 g/dL Low 6.3 - 8.2 g/dL [facility] Sodium [Moles/Vol] 140 mmol/L 135 - 145 mmol/L [facility] Urea nitrogen [Mass/Vol] 15 mg/dL 9 - 20 mg/dL [facility] Laboratory - Chemistry and C hemistry - challengeon 04-18-2024 Glucose [Mass/Vol] 264 mg/dL High 70 - 100 mg/dL [facility] Glucose [Mass/Vol] 135 mg/dL High 70 - 100 mg/dL [facility] Glucose [Mass/Vol] 144 mg/dL High 70 - 100 mg/dL [facility] Magnesium [Mass/Vol] 1.5 mg/dL Low 1.6 - 2 .3 mg/dL [facility] Glucose [Mass/Vol] 78 mg/dL 70 - 100 mg/dL [facility] Laboratory - Microbiology an d Antimicrobial susceptibilityon 04-18-2024 Bacteria identified Cx Nom (Bld) Morganella morganii Critically abnormal [facility] Bacteria identified Cx Nom (Bld) Providencia stuartii Critically abnormal [facility] Laboratory - Microbiology an d Antimicrobial susceptibilityOrdered By: Yani Martínez on 04-18-2024 Bacteria identified Cx Nom (Bld) Proteus mirabilis Critically abnormal [facility] Bacteria identified Cx Nom (Bld) Providencia stuartii Critically abnormal [facility] Bacteria identified Cx Nom (Bld) Morganella morganii Critically abnormal [facility] Manual differential performe d Ql (Bld)on 04-18-2024 Anisocytosis Ql (Bld) Slight Abnormal (none) [facility] Cells Counted Total (Bld) [#] 100 {cells} [facility] Differential Method Manual differential performed [facility] Eosinophils (Bld) [#/Vol] 0.1 10*3/uL 0.0 - 0.5 10*3/uL [facility] Eosinophils Manual 1 0 - 1 [facility] Eosinophils/100 WBC (Bld) 1 % 0 - 6 % [facility] Hypochromia Ql (Bld) Slight Abnormal (none) [facility] Interpretation and review of laboratory results Abnormal [facility] Leukocyte morphology finding Nom (Bld) Normal [facility] Lymphocytes (Bld) [#/Vol] 1.1 10*3/uL 1.0 - 4.3 10*3/uL [facility] Lymphocytes Manual 13 [facility] Lymphocytes/100 WBC (Bld) 13 % Low 15 - 45 % [facility] Monocytes (Bld) [#/Vol] 0.7 10*3/uL 0.0 - 0.9 10*3/uL [facility] Monocytes Manual 8 [facility] alth Monocytes/100 WBC (Bld) 8 % 5 - 13 % [facility] Neutrophils (Bld) [#/Vol] 6.6 10*3/uL 1.8 - 7.0 10*3/uL [facility] Neutrophils Manual 78 [facility] Platelet morphology finding Nom (Bld) Normal [facility] Segmented neutrophils/100 WBC (Bld) 78 % 38 - 82 % [facility] WBC corrected for nucl RBC (Bld) [#/Vol] 8.4 10*3/uL 3.6 - 10.7 10*3/uL [facility] No Panel Informationon 04-18 Interpretation and review of laboratory results Abnormal [facility] [place] Interpretation and review of laboratory results Abnormal [facility] [place] Interpretation and review of laboratory results Abnormal [facility] [place] Interpretation and review of laboratory results Abnormal [facility] Interpretation and review of laboratory results Normal [facility] [place] Phosphate [Moles/Vol]on 04-04 Interpretation and review of laboratory results Normal [facility] Phosphate [Mass/Vol] 3.8 mg/dL 2.5 - 4 .5 mg/dL [facility] Bacteria identified Cx Nom ( U)Ordered By: Darya Clark on 04-17-2024 Interpretation and review of laboratory results Abnormal [facility] CBC W Auto Differential pane l (Bld)on 04-17-2024 Basophils (Bld) [#/Vol] 0.0 10*3/uL 0.0 - 0.2 10*3/uL [facility] Basophils/100 WBC (Bld) 0.1 % 0.0 - 2.0 % [facility] Eosinophils (Bld) [#/Vol] 0.1 10*3/uL 0.0 - 0.5 10*3/uL [facility] Eosinophils/100 WBC (Bld) 1.4 % 0.0 - 6.0 % [facility] Erythrocyte distribution width (RBC) [Ratio] 14.9 % 11.5 - 15.0 % [facility] Hematocrit (Bld) [Volume fraction] 35.4 % Low 40.0 - 52.0 % [facility] Hemoglobin (Bld) [Mass/Vol] 11.5 g/dL Low 13.0 - 18.0 g/dL [facility] Immature granulocytes (Bld) [#/Vol] 0.0 10*3/uL NINF - 0.1 10*3/uL [facility] Immature granulocytes/100 WBC (Bld) 0.3 % 0.0 - 2.0 % [facility] Interpretation and review of laboratory results Abnormal [facility] IPF 6 [facility] Lymphocytes (Bld) [#/Vol] 1.3 10*3/uL 1.0 - 4.3 10*3/uL [facility] Lymphocytes/100 WBC (Bld) 16.8 % 15.0 - 45.0 % [facility] MCH (RBC) [Entitic mass] 30.0 pg 26. 0 - 34.0 pg [facility] MCHC (RBC) [Mass/Vol] 32.5 % 30.5 - 36.0 % [facility] MCV (RBC) [Entitic vol] 92.4 fL 77.0 - 99.0 fL [facility] Monocytes (Bld) [#/Vol] 0.4 10*3/uL 0.0 - 0.9 10*3/uL [facility] Monocytes/100 WBC (Bld) 5.5 % 5.0 - 13.0 % [facility] Neutrophils (Bld) [#/Vol] 6.0 10*3/uL 1.8 - 7.5 10*3/uL [facility] Neutrophils/100 WBC (Bld) 75.9 % 38.0 - 82.0 % [facility] Nucleated RBC/100 WBC (Bld) [Ratio] 0.0 % [facility] Platelet mean volume (Bld) [Entitic vol] 11.6 fL 9.0 - 12.7 fL [facility] Platelets (Bld) [#/Vol] 77 10*3/uL Low 140 - 440 10*3/uL [facility] RBC (Bld) [#/Vol] 3.83 10*6/uL Low 4.40 - 5.9 0 10*6/uL [facility] WBC (Bld) [#/Vol] 7.9 10*3/uL 3.6 - 10.7 10*3/uL [facility] Comprehensive metabolic 1998 panelon 04-17-2024 Albumin [Mass/Vol] 2.6 g/dL Low 3.5 - 5.0 g/dL [facility] ALP [Catalytic activity/Vol] 128 U/L High 38 - 126 U/L [facility] ALT [Catalytic activity/Vol] 22 U/L 0 - 49 U/L [facility] Anion gap [Moles/Vol] 5 mmol/L 3 - 13 mmol/L [facility] AST [Catalytic activity/Vol] 22 U/L 15 - 46 U/L [facility] Bilirubin [Mass/Vol] 0.7 mg/dL 0.2 - 1 .3 mg/dL [facility] Calcium [Mass/Vol] 7.9 mg/dL Low 8.4 - 10. 4 mg/dL [facility] Chloride [Moles/Vol] 107 mmol/L 98 - 10 7 mmol/L [facility] CO2 [Moles/Vol] 23 mmol/L 22 - 30 mmol/L [facility] Creatinine [Mass/Vol] 0.58 mg/dL Low 0.66 - 1.25 mg/dL [facility] GFR/1.73 sq M.predicted MDRD (S/P/Bld) [Vol rate/Area] - PINF [facility] Glucose [Mass/Vol] 144 mg/dL High 70 - 100 mg/dL [facility] Interpretation and review of laboratory results Abnormal [facility] Potassium [Moles/Vol] 3.2 mmol/L Low 3.5 - 5.1 mmol/L [facility] Protein [Mass/Vol] 5.6 g/dL Low 6.3 - 8.2 g/dL [facility] Sodium [Moles/Vol] 135 mmol/L 135 - 145 mmol/L [facility] Urea nitrogen [Mass/Vol] 23 mg/dL High 9 - 20 mg/dL [facility] Laboratory - Chemistry and C hemistry - challengeon 04-17-2024 Glucose [Mass/Vol] 200 mg/dL High 70 - 100 mg/dL [facility] Glucose [Mass/Vol] 235 mg/dL High 70 - 100 mg/dL [facility] Glucose [Mass/Vol] 200 mg/dL High 70 - 100 mg/dL [facility] Glucose [Mass/Vol] 104 mg/dL High 70 - 100 mg/dL [facility] Magnesium [Mass/Vol] 1.6 mg/dL 1.6 - 2 .3 mg/dL [facility] Laboratory - Microbiology an d Antimicrobial susceptibilityOrdered By: Darya Clark on 04-17-2024 Bacteria identified Cx Nom (U) Normal urogenital gosia present [facility] Bacteria identified Cx Nom (U) 50,000-90,000 CFU/mL Providencia stuartii Abnormal [facility] No Panel Informationon 04-17 Interpretation and review of laboratory results Abnormal [facility] [place] Interpretation and review of laboratory results Abnormal [facility] [place] Interpretation and review of laboratory results Abnormal [facility] [place] Interpretation and review of laboratory results Abnormal [facility] [place] Interpretation and review of laboratory results Normal [facility] Phosphate [Moles/Vol]on 04-04 Phosphate [Mass/Vol] 2.8 mg/dL 2.5 - 4 .5 mg/dL [facility] CBC W Auto Differential pane l (Bld)Ordered By: Jj North on 04-16-2024 Erythrocyte distribution width (RBC) [Ratio] 15.2 % High 11.5 - 15.0 % [facility] Hematocrit (Bld) [Volume fraction] 37.2 % Low 40.0 - 52.0 % [facility] Hemoglobin (Bld) [Mass/Vol] 12.0 g/dL Low 13.0 - 18.0 g/dL [facility] IPF 8 [facility] MCH (RBC) [Entitic mass] 30.7 pg 26. 0 - 34.0 pg [facility] MCHC (RBC) [Mass/Vol] 32.3 % 30.5 - 36.0 % [facility] MCV (RBC) [Entitic vol] 95.1 fL 77.0 - 99.0 fL [facility] Platelet mean volume (Bld) [Entitic vol] 12.0 fL 9.0 - 12.7 fL [facility] Platelets (Bld) [#/Vol] 76 10*3/uL Low 140 - 440 10*3/uL [facility] RBC (Bld) [#/Vol] 3.91 10*6/uL Low 4.40 - 5.9 0 10*6/uL [facility] WBC (Bld) [#/Vol] 11.9 10*3/uL High 3.6 - 10.7 10*3/uL [facility] Comprehensive metabolic 1998 panelon 04-16-2024 Albumin [Mass/Vol] 2.8 g/dL Low 3.5 - 5.0 g/dL [facility] ALP [Catalytic activity/Vol] 130 U/L High 38 - 126 U/L [facility] ALT [Catalytic activity/Vol] 26 U/L 0 - 49 U/L [facility] Anion gap [Moles/Vol] 6 mmol/L 3 - 13 mmol/L [facility] AST [Catalytic activity/Vol] 37 U/L 15 - 46 U/L [facility] Bilirubin [Mass/Vol] 0.9 mg/dL 0.2 - 1 .3 mg/dL [facility] Calcium [Mass/Vol] 8.2 mg/dL Low 8.4 - 10. 4 mg/dL [facility] Chloride [Moles/Vol] 105 mmol/L 98 - 10 7 mmol/L [facility] CO2 [Moles/Vol] 25 mmol/L 22 - 30 mmol/L [facility] Creatinine [Mass/Vol] 0.70 mg/dL 0.66 - 1.25 mg/dL [facility] GFR/1.73 sq M.predicted MDRD (S/P/Bld) [Vol rate/Area] - PINF [facility] Glucose [Mass/Vol] 315 mg/dL High 70 - 100 mg/dL [facility] Interpretation and review of laboratory results Abnormal [facility] Potassium [Moles/Vol] 4.3 mmol/L 3.5 - 5.1 mmol/L [facility] Protein [Mass/Vol] 6.0 g/dL Low 6.3 - 8.2 g/dL [facility] Sodium [Moles/Vol] 137 mmol/L 135 - 145 mmol/L [facility] Urea nitrogen [Mass/Vol] 30 mg/dL High 9 - 20 mg/dL [facility] Laboratory - Chemistry and C hemistry - challengeon 04-16-2024 Glucose [Mass/Vol] 253 mg/dL High 70 - 100 mg/dL [facility] Glucose [Mass/Vol] 307 mg/dL High 70 - 100 mg/dL [facility] Glucose [Mass/Vol] 333 mg/dL High 70 - 100 mg/dL [facility] Glucose [Mass/Vol] 323 mg/dL High 70 - 100 mg/dL [facility] Magnesium [Mass/Vol] 2.0 mg/dL 1.6 - 2 .3 mg/dL [facility] Laboratory - Coagulationon 0 04-16-2024 aPTT Coag (PPP) [Time] 25.4 s 20.0 - 30.5 s [facility] INR Coag (PPP) [Relative time] 1.0 {INR} 0.9 - 1.1 [facility] PT Coag (Bld) [Time] 10.9 s 9.0 - 1 2.0 s [facility] Laboratory - Drug toxicology on 04-16-2024 Vancomycin [Mass/Vol] 12.3 ug/mL Low 15.0 - 20.0 ug/mL [facility] Laboratory - Hematology and Cell countson 04-16-2024 Anisocytosis Ql (Bld) Rare Abnormal (none) [facility] Band form neutrophils (Bld) [#/Vol] 0.2 10*3/uL High NINF - 0.0 10*3/uL [facility] Band form neutrophils/100 WBC (Bld) 2 % High NINF - 0 % [facility] [place] cells LM Ql (Bld) Slight Abnormal (none) [facility] Lymphocytes (Bld) [#/Vol] 0.5 10*3/uL Low 1.0 - 4.3 10*3/uL [facility] Lymphocytes/100 WBC (Bld) 4 % Low 15 - 45 % [facility] Monocytes (Bld) [#/Vol] 0.1 10*3/uL 0.0 - 0.9 10*3/uL [facility] Monocytes/100 WBC (Bld) 1 % Low 5 - 13 % S [facility] Neutrophils (Bld) [#/Vol] 11.3 10*3/uL High 1.8 - 7.5 10*3/uL [facility] Ovalocytes LM Ql (Bld) Rare Abnormal (none) [facility] Poikilocytosis LM Ql (Bld) Slight Abnormal (none) [facility] RBC morphology finding Nom (Bld) abnormal [facility] Segmented neutrophils/100 WBC (Bld) 93 % High 38 - 82 % [facility] No Panel Informationon 04-16 Interpretation and review of laboratory results Abnormal [facility] Interpretation and review of laboratory results Abnormal [facility] Interpretation and review of laboratory results Normal [facility] Interpretation and review of laboratory results Abnormal [facility] Interpretation and review of laboratory results Abnormal [facility] Health Bands Manual 2 [facility] Health Lymphocytes Manual 4 [facility] Monocytes Manual 1 [facility] alth Neutrophils Manual 96 [facility] Interpretation and review of laboratory results Abnormal [facility] Interpretation and review of laboratory results Normal [facility] No Panel InformationOrdered By: Jj North on 04-16-2024 Interpretation and review of laboratory results Abnormal [facility] Phosphate [Moles/Vol]on 04-04 Phosphate [Mass/Vol] 2.7 mg/dL 2.5 - 4 .5 mg/dL [facility] CBC W Auto Differential pane l (Bld)Ordered By: Dawood Juan on 04-15-2024 Erythrocyte distribution width (RBC) [Ratio] 14.9 % 11.5 - 15.0 % [facility] Hematocrit (Bld) [Volume fraction] 36.2 % Low 40.0 - 52.0 % [facility] Hemoglobin (Bld) [Mass/Vol] 11.9 g/dL Low 13.0 - 18.0 g/dL [facility] Interpretation and review of laboratory results Abnormal [facility] IPF 5 [facility] MCH (RBC) [Entitic mass] 30.9 pg 26. 0 - 34.0 pg [facility] MCHC (RBC) [Mass/Vol] 32.9 % 30.5 - 36.0 % [facility] MCV (RBC) [Entitic vol] 94.0 fL 77.0 - 99.0 fL [facility] Platelet mean volume (Bld) [Entitic vol] 10.8 fL 9.0 - 12.7 fL [facility] Platelets (Bld) [#/Vol] 107 10*3/uL Low 140 - 440 10*3/uL [facility] RBC (Bld) [#/Vol] 3.85 10*6/uL Low 4.40 - 5.9 0 10*6/uL [facility] WBC (Bld) [#/Vol] 11.2 10*3/uL High 3.6 - 10.7 10*3/uL [facility] CBC W Auto Differential pane l (Bld)Ordered By: Benigno Guerrier on 04-15-2024 Erythrocyte distribution width (RBC) [Ratio] 14.8 % 11.5 - 15.0 % [facility] Hematocrit (Bld) [Volume fraction] 39.1 % Low 40.0 - 52.0 % [facility] Hemoglobin (Bld) [Mass/Vol] 12.4 g/dL Low 13.0 - 18.0 g/dL [facility] Interpretation and review of laboratory results Abnormal [facility] IPF 5 [facility] MCH (RBC) [Entitic mass] 30.8 pg 26. 0 - 34.0 pg [facility] MCHC (RBC) [Mass/Vol] 31.7 % 30.5 - 36.0 % [facility] MCV (RBC) [Entitic vol] 97.0 fL 77.0 - 99.0 fL [facility] Platelet mean volume (Bld) [Entitic vol] 10.9 fL 9.0 - 12.7 fL [facility] Platelets (Bld) [#/Vol] 117 10*3/uL Low 140 - 440 10*3/uL [facility] RBC (Bld) [#/Vol] 4.03 10*6/uL Low 4.40 - 5.9 0 10*6/uL [facility] WBC (Bld) [#/Vol] 5.4 10*3/uL 3.6 - 10.7 10*3/uL [facility] Comprehensive metabolic 1998 panelon 04-15-2024 Albumin [Mass/Vol] 2.6 g/dL Low 3.5 - 5.0 g/dL [facility] ALP [Catalytic activity/Vol] 168 U/L High 38 - 126 U/L [facility] ALT [Catalytic activity/Vol] 34 U/L 0 - 49 U/L [facility] Anion gap [Moles/Vol] 10 mmol/L 3 - 13 mmol/L [facility] AST [Catalytic activity/Vol] 36 U/L 15 - 46 U/L [facility] Bilirubin [Mass/Vol] 1.1 mg/dL 0.2 - 1 .3 mg/dL [facility] Calcium [Mass/Vol] 7.9 mg/dL Low 8.4 - 10. 4 mg/dL [facility] Chloride [Moles/Vol] 105 mmol/L 98 - 10 7 mmol/L [facility] CO2 [Moles/Vol] 19 mmol/L Low 22 - 30 mmol/L [facility] Creatinine [Mass/Vol] 1.01 mg/dL 0.66 - 1.25 mg/dL [facility] GFR/1.73 sq M.predicted MDRD (S/P/Bld) [Vol rate/Area] 84.1 mL/min/{1.73_m2} - PINF [facility] th Glucose [Mass/Vol] 286 mg/dL High 70 - 100 mg/dL [facility] Interpretation and review of laboratory results Abnormal [facility] Potassium [Moles/Vol] 3.6 mmol/L 3.5 - 5.1 mmol/L [facility] Protein [Mass/Vol] 5.5 g/dL Low 6.3 - 8.2 g/dL [facility] Sodium [Moles/Vol] 135 mmol/L 135 - 145 mmol/L [facility] Urea nitrogen [Mass/Vol] 25 mg/dL High 9 - 20 mg/dL [facility] Laboratory - Chemistry and C hemistry - challengeon 04-15-2024 Glucose [Mass/Vol] 390 mg/dL High 70 - 100 mg/dL [facility] Glucose [Mass/Vol] 342 mg/dL High 70 - 100 mg/dL [facility] Average glucose Estimated from glycated hemoglobin (Bld) [Mass/Vol] 134 mg/dL [facility] Glucose [Mass/Vol] 287 mg/dL High 70 - 100 mg/dL [facility] Lactate [Moles/Vol] 2.0 mmol/L 0.7 - 2. 0 mmol/L [facility] Procalcitonin [Mass/Vol] 27.06 ng/mL High 0.0 0 - 0.09 ng/mL [facility] Glucose [Mass/Vol] 285 mg/dL High 70 - 100 mg/dL [facility] Lactate [Moles/Vol] 3.6 mmol/L High 0.7 - 2. 0 mmol/L [facility] Magnesium [Mass/Vol] 1.7 mg/dL 1.6 - 2 .3 mg/dL [facility] Laboratory - Drug toxicology on 04-15-2024 Vancomycin [Mass/Vol] 10.8 ug/mL Low 15.0 - 20.0 ug/mL [facility] Laboratory - Hematology and Cell countson 04-15-2024 HbA1c (Bld) [Mass fraction] 6.3 % High NINF - 5.7 % [facility] Band form neutrophils (Bld) [#/Vol] 2.6 10*3/uL High NINF - 0.0 10*3/uL [facility] Band form neutrophils/100 WBC (Bld) 23 % High NINF - 0 % [facility] [place] cells LM Ql (Bld) Slight Abnormal (none) [facility] Lymphocytes (Bld) [#/Vol] 0.1 10*3/uL Low 1.0 - 4.3 10*3/uL [facility] Lymphocytes/100 WBC (Bld) 1 % Low 15 - 45 % [facility] Metamyelocytes (Bld) [#/Vol] 0.1 10*3/uL High NINF - 0.0 10*3/uL [facility] Metamyelocytes/100 WBC (Bld) 1 % High NINF - 0 % [facility] Monocytes (Bld) [#/Vol] 0.1 10*3/uL 0.0 - 0.9 10*3/uL [facility] Monocytes/100 WBC (Bld) 1 % Low 5 - 13 % [facility] Neutrophils (Bld) [#/Vol] 11.0 10*3/uL High [...] 1 % 0 - 2 % [facility] [place] cells LM Ql (Bld) Slight Abnormal (none) [facility] Lymphocytes (Bld) [#/Vol] 0.1 10*3/uL Low 1.0 - 4.3 10*3/uL [facility] Lymphocytes/100 WBC (Bld) 1 % Low 15 - 45 % [facility] Metamyelocytes (Bld) [#/Vol] 0.1 10*3/uL High NINF - 0.0 10*3/uL [facility] Metamyelocytes/100 WBC (Bld) 1 % High NINF - 0 % [facility] Monocytes (Bld) [#/Vol] 0.0 10*3/uL 0.0 - 0.9 10*3/uL [facility] Monocytes/100 WBC (Bld) 0 % Low 5 - 13 % [facility] Neutrophils (Bld) [#/Vol] 5.2 10*3/uL 1.8 - 7.5 10*3/uL [facility] Poikilocytosis LM Ql (Bld) Rare Abnormal (none) [facility] RBC morphology finding Nom (Bld) abnormal [facility] Segmented neutrophils/100 WBC (Bld) 74 % 38 - 82 % [facility] MRSA DNA JOSSY+probe Ql (Nose) on 04-15-2024 Interpretation and review of laboratory results Abnormal [facility] mecA gene Not detected Not Detected [facility] Staphylococcus aureus Detected Abnormal Not Detected [facility] [place] No Panel Informationon 04-15 Interpretation and review of laboratory results Abnormal [facility] [place] Interpretation and review of laboratory results Abnormal [facility] [place] Interpretation and review of laboratory results Abnormal [facility] Interpretation and review of laboratory results Abnormal [facility] [place] [facility] Interpretation and review of laboratory results Normal [facility] Interpretation and review of laboratory results Abnormal [facility] Health Bands Manual 23 [facility] Health Interpretation and review of laboratory results Abnormal [facility] Health Lymphocytes Manual 1 [facility] Metamyelocytes Manual 1 [facility] Monocytes Manual 1 [facility] Neutrophils Manual 76 [facility] Interpretation and review of laboratory results Abnormal [facility] Interpretation and review of laboratory results Normal [facility] CV EPIPHANY [facility] Interpretation and review of laboratory results Abnormal [facility] Health Bands Manual 23 [facility] Basophils Manual 1 [facility] Interpretation and review of laboratory results Abnormal [facility] Lymphocytes Manual 1 [facility] Metamyelocytes Manual 1 [facility] Monocytes Manual 0 [facility] Neutrophils Manual 74 [facility] No Panel InformationOrdered By: Radha Clarke on 04-15-2024 Interpretation and review of laboratory results Abnormal [facility] Proteus species Detected Abnormal Not Detected [facility] [place] [facility] No Panel InformationOrdered By: Gerber Cardona on 04-15-2024 P [place] 4 degrees [facility] [employer] Work Phone: AK Interval 154 ms [facility] Work Phone: QRS [place] 36 degrees [facility] Work Phone: QRSD Interval 90 ms [facility] [employer] Work Phone: QT Interval 336 ms [facility] [employer] Work Phone: QTC Interval 473 ms [facility] Work Phone: T Wave [place] 37 degrees [facility] [employer] Work Phone: [facility] [employer] Work Phone: Phosphate [Moles/Vol]on 04-04 Phosphate [Mass/Vol] 3.3 mg/dL 2.5 - 4 .5 mg/dL [facility] Procalcitonin [Mass/Vol]on 0 04-15-2024 Interpretation and review of laboratory results Abnormal [facility] Vital signsOrdered By: Gerber Cardona on 04-15-2024 Heart rate 119 /min bpm [facility] [employer] Work Phone: ABO and Rh group Confirm Nom (Bld)on 04-14-2024 ABO group Nom (Bld) O [facility] [employer] D Ag Ql (RBC) Negative [facility] ABO and Rh group panel (Bld) on 04-14-2024 ABO group Nom (Bld) O [facility] [employer] D Ag Ql (RBC) Negative [facility] CBC W Auto Differential pane l (Bld)Ordered By: Bev Santizo on 04-14-2024 Erythrocyte distribution width (RBC) [Ratio] 14.8 % 11.5 - 15.0 % [facility] Hematocrit (Bld) [Volume fraction] 47.3 % 40.0 - 52.0 % [facility] Hemoglobin (Bld) [Mass/Vol] 15.2 g/dL 13.0 - 18.0 g/dL [facility] Interpretation and review of laboratory results Abnormal [facility] MCH (RBC) [Entitic mass] 30.7 pg 26. 0 - 34.0 pg [facility] MCHC (RBC) [Mass/Vol] 32.1 % 30.5 - 36.0 % [facility] MCV (RBC) [Entitic vol] 95.6 fL 77.0 - 99.0 fL [facility] Platelet mean volume (Bld) [Entitic vol] 10.8 fL 9.0 - 12.7 fL [facility] Platelets (Bld) [#/Vol] 183 10*3/uL 140 - 440 10*3/uL [facility] RBC (Bld) [#/Vol] 4.95 10*6/uL 4.40 - 5.9 0 10*6/uL [facility] WBC (Bld) [#/Vol] 1.5 10*3/uL Critically low 3.6 - 10 .7 10*3/uL [facility] CT Abdomen WO contraston [facility] Radiology Study observation (narrative) [facility] alth CT Abdomen WO contrastOrdere d By: Joe Monroy on 04-14-2024 [facility] Work Phone: Comprehensive metabolic 1998 panelon 04-14-2024 Albumin [Mass/Vol] 4.0 g/dL 3.5 - 5.0 g/dL [facility] ALP [Catalytic activity/Vol] 167 U/L High 38 - 126 U/L [facility] ALT [Catalytic activity/Vol] 22 U/L 0 - 49 U/L [facility] Anion gap [Moles/Vol] 16 mmol/L High 3 - 13 mmol/L [facility] AST [Catalytic activity/Vol] 25 U/L 15 - 46 U/L [facility] Bilirubin [Mass/Vol] 1.4 mg/dL High 0.2 - 1 .3 mg/dL [facility] Calcium [Mass/Vol] 9.0 mg/dL 8.4 - 10. 4 mg/dL [facility] Chloride [Moles/Vol] 102 mmol/L 98 - 10 7 mmol/L [facility] CO2 [Moles/Vol] 19 mmol/L Low 22 - 30 mmol/L [facility] Creatinine [Mass/Vol] 1.24 mg/dL 0.66 - 1.25 mg/dL [facility] GFR/1.73 sq M.predicted MDRD (S/P/Bld) [Vol rate/Area] 65.7 mL/min/{1.73_m2} - PINF [facility] Glucose [Mass/Vol] 259 mg/dL High 70 - 100 mg/dL [facility] Potassium [Moles/Vol] 3.9 mmol/L 3.5 - 5.1 mmol/L [facility] Protein [Mass/Vol] 7.8 g/dL 6.3 - 8.2 g/dL [facility] Sodium [Moles/Vol] 137 mmol/L 135 - 145 mmol/L [facility] Urea nitrogen [Mass/Vol] 21 mg/dL High 9 - 20 mg/dL [facility] Laboratory - Chemistry and C hemistry - challengeOrdered By: Meliton Burrows on 04-14-2024 Lactate [Moles/Vol] 4.9 mmol/L Critically high 0.7 - 2.0 mmol/L [facility] Laboratory - Chemistry and C hemistry - challengeon 04-14-2024 Glucose [Mass/Vol] 223 mg/dL High 70 - 100 mg/dL [facility] Glucose [Mass/Vol] 210 mg/dL High 70 - 100 mg/dL [facility] Glucose [Mass/Vol] 226 mg/dL High 70 - 100 mg/dL [facility] Lipase [Catalytic activity/Vol] U/L Low 23 - 300 U/L [facility] Lactate [Moles/Vol] 3.9 mmol/L High 0.7 - 2. 0 mmol/L [facility] Troponin I.cardiac [Mass/Vol] ng/mL NINF - 0.034 ng/mL [facility] Beta hydroxybutyrate [Mass/Vol] 1.08 mg/dL 0.20 - 2.81 mg/dL [facility] Base excess Calc (BldV) [Moles/Vol] -8.0000 mmol/L Low -3.0 - 3.0 mmol/L [facility] CO2 (BldV) [Partial pressure] 47.4 mm[Hg] [facility] CO2 [Moles/Vol] 20.9 mmol/L Low 23.0 - 30.0 mmol/L [facility] HCO3 (Bld) [Moles/Vol] 19.5 mmol/L Low 21.0 - 30.0 mmol/L [facility] Oxygen (BldV) [Partial pressure] 40.8 mm[Hg] mm Hg [facility] pH (BldV) 7.232 [pH] Low 7.320 - 7.420 [facility] Lipase [Catalytic activity/Vol] 12 U/L Low 23 - 300 U/L [facility] Laboratory - Chemistry and C hemistry - challengeOrdered By: Elliot Martines on 04-14-2024 Lactate [Moles/Vol] 5.1 mmol/L Critically high 0.7 - 2.0 mmol/L [facility] Laboratory - Coagulationon 0 04-14-2024 PT Coag (Bld) [Time] 27.1 s High 9.0 - 1 2.0 s [facility] Laboratory - Hematology and Cell countson 04-14-2024 Hemoglobin (Bld) [Mass/Vol] 13.7 g/dL Screen only [facility] Band form neutrophils (Bld) [#/Vol] 0.3 10*3/uL High NINF - 0.0 10*3/uL [facility] Band form neutrophils/100 WBC (Bld) 17 % High NINF - 0 % [facility] Basophils (Bld) [#/Vol] 0.0 10*3/uL 0.0 - 0.2 10*3/uL [facility] Basophils/100 WBC (Bld) 1 % 0 - 2 % S [facility] Lymphocytes (Bld) [#/Vol] 0.6 10*3/uL Low 1.0 - 4.3 10*3/uL [facility] Lymphocytes/100 WBC (Bld) 38 % 15 - 45 % [facility] Monocytes (Bld) [#/Vol] 0.0 10*3/uL 0.0 - 0.9 10*3/uL [facility] Monocytes/100 WBC (Bld) 1 % Low 5 - 13 % S [facility] Neutrophils (Bld) [#/Vol] 0.9 10*3/uL Low 1.8 - 7.5 10*3/uL [facility] RBC morphology finding Nom (Bld) Normal [facility] Segmented neutrophils/100 WBC (Bld) 42 % 38 - 82 % [facility] Lipase [Catalytic activity/V ol]on 04-14-2024 Interpretation and review of laboratory results Abnormal [facility] No Panel InformationOrdered By: Meliton Burrows on 04-14-2024 Interpretation and review of laboratory results Abnormal [facility] No Panel Informationon 04-14 Interpretation and review of laboratory results Abnormal [facility] [place] Interpretation and review of laboratory results Abnormal [facility] [place] Interpretation and review of laboratory results Abnormal [facility] [place] Interpretation and review of laboratory results Abnormal [facility] Interpretation and review of laboratory results Abnormal [facility] Interpretation and review of laboratory results Normal [facility] Interpretation and review of laboratory results Abnormal [facility] Source Of Oxygen Room Air [facility] alth [facility] Health Bands Manual 17 [facility] Basophils Manual 1 [facility] Interpretation and review of laboratory results Abnormal [facility] Lymphocytes Manual 38 [facility] Monocytes Manual 1 [facility] alth Neutrophils Manual 42 [facility] Interpretation and review of laboratory results Abnormal [facility] No Panel InformationOrdered By: Elliot Martines on 04-14-2024 Interpretation and review of laboratory results Abnormal [facility] PT Coag (Bld) [Time]on 04-14 INR Coag (PPP) [Relative time] 2.7 {INR} High 0.9 - 1.1 [facility] RF Kidney and Ureter and Uri nary bladder Views W contrast retrogradeon 04-14-2024 IMAGING Troponin I.cardiac [Mass/Vol ]on 04-14-2024 Interpretation and review of laboratory results Normal [facility] Vital signson 04-14-2024 Oxygen saturation in Venous blood 70.7 % [facility] XR Chest Single viewon 04-14 [facility] RAD[facility]OLOG[facility] Radiology Study observation (narrative) [facility] XR Chest Single viewOrdered By: Geneva Lunsford on 04-14-2024 [facility] Work Phone: aPTT Coag (Bld) [Time]on aPTT Coag (PPP) [Time] 68.0 s High 20.0 - 30.5 s [facility] Telephone Encounteron 2023 Department Chairperson Authentication Interface Message Text Called pt on his room number but unable to reach him or leave a message. I called nursing staff at the [place] where he lives and was able to leave a message with nursing regarding his MRI findings and that I would like to speak with him and recommendations to schedule visit with SCI rehab and spine surgery. Vaishalirobby Pierre, DO Normal [facility] [employer] Telephone Encounteron 2023 Department Chairperson Authentication Interface Message Text Telephoned [place] pt at dinner and hospital receptionist states she cannot pull pt away from dinner. Normal [facility] [employer] Department Chairperson Authentication Interface Message Text Called pt regarding his MRI, which showed: IMPRESSION: Acute-subacute sacral insufficiency fracture at S2. Postoperative and degenerative changes of the lumbar spine with linear granulation tissue at L2-3 and tethering of the cauda equina suggesting sequelae of chronic arachnoiditis. No evidence of osteomyelitis discitis or epidural abscess. He was currently out of the half-way [place] he lives, but I was able [...] to the above findings.He does not have [employer] set up to message. Vaishali Pierre, DO Normal [facility] MR L-SPINE W/+W/Oon 04-05-20 MR L-SPINE W/+W/O EXAMINATION: MR L-SPINE W/+W/O [...] or epidural abscess. MACRO: None [facility] Lumbar spine WO and W [...] (HCC) History of lumbar fusion ORDERING PROVIDER: [facility] NOTE: COMPARISON: Lumbar radiographs from 02/10/2024 [...] History of lumbar fusion ORDERING PROVIDER: VAISHALI [facility] NOTE: COMPARISON: Lumbar radiographs from [...] osteomyelitis discitis or epidural abscess. MACRO: None [facility] MR Lumbar spine WO and W con trast IVOrdered By: Hector Li on 04-05-2024 [employer] Work Phone: Patient Instructionson 02-09 Department Chairperson Authentication Interface Message Text - xrays of the low back - can schedule the MRI of the lumbar spine - I recommend seeing one of my colleagues in the spinal cord injury clinic Normal [facility] [facility] Progress Noteson 02-10-2024 Department Chairperson Authentication Interface Message Text Physical Medicine and [...] currently in a nursing facility, [facility]. Bladder management is via Santana catheter. Bowel [...] in the spinal cord injury clinic for care home SCI related tano (more content not included)... Normal [facility] Department Chairperson Authentication Interface Message Text Vitals not obtained per provider's instructions. Normal [facility] XR L-SPINE AP+LATERAL 2-3 EWSon 02-10-2024 XR L-SPINE AP+LATERAL 2-3 VIEWS EXAMINATION: XR L-SPINE AP+LATERAL 2-3 VIEWS 02/10/2024 02:27 PM CLINICAL HISTORY: lower thoracic, upper lumbar pareplegia, h/o lumbar surgery. Obtaining updated MRI. Need pre xray ASSOCIATED DIAGNOSIS: Paraplegia (HCC) History of lumbar fusion ORDERING PROVIDER: VAISHALI [employer] NOTE: COMPARISON: None FINDINGS: There is [...] segments is considered. MACRO: None Normal [facility] XR Lumbar spine AP and Later bro[place]nn 02-10-2024 EXAMINATION: XR L-SPINE AP+LATERAL 2-3 VIEWS 02/10/2024 02:27 PM CLINICAL HISTORY: lower thoracic, upper lumbar pareplegia, h/o lumbar surgery. Obtaining updated MRI. Need pre xray ASSOCIATED DIAGNOSIS: Paraplegia (HCC) History of lumbar fusion ORDERING PROVIDER: VAISHALI [employer] NOTE: COMPARISON: None FINDINGS: There is [...] History of lumbar fusion ORDERING PROVIDER: VAISHALI [facility] NOTE: COMPARISON: None FINDINGS: There [...] on L3 segments is considered. MACRO: None [facility] Radiology Study observation (narrative) [facility] XR Lumbar spine AP and Later alOrdered By: Juan William on 02-10-2024 [facility] Phone: Basophil percentageOrdered B y: Tab Dupont on 01-15-2024 Chloride [Moles/Vol] 109 mmol/L 98-107 [facility] Glucose [Mass/Vol] 122 mg/dL 74-106 [facility] Comment on above: Fasting Glucose resu lt from 100 to 125 mg/dL suggests IMPAIRED HOMEOSTASIS per A.D.A. criteria. Hemoglobin (Bld) [Mass/Vol] 13.0 g/dL 13.0-16.5 [facility] Potassium [Moles/Vol] 3.8 mmol/L 3.5-5.1 [facility] Sodium [Moles/Vol] 139 mmol/L 136-145 [facility] WBC (Bld) [#/Vol] 6.6 10*3/uL 4.4-11.0 [facility] Determination of erythrocyte mean corpuscular volume (MCV)Ordered By: Tab Dupont on 01-15-2024 MCV (RBC) [Entitic vol] 94.3 fL 80-94 [facility] Erythrocyte distribution wid th ratioOrdered By: Tab Dupont on 01-15-2024 Erythrocyte distribution width (RBC) [Ratio] 13.8 % 11.6-14.6 [facility] Erythrocyte distribution wid th standard deviationOrdered By: Tab Dupont on 01-15-2024 Erythrocyte distribution width (RBC) [Entitic vol] 48.0 fL 35.1-43.9 [facility] Hematocrit Auto (Bld) [Volum e fraction]Ordered By: Tab Dupont on 01-15-2024 Hematocrit (Bld) [Volume fraction] 39.5 % 40-54 [facility] Laboratory - Chemistry and C hemistry - challengeOrdered By: Tab Dupont on 01-15-2024 CO2 [Moles/Vol] 26.0 mmol/L 21.0-32.0 [facility] Urea nitrogen/Creatinine [Mass ratio] 21.6 mg/mg 10-20 [facility] - Hematology and Cell countsOrdered By: Tab Dupont on 01-15-2024 MCH (RBC) [Entitic mass] 31.0 pg 27.0-32.0 [facility] MCHC (RBC) [Mass/Vol] 32.9 g/dL 32-36 [facility] Platelet mean volume (Bld) [Entitic vol] 10.4 fL 6.2-12.0 [facility] Platelets (Bld) [#/Vol] 257 10*3/uL 150-450 [facility] No Panel InformationOrdered By: Tab Dupont on 01-15-2024 Estimated GFR (MDRD) Amer 236 mL/min >60 [facility] Comment on above: GFR Calc Estimated GFR (MDRD) Non-Af Amer 195 mL/min >60 [facility] Comment on above: Non- GFR Calc RBC Auto (Bld) [#/Vol]Ordere d By: Tab Dupont on 01-15-2024 RBC (Bld) [#/Vol] 4.19 10*6/uL 4.6-6.2 [facility] Serum or plasma calcium randall urement (mass/volume)Ordered By: Tab Dupont on 01-15-2024 Calcium [Mass/Vol] 8.7 mg/dL 8.5-10.1 [facility] Serum or plasma creatinine m easurement (mass/volume)Ordered By: Tab Dupont on 01-15-2024 Creatinine [Mass/Vol] 0.46 mg/dL 0.70-1.30 [facility] Comment on above: The validity of the calculated GFR & GFRAA in patients over 70 years has not been determined. Clinical correlation is essential. Serum or plasma urea nitroge n measurement (mass/volume)Ordered By: Tab Dupont on 01-15-2024 Urea nitrogen [Mass/Vol] 10 mg/dL 7-18 [facility] Thin prep Papanicolaou smear with manual screeningOrdered By: Tab Dupont on 01-15-2024 Thin prep Papanicolaou smear with manual screening 4 5-15 [facility] Basophil percentageOrdered B y: Tab Dupont on 01-07-2024 Chloride [Moles/Vol] 112 mmol/L 98-107 [facility] Glucose [Mass/Vol] 114 mg/dL 74-106 [facility] Comment on above: Fasting Glucose resu lt from 100 to 125 mg/dL suggests IMPAIRED HOMEOSTASIS per A.D.A. criteria. Hemoglobin (Bld) [Mass/Vol] 13.0 g/dL 13.0-16.5 [facility] Potassium [Moles/Vol] 3.8 mmol/L 3.5-5.1 [facility] Sodium [Moles/Vol] 140 mmol/L 136-145 [facility] WBC (Bld) [#/Vol] 8.1 10*3/uL 4.4-11.0 [facility] Determination of erythrocyte mean corpuscular volume (MCV)Ordered By: Tab Dupont on 01-07-2024 MCV (RBC) [Entitic vol] 92.6 fL 80-94 [facility] Erythrocyte distribution wid th ratioOrdered By: Tab Dupont on 01-07-2024 Erythrocyte distribution width (RBC) [Ratio] 13.8 % 11.6-14.6 [facility] Erythrocyte distribution wid th standard deviationOrdered By: Tab Dupont on 01-07-2024 Erythrocyte distribution width (RBC) [Entitic vol] 46.5 fL 35.1-43.9 [facility] Hematocrit Auto (Bld) [Volum e fraction]Ordered By: Tab Dupont on 01-07-2024 Hematocrit (Bld) [Volume fraction] 38.9 % 40-54 [facility] - Chemistry and C hemistry - challengeOrdered By: Tab Dupotn on 01-07-2024 CO2 [Moles/Vol] 23.0 mmol/L 21.0-32.0 [facility] Urea nitrogen/Creatinine [Mass ratio] 25.5 mg/mg 10-20 [facility] - Hematology and Cell countsOrdered By: Tab Dupont on 01-07-2024 MCH (RBC) [Entitic mass] 31.0 pg 27.0-32.0 [facility] MCHC (RBC) [Mass/Vol] 33.4 g/dL 32-36 [facility] Platelet mean volume (Bld) [Entitic vol] 10.2 fL 6.2-12.0 [facility] Platelets (Bld) [#/Vol] 282 10*3/uL 150-450 [facility] No Panel InformationOrdered By: Tab Dupont on 01-07-2024 Estimated GFR (MDRD) Amer 257 mL/min >60 [facility] Comment on above: GFR Calc Estimated GFR (MDRD) Non-Af Amer 212 mL/min >60 [facility] Comment on above: Non- GFR Calc RBC Auto (Bld) [#/Vol]Ordere d By: Tab Dupont on 01-07-2024 RBC (Bld) [#/Vol] 4.20 10*6/uL 4.6-6.2 [facility] Serum or plasma calcium randall urement (mass/volume)Ordered By: Tab Dupont on 01-07-2024 Calcium [Mass/Vol] 8.5 mg/dL 8.5-10.1 [facility] Serum or plasma creatinine m easurement (mass/volume)Ordered By: Tab Dupont on 01-07-2024 Creatinine [Mass/Vol] 0.43 mg/dL 0.70-1.30 [facility] Comment on above: The validity of the calculated GFR & GFRAA in patients over 70 years has not been determined. Clinical correlation is essential. Serum or plasma urea nitroge n measurement (mass/volume)Ordered By: Tab Dupont on 01-07-2024 Urea nitrogen [Mass/Vol] 11 mg/dL 7-18 [facility] Thin prep Papanicolaou smear with manual screeningOrdered By: Tab Dupont on 01-07-2024 Thin prep Papanicolaou smear with manual screening 5 5-15 [facility] Whole blood hemoglobin A1c/t otal hemoglobin ratio (mass fraction)Ordered By: Tab Dupont on 01-04-2024 HbA1c (Bld) [Mass fraction] 6.3 % 3.8-5.6 [facility] Comment on above: Normal < 5.7 % Predi abetic 5.7 - 6.4 % Diabetic >or= 6.5 % Please note range changes. Basophil percentageOrdered B y: Tab Dupont on 12-31-2023 Chloride [Moles/Vol] 107 mmol/L 98-107 [facility] Glucose [Mass/Vol] 145 mg/dL 74-106 [facility] Comment on above: Fasting Glucose resu lt greater than or equal to 126 mg/dL suggests DIABETES MELLITUS per A.D.A. criteria. Hemoglobin (Bld) [Mass/Vol] 12.5 g/dL 13.0-16.5 [facility] Potassium [Moles/Vol] 3.4 mmol/L 3.5-5.1 [facility] Sodium [Moles/Vol] 136 mmol/L 136-145 [facility] WBC (Bld) [#/Vol] 7.7 10*3/uL 4.4-11.0 [facility] Determination of erythrocyte mean corpuscular volume (MCV)Ordered By: Tab Dupont on 12-31-2023 MCV (RBC) [Entitic vol] 93.0 fL 80-94 [facility] Erythrocyte distribution wid th ratioOrdered By: Tab Dupont on 12-31-2023 Erythrocyte distribution width (RBC) [Ratio] 14.1 % 11.6-14.6 [facility] Erythrocyte distribution wid th standard deviationOrdered By: Tab Dupont on 12-31-2023 Erythrocyte distribution width (RBC) [Entitic vol] 48.5 fL 35.1-43.9 [facility] Hematocrit Auto (Bld) [Volum e fraction]Ordered By: Tab Dupont on 12-31-2023 Hematocrit (Bld) [Volume fraction] 37.0 % 40-54 [facility] - Chemistry and C hemistry - challengeOrdered By: Tab Dupont on 12-31-2023 CO2 [Moles/Vol] 23.0 mmol/L 21.0-32.0 [facility] Urea nitrogen/Creatinine [Mass ratio] 29.1 mg/mg 10-20 [facility] - Hematology and Cell countsOrdered By: Tab Dupont on 12-31-2023 MCH (RBC) [Entitic mass] 31.4 pg 27.0-32.0 [facility] MCHC (RBC) [Mass/Vol] 33.8 g/dL 32-36 [facility] Platelet mean volume (Bld) [Entitic vol] 11.0 fL 6.2-12.0 [facility] Platelets (Bld) [#/Vol] 199 10*3/uL 150-450 [facility] No Panel InformationOrdered By: Tab Dupont on 12-31-2023 Estimated GFR (MDRD) Amer 299 mL/min >60 [facility] Comment on above: GFR Calc Estimated GFR (MDRD) Non-Af Amer 247 mL/min >60 [facility] Comment on above: Non- GFR Calc RBC Auto (Bld) [#/Vol]Ordere d By: Tab Dupont on 12-31-2023 RBC (Bld) [#/Vol] 3.98 10*6/uL 4.6-6.2 [facility] Serum or plasma calcium randall urement (mass/volume)Ordered By: Tab Dupont on 12-31-2023 Calcium [Mass/Vol] 8.6 mg/dL 8.5-10.1 [facility] Serum or plasma creatinine m easurement (mass/volume)Ordered By: Tab Dupont on 12-31-2023 Creatinine [Mass/Vol] 0.38 mg/dL 0.70-1.30 [facility] Comment on above: The validity of the calculated GFR & GFRAA in patients over 70 years has not been determined. Clinical correlation is essential. Serum or plasma urea nitroge n measurement (mass/volume)Ordered By: Tab Dupont on 12-31-2023 Urea nitrogen [Mass/Vol] 11 mg/dL 7-18 [facility] Thin prep Papanicolaou smear with manual screeningOrdered By: Tab Dupont on 12-31-2023 Thin prep Papanicolaou smear with manual screening 6 5-15 [facility] Basophil percentageOrdered B y: Tab Dupont on 12-04-2023 Basophil percentage 25-50 SEEN /hpf 0-5 [facility] Bilirubin Test strip Ql (U)O rdered By: Tab Dupont on 12-04-2023 Bilirubin Ql (U) Negative Negative [facility] Calcium oxalate crystals det ection in urine sediment by light microscopyOrdered By: Tab Dupont on 12-04-2023 Calcium oxalate crystals LM Ql (Urine sed) 2+ /hpf [facility] Culture, urineOrdered By: Vinh Lehman on 12-04-2023 Bacteria identified Cx Nom (U) ESBL Klebsiella pneumoniae pne [facility] Bacteria identified Cx Nom (U) Proteus mirabilis [facility] Ketones Test strip Ql (U)Ord ered By: Tab Dupont on 12-04-2023 Ketones Ql (U) 5 mg/dl Negative [facility] Magnesium ammonium phosphate crystal detectionOrdered By: Tab Dupont on 12-04-2023 Triple phosphate crystals LM Ql (Urine sed) 2+ /hpf [facility] Mucus LM Ql (Urine sed)Order ed By: Tab Dupont on 12-04-2023 Mucus Ql (Urine sed) 0 SEEN /hpf [facility] Nitrite Test strip Ql (U)Ord ered By: Tab Dupont on 12-04-2023 Nitrite Ql (U) Negative Negative [facility] No Panel InformationOrdered By: Tab Dupont on 12-04-2023 Urine RBC 10-25 SEEN /hpf 0-5 [facility] Protein Test strip Ql (U)Ord ered By: Tab Dupont on 12-04-2023 Protein Ql (U) 30 mg/dl Negative [facility] Squamous epithelial cells de tection in urine sediment by light microscopyOrdered By: Tab Dupont on 12-04-2023 Epithelial cells.squamous LM Ql (Urine sed) 0 SEEN /hpf 0-5 [facility] Urine blood detectionOrdered By: Tab Dupont on 12-04-2023 RBC Ql (U) 150 /ul Negative [facility] Urine clarityOrdered By: Regino Dupont on 12-04-2023 Clarity (U) Cloudy Clear [facility] Urine color determinationOrd ered By: Tab Dupont on 12-04-2023 Color (U) Yellow Yellow [facility] Urine glucose detectionOrder ed By: Tab Dupont on 12-04-2023 Glucose Ql (U) Normal mg/dl Normal [facility] Urine leukocyte esterase det ection by dipstickOrdered By: Tab Dupont on 12-04-2023 Leukocyte esterase Test strip Ql (U) 500 /ul Negative [facility] Urine pHOrdered By: Tab cordova on 12-04-2023 pH (U) 8.0 [pH] 5.0 - 8.0 [facility] Urine sediment bacteria coun t by microscopy (number/high power field)Ordered By: Tab Dupont on 12-04-2023 Bacteria LM.HPF (Urine sed) [#/Area] 3 /[HPF] None Seen [facility] Urine specific gravity measu rementOrdered By: Tab Dupont on 12-04-2023 Specific gravity (U) [Rel density] 1.015 1.002-1.030 [facility] Urine urobilinogen measureme ntOrdered By: Tab Dupont on 12-04-2023 Urobilinogen Ql (U) Normal mg/dl Normal [facility] Amorphous sediment detection in urine sediment by light microscopyOrdered By: Tab Dupont on 10-25-2023 Amorphous sediment LM Ql (Urine sed) 3+ [facility] Basophil percentageOrdered B y: Tab Dupont on 10-25-2023 Basophil percentage 0-5 SEEN /hpf 0-5 [facility] Bilirubin Test strip Ql (U)O rdered By: Tab Dupont on 10-25-2023 Bilirubin Ql (U) Negative Negative [facility] Culture, urineOrdered By: Vinh Lehman on 10-25-2023 Bacteria identified Cx Nom (U) ESBL Klebsiella pneumoniae pne [facility] Bacteria identified Cx Nom (U) Proteus mirabilis [facility] Ketones Test strip Ql (U)Ord ered By: Tab Dupont on 10-25-2023 Ketones Ql (U) Negative Negative [facility] Mucus LM Ql (Urine sed)Order ed By: Tab Dupont on 10-25-2023 Mucus Ql (Urine sed) 0 SEEN /hpf [facility] Nitrite Test strip Ql (U)Ord ered By: Tab Dupont on 10-25-2023 Nitrite Ql (U) Negative Negative [facility] No Panel InformationOrdered By: Tab Dupont on 10-25-2023 Urine RBC 0-5 SEEN /hpf 0-5 [facility] Protein Test strip Ql (U)Ord ered By: Tab Dupont on 10-25-2023 Protein Ql (U) 500 mg/dl Negative [facility] Squamous epithelial cells de tection in urine sediment by light microscopyOrdered By: Tab Dupont on 10-25-2023 Epithelial cells.squamous LM Ql (Urine sed) 0 SEEN /hpf 0-5 [facility] Urine blood detectionOrdered By: Tab Dupont on 10-25-2023 RBC Ql (U) 150 /ul Negative [facility] Urine clarityOrdered By: Regino Dupont on 10-25-2023 Clarity (U) Cloudy Clear [facility] Urine color determinationOrd ered By: Tab Dupont on 10-25-2023 Color (U) YELLOW Yellow [facility] Urine glucose detectionOrder ed By: Tab Dupont on 10-25-2023 Glucose Ql (U) Normal mg/dl Normal [facility] Urine leukocyte esterase det ection by dipstickOrdered By: Tab Dupont on 10-25-2023 Leukocyte esterase Test strip Ql (U) 500 /ul Negative [facility] Urine pHOrdered By: Tab cordova on 10-25-2023 pH (U) 8.0 [pH] 5.0 - 8.0 [facility] Urine sediment bacteria coun t by microscopy (number/high power field)Ordered By: Tab Dupont on 10-25-2023 Bacteria LM.HPF (Urine sed) [#/Area] 1 /[HPF] None Seen [facility] Urine sediment uric acid cry stal count by microscopy (number/high power field)Ordered By: Tab Dupont on 10-25-2023 Urate crystals LM.HPF (Urine sed) [#/Area] 3 /[HPF] [facility] Urine specific gravity measu rementOrdered By: Tab Dupont on 10-25-2023 Specific gravity (U) [Rel density] 1.010 1.002-1.030 [facility] Urine urobilinogen measureme ntOrdered By: Tab Dupont on 10-25-2023 Urobilinogen Ql (U) Normal mg/dl Normal [facility] Whole blood hemoglobin A1c/t otal hemoglobin ratio (mass fraction)Ordered By: Tab Dupont on 08-10-2023 HbA1c (Bld) [Mass fraction] 6.2 % 3.8-5.6 [facility] Comment on above: Normal < 5.7 % Predi abetic 5.7 - 6.4 % Diabetic >or= 6.5 % Please note range changes. Whole blood hemoglobin A1c/t otal hemoglobin ratio (mass fraction)Ordered By: Tab Dupont on 08-07-2023 HbA1c (Bld) [Mass fraction] 6.2 % 3.8-5.6 [facility] Comment on above: Normal < 5.7 % Predi abetic 5.7 - 6.4 % Diabetic >or= 6.5 % Please note range changes. Amorphous sediment detection in urine sediment by light microscopyOrdered By: Tab Dupont on 07-31-2023 Amorphous sediment LM Ql (Urine sed) 2+ [facility] Basophil percentageOrdered B y: Tab Dupont on 07-31-2023 Basophil percentage 50-100 SEEN /hpf 0-5 [facility] Bilirubin Test strip Ql (U)O rdered By: Tab Dupont on 07-31-2023 Bilirubin Ql (U) Negative Negative [facility] Culture, urineOrdered By: Vinh Lehman on 07-31-2023 Bacteria identified Cx Nom (U) ESBL Klebsiella pneumoniae pne [facility] Bacteria identified Cx Nom (U) Proteus mirabilis [facility] Ketones Test strip Ql (U)Ord ered By: Tab Dupont on 07-31-2023 Ketones Ql (U) Negative Negative [facility] Mucus LM Ql (Urine sed)Order ed By: Tab Dupont on 07-31-2023 Mucus Ql (Urine sed) 0 SEEN /hpf [facility] Nitrite Test strip Ql (U)Ord ered By: Tab Dupont on 07-31-2023 Nitrite Ql (U) Negative Negative [facility] Protein Test strip Ql (U)Ord ered By: Tab Dupont on 07-31-2023 Protein Ql (U) 30 mg/dl Negative [facility] Squamous epithelial cells de tection in urine sediment by light microscopyOrdered By: Tab Dupont on 07-31-2023 Epithelial cells.squamous LM Ql (Urine sed) 0 SEEN /hpf 0-5 [facility] Urine blood detectionOrdered By: Tab Dupont on 07-31-2023 RBC Ql (U) 250 /ul Negative [facility] RBC Ql (U) 10-25 SEEN /hpf 0-5 [facility] Urine clarityOrdered By: Regino Dupont on 07-31-2023 Clarity (U) Cloudy Clear [facility] Urine color determinationOrd ered By: Tab Dupont on 07-31-2023 Color (U) Yellow Yellow [facility] Urine glucose detectionOrder ed By: Tab Dupont on 07-31-2023 Glucose Ql (U) Normal mg/dl Normal [facility] Urine leukocyte esterase det ection by dipstickOrdered By: Tab Dupont on 07-31-2023 Leukocyte esterase Test strip Ql (U) 500 /ul Negative [facility] Urine pHOrdered By: Tab cordova on 07-31-2023 pH (U) 7.0 [pH] 5.0 - 8.0 [facility] Urine sediment bacteria coun t by microscopy (number/high power field)Ordered By: Tab Dupont on 07-31-2023 Bacteria LM.HPF (Urine sed) [#/Area] 0 /[HPF] None Seen [facility] Urine specific gravity measu rementOrdered By: Tab Dupont on 07-31-2023 Specific gravity (U) [Rel density] 1.010 1.002-1.030 [facility] Urobilinogen Auto test strip Ql (U)Ordered By: Tab Dupont on 07-31-2023 Urobilinogen Ql (U) Normal mg/dl Normal [facility] Basophil percentageOrdered B y: Tab Dupont on 06-29-2023 Chloride [Moles/Vol] 108 mmol/L 98-107 [facility] Glucose [Mass/Vol] 169 mg/dL 74-106 [facility] Comment on above: Fasting Glucose resu lt greater than or equal to 126 mg/dL suggests DIABETES MELLITUS per A.D.A. criteria. Potassium [Moles/Vol] 3.4 mmol/L 3.5-5.1 [facility] Sodium [Moles/Vol] 139 mmol/L 136-145 [facility] WBC (Bld) [#/Vol] 6.4 10*3/uL 4.4-11.0 [facility] Blood erythrocytes count (nu mber/volume)Ordered By: Tab Dupont on 06-29-2023 RBC (Bld) [#/Vol] 4.05 10*6/uL 4.6-6.2 [facility] Blood hemoglobin measurement (mass/volume)Ordered By: Tab Dupont on 06-29-2023 Hemoglobin (Bld) [Mass/Vol] 12.6 g/dL 13.0-16.5 [facility] Blood platelet mean volumeOr dered By: Tab Dupont on 06-29-2023 Platelet mean volume (Bld) [Entitic vol] 10.0 fL 6.2-12.0 [facility] Determination of erythrocyte mean corpuscular volume (MCV)Ordered By: Tab Dupont on 06-29-2023 MCV (RBC) [Entitic vol] 97.3 fL 80-94 [facility] Hematocrit Auto (Bld) [Volum e fraction]Ordered By: aTb Dupont on 06-29-2023 Hematocrit (Bld) [Volume fraction] 39.4 % 40-54 [facility] Laboratory - Chemistry and C hemistry - challengeOrdered By: Tab Dupont on 06-29-2023 CO2 [Moles/Vol] 24.0 mmol/L 21.0-32.0 [facility] Urea nitrogen/Creatinine [Mass ratio] 28.8 mg/mg 10-20 [facility] Laboratory - Hematology and Cell countsOrdered By: Tab Dupont on 06-29-2023 Erythrocyte distribution width (RBC) [Entitic vol] 48.6 fL 35.1-43.9 [facility] Erythrocyte distribution width (RBC) [Ratio] 13.6 % 11.6-14.6 [facility] MCH (RBC) [Entitic mass] 31.1 pg 27.0-32.0 [facility] MCHC Auto (RBC) [Mass/Vol]Or dered By: Tab Dupont on 06-29-2023 MCHC (RBC) [Mass/Vol] 32.0 g/dL 32-36 [facility] No Panel InformationOrdered By: Tab Dupont on 06-29-2023 Estimated GFR (MDRD) Amer 207 mL/min >60 [facility] Comment on above: GFR Calc Estimated GFR (MDRD) Non-Af Amer 171 mL/min >60 [facility] Comment on above: Non- GFR Calc Platelets bldOrdered By: Regino Dupont on 06-29-2023 Platelets (Bld) [#/Vol] 243 10*3/uL 150-450 [facility] Serum or plasma calcium randall urement (mass/volume)Ordered By: Tab Dupont on 06-29-2023 Calcium [Mass/Vol] 8.3 mg/dL 8.5-10.1 [facility] Serum or plasma creatinine m easurement (mass/volume)Ordered By: Tab Dupont on 06-29-2023 Creatinine [Mass/Vol] 0.52 mg/dL 0.70-1.30 [facility] Comment on above: The validity of the calculated GFR & GFRAA in patients over 70 years has not been determined. Clinical correlation is essential. Serum or plasma urea nitroge n measurement (mass/volume)Ordered By: Tab Dupont on 06-29-2023 Urea nitrogen [Mass/Vol] 15 mg/dL 7-18 [facility] Thin prep Papanicolaou smear with manual screeningOrdered By: Tab Dupont on 06-29-2023 Thin prep Papanicolaou smear with manual screening 7 5-15 [facility] Basophil percentageOrdered B y: Tab Dupont on 06-01-2023 Chloride [Moles/Vol] 112 mmol/L 98-107 [facility] Glucose [Mass/Vol] 133 mg/dL 74-106 [facility] Comment on above: Fasting Glucose resu lt greater than or equal to 126 mg/dL suggests DIABETES MELLITUS per A.D.A. criteria. Potassium [Moles/Vol] 3.8 mmol/L 3.5-5.1 [facility] Sodium [Moles/Vol] 141 mmol/L 136-145 [facility] WBC (Bld) [#/Vol] 6.8 10*3/uL 4.4-11.0 [facility] Blood erythrocytes count (nu mber/volume)Ordered By: Tab Dupont on 06-01-2023 RBC (Bld) [#/Vol] 3.96 10*6/uL 4.6-6.2 [facility] Blood hemoglobin measurement (mass/volume)Ordered By: Tab Dupont on 06-01-2023 Hemoglobin (Bld) [Mass/Vol] 12.7 g/dL 13.0-16.5 [facility] Blood platelet mean volumeOr dered By: Tab Dupont on 06-01-2023 Platelet mean volume (Bld) [Entitic vol] 10.1 fL 6.2-12.0 [facility] Determination of erythrocyte mean corpuscular volume (MCV)Ordered By: Tab Dupont on 06-01-2023 MCV (RBC) [Entitic vol] 99.7 fL 80-94 [facility] Hematocrit Auto (Bld) [Volum e fraction]Ordered By: Tab Dupont on 06-01-2023 Hematocrit (Bld) [Volume fraction] 39.5 % 40-54 [facility] Laboratory - Chemistry and C hemistry - challengeOrdered By: Tab Dupont on 06-01-2023 CO2 [Moles/Vol] 25.0 mmol/L 21.0-32.0 [facility] Urea nitrogen/Creatinine [Mass ratio] 29.2 mg/mg 10-20 [facility] Laboratory - Hematology and Cell countsOrdered By: Tab Dupont on 06-01-2023 Erythrocyte distribution width (RBC) [Entitic vol] 54.3 fL 35.1-43.9 [facility] Erythrocyte distribution width (RBC) [Ratio] 14.6 % 11.6-14.6 [facility] MCH (RBC) [Entitic mass] 32.1 pg 27.0-32.0 [facility] MCHC Auto (RBC) [Mass/Vol]Or dered By: aTb Dupont on 06-01-2023 MCHC (RBC) [Mass/Vol] 32.2 g/dL 32-36 [facility] No Panel InformationOrdered By: Tab Dupont on 06-01-2023 Estimated GFR (MDRD) Amer 227 mL/min >60 [facility] Comment on above: GFR Calc Estimated GFR (MDRD) Non-Af Amer 188 mL/min >60 [facility] Comment on above: Non- GFR Calc Platelets bldOrdered By: Regino Dupont on 06-01-2023 Platelets (Bld) [#/Vol] 274 10*3/uL 150-450 [facility] Serum or plasma calcium randall urement (mass/volume)Ordered By: Tab Dupont on 06-01-2023 Calcium [Mass/Vol] 8.5 mg/dL 8.5-10.1 [facility] Serum or plasma creatinine m easurement (mass/volume)Ordered By: Tab Dupont on 06-01-2023 Creatinine [Mass/Vol] 0.48 mg/dL 0.70-1.30 [facility] Comment on above: The validity of the calculated GFR & GFRAA in patients over 70 years has not been determined. Clinical correlation is essential. Serum or plasma urea nitroge n measurement (mass/volume)Ordered By: Tab Dupont on 06-01-2023 Urea nitrogen [Mass/Vol] 14 mg/dL 7-18 [facility] Thin prep Papanicolaou smear with manual screeningOrdered By: Tab Dupont on 06-01-2023 Thin prep Papanicolaou smear with manual screening 4 5-15 [facility] Urinalysis complete panel (U )Ordered By: Darya Nazario on 05-23-2023 Bacteria LM.HPF (Urine sed) [#/Area] Moderate Abnormal Negative /HPF [facility] Bilirubin Ql (U) Negative Negative mg/dL [facility] Clarity (U) Extra Turbid Abnormal Clear [facility] Color (U) Yellow Lt. Yellow [facility] Epithelial cells.squamous LM.HPF (Urine sed) [#/Area] 0-2 [facility] Glucose Ql (U) Normal Normal (<70) mg/dL [facility] Hemoglobin Ql (U) 0.1 mg/dL Abnormal Negative [facility] Interpretation and review of laboratory results Abnormal [facility] Ketones (U) [Mass/Vol] Negative Negat mary grace mg/dL [facility] Leukocyte clumps LM.HPF (Urine sed) [#/Area] Moderate Abnormal Negative /HPF [facility] Leukocyte esterase Test strip Ql (U) 500 Abnormal Negative Da/uL [facility] Mucus LM.HPF (Urine sed) [#/Area] Few Negative /LPF [facility] Nitrite Ql (U) Positive Abnormal Negative [facility] pH (U) 8.0 [pH] 5.0 - 8.0 pH [facility] Protein (U) [Mass/Vol] 100 mg/dL Abnormal Negative [facility] RBC LM.HPF (Urine sed) [#/Area] /[HPF] Abnormal [facility] Specific gravity (U) [Rel density] 1.014 1.005 - 1.030 [facility] Triple phosphate crystals LM.HPF (Urine sed) [#/Area] Moderate Abnormal Negative /HPF [facility] Urobilinogen (U) [Mass/Vol] Normal Normal (0-1) mg/dL [facility] WBC LM.HPF (Urine sed) [#/Area] /[HPF] Abnormal [facility] Basophil percentageOrdered B y: Tab Dupont on 05-04-2023 Bilirubin [Mass/Vol] 0.20 mg/dL 0.20-1.00 [facility] Comment on above: For patients on eltr ombopag therapy, use of Dimension [place] TBIL is not recommended. Chloride [Moles/Vol] 109 mmol/L 98-107 [facility] Glucose [Mass/Vol] 183 mg/dL 74-106 [facility] Comment on above: Fasting Glucose resu lt greater than or equal to 126 mg/dL suggests DIABETES MELLITUS per A.D.A. criteria. Potassium [Moles/Vol] 4.0 mmol/L 3.5-5.1 [facility] Protein [Mass/Vol] 6.0 g/dL 6.4-8.2 [facility] Sodium [Moles/Vol] 139 mmol/L 136-145 [facility] WBC (Bld) [#/Vol] 6.7 10*3/uL 4.4-11.0 [facility] Blood erythrocytes count (nu mber/volume)Ordered By: Tab Dupont on 05-04-2023 RBC (Bld) [#/Vol] 3.31 10*6/uL 4.6-6.2 [facility] Blood hemoglobin measurement (mass/volume)Ordered By: Tab Dupont on 05-04-2023 Hemoglobin (Bld) [Mass/Vol] 10.2 g/dL 13.0-16.5 [facility] Blood platelet mean volumeOr dered By: Tab Dupont on 05-04-2023 Platelet mean volume (Bld) [Entitic vol] 10.2 fL 6.2-12.0 [facility] Determination of erythrocyte mean corpuscular volume (MCV)Ordered By: Tab Dupont on 05-04-2023 MCV (RBC) [Entitic vol] 99.1 fL 80-94 [facility] Hematocrit Auto (Bld) [Volum e fraction]Ordered By: Tab Dupont on 05-04-2023 Hematocrit (Bld) [Volume fraction] 32.8 % 40-54 [facility] Laboratory - Chemistry and C hemistry - challengeOrdered By: Tab Dupont on 05-04-2023 ALP [Catalytic activity/Vol] 104 U/L 45-117 [facility] ALT [Catalytic activity/Vol] 17 U/L 16-61 [facility] CO2 [Moles/Vol] 26.0 mmol/L 21.0-32.0 [facility] Globulin (S) [Mass/Vol] 3.8 g/dL 2.2-4.2 [facility] Urea nitrogen/Creatinine [Mass ratio] 21.9 mg/mg 10-20 [facility] Laboratory - Hematology and Cell countsOrdered By: Tab Dupont on 05-04-2023 Erythrocyte distribution width (RBC) [Entitic vol] 48.8 fL 35.1-43.9 [facility] Erythrocyte distribution width (RBC) [Ratio] 13.5 % 11.6-14.6 [facility] MCH (RBC) [Entitic mass] 30.8 pg 27.0-32.0 [facility] MCHC Auto (RBC) [Mass/Vol]Or dered By: Tab Dupont on 05-04-2023 MCHC (RBC) [Mass/Vol] 31.1 g/dL 32-36 [facility] No Panel InformationOrdered By: Tab Dupont on 05-04-2023 Estimated GFR (MDRD) Amer 195 mL/min >60 [facility] Comment on above: GFR Calc Estimated GFR (MDRD) Non-Af Amer 161 mL/min >60 [facility] Comment on above: Non- GFR Calc Platelets bldOrdered By: Regino Dupont on 05-04-2023 Platelets (Bld) [#/Vol] 290 10*3/uL 150-450 [facility] Serum or plasma albumin randall urement (mass/volume)Ordered By: Tab Dupont on 05-04-2023 Albumin [Mass/Vol] 2.2 g/dL 3.2-5.0 [facility] Serum or plasma albumin/glob ulin mass ratioOrdered By: Tab Dupont on 05-04-2023 Albumin/Globulin [Mass ratio] 0.6 {ratio} 0.9-2.4 [facility] Serum or plasma calcium randall urement (mass/volume)Ordered By: Tab Dupont on 05-04-2023 Calcium [Mass/Vol] 8.4 mg/dL 8.5-10.1 [facility] Serum or plasma creatinine m easurement (mass/volume)Ordered By: Tab Dupont on 05-04-2023 Creatinine [Mass/Vol] 0.55 mg/dL 0.70-1.30 [facility] Comment on above: The validity of the calculated GFR & GFRAA in patients over 70 years has not been determined. Clinical correlation is essential. Serum or plasma urea nitroge n measurement (mass/volume)Ordered By: Tab Dupont on 05-04-2023 Urea nitrogen [Mass/Vol] 12 mg/dL 7-18 [facility] Thin prep Papanicolaou smear with manual screeningOrdered By: Tab Dupont on 05-04-2023 Thin prep Papanicolaou smear with manual screening 16 U/L 15-37 [facility] Thin prep Papanicolaou smear with manual screening 4 5-15 [facility] Basophil percentageOrdered B y: Tab Dupont on 03-25-2023 Bilirubin [Mass/Vol] 0.30 mg/dL 0.20-1.00 [facility] Comment on above: For patients on eltr ombopag therapy, use of Dimension [place] TBIL is not recommended. Chloride [Moles/Vol] 107 mmol/L 98-107 [facility] Cholesterol [Mass/Vol] 163 mg/dL <200 [facility] Comment on above: <200 mg/dL Desirable 200-240 mg/dL Borderline >240 mg/dL High Risk Glucose [Mass/Vol] 119 mg/dL 74-106 [facility] Comment on above: Fasting Glucose resu lt from 100 to 125 mg/dL suggests IMPAIRED HOMEOSTASIS per A.D.A. criteria. Potassium [Moles/Vol] 3.6 mmol/L 3.5-5.1 [facility] Protein [Mass/Vol] 6.7 g/dL 6.4-8.2 [facility] Sodium [Moles/Vol] 137 mmol/L 136-145 [facility] Triglyceride [Mass/Vol] 139 mg/dL <199 [facility] Comment on above: The drugs N-Acetylcy steine and Metamizole may falsely depress this assay.Serum Triglycerides Reference Interval Normal <150 mg/dL Borderline high 150 - 199 mg/dL High 200 - 499 mg/dL Very High > or = 500 mg/dL WBC (Bld) [#/Vol] 6.8 10*3/uL 4.4-11.0 [facility] Blood erythrocytes count (nu mber/volume)Ordered By: Tab Dupont on 03-25-2023 RBC (Bld) [#/Vol] 3.71 10*6/uL 4.6-6.2 [facility] Blood hemoglobin measurement (mass/volume)Ordered By: Tab Dupont on 03-25-2023 Hemoglobin (Bld) [Mass/Vol] 11.6 g/dL 13.0-16.5 [facility] Blood platelet mean volumeOr dered By: Tab Dupont on 03-25-2023 Platelet mean volume (Bld) [Entitic vol] 9.9 fL 6.2-12.0 [facility] Determination of erythrocyte mean corpuscular volume (MCV)Ordered By: Tab Dupont on 03-25-2023 MCV (RBC) [Entitic vol] 99.5 fL 80-94 [facility] Hematocrit Auto (Bld) [Volum e fraction]Ordered By: Tab Dupont on 03-25-2023 Hematocrit (Bld) [Volume fraction] 36.9 % 40-54 [facility] Laboratory - Chemistry and C hemistry - challengeOrdered By: Tab Dupont on 03-25-2023 ALP [Catalytic activity/Vol] 121 U/L 45-117 [facility] ALT [Catalytic activity/Vol] 18 U/L 16-61 [facility] CO2 [Moles/Vol] 23.0 mmol/L 21.0-32.0 [facility] Globulin (S) [Mass/Vol] 4.3 g/dL 2.2-4.2 [facility] Urea nitrogen/Creatinine [Mass ratio] 22.6 mg/mg 10-20 [facility] Laboratory - Hematology and Cell countsOrdered By: Tab Dupont on 03-25-2023 Erythrocyte distribution width (RBC) [Entitic vol] 50.3 fL 35.1-43.9 [facility] Erythrocyte distribution width (RBC) [Ratio] 13.5 % 11.6-14.6 [facility] MCH (RBC) [Entitic mass] 31.3 pg 27.0-32.0 [facility] MCHC Auto (RBC) [Mass/Vol]Or dered By: Tab Dupont on 03-25-2023 MCHC (RBC) [Mass/Vol] 31.4 g/dL 32-36 [facility] No Panel InformationOrdered By: Tab Dupont on 03-25-2023 Estimated GFR (MDRD) Amer 250 mL/min >60 [facility] Comment on above: GFR Calc Estimated GFR (MDRD) Non-Af Amer 207 mL/min >60 [facility] Comment on above: Non- GFR Calc Prostate Specific Antigen Screen 0.59 ng/mL 0.00-4.00 [facility] Comment on above: This test was perfor med using the TPSA assay method for thePagar.me chemistry system. Values obtained with differentassay methods cannot be used interchangably.When changing PSA assays in the course of monitoring apatient, additional sequential testing should be carriedout to confirm baseline values. Thyroid Stimulating Hormone (TSH) 3.33 uIU/mL 0.358-3.74 [facility] Platelets bldOrdered By: Regino Dupont on 03-25-2023 Platelets (Bld) [#/Vol] 301 10*3/uL 150-450 [facility] Serum or plasma albumin randall urement (mass/volume)Ordered By: Tab Dupont on 03-25-2023 Albumin [Mass/Vol] 2.4 g/dL 3.2-5.0 [facility] Serum or plasma albumin/glob ulin mass ratioOrdered By: Tab Dupont on 03-25-2023 Albumin/Globulin [Mass ratio] 0.6 {ratio} 0.9-2.4 [facility] Serum or plasma calcium randall urement (mass/volume)Ordered By: Tab Dupont on 03-25-2023 Calcium [Mass/Vol] 8.7 mg/dL 8.5-10.1 [facility] Serum or plasma cholesterol in HDL measurement (mass/volume)Ordered By: Tab Dupont on 03-25-2023 Cholesterol in HDL [Mass/Vol] 27 mg/dL >40 [facility] Comment on above: The drugs N-Acetylcy steine and Metamizole may falsely depress this assay. Reference Range HDL <40 mg/dL Low HDL Cholesterol HDL >or= 60 mg/dL High HDL Cholesterol Serum or plasma cholesterol in VLDL measurement (mass/volume)Ordered By: Tab Dupont on 03-25-2023 Cholesterol in VLDL [Mass/Vol] 28 mg/dL 5-40 [facility] Serum or plasma creatinine m easurement (mass/volume)Ordered By: Tab Dupont on 03-25-2023 Creatinine [Mass/Vol] 0.44 mg/dL 0.70-1.30 [facility] Comment on above: The validity of the calculated GFR & GFRAA in patients over 70 years has not been determined. Clinical correlation is essential. Serum or plasma low density lipoprotein (LDL) cholesterol measurement (mass/volume)Ordered By: Tab Dupont on 03-25-2023 Cholesterol in LDL [Mass/Vol] 108 mg/dL 0-130 [facility] Serum or plasma urea nitroge n measurement (mass/volume)Ordered By: Tab Dupont on 03-25-2023 Urea nitrogen [Mass/Vol] 10 mg/dL 7-18 [facility] Thin prep Papanicolaou smear with manual screeningOrdered By: Tab Dupont on 03-25-2023 Thin prep Papanicolaou smear with manual screening 13 U/L 15-37 [facility] Thin prep Papanicolaou smear with manual screening 7 5-15 [facility] ANMOL REYNOLDS ([id number]) 1960 Jamie Date Time Provider Department 12/02/21 VITALY SMALLWOOD HCSIND During your visit today, we recorded the following information about you: Vitaly MederosultonALEXANDRA 12/02/2021 9:58 AM Signed Called patient to [...] (Blistex) - sodium chloride 0.65 % 2 [place] (AYR, OCEAN) - saliva substitute combo no.9 [...] Of Date 12/02/2021 Noted Resolved NO SHOW [[id number]] 08/31/2013 05/29/2020 Perineal abscess [L02.215] 06/13/2019 05/29/2020 [...] Encounter Status:Closed by VITALY SMALLWOOD on 12/02/21 [facility] Telephone (HCSIND) ANMOL REYNOLDS ([id number]) 1960 M Date Time Provider Department 12/02/21 VITALY SMALLWOOD During your visit today, we recorded the following information about you: Vitaly Smallwood LPN 12/02/2021 9:05 AM Signed Ambrosio Monroy, DO Please advise if you are agreeable to signing and following for [facility] services? Our Clinicians will be sending [...] Signed Call made to MD office, Per Birdie, Dr. Monroy will follow. Vitaly Smallwood LPN Allergies As [...] (Blistex) - sodium chloride 0.65 % 2 [place] (AYR, OCEAN) - saliva substitute combo no.9 [...] Of Date 12/02/2021 Noted Resolved NO SHOW [[id number]] 08/31/2013 05/29/2020 Perineal abscess [L02.215] 06/13/2019 05/29/2020 [...] WALLACE SMALLWOOD (more content not included)... Normal [facility] CNPN Telephone (HCSIND) GIVEN,ANMOL ([id number]) 1960 M Date Time Provider Department 12/02/21 VITALY SMALLWOOD During your visit today, we recorded the following information about you: Vitaly Smallwood LPN 12/02/2021 9:06 AM Signed Please advise if you are agreeable to signing and following for [facility]HC services? Our Clinicians will be sending the [...] (Blistex) - sodium chloride 0.65 % 2 [place] (AYR, OCEAN) - saliva substitute combo no.9 [...] Of Date 12/02/2021 Noted Resolved NO SHOW [[id number]] 08/31/2013 05/29/2020 Perineal abscess [L02.215] 06/13/2019 05/29/2020 [...] Status:Closed by VITALY SMALLWOOD on 12/02/21 Normal [facility] ANTISMOOTH MUSCLE ABon 01-11 -2022 ANTISMOOTH MUSCLE AB Negative Normal NEGATIVE [facility] Comment on above: Performed By: #### A SMAB #### [facility] [address] [place] [address] SEEMA-WITH REFLEX TO ENAon SEEMA WITH REFLEX TO AYDEE Negative Normal NEGATIVE [facility] Comment on above: Result Comment: The Antinuclear Antibody (SEEMA) test was performed using indirect immunofluorescence assay with HEp-2 cells slide. Performed By: #### A NA2 #### [facility] [address] [place] [address] COMPREHENSIVE PANELon 2021 Glucose [Mass/Vol] 916 mg/dL Critically high 74 - 99 [facility] Comment on above: Order Comment: READ BACK CRIT GLU TO [place]AREED [place], 10/12/2021 00:08 Result Comment: READ BACK CRIT GLU TO [place], 10/12/2021 00:08 Performed By: #### C MP #### [facility] [address] [place] [address] Albumin [Mass/Vol] 3.9 g/dL Normal 3.4 - 5.0 [facility] Comment on above: Order Comment: READ BACK CRIT GLU TO [place]ED [place], 10/12/2021 00:08 Performed By: #### C MP #### [facility] [id number] [place] [address] ALP [Catalytic activity/Vol] 235 U/L High 33 - 136 [facility] Comment on above: Order Comment: READ BACK CRIT GLU TO [place], 10/12/2021 00:08 Performed By: #### C MP #### [facility] [address] [place] [address] ALT [Catalytic activity/Vol] 192 U/L High 10 - 52 [facility] Comment on above: Order Comment: READ BACK CRIT GLU TO [place], 10/12/2021 00:08 Result Comment: Blanca ents treated with Sulfasalazine may generate falsely decreased results for ALT. Performed By: #### C MP #### [facility] [address] [place] [address] Anion gap [Moles/Vol] 16 mmol/L Normal 10 - 20 [facility] Comment on above: Order Comment: READ BACK CRIT GLU TO [place], 10/12/2021 00:08 Performed By: #### C MP #### [facility] [address] [place] [address] AST [Catalytic activity/Vol] 141 U/L High 9 - 39 [facility] Comment on above: Order Comment: READ BACK CRIT GLU TO [place], 10/12/2021 00:08 Performed By: #### C MP #### [facility] [address] [place] [address] Bilirubin [Mass/Vol] 0.7 mg/dL Normal 0.0 - 1.2 [facility] Comment on above: Order Comment: READ BACK CRIT GLU TO [place], 10/12/2021 00:08 Performed By: #### C MP #### [facility] [address] [place] [address] Calcium [Mass/Vol] 9.0 mg/dL Normal 8.6 - 10.6 [facility] Comment on above: Order Comment: READ BACK CRIT GLU TO [place], 10/12/2021 00:08 Performed By: #### C MP #### [facility] [address] [place] [address] Chloride [Moles/Vol] 91 mmol/L Low 98 - 107 [facility] Comment on above: Order Comment: READ BACK CRIT GLU TO [place], 10/12/2021 00:08 Performed By: #### C MP #### [facility] [address] [place] [address] Creatinine [Mass/Vol] 0.62 mg/dL Normal 0.50 - 1.30 [facility] Comment on above: Order Comment: READ BACK CRIT GLU TO [place], 10/12/2021 00:08 Performed By: #### C MP #### [facility] [address] [place] [address] eGFR MALE >90 Normal >90 [facility] Comment on above: Order Comment: READ BACK CRIT GLU TO [place], 10/12/2021 00:08 Result Comment: CALC ULATIONS OF ESTIMATED GFR ARE PERFORMED USING THE 2020 CKD-EPI STUDY REFIT EQUATION WITHOUT THE RACE VARIABLE FOR THE IDMS-TRACEABLE CREATININE METHODS. https://jasn.asnjournals.org/content/early/ASN.940 2671622 Performed By: #### C MP #### [facility] [address] [place] [address] HCO3 (Bld) [Moles/Vol] 25 mmol/L Normal 21 - 32 [facility] Comment on above: Order Comment: READ BACK CRIT GLU TO [place], 10/12/2021 00:08 Performed By: #### C MP #### [facility] [address] [place] [address] Potassium [Moles/Vol] 4.5 mmol/L Normal 3.5 - 5.3 [facility] Comment on above: Order Comment: READ BACK CRIT GLU TO [place], 10/12/2021 00:08 Performed By: #### C MP #### [facility] [address] [place] [address] Protein [Mass/Vol] 5.9 g/dL Low 6.4 - 8.2 [facility] Comment on above: Order Comment: READ BACK CRIT GLU TO [place], 10/12/2021 00:08 Performed By: #### C MP #### [facility] [address] [place] [address] Sodium [Moles/Vol] 127 mmol/L Low 136 - 145 [facility] Comment on above: Order Comment: READ BACK CRIT GLU TO [place], 10/12/2021 00:08 Performed By: #### C MP #### [facility] [address] [place] [address] Urea nitrogen [Mass/Vol] 14 mg/dL Normal 6 - 23 [facility] Comment on above: Order Comment: READ BACK CRIT GLU TO [place], 10/12/2021 00:08 Performed By: #### C MP #### [facility] [address] [place] [address] FERRITINon 10-12-2021 FERRITIN 1311 ug/L High 20 - 300 [facility] Comment on above: Performed By: #### F ERRI #### [facility] [address] [place] [address] IGG SUBCLASS 4on 10-12-2021 IGG SUBCLASS 4 25 mg/dL Normal 3 - 200 [facility] Women Comment on above: Performed By: #### I GGG4 #### [facility] [address] [place] [address] IRON + TIBCon 10-12-2021 % SATURATION 70 % High 25 - 45 [facility] Comment on above: Performed By: #### I BRENDAT #### [facility] [address] [place] [address] Iron [Mass/Vol] 180 ug/dL High 35 - 150 [facility] Comment on above: Performed By: #### I BRENDAT #### [facility] [address] [place] [address] TIBC 257 ug/dL Normal 240 - 445 [facility] Comment on above: Performed By: #### I BRENDAT #### [facility] [address] [place] [address] CNPNon 09-10-2021 CNPN Telephone (PODCCP) ANMOL REYNOLDS ([id number]) 1960 M Date Time Provider Department 09/10/21 NEHEMIAS MCMANUS During your visit today, we recorded the following information about you: Allergies As of Date: 09/10/2021 (No Known Allergies) Date Reviewed: 09/06/2021 Reviewed by: Mary Ellen Brown RN - Fully Assessed Reason for Visit: Follow Up [171] Cmt: Gyant interaction - F/U - attempt made. No [...] Of Date 09/10/2021 Noted Resolved NO SHOW [[id number]] 08/31/2013 05/29/2020 Perineal abscess [L02.215] 06/13/2019 05/29/2020 [...] Encounter Status:Closed by NEHEMIAS MCMANUS on 09/10/21 [facility] CNPChina 08-14-2021 CNPN Telephone (GENVU SecurityE) ANMOL REYNOLDS ([id number]) 1960 Date Time Provider Department 08/14/21 PENNY CAMERON During your visit today, we recorded the following information about you: Brynn Arreola 08/14/2021 10:35 AM Signed Patient calling to let Dr. Cameron know he is having a colonoscopy done in September by Dr. Russell Allergies As of Date: 08/14/2021 (No Known [...] Of Date 08/14/2021 Noted Resolved NO SHOW [[id number]] 08/31/2013 05/29/2020 Perineal abscess [L02.215] 06/13/2019 05/29/2020 Nicotine use disorder, F17.2 [F17.200] 06/14/2019 Pilonidal cyst without abscess [L05.91] 05/29/2020 Pilonidal cyst with abscess [L05.01] 12/31/2020 Perirectal abscess [K61.1] 01/16/2021 Diabetes (HCC) [E11.9] 01/18/2021 Encounter Status:Closed by BRYNN ARREOLA on 08/14/21 [facility] ANMOL REYNOLDS ([id number]) 1960 M Date Time Provider Department 08/09/21 PENNY CAMERON During your visit today, we recorded the following information about you: Byron Espinal RN 08/09/2021 2:56 PM Signed Records received from [facility] disease [facility] Records labeled and placed in records folder near [facility] desk Allergies As of Date: 08/09/2021 (No Known Allergies) Date Reviewed: 08/08/2021 Reviewed by: Penny Cameron MD - Fully Assessed Reason for Visit: Received Outside Medical Records [[id number]] Prescriptions as of 08/23/2021 - gabapentin (NEURONTIN) [...] Of Date 08/09/2021 Noted Resolved NO SHOW [[id number]] 08/31/2013 05/29/2020 Perineal abscess [L02.215] 06/13/2019 05/29/2020 Nicotine use disorder, F17.2 [F17.200] 06/14/2019 Pilonidal cyst without abscess [L05.91] 05/29/2020 Pilonidal cyst with abscess [L05.01] 12/31/2020 Perirectal abscess [K61.1] 01/16/2021 Diabetes (HCC) [E11.9] 01/18/2021 Encounter Status:Closed by BYRON ESPINAL RN on 08/23/21 [facility] Brad 08-05-2021 CNOV Office Visit (COLEMAN ) ANMOL REYNOLDS ([id number]) 1960 Jamie Date Time Provider Department 08/05/21 10:15 AM [...] at 1 (more content not included)... Normal [facility] CA 19-9on 05-23-2021 CA 19-9 284 U/mL High <36 [facility] Comment on above: Performed By: #### C A199 #### [facility] [address] [place] [address] #### TSH, FT4, FREET3 #### [facility] [address] [place] [phone] Free T3on 05-22-2021 Free T3 [Mass/Vol] 1.7 pg/mL Low 2.3-4.1 [facility] Comment on above: Performed By: #### C A199 #### [facility] [address] [place] [phone] #### TSH, FT4, FREET3 #### [facility] [address] [place] [address] Free T4on 05-22-2021 Free T4 [Mass/Vol] 1.2 ng/dL Normal 0.9-1.7 [facility] Comment on above: Performed By: #### C A199 #### [facility] [address] [place] [phone] #### TSH, FT4, FREET3 #### [facility] [address] [place] [address] TSHon 05-22-2021 TSH Qn 1.450 m[IU]/L Normal 0.270-4.200 [facility] Comment on above: Performed By: #### C A199 #### [facility] [address] [place] [phone] #### TSH, FT4, FREET3 #### [facility] Routine Lab [address] [place], [place] [address] Basic Metabolic Panelon 10-06 Anion gap [Moles/Vol] 14 mmol/L Normal 9-15 [facility] Comment on above: Performed By: #### B MP #### [facility] [address] [place] [address] Calcium [Mass/Vol] 8.4 mg/dL Low 8.5-9.9 [facility] Comment on above: Performed By: #### B MP #### [facility] [address] [place] [address] Chloride [Moles/Vol] 100 mmol/L Normal 95-107 [facility] Comment on above: Performed By: #### B MP #### [facility] [address] [place] [address] CO2 [Moles/Vol] 23 mmol/L Normal 20-31 [facility] Comment on above: Performed By: #### B MP #### [facility] [address] [place] [address] Creatinine [Mass/Vol] 0.57 mg/dL Low 0.70-1.20 [facility] Comment on above: Performed By: #### B MP #### [facility] [address] [place] [address] GFR/1.73 sq M predicted among blacks MDRD (S/P/Bld) [Vol rate/Area] mL/min/{1.73_m2} Normal >60 [facility] Comment on above: Result Comment: >60 mL/min/1.73m2 EGFR, calc. for ages 18 and older using the MDRD formula (not corrected for weight), is valid for stable renal function. Performed By: #### B MP #### [facility] [address] [place] [address] GFR/1.73 sq M.predicted MDRD (S/P/Bld) [Vol rate/Area] mL/min/{1.73_m2} Normal >60 [facility] Comment on above: Result Comment: >60 mL/min/1.73m2 EGFR, calc. for ages 18 and older using the MDRD formula (not corrected for weight), is valid for stable renal function. Performed By: #### B MP #### [facility] [address] [place] [address] Glucose [Mass/Vol] 245 mg/dL Critically high 70-99 M [facility] Comment on above: Performed By: #### B MP #### [facility] [address] [place] [address] Potassium [Moles/Vol] 3.9 mmol/L Normal 3.4-4.9 [facility] Comment on above: Performed By: #### B MP #### [facility] [address] [place] [address] Sodium [Moles/Vol] 137 mmol/L Normal 135-144 [facility] Comment on above: Performed By: #### B MP #### [facility] [address] [place] [address] Urea nitrogen [Mass/Vol] 13 mg/dL Normal 6-20 [facility] Comment on above: Performed By: #### B MP #### [facility] [address] [place] [address] Anion gap [Moles/Vol] 14 mmol/L [facility], [place] Calcium [Mass/Vol] 8.4 mg/dL Low 8.5 - 9.9 mg/dL [facility], [place] Chloride [Moles/Vol] 100 mmol/L [facility], [place] CO2 [Moles/Vol] 23 mmol/L [facility], [place] Creatinine [Mass/Vol] 0.57 mg/dL Low 0.7 - 1.2 mg/dL [facility], [place] GFR >60.0 >60 [facility], [place] Comment on above: >60 mL/min/1.73m2 EG FR, calc. for ages 18 and older using the MDRD formula (not corrected for weight), is valid for stable renal function. GFR Non- >60.0 >60 [place] Comment on above: >60 mL/min/1.73m2 EG FR, calc. for ages 18 and older using the MDRD formula (not corrected for weight), is valid for stable renal function. Glucose [Mass/Vol] 245 mg/dL High 70 - 99 mg/dL [place] Interpretation and review of laboratory results Abnormal [place] Potassium [Moles/Vol] 3.9 mmol/L [place] Sodium [Moles/Vol] 137 mmol/L [place] Urea nitrogen [Mass/Vol] 13 mg/dL 6 - 20 mg/dL [place] CBC Auto Differentialon 10-06 Basophils (Bld) [#/Vol] 0.0 10*3/uL 0 - 0.2 K/uL [place] Basophils/100 WBC (Bld) 0.4 % M [place], [place] Eosinophils (Bld) [#/Vol] 0.2 10*3/uL 0 - 0.7 K/uL [place] Eosinophils/100 WBC (Bld) 1.6 % [place] Erythrocyte distribution width (RBC) [Ratio] 13.1 % 11.5 - 14.5 % [place] Hematocrit (Bld) [Volume fraction] 39.0 % Low 42 - 52 % [place] Hemoglobin (Bld) [Mass/Vol] 13.3 g/dL Low 14 - 18 g/dL [place] Interpretation and review of laboratory results Abnormal [place] Lymphocytes (Bld) [#/Vol] 1.8 10*3/uL 1 - 4.8 K/uL [place] Lymphocytes/100 WBC (Bld) 16.0 % [place] MCH (RBC) [Entitic mass] 33.3 pg High 27 - 31.3 pg [place] MCHC (RBC) [Mass/Vol] 34.0 % 33 - 37 % [place] MCV (RBC) [Entitic vol] 98.0 fL 80 - 100 fL [place] Monocytes (Bld) [#/Vol] 1.2 10*3/uL High 0.2 - 0.8 K/uL [place] Monocytes/100 WBC (Bld) 10.8 % [place] Neutrophils Absolute 7.8 K/uL High 1.4 - 6 .5 K/uL [place] Neutrophils/100 WBC (Bld) 71.2 % [place] Platelets (Bld) [#/Vol] 232 10*3/uL 130 - 400 K/uL [place] RBC (Bld) [#/Vol] 3.98 10*6/uL Low [place] WBC (Bld) [#/Vol] 10.9 10*3/uL High 4.8 - 10.8 K/uL [place] CBC With Platelet and Differ entialon 10-25-2020 Basophils (Bld) [#/Vol] 0.0 10*3/uL Normal 0.0-0.2 [facility] Comment on above: Performed By: #### C BCWD #### [facility] [address] [place] [address] Basophils/100 WBC (Bld) 0.4 % Normal [facility] Comment on above: Performed By: #### C BCWD #### [facility] [address] [place] [address] Eosinophils (Bld) [#/Vol] 0.2 10*3/uL Normal 0.0-0.7 [facility] Comment on above: Performed By: #### C BCWD #### [facility] [address] [place] [address] Eosinophils/100 WBC (Bld) 1.6 % Normal [facility] Comment on above: Performed By: #### C BCWD #### [facility] [address] [place] [address] Erythrocyte distribution width (RBC) [Ratio] 13.1 % Normal 11.5-14.5 [facility] Comment on above: Performed By: #### C BCWD #### [facility] [address] [place] [address] Hematocrit (Bld) [Volume fraction] 39.0 % Low 42.0-52.0 [facility] Comment on above: Performed By: #### C BCWD #### [facility] [address] [place] [address] Hemoglobin (Bld) [Mass/Vol] 13.3 g/dL Low 14.0-18.0 [facility] Comment on above: Performed By: #### C BCWD #### [facility] [address] [place] [address] Lymphocytes (Bld) [#/Vol] 1.8 10*3/uL Normal 1.0-4.8 [facility] Comment on above: Performed By: #### C BCWD #### [facility] [address] [place] [address] Lymphocytes/100 WBC (Bld) 16.0 % Normal [facility] Comment on above: Performed By: #### C BCWD #### [facility] [address] [place] [address] MCH (RBC) [Entitic mass] 33.3 pg Critically high 27.0-3 1.3 [facility] Comment on above: Performed By: #### C BCWD #### [facility] [address] [place] [address] MCHC (RBC) [Mass/Vol] 34.0 % Normal 33.0-37.0 [facility] Comment on above: Performed By: #### C BCWD #### [facility] [address] [place] [address] MCV (RBC) [Entitic vol] 98.0 fL Normal 80.0-100.0 M [facility] Comment on above: Performed By: #### C BCWD #### [facility] [address] [place] [address] Monocytes (Bld) [#/Vol] 1.2 10*3/uL Critically high 0.2-0. 8 [facility] Comment on above: Performed By: #### C BCWD #### [facility] [address] [place] [address] Monocytes/100 WBC (Bld) 10.8 % Normal M [facility] Comment on above: Performed By: #### C BCWD #### [facility] [address] [place] [address] Neutrophils (Bld) [#/Vol] 7.8 10*3/uL Critically high 1.4-6.5 [facility] Comment on above: Performed By: #### C BCWD #### [facility] [address] [place] [address] Neutrophils/100 WBC (Bld) 71.2 % Normal [facility] Comment on above: Performed By: #### C BCWD #### [facility] [address] [place] [address] Platelets (Bld) [#/Vol] 232 10*3/uL Normal 130-400 [facility] Comment on above: Performed By: #### C BCWD #### [facility] [address] [place] [address] RBC (Bld) [#/Vol] 3.98 10*6/uL Low 4.70-6.10 [facility] Comment on above: Performed By: #### C BCWD #### [facility] [address] [place] [address] WBC (Bld) [#/Vol] 10.9 10*3/uL Critically high 4.8-10.8 [facility] Comment on above: Performed By: #### C BCWD #### [facility] [address] [place] [address] Hemoglobin A1con 10-25-2020 HbA1c (Bld) [Mass fraction] 12.1 % Critically high 4.8-5.9 [facility] Comment on above: Performed By: #### A 1C ####[facility] [place] [phone] HbA1c (Bld) [Mass fraction] 12.1 % High 4.8 - 5.9 % [place] Interpretation and review of laboratory results Abnormal [place] POCT Glucoseon 10-25-2020 Glucose [Mass/Vol] 372 mg/dL Critically high 60-115 M [facility] Comment on above: Performed By: #### P GLU #### [facility] [address] [place] [address] POC Performed on ACCU-CHEK Normal [facility] Comment on above: Result Comment: Noti bulmaro RN or MD Performed By: #### P GLU #### [facility] [address] [place] [address] Glucose [Mass/Vol] 372 mg/dL High 60 - 115 mg/dl [place] Interpretation and review of laboratory results Abnormal [place] Performed on ACCU-CHEK [place] Comment on above: Notified RN or MD Glucose [Mass/Vol] 246 mg/dL Critically high 60-115 M [facility] Comment on above: Performed By: #### P GLU #### [facility] [address] [place] [address] POC Performed on ACCU-CHEK Normal [facility] Comment on above: Performed By: #### P GLU #### [facility] [address] [place] [address] Glucose [Mass/Vol] 246 mg/dL High 60 - 115 mg/dl [place] Interpretation and review of laboratory results [place]normal [place] Performed on ACCU-CHEK [place] FL LESS THAN 1 HOURon 2020 FL [...] Mickey Branch DO 10/26/20 Final result Normal [facility] OPERATIVE [place] [address] OPERATIVE REPORT PATIENT NAME: ANMOL REYNOLDS : 1960 [employer] REC NO: [id number] ROOM: ACCOUNT NO: [id number] ADMIT DATE: 10/24/2020 PROVIDER: Opal Vigil MD DATE OF PROCEDURE: 10/24/2020 PREOPERATIVE DIAGNOSIS: L2-3, L3-4, L4-5 canal stenosis with neurogenic claudication. POSTOPERATIVE DIAGNOSIS: L2-3, L3-4, L4-5 canal stenosis with neurogenic claudication. OPERATION PERFORMED: Left and bilateral L2-3, L3-4, L4-5 microdecompressions. SURGEON: Oapl Vigil MD ANESTHESIA: General endotracheal anesthesia. OPERATIVE [...] tolerated well. OPAL VIGIL MD [id number] Doc#: [id number] CC: Normal [facility] POCT Glucoseon 10-24-2020 Glucose [Mass/Vol] 439 mg/dL Critically high 60-115 M [facility] Comment on above: Performed By: #### P GLU #### [facility] [address] [facility] [address] POC Performed on ACCU-CHEK [facility] Comment on above: Result Comment: Karina chamberlain RN or Performed By: #### P GLU #### [facility] [address] [facility] [address] Glucose [Mass/Vol] 439 mg/dL Critically high 60 - 1 15 mg/dl [facility] [place] Interpretation and review of laboratory results Abnormal [place] Performed on ACCU-CHEK [place] Comment on above: Notified RN or MD Glucose [Mass/Vol] 251 mg/dL Critically high 60-115 M [facility] Comment on above: Performed By: #### P GLU #### [facility] [address] [place] [address] POC [facility] Normal [facility] Comment on above: Performed By: #### P GLU #### [facility] [address] [place] [address] Glucose [Mass/Vol] 251 mg/dL High 60 - 115 mg/dl [place] Interpretation and review of laboratory results Abnormal [place] Performed on ACCU-CHEK [place] Glucose [Mass/Vol] 299 mg/dL Critically high 60-115 M [facility] Comment on above: Performed By: #### P GLU #### [facility] [address] [place] [address] POC [facility] on [facility] Comment on above: Performed By: #### P GLU #### [facility] [address] [place] [address] Glucose [Mass/Vol] 299 mg/dL High 60 - 115 mg/dl [place] Interpretation and review of laboratory results Abnormal [place] Performed on ACCU-CHEK [place] COVID-19, NAAon 10-19-2020 COVID-19, JOSSY Not Detected Normal Not Detect [facility] Comment on above: Result Comment: This nucleic acid amplification test was developed and its performance characteristics determined by [employer]. Nucleic acid amplification tests include PCR and [...] detected) result in this assay. Performed at: [facility] [address] [facility], [place] [id number] Appeals Examiner: Carmela Sue MD, Phone: [phone] Performed By: #### I RCOV #### [facility] [address] [place] [address] COVID-19, NAAon 10-18-2020 Source Swab Anterior nares Normal [facility] Comment on above: Performed By: #### I RCOV #### [facility] [address] [place] [address] Basic Metabolic Panelon 10-05 Anion gap [Moles/Vol] 14 mmol/L Normal 9-15 [facility] Comment on above: Performed By: #### B MP #### [facility] [address] [place] [address] Calcium [Mass/Vol] 9.3 mg/dL Normal 8.5-9.9 [facility] Comment on above: Performed By: #### B MP #### [facility] [address] [place] [address] Chloride [Moles/Vol] 100 mmol/L Normal 95-107 [facility] Comment on above: Performed By: #### B MP #### [facility] [address] [place] [address] CO2 [Moles/Vol] 23 mmol/L Normal 20-31 [facility] Comment on above: Performed By: #### B MP #### [facility] [address] [place] [address] Creatinine [Mass/Vol] 0.57 mg/dL Low 0.70-1.20 [facility] Comment on above: Performed By: #### B MP #### [facility] [address] [place] [address] GFR/1.73 sq M predicted among blacks MDRD (S/P/Bld) [Vol rate/Area] mL/min/{1.73_m2} Normal >60 [facility] Comment on above: Result Comment: >60 mL/min/1.73m2 EGFR, calc. for ages 18 and older using the MDRD formula (not corrected for weight), is valid for stable renal function. Performed By: #### B MP #### [facility] [address] [place] [address] GFR/1.73 sq M.predicted MDRD (S/P/Bld) [Vol rate/Area] mL/min/{1.73_m2} Normal >60 [facility] Comment on above: Result Comment: >60 mL/min/1.73m2 EGFR, calc. for ages 18 and older using the MDRD formula (not corrected for weight), is valid for stable renal function. Performed By: #### B MP #### [facility] [address] [place] [address] Glucose [Mass/Vol] 275 mg/dL Critically high 70-99 M [facility] Comment on above: Performed By: #### B MP #### [facility] [address] [place] [address] Potassium [Moles/Vol] 4.2 mmol/L Normal 3.4-4.9 [facility] Comment on above: Performed By: #### B MP #### [facility] [address] [place] [address] Sodium [Moles/Vol] 137 mmol/L Normal 135-144 [facility] Comment on above: Performed By: #### B MP #### [facility] [address] [place] [address] Urea nitrogen [Mass/Vol] 11 mg/dL Normal 6-20 [facility] Comment on above: Performed By: #### B MP #### [facility] [address] [place] [address] CBC With Platelet No Differe ntialon 10-15-2020 Erythrocyte distribution width (RBC) [Ratio] 12.7 % Normal 11.5-14.5 [facility] Comment on above: Performed By: #### C BCND #### [facility] [address] [place] [address] Hematocrit (Bld) [Volume fraction] 50.9 % Normal 42.0-52.0 [facility] Comment on above: Performed By: #### C BCND #### [facility] [address] [place] [address] Hemoglobin (Bld) [Mass/Vol] 17.4 g/dL Normal 14.0-18.0 [facility] Comment on above: Performed By: #### C BCND #### [facility] [address] [place] [address] MCH (RBC) [Entitic mass] 33.8 pg Critically high 27.0-3 1.3 [facility] Comment on above: Performed By: #### C BCND #### [facility] [address] [place] [address] MCHC (RBC) [Mass/Vol] 34.2 % Normal 33.0-37.0 [facility] Comment on above: Performed By: #### C BCND #### [facility] [address] [place] [address] MCV (RBC) [Entitic vol] 98.8 fL Normal 80.0-100.0 M [facility] Comment on above: Performed By: #### C BCND #### [facility] [address] [place] [address] Platelets (Bld) [#/Vol] 308 10*3/uL Normal 130-400 [facility] Comment on above: Performed By: #### C BCND #### [facility] [address] [place] [address] RBC (Bld) [#/Vol] 5.15 10*6/uL Normal 4.70-6.10 [facility] Comment on above: Performed By: #### C BCND #### [facility] [address] [place] [address] WBC (Bld) [#/Vol] 9.6 10*3/uL Normal 4.8-10.8 [facility] Comment on above: Performed By: #### C BCND #### [facility] [address] [place] [address] Partial Thromboplastin Timeo n 10-15-2020 aPTT Coag (Bld) [Time] 33.9 s Normal 24.4-36.8 [facility] Comment on above: Result Comment: Effe ctive 08/08/2020: Heparin Therapeutic Range: 64.0 ? 98.0 seconds. Performed By: #### P TT #### [facility] [address] [place] [address] Prothrombin Timeon INR Coag (PPP) [Relative time] 0.9 {INR} Normal [facility] Comment on above: Performed By: #### P T #### [facility] [address] [place] [address] PT Coag (PPP) [Time] 12.6 s Normal 12.3-14.9 [facility] Comment on above: Performed By: #### P T #### [facility] [address] [place] [address] MRI Spine Lumbar w/ + w/o Co ntraston 06-15-2018 MRI Spine Lumbar w/ + w/o Contrast Patient Name: ANMOL REYNOLDS MRI Exam Date/Time 06/14/2018 15:59:06 EDT Exam MRI Spine Lumbar w/ + w/o Contrast Ordering Physician [id number] MELITON MCWILLIAMS Accession Number [id number] CPT4 Codes 02722 () Reason For Exam lt leg radiculopathy [...] Transcribed Date and Time: 06/15/2018 8:33 Normal [facility] Glucose, WB POCon 08-05-2017 Glucose mass conc 179 mg/dL High 70-100 [facility] Comment on above: Performed By: #### 1 [id number] ####[facility] [address] [place] [address] Glucose mass conc 194 mg/dL High 70-100 [facility] Comment on above: Performed By: #### 1 [id number] ####[facility] [address] [place] [address] SPINE LUMBAR SINGLE VIEWon 1 10-05-2016 SPINE LUMBAR SINGLE VIEW DATE OF EXAM: N 2016 1:18PMCLINICAL HISTORY/ Name: GIVEN, BRIANSTUDY:SPINE LUMBAR SINGLE VIEW; 08/05/2017 1:18 pmINDICATION:intra op.COMPARISON:None.AC CESSION NUMBER(S):[id number] RDERING CLINICIAN:GALE HAZENFINDINGS:Single lateral view of the lumbar spine during lumbar spine surgery. Surgical marker at L5-S1 level. Fluoroscopic time is 0.05 sec.CONCLUSION: IMPRESSION:Fluoroscop ic image of the lumbar spine during surgery. Please refer to the surgical note for further details. Normal [facility] CBC With Differentialon 07-07 Basophils Auto #/vol (Bld) 0.02 10*3/uL Normal 0.01-0.09 [facility] Comment on above: Performed By: #### 2 [id number] ####[facility] [address] [place] [address] Basophils/100 WBC Auto (Bld) 0.2 % Normal 0.0-1.3 [facility] Comment on above: Performed By: #### 2 [id number] ####[facility] [address] [place] [address] Eosinophils 0.02 10*3/uL Normal 0.01-0.46 [facility] Comment on above: Performed By: #### 2 [id number] ####[facility] [address] [place] [address] Eosinophils/100 leukocytes 0.2 % Normal 0.0-6.7 [facility] Comment on above: Performed By: #### 2 [id number] ####[facility] [address] [place] [address] Erythrocyte distribution width Auto Ratio (RBC) 12.5 % Normal 12.0-15.4 [facility] Comment on above: Performed By: #### 2 [id number] ####[facility] [address] [place] [address] Erythrocytes (RBC) 0.00 10*3/uL Normal [facility] Comment on above: Performed By: #### 2 [id number] ####[facility] [address] [place] [address] Erythrocytes (RBC) 5.10 10*6/uL Normal 4.08-6.37 [facility] Comment on above: Performed By: #### 2 [id number] ####[facility] [address] [place] [address] Erythrocytes (RBC) 0.0 /100{WBCs} Normal [facility] Comment on above: Performed By: #### 2 [id number] ####[facility] [address] [place] [address] Hematocrit (HCT) 49.7 % Normal 38.4-54.9 [facility] Comment on above: Performed By: #### 2 198325 ####[facility] [address] [place] [address] Hemoglobin mass conc (Bld) 17.2 g/dL Normal 12.8-17.7 [facility] Comment on above: Performed By: #### 2 644555 ####[facility] [address] [place] [address] Imm Grans Absolute 0.03 10*3/uL Normal 0.00-0.21 [facility] Comment on above: Performed By: #### 2 168981 ####[facility] [address] [place] [address] Immature granulocytes #/vol (Bld) 0.3 % Normal [facility] Comment on above: Performed By: #### 2 [id number] ####[facility] [address] [place] [address] Lymphocytes 1.28 10*3/uL Normal 0.40-2.84 [facility] Comment on above: Performed By: #### 2 [id number] ####[facility] [address] [place] [address] Lymphocytes/100 leukocytes 11.9 % Normal 9.4-41.1 [facility] Comment on above: Performed By: #### 2 508402 ####[facility] [address] [place] [address] MCH 33.7 pg High 27.5-32.9 [facility] Comment on above: Performed By: #### 2 [id number] ####[facility] [address] [place] [address] MCHC mass conc (RBC) 34.6 g/dL Normal 30.5-35.4 [facility] Comment on above: Performed By: #### 2 100546 ####[facility] [address] [place] [address] MCV 97.5 fL Normal 83.3-98.2 [facility] Comment on above: Performed By: #### 2 777768 ####[facility] Aoc[address] [place] [address] Monocytes 0.85 10*3/uL Normal 0.25-1.33 [facility] Comment on above: Performed By: #### 2 659348 ####[facility] [address] [place] [address] Monocytes/100 leukocytes 7.9 % Normal 3.0-16.2 [facility] Comment on above: Performed By: #### 2 201273 ####[facility] [address] [place] [address] Neutrophils 8.54 10*3/uL High 2.22-7.53 [facility] Comment on above: Performed By: #### 2 224404 ####[facility] [address] [place] [address] Neutrophils/100 leukocytes 79.5 % High 46.2-79.1 [facility] Comment on above: Performed By: #### 2 126849 ####[facility] Xqs[address] [place] [address] Platelet mean volume (PMV) 10.4 fL Normal 9.9-12.1 [facility] Comment on above: Performed By: #### 2 616283 ####[facility] [address] [place] [address] Platelets 334 10*3/uL Normal 155-404 [facility] Comment on above: Performed By: #### 2 861494 ####[facility] [address] [place] [address] RDW SD 45.3 fL Normal 39.3-48.6 [facility] Comment on above: Performed By: #### 2 910305 ####[facility] [address] [place] [address] WBC (Leukocytes) 10.7 10*3/uL Normal 4.2-11.0 [facility] Comment on above: Performed By: #### 2 470871 ####[facility] [address] [place] [address] CHEST 2 VIEWS PA AND LATon 1 CHEST 2 VIEWS PA AND LAT DATE OF EXAM: O ct 2016 8:43AMCLINICAL HISTORY/ Name: GAIL, BRIANSTUDY:CHEST 2 VIEWS PA AND LAT; 08/03/2017 8:43 amINDICATION:preop.CO MPARISON:None.ACCESSI ON NUMBER(S):[id number] [facility] CLINICIAN:OPAL MONGE:There is no definite acute infiltrate. The costophrenic angles are not blunted. There is no pneumothorax. The heart size and mediastinal width are within gross limits of normal. No prior chest radiograph is available for comparison.CONCLUSION : IMPRESSION:No definite acute pulmonary findings Normal [facility] Comprehensive Metabolic Pane antonio 08-03-2017 Alanine aminotransferase (ALT) 18 U/L Normal 10-52 [facility] Comment on above: Performed By: #### 1 [id number] ####[facility] [address] [place] [address] Albumin 4.9 g/dL Normal 3.4-5.0 [facility] Comment on above: Performed By: #### 1 [id number] ####[facility] [address] [place] [address] Albumin/Globulin Ratio 2.0 {ratio} Normal 0.9-2.4 [facility] Comment on above: Performed By: #### 1 682150 ####[facility] [address]js[address] [place] [address] Alkaline phosphatase (ALP) 119 U/L High 45-117 [facility] Comment on above: Performed By: #### 1 636878 ####[facility] [address] [place] [address] Anion gap 15 mmol/L Normal 10-20 [facility] Comment on above: Performed By: #### 1 [id number] ####[facility] [address] [place] [address] Aspartate aminotransferase (AST) 15 U/L Normal 13-39 [facility] Comment on above: Performed By: #### 1 369646 ####[facility] [address] [place] [address] Bicarbonate (HCO3) 22 mmol/L Normal 21-32 [facility] Comment on above: Performed By: #### 1 568124 ####[facility] [address] [place] [address] Bilirubin (total) 1.0 mg/dL Normal 0.0-1.2 [facility] Comment on above: Performed By: #### 1 472985 ####[facility] [address] [place] [address] BUN/Creatinine Ratio 19 mg/mg Normal 5-25 [facility] Comment on above: Performed By: #### 1 043715 ####[facility] [address] [place] [address] Calcium 10.0 mg/dL Normal 8.6-10.3 [facility] Comment on above: Performed By: #### 1 356691 ####[facility] [address] [place] [address] Chloride 103 mmol/L Normal 98-107 [facility] Comment on above: Performed By: #### 1 010886 ####[facility] [address] [place] [address] Creatinine 0.64 mg/dL Normal 0.50-1.30 [facility] Comment on above: Performed By: #### 1 994758 ####[facility] [address] [place] [address] eGFR (MDRD) mL/min/{1.73_m2} Normal [facility] Comment on above: Result Comment: Inte rpretation for Chronic Kidney Disease:Stages 1&2 >60 Healthy or potential kidney damage.Mild decrease of GFR.Stage 3 30-59 Moderate decrease of GFR.Stage 4 15-29 Severe decrease of GFR.Stage 5 <15 Kidney failure or on dialysis. Performed By: #### 1 [id number] ####[facility] [address] [place] [address] Glucose mass conc 233 mg/dL High 70-100 [facility] Comment on above: Performed By: #### 1 887437 ####[facility] [address] [facility] [place] [address] Potassium molar conc 3.8 mmol/L Normal 3.5-5.1 [facility] Comment on above: Performed By: #### 1 467875 ####[facility] [address] [facility] [place] [address] Protein 7.4 g/dL Normal 6.4-8.2 [facility] Comment on above: Performed By: #### 1 314195 ####[facility] [address] [facility] [place] [address] Sodium 136 mmol/L Normal 136-145 [facility] Comment on above: Performed By: #### 1 559423 ####[facility] [address] [facility] [place] [address] Urea nitrogen 12 mg/dL Normal 6-23 [facility] Comment on above: Performed By: #### 1 637565 ####[facility] [address] [facility] [place] [address] ESR, Westergrenon 08-03-2017 ESR, Westergren 2 mm/h Normal 0-15 [facility] Comment on above: Performed By: #### 2 156961 ####[facility] [address] [facility] [place] [address] Prothrombin Time (PT) & Part ial Thromboplastin (PTT)on 08-03-2017 aPTT 29.2 s Normal 22.1-35.3 [facility] Comment on above: Result Comment: Hepa rin Therapeutic Range: 71 - 97 sec Performed By: #### P TPTT ####[facility] I[address] [facility] [place] [address] INR Coag RelTime (PPP) 0.84 {INR} Low 0.85-1.16 [facility] Comment on above: Result Comment: Coum john Therapy:1.5 - 2.0 Low Intensity Therapy2.0 - 3.0 Moderate Intensity Therapy2.5 - 3.5 High (1) Intensity Therapy3.0 - 4.0 High (2) Intensity Therapy Performed By: #### P TPTT ####[facility] [address] [place] [address] Prothrombin time (PT) Coag time (PPP) 11.4 s Normal 11.3-14.5 [facility] Comment on above: Performed By: #### P TPTT ####[facility] [address] [place] [address] Urinalysison 08-03-2017 Ascorbic Acid Negative Normal Negative [facility] Comment on above: Performed By: #### 1 515167 ####[facility] [address] [place] [address] Automated Urine Microscopy Not indicated Normal [facility] Comment on above: Performed By: #### 1 [id number] ####[facility] [address] [place] [address] Bilirubin Ql (U) Negative Normal Negative [facility] Comment on above: Performed By: #### 1 175611 ####[facility] [address] [place] [address] Blood Negative Normal Negative [facility] Comment on above: Performed By: #### 1 [id number] ####[facility] [address] [place] [address] Glucose mass conc mg/dL Abnormal Negative [facility] Comment on above: Performed By: #### 1 112944 ####[facility] [address] [place] [address] Protein Negative Normal Negative [facility] Comment on above: Performed By: #### 1 925653 ####[facility] [address] [place] [address] Urine, appearance Clear Normal Clear [facility] Comment on above: Performed By: #### 1 257741 ####[facility] [address] [place] [address] Urine, color Yellow Normal [facility] Comment on above: Performed By: #### 1 211018 ####[facility] [address] [place] [address] Urine, ketones presence Negative Normal Negative [facility] Comment on above: Performed By: #### 1 304556 ####[facility] [address] [place] [address] Urine, nitrite presence Negative Normal Negative [facility] Comment on above: Performed By: #### 1 774136 ####[facility] [address] [place] [address] Urine, pH 5.0 [pH] Normal 5.0-9.0 [facility] Comment on above: Performed By: #### 1 [id number] ####[facility] [address] [place] [address] Urine, specific gravity 1.033 Normal 1.003-1.035 [facility] Comment on above: Performed By: #### 1 670931 ####[facility] [address] [place] [address] Urine, urobilinogen <2.0 Normal Negative [facility] Comment on above: Performed By: #### 1 [id number] ####[facility] [address] [place] [address] WBC (Leukocytes) Negative Normal Negative [facility] Comment on above: Performed By: #### 1 486887 ####[facility] [address] [place] [address] DX LUMBOSACRAL SPINE, BENDIN G VIEWS ONLY, 2 OR 3 VIEWSon 05-27-2017 DX LUMBOSACRAL SPINE, BENDING VIEWS ONLY, 2 OR 3 VIEWS Performed at [facility] APPROVED BY: Robert Velarde [...] levels unchanged with flexion or extension. Normal [facility] MRI LUMBAR SPINE W/O CONTRAS Ton 05-27-2017 MRI LUMBAR SPINE W/O CONTRAST Performed at [facility] APPROVED BY: Jose Schumacher [...] at the L4-L5 and L5-S1 levels. Normal [facility] Vital Signs Date Time Vital Sign Value Performing Clinician Facility 04-28-2025 20:11-0400 Body temperature 97.3 [degF] Brad Campos MD Work Phone: [facility] 04-28-2025 20:11-0400 Diastolic blood pressure 64 mm[Hg] Brad Campos MD Work Phone: [facility] 04-28-2025 20:11-0400 Heart rate 76 /min Brad Campos MD Work Phone: [facility] 04-28-2025 20:11-0400 Respiratory rate 16 /min Brad Campos MD Work Phone: [facility] 04-28-2025 20:11-0400 SaO2% (BldA) [Mass fraction] 92 % Brad Campos MD Work Phone: [facility] 04-28-2025 20:11-0400 Systolic blood pressure 106 mm[Hg] Brad Campos MD Work Phone: [facility] 04-24-2025 13:34-0400 Body height 190.5 cm Brad Campos MD Work Phone: [facility] 04-22-2025 03:00-0400 Body mass index (BMI) [Ratio] 24.42 kg/m2 Brad Campos MD Work Phone: [facility] 04-22-2025 03:00-0400 Body weight 88.63 kg Brad Campos MD Work Phone: [facility] 03-14-2025 13:56-0400 Body temperature 98.01 [degF] Milad Goodson MD Work Phone: [facility] 03-14-2025 13:56-0400 Diastolic blood pressure 70 mm[Hg] Milad Goodson MD Work Phone: [facility] 03-14-2025 13:56-0400 Heart rate 84 /min Milad Goodson MD Work Phone: [facility] 03-14-2025 13:56-0400 Respiratory rate 20 /min Milad Goodson MD Work Phone: [facility] 03-14-2025 13:56-0400 SaO2% (BldA) [Mass fraction] 97 % Milad Goodson MD Work Phone: [facility] 03-14-2025 13:56-0400 Systolic blood pressure 107 mm[Hg] Milad Goodson MD Work Phone: [facility] 03-07-2025 08:54-0400 Diastolic blood pressure 52 mm[Hg] Yoana Altaf [employer] Work Phone: [facility] 03-07-2025 08:54-0400 Heart rate 68 /min Yoana Altaf [employer] Work Phone: [facility] 03-07-2025 08:54-0400 Systolic blood pressure 107 mm[Hg] Yoana Altaf [employer] Work Phone: [facility] 01-31-2025 13:27-0400 Body temperature 98.6 [degF] Milad Goodson MD Work Phone: [facility] 01-31-2025 13:27-0400 Diastolic blood pressure 90 mm[Hg] Milad Goodson MD Work Phone: [facility] 01-31-2025 13:27-0400 Heart rate 80 /min Milad Goodson MD Work Phone: [facility] 01-31-2025 13:27-0400 Respiratory rate 18 /min Milad Goodson MD Work Phone: [facility] 01-31-2025 13:27-0400 SaO2% (BldA) [Mass fraction] 95 % Milad Goodson MD Work Phone: [facility] 01-31-2025 13:27-0400 Systolic blood pressure 136 mm[Hg] Milad Goodson MD Work Phone: [facility] 06-13-2024 10:56-0400 Diastolic blood pressure 72 mm[Hg] [employer] 06-13-2024 10:56-0400 Heart rate 85 /min [employer] 06-13-2024 10:56-0400 Respiratory rate 18 /min [employer] 06-13-2024 10:56-0400 SaO2% (BldA) [Mass fraction] 98 % [employer] 06-13-2024 10:56-0400 Systolic blood pressure 114 mm[Hg] [employer] 05-22-2024 08:09-0400 Body temperature 96.8 [degF] TGR [employer] DO Work Phone: [facility] 05-22-2024 08:09-0400 Diastolic blood pressure 76 mm[Hg] [employer] Guerrero DO Work Phone: [facility] 05-22-2024 08:09-0400 Heart rate 70 /min TGR [employer] DO Work Phone: [facility] 05-22-2024 08:09-0400 Respiratory rate 16 /min [employer] DO Work Phone: [facility] 05-22-2024 08:09-0400 SaO2% (BldA) [Mass fraction] 99 % TGR [employer] DO Work Phone: [facility] 05-22-2024 08:09-0400 Systolic blood pressure 128 mm[Hg] [employer] Guerrero DO Work Phone: [facility] 05-19-2024 13:00-0400 Body mass index (BMI) [Ratio] 26.62 kg/m2 [employer] DO Work Phone: [facility] 05-19-2024 13:00-0400 Body weight 96.62 kg TGR [employer] DO Work Phone: [facility] 05-18-2024 01:26-0400 Body height 190.5 cm Rodney Guerrero DO Work Phone: [facility] 05-06-2024 17:08-0400 Body temperature 98.01 [degF] Joan Patel MD Work Phone: [facility] 05-06-2024 17:08-0400 Diastolic blood pressure 67 mm[Hg] Joan Patel MD Work Phone: [facility] 05-06-2024 17:08-0400 Heart rate 82 /min Joan Patel MD Work Phone: [facility] 05-06-2024 17:08-0400 Respiratory rate 16 /min Joan Patel MD Work Phone: [facility] 05-06-2024 17:08-0400 SaO2% (BldA) [Mass fraction] 91 % Joan Patel MD Work Phone: [facility] 05-06-2024 17:08-0400 Systolic blood pressure 114 mm[Hg] Joan Patel MD Work Phone: [facility] 05-05-2024 18:30-0400 Body height 190.5 cm Joan Patel MD Work Phone: [facility] 05-05-2024 18:30-0400 Body mass index (BMI) [Ratio] 26.62 kg/m2 Joan Patel MD Work Phone: [facility] 05-05-2024 18:30-0400 Body weight 96.62 kg Joan Patel MD Work Phone: [facility] 04-20-2024 11:39-0400 Body temperature 97.81 [degF] Ene Crawley MD Work Phone: [facility] 04-20-2024 11:39-0400 Diastolic blood pressure 81 mm[Hg] Ene Crawley MD Work Phone: [facility] 04-20-2024 11:39-0400 Heart rate 84 /min Ene Crawley MD Work Phone: [facility] 04-20-2024 11:39-0400 SaO2% (BldA) [Mass fraction] 97 % Ene Crawley MD Work Phone: [facility] 04-20-2024 11:39-0400 Systolic blood pressure 135 mm[Hg] Ene Crawley MD Work Phone: [facility] 04-20-2024 09:55-0400 Respiratory rate 18 /min Ene Crawley MD Work Phone: [facility] 04-19-2024 05:47-0400 Body mass index (BMI) [Ratio] 26.62 kg/m2 Ene Crawley MD Work Phone: [facility] 04-19-2024 05:47-0400 Body weight 96.6 kg Ene Crawley MD Work Phone: [facility] 04-17-2024 00:02-0400 Body height 190.5 cm Ene Crawley MD Work Phone: [facility] 01-29-2024 15:58-0400 Body height 190.5 cm Carlos Gillette MD Work Phone: [facility] 01-29-2024 15:58-0400 Body mass index (BMI) [Ratio] 22.5 kg/m2 Carlos Gillette MD Work Phone: [facility] 01-29-2024 15:58-0400 Body weight 81.65 kg Carlos Gillette MD Work Phone: [facility] 12-29-2023 14:56-0400 Body height 190.5 cm Carlos Gillette MD Work Phone: [facility] 12-29-2023 14:56-0400 Body mass index (BMI) [Ratio] 22.87 kg/m2 Carlos Gillette MD Work Phone: [facility] 12-29-2023 14:56-0400 Body weight 83.01 kg Carlos Gillette MD Work Phone: [facility] 05-23-2023 12:06-0400 Diastolic blood pressure 80 mm[Hg] Colt [employer] Work Phone: [facility] 05-23-2023 12:06-0400 Heart rate 80 /min [employer] Work Phone: [facility] 05-23-2023 12:06-0400 Respiratory rate 18 /min [employer] Work Phone: [facility] 05-23-2023 12:06-0400 SaO2% (BldA) [Mass fraction] 98 % [employer] Work Phone: [facility] 05-23-2023 12:06-0400 Systolic blood pressure 110 mm[Hg] [employer] Work Phone: [facility] 05-23-2023 07:54-0400 Body height 190.5 cm [employer]t [email or web address] Phone: [facility] 05-23-2023 07:54-0400 Body mass index (BMI) [Ratio] 22.5 kg/m2 [email or web address] Phone: [facility] 05-23-2023 07:54-0400 Body temperature 97.9 [degF] [employer] Work Phone: [facility] 05-23-2023 07:54-0400 Body weight 81.65 kg Colt [email or web address] Phone: [facility] 10-25-2020 00:47-0500 Body Temperature 97.7 [degF] [facility] [place] 10-25-2020 00:47-0500 BP Diastolic 59 mm[Hg] [facility] [place] 10-25-2020 00:47-0500 BP Systolic 100 mm[Hg] [facility] [place] 10-25-2020 00:47-0500 Pulse (Heart Rate) 80 /min [facility], [place] 10-25-2020 00:47-0500 Pulse Oximetry 97 % [facility] [place] 10-25-2020 00:47-0500 Respiratory Rate 16 /min [facility] 10-24-2020 08:01-0500 BMI (Body Mass Index) 25.68 kg/m2 [facility] [place] 10-24-2020 08:01-0500 Body weight 90.72 kg [facility] [place], [place] 10-24-2020 08:01-0500 Height 188 cm [facility] [place] [place] Encounters Encounter Date Encounter Type Care Provider Facility Start: 05-03-2025 ambulatory Tab MURO Faci lity:[facility] Start: 05-01-2025 ambulatory Tab MURO Faci lity:[facility] Start: 04-21-2025 End: 04-28-2025 Evaluation and management of inpatient Brad Campos MD Work Phone: [facility] Medical Unit [address] Comment on above: Other acute osteomye litis, other site (HCC) (Primary Dx); Pressure injury of coccygeal region, stage 3 ([facility]); Lumbar stenosis with neurogenic claudication; Osteoarthritis, unspecified osteoarthritis type, unspecified site; Other intervertebral disc displacement, lumbar region Start: 04-18-2025 ambulatory Tab Celi MURO Faci lity:[facility] Start: 04-16-2025 ambulatory Tab MURO Faci lity:[facility] Start: 03-24-2025 End: 03-24-2025 Telephone encounter Anmol Herbert MD Work Phone: Urology Start: 03-20-2025 End: 03-20-2025 ambulatory ANMOL HERBERT Facility:[facility] Start: 03-14-2025 End: 03-14-2025 Patient encounter procedure Milad Goodson MD Work Phone: Plastic Surgery Comment on above: Chronic osteomyeliti s (HCC) (Primary Dx); Severe protein-calorie malnutrition (HCC); Ureteral calculi; Complicated UTI (urinary tract infection); Neurogenic bladder; Type 2 diabetes mellitus with hyperglycemia, with long-term current use of insulin (HCC) Start: 03-14-2025 End: 03-14-2025 ambulatory MILAD GOODSON Facility:[facility] Start: 03-07-2025 End: 03-07-2025 Telephone encounter Yoana Altaf PRESS BREAKER - AMPOULE FILLER AND SEALER Work Phone: [facility] Comment on above: Other Start: 03-07-2025 End: 03-07-2025 Office outpatient visit 25 minutes Yoana Altaf PRESS BREAKER - AMPOULE FILLER AND SEALER Work Phone: [facility] Comment on above: Ureteral stent prese nt (Primary Dx); Kidney stone; Hydronephrosis, unspecified hydronephrosis type Start: 03-07-2025 End: 03-07-2025 ambulatory YOANA VILCIHSN [facility] Start: 03-01-2025 End: 03-01-[address] Ambrosio Monroy DO Work Phone: [facility] Work Phone: Start: 03-01-2025 End: 03-01-2025 Departed Referred Tab Dupont -Tierra Greenwaldasa SULLIVAN Start: 03-01-2025 Registered Referred Tab Dupont - Tierra Adeliaasa SULLIVAN Start: 03-01-2025 End: 03-01-2025 ambulatory Tab MURO Facility:[facility] Start: 02-19-2025 End: 03-08-2025 Telephone encounter Anmol Herbert MD Work Phone: [place] [facility] Comment on above: Hospital F/U Start: 02-16-2025 End: 02-22-2025 Evaluation and management of inpatient HOWARD GAMA Facility:[facility] Start: 02-15-2025 End: 02-15-[address] Ambrosio Monroy DO Work Phone: [facility] Work Phone: Start: 02-15-2025 End: 02-15-2025 Departed Referred Tab Weaver Adeliaasa SULLIVAN Start: 02-15-2025 End: 02-15-2025 ambulatory Tab MURO Facility:[facility] Start: 01-31-2025 End: 01-31-2025 Patient encounter [...] Start: 01-31-2025 End: 01-31-2025 ambulatory MILAD GOODSON Facility:[facility] Start: 01-09-2025 End: 01-09-2025 Departed Referred Tab SULLIVAN Start: 01-09-2025 End: 01-09-2025 ambulatory Tab MURO Facility:[facility] Start: 01-04-2025 ambulatory KRISTINE Mendoza ity:[facility] Start: 01-04-2025 End: 01-04-2025 Subsequent hospital visit by physician [facility] (1.5t) Radiology Start: 12-07-2024 End: 12-07-[address] Ambrosio Monroy DO Work Phone: [facility] Work Phone: Start: 12-07-2024 End: 12-07-2024 Departed Referred Tab SULLIVAN Start: 12-07-2024 Registered Referred Tab SULLIVAN Start: 12-07-2024 End: 12-07-2024 ambulatory Tab MURO Facility:[facility] Start: 11-30-2024 End: 11-30-[address] Ambrosio Monroy DO Work Phone: [facility] Work Phone: Start: 11-30-2024 End: 11-30-2024 Departed Referred Tab SULLIVAN Start: 11-30-2024 Registered Referred Tab SULLIVAN Start: 11-29-2024 End: 11-30-[address] Ambrosio Monroy DO Work Phone: [facility] Work Phone: Start: 11-29-2024 End: 11-29-2024 Departed Referred Daisy Costello MD -[employer] Start: 11-29-2024 End: 11-29-2024 ambulatory Daisy MURO Facility:[facility] Start: 11-08-2024 End: 11-08-2024 Office outpatient visit 25 minutes Faisal Simeon DO Work Phone: [facility] PM&R Comment on above: Paraplegia (HCC) (Pr imary Dx); Neurogenic bladder; Gross hematuria; Neuropathic pain; Pressure injury of skin, unspecified injury stage, unspecified location Start: 11-08-2024 End: 11-08-2024 ambulatory FAISAL [place] Facility:[facility] Start: 10-25-2024 End: 11-20-2024 Telephone encounter Carlos Gillette MD Work Phone: [facility] Comment on above: Appointment Start: 10-11-2024 End: 01-10-2025 Transcribe Orders Kristine Howell PRESS BREAKER - AMPOULE FILLER AND SEALER Work Phone: [facility] Central Scheduling Comment on above: Pressure ulcer of sa cral region, unspecified stage (Primary Dx) Start: 10-10-2024 End: 10-10-2024 Departed Referred Tab Dupont -Guthrie Adelia MOOI Start: 10-10-2024 End: 10-10-2024 ambulatory Tab MURO Facility:[facility] Start: 10-03-2024 End: 10-03-2024 Departed Referred Tab Dupont -Guthrie Adelia MOOI Start: 10-03-2024 End: 10-03-2024 ambulatory Tab MURO Facility:[facility] Start: 09-30-2024 End: 09-30-2024 Office outpatient visit 25 minutes Faisal Simeon DO Work Phone: [facility] Urodynamics Comment on above: Neurogenic bladder ( Primary Dx); Paraplegia (HCC); Urinary retention; Gross hematuria Start: 09-30-2024 ambulatory FAISAL SIMEON Facility:[facility] Start: 09-29-2024 End: 09-29-2024 Dep[facility]ed [facility] Start: 09-29-2024 End: 09-29-2024 ambulatory Ambrosio Monroy Facility:[facility] Start: 09-20-2024 End: 09-20-2024 Departed Referred Tab Dupont Guthriemohan Delvalle [facility] Start: 09-20-2024 End: 09-20-2024 ambulatory Ambrosio Monroy Facility:[facility] Start: 08-22-2024 End: 08-22-2024 Office outpatient new 45 minutes Giuliano Shutlz DO Work Phone: [facility] Rheumatology Comment on above: Osteoporosis, unspec ified osteoporosis type, unspecified pathological fracture presence (Primary Dx) Start: 08-22-2024 End: 08-22-2024 ambulatory UNKNOWN PROVIDER Facility:[facility] Start: 08-12-2024 End: 08-12-2024 Telephone encounter Angelica Anne RN [facility] Rheumatology (Arthritis) Start: 08-01-2024 End: 08-01-2024 Office outpatient visit 25 minutes Sci Fellow [facility] [place] PM[facility]R Comment on above: Paraplegia (HCC) (Pr imary Dx); Neuropathic pain; Neurogenic bowel; Reflex neurogenic bladder Start: 08-01-2024 End: 08-01-2024 ambulatory UNKNOWN PROVIDER Facility:[facility] Start: 07-27-2024 End: 07-27-2024 Telephone encounter Angelica Anne RN [facility] Rheumatology (Arthritis) Start: 07-13-2024 End: 07-13-2024 Telephone encounter Angelica Anne RN [facility] Rheumatology (Arthritis) Start: 07-10-2024 End: 07-10-2024 ambulatory UNKNOWN PROVIDER Facility:[facility] Start: 07-10-2024 End: 07-10-2024 Subsequent hospital visit by physician Jennifer Ip/Op Mri 2 [facility] Radiology Comment on above: Sacral insufficiency fracture, initial encounter Start: 07-04-2024 End: 07-04-2024 ambulatory Ambrosio Monroy Facility:[facility] Start: 07-01-2024 End: 07-01-2024 ambulatory OTIS MEJIA Facility:[facility] Start: 06-15-2024 End: 06-15-2024 Telephone encounter Carlos Gillette MD Work Phone: [facility] Comment on above: Reschedule Start: 06-15-2024 End: 06-15-2024 ambulatory Tab MURO Facility:[facility] Start: 06-14-2024 End: 06-14-2024 Telephone encounter Vladimir Asher [facility] Start: 06-13-2024 End: 06-13-2024 Office outpatient new 60 minutes Sci Fellow [facility] PM&R Comment on above: Paraplegia (HCC) (Pr imary Dx); Reflex neurogenic bladder; Neuropathic pain; Neurogenic bowel Start: 06-13-2024 End: 06-13-2024 Office outpatient visit 25 minutes Sci Fellow [facility] PM&R Comment on above: Paraplegia (HCC) (Pr imary Dx); Reflex neurogenic bladder; Neuropathic pain; Neurogenic bowel; Urinary retention Start: 06-13-2024 End: 06-16-2024 ambulatory UNKNOWN PROVIDER Facility:[facility] Start: 05-30-2024 ambulatory Tab MURO Faci lity:[facility] Start: 05-17-2024 End: 05-22-2024 Evaluation and management of inpatient Rodney Guerrero Work Phone: [facility] DEMI 6W Comment on above: Positive blood cultu res (Primary Dx); Lumbar stenosis with neurogenic claudication; Osteoarthritis, unspecified osteoarthritis type, unspecified site; Other intervertebral disc displacement, lumbar region; Pressure injury of coccygeal region, stage 3 (HCC) Start: 05-16-2024 End: 05-16-2024 ambulatory Tab MURO Facility:[facility] Start: 05-13-2024 End: 05-13-2024 Telephone encounter Sarita Benoit LPN [facility] Medical Group Infectious Disease Comment on above: Labs Only Start: 05-11-2024 End: 05-15-2024 Office outpatient new 45 minutes Otis Mejia MD Work Phone: [facility] Orthopedic Spine Comment on above: Sacral insufficiency fracture, initial encounter (Primary Dx); Failed back surgical syndrome Start: 05-11-2024 End: 05-11-2024 Subsequent hospital visit by physician Jennifer Op Xray 2 [facility] Radiology Comment on above: Sacral insufficiency fracture, initial encounter Start: 05-11-2024 End: 05-15-2024 ambulatory UNKNOWN PROVIDER Facility:[facility] Start: 05-10-2024 End: 05-10-2024 Telephone encounter Delaney Nunn RN [facility] Line Comment on above: Update Start: 05-09-2024 End: 05-09-2024 ambulatory Tab Celi JINA Facility:[facility] Start: 05-05-2024 End: 05-06-2024 Subsequent hospital visit by physician Joan Patel MD Work Phone: [facility] Medical Surgical Unit MSU H5 Comment on above: Bladder calculus (Pr imary Dx); Bilateral ureteral calculi; Calculus of ureter Start: 05-05-2024 End: 05-06-2024 Unknown JOAN PATEL [facility] Start: 05-04-2024 End: 05-06-2024 Telephone encounter Carlos Gillette MD Work Phone: [facility] Pain Management Comment on above: Reschedule Start: 04-15-2024 End: 04-15-2024 ambulatory Joe Hammer PRESS BREAKER - AMPOULE FILLER AND SEALER Work Phone: [facility] Urology Comment on above: Bilateral ureteral c alculi (Primary Dx); Bladder calculus Start: 04-15-2024 End: 04-25-2024 Telephone encounter Joe Hammer PRESS BREAKER - AMPOULE FILLER AND SEALER Work Phone: [facility] Urology Comment on above: Surgery Scheduling Start: 04-14-2024 End: 04-20-2024 Evaluation and management of inpatient Ene Crawley MD Work Phone: [facility] Card[facility] Progressive [facility] Unit PCU 2E Start: 04-06-2024 End: 04-28-2024 Telephone encounter Vaishali Pierre DO Work Phone: [facility] PM&R Start: 04-05-2024 End: 04-05-2024 ambulatory UNKNOWN PROVIDER Facility:[facility] Start: 04-05-2024 End: 04-05-2024 Subsequent hospital visit by physician Jennifer Ip/Op Mri 1 [facility] Radiology Comment on above: Paraplegia (HCC); History of lumbar fusion Start: 02-10-2024 End: 02-11-2024 ambulatory UNKNOWN PROVIDER Facility:[facility] Start: 02-10-2024 End: 02-26-2024 Office outpatient new 45 minutes Vaishali Placeway DO Work Phone: [facility] PM&R Comment on above: Paraplegia (HCC) (Pr imary Dx); History of lumbar fusion Start: 02-10-2024 ambulatory UNKNOWN PROVIDER Facili ty:[facility] Start: 01-29-2024 End: 01-29-2024 Office outpatient visit 25 minutes Carlos Gillette MD Work Phone: [facility] Pain Management Comment on above: Injury of lumbar spi nal cord, sequela (HCC) (Primary Dx); Neuropathic pain Start: 01-15-2024 Registered Referred [facility] MOOI Start: 01-07-2024 End: 01-07-2024 ambulatory [facility] Work Phone: Start: 01-07-2024 End: 01-07-2024 Departed Referred [facility] Start: 01-07-2024 Registered Referred [facility] Start: 01-04-2024 End: 01-04-2024 ambulatory [facility] Work Phone: Start: 01-04-2024 End: 01-04-2024 Departed Referred [facility] Start: 01-04-2024 Registered Referred [facility] Start: 12-31-2023 End: 12-31-2023 ambulatory [facility] Work Phone: Start: 12-31-2023 End: 12-31-2023 Departed Referred [facility] Start: 12-29-2023 End: 12-29-2023 Office outpatient new 45 minutes Carlos Gillette MD Work Phone: [facility] Pain Management Comment on above: Spinal cord injury, lumbar, without spinal bone injury, sequela (HCC) (Primary Dx); Neuropathic pain Start: 12-04-2023 End: 12-04-2023 ambulatory [facility] Work Phone: Start: 12-04-2023 End: 12-04-2023 Departed Referred [facility] Start: 10-25-2023 End: 10-25-2023 Departed Referred [facility] Start: 09-04-2023 Telephone encounter Carlos israel MD Work Phone: [facility] Pain Management Comment on above: Referral Start: 08-19-2023 Telephone encounter Carlos israel MD Work Phone: [facility] Pain Management Comment on above: Referral (Confirm Re ceipt of Referral for SYSTEM SAFETY ENGINEER Appt Scheduling) Start: 08-10-2023 Registered Referred [facility] Start: 08-07-2023 Registered Referred [facility] Start: 08-06-2023 Telephone encounter Carlos israel MD Work Phone: [facility] Pain Management Comment on above: new patient appointm ent Start: 07-31-2023 End: 07-31-2023 ambulatory [facility] Work Phone: Start: 07-31-2023 End: 07-31-2023 Departed Referred [facility] Start: 06-29-2023 End: 06-29-2023 Departed Referred [facility] Start: 06-01-2023 End: 06-01-2023 ambulatory [facility] Work Phone: Start: 06-01-2023 End: 06-01-2023 Departed Referred [facility] Start: 05-23-2023 End: 05-23-2023 Emergency department patient visit Colt Klein DO Work Phone: [facility] ED Comment on above: Urinary tract infect ion associated with indwelling urethral catheter, initial encounter (HCC) (Primary Dx) Start: 05-04-2023 End: 05-04-2023 ambulatory [facility] Work Phone: Start: 05-04-2023 End: 05-04-2023 Departed Referred [facility] Start: 05-04-2023 Registered Referred [facility] Start: 03-25-2023 End: 03-25-2023 ambulatory [facility] Work Phone: Start: 03-25-2023 End: 03-25-2023 Departed Referred [facility] Start: 04-21-2022 ambulatory Cindi Cuellar PA-C Work Phone: [facility] [place] Start: 02-14-2022 End: 02-14-2022 Subsequent hospital visit by physician Mri 2 [facility] (I-Stat/1.5t) [facility] Comment on above: abscess Start: 06-11-2021 AUDIT Byron Whitlock DO Work Phone: [facility] Dougie MARYAMI Work Phone: Start: 10-24-2020 End: 10-25-2020 Patient encounter procedure OPAL VIGIL [facility] Start: 10-24-2020 End: 10-27-2020 [facility] Start: 10-24-2020 End: 10-25-2020 Subsequent hospital visit by physician Opal Vigil Work Phone: [facility] Tele Comment on above: Muscle spasm (Primar y Dx); Diabetes mellitus without complication (HCC) Start: 06-14-2018 Patient encounter Meliton Brandt [facility] Start: 06-11-2018 End: 06-12-2018 Patient encounter JUAN MIGUEL ANN Facility:[id number] Start: 04-29-2018 Patient encounter Ambrosio Monroy [facility] Start: 08-05-2017 End: 08-06-2017 Ambulatory OPAL VIGIL Facility:[facility] Start: 08-03-2017 Ambulatory OPAL VIGIL Facility[facility] Start: 05-27-2017 End: 05-28-2017 Ambulatory ELLIOT TORREZ Facility:[facility] Procedures Date Procedure Procedure Detail Performing [...] Basic metabolic panel calcium total Mary Alice Aguilera PRESS BREAKER - AMPOULE FILLER AND SEALER Work Phone: Start: 04-26-2025 Glucose quantitative blood [...] 04-25-2025 Basic metabolic panel calcium total Kerwin Mason DO Work Phone: Start: 04-24-2025 Glucose quantitative blood xcpt reagent strip Kerwin Mason DO Work Phone: Start: 04-24-2025 Glucose quantitative blood xcpt reagent strip Kerwin Mason DO Work Phone: Start: 04-24-2025 Glucose quantitative blood xcpt reagent strip Kerwin Mason DO Work Phone: Start: 04-24-2025 End: 04-24-2025 Glucose quantitative blood xcpt reagent strip Kerwin Mason DO Work Phone: Start: 04-24-2025 Decalcification procedure Kaela sevilla MD Work Phone: Start: 04-24-2025 End: 04-24-2025 Culture bacterial any source anaerobic iso&id Kaela Durand MD Work Phone: Start: 04-24-2025 End: 04-24-2025 Debridement muscle & fascia 20 sq cm/< Kaela Durand MD Work Phone: Start: 04-24-2025 Basic metabolic panel calcium total Kerwin Radhames DO Work Phone: Start: 04-24-2025 Drug screen quantitative vancomycin Alberto Boogie NP Work Phone: Start: 04-23-2025 Glucose quantitative blood xcpt reagent strip Kerwin Radhames DO Work Phone: Start: 04-23-2025 Glucose quantitative blood xcpt reagent strip Kerwin Radhames DO Work Phone: Start: 04-23-2025 Glucose quantitative blood xcpt reagent strip Kerwin Radhames DO Work Phone: Start: 04-23-2025 Glucose quantitative blood xcpt reagent strip Kerwin Mason DO Work Phone: Start: 04-23-2025 Basic metabolic panel calcium total Kerwin Mason DO Work Phone: Start: 04-22-2025 Glucose quantitative blood xcpt reagent strip Kerwin Mason DO Work Phone: Start: 04-22-2025 Glucose quantitative blood xcpt reagent strip Kerwin Mason DO Work Phone: Start: 04-22-2025 Glucose quantitative blood xcpt reagent strip Kerwin Radhames DO Work Phone: Start: 04-22-2025 Glucose quantitative blood xcpt reagent strip Kerwin Radhames DO Work Phone: Start: 04-22-2025 Drug screen quantitative vancomycin Alberto Boogie SYSTEM SAFETY ENGINEER Work Phone: Start: 04-22-2025 Ct pelvis w/contrast [...] Insj temp ndwellg bladder catheter simple Faisal Simeon DO Work Phone: Start: 07-10-2024 End: 07-10-2024 [...] Work Phone: Start: 05-22-2024 Comprehensive metabolic panel Brad Mahajan MD Work Phone: Start: 05-21-2024 Glucose quantitative blood xcpt reagent strip Parvin Mahajan MD Work Phone: Start: 05-21-2024 Glucose quantitative blood xcpt reagent strip Parvin Mahajan MD Work Phone: Start: 05-21-2024 Glucose quantitative blood xcpt reagent strip Parvin Mahajan MD Work Phone: Start: 05-21-2024 Glucose quantitative blood xcpt reagent strip Parvin Mahajan MD Work Phone: Start: 05-21-2024 Comprehensive metabolic panel Brad Mahajan MD Work Phone: Start: 05-20-2024 Glucose quantitative blood xcpt reagent strip Parvin Mahajan MD Work Phone: Start: 05-20-2024 Glucose quantitative blood xcpt reagent strip Parvin Mahajan MD Work Phone: Start: 05-20-2024 Glucose quantitative blood xcpt reagent strip Parvin Mahajan MD Work Phone: Start: 05-20-2024 Glucose quantitative blood xcpt reagent strip Parvin Mahajan MD Work Phone: Start: 05-20-2024 Comprehensive metabolic panel Brad Mahajan MD Work Phone: Start: 05-19-2024 Glucose quantitative blood xcpt reagent strip Parvin Mahajan MD Work Phone: Start: 05-19-2024 Glucose quantitative blood xcpt reagent strip Parvin Mahajan MD Work Phone: Start: 05-19-2024 Glucose quantitative blood xcpt reagent strip Parvin Mahajan MD Work Phone: Start: 05-19-2024 Glucose quantitative blood xcpt reagent strip Parvin Mahajan MD Work Phone: Start: 05-19-2024 Comprehensive metabolic panel Brad Mahajan MD Work Phone: Start: 05-18-2024 Glucose [...] Culture bacterial quanttative colony count urine Terri Franco Blanco PA-C Work Phone: Start: 05-17-2024 Urinalysis complete panel - Urine Terri Simeon PA-C Work Phone: Start: 05-17-2024 End: 05-17-2024 Bacteria identified in Blood by Culture Terri Franco Blanco CORRIGAN-C Work Phone: Start: 05-17-2024 Basic metabolic panel calcium total Terri Franco Blanco PA-C Work Phone: Start: 05-11-2024 Radex entir thrc lmbr crv sac spi w/skull 2/3 vw Otis Mejia MD Work Phone: Start: 05-11-2024 Radex sacrum & coccyx minimum 2 views Berna CORRIGAN-C Work Phone: Start: 05-06-2024 Glucose quantitative blood [...] 04-18-2024 Manual differential performed [Presence] in Blood Pedro Luis Matos MD Work Phone: Start: 04-17-2024 Glucose [...] Manual Differential panel - Blood Brad Mujica PRESS BREAKER - AMPOULE FILLER AND SEALER Work Phone: Start: 04-15-2024 Glucose quantitative blood [...] Start: 04-15-2024 Manual Differential panel - Blood Brad Mujica PRESS BREAKER - AMPOULE FILLER AND SEALER Work Phone: Start: 04-15-2024 Drug screen quantitative vancomycin Orquidea Marti MD Work Phone: Start: 04-15-2024 Culture bacterial quanttative colony count urine Brad Mujica PRESS BREAKER - AMPOULE FILLER AND SEALER Work Phone: Start: 04-14-2024 End: 04-14-2024 Blood [...] group [Type] in Blood by Confirmatory method Ene Crawley MD Work Phone: Start: 04-14-2024 Blood typing serologic rh (d) Ene Crawley MD Work Phone: Start: 04-14-2024 End: 04-14-2024 Assay of lipase Ene Crawley MD Work Phone: Start: 04-14-2024 Ct abdomen & pelvis w/o contrast material Ene Crawley MD Work Phone: Start: 04-14-2024 Blood gases any combination ph [id number] [id number] co2 [id number] Ene Crawley MD Work Phone: Start: 04-14-2024 Radiologic exam chest single view Ene Crawley MD Work Phone: Start: 04-14-2024 Bacteria identified in Blood by Culture Ene Crawley MD Work Phone: Start: 04-14-2024 HC CUL TYP ID BLD PTHGN 6+ TRGT Ene Crawley MD Work Phone: Start: 04-14-2024 Ecg routine ecg w/least 12 lds trcg only w/o i&r Ene Crawley MD Work Phone: Start: 04-14-2024 Comprehensive metabolic panel Ene Crawley MD Work Phone: Start: 04-14-2024 Manual Differential panel - Blood Ene Crawley MD Work Phone: Start: 04-05-2024 Mri spinal [...] panel - Serum or Plasma Joe Hammer PRESS BREAKER - AMPOULE FILLER AND SEALER Work Phone: Start: 09-06-2021 Colonoscopy Faisal Simeon [...] vaccine (adult) (1 - 1-dose 75+ series) [facility] Start: 09-06-2031 [facility] Start: 01-23-2027 Lipid panel Cholesterol [facility] Start: 04-27-2026 Diabetes: Estimated Glomerular Filtration Rate for Kidney Health Diabetes: Estimated Glomerular Filtration Rate for Kidney Health [facility] Start: 04-21-2026 Hemoglobin A1c measurement Diabetes: Hemoglobin A1C [facility] Start: 02-16-2026 Screening for malignant neoplasm of lung Lung Cancer Screening [facility] Start: 06-05-2025 Influenza vaccination [facility] Start: 06-02-2025 End: 06-02-2025 Patient encounter procedure 06/02/2025 11:00 AM EDT Office Visit [facility] Infectious Disease - [place] [address] [place] [address] Savage Alvarez MD [address] [place], [place] [id number] [facility] Disease - [place] Start: 05-22-2025 Diabetes: Estimated Glomerular Filtration Rate for Kidney Health Diabetes: Estimated Glomerular Filtration Rate for Kidney Health [facility] Start: 05-06-2025 Diabetes: Estimated Glomerular Filtration Rate for Kidney Health Diabetes: Estimated Glomerular Filtration Rate for Kidney Health [facility] Start: 04-27-2025 Diabetes: Estimated Glomerular Filtration Rate for Kidney Health Diabetes: Estimated Glomerular Filtration Rate for Kidney Health [facility] Start: 04-20-2025 Diabetes: Estimated Glomerular Filtration Rate for [facility]ney Health Diabetes: Estimated Glomerular Filtration Rate for Kidney Health [facility] Start: 04-20-2025 [facility] Start: 04-15-2025 Diabetes: Estimated Glomerular Filtration Rate for [facility] Health Diabetes: Estimated Glomerular Filtration Rate for Kidney Health [facility] Start: 04-15-2025 Hemoglobin A1c measurement [facility] Start: 04-04-2025 Hemoglobin A1c measurement Hemoglobin A1C [facility] Start: 03-20-2025 End: 03-20-2025 Admission to same day surgery center 03/20/2025 10:00 AM EDT - 03/20/2025 11:30 AM EDT Surgery [place] SUR[place] [place] 1 [facility] [place] [address] Anmol Herbert MD [address] [place] [address] CYSTOSCOPY, RETROPYELOGRAM [place] [facility] [place] Comment on above: CYSTOSCOPY, RETROPYELOGRAM Start: 03-20-2025 End: 03-20-2025 Cysto bladder w/ureteral catheterization [place] OR Start: 03-20-2025 End: 03-20-2025 Cysto w/insert ureteral stent [place] OR Start: 03-20-2025 End: 03-20-2025 Cysto w/simple removal stone & stent [place] OR Start: 03-20-2025 Subsequent hospital visit by physician 03/20/2025 10:00 AM EDT Hospital Encounter [place] SURGERY OR 1 [place] [address] Anmol Herbert MD [address] [place] [address] Other hydronephrosis [N13.39] [place] [facility] [place] Comment on above: Other hydronephrosis [N13.39] Start: 03-14-2025 End: 03-14-2025 Patient encounter procedure 03/14/2025 1:50 PM EDT Office Visit Plastic Surgery [address] [place] [address] Milad Goodson MD [address] [address] [place] sacrum & left ischium Plastic Surgery Comment on above: [place] sacrum & left ischium Start: 01-31-2025 End: 05-02-2025 C reactive protein [Mass/volume] in Serum or Plasma C-REACTIVE PROTEIN Lab Routine Chronic osteomyelitis (HCC) Expected: 01/31/2025, Expires: 05/02/2025 [facility] Comment on above: Expected: 01/31/2025, Expires: Start: 01-31-2025 End: 05-02-2025 Erythrocyte sedimentation rate SEDIMENTATION RATE, WESTERGREN Lab Routine Chronic osteomyelitis (HCC) Expected: 01/31/2025, Expires: 05/02/2025 [facility] Work Phone: Comment on above: Expected: 01/31/2025, Expires: Start: 01-31-2025 End: 05-02-2025 Prealbumin [Mass/volume] in Serum or Plasma PREALBUMIN Lab Routine Chronic osteomyelitis (HCC) Expected: 01/31/2025, Expires: 05/02/2025 [facility] Comment on above: Expected: 01/31/2025, Expires: Start: 11-08-2024 End: 11-08-2024 Telemedicine consultation with patient 11/08/2024 1:30 PM EST Telemedicine [facility] [place] [facility] [address] [place], [place] [phone] Faisal Simeon DO [address] [place], [place] [phone] [facility] Start: 11-05-2024 Welcome to Medicare Visit (G0402) Welcome to Medicare Visit (G0402) [facility] Start: 10-16-2024 Hemoglobin A1c measurement HbA1C [facility] Start: 10-11-2024 End: 10-11-2025 MR Pelvis WO and W contrast IV MR pelvis w and wo contrast Imaging Routine Pressure ulcer of sacral region, unspecified stage Expected: 10/11/2024, Expires: 10/11/2025 [employer] Work Phone: Comment on above: Expected: 10/11/2024, Expires: Start: 10-05-2024 Medicare Advantage Annual Wellness Visit Medicare Advantage Annual Wellness [facility] Start: 09-30-2024 End: 09-30-2025 CT Abdomen and Pelvis WO contrast CT RENAL STONE Imaging Routine Gross hematuria Expected: 09/30/2024, Expires: 09/30/2025 [facility] [employer] Work Phone: Comment on above: Expected: 09/30/2024, Expires: Start: 09-30-2024 End: 09-30-2024 Patient encounter procedure 09/30/2024 1:00 PM EST Procedure Visit [facility] [address] [place], [place] [phone] Faisal Simeon DO [address] [place] [address] [facility] Start: 09-09-2024 End: 09-09-2024 Patient encounter procedure 09/09/2024 2:00 PM EST Procedure Visit [facility] [address] [place] [address] Faisal Simeon DO [address] [place] [address] [facility] Start: 08-22-2024 End: 08-22-2024 Telemedicine consultation with patient 08/22/2024 8:20 AM EST Telemedicine [facility] Rheumatology [address] [facility] [address] [place] [address] Giuliano Shultz DO [address] [place] [address] [facility] Rheumatology Start: 2024 End: 2024 Patient encounter procedure 2024 1:30 PM EDT Office Visit [facility] Pain [address] [phone] Carlos Gillette MD [address] [place] [address] [facility] Pain [facility] Start: 08-01-2024 End: 08-01-2024 Telemedicine consultation with patient 08/01/2024 9:00 AM EDT Telemedicine [facility] [address] [place] [address] [facility] Start: 07-10-2024 End: 07-10-2024 Patient encounter procedure [facility] Radiology Start: 07-05-2024 Influenza vaccination Influenza Vaccine (#1) [facility] Start: 07-01-2024 End: 07-01-2024 Professional / ancillary services management 07/01/2024 11:00 AM EDT Ancillary Procedure [facility] Nickolas Verman [facility] [address] [place] [address] [facility] Start: 06-14-2024 End: 06-14-2024 Patient encounter procedure 06/14/2024 8:30 AM EDT Office Visit [facility] [address] [facility] [place] [address] Carlos Gillette MD [address] [place] [address] [facility] Start: 06-13-2024 End: 06-13-2024 Patient encounter procedure 06/13/2024 11:00 AM EDT [facility] [place] [facility] [address] [place] [address] [facility] Start: 06-13-2024 End: 06-13-2024 Professional / ancillary services management 06/13/2024 9:00 AM EDT Ancillary Procedure [facility] Nickolas Castillo [facility] [address] [place] [address] [facility] Start: 06-05-2024 COVID-19 Vaccine ( season) COVID-19 Vaccine ( season) [facility] Start: 06-05-2024 COVID-19 Vaccine ( season) COVID-19 Vaccine ( season[facility] Start: 06-05-2024 Influenza vaccination [facility] Start: 06-05-2024 [facility] Start: 05-11-2024 End: 05-11-2025 DXA Skeletal system Views for bone density BD BONE DENSITY SURVEY Imaging Routine Sacral insufficiency fracture, initial encounter Expected: 05/11/2024, Expires: 05/11/2025 [facility] [employer] Work Phone: Comment on above: Expected: 05/11/2024, Expires: Start: 05-11-2024 End: 05-11-2025 MR Cervical spine WO contrast MR C-SPINE W/O Imaging Routine Sacral insufficiency fracture, initial encounter Expected: 05/11/2024, Expires: 05/11/2025 [facility] Comment on above: Expected: 05/11/2024, Expires: Start: 05-11-2024 End: 05-11-2025 MR Thoracic spine WO contrast MR T-SPINE W/O Imaging Routine Sacral insufficiency fracture, initial encounter Expected: 05/11/2024, Expires: 05/11/2025 [facility] Comment on above: Expected: 05/11/2024, Expires: Start: 05-11-2024 End: 05-11-2024 Patient encounter procedure [facility] Comment on above: Sacral insufficiency fracture, initial e ncounter (Primary Dx) Start: 05-06-2024 End: 04-20-2025 Bacteria identified in Blood by Culture [facility] Work Phone: Start: 05-05-2024 End: 05-05-2024 Admission to same day surgery center 05/05/2024 12:30 PM EDT - 05/05/2024 2:30 PM EDT Surgery [facility] MAIN OR [address] [place] [address] Joan Patel MD [address] [facility] [address] [place] [address] CYSTOSCOPY [32167 (CPT )] [facility] OR Comment on above: CYSTOSCOPY [61720 (CPT )] Start: 05-05-2024 End: 05-05-2024 ambulatory [facility] MA[facility] OR Start: 05-05-2024 End: 05-05-2024 Anesthesia consultation 05/05/2024 12:30 PM EDT Anesthesia Event [facility] MA[facility] OR [address] [place] [address] Waleska Stein, [employer] - [employer] [address] [place] [address] [facility] OR Start: 05-05-2024 End: 05-05-2024 Cysto w/insert ureteral stent [facility] Operating Room Start: 05-05-2024 End: 05-05-2024 Cysto w/ureteroscopy w/lithotripsy [facility] Operating Room Start: 05-05-2024 End: 05-05-2024 Cystourethroscopy [facility] Operating Room Start: 05-05-2024 End: 05-05-2024 Litholapaxy comp/lg > 2.5 cm [facility] Operating Room Start: 05-05-2024 Subsequent hospital visit by physician 05/05/2024 12:30 PM EDT Hospital Encounter [facility] OR [address] [facility] [place] [phone] Joan Patel MD [address] [facility] [address] [place] [address] [facility] MAIN OR Start: 04-27-2024 End: 04-27-2024 Admission to establishment 04/27/2024 2:00 PM EDT Pre-Admission Testing [facility] Pre-Admit Testing [address] [facility] [place] [phone] Joan Patel MD [address] [facility] [address] [place] [address] [facility] Pre-Admit Testing Start: 04-27-2024 End: 04-27-2024 ambulatory [facility] Pre-Admit Testin g Start: 04-21-2024 End: 04-21-2024 Patient encounter procedure 04/21/2024 8:45 AM EDT Office Visit [facility] [address] [place] [phone] Carlos Gillette MD [address] [place] [address] [facility] Start: 04-05-2024 End: 04-05-2024 Patient encounter procedure 04/05/2024 2:30 PM EDT Appointment [facility] Radiology [address] [place] [address] [facility] Start: 04-04-2024 Welcome to Medicare Visit (G0402) Welcome to Medicare Visit (G0402) [facility] Start: 03-30-2024 End: 03-30-2024 Patient encounter procedure 03/30/2024 4:00 PM EDT Office Visit [facility] [address] [place] [phone] Carlos Gillette MD [address] [place], [place] [phone] [facility] Start: 02-10-2024 End: 02-09-2025 MR Lumbar spine WO and W contrast IV MR L-SPINE W/+W/O Imaging Routine Paraplegia (HCC) History of lumbar fusion Expected: 02/10/2024, Expires: 02/09/2025 [facility] Work Phone: Comment on above: Expected: 02/10/2024, Expires: Start: 12-29-2023 End: 12-29-2023 Patient encounter procedure 12/29/2023 2:45 PM EDT Office Visit [facility] [address] [place] [phone] Carlos Gillette MD [address] [place], [place] [phone] [facility] Start: 06-05-2023 COVID-19 Vaccine ( season) COVID-19 Vaccine ( season) [facility] Start: 06-05-2023 Influenza vaccination Influenza Vaccine (#1) [facility] Start: 06-05-2023 [facility] Start: 01-23-2023 Hemoglobin A1c measurement Diabetes: Hemoglobin A1C [facility] Start: 01-23-2023 Hepatitis B surface antibody level LDL CHOLESTEROL [facility] Start: 01-23-2023 Lipid panel Lipid Panel [facility] Start: 12-27-2022 Diabetes: Urine Albumin-Creatinine Ratio for [facility] Diabetes: Urine Albumin-Creatinine Ratio for [facility] Start: 07-25-2022 Hemoglobin A1c/Hemoglobin.total in Blood HBA1C [facility] Start: 06-05-2022 Influenza vaccination [facility] Start: 10-25-2021 HbA1c (Bld) [Mass fraction] A1C test (Diabetic or Prediabetic) [place] Start: 10-25-2021 Hemoglobin A1c measurement Diabetes: Hemoglobin A1C [facility] Start: 2021 Hepatitis B (HBV) Vaccine (optional start 60+ years) Hepatitis B (HBV) Vaccine (optional start 60+ years) [facility] Start: 2021 Hepatitis B Vaccines (1 of 3 - Risk 3-dose series) Hepatitis B Vaccines (1 of 3 - Risk 3-dose series) [facility] Start: 2021 RSV Immunization aged 60 or older (1 - 1-dose 60+ series) RSV Immunization aged 60 or older (1 - 1-dose 60+ series) [facility] Start: 2021 RSV Immunization for Adults (1 - Risk 60-74 years 1-dose series) RSV Immunization for Adults (1 - Risk 60-74 years 1-dose series) [facility] Start: 2021 RSV Vaccine (1 - Risk 60-74 years 1-dose series) RSV Vaccine (1 - Risk 60-74 years 1-dose series) [facility] Start: 2021 RSV vaccine (optional 60+ years) RSV vaccine (optional 60+ years) [facility] Start: 2021 [facility] Start: 11-20-2020 End: 11-20-2020 Office Visit 11/20/2020 Office Visit Neurosurgery Opal Vigil MD [address] [address] [facility] Start: 11-06-2020 End: 11-06-2020 Office Visit [facility] Start: 06-05-2020 Influenza vaccination Flu vaccine (#1) [place] Start: 01-05-2018 Lipid panel Lipid screen [place] Start: 2016 PROSTATE CANCER SCREENING DISCUSSION PROSTATE CANCER SCREENING DISCUSSION [facility] Start: 2016 Prostate specific antigen measurement Prostate Cancer Screening Discussion [facility] Start: 2011 Pneumococcal vaccination Pneumococcal Vaccine(s) (50+ yrs) (1 of 1 - PCV) [facility] Start: 2011 Screening for malignant neoplasm of colon Colon cancer screen colonoscopy [place], [place] Start: 2011 Screening for malignant neoplasm of lung Lung Cancer Screening [facility] Start: 2011 Shingles (RZV) Vaccine (1 of 2) Shingles (RZV) Vaccine (1 of 2) [facility] Start: 2011 Shingles Vaccine (1 of 2) Shingles Vaccine (1 of 2) [place] Start: 2011 SHINGRIX VACCINE (1 of 2) SHINGRIX VACCINE (1 of 2) [facility] Start: 2011 Zoster Vaccines (1 of 2) Zoster Vaccines (1 of 2) [facility] Start: 2011 [facility] Start: 2006 COLOGUARD (FIT-DNA) COLOGUARD (FIT-DNA) [facility] Start: 2006 Colonoscopy COLONOSCOPY [facility] Start: 2006 COLORECTAL CANCER SCREENING COLORECTAL CANCER SCREENING [facility] Start: [address] COLONOGRAPHY [facility] Start: 2006 FECAL OCCULT BLOOD FECAL OCCULT BLOOD [facility] Start: 2006 Prostate specific antigen measurement Prostate Cancer Screening Discussion [facility] Start: 2006 Screening for malignant neoplasm of colon [facility] Start: 2006 SIGMOIDOSCOPY SIGMOIDOSCOPY [facility] Start: 1996 Lipid panel Cholesterol [facility] Start: 1980 DTaP/Tdap/Td vaccine (1 - Tdap) DTaP/Tdap/Td vaccine (1 - Tdap) [place] Start: 1980 DTaP/Tdap/Td Vaccines (1 - Tdap) DTaP/Tdap/Td Vaccines (1 - Tdap) [facility] Start: 1980 Hepatitis A (HAV) Vaccine (optional start 19+ years) Hepatitis A (HAV) Vaccine (optional start 19+ years) [facility] Start: 1980 Hepatitis B vaccine (1 of 3 - Risk 3-dose series) Hepatitis B vaccine (1 of 3 - Risk 3-dose series) [place] Start: 1980 Pneumococcal Vaccine: 50+ (1 of 2 - PCV) Pneumococcal Vaccine: 50+ (1 of 2 - PCV) [facility] Start: 1980 Pneumococcal Vaccine: 50+ Years (1 of 2 - PCV) Pneumococcal Vaccine: 50+ Years (1 of 2 - PCV) [facility] Start: 1980 Urine microalbumin profile [facility] Start: 1980 [facility] Start: 1979 ANNUAL PCP TEAM CHRONIC DISEASE VISIT ANNUAL PCP TEAM CHRONIC DISEASE VISIT [facility] Start: 1979 Anxiety Screening Anxiety Screening [facility] Start: 1979 Depression Screening Depression Screening [facility] Start: 1979 Diabetes: Urine Albumin-Creatinine Ratio for Kidney Health Diabetes: Urine Albumin-Creatinine Ratio for Kid[facility] Health [facility] Start: 1979 Diabetic microalbuminuria test Diabetic microalbuminuria test [place] Start: 1979 Hepatitis C screening [facility] Start: 1979 Tetanus + diphtheria + acellular pertussis vaccine (product) Tdap Booster [facility] Start: 1979 [facility] Start: 1977 ONE PNEUMOVAX PRIOR TO AGE 65 ONE PNEUMOVAX PRIOR TO AGE 65 [facility] Start: 1976 HIV screening [facility] Start: 1973 Adult depression screening assessment DEPRESSION SCREENING [facility] Start: 1973 Depression Monitoring Depression Monitoring [facility] Start: 1973 [facility] Start: 1971 3 comp foot exam completed DIABETIC FOOT EXAM [facility] Start: 1971 Diabetic foot examination [facility] Start: 1971 Diabetic retinal exam Diabetic retinal exam [place], [place] Start: 1971 Glaucoma screening [facility] Start: 1971 Hepatitis B screening URINE ALBUMIN:CREATININE RATIO [facility] Start: 1971 Hepatitis C antibody, confirmatory test DILATED RETINAL EXAM [facility] Start: 1971 Preventive dental service [facility] Start: 1967 PNEUMOCOCCAL (1 - PCV) PNEUMOCOCCAL (1 - PCV) [facility] Start: 1967 Pneumococcal 0-64 years Vaccine (1 of 1 - PPSV23) Pneumococcal 0-64 years Vaccine (1 of 1 - PPSV23) [place] Start: 1967 Pneumococcal Vaccine: Pediatrics (0 to 5 Years) and At-Risk Patients (6 to 64 Years) (1 - PCV) Pneumococcal Vaccine: Pediatrics (0 to 5 Years) and At-Risk Patients (6 to 64 Years) (1 - PCV) [facility] Start: 1967 Pneumococcal Vaccine: Pediatrics (0 to 5 Years) and At-Risk Patients (6 to 64 Years) (1 of 2 - PCV) Pneumococcal Vaccine: Pediatrics (0 to 5 Years) and At-Risk Patients (6 to 64 Years) (1 of 2 - PCV) [facility] Start: 1967 [facility] Start: 1966 COVID-19 VACCINE (#1) COVID-19 VACCINE (#1) [facility] Start: 1962 MMR Vaccines (1 of 1 - Standard series) MMR Vaccines (1 of 1 - Standard series) [facility] Start: 1962 [facility] Start: 02-01-1962 COVID-19 VACCINE (#1) COVID-19 VACCINE (#1) [facility] Start: 1961 Hepatitis C screening Hepatitis C screen [place], [place] Start: 1961 HIV screening [facility] Start: 1961 Lipid panel [facility] Start: 1961 Medicare Annual Wellness (AWV) Medicare Annual Wellness (AWV) [facility] Start: 1961 Screening for malignant neoplasm of colon [facility] Start: 1961 [facility] End: 08-22-2025 25 hydroxy includes fractions if performed VITAMIN D, 25-HYDROXY Lab Routine Osteoporosis, unspecified osteoporosis type, unspecified pathological fracture presence 1 Occurrences starting 08/22/2024 until 08/22/2025 [facility] Comment on above: 1 Occurrences starting 08/22/2024 until 08/22/2025 Aerobic and Anaerobi c Culture with Stain [facility] Work Phone: Comment on above: Release Upon Ordering for 1 Occurrences starting 05/05/2024 Aerobic and Anaerobi c Culture with Stain [facility] Work Phone: Comment on above: Release Upon Ordering for 1 Occurrences starting 04/24/2025 End: 08-22-2025 Assay of parathormone PARATHYROID HORMONE INTACT Lab Routine Osteoporosis, unspecified osteoporosis type, unspecified pathological fracture presence 1 Occurrences starting 08/22/2024 until 08/22/2025 [facility] Comment on above: 1 Occurrences starting 08/22/2024 until 08/22/2025 Bacteria identified in Blood by Culture [facility] Work Phone: End: 04-14-2024 Bacteria identified in Lower respiratory specimen by Aerobe culture [facility] Bacteria identified in Unspecified specimen by Aerobe culture Culture, Aerobic Bacteria with Gram Stain Microbiology Routine Calculus of ureter 05/05/2024 4:14 PM EDT [facility] End: 05-05-2024 Bacteria identified in Unspecified specimen by Anaerobe culture [facility] Comment on above: Once for 1 Occurrences starting 05/05/20 24 until 05/05/2024 Bacteria identified in Unspecified specimen by Anaerobe culture [facility] End: 05-23-2023 Bacteria identified in Urine by Culture [facility] Work Phone: Comment on above: Once (Lab) for 1 Occurrences starting until 05/23/2023 Basic metabolic 2000 panel Basic Metabolic Panel Lab Routine Daily until discontinued starting 10/25/2020, 1 completed [employer] Comment on above: Daily until discontinued starting 2020, 1 completed End: 08-22-2025 Basic metabolic 2000 panel - Serum or Plasma BASIC METABOLIC PANEL Lab Routine Osteoporosis, unspecified osteoporosis type, unspecified pathological fracture presence 1 Occurrences starting 08/22/2024 until 08/22/2025 [facility] [employer] [facility] Work Phone: Comment on above: 1 Occurrences starting 08/22/2024 until 08/22/2025 Calculi Analysis(Stone) [facility] Comment on above: Release Upon Ordering for 1 Occurrences starting 05/05/2024 CBC Auto Differential CBC Auto D ifferential Lab Routine Daily until discontinued starting 10/25/2020, 1 completed [employer] Comment on above: Daily until discontinued starting 2020, 1 completed End: 04-14-2024 Fungus identified in Unspecified specimen by Culture [employer] Work Phone: Fungus identified in Unspecified specimen by Culture Fungal Culture Microbiology Routine Calculus of ureter 05/05/2024 4:14 PM EDT [facility] End: 04-14-2024 Lactic acid with reflex [facility] Work Phone: Oxygen therapy [Mini [facility] Data Set] Initiate Oxygen Therapy Protocol Respiratory Care Routine Daily until discontinued starting 10/24/2020 [facility] Comment on above: Daily until discontinued starting 2020 POCT glucose [employer] Comment on above: 4X Daily (AC & HS) until discontinued st arting 10/25/2020 As Needed until disc ontinued starting 10/24/2020 End: 08-22-2025 Protein electrophoretic fractj&quantj serum ELECTROPHORESIS, SERUM PROTEIN Lab Routine Osteoporosis, unspecified osteoporosis type, unspecified pathological fracture presence 1 Occurrences starting 08/22/2024 until 08/22/2025 [facility] Comment on above: 1 Occurrences starting 08/22/2024 until 08/22/2025 Spirometry panel Incentive negin metry RT Respiratory Care Routine Every 2hr while awake until discontinued starting 10/24/2020 [employer] [facility] Comment on above: Every 2hr while awake until discontinued starting 10/24/2020 End: 04-14-2024 Urinalysis complete panel - Urine [employer] Work Phone: Immunizations Immunization Date Immunization Notes Care Provider Nessa peñaloza 04-15-2024 Hemoglobin A1C [facility] 04-04-2024 Hemoglobin A1C M[facility] 1 [facility] Payers Date Payer Category Payer Medicare (Managed Care) 1.2. [id number] 2024 Medicare O [employer] MEDIC[employer] [id number] 2024 Medicare [id number] 2024 Self-pay [id number] 2024 Medicare [id number] 2024 Medicare FFS MEDICARE [id number] 2024 Unknown [id number] 2024 Unknown [id number] 2022 Medicaid [id number] 2021 Medicaid [facility] MEDICAID [facility] MEDICAID [id number] 2021-Present [phone] [address] [place] [address] Medicaid [id number] 2016 Unknown [id number] 2008 Unknown 1961 Unknown [id number] 1961 Unknown [id number] 1961 Unknown [id number] 1961 Unknown [id number] [id number] 1961 Unknown [id number] [id number] 1961 Unknown [id number] 2.840.1.486140.3.579.2. 732 1960 Unknown [id number] 2.840.1.775308.3.579.2. 732 1960 Unknown [id number] 2.840.1.877566.3.579.2. 732 1960 Unknown [id number] 2.840.1.348333.3.579.2. 732 1960 Unknown [id number] 2.840.1.633929.3.579.2. 732 1960 Unknown [id number] 2.840.1.072806.3.579.2. 732 1960 Unknown [id number] 2.840.1.926599.3.579.2. 732 1960 Unknown [id number] 2.840.1.579029.3.579.2. 732 1960 Unknown [id number] 2.840.1.857123.3.579.2. 732 Unknown [id number] 2.840.1.526835.3.579.2. 462 Unknown [id number] 2.840.1.539779.3.579.2. 462 Unknown [id number] 2.840.1.014294.3.579.2. 462 Unknown [id number] 2.16.840.1.897514.3.579.2. 462 Unknown [id number] 2.16.840.1.110487.3.579.2. 462 Unknown [id number] 2.16.840.1.200523.3.579.2. 462 Unknown [id number] 2.16.840.1.705411.3.579.2. 462 Unknown [id number] 2.16.840.1.613618.3.579.2. 462 Unknown [id number] 2.16.840.1.500096.3.579.2. 462 Unknown [id number] 2.16.840.1.181905.3.579.2. 462 Unknown [id number] 2.16.840.1.090557.3.579.2. 462 Unknown [id number] 2.16840.1.755092.3.579.2. 462 Unknown [id number] 2.16.840.1.289848.3.579.2. 462 Unknown [id number] 2.16.840.1.000722.3.579.2. 462 Unknown [id number] 2.16.840.1.212762.3.579.2. 462 Unknown [id number] 2.16.840.1.204952.3.579.2. 462 Unknown [id number] 2.16840.1.247077.3.579.2. 462 Unknown [id number] 2.16.840.1.445722.3.579.2. 462 Unknown [id number] 2.16840.1.718591.3.579.2. 462 Social History Date Type Detail Facility Start: 10-05-1977 End: 04-27-2024 Tobacco smoking status NHIS Current every day smoker [facility] Start: 10-24-2020 End: 04-27-2024 Tobacco use and exposure Never used [place] Start: 10-24-2020 End: 04-24-2025 Alcohol intake Current non-drinker of alcohol (finding) [place] Start: 10-15-2020 History SDOH Food Worry 1 [place] Start: 10-15-2020 History SDOH Transport Med 2 [place] Start: 12-21-2016 Alcohol Comment occ [place] Start: 1960 Sex Assigned At Not on file [place] Start: 05-13-2023 End: 05-23-2023 Exposure to SARS-CoV-2 (event) Not sure [place] Start: 08-09-2013 End: 04-22-2025 Current every day smoker Current every day smoker [facility] Start: 10-05-1977 History of tobacco use Cigarette Smoker [facility] Start: 1960 Sex Assigned At Male [facility] Start: 01-27-2022 End: 02-06-2022 Exposure to SARS-CoV-2 (event) Unable to assess [facility] Start: 12-29-2023 End: 04-22-2025 Gender identity Not on file [facility] Tobacco smoking stat [facility] Tobacco smoking consumption unknown [facility] [employer], or water [employer] threatened to shut off services in your [...] got money to buy more. Never true [facility] Start: 05-05-2022 End: 11-27-2023 Sex Male (finding) [facility] Work Phone: Start: 11-29-2021 Gender identity Identifies as male gender (finding) [facility] Start: 10-23-2023 Sexual orientation Heterosexual (finding) [facility] Medical Equipment Procedure Code Equipment Code Equipment Origin al Text Equipment Identifier Dates Graft Infuse 20g a Medium Bovine Collagen Rhbmp-2 2x1in Bone Vial Absorbable - [id number] Start: 01-14-2022 Substitute Mastergraft Calcium Phosphate Collagen Bone Graft Putty Void - [id number] Start: 12-12-2021 Substitute Mastergraft 10cm Bone Graft Strip 12ml Spine - [id number] Start: 01-14-2022 Substitute Mastergraft 10cm Bone Graft Strip 12ml Spine - [id number] Start: 01-14-2022 Creo Thread 6.5 X [...] 6-1 2mm X 10mm X 26mm 8deg [id number] Start: 12-12-2021 [id number] Start: 04-14-2024 [id number] Start: 04-14-2024 Stent Uret 6fr 2 2cm Wo Gw - [id number] Start: 05-05-2024 Stent Uret 6fr 2 2cm Wo - [id number] Start: 05-05-2024 Functional Status Date Assessment Result Facility 04-21-2025 Total score [AUDIT-C] 0 04/21/20 25 10:31 PM Giovana Mcwilliams RN [facility] 02-22-2025 Are you deaf, or do you have serious difficulty hearing No 02/22/2025 8:55 PM Nahun Hollingsworth RN No [facility] 02-22-2025 Are you blind, or do you have serious difficulty seeing, even when wearing glasses No 02/22/2025 8:55 PM Nahun Hollingsworth RN No [facility] 02-22-2025 Do you have serious difficulty walking or climbing stairs Yes 02/22/2025 8:55 PM EDNahun Singh RN Yes [facility] 02-22-2025 Do you have difficul ty dressing or bathing Yes 02/22/2025 8:55 PM EDT Nahun Gunderson RN Yes [facility] 02-22-2025 Because of a physica l, mental, or emotional condition, do you have difficulty doing errands alone such as visiting a physician's office or shopping Yes 02/22/2025 8:55 PM EDT Nahun Gunderson RN Yes [facility] 01-24-2022 Are you deaf, or do you have serious difficulty hearing No 01/24/2022 5:46 PM EDT Tiffanie Womack RN No [facility] 01-24-2022 Are you blind, or do you have serious difficulty seeing, even when wearing glasses No 01/24/2022 5:46 PM Tiffanie Boston RN No [facility] 01-24-2022 Do you have serious difficulty walking or climbing stairs Yes 01/24/2022 5:46 PM EDTiffanie Butler RN Yes [facility] 01-24-2022 Do you have difficul ty dressing or bathing Yes 01/24/2022 5:46 PM Tiffanie Boston RN Yes [facility] 01-24-2022 Because of a physica l, mental, or emotional condition, do you have difficulty doing errands alone such as visiting a physician's office or shopping No 01/24/2022 5:46 PM Tiffanie Boston RN No [facility] Mental Status Date Assessment Result Facility 02-22-2025 Because of a physica l, mental, or emotional condition, do you have serious difficulty concentrating, remembering, or making decisions No 02/22/2025 8:55 PM Nahun Hollingsworth RN No [facility] 01-24-2022 Because of a physica l, mental, or emotional condition, do you have serious difficulty concentrating, remembering, or making decisions No 01/24/2022 5:46 PM Tiffanie Boston RN No [facility] Clinical Notes 01-16-2021 to 04-28-2025 Joann King RN - 04/28/2025 3:38 PM EDTJoann King RN - 04/28/2025 3:38 PM EDSarwat Foster RN - 04/27/2025 2:46 PM EDTBerhane Moreno MD - 04/28/2025 2:45 PM EDTAttachments Note Date & Type Note Facility 04-28-2025 Nurse Note [facility] PICC line clean dry and intact. Aide got pt ready and gathered all belongings. Waiting on transport to arrive. [facility] 04-28-2025 Nurse Note Called report to the [facility]. PICC line clean dry and intact. Aide got pt ready and gathered all belongings. Waiting on transport to arrive. Patient dressings changed as per orders. Patient tolerated well. Left PICC dressing changed patient tolerated well documented in this encounter [facility] 04-28-2025 Note Discharge Summary Anmol Reynolds : [...] feeding: High Dos (more content not included)... [facility] 04-28-2025 Hospital course Narrative Images from the [...] Complexity: follow up within 7-14 calendar days (69465) [] Severe Complexity: follow up within 7 calendar days (57576) FOLLOW UP TESTING, PENDING RESULTS OR REFERRALS AT TRANSITIONAL CARE VISIT: [] Yes [] No PENDING STUDIES: DISPOSITION: Skilled Facility FACILITY/HOME CARE AGENCY NAME: Follow up with Tab Dupont PCP - General Internal Medicine [phone] [facility] [place] [id number] [facility] [address] Next Steps: Schedule an appointment as soon as possible for a visit in 1 week(s) [facility] [phone] [place] [address] Next Steps: Schedule an appointment as soon as possible for a visit Kaela uDrand MD Surgical Critical Care General Surgery Trauma Surgery [phone] [place] [address] Next Steps: Schedule an appointment as soon as possible for a visit in 2 week(s) Savage Alvarez MD Infectious Diseases [phone] [place] [address] [address] [facility] [address] Next Steps: Schedule an appointment as soon [...] 04/28/2025, 2:45 PM documented in this encounter [facility] 04-28-2025 Plan of care note Proteus is sensitive to unasyn. OPAT for unasyn and vancomycin completed and scanned into media with stop date of 06/06. Follow up with Dr. Alvarez. D/w [facility]. Plans for discharge to SNF. Jo-Ann Ortiz MD [facility] Work Phone: 04-28-2025 Miscellaneous Notes Proteus is sensitive to unasyn. OPAT for unasyn and vancomycin completed and scanned into media with stop date of 06/06. Follow up with Dr. Alvarez. D/w [facility]. Plans for discharge to SNF. Jo-Ann Ortiz MD Confirmed pickup time of 5:30pm on 04/28/25 by Lectorati at phone number [phone]. Location of facility drop off is [facility]. [facility] notified on secure chat. Transport requested in Roundtrip in will call to [facility] per T[facility]. Care Management Progress Note Short Medical why still here: continues to be treated for osteomyelitis. ID following- awaiting sensitivities for final IV plan. Currently receiving IV unasyn and vanc. PICC Line intact for antic 6wk course. Planned Discharge Disposition: plan for return to [facility]- will NOT need auth. BEHAVIORAL CONSULTANT to place pt in roundtrip under will [...] Planned Discharge Disposition: Plan for return to [facility]- does not need auth. Barriers/Today we still Wait: ID plan/opat. Length of Stay (Days): 5 GMLOS: 8.4 Care Management Progress Note Short Medical why still here: Pt continues to be treated for osteomyelitis. Receiving IV merrem q8hr with plan for 6wk tx per ID-final plan not complete. Planned Discharge Disposition: plan for return to [facility]- will need auth d/t skilled need for IV atb tx. Facility updated and asked to submit for auth. ADELINE complete. Barriers/Today we still Wait: Plan from ID/line placement and auth. Length of Stay (Days): 4 GMLOS: 8.4 Care Management Progress Note Short Medical why still here: Pt continues to be treated for osteomyelitis. ID following- receiving IV merrem and vanc- anticipate care home tx. Planned Discharge Disposition: Pt from [facility]- met with pt this afternoon- introduced self and role. Verified return when stable. Will need auth if pt has skilled needs (IV atb greater than once a day will qualify). Barriers/Today we still Wait: ID plan/line placement/opat. Length of Stay (Days): 3 GMLOS: 8.4 [facility] transportation. SW reviewed chart. Pt is a LTC resident of [facility]. [place] is responsible for pt transportation for medical appointments. . Return Referral placed to [facility] via Careport per [facility] request. Await review and response regarding ability to accept. TCC notified. Care Management Progress Note Short Medical why still here: Pt adm for tx/evaluation of osteomyelitis. OR this am with surgery for debridement of sacral and ischial wounds. Receiving IV merrem and vanc with ID following- anticipate terminologist needs. Planned Discharge Disposition: Pt from [facility] terminologist. Attempted to confirm return with pt however [...] achieved with bovie electrocautery. Two pieces of Knox patch were placed in the wound bed. [...] x 4 cm = 28 cm2 [CPT 90304, 48344] Open biopsy of left ischium [CPT 41697] This note is electronically signed by: Kaela [...] ago. States that he is at a half-way and they were concerned that his wounds [...] EMS pt was sent here from the [facility] for wound infections. Pt has two wound [...] Procedure Abnormality Status --------- ------ Culture, Aerobic Bacteri...[[id number]] Abnormal Preliminary result Anaerobic culture[[id number]] In process Please view results for these [...] DECOMPRESSION performed by Opal Vigil MD at [facility] OR ORTHOPEDIC SURGERY Right removal of hardware [...] Resource Strain: Low Risk (04/24/2023) Received from [facility] Overall Financial Resource Strain (CARDIA) Difficulty of Paying Living Expenses: Not hard at all Food Insecurity: No Food Insecurity (02/17/2025) Received from [facility] Hunger Vital Sign Worried About Running Out of Food in the Last Year: Never true Ran Out of Food in the Last Year: Never true Transportation Needs: No Transportation Needs (02/17/2025) Received from [facility] PRAPARE - Transportation Lack of Transportation (Medical): No Lack of Transportation (Non-Medical): No Intimate Partner Violence: Not At Risk (05/18/2024) Humiliation, Afraid, Rape, and Kick questionnaire Fear of Current or Ex-Partner: No Emotionally Abused: No Physically Abused: No Sexually Abused: No Housing Stability: Unknown (02/17/2025) Received from [facility] Housing Stability Vital Sign Unable to Pay for Housing in the Last Year: No Homeless in the Last Year: No Brad Campos MD 04/22/25 0201 documented in this encounter [facility] 04-28-2025 Progress note Formatting of t his note might be different from the original. Confirmed pickup time of 5:30pm on 04/28/25 by transport [employer] Carlos Obrien at phone number [phone]. Location of facility drop off is [facility]. Facility notified via Careport, TCC notified on secure chat. [facility] 04-28-2025 Hospital Discharge instructions Berhane Moreno MD [...] DECOMPRESSION performed by Opal Vigil MD at [facility] OR ORTHOPEDIC SURGERY Right removal of hardware [...] assistance Toileting Total assistance Feeding Minimal assistance Wire Charger Minimal assistance Med Delivery yes Wound Care [...] Date: 04/22/25 [facility] Johnnie Toribio, [place] [address] [place] Motion Picture Operator/Regulator Operator signature: ICIAN SECTION Name: Anmol Reynolds Prognosis: good Condition at Discharge: stable Rehab Potential (if transferring to Rehab): fair Recommended Labs or Other Treatments After Discharge: CBC, CMP panel weekly till IV antibiotic is completed Discontinue PICC line after IV antibiotic is completed The individual is being admitted to a nursing facility directly from an [facility] or a unit of a american academic health system that is not operated by or licensed by [facility] under section 5119.14 or 5160-3-15.1 5 The individual requires the level of services provided by a nursing facility for the condition for which he or she was treated in the hospital and, Physician Certification: I certify the above information and transfer of Anmol Reynolds is necessary for the continuing treatment of the diagnosis listed and that he requires longterm facility for greater than 30 days. Update Admission H&P: No change in H&P PHYSICIAN SIGNATURE: documented in this encounter [facility] 04-28-2025 Progress note Formatting of t his note might be different from the original. Transport requested in Roundtrip in will call to [facility] per TCC. [facility] 04-28-2025 Note Care Management Prog ress Note Short Medical why still here: continues to be treated for osteomyelitis. ID following- awaiting sensitivities for final IV plan. Currently receiving IV unasyn and vanc. PICC Line intact for antic 6wk course. Planned Discharge Disposition: plan for return to [facility]- will NOT need auth. BEHAVIORAL CONSULTANT to place pt in roundtrip under will call for transport assist. Barriers/Today we still Wait: need opat/final plan for discharge. Length of Stay (Days): 6 GMLOS: 8.4 [facility] 04-28-2025 Progress note Formatting of t his note might be different from the original. Care Management Progress Note Short Medical why still here: continues to be treated for osteomyelitis. ID following- awaiting sensitivities for final IV plan. Currently receiving IV unasyn and vanc. PICC Line intact for antic 6wk course. Planned Discharge Disposition: plan for return to [facility]- will NOT need auth. BEHAVIORAL CONSULTANT to place pt in roundtrip under will call for transport assist. Barriers/Today we still Wait: need opat/final plan for discharge. Length of Stay (Days): 6 GMLOS: 8.4 [facility] 04-28-2025 Note Hospitalist Progress Note 04/28/2025 10:05 AM [phone]: Please page me for patient care issues. [phone]: Please page [facility] Hospitalist for any issues. Subjective: Admit Date: 04/21/2025 PCP: Tab Dupont Room#: [id number]/[id number] A Interval History: Patient seen and examined [...] diet Regular; 4 carb choices (60 gm/meal) @[id number]@ Medications: Continuous Meds[2] Scheduled Meds[3] LABS: CBC: [...] daily Wound care team following. PT recommended longterm facility Continue IV Venofer as ordered for [...] Reynolds Mobile Relation (more content not included)... [facility] 04-28-2025 History of Present illness Narrative Hospitalist Progress Note 04/28/2025 10:05 AM [phone]: Please page me for patient care issues. [phone]: Please page [facility] night Hospitalist for any issues. Subjective: Admit Date: 04/21/2025 PCP: Tab Dupont Room#: [id number] A Interval History: Patient seen and examined [...] diet Regular; 4 carb choices (60 gm/meal) @[id number]@ Medications: Continuous Meds[2] Scheduled Meds[3] LABS: CBC: [...] daily Wound care team following. PT recommended longterm facility Continue IV Venofer as ordered for [...] Extended Emergency Contact Information Primary Emergency Contact: Ronadl Reynolds Mobile Relation: Sibling Secondary Emergency Contact: SUMI REYNOLDS Mobile Relation: Daughter Advance Directive: Full Code Discharge planning: Anticipated discharge in 1 day NOTE: This report was transcribed using voice recognition software. Every effort was made to ensure accuracy; however, inadvertent computerized distribution designer errors may be present. Berhane Moreno MD Division of Hospitalist Medicine [facility] PAGER: Epic chat [1] Past Medical History: [...] creatinine, and vancomycin levels interfaced automatically to [employer] and data has been analyzed and interpreted. [...] Chat Hospitalist Progress Note 04/27/2025 9:04 AM [phone]: Please page me for patient care issues. [phone]: Please page [facility] night Hospitalist for any issues. Subjective: Admit Date: 04/21/2025 PCP: Tab Dupont Room#: [id number] A Interval History: Patient seen and examined [...] diet Regular; 4 carb choices (60 gm/meal) @[id number]@ Medications: Continuous Meds[2] Scheduled Meds[3] LABS: CBC: Recent Labs 04/25/256 04/26/25 0039 04/27/25 0304 WBC 9.5 7.3 8.0 RBC 3.62* 3.76* 3.78* HGB 10.4* 11.0* 10.9* HCT 32.6* 33.8* 34.0* MCV 90.1 89.9 89.9 RDW 14.8 14.8 14.9 PLT 421 386 363 BMP: Recent Labs 04/25/25 0056 04/26/25 0039 04/27/25 0304 NA 134* 136 [...] daily Wound care team following. PT recommended longterm facility Continue IV Venofer as ordered for [...] made to ensure accuracy; however, inadvertent computerized distribution designer errors may be present. Berhane Moreno MD Division of Hospitalist Medicine [facility] PAGER: Epic chat [1] Past Medical History: [...] creatinine, and vancomycin levels interfaced automatically to [employer] and data has been analyzed and interpreted. [...] Chat Hospitalist Progress Note 04/26/2025 9:58 AM [phone]: Please page me for patient care issues. [phone]: Please page [facility] night Hospitalist for any issues. Subjective: Admit [...] diet Regular; 4 carb choices (60 gm/meal) @[id number]@ Medications: Continuous Meds[2] Scheduled Meds[3] LABS: CBC: Recent Labs 04/24/25 0206 04/25/256 04/26/25 003 WBC 9.3 9.5 7.3 RBC 3.68* 3.62* 3.76* HGB 10.6* 10.4* 11.0* HCT 32.8* 32.6* 33.8* MCV 89.1 90.1 89.9 RDW 14.9 14.8 14.8 PLT 367 421 386 BMP: Recent Labs 04/24/25 0206 04/25/256 04/26/25 0039 NA 136 134* 136 K 4.0 [...] daily Wound care team following. PT recommended longterm facility IV Venofer for iron deficiency anemia ordered x 2 dose Hold ferrous sulfate Discussed with residential manager by clyde malone--okay to restart anticoagulation today Continue rest of [...] made to ensure accuracy; however, inadvertent computerized distribution designer errors may be present. Berhane Moreno MD Division of Hospitalist Medicine [facility] PAGER: Clyde malone [1] Past Medical History: Diagnosis Date Abnormal [...] creatinine, and vancomycin levels interfaced automatically to [employer] and data has been analyzed and interpreted. [...] Chat Hospitalist Progress Note 04/25/2025 5:34 PM [phone]: Please page me for patient care issues. [phone]: Please page [facility] night Hospitalist for any issues. Subjective: Admit Date: 04/21/2025 PCP: Tab Dupont Room#: N4-465/[id number] B Interval History: Patient seen and examined [...] diet Regular; 4 carb choices (60 gm/meal) @[id number]@ Medications: Continuous Meds[2] Scheduled Meds[3] LABS: CBC: [...] daily Wound care team following PT recommended longterm facility Check iron profile Patient can be [...] Emergency Contact Information Primary Emergency Contact: Ronald Reynolsd Mobile Relation: Sibling Secondary Emergency Contact: SUMI REYNOLDS Mobile Relation: Daughter Advance Directive: Full Code Discharge planning: Anticipated discharge in 2 to 3 days NOTE: This report was transcribed using voice recognition software. Every effort was made to ensure accuracy; however, inadvertent computerized distribution designer errors may be present. Berhane Moreno MD Division of Hospitalist Medicine [facility] PAGER: Epic chat [1] Past Medical [...] Oral, Daily vancomycin, 1,500 mg, IntraVENous, q12h [facility] Medical [facility] - Infectious Diseases Attending Progress Note Subjective: [...] Component Value Date/Time NA 134 (L) 04/25/2025 0056 K 4.3 04/25/2025 0056 CL 101 04/25/2025 0056 CO2 26 04/25/2025 0056 BUN 14 04/25/2025 0056 CREATININE 0.73 04/25/2025 005 CREATININE 0.57 (L) 10/25/2020 0457 GLUCOSE 213 (H) 04/25/2025 005 CALCIUM 8.2 (L) 04/25/2025 0056 PROT 7.6 04/21/2025 2257 BILITOT 0.5 04/21/2025 225 ALKPHOS 116 04/21/2025 2257 AST 13 04/21/2025 2257 ALT 6 04/21/2025 2257 PROCAL 27.06 (H) 04/14/2024 2318 Lab Results [...] to Meropenem Impression: 64 M admitted from [facility] with: Worsening decubitus ulcer , concerning [...] creatinine, and vancomycin levels interfaced automatically to [employer] and data has been analyzed and interpreted. [...] TIME: 9:15 AM Bridgette Virk PharmD PGY1 Card Table Attendant Available via Secure Chat Images from the original note were not included. Department of General Surgery Daily Progress Note ADMIT DATE: 04/21/2025 TODAY'S DATE: 04/25/2025 HPI: Anmol Reynolds is a 64 y.o. male with significant past medical history of paraplegia s/p surgical complication with Dr. Ashley at [facility], HLD, HTN, MDD, OA, a-fib on eliquis, chronic sacral wounds who presents from his half-way after he states the nurses have become [...] Results from last 7 days Lab Units 04/25/256 04/24/25 0206 04/23/25 0013 SODIUM mmol/L 134* [...] sign off, call with questions or concerns JOE Tripathi CNP 04/25/25 7:58 AM [1] [Held by provider] [...] 10 7 8 LIVER PROFILE: Recent Labs 07/18/25 2257 AST 13 ALT 6 BILITOT 0.5 [...] Daughter Kerwin Ricci Division of Hospitalist Medicine [facility] care [facility] [1] Past Medical History: Diagnosis Date Abnormal [...] (BLE Edema: Moderate pitting, indentation subsides rapidly) Commercial Baking Teacher Strength: Not Performed Chief Complaint Patient presents with Wound Infection Per EMS pt was sent here from the [facility] for wound infections. 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 Nurse states she ordered [...] (kg): 82.41 kg Total Energy Requirements (kcals/day): 5751-2955 (25-30 kcals/kg) Weight Used for Protein Requirements: [...] Net IO Since Admission: -3,820 mL [04/24/25 161] Intake/Output Summary (Last 24 hours) at 04/24/20251614 Last data filed at 04/24/2025 0851 Gross per 24 hour Intake 600 ml Output 2020 ml Net -1420 ml Labs/Meds Reviewed: Scheduled Meds[3] Continuous Meds[4] BMP: Recent Labs 04/21/25225604/23/25 0013 04/24/25 0206 NA 130* 133* 136 K 4.3 3.8 4.0 CL 99 105 101 CO2 * 21* 27 BUN 10 8* 7* CREATININE [...] 04/15/2024 HGBA1C 12.1 (H) 10/25/2020 Recent Labs 04/22/25201304/23/25 0935 04/23/25 1214 04/23/25 1644 04/23/25 2115 [...] in paraplegia) % Weight Change (Calculated): 0 [place] Body Weight (lbs) (Calculated): 196 lbs [place] Body Weight (Kg) (Calculated): 89 kg % [place] Body Weight (Calculated): 99.5 % BMI (kg/m2) (Calculated): 24.4 Weight Adjustment For: Paraplegia % Weight Adjustment: 7.5 - Paraplegia Total Adjusted Percentage (Calculated): 7.5 Adjusted [place] Body Weight (lbs) (Calculated): 181.3 lbs Adjusted [place] Body Weight (kg) (Calculated): 82.41 kg Adjusted [...] Discharge Planning: Too soon to determine Elly Silverjozef MS, RD, LD Contact: or [employer] Chat (dial *[phone] from hospital phone) [1] Past Medical History: [...] DECOMPRESSION performed by Opal Vigil MD at [facility] OR ORTHOPEDIC SURGERY Right removal of hardware [...] creatinine, and vancomycin levels interfaced automatically to Sunlot and data has been analyzed and interpreted. [...] JOE Diaz CNP Family Communication Number Called: [phone] Name of Designated Family Senior Java Developer: Ronald Reynolds Relationship: brother Phone Call Outcome: I spoke with the individual listed above. Family Senior Java Developer Updated on the Following: I updated Ronald [...] chronic sacral wounds who presents from his half-way after he states the nurses have become [...] of Trauma Department of Surgery [facility] [1] Patient Active Problem List Diagnosis [...] INTAKE/OUTPUT: Intake/Output Summary (Last 24 hours) at 04/23/20255 Last data filed at 04/23/2025 1650 Gross per 24 hour Intake -- Output 2600 ml Net -2600 ml Past Medical History: Medical History[1] LABS: CBC: Recent Labs 07/225604/23/25 0013 WBC 12.5* 9.4 RBC 4.03* 3.47* [...] Secondary Emergency Contact: GAILSUMI Mobile Relation: Daughter Kerwin BeckfordDO stuart Division of Hospitalist Medicine [facility] [1] Past Medical History: Diagnosis Date Abnormal [...] original note were not included. PHYSICAL THERAPY [facility] Initial Evaluation Name/MRN: Anmol Reynolds ([id number]) Evaluation Date: 04/23/2025 Date of : 1960 Admission Date: 04/21/2025 9:56 PM Age: 64 y.o. Room/Bed: N4-465/N4-465 B Discharge Recommendation: Detention Facility Equipment Needed: No Assessment IMPRESSION: PT [...] Anxiety 01/06/2017 Other acute osteomyelitis, other site ([facility]) 04/22/2025 Positive blood cultures 05/17/2024 Calculus of ureter 05/06/2024 Bladder calculus 05/05/2024 Pressure injury of coccygeal region, stage 3 ([facility]) 04/20/2024 Septic shock ([facility]) 04/14/2024 Lumbar stenosis with neurogenic claudication 10/24/2020 Spinal stenosis of lumbar region with neurogenic claudication 10/24/2020 Nicotine use disorder 10/15/2020 Unspecified osteoarthritis, unspecified site 10/15/2020 Pilonidal cyst without abscess 10/15/2020 Diabetes mellitus without complication ([facility]) 10/15/2020 Abnormal finding on EKG 10/15/2020 Other [...] x4 Social/Functional History Patient admitted from [facility] . Assistive Equipment: wheelchair - manual [...] of Care supervision is transferred to a [facility] Therapy Services Physical Therapist. Goals and/or treatment [...] DECOMPRESSION performed by Opal Vigil MD at [facility] OR ORTHOPEDIC SURGERY Right removal of hardware ankle US PLACE URETAL STENT PERC PRE-EXIST TRACT S&I (HISTORICAL) Bilateral 04/14/2024 Dr. Patel/Bashir Pharmacy to Dose Vancomycin - Progress Note Lab Results Component Value Date CREATININE 0.54 (L) 04/23/2025 BUN 8 (L) 04/23/2025 WBC 9.4 04/23/2025 VANCORANDOM 12.3 (L) 04/16/2024 VANCOTROUGH 12.4 04/22/2025 Doses, serum creatinine, and vancomycin levels interfaced automatically to Sunlot and data has been analyzed and interpreted. [...] History: Medical History[1] LABS: CBC: Recent Labs 04/21/257 WBC 12.5* RBC 4.03* HGB 11.7* HCT 35.6* MCV 88.3 RDW 14.9 PLT 372 BMP: Recent Labs 04/21/257 NA 130* K 4.3 CL 99 CO2 [...] SUMI REYNOLDS Mobile Relation: Daughter Kerwin Clarke ChaDO yan Division of Hospitalist Medicine [facility] [1] Past Medical History: Diagnosis Date Abnormal [...] creatinine, and vancomycin levels interfaced automatically to Sunlot and data has been analyzed and interpreted. [...] via Secure Chat documented in this encounter [facility] 04-28-2025 Note Pharmacy to Dose Van comycin - Progress Note Lab Results Component Value Date CREATININE 0.64 (L) 04/27/2025 BUN 21 04/27/2025 WBC 8.0 04/27/2025 VANCORANDOM 12.3 (L) 04/16/2024 VANCOTROUGH 12.0 04/24/2025 Doses, serum creatinine, and vancomycin levels interfaced automatically to Sunlot and data has been analyzed and interpreted. [...] DATE: 04/28/25 TIME: 7:21 AM Lauryn Begum PharmSalvador Clinical Pharmacist Available via Secure Chat [facility] 04-27-2025 Plan of care note Assuming coverage from Dr. Alvarez- s/p Mina ischial wound debridement with osteomyelitis. Additional organisms are being reported on OR cx. E raffinosus, Proteus, MRSA, Clostridium ramosum, enteric gosia, and skin gosia. Await Proteus sensitivities prior to completion of OPAT. Will provide final recommendations tomorrow. D/w TCC. Jo-Ann Ortiz MD [facility] 04-27-2025 Note Care Management Prog ress Note Short Medical why still here: pt being treated for osteomyelitis. Receiving IV unaysn and vanc with ID planning on extended IV course- awaiting opat/final plan. Planned Discharge Disposition: Plan for return to [facility]- does not need auth. Barriers/Today we still Wait: ID plan/opat. Length of Stay (Days): 5 GMLOS: 8.4 [facility] 04-27-2025 Progress note Formatting of t his note might be different from the original. Care Management Progress Note Short Medical why still here: pt being treated for osteomyelitis. Receiving IV unaysn and vanc with ID planning on extended IV course- awaiting opat/final plan. Planned Discharge Disposition: Plan for return to [facility]- does not need auth. Barriers/Today we still Wait: ID plan/opat. Length of Stay (Days): 5 GMLOS: 8.4 [facility] 04-27-2025 Nurse Note Patient dressings changed as per orders. Patient tolerated well. Left PICC dressing changed patient tolerated well [facility] 04-27-2025 Note Hospitalist Progress Note 04/27/2025 9:04 AM [phone]: Please page me for patient care issues. [phone]: Please page [facility] night Hospitalist for any issues. Subjective: Admit [...] diet Regular; 4 carb choices (60 gm/meal) @[id number]@ Medications: Continuous Meds[2] Scheduled Meds[3] LABS: CBC: Recent Labs 04/25/25 0056 04/26/25 0039 04/27/25 0304 WBC 9.5 7.3 8.0 RBC 3.62* 3.76* 3.78* HGB 10.4* 11.0* 10.9* HCT 32.6* 33.8* 34.0* MCV 90.1 89.9 89.9 RDW 14.8 14.8 14.9 PLT 421 386 363 BMP: Recent Labs 04/25/25 0056 04/26/25 0039 04/27/25 0304 NA 134* 136 [...] daily Wound care team following. PT recommended longterm facility Continue IV Venofer as ordered for [...] Primary Emergency Con (more content not included)... [facility] 04-27-2025 Note Pharmacy to Dose Van comycin - Progress Note Lab Results Component Value Date CREATININE 0.64 (L) 04/27/2025 BUN 21 04/27/2025 WBC 8.0 04/27/2025 VANCORANDOM 12.3 (L) 04/16/2024 VANCOTROUGH 12.0 04/24/2025 Doses, serum creatinine, and vancomycin levels interfaced automatically to Sunlot and data has been analyzed and interpreted. [...] placed. DATE: 04/27/25 TIME: 7:33 AM Brunilda Gomez, PharmD Clinical Pharmacist Available via Secure Chat [facility] 04-26-2025 Note Care Management Prog ress Note Short Medical why still here: Pt continues to be treated for osteomyelitis. Receiving IV merrem q8hr with plan for 6wk tx per ID-final plan not complete. Planned Discharge Disposition: plan for return to [facility]- will need auth d/t skilled need for IV atb tx. Facility updated and asked to submit for auth. ADELINE complete. Barriers/Today we still Wait: Plan from ID/line placement and auth. Length of Stay (Days): 4 GMLOS: 8.4 [facility] 04-26-2025 Progress note Formatting of t his note might be different from the original. Care Management Progress Note Short Medical why still here: Pt continues to be treated for osteomyelitis. Receiving IV merrem q8hr with plan for 6wk tx per ID-final plan not complete. Planned Discharge Disposition: plan for return to [facility]- will need auth d/t skilled need for IV atb tx. Facility updated and asked to submit for auth. ADELINE complete. Barriers/Today we still Wait: Plan from ID/line placement and auth. Length of Stay (Days): 4 GMLOS: 8.4 [facility] 04-26-2025 Note Hospitalist Progress Note 04/26/2025 9:58 AM [phone]: Please page me for patient care issues. [phone]: Please page [facility] night Hospitalist for any issues. Subjective: Admit Date: 04/21/2025 PCP: Tab Dupont Room#: N4-006/N4-610 A Interval History: Patient seen and examined [...] diet Regular; 4 carb choices (60 gm/meal) @[id number]@ Medications: Continuous Meds[2] Scheduled Meds[3] LABS: CBC: Recent Labs 04/24/25 0206 04/25/256 04/26/25 0039 WBC 9.3 9.5 7.3 RBC 3.68* 3.62* 3.76* HGB 10.6* 10.4* 11.0* HCT 32.8* 32.6* 33.8* MCV 89.1 90.1 89.9 RDW 14.9 14.8 14.8 PLT 367 421 386 BMP: Recent Labs 04/24/25 02004/25/256 04/26/25 0039 NA 136 134* 136 K 4.0 [...] daily Wound care team following. PT recommended longterm facility IV Venofer for iron deficiency anemia ordered x 2 dose Hold ferrous sulfate Discussed with residential manager by [employer] chat--okay to restart anticoagulation today Continue rest [...] monitoring : Accu-C (more content not included)... [facility] 04-26-2025 Note Pharmacy to Dose Van comycin - Progress Note Lab Results Component Value Date CREATININE 0.62 (L) 04/26/2025 BUN 19 04/26/2025 WBC 7.3 04/26/2025 VANCORANDOM 12.3 (L) 04/16/2024 VANCOTROUGH 12.0 04/24/2025 Doses, serum creatinine, and vancomycin levels interfaced automatically to Sunlot and data has been analyzed and interpreted. [...] Gomez, PharmD Clinical Pharmacist Available via Secure Chat [facility] 04-25-2025 Note Hospitalist Progress Note 04/25/2025 5:34 PM [phone]: Please page me for patient care issues. : Please page [facility] night Hospitalist for any issues. Subjective: Admit Date: 04/21/2025 PCP: Tab Dupont Room#: N4-465/N4-269 B Interval History: Patient seen and examined [...] diet Regular; 4 carb choices (60 gm/meal) @[id number]@ Medications: Continuous Meds[2] Scheduled Meds[3] LABS: CBC: [...] daily Wound care team following PT recommended longterm facility Check iron profile Patient can be [...] Daughter Advance D (more content not included)... [facility] 04-25-2025 Note Care Management Prog ress Note Short Medical why still here: Pt continues to be treated for osteomyelitis. ID following- receiving IV merrem and vanc- anticipate care home tx. Planned Discharge Disposition: Pt from [facility]- met with pt this afternoon- introduced self and role. Verified return when stable. Will need auth if pt has skilled needs (IV atb greater than once a day will qualify). Barriers/Today we still Wait: ID plan/line placement/opat. Length of Stay (Days): 3 GMLOS: 8.4 [facility] 04-25-2025 Progress note Formatting of t his note might be different from the original. Care Management Progress Note Short Medical why still here: Pt continues to be treated for osteomyelitis. ID following- receiving IV merrem and vanc- anticipate care home tx. Planned Discharge Disposition: Pt from [facility]- met with pt this afternoon- introduced self and role. Verified return when stable. Will need auth if pt has skilled needs (IV atb greater than once a day will qualify). Barriers/Today we still Wait: ID plan/line placement/opat. Length of Stay (Days): 3 GMLOS: 8.4 [facility] 04-25-2025 Note [facility] Medical [facility] - Infectious Diseases Attending Progress [...] Component Value Date/Time NA 134 (L) 04/25/2025 0056 K 4.3 04/25/2025 0056 CL 101 04/25/2025 0056 CO2 26 04/25/2025 0056 BUN 14 04/25/2025 0056 CREATININE 0.73 04/25/2025 0056 CREATININE 0.57 (L) 10/25/2020 0457 GLUCOSE 213 (H) 04/25/2025 0056 CALCIUM 8.2 (L) 04/25/2025 0056 PROT 7.6 04/21/2025 2257 BILITOT 0.5 04/21/2025 225 ALKPHOS 116 04/21/2025 2257 AST 13 04/21/2025 2257 ALT 6 04/21/2025 2257 PROCAL 27.06 (H) 04/14/2024 2318 Lab Results Component Value Date/Time WBC 9.5 04/25/2025 0056 HGB 10.4 (L) 04/25/202555 HGB 13.7 04/14/2024 1730 HCT 32.6 (L) 04/25/202555 PLT 421 04/25/202555 LYMPHOPCT 20.7 04/25/202555 LYMPHOPCT 32 04/20/2024 0359 MONOPCT 9.3 04/25/202555 MONOPCT 10 04/20/2024 0359 BASOPCT 0.4 04/25/202555 BASOPCT 1 04/19/2024 0428 NEUTROABS 6.5 04/25/202555 Micro: 04/24 tissue cx: E raffinosus so far 04/21 Wound cx: MRSA, anaerobic GNR, not B fragilis Lines: PIV Radiography/Echo/Other: reviewed Antimicrobials, Start/End Dates: Vancomycin Cefepime to Meropenem Impression: 64 M admitted from [facility] with: Worsening decubitus ulcer , concerning [...] optimize wound healing. Will follow. Case d/wCM. [facility] 04-25-2025 Note Pharmacy to Dose Van comycin - Progress Note Lab Results Component Value Date CREATININE 0.73 04/25/2025 BUN 14 04/25/2025 WBC 9.5 04/25/2025 VANCORANDOM 12.3 (L) 04/16/2024 VANCOTROUGH 12.0 04/24/2025 Doses, serum creatinine, and vancomycin levels interfaced automatically to Sunlot and data has been analyzed and interpreted. [...] TIME: 9:15 AM Bridgette Virk, JudyD PGY1 Card Table Attendant Available via [employer] [facility] 04-25-20[facility] Note Department of [facility] l Surgery Daily Progress Note ADMIT DATE: 04/21/2025 TODAY'S DATE: 04/25/2025 HPI: Anmol Reynolds is a 64 y.o. male with significant past medical history of paraplegia s/p surgical complication with Dr. Ashley at [facility], HLD, HTN, MDD, OA, a-fib on eliquis, chronic sacral wounds who presents from his half-way after he states the nurses have become [...] Results from last 7 days Lab Units 04/25/255504/24/25 0206 04/23/25 0013 WBC AUTO 10*3/uL 9.5 9.3 9.4 HEMOGLOBIN g/dL 10.4* 10.6* 9.9* HEMATOCRIT % 32.6* 32.8* 30.7* PLATELETS 10*3/uL 421 367 352 Results from last 7 days Lab Units 04/25/256 04/24/25 0206 04/23/25 0013 SODIUM mmol/L 134* [...] call with questions or concerns Maureen Garduno, PRESS BREAKER - AMPOULE FILLER AND SEALER 04/25/25 7:58 AM [1] [Held by provider] [...] polyethylene glycol (PEG) 3350, sodium chloride 0.9% [facility] 04-24-2025 Note Hospitalist Progress Note 04/24/2025 Subjective: Admit Date: 04/21/2025 PCP: Tab Dupont Room#: N4-379/[id number] B BRIEF HOSPITAL COURSE: 64-year-old male presenting [...] History: Medical History[1] LABS: CBC: Recent Labs 04/21/257 04/23/25 0013 04/24/25 0206 WBC 12.5* 9.4 9.3 RBC 4.03* 3.47* 3.68* HGB 11.7* 9.9* 10.6* HCT 35.6* 30.7* 32.8* MCV 88.3 88.5 89.1 RDW 14.9 14.9 14.9 PLT 372 352 367 BMP: Recent Labs 04/21/25225604/23/251204/24/25 0206 NA 130* 133* 136 K 4.3 [...] precautions: increase ac (more content not included)... [facility] 04-24-2025 Note Patient declined smo rl cessation counseling. Accepting of handout with contact information for future reference. [facility] 04-24-2025 Progress note Formatting of t his note might be different from the original. SW consult-[facility] transportation. SW reviewed chart. Pt is a L[facility] resident of [facility]. [place] is responsible for pt transportation for medical appointments. . [facility] 04-24-2025 Note Return Referral plac ed to [facility] via [facility] per TCC request. Await review and response regarding ability to accept. TCC notified. [facility] 04-24-2025 Progress note Formatting of t his note might be different from the original. [facility] request. Await review and response regarding ability to accept. TCC notified. [facility] 04-24-2025 Note Care Management Prog ress Note Short Medical why still here: Pt adm for tx/evaluation of osteomyelitis. OR this am with surgery for debridement of sacral and ischial wounds. Receiving IV merrem and vanc with ID following- anticipate terminologist needs. Planned Discharge Disposition: Pt from [facility]. Attempted to confirm return with pt however pt sleeping this am- unable to arouse for conversation. Barriers/Today we still Wait: IV atb/ID plan. Length of Stay (Days): 2 GMLOS: 4 [facility] 04-24-2025 Progress note Formatting of t his note might be different from the original. Care Management Progress Note Short Medical why still here: Pt adm for tx/evaluation of osteomyelitis. OR this am with surgery for debridement of sacral and ischial wounds. Receiving IV merrem and vanc with ID following- anticipate care home needs. Planned Discharge Disposition: Pt from [facility]. Attempted to confirm return with pt however pt sleeping this am- unable to arouse for conversation. Barriers/Today we still Wait: IV atb/ID plan. Length of Stay (Days): 2 GMLOS: 4 [facility] 04-24-2025 Note Pharmacy to Dose Van comycin - Progress Note Lab Results Component Value Date CREATININE 0.59 (L) 04/24/2025 BUN 7 (L) 04/24/2025 WBC 9.3 04/24/2025 VANCORANDOM 12.3 (L) 04/16/2024 VANCOTROUGH 12.0 04/24/2025 Doses, serum creatinine, and vancomycin levels interfaced automatically to Sunlot and data has been analyzed and interpreted. [...] Gambino PharmD Clinical Pharmacist Available via [employer] [facility] 04-24-2025 Note Patient: Anmol Santiago en Procedure Summary Date: 04/24/25 Room / Location: [address] Operating Room Anesthesia Start: 729 Anesthesia Stop: 844 Procedure: Sacral wound DEBRIDEMENT SKIN SUBCUTANEOUS TISSUE MUSCLE (Bilateral) Diagnosis: Other acute osteomyelitis, other site (HCC) Pressure injury of coccygeal region, stage 3 ([facility]) Surgeons: Kaela Durand MD Responsible Provider: Kathrin [...] once all PACU criteria has been met. [facility] 04-24-2025 Note Patient: Anmol Franco Giraven en Procedure Summary Date: 04/24/25 Room / Location: [address] Operating Room Anesthesia Start: 729 Anesthesia Stop: 844 Procedure: Sacral wound DEBRIDEMENT SKIN SUBCUTANEOUS TISSUE MUSCLE (Bilateral) Diagnosis: Other acute osteomyelitis, other site ([facility]) Pressure injury of coccygeal region, stage 3 ([facility]) Surgeons: Kaela Durand MD Responsible Provider: Kathrin [...] factors for PONV (4556F) Patient received at aset 2 prophylactic Rx PONV anti-emtic agents of [...] start time until discharged from PACU (G2148) [facility] Anesthesiology Smoking Abstinence The patient is [...] opportunity for questions and acknowledgement of understanding. [facility] 04-24-2025 Nurse Note Patient states nobody here to update [facility] 04-24-2025 Note Family Communication Number Called: [phone] Name of Designated Family Senior Java Developer: Ronald Given Relationship: brother Phone Call Outcome: I spoke with the individual listed above. Family Senior Java Developer Updated on the Following: I updated Ronald on Anmol's surgery. He will rely the message to Ronald's daughter Sumi (phone number provided not functional). [facility] 04-24-2025 Note Airway Date/Time: 04/24/2025 7:37 AM Reason: scheduled Airway not difficult General Information and Staff Patient location during procedure: Procedural Resident/PHILOSOPHY SPECIALIST: Quinten Salgado APRN - PHILOSOPHY SPECIALIST Performed: PHILOSOPHY SPECIALIST Patient Condition Indications for airway management: anesthesia [...] 23 Number of attempts at approach: 1 [facility] 04-24-2025 Note Patient: Anmol Santiago en Procedure Information Date/Time: 04/24/25729 Procedure: Sacral wound DEBRIDEMENT SKIN SUBCUTANEOUS TISSUE MUSCLE (Bilateral) Location: [address] Operating Room Surgeons: Kaela Durand MD Relevant Problems Cardio (+) Hypertension Neuro/Psych (+) Anxiety Other (+) Other acute osteomyelitis, other site ([facility]) (+) Unspecified osteoarthritis, unspecified site Past Medical [...] date: Other reduced mobility No date: Paraplegia ([facility]) No date: Sciatica No date: Spinal stenosis of lumbar region with neurogenic claudication No date: Type 2 diabetes mellitus without complication ([facility]/HCC) ([facility]) No date: Urinary calculus, unspecified No date: UTI (urinary tract infection) Past Surgical History: Past Surgical History: No date: ANKLE SURGERY; Right Comment: He has a titanium plate to the right ankle No date: KNEE SURGERY; Left Comment: ACL No date: KNEE SURGERY; Left Comment: removal of screw 10/24/2020: LAMINECTOMY; Left Comment: LEFT BILATERAL L2-3-4-5 DECOMPRESSION performed by Opal Vigil MD at [facility] OR No date: ORTHOPEDIC SURGERY; Right Comment: [...] Requests [1] No family history on file. [facility] 04-24-2025 Procedure note OPERATIVE REPORT Date of [...] achieved with bovie electrocautery. Two pieces of Knox patch were placed in the wound bed. [...] x 4 cm = 28 cm2 [CPT 17893, 11059] Open biopsy of left ischium [CPT 60185] This note is electronically signed by: Kaela Durand MD 1:56 PM, 04/25/2025. [facility] 04-24-2025 Plan of care note Problem: Pain [...] monitored and maintained or improved Outcome: Progressing [facility] 04-23-2025 Note Hospitalist Progress Note 04/23/2025 Subjective: [...] 14.9 PLT 372 352 BMP: Recent Labs 04/21/25225604/23/2512 NA 130* 133* K 4.3 3.8 CL [...] precautions: increase act (more content not included)... [facility] 04-23-2025 Plan of care note Problem: Pain - Adult Goal: Verbalizes/displays adequate comfort level or baseline comfort level Outcome: Progressing Problem: Safety - Adult Goal: Free from fall injury Outcome: Progressing Problem: Chronic Conditions and Co-morbidities Goal: Patient's chronic conditions and co-morbidity symptoms are monitored and maintained or improved Outcome: Progressing [facility] 04-23-2025 Note PHYSICAL THERAPY [facility] Initial Evaluation Name/MRN: Anmol Reynolds ([id number]) Evaluation Date: 04/23/2025 Date of : 1960 Admission Date: 04/21/2025 9:56 PM Age: 64 y.o. Room/Bed: N4-465/N4-465 B Discharge Recommendation: Detention Facility Equipment Needed: No Assessment IMPRESSION: PT eval completed and the pt is at his functional baseline for transfers, ambulation, balance, and bed mobility. No skilled therapy needs at this time. Recommended return to [facility] level therapy upon disch and PT is [...] Anxiety 01/06/2017 Other acute osteomyelitis, other site ([facility]) 04/22/2025 Positive blood cultures 05/17/2024 Calculus of ureter 05/06/2024 Bladder calculus 05/05/2024 Pressure injury of coccygeal region, stage 3 ([facility]) 04/20/2024 Septic shock ([facility]) 04/14/2024 Lumbar stenosis with neurogenic claudication 10/24/2020 Spinal stenosis of lumbar region with neurogenic claudication 10/24/2020 Nicotine use disorder 10/15/2020 Unspecified osteoarthritis, unspecified site 10/15/2020 Pilonidal cyst without abscess 10/15/2020 Diabetes mellitus without complication ([facility]) 10/15/2020 Abnormal finding on EKG 10/15/2020 Other [...] x4 Social/Functional History Patient admitted from [facility] . Assistive Equipment: wheelchair - manual and [...] Raw Score (No Stairs) : 7 [id number] -HL Score: Sat at edge of bed Plan [...] 0812 Time Out 0822 Minutes 10 Abigail Collins, PT Patient's Physical Therapy Plan of Care supervision is transferred to a [facility] Physical Therapist. Goals and/or treatment plan was established in collaboration with patient/family/other representatives. [1] Past Medical History: Diagnosis Date Abnormal posture Abscess, perineum Anemia BPH (benign prostatic hyperplasia) Chronic back pain Hem (more content not included)... [facility] 04-23-2025 Note Pharmacy to Dose Van comycin - Progress Note Lab Results Component Value Date CREATININE 0.54 (L) 04/23/2025 BUN 8 (L) 04/23/2025 WBC 9.4 04/23/2025 VANCORANDOM 12.3 (L) 04/16/2024 VANCOTROUGH 12.4 04/22/2025 Doses, serum creatinine, and vancomycin levels interfaced automatically to Sunlot and data has been analyzed and interpreted. [...] DATE: 04/23/25 TIME: 8:13 AM Radha Deal [facility] Clinical Pharmacist Available via Secure Chat [facility] 04-23-2025 Plan of care note Problem: Pain [...] monitored and maintained or improved Outcome: Progressing [facility] 04-22-2025 Consult note Associated Order (s): IP CONSULT TO INFECTIOUS DISEASES Images from the original note were not included. [facility] Medical Group - Infectious Diseases Attending Consult Note Reason for Consult: 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 History of Present Illness: 64 M with h/o MRSA lumbar epidural abscess from 2021, s/p decompression and fusion, but left paraplegic with neurogenic bladder. Recent hospitlaizaitons for PNA as well as ESBL Proteus UTI/ sepsis recently at [facility]. He had a sacral decubitus ulcer for years, was already improving but worsened since most recent prolonged hospitalization once more in February 2025. Buttock ulcer developed that time as well. Patient stabilized, completed IV antibiotics, and was doing well except at [facility] increased concern for worsening wound infection, [...] Resource Strain: Low Risk (04/24/2023) Received from [facility] Overall Financial Resource Strain (CARDIA) [...] to Meropenem Impression: 64 M admitted from [facility] with: Worsening decubitus ulcer , concerning [...] DECOMPRESSION performed by Opal Vigil MD at [facility] OR ORTHOPEDIC SURGERY Right removal of hardware ankle US PLACE URETAL STENT PERC PRE-EXIST TRACT S&I (HISTORICAL) Bilateral 04/14/2024 Dr. Patel/Bashir [3] Current Facility-Administered Medications Medication Dose Route Frequency Provider Last Rate Last Admin acetaminophen (Tylenol) tablet 650 mg 650 mg Oral q6h PRN Alberto Boogie NP Or acetaminophen (Tylenol) suppository 650 mg 650 mg Rectal q6h PRN Alberto Boogie NP [Held by provider] apixaban (Eliquis) tablet 5 mg 5 mg Oral BID Alberto Boogie NP bisacodyl (Dulcolax) EC tablet 5 mg 5 mg Oral Daily PRN Ross G Denhoff, SYSTEM SAFETY ENGINEER bisacodyl (Dulcolax) suppository 10 mg 10 mg Rectal Daily PRN Alberto Boogie, SYSTEM SAFETY ENGINEER calcium carbonate (Tums) chewable tablet 1,000 mg 1,000 mg Oral q8h PRN Alberto Boogie, SYSTEM SAFETY ENGINEER [START ON 04/23/2025] chlorhexidine (Hibiclens) 4 % solution Topical Daily Alberto Boogie, SYSTEM SAFETY ENGINEER cyclobenzaprine (Flexeril) tablet 10 mg 10 mg Oral TID PRN Alberto Boogie, SYSTEM SAFETY ENGINEER 10 mg at 04/22/25 0624 dextrose 5 % infusion 100 mL/hr IntraVENous PRN Alberto Boogie, SYSTEM SAFETY ENGINEER dextrose 50 % solution 12.5 g 12.5 g IntraVENous PRN Alberto Boogie, SYSTEM SAFETY ENGINEER DULoxetine (Cymbalta) DR capsule 30 mg 30 mg Oral Daily Alberto Boogie, SYSTEM SAFETY ENGINEER 30 mg at 04/22/25 0923 ferrous sulfate tablet 325 mg 325 mg Oral Daily with breakfast Alberto Boogie, SYSTEM SAFETY ENGINEER 325 mg at 04/22/25920 glucagon (human recombinant) injection 1 mg 1 mg IntraMUSCular PRN Alberto Boogie, SYSTEM SAFETY ENGINEER glucose oral gel 15 g 15 g Oral PRN Alberto Boogie, SYSTEM SAFETY ENGINEER insulin glargine (Lantus) injection 45 Units 45 Units SubCUTAneous q AM Alberto Boogie, SYSTEM SAFETY ENGINEER 45 Units at 04/22/25920 Insulin Lispro (Humalog) injection 0-18 Units 0-18 Units SubCUTAneous TID WC Alberto Boogie, SYSTEM SAFETY ENGINEER 9 Units at 04/22/2521 And Insulin Lispro (Humalog) injection 0-18 Units 0-18 Units SubCUTAneous Nightly Alberto Boogie, SYSTEM SAFETY ENGINEER [START ON 04/24/2025] lactated Ringer's infusion 100 mL/hr IntraVENous Continuous Cari Ling MD linaGLIPtin (Tradjenta) tablet 5 mg 5 mg Oral Daily Alberto Boogie, SYSTEM SAFETY ENGINEER 5 mg at 04/22/25 0946 meropenem (Merrem) 2,000 mg in sodium chloride 0.9 % 100 mL IVPB 2,000 mg IntraVENous q8h Kerwin Ricci DO midodrine (Proamatine) tablet 10 mg 10 mg Oral TID Alberto Boogie, SYSTEM SAFETY ENGINEER 10 mg at 04/22/25 0921 mirtazapine (Remeron) tablet 7.5 mg 7.5 mg Oral Nightly Alberto Miltons, SYSTEM SAFETY ENGINEER naloxone (Narcan) nasal spray 4 mg 4 mg Nasal PRN Alberto Miltons, SYSTEM SAFETY ENGINEER ondansetron ODT (Zofran-ODT) disintegrating tablet 4 mg 4 mg Oral q8h PRN Alberto Miltons, SYSTEM SAFETY ENGINEER Or ondansetron (Zofran) injection 4 mg 4 mg IntraVENous q6h PRN Alberto Sanchez Denhoff, SYSTEM SAFETY ENGINEER oxyCODONE (Roxicodone) immediate release tablet 15 mg 15 mg Oral 4x daily Alberto Sanchez Denhoff, SYSTEM SAFETY ENGINEER 15 mg at 04/22/25 0921 polyethylene glycol (PEG) 3350 (Miralax) packet 17 g 17 g Oral BID Alberto Sanchez Keagan, SYSTEM SAFETY ENGINEER 17 g at 04/22/25 0921 polyethylene glycol (PEG) 3350 (Miralax) packet 17 g 17 g Oral Daily PRN Alberto Miltons, SYSTEM SAFETY ENGINEER pregabalin (Lyrica) capsule 200 mg 200 mg Oral TID Alberto Miltons, SYSTEM SAFETY ENGINEER 200 mg at 04/22/25 0920 senna-docusate sodium (Senokot-S) 8.6-50 MG tablet 2 tablet 2 tablet Oral BID Alberto Miltons, SYSTEM SAFETY ENGINEER 2 tablet at 04/22/25 0921 sodium chloride 0.9% (NS) flush 10 mL 10 mL IntraCATHeter q12h Alberto Sanchez Denhoff, SYSTEM SAFETY ENGINEER 10 mL at 04/22/25 0634 sodium chloride 0.9% (NS) flush 10 mL 10 mL IntraCATHeter PRN Alberto Miltons, SYSTEM SAFETY ENGINEER tamsulosin (Flomax) 24 hr capsule 0.4 mg 0.4 mg Oral Daily Alberto Sanchez Keagan, SYSTEM SAFETY ENGINEER 0.4 mg at 04/22/25 0922 vancomycin IVPB 1500 mg in 250 mL NS (premix) 1,500 mg IntraVENous q12h Alberto Miltons, SYSTEM SAFETY ENGINEER [4] No Known Allergies [5] No family history on file. [facility] 04-22-2025 Consult note Associated Order (s): IP CONSULT TO INFECTIOUS DISEASES Images from the original note were not included. [facility] - Infectious Diseases Attending Consult Note Reason for Consult: 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 History of Present Illness: 64 M with h/o MRSA lumbar epidural abscess from 2021, s/p decompression and fusion, but left paraplegic with neurogenic bladder. Recent hospitlaizaitons for PNA as well as ESBL Proteus UTI/ sepsis recently at [facility]. He had a sacral decubitus ulcer for years, was already improving but worsened since most recent prolonged hospitalization once more in February 2025. Buttock ulcer developed that time as well. Patient stabilized, completed IV antibiotics, and was doing well except at [facility] increased concern for worsening wound infection, [...] Resource Strain: Low Risk (04/24/2023) Received from [facility] Overall Financial Resource Strain (CARDIA) [...] to Meropenem Impression: 64 M admitted from [facility] with: Worsening decubitus ulcer , concerning [...] DECOMPRESSION performed by Opal Vigil MD at [facility] OR ORTHOPEDIC SURGERY Right removal of hardware ankle US PLACE URETAL STENT PERC PRE-EXIST TRACT S&I (HISTORICAL) Bilateral 04/14/2024 Dr. Patel/Bashir [3] Current Facility-Administered Medications Medication Dose Route Frequency Provider Last Rate Last Admin acetaminophen (Tylenol) tablet 650 mg 650 mg Oral q6h PRN Alberto Boogie NP Or acetaminophen (Tylenol) suppository 650 mg 650 mg Rectal q6h PRN Alberto Boogie NP [Held by provider] apixaban (Eliquis) tablet 5 mg 5 mg Oral BID Alberto Boogie NP bisacodyl (Dulcolax) EC tablet 5 mg 5 mg Oral Daily PRN Alberto Boogie NP bisacodyl (Dulcolax) suppository 10 mg 10 mg Rectal Daily PRN Alberto Boogie NP calcium carbonate (Tums) chewable tablet 1,000 mg 1,000 mg Oral q8h PRN Alberto Boogie NP [START ON 04/23/2025] chlorhexidine (Hibiclens) 4 % solution Topical Daily Alberto Boogie, SYSTEM SAFETY ENGINEER cyclobenzaprine (Flexeril) tablet 10 mg 10 mg Oral TID PRN Alberto Boogie, SYSTEM SAFETY ENGINEER 10 mg at 04/22/25 0624 dextrose 5 % infusion 100 mL/hr IntraVENous PRN Alberto Boogie, SYSTEM SAFETY ENGINEER dextrose 50 % solution 12.5 g 12.5 g IntraVENous PRN Alberto Boogie, SYSTEM SAFETY ENGINEER DULoxetine (Cymbalta) DR capsule 30 mg 30 mg Oral Daily Alberto Boogie, SYSTEM SAFETY ENGINEER 30 mg at 04/22/25 0923 ferrous sulfate tablet 325 mg 325 mg Oral Daily with breakfast Alberto Boogie, SYSTEM SAFETY ENGINEER 325 mg at 04/22/25920 glucagon (human recombinant) injection 1 mg 1 mg IntraMUSCular PRN Alberto Boogie, SYSTEM SAFETY ENGINEER glucose oral gel 15 g 15 g Oral PRN Alberto Boogie, SYSTEM SAFETY ENGINEER insulin glargine (Lantus) injection 45 Units 45 Units SubCUTAneous q AM Alberto Boogie, SYSTEM SAFETY ENGINEER 45 Units at 04/22/25920 Insulin Lispro (Humalog) injection 0-18 Units 0-18 Units SubCUTAneous TID WC Alberto Boogie, SYSTEM SAFETY ENGINEER 9 Units at 04/22/25920 And Insulin Lispro (Humalog) injection 0-18 Units 0-18 Units SubCUTAneous Nightly Alberto Boogie, SYSTEM SAFETY ENGINEER [START ON 04/24/2025] lactated Ringer's infusion 100 mL/hr IntraVENous Continuous Cari Ling MD linaGLIPtin (Tradjenta) tablet 5 mg 5 mg Oral Daily Alberto Boogie, SYSTEM SAFETY ENGINEER 5 mg at 04/22/25 0946 meropenem (Merrem) 2,000 mg in sodium chloride 0.9 % 100 mL IVPB 2,000 mg IntraVENous q8h Kerwin Ricci DO midodrine (Proamatine) tablet 10 mg 10 mg Oral TID Alberto Boogie, SYSTEM SAFETY ENGINEER 10 mg at 04/22/2521 mirtazapine (Remeron) tablet 7.5 mg 7.5 mg Oral Nightly Alberto Boogie, SYSTEM SAFETY ENGINEER naloxone (Narcan) nasal spray 4 mg 4 mg Nasal PRN Alberto Boogie, SYSTEM SAFETY ENGINEER ondansetron ODT (Zofran-ODT) disintegrating tablet 4 mg 4 mg Oral q8h PRN Alberto Miltons, SYSTEM SAFETY ENGINEER Or ondansetron (Zofran) injection 4 mg 4 mg IntraVENous q6h PRN Alberto Miltons, SYSTEM SAFETY ENGINEER oxyCODONE (Roxicodone) immediate release tablet 15 mg 15 mg Oral 4x daily Alberto Miltons, SYSTEM SAFETY ENGINEER 15 mg at 04/22/25 0921 polyethylene glycol (PEG) 3350 (Miralax) packet 17 g 17 g Oral BID Alberto Sanchez Keagan, SYSTEM SAFETY ENGINEER 17 g at 04/22/25 0921 polyethylene glycol (PEG) 3350 (Miralax) packet 17 g 17 g Oral Daily PRN Alberto Miltons, SYSTEM SAFETY ENGINEER pregabalin (Lyrica) capsule 200 mg 200 mg Oral TID Alberto Boogie, SYSTEM SAFETY ENGINEER 200 mg at 04/22/25 0920 senna-docusate sodium (Senokot-S) 8.6-50 MG tablet 2 tablet 2 tablet Oral BID Alberto Miltons, SYSTEM SAFETY ENGINEER 2 tablet at 04/22/25 0921 sodium chloride 0.9% (NS) flush 10 mL 10 mL IntraCATHeter q12h Alberto Miltons, SYSTEM SAFETY ENGINEER 10 mL at 04/22/25 0634 sodium chloride 0.9% (NS) flush 10 mL 10 mL IntraCATHeter PRN Alberto Miltons, SYSTEM SAFETY ENGINEER tamsulosin (Flomax) 24 hr capsule 0.4 mg 0.4 mg Oral Daily Alberto Miltons, SYSTEM SAFETY ENGINEER 0.4 mg at 04/22/25 0922 vancomycin IVPB 1500 mg in 250 mL NS (premix) 1,500 mg IntraVENous q12h Alberto Boogie, SYSTEM SAFETY ENGINEER [4] No Known Allergies [5] No family history on file. Associated Order(s): IP CONSULT TO GENERAL SURGERY Images from the original note were not included. Department of General Surgery Surgical Service - ACS Resident Consult Note 04/22/2025 CHIEF COMPLAINT: Chief Complaint Patient presents with Wound Infection Per EMS pt was sent here from the [facility] for wound infections. Pt has two wound [...] s/p surgical complication with Dr. Ashley at [facility], HLD, HTN, MDD, OA, a-fib on eliquis, chronic sacral wounds who presents from his half-way after he states the nurses have become [...] Name: ANMOL REYNOLDS : 1960 Exam Date/Time: 04/22/2025 00:01 Procedure: [...] This note may have been dictated using [employer] Edition 2.6 and/or LIANAI Voice Recognition Feature. The document was proofread; however, unrecognized voice recognition distribution designer errors may be present. [1] Past Medical [...] DECOMPRESSION performed by Opal Vigil MD at [facility] OR ORTHOPEDIC SURGERY Right removal of hardware ankle US PLACE URETAL STENT PERC PRE-EXIST TRACT S&I (HISTORICAL) Bilateral 04/14/2024 Dr. Patel/Bashir [3] Current Facility-Administered Medications Medication Dose Route Frequency Provider Last Rate Last Admin acetaminophen (Tylenol) tablet 650 mg 650 mg Oral q6h PRN Alberto Boogie NP Or acetaminophen (Tylenol) suppository 650 mg 650 mg Rectal q6h PRN Alberto Boogie NP [Held by provider] apixaban (Eliquis) tablet 5 mg 5 mg Oral BID Alberto Bogoie NP bisacodyl (Dulcolax) EC tablet 5 mg 5 mg Oral Daily PRN Alberto Boogie NP bisacodyl (Dulcolax) suppository 10 mg 10 mg Rectal Daily PRN Alberto Boogie NP calcium carbonate (Tums) chewable tablet 1,000 mg 1,000 mg Oral q8h PRN Alberto Boogie NP cefepime (Maxipime) 2,000 mg in sodium chloride 0.9 % 50 mL IVPB Mini-Bag Plus 2,000 mg IntraVENous q8h Alberto Boogie NP cyclobenzaprine (Flexeril) tablet 10 mg 10 mg Oral TID PRN Alberto Boogie NP dextrose 5 % infusion 100 mL/hr IntraVENous PRN Alberto Boogie NP dextrose 50 % solution 12.5 g 12.5 g IntraVENous PRN Ross G Denhoff, SYSTEM SAFETY ENGINEER DULoxetine (Cymbalta) DR capsule 30 mg 30 mg Oral Daily Alberto Boogie, SYSTEM SAFETY ENGINEER ferrous sulfate tablet 325 mg 325 mg Oral Daily with breakfast Alberto Boogie, SYSTEM SAFETY ENGINEER glucagon (human recombinant) injection 1 mg 1 mg IntraMUSCular PRN Alberto Boogie, SYSTEM SAFETY ENGINEER glucose oral gel 15 g 15 g Oral PRN Alberto Miltons, SYSTEM SAFETY ENGINEER insulin glargine (Lantus) injection 45 Units 45 Units SubCUTAneous q AM Alberto Boogie, SYSTEM SAFETY ENGINEER Insulin Lispro (Humalog) injection 0-18 Units 0-18 Units SubCUTAneous TID WC Alberto Miltons, SYSTEM SAFETY ENGINEER And Insulin Lispro (Humalog) injection 0-18 Units 0-18 Units SubCUTAneous Nightly Alberto Boogie, SYSTEM SAFETY ENGINEER linaGLIPtin (Tradjenta) tablet 5 mg 5 mg Oral Daily Alberto Boogie, SYSTEM SAFETY ENGINEER midodrine (Proamatine) tablet 10 mg 10 mg Oral TID Alberto Boogie, SYSTEM SAFETY ENGINEER mirtazapine (Remeron) tablet 7.5 mg 7.5 mg Oral Nightly Alberto Boogie, SYSTEM SAFETY ENGINEER naloxone (Narcan) nasal spray 4 mg 4 mg Nasal PRN Alberto Boogie, SYSTEM SAFETY ENGINEER ondansetron ODT (Zofran-ODT) disintegrating tablet 4 mg 4 mg Oral q8h PRN Alberto Boogie, SYSTEM SAFETY ENGINEER Or ondansetron (Zofran) injection 4 mg 4 mg IntraVENous q6h PRN Alberto Boogie, SYSTEM SAFETY ENGINEER oxyCODONE (Roxicodone) immediate release tablet 15 mg 15 mg Oral 4x daily Alberto Miltons, SYSTEM SAFETY ENGINEER polyethylene glycol (PEG) 3350 (Miralax) packet 17 g 17 g Oral BID Alberto Miltons, SYSTEM SAFETY ENGINEER polyethylene glycol (PEG) 3350 (Miralax) packet 17 g 17 g Oral Daily PRN Alberto Boogie, SYSTEM SAFETY ENGINEER pregabalin (Lyrica) capsule 200 mg 200 mg Oral TID Alberto Boogie, SYSTEM SAFETY ENGINEER senna-docusate sodium (Senokot-S) 8.6-50 MG tablet 2 tablet 2 tablet Oral BID Alberto Miltons, SYSTEM SAFETY ENGINEER tamsulosin (Flomax) 24 hr capsule 0.4 mg 0.4 mg Oral Daily Alberto Miltons, SYSTEM SAFETY ENGINEER vancomycin IVPB 1500 mg in 250 mL NS (premix) 1,500 mg IntraVENous q12h Alberto Boogie NP [4] Social History Socioeconomic History Marital status: [...] Resource Strain: Low Risk (04/24/2023) Received from [facility] Overall Financial Resource Strain (CARDIA) [...] []Other Discussed/ With: [x]Patient/Family [x]RN []Consultants [x]Primary []/[facility] []Other I spent total time of 60 [...] appropriate exam and evaluation Meliton Carrero MD, [facility] Trauma, Surgical Critical Care & Acute Care Surgery Division of Trauma Department of Surgery [facility] [1] Patient Active Problem List Diagnosis [...] creatinine, and vancomycin levels interfaced automatically to Sunlot and data has been analyzed and interpreted. [...] via Secure Chat documented in this encounter [facility] 04-22-2025 Note Hospitalist Progress Note 04/22/2025 Subjective: [...] intensive monitoring: parenteral (more content not included)... [facility] 04-22-2025 Plan of care note Problem: Pain [...] monitored and maintained or improved Outcome: Progressing [facility] 04-22-2025 Note Pharmacy to Dose Van comycin - Progress Note Lab Results Component Value Date CREATININE 0.65 (L) 04/21/2025 BUN 10 04/21/2025 WBC 12.5 (H) 04/21/2025 VANCORANDOM 12.3 (L) 04/16/2024 VANCOTROUGH 12.4 04/22/2025 Doses, serum creatinine, and vancomycin levels interfaced automatically to Sunlot and data has been analyzed and interpreted. [...] PharmD Clinical Pharmacist Available via Secure Chat [facility] 04-22-2025 Plan of care note Problem: Pain [...] monitored and maintained or improved Outcome: Progressing [facility] 04-22-2025 Consult note Associated Order (s): IP CONSULT TO GENERAL SURGERY Images from the original note were not included. Department of General Surgery Surgical Service - ACS Resident Consult Note 04/22/2025 CHIEF COMPLAINT: Chief Complaint Patient presents with Wound Infection Per EMS pt was sent here from the [facility] for wound infections. Pt has two wound [...] s/p surgical complication with Dr. Ashley at [facility], HLD, HTN, MDD, OA, a-fib on eliquis, chronic sacral wounds who presents from his half-way after he states the nurses have become [...] Name: ANMOL REYNOLDS : 1960 Exam Date/Time: 04/22/2025 00:01 Procedure: [...] hold Eliquis Patient discussed with attending, Dr. Allard. Kathrin Nielson MD General Surgery Resident 04/22/25 4:39 AM This note may have been dictated using [employer] Practice Edition 2.6 and/or LIANAI Voice Recognition Feature. The document was proofread; however, unrecognized voice recognition distribution designer errors may be present. [1] Past Medical [...] DECOMPRESSION performed by Opal Vigil MD at [facility] OR ORTHOPEDIC SURGERY Right removal of hardware ankle US PLACE URETAL STENT PERC PRE-EXIST TRACT S&I (HISTORICAL) Bilateral 04/14/2024 Dr. Patel/Bashir [3] Current Facility-Administered Medications Medication Dose Route Frequency Provider Last Rate Last Admin acetaminophen (Tylenol) tablet 650 mg 650 mg Oral q6h PRN Alberto Boogie NP Or acetaminophen (Tylenol) suppository 650 mg 650 mg Rectal q6h PRN Alberto Boogie NP [Held by provider] apixaban (Eliquis) tablet 5 mg 5 mg Oral BID Alberto Boogie NP bisacodyl (Dulcolax) EC tablet 5 mg 5 mg Oral Daily PRN Alberto Boogie NP bisacodyl (Dulcolax) suppository 10 mg 10 mg Rectal Daily PRN Alberto Boogie NP calcium carbonate (Tums) chewable tablet 1,000 mg 1,000 mg Oral q8h PRN Alberto Boogie NP cefepime (Maxipime) 2,000 mg in sodium chloride 0.9 % 50 mL IVPB Mini-Bag Plus 2,000 mg IntraVENous q8h Alberto Sanchez Denhoff, SYSTEM SAFETY ENGINEER cyclobenzaprine (Flexeril) tablet 10 mg 10 mg Oral TID PRN Alberto Miltons, SYSTEM SAFETY ENGINEER dextrose 5 % infusion 100 mL/hr IntraVENous PRN Alberto G Keagan, SYSTEM SAFETY ENGINEER dextrose 50 % solution 12.5 g 12.5 g IntraVENous PRN Alberto Miltons, SYSTEM SAFETY ENGINEER DULoxetine (Cymbalta) DR capsule 30 mg 30 mg Oral Daily Alberto Sanchez Denhoff, SYSTEM SAFETY ENGINEER ferrous sulfate tablet 325 mg 325 mg Oral Daily with breakfast Alberto Sanchez Keagan, SYSTEM SAFETY ENGINEER glucagon (human recombinant) injection 1 mg 1 mg IntraMUSCular PRN Alberto G Keagan, SYSTEM SAFETY ENGINEER glucose oral gel 15 g 15 g Oral PRN Alberto G Denhoff, SYSTEM SAFETY ENGINEER insulin glargine (Lantus) injection 45 Units 45 Units SubCUTAneous q AM Alberto Miltons, SYSTEM SAFETY ENGINEER Insulin Lispro (Humalog) injection 0-18 Units 0-18 Units SubCUTAneous TID WC Alberto G Keagan, SYSTEM SAFETY ENGINEER And Insulin Lispro (Humalog) injection 0-18 Units 0-18 Units SubCUTAneous Nightly Alberto Sacnhez Denhoff, SYSTEM SAFETY ENGINEER linaGLIPtin (Tradjenta) tablet 5 mg 5 mg Oral Daily Alberto G Keagan, SYSTEM SAFETY ENGINEER midodrine (Proamatine) tablet 10 mg 10 mg Oral TID Alberto Miltons, SYSTEM SAFETY ENGINEER mirtazapine (Remeron) tablet 7.5 mg 7.5 mg Oral Nightly Alberto Sanchez Keagan, SYSTEM SAFETY ENGINEER naloxone (Narcan) nasal spray 4 mg 4 mg Nasal PRN Alberto Miltons, SYSTEM SAFETY ENGINEER ondansetron ODT (Zofran-ODT) disintegrating tablet 4 mg 4 mg Oral q8h PRN Alberto Sanchez Keagan, SYSTEM SAFETY ENGINEER Or ondansetron (Zofran) injection 4 mg 4 mg IntraVENous q6h PRN Alberto G Denhoff, SYSTEM SAFETY ENGINEER oxyCODONE (Roxicodone) immediate release tablet 15 mg 15 mg Oral 4x daily Alberto G Denhoff, SYSTEM SAFETY ENGINEER polyethylene glycol (PEG) 3350 (Miralax) packet 17 g 17 g Oral BID Alberto Miltons, SYSTEM SAFETY ENGINEER polyethylene glycol (PEG) 3350 (Miralax) packet 17 g 17 g Oral Daily PRN Alberto Miltons, SYSTEM SAFETY ENGINEER pregabalin (Lyrica) capsule 200 mg 200 mg Oral TID Alberto G Denhoff, SYSTEM SAFETY ENGINEER senna-docusate sodium (Senokot-S) 8.6-50 MG tablet 2 tablet 2 tablet Oral BID Alberto Sanchez TREVOR Boogie tamsulosin (Flomax) 24 hr capsule 0.4 mg 0.4 mg Oral Daily Alberto Sanchez TREVOR Boogie vancomycin IVPB 1500 mg in 250 mL NS (premix) 1,500 mg IntraVENous q12h Alberto Sanchez TREVOR Boogie [4] Social History Socioeconomic History Marital status: [...] Resource Strain: Low Risk (04/24/2023) Received from [facility] Overall Financial Resource Strain (CARDIA) [...] appropriate exam and evaluation Meliton Carrero MD, [facility] Trauma, Surgical Critical Care & Acute Care Surgery Division of Trauma Department of Surgery [facility] [1] Patient Active Problem List Diagnosis [...] blood cultures Other acute osteomyelitis, other site ([facility]) [facility] 04-22-2025 Consult note Formatting of th is [...] creatinine, and vancomycin levels interfaced automatically to [employer] and data has been analyzed and interpreted. [...] RPh Clinical Pharmacist Available via Secure Chat [facility] [place] 04-22-2025 History and physical note Attending History and Physical Admit Date: 04/21/2025 PCP: Tab Dupont CHIEF COMPLAINT: Wound infection Reason for Admission: Osteomyelitis History Obtained From: patient HISTORY OF PRESENT ILLNESS: Anmol is a 64 y.o. male with past medical history below who presents with chief complaint listed above. Patient sent to [facility] ER by [facility] to leave the patient's wounds on his sacrum were worsening and becoming infected. Patient is a paraplegic for the last 4 years after surgical complication with Dr. Ashley at [facility]. ER workup was significant for [...] he normally does but states that the half-way felt like his wounds were getting worse [...] Resource Strain: Low Risk (04/24/2023) Received from [facility] Overall Financial Resource Strain (CARDIA) Difficulty of Paying Living Expenses: Not hard at all Food Insecurity: No Food Insecurity (02/17/2025) Received from [facility] Hunger Vital Sign Worried About Running Out of Food in the Last Year: Never true Ran Out of Food in the Last Year: Never true Transportation Needs: No Transportation Needs (02/17/2025) Received from [facility] PRAPARE - Transportation Lack of Transportation (Medical): No Lack of Transportation (Non-Medical): No Physical Activity: Not on file Stress: Not on file Social Connections: Not on file Intimate Partner Violence: Not At Risk (05/18/2024) Humiliation, Afraid, Rape, and Kick questionnaire Fear of Current or Ex-Partner: No Emotionally Abused: No Physically Abused: No Sexually Abused: No Housing Stability: Unknown (02/17/2025) Received from [facility] Housing Stability Vital Sign Unable [...] - DO NOT do CPR, intubation] [_] [DNR-DEVELOPMENT TECHNOLOGIST - Comfort care only] [_] DNR form [...] DECOMPRESSION performed by Opal Vigil MD at [facility] OR ORTHOPEDIC SURGERY Right removal of hardware ankle US PLACE URETAL STENT PERC PRE-EXIST TRACT S&I (HISTORICAL) Bilateral 04/14/2024 Dr. Patel/Bashir [3] No family history on file. [4] Current Facility-Administered Medications: vancomycin IVPB 1500 mg in 250 mL NS (premix), 1,500 mg, IntraVENous, Once, Chele León MD, Last Rate: 125 mL/hr at 04/22/25 0027, 1,500 mg at 04/22/25 0027 Current Outpatient Medications: acetaminophen (Tylenol) 325 MG [...] treatment as noted above. Mike Bueno MD [facility] [place] Phone: 04-22-2025 Note Attestation signed by Georgette [...] chief complaint listed above. Patient sent to [facility] ER by [facility] to leave the patient's wounds on his sacrum were worsening and becoming infected. Patient is a paraplegic for the last 4 years after surgical complication with Dr. Ashley at [facility]. ER workup was significant for [...] he normally does but states that the half-way felt like his wounds were getting worse [...] Resource Strain: Low Risk (04/24/2023) Received from [facility] Overall Financial Resource Strain (CARDIA) Difficulty of Paying Living Expenses: Not hard at all Food Insecurity: No Food Insecurity (02/17/2025) Received from [facility] Hunger Vital Sign Worried About Running Out of Food in the Last Year: Never true Ran Out of Food in the Last Year: Never true Transportation Needs: No Transportation Needs (02/17/2025) Received from [facility] PRAPARE - Transportation Lack of Transportation (Medical): No Lack of Transportation (Non-Medical): No Physical Activity: Not on file Stress: Not on file Social Connections: Not on file Intimate Partner Violence: Not At Risk (05/18/2024) Humiliation, Afraid, Rape, and Kick questionnaire Fear of Current or Ex-Partner: No Emotionally Abused: No Physically Abused: No Sexually Abused: No Housing Stability: Unknown (02/17/2025) Received from [facility] Housing Stability Vital Sign Unable [...] Normal rate a (more content not included)... [facility] 04-22-2025 History and physical note Attending History and Physical Admit Date: 04/21/2025 PCP: Tab Dupont CHIEF COMPLAINT: Wound infection Reason for Admission: Osteomyelitis History Obtained From: patient HISTORY OF PRESENT ILLNESS: Anmol is a 64 y.o. male with past medical history below who presents with chief complaint listed above. Patient sent to [facility] ER by [facility] to leave the patient's wounds on his sacrum were worsening and becoming infected. Patient is a paraplegic for the last 4 years after surgical complication with Dr. Ashley at [facility]. ER workup was significant for [...] he normally does but states that the half-way felt like his wounds were getting worse [...] Resource Strain: Low Risk (04/24/2023) Received from [facility] Overall Financial Resource Strain (CARDIA) Difficulty of Paying Living Expenses: Not hard at all Food Insecurity: No Food Insecurity (02/17/2025) Received from [facility] Hunger Vital Sign Worried About Running Out of Food in the Last Year: Never true Ran Out of Food in the Last Year: Never true Transportation Needs: No Transportation Needs (02/17/2025) Received from [facility] PRAPARE - Transportation Lack of Transportation (Medical): No Lack of Transportation (Non-Medical): No Physical Activity: Not on file Stress: Not on file Social Connections: Not on file Intimate Partner Violence: Not At Risk (05/18/2024) Humiliation, Afraid, Rape, and Kick questionnaire Fear of Current or Ex-Partner: No Emotionally Abused: No Physically Abused: No Sexually Abused: No Housing Stability: Unknown (02/17/2025) Received from [facility] Housing Stability Vital Sign Unable [...] of the patient was discussed with Dr. uBeno, who stated, in summary: large sacral and [...] - DO NOT do CPR, intubation] [_] [DNR-DEVELOPMENT TECHNOLOGIST - Comfort care only] [_] DNR form [...] life care, with patient and/or family/surrogate. Alberto Boogie NP Division of Hospitalist Medicine [1] Past Medical [...] DECOMPRESSION performed by Opal Vigil MD at [facility] OR ORTHOPEDIC SURGERY Right removal of hardware ankle US PLACE URETAL STENT PERC PRE-EXIST TRACT S&I (HISTORICAL) Bilateral 04/14/2024 Dr. Patel/Bashir [3] No family history on file. [4] Current Facility-Administered Medications: vancomycin IVPB 1500 mg in 250 mL NS (premix), 1,500 mg, IntraVENous, Once, Chele León MD, Last Rate: 125 mL/hr at 04/22/25 0027, 1,500 mg at 04/22/25 0027 Current Outpatient Medications: acetaminophen (Tylenol) 325 MG [...] Mike Bueno MD documented in this encounter [facility] 04-21-2025 Emergency department Note Placed new meplix pads on open wounds on sacrum. Pictures updated in pt's chart. [facility] 04-21-2025 Emergency department Note Placed new meplix pads on open wounds on sacrum. Pictures updated in pt's chart. EMERGENCY DEPARTMENT ENCOUNTER Pt Name: Anmol Reynolds Birthdate 1960 Date of evaluation: 04/21/2025 ED Provider: Chele León MD CHIEF COMPLAINT Chief Complaint Patient presents with Wound Infection Per EMS pt was sent here from the [facility] for wound infections. Pt has two wound [...] Family History[3] SOCIAL HISTORY Social History[4] SCREENINGS [place] Coma Scale Best Eye Response: Spontaneous Best [...] Procedure Abnormality Status --------- ------ Culture, Aerobic Bacteri...[[id number]] Abnormal Preliminary result Anaerobic culture[[id number]] In process Please view results for these [...] IMPRESSION 1. Other acute osteomyelitis, other site ([facility]) DISPOSITION Admit 04/22/2025 01:32:25 AM PATIENT REFERRED [...] DECOMPRESSION performed by Opal Vigil MD at [facility] OR ORTHOPEDIC SURGERY Right removal of hardware [...] Resource Strain: Low Risk (04/24/2023) Received from [facility] Overall Financial Resource Strain (CARDIA) Difficulty of Paying Living Expenses: Not hard at all Food Insecurity: No Food Insecurity (02/17/2025) Received from [facility] Hunger Vital Sign Worried About Running Out of Food in the Last Year: Never true Ran Out of Food in the Last Year: Never true Transportation Needs: No Transportation Needs (02/17/2025) Received from [facility] PRAPARE - Transportation Lack of Transportation (Medical): No Lack of Transportation (Non-Medical): No Intimate Partner Violence: Not At Risk (05/18/2024) Humiliation, Afraid, Rape, and Kick questionnaire Fear of Current or Ex-Partner: No Emotionally Abused: No Physically Abused: No Sexually Abused: No Housing Stability: Unknown (02/17/2025) Received from [facility] Housing Stability Vital Sign Unable to Pay for Housing in the Last Year: No Homeless in the Last Year: No Chele León MD Resident 04/22/259 Cosigned by Brad Campos MD at 04/22/2025 2:22 AM EDT documented in this encounter [facility] 04-21-2025 Physician Emergency department Note EMERGENCY DEPARTMENT ENCOUNTER Pt Name: Anmol Reynolds Birthdate 1960 Date of evaluation: 04/21/2025 ED Provider: Chele León MD CHIEF COMPLAINT Chief Complaint Patient presents with Wound Infection Per EMS pt was sent here from the [facility] for wound infections. Pt has two wound [...] Family History[3] SOCIAL HISTORY Social History[4] SCREENINGS [place] Coma Scale Best Eye Response: Spontaneous Best [...] Procedure Abnormality Status --------- ------ Culture, Aerobic Bacteri...[[id number]] Abnormal Preliminary result Anaerobic culture[[id number]] In process Please view results for these [...] received IV vancomycin, IV cefepime for coverage. [facility] hospitalist was consulted for admission for [...] DECOMPRESSION performed by Opal Vigil MD at [facility] OR ORTHOPEDIC SURGERY Right removal of hardware [...] Resource Strain: Low Risk (04/24/2023) Received from [facility] Overall Financial Resource Strain (CARDIA) Difficulty of Paying Living Expenses: Not hard at all Food Insecurity: No Food Insecurity (02/17/2025) Received from [facility] Hunger Vital Sign Worried About Running Out of Food in the Last Year: Never true Ran Out of Food in the Last Year: Never true Transportation Needs: No Transportation Needs (02/17/2025) Received from [facility] PRAPARE - Transportation Lack of Transportation (Medical): No Lack of Transportation (Non-Medical): No Intimate Partner Violence: Not At Risk (05/18/2024) Humiliation, Afraid, Rape, and Kick questionnaire Fear of Current or Ex-Partner: No Emotionally Abused: No Physically Abused: No Sexually Abused: No Housing Stability: Unknown (02/17/2025) Received from [facility] Housing Stability Vital Sign Unable to Pay for Housing in the Last Year: No Homeless in the Last Year: No Chele León MD Resident 04/22/25 0219 Cosigned by Brad Campso MD at 04/22/2025 2:22 AM EDT [facility] 04-21-2025 Physician Emergency department Note Patient: Anmol [...] ago. States that he is at a half-way and they were concerned that his wounds [...] EMS pt was sent here from the [facility] for wound infections. Pt has two wound [...] Family History[3] SOCIAL HISTORY Social History[4] SCREENINGS [place] Coma Scale Best Eye Response: Spontaneous Best [...] Procedure Abnormality Status --------- ------ Culture, Aerobic Bacteri...[[id number]] Abnormal Preliminary result Anaerobic culture[[id number]] In process Please view results for these tests on the individual orders. CULTURE ANAEROBIC All other labs were within normal range or not returned as of this dictation. EMERGENCY DEPARTMENT COURSE and DIFFERENTIAL DIAGNOSIS/MDM: Vitals: Vitals: 04/21/252227 BP: 113/62 BP Location: Right arm Patient [...] IMPRESSION 1. Other acute osteomyelitis, other site ([facility]) DISPOSITION Admit 04/22/2025 01:32:25 AM PATIENT REFERRED [...] DECOMPRESSION performed by Opal Vigil MD at [facility] OR ORTHOPEDIC SURGERY Right removal of hardware [...] Resource Strain: Low Risk (04/24/2023) Received from [facility] Overall Financial Resource Strain (CARDIA) Difficulty of Paying Living Expenses: Not hard at all Food Insecurity: No Food Insecurity (02/17/2025) Received from [facility] Hunger Vital Sign Worried About Running Out of Food in the Last Year: Never true Ran Out of Food in the Last Year: Never true Transportation Needs: No Transportation Needs (02/17/2025) Received from [facility] PRAPARE - Transportation Lack of Transportation (Medical): No Lack of Transportation (Non-Medical): No Intimate Partner Violence: Not At Risk (05/18/2024) Humiliation, Afraid, Rape, and Kick questionnaire Fear of Current or Ex-Partner: No Emotionally Abused: No Physically Abused: No Sexually Abused: No Housing Stability: Unknown (02/17/2025) Received from [facility] Housing Stability Vital Sign Unable to Pay for Housing in the Last Year: No Homeless in the Last Year: No Brad Campos MD 04/22/25 0201 [place] Phone: 03-24-2025 Telephone encounter Note Per op note pt should get a renal US in [address]. [address] the order? [facility] 03-24-2025 Miscellaneous Notes Per op note pt should get a renal US in [address] the order? documented in this encounter [facility] 03-20-2025 Note HNO ID: [id number] Author: JAX VALENZUELA APRN.PHILOSOPHY SPECIALIST Service: Anesthesiology Author Type: Nurse Warehouse Laborer Type: Anesthesia Procedure Notes Filed: 03/20/2025 10:33 [...] Imaging Guidance Used: No SIGNATURE: Jax Valenzuela APRN.PHILOSOPHY SPECIALIST PATIENT NAME: Anmol Araujo Given DATE: March 20, 2025 TIME: 10:32 AM CSN: [id number] [facility] 03-20-2025 Note HNO ID: [id number] Author: JAX VALENZUELA APRN.PHILOSOPHY SPECIALIST Service: Anesthesiology Author Type: Nurse Warehouse Laborer Type: Anesthesia Procedure Notes Filed: 03/20/2025 10:32 Note Text: ANESTHESIOLOGY PROCEDURE NOTE Airway General Information Procedure Start Time/Medication Administration: 03/20/2025 10:27 AM Procedure End Time: 03/20/2025 10:27 AM Patient location during procedure: OR Consent Obtained: Yes Patient identity confirmed: arm band and patient Staffing PHILOSOPHY SPECIALIST: Jax Valenzuela APRN.PHILOSOPHY SPECIALIST Performed by: BENJA Indications and Patient Condition Indications for airway management: anesthesia Preoxygenated: yes anesthesia circuit Patient position: sniffing Method: asleep Difficult Mask: No Final Airway Details Final airway type: supraglottic airway Final Supraglottic Airway: i-gel Size 5 Seal Adequate: yes Failed airway: no Airway not difficult SIGNATURE: Jax Valenzuela APRN.PHILOSOPHY SPECIALIST PATIENT NAME: Anmol Araujo Given DATE: March 20, 2025 TIME: 10:32 AM CSN: [id number] [facility] 03-15-2025 Telephone encounter Note Spoke to nursing facility who states Pt is going to proceed with surgery at [facility]. [facility] 03-15-2025 Miscellaneous Notes Spoke to nursing facility who states Pt is going to proceed with surgery at [facility]. Left message for Pts nurse to call me back. Can you call [facility] and see if they are going to send disc to us? Or if patient still scheduled for procedure at [facility]. [facility] number: [phone] Still need disc with images. Will need to review with Dr. Patel. Is it OK to get Pt scheduled for surgery? Please advise. Talked to staff from [facility] that patient would like to have procedure at [facility]. Requested that CD with images from [facility] be sent to [facility] urology. Staff will let Farideh know- she does scheduling/arranges procedures for residents. [facility] number: [phone] documented in this encounter [facility] 03-15-2025 Telephone encounter Note Left message for Pts nurse to call me back. [facility] 03-14-2025 Note HNO ID: [id number] Author: MILAD GOODSON MD Service: ? Author Type: Physician Type: Progress Notes Filed: 03/20/2025 10:37 Note Text: INFECTIOUS DISEASE WOUND CENTER NOTE Patient Name: Anmol Reynolds Date: 03/14/2025 ASSESSMENT: Worsening ischial wound post hospitalization at [facility] recently Chronic sacral S5 segment chronic [...] clinical infection in the area Wound center PRESS BREAKER follow up in 1 week INTERVAL HISTORY: ROS done with pt and negative unless stated. Was recently admitted to [facility] and needed intubation and ventilation. Since [...] 11/25/2021 8 09/06/2021 (more content not included)... [facility] 03-14-2025 History of Present illness Narrative Images from the original note were not included. INFECTIOUS DISEASE WOUND CENTER NOTE Patient Name: Anmol Reynolds Date: 03/14/2025 ASSESSMENT: Worsening ischial wound post hospitalization at [facility] recently Chronic sacral S5 segment chronic [...] clinical infection in the area Wound center PRESS BREAKER follow up in 1 week INTERVAL HISTORY: ROS done with pt and negative unless stated. Was recently admitted to [facility] and needed intubation and ventilation. Since [...] with multiple staff Home Care Company/Nursing Facility: [facility] Consent captured for debridement per (Provider) and good until Special Instructions (for example, patient stands at the bedside for exam/dressing): bed Anticoagulant Therapy: Eliquis Living Situation (ie... [facility]ment, [facility], [facility] Who [facility]: facility Who will [...] BY PROVIDER: Anesthetic Used: N/A applied per museum preparator # 1 & 2 Other procedure: Specimen [...] order date DME: [employer] , PH: [phone] SPECIAL NEEDS: EFax orders to [facility] [phone] Emotional support N/A OR set-up N/A Diagnostic Sales Specialist N/A Incontinence needs N/A DISCHARGED in stable [...] be drawn PARI and results faxed to [facility] [phone] Stop smoking EDUCATION: The patient/family was instructed [...] the [facility] documented in this encounter [facility] 03-14-2025 Instructions Dawood Tiwari RN - 03/14/2025 2:16 PM EDT WOUND CARE INSTRUCTIONS- Anmol Reynolds Wound location: sacrum & left ischium [facility] Wound Cleansing: -Gather supplies -Place down a [...] following changes to the Wound Center at [phone] or go to the Emergency Department: Fever or chills Increased drainage Green or yellow drainage Foul odor Increased pain Hardness around the wound Redness, warmth or swelling of the surrounding tissue Color change to the wound When contacting the wound center at the ([phone]): Leave a message that includes your full [...] be drawn PARI and results faxed to [facility] [phone] Stop smoking Milad Goodson MD/mjmina/lt documented in this encounter [facility] 03-14-2025 Note HNO ID: [id number] Author: DAWOOD TIWARI RN Service: ? Author Type: Registered Nurse Type: Progress Notes Filed: 03/14/2025 14:54 Note Text: Nursing Documentation Pertinent Medical History: paraplegia, MRSA, osteomyelitis, UTI, DM2, neuropathy, pyelonephritis, Wound Etiology according to patient: sacrum wound has had for four years per pt Patient arrived via: self in motorized wheelchair - patient is a [place] with multiple staff [facility] Consent captured for debridement per (Provider) and good until Special Instructions (for example, patient stands at the bedside for exam/dressing): bed Anticoagulant Therapy: Eliquis Living Situation (ie... Apartment, house, CORRECTION): [facility] Who lives with patient: facility Who will [...] BY PROVIDER: Anesthetic Used: N/A applied per museum preparator # 1 AND 2 Other procedure: Specimen [...] order date DME: [employer] , PH: [phone] [facility]: [facility] Emotional support N/A OR set-up N/A Diagnostic Sales Specialist N/A Incontinence needs N/A DISCHARGED in stable [...] be drawn PARI and results faxed to [facility] [phone] Stop smoking EDUCATION: The patient/family was instructed [...] had radiation therapy (more content not included)... [facility] 03-14-2025 Note Can you call [facility] and see if they are going to send disc to us? Or if patient still scheduled for procedure at [facility]. [facility] number: [phone] [facility] 03-14-2025 Telephone encounter Note Can you call [facility] and see if they are going to send disc to us? Or if patient still scheduled for procedure at [facility]. [facility] number: [phone] [facility] Work Phone: 03-14-2025 Miscellaneous Notes Can you call [facility] and see if they are going to send disc to us? Or if patient still scheduled for procedure at [facility]. [facility] number: [phone] Still need disc with images. Will need to review with Dr. Patel. Is it OK to get Pt scheduled for surgery? Please advise. Talked to staff from [facility] that patient would like to have procedure at [facility]. Requested that CD with images from [facility] be sent to [facility]rology. Staff will let Farideh know- she does scheduling/arranges procedures for residents. [facility] number: [phone] documented in this encounter [facility] 03-13-2025 Telephone encounter Note Still need disc with images. Will need to review with Dr. Patel. [facility] [employer] Work Phone: 03-13-2025 Miscellaneous Notes Still need disc with images. Will need to review with Dr. Patel. Is it OK to get Pt scheduled for surgery? Please advise. Talked to staff from [facility] that patient would like to have procedure at [facility]. Requested that CD with images from [facility] be sent to [facility]. Staff will let Farideh know- she does scheduling/arranges procedures for residents. [facility] number: [phone] documented in this encounter [facility] 03-13-2025 Telephone encounter Note Is it OK to get Pt scheduled for surgery? Please advise. [facility] 03-08-2025 Telephone encounter Note Patient is scheduled and half-way was notified. Information was faxed. [facility] 03-08-2025 Miscellaneous Notes Patient is scheduled and half-way was notified. Information was faxed. [facility] Needs outpt cysto, pyelograms, bilateral stent change vs removal in 2-3 weeks. documented in this encounter [facility] 03-07-2025 Note Talked to staff from [facility] that patient would like to have procedure at [facility]. Requested that CD with images from [facility] be sent to [facility]. Staff will let Farideh know- she does scheduling/arranges procedures for residents. [facility] number: [phone] [facility] 03-07-2025 Telephone encounter Note Talked to staff from [facility] that patient would like to have procedure at [facility]. Requested that CD with images from [facility] be sent to [facility] urology. Staff will let Farideh know- she does scheduling/arranges procedures for residents. [facility] number: [phone] [facility] 03-07-2025 Miscellaneous Notes Talked to staff from [facility] that patient would like to have procedure at [facility]. Requested that CD with images from [facility] be sent to [facility] urology. Staff will let Farideh know- she does scheduling/arranges procedures for residents. [facility] number: [phone] documented in this encounter [facility] 03-07-2025 History of Present illness Narrative Images from the original note were not included. JEO Burks CNP 03/07/2025 9:15 AM Urology Office Visit [facility] UROLOGY [address], [address] [facility] [id number] PATIENT NAME: Anmol Franco Given DATE OF [...] negative rods. Treated. Follow up outpatient with [facility] urology Patient is scheduled for surgery w Dr Maria on 03/20/25 however he prefers treatment at [facility] Will need images for surgery planning. Chronic [...] 8. Details above. 9. Follow-up as indicated. Pearl Fisherman: CECILIA Transcribe Date/Time: Feb 16 2025 10:02P Dictated by : CORBIN PERRY MD This examination was interpreted and the report reviewed and electronically signed by: CORBIN PERRY MD on Feb 16 2025 10:34PM EST Narrative * * *Final Report* * * DATE OF EXAM: Feb 16 2025 8:33PM [facility] 0530 - CT ABD/PEL W IVCON / [...] treatment. Follow up: No follow-ups on file. Yoana Solitario, PRESS BREAKER - AMPOULE FILLER AND SEALER [facility] Urology Please note that portions of this chart were dictated using Piictu electronic voice recognition software. It is possible [...] DECOMPRESSION performed by Opal Vigil MD at [facility] OR ORTHOPEDIC SURGERY Right removal of hardware ankle US PLACE URETAL STENT PERC PRE-EXIST TRACT S&I (HISTORICAL) Bilateral 04/14/2024 Dr. Patel/Bashir [3] No Known Allergies documented in this encounter [facility] 03-07-2025 Instructions JOE Burks CNP - 03/07/2025 9:00 AM EDT Need images from [facility] on disc brought to office for review in order for patient to have ureteral stent treatment at [facility]. Patient prefers [facility]. CT abdomen/pelvis 02/16/25 XR abdomen 02/16/25 and 02/17/25 Planning for ESWL vs laser litho w stent exchange. documented in this encounter [facility] 02-22-2025 Note HNO ID: [id number] Author: JESSICA CLEMENT RPh Service: Pharmacy Author [...] discharge medication list. Jessica Clement RPh Pager: [phone] 02/22/2025 3:26 PM Medication List START taking [...] 100 unit/mL solution Generic drug: insulin glargine-yfgn [facility] 02-22-2025 Note HNO ID: [id number] Author: ANDREA PALENCIA RN Service: Care Management Author Type: Registered Nurse Type: Care Mgt Progress Note Filed: 02/22/2025 15:26 Note Text: CARE MANAGEMENT DISCHARGE NOTE SERVICE DATE: February 22, 2025 SERVICE TIME: 3:24 PM Admission Date: 02/16/2025 LOS: 5 days Discharge Arrangement Discharge Arrangement: Extended Care Facility Services Arranged Provider Name: [facility] Caregiver Assessment Caregiver is ready, willing and able to meet the patient's needs as recommended by the inter-professional team: Yes Name of Caregiver: Facility staff Transportation Arrangements Transportation Arrangements: Ambulance Transportation Agency and Phone #:: [facility] ( [facility] ) [phone] / [phone] Date of Trip: 02/22/25 Time of Trip: 1999 Type of Service: BLS Non-emergency Is Patient Medicaid Pending?: No Was transportation financial coverage discussed with family?: Patient Sample Weaver Location: [facility] Destination: Return to [facility] Financial Care Management Responsibility: None Handoff Communication: Additional Information: Met with pt and he is agreeable to return to [facility]. Will D/C today at 8 pm via cot with [employer].. D/C paperwork sent electronically and RN to call N2N report. Pt stated he called his brother re: the D/C and time of return to [facility]. SIGNATURE: Andrea Palencia RN PATIENT NAME: Anmol Given DATE: February 22, 2025 TIME: 3:24 PM [facility] 02-22-2025 Note HNO ID: [id number] Author: ANDREA PALENCIA RN Service: Care Management Author Type: Registered Nurse Type: Care Mgt Progress Note Filed: 02/22/2025 15:22 Note Text: CARE MANAGEMENT PROGRESS NOTE SERVICE DATE: 02/22/2025 SERVICE TIME: 3:22 PM LOS: 5 days IMM Follow Up Copy Given: Yes Copy given to:: Patient Senior Java Developer Name/Relationship: Ilir Jonas Method: In Person Met with pt in room and explained the IMM, he states he understands. He is agreeable to D/C. SIGNATURE: Andrea Palencia RN PATIENT NAME: Anmol Given DATE: February 22, 2025 TIME: 3:22 PM [facility] 02-22-2025 Note HNO ID: [id number] Author: ANDREA PALENCIA RN Service: Care Management Author Type: Registered Nurse Type: Care Mgt Progress Note Filed: 02/22/2025 13:53 Note Text: CARE MANAGEMENT PROGRESS NOTE SERVICE DATE: 02/22/2025 SERVICE TIME: 1:53 PM LOS: 5 days IMM Follow Up Copy Given: Yes Copy given to:: Patient Senior Java Developer Senior Java Developer Name/Relationship: Ilir Jonas Method: By Phone SIGNATURE: Andrea Palencia RN PATIENT NAME: Anmol Given DATE: February 22, 2025 TIME: 1:53 PM [facility] 02-21-2025 Note HNO ID: [id number] Author: ANDREA PALENCIA RN Service: Care Management Author Type: Registered Nurse Type: Care Mgt Progress Note Filed: 02/21/2025 15:41 Note Text: CARE MANAGEMENT PROGRESS NOTE SERVICE DATE: 02/21/2025 SERVICE TIME: 3:39 PM LOS: 4 days D/C plan to return [facility] when medically ready. D/C packet created and will need cot transport when ready. SIGNATURE: Andrea Palencia RN PATIENT NAME: Anmol Given DATE: February 21, 2025 TIME: 3:39 PM [facility] 02-21-2025 Note HNO ID: [id number] Author: BRIA SHER MD Service: Hospital Medicine Author Type: Physician Type: Progress Notes Filed: 02/21/2025 13:23 Note Text: DEPARTMENT OF HOSPITAL MEDICINE Hospital Medicine/Primary Attending: Bria Sher MD NIGHT AND WEEKEND COVERAGE: After 7pm please page [phone] MEDICATIONS: Current Facility-Administered Medications Medication Dose Route [...] 02/18/25 0420 02/17/25 1009 02/17/25 0225 02/16/25 192 WBC 9.99 9.94 13.39* 14.96* 19.64* 10.29 [...] -- -- -- 1.2 BMP: Recent Labs 02/21/25 0454 02/20/25 0539 02/19/25 0419 02/18/25 0420 02/17/25 0225 02/16/25 1922 GLUC 162* 90 115* 177* 225* 131* [...] NTND, bowel sounds (more content not included)... [facility] 02-20-2025 Note HNO ID: [id number] Author: YOANA OROSCO, LIBRADO Service: ? Author Type: Registered Nurse Type: Nursing Progress Note Filed: 02/20/2025 18:07 Note Text: Other: Report called to [phone] RN. [facility] 02-20-2025 Note HNO ID: [id number] Author: GAYLE SCOTT MD Service: Infectious Disease [...] to urology. 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 Spinal cord injury residing at [facility], presented to [facility] 02/16/2025 for unresponsiveness when normally alert [...] that although she was not at the half-way she was called and told he was [...] PRN Or d (more content not included)... [facility] 02-20-2025 Note HNO ID: [id number] Author: PENNY VILLASEÑOR RN Service: Care Management Author Type: Registered Nurse Type: Care Mgt Progress Note Filed: 02/20/2025 16:13 Note Text: CARE MANAGEMENT PROGRESS NOTE SERVICE DATE: 02/20/2025 SERVICE TIME: 4:11 PM LOS: 3 days Needs Prior to Discharge: Discharge Transportation DC plan: [facility]. Pt is LTC and a bed hold. Updates to facility. Met with pt and provided update. Pt agreeable to return. SIGNATURE: Penny Villaseñor RN PATIENT NAME: Anmol Given DATE: February 20, 2025 TIME: 4:11 PM [facility] 02-20-2025 Note HNO ID: [id number] Author: ELIZABETH SOLER MD Service: Critical Care Author Type: Physician Type: Progress Notes Filed: 02/20/2025 13:05 Note Text: [facility] STAFF PHYSICIAN NOTE OF PERSONAL INVOLVEMENT IN CARE I have reviewed the documentation by the resident/ AALIYAH and I personally participated in the thomas components. I have discussed the case and management of the patient's care. The following comments revise or confirm relevant thomas components of the note. 64 y/o M with extensive medical hx who presented from half-way for AMS. In the ED, was obtunded [...] improves Urology input appreciated, follow up at [facility] urology Remains off of amiodarone, start low-dose [...] [facility] TIME of SERVICE: 8:32 AM [facility] 02-20-2025 Note HNO ID: [id number] Author: ELIZABETH SOLER MD Service: Critical Care [...] hematuria The patient initially presented to the [facility] ED on February 16, 2025 after being found unresponsive at his longterm facility. MICU was consulted for septic shock, [...] recommended patient to follow-up with urology at [facility]. Patient was extubated on 02/17 successfully. [...] Labs 02/19/25 0419 02/18/25 0420 02/17/25 1009 02/17/25 0225 02/16/25 1922 WBC 9.94 13.39* 14.96* 19.64* 10.29 [...] Labs 02/20/25 0539 02/19/25 0419 02/18/25 0420 02/17/25 0225 02/16/25 1922 GLUC 90 115* 177* 225* 131* [...] Value Units Date/Time Respiratory Culture and Stain [[id number]] (Abnormal) (Susceptibility) Collected: 02/17/25 1010 Order Status: Completed Specimen: Sputum Updated: 02/20/25 0755 Culture, Respiratory Few Normal respiratory gosia present Rare Methicillin-RESISTANT Staphylococcus aureus (MRSA) Gram Stain Few Mixed oral gosia Rare Polymorphonuclear leukocytes Few Epithelial cells Narrative: No Pseudomonas aeruginosa isolated. Susceptibility Methicillin-RESISTANT Staphylococcus aureus (MRSA) MINIMUM INHIBITORY CONCENTRATION ([place]) Clindamycin Susceptible [1] Erythromycin Resistant Gentamicin Susceptible Linezolid Susceptible Oxacillin Resistant [2] Rifampin Susceptible [3] Tetracycline Resistant Trimeth sulfameth Resistant Vancomycin S (more content not included)... [facility] 02-19-2025 Note HNO ID: [id number] Author: GAYLE SCOTT MD Service: Infectious Disease Author Type: Physician Type: Plan of Care Filed: 02/19/2025 18:36 Note Text: ID Continuing meropenem due to multiple gram-negative's and Enterococcus faecalis in blood and urine culture Gayle Scott MD 02/19/2025 6:36 PM pgr [phone] [facility] 02-19-2025 Telephone encounter Note Needs outpt cysto, pyelograms, bilateral stent change vs removal in 2-3 weeks. [facility] Work Phone: 02-19-2025 Note HNO ID: [id number] Author: RADHA GRAHAM [facility] Service: Pharmacy Author Type: Pharmacist Type: Plan [...] if inpatient anticoagulation education is needed. Radha Graham, [facility] 02-19-2025 Note HNO ID: [id number] Author: ANMOL HERBERT MD Service: Urology Author Type: Resident Type: Progress Notes Filed: 02/19/2025 14:57 Note Text: Attestation signed by Anmol Herbert MD at 02/19/2025 2:57 PM Discussed with the resident and agree with resident's findings and plan as documented in the resident's note. Will arrange stent removal/change as oupt. Anmol Herbert MD UROLOGY PROGRESS NOTE PATIENT NAME: Anmol Given DATE OF : 1960 ADMISSION DATE: 02/16/2025 [...] was discussed with the patient or authorized major account representative. The patient or authorized major account representative has agreed to proceed with the sensitive examination. Labs and Imaging Studies LABS: BMP: Recent Labs 02/19/2541802/18/2541902/17/25224 NA 137 135* 132* K 3.7 3.9 4.7 CHLOR 106 104 104 CO2 21* 20* 17* BUN 36* 37* 34* CREAT 0.64* 1.04 1.90* GLUC 115* 177* 225* CBC: Recent Labs 02/19/2541802/18/25 0420 02/17/25 1009 02/17/255 02/16/25 1922 WBC 9.94 13.39* 14.96* 19.64* 10.29 HB 11.1* 11.3* 13.1 11.9* 11.6* HCT 32.5* 33.9* 41.4 36.6* 34.9* PLT 87* 69* 64* 93* 108* Urinalysis: Specific Xenia, Ur Date Value Ref Range Status 02/16/2025 [...] male with chronic bilateral stents placed at [facility] in MAY 2024 - no acute surgical intervention - remains off levo - daily labs; cr stable - plan to follow up with [facility] urology for stent removal unless becomes unstable / concern for removal needed sooner, then we would discuss OR inpatient - appreciate ICU care - urology to sign off at this time - please reach out with any questions or concerns Tiffanie Baltazar DO Urology PGY-1 February 19, 2025 10:11 AM [facility] 02-19-2025 Note HNO ID: [id number] Author: ELIZABETH SOLER MD Service: Critical Care Author Type: Physician Type: Progress Notes Filed: 02/19/2025 11:52 Note Text: MICU PROGRESS NOTE PATIENT NAME: Anmol Reynolds REASON FOR ADMISSION:Septic shock LOS: 2 Subjective HPI Anmol Reynolds is a 64 [...] hematuria The patient initially presented to the [facility] ED on February 16, 2025 after being found unresponsive at his longterm facility. MICU was consulted for septic shock, [...] recommended patient to follow-up with urology at [facility]. Patient was extubated on 02/17 successfully. [...] this admission. Pt can follow up with [facility] Urology Infectious disease: Discontinue vancomycin and continue [...] Labs 02/19/25 0419 02/18/25 0420 02/17/25 1009 02/17/25 0225 02/16/25 1922 WBC 9.94 13.39* 14.96* 19.64* 10.29 [...] -- -- 4.0 COAG: Recent Labs 02/19/25 0419 02/18/25201102/18/25 1300 02/18/25 0643 02/18/25 0021 02/17/25 1728 02/17/25 1644 02/17/25 1009 APTT 71.1* 40.2* 35.5* 33.2* 51.0* 38.7* EXTREMELY ABNORMAL RESULT. No clot detected at 320 seconds. Refer to anticoagulation nomogram for further actions.* 36.7* INR -- -- -- -- -- -- -- 1.2 CMP: Recent Labs 02/19/2541802/18/25 0420 02/17/25 0225 02/16/25 1922 GLUC 115* 177* 225* 131* NA 137 [...] Value Units Date/Time Respiratory Culture and Stain [[id number]] (Abnormal) Collected: 02/17/25 1010 Order Status: Completed Specimen: Sputum Updated: 02/18/25 0916 Culture, Respiratory Few Normal respiratory gosia present Gram Stain Few Mixed oral gosia Rare Polymorphonuclear leukocytes Few Epithelial cells Blood Culture [[id number]] (Abnormal) Collected: 02/16/25 1928 Order Status: Completed Specimen: Blood Updated: 02/18/25 1603 Culture, Blood Culture report of Enterococcus faecalis Comment: Cephalosporins, clindamycin, and TMP-SMX are not effective for the treatment of enterococcal (more content not included)... [facility] 02-19-2025 Note HNO ID: [id number] Author: NOTE, INTERFACE, ? Service: ? Author Type: ? Type: Progress Notes Filed: 02/19/2025 02:55 Note Text: Epic Scheduled Downtime: 02/19/2025 1:00:00 AM to 02/19/2025 2:37:00 AM [facility] 02-18-2025 Note HNO ID: [id number] Author: GAYLE SCOTT MD Service: Infectious Disease [...] and UTI. Spinal cord injury residing at [facility], presented to [facility] 02/16/2025 for unresponsiveness when normally alert [...] that although she was not at the half-way she was called and told he was [...] 1 mg inje (more content not included)... [facility] 02-18-2025 Note HNO ID: [id number] Author: ANMOL HERBERT MD Service: Urology Author [...] Value 02/18/2025 69 11/25/2021 275 Urinalysis: Specific Xenia, Ur Date Value Ref Range Status 02/16/2025 [...] male with chronic bilateral stents placed at [facility] in MAY 2024 PLAN: - No acute intervention - Given pt improvement on current regimen, no plans for surgery this admission - Pt can follow up with [facility] Urology - Appreciate ICU care Jose Nesbitt MD PGY1 Urology 12:22 PM 02/18/25 [facility] 02-18-2025 Note HNO ID: [id number] Author: JON MCDONALD MD Service: Critical Care Author Type: Physician Type: Progress Notes Filed: 02/18/2025 13:06 Note Text: [facility] STAFF PHYSICIAN NOTE OF PERSONAL INVOLVEMENT IN [...] with extensive medical hx who presented from half-way for AMS. In the ED, was obtunded and intubated. Found to be hypotensive and tachycardic, eventually requiring vasopressors. Workup revealed MK, UTI, and multiple other findings. CT with multiple findings including coiling of stents and bibasilar lung opacities. MICU consulted septic shock. #Septic shock #Polymicrobial bacteremia #UTI in setting of neurogenic bladder/chronic santana #Acute hypoxemic respiratory failure s/p extubation 02/17 #A.Fib w/ RVR #Acute toxic metabolic encephalopathy - [...] prophylaxis - Heparin gtt in light of A.Fib - Ongoing ICU supportive care - Code [...] designee ICU Dispositio (more content not included)... [facility] 02-18-2025 Note HNO ID: [id number] Author: JON MCDONALD MD Service: Critical Care [...] intubation. The patient initially presented to the [facility] ED on February 16, 2025 after being found unresponsive at his longterm facility, last known well 1700 today INTERVAL [...] this admission. Pt can follow up with [facility] Urology Infectious disease: Discontinue vancomycin and continue [...] CBC: Recent Labs 02/18/25 0420 02/17/25 1009 02/17/25 0225 02/16/25 1922 WBC 13.39* 14.96* 19.64* 10.29 HB 11.3* [...] -- 1.2 CMP: Recent Labs 02/18/25 0420 02/17/25 0225 02/16/251921 GLUC 177* 225* 131* NA 135* 132* [...] Value Units Date/Time Respiratory Culture and Stain [[id number]] (Abnormal) Collected: 02/17/25 1010 Order Status: Completed Specimen: Sputum Updated: 02/17/25 1328 Gram Stain Few Mixed oral gosia Rare Polymorphonuclear leukocytes Few Epithelial cells Blood Culture [[id number]] (Abnormal) Collected: 02/16/251927 Order Status: Completed Specimen: Blood Updated: 02/17/25 1049 Gram Stain Gram positive cocci in pairs and chains Gram negative bacilli Blood Culture [[id number]] (Abnormal) Collected: 02/16/25 1922 Order Status: Completed Specimen: Blood Updated: 02/17/25 [...] with IV c (more content not included)... [facility] 02-18-2025 Note HNO ID: [id number] Author: NOTE, INTERFACE, ? Service: ? Author Type: ? Type: Progress Notes Filed: 02/18/2025 03:47 Note Text: Epic Scheduled Downtime: 02/18/2025 1:00:00 AM to 02/18/2025 3:39:00 AM [facility] 02-17-2025 Note HNO ID: [id number] Author: ELLIOT GOMEZ, LIBRADO Service: Care Management Author Type: Registered Nurse Type: Care Mgt Initial Assessment Filed: 02/17/2025 13:50 Note Text: CARE MANAGEMENT: ASSESSMENT AND DISCHARGE PLAN SERVICE DATE: February 17, 2025 SERVICE TIME: 1343 PCP: No primary care provider on file. Primary Contact: Extended Emergency Contact Information Primary Emergency Contact: SUMI REYNOLDS Mobile Relation: Daughter Secondary Emergency Contact: Ronald Reynolds Address: [address] [place] [address] Mobile Relation: Brother Admission Status: Inpatient Insurance Provider: ITALIA GARBER MEDICARE Discharge Planning requested by: Per Department Practice Potential Transition Plans Detention Facility/Intermediate Care Facility Advance Directives Current Advance Directive: None Post Office Markup Clerk Attempted to Assist with AD Completion: Yes Action: Education Provided Current Living Arrangements and Support Lives with: Other person(s) Type of Residence: Extended Care Facility Does the patient have to climb stairs at home?: No Care Facility Name: [facility] Support: Children, Other: See Comment ECF staff How do you manage to accomplish the following: Dependent: Ambulation, Bathe/Shower, Meals/Meal Prep, Dress, Going to the bathroom, Medication Management, Transportation to appointments/community Current Services/Equipment Current Post-Acute Service(s): DME Current DME Type: Wheelchair-electric, [place] Lift Discharge Planning Patient Goal(s): General wellness [place] of Choice Explained: [place] of [place] Given: No Reason Not Given: No placements necessary Are you interested in bedside delivery of your medications? No Discharge Planning Participant(s): Patient, Children Patient/Family Comments: Caregiver Assessment: Caregiver is ready, willing and able to meet the patient's needs as recommended by the inter-professional team: Yes Name of Caregiver: [facility] Transport at Discharge: Transportation Arrangements: Ambulance Transportation Agency and Phone #:: [facility] ( [facility] ) [phone] / [phone] Needs Prior to Discharge: Needs Prior to Discharge: To Be Determined, OT/PT Evaluation, Discharge Transportation Post-Acute Discharge Plan: Met with patient and daughter Sumi in room. Extubated this morning. MOTOR EQUIPMENT CAPTAIN patient admitted from [facility] for septic shock. Patient is LTC and a bed hold at the facility. Plan is to return to [facility] at discharge per daughter. Recommend therapy evals when appropriate. Patient will need precert if skilled is needed on return. Patient will need cot transport at discharge. CM will continue to follow. SIGNATURE: Elliot Gomez RN PATIENT NAME: Anmol Given DATE: February 17, 2025 TIME: 1:43 PM [facility] 02-17-2025 Note HNO ID: [id number] Author: JESSICA CLEMENT RPh Service: Pharmacy Author Type: Pharmacist Type: Plan of Care Filed: 02/21/2025 09:54 Note Text: PHARMACY MEDICATION REVIEW Patient Name: Anmol Reynolds : 1960 The following medications were updated within the [employer]OR [employer]QU[employer]TAIN medication list: Medications ADDED to [employer]OR [employer]MENT [employer]TAIN medication list aspirin, enteric coated (ASPIRIN, ENTERIC [...] hours as needed (heartburn). Medications CHANGED on [employer] E[employer]MENT [employer]TAIN medication list Medications REMOVED from [employer]TAIN medication list alogliptin benzoate (ALOGLIPTIN ORAL) Adjust [...] E-Cancel Additional comments: Verified medication information with [facility]. Removed medications listed above from med list to match [facility] med list. Added medications listed above to med list to match [facility] med list. Required follow up actions for nursing: None The below information represents the best possible medication history: Yes Medication history completed by: Data Systems Manager: Rosa Brice (Engine Manager) Source of history: prison/Other [facility] and [facility] records Medication nonadherence identified: No barriers noted Reconciliation completed: Yes Completed by: TREV All [employer]OR EQUIPMENT CAPTAIN medications addressed by TREV Patient interested in Bedside Delivery Services or using OP Pharmacy at discharge? No Preferred outpatient pharmacy: [facility] Allergies: No Known Allergies Prior to [...] Inject subcutaneously thre (more content not included)... [facility] 02-17-2025 Note HNO ID: [id number] Author: JON MCDONALD MD Service: Critical Care Author Type: Physician Type: Progress Notes Filed: 02/17/2025 13:12 Note Text: [facility] STAFF PHYSICIAN NOTE OF PERSONAL INVOLVEMENT IN [...] with extensive medical hx who presented from half-way for AMS. In the ED, was obtunded [...] Prevention: Line Status: (more content not included)... [facility] 02-17-2025 Note HNO ID: [id number] Author: JON MCDONALD MD Service: Critical Care Author Type: Physician Type: Progress Notes Filed: 02/17/2025 13:55 Note Text: MICU PROGRESS NOTE PATIENT NAME: Anmol Reynolds REASON FOR ADMISSION:Septic shock LOS: 0 Subjective HPI Anmol Reynolds is a 64 [...] intubation. The patient initially presented to the [facility] ED on February 16, 2025 after being found unresponsive at his longterm facility, last known well 1700 today INTERVAL [...] MG -- 1.6* URINALYSIS: Recent Labs 02/16/25 2107 [...] pathology LV Ejection (more content not included)... [facility] 02-16-2025 Note HNO ID: [id number] Author: ROZ MIKE RN Service: ? Author Type: Registered Nurse Type: ED Notes Filed: 02/16/2025 19:48 Note Text: Restraints applied at this time, bilateral upper extremity softs. [facility] 01-31-2025 Instructions Rj Brooks RN - 01/31/2025 2:01 PM EDT WOUND CARE INSTRUCTIONS- Anmol Gail Wound location: sacrum & left ischium [facility] -Gather supplies -Place down a clean work [...] the wound base. - Cover with 4x4 [place] SAP. - Change your dressing daily and [...] following changes to the Wound Center at [phone] or go to the Emergency Department: Fever or chills Increased drainage Green or yellow drainage Foul odor Increased pain Hardness around the wound Redness, warmth or swelling of the surrounding tissue Color change to the wound When contacting the wound center at the ([phone]): Leave a message that includes your full [...] Blood work ordered please go to any [facility] lab. - Please send patient with medication list at next appointment. - Continue aggressive nutritional support to assist wound healing - CAT Scans & MRI need to be scheduled through [facility]. Call [phone].(If applicable) Milad Goodson MD/zmina/fm documented in this encounter [facility] 01-31-2025 Note HNO ID: [id number] Author: MILAD GOODSON MD Service: ? Author [...] negative unless stat (more content not included)... [facility] 01-31-2025 History of Present illness Narrative [...] Chronic pain of right ankle 11/26/2021 Diabetes ([facility]) Elevated CA 19-9 level 08/21/2021 Epidural abscess (HCC) 01/04/2022 MRSA bacteremia 11/27/2021 Neuropathy Nicotine use disorder, F17.2 06/14/2019 Pilonidal cyst with abscess 12/31/2020 Pilonidal cyst without abscess 05/29/2020 Pyelonephritis 11/27/2021 Sciatica Severe protein-calorie malnutrition (HCC) 09/04/2021 Type 2 diabetes mellitus with hyperglycemia, with long-term current use of insulin ([facility]) 01/18/2021 Ureteral stone 11/25/2021 UTI (urinary tract [...] in motorized wheelchair Home Care Company/Nursing Facility: [facility] Consent captured for debridement per (Provider) and good until Special Instructions (for example, patient stands at the bedside for exam/dressing): bed Anticoagulant Therapy: aspirin Living Situation (ie... Apartment, house, [place]AN[place]): [facility] [...] BY PROVIDER: Anesthetic Used: N/A applied per museum preparator # 1 & 2 Other procedure: Specimen [...] alginate AG Covered and secured with: 4x4 [place] SAP Other: COMPRESSION: N/A DME: Prism order date __ DME: [employer] , PH: [phone] SPECIAL NEEDS: Coordination of care N/A Emotional support N/A OR set-up N/A Diagnostic Sales Specialist N/A Incontinence needs N/A DISCHARGED in stable condition to: facility in motorized wheelchair PLAN/ORDERS: - Return to the Wound Center to see Milad Goodson MD in 6 weeks. - Blood work ordered please go to any [facility] lab. - Please send patient with medication list at next appointment. - Continue aggressive nutritional support to assist wound healing - CAT Scans & MRI need to be scheduled through [facility]. Call [phone].(If applicable) EDUCATION: The patient/family was instructed how [...] Yes to ALL questions above, [facility] 5. Has the patient been diagnosed [...] to ANY of questions 5-9, [facility] Rj Brooks RN/fm documented in this encounter [facility] 01-31-2025 Note HNO ID: [id number] Author: RJ BROOKS RN Service: ? Author Type: Registered Nurse Type: Progress Notes Filed: 01/31/2025 14:59 Note Text: Nursing Documentation Pertinent Medical History: paraplegia, MRSA, osteomyelitis, UTI, DM2, neuropathy, pyelonephritis, Wound Etiology according to patient: sacrum wound has had for four years per pt Patient arrived via: self in motorized wheelchair Home Care Company/Nursing Facility: [facility] Consent captured for debridement per (Provider) and good until Special Instructions (for example, patient stands at the bedside for exam/dressing): bed Anticoagulant Therapy: aspirin Living Situation (ie... Apartment, house, CORRECTION): [facility] Who lives with patient: facility Who will [...] BY PROVIDER: Anesthetic Used: N/A applied per museum preparator # 1 AND 2 Other procedure: Specimen [...] alginate AG Covered and secured with: 4x4 [place] SAP Other: COMPRESSION: N/A DME: Prism order date __ DME: [employer] , PH: [phone] SPECIAL NEEDS: Coordination of care N/A Emotional support N/A OR set-up N/A Diagnostic Sales Specialist N/A Incontinence needs N/A DISCHARGED in stable condition to: facility in motorized wheelchair PLAN/ORDERS: - Return to the Wound Center to see Milad Goodson MD in 6 weeks. - Blood work ordered please go to any [facility] lab. - Please send patient with medication list at next appointment. - Continue aggressive nutritional support to assist wound healing - CAT Scans AND MRI need to be scheduled through [facility]. Call [phone].(If applicable) EDUCATION: The patient/family was instructed how [...] 5-9, consult the [facility] Rj Brooks RN/[facility] 01-04-2025 History of Present illness [...] SIGNATURE: Jovany Johnston RN PATIENT NAME: Anmol Reynolds DATE: January 04, 2025 TIME: 8:46 AM [...] PATIENT PRESENTS WITH AN IMPLANTABLE OR ATTACHED PLEATING SUPERVISOR: No ALLERGIES: Reviewed and unchanged CONTRAST ALLERGY: NO. EXAM: MRI - CONTRAST TYPE: GROUP II PERIPHERAL IV DATA: DIANA RN IV RADIOLOGY DEPARTMENT: MR; Exam(s) Completed: Spine: Sacrum/Coccyx SIGNATURE: LIZ Roth PATIENT NAME: Anmol Given DATE: January 04, 2025 TIME: 8:49 AM documented in this encounter [facility] 01-04-2025 Note HNO ID: [id number] Author: AMBROSIO BAUGH RT(Ector) Service: Radiology Author Type: Technologist Type: Progress [...] PATIENT PRESENTS WITH AN IMPLANTABLE OR ATTACHED PLEATING SUPERVISOR: No ALLERGIES: Reviewed and unchanged CONTRAST ALLERGY: NO. EXAM: MRI - CONTRAST TYPE: GROUP II PERIPHERAL IV DATA: RAD RN IV RADIOLOGY DEPARTMENT: MR; Exam(s) Completed: Spine: Sacrum/Coccyx SIGNATURE: LIZ Roth PATIENT NAME: Anmol Given DATE: January 04, 2025 TIME: 8:49 AM [facility] 01-04-2025 Note HNO ID: [id number] Author: JOVANY JOHNSTON RN Service: Radiology Author [...] SIGNATURE: Jovany Johnston RN PATIENT NAME: Anmol Reynolds DATE: January 04, 2025 TIME: 8:46 AM [facility] 11-08-2024 History of Present illness Narrative [...] (around 02/05/2025) for in-person visit with [facility]. Faisal Simeon DO 11/08/2024 documented in this encounter [facility] 10-27-2024 Telephone encounter Note Returned call unable to leave message doug was out for the day [facility] 10-27-2024 Miscellaneous Notes Returned call unable to leave message doug was out for the day Name of caller: Doug Contact phone number: [phone] Relationship to Patient: Tierra Delvalle Provider: Dr. Gillette Practice: [facility] Chief Complaint/Reason for Call: Doug [...] pain management//no showed on 08.04.24// Doug from [facility] made appt//medicare medicaid Office Name: [facility] Medication Refills need, if any: n/a Medication Name: n/a documented in this encounter [facility] 10-26-2024 Telephone encounter Note Name of caller: Doug Contact phone number: [phone] Relationship to Patient: [facility] Provider: Dr. Gillette Practice: [facility] Chief Complaint/Reason for Call: Doug states she missed a call from the office to schedule the patient and would like a return call. Please review. Best time of day caller can be reached: any Patient advised that office/PCP has 24-48 business hours to return their call: Yes [facility] 10-26-2024 Telephone encounter Note Called and left message to call to reschedule appointment [facility] 10-25-2024 Telephone encounter Note Name of Caller: Doug Contact Reason for Appointment: Please call to r/s cx appt for 10.26.24 due to weather conditions. Follow up for pain management//no showed on 08.04.24// Doug from [facility] made appt//medicare medicaid Office Name: [facility] Medication Refills need, if any: n/a Medication Name: n/a [facility] 09-30-2024 Instructions Faisal Simeon DO - 09/30/2024 1:28 PM EST Completed UDS. Inserted 18Fr 10cc santana Call to schedule appt with Urology Dr Jorge Patel MD (Surgeon) [address] [place] [address] Urology [place] [phone] Check renal CT scan given recurrent blood [...] burning on urination, call the office at [phone] Thursday through Thursday 8:00 AM to 4:30 PM. For emergencies, go the Emergency Room. If you do not already have a follow up appointment scheduled with your physician, call the office at [phone] to schedule one. documented in this encounter [facility] 09-30-2024 History of Present illness Narrative [...] then PVR was assessed by straight catheterization. 7-Czech urodynamic catheter was placed in the bladder [...] oral post procedural antibiotic was prescribed to [facility] pharmacy. Overall the procedure was well tolerated [...] Void Residual (mL): 325 mL Storage phase (05039 or 53304/67943) Rate of Fluid infusion, First sensation (Normal [...] was observed only with valsalva Voiding Phase (40374/02274) Maximum flow, Pdet at maximum flow, Volume voided: See scanned report in Media EMG Anal/urinary muscle study patch (70574 -18) EMG inconclusive (connection was lost during study). [...] INTRA-ABDOMINAL VOIDING PRESSURE INSERT CATHETER (SANTANA) SIMPLE [63384] COMPLEX CYSTOMETROGRAM CT RENAL STONE nitrofurantoin monohydrate macrocrystal (Macrobid) 100 MG capsule Patient Instructions Completed UDS. Inserted 18Fr 10cc santana Call to schedule appt with Urology Dr Jorge Patel MD (Surgeon) [address] [facility] [address] [place] [address] scan given recurrent blood [...] burning on urination, call the office at [phone] Thursday through Thursday 8:00 AM to 4:30 PM. For emergencies, go the Emergency Room. If you do not already have a follow up appointment scheduled with your physician, call the office at [phone] to schedule one. Catheters: Continue indwelling catheterization Fluid intake: maintaining hydration Medications: contrinue flomax for stent/stones Other: See above Return to Clinic: Follow up in about 4 weeks (around 10/28/2024) for video visit (telehealth). Faisal Simeon DO 09/30/2024 documented in this encounter [facility] 08-22-2024 History of Present illness Narrative [...] Resource Strain: Low Risk (04/24/2023) Received from [facility] Overall Financial Resource Strain (CARDIA) Difficulty of Paying Living Expenses: Not hard at all Food Insecurity: No Food Insecurity (05/18/2024) Received from [facility] Hunger Vital Sign Worried About Running Out of Food in the Last Year: Never true Ran Out of Food in the Last Year: Never true Transportation Needs: No Transportation Needs (05/18/2024) Received from [facility] PRAPARE - Transportation Lack of Transportation (Medical): No Lack of Transportation (Non-Medical): No Intimate Partner Violence: Not At Risk (05/18/2024) Received from [facility] Humiliation, Afraid, Rape, and Kick questionnaire Fear [...] Forteo or Tymlos. He is amenable. [facility] to get labs ordered Will check BMP, Vit D, PTH, SPEP Plan for Forteo if labs ok. Follow up 3 months or sooner PRN Giuliano Shultz DO documented in this encounter [facility] 08-12-2024 Telephone encounter Note Spoke with [facility] at Care Facility where pt resides and given the date and time of SYSTEM SAFETY ENGINEER video visit with Dr. Shultz at 8:20 am on 08/22/24. This information will be relayed to pt. [facility] 08-12-2024 Miscellaneous Notes Spoke with [facility] at Care Facility where pt resides and given the date and time of SYSTEM SAFETY ENGINEER video visit with Dr. Shultz at 8:20 am on 08/22/24. This information will be relayed to pt. documented in this encounter [facility] 08-01-2024 Note Addended by: FAISAL SIMEON on: 08/01/2024 02:57 PM Modules accepted: Level of Service [facility] 08-01-2024 Note Addended by: FAISAL SIMEON on: 08/01/2024 02:57 PM Modules accepted: Level of Service [facility] 08-01-2024 Miscellaneous Notes Addended by: FAISAL SIMEON on: 08/01/2024 02:57 PM Modules accepted: Level of Service documented in this encounter [facility] 08-01-2024 Instructions Howard Dhaliwal MD - 08/01/2024 9:30 AM EDT -Continue PT/OT -Please follow your appoitment with pain team and rheumatology -You are scheduled for bladder study on 09/30/24 -continue scheduled bowel care daily documented in this encounter [facility] 07-31-2024 History of Present illness Narrative [...] following spinal surgery ~2 yrs ago in [place] . In 2019, pt had his first back surgery performed by [facility] which was an interbody fusion. 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 At that point, the hospital took the hardware out and did not replace it with the goal of treating the infection. 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 After the infection was treated, [facility] extended his fusion, decompressed the back, and replaced all hardware. At that time he lost all motor and sensation to his lower extremities. He was independent uptill december 2021 till his last spine surgery two year ago.Since 2021 he is in half-way and he changes 5 half-way so far. Currently SNF in [facility]. Last seen on 06/13/24 in clinic and recommendations was: -Continue PT/OT -Bowel care: schedule bowel care once/day (either after breakfast or dinner) - using suppository and manual stimulation over commode chair will be more helpful than over bed . - Continue skin care - Follow [facility] service consult( we requested today ) [...] healing- being followed with wound care at half-way. -Continued PT/OT in half-way -Spine team see him after MRI spine [...] to display Other SOCIAL Home situation: NA NORMALIZER/RN: Currently in prison - [facility] DME: Power wheelchair, manual wheelchair Income/BWC: Social [...] Faisal Simeon DO documented in this encounter [facility] 07-27-[address] Grady murphy to Rheumatology. Spoke with patient's brother today who referred me to call [facility], where patient resides, to see about arranging transportation for patient to a Rheumatology appt (not scheduled yet). I spoke with a healthcare worker at [facility] and let her know we can also schedule a video visit with Dr. Hare. She will call me back after discussing with patient. [facility] Telephone encounter Note Referral from Dr. Mejia to Rheumatology. Spoke with patient's brother today who referred me to call [facility], where patient resides, to see about arranging transportation for patient to a Rheumatology appt (not scheduled yet). I spoke with a healthcare worker at [facility] and let her know we can also schedule a video visit with Dr. Hare. She will call me back after discussing with patient. [facility] 07-27-2024 Miscellaneous Notes Referral from Dr. Mejia to Rheumatology. Spoke with patient's brother today who referred me to call [facility], where patient resides, to see about arranging transportation for patient to a Rheumatology appt (not scheduled yet). I spoke with a healthcare worker at [facility] and let her know we can also schedule a video visit with Dr. Hare. She will call me back after discussing with patient. documented in this encounter [facility] 07-13-[address] Mejia referral to Rheumatology for Osteoporosis. Spoke with brother who transports pt to and from [facility] since pt resides in [place]. Brother is available on Fridays to transport pt to [facility]. Will call him back with options. [facility]24 Telephone encounter Note This is a Dr Mejia referral to Rheumatology for Osteoporosis. Spoke with brother who transports pt to and from appts since pt resides in extended care facility. Brother is available on Fridays to transport pt to appts. Will call him back with options. [facility] 07-13-2024 Miscellaneous Notes This is a Dr Mejia referral to Rheumatology for Osteoporosis. Spoke with brother who transports pt to and from appts since pt resides in extended care facility. Brother is available on Fridays to transport pt to appts. Will call him back with options. documented in this encounter [facility] 06-16-2024 Note Addended by: FAISAL SIMEON on: 06/16/2024 09:13 PM Modules accepted: Level of Service [facility] 06-16-2024 Miscellaneous Notes Addended by: FAISAL SIMEON on: 06/16/2024 09:13 PM Modules accepted: Level of Service documented in this encounter [facility] 06-16-2024 Telephone encounter Note Scheduled appointment [facility] 06-16-2024 Miscellaneous Notes Scheduled appointment Dogu is calling in again wanting to rescheduled they can be reached at the office anytime before 3pm. Please advise and thank you LM for Doug to call the office to discuss the pt Name of caller: Doug Contact phone number: [phone] Relationship to Patient: [facility] Provider: [facility] Practice: pain management Chief Complaint/Reason for Call: doug is calling in wanting to speak to the main office. Please advise and thank you Best time of day caller can be reached: any Patient advised that office/PCP has 24-48 business hours to return their call: Yes documented in this encounter [facility] 06-16-2024 Telephone encounter Note Doug is calling in again wanting to rescheduled they can be reached at the office anytime before 3pm. Please advise and thank you [facility] 06-15-2024 Telephone encounter Note LM for Doug to call the office to discuss the pt [facility] 06-15-2024 Telephone encounter Note Name of caller: Duog Contact phone number: [phone] Relationship to Patient: [facility] Provider: [facility] Practice: pain management Chief Complaint/Reason for Call: doug is calling in wanting to speak to the main office. Please advise and thank you Best time of day caller can be reached: any Patient advised that office/PCP has 24-48 business hours to return their call: Yes [facility] 06-14-2024 Telephone encounter Note RTC to pt, left voice mail. Vladimir Asher [facility] Graphic Technician [phone] [facility] 06-14-2024 Miscellaneous Notes RTC to pt, left voice mail. Vladimir Asher [facility] Graphic Technician [phone] documented in this encounter [facility] 06-13-2024 Instructions Howard Dhaliwal MD - 06/13/2024 12:29 PM EDT -Continue PT/OT -Bowel care: schedule bowel care once/day (either after breakfast or dinner) - using suppository and manual stimulation over commode chair will be more helpful than over bed . - Continue skin care - Follow [facility] service consult( we requested today ) for benefits eligibility - Bladder: We ordered today Urodynamic study for your bladder evaluation (to see your bladder status post spinal cord injury) documented in this encounter [facility] 06-13-2024 Instructions Howard Dhaliwal MD - 06/13/2024 12:29 PM EDT -Continue PT/OT -Bowel care: schedule bowel care once/day (either after breakfast or dinner) - using suppository and manual stimulation over commode chair will be more helpful than over bed . - Continue skin care - Follow [facility] service consult( we requested today ) for benefits eligibility - Bladder: We ordered today Urodynamic study for your bladder evaluation (to see your bladder status post spinal cord injury) documented in this encounter [facility] 06-13-2024 History of Present illness Narrative Patient was identified by name and date of . Evelio Grey documented in this encounter [facility] 06-13-2024 History of Present illness Narrative [...] following spinal surgery ~2 yrs ago in [place] . In 2019, pt had his first back surgery performed by [facility] which was an interbody fusion. 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 At that point, the hospital took the hardware out and did not replace it with the goal of treating the infection. 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 After the infection was treated, [facility] extended his fusion, decompressed the back, and replaced all hardware. At that time he lost all motor and sensation to his lower extremities. He was independent uptill december 2021 till his last spine surgery two year ago Patient was accompanied by brother . The patient gave permission to discuss their medical information, including PHI, in their presence. Since 2021 he is in half-way and he changes 5 half-way so far. Currently SNF in [facility]. 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 - Continue skin care - Follow [facility] service consult( we requested today ) [...] Faisal Simeon DO documented in this encounter [facility] 05-22-2024 Note Formatting of this n ote might be different from the original. Called [facility] dispatch, new ETA is around 1900. [facility] 05-22-2024 Note Formatting of this n ote might be different from the original. Called [employer] dispatch, new ETA is around 1900. [facility] 05-22-2024 Miscellaneous Notes Called [employer] dispatch, new ETA is around 1900. CARE COORDINATION DAILY NOTE/UPDATE Discharge Plan: [facility] This TCC was tasked to follow this patient through the weekend assisting with discharge planning. Chart was reviewed. Met with patient at bedside to confirm if he would like to return to [facility]. Patient agreeable to return. Messaged attending and infectious disease to see if patient is able to discharge today. Discharge order placed. Scheduled discharge transportation in [employer], product picker time confirmed for 05/22 at 1600. Bedside [...] determined. Current discharge plan is return to [facility]. Will return skilled only if needed, otherwise he can return under his medicaid benefit per careport message. TCC to continue to follow. Return Referral placed to [facility] via Careport per TCC request. Await review and response regarding ability to accept. TCC notified. Care Managment Initial Assessment Date: 05/19/2024 Patient Name: Anmol Reynolds : 1960 Patient Information Source of Information: Patient Cognition/Language: WFL - Within Functional Limits Permission given to speak with patient major account representative/caregiver as indicated: Yes Confirmation of Payer [...] No (n/a) Confirmed with: Living Arrangements Facility: [facility] Facility Name: [facility] Plan to Return: Yes Lives with: Alone, Other (Comment) (at [facility]) Support Systems: Children, Family members, Comments [...] ECF Discharge Planning Actions: Continue to follow, Detention Facility referral indicated [place] of choice: [place] of choice discussed (choice list not indicated; [...] ID consulted. Patient is a resident at [facility]. Patient confirmed plan for return. BEHAVIORAL CONSULTANT tasked to place return referral. Anticipate discharge [...] instructions Outcome: Progressing documented in this encounter [facility] 05-22-2024 Nurse Note Transport arranged for 1600. Belongings packed and paperwork finished. Carlos Montelongo update: 45 minutes. Elly Cormier RN [facility] 05-22-2024 Nurse Note Transport arranged for 1600. Belongings packed and paperwork finished. Carlos Montelongo update: 45 minutes. Elly Cormier RN Santana catheter leaking since last night. Dr. Mahajan paged via secure chat. Catheter to be replaced. Patient informed me that they use a 18 dutch santana at the half-way. A 16 dutch was previously in. Urology cart was ordered, and a 18 dutch santana was placed with 500 mL output. Larger balloon, filled with 25 mL. No leaking. Will continue to monitor. Elly Cormier RN documented in this encounter [facility] 05-22-2024 Nurse Note Santana catheter leaking since last night. Dr. Mahajan paged via secure chat. Catheter to be replaced. Patient informed me that they use a 18 dutch santana at the half-way. A 16 dutch was previously in. Urology cart was ordered, and a 18 dutch snatana was placed with 500 mL output. Larger balloon, filled with 25 mL. No leaking. Will continue to monitor. Elly Cormier RN [facility] 05-22-2024 Note Discharge Summary Anmol Franco Gail : 1960 ADMIT DATE: 05/17/2024 DISCHARGE DATE: [...] claudication Type 2 diabetes mellitus without complication ([facility]/HCC) (HCC) Urinary calculus, unspecified UTI (urinary tract [...] 4 8 5 LIVER PROFILE: Recent Labs 05/20/2460505/21/24 0336 05/22/24 0434 AST 23 24 25 [...] Continuous Continuous M (more content not included)... [facility] 05-22-2024 Hospital course Narrative Images from the [...] -14 ml LABS: CBC: Recent Labs 05/20/24 0605/21/246 05/22/24 0548 WBC 5.5 5.8 6.4 RBC [...] 5 LIVER PROFILE: Recent Labs 05/20/24 0605/21/24 033 05/22/24 0434 AST 23 24 25 ALT [...] Complexity: follow up within 7-14 calendar days (93019) [] Severe Complexity: follow up within 7 calendar days (13655) FOLLOW UP TESTING, PENDING RESULTS OR REFERRALS [...] 05/22/2024, 1:52 PM documented in this encounter [facility] 05-22-2024 Note Hospitalist Progress Note 05/22/2024 Subjective: [...] (each=1, panels c (more content not included)... [facility] 05-22-2024 History of Present illness Narrative Hospitalist [...] Emergency Contact: SUMI REYNOLDS Mobile Relation: Daughter Bradbam Katia Mahajan MD Division of Hospitalist Medicine Inpatient Medical Services/[facility] Images from the original note were not included. PHYSICAL THERAPY [facility] Initial Evaluation Name/MRN: Anmol Reynolds ([id number]) Evaluation Date: 05/21/2024 Date of : 1960 Admission Date: 05/17/2024 8:25 PM Age: 63 y.o. Room[facility]: [facility] A Discharge Recommendation: ECF without PT (Patient states he may be interested to going to a different ECF in [place]) Equipment Needed: No Assessment IMPRESSION: Patient is [...] DECOMPRESSION performed by Opal Vigil MD at [facility] OR ORTHOPEDIC SURGERY Right removal of hardware ankle US PLACE URETAL STENT PERC PRE-EXIST TRACT S&I (HISTORICAL) Bilateral 04/14/2024 Dr. Patel/Bashir Admission Diagnosis: Patient Active Problem List Diagnosis Date Noted Hypertension 01/06/2017 Hyperglycemia 01/06/2017 Hip sprain 01/06/2017 Anxiety 01/06/2017 Positive blood cultures 05/17/2024 Calculus of ureter 05/06/2024 Bladder calculus 05/05/2024 Pressure injury of coccygeal region, stage 3 ([facility]) 04/20/2024 Septic shock ([facility]) 04/14/2024 Lumbar stenosis with neurogenic claudication 10/24/2020 Spinal stenosis of lumbar region with neurogenic claudication 10/24/2020 Nicotine use disorder 10/15/2020 Unspecified osteoarthritis, unspecified site 10/15/2020 Pilonidal cyst without abscess 10/15/2020 Diabetes mellitus without complication ([facility]) ([facility]) 10/15/2020 Abnormal finding on EKG 10/15/2020 Other [...] normal Social/Functional History Patient [facility] SNF. [facility] Assistive Equipment: wheelchair - electric, [...] of Care supervision is transferred to a [facility] Therapy Services Physical Therapist. Goals and/or treatment plan was established in collaboration with patient/family/other representatives. Hospitalist Progress Note 05/21/2024 Subjective: Admit Date: 05/17/2024 PCP: Tab Dupont Room#: W6-625/W6625 A Brief Hospital course: Anmol is a [...] Net 240 ml LABS: CBC: Recent Labs 05/19/24 0407 05/20/24 0606 05/21/24 0336 WBC 5.4 5.5 5.8 RBC 3.96* [...] Emergency Contact: SUMI REYNOLDS Mobile Relation: Daughter Gabrielledenny Christiandon MD [place] Division of Hospitalist Medicine Inpatient Medical Services/[facility] Images from the original note were not included. [facility] - Infectious Diseases [employer] Progress Note Subjective: Following for CoNS positive [...] F) Temporal 69 -- 95 % -- 05/19/24 2020 138/83 36.5 C (97.7 F) Temporal 74 [...] Behavior: Behavior normal. Labs: Recent Labs 05/18/2461905/19/2440605/20/24 0606 NA 136 134* 134* K 4.5 3.4* 4.0 CL 108* 110* 109* CO2 22 21* 21* BUN 13 11 10 CREATININE 0.64* 0.44* 0.50* GLUCOSE 143* 212* 207* CALCIUM 8.6 8.4 8.5 PROT -- 6.3 6.4 BILITOT -- 0.6 0.6 ALKPHOS -- 155* 153* AST -- 29 23 ALT -- 19 22 Recent Labs 05/17/24205705/18/2461905/19/247 05/20/24 0606 WBC 3.5* 7.7 5.4 5.5 HGB 19.6* 12.5* 12.0* 12.2* HCT 60.0* 38.7* 35.8* 37.0* PLT 105* 222 212 197 LYMPHOPCT 26.9 28.0 -- -- MONOPCT 6.8 9.6 -- -- BASOPCT 0.8 0.8 -- -- NEUTROABS 2.0 4.3 -- -- Micro: 05/18- urine cx >100k ESBL proteus mirabilis 05/17- blood cx- 2/2 NGTD 05/16- blood cx- 1/1 CoNS ([facility]) 05/05- tissue from bladder- C parapsilosis, [...] if questions or concerns. Rosalinda Fox CNP [facility] - Infectious Diseases 10:11 AM 05/20/2024 Based on diagnoses and management, combination of acute and chronic problems, exacerbations and/or acuity, this visit should be considered to be of moderate complexity. Hospitalist Progress Note 05/20/2024 Subjective: Admit Date: 05/17/2024 PCP: Tab Dupont Room#: W6-365/W6-347 A Brief Hospital course: Anmol is a [...] Net -2064 ml LABS: CBC: Recent Labs 05/18/2461905/19/24 0407 05/20/24 0606 WBC 7.7 5.4 5.5 [...] Secondary Emergency Contact: GAILSUMI Mobile Relation: Daughter Parvin Dillonsalvadordon MD [place] Division of Hospitalist Medicine Inpatient Medical Services/[facility] Nutrition Assessment Type and Reason for Visit: [...] of note, pt was recently admitted to [facility] 04/14-04/20/2024 with proteus, providencia, and morganella bacteremia [...] On: Kcal/kg Weight Used for Energy Requirements: [place] Weight for Energy Calculation (kg): 89 kg Total Energy Requirements (kcals/day): 1622-2013 kcal/day (25-30 kcal/kg) Weight Used for Protein Requirements: [place] Weight in Kg Used for Protein Requirements: [...] mostly appear stated, 180-200#, noted 04/19- 212#) [place] Body Weight (lbs) (Calculated): 196 lbs [place] Body Weight (Kg) (Calculated): 89 kg BMI [...] Chelita Dominguez RD Contact: Secure chat or *[phone] Images from the original note were not included. [facility] - Infectious Diseases [employer] Progress Note Subjective: Following for CoNS positive [...] (97.7 F) Temporal 83 20 94 % 05/18/24 1824 128/81 36.2 C (97.2 F) Temporal [...] 2/2 NGTD 05/16- blood cx- 1/1 CoNS ([facility]) 05/05- tissue from bladder- C parapsilosis, [...] plan d/w Dr. Montano. Rosalinda Fox CNP [facility] - Infectious Diseases 3:08 PM 05/19/2024 Based on diagnoses and management, combination of acute and chronic problems, exacerbations and/or acuity, this visit should be considered to be of moderate complexity. Hospitalist Progress Note 05/19/2024 Subjective: Admit Date: 05/17/2024 PCP: AMBROSIO MONROY DO Room#: W6-492/W6-474 A Brief Hospital course: Anmol is a [...] PLT 105* 222 212 BMP: Recent Labs 08/13/24 205705/18/2461905/19/247 NA 136 136 134* K 4.4 4.5 3.4* CL 109* 108* 110* CO2 20* 22 21* BUN 12 13 11 CREATININE 0.68 0.64* 0.44* GLUCOSE 172* 143* 212* CALCIUM 8.7 8.6 8.4 ANIONGAP 6 5 3 LIVER PROFILE: Recent Labs 05/19/24406 AST 29 ALT 19 BILITOT 0.6 ALKPHOS [...] Secondary Emergency Contact: GAILSUMI Mobile Relation: Daughter Harikrishnbam Mahajan MD Division of Hospitalist Medicine Inpatient Medical Services/[place] Hospitalist Progress Note 05/18/2024 Subjective: Admit Date: [...] 15.6* PLT 105* 222 BMP: Recent Labs 05/17/248 05/18/24 0620 NA 136 136 K 4.4 4.5 [...] Emergency Contact: SUMI REYNOLDS Mobile Relation: Daughter Bradbam Katia [facility]ajan MD [facility] documented in this encounter [facility] 05-22-2024 Note Formatting of this n ote might be different from the original. CARE COORDINATION DAILY NOTE/UPDATE Discharge Plan: [facility] This TCC was tasked to follow this patient through the weekend assisting with discharge planning. Chart was reviewed. Met with patient at bedside to confirm if he would like to return to [facility]. Patient agreeable to return. Messaged attending and infectious disease to see if patient is able to discharge today. Discharge order placed. Scheduled discharge transportation in [employer], product picker time confirmed for 05/22 at 1600. Bedside nurse notified of transport and will update patient and family of plan Facility notified of transportation time and discharge documents including After Visit Summary, MAR, LABS, and Vitals were uploaded into careport for review. [facility] 05-22-2024 Note Formatting of this n ote might be different from the original. CARE COORDINATION DAILY NOTE/UPDATE Discharge Plan: [facility] This TCC was tasked to follow this patient through the weekend assisting with discharge planning. Chart was reviewed. Met with patient at bedside to confirm if he would like to return to [facility]. Patient agreeable to return. Messaged attending and infectious disease to see if patient is able to discharge today. Discharge order placed. Scheduled discharge transportation in [employer], product picker time confirmed for 05/22 at 1600. Bedside nurse notified of transport and will update patient and family of plan Facility notified of transportation time and discharge documents including After Visit Summary, MAR, LABS, and Vitals were uploaded into careport for review. [facility] 05-22-2024 Plan of care note [...] Assess Nutritional Intake Outcome: Adequate for Discharge [facility] 05-22-2024 Note Problem: Safety Goal: Patient will be injury free during hospitalization Outcome: Progressing Problem: Safety Goal: I will remain free of falls Outcome: Progressing [facility] 05-22-2024 Plan of care note Problem: Safety Goal: Patient will be injury free during hospitalization Outcome: Progressing Problem: Safety Goal: I will remain free of falls Outcome: Progressing [facility] 05-21-2024 Note PHYSICAL THERAPY [facility] Initial Evaluation Name/MRN: Anmol Reynolds ([id number]) Evaluation Date: 05/21/2024 Date of : 1960 Admission Date: 05/17/2024 8:25 PM Age: 63 y.o. Room/Bed: W6625/W6625 A Discharge Recommendation: ECF without PT (Patient states he may be interested to going to a different ECF in [place]) Equipment Needed: No Assessment IMPRESSION: Patient is [...] DECOMPRESSION performed by Opal Vigil MD at [facility] OR ORTHOPEDIC SURGERY Right removal of hardware ankle US PLACE URETAL STENT PERC PRE-EXIST TRACT S&I (HISTORICAL) Bilateral 04/14/2024 Dr. Patel/Bashir Admission Diagnosis: Patient Active Problem List Diagnosis Date Noted Hypertension 01/06/2017 Hyperglycemia 01/06/2017 Hip sprain 01/06/2017 Anxiety 01/06/2017 Positive blood cultures 05/17/2024 Calculus of ureter 05/06/2024 Bladder calculus 05/05/2024 Pressure injury of coccygeal region, stage 3 ([facility]) 04/20/2024 Septic shock ([facility]) 04/14/2024 Lumbar stenosis with neurogenic claudication 10/24/2020 Spinal stenosis of lumbar region with neurogenic claudication 10/24/2020 Nicotine use disorder 10/15/2020 Unspecified osteoarthritis, unspecified site 10/15/2020 Pilonidal cyst without abscess 10/15/2020 Diabetes mellitus without complication ([facility]) ([facility]) 10/15/2020 Abnormal finding on EKG 10/15/2020 Other [...] normal Social/Functional History Patient admitted from SNF. ([facility]) Assistive Equipment: wheelchair - electric, hospital bed, [...] Rolling to left: (more content not included)... [facility] 05-21-2024 Note Hospitalist Progress Note 05/21/2024 Subjective: Admit Date: 05/17/2024 PCP: Tab Dupont Room#: W6-826/W6-924 A Brief Hospital course: Anmol is a [...] Net 240 ml LABS: CBC: Recent Labs 05/19/24 40605/20/24 0605/21/24 0336 WBC 5.4 5.5 5.8 RBC 3.96* 4.08* 4.04* HGB 12.0* 12.2* 12.4* HCT 35.8* 37.0* 37.5* MCV 90.4 90.7 92.8 RDW 14.9 15.1* 15.0 PLT 212 197 192 BMP: Recent Labs 05/19/2440605/20/2460505/21/24 0336 NA 134* 134* 136 K 3.4* 4.0 3.9 CL 110* 109* 109* CO2 21* 21* 18* BUN 11 10 11 CREATININE 0.44* 0.50* 0.46* GLUCOSE 212* 207* 157* CALCIUM 8.4 8.5 8.5 ANIONGAP 3 4 8 LIVER PROFILE: Recent Labs 05/19/2440605/20/2460505/21/24335 AST 29 23 24 ALT 19 22 [...] and/or studies (ea (more content not included)... [facility] 05-21-2024 Plan of care note Problem: Knowledge [...] Interventions Goal: Assess Nutritional Intake Outcome: Progressing [facility] 05-20-2024 Plan of care note Problem: Knowledge Deficit Goal: Patient/family/caregiver demonstrates understanding of disease process, treatment plan, medications, and discharge instructions Outcome: Progressing Problem: Potential for Compromised Skin Integrity Goal: Skin Integrity is Maintained or Improved Outcome: Progressing Goal: Nutritional status is improving Outcome: Progressing [facility] 05-20-2024 Note Formatting of this n ote might be different from the original. Chart reviewed. ID following for CoNS postive BC and proteus UTI. Repeat BC pending. +iv cefepime, final course not yet determined. Current discharge plan is return to [facility]. Will return skilled only if needed, otherwise he can return [facility]. TCC to continue to follow. [facility] 05-20-2024 Note Formatting of this n ote might be different from the original. Chart reviewed. ID following for CoNS postive BC and proteus UTI. Repeat BC pending. +iv cefepime, final course not yet determined. Current discharge plan is return to [facility]. Will return skilled only if needed, otherwise he can return under his medicaid benefit per careport message. TCC to continue to follow. [facility] 05-20-2024 Note [facility] - Infectious Diseases [employer] Progress Note Subjective: Following for CoNS positive [...] normal. Behavior: Behavior normal. Labs: Recent Labs 05/18/24 0620 05/19/24 0407 05/20/24 0606 NA 136 134* 134* K 4.5 3.4* 4.0 CL 108* 110* 109* CO2 22 21* 21* BUN 13 11 10 CREATININE 0.64* 0.44* 0.50* GLUCOSE 143* 212* 207* CALCIUM 8.6 8.4 8.5 PROT -- 6.3 6.4 BILITOT -- 0.6 0.6 ALKPHOS -- 155* 153* AST -- 29 23 ALT -- 19 22 Recent Labs 05/17/24205705/18/24 0620 05/19/24 0407 05/20/24 0606 WBC 3.5* 7.7 5.4 5.5 HGB 19.6* 12.5* 12.0* 12.2* HCT 60.0* 38.7* 35.8* 37.0* PLT 105* 222 212 197 LYMPHOPCT 26.9 28.0 -- -- MONOPCT 6.8 9.6 -- -- BASOPCT 0.8 0.8 -- -- NEUTROABS 2.0 4.3 -- -- Micro: 05/18- urine cx >100k ESBL proteus mirabilis 05/17- blood cx- 2/2 NGTD 05/16- blood cx- / CoNS ([facility]) 05/05- tissue from bladder- C parapsilosis, K [...] if questions or concerns. Rosalinda Fox CNP [facility] - Infectious Diseases 10:11 AM 05/20/2024 Based on diagnoses and management, combination of acute and chronic problems, exacerbations and/or acuity, this visit should be considered to be of moderate complexity. [facility] 05-20-2024 Note Hospitalist Progress Note 05/20/2024 Subjective: Admit Date: 05/17/2024 PCP: Tab Dupont Room#: W6-625/W6-788 A Brief Hospital course: Anmol is a [...] 222 212 197 BMP: Recent Labs 05/18/24 0620 05/19/24 0407 05/20/24 0606 NA 136 134* 134* [...] as 1). ( (more content not included)... [facility] 05-20-2024 Hospital Discharge instructions Elly Cormier RN - 05/20/2024 7:34 AM EDT Images from the original note were not included. Continuity of Care Form Patient Name: Anmol Reynolds : 1960 Admit date: 05/17/2024 Discharge date: 05/22/2024 Code Status Order: Full Code Advance Directives: N Admitting Physician: Heydi Concepcion MD PCP: Tab Dupont Discharging Nurse: Elly Banks RN Discharging Hospital Unit/Room#: W2-635/W6625 A Discharging Unit Emergency Contact: Extended Emergency [...] DECOMPRESSION performed by Opal Vigil MD at [facility] OR ORTHOPEDIC SURGERY Right removal of hardware [...] Total assistance Toileting Total assistance Feeding Independent Wire Charger Total assistance Med Delivery yes Wound Care [...] Date: 05/17/2024 Discharging to Facility/ Agency Name: [facility] Address: [address] [place] [address] Motion Picture Operator/Regulator Operator signature: ICIAN SECTION Name: Anmol Reynolds Prognosis: fair Condition at Discharge: stable Rehab Potential (if transferring to Rehab): fair Recommended Labs or Other Treatments After Discharge: cbc,cmp The individual is being admitted to a nursing facility directly from an [facility] or a unit of a [facility] academic health system that is not operated by or licensed by [facility] under section 5119.14 or 5160-3-15.1 5 The individual requires the level of services provided by a nursing facility for the condition for which he or she was treated in the hospital and, Physician Certification: I certify the above information and transfer of Anmol Reynolds is necessary for the continuing treatment of the diagnosis listed and that he requires longterm facility for less than 30 days. Update Admission H&P: No change in H&P PHYSICIAN SIGNATURE: documented in this encounter [facility] 05-19-2024 Note Formatting of this n ote might be different from the original. [facility] request. Await review and response regarding ability to accept. TCC notified. [facility] 05-19-2024 Note Formatting of this n ote might be different from the original. Return Referral placed to [facility] via Careport per TCC request. Await review and response regarding ability to accept. TCC notified. [facility] 05-19-2024 Note Return Referral plac ed to [facility] via Careport per TCC request. Await review and response regarding ability to accept. TCC notified. [facility] 05-19-2024 Note Formatting of this n ote might be different from the original. Care Managment Initial Assessment Date: 05/19/2024 Patient Name: Anmol Reynolds : 1960 Patient Information Source of Information: Patient Cognition/Language: WFL - Within Functional Limits Permission given to speak with patient major account representative/caregiver as indicated: Yes Confirmation of Payer with patient/family: Yes Payer Name: Medicare A/B; [place] Medicaid [place]: No Confirmation of Primary Care Physician: Confirmed PCP Name: Tab Nieves MD at facility Seen in last 2 years?: Yes Primary Caregiver: Other (Comment) (facility staff) If assistance needed, confirmed caregiver ready, willing and able to care for patient at discharge: No (n/a) Confirmed with: Living Arrangements Facility: [facility] Facility Name: [facility] Plan to Return: Yes Lives with: Alone, Other (Comment) (at [facility]) Support Systems: Children, Family members, Comments (Other) (facility staff) Activities of Daily Living Ambulation: Total Care (patient paraplegic waist down) Bathing/Dressing: Assistance Elimination/Continence/Toileting: Assistance Feeding: Independent Who Assists with Activities of Daily Living: Instrumental Activities of Daily Living Prescription Coverage: Yes Pharmacy Used: facility manages Medication Management: Transportation/Shopping: Assistance Provider Transportation/Shopping Assistance Provider Name: [facility] Transportation Mode: Needs Assistance with Transportation [...] ECF Discharge Planning Actions: Continue to follow, Detention Facility referral indicated [place] of choice: [place] of choice discussed (choice list not indicated; [...] ID consulted. Patient is a resident at [facility] xfew years. Patient confirmed plan for return. BEHAVIORAL CONSULTANT tasked to place return referral. Anticipate discharge in 2-3 days pending medical stability. Patient will need transport. TCC to continue to follow. Vipin Peter RN [facility] 05-19-2024 Note Formatting of this n ote might be different from the original. Care Managment Initial Assessment Date: 05/19/2024 Patient Name: Anmol Reynolds : 1960 Patient Information Source of Information: Patient Cognition/Language: WFL - Within Functional Limits Permission given to speak with patient major account representative/caregiver as indicated: Yes Confirmation of Payer [...] No (n/a) Confirmed with: Living Arrangements Facility: [facility] Facility Name: [facility] Plan to Return: Yes Lives with: Alone, Other (Comment) (at F) Support Systems: Children, Family members, Comments (Other) [...] ECF Discharge Planning Actions: Continue to follow, Detention Facility referral indicated [place] of choice: [place] of choice discussed (choice list not indicated; [...] ID consulted. Patient is a resident at [facility] xfew years. Patient confirmed plan for return. BEHAVIORAL CONSULTANT tasked to place return referral. Anticipate discharge in 2-3 days pending medical stability. Patient will need transport. TCC to continue to follow. Vipin Peter RN [facility] 05-19-2024 Note [facility] Medical Group - Infectious Diseases [employer] Progress Note Subjective: Following for CoNS positive [...] NGTD 05/16- blood cx- 1/1 CoNS ([facility]) 05/05- tissue from bladder- C parapsilosis, K [...] follow; plan d/w Dr. Montano. Rosalinda Fox, [facility] - Infectious Diseases 3:08 PM 05/19/2024 Based on diagnoses and management, combination of acute and chronic problems, exacerbations and/or acuity, this visit should be considered to be of moderate complexity. [facility] 05-19-2024 Note Hospitalist Progress Note 05/19/2024 Subjective: Admit Date: 05/17/2024 PCP: AMBROSIO MONROY DO Room#: W6-625/W6-698 A Brief Hospital course: Anmol is a [...] Net -1015.67 ml LABS: CBC: Recent Labs 05/17/24205705/18/24 0620 05/19/24 0407 WBC 3.5* 7.7 5.4 RBC 6.51* 4.13* 3.96* HGB 19.6* 12.5* 12.0* HCT 60.0* 38.7* 35.8* MCV 92.2 93.7 90.4 RDW 16.8* 15.6* 14.9 PLT 105* 222 212 BMP: Recent Labs 05/17/24205705/18/24 0620 05/19/24 0407 NA [...] or more new (more content not included)... [facility] 05-18-2024 Plan of care note The patient is Moderately Stable - Low risk of patient condition declining or worsening The patient's goals for the shift include Pain control. The clinical goals for the shift include Patient to remain free of injury for the entirety of the shift. [facility] 05-18-2024 Note Problem: Knowledge D eficit Goal: Patient/family/caregiver demonstrates understanding of disease process, treatment plan, medications, and discharge instructions Outcome: Progressing [facility] 05-18-2024 Plan of care note Problem: Knowledge Deficit Goal: Patient/family/caregiver demonstrates understanding of disease process, treatment plan, medications, and discharge instructions Outcome: Progressing [facility] 05-18-2024 Emergency department Note Pt refusing BG check stating "I'm already eating." MD savage. Ella Zavala RN 05/18/24 1805 [facility] 05-18-2024 Emergency department Note Pt refusing BG check stating "I'm already eating." MD aware. Ella Zavala RN 05/18/24 1805 Pt refusing BG check at this time. MD aware. Ella Zavala RN 05/18/24 1237 Pt [...] cleaned pt. Carmen Crews RN 05/18/24 0454 Pt transport has been requested Carmen Crews [...] DECOMPRESSION performed by Opal Vigil MD at [facility] OR ORTHOPEDIC SURGERY Right removal of hardware [...] Resource Strain: Low Risk (04/24/2023) Received from [facility], [facility] Overall Financial Resource Strain (CARDI) Difficulty of [...] Culture. Procedure Abnormality Status --------- ------ Complete Urinalysis[[id number]] Abnormal Final result Please view results for these tests on the individual orders. COMPLETE URINALYSIS WITH REFLEX TO CULTURE Narrative: The following orders were created for panel order Urinalysis complete with reflex to Culture. Procedure Abnormality Status --------- ------ Complete Urinalysis[[id number]] Please view results for these tests on the individual orders. COMPLETE URINALYSIS All other labs were within normal range or not returned as of this dictation. EMERGENCY DEPARTMENT COURSE and DIFFERENTIAL DIAGNOSIS/MDM: Vitals: Vitals: 05/17/24 2034 05/17/246 BP: 123/84 118/68 Patient Position: Lying Lying [...] Emergency Medicine Provider Terri Simeon PA-C 05/17/24 0943 Emergency Department Encounter [facility] EM[facility]ENCY DEPT Patient: [...] [employer] Rodney Guerrero DO 05/18/24 0435 documented in this encounter [facility] 05-18-2024 Emergency department Note Pt refusing BG check at this time. aware. Ella Zavala RN 05/18/24 1237 [facility] 05-18-2024 Emergency department Note Pt refusing continuous IV fluids. MD janette Zavala RN 05/18/24 1051 [facility] 05-18-2024 Emergency department Note Pt moved onto hospital bed, denies any needs or complaints at this time. Ella Zavala RN 05/18/24 1026 [facility] 05-18-2024 Emergency department Note Pharmacy contacted regarding missing oxycodone. Ella Zavala RN 05/18/24 1052 [facility] 05-18-2024 Consult note Associated Order (s): IP CONSULT TO INFECTIOUS DISEASES Images from the original note were not included. [facility] Medical [facility] - Infectious Diseases [employer] inpatient Consult Note Reason for Consult: Complicated [...] daptomycin with suppressive minocycline. Pt presented to [facility] ED on 05/17/2024 for evaluation of positive blood cultures. Pt was recently admitted to [facility] 04/14-04/20/2024 with proteus, providencia, and morganella bacteremia [...] DECOMPRESSION performed by Opal Vigil MD at [facility] OR ORTHOPEDIC SURGERY Right removal of hardware [...] Resource Strain: Low Risk (04/24/2023) Received from [facility], [facility] Overall Financial Resource Strain (CARDIA) [...] 05/16- blood cx- 1/1 GPC in clusters ([facility]) 05/05- tissue from bladder- C parapsilosis, K [...] cultures from 05/06 Called micro lab at [facility]--> blood cx + CoNS (only one set drawn). Hold off on vancomycin for now and follow-up repeat blood cx. If negative, likely CoNS is a contaminant. ID service will continue to follow; plan d/w Dr. Montano. Rosalinda Fox CNP [facility] - Infectious Diseases 12:28 PM 05/18/2024 Total time 75 minutes on this day of encounter includes counseling, coordinating plan of care, record and documentation review before and after visit including documentation and time not explicitly included on EMR time stamp for accounting for open encounter. [facility] 05-18-2024 Consult note Associated Order (s): IP CONSULT TO INFECTIOUS DISEASES Images from the original note were not included. 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 He required I&D x2 with KIRS (01/06/22) and T12-L5 posterior spinal instrumentation (01/14/22)--> followed by [facility] and treated with 6 weeks daptomycin with suppressive minocycline. Pt presented to [facility] ED on 05/17/2024 for evaluation of positive blood cultures. Pt was recently admitted to [facility] 04/14-04/20/2024 with proteus, providencia, and morganella bacteremia [...] DECOMPRESSION performed by Opal Vigil MD at [facility] OR ORTHOPEDIC SURGERY Right removal of hardware [...] 100 mg 100 mg Oral BID Heydi Concecpion MD enoxaparin (Lovenox) syringe 40 mg 40 [...] Resource Strain: Low Risk (04/24/2023) Received from [facility], [facility] Overall Financial Resource Strain (CARDIA) [...] 05/16- blood cx- 1/1 GPC in clusters ([facility]) 05/05- tissue from bladder- C parapsilosis, [...] cultures from 05/06 Called micro lab at [facility]--> blood cx + CoNS (only one set drawn). Hold off on vancomycin for now and follow-up repeat blood cx. If negative, likely CoNS is a contaminant. ID service will continue to follow; plan d/w Dr. Montano. Rosalinda Fox CNP [facility] Group - Infectious Diseases 12:28 PM 05/18/2024 Total time 75 minutes on this day of encounter includes counseling, coordinating plan of care, record and documentation review before and after visit including documentation and time not explicitly included on EMR time stamp for accounting for open encounter. documented in this encounter [facility] 05-18-2024 Note Hospitalist Progress Note 05/18/2024 Subjective: [...] unstable/uncontrolled chronic problems/diagnoses (more content not included)... [facility] 05-18-2024 Emergency department Note Pt refused BG check/meds at this time stating "I just want some sleep." Hospital bed ordered for pt. Meds deferred at this time. Ella Zavala RN 05/18/24 0822 [facility] 05-18-2024 Emergency department Note Pt had a bowel movement, this RN & another RN cleaned pt. Carmen Crews RN 05/18/24 0459 [facility] 05-18-2024 Emergency department Note Pt transport has been requested Carmen Crews RN 05/18/24 1041 [facility] 05-18-2024 Emergency department Note Pt is asleep, w/ unlabored breathing Carmen Crews RN 05/18/24 0155 Carmen Crews RN 05/18/24 0156 [facility] 05-17-2024 History and physical note Attending History [...] DECOMPRESSION performed by Opal Vigil MD at [facility] OR ORTHOPEDIC SURGERY Right removal of hardware [...] Resource Strain: Low Risk (04/24/2023) Received from [facility], [facility] Overall Financial Resource Strain (CARDIA) [...] S2+, no m/r/g Abdomen: soft, nontender, BS+ SUPERVISOR REAL ESTATE OFFICE: Awake and alert Ext: pulse 2+ DATA: [...] - DO NOT do CPR, intubation] [_] [DNR-DEVELOPMENT TECHNOLOGIST - Comfort care only] [_] DNR form [...] Heydi Concepcion MD Division of Hospitalist Medicine [facility] Work Phone: 05-17-2024 History and physical note [...] DECOMPRESSION performed by Opal Vigil MD at [facility] OR ORTHOPEDIC SURGERY Right removal of hardware [...] Resource Strain: Low Risk (04/24/2023) Received from [facility], [facility] Overall Financial Resource Strain (CARDIA) [...] S2+, no m/r/g Abdomen: soft, nontender, BS+ SUPERVISOR REAL ESTATE OFFICE: Awake and alert Ext: pulse 2+ DATA: [...] Secondary Emergency Contact: GAILSUMI Mobile Relation: Daughter [employer] Anmol Franco Gail : 1960 Primary Care Physician: AMBROSIO MONROY DO The patient and/or family/surrogate voluntarily agreed to participate in ACP services. Patient s cognitive capacity: yes Code Status: [x] [FULL CODE - Continue all advanced life support: CPR,intubation,invasive procedures] [_] [DNR-CCA - DO NOT do CPR, intubation] [_] [DNR-DEVELOPMENT TECHNOLOGIST - Comfort care only] [_] DNR form [...] Heydi Concepcion MD Division of Hospitalist Medicine [facility] documented in this encounter [facility] 05-17-2024 Note Attending History an d Physical [...] DECOMPRESSION performed by Opal Vigil MD at [facility] OR ORTHOPEDIC SURGERY Right removal of hardware [...] Resource Strain: Low Risk (04/24/2023) Received from [facility], [facility] Overall Financial Resource Strain (CARDIA) [...] mg by mo (more content not included)... [facility] 05-17-2024 Physician Emergency department Note EMERGENCY DEPARTMENT [...] DECOMPRESSION performed by Opal Vigil MD at [facility] OR ORTHOPEDIC SURGERY Right removal of hardware [...] Resource Strain: Low Risk (04/24/2023) Received from [facility], [facility] Overall Financial Resource Strain (CARDIA) [...] Culture. Procedure Abnormality Status --------- ------ Complete Urinalysis[[id number]] Abnormal Final result Please view results for these tests on the individual orders. COMPLETE URINALYSIS WITH REFLEX TO CULTURE Narrative: The following orders were created for panel order Urinalysis complete with reflex to Culture. Procedure Abnormality Status --------- ------ Complete Urinalysis[[id number]] Please view results for these tests on the individual orders. COMPLETE URINALYSIS All other labs were within normal range or not returned as of this dictation. EMERGENCY DEPARTMENT COURSE and DIFFERENTIAL DIAGNOSIS/MDM: Vitals: Vitals: 05/17/24 2034 05/17/24 2306 BP: 123/84 118/68 Patient Position: Lying Lying [...] Emergency Medicine Provider Terri Simeon PA-C 05/17/24 5757 [facility] 05-17-2024 Physician Emergency department Note Emergency Department Encounter [facility] EMERGENCY DEPT Patient: [...] dictating provider for clarification.) Rodney Guerrero DO [facility] Rodney Guerrero DO 05/18/24 0435 [place] Phone: 05-15-2024 History of Present illness Narrative HISTORY OF PRESENT ILLNESS Diagnostic Sales Specialist: not needed - patient preferred language is Mongolian. HIPAA: Verbal permission granted from patient to discuss case, including protected health information, in front of family / friends in room at the time of the evaluation. Anmol Reynodls is a very pleasant 63 year old male here as new patient for a second opinion of MRI results. In 2019, pt had his first back surgery performed by [facility] which was an interbody fusion. 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 At that point, the hospital took the hardware out and did not replace it with the goal of treating the infection. 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 After the infection was treated, [facility] extended his fusion, decompressed the back, and [...] Resource Strain: Low Risk (04/24/2023) Received from [facility] Overall Financial Resource Strain (CARDIA) Difficulty of Paying Living Expenses: Not hard at all Food Insecurity: No Food Insecurity (05/05/2024) Received from [facility] Hunger Vital Sign Worried About Running Out of Food in the Last Year: Never true Ran Out of Food in the Last Year: Never true Transportation Needs: No Transportation Needs (05/05/2024) Received from [facility] PRAPARE - Transportation Lack of Transportation (Medical): No Lack of Transportation (Non-Medical): No Intimate Partner Violence: Not At Risk (05/05/2024) Received from [facility] Humiliation, Afraid, Rape, and Kick questionnaire Fear [...] Dr. Otis Mejia. documented in this encounter [facility] 05-13-2024 Telephone encounter Note Call received back from nurse Packer who states blooc cultures were missed, but she will have them done on Thursday when the lab come back to the facility. [facility] 05-13-2024 Miscellaneous Notes Call received back from nurse Packer who states blooc cultures were missed, but she will have them done on Thursday when the lab come back to the facility. Called and spoke to nurse Packer at [facility] to obtain blood culture results that were ordered to be done on 05/06/24. She did state she cannot tell if they were done, she will call their lab and have the results faxed to us. If they were not done, she will have them obtained. I did ask that she please let us know what the outcome it. documented in this encounter [facility] 05-13-2024 Telephone encounter Note Called and spoke to nurse Birdie at [facility] to obtain blood culture results that were ordered to be done on 05/06/24. She did state she cannot tell if they were done, she will call their lab and have the results faxed to us. If they were not done, she will have them obtained. I did ask that she please let us know what the outcome it. [facility] 05-10-2024 Telephone encounter Note Pt calling requesting provider to follow up regarding MRI. Pt was unable to provide telephone, address or SSN. No information was provided at this time. [facility] 05-10-2024 Miscellaneous Notes Pt calling requesting provider to follow up regarding MRI. Pt was unable to provide telephone, address or SSN. No information was provided at this time. documented in this encounter [facility] 05-06-2024 Nurse Note Patient requested discharge transportation be provided by his brother, who drives a wheelchair accessible van. Spoke with nurse at [facility] who was aware that patient was returning this evening and was agreeable to patient being transported by private vehicle. YASHIRA Harvey Bedside RN called report. Patient transferred via everett lift to personal wheelchair and was escorted down to main entrance where his brother picked him up in van [facility] 05-06-2024 Nurse Note Patient requested discharge transportation be provided by his brother, who drives a wheelchair accessible van. Spoke with nurse at [facility] who was aware that patient was returning this evening and was agreeable to patient being transported by private vehicle. YASHIRA Hernandez'alonso Bedside RN called report. Patient transferred via everett lift to personal wheelchair and was escorted down to main entrance where his brother picked him up in van documented in this encounter [facility] 05-06-2024 Note Formatting of this n ote is different from the original. Images from the original note were not included. Referral placed to [facility] Await review and response regarding ability to accept. TCC notified. Electronically signed by [facility] Juana Villagomezh [facility] 05-06-2024 Note Formatting of this n ote is different from the original. Images from the original note were not included. Referral placed to [facility] Await review and response regarding ability to accept. TCC notified. Electronically signed by [facility] Juana Villagomezh [facility] 05-06-2024 Note Referral placed to [facility] Await review and response regarding ability to accept. TCC notified. Electronically signed by [facility] Miscellaneous Notes Images from the original note were not included. Referral placed to [facility] Await review and response regarding ability to accept. TCC notified. Electronically signed by [facility] Juana Villagomezh Addendum to earlier note: Pt to be discharged (returned) back to [facility]. Bedside RN aware, SW aware and will plan transport. Referral placed to SNF Return - [facility] via [facility] per TCC request. Await review and response regarding ability to accept. TCC notified. Care Managment Initial Assessment Date: 05/06/2024 Patient Name: Anmol Reynolds : 1960 Patient Information Source of Information: Patient Cognition/Language: WFL - Within Functional Limits Permission given to speak with patient major account representative/caregiver as indicated: Confirmation of Payer with [...] Levels: Facility: Nursing Facility Skilled Facility Name: [facility] Plan to Return: Yes Lives with: Other (Comment) ([facility]) Support Systems: Parent, Family members, Friends/neighbors Activities of Daily Living Ambulation: Total Care Bathing/Dressing: Assistance Elimination/Continence/Toileting: Total Care Feeding: Independent Who Assists with Activities of Daily Living: Snf Staff Instrumental Activities of Daily Living Prescription Coverage: Yes Pharmacy Used: [facility] Medication Management: Transportation/Shopping: Assistance Provider Transportation Mode: Payer provided transport service Needs Assistance with Transportation at Discharge: Yes Meal Preparation: Assistance Provider Meal Prep Assistance Provider Name: [facility] Laundry/Cleaning: Assistance Provider Laundry/Cleaning Assistance Provider Name: [facility] Finances/Bill Paying: Independent Communication: Independent Types of Care Services/Equipment Utilized Care Services: Dialysis Type: Durable Medical Equipment: Wheelchair (standard or power), Hospital Bed, Other (Comment) DME Provider: Santana catheter (chronic) Patient's Goal/Discharge Plan Patient expects to be discharged to: Return to [facility] Discharge Planning Actions: Detention Facility referral indicated [place] of choice: [place] of choice discussed Patient's Choice Rights and [...] for kidney stones bilaterally. Pt is from [facility] and is agreeable to return. Pt states his mother is across the [place] from him. He has a chronic santana and R picc in place. On iv ceftriaxone. Regular diet. Pt had PT eval ordered. Met with pt at bedside; explained role of tcc. Pt wanting to return to [facility] Has chronic santana catheter. He has an electric w/c. Anticipate discharge (return) to [facility] today if medically stable. Anel Lima RN [...] PM UROLOGY OPERATIVE REPORT PATIENT NAME: Anmol D Given DATE OF : 1960 TODAY'S DATE: 05/06/2024 PreOp Dx:: Bladder calculus, bilateral ureteral calculus PostOp Dx: Same Operation : Cystoscopy pyelogram litholapaxy of large bladder stone left ureteroscopy with replacement of left stent, right stent change Surgeon Joan Patel MD Assist Kaitlin Granados Anesthesia:general lma Ebl: Drains 6fr X 24cmJJ Santana 16 Czech Santana catheter Specimen: Bladder calculus for stone [...] hopefully removal of the right stent INDICATIONS: Anoml Reynolds , is a 63 y.o. male [...] MAR for meds. documented in this encounter [facility] 05-06-2024 Hospital Discharge instructions Bianca Rodgers RN [...] Unit/Room#: H-5133/H-5133 A Discharging Unit Phone Number: [phone] Emergency Contact: Extended Emergency Contact Information Primary [...] DECOMPRESSION performed by Opal Vigil MD at [facility] OR ORTHOPEDIC SURGERY Right removal of hardware [...] assistance Toileting Total assistance Feeding Minimal assistance Wire Charger Minimal assistance Med Delivery yes Wound Care [...] are sent with patient): wheelchair RN SIGNATURE: {E-signature:12753} CASE MANAGEMENT/SOCIAL WORK SECTION Inpatient Status Date: Discharging to Facility/ Agency Name: Address: Phone: Fax: Dialysis Facility (if applicable) Name: Address: Dialysis Schedule: Phone: Fax: Motion Picture Operator/Regulator Operator signature: {E-signature:28234} PHYSICIAN SECTION Name: Anmol Reynolds Prognosis: {Rehab Prognosis:03262} Condition at Discharge: {Patient Condition:91980} Rehab Potential (if transferring to Rehab): {Rehab Prognosis:12114} Recommended Labs or Other Treatments After Discharge: The individual is being admitted to a nursing facility directly from an [facility] or a unit of a [facility] academic health system that is not operated by or licensed by [facility] under section 5119.14 or 5160-3-15.1 5 The individual requires the level of services provided by a nursing facility for the condition for which he or she was treated in the hospital and, Physician Certification: I certify the above information and transfer of Anmol Reynolds is necessary for the continuing treatment of the diagnosis listed and that he requires {ADELINE Level of Care:76543} for {greater less than:00808} 30 days. Update Admission H&P: {ADELINE Changes in H&P:58669} PHYSICIAN SIGNATURE: {E-signature:22296} The following attachments cannot be sent through Care Everywhere.Laser Lithotripsy for Kidney Stones Discharge Instructions (Mongolian)How to Care for Your Santana Catheter (Mongolian)documented in this encounter [facility] 05-06-2024 Note Formatting of this n ote might be different from the original. Addendum to earlier note: Pt to be discharged (returned) back to [facility]. Bedside RN aware, SW aware and will plan transport. [facility] 05-06-2024 Note Formatting of this n ote might be different from the original. Addendum to earlier note: Pt to be discharged (returned) back to [facility]. Bedside RN aware, SW aware and will plan transport. [facility] 05-06-2024 Note 48 Hour Discharge [facility] Note Patient ID: Anmol Reynolds [id number] 63 y.o. 1960 Admit date: 05/05/2024 Discharge [...] signed by Cindi Ferreira MD. PGY-2 Urology [facility] 05-06-2024 Hospital course Narrative Images from the original note were not included. 48 Hour Discharge Summary Note Patient ID: Anmol Reynolds [id number] 63 y.o. 1960 Admit date: 05/05/2024 Discharge [...] MD. PGY-2 Urology documented in this encounter [facility] 05-06-2024 Note Formatting of this n ote might be different from the original. Referral placed to [facility] via [facility] per TCC request. Await review and response regarding ability to accept. TCC notified. Electronically signed by [facility] 05-06-2024 Note Formatting of this n ote might be different from the original. Referral placed to [facility] via [facility] per TCC request. Await review and response regarding ability to accept. TCC notified. Electronically signed by [facility] 05-06-2024 Note Referral placed to [facility] Return [facility] via [facility] per TCC request. Await review and response regarding ability to accept. TCC notified. Electronically signed by [facility] 05-06-2024 Note Formatting of this n ote might be different from the original. Care Managment Initial Assessment Date: 05/06/2024 Patient Name: Anmol Reynolds : 1960 Patient Information Source of Information: Patient Cognition/Language: WFL - Within Functional Limits Permission given to speak with patient major account representative/caregiver as indicated: Confirmation of Payer with patient/family: Yes Payer Name: Medicare A/B [place]: No Confirmation of Primary Care Physician: Confirmed PCP Name: Ambrosio Monroy, DO Seen in last 2 years?: Yes Primary Caregiver: Self If assistance needed, confirmed caregiver ready, willing and able to care for patient at discharge: Confirmed with: Living Arrangements Current Residence: Number of Floors Number of Entry Steps: Bed/Bath Levels: Facility: Nursing Facility Skilled Facility Name: [facility] Plan to Return: Yes Lives with: Other (Comment) ([facility]) Support Systems: Parent, Family members, Friends/neighbors Activities [...] Assistance Provider Meal Prep Assistance Provider Name: [facility] Laundry/Cleaning: Assistance Provider Laundry/Cleaning Assistance Provider Name: SNF Finances/Bill Paying: Independent Communication: Independent Types of Care Services/Equipment Utilized Care Services: Dialysis Type: Durable Medical Equipment: Wheelchair (standard or power), Hospital Bed, Other (Comment) DME Provider: Santana catheter (chronic) Patient's Goal/Discharge Plan Patient expects to be discharged to: Return to [facility] Discharge Planning Actions: Detention Facility referral indicated [place] of choice: [place] of choice discussed Patient's Choice Rights and [...] for kidney stones bilaterally. Pt is from [facility] and is agreeable to return. Pt states his mother is across the [place] from him. He has a chronic santana and R picc in place. On iv ceftriaxone. Regular diet. Pt had PT eval ordered. Met with pt at bedside; explained role of tcc. Pt wanting to return to [facility] Has chronic santana catheter. He has an electric w/c. Anticipate discharge (return) to [facility] today if medically stable. Anel Lima RN [facility] 05-06-2024 Note Formatting of this n ote might be different from the original. Care Managment Initial Assessment Date: 05/06/2024 Patient Name: Anmol Reynolds : 1960 Patient Information Source of Information: Patient Cognition/Language: WFL - Within Functional Limits Permission given to speak with patient major account representative/caregiver as indicated: Confirmation of Payer with patient/family: Yes Payer Name: Medicare A/B [place]: No Confirmation of Primary Care Physician: Confirmed PCP Name: Ambrosio Monroy DO Seen in last 2 years?: Yes Primary Caregiver: Self If assistance needed, confirmed caregiver ready, willing and able to care for patient at discharge: Confirmed with: Living Arrangements Current Residence: Number of Floors Number of Entry Steps: Bed/Bath Levels: Facility: Nursing Facility Skilled Facility Name: [facility] Plan to Return: Yes Lives with: Other (Comment) ([facility]) Support Systems: Parent, Family members, Friends/neighbors Activities [...] Assistance Provider Meal Prep Assistance Provider Name: [facility] Laundry/Cleaning: Assistance Provider Laundry/Cleaning Assistance Provider Name: [facility] Finances/Bill Paying: Independent Communication: Independent Types of Care Services/Equipment Utilized Care Services: Dialysis Type: Durable Medical Equipment: Wheelchair (standard or power), Hospital Bed, Other (Comment) DME Provider: Santana catheter (chronic) Patient's Goal/Discharge Plan Patient expects to be discharged to: Return to [facility] Discharge Planning Actions: Detention Facility referral indicated [place] of choice: [place] of [place] discussed Patient's Choice Rights and [...] for kidney stones bilaterally. Pt is from [facility] and is agreeable to return. Pt states his mother is across the [place] from him. He has a chronic santana and R picc in place. On iv ceftriaxone. Regular diet. Pt had PT eval ordered. Met with pt at bedside; explained role of tcc. Pt wanting to return to [facility] Has chronic santana catheter. He has an electric w/c. Anticipate discharge (return) to [facility] today if medically stable. Anel Lima RN [facility] 05-06-2024 Note UROLOGY PROGRESS NOTE PATIENT NAME: Anmol Franco Given DATE OF : 1960 ADMISSION DATE: 05/05/2024 TODAY'S DATE: 05/06/2024 Subjective Pt evalauted at bedside in [facility]. POD1 of laser lithotripsy and b/l ureteral [...] PGY-2 Urology Cindi Ferreira MD PGY-2 Urology [facility] 05-06-2024 History of Present illness Narrative UROLOGY PROGRESS NOTE PATIENT NAME: Anmol Reynolds DATE OF : 1960 ADMISSION DATE: 05/05/2024 TODAY'S DATE: 05/06/2024 Subjective Pt evalauted at bedside in [facility]. [facility]. POD1 of laser lithotripsy and b/l ureteral [...] MD PGY-2 Urology documented in this encounter [facility] 05-05-2024 Plan of care note The patient [...] Recommendations to address these barriers include none. [facility] 05-05-2024 Note Formatting of this n ote might be different from the original. Belongings returned to patient bedside. Meal tray ordered [facility] 05-05-2024 Note Formatting of this n ote might be different from the original. Belongings returned to patient bedside. Meal tray ordered [facility] 05-05-2024 Note Patient: Anmol Santiago en Procedure Summary Date: 05/05/24 Room / Location: [address] Operating Room Anesthesia Start: 152 Anesthesia [...] opportunity for questions and acknowledgement of understanding. [facility] 05-05-2024 Note Patient: Anmol Santiago en Procedure Summary Date: 05/05/24 Room / Location: [address] Operating Room Anesthesia Start: 1521 Anesthesia Stop: 1653 Procedures: CYSTOSCOPY, POSSIBLE CYSTOLITHOLAPAXY, BILATERAL URETEROSCOPY ASTRID LASER LITHOTRIPSY, BILATERAL URETERAL STENT CHANGE (Urethra) POSSIBLE CYSTOLITHOLAPAXY (Urethra) BILATERAL URETEROSCOPY ASTIRD LASER LITHOTRIPSY (Bilateral: Urethra) BILATERAL URETERAL STENT [...] once all PACU criteria has been met. [facility] 05-05-2024 Note Airway Date/Time: 05/05/2024 3:29 PM Urgency: scheduled Airway not difficult General Information and Staff Patient location during procedure: Procedural Resident/PHILOSOPHY SPECIALIST: Jj Flores CRNA Performed: PHILOSOPHY SPECIALIST Indications and Patient Condition Indications for airway management: anesthesia Sedation level: Asleep Preoxygenated: yes Patient position: sniffing Mask difficulty assessment: 0 - not attempted Final Airway Details Final airway type: supraglottic airway Successful airway: Igel Size 4 Number of attempts at approach: 1 [facility] 05-05-2024 Note Formatting of this n [...] Ebl: Drains 6fr X 24cmJJ Santana 16 Czech Santana catheter Specimen: Bladder calculus for stone [...] removal. Joan Patel MD 05/06/24 5:11 PM [facility] 05-05-2024 Note Formatting of this n ote [...] Ebl: Drains 6fr X 24cmJJ Santana 16 Czech Santana catheter Specimen: Bladder calculus for stone [...] the patient wishes to proceed. PROCEDURE: Anmol Reynlods Was brought to the operating room. Thorough [...] removal. Joan Patel MD 05/06/24 5:11 PM [facility] 05-05-2024 Attending History and physical [...] 1:20 PM Source Note - Radha Lucas, PRESS BREAKER - [employer]ER [employer]ER - 04/27/2024 2:00 PM EDT Images from the original note were not included. Comprehensive Pre Surgical History and Physical ? Name: Anmol Reynolds : 1960 (Age-63 y.o.) Date of Service: Pt seen/examined on 04/27/2024 Procedure Information Date/Time: 05/05/24 1230 Procedures: CYSTOSCOPY (Urethra) - 120 MINS POSSIBLE CYSTOLITHOLAPAXY (Urethra) BILATERAL URETEROSCOPY ASTRID LASER LITHOTRIPSY (Bilateral: Urethra) BILATERAL URETERAL STENT CHANGE (Bilateral: Urethra) Location: [facility] OR [address] [place] [address] Operating Room Surgeons: Joan Patel MD Chief [...] days. Denies prior problems with anesthesia. No H problems with anesthesia Denies c/o chest pain, dizziness, sob, syncope, palpitations, tachycardia, cough, wheezing, nvd, fever or chills Wheelchair bound (paraplegia)- No chest pain or sob with normal activity(upper body activity) Do you have a history of chronic opioid use? oxycodone per pain management ? Denies history of SD, CAD, CHF, CVA, seizures, asthma/copd, WEST, PE/DVT [...] date: Type 2 diabetes mellitus without complication ([facility]/HCC) ([facility]) No date: Urinary calculus, unspecified No date: UTI (urinary tract infection) Past Surgical History: Past Surgical History: No date: ANKLE SURGERY; Right Comment: He has a titanium plate to the right ankle No date: KNEE SURGERY; Left Comment: ACL No date: KNEE SURGERY; Left Comment: removal of screw 10/24/2020: LAMINECTOMY; Left Comment: LEFT BILATERAL L2-3-4-5 DECOMPRESSION performed by Opal Vigil MD at [facility] OR No date: ORTHOPEDIC SURGERY; Right Comment: [...] QT Interval 426 QTC Interval 477 P [place] 10 QRS [place] 28 T Wave [place] 28 [place] Interval 159 Impression Sinus rhythm Electronically Signed On 04-20-2024 15:22:00 EDT by Jax Wiggins ECHO and EF:None on file METS __Wheelchair bound (paraplegia)- No chest pain or sob with normal activity (upper body activities) Electronically signed by: Radha Lucas APRN - [employer]OU[employer]ER Date: 04/27/2024 at 3:18 PM [place] Phone: 05-05-2024 History and physical note Images [...] Source Note - Radha Lucas, JOE - [employer] - 04/27/2024 2:00 PM EDT Images from the original note were not included. Comprehensive Pre Surgical History and Physical ? Name: Anmol Reynolds : 1960 (Age-63 y.o.) Date of Service: Pt seen/examined on 04/27/2024 Procedure Information Date/Time: 05/05/24 1230 Procedures: CYSTOSCOPY (Urethra) - 120 MINS POSSIBLE CYSTOLITHOLAPAXY (Urethra) BILATERAL URETEROSCOPY ASTRID LASER LITHOTRIPSY (Bilateral: Urethra) BILATERAL URETERAL STENT CHANGE (Bilateral: Urethra) Location: [facility] OR [address] [place] [address] Operating Room Surgeons: Joan Patel MD Chief [...] days. Denies prior problems with anesthesia. No [facility] problems with anesthesia Denies c/o chest pain, dizziness, sob, syncope, palpitations, tachycardia, cough, wheezing, nvd, fever or chills Wheelchair bound (paraplegia)- No chest pain or sob with normal activity(upper body activity) Do you have a history of chronic opioid use? oxycodone per pain management ? Denies history of SD, CAD, CHF, CVA, seizures, asthma/copd, WEST, PE/DVT [...] date: Type 2 diabetes mellitus without complication ([facility]/HCC) ([facility]) No date: Urinary calculus, unspecified No date: UTI (urinary tract infection) Past Surgical History: Past Surgical History: No date: ANKLE SURGERY; Right Comment: He has a titanium plate to the right ankle No date: KNEE SURGERY; Left Comment: ACL No date: KNEE SURGERY; Left Comment: removal of screw 10/24/2020: LAMINECTOMY; Left Comment: LEFT BILATERAL L2-3-4-5 DECOMPRESSION performed by Opal Vigil MD at [facility] OR No date: ORTHOPEDIC SURGERY; Right Comment: [...] QT Interval 426 QTC Interval 477 P [place] 10 QRS [place] 28 T Wave [place] 28 [place] Interval 159 Impression Sinus rhythm Electronically Signed On 04-20-2024 15:22:00 EDT by Jax Wiggins ECHO and EF:None on file METS __Wheelchair bound (paraplegia)- No chest pain or sob with normal activity (upper body activities) Electronically signed by: Radha Lucas APRN - [employer]ALER Date: 04/27/2024 at 3:18 PM documented in this encounter [facility] 05-05-2024 Note H&P Update Patient's History and Physical from 04/27/24 was reviewed. Patient examined. There has been no change. Impression: bilateral ureteral calculus bladder calculus Plan: : cp laser bladder stone bilateral ureteroscopy laser lithotripsy bilateral stent change : Electronically signed by Joan Patel MD 05/05/24 1:20 PM [facility] 05-05-2024 Note Formatting of this n ote might be different from the original. Spoke with the nurse Aguilar from the facility pt came from. The nurse confirmed that pt did not have anything to eat after midnight and only sips of water with morning meds. See MAR for meds. [facility] 05-05-2024 Note Formatting of this n ote might be different from the original. Spoke with the nurse Aguilar from the facility pt came from. The nurse confirmed that pt did not have anything to eat after midnight and only sips of water with morning meds. See MAR for meds. T [facility] 05-04-2024 Telephone encounter Note R/S patient for 06/14 at 8:30a, also contacted [facility] to confirm transportation [facility] 05-04-2024 Miscellaneous Notes R/S patient for 06/14 at 8:30a, also contacted [facility] to confirm transportation Name of Caller: Doug Contact Reason for Appointment: Reschedule 04/21/24 appointment Office Name: Interventional Pain Management documented in this encounter [facility] 05-04-2024 Telephone encounter Note Name of Caller: Doug Contact Reason for Appointment: Reschedule 04/21/24 appointment Office Name: Interventional Pain Management [facility] 04-27-2024 Telephone encounter Note Call placed to pt. No answer no VM set up. No return calls from [facility]. Pt is scheduled for PAT today. [facility] 04-27-2024 Miscellaneous Notes Call placed to pt. No answer no VM set up. No return calls from [facility]. Pt is scheduled for PAT today. Call placed to pt to advise of SX information. No answer, unable to LVM. If pt calls back into office please advise of below information or transfer to me. Doctor: JORGE OLIVA (arrive 15 min early): 04/27 @2pm [facility] PAT instructions: Please bring photo ID, insurance [...] DIAGNOSIS: Bladder calculus, bilateral ureteral stones FACILITY: [facility] or [facility] DETAILS: OUTPT ANESTHESIA: GENERAL TIME REQUESTED: 2hr DATE REQUESTED: Must be minimum of 2 weeks from today due to infection SURGERY ORDERS: Already placed by Joe Hammer NP on 04/15/2024 POST OP FOLLOW UP: cysto stent removal 2 wks documented in this encounter [facility] 04-26-2024 Telephone encounter Note Called pt and discussed his MRI L spine results. He has [facility] re[facility] follow up scheduled. Recommended Spine Surgery opinion. No change in clinical condition from last visit. Vaishali Pierre DO [facility] 04-26-2024 Miscellaneous Notes Called pt and discussed his MRI L spine results. He has [facility] rehab follow up scheduled. Recommended Spine Surgery opinion. No change in clinical condition from last visit. Vaishali Pierre DO Called pt again. Staff at the [facility] stated he was unable to come to the phone and asked for call back later in the day. Vaishali Pierre DO Called pt and reached staff, but he was unable to come to the phone. Will try again tomorrow. Vaishali Pierre DO Called pt on his room number but unable to reach him or leave a message. I called nursing staff at the [facility] where he lives and was able to leave a message with nursing regarding his MRI findings and that I would like to speak with him and recommendations to schedule visit with [facility] and spine surgery. Vaishali Pierre DO Telephoned [facility] pt at dinner and hospital receptionist states she cannot pull pt away from dinner. Called pt regarding his MRI, which showed: IMPRESSION: Acute-subacute sacral insufficiency fracture at S2. Postoperative and degenerative changes of the lumbar spine with linear granulation tissue at L2-3 and tethering of the cauda equina suggesting sequelae of chronic arachnoiditis. No evidence of osteomyelitis discitis or epidural abscess. He was currently out of the half-way where he lives, but I was able [...] Vaishali Pierre DO documented in this encounter [facility] 04-26-2024 Telephone encounter Note Called pt again. Staff at the SNF stated he was unable to come to the phone and asked for call back later in the day. Vaishali Pierre DO [facility] 04-25-2024 Telephone encounter Note Called pt and reached staff, but he was unable to come to the phone. Will try again tomorrow. Vaishali Pierre DO [facility] 04-25-2024 Telephone encounter Note Call placed to pt to advise of SX information. No answer, unable to LVM. If pt calls back into office please advise of below information or transfer to me. Doctor: JORGE OLIVA (arrive 15 min early): 04/27 @2pm [facility] PAT instructions: Please bring photo ID, insurance [...] counter vitamins 3 days prior to surgery [facility] 04-25-2024 Miscellaneous Notes Call placed to pt to advise of SX information. No answer, unable to LVM. If pt calls back into office please advise of below information or transfer to me. Doctor: JORGE OLIVA (arrive 15 min early): 04/27 @2pm [facility] PAT instructions: Please bring photo ID, insurance [...] DIAGNOSIS: Bladder calculus, bilateral ureteral stones FACILITY: [facility] or [facility] DETAILS: OUTPT ANESTHESIA: GENERAL TIME REQUESTED: 2hr DATE REQUESTED: Must be minimum of 2 weeks from today due to infection SURGERY ORDERS: Already placed by Joe Hammer NP on 04/15/2024 POST OP FOLLOW UP: cysto stent removal 2 wks documented in this encounter [facility] 04-21-2024 Telephone encounter Note Call placed to pt but no answer at this time. Pt does not have VM set up so unable to LVM. No MyChart set up. Will continue to reach out to pt. [facility] 04-20-2024 Miscellaneous Notes Dc to [facility] this evening at 6:30. [facility] messaged the facility with dc time and left a voicemail message for patients brother with dc time and arrangements. Re faxed opat to [phone]. Discharge med list transmitted to return back to [facility] via [facility] per TCC request. Images from the original note were not included. Care Management Progress Note Chart reviewed. Patient remains on . Discussed patient in rounds. Noted discharge order. Noted patient received PICC placement today. Faxed opat for Ertapenem IV to [phone]. BEHAVIORAL CONSULTANT tasked to send final updates to [facility]. SW tasked to arrange transportation today when ready. Patient will need covid test resulted before leaving hospital. TCC section of ADELINE completed. DC plan: return to [facility], no auth needed. Bed hold. Discharge Milestones and Delays Expected date/time: 04/20/2024 Medically ready since: 04/20/2024 Disposition: Detention Facility Transport status: No current request Discharge Milestones Place discharge order Complete med reconciliation Case mgmt discharge readiness Clinical Stability Diagnostic Workup Imaging Results Patient Education Complete Expected Discharge History Expected Date/Time Set By Reviewed At 04/20/2024 Otis Mckenzie DO 04/20/2024 11:42 AM 04/18- From [facility]. 04/20- Getting a picc today for IV antibiotics, [facility]." 04/20/2024 LINDSAY Gallardo 04/20/2024 9:34 AM 04/20/2024 LINDSAY Gallardo 04/19/2024 9:13 AM 04/18- From [facility]." 04/20/2024 Chrissie Rodrigues RN 04/19/2024 7:55 AM 04/20/2024 Chrissie Rodrigues RN 04/18/2024 7:54 AM 04/17/2024 Isabel Kirby RN 04/15/2024 9:16 AM 04/16/2024 Ene Crawley MD 04/14/2024 10:37 PM 04/16/2024 Ene Crawley MD 04/14/2024 7:38 PM Length of Stay [...] Sent updated notes to return back to [facility] via [facility] per [facility] request. Await review and response regarding ability [...] chronic santana in place. Pt is from [facility]. Tasked BEHAVIORAL CONSULTANT to send updated clinicals to facility. Pt is a bedhold, no auth required to return. Will however need a covid test before returning to facility. Discharge plan is [facility] when medically ready. manager services to follow and assist as needed. Discharge Milestones and Delays Expected date/time: 04/20/[address] discharge order Complete med reconciliation Case mgmt discharge readiness Clinical Stability Diagnostic Workup Patient Education Complete Expected Discharge History Expected Date/Time Set By Reviewed At 04/20/2024 Chrissie Rodrigues RN 04/18/2024 7:54 AM 04/17/2024 Isabel Kiryb RN 04/15/2024 9:16 AM 04/16/2024 Ene Crawley MD 04/14/2024 10:37 PM 04/16/2024 Ene Crawley MD 04/14/2024 7:38 PM Length of Stay [...] Source of Information: Patient Name/Contact Information: Ronald Reynolds [phone] brother and daughter Sumi Reynolds Cognition/Language: WFL - Within Functional Limits Permission given to speak with patient major account representative/caregiver as indicated: Yes Confirmation of Payer with patient/family: Yes Payer Name: medicare and medicaid : No Confirmation of Primary Care Physician: Confirmed PCP Name: house doctor at [facility]-Dr. Dupont Seen in last 2 years?: Yes Primary Caregiver: Other (Comment) If assistance needed, confirmed caregiver ready, willing and able to care for patient at discharge: Yes Confirmed with: staff at [facility] Living Arrangements Current Residence: (ecf) Number of Floors 1 Number of Entry Steps: (level) Bed/Bath Levels: Both first floor Facility: Halfway[facility] Care Facility Name: [facility] Plan to Return: Yes Lives with: (ecf) Support Systems: Family members, Comments (Other) (facility) Activities of Daily Living Ambulation: Total Care (everett lift to wc) Bathing/Dressing: Total Care Elimination/Continence/Toileting: Total Care Feeding: Assistance Who Assists with Activities of Daily Living: half-way staff Instrumental Activities of Daily Living Prescription Coverage: Yes Pharmacy Used: [facility] Medication Management: Medication dispenser Who assists with medication securing and setup[facility] Transportation/Shopping: Assistance Provider Transportation/Shopping Assistance Provider Name: facility Transportation Mode: Payer provided transport service Needs Assistance with Transportation at Discharge: Yes Meal Preparation: Assistance Provider Meal Prep Assistance Provider Name: facility Laundry/Cleaning: Assistance Provider Laundry/Cleaning Assistance Provider Name: facility Finances/Bill Paying: Assistance Provider Finances/Bill Payer [facility] Communication: Independent, Emergency Call System Types of Care Services/Equipment Utilized Care Services: Dialysis Type: NA Durable Medical Equipment: Wheelchair (standard or power) Patient's Goal/Discharge Plan Patient expects to be discharged to: return to [facility] Discharge Planning Actions: Continue to follow Patient's Choice Rights and [employer] and Collaborative Relationships Disclosed as Indicated for Post-Acute Care: Yes Interdisciplinary Team Engagement: Social Work Referral for: Additional Information: Inpatient status from [facility] with sepsis. Urology consulted due to bilateral [...] of paraplegia and states has been at [facility] for a year and wishes to return upon discharge. Tasked [facility] to place referral in [facility]. He is everett lift to at facility. Will need to monitor for antibiotic needs upon discharge. Did call facility to obtain daughter's phone number for patient and updated primary care nurse with this information. .. Isabel Kirby RN Referral placed to return back to [facility] via [facility] per TCC request. Await review and [...] right 7 x 26 double-J stent Santana-22 Czech coud catheter Specimen: Complications None; patient tolerated the procedure well. Findings: He is a 63-year-old paraplegic half-way resident with a chronic Santana catheter. He [...] 6 x 26 stent was passed. 22 Czech coud catheter was placed to straight drain. [...] bladder. The bladder was left full. 22 Czech coud catheter was placed into the bladder. He was awakened and transferred to the recovery room. ICU was consulted for admission due to the hypotension and need for pressors during the case as well as the lactic acidosis. Joan Patel MD 04/14/24 10:49 PM documented in this encounter [facility] 04-20-2024 Hospital course Narrative Images from the original note were not included. Hospitalist Discharge Summary Anmol Franco Gail : 1960 Admit date: 04/14/2024 Discharge date: [...] CONSULT TO INFECTIOUS DISEASES IP CONSULT TO HOME THEATER EXPERT Discharge Instructions: Diet: Adult diet Regular; 5 carb choices (75 gm/meal) Activity: as tolerated Recommended Outpatient Tests: Disposition: Patient discharged in stable condition to SNF LABS: CBC: Recent Labs 04/18/2471104/19/2442704/20/24358 WBC 8.4 9.2 6.4 RBC 3.95* 3.79* 3.70* HGB 12.1* 11.6* 11.3* HCT 36.6* 35.0* 34.8* MCV 92.7 92.3 94.1 RDW 15.0 14.8 14.8 PLT 79* 88* 121* BMP: Recent Labs 04/18/24 0704/19/2442704/20/24 035 NA 140 138 138 K 3.1* 3.5 3.8 CL 105 107 108* CO2 27 26 23 BUN 15 14 14 CREATININE 0.51* 0.44* 0.44* GLUCOSE 74 153* 284* CALCIUM 7.8* 7.9* 7.6* ANIONGAP 7 5 6 LIVER PROFILE: Recent Labs 04/18/2471104/19/2442704/20/24 035 AST 18 19 19 ALT 18 16 [...] Complexity: follow up within 7-14 calendar days (77097) [x] Severe Complexity: follow up within 7 calendar days (75919) Follow up Testing, Pending results or Referrals [...] frame. Signed: Otis Mckenzie DO [facility] 04/20/2024, 11:42 AM Total time Spent on Discharge: 32 minutes documented in this encounter [facility] 04-20-2024 Hospital Discharge instructions Faby Maxwell RN [...] Reynolds Mobile Relation: Sibling Secondary Emergency Contact: SMUI REYNOLDS Mobile Relation: Daughter Past Surgical History: Past Surgical History: Procedure Laterality Date ANKLE SURGERY Right He has a titanium plate to the right ankle KNEE SURGERY ACL LAMINECTOMY Left 10/24/2020 LEFT BILATERAL L2-3-4-5 DECOMPRESSION performed by Opal Vigil MD at [facility] OR ORTHOPEDIC SURGERY PLACE URETAL STENT PERC [...] cyst without abscess Diabetes mellitus without complication ([facility]/HCC) (HCC) Lumbar radiculopathy Abnormal finding on EKG [...] assistance Toileting Total assistance Feeding Minimal assistance Wire Charger Minimal assistance Med Delivery yes Wound Care Documentation and Therapy: Wound/Incision 04/14/24 Pressure Injury Sacrum (Active) Site Assessment Unable to assess 04/19/242039 [place]-Wound Assessment Clean;Dry;Intact 04/19/242039 Drainage Description Red 04/19/24 165 Odor None 04/18/24 0328 Drainage Amount Scant 04/19/241650 Treatments Cleansed;Zinc - oxide paste 04/19/241650 Primary Dressing Foam 04/19/241650 Dressing Status Clean, dry & intact 04/19/242039 Number of days: 5 Wound/Incision 04/14/24 Foot Anterior;Right (Active) Wound Image 04/14/242257 Number of days: 5 Wound/Incision 04/14/24 Foot Anterior;Left (Active) Wound Image 04/14/24 225 Number of days: 5 Elimination: Continence: Bowel: [...] Date: 04-14-2024 Discharging to Facility/ Agency Name: [facility] Address: [address] [place] [address] Dialysis Facility (if applicable) Name: Address: Dialysis Schedule: Phone: Fax: Motion Picture Operator/Regulator Operator signature: {E-signature:64561} ICIAN SECTION Name: Anmol Reynolds Prognosis: {Rehab Prognosis:46930} Condition at Discharge: {Patient Condition:71500} Rehab Potential (if transferring to Rehab): excellent Recommended Labs or Other Treatments After Discharge: blood cultures to be obtained on 05/06/24 The individual is being admitted to a nursing facility directly from an [facility] or a unit of a [facility] that is not operated by or licensed by [facility] under section 5119.14 or 5160-3-15.1 5 The individual requires the level of services provided by a nursing facility for the condition for which he or she was treated in the hospital and, Physician Certification: I certify the above information and transfer of Anmol Reynolds is necessary for the continuing treatment of the diagnosis listed and that he requires longterm facility for less than 30 days. Update Admission H&P: No change in H&P PHYSICIAN SIGNATURE: documented in this encounter [facility] 04-20-2024 Nurse Note Patient tolerated procedure well. Transferring back to nursing floor. Patient arrived from [facility], AMOL Enriquez was in to speak with the patient regarding PICC, consent was obtained. Patient was placed supine on exam table prepped and draped in sterile fashion. Telemetry monitors placed, vitals being monitored. documented in this encounter [facility] 04-19-2024 History of Present illness Narrative Nutrition [...] Fluid Accumulation: Mild Extremities (+2 kenroy LE) Commercial Baking Teacher Strength: Not Performed Nutrition Assessment: per MD [...] On: Kcal/kg Weight Used for Energy Requirements: [place] Weight for Energy Calculation (kg): 82 kg Total Energy Requirements (kcals/day): 8489-9809 (28-30) Weight Used for Protein Requirements: [place] Weight in Kg Used for Protein Requirements: [...] (183 lb) % Weight Change (Calculated): 12.2 [place] Body Weight (lbs) (Calculated): 196 lbs [place] Body Weight (Kg) (Calculated): 89 kg % [place] Body Weight (Calculated): 104.7 % BMI (kg/m2) (Calculated): 26.5 Weight Adjustment For: Paraplegia % Weight Adjustment: 7.5 - Paraplegia Total Adjusted Percentage (Calculated): 7.5 Adjusted [place] Body Weight (lbs) (Calculated): 181.3 lbs Adjusted [place] Body Weight (kg) (Calculated): 82.41 kg Adjusted [...] Continue current diet Zonia Dumont RD Contact: *[phone] or via Secure Chat Images from the original note were not included. [facility] - Infectious Diseases Attending Progress Note [...] #1 - Assess for effectiveness of treatment [[id number]] Blood, Venous Preliminary result Component Value Blood Culture Blood culture incubation started P 04/16/2024 0654 04/16/2024 1101 Blood culture Site #2 - Assess for effectiveness of treatment [[id number]] Blood, Venous Preliminary result Component Value Blood Culture Blood culture incubation started P 04/15/2024 1713 04/15/2024 2208 MRSA by PCR [[id number]] (Abnormal) ESwab from Nasal Final result Component Value Staphylococcus aureus Detected Abnormal mecA gene Not Detected 04/15/2024 0103 04/16/2024 1135 Urine culture [[id number]] (Abnormal) Urine, Clean Catch Preliminary result Component Value Urine Culture Normal urogenital gosia present P 50,000-90,000 CFU/mL Providencia stuartii Abnormal P 04/14/2024 1631 04/16/2024 1204 Blood culture Site #1 - Suspected Infection [[id number]] (Abnormal) Blood, Venous Preliminary result Component Value Blood Culture Proteus mirabilis Panic P Providencia stuartii Panic P Morganella morganii Panic P 04/14/2024 1631 04/16/2024 1204 Blood culture Site #2 - Suspected Infection [[id number]] (Abnormal) Blood, Venous Preliminary result Component Value Blood Culture Morganella morganii Panic P For identification and/or sensitivity, refer to culture collected on: 04/14/24 at 16:31, [id number]. This is an edited result. Previous organism was Gram-negative bacilli on 04/15/2024 at 0835 EDT. 04/14/2024 1631 04/15/2024 0828 Blood Culture Identification - Anaerobic [[id number]] (Abnormal) Blood, Venous Final result Component Value Proteus species Detected Abnormal Lines: PIV Radiography/Echo/Other: Procedure Component Value Units Date/Time FL pyelogram retrograde [[id number]] Resulted: 04/14/242216 Order Status: Completed Updated: 04/14/242216 Narrative: There is no interpretation needed for this exam. CT abdomen pelvis wo IV contrast [[id number]] Collected: 04/14/241928 Order Status: Completed Updated: 04/14/241938 Narrative: Patient Name: ANMOL REYNOLDS : 1960 Exam Date/Time: 04/14/2024 19:28 Procedure: CT ABDOMEN PELVIS WO IV CONTRAST Ordering Provider: EMS, , ENE Reason For Exam: Sepsis CT ABDOMEN AND [...] 7:37 PM EDT XR chest 1 view [[id number]] Collected: 04/14/241650 Order Status: Completed Updated: 04/14/241652 Narrative: Patient Name: ANMOL REYNOLDS : 1960 Exam Date/Time: 04/14/2024 16:39 Procedure: XR CHEST 1 VIEW Ordering Provider: CHRISSIE, ENE Reason For Exam: sepsis INDICATION: Sepsis. VIEWS: [...] no fungi. Discontinue fluconazole. Continue meropenem through [facility], then, tomorrow change to ertapenem (1st dose [...] accounting for open encounter. Hospitalist Progress Note 04/19/20246995790-6888: Please page me ([phone]) for patient care issues. [phone]: Please page [facility] Hospitalist for any issues. Subjective: Admit Date: [...] Sciatica Type 2 diabetes mellitus without complication ([facility]/HCC) ([facility]) LABS: CBC: Recent Labs 04/17/24 0342 04/18/24 0712 04/19/24 0428 WBC 7.9 8.4 9.2 RBC 3.83* 3.95* 3.79* HGB 11.5* 12.1* 11.6* HCT 35.4* 36.6* 35.0* MCV 92.4 92.7 92.3 RDW 14.9 15.0 14.8 PLT 77* 79* 88* BMP: Recent Labs 04/17/2434104/18/2471104/19/24 0428 NA 135 140 138 K 3.2* 3.1* 3.5 CL 107 105 107 CO2 23 27 26 BUN 23* 15 14 CREATININE 0.58* 0.51* 0.44* GLUCOSE 144* 74 153* CALCIUM 7.9* 7.8* 7.9* ANIONGAP 5 7 5 LIVER PROFILE: Recent Labs 04/17/2434104/18/2471104/19/24 0428 AST 22 18 19 ALT 22 18 [...] Emergency Contact: SUMI REYNOLDS Mobile Relation: Daughter Otis HoangDO connie Division of Hospitalist Medicine Inpatient Medical Services/[facility] PAGER: Epic chat Hospitalist Progress Note 04/18/2024 [phone]: Please page co ([phone]) for patient care issues. [phone]: Please page [facility] night Hospitalist for any issues. Subjective: Admit Date: 04/14/2024 PCP: AMBROSIO MONROY DO Room#: B2-254/B2-254 A Interval History: No overnight issues. Denies chest pain or sob. No abdominal pain, nausea, vomiting. No fevers or chills. Adult diet Regular; 5 carb choices (75 gm/meal) @PDPK6RHYRYH@ 24HR INTAKE/OUTPUT: Intake/Output Summary (Last 24 hours) at 04/18/2024 1214 Last data filed at 04/18/2024 0500 Gross per 24 hour Intake 700 ml Output 3850 ml Net -3150 ml Past Medical History: Past Medical History: Diagnosis Date Abscess, perineum Chronic back pain Hip sprain Hyperlipidemia Hypertension Neuropathy Osteoarthritis Sciatica Type 2 diabetes mellitus without complication ([facility]/HCC) ([facility]) LABS: CBC: Recent Labs 04/16/24 0504/17/24 03404/18/24711 WBC 11.9* 7.9 8.4 RBC 3.91* 3.83* 3.95* HGB 12.0* 11.5* 12.1* HCT 37.2* 35.4* 36.6* MCV 95.1 92.4 92.7 RDW 15.2* 14.9 15.0 PLT 76* 77* 79* BMP: Recent Labs 04/16/24 0504/17/24 03404/18/24711 NA 137 135 140 K 4.3 3.2* 3.1* CL 105 107 105 CO2 25 23 27 BUN 30* 23* 15 CREATININE 0.70 0.58* 0.51* GLUCOSE 315* 144* 74 CALCIUM 8.2* 7.9* 7.8* ANIONGAP 6 5 7 LIVER PROFILE: Recent Labs 04/16/24 0515 04/17/24 0342 04/18/24 0712 AST 37 22 18 ALT 26 22 [...] MD Division of Hospitalist Medicine Inpatient Medical Services/[facility] PAGER: Epic chat Images from the original note were not included. [facility] - Infectious Diseases Attending Progress Note [...] place, and time. Labs: Recent Labs 04/14/24 23104/15/2440604/16/24 0515 04/17/24 0342 NA -- 135 137 135 K [...] the last 72 hours. 04/16/2024 0654 04/16/2024 [facility] Blood culture Site #1 - Assess for effectiveness of treatment [[id number]] Blood, Venous Preliminary result Component Value Blood Culture Blood culture incubation started P 04/16/2024 0654 04/16/2024 [facility] Blood culture Site #2 - Assess for effectiveness of treatment [[id number]] Blood, Venous Preliminary result Component Value Blood Culture Blood culture incubation started P 04/15/2024 1713 04/15/2024 2208 MRSA by PCR [[id number]] (Abnormal) ESwab from Nasal Final result Component Value Staphylococcus aureus Detected Abnormal mecA gene Not Detected 04/15/2024 0103 04/16/2024 1135 Urine culture [[id number]] (Abnormal) Urine, Clean Catch Preliminary result Component Value Urine Culture Normal urogenital gosia present P 50,000-90,000 CFU/mL Providencia stuartii Abnormal P 04/14/2024 1631 04/16/2024 1204 Blood culture Site #1 - Suspected Infection [[id number]] (Abnormal) Blood, Venous Preliminary result Component Value Blood Culture Proteus mirabilis Panic P Providencia stuartii Panic P Morganella morganii Panic P 04/14/2024 1631 04/16/2024 1204 Blood culture Site #2 - Suspected Infection [[id number]] (Abnormal) Blood, Venous Preliminary result Component Value Blood Culture Morganella morganii Panic P For identification and/or sensitivity, refer to culture collected on: 04/14/24 at 16:31, [id number]. This is an edited result. Previous organism was Gram-negative bacilli on 04/15/2024 at 0835 EDT. 04/14/2024 1631 04/15/2024 0828 Blood Culture Identification - Anaerobic [[id number]] (Abnormal) Blood, Venous Final result Component Value Proteus species Detected Abnormal Lines: PIV Radiography/Echo/Other: Procedure Component Value Units Date/Time FL pyelogram retrograde [[id number]] Resulted: 04/14/242216 Order Status: Completed Updated: 04/14/242216 Narrative: There is no interpretation needed for this exam. CT abdomen pelvis wo IV contrast [[id number]] Collected: 04/14/241928 Order Status: Completed Updated: 04/14/241938 Narrative: Patient Name: ANMOL REYNOLDS : 1960 Exam Date/Time: 04/14/2024 19:28 Procedure: CT ABDOMEN PELVIS WO IV CONTRAST Ordering Provider: [facility] Reason For Exam: Sepsis CT [...] 7:37 PM EDT XR chest 1 view [[id number]] Collected: 04/14/241650 Order Status: Completed Updated: 04/14/241652 Narrative: Patient Name: ANMOL REYNOLDS : 1960 Exam Date/Time: 04/14/2024 16:39 Procedure: XR CHEST 1 VIEW Ordering Provider: EMS, [place] Reason For Exam: sepsis INDICATION: Sepsis. VIEWS: [...] accounting for open encounter. Hospitalist Progress Note 04/17/20246993262-4424: Please page me ([phone]) for patient care issues. [phone]: Please page [facility] Hospitalist for any issues. Subjective: Admit Date: 04/14/2024 PCP: AMBROSIO MONROY DO Room#: 222-04/222-04 A Interval History: No overnight issues. Denies chest pain or sob. No abdominal pain, nausea, vomiting. No fevers or chills. Adult diet Regular; 5 carb choices (75 gm/meal) @[id number]@ 24HR INTAKE/OUTPUT: Intake/Output Summary (Last 24 hours) at 04/17/2024 0846 Last data filed at 04/17/2024 0621 Gross per 24 hour Intake 1876 ml Output 2535 ml Net -659 ml Past Medical History: Past Medical History: Diagnosis Date Abscess, perineum Chronic back pain Hip sprain Hyperlipidemia Hypertension Neuropathy Osteoarthritis Sciatica Type 2 diabetes mellitus without complication ([facility]) ([facility]) LABS: CBC: Recent Labs 04/15/2440604/16/24 0504/17/24 034 WBC 11.2* 11.9* 7.9 RBC 3.85* 3.91* 3.83* HGB 11.9* 12.0* 11.5* HCT 36.2* 37.2* 35.4* MCV 94.0 95.1 92.4 RDW 14.9 15.2* 14.9 PLT 107* 76* 77* BMP: Recent Labs 04/15/2440604/16/24 0515 04/17/24341 NA 135 137 135 K 3.6 4.3 3.2* CL 105 105 107 CO2 19* 25 23 BUN 25* 30* 23* CREATININE 1.01 0.70 0.58* GLUCOSE 286* 315* 144* CALCIUM 7.9* 8.2* 7.9* ANIONGAP 10 6 5 LIVER PROFILE: Recent Labs 04/15/24 0407 04/16/24 0515 04/17/24 0342 AST 36 37 22 ALT 34 26 [...] MD Division of Hospitalist Medicine Inpatient Medical Services/[facility] PAGER: Epic chat Images from the original note were not included. [facility] - Infectious Diseases Attending Progress Note [...] #1 - Assess for effectiveness of treatment [[id number]] Blood, Venous Preliminary result Component Value Blood Culture Blood culture incubation started P 04/16/2024 0654 04/16/2024 1101 Blood culture Site #2 - Assess for effectiveness of treatment [[id number]] Blood, Venous Preliminary result Component Value Blood Culture Blood culture incubation started P 04/15/2024 1713 04/15/2024 2208 MRSA by PCR [[id number]] (Abnormal) ESwab from Nasal Final result Component Value Staphylococcus aureus Detected Abnormal mecA gene Not Detected 04/15/2024 0103 04/16/2024 1135 Urine culture [[id number]] (Abnormal) Urine, Clean Catch Preliminary result Component Value Urine Culture Normal urogenital gosia present P 50,000-90,000 CFU/mL Providencia stuartii Abnormal P 04/14/2024 1631 04/16/2024 1204 Blood culture Site #1 - Suspected Infection [[id number]] (Abnormal) Blood, Venous Preliminary result Component Value Blood Culture Proteus mirabilis Panic P Providencia stuartii Panic P Morganella morganii Panic P 04/14/2024 1631 04/16/2024 1204 Blood culture Site #2 - Suspected Infection [[id number]] (Abnormal) Blood, Venous Preliminary result Component Value Blood Culture Morganella morganii Panic P For identification and/or sensitivity, refer to culture collected on: 04/14/24 at 16:31, [id number]. This is an edited result. Previous organism was Gram-negative bacilli on 04/15/2024 at 0835 EDT. 04/14/2024 1631 04/15/2024 0828 Blood Culture Identification - Anaerobic [[id number]] (Abnormal) Blood, Venous Final result Component Value Proteus species Detected Abnormal Lines: PIV Radiography/Echo/Other: Procedure Component Value Units Date/Time FL pyelogram retrograde [[id number]] Resulted: 04/14/242216 Order Status: Completed Updated: 04/14/242216 Narrative: There is no interpretation needed for this exam. CT abdomen pelvis wo IV contrast [[id number]] Collected: 04/14/241928 Order Status: Completed Updated: 04/14/241938 Narrative: [facility]OL[facility] 1960 [id number] Exam Date/Time: 04/14/2024 19:28 Procedure: CT ABDOMEN PELVIS WO IV CONTRAST Ordering Provider: [facility] Reason For Exam: Sepsis CT [...] 7:37 PM EDT XR chest 1 view [[id number]] Collected: 04/14/241650 Order Status: Completed Updated: 04/14/241652 Narrative: Patient Name: ANMOL REYNOLDS : 1960 [id number] Exam Date/Time: 04/14/2024 16:39 Procedure: XR CHEST 1 VIEW Ordering Provider: [facility] Reason For Exam: sepsis INDICATION: Sepsis. VIEWS: [...] original note were not included. OCCUPATIONAL THERAPY [facility]'s Name/MRN: Anmol Reynolds ([id number]) Date: 04/16/2024 OT evaluation and treat orders received. PT spoke to patient at bedside. Pt is from [facility] and is paraplegic with everett lift to electric w/c. Pt also requires assist with ADLs. Pt states receives very minimal therapy services at [facility]. Pt has no current acute OT needs and is at baseline LOF. Rec return to [facility]. Chelita Blanc OT ICU Progress Note Name: Anmol Reynolds : 1960(63 y.o.) Date: 04/16/24 Team: MICU Chief Complaint: obstructed santana catheter, septic shock Subjective: Hospital Summary: 63 yoM with history of paraplegia after lumbar surgeries, [facility] resident, history of recurrent UTIs in [...] kg/m . I/O: 04/15 0700 - 04/16 0659 In: 1836.3 [I.V.:86.3] Out: 1585 [Urine:1585] Ventilator: [...] Normal [] Scar/Lesion/Mass Inspection of teeth/lips/gums Dentition: [x][place] Teeth []Dentures Lips/Gums: [x]Intact []Lesion Present Mucosa: [][place] []Moist [x]Dry Neck: External Appearance Overall Appearance: [...] last 24 hours- BMP: Recent Labs 04/14/24 16004/15/2440604/16/24 0515 NA 137 135 137 K 3.9 3.6 4.3 CL 102 105 105 CO2 19* 19* 25 BUN 21* 25* 30* CREATININE 1.24 1.01 0.70 CALCIUM 9.0 7.9* 8.2* MG -- 1.7 2.0 PHOS -- 3.3 2.7 LFTs: Recent Labs 04/14/24 1603 04/14/24 19504/15/24 0407 04/16/24 0515 AST 25 -- 36 37 ALT 22 -- 34 26 PROT 7.8 -- 5.5* 6.0* ALBUMIN 4.0 -- 2.6* 2.8* BILITOT 1.4* -- 1.1 0.9 ALKPHOS 167* -- 168* 130* LIPASE 12* <10* -- -- Glucose: Recent Labs 04/14/24 1603 04/14/24 2212 04/14/24 2220 04/14/24 2332 04/15/24 0407 04/15/24 0608 04/15/24 1229 04/15/24 1732 07201904/16/24 0515 04/16/24 0803 GLUCOSE 259* -- -- [...] 14.9 15.2* ABGs: Recent Labs 04/14/24 1730 [id number] Room Air Lactic Acid: Recent Labs 04/14/24231704/15/2440604/15/24 [...] creatinine, and vancomycin levels interfaced automatically to [employer] and data has been analyzed and interpreted. [...] assess Fluid Accumulation: Mild Extremities (+2 ble) Commercial Baking Teacher Strength: Not Performed Nutrition Assessment: per MD-pISTORY OF PRESENT ILLNESS: Anmol is a 63 y.o. male with , recurrent UTI at [facility] who presented to the ED today [...] WBC 1.5, er case manger-npatient status from [facility] with sepsis. Urology consulted due to bilateral [...] of paraplegia and states has been at [facility] for a year and wishes to return [...] On: Kcal/kg Weight Used for Energy Requirements: [place] Weight for Energy Calculation (kg): 82.41 kg Total Energy Requirements (kcals/day): 28-30 or 2307- 24 72 Weight Used for Protein Requirements: [place] Weight in Kg Used for Protein Requirements: 82.41 kg Estimated Total Protein (g/day): 1-1.5 or 82-124 Estimated Daily Total Fluid (ml/day): or per MD Nutrition Related Findings: v=ca 7,9, alb 2.6, corrected ca 8.78 , glu 286, /12 hbaic 6.3, +2 ble, jack 16 Wound [...] (183 lb) % Weight Change (Calculated): 12.2 [place] Body Weight (lbs) (Calculated): 196 lbs [place] Body Weight (Kg) (Calculated): 89 kg % [place] Body Weight (Calculated): 104.7 % BMI (kg/m2) (Calculated): 25.7 Weight Adjustment For: Paraplegia % Weight Adjustment: 7.5 - Paraplegia Total Adjusted Percentage (Calculated): 7.5 Adjusted [place] Body Weight (lbs) (Calculated): 181.3 lbs Adjusted [place] Body Weight (kg) (Calculated): 82.41 kg Adjusted [...] Oral Nutrition Supplement Isabel Lieberman RD Contact: *[phone] or secure chat ICU Progress Note Name: Anmol Franco Gail : 1960(63 y.o.) Date: 04/15/24 Team: MICU Chief Complaint: obstructed santana catheter, septic shock Subjective: Hospital Summary: 63 yoM with history of paraplegia after lumbar surgeries, F resident, history of recurrent UTIs in setting [...] 2-50 mcg/min, Last Rate: 5 mcg/min (04/15/24 0703) Objective: Last Vitals: BP MAP 108/67 (04/15/24 0816) 80 (04/15/24 0816) Arterial BP MAP Temp 37.1 C (98.8 F) (04/15/24 0411) Pulse 101 (04/15/24 0832) Resp 16 (04/15/24 08) SpO2 97 % (04/15/24 08) Weight 93.1 kg (205 lb 4.8 oz) (04/14/24 1555) BMI Body mass index is 25.66 kg/m . I/O: 04/14 700 - 04/15 0659 In: 3791.8 [I.V.:87.8] Out: [...] Normal [] Scar/Lesion/Mass Inspection of teeth/lips/gums Dentition: [x][place] Teeth []Dentures Lips/Gums: [x]Intact []Lesion Present Mucosa: [][place] []Moist [x]Dry Neck: External Appearance Overall Appearance: [...] last 24 hours- BMP: Recent Labs 04/14/24 16004/15/24 0407 NA 137 135 K 3.9 3.6 CL 102 105 CO2 19* 19* BUN 21* 25* CREATININE 1.24 1.01 CALCIUM 9.0 7.9* MG -- 1.7 PHOS -- 3.3 LFTs: Recent Labs 04/14/24 1603 04/14/24 19504/15/24 0407 AST 25 -- 36 ALT 22 -- 34 PROT 7.8 -- 5.5* ALBUMIN 4.0 -- 2.6* BILITOT 1.4* -- 1.1 ALKPHOS 167* -- 168* LIPASE 12* <10* -- Glucose: Recent Labs 04/14/24 16004/14/24 22104/14/24 22204/14/24 23304/15/24 0407 04/15/24 0608 GLUCOSE 259* -- -- -- 286* -- POCGLU -- 226* 210* 223* -- 285* BHYDRXBUT 1.08 -- -- -- -- -- Procal: Recent Labs 04/14/242317 PROCAL 27.06* CBC: Recent Labs 04/14/24 16004/14/24 1730 04/14/24231704/15/24 0407 WBC 1.5* -- 5.4 11.2* HGB 15.2 13.7 12.4* 11.9* HCT 47.3 -- 39.1* 36.2* PLT 183 -- 117* 107* MCV 95.6 -- 97.0 94.0 RDW 14.8 -- 14.8 14.9 ABGs: Recent Labs 04/14/24 1730 [id number] Room Air Lactic Acid: Recent Labs 04/14/24 1859 04/14/24231704/15/24 0407 LACTATE 3.9* 4.9* 3.6* INR: Recent [...] original note were not included. PHYSICAL THERAPY [facility] Name/MRN: Anmol Reynolds ([id number]) Date: 04/15/2024 PT evaluation and treat orders received. Spoke to patient at bedside. Pt is from [facility] and is paraplegic with everett lift to electric w/c. Pt states receives very minimal therapy services at [facility]. Pt has no current acute PT needs and is at baseline LOF. Rec return to [facility]. Nakita Kwan PT Images from the original note were not included. [facility] Urology Inpatient Progress Note 04/15/2024 at [...] in patient's urologic status. Joe Hammer, DNP, PRESS BREAKER, [facility] Urology Subjective: Interval History: No overnight issues. [...] Sciatica Type 2 diabetes mellitus without complication ([facility]/HCC) (FORMERLY [facility]) Objective: Vitals: BP 108/67 Pulse 92 Temp [...] 400 mg, 400 mg, IntraVENous, q24h, Brad Mujica, PRESS BREAKER - [facility], Stopped at 04/15/24 0254 glucagon (human recombinant) [...] in 0.9% sodium chloride 250 mL infusion (Hgz-Rnxmus-Twrui) (premix), 2-50 mcg/min, IntraVENous, Continuous, Pedro Luis Matos MD, Last Rate: 18.75 mL/hr at 04/15/24 0703, 5 mcg/min at 04/15/24 0703 ondansetron ODT [...] portions of this chart were dictated using [employer] voice recognition software. It is possible that typos and/or omissions and/or substitutions of words and/or phrases may exist, which may alter the intended meaning of the dictating provider. On this date 04/15/2024 I have spent 35 minutes mlfo-ez-wqhk time, reviewing previous notes, test results and [...] creatinine, and vancomycin levels interfaced automatically to Sunlot and data has been analyzed and interpreted. [...] Ongoing ICU care/mgmt documented in this encounter [facility] 04-17-2024 Consult note Associated Order (s): PHARMACY TO DOSE VANCO Vancomycin therapy has been discontinued by Dr. Moyer on 04-17. Thank you for the consult. Pharmacy signing off for vancomycin dosing. Carmel Collins [facility], Date: 04/17/24 Time: 1:40 PM Associated Order(s): IP CONSULT TO INFECTIOUS DISEASES Images from the original note were not included. [facility] - Infectious Diseases Attending Consult Note [...] Type 2 diabetes mellitus without complication (CMS/HCC) ([facility]ER[facility]) Past Surgical History: Past Surgical History: Procedure Laterality Date ANKLE SURGERY Right He has a titanium plate to the right ankle KNEE SURGERY ACL LAMINECTOMY Left 10/24/2020 LEFT BILATERAL L2-3-4-5 DECOMPRESSION performed by Opal Vigil MD at [facility] OR ORTHOPEDIC SURGERY PLACE URETAL STENT PERC [...] mg IntraVENous q24h Brad Mujica APRN - AMPOULE FILLER AND SEALER Stopped at 04/15/24 0254 glucagon (human recombinant) [...] Units SubCUTAneous q6h Brad Mujica APRN - AMPOULE FILLER AND SEALER 3 Units at 04/15/24 1334 Insulin Lispro [...] in 0.9% sodium chloride 250 mL infusion (Eae-Uatpgj-Qdkuz) (premix) 2-50 mcg/min IntraVENous Continuous Pedro Luis [...] Resource Strain: Low Risk (04/24/2023) Received from [facility], [facility] Overall Financial Resource Strain (CARDIA) [...] 71 13 98 % -- -- 04/15/24 1208 -- -- -- 73 15 98 % -- -- 04/15/24 1207 -- -- -- 73 (!) 11 98 [...] 70 12 99 % -- -- 04/15/24 115 -- -- -- 77 12 97 % [...] 74 14 98 % -- -- 04/15/24 1144 -- -- -- 69 (!) 11 98 % -- -- 04/15/24 1143 -- -- -- 69 (!) 10 99 % -- -- 04/15/24 1142 -- -- -- 79 16 100 % [...] -- 73 12 97 % -- -- 04/15/246 -- -- -- 72 14 96 % -- -- 04/15/24 113 -- -- -- 74 12 98 % -- -- 04/15/24 113 -- -- -- 71 (!) 10 97 % -- -- 04/15/24 113 -- -- -- 71 (!) 10 97 [...] (!) 11 96 % -- -- 04/15/24 1122 -- -- -- 70 (!) 11 96 [...] 70 (!) 11 95 % -- -- 04/15/248 -- -- -- 71 (!) 11 95 [...] 77 12 95 % -- -- 04/15/24 1003 -- -- -- 78 12 95 % -- -- 04/15/24 1002 125/75 -- -- 77 13 95 % -- -- 04/15/24 1001 -- -- -- 79 13 95 % -- -- 04/15/24 1000 -- -- -- 77 12 95 % -- -- 04/15/2459 -- -- -- 78 13 95 % -- -- 04/15/2458 -- -- -- 80 14 95 % -- -- 04/15/24 0957 -- -- -- 79 12 95 % -- -- 04/15/24 0956 -- -- -- 81 14 95 % -- -- 04/15/24 0955 -- -- -- 80 12 95 % [...] -- 87 15 94 % -- -- 04/15/2430 -- -- -- 82 15 95 % -- -- 04/15/2429 -- -- -- 86 13 96 % -- -- 04/15/2428 -- -- -- 85 14 96 % [...] -- 87 13 95 % -- -- 04/15/24918 -- -- -- 85 12 95 % -- -- 04/15/24917 -- -- -- 85 13 95 % -- -- 04/15/24916 -- -- -- 87 13 95 % -- -- 04/15/24915 -- -- -- 85 15 96 % -- -- 04/15/2415 -- -- -- 87 16 96 % -- -- 04/15/2414 -- -- -- 83 12 95 % -- -- 04/15/24912 -- -- -- 82 13 96 % -- -- 04/15/24911 -- -- -- 84 14 96 % -- -- 04/15/24910 -- -- -- 85 13 96 % -- -- 04/15/2410 -- -- -- 86 18 95 % -- -- 04/15/2409 -- -- -- 86 14 95 % -- -- 04/15/2408 -- -- -- 85 16 95 % -- -- 04/15/24906 -- -- -- 85 16 94 % -- -- 04/15/24905 -- -- -- 84 18 96 % -- -- 04/15/24904 -- -- -- 87 17 95 % -- -- 04/15/24903 -- -- -- 85 14 95 % -- -- 04/15/24 0903 -- -- -- 84 15 95 % -- -- 04/15/24 0902 -- -- -- 85 17 96 % -- -- 04/15/24 0901 105/69 -- -- 86 15 95 % -- -- 04/15/24 0900 -- -- -- 82 13 96 % -- -- 04/15/2459 -- -- -- 89 14 97 % -- -- 04/15/2458 -- -- -- 84 19 94 % [...] 91 (!) 11 94 % -- -- 04/15/2450 -- -- -- 92 12 94 % [...] -- 101 16 97 % -- -- 04/15/24830 -- -- -- 95 16 95 % -- -- 04/15/24829 -- -- -- 84 (!) 11 94 % -- -- 04/15/24828 -- -- -- 85 12 94 % -- -- 04/15/24827 -- -- -- 85 12 95 % [...] -- 87 12 95 % -- -- 04/15/2418 -- -- -- 86 12 95 % -- -- 04/15/24816 -- -- -- 86 12 95 % -- -- 04/15/2416 108/67 -- -- 86 12 95 % -- -- 04/15/24 0815 -- -- -- 87 12 95 % -- -- 04/15/24 0814 -- -- -- 87 14 95 % -- -- 04/15/24 0813 -- -- -- 86 12 95 % -- -- 04/15/24 0812 -- -- -- 87 12 95 % -- -- 04/15/24 0811 -- -- -- 86 13 95 % -- -- 04/15/24 0810 -- -- -- 87 12 95 % -- -- 04/15/24 0809 -- -- -- 87 12 95 % -- -- 04/15/24 0808 -- -- -- 87 12 94 % -- -- 04/15/2407 -- -- -- 86 12 95 % -- -- 04/15/2406 -- -- -- 88 13 95 % -- -- 04/15/24 0805 -- -- -- 87 13 95 % -- -- 04/15/24 0804 -- -- -- 87 (!) 11 95 % -- -- 04/15/24 0803 -- -- -- 86 12 95 % -- -- 04/15/24 0802 -- -- -- 87 12 95 % -- -- 04/15/24 0801 107/65 36.8 C (98.3 F) Oral 88 13 95 % -- -- 04/15/24 08 -- -- -- 87 12 95 % -- -- 04/15/249 -- -- -- 88 12 95 % -- -- 04/15/248 -- -- -- 86 12 95 % -- -- 04/15/247 -- -- -- 88 13 95 % -- -- 04/15/246 -- -- -- 88 13 95 % -- -- 04/15/24 0755 -- -- -- 87 14 95 % -- -- 04/15/24 0754 -- -- -- 87 12 95 % -- -- 04/15/243 -- -- -- 88 13 95 % -- -- 04/15/242 -- -- -- 86 13 95 % -- -- 04/15/241 -- -- -- 87 13 95 % -- -- 04/15/240 -- -- -- 88 13 94 % -- -- 04/15/2449 -- -- -- 87 13 95 % -- -- 04/15/2448 -- -- -- 87 13 95 % -- -- 04/15/2447 107/69 -- -- 88 13 95 % [...] -- 87 13 95 % -- -- 04/15/2431 -- -- -- 88 14 95 % -- -- 04/15/2430 -- -- -- 90 15 95 % -- -- 04/15/2429 -- -- -- 88 14 95 % [...] -- 91 17 96 % -- -- 04/15/24717 -- -- -- 90 13 95 % -- -- 04/15/24716 -- -- 88 12 95 % -- -- 04/15/2416 -- -- -- 87 13 95 % -- -- 04/15/24713 -- -- -- 87 13 95 % -- -- 04/15/24712 -- -- -- 86 13 95 % -- -- 04/15/24711 -- -- -- 83 13 94 % -- -- 04/15/24710 -- -- 86 13 95 % -- -- 04/15/2410 -- -- -- 86 13 95 % -- -- 04/15/24708 -- -- -- 87 13 95 % -- -- 04/15/2408 -- -- -- 86 13 95 % -- -- 04/15/24706 -- -- -- 86 13 95 % -- -- 04/15/24705 -- -- -- 86 13 94 % -- -- 04/15/24704 -- -- -- 87 12 93 % -- -- 04/15/24703 -- -- -- 88 13 93 % -- -- 04/15/24 07 -- -- -- 89 12 93 % -- -- 04/15/24 07 -- -- -- 88 13 92 % -- -- 04/15/24 0701 (!) 63/49 -- -- 90 13 93 % -- -- 04/15/24 07 -- -- -- 89 14 92 % -- -- 04/15/24 0631 (!) 63/51 -- -- 92 13 91 % -- -- 04/15/24 0608 (!) 64/49 -- -- 95 18 93 % -- -- 04/15/24 0531 -- -- -- 99 19 93 % -- -- 04/15/24 0504 (!) 81/51 -- -- 104 19 93 % -- -- 04/15/24 0502 (!) 68/51 -- -- 103 17 93 % -- -- 04/15/24 0411 91/55 37.1 C (98.8 F) Oral 111 16 93 % -- -- 04/15/24 0407 (!) 73/53 -- -- 108 23 94 % -- -- 04/15/24 0404 (!) 75/52 -- -- 108 22 94 % -- -- 04/15/24 0403 (!) 76/51 -- -- 107 19 93 % -- -- 04/15/24 0301 (!) -- -- 105 22 96 % -- [...] -- 107 26 94 % -- -- 07/11/24 2215 94/72 -- -- 107 24 97 [...] Labs 04/14/24 1603 04/14/24 2318 04/15/24 0407 NA 137 -- 135 K 3.9 [...] hours. 04/15/2024 0103 04/15/2024 0107 Urine culture [[id number]] Urine, Clean Catch In process Component Value No component results 04/14/2024 1631 04/15/2024 0835 Blood culture Site #1 - Suspected Infection [[id number]] (Abnormal) Blood, Venous Preliminary result Component Value Blood Culture Gram-negative bacilli Panic P 04/14/2024 1631 04/15/2024 0835 Blood culture Site #2 - Suspected Infection [[id number]] (Abnormal) Blood, Venous Preliminary result Component Value Blood Culture Gram-negative bacilli Panic P 04/14/2024 1631 04/15/2024 0828 Blood Culture Identification - Anaerobic [[id number]] (Abnormal) Blood, Venous Final result Component Value Proteus species Detected Abnormal Lines: PIV Radiography/Echo/Other: CT abdomen pelvis wo IV contrast [[id number]] Collected: 04/14/241928 Order Status: Completed Updated: 04/14/241938 Narrative: Patient Name: ANMOL REYNOLDS : 1960 Exam Date/Time: 04/14/2024 19:28 Procedure: CT ABDOMEN PELVIS WO IV CONTRAST Ordering Provider: [facility] Reason For Exam: Sepsis CT ABDOMEN AND [...] 7:37 PM EDT XR chest 1 view [[id number]] Collected: 04/14/241650 Order Status: Completed Updated: 04/14/241652 Narrative: [facility] 1960 [id number] Exam Date/Time: 04/14/2024 16:39 Procedure: XR CHEST 1 VIEW Ordering Provider: [facility], [facility] Reason For Exam: sepsis INDICATION: Sepsis. VIEWS: [...] open encounter. Associated Order(s): IP CONSULT TO HOME THEATER EXPERT This patient is not a new diabetic [...] associated supplies are needed. Thank you. Karlos PAVON,BSN,AZ- Images from the original note were not [...] creatinine, and vancomycin levels interfaced automatically to Sunlot and data has been analyzed and interpreted. Start Vancomycin 1000 mg Q 12 hours based on patient age, weight, renal function, and infectious diagnosis (10.7 mg/kg). Predicted AUC = 509 mg/L*hr (goal 400-600 mg/L*hr) Will assess level on 04-15 and adjust as appropriate. Trend serum creatinine. Orders placed. Thank you for this consult. Please secure text or call with questions. DATE: 04/14/24 TIME: 10:55 PM Dariel Patino RPh Clinical Pharmacist Available via Secure Chat Images from the original note were not included. Urology Inpatient Consultation Patient Name: Anmol Reynolds Date of : 1960 Admission Date: 04/14/2024 3:51 PM Today's Date: 04/14/2024 HISTORY OF PRESENT ILLNESS: The patient is a 63 y.o. male with sepsis anuria and bilateral ureteral obstruction. He presented to the er due to clogged santana. Data Afebrile [id number] Pulse-120 Creat-1.24 Co2-19 Lactic 5.1>>3.9 Wbc 1.5 [...] DECOMPRESSION performed by Opal Vigil MD at [facility] OR ORTHOPEDIC SURGERY ALLERGIES: No Known Allergies [...] Resource Strain: Low Risk (04/24/2023) Received from [facility] Overall Financial Resource Strain (CARDIA) Difficulty of Paying Living Expenses: Not hard at all Food Insecurity: No Food Insecurity (04/24/2023) Received from [facility] Hunger Vital Sign Worried About Running Out of Food in the Last Year: Never true Ran Out of Food in the Last Year: Never true Transportation Needs: No Transportation Needs (04/24/2023) Received from [facility] PRAPARE - Transportation Lack of Transportation (Medical): No Lack of Transportation (Non-Medical): No Physical Activity: Not on file Stress: Not on file Social Connections: Not on file Intimate Partner Violence: Not on file Housing Stability: High Risk (04/24/2023) Received from [facility] Housing Stability Vital Sign Unable to Pay for Housing in the Last Year: No Number of Places Lived in the Last Year: 4 In the last 12 months, was there a time when you did not have a steady place to sleep or slept in a fci (including now)?: No Review of Systems Constitutional: [...] Internal Medicine: MICU Initial Consult Name: Anmol Franco Given : 1960(63 y.o.) Date: 04/14/24 Attending: Dr. Hooker Subjective: Chief Complaint: UTI HPI: This is a 63 year old paraplegic patient, history of recurrent UTI at [facility] who presented to the ED today [...] Type 2 diabetes mellitus without complication (CMS/HCC) ([facility]) Past Surgical History: Procedure Laterality Date ANKLE SURGERY Right He has a titanium plate to the right ankle KNEE SURGERY ACL LAMINECTOMY Left 10/24/2020 LEFT BILATERAL L2-3-4-5 DECOMPRESSION performed by Opal Vigil MD at [facility] OR ORTHOPEDIC SURGERY No family history on [...] Resource Strain: Low Risk (04/24/2023) Received from [facility], [facility] Overall Financial Resource Strain (CARDIA) Difficulty of Paying Living Expenses: Not hard at all Food Insecurity: No Food Insecurity (04/24/2023) Received from [facility] Hunger Vital Sign Worried About Running Out of Food in the Last Year: Never true Ran Out of Food in the Last Year: Never true Transportation Needs: No Transportation Needs (04/24/2023) Received from [facility] PRAPARE - Transportation Lack of Transportation (Medical): No Lack of Transportation (Non-Medical): No Physical Activity: Not on file Stress: Not on file Social Connections: Not on file Intimate Partner Violence: Not on file Housing Stability: High Risk (04/24/2023) Received from [facility] Housing Stability Vital Sign Unable to Pay for Housing in the Last Year: No Number of Places Lived in the Last Year: 4 In the last 12 months, was there a time when you did not have a steady place to sleep or slept in a fci (including now)?: No No Known Allergies Prior [...] Normal [] Scar/Lesion/Mass Inspection of teeth/lips/gums Dentition: [][place] Teeth []Dentures Lips/Gums: []Intact []Lesion Present Mucosa: [][place] [x]Moist []Dry Neck: External Appearance Overall Appearance: [...] 14.8 -- ABGs: Recent Labs 04/14/24 1730 [id number] Room Air Lactic Acid: Recent Labs 04/14/24 [...] encounter [facility] 04-15-2024 Telephone encounter Note SURGERY SCHEDULING Surgeon: Dr. Joan Patel PROCEDURE: Cystoscopy, possible cystolitholapaxy, bilateral ureteroscopy, bilateral laser lithotripsy, bilateral ureteral stent change - Special request: Astrid ruano DIAGNOSIS: Bladder calculus, bilateral ureteral stones FACILITY: [facility] DETAILS: OUTPT ANESTHESIA: GENERAL TIME REQUESTED: 2hr DATE REQUESTED: Must be minimum of 2 weeks from today due to infection SURGERY ORDERS: Already placed by Joe Hammer NP on 04/15/2024 POST OP FOLLOW UP: cysto stent removal 2 wks [facility] 04-15-2024 History and physical note Images from the original note were not included. Attending History and Physical Admit Date: 04/14/2024 PCP: AMBROSIO MONROY DO CHIEF COMPLAINT: UTI Reason for Admission: Seps History Obtained From: patient HISTORY OF PRESENT ILLNESS: Anmol is a 63 y.o. male with , recurrent UTI at [facility] who presented to the ED today [...] called and patient [facility] go [facility]. Will admit for further evaluation and management. [...] DECOMPRESSION performed by Opal Vigil MD at [facility] OR ORTHOPEDIC SURGERY PLACE URETAL STENT PERC [...] Resource Strain: Low Risk (04/24/2023) Received from [facility] Overall Financial Resource Strain (CARDIA) Difficulty of Paying Living Expenses: Not hard at all Food Insecurity: No Food Insecurity (04/24/2023) Received from [facility] Hunger Vital Sign Worried About Running Out of Food in the Last Year: Never true Ran Out of Food in the Last Year: Never true Transportation Needs: No Transportation Needs (04/24/2023) Received from [facility] PRAPARE - Transportation Lack of Transportation (Medical): No Lack of Transportation (Non-Medical): No Physical Activity: Not on file Stress: Not on file Social Connections: Not on file Intimate Partner Violence: Not on file Housing Stability: High Risk (04/24/2023) Received from [facility] Housing Stability Vital Sign Unable to Pay for Housing in the Last Year: No Number of Places Lived in the Last Year: 4 In the last 12 months, was there a time when you did not have a steady place to sleep or slept in a fci (including now)?: No Family History: No family [...] Reynolds Mobile Relation: Sibling Secondary Emergency Contact: Leyla Reynolds Relation: Spouse [employer] Anmol Reynolds : 1960 Primary Care Physician: AMBROSIO MONROY DO The patient and/or family/surrogate voluntarily agreed to participate in ACP services. Patient s cognitive capacity: intact Code Status: [X] [FULL CODE - Continue all advanced life support: CPR,intubation,invasive procedures] [_] [DNR-CCA - DO NOT do CPR, intubation] [_] [DNR-DEVELOPMENT TECHNOLOGIST - Comfort care only] [_] DNR form [...] Orquidea Marti MD Division of Hospitalist Medicine [facility] documented in this encounter [facility] 04-14-2024 Emergency department Note Both sets of blood cultures obtained from each PIV when started. Samples labeled and at bedside in case BC ordered Leyla Mendoza RN 04/14/24 1643 Patient arrives via EMS from [facility] with c/o Santana catheter not draining, and Bi-Lateral Leg Pain. After triage assessment Santana catheter is draining. EMERGENCY DEPARTMENT ENCOUNTER Pt Name: Anmol Reynolds Birthdate 1960 Date of evaluation: 04/14/2024 ED Provider: Ene Crawley MD CHIEF COMPLAINT Chief Complaint Patient presents [...] DECOMPRESSION performed by Opal Vigil MD at [facility] OR ORTHOPEDIC SURGERY CURRENT MEDICATIONS Previous Medications [...] Resource Strain: Low Risk (04/24/2023) Received from [facility] Overall Financial Resource Strain (CARDIA) Difficulty of Paying Living Expenses: Not hard at all Food Insecurity: No Food Insecurity (04/24/2023) Received from [facility] Hunger Vital Sign Worried About Running Out of Food in the Last Year: Never true Ran Out of Food in the Last Year: Never true Transportation Needs: No Transportation Needs (04/24/2023) Received from [facility] PRAPARE - Transportation Lack of Transportation (Medical): No Lack of Transportation (Non-Medical): No Housing Stability: High Risk (04/24/2023) Received from [facility], [facility] Housing Stability Vital Sign Unable to Pay for Housing in the Last Year: No Number of Places Lived in the Last Year: 4 In the last 12 months, was there a time when you did not have a steady place to sleep or slept in a fci (including now)?: No SCREENINGS PHYSICAL EXAM ED Triage Vitals [04/14/24 1555] Temp Heart Rate Resp BP 37.6 C (99.6 F) (!) 121 20 -- SpO2 Temp Source Heart Rate Source Patient Position 99 % Oral Monitor Lying BP Location FiO2 (%) Left arm -- Xzfghvx-khnb-cptucqyxj, slightly toxic-appearing HEENT- atraumatic, normocephalic Neck- no [...] Culture. Procedure Abnormality Status --------- ------ Complete Urinalysis[[id number]] Please view results for these tests on [...] 1,000 mL (0 mL IntraVENous Stopped 04/14/24 1722) HYDROmorphone (Dilaudid) injection 0.5 mg (0.5 mg IntraVENous Given 04/14/24 1623) cefTRIAXone (Rocephin) 1,000 mg in sodium chloride 0.9 % 50 mL IVPB Mini-Bag Plus (0 mg IntraVENous Stopped 04/14/24 1652) vancomycin (Vancocin) 1750 mg in NS 500 mL IVPB (premix) (1,750 mg IntraVENous New Bag 04/14/24 1659) piperacillin-tazobactam (Zosyn) 3,375 mg in sodium chloride 0.9 % 50 mL IVPB Mini-Bag Plus (0 mg IntraVENous Stopped 04/14/24 1735) lactated ringers bolus 1,700 mL (1,700 mL IntraVENous New Bag 04/14/24 1659) sodium bicarbonate 8.4 % injection 50 mEq (50 mEq IntraVENous Given 04/14/24 1753) EMERGENCY DEPARTMENT COURSE and DIFFERENTIAL DIAGNOSIS/Reval/MDM: Vitals: [...] Mini-Bag Plus (0 mg IntraVENous Stopped 04/14/24 1652) vancomycin (Vancocin) 1750 mg in NS 500 [...] Infection Source: Unknown Reassessment exam: patient admitted Ene Crawley MD EKG interpreted by me: 04-14-2024. Time 1611. Rate 119 sinus tachycardia. Normal axis. AK interval 154, QRS 90, QTc 473. No [...] to contact the dictating provider for clarification.) Ene Crawley MD (electronically signed) Emergency Medicine Physician Ene Crawley MD 04/14/242002 Ene Crawley MD 04/14/242003 documented in this encounter [facility] 04-13-2024 Telephone encounter Note Called pt on his room number but unable to reach him or leave a message. I called nursing staff at [place] where [place] lives and was able to leave a message with nursing regarding his MRI findings and that I would like to speak with him and recommendations to schedule visit with SCI rehab and spine surgery. Vaishali Pierre DO [facility] 04-06-2024 Telephone encounter Note Telephoned [place] pt at dinner and hospital receptionist states she cannot pull pt away from dinner. [facility] 04-06-2024 Telephone encounter Note Called pt regarding his MRI, which showed: IMPRESSION: Acute-subacute sacral insufficiency fracture at S2. Postoperative and degenerative changes of the lumbar spine with linear granulation tissue at L2-3 and tethering of the cauda equina suggesting sequelae of chronic arachnoiditis. No evidence of osteomyelitis discitis or epidural abscess. [place] was [place] of [place], but I was able [...] to the above findings.He does not have HypePoint[employer] set up to message. Vaishali Pierre DO [facility] 02-10-2024 Instructions Vaishali Pierre DO - 02/10/2024 1:53 PM EDT - xrays of the low back - can schedule the MRI of the lumbar spine - I recommend seeing one of my colleagues in the spinal cord injury clinic documented in this encounter [facility] 02-10-2024 History of Present illness Narrative [...] currently in a nursing facility, [facility]. Bladder management is via Santana catheter. Bowel [...] in the spinal cord injury clinic for care home SCI related management. Vaishali Pierre DO Physical Medicine and Rehabilitation Vitals not obtained per provider's instructions. documented in this encounter [facility] 01-29-2024 History of Present illness Narrative Images from the original note were not included. [facility] [address] [place] [address] Dept: [phone] Dept Chief Complaint Patient presents with Pain [...] without abscess 10/15/2020 Diabetes mellitus without complication ([facility] ([facility]) 10/15/2020 Abnormal finding on EKG 10/15/2020 Other intervertebral disc displacement, lumbar region 10/15/2020 Lumbar radiculopathy 10/04/2020 Herniated nucleus pulposus, L5-S1, left 07/07/2017 No Known Allergies No family history on file. Past Medical History: Diagnosis Date Abscess, perineum Chronic back pain Hip sprain Hyperlipidemia Hypertension Neuropathy Osteoarthritis Sciatica Type 2 diabetes mellitus without complication ([facility] ([facility]) Social History Socioeconomic History Marital status: Spouse [...] DECOMPRESSION performed by Opal Vigil MD at [facility] OR ORTHOPEDIC SURGERY Current Outpatient Medications Medication [...] follow-ups on file. documented in this encounter [facility] 12-29-2023 History of Present illness Narrative Images from the original note were not included. [facility] [address] [place] [address] Dept: [phone] Dept Chief Complaint Patient presents with New [...] injury of coccygeal region, stage 3 (HCC) 04/20/2024 Septic shock (HCC) 04/14/2024 Lumbar stenosis with neurogenic claudication 10/24/2020 Spinal stenosis of lumbar region with neurogenic claudication 10/24/2020 Nicotine use disorder 10/15/2020 Unspecified osteoarthritis, unspecified site 10/15/2020 Pilonidal cyst without abscess 10/15/2020 Diabetes mellitus without complication ([facility]) (HCC) 10/15/2020 Abnormal finding on EKG 10/15/2020 [...] claudication Type 2 diabetes mellitus without complication ([facility]) ([facility]) Urinary calculus, unspecified UTI (urinary tract infection) [...] Resource Strain: Low Risk (04/24/2023) Received from [facility], [facility] Overall Financial Resource Strain (CARDIA) [...] DECOMPRESSION performed by Opal Vigil MD at [facility] OR ORTHOPEDIC SURGERY Right removal of hardware [...] follow-ups on file. documented in this encounter [facility] 09-08-2023 Telephone encounter Note Called and left message for doug to call to schedule patient a new patient appointment [facility] 09-08-2023 Miscellaneous Notes Called and left message for doug to call to schedule patient a new patient appointment Name of caller: Doug Contact phone number: [phone] Relationship to Patient: [facility] Provider: Practice: Pain Management Chief Complaint/Reason for Call: Doug states she mailed the referral over to the office and would like to know if the office received it. Please advise Best time of day caller can be reached: Any Patient advised that office/PCP has 24-48 business hours to return their call: Yes documented in this encounter [facility] 09-04-2023 Telephone encounter Note Name of caller: Doug Contact phone number: [phone] Relationship to Patient: [facility] Provider: Practice: Pain Management Chief Complaint/Reason for Call: Doug states she mailed the referral over to the office and would like to know if the office received it. Please advise Best time of day caller can be reached: Any Patient advised that office/PCP has 24-48 business hours to return their call: Yes [facility] 08-19-2023 Telephone encounter Note Returned call gave fax number gave address to mail referral [facility] 08-19-2023 Miscellaneous Notes Returned call gave fax number gave address to mail referral Name of caller: Doug Contact phone number: [phone] Relationship to Patient: [facility] Provider: Dr. Gillette Practice: Pain Management Chief Complaint/Reason for Call: Pt claims that fax of referral will not go threw and was hoping someone could give her a call back to go over the referral please advise Best time of day caller can be reached: Any Patient advised that office/PCP has 24-48 business hours to return their call: No Name of caller: Doug Contact phone number: [phone] Relationship to Patient: [facility] Provider: Dr. Gillette Practice: Pain Management Chief Complaint/Reason for Call: Doug states she would like a call back to confirm receipt of the patient's referral for SYSTEM SAFETY ENGINEER appt scheduling (fax number confirmed). Please contact [facility] and advise. Best time of day caller can be reached: Any Patient advised that office/PCP has 24-48 business hours to return their call: No documented in this encounter [facility] 08-19-2023 Telephone encounter Note Name of caller: [facility] Contact phone number: [phone] Relationship to Patient: [facility] Provider: Dr. Gillette Practice: Pain Management Chief Complaint/Reason for Call: Pt claims that fax of referral will not go threw and was hoping someone could give her a call back to go over the referral please advise Best time of day caller can be reached: Any Patient advised that office/PCP has 24-48 business hours to return their call: No [facility] 08-19-2023 Telephone encounter Note Name of caller: [facility] Contact phone number: [phone] Relationship to Patient: [facility] Provider: Dr. Gillette Practice: Pain Management Chief Complaint/Reason for Call: Doug states she would like a call back to confirm receipt of the patient's referral for SYSTEM SAFETY ENGINEER appt scheduling (fax number confirmed). Please contact [facility] and advise. Best time of day caller can be reached: Any Patient advised that office/PCP has 24-48 business hours to return their call: No [facility] 08-13-2023 Telephone encounter Note Called and gave fax number to send referral [facility] 08-13-2023 Miscellaneous Notes Called and gave fax number to send referral Pt is asking for a call back to be scheduled Left message for patient to call the office Returned call will call thursday Name of Caller: Doug [facility] Contact Reason for Appointment: Doug states that they faxed over a referral for patient a few days ago and is calling to schedule a SYSTEM SAFETY ENGINEER appointment. Please advise. [facility] Refills need, if any: none Medication Name: n/a ` documented in this encounter [facility] 08-13-2023 Telephone encounter Note Pt is asking for a call back to be scheduled [facility] 08-12-2023 Telephone encounter Note Left message for patient to call the office [facility] 08-07-2023 Telephone encounter Note Returned call will call thursday [facility] 08-06-2023 Telephone encounter Note Name of Caller: Doug - [facility] Contact Reason for Appointment: Doug states that they faxed over a referral for patient a few days ago and is calling to schedule a SYSTEM SAFETY ENGINEER appointment. Please advise. Office Name: [facility] Med[facility] Refills need, if any: none Medication Name: n/a ` [facility] 05-23-2023 Emergency department Note Physicians A.S. arrived and report given. Patient loaded and sent back to SNF. Vladimir Dimas RN 05/23/23 1207 [facility] 05-23-2023 Emergency department Note Physicians A[facility]. arrived and report given. Patient loaded and sent back to SNF. Vladimir Dimas RN 05/23/23 1207 Inserted a santana and drained initially 100ml [...] Sciatica Type 2 diabetes mellitus without complication ([facility]) SURGICAL HISTORY Past Surgical History: Procedure Laterality Date ANKLE SURGERY Right He has a titanium plate to the right ankle KNEE SURGERY ACL LAMINECTOMY Left 10/24/2020 LEFT BILATERAL L2-3-4-5 DECOMPRESSION performed by Opal Vigil MD at [facility] OR ORTHOPEDIC SURGERY CURRENT MEDICATIONS Previous Medications [...] Culture. Procedure Abnormality Status --------- ------ Complete Urinalysis[[id number]] Abnormal Final result Please view results for [...] paraplegia . 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 PROCEDURES: Unless otherwise noted below, none Procedures FINAL IMPRESSION 1. Urinary tract infection associated with indwelling urethral catheter, initial encounter ([facility]) DISPOSITION Discharge 05/23/2023 09:53:37 AM PATIENT REFERRED TO: Ambrosio Monroy DO [address] [facility] [address] [facility] [address] [facility] [address] DISCHARGE MEDICATIONS: New Prescriptions CEPHALEXIN (KEFLEX) [...] santana without success. documented in this encounter [facility] 05-23-2023 Emergency department Note Inserted a santana and drained initially 100ml of blood and puss. Bladder scan showed 500+ ml of fluid in bladder. Obtained OK from ED Attending to manually flush and drain the catheter. After using 30 ml of NS to flush patient the urine began to flow into the santana bag. Urine sample sent. Vladimir Dimas RN 05/23/23 1013 [facility] 05-23-2023 Emergency department Note Bed: 18 Expected date: Expected time: Means of arrival: Comments: Adelia Banuelos 05/23/23 0746 [facility] 05-23-2023 Emergency department Triage note Patient with chronic santana due to history of paraplegia that became clogged with blood clots. Patient had lithotripsy due to stone recently. SNF attempted several times to reinsert santana without success. [facility] 05-23-2023 Physician Emergency department Note EMERGENCY DEPARTMENT [...] Sciatica Type 2 diabetes mellitus without complication ([facility]) SURGICAL HISTORY Past Surgical History: Procedure Laterality Date ANKLE SURGERY Right He has a titanium plate to the right ankle KNEE SURGERY ACL LAMINECTOMY Left 10/24/2020 LEFT BILATERAL L2-3-4-5 DECOMPRESSION performed by Opal Vigil MD at [facility] OR ORTHOPEDIC SURGERY CURRENT MEDICATIONS Previous Medications [...] Culture. Procedure Abnormality Status --------- ------ Complete Urinalysis[[id number]] Abnormal Final result Please view results for [...] . I Colt Klein DO am the turf farmer of record. PROCEDURES: Unless otherwise noted below, none Procedures FINAL IMPRESSION 1. Urinary tract infection associated with indwelling urethral catheter, initial encounter (HCC) DISPOSITION Discharge 05/23/2023 09:53:37 AM PATIENT REFERRED TO: Ambrosio Monroy DO [address] [facility] [address] [facility] [address] [facility] [address] [facility] [address] DISCHARGE MEDICATIONS: New Prescriptions CEPHALEXIN (KEFLEX) [...] Medicine Provider Colt Klein DO 05/23/23 1010 T [facility] 04-21-2022 Note HNO ID: [id number] Author: Cindi Cuellar PA-C Service: ? Author Type: Physician Shelf Drier Operator Type: Progress Notes Filed: 04/21/2022 12:25 PM Note Text: Actionable Finding: Reviewed patient's chart. The actionable finding of MRI lumbar , dated 02/14/22 was followed up by unknown and unsure if the patient was contacted regarding the MRI results. Unable to reach patient. Staff msg sent to Dr Kelly - patient spine surgeon. Cindi Cuellar PA-C [facility] 04-21-2022 Note Patient Outreach (SP NSMN) GIVENANMOL ([id number]) 1960 M Date Time Provider Department 04/21/22 CINDI CUELLAR During your visit today, we recorded the [...] Of Date 04/21/2022 Noted Resolved NO SHOW [[id number]] 08/31/2013 05/29/2020 Perineal abscess [L02.215] 06/13/2019 05/29/2020 [...] Encounter Status:Closed by CINDI CUELLAR on 04/21/22 [facility] 04-21-2022 Note Patient Outreach (SP NSMN) ANMOL REYNOLDS ([id number]) 1960 M Date Time Provider Department 04/21/22 [...] Of Date 04/21/2022 Noted Resolved NO SHOW [] 08/31/2013 05/29/2020 Perineal abscess [L02.215] 06/13/2019 05/29/2020 [...] Encounter Status:Closed by CINDI CUELLAR on 04/21/22 [facility] 04-21-2022 History of Present illness Narrative Actionable Finding: Reviewed patient's chart. The actionable finding of MRI lumbar , dated 02/14/22 was followed up by unknown and unsure if the patient was contacted regarding the MRI results. Unable to reach patient. Staff msg sent to Dr Kelly - patient spine surgeon. Cindi Cuellar PA-C documented in this encounter [facility] 02-14-2022 History of Present illness Narrative Radiology [...] PERIPHERAL IV DATA: Ambulatory: [facility] line from [facility] RADIOLOGY DEPARTMENT: MR; Exam(s) Completed: Head: Routine Brain Spine: WHOLE spine SIGNATURE: RT Kasandra(Ector) PATIENT NAME: Anmol Reynolds DATE: February 14, 2022 TIME: 12:27 PM documented in this encounter [facility] 08-05-2021 Note HNO ID: [id number] Author: Penny Cameron MD Service: ? Author [...] midline Rectal: perirectal abscess IANDD site healed, cleft with 7mm openoing, tracks 1.4cm at 9 oclock and 1.7c,m at 12 oclock, no erythema or purulence Extremities:No clubbing, cyanosis, or edema. Neuro: Alert and oriented times three, No apparent distress LABS: Hgb A1c 10/25/2020 12.1 05/20.2020 -13.5 CEA 05/20 7.1, Ca 19-9 191 IMAGING: CT chest abd/pelvis (more content not included)... [facility] 01-16-2021 History of Past i llness Narrative Problem Noted Date Resolved Date Perirectal abscess 01/16/2021 08/21/2021 Perineal abscess 06/13/2019 05/29/2020 NO SHOW 08/31/2013 05/29/2020 documented as of this encounter (statuses as of 02/15/2022) [address]14-2021 History of Past illness Narrative* Problem Noted Date Resolved Date Perirectal abscess 01/16/2021 08/21/2021 Perineal abscess 06/13/2019 05/29/2020 NO SHOW 08/31/2013 05/29/2020 documented as of this encounter (statuses as of 04/21/2022) [facility] noteNo assessment information availableWMain [facility] Medical Center Work Phone: Evaluation note* Diagnosis Urinary tract infection associated with indwelling urethral catheter, initial encounter (HCC)- Primary [facility] Diagnosis Injury of lumbar spinal cord, sequela (HCC)- Primary Neuropathic pain [facility] Diagnosis Paraplegia (HCC)- Primary Paraplegia History of lumbar fusion Paraplegia (HCC) Paraplegia History of lumbar fusion [facility] Diagnosis Paraplegia (HCC) Paraplegia History of lumbar fusion [facility]* Diagnosis Bilateral ureteral calculi- Primary Bladder calculus Other calculus in bladder [facility] Diagnosis Septic shock (HCC)- Primary Septic shock (HCC) Urinary obstruction Decubitus ulcer of sacral region, stage 2 (HCC) Injury of lumbar spinal cord, sequela (HCC) Neuropathic pain Pressure injury of coccygeal region, stage 3 (HCC) Bacteremia Pressure injury of coccygeal region, stage 3 (HCC) Calculus of ureter [facility] Diagnosis Paraplegia (HCC)- Primary Paraplegia History of lumbar fusion Sacral insufficiency fracture, initial encounter [facility]* Diagnosis Bladder calculus- Primary Other calculus in bladder Bladder calculus Other calculus in bladder Bilateral ureteral calculi Calculus of ureter [facility] Diagnosis Sacral insufficiency fracture, initial encounter [...] this encounter [facility]* Diagnosis Spinal cord injury, lumbar, without spinal bone injury, sequela (HCC)- Primary Neuropathic pain documented in this [facility]* Diagnosis Paraplegia (HCC)- Primary Paraplegia Reflex [...] unspecified Gross hematuria [facility]* Diagnosis Pressure ulcer of sacral region, unspecified stage- Primary [facility] in [facility]* Diagnosis Chronic osteomyelitis (HCC)- Primary Chronic [...] Other postprocedural status [facility] Diagnosis Paraplegia (HCC)- Primary Paraplegia Neurogenic bladder Neurogenic bladder, NOS Gross hematuria Neuropathic pain Neuralgia, neuritis, and radiculitis, unspecified Pressure injury of skin, unspecified injury stage, unspecified location [facility]* Diagnosis Ureteral stent present- Primary Kidney stone Calculus of kidney Hydronephrosis, unspecified hydronephrosis type documented in this encounter [facility] note* Diagnosis Chronic osteomyelitis (HCC)- Primary Chronic osteomyelitis, site unspecified Severe protein-calorie malnutrition (HCC) Other severe protein-calorie malnutrition Ureteral calculi Calculus of ureter Complicated UTI (urinary tract infection) Urinary tract infection, site not specified Neurogenic bladder Neurogenic bladder, NOS Type 2 diabetes mellitus with hyperglycemia, with long-term current use of insulin (HCC) [facility]* Diagnosis Other acute osteomyelitis, other site (HCC)- Primary Other acute osteomyelitis, other site (HCC) Pressure injury of coccygeal region, stage 3 (HCC) Lumbar stenosis with neurogenic claudication Osteoarthritis, unspecified osteoarthritis type, unspecified site Other intervertebral disc displacement, lumbar region Pressure injury of coccygeal region, stage 3 (HCC) documented in this encounter [facility] Discharge instructions* Attachments The following attachments cannot be sent through Care Everywhere. * Urinary Tract Infections in Adults (Mongolian) [facility] ([facility] Consultation (Routine) - Pending Review Specialty Diagnoses / Procedures Referred By Contac t Referred To Contact Urology Diagnoses Urinary obstruction Procedures [place] OFFICE/OUTPATIENT NEW HIGH MDM 60 MINUTES Otis Mckenzie DO [address] [place] [address] Joan Patel MD [address] [address] Referral ID Status Reason Start Date Expiration Date Visits Requested Visits Authorized [id number] Pending Review Specialty Services Required 04/20/2024 04/20/2025 1 1 * Consultation (Routine) - Pending Review Specialty Diagnoses / Procedures Referred By Contac t Referred To Contact Wound Care Diagnoses Decubitus ulcer of sacral region, stage 2 (HCC) Procedures AK OFFICE/OUTPATIENT NEW HIGH MDM 60 MINUTES Sumi Everett APRN - [employer]OU[employer] F[employer]ER [employer]ER [address] [place] [address] Sb Op Wnd Ostomy [address] [place] [address] Referral ID Status Reason Start Date Expiration Date Visits Requested Visits Authorized [id number] Pending Review Specialty Services Required 04/15/2024 04/15/2025 1 1 [facility] referral (narrative)No reason for referral information availableWMain Campus Medical Center Work Phone: Reason for visit Narrative* Service Level Authorization (Routine) - Closed Specialty Diagnoses / Procedures Referred By Daisy paredes Referred To Contact Physical Medicine & Rehab/PM&R Diagnoses Paraplegia (HCC) Reflex neurogenic bladder Procedures CYSTOMETROGRAM W/FOUNDRY TENDER BLADDER IRRIGATION, SIMPLE, LAVAGE &/OR INSTILLATION COMPLEX UROFLOWMETRY ELECTROMYOGRAPHY STUDIES, ANAL/URETHRAL SPHINCTER, OTHER THAN NEEDLE, ANY TECHNIQUE VOIDING PRESSURE STUDIES; INTRA-ABDOMINAL VOIDING PRESSURE Faisal Simeon, [address] [place] [address] Phone: tel: fax: [facility] Nickolas Castillo PM&R [address] [place] [address] Phone: tel: Referral ID Status Reason Start Date Expiration Date V isits Requested Visits Authorized [id number] Closed Consultation -[facility] 06/13/2024 06/13/2025 1 1 [facility] N[facility]* MRI/CT (Routine) - Authorized Specialty Diagnoses / Procedures Referred By Daisy paredes Referred To Contact Radiology / [facility] Diagnoses Pressure ulcer of sacral region, unspecified stage PT WILL NEED A EVERETT LIFT SACRUM/PELVIS WO/W Pressure ulcer of sacral region, unspecified stage [L89.159] BIRDIE WILL FAX ORDER Procedures MRI PELVIS W/O & W/CONTRAST MATERIAL MRI WWO NEU1 B 300 Kristine Howell, PRESS BREAKER [address] [place] [address] Phone: tel: fax: Radiology [address] [place] [address] Phone: tel: Referral ID Status Reason Start Date Expiration Date V isits Requested Visits Authorized [id number] Authorized 11/14/2024 01/13/2025 3 3 [facility] Summary Purpose Family History No Family History [...] FoundDocuments on File Type Date Recorded 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 - Di[facility] [address] [place], [place] [address] Specialty Diagnoses / Procedures Referred By Contact Referred To Contact Physical Medicine & Rehab/PM&R Diagnoses Paraplegia (HCC) History of lumbar fusion Vaishali Pierre DO [address] [place] [address] [facility] [place] [facility] [address] [place] [address] Referral ID Status Reason Start Date Expiration Date V isits Requested Visits Authorized [id number] Authorized 02/10/2024 02/09/2025 1 1 Scheduling Instructions [...] care. Specialty Diagnoses / Procedures Referred By Contac t Referred To Contact Radiology Diagnoses Paraplegia (HCC) History of lumbar fusion Procedures MR L-SPINE W/+W/O Vaishali Pierre DO [address] [place] [address] [facility] MRI [address] [place] [address] Referral ID Status Reason Start Date Expiration Date V isits Requested Visits Authorized [id number] Authorized 02/10/2024 02/09/2025 1 1 Specialty Diagnoses / Procedures Referred By Contac t Referred To Contact Radiology Diagnoses Paraplegia (HCC) History of lumbar fusion Procedures XR L-SPINE AP+LATERAL 2-3 VIEWS Vaishali Pierre DO [address] [place] [address] [facility] DIAGNOSTIC RADIOLOGY [address] [place] [address] Referral ID Status Reason Start Date Expiration Date Visits Re quested Visits Authorized [id number] Closed 02/10/2024 02/09/2025 1 1 Referral ID Status Reason Start Date Expiration Date Visits Re quested Visits Authorized [id number] Closed 02/10/2024 02/09/2025 1 1 Specialty Diagnoses / Procedures Referred By Contac t Referred To Contact Diagnoses Paraplegia (HCC) History of lumbar fusion Sacral insufficiency fracture, initial encounter Vaishali Pierre DO [address] [place] [address] Referral ID Status Reason Start Date Expiration Date Visits Requested Visits Authorized [id number] Authorized [facility] [employer] 04/06/2024 04/06/2025 1 1 Scheduling Instructions You have been [facility] to the [facility]. You will be contacted to schedule your appointment within 24 - 48 hours. If you are not contacted within this time frame please call the [facility] at [phone] to schedule your appointment. Question Answer Reason [...] 2 OR 3 VIEWS Otis Mejia MD [address] [place] [address] [facility] DIAGNOSTIC RADIOLOGY [address] [place] [address] [place] [address] Referral ID Status Reason Start Date Expiration Date Visits Re quested Visits Authorized [id number] Closed 05/11/2024 05/11/2025 1 1 Specialty Diagnoses / Procedures Referred By Contac t Referred To Contact Radiology Diagnoses Sacral insufficiency fracture, initial encounter Procedures XR SACRUM-COCCYX 3 VIEWS Berna Johnson PA-C [address] [place] [address] [place] [address] [facility] DIAGNOSTIC RADIOLOGY [address] [place] [address] [place] [address] Referral ID Status Reason Start Date Expiration Date Visits Re quested Visits Authorized [id number] Closed 05/10/2024 05/10/2025 1 1 Specialty Diagnoses / Procedures Referred By Contac t Referred To Contact Radiology Diagnoses Sacral insufficiency fracture, initial encounter Procedures MR C-SPINE W/O Otis Mejia MD [address] [place] [address] [facility] MRI [address] [place] [address] Referral ID Status Reason Start Date Expiration Date V isits Requested Visits Authorized [id number] Authorized 05/11/2024 05/11/2025 1 1 Specialty Diagnoses / Procedures Referred By Contac t Referred To Contact Radiology Diagnoses Sacral insufficiency fracture, initial encounter Procedures MR T-SPINE W/O Otis Mejia MD [address] [place] [address] [place] [address] Referral ID Status Reason Start Date Expiration Date V isits Requested Visits Authorized [id number] Authorized 05/11/2024 05/11/2025 1 1 Specialty Diagnoses / Procedures Referred By Contac t Referred To Contact Radiology Diagnoses Sacral insufficiency fracture, initial encounter Procedures BD BONE DENSITY SURVEY Otis Mejia MD [address] [place] [address] [facility] BONE DENSITY [address] [place] [address] Referral ID Status Reason Start Date Expiration Date V isits Requested Visits Authorized [id number] Authorized 05/11/2024 05/11/2025 1 1 Specialty Diagnoses / Procedures Referred By Contac t Referred To Contact Physical Medicine & Rehab/PM&R Diagnoses Paraplegia (HCC) Reflex neurogenic bladder Faisal Simeon DO [address] [place] [address] [facility] [address] [place] [address] Referral ID Status Reason Start Date Expiration Date Visits Requested Visits Authorized [id number] Pending Review [facility] 06/13/2024 06/13/2025 3 3 Scheduling Instructions Please schedule this appointment through [employer] or call the phone number listed above. Thank you. Question Answer Is study to assess a baseline neurogenic bladder or for diagnosis of complaint? neurogenic bladder Does the patient have a known history of autonomic dysreflexia? No Should bladder medications be held prior to UDS? No Specialty Diagnoses / Procedures Referred By Contac t Referred To Contact Vocational Services Diagnoses Paraplegia (HCC) Faisal Simeon DO [address] [place] [address] Referral ID Status Reason Start Date Expiration Date Visits Requested Visits Authorized [id number] Authorized [facility] 06/13/2024 06/13/2025 3 3 Scheduling Instructions Please call to schedule an appointment. If you are unable to keep your appointment, please call [phone] at least 24 hours in advance. Question Answer Reason for request: Basic Needs (i.e. medical equipment, housing, food, rent, utilities, transpo), Benefits Applications (i.e. social security, job and family services), Vocational (i.e. [place] rehab services [employer], volunteer work), Other Support Services (i.e. medication programs, home accessibility, legal assistance) Other support services requested: Home accessibility Referral ID Status Reason Start Date Expiration Date Visits Re quested Visits Authorized [id number] Closed 05/11/2024 05/11/2025 1 1 Referral ID Status Reason Start Date Expiration Date Visits Re quested Visits Authorized [id number] Closed 05/11/2024 05/11/2025 1 1 Discharge Instructions [...] at most local grocery stores, pharmacies, and [employer]. ? If you have any questions about [...] Agent's Name Healthcare Agent's Phone Number 10/24/20 0808 No, patient does not have an advance directive for healthcare treatment -- -- -- -- -- Admitting Physician: Opal Vigil MD PCP: AMBROSIO MONROY DO Discharging Nurse: Discharging Hospital Unit/Room#: MLOZ OR Pool/NONE Discharging Unit Phone Number: Emergency Contact: Extended Emergency Contact Information Primary Emergency Contact: Leyla Reynolds [facility] Relation: Spouse Diagnostic Sales Specialist needed? No Secondary Emergency Contact: Ronald Reynolds [...] MENTAL STATUS:} IV Access: { ADELINE IV ACCESS:718598510} Nursing Mobility/ADLs: Walking {CHP DME ADLs:073292719} Transfer {CHP DME ADLs:193010383} Bathing {CHP DME ADLs:411425674} Dressing {CHP DME ADLs:103797804} Toileting {CHP DME ADLs:775257981} Feeding {CHP DME ADLs:609050086} Wire Charger {CHP DME ADLs:374609606} Med Delivery { ADELINE MED Delivery:079621338} Wound Care Documentation and Therapy: Elimination: Continence: Bowel: {YES / NO:} Bladder: {YES / NO:} Urinary Catheter: {Urinary Catheter:119866830} Colostomy/Ileostomy/Ileal Conduit: {YES / NO:} Date of Last BM: Intake/Output Summary (Last 24 hours) at 10/24/2020 1333 Last data filed at 10/24/2020 1139 Gross per 24 hour Intake 1000 ml Output 325 ml Net 675 ml No intake/output data recorded. Safety Concerns: { ADELINE Safety Concerns:078872685} Impairments/Disabilities: {[facility] Impairments/Disabilities:139097062} Nutrition Therapy: Current Nutrition Therapy: { ADELINE Diet List:176968633} Routes of Feeding: {P DME Other Feedings:763002633} Liquids: {[employer] liquid thickness:33607} Daily Fluid Restriction: {CHP DME Yes amt example:482238682} Last Modified Barium Swallow with Video (Video Swallowing Test): {Done Not Done Date:} Treatments at the Time of Hospital Discharge: Respiratory Treatments: Oxygen Therapy: {Therapy; copd oxygen:75154} Ventilator: { CC Vent List:082817279} Rehab Therapies: {THERAPEUTIC INTERVENTION:1786942958} Weight Bearing Status/Restrictions: { CC Weight Bearin} Other Medical Equipment (for information only, NOT a DME order): {EQUIPMENT:604623403} Other Treatments: Patient's personal belongings (please select all that are sent with patient): {CHP DME Belongings:406068399} RN SIGNATURE: {Esignature:123138147} CASE MANAGEMENT/SOCIAL WORK SECTION Inpatient Status Date: Readmission Risk Assessment Score: Readmission Risk Risk of Unplanned Readmission: 0 Discharging to Facility/ Agency Name: Address: Phone: Fax: Dialysis Facility (if applicable) Name: Address: Dialysis Schedule: Phone: Fax: Motion Picture Operator/Regulator Operator signature: {Esignature:055240331} PHYSICIAN SECTION Prognosis: {Prognosis:9501868334} Condition at Discharge: {MH Patient Condition:213701333} Rehab Potential (if transferring to Rehab): {Prognosis:2008060259} Recommended Labs or Other Treatments After Discharge: Physician Certification: I certify the above information and transfer of Anmol Reynolds is necessaryfor the continuing treatment of the diagnosis listed and that he requires {Admit to Appropriate Level of Care:25135} for {GREATER/LESS:870912199} 30 days. Update Admission H&P: {CHP DME Changes in HandP:743938085} PHYSICIAN SIGNATURE: * Additional Instructions* Opal Vigil MD - 10/24/2020 Every day change the dressing frequently to keep clean and dry 4 x 4 gauze pads paper tape. May shower 3 days. Avoid soaking or soap for 1 week. Recheck 1 month [id number]. E prescribed Whit[place]orn 5/325 #28 done documented in this encounter History of Present Illness * Thomas Quinones MD - 10/25/2020 1:11 PM EST [...] +2 palpable, equal bilaterally Labs: Recent Labs 10/25/20 0457 WBC 10.9* HGB 13.3* HCT 39.0* PLT 232 Recent Labs 10/25/20 0457 NA 137 K 3.9 CL 100 CO2 [...] Status: Full Code PT/OT Eval * Ye Prado APRN - SHARIFA - 10/25/2020 9:43 AM EST Patient is [...] placed in his belonging's bag. * Jimenez Staples RN - 10/24/2020 9:02 AM EST Pt [...] region, with neurogenic claudication Hospital Course Note [place] [id number] [place] [id number] DISCHARGE SUMMARY PATIENT NAME: ANMOL REYNOLDS : 1960 MED REC NO: [id number] ROOM: [facility] ACCOUNT NO: [id number] ADMIT DATE: 10/24/2020 PROVIDER: Opal Vigil MD DISCH DATE: HOSPITAL COURSE: Left and bilateral L2-L3, L3-L4, L4-L5 micro decompressions. The patient tolerated the procedure well. Wound drain in place, removal the next day. Once ambulatory with bladder control, plan discharge in good condition. DISCHARGE DIAGNOSIS: L2, L3, L4, L5 canal stenosis with neurogenic claudication, improved. DISCHARGE MEDICATION: Whitethorn 5/325, #28. DISCHARGE INSTRUCTIONS: The patient has been instructed to keep the wound clean and dry about three days, avoiding soaking or soap for a week, recheck in a month. If he has any questions or problems, please contact the office. OPAL VIGIL MD [id number] Doc#: [id number] CC: Chief Complaint and Reason for Visit Chief Complaint LABWORK Chief Complaint LABWORK PENITENTIARY LAB WORK Chief Complaint LABWORK PENITENTIARY LAB WORK PENITENTIARY LAB WORK Chief Complaint PENITENTIARY LAB WOR K PENITENTIARY LAB WORK PENITENTIARY LAB WORK LABWORK Chief Complaint LABWORK PENITENTIARY LAB WORK LABWORK Chief Complaint LABWORK PENITENTIARY LAB WORK LABWORK PENITENTIARY LAB WORK Chief Complaint Admit Date PENITENTIARY LAB WORK September 20 5:00am PENITENTIARY LAB WORK September 29 4:00am PENITENTIARY LAB WORK October 03 5:00am LABWORK October 10, 2024 5: 00am PENITENTIARY LAB WORK November 29 4:45am LABWORK November 30, 2024 5:00am Chief Complaint Admit Date PENITENTIARY LAB WORK September 20 5:00am PENITENTIARY LAB WORK September 29 4:00am PENITENTIARY LAB WORK October 03 5:00am LABWORK October 10, 2024 5: 00am PENITENTIARY LAB WORK November 29 4:45am LABWORK November 30, 2024 5:00am PENITENTIARY LAB WORK December 07, 2024 5: 00am Chief Complaint Admit Date PENITENTIARY LAB WORK November 29 4:45am LABWORK November 30, 2024 5:00am PENITENTIARY LAB WORK December 07, 2024 5: 00am PENITENTIARY LAB WORK January 09, 2025 5: 00am LABWORK February 15, 2025 4:20a m LABOWRK March 01, 2025 5:00a m Chief Complaint Admit Date PENITENTIARY LAB WORK November 29 4:45am LABWORK November 30, 2024 5:00am PENITENTIARY LAB WORK December 07, 2024 5: 00am PENITENTIARY LAB WORK January 09, 2025 5: 00am LABWORK February 15, 2025 4:20a m Additional Source Comments (unrecognized [...] section and content) DATE CREATED AUTHOR 03/30/2018 [facility] DATE CREATED AUTHOR AUTHOR'S ORGANIZ ATION 03/31/2018 [facility] DATE CREATED AUTHOR AUTHOR'S ORGANIZ ATION 06/22/2018 [facility] DATE CREATED AUTHOR AUTHOR'S ORGANIZ ATION 07/08/2018 [facility] DATE CREATED AUTHOR AUTHOR'S ORGANIZ ATION 10/20/2020 [facility] DATE CREATED AUTHOR AUTHOR'S ORGANIZ ATION 10/27/2020 [facility] DATE CREATED AUTHOR AUTHOR'S ORGANIZ ATION 05/24/2021 [facility] DATE CREATED AUTHOR AUTHOR'S ORGANIZ ATION 10/16/2021 [facility] DATE CREATED AUTHOR AUTHOR'S ORGANIZ ATION 04/25/2022 [facility] DATE CREATED AUTHOR AUTHOR'S ORGANIZ ATION 11/10/2024 [facility] DATE CREATED AUTHOR AUTHOR'S ORGANIZ ATION 03/22/2025 [facility] DATE CREATED AUTHOR AUTHOR'S ORGANIZ ATION 03/27/2025 [facility] DATE CREATED AUTHOR AUTHOR'S ORGANIZ ATION 05/03/2025 [facility] DATE CREATED AUTHOR AUTHOR'S ORGANIZ ATION 05/04/2025 [facility] Reason for Visit (unrecogniz ed section and content) Status Reason Specialty Diagnoses / Procedures Referre d By Contact Referred To Contact Diagnoses L2-3-4-5 STENOSIS Procedures AK LAMINECTOMY,>2 SGMT,LUMBAR LEFT BILATERAL L2-3-4-5 DECOMPRESSION. 2.5 HOURS, C-ARM, POWER RONGEUR. 1ST CASE (PAT AT [facility]) Opal Vigil MD [address] [address] [facility] Reason Comments Urinary Retention Reason Onset Date Comments new patient appointment 08/06/2023 Reason Onset Date Comments Referral 09/04/2023 Reason Onset Date Comments Referral 08/19/2023 Confirm Receipt of Referral for SYSTEM SAFETY ENGINEER Appt Scheduling Reason Comments Pain Pt is here for pain in both legs. He states he has "jolts"of pain in his legs as well as a burning sensation. He was put on Lyrica which he states is not working. Reason Comments New patient, to establish relationship D iscuss mri Specialty Diagnoses / Procedures Referred By Daisy paredes Referred To Contact Radiology Diagnoses Paraplegia (HCC) History of lumbar fusion Procedures MR L-SPINE W/+W/O Vaishali Pierre DO [address] [place] [address] S MRI [address] [place] [address] Referral ID Status Reason Start Date Expiration Date Visits Re quested Visits Authorized [id number] Closed 02/10/2024 02/09/2025 1 1 Reason Comments Leg Pain Specialty Diagnoses / Procedures Referred By Contac t Referred To Contact Diagnoses Urinary obstruction Septic shock (HCC) Procedures - Lauryn Hooker MD [address] [place] [address] [facility] [address] [place] [address] Referral ID Status Reason Start Date Expiration Date Visits Re quested Visits Authorized [id number] 1 1 Reason Onset Date Comments Surgery Scheduling 04/15/2024 Reason Onset Date Comments Reschedule 05/04/2024 Specialty Diagnoses / Procedures Referred By Contac t Referred To Contact Diagnoses Calculus of ureter Procedures AK CYSTOURETHROSCOPY AK LITHOLAPAXY COMP/LG > 2.5 CM AK CYSTO W/URETEROSCOPY W/LITHOTRIPSY AK CYSTO W/INSERT URETERAL STENT CYSTOSCOPY POSSIBLE CYSTOLITHOLAPAXY BILATERAL URETEROSCOPY ASTRID LASER LITHOTRIPSY BILATERAL URETERAL STENT CHANGE Joan Patel MD [address] [place] [address] [address] [place] [address] Referral ID Status Reason Start Date Expiration Date Visits Re quested Visits Authorized [id number] 1 1 Reason Onset Date Comments Update 05/10/2024 Specialty Diagnoses / Procedures Referred By Contac t Referred To Contact Radiology Diagnoses Sacral insufficiency fracture, initial encounter Procedures XR SACRUM-COCCYX 3 VIEWS Berna Johnson PA-C [address] [facility] [facility] [place] [address] [facility] DIAGNOSTIC RADIOLOGY [address] [facility] [place] [address] Referral ID Status Reason Start Date Expiration Date Visits Re quested Visits Authorized [id number] Closed 05/10/2024 05/10/2025 1 1 Reason Onset Date Comments Labs Only 05/13/2024 Reason Comments Numbness/tingling New patient, to establish relationship Specialty Diagnoses / Procedures Referred By Contac t Referred To Contact Diagnoses Paraplegia (HCC) History of lumbar fusion Sacral insufficiency fracture, initial encounter Vaishali Pierre DO [address] [place] [address] Referral ID Status Reason Start Date Expiration Date V isits Requested Visits Authorized [id number] Closed Consultation -[facility] 04/06/2024 04/06/2025 1 1 Reason Comments Other Abnormal labs, blood cultures has been done to pt in facility, gram + cocci. Had back sx 2 yrs ago that resulted to paraplegia, pt is paralyze from waist down. Afebrile, aox4 Specialty Diagnoses / Procedures Referred By Daisy t Referred To Contact Diagnoses Positive blood cultures Procedures - Heydi Concepcion MD [address] [place] [address] [facility] Emergency Dept [address] [place] [phone] Referral ID Status Reason Start Date Expiration Date Visits Re quested Visits Authorized [id number] 1 1 Reason Comments New Patient Leg Pain Pt states having jeri n on his paralyzed legs, pain rate 8/10. Reason Comments New patient, to establish relationship Specialty Diagnoses / Procedures Referred By Contact Referred To Contact Physical Medicine & Rehab/PM&R Diagnoses Paraplegia (HCC) History of lumbar fusion Vaishali Pierre DO [address] [place], [place] [id number] [facility] [place] [facility] [address] [place] [phone] Referral ID Status Reason Start Date Expiration Date V isits Requested Visits Authorized [id number] Pending Review 02/10/2024 02/09/2025 1 1 Reason Onset Date Comments Reschedule 06/15/2024 Specialty Diagnoses / Procedures Referred By Contac t Referred To Contact Radiology Diagnoses Sacral insufficiency fracture, initial encounter Procedures MR T-SPINE W/O Otis Mejia MD [address] [place], [place] [id number] S MRI [address] [place] [address] Referral ID Status Reason Start Date Expiration Date Visits Re quested Visits Authorized [id number] Closed 05/11/2024 05/11/2025 1 1 Reason Comments Evaluation Follow up Reason Comments Osteoporosis Reason Onset Date Comments Appointment 10/25/2024 Reason Onset Date Comments Hospital F/U 02/19/2025 Reason Onset Date Comments Other 03/07/2025 Reason Comments Evaluation Reason Comments Nephrolithiasis Reason Comments Wound Check Sacrum / left ischiu m Reason Comments Wound Infection Per EMS pt was sent here from the [facility] for wound infections. Pt has two wound on his sacrum - one at the top of sacrum and one at the bottom of the buttocks. Denies any fever/ CP/FEVER/ SOB. Pt is paralysis. Specialty Diagnoses / Procedures Referred By Contac t Referred To Contact Diagnoses Other acute osteomyelitis, other site (HCC) Procedures m86.18 Georgette Bueno MD [address] [place] [address] Phone: tel: fax: [facility] Medical Unit [address] [place] [phone] Phone: tel: Referral ID Status Reason Start Date Expiration Date Visits Re quested Visits Authorized [id number] 1 1 Ordered Prescriptions (unrec ognized section [...] or prosecute any alcohol or drug abuse patient.[facility] the event this information is protected by the Federal Confidentiality of Alcohol and Drug Abuse Patient Records regulations: The Federal rules restrict any use of the information to criminally investigate or prosecute any alcohol or drug abuse patient.[facility] the event this information is protected by the Federal Confidentiality of Alcohol and Drug Abuse Patient Records regulations: The Federal rules restrict any use of the information to criminally investigate or prosecute any alcohol or drug abuse patient.[facility] the event this information is protected by the Federal Confidentiality of Alcohol and Drug Abuse Patient Records regulations: The Federal rules restrict any use of the information to criminally investigate or prosecute any alcohol or drug abuse patient.[facility] the event this information is protected by the Federal Confidentiality of Alcohol and Drug Abuse Patient Records regulations: The Federal rules restrict any use of the information to criminally investigate or prosecute any alcohol or drug abuse patient.[facility] the event this information is protected by the Federal Confidentiality of Alcohol and Drug Abuse Patient Records regulations: The Federal rules restrict any use of the information to criminally investigate or prosecute any alcohol or drug abuse patient.[facility] the event this information is protected by the Federal Confidentiality of Alcohol and Drug Abuse Patient Records regulations: The Federal rules restrict any use of the information to criminally investigate or prosecute any alcohol or drug abuse patient.[facility] the event this information is protected by the Federal Confidentiality of Alcohol and Drug Abuse Patient Records regulations: The Federal rules restrict any use of the information to criminally investigate or prosecute any alcohol or drug abuse patient.[facility] Care Teams (unrecognized sec tion and content) Pollution Control Technician Relationship Specialty Start Date End Date Ambrosio Monroy, DO [address] [place] [address] PCP - General Family Practice 05/21/17 Penny Cameron MD [address] [address] Consulting General Surgery 01/17/21 Gayle Scott MD [address] [place] [address] Consulting Infectious Diseases 12/03/21 Ambrosio Monroy, DO [address] [place] [address] Home Care Physician Internal Medicine 12/03/21 Pollution Control Technician Relationship Specialty Start Date End Date Ambrosio Monroy, DO [address] [place] [address] PCP - General Family Practice 05/21/17 Penny Cameron MD [address] [address] Consulting General Surgery 01/17/21 Gayle Scott MD [address] [place] [address] Consulting Infectious Diseases 12/03/21 Ambrosio Monroy, [address] [place] [address] Home Care Physician Internal Medicine 12/03/21 Pollution Control Technician Relationship Specialty Start Date End Date Ambrosio Monroy DO [address] [place] [address] PCP - General Family Practice 05/21/17 Penny Cameron MD [address] [address] Consulting General Surgery 01/17/21 Gayle Scott MD [address] [place] [address] Consulting Infectious Diseases 12/03/21 Ambrosio Monroy DO [address] [place] [place] [address] Home Care Physician Internal Medicine 12/03/21 Team Status: Active Member Role Status Dates Dr. Ambrosio Monroy , Primary Care Provider Active Team Status: Inactive Member Role Status Dates Dr. Ambrosio Monroy DO Primary Care Provider Active Tab MURO Attending Provider Active Team Status: Active Member Role Status Dates Dr. Ambrosio Monroy DO Primary Care Provider Active Tab MURO Attending Provider Active Pollution Control Technician Relationship Specialty Start Date End Date Ambrosio Monroy DO [address] [place] [address] PCP - General 06/07/17 Team Status: Inactive Member Role Status Dates Dr. Ambrosio Monroy DO Primary Care Provider Active Tab MURO Attending Provider, Referring Provi krish Active Pollution Control Technician Relationship Specialty Start Date End Date Ambrosio Monroy DO [address] [place] [address] PCP - General 06/07/17 Pollution Control Technician Relationship Specialty Start Date End Date Ambrosio Monroy DO [address] [place] [place] [address] PCP - General 06/07/17 Pollution Control Technician Relationship Specialty Start Date End Date Ambrosio Monroy DO [address] [place] [address] PCP - General 06/07/17 Pollution Control Technician Relationship Specialty Start Date End Date Ambrosio Monroy DO [address] [place] [address] [place] [address] PCP - General 06/07/17 Pollution Control Technician Relationship Specialty Start Date End Date Vaishali Pierre DO [address] [place] [address] Physician Physical Medicine & Rehab/PM&R 03/05/24 Pollution Control Technician Relationship Specialty Start Date End Date Ambrosio Monroy DO [address] [place] [address] PCP - General 06/07/17 Pollution Control Technician Relationship Specialty Start Date End Date Ambrosio Monroy DO [address] [place] [address] PCP - General 06/07/17 Pollution Control Technician Relationship Specialty Start Date End Date Ambrosio Monroy DO [address] [place] [place] [address] PCP - General 06/07/17 Pollution Control Technician Relationship Specialty Start Date End Date Vaishali Pierre [address] [place] [address] Physician Physical Medicine & Rehab/PM&R 03/05/24 Pollution Control Technician Relationship Specialty Start Date End Date Ambrosio Monroy DO [address] [place] [address] PCP - General 06/07/17 Joan Patel MD 201 [facility] 3 [place] [address] Surgeon Urology 05/05/24 Pollution Control Technician Relationship Specialty Start Date End Date Ambrosio Monroy DO [address] [place] [address] PCP - General 06/07/17 Joan Patel MD [address] [address] Surgeon Urology 05/05/24 Pollution Control Technician Relationship Specialty Start Date End Date Vaishali Pierre [address] [place] [address] Physician Physical Medicine & Rehab/PM&R 03/05/24 Pollution Control Technician Relationship Specialty Start Date End Date Vaishali Pierre [address] [place] [address] Physician Physical Medicine & Rehab/PM&R 03/05/24 Pollution Control Technician Relationship Specialty Start Date End Date Ambrosio Monroy DO 195 [place] [facility] [address] [place] [address] PCP - General 06/07/17 Joan Patel MD [address] [address] Surgeon Urology 05/05/24 Pollution Control Technician Relationship Specialty Start Date End Date Vaishali PierreDO [address] [place] [address] Physician Physical Medicine & Rehab/PM&R 03/05/24 Pollution Control Technician Relationship Specialty Start Date End Date Ambrosio Monroy DO 195 [place] [facility] [address] [place], [place] [address]331 PCP - General 06/07/17 05/18/24 Tab Dupont [address] [place] [phone] PCP - General Internal Medicine 05/19/24 Joan Patel MD [address] [facility] 3 [place] [address] Surgeon Urology 05/05/24 Pollution Control Technician Relationship Specialty Start Date End Date Ambrosio Mornoy DO [address] [place] [address] PCP - General 06/07/17 05/18/24 Pollution Control Technician Relationship Specialty Start Date End Date Vaishali Pierre DO [address] [place] [address] Physician Physical Medicine & Rehab/PM&R 03/05/24 Otis Mejia MD [address] [place] [address] Physician Orthopaedic Surgery 06/11/24 Pollution Control Technician Relationship Specialty Start Date End Date Vaishali Pierre DO [address] [place] [address] Physician Physical Medicine & Rehab/PM&R 03/05/24 Otis Mejia MD [address] [place] [address] Physician Orthopaedic Surgery 06/11/24 Pollution Control Technician Relationship Specialty Start Date End Date Tab Dupont [address] [place] [phone] PCP - General Internal Medicine 05/19/24 Joan Patel MD [address] [facility] 3 [place] [address] Surgeon Urology 05/05/24 Pollution Control Technician Relationship Specialty Start Date End Date Vaishali Pierre DO [address] [place] [address] Physician Physical Medicine & Rehab/PM&R 03/05/24 Otis Mejia MD [address] [place] [address] Physician Orthopaedic Surgery 06/11/24 Pollution Control Technician Relationship Specialty Start Date End Date Vaishali Pierre DO [address] [place] [address] Physician Physical Medicine & Rehab/PM&R 03/05/24 Otis Mejia MD [address] [place] [address] Physician Orthopaedic Surgery 06/11/24 Pollution Control Technician Relationship Specialty Start Date End Date Vaishali Pierre DO [address] [place] [address] Physician Physical Medicine & Rehab/PM&R 03/05/24 Otis Mejia MD [address] [place] [address] Physician Orthopaedic Surgery 06/11/24 Pollution Control Technician Relationship Specialty Start Date End Date Vaishali Pierre DO [address] [place] [address] Physician Physical Medicine & Rehab/PM&R 03/05/24 Otis Mejia MD [address] [place] [address] Physician Orthopaedic Surgery 06/11/24 Pollution Control Technician Relationship Specialty Start Date End Date JuanVaishali [address] [place] [address] Physician Physical Medicine & Rehab/PM&R 03/05/24 Otis Mejia MD [address] [place] [address] Physician Orthopaedic Surgery 06/11/24 Pollution Control Technician Relationship Specialty Start Date End Date JuanVaishaliDO [address] [place] [address] Physician Physical Medicine & Rehab/PM&R 03/05/24 Otis Mejia MD [address] [place] [address] Physician Orthopaedic Surgery 06/11/24 Pollution Control Technician Relationship Specialty Start Date End Date Juan VaishaliDO [address] [place] [address] Physician Physical Medicine & Rehab/PM&R 03/05/24 Otis Mejia MD [address] [place] [address] Physician Orthopaedic Surgery 06/11/24 Giuliano Shultz DO [address] [place] [address] Physician Rheumatology 09/10/24 [place] [address] [place] [address] Physician Physical Medicine & Rehab/PM&R 09/30/24 Pollution Control Technician Relationship Specialty Start Date End Date Tab Dupont [address] [place] [phone] PCP - General Internal Medicine 05/19/24 Joan Patel MD 201 [facility] 3 [place] [address] Surgeon Urology 05/05/24 Team Status: Inactive Member Role Status Dates Dr. Ambrosio Monroy DO Primary Care Provider Active Start: September 20, 2024 End: September 20, 2024 Tab UMRO Attending Provider Active Sta rt: September 20, [...] December 07, 2024 End: December 07, 2024 Pollution Control Technician Relationship Specialty Start Date End Date Penny Cameron MD [address] [facility] [address] [place] [address] Consulting General Surgery 01/17/21 Gayle Scott MD [address] [facility] 290 [place] [phone] Consulting Infectious Diseases 12/03/21 Ambrosio Monroy MD [address] [place] [address] 402 [place] [address] Home Care Provider Internal Medicine 12/03/21 Pollution Control Technician Relationship Specialty Start Date End Date Tab Dupont [address] [place] [phone] PCP - General Internal Medicine 05/19/24 Joan Patel MD 201 [facility] 3 [place] [address] Surgeon Urology 05/05/24 Pollution Control Technician Relationship Specialty Start Date End Date Penny Cameron MD [address] [address] Consulting General Surgery 01/17/21 Gayle Scott MD [address] [facility] [address] [place] [phone] Consulting Infectious Diseases 12/03/21 Ambrosio Monroy MD [address] [place] [address] Home Care Provider Internal Medicine 12/03/21 Pollution Control Technician Relationship Specialty Start Date End Date Penny Cameron MD [address] [address] Consulting General Surgery 01/17/21 Gayle Scott MD [address] [facility] [address] [place] [phone] Consulting Infectious Diseases 12/03/21 Ambrosio Monroy MD [address] [place] [address] Home Care Provider Internal Medicine 12/03/21 Pollution Control Technician Relationship Specialty Start Date End Date Tab Dupont [address] [place] [phone] PCP - General Internal Medicine 05/19/24 Joan Patel MD 201 [facility] 3 [place] [address] Surgeon Urology 05/05/24 Pollution Control Technician Relationship Specialty Start Date End Date Tab Dupont [address] [place] [phone] PCP - General Internal Medicine 05/19/24 Joan Patel MD 201 [facility] 3 [place] [address] Surgeon Urology 05/05/24 Pollution Control Technician Relationship Specialty Start Date End Date Tab Dupont [address] [place] [phone] PCP - General Internal Medicine 05/19/24 Joan Patel MD [address] [address] Surgeon Urology 05/05/24 Pollution Control Technician Relationship Specialty Start Date End Date Vaishali Pierre DO [address] [place] [address] Physician Physical Medicine & Rehab/PM&R 03/05/24 Otis Mejia MD [address] [place] [address] Physician Orthopaedic Surgery 06/11/24 Giuliano Shultz DO [address] [place] [address] Physician Rheumatology 09/10/24 Faisal Simeon DO [address] [place] [address] Physician Physical Medicine & Rehab/PM&R 09/30/24 Team [...] March 01, 2025 End: March 01, 2025 Pollution Control Technician Relationship Specialty Start Date End Date Tab Dupont [address] [place] [phone] PCP - General Internal Medicine 05/19/24 Joan Patel MD [address] [address] Surgeon Urology 05/05/24 Team Status: Active Member Role Status Dates Dr. Ambrosio Monroy DO Primary Care Provider Active Start: March 01, 2025 Tab MURO Attending Provider Active Sta rt: March 01, 2025 Pollution Control Technician Relationship Specialty Start Date End Date Tab Dupont [address] [place] [phone] PCP - General Internal Medicine 05/19/24 Joan Ptael MD [address] [address] Surgeon Urology 05/05/24 Pollution Control Technician Relationship Specialty Start Date End Date Penny Cameron MD [address] [address] Consulting General Surgery 01/17/21 Gayle Scott MD [address] [place] [address] Consulting Infectious Diseases 12/03/21 Ambrosio Monroy MD [address] [place], [place] [address] Home Care Provider Internal Medicine 12/03/21 Pollution Control Technician Relationship Specialty Start Date End Date Tab Dupont MD [address] [facility] 8 [place] [address] PCP - General Internal Medicine 03/20/25 Penny Cameron MD [address] [address] Consulting General Surgery 01/17/21 Gayle Scott MD [address] [place] [phone] Consulting Infectious Diseases 12/03/21 Ambrosio Monroy MD [facility] [address] [place] [address] Home Care Provider Internal Medicine 12/03/21 Pollution Control Technician Relationship Specialty Start Date End Date Tab Dupont [address] [place] [phone] PCP - General Internal Medicine 05/19/24 Joan Patel MD [address] [place] [address] 3 [place] [address] Surgeon Urology 05/05/24 Goals (unrecognized section and [...] ago) 0900 (Not Given - Provider: Allie Grififn RN - Reason: Patient/family refused)2100 (Not Given - Provider: Erika Li RN - Reason: Patient/family refused) 0905 (Not Given - Provider: Faby Maxwell RN - Reason: Patient/family refused) enoxaparin (Lovenox) syringe 40 mg 40 mg, SubCUTAneous, Every 24 hours scheduled (Daily), First dose on Thu04/15/24 at 0900, Indication of Use: Prophylaxis-DVT/PE, Indications: Prophylaxis of Venous Thromboembolism, On hold since 04/16/2024 at 0816 until manually unheld 0900 (Dose Auto Held - Provider: Pedro Luis Matos MD) 0900 (Dose Auto Held - Provider: Pedro Luis Matos MD) 0900 (Dose Auto Held - Provider: Pedro Luis [...] 1102 (New Bag - Provider: Faby Maxwell, RN)1132 (Stopped - Provider: Faby Maxwell, RN) ferrous sulfate tablet 325 mg 325 mg, Oral, Daily with breakfast, First dose on Thu04/15/24 at 0800 0832 (Given - Provider: Allie Griffin, LIBRADO) 0828 (Given - Provider: Allie Griffin, LIBRADO) 0905 (Given - Provider: aFby Maxwell, RN) fluconazole in NS (Diflucan) IVPB 400 mg (CANCELED) 400 mg, IntraVENous, at 100 mL/hr, Administer over 120 Minutes, Every 24 hours, First dose on Thu04/14/24 at 2300, premix bag, Coverage: Fungal NOS, 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, Infection Site: Urinary Tract 0114 (Stopped - Provider: Jacki Middleton RN)2306 (New Bag - Provider: Marino Trevizo, LIBRADO) 0106 (Stopped - Provider: Marino Trevizo, LIBRADO) insulin glargine (Lantus) injection 45 Units 45 Units, SubCUTAneous, Nightly, First dose (after last modification) on Thu04/15/24 at 2030 2106 (Given - Provider: Marino Trevizo, RN) 2027 (Given - Provider: Erika Li, LIBRADO) Insulin Lispro (Humalog) injection 0-12 Units(Linked [...] 0-12 Units, SubCUTAneous, Nightly, First dose on Thu04/16/24 at 2100, If continuous tube feedings/TPN/NPO, give correction dose based on result, no reduction in dose. If eating or bolus tube feeding: Medium Dose Correction Algorithm Glucose: Dose: LESS than 139 No Insulin 140-199 2 Unit 200-249 4 Units 250-299 6 Units 300-349 8 Units 350-400 10 Units Above 400 12 Units 2106 (Given - Provider: Marino Trevizo, LIBRADO) 2027 (Given - Provider: Erika Li RN) linaGLIPtin (Tradjenta) tablet 5 mg 5 mg, Oral, Daily, First dose on Thu04/15/24 at 0900, Substituted for alogliptin (NESINA). 0832 (Given - Provider: Allie Griffin RN) 0828 (Given - Provider: Allie Griffin RN) 0904 (Given - Provider: Faby Maxwell, LIBRADO) magnesium sulfate in D5W IVPB 1,000 mg [...] Minutes, Every 8 hours, First dose on 04/16/24 at 1730, Meropenem Med-Surg/Crit Care Init Dosing HARINDER 8, Top Spotter cl >=50, 3h Mini-Bag Plus bag, Suspected [...] Erika Li RN)0336 (Stopped - Provider: Erika iL RN) mirtazapine (Remeron) tablet 7.5 mg 7.5 mg, Oral, Nightly, First dose on Thu04/14/24 at 2245 2106 (Given - Provider: Marino Trevizo RN) 2028 (Given - Provider: Erika Li RN) polyethylene glycol (PEG) 3350 (Miralax) packet 17 g 17 g, Oral, Daily, First dose on Thu04/15/24 at 0900 0900 (Not Given - Provider: Allie Griffin RN - Reason: Patient/family refused) 0900 (Not Given - Provider: Allie Griffin RN - Reason: Patient/family refused) 0904 (Not Given - Provider: Faby Maxwell RN - Reason: Patient/family refused) potassium chloride CR (Klor-Con M10) ER tablet 40 mEq (COMPLETED) 40 mEq, Oral, Once, On 04/18/24 at 1230, For 1 dose, Best given with food and plenty of water to minimize gastric irritation. Do not crush or chew. 1526 (Given - Provider: Allie Griffin RN) pregabalin (Lyrica) capsule 200 mg 200 mg, Oral, 3 times daily, First dose on Thu04/14/24 at 2245 0832 (Given - Provider: Allie Griffin RN)1525 (Given - Provider: Allie Griffin RN)2106 (Given - Provider: Marnio Trevizo, LIBRADO) 0828 (Given - Provider: Allie Griffin RN)1620 (Given - Provider: Allie Griffin RN)2028 (Given - Provider: Erika Li RN) 0904 (Given - Provider: Faby Maxwell, LIBRADO)1300 (Given - Provider: Faby Maxwell, RN) sodium chloride 0.9% (NS) flush 10 mL 10 mL, IntraVENous, Every 12 hours scheduled (2 times per day), First dose on Thu04/14/24 at 2245 0834 (Given - Provider: Allie Griffin RN)2112 (Given - Provider: Marino Trevizo RN) 0921 (Given - Provider: Allie Griffin RN)2100 (Given - Provider: Erika Li, LIBRADO) 0905 (Given - Provider: Faby Maxwell, LIBRADO) tamsulosin (Flomax) 24 hr capsule 0.4 mg 0.4 mg, Oral, Daily, First dose on Thu04/15/24 at 0900, Do not crush, chew, or split. 0832 (Given - Provider: Allie Griffin RN) 0828 (Given - Provider: Allie Griffin RN) 0904 (Given - Provider: Faby Maxwell, LIBRADO) PRN [...] daily PRN, muscle spasms, Starting on Fabiola 04/14/24 at 2240 dextrose 5 % infusion 100 mL/hr, IntraVENous, PRN, Blood sugar less than 70mg/dL, Starting on Thu04/14/24 at 2240, Start infusion following administration of dextrose 50% or glucagon. dextrose 50 % solution 12.5 g 12.5 g, IntraVENous, PRN, low blood sugar, Blood glucose less than 70 mg/dL and patient NOT ALERT or NPO., Starting on Thu04/14/24 at 2240, If patient does not respond [...] hours PRN, moderate pain (4-6), Starting on Fabiola 04/14/24 at 2010, If oral and IV narcotics ordered, use [...] sedation for opioid reversal - MUST notify distribution superintendent provider immediately after first dose, may give [...] 8 hours PRN, nausea, vomiting, Starting on Thu04/14/24 at 2240, 1st Line. If inadequate response [...] Allie Griffin RN)1526 (Given - Provider: Allie Griffin RN) 1619 (Given - Provider: Allie Griffin RN)2028 (Given - Provider: Erika Li RN) 0405 (Given - Provider: Erika Li RN) [...] (38 C), Starting on Thu04/14/24 at 2240, Maximum dose of acetaminophen is [...] to surgery. 1115 (Given - Provider: Karlee Bell RN) aspirin EC tablet 81 mg 81 mg, Oral, Daily, First dose on Fabiola 05/05/24 at 1700, Do not crush, chew, or split. 1910 (Given - Provider: Carmel Merritt, LIBRADO) 0839 (Given - Provider: Bianca Rodgers, LIBRADO) ceFAZolin in dextrose 4% (Ancef) IVPB 2,000 mg (COMPLETED) 2,000 mg, IntraVENous, Administer over 30 Minutes, Synthetic Cloth Binding Cutter to O.R., On Fabiola 05/05/24 at 1115, For 1 dose, Preprocedure, Administer 60 minutes prior to surgery. premix bag, Suspected Indication (Select all that apply): Surgical Prophylaxis 1532 (Given - Provider: Jj Flores CRNA) cefTRIAXone (Rocephin) 1,000 mg in sodium chloride 0.9 % 50 mL IVPB Mini-Bag Plus 1,000 mg, IntraVENous, at 100 mL/hr, Administer over 30 Minutes, Every 24 hours, First dose on Fabiola 05/05/24 at 2300, Mini-Bag Plus bag, Suspected Indication (Select all that apply): Urinary Tract Infection 2259 (New Bag - Provider: Rosemary Suggs RN)2329 (Stopped - Provider: Rosemary Suggs RN) 2300 (Canceled Entry - Provider: Automatic Discharge Provider - Comment: Automatically canceled at discontinue of medication order) enoxaparin (Lovenox) syringe 40 mg 40 mg, SubCUTAneous, Every 24 hours scheduled (Daily), First dose on Thu05/05/24 at 1700, Indication of Use: Prophylaxis-DVT/PE, Indications: Prophylaxis of Venous Thromboembolism 1911 (Given - Provider: Carmel Merritt RN) 0839 (Given - Provider: Bianca Rodgers RN) famotidine (Pepcid) tablet 20 mg (COMPLETED)(Linked Group 1) 20 mg, Oral, Once, On Thu05/05/24 at 1115, For 1 dose, Preprocedure, IV or Oral 1129 (Given - Provider: Karlee Bell RN) insulin glargine (Lantus) injection 45 Units [...] 7.5 mg, Oral, Nightly, First dose on Fabiola 05/05/24 at 2100 205 (Given - Provider: Rosemary Suggs, LIBRADO) 2100 (Canceled Entry - Provider: Automatic Discharge Provider - Comment: Automatically canceled at discontinue of medication order) pregabalin (Lyrica) capsule 200 mg 200 mg, Oral, 3 times daily, First dose on Fabiola 05/05/24 at 1900 1910 (Given - Provider: Carmel Merritt RN) 0839 (Given - Provider: Bianca Rodgers RN)1415 (Given - Provider: Bianca Rodgers RN)2100 (Canceled Entry - Provider: Automatic Discharge Provider - Comment: Automatically canceled at discontinue of medication order) Continuous Medication Order 05/04/2024 05/05/2024 05/06/2024 lactated Ringer's (LR) infusion 50 mL/hr, IntraVENous, Continuous, Starting on Fabiola [...] than 100.4 F (38 C), Starting on Thu05/05/24 at 1657, Maximum dose of acetaminophen is 4000 mg from all sources in 24 hours. 1414 (Given - Provid er: Bianca Rodgers RN) bisacodyl (Dulcolax) EC tablet 5 mg 5 mg, Oral, Daily PRN, constipation, Starting on Thu05/05/24 at 1654, 2nd line for treatment of constipation. Do not give within 1 hour of antacids, milk, or dairy products. Do not crush, chew, or split. cyclobenzaprine (Flexeril) tablet 10 mg 10 mg, Oral, 3 times daily PRN, muscle spasms, Starting on Thu05/05/24 at 1654 1414 (Given - Provid er: Bianca Rodgers RN) dextrose 5 % infusion 100 mL/hr, IntraVENous, PRN, Blood sugar less than 70mg/dL, Starting on Thu05/05/24 at 1821, Start infusion following administration of [...] (7-10), Starting on Fabiola 05/05/24 at 1655 1910 (Given - Provider: Carmel [...] notify physician 1129 (Given - Provider: Karlee Bell, LIBRADO) iopamidol (Isovue-300) 61 % injection (CANCELED) As needed, Starting on Fabiola 05/05/24 at 1631, Intraprocedure 1631 (Given - Provider: Joan Patel MD) naloxone (Narcan) injection 0.4 mg 0.4 mg, IntraVENous, Every 5 min PRN, opioid reversal, respiratory depression, Starting on Thu05/05/24 at 1816, +++ For RR <10, pinpoint pupils, over sedation for opioid reversal - MUST notify distribution superintendent provider immediately after first dose, may give IM or SQ if no IV access +++ ondansetron (Zofran) injection 4 mg(Linked Group 4) 4 mg, IntraVENous, Every 6 hours PRN, nausea, vomiting, Starting on Thu05/05/24 at 1657, 1st Line. Give IV if patient is unable to take orally. If inadequate response within 60 minutes, proceed to next-line agent or contact provider if no further options ordered. ondansetron ODT (Zofran-ODT) disintegrating tablet 4 mg(Linked Group 4) 4 mg, Oral, Every 8 hours PRN, nausea, vomiting, Starting on Thu05/05/24 at 1657, 1st Line. If inadequate response within 60 minutes, proceed to next-line agent or contact provider if no further options ordered. Patient should allow tablet to dissolve on tongue. Do not remove from blister pack until just before administering. oxyCODONE (Roxicodone) immediate release tablet 5 mg (COMPLETED)(Linked Group 5) 5 mg, Oral, PRN, moderate pain (4-6), Starting on Thu05/05/24 at 1657, For 1 dose, Recovery (only), PHASE II 1746 (Given - Provider: Evelyne Mulligan, LIBRADO) phenazopyridine (Pyridium) tablet 100 mg 100 mg, Oral, Every 6 hours PRN, bladder spasms, Pain, Starting on Thu05/05/24 at 1658 polyethylene glycol (PEG) 3350 (Miralax) packet 17 g 17 g, Oral, Daily PRN, constipation, Starting on Thu05/05/24 at 1657, 1st line for treatment of constipation - give scheduled if no bowel movement in past 24 hours. sodium chloride 0.9 % irrigation solution (CANCELED) As needed, Starting on Thu05/05/24 at 1541, Intraprocedure 1541 (Given - Provider: [...] than 100.4 F (38 C), Starting on Thu05/05/24 at 1657, Maximum dose of acetaminophen is 4000 mg from all sources in 24 hours. Or acetaminophen (Tylenol) suppository 650 mgJump to med 650 mg, Rectal, Every 6 hours PRN, mild pain (1-3), fever, For temp greater than 100.4 F (38 C), Starting on Thu05/05/24 at 1657, Administer if oral route cannot be used. Maximum dose of acetaminophen is 4000 mg from all sources in 24 hours. Group 4: ondansetron ODT (Zofran-ODT) disintegrating tablet 4 mgJump to med 4 mg, Oral, Every 8 hours PRN, nausea, vomiting, Starting on Thu05/05/24 at 1657, 1st Line. If inadequate response [...] Martin RN) 0837 (Given - Provider: Elly Cormier, LIBRADO) 0812 [...] Kim Benz RN)0930 (Stopped - Provider: Dedrick Martin, LIBRADO)1308 (New Bag - Provider: Dedrick Martin, RN)1708 (Stopped - Provider: Dedrick Martin, RN) docusate sodium (Colace) capsule 100 mg 100 mg, Oral, 2 times daily, First dose on Thu05/18/24 at 0900 0900 (Not Given - Provider: Dedrick Martin RN - Reason: Patient/family refused)2045 (Not Given - Provider: Aleksandra Pinon RN [...] RN) 0838 (Given - Provider: Elly Cormier RN - Comment: 154) 0811 (Given - [...] Pinon RN) 2109 (Given - Provider: Bev Carey, RN) 2099 (Canceled Entry - Provider: Automatic Discharge Provider - Comment: Automatically canceled at discontinue of medication order) mirtazapine (Remeron) tablet 7.5 mg 7.5 mg, Oral, Nightly, First dose on Thu05/18/24 at 2100 2045 (Given - Provider: Aleksandra Pinon RN) 2109 (Given - Provider: Bev Carey, RN) 2099 (Canceled Entry - Provider: Automatic Discharge Provider - Comment: Automatically canceled at discontinue of medication order) oxyCODONE (Roxicodone) immediate release tablet 15 mg 15 mg, Oral, 4 times daily, First dose on Thu05/19/24 at 1700 0839 (Given - Provider: Dedrick Martin RN)1308 (Given - Provider: Dedrick Martin, RN)1834 (Given - Provider: Dedrick Martin, LIBRADO)2203 (Given - Provider: Aleksandra Pinon RN) 0837 [...] 0838 (Given - Provider: Elly Cormier RN) 0812 [...] PRN, indigestion, heartburn, Starting on Thu05/18/24 at 338 cyclobenzaprine (Flexeril) tablet 10 mg 10 mg, Oral, 3 times daily PRN, muscle spasms, Starting on Thu05/18/24 at 338 dextrose 5 % infusion 100 mL/hr, IntraVENous, PRN, Blood sugar less than 70mg/dL, Starting on Thu05/18/24 at 338, Start infusion following administration of dextrose 50% or glucagon. dextrose 50 % solution 12.5 g 12.5 g, IntraVENous, PRN, low blood sugar, Blood glucose less than 70 mg/dL and patient NOT ALERT or NPO., Starting on Thu05/18/24 at 033, If patient does not respond within 5 [...] low blood sugar, Starting on Thu05/18/24 at 033, If blood glucose less than 50 mg/dL [...] at 0600 0534 (Given - Provider: Kim Benz, RN)1101 (Given - Provider: Dedrick Martin, RN)2052 (Given - Provider: Aleksandra Pinon, RN) 0339 (Given - Provider: Aleksandra Pinon, RN) naloxone (Narcan) injection 0.4 mg 0.4 mg, IntraVENous, Every 5 min PRN, opioid reversal, respiratory depression, Starting on Thu05/18/24 at 0051, +++ For RR <10, pinpoint pupils, over sedation for opioid reversal - MUST notify distribution superintendent provider immediately after first dose, may give [...] sodium chloride 0.9 % 100 mL IVPB (Add-Pecos) 3,000 mg, IntraVENous, at 200 mL/hr, Administer over 30 Minutes, Every 6 hours, First dose on Thu04/26/25 at 1230, ADD-Pecos bag, Suspected Indication (Select all that apply): Bone and Joint Infection 1519 (New Bag - Provider: Christel Brower RN)1616 (Stopped - Provider: Christel Brower RN)2105 (New Bag - Provider: Valarie King RN)2155 (Stopped - Provider: Valarie King RN) 0253 (New Bag - Provider: Valarie King RN)0531 (Stopped - Provider: Valarie King RN)0853 (New Bag - Provider: Cheryl Foster RN)0947 (Stopped - Provider: Cheryl Foster RN)1506 (New Bag - Provider: Cheryl Foster RN)1619 (Stopped - Provider: Cheryl Foster RN)2125 (New Bag - Provider: Valarie King RN) 0013 (Stopped - Provider: Valarie King RN)0402 (New Bag - Provider: Valarie King RN)0441 (Stopped - Provider: Valarie King RN)1107 (New Bag - Provider: Joann King RN)1139 (Stopped - Provider: Joann King, LIBRADO)1608 (New Bag - Provider: Joann King, LIBRADO)1659 (Stopped - Provider: Joann King, LIBRADO)2100 (Canceled Entry - Provider: Automatic Discharge Provider - Comment: Automatically canceled at discontinue of medication order) apixaban (Eliquis) tablet 5 mg 5 mg, Oral, 2 times daily, First dose on Thu04/22/25 at 0245, Anticoagulant 0900 (Dose Auto Held)0925 (Unheld by provider - Provider: Berhane Moreno MD)2101 (Given - Provider: Valarie King, RN) 0853 (Given - Provider: Cheryl Foster RN)2123 (Given - Provider: Valarie King RN) 0908 (Given - Provider: Joann King, LIBRADO)2100 (Canceled Entry - Provider: Automatic Discharge Provider - Comment: Automatically canceled at discontinue of medication order) chlorhexidine (Hibiclens) 4 % solution Topical, Daily, First dose on 04/23/25 at 1400 1305 (Given - Provider: Christel Brower RN) 1356 (Given - Provider: Cheryl Foster, LIBRADO) 1322 (Given - Provider: Joann King, LIBRADO) DULoxetine (Cymbalta) DR capsule 30 mg 30 mg, Oral, Daily, First dose on 04/22/25 at 0800, Do not crush or chew. 08 (Given - Provider: Christel Brower RN) 0853 [...] morning, First dose (after last modification) on Fabiola 04/27/25 at 0900 0852 (Given - Provider: Cheryl Foster RN) 0907 (Given - Provider: Joann King RN) Insulin Lispro (Humalog) injection 0-18 Units(Linked [...] Foster RN) 0907 (Given - Provider: Joann King RN)1321 (Given [...] 2105 (Given - Provider: Valarie King RN) 2124 (Not Given - Provider: Valarie King RN [...] Christel Brower RN)1201 (Stopped - Provider: Christel Witting, RN) 1024 (New Bag - Provider: Cheryl Foster RN)1150 (Stopped - Provider: Cheryl Foster RN) 0908 (New Bag - Provider: Joann King RN)1023 (Stopped - Provider: Joann King RN) meropenem (Merrem) 2,000 mg in sodium chloride 0.9 % 100 mL IVPB (CANCELED) 2,000 mg, IntraVENous, at 33.3 mL/hr, Administer over 180 Minutes, Every 8 hours, First dose on 04/22/25 at 1400, For 22 doses, Mini-Bag Plus bag, Suspected Indication (Select all that apply): Bone and Joint Infection 0010 (Stopped - Provider: Valarie King RN)0550 (New Bag - Provider: Valarie King RN)0852 (Stopped - Provider: Christel Brower RN) midodrine (Proamatine) tablet 10 mg 10 mg, Oral, 3 times daily, First dose on 04/22/25 at 0900 0807 (Given - Provider: Christel Brower RN)1304 (Given - Provider: Christel Brower RN)2102 (Given - Provider: Valarie King RN) 0852 (Given - Provider: Cheryl Foster RN)1354 (Given - Provider: Cheryl Foster RN)2124 (Given - Provider: Valarie King RN) 0908 (Given - Provider: Joann King RN)1608 (Given - Provider: Joann King RN)2100 (Canceled [...] Oral, 4 times daily, First dose on 7/19/25 at 0900 0807 (Given - Provider: Christel Brower RN)1244 (Given - Provider: Christel Brower RN)1704 (Given - Provider: Christel Brower RN)210 (Given - Provider: Valarie King RN) 0852 (Given - Provider: Cheryl Foster RN)1354 (Given - Provider: Cheryl Foster, RN)1727 (Given - Provider: Cheryl Foster RN)212 (Given - Provider: Valarie King RN) 0908 (Given - Provider: Joann King RN)1321 (Given - Provider: Joann King, LIBRADO)1745 (Given - Provider: Joann King RN)2100 (Canceled [...] King RN)1321 (Given - Provider: Joann King, LIBRADO)2100 (Canceled [...] Patient/family refused) 0852 (Given - Provider: Cheryl Foster, RN)214 (Not Given - Provider: Valarie King [...] IV Fluids Infusing)1730 (Given - Provider: Cheryl Foster, LIBRADO) 0545 (Not Given - Provider: Valarie King RN - Reason: IV Fluids Infusing)1745 (Given - Provider: Joann King, LIBRADO) tamsulosin (Flomax) 24 hr capsule 0.4 mg 0.4 mg, Oral, Daily, First dose on 04/22/25 at 0900, Do not crush, chew, or split. 0807 (Given - Provider: Christel Brower RN) 0852 (Given - Provider: Cheryl Foster, LIBRADO) 0908 (Given - Provider: Joann King, LIBRADO) vancomycin IVPB 1500 mg in 250 mL NS (premix) 1,500 mg, IntraVENous, at 125 mL/hr, Administer over 120 Minutes, Every 12 hours, First dose (after last reorder) on 04/22/25 at 1230, premix bag, Suspected Indication (Select all that apply): Skin and Soft Tissue Infection 0039 (New Bag - Provider: Valarie King, LIBRADO)0253 (Stopped - Provider: Valarie King, LIBRADO)1244 (New Bag - Provider: Christel Brower, RN)1508 (Stopped - Provider: Christel Brower, RN) 0046 (New Bag - Provider: Valarie King RN)0247 (Stopped - Provider: Valarie King, RN)1222 (New Bag - Provider: Cheryl Foster, RN)1427 (Stopped - Provider: Cheryl Foster, RN) 0100 (New Bag - Provider: Valarie King RN)0328 (Stopped - Provider: Valarie King RN)1322 (New Bag - Provider: Joann King, LIBRADO)1525 (Stopped - Provider: Joann King RN) PRN Medication Order 04/26/2025 04/27/2025 04/28/2025 acetaminophen [...] Christel Brower RN)2100 (Given - Provider: Valarie King, LIBRADO) 0853 (Given - Provider: Cheryl Foster RN)2124 [...] times daily with meals, First dose on 04/22/25 at 0800, High Dose Correction Algorithm Glucose: Dose: LESS than 150 No Insulin 150-199 3 Units 200-249 6 Units 250-299 9 Units 300-349 12 Units 350-400 15 Units Above 400 18 Units And Insulin Lispro (Humalog) injection 0-18 Units (CANCELED) 0-18 Units, SubCUTAneous, Nightly, First dose on 04/22/25 at 2100, If eating or bolus tube feeding: High Dose Correction Algorithm Glucose: Dose: LESS than 150 No Insulin 150-199 3 Units 200-249 6 Units 250-299 9 Units 300-349 12 Units 350- 400 15 Units Above 400 18 Units, On [...] BE BASED ON THE PRIMARY CLINICAL RECORDS. [facility]. provides no warranty or guarantee of the accuracy or completeness of information in this document.
[2025-05-09 08:57] LABS: Hematocrit 36.0 % (40-54); Hemoglobin 11.5 g/dL (13.0-16.5); Mean Corp Hgb Conc 31.9 g/dL (32-36); Mean Corpuscular Volume 91.1 fL (80-94); Mean Platelet Vol. 10.3 fl (6.2-12.0); Platelet Count 285 K/mm3 (150-450); RBC Distribution Width CV 15.9 % (11.6-14.6); RBC Distribution Width SD 53.3 fl (35.1-43.9); Red Blood Count 3.95 M/mm3 (4.6-6.2); White Blood Count 5.7 K/mm3 (4.4-11.0)
[2025-05-09 08:58] LABS: AST(SGOT) 15 U/L (<=37); Alanine Aminotransfer ALT/SGPT 9 U/L (<=46); Albumin, Serum 3.1 g/dL (3.4-4.8); Alkaline Phosphatase 117 U/L (40-129); Anion Gap 12 (5-15); BUN 6 mg/dL (4-19); BUN/Creat Ratio 12.7 RATIO (10-20); CRP 32.80 mg/L (0.0-3.0); Calcium,Total 8.8 mg/dL (7.6-11.0); Carbon Dioxide 19.7 mmol/L (21.0-32.0); Chloride 106 mmol/L (98-108); Globulin 4.0 g/dL (2.2-4.2); Glucose 145 mg/dL (70-99); Potassium 3.5 mmol/L (3.3-5.1)
== END ==
LOC: OLS.SANC 05:00
PROVIDERS: PCP Family Medicine; Visit Provider Internal Medicine
DX: D64.9 Anemia, unspecified (principal); E11.9 Type 2 diabetes mellitus without complications; G82.20 Paraplegia, unspecified
CPT/HCPCS: 36415; 80053; 85027; 85652; 86140

== ENCOUNTER → 2025-05-11 05:00 | Outpatient (REF) | payer MEDICAID, SELFPAY ==
--- OUTSIDE RECORDS SUMMARY | 2025-05-11 04:46 | XMS RPT_ITS ---
Start: 1980 DTaP/Tdap/Td Vaccines (1 - Tdap) DTaP/Tdap/Td Vaccines (1 - Tdap) [facility] Start: 1980 Hepatitis A (HAV) Vaccine (optional start 19+ years) Hepatitis A (HAV) Vaccine (optional start 19+ years) [facility] Start: 1980 Hepatitis B vaccine (1 of 3 - Risk 3-dose series) Hepatitis B vaccine (1 of 3 - Risk 3-dose series) [place] Start: 1980 Pneumococcal Vaccine: 50+ (1 of 2 - PCV) Pneumococcal Vaccine: 50+ (1 of 2 - PCV) [facility] Start: 1980 Pneumococcal Vaccine: 50+ Years (1 of 2 - PCV) Pneumococcal Vaccine: 50+ Years (1 of 2 - PCV) [facility] Start: 1980 Urine microalbumin profile [facility] Start: 1980 [facility] Start: 1979 ANNUAL PCP TEAM CHRONIC DISEASE VISIT ANNUAL PCP TEAM CHRONIC DISEASE VISIT [facility] Start: 1979 Anxiety Screening Anxiety Screening [facility] Start: 1979 Depression Screening Depression Screening [facility] Start: 1979 Diabetes: Urine Albumin-Creatinine Ratio for Kidney Health Diabetes: Urine Albumin-Creatinine Ratio for Kidney Health [facility] Start: 1979 Diabetic microalbuminuria test Diabetic microalbuminuria test [place], [place] Start: 1979 Hepatitis C screening [facility] Start: 1979 Tetanus + diphtheria + acellular pertussis vaccine (product) Tdap Booster [facility] Start: 1979 [facility] Start: 1977 ONE PNEUMOVAX PRIOR TO AGE 65 ONE PNEUMOVAX PRIOR TO AGE 65 [facility] Start: 1976 HIV screening [facility] Start: 1973 Adult depression screening assessment DEPRESSION SCREENING [facility] Start: 1973 Depression Monitoring Depression Monitoring [facility] Start: 1973 [facility] Start: 1971 3 comp foot exam completed DIABETIC FOOT EXAM [facility] Start: 1971 Diabetic foot examination [facility] Start: 1971 Diabetic retinal exam Diabetic retinal exam [place], [place] Start: 1971 Glaucoma screening [facility] Start: 1971 Hepatitis B screening URINE ALBUMIN:CREATININE RATIO [facility] Start: 1971 Hepatitis C antibody, confirmatory test DILATED RETINAL EXAM [facility] Start: 1971 Preventive dental service [facility] Start: 1967 PNEUMOCOCCAL (1 - PCV) PNEUMOCOCCAL (1 - PCV) [facility] Start: 1967 Pneumococcal 0-64 years Vaccine (1 of 1 - PPSV23) Pneumococcal 0-64 years Vaccine (1 of 1 - PPSV23) [place], [place] Start: 1967 Pneumococcal Vaccine: Pediatrics (0 to 5 Years) and At-Risk Patients (6 to 64 Years) (1 - PCV) Pneumococcal Vaccine: Pediatrics (0 to 5 Years) and At-Risk Patients (6 to 64 Years) (1 - PCV) [facility] Start: 1967 Pneumococcal Vaccine: Pediatrics (0 to 5 Years) and At-Risk Patients (6 to 64 Years) (1 of 2 - PCV) Pneumococcal Vaccine: Pediatrics (0 to 5 Years) and At-Risk Patients (6 to 64 Years) (1 of 2 - PCV) [facility] Start: 1967 [facility] Start: 1966 COVID-19 VACCINE (#1) COVID-19 VACCINE (#1) [facility] Start: 1962 MMR Vaccines (1 of 1 - Standard series) MMR Vaccines (1 of 1 - Standard series) [facility] Start: 1962 [facility] Start: 02-01-1962 COVID-19 VACCINE (#1) COVID-19 VACCINE (#1) [facility] Start: 1961 Hepatitis C screening Hepatitis C screen [place], [place] Start: 1961 HIV screening [facility] Start: 1961 Lipid panel [facility] Start: 1961 Medicare Annual Wellness (AWV) Medicare Annual Wellness (AWV) [facility] Start: 1961 Screening for malignant neoplasm of colon [facility] Start: 1961 [facility] End: 08-22-2025 25 hydroxy includes fractions if performed VITAMIN D, 25-HYDROXY Lab Routine Osteoporosis, unspecified osteoporosis type, unspecified pathological fracture presence 1 Occurrences starting 08/22/2024 until 08/22/2025 [facility] Comment on above: 1 Occurrences starting 08/22/2024 until 08/22/2025 Aerobic and Anaerobi c Culture with Stain [employer] Work Phone: Comment on above: Release Upon Ordering for 1 Occurrences starting 05/05/2024 Aerobic and Anaerobi c Culture with Stain [employer] Work Phone: Comment on above: Release Upon Ordering for 1 Occurrences starting 04/24/2025 End: 08-22-2025 Assay of parathormone PARATHYROID HORMONE INTACT Lab Routine Osteoporosis, unspecified osteoporosis type, unspecified pathological fracture presence 1 Occurrences starting 08/22/2024 until 08/22/2025 [facility]: 1 Occurrences starting 08/22/2024 until 08/22/2025 Bacteria identified in Blood by Culture [facility] [employer] Work Phone: End: 04-14-2024 Bacteria identified in Lower respiratory specimen [facility] B[facility] identified in Unspecified specimen by Aerobe culture Culture, Aerobic Bacteria with Gram Stain Microbiology Routine Calculus of ureter 05/05/2024 4:14 PM EDT [facility] End: 05-05-2024 Bacteria identified in Unspecified specimen by Anaerobe culture [facility] [employer] Comment on above: Once for 1 Occurrences starting 05/05/20 24 until 05/05/2024 Bacteria identified in Unspecified specimen by Anaerobe culture [facility] [employer] End: 05-23-2023 Bacteria identified in Urine by Culture [facility] Work Phone: Comment on above: Once (Lab) for 1 Occurrences starting until 05/23/2023 Basic metabolic 2000 panel Basic Metabolic Panel Lab Routine Daily until discontinued starting 10/25/2020, 1 completed [facility] [place] Comment on above: Daily until discontinued starting 2020, 1 completed End: 08-22-2025 Basic metabolic 2000 panel - Serum or Plasma BASIC METABOLIC PANEL Lab Routine Osteoporosis, unspecified osteoporosis type, unspecified pathological fracture presence 1 Occurrences starting 08/22/2024 until 08/22/2025 [employer] Work Phone: Comment on above: 1 Occurrences starting 08/22/2024 until 08/22/2025 [facility] Comment on above: Release Upon Ordering for 1 Occurrences starting 05/05/2024 CBC Auto Differential CBC Auto D ifferential Lab Routine Daily until discontinued starting 10/25/2020, 1 completed [employer] Comment on above: Daily until discontinued starting 2020, 1 completed End: 04-14-2024 Fungus identified in Unspecified specimen by Culture [employer] Work Phone: Fungus identified in Unspecified specimen by Culture Fungal Culture Microbiology Routine Calculus of ureter 05/05/2024 4:14 PM EDT [employer] End: 04-14-2024 Lactic acid with reflex [employer] Work Phone: Oxygen therapy [[facility] Data Set] Initiate Oxygen Therapy Protocol Respiratory Care Routine Daily until discontinued starting 10/24/2020 [employer] Comment on above: Daily until discontinued starting 2020 POCT glucose [facility] [employer] Comment on above: 4X Daily (AC & HS) until discontinued st arting 10/25/2020 As Needed until disc ontinued starting 10/24/2020 End: 08-22-2025 Protein electrophoretic fractj&quantj serum ELECTROPHORESIS, SERUM PROTEIN Lab Routine Osteoporosis, unspecified osteoporosis type, unspecified pathological fracture presence 1 Occurrences starting 08/22/2024 until 08/22/2025 [facility] on above: 1 Occurrences starting 08/22/2024 until 08/22/2025 Spirometry panel Incentive negin metry RT Respiratory Care Routine Every 2hr while awake until discontinued starting 10/24/2020 [employer] Comment on above: Every 2hr while awake until discontinued starting 10/24/2020 End: 04-14-2024 Urinalysis complete panel - Urine [employer] Work Phone: Immunizations Immunization Date Immunization Notes Care Provider Nessa peñaloza 04-15-2024 Hemoglobin A1C [facility] 04-04-2024 Hemoglobin A1C [facility] Payers Date Payer Category Payer Medicare (Managed Care) 1.2. [id number] 2024 Medicare O [employer] MEDIC[employer] [id number] 2024 Medicare [id number] 2024 Self-pay [id number] 2024 Medicare [id number]. [id number] 2024 Medicare FFS MEDICARE [id number] 2024 Unknown [id number] 2024 Unknown [id number] 2022 Medicaid [id number]. [id number] 2021 Medicaid [facility] MEDICAID [facility] [employer] MEDICAID [id number] 2021-Present [phone] [address] [place] [address] Medicaid [id number] 2016 Unknown [id number] 2008 Unknown 1961 Unknown [id number] 2.16.840.1.896954.3.579.2. 182 1961 Unknown [id number] 2.16.840.1.874100.3.579.2. 182 1961 Unknown [id number] 2.16.840.1.994714.3.579.2. 732 1961 Unknown [id number] 2.16.840.1.242379.3.579.2. 732 1961 Unknown [id number] 2.16.840.1.509993.3.579.2. 732 1961 Unknown [id number] 2.16.840.1.450288.3.579.2. 732 1961 Unknown [id number] 2.16.840.1.647862.3.579.2. 732 1961 Unknown [id number] 2.16.840.1.928599.3.579.2. 732 1961 Unknown [id number] 2.16.840.1.754154.3.579.2. 732 1961 Unknown [id number] 2.16.840.1.653337.3.579.2. 732 1961 Unknown [id number] 2.16.840.1.262244.3.579.2. 732 1961 Unknown [id number] 2.16.840.1.984043.3.579.2. 732 1961 Unknown [id number] 2.16.840.1.113099.3.579.2. 732 1961 Unknown [id number] 2.16.840.1.842777.3.579.2. 732 Unknown [id number] 2.16.840.1.867350.3.579.2. 462 Unknown [id number] 2.840.1.128847.3.579.2. 462 Unknown [id number] 2.16.840.1.926972.3.579.2. 462 Unknown [id number] 2..840.1.481908.3.579.2. 462 Unknown [id number] 2.840.1.551169.3.579.2. 462 Unknown [id number] 2.840.1.562738.3.579.2. 462 Unknown [id number] 2.840.1.848045.3.579.2. 462 Unknown [id number] 2.840.1.023407.3.579.2. 462 Unknown [id number] 2.840.1.237081.3.579.2. 462 Unknown [id number] 2.840.1.718882.3.579.2. 462 Unknown [id number] 2.840.1.286273.3.579.2. 462 Unknown [id number] 2.840.1.844753.3.579.2. 462 Unknown [id number] 2.840.1.031132.3.579.2. 462 Unknown [id number] 2.840.1.889672.3.579.2. 462 Unknown [id number] 2.840.1.895661.3.579.2. 462 Unknown [id number] 2.840.1.896774.3.579.2. 462 Unknown [id number] 2.840.1.057547.3.579.2. 462 Unknown [id number] 2.840.1.002864.3.579.2. 462 Social History Date Type Detail Facility Start: 10-05-1977 End: 04-27-2024 Tobacco smoking status NHIS Current every day smoker [facility] Start: 10-24-2020 End: 04-27-2024 Tobacco use and exposure Never used [employer] [facility] Start: 10-24-2020 End: 04-24-2025 Alcohol intake Current non-drinker of alcohol (finding) [facility] Start: 10-15-2020 History SDOH Food Worry 1 [facility] Start: 10-15-2020 History SDOH Transport Med [address] [facility] Start: 12-21-2016 Alcohol Comment occ [facility] Start: 1960 Sex Assigned At Not on file [facility] Start: 05-13-2023 End: 05-23-2023 Exposure to SARS-CoV-2 (event) Not sure [facility] Start: 08-09-2013 End: 04-22-2025 Current every day smoker Current every day smoker [facility] Start: 10-05-1977 History of tobacco use Cigarette Smoker [facility] Start: 1960 Sex Assigned At Male [facility] Start: 01-27-2022 End: 02-06-2022 Exposure to SARS-CoV-2 (event) Unable to assess [facility] Start: 12-29-2023 End: 04-22-2025 Gender identity Not on file [facility] Tobacco smoking stat [facility] Tobacco smoking consumption unknown [facility] Has the [employer], [employer], or [employer]rist[employer] threatened to shut off services in your home in past 12Mo No [facility] How often to you hav e a drink containing alcohol? Never [facility] How many standard drinks containing alcohol do you have on a typical day? Patient does not drink [facility] [employer] (I/We) worried wheth er (my/our) food would run out before (I/we) got money to buy more. Never true [facility] [employer] Start: 05-05-2022 End: 11-27-2023 Sex Male (finding) [facility] Work Phone: Start: 11-29-2021 Gender identity Identifies as male gender (finding) [facility] Start: 10-23-2023 Sexual orientation Heterosexual (finding) [facility] Medical Equipment Procedure Code Equipment Code Equipment Origin al Text Equipment Identifier Dates Graft Infuse 20g a Medium Bovine Collagen Rhbmp-2 2x1in Bone Vial Absorbable - [id number] Start: 01-14-2022 Substitute [employer] Calcium Phosphate Collagen Bone Graft Putty Void - [id number] Start: 12-12-2021 Substitute [employer] 10cm Bone Graft Strip 12ml Spine - [id number] Start: 01-14-2022 Substitute [employer] 10cm Bone Graft Strip 12ml Spine - [id number] Start: 01-14-2022 Creo Thread 6.5 X [...] 04-14-2024 Stent Uret 6fr 2 2cm Wo - [id number] Start: 05-05-2024 Stent Uret 6fr 2 2cm Wo - [id number] Start: 05-05-2024 Functional Status Date Assessment Result Facility 04-21-2025 Total score [AUDIT-C] 0 04/21/20 25 10:31 PM EDT Giovana Barnard, RN [facility] 02-22-2025 Are you deaf, or do you have serious difficulty hearing No 02/22/2025 8:55 PM EDT Talisha Duval RN [facility] 02-22-2025 Are you blind, or do you have serious difficulty seeing, even when wearing glasses No 02/22/2025 8:55 PM EDTalisha Singh RN No [facility] 02-22-2025 Do you have serious difficulty walking or climbing stairs Yes 02/22/2025 8:55 PM EDT Talisha Duval RN Yes [facility] 02-22-2025 Do you have difficul ty dressing or bathing Yes 02/22/2025 8:55 PM EDT Talisha Duval RN Yes [facility] 02-22-2025 Because of a physica l, mental, or emotional condition, do you have difficulty doing errands alone such as visiting a physician's office or shopping Yes 02/22/2025 8:55 PM EDT Talisha Duval RN Yes [facility] 01-24-2022 Are you deaf, or do you have serious difficulty hearing No 01/24/2022 5:46 PM JARODT Tiffanie Womack RN No [facility] 01-24-2022 Are you blind, or do you have serious difficulty seeing, even when wearing glasses No 01/24/2022 5:46 PM EDTiffanie Butler RN No [facility] 01-24-2022 Do you have serious difficulty walking or climbing stairs Yes 01/24/2022 5:46 PM EDT Tiffanie Womack RN Yes [facility] 01-24-2022 Do you have difficul ty dressing or bathing Yes 01/24/2022 5:46 PM Tiffanie Boston RN Yes [facility] 01-24-2022 Because of a physica l, mental, or emotional condition, do you have difficulty doing errands alone such as visiting a physician's office or shopping No 01/24/2022 5:46 PM Tiffanie Boston RN No [facility] Mental Status Date Assessment Result Facility 02-22-2025 Because of a physica l, mental, or emotional condition, do you have serious difficulty concentrating, remembering, or making decisions No 02/22/2025 8:55 PM Talisha Hollingsworth RN No [facility] 01-24-2022 Because of a physica l, mental, or emotional condition, do you have serious difficulty concentrating, remembering, or making decisions No 01/24/2022 5:46 PM EDT Tiffanie Womack RN No [facility] Clinical Notes 01-16-2021 to 04-28-2025 Joann King RN - 04/28/2025 3:38 PM EDTJoann King RN - 04/28/2025 3:38 PM Christa Foster RN - 04/27/2025 2:46 PM EDTBerhane Moreno MD - 04/28/2025 2:45 PM EDTAttachments Note Date & Type Note Facility 04-28-2025 Nurse Note [facility] PICC line clean dry and intact. Aide got pt ready and gathered all belongings. Waiting on transport to arrive. [facility] 04-28-2025 Nurse Note Called report to the [facility]. PICC line clean dry and intact. Aide got pt ready and gathered all belongings. Waiting on transport to arrive. Patient dressings changed as per orders. Patient tolerated well. Left PICC dressing changed patient tolerated well documented in this encounter [facility] 04-28-2025 Note Discharge Summary Anmol Langley : 1960 ADMIT DATE: 04/21/2025 DISCHARGE DATE: 04/28/2025 PRIMARY CARE PHYSICIAN: Walter Alatorre VISIT STATUS: Admission CODE STATUS: Full Code [...] Peripheral neuropathy DM History of chronic indwelling Hudson catheter Anemia Peripheral neuropathy Gastroesophageal flux disease [...] palpable with normal bowel sounds, chronic indwelling Hudson catheter noted. Neurology- Awake alert, answering questions, [...] feeding: High Dos (more content not included)... [facility] 04-28-2025 Hospital course Narrative Images from the original note were not included. Discharge Summary Anmol Salvador Langley : 1960 ADMIT DATE: 04/21/2025 DISCHARGE DATE: 04/28/2025 PRIMARY CARE PHYSICIAN: Walter Alatorre VISIT STATUS: Admission CODE STATUS: Full Code [...] Peripheral neuropathy DM History of chronic indwelling Hudson catheter Anemia Peripheral neuropathy Gastroesophageal flux disease [...] palpable with normal bowel sounds, chronic indwelling Hudson catheter noted. Neurology- Awake alert, answering questions, [...] Complexity: follow up within 7-14 calendar days (53812) [] Severe Complexity: follow up within 7 calendar days (88335) FOLLOW UP TESTING, PENDING RESULTS OR REFERRALS AT TRANSITIONAL CARE VISIT: [] Yes [] No PENDING STUDIES: DISPOSITION: Skilled Facility FACILITY/HOME CARE AGENCY NAME: Follow up with Walter Alatorre PCP - General Internal Medicine [phone] [facility] [place] [id number] [facility] [address] Next Steps: Schedule an appointment as soon as possible for a visit in 1 week(s) [facility] [phone] [place] [phone] Next Steps: Schedule an appointment as soon as possible for a visit Kaela Durand MD Surgical Critical Care General Surgery Trauma Surgery [phone] [facility] [address] Next Steps: Schedule an appointment as soon as possible for a visit in 2 week(s) Savage Alvarez MD Infectious Diseases [phone] [facility] [address] Next Steps: Schedule an appointment as soon [...] 04/28/2025, 2:45 PM documented in this encounter [facility] 04-28-2025 Plan of care note Proteus is sensitive to unasyn. OPAT for unasyn and vancomycin completed and scanned into media with stop date of 06/06. Follow up with Dr. Alvarez. Salvador/w [facility]. Plans for discharge to SNF. Jo-Ann Ortiz MD [facility] [employer] Work Phone: 04-28-2025 Miscellaneous Notes Proteus is sensitive to unasyn. OPAT for unasyn and vancomycin completed and scanned into media with stop date of 06/06. Follow up with Dr. Alvarez. Salvador/w [facility]. Plans for discharge to SNF. Jo-Ann Ortiz MD Confirmed pickup time of 5:30pm on 04/28/25 by [employer] at phone number [phone]. Location of facility drop off is [facility]. [facility] notified on secure chat. Transport requested in Roundtrip in will call to [facility] per [facility]. Care Management Progress Note Short Medical why still here: continues to be treated for osteomyelitis. ID following- awaiting sensitivities for final IV plan. Currently receiving IV unasyn and vanc. PICC Line intact for antic 6wk course. Planned Discharge Disposition: plan for return to [facility]- will NOT need auth. BONE WORKER to place pt in roundtrip under will [...] Planned Discharge Disposition: plan for return to [facility]- will need auth d/t skilled need for IV atb tx. Facility updated and asked to submit for auth. ADELINE complete. Barriers/Today we still Wait: Plan from ID/line placement and auth. Length of Stay (Days): 4 GMLOS: 8.4 Care Management Progress Note Short Medical why still here: Pt continues to be treated for osteomyelitis. ID following- receiving IV merrem and vanc- anticipate assisted tx. Planned Discharge Disposition: Pt from [facility]- met with pt this afternoon- introduced self and role. Verified return when stable. Will need auth if pt has skilled needs (IV atb greater than once a day will qualify). Barriers/Today we still Wait: ID plan/line placement/opat. Length of Stay (Days): 3 GMLOS: 8.4 [facility] transportation. SW reviewed chart. Pt is a LTC resident of [facility]. [place] is responsible for pt transportation for medical appointments. . Return Referral placed to [facility] via [facility] per [facility] request. Await review and response regarding ability to accept. [facility] notified. Care Management Progress Note Short Medical why still here: Pt adm for tx/evaluation of osteomyelitis. OR this am with surgery for debridement of sacral and ischial wounds. 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 Planned Discharge Disposition: Pt from [facility] assisted. Attempted to confirm return with pt however pt sleeping this am- unable to arouse for conversation. Barriers/Today we still Wait: IV atb/ID plan. Length of Stay (Days): 2 GMLOS: 4 Patient states nobody here to update OPERATIVE REPORT Date of Service: 04/24/2025 SURGEON: Kaela Durand MD PARTICIPATING SURGEON: Cari Ling MD and Fei Alcantara MD (Resident) PREOPERATIVE DIAGNOSIS: 1. Left [...] achieved with bovie electrocautery. Two pieces of [place] patch were placed in the wound bed. [...] x 4 cm = 28 cm2 [CPT 35507, 08899] Open biopsy of left ischium [CPT 18877] This note is electronically signed by: Kaela [...] maintained or improved Outcome: Progressing Patient: Anmol Langley : 1960 Date of Evaluation: 04/21/2025 ED Supervising Physician: Brad Campos MD I personally evaluated Anmol Langley and made/approved the management plan and take responsibility for the patient management. In brief, Anmol Langley is a 64 y.o. that presents to the emergency department with concerns for wound infection. Patient is paraplegic secondary to a surgical complication years ago. States that he is at a longterm and they were concerned that his wounds [...] EMS pt was sent here from the [place] for wound infections. Pt has two wound [...] Procedure Abnormality Status --------- ------ Culture, Aerobic Bacteri...[[id number]] Abnormal Preliminary result Anaerobic culture[[id number]] In process Please view results for these [...] LEFT BILATERAL L2-3-4-5 DECOMPRESSION performed by Opal Ayala MD at [facility] OR ORTHOPEDIC SURGERY Right removal of hardware ankle US PLACE URETAL STENT PERC PRE-EXIST TRACT S&I (HISTORICAL) Bilateral 04/14/2024 Dr. Grimm/Bashir [3] No family history on file. [4] [...] Resource Strain: Low Risk (04/24/2023) Received from [facility] Overall Financial Resource Strain (CARDIA) Difficulty of Paying Living Expenses: Not hard at all Food Insecurity: No Food Insecurity (02/17/2025) Received from [facility] Hunger Vital Sign Worried About Running Out of Food in the Last Year: Never true Ran Out of Food in the Last Year: Never true Transportation Needs: No Transportation Needs (02/17/2025) Received from [facility] PRAPARE - Transportation Lack of Transportation (Medical): No Lack of Transportation (Non-Medical): No Intimate Partner Violence: Not At Risk (05/18/2024) Humiliation, Afraid, Rape, and Kick questionnaire Fear of Current or Ex-Partner: No Emotionally Abused: No Physically Abused: No Sexually Abused: No Housing Stability: Unknown (02/17/2025) Received from [facility] Housing Stability Vital Sign Unable to Pay for Housing in the Last Year: No Homeless in the Last Year: No Brad Campos MD 04/22/25 0201 documented in this encounter [facility] 04-28-2025 Progress note Formatting of t his note might be different from the original. Confirmed pickup time of 5:30pm on 04/28/25 by MemberPlanetblanca Obrien at phone number [phone]. Location of facility drop off is [facility]. Facility notified via Careport, TCC notified on secure chat. [facility] 04-28-2025 Hospital Discharge instructions Berhane Moreno MD - 04/28/2025 1:10 PM EDT Up with assist Berhane Moreno MD - 04/28/2025 1:10 PM EDT ADA 1800 diet Joann King RN - 04/26/2025 10:39 AM EDT Images from the original note were not included. Continuity of Care Form Patient Name: Anmol Langley : 1960 Admit date: 04/21/2025 Discharge date: 04/28/2025 Code Status Order: Full Code Advance Directives: N Admitting Physician: Ab Hawkins MD PCP: Walter Alatorre Discharging Nurse: Joann Fryarging Hospital Unit/Room#: N4-455/N4-455 A Discharging Unit Emergency Contact: Extended Emergency Contact Information Primary Emergency Contact: Ronald Langley Mobile Relation: Sibling Secondary Emergency Contact: SUMI LANGLEY Mobile Relation: Daughter Past Surgical History: Past Surgical History: Procedure Laterality Date ANKLE SURGERY Right He has a titanium plate to the right ankle KNEE SURGERY Left ACL KNEE SURGERY Left removal of screw LAMINECTOMY Left 10/24/2020 LEFT BILATERAL L2-3-4-5 DECOMPRESSION performed by Opal Ayala MD at [facility] OR ORTHOPEDIC SURGERY Right removal of hardware ankle OTHER SURGICAL HISTORY 04/24/2025 Sacral wound DEBRIDEMENT SKIN SUBCUTANEOUS TISSUE MUSCLE - Bilateral US PLACE URETAL STENT PERC PRE-EXIST TRACT S&I (HISTORICAL) Bilateral 04/14/2024 Dr. Grimm/Bashir Immunization History: There is no immunization history on file for this patient. Active Problems: Medical Problems Problem List * (Principal) Other acute osteomyelitis, other site (HCC) Hypertension Hyperglycemia Hip sprain Anxiety Septic shock (HCC) Pressure injury of coccygeal region, stage 3 ([facility]) Bladder calculus Calculus of ureter Positive blood [...] assistance Toileting Total assistance Feeding Minimal assistance Investment Strategist Minimal assistance Med Delivery yes Wound Care [...] Date: 04/22/25 [facility] [address] , [place] [address] [place] Publicity Consultant/Armored Vehicle Officer signature: ICIAN SECTION Name: Anmol Langley Prognosis: good Condition at Discharge: stable Rehab Potential (if transferring to Rehab): fair Recommended Labs or Other Treatments After Discharge: CBC, CMP panel weekly till IV antibiotic is completed Discontinue PICC line after IV antibiotic is completed The individual is being admitted to a nursing facility directly from an [facility] or a unit of a [facility] that is not operated by or licensed by [facility] under section 5119.14 or 5160-3-15.1 5 The individual requires the level of services provided by a nursing facility for the condition for which he or she was treated in the hospital and, Physician Certification: I certify the above information and transfer of Anmol Langley is necessary for the continuing treatment of the diagnosis listed and that he requires shelter facility for greater than 30 days. Update Admission H&P: No change in H&P PHYSICIAN SIGNATURE: documented in this encounter [facility] 04-28-2025 Progress note Formatting of t his note might be different from the original. Transport [facility]. [facility] 04-28-2025 Note Care Management Prog ress Note Short Medical why still here: continues to be treated for osteomyelitis. ID following- awaiting sensitivities for final IV plan. Currently receiving IV unasyn and vanc. PICC Line intact for antic 6wk course. Planned Discharge Disposition: plan for return to [facility]- will NOT need auth. BONE WORKER to place pt in roundtrip under will call for transport assist. Barriers/Today we still Wait: need opat/final plan for discharge. Length of Stay (Days): 6 GMLOS: 8.4 [facility] 04-28-2025 Progress note Formatting of t his note might be different from the original. Care Management Progress Note Short Medical why still here: continues to be treated for osteomyelitis. ID following- awaiting sensitivities for final IV plan. Currently receiving IV unasyn and vanc. PICC Line intact for antic 6wk course. Planned Discharge Disposition: plan for return to [facility]- will NOT need auth. BONE WORKER to place pt in roundtrip under will call for transport assist. Barriers/Today we still Wait: need opat/final plan for discharge. Length of Stay (Days): 6 GMLOS: 8.4 [facility] 04-28-2025 Note Hospitalist Progress Note 04/28/2025 10:05 AM [phone]: Please page me for patient care issues. [phone]: Please page [facility] Hospitalist for any issues. Subjective: Admit Date: 04/21/2025 PCP: Walter Alatorre Room#: N4-004/N4-375 A Interval History: Patient seen and examined [...] diet Regular; 4 carb choices (60 gm/meal) @[id number]@ Medications: Continuous Meds[2] Scheduled Meds[3] LABS: CBC: [...] palpable with normal bowel sounds, chronic indwelling Hudson catheter noted. Neurology- Awake alert, answering questions, [...] Peripheral neuropathy DM History of chronic indwelling Hudson catheter Anemia Peripheral neuropathy Gastroesophageal flux disease Plan Continue antibiotics per infectious disease team--Proteus sensitivity pending--final antibiotic recommendation pending Seen by general surgery team, recommendation noted Continue high-dose sliding scale insulin, Lantus 28 units daily Wound care team following. PT recommended shelter facility Continue IV Venofer as ordered for [...] Emergency Contact Information Primary Emergency Contact: Ronald Langley Mobile Relation (more content not included)... [facility] 04-28-2025 History of Present illness Narrative Hospitalist Progress Note 04/28/2025 10:05 AM [phone]: Please page me for patient care issues. [phone]: Please page [facility] night Hospitalist for any issues. Subjective: Admit Date: 04/21/2025 PCP: Walter Alatorre Room#: N4-455/N4-455 A Interval History: Patient seen [...] diet Regular; 4 carb choices (60 gm/meal) @[id number]@ Medications: Continuous Meds[2] Scheduled Meds[3] LABS: CBC: [...] palpable with normal bowel sounds, chronic indwelling Hudson catheter noted. Neurology- Awake alert, answering questions, [...] Peripheral neuropathy DM History of chronic indwelling Hudson catheter Anemia Peripheral neuropathy Gastroesophageal flux disease Plan Continue antibiotics per infectious disease team--Proteus sensitivity pending--final antibiotic recommendation pending Seen by general surgery team, recommendation noted Continue high-dose sliding scale insulin, Lantus 28 units daily Wound care team following. PT recommended shelter facility Continue IV Venofer as ordered for [...] Emergency Contact Information Primary Emergency Contact: Ronald Langley Mobile Relation: Sibling Secondary Emergency Contact: SUMI LANGLEY Mobile Relation: Daughter Advance Directive: Full Code Discharge planning: Anticipated discharge in 1 day NOTE: This report was transcribed using voice recognition software. Every effort was made to ensure accuracy; however, inadvertent computerized auditor errors may be present. Berhane Moreno MD Division of Hospitalist Medicine [employer] [facility] PAGER: Epic chat [1] Past [...] creatinine, and vancomycin levels interfaced automatically to [employer] and data has been analyzed and interpreted. [...] Orders placed. DATE: 04/28/25 TIME: 7:21 AM Blaise Begum PharmD Clinical Pharmacist Available via Secure Chat Hospitalist Progress Note 04/27/2025 9:04 AM [phone]: Please page me for patient care issues. [phone]: Please page [facility] night Hospitalist for any issues. Subjective: Admit Date: 04/21/2025 PCP: Walter Alatorre Room#: [id number]/[id number] A Interval History: Patient seen and examined [...] diet Regular; 4 carb choices (60 gm/meal) @[id number]@ Medications: Continuous Meds[2] Scheduled Meds[3] LABS: CBC: [...] palpable with normal bowel sounds, chronic indwelling Hudson catheter noted. Neurology- Awake alert, answering questions [...] Peripheral neuropathy DM History of chronic indwelling Hudson catheter Anemia Peripheral neuropathy Gastroesophageal flux disease Plan Continue antibiotics per infectious disease team Seen by general surgery team, recommendation noted Continue high-dose sliding scale insulin, increase Lantus dose to 28 units daily Wound care team following. PT recommended shelter facility Continue IV Venofer as ordered for [...] Emergency Contact Information Primary Emergency Contact: Ronald Langley Mobile Relation: Sibling Secondary Emergency Contact: SUMI LANGLEY Mobile Relation: Daughter Advance Directive: Full Code Discharge planning: Anticipated discharge in 2 days NOTE: This report was transcribed using voice recognition software. Every effort was made to ensure accuracy; however, inadvertent computerized auditor errors may be present. Berhane Moreno MD Division of Hospitalist Medicine [facility] PAGER: Epic chat [1] Past Medical History: [...] creatinine, and vancomycin levels interfaced automatically to You[employer] and data has been analyzed and interpreted. [...] Chat Hospitalist Progress Note 04/26/2025 9:58 AM [phone]: Please page me for patient care issues. [phone]: Please page [facility] night Hospitalist for any issues. Subjective: Admit Date: 04/21/2025 PCP: Walter Altaorre Room#: N4-455/N4-455 A Interval History: Patient seen [...] diet Regular; 4 carb choices (60 gm/meal) @[id number]@ Medications: Continuous Meds[2] Scheduled Meds[3] LABS: CBC: Recent Labs 04/24/25 0206 04/25/25 0056 04/26/25 0039 WBC 9.3 9.5 7.3 RBC 3.68* 3.62* 3.76* HGB 10.6* 10.4* 11.0* HCT 32.8* 32.6* 33.8* MCV 89.1 90.1 89.9 RDW 14.9 14.8 14.8 PLT 367 421 386 BMP: Recent Labs 04/24/25 0206 04/25/25 0056 04/26/25 0039 NA 136 134* 136 K [...] palpable with normal bowel sounds, chronic indwelling Hudson catheter noted. Neurology- Awake alert, answering questions [...] Peripheral neuropathy DM History of chronic indwelling Hudson catheter Anemia Peripheral neuropathy Gastroesophageal flux disease Plan Continue antibiotics per infectious disease team Seen by general surgery team, recommendation noted Continue high-dose sliding scale insulin, Lantus to 25 units daily Wound care team following. PT recommended shelter facility IV Venofer for iron deficiency anemia ordered x 2 dose Hold ferrous sulfate Discussed with co founder and president by clyde malone--okay to restart anticoagulation today [...] Emergency Contact Information Primary Emergency Contact: Ronald Langley Mobile Relation: Sibling Secondary Emergency Contact: SUMI LANGLEY Mobile Relation: Daughter Advance Directive: Full Code Discharge planning: Anticipated discharge in 2 to 3 days NOTE: This report was transcribed using voice recognition software. Every effort was made to ensure accuracy; however, inadvertent computerized auditor errors may be present. Berhane Moreno MD Division of Hospitalist Medicine [facility] PAGER: Clyde malone [1] Past Medical History: [...] creatinine, and vancomycin levels interfaced automatically to [employer] and data has been analyzed and interpreted. [...] Chat Hospitalist Progress Note 04/25/2025 5:34 PM [phone]: Please page me for patient care issues. [phone]: Please page [facility] night Hospitalist for any issues. Subjective: Admit Date: 04/21/2025 PCP: Walter Alatorre Room#: N4-465/N4-465 B Interval History: Patient seen [...] diet Regular; 4 carb choices (60 gm/meal) @[id number]@ Medications: Continuous Meds[2] Scheduled Meds[3] LABS: CBC: [...] palpable with normal bowel sounds, chronic indwelling Hudson catheter noted. Neurology- Awake alert, answering questions [...] Peripheral neuropathy DM History of chronic indwelling Hudson catheter Anemia Peripheral neuropathy Gastroesophageal flux disease Plan Continue antibiotics per infectious disease team Seen by general surgery team, recommendation noted Change diet to ADA 1800 diet Continue high-dose sliding scale insulin, increase dose of Lantus to 25 units daily Wound care team following PT recommended shelter facility Check iron profile Patient can be [...] Emergency Contact Information Primary Emergency Contact: Ronald Langley Mobile Relation: Sibling Secondary Emergency Contact: SUMI LANGLEY Mobile Relation: Daughter Advance Directive: Full Code Discharge planning: Anticipated discharge in 2 to 3 days NOTE: This report was transcribed using voice recognition software. Every effort was made to ensure accuracy; however, inadvertent computerized auditor errors may be present. Berhane Moreno MD Division of Hospitalist Medicine [facility] PAGER: Epic chat [1] Past Medical History: [...] Oral, Daily vancomycin, 1,500 mg, IntraVENous, q12h [facility] - Infectious Diseases [...] 04/25/202555 CL 101 04/25/2025 0056 CO2 26 04/25/202555 BUN 14 04/25/202555 CREATININE 0.73 04/25/202555 CREATININE 0.57 (L) 10/25/2020 0457 GLUCOSE 213 (H) 04/25/202555 CALCIUM 8.2 (L) 04/25/202555 PROT 7.6 04/21/2025 2257 BILITOT 0.5 04/21/2025 2257 ALKPHOS 116 04/21/2025 2257 AST 13 04/21/2025 2257 ALT 6 04/21/2025 2257 PROCAL 27.06 (H) 04/14/2024 2318 Lab Results Component Value Date/Time WBC 9.5 04/25/202555 HGB 10.4 (L) 04/25/202555 HGB 13.7 04/14/2024 1730 HCT 32.6 (L) 04/25/202555 PLT 421 04/25/202555 LYMPHOPCT 20.7 04/25/20256 LYMPHOPCT 32 04/20/2024 0359 MONOPCT 9.3 04/25/2025 0056 MONOPCT 10 04/20/2024 0359 BASOPCT 0.4 04/25/2025 0056 BASOPCT 1 04/19/2024 0428 NEUTROABS 6.5 04/25/2025 0056 Micro: 04/24 tissue cx: E raffinosus so far 04/21 Wound cx: MRSA, anaerobic GNR, not B fragilis Lines: PIV Radiography/Echo/Other: reviewed Antimicrobials, Start/End Dates: Vancomycin Cefepime to Meropenem Impression: 64 M admitted from [facility] with: Worsening decubitus ulcer , concerning for wound infection, with imaging c/w acute OM- s/p I+D yesterday- confirmed acute OM to L ischial ulcer.. Agree with broad spectrum coverage, including Meropenem given MDRO pathogens isolated recently. Clinically not septic appearing NGB , chronic hudson requiring H/o MRSA Epidural abscess, despite surery [...] creatinine, and vancomycin levels interfaced automatically to [employer] and data has been analyzed and interpreted. [...] TIME: 9:15 AM Bridgette Virk PharmD PGY1 Spa Supervisor Available via Secure Chat Images from the original note were not included. Department of General Surgery Daily Progress Note ADMIT DATE: 04/21/2025 TODAY'S DATE: 04/25/2025 HPI: Anmol Langley is a 64 y.o. male with significant past medical history of paraplegia s/p surgical complication with Dr. Ashley at [facility], HLD, HTN, MDD, OA, a-fib on eliquis, chronic sacral wounds who presents from his longterm after he states the nurses have become [...] Intake/Output Summary (Last 24 hours) at 04/25/2025 0757 Last data filed at 04/25/2025 0358 Gross [...] Note 04/24/2025 Subjective: Admit Date: 04/21/2025 PCP: Walter Alatorre Room#: N4-465/N4-465 B BRIEF HOSPITAL COURSE: 64-year-old [...] 10 7 8 LIVER PROFILE: Recent Labs 04/21/25 2257 AST [...] Emergency Contact Information Primary Emergency Contact: Ronald Langley Mobile Relation: Sibling Secondary Emergency Contact: GAILSUMI Mobile Relation: Daughter Kerwin Clarke DO Radhames Division of Hospitalist Medicine [employer] care [facility] [1] Past Medical History: Diagnosis Date [...] (BLE Edema: Moderate pitting, indentation subsides rapidly) Associate Broker Strength: Not Performed Chief Complaint Patient presents with Wound Infection Per EMS pt was sent here from the [facility] for wound infections. Pt has two wound [...] present on the unit who is an DIRECTOR MEDICAL SCIENCE at a SNF. Nurse states she ordered [...] (kg): 82.41 kg Total Energy Requirements (kcals/day): 1686-3506 (25-30 kcals/kg) Weight Used for Protein Requirements: [...] Intake/Output Summary (Last 24 hours) at 04/24/2025 161 Last data filed at 04/24/2025 0851 Gross [...] in paraplegia) % Weight Change (Calculated): 0 [place] Body Weight (lbs) (Calculated): 196 lbs [place] Body Weight (Kg) (Calculated): 89 kg % [place] Body Weight (Calculated): 99.5 % BMI (kg/m2) (Calculated): 24.4 Weight Adjustment For: Paraplegia % Weight Adjustment: 7.5 - Paraplegia Total Adjusted Percentage (Calculated): 7.5 Adjusted [place] Body Weight (lbs) (Calculated): 181.3 lbs Adjusted [place] Body Weight (kg) (Calculated): 82.41 kg Adjusted [...] Elly Hou MS, RD, LD Contact: or Shoette (dial *[phone] from hospital phone) [1] Past Medical History: [...] LEFT BILATERAL L2-3-4-5 DECOMPRESSION performed by Opal Ayala MD at [facility] OR ORTHOPEDIC SURGERY Right removal of hardware ankle OTHER SURGICAL HISTORY 04/24/2025 Sacral wound DEBRIDEMENT SKIN SUBCUTANEOUS TISSUE MUSCLE - Bilateral US PLACE URETAL STENT PERC PRE-EXIST TRACT S&I (HISTORICAL) Bilateral 04/14/2024 Dr. Grimm/Bashir [3] [Held by provider] apixaban, 5 mg, [...] creatinine, and vancomycin levels interfaced automatically to You[employer]ew and data has been analyzed and interpreted. [...] JOE Diaz CNP Family Communication Number Called: [phone] Name of Designated Family Boxing Promoter: oRnald Langley Relationship: brother Phone Call Outcome: I spoke with the individual listed above. Family Boxing Promoter Updated on the Following: I updated Ronald on Anmol's surgery. He will rely the message to Ronald's daughter Sumi (phone number provided not functional). Images from the original note were not included. Department of General Surgery Daily Progress Note ADMIT DATE: 04/21/2025 TODAY'S DATE: 04/24/2025 HPI: Anmol Langley is a 64 y.o. male with significant past medical history of paraplegia s/p surgical complication with Dr. Ashley at [facility], HLD, HTN, MDD, OA, a-fib on eliquis, chronic sacral wounds who presents from his longterm after he states the nurses have become [...] OR - remainder of care per primary Fei iNelson MD General Surgery Resident PGY-1 04/24/25 7:19 [...] results, and face to face with Anmol Langley discussing the diagnosis and importance of compliance [...] Note 04/23/2025 Subjective: Admit Date: 04/21/2025 PCP: Walter Alatorre Room#: N4-465/N4-465 B BRIEF HOSPITAL COURSE: 64-year-old [...] Emergency Contact Information Primary Emergency Contact: Ronald Langley Mobile Relation: Sibling Secondary Emergency Contact: SUMI LANGLEY Mobile Relation: Daughter Kerwin Beckforde, DO Division of Hospitalist Medicine Acute care [facility] [1] Past Medical History: Diagnosis Date [...] original note were not included. PHYSICAL THERAPY [facility] Initial Evaluation Name/MRN: Anmol Langley ([id number]) Evaluation Date: 04/23/2025 Date of : 1960 Admission Date: 04/21/2025 9:56 PM Age: 64 y.o. Room/Bed: N4-465/N4-465 B Discharge Recommendation: Residential Facility Equipment Needed: No Assessment IMPRESSION: PT eval completed and the pt is at his functional baseline for transfers, ambulation, balance, and bed mobility. No skilled therapy needs at this time. Recommended return to [facility] level therapy upon disch and PT is [...] Anxiety 01/06/2017 Other acute osteomyelitis, other site ([facility]) 04/22/2025 Positive blood cultures 05/17/2024 Calculus of ureter 05/06/2024 Bladder calculus 05/05/2024 Pressure injury of coccygeal region, stage 3 ([facility]) 04/20/2024 Septic shock ([facility]) 04/14/2024 Lumbar stenosis with neurogenic claudication 10/24/2020 Spinal stenosis of lumbar region with neurogenic claudication 10/24/2020 Nicotine use disorder 10/15/2020 Unspecified osteoarthritis, unspecified site 10/15/2020 Pilonidal cyst without abscess 10/15/2020 Diabetes mellitus without complication ([facility]) 10/15/2020 Abnormal finding on EKG 10/15/2020 Other [...] x4 Social/Functional History Patient admitted from [facility] . Assistive Equipment: wheelchair - manual [...] of Care supervision is transferred to a [facility] Physical Therapist. Goals and/or treatment [...] LEFT BILATERAL L2-3-4-5 DECOMPRESSION performed by Opal Ayala MD at [facility] OR ORTHOPEDIC SURGERY Right removal of hardware ankle US PLACE URETAL STENT PERC PRE-EXIST TRACT S&I (HISTORICAL) Bilateral 04/14/2024 Dr. Grimm/Bashir Pharmacy to Dose Vancomycin - Progress Note Lab Results Component Value Date CREATININE 0.54 (L) 04/23/2025 BUN 8 (L) 04/23/2025 WBC 9.4 04/23/2025 VANCORANDOM 12.3 (L) 04/16/2024 VANCOTROUGH 12.4 04/22/2025 Doses, serum creatinine, and vancomycin levels interfaced automatically to [employer] and data has been analyzed and interpreted. [...] Note 04/22/2025 Subjective: Admit Date: 04/21/2025 PCP: Walter Alatorre Room#: N4-465/N4-465 B BRIEF HOSPITAL COURSE: 64-year-old [...] Emergency Contact Information Primary Emergency Contact: Ronald Langley Mobile Relation: Sibling Secondary Emergency Contact: SUMI LANGLEY Mobile Relation: Daughter Kerwin RicciDO Division of Hospitalist Medicine [employer] [facility] [1] Past Medical History: Diagnosis Date Abnormal [...] creatinine, and vancomycin levels interfaced automatically to You[employer]ew and data has been analyzed and interpreted. [...] via Secure Chat documented in this encounter [facility] 04-28-2025 Note Pharmacy to Dose Van comycin - Progress Note Lab Results Component Value Date CREATININE 0.64 (L) 04/27/2025 BUN 21 04/27/2025 WBC 8.0 04/27/2025 VANCORANDOM 12.3 (L) 04/16/2024 VANCOTROUGH 12.0 04/24/2025 Doses, serum creatinine, and vancomycin levels interfaced automatically to [employer]ew and data has been analyzed and interpreted. [...] Orders placed. DATE: 04/28/25 TIME: 7:21 AM Blaise Begum PharmD Clinical Pharmacist Available via Secure Chat [facility] 04-27-2025 Plan of care note Assuming coverage from Dr. Alvarez- s/p Mina ischial wound debridement with osteomyelitis. Additional organisms are being reported on OR cx. E raffinosus, Proteus, MRSA, Clostridium ramosum, enteric gosia, and skin gosia. Await Proteus sensitivities prior to completion of OPAT. Will provide final recommendations tomorrow. D/w TCC. Jo-Ann Ortiz MD [facility] 04-27-2025 Note Care Management Prog ress Note Short Medical why still here: pt being treated for osteomyelitis. Receiving IV unaysn and vanc with ID planning on extended IV course- awaiting opat/final plan. Planned Discharge Disposition: Plan for return to [facility]- does not need auth. Barriers/Today we still Wait: ID plan/opat. Length of Stay (Days): 5 GMLOS: 8.4 [facility] 04-27-2025 Progress note Formatting of t [...] Length of Stay (Days): 5 GMLOS: 8.4 [facility] 04-27-2025 Nurse Note Patient dressings changed as per orders. Patient tolerated well. Left PICC dressing changed patient tolerated well [facility] 04-27-2025 Note Hospitalist Progress Note 04/27/2025 9:04 AM [phone]: Please page me for patient care issues. [phone]: Please page IMS night Hospitalist for any issues. Subjective: Admit Date: 04/21/2025 PCP: Walter Alatorre Room#: N4-455/N4-455 A Interval History: Patient seen [...] diet Regular; 4 carb choices (60 gm/meal) @[id number]@ Medications: Continuous Meds[2] Scheduled Meds[3] LABS: CBC: [...] palpable with normal bowel sounds, chronic indwelling Hudson catheter noted. Neurology- Awake alert, answering questions [...] Peripheral neuropathy DM History of chronic indwelling Hudson catheter Anemia Peripheral neuropathy Gastroesophageal flux disease Plan Continue antibiotics per infectious disease team Seen by general surgery team, recommendation noted Continue high-dose sliding scale insulin, increase Lantus dose to 28 units daily Wound care team following. PT recommended shelter facility Continue IV Venofer as ordered for [...] Primary Emergency Con (more content not included)... [facility] 04-27-2025 Note Pharmacy to Dose Van comycin - Progress Note Lab Results Component Value Date CREATININE 0.64 (L) 04/27/2025 BUN 04/27/2025 WBC 8.0 04/27/2025 VANCORANDOM 12.3 (L) 04/16/2024 VANCOTROUGH 12.0 04/24/2025 Doses, serum creatinine, and vancomycin levels interfaced automatically to [employer] and data has been analyzed and interpreted. [...] PharmD Clinical Pharmacist Available via Secure Chat [facility] 04-26-2025 Note Care Management Prog ress Note Short Medical why still here: Pt continues to be treated for osteomyelitis. Receiving IV merrem q8hr with plan for 6wk tx per ID-final plan not complete. Planned Discharge Disposition: plan for return to [facility]- will need auth d/t skilled need for IV atb tx. Facility updated and asked to submit for auth. ADELINE complete. Barriers/Today we still Wait: Plan from ID/line placement and auth. Length of Stay (Days): 4 GMLOS: 8.4 [facility] 04-26-2025 Progress note Formatting of t his note might be different from the original. Care Management Progress Note Short Medical why still here: Pt continues to be treated for osteomyelitis. Receiving IV merrem q8hr with plan for 6wk tx per ID-final plan not complete. Planned Discharge Disposition: plan for return to [facility]- will need auth d/t skilled need for IV atb tx. Facility updated and asked to submit for auth. ADELINE complete. Barriers/Today we still Wait: Plan from ID/line placement and auth. Length of Stay (Days): 4 GMLOS: 8.4 [facility] 04-26-2025 Note Hospitalist Progress Note 04/26/2025 9:58 AM [phone]: Please page me for patient care issues. [phone]: Please page IMS night Hospitalist for any issues. Subjective: Admit Date: 04/21/2025 PCP: Walter Alatorre Room#: N4-455/N4-455 A Interval History: Patient seen [...] diet Regular; 4 carb choices (60 gm/meal) @[id number]@ Medications: Continuous Meds[2] Scheduled Meds[3] LABS: CBC: Recent Labs 04/24/25 0206 04/25/25 0056 04/26/25 0039 WBC 9.3 9.5 7.3 RBC 3.68* 3.62* 3.76* HGB 10.6* 10.4* 11.0* HCT 32.8* 32.6* 33.8* MCV 89.1 90.1 89.9 RDW 14.9 14.8 14.8 PLT 367 421 386 BMP: Recent Labs 04/24/25 0206 04/25/25 0056 04/26/25 0039 NA 136 134* 136 K [...] palpable with normal bowel sounds, chronic indwelling Hudson catheter noted. Neurology- Awake alert, answering questions [...] Peripheral neuropathy DM History of chronic indwelling Hudson catheter Anemia Peripheral neuropathy Gastroesophageal flux disease Plan Continue antibiotics per infectious disease team Seen by general surgery team, recommendation noted Continue high-dose sliding scale insulin, Lantus to 25 units daily Wound care team following. PT recommended shelter facility IV Venofer for iron deficiency anemia ordered x 2 dose Hold ferrous sulfate Discussed with co founder and president by epic chat--okay to restart anticoagulation today [...] monitoring : Accu-C (more content not included)... [facility] 04-26-2025 Note Pharmacy to Dose Van comycin - Progress Note Lab Results Component Value Date CREATININE 0.62 (L) 04/26/2025 BUN 19 04/26/2025 WBC 7.3 04/26/2025 VANCORANDOM 12.3 (L) 04/16/2024 VANCOTROUGH 12.0 04/24/2025 Doses, serum creatinine, and vancomycin levels interfaced automatically to [employer] and data has been analyzed and interpreted. [...] DATE: 04/26/25 TIME: 8:55 AM Brunilda Gomez, JudyD Clinical Pharmacist Available via Secure Chat [facility] 04-25-2025 Note Hospitalist Progress Note 04/25/2025 5:34 PM [phone]: Please page me for patient care issues. [phone]: Please page IMS night Hospitalist for any issues. Subjective: Admit Date: 04/21/2025 PCP: Walter Alatorre Room#: N4-465/N4-465 B Interval History: Patient seen [...] diet Regular; 4 carb choices (60 gm/meal) @[id number]@ Medications: Continuous Meds[2] Scheduled Meds[3] LABS: CBC: [...] palpable with normal bowel sounds, chronic indwelling Hudson catheter noted. Neurology- Awake alert, answering questions [...] Peripheral neuropathy DM History of chronic indwelling Hudson catheter Anemia Peripheral neuropathy Gastroesophageal flux disease Plan Continue antibiotics per infectious disease team Seen by general surgery team, recommendation noted Change diet to ADA 1800 diet Continue high-dose sliding scale insulin, increase dose of Lantus to 25 units daily Wound care team following PT recommended shelter facility Check iron profile Patient can be [...] Emergency Contact Information Primary Emergency Contact: Ronald Langley Mobile Relation: Sibling Secondary Emergency Contact: SUMI LANGLEY Mobile Relation: Daughter Advance D (more content not included)... [facility] 04-25-2025 Note Care Management Prog ress Note Short Medical why still here: Pt continues to be treated for osteomyelitis. ID following- receiving IV merrem and vanc- anticipate assisted tx. Planned Discharge Disposition: Pt from [facility]- met with pt this afternoon- introduced self and role. Verified return when stable. Will need auth if pt has skilled needs (IV atb greater than once a day will qualify). Barriers/Today we still Wait: ID plan/line placement/opat. Length of Stay (Days): 3 GMLOS: 8.4 [facility] 04-25-2025 Progress note Formatting of t his note might be different from the original. Care Management Progress Note Short Medical why still here: Pt continues to be treated for osteomyelitis. ID following- receiving IV merrem and vanc- anticipate assisted tx. Planned Discharge Disposition: Pt from [facility]- met with pt this afternoon- introduced self and role. Verified return when stable. Will need auth if pt has skilled needs (IV atb greater than once a day will qualify). Barriers/Today we still Wait: ID plan/line placement/opat. Length of Stay (Days): 3 GMLOS: 8.4 [facility] 04-25-2025 Note [facility] - Infectious Diseases [...] 8.2 (L) 04/25/2025 0056 PROT 7.6 04/21/2025 225 BILITOT 0.5 04/21/20252256 ALKPHOS 116 04/21/2025 225 AST 13 04/21/2025 2257 ALT 6 04/21/2025 2257 PROCAL 27.06 (H) 04/14/2024 2318 Lab Results Component Value Date/Time WBC 9.5 04/25/2025 0056 HGB 10.4 (L) 04/25/2025 0056 HGB 13.7 04/14/2024 1730 HCT 32.6 (L) 04/25/2025 005 PLT 421 04/25/2025 0056 LYMPHOPCT 20.7 04/25/2025 0056 LYMPHOPCT 32 04/20/2024 0359 MONOPCT 9.3 04/25/2025 005 MONOPCT 10 04/20/2024 0359 BASOPCT 0.4 04/25/2025 005 BASOPCT 1 04/19/2024 0428 NEUTROABS 6.5 04/25/202555 Micro: 04/24 tissue cx: E raffinosus so far 04/21 Wound cx: MRSA, anaerobic GNR, not B fragilis Lines: PIV Radiography/Echo/Other: reviewed Antimicrobials, Start/End Dates: Vancomycin Cefepime to Meropenem Impression: 64 M admitted from [facility] with: Worsening decubitus ulcer , concerning for wound infection, with imaging c/w acute OM- s/p I+D yesterday- confirmed acute OM to L ischial ulcer.. Agree with broad spectrum coverage, including Meropenem given MDRO pathogens isolated recently. Clinically not septic appearing NGB , chronic hudson requiring H/o MRSA Epidural abscess, despite surery form 2021, now with paraplegia Tobacco use Not septic-appearing at this time, HD stable. Plan: Same regimen and de-escalate as necessary. Prolonged course up to 6 weeks at least. Needs PICC. Continue local wound care and offloading to optimize wound healing. Will follow. Case d/wCM. [facility] 04-25-2025 Note Pharmacy to Dose Van comycin - Progress Note Lab Results Component Value Date CREATININE 0.73 04/25/2025 BUN 14 04/25/2025 WBC 9.5 04/25/2025 VANCORANDOM 12.3 (L) 04/16/2024 VANCOTROUGH 12.0 04/24/2025 Doses, serum creatinine, and vancomycin levels interfaced automatically to [employer] and data has been analyzed and interpreted. [...] DATE: 04/25/25 TIME: 9:15 AM Bridgette Virk, PharmD PGY1 Spa Supervisor Available via Secure [facility] 04-25-[facility] Note Department of [facility] l Surgery Daily Progress Note ADMIT DATE: 04/21/2025 TODAY'S DATE: 04/25/2025 HPI: Anmol Langely is a 64 y.o. male with significant past medical history of paraplegia s/p surgical complication with Dr. Ashley at [facility], HLD, HTN, MDD, OA, a-fib on eliquis, chronic sacral wounds who presents from his longterm after he states the nurses have become [...] Intake/Output Summary (Last 24 hours) at 04/25/2025 075 Last data filed at 04/25/2025 0358 Gross [...] questions or concerns Maureen Garduno, JOE - BEADER TENDER 04/25/25 7:58 AM [1] [Held by provider] [...] polyethylene glycol (PEG) 3350, sodium chloride 0.9% [facility] 04-24-2025 Note Hospitalist Progress Note 04/24/2025 Subjective: Admit Date: 04/21/2025 PCP: Walter Alatorre Room#: N4-465/N4-465 B BRIEF HOSPITAL COURSE: 64-year-old [...] Intake/Output Summary (Last 24 hours) at 04/24/2025 5538 Last data filed at 04/24/2025 2100 Gross [...] precautions: increase ac (more content not included)... [facility] 04-24-2025 Note Patient declined smo rl cessation counseling. Accepting of handout with contact information for future reference. [facility] 04-24-2025 Progress note Formatting of t his note might be different from the original. VIVIAN consult-[facility] transportation. VIVIAN reviewed chart. Pt is a LTC resident of [facility]. [place] is responsible for pt transportation for medical appointments. . [facility] 04-24-2025 Note Return Referral plac ed to [facility] via [facility] per TCC request. Await review and response regarding ability to accept. TCC notified. [facility] 04-24-2025 Progress note Formatting of t his note might be different from the original. Return Referral placed to [facility] via [facility] per TCC request. Await review and response regarding ability to accept. TCC notified. [facility] 04-24-2025 Note Care Management Prog ress Note Short Medical why still here: Pt adm for tx/evaluation of osteomyelitis. OR this am with surgery for debridement of sacral and ischial wounds. 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 Planned Discharge Disposition: Pt from [facility] assisted. Attempted to confirm return with pt however pt sleeping this am- unable to arouse for conversation. Barriers/Today we still Wait: IV atb/ID plan. Length of Stay (Days): 2 GMLOS: 4 [facility] 04-24-2025 Progress note Formatting of t his note might be different from the original. Care Management Progress Note Short Medical why still here: Pt adm for tx/evaluation of osteomyelitis. OR this am with surgery for debridement of sacral and ischial wounds. Receiving IV merrem and vanc with ID following- anticipate assisted needs. Planned Discharge Disposition: Pt from [facility]. Attempted to confirm return with pt however pt sleeping this am- unable to arouse for conversation. Barriers/Today we still Wait: IV atb/ID plan. Length of Stay (Days): 2 GMLOS: 4 [facility] 04-24-2025 Note Pharmacy to Dose Van comycin - Progress Note Lab Results Component Value Date CREATININE 0.59 (L) 04/24/2025 BUN 7 (L) 04/24/2025 WBC 9.3 04/24/2025 VANCORANDOM 12.3 (L) 04/16/2024 VANCOTROUGH 12.0 04/24/2025 Doses, serum creatinine, and vancomycin levels interfaced automatically to [employer] and data has been analyzed and interpreted. [...] PharmD Clinical Pharmacist Available via Secure Chat [facility] 04-24-2025 Note Patient: Anmol Franco Giraven en Procedure Summary Date: 04/24/25 Room / Location: [address] Operating Room Anesthesia Start: 729 Anesthesia Stop: 844 Procedure: Sacral wound DEBRIDEMENT SKIN SUBCUTANEOUS TISSUE MUSCLE (Bilateral) Diagnosis: Other acute osteomyelitis, other site (HCC) Pressure injury of coccygeal region, stage 3 (HCC) Surgeons: Kaela Durand MD Responsible Provider: Fei Miller MD Anesthesia Type: general ASA Status: [...] once all PACU criteria has been met. [facility] 04-24-2025 Note Patient: Anmol Franco Giraven en Procedure Summary Date: 04/24/25 Room / Location: [address] Operating Room Anesthesia Start: 729 Anesthesia Stop: 844 Procedure: Sacral wound DEBRIDEMENT SKIN SUBCUTANEOUS TISSUE MUSCLE (Bilateral) Diagnosis: Other acute osteomyelitis, other site (HCC) Pressure injury of coccygeal region, stage 3 (HCC) Surgeons: Kaela Durand MD Responsible Provider: Fei Miller MD Anesthesia Type: general ASA Status: [...] opportunity for questions and acknowledgement of understanding. [facility] 04-24-2025 Nurse Note Patient states nobody here to update [facility] 04-24-2025 Note Family Communication Number Called: [phone] Name of Designated Family Boxing Promoter: Ronald Given Relationship: brother Phone Call Outcome: I spoke with the individual listed above. Family Boxing Promoter Updated on the Following: I updated Ronald on Anmol's surgery. He will rely the message to Ronald's daughter Sumi (phone number provided not functional). [facility] 04-24-2025 Note Airway Date/Time: 04/24/2025 7:37 AM Reason: scheduled Airway not difficult General Information and Staff Patient location during procedure: Procedural Resident/DEPUTY SHERIFF BAILIFF: Quinten Salgado APRN - DEPUTY SHERIFF BAILIFF Performed: DEPUTY SHERIFF BAILIFF Patient Condition Indications for airway management: anesthesia [...] 23 Number of attempts at approach: 1 [facility] 04-24-2025 Note Patient: Anmol Santiago en Procedure Information Date/Time: 04/24/25729 Procedure: Sacral wound DEBRIDEMENT SKIN SUBCUTANEOUS TISSUE MUSCLE (Bilateral) Location: [address] Operating Room Surgeons: Kaela Durand MD Relevant Problems Cardio (+) Hypertension Neuro/Psych (+) Anxiety Other (+) Other acute osteomyelitis, other site ([facility]) (+) Unspecified osteoarthritis, unspecified site Past Medical [...] date: Type 2 diabetes mellitus without complication ([facility]/HCC) ([facility]) No date: Urinary calculus, unspecified No date: UTI (urinary tract infection) Past Surgical History: Past Surgical History: No date: ANKLE SURGERY; Right Comment: He has a titanium plate to the right ankle No date: KNEE SURGERY; Left Comment: ACL No date: KNEE SURGERY; Left Comment: removal of screw 10/24/2020: LAMINECTOMY; Left Comment: LEFT BILATERAL L2-3-4-5 DECOMPRESSION performed by Opal Ayala MD at [facility] OR No date: ORTHOPEDIC SURGERY; Right Comment: removal of hardware ankle 04/14/2024: US PLACE URETAL STENT PERC PRE-EXIST TRACT S&I (HISTORICAL); Bilateral Comment: Dr. Grimm/Bashir Social History: TOBACCO: reports that he has [...] Requests [1] No family history on file. [facility] 04-24-2025 Procedure note OPERATIVE REPORT Date of Service: 04/24/2025 SURGEON: Kaela Durand MD PARTICIPATING SURGEON: Cari Ling MD and Fei Alcantara MD (Resident) PREOPERATIVE DIAGNOSIS: 1. Left [...] achieved with bovie electrocautery. Two pieces of [place] patch were placed in the wound bed. [...] x 4 cm = 28 cm2 [CPT 37570, 14581] Open biopsy of left ischium [CPT 18021] This note is electronically signed by: Kaela Durand MD 1:56 PM, 04/25/2025. [facility] 04-24-2025 Plan of care note [...] monitored and maintained or improved Outcome: Progressing [facility] 04-23-2025 Note Hospitalist Progress Note 04/23/2025 Subjective: Admit Date: 04/21/2025 PCP: Walter Alatorre Room#: N4-465/N4-465 B BRIEF HOSPITAL COURSE: 64-year-old [...] precautions: increase act (more content not included)... [facility] 04-23-2025 Plan of care note Problem: Pain - Adult Goal: Verbalizes/displays adequate comfort level or baseline comfort level Outcome: Progressing Problem: Safety - Adult Goal: Free from fall injury Outcome: Progressing Problem: Chronic Conditions and Co-morbidities Goal: Patient's chronic conditions and co-morbidity symptoms are monitored and maintained or improved Outcome: Progressing T [facility] 04-23-2025 Note PHYSICAL THERAPY [facility] Initial Evaluation Name/MRN: Anmol Langley ([id number]) Evaluation Date: 04/23/2025 Date of : 1960 Admission Date: 04/21/2025 9:56 PM Age: 64 y.o. Room/Bed: N4-465/N4465 B Discharge Recommendation: Residential Facility Equipment Needed: No Assessment IMPRESSION: PT eval completed and the pt is at his functional baseline for transfers, ambulation, balance, and bed mobility. No skilled therapy needs at this time. Recommended return to [facility] level therapy upon disch and PT is [...] Anxiety 01/06/2017 Other acute osteomyelitis, other site ([facility]) 04/22/2025 Positive blood cultures 05/17/2024 Calculus of ureter 05/06/2024 Bladder calculus 05/05/2024 Pressure injury of coccygeal region, stage 3 ([facility]) 04/20/2024 Septic shock ([facility]) 04/14/2024 Lumbar stenosis with neurogenic claudication 10/24/2020 Spinal stenosis of lumbar region with neurogenic claudication 10/24/2020 Nicotine use disorder 10/15/2020 Unspecified osteoarthritis, unspecified site 10/15/2020 Pilonidal cyst without abscess 10/15/2020 Diabetes mellitus without complication (HCC) 10/15/2020 Abnormal finding on EKG 10/15/2020 [...] x4 Social/Functional History Patient admitted from [facility] . Assistive Equipment: wheelchair - manual [...] Therapy Time Individual Co-Treatment Co-Evaluation Time In 08 Time Out 0822 Minutes 10 Abigail Collins PT Patient's Physical Therapy Plan of Care supervision is transferred to a [facility] Physical Therapist. Goals and/or treatment plan was established in collaboration with patient/family/other representatives. [1] Past Medical History: Diagnosis Date Abnormal posture Abscess, perineum Anemia BPH (benign prostatic hyperplasia) Chronic back pain Hem (more content not included)... [facility] 04-23-2025 Note Pharmacy to Dose Van comycin - Progress Note Lab Results Component Value Date CREATININE 0.54 (L) 04/23/2025 BUN 8 (L) 04/23/2025 WBC 9.4 04/23/2025 VANCORANDOM 12.3 (L) 04/16/2024 VANCOTROUGH 12.4 04/22/2025 Doses, serum creatinine, and vancomycin levels interfaced automatically to [employer] and data has been analyzed and interpreted. [...] DATE: 04/23/25 TIME: 8:13 AM Radha Deal [facility] Clinical Pharmacist Available via Secure Chat [facility] 04-23-2025 Plan of care note Problem: [...] monitored and maintained or improved Outcome: Progressing [facility] 04-22-2025 Consult note Associated Order (s): IP CONSULT TO INFECTIOUS DISEASES Images from the original note were not included. [facility] - Infectious Diseases [...] as ESBL Proteus UTI/ sepsis recently at [facility]. He had a sacral decubitus ulcer for years, was already improving but worsened since most recent prolonged hospitalization once more in February 2025. Buttock ulcer developed that time as well. Patient stabilized, completed IV antibiotics, and was doing well except at [facility] increased concern for worsening wound infection, Patient [...] Resource Strain: Low Risk (04/24/2023) Received from [facility] Overall Financial Resource Strain (CARDIA) Difficulty [...] Respiratory: Negative. Genitourinary: Positive for difficulty urinating (hudson in place, stents removed last month by [...] tenderness. Genitourinary: Penis: Normal. Testes: Normal. Comments: Hudson with clear UOP Musculoskeletal: General: Signs of [...] to Meropenem Impression: 64 M admitted from [facility] with: Worsening decubitus ulcer , concerning for wound infection, with imaging c/w acute OM- Surgery already consulted, with plans for I+D. Agree with broad spectrum coverage, including Meropenem given MDRO pathogens isolated recently. Clinically not septic appearing NGB , chronic hudson requiring H/o mRSA Epidural abscess, despite surery [...] LEFT BILATERAL L2-3-4-5 DECOMPRESSION performed by Opal Ayala MD at [facility] OR ORTHOPEDIC SURGERY Right removal of hardware ankle US PLACE URETAL STENT PERC PRE-EXIST TRACT S&I (HISTORICAL) Bilateral 04/14/2024 Dr. Grimm/Bashir [3] Current Facility-Administered Medications Medication Dose Route Frequency Provider Last Rate Last Admin acetaminophen (Tylenol) tablet 650 mg 650 mg Oral q6h PRN Alberto Boogie NP Or acetaminophen (Tylenol) suppository 650 mg 650 mg Rectal q6h PRN Ross G [place], STUDENT SERVICES REP [Held by provider] apixaban (Eliquis) tablet 5 mg 5 mg Oral BID Alberto Boogie, STUDENT SERVICES REP bisacodyl (Dulcolax) EC tablet 5 mg 5 mg Oral Daily PRN Alberto Boogie, STUDENT SERVICES REP bisacodyl (Dulcolax) suppository 10 mg 10 mg Rectal Daily PRN Alberto Boogie, STUDENT SERVICES REP calcium carbonate (Tums) chewable tablet 1,000 mg 1,000 mg Oral q8h PRN Alberto Boogie, STUDENT SERVICES REP [START ON 04/23/2025] chlorhexidine (Hibiclens) 4 % solution Topical Daily Alberto Boogie, STUDENT SERVICES REP cyclobenzaprine (Flexeril) tablet 10 mg 10 mg Oral TID PRN Alberto Boogie, STUDENT SERVICES REP 10 mg at 04/22/25 0624 dextrose 5 % infusion 100 mL/hr IntraVENous PRN Alberto Boogie, STUDENT SERVICES REP dextrose 50 % solution 12.5 g 12.5 g IntraVENous PRN Alberto Boogie, STUDENT SERVICES REP DULoxetine (Cymbalta) DR capsule 30 mg 30 mg Oral Daily Alberto Boogie, STUDENT SERVICES REP 30 mg at 04/22/25 0923 ferrous sulfate tablet 325 mg 325 mg Oral Daily with breakfast Alberto Boogie, STUDENT SERVICES REP 325 mg at 04/22/25 0921 glucagon (human recombinant) injection 1 mg 1 mg IntraMUSCular PRN Alberto Boogie, STUDENT SERVICES REP glucose oral gel 15 g 15 g Oral PRN Alberto Boogie, STUDENT SERVICES REP insulin glargine (Lantus) injection 45 Units 45 Units SubCUTAneous q AM Alberto Boogie, STUDENT SERVICES REP 45 Units at 04/22/25 0921 Insulin Lispro (Humalog) injection 0-18 Units 0-18 Units SubCUTAneous TID WC Alberto Boogie, STUDENT SERVICES REP 9 Units at 04/22/25 0921 And Insulin Lispro (Humalog) injection 0-18 Units 0-18 Units SubCUTAneous Nightly Alberto Boogie, STUDENT SERVICES REP [START ON 04/24/2025] lactated Ringer's infusion 100 mL/hr IntraVENous Continuous Cari Ling MD linaGLIPtin (Tradjenta) tablet 5 mg 5 mg Oral Daily Alberto Boogie, STUDENT SERVICES REP 5 mg at 04/22/25 0946 meropenem (Merrem) 2,000 mg in sodium chloride 0.9 % 100 mL IVPB 2,000 mg IntraVENous q8h Kerwin Ricci DO midodrine (Proamatine) tablet 10 mg 10 mg Oral TID Alberto Boogie, STUDENT SERVICES REP 10 mg at 04/22/25 0921 mirtazapine (Remeron) tablet 7.5 mg 7.5 mg Oral Nightly Alberto Boogie, STUDENT SERVICES REP naloxone (Narcan) nasal spray 4 mg 4 mg Nasal PRN Alberto Miltons, STUDENT SERVICES REP ondansetron ODT (Zofran-ODT) disintegrating tablet 4 mg 4 mg Oral q8h PRN Alberto Miltons, STUDENT SERVICES REP Or ondansetron (Zofran) injection 4 mg 4 mg IntraVENous q6h PRN Alberto Miltons, STUDENT SERVICES REP oxyCODONE (Roxicodone) immediate release tablet 15 mg 15 mg Oral 4x daily Alberto Miltons, STUDENT SERVICES REP 15 mg at 04/22/25 0921 polyethylene glycol (PEG) 3350 (Miralax) packet 17 g 17 g Oral BID Alberto Miltons, STUDENT SERVICES REP 17 g at 04/22/25 0921 polyethylene glycol (PEG) 3350 (Miralax) packet 17 g 17 g Oral Daily PRN Alberto Miltons, STUDENT SERVICES REP pregabalin (Lyrica) capsule 200 mg 200 mg Oral TID Alberto Boogie, STUDENT SERVICES REP 200 mg at 04/22/25 0920 senna-docusate sodium (Senokot-S) 8.6-50 MG tablet 2 tablet 2 tablet Oral BID Alberto Miltons, STUDENT SERVICES REP 2 tablet at 04/22/25 0921 sodium chloride 0.9% (NS) flush 10 mL 10 mL IntraCATHeter q12h Alberto Sanchez [place], STUDENT SERVICES REP 10 mL at 04/22/25 0634 sodium chloride 0.9% (NS) flush 10 mL 10 mL IntraCATHeter PRN Alberto Miltons, STUDENT SERVICES REP tamsulosin (Flomax) 24 hr capsule 0.4 mg 0.4 mg Oral Daily Alberto Miltons, STUDENT SERVICES REP 0.4 mg at 04/22/25 0922 vancomycin IVPB 1500 mg in 250 mL NS (premix) 1,500 mg IntraVENous q12h Alberto Miltons, STUDENT SERVICES REP [4] No Known Allergies [5] No family history on file. [facility] 04-22-2025 Consult note Associated Order (s): IP CONSULT TO INFECTIOUS DISEASES Images from the original note were not included. [facility] - Infectious Diseases [...] as ESBL Proteus UTI/ sepsis recently at [facility]. He had a sacral decubitus ulcer [...] Resource Strain: Low Risk (04/24/2023) Received from [facility] Overall Financial Resource Strain (CARDIA) Difficulty [...] Respiratory: Negative. Genitourinary: Positive for difficulty urinating (hudson in place, stents removed last month by [...] tenderness. Genitourinary: Penis: Normal. Testes: Normal. Comments: Hduson with clear UOP Musculoskeletal: General: Signs of [...] to Meropenem Impression: 64 M admitted from [facility] with: Worsening decubitus ulcer , concerning for wound infection, with imaging c/w acute OM- Surgery already consulted, with plans for I+D. Agree with broad spectrum coverage, including Meropenem given MDRO pathogens isolated recently. Clinically not septic appearing NGB , chronic hudson requiring H/o mRSA Epidural abscess, despite surery [...] LEFT BILATERAL L2-3-4-5 DECOMPRESSION performed by Opal Ayala MD at [facility] OR ORTHOPEDIC SURGERY Right removal of hardware ankle US PLACE URETAL STENT PERC PRE-EXIST TRACT S&I (HISTORICAL) Bilateral 04/14/2024 Dr. Grimm/Bashir [3] Current Facility-Administered Medications Medication Dose Route [...] 10 mg Rectal Daily PRN Alberto Boogie, STUDENT SERVICES REP calcium carbonate (Tums) chewable tablet 1,000 mg 1,000 mg Oral q8h PRN Alberto Boogie, STUDENT SERVICES REP [START ON 04/23/2025] chlorhexidine (Hibiclens) 4 % solution Topical Daily Alberto Boogie, STUDENT SERVICES REP cyclobenzaprine (Flexeril) tablet 10 mg 10 mg Oral TID PRN Alberto Boogie, STUDENT SERVICES REP 10 mg at 04/22/25 0624 dextrose 5 % infusion 100 mL/hr IntraVENous PRN Alberto Boogie, STUDENT SERVICES REP dextrose 50 % solution 12.5 g 12.5 g IntraVENous PRN Alberto Boogie, STUDENT SERVICES REP DULoxetine (Cymbalta) DR capsule 30 mg 30 mg Oral Daily Alberto Boogie, STUDENT SERVICES REP 30 mg at 04/22/25 0923 ferrous sulfate tablet 325 mg 325 mg Oral Daily with breakfast Alberto Boogie, STUDENT SERVICES REP 325 mg at 04/22/25 09 glucagon (human recombinant) injection 1 mg 1 mg IntraMUSCular PRN Alberto Boogie, STUDENT SERVICES REP glucose oral gel 15 g 15 g Oral PRN Alberto Boogie, STUDENT SERVICES REP insulin glargine (Lantus) injection 45 Units 45 Units SubCUTAneous q AM Alberto Boogie STUDENT SERVICES REP 45 Units at 04/22/25920 Insulin Lispro (Humalog) injection 0-18 Units 0-18 Units SubCUTAneous TID WC Alberto Boogie, STUDENT SERVICES REP 9 Units at 04/22/25 0921 And Insulin Lispro (Humalog) injection 0-18 Units 0-18 Units SubCUTAneous Nightly Ablerto Boogie, STUDENT SERVICES REP [START ON 04/24/2025] lactated Ringer's infusion 100 mL/hr IntraVENous Continuous Cari Ling MD linaGLIPtin (Tradjenta) tablet 5 mg 5 mg Oral Daily Alberto Boogie, STUDENT SERVICES REP 5 mg at 04/22/25 0946 meropenem (Merrem) 2,000 mg in sodium chloride 0.9 % 100 mL IVPB 2,000 mg IntraVENous q8h Kerwin Ricci DO midgregoriorine (Proamatine) tablet 10 mg 10 mg Oral TID Alberto Boogie, STUDENT SERVICES REP 10 mg at 04/22/25 0921 mirtazapine (Remeron) tablet 7.5 mg 7.5 mg Oral Nightly Alberto Miltons, STUDENT SERVICES REP naloxone (Narcan) nasal spray 4 mg 4 mg Nasal PRN Alberto Miltons, STUDENT SERVICES REP ondansetron ODT (Zofran-ODT) disintegrating tablet 4 mg 4 mg Oral q8h PRN Alberto Miltons, STUDENT SERVICES REP Or ondansetron (Zofran) injection 4 mg 4 mg IntraVENous q6h PRN Alberto Miltons, STUDENT SERVICES REP oxyCODONE (Roxicodone) immediate release tablet 15 mg 15 mg Oral 4x daily Alberto Miltons, STUDENT SERVICES REP 15 mg at 04/22/25 0921 polyethylene glycol (PEG) 3350 (Miralax) packet 17 g 17 g Oral BID Alberto Sanchez [place], STUDENT SERVICES REP 17 g at 04/22/25 0921 polyethylene glycol (PEG) 3350 (Miralax) packet 17 g 17 g Oral Daily PRN Alberto Miltons, STUDENT SERVICES REP pregabalin (Lyrica) capsule 200 mg 200 mg Oral TID Alberto Boogie, STUDENT SERVICES REP 200 mg at 04/22/25 0920 senna-docusate sodium (Senokot-S) 8.6-50 MG tablet 2 tablet 2 tablet Oral BID Alberto Miltons, STUDENT SERVICES REP 2 tablet at 04/22/25 0921 sodium chloride 0.9% (NS) flush 10 mL 10 mL IntraCATHeter q12h Alberto Miltons, STUDENT SERVICES REP 10 mL at 04/22/25 0634 sodium chloride 0.9% (NS) flush 10 mL 10 mL IntraCATHeter PRN Alberto Miltons, STUDENT SERVICES REP tamsulosin (Flomax) 24 hr capsule 0.4 mg 0.4 mg Oral Daily Alberto Miltons, STUDENT SERVICES REP 0.4 mg at 04/22/25 0922 vancomycin IVPB 1500 mg in 250 mL NS (premix) 1,500 mg IntraVENous q12h Alberto Miltons, STUDENT SERVICES REP [4] No Known Allergies [5] No family history on file. Associated Order(s): IP CONSULT TO GENERAL SURGERY Images from the original note were not included. Department of General Surgery Surgical Service - [facility] Resident Consult Note 04/22/2025 CHIEF COMPLAINT: Chief Complaint Patient presents with Wound Infection Per EMS pt was sent here from the [place] for wound infections. Pt has two wound on his sacrum - one at the top of sacrum and one at the bottom of the buttocks. Denies any fever/ CP/FEVER/ SOB. Pt is paralysis. Reason for Consult: "osteomyleitis of left inferior pubic ramus with sacral wounds" HISTORY OF PRESENT ILLNESS: Anmol Langley is a 64 y.o. male with significant past medical history of paraplegia s/p surgical complication with Dr. Ashley at [facility], HLD, HTN, MDD, OA, a-fib on eliquis, chronic sacral wounds who presents from his longterm after he states the nurses have become [...] w IV contrast Narrative: Patient Name: ANMOL LANGLEY : 1960 Exam Date/Time: 04/22/2025 00:01 Procedure: [...] chronic changes of the left hip. A Hudson catheter is present within a decompressed bladder. [...] Eliquis Patient discussed with attending, Dr. Carrero. Fei Nielson MD General Surgery Resident 04/22/25 4:39 AM This note may have been dictated using Dragon Medical Practice Edition 2.6 and/or App.io Voice Recognition Feature. The document was proofread; however, unrecognized voice recognition auditor errors may be present. [1] Past Medical [...] LEFT BILATERAL L2-3-4-5 DECOMPRESSION performed by Opal Ayala MD at [facility] OR ORTHOPEDIC SURGERY Right removal of hardware ankle US PLACE URETAL STENT PERC PRE-EXIST TRACT S&I (HISTORICAL) Bilateral 04/14/2024 Dr. Grimm/Bashir [3] Current Facility-Administered Medications Medication Dose Route [...] mg Oral TID PRN Alberto G Keagan, STUDENT SERVICES REP dextrose 5 % infusion 100 mL/hr IntraVENous PRN Alberto G [place], STUDENT SERVICES REP dextrose 50 % solution 12.5 g 12.5 g IntraVENous PRN Alberto G [place], STUDENT SERVICES REP DULoxetine (Cymbalta) DR capsule 30 mg 30 mg Oral Daily Alberto G [place], STUDENT SERVICES REP ferrous sulfate tablet 325 mg 325 mg Oral Daily with breakfast Alberto G Keagan, STUDENT SERVICES REP glucagon (human recombinant) injection 1 mg 1 mg IntraMUSCular PRN Ross G [place], STUDENT SERVICES REP glucose oral gel 15 g 15 g Oral PRN Alberto G [place], STUDENT SERVICES REP insulin glargine (Lantus) injection 45 Units 45 Units SubCUTAneous q AM Alberto G [place], STUDENT SERVICES REP Insulin Lispro (Humalog) injection 0-18 Units 0-18 Units SubCUTAneous TID WC Alberto G Keagan, STUDENT SERVICES REP And Insulin Lispro (Humalog) injection 0-18 Units 0-18 Units SubCUTAneous Nightly Alberto G [place], STUDENT SERVICES REP linaGLIPtin (Tradjenta) tablet 5 mg 5 mg Oral Daily Alberto G [place], STUDENT SERVICES REP midodrine (Proamatine) tablet 10 mg 10 mg Oral TID Alberto G [place], STUDENT SERVICES REP mirtazapine (Remeron) tablet 7.5 mg 7.5 mg Oral Nightly Alberto G [place], STUDENT SERVICES REP naloxone (Narcan) nasal spray 4 mg 4 mg Nasal PRN Alberto G [place], STUDENT SERVICES REP ondansetron ODT (Zofran-ODT) disintegrating tablet 4 mg 4 mg Oral q8h PRN Alberto G Keagan, STUDENT SERVICES REP Or ondansetron (Zofran) injection 4 mg 4 mg IntraVENous q6h PRN Alberto G [place], STUDENT SERVICES REP oxyCODONE (Roxicodone) immediate release tablet 15 mg 15 mg Oral 4x daily Ross G Keagan, STUDENT SERVICES REP polyethylene glycol (PEG) 3350 (Miralax) packet 17 g 17 g Oral BID Alberto G [place], STUDENT SERVICES REP polyethylene glycol (PEG) 3350 (Miralax) packet 17 g 17 g Oral Daily PRN Alberto G [place], STUDENT SERVICES REP pregabalin (Lyrica) capsule 200 mg 200 mg Oral TID Alberto G [place], STUDENT SERVICES REP senna-docusate sodium (Senokot-S) 8.6-50 MG tablet 2 tablet 2 tablet Oral BID Ross G Keagan, STUDENT SERVICES REP tamsulosin (Flomax) 24 hr capsule 0.4 mg 0.4 mg Oral Daily Alberto Sanchez TREVOR Boogie vancomycin IVPB 1500 mg in 250 mL NS (premix) 1,500 mg IntraVENous q12h Alberto Daniel TREVOR Boogie [4] Social History Socioeconomic History [...] Resource Strain: Low Risk (04/24/2023) Received from [facility] Overall Financial Resource Strain (CARDIA) Difficulty [...] results, and face to face with Anmol Langley discussing the diagnosis and importance of compliance [...] Note Consult Date: 04/22/25 Patient Name: Anmol Langley Allergies: Patient has no known allergies. Age: [...] creatinine, and vancomycin levels interfaced automatically to [employer] and data has been analyzed and interpreted. [...] via Secure Chat documented in this encounter [facility] 04-22-2025 Note Hospitalist Progress Note 04/22/2025 Subjective: Admit Date: 04/21/2025 PCP: Walter Alatorre Room#: N4-465/N4-465 B BRIEF HOSPITAL COURSE: 64-year-old [...] intensive monitoring: parenteral (more content not included)... [facility] 04-22-2025 Plan of care note Problem: [...] monitored and maintained or improved Outcome: Progressing T [facility] 04-22-2025 Note Pharmacy to Dose Van comycin - Progress Note Lab Results Component Value Date CREATININE 0.65 (L) 04/21/2025 BUN 10 04/21/2025 WBC 12.5 (H) 04/21/2025 VANCORANDOM 12.3 (L) 04/16/2024 VANCOTROUGH 12.4 04/22/2025 Doses, serum creatinine, and vancomycin levels interfaced automatically to [employer] and data has been analyzed and interpreted. [...] PharmD Clinical Pharmacist Available via Secure Chat [facility] 04-22-2025 Plan of care note Problem: [...] monitored and maintained or improved Outcome: Progressing [facility] 04-22-2025 Consult note Associated Order (s): IP CONSULT TO GENERAL SURGERY Images from the original note were not included. Department of General Surgery Surgical Service - [facility] Resident Consult Note 04/22/2025 CHIEF COMPLAINT: Chief Complaint Patient presents with Wound Infection Per EMS pt was sent here from the [place] for wound infections. Pt has two wound on his sacrum - one at the top of sacrum and one at the bottom of the buttocks. Denies any fever/ CP/FEVER/ SOB. Pt is paralysis. Reason for Consult: "osteomyleitis of left inferior pubic ramus with sacral wounds" HISTORY OF PRESENT ILLNESS: Anmol Langley is a 64 y.o. male with significant past medical history of paraplegia s/p surgical complication with Dr. Ashley at [facility], HLD, HTN, MDD, OA, a-fib on eliquis, chronic sacral wounds who presents from his longterm after he states the nurses have become [...] w IV contrast Narrative: Patient Name: ANMOL LANGLEY : 1960 [facility]#: [id number] Exam Date/Time: 04/22/2025 00:01 Procedure: CT PELVIS [...] chronic changes of the left hip. A Hudson catheter is present within a decompressed bladder. [...] Eliquis Patient discussed with attending, Dr. Carrero. Fei Nielson MD General Surgery Resident 04/22/25 4:39 AM This note may have been dictated using DYNAGENT SOFTWARE SL Practice Edition 2.6 and/or App.io Voice Recognition Feature. The document was proofread; however, unrecognized voice recognition auditor errors may be present. [1] Past Medical [...] LEFT BILATERAL L2-3-4-5 DECOMPRESSION performed by Opal Ayala MD at [facility] OR ORTHOPEDIC SURGERY Right removal of hardware ankle US PLACE URETAL STENT PERC PRE-EXIST TRACT S&I (HISTORICAL) Bilateral 04/14/2024 Dr. Grimm/Bashir [3] Current Facility-Administered Medications Medication Dose Route [...] 10 mg 10 mg Rectal Daily PRN Ross G Keagan, STUDENT SERVICES REP calcium carbonate (Tums) chewable tablet 1,000 mg 1,000 mg Oral q8h PRN Alberto Miltons, STUDENT SERVICES REP cefepime (Maxipime) 2,000 mg in sodium chloride 0.9 % 50 mL IVPB Mini-Bag Plus 2,000 mg IntraVENous q8h Alberto Miltons, STUDENT SERVICES REP cyclobenzaprine (Flexeril) tablet 10 mg 10 mg Oral TID PRN Alberto Sanchez [place], STUDENT SERVICES REP dextrose 5 % infusion 100 mL/hr IntraVENous PRN Alberto G [place], STUDENT SERVICES REP dextrose 50 % solution 12.5 g 12.5 g IntraVENous PRN Alberto Sanchez [place], STUDENT SERVICES REP DULoxetine (Cymbalta) DR capsule 30 mg 30 mg Oral Daily Alberto Miltons, STUDENT SERVICES REP ferrous sulfate tablet 325 mg 325 mg Oral Daily with breakfast Alberto Miltons, STUDENT SERVICES REP glucagon (human recombinant) injection 1 mg 1 mg IntraMUSCular PRN Alberto Miltons, STUDENT SERVICES REP glucose oral gel 15 g 15 g Oral PRN Alberto Miltons, STUDENT SERVICES REP insulin glargine (Lantus) injection 45 Units 45 Units SubCUTAneous q AM Alberto Miltons, STUDENT SERVICES REP Insulin Lispro (Humalog) injection 0-18 Units 0-18 Units SubCUTAneous TID WC Alberto Miltons, STUDENT SERVICES REP And Insulin Lispro (Humalog) injection 0-18 Units 0-18 Units SubCUTAneous Nightly Alberto Miltons, STUDENT SERVICES REP linaGLIPtin (Tradjenta) tablet 5 mg 5 mg Oral Daily Alberto Miltons, STUDENT SERVICES REP midodrine (Proamatine) tablet 10 mg 10 mg Oral TID Alberto Miltons, STUDENT SERVICES REP mirtazapine (Remeron) tablet 7.5 mg 7.5 mg Oral Nightly Alberto Sanchez [place], STUDENT SERVICES REP naloxone (Narcan) nasal spray 4 mg 4 mg Nasal PRN Alberto Miltons, STUDENT SERVICES REP ondansetron ODT (Zofran-ODT) disintegrating tablet 4 mg 4 mg Oral q8h PRN Alberto Miltons, STUDENT SERVICES REP Or ondansetron (Zofran) injection 4 mg 4 mg IntraVENous q6h PRN Alberto Miltons, STUDENT SERVICES REP oxyCODONE (Roxicodone) immediate release tablet 15 mg 15 mg Oral 4x daily Alberto Sanchez [place], STUDENT SERVICES REP polyethylene glycol (PEG) 3350 (Miralax) packet 17 g 17 g Oral BID Ross G [place], STUDENT SERVICES REP polyethylene glycol (PEG) 3350 (Miralax) packet 17 g 17 g Oral Daily PRN Alberto Boogie NP pregabalin (Lyrica) capsule 200 mg 200 mg Oral TID Alberto Boogie NP senna-docusate sodium (Senokot-S) 8.6-50 MG tablet 2 tablet 2 tablet Oral BID Alberto Boogie TREVOR tamsulosin (Flomax) 24 hr capsule 0.4 mg 0.4 mg Oral Daily Alberto Boogie TREVOR vancomycin IVPB 1500 mg in 250 mL [...] Resource Strain: Low Risk (04/24/2023) Received from [facility] Overall Financial Resource Strain (CARDIA) Difficulty [...] results, and face to face with Anmol Langley discussing the diagnosis and importance of compliance [...] Pressure injury of coccygeal region, stage 3 ([facility]) Bladder calculus Calculus of ureter Positive blood cultures Other acute osteomyelitis, other site ([facility]) [facility] 04-22-2025 Consult note Formatting of th is note is different from the original. Images from the original note were not included. Pharmacy Managed Vancomycin Dosing Service Consult Note Consult Date: 04/22/25 Patient Name: Anmol Langley Allergies: Patient has no known allergies. Age: [...] creatinine, and vancomycin levels interfaced automatically to [employer] and data has been analyzed and interpreted. [...] RPh Clinical Pharmacist Available via Secure Chat [facility] 04-22-2025 History and physical note Attending History and Physical Admit Date: 04/21/2025 PCP: Walter Alatorre CHIEF COMPLAINT: Wound infection Reason for Admission: Osteomyelitis History Obtained From: patient HISTORY OF PRESENT ILLNESS: Anmol is a 64 y.o. male with past medical history below who presents with chief complaint listed above. Patient sent to [facility] staff to leave the patient's wounds on his sacrum were worsening and becoming infected. Patient is a paraplegic for the last 4 years after surgical complication with Dr. Ashley at [facility]. ER workup was significant for sodium of [...] he normally does but states that the longterm felt like his wounds were getting worse [...] Resource Strain: Low Risk (04/24/2023) Received from [facility] Overall Financial Resource Strain (CARDIA) Difficulty of Paying Living Expenses: Not hard at all Food Insecurity: No Food Insecurity (02/17/2025) Received from [facility] Hunger Vital Sign Worried About Running Out of Food in the Last Year: Never true Ran Out of Food in the Last Year: Never true Transportation Needs: No Transportation Needs (02/17/2025) Received from [facility] PRAPARE - Transportation Lack of Transportation (Medical): No Lack of Transportation (Non-Medical): No Physical Activity: Not on file Stress: Not on file Social Connections: Not on file Intimate Partner Violence: Not At Risk (05/18/2024) Humiliation, Afraid, Rape, and Kick questionnaire Fear of Current or Ex-Partner: No Emotionally Abused: No Physically Abused: No Sexually Abused: No Housing Stability: Unknown (02/17/2025) Received from [facility] Housing Stability Vital Sign Unable to [...] Judgment: Judgment normal. DATA: CBC: Recent Labs 07/18/25 2257 WBC 12.5* RBC 4.03* HGB 11.7* [...] of the patient was discussed with Dr. Hawkins, who stated, in summary: large sacral and [...] Emergency Contact Information Primary Emergency Contact: Ronald Langley [place] Mobile Relation: Sibling Secondary Emergency Contact: SUMI LANGLEY Mobile Relation: Daughter [employer] Anmol Franco Gail : 1960 Primary Care Physician: Walter Alatorre The patient and/or family/surrogate voluntarily agreed to participate in ACP services. Patient s cognitive capacity: Alert and oriented x 4 Code Status: [X] [FULL CODE - Continue all advanced life support: CPR,intubation,invasive procedures] [_] [DNR-[facility] - DO NOT do CPR, intubation] [_] [DNR-BROACHING MACHINE REPAIRER - Comfort care only] [_] DNR form [...] LEFT BILATERAL L2-3-4-5 DECOMPRESSION performed by Opal Ayala MD at [facility] OR ORTHOPEDIC SURGERY Right removal of hardware ankle US PLACE URETAL STENT PERC PRE-EXIST TRACT S&I (HISTORICAL) Bilateral 04/14/2024 Dr. Grimm/Bashir [3] No family history on file. [4] [...] Rfl: [5] No Known Allergies Cosigned by Ab Hawkins MD at 04/22/2025 8:10 PM EDT Associated attestation - Ab Hawkins MD - 04/22/2025 8:10 PM EDT I have seen this patient and examined and agree with the management diagnosis and treatment as noted above. Mike Hawkins MD [facility] [employer] Phone: 04-22-2025 Note Attestation signed by Ab Hawkins MD at 04/22/2025 8:10 PM I have seen this patient and examined and agree with the management diagnosis and treatment as noted above. Mike Hawkins MD Attending History and Physical Admit Date: 04/21/2025 PCP: Walter Alatorre CHIEF COMPLAINT: Wound infection Reason for Admission: Osteomyelitis History Obtained From: patient HISTORY OF PRESENT ILLNESS: Anmol is a 64 y.o. male with past medical history below who presents with chief complaint listed above. Patient sent to [facility] ER by his longterm [facility] emergency department. [facility] staff to leave the patient's wounds on his sacrum were worsening and becoming infected. Patient is a paraplegic for the last 4 years after surgical complication with Dr. Ashley at [facility]. ER workup was significant for sodium of [...] he normally does but states that the longterm felt like his wounds were getting worse [...] Resource Strain: Low Risk (04/24/2023) Received from [facility] Overall Financial Resource Strain (CARDIA) Difficulty of Paying Living Expenses: Not hard at all Food Insecurity: No Food Insecurity (02/17/2025) Received from [facility] Hunger Vital Sign Worried About Running Out of Food in the Last Year: Never true Ran Out of Food in the Last Year: Never true Transportation Needs: No Transportation Needs (02/17/2025) Received from [facility] PRAPARE - Transportation Lack of Transportation (Medical): No Lack of Transportation (Non-Medical): No Physical Activity: Not on file Stress: Not on file Social Connections: Not on file Intimate Partner Violence: Not At Risk (05/18/2024) Humiliation, Afraid, Rape, and Kick questionnaire Fear of Current or Ex-Partner: No Emotionally Abused: No Physically Abused: No Sexually Abused: No Housing Stability: Unknown (02/17/2025) Received from [facility] Housing Stability Vital Sign Unable to [...] Normal rate a (more content not included)... [facility] 04-22-2025 History and physical note Attending History and Physical Admit Date: 04/21/2025 PCP: Walter Alatorre CHIEF COMPLAINT: Wound infection Reason for Admission: Osteomyelitis History Obtained From: patient HISTORY OF PRESENT ILLNESS: Anmol is a 64 y.o. male with past medical history below who presents with chief complaint listed above. Patient sent to [facility] staff to leave the patient's wounds on his sacrum were worsening and becoming infected. Patient is a paraplegic for the last 4 years after surgical complication with Dr. Ashley at [facility]. ER workup was significant for sodium of [...] he normally does but states that the longterm felt like his wounds were getting worse [...] Resource Strain: Low Risk (04/24/2023) Received from [facility] Overall Financial Resource Strain (CARDIA) Difficulty of Paying Living Expenses: Not hard at all Food Insecurity: No Food Insecurity (02/17/2025) Received from [facility] Hunger Vital Sign Worried About Running Out of Food in the Last Year: Never true Ran Out of Food in the Last Year: Never true Transportation Needs: No Transportation Needs (02/17/2025) Received from [facility] PRAPARE - Transportation Lack of Transportation (Medical): No Lack of Transportation (Non-Medical): No Physical Activity: Not on file Stress: Not on file Social Connections: Not on file Intimate Partner Violence: Not At Risk (05/18/2024) Humiliation, Afraid, Rape, and Kick questionnaire Fear of Current or Ex-Partner: No Emotionally Abused: No Physically Abused: No Sexually Abused: No Housing Stability: Unknown (02/17/2025) Received from [facility] Housing Stability Vital Sign Unable to [...] of the patient was discussed with Dr. Hawkins, who stated, in summary: large sacral and [...] Emergency Contact Information Primary Emergency Contact: Ronald Langley [place] Mobile Relation: Sibling Secondary Emergency Contact: SUMI LANGLEY Mobile Relation: Daughter [employer] Anmol Langley : 1960 Primary Care Physician: Walter Alatorre The patient and/or family/surrogate voluntarily agreed to participate in ACP services. Patient s cognitive capacity: Alert and oriented x 4 Code Status: [X] [FULL CODE - Continue all advanced life support: CPR,intubation,invasive procedures] [_] [DNR-CCA - DO NOT do CPR, intubation] [_] [DNR-BROACHING MACHINE REPAIRER - Comfort care only] [_] DNR form [...] LEFT BILATERAL L2-3-4-5 DECOMPRESSION performed by Opal Ayala MD at [facility] OR ORTHOPEDIC SURGERY Right removal of hardware ankle US PLACE URETAL STENT PERC PRE-EXIST TRACT S&I (HISTORICAL) Bilateral 04/14/2024 Dr. Grimm/Bashir [3] No family history on file. [4] [...] Rfl: [5] No Known Allergies Cosigned by Ab Hawkins MD at 04/22/2025 8:10 PM EDT Associated attestation - Ab Hawkins MD - 04/22/2025 8:10 PM EDT I have seen this patient and examined and agree with the management diagnosis and treatment as noted above. Mike Hawkins MD documented in this encounter [facility] 04-21-2025 Emergency department Note Placed new meplix pads on open wounds on sacrum. Pictures updated in pt's chart. [facility] 04-21-2025 Emergency department Note Placed new meplix pads on open wounds on sacrum. Pictures updated in pt's chart. EMERGENCY DEPARTMENT ENCOUNTER Pt Name: Anmol Langley Birthdate 1960 Date of evaluation: 04/21/2025 ED Provider: Chele León MD CHIEF COMPLAINT Chief Complaint Patient presents with Wound Infection Per EMS pt was sent here from the [facility] for wound infections. Pt has two wound on his sacrum - one at the top of sacrum and one at the bottom of the buttocks. Denies any fever/ CP/FEVER/ SOB. Pt is paralysis. HISTORY OF PRESENT ILLNESS (Location/Symptom, Timing/Onset, Context/Setting, Quality, Duration, Modifying Factors, Severity) Note limiting factors. I wore appropriate PPE for the entirety of this encounter. HPI Anmol Langley is a 64 y.o. adult who presents [...] Procedure Abnormality Status --------- ------ Culture, Aerobic Bacteri...[[id number]] Abnormal Preliminary result Anaerobic culture[[id number]] In process Please view results for these [...] IV vancomycin, IV cefepime for coverage. [facility] hospitalist was consulted for admission for [...] IMPRESSION 1. Other acute osteomyelitis, other site ([facility]) DISPOSITION Admit 04/22/2025 01:32:25 AM PATIENT REFERRED [...] LEFT BILATERAL L2-3-4-5 DECOMPRESSION performed by Opal Ayala MD at [facility] OR ORTHOPEDIC SURGERY Right removal of hardware ankle US PLACE URETAL STENT PERC PRE-EXIST TRACT S&I (HISTORICAL) Bilateral 04/14/2024 Dr. Grimm/Bashir [3] No family history on file. [4] [...] Resource Strain: Low Risk (04/24/2023) Received from [facility] Overall Financial Resource Strain (CARDIA) Difficulty of Paying Living Expenses: Not hard at all Food Insecurity: No Food Insecurity (02/17/2025) Received from [facility] Hunger Vital Sign Worried About Running Out of Food in the Last Year: Never true Ran Out of Food in the Last Year: Never true Transportation Needs: No Transportation Needs (02/17/2025) Received from [facility] PRAPARE - Transportation Lack of Transportation (Medical): No Lack of Transportation (Non-Medical): No Intimate Partner Violence: Not At Risk (05/18/2024) Humiliation, Afraid, Rape, and Kick questionnaire Fear of Current or Ex-Partner: No Emotionally Abused: No Physically Abused: No Sexually Abused: No Housing Stability: Unknown (02/17/2025) Received from [facility] Housing Stability Vital Sign Unable to Pay for Housing in the Last Year: No Homeless in the Last Year: No Chele León MD Resident 04/22/25 0219 Cosigned by Brad Campos MD at 04/22/2025 2:22 AM EDT documented in this encounter [facility] 04-21-2025 Physician Emergency department Note EMERGENCY DEPARTMENT ENCOUNTER Pt Name: Anmol Langley Birthdate 1960 Date of evaluation: 04/21/2025 ED Provider: Chele León MD CHIEF COMPLAINT Chief Complaint Patient presents with Wound Infection Per EMS pt was sent here from the [facility] for wound infections. Pt has two wound on his sacrum - one at the top of sacrum and one at the bottom of the buttocks. Denies any fever/ CP/FEVER/ SOB. Pt is paralysis. HISTORY OF PRESENT ILLNESS (Location/Symptom, Timing/Onset, Context/Setting, Quality, Duration, Modifying Factors, Severity) Note limiting factors. I wore appropriate PPE for the entirety of this encounter. HPI Anmol Langley is a 64 y.o. adult who presents [...] Family History[3] SOCIAL HISTORY Social History[4] SCREENINGS [place] Coma Scale Best Eye Response: Spontaneous Best [...] Procedure Abnormality Status --------- ------ Culture, Aerobic Bacteri...[[id number]] Abnormal Preliminary result Anaerobic culture[[id number]] In process Please view results for these [...] received IV vancomycin, IV cefepime for coverage. [facility] hospitalist was consulted for admission for osteomyelitis [...] claudication Type 2 diabetes mellitus without complication ([facility]) (HCC) Urinary calculus, unspecified UTI (urinary tract infection) [2] Past Surgical History: Procedure Laterality Date ANKLE SURGERY Right He has a titanium plate to the right ankle KNEE SURGERY Left ACL KNEE SURGERY Left removal of screw LAMINECTOMY Left 10/24/2020 LEFT BILATERAL L2-3-4-5 DECOMPRESSION performed by Opal Ayala MD at [facility] OR ORTHOPEDIC SURGERY Right removal of hardware ankle US PLACE URETAL STENT PERC PRE-EXIST TRACT S&I (HISTORICAL) Bilateral 04/14/2024 Dr. Grimm/Bashir [3] No family history on file. [4] [...] Resource Strain: Low Risk (04/24/2023) Received from [facility] Overall Financial Resource Strain (CARDIA) Difficulty of Paying Living Expenses: Not hard at all Food Insecurity: No Food Insecurity (02/17/2025) Received from [facility] Hunger Vital Sign Worried About Running Out of Food in the Last Year: Never true Ran Out of Food in the Last Year: Never true Transportation Needs: No Transportation Needs (02/17/2025) Received from [facility] PRAPARE - Transportation Lack of Transportation (Medical): No Lack of Transportation (Non-Medical): No Intimate Partner Violence: Not At Risk (05/18/2024) Humiliation, Afraid, Rape, and Kick questionnaire Fear of Current or Ex-Partner: No Emotionally Abused: No Physically Abused: No Sexually Abused: No Housing Stability: Unknown (02/17/2025) Received from [facility] Housing Stability Vital Sign Unable to Pay for Housing in the Last Year: No Homeless in the Last Year: No Chele León MD Resident 04/22/25 0219 Cosigned by Brad Campos MD at 04/22/2025 2:22 AM EDT [facility] 04-21-2025 Physician Emergency department Note Patient: Anmol Langley : 1960 Date of Evaluation: 04/21/2025 ED Supervising Physician: Brad Campos MD I personally evaluated Anmol Langley and made/approved the management plan and take responsibility for the patient management. In brief, Anmol Langley is a 64 y.o. that presents to the emergency department with concerns for wound infection. Patient is paraplegic secondary to a surgical complication years ago. States that he is at a longterm and they were concerned that his wounds [...] EMS pt was sent here from the [facility] for wound infections. Pt has two wound [...] Response: Oriented Best Motor Response: Follows commands [place] Coma Scale Score: 15 PHYSICAL EXAM ED [...] Procedure Abnormality Status --------- ------ Culture, Aerobic Bacteri...[[id number]] Abnormal Preliminary result Anaerobic culture[[id number]] In process Please view results for these [...] LEFT BILATERAL L2-3-4-5 DECOMPRESSION performed by Opal Ayala MD at [facility] OR ORTHOPEDIC SURGERY Right removal of hardware ankle US PLACE URETAL STENT PERC PRE-EXIST TRACT S&I (HISTORICAL) Bilateral 04/14/2024 Dr. Grimm/Bashir [3] No family history on file. [4] [...] Resource Strain: Low Risk (04/24/2023) Received from [facility] Overall Financial Resource Strain (CARDIA) Difficulty of Paying Living Expenses: Not hard at all Food Insecurity: No Food Insecurity (02/17/2025) Received from [facility] Hunger Vital Sign Worried About Running Out of Food in the Last Year: Never true Ran Out of Food in the Last Year: Never true Transportation Needs: No Transportation Needs (02/17/2025) Received from [facility] PRAPARE - Transportation Lack of Transportation (Medical): No Lack of Transportation (Non-Medical): No Intimate Partner Violence: Not At Risk (05/18/2024) Humiliation, Afraid, Rape, and Kick questionnaire Fear of Current or Ex-Partner: No Emotionally Abused: No Physically Abused: No Sexually Abused: No Housing Stability: Unknown (02/17/2025) Received from [facility] Housing Stability Vital Sign Unable to Pay for Housing in the Last Year: No Homeless in the Last Year: No Brad Campos MD 04/22/25 0201 [employer] Work Phone: 03-24-2025 Telephone encounter Note Per op note pt should get a renal US in [address]. [address] the order? [facility] 03-24-2025 Miscellaneous Notes Per op note pt should get a renal US in [address] the order? documented in this encounter [facility] 03-20-2025 Note HNO ID: [id number] Author: JAX CESPEDES APRN.DEPUTY SHERIFF BAILIFF Service: Anesthesiology Author Type: Nurse Bolter Helper Type: Anesthesia Procedure Notes Filed: 03/20/2025 10:33 [...] Hand Imaging Guidance Used: No SIGNATURE: Jax Cespedes APRN.DEPUTY SHERIFF BAILIFF PATIENT NAME: Anmol Hernandez Given DATE: March 20, 2025 TIME: 10:32 AM CSN: [id number] [facility] 03-20-2025 Note HNO ID: [id number] Author: JAX CESPEDES APRN.DEPUTY SHERIFF BAILIFF Service: Anesthesiology Author Type: Nurse Bolter Helper Type: Anesthesia Procedure Notes Filed: 03/20/2025 10:32 Note Text: ANESTHESIOLOGY PROCEDURE NOTE Airway General Information Procedure Start Time/Medication Administration: 03/20/2025 10:27 AM Procedure End Time: 03/20/2025 10:27 AM Patient location during procedure: OR Consent Obtained: Yes Patient identity confirmed: arm band and patient Staffing DEPUTY SHERIFF BAILIFF: Jax Cespedes APRN.DEPUTY SHERIFF BAILIFF Performed by: DEPUTY SHERIFF BAILIFF Indications and Patient Condition Indications for airway management: anesthesia Preoxygenated: yes anesthesia circuit Patient position: sniffing Method: asleep Difficult Mask: No Final Airway Details Final airway type: supraglottic airway Final Supraglottic Airway: i-gel Size 5 Seal Adequate: yes Failed airway: no Airway not difficult SIGNATURE: Jax Cespedes APRN.CRNA PATIENT NAME: Anmol Hernandez Given DATE: March 20, 2025 TIME: 10:32 AM CSN: [id number] [facility] 03-15-2025 Telephone encounter Note Spoke to nursing facility who states Pt is going to proceed with surgery at [facility]. [facility] 03-15-2025 Miscellaneous Notes Spoke to nursing facility who states Pt is going to proceed with surgery at [facility]. Left message for Pts nurse to call me back. Can you call [facility] emergency department and see if they are going to send disc to us? Or if patient still scheduled for procedure at [facility]. [facility] number: [phone] Still need disc with images. Will need to review with Dr. Grimm. Is it OK to get Pt scheduled for surgery? Please advise. Talked to staff from [facility] that patient would like to have procedure at [facility]. Requested that CD with images from [facility] be sent to [facility]. Staff will let Farideh know- she does scheduling/arranges procedures for residents. [facility] number: [phone] documented in this encounter [facility] 03-15-2025 Telephone encounter Note Left message for Pts nurse to call me back. [facility] 03-14-2025 Note HNO ID: [id number] Author: MILAD GOODSON MD Service: ? Author Type: Physician Type: Progress Notes Filed: 03/20/2025 10:37 Note Text: INFECTIOUS DISEASE WOUND CENTER NOTE Patient Name: Anmol Langley Date: 03/14/2025 ASSESSMENT: Worsening ischial wound post hospitalization at [facility] recently Chronic sacral S5 segment chronic [...] clinical infection in the area Wound center GRINDING MACHINE OPERATOR PORTABLE follow up in 1 week INTERVAL HISTORY: ROS done with pt and negative unless stated. Was recently admitted to [facility] and needed intubation and ventilation. Since [...] 11/25/2021 8 09/06/2021 (more content not included)... [facility] 03-14-2025 History of Present illness Narrative Images from the original note were not included. INFECTIOUS DISEASE WOUND CENTER NOTE Patient Name: Anmol Langley Date: 03/14/2025 ASSESSMENT: Worsening ischial wound post hospitalization at [facility] recently Chronic sacral S5 segment chronic [...] clinical infection in the area Wound center GRINDING MACHINE OPERATOR PORTABLE follow up in 1 week INTERVAL HISTORY: ROS done with pt and negative unless stated. Was recently admitted to [facility] and needed intubation and ventilation. Since [...] with multiple staff Home Care Company/Nursing Facility: [facility] Consent captured for debridement per (Provider) and good until Special Instructions (for example, patient stands at the bedside for exam/dressing): bed Anticoagulant Therapy: Eliquis Living Situation (ie... Apartment, house, ADRIANNA): [facility] emergency department Who lives with patient: facility Who will [...] BY PROVIDER: Anesthetic Used: N/A applied per manager delivery # 1 & 2 Other procedure: Specimen [...] order date DME: [employer] , PH: [phone] SPECIAL NEEDS: EFax orders to [facility] [place] [phone] Emotional support N/A OR set-up N/A Lithographic Proofer Apprentice N/A Incontinence needs N/A DISCHARGED in stable [...] be drawn PARI and results faxed to [facility] [phone] Stop smoking EDUCATION: The patient/family was instructed [...] the [facility] documented in this encounter [facility] 03-14-2025 Instructions Dawood Tiwari RN - 03/14/2025 2:16 PM EDT WOUND CARE INSTRUCTIONS- Anmol Langley Wound location: sacrum & left ischium [facility] Wound Cleansing: -Gather supplies -Place down [...] following changes to the Wound Center at [phone] or go to the Emergency Department: Fever or chills Increased drainage Green or yellow drainage Foul odor Increased pain Hardness around the wound Redness, warmth or swelling of the surrounding tissue Color change to the wound When contacting the wound center at the ([phone]): Leave a message that includes your full [...] be drawn PARI and results faxed to [facility] [phone] Stop smoking Milad Goodson MD/jose/lt documented in this encounter [facility] 03-14-2025 Note HNO ID: [id number] Author: DAWOOD TIWARI RN Service: ? Author Type: Registered Nurse Type: Progress Notes Filed: 03/14/2025 14:54 Note Text: Nursing Documentation Pertinent Medical History: paraplegia, MRSA, osteomyelitis, UTI, DM2, neuropathy, pyelonephritis, Wound Etiology according to patient: sacrum wound has had for four years per pt Patient arrived via: self in motorized wheelchair - patient is a [place] with multiple staff Home Care Company/Nursing Facility: [facility] Consent captured for debridement per (Provider) [...] BY PROVIDER: Anesthetic Used: N/A applied per manager delivery # 1 AND 2 Other procedure: Specimen [...] order date DME: [employer] , PH: [phone] [facility]: [facility] [phone] Emotional support N/A OR set-up N/A Lithographic Proofer Apprentice N/A Incontinence needs N/A DISCHARGED in stable [...] be drawn PARI and results faxed to [facility] [phone] Stop smoking EDUCATION: The patient/family was instructed [...] had radiation therapy (more content not included)... [facility] 03-14-2025 Note Can you call [facility] and see if they are going to send disc to us? Or if patient still scheduled for procedure at [facility]. [facility] number: [phone] [facility] 03-14-2025 Telephone encounter Note Can you call [facility] emergency department and see if they are going to send disc to us? Or if patient still scheduled for procedure at [facility]. [facility]: [phone] [facility] Work Phone: 03-14-2025 Miscellaneous Notes Can you call [facility] emergency department and see if they are going to send disc to us? Or if patient still scheduled for procedure at [facility]. [facility] number: [phone] Still need disc with images. Will need to review with Dr. Grimm. Is it OK to get Pt scheduled for surgery? Please advise. Talked to staff from [facility] that patient would like to have procedure at [facility]. Requested that CD with images from [facility] be sent to [facility]. Staff will let Farideh know- she does scheduling/arranges procedures for residents. [facility] number: [phone] documented in this encounter [facility] 03-13-2025 Telephone encounter Note Still need disc with images. Will need to review with Dr. Grimm. [facility] Work Phone: 03-13-2025 Miscellaneous Notes Still need disc with images. Will need to review with Dr. Grimm. Is it OK to get Pt scheduled for surgery? Please advise. Talked to staff from [facility] that patient would like to have procedure at [facility]. Requested that CD with images from [facility] be sent to [facility]. Staff will let Farideh know- she does scheduling/arranges procedures for residents. [facility]: [phone] documented in this encounter [facility] 03-13-2025 Telephone encounter Note Is it OK to get Pt scheduled for surgery? Please advise. [facility] 03-08-2025 Telephone encounter Note Patient is scheduled and longterm was notified. Information was faxed. [facility] 03-08-2025 Miscellaneous Notes Patient is scheduled and longterm was notified. Information was faxed. [facility] Needs outpt cysto, pyelograms, bilateral stent change vs removal in 2-3 weeks. documented in this encounter [facility] 03-07-2025 Note Talked to staff from [facility] that patient would like to have procedure at [facility]. Requested that CD with images from [facility] be sent to [facility]. Staff will let Farideh know- she does scheduling/arranges procedures for residents. [facility] number: [phone] [facility] 03-07-2025 Telephone encounter Note Talked to staff from [facility] that patient would like to have procedure at [facility]. Requested that CD with images from [facility] be sent to [facility]. Staff will let Farideh know- she does scheduling/arranges procedures for residents. [facility] number: [phone] [facility] 03-07-2025 Miscellaneous Notes Talked to staff from [facility] that patient would like to have procedure at [facility]. Requested that CD with images from [facility] be sent to [facility]. Staff will let Farideh know- she does scheduling/arranges procedures for residents. [facility] [place] number: [phone] documented in this encounter [facility] 03-07-2025 History of Present illness Narrative Images from the original note were not included. JOE Burks CNP 03/07/2025 9:15 AM Urology Office Visit [facility] [address], [address] [facility] [address] PATIENT NAME: Anmol Franco Given DATE OF : 1960 REFERRING PROVIDER: No ref. provider found PCP: Walter Alatorre TODAY'S DATE: 03/07/2025 Visit type: Established patient HPI: Anmol is a 64 y.o. male who presents today with chief complaints of: Chief Complaint Patient presents with Nephrolithiasis 04/14/2024 underwent Cystoscopy pyelogram bilateral stent change Hudson insertion with Dr Grimm for fungus ball/stone in bladder 05/05/2024 underwent Cystoscopy pyelogram litholapaxy of large bladder stone left ureteroscopy with replacement of left stent, right stent change with Dr Grimm Did not have any follow up for stent removal/exchange. Presented to OSH ER 02/16/25 unresponsive. Septic- culture w gram negative rods. Treated. Follow up outpatient with [facility] Patient is scheduled for surgery w Dr Maria on 03/20/25 however he prefers treatment at [facility] Will need images for surgery planning. Chronic hudson 2/2 NGB paraplegia Review of Systems: All [...] 5. Urinary bladder is nondistended with indwelling Hudson catheter and a couple small foci of [...] 8. Details above. 9. Follow-up as indicated. [employer] Laboratory Manager: CECILIA Transcribe Date/Time: Feb 16 2025 10:02P Dictated by : CORBIN PERRY MD This examination was interpreted and the report reviewed and electronically signed by: CORBIN PERRY MD on Feb 16 2025 10:34PM EST Narrative * * *Final Report* * * DATE OF EXAM: Feb 16 2025 8:33PM [facility] [id number] - CT ABD/PEL W IVCON / [...] Pelvis: Urinary bladder is nondistended with indwelling Hudson catheter and a couple small foci of [...] Follow up: No follow-ups on file. Yoana Correia, GRINDING MACHINE OPERATOR PORTABLE - BEADER TENDER [facility] Please note that portions of this chart were dictated using [employer] electronic voice recognition software. It is possible [...] LEFT BILATERAL L2-3-4-5 DECOMPRESSION performed by Opal Ayala MD at [facility] OR ORTHOPEDIC SURGERY Right removal of hardware ankle US PLACE URETAL STENT PERC PRE-EXIST TRACT S&I (HISTORICAL) Bilateral 04/14/2024 Dr. Grimm/Bashir [3] No Known Allergies documented in this encounter [facility] 03-07-2025 Instructions JOE Burks CNP - 03/07/2025 9:00 AM EDT Need images from [facility] on disc brought to office for review in order for patient to have ureteral stent treatment at [facility]. Patient prefers [facility]. CT abdomen/pelvis 02/16/25 XR abdomen 02/16/25 and 02/17/25 Planning for ESWL vs laser litho w stent exchange. documented in this encounter [facility] 02-22-2025 Note HNO ID: [id number] Author: JESSICA CLEMENT RPh Service: Pharmacy Author [...] time from discharge medication list. Jessica Clement [facility] Pager: [phone] 02/22/2025 3:26 PM Medication List START taking [...] solution Generic drug: insulin glargine-yfgn [facility] 02-22-2025 Note HNO ID: [id number] Author: ANDREA PALENCIA RN Service: Care Management Author Type: Registered Nurse Type: Care Mgt Progress Note Filed: 02/22/2025 15:26 Note Text: CARE MANAGEMENT DISCHARGE NOTE SERVICE DATE: February 22, 2025 SERVICE TIME: 3:24 PM Admission Date: 02/16/2025 LOS: 5 days Discharge Arrangement Discharge Arrangement: Extended Care Facility Services Arranged Provider Name: [facility] Caregiver Assessment Caregiver is ready, willing and able to meet the patient's needs as recommended by the inter-professional team: Yes Name of Caregiver: Facility staff Transportation Arrangements Transportation Arrangements: Ambulance Transportation Agency and Phone #:: [facility] ( [facility] ) [phone] / [phone] Date of Trip: 02/22/25 Time of Trip: 1999 Type of Service: BLS Non-emergency Is Patient Medicaid Pending?: No Was transportation financial coverage discussed with family?: Patient Flexible Nanny Location: [facility] Destination: Return to [facility] Financial Care Management Responsibility: None Handoff Communication: Additional Information: Met with pt and he is agreeable to return to [facility]. Will D/C today at 8 pm via cot with [employer].. D/C paperwork sent electronically and RN to call N2N report. Pt stated he called his brother re: the D/C and time of return to ECF. SIGNATURE: Andrea Palencia RN PATIENT NAME: Anmol Given DATE: February 22, 2025 TIME: 3:24 PM [facility] 02-22-2025 Note HNO ID: [id number] Author: ANDREA PALENCIA RN Service: Care Management Author Type: Registered Nurse Type: Care Mgt Progress Note Filed: 02/22/2025 15:22 Note Text: CARE MANAGEMENT PROGRESS NOTE SERVICE DATE: 02/22/2025 SERVICE TIME: 3:22 PM LOS: 5 days IMM Follow Up Copy Given: Yes Copy given to:: Patient Boxing Promoter Name/Relationship: Ilir Jonas Method: In Person Met with pt in room and explained the IMM, he states he understands. He is agreeable to D/C. SIGNATURE: Andrea Palencia RN PATIENT NAME: Anmol Given DATE: February 22, 2025 TIME: 3:22 PM [facility] 02-22-2025 Note HNO ID: [id number] Author: ANDREA PALENICA RN Service: Care Management Author Type: Registered Nurse Type: Care Mgt Progress Note Filed: 02/22/2025 13:53 Note Text: CARE MANAGEMENT PROGRESS NOTE SERVICE DATE: 02/22/2025 SERVICE TIME: 1:53 PM LOS: 5 days IMM Follow Up Copy Given: Yes Copy given to:: Patient Boxing Promoter Boxing Promoter Name/Relationship: Ilir Jonas Method: By Phone SIGNATURE: Andrea Palencia RN PATIENT NAME: Anmol Given DATE: February 22, 2025 TIME: 1:53 PM [facility] 02-21-2025 Note HNO ID: [id number] Author: ANDREA PALENCIA RN Service: Care Management Author Type: Registered Nurse Type: Care Mgt Progress Note Filed: 02/21/2025 15:41 Note Text: CARE MANAGEMENT PROGRESS NOTE SERVICE DATE: 02/21/2025 SERVICE TIME: 3:39 PM LOS: 4 days D/C plan to return To [facility] when medically ready. D/C packet created and will need cot transport when ready. SIGNATURE: Andrea Palencia RN PATIENT NAME: Anmol Given DATE: February 21, 2025 TIME: 3:39 PM [facility] 02-21-2025 Note HNO ID: [id number] Author: BRIA ASHRAF MD Service: Hospital Medicine Author Type: Physician Type: Progress Notes Filed: 02/21/2025 13:23 Note Text: DEPARTMENT OF HOSPITAL MEDICINE Hospital Medicine/Primary Attending: Bria Ashraf MD NIGHT AND WEEKEND COVERAGE: After 7pm please page [phone] MEDICATIONS: Current Facility-Administered Medications Medication Dose Route [...] 4.0 COAG: Recent Labs 02/19/25 1051 02/19/25 04102/18/25201102/18/25 1300 02/18/25 0643 02/18/25 0021 02/17/25 1728 [...] 0.64* 1.04 1.90* 2.35* CHEM: Recent Labs 02/21/2545302/20/2539 02/19/2541802/18/2541902/17/2522402/16/251921 ALB 2.5* 2.3* 2.3* 2.3* 2.5* 2.3* TPROT 6.6 5.7* 5.5* 5.8* 6.0* 5.9* CA 8.2* 7.7* 7.8* 7.8* 8.2* 7.7* MG -- -- -- 2.3 -- 1.6* HEPATIC: Recent Labs 02/21/2545302/20/2553802/19/2541802/18/2541902/17/2522402/16/251921 ALKPHOS 121* 107 112 115* 174* 286* ALT 15 17 21 25 21 17 AST 23 22 25 38 41* 31 TBILI 0.8 0.8 0.5 0.6 0.9 0.9 URINALYSIS: Recent Labs 02/16/25 2107 SPGR 1.037* UGLUC Negative UBILI Negative UKET Negative UHB 3+* UPROT 2+* UWBC >25 /HPF* CARDIAC: No results for input(s): "PBNP" in the last 168 hours. Problem List Septic shock (HCC) (POA: Yes) Pyelitis (POA: Yes) Presence of indwelling Hudson catheter (POA: Yes) Pressure injury of left [...] sounds (more content not included)... [facility] 02-20-2025 Note HNO ID: [id number] Author: YOANA OROSCO, LIBRADO Service: ? Author Type: Registered Nurse Type: Nursing Progress Note Filed: 02/20/2025 18:07 Note Text: Other: Report called to 4100 RN. [facility] 02-20-2025 Note HNO ID: [id number] Author: GAYLE ZAYAS MD Service: Infectious Disease Author Type: Physician [...] as source based on patient with chronic Hudson catheter due to paraplegia and neurogenic bladder and because of bacteremia suspected pyelonephritis. Also with stents but they may not have been the initial source. Discussed with urology and stents can be removed when patient stable enough. Apparently he has had them in quite a long time. #-Presence of chronic Hudson catheter due to urinary retention/neurogenic bladder issues-this [...] to urology. 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 Spinal cord injury residing at [facility], presented to [facility] 02/16/2025 for unresponsiveness when normally alert [...] Also history of ESBL Klebsiella UTI. Chronic Hudson catheter. In April 2024 bilateral hydronephrosis with [...] consulted due to neurogenic bladder with chronic Hudson, also for the urosepsis with bilateral ureteral [...] that although she was not at the longterm she was called and told he was mentally out of it and ill so they brought him in. She did state that his urine was pretty cloudy. He has a chronic Hudson catheter due to paraplegia and neurogenic bladder [...] d (more content not included)... [facility] 02-20-2025 Note HNO ID: [id number] Author: PENNY VILLASEÑOR RN Service: Care Management Author Type: Registered Nurse Type: Care Mgt Progress Note Filed: 02/20/2025 16:13 Note Text: CARE MANAGEMENT PROGRESS NOTE SERVICE DATE: 02/20/2025 SERVICE TIME: 4:11 PM LOS: 3 days Needs Prior to Discharge: Discharge Transportation DC plan: [facility]. Pt is LTC and a bed hold. Updates to facility. Met with pt and provided update. Pt agreeable to return. SIGNATURE: Penny Villaseñor RN PATIENT NAME: Anmol Given DATE: February 20, 2025 TIME: 4:11 PM [facility] 02-20-2025 Note HNO ID: [id number] Author: ELIZABETH SOLER MD Service: Critical Care Author Type: Physician Type: Progress Notes Filed: 02/20/2025 13:05 Note Text: [facility] STAFF PHYSICIAN NOTE OF PERSONAL INVOLVEMENT IN CARE I have reviewed the documentation by the resident/ AALIYAH and I personally participated in the thomas components. I have discussed the case and management of the patient's care. The following comments revise or confirm relevant thomas components of the note. 64 y/o M with extensive medical hx who presented from longterm for AMS. In the ED, was obtunded and intubated. Found to be hypotensive and tachycardic, eventually requiring vasopressors. Workup revealed MK, UTI, and multiple other findings. He has chronic Hudson catheter due to paraplegia and neurogenic bladder. [...] 2024 #UTI in setting of neurogenic bladder/chronic hudson #Acute hypoxemic respiratory failure s/p extubation 02/17 [...] improves Urology input appreciated, follow up at [facility] urology Remains off of amiodarone, start low-dose [...] Any un-relevant data was deleted. SIGNATURE: Elizabeth Sloer MD [facility] TIME of SERVICE: 8:32 AM [facility] 02-20-2025 Note HNO ID: [id number] Author: ELIZABETH SOLER MD Service: Critical Care Author Type: Physician Type: Progress Notes Filed: 02/20/2025 15:25 Note Text: MICU PROGRESS NOTE PATIENT NAME: Anmol Langley REASON FOR ADMISSION: Septic shock (HCC) LOS: 3 Subjective HPI Mr. Anmol Langley is a 64 year old male with PMH: L2-L3 epidural abscess 01/14/22 C/b spinal stenosis, MRSA bacteremia, paraplegia, and chronic hudson Hx ESBL klebsiella pneumoniae UTI S/p L2-L3 laminectomy and posterior fusion T2DM, last HbA1C 6.5 - 01/23/2022 Bilateral hydronephrosis s/p ureteral stent placement April 2024 Chronic sacral osteomyelitis Chronic normocytic anemia Chronic hematuria The patient initially presented to the [facility] ED on February 16, 2025 after being found unresponsive at his shelter facility. MICU was consulted for septic shock, [...] recommended patient to follow-up with urology at [facility]. Patient was extubated on 02/17 successfully. Course [...] Value Units Date/Time Respiratory Culture and Stain [[id number]] (Abnormal) (Susceptibility) Collected: 02/17/25 1010 Order Status: [...] S (more content not included)... [facility] 02-19-2025 Note HNO ID: [id number] Author: GAYLE ZAYAS MD Service: Infectious Disease Author Type: Physician Type: Plan of Care Filed: 02/19/2025 18:36 Note Text: ID Continuing meropenem due to multiple gram-negative's and Enterococcus faecalis in blood and urine culture Gayle Zayas MD 02/19/2025 6:36 PM pgr [phone] [facility] 02-19-2025 Telephone encounter Note Needs outpt cysto, pyelograms, bilateral stent change vs removal in 2-3 weeks. [facility] Work Phone: 02-19-2025 Note HNO ID: [id number] Author: RADHA QUINTANA [facility] Service: Pharmacy Author Type: Pharmacist Type: Plan [...] if inpatient anticoagulation education is needed. Radha Quintana, [facility] 02-19-2025 Note HNO ID: [id number] Author: ANMOL HERBERT MD Service: Urology Author [...] bed. Reports no complaints overnight. Denies pain. Hudson draining well. Objective VS: BP 83/53 Pulse [...] Soft, nontender, nondistended : no suprapubic tenderness hudson in place draining clear, yellow urine Participation of a fellow, resident, medical student, or advanced practice provider student in performing the sensitive examination was discussed with the patient or authorized auto claim representative. The patient or authorized auto claim representative has agreed to proceed with the sensitive examination. Labs and Imaging Studies LABS: BMP: Recent Labs 02/19/2541802/18/2541902/17/25224 NA 137 135* 132* K 3.7 3.9 4.7 CHLOR 106 104 104 CO2 21* 20* 17* BUN 36* 37* 34* CREAT 0.64* 1.04 1.90* GLUC 115* 177* 225* CBC: Recent Labs 02/19/25 04102/18/25 0420 02/17/25 1009 02/17/2522402/16/25 1922 WBC 9.94 13.39* 14.96* 19.64* 10.29 HB 11.1* 11.3* 13.1 11.9* 11.6* HCT 32.5* 33.9* 41.4 36.6* 34.9* PLT 87* 69* 64* 93* 108* Urinalysis: Specific [place], Ur Date Value Ref Range Status 02/16/2025 [...] male with chronic bilateral stents placed at [facility] in MAY 2024 - no acute surgical intervention - remains off levo - daily labs; cr stable - plan to follow up with [facility] urology for stent removal unless becomes unstable / concern for removal needed sooner, then we would discuss OR inpatient - appreciate ICU care - urology to sign off at this time - please reach out with any questions or concerns Tiffanie Baltazar, Urology PGY-1 February 19, 2025 10:11 AM [facility] 02-19-2025 Note HNO ID: [id number] Author: ELIZABETH SOLER MD Service: Critical Care Author Type: Physician Type: Progress Notes Filed: 02/19/2025 11:52 Note Text: MICU PROGRESS NOTE PATIENT NAME: Anmol Langley REASON FOR ADMISSION:Septic shock LOS: 2 Subjective HPI Anmol Langley is a 64 year old male with PMH L2-L3 epidural abscess 01/14/22 C/b spinal stenosis, MRSA bacteremia, paraplegia, and chronic hudson Hx ESBL klebsiella pneumoniae UTI S/p L2-L3 laminectomy and posterior fusion T2DM, last HbA1C 6.5 - 01/23/2022 Bilateral hydronephrosis s/p ureteral stent placement April 2024 Chronic sacral osteomyelitis Chronic normocytic anemia Chronic hematuria The patient initially presented to the [facility] ED on February 16, 2025 after being found unresponsive at his shelter facility. MICU was consulted for septic shock, [...] recommended patient to follow-up with urology at [facility]. Patient was extubated on 02/17 successfully. Course [...] this admission. Pt can follow up with [facility] Urology Infectious disease: Discontinue vancomycin and continue [...] -- -- -- 1.2 CMP: Recent Labs 02/19/2541802/18/2541902/17/2522402/16/25 1922 GLUC 115* 177* 225* 131* NA [...] Value Units Date/Time Respiratory Culture and Stain [[id number]] (Abnormal) Collected: 02/17/25 1010 Order Status: Completed Specimen: Sputum Updated: 02/18/25 0916 Culture, Respiratory Few Normal respiratory gosia present Gram Stain Few Mixed oral gosia Rare Polymorphonuclear leukocytes Few Epithelial cells Blood Culture [[id number]] (Abnormal) Collected: 02/16/25 1928 Order Status: Completed Specimen: Blood Updated: 02/18/25 1603 Culture, Blood Culture report of Enterococcus faecalis Comment: Cephalosporins, clindamycin, and TMP-SMX are not effective for the treatment of enterococcal (more content not included)... [facility] 02-19-2025 Note HNO ID: [id number] Author: NOTE, INTERFACE, ? Service: ? Author Type: ? Type: Progress Notes Filed: 02/19/2025 02:55 Note Text: Epic Scheduled Downtime: 02/19/2025 1:00:00 AM to 02/19/2025 2:37:00 AM [facility] 02-18-2025 Note HNO ID: [id number] Author: GAYLE ZAYAS MD Service: Infectious Disease Author Type: Physician [...] as source based on patient with chronic Hudson catheter due to paraplegia and neurogenic bladder and because of bacteremia suspected pyelonephritis. Also with stents but they may not have been the initial source. Discussed with urology and stents can be removed when patient stable enough. Apparently he has had them in quite a long time. #-Presence of chronic Hudson catheter due to urinary retention/neurogenic bladder issues-this [...] and UTI. Spinal cord injury residing at [facility], presented to [facility] 02/16/2025 for unresponsiveness when normally alert [...] Also history of ESBL Klebsiella UTI. Chronic Hudson catheter. In April 2024 bilateral hydronephrosis with [...] consulted due to neurogenic bladder with chronic Hudson, also for the urosepsis with bilateral ureteral [...] that although she was not at the longterm she was called and told he was mentally out of it and ill so they brought him in. She did state that his urine was pretty cloudy. He has a chronic Hudson catheter due to paraplegia and neurogenic bladder [...] inje (more content not included)... [facility] 02-18-2025 Note HNO ID: [id number] Author: ANMOL HERBERT MD Service: Urology Author [...] Value 02/18/2025 69 11/25/2021 275 Urinalysis: Specific [place], Ur Date Value Ref Range Status 02/16/2025 [...] male with chronic bilateral stents placed at [facility] in MAY 2024 PLAN: - No acute intervention - Given pt improvement on current regimen, no plans for surgery this admission - Pt can follow up with [facility] Urology - Appreciate ICU care Jose Nesbitt MD PGY1 Urology 12:22 PM 02/18/25 [facility] 02-18-2025 Note HNO ID: [id number] Author: JON MCDONALD MD Service: Critical Care Author Type: Physician Type: Progress Notes Filed: 02/18/2025 13:06 Note Text: [facility] STAFF PHYSICIAN NOTE OF PERSONAL INVOLVEMENT [...] 5. Urinary bladder is nondistended with indwelling Hudson catheter and a couple small foci of [...] with extensive medical hx who presented from longterm for AMS. In the ED, was obtunded and intubated. Found to be hypotensive and tachycardic, eventually requiring vasopressors. Workup revealed MK, UTI, and multiple other findings. CT with multiple findings including coiling of stents and bibasilar lung opacities. MICU consulted septic shock. #Septic shock #Polymicrobial bacteremia #UTI in setting of neurogenic bladder/chronic hudson #Acute hypoxemic respiratory failure s/p extubation 02/17 [...] Dispositio (more content not included)... [facility] 02-18-2025 Note HNO ID: [id number] Author: JON MCDONALD MD Service: Critical Care Author Type: Physician Type: Progress Notes Filed: 02/18/2025 15:04 Note Text: MICU PROGRESS NOTE PATIENT NAME: Anmol Langley REASON FOR ADMISSION:Septic shock LOS: 1 Subjective HPI Anmol Langley is a 64 year old male with PMH L2-L3 epidural abscess 01/14/22 C/b spinal stenosis, MRSA bacteremia, paraplegia, and chronic hudson Hx ESBL klebsiella pneumoniae UTI S/p L2-L3 laminectomy and posterior fusion T2DM, last HbA1C 6.5 - 01/23/2022 Bilateral hydronephrosis s/p ureteral stent placement April 2024 Chronic sacral osteomyelitis Chronic normocytic anemia Chronic hematuria MICU was consulted for septic shock, altered mental status, and failure to protect airway requiring intubation. The patient initially presented to the [facility] ED on February 16, 2025 after being found unresponsive at his shelter facility, last known well 1700 today INTERVAL [...] this admission. Pt can follow up with [facility] Urology Infectious disease: Discontinue vancomycin and continue [...] -- 1.2 CMP: Recent Labs 02/18/25 0420 02/17/255 02/16/251921 GLUC 177* 225* 131* NA 135* [...] Value Units Date/Time Respiratory Culture and Stain [[id number]] (Abnormal) Collected: 02/17/25 1010 Order Status: Completed Specimen: Sputum Updated: 02/17/25 1328 Gram Stain Few Mixed oral gosia Rare Polymorphonuclear leukocytes Few Epithelial cells Blood Culture [[id number]] (Abnormal) Collected: 02/16/251927 Order Status: Completed Specimen: Blood Updated: 02/17/25 1049 Gram Stain Gram positive cocci in pairs and chains Gram negative bacilli Blood Culture [[id number]] (Abnormal) Collected: 02/16/251921 Order Status: Completed Specimen: [...] c (more content not included)... [facility] 02-18-2025 Note HNO ID: [id number] Author: NOTE, INTERFACE, ? Service: ? Author Type: ? Type: Progress Notes Filed: 02/18/2025 03:47 Note Text: Epic Scheduled Downtime: 02/18/2025 1:00:00 AM to 02/18/2025 3:39:00 AM [facility] 02-17-2025 Note HNO ID: [id number] Author: ELLIOT GOMEZ RN Service: Care Management Author Type: Registered Nurse Type: Care Mgt Initial Assessment Filed: 02/17/2025 13:50 Note Text: CARE MANAGEMENT: ASSESSMENT AND DISCHARGE PLAN SERVICE DATE: February 17, 2025 SERVICE TIME: 1343 PCP: No primary care provider on file. Primary Contact: Extended Emergency Contact Information Primary Emergency Contact: SUMI LANGLEY Mobile Relation: Daughter Secondary Emergency Contact: GailRonald Address: [address] [place] [address] Mobile Relation: Brother Admission Status: Inpatient Insurance Provider: [employer]IA GARBER MEDICARE Discharge Planning requested by: Per Department Practice Potential Transition Plans Residential Facility/Intermediate Care Facility Advance Directives Current Advance Directive: None Restaurant Attendant Attempted to Assist with AD Completion: Yes Action: Education Provided Current Living Arrangements and Support Lives with: Other person(s) Type of Residence: Extended Care Facility Does the patient have to climb stairs at home?: No Care Facility Name: [facility] Support: Children, Other: See Comment ECF staff How do you manage to accomplish the following: Dependent: Ambulation, Bathe/Shower, Meals/Meal Prep, Dress, Going to the bathroom, Medication Management, Transportation to appointments/community Current Services/Equipment Current Post-Acute Service(s): DME Current DME Type: Wheelchair-electric, [place] [employer]ift Discharge Planning Patient Goal(s): General wellness Banks of Choice Explained: Banks of Choice Given: No Reason Not Given: No placements necessary Are you interested in bedside delivery of your medications? No Discharge Planning Participant(s): Patient, Children Patient/Family Comments: Caregiver Assessment: Caregiver is ready, willing and able to meet the patient's needs as recommended by the inter-professional team: Yes Name of Caregiver: [facility] Transport at Discharge: Transportation Arrangements: Ambulance Transportation Agency and Phone #:: [facility] ( [facility] ) [phone] / [phone] Needs Prior to Discharge: Needs Prior to Discharge: To Be Determined, OT/PT Evaluation, Discharge Transportation Post-Acute Discharge Plan: Met with patient and daughter Sumi in room. Extubated this morning. 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 Patient is LTC and a bed hold at the facility. Plan is to return to [facility] at discharge per daughter. Recommend therapy evals when appropriate. Patient will need precert if skilled is needed on return. Patient will need cot transport at discharge. CM will continue to follow. SIGNATURE: Elliot Gomez RN PATIENT NAME: Anmol Langley DATE: February 17, 2025 TIME: 1:43 PM [facility] 02-17-2025 Note HNO ID: [id number] Author: JESSICA CLEMENT RPh Service: Pharmacy Author Type: Pharmacist Type: Plan of Care Filed: 02/21/2025 09:54 Note Text: PHARMACY MEDICATION REVIEW Patient Name: Anmol Langley : 1960 The following medications were updated within the DINING MANAGER medication list: Medications ADDED to DINING MANAGER medication list aspirin, enteric coated (ASPIRIN, ENTERIC [...] hours as needed (heartburn). Medications CHANGED on DINING MANAGER medication list Medications REMOVED from DINING MANAGER medication list alogliptin benzoate (ALOGLIPTIN ORAL) Adjust [...] E-Cancel Additional comments: Verified medication information with [facility]. Removed medications listed above from med list to match [facility] med list. Added medications listed above to med list to match [facility] med list. Required follow up actions for nursing: None The below information represents the best possible medication history: Yes Medication history completed by: Train Starter: Rosa Brice (Vending Route Driver) Source of history: [facility]Other [facility] and [facility] records Medication nonadherence identified: No barriers noted Reconciliation completed: Yes Completed by: TREV All DINING MANAGER medications addressed by TREV Patient interested in Bedside Delivery Services or using OP Pharmacy at discharge? No Preferred outpatient pharmacy: [facility] Allergies: No Known Allergies [...] thre (more content not included)... [facility] 02-17-2025 Note HNO ID: [id number] Author: JON MCDONALD MD Service: Critical Care Author Type: Physician Type: Progress Notes Filed: 02/17/2025 13:12 Note Text: [facility] STAFF PHYSICIAN NOTE OF PERSONAL INVOLVEMENT [...] 5. Urinary bladder is nondistended with indwelling Hudson catheter and a couple small foci of [...] with extensive medical hx who presented from longterm for AMS. In the ED, was obtunded [...] Status: (more content not included)... [facility] 02-17-2025 Note HNO ID: [id number] Author: JON MCDONALD MD Service: Critical Care Author Type: Physician Type: Progress Notes Filed: 02/17/2025 13:55 Note Text: MICU PROGRESS NOTE PATIENT NAME: Anmol Langley REASON FOR ADMISSION:Septic shock LOS: 0 Subjective HPI Anmol Langley is a 64 year old male with PMH L2-L3 epidural abscess 01/14/22 C/b spinal stenosis, MRSA bacteremia, paraplegia, and chronic hudson Hx ESBL klebsiella pneumoniae UTI S/p L2-L3 laminectomy and posterior fusion T2DM, last HbA1C 6.5 - 01/23/2022 Bilateral hydronephrosis s/p ureteral stent placement April 2024 Chronic sacral osteomyelitis Chronic normocytic anemia Chronic hematuria MICU was consulted for septic shock, altered mental status, and failure to protect airway requiring intubation. The patient initially presented to the [facility] ED on February 16, 2025 after being found unresponsive at his shelter facility, last known well 1700 today INTERVAL [...] ml LABORATORY: BLOOD GAS: CBC: Recent Labs 02/17/255 02/16/251921 WBC 19.64* 10.29 HB 11.9* 11.6* HCT 36.6* 34.9* PLT 93* 108* MCV 92.7 90.6 RDWCV 14.8 14.5 NEUTP -- 90.0 ABSNEUT -- 9.26* LYMPHP -- 3.0 MONOP -- 4.0 COAG: No results for input(s): "APTT", "INR" in the last 168 hours. CMP: Recent Labs 02/17/25 0225 02/16/25 1922 GLUC 225* 131* NA 132* 136 K [...] 5. Urinary bladder is nondistended with indwelling Hudson catheter and a couple small foci of [...] Ejection (more content not included)... [facility] 02-16-2025 Note HNO ID: [id number] Author: ROZ MIKE RN Service: ? Author Type: Registered Nurse Type: ED Notes Filed: 02/16/2025 19:48 Note Text: Restraints applied at this time, bilateral upper extremity softs. [facility] 01-31-2025 Instructions Rj Brooks RN - 01/31/2025 2:01 PM EDT WOUND CARE INSTRUCTIONS- Anmol Langley Wound location: sacrum & left ischium [facility] [place] -Gather supplies -Place down a clean work [...] the wound base. - Cover with 4x4 [place] SAP. - Change your dressing daily and [...] following changes to the Wound Center at [phone] or go to the Emergency Department: Fever or chills Increased drainage Green or yellow drainage Foul odor Increased pain Hardness around the wound Redness, warmth or swelling of the surrounding tissue Color change to the wound When contacting the wound center at the ([phone]): Leave a message that includes your full [...] Blood work ordered please go to any [facility] lab. - Please send patient with medication list at next appointment. - Continue aggressive nutritional support to assist wound healing - CAT Scans & MRI need to be scheduled through Central Scheduling. Call [phone].(If applicable) Milad Goodson MD/zmina/fm documented in this encounter [facility] 01-31-2025 Note HNO ID: [id number] Author: MILAD GOODSON MD Service: ? Author Type: Physician Type: Progress Notes Filed: 02/01/2025 13:02 Note Text: INFECTIOUS DISEASE WOUND CENTER CONSULT PATIENT NAME: Anmol Langley DATE OF CONSULTATION: 01/31/2025 REASON FOR CONSULTATION: [...] negative unless stat (more content not included)... [facility] 01-31-2025 History of Present illness Narrative Images from the original note were not included. INFECTIOUS DISEASE WOUND CENTER CONSULT PATIENT NAME: Anmol Langley DATE OF CONSULTATION: 01/31/2025 REASON FOR CONSULTATION: [...] in motorized wheelchair Home Care Company/Nursing Facility: [facility] Consent captured for debridement per (Provider) and good until Special Instructions (for example, patient stands at the bedside for exam/dressing): bed Anticoagulant Therapy: aspirin Living Situation (ie... Apartment, house, SENIOR CARE): [facility] Who lives with patient: facility Who will [...] BY PROVIDER: Anesthetic Used: N/A applied per manager delivery # 1 & 2 Other procedure: Specimen [...] alginate AG Covered and secured with: 4x4 [place] SAP Other: COMPRESSION: N/A DME: Prism order date __ DME: [employer] , PH: [phone] SPECIAL NEEDS: Coordination of care N/A Emotional support N/A OR set-up N/A Lithographic Proofer Apprentice N/A Incontinence needs N/A DISCHARGED in stable condition to: facility in motorized wheelchair PLAN/ORDERS: - Return to the Wound Center to see Milad Goodson MD in 6 weeks. - Blood work ordered please go to any [facility] lab. - Please send patient with medication list at next appointment. - Continue aggressive nutritional support to assist wound healing - CAT Scans & MRI need to be scheduled through Central Scheduling. Call [phone].(If applicable) EDUCATION: The patient/family was instructed how [...] to ANY of questions 5-9, [facility] Rj Brooks RN/fm documented in this encounter [facility] 01-31-2025 Note HNO ID: [id number] Author: RJ BROKOS RN Service: ? Author Type: Registered Nurse Type: Progress Notes Filed: 01/31/2025 14:59 Note Text: Nursing Documentation Pertinent Medical History: paraplegia, MRSA, osteomyelitis, UTI, DM2, neuropathy, pyelonephritis, Wound Etiology according to patient: sacrum wound has had for four years per pt Patient arrived via: self in motorized wheelchair Home Care Company/Nursing Facility: [facility] Consent captured for debridement per (Provider) [...] BY PROVIDER: Anesthetic Used: N/A applied per manager delivery # 1 AND 2 Other procedure: Specimen [...] alginate AG Covered and secured with: 4x4 [place] SAP Other: COMPRESSION: N/A DME: Prism order date __ DME: [employer] , PH: [phone] SPECIAL NEEDS: Coordination of care N/A Emotional support N/A OR set-up N/A Lithographic Proofer Apprentice N/A Incontinence needs N/A DISCHARGED in stable condition to: facility in motorized wheelchair PLAN/ORDERS: - Return to the Wound Center to see Milad Goodson MD in 6 weeks. - Blood work ordered please go to any [facility] lab. - Please send patient with medication list at next appointment. - Continue aggressive nutritional support to assist wound healing - CAT Scans AND MRI need to be scheduled through Central Scheduling. Call [phone].(If applicable) EDUCATION: The patient/family was instructed how [...] the [facility] Rj Brooks RN/juan josé [facility] 01-04-2025 History of Present illness [...] SIGNATURE: Jovany Johnston RN PATIENT NAME: Anmol Langley DATE: January 04, 2025 TIME: 8:46 AM [...] PATIENT PRESENTS WITH AN IMPLANTABLE OR ATTACHED PATTERNATOR: No ALLERGIES: Reviewed and unchanged CONTRAST ALLERGY: NO. EXAM: MRI - CONTRAST TYPE: GROUP II PERIPHERAL IV DATA: RAD RN IV RADIOLOGY DEPARTMENT: MR; Exam(s) Completed: Spine: Sacrum/Coccyx SIGNATURE: Joy Gong LIZ PATIENT NAME: Anmol Given DATE: January 04, 2025 TIME: 8:49 AM documented in this encounter [facility] 01-04-2025 Note HNO ID: [id number] Author: AMBROSIO BAUGH RT(R) Service: Radiology Author [...] PATIENT PRESENTS WITH AN IMPLANTABLE OR ATTACHED PATTERNATOR: No ALLERGIES: Reviewed and unchanged CONTRAST ALLERGY: NO. EXAM: MRI - CONTRAST TYPE: GROUP II PERIPHERAL IV DATA: RAD RN IV RADIOLOGY DEPARTMENT: MR; Exam(s) Completed: Spine: Sacrum/Coccyx SIGNATURE: Joy Gong, LIZ PATIENT NAME: Anmol Given DATE: January 04, 2025 TIME: 8:49 AM [facility] 01-04-2025 Note HNO ID: [id number] Author: JOVANY JOHNSTON RN Service: Radiology Author [...] SIGNATURE: Jovany Johnston RN PATIENT NAME: Anmol Langley DATE: January 04, 2025 TIME: 8:46 AM [facility] 11-08-2024 History of Present illness [...] Nursing Facility Time-Based Billing Justifications: Charting in [facility] Patient visit (including performing a medically appropriate exam) Obtaining history (or reviewing separately obtained history) SPINAL CORD INJURY CLINIC Visit date: 11/08/2024 PCP: No primary care provider on file. CC: Problem focused follow up of spinal cord injury and resultant complications HPI: Name: Anmol Langley Age: [age] year old Sex: male 06/13/2023 [...] for wound per pcp. Small but non-healing. Jenny Howell overseeing. Current Outpatient Medications Medication Sig [...] 50 NLI T11 AIS A ASSESSMENT Anmol Langley is a 64 year old male here [...] (around 02/05/2025) for in-person visit with [facility]. Faisal Kitchen DO 11/08/2024 documented in this encounter [facility] 10-27-2024 Telephone encounter Note Returned call unable to leave message doug was out for the day [facility] 10-27-2024 Miscellaneous Notes Returned call unable to leave message doug was out for the day Name of caller: Doug Contact phone number: [phone] Relationship to Patient: [facility] Provider: Dr. Gillette Practice: [facility] Chief Complaint/Reason for Call: Doug [...] pain management//no showed on 08.04.24// Doug from [facility] appt//medicare medicaid Office Name: [facility] Medication Refills need, if any: n/a Medication Name: n/a documented in this encounter [facility] 10-26-2024 Telephone encounter Note Name of caller: Doug Contact phone number: [phone] Relationship to Patient: [facility] Provider: Dr. Gillette Practice: [facility] Chief Complaint/Reason for Call: Doug states she missed a call from the office to schedule the patient and would like a return call. Please review. Best time of day caller can be reached: any Patient advised that office/PCP has 24-48 business hours to return their call: Yes [employer] [facility] 10-26-2024 Telephone encounter Note Called and left message to call to reschedule appointment [facility] 10-25-2024 Telephone encounter Note Name of Caller: Doug Contact Reason for Appointment: Please call to r/s cx appt for 10.26.24 due to weather conditions. Follow up for pain management//no showed on 08.04.24// Doug from [facility] made appt//medicare medicaid Office Name: [facility] Medication Refills need, if any: n/a Medication Name: n/a [facility] 09-30-2024 Instructions Faisal Kitchen DO - 09/30/2024 1:28 PM EST Completed UDS. Inserted 18Fr 10cc hudson Call to schedule appt with Urology Dr Jorge Grimm MD (Surgeon) [address] [facility] [address] [place] [address] Urology [place] [id number] Check renal CT scan given recurrent blood [...] burning on urination, call the office at [phone] Thursday through Thursday 8:00 AM to 4:30 PM. For emergencies, go the Emergency Room. If you do not already have a follow up appointment scheduled with your physician, call the office at [phone] to schedule one. documented in this encounter [facility] 09-30-2024 History of Present illness Narrative Images from the original note were not included. SPINAL CORD INJURY [facility] Note CC: [facility] 09/30/2024 Name: Anmol Langley Age: [age] year old Sex: male 06/13/2023 SCI Data Injury Date 10/05/2021 Injury Etiology Non-traumatic NLI T11 AIS A PCP: No primary care provider on file. HPI: Anmol Langley is 64 year old male here today for urodynamics testing to help guide diagnosis/management and ensure safe bladder. BLADDER MANAGEMENT Management: Hudson catheter Issues: Ureteral stent for hydronephrosis in [...] awareness is altered. Unknown about filling (chronic hudson). Sensation with cath trauma and scrotum but not with penis or cath change. Bladder emptying method: hudson Frequency of volitional bladder emptying: NA Frequency [...] then PVR was assessed by straight catheterization. 7-South African urodynamic catheter was placed in the bladder [...] oral post procedural antibiotic was prescribed to [facility] pharmacy. Overall the procedure was well [...] Void Residual (mL): 325 mL Storage phase (52001 or 24570/38514) Rate of Fluid infusion, First sensation (Normal [...] was observed only with valsalva Voiding Phase (83451/41423) Maximum flow, Pdet at maximum flow, Volume voided: See scanned report in Media EMG Anal/urinary muscle study patch ([id number] -[id number]) EMG inconclusive (connection was lost during study). Detrusor Function During Voiding: Acontractile detrusor Urethral Function During Voiding: Unknown Mechanism of voiding: cath The stream was small leak. Post Void Residual (mL): 325 mL 304/26 Impression: Anmol Langley is a 64 year old male with [...] PRESSURE STUDIES; INTRA-ABDOMINAL VOIDING PRESSURE INSERT CATHETER (HUDSON) SIMPLE [54795] COMPLEX CYSTOMETROGRAM CT RENAL STONE nitrofurantoin monohydrate macrocrystal (Macrobid) 100 MG capsule Patient Instructions Completed UDS. Inserted 18Fr 10cc hudson Call to schedule appt with Urology Dr Jorge Grimm MD (Surgeon) [address] [place] [address] scan given recurrent blood [...] burning on urination, call the office at [phone] Thursday through Thursday 8:00 AM to 4:30 PM. For emergencies, go the Emergency Room. If you do not already have a follow up appointment scheduled with your physician, call the office at [phone] to schedule one. Catheters: Continue indwelling catheterization Fluid intake: maintaining hydration Medications: contrinue flomax for stent/stones Other: See above Return to Clinic: Follow up in about 4 weeks (around 10/28/2024) for video visit (teleEyefreight). Faisal Kitchen DO 09/30/2024 documented in this encounter [facility] 08-22-2024 History of Present illness Narrative Rheumatology New visit Note Referring Physician: No primary care provider on file. Reason for referral: New patient, establish relationship History of present illness: Anmol Langley is a 64 year old male with [...] Resource Strain: Low Risk (04/24/2023) Received from [facility] Overall Financial Resource Strain (CARDIA) Difficulty of Paying Living Expenses: Not hard at all Food Insecurity: No Food Insecurity (05/18/2024) Received from [facility] Hunger Vital Sign Worried About Running Out of Food in the Last Year: Never true Ran Out of Food in the Last Year: Never true Transportation Needs: No Transportation Needs (05/18/2024) [facility] PR[facility] - Transportation Lack of Transportation (Medical): No Lack of Transportation (Non-Medical): No Intimate Partner Violence: Not At Risk (05/18/2024) [facility] from [facility] Humiliation, Afraid, Rape, and Kick questionnaire Fear [...] and history of adult fracture. ASSESSMENT/PLAN: Anmol Langley is a 64 year old male with [...] Forteo or Tymlos. He is amenable. [facility] [place] to get labs ordered Will check BMP, Vit D, PTH, SPEP Plan for Forteo if labs ok. Follow up 3 months or sooner PRN Lizbet He DO documented in this encounter [facility] 08-12-2024 Telephone encounter Note Spoke with [facility] where pt resides and given the date and time of STUDENT SERVICES REP video visit with Dr. He at 8:20 am on 08/22/24. This information will be relayed to pt. [facility] 08-12-2024 Miscellaneous Notes Spoke with [facility] where pt resides and given the date and time of STUDENT SERVICES REP video visit with Dr. He at 8:20 am on 08/22/24. This information will be relayed to pt. documented in this encounter [facility] 08-01-2024 Note Addended by: FAISAL KITCHEN on: 08/01/2024 02:57 PM Modules accepted: Level of Service [facility] 08-01-2024 Note Addended by: FAISAL KITCHEN on: 08/01/2024 02:57 PM Modules accepted: Level of Service [facility] 08-01-2024 Miscellaneous Notes Addended by: FAISAL KITCHEN on: 08/01/2024 02:57 PM Modules accepted: Level of Service documented in this encounter [facility] 08-01-2024 Instructions Howard Dhaliwal MD - 08/01/2024 9:30 AM EDT -Continue PT/OT -Please follow your appoitment with pain team and rheumatology -You are scheduled for bladder study on 09/30/24 -continue scheduled bowel care daily documented in this encounter [facility] 07-31-2024 History of Present illness Narrative [...] injury and resultant complications HPI: Name: Anmol Langley Age: [age] year old Sex: male 06[birth year]24 SCI Data Injury Date 10/05/2021 Injury Etiology Non-traumatic NLI T11 AIS A Patient is a 63 yo with h/o paraplegia following spinal surgery [place]rs [place] . In 2019, pt had his first back surgery performed by [facility] which was an interbody fusion. 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 At that point, the hospital took the hardware out and did not replace it with the goal of treating the infection. 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 After the infection was treated, [facility] extended his fusion, decompressed the back, and replaced all hardware. At that time he lost all motor and sensation to his lower extremities. He was independent uptill december 2021 till his last spine surgery two year ago.Since 2021 he is in longterm and he changes 5 longterm so far. Currently SNF in [facility]. Last seen on 06/13/24 in clinic and recommendations was: -Continue PT/OT -Bowel care: schedule bowel care once/day (either after breakfast or dinner) - using suppository and manual stimulation over commode chair will be more helpful than over bed . - Continue skin care - Follow [facility] service consult( we requested today ) [...] healing- being followed with wound care at longterm. 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 Dependent for transfer. Able to manual wheelchair independently [facility] [employer] SYSTEMS BOWEL MANAGEMENT Management: Bowel care schedule once day every morning - on the bed Issues: BLADDER MANAGEMENT Management: Hudson catheter Issues: Urethral stent for hydronephrosis. Multiple [...] HEENT: hearing normal Neck: Symmetrical ASSESSMENT Anmol Langley is a 63 year old male here [...] note above represents our combined efforts. Faisal Kitchen DO documented in this encounter [facility] 07-27-[address] Grady murphy to Rheumatology. Spoke with patient's brother today who referred me to call [facility], where patient resides, to see about arranging transportation for patient to a Rheumatology appt (not scheduled yet). I spoke with a healthcare worker at [facility] and let her know we can also schedule a video visit with Dr. Hare. She will call me back after discussing with patient. [facility] 07-27-2024 Telephone encounter Note Referral from Dr. Howe to Rheumatology. Spoke with patient's brother today who referred me to call [facility], where patient resides, to see about arranging transportation for patient to a Rheumatology appt (not scheduled yet). I spoke with a healthcare worker at [facility] and let her know we can also schedule a video visit with Dr. Hare. She will call me back after discussing with patient. [facility] 07-27-2024 Miscellaneous Notes Referral from Dr. Howe to Rheumatology. Spoke with patient's brother today who referred me to call [facility], where patient resides, to see about arranging transportation for patient to a Rheumatology appt (not scheduled yet). I spoke with a healthcare worker at [facility] and let her know we can also schedule a video visit with Dr. Hare. She will call me back after discussing with patient. documented in this encounter [facility] 07-13-[address] Howe referral to Rheumatology for Osteoporosis. Spoke with brother who transports pt to and from [facility] since pt resides in extended care facility. Brother is available on Fridays to transport pt to appts. Will call him back with options. [facility] 07-13-2024 Telephone encounter Note This is a Dr Howe referral to Rheumatology for Osteoporosis. Spoke with brother who transports pt to and from appts since pt resides in extended care facility. Brother is available on Fridays to transport pt to appts. Will call him back with options. [facility] 07-13-2024 Miscellaneous Notes This is a Dr Howe referral to Rheumatology for Osteoporosis. Spoke with brother who transports pt to and from appts since pt resides in extended care facility. Brother is available on Fridays to transport pt to appts. Will call him back with options. documented in this encounter [facility] 06-16-2024 Note Addended by: FAISAL KITCHEN on: 06/16/2024 09:13 PM Modules accepted: Level of Service [facility] 06-16-2024 Miscellaneous Notes Addended by: FAISAL KITCHEN on: 06/16/2024 09:13 PM Modules accepted: Level of Service documented in this encounter [facility] 06-16-2024 Telephone encounter Note Scheduled appointment [facility] 06-16-2024 Miscellaneous Notes Scheduled appointment Doug is calling in again wanting to rescheduled they can be reached at the office anytime before 3pm. Please advise and thank you LM for Doug to call the office to discuss the pt Name of caller: Doug Contact phone number: [phone] Relationship to Patient: [facility] Provider: [facility] Practice: pain management Chief Complaint/Reason for Call: doug is calling in wanting to speak to the main office. Please advise and thank you Best time of day caller can be reached: any Patient advised that office/PCP has 24-48 business hours to return their call: Yes documented in this encounter [facility] 06-16-2024 Telephone encounter Note Doug is calling in again wanting to rescheduled they can be reached at the office anytime before 3pm. Please advise and thank you [facility] 06-15-2024 Telephone encounter Note LM for Doug to call the office to discuss the pt [facility] 06-15-2024 Telephone encounter Note Name of caller: Doug Contact phone number: [phone] Relationship to Patient: [facility] Provider: [facility] Practice: pain management Chief Complaint/Reason for Call: doug is calling in wanting to speak to the main office. Please advise and thank you Best time of day caller can be reached: any Patient advised that office/PCP has 24-48 business hours to return their call: Yes [facility] 06-14-2024 Telephone encounter Note RTC to pt, left voice mail. Vladimir Asher [place] [facility] [phone] [facility] 06-14-2024 Miscellaneous Notes RTC to pt, left voice mail. Vladimir Asher [facility] [phone] documented in this encounter [facility] 06-13-2024 Instructions Howard Dhaliwal MD - 06/13/2024 12:29 PM EDT -Continue PT/OT -Bowel care: schedule bowel care once/day (either after breakfast or dinner) - using suppository and manual stimulation over commode chair will be more helpful than over bed . - Continue skin care - Follow [facility] service consult( we requested today ) for benefits eligibility - Bladder: We ordered today Urodynamic study for your bladder evaluation (to see your bladder status post spinal cord injury) documented in this encounter [facility] 06-13-2024 Instructions Howard Dhaliwal MD - 06/13/2024 12:29 PM EDT -Continue PT/OT -Bowel care: schedule bowel care once/day (either after breakfast or dinner) - using suppository and manual stimulation over commode chair will be more helpful than over bed . - Continue skin care - Follow [facility] service consult( we requested today ) for benefits eligibility - Bladder: We ordered today Urodynamic study for your bladder evaluation (to see your bladder status post spinal cord injury) documented in this encounter [facility] 06-13-2024 History of Present illness Narrative Patient was identified by name and date of . Evelio Grey documented in this encounter [facility] 06-13-2024 History of Present illness Narrative Patient was identified by name and date of . Evelio Grey Images from the original note were not included. SPINAL CORD INJURY CLINIC Visit date: 06/13/2024 PCP: No primary care provider on file. CC: Comprehensive follow up of spinal cord injury and resultant complications HPI: Name: Anmol Langley Age: [age] year old Sex: male 06/13/2024 SCI Data Injury Date 10/05/2021 Injury Etiology Non-traumatic NLI T11 AIS A Patient is a 63 yo with h/o paraplegia following spinal surgery [place]rs [place] . In 2019, pt had his first back surgery performed by [facility] which was an interbody fusion. 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 At that point, the hospital took the hardware out and did not replace it with the goal of treating the infection. 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 After the infection was treated, [facility] extended his fusion, decompressed the back, and replaced all hardware. At that time he lost all motor and sensation to his lower extremities. He was independent uptill december 2021 till his last spine surgery two year ago Patient was accompanied by brother . The patient gave permission to discuss their medical information, including PHI, in their presence. Since 2021 he is in longterm and he changes 5 longterm so far. Currently SNF in [facility]. 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 Dependent for transfer. Able to manual wheelchair independently SCI REVIEW OF SYSTEMS BOWEL MANAGEMENT Management: No specific management, in diaper Issues: BLADDER MANAGEMENT Management: Hudson catheter Issues: Urethral stent for hydronephrosis. Multiple [...] spasticity Reflexes NT Clonus --ve ASSESSMENT Anmol Langley is a 63 year old male here for chronic follow up of non traumatic paraplegia and resultant sequelae. 1. Paraplegia (HCC) 2. Reflex neurogenic bladder Orders & Meds Signed During This Encounter [facility] SERVICE REQUEST PM&R Urodynamics Patient Instructions -Continue PT/OT -Bowel care: schedule bowel care once/day (either after breakfast or dinner) - using suppository and manual stimulation over commode chair will be more helpful than over bed . - Continue skin care - Follow [facility] service consult( we requested today ) [...] note above represents our combined efforts. Faisal Kitchen DO documented in this encounter [facility] 05-22-2024 Note Formatting of this n ote might be different from the original. Called [facility] [employer] dispatch, new ETA is around 1900. [facility] 05-22-2024 Note Formatting of this n ote might be different from the original. Called [facility] [employer] dispatch, new ETA is around 1900. [facility] 05-22-2024 Miscellaneous Notes Called [facility] [employer] dispatch, new ETA is around 1900. CARE COORDINATION DAILY NOTE/UPDATE Discharge Plan: [facility] This TCC was tasked to follow this patient through the weekend assisting with discharge planning. Chart was reviewed. Met with patient at bedside to confirm if he would like to return to [facility]. Patient agreeable to return. Messaged attending and infectious disease to see if patient is able to discharge today. Discharge order placed. Scheduled discharge transportation in [employer], leaf size picker time confirmed for 05/22 at 1600. Bedside nurse notified of transport and will update patient and family of plan Facility notified of transportation time and discharge documents including After Visit Summary, MAR, LABS, and Vitals [facility]. Problem: Knowledge Deficit Goal: Patient/family/caregiver [...] determined. Current discharge plan is return to [facility]. Will return skilled only if needed, otherwise he can return under his medicaid benefit per careport message. TCC to continue to follow. Return Referral [facility] to [facility] per TCC request. Await review and response regarding ability to accept. TCC notified. Care Managment Initial Assessment Date: 05/19/2024 Patient Name: Anmol Langley : 1960 Patient Information Source of Information: Patient Cognition/Language: WFL - Within Functional Limits Permission given to speak with patient auto claim representative/caregiver as indicated: Yes Confirmation of Payer with patient/family: Yes Payer Name: Medicare A/B; [place]: No Confirmation of Primary Care Physician: Confirmed PCP Name: Walter Nieves MD at facility Seen in last 2 years?: Yes Primary Caregiver: Other (Comment) (facility staff) If assistance needed, confirmed caregiver ready, willing and able to care for patient at discharge: No (n/a) Confirmed with: Living Arrangements Facility: [facility] Facility Name: [facility] Plan to Return: Yes Lives with: [...] ECF Discharge Planning Actions: Continue to follow, Residential Facility referral indicated Banks of choice: Banks of choice discussed (choice list not indicated; [...] ureteral stent placement 2/2 bilateral hydronephrosis. +chronic hudson. +IV abx. Urine and blood cultures pending ID consulted. Patient is a resident at [facility] xfew years. Patient confirmed plan for return. BONE WORKER tasked to place return referral. Anticipate discharge in 2-3 days pending medical stability. Patient will need transport. TCC to continue to follow. Virginia Peter RN The patient is Moderately Stable [...] instructions Outcome: Progressing documented in this encounter [facility] 05-22-2024 Nurse Note Transport arranged for 1600. Belongings packed and paperwork finished. Carlos Monetlongo update: 45 minutes. Elly Cormier RN [facility] 05-22-2024 Nurse Note Transport arranged for 1600. Belongings packed and paperwork finished. Carlos Montelongo update: 45 minutes. Elly Cormier RN Hudson catheter leaking since last night. Dr. Mahajan paged via secure chat. Catheter to be replaced. Patient informed me that they use a 18 salvadorean hudson at the longterm. A 16 salvadorean was previously in. Urology cart was ordered, and a 18 salvadorean hudson was placed with 500 mL output. Larger balloon, filled with 25 mL. No leaking. Will continue to monitor. Elly Cormier RN documented in this encounter [facility] 05-22-2024 Nurse Note Hudson catheter leaking since last night. Dr. Mahajan paged via secure chat. Catheter to be replaced. Patient informed me that they use a 18 salvadorean hudson at the longterm. A 16 salvadorean was previously in. Urology cart was ordered, and a 18 salvadorean hudson was placed with 500 mL output. Larger balloon, filled with 25 mL. No leaking. Will continue to monitor. Elly Cormier RN [facility] 05-22-2024 Note Discharge Summary Anmol Franco Given : 1960 ADMIT DATE: 05/17/2024 DISCHARGE DATE: 05/22/2024 PRIMARY CARE PHYSICIAN: Walter Alatorre VISIT STATUS: Admission CODE STATUS: Full Code [...] acute distress Denies any new acute complaints Hudson was leaking, discussed with RN who will be replacing Hudson Case and plan discussed with patient and [...] Continuous Continuous M (more content not included)... [facility] 05-22-2024 Hospital course Narrative Images from the original note were not included. Discharge Summary Anmol Franco Given : 1960 ADMIT DATE: 05/17/2024 DISCHARGE DATE: 05/22/2024 PRIMARY CARE PHYSICIAN: Walter Alatorre VISIT STATUS: Admission CODE STATUS: Full Code [...] acute distress Denies any new acute complaints Hudson was leaking, discussed with RN who will be replacing Hudson Case and plan discussed with patient and [...] factors, the following mgmt was pursued: - hudson replaced - urine culture grew Proteus mirabilis [...] Complexity: follow up within 7-14 calendar days (44526) [] Severe Complexity: follow up within 7 calendar days (66482) FOLLOW UP TESTING, PENDING RESULTS OR REFERRALS [...] 05/22/2024, 1:52 PM documented in this encounter [facility] 05-22-2024 Note Hospitalist Progress Note 05/22/2024 Subjective: Admit Date: 05/17/2024 PCP: Walter Alatorre Room#: W6-625/W6-625 A Brief Hospital course: Anmol [...] acute distress Denies any new acute complaints Hudson was leaking, discussed with RN who will be replacing Hudson Case and plan discussed with patient and [...] (each=1, panels c (more content not included)... [facility] 05-22-2024 History of Present illness Narrative Hospitalist Progress Note 05/22/2024 Subjective: Admit Date: 05/17/2024 PCP: Walter Alatorre Room#: W6-559/W6-989 A Brief Hospital course: Anmol is a [...] acute distress Denies any new acute complaints Hudson was leaking, discussed with RN who will be replacing Hudson Case and plan discussed with patient and [...] factors, the following mgmt was pursued: - hudson replaced - urine culture grew Proteus mirabilis [...] Emergency Contact Information Primary Emergency Contact: Ronald Langley Mobile Relation: Sibling Secondary Emergency Contact: SUMI LANGLEY Mobile Relation: Daughter Adamaeli Montalvo MD [place] Division of Hospitalist Medicine Inpatient Medical Services/[facility] Images from the original note were not included. PHYSICAL THERAPY [facility] Initial Evaluation Name/MRN: Anmol Langley ([id number]) Evaluation Date: 05/21/2024 Date of : 1960 Admission Date: 05/17/2024 8:25 PM Age: 63 y.o. [facility] Discharge Recommendation: ECF without PT (Patient states he may be interested to going to a different ECF in [place]) Equipment Needed: No Assessment IMPRESSION: Patient is [...] gait and mobility Other reduced mobility Paraplegia ([facility]) Sciatica Spinal stenosis of lumbar region with neurogenic claudication Type 2 diabetes mellitus without complication ([facility]) ([facility]) Urinary calculus, unspecified UTI (urinary tract infection) Past Surgical History: Past Surgical History: Procedure Laterality Date ANKLE SURGERY Right He has a titanium plate to the right ankle KNEE SURGERY Left ACL KNEE SURGERY Left removal of screw LAMINECTOMY Left 10/24/2020 LEFT BILATERAL L2-3-4-5 DECOMPRESSION performed by Opal Ayala MD at [facility] OR ORTHOPEDIC SURGERY Right removal of hardware ankle US PLACE URETAL STENT PERC PRE-EXIST TRACT S&I (HISTORICAL) Bilateral 04/14/2024 Dr. Grimm/Bashir Admission Diagnosis: Patient Active Problem List Diagnosis Date Noted Hypertension 01/06/2017 Hyperglycemia 01/06/2017 Hip sprain 01/06/2017 Anxiety 01/06/2017 Positive blood cultures 05/17/2024 Calculus of ureter 05/06/2024 Bladder calculus 05/05/2024 Pressure injury of coccygeal region, stage 3 ([facility]) 04/20/2024 Septic shock ([facility]) 04/14/2024 Lumbar stenosis with neurogenic claudication 10/24/2020 Spinal stenosis of lumbar region with neurogenic claudication 10/24/2020 Nicotine use disorder 10/15/2020 Unspecified osteoarthritis, unspecified site 10/15/2020 Pilonidal cyst without abscess 10/15/2020 Diabetes mellitus without complication ([facility]) ([facility]) 10/15/2020 Abnormal finding on EKG 10/15/2020 Other intervertebral disc displacement, lumbar region 10/15/2020 Lumbar radiculopathy 10/04/2020 Herniated nucleus pulposus, L5-S1, left 07/07/2017 Medical Precautions: No active isolations Proper PPE donned/doffed in accordance with facility standards. Fall Risk: Marroquin Fall Risk Score: 35 (Medium Risk) Precautions/Restrictions: Lines/Drains/Airways: hudson Fall Precautions Skin care precautions, CAUTI precautions, +alarms Family/Caregiver Present: none Overall Cognitive Status: Grossly WFL, hyperverbal and tangential throughout session Overall Orientation Status: Oriented x4 Hearing: normal Social/Functional History Patient admitted from SNF. ([facility] Assistive Equipment: wheelchair - electric, hospital bed, [...] Raw Score (No Stairs) : 9 JH-HLM -HLM Score: Sat at edge of bed Plan [...] of Care supervision is transferred to a [facility] Physical Therapist. Goals and/or treatment plan was established in collaboration with patient/family/other representatives. Hospitalist Progress Note 05/21/2024 Subjective: Admit Date: 05/17/2024 PCP: Walter Alatorre Room#: W6-625/W6-625 A Brief Hospital course: Anmol [...] positive for gram-positive cocci in clusters. Dr. Moeyr of infectious disease was consulted at that [...] 240 ml LABS: CBC: Recent Labs 05/19/2440605/20/24 0606 05/21/24 0336 WBC 5.4 5.5 5.8 [...] 3 4 8 LIVER PROFILE: Recent Labs 05/19/2440605/20/2460505/21/24 0336 AST 29 23 24 ALT 19 [...] factors, the following mgmt was pursued: - hudson replaced - urine culture grew Proteus mirabilis [...] Emergency Contact Information Primary Emergency Contact: Ronald Langley Mobile Relation: Sibling Secondary Emergency Contact: SUMI LANGLEY Mobile Relation: Daughter Bradbam Katia Mahajan MD Division of Hospitalist Medicine Inpatient Medical Services/[facility] Images from the original note were not included. [facility] - Infectious Diseases BEADER TENDER Progress Note Subjective: Following for CoNS positive BC (one set from [facility]); asymptomatic ESBL proteus bacteriuria. Notes reviewed. Afebrile. No new complaints. Denies any flank pain or abdominal pain. Hudson maintained with yellow-urine. Urine culture + ESBL [...] CVA tenderness or guarding. Genitourinary: Comments: + hudson catheter with yellow urine Musculoskeletal: Cervical back: [...] 2/2 NGTD 05/16- blood cx- 1/1 CoNS ([facility]) 05/05- tissue from bladder- C parapsilosis, K aerogenes, pseudomonas, skin gosia 04/16- blood cx- 2/2 negative 04/15- MRSA by PCR- MSSA 04/15- urine cx- 50-90k providencia stuartii 04/14- blood cx- 1/2 P mirablis, 2 P stuartii, M morganii Lines: PIV Radiography/Echo/Other: Reviewed- no new Antimicrobials,Start/End Dates: Pip/tazo: 05/17-05/18 Cefepime: 05/18-05/20 Impression: CoNS positive blood cultures one set ([facility])- contaminant Asymptomatic ESBL Proteus bacteriuria in setting of hudson catheter s/p changed in ED Recent cystoscopy, B laser lithotripsy and ureteral stent exchange (05/06) Tissue cx + pseudomonas, klebsiella, and c parapsilosis hydronephrosis and obstruction due to bilateral ureteral calculus s/p cystoscopy, bilateral stent change and hudson cath insertion on (04/14/24). Recent h/o proteus, providencia and morganella bacteremia d/t complicated UTI; treated H/o MRSA BSI c/b L2-L3 epidural abscess and R psoas abscess (01/2022); treated by [facility] ID Paraplegia w neurogenic bladder s/p chronic hudson d/t #5 Plan: Pt received 4 days of cefepime and urine culture grew ESBL proteus likely representing colonization in setting of chronic hudson catheter. He remains asymptomatic without systemic off of effective therapy. Recommend stopping cefepime and observing off. CoNS + blood cx from [facility] is a contaminant. Repeat blood cx negative Plan d/w Dr. Melchor. Please page/call over the weekend if questions or concerns. Rosalinda Fox CNP [facility] - Infectious Diseases 10:11 AM 05/20/2024 Based on diagnoses and management, combination of acute and chronic problems, exacerbations and/or acuity, this visit should be considered to be of moderate complexity. Hospitalist Progress Note 05/20/2024 Subjective: Admit Date: 05/17/2024 PCP: Walter Alatorre Room#: W6-704/W6-315 A Brief Hospital course: Anmol is a [...] -2064 ml LABS: CBC: Recent Labs 05/18/24 0620 05/19/24 0407 05/20/24 0606 WBC 7.7 5.4 5.5 [...] factors, the following mgmt was pursued: - hudson replaced - urine culture grew Proteus mirabilis [...] Emergency Contact Information Primary Emergency Contact: Ronald Langley Mobile Relation: Sibling Secondary Emergency Contact: SUMI LANGLEY Mobile Relation: Daughter Adamaeli Christiandon MD [place] Division of Hospitalist Medicine Inpatient Medical Services/[facility] Nutrition Assessment Type and Reason for Visit: [...] of note, pt was recently admitted to [facility] 04/14-04/20/2024 with proteus, providencia, and morganella bacteremia d/t complicated UTI, underwent cystoscopy, bilateral stent change and hudson catheter insertion (04/14) for B hydronephrosis and [...] WBC and many bacteria in setting of hudson catheter, hudson was exchanged in ED, repeat blood cultures [...] On: Kcal/kg Weight Used for Energy Requirements: [place] Weight for Energy Calculation (kg): 89 kg Total Energy Requirements (kcals/day): 7348-2011 kcal/day (25-30 kcal/kg) Weight Used for Protein Requirements: [place] Weight in Kg Used for Protein Requirements: [...] mostly appear stated, 180-200#, noted 04/19- 212#) [place] Body Weight (lbs) (Calculated): 196 lbs [place] Body Weight (Kg) (Calculated): 89 kg BMI [...] Chelita Dominguez RD Contact: Secure chat or *[phone] Images from the original note were not included. [facility] - Infectious Diseases BEADER TENDER Progress Note Subjective: Following for CoNS positive [...] CVA tenderness or guarding. Genitourinary: Comments: + hudson catheter with yellow urine and sediment Musculoskeletal: [...] 2/2 NGTD 05/16- blood cx- / CoNS ([facility]) 05/05- tissue from bladder- C parapsilosis, K aerogenes, pseudomonas, skin gosia 04/16- blood cx- 2/2 negative 04/15- MRSA by PCR- MSSA 04/15- urine cx- 50-90k providencia stuartii 04/14- blood cx- 1/2 P mirablis, 2 P stuartii, M morganii Lines: PIV Radiography/Echo/Other: Reviewed- no new Antimicrobials,Start/End Dates: Pip/tazo: 05/17-05/18 Cefepime: 05/18-present Impression: CoNS positive blood cultures one set ([facility])- contaminant Proteus UTI in setting of hudson catheter s/p changed in ED Recent cystoscopy, B laser lithotripsy and ureteral stent exchange (05/06) Tissue cx + pseudomonas, klebsiella, and c parapsilosis hydronephrosis and obstruction due to bilateral ureteral calculus s/p cystoscopy, bilateral stent change and hudson cath insertion on (04/14/24). Recent h/o proteus, providencia and morganella bacteremia d/t complicated UTI; treated H/o MRSA BSI c/b L2-L3 epidural abscess and R psoas abscess (01/2022); treated by [facility] ID Paraplegia w neurogenic bladder s/p chronic hudson d/t #5 Plan: Continue cefepime to also [...] will continue to follow; plan d/w Dr. Melchor. Rosalinda Fox CNP [facility] - Infectious Diseases 3:08 PM 05/19/2024 Based on diagnoses and management, combination of acute and chronic problems, exacerbations and/or acuity, this visit should be considered to be of moderate complexity. Hospitalist Progress Note 05/19/2024 Subjective: Admit Date: 05/17/2024 PCP: AMBROSIO MONROY DO Room#: W6-721/W6-005 A Brief Hospital course: Anmol is a [...] claudication Type 2 diabetes mellitus without complication ([facility]/HCC) (HCC) Urinary calculus, unspecified UTI (urinary tract [...] factors, the following mgmt was pursued: - hudson replaced - urine culture grew Proteus mirabilis [...] Emergency Contact Information Primary Emergency Contact: Ronald Langley Mobile Relation: Sibling Secondary Emergency Contact: SUMI LANGLEY Mobile Relation: Daughter Bradbam Katia Mahajan MD Division of Hospitalist Medicine Inpatient Medical Services/[facility] Hospitalist Progress Note 05/18/2024 Subjective: Admit Date: [...] factors, the following mgmt was pursued: - hudson replaced - urine culture - blood cultures [...] Emergency Contact Information Primary Emergency Contact: Ronald Langley Mobile Relation: Sibling Secondary Emergency Contact: SUMI LANGLEY Mobile Relation: Daughter Bradbam Katia Mahajan MD [facility] documented in this encounter [facility] 05-22-2024 Note Formatting of this n ote might be different from the original. CARE COORDINATION DAILY NOTE/UPDATE Discharge Plan: [facility] This TCC was tasked to follow this patient through the weekend assisting with discharge planning. Chart was reviewed. Met with patient at bedside to confirm if he would like to return to [facility]. Patient agreeable to return. Messaged attending and infectious disease to see if patient is able to discharge today. Discharge order placed. Scheduled discharge transportation in [employer], leaf size picker time confirmed for 05/22 at 1600. Bedside nurse notified of transport and will update patient and family of plan Facility notified of transportation time and discharge documents including After Visit Summary, MAR, LABS, and Vitals were uploaded into careport for review. [facility] 05-22-2024 Note Formatting of this n ote might be different from the original. CARE COORDINATION DAILY NOTE/UPDATE Discharge Plan: [facility] This TCC was tasked to follow this patient through the weekend assisting with discharge planning. Chart was reviewed. Met with patient at bedside to confirm if he would like to return to [facility]. Patient agreeable to return. Messaged attending and infectious disease to see if patient is able to discharge today. Discharge order placed. Scheduled discharge transportation in [employer], leaf size picker time confirmed for 05/22 at 1600. Bedside nurse notified of transport and will update patient and family of plan Facility notified of transportation time and discharge documents including After Visit Summary, MAR, LABS, and Vitals [facility] [facility] 05-22-2024 Plan of care note [...] Assess Nutritional Intake Outcome: Adequate for Discharge [facility] 05-22-2024 Note Problem: Safety Goal: Patient will be injury free during hospitalization Outcome: Progressing Problem: Safety Goal: I will remain free of falls Outcome: Progressing [facility] 05-22-2024 Plan of care note Problem: Safety Goal: Patient will be injury free during hospitalization Outcome: Progressing Problem: Safety Goal: I will remain free of falls Outcome: Progressing [facility] 05-21-2024 Note PHYSICAL THERAPY [facility] Initial Evaluation Name/MRN: Anmol Langley ([id number]) Evaluation Date: 05/21/2024 Date of : 1960 Admission Date: 05/17/2024 8:25 PM Age: 63 y.o. Room[facility]Bed: [facility] A Discharge Recommendation: ECF without PT (Patient states he may be interested to going to a different ECF in [place]) Equipment Needed: No Assessment IMPRESSION: Patient is [...] LEFT BILATERAL L2-3-4-5 DECOMPRESSION performed by Opal Ayala MD at [facility] OR ORTHOPEDIC SURGERY Right removal of hardware ankle US PLACE URETAL STENT PERC PRE-EXIST TRACT S&I (HISTORICAL) Bilateral 04/14/2024 Dr. Grimm/Bashir Admission Diagnosis: Patient Active Problem List Diagnosis Date Noted Hypertension 01/06/2017 Hyperglycemia 01/06/2017 Hip sprain 01/06/2017 Anxiety 01/06/2017 Positive blood cultures 05/17/2024 Calculus of ureter 05/06/2024 Bladder calculus 05/05/2024 Pressure injury of coccygeal region, stage 3 ([facility]) 04/20/2024 Septic shock ([facility]) 04/14/2024 Lumbar stenosis with neurogenic claudication 10/24/2020 Spinal stenosis of lumbar region with neurogenic claudication 10/24/2020 Nicotine use disorder 10/15/2020 Unspecified osteoarthritis, unspecified site 10/15/2020 Pilonidal cyst without abscess 10/15/2020 Diabetes mellitus without complication ([facility]) ([facility]) 10/15/2020 Abnormal finding on EKG 10/15/2020 Other intervertebral disc displacement, lumbar region 10/15/2020 Lumbar radiculopathy 10/04/2020 Herniated nucleus pulposus, L5-S1, left 07/07/2017 Medical Precautions: No active isolations Proper PPE donned/doffed in accordance with facility standards. Fall Risk: Marroquin Fall Risk Score: 35 (Medium Risk) Precautions/Restrictions: Lines/Drains/Airways: hudson Fall Precautions Skin care precautions, CAUTI precautions, +alarms Family/Caregiver Present: none Overall Cognitive Status: Grossly WFL, hyperverbal and tangential throughout session Overall Orientation Status: Oriented x4 Hearing: normal Social/Functional History [facility] Assistive Equipment: wheelchair - electric, hospital bed, [...] Rolling to left: (more content not included)... [facility] 05-21-2024 Note Hospitalist Progress Note 05/21/2024 Subjective: Admit Date: 05/17/2024 PCP: Walter Alatorre Room#: W6-625/W6-485 A Brief Hospital course: Anmol is a [...] Net 240 ml LABS: CBC: Recent Labs 05/19/2440605/20/2460505/21/24 0336 WBC 5.4 5.5 5.8 RBC 3.96* 4.08* 4.04* HGB 12.0* 12.2* 12.4* HCT 35.8* 37.0* 37.5* MCV 90.4 90.7 92.8 RDW 14.9 15.1* 15.0 PLT 212 197 192 BMP: Recent Labs 05/19/2440605/20/2460505/21/24 033 NA 134* 134* 136 K 3.4* 4.0 3.9 CL 110* 109* 109* CO2 21* 21* 18* BUN 11 10 11 CREATININE 0.44* 0.50* 0.46* GLUCOSE 212* 207* 157* CALCIUM 8.4 8.5 8.5 ANIONGAP 3 4 8 LIVER PROFILE: Recent Labs 05/19/2440605/20/2460505/21/24 0336 AST 29 23 24 ALT 19 [...] and/or studies (ea (more content not included)... [facility] 05-21-2024 Plan of care note Problem: [...] Interventions Goal: Assess Nutritional Intake Outcome: Progressing [facility] 05-20-2024 Plan of care note Problem: Knowledge Deficit Goal: Patient/family/caregiver demonstrates understanding of disease process, treatment plan, medications, and discharge instructions Outcome: Progressing Problem: Potential for Compromised Skin Integrity Goal: Skin Integrity is Maintained or Improved Outcome: Progressing Goal: Nutritional status is improving Outcome: Progressing [facility] 05-20-2024 Note Formatting of this n ote might be different from the original. Chart reviewed. ID following for CoNS postive BC and proteus UTI. Repeat BC pending. +iv cefepime, final course not yet determined. Current discharge plan is return to [facility]. Will return skilled only if needed, otherwise he can [facility] TCC to continue to follow. [facility] 05-20-2024 Note Formatting of this n ote might be different from the original. Chart reviewed. ID following for CoNS postive BC and proteus UTI. Repeat BC pending. +iv cefepime, final course not yet determined. Current discharge plan is return to [facility]. Will return skilled only if needed, otherwise he can return under his medicaid benefit per careport message. TCC to continue to follow. [facility] 05-20-2024 Note [facility] - Infectious Diseases BEADER TENDER Progress Note Subjective: Following for CoNS positive BC (one set from [facility]); asymptomatic ESBL proteus bacteriuria. Notes reviewed. Afebrile. No new complaints. Denies any flank pain or abdominal pain. Hudson maintained with yellow-urine. Urine culture + ESBL [...] CVA tenderness or guarding. Genitourinary: Comments: + hudson catheter with yellow urine Musculoskeletal: Cervical back: [...] NGTD 05/16- blood cx- 1/1 CoNS ([facility]) 05/05- tissue from bladder- C parapsilosis, K [...] Asymptomatic ESBL Proteus bacteriuria in setting of hudson catheter s/p changed in ED Recent cystoscopy, B laser lithotripsy and ureteral stent exchange (05/06) Tissue cx + pseudomonas, klebsiella, and c parapsilosis hydronephrosis and obstruction due to bilateral ureteral calculus s/p cystoscopy, bilateral stent change and hudson cath insertion on (04/14/24). Recent h/o proteus, providencia and morganella bacteremia d/t complicated UTI; treated H/o MRSA BSI c/b L2-L3 epidural abscess and R psoas abscess (01/2022); treated by [facility] ID Paraplegia w neurogenic bladder s/p chronic hudson d/t #5 Plan: Pt received 4 days of cefepime and urine culture grew ESBL proteus likely representing colonization in setting of chronic hudson catheter. He remains asymptomatic without systemic off of effective therapy. Recommend stopping cefepime and observing off. CoNS + blood cx from OSH is a contaminant. Repeat blood cx negative Plan d/w Dr. Melchor. Please page/call over the weekend if questions or concerns. Rosalinda Fox CNP [facility] - Infectious Diseases 10:11 AM 05/20/2024 Based on diagnoses and management, combination of acute and chronic problems, exacerbations and/or acuity, this visit should be considered to be of moderate complexity. [facility] 05-20-2024 Note Hospitalist Progress Note 05/20/2024 Subjective: Admit Date: 05/17/2024 PCP: Walter Alatorre Room#: W6-625/W6-990 A Brief Hospital course: Anmol is a [...] as 1). ( (more content not included)... [facility] 05-20-2024 Hospital Discharge instructions Elly Cormier RN - 05/20/2024 7:34 AM EDT Images from the original note were not included. Continuity of Care Form Patient Name: Anmol Langley : 1960 Admit date: 05/17/2024 Discharge date: 05/22/2024 Code Status Order: Full Code Advance Directives: N Admitting Physician: Heydi Concepcion MD PCP: Walter Alatorre Discharging Nurse: Elly Banks RN Discharging Hospital Unit/Room#: W6-625/W6-625 A Discharging Unit Emergency Contact: Extended Emergency Contact Information Primary Emergency Contact: Ronald Langley Mobile Relation: Sibling Secondary Emergency Contact: GAILSUMI Mobile Relation: Daughter Past Surgical History: Past Surgical History: Procedure Laterality Date ANKLE SURGERY Right He has a titanium plate to the right ankle KNEE SURGERY Left ACL KNEE SURGERY Left removal of screw LAMINECTOMY Left 10/24/2020 LEFT BILATERAL L2-3-4-5 DECOMPRESSION performed by Opal Ayala MD at [facility] OR ORTHOPEDIC SURGERY Right removal of hardware ankle US PLACE URETAL STENT PERC PRE-EXIST TRACT S&I (HISTORICAL) Bilateral 04/14/2024 Dr. Grimm/Bashir Immunization History: There is no immunization history on file for this patient. Active Problems: Medical Problems Problem List * (Principal) Positive blood cultures Hypertension Hyperglycemia Hip sprain Anxiety Septic shock ([facility]) Pressure injury of coccygeal region, stage 3 ([facility]) Bladder calculus Calculus of ureter Nicotine use disorder Unspecified osteoarthritis, unspecified site Pilonidal cyst without abscess Diabetes mellitus without complication ([facility]) (HCC) Lumbar radiculopathy Abnormal finding on EKG [...] Total assistance Toileting Total assistance Feeding Independent Investment Strategist Total assistance Med Delivery yes Wound Care Documentation and Therapy: Wound/Incision 04/14/24 Pressure Injury Sacrum (Active) Site Assessment Red 05/18/241843 [place]-Wound Assessment Red 05/18/241843 Wound Length (cm) 1.5 cm 05/18/241843 Wound Width (cm) 1 cm 05/18/241843 Wound Surface Area (cm^2) 1.5 cm^2 05/18/24 184 Odor None 05/18/24 184 Drainage Amount None 05/18/24 184 Treatments Site care 05/18/24 184 Primary Dressing Foam 05/18/242044 Dressing Status Clean, [...] Date: 05/17/2024 Discharging to Facility/ Agency Name: [facility] Address: [address] [place] [address] Publicity Consultant/Armored Vehicle Officer signature: ICIAN SECTION Name: Anmol Langley Prognosis: fair Condition at Discharge: stable Rehab Potential (if transferring to Rehab): fair Recommended Labs or Other Treatments After Discharge: cbc,cmp The individual is being admitted to a nursing facility directly from an [facility] or a unit of a [facility] that is not operated by or licensed by [facility] under section 5119.14 or 5160-3-15.1 5 The individual requires the level of services provided by a nursing facility for the condition for which he or she was treated in the hospital and, Physician Certification: I certify the above information and transfer of Anmol Langley is necessary for the continuing treatment of the diagnosis listed and that he requires shelter facility for less than 30 days. Update Admission H&P: No change in H&P PHYSICIAN SIGNATURE: documented in this encounter [facility] 05-19-2024 Note Formatting of this n ote might be different from the original. Return Referral placed to [facility] via [facility] per TCC request. Await review and response regarding ability to accept. TCC notified. [facility] 05-19-2024 Note Formatting of this n ote might be different from the original. Return Referral placed to [facility] via [facility] per TCC request. Await review and response regarding ability to accept. TCC notified. T [facility] 05-19-2024 Note Return Referral plac ed to [facility] via [facility] per TCC request. Await review and response regarding ability to accept. TCC notified. [facility] 05-19-2024 Note Formatting of this n ote might be different from the original. Care Managment Initial Assessment Date: 05/19/2024 Patient Name: Anmol Langley : 1960 Patient Information Source of Information: Patient Cognition/Language: WFL - Within Functional Limits Permission given to speak with patient auto claim representative/caregiver as indicated: Yes Confirmation of Payer with patient/family: Yes Payer Name: Medicare A/B; [place] Medicaid : No Confirmation of Primary Care Physician: Confirmed PCP Name: Walter Nieves MD at facility Seen in last 2 years?: Yes Primary Caregiver: Other (Comment) (facility staff) If assistance needed, confirmed caregiver ready, willing and able to care for patient at discharge: No (n/a) Confirmed with: Living Arrangements Facility: [facility] Facility Name: [facility] Plan to Return: Yes Lives with: Alone, Other (Comment) (at [facility]) Support Systems: Children, Family members, Comments (Other) [...] ECF Discharge Planning Actions: Continue to follow, Residential Facility referral indicated Banks of choice: Banks of choice discussed (choice list not indicated; [...] ureteral stent placement 2/2 bilateral hydronephrosis. +chronic hudson. +IV abx. Urine and blood cultures pending ID consulted. [facility] Patient confirmed plan for return. BONE WORKER tasked to place return referral. Anticipate discharge in 2-3 days pending medical stability. Patient will need transport. TCC to continue to follow. Virginia Peter RN [facility] 05-19-2024 Note Formatting of this n ote might be different from the original. Care Managment Initial Assessment Date: 05/19/2024 Patient Name: Anmol Langley : 1960 Patient Information Source of Information: Patient Cognition/Language: WFL - Within Functional Limits Permission given to speak with patient auto claim representative/caregiver as indicated: Yes Confirmation of Payer with patient/family: Yes Payer Name: Medicare A/B; [place] Medicaid [place]: No Confirmation of Primary Care Physician: Confirmed PCP Name: Walter Nieves MD at facility Seen in last 2 years?: Yes Primary Caregiver: Other (Comment) (facility staff) If assistance needed, confirmed caregiver ready, willing and able to care for patient at discharge: No (n/a) Confirmed with: Living Arrangements Facility: [facility] Facility Name: [facility] Plan to Return: Yes Lives with: Alone, Other (Comment) (at [facility]) Support Systems: Children, Family members, Comments (Other) [...] ECF Discharge Planning Actions: Continue to follow, Residential Facility referral indicated Banks of choice: Banks of choice discussed (choice list not indicated; [...] ureteral stent placement 2/2 bilateral hydronephrosis. +chronic hudson. +IV abx. Urine and blood cultures pending ID consulted. Patient is a resident at [facility] xfew years. Patient confirmed plan for return. BONE WORKER tasked to place return referral. Anticipate discharge in 2-3 days pending medical stability. Patient will need transport. TCC to continue to follow. Virginia Peter RN [facility] 05-19-2024 Note [facility] - Infectious Diseases BEADER TENDER Progress Note Subjective: Following for CoNS positive [...] CVA tenderness or guarding. Genitourinary: Comments: + hudson catheter with yellow urine and sediment Musculoskeletal: [...] normal. Behavior: Behavior normal. Labs: Recent Labs 05/17/24205705/18/2461905/19/24 0407 NA 136 136 134* K 4.4 4.5 3.4* CL 109* 108* 110* CO2 20* 22 21* BUN 12 13 11 CREATININE 0.68 0.64* 0.44* GLUCOSE 172* 143* 212* CALCIUM 8.7 8.6 8.4 PROT -- -- 6.3 BILITOT -- -- 0.6 ALKPHOS -- -- 155* AST -- -- 29 ALT -- -- 19 Recent Labs 05/17/24205705/18/2461905/19/24 0407 WBC 3.5* 7.7 5.4 HGB 19.6* 12.5* 12.0* HCT 60.0* 38.7* 35.8* PLT 105* 222 212 LYMPHOPCT 26.9 28.0 -- MONOPCT 6.8 9.6 -- BASOPCT 0.8 0.8 -- NEUTROABS 2.0 4.3 -- Micro: 05/18- urine cx >100k proteus mirabilis 05/17- blood cx- 2/2 NGTD 05/16- blood cx- 1/1 CoNS ([facility]) 05/05- tissue from bladder- C parapsilosis, K [...] ([facility])- contaminant Proteus UTI in setting of hudson catheter s/p changed in ED Recent cystoscopy, B laser lithotripsy and ureteral stent exchange (05/06) Tissue cx + pseudomonas, klebsiella, and c parapsilosis hydronephrosis and obstruction due to bilateral ureteral calculus s/p cystoscopy, bilateral stent change and hudson cath insertion on (04/14/24). Recent h/o proteus, providencia and morganella bacteremia d/t complicated UTI; treated H/o MRSA BSI c/b L2-L3 epidural abscess and R psoas abscess (01/2022); treated by [facility] ID Paraplegia w neurogenic bladder s/p chronic hudson d/t #5 Plan: Continue cefepime to also [...] will continue to follow; plan d/w Dr. Melchor. Rosalinda Fox, [facility] - Infectious Diseases 3:08 PM 05/19/2024 Based on diagnoses and management, combination of acute and chronic problems, exacerbations and/or acuity, this visit should be considered to be of moderate complexity. [facility] 05-19-2024 Note Hospitalist Progress Note 05/19/2024 Subjective: Admit Date: 05/17/2024 PCP: AMBROSIO MONROY DO Room#: W6-968/W6-353 A Brief Hospital course: Anmol is a [...] Net -1015.67 ml LABS: CBC: Recent Labs 05/17/24205705/18/2420 05/19/24 0407 WBC 3.5* 7.7 5.4 RBC [...] or more new (more content not included)... [facility] 05-18-2024 Plan of care note The patient is Moderately Stable - Low risk of patient condition declining or worsening The patient's goals for the shift include Pain control. The clinical goals for the shift include Patient to remain free of injury for the entirety of the shift. [facility] 05-18-2024 Note Problem: Knowledge D eficit Goal: Patient/family/caregiver demonstrates understanding of disease process, treatment plan, medications, and discharge instructions Outcome: Progressing [facility] 05-18-2024 Plan of care note Problem: Knowledge Deficit Goal: Patient/family/caregiver demonstrates understanding of disease process, treatment plan, medications, and discharge instructions Outcome: Progressing [facility] 05-18-2024 Emergency department Note Pt refusing BG check stating "I'm already eating." MD savage. Ella Zavala RN 05/18/24 180 [facility] 05-18-2024 Emergency department Note Pt refusing BG check stating "I'm already eating." MD savage. Ella Zavala RN 05/18/24 4854 Pt refusing BG check at this time. MD aware. Ella Zavala RN 05/18/24 2644 Pt refusing continuous IV fluids. MD janette Zavala, RN 05/18/24 1051 Pt moved onto hospital [...] RN cleaned pt. Carmen Crews RN 05/18/24 4994 Pt transport has been requested Carmen Crews RN 05/18/24 0969 Pt is asleep, w/ unlabored breathing Carmen Crews RN 05/18/24 0155 Carmen rCews RN 05/18/24 0156 EMERGENCY DEPARTMENT ENCOUNTER Pt Name: Anmol Langley Birthdate 1960 Date of evaluation: 05/17/2024 ED Provider: Terri Kitchen PA-C CHIEF COMPLAINT Chief Complaint Patient presents [...] the entirety of this encounter. HPI Anmol Langley is a 63 y.o. male who presents [...] LEFT BILATERAL L2-3-4-5 DECOMPRESSION performed by Opal Ayala MD at [facility] OR ORTHOPEDIC SURGERY Right removal of hardware ankle US PLACE URETAL STENT PERC PRE-EXIST TRACT S&I (HISTORICAL) Bilateral 04/14/2024 Dr. Grimm/Bashir CURRENT MEDICATIONS Previous Medications ACETAMINOPHEN (TYLENOL) 325 [...] Resource Strain: Low Risk (04/24/2023) Received from [facility], [facility] Overall Financial Resource Strain ([facility]) Difficulty of Paying Living Expenses: Not hard [...] Culture. Procedure Abnormality Status --------- ------ Complete Urinalysis[[id number]] Abnormal Final result Please view results for these tests on the individual orders. COMPLETE URINALYSIS WITH REFLEX TO CULTURE Narrative: The following orders were created for panel order Urinalysis complete with reflex to Culture. Procedure Abnormality Status --------- ------ Complete Urinalysis[[id number]] Please view results for these tests on [...] note for further details. In brief, Anmol Langley is a 63 y.o. male who presented [...] Urine is grossly infected although has indwelling Hudson catheter. Nursing staff was notified to replace Hudson catheter and get a repeat urine sample. Chronic conditions contributing to patients presentation include paraplegia, type 2 diabetes mellitus, hyperlipidemia, chronic indwelling Hudson catheter, hypertension. Social determinants to care: None [...] contact the dictating provider for clarification.) Terri Kitchen PA-C (electronically signed) Emergency Medicine Provider Terri Kitchen PA-C 05/17/24 0277 Emergency Department Encounter [facility] EMERGENCY DEPT Patient: Anmol Langley : 1960 Date of Evaluation: 05/17/2024 ED Supervising Physician: Rodney Guerrero DO I personally evaluated Anmol Langley and made/approved the management plan and take responsibility for the patient management. This will serve as my Supervisory note and shared attestation. I did perform a substantive portion of the visit including all aspects of the Medical Decision Making. I wore appropriate PPE for the entirety of this encounter. In brief, Anmol Langley is a 63 y.o. that presents to [...] for clarification.) Rodney Guerrero DO Acute Care [facility] Rodney Guerrero DO 05/18/24 0435 documented in this encounter [facility] 05-18-2024 Emergency department Note Pt refusing BG check at this time. aware. Ella Zavala RN 05/18/24 1237 [facility] 05-18-2024 Emergency department Note Pt refusing continuous IV fluids. MD janette Zavala RN 05/18/24 1051 [facility] 05-18-2024 Emergency department Note Pt moved onto hospital bed, denies any needs or complaints at this time. Ella Zavala RN 05/18/24 1026 [facility] 05-18-2024 Emergency department Note Pharmacy contacted regarding missing oxycodone. Ella Zavala RN 05/18/24 1059 [facility] 05-18-2024 Consult note Associated Order (s): IP CONSULT TO INFECTIOUS DISEASES Images from the original note were not included. [facility] - Infectious Diseases BEADER TENDER inpatient Consult Note Reason for Consult: Complicated UTI History of Present Illness: Anmol Langley is a 63 y/o male with PMHx [...] daptomycin with suppressive minocycline. Pt presented to [facility] ED on 05/17/2024 for evaluation of positive blood cultures. Pt was recently admitted to [facility] 04/14-04/20/2024 with proteus, providencia, and morganella bacteremia d/t complicated UTI. He underwent cystoscopy, bilateral stent change and hudson catheter insertion (04/14) for B hydronephrosis and [...] wbc and many bacteria in setting of hudson catheter. Hudson was exchanged in ED. Repeat blood cultures [...] LEFT BILATERAL L2-3-4-5 DECOMPRESSION performed by Opal Ayala MD at [facility] OR ORTHOPEDIC SURGERY Right removal of hardware ankle US PLACE URETAL STENT PERC PRE-EXIST TRACT S&I (HISTORICAL) Bilateral 04/14/2024 Dr. Grimm/Bashir Current Medications: Current Facility-Administered Medications Medication Dose [...] Resource Strain: Low Risk (04/24/2023) Received from [facility], [facility] Overall Financial Resource Strain (CARDIA) Difficulty [...] -- -- 70 18 -- -- -- 05/17/242033 123/84 36.4 C (97.5 F) Oral 78 [...] CVA tenderness or guarding. Genitourinary: Comments: + hudson catheter with yellow urine and sediment Musculoskeletal: [...] blood cx- 1/ GPC in clusters ([facility]) 05/05- tissue from bladder- C parapsilosis, K aerogenes, pseudomonas, skin gosia 04/16- blood cx- 2/2 negative 04/15- MRSA by PCR- MSSA 04/15- urine cx- 50-90k providencia stuartii 04/14- blood cx- 1/2 P mirablis, 11/06 P stuartii, M morganii Lines: PIV Radiography/Echo/Other: Reviewed- no new Antimicrobials,Start/End Dates: Pip/tazo: 05/17-present Impression: Positive blood cultures with GPC in one set UTI in setting of hudson catheter s/p changed in ED Recent cystoscopy, B laser lithotripsy and ureteral stent exchange (05/06) Tissue cx + pseudomonas, klebsiella, and c parapsilosis hydronephrosis and obstruction due to bilateral ureteral calculus s/p cystoscopy, bilateral stent change and hudson cath insertion on (04/14/24). Recent h/o proteus, providencia and morganella bacteremia d/t complicated UTI; treated H/o MRSA BSI c/b L2-L3 epidural abscess and R psoas abscess (01/2022); treated by [facility] ID Paraplegia w neurogenic bladder s/p chronic hudson d/t #5 Plan: Stop pip/tazo. Start cefepime to cover tissue cultures from 05/06 Called micro lab at [place]--> blood cx + CoNS (only one set drawn). Hold off on vancomycin for now and follow-up repeat blood cx. If negative, likely CoNS is a contaminant. ID service will continue to follow; plan d/w Dr. Melchor. Rosalinda Fox [facility] - Infectious Diseases 12:28 PM 05/18/2024 Total time 75 minutes on this day of encounter includes counseling, coordinating plan of care, record and documentation review before and after visit including documentation and time not explicitly included on EMR time stamp for accounting for open encounter. [facility] 05-18-2024 Consult note Associated Order (s): IP CONSULT TO INFECTIOUS DISEASES Images from the original note were not included. [facility] - Infectious Diseases BEADER TENDER inpatient Consult Note Reason for Consult: Complicated UTI History of Present Illness: Anmol Langley is a 63 y/o male with PMHx [...] daptomycin with suppressive minocycline. Pt presented to [facility] ED on 05/17/2024 for evaluation of positive blood cultures. Pt was recently admitted to [facility] 04/14-04/20/2024 with proteus, providencia, and morganella bacteremia d/t complicated UTI. He underwent cystoscopy, bilateral stent change and hudson catheter insertion (04/14) for B hydronephrosis and [...] wbc and many bacteria in setting of hudson catheter. Hudson was exchanged in ED. Repeat blood cultures [...] LEFT BILATERAL L2-3-4-5 DECOMPRESSION performed by Opal Ayala MD at [facility] OR ORTHOPEDIC SURGERY Right removal of hardware ankle US PLACE URETAL STENT PERC PRE-EXIST TRACT S&I (HISTORICAL) Bilateral 04/14/2024 Dr. Grimm/Bashir Current Medications: Current Facility-Administered Medications Medication Dose [...] Resource Strain: Low Risk (04/24/2023) Received from [facility], [facility] Overall Financial Resource Strain (CARDIA) Difficulty [...] CVA tenderness or guarding. Genitourinary: Comments: + hudson catheter with yellow urine and sediment Musculoskeletal: [...] 05/16- blood cx- 1/1 [facility]PC in clusters ([facility]) 05/05- tissue from bladder- C parapsilosis, K aerogenes, pseudomonas, skin gosia 04/16- blood cx- 2/2 negative 04/15- MRSA by PCR- MSSA 04/15- urine cx- 50-90k providencia stuartii 04/14- blood cx- 12 P mirablis, 11/06 P stuartii, M morganii Lines: PIV Radiography/Echo/Other: Reviewed- no new Antimicrobials,Start/End Dates: Pip/tazo: 05/17-present Impression: Positive blood cultures with GPC in one set UTI in setting of hudson catheter s/p changed in ED Recent cystoscopy, B laser lithotripsy and ureteral stent exchange (05/06) Tissue cx + pseudomonas, klebsiella, and c parapsilosis hydronephrosis and obstruction due to bilateral ureteral calculus s/p cystoscopy, bilateral stent change and hudson cath insertion on (04/14/24). Recent h/o proteus, providencia and morganella bacteremia d/t complicated UTI; treated H/o MRSA BSI c/b L2-L3 epidural abscess and R psoas abscess (01/2022); treated by [facility] ID Paraplegia w neurogenic bladder s/p chronic hudson d/t #5 Plan: Stop pip/tazo. Start cefepime to cover tissue cultures from 05/06 Called micro lab at [place]--> blood cx + CoNS (only one set drawn). Hold off on vancomycin for now and follow-up repeat blood cx. If negative, likely CoNS is a contaminant. ID service will continue to follow; plan d/w Dr. Melchor. Rosalinda Fox, SHARIFA [facility] - Infectious Diseases 12:28 PM 05/18/2024 Total time 75 minutes on this day of encounter includes counseling, coordinating plan of care, record and documentation review before and after visit including documentation and time not explicitly included on EMR time stamp for accounting for open encounter. documented in this encounter [facility] 05-18-2024 Note Hospitalist Progress Note [...] unstable/uncontrolled chronic problems/diagnoses (more content not included)... [facility] 05-18-2024 Emergency department Note Pt refused BG check/meds at this time stating "I just want some sleep." Hospital bed ordered for pt. Meds deferred at this time. Ella Zavala RN 05/18/24 0822 [facility] 05-18-2024 Emergency department Note Pt had a bowel movement, this RN & another RN cleaned pt. Carmen Crews RN 05/18/24 2584 [facility] 05-18-2024 Emergency department Note Pt transport has been requested Carmen Crews RN 05/18/24 0733 [facility] 05-18-2024 Emergency department Note Pt is asleep, w/ unlabored breathing Carmen Crews RN 05/18/24 0155 Carmen Crews RN 05/18/24 0156 [facility] 05-17-2024 History and physical note [...] LEFT BILATERAL L2-3-4-5 DECOMPRESSION performed by Opal Ayala MD at [facility] OR ORTHOPEDIC SURGERY Right removal of hardware ankle US PLACE URETAL STENT PERC PRE-EXIST TRACT S&I (HISTORICAL) Bilateral 04/14/2024 Dr. Grimm/Bashir Social History: Social History Socioeconomic History Marital [...] Resource Strain: Low Risk (04/24/2023) Received from [facility], [facility] Overall Financial Resource Strain (CARDIA) Difficulty [...] S2+, no m/r/g Abdomen: soft, nontender, BS+ SHINGLE TRIMMER: Awake and alert Ext: pulse 2+ DATA: [...] bilateral ureteral stent placement on 04/20/24 - hudson replaced - urine culture - blood cultures [...] Emergency Contact Information Primary Emergency Contact: Ronald Langley Mobile Relation: Sibling Secondary Emergency Contact: SUMI LANGLEY Mobile Relation: Daughter [employer]VANC[employer] PLANNING Anmol Langley : 1960 Primary Care Physician: AMBROSIO MONROY DO The patient and/or family/surrogate voluntarily agreed to participate in ACP services. Patient s cognitive capacity: yes Code Status: [x] [FULL CODE - Continue all advanced life support: CPR,intubation,invasive procedures] [_] [DNR-CCA - DO NOT do CPR, intubation] [_] [DNR-BROACHING MACHINE REPAIRER - Comfort care only] [_] DNR form [...] Heydi Concepcion MD Division of Hospitalist Medicine [facility] [employer] Work Phone: 05-17-2024 History and physical note [...] LEFT BILATERAL L2-3-4-5 DECOMPRESSION performed by Opal Ayala MD at [facility] OR ORTHOPEDIC SURGERY Right removal of hardware ankle US PLACE URETAL STENT PERC PRE-EXIST TRACT S&I (HISTORICAL) Bilateral 04/14/2024 Dr. Grimm/Bashir Social History: Social History Socioeconomic History Marital [...] Resource Strain: Low Risk (04/24/2023) Received from [facility], [facility] Overall Financial Resource Strain (CARDIA) Difficulty [...] S2+, no m/r/g Abdomen: soft, nontender, BS+ SHINGLE TRIMMER: Awake and alert Ext: pulse 2+ DATA: [...] bilateral ureteral stent placement on 04/20/24 - hudson replaced - urine culture - blood cultures [...] Emergency Contact Information Primary Emergency Contact: Ronald Langley Mobile Relation: Sibling Secondary Emergency Contact: SUMI LANGLEY Mobile Relation: Daughter ADVANCED CARE PLANNING Anmol Franco Given : 1960 Primary Care Physician: AMBROSIO MONROY DO The patient and/or family/surrogate voluntarily agreed to participate in ACP services. Patient s cognitive capacity: yes Code Status: [x] [FULL CODE - Continue all advanced life support: CPR,intubation,invasive procedures] [_] [DNR-CCA - DO NOT do CPR, intubation] [_] [DNR-BROACHING MACHINE REPAIRER - Comfort care only] [_] DNR form [...] Heydi Concepcion MD Division of Hospitalist Medicine [facility] documented in this encounter [facility] 05-17-2024 Note Attending History an [...] LEFT BILATERAL L2-3-4-5 DECOMPRESSION performed by Opal Ayala MD at [facility] OR ORTHOPEDIC SURGERY Right removal of hardware ankle US PLACE URETAL STENT PERC PRE-EXIST TRACT S&I (HISTORICAL) Bilateral 04/14/2024 Dr. Grimm/Bashir Social History: Social History Socioeconomic History Marital [...] Resource Strain: Low Risk (04/24/2023) Received from [facility], [facility] Overall Financial Resource Strain (CARDIA) Difficulty [...] mg by mo (more content not included)... [facility] 05-17-2024 Physician Emergency department Note EMERGENCY DEPARTMENT ENCOUNTER Pt Name: Anmol Langley Birthdate 1960 Date of evaluation: 05/17/2024 ED Provider: Terri Kitchen PA-C CHIEF COMPLAINT Chief Complaint Patient presents [...] the entirety of this encounter. HPI Anmol Langley is a 63 y.o. male who presents [...] LEFT BILATERAL L2-3-4-5 DECOMPRESSION performed by Opal Ayala MD at [facility] OR ORTHOPEDIC SURGERY Right removal of hardware ankle US PLACE URETAL STENT PERC PRE-EXIST TRACT S&I (HISTORICAL) Bilateral 04/14/2024 Dr. Grimm/Bashir CURRENT MEDICATIONS Previous Medications ACETAMINOPHEN (TYLENOL) 325 [...] Resource Strain: Low Risk (04/24/2023) Received from [facility], [facility] Overall Financial Resource Strain (CARDI) Difficulty [...] Culture. Procedure Abnormality Status --------- ------ Complete Urinalysis[[id number]] Abnormal Final result Please view results for these tests on the individual orders. COMPLETE URINALYSIS WITH REFLEX TO CULTURE Narrative: The following orders were created for panel order Urinalysis complete with reflex to Culture. Procedure Abnormality Status --------- ------ Complete Urinalysis[[id number]] Please view results for these tests on [...] note for further details. In brief, Anmol Langley is a 63 y.o. male who presented [...] Urine is grossly infected although has indwelling Hudson catheter. Nursing staff was notified to replace Hudson catheter and get a repeat urine sample. Chronic conditions contributing to patients presentation include paraplegia, type 2 diabetes mellitus, hyperlipidemia, chronic indwelling Hudson catheter, hypertension. Social determinants to care: None [...] contact the dictating provider for clarification.) Terri Kitchen PA-C (electronically signed) Emergency Medicine Provider Terri Kitchen PA-C 05/17/24 1322 [facility] 05-17-2024 Physician Emergency department Note Emergency Department Encounter [facility] EMERGENCY DEPT Patient: Anmol Langley : 1960 Date of Evaluation: 05/17/2024 ED Supervising Physician: Rodney Guerrero DO I personally evaluated Anmol Langley and made/approved the management plan and take responsibility for the patient management. This will serve as my Supervisory note and shared attestation. I did perform a substantive portion of the visit including all aspects of the Medical Decision Making. I wore appropriate PPE for the entirety of this encounter. In brief, Anmol Langley is a 63 y.o. 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 HIPAA: Verbal permission granted from patient to discuss case, including protected health information, in front of family / friends in room at the time of the evaluation. Anmol Langley is a very pleasant 63 year old male here as new patient for a second opinion of MRI results. In 2019, pt had his first back surgery performed by [facility] which was an interbody fusion. 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 At that point, the hospital took the hardware out and did not replace it with the goal of treating the infection. 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 After the infection was treated, [facility] extended his fusion, decompressed the back, and replaced all hardware. At that time he lost all motor and sensation to his lower extremities. He is now in a motorized chair. He gets some hip flexion by using his abdominal muscles. He has a full catheter and no sensation per pt. Recently, he was seen by Dr. Martinez who obtained an MRI and he would [...] Resource Strain: Low Risk (04/24/2023) Received from [facility] Overall Financial Resource Strain (CARDIA) Difficulty of Paying Living Expenses: Not hard at all Food Insecurity: No Food Insecurity (05/05/2024) Received from [employer] Hunger Vital Sign Worried About Running Out of Food in the Last Year: Never true Ran Out of Food in the Last Year: Never true Transportation Needs: No Transportation Needs (05/05/2024) Received from [employer] PRAPARE - Transportation Lack of Transportation (Medical): No Lack of Transportation (Non-Medical): No Intimate Partner Violence: Not At Risk (05/05/2024) Received from [facility] Humiliation, Afraid, Rape, and Kick questionnaire Fear [...] Rivka Garnica acting as Scribe for Dr. Vish Howe All medical record entries made by the Scribe were at my direction and personally dictated by me. I have reviewed the record and confirm that the note above accurately reflects all work, treatment, procedures, and medical decision making performed by me. Dr. Vish Howe. documented in this encounter [facility] 05-13-2024 Telephone encounter Note Call received back from nurse Packer who states blooc cultures were missed, but she will have them done on Thursday when the lab come back to the facility. [facility] 05-13-2024 Miscellaneous Notes Call received back from nurse Packer who states blooc cultures were missed, but she will have them done on Thursday when the lab come back to the facility. Called and spoke to nurse Birdie at [facility] to obtain blood culture results that were ordered to be done on 05/06/24. She did state she cannot tell if they were done, she will call their lab and have the results faxed to us. If they were not done, she will have them obtained. I did ask that she please let us know what the outcome it. documented in this encounter [facility] 05-13-2024 Telephone encounter Note Called and spoke to nurse Birdie at [facility] to obtain blood culture results that were ordered to be done on 05/06/24. She did state she cannot tell if they were done, she will call their lab and have the results faxed to us. If they were not done, she will have them obtained. I did ask that she please let us know what the outcome it. [facility] 05-10-2024 Telephone encounter Note Pt calling requesting provider to follow up regarding MRI. Pt was unable to provide telephone, address or SSN. No information was provided at this time. [facility] 05-10-2024 Miscellaneous Notes Pt calling requesting provider to follow up regarding MRI. Pt was unable to provide telephone, address or SSN. No information was provided at this time. documented in this encounter [facility] 05-06-2024 Nurse Note Patient requested discharge transportation be provided by his brother, who drives a wheelchair accessible van. Spoke with nurse at [facility] who was aware that patient was returning this evening and was agreeable to patient being transported by private vehicle. IV Dc'd. Bedside RN called report. Patient transferred via everett lift to personal wheelchair and was escorted down to main entrance where his brother picked him up in van [facility] 05-06-2024 Nurse Note Patient requested discharge transportation be provided by his brother, who drives a wheelchair accessible van. Spoke with nurse at [facility] who was aware that patient was returning this evening and was agreeable to patient being transported by private vehicle. IV Dc'd. Bedside RN called report. Patient transferred via everett lift to personal wheelchair and was escorted down to main entrance where his brother picked him up in van documented in this encounter [facility] 05-06-2024 Note Formatting of this n ote is different from the original. Images from the original note were not included. Referral placed to [facility] Await review and response regarding ability to accept. TCC notified. Electronically signed by [facility] Juana Villagomezh [facility] 05-06-2024 Note Formatting of this n ote is different from the original. Images from the original note were not included. Referral placed to [facility] Await review and response regarding ability to accept. TCC notified. Electronically signed by [facility] Juana Villagomezh [facility] 05-06-2024 Note Referral placed to [facility] Await review and response regarding ability to accept. TCC notified. Electronically signed by [facility] Miscellaneous Notes Images from the original note were not included. Referral placed to [facility] Await review and response regarding ability to accept. TCC notified. Addendum to earlier note: Pt to be discharged (returned) back to [facility]. Bedside RN aware, SW aware and will plan transport. Referral placed to SNF Return - [facility] via [facility] per TCC request. Await review and response regarding ability to accept. TCC notified. Care Managment Initial Assessment Date: 05/06/2024 Patient Name: Anmol Langley : 1960 Patient Information Source of Information: Patient Cognition/Language: WFL - Within Functional Limits Permission given to speak with patient auto claim representative/caregiver as indicated: Confirmation of Payer with patient/family: Yes Payer Name: Medicare A/B [place]: No Confirmation of Primary Care Physician: Confirmed PCP Name: Ambrosio Monroy DO Seen in last 2 years?: Yes Primary Caregiver: Self If assistance needed, confirmed caregiver ready, willing and able to care for patient at discharge: Confirmed with: Living Arrangements Current Residence: Number of Floors Number of Entry Steps: Bed/Bath Levels: Facility: Nursing Facility Skilled Facility Name: [facility] Plan to Return: Yes Lives with: Other (Comment) ([facility]) Support Systems: Parent, Family members, Friends/neighbors [...] Provider Meal Prep Assistance Provider Name: [facility] Laundry/Cleaning: Assistance Provider Laundry/Cleaning Assistance Provider Name: [facility] Finances/Bill Paying: Independent Communication: Independent Types of Care Services/Equipment Utilized Care Services: Dialysis Type: Durable Medical Equipment: Wheelchair (standard or power), Hospital Bed, Other (Comment) DME Provider: Hudson catheter (chronic) Patient's Goal/Discharge Plan Patient expects to be discharged to: Return to [facility] Discharge Planning Actions: Residential Facility referral indicated Banks of choice: Banks of choice discussed Patient's Choice Rights and [...] for kidney stones bilaterally. Pt is from [facility] and is agreeable to return. Pt states his mother is across the [place] from him. He has a chronic hudson and R picc in place. On iv ceftriaxone. Regular diet. Pt had PT eval ordered. Met with pt at bedside; explained role of tcc. Pt wanting to return to [facility] Has chronic hudson catheter. He has an electric w/c. Anticipate discharge (return) to [facility] today if medically stable. Anle Lima RN The patient is Moderately Stable [...] from the original note were not included. Dashawn Grimm MD 05/06/2024 at 5:11 PM UROLOGY OPERATIVE REPORT PATIENT NAME: Anmol Langley DATE OF : 1960 TODAY'S DATE: 05/06/2024 PreOp Dx:: Bladder calculus, bilateral ureteral calculus PostOp Dx: Same Operation : Cystoscopy pyelogram litholapaxy of large bladder stone left ureteroscopy with replacement of left stent, right stent change Surgeon Dashawn Grimm MD Assist Kaitlin Granados Anesthesia:general lma Ebl: Drains 6fr X 24cmJJ Hudson 16 [place] Hudson catheter Specimen: Bladder calculus for stone analysis, [...] removal of the right stent INDICATIONS: Anmol Langley , is a 63 y.o. male who presents with bilateral ureteral obstruction and a bladder stone.. Anmol Langley presents for bilateral laser lithotripsy. The risks benefits and alternatives were explained and the patient wishes to proceed. PROCEDURE: Anmol Langley Was brought to the operating room. Thorough [...] the bladder. The bladder was left full. Hudson catheter was placed to straight drain. He was awakened and transferred to cover room having tolerated procedure well. He will follow-up in 2 to 3 weeks for left stent removal right ureteroscopy possible laser lithotripsy and right stent change or removal. Dashawn Grimm MD 05/06/24 5:11 PM Spoke with the nurse Lauren from the facility pt came from. The nurse confirmed that pt did not have anything to eat after midnight and only sips of water with morning meds. See MAR for meds. documented in this encounter [facility] 05-06-2024 Hospital Discharge instructions Bianca Rodgers RN - 05/06/2024 2:49 PM EDT Images from the original note were not included. Continuity of Care Form Patient Name: Anmol Langley : 1960 Admit date: 05/05/2024 Discharge date: 05/06/2024 Code Status Order: Full Code Advance Directives: N Admitting Physician: Dashawn Grimm MD PCP: AMBROSIO MONROY DO Discharging Nurse: Bianca Rodgers RN Discharging Hospital Unit/Room#: H-5133/[id number] A Discharging Unit Phone Number: [phone] Emergency Contact: Extended Emergency Contact Information Primary Emergency Contact: Ronald Langley Mobile Relation: Sibling Secondary Emergency Contact: SUMI LANGLEY Mobile Relation: Daughter Past Surgical History: Past Surgical History: Procedure Laterality Date ANKLE SURGERY Right He has a titanium plate to the right ankle KNEE SURGERY Left ACL KNEE SURGERY Left removal of screw LAMINECTOMY Left 10/24/2020 LEFT BILATERAL L2-3-4-5 DECOMPRESSION performed by Opal Ayala MD at [facility] OR ORTHOPEDIC SURGERY Right removal of hardware ankle US PLACE URETAL STENT PERC PRE-EXIST TRACT S&I (HISTORICAL) Bilateral 04/14/2024 Dr. Grimm/Bashir Immunization History: There is no immunization history [...] assistance Toileting Total assistance Feeding Minimal assistance Investment Strategist Minimal assistance Med Delivery yes Wound Care [...] are sent with patient): wheelchair RN SIGNATURE: {E-signature:35303} CASE MANAGEMENT/SOCIAL WORK SECTION Inpatient Status Date: Discharging to Facility/ Agency Name: Address: Phone: Fax: Dialysis Facility (if applicable) Name: Address: Dialysis Schedule: Phone: Fax: Publicity Consultant/Armored Vehicle Officer signature: {E-signature:80845} PHYSICIAN SECTION Name: Anmol Langley Prognosis: {Rehab Prognosis:09413} Condition at Discharge: {Patient Condition:43554} Rehab Potential (if transferring to Rehab): {Rehab Prognosis:29280} Recommended Labs or Other Treatments After Discharge: The individual is being admitted to a nursing facility directly from an [facility] or a unit of a [facility] that is not operated by or licensed by [facility] under section 5119.14 or 5160-3-15.1 5 The individual requires the level of services provided by a nursing facility for the condition for which he or she was treated in the hospital and, Physician Certification: I certify the above information and transfer of Anmol Langley is necessary for the continuing treatment of the diagnosis listed and that he requires {ADELINE Level of Care:78396} for {greater less than:96064} 30 days. Update Admission H&P: {ADELINE Changes in H&P:42772} PHYSICIAN SIGNATURE: {E-signature:39585} The following attachments cannot be sent through Care Everywhere.Laser Lithotripsy for Kidney Stones Discharge Instructions (Micronesian)How to Care for Your Hudson Catheter (Micronesian)documented in this encounter [facility] 05-06-2024 Note Formatting of this n ote might be different from the original. Addendum to earlier note: Pt to be discharged (returned) back to [facility]. Bedside RN aware, VIVIAN aware and will plan transport. [facility] 05-06-2024 Note Formatting of this n ote might be different from the original. Addendum to earlier note: Pt to be discharged (returned) back to [facility]. Bedside RN aware, VIVIAN aware and will plan transport. [facility] 05-06-2024 Note 48 Hour Discharge [facility] Note Patient ID: Anmol Langley [id number] 63 y.o. 1960 Admit date: 05/05/2024 Discharge date: 05/06/2024 Admitting Physician: Dashawn Grimm MD Discharge Physician: Cindi Ferreira MD Consults: [...] tolerated Recommended Follow-up: Follow up with Dr. Grimm. His office will help coordinate outpatient follow [...] signed by Cindi Ferreira MD. PGY-2 Urology [facility] 05-06-2024 Hospital course Narrative Images from the original note were not included. 48 Hour Discharge Summary Note Patient ID: Anmol Langley [id number] 63 y.o. 1960 Admit date: 05/05/2024 Discharge date: 05/06/2024 Admitting Physician: Dashawn Grimm MD Discharge Physician: Cindi Ferreira MD Consults: [...] tolerated Recommended Follow-up: Follow up with Dr. Grimm. His office will help coordinate outpatient follow [...] MD. PGY-2 Urology documented in this encounter [facility] 05-06-2024 Note Formatting of this n ote might be different from the original. Referral placed to [facility] via [facility] per TCC request. Await review and response regarding ability to accept. TCC notified. Electronically signed by [facility] [place] [facility] 05-06-2024 Note Formatting of this n ote might be different from the original. Referral placed to [facility] via [facility] per TCC request. Await review and response regarding ability to accept. TCC notified. Electronically signed by [facility] Juana [place]om[place] [facility] 05-06-2024 Note Referral placed to [facility] Return - [facility] via [facility] per TCC request. Await review and response regarding ability to accept. TCC notified. Electronically signed by [facility] Note Formatting of this n ote might be different from the original. Care Managment Initial Assessment Date: 05/06/2024 Patient Name: Anmol Langley : 1960 Patient Information Source of Information: Patient Cognition/Language: WFL - Within Functional Limits Permission given to speak with patient auto claim representative/caregiver as indicated: Confirmation of Payer with patient/family: Yes Payer Name: Medicare A/B [place]: No Confirmation of Primary Care Physician: Confirmed PCP Name: Ambrosio Monroy DO Seen in last 2 years?: Yes Primary Caregiver: Self If assistance needed, confirmed caregiver ready, willing and able to care for patient at discharge: Confirmed with: Living Arrangements Current Residence: Number of Floors Number of Entry Steps: Bed/Bath Levels: Facility: Nursing Facility Skilled Facility Name: [facility] Plan to Return: Yes Lives with: Other (Comment) ([facility]) Support Systems: Parent, Family members, Friends/neighbors [...] Provider Meal Prep Assistance Provider Name: [facility] Laundry/Cleaning: Assistance Provider Laundry/Cleaning Assistance Provider Name: [facility] Finances/Bill Paying: Independent Communication: Independent Types of Care Services/Equipment Utilized Care Services: Dialysis Type: Durable Medical Equipment: Wheelchair (standard or power), Hospital Bed, Other (Comment) DME Provider: Hudson catheter (chronic) Patient's Goal/Discharge Plan Patient expects to be discharged to: Return to [facility] Discharge Planning Actions: Residential Facility referral indicated Banks of choice: Banks of choice discussed Patient's Choice Rights and [...] for kidney stones bilaterally. Pt is from [facility] and is agreeable to return. Pt states his mother is across the [place] from him. He has a chronic hudson and R picc in place. On iv ceftriaxone. Regular diet. Pt had PT carol ordered. Met with pt at bedside; explained role of tcc. Pt wanting to return to [facility] Has chronic hudson catheter. He has an electric w/c. Anticipate discharge (return) to [facility] today if medically stable. Anel Lima RN [facility] 05-06-2024 Note Formatting of this n ote might be different from the original. Care Managment Initial Assessment Date: 05/06/2024 Patient Name: Anmol Langley : 1960 Patient Information Source of Information: Patient Cognition/Language: WFL - Within Functional Limits Permission given to speak with patient auto claim representative/caregiver as indicated: Confirmation of Payer with [...] Levels: Facility: Nursing Facility Skilled Facility Name: [facility] Plan to Return: Yes Lives with: Other (Comment) ([facility]) Support Systems: Parent, Family members, Friends/neighbors [...] Provider Meal Prep Assistance Provider Name: [facility] Laundry/Cleaning: Assistance Provider Laundry/Cleaning Assistance Provider Name: [facility] Finances/Bill Paying: Independent Communication: Independent Types of Care Services/Equipment Utilized Care Services: Dialysis Type: Durable Medical Equipment: Wheelchair (standard or power), Hospital Bed, Other (Comment) DME Provider: Hudson catheter (chronic) Patient's Goal/Discharge Plan Patient expects to be discharged to: Return to [facility] Discharge Planning Actions: Residential Facility referral indicated Banks of choice: Banks of choice discussed Patient's Choice Rights and [...] for kidney stones bilaterally. Pt is from [facility] and is agreeable to return. Pt states his mother is across [place] from him. He has a chronic hudson and R picc in place. On iv ceftriaxone. Regular diet. Pt had PT eval ordered. Met with pt at bedside; explained role of tcc. Pt wanting to return to [facility] Has chronic hudson catheter. He has an electric w/c. Anticipate discharge (return) to [facility] today if medically stable. Anel Lima RN T [facility] 05-06-2024 Note UROLOGY PROGRESS NOTE PATIENT NAME: Anmol Franco Given DATE OF : 1960 ADMISSION DATE: 05/05/2024 TODAY'S DATE: 05/06/2024 Subjective Pt evalauted at bedside in [facility]. [place]. POD1 of laser lithotripsy and b/l ureteral stent exchange. Unable to ambulate (paraplegic) but pt states tolerating diet. Denies fevers/chills, n/v, flank pain, suprapubic pain, or other systemic symptoms. Pt denies any concerns at this time. Hudson bag draining Grade 4 urine early this [...] - Resume diet - Continue to monitor hudson catheter for hematuria evaluation - Plan to discharge today vs tomorrow - Will coordinate outpatient f/u care with Urology - Continue to monitor labs and VS Cindi Ferreira MD PGY-2 Urology Cindi Ferreira MD PGY-2 Urology [facility] 05-06-2024 History of Present illness Narrative UROLOGY PROGRESS NOTE PATIENT NAME: Anmol Langley DATE OF : 1960 ADMISSION DATE: 05/05/2024 TODAY'S DATE: 05/06/2024 Subjective Pt evalauted at bedside in NAD. JAKEEON. POD1 of laser lithotripsy and b/l ureteral stent exchange. Unable to ambulate (paraplegic) but pt states tolerating diet. Denies fevers/chills, n/v, flank pain, suprapubic pain, or other systemic symptoms. Pt denies any concerns at this time. Hudson bag draining Grade 4 urine early this [...] - Resume diet - Continue to monitor hudson catheter for hematuria evaluation - Plan to discharge today vs tomorrow - Will coordinate outpatient f/u care with Urology - Continue to monitor labs and VS Cindi Ferreira MD PGY-2 Urology Cindi Ferreira MD PGY-2 Urology documented in this encounter [facility] 05-05-2024 Plan of care note [...] Recommendations to address these barriers include none. [facility] 05-05-2024 Note Formatting of this n ote might be different from the original. Belongings returned to patient bedside. Meal tray ordered [facility] 05-05-2024 Note Formatting of this n ote might be different from the original. Belongings returned to patient bedside. Meal tray ordered T [facility] 05-05-2024 Note Patient: Anmol Santiago en Procedure Summary Date: 05/05/24 Room / Location: [address] Operating Room Anesthesia Start: 152 Anesthesia Stop: 165 Procedures: CYSTOSCOPY, POSSIBLE CYSTOLITHOLAPAXY, BILATERAL URETEROSCOPY ASTRID LASER LITHOTRIPSY, BILATERAL URETERAL STENT CHANGE (Urethra) POSSIBLE CYSTOLITHOLAPAXY (Urethra) BILATERAL URETEROSCOPY ASTRID LASER LITHOTRIPSY (Bilateral: Urethra) BILATERAL URETERAL STENT CHANGE (Bilateral: Urethra) Diagnosis: Calculus of ureter Surgeons: Dashawn Grimm MD Responsible Provider: Corbin Matias MD Anesthesia [...] start time until discharged from PACU ([id number]) [facility] Anesthesiology Smoking Abstinence The patient is [...] opportunity for questions and acknowledgement of understanding. [facility] 05-05-2024 Note Patient: Anmol Santiago en Procedure Summary Date: 05/05/24 Room / Location: [place] [address] [facility] Operating Room Anesthesia Start: 1521 Anesthesia Stop: 1653 Procedures: CYSTOSCOPY, POSSIBLE CYSTOLITHOLAPAXY, BILATERAL URETEROSCOPY ASTRID LASER LITHOTRIPSY, BILATERAL URETERAL STENT CHANGE (Urethra) POSSIBLE CYSTOLITHOLAPAXY (Urethra) BILATERAL URETEROSCOPY ASTRID LASER LITHOTRIPSY (Bilateral: Urethra) BILATERAL URETERAL STENT CHANGE (Bilateral: Urethra) Diagnosis: Calculus of ureter Surgeons: Dashawn Grimm MD Responsible Provider: Corbin Matias MD Anesthesia [...] once all PACU criteria has been met. [facility] 05-05-2024 Note Airway Date/Time: 05/05/2024 3:29 PM Urgency: scheduled Airway not difficult General Information and Staff Patient location during procedure: Procedural Resident/DEPUTY SHERIFF BAILIFF: Jj Flores CRNA Performed: DEPUTY SHERIFF BAILIFF Indications and Patient Condition Indications for airway management: anesthesia Sedation level: Asleep Preoxygenated: yes Patient position: sniffing Mask difficulty assessment: 0 - not attempted Final Airway Details Final airway type: supraglottic airway Successful airway: Igel Size 4 Number of attempts at approach: 1 [facility] 05-05-2024 Note Formatting of this n ote might be different from the original. Images from the original note were not included. Dashawn Grimm MD 05/06/2024 at 5:11 PM UROLOGY OPERATIVE REPORT PATIENT NAME: Anmol Langley DATE OF : 1960 TODAY'S DATE: 05/06/2024 PreOp Dx:: Bladder calculus, bilateral ureteral calculus PostOp Dx: Same Operation : Cystoscopy pyelogram litholapaxy of large bladder stone left ureteroscopy with replacement of left stent, right stent change Surgeon Dashawn Grimm MD Assist Kaitlin Granados Anesthesia:general lma Ebl: Drains 6fr X 24cmJJ Hudson 16 [place] Hudson catheter Specimen: Bladder calculus for stone analysis, [...] removal of the right stent INDICATIONS: Anmol Langley , is a 63 y.o. male who presents with bilateral ureteral obstruction and a bladder stone.. Anmol Langley presents for bilateral laser lithotripsy. The risks benefits and alternatives were explained and the patient wishes to proceed. PROCEDURE: Anmol Langley Was brought to the operating room. Thorough [...] the bladder. The bladder was left full. Hudson catheter was placed to straight drain. He was awakened and transferred to cover room having tolerated procedure well. He will follow-up in 2 to 3 weeks for left stent removal right ureteroscopy possible laser lithotripsy and right stent change or removal. Dashawn Grimm MD 05/06/24 5:11 PM [facility] 05-05-2024 Note Formatting of this n ote might be different from the original. Images from the original note were not included. Dashawn Grimm MD 05/06/2024 at 5:11 PM UROLOGY OPERATIVE REPORT PATIENT NAME: Anmol Langley DATE OF : 1960 TODAY'S DATE: 05/06/2024 PreOp Dx:: Bladder calculus, bilateral ureteral calculus PostOp Dx: Same Operation : Cystoscopy pyelogram litholapaxy of large bladder stone left ureteroscopy with replacement of left stent, right stent change Surgeon Dashawn Grimm MD Assist Kaitlin Granados Anesthesia:general lma Ebl: Drains 6fr X 24cmJJ Hudson 16 [place] Hudson catheter Specimen: Bladder calculus for stone analysis, [...] removal of the right stent INDICATIONS: Anmol Langley , is a 63 y.o. male who presents with bilateral ureteral obstruction and a bladder stone.. Anmol Langley presents for bilateral laser lithotripsy. The risks benefits and alternatives were explained and the patient wishes to proceed. PROCEDURE: Anmol Langley Was brought to the operating room. Thorough [...] the bladder. The bladder was left full. Hudson catheter was placed to straight drain. He was awakened and transferred to cover room having tolerated procedure well. He will follow-up in 2 to 3 weeks for left stent removal right ureteroscopy possible laser lithotripsy and right stent change or removal. Dashawn Grimm MD 05/06/24 5:11 PM [facility] 05-05-2024 Attending History and physical note Images from the original note were not included. H&P Update Patient's History and Physical from 04/27/24 was reviewed. Patient examined. There has been no change. Impression: bilateral ureteral calculus bladder calculus Plan: : cp laser bladder stone bilateral ureteroscopy laser lithotripsy bilateral stent change : Electronically signed by Dashawn Grimm MD 05/05/24 1:20 PM Source Note - Radha Lucas APRN - BEADER TENDER - 04/27/2024 2:00 PM EDT Images from the original note were not included. Comprehensive Pre Surgical History and Physical ? Name: Anmol Langley : 1960 (Age-63 y.o.) Date of Service: Pt seen/examined on 04/27/2024 Procedure Information Date/Time: 05/05/24 1230 Procedures: CYSTOSCOPY (Urethra) - 120 MINS POSSIBLE CYSTOLITHOLAPAXY (Urethra) BILATERAL URETEROSCOPY ASTRID LASER LITHOTRIPSY (Bilateral: Urethra) BILATERAL URETERAL STENT CHANGE (Bilateral: Urethra) Location: [facility] OR [address] [place] [address] Operating Room Surgeons: Dashawn Grimm MD Chief Complaint: Calculus of ureter [N20.1] [...] we are asked to see/evaluate by Dr. Grimm for pre-operative evaluation prior to above procedure. Recent hospitalization for septic shock due to UTI and bacteremia. Was discharged to SNF on 04/20/24 for continued management. Currently asymptomatic without fever or chills. Continues with outpatient IV antibiotics through PICC line for 2 more days. Denies prior problems with anesthesia. No [facility] problems with anesthesia Denies c/o chest pain, dizziness, sob, syncope, palpitations, tachycardia, cough, wheezing, nvd, fever or chills Wheelchair bound (paraplegia)- No chest pain or sob with normal activity(upper body activity) Do you have a history of chronic opioid use? oxycodone per pain management ? Denies history of UT, CAD, CHF, CVA, seizures, asthma/copd, WEST, PE/DVT [...] date: Type 2 diabetes mellitus without complication (CMS/HCC) ([facility]) No date: Urinary calculus, unspecified No date: UTI (urinary tract infection) Past Surgical History: Past Surgical History: No date: ANKLE SURGERY; Right Comment: He has a titanium plate to the right ankle No date: KNEE SURGERY; Left Comment: ACL No date: KNEE SURGERY; Left Comment: removal of screw 10/24/2020: LAMINECTOMY; Left Comment: LEFT BILATERAL L2-3-4-5 DECOMPRESSION performed by Opal Ayala MD at [facility] No date: ORTHOPEDIC SURGERY; Right Comment: removal of hardware ankle 04/14/2024: US PLACE URETAL STENT PERC PRE-EXIST TRACT S&I (HISTORICAL); Bilateral Comment: Dr. Grimm/Bashir Medications Prior to Admission: Prior to Admission [...] for up to 3 days. 04/20/24 04/23/24 Vish Mckenzie DO polyethylene glycol, PEG, 3350 (Miralax) 17 g packet Take 17 g by mouth in the morning and 17 g in the evening. 04/28/23 Historical Provider, potassium chloride CR (Klor-Con M20) 20 MEQ ER tablet 04/12/23 Historical Provider, pregabalin (Lyrica) 200 MG capsule Take 1 capsule (200 mg) by mouth 3 times daily for 7 days. 04/20/24 04/27/24 Vish Mckenzie DO tamsulosin (Flomax) 0.4 MG 24 [...] QT Interval 426 QTC Interval 477 P [place] 10 QRS [place] 28 T Wave [place] 28 [place] Interval 159 Impression Sinus rhythm Electronically Signed On 04-20-2024 15:22:00 EDT by Jax Wiggins ECHO and EF:None on file METS __Wheelchair bound (paraplegia)- No chest pain or sob with normal activity (upper body activities) Electronically signed by: Radha Lucas APRN - BEADER TENDER Date: 04/27/2024 at 3:18 PM [facility] Phone: 05-05-2024 History and physical note Images from the original note were not included. H&P Update Patient's History and Physical from 04/27/24 was reviewed. Patient examined. There has been no change. Impression: bilateral ureteral calculus bladder calculus Plan: : cp laser bladder stone bilateral ureteroscopy laser lithotripsy bilateral stent change : Electronically signed by Dashawn Grimm MD 05/05/24 1:20 PM Source Note - Radha Lucas APRN - BEADER TENDER - 04/27/2024 2:00 PM EDT Images from the original note were not included. Comprehensive Pre Surgical History and Physical ? Name: Anmol Langley : 1960 (Age-63 y.o.) Date of Service: Pt seen/examined on 04/27/2024 Procedure Information Date/Time: 05/05/24 1230 Procedures: CYSTOSCOPY (Urethra) - 120 MINS POSSIBLE CYSTOLITHOLAPAXY (Urethra) BILATERAL URETEROSCOPY ASTRID LASER LITHOTRIPSY (Bilateral: Urethra) BILATERAL URETERAL STENT CHANGE (Bilateral: Urethra) Location: [facility] OR [address] [place] [address] Operating Room Surgeons: Dashawn Grimm MD Chief Complaint: Calculus of ureter [N20.1] [...] we are asked to see/evaluate by Dr. Grimm for pre-operative evaluation prior to above procedure. Recent hospitalization for septic shock due to UTI and bacteremia. Was discharged to SNF on 04/20/24 for continued management. Currently asymptomatic without fever or chills. Continues with outpatient IV antibiotics through PICC line for 2 more days. Denies prior problems with anesthesia. No [facility] problems with anesthesia Denies c/o chest pain, dizziness, sob, syncope, palpitations, tachycardia, cough, wheezing, nvd, fever or chills Wheelchair bound (paraplegia)- No chest pain or sob with normal activity(upper body activity) Do you have a history of chronic opioid use? oxycodone per pain management ? Denies history of UT, CAD, CHF, CVA, seizures, asthma/copd, WEST, PE/DVT [...] date: Type 2 diabetes mellitus without complication ([facility]/HCC) (HCC) No date: Urinary calculus, unspecified No date: UTI (urinary tract infection) Past Surgical History: Past Surgical History: No date: ANKLE SURGERY; Right Comment: He has a titanium plate to the right ankle No date: KNEE SURGERY; Left Comment: ACL No date: KNEE SURGERY; Left Comment: removal of screw 10/24/2020: LAMINECTOMY; Left Comment: LEFT BILATERAL L2-3-4-5 DECOMPRESSION performed by Opal Ayala MD at [facility] No date: ORTHOPEDIC SURGERY; Right Comment: removal of hardware ankle 04/14/2024: US PLACE URETAL STENT PERC PRE-EXIST TRACT S&I (HISTORICAL); Bilateral Comment: Dr. Grimm/Bashir Medications Prior to Admission: Prior to Admission [...] for up to 3 days. 04/20/24 04/23/24 Vish Mckenzie DO polyethylene glycol, PEG, 3350 (Miralax) 17 g packet Take 17 g by mouth in the morning and 17 g in the evening. 04/28/23 Historical Provider, potassium chloride CR (Klor-Con M20) 20 MEQ ER tablet 04/12/23 Historical Provider, pregabalin (Lyrica) 200 MG capsule Take 1 capsule (200 mg) by mouth 3 times daily for 7 days. 04/20/24 04/27/24 Vish Mckenzie DO tamsulosin (Flomax) 0.4 MG 24 [...] QT Interval 426 QTC Interval 477 P [place] 10 QRS [place] 28 T Wave [place] 28 [place] Interval 159 Impression Sinus rhythm Electronically Signed On 04-20-2024 15:22:00 EDT by Jax Wiggins ECHO and EF:None on file METS __Wheelchair bound (paraplegia)- No chest pain or sob with normal activity (upper body activities) Electronically signed by: Radha Lucas APRN - BEADER TENDER Date: 04/27/2024 at 3:18 PM documented in this encounter [facility] 05-05-2024 Note H&P Update Patient's History and Physical from 04/27/24 was reviewed. Patient examined. There has been no change. Impression: bilateral ureteral calculus bladder calculus Plan: : cp laser bladder stone bilateral ureteroscopy laser lithotripsy bilateral stent change : Electronically signed by Dashawn Grimm MD 05/05/24 1:20 PM [facility] 05-05-2024 Note Formatting of this n ote might be different from the original. Spoke with the nurse Aguilar from the facility pt came from. The nurse confirmed that pt did not have anything to eat after midnight and only sips of water with morning meds. See MAR for meds. [facility] 05-05-2024 Note Formatting of this n ote might be different from the original. Spoke with the nurse Aguilar from the facility pt came from. The nurse confirmed that pt did not have anything to eat after midnight and only sips of water with morning meds. See MAR for meds. [facility] 05-04-2024 Telephone encounter Note R/S patient for 06/14 at 8:30a, also [facility] 05-04-2024 Miscellaneous Notes R/S patient for 06/14 at 8:30a, also [facility] Name of Caller: Doug Contact Reason for Appointment: Reschedule 04/21/24 appointment Office Name: Interventional Pain Management documented in this encounter [facility] 05-04-2024 Telephone encounter Note Name of Caller: Doug Contact Reason for Appointment: Reschedule 04/21/24 appointment Office Name: Interventional Pain Management [facility] 04-27-2024 Telephone encounter Note Call placed to pt. No answer no VM set up. No return calls from [facility]. Pt is scheduled for PAT today. [facility] 04-27-2024 Miscellaneous Notes Call placed [...] OLIVA (arrive 15 min early): 04/27 @2pm [facility] PAT instructions: Please bring photo ID, insurance card, list of all current medications Surgery: 05/05 @12:30 [facility] Surgery arrival time: 10:30am Surgery instructions: Nothing [...] out to pt. SURGERY SCHEDULING Surgeon: Dr. Dashawn Grimm PROCEDURE: Cystoscopy, possible cystolitholapaxy, bilateral ureteroscopy, bilateral laser lithotripsy, bilateral ureteral stent change - Special request: Astrid laser DIAGNOSIS: Bladder calculus, bilateral ureteral stones FACILITY: [facility] or [facility] DETAILS: OUTPT ANESTHESIA: GENERAL TIME REQUESTED: 2hr DATE REQUESTED: Must be minimum of 2 weeks from today due to infection SURGERY ORDERS: Already placed by Joe Hammer NP on 04/15/2024 POST OP FOLLOW UP: cysto stent removal 2 wks documented in this encounter [facility] 04-26-2024 Telephone encounter Note Called pt and discussed his MRI L spine results. He has SCI rehab follow up scheduled. Recommended Spine Surgery opinion. No change in clinical condition from last visit. Timmy Martinez DO [facility] 04-26-2024 Miscellaneous Notes Called pt and discussed his MRI L spine results. He has SCI rehab follow up scheduled. Recommended Spine Surgery opinion. No change in clinical condition from last visit. Timmy Martinez DO Called pt again. Staff at the SNF stated he was unable to come to the phone and asked for call back later in the day. Timmy Martinez DO Called pt and reached staff, but he was unable to come to the phone. Will try again tomorrow. Timmy Martinez DO Called pt on his room number but unable to reach him or leave a message. I called nursing staff at the [place] where he lives and was able to leave a message with nursing regarding his MRI findings and that I would like to speak with him and recommendations to schedule visit with SCI rehab and spine surgery. Timmy Martinez DO Telephoned [place] pt at dinner and office assistant receptionist states she cannot pull pt away from dinner. Called pt regarding his MRI, which showed: IMPRESSION: Acute-subacute sacral insufficiency fracture at S2. Postoperative and degenerative changes of the lumbar spine with linear granulation tissue at L2-3 and tethering of the cauda equina suggesting sequelae of chronic arachnoiditis. No evidence of osteomyelitis discitis or epidural abscess. He was currently out of the longterm where he lives, but I was able [...] not have mychart set up to message. Timmy Martinez DO documented in this encounter [facility] 04-26-2024 Telephone encounter Note Called pt again. Staff at the [facility] stated he was unable to come to the phone and asked for call back later in the day. Timmy Martinez DO [facility] 04-25-2024 Telephone encounter Note Called pt and reached staff, but he was unable to come to the phone. Will try again tomorrow. Timmy Martinez DO [facility] 04-25-2024 Telephone encounter Note Call placed to pt to advise of SX information. No answer, unable to LVM. If pt calls back into office please advise of below information or transfer to me. Doctor: JORGE OLIVA (arrive 15 min early): 04/27 @2pm [facility] PAT instructions: Please bring photo [...] counter vitamins 3 days prior to surgery [facility] 04-25-2024 Miscellaneous Notes Call placed to pt to advise of SX information. No answer, unable to LVM. If pt calls back into office please advise of below information or transfer to me. Doctor: JORGE OLIVA (arrive 15 min early): 04/27 @2pm [facility] PAT instructions: Please bring photo ID, insurance [...] out to pt. SURGERY SCHEDULING Surgeon: Dr. Dashawn Grimm PROCEDURE: Cystoscopy, possible cystolitholapaxy, bilateral ureteroscopy, bilateral laser lithotripsy, bilateral ureteral stent change - Special request: Astrid laser DIAGNOSIS: Bladder calculus, bilateral ureteral stones FACILITY: [facility] or [facility] DETAILS: OUTPT ANESTHESIA: GENERAL TIME REQUESTED: 2hr DATE REQUESTED: Must be minimum of 2 weeks from today due to infection SURGERY ORDERS: Already placed by Joe Hammer NP on 04/15/2024 POST OP FOLLOW UP: cysto stent removal 2 wks documented in this encounter [facility] 04-21-2024 Telephone encounter Note Call placed to pt but no answer at this time. Pt does not have VM set up so unable to LVM. No MyChart set up. Will continue to reach out to pt. [facility] 04-20-2024 Miscellaneous Notes Dc to [facility] this evening at 6:30. [facility] messaged the facility with dc time and left a voicemail message for patients brother with dc time and arrangements. Re faxed opat to [phone]. Discharge med list transmitted to return back to [facility] via [facility] per [facility] request. Images from the original note were not included. Care Management Progress Note Chart reviewed. Patient remains on . Discussed patient in rounds. Noted discharge order. Noted patient received PICC placement today. Faxed opat for Ertapenem IV to [phone]. BONE WORKER tasked to send final updates to [facility]. SW tasked to arrange transportation today when ready. Patient will need covid test resulted before leaving hospital. TCC section of ADELINE completed. DC plan: return to [facility], no auth needed. Bed hold. Discharge Milestones and Delays Expected date/time: 04/20/2024 Medically ready since: 04/20/2024 Disposition: Residential Facility Transport status: No current request Discharge Milestones Place discharge order Complete med reconciliation Case mgmt discharge readiness Clinical Stability Diagnostic Workup Imaging Results Patient Education Complete Expected Discharge History Expected Date/Time Set By Reviewed At 04/20/2024 Vish Mckenzie DO 04/20/2024 11:42 AM 04/18- From [facility]. 04/20- Getting a picc today for IV antibiotics, [facility]." 04/20/2024 LINDSAY Gallardo 04/20/2024 9:34 AM 04/20/2024 LINDSAY Gallardo 04/19/2024 9:13 AM 04/18- From [facility]." 04/20/2024 Chrissie Rodrigues RN 04/19/2024 7:55 AM 04/20/2024 Chrissie Rodrigues RN 04/18/2024 7:54 AM 04/17/2024 Isabel Kirby RN 04/15/2024 9:16 AM 04/16/2024 Ene Dickens MD 04/14/2024 10:37 PM 04/16/2024 Ene Dickens MD 04/14/2024 7:38 PM Length of [...] Sent updated notes to return back [facility] request. Await review and response regarding ability [...] Merrem, Diflucan, and Mag Sulfate. Has chronic hudson in place. Pt is from [facility]. Tasked BONE WORKER to send updated clinicals to facility. Pt is a bedhold, no auth required to return. Will however need a covid test before returning to facility. Discharge plan is [facility] when medically ready. apartment community assistant manager to follow and assist as needed. Discharge Milestones and Delays Expected date/time: 04/20/[address] discharge order Complete med reconciliation Case mgmt discharge readiness Clinical Stability Diagnostic Workup Patient Education Complete Expected Discharge History Expected Date/Time Set By Reviewed At 04/20/2024 Chrissie Rodrigues RN 04/18/2024 7:54 AM 04/17/2024 Isabel Kirby RN 04/15/2024 9:16 AM 04/16/2024 Ene Dickens MD 04/14/2024 10:37 PM 04/16/2024 Ene Dickens MD 04/14/2024 7:38 PM Length of [...] Transferred out of ICU. chronic paraplegia, chronic hudson for neurogenic bladder. came in with obstructed hudson. urosepsis and septic shock. urology put in ureteral stents. there's still a big bladder stone vs fungus ball (per Dr. Grimm). Proteus bacteremia. on ertapenem and fluconazole. ID [...] Initial Assessment Date: 04/15/2024 Patient Name: Anmol Langley : 1960 Patient Information Source of Information: Patient Name/Contact Information: Ronald Langley [phone] brother and daughter Sumi Langley Cognition/Language: WFL - Within Functional Limits Permission given to speak with patient auto claim representative/caregiver as indicated: Yes Confirmation of Payer with patient/family: Yes Payer Name: medicare and medicaid Griffin: No Confirmation of Primary Care Physician: Confirmed PCP Name: house doctor at [facility]-Dr. Alatorre Seen in last 2 years?: Yes Primary Caregiver: Other (Comment) If assistance needed, confirmed caregiver ready, willing and able to care for patient at discharge: Yes Confirmed with: staff at f Living Arrangements Current Residence: (ecf) Number of Floors 1 Number of Entry Steps: (level) Bed/Bath Levels: Both first floor Facility: [facility] Facility Name: [facility] Plan to Return: Yes Lives with: (ecf) Support Systems: Family members, Comments (Other) (facility) Activities of Daily Living Ambulation: Total Care (everett lift to wc) Bathing/Dressing: Total Care Elimination/Continence/Toileting: Total Care Feeding: Assistance Who Assists with Activities of Daily Living: longterm staff Instrumental Activities of Daily Living Prescription Coverage: Yes Pharmacy Used: [facility] Medication Management: Medication dispenser Who assists with medication securing and setup?: [facility] Transportation/Shopping: Assistance Provider Transportation/Shopping Assistance Provider Name: facility Transportation Mode: Payer provided transport service Needs Assistance with Transportation at Discharge: Yes Meal Preparation: Assistance Provider Meal Prep Assistance Provider Name: [facility] Laundry/Cleaning: Assistance Provider Laundry/Cleaning Assistance Provider Name: [facility] Finances/Bill Paying: Assistance Provider Finances/Bill Payer Assistance Provider Name: brother Communication: Independent, Emergency Call System Types of Care Services/Equipment Utilized Care Services: Dialysis Type: NA Durable Medical Equipment: Wheelchair (standard or power) Patient's Goal/Discharge Plan Patient expects to be discharged to: return to [facility] Discharge Planning Actions: Continue to follow Patient's Choice Rights and [employer] and Collaborative Relationships Disclosed as Indicated for Post-Acute Care: Yes Interdisciplinary Team Engagement: Social Work Referral for: Additional Information: Inpatient status from [facility] with sepsis. Urology consulted due to bilateral ureteral obstructing calculi. . OR yesterday. For cystoscopy, bilateral ureteral stent placement placement and hudson catheter change. BC obtained and are positive. Urine cultures obtained and are pending. ID following. Is receiving iv antibiotic therapy. Levophed drip weaned off this afternoon. Met with patient. Introduced myself and explained my role. Patient with history of paraplegia and states has been at [facility] for a year and wishes to return upon discharge. Tasked BONE WORKER to place referral in [facility]. He is everett lift to at facility. Will need to monitor for antibiotic needs upon discharge. Did call facility to obtain daughter's phone number for patient and updated primary care nurse with this information. .. Isabel Kirby RN Referral placed to return back to [facility] via [facility] per TCC request. Await review and response regarding ability to accept. TCC notified. Images from the original note were not included. Dashawn Grimm MD 04/14/2024 at 10:49 PM UROLOGY OPERATIVE REPORT PATIENT NAME: Anmol Langley DATE OF : 1960 TODAY'S DATE: 04/14/2024 PreOp Dx:: Bilateral ureteral obstruction, urosepsis PostOp Dx: Same, large fungus ball in the bladder and likely fungus in the right ureter Operation : Cystoscopy pyelogram bilateral stent change Hudson insertion Surgeon Dashawn Grimm MD Assist Anesthesia:general lma Ebl: Drains left 6 x 28 double-J stent, right 7 x 26 double-J stent Hudson-22 [place] coud catheter Specimen: Complications None; patient tolerated the procedure well. Findings: He is a 63-year-old paraplegic longterm resident with a chronic Hudson catheter. He had laser lithotripsy in 2022. He presented to the emergency room today with a clogged Hudson catheter. CT scan subsequently shows bilateral ureteral [...] 6 x 26 stent was passed. 22 [place] coud catheter was placed to straight drain. INDICATIONS: Anmol Langley , is a 63 y.o. male who presents with urosepsis bilateral ureteral obstruction. Anmol Langley presents for cystoscopy stent placement. The risks benefits and alternatives were explained and the patient wishes to proceed. PROCEDURE: Anmol Langley Was brought to the operating room. Thorough time out was performed and everyone present was in agreement. Patient was placed on OR table. Anesthesia and lines were maintained by the anesthesia team. After general anesthesia was induced Hudson catheter was removed he was prepped and [...] bladder. The bladder was left full. 22 [place] coud catheter was placed into the bladder. He was awakened and transferred to the recovery room. ICU was consulted for admission due to the hypotension and need for pressors during the case as well as the lactic acidosis. Dashawn Grimm MD 04/14/24 10:49 PM documented in this encounter [facility] 04-20-2024 Hospital course Narrative Images from the original note were not included. Hospitalist Discharge Summary Anmol Langley : 1960 Admit date: 04/14/2024 Discharge date: 04/20/2024 Admitting Physician: Blaise Hooker MD Primary Care Physician: AMBROSIO MONROY [...] TO INFECTIOUS DISEASES IP CONSULT TO HOME SECURITY PROFESSIONAL Discharge Instructions: Diet: Adult diet Regular; 5 carb choices (75 gm/meal) Activity: as tolerated Recommended Outpatient Tests: Disposition: Patient discharged in stable condition to SNF LABS: CBC: Recent Labs 04/18/24 0712 04/19/24 0428 04/20/24 0359 WBC 8.4 9.2 6.4 RBC 3.95* 3.79* 3.70* HGB 12.1* 11.6* 11.3* HCT 36.6* 35.0* 34.8* MCV 92.7 92.3 94.1 RDW 15.0 14.8 14.8 PLT 79* 88* 121* BMP: Recent Labs 04/18/24 0712 04/19/24 0428 04/20/24 0359 NA 140 138 138 K 3.1* 3.5 3.8 CL 105 107 108* CO2 27 26 23 BUN 15 14 14 CREATININE 0.51* 0.44* 0.44* GLUCOSE 74 153* 284* CALCIUM 7.8* 7.9* 7.6* ANIONGAP 7 5 6 LIVER PROFILE: Recent Labs 04/18/24 0712 04/19/24 0428 04/20/24 0359 AST 18 19 19 ALT 18 16 [...] Complexity: follow up within 7-14 calendar days (60713) [x] Severe Complexity: follow up within 7 calendar days (11537) Follow up Testing, Pending results or Referrals [...] appointment within the above time frame. Signed: Vish Mckenzie DO Division of [facility] Inpatient Medical Services/[facility] 04/20/2024, 11:42 AM Total time Spent on Discharge: 32 minutes documented in this encounter [facility] 04-20-2024 Hospital Discharge instructions Faby Maxwell RN - 04/20/2024 11:42 AM EDT Images from the original note were not included. Continuity of Care Form Patient Name: Anmol Langley : 1960 Admit date: 04/14/2024 Discharge date: 04/20/24 Code Status Order: Full Code Advance Directives: N Admitting Physician: Blaise Hooker MD PCP: AMBROSIO MONROY DO Discharging Nurse: Discharging Hospital Unit/Room#: B2-254/B2-254 A Discharging Unit Emergency Contact: Extended Emergency Contact Information Primary Emergency Contact: Ronald Langley Mobile Relation: Sibling Secondary Emergency Contact: SUMI LANGLEY Mobile Relation: Daughter Past Surgical History: Past Surgical History: Procedure Laterality Date ANKLE SURGERY Right He has a titanium plate to the right ankle KNEE SURGERY ACL LAMINECTOMY Left 10/24/2020 LEFT BILATERAL L2-3-4-5 DECOMPRESSION performed by Opal Ayala MD at [facility] OR ORTHOPEDIC SURGERY PLACE URETAL STENT PERC PRE-EXIST TRACT S&I (HISTORICAL) Bilateral 04/14/2024 Dr. Grimm/Bashir Immunization History: There is no immunization history [...] assistance Toileting Total assistance Feeding Minimal assistance Investment Strategist Minimal assistance Med Delivery yes Wound Care Documentation and Therapy: Wound/Incision 04/14/24 Pressure Injury Sacrum (Active) Site Assessment Unable to assess 04/19/242039 [place]-Wound Assessment Clean;Dry;Intact 04/19/242039 Drainage Description Red 04/19/24 1651 Odor None 04/18/248 Drainage Amount Scant 04/19/24 165 Treatments Cleansed;Zinc - oxide paste 04/19/24 165 Primary Dressing Foam 04/19/24 165 Dressing Status Clean, dry & intact 04/19/242039 Number of days: 5 Wound/Incision 04/14/24 Foot Anterior;Right (Active) Wound Image 04/14/242257 Number of days: 5 Wound/Incision 04/14/24 Foot Anterior;Left (Active) Wound Image 04/14/242258 Number of days: 5 Elimination: Continence: Bowel: [...] Date: 04-14-2024 Discharging to Facility/ Agency Name: [facility] Address: [address] [place] [address] Dialysis Facility (if applicable) Name: Address: Dialysis Schedule: Phone: Fax: Publicity Consultant/Armored Vehicle Officer signature: {E-signature:33610} ICIAN SECTION Name: Anmol Langley Prognosis: {Rehab Prognosis:23734} Condition at Discharge: {Patient Condition:44227} Rehab Potential (if transferring to Rehab): excellent Recommended Labs or Other Treatments After Discharge: blood cultures to be obtained on 05/06/24 The individual is being admitted to a nursing facility directly from an [facility] or a unit of a [facility] that is not operated by or licensed by [facility] under section 5119.14 or 5160-3-15.1 5 The individual requires the level of services provided by a nursing facility for the condition for which he or she was treated in the hospital and, Physician Certification: I certify the above information and transfer of Anmol Langley is necessary for the continuing treatment of the diagnosis listed and that he requires shelter facility for less than 30 days. Update Admission H&P: No change in H&P PHYSICIAN SIGNATURE: documented in this encounter [facility] 04-20-2024 Nurse Note Patient tolerated procedure well. Transferring back to nursing floor. Patient arrived from [facility], AMOL Enriquez was in to speak with the patient regarding PICC, consent was obtained. Patient was placed supine on exam table prepped and draped in sterile fashion. Telemetry monitors placed, vitals being monitored. documented in this encounter [facility] 04-19-2024 History of Present illness [...] Fluid Accumulation: Mild Extremities (+2 kenroy LE) Associate Broker Strength: Not Performed Nutrition Assessment: per MD [...] On: Kcal/kg Weight Used for Energy Requirements: [place] Weight for Energy Calculation (kg): 82 kg Total Energy Requirements (kcals/day): 2307-4706 (28-30) Weight Used for Protein Requirements: [place] Weight in Kg Used for Protein Requirements: [...] (183 lb) % Weight Change (Calculated): 12.2 [place] Body Weight (lbs) (Calculated): 196 lbs [place] Body Weight (Kg) (Calculated): 89 kg % [place] Body Weight (Calculated): 104.7 % BMI (kg/m2) (Calculated): 26.5 Weight Adjustment For: Paraplegia % Weight Adjustment: 7.5 - Paraplegia Total Adjusted Percentage (Calculated): 7.5 Adjusted [place] Body Weight (lbs) (Calculated): 181.3 lbs Adjusted [place] Body Weight (kg) (Calculated): 82.41 kg Adjusted [...] Continue current diet Zonia Dumont RD Contact: *[phone] or via Secure Chat Images from the original note were not included. [facility] - Infectious Diseases Attending Progress Note Subjective: Follow up for septic shock, bacteremia due to proteus, providencia, and morganella, complicated UTI and bilateral ureteral obstruction s/p cystoscopy, bilateral stent change and Hudson cath insertion on 04/14/24. He was alert, laying on bed, felt well, c/o chronic legs pain; denied fever, chill or any new complaints, he appeared non-toxic. He was admitted to ICU on 04/14/24 with a clogged hudson catheter and both leg pain; on presentation, he had a temp of 99.6 F with tachycardia (P 121), hypotension (BP 82/55), tachypneic (R 20-30), his BP further decreased to 63/51; CT scan of abdomen and pelvis showed bilateral ureteral obstruction with bilateral hydronephrosis, he was brought to the operating room for emergent stent placement, and a hudson catheter was placed to straight drain. He [...] person, place, and time. Labs: Recent Labs 04/17/2434104/18/24 0712 04/19/24 0428 NA 135 140 138 K 3.2* 3.1* 3.5 CL 107 105 107 CO2 23 27 26 BUN 23* 15 14 CREATININE 0.58* 0.51* 0.44* GLUCOSE 144* 74 153* CALCIUM 7.9* 7.8* 7.9* PROT 5.6* 6.0* 6.0* BILITOT 0.7 0.8 0.6 ALKPHOS 128* 123 119 AST 22 18 19 ALT 22 18 16 Recent Labs 04/17/242 04/18/24 0712 04/19/24 0428 WBC 7.9 8.4 9.2 HGB 11.5* 12.1* 11.6* HCT 35.4* 36.6* 35.0* PLT 77* 79* 88* LYMPHOPCT 16.8 13* 13* MONOPCT 5.5 8 8 BASOPCT 0.1 -- 1 NEUTROABS 6.0 -- -- Micro: No results for input(s): "COVID19" in the last 72 hours. 04/16/2024 0654 04/16/2024 1101 Blood culture Site #1 - Assess for effectiveness of treatment [[id number]] Blood, Venous Preliminary result Component Value Blood Culture Blood culture incubation started P 04/16/2024 0654 04/16/2024 1101 Blood culture Site #2 - Assess for effectiveness of treatment [[id number]] Blood, Venous Preliminary result Component Value Blood Culture Blood culture incubation started P 04/15/2024 1713 04/15/2024 2208 MRSA by PCR [[id number]] (Abnormal) ESwab from Nasal Final result Component Value Staphylococcus aureus Detected Abnormal mecA gene Not Detected 04/15/2024 0103 04/16/2024 1135 Urine culture [[id number]] (Abnormal) Urine, Clean Catch Preliminary result Component Value Urine Culture Normal urogenital gosia present P 50,000-90,000 CFU/mL Providencia stuartii Abnormal P 04/14/2024 1631 04/16/2024 1204 Blood culture Site #1 - Suspected Infection [[id number]] (Abnormal) Blood, Venous Preliminary result Component Value Blood Culture Proteus mirabilis Panic P Providencia stuartii Panic P Morganella morganii Panic P 04/14/2024 1631 04/16/2024 1204 Blood culture Site #2 - Suspected Infection [[id number]] (Abnormal) Blood, Venous Preliminary result Component Value Blood Culture Morganella morganii Panic P For identification and/or sensitivity, refer to culture collected on: 04/14/24 at 16:31, [id number]. This is an edited result. Previous organism was Gram-negative bacilli on 04/15/2024 at 0835 EDT. 04/14/2024 1631 04/15/2024 0828 Blood Culture Identification - Anaerobic [[id number]] (Abnormal) Blood, Venous Final result Component Value Proteus species Detected Abnormal Lines: PIV Radiography/Echo/Other: Procedure Component Value Units Date/Time FL pyelogram retrograde [[id number]] Resulted: 04/14/242216 Order Status: Completed Updated: 04/14/242216 Narrative: There is no interpretation needed for this exam. CT abdomen pelvis wo IV contrast [[id number]] Collected: 04/14/241928 Order Status: Completed Updated: 04/14/241938 Narrative: Patient Name: ANMOL LANGLEY : 1960 [facility]#: [id number] Exam Date/Time: 04/14/2024 19:28 Procedure: CT ABDOMEN PELVIS WO IV CONTRAST Ordering Provider: DICKENS RALEIGH Reason For Exam: Sepsis CT ABDOMEN AND [...] Bladder: The urinary bladder is decompressed by Hudson catheter. Within the bladder lumen, there is [...] 7:37 PM EDT XR chest 1 view [[id number]] Collected: 04/14/241650 Order Status: Completed Updated: 04/14/241652 Narrative: [facility] 1960 [id number] Exam Date/Time: 04/14/2024 16:39 Procedure: XR CHEST 1 VIEW [facility]ing [facility] Reason For Exam: sepsis INDICATION: Sepsis. VIEWS: [...] calculus. s/p cystoscopy, bilateral stent change and Hudson cath insertion on 04/14/24. Bladder stone Neurogenic bladder with chronic hudson catheter. Paraplegia. Type 2 diabetes. Plan: Pt clinically improved, was admitted sick due to septic shock due to proteus, providencia, and morganella bacteremia due to urosepsis. S/p emergent cystoscopy, bilateral stent change and Hudson cath insertion on 04/14/24. Afebrile, hemodynamically ok. Recent blood cxs -neg so far. Urine cx grew providencia, no fungi. Discontinue fluconazole. Continue meropenem through fly winder, then, tomorrow change to ertapenem (1st dose [...] for open encounter. Hospitalist Progress Note 04/19/2024 [phone]: Please page me ([phone]) for patient care issues. [phone]: Please page [facility] Hospitalist for any issues. Subjective: Admit Date: 04/14/2024 PCP: AMBROSIO MONROY DO Room#: B2-254/B2-254 A Interval History: patient admitted for hudson issues, found to have severe sepsis. No [...] Sciatica Type 2 diabetes mellitus without complication ([facility]/HCC) ([facility]) LABS: CBC: Recent Labs 04/17/24 0342 04/18/24 0712 04/19/24 0428 WBC 7.9 8.4 9.2 RBC 3.83* 3.95* 3.79* HGB 11.5* 12.1* 11.6* HCT 35.4* 36.6* 35.0* MCV 92.4 92.7 92.3 RDW 14.9 15.0 14.8 PLT 77* 79* 88* BMP: Recent Labs 04/17/2434104/18/2471104/19/24427 NA 135 140 138 K 3.2* 3.1* 3.5 CL 107 105 107 CO2 23 27 26 BUN 23* 15 14 CREATININE 0.58* 0.51* 0.44* GLUCOSE 144* 74 153* CALCIUM 7.9* 7.8* 7.9* ANIONGAP 5 7 5 LIVER PROFILE: Recent Labs 04/17/2434104/18/2471104/19/24427 AST 22 18 19 ALT 22 18 [...] Emergency Contact Information Primary Emergency Contact: Ronald Langley Mobile Relation: Sibling Secondary Emergency Contact: SUMI LANGLEY Mobile Relation: Daughter Vish DO Jonah Division of Hospitalist Medicine Inpatient Medical Services/[facility] P[facility]ER: Epic chat Hospitalist Progress Note 04/18/2024 [phone]: Please page va ([phone]) for patient care issues. [phone]: Please page [facility] Hospitalist for any issues. Subjective: Admit Date: 04/14/2024 PCP: AMBROSIO MONROY DO Room#: B2-254/B2-254 A Interval History: No overnight issues. Denies chest pain or sob. No abdominal pain, nausea, vomiting. No fevers or chills. Adult diet Regular; 5 carb choices (75 gm/meal) @[id number]@ 24HR INTAKE/OUTPUT: Intake/Output Summary (Last 24 hours) at 04/18/2024 1214 Last data filed at 04/18/2024 0500 Gross per 24 hour Intake 700 ml Output 3850 ml Net -3150 ml Past Medical History: Past Medical History: Diagnosis Date Abscess, perineum Chronic back pain Hip sprain Hyperlipidemia Hypertension Neuropathy Osteoarthritis Sciatica Type 2 diabetes mellitus without complication ([facility]/HCC) ([facility]) LABS: CBC: Recent Labs 04/16/24 0515 04/17/24 0342 04/18/24 0712 WBC 11.9* 7.9 8.4 RBC 3.91* 3.83* 3.95* HGB 12.0* 11.5* 12.1* HCT 37.2* 35.4* 36.6* MCV 95.1 92.4 92.7 RDW 15.2* 14.9 15.0 PLT 76* 77* 79* BMP: Recent Labs 04/16/24 0504/17/24 0342 04/18/24 07 NA 137 135 140 K 4.3 3.2* 3.1* CL 105 107 105 CO2 25 23 27 BUN 30* 23* 15 CREATININE 0.70 0.58* 0.51* GLUCOSE 315* 144* 74 CALCIUM 8.2* 7.9* 7.8* ANIONGAP 6 5 7 LIVER PROFILE: Recent Labs 04/16/24 0504/17/24 03404/18/24 07 AST 37 22 18 ALT 26 22 [...] Secondary Emergency Contact: GAILSUMI Mobile Relation: Daughter Harmeet Rodriguez MD Division of Hospitalist Medicine Inpatient Medical Services/[facility] PAGER: Epic chat Images from the original note were not included. [facility] - Infectious Diseases Attending Progress Note Subjective: Follow up for septic shock, bacteremia due to proteus, providencia, and morganella, complicated UTI and bilateral ureteral obstruction s/p cystoscopy, bilateral stent change and Hudson cath insertion on 04/14/24. He was alert, laying on bed, felt well, c/o chronic legs pain; denied fever, chill or any new complaints, he appeared non-toxic. He was admitted to ICU on 04/14/24 with a clogged hudson catheter and both leg pain; on presentation, he had a temp of 99.6 F with tachycardia (P 121), hypotension (BP 82/55), tachypneic (R 20-30), his BP further decreased to 63/51; CT scan of abdomen and pelvis showed bilateral ureteral obstruction with bilateral hydronephrosis, he was brought to the operating room for emergent stent placement, and a hudson catheter was placed to straight drain. He [...] place, and time. Labs: Recent Labs 04/14/24231704/15/2440604/16/24 0515 04/17/24 0342 NA -- 135 137 [...] -- Recent Labs 04/14/24 1603 04/14/24 1730 04/14/24231704/15/247 04/16/24 0515 04/17/24 0342 WBC 1.5* -- 5.4 [...] the last 72 hours. 04/16/2024 0654 04/16/2024 [facility] Blood culture Site #1 - Assess for effectiveness of treatment [[id number]] Blood, Venous Preliminary result Component Value Blood Culture Blood culture incubation started P 04/16/2024 0654 04/16/2024 1101 Blood culture Site #2 - Assess for effectiveness of treatment [[id number]] Blood, Venous Preliminary result Component Value Blood Culture Blood culture incubation started P 04/15/2024 1713 04/15/2024 2208 MRSA by PCR [[id number]] (Abnormal) ESwab from Nasal Final result Component Value Staphylococcus aureus Detected Abnormal mecA gene Not Detected 04/15/2024 0103 04/16/2024 1135 Urine culture [[id number]] (Abnormal) Urine, Clean Catch Preliminary result Component Value Urine Culture Normal urogenital gosia present P 50,000-90,000 CFU/mL Providencia stuartii Abnormal P 04/14/2024 1631 04/16/2024 1204 Blood culture Site #1 - Suspected Infection [[id number]] (Abnormal) Blood, Venous Preliminary result Component Value Blood Culture Proteus mirabilis Panic P Providencia stuartii Panic P Morganella morganii Panic P 04/14/2024 1631 04/16/2024 1204 Blood culture Site #2 - Suspected Infection [[id number]] (Abnormal) Blood, Venous Preliminary result Component Value Blood Culture Morganella morganii Panic P For identification and/or sensitivity, refer to culture collected on: 04/14/24 at 16:31, [id number]. This is an edited result. Previous organism was Gram-negative bacilli on 04/15/2024 at 0835 EDT. 04/14/2024 1631 04/15/2024 0828 Blood Culture Identification - Anaerobic [[id number]] (Abnormal) Blood, Venous Final result Component Value Proteus species Detected Abnormal Lines: PIV Radiography/Echo/Other: Procedure Component Value Units Date/Time FL pyelogram retrograde [[id number]] Resulted: 04/14/242216 Order Status: Completed Updated: 04/14/242216 Narrative: There is no interpretation needed for this exam. CT abdomen pelvis wo IV contrast [[id number]] Collected: 04/14/241928 Order Status: Completed Updated: 04/14/241938 Narrative: Patient Name: ANMOL LANGLEY : 1960 Exam Date/Time: 04/14/2024 19:28 Procedure: CT ABDOMEN PELVIS WO IV CONTRAST Ordering Provider: [facility] Reason For Exam: Sepsis CT ABDOMEN AND [...] Bladder: The urinary bladder is decompressed by Hudson catheter. Within the bladder lumen, there is [...] 7:37 PM EDT XR chest 1 view [[id number]] Collected: 04/14/241650 Order Status: Completed Updated: 04/14/241652 Narrative: Patient Name: ANMOL LANGLEY : 1960 Exam Date/Time: 04/14/2024 16:39 Procedure: [...] calculus. s/p cystoscopy, bilateral stent change and Hudson cath insertion on 04/14/24. Bladder stone Neurogenic bladder with chronic hudson catheter. Paraplegia. Type 2 diabetes. Plan: Pt sick due to septic shock due to proteus, providencia, and morganella bacteremia due to urosepsis. s/p cystoscopy, bilateral stent change and Hudson cath insertion on 04/14/24. Afebrile, hemodynamically ok. Await 7/13 blood cxs result. Urology op note says [...] for open encounter. Hospitalist Progress Note 04/17/2024 [phone]: Please page me ([phone]) for patient care issues. [phone]: Please page [facility] Hospitalist for any issues. Subjective: Admit Date: 04/14/2024 PCP: AMBROSIO MONROY DO Room#: 222-04/222-04 A Interval History: No overnight issues. Denies chest pain or sob. No abdominal pain, nausea, vomiting. No fevers or chills. Adult diet Regular; 5 carb choices (75 gm/meal) @[id number]@ 24HR INTAKE/OUTPUT: Intake/Output Summary (Last 24 hours) at 04/17/2024 0846 Last data filed at 04/17/2024 0621 Gross per 24 hour Intake 1876 ml Output 2535 ml Net -659 ml Past Medical History: Past Medical History: Diagnosis Date Abscess, perineum Chronic back pain Hip sprain Hyperlipidemia Hypertension Neuropathy Osteoarthritis Sciatica Type 2 diabetes mellitus without complication ([facility]/HCC) ([facility]) LABS: CBC: Recent Labs 04/15/24 0407 04/16/24 0515 04/17/24 0342 WBC 11.2* 11.9* 7.9 RBC 3.85* 3.91* 3.83* HGB 11.9* 12.0* 11.5* HCT 36.2* 37.2* 35.4* MCV 94.0 95.1 92.4 RDW 14.9 15.2* 14.9 PLT 107* 76* 77* BMP: Recent Labs 04/15/2440604/16/2451404/17/24 034 NA 135 137 135 K 3.6 4.3 [...] Emergency Contact Information Primary Emergency Contact: Ronald Langley Mobile Relation: Sibling Secondary Emergency Contact: SUMI LANGLEY Mobile Relation: Daughter Harmeet Rodriguez MD Division of Hospitalist Medicine Inpatient Medical Services/[facility]ER: Epic chat Images from the original note were not included. [facility] - Infectious Diseases Attending Progress Note Subjective: Follow up for septic shock, bacteremia due to proteus, providencia, and morganella, complicated UTI and bilateral ureteral obstruction s/p cystoscopy, bilateral stent change and Hudson cath insertion on 04/14/24. 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 He was admitted to ICU on 04/14/24 with a clogged hudson catheter and both leg pain; on presentation, he had a temp of 99.6 F with tachycardia (P 121), hypotension (BP 82/55), tachypneic (R 20-30), his BP further decreased to 63/51; CT scan of abdomen and pelvis showed bilateral ureteral obstruction with bilateral hydronephrosis, he was brought to the operating room for emergent stent placement, and a hudson catheter was placed to straight drain. He [...] and time. Labs: Recent Labs 04/14/24 1603 04/14/24231704/15/2440604/16/24 0515 NA 137 -- 135 137 K [...] Labs 04/14/24 1603 04/14/24 1730 04/14/24231704/15/2440604/16/24 0515 WBC 1.5* -- 5.4 11.2* 11.9* [...] #1 - Assess for effectiveness of treatment [[id number]] Blood, Venous Preliminary result Component Value Blood Culture Blood culture incubation started P 04/16/2024 0654 04/16/2024 1101 Blood culture Site #2 - Assess for effectiveness of treatment [[id number]] Blood, Venous Preliminary result Component Value Blood Culture Blood culture incubation started P 04/15/2024 1713 04/15/2024 2208 MRSA by PCR [[id number]] (Abnormal) ESwab from Nasal Final result Component Value Staphylococcus aureus Detected Abnormal mecA gene Not Detected 04/15/2024 0103 04/16/2024 1135 Urine culture [[id number]] (Abnormal) Urine, Clean Catch Preliminary result Component Value Urine Culture Normal urogenital gosia present P 50,000-90,000 CFU/mL Providencia stuartii Abnormal P 04/14/2024 1631 04/16/2024 1204 Blood culture Site #1 - Suspected Infection [[id number]] (Abnormal) Blood, Venous Preliminary result Component Value Blood Culture Proteus mirabilis Panic P Providencia stuartii Panic P Morganella morganii Panic P 04/14/2024 1631 04/16/2024 1204 Blood culture Site #2 - Suspected Infection [[id number]] (Abnormal) Blood, Venous Preliminary result Component Value Blood Culture Morganella morganii Panic P For identification and/or sensitivity, refer to culture collected on: 04/14/24 at 16:31, [id number]. This is an edited result. Previous organism was Gram-negative bacilli on 04/15/2024 at 0835 EDT. 04/14/2024 1631 04/15/2024 0828 Blood Culture Identification - Anaerobic [[id number]] (Abnormal) Blood, Venous Final result Component Value Proteus species Detected Abnormal Lines: PIV Radiography/Echo/Other: Procedure Component Value Units Date/Time FL pyelogram retrograde [[id number]] Resulted: 04/14/242216 Order Status: Completed Updated: 04/14/242216 Narrative: There is no interpretation needed for this exam. CT abdomen pelvis wo IV contrast [[id number]] Collected: 04/14/241928 Order Status: Completed Updated: 04/14/241938 Narrative: Patient Name: ANMOL LANGLEY : 1960 Exam Date/Time: 04/14/2024 19:28 Procedure: CT ABDOMEN PELVIS WO IV CONTRAST [facility] Reason For Exam: Sepsis CT ABDOMEN AND [...] Bladder: The urinary bladder is decompressed by Hudson catheter. Within the bladder lumen, there is [...] 7:37 PM EDT XR chest 1 view [[id number]] Collected: 04/14/241650 Order Status: Completed Updated: 04/14/241652 Narrative: [facility] 1960 [id number] Exam Date/Time: 04/14/2024 16:39 Procedure: XR CHEST 1 VIEW Ordering Provider: EMS, [facility] Reason For Exam: sepsis INDICATION: Sepsis. [...] calculus Bladder stone Neurogenic bladder with chronic hudson catheter. Paraplegia. Type 2 diabetes. Plan: Pt sick due to septic shock due to proteus, providencia, and morganella bacteremia due to urosepsis. s/p cystoscopy, bilateral stent change and Hudson cath insertion on 04/14/24. Afebrile, off pressor. [...] original note were not included. OCCUPATIONAL THERAPY [facility]'s Name/MRN: Anmol Langley ([id number]) Date: 04/16/2024 OT evaluation and treat orders received. PT spoke to patient at bedside. Pt is from [facility] and is paraplegic with everett lift to electric w/c. Pt also requires assist with ADLs. Pt states receives very minimal therapy services at [facility]. Pt has no current acute OT needs and is at baseline LOF. Rec return to [facility]. Chelita Blanc OT ICU Progress Note Name: Anmol Langley : 1960(63 y.o.) Date: 04/16/24 Team: MICU Chief Complaint: obstructed hudson catheter, septic shock Subjective: Hospital Summary: 63 yoM with history of paraplegia after lumbar surgeries, [facility] resident, history of recurrent UTIs in setting of chronic hudson catheter. Admitted with clogged urinary cathter. Found to be in septic shock with bilateral hydronephrosis, 3.4x3.1 cm calcified stone in the bladder. 04/14: taken emergently to the OR by urology and underwent cystoscopy, pyelogram, bilateral ureteral stent placement. 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 Grimm. Started on broad spectrum abx as well [...] index is 25.66 kg/m . I/O: 04/15 700 - 04/16 659 In: 1836.3 [I.V.:86.3] Out: [...] patient does not have a central line Hudson Indications: Neurogenic bladder or chronic urinary retention [...] Normal [] Scar/Lesion/Mass Inspection of teeth/lips/gums Dentition: [x]Ruby Teeth []Dentures Lips/Gums: [x]Intact []Lesion Present Mucosa: [][place] []Moist [x]Dry Neck: External Appearance Overall Appearance: [...] within last 24 hours- BMP: Recent Labs 04/14/24160204/15/2440604/16/24 0515 NA 137 135 137 K 3.9 3.6 4.3 CL 102 105 105 CO2 19* 19* 25 BUN 21* 25* 30* CREATININE 1.24 1.01 0.70 CALCIUM 9.0 7.9* 8.2* MG -- 1.7 2.0 PHOS -- 3.3 2.7 LFTs: Recent Labs 04/14/24 16004/14/24195504/15/24 0407 04/16/24 0515 AST 25 -- 36 37 ALT 22 -- 34 26 PROT 7.8 -- 5.5* 6.0* ALBUMIN 4.0 -- 2.6* 2.8* BILITOT 1.4* -- 1.1 0.9 ALKPHOS 167* -- 168* 130* LIPASE 12* <10* -- -- Glucose: Recent Labs 04/14/24 16004/14/24 2212 04/14/24 2220 04/14/24 2332 04/15/24 0407 04/15/24 0608 04/15/24 1229 04/15/24 1732 04/15/24 2020 04/16/24 0515 04/16/24 0803 GLUCOSE 259* -- -- -- 286* -- -- -- -- 315* -- POCGLU -- 226* 210* 223* -- 285* 287* 342* 390* -- 323* BHYDRXBUT 1.08 -- -- -- -- -- -- -- -- -- -- Procal: Recent Labs 04/14/242317 PROCAL 27.06* CBC: Recent Labs 04/14/24231704/15/24 04004/16/24 0515 WBC 5.4 11.2* 11.9* HGB 12.4* 11.9* 12.0* HCT 39.1* 36.2* 37.2* PLT 117* 107* 76* MCV 97.0 94.0 95.1 RDW 14.8 14.9 15.2* ABGs: Recent Labs 04/14/24 1730 [id number] Room Air Lactic Acid: Recent Labs 04/14/24231704/15/24 0407 04/15/24 0844 LACTATE 4.9* 3.6* 2.0 INR: Recent [...] creatinine, and vancomycin levels interfaced automatically to [employer] and data has been analyzed and interpreted. [...] assess Fluid Accumulation: Mild Extremities (+2 ble) Associate Broker Strength: Not Performed Nutrition Assessment: per MD-pISTORY OF PRESENT ILLNESS: Anmol is a 63 y.o. male with , recurrent UTI at [facility] who presented to the ED today due to bilateral leg pain and clogged hudson catheter. Increased pain in butt and back [...] WBC 1.5, er case manger-npatient status from [facility] with sepsis. Urology consulted due to bilateral ureteral obstructing calculi. . OR yesterday. For cystoscopy, bilateral ureteral stent placement placement and hudson catheter change. BC obtained and are positive. Urine cultures obtained and are pending. ID following. Is receiving iv antibiotic therapy. Levophed drip weaned off this afternoon. Met with patient. Introduced myself and explained my role. Patient with history of paraplegia and states has been at [facility] for a year and wishes to [...] On: Kcal/kg Weight Used for Energy Requirements: [place] Weight for Energy Calculation (kg): 82.41 kg Total Energy Requirements (kcals/day): 28-30 or 7- 24 72 Weight Used for Protein Requirements: [place] Weight in Kg Used for Protein Requirements: [...] (183 lb) % Weight Change (Calculated): 12.2 [place] Body Weight (lbs) (Calculated): 196 lbs [place] Body Weight (Kg) (Calculated): 89 kg % [place] Body Weight (Calculated): 104.7 % BMI (kg/m2) (Calculated): 25.7 Weight Adjustment For: Paraplegia % Weight Adjustment: 7.5 - Paraplegia Total Adjusted Percentage (Calculated): 7.5 Adjusted [place] Body Weight (lbs) (Calculated): 181.3 lbs Adjusted [place] Body Weight (kg) (Calculated): 82.41 kg Adjusted [...] Oral Nutrition Supplement Isabel Lieberman RD Contact: *[phone] or secure chat ICU Progress Note Name: Anmol Langley : 1960(63 y.o.) Date: 04/15/24 Team: MICU Chief Complaint: obstructed hudson catheter, septic shock Subjective: Hospital Summary: 63 yoM with history of paraplegia after lumbar surgeries, [facility] resident, history of recurrent UTIs in setting of chronic hudson catheter. Admitted with clogged urinary cathter. Found to be in septic shock with bilateral hydronephrosis, 3.4x3.1 cm calcified stone in the bladder. 04/14: taken emergently to the OR by urology and underwent cystoscopy, pyelogram, bilateral ureteral stent placement. 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 Grimm. Started on broad spectrum abx as well [...] Pulse 101 (04/15/24 0832) Resp 16 (04/15/24 0832) SpO2 97 % (04/15/24831) Weight 93.1 kg (205 lb 4.8 oz) (04/14/24 1555) BMI Body mass index is 25.66 kg/m . I/O: 04/14 700 - 04/15 659 In: 3791.8 [I.V.:87.8] Out: 295 [Urine:295] Ventilator: Oxygen Delivery: O2 Flow Rate (L/min): 2 L/min Invasive Lines / Tubes / Drains: Peripheral IV 04/14/24 Anterior;Right Antecubital (Active) Number of days: 0 Peripheral IV 04/14/24 Anterior;Right Forearm (Active) Number of days: 0 Urethral Catheter Coude (Active) Number of days: 0 Central Line Indication: NA - patient does not have a central line Hudson Indications: Neurogenic bladder or chronic urinary retention [...] Normal [] Scar/Lesion/Mass Inspection of teeth/lips/gums Dentition: [x]Ruby Teeth []Dentures Lips/Gums: [x]Intact []Lesion Present Mucosa: [][place] []Moist [x]Dry Neck: External Appearance Overall Appearance: [...] 14.8 -- 14.8 14.9 ABGs: Recent Labs 04/14/241729 [id number] Room Air Lactic Acid: Recent Labs 04/14/24 18504/14/24231704/15/24406 LACTATE 3.9* 4.9* 3.6* INR: Recent Labs 04/14/242004 INR 2.7* Cardiac Injury Profile: Recent Labs 07/11/24 1603 TROPONINI <0.012 Labs in Last 3 [...] original note were not included. PHYSICAL THERAPY [facility] Name/MRN: Anmol Langley ([id number]) Date: 04/15/2024 PT evaluation and treat orders received. Spoke to patient at bedside. Pt is from [facility] and is paraplegic with everett lift to electric w/c. Pt states receives very minimal therapy services at [facility]. Pt has no current acute PT needs and is at baseline LOF. Rec return to [facility]. Nakita Kwan PT Images from the original note were not included. [facility] Urology Inpatient Progress Note 04/15/2024 at 9:33 AM PATIENT NAME: Anmol Langley DATE OF : 1960 ADMISSION DATE: 04/14/2024 3:51 PM Room#: 222-04/222-04 A Assessment 63-year-old male with urosepsis, bilateral ureteral obstructing calculi, and bladder calculus POD#1 s/p cystoscopy, bilateral ureteral stent placement and hudson catheter change Plan Continue to trend WBC; increased today. WBC 11.2 (5.4) Lactic acid improving. Lactic acid 3.6 (5.1) Blood and urine culture pending Continue broad-spectrum antibiotics pending blood and urine culture results. Continue to monitor renal function; improved today. Creatinine 1.01 (1.24) Continue Hudson catheter to straight drain. Patient has chronic Hudson catheter so will remain in place upon [...] changes in patient's urologic status. Joe Hammer, ZACARIAS, GRINDING MACHINE OPERATOR PORTABLE, CUNP [facility] Urology Subjective: Interval History: No overnight issues. [...] Sciatica Type 2 diabetes mellitus without complication ([facility]) ([facility]) Objective: Vitals: BP 108/67 Pulse 92 Temp [...] There is no abdominal tenderness. Genitourinary: Comments: Hudson catheter in place draining dark yellow output [...] mg, 400 mg, IntraVENous, q24h, Brad Mujica, GRINDING MACHINE OPERATOR PORTABLE - BEADER TENDER, Stopped at 04/15/24 0254 glucagon (human recombinant) injection 1 mg, 1 mg, IntraMUSCular, PRN, Orquidea Marti MD glucose oral gel 15 g, 15 g, Oral, PRN, Orquidea Marti MD HYDROmorphone (Dilaudid) injection 1 mg, 1 mg, IntraVENous, q4h PRN, Dashawn Grimm MD [Held by provider] insulin glargine (Lantus) [...] mg, 0.4 mg, IntraVENous, q5 min PRN, Dashawn Grimm MD norepinephrine (Levophed) 4 mg in 0.9% sodium chloride 250 mL infusion (Ylb-Ybvsel-Vtihd) (premix), 2-50 mcg/min, IntraVENous, Continuous, Pedro Luis Matos MD, Last Rate: 18.75 mL/hr at 04/15/24 07, 5 mcg/min at 04/15/24 07 ondansetron ODT (Zofran-ODT) disintegrating tablet 4 mg, [...] portions of this chart were dictated using [employer] voice recognition software. It is possible that typos and/or omissions and/or substitutions of words and/or phrases may exist, which may alter the intended meaning of the dictating provider. On this date 04/15/2024 I have spent 35 minutes qgqb-fq-tamu time, reviewing previous notes, test results and [...] creatinine, and vancomycin levels interfaced automatically to [employer] and data has been analyzed and interpreted. [...] Ongoing ICU care/mgmt documented in this encounter [facility] 04-17-2024 Consult note Associated Order (s): PHARMACY TO DOSE VANCO Vancomycin therapy has been discontinued by Dr. Moyer on 04-17. Thank you for the consult. Pharmacy signing off for vancomycin dosing. Carmel Collins [facility], Date: 04/17/24 Time: 1:40 PM Associated Order(s): IP CONSULT TO INFECTIOUS DISEASES Images from the original note were not included. [facility] - Infectious Diseases Attending Consult Note Reason for Consult: Septic shock and proteus bacteremia, Bilateral ureteral obstruction s/p cystoscopy, bilateral stent change and Hudson cath insertion on 04/14/24. History of Present Illness: 63 y/o male was admitted to ICU on 04/14/24 with a clogged hudson catheter and both leg pain; on presentation, he had a temp of 99.6 F with tachycardia (P 121), hypotension (BP 82/55), tachypneic (R 20-30), his BP further decreased to 63/51; CT scan of abdomen and pelvis showed bilateral ureteral obstruction with bilateral hydronephrosis, he was brought to the operating room for emergent stent placement, and a hudson catheter was placed to straight drain. He [...] Type 2 diabetes mellitus without complication (CMS/HCC) ([facility]) Past Surgical History: Past Surgical History: Procedure Laterality Date ANKLE SURGERY Right He has a titanium plate to the right ankle KNEE SURGERY ACL LAMINECTOMY Left 10/24/2020 LEFT BILATERAL L2-3-4-5 DECOMPRESSION performed by Opal Ayala MD at [facility] OR ORTHOPEDIC SURGERY US PLACE URETAL STENT PERC PRE-EXIST TRACT S&I (HISTORICAL) Bilateral 04/14/2024 Dr. Grimm/Bashir Current Medications: Current Facility-Administered Medications Medication Dose [...] mg IntraVENous q24h Brad Mujica APRN - BEADER TENDER Stopped at 04/15/24 0254 glucagon (human recombinant) injection 1 mg 1 mg IntraMUSCular PRN Orquidea Marti MD glucose oral gel 15 g 15 g Oral PRN Orquidea Marti MD HYDROmorphone (Dilaudid) injection 1 mg 1 mg IntraVENous q4h PRN Dashawn Grimm MD [Held by provider] insulin glargine (Lantus) injection 45 Units 45 Units SubCUTAneous Nightly Orquidea Marti MD Insulin Lispro (Humalog) injection 0-6 Units 0-6 Units SubCUTAneous q6h Brad Mujica APRN - BEADER TENDER 3 Units at 04/15/24 1334 Insulin Lispro (Humalog) injection 0-6 Units 0-6 Units SubCUTAneous TID Pedro Luis Matos MD And Insulin Lispro [...] mg 0.4 mg IntraVENous q5 min PRN Dashawn Grimm MD norepinephrine (Levophed) 4 mg in 0.9% sodium chloride 250 mL infusion (Lqt-Awusvw-Tpjiw) (premix) 2-50 mcg/min IntraVENous Continuous Pedro Luis [...] Resource Strain: Low Risk (04/24/2023) Received from [facility], [facility] Overall Financial Resource Strain (CARDIA) Difficulty [...] -- 73 13 97 % -- -- 04/15/241201 132/83 -- -- 70 12 98 % -- -- 04/15/24 1200 -- -- -- 73 14 98 % -- -- 04/15/24 115 -- -- -- 73 13 98 % -- -- 04/15/24 115 -- -- -- 70 12 99 % -- -- 04/15/24 115 -- -- -- 77 12 97 % -- -- 04/15/24 1156 -- -- -- 73 (!) 11 97 % -- -- 04/15/24 1155 -- -- -- 70 (!) 10 97 % -- -- 04/15/24 115 -- -- -- 70 (!) 10 97 % -- -- 04/15/24 115 -- -- -- 72 (!) 10 98 % -- -- 04/15/24 115 -- -- -- 75 (!) 11 100 [...] 81 20 97 % -- -- 04/15/24 113 -- -- -- 70 (!) 11 97 [...] 77 12 95 % -- -- 04/15/24 0959 -- -- -- 78 13 95 % -- -- 04/15/24 0958 -- -- -- 80 14 95 % [...] -- 85 15 96 % -- -- 04/15/24914 -- -- -- 87 16 96 % -- -- 04/15/24913 -- -- -- 83 12 95 % [...] -- 91 16 94 % -- -- 04/15/24 0842 -- -- -- 90 16 94 % -- -- 04/15/24 0841 -- -- -- 90 15 95 % -- -- 04/15/24 0840 -- -- -- 91 18 97 % -- -- 04/15/24 0839 -- -- -- 91 15 95 % -- -- 04/15/24 0838 -- -- -- 91 16 95 % [...] -- 85 14 94 % -- -- 04/15/2424 -- -- -- 84 (!) 11 95 % -- -- 04/15/2423 -- -- -- 83 12 95 % -- -- 04/15/24821 -- -- -- 84 12 95 % -- -- 04/15/2421 -- -- -- 86 13 94 % -- -- 04/15/24819 -- -- -- 86 12 94 % -- -- 04/15/24818 -- -- -- 87 12 95 % -- -- 04/15/2418 -- -- -- 86 12 95 % -- -- 04/15/24 0817 -- -- -- 86 12 95 % -- -- 04/15/24 0816 108/67 -- -- 86 12 95 % -- -- 04/15/2415 -- -- -- 87 12 95 % -- -- 04/15/2414 -- -- -- 87 14 95 % -- -- 04/15/2413 -- -- -- 86 12 95 % -- -- 04/15/2412 -- -- -- 87 12 95 % -- -- 04/15/2411 -- -- -- 86 13 95 % -- -- 04/15/2410 -- -- -- 87 12 95 % -- -- 04/15/2409 -- -- -- 87 12 95 % -- -- 04/15/2408 -- -- -- 87 12 94 % -- -- 04/15/24806 -- -- -- 86 12 95 % -- -- 04/15/2406 -- -- -- 88 13 95 % -- -- 04/15/24 0805 -- -- -- 87 13 95 % -- -- 04/15/2404 -- -- -- 87 (!) 11 95 [...] -- 87 13 95 % -- -- 07730 -- -- -- 88 14 95 % [...] 90 13 95 % -- -- 04/15/24716 105/ -- -- 88 12 95 % -- -- 04/15/24715 -- -- -- 87 13 95 % -- -- 04/15/24713 -- -- -- 87 13 95 % -- -- 04/15/24712 -- -- -- 86 13 95 % -- -- 04/15/24711 -- -- -- 83 13 94 % -- -- 04/15/24710 104/ -- -- 86 13 95 % -- -- 04/15/24709 -- -- -- 86 13 95 % [...] 13 92 % -- -- 04/15/24700 (!) 63/49 -- -- 90 13 93 % -- -- 04/15/24699 -- -- -- 89 14 92 % -- -- 04/15/2431 (!) 63/51 -- -- 92 13 91 % -- -- 04/15/2408 (!) 64/49 -- -- 95 18 93 [...] hours. 04/15/2024 0103 04/15/2024 0107 Urine culture [[id number]] Urine, Clean Catch In process Component Value No component results 04/14/2024 1631 04/15/2024 0835 Blood culture Site #1 - Suspected Infection [[id number]] (Abnormal) Blood, Venous Preliminary result Component Value Blood Culture Gram-negative bacilli Panic P 04/14/2024 1631 04/15/2024 0835 Blood culture Site #2 - Suspected Infection [[id number]] (Abnormal) Blood, Venous Preliminary result Component Value Blood Culture Gram-negative bacilli Panic P 04/14/2024 1631 04/15/2024 0828 Blood Culture Identification - Anaerobic [[id number]] (Abnormal) Blood, Venous Final result Component Value Proteus species Detected Abnormal Lines: PIV Radiography/Echo/Other: CT abdomen pelvis wo IV contrast [[id number]] Collected: 04/14/241928 Order Status: Completed Updated: 04/14/241938 Narrative: Patient Name: ANMOL LANGLEY : 1960 Exam Date/Time: 04/14/2024 19:28 Procedure: CT ABDOMEN PELVIS WO IV CONTRAST Ordering Provider: [facility] Reason For Exam: Sepsis CT ABDOMEN AND [...] Bladder: The urinary bladder is decompressed by Hudson catheter. Within the bladder lumen, there is [...] 7:37 PM EDT XR chest 1 view [[id number]] Collected: 04/14/241650 Order Status: Completed Updated: 04/14/241652 Narrative: Patient Name: ANMOL LANGLEY : 1960 Exam Date/Time: 04/14/2024 16:39 Procedure: XR CHEST 1 VIEW Ordering Provider: EMS, [facility] Reason For Exam: sepsis INDICATION: Sepsis. [...] calculus Bladder stone Neurogenic bladder with chronic hudson catheter. Paraplegia. Type 2 diabetes. Plan: Pt sick due to septic shock due to Proteus bacteremia due to urosepsis. s/p cystoscopy, bilateral stent change and Hudson cath insertion on 04/14/24. Afebrile but remained [...] encounter. Associated Order(s): IP CONSULT TO HOME SECURITY PROFESSIONAL This patient is not a new diabetic or new to insulin therapy and therefore does not meet our current criteria for the inpatient diabetes education service. The clinical bedside RN should provide any necessary diabetes education using the Diabetes Survival Skills Booklet available on the unit. Please consider a dietary consult if appropriate and if not already ordered. Contact [facility] to [facility] pharmacist for assistance if a new glucometer or any associated supplies are needed. Thank you. Karlos PAVON,BSN,[facility] Images from the original note were not included. Pharmacy Managed Vancomycin Dosing Service Consult Note Consult Date: 04/14/24 Patient Name: Anmol Langley Allergies: Patient has no known allergies. Age: [...] creatinine, and vancomycin levels interfaced automatically to [employer] and data has been analyzed and interpreted. [...] included. Urology Inpatient Consultation Patient Name: Anmol Langley Date of : 1960 Admission Date: 04/14/2024 3:51 PM Today's Date: 04/14/2024 HISTORY OF PRESENT ILLNESS: The patient is a 63 y.o. male with sepsis anuria and bilateral ureteral obstruction. He presented to the er due to clogged hudson. Data Afebrile [id number]/55-76 Pulse-120 Creat-1.24 Co2-19 Lactic 5.1>>3.9 Wbc 1.5 [...] LEFT BILATERAL L2-3-4-5 DECOMPRESSION performed by Opal Ayala MD at [facility] OR ORTHOPEDIC SURGERY ALLERGIES: No Known Allergies [...] Resource Strain: Low Risk (04/24/2023) Received from [facility] Overall Financial Resource Strain (CARDIA) Difficulty of Paying Living Expenses: Not hard at all Food Insecurity: No Food Insecurity (04/24/2023) Received from [facility] Hunger Vital Sign Worried About Running Out of Food in the Last Year: Never true Ran Out of Food in the Last Year: Never true Transportation Needs: No Transportation Needs (04/24/2023) Received from [facility] PRAPARE - Transportation Lack of Transportation (Medical): No Lack of Transportation (Non-Medical): No Physical Activity: Not on file Stress: Not on file Social Connections: Not on file Intimate Partner Violence: Not on file Housing Stability: High Risk (04/24/2023) Received from [facility] Housing Stability Vital Sign Unable to Pay for Housing in the Last Year: No Number of Places Lived in the Last Year: 4 In the last 12 months, was there a time when you did not have a steady place to sleep or slept in a residential (including now)?: No Review of Systems Constitutional: Positive for diaphoresis and fatigue. Negative for fever. Respiratory: Negative for shortness of breath. Gastrointestinal: Negative for abdominal distention and abdominal pain. Genitourinary: Negative for flank pain and hematuria. Chronic hudson due to ngb Hudson plugged today Physical Exam: Vitals: 12/29/2023 2:56 [...] tenderness. Genitourinary: Penis: Normal. Testes: Normal. 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 Thank you for allowing me to participate in the care of your patient Dashawn Grimm MD 04/14/24 8:41 PM Images from the original note were not included. Internal Medicine: MICU Initial Consult Name: Anmol Franco Given : 1960(63 y.o.) Date: 04/14/24 Attending: Dr. Hooker Subjective: Chief Complaint: UTI HPI: This is a 63 year old paraplegic patient, history of recurrent UTI at [facility] who presented to the ED today due to bilateral leg pain and clogged hudson catheter. This was replaced in the ED [...] Type 2 diabetes mellitus without complication (CMS/HCC) ([facility]) Past Surgical History: Procedure Laterality Date ANKLE SURGERY Right He has a titanium plate to the right ankle KNEE SURGERY ACL LAMINECTOMY Left 10/24/2020 LEFT BILATERAL L2-3-4-5 DECOMPRESSION performed by Opal Ayala MD at [facility] OR ORTHOPEDIC SURGERY No family history on [...] Resource Strain: Low Risk (04/24/2023) Received from [facility], [facility] Overall Financial Resource Strain (CARDIA) Difficulty of Paying Living Expenses: Not hard at all Food Insecurity: No Food Insecurity (04/24/2023) Received from [facility] Hunger Vital Sign Worried About Running Out of Food in the Last Year: Never true Ran Out of Food in the Last Year: Never true Transportation Needs: No Transportation Needs (04/24/2023) Received from [facility], [facility] PRAPARE - Transportation Lack of Transportation (Medical): No Lack of Transportation (Non-Medical): No Physical Activity: Not on file Stress: Not on file Social Connections: Not on file Intimate Partner Violence: Not on file Housing Stability: High Risk (04/24/2023) Received from [facility], [facility] Housing Stability Vital Sign Unable to Pay for Housing in the Last Year: No Number of Places Lived in the Last Year: 4 In the last 12 months, was there a time when you did not have a steady place to sleep or slept in a residential (including now)?: No No Known Allergies Prior [...] Normal [] Scar/Lesion/Mass Inspection of teeth/lips/gums Dentition: []Ruby Teeth []Dentures Lips/Gums: []Intact []Lesion Present Mucosa: [][place] [x]Moist []Dry Neck: External Appearance Overall Appearance: [...] 14.8 -- ABGs: Recent Labs 04/14/24 1730 [id number] Room Air Lactic Acid: Recent Labs 04/14/24 [...] Assessment: Septic shock, likely due to UTI/obstructed hudson catheter in a patient with a chronic [...] Consider meropenem. \\ documented in this encounter [facility] 04-15-2024 Telephone encounter Note SURGERY SCHEDULING Surgeon: Dr. Dashawn rGimm PROCEDURE: Cystoscopy, possible cystolitholapaxy, bilateral ureteroscopy, bilateral laser lithotripsy, bilateral ureteral stent change - Special request: Astrid laser DIAGNOSIS: Bladder calculus, bilateral ureteral stones FACILITY: [facility] or [facility] DETAILS: OUTPT ANESTHESIA: GENERAL TIME REQUESTED: 2hr DATE REQUESTED: Must be minimum of 2 weeks from today due to infection SURGERY ORDERS: Already placed by Joe Hammer NP on 04/15/2024 POST OP FOLLOW UP: cysto stent removal 2 wks [facility] 04-15-2024 History and physical note Images from the original note were not included. Attending History and Physical Admit Date: 04/14/2024 PCP: AMBROSIO MONROY DO CHIEF COMPLAINT: UTI Reason for Admission: Seps History Obtained From: patient HISTORY OF PRESENT ILLNESS: Anmol is a 63 y.o. male with , recurrent UTI at [facility] who presented to the ED today due to bilateral leg pain and clogged hudson catheter. Increased pain in butt and back [...] Type 2 diabetes mellitus without complication (CMS/HCC) ([facility]) Past Surgical History: Past Surgical History: Procedure Laterality Date ANKLE SURGERY Right He has a titanium plate to the right ankle KNEE SURGERY ACL LAMINECTOMY Left 10/24/2020 LEFT BILATERAL L2-3-4-5 DECOMPRESSION performed by Opal Ayala MD at [facility] OR ORTHOPEDIC SURGERY PLACE URETAL STENT PERC PRE-EXIST TRACT S&I (HISTORICAL) Bilateral 04/14/2024 Dr. Grimm/Bashir Social History: Social History Socioeconomic History Marital [...] Resource Strain: Low Risk (04/24/2023) Received from [facility] Overall Financial Resource Strain (CARDIA) Difficulty of Paying Living Expenses: Not hard at all Food Insecurity: No Food Insecurity (04/24/2023) Received from [facility] Hunger Vital Sign Worried About Running Out of Food in the Last Year: Never true Ran Out of Food in the Last Year: Never true Transportation Needs: No Transportation Needs (04/24/2023) Received from [facility] PRAPARE - Transportation Lack of Transportation (Medical): No Lack of Transportation (Non-Medical): No Physical Activity: Not on file Stress: Not on file Social Connections: Not on file Intimate Partner Violence: Not on file Housing Stability: High Risk (04/24/2023) Received from [facility] Housing Stability Vital Sign Unable to Pay for Housing in the Last Year: No Number of Places Lived in the Last Year: 4 In the last 12 months, was there a time when you did not have a steady place to sleep or slept in a residential (including now)?: No Family History: No family [...] of the patient was discussed with Dr. Dashawn Grimm APRN, who stated, in summary: patient will [...] Emergency Contact Information Primary Emergency Contact: Ronald Langley Mobile Relation: Sibling Secondary Emergency Contact: Leyla Langley Relation: Spouse [employer] Anmol Franco Gail : 1960 Primary Care Physician: AMBROSIO MONROY DO The patient and/or family/surrogate voluntarily agreed to participate in ACP services. Patient s cognitive capacity: intact Code Status: [X] [FULL CODE - Continue all advanced life support: CPR,intubation,invasive procedures] [_] [DNR-CCA - DO NOT do CPR, intubation] [_] [DNR-BROACHING MACHINE REPAIRER - Comfort care only] [_] DNR form [was/was not] signed Summary of discussion: The patient health care POA/ surrogate is the following: Leyla Langley . [Condition that instigated the ACP on [...] Orquidea Marti MD Division of Hospitalist Medicine [facility] documented in this encounter [facility] 04-14-2024 Emergency department Note Both sets of blood cultures obtained from each PIV when started. Samples labeled and at bedside in case BC ordered Leyla Mendoza RN 04/14/24 1643 Patient arrives via EMS from [facility] with c/o Hudson catheter not draining, and Bi-Lateral Leg Pain. After triage assessment Hudson catheter is draining. EMERGENCY DEPARTMENT ENCOUNTER Pt Name: Anmol Langley Birthdate 1960 Date of evaluation: 04/14/2024 ED Provider: Ene Dickens MD CHIEF COMPLAINT Chief Complaint Patient presents with Leg Pain HISTORY OF PRESENT ILLNESS (Location/Symptom, Timing/Onset, Context/Setting, Quality, Duration, Modifying Factors, Severity) Note limiting factors. I wore appropriate PPE for the entirety of this encounter. HPI Anmol Langley is a 63 y.o. who presents to the emergency department with a chief complaint of a blocked Hudson catheter. He is paraplegic and is staying [...] LEFT BILATERAL L2-3-4-5 DECOMPRESSION performed by Opal Ayala MD at [facility] OR ORTHOPEDIC SURGERY CURRENT MEDICATIONS Previous Medications [...] Resource Strain: Low Risk (04/24/2023) Received from [facility] Overall Financial Resource Strain (CARDIA) Difficulty of Paying Living Expenses: Not hard at all Food Insecurity: No Food Insecurity (04/24/2023) Received from [facility] Hunger Vital Sign Worried About Running Out of Food in the Last Year: Never true Ran Out of Food in the Last Year: Never true Transportation Needs: No Transportation Needs (04/24/2023) Received from [facility] PRAPARE - Transportation Lack of Transportation (Medical): No Lack of Transportation (Non-Medical): No Housing Stability: High Risk (04/24/2023) Received from [facility] Housing Stability Vital Sign Unable to Pay for Housing in the Last Year: No Number of Places Lived in the Last Year: 4 In the last 12 months, was there a time when you did not have a steady place to sleep or slept in a residential (including now)?: No SCREENINGS PHYSICAL EXAM ED Triage Vitals [04/14/24 1555] Temp Heart Rate Resp BP 37.6 C (99.6 F) (!) 121 20 -- SpO2 Temp Source Heart Rate Source Patient Position 99 % Oral Monitor Lying BP Location FiO2 (%) Left arm -- Epdkpvk-eyja-ggcoewksl, slightly toxic-appearing HEENT- atraumatic, normocephalic Neck- no [...] Culture. Procedure Abnormality Status --------- ------ Complete Urinalysis[[id number]] Please view results for these tests on [...] mEq (50 mEq IntraVENous Given 04/14/24 175) SEP-1 CORE MEASURE DATA SIRS Criteria Sepsis [...] Source: Unknown Reassessment exam: patient admitted Ene Dickens MD EKG interpreted by me: 04-14-2024. Time 1611. Rate 119 sinus tachycardia. Normal axis. DE interval 154, QRS 90, QTc 473. No STEMI. Discussions with other clinicians: ICU, about patient. Hospitalist, about admission. Urologist, about patient. Medical conditions impacting care: paraplegia Social determinants of health affecting care: resides at care facility Escalation of care, appropriate for: Admission versus ICU MDM: 63-year-old male with paraplegia presenting with blocked Hudson catheter. He was slightly toxic appearing. He [...] contact the dictating provider for clarification.) Ene Dickens MD (electronically signed) Emergency Medicine Physician Ene Dickens MD 04/14/242002 Ene Dickens MD 04/14/242003 documented in this encounter [facility] 04-13-2024 Telephone encounter Note Called pt on his room number but unable to reach him or leave a message. I called nursing staff at the [place] where he lives and was able to leave a message with nursing regarding his MRI findings and that I would like to speak with him and recommendations to schedule visit with SCI rehab and spine surgery. Timmy Martinez DO [facility] 04-06-2024 Telephone encounter Note Telephoned [facility] pt at dinner and office assistant receptionist states she cannot pull pt away from dinner. [facility] 04-06-2024 Telephone encounter Note Called pt regarding his MRI, which showed: IMPRESSION: Acute-subacute sacral insufficiency fracture at S2. Postoperative and degenerative changes of the lumbar spine with linear granulation tissue at L2-3 and tethering of the cauda equina suggesting sequelae of chronic arachnoiditis. No evidence of osteomyelitis discitis or epidural abscess. He was currently out of the longterm where he lives, but I was able [...] to the above findings.He does not have MeUnd[employer] set up to message. Timmy Martinez DO [facility] 02-10-2024 Instructions Timym Martinez DO - 02/10/2024 1:53 PM EDT - xrays of the low back - can schedule the MRI of the lumbar spine - I recommend seeing one of my colleagues in the spinal cord injury clinic documented in this encounter [facility] 02-10-2024 History of Present illness Narrative Physical Medicine [facility] Rehabilitation [facility] Consult 02/10/2024 Chief Complaint: Low back pain HPI: Anmol Langley is a pleasant 63 year old male [...] currently in a nursing facility[facility]. Bladder management is via Hudson catheter. Bowel management with suppositories per his [...] canal stenosis, as detailed above. Impression: Anmol Langley is a 63 year old male with: [...] in the spinal cord injury clinic for assisted SCI related management. Timmy Martinez DO [facility] Medicine [facility] Rehabilitation Vitals not obtained per provider's instructions. documented in this encounter [facility] 01-29-2024 History of Present illness Narrative Images from the original note were not included. [facility] [address] [place] [address] Dept: [phone] Dept Chief Complaint Patient presents with Pain Pt is here for pain in both legs. He states he has "jolts"of pain in his legs as well as a burning sensation. He was put on Lyrica which he states is not working. SUBJECTIVE HPI: Anmol Langley is a 63 y.o. year old here [...] Type 2 diabetes mellitus without complication (CMS/HCC) ([facility]) Social History Socioeconomic History Marital status: Spouse [...] LEFT BILATERAL L2-3-4-5 DECOMPRESSION performed by Opal Ayala MD at [facility] OR ORTHOPEDIC SURGERY Current Outpatient Medications Medication [...] follow-ups on file. documented in this encounter [facility] 12-29-2023 History of Present illness Narrative Images from the original note were not included. [facility] [address] [place] [address] Dept: [phone] Dept Chief Complaint Patient presents with New Patient Leg Pain Pt states having pain on his paralyzed legs, pain rate 8/10. SUBJECTIVE HPI: Anmol Langley is a 63 y.o. year old here [...] Pressure injury of coccygeal region, stage 3 ([facility]) 04/20/2024 Septic shock (HCC) 04/14/2024 Lumbar stenosis [...] Type 2 diabetes mellitus without complication (CMS/HCC) ([facility]) Urinary calculus, unspecified UTI (urinary tract infection) [...] Resource Strain: Low Risk (04/24/2023) Received from [facility], [facility] Overall Financial Resource Strain (CARDIA) Difficulty [...] LEFT BILATERAL L2-3-4-5 DECOMPRESSION performed by Opal Ayala MD at [facility] OR ORTHOPEDIC SURGERY Right removal of hardware ankle US PLACE URETAL STENT PERC PRE-EXIST TRACT S&I (HISTORICAL) Bilateral 04/14/2024 Dr. Grimm/Bashir Current Outpatient Medications Medication Sig Dispense Refill [...] follow-ups on file. documented in this encounter [facility] 09-08-2023 Telephone encounter Note Called and left message for doug to call to schedule patient a new patient appointment [facility] 09-08-2023 Miscellaneous Notes Called and left message for doug to call to schedule patient a new patient appointment Name of caller: Doug Contact phone number: [phone] Relationship to Patient: [facility] Provider: Practice: Pain Management Chief Complaint/Reason for Call: [facility] states she mailed the referral over to the office and would like to know if the office received it. Please advise Best time of day caller can be reached: Any Patient advised that office/PCP has 24-48 business hours to return their call: Yes documented in this encounter [facility] 09-04-2023 Telephone encounter Note Name of caller: [facility] Contact phone number: [phone] Relationship to Patient: [facility] Provider: Practice: Pain Management Chief Complaint/Reason for Call: [facility] states she mailed the referral over to the office and would like to know if the office received it. Please advise Best time of day caller can be reached: Any Patient advised that office/PCP has 24-48 business hours to return their call: Yes [facility] 08-19-2023 Telephone encounter Note Returned call gave fax number gave address to mail referral [facility] 08-19-2023 Miscellaneous Notes Returned call gave fax number gave address to mail referral Name of caller: [facility] Contact phone number: [phone] Relationship to Patient: [facility] Provider: Dr. Gillette Practice: Pain Management Chief Complaint/Reason for Call: Pt claims that fax of referral will not go threw and was hoping someone could give her a call back to go over the referral please advise Best time of day caller can be reached: Any Patient advised that office/PCP has 24-48 business hours to return their call: No Name of caller: [facility] Contact phone number: [phone] Relationship to Patient: [facility] Provider: Dr. Gillette Practice: Pain Management Chief Complaint/Reason for Call: [facility] states she would like a call back to confirm receipt of the patient's referral for STUDENT SERVICES REP appt scheduling (fax number confirmed). Please contact [facility] and advise. Best time of day caller can be reached: Any Patient advised that office/PCP has 24-48 business hours to return their call: No documented in this encounter [facility] 08-19-2023 Telephone encounter Note Name of caller: [facility] Contact phone number: [phone] Relationship to Patient: [facility] Provider: Dr. Gillette Practice: Pain Management Chief Complaint/Reason for Call: Pt claims that fax of referral will not go threw and was hoping someone could give her a call back to go over the referral please advise Best time of day caller can be reached: Any Patient advised that office/PCP has 24-48 business hours to return their call: No [facility] 08-19-2023 Telephone encounter Note Name of caller: [facility] Contact phone number: [phone] Relationship to Patient: [facility] Provider: Dr. Gillette Practice: Pain Management Chief Complaint/Reason for Call: [facility] states she would like a call back to confirm receipt of the patient's referral for STUDENT SERVICES REP appt scheduling (fax number confirmed). Please contact [facility] and advise. Best time of day caller can be reached: Any Patient advised that office/PCP has 24-48 business hours to return their call: No [facility] 08-13-2023 Telephone encounter Note Called and gave fax number to send referral [facility] 08-13-2023 Miscellaneous Notes Called and gave fax number to send referral Pt is asking for a call back to be scheduled Left message for patient to call the office Returned call will call thursday Name of Caller: [facility] Contact Reason for Appointment: Doug states that they faxed over a referral for patient a few days ago and is calling to schedule a STUDENT SERVICES REP appointment. Please advise. Office Name: [facility] Pain Medication Refills need, if any: none Medication Name: n/a ` documented in this encounter [facility] 08-13-2023 Telephone encounter Note Pt is asking for a call back to be scheduled [facility] 08-12-2023 Telephone encounter Note Left message for patient to call the office [facility] 08-07-2023 Telephone encounter Note Returned call will call thursday [facility] 08-06-2023 Telephone encounter Note Name of Caller: [facility] Contact Reason for Appointment: Doug states that they faxed over a referral for patient a few days ago and is calling to schedule a STUDENT SERVICES REP appointment. Please advise. Office Name: [facility] Pain Medication Refills need, if any: none Medication Name: n/a ` [facility] 05-23-2023 Emergency department Note Physicians [facility] arrived and report given. Patient loaded and sent back to SNF. Vladimir Dimas RN 05/23/23 1207 [facility] 05-23-2023 Emergency department Note [facility] arrived and report given. Patient loaded and sent back to SNF. Vladimir Dimas RN 05/23/23 1207 Inserted a hudson and drained initially 100ml of blood and puss. Bladder scan showed 500+ ml of fluid in bladder. Obtained OK from ED Attending to manually flush and drain the catheter. After using 30 ml of NS to flush patient the urine began to flow into the hudson bag. Urine sample sent. Vladimir Dimas RN 05/23/23 1013 Bed: 18 Expected date: Expected time: Means of arrival: Comments: Adelia Banuelos 05/23/23 0746 EMERGENCY DEPARTMENT ENCOUNTER Pt Name: Anmol Langley Birthdate 1960 Date of evaluation: 05/23/2023 ED Provider: Colt Klein DO CHIEF COMPLAINT Chief Complaint Patient presents with Urinary Retention HISTORY OF PRESENT ILLNESS (Location/Symptom, Timing/Onset, Context/Setting, Quality, Duration, Modifying Factors, Severity) Note limiting factors. I wore appropriate PPE for the entirety of this encounter. JULIAN Langley is a 62 y.o. male who presents to the emergency department with dislodged Hudson catheter. The patient is a paraplegic has history of chronic indwelling Hudson catheter. His Hudson catheter was obstructed this morning, therefore his nursing facility attempted to change it and were unable to do so, and therefore he was sent to the emergency department for evaluation. The patient denies any urinary symptoms, fevers, or chills. Nursing Notes were reviewed. Limitations to history: Outside historians: REVIEW OF SYSTEMS Review of Systems Genitourinary: Dislodged Hudson catheter PAST MEDICAL HISTORY Past Medical History: Diagnosis Date Abscess, perineum Chronic back pain Hip sprain Hyperlipidemia Hypertension Neuropathy Osteoarthritis Sciatica Type 2 diabetes mellitus without complication ([facility]) SURGICAL HISTORY Past Surgical History: Procedure Laterality Date ANKLE SURGERY Right He has a titanium plate to the right ankle KNEE SURGERY ACL LAMINECTOMY Left 10/24/2020 LEFT BILATERAL L2-3-4-5 DECOMPRESSION performed by Opal Ayala MD at [facility] OR ORTHOPEDIC SURGERY CURRENT MEDICATIONS Previous Medications [...] Culture. Procedure Abnormality Status --------- ------ Complete Urinalysis[[id number]] Abnormal Final result Please view results for [...] with chief complaint of dislodged chronic indwelling Hudson catheter. See history and physical exam above. To aid in management, I performed an independent interpretation of all laboratory tests, EKG, imaging, and other diagnostics ordered. Hudson catheter was passed with return of purulent urine. Urinalysis is grossly positive for UTI. The patient was given Keflex 500 mg p.o. for treatment of UTI, the patient has no sirs criteria. The patient will be discharged with prescription as below for catheter associated UTI and given follow-up to PCP. Patient's care was impacted by diabetes, paraplegia . I oClt Klein DO am the freelance data entry of record. PROCEDURES: Unless otherwise noted below, none Procedures FINAL IMPRESSION 1. Urinary tract infection associated with indwelling urethral catheter, initial encounter ([facility]) DISPOSITION Discharge 05/23/2023 09:53:37 AM PATIENT REFERRED TO: Ambrosio Monroy DO [address] [facility] [address] [facility] ED [address] [facility] [address] DISCHARGE MEDICATIONS: New Prescriptions CEPHALEXIN [...] Klein DO 05/23/23 1010 Patient with chronic hudson due to history of paraplegia that became clogged with blood clots. Patient had lithotripsy due to stone recently. SNF attempted several times to reinsert hudson without success. documented in this encounter [facility] 05-23-2023 Emergency department Note Inserted a hudson and drained initially 100ml of blood and puss. Bladder scan showed 500+ ml of fluid in bladder. Obtained OK from ED Attending to manually flush and drain the catheter. After using 30 ml of NS to flush patient the urine began to flow into the hudson bag. Urine sample sent. Vladimir Dimas RN 05/23/23 1013 [facility] 05-23-2023 Emergency department Note Bed: 18 Expected date: Expected time: Means of arrival: Comments: Adelia Banuelos 05/23/23 0746 [facility] 05-23-2023 Emergency department Triage note Patient with chronic hudson due to history of paraplegia that became clogged with blood clots. Patient had lithotripsy due to stone recently. SNF attempted several times to reinsert hudson without success. [facility] 05-23-2023 Physician Emergency department Note EMERGENCY DEPARTMENT ENCOUNTER Pt Name: Anmol Langley Birthdate 1960 Date of evaluation: 05/23/2023 ED Provider: Colt Klein DO CHIEF COMPLAINT Chief Complaint Patient presents with Urinary Retention HISTORY OF PRESENT ILLNESS (Location/Symptom, Timing/Onset, Context/Setting, Quality, Duration, Modifying Factors, Severity) Note limiting factors. I wore appropriate PPE for the entirety of this encounter. HPI Anmol Langley is a 62 y.o. male who presents to the emergency department with dislodged Hudson catheter. The patient is a paraplegic has history of chronic indwelling Hudson catheter. His Hudson catheter was obstructed this morning, therefore his nursing facility attempted to change it and were unable to do so, and therefore he was sent to the emergency department for evaluation. The patient denies any urinary symptoms, fevers, or chills. Nursing Notes were reviewed. Limitations to history: Outside historians: REVIEW OF SYSTEMS Review of Systems Genitourinary: Dislodged Hudson catheter PAST MEDICAL HISTORY Past Medical History: Diagnosis Date Abscess, perineum Chronic back pain Hip sprain Hyperlipidemia Hypertension Neuropathy Osteoarthritis Sciatica Type 2 diabetes mellitus without complication ([facility]) SURGICAL HISTORY Past Surgical History: Procedure Laterality Date ANKLE SURGERY Right He has a titanium plate to the right ankle KNEE SURGERY ACL LAMINECTOMY Left 10/24/2020 LEFT BILATERAL L2-3-4-5 DECOMPRESSION performed by Opal Ayala MD at [facility] OR ORTHOPEDIC SURGERY CURRENT MEDICATIONS Previous Medications [...] Culture. Procedure Abnormality Status --------- ------ Complete Urinalysis[[id number]] Abnormal Final result Please view results for [...] with chief complaint of dislodged chronic indwelling Hudson catheter. See history and physical exam above. To aid in management, I performed an independent interpretation of all laboratory tests, EKG, imaging, and other diagnostics ordered. Hudson catheter was passed with return of purulent [...] . I Colt Klein DO am the freelance data entry of record. PROCEDURES: Unless otherwise noted below, none Procedures FINAL IMPRESSION 1. Urinary tract infection associated with indwelling urethral catheter, initial encounter ([facility]) DISPOSITION Discharge 05/23/2023 09:53:37 AM PATIENT REFERRED TO: Ambrosio Monroy DO [address] [facility] [address] [facility] [address] [facility] [address] [facility] [address] DISCHARGE MEDICATIONS: New Prescriptions CEPHALEXIN [...] Provider Colt Klein DO 05/23/23 1010 T [facility] 04-21-2022 Note HNO ID: [id number] Author: Cindi Cuellar PA-C Service: ? Author Type: Physician Electronic Warfare Officer Type: Progress Notes Filed: 04/21/2022 12:25 PM Note Text: Actionable Finding: Reviewed patient's chart. The actionable finding of MRI lumbar , dated 02/14/22 was followed up by unknown and unsure if the patient was contacted regarding the MRI results. Unable to reach patient. Staff msg sent to Dr Kelly - patient spine surgeon. Cindi Cuellar PA-C [facility] 04-21-2022 Note Patient Outreach (DILLON MARTINEZMN) GIVEN,ANMOL ([id number]) 1960 M Date Time Provider Department 04/21/22 CINDI CUELLAR During your visit today, we recorded the following information about you: Allergies As of Date: 04/21/2022 (No Known Allergies) Date Reviewed: 01/22/2022 Reviewed by: Fei Salmon RN - Fully Assessed Prescriptions as [...] Of Date 04/21/2022 Noted Resolved NO SHOW [[id number]] 08/31/2013 05/29/2020 Perineal abscess [L02.215] 06/13/2019 05/29/2020 [...] Encounter Status:Closed by CINDI CUELLAR on 04/21/22 [facility] 04-21-2022 Note Patient Outreach (SP JUANMN) ANMOL LANGLEY ([id number]) 1960 M Date Time Provider Department 04/21/22 [...] Known Allergies) Date Reviewed: 01/22/2022 Reviewed by: Fei Salmon, LIBRADO - Fully Assessed Prescriptions as of 04/21/2022 [...] Of Date 04/21/2022 Noted Resolved NO SHOW [[id number]] 08/31/2013 05/29/2020 Perineal abscess [L02.215] 06/13/2019 05/29/2020 [...] Encounter Status:Closed by CINDI CUELLAR on 04/21/22 [facility] 04-21-2022 History of Present illness Narrative Actionable Finding: Reviewed patient's chart. The actionable finding of MRI lumbar , dated 02/14/22 was followed up by unknown and unsure if the patient was contacted regarding the MRI results. Unable to reach patient. Staff msg sent to Dr Kelly - patient spine surgeon. Cindi Cuellar PA-C documented in this encounter [facility] 02-14-2022 History of Present illness Narrative [...] PERIPHERAL IV DATA: Ambulatory: Picc line from [facility] RADIOLOGY DEPARTMENT: MR; Exam(s) Completed: Head: Routine Brain Spine: WHOLE spine SIGNATURE: RT Kasandra(R) PATIENT NAME: Anmol Langley DATE: February 14, 2022 TIME: 12:27 PM documented in this encounter [facility] 08-05-2021 Note HNO ID: [id number] Author: Penny Dave MD Service: ? Author Type: Physician Type: Progress Notes Filed: 08/21/2021 2:37 PM Note Text: Assessment IMPRESSION/PLAN: Anmol Langley is a 61 year old male wm [...] pancreas MRI HISTORY of PRESENT ILLNESS: Anmol Langley is a 61 year old male who [...] CT chest abd/pelvis (more content not included)... [facility] 01-16-2021 History of Past i llness Narrative Problem Noted Date Resolved Date Perirectal abscess 01/16/2021 08/21/2021 Perineal abscess 06/13/2019 05/29/2020 NO SHOW 08/31/2013 05/29/2020 documented as of this encounter (statuses as of 02/15/2022) [facility] History of Past illness Narrative* Problem Noted Date Resolved Date Perirectal abscess 01/16/2021 08/21/2021 Perineal abscess 06/13/2019 05/29/2020 NO SHOW 08/31/2013 05/29/2020 documented as of this encounter (statuses as of 04/21/2022) [facility] information [facility]WTr[facility] Work Phone: Evaluation note* Diagnosis Urinary tract infection associated with indwelling urethral catheter, initial encounter (HCC)- Primary [facility] Diagnosis Injury of lumbar spinal cord, sequela (HCC)- Primary Neuropathic pain [facility] Diagnosis Paraplegia (HCC)- Primary Paraplegia History of lumbar fusion Paraplegia (HCC) Paraplegia History of lumbar fusion [facility] Diagnosis Paraplegia (HCC) Paraplegia History of lumbar fusion [facility]* Diagnosis Bilateral ureteral calculi- Primary Bladder calculus Other calculus in bladder [facility]* Diagnosis Septic shock (HCC)- Primary Septic shock (HCC) Urinary obstruction Decubitus ulcer of sacral region, stage 2 (HCC) Injury of lumbar spinal cord, sequela (HCC) Neuropathic pain Pressure injury of coccygeal region, stage 3 (HCC) Bacteremia Pressure injury of coccygeal region, stage 3 (HCC) Calculus of ureter [facility]* Diagnosis Paraplegia (HCC)- Primary Paraplegia History of lumbar fusion Sacral insufficiency fracture, initial encounter [facility]* Diagnosis Bladder calculus- Primary Other calculus in bladder Bladder calculus Other calculus in bladder Bilateral ureteral calculi Calculus of ureter [facility]* Diagnosis Sacral insufficiency fracture, initial [...] stage 3 (HCC) [facility]* Diagnosis Spinal cord injury, lumbar, without spinal bone injury, sequela (HCC)- Primary Neuropathic pain [facility]* Diagnosis Paraplegia (HCC)- Primary Paraplegia Reflex [...] fracture, initial encounter [facility] Diagnosis Paraplegia (HCC)- Primary Paraplegia Neuropathic [...] unspecified stage- Primary [facility]* Diagnosis Chronic osteomyelitis (HCC)- Primary Chronic [...] current use of insulin (HCC) Chronic indwelling Hudson catheter Other postprocedural status [facility]* Diagnosis Paraplegia (HCC)- Primary Paraplegia Neurogenic bladder Neurogenic bladder, NOS Gross hematuria Neuropathic pain Neuralgia, neuritis, and radiculitis, unspecified Pressure injury of skin, unspecified injury stage, unspecified location [facility]* Diagnosis Ureteral stent present- Primary Kidney stone Calculus of kidney Hydronephrosis, unspecified hydronephrosis type documented in this encounter [facility] note* Diagnosis Chronic osteomyelitis (HCC)- Primary Chronic osteomyelitis, site unspecified Severe protein-calorie malnutrition (HCC) Other severe protein-calorie malnutrition Ureteral calculi Calculus of ureter Complicated UTI (urinary tract infection) Urinary tract infection, site not specified Neurogenic bladder Neurogenic bladder, NOS Type 2 diabetes mellitus with hyperglycemia, with long-term current use of insulin (HCC) [facility]* Diagnosis Other acute osteomyelitis, other site (HCC)- Primary Other acute osteomyelitis, other site (HCC) Pressure injury of coccygeal region, stage 3 (HCC) Lumbar stenosis with neurogenic claudication Osteoarthritis, unspecified osteoarthritis type, unspecified site Other intervertebral disc displacement, lumbar region Pressure injury of coccygeal region, stage 3 (HCC) documented in this encounter [facility] Discharge instructions* Attachments The following attachments cannot be sent through Care Everywhere. * Urinary Tract Infections in Adults (Micronesian) [facility] Consultation (Routine) - Pending Review Specialty Diagnoses / Procedures Referred By Daisy paredes Referred To Contact Urology Diagnoses Urinary obstruction Procedures DE OFFICE/OUTPATIENT NEW HIGH MDM 60 MINUTES Vish Mckenzie DO [address] [place] [address] Dashawn Grimm MD [address] [place] [address] Referral ID Status Reason Start Date Expiration Date Visits Requested Visits Authorized [id number] Pending Review Specialty Services Required 04/20/2024 04/20/2025 1 1 * Consultation (Routine) - Pending Review Specialty Diagnoses / Procedures Referred By Contac t Referred To Contact Wound Care Diagnoses Decubitus ulcer of sacral region, stage 2 (HCC) Procedures DE OFFICE/OUTPATIENT NEW HIGH MDM 60 MINUTES Sumi Everett, JOE Sanchez CNP [address] [place] [address] Sbh Op Wnd Ostomy [facility] [address] [place] [address] Referral ID Status Reason Start Date Expiration Date Visits Requested Visits Authorized [id number] Pending Review Specialty Services Required 04/15/2024 04/15/2025 1 1 [facility] for referral (narrative)No reason for referral information availableWTrinity [facility] Work Phone: Reason for visit Narrative* Service Level Authorization (Routine) - Closed Specialty Diagnoses / Procedures Referred By Daisy t Referred To Contact Physical Medicine & Rehab/PM&R Diagnoses Paraplegia (HCC) Reflex neurogenic bladder Procedures CYSTOMETROGRAM W/VETERINARY TECHNICIAN BLADDER IRRIGATION, SIMPLE, LAVAGE &/OR INSTILLATION COMPLEX UROFLOWMETRY ELECTROMYOGRAPHY STUDIES, ANAL/URETHRAL SPHINCTER, OTHER THAN NEEDLE, ANY TECHNIQUE VOIDING PRESSURE STUDIES; INTRA-ABDOMINAL VOIDING PRESSURE Faisal Kitchen, [address] [place] [address] Phone: tel: fax: [facility] [address] [place] [address] Phone: tel: Referral ID Status Reason Start Date Expiration Date V isits Requested Visits Authorized [id number] [facility]/13[facility] 06/13/2025 1 [facility] MRI/CT (Routine) - Authorized Specialty Diagnoses / Procedures Referred By Daisy t Referred To Contact Radiology / RADIO [facility] Diagnoses Pressure ulcer of sacral region, unspecified stage PT WILL NEED A EVERETT LIFT SACRUM/PELVIS WO/W Pressure ulcer of sacral region, unspecified stage [L89.159] BIRDIE WILL FAX ORDER Procedures MRI PELVIS W/O & W/CONTRAST MATERIAL MRI WWO NEU1 B 300 Jenny Howell, GRINDING MACHINE OPERATOR PORTABLE [address] [place] [address] Phone: tel: fax: Radiology [address] [place] [address] Phone: tel: Referral ID Status Reason Start Date Expiration Date V isits Requested Visits Authorized [id number] Authorized 11/14/2024 01/13/2025 3 3 [facility] Summary Purpose Family History No Family [...] FoundDocuments on File Type Date Recorded Patient Boxing Promoter Expl anation ACP-Advance Directive ACP-Power of Multiple Coil Winder Latest Code Status on File Code Status Date Activated Date Inactivated Comments Full Code 10/24/2020 7:42 PM Full Code 01/05/2017 7:24 PM 01/06/2017 9:11 PM Documents on File Type Date Recorded Patient Boxing Promoter Expl anation Advance Directive(s) 01/04/2022 9:24 PM [...] Full Code Order Discussed With: Patient and Tarar ogate Decision Maker Surrogate Decision Maker Name: Sumi Langley Surrogate Decision Maker Date Activated Date Inactivated [...] mellitus without complication ([place] [address] [place] [address] [facility] [address] [place] [address] Scheduling Instructions [facility] - Diabetic [facility] [address] [place], [place] [address] Specialty Diagnoses / Procedures Referred By Contact Referred To Contact Physical Medicine & Rehab/PM&R Diagnoses Paraplegia (HCC) History of lumbar fusion Timmy Martinez DO [address] [place] [address] [facility] [place] - Rehab [facility] [address] [place] [address] Referral ID Status Reason Start Date Expiration Date V isits Requested Visits Authorized [id number] Authorized 02/10/2024 02/09/2025 1 1 Scheduling Instructions [...] care. Specialty Diagnoses / Procedures Referred By aDisy paredes Referred To Contact Radiology Diagnoses Paraplegia (HCC) History of lumbar fusion Procedures MR L-SPINE W/+W/O Timmy Martinez DO [address] [place] [address] [facility] MRI [address] [place] [address] Referral ID Status Reason Start Date Expiration Date V isits Requested Visits Authorized [id number] Authorized 02/10/2024 02/09/2025 1 1 Specialty Diagnoses / Procedures Referred By Daisy paredes Referred To Contact Radiology Diagnoses Paraplegia (HCC) History of lumbar fusion Procedures XR L-SPINE AP+LATERAL 2-3 VIEWS Timmy Martinez DO [address] [place] [address] [facility] DIAGNOSTIC RADIOLOGY [address] [place] [address] Referral ID Status Reason Start Date Expiration Date Visits Re quested Visits Authorized [id number] Closed 02/10/2024 02/09/2025 1 1 Referral ID Status Reason Start Date Expiration Date Visits Re quested Visits Authorized [id number] Closed 02/10/2024 02/09/2025 1 1 Specialty Diagnoses / Procedures Referred By Daisy paredes Referred To Contact Diagnoses Paraplegia (HCC) History of lumbar fusion Sacral insufficiency fracture, initial encounter Timmy Martinez DO [address] [place] [address] Referral ID Status Reason Start Date Expiration Date Visits Requested Visits Authorized [id number] Authorized Shannen poole-[facility] 04/06/2024 04/06/2025 1 1 Scheduling Instructions You have been referred to the [facility]. You will be contacted to schedule your appointment within 24 - 48 hours. If you are not contacted within this time frame please call the Spine Center at [phone] to schedule your appointment. Question Answer Reason [...] PA + LAT 2 OR 3 VIEWS iVsh Howe MD [address] [place] [address] [facility] DIAGNOSTIC RADIOLOGY [address] [place] [address] [place] [address] Referral ID Status Reason Start Date Expiration Date Visits Re quested Visits Authorized [id number] Closed 05/11/2024 05/11/2025 1 1 Specialty Diagnoses / Procedures Referred By Contac t Referred To Contact Radiology Diagnoses Sacral insufficiency fracture, initial encounter Procedures XR SACRUM-COCCYX 3 VIEWS Amanda Lind PA-C [address] [place] [address] [place] [address] [facility] DIAGNOSTIC RADIOLOGY [address] [place] [address] [place] [address] Referral ID Status Reason Start Date Expiration Date Visits Re quested Visits Authorized [id number] Closed 05/10/2024 05/10/2025 1 1 Specialty Diagnoses / Procedures Referred By Contac t Referred To Contact Radiology Diagnoses Sacral insufficiency fracture, initial encounter Procedures MR C-SPINE W/O Vish Howe MD [address] [place], [place] [id number] S MRI [address] [place] [address] Referral ID Status Reason Start Date Expiration Date V isits Requested Visits Authorized [id number] Authorized 05/11/2024 05/11/2025 1 1 Specialty Diagnoses / Procedures Referred By Contac t Referred To Contact Radiology Diagnoses Sacral insufficiency fracture, initial encounter Procedures MR T-SPINE W/O Vish Howe MD [address] [place] [address] [address] [place] [address] Referral ID Status Reason Start Date Expiration Date V isits Requested Visits Authorized [id number] Authorized 05/11/2024 05/11/2025 1 1 Specialty Diagnoses / Procedures Referred By Contac t Referred To Contact Radiology Diagnoses Sacral insufficiency fracture, initial encounter Procedures BD BONE DENSITY SURVEY Vish Howe MD [address] [place] [address] S BONE DENSITY [address] [place] [address] Referral ID Status Reason Start Date Expiration Date V isits Requested Visits Authorized [id number] Authorized 05/11/2024 05/11/2025 1 1 Specialty Diagnoses / Procedures Referred By Contac t Referred To Contact Physical Medicine & Rehab/PM&R Diagnoses Paraplegia (HCC) Reflex neurogenic bladder Faisal Kitchen DO [address] [place] [address] [place] [facility] [address] [place] [address] Referral ID Status Reason Start Date Expiration Date Visits Requested Visits Authorized [id number] [facility]ending [facility]/13/2024 06/13/2025 3 3 Scheduling Instructions Please schedule this appointment through [facility] or call the phone number listed above. Thank you. Question Answer Is study to assess a baseline neurogenic bladder or for diagnosis of complaint? neurogenic bladder Does the patient have a known history of autonomic dysreflexia? No Should bladder medications be held prior to UDS? No Specialty Diagnoses / Procedures Referred By Contdarian t Referred To Contact Vocational Services Diagnoses Paraplegia (HCC) Faisal Kitchen DO [address] [place] [address] Referral ID Status Reason Start Date Expiration Date Visits Requested Visits Authorized [id number] [facility]ized [facility] 06/13/2024 06/13/2025 3 3 Scheduling Instructions Please call to schedule an appointment. If you are unable to keep your appointment, please call [phone] at least 24 hours in advance. Question Answer Reason for request: Basic Needs (i.e. medical equipment, housing, food, rent, utilities, transpo), Benefits Applications (i.e. social security, job and family services), Vocational (i.e. [place] rehab services commission, volunteer work), Other Support Services (i.e. medication programs, home accessibility, legal assistance) Other support services requested: Home accessibility Referral ID Status Reason Start Date Expiration Date Visits Re quested Visits Authorized [id number] Closed 05/11/2024 05/11/2025 1 1 Referral ID Status Reason Start Date Expiration Date Visits Re quested Visits Authorized [id number] Closed 05/11/2024 05/11/2025 1 1 Discharge Instructions * Discharge Instr - Diet* Opal Ayala MD - 10/24/2020 1:33 PM EST ? [...] at most local grocery stores, pharmacies, and [employer]-stores. ? If you have any questions about your diet or nutrition, call the hospital and ask for the dietitian. * Discharge Instr - ADELINE* Opal Ayala MD - 10/24/2020 1:33 PM EST Continuity of Care Form Patient Name: Anmol Langley : 1960 Admit date: 10/24/2020 Discharge date: Code Status Order: Prior Advance Directives: Advance Care Flowsheet Documentation Date/Time Healthcare Directive Type of Healthcare Directive Copy in Chart Healthcare Agent Appointed Healthcare Agent's Name Healthcare Agent's Phone Number 10/24/20 0808 No, patient does not have an advance directive for healthcare treatment -- -- -- -- -- Admitting Physician: Opal Ayala MD PCP: AMBROSIO MONROY DO Discharging Nurse: Discharging Hospital Unit/Room#: MLOZ OR Pool/NONE Discharging Unit Phone Number: Emergency Contact: Extended Emergency Contact Information Primary Emergency Contact: [facility] Relation: Spouse Lithographic Proofer Apprentice needed? No Secondary Emergency Contact: Ronald Langley Mobile Relation: Brother/Sister Past Surgical History: Past [...] MENTAL STATUS:} IV Access: { ADELINE IV ACCESS:680604490} Nursing Mobility/ADLs: Walking {CHP DME ADLs:969622223} Transfer {CHP DME ADLs:896810396} Bathing {CHP DME ADLs:621951312} Dressing {CHP DME ADLs:916721314} Toileting {CHP DME ADLs:908448694} Feeding {CHP DME ADLs:157559148} Investment Strategist {P DME ADLs:281101861} Med Delivery { ADELINE MED Delivery:701302146} Wound Care Documentation and Therapy: Elimination: Continence: Bowel: {YES / NO:} Bladder: {YES / NO:} Urinary Catheter: {Urinary Catheter:161938626} Colostomy/Ileostomy/Ileal Conduit: {YES / NO:} Date of Last BM: Intake/Output Summary (Last 24 hours) at 10/24/2020 1333 Last data filed at 10/24/2020 1139 Gross per 24 hour Intake 1000 ml Output 325 ml Net 675 ml No intake/output data recorded. Safety Concerns: { ADELINE Safety Concerns:158404640} Impairments/Disabilities: { ADELINE Impairments/Disabilities:994815870} Nutrition Therapy: Current Nutrition Therapy: { ADELINE Diet List:115161989} Routes of Feeding: {[facility] DME Other Feedings:027622110} Liquids: {Blanking Machine Operator liquid thickness:68288} Daily Fluid Restriction: {CHP DME Yes amt example:800905639} Last Modified Barium Swallow with Video (Video Swallowing Test): {Done Not Done Date:} Treatments at the Time of Hospital Discharge: Respiratory Treatments: Oxygen Therapy: {Therapy; copd oxygen:75292} Ventilator: { CC Vent List:773466313} Rehab Therapies: {THERAPEUTIC INTERVENTION:5088315003} Weight Bearing Status/Restrictions: { CC Weight Bearin} Other Medical Equipment (for information only, NOT a DME order): {EQUIPMENT:007467814} Other Treatments: Patient's personal belongings (please select all that are sent with patient): {CHP DME Belongings:568627559} RN SIGNATURE: {Esignature:739412371} CASE MANAGEMENT/SOCIAL WORK SECTION Inpatient Status Date: Readmission Risk Assessment Score: Readmission Risk Risk of Unplanned Readmission: 0 Discharging to Facility/ Agency Name: Address: Phone: Fax: Dialysis Facility (if applicable) Name: Address: Dialysis Schedule: Phone: Fax: Publicity Consultant/Armored Vehicle Officer signature: {Esignature:410433457} PHYSICIAN SECTION Prognosis: {Prognosis:5663692791} Condition at Discharge: { Patient Condition:481305719} Rehab Potential (if transferring to Rehab): {Prognosis:1325969465} Recommended Labs or Other Treatments After Discharge: Physician Certification: I certify the above information and transfer of Anmol Langley is necessaryfor the continuing treatment of the diagnosis listed and that he requires {Admit to Appropriate Level of Care:25172} for {GREATER/LESS:206835753} 30 days. Update Admission H&P: {CHP DME Changes in HandP:506152335} PHYSICIAN SIGNATURE: * Additional Instructions* Opal Ayala MD - 10/24/2020 Every day change the dressing frequently to keep clean and dry 4 x 4 gauze pads paper tape. May shower 3 days. Avoid soaking or soap for 1 week. Recheck 1 month [id number]. E prescribed Overgaard 5/325 #28 done documented in this encounter [...] Full Code PT/OT Eval * Ye Prado, GRINDING MACHINE OPERATOR PORTABLE - BEADER TENDER - 10/25/2020 9:43 AM EST Patient is [...] Patient to follow up outpatient with Dr. Ayala. AELE * Brianna Webb RN - 10/25/2020 8:29 [...] region, with neurogenic claudication [place] [address] DISCHARGE SUMMARY PATIENT NAME: ANMOL LANGLEY : 1960 MED REC NO: [id number] ROOM: [facility] ACCOUNT NO: [id number] ADMIT DATE: 10/24/2020 PROVIDER: Opal Ayala MD DISCH DATE: HOSPITAL COURSE: Left and bilateral L2-L3, L3-L4, L4-L5 micro decompressions. The patient tolerated the procedure well. Wound drain in place, removal the next day. Once ambulatory with bladder control, plan discharge in good condition. DISCHARGE DIAGNOSIS: L2, L3, L4, L5 canal stenosis with neurogenic claudication, improved. DISCHARGE MEDICATION: Overgaard 5/325, #28. DISCHARGE INSTRUCTIONS: The patient has been instructed to keep the wound clean and dry about three days, avoiding soaking or soap for a week, recheck in a month. If he has any questions or problems, please contact the office. OPAL AYALA MD [id number] Doc#: [id number] CC: Chief Complaint and Reason for Visit Chief Complaint LABWORK Chief Complaint LABWORK FDC LAB WORK Chief Complaint LABWORK FDC LAB WORK FDC LAB WORK Chief Complaint FDC LAB WOR K [facility]DC LAB WORK FDC LAB WORK LABWORK Chief Complaint LABWORK FDC LAB WORK LABWORK Chief Complaint LABWORK F[facility] LAB WORK LABWORK [facility] LAB WORK Chief Complaint Admit Date [facility] LAB WORK September 20 5:00am [facility] LAB WORK September 29 4:00am [facility] LAB WORK October 03 5:00am LABWORK October 10, 2024 5: 00am [facility] LAB WORK November 29 4:45am LABWORK November 30, 2024 5:00am Chief Complaint Admit Date FDC LAB WORK September 20 5:00am [facility] LAB WORK September 29 4:00am [facility] LAB WORK October 03 5:00am LABWORK October 10, 2024 5: 00am [facility] LAB WORK November 29 4:45am LABWORK November 30, 2024 5:00am [facility] LAB WORK December 07, 2024 5: 00am Chief Complaint Admit Date [facility]DC LAB WORK November 29 4:45am LABWORK November 30, 2024 5:00am [facility] LAB WORK December 07, 2024 5: 00am [facility] LAB WORK January 09, 2025 5: 00am LABWORK February 15, 2025 4:20a m LABOWRK March 01, 2025 5:00a m Chief Complaint Admit Date [facility] LAB WORK November 29 4:45am LABWORK November 30, 2024 5:00am [facility] LAB WORK December 07, 2024 5: 00am [facility] LAB WORK January 09, 2025 5: 00am [...] section and content) DATE CREATED AUTHOR 03/30/2018 [facility] DATE CREATED AUTHOR AUTHOR'S ORGANIZ ATION 03/31/2018 [facility] DATE CREATED AUTHOR AUTHOR'S ORGANIZ ATION 06/22/2018 [facility] DATE CREATED AUTHOR AUTHOR'S ORGANIZ ATION 07/08/2018 [facility] DATE CREATED AUTHOR AUTHOR'S ORGANIZ ATION 10/20/2020 [facility] DATE CREATED AUTHOR AUTHOR'S ORGANIZ ATION 10/27/2020 [facility] Center DATE CREATED AUTHOR AUTHOR'S ORGANIZ ATION 05/24/2021 [facility] DATE CREATED AUTHOR AUTHOR'S ORGANIZ ATION 10/16/2021 [facility] DATE CREATED AUTHOR AUTHOR'S ORGANIZ ATION 04/25/2022 [facility] DATE CREATED AUTHOR AUTHOR'S ORGANIZ ATION 11/10/2024 [facility] DATE CREATED AUTHOR AUTHOR'S ORGANIZ ATION 03/22/2025 [facility] DATE CREATED AUTHOR AUTHOR'S ORGANIZ ATION 03/27/2025 [facility]ical Center DATE CREATED AUTHOR AUTHOR'S ORGANIZ ATION 05/03/2025 [facility] DATE CREATED AUTHOR AUTHOR'S ORGANIZ ATION 05/09/2025 [facility] Reason for Visit (unrecogniz ed section and content) Status Reason Specialty Diagnoses / Procedures Referre d By Contact Referred To Contact Diagnoses L2-3-4-5 STENOSIS Procedures DE LAMINECTOMY,>2 SGMT,LUMBAR LEFT BILATERAL L2-3-4-5 DECOMPRESSION. 2.5 HOURS, C-ARM, POWER RONGEUR. 1ST CASE ([facility]) Opal Ayala MD [address] [facility] [address] [address] [facility] Reason Comments Urinary Retention Reason Onset Date Comments new patient appointment 08/06/2023 Reason Onset Date Comments Referral 09/04/2023 Reason Onset Date Comments Referral 08/19/2023 Confirm Receipt of Referral for STUDENT SERVICES REP Appt Scheduling Reason Comments Pain Pt is [...] of lumbar fusion Procedures MR L-SPINE W/+W/O Timmy Martinez DO [address] [place] [address] [facility] MRI [address] [facility] [place] [address] Referral ID Status Reason Start Date Expiration Date Visits Re quested Visits Authorized [id number] Closed 02/10/2024 02/09/2025 1 1 Reason Comments Leg Pain Specialty Diagnoses / Procedures Referred By Contac t Referred To Contact Diagnoses Urinary obstruction Septic shock (HCC) Procedures - Blaise Hooker MD [address] [place] [address] [facility] [address] [place] [address] Referral ID Status Reason Start Date Expiration Date Visits Re quested Visits Authorized [id number] 1 1 Reason Onset Date Comments Surgery Scheduling 04/15/2024 Reason Onset Date Comments Reschedule 05/04/2024 Specialty Diagnoses / Procedures Referred By Contac t Referred To Contact Diagnoses Calculus of ureter Procedures DE CYSTOURETHROSCOPY DE LITHOLAPAXY COMP/LG > 2.5 CM DE CYSTO W/URETEROSCOPY W/LITHOTRIPSY DE CYSTO W/INSERT URETERAL STENT CYSTOSCOPY POSSIBLE CYSTOLITHOLAPAXY BILATERAL URETEROSCOPY ASTRID LASER LITHOTRIPSY BILATERAL URETERAL STENT CHANGE Dashawn Grimm MD [address] [place] [address] [address] [facility] [address] [place] [address] Referral ID Status Reason Start Date Expiration Date Visits Re quested Visits Authorized [id number] 1 1 Reason Onset Date Comments Update 05/10/2024 Specialty Diagnoses / Procedures Referred By Contac t Referred To Contact Radiology Diagnoses Sacral insufficiency fracture, initial encounter Procedures XR SACRUM-COCCYX 3 VIEWS Amanda Lind PA-C [address] [place] [place] [address] [facility] DIAGNOSTIC RADIOLOGY [address] [place] [id number] Referral ID Status Reason Start Date Expiration Date Visits Re quested Visits Authorized [id number] Closed 05/10/2024 05/10/2025 1 1 Reason Onset Date Comments Labs Only 05/13/2024 Reason Comments Numbness/tingling New patient, to establish relationship Specialty Diagnoses / Procedures Referred By Daisy t Referred To Contact Diagnoses Paraplegia (HCC) History of lumbar fusion Sacral insufficiency fracture, initial encounter Timmy Martinez DO [address] [place] [address] Referral ID Status Reason Start Date Expiration Date V isits Requested Visits Authorized [id number] Closed Consultation [facility] 04/06/2024 04/06/2025 1 1 Reason Comments Other Abnormal labs, blood cultures has been done to pt in facility, gram + cocci. Had back sx 2 yrs ago that resulted to paraplegia, pt is paralyze from waist down. Afebrile, aox4 Specialty Diagnoses / Procedures Referred By Daisy paredes Referred To Contact Diagnoses Positive blood cultures Procedures - Heydi Concepcion MD [address] [place] [address] [facility] Emergency Dept [address] [place] [phone] Referral ID Status Reason Start Date Expiration Date Visits Re quested Visits Authorized [id number] 1 1 Reason Comments New Patient Leg Pain Pt states having jeri n on his paralyzed legs, pain rate 8/10. Reason Comments New patient, to establish relationship Specialty Diagnoses / Procedures Referred By Contact Referred To Contact Physical Medicine & Rehab/PM&R Diagnoses Paraplegia (HCC) History of lumbar fusion Timmy Martinez DO [address] [place] [address] [facility] Rehab [facility] [address] [place] [phone] Referral ID Status Reason Start Date Expiration Date V isits Requested Visits Authorized [id number] Pending Review 02/10/2024 02/09/2025 1 1 Reason Onset Date Comments Reschedule 06/15/2024 Specialty Diagnoses / Procedures Referred By Daisy t Referred To Contact Radiology Diagnoses Sacral insufficiency fracture, initial encounter Procedures MR T-SPINE W/O Vish Howe MD [address] [place], [place] [address] [facility] MRI [address] [place] [address] Referral ID Status Reason Start Date Expiration Date Visits Re quested Visits Authorized [id number] Closed 05/11/2024 05/11/2025 1 1 Reason Comments Evaluation Follow up Reason Comments Osteoporosis Reason Onset Date Comments Appointment 10/25/2024 Reason Onset Date Comments Hospital F/U 02/19/2025 Reason Onset Date Comments Other 03/07/2025 Reason Comments Evaluation Reason Comments Nephrolithiasis Reason Comments Wound Check Sacrum / left ischiu m Reason Comments Wound Infection Per EMS pt was sent here from the [facility] for wound infections. Pt has two wound on his sacrum - one at the top of sacrum and one at the bottom of the buttocks. Denies any fever/ CP/FEVER/ SOB. Pt is paralysis. Specialty Diagnoses / Procedures Referred By Contac t Referred To Contact Diagnoses Other acute osteomyelitis, other site (HCC) Procedures m86.18 Ab Hawkins MD [address] [place] [address] Phone: tel: fax: [facility] Medical [address] [place] [phone] Phone: tel: Referral ID Status Reason Start Date Expiration Date Visits Re quested Visits Authorized [id number] 1 1 Ordered Prescriptions (unrec ognized section [...] or prosecute any alcohol or drug abuse patient.[facility] the event this information is protected by the Federal Confidentiality of Alcohol and Drug Abuse Patient Records regulations: The Federal rules restrict any use of the information to criminally investigate or prosecute any alcohol or drug abuse patient.[facility] the event this information is protected by the Federal Confidentiality of Alcohol and Drug Abuse Patient Records regulations: The Federal rules restrict any use of the information to criminally investigate or prosecute any alcohol or drug abuse patient.[facility] the event this information is protected by the Federal Confidentiality of Alcohol and Drug Abuse Patient Records regulations: The Federal rules restrict any use of the information to criminally investigate or prosecute any alcohol or drug abuse patient.[facility] the event this information is protected by the Federal Confidentiality of Alcohol and Drug Abuse Patient Records regulations: The Federal rules restrict any use of the information to criminally investigate or prosecute any alcohol or drug abuse patient.[facility] the event this information is protected by the Federal Confidentiality of Alcohol and Drug Abuse Patient Records regulations: The Federal rules restrict any use of the information to criminally investigate or prosecute any alcohol or drug abuse patient.[facility] Center[facility] the event this information is protected by the Federal Confidentiality of Alcohol and Drug Abuse Patient Records regulations: The Federal rules restrict any use of the information to criminally investigate or prosecute any alcohol or drug abuse patient.[facility] Center[facility] the event this information is protected by the Federal Confidentiality of Alcohol and Drug Abuse Patient Records regulations: The Federal rules restrict any use of the information to criminally investigate or prosecute any alcohol or drug abuse patient.[facility] Care Teams (unrecognized sec tion and content) Director Of Student Financial Services Relationship Specialty Start Date End Date Ambrosio Monroy, DO [address] [facility] [address] [place] [address] PCP - General Family Practice 05/21/17 Penny Dave MD [address] [address] Consulting General Surgery 01/17/21 Gayle Zayas MD [address] [place] [address] Consulting Infectious Diseases 12/03/21 Ambrosio Monroy, DO [address] [place] [address] Home Care Physician Internal Medicine 12/03/21 Director Of Student Financial Services Relationship Specialty Start Date End Date Ambrosio Monroy DO [address] [place] [address] PCP - General Family Practice 05/21/17 Penny Dave MD [address] [address] Consulting General Surgery 01/17/21 Gayle Zayas MD [address] [place] [address] Consulting Infectious Diseases 12/03/21 Ambrosio Monroy, DO [address] [place] [address] Home Care Physician Internal Medicine 12/03/21 Director Of Student Financial Services Relationship Specialty Start Date End Date Ambrosio Monroy DO [address] [place] [address] PCP - General Family Practice 05/21/17 Penny Dave MD [address] [address] Consulting General Surgery 01/17/21 Gayle Zayas MD [address] [place] [phone] Consulting Infectious Diseases 12/03/21 Ambrosio Monroy DO [address] [place] [address] Home Care Physician Internal Medicine 12/03/21 Team Status: Active Member Role Status Dates Dr. Ambrosio Monroy , DO Primary Care Provider Active Team Status: Inactive Member Role Status Dates Dr. Ambrosio Monroy , Primary Care Provider Active Walter MURO Attending Provider Active Team Status: Active Member Role Status Dates Dr. Ambrosio Monroy DO Primary Care Provider Active Walter MURO Attending Provider Active Director Of Student Financial Services Relationship Specialty Start Date End Date Ambrosio Monroy DO [address] [place] [address] PCP - General 06/07/17 Team Status: Inactive Member Role Status Dates Dr. Ambrosio Monroy DO Primary Care Provider Active Walter MURO Attending Provider, Referring Provi krish Active Director Of Student Financial Services Relationship Specialty Start Date End Date Ambrosio Monroy DO [address] [place] [address] PCP - General 06/07/17 Director Of Student Financial Services Relationship Specialty Start Date End Date Ambrosio Monroy DO [address] [place] [address] PCP - General 06/07/17 Director Of Student Financial Services Relationship Specialty Start Date End Date Ambrosio Monroy DO [address] [place] [address] PCP - General 06/07/17 Director Of Student Financial Services Relationship Specialty Start Date End Date Ambrosio Monroy DO [address] [place] [address] PCP - General 06/07/17 Director Of Student Financial Services Relationship Specialty Start Date End Date Timmy Martinez 36 [place] [address] Physician Physical Medicine & Rehab/PM&R 03/05/24 Director Of Student Financial Services Relationship Specialty Start Date End Date Ambrosio Monroy DO [address] [place] [address] PCP - General 06/07/17 Director Of Student Financial Services Relationship Specialty Start Date End Date Ambrosio Monroy DO [address] [place] [address] PCP - General 06/07/17 Director Of Student Financial Services Relationship Specialty Start Date End Date Ambrosio Monroy DO [address] [place] [address] PCP - General 06/07/17 Director Of Student Financial Services Relationship Specialty Start Date End Date ElysiajacqueTimmyDO [address] [place] [address] Physician Physical Medicine & Rehab/PM&R 03/05/24 Director Of Student Financial Services Relationship Specialty Start Date End Date Ambrosio Monroy DO [address] [place] [address] PCP - General 06/07/17 Dashawn Grimm MD [address] [place] [address] [address] [place] [address] Surgeon Urology 05/05/24 Director Of Student Financial Services Relationship Specialty Start Date End Date Ambrosio Monroy DO [address] [facility] [address] [place] [address] PCP - General 06/07/17 Dashawn Grimm MD [address] [address] Surgeon Urology 05/05/24 Director Of Student Financial Services Relationship Specialty Start Date End Date Macrina MartinezedDO [address] [place] [address] Physician Physical Medicine & Rehab/PM&R 03/05/24 Director Of Student Financial Services Relationship Specialty Start Date End Date Timmy Martinez DO [address] [place] [address] Physician Physical Medicine & Rehab/PM&R 03/05/24 Director Of Student Financial Services Relationship Specialty Start Date End Date Ambrosio Monroy DO [address] [facility] [address] [place] [address] PCP - General 06/07/17 Dashawn Grimm MD [address] [address] Surgeon Urology 05/05/24 Director Of Student Financial Services Relationship Specialty Start Date End Date Macrina MartinezedDO [address] [place] [address] Physician Physical Medicine & Rehab/PM&R 03/05/24 Director Of Student Financial Services Relationship Specialty Start Date End Date Ambrosio Monroy DO [address] [facility] [address] [place] [address] PCP - General 06/07/17 05/18/24 Walter Alatorre [address] [place] [address] PCP - General Internal Medicine 05/19/24 Dashawn Grimm MD 201 [facility] 3 [place] [address] Surgeon Urology 05/05/24 Director Of Student Financial Services Relationship Specialty Start Date End Date Ambrosio Monroy DO [address] [place] [address] PCP - General 06/07/17 05/18/24 Director Of Student Financial Services Relationship Specialty Start Date End Date Timmy Martinez DO [address] [place] [address] Physician Physical Medicine & Rehab/PM&R 03/05/24 Vish Howe MD [address] [place] [address]695 Physician Orthopaedic Surgery 06/11/24 Director Of Student Financial Services Relationship Specialty Start Date End Date Timmy Martinez DO [address] [place] [address] Physician Physical Medicine & Rehab/PM&R 03/05/24 Vish Howe MD [address] [place] [address] Physician Orthopaedic Surgery 06/11/24 Director Of Student Financial Services Relationship Specialty Start Date End Date Walter Alatorre [address] [place] [phone] PCP - General Internal Medicine 05/19/24 Dashawn Grimm MD [address] [place] [address] 3 [place] [address] Surgeon Urology 05/05/24 Director Of Student Financial Services Relationship Specialty Start Date End Date Timmy Matrinez DO [address] [place] [address] Physician Physical Medicine & Rehab/PM&R 03/05/24 Vish Howe MD [address] [place] [address] Physician Orthopaedic Surgery 06/11/24 Director Of Student Financial Services Relationship Specialty Start Date End Date Timmy Martinez DO [address] [place] [address] Physician Physical Medicine & Rehab/PM&R 03/05/24 Vish Howe MD [address] [place] [address] Physician Orthopaedic Surgery 06/11/24 Director Of Student Financial Services Relationship Specialty Start Date End Date Timmy Martinez DO [address] [place] [address] Physician Physical Medicine & Rehab/PM&R 03/05/24 Vish Howe MD [address] [place] [address]273 Physician Orthopaedic Surgery 06/11/24 Director Of Student Financial Services Relationship Specialty Start Date End Date Timmy Martinez DO [address] [place] [address] Physician Physical Medicine & Rehab/PM&R 03/05/24 Vish Howe MD [address] [place] [address] Physician Orthopaedic Surgery 06/11/24 Director Of Student Financial Services Relationship Specialty Start Date End Date Timmy Martinez DO [address] [place] [address] Physician Physical Medicine & Rehab/PM&R 03/05/24 Vish Howe MD [address] [place] [address] Physician Orthopaedic Surgery 06/11/24 Director Of Student Financial Services Relationship Specialty Start Date End Date Timmy Martinez DO [address] [place] [address] Physician Physical Medicine & Rehab/PM&R 03/05/24 Vish Howe MD [address] [place] [address] Physician Orthopaedic Surgery 06/11/24 Director Of Student Financial Services Relationship Specialty Start Date End Date Timmy Martinez DO [address] [place] [address] Physician Physical Medicine & Rehab/PM&R 03/05/24 Vish Howe MD [address] [place] [address]159 Physician Orthopaedic Surgery 06/11/24 Lizbet He DO [address] [place] [address] Physician Rheumatology 09/10/24 Faisal Kitchen DO [address] [place] [address] Physician Physical Medicine & Rehab/PM&R 09/30/24 Director Of Student Financial Services Relationship Specialty Start Date End Date Walter Alatorre [address] [place] [phone] PCP - General Internal Medicine 05/19/24 Dashawn Grimm MD [address] [facility] 3 [place] [address] Surgeon Urology 05/05/24 Team Status: Inactive Member Role Status Dates Dr. Ambrosio Monroy DO Primary Care Provider Active Start: September 20, 2024 End: September 20, 2024 Walter MURO Attending Provider Active Sta rt: September 20, 2024 End: September 20, 2024 Team Status: Inactive Member Role Status Dates Dr. Ambrosio Monroy DO Primary Care Provider Active Start: September 29, 2024 End: September 29, 2024 Walter MURO Attending Provider Active Sta rt: September 29, 2024 End: September 29, 2024 Walter MURO Referring Provider Active Sta rt: September 29, 2024 End: September 29, 2024 Team Status: Inactive Member Role Status Dates Dr. Ambrosio Monroy DO Primary Care Provider Active Start: October 03, 2024 End: October 03, 2024 Walter MURO Attending Provider Active Sta rt: October 03, 2024 End: October 03, 2024 Team Status: Inactive Member Role Status Dates Dr. Ambrosio Monroy DO Primary Care Provider Active Start: October 10, 2024 End: October 10, 2024 Walter MURO Attending Provider Active Sta rt: October [...] Care Provider Active Start: November 30, 2024 Walter MURO Attending Provider Active Sta rt: November 30, 2024 Team Status: Active Member Role Status Dates Dr. Ambrosio Monroy DO Primary Care Provider Active Start: December 07, 2024 Walter MURO Attending Provider Active Sta rt: December 07, 2024 Team Status: Inactive Member Role Status Dates Dr. Ambrosio Monroy DO Primary Care Provider Active Start: November 30, 2024 End: November 30, 2024 Walter MURO Attending Provider Active Sta rt: November 30, 2024 End: November 30, 2024 Team Status: Inactive Member Role Status Dates Dr. Ambrosio Monroy DO Primary Care Provider Active Start: December 07, 2024 End: December 07, 2024 Walter MURO Attending Provider Active Sta rt: December 07, 2024 End: December 07, 2024 Director Of Student Financial Services Relationship Specialty Start Date End Date Penny Dave MD [address] [address] Consulting General Surgery 01/17/21 Gayle Zayas MD [address] [facility] [address] [place] [phone] Consulting Infectious Diseases 12/03/21 Ambrosio [address] [facility] [address] [place], [place] [address] Home Care Provider Internal Medicine 12/03/21 Director Of Student Financial Services Relationship Specialty Start Date End Date Walter Alatorre [facility]0 [place] [phone] PCP - General Internal Medicine 05/19/24 Dashawn Grimm MD 201 [facility] 3 [place] [address] Surgeon Urology 05/05/24 Director Of Student Financial Services Relationship Specialty Start Date End Date Penny Dave MD [address] [facility] [address] [place] [address] Consulting General Surgery 01/17/21 Gayle Zayas MD [address] [address] [place] [phone] Consulting Infectious Diseases 12/03/21 Ambrosio Monroy MD [address] [address] [place] [address] Home Care Provider Internal Medicine 12/03/21 Director Of Student Financial Services Relationship Specialty Start Date End Date Penny Dave MD [address] [facility] [address] [place] [address] Consulting General Surgery 01/17/21 Gayle Zayas MD [address] [address] [place] [phone] Consulting Infectious Diseases 12/03/21 Ambrosio Monroy MD [address] [place] [address] Home Care Provider Internal Medicine 12/03/21 Director Of Student Financial Services Relationship Specialty Start Date End Date Walter Alatorre [address] [place] [phone] PCP - General Internal Medicine 05/19/24 Dashawn Grimm MD [address] [address] Surgeon Urology 05/05/24 Director Of Student Financial Services Relationship Specialty Start Date End Date Walter Alatorre [address] [place] [address] PCP - General Internal Medicine 05/19/24 Dashawn Grimm MD [address] [address] Surgeon Urology 05/05/24 Director Of Student Financial Services Relationship Specialty Start Date End Date AdrianneWalter benitez [address] [place] [address] PCP - General Internal Medicine 05/19/24 Dashawn Grimm MD [address] [address] Surgeon Urology 05/05/24 Director Of Student Financial Services Relationship Specialty Start Date End Date Juan TimmyDO [address] [place] [address] Physician Physical Medicine & Rehab/PM&R 03/05/24 Vish Howe MD [address] [place] [address] Physician Orthopaedic Surgery 06/11/24 Lizbet He DO [address] [place] [address] Physician Rheumatology 09/10/24 Faisal Kitchen DO [address] [place] [address] Physician Physical Medicine & Rehab/PM&R 09/30/24 Team Status: Inactive Member Role Status Dates Dr. Ambrosio Monroy DO Primary Care Provider Active Start: January 09, 2025 End: January 09, 2025 Walter MURO Attending Provider Active Sta rt: January 09, 2025 End: January 09, 2025 Team Status: Inactive Member Role Status Dates Dr. Ambrosio Monroy DO Primary Care Provider Active Start: February 15, 2025 End: February 15, 2025 Walter MURO Attending Provider Active Sta rt: February 15, 2025 End: February 15, 2025 Team Status: Inactive Member Role Status Dates Dr. Ambrosio Monroy DO Primary Care Provider Active Start: March 01, 2025 End: March 01, 2025 Walter MURO Attending Provider Active Sta rt: March 01, 2025 End: March 01, 2025 Director Of Student Financial Services Relationship Specialty Start Date End Date Walter Alatorre [address] [place] [address] PCP - General Internal Medicine 05/19/24 Dashawn Grimm MD [address] [address] Surgeon Urology 05/05/24 Team Status: Active Member Role Status Dates Dr. Ambrosio Monroy DO Primary Care Provider Active Start: March 01, 2025 Walter MURO Attending Provider Active Sta rt: March 01, 2025 Director Of Student Financial Services Relationship Specialty Start Date End Date Walter Alatorre [address] [place] [address] PCP - General Internal Medicine 05/19/24 Dashawn Grimm MD [address] [address] Surgeon Urology 05/05/24 Director Of Student Financial Services Relationship Specialty Start Date End Date Penny Dave MD [address] [facility] [address] [place] [address] Consulting General Surgery 01/17/21 Gayle Zayas MD [address] [place] [address] Consulting Infectious Diseases 12/03/21 Ambrosio Monroy MD [address] [place] [address] [place] [address] Home Care Provider Internal Medicine 12/03/21 Director Of Student Financial Services Relationship Specialty Start Date End Date Walter Alatorre MD [address] [facility] 8 [place] [address] PCP - General Internal Medicine 03/20/25 Penny Dave MD [address] [facility] [address] [place] [address] Consulting General Surgery 01/17/21 Gayle Zayas MD [address] [address] [place] [address] Consulting Infectious Diseases 12/03/21 Ambrsoio Monroy MD [address] [place] [address] Home Care Provider Internal Medicine 12/03/21 Director Of Student Financial Services Relationship Specialty Start Date End Date Walter Alatorre [address] [place] [phone] PCP - General Internal Medicine 05/19/24 Dashawn Grimm MD [address] [place] [address] 3 [place] [address] Surgeon Urology 05/05/24 Goals (unrecognized section and [...] since 04/16/2024 at 0816 until manually unheld 09 (Dose Auto Held - Provider: Pedro Luis [...] Maxwell, LIBRADO)1132 (Stopped - Provider: Faby Maxwell, RN) ferrous sulfate tablet 325 mg 325 mg, Oral, Daily with breakfast, First dose on Thu04/15/24 at 0800 0832 (Given - Provider: Allie Griffin RN) 0828 (Given - Provider: Allie Griffin, LIBRADO) 0905 (Given - Provider: Faby Maxwell, RN) fluconazole in NS (Diflucan) IVPB [...] LIBRADO) 0106 (Stopped - Provider: Marino Trevizo, RN) insulin glargine (Lantus) injection 45 Units 45 Units, SubCUTAneous, Nightly, First dose (after last modification) on Thu04/15/24 at 2030 210 (Given - Provider: Marino Trevizo, RN) 2027 (Given - Provider: Erika Li [...] parameters not met)1142 (Given - Provider: Allie Griffin, LIBRADO)1700 (Not Given - Provider: Allie Griffin RN - Reason: Order parameters not met) 0828 (Given - Provider: Allie Griffin RN)1220 (Given - Provider: Allie Griffin RN)1648 (Given - Provider: Allie Griffin RN) 0904 (Given - Provider: Fbay Maxwell, RN)1258 (Given - Provider: Faby Maxwell, RN)1747 (Given - Provider: Faby Maxwell, RN) Insulin Lispro (Humalog) injection 0-12 Units(Linked [...] Trevizo, LIBRADO) 2027 (Given - Provider: Erika Li, LIBRADO) linaGLIPtin (Tradjenta) tablet 5 mg 5 mg, Oral, Daily, First dose on Thu04/15/24 at 0900, Substituted for alogliptin (NESINA). 0832 (Given - Provider: Allie Griffin RN) 0828 (Given - Provider: Allie Griffin, LIBRADO) 0904 (Given - Provider: Faby Maxwell, LIBRADO) [...] Meropenem Med-Surg/Crit Care Init Dosing HARINDER 8, Shadow Graph Weight Operator cl >=50, 3h Mini-Bag Plus bag, Suspected [...] Allie Griffin RN)1948 (Stopped - Provider: Erika Li, LIBRADO) 0036 (New Bag - Provider: Erika Li RN)0336 (Stopped - Provider: Eirka Li, LIBRADO) mirtazapine (Remeron) tablet 7.5 mg 7.5 mg, Oral, Nightly, First dose on Fabiola 04/14/24 at 2245 2106 (Given - Provider: Marino Trevizo RN) 2028 (Given - Provider: Erika Li, LIBRADO) polyethylene glycol (PEG) 3350 (Miralax) packet 17 [...] at 2245 0832 (Given - Provider: Allie Griffin, LIBRADO)1525 (Given - Provider: Allie Griffin, LIBRADO)2106 (Given - Provider: Marino Trevizo, LIBRADO) 0828 (Given - Provider: Allie Griffin, LIBRADO)1620 (Given - Provider: Allie Griffin, LIBRADO)2028 (Given - Provider: Erika Li, LIBRADO) 0904 (Given - Provider: Faby Maxwell, RN)1300 (Given - Provider: Faby Maxwell, RN) sodium chloride 0.9% (NS) flush 10 mL 10 mL, IntraVENous, Every 12 hours scheduled (2 times per day), First dose on Thu04/14/24 at 2245 0834 (Given - Provider: Allie Griffin, LIBRADO)2112 (Given - Provider: Marino Trevizo, LIBRADO) 0921 (Given - Provider: Allie Griffin, LIBRADO)2100 (Given - Provider: Erika Li, LIBRADO) 0905 (Given - Provider: Faby Maxwell, LIBRADO) tamsulosin (Flomax) 24 hr capsule 0.4 mg 0.4 mg, Oral, Daily, First dose on Thu04/15/24 at 0900, Do not crush, chew, or split. 0832 (Given - Provider: Allie Griffin RN) 0828 (Given - Provider: Allie Griffin, LIBRADO) 0904 (Given - Provider: Faby Maxwell, LIBRADO) [...] times daily PRN, muscle spasms, Starting on Faibola 04/14/24 at 2240 dextrose 5 % infusion 100 mL/hr, IntraVENous, PRN, Blood sugar less than 70mg/dL, Starting on Fabiola 04/14/24 at 2240, Start infusion following administration of [...] does not have IV access., Starting on Fabiola 04/14/24 at 2240, After administration, attempt intravenous access and start D5W at 100 mL/hr. Repeat blood glucose in 15 minutes x2 and notify provider. glucose oral gel 15 g 15 g, Oral, As needed, low blood sugar, Starting on Faboila 04/14/24 at 2240, If blood glucose less than [...] sedation for opioid reversal - MUST notify specialty finishing utility person provider immediately after first dose, may give [...] frequent line interruptions/ long duration, Starting on Fabiola 04/14/24 at 2240, For piggyback infusion, administer at [...] mL, IntraVENous, PRN, line care, Starting on Fabiola 04/14/24 at 2240, After every IV line use Linked Groups Order Group 1: Insulin Lispro (Humalog) injection 0-12 UnitsJump to med 0-12 Units, SubCUTAneous, 3 times daily with meals, First dose on [facility] 04/16/24 at 0830, Medium Dose Correction Algorithm Glucose: Dose: LESS than 139 No Insulin 140-199 2 Unit 200-249 4 Units 250-299 6 Units 300-349 8 Units 350-400 10 Units Above 400 12 Units And Insulin Lispro (Humalog) injection 0-12 UnitsJump to med 0-12 Units, SubCUTAneous, Nightly, First dose on [facility] 04/16/24 at 2100, If continuous tube feedings/TPN/NPO, [...] than 100.4 F (38 C), Starting on [facility] 04/14/24 at 2240, Maximum dose of acetaminophen [...] split. 1910 (Given - Provider: Carmel Merritt, RN) 0839 (Given - Provider: Bianca Rodgers, LIBRADO) ceFAZolin in dextrose 4% (Ancef) IVPB 2,000 mg (COMPLETED) 2,000 mg, IntraVENous, Administer over 30 Minutes, Yarder Puncher to O.R., On Fabiola 05/05/24 at 1115, For 1 dose, Preprocedure, Administer 60 minutes prior to surgery. premix bag, Suspected Indication (Select all that apply): Surgical Prophylaxis 153 (Given - Provider: Jj Flores CRNA) cefTRIAXone (Rocephin) 1,000 mg in sodium chloride 0.9 % 50 mL IVPB Mini-Bag Plus 1,000 mg, IntraVENous, at 100 mL/hr, Administer over 30 Minutes, Every 24 hours, First dose on Thu05/05/24 at 2300, Mini-Bag Plus bag, Suspected Indication (Select all that apply): Urinary Tract Infection 2259 (New Bag - Provider: Rosemary Suggs, LIBRADO)2329 [...] at 2100 205 (Given - Provider: Rosemary Suggs RN) 2100 [...] % injection (CANCELED) As needed, Starting on Thu05/05/24 at 1631, Intraprocedure 1631 (Given - Provider: Dashawn Grimm MD) naloxone (Narcan) injection 0.4 mg 0.4 mg, IntraVENous, Every 5 min PRN, opioid reversal, respiratory depression, Starting on Thu05/05/24 at 1816, +++ For RR <10, pinpoint pupils, over sedation for opioid reversal - MUST notify specialty finishing utility person provider immediately after first dose, may give [...] at 1541, Intraprocedure 1541 (Given - Provider: Dashawn Grimm MD) sterile water irrigation solution (CANCELED) As needed, Starting on Thu05/05/24 at 1538, Intraprocedure 1538 (Given - Provider: Dashawn Grimm MD)1602 (Given - Provider: Dashawn Grimm MD)1612 (Given - Provider: Dashawn Grimm MD) stomahesive in petrolatum (ET Mix) Topical, [...] LIBRADO)1308 (New Bag - Provider: Dedrick Martin, LIBRADO)1708 (Stopped - Provider: Dedrick Martin RN) docusate sodium (Colace) capsule 100 mg 100 mg, Oral, 2 times daily, First dose on Thu05/18/24 at 0900 0900 (Not Given - Provider: Dedrick Martin RN - Reason: Patient/family refused)2045 (Not Given - Provider: Aleksandra Enamorado RN - Reason: Patient/family refused) 0837 (Given - Provider: Elly Cormier RN)2109 (Given - Provider: Bev Carey RN) 0812 [...] 231) 0800 (Not Given - Provider: Elly Cormeir RN - Reason: Order parameters not met [...] 12 Units 2045 (Given - Provider: Aleksandra Enamorado RN) 2109 (Given - Provider: Bev Carey, RN) 2099 (Canceled Entry - Provider: Automatic Discharge Provider - Comment: Automatically canceled at discontinue of medication order) mirtazapine (Remeron) tablet 7.5 mg 7.5 mg, Oral, Nightly, First dose on Thu05/18/24 at 2100 2045 (Given - Provider: Aleksandra Enamorado RN) 2109 (Given - Provider: Bev Carey RN) 2099 (Canceled Entry - Provider: Automatic Discharge Provider - Comment: Automatically canceled at discontinue of medication order) oxyCODONE (Roxicodone) immediate release tablet 15 mg 15 mg, Oral, 4 times daily, First dose on Thu05/19/24 at 1700 0839 (Given - Provider: Dedrick Martin RN)1308 (Given - Provider: Dedrick Martin RN)1834 (Given - Provider: Dedrick Martin, LIBRADO)2203 (Given - Provider: Aleksandra Enamorado RN) 0837 (Given - Provider: Elly Cormier [...] Dedrick Martin RN)2046 (Given - Provider: Aleksandra Enamorado RN) 0837 (Given - Provider: Elly Cormier [...] Kim Benz RN)1101 (Given - Provider: Dedrick Martin, RN)2052 (Given - Provider: Aleksandra Enamorado, RN) 0339 (Given - Provider: Aleksandra Enamorado, RN) naloxone (Narcan) injection 0.4 mg 0.4 mg, IntraVENous, Every 5 min PRN, opioid reversal, respiratory depression, Starting on Thu05/18/24 at 0051, +++ For RR <10, pinpoint pupils, over sedation for opioid reversal - MUST notify specialty finishing utility person provider immediately after first dose, may give [...] sodium chloride 0.9 % 100 mL IVPB (Add-Lacona) 3,000 mg, IntraVENous, at 200 mL/hr, Administer over 30 Minutes, Every 6 hours, First dose on Thu04/26/25 at 1230, ADD-Lacona bag, Suspected Indication (Select all that apply): [...] King RN)1608 (New Bag - Provider: Joann King, LIBRADO)1659 [...] King RN) 0853 (Given - Provider: Cheryl Foster, LIBRADO)212 (Given - Provider: Valarie King RN) 0908 (Given - Provider: Joann King, LIBRADO)2100 (Canceled Entry - Provider: Automatic Discharge Provider - Comment: Automatically canceled at discontinue of medication order) chlorhexidine (Hibiclens) 4 % solution Topical, Daily, First dose on Thu04/23/25 at 1400 1305 (Given - Provider: Christel Brower RN) 1356 (Given - Provider: Cheryl Foster, LIBRADO) 1322 (Given - Provider: Joann King, LIBRADO) DULoxetine (Cymbalta) DR capsule 30 mg 30 mg, Oral, Daily, First dose on Thu04/22/25 at 0800, Do not crush or chew. 0807 (Given - Provider: Christel Brower RN) 0853 (Given - Provider: Cheryl Foster RN) 0908 (Given - Provider: Joann King RN) ferrous sulfate tablet 325 mg 325 mg, Oral, Daily with breakfast, First dose on Thu04/22/25 at 0800, On hold since Thu04/26/2025 at 0925 until manually unheld 0807 (Given - Provider: Christel Brower RN)0925 (Held [...] 18 Units 0808 (Given - Provider: Christel Brower, RN)1244 (Given - Provider: Christel Brower RN)1704 [...] 18 Units 2105 (Given - Provider: Valarie King, LIBRADO) 2124 (Not Given - Provider: Valarie King [...] Joann King, LIBRADO)1023 (Stopped - Provider: Joann King RN) meropenem [...] Joann King, LIBRADO)1608 (Given - Provider: Joann King, LIBRADO)2100 (Canceled [...] at 0900 0807 (Given - Provider: Christel Brower, RN)1244 (Given - Provider: Christel Brower RN)1704 (Given - Provider: Christel Brower RN)2101 (Given - Provider: Valarie King RN) 0852 (Given - Provider: Cheryl Foster RN)1354 (Given - Provider: Cheryl Foster RN)1727 (Given - Provider: Cheryl Foster RN)2124 (Given - Provider: Valarie King RN) 0908 (Given - Provider: Joann King RN)1321 (Given - Provider: Joann King RN)1745 (Given - Provider: Joann King RN)2100 (Canceled [...] Valarie King RN - Reason: Patient/family refused) 0907 (Not Given - Provider: Joann King RN [...] RN) 0908 (Given - Provider: Joann King, LIBRADO)1321 (Given - Provider: Joann King RN)2100 (Canceled [...] King RN)1244 (New Bag - Provider: Christel Brower, LIBRADO)1508 (Stopped - Provider: Christel Brower, RN) 0046 (New Bag - Provider: Valarie King RN)0247 (Stopped - Provider: Valarie King RN)1222 (New Bag - Provider: Cheryl Foster, [...] at 0237 0807 (Given - Provider: Christel Brower, RN)2100 (Given - Provider: Valarie King, LIBRADO) [id number] (Given - Provider: Cheryl Foster, LIBRADO)[id number] (Given - Provider: Valarie King, RN) dextrose 5 % infusion 100 mL/hr, [...] BE BASED ON THE PRIMARY CLINICAL RECORDS. [email or web address] [facility]. provides no warranty or guarantee of the accuracy or completeness of information in this document.
[2025-05-11 09:34] LABS: Vancomycin, Trough Level 16.8 ug/mL (5.0-15.0)
== END ==
LOC: OLS.SANC 05:00
PROVIDERS: PCP Family Medicine; Visit Provider Internal Medicine
DX: Z79.899 Other long term (current) drug therapy (principal)
CPT/HCPCS: 36415; 80202

== ENCOUNTER → 2025-05-15 04:00 | Outpatient (REF) | payer MEDICAID, SELFPAY ==
[2025-05-15 10:37] LABS: Hematocrit 39.5 % (40-54); Hemoglobin 12.6 g/dL (13.0-16.5); Mean Corp Hgb Conc 31.9 g/dL (32-36); Mean Corpuscular Volume 91.9 fL (80-94); Mean Platelet Vol. 10.2 fl (6.2-12.0); Platelet Count 201 K/mm3 (150-450); RBC Distribution Width CV 16.4 % (11.6-14.6); RBC Distribution Width SD 54.9 fl (35.1-43.9); Red Blood Count 4.30 M/mm3 (4.6-6.2); White Blood Count 5.5 K/mm3 (4.4-11.0)
[2025-05-15 10:56] LABS: AST(SGOT) 28 U/L (<=37); Alanine Aminotransfer ALT/SGPT 20 U/L (<=46); Albumin, Serum 3.4 g/dL (3.4-4.8); Alkaline Phosphatase 133 U/L (40-129); Anion Gap 12 (5-15); BUN 9 mg/dL (4-19); BUN/Creat Ratio 17.5 RATIO (10-20); Calcium,Total 8.9 mg/dL (7.6-11.0); Carbon Dioxide 21.6 mmol/L (21.0-32.0); Chloride 106 mmol/L (98-108); Globulin 3.6 g/dL (2.2-4.2); Glucose 76 mg/dL (70-99); Potassium 3.6 mmol/L (3.3-5.1)
[2025-05-15 10:59] LABS: Vancomycin, Trough Level 17.6 ug/mL (5.0-15.0)
== END ==
LOC: OLS.SANC 04:00
PROVIDERS: PCP Family Medicine; Referring Provider Internal Medicine; Visit Provider Internal Medicine
DX: L89.320 Pressure ulcer of left buttock, unstageable (principal)
CPT/HCPCS: 36415; 80053; 80202; 85027

== ENCOUNTER → 2025-05-22 | Outpatient (REF) | payer MEDICAID, SELFPAY ==
[2025-05-22 09:02] LABS: Hematocrit 38.6 % (40-54); Hemoglobin 12.2 g/dL (13.0-16.5); Mean Corp Hgb Conc 31.6 g/dL (32-36); Mean Corpuscular Volume 92.1 fL (80-94); Mean Platelet Vol. 11.1 fl (6.2-12.0); Platelet Count 226 K/mm3 (150-450); RBC Distribution Width CV 16.3 % (11.6-14.6); RBC Distribution Width SD 55.2 fl (35.1-43.9); Red Blood Count 4.19 M/mm3 (4.6-6.2); White Blood Count 7.5 K/mm3 (4.4-11.0)
[2025-05-22 09:18] LABS: AST(SGOT) 17 U/L (<=37); Alanine Aminotransfer ALT/SGPT 15 U/L (<=46); Albumin, Serum 3.1 g/dL (3.4-4.8); Alkaline Phosphatase 124 U/L (40-129); Anion Gap 12 (5-15); BUN 8 mg/dL (4-19); BUN/Creat Ratio 15.9 RATIO (10-20); Calcium,Total 8.7 mg/dL (7.6-11.0); Carbon Dioxide 20.9 mmol/L (21.0-32.0); Chloride 106 mmol/L (98-108); Globulin 3.6 g/dL (2.2-4.2); Glucose 109 mg/dL (70-99); Potassium 3.8 mmol/L (3.3-5.1)
== END | disposition home or self-care (01) ==
LOC: OLS.SANC 04:00
PROVIDERS: PCP Family Medicine; Referring Provider Internal Medicine; Visit Provider Internal Medicine
DX: Z79.899 Other long term (current) drug therapy
CPT/HCPCS: 36415; 80053; 85027

== ENCOUNTER → 2025-05-25 | Outpatient (REF) | payer MEDICAID, SELFPAY ==
--- OUTSIDE RECORDS SUMMARY | 2025-05-25 05:09 | XMS RPT_ITS | CCD ---
Author Organization [facility] Care Team Providers Care Roof Bolter Name Role Phone YARITZA, GALE A Unavailable [...] Unavailable Esterle, Ambrosio M Primary Care Provider YARITZA, GALE Admitting Unavailable [facility]O [facility] Consulting Unavailable ESTERLE, AMBROSIO M Primary Care [...] Ambrosio M Primary Care Provider Jorge IRWIN, Dashawn Enriquez Unavailable Ambrosio Monroy DO Primary Care Provider [phone] Tab Dupont Primary Care Provider Otis Mejia MD Unavailable Giuliano Shultz DO Unavailable Blanco BAUGH, Faisal Unavailable BERNA JOHNSON Referring Unavailable PROVIDER, UNKNOWN Attending Unavailable PROVIDER, UNKNOWN Admitting Unavailable PROVIDER, UNKNOWN Attending Unavailable PROVIDER, UNKNOWN Admitting Unavailable PLACEWAY, VAISHALI Referring Unavailable FAISAL SIMEON Attending Unavailable PROVIDER, UNKNOWN Admitting Unavailable PROVIDER, UNKNOWN Admitting Unavailable PLACEWAY, VAISHALI Referring Unavailable JACKIE, OTIS Vasques Attending Unavailable PROVIDER, UNKNOWN Attending Unavailable PROVIDER, UNKNOWN Admitting Unavailable PLACEWAY, VAISHALI Referring Unavailable JACKIE, OTIS Vasques Referring Unavailable PROVIDER, UNKNOWN Attending [...] UNKNOWN Attending Unavailable PROVIDER, UNKNOWN Admitting Unavailable OTIS MEJIA Referring Unavailable Eliana BAUGH, Dr. Ambrosio Ayala Primary Care Provider [phone] Tab Joshi Attending Provider Unavailab Tab Benson Referring Provider UnavailDr. Daisy Matthews MD Attending Provider Dr. Daisy Garay MD Referring Provider Cindyva Dr. Ambrosio Sanchez DO Primary Care Provider [phone] Tab Joshi Attending Provider Unavailab Tab Benson Referring Provider UnavailDr. aDisy Matthews MD Attending Provider Dr. Daisy Garay MD Referring Provider Penny De La Cruz MD Unavailable Gayle Scott MD Unavailable Ambrosio Monroy MD Unavailable Dr. Ambrosio Monroy DO Primary Care Provider [phone] Tab Joshi Attending Provider Unavailab KRISTINE Foster [...] able TAB DUPONT Primary Care Unavaila ble KIAH, TAB Primary Care Unavailable GEORGETTE BUENO Admitting Unavailable BERHANE MORENO Attending Unavailable JO-ANN ORTIZ Consulting Unavailable KODAKANDLA, NARSIMHA Admitting Unavailable PARVIN MAHAJAN Attending Unavailabl e TAB DUPONT Primary Care Unavailable YOANA SOLITARIO Attending Unavailable ADRIANNESAROS, PETER Primary Care Unavailable Esterle, Ambrosio M Primary Care Unavailable Katsaros Tab MURO Attending Unavailable Esterle, Ambrosio M Primary Care Unavailable Adriannesaros Tab MURO Attending Unavailable Tab Joshi Referring Unavailable Esterle, Ambrosio M Primary Care Unavailable Adriannesaros Tab MURO Attending Unavailable Esterle, Ambrosio M Primary Care Unavailable Katsaros JINA, Tab Attending Unavailable Esterle, Ambrosio M Primary Care Unavailable Katsaros Tab MURO Attending Unavailable Esterle, Ambrosio M Primary Care Unavailable Katsaros Tab MURO Attending Unavailable Esterle, Ambrosio M Primary Care Unavailable Katsaros Tab MURO Attending Unavailable Costello Daisy MURO Referring Unavailable Esterle, Ambrosio M Primary Care Unavailable Costello OLSDaisy Attending Unavailable Esterle, Ambrosio M Primary Care [...] Esterle, Ambrosio M Primary Care Unavailable Katsaros OLS, Peter Attending Unavailable Ambrosio Monroy Primary Care Unavailable Tab Joshi Attending Unavailable Yudith Monroya Jamie Primary Care Unavailable Tab Joshi Attending Unavailable Yudith Monroya Jamie Primary Care Unavailable Tab Joshi Attending Unavailable Eliana Ambrosio M Primary Care Unavailable Tab Joshi Attending Unavailable Eliana Ambrosio Jamei Primary Care Unavailable Tab Joshi Attending Unavailable Yudith Monroya Jamie Primary Care Unavailable Tab Joshi Attending Unavailable Medications Current Medications Medication Drug Class(es) [...] 4 HOURS PRN, Other, Pain (1-10), Starting Thu10/24/20 at 1942 Give in addition to any [...] Inject 825 mg intravenously q 24 [place]. 57551 mg 0 01/24/2022 02/25/2022 Active Comment on [...] 0 01/24/2022 Active take 1 capsule by [facility] twice daily gabapentin (NEURONTIN) 300 MG capsule Take 300 mg by mouth 2 times daily 0 Active Comment on above: Take 1 capsule by [facility] every 12 hours for 30 days. [...] on above: Take 3 tablets by mo uth daily at bedtime. meloxicam 7.5 mg oral [...] on above: Take 1 tablet by [facility] four times daily as needed. sulfamethoxazole 800 [...] Start: 04-29-2025 take [address] [facility] once daily tamsulosin (Flomax) 0.4 MG [...] Comment on above: Take 1 capsule by [facility] once daily. therapeutic multivitamin-minera ls (THERA-M PLUS) 9 mg iron-400 mcg tablet (3 sources) therapeutic multivitamin-hand cloth examiner als (THERA-M PLUS) 9 mg iron-400 mcg tablet Take 1 tablet by mouth once daily. Active Vancomycin (6 sources) Glycopeptide Antibacterial Start: End: take 1500 mg intravenously every twelve [...] sodium chloride 0.9 % 100 mL IVPB (Add-Wallingford) (2 sources) Start: 04-26-2025 End: 04-29-2025 take 3000 mg intravenously every six hours 3,000 mg, IntraVENous, at 200 mL/hr, Administer over 30 Minutes, Every 6 hours, First dose on Thu04/26/25 at 1230, ADD-[place] bag, Suspected Indication (Select all that apply): [...] gastroesophageal reflux disease take 2 tablets by [facility] every eight hours as needed for gastroesophageal [...] hour 125 mL/hr, IntraVENous, Continuous, Starting on 04/24/25 at 0900, Recovery (only) Start: 05-05-2024 End: [...] Comment on above: Take 1 capsule by [facility] twice daily. docusate sodium 50 mg / sennosides, long-term 8.6 mg oral tablet (20 sources) Start: 02-22-2025 End: 04-29-2025 take 2 tablets by mouth twice daily 2 tablet, Oral, 2 times daily, First dose on 04/22/25 at 0245 Start: 01-24-2022 take 1 tablet by [facility] twice daily senna-docusate (SENNA-S) 8.6-50 mg per [...] Active Start: 06-18-2017 take 1 capsule by [facility] once daily DULoxetine (CYMBALTA) 60 MG extended [...] Pain, Starting on Fabiola 05/05/24 at 1658 piperacillin 3000 mg / tazobactam [...] for gram positive cocci polyethylene glycol 3350 69288 mg powder for oral solution (20 sources) [...] on above: Take 1 Packet by [facility] once daily as needed. Dissolve dose in [...] Start: 01-24-2022 take 1 tablet by [facility] once daily potassium chloride ER (K-DUR, KLOR-CON) 20 mEq tablet Take 1 tablet by mouth once daily. 01/24/2022 Active Comment on above: Take 1 tablet by [facility] once daily. pregabalin 200 mg oral capsu [...] Comment on above: Take 1 tablet by [facility] once daily. 10 ml sodium bicarbonate [...] sources) Anemia, unspecified; Translations: [Anemia, unspecified] Onset: 5 Episodic Diabetes mellitus with complications (11 sources) [...] sources) Long-term current use of antibiotic; Translations: [long term care pharmacist (current) use of antibiotics] Onset: 5 02-17-2025 Episodic Other aftercare (2 sources) Other predatory animal exterminator (current) drug therapy; Translations: [Other predatory animal exterminator (current) drug therapy] Onset: 5 Episodic Other connective tissue disease (1 source) [...] Translations: [Septic shock (HCC)] Onset: 5 Episodic Skin and subcutaneous tissue infections (20 sources) Pilonidal cyst; Translations: [Pilonidal cyst without abscess] Onset: 9 Resolved: 0 10-15-2020 Episodic Spinal cord injury (4 sources) Injury [...] Onset: 05-27-2017 Episodic Other aftercare (1 source) long term care pharmacist (current) use of insulin; Translations: [Type 2 diabetes mellitus with hyperglycemia, with long-term current use of insulin (HCC)] Onset: 01-04-2022 Episodic 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 infection and poliomyelitis (8 sources) Epidural abscess; [...] [Sepsis, unspecified organism] Onset: 04-14-2024 04-14-2024 Episodic Sprains and strains (20 sources) Sprain of hip; Translations: [Unspecified sprain of unspecified hip, initial encounter] Onset: 01-06-2017 01-06-2017 Episodic Unclassified (1 source) Encounter for other preprocedural examination; Translations: [Encounter for other preprocedural examination] Onset: 08-03-2017 Unclassified (5 sources) NO SHOW Onset: 08-31-2013 Resolved: 05-29-2020 05-29-2020 Results Test Name Value Interpretation Reference Range Facility CBC-Complete Blood Cnt No Di ffon 05-22-2025 Erythrocyte distribution width (RBC) [Ratio] 16.3 % High 11.6-14.6 [facility] Comment on above: Order Comment: SRIKANTH TER SPECIMEN Performed By: #### L 400.0001, #### [facility] [address] [place], [address] Hematocrit (Bld) [Volume fraction] 38.6 % Low 40-54 [facility] Comment on above: Order Comment: SRIKANTH TER SPECIMEN Performed By: #### L 400.0001, #### [facility] [address] [place], [address] Hemoglobin (Bld) [Mass/Vol] 12.2 g/dL Low 13.0-16.5 [facility] Comment on above: Order Comment: SRIKANTH TER SPECIMEN Performed By: #### L 400.0001, #### [facility] [address] [place], [address] MCH (RBC) [Entitic mass] 29.1 pg Normal 27.0-32.0 [facility] Comment on above: Order Comment: SRIKANTH TER SPECIMEN Performed By: #### L 400.0001, #### [facility] [address] [place], [address] MCHC (RBC) [Mass/Vol] 31.6 g/dL Low 32-36 [facility] Comment on above: Order Comment: SRIKANTH TER SPECIMEN Performed By: #### L 400.0001, #### [facility] [address] [place], [address] MCV (RBC) [Entitic vol] 92.1 fL Normal 80-94 [facility] Comment on above: Order Comment: SRIKANTH TER SPECIMEN Performed By: #### L 400.0001, #### [facility] [address] [place], [address] Platelet mean volume (Bld) [Entitic vol] 11.1 fL Normal 6.2-12.0 [facility] Comment on above: Order Comment: SRIKANTH TER SPECIMEN Performed By: #### L 400.0001, #### [facility] [address] [place], [address] Platelets (Bld) [#/Vol] 226 10*3/uL Normal 150-450 [facility] Comment on above: Order Comment: SRIKANTH TER SPECIMEN Performed By: #### L 400.0001, #### [facility] [address] [place], [address] RBC (Bld) [#/Vol] 4.19 10*6/uL Low 4.6-6.2 [facility] Comment on above: Order Comment: SRIKANTH TER SPECIMEN Performed By: #### L 400.0001, #### [facility] [address] [place], [address] RDW SD 55.2 fl High 35.1-43.9 [facility] Comment on above: Order Comment: SRIKANTH TER SPECIMEN Performed By: #### L 400.0001, #### [facility] [address] [place], [address] WBC (Bld) [#/Vol] 7.5 10*3/uL Normal 4.4-11.0 [facility] Comment on above: Order Comment: SRIKANTH TER SPECIMEN Performed By: #### L 400.0001, #### [facility] [address] [place], [address] Comprehensive Metabolic Prof ilon 05-22-2025 Albumin [Mass/Vol] 3.1 g/dL Low 3.4-4.8 [facility] Comment on above: Order Comment: SRIKANTH TER SPECIMEN Performed By: #### L 400.0001, #### [facility] [address] [place], [address] Albumin/Globulin [Mass ratio] 0.9 {ratio} Normal 0.9-2.4 [facility] Comment on above: Order Comment: SRIKANTH TER SPECIMEN Performed By: #### L 400.0001, #### [facility] [address] [place], [address] ALK PHOS 124 U/L Normal 40-129 [facility] Comment on above: Order Comment: SRIKANTH TER SPECIMEN Performed By: #### L 400.0001, #### [facility] [address] [place], [address] ALT [Catalytic activity/Vol] 15 U/L Normal <=46 [facility] Comment on above: Order Comment: SRIKANTH TER SPECIMEN Performed By: #### L 400.0001, #### [facility] [address] [place], [address] AST [Catalytic activity/Vol] 17 U/L Normal <=37 [facility] Comment on above: Order Comment: SRIKANTH TER SPECIMEN Performed By: #### L 400.0001, #### [facility] [address] [place], [address] Bilirubin [Mass/Vol] 0.31 mg/dL Normal 0.00-1.30 [facility] Comment on above: Order Comment: SRIKANTH TER SPECIMEN Performed By: #### L 400.0001, #### [facility] [address] [place], [address] BUN/CRE 15.9 RATIO Normal 10-20 [facility] Comment on above: Order Comment: SRIKANTH TER SPECIMEN Performed By: #### L 400.0001, #### [facility] [address] [place], [address] Calcium [Mass/Vol] 8.7 mg/dL Normal 7.6-11.0 [facility] Comment on above: Order Comment: SRIKANTH TER SPECIMEN Performed By: #### L 400.0001, #### [facility] [address] [place], [address] Chloride [Moles/Vol] 106 mmol/L Normal 98-108 [facility] Comment on above: Order Comment: SRIKANTH TER SPECIMEN Performed By: #### L 400.0001, #### [facility] [address] [place], [address] CO2 [Moles/Vol] 20.9 mmol/L Low 21.0-32.0 [facility] Comment on above: Order Comment: SRIKANTH TER SPECIMEN Performed By: #### L 400.0001, #### [facility] [address] [place], [address] Creatinine [Mass/Vol] 0.50 mg/dL Low 0.70-1.20 [facility] Comment on above: Order Comment: SRIKANTH TER SPECIMEN Performed By: #### L 400.0001, #### [facility] [address] [place], [address] GAP 12 Normal 5-15 [facility] Comment on above: Order Comment: SRIKANTH TER SPECIMEN Performed By: #### L 400.0001, #### [facility] [address] [place], [address] GFR/1.73 sq M.predicted among non-blacks MDRD (S/P/Bld) [Vol rate/Area] 114 mL/min/{1.73_m2} Normal >60 [facility] Comment on above: Order Comment: SRIKANTH TER SPECIMEN Result Comment: mL/m in/1.73m2 CKD-EPI Creatinine Equation (2020) Performed By: #### L 400.0001, #### [facility] [address] [place], [address] Globulin (S) [Mass/Vol] 3.6 g/dL Normal 2.2-4.2 [facility] Comment on above: Order Comment: SRIKANTH TER SPECIMEN Performed By: #### L 400.0001, #### [facility] [address] [place], [address] Glucose [Mass/Vol] 109 mg/dL High 70-99 [facility] Comment on above: Order Comment: SRIKANTH TER SPECIMEN Performed By: #### L 400.0001, #### [facility] [address] [place], [address] Potassium [Moles/Vol] 3.8 mmol/L Normal 3.3-5.1 [facility] Comment on above: Order Comment: SRIKANTH TER SPECIMEN Performed By: #### L 400.0001, #### [facility] [address] [place], [address] Sodium [Moles/Vol] 139 mmol/L Normal 133-145 [facility] Comment on above: Order Comment: SRIKANTH TER SPECIMEN Performed By: #### L 400.0001, M100.2200 #### [facility] [address] [place], [address] T PROT 6.7 g/dL Normal 5.9-8.4 [facility] Comment on above: Order Comment: SRIKANTH TER SPECIMEN Performed By: #### L 400.0001, M100.2200 #### [facility] [address] [place], [address] Urea nitrogen [Mass/Vol] 8 mg/dL Normal 4-19 [facility] Comment on above: Order Comment: SRIKANTH TER SPECIMEN Performed By: #### L 400.0001, M100.2200 #### [facility] [address] [place], [address] CBC-Complete Blood Cnt No Di ffon 05-15-2025 Erythrocyte distribution width (RBC) [Ratio] 16.4 % High 11.6-14.6 [facility] Comment on above: Order Comment: 301.2 Performed By: #### L 100.0500, L500.4050, L501.6710, L101.9900 #### [facility] [address] [place], [address] Hematocrit (Bld) [Volume fraction] 39.5 % Low 40-54 [facility] Comment on above: Order Comment: 301.2 Performed By: #### L 100.0500, L500.4050, L501.6710, L101.9900 #### [facility] [address] [place], [address] Hemoglobin (Bld) [Mass/Vol] 12.6 g/dL Low 13.0-16.5 [facility] Comment on above: Order Comment: 301.2 Performed By: #### L 100.0500, L500.4050, L501.6710, L101.9900 #### [facility] [address] [place], [address] MCH (RBC) [Entitic mass] 29.3 pg Normal 27.0-32.0 [facility] Comment on above: Order Comment: 301.2 Performed By: #### L 100.0500, L500.4050, L501.6710, L101.9900 #### [facility] [address] [place], [address] MCHC (RBC) [Mass/Vol] 31.9 g/dL Low 32-36 [facility] Comment on above: Order Comment: 301.2 Performed By: #### L 100.0500, L500.4050, L501.6710, L101.9900 #### [facility] [address] [place], [address] MCV (RBC) [Entitic vol] 91.9 fL Normal 80-94 [facility] Comment on above: Order Comment: 301.2 Performed By: #### L 100.0500, L500.4050, L501.6710, L101.9900 #### [facility] [address] [place], [address] Platelet mean volume (Bld) [Entitic vol] 10.2 fL Normal 6.2-12.0 [facility] Comment on above: Order Comment: 301.2 Performed By: #### L 100.0500, L500.4050, L501.6710, L101.9900 #### [facility] [address] [place], [address] Platelets (Bld) [#/Vol] 201 10*3/uL Normal 150-450 [facility] Comment on above: Order Comment: 301.2 Performed By: #### L 100.0500, L500.4050, L501.6710, L101.9900 #### [facility] [address] [place], [address] RBC (Bld) [#/Vol] 4.30 10*6/uL Low 4.6-6.2 [facility] Comment on above: Order Comment: 301.2 Performed By: #### L 100.0500, L500.4050, L501.6710, L101.9900 #### [facility] [address] [place], [address] RDW SD 54.9 fl High 35.1-43.9 [facility] Comment on above: Order Comment: 301.2 Performed By: #### L 100.0500, L500.4050, L501.6710, L101.9900 #### [facility] [address] [place], [address] WBC (Bld) [#/Vol] 5.5 10*3/uL Normal 4.4-11.0 [facility] Comment on above: Order Comment: 301.2 Performed By: #### L 100.0500, L500.4050, L501.6710, L101.9900 #### [facility] [address] [place], [address] Comprehensive Metabolic Prof [facility] 05-15-2025 Albumin [Mass/Vol] 3.4 g/dL Normal 3.4-4.8 [facility] Comment on above: Order Comment: 301.2 Performed By: #### L 100.0500, L500.4050, L501.6710, L101.9900 #### [facility] [address] [place], [address] Albumin/Globulin [Mass ratio] 0.9 {ratio} Normal 0.9-2.4 [facility] Comment on above: Order Comment: 301.2 Performed By: #### L 100.0500, L500.4050, L501.6710, L101.9900 #### [facility] [address] [place], [address] ALK PHOS 133 U/L High 40-129 [facility] Comment on above: Order Comment: 301.2 Performed By: #### L 100.0500, L500.4050, L501.6710, L101.9900 #### [facility] [address] [place], [address] ALT [Catalytic activity/Vol] 20 U/L Normal <=46 [facility] Comment on above: Order Comment: 301.2 Performed By: #### L 100.0500, L500.4050, L501.6710, L101.9900 #### [facility] [address] [place], [address] AST [Catalytic activity/Vol] 28 U/L Normal <=37 [facility] Comment on above: Order Comment: 301.2 Performed By: #### L 100.0500, L500.4050, L501.6710, L101.9900 #### [facility] [address] [place], [address] Bilirubin [Mass/Vol] 0.43 mg/dL Normal 0.00-1.30 [facility] Comment on above: Order Comment: 301.2 Performed By: #### L 100.0500, L500.4050, L501.6710, L101.9900 #### [facility] [address] [place], [address] BUN/CRE 17.5 RATIO Normal 10-20 [facility] Comment on above: Order Comment: 301.2 Performed By: #### L 100.0500, L500.4050, L501.6710, L101.9900 #### [facility] [address] [place], [address] Calcium [Mass/Vol] 8.9 mg/dL Normal 7.6-11.0 [facility] Comment on above: Order Comment: 301.2 Performed By: #### L 100.0500, L500.4050, L501.6710, L101.9900 #### [facility] [address] [place], [address] Chloride [Moles/Vol] 106 mmol/L Normal 98-108 [facility] Comment on above: Order Comment: 301.2 Performed By: #### L 100.0500, L500.4050, L501.6710, L101.9900 #### [facility] [address] [place], [address] CO2 [Moles/Vol] 21.6 mmol/L Normal 21.0-32.0 [facility] Comment on above: Order Comment: 301.2 Performed By: #### L 100.0500, L500.4050, L501.6710, L101.9900 #### [facility] [address] [place], [address] Creatinine [Mass/Vol] 0.52 mg/dL Low 0.70-1.20 [facility] Comment on above: Order Comment: 301.2 Performed By: #### L 100.0500, L500.4050, L501.6710, L101.9900 #### [facility] [address] [place], [address] GAP 12 Normal 5-15 [facility] Comment on above: Order Comment: 301.2 Performed By: #### L 100.0500, L500.4050, L501.6710, L101.9900 #### [facility] [address] [place], [address] GFR/1.73 sq M.predicted among non-blacks MDRD (S/P/Bld) [Vol rate/Area] 113 mL/min/{1.73_m2} Normal >60 [facility] Comment on above: Order Comment: 301.2 Result Comment: mL/m in/1.73m2 CKD-EPI Creatinine Equation (2020) Performed By: #### L 100.0500, L500.4050, L501.6710, L101.9900 #### [facility] [address] [place], [address] Globulin (S) [Mass/Vol] 3.6 g/dL Normal 2.2-4.2 [facility] Comment on above: Order Comment: 301.2 Performed By: #### L 100.0500, L500.4050, L501.6710, L101.9900 #### [facility] [address] [place], [address] Glucose [Mass/Vol] 76 mg/dL Normal 70-99 [facility] Comment on above: Order Comment: 301.2 Performed By: #### L 100.0500, L500.4050, L501.6710, L101.9900 #### [facility] [address] [place], [address] Potassium [Moles/Vol] 3.6 mmol/L Normal 3.3-5.1 [facility] Comment on above: Order Comment: 301.2 Performed By: #### L 100.0500, L500.4050, L501.6710, L101.9900 #### [facility] [address] [place], [address] Sodium [Moles/Vol] 139 mmol/L Normal 133-145 [facility] Comment on above: Order Comment: 301.2 Performed By: #### L 100.0500, L500.4050, L501.6710, L101.9900 #### [facility] [address] [place], [address] T PROT 7.0 g/dL Normal 5.9-8.4 [facility] Comment on above: Order Comment: 301.2 Performed By: #### L 100.0500, L500.4050, L501.6710, L101.9900 #### [facility] [address] [place], [place], [address] Urea nitrogen [Mass/Vol] 9 mg/dL Normal 4-19 [facility] Comment on above: Order Comment: 301.2 Performed By: #### L 100.0500, L500.4050, L501.6710, L101.9900 #### [facility] [address] [place], [address] Vancomycin, Trough Levelon 0 - VANCO, TROUGH 17.6 ug/mL High 5.0-15.0 [facility] Comment on above: Order Comment: 301.2 Result Comment: Jp mmended goal trough ranges [...] (Ventilator/Healtcare Associated) -Sepsis PLEASE CONTACT PHARMACY SERVICES (#[id number]) FOR INTERPRETATION OF RESULTS. Performed By: #### L 100.0500, L500.4050, L501.6710, L101.9900 #### [facility] [address] [place], [address] 36on 05-12-[address] Alvarez, Please see labs received today. Patients sed rate is 64. Down from 78 on 04/21/25. C-reactive protein is 32.80. Please let us know if there is any changes to orders. Thank you. Normal [facility] Vancomycin, Trough Levelon 0 05-11-2025 VANCO, TROUGH 16.8 ug/mL High 5.0-15.0 [facility] Comment on above: Order Comment: SRIKANTH TER SPECIMEN Result Comment: Jp mmended goal trough ranges [...] (Ventilator/Healtcare Associated) -Sepsis PLEASE CONTACT PHARMACY SERVICES (#[id number]) FOR INTERPRETATION OF RESULTS. Performed By: #### L 400.0001, M100.2200 #### [facility] [address] [place], [address] 36on 05-10-2025 36 Received a call from Clement stoner at [facility]. She stated that she wanted to clarify how often labs are needed on patient. She stated that all labs except vanc trough were drawn yesterday. She will fax those results. The vanc trough will be drawn tomorrow and will will be faxed to office. Normal [facility] CBC-Complete Blood Cnt No Di ffon 05-09-2025 Erythrocyte distribution width (RBC) [Ratio] 15.9 % High 11.6-14.6 [facility] Comment on above: Order Comment: 301.2 Performed By: #### L 100.0500, L500.4050, L501.6710, L101.9900 #### [facility] [address] [place], [address] Hematocrit (Bld) [Volume fraction] 36.0 % Low 40-54 [facility] Comment on above: Order Comment: 301.2 Performed By: #### L 100.0500, L500.4050, L501.6710, L101.9900 #### [facility] [address] [place], [address] Hemoglobin (Bld) [Mass/Vol] 11.5 g/dL Low 13.0-16.5 [facility] Comment on above: Order Comment: 301.2 Performed By: #### L 100.0500, L500.4050, L501.6710, L101.9900 #### [facility] [address] [place], [address] MCH (RBC) [Entitic mass] 29.1 pg Normal 27.0-32.0 [facility] Comment on above: Order Comment: 301.2 Performed By: #### L 100.0500, L500.4050, L501.6710, L101.9900 #### [facility] [address] [place], [address] MCHC (RBC) [Mass/Vol] 31.9 g/dL Low 32-36 [facility] Comment on above: Order Comment: 301.2 Performed By: #### L 100.0500, L500.4050, L501.6710, L101.9900 #### [facility] [address] [place], [address] MCV (RBC) [Entitic vol] 91.1 fL Normal 80-94 [facility] Comment on above: Order Comment: 301.2 Performed By: #### L 100.0500, L500.4050, L501.6710, L101.9900 #### [facility] [address] [place], [address] Platelet mean volume (Bld) [Entitic vol] 10.3 fL Normal 6.2-12.0 [facility] Comment on above: Order Comment: 301.2 Performed By: #### L 100.0500, L500.4050, L501.6710, L101.9900 #### [facility] [address] [place], [address] Platelets (Bld) [#/Vol] 285 10*3/uL Normal 150-450 [facility] Comment on above: Order Comment: 301.2 Performed By: #### L 100.0500, L500.4050, L501.6710, L101.9900 #### [facility] [address] [place], [address] RBC (Bld) [#/Vol] 3.95 10*6/uL Low 4.6-6.2 [facility] Comment on above: Order Comment: 301.2 Performed By: #### L 100.0500, L500.4050, L501.6710, L101.9900 #### [facility] [address] [place], [address] RDW SD 53.3 fl High 35.1-43.9 [facility] Comment on above: Order Comment: 301.2 Performed By: #### L 100.0500, L500.4050, L501.6710, L101.9900 #### [facility] [address] [place], [address] WBC (Bld) [#/Vol] 5.7 10*3/uL Normal 4.4-11.0 [facility] Comment on above: Order Comment: 301.2 Performed By: #### L 100.0500, L500.4050, L501.6710, L101.9900 #### [facility] [address] [place], [address] CRPon 05-09-2025 C-REACTIVE PROT 32.80 mg/L High 0.0-3.0 [facility] Comment on above: Order Comment: 301.2 Performed By: #### L 100.0500, L500.4050, L501.6710, L101.9900 #### [facility] [address] [place], [address] Comprehensive Metabolic Prof ilon 05-09-2025 Albumin [Mass/Vol] 3.1 g/dL Low 3.4-4.8 [facility] Comment on above: Order Comment: 301.2 Performed By: #### L 100.0500, L500.4050, L501.6710, L101.9900 #### [facility] [address] [place], [address] Albumin/Globulin [Mass ratio] 0.8 {ratio} Low 0.9-2.4 [facility] Comment on above: Order Comment: 301.2 Performed By: #### L 100.0500, L500.4050, L501.6710, L101.9900 #### [facility] [address] [place], [address] ALK PHOS 117 U/L Normal 40-129 [facility] Comment on above: Order Comment: 301.2 Performed By: #### L 100.0500, L500.4050, L501.6710, L101.9900 #### [facility] [address] [place], [address] ALT [Catalytic activity/Vol] 9 U/L Normal <=46 [facility] Comment on above: Order Comment: 301.2 Performed By: #### L 100.0500, L500.4050, L501.6710, L101.9900 #### [facility] [address] [place], [address] AST [Catalytic activity/Vol] 15 U/L Normal <=37 [facility] Comment on above: Order Comment: 301.2 Performed By: #### L 100.0500, L500.4050, L501.6710, L101.9900 #### [facility] [address] [place], [address] Bilirubin [Mass/Vol] 0.28 mg/dL Normal 0.00-1.30 [facility] Comment on above: Order Comment: 301.2 Performed By: #### L 100.0500, L500.4050, L501.6710, L101.9900 #### [facility] [address] [place], [address] BUN/CRE 12.7 RATIO Normal 10-20 [facility] Comment on above: Order Comment: 301.2 Performed By: #### L 100.0500, L500.4050, L501.6710, L101.9900 #### [facility] [address] [place], [address] Calcium [Mass/Vol] 8.8 mg/dL Normal 7.6-11.0 [facility] Comment on above: Order Comment: 301.2 Performed By: #### L 100.0500, L500.4050, L501.6710, L101.9900 #### [facility] [address] [place], [address] Chloride [Moles/Vol] 106 mmol/L Normal 98-108 [facility] Comment on above: Order Comment: 301.2 Performed By: #### L 100.0500, L500.4050, L501.6710, L101.9900 #### [facility] [address] [place], [address] CO2 [Moles/Vol] 19.7 mmol/L Low 21.0-32.0 [facility] Comment on above: Order Comment: 301.2 Performed By: #### L 100.0500, L500.4050, L501.6710, L101.9900 #### [facility] [address] [place], [address] Creatinine [Mass/Vol] 0.49 mg/dL Low 0.70-1.20 [facility] Comment on above: Order Comment: 301.2 Performed By: #### L 100.0500, L500.4050, L501.6710, L101.9900 #### [facility] [address] [place], [address] GAP 12 Normal 5-15 [facility] Comment on above: Order Comment: 301.2 Performed By: #### L 100.0500, L500.4050, L501.6710, L101.9900 #### [facility] [address] [place], [address] GFR/1.73 sq M.predicted among non-blacks MDRD (S/P/Bld) [Vol rate/Area] 116 mL/min/{1.73_m2} Normal >60 [facility] Comment on above: Order Comment: 301.2 Result Comment: mL/m in/1.73m2 CKD-EPI Creatinine Equation (2020) Performed By: #### L 100.0500, L500.4050, L501.6710, L101.9900 #### [facility] [address] [place], [address] Globulin (S) [Mass/Vol] 4.0 g/dL Normal 2.2-4.2 [facility] Comment on above: Order Comment: 301.2 Performed By: #### L 100.0500, L500.4050, L501.6710, L101.9900 #### [facility] [address] [place], [address] Glucose [Mass/Vol] 145 mg/dL High 70-99 [facility] Comment on above: Order Comment: 301.2 Performed By: #### L 100.0500, L500.4050, L501.6710, L101.9900 #### [facility] [address] [place], [address] Potassium [Moles/Vol] 3.5 mmol/L Normal 3.3-5.1 [facility] Comment on above: Order Comment: 301.2 Performed By: #### L 100.0500, L500.4050, L501.6710, L101.9900 #### [facility] [address] [place], [address] Sodium [Moles/Vol] 138 mmol/L Normal 133-145 [facility] Comment on above: Order Comment: 301.2 Performed By: #### L 100.0500, L500.4050, L501.6710, L101.9900 #### [facility] [address] [place], [address] T PROT 7.1 g/dL Normal 5.9-8.4 [facility] Comment on above: Order Comment: 301.2 Performed By: #### L 100.0500, L500.4050, L501.6710, L101.9900 #### [facility] [address] [place], [address] Urea nitrogen [Mass/Vol] 6 mg/dL Normal 4-19 [facility] Comment on above: Order Comment: 301.2 Performed By: #### L 100.0500, L500.4050, L501.6710, L101.9900 #### [facility] [address] [place], [address] Erythrocyte Sed Rateon 05-09 SED RATE 64 mm/hr High 0-20 [facility] Comment on above: Order Comment: 301.2 Performed By: #### L 100.0500, L500.4050, L501.6710, L101.9900 #### [facility] [address] [place], [address] CBC-Complete Blood Cnt No Di ffon 05-08-2025 HCT Normal 40-54 [facility] Comment on above: Order Comment: 301.2 Result Comment: UTO X1 Performed By: #### L 100.0500, L500.4050, L501.6710, L101.9900 #### [facility] [address] [place], [address] HGB Normal 13.0-16.5 [facility] Comment on above: Order Comment: 301.2 Result Comment: UTO X1 Performed By: #### L 100.0500, L500.4050, L501.6710, L101.9900 #### [facility] [address] [place], [address] MCH Normal 27.0-32.0 [facility] Comment on above: Order Comment: 301.2 Result Comment: UTO X1 Performed By: #### L 100.0500, L500.4050, L501.6710, L101.9900 #### [facility] [address] [place], [address] MCHC Normal 32-36 [facility] Comment on above: Order Comment: 301.2 Result Comment: UTO X1 Performed By: #### L 100.0500, L500.4050, L501.6710, L101.9900 #### [facility] [address] [place], [address] MCV Normal 80-94 [facility] Comment on above: Order Comment: 301.2 Result Comment: UTO X1 Performed By: #### L 100.0500, L500.4050, L501.6710, L101.9900 #### [facility] [address] [place], [address] PLT Normal 150-450 [facility] Comment on above: Order Comment: 301.2 Result Comment: UTO X1 Performed By: #### L 100.0500, L500.4050, L501.6710, L101.9900 #### [facility] [address] [place], [address] RBC Normal 4.6-6.2 [facility] Comment on above: Order Comment: 301.2 Result Comment: UTO X1 Performed By: #### L 100.0500, L500.4050, L501.6710, L101.9900 #### [facility] [address] [place], [address] RDW CV Normal 11.6-14.6 [facility] Comment on above: Order Comment: 301.2 Result Comment: UTO X1 Performed By: #### L 100.0500, L500.4050, L501.6710, L101.9900 #### [facility] [address] [place], [address] RDW SD Normal 35.1-43.9 [facility] Comment on above: Order Comment: 301.2 Result Comment: UTO X1 Performed By: #### L 100.0500, L500.4050, L501.6710, L101.9900 #### [facility] [address] [place], [address] WBC Normal 4.4-11.0 [facility] Comment on above: Order Comment: 301.2 Result Comment: UTO X1 Performed By: #### L 100.0500, L500.4050, L501.6710, L101.9900 #### [facility] [address] [place], [address] Comprehensive Metabolic Prof ilon 05-08-2025 ALB Normal 3.4-4.8 [facility] Comment on above: Order Comment: 301.2 Result Comment: UTO X1 Performed By: #### L 100.0500, L500.4050, L501.6710, L101.9900 #### [facility] [address] [place], [address] ALK PHOS Normal 40-129 [facility] Comment on above: Order Comment: 301.2 Result Comment: UTO X1 Performed By: #### L 100.0500, L500.4050, L501.6710, L101.9900 #### [facility] [address] [place], [address] ALT Normal <=46 [facility] Comment on above: Order Comment: 301.2 Result Comment: UTO X1 Performed By: #### L 100.0500, L500.4050, L501.6710, L101.9900 #### [facility] [address] [place], [address] AST Normal <=37 [facility] Comment on above: Order Comment: 301.2 Result Comment: UTO X1 Performed By: #### L 100.0500, L500.4050, L501.6710, L101.9900 #### [facility] [address] [place], [address] BUN Normal 4-19 [facility] Comment on above: Order Comment: 301.2 Result Comment: UTO X1 Performed By: #### L 100.0500, L500.4050, L501.6710, L101.9900 #### [facility] [address] [place], [address] BUN/CRE Normal 10-20 [facility] Comment on above: Order Comment: 301.2 Result Comment: UTO X1 Performed By: #### L 100.0500, L500.4050, L501.6710, L101.9900 #### [facility] [address] [place], [address] Calcium Normal 7.6-11.0 [facility] Comment on above: Order Comment: 301.2 Result Comment: UTO X1 Performed By: #### L 100.0500, L500.4050, L501.6710, L101.9900 #### [facility] [address] [place], [address] CL Normal 98-108 [facility] Comment on above: Order Comment: 301.2 Result Comment: UTO X1 Performed By: #### L 100.0500, L500.4050, L501.6710, L101.9900 #### [facility] [address] [place], [address] CO2 Normal 21.0-32.0 [facility] Comment on above: Order Comment: 301.2 Result Comment: UTO X1 Performed By: #### L 100.0500, L500.4050, L501.6710, L101.9900 #### [facility] [address] [place], [address] CREAT,SERUM Normal 0.70-1.20 [facility] Comment on above: Order Comment: 301.2 Result Comment: UTO X1 Performed By: #### L 100.0500, L500.4050, L501.6710, L101.9900 #### [facility] [address] [place], [address] eGFR Normal >60 [facility] Comment on above: Order Comment: 301.2 Result Comment: UTO X1 Performed By: #### L 100.0500, L500.4050, L501.6710, L101.9900 #### [facility] [address] [place], [address] GAP Normal 5-15 [facility] Comment on above: Order Comment: 301.2 Result Comment: UTO X1 Performed By: #### L 100.0500, L500.4050, L501.6710, L101.9900 #### [facility] [address] [place], [address] GLU Normal 70-99 [facility] Comment on above: Order Comment: 301.2 Result Comment: UTO X1 Performed By: #### L 100.0500, L500.4050, L501.6710, L101.9900 #### [facility] [address] [place], [address] Potassium Normal 3.3-5.1 [facility] Comment on above: Order Comment: 301.2 Result Comment: UTO X1 Performed By: #### L 100.0500, L500.4050, L501.6710, L101.9900 #### [facility] [address] [place], [address] T BILI Normal 0.00-1.30 [facility] Comment on above: Order Comment: 301.2 Result Comment: UTO X1 Performed By: #### L 100.0500, L500.4050, L501.6710, L101.9900 #### [facility] [address] [place], [address] T PROT Normal 5.9-8.4 [facility] Comment on above: Order Comment: 301.2 Result Comment: UTO X1 Performed By: #### L 100.0500, L500.4050, L501.6710, L101.9900 #### [facility] [address] [place], [address] Comprehensive Metabolic Profil Normal 133-145 [facility] Comment on above: Order Comment: 301.2 Result Comment: UTO X1 Performed By: #### L 100.0500, L500.4050, L501.6710, L101.9900 #### [facility] [address] [place], [address] Erythrocyte Sed Rateon 05-08 SED RATE Normal 0-20 [facility] Comment on above: Order Comment: 301.2 Result Comment: UTO X1 Performed By: #### L 100.0500, L500.4050, L501.6710, L101.9900 #### [facility] [address] [place], [address] 36on 05-03-2025 36 Message received fro m Dr. Alvarez to keep the same dose for now. Called Nikki back at [place] and released message via voicemail. Encouraged her to call office back if have any more questions or concerns. [facility] 36 Received call from Nikki, nurse at [facility]. They repeated the vanc trough again today due to it being elevated on the . The level today is 22. Facility calling to see if physician wanted to continue the 1gm every 12 hours or want to make another adjustment before his dose at 9am today. Sent secure chat to Dr. Alvarez. Awaiting message back. Normal [facility] Vancomycin, Trough Levelon 0 05-03-2025 VANCO, TROUGH 22.0 ug/mL High 5.0-15.0 [facility] Comment on above: Order Comment: 301.2 Result Comment: Jp mmended goal trough ranges [...] (Ventilator/Healtcare Associated) -Sepsis PLEASE CONTACT PHARMACY SERVICES (#[id number]) FOR INTERPRETATION OF RESULTS. Performed By: #### L 100.0500, L500.4050, L501.6710, L101.9900 #### [facility] [address] [place], [address] 36on 05-01-2025 36 Received lab report for [...] Ambrosio. Verbalized understanding of new order. Normal [facility] 36 Pt dc to [place] jessy tracey Adelia [phone]. Called facility and spoke to nurse Vaughan to verify IV meds, dose, frequency, EOT, weekly labs, and follow up appt with Dr. Alvarez on 06/02 at 11am. She was able to read back orders. Also faxed appt reminder to facility and received confirmation fax (scanned under media). Normal [facility] CBC-Complete Blood Cnt No Di ffon 05-01-2025 Erythrocyte distribution width (RBC) [Ratio] 15.9 % High 11.6-14.6 [facility] Comment on above: Performed By: #### L 100.0500, L500.4050, L501.6710, L101.9900 #### [facility] [address] [place], [address] Hematocrit (Bld) [Volume fraction] 33.5 % Low 40-54 [facility] Comment on above: Performed By: #### L 100.0500, L500.4050, L501.6710, L101.9900 #### [facility] [address] [place], [address] Hemoglobin (Bld) [Mass/Vol] 10.9 g/dL Low 13.0-16.5 [facility] Comment on above: Performed By: #### L 100.0500, L500.4050, L501.6710, L101.9900 #### [facility] [address] [place], [address] MCH (RBC) [Entitic mass] 29.4 pg Normal 27.0-32.0 [facility] Comment on above: Performed By: #### L 100.0500, L500.4050, L501.6710, L101.9900 #### [facility] [address] [place], [address] MCHC (RBC) [Mass/Vol] 32.5 g/dL Normal 32-36 [facility] Comment on above: Performed By: #### L 100.0500, L500.4050, L501.6710, L101.9900 #### [facility] [address] [place], [address] MCV (RBC) [Entitic vol] 90.3 fL Normal 80-94 [facility] Comment on above: Performed By: #### L 100.0500, L500.4050, L501.6710, L101.9900 #### [facility] [address] [place], [address] Platelet mean volume (Bld) [Entitic vol] 9.7 fL Normal 6.2-12.0 [facility] Comment on above: Performed By: #### L 100.0500, L500.4050, L501.6710, L101.9900 #### [facility] [address] [place], [address] Platelets (Bld) [#/Vol] 340 10*3/uL Normal 150-450 [facility] Comment on above: Performed By: #### L 100.0500, L500.4050, L501.6710, L101.9900 #### [facility] [address] [place], [address] RBC (Bld) [#/Vol] 3.71 10*6/uL Low 4.6-6.2 [facility] Comment on above: Performed By: #### L 100.0500, L500.4050, L501.6710, L101.9900 #### [facility] [address] [place], [address] RDW SD 51.4 fl High 35.1-43.9 [facility] Comment on above: Performed By: #### L 100.0500, L500.4050, L501.6710, L101.9900 #### [facility] [address] [place], [address] WBC (Bld) [#/Vol] 7.4 10*3/uL Normal 4.4-11.0 [facility] Comment on above: Performed By: #### L 100.0500, L500.4050, L501.6710, L101.9900 #### [facility] [address] [place], [address] Comprehensive Metabolic Prof suzanon 05-01-2025 Albumin [Mass/Vol] 3.0 g/dL Low 3.4-4.8 [facility] Comment on above: Performed By: #### L 100.0500, L500.4050, L501.6710, L101.9900 #### [facility] [address] [place], [address] Albumin/Globulin [Mass ratio] 0.8 {ratio} Low 0.9-2.4 [facility] Comment on above: Performed By: #### L 100.0500, L500.4050, L501.6710, L101.9900 #### [facility] [address] [place], [address] ALK PHOS 115 U/L Normal 40-129 [facility] Comment on above: Performed By: #### L 100.0500, L500.4050, L501.6710, L101.9900 #### [facility] [address] [place], [address] ALT [Catalytic activity/Vol] 7 U/L Normal <=46 [facility] Comment on above: Performed By: #### L 100.0500, L500.4050, L501.6710, L101.9900 #### [facility] [address] [place], [address] AST [Catalytic activity/Vol] 16 U/L Normal <=37 [facility] Comment on above: Performed By: #### L 100.0500, L500.4050, L501.6710, L101.9900 #### [facility] [address] [place], [address] Bilirubin [Mass/Vol] 0.26 mg/dL Normal 0.00-1.30 [facility] Comment on above: Performed By: #### L 100.0500, L500.4050, L501.6710, L101.9900 #### [facility] [address] [place], [address] BUN/CRE 19.4 RATIO Normal 10-20 [facility] Comment on above: Performed By: #### L 100.0500, L500.4050, L501.6710, L101.9900 #### [facility] [address] [place], [address] Calcium [Mass/Vol] 8.5 mg/dL Normal 7.6-11.0 [facility] Comment on above: Performed By: #### L 100.0500, L500.4050, L501.6710, L101.9900 #### [facility] [address] [place], [address] Chloride [Moles/Vol] 106 mmol/L Normal 98-108 [facility] Comment on above: Performed By: #### L 100.0500, L500.4050, L501.6710, L101.9900 #### [facility] [address] [place], [address] CO2 [Moles/Vol] 20.2 mmol/L Low 21.0-32.0 [facility] Comment on above: Performed By: #### L 100.0500, L500.4050, L501.6710, L101.9900 #### [facility] [address] [place], [address] Creatinine [Mass/Vol] 0.51 mg/dL Low 0.70-1.20 [facility] Comment on above: Performed By: #### L 100.0500, L500.4050, L501.6710, L101.9900 #### [facility] [address] [place], [address] GAP 12 Normal 5-15 [facility] Comment on above: Performed By: #### L 100.0500, L500.4050, L501.6710, L101.9900 #### [facility] [address] [place], [address] GFR/1.73 sq M.predicted among non-blacks MDRD (S/P/Bld) [Vol rate/Area] 114 mL/min/{1.73_m2} Normal >60 [facility] Comment on above: Result Comment: mL/m in/1.73m2 CKD-EPI Creatinine Equation (2020) Performed By: #### L 100.0500, L500.4050, L501.6710, L101.9900 #### [facility] [address] [place], [address] Globulin (S) [Mass/Vol] 3.8 g/dL Normal 2.2-4.2 [facility] Comment on above: Performed By: #### L 100.0500, L500.4050, L501.6710, L101.9900 #### [facility] [address] [place], [address] Glucose [Mass/Vol] 126 mg/dL High 70-99 [facility] Comment on above: Performed By: #### L 100.0500, L500.4050, L501.6710, L101.9900 #### [facility] [address] [place], [address] Potassium [Moles/Vol] 3.7 mmol/L Normal 3.3-5.1 [facility] Comment on above: Performed By: #### L 100.0500, L500.4050, L501.6710, L101.9900 #### [facility] [address] [place], [address] Sodium [Moles/Vol] 138 mmol/L Normal 133-145 [facility] Comment on above: Performed By: #### L 100.0500, L500.4050, L501.6710, L101.9900 #### [facility] [address] [place], [address] T PROT 6.8 g/dL Normal 5.9-8.4 [facility] Comment on above: Performed By: #### L 100.0500, L500.4050, L501.6710, L101.9900 #### [facility] [address] [place], [address] Urea nitrogen [Mass/Vol] 10 mg/dL Normal 4-19 [facility] Comment on above: Performed By: #### L 100.0500, L500.4050, L501.6710, L101.9900 #### [facility] [address] [place], [address] Vancomycin, Trough Levelon 0 05-01-2025 VANCO, TROUGH 26.1 ug/mL High 5.0-15.0 [facility] Comment on above: Order Comment: 301.2 Result Comment: Jp mmended goal trough ranges [...] (Ventilator/Healtcare Associated) -Sepsis PLEASE CONTACT PHARMACY SERVICES (#[id number]) FOR INTERPRETATION OF RESULTS. Performed By: #### L 100.0500, L500.4050, L501.6710, L101.9900 #### [facility] [address] [place], [address] 30on 04-28-2025 30 Proteus is sensitive to unasyn. OPAT for unasyn and vancomycin completed and scanned into media with stop date of 06/06. Follow up with Dr. Alvarez. D/w TCC. Plans for discharge to SNF. Jo-Ann Ortiz MD [facility] [id number] 04-28-2025 [id number] Next Site of Care Admission Date: 04/21/2025 09:56 PM Patient Name: ANMOL REYNOLDS Location: [address] Date of : 1960 ------- Placement Information ------- Referral Type:Shelter/SNF - Return Referral ID:[id number] Provider Name:Tierra Delvalle [facility] Address 1:[address] [facility] Address 2: City:[place] Selection Factors:Patient/Famil y Choice State:[facility] [phone] Shelter/SNF - Return [place] [facility] [address] [facility] [phone] [id number] Patient/Family Choice Normal [facility] [phone] Confirmed pickup mingo e of 5:30pm on 04/28/25 by transport company Carlos Obrien at phone number [phone]. Location of facility drop off is [facility]. Facility notified via Careport, TCC notified on secure chat. [facility] [phone] Transport requested in Roundtrip in will call to [facility] per [facility]. [facility] Bacteria identified Aer cx N om (Unsp spec)on 04-28-2025 Gram Stain Result Many Polymorphonuclear leukocytes per low power field Abnormal [facility] Gram Stain Result Positive Abnormal [facility] ealt Interpretation and review of laboratory results Abnormal [facility] - Chemistry and C hemistry - challengeon 04-28-2025 Glucose [Mass/Vol] 212 mg/dL High 70 - 100 mg/dL [facility] Glucose [Mass/Vol] 183 mg/dL High 70 - 100 mg/dL [facility] Glucose [Mass/Vol] 152 mg/dL High 70 - 100 mg/dL [facility] Laboratory - Microbiology an d Antimicrobial susceptibilityon 04-28-2025 Bacteria identified Aer cx Nom (Unsp spec) Rare skin gosia present [facility] Bacteria identified Aer cx Nom (Unsp spec) Moderate Enterococcus raffinosus Abnormal [facility] Bacteria identified Aer cx Nom (Unsp spec) Rare Proteus mirabilis Abnormal [facility] No Panel Informationon 04-28 Interpretation and review of laboratory results Abnormal [facility] Performed by: [address] [address] CLIA ID: [id number] [facility] Interpretation and review of laboratory results Abnormal [facility] Performed by: [address] [address] CLIA ID: [id number] [facility] Interpretation and review of laboratory results Abnormal [facility] Performed by: [place] [address] CLIA ID: [id number] [facility] Nursing Noteon 04-28-2025 Nursing Note [facility]. PICC line clean dry and intact. Jenniffer got pt ready and gathered all belongings. Waiting on transport to arrive. Normal [facility] 30on 04-27-2025 [address] Alvarez- s/p L ischial wound debridement with osteomyelitis. Additional organisms are being reported on OR cx. E raffinosus, Proteus, MRSA, Clostridium ramosum, enteric gosia, and skin gosia. Await Proteus sensitivities prior to completion of OPAT. Will provide final recommendations tomorrow. D/w TCC. Jo-Ann Ortiz MD [facility] BASIC METABOLIC PANELon 04-05 Anion gap [Moles/Vol] 3 mmol/L Normal 3-13 [facility] Comment on above: Performed By: #### L [id number] ####Fan Installer: BIANCA NICHOLS ([phone])[facility])[address] [place] [address] Calcium [Mass/Vol] 8.6 mg/dL Low 8.8-10.0 [facility] Comment on above: Performed By: #### L [id number] ####Fan Installer: BIANCA NICHOLS ([id number])[facility])[address] [place] [address] [place] Chloride [Moles/Vol] 104 mmol/L Normal 98-107 [facility] Comment on above: Performed By: #### L [id number] ####Fan Installer: BIANCA NICHOLS ([id number])[facility])[address] [place] [address] [place] CO2 [Moles/Vol] 29 mmol/L Normal 23-31 [facility] Comment on above: Performed By: #### L [id number] ####Fan Installer: BIANCA NICHOLS ([id number])[facility] ([facility])[address] [place] [address] [place] Creatinine [Mass/Vol] 0.64 mg/dL Low 0.72-1.25 [facility] Comment on above: Performed By: #### L [id number] ####Fan Installer: BIANCA NICHOLS ([id number])[address] GLOMERULAR FILTRATION RATE ML/MIN/1.73 SQ M.PREDICTED >90.0 Normal >60.0 [facility] Comment on above: Result Comment: Calc ulation based on the Chronic Kidney Disease Epidemiology Collaboration (CKD-EPI) equation refit without adjustment for race Performed By: #### L [id number] ####Fan Installer: BIANCA NICHOLS ([id number])[address] Glucose [Mass/Vol] 96 mg/dL Normal 82-115 [facility] Comment on above: Performed By: #### L [id number] ####Fan Installer: BIANCA NICHOLS ([id number])[address] Potassium [Moles/Vol] 4.0 mmol/L Normal 3.5-5.1 [facility] Comment on above: Result Comment: [facility] potassium values may be up to 0.5 mmol/L lower than serum values. Performed By: #### L [id number] ####Fan Installer: BIANCA NICHOLS ([id number])[address] Sodium [Moles/Vol] 136 mmol/L Normal 136-145 [facility] Comment on above: Performed By: #### L [id number] ####Fan Installer: BIANCA NICHOLS ([id number])[address] Urea nitrogen [Mass/Vol] 21 mg/dL Normal 9-23 [facility] Comment on above: Performed By: #### L [id number] ####Fan Installer: BIANCA NICHOLS ([id number])[address] Bacteria identified Aer cx N om (Unsp spec)on 04-27-2025 Gram Stain Result Few Polymorphonuclea r leukocytes per low power field [facility] Gram Stain Result No organisms seen [facility] Interpretation and review of laboratory results Abnormal [facility] Bacteria identified Anaer cx Nom (Unsp spec)Ordered By: Vijaya Mariscal on 04-27-2025 Interpretation and review of laboratory results Abnormal [facility] Bacteria identified Cx Nom ( Bld)on 04-27-2025 Interpretation and review of laboratory results Normal [facility] Blood Collection Site: Right Forearm [facility] Blood Collection Site: Left PICC Purple Lumen [facility] Basic metabolic 1998 panelon 04-27-2025 Anion gap [Moles/Vol] 3 mmol/L 3 - 13 mmol/L [facility] Calcium [Mass/Vol] 8.6 mg/dL Low 8.8 - 10. 0 mg/dL [facility] Chloride [Moles/Vol] 104 mmol/L 98 - 10 7 mmol/L [facility] CO2 [Moles/Vol] 29 mmol/L 23 - 31 mmol/L [facility] Creatinine [Mass/Vol] 0.64 mg/dL Low 0.72 - 1.25 mg/dL [facility] GFR/1.73 sq M.predicted (S/P/Bld) [Vol rate/Area] - PINF [facility] Comment on above: Calculation based on the Chronic Kidney Disease Epidemiology Collaboration (CKD-EPI) equation refit without adjustment for race Glucose [Mass/Vol] 96 mg/dL 82 - 115 mg/dL [facility] Interpretation and review of laboratory results Abnormal [facility] Potassium [Moles/Vol] 4 mmol/L 3.5 - 5.1 mmol/L [facility] Comment on above: Plasma potassium leonie ues may be up to 0.5 mmol/L lower than serum values. Sodium [Moles/Vol] 136 mmol/L 136 - 145 mmol/L [facility] Urea nitrogen [Mass/Vol] 21 mg/dL 9 - 23 mg/dL [facility] CBC W Auto Differential pane l (Bld)on 04-27-2025 Basophils (Bld) [#/Vol] 0.1 10*3/uL 0.0 - 0.2 10*3/uL [facility] Basophils/100 WBC (Bld) 0.8 % 0.0 - 2.0 % [facility] Eosinophils (Bld) [#/Vol] 0.4 10*3/uL 0.0 - 0.5 10*3/uL [facility] Eosinophils/100 WBC (Bld) 5.3 % 0.0 - 6.0 % [facility] Erythrocyte distribution width (RBC) [Ratio] 14.9 % 11.5 - 15.0 % [facility] Hematocrit (Bld) [Volume fraction] 34 % Low 40.0 - 52.0 % [facility] Hemoglobin (Bld) [Mass/Vol] 10.9 g/dL Low 13.0 - 18.0 g/dL [facility] Immature granulocytes (Bld) [#/Vol] 0 10*3/uL NINF - 0.1 10*3/uL [facility] Immature granulocytes/100 WBC (Bld) 0.5 % 0.0 - 2.0 % [facility] Interpretation and review of laboratory results Abnormal [facility] Lymphocytes (Bld) [#/Vol] 2.9 10*3/uL 1.0 - 4.3 10*3/uL [facility] Lymphocytes/100 WBC (Bld) 36.4 % 15.0 - 45.0 % [facility] MCH (RBC) [Entitic mass] 28.8 pg 26. 0 - 34.0 pg [facility] MCHC (RBC) [Mass/Vol] 32.1 % 30.5 - 36.0 % [facility] MCV (RBC) [Entitic vol] 89.9 fL 77.0 - 99.0 fL [facility] Monocytes (Bld) [#/Vol] 0.7 10*3/uL 0.0 - 0.9 10*3/uL [facility] Monocytes/100 WBC (Bld) 8.2 % 5.0 - 13.0 % [facility] Neutrophils (Bld) [#/Vol] 3.9 10*3/uL 1.8 - 7.5 10*3/uL [facility] Neutrophils/100 WBC (Bld) 48.8 % 38.0 - 82.0 % [facility] Nucleated RBC/100 WBC (Bld) [Ratio] 0 % [facility] Platelet mean volume (Bld) [Entitic vol] 9.5 fL 9.0 - 12.7 fL [facility] Platelets (Bld) [#/Vol] 363 10*3/uL 140 - 440 10*3/uL [facility] RBC (Bld) [#/Vol] 3.78 10*6/uL Low 4.40 - 5.9 0 10*6/uL [facility] WBC (Bld) [#/Vol] 8 10*3/uL 3.6 - 10.7 10*3/uL [facility] CBC WITH AUTO DIFFERENTIALon 04-27-2025 Basophils (Bld) [#/Vol] 0.1 10*3/uL Normal 0.0-0.2 [facility] Comment on above: Performed By: #### L [id number] ####Fan Installer: BIANCA NICHOLS ([id number])[facility])[address] [place] [address] Basophils/100 WBC (Bld) 0.8 % Normal 0.0-2.0 [facility] Comment on above: Performed By: #### L [id number] ####Fan Installer: BIANCA NICHOLS ([id number])[facility] ([facility])[address] [place] [address] Eosinophils (Bld) [#/Vol] 0.4 10*3/uL Normal 0.0-0.5 [facility] Comment on above: Performed By: #### L [id number] ####Fan Installer: BIANCA NICHOLS ([id number])[facility])[address] [place] [address] Eosinophils/100 WBC (Bld) 5.3 % Normal 0.0-6.0 [facility] Comment on above: Performed By: #### L [id number] ####Fan Installer: BIANCA NICHOLS ([id number])[facility] ([facility])[address] [place] [address] Erythrocyte distribution width (RBC) [Ratio] 14.9 % Normal 11.5-15.0 [facility] Comment on above: Performed By: #### L [id number] ####Fan Installer: BIANCA NICHOLS ([id number])[facility])[address] [place] [address] Hematocrit (Bld) [Volume fraction] 34.0 % Low 40.0-52.0 [facility] Comment on above: Performed By: #### L [id number] ####Fan Installer: BIANCA NICHOLS ([id number])[facility])[address] [place] [address] Hemoglobin (Bld) [Mass/Vol] 10.9 g/dL Low 13.0-18.0 [facility] Comment on above: Performed By: #### L [id number] ####Fan Installer: BIANCA NICHOLS ([id number])[facility])[address] [place] [address] IMMATURE GRANS % 0.5 % Normal 0.0-2.0 [facility] Comment on above: Performed By: #### L [id number] ####Fan Installer: BIANCA NICHOLS ([id number])[facility])[address] [place] [address] IMMATURE GRANS ABSOLUTE 0.0 10*3/uL Normal <0.1 [facility] Comment on above: Performed By: #### L [id number] ####Fan Installer: BIANCA NICHOLS ([id number])[facility])[address] [place] [address] Lymphocytes (Bld) [#/Vol] 2.9 10*3/uL Normal 1.0-4.3 [facility] Comment on above: Performed By: #### L [id number] ####Fan Installer: BIANCA NICHOLS ([id number])[facility])[address] [place] [address] Lymphocytes/100 WBC (Bld) 36.4 % Normal 15.0-45.0 [facility] Comment on above: Performed By: #### L [id number] ####Fan Installer: BIANCA NICHOLS ([id number])[facility])[address] [place] [address] MCH (RBC) [Entitic mass] 28.8 pg Normal 26.0-34.0 [facility] Comment on above: Performed By: #### L [id number] ####Fan Installer: BIANCA NICHOLS ([id number])[facility] ([facility])[address] [place] [address] MCHC 32.1 % Normal 30.5-36.0 [facility] Comment on above: Performed By: #### L [id number] ####Fan Installer: BIANCA NICHOLS ([id number])[facility])[address] [place] [address] MCV (RBC) [Entitic vol] 89.9 fL Normal 77.0-99.0 [facility] Comment on above: Performed By: #### L [id number] ####Fan Installer: BIANCA NICHOLS ([id number])[facility])[address] [place] [address] Monocytes (Bld) [#/Vol] 0.7 10*3/uL Normal 0.0-0.9 [facility] Comment on above: Performed By: #### L [id number] ####Fan Installer: BIANCA NICHOLS ([id number])[facility] ([facility])[address] [place] [address] Monocytes/100 WBC (Bld) 8.2 % Normal 5.0-13.0 [facility] Comment on above: Performed By: #### L [id number] ####Fan Installer: BIANCA NICHOLS ([id number])[facility])[address] [place] [address] NEUTROPHILS ABSOLUTE 3.9 10*3/uL Normal 1.8-7.5 [facility] Comment on above: Performed By: #### L [id number] ####Fan Installer: BIANCA NICHOLS ([id number])[facility])[address] [place] [address] Neutrophils/100 WBC (Bld) 48.8 % Normal 38.0-82.0 [facility] Comment on above: Performed By: #### L [id number] ####Fan Installer: BIANCA NICHOLS ([id number])[facility] ([facility])[address] [place] [address] NRBC 0.0 /100 WBCs Normal 0.0-2.0 [facility] Comment on above: Performed By: #### L [id number] ####Fan Installer: BIANCA NICHOLS ([id number])[facility] ([facility])[address] [place] [address] Platelet mean volume (Bld) [Entitic vol] 9.5 fL Normal 9.0-12.7 [facility] Comment on above: Performed By: #### L [id number] ####Fan Installer: BIANCA NICHOLS ([id number])[facility] ([facility])[address] [place] [address] Platelets (Bld) [#/Vol] 363 10*3/uL Normal 140-440 [facility] Comment on above: Performed By: #### L [id number] ####Fan Installer: BIANCA NICHOLS ([id number])[facility] ([facility])[address] [place] [address] RBC (Bld) [#/Vol] 3.78 10*6/uL Low 4.40-5.90 [facility] Comment on above: Performed By: #### L [id number] ####Fan Installer: BIANCA NICHOLS ([id number])[facility] ([facility])[address] [place] [address] WBC (Bld) [#/Vol] 8.0 10*3/uL Normal 3.6-10.7 [facility] Comment on above: Performed By: #### L [id number] ####Fan Installer: BIANCA NICHOLS ([id number])[facility] ([facility])[address] [place] [address] Laboratory - Chemistry and C hemistry - challengeon 04-27-2025 Glucose [Mass/Vol] 146 mg/dL High 70 - 100 mg/dL [facility] Glucose [Mass/Vol] 228 mg/dL High 70 - 100 mg/dL [facility] Glucose [Mass/Vol] 265 mg/dL High 70 - 100 mg/dL [facility] Glucose [Mass/Vol] 137 mg/dL High 70 - 100 mg/dL [facility] Laboratory - Microbiology an d Antimicrobial susceptibilityOrdered By: Vijaya Mariscal on 04-27-2025 Bacteria identified Anaer cx Nom (Unsp spec) Moderate Anaerobic Gram-negative bacilli, not B. fragilis Abnormal [facility] Laboratory - Microbiology an d Antimicrobial susceptibilityon 04-27-2025 Bacteria identified Aer cx Nom (Unsp spec) Rare Enterococcus raffinosus Abnormal [facility] Bacteria identified Cx Nom (Bld) No growth at 5 days [facility] No Panel Informationon 04-27 Interpretation and review of laboratory results Abnormal [facility] Performed by: [address] [address] CLIA ID: [id number] [facility] Interpretation and review of laboratory results Abnormal [facility] Performed by: [address] [address] CLIA ID: [id number] [facility] Interpretation and review of laboratory results Abnormal [facility] Performed by: [address] [address] CLIA ID: [id number] [facility] Interpretation and review of laboratory results Abnormal [facility] Performed by: [address] [address] CLIA ID: [id number] [facility] Nursing Noteon 04-27-2025 Nursing Note Patient dressings changed as per orders. Patient tolerated well. Left PICC dressing changed patient tolerated well Normal [facility] BASIC METABOLIC PANELon 04-05 Anion gap [Moles/Vol] 6 mmol/L Normal - [facility] Comment on above: Performed By: #### L [id number] ####Fan Installer: BIANCA NICHOLS ([id number])[facility])[address] [place] [address] Calcium [Mass/Vol] 8.5 mg/dL Low 8.8-10.0 [facility] Comment on above: Performed By: #### L [id number] ####Fan Installer: BIANCA NICHOLS ([id number])[facility])[address] [place] [address] Chloride [Moles/Vol] 103 mmol/L Normal 98-107 [facility] Comment on above: Performed By: #### L [id number] ####Fan Installer: BIANCA NICHOLS ([id number])[facility])[address] [place] [address] CO2 [Moles/Vol] 27 mmol/L Normal 23-31 [facility] Comment on above: Performed By: #### L [id number] ####Fan Installer: BIANCA NICHOLS ([id number])[facility])[address] [place] [address] Creatinine [Mass/Vol] 0.62 mg/dL Low 0.72-1.25 [facility] Comment on above: Performed By: #### L [id number] ####Fan Installer: BIANCA NICHOLS ([id number])[facility])[address] [place] [address] GLOMERULAR FILTRATION RATE ML/MIN/1.73 SQ M.PREDICTED >90.0 Normal >60.0 [facility] Comment on above: Result Comment: Calc ulation based on the Chronic Kidney Disease Epidemiology Collaboration (CKD-EPI) equation refit without adjustment for race Performed By: #### L [id number] ####Fan Installer: BIANCA NICHOLS ([id number])[facility])[address] [place] [address] Glucose [Mass/Vol] 155 mg/dL High 82-115 [facility] Comment on above: Performed By: #### L [id number] ####Fan Installer: BIANCA NICHOLS ([id number])[facility])[address] [place] [address] Potassium [Moles/Vol] 4.0 mmol/L Normal 3.5-5.1 [facility] Comment on above: Result Comment: [facility] potassium values may be up to 0.5 mmol/L lower than serum values. Performed By: #### L [id number] ####Fan Installer: BIANCA NICHOLS ([id number])[facility])[address] [place] [address] Sodium [Moles/Vol] 136 mmol/L Normal 136-145 [facility] Comment on above: Performed By: #### L [id number] ####Fan Installer: BIANCA NICHOLS ([id number])[facility] ([facility])[address] [place] [address] Urea nitrogen [Mass/Vol] 19 mg/dL Normal 9-23 [facility] Comment on above: Performed By: #### L [id number] ####Fan Installer: BIANCA NICHOLS ([id number])[facility] ([facility])[address] [place] [address] Basic metabolic 1998 panelon 04-26-2025 Anion gap [Moles/Vol] 6 mmol/L 3 - 13 mmol/L [facility] Calcium [Mass/Vol] 8.5 mg/dL Low 8.8 - 10. 0 mg/dL [facility] Chloride [Moles/Vol] 103 mmol/L 98 - 10 7 mmol/L [facility] CO2 [Moles/Vol] 27 mmol/L 23 - 31 mmol/L [facility] Creatinine [Mass/Vol] 0.62 mg/dL Low 0.72 - 1.25 mg/dL [facility] GFR/1.73 sq M.predicted (S/P/Bld) [Vol rate/Area] - PINF [facility] Comment on above: Calculation based on the Chronic Kidney Disease Epidemiology Collaboration (CKD-EPI) equation refit without adjustment for race Glucose [Mass/Vol] 155 mg/dL High 82 - 115 mg/dL [facility] Interpretation and review of laboratory results Abnormal [facility] Potassium [Moles/Vol] 4 mmol/L 3.5 - 5.1 mmol/L [facility] Comment on above: Plasma potassium leonie ues may be up to 0.5 mmol/L lower than serum values. Sodium [Moles/Vol] 136 mmol/L 136 - 145 mmol/L [facility] Urea nitrogen [Mass/Vol] 19 mg/dL 9 - 23 mg/dL [facility] CBC (HEMOGRAM)on 04-26-2025 Erythrocyte distribution width (RBC) [Ratio] 14.8 % Normal 11.5-15.0 [facility] Comment on above: Performed By: #### L [id number] ####Fan Installer: BIANCA NICHOLS ([id number])[facility] ([facility])[address] [place] [address] Hematocrit (Bld) [Volume fraction] 33.8 % Low 40.0-52.0 [facility] Comment on above: Performed By: #### L [id number] ####Fan Installer: BIANCA NICHOLS ([id number])[facility] ([facility])[address] [place] [address] Hemoglobin (Bld) [Mass/Vol] 11.0 g/dL Low 13.0-18.0 [facility] Comment on above: Performed By: #### L [id number] ####Fan Installer: BIANCA NICHOLS ([id number])[facility])[address] [place] [address] MCH (RBC) [Entitic mass] 29.3 pg Normal 26.0-34.0 [facility] Comment on above: Performed By: #### L [id number] ####Fan Installer: BIANCA NICHOLS ([id number])[facility] ([facility])[address] [place] [address] MCHC 32.5 % Normal 30.5-36.0 [facility] Comment on above: Performed By: #### L [id number] ####Fan Installer: BIANCA NICHOLS ([id number])[facility] ([facility])[address] [place] [address] MCV (RBC) [Entitic vol] 89.9 fL Normal 77.0-99.0 [facility] Comment on above: Performed By: #### L [id number] ####Fan Installer: BIANCA NICHOLS ([id number])[facility] ([facility])[address] [place] [address] Platelet mean volume (Bld) [Entitic vol] 9.5 fL Normal 9.0-12.7 [facility] Comment on above: Performed By: #### L [id number] ####Fan Installer: BIANCA NICHOLS ([id number])[facility] ([facility])[address] [place] [address] Platelets (Bld) [#/Vol] 386 10*3/uL Normal 140-440 [facility] Comment on above: Performed By: #### L [id number] ####Fan Installer: BIANCA NICHOLS ([id number])[facility])[address] [place] [address] RBC (Bld) [#/Vol] 3.76 10*6/uL Low 4.40-5.90 [facility] Comment on above: Performed By: #### L [id number] ####Fan Installer: BIANCA NICHOLS ([id number])[facility])[address] [place] [address] WBC (Bld) [#/Vol] 7.3 10*3/uL Normal 3.6-10.7 [facility] Comment on above: Performed By: #### L [id number] ####Fan Installer: BIANCA NICHOLS ([id number])[facility])[address] [place] [address] CBC panel Auto (Bld)on 04-26 Erythrocyte distribution width (RBC) [Ratio] 14.8 % 11.5 - 15.0 % [facility] Hematocrit (Bld) [Volume fraction] 33.8 % Low 40.0 - 52.0 % [facility] Hemoglobin (Bld) [Mass/Vol] 11 g/dL Low 13.0 - 18.0 g/dL [facility] Interpretation and review of laboratory results Abnormal [facility] MCH (RBC) [Entitic mass] 29.3 pg 26. 0 - 34.0 pg [facility] MCHC (RBC) [Mass/Vol] 32.5 % 30.5 - 36.0 % [facility] MCV (RBC) [Entitic vol] 89.9 fL 77.0 - 99.0 fL [facility] Platelet mean volume (Bld) [Entitic vol] 9.5 fL 9.0 - 12.7 fL [facility] Platelets (Bld) [#/Vol] 386 10*3/uL 140 - 440 10*3/uL [facility] RBC (Bld) [#/Vol] 3.76 10*6/uL Low 4.40 - 5.9 0 10*6/uL [facility] WBC (Bld) [#/Vol] 7.3 10*3/uL 3.6 - 10.7 10*3/uL [facility] IRON AND TIBCon 04-26-2025 IRON BINDING CAPACITY 136 ug/dL Low 250-450 [facility] Comment on above: Performed By: #### L [id number] ####Fan Installer: BIANCA NICHOLS ([id number])[facility] ([facility])[address] [place] [address] IRON SATURATION 44.1 % Normal 20.0-50.0 [facility] Comment on above: Performed By: #### L [id number] ####Fan Installer: BIANCA NICHOLS ([id number])[facility] ([facility])[address] [place] [address] IRON, TOTAL 60 ug/dL Low 65-175 [facility] Comment on above: Performed By: #### L [id number] ####Fan Installer: BIANCA NICHOLS ([id number])[facility] ([facility])[address] [place] [address] Iron and Iron binding capaci ty panelon 04-26-2025 Interpretation and review of laboratory results Abnormal [facility] Iron [Mass/Vol] 60 ug/dL Low 65 - 175 ug/dL [facility] Iron binding capacity [Mass/Vol] 136 ug/dL Low 250 - 450 ug/dL [facility] Iron saturation [Mass fraction] 44.1 % 20.0 - 50.0 % [facility] Laboratory - Chemistry and C hemistry - challengeon 04-26-2025 Glucose [Mass/Vol] 244 mg/dL High 70 - 100 mg/dL [facility] Glucose [Mass/Vol] 199 mg/dL High 70 - 100 mg/dL [facility] Glucose [Mass/Vol] 219 mg/dL High 70 - 100 mg/dL [facility] Glucose [Mass/Vol] 185 mg/dL High 70 - 100 mg/dL [facility] No Panel Informationon 04-26 Interpretation and review of laboratory results Abnormal [facility] Performed by: [facility], [address] [place] [address] CLIA ID: [id number] [facility] Interpretation and review of laboratory results Abnormal [facility] Performed by: [address] [address] CLIA ID: [id number] [facility] Interpretation and review of laboratory results Abnormal [facility] Performed by: [address] [address] CLIA ID: [id number] [facility] Interpretation and review of laboratory results Abnormal [facility] Performed by: [facility], [address] [place] [address] CLIA ID: [id number] [facility] BASIC METABOLIC PANELon 07-2 -2024 Anion gap [Moles/Vol] 7 mmol/L Normal 3-13 [facility] Comment on above: Performed By: #### L [id number] ####Fan Installer: BIANCA NICHOLS ([id number])[facility])[address] [place] [address] Calcium [Mass/Vol] 8.2 mg/dL Low 8.8-10.0 [facility] Comment on above: Performed By: #### L [id number] ####Fan Installer: BIANCA NICHOLS ([id number])[facility] ([facility])[address] [place] [address] Chloride [Moles/Vol] 101 mmol/L Normal 98-107 [facility] Comment on above: Performed By: #### L [id number] ####Fan Installer: BIANCA NICHOLS ([id number])[facility] ([facility])[address] [place] [address] [place] CO2 [Moles/Vol] 26 mmol/L Normal 23-31 [facility] Comment on above: Performed By: #### L [id number] ####Fan Installer: BIANCA NICHOLS ([id number])[facility])[address] [place] [address] Creatinine [Mass/Vol] 0.73 mg/dL Normal 0.72-1.25 [facility] Comment on above: Performed By: #### L AB15 ####Fan Installer: BIANCA NICHOLS ([id number])[facility])[address] [place] [address] GLOMERULAR FILTRATION RATE ML/MIN/1.73 SQ M.PREDICTED >90.0 Normal >60.0 [facility] Comment on above: Result Comment: Calc ulation based on the Chronic Kidney Disease Epidemiology Collaboration (CKD-EPI) equation refit without adjustment for race Performed By: #### L [id number] ####Fan Installer: BIANCA NICHOLS ([id number])[facility])[address] [place] [address] Glucose [Mass/Vol] 213 mg/dL High 82-115 [facility] Comment on above: Performed By: #### L [id number] ####Fan Installer: BIANCA NICHOLS ([id number])[address] Potassium [Moles/Vol] 4.3 mmol/L Normal 3.5-5.1 [facility] Comment on above: Result Comment: [facility] potassium values may be up to 0.5 mmol/L lower than serum values. Performed By: #### L AB15 ####Fan Installer: BIANCA NICHOLS ([id number])[facility])[address] [place] [address] Sodium [Moles/Vol] 134 mmol/L Low 136-145 [facility] Comment on above: Performed By: #### L [id number] ####Fan Installer: BIANCA NICHOLS ([id number])[facility])[address] [place] [address] [place] Urea nitrogen [Mass/Vol] 14 mg/dL Normal 9-23 [facility] Comment on above: Performed By: #### L [id number] ####Fan Installer: BIANCA NICHOLS ([id number])[facility])[address] [place] [address] Bacteria identified Aer cx N om (Unsp spec)Ordered By: Joy York on 04-25-2025 Gram Stain Result Many Polymorphonuclear leukocytes per low power field Abnormal [facility] Gram Stain Result Negative Abnormal [facility] Gram Stain Result Positive Abnormal [facility] Interpretation and review of laboratory results Abnormal [facility] PBP2A Positive [facility] Basic metabolic 1998 panelon 04-25-2025 Anion gap [Moles/Vol] 7 mmol/L 3 - 13 mmol/L [facility] Calcium [Mass/Vol] 8.2 mg/dL Low 8.8 - 10. 0 mg/dL [facility] Chloride [Moles/Vol] 101 mmol/L 98 - 10 7 mmol/L [facility] CO2 [Moles/Vol] 26 mmol/L 23 - 31 mmol/L [facility] Creatinine [Mass/Vol] 0.73 mg/dL 0.72 - 1.25 mg/dL [facility] GFR/1.73 sq M.predicted (S/P/Bld) [Vol rate/Area] - PINF [facility] Comment on above: Calculation based on the Chronic Kidney Disease Epidemiology Collaboration (CKD-EPI) equation refit without adjustment for race Glucose [Mass/Vol] 213 mg/dL High 82 - 115 mg/dL [facility] Interpretation and review of laboratory results Abnormal [facility] Potassium [Moles/Vol] 4.3 mmol/L 3.5 - 5.1 mmol/L [facility] Comment on above: Plasma potassium leonie ues may be up to 0.5 mmol/L lower than serum values. Sodium [Moles/Vol] 134 mmol/L Low 136 - 145 mmol/L [facility] Urea nitrogen [Mass/Vol] 14 mg/dL 9 - 23 mg/dL [facility] CBC W Auto Differential pane l (Bld)on 04-25-2025 Basophils (Bld) [#/Vol] 0 10*3/uL 0.0 - 0.2 10*3/uL [facility] Basophils/100 WBC (Bld) 0.4 % 0.0 - 2.0 % [facility] Eosinophils (Bld) [#/Vol] 0.1 10*3/uL 0.0 - 0.5 10*3/uL [facility] Eosinophils/100 WBC (Bld) 0.8 % 0.0 - 6.0 % [facility] Erythrocyte distribution width (RBC) [Ratio] 14.8 % 11.5 - 15.0 % [facility] Hematocrit (Bld) [Volume fraction] 32.6 % Low 40.0 - 52.0 % [facility] Hemoglobin (Bld) [Mass/Vol] 10.4 g/dL Low 13.0 - 18.0 g/dL [facility] Immature granulocytes (Bld) [#/Vol] 0 10*3/uL NINF - 0.1 10*3/uL [facility] Immature granulocytes/100 WBC (Bld) 0.4 % 0.0 - 2.0 % [facility] Interpretation and review of laboratory results Abnormal [facility] Lymphocytes (Bld) [#/Vol] 2 10*3/uL 1.0 - 4.3 10*3/uL [facility] Lymphocytes/100 WBC (Bld) 20.7 % 15.0 - 45.0 % [facility] MCH (RBC) [Entitic mass] 28.7 pg 26. 0 - 34.0 pg [facility] MCHC (RBC) [Mass/Vol] 31.9 % 30.5 - 36.0 % [facility] MCV (RBC) [Entitic vol] 90.1 fL 77.0 - 99.0 fL [facility] Monocytes (Bld) [#/Vol] 0.9 10*3/uL 0.0 - 0.9 10*3/uL [facility] Monocytes/100 WBC (Bld) 9.3 % 5.0 - 13.0 % [facility] Neutrophils (Bld) [#/Vol] 6.5 10*3/uL 1.8 - 7.5 10*3/uL [facility] Neutrophils/100 WBC (Bld) 68.4 % 38.0 - 82.0 % [facility] Nucleated RBC/100 WBC (Bld) [Ratio] 0 % [facility] Platelet mean volume (Bld) [Entitic vol] 9.9 fL 9.0 - 12.7 fL [facility] Platelets (Bld) [#/Vol] 421 10*3/uL 140 - 440 10*3/uL [facility] RBC (Bld) [#/Vol] 3.62 10*6/uL Low 4.40 - 5.9 0 10*6/uL [facility] WBC (Bld) [#/Vol] 9.5 10*3/uL 3.6 - 10.7 10*3/uL [facility] CBC WITH AUTO DIFFERENTIALon 04-25-2025 Basophils (Bld) [#/Vol] 0.0 10*3/uL Normal 0.0-0.2 [facility] Comment on above: Performed By: #### L [id number] ####Fan Installer: BIANCA NICHOLS ([id number])[facility] ([facility])[address] [place] [address] Basophils/100 WBC (Bld) 0.4 % Normal 0.0-2.0 [facility] Comment on above: Performed By: #### L [id number] ####Fan Installer: BIANCA NICHOLS ([id number])[facility])[address] [place] [address] Eosinophils (Bld) [#/Vol] 0.1 10*3/uL Normal 0.0-0.5 [facility] Comment on above: Performed By: #### L [id number] ####Fan Installer: BIANCA NICHOLS ([id number])[facility] ([facility])[address] [place] [address] Eosinophils/100 WBC (Bld) 0.8 % Normal 0.0-6.0 [facility] Comment on above: Performed By: #### L [id number] ####Fan Installer: BIANCA NICHOLS ([id number])[facility])[address] [place] [address] Erythrocyte distribution width (RBC) [Ratio] 14.8 % Normal 11.5-15.0 [facility] Comment on above: Performed By: #### L [id number] ####Fan Installer: BIANCA NICHOLS ([id number])[facility] ([facility])[address] [place] [address] Hematocrit (Bld) [Volume fraction] 32.6 % Low 40.0-52.0 [facility] Comment on above: Performed By: #### L [id number] ####Fan Installer: BIANCA NICHOLS ([id number])[facility])[address] [place] [address] Hemoglobin (Bld) [Mass/Vol] 10.4 g/dL Low 13.0-18.0 [facility] Comment on above: Performed By: #### L [id number] ####Fan Installer: BIANCA NICHOLS ([id number])[facility])[address] [place] [address] IMMATURE GRANS % 0.4 % Normal 0.0-2.0 [facility] Comment on above: Performed By: #### L [id number] ####Fan Installer: BIANCA NICHOLS ([id number])[facility])[address] [place] [address] IMMATURE GRANS ABSOLUTE 0.0 10*3/uL Normal <0.1 [facility] Comment on above: Performed By: #### L [id number] ####Fan Installer: BIANCA NICHOLS ([id number])[address] Lymphocytes (Bld) [#/Vol] 2.0 10*3/uL Normal 1.0-4.3 [facility] Comment on above: Performed By: #### L [id number] ####Fan Installer: BIANCA NICHOLS ([id number])[address] Lymphocytes/100 WBC (Bld) 20.7 % Normal 15.0-45.0 [facility] Comment on above: Performed By: #### L [id number] ####Fan Installer: BIANCA NICHOLS ([id number])[facility])[address] [place] [address] MCH (RBC) [Entitic mass] 28.7 pg Normal 26.0-34.0 [facility] Comment on above: Performed By: #### L [id number] ####Fan Installer: BIANCA NICHOLS ([id number])[address] MCHC 31.9 % Normal 30.5-36.0 [facility] Comment on above: Performed By: #### L [id number] ####Fan Installer: BIANCA NICHOLS ([id number])[facility] ([facility])[address] [place] [address] MCV (RBC) [Entitic vol] 90.1 fL Normal 77.0-99.0 [facility] Comment on above: Performed By: #### L [id number] ####Fan Installer: BIANCA NICHOLS ([id number])[facility] ([facility])[address] [place] [address] [place] Monocytes (Bld) [#/Vol] 0.9 10*3/uL Normal 0.0-0.9 [facility] Comment on above: Performed By: #### L [id number] ####Fan Installer: BIANCA NICHOLS ([id number])[facility] ([facility])[address] [place] [address] Monocytes/100 WBC (Bld) 9.3 % Normal 5.0-13.0 [facility] Comment on above: Performed By: #### L [id number] ####Fan Installer: BIANCA NICHOLS ([id number])[facility] ([facility])[address] [place] [address] NEUTROPHILS ABSOLUTE 6.5 10*3/uL Normal 1.8-7.5 [facility] Comment on above: Performed By: #### L [id number] ####Fan Installer: BIANCA NICHOLS ([id number])[facility] ([facility])[address] [place] [address] Neutrophils/100 WBC (Bld) 68.4 % Normal 38.0-82.0 [facility] Comment on above: Performed By: #### L [id number] ####Fan Installer: BIANCA NICHOLS ([id number])[facility] ([facility])[address] [place] [address] [place] NRBC 0.0 /100 WBCs Normal 0.0-2.0 [facility] Comment on above: Performed By: #### L [id number] ####Fan Installer: BIANCA NICHOLS ([id number])[facility] ([facility])[address] [place] [address] Platelet mean volume (Bld) [Entitic vol] 9.9 fL Normal 9.0-12.7 [facility] Comment on above: Performed By: #### L [id number] ####Fan Installer: BIANCA NICHOLS ([id number])[facility] ([facility])[address] [place] [address] Platelets (Bld) [#/Vol] 421 10*3/uL Normal 140-440 [facility] Comment on above: Performed By: #### L [id number] ####Fan Installer: BIANCA NICHOLS ([id number])[facility] ([facility])[address] [place] [address] RBC (Bld) [#/Vol] 3.62 10*6/uL Low 4.40-5.90 [facility] Comment on above: Performed By: #### L [id number] ####Fan Installer: BIANCA NICHOLS ([id number])[facility] ([facility])[address] [place] [address] WBC (Bld) [#/Vol] 9.5 10*3/uL Normal 3.6-10.7 [facility] Comment on above: Performed By: #### L [id number] ####Fan Installer: BIANCA NICHOLS ([id number])[facility] ([facility])[address] [place] [address] Consulton 04-25-2025 Consult [facility] Wound Care CONSULT Note Anmol Reynolds AGE: 64 y.o. GENDER: male : 1960 Subjective: HISTORY of PRESENT ILLNESS HPI Anmol Reynolds is a 64 y.o. male who presents for a wound consult. HPI: Anmol is a 64 y.o. male with past medical history below who presents with chief complaint listed above. Patient sent to [facility] ER [facility] assisted staff to leave the patient's wounds on his sacrum were worsening and becoming infected. Patient is a paraplegic for the last 4 years after surgical complication with Dr. Ashley at [facility]. ER workup was significant for sodium of [...] (96.9 ?F) (Temporal) Resp 21 Ht 6' 3 (1.905 m) Wt 195 lb 6.4 oz (88.6 kg) SpO2 97% BMI 24.42 kg/m? PHYSICAL EXAM General appearance: in no apparent distress, alert, and oriented times 3 Skin: warm and dry Pulmonary: Normal effort, no respiratory distress, no cyanosis Sacrum: [id number]. Wound bed with pink tissue noted. Small serosanguinous drainage. Periwound fragile. 04/25/25 Left ischium: [id number]. Wound bed with eschar, slough and red [...] 0.73 04/25/2025 PT/INR: No results found for: PROTIME, INR Prealbumin: No results found for: PREALBUMIN Albumin:No components found for: LABALBU Sed Rate:No results found for: SEDRATE Micro: No components found for: BC Assessment/Plan: Nursing staff to perform dressing change: [...] to follow Recommend to follow up at [facility] wound care center after hospital discharge. Any questions or concerns please secure chat [facility] wound/ostomy. Thank you for the consult! I personally [...] and a (more content not included)... Normal [facility] Laboratory - Chemistry and C hemistry - challengeon 04-25-2025 Glucose [Mass/Vol] 220 mg/dL High 70 - 100 mg/dL [facility] Glucose [Mass/Vol] 226 mg/dL High 70 - 100 mg/dL [facility] Glucose [Mass/Vol] 281 mg/dL High 70 - 100 mg/dL [facility] Glucose [Mass/Vol] 187 mg/dL High 70 - 100 mg/dL [facility] Laboratory - Microbiology an d Antimicrobial susceptibilityOrdered By: Joy York on 04-25-2025 Bacteria identified Aer cx Nom (Unsp spec) Moderate enteric gosia present [facility] Bacteria identified Aer cx Nom (Unsp spec) Moderate Staphylococcus aureus Abnormal [facility] Comment on above: Methicillin-resistan t Staphylococcus aureus (MRSA) No Panel Informationon 04-25 Interpretation and review of laboratory results Abnormal [facility] [employer] Performed by: [address] [address] CLIA ID: [id number] [facility] Interpretation and review of laboratory results Abnormal [facility] Performed by: [address] [address] CLIA ID: [id number] [facility] Interpretation and review of laboratory results Abnormal [facility] Performed by: [address] [address] CLIA ID: [id number] [facility] Interpretation and review of laboratory results Abnormal [facility] Performed by: [address] [address] CLIA ID: [id number] [facility] [employer] [facility] No Panel InformationOrdered By: Genaro Kelly on 04-25-2025 Case Report Surgical Pathology Case: [id number] Authorizing Provider: Kaela Durand MD Collected: 04/24/2025 0806 Ordering Location: [facility] MAIN OR Received: 04/24/2025 1209 Pathologist: Genaro Kelly MD PhD Specimen: LEFT ISCHIAL BONE WITOI [employer] Work Phone: Clinical Information l7mghEHzAXKsgBXtQIL wM HgyapNmNZMlvPGqZ5Volh qlFKavBV6gNW8zyHoiaNW duNEzLVEePrKwd9ojk767 aMLvm7yrYGSUIMzzKLUNP Jl1aGvsS18jn1F0AwznL6 xyZWQwXGdyZWVuMFxibHV pMTz0UNJdzWSrrdGeLbKn OGTqxHWneXZ0HUAiCL8gu owxBWaiIOzxCXOacfR9CQ PcaMQeO5KyIEPcXN1jicd hJAS8ZIozSQQuMQG6EwLo DJAlm8Xvhis9VzNwuUBdh 3ZnH0vhbtJanCfrctCwse 9uZVxjbGJyZHJsXGJyZHJ zy92cUDEnLjZzmiFhWvBh xy8oekHiF6uqchKfSfkla nIulz9zZGukvJRpkzWcxW YoN7mhsFNLgKG1kDQgU9h 0T2sreKp6JHCvLFZonAi8 NTgyMFxwYXJkXGludGJsX KRjBGysIEPlRlCcR8JuHY 06oHRjFJJtcEWqMN3ydOK oiAaglPg5kZHuAT63uXPc IHNpdGUgKEhDQykgLSBNO CZrTXpeQ8uSZF7mMA3PNA 2sG0NkzGnoseLgaGriw4c liHZfv7AqvPZqhPBph5sx gGRsYMB3AAGnUHEpn05iO FDeHqZqifciOuBoep9gms ZeU5agieAqbkfzxkRhgv7 uZVxjbGJyZHJiXGJyZHJu i26jSZBsqqRfrRUcuYkrh FK5a1zsBXNaX3lpyAsLrU Y4wXC7BcEvW9DqiYb6ZAY nNWSmrjHdfQ24DqdzZAJl y0Q7cqXmjJ7wpWX6UI1yQ IRpT4B9X3JgxIChZSllm6 3kSFZ1TUerZFRuAVvEMpi tQTWPHBdaRLIbNRkOW1Kf NBQuG48aZFXfoUyyvT60A csflg78VEBzxnHrtHDjgT == [facility] Work Phone: Comment n1wwiSAbAGAcaYYqTCZb M GhpmzYsTUIfeYYvJ1Pipi dkCDkpUN6rPM8uiYyeyOI uqRDgVOJlHlRwx0opa417 eOVve6eqEZEYSIfvLLCTG Pa3dSdcS49pm7L9HbimE5 7vrGRdFSR6GSDhBTDpbNC dSUGvQCT4FLBfpKXqK9dr LFEeCY8reqopQNsnDKubZ BTcuOF0MZIkcRDsB1OlTY FcOCasXTHeyra8InYnDh3 vdGVyeTcyMFxwYXJkXHBs YWluXGZzMjAgRHIuIFMuI DWgv77rk87hGJFhnvF1ya MuXHBhcn0= [employer] Work Phone: Disclaimer t4nnlAMuZZUtuLQkAkCu M BWaSPThl8xqJHCleREsZt EwMzNcZnRuYmpcdWMxXGR iEvCkp1pgj204fVYcq6uv SCOcYxV5jRVmVOKvO16sI IBPR003VSUzNTwgg7spt2 GxVMKhlVJxx6B7YCULDFg iXGUILOt6xIplW99zy4U2 VywjW4hwRPBkZEZvE9XpO L9sCQQmWgt4QUU2HKT5EP KyZIWiT9QoQR8yKZUnnBP wVEm7f9btwVazAQKuECG0 f6thKExxxzJjDD4ncd5es Jq5n5qwamJhITOkYYVjqA JYHSCoF7ZuuIzbVn6alJt 4dGhuDiarXUF8Niu7SJ0g uq57imn1bJukJGWabdlqY pY1YEhwEXDghhvjYSv6KL tgOJGkfVE1QNMwxXTrZ4I zRVQgAR2dtec7AWR2BYzu CBQdXuD5FINtlPZrCEZzq YmgRZteg153DHF4GwHnUH 4dW4Keg2G5fV5ypPDbQAO kvSSaZqIvOXNvfo7ogQPq NRhes9OgQYM9mdT1eXCej PCgQNGdMN20Otsbq6KsWt toEUD4VVCazkMgr6Ogz9b pVaKjaaZbM7spJ1OsHKMy EDSvWYHfNdMgyaMvf4Rfj 7FaqRXsqWf5s7brRSEfAL UroBrbg5kwQXO7MAXoH9Y 6hLXas1nrSSqcHZJqeYZ4 sfF1EPBxgECyF4BqtF1fV RGoIG3nshc3j0reKKM1GS zmIDAmMfB4voB5BHXsiGW zSYXmvHmpVSbcl305FLI1 DdKfTJWmm0SaZ2JtbMiqA 03rpSewZ94yUGLauDrkyY 6blGokwZ8mNoQiVjVrGDv xbFxwbGFpblxmMVxmczE2 HAyvhtdyKOPwDPptP8jiK pVkGBNxqGgvGSxpt2KyZS VdOKYzRCViBCscB1ocuN7 roycsVSczLVRjjQyox3wr GgBbbHI5QF4wduSvFJCxl RiusaX5gyIztHobjY6lgP 9mwRyplF6zbXUmkCU4oqu sIGluIHNpdHUgaHlicmlk kDuzdAjqydxitD3oJLA2l XOvJIQ5nIHbKVWaJQQyMA HtqG59vi5rdWOeagTuT4I hC0RhcOKllMrbBajxiJEb xTYlEc2erJEjRY7fACGau FRnD5TwKQ0xEZQgdmdoYW IgVGhlIHVzZSBvZiBvbmU ql1MmuY3oAPUhUHIrVH69 ekTubxZ0bHWiMDYzxtGbw GVzdHMgaXMgcmVndWxhdG KnHXFyMQIyLSNcZDm3wYT ec7WwX6coeMCxkxIjK0Uo iUEvWSUTFK0vETbzf7Ric IVscGPai8VbHYCcJREpfE 8zRVBeZC4bQYHaPFagDTA dqyLsxt5chnJvMAQtEHRr Q0VytimmkIjdcqKlRSRtk z0vcyYeTBH2AINpFFRpiW aqpTJvuKHnSZYubxE3k2N qBOPnw1RyY8WspKSmCSCg kPWgKDZ4g7JgqZ2iAVzpi NLiQFJxNW1mkDZlVVKoLK NsZWFyZWQgYnkgdGhlIFV SLEEqa5QjQP9kNIHhaEgu CDGxxN1ps5AqPBPmk98dM EZEQSkuIFRoZSBGREEgaG FzIGRldGVybWluZWQgdGh hxHZckTHxTKFbMRSfQH7x SXPxwwAvfMOba9QheUDrz zNdk1LthaSlNQKwKRD8Gv BccGFyXHBhciBBbGwgaW1 vdB5lx3IbfW8eKGgycgFf oAJeTf1tnSGvMZ9mYWQqw mFmZmluIGVtYmVkZGVkIH Wds4E0GX1uSGLtqi6lcmy oeKPlqJ4vaHNerkDiJV5i SY4kH4G6rDBtYPUdxyKzo 5xiEZq2bAJcIQVcrZAixV FbPtgiLOJ6YGGzRJX9czM gpaPcWUThvCzejBS4pBRw EZCgIGFjIYAvBC23Q1Lsi 9UxO8gnNX94XBXzFOEdYL SvioTmp3lkEMDxy3wiCGT sqGDkX2PzGZLmsDDyllgn BhHiPIB8GQOfKIL3hFJrA BAcJ7SdsZEfvQZuzS19XV 4wvWO8BY9dYAN6FKrqzD0 uXkQWsO31qj5ijNA2p3Td QD5rG9ZoLIPvi9Y0ctFnK YIrIM1hePGuPYWnUHCrmU lkYXRlZCBvbiBkZWNhbGN wEbjwCGW6zEUfiHElGvAF AMH8fCKfGHAsa6McELYkY FEtkePdayJgYCWqBMI8eY GdSGOfsXJdi81fH8f0RE8 ggVrfGWJstYBrNGSmp0Ny cYLnbXl1kCRfBmYoYXkmE YFtBMdgrHz4cDC4FZ7cMI OvC0FjH0kawNUbRLKsROB xjAVyhg4quLUheD== [facility] Work Phone: Gross Description s7jleWBgUNJwuPOeWWMd M EbnysGgKDJwjWVaG5Aqoj bbOUjgFI2zMQ9dfObqiHW cxUIrRHGeWpEfj3xoi631 oCZbe7hfDIRFYDodBYUQU At0cUvqY19wr4K2GvgbU1 4dbBDgPOR8UECqZPNnoKF kQTXmUIJ7UODjqCGwZ1ol EGWjUC7tphgjADvoQGaaN GHlqWV7AACxyZQbL8PqTY JiILvbVYQgjzq7PzSeGc4 vdGVyeTcyMFxwYXJkXHBs AJefYEPpYdKcLkGmZId7Z CSxfO3xRo9bsKChpL0xvF NyIMpjKCNjfSLifKFyj6A oaWFsIGJvbmUiIGlzIGEg mGnwcd0xVXWpmJ2ueXnso mScHvUeh27oPINpOFJtoC Fdz1SaAXLbYB95TRhtPA6 2EMjmUX9gPAClDiVaCKqu IHNwZWNpbWVuIGlzIGVud RvyETx7GIY6Ek5lwFUsRY CadrAwrbYfS6Nrf6E6qDG sHTZQp0EvVsNnYn4pCGQv YWwgaXMgbmVlZGVkIGZvc kD2wLPey2EeX9aoPO7cQB BccGFyfQ== [employer] Work Phone: Pathologist Interpretation Location [facility], [address] [place] [address], [facility] [address], CLIA: [id number]; Joint Commission: HCO [id number]; CAP: [id number] [facility] [employer] Mobile Phone: Pathology report final diagnosis Narrative y4wcrOLpSAAmlHUnITAbA HpsllSbNGKzuFPmB6Khrg tcYLjnTL5gHE5ksUhmgUN szVJaKOZcUeTef7wmy235 mDSbk3frPBXUTYqmBAAXJ Ve5ePfjN79be8J5MvcdH5 6rjHIfZPB9LXXdWUMvcET vOGMuJUT0QZTkfOXhC3rg FIUnCX6sbznsVFhkOQdfO XUpdDD8JOKvtJNhZ5NqTR EyODowMPDucft7QaOvXm4 vdGVyeTcyMFxwYXJkXHBs YWluXGZzMjAgTEVGVCBJU 5VKISEZCPNHIdTyTUAQN2 BTWTpccGFyXGVuZGFzaCA zAU4VVHABQRUaO5DMVfSJ CWEUR24bXSwST7YKTHOHD YBVFZKIBW5MSJOMPqNAM5 9mA5IhBd6YVOBPQINUBEY IFqnYW4MSBQKXZ0BIMBFB X2LUG21UBCyVZMyOYyldR XJ9 [facility] Work Phone: [facility] Phone: 30on 04-24-2025 30 Problem: Pain - [...] and maintained or improved Outcome: Progressing Normal [facility] [id number] 04-24-[id number] [facility] transportation. SW reviewed chart. Pt is a LT resident of [facility]. [place] is responsible [place] pt transportation for medical appointments. . Normal [facility] BASIC METABOLIC PANELon 04-05 Anion gap [Moles/Vol] 8 mmol/L Normal 3-13 [facility] Comment on above: Performed By: #### L [id number] ####Fan Installer: BIANCA NICHOLS ([id number])[address] Calcium [Mass/Vol] 8.4 mg/dL Low 8.8-10.0 [facility] Comment on above: Performed By: #### L [id number] ####Fan Installer: BIANCA NICHOLS ([id number])[address] Chloride [Moles/Vol] 101 mmol/L Normal 98-107 [facility] Comment on above: Performed By: #### L [id number] ####Fan Installer: BIANCA NICHOLS ([id number])[facility])[address] [place] [address] CO2 [Moles/Vol] 27 mmol/L Normal 23-31 [facility] Comment on above: Performed By: #### L [id number] ####Fan Installer: BIANCA NICHOLS ([id number])[address] Creatinine [Mass/Vol] 0.59 mg/dL Low 0.72-1.25 [facility] Comment on above: Performed By: #### L [id number] ####Fan Installer: BIANCA NICHOLS ([id number])[facility])[address] [place] [address] GLOMERULAR FILTRATION RATE ML/MIN/1.73 SQ M.PREDICTED >90.0 Normal >60.0 [facility] Comment on above: Result Comment: Calc ulation based on the Chronic Kidney Disease Epidemiology Collaboration (CKD-EPI) equation refit without adjustment for race Performed By: #### L [id number] ####Fan Installer: BIANAC NICHOLS ([id number])[facility] ([facility])[address] [place] [address] Glucose [Mass/Vol] 113 mg/dL Normal 82-115 [facility] Comment on above: Performed By: #### L [id number] ####Fan Installer: BIANCA NICHOLS ([id number])[facility])[address] [place] [address] Potassium [Moles/Vol] 4.0 mmol/L Normal 3.5-5.1 [facility] Comment on above: Result Comment: [facility] potassium values may be up to 0.5 mmol/L lower than serum values. Performed By: #### L [id number] ####Fan Installer: BIANCA NICHOLS ([id number])[facility])[address] [place] [address] Sodium [Moles/Vol] 136 mmol/L Normal 136-145 [facility] Comment on above: Performed By: #### L [id number] ####Fan Installer: BIANCA NICHOLS ([id number])[facility])[address] [place] [address] Urea nitrogen [Mass/Vol] 7 mg/dL Low 9-23 [facility] Comment on above: Performed By: #### L [id number] ####Fan Installer: BIANCA NICHOLS ([id number])[facility])[address] [place] [address] Basic metabolic 1998 panelon 04-24-2025 Anion gap [Moles/Vol] 8 mmol/L 3 - 13 mmol/L [facility] Calcium [Mass/Vol] 8.4 mg/dL Low 8.8 - 10. 0 mg/dL [facility] Chloride [Moles/Vol] 101 mmol/L 98 - 10 7 mmol/L [facility] CO2 [Moles/Vol] 27 mmol/L 23 - 31 mmol/L [facility] Creatinine [Mass/Vol] 0.59 mg/dL Low 0.72 - 1.25 mg/dL [facility] GFR/1.73 sq M.predicted (S/P/Bld) [Vol rate/Area] - PINF [facility] Comment on above: Calculation based on the Chronic Kidney Disease Epidemiology Collaboration (CKD-EPI) equation refit without adjustment for race Glucose [Mass/Vol] 113 mg/dL 82 - 115 mg/dL [facility] Interpretation and review of laboratory results Abnormal [facility] Potassium [Moles/Vol] 4 mmol/L 3.5 - 5.1 mmol/L [facility] Comment on above: Plasma potassium leonie ues may be up to 0.5 mmol/L lower than serum values. Sodium [Moles/Vol] 136 mmol/L 136 - 145 mmol/L [facility] Urea nitrogen [Mass/Vol] 7 mg/dL Low 9 - 23 mg/dL [facility] CBC W Auto Differential pane l (Bld)on 04-24-2025 Basophils (Bld) [#/Vol] 0.1 10*3/uL 0.0 - 0.2 10*3/uL [facility] Basophils/100 WBC (Bld) 0.6 % 0.0 - 2.0 % [facility] Eosinophils (Bld) [#/Vol] 0.4 10*3/uL 0.0 - 0.5 10*3/uL [facility] Eosinophils/100 WBC (Bld) 4 % 0.0 - 6.0 % [facility] Erythrocyte distribution width (RBC) [Ratio] 14.9 % 11.5 - 15.0 % [facility] Hematocrit (Bld) [Volume fraction] 32.8 % Low 40.0 - 52.0 % [facility] Hemoglobin (Bld) [Mass/Vol] 10.6 g/dL Low 13.0 - 18.0 g/dL [facility] Immature granulocytes (Bld) [#/Vol] 0 10*3/uL NINF - 0.1 10*3/uL [facility] Immature granulocytes/100 WBC (Bld) 0.4 % 0.0 - 2.0 % [facility] Interpretation and review of laboratory results Abnormal [facility] Lymphocytes (Bld) [#/Vol] 2.2 10*3/uL 1.0 - 4.3 10*3/uL [facility] Lymphocytes/100 WBC (Bld) 23.9 % 15.0 - 45.0 % [facility] MCH (RBC) [Entitic mass] 28.8 pg 26. 0 - 34.0 pg [facility] MCHC (RBC) [Mass/Vol] 32.3 % 30.5 - 36.0 % [facility] MCV (RBC) [Entitic vol] 89.1 fL 77.0 - 99.0 fL [facility] Monocytes (Bld) [#/Vol] 0.7 10*3/uL 0.0 - 0.9 10*3/uL [facility] Monocytes/100 WBC (Bld) 8 % 5.0 - 13.0 % [facility] Neutrophils (Bld) [#/Vol] 5.9 10*3/uL 1.8 - 7.5 10*3/uL [facility] Neutrophils/100 WBC (Bld) 63.1 % 38.0 - 82.0 % [facility] Nucleated RBC/100 WBC (Bld) [Ratio] 0 % [facility] Platelet mean volume (Bld) [Entitic vol] 9.8 fL 9.0 - 12.7 fL [facility] Platelets (Bld) [#/Vol] 367 10*3/uL 140 - 440 10*3/uL [facility] RBC (Bld) [#/Vol] 3.68 10*6/uL Low 4.40 - 5.9 0 10*6/uL [facility] WBC (Bld) [#/Vol] 9.3 10*3/uL 3.6 - 10.7 10*3/uL [facility] CBC WITH AUTO DIFFERENTIALon 04-24-2025 Basophils (Bld) [#/Vol] 0.1 10*3/uL Normal 0.0-0.2 [facility] Comment on above: Performed By: #### L [id number] ####Fan Installer: BIANCA NICHOLS ([id number])[address] Basophils/100 WBC (Bld) 0.6 % Normal 0.0-2.0 [facility] Comment on above: Performed By: #### L [id number] ####Fan Installer: BIANCA NICHOLS ([id number])[facility])[address] [place] [address] Eosinophils (Bld) [#/Vol] 0.4 10*3/uL Normal 0.0-0.5 [facility] Comment on above: Performed By: #### L [id number] ####Fan Installer: BIANCA NICHOLS ([id number])[facility])[address] [place] [address] Eosinophils/100 WBC (Bld) 4.0 % Normal 0.0-6.0 [facility] Comment on above: Performed By: #### L [id number] ####Fan Installer: BIANCA NICHOLS ([id number])[facility])[address] [place] [address] Erythrocyte distribution width (RBC) [Ratio] 14.9 % Normal 11.5-15.0 [facility] Comment on above: Performed By: #### L [id number] ####Fan Installer: BIANCA NICHOLS ([id number])[facility])[address] [place] [address] Hematocrit (Bld) [Volume fraction] 32.8 % Low 40.0-52.0 [facility] Comment on above: Performed By: #### L [id number] ####Fan Installer: BIANCA NICHOLS ([id number])[facility])[address] [place] [address] Hemoglobin (Bld) [Mass/Vol] 10.6 g/dL Low 13.0-18.0 [facility] Comment on above: Performed By: #### L [id number] ####Fan Installer: BIANCA NICHOLS ([id number])[facility])[address] [place] [address] IMMATURE GRANS % 0.4 % Normal 0.0-2.0 [facility] Comment on above: Performed By: #### L [id number] ####Fan Installer: BIANCA NICHOLS ([id number])[address] IMMATURE GRANS ABSOLUTE 0.0 10*3/uL Normal <0.1 [facility] Comment on above: Performed By: #### L [id number] ####Fan Installer: BIANCA NICHOLS ([id number])[facility])[address] [place] [address] Lymphocytes (Bld) [#/Vol] 2.2 10*3/uL Normal 1.0-4.3 [facility] Comment on above: Performed By: #### L [id number] ####Fan Installer: BIANCA NICHOLS ([id number])[address] Lymphocytes/100 WBC (Bld) 23.9 % Normal 15.0-45.0 [facility] Comment on above: Performed By: #### L [id number] ####Fan Installer: BIANCA NICHOLS ([id number])[facility])[address] [place] [address] MCH (RBC) [Entitic mass] 28.8 pg Normal 26.0-34.0 [facility] Comment on above: Performed By: #### L [id number] ####Fan Installer: BIANCA NICHOLS ([id number])[address] MCHC 32.3 % Normal 30.5-36.0 [facility] Comment on above: Performed By: #### L [id number] ####Fan Installer: BIANCA NICHOLS ([id number])[address] MCV (RBC) [Entitic vol] 89.1 fL Normal 77.0-99.0 [facility] Comment on above: Performed By: #### L [id number] ####Fan Installer: BIANCA NICHOLS ([id number])[facility])[address] [place] [address] Monocytes (Bld) [#/Vol] 0.7 10*3/uL Normal 0.0-0.9 [facility] Comment on above: Performed By: #### L [id number] ####Fan Installer: BIANCA NICHOLS ([id number])[facility] ([facility])[address] [place] [address] Monocytes/100 WBC (Bld) 8.0 % Normal 5.0-13.0 [facility] Comment on above: Performed By: #### L [id number] ####Fan Installer: BIANCA NICHOLS ([id number])[facility] ([facility])[address] [place] [address] NEUTROPHILS ABSOLUTE 5.9 10*3/uL Normal 1.8-7.5 [facility] Comment on above: Performed By: #### L [id number] ####Fan Installer: BIANCA NICHOLS ([id number])[facility] ([facility])[address] [place] [address] Neutrophils/100 WBC (Bld) 63.1 % Normal 38.0-82.0 [facility] Comment on above: Performed By: #### L [id number] ####Fan Installer: BIANCA NICHOLS ([id number])[facility] ([facility])[address] [place] [address] NRBC 0.0 /100 WBCs Normal 0.0-2.0 [facility] Comment on above: Performed By: #### L [id number] ####Fan Installer: BIANCA NICHOLS ([id number])[facility] ([facility])[address] [place] [address] Platelet mean volume (Bld) [Entitic vol] 9.8 fL Normal 9.0-12.7 [facility] Comment on above: Performed By: #### L [id number] ####Fan Installer: BIANCA NICHOLS ([id number])[facility] ([facility])[address] [place] [address] Platelets (Bld) [#/Vol] 367 10*3/uL Normal 140-440 [facility] Comment on above: Performed By: #### L [id number] ####Fan Installer: BIANCA NICHOLS ([id number])[facility])[address] [place] [address] RBC (Bld) [#/Vol] 3.68 10*6/uL Low 4.40-5.90 [facility] Comment on above: Performed By: #### L [id number] ####Fan Installer: BIANCA NICHOLS ([id number])[facility])[address] [place] [address] WBC (Bld) [#/Vol] 9.3 10*3/uL Normal 3.6-10.7 [facility] Comment on above: Performed By: #### L [id number] ####Fan Installer: BIANCA NICHOLS ([id number])[facility])[address] [place] [address] CULTURE ANAEROBICon 04-24-20 CULTURE ANAEROBIC ANAEROBIC CULTURE Reference No growth at 5 days [ S = SUSCEPTIBLE R = RESISTANT I = INTERMEDIATE S-DD = Susceptible-dose dependent NS = Non-susceptible NO = No Interpretation ] Normal [facility] Comment on above: Performed By: #### L [id number] ####Fan Installer: BIANCA NICHOLS ([id number])[facility])[address] [place] [address] CULTURE ANAEROBIC ANAEROBIC CULTURE Reference Mixed aerobic and anaerobic bacteria present. CLOSTRIDIUM RAMOSUM Few Clostridium ramosum (A) [ S = SUSCEPTIBLE R = RESISTANT I = INTERMEDIATE S-DD = Susceptible-dose dependent NS = Non-susceptible NO = No Interpretation ] Normal [facility] Comment on above: Performed By: #### L [id number] #### Fan Installer: BIANCA NICHOLS ([id number]) [facility]) [address] [place] [address] CULTURE, AEROBIC BACTERIA WI TH GRAM STAINon [...] Non-susceptible NO = No Interpretation ] Normal [facility] Comment on above: Performed By: #### L [id number] ####Fan Installer: BIANCA NICHOLS ([id number])[facility])[address] [place] [address] CULTURE, AEROBIC BACTERIA WITH GRAM STAIN CULTURE [...] Non-susceptible NO = No Interpretation ] Normal [facility] Comment on above: Performed By: #### L [id number] #### Fan Installer: BIANCA NICHOLS ([id number]) [facility] [address] [place] [address] Laboratory - Chemistry and C hemistry - challengeon 04-24-2025 Glucose [Mass/Vol] 348 mg/dL High 70 - 100 mg/dL [facility] Glucose [Mass/Vol] 407 mg/dL High 70 - 100 mg/dL [facility] Glucose [Mass/Vol] 259 mg/dL High 70 - 100 mg/dL [facility] Glucose [Mass/Vol] 135 mg/dL High 70 - 100 mg/dL [facility] Glucose [Mass/Vol] 126 mg/dL High 70 - 100 mg/dL [facility] Laboratory - Drug toxicology on 04-24-2025 Vancomycin trough [Mass/Vol] 12 ug/mL [facility] [employer] No Panel Informationon 04-24 Interpretation and review of laboratory results Abnormal [facility] Performed by: [address] [address] CLIA ID: [id number] [facility] Interpretation and review of laboratory results Abnormal [facility] Performed by: [place] [address] CLIA ID: [id number] [facility] Interpretation and review of laboratory results Abnormal [facility] Performed by: [address] [address] CLIA ID: [id number] [facility] Interpretation and review of laboratory results Abnormal [facility] Performed by: [address] [address] CLIA ID: [id number] [facility] Interpretation and review of laboratory results Abnormal [facility] Performed by: [address] [address] CLIA ID: [id number] [facility] Nursing Noteon 04-24-2025 Nursing Note Patient states nobod y here to update Normal [facility] Op Noteon 04-24-2025 Op Note - Attestation signed by Kaela Durand MD at 04/26/2025 4:55 PM I attest that I was present and supervised the entire procedure. I agree with the operative details as documented in the resident's note. Excisional debridement of necrotic ischial wound, total wound measurement 7 x 4 cm = 28 cm2 [CPT 45172, 12087] Open biopsy of left ischium [CPT 54512] This note is electronically signed by: Kaela [...] achieved with bovie electrocautery. Two pieces of [place] patch were placed in the wound bed. Betadine soak Kerlix was then packed in the wound. Dressings were applied overtop. The sponge, instrument and needle counts were correct at the end of the case. The patient was extubated and transferred to PACU in stable condition. [facility] Progress Noteon 04-24-2025 Progress Note [...] good appetite - tolerated 100% of his brkfst after OR today) Weight Loss: No significant [...] (BLE Edema: Moderate pitting, indentation subsides rapidly) Magnet Placer Strength: Not Performed Chief Complaint Patient presents with Wound Infection Per EMS pt was sent here from the [place] for wound infections. 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 Nurse states she ordered [...] MAP (mmHg): (more content not included)... Normal [facility] Progress Note Patient out of room at time of visit Wound care to follow up at a later time JOE Diaz CNP [facility] Progress Note - Attestation signed [...] and possible. 64M with paraplegia following a Spine surgery for MRSA 3 years ago presents with a sacral and ischial ulcer requiring debridement. On Eliquis for A-fib, last dose was 04/22. I evaluated the patient in the pre-op area and discussed the plan for the OR. 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 I explained the plan to clean up [...] MD Division of Trauma Department of Surgery [facility] [1] Patient Active Problem List Diagnosis [...] s/p surgical complication with Dr. Ashley at [facility], HLD, HTN, MDD, OA, a-fib on eliquis, chronic sacral wounds who presents from his group home after he states the nurses have [...] (97.8 ?F) (Temporal) Resp 20 Ht 6' 3 (1.905 m) Wt 195 lb 6.4 oz (88.6 kg) SpO2 95% BMI 24.42 kg/m? INTAKE/OUTPUT: Intake/Output Summary (Last 24 hours) (more content not included)... Normal [facility] VANCOMYCIN, AUC TIMED DOSING on 04-24-2025 VANCOMYCIN, AUC 12.0 ug/mL Normal [facility] Comment on above: Result Comment: RENOE R COMMENTS: Please draw random level at least >2 hours after the end of the last vancomycin infusion, or 30-minutes before next infusion. Toxicity is seen at concentrations >80-100 ug/mL Therapeutic (Peak) range: 20-40 Therapeutic (Trough) range: 5-10 Performed By: #### L [id number] ####Fan Installer: BIANCA NICHOLS ([id number])[facility])[address] [place] [address] Vancomycin trough [Mass/Vol] on 04-24-2025 Toxicity is seen at concentrations >80-100 ug/mL Therapeutic (Peak) range: 20-40 Therapeutic (Trough) range: 5-10 [facility] 30on 04-23-2025 30 Problem: Pain - Adul t Goal: Verbalizes/displays adequate comfort level or baseline comfort level Outcome: Progressing Problem: Safety - Adult Goal: Free from fall injury Outcome: Progressing Problem: Chronic Conditions and Co-morbidities Goal: Patient's chronic conditions and co-morbidity symptoms are monitored and maintained or improved Outcome: Progressing Normal [facility] 30 Problem: Pain - Adul t Goal: [...] and maintained or improved Outcome: Progressing Normal [facility] BASIC METABOLIC PANELon 2 Anion gap [Moles/Vol] 7 mmol/L Normal 3-13 [facility] Comment on above: Performed By: #### L AB15 ####Fan Installer: BIANCA NICHOLS ([id number])[facility] ([facility])[address] [place] [address] Calcium [Mass/Vol] 8.1 mg/dL Low 8.8-10.0 [facility] Comment on above: Performed By: #### L AB15 ####Fan Installer: BIANCA NICHOLS ([id number])[facility] ([facility])[address] [place] [address] Chloride [Moles/Vol] 105 mmol/L Normal 98-107 [facility] Comment on above: Performed By: #### L AB15 ####Fan Installer: BIANCA NICHOLS ([id number])[facility] ([facility])[address] [place] [address] CO2 [Moles/Vol] 21 mmol/L Low 23-31 [facility] Comment on above: Performed By: #### L AB15 ####Fan Installer: BIANCA NICHOLS ([id number])[facility])[address] [place] [address] Creatinine [Mass/Vol] 0.54 mg/dL Low 0.72-1.25 [facility] Comment on above: Performed By: #### L AB15 ####Fan Installer: BIANCA NICHOLS ([id number])[facility] ([facility])[address] [place] [address] GLOMERULAR FILTRATION RATE ML/MIN/1.73 SQ M.PREDICTED >90.0 Normal >60.0 [facility] Comment on above: Result Comment: Calc ulation based on the Chronic Kidney Disease Epidemiology Collaboration (CKD-EPI) equation refit without adjustment for race Performed By: #### L AB15 ####Fan Installer: BIANCA NICHOLS ([id number])[facility] ([facility])[address] [place] [address] Glucose [Mass/Vol] 133 mg/dL High 82-115 [facility] Comment on above: Performed By: #### L AB15 ####Fan Installer: BIANCA NICHOLS ([id number])[facility])[address] [place] [address] Potassium [Moles/Vol] 3.8 mmol/L Normal 3.5-5.1 [facility] Comment on above: Result Comment: [facility] potassium values may be up to 0.5 mmol/L lower than serum values. Performed By: #### L [id number] ####Fan Installer: BIANCA NICHOLS ([id number])[facility] ([facility])[address] [place] [address] Sodium [Moles/Vol] 133 mmol/L Low 136-145 [facility] Comment on above: Performed By: #### L [id number] ####Fan Installer: BIANCA NICHOLS ([id number])[facility])[address] [place] [address] Urea nitrogen [Mass/Vol] 8 mg/dL Low 9-23 [facility] Comment on above: Performed By: #### L [id number] ####Fan Installer: BIANCA NICHOLS ([id number])[address] Basic metabolic 1998 panelon 04-23-2025 Anion gap [Moles/Vol] 7 mmol/L 3 - 13 mmol/L [facility] [employer] Calcium [Mass/Vol] 8.1 mg/dL Low 8.8 - 10. 0 mg/dL [facility] [employer] Chloride [Moles/Vol] 105 mmol/L 98 - 10 7 mmol/L [facility] [employer] CO2 [Moles/Vol] 21 mmol/L Low 23 - 31 mmol/L [facility] [employer] Creatinine [Mass/Vol] 0.54 mg/dL Low 0.72 - 1.25 mg/dL [facility] GFR/1.73 sq M.predicted (S/P/Bld) [Vol rate/Area] - PINF [facility] Comment on above: Calculation based on the Chronic Kidney Disease Epidemiology Collaboration (CKD-EPI) equation refit without adjustment for race Glucose [Mass/Vol] 133 mg/dL High 82 - 115 mg/dL [facility] Interpretation and review of laboratory results Abnormal [facility] Potassium [Moles/Vol] 3.8 mmol/L 3.5 - 5.1 mmol/L [facility] Comment on above: Plasma potassium leonie ues may be up to 0.5 mmol/L lower than serum values. Sodium [Moles/Vol] 133 mmol/L Low 136 - 145 mmol/L [facility] [employer] Urea nitrogen [Mass/Vol] 8 mg/dL Low 9 - 23 mg/dL [facility] CBC W Auto Differential pane l (Bld)on 04-23-2025 Basophils (Bld) [#/Vol] 0.1 10*3/uL 0.0 - 0.2 10*3/uL [facility] Basophils/100 WBC (Bld) 0.5 % 0.0 - 2.0 % [facility] Eosinophils (Bld) [#/Vol] 0.3 10*3/uL 0.0 - 0.5 10*3/uL [facility] Eosinophils/100 WBC (Bld) 3.6 % 0.0 - 6.0 % [facility] Erythrocyte distribution width (RBC) [Ratio] 14.9 % 11.5 - 15.0 % [facility] Hematocrit (Bld) [Volume fraction] 30.7 % Low 40.0 - 52.0 % [facility] Hemoglobin (Bld) [Mass/Vol] 9.9 g/dL Low 13.0 - 18.0 g/dL [facility] Immature granulocytes (Bld) [#/Vol] 0 10*3/uL NINF - 0.1 10*3/uL [facility] Immature granulocytes/100 WBC (Bld) 0.4 % 0.0 - 2.0 % [facility] Interpretation and review of laboratory results Abnormal [facility] Lymphocytes (Bld) [#/Vol] 2.2 10*3/uL 1.0 - 4.3 10*3/uL [facility] Lymphocytes/100 WBC (Bld) 23.6 % 15.0 - 45.0 % [facility] MCH (RBC) [Entitic mass] 28.5 pg 26. 0 - 34.0 pg [facility] MCHC (RBC) [Mass/Vol] 32.2 % 30.5 - 36.0 % [facility] MCV (RBC) [Entitic vol] 88.5 fL 77.0 - 99.0 fL [facility] Monocytes (Bld) [#/Vol] 0.8 10*3/uL 0.0 - 0.9 10*3/uL [facility] Monocytes/100 WBC (Bld) 8.7 % 5.0 - 13.0 % [facility] Neutrophils (Bld) [#/Vol] 5.9 10*3/uL 1.8 - 7.5 10*3/uL [facility] Neutrophils/100 WBC (Bld) 63.2 % 38.0 - 82.0 % [facility] Nucleated RBC/100 WBC (Bld) [Ratio] 0 % [facility] Platelet mean volume (Bld) [Entitic vol] 9.7 fL 9.0 - 12.7 fL [facility] Platelets (Bld) [#/Vol] 352 10*3/uL 140 - 440 10*3/uL [facility] RBC (Bld) [#/Vol] 3.47 10*6/uL Low 4.40 - 5.9 0 10*6/uL [facility] WBC (Bld) [#/Vol] 9.4 10*3/uL 3.6 - 10.7 10*3/uL [facility] CBC WITH AUTO DIFFERENTIALon 04-23-2025 Basophils (Bld) [#/Vol] 0.1 10*3/uL Normal 0.0-0.2 [facility] Comment on above: Performed By: #### L [id number] ####Fan Installer: BIANCA NICHOLS ([id number])[facility])[address] [place] [address] Basophils/100 WBC (Bld) 0.5 % Normal 0.0-2.0 [facility] Comment on above: Performed By: #### L [id number] ####Fan Installer: BIANCA NICHOLS ([id number])[facility])[address] [place] [address] Eosinophils (Bld) [#/Vol] 0.3 10*3/uL Normal 0.0-0.5 [facility] Comment on above: Performed By: #### L [id number] ####Fan Installer: BIANCA NICHOLS ([id number])[facility])[address] [place] [address] Eosinophils/100 WBC (Bld) 3.6 % Normal 0.0-6.0 [facility] Comment on above: Performed By: #### L [id number] ####Fan Installer: BIANCA NICHOLS ([id number])[facility])[address] [place] [address] Erythrocyte distribution width (RBC) [Ratio] 14.9 % Normal 11.5-15.0 [facility] Comment on above: Performed By: #### L [id number] ####Fan Installer: BIANCA NICHOLS ([id number])[facility])[address] [place] [address] Hematocrit (Bld) [Volume fraction] 30.7 % Low 40.0-52.0 [facility] Comment on above: Performed By: #### L [id number] ####Fan Installer: BIANCA NICHOLS ([id number])[facility])[address] [place] [address] Hemoglobin (Bld) [Mass/Vol] 9.9 g/dL Low 13.0-18.0 [facility] Comment on above: Performed By: #### L [id number] ####Fan Installer: BIANCA NICHOLS ([id number])[facility])[address] [place] [address] IMMATURE GRANS % 0.4 % Normal 0.0-2.0 [facility] Comment on above: Performed By: #### L [id number] ####Fan Installer: BIANCA NICHOLS ([id number])[address] IMMATURE GRANS ABSOLUTE 0.0 10*3/uL Normal <0.1 [facility] Comment on above: Performed By: #### L [id number] ####Fan Installer: BIANCA NICHOLS ([id number])[facility])[address] [place] [address] Lymphocytes (Bld) [#/Vol] 2.2 10*3/uL Normal 1.0-4.3 [facility] Comment on above: Performed By: #### L [id number] ####Fan Installer: BIANCA NICHOLS ([id number])[facility])[address] [place] [address] Lymphocytes/100 WBC (Bld) 23.6 % Normal 15.0-45.0 [facility] Comment on above: Performed By: #### L [id number] ####Fan Installer: BIANCA NICHOLS ([id number])[facility])[address] [place] [address] MCH (RBC) [Entitic mass] 28.5 pg Normal 26.0-34.0 [facility] Comment on above: Performed By: #### L [id number] ####Fan Installer: BIANCA NICHOLS ([id number])[facility])[address] [place] [address] MCHC 32.2 % Normal 30.5-36.0 [facility] Comment on above: Performed By: #### L [id number] ####Fan Installer: BIANCA NICHOLS ([id number])[facility])[address] [place] [address] MCV (RBC) [Entitic vol] 88.5 fL Normal 77.0-99.0 [facility] Comment on above: Performed By: #### L [id number] ####Fan Installer: BIANCA NICHOLS ([id number])[facility])[address] [place] [address] Monocytes (Bld) [#/Vol] 0.8 10*3/uL Normal 0.0-0.9 [facility] Comment on above: Performed By: #### L [id number] ####Fan Installer: BIANCA NICHOLS ([id number])[facility])[address] [place] [address] Monocytes/100 WBC (Bld) 8.7 % Normal 5.0-13.0 [facility] Comment on above: Performed By: #### L [id number] ####Fan Installer: BIANCA NICHOLS ([id number])[facility])[address] [place] [address] NEUTROPHILS ABSOLUTE 5.9 10*3/uL Normal 1.8-7.5 [facility] Comment on above: Performed By: #### L [id number] ####Fan Installer: BIANCA NICHOLS ([id number])[facility])[address] [place] [address] Neutrophils/100 WBC (Bld) 63.2 % Normal 38.0-82.0 [facility] Comment on above: Performed By: #### L [id number] ####Fan Installer: BIANCA NICHOLS ([id number])[facility] ([facility])[address] [place] [address] NRBC 0.0 /100 WBCs Normal 0.0-2.0 [facility] Comment on above: Performed By: #### L [id number] ####Fan Installer: BIANCA NICHOLS ([id number])[facility] ([facility])[address] [place] [address] Platelet mean volume (Bld) [Entitic vol] 9.7 fL Normal 9.0-12.7 [facility] Comment on above: Performed By: #### L [id number] ####Fan Installer: BIANCA NICHOLS ([id number])[facility] ([facility])[address] [place] [address] Platelets (Bld) [#/Vol] 352 10*3/uL Normal 140-440 [facility] Comment on above: Performed By: #### L [id number] ####Fan Installer: BIANCA NICHOLS ([id number])[facility] ([facility])[address] [place] [address] RBC (Bld) [#/Vol] 3.47 10*6/uL Low 4.40-5.90 [facility] Comment on above: Performed By: #### L [id number] ####Fan Installer: BIANCA NICHOLS ([id number])[facility] ([facility])[address] [place] [address] WBC (Bld) [#/Vol] 9.4 10*3/uL Normal 3.6-10.7 [facility] Comment on above: Performed By: #### L [id number] ####Fan Installer: BIANCA NICHOLS ([id number])[facility] ([facility])[address] [place] [address] Laboratory - Chemistry and C hemistry - challengeon 04-23-2025 Glucose [Mass/Vol] 189 mg/dL High 70 - 100 mg/dL [facility] Glucose [Mass/Vol] 119 mg/dL High 70 - 100 mg/dL [facility] Glucose [Mass/Vol] 231 mg/dL High 70 - 100 mg/dL [facility] Glucose [Mass/Vol] 217 mg/dL High 70 - 100 mg/dL [facility] No Panel Informationon 04-23 Interpretation and review of laboratory results Abnormal [facility] Performed by: [facility], [address] [place] [address] CLIA ID: [id number] [facility] Interpretation and review of laboratory results Abnormal [facility] Performed by: [facility], [address] [place] [address] CLIA ID: [id number] [facility] Interpretation and review of laboratory results Abnormal [facility] Performed by: [address] [address] CLIA ID: [id number] [facility] Interpretation and review of laboratory results Abnormal [facility] Performed by: [facility], [address] [place] [address] CLIA ID: [id number] [facility] 30on 04-22-2025 30 Problem: Pain - Adul [...] and maintained or improved Outcome: Progressing Normal [facility] 30 Problem: Pain - Adul t Goal: [...] and maintained or improved Outcome: Progressing Normal [facility] 36on 04-22-2025 36 Name of Caller: Milady Contact Physician requesting Consult: Alberto Boogie AALIYAH / attending provider when ordered Dr. Georgette Bueno [phone] Patient Location (facility name, room, bed number): [facility] Room 465B Patient Diagnosis/Reason for Consult: Wound infection, on Cefepime Provider being paged: Dr. Alvarez Time page was sent: 8:29 AM Department of provider being paged: Infectious Disease Page Content: Received a call from [address] and spoke to Milady [phone] she was asked to send out a consult from Alberto Boogie AALIYAH / attending provider when ordered Dr. Georgette Bueno [phone], is requesting a consult. Information that was provided is: wound infection, on cefepime. PT in [facility] Room 465 B Message sent via Secure Chat [facility] CT PELVIS W IV CONTRASTon CT PELVIS W IV CONTRAST [facility] 1960 [id number] Exam Date/Time: 04/22/2025 00:01 Procedure: CT PELVIS [...] Electronically Signed Date/Time: 04/22/2025 12:31 AM EDT [facility] CT Pelvis W contrast Poli [...] MD Electronically Signed Date/Time: 04/22/2025 12:31 AM [facility] Patient Name[facility] 1960 [id number] Exam Date/Time: 04/22/2025 00:01 Procedure: CT PELVIS [...] muscles, and hip muscles (paralysis patient). 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 History of Present Illness: 64 M with h/o MRSA lumbar epidural abscess from 2021, s/p decompression and fusion, but left paraplegic with neurogenic bladder. Recent hospitlaizaitons for PNA as well as [facility] Proteus UTI/ sepsis recently at [facility]. He had a sacral decubitus ulcer for years, was already improving but worsened since most recent prolonged hospitalization once more in February 2025. Buttock ulcer developed that time as well. Patient stabilized, completed IV antibiotics, and was doing well except at [facility] increased concern for worsening wound infection, Patient [...] Resource Strain: Low Risk (04/24/2023) Received from [facility] Overall Financial Resource Strain (CARDIA) Difficulty of [...] -- -- -- -- 1.905 m (6' 3) 88.6 kg (195 lb 6.4 oz) 04/22/25 0230 108/65 36.4 ?C (97.5 ?F) Temporal 73 16 97 % -- -- 04/21/25 2228 113/62 36.7 ?C (98.1 ?F) Oral 82 16 95 % 1.905 m (6' 3) 90.7 kg (200 lb) Physical Exam: Physical [...] atrophy to (more content not included)... Normal [facility] Consult - Attestation signed by Meliton Carrero [...] appropriate exam and evaluation Meliton Carrero MD, [facility] Trauma, Surgical Critical Care & Acute Care Surgery Division of Trauma Department of Surgery [facility] [1] Patient Active Problem List Diagnosis [...] EMS pt was sent here from the [place] for wound infections. Pt has two wound on his sacrum - one at the top of sacrum and one at the bottom of the buttocks. Denies any fever/ CP/FEVER/ SOB. Pt is paralysis. 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 male with significant past medical history of paraplegia s/p surgical complication with Dr. Ashley at [facility], HLD, HTN, MDD, OA, a-fib on eliquis, chronic sacral wounds who presents from his group home after he states the nurses have [...] Labs reviewed signific (more content not included)... Normal [facility] Consult Pharmacy Managed Vancomycin Dosing Service Consult Note Consult Date: 04/22/25 Patient Name: Anmol Reynolds Allergies: Patient has no known allergies. Age: 64 y.o. Sex: male Estimated body mass index is 25 kg/m? as calculated from the following: Height as of this encounter: 1.905 m (6' 3). Weight as of this encounter: 90.7 kg [...] creatinine, and vancomycin levels interfaced automatically to [employer] and data has been analyzed and interpreted. [...] with questions. DATE: 04/22/25 TIME: 2:39 AM [employer]na Workman [facility] Clinical Pharmacist Available via Secure Chat Normal [facility] Laboratory - Chemistry and C hemistry - challengeon 04-22-2025 Glucose [Mass/Vol] 157 mg/dL High 70 - 100 mg/dL [facility] Glucose [Mass/Vol] 250 mg/dL High 70 - 100 mg/dL [facility] Glucose [Mass/Vol] 356 mg/dL High 70 - 100 mg/dL [facility] Glucose [Mass/Vol] 277 mg/dL High 70 - 100 mg/dL [facility] Average glucose Estimated from glycated hemoglobin (Bld) [Mass/Vol] 180 mg/dL [facility] Laboratory - Drug toxicology on 04-22-2025 Vancomycin trough [Mass/Vol] 12.4 ug/mL [facility] Laboratory - Hematology and Cell countson 04-22-2025 HbA1c (Bld) [Mass fraction] 7.9 % High [facility] Comment on above: Normal less than 5.7 % Prediabetes 5.7% to 6.4% Diabetes 6.5% or higher --HgbA1C levels may not be accurate in patients who have renal disease, received recent blood transfusions, are anemic, or who have dyshemoglobinemia. No Panel Informationon 04-22 Interpretation and review of laboratory results Abnormal [facility] Performed by: [address] [address] CLIA ID: [id number] [facility] Interpretation and review of laboratory results Abnormal [facility] Performed by: [address] [address] CLIA ID: [id number] [facility] Interpretation and review of laboratory results Abnormal [facility] Performed by: [address] [address] CLIA ID: [id number] [facility] Interpretation and review of laboratory results Abnormal [facility] Performed by: [address] [address] CLIA ID: [id number] [facility] Interpretation and review of laboratory results Abnormal [facility] HbA1c values of 5.7-6.4 percent indicate an increased risk for developing diabetes mellitus. HbA1c values greater than or equal to 6.5 percent are diagnostic of diabetes mellitus. For diagnosis of diabetes in individuals without unequivocal hyperglycemia, results should be confirmed by repeat testing. [facility]ANCOM[facility], AUC TIMED DOSING on 04-22-2025 VANCOMYCIN, AUC 12.4 ug/mL Normal [employer] [facility] Comment on above: Result Comment: [facility] COMMENTS: Please draw random level at least >2 hours after the end of the last vancomycin infusion, or 30-minutes before next infusion. Toxicity is seen at concentrations >80-100 ug/mL Therapeutic (Peak) range: 20-40 Therapeutic (Trough) range: 5-10 Performed By: #### L [id number] ####Fan Installer: BIANCA NICHOLS ([id number])[facility] [place] [address] Vancomycin trough [Mass/Vol] on 04-22-2025 Toxicity is seen at concentrations >80-100 ug/mL Therapeutic (Peak) range: 20-40 Therapeutic (Trough) range: 5-10 [facility] [employer] Wound Cultureon 04-22-2025 WC L BUTTOCKS Wound Culture Copy of report sent to Infection Control Printer [id number] [facility]/20/25 0714 [facility] Meth. resistant Staph. aureus Amount Growth 3+ [...] SYN-S S Vancomycin Islt HARINDER <=0.5 Normal [facility] Comment on above: Performed By: #### L 100.0500, L500.4050, L501.6710, L101.9900 #### [facility] [address] [place], [place] [address], [place], [id number] BLOOD CULTUREon 04-21-2025 Bacteria identified Cx Nom (Bld) BLOOD CULTURE Reference No growth at 5 days ORDER COMMENTS: Blood Collection Site: Left PICC Purple Lumen [ S = SUSCEPTIBLE R = RESISTANT I = INTERMEDIATE S-DD = Susceptible-dose dependent NS = Non-susceptible NO = No Interpretation ] Normal [facility] Comment on above: Performed By: #### L [id number] #### Fan Installer: BIANCA NICHOLS ([id number]) [address] Bacteria identified Cx Nom (Bld) BLOOD CULTURE Reference No growth at 5 days ORDER COMMENTS: Blood Collection Site: Right Forearm [ S = SUSCEPTIBLE R = RESISTANT I = INTERMEDIATE S-DD = Susceptible-dose dependent NS = Non-susceptible NO = No Interpretation ] [facility] Comment on above: Performed By: #### L [id number] #### Fan Installer: BIANCA NICHOLS ([id number]) [facility] ([facility]) [address] [place] [address] CBC W Auto Differential pane l (Bld)on 04-21-2025 Basophils (Bld) [#/Vol] 0.1 10*3/uL 0.0 - 0.2 10*3/uL [facility] Basophils/100 WBC (Bld) 0.6 % 0.0 - 2.0 % [facility] Eosinophils (Bld) [#/Vol] 0.3 10*3/uL 0.0 - 0.5 10*3/uL [facility] Eosinophils/100 WBC (Bld) 2.3 % 0.0 - 6.0 % [facility] Erythrocyte distribution width (RBC) [Ratio] 14.9 % 11.5 - 15.0 % [facility] Hematocrit (Bld) [Volume fraction] 35.6 % Low 40.0 - 52.0 % [facility] Hemoglobin (Bld) [Mass/Vol] 11.7 g/dL Low 13.0 - 18.0 g/dL [facility] Immature granulocytes (Bld) [#/Vol] 0.1 10*3/uL High NINF - 0.1 10*3/uL [facility] Immature granulocytes/100 WBC (Bld) 0.5 % 0.0 - 2.0 % [facility] Interpretation and review of laboratory results Abnormal [facility] Lymphocytes (Bld) [#/Vol] 2.3 10*3/uL 1.0 - 4.3 10*3/uL [facility] Lymphocytes/100 WBC (Bld) 18.1 % 15.0 - 45.0 % [facility] MCH (RBC) [Entitic mass] 29 pg 26. 0 - 34.0 pg [facility] MCHC (RBC) [Mass/Vol] 32.9 % 30.5 - 36.0 % [facility] MCV (RBC) [Entitic vol] 88.3 fL 77.0 - 99.0 fL [facility] Monocytes (Bld) [#/Vol] 1 10*3/uL High 0.0 - 0.9 10*3/uL [facility] Monocytes/100 WBC (Bld) 7.8 % 5.0 - 13.0 % [facility] Neutrophils (Bld) [#/Vol] 8.8 10*3/uL High 1.8 - 7.5 10*3/uL [facility] Neutrophils/100 WBC (Bld) 70.7 % 38.0 - 82.0 % [facility] Nucleated RBC/100 WBC (Bld) [Ratio] 0 % [facility] Platelet mean volume (Bld) [Entitic vol] 9.8 fL 9.0 - 12.7 fL [facility] Platelets (Bld) [#/Vol] 372 10*3/uL 140 - 440 10*3/uL [facility] RBC (Bld) [#/Vol] 4.03 10*6/uL Low 4.40 - 5.9 0 10*6/uL [facility] WBC (Bld) [#/Vol] 12.5 10*3/uL High 3.6 - 10.7 10*3/uL [facility] CBC WITH AUTO DIFFERENTIALon 04-21-2025 Basophils (Bld) [#/Vol] 0.1 10*3/uL Normal 0.0-0.2 [facility] Comment on above: Performed By: #### Mina [id number], [id number] ####Fan Installer: BIANCA NICHOLS ([id number])[facility])[address] [place] [address] Basophils/100 WBC (Bld) 0.6 % Normal 0.0-2.0 [facility] Comment on above: Performed By: #### Mina [id number], [id number] ####Fan Installer: BIANCA NICHOLS ([id number])[facility] ([facility])[address] [place] [address] [place] Eosinophils (Bld) [#/Vol] 0.3 10*3/uL Normal 0.0-0.5 [facility] Comment on above: Performed By: #### L [id number], [id number] ####Fan Installer: BIANCA NICHOLS ([id number])[facility] ([facility])[address] [place] [address] [place] Eosinophils/100 WBC (Bld) 2.3 % Normal 0.0-6.0 [facility] Comment on above: Performed By: #### Mina [id number], [id number] ####Fan Installer: BIANCA NICHOLS ([id number])[address] Erythrocyte distribution width (RBC) [Ratio] 14.9 % Normal 11.5-15.0 [facility] Comment on above: Performed By: #### Mina VOGEL, [id number] ####Fan Installer: BIANCA NICHOLS ([id number])[address] Hematocrit (Bld) [Volume fraction] 35.6 % Low 40.0-52.0 [facility] Comment on above: Performed By: #### Mina VOGEL, [id number] ####Fan Installer: BIANCA NICHOLS ([id number])[address] Hemoglobin (Bld) [Mass/Vol] 11.7 g/dL Low 13.0-18.0 [facility] Comment on above: Performed By: #### Mina VOGEL, [id number] ####Fan Installer: BIANCA NICHOLS ([id number])[address] IMMATURE GRANS % 0.5 % Normal 0.0-2.0 [facility] Comment on above: Performed By: #### Mina VOGEL, [id number] ####Fan Installer: BIANCA NICHOLS ([id number])[address] IMMATURE GRANS ABSOLUTE 0.1 10*3/uL High <0.1 [facility] Comment on above: Performed By: #### Mina [id number], [id number] ####Fan Installer: BIANCA NICHOLS ([id number])[address] Lymphocytes (Bld) [#/Vol] 2.3 10*3/uL Normal 1.0-4.3 [facility] Comment on above: Performed By: #### Mina [id number], [id number] ####Fan Installer: BIANCA NICHOLS ([id number])[facility])[address] [place] [address] Lymphocytes/100 WBC (Bld) 18.1 % Normal 15.0-45.0 [facility] Comment on above: Performed By: #### Mina VOGEL, [id number] ####Fan Installer: BIANCA NICHOLS ([id number])[facility])[address] [place] [address] MCH (RBC) [Entitic mass] 29.0 pg Normal 26.0-34.0 [facility] Comment on above: Performed By: #### Mina [id number], [id number] ####Fan Installer: BIANCA NICHOLS ([id number])[facility])[address] [place] [address] MCHC 32.9 % Normal 30.5-36.0 [facility] Comment on above: Performed By: #### Mina VOGEL, [id number] ####Fan Installer: BIANCA NICHOLS ([id number])[address] MCV (RBC) [Entitic vol] 88.3 fL Normal 77.0-99.0 [facility] Comment on above: Performed By: #### Mina VOGEL, [id number] ####Fan Installer: BIANCA NICHOLS ([id number])[facility])[address] [place] [address] Monocytes (Bld) [#/Vol] 1.0 10*3/uL High 0.0-0.9 [facility] Comment on above: Performed By: #### L [id number], [id number] ####Fan Installer: BIANCA NICHOLS ([id number])[facility])[address] [place] [address] Monocytes/100 WBC (Bld) 7.8 % Normal 5.0-13.0 [facility] Comment on above: Performed By: #### L [id number], [id number] ####Fan Installer: BIANCA NICHOLS ([id number])[facility] ([facility])[address] [place] [address] NEUTROPHILS ABSOLUTE 8.8 10*3/uL High 1.8-7.5 [facility] Comment on above: Performed By: #### Mina [id number], [id number] ####Fan Installer: BIANCA NICHOLS ([id number])[facility] ([facility])[address] [place] [address] Neutrophils/100 WBC (Bld) 70.7 % Normal 38.0-82.0 [facility] Comment on above: Performed By: #### Mina CARRILLO8, [id number] ####Fan Installer: BIANCA NICHOLS ([id number])[facility] ([facility])[address] [place] [address] NRBC 0.0 /100 WBCs Normal 0.0-2.0 [facility] Comment on above: Performed By: #### Mina [id number], [id number] ####Fan Installer: BIANCA NICHOLS ([id number])[facility] ([facility])[address] [place] [address] Platelet mean volume (Bld) [Entitic vol] 9.8 fL Normal 9.0-12.7 [facility] Comment on above: Performed By: #### Mina [id number], [id number] ####Fan Installer: BIANCA NICHOLS ([id number])[facility] ([facility])[address] [place] [address] Platelets (Bld) [#/Vol] 372 10*3/uL Normal 140-440 [facility] Comment on above: Performed By: #### L [id number], [id number] ####Fan Installer: BIANCA NICHOLS ([id number])[facility] ([facility])[address] [place] [address] RBC (Bld) [#/Vol] 4.03 10*6/uL Low 4.40-5.90 [facility] Comment on above: Performed By: #### L [id number], [id number] ####Fan Installer: BIANCA NICHOLS ([id number])[facility])[address] [place] [address] WBC (Bld) [#/Vol] 12.5 10*3/uL High 3.6-10.7 [facility] Comment on above: Performed By: #### L [id number], [id number] ####Fan Installer: BIANCA NICHOLS ([id number])[facility])[address] [place] [address] COMPREHENSIVE METABOLIC PANE Antonio 04-21-2025 Albumin [Mass/Vol] 2.3 g/dL Low 3.4-4.8 [facility] Comment on above: Performed By: #### L AB17 ####Fan Installer: BIANCA NICHOSL ([id number])[facility])[address] [place] [address] ALP [Catalytic activity/Vol] 116 U/L Normal 40-150 [facility] Comment on above: Performed By: #### L AB17 ####Fan Installer: BIANCA NICHOLS ([id number])[facility])[address] [place] [address] ALT [Catalytic activity/Vol] 6 U/L Normal <40 [facility] Comment on above: Performed By: #### L AB17 ####Fan Installer: BIANCA NICHOLS ([id number])[facility])[address] [place] [address] Anion gap [Moles/Vol] 10 mmol/L Normal 3-13 [facility] Comment on above: Performed By: #### L AB17 ####Fan Installer: BIANCA NICHOLS ([id number])[facility])[address] [place] [address] AST [Catalytic activity/Vol] 13 U/L Normal <34 [facility] Comment on above: Performed By: #### L AB17 ####Fan Installer: BIANCA NICHOLS ([id number])[facility])[address] [place] [address] Bilirubin [Mass/Vol] 0.5 mg/dL Normal <1.2 [facility] Comment on above: Performed By: #### L AB17 ####Fan Installer: BIANCA NICHOLS ([id number])[facility])[address] [place] [address] Calcium [Mass/Vol] 8.5 mg/dL Low 8.8-10.0 [facility] Comment on above: Performed By: #### L AB17 ####Fan Installer: BIANCA NICHOLS ([id number])[facility])[address] [place] [address] Chloride [Moles/Vol] 99 mmol/L Normal 98-107 [facility] Comment on above: Performed By: #### L AB17 ####Fan Installer: BIANCA NICHOLS ([id number])[facility])[address] [place] [address] CO2 [Moles/Vol] 21 mmol/L Low 23-31 [facility] Comment on above: Performed By: #### L AB17 ####Fan Installer: BIANCA NICHOLS ([id number])[facility] ([facility])[address] [place] [address] Creatinine [Mass/Vol] 0.65 mg/dL Low 0.72-1.25 [facility] Comment on above: Performed By: #### L AB17 ####Fan Installer: BIANCA NICHOLS ([id number])[facility])[address] [place] [address] GLOMERULAR FILTRATION RATE ML/MIN/1.73 SQ M.PREDICTED >90.0 Normal >60.0 [facility] Comment on above: Result Comment: Calc ulation based on the Chronic Kidney Disease Epidemiology Collaboration (CKD-EPI) equation refit without adjustment for race Performed By: #### L AB17 ####Fan Installer: BIANCA NICHOLS ([id number])[facility])[address] [place] [address] [place] Glucose [Mass/Vol] 202 mg/dL High 82-115 [facility] Comment on above: Performed By: #### L AB17 ####Fan Installer: BIANCA NICHOLS ([id number])[facility])[address] [place] [address] Potassium [Moles/Vol] 4.3 mmol/L Normal 3.5-5.1 [facility] Comment on above: Result Comment: [facility] potassium values may be up to 0.5 mmol/L lower than serum values. Performed By: #### L AB17 ####Fan Installer: BIANCA NICHOLS ([id number])[facility])[address] [place] [address] Protein [Mass/Vol] 7.6 g/dL Normal 6.4-8.3 [facility] Comment on above: Performed By: #### L AB17 ####Fan Installer: BIANCA NICHOLS ([id number])[facility])[address] [place] [address] Sodium [Moles/Vol] 130 mmol/L Low 136-145 [facility] Comment on above: Performed By: #### L AB17 ####Fan Installer: BIANCA NICHOLS ([id number])[facility])[address] [place] [address] Urea nitrogen [Mass/Vol] 10 mg/dL Normal 9-23 [facility] Comment on above: Performed By: #### L AB17 ####Fan Installer: BIANCA NICHOLS ([id number])[facility])[address] [place] [address] CULTURE ANAEROBICon 04-21-20 25 CULTURE ANAEROBIC ANAEROBIC CULTURE (A ) Reference ANAEROBIC GRAM NEGATIVE BACILLI, NOT B. FRAGILIS Moderate Anaerobic Gram-negative bacilli, not B. fragilis (A) [ S = SUSCEPTIBLE R = RESISTANT I = INTERMEDIATE S-DD = Susceptible-dose dependent NS = Non-susceptible NO = No Interpretation ] Normal [facility] Comment on above: Performed By: #### L [id number] #### Fan Installer: BIANCA NICHOLS ([id number]) [facility]) [address] [place] [address] CULTURE, AEROBIC BACTERIA WI TH GRAM STAINon [...] Non-susceptible NO = No Interpretation ] Normal [facility] Comment on above: Performed By: #### L [id number] ####Fan Installer: BIANCA NICHOLS ([id number])[facility])[address] [place] [address] Comprehensive metabolic 1998 panelon 04-21-2025 Albumin [Mass/Vol] 2.3 g/dL Low 3.4 - 4.8 g/dL [facility] ALP [Catalytic activity/Vol] 116 U/L 40 - 150 U/L [facility] ALT [Catalytic activity/Vol] 6 U/L NINF - 40 U/L [facility] Anion gap [Moles/Vol] 10 mmol/L 3 - 13 mmol/L [facility] AST [Catalytic activity/Vol] 13 U/L NINF - 34 U/L [facility] Bilirubin [Mass/Vol] 0.5 mg/dL NINF - 1.2 mg/dL [facility] Calcium [Mass/Vol] 8.5 mg/dL Low 8.8 - 10. 0 mg/dL [facility] Chloride [Moles/Vol] 99 mmol/L 98 - 10 7 mmol/L [facility] CO2 [Moles/Vol] 21 mmol/L Low 23 - 31 mmol/L [facility] Creatinine [Mass/Vol] 0.65 mg/dL Low 0.72 - 1.25 mg/dL [facility] GFR/1.73 sq M.predicted (S/P/Bld) [Vol rate/Area] - PINF [facility] Comment on above: Calculation based on the Chronic Kidney Disease Epidemiology Collaboration (CKD-EPI) equation refit without adjustment for race Glucose [Mass/Vol] 202 mg/dL High 82 - 115 mg/dL [facility] Interpretation and review of laboratory results Abnormal [facility] Potassium [Moles/Vol] 4.3 mmol/L 3.5 - 5.1 mmol/L [facility] Comment on above: Plasma potassium leonie ues may be up to 0.5 mmol/L lower than serum values. Protein [Mass/Vol] 7.6 g/dL 6.4 - 8.3 g/dL [facility] Sodium [Moles/Vol] 130 mmol/L Low 136 - 145 mmol/L [facility] Urea nitrogen [Mass/Vol] 10 mg/dL 9 - 23 mg/dL [facility] ED Nursing Noteon 04-21-2025 ED Nursing Note Placed new meplix pads on open wounds on sacrum. Pictures updated in pt's chart. Normal [facility] ED Provider Noteon ED Provider Note EMERGENCY DEPARTMENT ENCOUNTER Pt Name: Anmol [place] Birthdate 1960 Date of evaluation: 04/21/2025 ED Provider: Chele León MD CHIEF COMPLAINT Chief Complaint Patient presents with Wound Infection Per EMS pt was sent here from the [place] for wound infections. Pt has two wound [...] Family History[3] SOCIAL HISTORY Social History[4] SCREENINGS [place] Coma Scale Best Eye Response: Spontaneous Best [...] Eyes: Ex (more content not included)... Normal [facility] ESR (Bld) [Velocity]Ordered By: Grecia Hutton on 04-21-2025 Interpretation and review of laboratory results Abnormal [facility] HEMOGLOBIN A1Con 04-21-2025 Glucose [Mass/Vol] 180 mg/dL Normal [facility] Comment on above: Result Comment: RENOE R COMMENTS: If not done within the last 3 mos HbA1c values of 5.7-6.4 percent indicate an increased risk for developing diabetes mellitus. HbA1c values greater than or equal to 6.5 percent are diagnostic of diabetes mellitus. For diagnosis of diabetes in individuals without unequivocal hyperglycemia, results should be confirmed by repeat testing. Performed By: #### L AB90 ####Fan Installer: BIANCA NICHOLS ([id number])[address] HEMOGLOBIN A1C 7.9 %HbA1C High <5.7 [facility] Comment on above: Result Comment: Norm al less than 5.7% Prediabetes 5.7% to 6.4% Diabetes 6.5% or higher --HgbA1C levels may not be accurate in patients who have renal disease, received recent blood transfusions, are anemic, or who have dyshemoglobinemia. Performed By: #### L AB90 ####Fan Installer: BIANCA NICHOLS ([id number])[address] LACTIC ACID WITH REFLEXon Lactate [Moles/Vol] 1.1 mmol/L Normal 0.5-2.2 [facility] Comment on above: Performed By: #### L [id number] ####Fan Installer: BIANCA NICHOLS ([id number])[address] Laboratory - Chemistry and C hemistry - challengeon 04-21-2025 Lactate [Moles/Vol] 1.1 mmol/L 0.5 - 2. 2 mmol/L [facility] Laboratory - Hematology and Cell countsOrdered By: Grecia Hutton on 04-21-2025 ESR (Bld) [Velocity] 78 mm/h High [facility] No Panel Informationon 04-21 Interpretation and review of laboratory results Normal [facility] Progress Noteon 04-21-2025 Progress Note Patient: Anmol [...] ago. States that he is at a group home and they were concerned that his [...] EMS pt was sent here from the [place] for wound infections. Pt has two wound [...] Family History[3] SOCIAL HISTORY Social History[4] SCREENINGS [place] Coma Scale Best Eye Response: Spontaneous Best Verbal Response: Oriented Best Motor Response: Follows commands [place] (more content not included)... Normal [facility] SEDIMENTATION RATE, AUTOMATE Don 04-21-2025 SEDIMENTATION RATE, ERYTHROCYTE 78 mm/hr High 0-10 [facility] Comment on above: Performed By: #### L [id number], [id number] ####Fan Installer: BIANCA NICHOLS ([id number])[address] Urine Cultureon 04-20-2025 [facility] Providencia stuartii [place] Count >100,000 Providencia stuartii: REACTION Ampicillin Islt HARINDER >=32 Ampicillin+Sulbac Islt HARINDER R Cefepime Islt HARINDER <=0.12 S cefTRIAXone Islt HARINDER <=0.25 S Ciprofloxacin Islt HARINDER >=4 R Gentamicin Islt HARINDER R levoFLOXacin Islt HARINDER >=8 R Meropenem Islt HARINDER 1 S Nitrofurantoin Islt HARINDER 128 R Pip+Tazo Islt HARINDER <=4 S TMP SMX Islt HARINDER >=320 R Normal [facility] Comment on above: Performed By: #### L 400.0001, M100.2200 #### [facility] [place], [address] Gram Stainon 04-18-2025 GS L BUTTOCKS Gram Stain 4+ Gram positive cocci 1+ Gram negative rods 2+ White Blood Cells Normal [facility] Comment on above: Performed By: #### L 100.0500, L500.4050, L501.6710, L101.9900 #### [facility] [address] [place], [address] Urinalysis, Completeon 04-18 AMORPHOUS 4+ Normal [facility] Comment on above: Order Comment: SRIKANTH TER SPECIMEN Performed By: #### L 400.0001, M100.2200 #### [facility] [address] [place], [address] WBC 0-5 SEEN Normal 0-5 [facility] Comment on above: Order Comment: SRIKANTH TER SPECIMEN Performed By: #### L 400.0001, M1.0 #### [facility] [address] [place], [address] TRIPLE PHOS 4+ /hpf Normal [facility] Comment on above: Order Comment: SRIKANTH TER SPECIMEN Performed By: #### L 400.0001, M1.0 #### [facility] [address] [place], [address] BACTERIA 0 SEEN Normal None Seen [facility] Comment on above: Order Comment: SRIKANTH TER SPECIMEN Performed By: #### L 400.0001, M100.0 #### [facility] [address] [place], [address] EPI,SQUAMOUS 0 SEEN Normal 0-5 [facility] Comment on above: Order Comment: SRIKANTH TER SPECIMEN Performed By: #### L 400.0001, M1.2199 #### [facility] [address] [place], [address] Mucus Ql (Urine sed) 0 SEEN Normal [facility] Comment on above: Order Comment: SRIKANTH TER SPECIMEN Performed By: #### L 400.0001, M1.2200 #### [facility] [address] [place], [address] RBC 0 SEEN Normal 0-5 [facility] Comment on above: Order Comment: SRIKANTH PIKE SPECIMEN Performed By: #### L 400.0001, M100.2200 #### [facility] [address] [place], [address] CNPNon 03-24-2025 CNPN Telephone (UROLAE) GIVEN,ANMOL ARAUJO ([id number]) 1960 M Date Time Provider Department 03/24/25 [...] Comments as of 02/17/2025: Verified medications with [facility] 02/17/2025 Problem List As Of Date 03/24/2025 Noted Resolved NO SHOW [179201] 08/31/2013 05/29/2020 Perineal abscess [L02.215] 06/13/2019 05/29/2020 [...] EVALon 025 ANES POSTPROC EVAL HNO ID: [id number] Author: AUDREY SIMMONS MD Service: Anesthesiology Author Type: Anesthesiologist Type: Anesthesia Postprocedure Evaluation Filed: 03/20/2025 12:16 Note Text: POST ANESTHESIA EVALUATION NOTE : 1960 Procedure Summary Date: 03/20/25 Room / Location: [place] OR 18 / [place] OR Anesthesia Start: [...] March 20, 2025 TIME: 12:16 PM CSN: [id number] Normal [facility] ANES PRE-OPon 03-20-2025 ANES PRE-OP HNO ID: [id number] Author: AUDREY SIMMONS MD Service: Anesthesiology Author [...] Height as of 02/17/25: 180.3 cm (5' 11). Weight as of 02/22/25: 96.9 kg (213 [...] Center HISTORY PHYSICALon HISTORY PHYSICAL HNO ID: [id number] Author: ANMOL HERBERT MD Service: Urology Author [...] ankle 11/26/2021 Coronary artery disease Hx:Afib Diabetes ([facility]) Elevated CA 19-9 level 08/21/2021 Epidural abscess (HCC) 01/04/2022 MRSA bacteremia 11/27/2021 Neuropathy Nicotine use disorder, F17.2 06/14/2019 Pilonidal cyst with abscess 12/31/2020 Pilonidal cyst without abscess 05/29/2020 Pyelonephritis 11/27/2021 Sciatica Severe protein-calorie malnutrition ([facility]) 09/04/2021 Type 2 diabetes mellitus with hyperglycemia, with long-term current use of insulin ([facility]) 01/18/2021 Ureteral stone 11/25/2021 UTI (urinary tract infection) 11/26/2021 Vertebral osteomyelitis ([facility]) 01/04/2022 PAST SURGICAL HISTORY: PAST SURGICAL HISTORY [...] OPERATIVE NOon 03-20-2025 OPERATIVE NO HNO ID: [id number] Author: ANMOL HERBERT MD Service: Urology Author Type: Physician Type: Operative Report Filed: 03/21/2025 07:31 Note Text: OPERATIVE/PROCEDURE REPORT LOG ID: [id number] SURGERY/PROCEDURE DATE: 03/20/2025 INCISION/PROCEDURE START TIME: 10:34 AM INCISION CLOSE/PROCEDURE END TIME: 11:03 AM SURGEON(S)/PROCEDURAL IST(S) AND FITTER UP(S): Surgeons and Role: * Anmol Herbert MD - Primary * Jose Blair MD - Resident - Assisting No Additional Staff SURGERY/PROCEDURE(S): CYSTOSCOPY, RETROPYELOGRAM: 67154 (CPT?) CYSTOURETHROSCOPY W/ REMOVE URETERAL STENT: 22284 (CPT?) INSERTION STENT DOUBLE J: 70756 (CPT?) ANESTHESIA: General SURGERY/PROCEDURE DETAILS: Anmol Reynolds [...] the beginning of the procedure. Chronic 20 Venezuelan catheter was removed. A 21F cystourethroscope was [...] all mucus and cystoscope was removed. 20 Venezuelan catheter with 10 cc in balloon was replaced. Patient awoken from anesthesia having tolerated the procedure well. Anmol Gayle [place] Was transferred to recovery room. PRE-OP/PRE-PROCEDURE DIAGNOSIS: Pre-existing ureteral stents bilateral POST-OP/POST-PROCEDUR E DIAGNOSIS: Same ESTIMATED BLOOD LOSS: 0 ml SPECIMENS: None IMPLANTABLE DEVICES: NONE DRAINS: 20 Venezuelan Santana catheter with 10 cc in balloon COMPLICATIONS: None PARTICIPATION IN SURGERY/PROCEDURE: Resident performed the procedure, under direct supervision and the remainder of the procedure was performed by the primary surgeon/proceduralist with assistance. Jose Blair MD PGY1 Urology 11:20 AM 03/20/25 I was present and participated during the entire procedure, including non-thomas portions. Renal US in 4 weeks. See me after. Anmol Herbert MD March 21, 2025 7:31 AM Normal [facility] XR RETROGRADE PYELOGRAM BILo n 03-20-2025 XR RETROGRADE PYELOGRAM KENROY * * *Final Report* * * DATE OF EXAM: Mar 20 2025 5:16PM [facility] 3021 - XR RETROGRADE PYELOGRAM KENROY / [...] of ureteral stents and bilateral retrograde pyelograms. Dining Chair Seat Cushion Trimmer: CECILIA Transcribe Date/Time: Mar 21 2025 8:21A Dictated by : KATHRIN MCKNIGHT MD This examination was interpreted and the report reviewed and electronically signed by: KATHRIN MCKNIGHT MD on Mar 21 2025 8:23AM EST [id number] Normal [facility] NURSING PROGon 03-17-2025 NURSING PROG HNO ID: [id number] Author: VCITORIANO GRANT RN Service: ? Author Type: Registered Nurse Type: Nursing Progress Note Filed: 03/17/2025 13:04 Note Text: Spoke w/ Comfort,surgical schedule @ 's office to verify scheduled time of Sx for Thursday;AND was directed that OR scheduled for 10:00;AND Eliquis does Not need to be held for procedure. Normal [facility] 36on 03-15-2025 36 Spoke to nursing facility who states Pt is going to proceed with surgery at [facility]. Normal [facility] 36 Left message for Pts nurse to call me back. [facility] CNOVon 03-14-2025 CNOV Office Visit (PLWDMR ) GIVEN,ANMOL ARAUJO ([id number]) 1960 M Date Time Provider Department 03/14/25 [...] with multiple staff Home Care Company/Nursing Facility: [place] [facility] Consent captured for debridement per (Provider) and good until Special Instructions (for example, patient stands at the bedside for exam/dressing): bed Anticoagulant Therapy: Eliquis Living Situation (ie... Apartment, house, [facility]: facility Who [...] BY PROVIDER: Anesthetic Used: N/A applied per data governance consultant # 1 AND 2 Other procedure: Specimen [...] order date DME: [employer] , PH: [phone] SPECIAL NEEDS: EFax orders to [place] [facility] [phone] Emotional support N/A OR set-up N/A Orthopaedic Doctor N/A Incontinence needs N/A DISCHARGED in stable [...] be drawn PARI and results faxed to [facility] [phone] Stop smoking EDUCATION: The patient/family was instructed [...] been diagnosed with (more content not included)... [facility] 36on 03-13-2025 36 Still need disc with images. Will need to review with Dr. Grimm. [facility] 36 Is it OK to get Pt scheduled for surgery? Please advise. [facility] 37on 03-07-2025 37 Need images from [facility] on disc brought to office for review in order for patient to have ureteral stent treatment at [facility]. Patient prefers [facility]. CT abdomen/pelvis 02/16/25 XR abdomen 02/16/25 and 02/17/25 Planning for ESWL vs laser litho w stent exchange. [facility] Office Visiton 03-07-2025 Follow-up visit [id number] Anmol Reynolds 1960 M Date Provider Department Center 03/07/2025 24087-HOOOZDOYOANA PALMA [facility] URO None No family history on file Level of Service:92006 [place] OFFICE/OUTPATIENT ESTABLISHED MOD MDM 30 MIN Reason for Visit and Comments: Nephrolithiasis [933449] [facility] Progress Noteon 03-07-2025 Progress Note Yoana Solitario APRN - [employer] TECHNICIAN 03/07/2025 9:15 AM Urology Office Visit [facility] UROLOGY [address] [facility] [facility] [id number] PATIENT NAME: Anmol Franco Gail DATE OF : 1960 REFERRING PROVIDER: No ref. provider found PCP: Tab Dupont TODAY'S DATE: 03/07/2025 Visit type: Established patient HPI: Anmol is a 64 y.o. male who presents today with chief complaints of: Chief Complaint Patient presents with Nephrolithiasis 04/14/2024 underwent Cystoscopy pyelogram bilateral stent change Santana insertion with Dr Grimm for fungus ball/stone in bladder 05/05/2024 underwent Cystoscopy pyelogram litholapaxy of large bladder stone left ureteroscopy with replacement of left stent, right stent change with Dr Grimm Did not have any follow up for stent removal/exchange. Presented to OSH ER 02/16/25 unresponsive. Septic- culture w gram negative rods. Treated. Follow up outpatient with [facility] urology Patient is scheduled for surgery w Dr Maria on 03/20/25 however he prefers treatment at [facility] Will need images for surgery [...] for: TESTOSTERONE PSA: No results found for: PSA, PSATOTALIN Hemoglobin A1C: Lab Results Component Value [...] 8. Details above. 9. Follow-up as indicated. Dining Chair Seat Cushion Trimmer: CECILIA Transcribe Date/Time: Feb 16 2025 10:02P Dictated by : CORBIN PERRY MD This examination was interpreted and the report reviewed and electronically signed by: CORBIN PERRY MD on Feb 16 2025 10:34PM EST Narrative * * *Final Report* * * DATE OF EXAM: Feb 16 2025 8:33PM [facility] 0530 - CT ABD/PEL W [...] and sagittal (more content not included)... Normal [facility] Anion gap in Serum or Plasma Ordered By: Tab Dupont on 03-01-2025 Anion gap [Moles/Vol] 11 mmol/L 02-16 [facility] BUN/creatinine ratioOrdered By: Tab Dupont on 03-01-2025 Urea nitrogen/Creatinine [Mass ratio] 15.3 mg/mg 07-24 [facility] Basic Metabolic Profile (BMP )on 03-01-2025 BUN/CRE 15.3 RATIO Normal 07-24 [facility] Comment on above: Order Comment: 412-2 Performed By: #### L 500.2500, L100.0500 #### [facility] [address] [place], [address] Calcium [Mass/Vol] 8.5 mg/dL Normal 7.6-11.0 [facility] Comment on above: Order Comment: 412-2 Performed By: #### L 500.2500, L100.0500 #### [facility] [address] [place], [address] Chloride [Moles/Vol] 104 mmol/L Normal 98-108 [facility] Comment on above: Order Comment: 412-2 Performed By: #### L 500.2500, L100.0500 #### [facility] [address] [place], [address] CO2 [Moles/Vol] 21.8 mmol/L Normal 21.0-32.0 [facility] Comment on above: Order Comment: 412-2 Performed By: #### L 500.2500, L100.0500 #### [facility] [address] [place], [address] Creatinine [Mass/Vol] 0.59 mg/dL Low 0.70-1.20 [facility] Comment on above: Order Comment: 412-2 Performed By: #### L 500.2500, L100.0500 #### [facility] [address] [place], [address] GAP 11 Normal 5-15 [facility] Comment on above: Order Comment: 412-2 Performed By: #### L 500.2500, L100.0500 #### [facility] [address] [place], [address] GFR/1.73 sq M.predicted among non-blacks MDRD (S/P/Bld) [Vol rate/Area] 109 mL/min/{1.73_m2} Normal >60 [facility] Comment on above: Order Comment: 412-2 Result Comment: mL/m in/1.73m2 CKD-EPI Creatinine Equation (2020) Performed By: #### L 500.2500, L100.0500 #### [facility] [address] [place], [address] Glucose [Mass/Vol] 146 mg/dL High 70-99 [facility] Comment on above: Order Comment: 412-2 Performed By: #### L 500.2500, L100.0500 #### [facility] [address] [place], [address] Potassium [Moles/Vol] 4.0 mmol/L Normal 3.3-5.1 [facility] Comment on above: Order Comment: 412-2 Performed By: #### L 500.2500, L100.0500 #### [facility] [address] [place], [address] Sodium [Moles/Vol] 136 mmol/L Normal 133-145 [facility] Comment on above: Order Comment: 412-2 Performed By: #### L 500.2500, L100.0500 #### [facility] [address] [place], [address] Urea nitrogen [Mass/Vol] 9 mg/dL Normal 4-19 [facility] Comment on above: Order Comment: 412-2 Performed By: #### L 500.2500, L100.0500 #### [facility] [address] [place], [address] CBC-Complete Blood Cnt No Di ffon 03-01-2025 Erythrocyte distribution width (RBC) [Ratio] 15.4 % High 11.6-14.6 [facility] Comment on above: Order Comment: 412-2 Performed By: #### L 500.2500, L100.0500 #### [facility] [address] [place], [address] Hematocrit (Bld) [Volume fraction] 41.2 % Normal 40-54 [facility] Comment on above: Order Comment: 412-2 Performed By: #### L 500.2500, L100.0500 #### [facility] [address] [place], [address] Hemoglobin (Bld) [Mass/Vol] 12.9 g/dL Low 13.0-16.5 [facility] Comment on above: Order Comment: 412-2 Performed By: #### L 500.2500, L100.0500 #### [facility] [address] [place], [address] MCH (RBC) [Entitic mass] 29.5 pg Normal 27.0-32.0 [facility] Comment on above: Order Comment: 412-2 Performed By: #### L 500.2500, L100.0500 #### [facility] [address] [place], [address] MCHC (RBC) [Mass/Vol] 31.3 g/dL Low 32-36 [facility] Comment on above: Order Comment: 412-2 Performed By: #### L 500.2500, L100.0500 #### [facility] [address] [place], [address] MCV (RBC) [Entitic vol] 94.3 fL High 80-94 [facility] Comment on above: Order Comment: 412-2 Performed By: #### L 500.2500, L100.0500 #### [facility] [address] [place], [address] Platelet mean volume (Bld) [Entitic vol] 11.6 fL Normal 6.2-12.0 [facility] Comment on above: Order Comment: 412-2 Performed By: #### L 500.2500, L100.0500 #### [facility] [address] [place], [address] Platelets (Bld) [#/Vol] 345 10*3/uL Normal 150-450 [facility] Comment on above: Order Comment: 412-2 Performed By: #### L 500.2500, L100.0500 #### [facility] [address] [place], [address] RBC (Bld) [#/Vol] 4.37 10*6/uL Low 4.6-6.2 [facility] Comment on above: Order Comment: 412-2 Performed By: #### L 500.2500, L100.0500 #### [facility] [address] [place], [address] RDW SD 52.4 fl High 35.1-43.9 [facility] Comment on above: Order Comment: 412-2 Performed By: #### L 500.2500, L100.0500 #### [facility] [address] [place], [address] WBC (Bld) [#/Vol] 7.6 10*3/uL Normal 4.4-11.0 [facility] Comment on above: Order Comment: 412-2 Performed By: #### L 500.2500, L100.0500 #### [facility] [address] [place], [address] Carbon dioxide, total [Moles /volume] in Central venous bloodOrdered By: Tab Dupont on 03-01-2025 CO2 [Moles/Vol] 21.8 mmol/L 21.0-32.0 [facility] Chloride assayOrdered By: Vinh Lehman on 03-01-2025 Chloride [Moles/Vol] 104 mmol/L 98-108 [facility] Erythrocyte distribution wid th ratioOrdered By: Tab Dupont on 03-01-2025 Erythrocyte distribution width (RBC) [Ratio] 15.4 % High 11.6-14.6 [facility] Erythrocyte distribution wid th standard deviationOrdered By: Tab Dupont on 03-01-2025 Erythrocyte distribution width (RBC) [Ratio] 52.4 fl High 35.1-43.9 [facility] Glomerular filtration rate ( GFR) estimation/1.73 sq m using serum, plasma, or whole bOrdered By: Tab Dupont on 03-01-2025 GFR/1.73 sq M.predicted among non-blacks MDRD (S/P/Bld) [Vol rate/Area] 109 mL/min/{1.73_m2} >60 [facility] Comment on above: mL/min/1.73m2 CKD-EP I Creatinine Equation (2020) Hematocrit Auto (Bld) [Volum e fraction]Ordered By: Tab Dupont on 03-01-2025 Hematocrit (Bld) [Volume fraction] 41.2 % 40-54 [facility] Hemoglobin measurementOrdere d By: Tab Dupont on 03-01-2025 Hemoglobin (Bld) [Mass/Vol] 12.9 g/dL Low 13.0-16.5 [facility] MCV (mean corpuscular volume ) determinationOrdered By: Tab Dupont on 03-01-2025 MCV (RBC) [Entitic vol] 94.3 fL High 80-94 [facility] Mean corpuscular hemoglobin (MCH) determinationOrdered By: Tab Dupont on 03-01-2025 MCH (RBC) [Entitic mass] 29.5 pg 27.0-32.0 [facility] Mean corpuscular hemoglobin concentration (MCHC) determinationOrdered By: Tab Dupont on 03-01-2025 MCHC (RBC) [Mass/Vol] 31.3 g/dL Low 32-36 [facility] Mean platelet volume determi nationOrdered By: Tab Dupont on 03-01-2025 Platelet mean volume (Bld) [Entitic vol] 11.6 fL 6.2-12.0 [facility] Platelet countOrdered By: Vinh Lehman on 03-01-2025 Platelets (Bld) [#/Vol] 345 10*3/uL 150-450 [facility] Potassium measurement (mass/ volume)Ordered By: Tab Dupont on 03-01-2025 Potassium (Unsp spec) [Mass/Vol] 4.0 mmol/L 3.3-5.1 [facility] RBC Auto (Bld) [#/Vol]Ordere d By: Tab Dupont on 03-01-2025 RBC (Bld) [#/Vol] 4.37 10*6/uL Low 4.6-6.2 [facility] Serum creatinine measurement (mass/volume)Ordered By: Tab Dupont on 03-01-2025 Creatinine [Mass/Vol] 0.59 mg/dL Low 0.70-1.20 [facility] Serum glucose measurement (m ass/volume)Ordered By: Tab Dupont on 03-01-2025 Glucose [Mass/Vol] 146 mg/dL High 70-99 [facility] Serum or plasma calcium randall urement (mass/volume)Ordered By: Tab Dupont on 03-01-2025 Calcium [Mass/Vol] 8.5 mg/dL 7.6-11.0 [facility] Serum or plasma urea nitroge n measurement (mass/volume)Ordered By: Tab Dupont on 03-01-2025 Urea nitrogen [Mass/Vol] 9 mg/dL 4-19 [facility] Sodium levelOrdered By: Omar Dupont on 03-01-2025 Sodium [Moles/Vol] 136 mmol/L 133-145 [facility] White blood cell (WBC) count Ordered By: Tab Dupont on 03-01-2025 WBC (Bld) [#/Vol] 7.6 10*3/uL 4.4-11.0 [facility] CBC panel Auto (Bld)on 02-22 Erythrocyte distribution width (RBC) [Ratio] 14.8 % Normal 11.5-15.0 [facility] Comment on above: Order Comment: Speci men Type: BLOOD SPECIMENOrdering Facility: [facility] Address: [address] [place] [address] Performed By: #### 5 8410-2 ####[facility]ORATORYCLIA [id number] [address] [facility] Hematocrit (Bld) [Volume fraction] 33.6 % Low 39.0-51.0 [facility] Comment on above: Order Comment: Speci men Type: BLOOD SPECIMENOrdering Facility: [facility] Address: [address] [place] [address] Performed By: #### 5 8410-2 ####[facility]ORATORYCLIA [id number] [address] [facility] Hemoglobin (Bld) [Mass/Vol] 10.6 g/dL Low 13.0-17.0 [facility] Comment on above: Order Comment: Speci men Type: BLOOD SPECIMENOrdering Facility: [facility] Address: [address] [place] [address] Performed By: #### 5 8410-2 ####[facility]ORATORYCLIA [id number] [address] STATES OF [facility] MCH (RBC) [Entitic mass] 30.0 pg Normal 26.0-34.0 [facility] Comment on above: Order Comment: Speci men Type: BLOOD SPECIMENOrdering Facility: [facility] Address: [address] [place] [address] Performed By: #### 5 8410-2 ####[facility]ATORYCLIA [id number] [address] [place] MCHC (RBC) [Mass/Vol] 31.5 g/dL Normal 30.5-36.0 [facility] Comment on above: Order Comment: Speci men Type: BLOOD SPECIMENOrdering Facility: [facility] Address: [address] [place] [address] Performed By: #### 5 8410-2 ####[facility]ORATORYCLIA [id number] [address] MCV (RBC) [Entitic vol] 95.2 fL Normal 80.0-100.0 [facility] Comment on above: Order Comment: Speci men Type: BLOOD SPECIMENOrdering Facility: [facility] Address: [address] [place] [address] Performed By: #### 5 8410-2 ####[facility]ATORYCLIA [id number] [address] Nucleated RBC (Bld) [#/Vol] 10*3/uL Normal <0.01 [facility] Comment on above: Order Comment: Speci men Type: BLOOD SPECIMENOrdering Facility: [facility] Address: [address] [place] [address] Performed By: #### 5 8410-2 ####[facility]ATORYCLIA [id number] [address] Platelet mean volume (Bld) [Entitic vol] 11.5 fL Normal 9.0-12.7 [facility] Comment on above: Order Comment: Speci men Type: BLOOD SPECIMENOrdering Facility: [facility] Address: [address] [place] [address] Performed By: #### 5 8410-2 ####[facility]ORYCLIA [id number] [address] Platelets (Bld) [#/Vol] 153 10*3/uL Normal 150-400 [facility] Comment on above: Order Comment: Speci men Type: BLOOD SPECIMENOrdering Facility: [facility] Address: [address] [place] [address] Performed By: #### 5 8410-2 ####[facility]ORYCLIA [id number] [address] [place] RBC (Bld) [#/Vol] 3.53 10*6/uL Low 4.20-6.00 [facility] Comment on above: Order Comment: Speci men Type: BLOOD SPECIMENOrdering Facility: [facility] Address: [address] [place], [place] [address] Performed By: #### 5 8410-2 ####[facility]ATORYCLIA [id number] [address] OF [facility] WBC (Bld) [#/Vol] 9.23 10*3/uL Normal 3.70-11.00 [facility] Comment on above: Order Comment: Speci men Type: BLOOD SPECIMENOrdering Facility: [facility] Address: [address] [place] [address] Performed By: #### 5 8410-2 ####[facility]ORATORYCLIA [id number] [address] CNDSon 02-22-2025 CNDS HNO ID: [id number] Author: CHUY PADILLA DO Service: Hospital Medicine [...] 2024. The patient initially presented to the [facility] ED on February 16, 2025 after being found unresponsive at his SNF and was unable to protect his airway. Patient was intubated, started on Levophed and admitted to MICU for acute hypoxemic respiratory failure. CT showed hydronephrosis and culture was remarkable for gram-negative rods. patient was started on meropenem per Infectious disease recommendations. urology was consulted and recommended to follow-up with [facility] urology. patient was extubated on 02/17, [...] No pending results Discharge Disposition Discharge Disposition: [facility] - Less than 30 Days Activity [...] Call to schedule follow-ups renal stones With: [facility] Urology When: In: Comment - PARI Patient/Parents to call for appointment?: Yes Follow-Up Appointment Follow-up hospitalization With: Your primary care provider When: In 1 week Patient/Parents to call for appointment?: Yes Follow-up Appointment Follow-up bacteremia When: In 2 weeks Patient/Parents to call for appointment?: Yes Gayle Scott MD [phone] [address] [facility] [address] [facility] [address] PCP Requested Referral Additional Provider to Provider Information: Treatment Team: Attending Provider: Chuy Padilla DO Consulting: Charlie Williamson MD Primary Service: [facility] Problems Diagnosis POA Septic shock (HCC) [...] Center Comment on above: Order Comment: Speci [facility] Type: BLOOD SPECIMENOrdering Facility: [facility] Address: [address] [place] [address] Performed By: #### 2 4323-8 ####[facility]ORATORYCLIA [id number] [address] STATES [facility] ALP [Catalytic activity/Vol] 89 U/L Normal 38-113 [facility] Comment on above: Order Comment: Speci men Type: BLOOD SPECIMENOrdering Facility: [facility] Address: [address] [place] [address] Performed By: #### 2 4323-8 ####[facility]ORATORYCLIA [id number] [address] STATES [facility] ALT With P-5'-P [Catalytic activity/Vol] 12 U/L Normal 10-54 [facility] Comment on above: Order Comment: Speci men Type: BLOOD SPECIMENOrdering Facility: [facility] Address: [address] [place] [address] Performed By: #### 2 4323-8 ####[facility]ATORYCLIA [id number] [place] [address] [place] Anion gap [Moles/Vol] 8 mmol/L Normal 8-15 [facility] Comment on above: Order Comment: Speci men Type: BLOOD SPECIMENOrdering Facility: [facility] Address: [address] [place] [address] Performed By: #### 2 4323-8 ####[facility]ORATORYCLIA [id number] [place] [address] [place] AST With P-5'-P [Catalytic activity/Vol] 13 U/L Low 14-40 [facility] Comment on above: Order Comment: Speci men Type: BLOOD SPECIMENOrdering Facility: [facility] Address: [address] [place] [address] Performed By: #### 2 4323-8 ####[facility]ATORYCLIA [id number] [place] [address] [place] Bilirubin [Mass/Vol] 0.4 mg/dL Normal 0.2-1.3 [facility] Comment on above: Order Comment: Speci men Type: BLOOD SPECIMENOrdering Facility: [facility] Address: [address] [place] [address] Performed By: #### 2 4323-8 ####[facility]ORYCLIA [id number] [place] [address] [place] Calcium [Mass/Vol] 7.7 mg/dL Low 8.5-10.2 [facility] Comment on above: Order Comment: Speci men Type: BLOOD SPECIMENOrdering Facility: [facility] Address: [address] [place] [address] Performed By: #### 2 4323-8 ####[facility]ORATORYCLIA [id number] [place] [address] [place] Chloride [Moles/Vol] 108 mmol/L High 98-107 [facility] Comment on above: Order Comment: Speci men Type: BLOOD SPECIMENOrdering Facility: [facility] Address: [address] [place] [address] Performed By: #### 2 4323-8 ####[facility] [id number] [place] [address] [place] CO2 [Moles/Vol] 23 mmol/L Normal 22-30 [facility] Comment on above: Order Comment: Speci men Type: BLOOD SPECIMENOrdering Facility: [facility] Address: [address] [place] [address] Performed By: #### 2 4323-8 ####[facility] [id number] [place] [address] [place] Creatinine [Mass/Vol] 0.60 mg/dL Low 0.73-1.22 [facility] Comment on above: Order Comment: Speci men Type: BLOOD SPECIMENOrdering Facility: [facility] Address: [address] [place] [address] Performed By: #### 2 4323-8 ####[facility]ITALCLIA [id number] [address] Creatinine and Glomerular filtration rate.predicted panel (S/P/Bld) 108 mL/min/1.73m??? Normal >=60 [facility] Comment on above: Order Comment: Speci men Type: BLOOD SPECIMENOrdering Facility: [facility] Address: [address] [place] [address] Result Comment: Leena mated Glomerular Filtration Rate [...] actual GFR. Performed By: #### 2 4323-8 ####[facility]ATORYCLIA [id number] [address] [place] Glucose [Mass/Vol] 144 mg/dL High 74-99 [facility] Comment on above: Order Comment: Speci men Type: BLOOD SPECIMENOrdering Facility: [facility] Address: [address] [place], [place] [id number] Result Comment: The [place] Diabetes Association (ADA) provides guidance for cutoff [...] Standards of Medical Care in Diabetes 2016, [place] [employer]. Diabetes Care. 2016.39(Suppl 1). Performed By: #### 2 4323-8 ####[facility]ORATORYCLIA [id number] [place] [address] [place] Potassium [Moles/Vol] 3.9 mmol/L Normal 3.7-5.1 [facility] Comment on above: Order Comment: Jg courtney Type: BLOOD SPECIMENOrdering Facility: [facility] Address: [address] [place] [address] Performed By: #### 2 4323-8 ####[facility]ORATORYCLIA [id number] [place] [address] [place] Protein [Mass/Vol] 5.7 g/dL Low 6.3-8.0 [facility] Comment on above: Order Comment: Speci men Type: BLOOD SPECIMENOrdering Facility: [facility] Address: [address] [place] [id number] Performed By: #### 2 4323-8 ####[facility]ORATORYCLIA [id number] [place] [address] [place] Sodium [Moles/Vol] 139 mmol/L Normal 136-144 [facility] Comment on above: Order Comment: Speci men Type: BLOOD SPECIMENOrdering Facility: [facility] Address: [address] [place] [address] Performed By: #### 2 4323-8 ####[facility]ORATORYCLIA [id number] [place] [address] [place] Urea nitrogen [Mass/Vol] 14 mg/dL Normal 9-24 [facility] Comment on above: Order Comment: Speci men Type: BLOOD SPECIMENOrdering Facility: [facility] Address: [address] [place] [id number] Performed By: #### 2 4323-8 ####[facility] LABORATORYCLIA [id number] [place] [address] [place] NURSING PROGon 02-22-2025 NURSING PROG HNO ID: [id number] Author: NAHUN GUNDERSON RN Service: Nursing Author Type: Registered Nurse Type: Nursing Progress Note Filed: 02/22/2025 19:58 Note Text: Call to ALEXANDRA Adams at [facility] for report. Follow up appts AND new medications reviewed. Normal [facility] THERAPY NTon 02-22-2025 THERAPY NT HNO ID: [id number] Author: VICTORIANO BACA OTR/L Service: Occupational Therapy Author Type: Occupational Therapist Type: Therapy (PT/OT/Speech/Resp) Filed: 02/22/2025 15:00 Note Text: Occupational Therapy Evaluation Summary SERVICE DATE: 02/22/2025 SERVICE TIME: 1345 to 1403 ROOM: [place] [address] OT 6 Clicks Score: 16 DISCHARGE RECOMMENDATIONS [...] was managed in ICU; transferred to [facility] 02/20 Relevant Past Medical History: back injury and surgery in the past--then found to have epidural abscess--had another back sx in 2021--harware needed removed in January 2022 and then was paraplegic; has had issues with UTIs HOME LIVING Patient Lives With: Facility Care ([facility]) Assistance Available: 24-Hour Tub/Shower Type: sponge [...] Time (minutes): 18 $ Evaluation - Low (81325) Billed Units: 1 unit TRAINING AND EDUCATION [...] [facility] THERAPY NT HNO ID: [id number] Author: FABRICIO GREENBERG, PT Service: Physical Therapy Author Type: Physical Therapist Type: Therapy (PT/OT/Speech/Resp) Filed: 02/22/2025 11:54 Note Text: Physical Therapy Evaluation Summary SERVICE DATE: 02/22/2025 SERVICE TIME: 1120 to 1135 ROOM: [place] [address] PT 6 Clicks Score: 7 DISCHARGE RECOMMENDATIONS ECF ASSESSMENT Response to Therapy Interventions: Multiple Ongoing Medical Issues pt tolerated bilat LE PROM--no c/o pain; able to complete roll with assist from PT with drawhseet PRECAUTIONS Fall Risk, Lines/Tubes/Drains CURRENT HOSPITAL COURSE presented to ED after being found unresponsive--septic shock was managed in ICU; transferred to [facility] 02/20 Relevant Past Medical History: back injury and surgery in the past--then found to have epidural abscess--had another back sx in 2021--harware needed removed in January 2022 and then was paraplegic; has had issues with UTIs HOME LIVING Patient Lives With: Facility Care ([facility]) Assistance Available: 24-Hour Equipment Owned: Wheelchair- [...] Skilled Treatment Time (minutes): 15 $ Evaluation-Moderate (03393) Billed Units: 1 unit Completed PROM bilat [...] SIGNATURE: Fabricio Greenberg, PT PATIENT NAME: Anmol Reynolds DATE: February 22, 2025 TIME: 11:53 AM Normal [facility] CBC panel Auto (Bld)on 02-21 Erythrocyte distribution width (RBC) [Ratio] 14.9 % Normal 11.5-15.0 [facility] Comment on above: Order Comment: Speci men Type: BLOOD SPECIMENOrdering Facility: [facility] Address: [address] [place] [address] Performed By: #### 5 8410-2 ####[facility] LABORATORYCLIA [id number] [address] OF [facility] Hematocrit (Bld) [Volume fraction] 38.6 % Low 39.0-51.0 [facility] Comment on above: Order Comment: Speci men Type: BLOOD SPECIMENOrdering Facility: [facility] Address: [address] [place] [address] Performed By: #### 5 8410-2 ####[facility]ORATORYCLIA [id number] [address] [facility] Hemoglobin (Bld) [Mass/Vol] 12.3 g/dL Low 13.0-17.0 [facility] Comment on above: Order Comment: Speci men Type: BLOOD SPECIMENOrdering Facility: [facility] Address: [address] [place] [address] Performed By: #### 5 8410-2 ####[facility]ORATORYCLIA [id number] [address] STATES [facility] MCH (RBC) [Entitic mass] 29.9 pg Normal 26.0-34.0 [facility] Comment on above: Order Comment: Speci men Type: BLOOD SPECIMENOrdering Facility: [facility] Address: [address] [place] [address] Performed By: #### 5 8410-2 ####[facility]ORATORYCLIA [id number] [address] STATES [facility] MCHC (RBC) [Mass/Vol] 31.9 g/dL Normal 30.5-36.0 [facility] Comment on above: Order Comment: Speci men Type: BLOOD SPECIMENOrdering Facility: [facility] Address: [address] [place] [address] Performed By: #### 5 8410-2 ####[facility]ORATORYCLIA [id number] [address] MCV (RBC) [Entitic vol] 93.7 fL Normal 80.0-100.0 [facility] Comment on above: Order Comment: Speci men Type: BLOOD SPECIMENOrdering Facility: [facility] Address: [address] [place] [address] Performed By: #### 5 8410-2 ####[facility]ORATORYCLIA [id number] [address] Nucleated RBC (Bld) [#/Vol] 10*3/uL Normal <0.01 [facility] Comment on above: Order Comment: Speci men Type: BLOOD SPECIMENOrdering Facility: [facility] Address: [address] [place] [address] Performed By: #### 5 8410-2 ####[facility]ATORYCLIA [id number] [address] Platelet mean volume (Bld) [Entitic vol] 11.7 fL Normal 9.0-12.7 [facility] Comment on above: Order Comment: Speci men Type: BLOOD SPECIMENOrdering Facility: [facility] Address: [address] [place] [address] Performed By: #### 5 8410-2 ####[facility]ATORYCLIA [id number] [address] Platelets (Bld) [#/Vol] 134 10*3/uL Low 150-400 [facility] Comment on above: Order Comment: Speci men Type: BLOOD SPECIMENOrdering Facility: [facility] Address: [address] [place] [address] Result Comment: No c lot detected. Performed By: #### 5 8410-2 ####[facility]ATORYCLIA [id number] [address] RBC (Bld) [#/Vol] 4.12 10*6/uL Low 4.20-6.00 [facility] Comment on above: Order Comment: Speci men Type: BLOOD SPECIMENOrdering Facility: [facility] Address: [address] [place] [address] Performed By: #### 5 8410-2 ####[facility]ATORYCLIA [id number] [address] OF [facility] WBC (Bld) [#/Vol] 9.99 10*3/uL Normal 3.70-11.00 [facility] Comment on above: Order Comment: Speci men Type: BLOOD SPECIMENOrdering Facility: [facility] Address: [address] [place] [address] Performed By: #### 5 8410-2 ####[facility]ORATORYCLIA [id number] [address] OF [facility] CONSULT PROGon 02-21-2025 CONSULT PROG HNO ID: [id number] Author: ERIKA TEE APRN.[employer] TECHNICIAN Service: Infectious Disease Author Type: Nurse Practitioner Type: Consult Progress Note Filed: 02/21/2025 15:32 Note Text: Summary: ID signing off PROGRESS NOTE INFECTIOUS DISEASE BRIEF SUMMARY: 64-year-old male past medical history chronic Santana catheter urinary retention/neurogenic bladder, paraplegia due to epidural abscess, diabetes mellitus type 2, bilateral hydronephrosis s/p ureteral stent placement in April 2024 presented to [facility] 02/16/2025 after being found unresponsive at [facility]. Urine and blood cultures with growth of [...] (Src) 98.1 (Oral) Resp 18 Ht 5' 11 (1.80m) Wt 216 lb 0.8 oz (98.0kg) [...] Comment: Speci men Type: BLOOD SPECIMENOrdering Facility: [facility] Address: [address] [place] [address] Performed By: #### 2 4323-8 ####[facility]ORATORYCLIA [id number] [address] STATES [facility] ALP [Catalytic activity/Vol] 121 U/L High 38-113 [facility] Comment on above: Order Comment: Speci men Type: BLOOD SPECIMENOrdering Facility: [facility] Address: [address] [place] [address] Performed By: #### 2 4323-8 ####[facility]ORATORYCLIA [id number] [address] STATES [facility] ALT With P-5'-P [Catalytic activity/Vol] 15 U/L Normal 10-54 [facility] Comment on above: Order Comment: Speci men Type: BLOOD SPECIMENOrdering Facility: [facility] Address: [address] [place] [address] Performed By: #### 2 4323-8 ####[facility]ORATORYCLIA [id number] [place] [address] [place] Anion gap [Moles/Vol] 9 mmol/L Normal 8-15 [facility] Comment on above: Order Comment: Speci men Type: BLOOD SPECIMENOrdering Facility: [facility] Address: [address] [place] [address] Performed By: #### 2 4323-8 ####[facility]ORATORYCLIA [id number] [place] [address] [place] AST With P-5'-P [Catalytic activity/Vol] 23 U/L Normal 14-40 [facility] Comment on above: Order Comment: Speci men Type: BLOOD SPECIMENOrdering Facility: [facility] Address: [address] [place] [address] Performed By: #### 2 4323-8 ####[facility]ATORYCLIA [id number] [place] [address] [place] Bilirubin [Mass/Vol] 0.8 mg/dL Normal 0.2-1.3 [facility] Comment on above: Order Comment: Speci men Type: BLOOD SPECIMENOrdering Facility: [facility] Address: [address] [place] [address] Performed By: #### 2 4323-8 ####[facility]ORATORYCLIA [id number] [address] [place] Calcium [Mass/Vol] 8.2 mg/dL Low 8.5-10.2 [facility] Comment on above: Order Comment: Speci men Type: BLOOD SPECIMENOrdering Facility: [facility] Address: [address] [place] [address] Performed By: #### 2 4323-8 ####[facility]ORATORYCLIA [id number] [place] [address] [place] Chloride [Moles/Vol] 105 mmol/L Normal 98-107 [facility] Comment on above: Order Comment: Speci men Type: BLOOD SPECIMENOrdering Facility: [facility] Address: [address] [place] [address] Performed By: #### 2 4323-8 ####[facility]ORATORYCLIA [id number] [address] STATES [facility] CO2 [Moles/Vol] 21 mmol/L Low 22-30 [facility] Comment on above: Order Comment: Speci men Type: BLOOD SPECIMENOrdering Facility: [facility] Address: [address] [place] [address] Performed By: #### 2 4323-8 ####[facility]ITALCLIA [id number] [address] [place] Creatinine [Mass/Vol] 0.58 mg/dL Low 0.73-1.22 [facility] Comment on above: Order Comment: Speci men Type: BLOOD SPECIMENOrdering Facility: [facility] Address: [address] [place] [address] Performed By: #### 2 4323-8 ####[facility]ITALCLIA [id number] [address] Creatinine and Glomerular filtration rate.predicted panel (S/P/Bld) 110 mL/min/1.73m??? Normal >=60 [facility] Comment on above: Order Comment: Speci men Type: BLOOD SPECIMENOrdering Facility: [facility] Address: [address] [place] [address] Result Comment: Leena mated Glomerular Filtration Rate [...] actual GFR. Performed By: #### 2 4323-8 ####[facility]ATORYCLIA [id number] [address] OF [facility] Glucose [Mass/Vol] 162 mg/dL High 74-99 [facility] Comment on above: Order Comment: Speci men Type: BLOOD SPECIMENOrdering Facility: [facility] Address: [address] [place] [address] Result Comment: The [place] Diabetes Association (ADA) provides guidance for cutoff [...] Standards of Medical Care in Diabetes 2016, [place] Diabetes Association. Diabetes Care. 2016.39(Suppl 1). Performed By: #### 2 4323-8 ####[facility]ATORYCLIA [id number] [place] [address] [place] Potassium [Moles/Vol] 4.1 mmol/L Normal 3.7-5.1 [facility] Comment on above: Order Comment: Speci men Type: BLOOD SPECIMENOrdering Facility: [facility] Address: [address] [place] [address] Performed By: #### 2 4323-8 ####[facility]ATORYCLIA [id number] [place] [address] [place] Protein [Mass/Vol] 6.6 g/dL Normal 6.3-8.0 [facility] Comment on above: Order Comment: Speci men Type: BLOOD SPECIMENOrdering Facility: [facility] Address: [address] [place] [address] Performed By: #### 2 4323-8 ####[facility]ATORYCLIA [id number] [place] [address] [place] Sodium [Moles/Vol] 135 mmol/L Low 136-144 [facility] Comment on above: Order Comment: Speci men Type: BLOOD SPECIMENOrdering Facility: [facility] Address: [address] [place] [address] Performed By: #### 2 4323-8 ####[facility]ATORYCLIA [id number] [address] [place] Urea nitrogen [Mass/Vol] 21 mg/dL Normal 9-24 [facility] Comment on above: Order Comment: Speci men Type: BLOOD SPECIMENOrdering Facility: [facility] Address: [address] [place] [address] Performed By: #### 2 4323-8 ####[facility]ORATORYCLIA [id number] [address] OF [facility] Comprehensive metabolic 2000 panelon 02-20-2025 Albumin [Mass/Vol] 2.3 g/dL Low 3.9-4.9 [facility] Comment on above: Order Comment: Speci men Type: BLOOD SPECIMENOrdering Facility: [facility] Address: [address] [place] [address] Performed By: #### 2 4323-8 ####[facility]ATORYCLIA [id number] [address] [place] ALP [Catalytic activity/Vol] 107 U/L Normal 38-113 [facility] Comment on above: Order Comment: Speci men Type: BLOOD SPECIMENOrdering Facility: [facility] Address: [address] [place] [address] Performed By: #### 2 4323-8 ####[facility]ATORYCLIA [id number] [address] [place] ALT With P-5'-P [Catalytic activity/Vol] 17 U/L Normal 10-54 [facility] Comment on above: Order Comment: Speci men Type: BLOOD SPECIMENOrdering Facility: [facility] Address: [address] [place] [address] Performed By: #### 2 4323-8 ####[facility]ATORYCLIA [id number] [address] OF [facility] Anion gap [Moles/Vol] 8 mmol/L Normal 8-15 [facility] Comment on above: Order Comment: Speci men Type: BLOOD SPECIMENOrdering Facility: [facility] Address: [address] [place] [address] Performed By: #### 2 4323-8 ####[facility]ORATORYCLIA [id number] [place] [address] [place] AST With P-5'-P [Catalytic activity/Vol] 22 U/L Normal 14-40 [facility] Comment on above: Order Comment: Speci men Type: BLOOD SPECIMENOrdering Facility: [facility] Address: [address] [place] [address] Performed By: #### 2 4323-8 ####[facility]ATORYCLIA [id number] [place] [address] [place] Bilirubin [Mass/Vol] 0.8 mg/dL Normal 0.2-1.3 [facility] Comment on above: Order Comment: Speci men Type: BLOOD SPECIMENOrdering Facility: [facility] Address: [address] [place] [address] Performed By: #### 2 4323-8 ####[facility]ATORYCLIA [id number] [place] [address] [place] Calcium [Mass/Vol] 7.7 mg/dL Low 8.5-10.2 [facility] Comment on above: Order Comment: Speci men Type: BLOOD SPECIMENOrdering Facility: [facility] Address: [address] [place] [address] Performed By: #### 2 4323-8 ####[facility]ATORYCLIA [id number] [place] [address] [place] Chloride [Moles/Vol] 110 mmol/L High 98-107 [facility] Comment on above: Order Comment: Speci men Type: BLOOD SPECIMENOrdering Facility: [facility] Address: [address] [place] [address] Performed By: #### 2 4323-8 ####[facility]ORYCLIA [id number] [place] [address] [place] CO2 [Moles/Vol] 23 mmol/L Normal 22-30 [facility] Comment on above: Order Comment: Speci men Type: BLOOD SPECIMENOrdering Facility: [facility] Address: [address] [place] [address] Performed By: #### 2 4323-8 ####[facility]ITALCLIA [id number] [place] [id number] [place] [facility] Creatinine [Mass/Vol] 0.60 mg/dL Low 0.73-1.22 [facility] Comment on above: Order Comment: Jg valdez Type: BLOOD SPECIMENOrdering Facility: [facility] Address: [address] [place] [address] Performed By: #### 2 4323-8 ####[facility]ITALCLIA [id number] [address] Creatinine and Glomerular filtration rate.predicted panel (S/P/Bld) 108 mL/min/1.73m??? Normal >=60 [facility] Comment on above: Order Comment: Jg valdez Type: BLOOD SPECIMENOrdering Facility: [facility] Address: [address] [place] [address] Result Comment: Leena mated Glomerular Filtration Rate [...] actual GFR. Performed By: #### 2 4323-8 ####[facility]ATORYCLIA [id number] [address] STATES [facility] Glucose [Mass/Vol] 90 mg/dL Normal 74-99 [facility] Comment on above: Order Comment: Jg valdez Type: BLOOD SPECIMENOrdering Facility: [facility] Address: [address] [place] [address] Result Comment: The [place] Diabetes Association (ADA) provides guidance for cutoff [...] Standards of Medical Care in Diabetes 2016, [place] Diabetes Association. Diabetes Care. 2016.39(Suppl 1). Performed By: #### 2 4323-8 ####[facility]ATORYCLIA [id number] [place] [address] [place] Potassium [Moles/Vol] 4.1 mmol/L Normal 3.7-5.1 [facility] Comment on above: Order Comment: Jg valdez Type: BLOOD SPECIMENOrdering Facility: [facility] Address: [address] [place] [address] Performed By: #### 2 4323-8 ####[facility]ATORYCLIA [id number] [place] [address] [place] Protein [Mass/Vol] 5.7 g/dL Low 6.3-8.0 [facility] Comment on above: Order Comment: Jg valdez Type: BLOOD SPECIMENOrdering Facility: [facility] Address: [address] [place] [address] Performed By: #### 2 4323-8 ####[facility]ATORYCLIA [id number] [place] [address] [place] Sodium [Moles/Vol] 141 mmol/L Normal 136-144 [facility] Comment on above: Order Comment: [place] men Type: BLOOD SPECIMENOrdering Facility: [facility] Address: [address] [place] [address] Performed By: #### 2 4323-8 ####[facility]ATORYCLIA [id number] [place] [address] [place] Urea nitrogen [Mass/Vol] 25 mg/dL High 9-24 [facility] Comment on above: Order Comment: Al[place] men Type: BLOOD SPECIMENOrdering Facility: [facility] Address: [address] [place] [address] Performed By: #### 2 4323-8 ####[facility]ATORYCLIA [id number] [address] CBC panel Auto (Bld)on 02-19 Erythrocyte distribution width (RBC) [Ratio] 14.8 % Normal 11.5-15.0 [facility] Comment on above: Order Comment: Speci men Type: BLOOD SPECIMENOrdering Facility: [facility] Address: [address] [place] [address] Performed By: #### 5 8410-2 ####[facility]ORYCLIA [id number] [address] Hematocrit (Bld) [Volume fraction] 32.5 % Low 39.0-51.0 [facility] Comment on above: Order Comment: Speci men Type: BLOOD SPECIMENOrdering Facility: [facility] Address: [address] [place] [address] Performed By: #### 5 8410-2 ####[facility]ORYCLIA [id number] [address] Hemoglobin (Bld) [Mass/Vol] 11.1 g/dL Low 13.0-17.0 [facility] Comment on above: Order Comment: Speci men Type: BLOOD SPECIMENOrdering Facility: [facility] Address: [address] [place] [address] Performed By: #### 5 8410-2 ####[facility]ATORYCLIA [id number] [address] MCH (RBC) [Entitic mass] 30.5 pg Normal 26.0-34.0 [facility] Comment on above: Order Comment: Speci men Type: BLOOD SPECIMENOrdering Facility: [facility] Address: [address] [place] [address] Performed By: #### 5 8410-2 ####[facility]ORYCLIA [id number] [address] MCHC (RBC) [Mass/Vol] 34.2 g/dL Normal 30.5-36.0 [facility] Comment on above: Order Comment: Speci men Type: BLOOD SPECIMENOrdering Facility: [facility] Address: [address] [place] [address] Performed By: #### 5 8410-2 ####[facility]ATORYCLIA [id number] [address] OF [facility] MCV (RBC) [Entitic vol] 89.3 fL Normal 80.0-100.0 [facility] Comment on above: Order Comment: Speci men Type: BLOOD SPECIMENOrdering Facility: [facility] Address: [address] [place] [address] Performed By: #### 5 8410-2 ####[facility]ORYCLIA [id number] [address] OF [facility] Nucleated RBC (Bld) [#/Vol] 10*3/uL Normal <0.01 [facility] Comment on above: Order Comment: Speci men Type: BLOOD SPECIMENOrdering Facility: [facility] Address: [address] [place] [address] Performed By: #### 5 8410-2 ####[facility]ORYCLIA [id number] [address] Platelet mean volume (Bld) [Entitic vol] 11.8 fL Normal 9.0-12.7 [facility] Comment on above: Order Comment: Speci men Type: BLOOD SPECIMENOrdering Facility: [facility] Address: [address] [place] [address] Performed By: #### 5 8410-2 ####[facility]ORYCLIA [id number] [address] OF [facility] Platelets (Bld) [#/Vol] 87 10*3/uL Low 150-400 [facility] Comment on above: Order Comment: Speci men Type: BLOOD SPECIMENOrdering Facility: [facility] Address: [address] [place] [address] Result Comment: No c lot detected. Performed By: #### 5 8410-2 ####[facility]ATORYCLIA [id number] [place] [address] [place] RBC (Bld) [#/Vol] 3.64 10*6/uL Low 4.20-6.00 [facility] Comment on above: Order Comment: Speci men Type: BLOOD SPECIMENOrdering Facility: [facility] Address: [address] [place] [address] Performed By: #### 5 8410-2 ####[facility]ORYCLIA [id number] [place] [id number] [facility] WBC (Bld) [#/Vol] 9.94 10*3/uL Normal 3.70-11.00 [facility] Comment on above: Order Comment: Speci men Type: BLOOD SPECIMENOrdering Facility: [facility] Address: [address] [place] [address] Performed By: #### 5 8410-2 ####[facility]ORYCLIA [id number] [address] CNPNon 02-19-2025 CNPN Telephone ([facility]) ANMOL REYNOLDS ([id number]) 1960 M Date Time Provider Department 02/19/25 ANMOL HERBERT During your visit today, we recorded the following information about you: Anmol Herbert MD 02/19/2025 2:58 PM Signed Needs outpt cysto, pyelograms, bilateral stent change vs removal in 2-3 weeks. Comfort Sotelo 03/08/2025 10:16 AM Signed Patient is scheduled and group home was notified. Information was faxed. Comfort [...] Comments as of 02/17/2025: Verified medications with [facility] 02/17/2025 Problem List As Of Date 02/19/2025 Noted Resolved NO SHOW [[id number]] 08/31/2013 05/29/2020 Perineal abscess [L02.215] 06/13/2019 05/29/2020 [...] Comment: Jg valdez Type: BLOOD SPECIMENOrdering Facility: [facility] Address: [address] [place] [id number] Performed By: #### [id number] ####[facility] LABORATORYCLIA [id number] [place] [address] [place] Calcium.ionized adjusted to pH 7.4 (Bld) [Moles/Vol] 1.05 mmol/L Low 1.08-1.30 [facility] Comment on above: Order Comment: Jg valdez Type: BLOOD SPECIMENOrdering Facility: [facility] [facility] Address: [address] [place] [address] Performed By: #### 1 995-0 ####[facility] LABORATORYCLIA [id number] [address] Comprehensive metabolic 2000 panelon 02-19-2025 Albumin [Mass/Vol] 2.3 g/dL Low 3.9-4.9 [facility] Comment on above: Order Comment: Speci men Type: BLOOD SPECIMENOrdering Facility: [facility] Address: [address] [place] [address] Performed By: #### 2 4323-8 ####[facility] LABORATORYCLIA [id number] [address] ALP [Catalytic activity/Vol] 112 U/L Normal 38-113 [facility] Comment on above: Order Comment: Speci men Type: BLOOD SPECIMENOrdering Facility: [facility] Address: [address] [place] [address] Performed By: #### 2 4323-8 ####[facility] LABORATORYCLIA [id number] [address] ALT With P-5'-P [Catalytic activity/Vol] 21 U/L Normal 10-54 [facility] Comment on above: Order Comment: Speci men Type: BLOOD SPECIMENOrdering Facility: [facility] Address: [address] [place] [address] Performed By: #### 2 4323-8 ####[facility]ORYCLIA [id number] [address] Anion gap [Moles/Vol] 10 mmol/L Normal 8-15 [facility] Comment on above: Order Comment: Speci men Type: BLOOD SPECIMENOrdering Facility: [facility] Address: [address] [place] [address] Performed By: #### 2 4323-8 ####[facility]ORATORYCLIA [id number] [address] [place] AST With P-5'-P [Catalytic activity/Vol] 25 U/L Normal 14-40 [facility] Comment on above: Order Comment: Speci men Type: BLOOD SPECIMENOrdering Facility: [facility] Address: [address] [place] [address] Performed By: #### 2 4323-8 ####[facility]ORATORYCLIA [id number] [place] [address] [place] Bilirubin [Mass/Vol] 0.5 mg/dL Normal 0.2-1.3 [facility] Comment on above: Order Comment: Speci men Type: BLOOD SPECIMENOrdering Facility: [facility] Address: [address] [place] [address] Performed By: #### 2 4323-8 ####[facility]ORATORYCLIA [id number] [place] [address] [place] Calcium [Mass/Vol] 7.8 mg/dL Low 8.5-10.2 [facility] Comment on above: Order Comment: Speci men Type: BLOOD SPECIMENOrdering Facility: [facility] Address: [address] [place] [address] Performed By: #### 2 4323-8 ####[facility]ATORYCLIA [id number] [place] [address] [place] Chloride [Moles/Vol] 106 mmol/L Normal 98-107 [facility] Comment on above: Order Comment: Speci men Type: BLOOD SPECIMENOrdering Facility: [facility] Address: [address] [place] [address] Performed By: #### 2 4323-8 ####[facility]ORATORYCLIA [id number] [place] [address] [place] CO2 [Moles/Vol] 21 mmol/L Low 22-30 [facility] Comment on above: Order Comment: Speci men Type: BLOOD SPECIMENOrdering Facility: [facility] Address: [address] [place] [address] Performed By: #### 2 4323-8 ####[facility]ORATORYCLIA [id number] [place] [address] [place] Creatinine [Mass/Vol] 0.64 mg/dL Low 0.73-1.22 [facility] Comment on above: Order Comment: Jg valdez Type: BLOOD SPECIMENOrdering Facility: [facility] Address: [address] [place] [address] Performed By: #### 2 4323-8 ####[facility]ORATORYCLIA [id number] [address] OF [facility] Creatinine and Glomerular filtration rate.predicted panel (S/P/Bld) 106 mL/min/1.73m??? Normal >=60 [facility] Comment on above: Order Comment: Jg valdez Type: BLOOD SPECIMENOrdering Facility: [facility] Address: [address] [place] [address] Result Comment: Leena mated Glomerular Filtration Rate [...] actual GFR. Performed By: #### 2 4323-8 ####[facility]ORATORYCLIA [id number] [address] [place] Glucose [Mass/Vol] 115 mg/dL High 74-99 [facility] Comment on above: Order Comment: Jg valdez Type: BLOOD SPECIMENOrdering Facility: [facility] Address: [address] [place] [address] Result Comment: The [place] Diabetes Association (ADA) provides guidance for cutoff [...] Standards of Medical Care in Diabetes 2016, [place] [employer]. Diabetes Care. 2016.39(Suppl 1). Performed By: #### 2 4323-8 ####[facility]ORATORYCLIA [id number] [address] [place] Potassium [Moles/Vol] 3.7 mmol/L Normal 3.7-5.1 [facility] Comment on above: Order Comment: Speci men Type: BLOOD SPECIMENOrdering Facility: [facility] Address: [address] [place] [address] Performed By: #### 2 4323-8 ####[facility]ORATORYCLIA [id number] [address] [place] Protein [Mass/Vol] 5.5 g/dL Low 6.3-8.0 [facility] Comment on above: Order Comment: Speci men Type: BLOOD SPECIMENOrdering Facility: [facility] Address: [address] [place] [address] Performed By: #### 2 4323-8 ####[facility]ORATORYCLIA [id number] [address] STATES [facility] Sodium [Moles/Vol] 137 mmol/L Normal 136-144 [facility] Comment on above: Order Comment: Speci men Type: BLOOD SPECIMENOrdering Facility: [facility] Address: [address] [place] [address] Performed By: #### 2 4323-8 ####[facility]ORATORYCLIA [id number] [address] [place] Urea nitrogen [Mass/Vol] 36 mg/dL High 9-24 [facility] Comment on above: Order Comment: Speci men Type: BLOOD SPECIMENOrdering Facility: [facility] Address: [address] [place] [address] Performed By: #### 2 4323-8 ####[facility]ORATORYCLIA [id number] [address] [place] Urine Cultureon 02-19-2025 URC 412-25 Citrobacter freundii [place] 80,000-100,000 Providencia stuartii Providencia stuartii PMIR [place] >100,000 Proteus mirabilis [place] 25,000-50,000 Citrobacter freundii: REACTION Enterococcus faecalis [...] Meropenem Islt HARINDER <=0.25 S Nitrofurantoin Islt AHRINDER 256 R Pip+Tazo Islt HARINDER 8 S [...] R Vancomycin Islt HARINDER 1 S Normal [facility] Comment on above: Performed By: #### L 100.0500, L500.4050, L501.6710, L101.9900 #### [facility] [address] [place], [address] aPTT PPPon 02-19-2025 aPTT Coag (PPP) [Time] 68.5 s High 23.0-32.4 [facility] Comment on above: Order Comment: Speci men Type: BLOOD SPECIMENOrdering Facility: [facility] Address: [address] [place] [address] Performed By: #### 1 4979-9 ####[facility]ORATORYCLIA [id number] [address] [place] aPTT Coag (PPP) [Time] 71.1 s High 23.0-32.4 [facility] Comment on above: Order Comment: Speci men Type: BLOOD SPECIMENOrdering Facility: [facility] Address: [address] [place] [address] Performed By: #### 1 4979-9 ####[facility]ORATORYCLIA [id number] [address] CBC panel Auto (Bld)on 02-18 Erythrocyte distribution width (RBC) [Ratio] 14.9 % Normal 11.5-15.0 [facility] Comment on above: Order Comment: Speci men Type: BLOOD SPECIMENOrdering Facility: [facility] Address: [address] [place] [address] Performed By: #### 5 8410-2 ####[facility]ORATORYCLIA [id number] [address] STATES OF [facility] Hematocrit (Bld) [Volume fraction] 33.9 % Low 39.0-51.0 [facility] Comment on above: Order Comment: Speci men Type: BLOOD SPECIMENOrdering Facility: [facility] Address: [address] [place] [address] Performed By: #### 5 8410-2 ####[facility]ORATORYCLIA [id number] [address] Hemoglobin (Bld) [Mass/Vol] 11.3 g/dL Low 13.0-17.0 [facility] Comment on above: Order Comment: Speci men Type: BLOOD SPECIMENOrdering Facility: [facility] Address: [address] [place] [address] Performed By: #### 5 8410-2 ####[facility]ORATORYCLIA [id number] [address] MCH (RBC) [Entitic mass] 30.3 pg Normal 26.0-34.0 [facility] Comment on above: Order Comment: Speci men Type: BLOOD SPECIMENOrdering Facility: [facility] Address: [address] [place] [address] Performed By: #### 5 8410-2 ####[facility]ATORYCLIA [id number] [address] MCHC (RBC) [Mass/Vol] 33.3 g/dL Normal 30.5-36.0 [facility] Comment on above: Order Comment: Speci men Type: BLOOD SPECIMENOrdering Facility: [facility] Address: [address] [place] [address] Performed By: #### 5 8410-2 ####[facility]ATORYCLIA [id number] [address] MCV (RBC) [Entitic vol] 90.9 fL Normal 80.0-100.0 [facility] Comment on above: Order Comment: Speci men Type: BLOOD SPECIMENOrdering Facility: [facility] Address: [address] [place] [address] Performed By: #### 5 8410-2 ####[facility]ATORYCLIA [id number] [address] Nucleated RBC (Bld) [#/Vol] 10*3/uL Normal <0.01 [facility] Comment on above: Order Comment: Speci men Type: BLOOD SPECIMENOrdering Facility: [facility] Address: [address] [place] [address] Performed By: #### 5 8410-2 ####[facility]ATORYCLIA [id number] [address] Platelet mean volume (Bld) [Entitic vol] 11.9 fL Normal 9.0-12.7 [facility] Comment on above: Order Comment: Speci men Type: BLOOD SPECIMENOrdering Facility: [facility] Address: [address] [place] [address] Performed By: #### 5 8410-2 ####[facility]ATORYCLIA [id number] [address] [place] Platelets (Bld) [#/Vol] 69 10*3/uL Low 150-400 [facility] Comment on above: Order Comment: Speci men Type: BLOOD SPECIMENOrdering Facility: [facility] Address: [address] [place] [address] Result Comment: No c lot detected. Performed By: #### 5 8410-2 ####[facility]ORATORYCLIA [id number] [address] OF [facility] RBC (Bld) [#/Vol] 3.73 10*6/uL Low 4.20-6.00 [facility] Comment on above: Order Comment: Speci men Type: BLOOD SPECIMENOrdering Facility: [facility] Address: [address] [place] [address] Performed By: #### 5 8410-2 ####[facility]ATORYCLIA [id number] [address] OF [facility] WBC (Bld) [#/Vol] 13.39 10*3/uL High 3.70-11.00 [facility] Comment on above: Order Comment: Speci men Type: BLOOD SPECIMENOrdering Facility: [facility] Address: [address] [place] [address] Performed By: #### 5 8410-2 ####[facility]ATORYCLIA [id number] [address] CONSULT PROGon 02-18-2025 CONSULT PROG HNO ID: [id number] Author: TIMMY MARTINEZ RPh Service: Pharmacy Author [...] if there are questions. Timmy Martinez RPh Normal [facility] CONSULT PROG HNO ID: [id number] Author: RADHA GRAHAM RPh Service: Pharmacy Author [...] any questions, please contact Radha Graham at [phone]. Estimated Creatinine Clearance: 86.2 mL/min (based on [...] Readings: Date: Ht: 02/16/2025 180.3 cm (5' 11) Radha Graham RPh February 18, 2025 7:17 AM Normal [facility] Calcium.ionized [Moles/Vol]o n 02-18-2025 Calcium.ionized (BldV) [Mass/Vol] 1.07 mmol/L Low 1.08-1.30 [facility] Comment on above: Order Comment: Speci men Type: BLOOD SPECIMENOrdering Facility: [facility] Address: [address] [place] [address] Performed By: #### 1 995-0 ####[facility]ATORYCLIA [id number] [address] Calcium.ionized adjusted to pH 7.4 (Bld) [Moles/Vol] 1.07 mmol/L Low 1.08-1.30 [facility] Comment on above: Order Comment: Speci men Type: BLOOD SPECIMENOrdering Facility: [facility] Address: [address] [place] [address] Performed By: #### 1 995-0 ####[facility]ATORYCLIA [id number] [address] Comprehensive metabolic 2000 panelon 02-18-2025 Albumin [Mass/Vol] 2.3 g/dL Low 3.9-4.9 [facility] Comment on above: Order Comment: Speci men Type: BLOOD SPECIMENOrdering Facility: [facility] Address: [address] [place] [address] Performed By: #### 2 4323-8, 80545-8 ####[facility]ORATORYCLIA [id number] [address] STATES [facility] ALP [Catalytic activity/Vol] 115 U/L High 38-113 [facility] Comment on above: Order Comment: Speci men Type: BLOOD SPECIMENOrdering Facility: [facility] Address: [address] [place] [address] Performed By: #### 2 4323-8, 37313-4 ####[facility]ATORYCLIA [id number] [address] ALT With P-5'-P [Catalytic activity/Vol] 25 U/L Normal 10-54 [facility] Comment on above: Order Comment: Speci men Type: BLOOD SPECIMENOrdering Facility: [facility] Address: [address] [place] [address] Performed By: #### 2 4323-8, ####[facility] LABORATORYCLIA [id number] [place] [address] [place] Anion gap [Moles/Vol] 11 mmol/L Normal 8-15 [facility] Comment on above: Order Comment: Speci men Type: BLOOD SPECIMENOrdering Facility: [facility] Address: [address] [place] [address] Performed By: #### 2 432-8, ####[facility]ATORYCLIA [id number] [place] [address] [place] AST With P-5'-P [Catalytic activity/Vol] 38 U/L Normal 14-40 [facility] Comment on above: Order Comment: Speci men Type: BLOOD SPECIMENOrdering Facility: [facility] Address: [address] [place] [address] Performed By: #### 2 4323-8, ####[facility]ATORYCLIA [id number] [place] [address] [place] Bilirubin [Mass/Vol] 0.6 mg/dL Normal 0.2-1.3 [facility] Comment on above: Order Comment: Speci men Type: BLOOD SPECIMENOrdering Facility: [facility] Address: [address] [place] [address] Performed By: #### 2 4323-8, ####[facility]ATORYCLIA [id number] [place] [address] [place] Calcium [Mass/Vol] 7.8 mg/dL Low 8.5-10.2 [facility] Comment on above: Order Comment: Speci men Type: BLOOD SPECIMENOrdering Facility: [facility] Address: [address] [place] [address] Performed By: #### 2 432-8, 71335-3 ####[facility]ORATORYCLIA [id number] [address] [place] Chloride [Moles/Vol] 104 mmol/L Normal 98-107 [facility] Comment on above: Order Comment: Speci men Type: BLOOD SPECIMENOrdering Facility: [facility] Address: [address] [place] [address] Performed By: #### 2 4323-8, ####[facility]ORATORYCLIA [id number] [place] [address] [place] CO2 [Moles/Vol] 20 mmol/L Low 22-30 [facility] Comment on above: Order Comment: Speci men Type: BLOOD SPECIMENOrdering Facility: [facility] Address: [address] [place] [address] Performed By: #### 2 4323-8, ####[facility]ATORYCLIA [id number] [address] Creatinine [Mass/Vol] 1.04 mg/dL Normal 0.73-1.22 [facility] Comment on above: Order Comment: Speci men Type: BLOOD SPECIMENOrdering Facility: [facility] Address: [address] [place] [address] Performed By: #### 2 4323-8, 47785-5 ####[facility]ATORYCLIA [id number] [address] Creatinine and Glomerular filtration rate.predicted panel (S/P/Bld) 81 mL/min/1.73m??? Normal >=60 [facility] Comment on above: Order Comment: Speci men Type: BLOOD SPECIMENOrdering Facility: [facility] Address: [address] [place] [address] Result Comment: Leena mated Glomerular Filtration Rate [...] actual GFR. Performed By: #### 2 4323-8, ####[facility] [id number] [place] [address] [place] Glucose [Mass/Vol] 177 mg/dL High 74-99 [facility] Comment on above: Order Comment: Jg valdez Type: BLOOD SPECIMENOrdering Facility: [facility] Address: [address] [place] [address] Result Comment: The [place] Diabetes Association (ADA) provides guidance for cutoff [...] Standards of Medical Care in Diabetes 2016, [place] [employer] Association. Diabetes Care. 2016.39(Suppl 1). Performed By: #### 2 4323-8, ####[facility]CLIA [id number] [place] [address] [place] Potassium [Moles/Vol] 3.9 mmol/L Normal 3.7-5.1 [facility] Comment on above: Order Comment: Jg valdez Type: BLOOD SPECIMENOrdering Facility: [facility] Address: [address] [place] [address] Performed By: #### 2 4323-8, ####[facility] LABORATORYCLIA [id number] [place] [id number] [place] Protein [Mass/Vol] 5.8 g/dL Low 6.3-8.0 [facility] Comment on above: Order Comment: Jg valdez Type: BLOOD SPECIMENOrdering Facility: [facility] Address: [address] [place] [address] Performed By: #### 2 4323-8, ####[facility] LABORATORYCLIA [id number] [place] [id number] [place] Sodium [Moles/Vol] 135 mmol/L Low 136-144 [facility] Comment on above: Order Comment: Speci men Type: BLOOD SPECIMENOrdering Facility: [facility] Address: [address] [place] [address] Performed By: #### 2 4323-8, ####[facility]ORATORYCLIA [id number] [place] [address] [place] Urea nitrogen [Mass/Vol] 37 mg/dL High 9-24 [facility] Comment on above: Order Comment: Speci men Type: BLOOD SPECIMENOrdering Facility: [facility] Address: [address] [place] [address] Performed By: #### 2 4323-8, ####[facility]ORATORYCLIA [id number] [place] [address] [place] Magnesium SerPl-mCncon 02-18 Magnesium [Mass/Vol] 2.3 mg/dL Normal 1.7-2.3 [facility] Comment on above: Order Comment: Speci men Type: BLOOD SPECIMENOrdering Facility: [facility] Address: [address] [place] [address] Performed By: #### 2 4323-8, ####[facility] LABORATORYCLIA [id number] [address] [place] aPTT PPPon 02-18-2025 aPTT Coag (PPP) [Time] 40.2 s High 23.0-32.4 [facility] Comment on above: Order Comment: Speci men Type: BLOOD SPECIMENOrdering Facility: [facility] Address: [address] [place] [address] Performed By: #### 1 4979-9 ####[facility] LABORATORYCLIA [id number] [address] [place] aPTT Coag (PPP) [Time] 35.5 s High 23.0-32.4 [facility] Comment on above: Order Comment: Speci men Type: BLOOD SPECIMENOrdering Facility: [facility] Address: [address] [place] [address] Performed By: #### 1 4979-9 ####[facility]ORATORYCLIA [id number] [address] aPTT Coag (PPP) [Time] 33.2 s High 23.0-32.4 [facility] Comment on above: Order Comment: Speci men Type: BLOOD SPECIMENOrdering Facility: [facility] Address: [address] [place] [address] Performed By: #### 1 4979-9 ####[facility]ATORYCLIA [id number] [address] aPTT Coag (PPP) [Time] 51.0 s High 23.0-32.4 [facility] Comment on above: Order Comment: Speci men Type: BLOOD SPECIMENOrdering Facility: [facility] Address: [address] [place] [address] Performed By: #### 1 4979-9 ####[facility] LABORATORYCLIA [id number] [address] ALLIED HEALTHon 02-17-2025 ALLIED HEALTH HNO ID: [id number] Author: JANEL SIMEON RT(R) Service: Radiology Author Type: Technologist Type: Allied [...] PATIENT PRESENTS WITH AN IMPLANTABLE OR ATTACHED CARBIDER: No RADIOLOGY DEPARTMENT: General X-ray: Exam(s) Completed: [...] on above: Performed By: #### 3 2355-0 ####[facility] LABORATORYCLIA [id number] [address] OF [facility] CBC panel Auto (Bld)on 02-17 Erythrocyte distribution width (RBC) [Ratio] 15.0 % Normal 11.5-15.0 [facility] Comment on above: Order Comment: Speci [facility] Type: BLOOD SPECIMENOrdering Facility: [facility] Address: [address] [place] [address] Performed By: #### 5 8410-2 ####[facility] LABORATORYCLIA [id number] [address] STATES OF [facility] Hematocrit (Bld) [Volume fraction] 41.4 % Normal 39.0-51.0 [facility] Comment on above: Order Comment: Speci men Type: BLOOD SPECIMENOrdering Facility: [facility] Address: [address] [place] [address] Performed By: #### 5 8410-2 ####[facility] LABORATORYCLIA [id number] [address] STATES OF [facility] Hemoglobin (Bld) [Mass/Vol] 13.1 g/dL Normal 13.0-17.0 [facility] Comment on above: Order Comment: Speci men Type: BLOOD SPECIMENOrdering Facility: [facility] Address: [address] [place] [address] Performed By: #### 5 8410-2 ####[facility] LABORATORYCLIA [id number] [address] [place] MCH (RBC) [Entitic mass] 29.9 pg Normal 26.0-34.0 [facility] Comment on above: Order Comment: Speci men Type: BLOOD SPECIMENOrdering Facility: [facility] Address: [address] [place] [address] Performed By: #### 5 8410-2 ####[facility] LABORATORYCLIA [id number] [address] OF [facility] MCHC (RBC) [Mass/Vol] 31.6 g/dL Normal 30.5-36.0 [facility] Comment on above: Order Comment: Speci men Type: BLOOD SPECIMENOrdering Facility: [facility] Address: [address] [place] [address] Performed By: #### 5 8410-2 ####[facility] LABORATORYCLIA [id number] [address] MCV (RBC) [Entitic vol] 94.5 fL Normal 80.0-100.0 [facility] Comment on above: Order Comment: Speci men Type: BLOOD SPECIMENOrdering Facility: [facility] Address: [address] [place] [address] Performed By: #### 5 8410-2 ####[facility] LABORATORYCLIA [id number] [address] Nucleated RBC (Bld) [#/Vol] 10*3/uL Normal <0.01 [facility] Comment on above: Order Comment: Speci men Type: BLOOD SPECIMENOrdering Facility: [facility] Address: [address] [place] [address] Performed By: #### 5 8410-2 ####[facility] LABORATORYCLIA [id number] [address] [place] Platelet mean volume (Bld) [Entitic vol] 12.0 fL Normal 9.0-12.7 [facility] Comment on above: Order Comment: Speci men Type: BLOOD SPECIMENOrdering Facility: [facility] Address: [address] [place] [address] Performed By: #### 5 8410-2 ####[facility] LABORATORYCLIA [id number] [address] Platelets (Bld) [#/Vol] 64 10*3/uL Low 150-400 [facility] Comment on above: Order Comment: Speci men Type: BLOOD SPECIMENOrdering Facility: [facility] Address: [address] [place] [address] Result Comment: No c lot detected. Performed By: #### 5 8410-2 ####[facility]ATORYCLIA [id number] [address] RBC (Bld) [#/Vol] 4.38 10*6/uL Normal 4.20-6.00 [facility] Comment on above: Order Comment: Speci men Type: BLOOD SPECIMENOrdering Facility: [facility] Address: [address] [place] [address] Performed By: #### 5 8410-2 ####[facility]ORATORYCLIA [id number] [address] OF [facility] WBC (Bld) [#/Vol] 14.96 10*3/uL High 3.70-11.00 [facility] Comment on above: Order Comment: Speci men Type: BLOOD SPECIMENOrdering Facility: [facility] Address: [address] [place] [address] Performed By: #### 5 8410-2 ####[facility] LABORATORYCLIA [id number] [address] Erythrocyte distribution width (RBC) [Ratio] 14.8 % Normal 11.5-15.0 [facility] Comment on above: Order Comment: Speci men Type: BLOOD SPECIMENOrdering Facility: [facility] Address: [address] [place] [address] Performed By: #### 5 8410-2 ####[facility]ATORYCLIA [id number] [address] Hematocrit (Bld) [Volume fraction] 36.6 % Low 39.0-51.0 [facility] Comment on above: Order Comment: Speci men Type: BLOOD SPECIMENOrdering Facility: [facility] Address: [address] [place] [address] Performed By: #### 5 8410-2 ####[facility]ORATORYCLIA [id number] [place] [address] Hemoglobin (Bld) [Mass/Vol] 11.9 g/dL Low 13.0-17.0 [facility] Comment on above: Order Comment: Speci men Type: BLOOD SPECIMENOrdering Facility: [facility] Address: [address] [place] [address] Performed By: #### 5 8410-2 ####[facility]ATORYCLIA [id number] [address] MCH (RBC) [Entitic mass] 30.1 pg Normal 26.0-34.0 [facility] Comment on above: Order Comment: Speci men Type: BLOOD SPECIMENOrdering Facility: [facility] Address: [address] [place] [address] Performed By: #### 5 8410-2 ####[facility]ATORYCLIA [id number] [address] MCHC (RBC) [Mass/Vol] 32.5 g/dL Normal 30.5-36.0 [facility] Comment on above: Order Comment: Speci men Type: BLOOD SPECIMENOrdering Facility: [facility] Address: [address] [place] [address] Performed By: #### 5 8410-2 ####[facility]ATORYCLIA [id number] [address] MCV (RBC) [Entitic vol] 92.7 fL Normal 80.0-100.0 [facility] Comment on above: Order Comment: Speci men Type: BLOOD SPECIMENOrdering Facility: [facility] Address: [address] [place] [address] Performed By: #### 5 8410-2 ####[facility]ATORYCLIA [id number] [address] Nucleated RBC (Bld) [#/Vol] 10*3/uL Normal <0.01 [facility] Comment on above: Order Comment: Speci men Type: BLOOD SPECIMENOrdering Facility: [facility] Address: [address] [place] [address] Performed By: #### 5 8410-2 ####[facility]ATORYCLIA [id number] [address] OF [facility] Platelet mean volume (Bld) [Entitic vol] 11.7 fL Normal 9.0-12.7 [facility] Comment on above: Order Comment: Speci men Type: BLOOD SPECIMENOrdering Facility: [facility] Address: [address] [place] [address] Performed By: #### 5 8410-2 ####[facility]ATORYCLIA [id number] [address] [place] Platelets (Bld) [#/Vol] 93 10*3/uL Low 150-400 [facility] Comment on above: Order Comment: Speci men Type: BLOOD SPECIMENOrdering Facility: [facility] Address: [address] [place] [address] Result Comment: No c lot detected. Performed By: #### 5 8410-2 ####[facility]ATORYCLIA [id number] [address] OF [facility] RBC (Bld) [#/Vol] 3.95 10*6/uL Low 4.20-6.00 [facility] Comment on above: Order Comment: Speci men Type: BLOOD SPECIMENOrdering Facility: [facility] Address: [address] [place] [address] Performed By: #### 5 8410-2 ####[facility]ATORYCLIA [id number] [address] [place] WBC (Bld) [#/Vol] 19.64 10*3/uL High 3.70-11.00 [facility] Comment on above: Order Comment: Speci men Type: BLOOD SPECIMENOrdering Facility: [facility] Address: [address] [place] [address] Performed By: #### 5 8410-2 ####[facility]ORATORYCLIA [id number] [address] CONSULTon 02-17-2025 CONSULT HNO ID: [id number] Author: GAYLE SCOTT MD Service: Infectious Disease [...] and UTI. Spinal cord injury residing at [facility], presented to [facility] 02/16/2025 for unresponsiveness when normally alert [...] that although she was not at the group home she was called and told he [...] [facility] CONSULT HNO ID: [id number] Author: ANMOL HERBERT MD Service: Urology Author Type: Resident Type: Consults Filed: 02/19/2025 14:56 Note Text: Attestation signed by Anmol Herbert MD at 02/19/2025 2:56 PM I saw and evaluated the patient. Discussed with the resident and agree with resident's findings and plan as documented in the resident's note. Reviewed [facility] hx and imaging. Currently improving. Discussed plan w/ ID (Dr. Scott) Plan on outpt cysto, pyelograms, stent change vs removal in 2-3 weeks. Anmol Herbert MD Urology Consult 02/16/2025 HISTORY OF PRESENT ILLNESS: The patient is a 64 year old male known to [facility] urolog, with past medical history as listed below, [...] Cultures pending. Urologic history Follows with Dr. Grimm April 2024 - presented to ED w/ [...] hyperglycemia, with long-term current use of insulin ([facility]) 01/18/2021 Ureteral stone 11/25/2021 UTI (urinary tract infection) 11/26/2021 Vertebral osteomyelitis ([facility]) 01/04/2022 PAST SURGICAL HISTORY: PAST SURGICAL HISTORY [...] included)... Normal [facility] CONSULT PROGon 02-17-2025 CONSULT PROG HNO ID: [id number] Author: JESSICA CLEMENT RPh Service: Pharmacy Author [...] questions, [place] [phone]. Age: [age] year old Allergies: ALLERGIES No Known Allergies Last 3 Encounter Wt Readings: Date: Wt: 02/16/2025 95.2 kg (209 lb 14.1 oz) 05/02/2023 82.1 kg (181 lb) 04/23/2023 92.3 kg (203 lb 7.8 oz) Last 1 Encounter Ht Readings: Date: Ht: 02/16/2025 180.3 cm (5' 11) CrCl: 46.9 mL/min Temp (24hrs), Av.2 ?C [...] 6.1 (L) 12/02/2021 1246 13.7 Jessica Clement [facility] CONSULT PROG HNO ID: [id number] Author: YARI CAMARGO APRN.[employer] TECHNICIAN Service: Wound/Ostomy Author Type: Nurse Practitioner Type: Consult Progress Note Filed: 02/17/2025 10:33 Note Text: Summary: Inpatient Wound Care WOUND CARE SERVICE CONSULT CUPOLA TENDER HELPER NOTE SERVICE DATE: 02/17/2025 SERVICE TIME: 0809 [...] who is seen today with Katlin Vasquez, Wound/utility aide, and presented to hospital with complaints of [...] hyperglycemia, with long-term current use of insulin ([facility]) 01/18/2021 Ureteral stone 11/25/2021 UTI (urinary tract infection) 11/26/2021 Vertebral osteomyelitis ([facility]) 01/04/2022 PAST SURGICAL HISTORY Procedure Laterality Date BACK SURGERY HX I AND D OF PERIANAL ABSCESS, SIMPLE 05/04/2020 in ER INC/DRAINAGE OF PERINEAL ABSCESS 06/13/[address] Franklni JOINT REPLACEMENT HX ankle surgery right ORTHOPEDICS [...] (MERREM) 2 g INTRAVENOUS q 12 H 9a/9p vancomycin dosing and monitoring per pharmacy OTHER [...] [facility] CONSULT PROG HNO ID: [id number] Author: RUBI RIVER RPh Service: Pharmacy Author [...] have any questions, [place] [phone]. Age: [age] year old Allergies: ALLERGIES No Known Allergies Last 3 Encounter Wt Readings: Date: Wt: 02/16/2025 95.6 kg (210 lb 12.2 oz) 05/02/2023 82.1 kg (181 lb) 04/23/2023 92.3 kg (203 lb 7.8 oz) Last 1 Encounter Ht Readings: Date: Ht: 02/16/2025 180.3 cm (5' 11) CrCl: 38 mL/min Temp (24hrs), Av.1 ?C [...] 1246 13.7 12/01/2021 0428 14.2 [place], [facility] Normal [facility] Comprehensive metabolic 2000 panelon 02-17-2025 Albumin [Mass/Vol] 2.5 g/dL Low 3.9-4.9 [facility] Comment on above: Order Comment: Speci men Type: BLOOD SPECIMENOrdering Facility: [facility] Address: [address] [place] [address] Performed By: #### 2 777-1, 51959-2 ####[facility]ATORYCLIA [id number] [address] STATES OF [facility] ALP [Catalytic activity/Vol] 174 U/L High 38-113 [facility] Comment on above: Order Comment: Speci men Type: BLOOD SPECIMENOrdering Facility: [facility] Address: [address] [place] [address] Performed By: #### 2 777-1, 07631-3 ####[facility] LABORATORYCLIA [id number] [place] [address] [place] ALT With P-5'-P [Catalytic activity/Vol] 21 U/L Normal 10-54 [facility] Comment on above: Order Comment: Speci men Type: BLOOD SPECIMENOrdering Facility: [facility] Address: [address] [place] [address] Performed By: #### 2 777-1, 55884-4 ####[facility]ATORYCLIA [id number] [address] [place] Anion gap [Moles/Vol] 11 mmol/L Normal 8-15 [facility] Comment on above: Order Comment: Speci men Type: BLOOD SPECIMENOrdering Facility: [facility] Address: [address] [place] [address] Performed By: #### 2 777-1, 45030-0 ####[facility]ATORYCLIA [id number] [place] [address] [place] AST With P-5'-P [Catalytic activity/Vol] 41 U/L High 14-40 [facility] Comment on above: Order Comment: Speci men Type: BLOOD SPECIMENOrdering Facility: [facility] Address: [address] [place] [address] Performed By: #### 2 777-1, 22462-6 ####[facility]ATORYCLIA [id number] [place] [address] [place] Bilirubin [Mass/Vol] 0.9 mg/dL Normal 0.2-1.3 [facility] Comment on above: Order Comment: Speci men Type: BLOOD SPECIMENOrdering Facility: [facility] Address: [address] [place] [address] Performed By: #### 2 777-1, 02475-3 ####[facility]ATORYCLIA [id number] [place] [address] [place] Calcium [Mass/Vol] 8.2 mg/dL Low 8.5-10.2 [facility] Comment on above: Order Comment: Speci men Type: BLOOD SPECIMENOrdering Facility: [facility] Address: [address] [place] [address] Performed By: #### 2 777-1, 86494-3 ####[facility]ATORYCLIA [id number] [place] [address] [place] Chloride [Moles/Vol] 104 mmol/L Normal 98-107 [facility] Comment on above: Order Comment: Speci men Type: BLOOD SPECIMENOrdering Facility: [facility] Address: [address] [place] [address] Performed By: #### 2 777-1, 72288-9 ####[facility]ATORYCLIA [id number] [place] [address] [place] CO2 [Moles/Vol] 17 mmol/L Low 22-30 [facility] Comment on above: Order Comment: Speci men Type: BLOOD SPECIMENOrdering Facility: [facility] Address: [address] [place] [id number] Performed By: #### 2 777-1, 82014-9 ####[facility]ATORYCLIA [id number] [place] [address] [place] Creatinine [Mass/Vol] 1.90 mg/dL High 0.73-1.22 [facility] Comment on above: Order Comment: Speci men Type: BLOOD SPECIMENOrdering Facility: [facility] Address: [address] [place] [address] Performed By: #### 2 777-1, 89790-7 ####[facility]ATORYCLIA [id number] [address] STATES OF [facility] Creatinine and Glomerular filtration rate.predicted panel (S/P/Bld) 39 mL/min/1.73m??? Low >=60 [facility] Comment on above: Order Comment: Speci men Type: BLOOD SPECIMENOrdering Facility: [facility] Address: [address] [place] [address] Result Comment: Leena mated Glomerular Filtration Rate [...] actual GFR. Performed By: #### 2 777-1, 99428-1 ####[facility]ORATORYCLIA [id number] [place] [id number] [place] Glucose [Mass/Vol] 225 mg/dL High 74-99 [facility] Comment on above: Order Comment: Speci men Type: BLOOD SPECIMENOrdering Facility: [facility] Address: [address] [place] [address] Result Comment: The [place] Diabetes Association (ADA) provides guidance for cutoff [...] Standards of Medical Care in Diabetes 2016, [place] Diabetes Association. Diabetes Care. 2016.39(Suppl 1). Performed By: #### 2 777-1, 98791-7 ####[facility]ORATORYCLIA [id number] [place] [address] [place] Potassium [Moles/Vol] 4.7 mmol/L Normal 3.7-5.1 [facility] Comment on above: Order Comment: Speci men Type: BLOOD SPECIMENOrdering Facility: [facility] Address: [address] [place] [address] Performed By: #### 2 777-, 09732-3 ####[facility]ITALCLIA [id number] [place] [address] [place] Protein [Mass/Vol] 6.0 g/dL Low 6.3-8.0 [facility] Comment on above: Order Comment: Speci men Type: BLOOD SPECIMENOrdering Facility: [facility] Address: [address] [place] [address] Performed By: #### 2 777-, 86845-3 ####[facility]ATORYCLIA [id number] [place] [address] [place] Sodium [Moles/Vol] 132 mmol/L Low 136-144 [facility] Comment on above: Order Comment: Speci men Type: BLOOD SPECIMENOrdering Facility: [facility] Address: [address] [place] [address] Performed By: #### 2 777-1, 11815-3 ####[facility]ORATORYCLIA [id number] [place] [address] [place] Urea nitrogen [Mass/Vol] 34 mg/dL High 9-24 [facility] Comment on above: Order Comment: Speci men Type: BLOOD SPECIMENOrdering Facility: [facility] Address: [facility] [place] [address] Performed By: #### 2 777-1, 26618-8 ####[facility] LABORATORYCLIA [id number] [place] [address] [place] [facility] ECG COMPLETEon 02-17-2025 ECG COMPLETE Ventricular Rate : 152 BPM QRS Duration : 100 ms Q-T Interval : 300 ms QTC Calculation(Bazett) : 477 ms Calculated R [place] : 16 degrees Calculated T [place] : 7 degrees ATRIAL FIBRILLATION WITH RAPID VENTRICULAR RESPONSE NONSPECIFIC T WAVE ABNORMALITY ABNORMAL ECG WHEN COMPARED WITH ECG OF 16-Feb-2025 19:16, ATRIAL FIBRILLATION HAS REPLACED SINUS RHYTHM NONSPECIFIC T WAVE ABNORMALITY NOW EVIDENT IN INFERIOR LEADS Confirmed by MANISHA ANDERSEN MD ([id number]) on 02/17/2025 9:11:43 AM NAME : ANMOL REYNOLDS PID : [id number] : 1960 Gender : Male Race : ORD : [id number] Procedure Date : Feb 17 2025 07:55:31 Edit Date : Feb 17 2025 09:11:44 Diagnosis: ATRIAL FIBRILLATION WITH RAPID VENTRICULAR RESPONSE NONSPECIFIC T WAVE ABNORMALITY ABNORMAL ECG WHEN COMPARED WITH ECG OF 16-Feb-2025 19:16, ATRIAL FIBRILLATION HAS REPLACED SINUS RHYTHM NONSPECIFIC T WAVE ABNORMALITY NOW EVIDENT IN INFERIOR LEADS Confirmed by MANISHA ANDERSEN MD ([id number]) on 02/17/2025 9:11:43 AM Test Reason : Arrhythmia Location : [address] : [place] [address] Overread By : MANISHA ANDERSEN MD Edited By : MANISHA ANDERSEN MD Referred By : , Acquired by : SANDHYA ABURTO [facility] ECHOon 02-17-2025 Echocardiography Echocardiography Report: Transthoracic Echo [facility] Date of service: 02/17/2025 10:58:00 AM HOSPITAL Ordering physician: JON MCDONALD Indication: Sustained atrial fibrillation Technologist: Marie Magana [facility] Interpreting physician: Naresh Yo MD PATIENT: [...] * * * Final * * * [employer] : [id number] amicsSISUID Normal [facility] Gas and Carbon monoxide pane l (BldV)on 02-17-2025 BASE DEFICIT, VENOUS -7 mmol/L Low -2-0 [facility] Comment on above: Order Comment: Speci men Type: VENOUS BLOOD SPECIMENOrdering Facility: [facility] Address: [address] [place] [address] Performed By: #### 2 4344-4 ####[facility] LABORATORYCLIA [id number] [place] [address] [place] Body temperature 99.86 [degF] Normal [facility] Comment on above: Order Comment: Speci men Type: VENOUS BLOOD SPECIMENOrdering Facility: [facility] Address: [address] [place] [address] Performed By: #### 2 4344-4 ####[facility]ORATORYCLIA [id number] [place] [address] [place] Calcium.ionized (BldV) [Mass/Vol] 1.17 mmol/L Normal 1.08-1.30 [facility] Comment on above: Order Comment: Speci men Type: VENOUS BLOOD SPECIMENOrdering Facility: [facility] Address: [address] [place] [address] Performed By: #### 2 4344-4 ####[facility]ATORYCLIA [id number] [place] [address] [place] [facility] Calcium.ionized adjusted to pH 7.4 (BldA) [Moles/Vol] 1.12 mmol/L Normal 1.08-1.30 [facility] Comment on above: Order Comment: Speci men Type: VENOUS BLOOD SPECIMENOrdering Facility: [facility] Address: [address] [place] [address] Performed By: #### 2 4344-4 ####[facility] LABORATORYCLIA [id number] [address] [place] Carboxyhemoglobin (BldV) [Mass fraction] 1.1 % Normal 0.0-2.0 [facility] Comment on above: Order Comment: Speci men Type: VENOUS BLOOD SPECIMENOrdering Facility: [facility] Address: [address] [place] [address] Result Comment: Carb oxyhemoglobin Reference Range for Smokers: 2.0-8.0% Performed By: #### 2 4344-4 ####[facility]ATORYCLIA [id number] [place] [address] [place] Chloride [Moles/Vol] 107 mmol/L High 97-105 [facility] Comment on above: Order Comment: Speci men Type: VENOUS BLOOD SPECIMENOrdering Facility: [facility] Address: [address] [place] [address] Performed By: #### 2 4344-4 ####[facility] LABORATORYCLIA [id number] [address] [place] CO2 (BldV) [Partial pressure] 38 mm[Hg] Low 42-55 [facility] Comment on above: Order Comment: Speci men Type: VENOUS BLOOD SPECIMENOrdering Facility: [facility] Address: [address] [place] [address] Performed By: #### 2 4344-4 ####[facility]ORATORYCLIA [id number] [address] CO2 adjusted to patient's actual temperature (BldV) [Partial pressure] 39 mmHg Low 42-55 [facility] Comment on above: Order Comment: Speci men Type: VENOUS BLOOD SPECIMENOrdering Facility: [facility] Address: [address] [place] [address] Performed By: #### 2 4344-4 ####[facility]ORATORYCLIA [id number] [address] [place] Glucose [Mass/Vol] 236 mg/dL High 60-105 [facility] Comment on above: Order Comment: Speci men Type: VENOUS BLOOD SPECIMENOrdering Facility: [facility] Address: [address] [place] [address] Performed By: #### 2 4344-4 ####[facility]ORATORYCLIA [id number] [address] [place] HCO3 (Bld) [Moles/Vol] 18 mmol/L Low 24-28 [facility] Comment on above: Order Comment: Speci men Type: VENOUS BLOOD SPECIMENOrdering Facility: [facility] Address: [address] [place] [address] Performed By: #### 2 4344-4 ####[facility]ORATORYCLIA [id number] [address] Hematocrit (Bld) [Volume fraction] 37.3 % Low 39.0-51.0 [facility] Comment on above: Order Comment: Speci men Type: VENOUS BLOOD SPECIMENOrdering Facility: [facility] Address: [address] [place] [address] Performed By: #### 2 4344-4 ####[facility]ATORYCLIA [id number] [address] [place] Hemoglobin (Bld) [Mass/Vol] 12.1 g/dL Low 13.0-17.0 [facility] Comment on above: Order Comment: Speci men Type: VENOUS BLOOD SPECIMENOrdering Facility: [facility] Address: [facility] [place] [address] Performed By: #### 2 4344-4 ####[facility] LABORATORYCLIA [id number] [address] [place] Lactate [Moles/Vol] 2.2 mmol/L Normal 0.5-2.2 [facility] Comment on above: Order Comment: Speci men Type: VENOUS BLOOD SPECIMENOrdering Facility: [facility] Address: [address] [place] [address] Performed By: #### 2 4344-4 ####[facility]ORATORYCLIA [id number] [address] [place] Methemoglobin (Bld) [Mass fraction] 0.8 % Normal 0.0-1.5 [facility] Comment on above: Order Comment: Speci men Type: VENOUS BLOOD SPECIMENOrdering Facility: [facility] Address: [address] [place] [address] Performed By: #### 2 4344-4 ####[facility] LABORATORYCLIA [id number] [address] O2 THERAPY VENT=Ventilator Normal [facility] Comment on above: Order Comment: Speci men Type: VENOUS BLOOD SPECIMENOrdering Facility: [facility] Address: [address] [place] [address] Performed By: #### 2 4344-4 ####[facility]ORATORYCLIA [id number] [address] [place] Oxygen (BldV) [Partial pressure] 65 mm[Hg] High 35-45 [facility] Comment on above: Order Comment: Speci men Type: VENOUS BLOOD SPECIMENOrdering Facility: [facility] Address: [address] [place] [address] Performed By: #### 2 4344-4 ####[facility] LABORATORYCLIA [id number] [place] Oxygen adjusted to patient's actual temperature (BldV) [Partial pressure] 68 mmHg High 35-45 [facility] Comment on above: Order Comment: Speci men Type: VENOUS BLOOD SPECIMENOrdering Facility: [facility] Address: [address] [place] [address] Performed By: #### 2 4344-4 ####[facility] LABORATORYCLIA [id number] [address] [place] Oxygen saturation in Venous blood 90 % High 60-85 [facility] Comment on above: Order Comment: Speci men Type: VENOUS BLOOD SPECIMENOrdering Facility: [facility] Address: [address] [place] [address] Performed By: #### 2 4344-4 ####[facility] LABORATORYCLIA [id number] [address] [place] Oxyhemoglobin (BldV) [Mass fraction] 89 % High 60-85 [facility] Comment on above: Order Comment: Speci men Type: VENOUS BLOOD SPECIMENOrdering Facility: [facility] Address: [address] [place] [address] Performed By: #### 2 4344-4 ####[facility] LABORATORYCLIA [id number] [address] [place] pH (BldV) 7.31 [pH] Low 7.32-7.42 [facility] Comment on above: Order Comment: Speci men Type: VENOUS BLOOD SPECIMENOrdering Facility: [facility] Address: [address] [place] [address] Performed By: #### 2 4344-4 ####[facility] LABORATORYCLIA [id number] [address] [place] pH adjusted to patient's actual temperature (BldV) 7.30 Low 7.32-7.42 [facility] Comment on above: Order Comment: Speci men Type: VENOUS BLOOD SPECIMENOrdering Facility: [facility] Address: [address] [place] [address] Performed By: #### 2 4344-4 ####[facility] LABORATORYCLIA [id number] [address] [place] Potassium [Moles/Vol] 4.7 mmol/L Normal 3.5-5.0 [facility] Comment on above: Order Comment: Speci men Type: VENOUS BLOOD SPECIMENOrdering Facility: [facility] Address: [address] [place] [address] Performed By: #### 2 4344-4 ####[facility] LABORATORYCLIA [id number] [address] OF [facility] Sodium [Moles/Vol] 134 mmol/L Low 136-144 [facility] Comment on above: Order Comment: Speci men Type: VENOUS BLOOD SPECIMENOrdering Facility: [facility] Address: [address] [place] [address] Performed By: #### 2 4344-4 ####[facility] LABORATORYCLIA [id number] [address] OF [facility] NURSING PROGon 02-17-2025 NURSING PROG HNO ID: [id number] Author: ARLEN BUTLER RN Service: Nursing Author Type: Registered Nurse Type: Nursing Progress Note Filed: 02/17/2025 07:12 Note Text: Dr. Story and Dr. Gama at bedside. Pt in Afib rhythm. Order for 2 grams Magnesium IV Normal [facility] NUTRITIONon 02-17-2025 NUTRITION HNO ID: [id number] Author: DARA MCDUFFIE RD Service: Nutrition Therapy [...] h/o paraplegia and wounds admitted from a [place] after being found unresponsive with concerns for sepsis. Intubated in ICU. Intake History: Nutrition Intake Prior to Admission: Greater than 75% estimated energy needs Dosing Weight: 74 kg (163 lb 2.3 oz) Dosing Weight Type: [place] body weight (adjusted for paraplegia) Estimated kilocalorie needs: 1850-2220kcals Calorie Calculation Method: 25-30 kcals/kg Estimated protein needs (grams): 111-148gms Grams protein determined by: 1.5 - 2.0 g/kg (wound healing if renal fxn continues to improve) Diet Orders (From admission, onward) Start Ordered 02/17/25 0215 DIET NPO START NOW 02/17/25 0204 Anthropometrics: Height: 180.3 cm (5' 11) Weight: 95.2 kg (209 lb 14.1 oz) [...] SIGNATURE: Dara Mcduffie RD PATIENT NAME: Anmol Reynolds DATE: February 17, 2025 TIME: 8:02 AM Normal [facility] PT panel Coag (PPP)on 2024 INR Coag (PPP) [Relative time] 1.2 {INR} Normal 0.9-1.3 [facility] Comment on above: Order Comment: Speci men Type: BLOOD SPECIMENOrdering Facility: [facility] Address: [address] [place] [address] Result Comment: Lorna min K Antagonist (VKA) Therapeutic Range: INR 2 to 3 (Target INR of 2.5) Note: For patients treated with VKA drugs, such as warfarin, the [employer] 2012 Guideline recommends [...] Chest 2012, 141:7S-47S Marcela RA, et al. [facility] 2017, 70: 252-289 Performed By: #### 1 4979-9, 07389-3 ####[facility]ITALCLIA [id number] [place] [address] [place] PT Coag (PPP) [Time] 12.4 s Normal 9.7-13.0 [facility] Comment on above: Order Comment: Speci men Type: BLOOD SPECIMENOrdering Facility: [facility] Address: [address] [place] [address] Performed By: #### 1 4979-9, 71960-0 ####[facility]ITALCLIA [id number] [place] [address] [place] Phosphate SerPl-mCncon 02-17 Phosphate [Mass/Vol] 4.4 mg/dL Normal 2.7-4.8 [facility] Comment on above: Order Comment: Speci men Type: BLOOD SPECIMENOrdering Facility: [facility] Address: [address] [place] [address] Performed By: #### 2 777-1, 21893-7 ####[facility] LABORATORYCLIA [id number] [place] [address] [place] STAPHYLOCOCCUS AUREUS AND MR SA SCREEN, PCR, NASALon 02-17-2025 S. aureus and MRSA panel JOSSY+probe (Nose) Methicillin-SUSCEPTIB LE Staphylococcus aureus Detected Abnormal Not Detected [facility] Comment on above: Order Comment: Speci men Type: SWABOrdering Facility: [facility] Address: [address] [place] [address] Performed By: #### S APCR ####[facility] LABORATORYCLIA [id number] [address] [place] THERAPY NTon 02-17-2025 THERAPY NT HNO ID: [id number] Author: SANDHYA ABURTO, TOMMIE Service: Respiratory Therapy Author Type: Registered Resp [...] PROGRESS NOTE SERVICE DATE: 02/17/2025 SERVICE TIME: 08 sbt SIGNATURE: Sandhya Aburto, TOMMIE PATIENT NAME: Anmol Given DATE: February 17, 2025 TIME: 8:03 AM PAGER/CONTACT #: angela Kc [facility] Vancomycin random [Mass/Vol] on 02-17-2025 Vancomycin [Mass/Vol] 6.1 ug/mL Low 10.0-20.0 [facility] Comment on above: Order Comment: Speci men Type: BLOOD SPECIMENOrdering Facility: [facility] Address: [address] [place] [address] Result Comment: Refe rence ranges and high/low indicator flags are provided as general guidelines only. The treating physician must determine appropriate target levels/dosing based on the specific clinical situation. Performed By: #### 4 091-5 ####[facility] LABORATORYCLIA [id number] [address] [place] XR ABDOMEN 1V SUPINEon 02-17 [...] The side port overlies the GE junction. Dining Chair Seat Cushion Trimmer: SEWORKSB Transcribe Date/Time: Feb 17 2025 11:05A Dictated by : VIPIN JASSO MD This examination was interpreted and the report reviewed and electronically signed by: VIPIN JASSO MD on Feb 17 2025 11:06AM EST [id number] N Normal [facility] aPTT PPPon 02-17-2025 aPTT Coag (PPP) [Time] 38.7 s High 23.0-32.4 [facility] Comment on above: Order Comment: Speci men Type: BLOOD SPECIMENOrdering Facility: [facility] Address: [address] [place] [address] Performed By: #### 1 4979-9 ####[facility] LABORATORYCLIA [id number] [address] STATES OF [facility] aPTT Coag (PPP) [Time] EXTREMELY ABNORMA L RESULT. No clot detected at 320 seconds. Refer to anticoagulation nomogram for further actions. Critically abnormal (none) [facility] Comment on above: Order Comment: Speci men Type: BLOOD SPECIMENOrdering Facility: [facility] Address: [address] [place] [address] Performed By: #### 1 4979-9 ####[facility] LABORATORYCLIA [id number] [address] OF [facility] aPTT Coag (PPP) [Time] 36.7 s High 23.0-32.4 [facility] Comment on above: Order Comment: Speci men Type: BLOOD SPECIMENOrdering Facility: [facility] Address: [facility] [place] [address] Performed By: #### 1 4979-9, 58383-1 ####[facility] LABORATORYCLIA [id number] [address] OF [facility] ALLIED HEALTHon 02-16-2025 ALLIED HEALTH HNO ID: [id number] Author: DILCIA BASILIO RT(R) Service: ? Author [...] PATIENT PRESENTS WITH AN IMPLANTABLE OR ATTACHED CARBIDER: No ALLERGIES: Reviewed and unchanged CONTRAST ALLERGY: [...] PERIPHERAL IV DATA: Inpatient - refer to LDA documentation RADIOLOGY DEPARTMENT: CT; Exam(s) Completed: Brain , Chest Abdomen Pelvis, CTA Brain , and CTA Neck SIGNATURE: Dilcia Basilio RT(R) PATIENT NAME: Anmol Reynolds DATE: February 16, 2025 TIME: 8:26 PM Normal [facility] Bacteria Bld Culton 02-17-20 25 Bacteria identified Cx Nom (Bld) ORGANISM [...] on above: Performed By: #### 6 00-7 ####[facility] LABORATORYCLIA [id number] [place] [address] [place] Bacteria identified Cx [...] above: Performed By: #### 6 00-7 #### [facility] [place] [id number] [place] [id number] [place] Bacteria Ur Culton [...] above: Performed By: #### 2 4356-8, 630-4 ####[facility] LABORATORYCLIA [id number] [address] STATES OF [facility] CBC W Auto Differential pane l (Bld)on 02-16-2025 Basophils (Bld) [#/Vol] 0.00 10*3/uL Normal <0.11 [facility] Comment on above: Order Comment: Speci men Type: BLOOD SPECIMENOrdering Facility: [facility] Address: [address] [place] [address] Performed By: #### 5 7021-8 ####[facility] LABORATORYCLIA [id number] [address] Basophils/100 WBC (Bld) 0.0 % Normal [facility] Comment on above: Order Comment: Speci men Type: BLOOD SPECIMENOrdering Facility: [facility] Address: [address] [place] [address] Performed By: #### 5 7021-8 ####[facility] LABORATORYCLIA [id number] [address] Differential cell count method Nom (Bld) Manual Normal [facility] Comment on above: Order Comment: Speci men Type: BLOOD SPECIMENOrdering Facility: [facility] Address: [address] [place] [address] Performed By: #### 5 7021-8 ####[facility] LABORATORYCLIA [id number] [address] [place] Eosinophils (Bld) [#/Vol] 0.00 10*3/uL Normal <0.46 [facility] Comment on above: Order Comment: Speci men Type: BLOOD SPECIMENOrdering Facility: [facility] Address: [facility] [place] [address] Performed By: #### 5 7021-8 ####[facility] LABORATORYCLIA [id number] [address] [place] Eosinophils/100 WBC (Bld) 0.0 % Normal [facility] Comment on above: Order Comment: Speci men Type: BLOOD SPECIMENOrdering Facility: [facility] Address: [address] [place] [address] Performed By: #### 5 7021-8 ####[facility] LABORATORYCLIA [id number] [address] OF [facility] Erythrocyte distribution width (RBC) [Ratio] 14.5 % Normal 11.5-15.0 [facility] Comment on above: Order Comment: Speci men Type: BLOOD SPECIMENOrdering Facility: [facility] Address: [address] [place] [address] Performed By: #### 5 7021-8 ####[facility] LABORATORYCLIA [id number] [address] OF [facility] Hematocrit (Bld) [Volume fraction] 34.9 % Low 39.0-51.0 [facility] Comment on above: Order Comment: Speci men Type: BLOOD SPECIMENOrdering Facility: [facility] Address: [address] [place] [address] Performed By: #### 5 7021-8 ####[facility] LABORATORYCLIA [id number] [address] Hemoglobin (Bld) [Mass/Vol] 11.6 g/dL Low 13.0-17.0 [facility] Comment on above: Order Comment: Speci men Type: BLOOD SPECIMENOrdering Facility: [facility] Address: [address] [place] [address] Performed By: #### 5 7021-8 ####[facility] LABORATORYCLIA [id number] [address] [place] Lymphocytes (Bld) [#/Vol] 0.31 10*3/uL Low 1.00-4.00 [facility] Comment on above: Order Comment: Speci men Type: BLOOD SPECIMENOrdering Facility: [facility] Address: [address] [place] [address] Performed By: #### 5 7021-8 ####[facility]ORATORYCLIA [id number] [address] STATES [facility] Lymphocytes/100 WBC (Bld) 3.0 % Normal [facility] Comment on above: Order Comment: Speci men Type: BLOOD SPECIMENOrdering Facility: [facility] Address: [address] [place] [address] Performed By: #### 5 7021-8 ####[facility] LABORATORYCLIA [id number] [address] OF [facility] MCH (RBC) [Entitic mass] 30.1 pg Normal 26.0-34.0 [facility] Comment on above: Order Comment: Speci men Type: BLOOD SPECIMENOrdering Facility: [facility] Address: [address] [place] [address] Performed By: #### 5 7021-8 ####[facility] LABORATORYCLIA [id number] [address] STATES OF [facility] MCHC (RBC) [Mass/Vol] 33.2 g/dL Normal 30.5-36.0 [facility] Comment on above: Order Comment: Speci men Type: BLOOD SPECIMENOrdering Facility: [facility] Address: [address] [place] [address] Performed By: #### 5 7021-8 ####[facility] LABORATORYCLIA [id number] [address] [place] MCV (RBC) [Entitic vol] 90.6 fL Normal 80.0-100.0 [facility] Comment on above: Order Comment: Speci men Type: BLOOD SPECIMENOrdering Facility: [facility] Address: [address] [place] [address] Performed By: #### 5 7021-8 ####[facility] LABORATORYCLIA [id number] [address] Metamyelocytes/100 WBC (Bld) 3.0 % Normal [facility] Comment on above: Order Comment: Speci men Type: BLOOD SPECIMENOrdering Facility: [facility] Address: [address] [place] [address] Performed By: #### 5 7021-8 ####[facility]ORATORYCLIA [id number] [place] [address] [place] Monocytes (Bld) [#/Vol] 0.41 10*3/uL Normal <0.87 [facility] Comment on above: Order Comment: Speci men Type: BLOOD SPECIMENOrdering Facility: [facility] Address: [address] [place] [address] Performed By: #### 5 7021-8 ####[facility]ORATORYCLIA [id number] [address] [place] Monocytes/100 WBC (Bld) 4.0 % Normal A [facility] Comment on above: Order Comment: Speci men Type: BLOOD SPECIMENOrdering Facility: [facility] Address: [address] [place] [address] Performed By: #### 5 7021-8 ####[facility]ORATORYCLIA [id number] [place] [address] [place] Neutrophils (Bld) [#/Vol] 9.26 10*3/uL High 1.45-7.50 [facility] Comment on above: Order Comment: Speci men Type: BLOOD SPECIMENOrdering Facility: [facility] Address: [address] [place] [address] Performed By: #### 5 7021-8 ####[facility]ORATORYCLIA [id number] [address] [place] Neutrophils/100 WBC (Bld) 90.0 % Normal [facility] Comment on above: Order Comment: Speci men Type: BLOOD SPECIMENOrdering Facility: [facility] Address: [address] [place] [address] Performed By: #### 5 7021-8 ####[facility]ORATORYCLIA [id number] [place] [address] [place] Nucleated RBC (Bld) [#/Vol] 10*3/uL Normal <0.01 [facility] Comment on above: Order Comment: Speci men Type: BLOOD SPECIMENOrdering Facility: [facility] Address: [address] [place] [address] Performed By: #### 5 7021-8 ####[facility]ORATORYCLIA [id number] [address] Nucleated RBC/100 WBC (Bld) [Ratio] 0.0 /100 WBC Normal [facility] Comment on above: Order Comment: Speci men Type: BLOOD SPECIMENOrdering Facility: [facility] Address: [address] [place] [address] Performed By: #### 5 7021-8 ####[facility]ORATORYCLIA [id number] [address] Platelet mean volume (Bld) [Entitic vol] 10.6 fL Normal 9.0-12.7 [facility] Comment on above: Order Comment: Speci men Type: BLOOD SPECIMENOrdering Facility: [facility] Address: [address] [place] [address] Performed By: #### 5 7021-8 ####[facility]ORATORYCLIA [id number] [address] Platelets (Bld) [#/Vol] 108 10*3/uL Low 150-400 [facility] Comment on above: Order Comment: Speci men Type: BLOOD SPECIMENOrdering Facility: [facility] Address: [address] [place] [address] Result Comment: No c lot detected. Performed By: #### 5 7021-8 ####[facility]ATORYCLIA [id number] [address] Platelets Estimate (Bld) [#/Vol] Decreased Normal [facility] Comment on above: Order Comment: Speci men Type: BLOOD SPECIMENOrdering Facility: [facility] Address: [address] [place] [address] Performed By: #### 5 7021-8 ####[facility]ORATORYCLIA [id number] [address] RBC (Bld) [#/Vol] 3.85 10*6/uL Low 4.20-6.00 [facility] Comment on above: Order Comment: Speci men Type: BLOOD SPECIMENOrdering Facility: [facility] Address: [address] [place] [address] Performed By: #### 5 7021-8 ####[facility]ORATORYCLIA [id number] [address] RED CELL MORPH Reviewed: unremarkable Normal [facility] Comment on above: Order Comment: Speci men Type: BLOOD SPECIMENOrdering Facility: [facility] Address: [address] [place] [address] Performed By: #### 5 7021-8 ####[facility]ORATORYCLIA [id number] [address] WBC (Bld) [#/Vol] 10.29 10*3/uL Normal 3.70-11.00 [facility] Comment on above: Order Comment: Speci men Type: BLOOD SPECIMENOrdering Facility: [facility] Address: [address] [place] [address] Performed By: #### 5 7021-8 ####[facility] LABORATORYCLIA [id number] [address] ABD/PEL W IVCONon 05-15-[address] ABD/PEL W IVCON * * *Final Report* * * DATE OF EXAM: Feb 16 2025 8:33PM [facility] 0530 - CT ABD/PEL W [...] 8. Details above. 9. Follow-up as indicated. Dining Chair Seat Cushion Trimmer[facility] Transcribe Date/Time: Feb 16 2025 10:02P Dictated [...] DATE OF EXAM: Feb 16 2025 8:33PM [facility] 0504 - CT BRAIN WO [...] involving the major extra or intracranial arteries. Dining Chair Seat Cushion Trimmer[facility] Transcribe Date/Time: Feb 16 2025 9:23P Dictated by : BYRON SRINIVASAN MD This examination was interpreted and the report reviewed and electronically signed by: BYRON SRINIVASAN MD on Feb 16 2025 9:34PM EST [id number] Normal [facility] CT CHEST W IVCONon CT CHEST W IVCON * * *Final Report* * * DATE OF EXAM: Feb 16 2025 8:33PM [facility] 0539 - CT CHEST W [...] the gastroesophageal junction and should be advanced. Dining Chair Seat Cushion Trimmer: CECILIA Transcribe Date/Time: Feb 16 2025 9:56P Dictated by : ELLIOT ANGELA DO This examination was interpreted and the report reviewed and electronically signed by: ELLIOT ANGELA DO on Feb 16 2025 10:13PM EST [id number] Normal [facility] CTA HEAD W IVCONon CTA HEAD W IVCON * * *Final Report* * * DATE OF EXAM: Feb 16 2025 8:33PM [facility] 0022 - CTA HEAD W [...] involving the major extra or intracranial arteries. Dining Chair Seat Cushion Trimmer: CECILIA Transcribe Date/Time: Feb 16 2025 9:23P Dictated by : BYRON SRINIVASAN MD This examination was interpreted and the report reviewed and electronically signed by: BYRON SRINIVASAN MD on Feb 16 2025 9:34PM EST [id number] Normal [facility] CTA NECK W IVCONon CTA NECK W IVCON * * *Final Report* * * DATE OF EXAM: Feb 16 2025 8:33PM [facility] 0024 - CTA NECK W [...] involving the major extra or intracranial arteries. Dining Chair Seat Cushion Trimmer: CECILIA Transcribe Date/Time: Feb 16 2025 9:23P [...] Comment: Speci courtney Type: BLOOD SPECIMENOrdering Facility: [facility] Address: [address] [place] [address] Performed By: #### 2 4323-8, ####[facility] LABORATORYCLIA [id number] [address] STATES OF [facility] ALP [Catalytic activity/Vol] 286 U/L High 38-113 [facility] Comment on above: Order Comment: Speci men Type: BLOOD SPECIMENOrdering Facility: [facility] Address: [address] [place] [address] Performed By: #### 2 4323-, ####[facility] LABORATORYCLIA [id number] [place] [address] [place] ALT With P-5'-P [Catalytic activity/Vol] 17 U/L Normal 10-54 [facility] Comment on above: Order Comment: Speci men Type: BLOOD SPECIMENOrdering Facility: [facility] Address: [address] [place] [address] Performed By: #### 2 432-8, ####[facility]ORATORYCLIA [id number] [place] [address] [place] Anion gap [Moles/Vol] 14 mmol/L Normal 8-15 [facility] Comment on above: Order Comment: Speci men Type: BLOOD SPECIMENOrdering Facility: [facility] Address: [address] [place] [address] Performed By: #### 2 8, ####[facility]ORATORYCLIA [id number] [place] [address] [place] AST With P-5'-P [Catalytic activity/Vol] 31 U/L Normal 14-40 [facility] Comment on above: Order Comment: Speci men Type: BLOOD SPECIMENOrdering Facility: [facility] Address: [address] [place] [address] Performed By: #### 2 432-8, ####[facility]ORATORYCLIA [id number] [place] [address] [place] Bilirubin [Mass/Vol] 0.9 mg/dL Normal 0.2-1.3 [facility] Comment on above: Order Comment: Speci men Type: BLOOD SPECIMENOrdering Facility: [facility] Address: [address] [place] [address] Performed By: #### 2 432-8, ####[facility]ORATORYCLIA [id number] [place] [address] [place] Calcium [Mass/Vol] 7.7 mg/dL Low 8.5-10.2 [facility] Comment on above: Order Comment: Speci men Type: BLOOD SPECIMENOrdering Facility: [facility] Address: [address] [place] [address] Performed By: #### 2 432-8, ####[facility] LABORATORYCLIA [id number] [place] [address] [place] Chloride [Moles/Vol] 105 mmol/L Normal 98-107 [facility] Comment on above: Order Comment: Speci men Type: BLOOD SPECIMENOrdering Facility: [facility] Address: [address] [place] [address] Performed By: #### 2 4323-8, ####[facility] LABORATORYCLIA [id number] [place] [id number] [place] CO2 [Moles/Vol] 17 mmol/L Low 22-30 [facility] Comment on above: Order Comment: Speci men Type: BLOOD SPECIMENOrdering Facility: [facility] Address: [address] [place] [address] Performed By: #### 2 43238, ####[facility] [id number] [address] OF [facility] Creatinine [Mass/Vol] 2.35 mg/dL High 0.73-1.22 [facility] Comment on above: Order Comment: Speci men Type: BLOOD SPECIMENOrdering Facility: [facility] Address: [address] [place] [address] Performed By: #### 2 432-8, ####[facility]ORATORYCLIA [id number] [address] Creatinine and Glomerular filtration rate.predicted panel (S/P/Bld) 30 mL/min/1.73m??? Low >=60 [facility] Comment on above: Order Comment: Speci men Type: BLOOD SPECIMENOrdering Facility: [facility] Address: [address] [place] [address] Result Comment: Leena mated Glomerular Filtration Rate [...] actual GFR. Performed By: #### 2 4323-8, 22370-3 ####[facility]ORATORYCLIA [id number] [place] [address] [place] Glucose [Mass/Vol] 131 mg/dL High 74-99 [facility] Comment on above: Order Comment: Jg valdez Type: BLOOD SPECIMENOrdering Facility: [facility] Address: [address] [place] [address] Result Comment: The [place] Diabetes Association (ADA) provides guidance for cutoff [...] Standards of Medical Care in Diabetes 2016, [place] Diabetes Association. Diabetes Care. 2016.39(Suppl 1). Performed By: #### 2 4323-8, ####[facility]IA [id number] [place] [address] [place] Potassium [Moles/Vol] 4.4 mmol/L Normal 3.7-5.1 [facility] Comment on above: Order Comment: Jg valdez Type: BLOOD SPECIMENOrdering Facility: [facility] Address: [address] [place] [address] Performed By: #### 2 4323-8, ####[facility]ATORYCLIA [id number] [place] [id number] [place] Protein [Mass/Vol] 5.9 g/dL Low 6.3-8.0 [facility] Comment on above: Order Comment: Jg valdez Type: BLOOD SPECIMENOrdering Facility: [facility] Address: [address] [place] [address] Performed By: #### 2 4323-8, ####[facility]ATORYCLIA [id number] [place] [id number] [place] Sodium [Moles/Vol] 136 mmol/L Normal 136-144 [facility] Comment on above: Order Comment: Speci men Type: BLOOD SPECIMENOrdering Facility: [facility] Address: [address] [place] [address] Performed By: #### 2 4323-8, ####[facility]ATORYCLIA [id number] [place] [phone] [place] Urea nitrogen [Mass/Vol] 33 mg/dL High 9-24 [facility] Comment on above: Order Comment: Speci men Type: BLOOD SPECIMENOrdering Facility: [facility] Address: [address] [place] [address] Performed By: #### 2 4323-8, ####[facility]ATORYCLIA [id number] [address] [place] ECG COMPLETEon 02-16-2025 ECG COMPLETE Ventricular Rate : 120 BPM Atrial Rate : 120 BPM P-R Interval : 152 ms QRS Duration : 88 ms Q-T Interval : 306 ms QTC Calculation(Bazett) : 432 ms Calculated P [place] : 35 degrees Calculated R [place] : 6 degrees Calculated T [place] : 45 degrees SINUS TACHYCARDIA POSSIBLE INFERIOR INFARCT , AGE UNDETERMINED CANNOT RULE OUT ANTERIOR INFARCT , AGE UNDETERMINED ABNORMAL ECG NO PREVIOUS ECGS AVAILABLE Confirmed by MAYKEL MANJARREZ MD ([id number]) on 02/20/2025 2:34:23 PM NAME : ANMOL REYNOLDS PID : [id number] : 1960 Gender : Male Race : ORD : [id number] Procedure Date : Feb 16 2025 19:16:55 Edit Date : Feb 20 2025 14:34:24 Diagnosis: SINUS TACHYCARDIA POSSIBLE INFERIOR INFARCT , AGE UNDETERMINED CANNOT RULE OUT ANTERIOR INFARCT , AGE UNDETERMINED ABNORMAL ECG NO PREVIOUS ECGS AVAILABLE Confirmed by MAYKEL MANJARREZ MD ([id number]) on 02/20/2025 2:34:23 PM Test Reason : Chest Pain Location : 4 : AKED EM Overread By : MAYKEL MANJARREZ MD Edited By : MAYKEL MANJARREZ MD Referred By : , Acquired by : LELAND AUGUST [facility] ED NOTEon 02-16-2025 ED NOTE HNO ID: [id number] Author: ROZ MIKE RN Service: ? Author Type: Registered Nurse Type: ED Notes Filed: 02/16/2025 23:23 Note Text: Icu resident at bedside talked with this RN about NG tube, this RN told to leave it in place for this time until further notice as it is not needed for anything significant at this time. [facility] ED NOTE HNO ID: [id number] Author: ROZ MIKE RN Service: ? Author Type: Registered Nurse Type: ED Notes Filed: 02/16/2025 21:56 Note Text: NG in right nare advanced as much as possible, per KUB, the NG is still not in stomach. MICU resident to assess when at bedside. [facility] ED NOTE HNO ID: [id number] Author: ROZ MIKE RN Service: ? Author Type: Registered Nurse Type: ED Notes Filed: 02/16/2025 22:06 Note Text: Mepilex applied to coccyx to prevent further skin berakdown. [facility] ED NOTE HNO ID: [id number] Author: ROZ MIKE RN Service: ? Author Type: Registered Nurse Type: ED Notes Filed: 02/16/2025 19:46 Note Text: Xray called at this time to confirm placement. [facility] ED NOTE HNO ID: [id number] Author: ROZ MIKE RN Service: ? Author Type: Registered Nurse Type: ED Notes Filed: 02/16/2025 19:44 Note Text: 100 mcg of fentanyl being administered at this time by LIBRADO Escamilla [facility] ED NOTE HNO ID: [id number] Author: ROZ MIKE RN Service: ? Author Type: Registered Nurse Type: ED Notes Filed: 02/16/2025 19:44 Note Text: Oxygen improved to 97%. [facility] ED NOTE HNO ID: [id number] Author: ROZ MIKE RN Service: ? Author Type: Registered Nurse Type: ED Notes Filed: 02/16/2025 19:44 Note Text: 7.5 tube placed at this time, bilateral breath sounds auscultated, ETCO2 31. 24 at the teeth. Pt oxygen 71% and HR 132. [facility] ED NOTE HNO ID: [id number] Author: ROZ MIKE RN Service: ? Author Type: Registered Nurse Type: ED Notes Filed: 02/16/2025 19:40 Note Text: 100 of rocuronium given at this time. [facility] ED NOTE HNO ID: [id number] Author: ROZ MIKE RN Service: ? Author Type: Registered Nurse Type: ED Notes Filed: 02/16/2025 19:39 Note Text: 30 of etomidate given at this time. [facility] ED NOTE HNO ID: [id number] Author: ROZ MIKE RN Service: ? Author Type: Registered Nurse Type: ED Notes Filed: 02/16/2025 19:38 Note Text: Levo tubing was clamped, levo decreased to 7 again at this time. [facility] ED NOTE HNO ID: [id number] Author: ROZ MIKE RN Service: ? Author Type: Registered Nurse Type: ED Notes Filed: 02/16/2025 19:36 Note Text: Preparing to intubate patient, using 30 of etomidate for intubation. [facility] ED NOTE HNO ID: [id number] Author: ROZ MIKE RN Service: ? Author Type: Registered Nurse Type: ED Notes Filed: 02/16/2025 19:36 Note Text: Levo increased to 10 at this time [facility] ED NOTE HNO ID: [id number] Author: ROZ MIKE RN Service: ? Author Type: Registered Nurse Type: ED Notes Filed: 02/16/2025 19:32 Note Text: Levophed started at 7 at this time. [facility] ED NOTE HNO ID: [id number] Author: ROZ MIKE RN Service: ? Author Type: Registered Nurse Type: ED Notes Filed: 02/16/2025 19:32 Note Text: Patient opening eyes at this time, but not following commands at this time. [facility] ED NOTE HNO ID: [id number] Author: ROZ MIKE RN Service: ? Author Type: Registered Nurse Type: ED Notes Filed: 02/16/2025 19:22 Note Text: Line placed in RAC was placed in artery, line removed. Pressure applied, no medications were administered through this access point. [facility] ED NOTE HNO ID: [id number] Author: ROZ MIKE RN Service: ? Author Type: Registered Nurse Type: ED Notes Filed: 02/16/2025 19:16 Note Text: Patient BECKIE from the [facility] [place] unresponsive. NO responsive to verbal stimuli, only to painful. Pt LKW was 1700, found unresponsive. [facility] ED NOTE HNO ID: [id number] Author: ROZ MIKE RN Service: ? Author Type: Registered Nurse Type: ED Notes Filed: 02/16/2025 19:15 Note Text: [facility] ED NOTE HNO ID: [id number] Author: ROZ MIKE RN Service: ? Author Type: Registered Nurse Type: ED Notes Filed: 02/16/2025 19:25 Note Text: 2L up at this time. 1 L LR and 1L NS. [facility] ED NOTE HNO ID: [id number] Author: ROZ MIKE RN Service: ? Author Type: Registered Nurse Type: ED Notes Filed: 02/16/2025 19:36 Note Text: Patient placed on zoll pads at this time [facility] ED PROV NOTEon 02-16-2025 ED PROV NOTE HNO ID: [id number] Author: KATHRIN MEHTA MD Service: Emergency Medicine [...] with the resident. ED Course as of 02/17/2528 Kathrin Mehta's Documentation Fabiola February 16, 20251952 Patient here via EMS from group home for evaluation of hypotension and altered [...] Ruthie Richardson DO Clinical Impressions as of 02/17/2528 Septic shock (HCC) Urinary tract infection associated [...] History Patient presents with: Unresponsive: [facility]. Pt normally AANDOx4, but had a spinal cord injury resulting in need for nursing facility. Pt LKW was 1700 today. Arrives only arousable to pain, unable to follow commands. Arrives pale, on NRB, hypotensive, and tachycardic. Patient is a 64-year-old male who presents from [facility] for being unresponsive. Patient is a history [...] Center HISTORY PHYSICALon HISTORY PHYSICAL HNO ID: [id number] Author: HOWARD GAMA MD Service: Critical Care Author Type: Physician Type: H&P Filed: 02/17/2025 02:44 Note Text: [facility] STAFF PHYSICIAN NOTE OF PERSONAL INVOLVEMENT [...] with extensive medical hx who presented from group home for AMS. In the ED, was [...] [facility] DATE of SERVICE: 02/16/2025 Normal [facility] HISTORY PHYSICAL HNO ID: [id number] Author: HOWARD GAMA MD Service: Critical Care [...] intubation. The patient initially presented to the [facility] ED on February 16, 2025 after being found unresponsive at his long-term facility, last known well 1700 today. ED [...] Lactate (POCT) 2.4 ! UA: 02/16/2025 Color Stonewall ! Clarity Dense Turbid ! Glucose, Urine Negative Bilirubin, Urine Negative Ketones, Urine Negative Specific [place], Ur 1.037 (H) Hemoglobin/Blood,Ur 3+ ! pH, [...] included)... Normal [facility] Magnesium SerPl-mCncon 02-16 Magnesium [Mass/Vol] 1.6 mg/dL Low 1.7-2.3 [facility] Comment on above: Order Comment: Speci men Type: BLOOD SPECIMENOrdering Facility: [facility] Address: [facility] [place] [id number] Performed By: #### 2 4323-8, 33239-1 ####[facility]ATORYCLIA [id number] [place] [phone] [place] Urinalysis complete panel (U )on 02-16-2025 Bacteria LM.HPF (Urine sed) [#/Area] Many Abnormal None Seen [facility] Comment on above: Order Comment: Speci men Type: URINE SPECIMENOrdering Facility: [facility] Address: [address] [place] [address] Performed By: #### 2 4356-8, 630-4 ####[facility]ORATORYCLIA [id number] [place], [place] [address] [place] [address] [place] [facility] Bilirubin Ql (U) Negative Normal Negative [facility] Comment on above: Order Comment: Speci men Type: URINE SPECIMENOrdering Facility: [facility] Address: [address] [place] [address] Performed By: #### 2 4356-8, 630-4 ####[facility]ATORYCLIA [id number] [address] Clarity (Unsp spec) Dense Turbid Abnormal Clear [facility] Comment on above: Order Comment: Speci men Type: URINE SPECIMENOrdering Facility: [facility] Address: [address] [place] [address] Performed By: #### 2 4356-8, 630-4 ####[facility] [id number] [address] Color (U) Stonewall Abnormal yellow [facility] Comment on above: Order Comment: Speci men Type: URINE SPECIMENOrdering Facility: [facility] Address: [address] [place] [address] Performed By: #### 2 4356-8, 630-4 ####[facility]ATORYCLIA [id number] [address] Epithelial cells LM.HPF (Urine sed) [#/Area] Moderate Abnormal None [facility] Comment on above: Order Comment: Speci men Type: URINE SPECIMENOrdering Facility: [facility] Address: [address] [place] [address] Performed By: #### 2 4356-8, 630-4 ####[facility]ORYCLIA [id number] [address] Glucose Test strip (U) [Mass/Vol] Negative Normal Trace, Negative [facility] Comment on above: Order Comment: Speci men Type: URINE SPECIMENOrdering Facility: [facility] Address: [address] [place] [address] Performed By: #### 2 4356-8, 630-4 ####[facility]ATORYCLIA [id number] [place] [address] [place] Hemoglobin Ql (U) 3+ Abnormal Negative, Trace [facility] Comment on above: Order Comment: Speci men Type: URINE SPECIMENOrdering Facility: [facility] Address: [address] [place] [address] Performed By: #### 2 4356-8, 630-4 ####[facility]ORYCLIA [id number] [address] STATES OF [facility] Ketones Ql (U) Negative Normal Negative, Trace [facility] Comment on above: Order Comment: Speci men Type: URINE SPECIMENOrdering Facility: [facility] Address: [address] [place] [address] Performed By: #### 2 4356-8, 630-4 ####[facility]ATORYCLIA [id number] [address] Leukocyte esterase Test strip Ql (U) 500 Da/uL Abnormal Negative, 25 Da/uL [facility] Comment on above: Order Comment: Speci men Type: URINE SPECIMENOrdering Facility: [facility] Address: [address] [place] [address] Performed By: #### 2 4356-8, 630-4 ####[facility]ORYCLIA [id number] [address] [place] Nitrite Ql (U) Negative Normal Negative [facility] Comment on above: Order Comment: Speci men Type: URINE SPECIMENOrdering Facility: [facility] Address: [address] [place] [address] Performed By: #### 2 4356-8, 630-4 ####[facility]ORYCLIA [id number] [address] STATES [facility] pH (U) 6.5 [pH] Normal 5.0-8.0 [facility] Comment on above: Order Comment: Speci men Type: URINE SPECIMENOrdering Facility: [facility] Address: [address] [place] [address] Performed By: #### 2 4356-8, 630-4 ####[facility]ATORYCLIA [id number] [address] STATES [facility] Protein (U) [Mass/Vol] 2+ Abnormal Trace , Negative [facility] Comment on above: Order Comment: Speci men Type: URINE SPECIMENOrdering Facility: [facility] Address: [address] [place] [address] Performed By: #### 2 4356-8, 630-4 ####[facility]ATORYCLIA [id number] [address] STATES [facility] RBC LM.HPF (Urine sed) [#/Area] /[HPF] Abnormal 0-3 /HPF [facility] Comment on above: Order Comment: Speci men Type: URINE SPECIMENOrdering Facility: [facility] Address: [address] [place] [address] Performed By: #### 2 4356-8, 630-4 ####[facility]ATORYCLIA [id number] [address] OF [place] Specific gravity (U) [Rel density] 1.037 High 1.005-1.030 [facility] Comment on above: Order Comment: Speci men Type: URINE SPECIMENOrdering Facility: [facility] Address: [address] [place] [address] Performed By: #### 2 4356-8, 630-4 ####[facility]ORYCLIA [id number] [address] Urobilinogen Ql (U) Normal Normal Normal [facility] Comment on above: Order Comment: Speci men Type: URINE SPECIMENOrdering Facility: [facility] Address: [address] [place] [address] Performed By: #### 2 4356-8, 630-4 ####[facility]ATORYCLIA [id number] [place] [address] [facility] WBC LM.HPF (Urine sed) [#/Area] /[HPF] Abnormal 0-5 /HPF [facility] Comment on above: Order Comment: Speci men Type: URINE SPECIMENOrdering Facility: [facility] Address: [facility] [place] [address] Performed By: #### 2 4356-8, 630-4 ####[facility]ATORYCLIA [id number] [place] [address] [facility] XR ABDOMEN 1V SUPINEon 02-16 XR [...] EKG leads. No dilated gas-filled bowel loops. Dining Chair Seat Cushion Trimmer: CECILIA Transcribe Date/Time: Feb 16 2025 10:58P [...] abundance of colonic stool. Other details above. Dining Chair Seat Cushion Trimmer: CECILIA Transcribe Date/Time: Feb 16 2025 9:11P Dictated [...] in the distal esophagus, suggest further advancement. Dining Chair Seat Cushion Trimmer: CECILIA Transcribe Date/Time: Feb 16 2025 8:45P Dictated by : PATY US MD This examination was interpreted and the report reviewed and electronically signed by: PATY US MD on Feb 16 2025 8:47PM EST [id number] Normal [facility] Bilirubin Test strip Ql (U)O rdered By: Tab Dupont on 02-15-2025 Bilirubin Ql (U) Negative Negative [facility] Ketones Test strip Ql (U)Ord ered By: Tab Dupont on 02-15-2025 Ketones Ql (U) Negative Negative [facility] Microscopic analysis of urin e for red blood cells (RBC)Ordered By: Tab Dupont on 02-15-2025 Microscopic analysis of urine for red blood cells (RBC) 10-25 SEEN /hpf 0-5 [facility] Mucus LM Ql (Urine sed)Order ed By: Tab Dupont on 02-15-2025 Mucus Ql (Urine sed) 0 SEEN /hpf [facility] Nitrite Test strip Ql (U)Ord ered By: Tab Dupont on 02-15-2025 Nitrite Ql (U) Positive High Negative [facility] Protein Test strip Ql (U)Ord ered By: Tab Dupont on 02-15-2025 Protein Ql (U) 100 mg/dl High Negative [facility] Squamous epithelial cells de tection in urine sediment by light microscopyOrdered By: Tab Dupont on 02-15-2025 Epithelial cells.squamous LM Ql (Urine sed) 0 SEEN /hpf 0-5 [facility] Urinalysis, Completeon 02-15 RBC 10-25 SEEN Normal 0-5 [facility] Comment on above: Order Comment: 301.2 Performed By: #### L 100.0500, L500.4050, L501.6710, L101.9900 #### [facility] [address] [place], [address] BACTERIA 2+ /hpf Normal None Seen [facility] Comment on above: Order Comment: 301.2 Performed By: #### L 100.0500, L500.4050, L501.6710, L101.9900 #### [facility] [address] [place], [address] WBC 25-50 SEEN Normal 0-5 [facility] Comment on above: Order Comment: 301.2 Performed By: #### L 100.0500, L500.4050, L501.6710, L101.9900 #### [facility] [address] [place], [address] EPI,SQUAMOUS 0 SEEN Normal 0-5 [facility] Comment on above: Order Comment: 301.2 Performed By: #### L 100.0500, L500.4050, L501.6710, L101.9900 #### [facility] [address] [place], [address] Mucus Ql (Urine sed) 0 SEEN Normal [facility] Comment on above: Order Comment: 301.2 Performed By: #### L 100.0500, L500.4050, L501.6710, L101.9900 #### [facility] [address] [place], [address] Urine clarityOrdered By: Regino Dupont on 02-15-2025 Clarity (U) Sl. Cloudy Clear [facility] Urine color determinationOrd ered By: Tab Dupont on 02-15-2025 Color (U) Yellow Yellow [facility] Urine cultureOrdered By: Regino Dupont on 02-15-2025 Bacteria identified Cx Nom (U) Citrobacter freundii Abnormal [facility] Bacteria identified Cx Nom (U) Providencia stuartii Abnormal [facility] Bacteria identified Cx Nom (U) Proteus mirabilis Abnormal [facility] Bacteria identified Cx Nom (U) Enterococcus faecalis Abnormal [facility] Urine glucose detectionOrder ed By: Tab Dupont on 02-15-2025 Glucose Ql (U) Normal mg/dl Normal [facility] Urine leukocyte esterase det ection by dipstickOrdered By: Tab Dupont on 02-15-2025 Leukocyte esterase Test strip Ql (U) 500 /ul High Negative [facility] Urine pHOrdered By: Tab cordova on 02-15-2025 pH (U) 6.5 [pH] 5.0 - 8.0 [facility] Urine sediment bacteria coun t by microscopy (number/high power field)Ordered By: Tab Dupont on 02-15-2025 Bacteria LM.HPF (Urine sed) [#/Area] 2 /[HPF] None Seen [facility] Urine specific gravity measu rementOrdered By: Tab Dupont on 02-15-2025 Specific gravity (U) [Rel density] 1.010 1.002-1.030 [facility] Urine urobilinogen measureme ntOrdered By: Tab Dupont on 02-15-2025 Urobilinogen Ql (U) Normal mg/dl Normal [facility] White blood cell countOrdere d By: Tab Dpuont on 02-15-2025 White blood cell count 25-50 SEEN /hpf 0-5 [facility] CNOVon 01-31-2025 CNOV Office Visit (PLWDMR ) ANMOL REYNOLDS ([id number]) 1960 M Date Time Provider Department 01/31/25 [...] in motorized wheelchair Home Care Company/Nursing Facility: [facility] Consent captured for debridement per (Provider) and good until Special Instructions (for example, patient stands at the bedside for exam/dressing): bed Anticoagulant Therapy: aspirin Living Situation (ie... Apartment, house, [facility]): sanctuary Who lives with patient: facility Who [...] BY PROVIDER: Anesthetic Used: N/A applied per data governance consultant # 1 AND 2 Other procedure: Specimen [...] alginate AG Covered and secured with: 4x[employer] [place] [employer] Other: COMPRESSION: N/A DME: Prism order date __ DME: [employer] , PH: [phone] SPECIAL NEEDS: Coordination of care N/A Emotional support N/A OR set-up N/A Orthopaedic Doctor N/A Incontinence needs N/A DISCHARGED in stable condition to: facility in motorized wheelchair PLAN/ORDERS: - [facility] to see Milad Goodson MD in 6 weeks. - Blood work ordered please go to any [facility] lab. - Please send patient with medication list at next appointment. - Continue aggressive nutritional support to assist wound healing - CAT Scans AND MRI need to be scheduled through [facility]. Call [phone].(If applicable) EDUCATION: The patient/family was instructed how [...] the p (more content not included)... Normal [facility] Anion gap in Serum or Plasma Ordered By: Tab Dupont on 01-09-2025 Anion gap [Moles/Vol] 12 mmol/L 02-16 [facility] BUN/creatinine ratioOrdered By: Tab Dupont on 01-09-2025 Urea nitrogen/Creatinine [Mass ratio] 17.9 mg/mg 07-24 [facility] Basic Metabolic Profile (BMP )on 01-09-2025 BUN/CRE 17.9 RATIO Normal 07-24 [facility] Comment on above: Order Comment: 301.2 Performed By: #### L 100.0500, L500.4050, L501.6710, L101.9900 #### [facility] [address] [place], [address] Calcium [Mass/Vol] 8.7 mg/dL Normal 7.6-11.0 [facility] Comment on above: Order Comment: 301.2 Performed By: #### L 100.0500, L500.4050, L501.6710, L101.9900 #### [facility] [address] [place], [address] Chloride [Moles/Vol] 110 mmol/L High 98-108 [facility] Comment on above: Order Comment: 301.2 Performed By: #### L 100.0500, L500.4050, L501.6710, L101.9900 #### [facility] [address] [place], [address] CO2 [Moles/Vol] 19.2 mmol/L Low 21.0-32.0 [facility] Comment on above: Order Comment: 301.2 Performed By: #### L 100.0500, L500.4050, L501.6710, L101.9900 #### [facility] [address] [place], [address] Creatinine [Mass/Vol] 0.42 mg/dL Low 0.70-1.20 [facility] Comment on above: Order Comment: 301.2 Performed By: #### L 100.0500, L500.4050, L501.6710, L101.9900 #### [facility] [address] [place], [address] GAP 12 Normal 5-15 [facility] Comment on above: Order Comment: 301.2 Performed By: #### L 100.0500, L500.4050, L501.6710, L101.9900 #### [facility] [address] [place], [address] GFR/1.73 sq M.predicted among non-blacks MDRD (S/P/Bld) [Vol rate/Area] 121 mL/min/{1.73_m2} Normal >60 [facility] Comment on above: Order Comment: 301.2 Result Comment: mL/m in/1.73m2 CKD-EPI Creatinine Equation (2020) Performed By: #### L 100.0500, L500.4050, L501.6710, L101.9900 #### [facility] [address] [place], [address] Glucose [Mass/Vol] 120 mg/dL High 70-99 [facility] Comment on above: Order Comment: 301.2 Performed By: #### L 100.0500, L500.4050, L501.6710, L101.9900 #### [facility] [address] [place], [address] Potassium [Moles/Vol] 4.0 mmol/L Normal 3.3-5.1 [facility] Comment on above: Order Comment: 301.2 Result Comment: Hemo lysis present, Results??could be affected. ?? Performed By: #### L 100.0500, L500.4050, L501.6710, L101.9900 #### [facility] [address] [place], [address] Sodium [Moles/Vol] 141 mmol/L Normal 133-145 [facility] Comment on above: Order Comment: 301.2 Performed By: #### L 100.0500, L500.4050, L501.6710, L101.9900 #### [facility] [address] [place], [address] Urea nitrogen [Mass/Vol] 8 mg/dL Normal 4-19 [facility] Comment on above: Order Comment: 301.2 Performed By: #### L 100.0500, L500.4050, L501.6710, L101.9900 #### [facility] [address] [place], [address] CBC-Complete Blood Cnt No Di ffon 01-09-2025 Erythrocyte distribution width (RBC) [Ratio] 13.9 % Normal 11.6-14.6 [facility] Comment on above: Order Comment: 301.2 Performed By: #### L 100.0500, L500.4050, L501.6710, L101.9900 #### [facility] [address] [place], [address] Hematocrit (Bld) [Volume fraction] 39.3 % Low 40-54 [facility] Comment on above: Order Comment: 301.2 Performed By: #### L 100.0500, L500.4050, L501.6710, L101.9900 #### [facility] [address] [place], [address] Hemoglobin (Bld) [Mass/Vol] 13.1 g/dL Normal 13.0-16.5 [facility] Comment on above: Order Comment: 301.2 Performed By: #### L 100.0500, L500.4050, L501.6710, L101.9900 #### [facility] [address] [place], [address] MCH (RBC) [Entitic mass] 30.9 pg Normal 27.0-32.0 [facility] Comment on above: Order Comment: 301.2 Performed By: #### L 100.0500, L500.4050, L501.6710, L101.9900 #### [facility] [address] [place], [address] MCHC (RBC) [Mass/Vol] 33.3 g/dL Normal 32-36 [facility] Comment on above: Order Comment: 301.2 Performed By: #### L 100.0500, L500.4050, L501.6710, L101.9900 #### [facility] [address] [place], [address] MCV (RBC) [Entitic vol] 92.7 fL Normal 80-94 [facility] Comment on above: Order Comment: 301.2 Performed By: #### L 100.0500, L500.4050, L501.6710, L101.9900 #### [facility] [address] [place], [address] Platelet mean volume (Bld) [Entitic vol] 11.1 fL Normal 6.2-12.0 [facility] Comment on above: Order Comment: 301.2 Performed By: #### L 100.0500, L500.4050, L501.6710, L101.9900 #### [facility] [address] [place], [address] Platelets (Bld) [#/Vol] 255 10*3/uL Normal 150-450 [facility] Comment on above: Order Comment: 301.2 Performed By: #### L 100.0500, L500.4050, L501.6710, L101.9900 #### [facility] [address] [place], [address] RBC (Bld) [#/Vol] 4.24 10*6/uL Low 4.6-6.2 [facility] Comment on above: Order Comment: 301.2 Performed By: #### L 100.0500, L500.4050, L501.6710, L101.9900 #### [facility] [address] [place], [address] RDW SD 47.3 fl High 35.1-43.9 [facility] Comment on above: Order Comment: 301.2 Performed By: #### L 100.0500, L500.4050, L501.6710, L101.9900 #### [facility] [address] [place], [address] WBC (Bld) [#/Vol] 7.1 10*3/uL Normal 4.4-11.0 [facility] Comment on above: Order Comment: 301.2 Performed By: #### L 100.0500, L500.4050, L501.6710, L101.9900 #### [facility] [address] [place], [address] Carbon dioxide, total [Moles /volume] in Central venous bloodOrdered By: Tab Dupont on 01-09-2025 CO2 [Moles/Vol] 19.2 mmol/L Low 21.0-32.0 [facility] Chloride assayOrdered By: Vinh Lehman on 01-09-2025 Chloride [Moles/Vol] 110 mmol/L High 98-108 [facility] Erythrocyte distribution wid th ratioOrdered By: Tab Dupont on 01-09-2025 Erythrocyte distribution width (RBC) [Ratio] 13.9 % 11.6-14.6 [facility] Erythrocyte distribution wid th standard deviationOrdered By: Tab Dupont on 01-09-2025 Erythrocyte distribution width (RBC) [Ratio] 47.3 fl High 35.1-43.9 [facility] Glomerular filtration rate ( GFR) estimation/1.73 sq m using serum, plasma, or whole bOrdered By: Tab Dupont on 01-09-2025 GFR/1.73 sq M.predicted among non-blacks MDRD (S/P/Bld) [Vol rate/Area] 121 mL/min/{1.73_m2} >60 [facility] Comment on above: mL/min/1.73m2 CKD-EP I Creatinine Equation (2020) Hematocrit Auto (Bld) [Volum e fraction]Ordered By: Tab Dupont on 01-09-2025 Hematocrit (Bld) [Volume fraction] 39.3 % Low 40-54 [facility] Hemoglobin measurementOrdere d By: Tab Dupont on 01-09-2025 Hemoglobin (Bld) [Mass/Vol] 13.1 g/dL 13.0-16.5 [facility] MCV (mean corpuscular volume ) determinationOrdered By: Tab Dupont on 01-09-2025 MCV (RBC) [Entitic vol] 92.7 fL 80-94 [facility] Mean corpuscular hemoglobin (MCH) determinationOrdered By: Tab Dupont on 01-09-2025 MCH (RBC) [Entitic mass] 30.9 pg 27.0-32.0 [facility] Mean corpuscular hemoglobin concentration (MCHC) determinationOrdered By: Tab Dupont on 01-09-2025 MCHC (RBC) [Mass/Vol] 33.3 g/dL 32-36 [facility] Mean platelet volume determi nationOrdered By: Tab Dupont on 01-09-2025 Platelet mean volume (Bld) [Entitic vol] 11.1 fL 6.2-12.0 [facility] Platelet countOrdered By: Vinh Lehman on 01-09-2025 Platelets (Bld) [#/Vol] 255 10*3/uL 150-450 [facility] Potassium measurement (mass/ volume)Ordered By: Tab Dupont on 01-09-2025 Potassium (Unsp spec) [Mass/Vol] 4.0 mmol/L 3.3-5.1 [facility] Comment on above: Hemolysis present, R esults could be affected. RBC Auto (Bld) [#/Vol]Ordere d By: Tab Dupont on 01-09-2025 RBC (Bld) [#/Vol] 4.24 10*6/uL Low 4.6-6.2 [facility] Serum creatinine measurement (mass/volume)Ordered By: Tab Dupont on 01-09-2025 Creatinine [Mass/Vol] 0.42 mg/dL Low 0.70-1.20 [facility] Serum glucose measurement (m ass/volume)Ordered By: Tab Dupont on 01-09-2025 Glucose [Mass/Vol] 120 mg/dL High 70-99 [facility] Serum or plasma calcium randall urement (mass/volume)Ordered By: Tab Dupont on 01-09-2025 Calcium [Mass/Vol] 8.7 mg/dL 7.6-11.0 [facility] Serum or plasma urea nitroge n measurement (mass/volume)Ordered By: Tab Dupont on 01-09-2025 Urea nitrogen [Mass/Vol] 8 mg/dL 4-19 [facility] Sodium levelOrdered By: Omar Dupont on 01-09-2025 Sodium [Moles/Vol] 141 mmol/L 133-145 [facility] White blood cell (WBC) count Ordered By: Tab Dupont on 01-09-2025 WBC (Bld) [#/Vol] 7.1 10*3/uL 4.4-11.0 [facility] MRI SACRUM/COCCYX WO/W IVCON on 01-04-2025 MRI SACRUM/COCCYX WO/W IVCON * * *Final Report* * * DATE OF EXAM: Jan 04 2025 9:45AM [facility] 0236 - MRI SACRUM/COCCYX WO/W IVCON / [...] the adjacent S5 segment of the sacrum. Dining Chair Seat Cushion Trimmer: CECILIA Transcribe Date/Time: Jan 06 2025 1:16P Dictated by : COLE SHIPMAN DO This examination was interpreted and the report reviewed and electronically signed by: COLE SHIPMAN DO on Jan 06 2025 1:36PM EST [id number] Normal [facility] Anion gap in Serum or Plasma Ordered By: Tab Dupont on 12-07-2024 Anion gap [Moles/Vol] 10 mmol/L - [facility] BUN/creatinine ratioOrdered By: Tab Dupont on 12-07-2024 Urea nitrogen/Creatinine [Mass ratio] 20.1 mg/mg High - [facility] Basic Metabolic Profile (BMP )on 12-07-2024 BUN/CRE 20.1 RATIO High [facility] Comment on above: Order Comment: 301.2 Performed By: #### L 100.0500, L500.4050, L501.6710, L101.9900 #### [facility] [address] [place], [address] Calcium [Mass/Vol] 8.6 mg/dL Normal 7.6-11.0 [facility] Comment on above: Order Comment: 301.2 Performed By: #### L 100.0500, L500.4050, L501.6710, L101.9900 #### [facility] [address] [place], [address] Chloride [Moles/Vol] 104 mmol/L Normal 98-108 [facility] Comment on above: Order Comment: 301.2 Performed By: #### L 100.0500, L500.4050, L501.6710, L101.9900 #### [facility] [address] [place], [address] CO2 [Moles/Vol] 21.3 mmol/L Normal 21.0-32.0 [facility] Comment on above: Order Comment: 301.2 Performed By: #### L 100.0500, L500.4050, L501.6710, L101.9900 #### [facility] [address] [place], [address] Creatinine [Mass/Vol] 0.47 mg/dL Low 0.70-1.20 [facility] Comment on above: Order Comment: 301.2 Performed By: #### L 100.0500, L500.4050, L501.6710, L101.9900 #### [facility] [address] [place], [address] GAP 10 Normal 5-15 [facility] Comment on above: Order Comment: 301.2 Performed By: #### L 100.0500, L500.4050, L501.6710, L101.9900 #### [facility] [address] [place], [address] GFR/1.73 sq M.predicted among non-blacks MDRD (S/P/Bld) [Vol rate/Area] 117 mL/min/{1.73_m2} Normal >60 [facility] Comment on above: Order Comment: 301.2 Result Comment: mL/m in/1.73m2 CKD-EPI Creatinine Equation (2020) Performed By: #### L 100.0500, L500.4050, L501.6710, L101.9900 #### [facility] [address] [place], [address] Glucose [Mass/Vol] 194 mg/dL High 70-99 [facility] Comment on above: Order Comment: 301.2 Performed By: #### L 100.0500, L500.4050, L501.6710, L101.9900 #### [facility] [address] [place], [address] Potassium [Moles/Vol] 4.3 mmol/L Normal 3.3-5.1 [facility] Comment on above: Order Comment: 301.2 Performed By: #### L 100.0500, L500.4050, L501.6710, L101.9900 #### [facility] [address] [place], [address] Sodium [Moles/Vol] 136 mmol/L Normal 133-145 [facility] Comment on above: Order Comment: 301.2 Performed By: #### L 100.0500, L500.4050, L501.6710, L101.9900 #### [facility] [address] [place], [address] Urea nitrogen [Mass/Vol] 9 mg/dL Normal 4-19 [facility] Comment on above: Order Comment: 301.2 Performed By: #### L 100.0500, L500.4050, L501.6710, L101.9900 #### [facility] [address] [place], [address] CBC-Complete Blood Cnt No Di ffon 12-07-2024 Erythrocyte distribution width (RBC) [Ratio] 14.0 % Normal 11.6-14.6 [facility] Comment on above: Order Comment: 301.2 Performed By: #### L 100.0500, L500.4050, L501.6710, L101.9900 #### [facility] [address] [place], [address] Hematocrit (Bld) [Volume fraction] 38.2 % Low 40-54 [facility] Comment on above: Order Comment: 301.2 Performed By: #### L 100.0500, L500.4050, L501.6710, L101.9900 #### [facility] [address] [place], [address] Hemoglobin (Bld) [Mass/Vol] 12.8 g/dL Low 13.0-16.5 [facility] Comment on above: Order Comment: 301.2 Performed By: #### L 100.0500, L500.4050, L501.6710, L101.9900 #### [facility] [address] [place], [address] MCH (RBC) [Entitic mass] 30.9 pg Normal 27.0-32.0 [facility] Comment on above: Order Comment: 301.2 Performed By: #### L 100.0500, L500.4050, L501.6710, L101.9900 #### [facility] [address] [place], [address] MCHC (RBC) [Mass/Vol] 33.5 g/dL Normal 32-36 [facility] Comment on above: Order Comment: 301.2 Performed By: #### L 100.0500, L500.4050, L501.6710, L101.9900 #### [facility] [address] [place], [address] MCV (RBC) [Entitic vol] 92.3 fL Normal 80-94 [facility] Comment on above: Order Comment: 301.2 Performed By: #### L 100.0500, L500.4050, L501.6710, L101.9900 #### [facility] [address] [place], [address] Platelet mean volume (Bld) [Entitic vol] 10.5 fL Normal 6.2-12.0 [facility] Comment on above: Order Comment: 301.2 Performed By: #### L 100.0500, L500.4050, L501.6710, L101.9900 #### [facility] [address] [place], [address] Platelets (Bld) [#/Vol] 241 10*3/uL Normal 150-450 [facility] Comment on above: Order Comment: 301.2 Performed By: #### L 100.0500, L500.4050, L501.6710, L101.9900 #### [facility] [address] [place], [address] RBC (Bld) [#/Vol] 4.14 10*6/uL Low 4.6-6.2 [facility] Comment on above: Order Comment: 301.2 Performed By: #### L 100.0500, L500.4050, L501.6710, L101.9900 #### [facility] [address] [place], [address] RDW SD 47.9 fl High 35.1-43.9 [facility] Comment on above: Order Comment: 301.2 Performed By: #### L 100.0500, L500.4050, L501.6710, L101.9900 #### [facility] [address] [place], [place], [id number] WBC (Bld) [#/Vol] 6.6 10*3/uL Normal 4.4-11.0 [facility] Comment on above: Order Comment: 301.2 Performed By: #### L 100.0500, L500.4050, L501.6710, L101.9900 #### [facility] [address] [place], [place], [id number] Carbon dioxide, total [Moles /volume] in Central venous bloodOrdered By: Tab Dupont on 12-07-2024 CO2 [Moles/Vol] 21.3 mmol/L 21.0-32.0 [facility] Chloride assayOrdered By: Vinh Lehman on 12-07-2024 Chloride [Moles/Vol] 104 mmol/L 98-108 [facility] Erythrocyte distribution wid th ratioOrdered By: Tab Dupont on 12-07-2024 Erythrocyte distribution width (RBC) [Ratio] 14.0 % 11.6-14.6 [facility] Erythrocyte distribution wid th standard deviationOrdered By: Tab Dupont on 12-07-2024 Erythrocyte distribution width (RBC) [Entitic vol] 47.9 fL High 35.1-43.9 [facility] Erythrocyte distribution width (RBC) [Ratio] 47.9 fl High 35.1-43.9 [facility] GFR/1.73 sq M.predicted trish g non-blacks MDRD (S/P/Bld) [Vol rate/Area]Ordered By: Tab Dupont on 12-07-2024 Estimated GFR (MDRD) Non-Af Amer 117 >60 [facility] Comment on above: mL/min/1.73m2 CKD-EP I Creatinine Equation (2020) Glomerular filtration rate ( GFR) estimation/1.73 sq m using serum, plasma, or whole bOrdered By: Tab Dupont on 12-07-2024 GFR/1.73 sq M.predicted among non-blacks MDRD (S/P/Bld) [Vol rate/Area] 117 mL/min/{1.73_m2} >60 [facility] Comment on above: mL/min/1.73m2 CKD-EP I Creatinine Equation (2020) Hematocrit Auto (Bld) [Volum e fraction]Ordered By: Tab Dupont on 12-07-2024 Hematocrit (Bld) [Volume fraction] 38.2 % Low 40-54 [facility] Hemoglobin measurementOrdere d By: Tab Dupont on 12-07-2024 Hemoglobin (Bld) [Mass/Vol] 12.8 g/dL Low 13.0-16.5 [facility] MCV (mean corpuscular volume ) determinationOrdered By: Tab Dupont on 12-07-2024 MCV (RBC) [Entitic vol] 92.3 fL 80-94 [facility] Mean corpuscular hemoglobin (MCH) determinationOrdered By: Tab Dupont on 12-07-2024 MCH (RBC) [Entitic mass] 30.9 pg 27.0-32.0 [facility] Mean corpuscular hemoglobin concentration (MCHC) determinationOrdered By: Tab Dupont on 12-07-2024 MCHC (RBC) [Mass/Vol] 33.5 g/dL 32-36 [facility] Mean platelet volume determi nationOrdered By: Tab Dupont on 12-07-2024 Platelet mean volume (Bld) [Entitic vol] 10.5 fL 6.2-12.0 [facility] Platelet countOrdered By: Vinh Lehman on 12-07-2024 Platelets (Bld) [#/Vol] 241 10*3/uL 150-450 [facility] Potassium (Unsp spec) [Mass/ Vol]Ordered By: Tab Dupont on 12-07-2024 Potassium [Moles/Vol] 4.3 mmol/L 3.3-5.1 [facility] Potassium measurement (mass/ volume)Ordered By: Tab Dupont on 12-07-2024 Potassium (Unsp spec) [Mass/Vol] 4.3 mmol/L 3.3-5.1 [facility] RBC Auto (Bld) [#/Vol]Ordere d By: Tab Dupont on 12-07-2024 RBC (Bld) [#/Vol] 4.14 10*6/uL Low 4.6-6.2 [facility] Serum creatinine measurement (mass/volume)Ordered By: Tab Dupont on 12-07-2024 Creatinine [Mass/Vol] 0.47 mg/dL Low 0.70-1.20 [facility] Serum glucose measurement (m ass/volume)Ordered By: Tab Dupont on 12-07-2024 Glucose [Mass/Vol] 194 mg/dL High 70-99 [facility] Serum or plasma calcium randall urement (mass/volume)Ordered By: Tab Dupont on 12-07-2024 Calcium [Mass/Vol] 8.6 mg/dL 7.6-11.0 [facility] Serum or plasma urea nitroge n measurement (mass/volume)Ordered By: Tab Dupont on 12-07-2024 Urea nitrogen [Mass/Vol] 9 mg/dL 4-19 [facility] Sodium levelOrdered By: Omar Dupont on 12-07-2024 Sodium [Moles/Vol] 136 mmol/L 133-145 [facility] White blood cell (WBC) count Ordered By: Tab Dupont on 12-07-2024 WBC (Bld) [#/Vol] 6.6 10*3/uL 4.4-11.0 [facility] Urine Cultureon 12-02-2024 [facility] STRAIGHT CATH Copy of report sent to Infection Control Printer [id number] 12/02/24 1017 JIM. Urine Culture RESULTS CALLED TO LUKASZ Batista 12/02/24 1021 Erika Rosario. REPORT READ BACK BY . Citrobacter freundii [place] Count >100,000 Providencia stuartii Providencia stuartii MARKER [...] R Vancomycin Islt HARINDER 1 S Normal [facility] Comment on above: Performed By: #### L 100.0500, L500.4050, L501.6710, L101.9900 #### [facility] [address] [place], [place], [id number] BUN/creatinine ratioOrdered By: Tab Dupont on 11-30-2024 Urea nitrogen/Creatinine [Mass ratio] 23.9 mg/mg High [address] [place] [address] Basic Metabolic Profile (BMP )on 11-30-2024 Anion gap [Moles/Vol] 9 mmol/L Normal 5-15 [facility] Comment on above: Order Comment: 301.2 Performed By: #### L 100.0500, L500.4050, L501.6710, L101.9900 #### [facility] [address] [place], [address] BUN/CRE 23.9 RATIO High [address] [place] [address] Comment on above: Order Comment: 301.2 Performed By: #### L 100.0500, L500.4050, L501.6710, L101.9900 #### [facility] [address] [place], [address] Calcium [Mass/Vol] 8.4 mg/dL Normal 7.6-11.0 [facility] Comment on above: Order Comment: 301.2 Performed By: #### L 100.0500, L500.4050, L501.6710, L101.9900 #### [facility] [address] [place], [address] Chloride [Moles/Vol] 105 mmol/L Normal 96-108 [facility] Comment on above: Order Comment: 301.2 Performed By: #### L 100.0500, L500.4050, L501.6710, L101.9900 #### [facility] [address] [place], [address] CO2 [Moles/Vol] 22.7 mmol/L Normal 22.0-29.0 [facility] Comment on above: Order Comment: 301.2 Performed By: #### L 100.0500, L500.4050, L501.6710, L101.9900 #### [facility] [address] [place], [address] Creatinine [Mass/Vol] 0.4 mg/dL Low 0.8-1.3 [facility] Comment on above: Order Comment: 301.2 Performed By: #### L 100.0500, L500.4050, L501.6710, L101.9900 #### [facility] [address] [place], [address] GFR/1.73 sq M.predicted among non-blacks MDRD (S/P/Bld) [Vol rate/Area] 120 mL/min/{1.73_m2} Normal >60 [facility] Comment on above: Order Comment: 301.2 Result Comment: mL/m in/1.73m2 CKD-EPI Creatinine Equation (2020) Performed By: #### L 100.0500, L500.4050, L501.6710, L101.9900 #### [facility] [address] [place], [address] Glucose [Mass/Vol] 170 mg/dL High 70-99 [facility] Comment on above: Order Comment: 301.2 Performed By: #### L 100.0500, L500.4050, L501.6710, L101.9900 #### [facility] [address] [place], [address] Potassium [Moles/Vol] 3.8 mmol/L Normal 3.3-5.1 [facility] Comment on above: Order Comment: 301.2 Performed By: #### L 100.0500, L500.4050, L501.6710, L101.9900 #### [facility] [address] [place], [address] Sodium [Moles/Vol] 137 mmol/L Normal 133-145 [facility] Comment on above: Order Comment: 301.2 Performed By: #### L 100.0500, L500.4050, L501.6710, L101.9900 #### [facility] [address] [place], [address] Urea nitrogen [Mass/Vol] 10 mg/dL Normal 4-19 [facility] Comment on above: Order Comment: 301.2 Performed By: #### L 100.0500, L500.4050, L501.6710, L101.9900 #### [facility] [address] [place], [address] CBC-Complete Blood Cnt No Di ffon 11-30-2024 Erythrocyte distribution width (RBC) [Ratio] 13.7 % Normal 11.6-14.6 [facility] Comment on above: Order Comment: 301.2 Performed By: #### L 100.0500, L500.4050, L501.6710, L101.9900 #### [facility] [address] [place], [address] Hematocrit (Bld) [Volume fraction] 37.1 % Low 40-54 [facility] Comment on above: Order Comment: 301.2 Performed By: #### L 100.0500, L500.4050, L501.6710, L101.9900 #### [facility] [address] [place], [address] Hemoglobin (Bld) [Mass/Vol] 12.0 g/dL Low 13.0-16.5 [facility] Comment on above: Order Comment: 301.2 Performed By: #### L 100.0500, L500.4050, L501.6710, L101.9900 #### [facility] [address] [place], [address] MCH (RBC) [Entitic mass] 29.9 pg Normal 27.0-32.0 [facility] Comment on above: Order Comment: 301.2 Performed By: #### L 100.0500, L500.4050, L501.6710, L101.9900 #### [facility] [address] [place], [address] MCHC (RBC) [Mass/Vol] 32.3 g/dL Normal 32-36 [facility] Comment on above: Order Comment: 301.2 Performed By: #### L 100.0500, L500.4050, L501.6710, L101.9900 #### [facility] [address] [place], [address] MCV (RBC) [Entitic vol] 92.5 fL Normal 80-94 [facility] Comment on above: Order Comment: 301.2 Performed By: #### L 100.0500, L500.4050, L501.6710, L101.9900 #### [facility] [address] [place], [address] Platelet mean volume (Bld) [Entitic vol] 11.1 fL Normal 6.2-12.0 [facility] Comment on above: Order Comment: 301.2 Performed By: #### L 100.0500, L500.4050, L501.6710, L101.9900 #### [facility] [address] [place], [address] Platelets (Bld) [#/Vol] 230 10*3/uL Normal 150-450 [facility] Comment on above: Order Comment: 301.2 Performed By: #### L 100.0500, L500.4050, L501.6710, L101.9900 #### [facility] [address] [place], [address] RBC (Bld) [#/Vol] 4.01 10*6/uL Low 4.6-6.2 [facility] Comment on above: Order Comment: 301.2 Performed By: #### L 100.0500, L500.4050, L501.6710, L101.9900 #### [facility] [address] [place], [address] RDW SD 46.8 fl High 35.1-43.9 [facility] Comment on above: Order Comment: 301.2 Performed By: #### L 100.0500, L500.4050, L501.6710, L101.9900 #### [facility] [address] [place], [address] WBC (Bld) [#/Vol] 6.3 10*3/uL Normal 4.4-11.0 [facility] Comment on above: Order Comment: 301.2 Performed By: #### L 100.0500, L500.4050, L501.6710, L101.9900 #### [facility] [address] [place], [address] Carbon dioxide measurementOr dered By: Tab Dupont on 11-30-2024 CO2 [Moles/Vol] 22.7 mmol/L 22.0-29.0 [facility] Chloride measurementOrdered By: Tab Dupont on 11-30-2024 Chloride [Moles/Vol] 105 mmol/L 96-108 [facility] Creatinine [Moles/Vol]Ordere d By: Tab Dupont on 11-30-2024 Creatinine [Mass/Vol] 0.4 mg/dL Low 0.8-1.3 [facility] Erythrocyte distribution wid th ratioOrdered By: Tab Dupont on 11-30-2024 Erythrocyte distribution width (RBC) [Ratio] 13.7 % 11.6-14.6 [facility] Erythrocyte distribution wid th standard deviationOrdered By: Tab Dupont on 11-30-2024 Erythrocyte distribution width (RBC) [Entitic vol] 46.8 fL High 35.1-43.9 [facility] Erythrocyte distribution width (RBC) [Ratio] 46.8 fl High 35.1-43.9 [facility] GFR/1.73 sq M.predicted trish g non-blacks MDRD (S/P/Bld) [Vol rate/Area]Ordered By: Tab Dupont on 11-30-2024 Estimated GFR (MDRD) Non-Af Amer 120 >60 [facility] Comment on above: mL/min/1.73m2 CKD-EP I Creatinine Equation (2020) Glomerular filtration rate ( GFR) estimation/1.73 sq m using serum, plasma, or whole bOrdered By: Tab Dupont on 11-30-2024 GFR/1.73 sq M.predicted among non-blacks MDRD (S/P/Bld) [Vol rate/Area] 120 mL/min/{1.73_m2} >60 [facility] Comment on above: mL/min/1.73m2 CKD-EP I Creatinine Equation (2020) Hematocrit Auto (Bld) [Volum e fraction]Ordered By: Tab Dupont on 11-30-2024 Hematocrit (Bld) [Volume fraction] 37.1 % Low 40-54 [facility] Hemoglobin measurementOrdere d By: Tab Dupont on 11-30-2024 Hemoglobin (Bld) [Mass/Vol] 12.0 g/dL Low 13.0-16.5 [facility] MCV (mean corpuscular volume ) determinationOrdered By: Tab Dupont on 11-30-2024 MCV (RBC) [Entitic vol] 92.5 fL 80-94 [facility] Mean corpuscular hemoglobin (MCH) determinationOrdered By: Tab Dupont on 11-30-2024 MCH (RBC) [Entitic mass] 29.9 pg 27.0-32.0 [facility] Mean corpuscular hemoglobin concentration (MCHC) determinationOrdered By: Tab Dupont on 11-30-2024 MCHC (RBC) [Mass/Vol] 32.3 g/dL 32-36 [facility] Mean platelet volume determi nationOrdered By: Tab Dupont on 11-30-2024 Platelet mean volume (Bld) [Entitic vol] 11.1 fL 6.2-12.0 [facility] Platelet countOrdered By: Vinh Lehman on 11-30-2024 Platelets (Bld) [#/Vol] 230 10*3/uL 150-450 [facility] RBC Auto (Bld) [#/Vol]Ordere d By: Tab Dupont on 11-30-2024 RBC (Bld) [#/Vol] 4.01 10*6/uL Low 4.6-6.2 [facility] Serum glucose measurement (m ass/volume)Ordered By: Tab Dupont on 11-30-2024 Glucose [Mass/Vol] 170 mg/dL High 70-99 [facility] Serum or plasma anion gap de termination (moles/volume)Ordered By: Tab Dupont on 11-30-2024 Anion gap [Moles/Vol] 9 mmol/L 5-15 [facility] Serum or plasma calcium randall urement (mass/volume)Ordered By: Tab Dupont on 11-30-2024 Calcium [Mass/Vol] 8.4 mg/dL 7.6-11.0 [facility] Serum or plasma creatinine m easurement (moles/volume)Ordered By: Tab Dupont on 11-30-2024 Creatinine [Moles/Vol] 0.4 mg/dL Low 0.8-1.3 [facility] Serum or plasma potassium me asurementOrdered By: Tab Dupont on 11-30-2024 Potassium [Moles/Vol] 3.8 mmol/L 3.3-5.1 [facility] Serum or plasma sodium measu rement (moles/volume)Ordered By: Tab Dupont on 11-30-2024 Sodium [Moles/Vol] 137 mmol/L 133-145 [facility] Serum or plasma urea nitroge n measurement (mass/volume)Ordered By: Tab Dupont on 11-30-2024 Urea nitrogen [Mass/Vol] 10 mg/dL 4-19 [facility] White blood cell (WBC) count Ordered By: Tab Dupont on 11-30-2024 WBC (Bld) [#/Vol] 6.3 10*3/uL 4.4-11.0 [facility] Bilirubin Test strip Ql (U)O rdered By: Daisy Costello on 11-29-2024 Bilirubin Ql (U) Negative Negative [facility] Epithelial cells.squamous LM Ql (Urine sed)Ordered By: Daisy Costello on 11-29-2024 Epithelial cells.squamous LM.HPF (Urine sed) [#/Area] 0 /[HPF] 0-5 [facility] Glucose Ql (U)Ordered By: Jose Costello on 11-29-2024 Urine Glucose (UA) Normal mg/dl Normal [facility] Ketones Test strip Ql (U)Ord ered By: Daisy Costello on 11-29-2024 Ketones Ql (U) Negative Negative [facility] Microscopic analysis of urin e for red blood cells (RBC)Ordered By: Daisy Costello on 11-29-2024 Microscopic analysis of urine for red blood cells (RBC) 10-25 SEEN /hpf 0-5 [facility] Urine RBC 10-25 SEEN /hpf 0-5 [facility] Mucus LM Ql (Urine sed)Order ed By: Daisy Costello on 11-29-2024 Mucus Ql (Urine sed) 0 SEEN /hpf [facility] Nitrite Test strip Ql (U)Ord ered By: Daisy Costello on 11-29-2024 Nitrite Ql (U) Positive High Negative [facility] Protein Test strip Ql (U)Ord ered By: Daisy Costello on 11-29-2024 Protein Ql (U) 100 mg/dl High Negative [facility] Squamous epithelial cells de tection in urine sediment by light microscopyOrdered By: Daisy Costello on 11-29-2024 Epithelial cells.squamous LM Ql (Urine sed) 0 SEEN /hpf 0-5 [facility] Urinalysis, Completeon 11-29 BACTERIA 1+ /hpf Normal None Seen [facility] Comment on above: Order Comment: 301.2 Performed By: #### L 100.0500, L500.4050, L501.6710, L101.9900 #### [facility] [address] [place], [address] RBC 10-25 SEEN Normal 0-5 [facility] Comment on above: Order Comment: 301.2 Performed By: #### L 100.0500, L500.4050, L501.6710, L101.9900 #### [facility] [address] [place], [address] WBC >100 SEEN Normal 0-5 [facility] Comment on above: Order Comment: 301.2 Performed By: #### L 100.0500, L500.4050, L501.6710, L101.9900 #### [facility] [address] [place], [address] EPI,SQUAMOUS 0 SEEN Normal 0-5 [facility] Comment on above: Order Comment: 301.2 Performed By: #### L 100.0500, L500.4050, L501.6710, L101.9900 #### [facility] [address] [place], [address] Mucus Ql (Urine sed) 0 SEEN Normal [facility] Comment on above: Order Comment: 301.2 Performed By: #### L 100.0500, L500.4050, L501.6710, L101.9900 #### [facility] [address] [place], [address] Urine blood detectionOrdered By: Daisy Costello on 11-29-2024 Urine Occult Blood 250 /ul High Negative [facility] Urine clarityOrdered By: Ward Costello on 11-29-2024 Clarity (U) Cloudy Clear [facility] Urine color determinationOrd ered By: Daisy Costello on 11-29-2024 Color (U) Yellow Yellow [facility] Urine cultureOrdered By: Ward Costello on 11-29-2024 Bacteria identified Cx Nom (U) Citrobacter freundii Abnormal [facility] Bacteria identified Cx Nom (U) Providencia stuartii Abnormal [facility] Bacteria identified Cx Nom (U) Enterococcus faecalis Abnormal [facility] Bacteria identified Cx Nom (U) Citrobacter freundii Abnormal [facility] Bacteria identified Cx Nom (U) Providencia stuartii Abnormal [facility] Bacteria identified Cx Nom (U) Enterococcus faecalis Abnormal [facility] Urine glucose detectionOrder ed By: Daisy Costello on 11-29-2024 Glucose Ql (U) Normal mg/dl Normal [facility] Urine leukocyte esterase det ection by dipstickOrdered By: Daisy Costello on 11-29-2024 Leukocyte esterase Test strip Ql (U) 500 /ul High Negative [facility] Urine pHOrdered By: Colin on 11-29-2024 pH (U) 6.5 [pH] 5.0 - 8.0 [facility] Urine sediment bacteria coun t by microscopy (number/high power field)Ordered By: Daisy Costello on 11-29-2024 Bacteria LM.HPF (Urine sed) [#/Area] 1 /[HPF] None Seen [facility] Urine specific gravity measu rementOrdered By: Daisy Costello on 11-29-2024 Specific gravity (U) [Rel density] 1.010 1.002-1.030 [facility] Urine urobilinogen measureme ntOrdered By: Daisy Costello on 11-29-2024 Urobilinogen Ql (U) Normal mg/dl Normal [facility] Urobilinogen Ql (U)Ordered B y: Daisy Costello on 11-29-2024 Urine Urobilinogen Normal mg/dl Normal [facility] White blood cell countOrdere d By: Daisy Costello on 11-29-2024 Urine WBC >100 SEEN /hpf 0-5 [facility] White blood cell count >100 SEEN /hpf 0-5 [facility] Progress Noteson 11-08-2024 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 Faisal Simeon DO 11/08/2024 Normal [facility] 36 10-27-2024 36 Returned call unable to leave message doug was out for the day [facility] 3610-26-2024 36 Name of caller: Dax banks Contact phone number: [phone] Relationship to Patient: [facility] Provider: Dr. Gillette Practice: [facility] Chief Complaint/Reason for Call: Doug states she missed a call from the office to schedule the patient and would like a return call. Please review. Best time of day caller can be reached: any Patient advised that office/PCP has 24-48 business hours to return their call: Yes [facility] 36 Called and left message to call to reschedule appointment [address] 10-25-2024 36 Name of Caller: Dax banks Contact Reason for Appointment: Please call to r/s cx appt for 10.26.24 due to weather conditions. Follow up for pain management//no showed on 08.04.24// Doug from [facility] appt//medicare medicaid Office Name: [facility] Medication Refills need, if any: n/a Medication Name: n/a Normal [facility] Basic Metabolic Profile (BMP )on 10-10-2024 BUN/CRE 19.6 RATIO Normal 10-20 [facility] Comment on above: Order Comment: 313-2 Performed By: #### L 100.0500, L500.2500 #### [facility] [address] [place], [address] CA,Total 8.7 mg/dL Normal 8.5-10.1 [facility] Comment on above: Order Comment: 313-2 Performed By: #### L 100.0500, L500.2500 #### [facility] [address] [place], [address] Chloride [Moles/Vol] 109 mmol/L High 98-107 [facility] Comment on above: Order Comment: 313-2 Performed By: #### L 100.0500, L500.2500 #### [facility] [address] [place], [address] CO2 [Moles/Vol] 22.0 mmol/L Normal 21.0-32.0 [facility] Comment on above: Order Comment: 313-2 Performed By: #### L 100.0500, L500.2500 #### [facility] [address] [place], [address] Creatinine [Mass/Vol] 0.56 mg/dL Low 0.70-1.30 [facility] Comment on above: Order Comment: 313-2 Result Comment: The validity of the calculated GFR GFRAA in patients over 70 years has not been determined. Clinical correlation is essential. Performed By: #### L 100.0500, L500.2500 #### [facility] [address] [place], [address] EST GFR - AA 189 mL/min Normal >60 [facility] Comment on above: Order Comment: 313-2 Result Comment: Afri can Russian GFR Calc Performed By: #### L 100.0500, L500.2500 #### [facility] [address] [place], [address] GAP 7 Normal 5-15 [facility] Comment on above: Order Comment: 313-2 Performed By: #### L 100.0500, L500.2500 #### [facility] [address] [place], [address] GFR/1.73 sq M.predicted among non-blacks MDRD (S/P/Bld) [Vol rate/Area] 156 mL/min/{1.73_m2} Normal >60 [facility] Comment on above: Order Comment: 313-2 Result Comment: Non- GFR Calc Performed By: #### L 100.0500, L500.2500 #### [facility] [address] [place], [address] Glucose [Mass/Vol] 108 mg/dL High 74-106 [facility] Comment on above: Order Comment: 313-2 Result Comment: Fast ing Glucose result from 100 to 125 mg/dL suggests IMPAIRED HOMEOSTASIS per A.D.A. criteria. Performed By: #### L 100.0500, L500.2500 #### [facility] [address] [place], [address] Potassium [Moles/Vol] 4.0 mmol/L Normal 3.5-5.1 [facility] Comment on above: Order Comment: 313-2 Performed By: #### L 100.0500, L500.2500 #### [facility] [address] [place], [address] Sodium [Moles/Vol] 139 mmol/L Normal 136-145 [facility] Comment on above: Order Comment: 313-2 Performed By: #### L 100.0500, L500.2500 #### [facility] [address] [place], [address] Urea nitrogen [Mass/Vol] 11 mg/dL Normal 7-18 [facility] Comment on above: Order Comment: 313-2 Performed By: #### L 100.0500, L500.2500 #### [facility] [address] [place], [address] Blood urea nitrogen (BUN)/cr eatinine ratioOrdered By: Tab Dupont on 10-10-2024 Urea nitrogen/Creatinine [Mass ratio] 19.6 mg/mg 10-20 [facility] CBC-Complete Blood Cnt No Di ffon 10-10-2024 Erythrocyte distribution width (RBC) [Ratio] 13.9 % Normal 11.6-14.6 [facility] Comment on above: Order Comment: 313-2 Performed By: #### L 100.0500, L500.2500 #### [facility] [address] [place], [address] Hematocrit (Bld) [Volume fraction] 42.2 % Normal 40-54 [facility] Comment on above: Order Comment: 313-2 Performed By: #### L 100.0500, L500.2500 #### [facility] [address] [place], [address] Hemoglobin (Bld) [Mass/Vol] 13.4 g/dL Normal 13.0-16.5 [facility] Comment on above: Order Comment: 313-2 Performed By: #### L 100.0500, L500.2500 #### [facility] [address] [place], [address] MCH (RBC) [Entitic mass] 29.8 pg Normal 27.0-32.0 [facility] Comment on above: Order Comment: 313-2 Performed By: #### L 100.0500, L500.2500 #### [facility] [address] [place], [address] MCHC (RBC) [Mass/Vol] 31.8 g/dL Low 32-36 [facility] Comment on above: Order Comment: 313-2 Performed By: #### L 100.0500, L500.2500 #### [facility] [address] [place], [address] MCV (RBC) [Entitic vol] 94.0 fL Normal 80-94 [facility] Comment on above: Order Comment: 313-2 Performed By: #### L 100.0500, L500.2500 #### [facility] [address] [place], [address] Platelet mean volume (Bld) [Entitic vol] 10.5 fL Normal 6.2-12.0 [facility] Comment on above: Order Comment: 313-2 Performed By: #### L 100.0500, L500.2500 #### [facility] [address] [place], [address] Platelets (Bld) [#/Vol] 283 10*3/uL Normal 150-450 [facility] Comment on above: Order Comment: 313-2 Performed By: #### L 100.0500, L500.2500 #### [facility] [address] [place], [address] RBC (Bld) [#/Vol] 4.49 10*6/uL Low 4.6-6.2 [facility] Comment on above: Order Comment: 313-2 Performed By: #### L 100.0500, L500.2500 #### [facility] [address] [place], [address] RDW SD 47.8 fl High 35.1-43.9 [facility] Comment on above: Order Comment: 313-2 Performed By: #### L 100.0500, L500.2500 #### [facility] [address] [place], [address] WBC (Bld) [#/Vol] 7.7 10*3/uL Normal 4.4-11.0 [facility] Comment on above: Order Comment: 313-2 Performed By: #### L 100.0500, L500.2500 #### [facility] [address] [place], [address] Carbon dioxide measurementOr dered By: Tab Dupont on 10-10-2024 CO2 [Moles/Vol] 22.0 mmol/L 21.0-32.0 [facility] Chloride measurementOrdered By: Tab Dupont on 10-10-2024 Chloride [Moles/Vol] 109 mmol/L High 98-107 [facility] Erythrocyte distribution wid th ratioOrdered By: Tab Dupont on 10-10-2024 Erythrocyte distribution width (RBC) [Ratio] 13.9 % 11.6-14.6 [facility] Erythrocyte distribution wid th standard deviationOrdered By: Tab Dupont on 10-10-2024 Erythrocyte distribution width (RBC) [Entitic vol] 47.8 fL High 35.1-43.9 [facility] Estimated glomerular filtrat ion rate (GFR) AmericanOrdered By: Tab Dupont on 10-10-2024 Estimated GFR (MDRD) Amer 189 mL/min >60 [facility] Comment on above: GFR Calc Glomerular filtration rate ( GFR) estimationOrdered By: Tab Dupont on 10-10-2024 Estimated GFR (MDRD) Non-Af Amer 156 mL/min >60 [facility] Comment on above: Non- GFR Calc Glucose measurementOrdered B y: Tab Dupont on 10-10-2024 Glucose [Mass/Vol] 108 mg/dL High 74-106 [facility] Comment on above: Fasting Glucose resu lt from 100 to 125 mg/dL suggests IMPAIRED HOMEOSTASIS per A.D.A. criteria. Hematocrit Auto (Bld) [Volum e fraction]Ordered By: Tab Dupont on 10-10-2024 Hematocrit (Bld) [Volume fraction] 42.2 % 40-54 [facility] Hemoglobin measurementOrdere d By: Tab Dupont on 10-10-2024 Hemoglobin (Bld) [Mass/Vol] 13.4 g/dL 13.0-16.5 [facility] MCV (mean corpuscular volume ) determinationOrdered By: Tab Dupont on 10-10-2024 MCV (RBC) [Entitic vol] 94.0 fL 80-94 [facility] Mean corpuscular hemoglobin (MCH) determinationOrdered By: Tab Dupont on 10-10-2024 MCH (RBC) [Entitic mass] 29.8 pg 27.0-32.0 [facility] Mean corpuscular hemoglobin concentration (MCHC) determinationOrdered By: Tab Dupont on 10-10-2024 MCHC (RBC) [Mass/Vol] 31.8 g/dL Low 32-36 [facility] Mean platelet volume determi nationOrdered By: Tab Dupont on 10-10-2024 Platelet mean volume (Bld) [Entitic vol] 10.5 fL 6.2-12.0 [facility] Platelet countOrdered By: Vinh Lehman on 10-10-2024 Platelets (Bld) [#/Vol] 283 10*3/uL 150-450 [facility] Potassium measurementOrdered By: Tab Dupont on 10-10-2024 Potassium [Moles/Vol] 4.0 mmol/L 3.5-5.1 [facility] RBC Auto (Bld) [#/Vol]Ordere d By: Tab Dupont on 10-10-2024 RBC (Bld) [#/Vol] 4.49 10*6/uL Low 4.6-6.2 [facility] Serum anion gap measurementO rdered By: Tab Dupont on 10-10-2024 Anion gap [Moles/Vol] 7 mmol/L 5-15 [facility] Serum or plasma calcium randall urement (mass/volume)Ordered By: Tab Dupont on 10-10-2024 Calcium [Mass/Vol] 8.7 mg/dL 8.5-10.1 [facility] Serum or plasma creatinine m easurement (mass/volume)Ordered By: Tab Dupont on 10-10-2024 Creatinine [Mass/Vol] 0.56 mg/dL Low 0.70-1.30 [facility] Comment on above: The validity of the calculated GFR & GFRAA in patients over 70 years has not been determined. Clinical correlation is essential. Serum or plasma urea nitroge n measurement (mass/volume)Ordered By: Tab Dupont on 10-10-2024 Urea nitrogen [Mass/Vol] 11 mg/dL 7-18 [facility] Sodium levelOrdered By: Omar Dupont on 10-10-2024 Sodium [Moles/Vol] 139 mmol/L 136-145 [facility] White blood cell (WBC) count Ordered By: Tab Dupont on 10-10-2024 WBC (Bld) [#/Vol] 7.7 10*3/uL 4.4-11.0 [facility] Basic Metabolic Profile (BMP )on 10-03-2024 BUN/CRE 14.7 RATIO Normal 10-20 [facility] Comment on above: Order Comment: 301.2 Performed By: #### L 100.0500, L500.4050, L501.6710, L101.9900 #### [facility] [address] [place], [address] CA,Total 8.7 mg/dL Normal 8.5-10.1 [facility] Comment on above: Order Comment: 301.2 Performed By: #### L 100.0500, L500.4050, L501.6710, L101.9900 #### [facility] [address] [place], [address] Chloride [Moles/Vol] 109 mmol/L High 98-107 [facility] Comment on above: Order Comment: 301.2 Performed By: #### L 100.0500, L500.4050, L501.6710, L101.9900 #### [facility] [address] [place], [address] CO2 [Moles/Vol] 24.0 mmol/L Normal 21.0-32.0 [facility] Comment on above: Order Comment: 301.2 Performed By: #### L 100.0500, L500.4050, L501.6710, L101.9900 #### [facility] [address] [place], [address] Creatinine [Mass/Vol] 0.48 mg/dL Low 0.70-1.30 [facility] Comment on above: Order Comment: 301.2 Result Comment: The validity of the calculated GFR GFRAA in patients over 70 years has not been determined. Clinical correlation is essential. Performed By: #### L 100.0500, L500.4050, L501.6710, L101.9900 #### [facility] [address] [place], [address] EST GFR - AA 229 mL/min Normal >60 [facility] Comment on above: Order Comment: 301.2 Result Comment: Afri can Russian GFR Calc Performed By: #### L 100.0500, L500.4050, L501.6710, L101.9900 #### [facility] [address] [place], [address] GAP 5 Normal 5-15 [facility] Comment on above: Order Comment: 301.2 Performed By: #### L 100.0500, L500.4050, L501.6710, L101.9900 #### [facility] [address] [place], [address] GFR/1.73 sq M.predicted among non-blacks MDRD (S/P/Bld) [Vol rate/Area] 189 mL/min/{1.73_m2} Normal >60 [facility] Comment on above: Order Comment: 301.2 Result Comment: Non- GFR Calc Performed By: #### L 100.0500, L500.4050, L501.6710, L101.9900 #### [facility] [address] [place], [address] Glucose [Mass/Vol] 105 mg/dL Normal 74-106 [facility] Comment on above: Order Comment: 301.2 Result Comment: Fast ing Glucose result from 100 to 125 mg/dL suggests IMPAIRED HOMEOSTASIS per A.D.A. criteria. Performed By: #### L 100.0500, L500.4050, L501.6710, L101.9900 #### [facility] [address] [place], [address] Potassium [Moles/Vol] 3.7 mmol/L Normal 3.5-5.1 [facility] Comment on above: Order Comment: 301.2 Performed By: #### L 100.0500, L500.4050, L501.6710, L101.9900 #### [facility] [address] [place], [address] Sodium [Moles/Vol] 138 mmol/L Normal 136-145 [facility] Comment on above: Order Comment: 301.2 Performed By: #### L 100.0500, L500.4050, L501.6710, L101.9900 #### [facility] [address] [place], [address] Urea nitrogen [Mass/Vol] 7 mg/dL Normal 7-18 [facility] Comment on above: Order Comment: 301.2 Performed By: #### L 100.0500, L500.4050, L501.6710, L101.9900 #### [facility] [address] [place], [address] Blood urea nitrogen (BUN)/cr eatinine ratioOrdered By: Tab Dupont on 10-03-2024 Urea nitrogen/Creatinine [Mass ratio] 14.7 mg/mg 10- [facility] CBC-Complete Blood Cnt No Di ffon 10-03-2024 Erythrocyte distribution width (RBC) [Ratio] 14.0 % Normal 11.6-14.6 [facility] Comment on above: Order Comment: 301.2 Performed By: #### L 100.0500, L500.4050, L501.6710, L101.9900 #### [facility] [address] [place], [address] Hematocrit (Bld) [Volume fraction] 38.4 % Low 40-54 [facility] Comment on above: Order Comment: 301.2 Performed By: #### L 100.0500, L500.4050, L501.6710, L101.9900 #### [facility] [address] [place], [address] Hemoglobin (Bld) [Mass/Vol] 12.5 g/dL Low 13.0-16.5 [facility] Comment on above: Order Comment: 301.2 Performed By: #### L 100.0500, L500.4050, L501.6710, L101.9900 #### [facility] [address] [place], [address] MCH (RBC) [Entitic mass] 30.3 pg Normal 27.0-32.0 [facility] Comment on above: Order Comment: 301.2 Performed By: #### L 100.0500, L500.4050, L501.6710, L101.9900 #### [facility] [address] [place], [address] MCHC (RBC) [Mass/Vol] 32.6 g/dL Normal 32-36 [facility] Comment on above: Order Comment: 301.2 Performed By: #### L 100.0500, L500.4050, L501.6710, L101.9900 #### [facility] [address] [place], [address] MCV (RBC) [Entitic vol] 93.0 fL Normal 80-94 [facility] Comment on above: Order Comment: 301.2 Performed By: #### L 100.0500, L500.4050, L501.6710, L101.9900 #### [facility] [address] [place], [address] Platelet mean volume (Bld) [Entitic vol] 10.4 fL Normal 6.2-12.0 [facility] Comment on above: Order Comment: 301.2 Performed By: #### L 100.0500, L500.4050, L501.6710, L101.9900 #### [facility] [address] [place], [address] Platelets (Bld) [#/Vol] 284 10*3/uL Normal 150-450 [facility] Comment on above: Order Comment: 301.2 Performed By: #### L 100.0500, L500.4050, L501.6710, L101.9900 #### [facility] [address] [place], [address] RBC (Bld) [#/Vol] 4.13 10*6/uL Low 4.6-6.2 [facility] Comment on above: Order Comment: 301.2 Performed By: #### L 100.0500, L500.4050, L501.6710, L101.9900 #### [facility] [address] [place], [address] RDW SD 48.5 fl High 35.1-43.9 [facility] Comment on above: Order Comment: 301.2 Performed By: #### L 100.0500, L500.4050, L501.6710, L101.9900 #### [facility] [address] [place], [address] WBC (Bld) [#/Vol] 7.8 10*3/uL Normal 4.4-11.0 [facility] Comment on above: Order Comment: 301.2 Performed By: #### L 100.0500, L500.4050, L501.6710, L101.9900 #### [facility] [address] [place], [address] Carbon dioxide measurementOr dered By: Tab Dupont on 10-03-2024 CO2 [Moles/Vol] 24.0 mmol/L 21.0-32.0 [facility] Chloride measurementOrdered By: Tab Dupont on 10-03-2024 Chloride [Moles/Vol] 109 mmol/L High 98-107 [facility] Erythrocyte distribution wid th ratioOrdered By: Tab Dupont on 10-03-2024 Erythrocyte distribution width (RBC) [Ratio] 14.0 % 11.6-14.6 [facility] Erythrocyte distribution wid th standard deviationOrdered By: Tab Dupont on 10-03-2024 Erythrocyte distribution width (RBC) [Entitic vol] 48.5 fL High 35.1-43.9 [facility] Estimated glomerular filtrat ion rate (GFR) AmericanOrdered By: Tab Dupont on 10-03-2024 Estimated GFR (MDRD) Amer 229 mL/min >60 [facility] Comment on above: GFR Calc Glomerular filtration rate ( GFR) estimationOrdered By: Tab Dupont on 10-03-2024 Estimated GFR (MDRD) Non-Af Amer 189 mL/min >60 [facility] Comment on above: Non- GFR Calc Glucose measurementOrdered B y: Tab Dupont on 10-03-2024 Glucose [Mass/Vol] 105 mg/dL 74-106 [facility] Comment on above: Fasting Glucose resu lt from 100 to 125 mg/dL suggests IMPAIRED HOMEOSTASIS per A.D.A. criteria. Hematocrit Auto (Bld) [Volum e fraction]Ordered By: Tab Dupont on 10-03-2024 Hematocrit (Bld) [Volume fraction] 38.4 % Low 40-54 [facility] Hemoglobin measurementOrdere d By: Tab Dupont on 10-03-2024 Hemoglobin (Bld) [Mass/Vol] 12.5 g/dL Low 13.0-16.5 [facility] MCV (mean corpuscular volume ) determinationOrdered By: Tab Dupont on 10-03-2024 MCV (RBC) [Entitic vol] 93.0 fL 80-94 [facility] Mean corpuscular hemoglobin (MCH) determinationOrdered By: Tab Dupont on 10-03-2024 MCH (RBC) [Entitic mass] 30.3 pg 27.0-32.0 [facility] Mean corpuscular hemoglobin concentration (MCHC) determinationOrdered By: Tab Dupont on 10-03-2024 MCHC (RBC) [Mass/Vol] 32.6 g/dL 32-36 [facility] Mean platelet volume determi nationOrdered By: Tab Dupont on 10-03-2024 Platelet mean volume (Bld) [Entitic vol] 10.4 fL 6.2-12.0 [facility] Platelet countOrdered By: Vinh Lehman on 10-03-2024 Platelets (Bld) [#/Vol] 284 10*3/uL 150-450 [facility] Potassium measurementOrdered By: Tab Dupont on 10-03-2024 Potassium [Moles/Vol] 3.7 mmol/L 3.5-5.1 [facility] RBC Auto (Bld) [#/Vol]Ordere d By: Tab Dupont on 12-30-2024 RBC (Bld) [#/Vol] 4.13 10*6/uL Low 4.6-6.2 [facility] Serum anion gap measurementO rdered By: Tab Dupont on 10-03-2024 Anion gap [Moles/Vol] 5 mmol/L 5- [facility] Serum or plasma calcium randall urement (mass/volume)Ordered By: Tab Dupont on 10-03-2024 Calcium [Mass/Vol] 8.7 mg/dL 8.5-10.1 [facility] Serum or plasma creatinine m easurement (mass/volume)Ordered By: Tab Dupont on 10-03-2024 Creatinine [Mass/Vol] 0.48 mg/dL Low 0.70-1.30 [facility] Comment on above: The validity of the calculated GFR & GFRAA in patients over 70 years has not been determined. Clinical correlation is essential. Serum or plasma urea nitroge n measurement (mass/volume)Ordered By: Tab Dupont on 10-03-2024 Urea nitrogen [Mass/Vol] 7 mg/dL 04-21 [facility] Sodium levelOrdered By: Omar Dupont on 10-03-2024 Sodium [Moles/Vol] 138 mmol/L 136-145 [facility] White blood cell (WBC) count Ordered By: Tab Dupont on 10-03-2024 WBC (Bld) [#/Vol] 7.8 10*3/uL 4.4-11.0 [facility] Patient Instructionson 09-30 Project Drilling Engineer Authentication Interface Message Text Completed UDS. Inserted 18Fr 10cc santana Call to schedule appt with Urology Dr Jorge Grimm MD (Surgeon) [address] [place] [address] [place] [address] scan given recurrent blood [...] burning on urination, call the office at [phone] Thursday through Thursday 8:00 AM to 4:30 PM. For emergencies, go the Emergency Room. If you do not already have a follow up appointment scheduled with your physician, call the office at [phone] to schedule one. Normal [facility] Progress Noteson 09-30-2024 Project Drilling Engineer Authentication Interface Message Text SPINAL CORD INJURY [...] current LUTS. Urinalysis: No results found for: ULEUK, UNITR, UGLUCOSE, URINEBLOOD, UAPP, UCOLOR, UPH, UPROTEIN, USG, UROBILI, URINEBILI Urine Culture (last 1 year) No [...] p (more content not included)... Normal [facility] C-reactive protein measureme nt by high sensitivity methodOrdered By: Tab Dupont on 09-29-2024 C-Reactive Protein Extended Range 38.30 mg/L High 0.0-3.0 [facility] Comment on above: C-Reactive Protein ( CRP) provides useful information for thediagnosis, therapy and monitoring of inflammatory processesand associated diseases. For the evaluation of Relative Riskfor Cardiovascular Disease, a High Sensitivity CRP (HSCRP)should be ordered. CBC-Complete Blood Cnt No Di ffon 09-29-2024 Erythrocyte distribution width (RBC) [Ratio] 14.4 % Normal 11.6-14.6 [facility] Comment on above: Order Comment: 301.2 Performed By: #### L 100.0500, L500.4050, L501.6710, L101.9900 #### [facility] [address] [place], [address] Hematocrit (Bld) [Volume fraction] 40.3 % Normal 40-54 [facility] Comment on above: Order Comment: 301.2 Performed By: #### L 100.0500, L500.4050, L501.6710, L101.9900 #### [facility] [address] [place], [address] Hemoglobin (Bld) [Mass/Vol] 13.3 g/dL Normal 13.0-16.5 [facility] Comment on above: Order Comment: 301.2 Performed By: #### L 100.0500, L500.4050, L501.6710, L101.9900 #### [facility] [address] [place], [address] MCH (RBC) [Entitic mass] 31.4 pg Normal 27.0-32.0 [facility] Comment on above: Order Comment: 301.2 Performed By: #### L 100.0500, L500.4050, L501.6710, L101.9900 #### [facility] [address] [place], [address] MCHC (RBC) [Mass/Vol] 33.0 g/dL Normal 32-36 [facility] Comment on above: Order Comment: 301.2 Performed By: #### L 100.0500, L500.4050, L501.6710, L101.9900 #### [facility] [address] [place], [address] MCV (RBC) [Entitic vol] 95.0 fL High 80-94 [facility] Comment on above: Order Comment: 301.2 Performed By: #### L 100.0500, L500.4050, L501.6710, L101.9900 #### [facility] [address] [place], [address] Platelet mean volume (Bld) [Entitic vol] 10.6 fL Normal 6.2-12.0 [facility] Comment on above: Order Comment: 301.2 Performed By: #### L 100.0500, L500.4050, L501.6710, L101.9900 #### [facility] [address] [place], [address] Platelets (Bld) [#/Vol] 270 10*3/uL Normal 150-450 [facility] Comment on above: Order Comment: 301.2 Performed By: #### L 100.0500, L500.4050, L501.6710, L101.9900 #### [facility] [address] [place], [address] RBC (Bld) [#/Vol] 4.24 10*6/uL Low 4.6-6.2 [facility] Comment on above: Order Comment: 301.2 Performed By: #### L 100.0500, L500.4050, L501.6710, L101.9900 #### [facility] [address] [place], [address] RDW SD 50.0 fl High 35.1-43.9 [facility] Comment on above: Order Comment: 301.2 Performed By: #### L 100.0500, L500.4050, L501.6710, L101.9900 #### [facility] [address] [place], [address] WBC (Bld) [#/Vol] 8.7 10*3/uL Normal 4.4-11.0 [facility] Comment on above: Order Comment: 301.2 Performed By: #### L 100.0500, L500.4050, L501.6710, L101.9900 #### [facility] [address] [place], [address] CRPon 09-29-2024 C-REACTIVE PROT 38.30 mg/L High 0.0-3.0 [facility] Comment on above: Order Comment: 301.2 Result Comment: C-Re active Protein (CRP) provides useful information for the diagnosis, therapy and monitoring of inflammatory processes and associated diseases. For the evaluation of Relative Risk for Cardiovascular Disease, a High Sensitivity CRP (HSCRP) should be ordered. Performed By: #### L 100.0500, L500.4050, L501.6710, L101.9900 #### [facility] [address] [place], [address] Erythrocyte Sed Rateon 09-29 SED RATE 47 mm/hr High 0-20 [facility] Comment on above: Order Comment: 301.2 Performed By: #### L 100.0500, L500.4050, L501.6710, L101.9900 #### [facility] [address] [place], [address] Erythrocyte distribution wid th ratioOrdered By: Tab Dupont on 09-29-2024 Erythrocyte distribution width (RBC) [Ratio] 14.4 % 11.6-14.6 [facility] Erythrocyte distribution wid th standard deviationOrdered By: Tab Dupont on 09-29-2024 Erythrocyte distribution width (RBC) [Entitic vol] 50.0 fL High 35.1-43.9 [facility] Erythrocyte sedimentation ra teOrdered By: Tab Dupont on 09-29-2024 ESR (Bld) [Velocity] 47 mm/h High 0-20 [facility] Hematocrit Auto (Bld) [Volum e fraction]Ordered By: Tab Dupont on 09-29-2024 Hematocrit (Bld) [Volume fraction] 40.3 % 40-54 [facility] Hemoglobin measurementOrdere d By: Tab Dupont on 09-29-2024 Hemoglobin (Bld) [Mass/Vol] 13.3 g/dL 13.0-16.5 [facility] MCV (mean corpuscular volume ) determinationOrdered By: Tab Dupont on 09-29-2024 MCV (RBC) [Entitic vol] 95.0 fL High 80-94 [facility] Mean corpuscular hemoglobin (MCH) determinationOrdered By: Tab Dupont on 09-29-2024 MCH (RBC) [Entitic mass] 31.4 pg 27.0-32.0 [facility] Mean corpuscular hemoglobin concentration (MCHC) determinationOrdered By: Tab Dupont on 09-29-2024 MCHC (RBC) [Mass/Vol] 33.0 g/dL 32-36 [facility] Mean platelet volume determi nationOrdered By: Tab Dupont on 09-29-2024 Platelet mean volume (Bld) [Entitic vol] 10.6 fL 6.2-12.0 [facility] Platelet countOrdered By: Vinh Lehman on 09-29-2024 Platelets (Bld) [#/Vol] 270 10*3/uL 150-450 [facility] RBC Auto (Bld) [#/Vol]Ordere d By: Tab Dupont on 09-29-2024 RBC (Bld) [#/Vol] 4.24 10*6/uL Low 4.6-6.2 [facility] White blood cell (WBC) count Ordered By: Tab Dupont on 09-29-2024 WBC (Bld) [#/Vol] 8.7 10*3/uL 4.4-11.0 [facility] Basic Metabolic Profile (BMP )on 09-20-2024 BUN/CRE 26.4 RATIO High 10-20 [facility] Comment on above: Order Comment: 301.2 Performed By: #### L 100.0500, L500.4050, L501.6710, L101.9900 #### [facility] [address] [place], [address] CA,Total 8.2 mg/dL Low 8.5-10.1 [facility] Comment on above: Order Comment: 301.2 Performed By: #### L 100.0500, L500.4050, L501.6710, L101.9900 #### [facility] [address] [place], [address] Chloride [Moles/Vol] 107 mmol/L Normal 98-107 [facility] Comment on above: Order Comment: 301.2 Performed By: #### L 100.0500, L500.4050, L501.6710, L101.9900 #### [facility] [address] [place], [address] CO2 [Moles/Vol] 24.0 mmol/L Normal 21.0-32.0 [facility] Comment on above: Order Comment: 301.2 Performed By: #### L 100.0500, L500.4050, L501.6710, L101.9900 #### [facility] [address] [place], [address] Creatinine [Mass/Vol] 0.61 mg/dL Low 0.70-1.30 [facility] Comment on above: Order Comment: 301.2 Result Comment: The validity of the calculated GFR GFRAA in patients over 70 years has not been determined. Clinical correlation is essential. Performed By: #### L 100.0500, L500.4050, L501.6710, L101.9900 #### [facility] [address] [place], [address] EST GFR - AA 173 mL/min Normal >60 [facility] Comment on above: Order Comment: 301.2 Result Comment: Afri can Russian GFR Calc Performed By: #### L 100.0500, L500.4050, L501.6710, L101.9900 #### [facility] [address] [place], [address] GAP 6 Normal 5-15 [facility] Comment on above: Order Comment: 301.2 Performed By: #### L 100.0500, L500.4050, L501.6710, L101.9900 #### [facility] [address] [place], [address] GFR/1.73 sq M.predicted among non-blacks MDRD (S/P/Bld) [Vol rate/Area] 143 mL/min/{1.73_m2} Normal >60 [facility] Comment on above: Order Comment: 301.2 Result Comment: Non- GFR Calc Performed By: #### L 100.0500, L500.4050, L501.6710, L101.9900 #### [facility] [address] [place], [address] Glucose [Mass/Vol] 134 mg/dL High 74-106 [facility] Comment on above: Order Comment: 301.2 Result Comment: Fast ing Glucose result greater than or equal to 126 mg/dL suggests DIABETES MELLITUS per A.D.A. criteria. Performed By: #### L 100.0500, L500.4050, L501.6710, L101.9900 #### [facility] [address] [place], [address] Potassium [Moles/Vol] 3.3 mmol/L Low 3.5-5.1 [facility] Comment on above: Order Comment: 301.2 Performed By: #### L 100.0500, L500.4050, L501.6710, L101.9900 #### [facility] [address] [place], [address] Sodium [Moles/Vol] 137 mmol/L Normal 136-145 [facility] Comment on above: Order Comment: 301.2 Performed By: #### L 100.0500, L500.4050, L501.6710, L101.9900 #### [facility] [address] [place], [address] Urea nitrogen [Mass/Vol] 16 mg/dL Normal 7-18 [facility] Comment on above: Order Comment: 301.2 Performed By: #### L 100.0500, L500.4050, L501.6710, L101.9900 #### [facility] [address] [place], [address] Blood urea nitrogen (BUN)/cr eatinine ratioOrdered By: Tab Dupont on 09-20-2024 Urea nitrogen/Creatinine [Mass ratio] 26.4 mg/mg High 10- [facility] Carbon dioxide measurementOr dered By: Tab Dupont on 09-20-2024 CO2 [Moles/Vol] 24.0 mmol/L 21.0-32.0 [facility] Chloride measurementOrdered By: Tab Dupont on 09-20-2024 Chloride [Moles/Vol] 107 mmol/L 98-107 [facility] Estimated glomerular filtrat ion rate (GFR) AmericanOrdered By: Tab Dupont on 09-20-2024 Estimated GFR (MDRD) Amer 173 mL/min >60 [facility] Comment on above: GFR Calc Glomerular filtration rate ( GFR) estimationOrdered By: Tab Dupont on 09-20-2024 Estimated GFR (MDRD) Non-Af Amer 143 mL/min >60 [facility] Comment on above: Non- GFR Calc Glucose measurementOrdered B y: Tab Dupont on 09-20-2024 Glucose [Mass/Vol] 134 mg/dL High 74-106 [facility] Comment on above: Fasting Glucose resu lt greater than or equal to 126 mg/dL suggests DIABETES MELLITUS per A.D.A. criteria. Potassium measurementOrdered By: Tab Dupont on 09-20-2024 Potassium [Moles/Vol] 3.3 mmol/L Low 3.5-5.1 [facility] Serum anion gap measurementO rdered By: Tab Dupont on 09-20-2024 Anion gap [Moles/Vol] 6 mmol/L 5-15 [facility] Serum or plasma calcium randall urement (mass/volume)Ordered By: Tab Dupont on 09-20-2024 Calcium [Mass/Vol] 8.2 mg/dL Low 8.5-10.1 [facility] Serum or plasma creatinine m easurement (mass/volume)Ordered By: Tab Dupont on 09-20-2024 Creatinine [Mass/Vol] 0.61 mg/dL Low 0.70-1.30 [facility] Comment on above: The validity of the calculated GFR & GFRAA in patients over 70 years has not been determined. Clinical correlation is essential. Serum or plasma urea nitroge n measurement (mass/volume)Ordered By: Tab Dupont on 09-20-2024 Urea nitrogen [Mass/Vol] 16 mg/dL 04-21 [facility] Sodium levelOrdered By: Omar Dupont on 09-20-2024 Sodium [Moles/Vol] 137 mmol/L 136-145 [facility] Progress Noteson 08-22-2024 Project Drilling Engineer Authentication Interface Message Text Rheumatology New visit [...] Resource Strain: Low Risk (04/24/2023) Received from [facility] Overall Financial Resource Strain (CARDIA) Difficulty of Paying Living Expenses: Not hard at all Food Insecurity: No Food Insecurity (05/18/2024) Received from [facility] Hunger Vital Sign Worried About Running Out of Food in the Last Year: Never true Ran Out of Food in the Last Year: Never true Transportation Needs: No Transportation Needs (05/18/2024) Received from [facility] PRAPARE - Transportation Lack of Transportation (Medical): No Lack of Transportation (Non-Medical): No Intimate Partner Violence: Not At Risk (05/18/2024) Received from [facility] Humiliation, Afraid, Rape, and Kick questionnaire Fear [...] - (more content not included)... Normal [facility] Telephone Encounteron 2023 Project Drilling Engineer [employer] Interface Message Text Spoke with Doug at Care Facility where pt resides and given the date and time of MOWER OPERATOR video visit with Dr. Shultz at 8:20 am on 08/22/24. This information will be relayed to pt. Normal [facility] Addendum Noteon 08-01-2024 Project Drilling Engineer Authentication Interface Message Text Addended by: FAISAL SIMEON on: 08/01/2024 02:57 PM Modules accepted: Level of Service Normal [facility] Patient Instructionson 08-01 Project Drilling Engineer Authentication Interface Message Text -Continue PT/OT -Please follow your appoitment with pain team and rheumatology -You are scheduled for bladder study on 09/30/24 -continue scheduled bowel care daily Normal [facility] Progress Noteson 07-31-2024 Project Drilling Engineer Authentication Interface Message Text Documentation: Mode: Video [...] following spinal surgery ~2 yrs ago in [place] . In 2019, pt had his first back surgery performed by [facility] which was an interbody fusion. 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 At that point, the hospital took the hardware out and did not replace it with the goal of treating the infection. 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 After the infection was treated, [facility] extended his fusion, decompressed the back, and replaced all hardware. At that time he lost all motor and sensation to his lower extremities. He was independent uptill december 2021 till his last spine surgery two year ago.Since 2021 he is in group home and he changes 5 group home so far. Currently SNF in [facility]. Last seen on 06/13/24 in clinic and recommendations was: -Continue PT/OT -Bowel care: schedule bowel care once/day (either after breakfast or dinner) - using suppository and manual stimulation over commode chair will be more helpful than over bed . - Continue skin care - Follow [facility] service consult( we requested today ) [...] healing- being followed with wound care at group home. -Continued PT/OT in group home -Spine team see him after MRI [...] to display Other SOCIAL Home situation: NA CLERICAL ADJUDICATOR/RN: Currently in assisted - [place] in [facility] DME: Power wheelchair, manual wheelchair Income/BWC: Social [...] sev (more content not included)... Normal [facility] MR C-SPINE W/Oon 07-11-2024 MR C-SPINE [...] the right cerebellum. 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 MACRO: None [employer] MR T-SPINE W/Oon 07-11-2024 MR T-SPINE W/O [...] T5 and T2. MACRO: None Normal [facility] MR Thoracic spine WO contras ton [...] of T11, T5 and T2. MACRO: None [facility] MR Thoracic spine WO contras tOrdered By: Del Leslie on 07-11-2024 [facility] Work Phone: No Panel Informationon 07-10 Radiology Study observation (narrative) [facility] Basic Metabolic Profile (BMP )on 07-04-2024 BUN/CRE 18.2 RATIO Normal 10-20 [facility] Comment on above: Order Comment: SRIKANTH TER SPECIMEN Performed By: #### L 400.0001, #### [facility] [address] [place], [address] CA,Total 8.6 mg/dL Normal 8.5-10.1 [facility] Comment on above: Order Comment: SRIKANTH TER SPECIMEN Performed By: #### L 400.0001, #### [facility] [address] [place], [address] Chloride [Moles/Vol] 108 mmol/L High 98-107 [facility] Comment on above: Order Comment: SRIKANTH TER SPECIMEN Performed By: #### L 400.0001, #### [facility] [address] [place], [address] CO2 [Moles/Vol] 25.0 mmol/L Normal 21.0-32.0 [facility] Comment on above: Order Comment: SRIKANTH TER SPECIMEN Performed By: #### L 400.0001, #### [facility] [address] [place], [address] Creatinine [Mass/Vol] 0.50 mg/dL Low 0.70-1.30 [facility] Comment on above: Order Comment: SRIKANTH TER SPECIMEN Result Comment: The validity of the calculated GFR GFRAA in patients over 70 years has not been determined. Clinical correlation is essential. Performed By: #### L 400.0001, #### [facility] [address] [place], [address] EST GFR - AA 219 mL/min Normal >60 [facility] Comment on above: Order Comment: SRIKANTH TER SPECIMEN Result Comment: Afri can Russian GFR Calc Performed By: #### L 400.0001, #### [facility] [address] [place], [address] GAP 7 Normal 5-15 [facility] Comment on above: Order Comment: SRIKANTH TER SPECIMEN Performed By: #### L 400.0001, #### [facility] [address] [place], [address] GFR/1.73 sq M.predicted among non-blacks MDRD (S/P/Bld) [Vol rate/Area] 181 mL/min/{1.73_m2} Normal >60 [facility] Comment on above: Order Comment: SRIKANTH TER SPECIMEN Result Comment: Non- GFR Calc Performed By: #### L 400.0001, #### [facility] [address] [place], [address] Glucose [Mass/Vol] 86 mg/dL Normal 74-106 [facility] Comment on above: Order Comment: SRIKANTH TER SPECIMEN Performed By: #### L 400.0001, #### [facility] [address] [place], [address] Potassium [Moles/Vol] 3.8 mmol/L Normal 3.5-5.1 [facility] Comment on above: Order Comment: SRIKANTH TER SPECIMEN Performed By: #### L 400.0001, #### [facility] [address] [place], [address] Sodium [Moles/Vol] 140 mmol/L Normal 136-145 [facility] Comment on above: Order Comment: SRIKANTH TER SPECIMEN Performed By: #### L 400.0001, #### [facility] [address] [place], [address] Urea nitrogen [Mass/Vol] 9 mg/dL Normal 7-18 [facility] Comment on above: Order Comment: SRIKANTH TER SPECIMEN Performed By: #### L 400.0001, #### [facility] [address] [place], [address] CBC-Complete Blood Cnt No Di ffon 07-04-2024 Erythrocyte distribution width (RBC) [Ratio] 14.8 % High 11.6-14.6 [facility] Comment on above: Order Comment: SRIKANTH TER SPECIMEN Performed By: #### L 400.0001, #### [facility] [address] [place], [address] Hematocrit (Bld) [Volume fraction] 39.4 % Low 40-54 [facility] Comment on above: Order Comment: SRIKANTH TER SPECIMEN Performed By: #### L 400.0001, #### [facility] [address] [place], [address] Hemoglobin (Bld) [Mass/Vol] 12.7 g/dL Low 13.0-16.5 [facility] Comment on above: Order Comment: SRIKANTH TER SPECIMEN Performed By: #### L 400.0001, #### [facility] [address] [place], [address] MCH (RBC) [Entitic mass] 30.3 pg Normal 27.0-32.0 [facility] Comment on above: Order Comment: SRIKANTH TER SPECIMEN Performed By: #### L 400.0001, #### [facility] [address] [place], [address] MCHC (RBC) [Mass/Vol] 32.2 g/dL Normal 32-36 [facility] Comment on above: Order Comment: SRIKANTH TER SPECIMEN Performed By: #### L 400.0001, #### [facility] [address] [place], [address] MCV (RBC) [Entitic vol] 94.0 fL Normal 80-94 [facility] Comment on above: Order Comment: SRIKANTH TER SPECIMEN Performed By: #### L 400.0001, #### [facility] [address] [place], [address] Platelet mean volume (Bld) [Entitic vol] 11.0 fL Normal 6.2-12.0 [facility] Comment on above: Order Comment: SRIKANTH TER SPECIMEN Performed By: #### L 400.0001, #### [facility] [address] [place], [address] Platelets (Bld) [#/Vol] 260 10*3/uL Normal 150-450 [facility] Comment on above: Order Comment: SRIKANTH TER SPECIMEN Performed By: #### L 400.0001, #### [facility] [address] [place], [address] RBC (Bld) [#/Vol] 4.19 10*6/uL Low 4.6-6.2 [facility] Comment on above: Order Comment: SRIKANTH TER SPECIMEN Performed By: #### L 400.0001, #### [facility] [address] [place], [address] RDW SD 51.5 fl High 35.1-43.9 [facility] Comment on above: Order Comment: SRIKANTH TER SPECIMEN Performed By: #### L 400.0001, #### [facility] [address] [place], [address] WBC (Bld) [#/Vol] 7.4 10*3/uL Normal 4.4-11.0 [facility] Comment on above: Order Comment: SRIKANTH TER SPECIMEN Performed By: #### L 400.0001, #### [facility] [address] [place], [address] BD BONE DENSITY SURVEYon BD BONE DENSITY SURVEY EXAMINATION: BD B ONE DENSITY SURVEY 07/01/2024 11:31 AM CLINICAL HISTORY: sacral insufficiency ASSOCIATED DIAGNOSIS: Sacral insufficiency fracture, initial encounter ADDITIONAL CLINICAL INFORMATION:Indicatio ns: History of Fracture (Adult) TREATMENTS: ORDERING PROVIDER: OTIS MEJIA TECHNOLOGISTS NOTE: TECHNIQUE: Quantitative digital radiography for DEXA bone mineral assessment was performed using the SkadoitigScalado densitometer. Following are the results for your [...] online ([email or web address] via a link on the Vicino screen. The model calculates the 10-yr probability of hip fracture or any major osteoporotic fracture (vertebral, hip, forearm, or humerus fracture), using clinical populations, and applies only to previously-untreated patients. (FRAX-friendly) T-scores, as calculated using the [facility] link, should be used in the model. [...] the expected range for age. Normal [facility] Urine Cultureon 06-17-2024 [facility] Pseudomonas aeruginosa [place] Count 80,000-100,000 Pseudomonas aeruginosa: REACTION Cefepime Islt HARINDER 2 S Ciprofloxacin Islt HARINDER 1 S Imipenem Islt HARINDER 1 S levoFLOXacin Islt HARINDER 4 I Pip+Tazo Islt HARINDER <=4 S Tobramycin Islt HARINDER 2 S Normal [facility] Comment on above: Performed By: #### L 100.0500, L500.4050, L501.6710, L101.9900 #### [facility] [address] [place], [address] 36on 06-16-2024 36 Scheduled appointment Normal [facility] 36 Doug is calling in again wanting to rescheduled they can be reached at the office anytime before 3pm. Please advise and thank you [facility] Addendum Noteon 06-16-2024 Project Drilling Engineer Authentication Interface Message Text Addended by: FAISAL SIMEON on: 06/16/2024 09:13 PM Modules accepted: Level of Service Normal [facility] 36on 06-15-2024 36 LM for Doug to call the office to discuss the pt Normal [facility] 36 Name of caller: Dax banks Contact phone number: [phone] Relationship to Patient: sanctuary Provider: chepe Practice: pain management Chief Complaint/Reason for Call: doug is calling in wanting to speak to the main office. Please advise and thank you Best time of day caller can be reached: any Patient advised that office/PCP has 24-48 business hours to return their call: Yes Normal [facility] Urinalysis, Completeon 06-15 RBC 25-50 SEEN Normal 0-5 [facility] Comment on above: Order Comment: 301.2 Performed By: #### L 100.0500, L500.4050, L501.6710, L101.9900 #### [facility] [address] [place], [address] BACTERIA 2+ /hpf Normal None Seen [facility] Comment on above: Order Comment: 301.2 Performed By: #### L 100.0500, L500.4050, L501.6710, L101.9900 #### [facility] [address] [place], [address] WBC 25-50 SEEN Normal 0-5 [facility] Comment on above: Order Comment: 301.2 Performed By: #### L 100.0500, L500.4050, L501.6710, L101.9900 #### [facility] [address] [place], [address] EPI,SQUAMOUS 0 SEEN Normal 0-5 [facility] Comment on above: Order Comment: 301.2 Performed By: #### L 100.0500, L500.4050, L501.6710, L101.9900 #### [facility] [address] [place], [address] Mucus Ql (Urine sed) 0 SEEN Normal [facility] Comment on above: Order Comment: 301.2 Performed By: #### L 100.0500, L500.4050, L501.6710, L101.9900 #### [facility] [address] [place], [address] Telephone Encounteron 2023 Project Drilling Engineer Authentication Interface Message Text RTC to pt, left voice mail. Vladimir Borden [facility] Mold Filler [phone] Normal [facility] Patient Instructionson 06-13 Project Drilling Engineer Authentication Interface Message Text -Continue PT/OT -Bowel care: schedule bowel care once/day (either after breakfast or dinner) - using suppository and manual stimulation over commode chair will be more helpful than over bed . - Continue skin care - Follow [facility] service consult( we requested today ) for benefits eligibility - Bladder: We ordered today Urodynamic study for your bladder evaluation (to see your bladder status post spinal cord injury) Normal [facility] Progress Noteson 06-13-2024 Project Drilling Engineer Authentication Interface Message Text Patient was identified by name and date of . Evelio Grey Normal [facility] Progress Noteson 06-12-2024 Project Drilling Engineer Authentication Interface Message Text SPINAL CORD INJURY [...] following spinal surgery ~2 yrs ago in [place] . In 2019, pt had his first back surgery performed by [facility] which was an interbody fusion. 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 At that point, the hospital took the hardware out and did not replace it with the goal of treating the infection. 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 After the infection was treated, [facility] extended his fusion, decompressed the [...] their presence. Since 2021 he is in group home and he changes 5 group home so far. Currently SNF in [facility]. He has Ureter stent - recently at [facility] Medication, PMHx/PSHx, Fam Hx, Allergy, Problem List, [...] to display Other SOCIAL Home situation: NA CLERICAL ADJUDICATOR/RN: Currently in assisted - [place] in [facility] DME: Power wheelchair, manual wheelchair Income/BWC: Social [...] 01/23/2022 (more content not included)... Normal [facility] CBC-Complete Blood Cnt No Di ffon 05-30-2024 Erythrocyte distribution width (RBC) [Ratio] 15.4 % High 11.6-14.6 [facility] Comment on above: Order Comment: SRIKANTH TER SPECIMEN Performed By: #### L 400.0001, #### [facility] [address] [place], [address] Hematocrit (Bld) [Volume fraction] 36.7 % Low 40-54 [facility] Comment on above: Order Comment: SRIKANTH TER SPECIMEN Performed By: #### L 400.0001, #### [facility] [address] [place], [address] Hemoglobin (Bld) [Mass/Vol] 12.0 g/dL Low 13.0-16.5 [facility] Comment on above: Order Comment: SRIKANTH TER SPECIMEN Performed By: #### L 400.0001, #### [facility] [address] [place], [address] MCH (RBC) [Entitic mass] 30.5 pg Normal 27.0-32.0 [facility] Comment on above: Order Comment: SRIKANTH TER SPECIMEN Performed By: #### L 400.0001, #### [facility] [address] [place], [address] MCHC (RBC) [Mass/Vol] 32.7 g/dL Normal 32-36 [facility] Comment on above: Order Comment: SRIKANTH TER SPECIMEN Performed By: #### L 400.0001, #### [facility] [address] [place], [address] MCV (RBC) [Entitic vol] 93.1 fL Normal 80-94 [facility] Comment on above: Order Comment: SRIKANTH TER SPECIMEN Performed By: #### L 400.0001, #### [facility] [address] [place], [address] Platelet mean volume (Bld) [Entitic vol] 11.1 fL Normal 6.2-12.0 [facility] Comment on above: Order Comment: SRIKANTH TER SPECIMEN Performed By: #### L 400.0001, #### [facility] [address] [place], [address] Platelets (Bld) [#/Vol] 219 10*3/uL Normal 150-450 [facility] Comment on above: Order Comment: SRIKANTH TER SPECIMEN Performed By: #### L 400.0001, #### [facility] [address] [place], [address] RBC (Bld) [#/Vol] 3.94 10*6/uL Low 4.6-6.2 [facility] Comment on above: Order Comment: SRIKANTH TER SPECIMEN Performed By: #### L 400.0001, #### [facility] [address] [place], [address] RDW SD 53.4 fl High 35.1-43.9 [facility] Comment on above: Order Comment: SRIKANTH TER SPECIMEN Performed By: #### L 400.0001, #### [facility] [address] [place], [address] WBC (Bld) [#/Vol] 5.9 10*3/uL Normal 4.4-11.0 [facility] Comment on above: Order Comment: SRIKANTH TER SPECIMEN Performed By: #### L 400.0001, #### [facility] [address] [place], [address] Comprehensive Metabolic Prof ilon 05-30-2024 Albumin [Mass/Vol] 2.6 g/dL Low 3.2-5.0 [facility] Comment on above: Order Comment: SRIKANTH TER SPECIMEN Performed By: #### L 400.0001, #### [facility] [address] [place], [address] Albumin/Globulin [Mass ratio] 0.6 {ratio} Low 0.9-2.4 [facility] Comment on above: Order Comment: SRIKANTH TER SPECIMEN Performed By: #### L 400.0001, #### [facility] [address] [place], [address] ALK P 178 U/L High 45-117 [facility] Comment on above: Order Comment: SRIKANTH TER SPECIMEN Performed By: #### L 400.0001, #### [facility] [address] [place], [address] ALT [Catalytic activity/Vol] 24 U/L Normal 16-61 [facility] Comment on above: Order Comment: SRIKANTH TER SPECIMEN Performed By: #### L 400.0001, #### [facility] [address] [place], [address] AST [Catalytic activity/Vol] 19 U/L Normal 15-37 [facility] Comment on above: Order Comment: SRIKANTH TER SPECIMEN Performed By: #### L 400.0001, #### [facility] [address] [place], [address] Bilirubin [Mass/Vol] 0.60 mg/dL Normal 0.20-1.00 [facility] Comment on above: Order Comment: SRIKANTH TER SPECIMEN Result Comment: For patients on eltrombopag therapy, use of Dimension Orestes TBIL is not recommended. Performed By: #### L 400.0001, #### [facility] [address] [place], [address] BUN/CRE 15.9 RATIO Normal 10-20 [facility] Comment on above: Order Comment: SRIKANTH TER SPECIMEN Performed By: #### L 400.0001, #### [facility] [address] [place], [address] CA,Total 8.6 mg/dL Normal 8.5-10.1 [facility] Comment on above: Order Comment: SRIKANTH TER SPECIMEN Performed By: #### L 400.0001, #### [facility] [address] [place], [address] Chloride [Moles/Vol] 108 mmol/L High 98-107 [facility] Comment on above: Order Comment: SRIKANTH TER SPECIMEN Performed By: #### L 400.0001, #### [facility] [address] [place], [address] CO2 [Moles/Vol] 23.0 mmol/L Normal 21.0-32.0 [facility] Comment on above: Order Comment: SRIKANTH TER SPECIMEN Performed By: #### L 400.0001, #### [facility] [address] [place], [address] Creatinine [Mass/Vol] 0.50 mg/dL Low 0.70-1.30 [facility] Comment on above: Order Comment: SRIKANTH TER SPECIMEN Result Comment: The validity of the calculated GFR GFRAA in patients over 70 years has not been determined. Clinical correlation is essential. Performed By: #### L 400.0001, .0 #### [facility] [address] [place], [address] EST GFR - AA 214 mL/min Normal >60 [facility] Comment on above: Order Comment: SRIKANTH TER SPECIMEN Result Comment: Afri can Russian GFR Calc Performed By: #### L 400.0001, .2199 #### [facility] [address] [place], [address] GAP 6 Normal 5-15 [facility] Comment on above: Order Comment: SRIKANTH TER SPECIMEN Performed By: #### L 400.0001, #### [facility] [address] [place], [address] GFR/1.73 sq M.predicted among non-blacks MDRD (S/P/Bld) [Vol rate/Area] 177 mL/min/{1.73_m2} Normal >60 [facility] Comment on above: Order Comment: SRIKANTH TER SPECIMEN Result Comment: Non- GFR Calc Performed By: #### L 400.0001, #### [facility] [address] [place], [address] Globulin (S) [Mass/Vol] 4.2 g/dL Normal 2.2-4.2 [facility] Comment on above: Order Comment: SRIKANTH TER SPECIMEN Performed By: #### L 400.0001, #### [facility] [address] [place], [address] Glucose [Mass/Vol] 185 mg/dL High 74-106 [facility] Comment on above: Order Comment: SRIKANTH TER SPECIMEN Result Comment: Fast ing Glucose result greater than or equal to 126 mg/dL suggests DIABETES MELLITUS per A.D.A. criteria. Performed By: #### L 400.0001, M100.0 #### [facility] [address] [place], [address] Potassium [Moles/Vol] 3.8 mmol/L Normal 3.5-5.1 [facility] Comment on above: Order Comment: SRIKANTH TER SPECIMEN Performed By: #### L 400.0001, M100.2200 #### [facility] [address] [place], [address] Sodium [Moles/Vol] 137 mmol/L Normal 136-145 [facility] Comment on above: Order Comment: SRIKANTH TER SPECIMEN Performed By: #### L 400.0001, M100.0 #### [facility] [address] [place], [address] T PROT 6.8 g/dL Normal 6.4-8.2 [facility] Comment on above: Order Comment: SRIKANTH TER SPECIMEN Performed By: #### L 400.0001, M100.2200 #### [facility] [address] [place], [address] Urea nitrogen [Mass/Vol] 8 mg/dL Normal 7-18 [facility] Comment on above: Order Comment: SRIKANTH TER SPECIMEN Performed By: #### L 400.0001, M100.0 #### [facility] [address] [place], [address] Bacteria identified Cx Nom ( Bld)on 05-22-2024 Interpretation and review of laboratory results Normal [facility] Blood Collection Site: Left Arm [facility] Blood Collection Site: Left Antecubital [facility] 05-22-2024 [place] Called Carlos Flower's dispatch, new ETA is around 1900. [facility] CARECOPENDLETON CARE COORDINATION DAILY NOTE/UPDATE Discharge Plan: [facility] This TCC was tasked to follow this patient through the weekend assisting with discharge planning. Chart was reviewed. Met with patient at bedside to confirm if he would like to return to [facility]. Patient agreeable to return. Messaged attending and infectious disease to see if patient is able to discharge today. Discharge order placed. Scheduled discharge transportation in [employer], warehouse order picker time confirmed for 05/22 at 1600. Bedside nurse notified of transport and will update patient and family of plan Facility notified of transportation time and discharge documents including After Visit Summary, MAR, LABS, and Vitals were uploaded into [employer] for review. Normal [facility] CBC (HEMOGRAM)on 05-22-2024 Erythrocyte distribution width (RBC) [Ratio] 15.1 % High 11.5-15.0 [facility] Comment on above: Performed By: #### L AB294 ####Fan Installer: BIANCA NICHOLS ([id number])[address] Hematocrit (Bld) [Volume fraction] 38.4 % Low 40.0-52.0 [facility] Comment on above: Performed By: #### L AB294 ####Fan Installer: BIANCA [id number])[address] Hemoglobin (Bld) [Mass/Vol] 12.8 g/dL Low 13.0-18.0 [facility] Comment on above: Performed By: #### L AB294 ####Fan Installer: BIANCA NICHOLS ([id number])[address] MCH (RBC) [Entitic mass] 30.4 pg Normal 26.0-34.0 [facility] Comment on above: Performed By: #### L AB294 ####Fan Installer: BIANCA [id number])[address] MCHC 33.3 % Normal 30.5-36.0 [facility] Comment on above: Performed By: #### L AB294 ####Fan Installer: BIANCA NICHOLS ([id number])[facility])[address] [place] [address] MCV (RBC) [Entitic vol] 91.2 fL Normal 77.0-99.0 [facility] Comment on above: Performed By: #### L AB294 ####Fan Installer: BIANCA NICHOLS ([id number])[facility])[address] [place] [address] Platelet mean volume (Bld) [Entitic vol] 10.6 fL Normal 9.0-12.7 [facility] Comment on above: Performed By: #### L AB294 ####Fan Installer: BIANCA NICHOLS ([id number])[facility])[address] [place] [address] Platelets (Bld) [#/Vol] 209 10*3/uL Normal 140-440 [facility] Comment on above: Performed By: #### L AB294 ####Fan Installer: BIANCA NICHOLS ([id number])[facility])[address] [place] [address] RBC (Bld) [#/Vol] 4.21 10*6/uL Low 4.40-5.90 [facility] Comment on above: Performed By: #### L AB294 ####Fan Installer: BIANCA NICHOLS ([id number])[facility])[address] [place] [address] WBC (Bld) [#/Vol] 6.4 10*3/uL Normal 3.6-10.7 [facility] Comment on above: Performed By: #### L AB294 ####Fan Installer: BIANCA NICHOLS ([id number])[facility])[address] [place] [address] CBC panel Auto (Bld)on 05-22 Erythrocyte distribution width (RBC) [Ratio] 15.1 % High 11.5 - 15.0 % [facility] Hematocrit (Bld) [Volume fraction] 38.4 % Low 40.0 - 52.0 % [facility] Hemoglobin (Bld) [Mass/Vol] 12.8 g/dL Low 13.0 - 18.0 g/dL [facility] Interpretation and review of laboratory results Abnormal [facility] MCH (RBC) [Entitic mass] 30.4 pg 26. 0 - 34.0 pg [facility] MCHC (RBC) [Mass/Vol] 33.3 % 30.5 - 36.0 % [facility] MCV (RBC) [Entitic vol] 91.2 fL 77.0 - 99.0 fL [facility] Platelet mean volume (Bld) [Entitic vol] 10.6 fL 9.0 - 12.7 fL [facility] Platelets (Bld) [#/Vol] 209 10*3/uL 140 - 440 10*3/uL [facility] RBC (Bld) [#/Vol] 4.21 10*6/uL Low 4.40 - 5.9 0 10*6/uL [facility] WBC (Bld) [#/Vol] 6.4 10*3/uL 3.6 - 10.7 10*3/uL [facility] COMPREHENSIVE METABOLIC PANE Antonio 05-22-2024 Albumin [Mass/Vol] 3.1 g/dL Low 3.5-5.0 [facility] Comment on above: Performed By: #### L AB17 ####Fan Installer: BIANCA NICHOLS ([id number])[address] ALP [Catalytic activity/Vol] 151 U/L High 38-126 [facility] Comment on above: Performed By: #### L AB17 ####Fan Installer: BIANCA NICHOLS ([id number])[address] ALT [Catalytic activity/Vol] 22 U/L Normal 0-49 [facility] Comment on above: Performed By: #### L AB17 ####Fan Installer: BIANCA NICHOLS ([id number])[place] [address] [place] Anion gap [Moles/Vol] 5 mmol/L Normal 3-13 [facility] Comment on above: Performed By: #### L AB17 ####Fan Installer: BIANCA NICHOLS ([id number])[facility] [place] [address] AST [Catalytic activity/Vol] 25 U/L Normal 15-46 [facility] Comment on above: Performed By: #### L AB17 ####Fan Installer: BIANCA NICHOLS ([id number])[facility] ([facility])[address] [place] [address] Bilirubin [Mass/Vol] 0.6 mg/dL Normal 0.2-1.3 [facility] Comment on above: Performed By: #### L AB17 ####Fan Installer: BIANCA NICHOLS ([id number])[facility] ([facility])[address] [place] [address] Calcium [Mass/Vol] 8.4 mg/dL Normal 8.4-10.4 [facility] Comment on above: Performed By: #### L AB17 ####Fan Installer: BIANCA NICHOLS ([id number])[facility] ([facility])[address] [place] [address] Chloride [Moles/Vol] 107 mmol/L Normal 98-107 [facility] Comment on above: Performed By: #### L [id number] ####Fan Installer: BIANCA NICHOLS ([id number])[facility] ([facility])[address] [place] [address] CO2 [Moles/Vol] 22 mmol/L Normal 22-30 [facility] Comment on above: Performed By: #### L [id number] ####Fan Installer: BIANCA NICHOLS ([id number])[facility])[address] [place] [address] Creatinine [Mass/Vol] 0.54 mg/dL Low 0.66-1.25 [facility] Comment on above: Performed By: #### L [id number] ####Fan Installer: BIANCA NICHOLS ([id number])[facility])[address] [place] [address] GLOMERULAR FILTRATION RATE ML/MIN/1.73 SQ M.PREDICTED >90.0 Normal >60.0 [facility] Comment on above: Result Comment: Calc ulation based on the Chronic Kidney Disease Epidemiology Collaboration (CKD-EPI) equation refit without adjustment for race Performed By: #### L [id number] ####Fan Installer: BIANCA NICHOLS ([id number])[facility] ([facility])[address] [place] [address] Glucose [Mass/Vol] 144 mg/dL High 70-100 [facility] Comment on above: Performed By: #### L [id number] ####Fan Installer: BIANCA NICHOLS ([id number])[facility] ([facility])[address] [place] [address] Potassium [Moles/Vol] 3.9 mmol/L Normal 3.5-5.1 [facility] Comment on above: Performed By: #### L [id number] ####Fan Installer: BIANCA NICHOLS ([phone])[facility] ([facility])[address] [place] [address] Protein [Mass/Vol] 6.3 g/dL Normal 6.3-8.2 [facility] Comment on above: Performed By: #### L [id number] ####Fan Installer: BIANCA NICHOLS ([id number])[facility] ([facility])[address] [place] [address] [place] Sodium [Moles/Vol] 135 mmol/L Normal 135-145 [facility] Comment on above: Performed By: #### L [id number] ####Fan Installer: BIANCA NICHOLS ([id number])[facility])[address] [place] [address] [place] Urea nitrogen [Mass/Vol] 13 mg/dL Normal 9-20 [facility] Comment on above: Performed By: #### L [id number] ####Fan Installer: BIANCA NICHOLS ([phone])[facility] ([facility])[address] [place] [address] [facility] Comprehensive metabolic 1998 panelon 05-22-2024 Albumin [Mass/Vol] 3.1 g/dL Low 3.5 - 5.0 g/dL [facility] ALP [Catalytic activity/Vol] 151 U/L High 38 - 126 U/L [facility] ALT [Catalytic activity/Vol] 22 U/L 0 - 49 U/L [facility] Anion gap [Moles/Vol] 5 mmol/L 3 - 13 mmol/L [facility] AST [Catalytic activity/Vol] 25 U/L 15 - 46 U/L [facility] Bilirubin [Mass/Vol] 0.6 mg/dL 0.2 - 1 .3 mg/dL [facility] Calcium [Mass/Vol] 8.4 mg/dL 8.4 - 10. 4 mg/dL [facility] Chloride [Moles/Vol] 107 mmol/L 98 - 10 7 mmol/L [facility] CO2 [Moles/Vol] 22 mmol/L 22 - 30 mmol/L [facility] Creatinine [Mass/Vol] 0.54 mg/dL Low 0.66 - 1.25 mg/dL [facility] GFR/1.73 sq M.predicted (S/P/Bld) [Vol rate/Area] - PINF [facility] Comment on above: Calculation based on the Chronic Kidney Disease Epidemiology Collaboration (CKD-EPI) equation refit without adjustment for race Glucose [Mass/Vol] 144 mg/dL High 70 - 100 mg/dL [facility] Interpretation and review of laboratory results Abnormal [facility] Potassium [Moles/Vol] 3.9 mmol/L 3.5 - 5.1 mmol/L [facility] Protein [Mass/Vol] 6.3 g/dL 6.3 - 8.2 g/dL [facility] Sodium [Moles/Vol] 135 mmol/L 135 - 145 mmol/L [facility] Urea nitrogen [Mass/Vol] 13 mg/dL 9 - 20 mg/dL [facility] IDNon 05-22-2024 IDN Problem: Knowledge Deficit Goal: [...] Nutritional Intake Outcome: Adequate for Discharge Normal [facility] Laboratory - Chemistry and C hemistry - challengeon 05-22-2024 Glucose [Mass/Vol] 177 mg/dL High 70 - 100 mg/dL [facility] Glucose [Mass/Vol] 325 mg/dL High 70 - 100 mg/dL [facility] Glucose [Mass/Vol] 133 mg/dL High 70 - 100 mg/dL [facility] Laboratory - Microbiology an d Antimicrobial susceptibilityon 05-22-2024 Bacteria identified Cx Nom (Bld) No growth at 5 days [facility] No Panel Informationon 05-22 Interpretation and review of laboratory results Abnormal [facility] Performed by: [facility], [address] [place] [address] CLIA ID: [id number] [facility] Interpretation and review of laboratory results Abnormal [facility] Performed by: [facility], [address] [place] [id number] CLIA ID: [id number] [facility] Interpretation and review of laboratory results Abnormal [facility] Performed by: [facility], [address] [place] [address] CLIA ID: [id number] [facility] Nursing Noteon 05-22-2024 Nursing Note Transport arranged for 1600. Belongings packed and paperwork finished. Carlos Montelongo update: 45 minutes. Elly Cormier RN Normal [facility] Nursing Note Santana catheter leaking since last night. Dr. Mahajan paged via secure chat. Catheter to be replaced. Patient informed me that they use a 18 mauritian santana at the group home. A 16 mauritian was previously in. Urology cart was ordered, and a 18 mauritian santana was placed with 500 mL output. Larger balloon, filled with 25 mL. No leaking. Will continue to monitor. Elly Cormier RN Normal [facility] CBC (HEMOGRAM)on 05-21-2024 Erythrocyte distribution width (RBC) [Ratio] 15.0 % Normal 11.5-15.0 [facility] Comment on above: Performed By: #### L [id number] ####Fan Installer: BIANCA NICHOLS ([id number])[address] Hematocrit (Bld) [Volume fraction] 37.5 % Low 40.0-52.0 [facility] Comment on above: Performed By: #### L [id number] ####Fan Installer: BIANCA NICHOLS ([id number])[address] Hemoglobin (Bld) [Mass/Vol] 12.4 g/dL Low 13.0-18.0 [facility] Comment on above: Performed By: #### L [id number] ####Fan Installer: BIANCA NICHOLS ([id number])[address] MCH (RBC) [Entitic mass] 30.7 pg Normal 26.0-34.0 [facility] Comment on above: Performed By: #### L [id number] ####Fan Installer: BIANCA NICHOLS ([id number])[address] MCHC 33.1 % Normal 30.5-36.0 [facility] Comment on above: Performed By: #### L [id number] ####Fan Installer: BIANCA NICHOLS ([id number])[address] MCV (RBC) [Entitic vol] 92.8 fL Normal 77.0-99.0 [facility] Comment on above: Performed By: #### L [id number] ####Fan Installer: BIANCA NICHOLS ([id number])[facility] ([facility])[address] [place] [address] Platelet mean volume (Bld) [Entitic vol] 10.4 fL Normal 9.0-12.7 [facility] Comment on above: Performed By: #### L [id number] ####Fan Installer: BIANCA NICHOLS ([id number])[facility] ([facility])[address] [place] [address] Platelets (Bld) [#/Vol] 192 10*3/uL Normal 140-440 [facility] Comment on above: Performed By: #### L [id number] ####Fan Installer: BIANCA NICHOLS ([id number])[facility])[address] [place] [address] RBC (Bld) [#/Vol] 4.04 10*6/uL Low 4.40-5.90 [facility] Comment on above: Performed By: #### L [id number] ####Fan Installer: BIANCA NICHOLS ([id number])[facility] ([facility])[address] [place] [address] WBC (Bld) [#/Vol] 5.8 10*3/uL Normal 3.6-10.7 [facility] Comment on above: Performed By: #### L [id number] ####Fan Installer: BIANCA NICHOLS ([id number])[facility])[address] [place] [address] CBC panel Auto (Bld)on 05-21 Erythrocyte distribution width (RBC) [Ratio] 15.0 % 11.5 - 15.0 % [facility] Hematocrit (Bld) [Volume fraction] 37.5 % Low 40.0 - 52.0 % [facility] Hemoglobin (Bld) [Mass/Vol] 12.4 g/dL Low 13.0 - 18.0 g/dL [facility] Interpretation and review of laboratory results Abnormal [facility] MCH (RBC) [Entitic mass] 30.7 pg 26. 0 - 34.0 pg [facility] MCHC (RBC) [Mass/Vol] 33.1 % 30.5 - 36.0 % [facility] MCV (RBC) [Entitic vol] 92.8 fL 77.0 - 99.0 fL [facility] Platelet mean volume (Bld) [Entitic vol] 10.4 fL 9.0 - 12.7 fL [facility] Platelets (Bld) [#/Vol] 192 10*3/uL 140 - 440 10*3/uL [facility] RBC (Bld) [#/Vol] 4.04 10*6/uL Low 4.40 - 5.9 0 10*6/uL [facility] WBC (Bld) [#/Vol] 5.8 10*3/uL 3.6 - 10.7 10*3/uL [facility] COMPREHENSIVE METABOLIC PANE Antonio 05-21-2024 Albumin [Mass/Vol] 3.2 g/dL Low 3.5-5.0 [facility] Comment on above: Performed By: #### L [id number] ####Fan Installer: BIANCA NICHOLS ([id number])[facility])[address] [place] [address] ALP [Catalytic activity/Vol] 142 U/L High 38-126 [facility] Comment on above: Performed By: #### L [id number] ####Fan Installer: BIANCA NICHOLS ([id number])[facility])[address] [place] [address] ALT [Catalytic activity/Vol] 21 U/L Normal 0-49 [facility] Comment on above: Performed By: #### L [id number] ####Fan Installer: BIANCA NICHOLS ([id number])[facility])[address] [place] [address] Anion gap [Moles/Vol] 8 mmol/L Normal 3-13 [facility] Comment on above: Performed By: #### L [id number] ####Fan Installer: BIANCA NICHOLS ([id number])[facility])[address] [place] [address] AST [Catalytic activity/Vol] 24 U/L Normal 15-46 [facility] Comment on above: Performed By: #### L AB17 ####Fan Installer: BIANCA NICHOLS ([id number])[facility] ([facility])[address] [place] [address] Bilirubin [Mass/Vol] 0.5 mg/dL Normal 0.2-1.3 [facility] Comment on above: Performed By: #### L AB17 ####Fan Installer: BIANCA NICHOLS ([id number])[facility] ([facility])[address] [place] [address] Calcium [Mass/Vol] 8.5 mg/dL Normal 8.4-10.4 [facility] Comment on above: Performed By: #### L [id number] ####Fan Installer: BIANCA NICHOLS ([id number])[facility] ([facility])[address] [place] [address] Chloride [Moles/Vol] 109 mmol/L High 98-107 [facility] Comment on above: Performed By: #### L AB17 ####Fan Installer: BIANCA NICHOLS ([id number])[facility] ([facility])[address] [place] [address] CO2 [Moles/Vol] 18 mmol/L Low 22-30 [facility] Comment on above: Performed By: #### L [id number] ####Fan Installer: BIANCA NICHOLS ([id number])[facility] ([facility])[address] [place] [address] Creatinine [Mass/Vol] 0.46 mg/dL Low 0.66-1.25 [facility] Comment on above: Performed By: #### L AB17 ####Fan Installer: BIANCA NICHOLS ([id number])[facility] ([facility])[address] [place] [address] GLOMERULAR FILTRATION RATE ML/MIN/1.73 SQ M.PREDICTED >90.0 Normal >60.0 [facility] Comment on above: Result Comment: Calc ulation based on the Chronic Kidney Disease Epidemiology Collaboration (CKD-EPI) equation refit without adjustment for race Performed By: #### L [id number] ####Fan Installer: BIANCA [id number])[facility])[address] [place] [address] Glucose [Mass/Vol] 157 mg/dL High 70-100 [facility] Comment on above: Performed By: #### L AB17 ####Fan Installer: BIANCA NICHOLS ([id number])[facility] ([facility])[address] [place] [address] Potassium [Moles/Vol] 3.9 mmol/L Normal 3.5-5.1 [facility] Comment on above: Performed By: #### L [id number] ####Fan Installer: BIANCA NICHOLS ([id number])[facility] ([facility])[address] [place] [address] Protein [Mass/Vol] 6.2 g/dL Low 6.3-8.2 [facility] Comment on above: Performed By: #### L [id number] ####Fan Installer: BIANCA NICHOLS ([id number])[facility])[address] [place] [address] Sodium [Moles/Vol] 136 mmol/L Normal 135-145 [facility] Comment on above: Performed By: #### L [id number] ####Fan Installer: BIANCA NICHOLS ([id number])[facility] ([facility])[address] [place] [address] Urea nitrogen [Mass/Vol] 11 mg/dL Normal 9-20 [facility] Comment on above: Performed By: #### L [id number] ####Fan Installer: BIANCA NICHOLS ([id number])[facility] ([facility])[address] [place] [address] Comprehensive metabolic 1998 panelon 05-21-2024 Albumin [Mass/Vol] 3.2 g/dL Low 3.5 - 5.0 g/dL [facility] ALP [Catalytic activity/Vol] 142 U/L High 38 - 126 U/L [facility] ALT [Catalytic activity/Vol] 21 U/L 0 - 49 U/L [facility] Anion gap [Moles/Vol] 8 mmol/L 3 - 13 mmol/L [facility] AST [Catalytic activity/Vol] 24 U/L 15 - 46 U/L [facility] Bilirubin [Mass/Vol] 0.5 mg/dL 0.2 - 1 .3 mg/dL [facility] Calcium [Mass/Vol] 8.5 mg/dL 8.4 - 10. 4 mg/dL [facility] Chloride [Moles/Vol] 109 mmol/L High 98 - 10 7 mmol/L [facility] CO2 [Moles/Vol] 18 mmol/L Low 22 - 30 mmol/L [facility] Creatinine [Mass/Vol] 0.46 mg/dL Low 0.66 - 1.25 mg/dL [facility] GFR/1.73 sq M.predicted (S/P/Bld) [Vol rate/Area] - PINF [facility] Comment on above: Calculation based on the Chronic Kidney Disease Epidemiology Collaboration (CKD-EPI) equation refit without adjustment for race Glucose [Mass/Vol] 157 mg/dL High 70 - 100 mg/dL [facility] Interpretation and review of laboratory results Abnormal [facility] Potassium [Moles/Vol] 3.9 mmol/L 3.5 - 5.1 mmol/L [facility] Protein [Mass/Vol] 6.2 g/dL Low 6.3 - 8.2 g/dL [facility] Sodium [Moles/Vol] 136 mmol/L 135 - 145 mmol/L [facility] Urea nitrogen [Mass/Vol] 11 mg/dL 9 - 20 mg/dL [facility] IDNon 05-21-2024 IDN Problem: Knowledge Deficit Goal: [...] Goal: Assess Nutritional Intake Outcome: Progressing Normal [facility] Laboratory - Chemistry and C hemistry - challengeon 05-21-2024 Glucose [Mass/Vol] 261 mg/dL High 70 - 100 mg/dL [facility] Glucose [Mass/Vol] 231 mg/dL High 70 - 100 mg/dL [facility] Glucose [Mass/Vol] 162 mg/dL High 70 - 100 mg/dL [facility] Glucose [Mass/Vol] 154 mg/dL High 70 - 100 mg/dL [facility] No Panel Informationon 05-21 Interpretation and review of laboratory results Abnormal [facility] Performed by: [facility], [address] [place] [id number] CLIA ID: [id number] [facility] Interpretation and review of laboratory results Abnormal [facility] Performed by: [facility], [address] [place] [id number] CLIA ID: [id number] [facility] Interpretation and review of laboratory results Abnormal [facility] Performed by: [facility], [address] [place] [address] CLIA ID: [id number] [facility] Interpretation and review of laboratory results Abnormal [facility] Performed by: [facility], [address] [place] [id number] CLIA ID: [id number] [facility] Bacteria identified Cx Nom ( U)Ordered By: Codie Tang on 05-20-2024 Interpretation and review of laboratory results Abnormal [facility] Bacteria identified Cx Nom ( U)on 05-20-2024 Interpretation and review of laboratory results Abnormal [facility] CARECOORDon 05-20-2024 CARECOORD Chart reviewed. ID following for CoNS postive BC and proteus UTI. Repeat BC pending. +iv cefepime, final course not yet determined. [facility] Will [facility] skilled only if needed, otherwise he can return under his medicaid benefit per [facility] message. TCC to continue to follow. Normal [facility] CBC (HEMOGRAM)on 05-20-2024 Erythrocyte distribution width (RBC) [Ratio] 15.1 % High 11.5-15.0 [facility] Comment on above: Performed By: #### L [id number] ####Fan Installer: BIANCA NICHOLS ([id number])[facility])[address] [place] [address] Hematocrit (Bld) [Volume fraction] 37.0 % Low 40.0-52.0 [facility] Comment on above: Performed By: #### L [id number] ####Fan Installer: BIANCA NICHOLS ([id number])[facility])[address] [place] [address] Hemoglobin (Bld) [Mass/Vol] 12.2 g/dL Low 13.0-18.0 [facility] Comment on above: Performed By: #### L [id number] ####Fan Installer: BIANCA NICHOLS ([id number])[facility])[address] [place] [address] MCH (RBC) [Entitic mass] 29.9 pg Normal 26.0-34.0 [facility] Comment on above: Performed By: #### L [id number] ####Fan Installer: BIANCA NICHOLS ([id number])[facility])[address] [place] [address] MCHC 33.0 % Normal 30.5-36.0 [facility] Comment on above: Performed By: #### L [id number] ####Fan Installer: BIANCA NICHOLS ([id number])[facility])[address] [place] [address] MCV (RBC) [Entitic vol] 90.7 fL Normal 77.0-99.0 [facility] Comment on above: Performed By: #### L [id number] ####Fan Installer: BIANCA NICHOLS ([id number])[facility])[address] [place] [address] Platelet mean volume (Bld) [Entitic vol] 10.4 fL Normal 9.0-12.7 [facility] Comment on above: Performed By: #### L [id number] ####Fan Installer: BIANCA NICHOLS ([id number])[facility] ([facility])[address] [place] [address] Platelets (Bld) [#/Vol] 197 10*3/uL Normal 140-440 [facility] Comment on above: Performed By: #### L [id number] ####Fan Installer: BIANCA NICHOLS ([id number])[facility] ([facility])[address] [place] [address] RBC (Bld) [#/Vol] 4.08 10*6/uL Low 4.40-5.90 [facility] Comment on above: Performed By: #### L [id number] ####Fan Installer: BIANCA NICHOSL ([id number])[facility] ([facility])[address] [place] [address] WBC (Bld) [#/Vol] 5.5 10*3/uL Normal 3.6-10.7 [facility] Comment on above: Performed By: #### L [id number] ####Fan Installer: BIANCA NICHOLS ([id number])[facility])[address] [place] [address] CBC panel Auto (Bld)on 05-20 Erythrocyte distribution width (RBC) [Ratio] 15.1 % High 11.5 - 15.0 % [facility] Hematocrit (Bld) [Volume fraction] 37.0 % Low 40.0 - 52.0 % [facility] Hemoglobin (Bld) [Mass/Vol] 12.2 g/dL Low 13.0 - 18.0 g/dL [facility] Interpretation and review of laboratory results Abnormal [facility] MCH (RBC) [Entitic mass] 29.9 pg 26. 0 - 34.0 pg [facility] MCHC (RBC) [Mass/Vol] 33.0 % 30.5 - 36.0 % [facility] MCV (RBC) [Entitic vol] 90.7 fL 77.0 - 99.0 fL [facility] Platelet mean volume (Bld) [Entitic vol] 10.4 fL 9.0 - 12.7 fL [facility] Platelets (Bld) [#/Vol] 197 10*3/uL 140 - 440 10*3/uL [facility] RBC (Bld) [#/Vol] 4.08 10*6/uL Low 4.40 - 5.9 0 10*6/uL [facility] WBC (Bld) [#/Vol] 5.5 10*3/uL 3.6 - 10.7 10*3/uL [facility] COMPREHENSIVE METABOLIC PANE Antonio 05-20-2024 Albumin [Mass/Vol] 3.2 g/dL Low 3.5-5.0 [facility] Comment on above: Performed By: #### L [id number] ####Fan Installer: BIANCA NICHOLS ([id number])[facility] ([facility])[address] [place] [address] ALP [Catalytic activity/Vol] 153 U/L High 38-126 [facility] Comment on above: Performed By: #### L AB17 ####Fan Installer: BIANCA NICHOLS ([id number])[facility] ([facility])[address] [place] [address] ALT [Catalytic activity/Vol] 22 U/L Normal 0-49 [facility] Comment on above: Performed By: #### L [id number] ####Fan Installer: BIANCA NICHOLS ([id number])[facility] ([facility])[address] [place] [address] Anion gap [Moles/Vol] 4 mmol/L Normal 3-13 [facility] Comment on above: Performed By: #### L AB17 ####Fan Installer: BIANCA NICHOLS ([id number])[facility] ([facility])[address] [place] [address] AST [Catalytic activity/Vol] 23 U/L Normal 15-46 [facility] Comment on above: Performed By: #### L AB17 ####Fan Installer: BIANCA NICHOLS ([id number])[facility] ([facility])[address] [place] [address] Bilirubin [Mass/Vol] 0.6 mg/dL Normal 0.2-1.3 [facility] Comment on above: Performed By: #### L AB17 ####Fan Installer: BIANCA NICHOLS ([id number])[facility] ([facility])[address] [place] [address] Calcium [Mass/Vol] 8.5 mg/dL Normal 8.4-10.4 [facility] Comment on above: Performed By: #### L AB17 ####Fan Installer: BIANCA NICHOLS ([id number])[facility] ([facility])[address] [place] [address] Chloride [Moles/Vol] 109 mmol/L High 98-107 [facility] Comment on above: Performed By: #### L AB17 ####Fan Installer: BIANCA NICHOLS ([id number])[facility] ([facility])[address] [place] [address] CO2 [Moles/Vol] 21 mmol/L Low 22-30 [facility] Comment on above: Performed By: #### L [id number] ####Fan Installer: BIANCA NICHOLS ([id number])[facility] ([facility])[address] [place] [address] Creatinine [Mass/Vol] 0.50 mg/dL Low 0.66-1.25 [facility] Comment on above: Performed By: #### L [id number] ####Fan Installer: BIANCA NICHOLS ([id number])[facility])[address] [place] [address] GLOMERULAR FILTRATION RATE ML/MIN/1.73 SQ M.PREDICTED >90.0 Normal >60.0 [facility] Comment on above: Result Comment: Calc ulation based on the Chronic Kidney Disease Epidemiology Collaboration (CKD-EPI) equation refit without adjustment for race Performed By: #### L [id number] ####Fan Installer: BIANCA NICHOLS ([id number])[facility] ([facility])[address] [place] [address] Glucose [Mass/Vol] 207 mg/dL High 70-100 [facility] Comment on above: Performed By: #### L [id number] ####Fan Installer: BIANCA NICHOLS ([id number])[facility] [place] [address] Potassium [Moles/Vol] 4.0 mmol/L Normal 3.5-5.1 [facility] Comment on above: Performed By: #### L [id number] ####Fan Installer: BIANCA NICHOLS ([id number])[facility] ([facility])[address] [place] [address] Protein [Mass/Vol] 6.4 g/dL Normal 6.3-8.2 [facility] Comment on above: Performed By: #### L [id number] ####Fan Installer: BIANCA NICHOLS ([id number])[facility] ([facility])[address] [place] [address] Sodium [Moles/Vol] 134 mmol/L Low 135-145 [facility] Comment on above: Performed By: #### L [id number] ####Fan Installer: BIANCA NICHOLS ([id number])[facility] ([facility])[address] [place] [address] Urea nitrogen [Mass/Vol] 10 mg/dL Normal 9-20 [facility] Comment on above: Performed By: #### L [id number] ####Fan Installer: BIANCA NICHOLS ([id number])[facility] ([facility])[address] [place] [address] Comprehensive metabolic 1998 panelon 05-20-2024 Albumin [Mass/Vol] 3.2 g/dL Low 3.5 - 5.0 g/dL [facility] ALP [Catalytic activity/Vol] 153 U/L High 38 - 126 U/L [facility] ALT [Catalytic activity/Vol] 22 U/L 0 - 49 U/L [facility] Anion gap [Moles/Vol] 4 mmol/L 3 - 13 mmol/L [facility] AST [Catalytic activity/Vol] 23 U/L 15 - 46 U/L [facility] Bilirubin [Mass/Vol] 0.6 mg/dL 0.2 - 1 .3 mg/dL [facility] Calcium [Mass/Vol] 8.5 mg/dL 8.4 - 10. 4 mg/dL [facility] Chloride [Moles/Vol] 109 mmol/L High 98 - 10 7 mmol/L [facility] CO2 [Moles/Vol] 21 mmol/L Low 22 - 30 mmol/L [facility] Creatinine [Mass/Vol] 0.50 mg/dL Low 0.66 - 1.25 mg/dL [facility] GFR/1.73 sq M.predicted (S/P/Bld) [Vol rate/Area] - PINF [facility] Comment on above: Calculation based on the Chronic Kidney Disease Epidemiology Collaboration (CKD-EPI) equation refit without adjustment for race Glucose [Mass/Vol] 207 mg/dL High 70 - 100 mg/dL [facility] Interpretation and review of laboratory results Abnormal [facility] Potassium [Moles/Vol] 4.0 mmol/L 3.5 - 5.1 mmol/L [facility] Protein [Mass/Vol] 6.4 g/dL 6.3 - 8.2 g/dL [facility] Sodium [Moles/Vol] 134 mmol/L Low 135 - 145 mmol/L [facility] Urea nitrogen [Mass/Vol] 10 mg/dL 9 - 20 mg/dL [facility] IDNon 05-20-2024 IDN Problem: Knowledge Deficit Goal: Patient/family/caregi crystal demonstrates understanding of disease process, treatment plan, medications, and discharge instructions Outcome: Progressing Problem: Potential for Compromised Skin Integrity Goal: Skin Integrity is Maintained or Improved Outcome: Progressing Goal: Nutritional status is improving Outcome: Progressing Normal [facility] Laboratory - Chemistry and C hemistry - challengeon 05-20-2024 Glucose [Mass/Vol] 233 mg/dL High 70 - 100 mg/dL [facility] Glucose [Mass/Vol] 315 mg/dL High 70 - 100 mg/dL [facility] Glucose [Mass/Vol] 255 mg/dL High 70 - 100 mg/dL [facility] Glucose [Mass/Vol] 275 mg/dL High 70 - 100 mg/dL [facility] Laboratory - Microbiology an d Antimicrobial susceptibilityOrdered By: Codie Tang on 05-20-2024 Bacteria identified Cx Nom (U) >100,000 CFU/mL Proteus mirabilis Abnormal [facility] Comment on above: For identification a nd/or sensitivity, refer to culture collected on: 05/18/2024 at 0016 ([facility]-[id number]). Laboratory - Microbiology an d Antimicrobial susceptibilityon 05-20-2024 Bacteria identified Cx Nom (U) >100,000 CFU/mL Proteus mirabilis Abnormal [facility] Comment on above: This phenotype is singh ggestive of an ESBL-producing organism. Treatment with beta-lactam antibiotics other than carbapenems may not be effective. No Panel Informationon 05-20 Interpretation and review of laboratory results Abnormal [facility] [employer] Performed by: [facility] [email or web address] [facility], [address] [place] [address] CLIA ID: [id number] [facility] [employer] [facility] [employer] Interpretation and review of laboratory results Abnormal [facility] Performed by: [email or web address] [facility], [address] [place] [address], [facility] [address] CLIA ID: [id number] [facility] Interpretation and review of laboratory results Abnormal [facility] Performed by: [email or web address] [facility], [address] [place] [address], [facility] [address] CLIA ID: [id number] [facility] [employer] Interpretation and review of laboratory results Abnormal [facility] [employer] Performed by: [employer] [facility], [address] [place] [address], [facility] [address] CLIA ID: [id number] [facility] [employer] [facility] [employer] CARECOORDon 05-19-2024 [facility] Care Managment Initial Assessment Date: 05/19/2024 Patient Name: Anmol Reynolds : 1960 Patient Information Source of Information: Patient Cognition/Language: WFL - Within Functional Limits Permission given to speak with patient outside medical sales representative/caregi crystal as indicated: Yes Confirmation [...] No (n/a) Confirmed with: Living Arrangements Facility: Shelter/Residental Care Facility Name: [facility] Plan to Return: Yes Lives with: Alone, Other (Comment) (at [facility]) Support Systems: Children, Family members, Comments (Other) [...] ECF Discharge Planning Actions: Continue to follow, Correction Facility referral indicated [place] of choice: [place] of choice discussed (choice list not indicated; [...] ID consulted. Patient is a resident at [facility]. Patient confirmed plan for return. HAT RENOVATOR tasked to place return referral. Anticipate discharge in 2-3 days pending medical stability. Patient will need transport. TCC to continue to follow. Vipin Peter RN Normal [facility] CBC (HEMOGRAM)on 05-19-2024 Erythrocyte distribution width (RBC) [Ratio] 14.9 % Normal 11.5-15.0 [facility] Comment on above: Performed By: #### L [id number] ####Fan Installer: BIANCA NICHOLS ([id number])[facility] ([address] Hematocrit (Bld) [Volume fraction] 35.8 % Low 40.0-52.0 [facility] Comment on above: Performed By: #### L [id number] ####Fan Installer: BIANCA NICHOLS ([id number])[facility] ([facility])[address] [place] [address] Hemoglobin (Bld) [Mass/Vol] 12.0 g/dL Low 13.0-18.0 [facility] Comment on above: Performed By: #### L [id number] ####Fan Installer: BIANCA NICHOLS ([id number])[facility] ([facility])[address] [place] [address] MCH (RBC) [Entitic mass] 30.3 pg Normal 26.0-34.0 [facility] Comment on above: Performed By: #### L [id number] ####Fan Installer: BIANCA NICHOLS ([id number])[facility])[address] [place] [address] MCHC 33.5 % Normal 30.5-36.0 [facility] Comment on above: Performed By: #### L [id number] ####Fan Installer: BIANCA NICHOLS ([id number])[facility] ([facility])[address] [place] [address] MCV (RBC) [Entitic vol] 90.4 fL Normal 77.0-99.0 [facility] Comment on above: Performed By: #### L [id number] ####Fan Installer: BIANCA NICHOLS ([id number])[facility] ([facility])[address] [place] [address] Platelet mean volume (Bld) [Entitic vol] 10.6 fL Normal 9.0-12.7 [facility] Comment on above: Performed By: #### L [id number] ####Fan Installer: BIANCA NICHOLS ([id number])[facility])[address] [place] [address] Platelets (Bld) [#/Vol] 212 10*3/uL Normal 140-440 [facility] Comment on above: Performed By: #### L [id number] ####Fan Installer: BIANCA NICHOLS ([id number])[facility] ([facility])[address] [place] [address] RBC (Bld) [#/Vol] 3.96 10*6/uL Low 4.40-5.90 [facility] Comment on above: Performed By: #### L [id number] ####Fan Installer: BIANCA NICHOLS ([id number])[facility] ([facility])[address] [place] [address] WBC (Bld) [#/Vol] 5.4 10*3/uL Normal 3.6-10.7 [facility] Comment on above: Performed By: #### L [id number] ####Fan Installer: BIANCA NICHOLS ([id number])[facility] ([facility])[address] [place] [address] CBC panel Auto (Bld)on 05-19 Erythrocyte distribution width (RBC) [Ratio] 14.9 % 11.5 - 15.0 % [facility] Hematocrit (Bld) [Volume fraction] 35.8 % Low 40.0 - 52.0 % [facility] Hemoglobin (Bld) [Mass/Vol] 12.0 g/dL Low 13.0 - 18.0 g/dL [facility] Interpretation and review of laboratory results Abnormal [facility] MCH (RBC) [Entitic mass] 30.3 pg 26. 0 - 34.0 pg [facility] MCHC (RBC) [Mass/Vol] 33.5 % 30.5 - 36.0 % [facility] MCV (RBC) [Entitic vol] 90.4 fL 77.0 - 99.0 fL [facility] Platelet mean volume (Bld) [Entitic vol] 10.6 fL 9.0 - 12.7 fL [facility] Platelets (Bld) [#/Vol] 212 10*3/uL 140 - 440 10*3/uL [facility] RBC (Bld) [#/Vol] 3.96 10*6/uL Low 4.40 - 5.9 0 10*6/uL [facility] WBC (Bld) [#/Vol] 5.4 10*3/uL 3.6 - 10.7 10*3/uL [facility] COMPREHENSIVE METABOLIC PANE Antonio 05-19-2024 Albumin [Mass/Vol] 3.1 g/dL Low 3.5-5.0 [facility] Comment on above: Performed By: #### L [id number] ####Fan Installer: BIANCA NICHOLS ([id number])[facility] ([facility])[address] [place] [address] ALP [Catalytic activity/Vol] 155 U/L High 38-126 [facility] Comment on above: Performed By: #### L [id number] ####Fan Installer: BIANCA NICHOLS ([id number])[facility] ([facility])[address] [place] [address] ALT [Catalytic activity/Vol] 19 U/L Normal 0-49 [facility] Comment on above: Performed By: #### L AB17 ####Fan Installer: BIANCA NICHOLS ([id number])[facility] ([facility])[address] [place] [address] Anion gap [Moles/Vol] 3 mmol/L Normal 3-13 [facility] Comment on above: Performed By: #### L [id number] ####Fan Installer: BIANCA NICHOLS ([id number])[facility] ([facility])[address] [place] [address] AST [Catalytic activity/Vol] 29 U/L Normal 15-46 [facility] Comment on above: Performed By: #### L [id number] ####Fan Installer: BIANCA NICHOLS ([id number])[facility])[address] [place] [address] Bilirubin [Mass/Vol] 0.6 mg/dL Normal 0.2-1.3 [facility] Comment on above: Performed By: #### L [id number] ####Fan Installer: BIANCA NICHOLS ([id number])[facility])[address] [place] [address] Calcium [Mass/Vol] 8.4 mg/dL Normal 8.4-10.4 [facility] Comment on above: Performed By: #### L [id number] ####Fan Installer: BIANCA NICHOLS ([id number])[facility] ([facility])[address] [place] [address] Chloride [Moles/Vol] 110 mmol/L High 98-107 [facility] Comment on above: Performed By: #### L AB17 ####Fan Installer: BIANCA NICHOLS ([id number])[facility] ([facility])[address] [place] [address] CO2 [Moles/Vol] 21 mmol/L Low 22-30 [facility] Comment on above: Performed By: #### L AB17 ####Fan Installer: BIANCA NICHOLS ([id number])[facility] ([facility])[address] [place] [address] Creatinine [Mass/Vol] 0.44 mg/dL Low 0.66-1.25 [facility] Comment on above: Performed By: #### L AB17 ####Fan Installer: BIANCA NICHOLS ([id number])[facility])[address] [place] [address] GLOMERULAR FILTRATION RATE ML/MIN/1.73 SQ M.PREDICTED >90.0 Normal >60.0 [facility] Comment on above: Result Comment: Calc ulation based on the Chronic Kidney Disease Epidemiology Collaboration (CKD-EPI) equation refit without adjustment for race Performed By: #### L [id number] ####Fan Installer: BIANCA NICHOLS ([id number])[facility])[address] [place] [address] Glucose [Mass/Vol] 212 mg/dL High 70-100 [facility] Comment on above: Performed By: #### L AB17 ####Fan Installer: BIANCA NICHOLS ([id number])[facility] ([facility])[address] [place] [address] Potassium [Moles/Vol] 3.4 mmol/L Low 3.5-5.1 [facility] Comment on above: Performed By: #### L AB17 ####Fan Installer: BIANCA NICHOLS ([id number])[facility] ([facility])[address] [place] [address] Protein [Mass/Vol] 6.3 g/dL Normal 6.3-8.2 [facility] Comment on above: Performed By: #### L [id number] ####Fan Installer: BIANCA NICHOLS ([id number])[facility] ([facility])[address] [place] [address] Sodium [Moles/Vol] 134 mmol/L Low 135-145 [facility] Comment on above: Performed By: #### L [id number] ####Fan Installer: BIANCA NICHOLS ([id number])[facility] ([facility])[address] [place] [address] Urea nitrogen [Mass/Vol] 11 mg/dL Normal 9-20 [facility] Comment on above: Performed By: #### L [id number] ####Fan Installer: BIANCA NICHOLS ([id number])[facility] ([facility])[address] [place] [address] Comprehensive metabolic 1998 panelOrdered By: Harman Dempsey on 05-19-2024 Albumin [Mass/Vol] 3.1 g/dL Low 3.5 - 5.0 g/dL [facility] ALP [Catalytic activity/Vol] 155 U/L High 38 - 126 U/L [facility] ALT [Catalytic activity/Vol] 19 U/L 0 - 49 U/L [facility] Anion gap [Moles/Vol] 3 mmol/L 3 - 13 mmol/L [facility] AST [Catalytic activity/Vol] 29 U/L 15 - 46 U/L [facility] Bilirubin [Mass/Vol] 0.6 mg/dL 0.2 - 1 .3 mg/dL [facility] Calcium [Mass/Vol] 8.4 mg/dL 8.4 - 10. 4 mg/dL [facility] Chloride [Moles/Vol] 110 mmol/L High 98 - 10 7 mmol/L [facility] CO2 [Moles/Vol] 21 mmol/L Low 22 - 30 mmol/L [facility] Creatinine [Mass/Vol] 0.44 mg/dL Low 0.66 - 1.25 mg/dL [facility] GFR/1.73 sq M.predicted (S/P/Bld) [Vol rate/Area] - PINF [facility] Comment on above: Calculation based on the Chronic Kidney Disease Epidemiology Collaboration (CKD-EPI) equation refit without adjustment for race Glucose [Mass/Vol] 212 mg/dL High 70 - 100 mg/dL [facility] Interpretation and review of laboratory results Abnormal [facility] Potassium [Moles/Vol] 3.4 mmol/L Low 3.5 - 5.1 mmol/L [facility] [employer] Protein [Mass/Vol] 6.3 g/dL 6.3 - 8.2 g/dL [facility] Sodium [Moles/Vol] 134 mmol/L Low 135 - 145 mmol/L [facility] Urea nitrogen [Mass/Vol] 11 mg/dL 9 - 20 mg/dL [facility] Laboratory - Chemistry and C hemistry - challengeon 05-19-2024 Glucose [Mass/Vol] 292 mg/dL High 70 - 100 mg/dL [facility] Glucose [Mass/Vol] 294 mg/dL High 70 - 100 mg/dL [facility] Glucose [Mass/Vol] 333 mg/dL High 70 - 100 mg/dL [facility] Glucose [Mass/Vol] 274 mg/dL High 70 - 100 mg/dL [facility] [employer] No Panel Informationon 05-19 Interpretation and review of laboratory results Abnormal [facility] Performed by: [facility], [address] [place] [address] CLIA ID: [id number] [facility] Interpretation and review of laboratory results Abnormal [facility] Performed by: [facility], [address] [place] [address] CLIA ID: [id number] [facility] Interpretation and review of laboratory results Abnormal [facility] Performed by: [facility] [email or web address] [facility], [address] [place] [address] CLIA ID: [id number] [facility] Interpretation and review of laboratory results Abnormal [facility] Performed by: [facility], [address] [place] [address] CLIA ID: [id number] [facility] Progress Noteon 05-19-2024 Progress Note Nutrition Assessment [...] of note, pt was recently admitted to [facility] 04/14-04/20/2024 with proteus, providencia, and morganella bacteremia [...] On: Kcal/kg Weight Used for Energy Requirements: [place] Weight for Energy Calculation (kg): 89 kg Total Energy Requirements (kcals/day): 6489-9978 kcal/day (25-30 kcal/kg) Weight Used for Protein Requirements: [place] Weight in Kg Used for Protein Requirements: [...] Ordered Anthropometric Measures: Height: 190.5 cm (6' 3) Current Body Weight: 96.6 kg (213 lb) Weight Source: Bed Scale Admission Body Weight: 90.7 kg (200 lb) (stated) Usual Body Weight: (weights in EMR mostly appear stated, 180-200#, noted 04/19- 212#) [place] Body Weight (lbs) (Calculated): 196 lbs [place] Body Weight (Kg) (Calculated): 89 kg BMI [...] Chelita Dominguez RD Contact: Secure chat or *[phone] [facility] BASIC METABOLIC PANELon 08- 4-2024 Anion gap [Moles/Vol] 5 mmol/L Normal 3-13 [facility] Comment on above: Performed By: #### L AB15 ####Fan Installer: BIANCA NICHOLS ([id number])[facility] [place] [address] Calcium [Mass/Vol] 8.6 mg/dL Normal 8.4-10.4 [facility] Comment on above: Performed By: #### L AB15 ####Fan Installer: BIANCA NICHOLS ([id number])[facility])[address] [place] [address] Chloride [Moles/Vol] 108 mmol/L High 98-107 [facility] Comment on above: Performed By: #### L AB15 ####Fan Installer: BIANCA NICHOLS ([id number])[facility])[address] [place] [address] CO2 [Moles/Vol] 22 mmol/L Normal 22-30 [facility] Comment on above: Performed By: #### L AB15 ####Fan Installer: BIANCA NICHOLS ([id number])[facility] ([facility])[address] [place] [address] Creatinine [Mass/Vol] 0.64 mg/dL Low 0.66-1.25 [facility] Comment on above: Performed By: #### L AB15 ####Fan Installer: BIANCA NICHOLS ([id number])[facility])[address] [place] [address] GLOMERULAR FILTRATION RATE ML/MIN/1.73 SQ M.PREDICTED >90.0 Normal >60.0 [facility] Comment on above: Result Comment: Calc ulation based on the Chronic Kidney Disease Epidemiology Collaboration (CKD-EPI) equation refit without adjustment for race ORDER COMMENTS: Slightly Hemolyzed. Interpret K+ with caution. Performed By: #### L AB15 ####Fan Installer: BIANCA NICHOLS ([id number])[facility] ([facility] [place] [address] [place] Glucose [Mass/Vol] 143 mg/dL High 70-100 [facility] Comment on above: Performed By: #### L AB15 ####Fan Installer: BIANCA NICHOLS ([id number])[facility] ([facility])[address] [place] [address] Potassium [Moles/Vol] 4.5 mmol/L Normal 3.5-5.1 [facility] Comment on above: Performed By: #### L AB15 ####Fan Installer: BIANCA NICHOLS ([id number])[facility] [place] [address] Sodium [Moles/Vol] 136 mmol/L Normal 135-145 [facility] Comment on above: Performed By: #### L AB15 ####Fan Installer: BIANCA NICHOLS ([id number])[facility] ([facility])[address] [place] [address] Urea nitrogen [Mass/Vol] 13 mg/dL Normal 9-20 [facility] Comment on above: Performed By: #### L AB15 ####Fan Installer: BIANCA NICHOLS ([id number])[facility] ([facility])[address] [place] [address] Basic metabolic 1998 panelon 05-18-2024 Anion gap [Moles/Vol] 5 mmol/L 3 - 13 mmol/L [facility] Calcium [Mass/Vol] 8.6 mg/dL 8.4 - 10. 4 mg/dL [facility] Chloride [Moles/Vol] 108 mmol/L High 98 - 10 7 mmol/L [facility] CO2 [Moles/Vol] 22 mmol/L 22 - 30 mmol/L [facility] Creatinine [Mass/Vol] 0.64 mg/dL Low 0.66 - 1.25 mg/dL [facility] GFR/1.73 sq M.predicted (S/P/Bld) [Vol rate/Area] - PINF [facility] [place] Comment on above: Calculation based on the Chronic Kidney Disease Epidemiology Collaboration (CKD-EPI) equation refit without adjustment for race Glucose [Mass/Vol] 143 mg/dL High 70 - 100 mg/dL [facility] Interpretation and review of laboratory results Abnormal [facility] Potassium [Moles/Vol] 4.5 mmol/L 3.5 - 5.1 mmol/L [facility] Sodium [Moles/Vol] 136 mmol/L 135 - 145 mmol/L [facility] Urea nitrogen [Mass/Vol] 13 mg/dL 9 - 20 mg/dL [facility] Slightly Hemolyzed. Interpret K+ with caution. [facility] CBC W Auto Differential pane l (Bld)Ordered By: Gayle Stafford on 05-18-2024 Basophils (Bld) [#/Vol] 0.1 10*3/uL 0.0 - 0.2 10*3/uL [facility] Basophils/100 WBC (Bld) 0.8 % 0.0 - 2.0 % [facility] Eosinophils (Bld) [#/Vol] 0.4 10*3/uL 0.0 - 0.5 10*3/uL [facility] Eosinophils/100 WBC (Bld) 5.4 % 0.0 - 6.0 % [facility] Erythrocyte distribution width (RBC) [Ratio] 15.6 % High 11.5 - 15.0 % [facility] Hematocrit (Bld) [Volume fraction] 38.7 % Low 40.0 - 52.0 % [facility] Hemoglobin (Bld) [Mass/Vol] 12.5 g/dL Low 13.0 - 18.0 g/dL [facility] Immature granulocytes (Bld) [#/Vol] 0.0 10*3/uL NINF - 0.1 10*3/uL [facility] Immature granulocytes/100 WBC (Bld) 0.4 % 0.0 - 2.0 % [facility] Interpretation and review of laboratory results Abnormal [facility] Lymphocytes (Bld) [#/Vol] 2.2 10*3/uL 1.0 - 4.3 10*3/uL [facility] Lymphocytes/100 WBC (Bld) 28.0 % 15.0 - 45.0 % [facility] MCH (RBC) [Entitic mass] 30.3 pg 26. 0 - 34.0 pg [facility] MCHC (RBC) [Mass/Vol] 32.3 % 30.5 - 36.0 % [facility] MCV (RBC) [Entitic vol] 93.7 fL 77.0 - 99.0 fL [facility] Monocytes (Bld) [#/Vol] 0.7 10*3/uL 0.0 - 0.9 10*3/uL [facility] Monocytes/100 WBC (Bld) 9.6 % 5.0 - 13.0 % [facility] Neutrophils (Bld) [#/Vol] 4.3 10*3/uL 1.8 - 7.5 10*3/uL [facility] Neutrophils/100 WBC (Bld) 55.8 % 38.0 - 82.0 % [facility] Nucleated RBC/100 WBC (Bld) [Ratio] 0.0 % [facility] Platelet mean volume (Bld) [Entitic vol] 10.9 fL 9.0 - 12.7 fL [facility] Platelets (Bld) [#/Vol] 222 10*3/uL 140 - 440 10*3/uL [facility] RBC (Bld) [#/Vol] 4.13 10*6/uL Low 4.40 - 5.9 0 10*6/uL [facility] WBC (Bld) [#/Vol] 7.7 10*3/uL 3.6 - 10.7 10*3/uL [facility] CBC WITH AUTO DIFFERENTIALon 05-18-2024 Basophils (Bld) [#/Vol] 0.1 10*3/uL Normal 0.0-0.2 [facility] Comment on above: Performed By: #### L [id number] ####Fan Installer: BIANCA NICHOLS ([id number])[address] Basophils/100 WBC (Bld) 0.8 % Normal 0.0-2.0 [facility] Comment on above: Performed By: #### L [id number] ####Fan Installer: BIANCA [id number])[facility] ([facility])[address] [place] [address] Eosinophils (Bld) [#/Vol] 0.4 10*3/uL Normal 0.0-0.5 [facility] Comment on above: Performed By: #### L [id number] ####Fan Installer: BIANCA [id number])[facility] [address] Eosinophils/100 WBC (Bld) 5.4 % Normal 0.0-6.0 [facility] Comment on above: Performed By: #### L [id number] ####Fan Installer: BIANCA NICHOLS ([id number])[facility])[address] [place] [address] Erythrocyte distribution width (RBC) [Ratio] 15.6 % High 11.5-15.0 [facility] Comment on above: Performed By: #### L [id number] ####Fan Installer: BIANCA NICHOLS ([id number])[address] Hematocrit (Bld) [Volume fraction] 38.7 % Low 40.0-52.0 [facility] Comment on above: Performed By: #### L [id number] ####Fan Installer: BIANCA NICHOLS ([id number])[facility])[address] [place] [address] Hemoglobin (Bld) [Mass/Vol] 12.5 g/dL Low 13.0-18.0 [facility] Comment on above: Performed By: #### L [id number] ####Fan Installer: BIANCA NICHOLS ([id number])[facility])[address] [place] [address] IMMATURE GRANS % 0.4 % Normal 0.0-2.0 [facility] Comment on above: Performed By: #### L [id number] ####Fan Installer: BIANCA NICHOLS ([id number])[facility])[address] [place] [address] IMMATURE GRANS ABSOLUTE 0.0 10*3/uL Normal <0.1 [facility] Comment on above: Performed By: #### L [id number] ####Fan Installer: BIANCA NICHOLS ([id number])[facility])[address] [place] [address] Lymphocytes (Bld) [#/Vol] 2.2 10*3/uL Normal 1.0-4.3 [facility] Comment on above: Performed By: #### L [id number] ####Fan Installer: BIANCA NICHOLS ([id number])[facility])[address] [place] [address] Lymphocytes/100 WBC (Bld) 28.0 % Normal 15.0-45.0 [facility] Comment on above: Performed By: #### L [id number] ####Fan Installer: BIANCA NICHOLS ([id number])[facility] ([facility])[address] [place] [address] MCH (RBC) [Entitic mass] 30.3 pg Normal 26.0-34.0 [facility] Comment on above: Performed By: #### L [id number] ####Fan Installer: BIANCA NICHOLS ([id number])[facility])[address] [place] [address] MCHC 32.3 % Normal 30.5-36.0 [facility] Comment on above: Performed By: #### L [id number] ####Fan Installer: BIANCA NICHOLS ([id number])[facility])[address] [place] [address] MCV (RBC) [Entitic vol] 93.7 fL Normal 77.0-99.0 [facility] Comment on above: Performed By: #### L [id number] ####Fan Installer: BIANCA NICHOLS ([id number])[facility])[address] [place] [address] Monocytes (Bld) [#/Vol] 0.7 10*3/uL Normal 0.0-0.9 [facility] Comment on above: Performed By: #### L [id number] ####Fan Installer: BIANCA NICHOLS ([id number])[facility])[address] [place] [address] Monocytes/100 WBC (Bld) 9.6 % Normal 5.0-13.0 [facility] Comment on above: Performed By: #### L [id number] ####Fan Installer: BIANCA NICHOLS ([id number])[facility] ([facility])[address] [place] [address] NEUTROPHILS ABSOLUTE 4.3 10*3/uL Normal 1.8-7.5 [facility] Comment on above: Performed By: #### L [id number] ####Fan Installer: BIANCA NICHOLS ([id number])[facility] ([facility])[address] [place] [address] Neutrophils/100 WBC (Bld) 55.8 % Normal 38.0-82.0 [facility] Comment on above: Performed By: #### L [id number] ####Fan Installer: BIANCA NICHOLS ([id number])[facility])[address] [place] [address] NRBC 0.0 /100 WBCs Normal 0.0-2.0 [facility] Comment on above: Performed By: #### L [id number] ####Fan Installer: BIANCA NICHOLS ([id number])[facility] ([facility])[address] [place] [address] Platelet mean volume (Bld) [Entitic vol] 10.9 fL Normal 9.0-12.7 [facility] Comment on above: Performed By: #### L [id number] ####Fan Installer: BIANCA NICHOLS ([id number])[facility] ([facility])[address] [place] [address] Platelets (Bld) [#/Vol] 222 10*3/uL Normal 140-440 [facility] Comment on above: Performed By: #### L [id number] ####Fan Installer: BIANCA NICHOLS ([id number])[facility] ([facility])[address] [place] [address] RBC (Bld) [#/Vol] 4.13 10*6/uL Low 4.40-5.90 [facility] Comment on above: Performed By: #### L [id number] ####Fan Installer: BIANCA NICHOLS ([id number])[facility] [address] WBC (Bld) [#/Vol] 7.7 10*3/uL Normal 3.6-10.7 [facility] Comment on above: Performed By: #### L [id number] ####Fan Installer: BIANCA NICHOLS ([id number])[facility])[address] [place] [address] COMPLETE URINALYSISon 2023 BACTERIA (#/HPF) IN URINE Many Abnormal Negative [facility] Comment on above: Performed By: #### L [id number] ####Fan Installer: BIANCA NICHOLS ([id number])[facility])[address] [place] [address] BILIRUBIN, TOTAL PRESENCE IN URINE Negative Normal Negative [facility] Comment on above: Performed By: #### L [id number] ####Fan Installer: BIANCA NICHOLS ([id number])[address] Clarity (U) Turbid Abnormal Clear [facility] Comment on above: Performed By: #### L [id number] ####Fan Installer: BIANCA NICHOLS ([id number])[address] Color (U) Yellow Normal Lt. Yellow [facility] Comment on above: Performed By: #### L [id number] ####Fan Installer: BIANCA NICHOLS ([id number])[facility])[address] [place] [address] GLUCOSE (MG/DL) IN URINE Normal Normal Nor mal (<70) [facility] Comment on above: Performed By: #### L [id number] ####Fan Installer: BIANCA NICHOLS ([id number])[facility])[address] [place] [address] HEMOGLOBIN PRESENCE IN URINE 0.5 mg/dL Abnormal Negative [facility] Comment on above: Performed By: #### L [id number] ####Fan Installer: BIANCA [id number])[facility] [place] [address] HYALINE CASTS (#/LPF) IN URINE SEDIMENT BY MICROSCOPY Negative Normal Negative [facility] Comment on above: Performed By: #### L [id number] ####Fan Installer: BIANCA NICHOLS ([id number])[facility] ([facility])[address] [place] [address] Ketones Ql (U) Negative Normal Negative [facility] Comment on above: Performed By: #### L [id number] ####Fan Installer: BIANCA NICHOLS ([id number])[facility] ([facility])[address] [place] [address] LEUKOCYTE ESTERASE PRESENCE IN URINE BY TEST STRIP 500 Da/uL Abnormal Negative [facility] Comment on above: Performed By: #### L [id number] ####Fan Installer: BIANCA NICHOLS ([id number])[facility] ([facility])[address] [place] [address] MUCUS (#/LPF) IN URINE SEDIMENT Few Normal Negative [facility] Comment on above: Performed By: #### L [id number] ####Fan Installer: BIANCA NICHOLS ([id number])[facility] ([facility])[address] [place] [address] NITRITE PRESENCE IN URINE Positive Abnormal Negative [facility] Comment on above: Performed By: #### L [id number] ####Fan Installer: BIANCA NICHOLS ([id number])[facility] ([facility])[address] [place] [address] pH (U) 6.5 [pH] Normal 5.0-8.0 [facility] Comment on above: Performed By: #### L [id number] ####Fan Installer: BIANCA NICHOLS ([id number])[facility] ([facility])[address] [place] [address] Protein (U) [Mass/Vol] 50 mg/dL Abnormal Negative [facility] Comment on above: Performed By: #### L [id number] ####Fan Installer: BIANCA NICHOLS ([id number])[facility] ([facility])[address] [place] [address] RBC (#/HPF) IN URINE SEDIMENT 51-100 Abnormal 0-2 [facility] Comment on above: Performed By: #### L [id number] ####Fan Installer: BIANCA NICHOLS ([id number])[facility] ([facility])[address] [place] [address] Specific gravity (U) [Rel density] 1.015 Normal 1.005-1.030 [facility] Comment on above: Performed By: #### L [id number] ####Fan Installer: BIANCA NICHOLS ([id number])[facility] ([facility])[address] [place] [address] SQUAMOUS EPITHELIAL CELLS (#/HPF) IN URINE SEDIMENT Negative Normal 3-5 [facility] Comment on above: Performed By: #### L [id number] ####Fan Installer: BIANCA NICHOLS ([id number])[facility] ([facility])[address] [place] [address] UROBILINOGEN (MG/DL) IN URINE Normal Normal Normal (0-1) [facility] Comment on above: Performed By: #### L [id number] ####Fan Installer: BIANCA NICHOLS ([id number])[facility] ([facility])[address] [place] [address] WBC (LEUKOCYTE) (#/HPF) IN URINE SEDIMENT >100 Abnormal 0-5 [facility] Comment on above: Performed By: #### L [id number] ####Fan Installer: BIANCA NICHOLS ([id number])[facility] ([facility])[address] [place] [address] WBC (LEUKOCYTE) CLUMPS (#/HPF) IN URINE SEDIMENT Many Abnormal Negative [facility] Comment on above: Performed By: #### L [id number] ####Fan Installer: BIANCA NICHOLS ([id number])[facility] ([facility])[address] [place] [address] Consulton 05-18-2024 Consult [facility] - Infectious Diseases [employer]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 Pt presented to [facility] ED on 05/17/2024 for evaluation of positive blood cultures. Pt was recently admitted to [facility] 04/14-04/20/2024 with proteus, providencia, and morganella bacteremia [...] DECOMPRESSION performed by Opal Vigil MD at [facility] OR ORTHOPEDIC SURGERY Right removal [...] mg 4 mg Oral q4h PRN Heydi Austinla, MD 4 mg at 05/18/24 0616 insulin glargine (Lantus) injection 45 Units 45 Units SubCUTAneous q AM Heydi Concepcion MD Insulin Lispro (Humalog) injection 0-12 Units 0-12 Units SubCUTAneous TID WC Heydi Concepcion MD And Insulin Lispro (Humalog) injection 0-12 Units 0-12 Units SubCUTAneous Nightly Heydi Concepcion MD mirtazapine (Remeron) tablet 7.5 mg 7.5 mg Oral Nightly eHydi Concepcion MD naloxone (Narcan) injection 0.4 mg 0.4 mg IntraVENous q5 min PRN Heydi Concepcion MD ondansetron ODT (Zofran-ODT) disintegrating tablet 4 mg 4 mg Oral q8h PRN Heydi Concepcion MD Or ondansetron (Zofran) injec (more content not included)... Normal [facility] ED Nursing Noteon 05-18-2024 ED Nursing Note Pt refusing BG check stating I'm already eating. aware. Ella Zavala RN 05/18/24 1805 [facility] ED Nursing Note Pt refusing BG check at this time. aware. Ella Zavala RN 05/18/24 1237 [facility] ED Nursing Note Pt refusing continuous IV fluids. aware Ella Zavala RN 05/18/24 1051 [facility] ED Nursing Note Pt moved onto hospital bed, denies any needs or complaints at this time. Ella Zavala RN 05/18/24 1026 [facility] ED Nursing Note Pharmacy contacted regarding missing oxycodone. Ella Zavala RN 05/18/24 1052 [facility] ED Nursing Note Pt refused BG check/meds at this time stating I just want some sleep. Hospital bed ordered for pt. Meds deferred at this time. Ella Zavala RN 05/18/24 0822 [facility] ED Nursing Note Pt had a bowel movement, this RN & another RN cleaned pt. Carmen Crews RN 05/18/24 0454 Normal [facility] ED Nursing Note Pt transport has bee n requested Carmen Crews RN 05/18/24 0433 Normal [facility] ED Nursing Note Pt is asleep, w/ unlabored breathing Carmen Crews RN 05/18/24 0155 Carmen Crews RN 05/18/24 0156 Normal [facility] IDNon 05-18-2024 IDN The patient is Moderately Stable - Low risk of patient condition declining or worsening The patient's goals for the shift include Pain control. The clinical goals for the shift include Patient to remain free of injury for the entirety of the shift. Normal [facility] Laboratory - Chemistry and C hemistry - challengeon 05-18-2024 Glucose [Mass/Vol] 140 mg/dL High 70 - 100 mg/dL [facility] No Panel Informationon 05-18 Interpretation and review of laboratory results Abnormal [facility] Performed by: [facility], [address] [place] [address] CLIA ID: [id number] [facility] URINE CULTUREon 05-18-2024 Bacteria identified Cx Nom [...] Non-susceptible NO = No Interpretation ] Normal [facility] Comment on above: Performed By: #### L [id number] #### Fan Installer: BIANCA NICHOLS ([id number]) [facility] ([facility]) [address] Urinalysis complete panel (U )Ordered By: Franchesca Garnica on 05-18-2024 Bacteria LM.HPF (Urine sed) [#/Area] Many Abnormal Negative /HPF [facility] Bilirubin Ql (U) Negative Negative mg/dL [facility] Clarity (U) Turbid Abnormal Clear [facility] Color (U) Yellow Lt. Yellow [facility] Epithelial cells.squamous LM.HPF (Urine sed) [#/Area] Negative [facility] Glucose Ql (U) Normal Normal (<70) mg/dL [facility] Hemoglobin Ql (U) 0.5 mg/dL Abnormal Negative [facility] Hyaline casts Auto (Urine sed) [#/Area] Negative Negative /LPF [facility] Interpretation and review of laboratory results Abnormal [facility] Ketones (U) [Mass/Vol] Negative Negat mary grace mg/dL [facility] Leukocyte clumps LM.HPF (Urine sed) [#/Area] Many Abnormal Negative /HPF [facility] Leukocyte esterase Test strip Ql (U) 500 Abnormal Negative Da/uL [facility] Mucus LM.HPF (Urine sed) [#/Area] Few Negative /LPF [facility] Nitrite Ql (U) Positive Abnormal Negative [facility] th pH (U) 6.5 [pH] 5.0 - 8.0 pH [facility] Protein (U) [Mass/Vol] 50 mg/dL Abnormal Negative [facility] RBC LM.HPF (Urine sed) [#/Area] 51-100 Abnormal [facility] Specific gravity (U) [Rel density] 1.015 1.005 - 1.030 [facility] Urobilinogen (U) [Mass/Vol] Normal Normal (0-1) mg/dL [facility] WBC LM.HPF (Urine sed) [#/Area] /[HPF] Abnormal [facility] 36on 05-17-[address] Moyer his response in secure chat is to have him come to the hospital to get IV antibiotics. I called [facility] [phone] and spoke with his nurse Clement and notified her Dr. Moyer is suggesting Anmol goes to the hospital for IV antibiotics due to his blood culture results. Normal [facility] 36 BC prelim received Gram positive cocci in clusters. Msg sent to Dr. Moyer via secure chat too. Normal [facility] BASIC METABOLIC PANELon - Anion gap [Moles/Vol] 6 mmol/L Normal 3-13 [facility] Comment on above: Performed By: #### L [id number] ####Fan Installer: BIANCA NICHOLS ([id number])[facility] ([facility])[address] [place] [address] Calcium [Mass/Vol] 8.7 mg/dL Normal 8.4-10.4 [facility] Comment on above: Performed By: #### L AB15 ####Fan Installer: BIANCA NICHOLS ([id number])[facility] ([facility])[address] [place] [address] Chloride [Moles/Vol] 109 mmol/L High 98-107 [facility] Comment on above: Performed By: #### L AB15 ####Fan Installer: BIANCA NICHOLS ([id number])[facility] ([facility])[address] [place] [address] CO2 [Moles/Vol] 20 mmol/L Low 22-30 [facility] Comment on above: Performed By: #### L AB15 ####Fan Installer: BIANCA NICHOLS ([id number])[facility])[address] [place] [address] Creatinine [Mass/Vol] 0.68 mg/dL Normal 0.66-1.25 [facility] Comment on above: Performed By: #### L AB15 ####Fan Installer: BIANCA NICHOLS ([id number])[facility])[address] [place] [address] GLOMERULAR FILTRATION RATE ML/MIN/1.73 SQ M.PREDICTED >90.0 Normal >60.0 [facility] Comment on above: Result Comment: Calc ulation based on the Chronic Kidney Disease Epidemiology Collaboration (CKD-EPI) equation refit without adjustment for race Performed By: #### L AB15 ####Fan Installer: BIANCA [id number])[facility])[address] [place] [address] Glucose [Mass/Vol] 172 mg/dL High 70-100 [facility] Comment on above: Performed By: #### L AB15 ####Fan Installer: BIANCA NICHOLS ([id number])[facility] ([facility])[address] [place] [address] Potassium [Moles/Vol] 4.4 mmol/L Normal 3.5-5.1 [facility] Comment on above: Performed By: #### L AB15 ####Fan Installer: BIANCA NICHOLS ([id number])[facility] ([facility])[address] [place] [address] Sodium [Moles/Vol] 136 mmol/L Normal 135-145 [facility] Comment on above: Performed By: #### L AB15 ####Fan Installer: BIANCA NICHOLS ([id number])[facility] ([facility])[address] [place] [address] Urea nitrogen [Mass/Vol] 12 mg/dL Normal 9-20 [facility] Comment on above: Performed By: #### L AB15 ####Fan Installer: BIANCA NICHOLS ([id number])[facility] ([facility])[address] [place] [address] BLOOD CULTUREon 05-17-2024 Bacteria identified Cx Nom (Bld) BLOOD CULTURE Reference No growth at 5 days ORDER COMMENTS: Blood Collection Site: Left Antecubital [ S = SUSCEPTIBLE R = RESISTANT I = INTERMEDIATE S-DD = Susceptible-dose dependent NS = Non-susceptible NO = No Interpretation ] [facility] Comment on above: Performed By: #### L [id number] #### Fan Installer: BIANCA NICHOLS ([id number]) [facility] ([facility]) [address] [place] [address] [place] Bacteria identified Cx Nom (Bld) BLOOD CULTURE Reference No growth at 5 days ORDER COMMENTS: Blood Collection Site: Left Arm [ S = SUSCEPTIBLE R = RESISTANT I = INTERMEDIATE S-DD = Susceptible-dose dependent NS = Non-susceptible NO = No Interpretation ] [facility] Comment on above: Performed By: #### L [id number] #### Fan Installer: BIANCA NICHOLS ([id number]) [facility] ([facility]) [address] [place] [address] Basic metabolic 1998 panelon 05-17-2024 Anion gap [Moles/Vol] 6 mmol/L 3 - 13 mmol/L [facility] Calcium [Mass/Vol] 8.7 mg/dL 8.4 - 10. 4 mg/dL [facility] Chloride [Moles/Vol] 109 mmol/L High 98 - 10 7 mmol/L [facility] [facility] CO2 [Moles/Vol] 20 mmol/L Low 22 - 30 mmol/L [facility] Creatinine [Mass/Vol] 0.68 mg/dL 0.66 - 1.25 mg/dL [facility] GFR/1.73 sq M.predicted (S/P/Bld) [Vol rate/Area] - PINF [facility] Comment on above: Calculation based on the Chronic Kidney Disease Epidemiology Collaboration (CKD-EPI) equation refit without adjustment for race Glucose [Mass/Vol] 172 mg/dL High 70 - 100 mg/dL [facility] Interpretation and review of laboratory results Abnormal [facility] Potassium [Moles/Vol] 4.4 mmol/L 3.5 - 5.1 mmol/L [facility] Sodium [Moles/Vol] 136 mmol/L 135 - 145 mmol/L [facility] Urea nitrogen [Mass/Vol] 12 mg/dL 9 - 20 mg/dL [facility] CBC W Auto Differential pane l (Bld)Ordered By: Janice Carey on 05-17-2024 Basophils (Bld) [#/Vol] 0.0 10*3/uL 0.0 - 0.2 10*3/uL [facility] Basophils/100 WBC (Bld) 0.8 % 0.0 - 2.0 % [facility] Eosinophils (Bld) [#/Vol] 0.3 10*3/uL 0.0 - 0.5 10*3/uL [facility] Eosinophils/100 WBC (Bld) 7.4 % High 0.0 - 6.0 % [facility] Erythrocyte distribution width (RBC) [Ratio] 16.8 % High 11.5 - 15.0 % [facility] Hematocrit (Bld) [Volume fraction] 60.0 % High 40.0 - 52.0 % [facility] Hemoglobin (Bld) [Mass/Vol] 19.6 g/dL High 13.0 - 18.0 g/dL [facility] Immature granulocytes (Bld) [#/Vol] 0.0 10*3/uL NINF - 0.1 10*3/uL [facility] Immature granulocytes/100 WBC (Bld) 0.3 % 0.0 - 2.0 % [facility] Interpretation and review of laboratory results Abnormal [facility] Lymphocytes (Bld) [#/Vol] 1.0 10*3/uL 1.0 - 4.3 10*3/uL [facility] Lymphocytes/100 WBC (Bld) 26.9 % 15.0 - 45.0 % [facility] MCH (RBC) [Entitic mass] 30.1 pg 26. 0 - 34.0 pg [facility] MCHC (RBC) [Mass/Vol] 32.7 % 30.5 - 36.0 % [facility] MCV (RBC) [Entitic vol] 92.2 fL 77.0 - 99.0 fL [facility] Monocytes (Bld) [#/Vol] 0.2 10*3/uL 0.0 - 0.9 10*3/uL [facility] Monocytes/100 WBC (Bld) 6.8 % 5.0 - 13.0 % [facility] Neutrophils (Bld) [#/Vol] 2.0 10*3/uL 1.8 - 7.5 10*3/uL [facility] Neutrophils/100 WBC (Bld) 57.8 % 38.0 - 82.0 % [facility] Nucleated RBC/100 WBC (Bld) [Ratio] 0.0 % [facility] Platelet mean volume (Bld) [Entitic vol] 9.9 fL 9.0 - 12.7 fL [facility] Platelets (Bld) [#/Vol] 105 10*3/uL Low 140 - 440 10*3/uL [facility] RBC (Bld) [#/Vol] 6.51 10*6/uL High 4.40 - 5.9 0 10*6/uL [facility] WBC (Bld) [#/Vol] 3.5 10*3/uL Low 3.6 - 10.7 10*3/uL [facility] CBC WITH AUTO DIFFERENTIALon 05-17-2024 Basophils (Bld) [#/Vol] 0.0 10*3/uL Normal 0.0-0.2 [facility] Comment on above: Performed By: #### L [id number] ####Fan Installer: BIANCA NICHOLS ([id number])[facility])[address] [place] [address] Basophils/100 WBC (Bld) 0.8 % Normal 0.0-2.0 [facility] Comment on above: Performed By: #### L [id number] ####Fan Installer: BIANCA NICHOLS ([id number])[facility])[address] [place] [address] Eosinophils (Bld) [#/Vol] 0.3 10*3/uL Normal 0.0-0.5 [facility] Comment on above: Performed By: #### L [id number] ####Fan Installer: BIANCA NICHOLS ([id number])[facility] ([facility])[address] [place] [address] Eosinophils/100 WBC (Bld) 7.4 % High 0.0-6.0 [facility] Comment on above: Performed By: #### L [id number] ####Fan Installer: BIANCA NICHOLS ([id number])[facility])[address] [place] [address] Erythrocyte distribution width (RBC) [Ratio] 16.8 % High 11.5-15.0 [facility] Comment on above: Performed By: #### L [id number] ####Fan Installer: BIANCA NICHOLS ([id number])[facility] ([facility])[address] [place] [address] Hematocrit (Bld) [Volume fraction] 60.0 % High 40.0-52.0 [facility] Comment on above: Performed By: #### L [id number] ####Fan Installer: BIANCA NICHOLS ([id number])[facility])[address] [place] [address] Hemoglobin (Bld) [Mass/Vol] 19.6 g/dL High 13.0-18.0 [facility] Comment on above: Performed By: #### L [id number] ####Fan Installer: BIANCA NICHOLS ([id number])[facility])[address] [place] [address] IMMATURE GRANS % 0.3 % Normal 0.0-2.0 [facility] Comment on above: Performed By: #### L [id number] ####Fan Installer: BIANCA NICHOLS ([id number])[address] IMMATURE GRANS ABSOLUTE 0.0 10*3/uL Normal <0.1 [facility] Comment on above: Performed By: #### L [id number] ####Fan Installer: BIANCA NICHOLS ([id number])[facility])[address] [place] [address] Lymphocytes (Bld) [#/Vol] 1.0 10*3/uL Normal 1.0-4.3 [facility] Comment on above: Performed By: #### L [id number] ####Fan Installer: BIANCA NICHOLS ([id number])[address] Lymphocytes/100 WBC (Bld) 26.9 % Normal 15.0-45.0 [facility] Comment on above: Performed By: #### L [id number] ####Fan Installer: BIANCA NICHOLS ([id number])[facility])[address] [place] [address] MCH (RBC) [Entitic mass] 30.1 pg Normal 26.0-34.0 [facility] Comment on above: Performed By: #### L [id number] ####Fan Installer: BIANCA NICHOLS ([id number])[facility])[address] [place] [address] MCHC 32.7 % Normal 30.5-36.0 [facility] Comment on above: Performed By: #### L [id number] ####Fan Installer: BIANCA NICHOLS ([id number])[facility] ([facility])[address] [place] [address] MCV (RBC) [Entitic vol] 92.2 fL Normal 77.0-99.0 [facility] Comment on above: Performed By: #### L [id number] ####Fan Installer: BIANCA NICHOLS ([id number])[facility] ([facility])[address] [place] [address] Monocytes (Bld) [#/Vol] 0.2 10*3/uL Normal 0.0-0.9 [facility] Comment on above: Performed By: #### L [id number] ####Fan Installer: BIANCA NICHOLS ([id number])[facility] ([facility])[address] [place] [address] Monocytes/100 WBC (Bld) 6.8 % Normal 5.0-13.0 [facility] Comment on above: Performed By: #### L [id number] ####Fan Installer: BIANCA NICHOLS ([id number])[facility] ([facility])[address] [place] [address] NEUTROPHILS ABSOLUTE 2.0 10*3/uL Normal 1.8-7.5 [facility] Comment on above: Performed By: #### L [id number] ####Fan Installer: BIANCA NICHOLS ([id number])[facility] ([facility])[address] [place] [address] Neutrophils/100 WBC (Bld) 57.8 % Normal 38.0-82.0 [facility] Comment on above: Performed By: #### L [id number] ####Fan Installer: BIANCA NICHOLS ([id number])[facility])[address] [place] [address] NRBC 0.0 /100 WBCs Normal 0.0-2.0 [facility] Comment on above: Performed By: #### L [id number] ####Fan Installer: BIANCA NICHOLS ([id number])[facility])[address] [place] [address] Platelet mean volume (Bld) [Entitic vol] 9.9 fL Normal 9.0-12.7 [facility] Comment on above: Performed By: #### L [id number] ####Fan Installer: BIANCA NICHOLS ([id number])[facility] ([facility])[address] [place] [address] Platelets (Bld) [#/Vol] 105 10*3/uL Low 140-440 [facility] Comment on above: Performed By: #### L [id number] ####Fan Installer: BIANCA NICHOLS ([id number])[facility] ([facility])[address] [place] [address] RBC (Bld) [#/Vol] 6.51 10*6/uL High 4.40-5.90 [facility] Comment on above: Performed By: #### L [id number] ####Fan Installer: BIANCA NICHOLS ([id number])[facility] ([facility])[address] [place] [address] WBC (Bld) [#/Vol] 3.5 10*3/uL Low 3.6-10.7 [facility] Comment on above: Performed By: #### L [id number] ####Fan Installer: BIANCA NICHOLS ([id number])[facility] ([facility])[address] [place] [address] COMPLETE URINALYSISon 2023 BACTERIA (#/HPF) IN URINE Many Abnormal Negative [facility] Comment on above: Performed By: #### L [id number] #### Fan Installer: BIANCA NICHOLS ([id number]) [facility]) [address] [place] [address] BILIRUBIN, TOTAL PRESENCE IN URINE Negative Normal Negative [facility] Comment on above: Performed By: #### L [id number] #### Fan Installer: BIANCA NICHOLS ([id number]) [facility] ([facility]) [address] [place] [address] Clarity (U) Turbid Abnormal Clear [facility] Comment on above: Performed By: #### L [id number] #### Fan Installer: BIANCA NICHOLS ([id number]) [facility] ([facility]) [address] [place] [address] [place] Color (U) Yellow Normal Lt. Yellow [facility] Comment on above: Performed By: #### L [id number] #### Fan Installer: BIANCA NICHOLS ([id number]) [facility] ([facility]) [address] [place] [address] [place] GLUCOSE (MG/DL) IN URINE Normal Normal Nor mal (<70) [facility] Comment on above: Performed By: #### L [id number] #### Fan Installer: BIANCA NICHOLS ([id number]) [facility] ([facility]) [address] [place] [address] HEMOGLOBIN PRESENCE IN URINE 1.0 mg/dL Abnormal Negative [facility] Comment on above: Performed By: #### L [id number] #### Fan Installer: BIANCA NICHOLS ([id number]) [facility] ([facility]) [address] [place] [address] [place] Ketones Ql (U) Negative Normal Negative [facility] Comment on above: Performed By: #### L [id number] #### Fan Installer: BIANCA NICHOLS ([id number]) [facility] ([facility]) [address] [place] [address] [place] LEUKOCYTE ESTERASE PRESENCE IN URINE BY TEST STRIP 500 Da/uL Abnormal Negative [facility] Comment on above: Performed By: #### L [id number] #### Fan Installer: BIANCA NICHOLS ([id number]) [facility] ([facility]) [address] [place] [address] [place] MUCUS (#/LPF) IN URINE SEDIMENT Few Normal Negative [facility] Comment on above: Performed By: #### L [id number] #### Fan Installer: BIANCA NICHOLS ([id number]) [facility] ([facility]) [address] [place] [address] [place] NITRITE PRESENCE IN URINE Positive Abnormal Negative [facility] Comment on above: Performed By: #### L [id number] #### Fan Installer: BIANCA NICHOLS ([id number]) [facility] ([facility]) [address] [place] [address] pH (U) 8.0 [pH] Normal 5.0-8.0 [facility] Comment on above: Performed By: #### L [id number] #### Fan Installer: BIANCA NICHOLS ([id number]) [facility] ([facility]) [address] [place] [address] Protein (U) [Mass/Vol] 100 mg/dL Abnormal Negative [facility] Comment on above: Performed By: #### L [id number] #### Fan Installer: BIANCA NICHOLS ([id number]) [facility] ([facility]) [address] [place] [address] RBC (#/HPF) IN URINE SEDIMENT 11-25 Abnormal 0-2 [facility] Comment on above: Performed By: #### L [id number] #### Fan Installer: BIANCA NICHOLS ([id number]) [facility] ([facility]) [address] [place] [address] Specific gravity (U) [Rel density] 1.016 Normal 1.005-1.030 [facility] Comment on above: Performed By: #### L [id number] #### Fan Installer: BIANCA NICHOLS ([id number]) [facility] ([facility]) [address] [place] [address] SQUAMOUS EPITHELIAL CELLS (#/HPF) IN URINE SEDIMENT Negative Normal 3-5 [facility] Comment on above: Performed By: #### L [id number] #### Fan Installer: BIANCA NICHOLS ([id number]) [facility] ([facility]) [address] [place] [address] TRIPLE PHOSPHATE CRYSTALS (#/HPF) IN URINE Few Abnormal Negative [facility] Comment on above: Performed By: #### L [id number] #### Fan Installer: BIANCA NICHOLS ([id number]) [facility] ([facility]) [address] [place] [address] UROBILINOGEN (MG/DL) IN URINE Normal Normal Normal (0-1) [facility] Comment on above: Performed By: #### L [id number] #### Fan Installer: BIANCA NICHOLS ([id number]) [facility]) [address] [place] [address] WBC (LEUKOCYTE) (#/HPF) IN URINE SEDIMENT >100 Abnormal 0-5 [facility] Comment on above: Performed By: #### L [id number] #### Fan Installer: BIANCA NICHOLS ([id number]) [facility] ([facility]) [address] [place] [address] ED Provider Noteon ED Provider Note Emergency Department Encounter [facility] EMERGENCY DEPT [...] dictating provider for clarification.) Rodney Guerrero, DO [employer] Rodney Guerrero DO 05/18/24 0435 [facility] ED Provider Note EMERGENCY DEPARTMENT [...] for the entirety of this encounter. HPI Anmolzulma Reynolds is a 63 y.o. male who [...] DECOMPRESSION performed by Opal Vigil MD at [facility] OR ORTHOPEDIC SURGERY Right removal [...] CR (KL (more content not included)... Normal [facility] LACTIC ACID WITH REFLEXon Lactate [Moles/Vol] 1.4 mmol/L Normal 0.7-2.0 [facility] Comment on above: Performed By: #### L [id number] ####Fan Installer: BIANCA NICHOLS ([id number])[facility])[address] [place] [address] Laboratory - Chemistry and C hemistry - challengeon 05-17-2024 Lactate [Moles/Vol] 1.4 mmol/L 0.7 - 2. 0 mmol/L [facility] No Panel Informationon 05-17 Interpretation and review of laboratory results Normal [facility] URINE CULTUREon 05-17-2024 Bacteria identified Cx Nom (U) URINE CULTURE (A) Reference PROTEUS MIRABILIS >100,000 CFU/mL Proteus mirabilis (A) For identification and/or sensitivity, refer to culture collected on: 05/18/2024 at 0016 (24[facility]-[id number]). [ S = SUSCEPTIBLE R = RESISTANT I = INTERMEDIATE S-DD = Susceptible-dose dependent NS = Non-susceptible NO = No Interpretation ] Normal [facility] Comment on above: Performed By: #### L [id number] ####Fan Installer: BIANCA NICHOLS ([id number])[facility] ([address] Urinalysis complete panel (U )Ordered By: Madison Novak on 05-17-2024 Bacteria LM.HPF (Urine sed) [#/Area] Many Abnormal Negative /HPF [facility] Bilirubin Ql (U) Negative Negative mg/dL [facility] Clarity (U) Turbid Abnormal Clear [facility] Color (U) Yellow Lt. Yellow [facility] Epithelial cells.squamous LM.HPF (Urine sed) [#/Area] Negative [facility] Glucose Ql (U) Normal Normal (<70) mg/dL [facility] Hemoglobin Ql (U) 1.0 mg/dL Abnormal Negative [facility] Interpretation and review of laboratory results Abnormal [facility] Ketones (U) [Mass/Vol] Negative Negat mary grace mg/dL [facility] Leukocyte esterase Test strip Ql (U) 500 Abnormal Negative Da/uL [facility] Mucus LM.HPF (Urine sed) [#/Area] Few Negative /LPF [facility] Nitrite Ql (U) Positive Abnormal Negative [facility] pH (U) 8.0 [pH] 5.0 - 8.0 pH [facility] Protein (U) [Mass/Vol] 100 mg/dL Abnormal Negative [facility] RBC LM.HPF (Urine sed) [#/Area] 11-25 Abnormal [facility] Specific gravity (U) [Rel density] 1.016 1.005 - 1.030 [facility] Triple phosphate crystals LM.HPF (Urine sed) [#/Area] Few Abnormal Negative /HPF [facility] Urobilinogen (U) [Mass/Vol] Normal Normal (0-1) mg/dL [facility] WBC LM.HPF (Urine sed) [#/Area] /[HPF] Abnormal [facility] Progress Noteson 05-15-2024 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 HIPAA: Verbal permission granted from patient to discuss case, including protected health information, in front of family / friends in room at the time of the evaluation. Anmol Reynolds is a very pleasant 63 year old male here as new patient for a second opinion of MRI results. In 2019, pt had his first back surgery performed by [facility] which was an interbody fusion. 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 At that point, the hospital took the hardware out and did not replace it with the goal of treating the infection. 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 After the infection was treated, [facility] extended his fusion, decompressed the [...] Resource Strain: Low Risk (04/24/2023) Received from [facility] Overall Financial Resource Strain (CARDIA) Difficulty of Paying Living Expenses: Not hard at all Food Insecurity: No Food Insecurity (05/05/2024) Received from [facility] Hunger Vital Sign Worried About Running Out of Food in the Last Year: Never true Ran Out of Food in the Last Year: Never true Transportation Needs: No Transportation Needs (05/05/2024) Received from [facility] PRAPARE - Transportation Lack of Transportation (Medical): No Lack of Transportation (Non-Medical): No Intimate Partner Violence: Not At Risk (05/05/2024) Received from [facility] Humiliation, Afraid, Rape, and Kick questionnaire Fear [...] heal (more content not included)... Normal [facility] XR SACRUM-COCCYX 3 VIEWSon 0 05-12-2024 XR [...] stents are noted. MACRO: None Normal [facility] XR SCOLIOSIS PA + LAT 2 OR 3 VIEWSon 05-12-2024 XR SCOLIOSIS PA + LAT 2 OR 3 VIEWS EXAMINATION: XR SCOLIOSIS PA + LAT 2 OR 3 VIEWS 05/11/2024 04:02 PM CLINICAL HISTORY: upright scoli - [employer] DIAGNOSIS: Sacral insufficiency fracture, initial encounter ORDERING PROVIDER: [employer]IS [employer] NOTE: Best possible - Upright in chair, right lateral due to limitations of room layout and equipment COMPARISON: None FINDINGS: Dextroscoliosis of thoracic spine is noted. Luevano angle measures 10.0 degrees. Seneca is at T8 level. Fusion of lumbar [...] of L2-L3 segments. MACRO: None Normal [facility] XR Sacrum and Coccyx Viewson 05-12-2024 [...] considered. Ureteral stents are noted. MACRO: None [facility] Sacrum and Coccyx ViewsOr dered By: Juan William on 05-12-2024 [facility] Work Phone: XR Thoracic and lumbar spine 2 Views for scoliosison 05-12-2024 EXAMINATION: XR SCOLIOSIS PA + LAT 2 OR 3 VIEWS 05/11/2024 04:02 PM CLINICAL HISTORY: upright scoli - [employer] DIAGNOSIS: Sacral insufficiency fracture, initial encounter ORDERING PROVIDER: [employer] NOTE: Best possible - Upright in chair, right lateral due to limitations of room layout and equipment COMPARISON: None FINDINGS: Dextroscoliosis of thoracic spine is noted. Luevano angle measures 10.0 degrees. Seneca is at T8 level. Fusion of lumbar [...] 04:02 PM CLINICAL HISTORY: upright scoli - [employer] DIAGNOSIS: Sacral insufficiency fracture, initial encounter ORDERING PROVIDER: OTIS MEJIA TECHNJUNIE NOTE: Best possible - Upright in chair, right lateral due to limitations of room layout and equipment COMPARISON: None FINDINGS: Dextroscoliosis of thoracic spine is noted. Luevano angle measures 10.0 degrees. Seneca is at T8 level. Fusion of lumbar [...] and fusion of L2-L3 segments. MACRO: None [facility] XR Sacrum and Coccyx Viewson 05-11-2024 Radiology Study observation (narrative) [facility] XR Thoracic and lumbar spine 2 Views for scoliosison 05-11-2024 Radiology Study observation (narrative) [facility] Telephone Encounteron 2023 Project Drilling Engineer Authentication Interface Message Text Pt calling requesting provider to follow up regarding MRI. Pt was unable to provide telephone, address or SSN. No information was provided at this time. Normal [facility] Basic metabolic 1998 panelon 05-06-2024 Anion gap [Moles/Vol] 8 mmol/L 3 - 13 mmol/L [facility] Calcium [Mass/Vol] 8.4 mg/dL 8.4 - 10. 4 mg/dL [facility] Chloride [Moles/Vol] 105 mmol/L 98 - 10 7 mmol/L [facility] CO2 [Moles/Vol] 23 mmol/L 22 - 30 mmol/L [facility] Creatinine [Mass/Vol] 0.62 mg/dL Low 0.66 - 1.25 mg/dL [facility] GFR/1.73 sq M.predicted (S/P/Bld) [Vol rate/Area] - PINF [facility] Comment on above: Calculation based on the Chronic Kidney Disease Epidemiology Collaboration (CKD-EPI) equation refit without adjustment for race Glucose [Mass/Vol] 416 mg/dL High 70 - 100 mg/dL [facility] Interpretation and review of laboratory results Abnormal [facility] Potassium [Moles/Vol] 4.1 mmol/L 3.5 - 5.1 mmol/L [facility] Sodium [Moles/Vol] 136 mmol/L 135 - 145 mmol/L [facility] Urea nitrogen [Mass/Vol] 14 mg/dL 9 - 20 mg/dL [facility] CBC panel Auto (Bld)on 05-06 Erythrocyte distribution width (RBC) [Ratio] 14.5 % 11.5 - 15.0 % [facility] Hematocrit (Bld) [Volume fraction] 36.0 % Low 40.0 - 52.0 % [facility] Hemoglobin (Bld) [Mass/Vol] 12.1 g/dL Low 13.0 - 18.0 g/dL [facility] Interpretation and review of laboratory results Abnormal [facility] MCH (RBC) [Entitic mass] 30.3 pg 26. 0 - 34.0 pg [facility] MCHC (RBC) [Mass/Vol] 33.6 % 30.5 - 36.0 % [facility] MCV (RBC) [Entitic vol] 90.2 fL 77.0 - 99.0 fL [facility] Platelet mean volume (Bld) [Entitic vol] 10.8 fL 9.0 - 12.7 fL [facility] Platelets (Bld) [#/Vol] 273 10*3/uL 140 - 440 10*3/uL [facility] RBC (Bld) [#/Vol] 3.99 10*6/uL Low 4.40 - 5.9 0 10*6/uL [facility] WBC (Bld) [#/Vol] 6.8 10*3/uL 3.6 - 10.7 10*3/uL [facility] - Chemistry and C hemistry - challengeon 05-06-2024 Glucose [Mass/Vol] 260 mg/dL High 70 - 100 mg/dL [facility] Glucose [Mass/Vol] 428 mg/dL High 70 - 100 mg/dL [facility] Glucose [Mass/Vol] 359 mg/dL High 70 - 100 mg/dL [facility] No Panel Informationon 05-06 Interpretation and review of laboratory results Abnormal [facility] Performed by: [facility], [address] [place] [address] CLIA ID: [id number] [facility] Interpretation and review of laboratory results Abnormal [facility] Performed by: [facility], [address] [place], [place] [id number] CLIA ID: [id number] [facility] Interpretation and review of laboratory results Abnormal [facility] Performed by: [facility], [address] [place] [id number] CLIA ID: [id number] [facility] - Chemistry and C hemistry - challengeon 05-05-2024 Glucose [Mass/Vol] 176 mg/dL High 70 - 100 mg/dL [facility] Glucose [Mass/Vol] 166 mg/dL High 70 - 100 mg/dL [facility] Glucose [Mass/Vol] 236 mg/dL High 70 - 100 mg/dL [facility] No Panel Informationon 05-05 Interpretation and review of laboratory results Abnormal [facility] Performed by: [facility] [email or web address] [facility], [address] [place] [id number] CLIA ID: [id number] [facility] There is no interpretation needed for this exam. IMAGING Interpretation and review of laboratory results Abnormal [facility] [employer] Performed by: [facility], [address] [facility] [address] CLIA ID: [id number] [facility] [employer] Interpretation and review of laboratory results Abnormal [facility] Performed by: [facility], [address] [facility] [address] CLIA ID: [id number] [facility] [employer] Telephone Encounteron 2023 [employer] Authentication Interface Message Text Called pt and discussed his MRI L spine results. He has SCI rehab follow up scheduled. Recommended Spine Surgery opinion. No change in clinical condition from last visit. Vaishali Pierre, DO Normal [employer] Authentication Interface Message Text Called pt again. Staff at the SNF stated he was unable to come to the phone and asked for call back later in the day. 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 Will try again tomorrow. Vaishali Pierre, DO Normal [employer] CBC W Auto Differential pane l (Bld)on 04-20-2024 Erythrocyte distribution width (RBC) [Ratio] 14.8 % 11.5 - 15.0 % [facility] [employer] Hematocrit (Bld) [Volume fraction] 34.8 % Low 40.0 - 52.0 % [facility] [employer] Hemoglobin (Bld) [Mass/Vol] 11.3 g/dL Low 13.0 - 18.0 g/dL [facility] [employer] Interpretation and review of laboratory results Abnormal [facility] [employer] IPF 7 [facility] [employer] MCH (RBC) [Entitic mass] 30.5 pg 26. 0 - 34.0 pg [facility] [employer] MCHC (RBC) [Mass/Vol] 32.5 % 30.5 - 36.0 % [facility] [employer] MCV (RBC) [Entitic vol] 94.1 fL 77.0 - 99.0 fL [facility] [employer] Platelet mean volume (Bld) [Entitic vol] 11.6 fL 9.0 - 12.7 fL [facility] [employer] Platelets (Bld) [#/Vol] 121 10*3/uL Low 140 - 440 10*3/uL [facility] [employer] RBC (Bld) [#/Vol] 3.70 10*6/uL Low 4.40 - 5.9 0 10*6/uL [facility] WBC (Bld) [#/Vol] 6.4 10*3/uL 3.6 - 10.7 10*3/uL [facility] Comprehensive metabolic 1998 panelon 04-20-2024 Albumin [Mass/Vol] 2.5 g/dL Low 3.5 - 5.0 g/dL [facility] ALP [Catalytic activity/Vol] 94 U/L 38 - 126 U/L [facility] ALT [Catalytic activity/Vol] 15 U/L 0 - 49 U/L [facility] Anion gap [Moles/Vol] 6 mmol/L 3 - 13 mmol/L [facility] AST [Catalytic activity/Vol] 19 U/L 15 - 46 U/L [facility] Bilirubin [Mass/Vol] 0.4 mg/dL 0.2 - 1 .3 mg/dL [facility] Calcium [Mass/Vol] 7.6 mg/dL Low 8.4 - 10. 4 mg/dL [facility] Chloride [Moles/Vol] 108 mmol/L High 98 - 10 7 mmol/L [facility] CO2 [Moles/Vol] 23 mmol/L 22 - 30 mmol/L [facility] Creatinine [Mass/Vol] 0.44 mg/dL Low 0.66 - 1.25 mg/dL [facility] GFR/1.73 sq M.predicted MDRD (S/P/Bld) [Vol rate/Area] - PINF [facility] Glucose [Mass/Vol] 284 mg/dL High 70 - 100 mg/dL [facility] Interpretation and review of laboratory results Abnormal [facility] Potassium [Moles/Vol] 3.8 mmol/L 3.5 - 5.1 mmol/L [facility] Protein [Mass/Vol] 5.6 g/dL Low 6.3 - 8.2 g/dL [facility] Sodium [Moles/Vol] 138 mmol/L 135 - 145 mmol/L [facility] Urea nitrogen [Mass/Vol] 14 mg/dL 9 - 20 mg/dL [facility] Laboratory - Chemistry and C hemistry - challengeon 04-20-2024 Glucose [Mass/Vol] 282 mg/dL High 70 - 100 mg/dL [facility] Glucose [Mass/Vol] 398 mg/dL High 70 - 100 mg/dL [facility] Glucose [Mass/Vol] 323 mg/dL High 70 - 100 mg/dL [facility] Magnesium [Mass/Vol] 1.8 mg/dL 1.6 - 2 .3 mg/dL [facility] Laboratory - Hematology and Cell countson 04-20-2024 Eosinophils (Bld) [#/Vol] 0.3 10*3/uL 0.0 - 0.5 10*3/uL [facility] Eosinophils/100 WBC (Bld) 5 % 0 - 6 % [facility] Lymphocytes (Bld) [#/Vol] 2.0 10*3/uL 1.0 - 4.3 10*3/uL [facility] Lymphocytes/100 WBC (Bld) 32 % 15 - 45 % [facility] Monocytes (Bld) [#/Vol] 0.6 10*3/uL 0.0 - 0.9 10*3/uL [facility] Monocytes/100 WBC (Bld) 10 % 5 - 13 % [facility] Neutrophils (Bld) [#/Vol] 3.4 10*3/uL 1.8 - 7.5 10*3/uL [facility] RBC morphology finding Nom (Bld) Normal [facility] Segmented neutrophils/100 WBC (Bld) 53 % 38 - 82 % [facility] Laboratory - Microbiology an d Antimicrobial susceptibilityon 04-20-2024 SARS-CoV-2 (COVID-19) Ag IA.rapid Ql (Resp) Negative Negative [facility] No Panel Informationon 04-20 Interpretation and review of laboratory results Abnormal [facility] CV EPIPHANY [facility] RADIOLOGY SYSTEM [facility] RADIOLOGY SYSTEM [facility] Interpretation and review of laboratory results Abnormal [facility] Radiology Study observation (narrative) Summ He alth Interpretation and review of laboratory results Abnormal [facility] Eosinophils Manual 5 High 0 - 1 [facility] Interpretation and review of laboratory results Abnormal [facility] Lymphocytes Manual 32 [facility] Monocytes Manual 10 [facility] alth Neutrophils Manual 53 [facility] Interpretation and review of laboratory results Normal [facility] No Panel InformationOrdered By: Jax Wiggins on 04-20-2024 P [place] 10 degrees [facility] [employer] Work Phone: WA Interval 159 ms [facility] Work Phone: QRS [place] 28 degrees [employer] Work Phone: QRSD Interval 96 ms [facility] [employer] Work Phone: QT Interval 426 ms [facility] [employer] Work Phone: QTC Interval 477 ms [facility] [employer] Work Phone: T Wave [place] 28 degrees [employer] Work Phone: [employer] Work Phone: No Panel InformationOrdered By: Marie Howard on 04-20-2024 [employer] Work Phone: Phosphate [Moles/Vol]on 04-04 Phosphate [Mass/Vol] 2.8 mg/dL 2.5 - 4 .5 mg/dL [facility] [employer] SARS-CoV-2 (COVID-19) Ag IA. rapid Ql (Resp)on 04-20-2024 Interpretation and review of laboratory results Normal [facility] [employer] [facility] [employer] Vital signsOrdered By: Seth Wiggins on 04-20-2024 Heart rate 75 /min bpm [facility] [employer] Work Phone: CBC W Auto Differential pane l (Bld)on 04-19-2024 Erythrocyte distribution width (RBC) [Ratio] 14.8 % 11.5 - 15.0 % [facility] [employer] Hematocrit (Bld) [Volume fraction] 35.0 % Low 40.0 - 52.0 % [facility] [employer] Hemoglobin (Bld) [Mass/Vol] 11.6 g/dL Low 13.0 - 18.0 g/dL [facility] [employer] IPF 8 [facility] [employer] MCH (RBC) [Entitic mass] 30.6 pg 26. 0 - 34.0 pg [facility] [employer] MCHC (RBC) [Mass/Vol] 33.1 % 30.5 - 36.0 % [facility] [employer] MCV (RBC) [Entitic vol] 92.3 fL 77.0 - 99.0 fL [facility] [employer] Platelet mean volume (Bld) [Entitic vol] 11.6 fL 9.0 - 12.7 fL [facility] [employer] Platelets (Bld) [#/Vol] 88 10*3/uL Low 140 - 440 10*3/uL [facility] RBC (Bld) [#/Vol] 3.79 10*6/uL Low 4.40 - 5.9 0 10*6/uL [facility] WBC (Bld) [#/Vol] 9.2 10*3/uL 3.6 - 10.7 10*3/uL [facility] Comprehensive metabolic 1998 panelon 04-19-2024 Albumin [Mass/Vol] 2.7 g/dL Low 3.5 - 5.0 g/dL [facility] ALP [Catalytic activity/Vol] 119 U/L 38 - 126 U/L [facility] ALT [Catalytic activity/Vol] 16 U/L 0 - 49 U/L [facility] Anion gap [Moles/Vol] 5 mmol/L 3 - 13 mmol/L [facility] AST [Catalytic activity/Vol] 19 U/L 15 - 46 U/L [facility] Bilirubin [Mass/Vol] 0.6 mg/dL 0.2 - 1 .3 mg/dL [facility] Calcium [Mass/Vol] 7.9 mg/dL Low 8.4 - 10. 4 mg/dL [facility] Chloride [Moles/Vol] 107 mmol/L 98 - 10 7 mmol/L [facility] CO2 [Moles/Vol] 26 mmol/L 22 - 30 mmol/L [facility] Creatinine [Mass/Vol] 0.44 mg/dL Low 0.66 - 1.25 mg/dL [facility] GFR/1.73 sq M.predicted MDRD (S/P/Bld) [Vol rate/Area] - PINF [facility] Glucose [Mass/Vol] 153 mg/dL High 70 - 100 mg/dL [facility] Interpretation and review of laboratory results Abnormal [facility] Potassium [Moles/Vol] 3.5 mmol/L 3.5 - 5.1 mmol/L [facility] Protein [Mass/Vol] 6.0 g/dL Low 6.3 - 8.2 g/dL [facility] Sodium [Moles/Vol] 138 mmol/L 135 - 145 mmol/L [facility] Urea nitrogen [Mass/Vol] 14 mg/dL 9 - 20 mg/dL [facility] Laboratory - Chemistry and C hemistry - challengeon 04-19-2024 Glucose [Mass/Vol] 305 mg/dL High 70 - 100 mg/dL [facility] Glucose [Mass/Vol] 232 mg/dL High 70 - 100 mg/dL [facility] Glucose [Mass/Vol] 163 mg/dL High 70 - 100 mg/dL [facility] Glucose [Mass/Vol] 155 mg/dL High 70 - 100 mg/dL [facility] Magnesium [Mass/Vol] 1.8 mg/dL 1.6 - 2 .3 mg/dL [facility] Laboratory - Hematology and Cell countson 04-19-2024 Band form neutrophils (Bld) [#/Vol] 0.1 10*3/uL High NINF - 0.0 10*3/uL [facility] Band form neutrophils/100 WBC (Bld) 1 % High NINF - 0 % [facility] Basophils (Bld) [#/Vol] 0.1 10*3/uL 0.0 - 0.2 10*3/uL [facility] Basophils/100 WBC (Bld) 1 % 0 - 2 % [facility] Eosinophils (Bld) [#/Vol] 0.4 10*3/uL 0.0 - 0.5 10*3/uL [facility] Eosinophils/100 WBC (Bld) 4 % 0 - 6 % [facility] Lymphocytes (Bld) [#/Vol] 1.2 10*3/uL 1.0 - 4.3 10*3/uL [facility] Lymphocytes/100 WBC (Bld) 13 % Low 15 - 45 % [facility] Monocytes (Bld) [#/Vol] 0.7 10*3/uL 0.0 - 0.9 10*3/uL [facility] Monocytes/100 WBC (Bld) 8 % 5 - 13 % [facility] Neutrophils (Bld) [#/Vol] 6.7 10*3/uL 1.8 - 7.5 10*3/uL [facility] RBC morphology finding Nom (Bld) abnormal [facility] Segmented neutrophils/100 WBC (Bld) 72 % 38 - 82 % [facility] Stomatocytes LM Ql (Bld) Slight Abnormal (none) [facility] Variant lymphocytes (Bld) [#/Vol] 0.1 10*3/uL High NINF - 0.0 10*3/uL [facility] Variant lymphocytes/100 WBC (Bld) 1 % High NINF - 0 % [facility] No Panel Informationon 04-19 Interpretation and review of laboratory results Abnormal [facility] Interpretation and review of laboratory results Abnormal [facility] Interpretation and review of laboratory results Abnormal [facility] Interpretation and review of laboratory results Abnormal [facility] Atypical Lymphocytes Manual 1 [facility] Bands Manual 1 [facility]ophils Manual 1 [facility] Eosinophils Manual 4 High 0 - 1 [facility] Interpretation and review of laboratory results Abnormal [facility] Lymphocytes Manual 13 [facility] Monocytes Manual 8 [facility] alth Neutrophils Manual 71 [facility] Interpretation and review of laboratory results Normal [facility] Phosphate [Moles/Vol]on 04-04 Phosphate [Mass/Vol] 3.2 mg/dL 2.5 - 4 .5 mg/dL [facility] Bacteria identified Cx Nom ( Bld)on 04-18-2024 Interpretation and review of laboratory results Abnormal [facility] Bacteria identified Cx Nom ( Bld)Ordered By: Yani Martínez on 04-18-2024 Interpretation and review of laboratory results Abnormal [facility] CBC W Auto Differential pane l (Bld)Ordered By: Gricelda Eduardo on 04-18-2024 Erythrocyte distribution width (RBC) [Ratio] 15.0 % 11.5 - 15.0 % [facility] Hematocrit (Bld) [Volume fraction] 36.6 % Low 40.0 - 52.0 % [facility] Hemoglobin (Bld) [Mass/Vol] 12.1 g/dL Low 13.0 - 18.0 g/dL [facility] Interpretation and review of laboratory results Abnormal [facility] IPF 9 [facility] MCH (RBC) [Entitic mass] 30.6 pg 26. 0 - 34.0 pg [facility] MCHC (RBC) [Mass/Vol] 33.1 % 30.5 - 36.0 % [facility] MCV (RBC) [Entitic vol] 92.7 fL 77.0 - 99.0 fL [facility] Platelet mean volume (Bld) [Entitic vol] 11.7 fL 9.0 - 12.7 fL [facility] Platelets (Bld) [#/Vol] 79 10*3/uL Low 140 - 440 10*3/uL [facility] RBC (Bld) [#/Vol] 3.95 10*6/uL Low 4.40 - 5.9 0 10*6/uL [facility] WBC (Bld) [#/Vol] 8.4 10*3/uL 3.6 - 10.7 10*3/uL [facility] Comprehensive metabolic 1998 panelon 04-18-2024 Albumin [Mass/Vol] 2.9 g/dL Low 3.5 - 5.0 g/dL [facility] ALP [Catalytic activity/Vol] 123 U/L 38 - 126 U/L [facility] ALT [Catalytic activity/Vol] 18 U/L 0 - 49 U/L [facility] Anion gap [Moles/Vol] 7 mmol/L 3 - 13 mmol/L [facility] AST [Catalytic activity/Vol] 18 U/L 15 - 46 U/L [facility] Bilirubin [Mass/Vol] 0.8 mg/dL 0.2 - 1 .3 mg/dL [facility] Calcium [Mass/Vol] 7.8 mg/dL Low 8.4 - 10. 4 mg/dL [facility] Chloride [Moles/Vol] 105 mmol/L 98 - 10 7 mmol/L [facility] CO2 [Moles/Vol] 27 mmol/L 22 - 30 mmol/L [facility] Creatinine [Mass/Vol] 0.51 mg/dL Low 0.66 - 1.25 mg/dL [facility] GFR/1.73 sq M.predicted MDRD (S/P/Bld) [Vol rate/Area] - PINF [facility] Glucose [Mass/Vol] 74 mg/dL 70 - 100 mg/dL [facility] Potassium [Moles/Vol] 3.1 mmol/L Low 3.5 - 5.1 mmol/L [facility] Protein [Mass/Vol] 6.0 g/dL Low 6.3 - 8.2 g/dL [facility] Sodium [Moles/Vol] 140 mmol/L 135 - 145 mmol/L [facility] Urea nitrogen [Mass/Vol] 15 mg/dL 9 - 20 mg/dL [facility] Laboratory - Chemistry and C hemistry - challengeon 04-18-2024 Glucose [Mass/Vol] 264 mg/dL High 70 - 100 mg/dL [facility] Glucose [Mass/Vol] 135 mg/dL High 70 - 100 mg/dL [facility] Glucose [Mass/Vol] 144 mg/dL High 70 - 100 mg/dL [facility] Magnesium [Mass/Vol] 1.5 mg/dL Low 1.6 - 2 .3 mg/dL [facility] Glucose [Mass/Vol] 78 mg/dL 70 - 100 mg/dL [facility] Laboratory - Microbiology an d Antimicrobial susceptibilityon 04-18-2024 Bacteria identified Cx Nom (Bld) Morganella morganii Critically abnormal [facility] Bacteria identified Cx Nom (Bld) Providencia stuartii Critically abnormal [facility] Laboratory - Microbiology an d Antimicrobial susceptibilityOrdered By: Yani Martínez on 04-18-2024 Bacteria identified Cx Nom (Bld) Proteus mirabilis Critically abnormal [facility] Bacteria identified Cx Nom (Bld) Providencia stuartii Critically abnormal [facility] Bacteria identified Cx Nom (Bld) Morganella morganii Critically abnormal [facility] Manual differential performe d Ql (Bld)on 04-18-2024 Anisocytosis Ql (Bld) Slight Abnormal (none) [facility] Cells Counted Total (Bld) [#] 100 {cells} [facility] Differential Method Manual differential performed [facility] Eosinophils (Bld) [#/Vol] 0.1 10*3/uL 0.0 - 0.5 10*3/uL [facility] Eosinophils Manual 1 0 - 1 [facility] Eosinophils/100 WBC (Bld) 1 % 0 - 6 % [facility] Hypochromia Ql (Bld) Slight Abnormal (none) [facility] Interpretation and review of laboratory results Abnormal [facility] Leukocyte morphology finding Nom (Bld) Normal [facility] Lymphocytes (Bld) [#/Vol] 1.1 10*3/uL 1.0 - 4.3 10*3/uL [facility] Lymphocytes Manual 13 [facility] Lymphocytes/100 WBC (Bld) 13 % Low 15 - 45 % [facility] Monocytes (Bld) [#/Vol] 0.7 10*3/uL 0.0 - 0.9 10*3/uL [facility] Monocytes Manual 8 [facility]th Monocytes/100 WBC (Bld) 8 % 5 - 13 % [facility] Neutrophils (Bld) [#/Vol] 6.6 10*3/uL 1.8 - 7.0 10*3/uL [facility] Neutrophils Manual 78 [facility] Platelet morphology finding Nom (Bld) Normal [facility] Segmented neutrophils/100 WBC (Bld) 78 % 38 - 82 % [facility] WBC corrected for nucl RBC (Bld) [#/Vol] 8.4 10*3/uL 3.6 - 10.7 10*3/uL [facility] No Panel Informationon 04-18 Interpretation and review of laboratory results Abnormal [facility] Interpretation and review of laboratory results Abnormal [facility] Interpretation and review of laboratory results Abnormal [facility] Interpretation and review of laboratory results Abnormal [facility] Interpretation and review of laboratory results Normal [facility] Phosphate [Moles/Vol]on 04-04 Interpretation and review of laboratory results Normal [facility] Phosphate [Mass/Vol] 3.8 mg/dL 2.5 - 4 .5 mg/dL [facility] Bacteria identified Cx Nom ( U)Ordered By: Darya Clark on 04-17-2024 Interpretation and review of laboratory results Abnormal [facility] CBC W Auto Differential pane l (Bld)on 04-17-2024 Basophils (Bld) [#/Vol] 0.0 10*3/uL 0.0 - 0.2 10*3/uL [facility] Basophils/100 WBC (Bld) 0.1 % 0.0 - 2.0 % [facility] Eosinophils (Bld) [#/Vol] 0.1 10*3/uL 0.0 - 0.5 10*3/uL [facility] Eosinophils/100 WBC (Bld) 1.4 % 0.0 - 6.0 % [facility] Erythrocyte distribution width (RBC) [Ratio] 14.9 % 11.5 - 15.0 % [facility] Hematocrit (Bld) [Volume fraction] 35.4 % Low 40.0 - 52.0 % [facility] Hemoglobin (Bld) [Mass/Vol] 11.5 g/dL Low 13.0 - 18.0 g/dL [facility] Immature granulocytes (Bld) [#/Vol] 0.0 10*3/uL NINF - 0.1 10*3/uL [facility] Immature granulocytes/100 WBC (Bld) 0.3 % 0.0 - 2.0 % [facility] Interpretation and review of laboratory results Abnormal [facility] IPF 6 [facility] Lymphocytes (Bld) [#/Vol] 1.3 10*3/uL 1.0 - 4.3 10*3/uL [facility] Lymphocytes/100 WBC (Bld) 16.8 % 15.0 - 45.0 % [facility] MCH (RBC) [Entitic mass] 30.0 pg 26. 0 - 34.0 pg [facility] MCHC (RBC) [Mass/Vol] 32.5 % 30.5 - 36.0 % [facility] MCV (RBC) [Entitic vol] 92.4 fL 77.0 - 99.0 fL [facility] [facility] Monocytes (Bld) [#/Vol] 0.4 10*3/uL 0.0 - 0.9 10*3/uL [facility] Monocytes/100 WBC (Bld) 5.5 % 5.0 - 13.0 % [facility] Neutrophils (Bld) [#/Vol] 6.0 10*3/uL 1.8 - 7.5 10*3/uL [facility] Neutrophils/100 WBC (Bld) 75.9 % 38.0 - 82.0 % [facility] Nucleated RBC/100 WBC (Bld) [Ratio] 0.0 % [facility] Platelet mean volume (Bld) [Entitic vol] 11.6 fL 9.0 - 12.7 fL [facility] Platelets (Bld) [#/Vol] 77 10*3/uL Low 140 - 440 10*3/uL [facility] RBC (Bld) [#/Vol] 3.83 10*6/uL Low 4.40 - 5.9 0 10*6/uL [facility] WBC (Bld) [#/Vol] 7.9 10*3/uL 3.6 - 10.7 10*3/uL [facility] Comprehensive metabolic 1998 panelon 04-17-2024 Albumin [Mass/Vol] 2.6 g/dL Low 3.5 - 5.0 g/dL [facility] ALP [Catalytic activity/Vol] 128 U/L High 38 - 126 U/L [facility] ALT [Catalytic activity/Vol] 22 U/L 0 - 49 U/L [facility] Anion gap [Moles/Vol] 5 mmol/L 3 - 13 mmol/L [facility] AST [Catalytic activity/Vol] 22 U/L 15 - 46 U/L [facility] Bilirubin [Mass/Vol] 0.7 mg/dL 0.2 - 1 .3 mg/dL [facility] Calcium [Mass/Vol] 7.9 mg/dL Low 8.4 - 10. 4 mg/dL [facility] Chloride [Moles/Vol] 107 mmol/L 98 - 10 7 mmol/L [facility] CO2 [Moles/Vol] 23 mmol/L 22 - 30 mmol/L [facility] Creatinine [Mass/Vol] 0.58 mg/dL Low 0.66 - 1.25 mg/dL [facility] GFR/1.73 sq M.predicted MDRD (S/P/Bld) [Vol rate/Area] - PINF [facility] Glucose [Mass/Vol] 144 mg/dL High 70 - 100 mg/dL [facility] Interpretation and review of laboratory results Abnormal [facility] Potassium [Moles/Vol] 3.2 mmol/L Low 3.5 - 5.1 mmol/L [facility] Protein [Mass/Vol] 5.6 g/dL Low 6.3 - 8.2 g/dL [facility] Sodium [Moles/Vol] 135 mmol/L 135 - 145 mmol/L [facility] Urea nitrogen [Mass/Vol] 23 mg/dL High 9 - 20 mg/dL [facility] Laboratory - Chemistry and C hemistry - challengeon 04-17-2024 Glucose [Mass/Vol] 200 mg/dL High 70 - 100 mg/dL [facility] Glucose [Mass/Vol] 235 mg/dL High 70 - 100 mg/dL [facility] Glucose [Mass/Vol] 200 mg/dL High 70 - 100 mg/dL [facility] Glucose [Mass/Vol] 104 mg/dL High 70 - 100 mg/dL [facility] Magnesium [Mass/Vol] 1.6 mg/dL 1.6 - 2 .3 mg/dL [facility] Laboratory - Microbiology an d Antimicrobial susceptibilityOrdered By: Darya Clark on 04-17-2024 Bacteria identified Cx Nom (U) Normal urogenital gosia present [facility] Bacteria identified Cx Nom (U) 50,000-90,000 CFU/mL Providencia stuartii Abnormal [facility] No Panel Informationon 04-17 Interpretation and review of laboratory results Abnormal [facility] Interpretation and review of laboratory results Abnormal [facility] Interpretation and review of laboratory results Abnormal [facility] Interpretation and review of laboratory results Abnormal [facility] Interpretation and review of laboratory results Normal [facility] Phosphate [Moles/Vol]on 04-04 Phosphate [Mass/Vol] 2.8 mg/dL 2.5 - 4 .5 mg/dL [facility] CBC W Auto Differential pane l (Bld)Ordered By: [facility] on 04-16-2024 Erythrocyte distribution width (RBC) [Ratio] 15.2 % High 11.5 - 15.0 % [facility] Hematocrit (Bld) [Volume fraction] 37.2 % Low 40.0 - 52.0 % [facility] Hemoglobin (Bld) [Mass/Vol] 12.0 g/dL Low 13.0 - 18.0 g/dL [facility] IPF 8 [facility] MCH (RBC) [Entitic mass] 30.7 pg 26. 0 - 34.0 pg [facility] MCHC (RBC) [Mass/Vol] 32.3 % 30.5 - 36.0 % [facility] MCV (RBC) [Entitic vol] 95.1 fL 77.0 - 99.0 fL [facility] Platelet mean volume (Bld) [Entitic vol] 12.0 fL 9.0 - 12.7 fL [facility] Platelets (Bld) [#/Vol] 76 10*3/uL Low 140 - 440 10*3/uL [facility] RBC (Bld) [#/Vol] 3.91 10*6/uL Low 4.40 - 5.9 0 10*6/uL [facility] WBC (Bld) [#/Vol] 11.9 10*3/uL High 3.6 - 10.7 10*3/uL [facility] Comprehensive metabolic 1998 panelon 04-16-2024 Albumin [Mass/Vol] 2.8 g/dL Low 3.5 - 5.0 g/dL [facility] ALP [Catalytic activity/Vol] 130 U/L High 38 - 126 U/L [facility] ALT [Catalytic activity/Vol] 26 U/L 0 - 49 U/L [facility] Anion gap [Moles/Vol] 6 mmol/L 3 - 13 mmol/L [facility] AST [Catalytic activity/Vol] 37 U/L 15 - 46 U/L [facility] Bilirubin [Mass/Vol] 0.9 mg/dL 0.2 - 1 .3 mg/dL [facility] Calcium [Mass/Vol] 8.2 mg/dL Low 8.4 - 10. 4 mg/dL [facility] Chloride [Moles/Vol] 105 mmol/L 98 - 10 7 mmol/L [facility] CO2 [Moles/Vol] 25 mmol/L 22 - 30 mmol/L [facility] Creatinine [Mass/Vol] 0.70 mg/dL 0.66 - 1.25 mg/dL [facility] GFR/1.73 sq M.predicted MDRD (S/P/Bld) [Vol rate/Area] - PINF [facility] Glucose [Mass/Vol] 315 mg/dL High 70 - 100 mg/dL [facility] Interpretation and review of laboratory results Abnormal [facility] Potassium [Moles/Vol] 4.3 mmol/L 3.5 - 5.1 mmol/L [facility] Protein [Mass/Vol] 6.0 g/dL Low 6.3 - 8.2 g/dL [facility] Sodium [Moles/Vol] 137 mmol/L 135 - 145 mmol/L [facility] Urea nitrogen [Mass/Vol] 30 mg/dL High 9 - 20 mg/dL [facility] Laboratory - Chemistry and C hemistry - challengeon 04-16-2024 Glucose [Mass/Vol] 253 mg/dL High 70 - 100 mg/dL [facility] Glucose [Mass/Vol] 307 mg/dL High 70 - 100 mg/dL [facility] Glucose [Mass/Vol] 333 mg/dL High 70 - 100 mg/dL [facility] Glucose [Mass/Vol] 323 mg/dL High 70 - 100 mg/dL [facility] Magnesium [Mass/Vol] 2.0 mg/dL 1.6 - 2 .3 mg/dL [facility] Laboratory - Coagulationon 0 04-16-2024 aPTT Coag (PPP) [Time] 25.4 s 20.0 - 30.5 s [facility] INR Coag (PPP) [Relative time] 1.0 {INR} 0.9 - 1.1 [facility] PT Coag (Bld) [Time] 10.9 s 9.0 - 1 2.0 s [facility] Laboratory - Drug toxicology on 04-16-2024 Vancomycin [Mass/Vol] 12.3 ug/mL Low 15.0 - 20.0 ug/mL [facility] Laboratory - Hematology and Cell countson 04-16-2024 Anisocytosis Ql (Bld) Rare Abnormal (none) [facility] Band form neutrophils (Bld) [#/Vol] 0.2 10*3/uL High NINF - 0.0 10*3/uL [facility] Band form neutrophils/100 WBC (Bld) 2 % High NINF - 0 % [facility] [place] cells LM Ql (Bld) Slight Abnormal (none) [facility] Lymphocytes (Bld) [#/Vol] 0.5 10*3/uL Low 1.0 - 4.3 10*3/uL [facility] Lymphocytes/100 WBC (Bld) 4 % Low 15 - 45 % [facility] Monocytes (Bld) [#/Vol] 0.1 10*3/uL 0.0 - 0.9 10*3/uL [facility] Monocytes/100 WBC (Bld) 1 % Low 5 - 13 % [facility] Neutrophils (Bld) [#/Vol] 11.3 10*3/uL High 1.8 - 7.5 10*3/uL [facility] Ovalocytes LM Ql (Bld) Rare Abnormal (none) [facility] Poikilocytosis LM Ql (Bld) Slight Abnormal (none) [facility] RBC morphology finding Nom (Bld) abnormal [facility] Segmented neutrophils/100 WBC (Bld) 93 % High 38 - 82 % [facility] No Panel Informationon 04-16 Interpretation and review of laboratory results Abnormal [facility] Interpretation and review of laboratory results Abnormal [facility] Interpretation and review of laboratory results Normal [facility] Interpretation and review of laboratory results Abnormal [facility] Interpretation and review of laboratory results Abnormal [facility] Health Bands Manual 2 [facility] Health Lymphocytes Manual 4 [facility] Monocytes Manual 1 [facility] Neutrophils Manual 96 [facility] Interpretation and review of laboratory results Abnormal [facility] Interpretation and review of laboratory results Normal [facility] No Panel InformationOrdered By: [facility] on 04-16-2024 Interpretation and review of laboratory results Abnormal [facility] Phosphate [Moles/Vol]on 04-04 Phosphate [Mass/Vol] 2.7 mg/dL 2.5 - 4 .5 mg/dL [facility] CBC W Auto Differential pane l (Bld)Ordered By: Dawood Juan on 04-15-2024 Erythrocyte distribution width (RBC) [Ratio] 14.9 % 11.5 - 15.0 % [facility] Hematocrit (Bld) [Volume fraction] 36.2 % Low 40.0 - 52.0 % [facility] Hemoglobin (Bld) [Mass/Vol] 11.9 g/dL Low 13.0 - 18.0 g/dL [facility] Interpretation and review of laboratory results Abnormal [facility] IPF 5 [facility] MCH (RBC) [Entitic mass] 30.9 pg 26. 0 - 34.0 pg [facility] MCHC (RBC) [Mass/Vol] 32.9 % 30.5 - 36.0 % [facility] MCV (RBC) [Entitic vol] 94.0 fL 77.0 - 99.0 fL [facility] Platelet mean volume (Bld) [Entitic vol] 10.8 fL 9.0 - 12.7 fL [facility] Platelets (Bld) [#/Vol] 107 10*3/uL Low 140 - 440 10*3/uL [facility] RBC (Bld) [#/Vol] 3.85 10*6/uL Low 4.40 - 5.9 0 10*6/uL [facility] WBC (Bld) [#/Vol] 11.2 10*3/uL High 3.6 - 10.7 10*3/uL [facility] CBC W Auto Differential pane l (Bld)Ordered By: Benigno Guerrier on 04-15-2024 Erythrocyte distribution width (RBC) [Ratio] 14.8 % 11.5 - 15.0 % [facility] Hematocrit (Bld) [Volume fraction] 39.1 % Low 40.0 - 52.0 % [facility] Hemoglobin (Bld) [Mass/Vol] 12.4 g/dL Low 13.0 - 18.0 g/dL [facility] Interpretation and review of laboratory results Abnormal [facility] IPF 5 [facility] MCH (RBC) [Entitic mass] 30.8 pg 26. 0 - 34.0 pg [facility] MCHC (RBC) [Mass/Vol] 31.7 % 30.5 - 36.0 % [facility] MCV (RBC) [Entitic vol] 97.0 fL 77.0 - 99.0 fL [facility] Platelet mean volume (Bld) [Entitic vol] 10.9 fL 9.0 - 12.7 fL [facility] Platelets (Bld) [#/Vol] 117 10*3/uL Low 140 - 440 10*3/uL [facility] RBC (Bld) [#/Vol] 4.03 10*6/uL Low 4.40 - 5.9 0 10*6/uL [facility] WBC (Bld) [#/Vol] 5.4 10*3/uL 3.6 - 10.7 10*3/uL [facility] Comprehensive metabolic 1998 panelon 04-15-2024 Albumin [Mass/Vol] 2.6 g/dL Low 3.5 - 5.0 g/dL [facility] ALP [Catalytic activity/Vol] 168 U/L High 38 - 126 U/L [facility] ALT [Catalytic activity/Vol] 34 U/L 0 - 49 U/L [facility] Anion gap [Moles/Vol] 10 mmol/L 3 - 13 mmol/L [facility] AST [Catalytic activity/Vol] 36 U/L 15 - 46 U/L [facility] Bilirubin [Mass/Vol] 1.1 mg/dL 0.2 - 1 .3 mg/dL [facility] Calcium [Mass/Vol] 7.9 mg/dL Low 8.4 - 10. 4 mg/dL [facility] Chloride [Moles/Vol] 105 mmol/L 98 - 10 7 mmol/L [facility] CO2 [Moles/Vol] 19 mmol/L Low 22 - 30 mmol/L [facility] Creatinine [Mass/Vol] 1.01 mg/dL 0.66 - 1.25 mg/dL [facility] GFR/1.73 sq M.predicted MDRD (S/P/Bld) [Vol rate/Area] 84.1 mL/min/{1.73_m2} - PINF [facility] th Glucose [Mass/Vol] 286 mg/dL High 70 - 100 mg/dL [facility] Interpretation and review of laboratory results Abnormal [facility] Potassium [Moles/Vol] 3.6 mmol/L 3.5 - 5.1 mmol/L [facility] Protein [Mass/Vol] 5.5 g/dL Low 6.3 - 8.2 g/dL [facility] Sodium [Moles/Vol] 135 mmol/L 135 - 145 mmol/L [facility] Urea nitrogen [Mass/Vol] 25 mg/dL High 9 - 20 mg/dL [facility] Laboratory - Chemistry and C hemistry - challengeon 04-15-2024 Glucose [Mass/Vol] 390 mg/dL High 70 - 100 mg/dL [facility] Glucose [Mass/Vol] 342 mg/dL High 70 - 100 mg/dL [facility] Average glucose Estimated from glycated hemoglobin (Bld) [Mass/Vol] 134 mg/dL [facility] Glucose [Mass/Vol] 287 mg/dL High 70 - 100 mg/dL [facility] Lactate [Moles/Vol] 2.0 mmol/L 0.7 - 2. 0 mmol/L [facility] Procalcitonin [Mass/Vol] 27.06 ng/mL High 0.0 0 - 0.09 ng/mL [facility] Glucose [Mass/Vol] 285 mg/dL High 70 - 100 mg/dL [facility] Lactate [Moles/Vol] 3.6 mmol/L High 0.7 - 2. 0 mmol/L [facility] Magnesium [Mass/Vol] 1.7 mg/dL 1.6 - 2 .3 mg/dL [facility] Laboratory - Drug toxicology on 04-15-2024 Vancomycin [Mass/Vol] 10.8 ug/mL Low 15.0 - 20.0 ug/mL [facility] Laboratory - Hematology and Cell countson 04-15-2024 HbA1c (Bld) [Mass fraction] 6.3 % High NINF - 5.7 % [facility] Band form neutrophils (Bld) [#/Vol] 2.6 10*3/uL High NINF - 0.0 10*3/uL [facility] Band form neutrophils/100 WBC (Bld) 23 % High NINF - 0 % [facility] Tate cells LM Ql (Bld) Slight Abnormal [...] % Low 5 - 13 % [facility] Health Neutrophils (Bld) [#/Vol] 11.0 10*3/uL [...] 1 % 0 - 2 % [facility] Health [place] cells LM Ql (Bld) Slight Abnormal (none) [facility] Lymphocytes (Bld) [#/Vol] 0.1 10*3/uL Low 1.0 - 4.3 10*3/uL [facility] Lymphocytes/100 WBC (Bld) 1 % Low 15 - 45 % [facility] Metamyelocytes (Bld) [#/Vol] 0.1 10*3/uL High NINF - 0.0 10*3/uL [facility] Metamyelocytes/100 WBC (Bld) 1 % High NINF - 0 % [facility] Monocytes (Bld) [#/Vol] 0.0 10*3/uL 0.0 - 0.9 10*3/uL [facility] Monocytes/100 WBC (Bld) 0 % Low 5 - 13 % [facility] Neutrophils (Bld) [#/Vol] 5.2 10*3/uL 1.8 - 7.5 10*3/uL [facility] Poikilocytosis LM Ql (Bld) Rare Abnormal (none) [facility] RBC morphology finding Nom (Bld) abnormal [facility] Segmented neutrophils/100 WBC (Bld) 74 % 38 - 82 % [facility] MRSA DNA JOSSY+probe Ql (Nose) on 04-15-2024 Interpretation and review of laboratory results Abnormal [facility] mecA gene Not detected Not Detected [facility] Staphylococcus aureus Detected Abnormal Not Detected [facility] No Panel Informationon 04-15 Interpretation and review of laboratory results Abnormal [facility] Interpretation and review of laboratory results Abnormal [facility] Interpretation and review of laboratory results Abnormal [facility] Interpretation and review of laboratory results Abnormal [facility] Interpretation and review of laboratory results Normal [facility] Interpretation and review of laboratory results Abnormal [facility] Health Bands Manual 23 [facility] Interpretation and review of laboratory results Abnormal [facility] Lymphocytes Manual 1 [facility] Metamyelocytes Manual 1 [facility] Monocytes Manual 1 [facility] He alth Neutrophils Manual 76 [facility] Interpretation and review of laboratory results Abnormal [facility] Interpretation and review of laboratory results Normal [facility] CV EPIPHANY [facility] Interpretation and review of laboratory results Abnormal [facility] Health Bands Manual 23 [facility] Basophils Manual 1 [facility] Interpretation and review of laboratory results Abnormal [facility] Lymphocytes Manual 1 [facility] Metamyelocytes Manual 1 [facility] Monocytes Manual 0 [facility] Neutrophils Manual 74 [facility] No Panel InformationOrdered By: Radha Clarke on 04-15-2024 Interpretation and review of laboratory results Abnormal [facility] Proteus species Detected Abnormal Not Detected [facility] No Panel InformationOrdered By: Gerber Cardona on 04-15-2024 P [place] 4 degrees [facility] Work Phone: WA Interval 154 ms [facility] Work Phone: QRS [place] 36 degrees [facility] Work Phone: QRSD Interval 90 ms [employer] Work Phone: QT Interval 336 ms [facility] Work Phone: QTC Interval 473 ms [facility] Work Phone: T Wave [place] 37 degrees [employer] Work Phone: [employer] Work Phone: Phosphate [Moles/Vol]on 04-04 Phosphate [Mass/Vol] 3.3 mg/dL 2.5 - 4 .5 mg/dL [facility] [employer] Procalcitonin [Mass/Vol]on 04-15-2024 Interpretation and review of laboratory results Abnormal [facility] [employer] [facility] [employer] Vital signsOrdered By: Gerber Cardona on 04-15-2024 Heart rate 119 /min bpm [facility] Work Phone: ABO and Rh group Confirm Nom (Bld)on 04-14-2024 ABO group Nom (Bld) O [facility] D Ag Ql (RBC) Negative [facility] [employer] ABO and Rh group panel (Bld) on 04-14-2024 ABO group Nom (Bld) O [facility] D Ag Ql (RBC) Negative [facility] [employer] CBC W Auto Differential pane l (Bld)Ordered By: Bev Santizo on 04-14-2024 Erythrocyte distribution width (RBC) [Ratio] 14.8 % 11.5 - 15.0 % [facility] [employer] Hematocrit (Bld) [Volume fraction] 47.3 % 40.0 - 52.0 % [facility] [employer] Hemoglobin (Bld) [Mass/Vol] 15.2 g/dL 13.0 - 18.0 g/dL [facility] [employer] Interpretation and review of laboratory results Abnormal [facility] [employer] MCH (RBC) [Entitic mass] 30.7 pg 26. 0 - 34.0 pg [facility] MCHC (RBC) [Mass/Vol] 32.1 % 30.5 - 36.0 % [facility] MCV (RBC) [Entitic vol] 95.6 fL 77.0 - 99.0 fL [facility] Platelet mean volume (Bld) [Entitic vol] 10.8 fL 9.0 - 12.7 fL [facility] Platelets (Bld) [#/Vol] 183 10*3/uL 140 - 440 10*3/uL [facility] RBC (Bld) [#/Vol] 4.95 10*6/uL 4.40 - 5.9 0 10*6/uL [facility] WBC (Bld) [#/Vol] 1.5 10*3/uL Critically low 3.6 - 10 .7 10*3/uL [facility] CT Abdomen WO contraston [facility] RADIOLOGY [facility] RADIOLOGY [facility] Radiology Study observation (narrative) [facility] CT Abdomen WO contrastOrdere d By: Joe Monroy on 04-14-2024 [facility] Work Phone: Comprehensive metabolic 1998 panelon 04-14-2024 Albumin [Mass/Vol] 4.0 g/dL 3.5 - 5.0 g/dL [facility] ALP [Catalytic activity/Vol] 167 U/L High 38 - 126 U/L [facility] ALT [Catalytic activity/Vol] 22 U/L 0 - 49 U/L [facility] Anion gap [Moles/Vol] 16 mmol/L High 3 - 13 mmol/L [facility] AST [Catalytic activity/Vol] 25 U/L 15 - 46 U/L [facility] Bilirubin [Mass/Vol] 1.4 mg/dL High 0.2 - 1 .3 mg/dL [facility] Calcium [Mass/Vol] 9.0 mg/dL 8.4 - 10. 4 mg/dL [facility] Chloride [Moles/Vol] 102 mmol/L 98 - 10 7 mmol/L [facility] CO2 [Moles/Vol] 19 mmol/L Low 22 - 30 mmol/L [facility] Creatinine [Mass/Vol] 1.24 mg/dL 0.66 - 1.25 mg/dL [facility] GFR/1.73 sq M.predicted MDRD (S/P/Bld) [Vol rate/Area] 65.7 mL/min/{1.73_m2} - PINF [facility] th Glucose [Mass/Vol] 259 mg/dL High 70 - 100 mg/dL [facility] Potassium [Moles/Vol] 3.9 mmol/L 3.5 - 5.1 mmol/L [facility] Protein [Mass/Vol] 7.8 g/dL 6.3 - 8.2 g/dL [facility] Sodium [Moles/Vol] 137 mmol/L 135 - 145 mmol/L [facility] Urea nitrogen [Mass/Vol] 21 mg/dL High 9 - 20 mg/dL [facility] Laboratory - Chemistry and C hemistry - challengeOrdered By: Meliton Burrows on 04-14-2024 Lactate [Moles/Vol] 4.9 mmol/L Critically high 0.7 - 2.0 mmol/L [facility] Laboratory - Chemistry and C hemistry - challengeon 04-14-2024 Glucose [Mass/Vol] 223 mg/dL High 70 - 100 mg/dL [facility] Health Glucose [Mass/Vol] 210 mg/dL High 70 - 100 mg/dL [facility] Glucose [Mass/Vol] 226 mg/dL High 70 - 100 mg/dL [facility] Lipase [Catalytic activity/Vol] U/L Low 23 - 300 U/L [facility] Lactate [Moles/Vol] 3.9 mmol/L High 0.7 - 2. 0 mmol/L [facility] Troponin I.cardiac [Mass/Vol] ng/mL NINF - 0.034 ng/mL [facility] Beta hydroxybutyrate [Mass/Vol] 1.08 mg/dL 0.20 - 2.81 mg/dL [facility] Base excess Calc (BldV) [Moles/Vol] -8.0000 mmol/L Low -3.0 - 3.0 mmol/L [facility] [facility] CO2 (BldV) [Partial pressure] 47.4 mm[Hg] [facility] CO2 [Moles/Vol] 20.9 mmol/L Low 23.0 - 30.0 mmol/L [facility] HCO3 (Bld) [Moles/Vol] 19.5 mmol/L Low 21.0 - 30.0 mmol/L [facility] Oxygen (BldV) [Partial pressure] 40.8 mm[Hg] mm Hg [facility] pH (BldV) 7.232 [pH] Low 7.320 - 7.420 [facility] Lipase [Catalytic activity/Vol] 12 U/L Low 23 - 300 U/L [facility] Laboratory - Chemistry and C hemistry - challengeOrdered By: Elliot Martines on 04-14-2024 Lactate [Moles/Vol] 5.1 mmol/L Critically high 0.7 - 2.0 mmol/L [facility] Laboratory - Coagulationon 0 04-14-2024 PT Coag (Bld) [Time] 27.1 s High 9.0 - 1 2.0 s [facility] Laboratory - Hematology and Cell countson 04-14-2024 Hemoglobin (Bld) [Mass/Vol] 13.7 g/dL Screen only [facility] Band form neutrophils (Bld) [#/Vol] 0.3 10*3/uL High NINF - 0.0 10*3/uL [facility] Band form neutrophils/100 WBC (Bld) 17 % High NINF - 0 % [facility] Basophils (Bld) [#/Vol] 0.0 10*3/uL 0.0 - 0.2 10*3/uL [facility] Basophils/100 WBC (Bld) 1 % 0 - 2 % [facility] Lymphocytes (Bld) [#/Vol] 0.6 10*3/uL Low 1.0 - 4.3 10*3/uL [facility] Lymphocytes/100 WBC (Bld) 38 % 15 - 45 % [facility] Monocytes (Bld) [#/Vol] 0.0 10*3/uL 0.0 - 0.9 10*3/uL [facility] Monocytes/100 WBC (Bld) 1 % Low 5 - 13 % [facility] Neutrophils (Bld) [#/Vol] 0.9 10*3/uL Low 1.8 - 7.5 10*3/uL [facility] RBC morphology finding Nom (Bld) Normal [facility] Segmented neutrophils/100 WBC (Bld) 42 % 38 - 82 % [facility] Lipase [Catalytic activity/V ol]on 04-14-2024 Interpretation and review of laboratory results Abnormal [facility] No Panel InformationOrdered By: Meliton Burrows on 04-14-2024 Interpretation and review of laboratory results Abnormal [facility] No Panel Informationon 04-14 Interpretation and review of laboratory results Abnormal [facility] Interpretation and review of laboratory results Abnormal [facility] Interpretation and review of laboratory results Abnormal [facility] Interpretation and review of laboratory results Abnormal [facility] Interpretation and review of laboratory results Abnormal [facility] Interpretation and review of laboratory results Normal [facility] Interpretation and review of laboratory results Abnormal [facility] Source Of Oxygen Room Air [facility] Health Bands Manual 17 [facility] Health Basophils Manual 1 [facility] Interpretation and review of laboratory results Abnormal [facility] Lymphocytes Manual 38 [facility] Monocytes Manual 1 [facility] alth Neutrophils Manual 42 [facility] Interpretation and review of laboratory results Abnormal [facility] No Panel InformationOrdered By: Elliot Martines on 04-14-2024 Interpretation and review of laboratory results Abnormal [facility] PT Coag (Bld) [Time]on 04-14 INR Coag (PPP) [Relative time] 2.7 {INR} High 0.9 - 1.1 [facility] RF Kidney and Ureter and Uri nary bladder Views W contrast retrogradeon 04-14-2024 IMAGING Troponin I.cardiac [Mass/Vol ]on 04-14-2024 Interpretation and review of laboratory results Normal [facility] Vital signson 04-14-2024 Oxygen saturation in Venous blood 70.7 % [facility] XR Chest Single viewon 04-14 [facility] SYSTEM [facility] Radiology Study observation (narrative) [facility] alth XR Chest Single viewOrdered By: Geneva Lunsford on 04-14-2024 [facility] Work Phone: aPTT Coag (Bld) [Time]on aPTT Coag (PPP) [Time] 68.0 s High 20.0 - 30.5 s [facility] Telephone Encounteron 2023 Project Drilling Engineer Authentication Interface Message Text Called pt on his room number but unable to reach him or leave a message. [place] and was able to leave a message with nursing regarding his MRI findings and that I would like to speak with him and recommendations to schedule visit with SCI rehab and spine surgery. Vaishali Placeway, DO Normal [facility] Telephone Encounteron 2023 Project Drilling Engineer Authentication Interface Message Text Telephoned [facility] pt at dinner and front desk receptionist states she cannot pull pt away from dinner. Normal [facility] Project Drilling Engineer Authentication Interface Message Text Called pt regarding his MRI, which showed: IMPRESSION: Acute-subacute sacral insufficiency fracture at S2. Postoperative and degenerative changes of the lumbar spine with linear granulation tissue at L2-3 and tethering of the cauda equina suggesting sequelae of chronic arachnoiditis. No evidence of osteomyelitis discitis or epidural abscess. He was currently out of the group home where he lives, but I was [...] to the above findings.He does not have Expert TAt set up to message. Vaishali Pierre, DO Normal [facility] MR L-SPINE W/+W/Oon 04-05-20 MR L-SPINE [...] or epidural abscess. MACRO: None Normal [facility] MR Lumbar spine WO and W [...] History of lumbar fusion ORDERING PROVIDER: VAISHALI [facility] NOTE: COMPARISON: Lumbar radiographs from [...] History of lumbar fusion ORDERING PROVIDER: VAISHALI [facility] NOTE: COMPARISON: Lumbar radiographs from [...] osteomyelitis discitis or epidural abscess. MACRO: None [facility] Radiology Study observation (narrative) [facility] MR Lumbar spine WO and W con trast IVOrdered By: Hector Li on 04-05-2024 [facility] Phone: Patient Instructionson 02-09 Project Drilling Engineer Authentication Interface Message Text - xrays of the low back - can schedule the MRI of the lumbar spine - I recommend seeing one of my colleagues in the spinal cord injury clinic Normal [facility] Progress Noteson 02-10-2024 Project Drilling Engineer Authentication Interface Message Text Physical Medicine and [...] currently in a nursing facility, [facility]. Bladder management is via Santana catheter. [...] in the spinal cord injury clinic for detention SCI related tano (more content not included)... Normal [facility] Project Drilling Engineer Authentication Interface Message Text Vitals not obtained per provider's instructions. Normal [facility] XR L-SPINE AP+LATERAL 2-3 EWSon 02-10-2024 XR L-SPINE AP+LATERAL 2-3 VIEWS EXAMINATION: XR L-SPINE AP+LATERAL 2-3 VIEWS 02/10/2024 02:27 PM CLINICAL HISTORY: lower thoracic, upper lumbar pareplegia, h/o lumbar surgery. Obtaining updated MRI. Need pre xray ASSOCIATED DIAGNOSIS: Paraplegia (HCC) History of lumbar fusion ORDERING PROVIDER: VAISHALI [facility] [employer] NOTE: COMPARISON: None FINDINGS: There is [...] segments is considered. MACRO: None Normal [facility] XR Lumbar spine AP and Later brooklynn 02-10-2024 EXAMINATION: XR L-SPINE AP+LATERAL 2-3 VIEWS 02/10/2024 02:27 PM CLINICAL HISTORY: lower thoracic, upper lumbar pareplegia, h/o lumbar surgery. Obtaining updated MRI. Need pre xray ASSOCIATED DIAGNOSIS: Paraplegia (HCC) History of lumbar fusion ORDERING PROVIDER: [employer] NOTE: COMPARISON: None FINDINGS: There is [...] (HCC) History of lumbar fusion ORDERING PROVIDER: [employer] NOTE: COMPARISON: None FINDINGS: There is [...] on L3 segments is considered. MACRO: None [facility] Radiology Study observation (narrative) [facility] XR Lumbar spine AP and Later alOrdered By: Juan William on 02-10-2024 [facility] Work Phone: Basophil percentageOrdered B y: Tab Dupont on 01-15-2024 Chloride [Moles/Vol] 109 mmol/L 98-107 [facility] Glucose [Mass/Vol] 122 mg/dL 74-106 [facility] Comment on above: Fasting Glucose resu lt from 100 to 125 mg/dL suggests IMPAIRED HOMEOSTASIS per A.D.A. criteria. Hemoglobin (Bld) [Mass/Vol] 13.0 g/dL 13.0-16.5 [facility] Potassium [Moles/Vol] 3.8 mmol/L 3.5-5.1 [facility] Sodium [Moles/Vol] 139 mmol/L 136-145 [facility] WBC (Bld) [#/Vol] 6.6 10*3/uL 4.4-11.0 [facility] Determination of erythrocyte mean corpuscular volume (MCV)Ordered By: Tab Dupont on 01-15-2024 MCV (RBC) [Entitic vol] 94.3 fL 80-94 [facility] Erythrocyte distribution wid th ratioOrdered By: Tab Dupont on 01-15-2024 Erythrocyte distribution width (RBC) [Ratio] 13.8 % 11.6-14.6 [facility] Erythrocyte distribution wid th standard deviationOrdered By: Tab Dupont on 01-15-2024 Erythrocyte distribution width (RBC) [Entitic vol] 48.0 fL 35.1-43.9 [facility] Hematocrit Auto (Bld) [Volum e fraction]Ordered By: Tab Dupont on 01-15-2024 Hematocrit (Bld) [Volume fraction] 39.5 % 40-54 [facility] Laboratory - Chemistry and C hemistry - challengeOrdered By: Tab Dupont on 01-15-2024 CO2 [Moles/Vol] 26.0 mmol/L 21.0-32.0 [facility] Urea nitrogen/Creatinine [Mass ratio] 21.6 mg/mg 10-20 [facility] Laboratory - Hematology and Cell countsOrdered By: Tab Dupont on 01-15-2024 MCH (RBC) [Entitic mass] 31.0 pg 27.0-32.0 [facility] MCHC (RBC) [Mass/Vol] 32.9 g/dL 32-36 [facility] Platelet mean volume (Bld) [Entitic vol] 10.4 fL 6.2-12.0 [facility] Platelets (Bld) [#/Vol] 257 10*3/uL 150-450 [facility] No Panel InformationOrdered By: Tab Dupont on 01-15-2024 Estimated GFR (MDRD) Amer 236 mL/min >60 [facility] Comment on above: GFR Calc Estimated GFR (MDRD) Non-Af Amer 195 mL/min >60 [facility] Comment on above: Non- GFR Calc RBC Auto (Bld) [#/Vol]Ordere d By: Tab Dupont on 01-15-2024 RBC (Bld) [#/Vol] 4.19 10*6/uL 4.6-6.2 [facility] Serum or plasma calcium randall urement (mass/volume)Ordered By: Tab Dupont on 01-15-2024 Calcium [Mass/Vol] 8.7 mg/dL 8.5-10.1 [facility] Serum or plasma creatinine m easurement (mass/volume)Ordered By: Tab Dupont on 01-15-2024 Creatinine [Mass/Vol] 0.46 mg/dL 0.70-1.30 [facility] Comment on above: The validity of the calculated GFR & GFRAA in patients over 70 years has not been determined. Clinical correlation is essential. Serum or plasma urea nitroge n measurement (mass/volume)Ordered By: Tab Dupont on 01-15-2024 Urea nitrogen [Mass/Vol] 10 mg/dL 7-18 [facility] Thin prep Papanicolaou smear with manual screeningOrdered By: Tab Dupont on 01-15-2024 Thin prep Papanicolaou smear with manual screening 4 5-15 [facility] Basophil percentageOrdered B y: Tab Dupont on 01-07-2024 Chloride [Moles/Vol] 112 mmol/L 98-107 [facility] Glucose [Mass/Vol] 114 mg/dL 74-106 [facility] Comment on above: Fasting Glucose resu lt from 100 to 125 mg/dL suggests IMPAIRED HOMEOSTASIS per A.D.A. criteria. Hemoglobin (Bld) [Mass/Vol] 13.0 g/dL 13.0-16.5 [facility] Potassium [Moles/Vol] 3.8 mmol/L 3.5-5.1 [facility] Sodium [Moles/Vol] 140 mmol/L 136-145 [facility] WBC (Bld) [#/Vol] 8.1 10*3/uL 4.4-11.0 [facility] Determination of erythrocyte mean corpuscular volume (MCV)Ordered By: Tab Dupont on 01-07-2024 MCV (RBC) [Entitic vol] 92.6 fL 80-94 [facility] Erythrocyte distribution wid th ratioOrdered By: Tab Dupont on 01-07-2024 Erythrocyte distribution width (RBC) [Ratio] 13.8 % 11.6-14.6 [facility] Erythrocyte distribution wid th standard deviationOrdered By: Tab Dupont on 01-07-2024 Erythrocyte distribution width (RBC) [Entitic vol] 46.5 fL 35.1-43.9 [facility] Hematocrit Auto (Bld) [Volum e fraction]Ordered By: Tab Dupont on 01-07-2024 Hematocrit (Bld) [Volume fraction] 38.9 % 40-54 [facility] - Chemistry and C hemistry - challengeOrdered By: Tab Dupont on 01-07-2024 CO2 [Moles/Vol] 23.0 mmol/L 21.0-32.0 [facility] Urea nitrogen/Creatinine [Mass ratio] 25.5 mg/mg 10-20 [facility] - Hematology and Cell countsOrdered By: Tab Dupont on 01-07-2024 MCH (RBC) [Entitic mass] 31.0 pg 27.0-32.0 [facility] MCHC (RBC) [Mass/Vol] 33.4 g/dL 32-36 [facility] Platelet mean volume (Bld) [Entitic vol] 10.2 fL 6.2-12.0 [facility] Platelets (Bld) [#/Vol] 282 10*3/uL 150-450 [facility] No Panel InformationOrdered By: Tab Dupont on 01-07-2024 Estimated GFR (MDRD) Amer 257 mL/min >60 [facility] Comment on above: GFR Calc Estimated GFR (MDRD) Non-Af Amer 212 mL/min >60 [facility] Comment on above: Non- GFR Calc RBC Auto (Bld) [#/Vol]Ordere d By: Tab Dupont on 01-07-2024 RBC (Bld) [#/Vol] 4.20 10*6/uL 4.6-6.2 [facility] Serum or plasma calcium randall urement (mass/volume)Ordered By: Tab Dupont on 01-07-2024 Calcium [Mass/Vol] 8.5 mg/dL 8.5-10.1 [facility] Serum or plasma creatinine m easurement (mass/volume)Ordered By: Tab Dupont on 01-07-2024 Creatinine [Mass/Vol] 0.43 mg/dL 0.70-1.30 [facility] Comment on above: The validity of the calculated GFR & GFRAA in patients over 70 years has not been determined. Clinical correlation is essential. Serum or plasma urea nitroge n measurement (mass/volume)Ordered By: Tab Dupont on 01-07-2024 Urea nitrogen [Mass/Vol] 11 mg/dL 7-18 [facility] Thin prep Papanicolaou smear with manual screeningOrdered By: Tab Dupont on 01-07-2024 Thin prep Papanicolaou smear with manual screening 5 5-15 [facility] Whole blood hemoglobin A1c/t otal hemoglobin ratio (mass fraction)Ordered By: Tab Dupont on 01-04-2024 HbA1c (Bld) [Mass fraction] 6.3 % 3.8-5.6 [facility] Comment on above: Normal < 5.7 % Predi abetic 5.7 - 6.4 % Diabetic >or= 6.5 % Please note range changes. Basophil percentageOrdered B y: Tab Dupont on 12-31-2023 Chloride [Moles/Vol] 107 mmol/L 98-107 [facility] Glucose [Mass/Vol] 145 mg/dL 74-106 [facility] Comment on above: Fasting Glucose resu lt greater than or equal to 126 mg/dL suggests DIABETES MELLITUS per A.D.A. criteria. Hemoglobin (Bld) [Mass/Vol] 12.5 g/dL 13.0-16.5 [facility] Potassium [Moles/Vol] 3.4 mmol/L 3.5-5.1 [facility] Sodium [Moles/Vol] 136 mmol/L 136-145 [facility] WBC (Bld) [#/Vol] 7.7 10*3/uL 4.4-11.0 [facility] Determination of erythrocyte mean corpuscular volume (MCV)Ordered By: Tab Dupont on 12-31-2023 MCV (RBC) [Entitic vol] 93.0 fL 80-94 [facility] Erythrocyte distribution wid th ratioOrdered By: Tab Dupont on 12-31-2023 Erythrocyte distribution width (RBC) [Ratio] 14.1 % 11.6-14.6 [facility] Erythrocyte distribution wid th standard deviationOrdered By: Tab Dupont on 12-31-2023 Erythrocyte distribution width (RBC) [Entitic vol] 48.5 fL 35.1-43.9 [facility] Hematocrit Auto (Bld) [Volum e fraction]Ordered By: Tab Dupont on 12-31-2023 Hematocrit (Bld) [Volume fraction] 37.0 % 40-54 [facility] - Chemistry and C hemistry - challengeOrdered By: Tab Dupont on 12-31-2023 CO2 [Moles/Vol] 23.0 mmol/L 21.0-32.0 [facility] Urea nitrogen/Creatinine [Mass ratio] 29.1 mg/mg 10-20 [facility] - Hematology and Cell countsOrdered By: Tab Dupont on 12-31-2023 MCH (RBC) [Entitic mass] 31.4 pg 27.0-32.0 [facility] MCHC (RBC) [Mass/Vol] 33.8 g/dL 32-36 [facility] Platelet mean volume (Bld) [Entitic vol] 11.0 fL 6.2-12.0 [facility] Platelets (Bld) [#/Vol] 199 10*3/uL 150-450 [facility] No Panel InformationOrdered By: Tab Dupont on 12-31-2023 Estimated GFR (MDRD) Amer 299 mL/min >60 [facility] Comment on above: GFR Calc Estimated GFR (MDRD) Non-Af Amer 247 mL/min >60 [facility] Comment on above: Non- GFR Calc RBC Auto (Bld) [#/Vol]Ordere d By: Tab Dupont on 12-31-2023 RBC (Bld) [#/Vol] 3.98 10*6/uL 4.6-6.2 [facility] Serum or plasma calcium randall urement (mass/volume)Ordered By: Tab Dupont on 12-31-2023 Calcium [Mass/Vol] 8.6 mg/dL 8.5-10.1 [facility] Serum or plasma creatinine m easurement (mass/volume)Ordered By: Tab Dupont on 12-31-2023 Creatinine [Mass/Vol] 0.38 mg/dL 0.70-1.30 [facility] Comment on above: The validity of the calculated GFR & GFRAA in patients over 70 years has not been determined. Clinical correlation is essential. Serum or plasma urea nitroge n measurement (mass/volume)Ordered By: Tab Dupont on 12-31-2023 Urea nitrogen [Mass/Vol] 11 mg/dL 7-18 [facility] Thin prep Papanicolaou smear with manual screeningOrdered By: Tab Dupont on 12-31-2023 Thin prep Papanicolaou smear with manual screening 6 5-15 [facility] Basophil percentageOrdered B y: Tab Dupont on 12-04-2023 Basophil percentage 25-50 SEEN /hpf 0-5 [facility] Bilirubin Test strip Ql (U)O rdered By: Tab Dupont on 12-04-2023 Bilirubin Ql (U) Negative Negative [facility] Calcium oxalate crystals det ection in urine sediment by light microscopyOrdered By: Tab Dupont on 12-04-2023 Calcium oxalate crystals LM Ql (Urine sed) 2+ /hpf [facility] Culture, urineOrdered By: Vinh Lehman on 12-04-2023 Bacteria identified Cx Nom (U) ESBL Klebsiella pneumoniae pne [facility] Bacteria identified Cx Nom (U) Proteus mirabilis [facility] Ketones Test strip Ql (U)Ord ered By: Tab Dupont on 12-04-2023 Ketones Ql (U) 5 mg/dl Negative [facility] Magnesium ammonium phosphate crystal detectionOrdered By: Tab Dupont on 12-04-2023 Triple phosphate crystals LM Ql (Urine sed) 2+ /hpf [facility] Mucus LM Ql (Urine sed)Order ed By: Tab Dupont on 12-04-2023 Mucus Ql (Urine sed) 0 SEEN /hpf [facility] Nitrite Test strip Ql (U)Ord ered By: Tab Dupont on 12-04-2023 Nitrite Ql (U) Negative Negative [facility] No Panel InformationOrdered By: Tab Dupont on 12-04-2023 Urine RBC 10-25 SEEN /hpf 0-5 [facility] Protein Test strip Ql (U)Ord ered By: Tab Dupont on 12-04-2023 Protein Ql (U) 30 mg/dl Negative [facility] Squamous epithelial cells de tection in urine sediment by light microscopyOrdered By: Tab Dupont on 12-04-2023 Epithelial cells.squamous LM Ql (Urine sed) 0 SEEN /hpf 0-5 [facility] Urine blood detectionOrdered By: Tab Dupont on 12-04-2023 RBC Ql (U) 150 /ul Negative [facility] Urine clarityOrdered By: Regino Dupont on 12-04-2023 Clarity (U) Cloudy Clear [facility] Urine color determinationOrd ered By: Tab Dupont on 12-04-2023 Color (U) Yellow Yellow [facility] Urine glucose detectionOrder ed By: Tab Dupont on 12-04-2023 Glucose Ql (U) Normal mg/dl Normal [facility] Urine leukocyte esterase det ection by dipstickOrdered By: Tab Dupont on 12-04-2023 Leukocyte esterase Test strip Ql (U) 500 /ul Negative [facility] Urine pHOrdered By: Tab cordova on 12-04-2023 pH (U) 8.0 [pH] 5.0 - 8.0 [facility] Urine sediment bacteria coun t by microscopy (number/high power field)Ordered By: Tab Dupont on 12-04-2023 Bacteria LM.HPF (Urine sed) [#/Area] 3 /[HPF] None Seen [facility] Urine specific gravity measu rementOrdered By: Tab Dupont on 12-04-2023 Specific gravity (U) [Rel density] 1.015 1.002-1.030 [facility] Urine urobilinogen measureme ntOrdered By: Tab Dupont on 12-04-2023 Urobilinogen Ql (U) Normal mg/dl Normal [facility] Amorphous sediment detection in urine sediment by light microscopyOrdered By: Tab Dupont on 10-25-2023 Amorphous sediment LM Ql (Urine sed) 3+ [facility] Basophil percentageOrdered B y: Tab Dupont on 10-25-2023 Basophil percentage 0-5 SEEN /hpf 0-5 [facility] Bilirubin Test strip Ql (U)O rdered By: Tab Dupont on 10-25-2023 Bilirubin Ql (U) Negative Negative [facility] Culture, urineOrdered By: Vinh Lehman on 10-25-2023 Bacteria identified Cx Nom (U) ESBL Klebsiella pneumoniae pne [facility] Bacteria identified Cx Nom (U) Proteus mirabilis [facility] Ketones Test strip Ql (U)Ord ered By: Tab Dupont on 10-25-2023 Ketones Ql (U) Negative Negative [facility] Mucus LM Ql (Urine sed)Order ed By: Tab Dupont on 10-25-2023 Mucus Ql (Urine sed) 0 SEEN /hpf [facility] Nitrite Test strip Ql (U)Ord ered By: Tab Dupont on 10-25-2023 Nitrite Ql (U) Negative Negative [facility] No Panel InformationOrdered By: Tab Dupont on 10-25-2023 Urine RBC 0-5 SEEN /hpf 0-5 [facility] Protein Test strip Ql (U)Ord ered By: Tab Dupont on 10-25-2023 Protein Ql (U) 500 mg/dl Negative [facility] Squamous epithelial cells de tection in urine sediment by light microscopyOrdered By: Tab Dupont on 10-25-2023 Epithelial cells.squamous LM Ql (Urine sed) 0 SEEN /hpf 0-5 [facility] Urine blood detectionOrdered By: Tab Dupont on 10-25-2023 RBC Ql (U) 150 /ul Negative [facility] Urine clarityOrdered By: Regino Dupont on 10-25-2023 Clarity (U) Cloudy Clear [facility] Urine color determinationOrd ered By: Tab Dupont on 10-25-2023 Color (U) YELLOW Yellow [facility] Urine glucose detectionOrder ed By: Tab Dupont on 10-25-2023 Glucose Ql (U) Normal mg/dl Normal [facility] Urine leukocyte esterase det ection by dipstickOrdered By: Tab Dupont on 10-25-2023 Leukocyte esterase Test strip Ql (U) 500 /ul Negative [facility] Urine pHOrdered By: Tab cordova on 10-25-2023 pH (U) 8.0 [pH] 5.0 - 8.0 [facility] Urine sediment bacteria coun t by microscopy (number/high power field)Ordered By: Tab Dupont on 10-25-2023 Bacteria LM.HPF (Urine sed) [#/Area] 1 /[HPF] None Seen [facility] Urine sediment uric acid cry stal count by microscopy (number/high power field)Ordered By: Tab Dupont on 10-25-2023 Urate crystals LM.HPF (Urine sed) [#/Area] 3 /[HPF] [facility] Urine specific gravity measu rementOrdered By: Tab Dupont on 10-25-2023 Specific gravity (U) [Rel density] 1.010 1.002-1.030 [facility] Urine urobilinogen measureme ntOrdered By: Tab Dupont on 10-25-2023 Urobilinogen Ql (U) Normal mg/dl Normal [facility] Whole blood hemoglobin A1c/t otal hemoglobin ratio (mass fraction)Ordered By: Tab Dupont on 08-10-2023 HbA1c (Bld) [Mass fraction] 6.2 % 3.8-5.6 [facility] Comment on above: Normal < 5.7 % Predi abetic 5.7 - 6.4 % Diabetic >or= 6.5 % Please note range changes. Whole blood hemoglobin A1c/t otal hemoglobin ratio (mass fraction)Ordered By: Tab Dupont on 08-07-2023 HbA1c (Bld) [Mass fraction] 6.2 % 3.8-5.6 [facility] Comment on above: Normal < 5.7 % Predi abetic 5.7 - 6.4 % Diabetic >or= 6.5 % Please note range changes. Amorphous sediment detection in urine sediment by light microscopyOrdered By: Tab Dupont on 07-31-2023 Amorphous sediment LM Ql (Urine sed) 2+ [facility] Basophil percentageOrdered B y: Tab Dupont on 07-31-2023 Basophil percentage 50-100 SEEN /hpf 0-5 [facility] Bilirubin Test strip Ql (U)O rdered By: Tab Dupont on 07-31-2023 Bilirubin Ql (U) Negative Negative [facility] Culture, urineOrdered By: Vinh Lehman on 07-31-2023 Bacteria identified Cx Nom (U) ESBL Klebsiella pneumoniae pne [facility] Bacteria identified Cx Nom (U) Proteus mirabilis [facility] Ketones Test strip Ql (U)Ord ered By: Tab Dupont on 07-31-2023 Ketones Ql (U) Negative Negative [facility] Mucus LM Ql (Urine sed)Order ed By: Tab Dupont on 07-31-2023 Mucus Ql (Urine sed) 0 SEEN /hpf [facility] Nitrite Test strip Ql (U)Ord ered By: Tab Dupont on 07-31-2023 Nitrite Ql (U) Negative Negative [facility] Protein Test strip Ql (U)Ord ered By: Tab Dupont on 07-31-2023 Protein Ql (U) 30 mg/dl Negative [facility] Squamous epithelial cells de tection in urine sediment by light microscopyOrdered By: Tab Dupont on 07-31-2023 Epithelial cells.squamous LM Ql (Urine sed) 0 SEEN /hpf 0-5 [facility] Urine blood detectionOrdered By: Tab Dupont on 07-31-2023 RBC Ql (U) 250 /ul Negative [facility] RBC Ql (U) 07-29 SEEN /hpf 0-5 [facility] Urine clarityOrdered By: Regino Dupont on 07-31-2023 Clarity (U) Cloudy Clear [facility] Urine color determinationOrd ered By: Tab Dupont on 07-31-2023 Color (U) Yellow Yellow [facility] Urine glucose detectionOrder ed By: Tab Dupont on 07-31-2023 Glucose Ql (U) Normal mg/dl Normal [facility] Urine leukocyte esterase det ection by dipstickOrdered By: Tab Dupont on 07-31-2023 Leukocyte esterase Test strip Ql (U) 500 /ul Negative [facility] Urine pHOrdered By: Tab cordova on 07-31-2023 pH (U) 7.0 [pH] 5.0 - 8.0 [facility] Urine sediment bacteria coun t by microscopy (number/high power field)Ordered By: Tab Dupont on 07-31-2023 Bacteria LM.HPF (Urine sed) [#/Area] 0 /[HPF] None Seen [facility] Urine specific gravity measu rementOrdered By: Tab Dupont on 07-31-2023 Specific gravity (U) [Rel density] 1.010 1.002-1.030 [facility] Urobilinogen Auto test strip Ql (U)Ordered By: Tab Dupont on 07-31-2023 Urobilinogen Ql (U) Normal mg/dl Normal [facility] Basophil percentageOrdered B y: Tab Dupont on 06-29-2023 Chloride [Moles/Vol] 108 mmol/L 98-107 [facility] Glucose [Mass/Vol] 169 mg/dL 74-106 [facility] Comment on above: Fasting Glucose resu lt greater than or equal to 126 mg/dL suggests DIABETES MELLITUS per A.D.A. criteria. Potassium [Moles/Vol] 3.4 mmol/L 3.5-5.1 [facility] Sodium [Moles/Vol] 139 mmol/L 136-145 [facility] WBC (Bld) [#/Vol] 6.4 10*3/uL 4.4-11.0 [facility] Blood erythrocytes count (nu mber/volume)Ordered By: Tab Dupont on 06-29-2023 RBC (Bld) [#/Vol] 4.05 10*6/uL 4.6-6.2 [facility] Blood hemoglobin measurement (mass/volume)Ordered By: Tab Dupont on 06-29-2023 Hemoglobin (Bld) [Mass/Vol] 12.6 g/dL 13.0-16.5 [facility] Blood platelet mean volumeOr dered By: Tab Dupont on 06-29-2023 Platelet mean volume (Bld) [Entitic vol] 10.0 fL 6.2-12.0 [facility] Determination of erythrocyte mean corpuscular volume (MCV)Ordered By: Tab Dupont on 06-29-2023 MCV (RBC) [Entitic vol] 97.3 fL 80-94 [facility] Hematocrit Auto (Bld) [Volum e fraction]Ordered By: Tab Dupont on 06-29-2023 Hematocrit (Bld) [Volume fraction] 39.4 % 40-54 [facility] Laboratory - Chemistry and C hemistry - challengeOrdered By: Tab Dupont on 06-29-2023 CO2 [Moles/Vol] 24.0 mmol/L 21.0-32.0 [facility] Urea nitrogen/Creatinine [Mass ratio] 28.8 mg/mg 10-20 [facility] Laboratory - Hematology and Cell countsOrdered By: Tab Dupont on 06-29-2023 Erythrocyte distribution width (RBC) [Entitic vol] 48.6 fL 35.1-43.9 [facility] Erythrocyte distribution width (RBC) [Ratio] 13.6 % 11.6-14.6 [facility] MCH (RBC) [Entitic mass] 31.1 pg 27.0-32.0 [facility] MCHC Auto (RBC) [Mass/Vol]Or dered By: Tab Dupont on 06-29-2023 MCHC (RBC) [Mass/Vol] 32.0 g/dL 32-36 [facility] No Panel InformationOrdered By: Tab Dupont on 06-29-2023 Estimated GFR (MDRD) Amer 207 mL/min >60 [facility] Comment on above: GFR Calc Estimated GFR (MDRD) Non-Af Amer 171 mL/min >60 [facility] Comment on above: Non- GFR Calc Platelets bldOrdered By: Pet xenia Dupont on 06-29-2023 Platelets (Bld) [#/Vol] 243 10*3/uL 150-450 [facility] Serum or plasma calcium randall urement (mass/volume)Ordered By: Tab Dupont on 06-29-2023 Calcium [Mass/Vol] 8.3 mg/dL 8.5-10.1 [facility] Serum or plasma creatinine m easurement (mass/volume)Ordered By: Tab Dupont on 06-29-2023 Creatinine [Mass/Vol] 0.52 mg/dL 0.70-1.30 [facility] Comment on above: The validity of the calculated GFR & GFRAA in patients over 70 years has not been determined. Clinical correlation is essential. Serum or plasma urea nitroge n measurement (mass/volume)Ordered By: Tab Dupont on 06-29-2023 Urea nitrogen [Mass/Vol] 15 mg/dL 7-18 [facility] Thin prep Papanicolaou smear with manual screeningOrdered By: Tab Dupont on 06-29-2023 Thin prep Papanicolaou smear with manual screening 7 5-15 [facility] Basophil percentageOrdered B y: Tab Dupont on 06-01-2023 Chloride [Moles/Vol] 112 mmol/L 98-107 [facility] Glucose [Mass/Vol] 133 mg/dL 74-106 [facility] Comment on above: Fasting Glucose resu lt greater than or equal to 126 mg/dL suggests DIABETES MELLITUS per A.D.A. criteria. Potassium [Moles/Vol] 3.8 mmol/L 3.5-5.1 [facility] Sodium [Moles/Vol] 141 mmol/L 136-145 [facility] WBC (Bld) [#/Vol] 6.8 10*3/uL 4.4-11.0 [facility] Blood erythrocytes count (nu mber/volume)Ordered By: Tab Dupont on 06-01-2023 RBC (Bld) [#/Vol] 3.96 10*6/uL 4.6-6.2 [facility] Blood hemoglobin measurement (mass/volume)Ordered By: Tab Dupont on 06-01-2023 Hemoglobin (Bld) [Mass/Vol] 12.7 g/dL 13.0-16.5 [facility] Blood platelet mean volumeOr dered By: Tab Dupont on 06-01-2023 Platelet mean volume (Bld) [Entitic vol] 10.1 fL 6.2-12.0 [facility] Determination of erythrocyte mean corpuscular volume (MCV)Ordered By: Tab Dupont on 06-01-2023 MCV (RBC) [Entitic vol] 99.7 fL 80-94 [facility] Hematocrit Auto (Bld) [Volum e fraction]Ordered By: Tab Dupont on 06-01-2023 Hematocrit (Bld) [Volume fraction] 39.5 % 40-54 [facility] - Chemistry and C hemistry - challengeOrdered By: Tab Dupont on 06-01-2023 CO2 [Moles/Vol] 25.0 mmol/L 21.0-32.0 [facility] Urea nitrogen/Creatinine [Mass ratio] 29.2 mg/mg 10-20 [facility] - Hematology and Cell countsOrdered By: Tab Dupont on 06-01-2023 Erythrocyte distribution width (RBC) [Entitic vol] 54.3 fL 35.1-43.9 [facility] Erythrocyte distribution width (RBC) [Ratio] 14.6 % 11.6-14.6 [facility] MCH (RBC) [Entitic mass] 32.1 pg 27.0-32.0 [facility] MCHC Auto (RBC) [Mass/Vol]Or dered By: Tab Dupont on 06-01-2023 MCHC (RBC) [Mass/Vol] 32.2 g/dL 32-36 [facility] No Panel InformationOrdered By: Tab Dupont on 06-01-2023 Estimated GFR (MDRD) Amer 227 mL/min >60 [facility] Comment on above: GFR Calc Estimated GFR (MDRD) Non-Af Amer 188 mL/min >60 [facility] Comment on above: Non- GFR Calc Platelets bldOrdered By: Regino Dupont on 06-01-2023 Platelets (Bld) [#/Vol] 274 10*3/uL 150-450 [facility] Serum or plasma calcium randall urement (mass/volume)Ordered By: Tab Dupont on 06-01-2023 Calcium [Mass/Vol] 8.5 mg/dL 8.5-10.1 [facility] Serum or plasma creatinine m easurement (mass/volume)Ordered By: Tab Dupont on 06-01-2023 Creatinine [Mass/Vol] 0.48 mg/dL 0.70-1.30 [facility] Comment on above: The validity of the calculated GFR & GFRAA in patients over 70 years has not been determined. Clinical correlation is essential. Serum or plasma urea nitroge n measurement (mass/volume)Ordered By: Tab Dupont on 06-01-2023 Urea nitrogen [Mass/Vol] 14 mg/dL 7-18 [facility] Thin prep Papanicolaou smear with manual screeningOrdered By: Tab Dupont on 06-01-2023 Thin prep Papanicolaou smear with manual screening 4 5-15 [facility] Urinalysis complete panel (U )Ordered By: Darya Nazario on 05-23-2023 Bacteria LM.HPF (Urine sed) [#/Area] Moderate Abnormal Negative /HPF [facility] Bilirubin Ql (U) Negative Negative mg/dL [facility] Clarity (U) Extra Turbid Abnormal Clear [facility] Color (U) Yellow Lt. Yellow [facility] Epithelial cells.squamous LM.HPF (Urine sed) [#/Area] 0-2 [facility] Glucose Ql (U) Normal Normal (<70) mg/dL [facility] Hemoglobin Ql (U) 0.1 mg/dL Abnormal [facility] Interpretation and review of laboratory results Abnormal [facility] Ketones (U) [Mass/Vol] Negative Negat mary grace mg/dL [facility] Leukocyte clumps LM.HPF (Urine sed) [#/Area] Moderate Abnormal Negative /HPF [facility] Leukocyte esterase Test strip Ql (U) 500 Abnormal Negative Da/uL [facility] Mucus LM.HPF (Urine sed) [#/Area] Few Negative /LPF [facility] Nitrite Ql (U) Positive Abnormal Negative [facility] th pH (U) 8.0 [pH] 5.0 - 8.0 pH [facility] Protein (U) [Mass/Vol] 100 mg/dL Abnormal Negative [facility] RBC LM.HPF (Urine sed) [#/Area] /[HPF] Abnormal [facility] Specific gravity (U) [Rel density] 1.014 1.005 - 1.030 [facility] Triple phosphate crystals LM.HPF (Urine sed) [#/Area] Moderate Abnormal Negative /HPF [facility] Urobilinogen (U) [Mass/Vol] Normal Normal (0-1) mg/dL [facility] WBC LM.HPF (Urine sed) [#/Area] /[HPF] Abnormal [facility] Basophil percentageOrdered B y: Tab Dupont on 05-04-2023 Bilirubin [Mass/Vol] 0.20 mg/dL 0.20-1.00 [facility] Comment on above: For patients on eltr ombopag therapy, use of Dimension Orestes TBIL is not recommended. Chloride [Moles/Vol] 109 mmol/L 98-107 [facility] Glucose [Mass/Vol] 183 mg/dL 74-106 [facility] Comment on above: Fasting Glucose resu lt greater than or equal to 126 mg/dL suggests DIABETES MELLITUS per A.D.A. criteria. Potassium [Moles/Vol] 4.0 mmol/L 3.5-5.1 [facility] Protein [Mass/Vol] 6.0 g/dL 6.4-8.2 [facility] Sodium [Moles/Vol] 139 mmol/L 136-145 [facility] WBC (Bld) [#/Vol] 6.7 10*3/uL 4.4-11.0 [facility] Blood erythrocytes count (nu mber/volume)Ordered By: Tab Dupont on 05-04-2023 RBC (Bld) [#/Vol] 3.31 10*6/uL 4.6-6.2 [facility] Blood hemoglobin measurement (mass/volume)Ordered By: Tab Dupont on 05-04-2023 Hemoglobin (Bld) [Mass/Vol] 10.2 g/dL 13.0-16.5 [facility] Blood platelet mean volumeOr dered By: Tab Dupont on 05-04-2023 Platelet mean volume (Bld) [Entitic vol] 10.2 fL 6.2-12.0 [facility] Determination of erythrocyte mean corpuscular volume (MCV)Ordered By: Tab Dupont on 05-04-2023 MCV (RBC) [Entitic vol] 99.1 fL 80-94 [facility] Hematocrit Auto (Bld) [Volum e fraction]Ordered By: Tab Dupont on 05-04-2023 Hematocrit (Bld) [Volume fraction] 32.8 % 40-54 [facility] - Chemistry and C hemistry - challengeOrdered By: Tab Dupont on 05-04-2023 ALP [Catalytic activity/Vol] 104 U/L 45-117 [facility] ALT [Catalytic activity/Vol] 17 U/L 16-61 [facility] CO2 [Moles/Vol] 26.0 mmol/L 21.0-32.0 [facility] Globulin (S) [Mass/Vol] 3.8 g/dL 2.2-4.2 [facility] Urea nitrogen/Creatinine [Mass ratio] 21.9 mg/mg 10-20 [facility] - Hematology and Cell countsOrdered By: Tab Dupont on 05-04-2023 Erythrocyte distribution width (RBC) [Entitic vol] 48.8 fL 35.1-43.9 [facility] Erythrocyte distribution width (RBC) [Ratio] 13.5 % 11.6-14.6 [facility] MCH (RBC) [Entitic mass] 30.8 pg 27.0-32.0 [facility] MCHC Auto (RBC) [Mass/Vol]Or dered By: Tab Dupont on 05-04-2023 MCHC (RBC) [Mass/Vol] 31.1 g/dL 32-36 [facility] No Panel InformationOrdered By: Tab Dupont on 05-04-2023 Estimated GFR (MDRD) Amer 195 mL/min >60 [facility] Comment on above: GFR Calc Estimated GFR (MDRD) Non-Af Amer 161 mL/min >60 [facility] Comment on above: Non- GFR Calc Platelets bldOrdered By: Regino Dupont on 05-04-2023 Platelets (Bld) [#/Vol] 290 10*3/uL 150-450 [facility] Serum or plasma albumin randall urement (mass/volume)Ordered By: Tab Dupont on 05-04-2023 Albumin [Mass/Vol] 2.2 g/dL 3.2-5.0 [facility] Serum or plasma albumin/glob ulin mass ratioOrdered By: Tab Dupont on 05-04-2023 Albumin/Globulin [Mass ratio] 0.6 {ratio} 0.9-2.4 [facility] Serum or plasma calcium randall urement (mass/volume)Ordered By: Tab Dupont on 05-04-2023 Calcium [Mass/Vol] 8.4 mg/dL 8.5-10.1 [facility] Serum or plasma creatinine m easurement (mass/volume)Ordered By: Tab Dupont on 05-04-2023 Creatinine [Mass/Vol] 0.55 mg/dL 0.70-1.30 [facility] Comment on above: The validity of the calculated GFR & GFRAA in patients over 70 years has not been determined. Clinical correlation is essential. Serum or plasma urea nitroge n measurement (mass/volume)Ordered By: Tab Dupont on 05-04-2023 Urea nitrogen [Mass/Vol] 12 mg/dL 7-18 [facility] Thin prep Papanicolaou smear with manual screeningOrdered By: Tab Dupont on 05-04-2023 Thin prep Papanicolaou smear with manual screening 16 U/L 15-37 [facility] Thin prep Papanicolaou smear with manual screening 4 5-15 [facility] Basophil percentageOrdered B y: Tab Dupont on 03-25-2023 Bilirubin [Mass/Vol] 0.30 mg/dL 0.20-1.00 [facility] Comment on above: For patients on eltr ombopag therapy, use of Dimension Orestes TBIL is not recommended. Chloride [Moles/Vol] 107 mmol/L 98-107 [facility] Cholesterol [Mass/Vol] 163 mg/dL <200 [facility] Comment on above: <200 mg/dL Desirable 200-240 mg/dL Borderline >240 mg/dL High Risk Glucose [Mass/Vol] 119 mg/dL 74-106 [facility] Comment on above: Fasting Glucose resu lt from 100 to 125 mg/dL suggests IMPAIRED HOMEOSTASIS per A.D.A. criteria. Potassium [Moles/Vol] 3.6 mmol/L 3.5-5.1 [facility] Protein [Mass/Vol] 6.7 g/dL 6.4-8.2 [facility] Sodium [Moles/Vol] 137 mmol/L 136-145 [facility] Triglyceride [Mass/Vol] 139 mg/dL <199 [facility] Comment on above: The drugs N-Acetylcy steine and Metamizole may falsely depress this assay.Serum Triglycerides Reference Interval Normal <150 mg/dL Borderline high 150 - 199 mg/dL High 200 - 499 mg/dL Very High > or = 500 mg/dL WBC (Bld) [#/Vol] 6.8 10*3/uL 4.4-11.0 [facility] Blood erythrocytes count (nu mber/volume)Ordered By: Tab Dupont on 03-25-2023 RBC (Bld) [#/Vol] 3.71 10*6/uL 4.6-6.2 [facility] Blood hemoglobin measurement (mass/volume)Ordered By: Tab Dupont on 03-25-2023 Hemoglobin (Bld) [Mass/Vol] 11.6 g/dL 13.0-16.5 [facility] Blood platelet mean volumeOr dered By: Tab Dupont on 03-25-2023 Platelet mean volume (Bld) [Entitic vol] 9.9 fL 6.2-12.0 [facility] Determination of erythrocyte mean corpuscular volume (MCV)Ordered By: Tab Dupont on 03-25-2023 MCV (RBC) [Entitic vol] 99.5 fL 80-94 [facility] Hematocrit Auto (Bld) [Volum e fraction]Ordered By: Tab Dupont on 03-25-2023 Hematocrit (Bld) [Volume fraction] 36.9 % 40-54 [facility] - Chemistry and C hemistry - challengeOrdered By: Tab Dupont on 03-25-2023 ALP [Catalytic activity/Vol] 121 U/L 45-117 [facility] ALT [Catalytic activity/Vol] 18 U/L 16-61 [facility] CO2 [Moles/Vol] 23.0 mmol/L 21.0-32.0 [facility] Globulin (S) [Mass/Vol] 4.3 g/dL 2.2-4.2 [facility] Urea nitrogen/Creatinine [Mass ratio] 22.6 mg/mg 10-20 [facility] - Hematology and Cell countsOrdered By: Tab Dupont on 03-25-2023 Erythrocyte distribution width (RBC) [Entitic vol] 50.3 fL 35.1-43.9 [facility] Erythrocyte distribution width (RBC) [Ratio] 13.5 % 11.6-14.6 [facility] MCH (RBC) [Entitic mass] 31.3 pg 27.0-32.0 [facility] MCHC Auto (RBC) [Mass/Vol]Or dered By: Tab Dupont on 03-25-2023 MCHC (RBC) [Mass/Vol] 31.4 g/dL 32-36 [facility] No Panel InformationOrdered By: Tba Dupont on 03-25-2023 Estimated GFR (MDRD) Amer 250 mL/min >60 [facility] Comment on above: GFR Calc Estimated GFR (MDRD) Non-Af Amer 207 mL/min >60 [facility] Comment on above: Non- GFR Calc Prostate Specific Antigen Screen 0.59 ng/mL 0.00-4.00 [facility] Comment on above: This test was perfor med using the TPSA assay method for [facility]. Values obtained with differentassay methods cannot be used interchangably.When changing PSA assays in the course of monitoring apatient, additional sequential testing should be carriedout to confirm baseline values. Thyroid Stimulating Hormone (TSH) 3.33 uIU/mL 0.358-3.74 [facility] Platelets bldOrdered By: Regino Dupont on 03-25-2023 Platelets (Bld) [#/Vol] 301 10*3/uL 150-450 [facility] Serum or plasma albumin randall urement (mass/volume)Ordered By: Tab Dupont on 03-25-2023 Albumin [Mass/Vol] 2.4 g/dL 3.2-5.0 [facility] Serum or plasma albumin/glob ulin mass ratioOrdered By: Tab Dupont on 03-25-2023 Albumin/Globulin [Mass ratio] 0.6 {ratio} 0.9-2.4 [facility] Serum or plasma calcium randall urement (mass/volume)Ordered By: Tab Dupont on 03-25-2023 Calcium [Mass/Vol] 8.7 mg/dL 8.5-10.1 [facility] Serum or plasma cholesterol in HDL measurement (mass/volume)Ordered By: Tab Dupont on 03-25-2023 Cholesterol in HDL [Mass/Vol] 27 mg/dL >40 [facility] Comment on above: The drugs N-Acetylcy steine and Metamizole may falsely depress this assay. Reference Range HDL <40 mg/dL Low HDL Cholesterol HDL >or= 60 mg/dL High HDL Cholesterol Serum or plasma cholesterol in VLDL measurement (mass/volume)Ordered By: Tab Dupont on 03-25-2023 Cholesterol in VLDL [Mass/Vol] 28 mg/dL 5-40 [facility] Serum or plasma creatinine m easurement (mass/volume)Ordered By: Tab Dupont on 03-25-2023 Creatinine [Mass/Vol] 0.44 mg/dL 0.70-1.30 [facility] Comment on above: The validity of the calculated GFR & GFRAA in patients over 70 years has not been determined. Clinical correlation is essential. Serum or plasma low density lipoprotein (LDL) cholesterol measurement (mass/volume)Ordered By: Tab Dupont on 03-25-2023 Cholesterol in LDL [Mass/Vol] 108 mg/dL 0-130 [facility] Serum or plasma urea nitroge n measurement (mass/volume)Ordered By: Tab Dupont on 03-25-2023 Urea nitrogen [Mass/Vol] 10 mg/dL 7-18 [facility] Thin prep Papanicolaou smear with manual screeningOrdered By: Tab Dupont on 03-25-2023 Thin prep Papanicolaou smear with manual screening 13 U/L 15-37 [facility] Thin prep Papanicolaou smear with manual screening 7 5-15 [facility]IVEN[facility]ANMOL ([id number]) 1960 M Date Time Provider Department 12/02/21 [...] (Blistex) - sodium chloride 0.65 % 2 Orange (AYR, OCEAN) - saliva substitute combo no.9 [...] Of Date 12/02/2021 Noted Resolved NO SHOW [[id number]] 08/31/2013 05/29/2020 Perineal abscess [L02.215] 06/13/2019 05/29/2020 [...] Status:Closed by VITALY SMALLWOOD on 12/02/21 Normal [facility] Telephone (HCSIND) GIVEN,ANMOL ([id number]) 1960 M Date Time Provider Department 12/02/21 [...] be happy to answer any questions. Vitaly mSallwood LPN 12/02/2021 9:04 AM Vitaly Smallwood LPN [...] (Blistex) - sodium chloride 0.65 % 2 Orange (AYR, OCEAN) - saliva substitute combo no.9 [...] Of Date 12/02/2021 Noted Resolved NO SHOW [[id number]] 08/31/2013 05/29/2020 Perineal abscess [L02.215] 06/13/2019 05/29/2020 [...] WALLACE SMALLWOOD (more content not included)... Normal [facility] Telephone (HCSIND) ANMOL REYNOLDS ([id number]) 1960 M Date Time Provider Department 12/02/21 VITALY SMALLWOOD During your visit today, we recorded the following information about you: Vitaly Smallwood LPN 12/02/2021 9:06 AM Signed Please advise if you are agreeable to signing and following for C services? Our Clinicians will be sending the [...] Known Allergies) Date Reviewed: 11/30/2021 Reviewed by: Sluma Hurst, LIBRADO - Fully Assessed Reason for [...] (Blistex) - sodium chloride 0.65 % 2 Orange (AYR, OCEAN) - saliva substitute combo no.9 [...] Of Date 12/02/2021 Noted Resolved NO SHOW [[id number]] 08/31/2013 05/29/2020 Perineal abscess [L02.215] 06/13/2019 05/29/2020 [...] Status:Closed by VITALY SMALLWOOD on 12/02/21 Normal [facility] ANTISMOOTH MUSCLE ABon 10-15 ANTISMOOTH MUSCLE AB Negative Normal NEGATIVE [facility] [place] Comment on above: Performed By: #### A SMAB #### [facility] [id number] [place] [address] SEEMA-WITH REFLEX TO ENAon SEEMA WITH REFLEX TO AYDEE Negative Normal NEGATIVE [facility] Comment on above: Result Comment: The Antinuclear Antibody (SEEMA) test was performed using indirect immunofluorescence assay with HEp-2 cells slide. Performed By: #### A NA2 #### [facility] [address] [place] [address] COMPREHENSIVE PANELon 2021 Glucose [Mass/Vol] 916 mg/dL Critically high 74 - 99 [facility] Comment on above: Order Comment: READ BACK CRIT GLU TO FAREED [place], 10/12/2021 00:08 Result Comment: READ BACK CRIT GLU TO [place], 10/12/2021 00:08 Performed By: #### C MP #### [facility] [id number] [place] [address] Albumin [Mass/Vol] 3.9 g/dL Normal 3.4 - 5.0 [facility] Comment on above: Order Comment: READ BACK CRIT GLU TO [place], 10/12/2021 00:08 Performed By: #### C MP #### [facility] [address] [place] [address] ALP [Catalytic activity/Vol] 235 U/L High 33 - 136 [facility] Comment on above: Order Comment: READ BACK CRIT GLU TO [place], 10/12/2021 00:08 Performed By: #### C MP #### [facility] [address] [place] [address] ALT [Catalytic activity/Vol] 192 U/L High 10 - 52 [facility] Comment on above: Order Comment: READ BACK CRIT GLU TO [place], 10/12/2021 00:08 Result Comment: Blanca ents treated with Sulfasalazine may generate falsely decreased results for ALT. Performed By: #### C MP #### [facility] [address] [place] [address] Anion gap [Moles/Vol] 16 mmol/L Normal 10 - 20 [facility] Comment on above: Order Comment: READ BACK CRIT GLU TO [place], 10/12/2021 00:08 Performed By: #### C MP #### [facility] [address] [place] [address] AST [Catalytic activity/Vol] 141 U/L High 9 - 39 [facility] Comment on above: Order Comment: READ BACK CRIT GLU TO [place], 10/12/2021 00:08 Performed By: #### C MP #### [facility] [address] [place] [address] Bilirubin [Mass/Vol] 0.7 mg/dL Normal 0.0 - 1.2 [facility] [place] Comment on above: Order Comment: READ BACK CRIT GLU TO [place], 10/12/2021 00:08 Performed By: #### C MP #### [facility] [address] [place] [address] Calcium [Mass/Vol] 9.0 mg/dL Normal 8.6 - 10.6 [facility] Comment on above: Order Comment: READ BACK CRIT GLU TO [place]AREED [place], 10/12/2021 00:08 Performed By: #### C MP #### [facility] [address] [place] [address] Chloride [Moles/Vol] 91 mmol/L Low 98 - 107 [facility], [place], [facility] Comment on above: Order Comment: READ BACK CRIT GLU TO [place], 10/12/2021 00:08 Performed By: #### C MP #### [facility] [address] [place] [address] Creatinine [Mass/Vol] 0.62 mg/dL Normal 0.50 - 1.30 [facility] Comment on above: Order Comment: READ BACK CRIT GLU TO [place], 10/12/2021 00:08 Performed By: #### C MP #### [facility] [address] [place] [address] eGFR MALE >90 Normal >90 [facility] Comment on above: Order Comment: READ BACK CRIT GLU TO [place], 10/12/2021 00:08 Result Comment: CALC ULATIONS OF ESTIMATED GFR ARE PERFORMED USING THE 2020 CKD-EPI STUDY REFIT EQUATION WITHOUT THE RACE VARIABLE FOR THE IDMS-TRACEABLE CREATININE METHODS. https://jasn.asnjournals.org/content/early//ASN.771 5774988 Performed By: #### C MP #### [facility] [address] [place] [address] HCO3 (Bld) [Moles/Vol] 25 mmol/L Normal 21 - 32 [facility] Comment on above: Order Comment: READ BACK CRIT GLU TO [place], 10/12/2021 00:08 Performed By: #### C MP #### [facility] [address] [place] [address] Potassium [Moles/Vol] 4.5 mmol/L Normal 3.5 - 5.3 [facility] Comment on above: Order Comment: READ BACK CRIT GLU TO [place], 10/12/2021 00:08 Performed By: #### C MP #### [facility] [address] [place] [address] Protein [Mass/Vol] 5.9 g/dL Low 6.4 - 8.2 [facility] Comment on above: Order Comment: READ BACK CRIT GLU TO [place], 10/12/2021 00:08 Performed By: #### C MP #### [facility] [address] [place] [address] Sodium [Moles/Vol] 127 mmol/L Low 136 - 145 [facility] Comment on above: Order Comment: READ BACK CRIT GLU TO [place], 10/12/2021 00:08 Performed By: #### C MP #### [facility] [address] [place] [address] Urea nitrogen [Mass/Vol] 14 mg/dL Normal 6 - 23 [facility] Comment on above: Order Comment: READ BACK CRIT GLU TO [place], 10/12/2021 00:08 Performed By: #### C MP #### [facility] [address] [place] [address] FERRITINon 10-12-2021 FERRITIN 1311 ug/L High 20 - 300 [facility] Comment on above: Performed By: #### F ERRI #### [facility] [address] [place] [address] IGG SUBCLASS 4on 10-12-2021 IGG SUBCLASS 4 25 mg/dL Normal 3 - 200 [facility], [place], [facility] Comment on above: Performed By: #### I GGG4 #### [facility] [address] [place] [address] IRON + TIBCon 10-12-2021 % SATURATION 70 % High 25 - 45 [facility] Comment on above: Performed By: #### I RONT #### [facility] [address] [place] [address] Iron [Mass/Vol] 180 ug/dL High 35 - 150 [facility], [place], [facility] Comment on above: Performed By: #### I RONT #### [facility] [address] [place] [address] TIBC 257 ug/dL Normal 240 - 445 [facility] Comment on above: Performed By: #### I RONT #### [facility] [address] [place] [address] Sahil 09-10-2021 CNPN Telephone (PODCCP) GIVEN,ANMOL ([id number]) 1960 M Date Time Provider Department 09/10/21 [...] (SAFETYGLIDE INSULIN) 0.3 mL 29 gauge x 1/2 syrg Use with humalog 3times daily with [...] Of Date 09/10/2021 Noted Resolved NO SHOW [784446] 08/31/2013 05/29/2020 Perineal abscess [L02.215] 06/13/2019 05/29/2020 [...] Encounter Status:Closed by NEHEMIAS MCMANUS on 09/10/21 [facility] Sahil 08-14-2021 CNPN Telephone (GENSME) ANMOL REYNOLDS ([id number]) 1960 Jamie Date Time Provider Department 08/14/21 PENNY CAMERON [...] Of Date 08/14/2021 Noted Resolved NO SHOW [[id number]] 08/31/2013 05/29/2020 Perineal abscess [L02.215] 06/13/2019 05/29/2020 Nicotine use disorder, F17.2 [F17.200] 06/14/2019 Pilonidal cyst without abscess [L05.91] 05/29/2020 Pilonidal cyst with abscess [L05.01] 12/31/2020 Perirectal abscess [K61.1] 01/16/2021 Diabetes (HCC) [E11.9] 01/18/2021 Encounter Status:Closed by BRYNN ARREOLA on 08/14/21 [facility] Sahil 08-09-2021 CNPN Telephone ([facility]) ANMOL REYNOLDS ([id number]) 1960 Jamie Date Time Provider Department 08/09/21 PENNY CAMERON During your visit today, we recorded the following information about you: Byron Espinal RN 08/09/2021 2:56 PM Signed Records received from [facility] Records labeled and placed in records folder near [facility] desk Allergies As of Date: 08/09/2021 (No Known Allergies) Date Reviewed: 08/08/2021 Reviewed by: Penny Cameron MD - Fully Assessed Reason for Visit: Received Outside Medical Records [[id number]] Prescriptions as of 08/23/2021 - gabapentin (NEURONTIN) [...] Of Date 08/09/2021 Noted Resolved NO SHOW [[id number]] 08/31/2013 05/29/2020 Perineal abscess [L02.215] 06/13/2019 05/29/2020 Nicotine use disorder, F17.2 [F17.200] 06/14/2019 Pilonidal cyst without abscess [L05.91] 05/29/2020 Pilonidal cyst with abscess [L05.01] 12/31/2020 Perirectal abscess [K61.1] 01/16/2021 Diabetes (HCC) [E11.9] 01/18/2021 Encounter Status:Closed by BYRON ESPINAL RN on 08/23/21 [facility] CNOVon 08-05-2021 CNOV Office Visit ([facility] ) ANMOL REYNOLDS ([id number]) 1960 M Date Time Provider Department 08/05/21 10:15 AM PENNY CAMERON During your visit today, we recorded the following information about you: Pulse Blood pressure Weight Height 66/minute 102/74 63.5 kg 1.88 m Penny Cameron MD 08/21/2021 2:37 PM Signed Assessment IMPRESSION/PLAN: Anoml Reynolds is a 61 year old male [...] in 01/2021. Pt c/o pilonidal abscess that burst last week, since has no pain, no [...] vision, no nose bleeds or other nasal problems CARDIOVASCULAR: Negative for chest pain, Negative for [...] 102/74 Pulse 66 Ht 188 cm (6' 2) Wt 63.5 kg (140 lb) BMI 17.97 [...] at 1 (more content not included)... Normal [facility] CA 19-9on 05-23-2021 CA 19-9 284 U/mL High <36 [facility] Comment on above: Performed By: #### C A199 #### [facility] Immunology [address] [place] [phone] #### TSH, FT4, FREET3 #### [facility] Routine Lab [address] [place] [phone] Free T3on 05-22-2021 Free T3 [Mass/Vol] 1.7 pg/mL Low 2.3-4.1 [facility] Comment on above: Performed By: #### C A199 #### [facility] Immunology [address] [place] [address] #### TSH, FT4, FREET3 #### [facility] Routine Lab [facility] [place] [phone] Free T4on 05-22-2021 Free T4 [Mass/Vol] 1.2 ng/dL Normal 0.9-1.7 [facility] Comment on above: Performed By: #### C A199 #### [facility] Immunology [address] [place] [address] #### TSH, FT4, FREET3 #### [facility] Routine Lab [address] [place], [place] [address] TSHon 05-22-2021 TSH Qn 1.450 m[IU]/L Normal 0.270-4.200 [facility] Comment on above: Performed By: #### C A199 #### [facility] Immunology [address] [place] [address] #### TSH, FT4, FREET3 #### [facility] Routine Lab [address] [place] [address] Basic Metabolic Panelon 10-06 Anion gap [Moles/Vol] 14 mmol/L Normal 9-15 [facility] Comment on above: Performed By: #### B MP #### [facility] [address] [place] [address] Calcium [Mass/Vol] 8.4 mg/dL Low 8.5-9.9 [facility] Comment on above: Performed By: #### B MP #### [facility] [address] [place] [address] Chloride [Moles/Vol] 100 mmol/L Normal 95-107 [facility] Comment on above: Performed By: #### B MP #### [facility] [address] [place] [address] CO2 [Moles/Vol] 23 mmol/L Normal 20-31 [facility] Comment on above: Performed By: #### B MP #### [facility] [address] [place] [address] Creatinine [Mass/Vol] 0.57 mg/dL Low 0.70-1.20 [facility] Comment on above: Performed By: #### B MP #### [facility] [address] [place] [address] GFR/1.73 sq M predicted among blacks MDRD (S/P/Bld) [Vol rate/Area] mL/min/{1.73_m2} Normal >60 [facility] Comment on above: Result Comment: >60 mL/min/1.73m2 EGFR, calc. for ages 18 and older using the MDRD formula (not corrected for weight), is valid for stable renal function. Performed By: #### B MP #### [facility] [address] [place] [address] GFR/1.73 sq M.predicted MDRD (S/P/Bld) [Vol rate/Area] mL/min/{1.73_m2} Normal >60 [facility] Comment on above: Result Comment: >60 mL/min/1.73m2 EGFR, calc. for ages 18 and older using the MDRD formula (not corrected for weight), is valid for stable renal function. Performed By: #### B MP #### [facility] [address] [place] [address] Glucose [Mass/Vol] 245 mg/dL Critically high 70-99 [facility] Comment on above: Performed By: #### B MP #### [facility] [address] [place] [address] Potassium [Moles/Vol] 3.9 mmol/L Normal 3.4-4.9 [facility] Comment on above: Performed By: #### B MP #### [facility] [address] [place] [address] Sodium [Moles/Vol] 137 mmol/L Normal 135-144 [facility] Comment on above: Performed By: #### B MP #### [facility] [address] [place] [address] Urea nitrogen [Mass/Vol] 13 mg/dL Normal 6-20 [facility] Comment on above: Performed By: #### B MP #### [facility] [address] [place] [address] Anion gap [Moles/Vol] 14 mmol/L [facility], [place] Calcium [Mass/Vol] 8.4 mg/dL Low 8.5 - 9.9 mg/dL [place], [place] Chloride [Moles/Vol] 100 mmol/L [place] CO2 [Moles/Vol] 23 mmol/L [facility] [place] Creatinine [Mass/Vol] 0.57 mg/dL Low 0.7 - 1.2 mg/dL [place] GFR >60.0 >60 [place] Comment on above: >60 mL/min/1.73m2 EG FR, calc. for ages 18 and older using the MDRD formula (not corrected for weight), is valid for stable renal function. GFR Non- >60.0 >60 [place] Comment on above: >60 mL/min/1.73m2 EG FR, calc. for ages 18 and older using the MDRD formula (not corrected for weight), is valid for stable renal function. Glucose [Mass/Vol] 245 mg/dL High 70 - 99 mg/dL [place] Interpretation and review of laboratory results Abnormal [place] Potassium [Moles/Vol] 3.9 mmol/L [place], [place] Sodium [Moles/Vol] 137 mmol/L [place] Urea nitrogen [Mass/Vol] 13 mg/dL 6 - 20 mg/dL [place] CBC Auto Differentialon 10-06 Basophils (Bld) [#/Vol] 0.0 10*3/uL 0 - 0.2 K/uL [place] Basophils/100 WBC (Bld) 0.4 % [place] Eosinophils (Bld) [#/Vol] 0.2 10*3/uL 0 - 0.7 K/uL [place] Eosinophils/100 WBC (Bld) 1.6 % [place] Erythrocyte distribution width (RBC) [Ratio] 13.1 % 11.5 - 14.5 % [place] Hematocrit (Bld) [Volume fraction] 39.0 % Low 42 - 52 % [place] Hemoglobin (Bld) [Mass/Vol] 13.3 g/dL Low 14 - 18 g/dL [place] Interpretation and review of laboratory results Abnormal [place] Lymphocytes (Bld) [#/Vol] 1.8 10*3/uL 1 - 4.8 K/uL [place] Lymphocytes/100 WBC (Bld) 16.0 % [place] MCH (RBC) [Entitic mass] 33.3 pg High 27 - 31.3 pg [place] MCHC (RBC) [Mass/Vol] 34.0 % 33 - 37 % [place] MCV (RBC) [Entitic vol] 98.0 fL 80 - 100 fL [place] Monocytes (Bld) [#/Vol] 1.2 10*3/uL High 0.2 - 0.8 K/uL [place] Monocytes/100 WBC (Bld) 10.8 % [place] Neutrophils Absolute 7.8 K/uL High 1.4 - 6 .5 K/uL [place] Neutrophils/100 WBC (Bld) 71.2 % [place] Platelets (Bld) [#/Vol] 232 10*3/uL 130 - 400 K/uL [place] RBC (Bld) [#/Vol] 3.98 10*6/uL Low [place] WBC (Bld) [#/Vol] 10.9 10*3/uL High 4.8 - 10.8 K/uL [place] CBC With Platelet and Differ entialon 10-25-2020 Basophils (Bld) [#/Vol] 0.0 10*3/uL Normal 0.0-0.2 [facility] Comment on above: Performed By: #### C BCWD #### [facility] [address] [facility] [address] Basophils/100 WBC (Bld) 0.4 % Normal [facility] Comment on above: Performed By: #### C BCWD #### [facility] [address] [facility] [address] Eosinophils (Bld) [#/Vol] 0.2 10*3/uL Normal 0.0-0.7 [facility] Comment on above: Performed By: #### C BCWD #### [facility] [address] [place] [address] Eosinophils/100 WBC (Bld) 1.6 % Normal [facility] Comment on above: Performed By: #### C BCWD #### [facility] [address] [place] [address] Erythrocyte distribution width (RBC) [Ratio] 13.1 % Normal 11.5-14.5 [facility] Comment on above: Performed By: #### C BCWD #### [facility] [address] [place] [address] Hematocrit (Bld) [Volume fraction] 39.0 % Low 42.0-52.0 [facility] Comment on above: Performed By: #### C BCWD #### [facility] [address] [place] [address] Hemoglobin (Bld) [Mass/Vol] 13.3 g/dL Low 14.0-18.0 [facility] Comment on above: Performed By: #### C BCWD #### [facility] [address] [place] [address] Lymphocytes (Bld) [#/Vol] 1.8 10*3/uL Normal 1.0-4.8 [facility] Comment on above: Performed By: #### C BCWD #### [facility] [address] [place] [address] Lymphocytes/100 WBC (Bld) 16.0 % Normal [facility] Comment on above: Performed By: #### C BCWD #### [facility] [address] [place] [address] MCH (RBC) [Entitic mass] 33.3 pg Critically high 27.0-3 1.3 [facility] Comment on above: Performed By: #### C BCWD #### [facility] [address] [place] [address] MCHC (RBC) [Mass/Vol] 34.0 % Normal 33.0-37.0 [facility] Comment on above: Performed By: #### C BCWD #### [facility] [address] [place] [address] MCV (RBC) [Entitic vol] 98.0 fL Normal 80.0-100.0 [facility] Comment on above: Performed By: #### C BCWD #### [facility] [address] [place] [address] Monocytes (Bld) [#/Vol] 1.2 10*3/uL Critically high 0.2-0. 8 [facility] Comment on above: Performed By: #### C BCWD #### [facility] [address] [place] [address] Monocytes/100 WBC (Bld) 10.8 % Normal [facility] Comment on above: Performed By: #### C BCWD #### [facility] [address] [place] [address] Neutrophils (Bld) [#/Vol] 7.8 10*3/uL Critically high 1.4-6.5 [facility] Comment on above: Performed By: #### C BCWD #### [facility] [address] [place] [address] Neutrophils/100 WBC (Bld) 71.2 % Normal [facility] Comment on above: Performed By: #### C BCWD #### [facility] [address] [place] [address] Platelets (Bld) [#/Vol] 232 10*3/uL Normal 130-400 [facility] Comment on above: Performed By: #### C BCWD #### [facility] [address] [place] [address] RBC (Bld) [#/Vol] 3.98 10*6/uL Low 4.70-6.10 [facility] Comment on above: Performed By: #### C BCWD #### [facility] [address] [place] [address] WBC (Bld) [#/Vol] 10.9 10*3/uL Critically high 4.8-10.8 [facility] Comment on above: Performed By: #### C BCWD #### [facility] [address] [place] [address] Hemoglobin A1con 10-25-2020 HbA1c (Bld) [Mass fraction] 12.1 % Critically high 4.8-5.9 [facility] Comment on above: Performed By: #### A 1C ####[facility] [place] [phone] HbA1c (Bld) [Mass fraction] 12.1 % High 4.8 - 5.9 % [place] Interpretation and review of laboratory results Abnormal [place] POCT Glucoseon 10-25-2020 Glucose [Mass/Vol] 372 mg/dL Critically high 60-115 M [facility] Comment on above: Performed By: #### P GLU #### [facility] [address] [place] [address] POC Performed on ACCU-CHEK Normal [facility] Comment on above: Result Comment: Noti fied RN or MD Performed By: #### P GLU #### [facility] [address] [place] [address] Glucose [Mass/Vol] 372 mg/dL High 60 - 115 mg/dl [place] Interpretation and review of laboratory results Abnormal [place] Performed on ACCU-CHEK [place], [place] Comment on above: Notified RN or MD Glucose [Mass/Vol] 246 mg/dL Critically high 60-115 M [facility] Comment on above: Performed By: #### P GLU #### [facility] [address] [place] [address] POC Performed on ACCU-CHEK Normal [facility] Comment on above: Performed By: #### P GLU #### [facility] [address] [address] Glucose [Mass/Vol] 246 mg/dL High 60 - 115 mg/dl [facility] Interpretation and review of laboratory results Abnormal [facility] [place] Performed on ACCU[facility]K [facility] [place] LESS THAN 1 HOURon 2020 [place] [...] Mickey Branch DO 10/26/20 Final result Normal [facility] OPERATIVE REPORTon OPERATIVE REPORT [place] [id number] OPERATIVE REPORT PATIENT NAME: ANMOL REYNOLDS : 1960 MED REC NO: [id number] ROOM: ACCOUNT NO: [id number] ADMIT DATE: 10/24/2020 PROVIDER: Opal Vigil MD [...] tolerated well. OPAL VIGIL MD [id number] Doc#: [id number] CC: Normal [facility] POCT Glucoseon 10-24-2020 Glucose [Mass/Vol] 439 mg/dL Critically high 60-115 M [facility] Comment on above: Performed By: #### P GLU #### [facility] [address] [place] [address] POC [facility]formed on [facility] Comment on above: Result Comment: Noti fijarod RN or MD Performed By: #### P GLU #### [facility] [address] [place] [address] Glucose [Mass/Vol] 439 mg/dL Critically high 60 - 1 15 mg/dl [place] Interpretation and review of laboratory results Abnormal [place] Performed on ACCU-CHEK [place] Comment on above: Notified RN or MD Glucose [Mass/Vol] 251 mg/dL Critically high 60-115 M [facility] Comment on above: Performed By: #### P GLU #### [facility] [address] [place] [address] POC Performed on [facility] Comment on above: Performed By: #### P GLU #### [facility] [address] [place] [address] Glucose [Mass/Vol] 251 mg/dL High 60 - 115 mg/dl [place] Interpretation and review of laboratory results Abnormal [place]formed [place] Glucose [Mass/Vol] 299 mg/dL Critically high 60-115 [facility] Comment on above: Performed By: #### P GLU #### [facility] [address] [place] [address] POC Performed on [facility] Comment on above: Performed By: #### P GLU #### [facility] [address] [place] [address] Glucose [Mass/Vol] 299 mg/dL High 60 - 115 mg/dl [place] Interpretation and review of laboratory results Abnormal [place] Performed on ACCU-CHEK [facility], [place] COVID-19, NAAon 10-19-2020 COVID-19, JOSSY Not Detected Normal Not Detect [facility] Comment on above: Result Comment: This nucleic acid amplification test was developed and its performance characteristics determined by [employer]. Nucleic acid amplification tests include PCR and [...] detected) result in this assay. Performed at: [facility] [address] [facility] [place], [place] [id number] [employer] Repair Technician: Carmela Sue MD, Phone: [phone] Performed By: #### I RCOV #### [facility] [address] [place] [address] COVID-19, NAAon 10-18-2020 Source Swab Anterior nares Normal [facility] Comment on above: Performed By: #### I RCOV #### [facility] [address] [place] [address] Basic Metabolic Panelon 10-05 Anion gap [Moles/Vol] 14 mmol/L Normal 9-15 [facility] Comment on above: Performed By: #### B MP #### [facility] [address] [place] [address] Calcium [Mass/Vol] 9.3 mg/dL Normal 8.5-9.9 [facility] Comment on above: Performed By: #### B MP #### [facility] [address] [place] [address] Chloride [Moles/Vol] 100 mmol/L Normal 95-107 [facility] Comment on above: Performed By: #### B MP #### [facility] [address] [place] [address] CO2 [Moles/Vol] 23 mmol/L Normal 20-31 [facility] Comment on above: Performed By: #### B MP #### [facility] [address] [place] [address] Creatinine [Mass/Vol] 0.57 mg/dL Low 0.70-1.20 [facility] Comment on above: Performed By: #### B MP #### [facility] [address] [place] [address] GFR/1.73 sq M predicted among blacks MDRD (S/P/Bld) [Vol rate/Area] mL/min/{1.73_m2} Normal >60 [facility] Comment on above: Result Comment: >60 mL/min/1.73m2 EGFR, calc. for ages 18 and older using the MDRD formula (not corrected for weight), is valid for stable renal function. Performed By: #### B MP #### [facility] [address] [place] [address] GFR/1.73 sq M.predicted MDRD (S/P/Bld) [Vol rate/Area] mL/min/{1.73_m2} Normal >60 [facility] Comment on above: Result Comment: >60 mL/min/1.73m2 EGFR, calc. for ages 18 and older using the MDRD formula (not corrected for weight), is valid for stable renal function. Performed By: #### B MP #### [facility] [address] [place] [address] Glucose [Mass/Vol] 275 mg/dL Critically high 70-99 M [facility] Comment on above: Performed By: #### B MP #### [facility] [address] [place] [address] Potassium [Moles/Vol] 4.2 mmol/L Normal 3.4-4.9 [facility] Comment on above: Performed By: #### B MP #### [facility] [address] [place] [address] Sodium [Moles/Vol] 137 mmol/L Normal 135-144 [facility] Comment on above: Performed By: #### B MP #### [facility] [address] [place] [address] Urea nitrogen [Mass/Vol] 11 mg/dL Normal 6-20 [facility] Comment on above: Performed By: #### B MP #### [facility] [address] [place] [address] CBC With Platelet No Differe ntialon 10-15-2020 Erythrocyte distribution width (RBC) [Ratio] 12.7 % Normal 11.5-14.5 [facility] Comment on above: Performed By: #### C BCND #### [facility] [address] [place] [address] Hematocrit (Bld) [Volume fraction] 50.9 % Normal 42.0-52.0 [facility] Comment on above: Performed By: #### C BCND #### [facility] [address] [place] [address] Hemoglobin (Bld) [Mass/Vol] 17.4 g/dL Normal 14.0-18.0 [facility] Comment on above: Performed By: #### C BCND #### [facility] [address] [place] [address] MCH (RBC) [Entitic mass] 33.8 pg Critically high 27.0-3 1.3 [facility] Comment on above: Performed By: #### C BCND #### [facility] [address] [place] [address] MCHC (RBC) [Mass/Vol] 34.2 % Normal 33.0-37.0 [facility] Comment on above: Performed By: #### C BCND #### [facility] [address] [place] [address] MCV (RBC) [Entitic vol] 98.8 fL Normal 80.0-100.0 [facility] Comment on above: Performed By: #### C BCND #### [facility] [address] [place] [address] Platelets (Bld) [#/Vol] 308 10*3/uL Normal 130-400 [facility] Comment on above: Performed By: #### C BCND #### [facility] [address] [place] [address] RBC (Bld) [#/Vol] 5.15 10*6/uL Normal 4.70-6.10 [facility] Comment on above: Performed By: #### C BCND #### [facility] [address] [place] [address] WBC (Bld) [#/Vol] 9.6 10*3/uL Normal 4.8-10.8 [facility] Comment on above: Performed By: #### C BCND #### [facility] [address] [place] [address] Partial Thromboplastin Timeo n 10-15-2020 aPTT Coag (Bld) [Time] 33.9 s Normal 24.4-36.8 [facility] Comment on above: Result Comment: Effe ctive 08/08/2020: Heparin Therapeutic Range: 64.0 ? 98.0 seconds. Performed By: #### P TT #### [facility] [address] [place] [address] Prothrombin Timeon INR Coag (PPP) [Relative time] 0.9 {INR} Normal [facility] Comment on above: Performed By: #### P T #### [facility] [address] [place] [address] PT Coag (PPP) [Time] 12.6 s Normal 12.3-14.9 [facility] Comment on above: Performed By: #### P T #### [facility] [address] [place] [address] MRI Spine Lumbar w/ + w/o Co ntraston 06-15-2018 MRI Spine Lumbar w/ + w/o Contrast Patient Name: ANMOL REYNOLDS MRI Exam Date/Time 06/14/2018 15:59:06 EDT Exam MRI Spine Lumbar w/ + w/o Contrast Ordering Physician [id number] MELITON MCWILLIAMS Accession Number [id number] CPT4 Codes 82863 () Reason For Exam lt leg radiculopathy [...] Transcribed Date and Time: 06/15/2018 8:33 Normal [facility] Glucose, WB POCon 08-05-2017 Glucose mass conc 179 mg/dL High 70-100 [facility] Comment on above: Performed By: #### 1 [id number] ####[facility] [address] [place] [address] Glucose mass conc 194 mg/dL High 70-100 [facility] Healthcare Comment on above: Performed By: #### 1 [id number] ####[facility] [address] [place] [address] SPINE LUMBAR SINGLE VIEWon 10-05-2016 SPINE LUMBAR SINGLE VIEW DATE OF EXAM: N ov 2016 1:18PMCLINICAL HISTORY/ Name: GAIL, BRIANSTUDY:SPINE LUMBAR SINGLE VIEW; 08/05/2017 1:18 pmINDICATION:intra op.COMPARISON:None. CESSION NUMBER(S):[id number] [facility]OPAL MONGE:Single lateral view of the lumbar spine during lumbar spine surgery. Surgical marker at L5-S1 level. Fluoroscopic time is 0.05 sec.CONCLUSION: IMPRESSION:Fluoroscop ic image of the lumbar spine during surgery. Please refer to the surgical note for further details. Normal [facility] CBC With Differentialon 07-07 Basophils Auto #/vol (Bld) 0.02 10*3/uL Normal 0.01-0.09 [facility] Comment on above: Performed By: #### 2 [id number] ####[facility] [address] [place] [address] Basophils/100 WBC Auto (Bld) 0.2 % Normal 0.0-1.3 [facility] Healthcare Comment on above: Performed By: #### 2 715291 ####[facility] [address] [place] [address] Eosinophils 0.02 10*3/uL Normal 0.01-0.46 [facility] Healthcare Comment on above: Performed By: #### 2 511472 ####[facility] [address] [place] [address] Eosinophils/100 leukocytes 0.2 % Normal 0.0-6.7 [facility] Healthcare Comment on above: Performed By: #### 2 120343 ####[facility] [address] [place] [address] Erythrocyte distribution width Auto Ratio (RBC) 12.5 % Normal 12.0-15.4 [facility] Healthcare Comment on above: Performed By: #### 2 176076 ####[facility] [address] [place] [address] Erythrocytes (RBC) 0.00 10*3/uL Normal [facility] Healthcare Comment on above: Performed By: #### 2 [id number] ####[address] [place] [address] Erythrocytes (RBC) 5.10 10*6/uL Normal 4.08-6.37 [facility] Healthcare Comment on above: Performed By: #### 2 566659 ####[address] [place] [address] Erythrocytes (RBC) 0.0 /100{WBCs} Normal [facility] Comment on above: Performed By: #### 2 784546 ####[address] [place] [address] Hematocrit (HCT) 49.7 % Normal 38.4-54.9 [facility] Healthcare Comment on above: Performed By: #### 2 923696 ####[address] [address] Hemoglobin mass conc (Bld) 17.2 g/dL Normal 12.8-17.7 [facility] Comment on above: Performed By: #### 2 866918 ####[facility] [address] [place] [address] Imm Grans Absolute 0.03 10*3/uL Normal 0.00-0.21 [facility] Healthcare Comment on above: Performed By: #### 2 979837 ####[facility] [address] [place] [address] Immature granulocytes #/vol (Bld) 0.3 % Normal [facility] Healthcare Comment on above: Performed By: #### 2 100109 ####[facility] [address] [place] [address] Lymphocytes 1.28 10*3/uL Normal 0.40-2.84 [facility] Healthcare Comment on above: Performed By: #### 2 [id number] ####[facility] [address] [place] [address] Lymphocytes/100 leukocytes 11.9 % Normal 9.4-41.1 [facility] Healthcare Comment on above: Performed By: #### 2 797246 ####[facility] [address] [facility] [address] MCH 33.7 pg High 27.5-32.9 [facility] Comment on above: Performed By: #### 2 086025 ####[facility] [address] [place] [address] MCHC mass conc (RBC) 34.6 g/dL Normal 30.5-35.4 [facility] Comment on above: Performed By: #### 2 544777 ####[facility] [address] [facility] [address] MCV 97.5 fL Normal 83.3-98.2 [facility] Comment on above: Performed By: #### 2 183882 ####[facility] [address] [place] [address] Monocytes 0.85 10*3/uL Normal 0.25-1.33 [facility] Comment on above: Performed By: #### 2 559355 ####[facility] [address] [place] [address] Monocytes/100 leukocytes 7.9 % Normal 3.0-16.2 [facility] Comment on above: Performed By: #### 2 912828 ####[facility] [address] [facility] [address] Neutrophils 8.54 10*3/uL High 2.22-7.53 [facility] Comment on above: Performed By: #### 2 515657 ####[facility] [address] [facility] [address] Neutrophils/100 leukocytes 79.5 % High 46.2-79.1 [facility] Comment on above: Performed By: #### 2 123637 ####[facility] [address] [facility] [address] Platelet mean volume (PMV) 10.4 fL Normal 9.9-12.1 [facility] Comment on above: Performed By: #### 2 531430 ####[facility] [address] [place] [address] Platelets 334 10*3/uL Normal 155-404 [facility] Comment on above: Performed By: #### 2 724440 ####[facility] [address] [place] [address] RDW SD 45.3 fL Normal 39.3-48.6 [facility] Comment on above: Performed By: #### 2 213315 ####[facility] [address] [place] [address] WBC (Leukocytes) 10.7 10*3/uL Normal 4.2-11.0 [facility] Comment on above: Performed By: #### 2 174644 ####[facility] [address] [place] [address] CHEST 2 VIEWS PA AND LATon 1 CHEST 2 VIEWS PA AND LAT DATE OF EXAM: O ct 2016 8:43AMCLINICAL HISTORY/ Name: GIVEN, BRIANSTUDY:CHEST 2 VIEWS PA AND LAT; 08/03/2017 8:43 amINDICATION:preop.CO MPARISON:None.ACCESSI ON NUMBER(S):[id number] RDERING CLINICIAN:OPAL MONGE:There is no definite acute infiltrate. The costophrenic angles are not blunted. There is no pneumothorax. The heart size and mediastinal width are within gross limits of normal. No prior chest radiograph is available for comparison.CONCLUSION : IMPRESSION:No definite acute pulmonary findings Normal [facility] Comprehensive Metabolic Pane antonio 08-03-2017 Alanine aminotransferase (ALT) 18 U/L Normal [facility] Comment on above: Performed By: #### 1 [id number] ####[facility] [address] [place] [address] Albumin 4.9 g/dL Normal 3.4-5.0 [facility] Comment on above: Performed By: #### 1 360979 ####[facility] [address] [place] [address] Albumin/Globulin Ratio 2.0 {ratio} Normal 0.9-2.4 [facility] Comment on above: Performed By: #### 1 [id number] ####[facility] [address] [place] [address] Alkaline phosphatase (ALP) 119 U/L High 45-117 [facility] Comment on above: Performed By: #### 1 598275 ####[facility] [address] [place] [address] Anion gap 15 mmol/L Normal 10-20 [facility] Comment on above: Performed By: #### 1 884968 ####[facility] [address] [place] [address] Aspartate aminotransferase (AST) 15 U/L Normal 13-39 [facility] Comment on above: Performed By: #### 1 287302 ####[facility] [address] [facility] [address] Bicarbonate (HCO3) 22 mmol/L Normal 21-32 [facility] Healthcare Comment on above: Performed By: #### 1 913387 ####[facility] [address] [place] [address] Bilirubin (total) 1.0 mg/dL Normal 0.0-1.2 [facility] Healthcare Comment on above: Performed By: #### 1 464822 ####[facility] [address] [place] [address] BUN/Creatinine Ratio 19 mg/mg Normal 5-25 [facility] Comment on above: Performed By: #### 1 042863 ####[facility] [address] [place] [address] Calcium 10.0 mg/dL Normal 8.6-10.3 [facility] Comment on above: Performed By: #### 1 319108 ####[facility] [address] [facility] [address] Chloride 103 mmol/L Normal 98-107 [facility] Comment on above: Performed By: #### 1 021293 ####[facility] [address] [place] [address] Creatinine 0.64 mg/dL Normal 0.50-1.30 [facility] Comment on above: Performed By: #### 1 356030 ####[facility] [address] [place] [address] eGFR (MDRD) mL/min/{1.73_m2} Normal [facility] Healthcare Comment on above: Result Comment: Inte rpretation for Chronic Kidney Disease:Stages 1&2 >60 Healthy or potential kidney damage.Mild decrease of GFR.Stage 3 30-59 Moderate decrease of GFR.Stage 4 15-29 Severe decrease of GFR.Stage 5 <15 Kidney failure or on dialysis. Performed By: #### 1 050877 ####[facility] [address] [place] [address] Glucose mass conc 233 mg/dL High 70-100 [facility] Comment on above: Performed By: #### 1 847864 ####[facility] [address] [place] [address] Potassium molar conc 3.8 mmol/L Normal 3.5-5.1 [facility] Healthcare Comment on above: Performed By: #### 1 988630 ####[facility] [address] [place] [address] Protein 7.4 g/dL Normal 6.4-8.2 [facility] Comment on above: Performed By: #### 1 950078 ####[facility] [address] [place] [address] Sodium 136 mmol/L Normal 136-145 [facility] Comment on above: Performed By: #### 1 303029 ####[facility] [address] [place] [address] Urea nitrogen 12 mg/dL Normal 6-23 [facility] Comment on above: Performed By: #### 1 126629 ####[facility] [address] [facility] [place] [address] ESR, Westergrenon 08-03-2017 ESR, Westergren 2 mm/h Normal 0-15 [facility] Comment on above: Performed By: #### 2 138446 ####[facility] [address] [facility] [place] [address] Prothrombin Time (PT) & Part ial Thromboplastin (PTT)on 08-03-2017 aPTT 29.2 s Normal 22.1-35.3 [facility] Comment on above: Result Comment: Hepa rin Therapeutic Range: 71 - 97 sec Performed By: #### P TPTT ####[facility] [address] [place] [address] INR Coag RelTime (PPP) 0.84 {INR} Low 0.85-1.16 [facility] Comment on above: Result Comment: Coum john Therapy:1.5 - 2.0 Low Intensity Therapy2.0 - 3.0 Moderate Intensity Therapy2.5 - 3.5 High (1) Intensity Therapy3.0 - 4.0 High (2) Intensity Therapy Performed By: #### P TPTT ####[facility] [address] [facility] [address] Prothrombin time (PT) Coag time (PPP) 11.4 s Normal 11.3-14.5 [facility] Comment on above: Performed By: #### P TPTT ####[facility] [address] [place] [address] Urinalysison 08-03-2017 Ascorbic Acid Negative Normal Negative [facility] Comment on above: Performed By: #### 1 [id number] ####[facility] [address] [place] [address] Automated Urine Microscopy Not indicated Normal [facility] Comment on above: Performed By: #### 1 165933 ####[facility] [address] [place] [address] Bilirubin Ql (U) Negative Normal Negative [facility] Comment on above: Performed By: #### 1 865789 ####[facility] [address] [place] [address] Blood Negative Normal Negative [facility] Comment on above: Performed By: #### 1 941278 ####[facility] [address] [place] [address] Glucose mass conc mg/dL Abnormal Negative [facility] Comment on above: Performed By: #### 1 303965 ####[facility] [address] [place] [address] Protein Negative Normal Negative [facility] Comment on above: Performed By: #### 1 478414 ####[facility] [address] [place] [address] Urine, appearance Clear Normal Clear [facility] Comment on above: Performed By: #### 1 778021 ####[facility] [address] [place] [address] Urine, color Yellow Normal [facility] Comment on above: Performed By: #### 1 014881 ####[facility] [address] [place] [address] Urine, ketones presence Negative Normal Negative [facility] Comment on above: Performed By: #### 1 581120 ####[facility] [address] [place] [address] Urine, nitrite presence Negative Normal Negative [facility] Comment on above: Performed By: #### 1 011080 ####[facility] [address] [place] [address] Urine, pH 5.0 [pH] Normal 5.0-9.0 [facility] Comment on above: Performed By: #### 1 755645 ####[facility] [address] [place] [address] Urine, specific gravity 1.033 Normal 1.003-1.035 [facility] Comment on above: Performed By: #### 1 920231 ####[facility] [address] [place] [address] Urine, urobilinogen <2.0 Normal Negative [facility] Comment on above: Performed By: #### 1 245746 ####[facility] [address] [place] [address] WBC (Leukocytes) Negative Normal Negative [facility] Comment on above: Performed By: #### 1 035974 ####[facility] [address] [place] [address] DX LUMBOSACRAL SPINE, BENDIN G VIEWS ONLY, [...] levels unchanged with flexion or extension. 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 Normal [facility] Vital Signs Date Time Vital Sign Value Performing Clinician Facility 04-28-2025 20:11-0400 Body temperature 97.3 [degF] Brad Campos MD Work Phone: [facility] 04-28-2025 20:11-0400 Diastolic blood pressure 64 mm[Hg] Brad Campos MD Work Phone: [facility] 04-28-2025 20:11-0400 Heart rate 76 /min Brad Campos MD Work Phone: [facility] 04-28-2025 20:11-0400 Respiratory rate 16 /min Brad Campos MD Work Phone: [facility] 04-28-2025 20:11-0400 SaO2% (BldA) [Mass fraction] 92 % Brad Campos MD Work Phone: [facility] 04-28-2025 20:11-0400 Systolic blood pressure 106 mm[Hg] Brad Campos MD Work Phone: [facility] 04-24-2025 13:34-0400 Body height 190.5 cm Brad Campos MD Work Phone: [facility] [employer] 04-22-2025 03:00-0400 Body mass index (BMI) [Ratio] 24.42 kg/m2 Brad Campos MD Work Phone: [facility] [employer] 04-22-2025 03:00-0400 Body weight 88.63 kg Brad Campos MD Work Phone: [facility] 03-14-2025 13:56-0400 Body temperature 98.01 [degF] Milad Goodson MD Work Phone: [facility] 03-14-2025 13:56-0400 Diastolic blood pressure 70 mm[Hg] Milad Goodson MD Work Phone: [facility] 03-14-2025 13:56-0400 Heart rate 84 /min Milad Goodson MD Work Phone: [facility] 03-14-2025 13:56-0400 Respiratory rate 20 /min Milad Goodson MD Work Phone: [facility] 03-14-2025 13:56-0400 SaO2% (BldA) [Mass fraction] 97 % Milad Goodson MD Work Phone: [facility] 03-14-2025 13:56-0400 Systolic blood pressure 107 mm[Hg] Milad Goodson MD Work Phone: [facility] 03-07-2025 08:54-0400 Diastolic blood pressure 52 mm[Hg] Yoana Floresn [employer] TECHNICIAN Work Phone: [facility] [employer] 03-07-2025 08:54-0400 Heart rate 68 /min Yoana Bren [employer] TECHNICIAN Work Phone: [facility] [employer] 03-07-2025 08:54-0400 Systolic blood pressure 107 mm[Hg] Yoana Bren [employer] TECHNICIAN Work Phone: [facility] [employer] 01-31-2025 13:27-0400 Body temperature 98.6 [degF] Milad Goodson MD Work Phone: [facility] 01-31-2025 13:27-0400 Diastolic blood pressure 90 mm[Hg] Milad Goodson MD Work Phone: [facility] 01-31-2025 13:27-0400 Heart rate 80 /min Milad Goodson MD Work Phone: [facility] 01-31-2025 13:27-0400 Respiratory rate 18 /min Milad Goodson MD Work Phone: [facility] 01-31-2025 13:27-0400 SaO2% (BldA) [Mass fraction] 95 % Milad Goodson MD Work Phone: [facility] 01-31-2025 13:27-0400 Systolic blood pressure 136 mm[Hg] Milad Goodson MD Work Phone: [facility] 06-13-2024 10:56-0400 Diastolic blood pressure 72 mm[Hg] [employer] 06-13-2024 10:56-0400 Heart rate 85 /min [employer] 06-13-2024 10:56-0400 Respiratory rate 18 /min [employer] 06-13-2024 10:56-0400 SaO2% (BldA) [Mass fraction] 98 % [employer] 06-13-2024 10:56-0400 Systolic blood pressure 114 mm[Hg] [employer] 05-22-2024 08:09-0400 Body temperature 96.8 [degF] Rodney Guerrero DO Work Phone: [employer] 05-22-2024 08:09-0400 Diastolic blood pressure 76 mm[Hg] Rodney Guerrero DO Work Phone: [employer] 05-22-2024 08:09-0400 Heart rate 70 /min Rodney Guerrero DO Work Phone: [employer] 05-22-2024 08:09-0400 Respiratory rate 16 /min Rodney Geurrero DO Work Phone: [employer] 05-22-2024 08:09-0400 SaO2% (BldA) [Mass fraction] 99 % Rodney Guerrero DO Work Phone: [employer] 05-22-2024 08:09-0400 Systolic blood pressure 128 mm[Hg] Rodney Guerrero DO Work Phone: [employer] 05-19-2024 13:00-0400 Body mass index (BMI) [Ratio] 26.62 kg/m2 Rodney Guerrero DO Work Phone: [employer] 05-19-2024 13:00-0400 Body weight 96.62 kg Rodney Guerrero DO Work Phone: [employer] 05-18-2024 01:26-0400 Body height 190.5 cm Rodney Guerrero DO Work Phone: [employer] 05-06-2024 17:08-0400 Body temperature 98.01 [degF] Dashawn Grimm MD Work Phone: [employer] 05-06-2024 17:08-0400 Diastolic blood pressure 67 mm[Hg] Dashawn Grimm MD Work Phone: [employer] 05-06-2024 17:08-0400 Heart rate 82 /min Dashawn Grimm MD Work Phone: [employer] 05-06-2024 17:08-0400 Respiratory rate 16 /min Dashawn Grimm MD Work Phone: [employer] 05-06-2024 17:08-0400 SaO2% (BldA) [Mass fraction] 91 % Dashawn Grimm MD Work Phone: [employer] 05-06-2024 17:08-0400 Systolic blood pressure 114 mm[Hg] Dashawn Grimm MD Work Phone: [employer] 05-05-2024 18:30-0400 Body height 190.5 cm Dashawn Grimm MD Work Phone: [employer] 05-05-2024 18:30-0400 Body mass index (BMI) [Ratio] 26.62 kg/m2 Dashawn Grimm MD Work Phone: [employer] 05-05-2024 18:30-0400 Body weight 96.62 kg Dashawn Grimm MD Work Phone: [facility] [employer] 04-20-2024 11:39-0400 Body temperature 97.81 [degF] Ene Crawley MD Work Phone: [facility] [employer] 04-20-2024 11:39-0400 Diastolic blood pressure 81 mm[Hg] Ene Crawley MD Work Phone: [facility] [employer] 04-20-2024 11:39-0400 Heart rate 84 /min Ene Crawley MD Work Phone: [facility] [employer] 04-20-2024 11:39-0400 SaO2% (BldA) [Mass fraction] 97 % Ene Crawley MD Work Phone: [facility] [employer] 04-20-2024 11:39-0400 Systolic blood pressure 135 mm[Hg] Ene Crawley MD Work Phone: [facility] [employer] 04-20-2024 09:55-0400 Respiratory rate 18 /min Ene Crawley MD Work Phone: [facility] [employer] 04-19-2024 05:47-0400 Body mass index (BMI) [Ratio] 26.62 kg/m2 Ene Crawley MD Work Phone: [facility] [employer] 04-19-2024 05:47-0400 Body weight 96.6 kg Ene Crawley MD Work Phone: [facility] [employer] 04-17-2024 00:02-0400 Body height 190.5 cm Ene Crawley MD Work Phone: [facility] [employer] 01-29-2024 15:58-0400 Body height 190.5 cm Carlos Gillette MD Work Phone: [facility] [employer] 01-29-2024 15:58-0400 Body mass index (BMI) [Ratio] 22.5 kg/m2 Carlos Gillette MD Work Phone: [facility] [employer] 01-29-2024 15:58-0400 Body weight 81.65 kg Carlos Gillette MD Work Phone: [employer] 12-29-2023 14:56-0400 Body height 190.5 cm Carlos Gillette MD Work Phone: [employer] 12-29-2023 14:56-0400 Body mass index (BMI) [Ratio] 22.87 kg/m2 Carlos Gillette MD Work Phone: [employer] 12-29-2023 14:56-0400 Body weight 83.01 kg Carlos Gillette MD Work Phone: [employer] 05-23-2023 12:06-0400 Diastolic blood pressure 80 mm[Hg] Colt Klein DO Work Phone: [employer] 05-23-2023 12:06-0400 Heart rate 80 /min Colt Klein DO Work Phone: [employer] 05-23-2023 12:06-0400 Respiratory rate 18 /min Colt Klein [employer] Work Phone: [employer] 05-23-2023 12:06-0400 SaO2% (BldA) [Mass fraction] 98 % Colt Klein DO Work Phone: [employer] 05-23-2023 12:06-0400 Systolic blood pressure 110 mm[Hg] Colt Klein DO Work Phone: [employer] 05-23-2023 07:54-0400 Body height 190.5 cm Colt Klein DO Work Phone: [employer] 05-23-2023 07:54-0400 Body mass index (BMI) [Ratio] 22.5 kg/m2 Colt Klein DO Work Phone: [employer] 05-23-2023 07:54-0400 Body temperature 97.9 [degF] Colt Klein DO Work Phone: [employer] 05-23-2023 07:54-0400 Body weight 81.65 kg Colt Klein DO Work Phone: [employer] 10-25-2020 00:47-0500 Body Temperature 97.7 [degF] Opal Vigil [facility], [place] 10-25-2020 00:47-0500 BP Diastolic 59 mm[Hg] [place], [place] 10-25-2020 00:47-0500 BP Systolic 100 mm[facility]Hg[facility] [place] 10-25-2020 00:47-0500 Pulse (Heart Rate) 80 /min [place], [place] 10-25-2020 00:47-0500 Pulse Oximetry 97 % [facility] , [place] 10-25-2020 00:47-0500 Respiratory Rate 16 /min [facility], [place] 10-24-2020 08:01-0500 BMI (Body Mass Index) 25.68 kg/m2 [place], [place] 10-24-2020 08:01-0500 Body weight 90.72 kg [place] 10-24-2020 08:01-0500 Height 188 cm [place] Encounters Encounter Date Encounter Type Care Provider Facility Start: 05-22-2025 ambulatory Ambrosio M Esterle Facility :[facility] Start: 05-15-2025 ambulatory Ambrosio M Esterle Facility :[facility] Start: 05-11-2025 [facility] Ambrosio M Esterle Facility :[facility] Start: 05-09-2025 [facility] Ambrosio M Fair[place]le Facility :[facility] Start: 05-03-2025 ambulatory Ambrosio M Esterle Facility :[facility] Start: 05-01-2025 [facility] Start: 04-21-2025 End: 04-28-2025 Evaluation and management of inpatient Brad Campos MD Work Phone: [facility] Medical Unit 4N Comment on above: Other acute osteomye litis, other site (HCC) (Primary Dx); Pressure injury of coccygeal region, stage 3 ([facility]); Lumbar stenosis with neurogenic claudication; Osteoarthritis, unspecified osteoarthritis type, unspecified site; Other intervertebral disc displacement, lumbar region Start: 04-18-2025 ambulatory Ambrosio M Esterle Facility :[facility] Start: 04-16-2025 ambulatory Ambrosio M Esterle Facility :[facility] Start: 03-24-2025 End: 03-24-2025 Telephone encounter Anmol Herbert MD Work Phone: Urology Start: 03-20-2025 End: 03-20-2025 ambulatory ANMOL HERBERT Facility:[facility] Start: 03-14-2025 End: 03-14-2025 Patient encounter procedure Milad Goodson MD Work Phone: Plastic Surgery Comment on above: Chronic osteomyeliti s (HCC) (Primary Dx); Severe protein-calorie malnutrition (HCC); Ureteral calculi; Complicated UTI (urinary tract infection); Neurogenic bladder; Type 2 diabetes mellitus with hyperglycemia, with long-term current use of insulin (HCC) Start: 03-14-2025 End: 03-14-2025 ambulatory MILAD GOODSON Facility:[facility] Start: 03-07-2025 End: 03-07-2025 Telephone encounter Yoana Sanchez CNP Work Phone: [facility] Comment on above: Other Start: 03-07-2025 End: 03-07-2025 Office outpatient visit 25 minutes Yoana Sanchez CNP Work Phone: [facility] Comment on above: Ureteral stent prese nt (Primary Dx); Kidney stone; Hydronephrosis, unspecified hydronephrosis type Start: 03-07-2025 End: 03-07-2025 ambulatory YOANA SOLITARIO [facility] Start: 03-01-2025 End: 03-01-[address] Ambrosio Monroy DO Work Phone: [facility] Work Phone: Start: 03-01-2025 End: 03-01-2025 Departed Referred Tab Delvalle [facility] Start: 03-01-2025 Registered Referred Tab [place] Start: 03-01-2025 End: 03-01-2025 ambulatory Ambrosio Monroy Facility:[facility] Start: 02-19-2025 End: 03-08-2025 Telephone encounter Anmol Herbert MD Work Phone: [place] [facility] Comment on above: Hospital F/U Start: 02-16-2025 End: 02-22-2025 Evaluation and management of inpatient HOWARD GAMA Facility:[facility] Start: 02-15-2025 End: 02-15-[address] Ambrosio Monroy DO Work Phone: [facility] Work Phone: Start: 02-15-2025 End: 02-15-2025 Departed Referred Tab [place] Start: 02-15-2025 End: 02-15-2025 ambulatory Ambrosio Monroy Facility:[facility] Start: 01-31-2025 End: 01-31-2025 Patient encounter [...] Start: 01-31-2025 End: 01-31-2025 ambulatory MILAD GOODSON Facility:[facility] Start: 01-09-2025 End: 01-09-2025 Departed Referred Tab [place] Start: 01-09-2025 End: 01-09-2025 ambulatory Ambrosio Monroy Facility:[facility] Start: 01-04-2025 ambulatory KRISTINE Mendoza ity:[facility] Start: 01-04-2025 End: 01-04-2025 Subsequent hospital visit by physician [facility] (1.5t) Radiology Start: 12-07-2024 End: 12-07-[address] Ambrosio Monroy DO Work Phone: [facility] Work Phone: Start: 12-07-2024 End: 12-07-2024 Departed Referred Tab [employer] Start: 12-07-2024 Registered Referred Tab [place] [employer] Start: 12-07-2024 End: 12-07-2024 ambulatory Ambrosio Monroy Facility:[facility] Start: 11-30-2024 End: 11-30-[address] Ambrosio Monroy DO Work Phone: [facility] Work Phone: Start: 11-30-2024 End: 11-30-2024 Departed Referred Tab [place] [employer] Start: 11-30-2024 Registered Referred Tab Mayorga Gilmer [employer] Start: 11-29-2024 End: 11-30-[address] Ambrosio Monroy DO Work Phone: [facility] Work Phone: Start: 11-29-2024 End: 11-29-2024 Departed Referred Daisy Costello [place] [employer] Start: 11-29-2024 End: 11-29-2024 ambulatory Daisy MURO Facility:[facility] Start: 11-08-2024 End: 11-08-2024 Office outpatient visit 25 minutes Faisal Simeon DO [facility]: [facility] [place] [facility] Comment on above: Paraplegia (HCC) (Pr imary Dx); Neurogenic bladder; Gross hematuria; Neuropathic pain; Pressure injury of skin, unspecified injury stage, unspecified location Start: 11-08-2024 End: 11-08-2024 ambulatory FAISAL SIMEON Facility:[facility] Start: 10-25-2024 End: 11-20-2024 Telephone encounter Carlos Gillette MD Work Phone: [facility] Comment on above: Appointment Start: 10-11-2024 End: 01-10-2025 Transcribe Orders Kristine Howell CUPOLA TENDER HELPER - NETWORK OPERATIONS CENTER TECHNICIAN Work Phone: [facility] Central Scheduling Comment on above: Pressure ulcer of sa cral region, unspecified stage (Primary Dx) Start: 10-10-2024 End: 10-10-2024 Departed Referred Tab [place] Start: 10-10-2024 End: 10-10-2024 ambulatory Ambrosio Monroy Facility:[facility] Start: 10-03-2024 End: 10-03-2024 Departed Referred Tab [place] Start: 10-03-2024 End: 10-03-2024 ambulatory Ambrosio Monroy Facility:[facility] Start: 09-30-2024 End: 09-30-2024 Office outpatient visit 25 minutes Faisal Simeon DO Work Phone: [facility] Comment on above: Neurogenic bladder ( Primary Dx); Paraplegia (HCC); Urinary retention; Gross hematuria Start: 09-30-2024 ambulatory FAISAL SIMEON Facility:[facility] Start: 09-29-2024 End: 09-29-2024 Departed Referred Tab [place] Start: 09-29-2024 End: 09-29-2024 ambulatory Tab Kiah JINA Facility:[facility] Start: 09-20-2024 End: 09-20-2024 Departed Referred Tab [place] Start: 09-20-2024 End: 09-20-2024 ambulatory Ambrosio Monroy Facility:[facility] Start: 08-22-2024 End: 08-22-2024 Office outpatient new 45 minutes Giuliano Shultz DO Work Phone: [facility] Rheumatology Comment on above: Osteoporosis, unspec ified osteoporosis type, unspecified pathological fracture presence (Primary Dx) Start: 08-22-2024 End: 08-22-2024 ambulatory UNKNOWN PROVIDER Facility:[facility] Start: 08-12-2024 End: 08-12-2024 Telephone encounter Angelica Anne RN [facility] Rheumatology (Arthritis) Start: 08-01-2024 End: 08-01-2024 Office outpatient visit 25 minutes Sci [facility] PM&R Comment on above: Paraplegia (HCC) (Pr imary Dx); Neuropathic pain; Neurogenic bowel; Reflex neurogenic bladder Start: 08-01-2024 End: 08-01-2024 ambulatory UNKNOWN PROVIDER Facility:[facility] Start: 07-27-2024 End: 07-27-2024 Telephone encounter Angelica Anne RN [facility] Rheumatology (Arthritis) Start: 07-13-2024 End: 07-13-2024 Telephone encounter Angelica Anne RN [facility] Rheumatology (Arthritis) Start: 07-10-2024 End: 07-10-2024 ambulatory UNKNOWN PROVIDER Facility:[facility] Start: 07-10-2024 End: 07-10-2024 Subsequent hospital visit by physician Jennifer Ip/Op Mri 2 [facility] Radiology Comment on above: Sacral insufficiency fracture, initial encounter Start: 07-04-2024 End: 07-04-2024 ambulatory Ambrosio M Esterle Facility:[facility] Start: 07-01-2024 End: 07-01-2024 ambulatory OTIS MEJIA Facility:[facility] Start: 06-15-2024 End: 06-15-2024 Telephone encounter Carlos Gillette MD Work Phone: [facility] Comment on above: Reschedule Start: 06-15-2024 End: 06-15-2024 ambulatory Ambrosio M Esterle Facility:[facility] Start: 06-14-2024 End: 06-14-2024 Telephone encounter Vladimir Asher [facility] Start: 06-13-2024 End: 06-13-2024 Office outpatient new 60 minutes Sci Fellow Ivana [facility] PM&R Comment on above: Paraplegia (HCC) (Pr imary Dx); Reflex neurogenic bladder; Neuropathic pain; Neurogenic bowel Start: 06-13-2024 End: 06-13-2024 Office outpatient visit 25 minutes Sci Fellow Ivana [facility] PM&R Comment on above: Paraplegia (HCC) (Pr imary Dx); Reflex neurogenic bladder; Neuropathic pain; Neurogenic bowel; Urinary retention Start: 06-13-2024 End: 06-16-2024 ambulatory UNKNOWN PROVIDER Facility:[facility] Start: 05-30-2024 ambulatory Ambrosio M Esterle Facility :[facility] Start: 05-17-2024 End: 05-22-2024 Evaluation and management of inpatient Rodney R Guerrero DO Work Phone: [facility] DEMI 6W Comment on above: Positive blood cultu res (Primary Dx); Lumbar stenosis with neurogenic claudication; Osteoarthritis, unspecified osteoarthritis type, unspecified site; Other intervertebral disc displacement, lumbar region; Pressure injury of coccygeal region, stage 3 (HCC) Start: 05-13-2024 End: 05-13-2024 Telephone encounter Sarita Benoit CAR CLEANER [facility] Infectious Disease Comment on above: Labs Only Start: 05-11-2024 End: 05-15-2024 Office outpatient new 45 minutes Otis Mejia MD Work Phone: [facility] Orthopedic Spine Comment on above: Sacral insufficiency fracture, initial encounter (Primary Dx); Failed back surgical syndrome Start: 05-11-2024 End: 05-11-2024 Subsequent hospital visit by physician Jennifer Op Xray 2 [facility] Radiology Comment on above: Sacral insufficiency fracture, initial encounter Start: 05-11-2024 End: 05-15-2024 ambulatory UNKNOWN PROVIDER Facility:[facility] Start: 05-10-2024 End: 05-10-2024 Telephone encounter Delaney Nunn RN [facility] Line Comment on above: Update Start: 05-05-2024 End: 05-06-2024 Subsequent hospital visit by physician Dashawn Grimm MD Work Phone: [facility] Medical Surgical Unit MSU H5 Comment on above: Bladder calculus (Pr imary Dx); Bilateral ureteral calculi; Calculus of ureter Start: 05-04-2024 End: 05-06-2024 Telephone encounter Carlos Gillette MD Work Phone: [facility] Pain Management Comment on above: Reschedule Start: 04-15-2024 End: 04-15-2024 ambulatory Joe Hammer APRN - NETWORK OPERATIONS CENTER TECHNICIAN Work Phone: [facility] Urology Comment on above: Bilateral ureteral c alculi (Primary Dx); Bladder calculus Start: 04-15-2024 End: 04-25-2024 Telephone encounter Joe Sanchez NETWORK OPERATIONS CENTER TECHNICIAN Work Phone: [facility] Urology Comment on above: Surgery Scheduling Start: 04-14-2024 End: 04-20-2024 Evaluation and management of inpatient Ene Crawley MD Work Phone: [facility] PCU 2E Start: 04-06-2024 End: 04-28-2024 Telephone encounter Vaishali Placeway DO Work Phone: [facility] PM&R Start: 04-05-2024 End: 04-05-2024 ambulatory UNKNOWN PROVIDER Facility:[facility] Start: 04-05-2024 End: 04-05-2024 Subsequent hospital visit by physician Jennifer Ip/Op Mri 1 [facility] Radiology Comment on above: Paraplegia (HCC); History of lumbar fusion Start: 02-10-2024 End: 02-11-2024 ambulatory UNKNOWN PROVIDER Facility:[facility] Start: 02-10-2024 End: 02-26-2024 Office outpatient new 45 minutes Vaishali Placeway DO Work Phone: [facility] PM&R Comment on above: Paraplegia (HCC) (Pr imary Dx); History of lumbar fusion Start: 02-10-2024 ambulatory UNKNOWN PROVIDER Facili ty:[facility] Start: 01-29-2024 End: 01-29-2024 Office outpatient visit 25 minutes Carlos Gillette MD Work Phone: [facility] Pain Management Comment on above: Injury of lumbar spi nal cord, sequela (HCC) (Primary Dx); Neuropathic pain Start: 01-15-2024 Registered Referred [facility] Start: 01-07-2024 End: 01-07-2024 ambulatory [facility] Work Phone: Start: 01-07-2024 End: 01-07-2024 Departed Referred [facility] Start: 01-07-2024 Registered Referred [facility] Start: 01-04-2024 End: 01-04-2024 ambulatory [facility] Work Phone: Start: 01-04-2024 End: 01-04-2024 Departed Referred [facility] Start: 01-04-2024 Registered Referred [facility] Start: 12-31-2023 End: 12-31-2023 ambulatory [facility] Work Phone: Start: 12-31-2023 End: 12-31-2023 Departed Referred [facility] Start: 12-29-2023 End: 12-29-2023 Office outpatient new 45 minutes Carlos Gillette MD Work Phone: [facility] [employer] [facility] Pain Management Comment on above: Spinal cord injury, lumbar, without spinal bone injury, sequela (HCC) (Primary Dx); Neuropathic pain Start: 12-04-2023 End: 12-04-2023 ambulatory [facility] Work Phone: Start: 12-04-2023 End: 12-04-2023 Departed Referred [facility] Start: 10-25-2023 End: 10-25-2023 Departed Referred [facility] Start: 09-04-2023 Telephone encounter Carlos israel MD Work Phone: [facility] [employer] [facility] Pain Management Comment on above: Referral Start: 08-19-2023 Telephone encounter Carlos israel MD Work Phone: [facility] [employer] [facility] Pain Management Comment on above: Referral (Confirm Re ceipt of Referral for MOWER OPERATOR Appt Scheduling) Start: 08-10-2023 Registered Referred [facility] Start: 08-07-2023 Registered Referred [facility] Start: 08-06-2023 Telephone encounter Carlos israel MD Work Phone: [facility] [employer] [facility] Pain Management Comment on above: new patient appointm ent Start: 07-31-2023 End: 07-31-2023 ambulatory [facility] Work Phone: Start: 07-31-2023 End: 07-31-2023 Departed Referred [facility] Start: 06-29-2023 End: 06-29-2023 Departed Referred [facility] Start: 06-01-2023 End: 06-01-2023 ambulatory [facility] Work Phone: Start: 06-01-2023 End: 06-01-2023 Departed Referred [facility] Start: 05-23-2023 End: 05-23-2023 Emergency department patient visit Colt Klein DO Work Phone: [facility] ED Comment on above: Urinary tract infect ion associated with indwelling urethral catheter, initial encounter (HCC) (Primary Dx) Start: 05-04-2023 End: 05-04-2023 ambulatory [facility] Work Phone: Start: 05-04-2023 End: 05-04-2023 Departed Referred [facility] Start: 05-04-2023 Registered Referred [facility] Start: 03-25-2023 End: 03-25-2023 ambulatory [facility] Work Phone: Start: 03-25-2023 End: 03-25-2023 Departed Referred [facility] Start: 04-21-2022 ambulatory Cindi Cuellar PA-C Work Phone: [facility] [place] Start: 02-14-2022 End: 02-14-2022 Subsequent hospital visit by physician Mri 2 [facility] (I-Stat/1.5t) [facility] Comment on above: abscess Start: 06-11-2021 AUDIT Byron Whitlock DO Work Phone: [facility] Work Phone: Start: 10-24-2020 End: 10-25-2020 Patient encounter procedure OPAL LOPEZEN [facility] Start: 10-24-2020 End: 10-27-2020 Patient encounter procedure AMBROSIO MONROY [facility] Start: 10-24-2020 End: 10-25-2020 Subsequent hospital visit by physician Opal Vigil Work Phone: [facility]o Tele Comment on above: Muscle spasm (Primar y Dx); Diabetes mellitus without complication (HCC) Start: 06-14-2018 Patient encounter Meliton Brandt [facility] Start: 06-11-2018 End: 06-12-2018 Patient encounter JUAN MIGUEL ANN Facility:[id number] Start: 04-29-2018 Patient encounter Ambrosio Monroy [facility] Start: 08-05-2017 End: 08-06-2017 Ambulatory OPAL VIGIL Facility:[facility] Start: 08-03-2017 Ambulatory OPAL VIGIL [facility] Start: 05-27-2017 End: 05-28-2017 Ambulatory ELLIOT TORREZ Facility:[facility] Procedures Date Procedure Procedure Detail Performing [...] metabolic panel calcium total Mary Alice Aguilera CUPOLA TENDER HELPER - NETWORK OPERATIONS CENTER TECHNICIAN Work Phone: Start: 04-26-2025 Glucose quantitative [...] 04-25-2025 Basic metabolic panel calcium total Kerwin Coffee DO Work Phone: Start: 04-24-2025 Glucose quantitative blood xcpt reagent strip Kerwin Radhames DO Work Phone: Start: 04-24-2025 Glucose quantitative blood xcpt reagent strip Kerwin Coffee DO Work Phone: Start: 04-24-2025 Glucose quantitative blood xcpt reagent strip Kerwin Coffee DO Work Phone: Start: 04-24-2025 End: 04-24-2025 Glucose quantitative blood xcpt reagent strip Kerwin Radhames DO Work Phone: Start: 04-24-2025 Decalcification procedure Kaela sevilla MD Work Phone: Start: 04-24-2025 End: 04-24-2025 Culture bacterial any source anaerobic iso&id Kaela Durand MD Work Phone: Start: 04-24-2025 End: 04-24-2025 Debridement muscle & fascia 20 sq cm/< Kaela Durand MD Work Phone: Start: 04-24-2025 Basic metabolic panel calcium total Kerwin Coffee DO Work Phone: Start: 04-24-2025 Drug screen quantitative vancomycin Alberto Boogie MOWER OPERATOR Work Phone: Start: 04-23-2025 Glucose quantitative blood xcpt reagent strip Kerwin Radhames DO Work Phone: Start: 04-23-2025 Glucose quantitative blood xcpt reagent strip Kerwin Coffee DO Work Phone: Start: 04-23-2025 Glucose quantitative blood xcpt reagent strip Kerwin Radhames DO Work Phone: Start: 04-23-2025 Glucose quantitative blood xcpt reagent strip Kerwin Radhames DO Work Phone: Start: 04-23-2025 Basic metabolic panel calcium total Kerwin Coffee DO Work Phone: Start: 04-22-2025 Glucose quantitative blood xcpt reagent strip Kerwin Coffee DO Work Phone: Start: 04-22-2025 Glucose quantitative blood xcpt reagent strip Kerwin Coffee DO Work Phone: Start: 04-22-2025 Glucose quantitative blood xcpt reagent strip Kerwin Coffee DO Work Phone: Start: 04-22-2025 Glucose quantitative blood xcpt reagent strip Kerwin Coffee DO Work Phone: Start: 04-22-2025 Drug screen quantitative vancomycin Alberto Boogie MOWER OPERATOR Work Phone: Start: 04-22-2025 Ct pelvis w/contrast [...] Start: 05-18-2024 Basic metabolic panel calcium total Deondrebalaji Khanh Concepcion MD Work Phone: Start: 05-18-2024 Culture bacterial quanttative colony count urine Terri Franco Blanco PA-C Work Phone: Start: 05-18-2024 Urinalysis complete panel - Urine Terri Franco Blanco PA-C Work Phone: Start: 05-17-2024 Culture bacterial quanttative colony count urine Terri Franco Blanco PA-C Work Phone: Start: 05-17-2024 Urinalysis complete panel - Urine Terri Franco Blanco PA-C Work Phone: Start: 05-17-2024 End: 05-17-2024 Bacteria identified in Blood by Culture Terri Michelle Blanco PA-C Work Phone: Start: 05-17-2024 Basic metabolic panel calcium total Terri Franco Blanco PA-C Work Phone: Start: 05-11-2024 Radex entir thrc lmbr crv sac spi w/skull 2/3 vw Otis Mejia MD Work Phone: Start: 05-11-2024 Radex sacrum & coccyx minimum 2 views Berna Johnson PA-C Work Phone: Start: 05-06-2024 Glucose quantitative blood xcpt reagent strip Dashawn Grimm MD Work Phone: Start: 05-06-2024 End: 05-06-2024 Basic metabolic panel calcium total Kaitlin Granados MD Work Phone: Start: 05-06-2024 Glucose quantitative blood xcpt reagent strip Dashawn Grimm MD Work Phone: Start: 05-05-2024 Glucose quantitative blood xcpt reagent strip Dashawn Grimm MD Work Phone: Start: 05-05-2024 FL GUIDANCE OR USE ONLY - NON-RESULTABLE Dashawn Grimm MD Work Phone: Start: 05-05-2024 Cul bact xcpt urine blood/stool aerobic isol Dashawn Grimm MD Work Phone: Start: 05-05-2024 End: 05-05-2024 Cysto w/insert ureteral stent Dashawn Grimm MD Work Phone: Start: 05-05-2024 End: 05-05-2024 Cysto w/ureteroscopy w/lithotripsy Dashawn Grimm MD Work Phone: Start: 05-05-2024 End: 05-05-2024 Cystourethroscopy Dashawn Grimm MD Work Phone: Start: 05-05-2024 End: 05-05-2024 Litholapaxy comp/lg > 2.5 cm Dashawn Grimm MD Work Phone: Start: 05-05-2024 Glucose quantitative blood xcpt reagent strip Dashawn Grimm MD Work Phone: Start: 05-05-2024 Glucose quantitative blood xcpt reagent strip Dashawn Grimm MD Work Phone: Start: 04-20-2024 Glucose quantitative [...] Manual Differential panel - Blood Brad Mujica APRN - [facility] Work Phone: Start: 04-15-2024 Glucose quantitative blood [...] Manual Differential panel - Blood Brad Mujica CUPOLA TENDER HELPER - [facility] Work Phone: Start: 04-15-2024 Drug screen quantitative vancomycin Orquidea Marti MD Work Phone: Start: 04-15-2024 Culture bacterial quanttative colony count urine Brad Mujica CUPOLA TENDER HELPER [facility] Work Phone: Start: 04-14-2024 End: 04-14-2024 Blood count complete auto&auto difrntl wbc Orquidea Marti MD Work Phone: Start: 04-14-2024 Manual Differential panel - Blood Orquidea Marti MD Work Phone: Start: 04-14-2024 X-ray urinary tract exam with contrast material Dashawn Grimm MD Work Phone: Start: 04-14-2024 End: 04-14-2024 Glucose quantitative blood xcpt reagent strip Orquidea Marti MD Work Phone: Start: 04-14-2024 End: 04-14-2024 Cysto w/insert ureteral stent Dashawn Grimm MD Work Phone: Start: 04-14-2024 ABO and [...] panel - Serum or Plasma Joe Hammer CUPOLA TENDER HELPER - NETWORK OPER[employer] CENTER TECHNICIAN Work Phone: Start: 09-06-2021 Colonoscopy Faisal Simeon DO Work Phone: Start: 10-25-2020 Gluc bld gluc mntr dev cleared fda spec home use Unknown Provider Result Start: 10-25-2020 Gluc bld gluc mntr dev cleared fda spec home use Unknown Provider Result Start: 10-25-2020 Basic metabolic panel calcium total Orlando Ivory Work Phone: Start: 10-25-2020 Blood count complete auto&auto difrntl wbc Orlando Franco Sedar Work Phone: Start: 10-25-2020 Hemoglobin glycosylated a1c Orlando Ivory Work Phone: Start: 10-24-2020 Gluc bld gluc [...] vaccine (adult) (1 - 1-dose 75+ series) [facility] Start: 09-06-2031 Screening for malignant neoplasm of colon [facility] Start: 01-23-2027 Lipid panel Cholesterol [facility] Start: 04-27-2026 Diabetes: Estimated Glomerular Filtration Rate for Kidney Health Diabetes: Estimated Glomerular Filtration Rate for Kidney Health [facility] Start: 04-21-2026 Hemoglobin A1c measurement Diabetes: Hemoglobin A1C [facility] Start: 02-16-2026 Screening for malignant neoplasm of lung Lung Cancer Screening [facility] Start: 06-05-2025 Influenza vaccination [facility] Start: 06-02-2025 End: 06-02-2025 Patient encounter procedure 06/02/2025 11:00 AM EDT Office Visit [facility] Infectious Disease - [place] [address] [place] [address] Savage Alvarez MD [address] [place], [place] [id number] [facility] Infectious Disease - [place] Start: 05-22-2025 Diabetes: Estimated Glomerular Filtration Rate for Kidney Health Diabetes: Estimated Glomerular Filtration Rate for Kidney Health [facility] Start: 05-06-2025 Diabetes: Estimated Glomerular Filtration Rate for Kidney Health Diabetes: Estimated Glomerular Filtration Rate for Kidney Health [facility] Start: 04-27-2025 Diabetes: Estimated Glomerular Filtration Rate for Kidney Health Diabetes: Estimated Glomerular Filtration Rate for Kidney Health [facility] Start: 04-20-2025 Diabetes: Estimated Glomerular Filtration Rate for Kidney Health Diabetes: Estimated Glomerular Filtration Rate for Kidney Health [facility] Start: 04-20-2025 [facility] Start: 04-15-2025 Diabetes: Estimated Glomerular Filtration Rate for Kidney Health Diabetes: Estimated Glomerular Filtration Rate for Kidney Health [facility] Start: 04-15-2025 Hemoglobin A1c measurement [facility] Start: 04-04-2025 Hemoglobin A1c measurement Hemoglobin A1C [facility] Start: 03-20-2025 End: 03-20-2025 Admission to same day surgery center 03/20/2025 10:00 AM EDT - 03/20/2025 11:30 AM EDT Surgery [facility] [address] [place] [address] Anmol Herbert MD [address] [place] [address] CYSTOSCOPY, RETROPYELOGRAM [facility] Comment on above: CYSTOSCOPY, RETROPYELOGRAM Start: 03-20-2025 End: 03-20-2025 Cysto bladder w/ureteral catheterization [facility] Start: 03-20-2025 End: 03-20-2025 Cysto w/insert ureteral stent [facility] Start: 03-20-2025 End: 03-20-2025 Cysto w/simple removal stone & stent [facility] OR Start: 03-20-2025 Subsequent hospital visit by physician 03/20/2025 10:00 AM EDT Hospital Encounter [facility] [address] [place] [address] Anmol Herbert MD [address] [place] [address] Other hydronephrosis [N13.39] [facility] Comment on above: Other hydronephrosis [N13.39] Start: 03-14-2025 End: 03-14-2025 Patient encounter procedure 03/14/2025 1:50 PM EDT Office Visit Plastic Surgery [address] [place] [address] Milad Goodson MD [address] [address] [place] sacrum & left ischium Plastic Surgery Comment on above: [place] sacrum & left ischium Start: 01-31-2025 End: 05-02-2025 C reactive protein [Mass/volume] in Serum or Plasma C-REACTIVE PROTEIN Lab Routine Chronic osteomyelitis (HCC) Expected: 01/31/2025, Expires: 05/02/2025 [facility] Comment on above: Expected: 01/31/2025, Expires: Start: 01-31-2025 End: 05-02-2025 Erythrocyte sedimentation rate SEDIMENTATION RATE, WESTERGREN Lab Routine Chronic osteomyelitis (HCC) Expected: 01/31/2025, Expires: 05/02/2025 [facility] Work Phone: Comment on above: Expected: 01/31/2025, Expires: Start: 01-31-2025 End: 05-02-2025 Prealbumin [Mass/volume] in Serum or Plasma PREALBUMIN Lab Routine Chronic osteomyelitis (HCC) Expected: 01/31/2025, Expires: 05/02/2025 [facility] Comment on above: Expected: 01/31/2025, Expires: Start: 11-08-2024 End: 11-08-2024 Telemedicine consultation with patient 11/08/2024 1:30 PM EST [facility] [place] [facility] [address] [place] [address] Faisal Simeon, [address] [place] [address] [facility] [place] [facility] Start: 11-05-2024 Welcome to Medicare Visit (G0402) Welcome to Medicare Visit (G0402) [facility] Start: 10-16-2024 Hemoglobin A1c measurement HbA1C [facility] Start: 10-11-2024 End: 10-11-2025 MR Pelvis WO and W contrast IV MR pelvis w and wo contrast Imaging Routine Pressure ulcer of sacral region, unspecified stage Expected: 10/11/2024, Expires: 10/11/2025 [facility] Work Phone: Comment on above: Expected: 10/11/2024, Expires: Start: 10-05-2024 Medicare Advantage Annual Wellness Visit Medicare Advantage Annual Wellness Visit [facility] Start: 09-30-2024 End: 09-30-2025 CT Abdomen and Pelvis WO contrast CT RENAL STONE Imaging Routine Gross hematuria Expected: 09/30/2024, Expires: 09/30/2025 [facility] Work Phone: Comment on above: Expected: 09/30/2024, Expires: Start: 09-30-2024 End: 09-30-2024 Patient encounter procedure 09/30/2024 1:00 PM EST Procedure Visit [facility] [address] [place] [address] Faisal Simeon DO [address] [place] [address] [facility] Start: 09-09-2024 End: 09-09-2024 Patient encounter procedure 09/09/2024 2:00 PM EST Procedure Visit [facility] [address] [place] [address] Faisal Simeon DO [address] [place] [address] [facility] Start: 08-22-2024 End: 08-22-2024 Telemedicine consultation with patient 08/22/2024 8:20 AM EST Telemedicine [facility] [address] [facility] [address] [place] [address] Giuliano Shultz DO [address] [place] [address] [facility] Start: 2024 End: 2024 Patient encounter procedure 2024 1:30 PM EDT Office Visit [facility] [address] [place] [place] [phone] Carlos Gillette MD [address] [facility] [address] [place] [id number] [facility] Start: 08-01-2024 End: 08-01-2024 Telemedicine consultation with patient 08/01/2024 9:00 AM EDT Telemedicine [facility] [address] [place] [address] [facility] Start: 07-10-2024 End: 07-10-2024 Patient encounter procedure [facility] Radiology Start: 07-05-2024 Influenza vaccination Influenza Vaccine (#1) [facility] Start: 07-01-2024 End: 07-01-2024 Professional / ancillary services management 07/01/2024 11:00 AM EDT Ancillary Procedure [facility] [address] [place] [address] [facility] Start: 06-14-2024 End: 06-14-2024 Patient encounter procedure 06/14/2024 8:30 AM EDT Office Visit [facility] [address] [place] [phone] Carlos Gillette MD [address] [place] [address] [facility] Start: 06-13-2024 End: 06-13-2024 Patient encounter procedure 06/13/2024 11:00 AM EDT Office Visit [facility] [address] [place] [address] [facility] Start: 06-13-2024 End: 06-13-2024 Professional / ancillary services management 06/13/2024 9:00 AM EDT Ancillary Procedure [facility] [address] [place] [address] [facility] Start: 06-05-2024 COVID-19 Vaccine ( season) COVID-19 Vaccine ( season) [facility] Start: 06-05-2024 COVID-19 Vaccine ( season) COVID-19 Vaccine ( season) [facility] Start: 06-05-2024 Influenza vaccination [facility] [employer] Start: 06-05-2024 [facility] [employer] Start: 05-11-2024 End: 05-11-2025 DXA Skeletal system Views for bone density BD BONE DENSITY SURVEY Imaging Routine Sacral insufficiency fracture, initial encounter Expected: 05/11/2024, Expires: 05/11/2025 [facility] [employer] Work Phone: Comment on above: Expected: 05/11/2024, Expires: Start: 05-11-2024 End: 05-11-2025 MR Cervical spine WO contrast MR C-SPINE W/O Imaging Routine Sacral insufficiency fracture, initial encounter Expected: 05/11/2024, Expires: 05/11/2025 [facility] Comment on above: Expected: 05/11/2024, Expires: Start: 05-11-2024 End: 05-11-2025 MR Thoracic spine WO contrast MR T-SPINE W/O Imaging Routine Sacral insufficiency fracture, initial encounter Expected: 05/11/2024, Expires: 05/11/[facility] Comment on above: Expected: 05/11/2024, Expires: Start: 05-11-2024 End: 05-11-2024 Patient encounter procedure [facility] Orthopedic Spine Comment on above: Sacral insufficiency fracture, initial e ncounter (Primary Dx) Start: 05-06-2024 End: 04-20-2025 Bacteria identified in Blood by Culture [facility] Work Phone: Start: 05-05-2024 End: 05-05-2024 Admission to same day surgery center 05/05/2024 12:30 PM EDT - 05/05/2024 2:30 PM EDT Surgery [facility] [address] [place] [address] Dashawn Grimm MD [address] [place] [address] CYSTOSCOPY [76608 (CPT )] [facility] Comment on above: CYSTOSCOPY [58767 (CPT )] Start: 05-05-2024 End: 05-05-2024 ambulatory [facility] Start: 05-05-2024 End: 05-05-2024 Anesthesia consultation 05/05/2024 12:30 PM EDT Anesthesia Event [facility] [address] [place] [phone] Emil Waleska, [employer] TECHNICIAN [address] [place] [address] [facility] Start: 05-05-2024 End: 05-05-2024 Cysto w/insert ureteral stent [facility] Start: 05-05-2024 End: 05-05-2024 Cysto w/ureteroscopy w/lithotripsy [facility] Start: 05-05-2024 End: 05-05-2024 Cystourethroscopy [facility] Start: 05-05-2024 End: 05-05-2024 Litholapaxy comp/lg > 2.5 cm [facility] Start: 05-05-2024 Subsequent hospital visit by physician 05/05/2024 12:30 PM EDT Hospital Encounter [facility] [address] [place] [phone] Dashawn Grimm MD [address] [phone] [facility] Start: 04-27-2024 End: 04-27-2024 Admission to establishment 04/27/2024 2:00 PM EDT Pre-Admission Testing [facility] Pre-Admit Testing [address] [place] [address] Dashawn Grimm MD [address] [address] [facility] Start: 04-27-2024 End: 04-27-2024 ambulatory [facility] Pre-Admit Testin g Start: 04-21-2024 End: 04-21-2024 Patient encounter procedure 04/21/2024 8:45 AM EDT Office Visit [facility] [address] [place] [phone] Carlos Gillette MD [address] [facility] [place] [address] [facility] Start: 04-05-2024 End: 04-05-2024 Patient encounter procedure 04/05/2024 2:30 PM EDT Appointment [facility] Radiology [address] [place], [place] [phone] [facility] Start: 04-04-2024 Welcome to Medicare Visit (G0402) Welcome to Medicare Visit (G0402) [facility] Start: 03-30-2024 End: 03-30-2024 Patient encounter procedure 03/30/2024 4:00 PM EDT Office Visit [facility] [address] [place] [phone] Carlos Gillette MD [address] [place] [address] [facility] Start: 02-10-2024 End: 02-09-2025 MR Lumbar spine WO and W contrast IV MR L-SPINE W/+W/O Imaging Routine Paraplegia (HCC) History of lumbar fusion Expected: 02/10/2024, Expires: 02/09/2025 [facility] [employer] [facility] Work Phone: Comment on above: Expected: 02/10/2024, Expires: Start: 12-29-2023 End: 12-29-2023 Patient encounter procedure 12/29/2023 2:45 PM EDT Office Visit [facility] [address] [place] [phone] Carlos Gillette MD [address] [facility] [place] [place] [id number] [facility] Start: 06-05-2023 COVID-19 Vaccine ( season) COVID-19 Vaccine ( season) [facility] Start: 06-05-2023 Influenza vaccination Influenza Vaccine (#1) [facility] Start: 06-05-2023 [facility] Start: 01-23-2023 Hemoglobin A1c measurement Diabetes: Hemoglobin A1C [facility] Start: 01-23-2023 Hepatitis B surface antibody level LDL CHOLESTEROL [facility] Start: 01-23-2023 Lipid panel Lipid Panel [facility] Start: 12-27-2022 Diabetes: Urine Albumin-Creatinine Ratio for Kidney Health Diabetes: Urine Albumin-Creatinine Ratio for Kidney Health [facility] Start: 07-25-2022 Hemoglobin A1c/Hemoglobin.total in Blood HBA1C [facility] Start: 06-05-2022 Influenza vaccination [facility] Start: 10-25-2021 HbA1c (Bld) [Mass fraction] A1C test (Diabetic or Prediabetic) [place] Start: 10-25-2021 Hemoglobin A1c measurement Diabetes: Hemoglobin A1C [facility] Start: 2021 Hepatitis B (HBV) Vaccine (optional start 60+ years) Hepatitis B (HBV) Vaccine (optional start 60+ years) [facility] Start: 2021 Hepatitis B Vaccines (1 of 3 - Risk 3-dose series) Hepatitis B Vaccines (1 of 3 - Risk 3-dose series) [facility] Start: 2021 RSV Immunization aged 60 or older (1 - 1-dose 60+ series) RSV Immunization aged 60 or older (1 - 1-dose 60+ series) [facility] Start: 2021 RSV Immunization for Adults (1 - Risk 60-74 years 1-dose series) RSV Immunization for Adults (1 - Risk 60-74 years 1-dose series) [facility] Start: 2021 RSV Vaccine (1 - Risk 60-74 years 1-dose series) RSV Vaccine (1 - Risk 60-74 years 1-dose series) [facility] Start: 2021 RSV vaccine (optional 60+ years) RSV vaccine (optional 60+ years) [facility] Start: 2021 [facility] Start: 11-20-2020 End: 11-20-2020 Office Visit 11/20/2020 Office Visit Opal Tamez MD [address] [address] [phone] [facility] Start: 11-06-2020 End: 11-06-2020 Office Visit [facility] Start: 06-05-2020 Influenza vaccination Flu vaccine (#1) [place] Start: 01-05-2018 Lipid panel Lipid screen [place] Start: 2016 PROSTATE CANCER SCREENING DISCUSSION PROSTATE CANCER SCREENING DISCUSSION [facility] Start: 2016 Prostate specific antigen measurement Prostate Cancer Screening Discussion [facility] Start: 2011 Pneumococcal vaccination Pneumococcal Vaccine(s) (50+ yrs) (1 of 1 - PCV) [facility] Start: 2011 Screening for malignant neoplasm of colon Colon cancer screen colonoscopy [place] Start: 2011 Screening for malignant neoplasm of lung Lung Cancer Screening [facility] Start: 2011 Shingles (RZV) Vaccine (1 of 2) Shingles (RZV) Vaccine (1 of 2) [facility] Start: 2011 Shingles Vaccine (1 of 2) Shingles Vaccine (1 of 2) [place] Start: 2011 SHINGRIX VACCINE (1 of 2) SHINGRIX VACCINE (1 of 2) [facility] Start: 2011 Zoster Vaccines (1 of 2) Zoster Vaccines (1 of 2) [facility] Start: 2011 [facility] Start: 2006 COLOGUARD (FIT-DNA) COLOGUARD (FIT-DNA) [facility] Start: 2006 Colonoscopy COLONOSCOPY [facility] Start: 2006 COLORECTAL CANCER SCREENING COLORECTAL CANCER SCREENING [facility] Start: [address] COLONOGRAPHY [facility] Start: 2006 FECAL OCCULT BLOOD FECAL OCCULT BLOOD [facility] Start: 2006 Prostate specific antigen measurement Prostate Cancer Screening Discussion [facility] Start: 2006 Screening for malignant neoplasm of colon [facility] Start: 2006 SIGMOIDOSCOPY SIGMOIDOSCOPY [facility] Start: 1996 Lipid panel Cholesterol [facility] Start: 1980 DTaP/Tdap/Td vaccine (1 - Tdap) DTaP/Tdap/Td vaccine (1 - Tdap) [place] Start: 1980 DTaP/Tdap/Td Vaccines (1 - Tdap) DTaP/Tdap/Td Vaccines (1 - Tdap) [facility] Start: 1980 Hepatitis A (HAV) Vaccine (optional start 19+ years) Hepatitis A (HAV) Vaccine (optional start 19+ years) [facility] Start: 1980 Hepatitis B vaccine (1 of 3 - Risk 3-dose series) Hepatitis B vaccine (1 of 3 - Risk 3-dose series) [place] Start: 1980 Pneumococcal Vaccine: 50+ (1 of 2 - PCV) Pneumococcal Vaccine: 50+ (1 of 2 - PCV) [facility] Start: 1980 Pneumococcal Vaccine: 50+ Years (1 of 2 - PCV) Pneumococcal Vaccine: 50+ Years (1 of 2 - PCV) [facility] Start: 1980 Urine microalbumin profile [facility] Start: 1980 [facility] Start: 1979 ANNUAL PCP TEAM CHRONIC DISEASE VISIT ANNUAL PCP TEAM CHRONIC DISEASE VISIT [facility] Start: 1979 Anxiety Screening Anxiety Screening [facility] Start: 1979 Depression Screening Depression Screening [facility] Start: 1979 Diabetes: Urine Albumin-Creatinine Ratio for Kidney Health Diabetes: Urine Albumin-Creatinine Ratio for Kidney Health [facility] Start: 1979 Diabetic microalbuminuria test Diabetic microalbuminuria test [place] Start: 1979 Hepatitis C screening [facility] Start: 1979 Tetanus + diphtheria + acellular pertussis vaccine (product) Tdap Booster [facility] Start: 1979 [facility] Start: 1977 ONE PNEUMOVAX PRIOR TO AGE 65 ONE PNEUMOVAX PRIOR TO AGE 65 [facility] Start: 1976 HIV screening [facility] Start: 1973 Adult depression screening assessment DEPRESSION SCREENING [facility] Start: 1973 Depression Monitoring Depression Monitoring [facility] Start: 1973 [facility] Start: 1971 3 comp foot exam completed DIABETIC FOOT EXAM [facility] Start: 1971 Diabetic foot examination [facility] Start: 1971 Diabetic retinal exam Diabetic retinal exam [place], [place] Start: 1971 Glaucoma screening [facility] Start: 1971 Hepatitis B screening URINE ALBUMIN:CREATININE RATIO [facility] Start: 1971 Hepatitis C antibody, confirmatory test DILATED RETINAL EXAM [facility] Start: 1971 Preventive dental service [facility] Start: 1967 PNEUMOCOCCAL (1 - PCV) PNEUMOCOCCAL (1 - PCV) [facility] Start: 1967 Pneumococcal 0-64 years Vaccine (1 of 1 - PPSV23) Pneumococcal 0-64 years Vaccine (1 of 1 - PPSV23) [place] Start: 1967 Pneumococcal Vaccine: Pediatrics (0 to 5 Years) and At-Risk Patients (6 to 64 Years) (1 - PCV) Pneumococcal Vaccine: Pediatrics (0 to 5 Years) and At-Risk Patients (6 to 64 Years) (1 - PCV) [facility] Start: 1967 Pneumococcal Vaccine: Pediatrics (0 to 5 Years) and At-Risk Patients (6 to 64 Years) (1 of 2 - PCV) Pneumococcal Vaccine: Pediatrics (0 to 5 Years) and At-Risk Patients (6 to 64 Years) (1 of 2 - PCV) [facility] Start: 1967 [facility] Start: 1966 COVID-19 VACCINE (#1) COVID-19 VACCINE (#1) [facility] Start: 1962 MMR Vaccines (1 of 1 - Standard series) MMR Vaccines (1 of 1 - Standard series) [facility] Start: 1962 [facility] Start: 02-01-1962 COVID-19 VACCINE (#1) COVID-19 VACCINE (#1) [facility] Start: 1961 Hepatitis C screening Hepatitis C screen [place], [place] Start: 1961 HIV screening [facility] Start: 1961 Lipid panel [facility] Start: 1961 Medicare Annual Wellness (AWV) Medicare Annual Wellness (AWV) [facility] Start: 1961 Screening for malignant neoplasm of colon [facility] Start: 1961 [facility] End: 08-22-2025 25 hydroxy includes fractions if performed VITAMIN D, 25-HYDROXY Lab Routine Osteoporosis, unspecified osteoporosis type, unspecified pathological fracture presence 1 Occurrences starting 08/22/2024 until 08/22/2025 [facility] Comment on above: 1 Occurrences starting 08/22/2024 until 08/22/2025 Aerobic and Anaerobi c Culture with Stain [facility] Work Phone: Comment on above: Release Upon Ordering for 1 Occurrences starting 05/05/2024 Aerobic and Anaerobi c Culture with Stain [facility] Work Phone: Comment on above: Release Upon Ordering for 1 Occurrences starting 04/24/2025 End: 08-22-2025 Assay of parathormone PARATHYROID HORMONE INTACT Lab Routine Osteoporosis, unspecified osteoporosis type, unspecified pathological fracture presence 1 Occurrences starting 08/22/2024 until 08/22/2025 [facility] Comment on above: 1 Occurrences starting 08/22/2024 until 08/22/2025 Bacteria identified in Blood by Culture [employer] Work Phone: End: 04-14-2024 Bacteria identified in Lower respiratory specimen by Aerobe culture [facility] Bacteria identified in Unspecified specimen by Aerobe culture Culture, Aerobic Bacteria with Gram Stain Microbiology Routine Calculus of ureter 05/05/2024 4:14 PM EDT [facility] End: 05-05-2024 Bacteria identified in Unspecified specimen by Anaerobe culture [facility] [employer] Comment on above: Once for 1 Occurrences starting 05/05/20 24 until 05/05/2024 Bacteria identified in Unspecified specimen by Anaerobe culture [facility] End: 05-23-2023 Bacteria identified in Urine by Culture [employer] Work Phone: Comment on above: Once (Lab) for 1 Occurrences starting until 05/23/2023 Basic metabolic 2000 panel Basic Metabolic Panel Lab Routine Daily until discontinued starting 10/25/2020, 1 completed [facility] [place] Comment on above: Daily until discontinued starting 2020, 1 completed End: 08-22-2025 Basic metabolic 2000 panel - Serum or Plasma BASIC METABOLIC PANEL Lab Routine Osteoporosis, unspecified osteoporosis type, unspecified pathological fracture presence 1 Occurrences starting 08/22/2024 until 08/22/2025 [employer] Work Phone: Comment on above: 1 Occurrences starting 08/22/2024 until 08/22/2025 Calculi Analysis(Stone) [employer] Comment on above: Release Upon Ordering for 1 Occurrences starting 05/05/2024 CBC Auto Differential CBC Auto D ifferential Lab Routine Daily until discontinued starting 10/25/2020, 1 completed [employer] [email or web address] Comment on above: Daily until discontinued starting 2020, 1 completed End: 04-14-2024 Fungus identified in Unspecified specimen by Culture [facility] Work Phone: Fungus identified in Unspecified specimen by Culture Fungal Culture Microbiology Routine Calculus of ureter 05/05/2024 4:14 PM EDT [facility] End: 04-14-2024 Lactic acid with reflex [facility] [employer] Work Phone: Oxygen therapy [[facility] Data Set] Initiate Oxygen Therapy Protocol Respiratory Care Routine Daily until discontinued starting 10/24/2020 [email or web address] Comment on above: Daily until discontinued starting 2020 POCT glucose Workboard CASSIE Banks Comment on above: 4X Daily (AC & HS) until discontinued st arting 10/25/2020 As Needed until disc ontinued starting 10/24/2020 End: 08-22-2025 Protein electrophoretic fractj&quantj serum ELECTROPHORESIS, SERUM PROTEIN Lab Routine Osteoporosis, unspecified osteoporosis type, unspecified pathological fracture presence 1 Occurrences starting 08/22/2024 until 08/22/2025 [facility] Comment on above: 1 Occurrences starting 08/22/2024 until 08/22/2025 Spirometry panel Incentive negin metry RT Respiratory Care Routine Every 2hr while awake until discontinued starting 10/24/2020 [facility] Comment on above: Every 2hr while awake until discontinued starting 10/24/2020 End: 04-14-2024 [facility] Immunizations Immunization Date Immunization Notes Care Provider Nessa peñaloza 04-15-2024 Hemoglobin A1C Mh 2 [facility] 04-04-2024 Hemoglobin A1C Mh 1 [facility] Payers Date Payer Category Payer Medicare (Managed Care) 1.2. [id number] 2024 Medicare HMO CARESOMATTHEWSilas [employer] MEDICARE [id number] 2024 Medicare [id number] 2024 Self-pay [id number] 2024 Medicare [id number]. 1.13.680.2. [id number] 2024 Medicare FFS MEDICARE [id number] 2024 Unknown [id number] 2024 Unknown [id number] 2022 Medicaid [id number]. 1.13.680.2. [id number] 2021 Medicaid [facility] MEDICAID [facility] PLAN MEDICAID [id number] 2021-Present [phone] [address] [place] [address] Medicaid [id number]. [id number] 2016 Unknown [id number] 2008 Unknown 1960 Unknown [id number] 2.16.840.1.089406.3.579.2. 182 1960 Unknown [id number] 2.16.840.1.699469.3.579.2. 182 1961 Unknown [id number] 2.16.840.1.408249.3.579.2. 732 1961 Unknown [id number] 2.16.840.1.609401.3.579.2. 732 1961 Unknown [id number] 2.16.840.1.850407.3.579.2. 732 1961 Unknown [id number] 2.16.840.1.116976.3.579.2. 732 1961 Unknown [id number] 2.16.840.1.870215.3.579.2. 732 1961 Unknown [id number] 2.16.840.1.202781.3.579.2. 732 1961 Unknown [id number] 2.16.840.1.623351.3.579.2. 732 1961 Unknown [id number] 2.16.840.1.974427.3.579.2. 732 1961 Unknown [id number] 2.16.840.1.832127.3.579.2. 732 1961 Unknown [id number] 2.16.840.1.151810.3.579.2. 732 1961 Unknown [id number] 2.16.840.1.942385.3.579.2. 732 1961 Unknown [id number] 2.16.840.1.520211.3.579.2. 732 Unknown [id number] 2..840.1.990216.3.579.2. 462 Unknown [id number] 2.16.840.1.625107.3.579.2. 462 Unknown [id number] 2.16.840.1.854585.3.579.2. 462 Unknown [id number] 2.840.1.267693.3.579.2. 462 Unknown [id number] 2.840.1.253822.3.579.2. 462 Unknown [id number] 2.840.1.188577.3.579.2. 462 Unknown [id number] 2.840.1.857935.3.579.2. 462 Unknown [id number] 2.840.1.479041.3.579.2. 462 Unknown [id number] 2.840.1.227062.3.579.2. 462 Unknown [id number] 2.840.1.557434.3.579.2. 462 Unknown [id number] 2.840.1.648799.3.579.2. 462 Unknown [id number] 2.840.1.052267.3.579.2. 462 Unknown [id number] .840.1.632971.3.579.2. 462 Unknown [id number] .840.1.629452.3.579.2. 462 Unknown [id number] 2.840.1.029111.3.579.2. 462 Unknown [id number] 2.840.1.783047.3.579.2. 462 Unknown [id number] 2.840.1.973570.3.579.2. 462 Unknown [id number] 2.840.1.264225.3.579.2. 462 Unknown [id number] 2..840.1.528286.3.579.2. 462 Unknown [id number] 2..840.1.674320.3.579.2. 462 Unknown [id number] 2..840.1.888242.3.579.2. 462 Social History Date Type Detail Facility Start: 10-05-1977 End: 04-27-2024 Tobacco smoking status NHIS Current every day smoker [facility] Start: 10-24-2020 End: 04-27-2024 Tobacco use and exposure Never used [place] Start: 10-24-2020 End: 04-24-2025 Alcohol intake Current non-drinker of alcohol (finding) [place] Start: 10-15-2020 History SDOH Food Worry 1 [place] Start: 10-15-2020 History SDOH Transport Med 2 [place] Start: 12-21-2016 Alcohol Comment occ [place] Start: 1960 Sex Assigned At Not on file [place] Start: 05-13-2023 End: 05-23-2023 Exposure to SARS-CoV-2 (event) Not sure [place] Start: 08-09-2013 End: 04-22-2025 Current every day smoker Current every day smoker [facility] Start: 10-05-1977 History of tobacco use Cigarette Smoker [facility] Start: 1960 Sex Assigned At Male [facility] Start: 01-27-2022 End: 02-06-2022 Exposure to SARS-CoV-2 (event) Unable to assess [facility] Start: 12-29-2023 End: 04-22-2025 Gender identity Not on file [facility] Has the [employer], [email or web address], or [employer] threatened to shut off services in your home in past 12Mo No [facility] How often to you hav e a drink containing alcohol? Never [facility] How many standard drinks containing alcohol do you have on a typical day? Patient does not drink [facility] [employer] (I/We) worried wheth er (my/our) food would run out before (I/we) got money to buy more. Never true [employer] Start: 05-05-2022 End: 11-27-2023 Sex Male (finding) [facility] Work Phone: Start: 11-29-2021 Gender identity Identifies as male gender (finding) [facility] Start: 10-23-2023 Sexual orientation Heterosexual (finding) [facility] Medical Equipment Procedure Code Equipment Code Equipment Origin al Text Equipment Identifier Dates Graft Infuse 20g a Medium Bovine Collagen Rhbmp-2 2x1in Bone Vial Absorbable - [id number] Start: 01-14-2022 Substitute Mastergraft Calcium Phosphate Collagen Bone Graft Putty Void - [id number] Start: 12-12-2021 Substitute Mastergraft 10cm Bone Graft Strip 12ml Spine - [id number] Start: 01-14-2022 Substitute Masterg[employer] 10cm Bone Graft Strip 12ml Spine - [id number] Start: 01-14-2022 Creo Thread 6.5 X [...] Uret 6fr 2 2cm Wo Gw - [id number] Start: 05-05-2024 Stent Uret 6fr 2 2cm Wo Gw - [id number] Start: 05-05-2024 Functional Status Date Assessment Result Facility 04-21-2025 Total score [AUDIT-C] 0 04/21/20 10:31 PM JARODT Giovnaa Barnard RN [facility] 02-22-2025 Are you deaf, or do you have serious difficulty hearing No 02/22/2025 8:55 PM JARODT Nahun Gunderson RN No [facility] 02-22-2025 Are you blind, or do you have serious difficulty seeing, even when wearing glasses No 02/22/2025 8:55 PM EDT Nahun Gunderson RN No [facility] 02-22-2025 Do you have serious difficulty walking or climbing stairs Yes 02/22/2025 8:55 PM EDT Nahun Gunderson RN Yes [facility] 02-22-2025 Do you have difficul ty dressing or bathing Yes 02/22/2025 8:55 PM EDT Nahun Gunderson RN Yes [facility] 02-22-2025 Because of a physica l, mental, or emotional condition, do you have difficulty doing errands alone such as visiting a physician's office or shopping Yes 02/22/2025 8:55 PM EDNahun Singh RN Yes [facility] 01-24-2022 Are you deaf, or do you have serious difficulty hearing No 01/24/2022 5:46 PM EDT Tiffanie Womack RN No [facility] 01-24-2022 Are you blind, or do you have serious difficulty seeing, even when wearing glasses No 01/24/2022 5:46 PM Tiffanie Boston RN No [facility] 01-24-2022 Do you have serious difficulty walking or climbing stairs Yes 01/24/2022 5:46 PM JARODT Tiffanie Womack RN Yes [facility] 01-24-2022 Do you have difficul ty dressing or bathing Yes 01/24/2022 5:46 PM Tiffanie Boston RN Yes [facility] 01-24-2022 Because of a physica l, mental, or emotional condition, do you have difficulty doing errands alone such as visiting a physician's office or shopping No 01/24/2022 5:46 PM EDT Tiffanie Womack, RN No [facility] Mental Status Date Assessment Result Facility 02-22-2025 Because of a physica l, mental, or emotional condition, do you have serious difficulty concentrating, remembering, or making decisions No 02/22/2025 8:55 PM EDT Nahun Gunderson RN No [facility] 01-24-2022 Because of a physica l, mental, or emotional condition, do you have serious difficulty concentrating, remembering, or making decisions No 01/24/2022 5:46 PM EDT Tiffanie Womack, RN No [facility] Clinical Notes 01-16-2021 to 04-28-2025 Joann King RN - 04/28/2025 3:38 PM EDTJoann King RN - 04/28/2025 3:38 PM EDSarwat Foster RN - 04/27/2025 2:46 PM EDTBerhane Moreno MD - 04/28/2025 2:45 PM EDTAttachments Note Date & Type Note Facility 04-28-2025 Nurse Note [facility] PICC line clean dry and intact. Aide got pt ready and gathered all belongings. Waiting on transport to arrive. [facility] 04-28-2025 Nurse Note Called report to the [facility]. PICC line clean dry and intact. Aide got pt ready and gathered all belongings. Waiting on transport to arrive. Patient dressings changed as per orders. Patient tolerated well. Left PICC dressing changed patient tolerated well documented in this encounter [facility] 04-28-2025 Note Discharge Summary Anmol Reynolds : [...] feeding: High Dos (more content not included)... [facility] 04-28-2025 Hospital course Narrative Images from the [...] Complexity: follow up within 7-14 calendar days (10970) [] Severe Complexity: follow up within 7 calendar days (48395) FOLLOW UP TESTING, PENDING RESULTS OR REFERRALS AT TRANSITIONAL CARE VISIT: [] Yes [] No PENDING STUDIES: DISPOSITION: Skilled Facility FACILITY/HOME CARE AGENCY NAME: Follow up with Tab Dupont PCP - General Internal Medicine [phone] [facility] [address] [facility] [address] Next Steps: Schedule an appointment as soon as possible for a visit in 1 week(s) [facility] Wound Ostomy Wound Care [phone] [address] [facility] [address] Next Steps: Schedule an appointment as soon as possible for a visit Kaela Durand MD Surgical Critical Care General Surgery Trauma Surgery [phone] [facility] [address] Next Steps: Schedule an appointment as soon as possible for a visit in 2 week(s) Savage Alvarez MD Infectious Diseases [phone] [facility] [address] Next Steps: Schedule an appointment as soon [...] PM documented in this encounter [facility] 04-28-2025 Plan of care note Proteus is sensitive to unasyn. OPAT for unasyn and vancomycin completed and scanned into media with stop date of 06/06. Follow up with Dr. Alvarez. D/w TCC. Plans for discharge to SNF. Jo-Ann Ortiz MD [facility] Work Phone: 04-28-2025 Miscellaneous Notes Proteus is sensitive to unasyn. OPAT for unasyn and vancomycin completed and scanned into media with stop date of 06/06. Follow up with Dr. Alvarez. D/w TCC. Plans for discharge to SNF. Jo-Ann Ortiz MD Confirmed pickup time of 5:30pm on 04/28/25 by transport [employer] at phone number [phone]. Location of facility drop off is [facility]. Facility notified via Careport, [facility] notified on secure chat. Transport requested in Roundtrip in will call to [facility] per TCC. Care Management Progress Note Short Medical why still here: continues to be treated for osteomyelitis. ID following- awaiting sensitivities for final IV plan. Currently receiving IV unasyn and vanc. PICC Line intact for antic 6wk course. Planned Discharge Disposition: plan for return to [facility]- will NOT need auth. HAT RENOVATOR to place pt in roundtrip under will [...] Planned Discharge Disposition: Plan for return to [facility]- does not need auth. Barriers/Today we still Wait: ID plan/opat. Length of Stay (Days): 5 GMLOS: 8.4 Care Management Progress Note Short Medical why still here: Pt continues to be treated for osteomyelitis. Receiving IV merrem q8hr with plan for 6wk tx per ID-final plan not complete. Planned Discharge Disposition: plan for return to [facility]- will need auth d/t skilled need for IV atb tx. Facility updated and asked to submit for auth. ADELINE complete. Barriers/Today we still Wait: Plan from ID/line placement and auth. Length of Stay (Days): 4 GMLOS: 8.4 Care Management Progress Note Short Medical why still here: Pt continues to be treated for osteomyelitis. ID following- receiving IV merrem and vanc- anticipate detention tx. Planned Discharge Disposition: Pt from [facility]- met with pt this afternoon- introduced self and role. Verified return when stable. Will need auth if pt has skilled needs (IV atb greater than once a day will qualify). Barriers/Today we still Wait: ID plan/line placement/opat. Length of Stay (Days): 3 GMLOS: 8.4 SW consult-[facility] transportation. SW reviewed chart. Pt is a LTC resident of [facility]. [place] is responsible for pt transportation for medical appointments. . Return Referral placed to [facility] via Careport per [facility] request. Await review and response regarding ability to accept. TCC notified. Care Management Progress Note Short Medical why still here: Pt adm for tx/evaluation of osteomyelitis. OR this am with surgery for debridement of sacral and ischial wounds. Receiving IV merrem and vanc with ID following- anticipate detention needs. Planned Discharge Disposition: Pt from [facility] detention. Attempted to confirm return with pt however [...] achieved with bovie electrocautery. Two pieces of [place] patch were placed in the wound bed. [...] x 4 cm = 28 cm2 [CPT 57522, 21838] Open biopsy of left ischium [CPT 31865] This note is electronically signed by: Kaela [...] ago. States that he is at a group home and they were concerned that his [...] EMS pt was sent here from the [place] for wound infections. Pt has two wound [...] Procedure Abnormality Status --------- ------ Culture, Aerobic Bacteri...[[id number]] Abnormal Preliminary result Anaerobic culture[[id number]] In process Please view results for these tests on the individual orders. CULTURE ANAEROBIC All other labs were within normal range or not returned as of this dictation. EMERGENCY DEPARTMENT COURSE and DIFFERENTIAL DIAGNOSIS/MDM: Vitals: Vitals: 04/21/258 BP: 113/62 BP Location: Right arm Patient Position: Lying Pulse: 82 Resp: 16 Temp: 36.7 C (98.1 F) TempSrc: Oral SpO2: 95% Weight: 90.7 kg (200 lb) Height: 1.905 m (6' 3) Diagnoses as of 04/22/25 0200 Other acute [...] sepsis, or septic shock (If yes use .sepsiscoremeasure): No FINAL IMPRESSION 1. Other acute osteomyelitis, [...] DECOMPRESSION performed by Opal Vigil MD at [facility] OR ORTHOPEDIC SURGERY Right removal [...] Resource Strain: Low Risk (04/24/2023) Received from [facility] Overall Financial Resource Strain (CARDIA) Difficulty of Paying Living Expenses: Not hard at all Food Insecurity: No Food Insecurity (02/17/2025) Received from [facility] Hunger Vital Sign Worried About Running Out of Food in the Last Year: Never true Ran Out of Food in the Last Year: Never true Transportation Needs: No Transportation Needs (02/17/2025) Received from [facility] PRAPARE - Transportation Lack of Transportation (Medical): No Lack of Transportation (Non-Medical): No Intimate Partner Violence: Not At Risk (05/18/2024) Humiliation, Afraid, Rape, and Kick questionnaire Fear of Current or Ex-Partner: No Emotionally Abused: No Physically Abused: No Sexually Abused: No Housing Stability: Unknown (02/17/2025) Received from [facility] Housing Stability Vital Sign Unable to Pay for Housing in the Last Year: No Homeless in the Last Year: No Brad Campos MD 04/22/25 0201 documented in this encounter [facility] 04-28-2025 Progress note Formatting of t his note might be different from the original. Confirmed pickup time of 5:30pm on 04/28/25 by [employer] at phone number [phone]. Location of facility drop off is [facility]. Facility notified via Careport, TCC notified on secure chat. [facility] 04-28-2025 Hospital Discharge instructions Berhane Moreno MD - 04/28/2025 1:10 PM EDT Up with assist Berhane Moreno MD - 04/28/2025 1:10 PM EDT ADA 1800 diet Joann King RN - 04/26/2025 10:39 AM EDT Images from the original note were not included. Continuity of Care Form Patient Name: Anmol Franco Gail : 1960 Admit date: 04/21/2025 Discharge date: 04/28/2025 Code Status Order: Full Code Advance Directives: N Admitting Physician: Georgette Bueno MD PCP: Tab Dupont Discharging Nurse: Joann Discharging Hospital Unit/Room#: N4-455/N4-455 A Discharging Unit Emergency [...] DECOMPRESSION performed by Opal Vigil MD at [facility] OR ORTHOPEDIC SURGERY Right removal [...] (Temporal) Resp 20 Ht 1.905 m (6' 3) Wt 88.6 kg (195 lb 6.4 oz) [...] assistance Toileting Total assistance Feeding Minimal assistance Shank Scourer Minimal assistance Med Delivery yes Wound Care [...] Date: 04/22/25 [facility]charg[facility] [place] [address] , [place] [address] [address] sc Trip Rider/Manager Copy signature: ICIAN SECTION Name: Anmol Reynolds Prognosis: good Condition at Discharge: stable Rehab Potential (if transferring to Rehab): fair Recommended Labs or Other Treatments After Discharge: CBC, CMP panel weekly till IV antibiotic is completed Discontinue PICC line after IV antibiotic is completed The individual is being admitted to a nursing facility directly from an [facility] or a unit of a [facility] that is not operated by or licensed by [facility] under section 5119.14 or 5160-3-15.1 5 The individual requires the level of services provided by a nursing facility for the condition for which he or she was treated in the hospital and, Physician Certification: I certify the above information and transfer of Anmol Reynolds is necessary for the continuing treatment of the diagnosis listed and that he requires long-term facility for greater than 30 days. Update Admission H&P: No change in H&P PHYSICIAN SIGNATURE: documented in this encounter [facility] 04-28-2025 Progress note Formatting of t his note might be different from the original. Transport requested in Roundtrip in will call to [facility] per TCC. [facility] 04-28-2025 Note Care Management Prog ress Note Short Medical why still here: continues to be treated for osteomyelitis. ID following- awaiting sensitivities for final IV plan. Currently receiving IV unasyn and vanc. PICC Line intact for antic 6wk course. Planned Discharge Disposition: plan for return to [facility]- will NOT need auth. HAT RENOVATOR to place pt in roundtrip under will call for transport assist. Barriers/Today we still Wait: need opat/final plan for discharge. Length of Stay (Days): 6 GMLOS: 8.4 [facility] 04-28-2025 Progress note Formatting of t his note might be different from the original. Care Management Progress Note Short Medical why still here: continues to be treated for osteomyelitis. ID following- awaiting sensitivities for final IV plan. Currently receiving IV unasyn and vanc. PICC Line intact for antic 6wk course. Planned Discharge Disposition: plan for return to [facility]- will NOT need auth. HAT RENOVATOR to place pt in roundtrip under will call for transport assist. Barriers/Today we still Wait: need opat/final plan for discharge. Length of Stay (Days): 6 GMLOS: 8.4 [facility] 04-28-2025 Note Hospitalist Progress Note 04/28/2025 10:05 AM [phone]: Please page me for patient care issues. [phone]: Please page [facility] night Hospitalist for any issues. Subjective: Admit Date: 04/21/2025 PCP: Tab Dupont Room#: N4-900/N4-362 A Interval History: Patient seen and examined [...] diet Regular; 4 carb choices (60 gm/meal) @[id number]@ Medications: Continuous Meds[2] Scheduled Meds[3] LABS: CBC: [...] 6 3 LIVER PROFILE:No results for input(s): AST, ALT, BILITOT, ALKPHOS, PROT in the last 72 hours. No lab exists for component: LABALBU PT/INR: No results for input(s): PROTIME, INR in the last 72 hours. CARDIAC ENZYMES: No results for input(s): TROPONINI in the last 72 hours. Procalcitonin: No results found for: PROCAL @RISRSLTSPECIALTY@ I reviewed: [x] laboratory results [x] radiographic results At the time of today's encounter. Pt was informed about the results. Objective: Vitals: BP 105/66 (BP Location: Right arm, Patient Position: Lying) Pulse 66 Temp 36.2 ?C (97.2 ?F) (Temporal) Resp 18 Ht 6' 3 (1.905 m) Wt 195 lb 6.4 oz [...] daily Wound care team following. PT recommended long-term facility Continue IV Venofer as ordered for [...] Reynolds Mobile Relation (more content not included)... [facility] 04-28-2025 History of Present illness Narrative Hospitalist Progress Note 04/28/2025 10:05 AM [phone]: Please page me for patient care issues. [phone]: Please page [facility] night Hospitalist for any issues. Subjective: Admit Date: 04/21/2025 PCP: Tab Dupont Room#: N4-710/N4-937 A Interval History: Patient seen and examined [...] diet Regular; 4 carb choices (60 gm/meal) @[id number]@ Medications: Continuous Meds[2] Scheduled Meds[3] LABS: CBC: [...] 6 3 LIVER PROFILE:No results for input(s): AST, ALT, BILITOT, ALKPHOS, PROT in the last 72 hours. No lab exists for component: LABALBU PT/INR: No results for input(s): PROTIME, INR in the last 72 hours. CARDIAC ENZYMES: No results for input(s): TROPONINI in the last 72 hours. Procalcitonin: No results found for: PROCAL @RISRSLTSPECIALTY@ I reviewed: [x] laboratory results [x] radiographic results At the time of today's encounter. Pt was informed about the results. Objective: Vitals: BP 105/66 (BP Location: Right arm, Patient Position: Lying) Pulse 66 Temp 36.2 C (97.2 F) (Temporal) Resp 18 Ht 6' 3 (1.905 m) Wt 195 lb 6.4 oz [...] daily Wound care team following. PT recommended long-term facility Continue IV Venofer as ordered for [...] made to ensure accuracy; however, inadvertent computerized payroll human resources assistant errors may be present. Berhane Moreno MD Division of Hospitalist Medicine IPexpert [facility] PAGER: Epic chat [1] Past Medical History: [...] creatinine, and vancomycin levels interfaced automatically to [employer] and data has been analyzed and interpreted. [...] Chat Hospitalist Progress Note 04/27/2025 9:04 AM [phone]: Please page me for patient care issues. [phone]: Please page [facility] night Hospitalist for any [...] diet Regular; 4 carb choices (60 gm/meal) @[id number]@ Medications: Continuous Meds[2] Scheduled Meds[3] LABS: CBC: [...] 6 3 LIVER PROFILE:No results for input(s): AST, ALT, BILITOT, ALKPHOS, PROT in the last 72 hours. No lab exists for component: LABALBU PT/INR: No results for input(s): PROTIME, INR in the last 72 hours. CARDIAC ENZYMES: No results for input(s): TROPONINI in the last 72 hours. Procalcitonin: No results found for: PROCAL @RISRSLTSPECIALTY@ I reviewed: [x] laboratory results [x] radiographic results At the time of today's encounter. Pt was informed about the results. Objective: Vitals: BP 97/55 (BP Location: Right arm, Patient Position: Lying) Pulse 67 Temp 36.2 C (97.2 F) (Temporal) Resp 18 Ht 6' 3 (1.905 m) Wt 195 lb 6.4 oz [...] daily Wound care team following. PT recommended long-term facility Continue IV Venofer as ordered for [...] made to ensure accuracy; however, inadvertent computerized payroll human resources assistant errors may be present. Berhane Moreno MD Division of Hospitalist Medicine [employer] [facility] Analyte Logic PAGER: Epic chat [1] Past Medical History: [...] creatinine, and vancomycin levels interfaced automatically to AudiencePoint and data has been analyzed and interpreted. [...] Chat Hospitalist Progress Note 04/26/2025 9:58 AM [phone]: Please page me for patient care issues. [phone]: Please page I[facility] night Hospitalist for any [...] diet Regular; 4 carb choices (60 gm/meal) @[id number]@ Medications: Continuous Meds[2] Scheduled Meds[3] LABS: CBC: [...] 7 6 LIVER PROFILE:No results for input(s): AST, ALT, BILITOT, ALKPHOS, PROT in the last 72 hours. No lab exists for component: LABALBU PT/INR: No results for input(s): PROTIME, INR in the last 72 hours. CARDIAC ENZYMES: No results for input(s): TROPONINI in the last 72 hours. Procalcitonin: No results found for: PROCAL @RISRSLTSPECIALTY@ I reviewed: [x] laboratory results [x] radiographic results At the time of today's encounter. Pt was informed about the results. Objective: Vitals: BP 100/56 (BP Location: Right arm, Patient Position: Lying) Pulse 67 Temp 36.6 C (97.9 F) (Temporal) Resp 20 Ht 6' 3 (1.905 m) Wt 195 lb 6.4 oz [...] daily Wound care team following. PT recommended long-term facility IV Venofer for iron deficiency anemia ordered x 2 dose Hold ferrous sulfate Discussed with vice president lending by clyde malone--okay to restart anticoagulation today [...] made to ensure accuracy; however, inadvertent computerized payroll human resources assistant errors may be present. Berhane Moreno MD Division of Hospitalist Medicine [employer] [facility] Analyte Logic PAGER: Clyde malone [1] Past Medical History: [...] creatinine, and vancomycin levels interfaced automatically to AudiencePoint and data has been analyzed and interpreted. [...] Chat Hospitalist Progress Note 04/25/2025 5:34 PM [phone]: Please page me for patient care issues. [phone]: Please page [facility] night Hospitalist for any issues. Subjective: [...] diet Regular; 4 carb choices (60 gm/meal) @[id number]@ Medications: Continuous Meds[2] Scheduled Meds[3] LABS: CBC: [...] 8 7 LIVER PROFILE:No results for input(s): AST, ALT, BILITOT, ALKPHOS, PROT in the last 72 hours. No lab exists for component: LABALBU PT/INR: No results for input(s): PROTIME, INR in the last 72 hours. CARDIAC ENZYMES: No results for input(s): TROPONINI in the last 72 hours. Procalcitonin: No results found for: PROCAL @RISRSLTSPECIALTY@ I reviewed: [x] laboratory results [x] radiographic results At the time of today's encounter. Pt was informed about the results. Objective: Vitals: BP 113/66 (BP Location: Right arm, Patient Position: Sitting) Pulse 69 Temp 36.1 C (96.9 F) (Temporal) Resp 21 Ht 6' 3 (1.905 m) Wt 195 lb 6.4 oz [...] daily Wound care team following PT recommended long-term facility Check iron profile Patient can be [...] made to ensure accuracy; however, inadvertent computerized payroll human resources assistant errors may be present. Berhane Moreno MD Division of Hospitalist Medicine [employer] PAGER: Epic chat [1] Past Medical History: [...] vancomycin, 1,500 mg, IntraVENous, q12h [facility] - Infectious Diseases Attending Progress [...] 1730 HCT 32.6 (L) 04/25/202555 PLT 421 04/25/20256 LYMPHOPCT 20.7 04/25/2025 0056 LYMPHOPCT 32 04/20/2024 0359 MONOPCT 9.3 04/25/2025 0056 MONOPCT 10 04/20/2024 0359 BASOPCT 0.4 04/25/2025 0056 BASOPCT 1 04/19/2024 0428 NEUTROABS 6.5 04/25/2025 0056 Micro: 04/24 tissue cx: E raffinosus so far 04/21 Wound cx: MRSA, anaerobic GNR, not B fragilis Lines: PIV Radiography/Echo/Other: reviewed Antimicrobials, Start/End Dates: Vancomycin Cefepime to Meropenem Impression: 64 M admitted from [facility] with: Worsening decubitus ulcer , concerning for [...] creatinine, and vancomycin levels interfaced automatically to AudiencePoint and data has been analyzed and interpreted. [...] TIME: 9:15 AM Bridgette Virk PharmD PGY1 Certified Vehicle Fire Investigator Available via Secure Chat Images from the original note were not included. Department of General Surgery Daily Progress Note ADMIT DATE: 04/21/2025 TODAY'S DATE: 04/25/2025 HPI: Anmol Reynolds is a 64 y.o. male with significant past medical history of paraplegia s/p [facility], HLD, HTN, MDD, OA, a-fib on eliquis, chronic sacral wounds who presents from his group home after he states the nurses have [...] (Temporal) Resp 21 Ht 1.905 m (6' 3) Wt 88.6 kg (195 lb 6.4 oz) SpO2 97% BMI 24.42 kg/m INTAKE/OUTPUT: Intake/Output Summary (Last 24 hours) at 04/25/2025 3519 Last data filed at 04/25/2025 0358 Gross [...] PROT 7.6 PT/INR: No results for input(s): PROTIME, INR in the last 72 hours. CARDIAC ENZYMES: No results for input(s): TROPONINI in the last 72 hours. Procalcitonin: No results found for: PROCAL COVID-19 PCR: No results for input(s): COVID19 in the last 72 hours. Objective: Vitals: BP 98/63 (BP Location: Right arm, Patient Position: Lying) Pulse 78 Temp 36.6 C (97.8 F) (Temporal) Resp 21 Ht 6' 3 (1.905 m) Wt 195 lb 6.4 oz [...] Contact: GAILSUMI Mobile Relation: Daughter Kerwin Clarke ChaDO yan Division of Hospitalist Medicine [employer] [facility] [1] Past Medical History: Diagnosis Date [...] good appetite - tolerated 100% of his brkfst after OR today) Weight Loss: No significant [...] (BLE Edema: Moderate pitting, indentation subsides rapidly) Magnet Placer Strength: Not Performed Chief Complaint Patient presents with Wound Infection Per EMS pt was sent here from the [place] for wound infections. 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 Nurse states she ordered [...] (kg): 82.41 kg Total Energy Requirements (kcals/day): 0530-7952 (25-30 kcals/kg) Weight Used for Protein Requirements: [...] Ordered Anthropometric Measures: Height: 190.5 cm (6' 3) Current Body Weight: 88.5 kg (195 lb) Weight Source: Bed Scale Admission Body Weight: 90.7 kg (200 lb) (stated) Usual Body Weight: 88.5 kg (195 lb) (190-200# per pt, was down to 135# in 2021 after surgery complication resulting in paraplegia) % Weight Change (Calculated): 0 [place] Body Weight (lbs) (Calculated): 196 lbs [place] Body Weight (Kg) (Calculated): 89 kg % [place] Body Weight (Calculated): 99.5 % BMI (kg/m2) (Calculated): 24.4 Weight Adjustment For: Paraplegia % Weight Adjustment: 7.5 - Paraplegia Total Adjusted Percentage (Calculated): 7.5 Adjusted [place] Body Weight (lbs) (Calculated): 181.3 lbs Adjusted [place] Body Weight (kg) (Calculated): 82.41 kg Adjusted [...] Elly Silverjozef MS, RD, LD Contact: or Seva Coffee (dial *[phone] from hospital phone) [1] Past Medical History: [...] DECOMPRESSION performed by Opal Vigil MD at [facility] OR ORTHOPEDIC SURGERY Right removal [...] creatinine, and vancomycin levels interfaced automatically to AudiencePoint and data has been analyzed and interpreted. [...] JOE Diaz CNP Family Communication Number Called: [phone] Name of Designated Family Lens Examiner: Ronald Reynolds Relationship: brother Phone Call Outcome: I spoke with the individual listed above. Family Lens Examiner Updated on the Following: I updated Ronald [...] s/p surgical complication with Dr. Ashley at [facility], HLD, HTN, MDD, OA, a-fib on eliquis, chronic sacral wounds who presents from his group home after he states the nurses have [...] (97.8 F) (Temporal) Resp 20 Ht 6' 3 (1.905 m) Wt 195 lb 6.4 oz [...] and possible. 64M with paraplegia following a Spine surgery for MRSA 3 years ago presents with a sacral and ischial ulcer requiring debridement. On Eliquis for A-fib, last dose was 04/22. I evaluated the patient in the pre-op area and discussed the plan for the OR. 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 I explained the plan to clean up [...] MD Division of Trauma Department of Surgery [facility] [1] Patient Active Problem List Diagnosis [...] INTAKE/OUTPUT: Intake/Output Summary (Last 24 hours) at 04/23/2025 5638 Last data filed at 04/23/2025 1650 Gross per 24 hour Intake -- Output 2600 ml Net -2600 ml Past Medical History: Medical History[1] LABS: CBC: Recent Labs 04/21/25225604/23/25 0013 WBC 12.5* 9.4 RBC 4.03* 3.47* HGB 11.7* 9.9* HCT 35.6* 30.7* MCV 88.3 88.5 RDW 14.9 14.9 PLT 372 352 BMP: Recent Labs 04/21/25225604/23/25 001 NA 130* 133* K 4.3 3.8 CL 99 105 CO2 21* 21* BUN 10 8* CREATININE 0.65* 0.54* GLUCOSE 202* 133* CALCIUM 8.5* 8.1* ANIONGAP 10 7 LIVER PROFILE: Recent Labs 04/21/252256 AST 13 ALT 6 BILITOT 0.5 ALKPHOS 116 PROT 7.6 PT/INR: No results for input(s): PROTIME, INR in the last 72 hours. CARDIAC ENZYMES: No results for input(s): TROPONINI in the last 72 hours. Procalcitonin: No results found for: PROCAL COVID-19 PCR: No results for input(s): COVID19 in the last 72 hours. Objective: Vitals: BP 113/70 (BP Location: Right arm, Patient Position: Lying) Pulse 72 Temp 36.4 C (97.6 F) (Temporal) Resp 21 Ht 6' 3 (1.905 m) Wt 195 lb 6.4 oz [...] Contact: SUMI REYNOLDS Mobile Relation: Daughter Kerwin BeckfordDO silas Division of Hospitalist Medicine [employer] [1] Past Medical History: Diagnosis Date Abnormal [...] original note were not included. PHYSICAL THERAPY [facility] Initial Evaluation Name/MRN: Anmol Reynolds ([id number]) Evaluation Date: 04/23/2025 Date of : 1960 Admission Date: 04/21/2025 9:56 PM Age: 64 y.o. Room/Bed: N4-465/N4-465 B Discharge Recommendation: Correction Facility Equipment Needed: No Assessment IMPRESSION: PT eval completed and the pt is at his functional baseline for transfers, ambulation, balance, and bed mobility. No skilled therapy needs at this time. Recommended return to [facility] level therapy upon disch and PT is [...] Anxiety 01/06/2017 Other acute osteomyelitis, other site ([facility]) 04/22/2025 Positive blood cultures 05/17/2024 Calculus of ureter 05/06/2024 Bladder calculus 05/05/2024 Pressure injury of coccygeal region, stage 3 ([facility]) 04/20/2024 Septic shock ([facility]) 04/14/2024 Lumbar stenosis with neurogenic claudication 10/24/2020 Spinal stenosis of lumbar region with neurogenic claudication 10/24/2020 Nicotine use disorder 10/15/2020 Unspecified osteoarthritis, unspecified site 10/15/2020 Pilonidal cyst without abscess 10/15/2020 Diabetes mellitus without complication ([facility]) 10/15/2020 Abnormal finding on EKG 10/15/2020 Other [...] x4 Social/Functional History Patient admitted from [facility] . Assistive Equipment: wheelchair - manual [...] of Care supervision is transferred to a [facility] Therapy Services Physical Therapist. Goals [...] DECOMPRESSION performed by Opal Vigil MD at [facility] OR ORTHOPEDIC SURGERY Right removal of hardware ankle US PLACE URETAL STENT PERC PRE-EXIST TRACT S&I (HISTORICAL) Bilateral 04/14/2024 Dr. Grimm/Bashir Pharmacy to Dose Vancomycin - Progress Note Lab Results Component Value Date CREATININE 0.54 (L) 04/23/2025 BUN 8 (L) 04/23/2025 WBC 9.4 04/23/2025 VANCORANDOM 12.3 (L) 04/16/2024 VANCOTROUGH 12.4 04/22/2025 Doses, serum creatinine, and vancomycin levels interfaced automatically to [employer]iencePoint and data has been analyzed and interpreted. [...] PROT 7.6 PT/INR: No results for input(s): PROTIME, INR in the last 72 hours. CARDIAC ENZYMES: No results for input(s): TROPONINI in the last 72 hours. Procalcitonin: No results found for: PROCAL COVID-19 PCR: No results for input(s): COVID19 in the last 72 hours. Objective: Vitals: BP 98/58 (BP Location: Right arm, Patient Position: Sitting) Pulse 71 Temp 36.9 C (98.5 F) (Temporal) Resp 16 Ht 6' 3 (1.905 m) Wt 195 lb 6.4 oz [...] Emergency Contact: GAILSUMI Mobile Relation: Daughter Kerwin RicciDO Division of Hospitalist Medicine [employer] [facility] [1] Past Medical History: Diagnosis Date [...] creatinine, and vancomycin levels interfaced automatically to [employer] and data has been analyzed and interpreted. [...] Chat documented in this encounter [facility] 04-28-2025 Note Pharmacy to Dose Van comycin - Progress Note Lab Results Component Value Date CREATININE 0.64 (L) 04/27/2025 BUN 21 04/27/2025 WBC 8.0 04/27/2025 VANCORANDOM 12.3 (L) 04/16/2024 VANCOTROUGH 12.0 04/24/2025 Doses, serum creatinine, and vancomycin levels interfaced automatically to [employer] and data has been analyzed and interpreted. [...] placed. DATE: 04/28/25 TIME: 7:21 AM Lauryn Begum, PharmMichelle Clinical Pharmacist Available via Secure Chat [facility] 04-27-2025 Plan of care note Assuming coverage from Dr. Alvarez- s/p Mina ischial wound debridement with osteomyelitis. Additional organisms are being reported on OR cx. E raffinosus, Proteus, MRSA, Clostridium ramosum, enteric gosia, and skin gosia. Await Proteus sensitivities prior to completion of OPAT. Will provide final recommendations tomorrow. D/w TCC. Jo-Ann Ortiz MD [facility] 04-27-2025 Note Care Management Prog ress Note Short Medical why still here: pt being treated for osteomyelitis. Receiving IV unaysn and vanc with ID planning on extended IV course- awaiting opat/final plan. Planned Discharge Disposition: Plan for return to [facility]- does not need auth. Barriers/Today we still Wait: ID plan/opat. Length of Stay (Days): 5 GMLOS: 8.4 [facility] 04-27-2025 Progress note Formatting of t his note might be different from the original. Care Management Progress Note Short Medical why still here: pt being treated for osteomyelitis. Receiving IV unaysn and vanc with ID planning on extended IV course- awaiting opat/final plan. Planned Discharge Disposition: Plan for return to [facility]- does not need auth. Barriers/Today we still Wait: ID plan/opat. Length of Stay (Days): 5 GMLOS: 8.4 [facility] 04-27-2025 Nurse Note Patient dressings changed as per orders. Patient tolerated well. Left PICC dressing changed patient tolerated well [facility] 04-27-2025 Note Hospitalist Progress Note 04/27/2025 9:04 AM [phone]: Please page me for patient care issues. [phone]: Please page IMS night Hospitalist for any [...] diet Regular; 4 carb choices (60 gm/meal) @[id number]@ Medications: Continuous Meds[2] Scheduled Meds[3] LABS: CBC: [...] 6 3 LIVER PROFILE:No results for input(s): AST, ALT, BILITOT, ALKPHOS, PROT in the last 72 hours. No lab exists for component: LABALBU PT/INR: No results for input(s): PROTIME, INR in the last 72 hours. CARDIAC ENZYMES: No results for input(s): TROPONINI in the last 72 hours. Procalcitonin: No results found for: PROCAL @RISRSLTSPECIALTY@ I reviewed: [x] laboratory results [x] radiographic results At the time of today's encounter. Pt was informed about the results. Objective: Vitals: BP 97/55 (BP Location: Right arm, Patient Position: Lying) Pulse 67 Temp 36.2 ?C (97.2 ?F) (Temporal) Resp 18 Ht 6' 3 (1.905 m) Wt 195 lb 6.4 oz [...] daily Wound care team following. PT recommended long-term facility Continue IV Venofer as ordered for [...] Primary Emergency Con (more content not included)... [facility] 04-27-2025 Note Pharmacy to Dose Van comycin - Progress Note Lab Results Component Value Date CREATININE 0.64 (L) 04/27/2025 BUN 21 04/27/2025 WBC 8.0 04/27/2025 VANCORANDOM 12.3 (L) 04/16/2024 VANCOTROUGH 12.0 04/24/2025 Doses, serum creatinine, and vancomycin levels interfaced automatically to [employer] and data has been analyzed and interpreted. [...] DATE: 04/27/25 TIME: 7:33 AM Brunilda Gomez, JudyD Clinical Pharmacist Available via Secure Chat [facility] 04-26-2025 Note Care Management Prog ress Note Short Medical why still here: Pt continues to be treated for osteomyelitis. Receiving IV merrem q8hr with plan for 6wk tx per ID-final plan not complete. [facility] will need auth d/t skilled need for IV atb tx. Facility updated and asked to submit for auth. ADELINE complete. Barriers/Today we still Wait: Plan from ID/line placement and auth. Length of Stay (Days): 4 GMLOS: 8.4 [facility] 04-26-2025 Progress note Formatting of t his note might be different from the original. Care Management Progress Note Short Medical why still here: Pt continues to be treated for osteomyelitis. Receiving IV merrem q8hr with plan for 6wk tx per ID-final plan not complete. Planned Discharge Disposition: plan for return to [facility]- will need auth d/t skilled need for IV atb tx. Facility updated and asked to submit for auth. ADELINE complete. Barriers/Today we still Wait: Plan from ID/line placement and auth. Length of Stay (Days): 4 GMLOS: 8.4 [facility] 04-26-2025 Note Hospitalist Progress Note 04/26/2025 9:58 AM [phone]: Please page me for patient care issues. [phone]: Please page [facility] night Hospitalist for any issues. Subjective: Admit Date: 04/21/2025 PCP: Tab Dupont Room#: N4-267/N4-373 A Interval History: Patient seen and examined [...] diet Regular; 4 carb choices (60 gm/meal) @[id number]@ Medications: Continuous Meds[2] Scheduled Meds[3] LABS: CBC: Recent Labs 04/24/2520504/25/255504/26/25 0039 WBC 9.3 9.5 7.3 RBC 3.68* 3.62* 3.76* HGB 10.6* 10.4* 11.0* HCT 32.8* 32.6* 33.8* MCV 89.1 90.1 89.9 RDW 14.9 14.8 14.8 PLT 367 421 386 BMP: Recent Labs 04/24/2520504/25/256 04/26/25 0039 NA 136 134* 136 K 4.0 4.3 4.0 CL 101 101 103 CO2 27 26 27 BUN 7* 14 19 CREATININE 0.59* 0.73 0.62* GLUCOSE 113 213* 155* CALCIUM 8.4* 8.2* 8.5* ANIONGAP 8 7 6 LIVER PROFILE:No results for input(s): AST, ALT, BILITOT, ALKPHOS, PROT in the last 72 hours. No lab exists for component: LABALBU PT/INR: No results for input(s): PROTIME, INR in the last 72 hours. CARDIAC ENZYMES: No results for input(s): TROPONINI in the last 72 hours. Procalcitonin: No results found for: PROCAL @RISRSLTSPECIALTY@ I reviewed: [x] laboratory results [x] radiographic results At the time of today's encounter. Pt was informed about the results. Objective: Vitals: BP 100/56 (BP Location: Right arm, Patient Position: Lying) Pulse 67 Temp 36.6 ?C (97.9 ?F) (Temporal) Resp 20 Ht 6' 3 (1.905 m) Wt 195 lb 6.4 oz [...] daily Wound care team following. PT recommended long-term facility IV Venofer for iron deficiency anemia ordered x 2 dose Hold ferrous sulfate Discussed with vice president lending by [employer]--okay to restart anticoagulation today Continue rest of [...] monitoring : Accu-C (more content not included)... [facility] 04-26-2025 Note Pharmacy to Dose Van comycin - Progress Note Lab Results Component Value Date CREATININE 0.62 (L) 04/26/2025 BUN 19 04/26/2025 WBC 7.3 04/26/2025 VANCORANDOM 12.3 (L) 04/16/2024 VANCOTROUGH 12.0 04/24/2025 Doses, serum creatinine, and vancomycin levels interfaced automatically to [employer] and data has been analyzed and interpreted. [...] PharmD Clinical Pharmacist Available via Secure Chat [facility] 04-25-2025 Note Hospitalist Progress Note 04/25/2025 5:34 PM [phone]: Please page me for patient care issues. [phone]: Please page [facility] night Hospitalist for any issues. Subjective: Admit Date: 04/21/2025 PCP: Tab Dupont Room#: N4-465/N4-165 B Interval History: Patient seen and examined [...] diet Regular; 4 carb choices (60 gm/meal) @[id number]@ Medications: Continuous Meds[2] Scheduled Meds[3] LABS: CBC: [...] 8 7 LIVER PROFILE:No results for input(s): AST, ALT, BILITOT, ALKPHOS, PROT in the last 72 hours. No lab exists for component: LABALBU PT/INR: No results for input(s): PROTIME, INR in the last 72 hours. CARDIAC ENZYMES: No results for input(s): TROPONINI in the last 72 hours. Procalcitonin: No results found for: PROCAL @RISRSLTSPECIALTY@ I reviewed: [x] laboratory results [x] radiographic results At the time of today's encounter. Pt was informed about the results. Objective: Vitals: BP 113/66 (BP Location: Right arm, Patient Position: Sitting) Pulse 69 Temp 36.1 ?C (96.9 ?F) (Temporal) Resp 21 Ht 6' 3 (1.905 m) Wt 195 lb 6.4 oz [...] Peripheral neuropathy DM History of chronic indwelling Snatana catheter Anemia Peripheral neuropathy Gastroesophageal flux disease Plan Continue antibiotics per infectious disease team Seen by general surgery team, recommendation noted Change diet to ADA 1800 diet Continue high-dose sliding scale insulin, increase dose of Lantus to 25 units daily Wound care team following PT recommended long-term facility Check iron profile Patient can be [...] Daughter Advance D (more content not included)... [facility] 04-25-2025 Note Care Management Prog ress Note Short Medical why still here: Pt continues to be treated for osteomyelitis. ID following- receiving IV merrem and vanc- anticipate predatory animal exterminator tx. Planned Discharge Disposition: Pt from [facility]- met with pt this afternoon- introduced self and role. Verified return when stable. Will need auth if pt has skilled needs (IV atb greater than once a day will qualify). Barriers/Today we still Wait: ID plan/line placement/opat. Length of Stay (Days): 3 GMLOS: 8.4 [facility] 04-25-2025 Progress note Formatting of t his note might be different from the original. Care Management Progress Note Short Medical why still here: Pt continues to be treated for osteomyelitis. ID following- receiving IV merrem and vanc- anticipate detention tx. Planned Discharge Disposition: Pt from [facility]- met with pt this afternoon- introduced self and role. Verified return when stable. Will need auth if pt has skilled needs (IV atb greater than once a day will qualify). Barriers/Today we still Wait: ID plan/line placement/opat. Length of Stay (Days): 3 GMLOS: 8.4 [facility] 04-25-2025 Note [facility] - Infectious Diseases Attending Progress [...] (L) 04/25/202555 K 4.3 04/25/202555 CL 101 04/25/20256 CO2 26 04/25/202555 BUN 14 04/25/202555 CREATININE 0.73 04/25/202555 CREATININE 0.57 (L) 10/25/2020 0457 GLUCOSE 213 (H) 04/25/202555 CALCIUM 8.2 (L) 04/25/20256 PROT 7.6 04/21/2025 2257 BILITOT 0.5 04/21/2025 2257 ALKPHOS 116 04/21/2025 2257 AST 13 04/21/2025 225 ALT 6 04/21/2025 225 PROCAL 27.06 (H) 04/14/2024 2318 Lab Results Component Value Date/Time WBC 9.5 04/25/20256 HGB 10.4 (L) 04/25/202555 HGB 13.7 04/14/2024 1730 HCT 32.6 (L) 04/25/202555 PLT 421 04/25/20256 LYMPHOPCT 20.7 04/25/2025 0056 LYMPHOPCT 32 04/20/2024 0359 MONOPCT 9.3 04/25/202555 MONOPCT 10 04/20/2024358 BASOPCT 0.4 04/25/202555 BASOPCT 1 04/19/2024 0428 NEUTROABS 6.5 04/25/202555 Micro: 04/24 tissue cx: E raffinosus so far 04/21 Wound cx: MRSA, anaerobic GNR, not B fragilis Lines: PIV Radiography/Echo/Other: reviewed Antimicrobials, Start/End Dates: Vancomycin Cefepime to Meropenem Impression: 64 M admitted from [facility] with: Worsening decubitus ulcer , concerning for [...] optimize wound healing. Will follow. Case d/wCM. [facility] 04-25-2025 Note Pharmacy to Dose Van comycin - Progress Note Lab Results Component Value Date CREATININE 0.73 04/25/2025 BUN 14 04/25/2025 WBC 9.5 04/25/2025 VANCORANDOM 12.3 (L) 04/16/2024 VANCOTROUGH 12.0 04/24/2025 Doses, serum creatinine, and vancomycin levels interfaced automatically to [employer] and data has been analyzed and interpreted. [...] TIME: 9:15 AM Bridgette Virk, PharmD PGY1 Certified Vehicle Fire Investigator Available via Secure [facility] 04-25-2025 Note Department of [facility] Surgery Daily Progress Note ADMIT DATE: 04/21/2025 TODAY'S DATE: 04/25/2025 HPI: Anmol Reynolds is a 64 y.o. male with significant past medical history of paraplegia s/p surgical complication with Dr. Ashley at [facility], HLD, HTN, MDD, OA, a-fib on eliquis, chronic sacral wounds who presents from his group home after he states the nurses have [...] consult for sacral wound, concern for osteomyelitis 7/21 To OR for sacral wound debridement 04/25 dressing changed OBJECTIVE: VITALS: BP 113/66 (BP Location: Right arm, Patient Position: Sitting) Pulse 72 Temp 36.1 ?C (96.9 ?F) (Temporal) Resp 21 Ht 1.905 m (6' 3) Wt 88.6 kg (195 lb 6.4 oz) [...] call with questions or concerns Maureen Garduno, CUPOLA TENDER HELPER - NETWORK OPERATIONS CENTER TECHNICIAN 04/25/25 7:58 AM [1] [Held by [...] polyethylene glycol (PEG) 3350, sodium chloride 0.9% [facility] 04-24-2025 Note Hospitalist Progress Note 04/24/2025 Subjective: [...] PLT 372 352 367 BMP: Recent Labs 04/21/25 2257 04/23/25 0013 04/24/25 0206 NA 130* 133* 136 K 4.3 3.8 4.0 CL 99 105 101 CO2 21* 21* 27 BUN 10 8* 7* CREATININE 0.65* 0.54* 0.59* GLUCOSE 202* 133* 113 CALCIUM 8.5* 8.1* 8.4* ANIONGAP 10 7 8 LIVER PROFILE: Recent Labs 04/21/252256 AST 13 ALT 6 BILITOT 0.5 ALKPHOS 116 PROT 7.6 PT/INR: No results for input(s): PROTIME, INR in the last 72 hours. CARDIAC ENZYMES: No results for input(s): TROPONINI in the last 72 hours. Procalcitonin: No results found for: PROCAL COVID-19 PCR: No results for input(s): COVID19 in the last 72 hours. Objective: Vitals: BP 98/63 (BP Location: Right arm, Patient Position: Lying) Pulse 78 Temp 36.6 ?C (97.8 ?F) (Temporal) Resp 21 Ht 6' 3 (1.905 m) Wt 195 lb 6.4 oz [...] precautions: increase ac (more content not included)... [facility] 04-24-2025 Note Patient declined smo rl cessation counseling. Accepting of handout with contact information for future reference. [facility] 04-24-2025 Progress note Formatting of t his note might be different from the original. SW consult-[facility] transportation. SW reviewed chart. Pt is a LTC resident of [facility]. [place] is responsible for pt transportation for medical appointments. . [facility] 04-24-2025 Note Return Referral plac ed to [facility] via [facility] per [facility] request. Await review and response regarding ability to accept. [facility] notified. [facility] 04-24-2025 Progress note Formatting of t his note might be different from the original. Return Referral placed to [facility] via Careport per [facility] request. Await review and response regarding ability to accept. [facility] notified. [facility] 04-24-2025 Note Care Management Prog ress Note Short Medical why still here: Pt adm for tx/evaluation of osteomyelitis. OR this am with surgery for debridement of sacral and ischial wounds. Receiving IV merrem and vanc with ID following- anticipate predatory animal exterminator needs. Planned Discharge Disposition: Pt from [facility]. Attempted to confirm return with pt however pt sleeping this am- unable to arouse for conversation. Barriers/Today we still Wait: IV atb/ID plan. Length of Stay (Days): 2 GMLOS: 4 [facility] 04-24-2025 Progress note Formatting of t his note might be different from the original. Care Management Progress Note Short Medical why still here: Pt adm for tx/evaluation of osteomyelitis. OR this am with surgery for debridement of sacral and ischial wounds. Receiving IV merrem and vanc with ID following- anticipate predatory animal exterminator needs. Planned Discharge Disposition: Pt from [facility]. Attempted to confirm return with pt however pt sleeping this am- unable to arouse for conversation. Barriers/Today we still Wait: IV atb/ID plan. Length of Stay (Days): 2 GMLOS: 4 [facility] 04-24-2025 Note Pharmacy to Dose Van comycin - Progress Note Lab Results Component Value Date CREATININE 0.59 (L) 04/24/2025 BUN 7 (L) 04/24/2025 WBC 9.3 04/24/2025 VANCORANDOM 12.3 (L) 04/16/2024 VANCOTROUGH 12.0 04/24/2025 Doses, serum creatinine, and vancomycin levels interfaced automatically to [employer] and data has been analyzed and interpreted. [...] Gambino PharmD Clinical Pharmacist Available via Secure [employer] [facility] 04-24-2025 Note Patient: Anmol Santiago en Procedure Summary Date: 04/24/25 Room / Location: [address] Operating Room Anesthesia Start: 729 Anesthesia [...] once all PACU criteria has been met. [facility] 04-24-2025 Note Patient: Anmol Santiago en Procedure Summary Date: 04/24/25 Room / Location: [address] Operating Room Anesthesia Start: 729 Anesthesia [...] opportunity for questions and acknowledgement of understanding. [facility] 04-24-2025 Nurse Note Patient states nobody here to update [facility] 04-24-2025 Note Family Communication Number Called: [phone] Name of Designated Family Lens Examiner: Ronald Given Relationship: brother Phone Call Outcome: I spoke with the individual listed above. Family Lens Examiner Updated on the Following: I updated Ronald on Anmol's surgery. He will rely the message to Ronald's daughter Sumi (phone number provided not functional). [facility] 04-24-2025 Note Airway Date/Time: 04/24/2025 7:37 AM Reason: scheduled Airway not difficult General Information and Staff Patient location during procedure: Procedural Resident/FOOTWEAR STITCHER: Quinten Salgado APRN - FOOTWEAR STITCHER Performed: FOOTWEAR STITCHER Patient Condition Indications for airway management: anesthesia [...] 23 Number of attempts at approach: 1 [facility] 04-24-2025 Note Patient: Anmol Franco Giv en Procedure Information Date/Time: 04/24/25 0730 Procedure: Sacral wound DEBRIDEMENT SKIN SUBCUTANEOUS TISSUE MUSCLE (Bilateral) Location: [address] Operating Room Surgeons: Keala Durand MD Relevant Problems Cardio (+) Hypertension [...] date: Other reduced mobility No date: Paraplegia ([facility]) No date: Sciatica No date: Spinal stenosis of lumbar region with neurogenic claudication No date: Type 2 diabetes mellitus without complication (CMS/HCC) (HCC) No date: Urinary calculus, unspecified No date: UTI (urinary tract infection) Past Surgical History: Past Surgical History: No date: ANKLE SURGERY; Right Comment: He has a titanium plate to the right ankle No date: KNEE SURGERY; Left Comment: ACL No date: KNEE SURGERY; Left Comment: removal of screw 10/24/2020: LAMINECTOMY; Left Comment: LEFT BILATERAL L2-3-4-5 DECOMPRESSION performed by Opal Vigil MD at [facility] OR No date: ORTHOPEDIC SURGERY; Right Comment: removal of hardware ankle 04/14/2024: PLACE URETAL STENT PERC PRE-EXIST TRACT S&I [...] Requests [1] No family history on file. [facility] 04-24-2025 Procedure note OPERATIVE REPORT Date of [...] achieved with bovie electrocautery. Two pieces of [place] patch were placed in the wound bed. [...] x 4 cm = 28 cm2 [CPT 62894, 45622] Open biopsy of left ischium [CPT 48740] This note is electronically signed by: Kaela Durand MD 1:56 PM, 04/25/2025. [facility] 04-24-2025 Plan of care note Problem: Pain [...] maintained or improved Outcome: Progressing [facility] 04-23-2025 Note Hospitalist Progress Note 04/23/2025 Subjective: [...] PROT 7.6 PT/INR: No results for input(s): PROTIME, INR in the last 72 hours. CARDIAC ENZYMES: No results for input(s): TROPONINI in the last 72 hours. Procalcitonin: No results found for: PROCAL COVID-19 PCR: No results for input(s): COVID19 in the last 72 hours. Objective: Vitals: BP 113/70 (BP Location: Right arm, Patient Position: Lying) Pulse 72 Temp 36.4 ?C (97.6 ?F) (Temporal) Resp 21 Ht 6' 3 (1.905 m) Wt 195 lb 6.4 oz [...] precautions: increase act (more content not included)... [facility] 04-23-2025 Plan of care note Problem: Pain - Adult Goal: Verbalizes/displays adequate comfort level or baseline comfort level Outcome: Progressing Problem: Safety - Adult Goal: Free from fall injury Outcome: Progressing Problem: Chronic Conditions and Co-morbidities Goal: Patient's chronic conditions and co-morbidity symptoms are monitored and maintained or improved Outcome: Progressing [facility] 04-23-2025 Note PHYSICAL THERAPY [facility] Initial Evaluation Name/MRN: Anmol Reynolds ([id number]) Evaluation Date: 04/23/2025 Date of : 1960 Admission Date: 04/21/2025 9:56 PM Age: 64 y.o. Room/Bed: N4-465/N4-465 B Discharge Recommendation: [facility] Facility Equipment Needed: No Assessment IMPRESSION: PT [...] Anxiety 01/06/2017 Other acute osteomyelitis, other site ([facility]) 04/22/2025 Positive blood cultures 05/17/2024 Calculus of ureter 05/06/2024 Bladder calculus 05/05/2024 Pressure injury of coccygeal region, stage 3 ([facility]) 04/20/2024 Septic shock ([facility]) 04/14/2024 Lumbar stenosis with neurogenic claudication 10/24/2020 Spinal stenosis of lumbar region with neurogenic claudication 10/24/2020 Nicotine use disorder 10/15/2020 Unspecified osteoarthritis, unspecified site 10/15/2020 Pilonidal cyst without abscess 10/15/2020 Diabetes mellitus without complication ([facility]) 10/15/2020 Abnormal finding on EKG 10/15/2020 Other [...] x4 Social/Functional History Patient admitted from [facility] . Assistive Equipment: wheelchair - manual [...] of Care supervision is transferred to a [facility] Physical Therapist. Goals and/or treatment plan was established in collaboration with patient/family/other representatives. [1] Past Medical History: Diagnosis Date Abnormal posture Abscess, perineum Anemia BPH (benign prostatic hyperplasia) Chronic back pain Hem (more content not included)... [facility] 04-23-2025 Note Pharmacy to Dose Van comycin - Progress Note Lab Results Component Value Date CREATININE 0.54 (L) 04/23/2025 BUN 8 (L) 04/23/2025 WBC 9.4 04/23/2025 VANCORANDOM 12.3 (L) 04/16/2024 VANCOTROUGH 12.4 04/22/2025 Doses, serum creatinine, and vancomycin levels interfaced automatically to [employer] and data has been analyzed and interpreted. [...] DATE: 04/23/25 TIME: 8:13 AM Radha Deal [facility] Clinical Pharmacist Available via Secure Chat [facility] 04-23-2025 Plan of care note Problem: Pain [...] maintained or improved Outcome: Progressing [facility] 04-22-2025 Consult note Associated Order (s): IP CONSULT TO INFECTIOUS DISEASES Images from the original note were not included. [facility] Medical Group - Infectious Diseases Attending Consult Note Reason for Consult: 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 History of Present Illness: 64 M with h/o MRSA lumbar epidural abscess from 2021, s/p decompression and fusion, but left paraplegic with neurogenic bladder. Recent hospitlaizaitons for PNA as well as [facility] Proteus UTI/ sepsis recently at [facility]. He had a sacral decubitus ulcer for years, was already improving but worsened since most recent prolonged hospitalization once more in February 2025. Buttock ulcer developed that time as well. Patient stabilized, completed IV antibiotics, and was doing well except at [facility] increased concern for worsening wound infection, Patient [...] Resource Strain: Low Risk (04/24/2023) Received from [facility] Overall Financial Resource Strain (CARDIA) Difficulty of [...] -- -- -- -- 1.905 m (6' 3) 88.6 kg (195 lb 6.4 oz) 04/22/25 0230 108/65 36.4 C (97.5 F) Temporal 73 16 97 % -- -- 04/21/25 2228 113/62 36.7 C (98.1 F) Oral 82 16 95 % 1.905 m (6' 3) 90.7 kg (200 lb) Physical Exam: Physical [...] NEUTROABS 8.8* Micro: No results for input(s): COVID19 in the last 72 hours. 04/21 wound [...] to Meropenem Impression: 64 M admitted from [facility] with: Worsening decubitus ulcer , concerning for [...] DECOMPRESSION performed by Opal Vigil MD at [facility] OR ORTHOPEDIC SURGERY Right removal [...] 4 % solution Topical Daily Alberto Boogie, MOWER OPERATOR cyclobenzaprine (Flexeril) tablet 10 mg 10 mg Oral TID PRN Alberto Boogie, MOWER OPERATOR 10 mg at 04/22/25 0624 dextrose 5 % infusion 100 mL/hr IntraVENous PRN Alberto Boogie, MOWER OPERATOR dextrose 50 % solution 12.5 g 12.5 g IntraVENous PRN Alberto Boogie, MOWER OPERATOR DULoxetine (Cymbalta) DR capsule 30 mg 30 mg Oral Daily Alberto Boogie, MOWER OPERATOR 30 mg at 04/22/25 0923 ferrous sulfate tablet 325 mg 325 mg Oral Daily with breakfast Alberto Boogie, MOWER OPERATOR 325 mg at 04/22/25 09 glucagon (human recombinant) injection 1 mg 1 mg IntraMUSCular PRN Alberto Boogie, MOWER OPERATOR glucose oral gel 15 g 15 g Oral PRN Alberto Boogie, MOWER OPERATOR insulin glargine (Lantus) injection 45 Units 45 Units SubCUTAneous q AM Alberto Boogie, MOWER OPERATOR 45 Units at 04/22/25 0921 Insulin Lispro (Humalog) injection 0-18 Units 0-18 Units SubCUTAneous TID WC Alberto Boogie, MOWER OPERATOR 9 Units at 04/22/25 0921 And Insulin Lispro (Humalog) injection 0-18 Units 0-18 Units SubCUTAneous Nightly Alberto Boogie, MOWER OPERATOR [START ON 04/24/2025] lactated Ringer's infusion 100 mL/hr IntraVENous Continuous Cari Maribel Ling MD linaGLIPtin (Tradjenta) tablet 5 mg 5 mg Oral Daily Alberto Boogie, MOWER OPERATOR 5 mg at 04/22/25 0946 meropenem (Merrem) 2,000 mg in sodium chloride 0.9 % 100 mL IVPB 2,000 mg IntraVENous q8h Kerwin Ricci DO midodrine (Proamatine) tablet 10 mg 10 mg Oral TID Alberto Boogie, MOWER OPERATOR 10 mg at 04/22/25 0921 mirtazapine (Remeron) tablet 7.5 mg 7.5 mg Oral Nightly Alberto Boogie, MOWER OPERATOR naloxone (Narcan) nasal spray 4 mg 4 mg Nasal PRN Alberto Boogie, MOWER OPERATOR ondansetron ODT (Zofran-ODT) disintegrating tablet 4 mg 4 mg Oral q8h PRN Alberto G Keagan, MOWER OPERATOR Or ondansetron (Zofran) injection 4 mg 4 mg IntraVENous q6h PRN Ross G Keagan, MOWER OPERATOR oxyCODONE (Roxicodone) immediate release tablet 15 mg 15 mg Oral 4x daily Alberto G [place], MOWER OPERATOR 15 mg at 04/22/25 0921 polyethylene glycol (PEG) 3350 (Miralax) packet 17 g 17 g Oral BID Ross G [place], MOWER OPERATOR 17 g at 04/22/25 0921 polyethylene glycol (PEG) 3350 (Miralax) packet 17 g 17 g Oral Daily PRN Ross G [place], MOWER OPERATOR pregabalin (Lyrica) capsule 200 mg 200 mg Oral TID Alberto G [place], MOWER OPERATOR 200 mg at 04/22/25 0920 senna-docusate sodium (Senokot-S) 8.6-50 MG tablet 2 tablet 2 tablet Oral BID Alberto G [place], MOWER OPERATOR 2 tablet at 04/22/25 0921 sodium chloride 0.9% (NS) flush 10 mL 10 mL IntraCATHeter q12h Ross G [place], MOWER OPERATOR 10 mL at 04/22/25 0634 sodium chloride 0.9% (NS) flush 10 mL 10 mL IntraCATHeter PRN Ross G Keagan, MOWER OPERATOR tamsulosin (Flomax) 24 hr capsule 0.4 mg 0.4 mg Oral Daily Alberto G Keagan, MOWER OPERATOR 0.4 mg at 04/22/25 0922 vancomycin IVPB 1500 mg in 250 mL NS (premix) 1,500 mg IntraVENous q12h Alberto G [place], MOWER OPERATOR [4] No Known Allergies [5] No family history on file. [facility] 04-22-2025 Consult note Associated Order (s): IP CONSULT TO INFECTIOUS DISEASES Images from the original note were not included. [facility] Group - Infectious Diseases Attending Consult Note Reason for Consult: 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 History of Present Illness: 64 M with h/o MRSA lumbar epidural abscess from 2021, s/p decompression and fusion, but left paraplegic with neurogenic bladder. Recent hospitlaizaitons for PNA as well as ES[facility] Proteus UTI/ sepsis recently at [facility]. He had a sacral decubitus ulcer for years, was already improving but worsened since most recent prolonged hospitalization once more in February 2025. Buttock ulcer developed that time as well. Patient stabilized, completed IV antibiotics, and was doing well except at [facility] increased concern for worsening wound infection, Patient [...] Resource Strain: Low Risk (04/24/2023) Received from [facility] Overall Financial Resource Strain (CARDIA) Difficulty of [...] -- -- -- -- 1.905 m (6' 3) 88.6 kg (195 lb 6.4 oz) 04/22/25 0230 108/65 36.4 C (97.5 F) Temporal 73 16 97 % -- -- 04/21/25 2228 113/62 36.7 C (98.1 F) Oral 82 16 95 % 1.905 m (6' 3) 90.7 kg (200 lb) Physical Exam: Physical [...] NEUTROABS 8.8* Micro: No results for input(s): COVID19 in the last 72 hours. 04/21 wound [...] to Meropenem Impression: 64 M admitted from [facility] with: Worsening decubitus ulcer , concerning for [...] DECOMPRESSION performed by Opal Vigil MD at [facility] OR ORTHOPEDIC SURGERY Right removal [...] (Hibiclens) 4 % solution Topical Daily Alberto Boogie NP cyclobenzaprine (Flexeril) tablet 10 mg 10 mg Oral TID PRN Alberto Boogie NP 10 mg at 04/22/25 0624 dextrose 5 % infusion 100 mL/hr IntraVENous PRN Alberto Boogie, MOWER OPERATOR dextrose 50 % solution 12.5 g 12.5 g IntraVENous PRN Alberto Boogie, MOWER OPERATOR DULoxetine (Cymbalta) DR capsule 30 mg 30 mg Oral Daily Alberto Boogie, MOWER OPERATOR 30 mg at 04/22/25922 ferrous sulfate tablet 325 mg 325 mg Oral Daily with breakfast Alberto Boogie MOWER OPERATOR 325 mg at 04/22/25920 glucagon (human recombinant) injection 1 mg 1 mg IntraMUSCular PRN Alberto Boogie, MOWER OPERATOR glucose oral gel 15 g 15 g Oral PRN Alberto Boogie, MOWER OPERATOR insulin glargine (Lantus) injection 45 Units 45 Units SubCUTAneous q AM Alberto Boogie MOWER OPERATOR 45 Units at 04/22/25920 Insulin Lispro (Humalog) injection 0-18 Units 0-18 Units SubCUTAneous TID WC Alberto Boogie MOWER OPERATOR 9 Units at 04/22/25920 And Insulin Lispro (Humalog) injection 0-18 Units 0-18 Units SubCUTAneous Nightly Alberto Boogie, MOWER OPERATOR [START ON 04/24/2025] lactated Ringer's infusion 100 mL/hr IntraVENous Continuous Cari Ling MD linaGLIPtin (Tradjenta) tablet 5 mg 5 mg Oral Daily Alberto Boogie MOWER OPERATOR 5 mg at 04/22/25945 meropenem (Merrem) 2,000 mg in sodium chloride 0.9 % 100 mL IVPB 2,000 mg IntraVENous q8h Kerwin Ricci DO midgregoriorine (Proamatine) tablet 10 mg 10 mg Oral TID Alberto Boogie, MOWER OPERATOR 10 mg at 04/22/25920 mirtazapine (Remeron) tablet 7.5 mg 7.5 mg Oral Nightly Alberto Boogie, TREVOR naloxone (Narcan) nasal spray 4 mg 4 mg Nasal PRN Alberto Boogie, MOWER OPERATOR ondansetron ODT (Zofran-ODT) disintegrating tablet 4 mg 4 mg Oral q8h PRN Alberto Boogie, MOWER OPERATOR Or ondansetron (Zofran) injection 4 mg 4 mg IntraVENous q6h PRN Alberto Boogie, MOWER OPERATOR oxyCODONE (Roxicodone) immediate release tablet 15 mg 15 mg Oral 4x daily Ross G [place], MOWER OPERATOR 15 mg at 04/22/25 0921 polyethylene glycol (PEG) 3350 (Miralax) packet 17 g 17 g Oral BID Ross G Keagan, MOWER OPERATOR 17 g at 04/22/25 0921 polyethylene glycol (PEG) 3350 (Miralax) packet 17 g 17 g Oral Daily PRN Alberto G Keagan, MOWER OPERATOR pregabalin (Lyrica) capsule 200 mg 200 mg Oral TID Alberto G [place], MOWER OPERATOR 200 mg at 04/22/25 0920 senna-docusate sodium (Senokot-S) 8.6-50 MG tablet 2 tablet 2 tablet Oral BID Alberto G Keagan, MOWER OPERATOR 2 tablet at 04/22/25 0921 sodium chloride 0.9% (NS) flush 10 mL 10 mL IntraCATHeter q12h Alberto G Keagan, MOWER OPERATOR 10 mL at 04/22/25 0634 sodium chloride 0.9% (NS) flush 10 mL 10 mL IntraCATHeter PRN Alberto G Keagan, MOWER OPERATOR tamsulosin (Flomax) 24 hr capsule 0.4 mg 0.4 mg Oral Daily Alberto Sanchez [place], MOWER OPERATOR 0.4 mg at 04/22/25 0922 vancomycin IVPB 1500 mg in 250 mL NS (premix) 1,500 mg IntraVENous q12h Alberto G [place], MOWER OPERATOR [4] No Known Allergies [5] No family history on file. Associated Order(s): IP CONSULT TO GENERAL SURGERY Images from the original note were not included. Department of General Surgery Surgical Service - [facility] Resident Consult Note 04/22/2025 CHIEF COMPLAINT: Chief Complaint Patient presents with Wound Infection Per EMS pt was sent here from the [place] [place] for wound infections. Pt has two wound on his sacrum - one at the top of sacrum and one at the bottom of the buttocks. Denies any fever/ CP/FEVER/ SOB. Pt is paralysis. 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 male with significant past medical history of paraplegia s/p surgical complication with Dr. Ashley at [facility], HLD, HTN, MDD, OA, a-fib on eliquis, chronic sacral wounds who presents from his group home after he states the nurses have [...] 0.5 04/21/2025 PT/INR: No results found for: PROTIME, INR Troponin: No results found for: TROPONINI LIPASE: No results found for: LIPASE IMAGING: CT pelvis w IV contrast Narrative: Patient Name: ANMOL REYNOLDS : 1960 [facility]#: [id number] Exam Date/Time: 04/22/2025 00:01 Procedure: CT PELVIS [...] This note may have been dictated using [employer] Edition 2.6 and/or [employer] Voice Recognition Feature. The document was proofread; however, unrecognized voice recognition payroll human resources assistant errors may be present. [1] Past [...] DECOMPRESSION performed by Opal Vigil MD at [facility] OR ORTHOPEDIC SURGERY Right removal of hardware ankle US PLACE URETAL STENT PERC PRE-EXIST TRACT S&I (HISTORICAL) Bilateral 04/14/2024 Dr. Grimm/Bashir [3] Current Facility-Administered Medications Medication Dose Route Frequency Provider Last Rate Last Admin acetaminophen (Tylenol) tablet 650 mg 650 mg Oral q6h PRN Alberto Sanchez Keagan, MOWER OPERATOR Or acetaminophen (Tylenol) suppository 650 mg 650 mg Rectal q6h PRN Alberto Sanchez Keagan, MOWER OPERATOR [Held by provider] apixaban (Eliquis) tablet 5 mg 5 mg Oral BID Alberto Sanchez [place], MOWER OPERATOR bisacodyl (Dulcolax) EC tablet 5 mg 5 mg Oral Daily PRN Alberto Sanchez Keagan, MOWER OPERATOR bisacodyl (Dulcolax) suppository 10 mg 10 mg Rectal Daily PRN Alberto Miltons, MOWER OPERATOR calcium carbonate (Tums) chewable tablet 1,000 mg 1,000 mg Oral q8h PRN Alberto Miltons, MOWER OPERATOR cefepime (Maxipime) 2,000 mg in sodium chloride 0.9 % 50 mL IVPB Mini-Bag Plus 2,000 mg IntraVENous q8h Alberto Sanchez Keagan, MOWER OPERATOR cyclobenzaprine (Flexeril) tablet 10 mg 10 mg Oral TID PRN Alberto Sanchez [place], MOWER OPERATOR dextrose 5 % infusion 100 mL/hr IntraVENous PRN Alberto Sanchez [place], MOWER OPERATOR dextrose 50 % solution 12.5 g 12.5 g IntraVENous PRN Alberto Sanchez Keagan, MOWER OPERATOR DULoxetine (Cymbalta) DR capsule 30 mg 30 mg Oral Daily Alberto Sanchez Keagan, MOWER OPERATOR ferrous sulfate tablet 325 mg 325 mg Oral Daily with breakfast Alberto Miltons, MOWER OPERATOR glucagon (human recombinant) injection 1 mg 1 mg IntraMUSCular PRN Alberto Miltons, MOWER OPERATOR glucose oral gel 15 g 15 g Oral PRN Alberto Boogie, TREVOR insulin glargine (Lantus) injection 45 Units 45 Units SubCUTAneous q AM Alberto Boogie NP Insulin Lispro (Humalog) injection 0-18 Units 0-18 Units SubCUTAneous TID WC Alberto Boogie, MOWER OPERATOR And Insulin Lispro (Humalog) injection 0-18 Units 0-18 Units SubCUTAneous Nightly Alberto Boogie, TREVOR linaGLIPtin (Tradjenta) tablet 5 mg 5 mg Oral Daily Alberto Boogie, TREVOR midodrine (Proamatine) tablet 10 mg 10 mg Oral TID Alberto Boogie, TREVOR mirtazapine (Remeron) tablet 7.5 mg 7.5 mg Oral Nightly Alberto Boogie, TREVOR naloxone (Narcan) nasal spray 4 mg 4 mg Nasal PRN Alberto Boogie NP ondansetron ODT (Zofran-ODT) disintegrating tablet 4 mg 4 mg Oral q8h PRN Alberto Boogie MOWER OPERATOR Or ondansetron (Zofran) injection 4 mg 4 mg IntraVENous q6h PRN Alberto Boogie, TREVOR oxyCODONE (Roxicodone) immediate release tablet 15 mg 15 mg Oral 4x daily Alberto Boogie, TREVOR polyethylene glycol (PEG) 3350 (Miralax) packet 17 g 17 g Oral BID Alberto Boogie NP polyethylene glycol (PEG) 3350 (Miralax) packet 17 g 17 g Oral Daily PRN Alberto Boogie, TREVOR pregabalin (Lyrica) capsule 200 mg 200 mg Oral TID Alberto Boogie, TREVOR senna-docusate sodium (Senokot-S) 8.6-50 MG tablet 2 tablet 2 tablet Oral BID Alberto Boogie, TREVOR tamsulosin (Flomax) 24 hr capsule 0.4 [...] Resource Strain: Low Risk (04/24/2023) Received from [facility] Overall Financial Resource Strain (CARDIA) Difficulty of [...] appropriate exam and evaluation Meliton Carrero MD, [facility] Trauma, Surgical Critical Care & Acute Care Surgery Division of Trauma Department of Surgery [facility] [1] Patient Active Problem List Diagnosis [...] as of this encounter: 1.905 m (6' 3). Weight as of this encounter: 90.7 kg [...] creatinine, and vancomycin levels interfaced automatically to [employer] and data has been analyzed and interpreted. [...] Chat documented in this encounter [facility] 04-22-2025 Note Hospitalist Progress Note 04/22/2025 Subjective: [...] PROT 7.6 PT/INR: No results for input(s): PROTIME, INR in the last 72 hours. CARDIAC ENZYMES: No results for input(s): TROPONINI in the last 72 hours. Procalcitonin: No results found for: PROCAL COVID-19 PCR: No results for input(s): COVID19 in the last 72 hours. Objective: Vitals: BP 98/58 (BP Location: Right arm, Patient Position: Sitting) Pulse 71 Temp 36.9 ?C (98.5 ?F) (Temporal) Resp 16 Ht 6' 3 (1.905 m) Wt 195 lb 6.4 oz [...] intensive monitoring: parenteral (more content not included)... [facility] 04-22-2025 Plan of care note Problem: Pain [...] maintained or improved Outcome: Progressing [facility] 04-22-2025 Note Pharmacy to Dose Van comycin - Progress Note Lab Results Component Value Date CREATININE 0.65 (L) 04/21/2025 BUN 10 04/21/2025 WBC 12.5 (H) 04/21/2025 VANCORANDOM 12.3 (L) 04/16/2024 VANCOTROUGH 12.4 04/22/2025 Doses, serum creatinine, and vancomycin levels interfaced automatically to [employer] and data has been analyzed and interpreted. [...] PharmD Clinical Pharmacist Available via Secure Chat [facility] [employer] [facility] 04-22-2025 Plan of care note Problem: Pain [...] monitored and maintained or improved Outcome: Progressing [facility] 04-22-2025 Consult note Associated Order (s): IP CONSULT TO GENERAL SURGERY Images from the original note were not included. Department of General Surgery Surgical Service - [facility] Resident Consult Note 04/22/2025 CHIEF COMPLAINT: Chief Complaint Patient presents with Wound Infection Per EMS pt was sent here from the [place] for wound infections. Pt has two wound on his sacrum - one at the top of sacrum and one at the bottom of the buttocks. Denies any fever/ CP/FEVER/ SOB. Pt is paralysis. 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 male with significant past medical history of paraplegia s/p surgical complication with Dr. Ashley at [facility], HLD, HTN, MDD, OA, a-fib on eliquis, chronic sacral wounds who presents from his group home after he states the nurses have [...] 0.5 04/21/2025 PT/INR: No results found for: PROTIME, INR Troponin: No results found for: TROPONINI LIPASE: No results found for: LIPASE IMAGING: CT pelvis w IV contrast Narrative: Patient Name[facility] 1960 [id number] Exam Date/Time: 04/22/2025 00:01 Procedure: CT PELVIS [...] This note may have been dictated using [employer] Practice Edition 2.6 and/or [employer] Voice Recognition Feature. The document was proofread; however, unrecognized voice recognition payroll human resources assistant errors may be present. [1] Past [...] DECOMPRESSION performed by Opal Vigil MD at [facility] OR ORTHOPEDIC SURGERY Right removal [...] 12.5 g 12.5 g IntraVENous PRN Alberto Boogie NP DULoxetine (Cymbalta) DR capsule 30 mg 30 mg Oral Daily Alberto G Keagan, MOWER OPERATOR ferrous sulfate tablet 325 mg 325 mg Oral Daily with breakfast Alberto Miltons, MOWER OPERATOR glucagon (human recombinant) injection 1 mg 1 mg IntraMUSCular PRN Alberto Miltons, MOWER OPERATOR glucose oral gel 15 g 15 g Oral PRN Alberto G Keagan, MOWER OPERATOR insulin glargine (Lantus) injection 45 Units 45 Units SubCUTAneous q AM Alberto G Keagan, MOWER OPERATOR Insulin Lispro (Humalog) injection 0-18 Units 0-18 Units SubCUTAneous TID WC Alberto G [place], MOWER OPERATOR And Insulin Lispro (Humalog) injection 0-18 Units 0-18 Units SubCUTAneous Nightly Alberto G [place], MOWER OPERATOR linaGLIPtin (Tradjenta) tablet 5 mg 5 mg Oral Daily Alberto Sanchez [place], MOWER OPERATOR midodrine (Proamatine) tablet 10 mg 10 mg Oral TID Alberto Miltons, MOWER OPERATOR mirtazapine (Remeron) tablet 7.5 mg 7.5 mg Oral Nightly Alberto Miltons, MOWER OPERATOR naloxone (Narcan) nasal spray 4 mg 4 mg Nasal PRN Alberto Miltons, MOWER OPERATOR ondansetron ODT (Zofran-ODT) disintegrating tablet 4 mg 4 mg Oral q8h PRN Alberto Miltons, MOWER OPERATOR Or ondansetron (Zofran) injection 4 mg 4 mg IntraVENous q6h PRN Alberto Miltons, MOWER OPERATOR oxyCODONE (Roxicodone) immediate release tablet 15 mg 15 mg Oral 4x daily Alberto Miltons, MOWER OPERATOR polyethylene glycol (PEG) 3350 (Miralax) packet 17 g 17 g Oral BID Alberto Sanchez Keagan, MOWER OPERATOR polyethylene glycol (PEG) 3350 (Miralax) packet 17 g 17 g Oral Daily PRN Alberto Miltons, MOWER OPERATOR pregabalin (Lyrica) capsule 200 mg 200 mg Oral TID Alberto Miltons, MOWER OPERATOR senna-docusate sodium (Senokot-S) 8.6-50 MG tablet 2 tablet 2 tablet Oral BID Alberto G Keagan, MOWER OPERATOR tamsulosin (Flomax) 24 hr capsule 0.4 mg 0.4 mg Oral Daily Alberto G [place], MOWER OPERATOR vancomycin IVPB 1500 mg in 250 mL NS (premix) 1,500 mg IntraVENous q12h Alberto G [place], MOWER OPERATOR [4] Social History Socioeconomic History Marital status: [...] Resource Strain: Low Risk (04/24/2023) Received from [facility] Overall Financial Resource Strain (CARDIA) Difficulty of [...] []Other Discussed/ With: [x]Patient/Family [x]RN []Consultants [x]Primary []/TCC []Other I spent total time of 60 [...] Surgery Division of Trauma Department of Surgery [facility] [1] Patient Active Problem List Diagnosis [...] blood cultures Other acute osteomyelitis, other site ([facility]) [facility] 04-22-2025 Consult note Formatting of th is [...] as of this encounter: 1.905 m (6' 3). Weight as of this encounter: 90.7 kg [...] creatinine, and vancomycin levels interfaced automatically to [employer] and data has been analyzed and interpreted. [...] RPh Clinical Pharmacist Available via Secure Chat [employer] 04-22-2025 History and physical note Attending History and Physical Admit Date: 04/21/2025 PCP: Tab Dupont CHIEF COMPLAINT: Wound infection Reason for Admission: Osteomyelitis History Obtained From: patient HISTORY OF PRESENT ILLNESS: Anmol is a 64 y.o. male with past medical history below who presents with chief complaint listed above. Patient sent to [facility] assisted staff to leave the patient's wounds on his sacrum were worsening and becoming infected. Patient is a paraplegic for the last 4 years after surgical complication with Dr. Ashley at [facility]. ER workup was significant for sodium of [...] he normally does but states that the group home felt like his wounds were getting [...] Resource Strain: Low Risk (04/24/2023) Received from [facility] Overall Financial Resource Strain (CARDIA) Difficulty of Paying Living Expenses: Not hard at all Food Insecurity: No Food Insecurity (02/17/2025) Received from [facility] Hunger Vital Sign Worried About Running Out of Food in the Last Year: Never true Ran Out of Food in the Last Year: Never true Transportation Needs: No Transportation Needs (02/17/2025) Received from [facility] PRAPARE - Transportation Lack of Transportation (Medical): No Lack of Transportation (Non-Medical): No Physical Activity: Not on file Stress: Not on file Social Connections: Not on file Intimate Partner Violence: Not At Risk (05/18/2024) Humiliation, Afraid, Rape, and Kick questionnaire Fear of Current or Ex-Partner: No Emotionally Abused: No Physically Abused: No Sexually Abused: No Housing Stability: Unknown (02/17/2025) Received from [facility] Housing Stability Vital Sign Unable to Pay [...] (98.1 F) (Oral) Resp 16 Ht 6' 3 (1.905 m) Wt 200 lb (90.7 kg) [...] PROT 7.6 PT/INR: No results for input(s): PROTIME, INR in the last 72 hours. CARDIAC ENZYMES: No results for input(s): TROPONINI in the last 72 hours. Procalcitonin: No results found for: PROCAL Urine Culture: Results for orders placed or [...] ug/ml COVID-19 PCR: No results for input(s): COVID19 in the last 72 hours. I reviewed: [...] Extended Emergency Contact Information Primary Emergency Contact: Roanld Reynolds Mobile Relation: Sibling Secondary Emergency Contact: [...] - DO NOT do CPR, intubation] [_] [DNR-MARKETING TRAFFIC MANAGER - Comfort care only] [_] DNR form [...] DECOMPRESSION performed by Opal Vigil MD at [facility] OR ORTHOPEDIC SURGERY Right removal [...] treatment as noted above. Mike Bueno MD [facility] [employer] Work Phone: 04-22-2025 Note Attestation signed by Georgette [...] chief complaint listed above. Patient sent to [facility] ER [facility]. assisted staff to leave the patient's wounds on his sacrum were worsening and becoming infected. Patient is a paraplegic for the last 4 years after surgical complication with Dr. Ashley at [facility]. ER workup was significant for sodium of [...] he normally does but states that the group home felt like his wounds were getting [...] Resource Strain: Low Risk (04/24/2023) Received from [facility] Overall Financial Resource Strain (CARDIA) Difficulty of Paying Living Expenses: Not hard at all Food Insecurity: No Food Insecurity (02/17/2025) Received from [facility] Hunger Vital Sign Worried About Running Out of Food in the Last Year: Never true Ran Out of Food in the Last Year: Never true Transportation Needs: No Transportation Needs (02/17/2025) Received from [facility] PRAPARE - Transportation Lack of Transportation (Medical): No Lack of Transportation (Non-Medical): No Physical Activity: Not on file Stress: Not on file Social Connections: Not on file Intimate Partner Violence: Not At Risk (05/18/2024) Humiliation, Afraid, Rape, and Kick questionnaire Fear of Current or Ex-Partner: No Emotionally Abused: No Physically Abused: No Sexually Abused: No Housing Stability: Unknown (02/17/2025) Received from [facility] Housing Stability Vital Sign Unable to Pay [...] (98.1 ?F) (Oral) Resp 16 Ht 6' 3 (1.905 m) Wt 200 lb (90.7 kg) [...] Normal rate a (more content not included)... [facility] 04-22-2025 History and physical note Attending History and Physical Admit Date: 04/21/2025 PCP: Tab Dupont CHIEF COMPLAINT: Wound infection Reason for Admission: Osteomyelitis History Obtained From: patient HISTORY OF PRESENT ILLNESS: Anmol is a 64 y.o. male with past medical history below who presents with chief complaint listed above. Patient sent to [facility] ER [facility]. assisted staff to leave the patient's wounds on his sacrum were worsening and becoming infected. Patient is a paraplegic for the last 4 years after surgical complication with Dr. Ashley at [facility]. ER workup was significant for sodium of [...] he normally does but states that the group home felt like his wounds were getting [...] Resource Strain: Low Risk (04/24/2023) Received from [facility] Overall Financial Resource Strain (CARDIA) Difficulty of Paying Living Expenses: Not hard at all Food Insecurity: No Food Insecurity (02/17/2025) Received from [facility] Hunger Vital Sign Worried About Running Out of Food in the Last Year: Never true Ran Out of Food in the Last Year: Never true Transportation Needs: No Transportation Needs (02/17/2025) Received from [facility] PRAPARE - Transportation Lack of Transportation (Medical): No Lack of Transportation (Non-Medical): No Physical Activity: Not on file Stress: Not on file Social Connections: Not on file Intimate Partner Violence: Not At Risk (05/18/2024) Humiliation, Afraid, Rape, and Kick questionnaire Fear of Current or Ex-Partner: No Emotionally Abused: No Physically Abused: No Sexually Abused: No Housing Stability: Unknown (02/17/2025) Received from [facility] Housing Stability Vital Sign Unable to Pay [...] (98.1 F) (Oral) Resp 16 Ht 6' 3 (1.905 m) Wt 200 lb (90.7 kg) [...] PROT 7.6 PT/INR: No results for input(s): PROTIME, INR in the last 72 hours. CARDIAC ENZYMES: No results for input(s): TROPONINI in the last 72 hours. Procalcitonin: No results found for: PROCAL Urine Culture: Results for orders placed or [...] ug/ml COVID-19 PCR: No results for input(s): COVID19 in the last 72 hours. I reviewed: [...] - DO NOT do CPR, intubation] [_] [DNR-MARKETING TRAFFIC MANAGER - Comfort care only] [_] DNR form [...] DECOMPRESSION performed by Opal Vigil MD at [facility] OR ORTHOPEDIC SURGERY Right removal [...] MD documented in this encounter [facility] 04-21-2025 Emergency department Note Placed new meplix pads on open wounds on sacrum. Pictures updated in pt's chart. [facility] 04-21-2025 Emergency department Note Placed new meplix pads on open wounds on sacrum. Pictures updated in pt's chart. EMERGENCY DEPARTMENT ENCOUNTER Pt Name: Anmol Reynolds Birthdate 1960 Date of evaluation: 04/21/2025 ED Provider: Chele León MD CHIEF COMPLAINT Chief Complaint Patient presents with Wound Infection Per EMS pt was sent here from the [place] for wound infections. Pt has two wound [...] Family History[3] SOCIAL HISTORY Social History[4] SCREENINGS [place] Coma Scale Best Eye Response: Spontaneous Best Verbal Response: Oriented Best Motor Response: Follows commands [place] Coma Scale Score: 15 PHYSICAL EXAM ED [...] Procedure Abnormality Status --------- ------ Culture, Aerobic Bacteri...[[id number]] Abnormal Preliminary result Anaerobic culture[[id number]] In process Please view results for these [...] kg (200 lb) Height: 1.905 m (6' 3) The patient is presenting with wound infections. [...] DECOMPRESSION performed by Opal Vigil MD at [facility] OR ORTHOPEDIC SURGERY Right removal [...] Resource Strain: Low Risk (04/24/2023) Received from [facility] Overall Financial Resource Strain (CARDIA) Difficulty of Paying Living Expenses: Not hard at all Food Insecurity: No Food Insecurity (02/17/2025) Received from [facility] Hunger Vital Sign Worried About Running Out of Food in the Last Year: Never true Ran Out of Food in the Last Year: Never true Transportation Needs: No Transportation Needs (02/17/2025) Received from [facility] PRAPARE - Transportation Lack of Transportation (Medical): No Lack of Transportation (Non-Medical): No Intimate Partner Violence: Not At Risk (05/18/2024) Humiliation, Afraid, Rape, and Kick questionnaire Fear of Current or Ex-Partner: No Emotionally Abused: No Physically Abused: No Sexually Abused: No Housing Stability: Unknown (02/17/2025) Received from [facility] Housing Stability Vital Sign Unable to Pay for Housing in the Last Year: No Homeless in the Last Year: No Chele León MD Resident 04/22/25 0219 Cosigned by Brad Campos MD at 04/22/2025 2:22 AM EDT documented in this encounter [facility] 04-21-2025 Physician Emergency department Note EMERGENCY DEPARTMENT ENCOUNTER Pt Name: Anmol Reynolds Birthdate 1960 Date of evaluation: 04/21/2025 ED Provider: Chele León MD CHIEF COMPLAINT Chief Complaint Patient presents with Wound Infection Per EMS pt was sent here from the [place] for wound infections. Pt has two wound [...] Family History[3] SOCIAL HISTORY Social History[4] SCREENINGS [place] Coma Scale Best Eye Response: Spontaneous Best [...] Procedure Abnormality Status --------- ------ Culture, Aerobic Bacteri...[[id number]] Abnormal Preliminary result Anaerobic culture[[id number]] In process Please view results for these [...] kg (200 lb) Height: 1.905 m (6' 3) The patient is presenting with wound infections. [...] received IV vancomycin, IV cefepime for coverage. [facility] hospitalist was consulted for admission for [...] DECOMPRESSION performed by Opal Vigil MD at [facility] OR ORTHOPEDIC SURGERY Right removal [...] Resource Strain: Low Risk (04/24/2023) Received from [facility] Overall Financial Resource Strain (CARDIA) Difficulty of Paying Living Expenses: Not hard at all Food Insecurity: No Food Insecurity (02/17/2025) Received from [facility] Hunger Vital Sign Worried About Running Out of Food in the Last Year: Never true Ran Out of Food in the Last Year: Never true Transportation Needs: No Transportation Needs (02/17/2025) Received from [facility] PRAPARE - Transportation Lack of Transportation (Medical): No Lack of Transportation (Non-Medical): No Intimate Partner Violence: Not At Risk (05/18/2024) Humiliation, Afraid, Rape, and Kick questionnaire Fear of Current or Ex-Partner: No Emotionally Abused: No Physically Abused: No Sexually Abused: No Housing Stability: Unknown (02/17/2025) Received from [facility] Housing Stability Vital Sign Unable to Pay for Housing in the Last Year: No Homeless in the Last Year: No Chele León MD Resident 04/22/25 0219 Cosigned by Brad Campos MD at 04/22/2025 2:22 AM EDT [facility] 04-21-2025 Physician Emergency department Note Patient: Anmol [...] ago. States that he is at a group home and they were concerned that his [...] EMS pt was sent here from the [place] for wound infections. Pt has two wound [...] Family History[3] SOCIAL HISTORY Social History[4] SCREENINGS [place] Coma Scale Best Eye Response: Spontaneous Best [...] Procedure Abnormality Status --------- ------ Culture, Aerobic Bacteri...[[id number]] Abnormal Preliminary result Anaerobic culture[[id number]] In process Please view results for these tests on the individual orders. CULTURE ANAEROBIC All other labs were within normal range or not returned as of this dictation. EMERGENCY DEPARTMENT COURSE and DIFFERENTIAL DIAGNOSIS/MDM: Vitals: Vitals: 04/21/258 BP: 113/62 BP Location: Right arm Patient Position: Lying Pulse: 82 Resp: 16 Temp: 36.7 C (98.1 F) TempSrc: Oral SpO2: 95% Weight: 90.7 kg (200 lb) Height: 1.905 m (6' 3) Diagnoses as of 04/22/25 0200 Other acute [...] sepsis, or septic shock (If yes use .sepsiscoremeasure): No FINAL IMPRESSION 1. Other acute osteomyelitis, [...] DECOMPRESSION performed by Opal Vigil MD at [facility] OR ORTHOPEDIC SURGERY Right removal [...] Resource Strain: Low Risk (04/24/2023) Received from [facility] Overall Financial Resource Strain (CARDIA) Difficulty of Paying Living Expenses: Not hard at all Food Insecurity: No Food Insecurity (02/17/2025) Received from [facility] Hunger Vital Sign Worried About Running Out of Food in the Last Year: Never true Ran Out of Food in the Last Year: Never true Transportation Needs: No Transportation Needs (02/17/2025) Received from [facility] PRAPARE - Transportation Lack of Transportation (Medical): No Lack of Transportation (Non-Medical): No Intimate Partner Violence: Not At Risk (05/18/2024) Humiliation, Afraid, Rape, and Kick questionnaire Fear of Current or Ex-Partner: No Emotionally Abused: No Physically Abused: No Sexually Abused: No Housing Stability: Unknown (02/17/2025) Received from [facility] Housing Stability Vital Sign Unable to Pay for Housing in the Last Year: No Homeless in the Last Year: No Brad Campos MD 04/22/25 0201 [place] Phone: 03-24-2025 Telephone encounter Note Per op note pt should get a renal US in [address]. [address] the order? [facility] 03-24-2025 Miscellaneous Notes Per op note pt should get a renal US in [address] the order? documented in this encounter [facility] 03-20-2025 Note HNO ID: [id number] Author: JAX VALENZUELA APRN.FOOTWEAR STITCHER Service: Anesthesiology Author Type: Nurse Equipment Operation Instructor Type: Anesthesia Procedure Notes Filed: 03/20/2025 10:33 [...] Imaging Guidance Used: No SIGNATURE: Jax Valenzuela APRN.CRNA PATIENT NAME: Anmol Araujo Given DATE: March 20, 2025 TIME: 10:32 AM CSN: [id number] [facility] 03-20-2025 Note HNO ID: [id number] Author: JAX AVLENZUELA APRN.FOOTWEAR STITCHER Service: Anesthesiology Author Type: Nurse Equipment Operation Instructor Type: Anesthesia Procedure Notes Filed: 03/20/2025 10:32 Note Text: ANESTHESIOLOGY PROCEDURE NOTE Airway General Information Procedure Start Time/Medication Administration: 03/20/2025 10:27 AM Procedure End Time: 03/20/2025 10:27 AM Patient location during procedure: OR Consent Obtained: Yes Patient identity confirmed: arm band and patient Staffing FOOTWEAR STITCHER: Jax Valenzuela APRN.FOOTWEAR STITCHER Performed by: FOOTWEAR STITCHER Indications and Patient Condition Indications for airway management: anesthesia Preoxygenated: yes anesthesia circuit Patient position: sniffing Method: asleep Difficult Mask: No Final Airway Details Final airway type: supraglottic airway Final Supraglottic Airway: i-gel Size 5 Seal Adequate: yes Failed airway: no Airway not difficult SIGNATURE: Jax Valenzuela APRN.CRNA PATIENT NAME: Anmol Araujo Given DATE: March 20, 2025 TIME: 10:32 AM CSN: [id number] [facility] 03-15-2025 Telephone encounter Note Spoke to nursing facility who states Pt is going to proceed with surgery at [facility]. [facility] 03-15-2025 Miscellaneous Notes Spoke to nursing facility who states Pt is going to proceed with surgery at [facility]. Left message for Pts nurse to call me back. Can you call [facility] and see if they are going to send disc to us? Or if patient still scheduled for procedure at [facility]. [place] number: [phone] Still need disc with images. Will need to review with Dr. Grimm. Is it OK to get Pt scheduled for surgery? Please advise. Talked to staff from [facility] that patient would like to have procedure at [facility]. Requested that CD with images from [facility] be sent to [facility] urology. Staff will let Farideh know- she does scheduling/arranges procedures for residents. [place] [facility] number: [phone] documented in this encounter [facility] 03-15-2025 Telephone encounter Note Left message for Pts nurse to call me back. [facility] 03-14-2025 Note HNO ID: [id number] Author: MILAD GOODSON MD Service: ? Author Type: Physician Type: Progress Notes Filed: 03/20/2025 10:37 Note Text: INFECTIOUS DISEASE WOUND CENTER NOTE Patient Name: Anmol Given Date: 03/14/2025 ASSESSMENT: Worsening ischial wound post hospitalization at [facility] recently Chronic sacral S5 segment chronic [...] clinical infection in the area Wound center [employer] follow up in 1 week INTERVAL HISTORY: ROS done with pt and negative unless stated. Was recently admitted to [facility] and needed intubation and ventilation. Since [...] 11/25/2021 8 09/06/2021 (more content not included)... [facility] 03-14-2025 History of Present illness Narrative Images from the original note were not included. INFECTIOUS DISEASE WOUND CENTER NOTE Patient Name: Anmol Reynolds Date: 03/14/2025 ASSESSMENT: Worsening ischial wound post hospitalization at [facility] recently Chronic sacral S5 segment chronic [...] clinical infection in the area Wound center [employer] follow up in 1 week INTERVAL HISTORY: ROS done with pt and negative unless stated. Was recently admitted to [facility] and needed intubation and ventilation. Since [...] with multiple staff Home Care Company/Nursing Facility: [place] Consent captured for debridement per (Provider) and good until Special Instructions (for example, patient stands at the bedside for exam/dressing): bed Anticoagulant Therapy: Eliquis Living Situation (ie... Apartment, house, ADRIAN[facility] Who lives with patient: facility Who will [...] BY PROVIDER: Anesthetic Used: N/A applied per data governance consultant # 1 & 2 Other procedure: Specimen [...] order date DME: [employer] , PH: [phone] SPECIAL [facility] [phone] Emotional support N/A OR set-up N/A Orthopaedic Doctor N/A Incontinence needs N/A DISCHARGED in stable [...] be drawn PARI and results faxed to [facility] [phone] Stop smoking EDUCATION: The patient/family was instructed [...] to ANY of questions 5-9, [facility] documented in this encounter [facility] 03-14-2025 Instructions Dawood Tiwari RN - 03/14/2025 2:16 PM EDT WOUND CARE INSTRUCTIONS- Anmol Reynolds Wound location: sacrum & left ischium [facility] Wound Cleansing: -Gather supplies -Place down a [...] following changes to the Wound Center at [phone] or go to the Emergency Department: Fever or chills Increased drainage Green or yellow drainage Foul odor Increased pain Hardness around the wound Redness, warmth or swelling of the surrounding tissue Color change to the wound When contacting the wound center at the ([phone]): Leave a message that includes your full [...] be drawn PARI and results faxed to [facility] [phone] Stop smoking Milad Goodson MD/jose/lt documented in this encounter [facility] 03-14-2025 Note HNO ID: [id number] Author: DAWOOD TIWARI RN Service: ? Author Type: Registered Nurse Type: Progress Notes Filed: 03/14/2025 14:54 Note Text: Nursing Documentation Pertinent Medical History: paraplegia, MRSA, osteomyelitis, UTI, DM2, neuropathy, pyelonephritis, Wound Etiology according to patient: sacrum wound has had for four years per pt Patient arrived via: self in motorized wheelchair - patient is a [place] with multiple staff [facility] Consent captured for debridement per (Provider) and good until Special Instructions (for example, patient stands at the bedside for exam/dressing): bed Anticoagulant Therapy: Eliquis Living Situation (ie... Apartment, house, ADRIANNA): [facility] Who lives with patient: facility Who will [...] BY PROVIDER: Anesthetic Used: N/A applied per data governance consultant # 1 AND 2 Other procedure: Specimen [...] order date DME: [employer] , PH: [phone] SPECIAL [facility]S: [facility] [phone] Emotional support N/A OR set-up N/A Orthopaedic Doctor N/A Incontinence needs N/A DISCHARGED in stable [...] be drawn PARI and results faxed to [facility] [phone] Stop smoking EDUCATION: The patient/family was instructed [...] had radiation therapy (more content not included)... [facility] 03-14-2025 Note Can you call [facility] and see if they are going to send disc to us? Or if patient still scheduled for procedure at [facility]. Tierra Delvalle number: [phone] [facility] 03-14-2025 Telephone encounter Note Can you call [facility] and see if they are going to send disc to us? Or if patient still scheduled for procedure at [facility]. [facility]: [phone] [facility] Phone: 03-14-2025 Miscellaneous Notes Can you call [facility] and see if they are going to send disc to us? Or if patient still scheduled for procedure at [facility]. [facility] number: [phone] Still need disc with images. Will need to review with Dr. Grimm. Is it OK to get Pt scheduled for surgery? Please advise. Talked to staff from [facility] that patient would like to have procedure at [facility]. Requested that CD with images from [facility] be sent to [facility] urology. Staff will let Farideh know- she does scheduling/arranges procedures for residents. [facility] number: [phone] documented in this encounter [facility] 03-13-2025 Telephone encounter Note Still need disc with images. Will need to review with Dr. Grimm. [facility] Phone: 03-13-2025 Miscellaneous Notes Still need disc with images. Will need to review with Dr. Grimm. Is it OK to get Pt scheduled for surgery? Please advise. Talked to staff from [facility] that patient would like to have procedure at [facility]. Requested that CD with images from [facility] be sent to [facility] urology. Staff will let Farideh know- she does scheduling/arranges procedures for residents. [facility] number: [phone] documented in this encounter [facility] 03-13-2025 Telephone encounter Note Is it OK to get Pt scheduled for surgery? Please advise. [facility] 03-08-2025 Telephone encounter Note Patient is scheduled and group home was notified. Information was faxed. Comfort Sotelo [facility] 03-08-2025 Miscellaneous Notes Patient is scheduled and group home was notified. Information was faxed. [facility] Needs outpt cysto, pyelograms, bilateral stent change vs removal in 2-3 weeks. documented in this encounter [facility] 03-07-2025 Note Talked to staff from [facility] that patient would like to have procedure at [facility]. Requested that CD with images from [facility] be sent to [facility] u[facility]. Staff will let Farideh know- she does scheduling/arranges procedures for residents. [place] [place] [facility] number: [phone] [facility] 03-07-2025 Telephone encounter Note Talked to staff from [facility] that patient would like to have procedure at [facility]. Requested that CD with images from [facility] be sent to [facility]. Staff will let Farideh know- she does scheduling/arranges procedures for residents. [facility] number: [phone] [facility] 03-07-2025 Miscellaneous Notes Talked to staff from [facility] that patient would like to have procedure at [facility]. Requested that CD with images from [facility] be sent to [facility] u[facility]. Staff will let Farideh know- she does scheduling/arranges procedures for residents. [facility] number: [phone] documented in this encounter [facility] 03-07-2025 History of Present illness Narrative Images from the original note were not included. JOE Burks CNP 03/07/2025 9:15 AM Urology Office Visit [facility] [address] [place] [address], [facility] [address] [id number] PATIENT NAME: Anmol Franco Given DATE OF : 1960 REFERRING PROVIDER: No ref. provider found PCP: Tab Dupont TODAY'S DATE: 03/07/2025 Visit type: Established patient HPI: Anmol is a 64 y.o. male who presents today with chief complaints of: Chief Complaint Patient presents with Nephrolithiasis 04/14/2024 underwent Cystoscopy pyelogram bilateral stent change Santana insertion with Dr Grimm for fungus ball/stone in bladder 05/05/2024 underwent Cystoscopy pyelogram litholapaxy of large bladder stone left ureteroscopy with replacement of left stent, right stent change with Dr Grimm Did not have any follow up for stent removal/exchange. Presented to OSH ER 02/16/25 unresponsive. Septic- culture w gram negative rods. Treated. Follow up outpatient with [facility] urology Patient is scheduled for surgery w Dr Maria on 03/20/25 however he prefers treatment at [facility] Will need images for surgery [...] for: TESTOSTERONE PSA: No results found for: PSA, PSATOTALIN Hemoglobin A1C: Lab Results Component Value [...] 8. Details above. 9. Follow-up as indicated. Dining Chair Seat Cushion Trimmer: CECILIA Transcribe Date/Time: Feb 16 2025 10:02P Dictated by : CORBIN PERRY MD This examination was interpreted and the report reviewed and electronically signed by: CORBIN PERRY MD on Feb 16 2025 10:34PM EST Narrative * * *Final Report* * * DATE OF EXAM: Feb 16 2025 8:33PM [facility] 0530 - CT ABD/PEL W [...] up: No follow-ups on file. Yoana Solitario, JOE - NETWORK OPERATIONS CENTER TECHNICIAN [facility] Please note that portions of this chart were dictated using [employer] electronic voice recognition software. It is possible [...] DECOMPRESSION performed by Opal Vigil MD at [facility] OR ORTHOPEDIC SURGERY Right removal of hardware ankle US PLACE URETAL STENT PERC PRE-EXIST TRACT S&I (HISTORICAL) Bilateral 04/14/2024 Dr. Grimm/Bashir [3] No Known Allergies documented in this encounter [facility] 03-07-2025 Instructions JOE Burks CNP - 03/07/2025 9:00 AM EDT Need images from [facility] on disc brought to office for review in order for patient to have ureteral stent treatment at [facility]. Patient prefers [facility]. CT abdomen/pelvis 02/16/25 XR abdomen 02/16/25 and 02/17/25 Planning for ESWL vs laser litho w stent exchange. documented in this encounter [facility] 02-22-2025 Note HNO ID: [id number] Author: JESSICA CLEMENT RPh Service: Pharmacy Author Type: Pharmacist Type: Plan of Care Filed: 02/22/2025 15:28 Note Text: DISCHARGE MEDICATION REVIEW BY PHARMACY Patient Name: Anmol Reynolds Account #: Data Unavailable Admission Date: 02/16/2025 Date of Contact: February 22, 2025 Time of Contact: 3:26 PM Medication list was reviewed by a Pharmacist for drug interactions or drug related problems:Yes Below is a summary of pharmacist recommendations discussed with LIP: No recommendations at this time from discharge medication list. Jessica Clement RPh Pager: [phone] 02/22/2025 3:26 PM Medication List START taking [...] [facility] 02-22-2025 Note HNO ID: [id number] Author: ANDREA PALENCIA RN Service: Care Management Author Type: Registered Nurse Type: Care Mgt Progress Note Filed: 02/22/2025 15:26 Note Text: CARE MANAGEMENT DISCHARGE NOTE SERVICE DATE: February 22, 2025 SERVICE TIME: 3:24 PM Admission Date: 02/16/2025 LOS: 5 days Discharge Arrangement Discharge Arrangement: Extended Care Facility Services Arranged Provider Name: [facility] Caregiver Assessment Caregiver is ready, willing and able to meet the patient's needs as recommended by the inter-professional team: Yes Name of Caregiver: Facility staff Transportation Arrangements Transportation Arrangements: Ambulance Transportation Agency and Phone #:: [employer] [facility] ( [facility] ) [phone] / [phone] Date of Trip: 02/22/25 Time of Trip: 1999 Type of Service: BLS Non-emergency Is Patient Medicaid Pending?: No Was transportation financial coverage discussed with family?: Patient Travel Physical Therapist Location: [facility] Destination: Return to [facility] Financial Care Management Responsibility: None Handoff Communication: Additional Information: Met with pt and he is agreeable to return to [facility]. Will D/C today at 8 pm via cot with [facility].. D/C paperwork sent electronically and RN to call N2N report. Pt stated he called his brother re: the D/C and time of return to [facility]. SIGNATURE: Andrea Palencia RN PATIENT NAME: Anmol Given DATE: February 22, 2025 TIME: 3:24 PM [facility] 02-22-2025 Note HNO ID: [id number] Author: ANDREA PALENCIA RN Service: Care Management Author Type: Registered Nurse Type: Care Mgt Progress Note Filed: 02/22/2025 15:22 Note Text: CARE MANAGEMENT PROGRESS NOTE SERVICE DATE: 02/22/2025 SERVICE TIME: 3:22 PM LOS: 5 days IMM Follow Up Copy Given: Yes Copy given to:: Patient Lens Examiner Name/Relationship: Daughter Sumi Method: In Person Met with pt in room and explained the IMM, he states he understands. He is agreeable to D/C. SIGNATURE: Andrea Palencia RN PATIENT NAME: Anmol Given DATE: February 22, 2025 TIME: 3:22 PM [facility] 02-22-2025 Note HNO ID: [id number] Author: ANDREA PALENCIA RN Service: Care Management Author Type: Registered Nurse Type: Care Mgt Progress Note Filed: 02/22/2025 13:53 Note Text: CARE MANAGEMENT PROGRESS NOTE SERVICE DATE: 02/22/2025 SERVICE TIME: 1:53 PM LOS: 5 days IMM Follow Up Copy Given: Yes Copy given to:: Patient Lens Examiner Lens Examiner Name/Relationship: Ilir Jonas Method: By Phone SIGNATURE: Andrea Palencia RN PATIENT NAME: Anmol Given DATE: February 22, 2025 TIME: 1:53 PM [facility] 02-21-2025 Note HNO ID: [id number] Author: ANDREA PALENCIA RN Service: Care Management Author Type: Registered Nurse Type: Care Mgt Progress Note Filed: 02/21/2025 15:41 Note Text: CARE MANAGEMENT PROGRESS NOTE SERVICE DATE: 02/21/2025 SERVICE TIME: 3:39 PM LOS: 4 days D/C plan to return To [place] [facility] when medically ready. D/C packet created and will need cot transport when ready. SIGNATURE: Andrea Palencia RN PATIENT NAME: Anmol Given DATE: February 21, 2025 TIME: 3:39 PM [facility] 02-21-2025 Note HNO ID: [id number] Author: BRIA SHER MD Service: Hospital Medicine Author Type: Physician Type: Progress Notes Filed: 02/21/2025 13:23 Note Text: DEPARTMENT OF HOSPITAL MEDICINE Hospital Medicine/Primary Attending: Bria Sher MD NIGHT AND WEEKEND COVERAGE: After 7pm please page [phone] MEDICATIONS: Current Facility-Administered Medications Medication Dose Route [...] -- -- 1.2 BMP: Recent Labs 02/21/25 04502/20/25 0539 02/19/2541802/18/2541902/17/2522402/16/251921 GLUC 162* 90 115* 177* 225* 131* NA 135* 141 137 135* 132* 136 K 4.1 4.1 3.7 3.9 4.7 4.4 CHLOR 105 110* 106 104 104 105 CO2 21* 23 21* 20* 17* 17* ANION 9 8 10 11 11 14 BUN 21 25* 36* 37* 34* 33* CREAT 0.58* 0.60* 0.64* 1.04 1.90* 2.35* CHEM: Recent Labs 02/21/25 04502/20/25 0539 02/19/2541802/18/2541902/17/2522402/16/251921 ALB 2.5* 2.3* 2.3* 2.3* 2.5* 2.3* TPROT 6.6 5.7* 5.5* 5.8* 6.0* 5.9* CA 8.2* 7.7* 7.8* 7.8* 8.2* 7.7* MG -- -- -- 2.3 -- 1.6* HEPATIC: Recent Labs 02/21/25 0454 02/20/25 0539 02/19/25 0419 02/18/25 0420 02/17/25 0225 02/16/25 1922 ALKPHOS 121* 107 112 115* 174* 286* ALT 15 17 21 25 21 17 AST 23 22 25 38 41* 31 TBILI 0.8 0.8 0.5 0.6 0.9 0.9 URINALYSIS: Recent Labs 02/16/25 2107 SPGR 1.037* UGLUC Negative UBILI Negative UKET Negative UHB 3+* UPROT 2+* UWBC >25 /HPF* CARDIAC: No results for input(s): PBNP in the last 168 hours. Problem List [...] (Src) 98.1 (Oral) Resp 18 Ht 5' 11 (1.80m) Wt 216 lb 0.8 oz (98.0kg) [...] [facility] 02-20-2025 Note HNO ID: [id number] Author: YOANA OROSCO, LIBRADO Service: ? Author Type: Registered Nurse Type: Nursing Progress Note Filed: 02/20/2025 18:07 Note Text: Other: Report called to 4100 RN. [facility] 02-20-2025 Note HNO ID: [id number] Author: GAYLE SCOTT MD Service: Infectious Disease [...] to urology. 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 Spinal cord injury residing at [facility], presented to [facility] 02/16/2025 for unresponsiveness when normally alert [...] that although she was not at the group home she was called and told he [...] [facility] 02-20-2025 Note HNO ID: [id number] Author: PENNY VILLASEÑOR RN Service: Care Management Author Type: Registered Nurse Type: Care Mgt Progress Note Filed: 02/20/2025 16:13 Note Text: CARE MANAGEMENT PROGRESS NOTE SERVICE DATE: 02/20/2025 SERVICE TIME: 4:11 PM LOS: 3 days Needs Prior to Discharge: Discharge Transportation DC plan: [place] [place] [facility]. Pt is LTC and a bed hold. Updates to facility. Met with pt and provided update. Pt agreeable to return. SIGNATURE: Penny Villaseñor RN PATIENT NAME: Anmol Given DATE: February 20, 2025 TIME: 4:11 PM [facility] 02-20-2025 Note HNO ID: [id number] Author: ELIZABETH SOLER MD Service: Critical Care Author Type: Physician Type: Progress Notes Filed: 02/20/2025 13:05 Note Text: [facility] STAFF PHYSICIAN NOTE OF PERSONAL INVOLVEMENT IN CARE I have reviewed the documentation by the resident/ AALIYAH and I personally participated in the thomas components. I have discussed the case and management of the patient's care. The following comments revise or confirm relevant thomas components of the note. 64 y/o M with extensive medical hx who presented from group home for AMS. In the ED, was [...] improves Urology input appreciated, follow up at [facility] urology Remains off of amiodarone, [...] [facility] 02-20-2025 Note HNO ID: [id number] Author: ELIZABETH SOLER MD Service: Critical Care [...] hematuria The patient initially presented to the [facility] ED on February 16, 2025 after being found unresponsive at his long-term facility. MICU was consulted for septic shock, [...] recommended patient to follow-up with urology at [facility]. Patient was extubated on 02/17 successfully. [...] (Oral) Resp 19 Ht 180.3 cm (5' 11) Wt 96.6 kg (212 lb 15.4 oz) [...] UWBC >25 /HPF* Cardiac:No results for input(s): CKTEST, CKMB, CKMBP, TROPONIN, BNP in the last 168 hours. Microbiology: Positive Micro-30 Days Procedure Component Value Units Date/Time Respiratory Culture and Stain [[id number]] (Abnormal) (Susceptibility) Collected: 02/17/25 1010 Order Status: Completed Specimen: Sputum Updated: 02/20/25 075 Culture, Respiratory Few Normal respiratory gosia present [...] [facility] 02-19-2025 Note HNO ID: [id number] Author: GAYLE SCOTT MD Service: Infectious Disease Author Type: Physician Type: Plan of Care Filed: 02/19/2025 18:36 Note Text: ID Continuing meropenem due to multiple gram-negative's and Enterococcus faecalis in blood and urine culture Gayle Scott MD 02/19/2025 6:36 PM pgr [phone] [facility] 02-19-2025 Telephone encounter Note Needs outpt cysto, pyelograms, bilateral stent change vs removal in 2-3 weeks. [facility] Work Phone: 02-19-2025 Note HNO ID: [id number] Author: RADHA GRAHAM RPh Service: Pharmacy Author [...] inpatient anticoagulation education is needed. Radha Graham [facility] 02-19-2025 Note HNO ID: [id number] Author: ANMOL HERBERT MD Service: Urology Author [...] (Oral) Resp 18 Ht 180.3 cm (5' 11) Wt 96.6 kg (212 lb 15.4 oz) [...] was discussed with the patient or authorized outside medical sales representative. The patient or authorized outside medical sales representative has agreed to proceed with the sensitive examination. Labs and Imaging Studies LABS: BMP: Recent Labs 02/19/25 0419 02/18/25 0420 02/17/25 0225 NA 137 135* 132* K 3.7 3.9 4.7 CHLOR 106 104 104 CO2 21* 20* 17* BUN 36* 37* 34* CREAT 0.64* 1.04 1.90* GLUC 115* 177* 225* CBC: Recent Labs 02/19/25 0419 02/18/25 0420 02/17/25 1009 02/17/25 0225 02/16/25 1922 WBC 9.94 13.39* 14.96* 19.64* 10.29 HB 11.1* 11.3* 13.1 11.9* 11.6* HCT 32.5* 33.9* 41.4 36.6* 34.9* PLT 87* 69* 64* 93* 108* Urinalysis: Specific Mylo, Ur Date Value Ref Range Status 02/16/2025 [...] Final Urine Culture: No results found for: URCUL RADIOLOGY: Reviewed. Assessment/Plan ASSESSMENT AND PLAN: 64 year old male with chronic bilateral stents placed at [facility] in MAY 2024 - no acute surgical intervention - remains off levo - daily labs; cr stable - plan to follow up with [facility] urology for stent removal unless becomes unstable / concern for removal needed sooner, then we would discuss OR inpatient - appreciate ICU care - urology to sign off at this time - please reach out with any questions or concerns Tiffanie Baltazar DO Urology PGY-1 February 19, 2025 10:11 AM [facility] 02-19-2025 Note HNO ID: [id number] Author: ELIZABETH SOLER MD Service: Critical Care [...] hematuria The patient initially presented to the [facility] ED on February 16, 2025 after being found unresponsive at his long-term facility. MICU was consulted for septic shock, [...] recommended patient to follow-up with urology at [facility]. Patient was extubated on 02/17 successfully. [...] this admission. Pt can follow up with [facility] Urology Infectious disease: Discontinue vancomycin and continue meropenem. Objective OBJECTIVE BP 83/53 Pulse 70 Temp 36.5 ?C (97.7 ?F) (Oral) Resp 18 Ht 180.3 cm (5' 11) Wt 96.6 kg (212 lb 15.4 oz) [...] ml LABORATORY: BLOOD GAS: CBC: Recent Labs 02/19/2541802/18/2541902/17/25 1009 02/17/2522402/16/25 1922 [...] -- -- -- 1.2 CMP: Recent Labs 02/19/2541802/18/2541902/17/25224 02/16/25 192 GLUC 115* 177* 225* 131* NA 137 [...] -- 2.3 -- 1.6* URINALYSIS: Recent Labs 02/16/252106 SPGR 1.037* UGLUC Negative UBILI Negative UKET Negative UHB 3+* UPROT 2+* UWBC >25 /HPF* Cardiac:No results for input(s): CKTEST, CKMB, CKMBP, TROPONIN, BNP in the last 168 hours. Microbiology: Positive Micro-30 Days Procedure Component Value Units Date/Time Respiratory Culture and Stain [[id number]] (Abnormal) Collected: 02/17/25 1010 Order Status: Completed Specimen: Sputum Updated: 02/18/25 0916 Culture, Respiratory Few Normal respiratory gosia present Gram Stain Few Mixed oral gosia Rare Polymorphonuclear leukocytes Few Epithelial cells Blood Culture [[id number]] (Abnormal) Collected: 02/16/25 1928 Order Status: Completed Specimen: Blood Updated: 02/18/25 1603 Culture, Blood Culture report of Enterococcus faecalis Comment: Cephalosporins, clindamycin, and TMP-SMX are not effective for the treatment of enterococcal (more content not included)... [facility] 02-19-2025 Note HNO ID: [id number] Author: NOTE, INTERFACE, ? Service: ? Author Type: ? Type: Progress Notes Filed: 02/19/2025 02:55 Note Text: Epic Scheduled Downtime: 02/19/2025 1:00:00 AM to 02/19/2025 2:37:00 AM [facility] 02-18-2025 Note HNO ID: [id number] Author: GAYLE SCOTT MD Service: Infectious Disease [...] and UTI. Spinal cord injury residing at [facility], presented to [facility] 02/16/2025 for unresponsiveness when normally alert [...] that although she was not at the group home she was called and told he [...] [facility] 02[facility]18[facility] Note HNO ID: [id number] Author: ANMOL HERBERT MD Service: Urology Author [...] ?F) Resp 14 Ht 180.3 cm (5' 11) Wt 96.6 kg (212 lb 15.4 oz) [...] Value 02/18/2025 69 11/25/2021 275 Urinalysis: Specific Mylo, Ur Date Value Ref Range Status 02/16/2025 [...] Final Urine Culture: No results found for: URCUL Assessment and Plan ASSESSMENT: 64 year old male with chronic bilateral stents placed at [facility] in MAY 2024 PLAN: - No acute intervention - Given pt improvement on current regimen, no plans for surgery this admission - Pt can follow up with [facility] Urology - Appreciate ICU care Jose Blair MD PGY1 Urology 12:22 PM 02/18/25 [facility] 02-18-2025 Note HNO ID: [id number] Author: JON MCDONALD MD Service: Critical Care Author Type: Physician Type: Progress Notes Filed: 02/18/2025 13:06 Note Text: [facility] STAFF PHYSICIAN NOTE OF PERSONAL INVOLVEMENT [...] with extensive medical hx who presented from group home for AMS. In the ED, was [...] time: 02/18/2025 10:05 AM ICU Code Status History assess/Full code by default: No, active code [...] [facility] 02[facility]18[facility] Note HNO ID: [id number] Author: JON MCDONALD MD Service: Critical Care [...] intubation. The patient initially presented to the [facility] ED on February 16, 2025 after being found unresponsive at his long-term facility, last known well 1700 today INTERVAL [...] this admission. Pt can follow up with [facility] Urology Infectious disease: Discontinue vancomycin and continue meropenem. Objective OBJECTIVE BP 83/58 Pulse 109 Temp 36.6 ?C (97.9 ?F) (Oral) Resp 18 Ht 180.3 cm (5' 11) Wt 95.2 kg (209 lb 14.1 oz) [...] MG 2.3 -- 1.6* URINALYSIS: Recent Labs 02/16/252106 SPGR 1.037* UGLUC Negative UBILI Negative UKET Negative UHB 3+* UPROT 2+* UWBC >25 /HPF* Cardiac:No results for input(s): CKTEST, CKMB, CKMBP, TROPONIN, BNP in the last 168 hours. Microbiology: Positive Micro-30 Days Procedure Component Value Units Date/Time Respiratory Culture and Stain [[id number]] (Abnormal) Collected: 02/17/25 1010 Order Status: Completed Specimen: Sputum Updated: 02/17/25 1328 Gram Stain Few Mixed oral gosia Rare Polymorphonuclear leukocytes Few Epithelial cells Blood Culture [[id number]] (Abnormal) Collected: 02/16/251927 Order Status: Completed Specimen: Blood Updated: 02/17/25 1049 Gram Stain Gram positive cocci in pairs and chains Gram negative bacilli Blood Culture [[id number]] (Abnormal) Collected: 02/16/251921 Order Status: Completed Specimen: [...] [facility] 02-18[facility]25 Note HNO ID: [id number] Author: NOTE, INTERFACE, ? Service: ? Author Type: ? Type: Progress Notes Filed: 02/18/2025 03:47 Note Text: Epic Scheduled Downtime: 02/18/2025 1:00:00 AM to 02/18/2025 3:39:00 AM [facility] 02-17-2025 Note HNO ID: [id number] Author: ELLIOT GOMEZ RN Service: Care Management Author Type: Registered Nurse Type: Care Mgt Initial Assessment Filed: 02/17/2025 13:50 Note Text: CARE MANAGEMENT: ASSESSMENT AND DISCHARGE PLAN SERVICE DATE: February 17, 2025 SERVICE TIME: 1343 PCP: No primary care provider on file. Primary Contact: Extended Emergency Contact Information Primary Emergency Contact: SUMI REYNOLDS Mobile Relation: Daughter Secondary Emergency Contact: Ronald Reynolds Address: [address] [place] [address] Mobile Relation: Brother Admission Status: Inpatient Insurance Provider: [employer]ALIA [employer] MEDICARE Discharge Planning requested by: Per Department Practice Potential Transition Plans Correction Facility/Intermediate Care Facility Advance Directives Current Advance Directive: None Micromatic Hone Operator Attempted to Assist with AD Completion: Yes Action: Education Provided Current Living Arrangements and Support Lives with: Other person(s) Type of Residence: Extended Care Facility Does the patient have to climb stairs at home?: No Care Facility Name: [facility] Support: Children, Other: See Comment ECF staff How do you manage to accomplish the following: Dependent: Ambulation, Bathe/Shower, Meals/Meal Prep, Dress, Going to the bathroom, Medication Management, Transportation to appointments/community Current Services/Equipment Current Post-Acute Service(s): DME Current DME Type: Wheelchair-electric, [place] Lift Discharge Planning Patient Goal(s): General wellness [place] Choice Explained: [place] of [place] Given: No Reason Not Given: No placements necessary Are you interested in bedside delivery of your medications? No Discharge Planning Participant(s): Patient, Children Patient/Family Comments: Caregiver Assessment: Caregiver is ready, willing and able to meet the patient's needs as recommended by the inter-professional team: Yes Name of Caregiver: [facility] Transport at Discharge: Transportation Arrangements: Ambulance Transportation Agency and Phone #:: [facility] ( [facility] ) [phone] / [phone] Needs Prior to Discharge: Needs Prior to Discharge: To Be Determined, OT/PT Evaluation, Discharge Transportation Post-Acute Discharge Plan: Met with patient and daughter Sumi in room. Extubated this morning. 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 Patient is LTC and a bed hold at the facility. Plan is to return to [place] at discharge per daughter. Recommend therapy evals when appropriate. Patient will need precert if skilled is needed on return. Patient will need cot transport at discharge. CM will continue to follow. SIGNATURE: Elliot Gomez RN PATIENT NAME: Anmol Given DATE: February 17, 2025 TIME: 1:43 PM [facility] 02-17-2025 Note HNO ID: [id number] Author: JESSICA CLEMENT RPh Service: Pharmacy Author Type: Pharmacist Type: Plan of Care Filed: 02/21/2025 09:54 Note Text: PHARMACY MEDICATION REVIEW Patient Name: Anmol Given : 1960 The following medications were updated within the DUCK OPERATOR medication list: Medications ADDED to DUCK OPERATOR medication list aspirin, enteric coated (ASPIRIN, ENTERIC [...] hours as needed (heartburn). Medications CHANGED on DUCK OPERATOR medication list Medications REMOVED from DUCK OPERATOR medication list alogliptin benzoate (ALOGLIPTIN ORAL) Adjust [...] E-Cancel Additional comments: Verified medication information with [facility]. Removed medications listed above from med list to match [facility] med list. Added medications listed above to med list to match [facility] med list. Required follow up actions for nursing: None The below information represents the best possible medication history: Yes Medication history completed by: Assisted Living Administrator: Rosa Brice (Cuff Runner) Source of history: assisted/Other [facility] and [facility] records Medication nonadherence identified: No barriers noted Reconciliation completed: Yes Completed by: TREV All DUCK OPERATOR medications addressed by TREV Patient interested in Bedside Delivery Services or using [facility] OP Pharmacy at discharge? No Preferred outpatient pharmacy: [facility] Allergies: No Known Allergies Prior [...] [facility] 02[facility]17[facility] Note HNO ID: [id number] Author: JON MCDONALD MD Service: Critical Care Author Type: Physician Type: Progress Notes Filed: 02/17/2025 13:12 Note Text: [facility] STAFF PHYSICIAN NOTE OF PERSONAL INVOLVEMENT [...] with extensive medical hx who presented from group home for AMS. In the ED, was [...] time: 02/17/2025 9:42 AM ICU Code Status History assess/Full code by default: No, active code [...] [facility] 02-17[facility]2025 Note HNO ID: [id number] Author: JON MCDONALD MD Service: Critical Care [...] intubation. The patient initially presented to the [facility] ED on February 16, 2025 after being found unresponsive at his long-term facility, last known well 1700 today INTERVAL [...] (Oral) Resp 17 Ht 180.3 cm (5' 11) Wt 95.2 kg (209 lb 14.1 oz) [...] -- 4.0 COAG: No results for input(s): APTT, INR in the last 168 hours. CMP: Recent Labs 02/17/2522402/16/251921 GLUC 225* 131* NA 132* 136 K 4.7 4.4 CHLOR 104 105 CO2 17* 17* ANION 11 14 BUN 34* 33* CREAT 1.90* 2.35* ALB 2.5* 2.3* TBILI 0.9 0.9 ALKPHOS 174* 286* AST 41* 31 ALT 21 17 TPROT 6.0* 5.9* MG -- 1.6* URINALYSIS: Recent Labs 02/16/252106 SPGR 1.037* UGLUC Negative UBILI Negative UKET Negative UHB 3+* UPROT 2+* UWBC >25 /HPF* Cardiac:No results for input(s): CKTEST, CKMB, CKMBP, TROPONIN, BNP in the last 168 hours. Microbiology: Positive [...] [facility] 02-16-2025 Note HNO ID: [id number] Author: ROZ MIKE RN Service: ? Author Type: Registered Nurse Type: ED Notes Filed: 02/16/2025 19:48 Note Text: Restraints applied at this time, bilateral upper extremity softs. [facility] 01-31-2025 Instructions Rj Brooks RN - 01/31/2025 2:01 PM EDT WOUND CARE INSTRUCTIONS- Anmol Given Wound location: sacrum & left ischium [place] -Gather supplies -Place down a clean [...] the wound base. - Cover with 4x4 [place] SAP. - Change your dressing daily and [...] following changes to the Wound Center at [phone] or go to the Emergency Department: Fever or chills Increased drainage Green or yellow drainage Foul odor Increased pain Hardness around the wound Redness, warmth or swelling of the surrounding tissue Color change to the wound When contacting the wound center at the ([phone]): Leave a message that includes your full [...] Blood work ordered please go to any [facility] lab. - Please send patient with medication list at next appointment. - Continue aggressive nutritional support to assist wound healing - CAT Scans & MRI need to be scheduled through [facility]. Call [phone].(If applicable) Milad Goodson MD/jason/juan josé documented in this encounter [facility] 01-31-2025 Note HNO ID: [id number] Author: MILAD GOODSON MD Service: ? Author Type: Physician Type: Progress Notes Filed: 02/01/2025 13:02 Note Text: INFECTIOUS DISEASE WOUND CENTER CONSULT PATIENT NAME: Anmol Given DATE OF CONSULTATION: 01/31/2025 REASON FOR CONSULTATION: [...] Chronic pain of right ankle 11/26/2021 Diabetes ([facility]) Elevated CA 19-9 level 08/21/2021 Epidural abscess (HCC) 01/04/2022 MRSA bacteremia 11/27/2021 Neuropathy Nicotine use disorder, F17.2 06/14/2019 Pilonidal cyst with abscess 12/31/2020 Pilonidal cyst without abscess 05/29/2020 Pyelonephritis 11/27/2021 Sciatica Severe protein-calorie malnutrition (HCC) 09/04/2021 Type 2 diabetes mellitus with hyperglycemia, with long-term current use of insulin ([facility]) 01/18/2021 Ureteral stone 11/25/2021 UTI (urinary tract infection) 11/26/2021 Vertebral osteomyelitis ([facility]) 01/04/2022 PAST SURGICAL HISTORY Procedure Laterality Date [...] negative unless stat (more content not included)... [facility] 01-31-2025 History of Present illness Narrative Images [...] in motorized wheelchair Home Care [facility]ing [facility]: [facility] Consent captured for debridement per (Provider) and good until Special Instructions (for example, patient stands at the bedside for exam/dressing): bed Anticoagulant Therapy: aspirin Living Situation (ie... Apartment, house, [facility]): [facility] Who lives with patient: [...] BY PROVIDER: Anesthetic Used: N/A applied per data governance consultant # 1 & 2 Other procedure: Specimen [...] alginate AG Covered and secured with: 4x4 [place] SAP Other: COMPRESSION: N/A DME: Prism order date __ DME: [employer] , PH: [phone] SPECIAL NEEDS: Coordination of care N/A Emotional support N/A OR set-up N/A Orthopaedic Doctor N/A Incontinence needs N/A DISCHARGED in stable condition to: facility in motorized wheelchair PLAN/ORDERS: - Return to the Wound Center to see Milad Goodson MD in 6 weeks. - Blood work ordered please go to any [facility] lab. - Please send patient with medication list at next appointment. - Continue aggressive nutritional support to assist wound healing - CAT Scans & MRI need to be scheduled through [facility]. Call [phone].(If applicable) EDUCATION: The patient/family was instructed how [...] Rj Brooks RN/fm documented in this encounter [facility] 01-31-2025 Note HNO ID: [id number] Author: RJ BROOKS RN Service: ? Author Type: Registered Nurse Type: Progress Notes Filed: 01/31/2025 14:59 Note Text: Nursing Documentation Pertinent Medical History: paraplegia, MRSA, osteomyelitis, UTI, DM2, neuropathy, pyelonephritis, Wound Etiology according to patient: sacrum wound has had for four years per pt Patient arrived via: self in motorized wheelchair Home Care Company/Nursing Facility: [place] [facility] Consent captured for debridement per (Provider) [...] BY PROVIDER: Anesthetic Used: N/A applied per data governance consultant # 1 AND 2 Other procedure: Specimen [...] alginate AG Covered and secured with: 4x4 [place] SAP Other: COMPRESSION: N/A DME: Prism order date __ DME: [employer] , PH: [phone] SPECIAL NEEDS: Coordination of care N/A Emotional support N/A OR set-up N/A Orthopaedic Doctor N/A Incontinence needs N/A DISCHARGED in stable condition to: facility in motorized wheelchair PLAN/ORDERS: - Return to the Wound Center to see Milad Goodson MD in 6 weeks. - Blood work ordered please go to any [facility] lab. - Please send patient with medication list at next appointment. - Continue aggressive nutritional support to assist wound healing - CAT Scans AND MRI need to be scheduled through [facility]. Call [phone].(If applicable) EDUCATION: The patient/family was instructed how [...] [facility] Rj Brooks RN/juan josé [facility] 01-04-2025 History of Present illness Narrative Radiology [...] during this visit? Non-Skid Socks Used, [place] Risk Wristband Applied, Instructed Patient to Call for Help if Needed, and Increased Observations by Caregivers PATIENT GENDER DATA: Assigned male at PATIENT RELEVANT IMPLANT DATA REVIEWED: Yes PATIENT PRESENTS WITH AN IMPLANTABLE OR ATTACHED CARBIDER: No ALLERGIES: Reviewed and unchanged CONTRAST ALLERGY: NO. EXAM: MRI - CONTRAST TYPE: GROUP II PERIPHERAL IV DATA: RAD RN IV RADIOLOGY DEPARTMENT: MR; Exam(s) Completed: Spine: Sacrum/Coccyx SIGNATURE: LIZ Roth PATIENT NAME: Anmol Given DATE: January 04, 2025 TIME: 8:49 AM documented in this encounter [facility] 01-04-2025 Note HNO ID: [id number] Author: AMBROSIO BAUGH RT(R) Service: Radiology Author [...] during this visit? Non-Skid Socks Used, [place] Risk Wristband Applied, Instructed Patient to Call for Help if Needed, and Increased Observations by Caregivers PATIENT GENDER DATA: Assigned male at PATIENT RELEVANT IMPLANT DATA REVIEWED: Yes PATIENT PRESENTS WITH AN IMPLANTABLE OR ATTACHED CARBIDER: No ALLERGIES: Reviewed and unchanged CONTRAST ALLERGY: NO. EXAM: MRI - CONTRAST TYPE: GROUP II PERIPHERAL IV DATA: RAD RN IV RADIOLOGY DEPARTMENT: MR; Exam(s) Completed: Spine: Sacrum/Coccyx SIGNATURE: LIZ Roth PATIENT NAME: Anmol Given DATE: January 04, 2025 TIME: 8:49 AM [facility] 01-04-2025 Note HNO ID: [id number] Author: JOVANY JOHNSTON RN Service: Radiology Author [...] DATE: January 04, 2025 TIME: 8:46 AM [facility] 11-08-2024 History of Present illness Narrative Images [...] months (around 02/05/2025) for in-person visit with [facility]. Faisal Simeon DO 11/08/2024 documented in this encounter [facility] 10-27-2024 Telephone encounter Note Returned call unable to leave message doug was out for the day [facility] 10-27-2024 Miscellaneous Notes Returned call unable to leave message doug was out for the day Name of caller: Doug Contact phone number: [phone] Relationship to Patient: [facility] Provider: Dr. Gillette Practice: [facility] Chief Complaint/Reason for Call: Doug [...] up for pain management//no showed on 08.04.24// Duog from [facility] appt//medicare medicaid Office Name: [facility] Medication Refills need, if any: n/a Medication Name: n/a documented in this encounter [facility] 10-26-2024 Telephone encounter Note Name of caller: Doug Contact phone number: [phone] Relationship to Patient: [facility] Provider: Dr. Gillette Practice: [facility] Chief Complaint/Reason for Call: Doug states she missed a call from the office to schedule the patient and would like a return call. Please review. Best time of day caller can be reached: any Patient advised that office/PCP has 24-48 business hours to return their call: Yes [facility] [employer] 10-26-2024 Telephone encounter Note Called and left message to call to reschedule appointment [facility] 10-25-2024 Telephone encounter Note Name of Caller: Doug Contact Reason for Appointment: Please call to r/s cx appt for 10.26.24 due to weather conditions. Follow up for pain management//no showed on 08.04.24// Doug from [facility] appt//medicare medicaid Office Name: [facility] Medication Refills need, if any: n/a Medication Name: n/a [facility] 09-30-2024 Instructions Faisal Simeon DO - 09/30/2024 1:28 PM EST Completed UDS. Inserted 18Fr 10cc santana Call to schedule appt with Urology Dr Jorge Grimm MD (Surgeon) [address] [place] [address] scan given recurrent blood [...] burning on urination, call the office at [phone] Thursday through Thursday 8:00 AM to 4:30 PM. For emergencies, go the Emergency Room. If you do not already have a follow up appointment scheduled with your physician, call the office at [phone] to schedule one. documented in this encounter [facility] 09-30-2024 History of Present illness Narrative [...] current LUTS. Urinalysis: No results found for: ULEUK, UNITR, UGLUCOSE, URINEBLOOD, UAPP, UCOLOR, UPH, UPROTEIN, USG, UROBILI, URINEBILI Urine Culture (last 1 year) No [...] then PVR was assessed by straight catheterization. 7-Venezuelan urodynamic catheter was placed in the bladder [...] oral post procedural antibiotic was prescribed to [facility] pharmacy. Overall the procedure was [...] Void Residual (mL): 325 mL Storage phase (02040 or 56391/76573) Rate of Fluid infusion, First sensation (Normal [...] was observed only with valsalva Voiding Phase (89610/42805) Maximum flow, Pdet at maximum flow, Volume voided: See scanned report in Media EMG Anal/urinary muscle study patch (34459 -94) EMG inconclusive (connection was lost during study). [...] INTRA-ABDOMINAL VOIDING PRESSURE INSERT CATHETER (SANTANA) SIMPLE [20088] COMPLEX CYSTOMETROGRAM CT RENAL STONE nitrofurantoin monohydrate macrocrystal (Macrobid) 100 MG capsule Patient Instructions Completed UDS. Inserted 18Fr 10cc santana Call to schedule appt with Urology Dr Jorge Grimm MD (Surgeon) [address] [facility] [address] [place] [address] [place] [address] scan given recurrent blood [...] burning on urination, call the office at [phone] Thursday through Thursday 8:00 AM to 4:30 PM. For emergencies, go the Emergency Room. If you do not already have a follow up appointment scheduled with your physician, call the office at [phone] to schedule one. Catheters: Continue indwelling catheterization Fluid intake: maintaining hydration Medications: contrinue flomax for stent/stones Other: See above Return to Clinic: Follow up in about 4 weeks (around 10/28/2024) for video visit (telehealth). Faisal Simeon DO 09/30/2024 documented in this encounter [facility] 08-22-2024 History of Present illness Narrative [...] Resource Strain: Low Risk (04/24/2023) Received from [facility] Overall Financial Resource Strain (CARDIA) Difficulty of Paying Living Expenses: Not hard at all Food Insecurity: No Food Insecurity (05/18/2024) Received from [facility] Hunger Vital Sign Worried About Running Out of Food in the Last Year: Never true Ran Out of Food in the Last Year: Never true Transportation Needs: No Transportation Needs (05/18/2024) Received from [facility] PRAPARE - Transportation Lack of Transportation (Medical): No Lack of Transportation (Non-Medical): No Intimate Partner Violence: Not At Risk (05/18/2024) Received from [facility] Humiliation, Afraid, Rape, and Kick questionnaire Fear [...] Forteo or Tymlos. He is amenable. [facility] [place] is [place]ley to get labs ordered Will check BMP, Vit D, PTH, SPEP Plan for Forteo if labs ok. Follow up 3 months or sooner PRN Giuliano Shultz DO documented in this encounter [facility] 08-12-2024 Telephone encounter Note Spoke with [facility] at Care Facility where pt resides and given the date and time of MOWER OPERATOR video visit with Dr. Shultz at 8:20 am on 08/22/24. This information will be relayed to pt. [facility] 08-12-2024 Miscellaneous Notes Spoke with [facility] at Care Facility where pt resides and given the date and time of MOWER OPERATOR video visit with Dr. Shultz at 8:20 am on 08/22/24. This information will be relayed to pt. documented in this encounter [facility] 08-01-2024 Note Addended by: FAISAL SIMEON on: 08/01/2024 02:57 PM Modules accepted: Level of Service [facility] 08-01-2024 Note Addended by: FAISAL SIMEON on: 08/01/2024 02:57 PM Modules accepted: Level of Service [facility] 08-01-2024 Miscellaneous Notes Addended by: FAISAL SIMEON on: 08/01/2024 02:57 PM Modules accepted: Level of Service documented in this encounter [facility] 08-01-2024 Instructions Howard Dhaliwal MD - 08/01/2024 9:30 AM EDT -Continue PT/OT -Please follow your appoitment with pain team and rheumatology -You are scheduled for bladder study on 09/30/24 -continue scheduled bowel care daily documented in this encounter [facility] 07-31-2024 History of Present illness Narrative [...] following spinal surgery ~2 yrs ago in [place] . In 2019, pt had his first back surgery performed by [facility] which was an interbody fusion. 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 At that point, the hospital took the hardware out and did not replace it with the goal of treating the infection. 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 After the infection was treated, [facility] extended his fusion, decompressed the back, and replaced all hardware. At that time he lost all motor and sensation to his lower extremities. He was independent uptill december 2021 till his last spine surgery two year ago.Since 2021 he is in group home and he changes 5 group home so far. Currently SNF in [facility]. Last seen on 06/13/24 in clinic and recommendations was: -Continue PT/OT -Bowel care: schedule bowel care once/day (either after breakfast or dinner) - using suppository and manual stimulation over commode chair will be more helpful than over bed . - Continue skin care - Follow [facility] service consult( we requested today ) [...] healing- being followed with wound care at group home. -Continued PT/OT in group home -Spine team see him after MRI [...] to display Other SOCIAL Home situation: NA CLERICAL ADJUDICATOR/RN: Currently in assisted - [place] in [facility] DME: Power wheelchair, manual wheelchair Income/BWC: Social [...] Faisal Simeon DO documented in this encounter [facility] 07-27-[address] Grady murphy to Rheumatology. Spoke with patient's brother today who referred me to call [facility], where patient resides, to see about arranging transportation for patient to a Rheumatology appt (not scheduled yet). I spoke with a healthcare worker at [facility] and let her know we can also schedule a video visit with Dr. Hare. She will call me back after discussing with patient. [facility] 07-27-2024 Telephone encounter Note Referral from Dr. Mejia to Rheumatology. Spoke with patient's brother today who referred me to call [facility], where patient resides, to see about arranging transportation for patient to a Rheumatology appt (not scheduled yet). I spoke with a healthcare worker at [place] and let her know we can also schedule a video visit with Dr. Hare. She will call me back after discussing with patient. [facility] 07-27-2024 Miscellaneous Notes Referral from Dr. Mejia to Rheumatology. Spoke with patient's brother today who referred me to call [facility], where patient resides, to see about arranging transportation for patient to a Rheumatology appt (not scheduled yet). I spoke with a healthcare worker at [place] and let her know we can also schedule a video visit with Dr. Hare. She will call me back after discussing with patient. documented in this encounter [facility] 07-13-[address] Mejia referral to Rheumatology for Osteoporosis. Spoke with brother who transports pt to and from appts since pt resides in extended care facility. Brother is available on Fridays to transport pt to appts. Will call him back with options. [facility] 07-13-2024 Telephone encounter Note This is a Dr Mejia referral to Rheumatology for Osteoporosis. Spoke with brother who transports pt to and from appts since pt resides in extended care facility. Brother is available on Fridays to transport pt to appts. Will call him back with options. [facility] 07-13-2024 Miscellaneous Notes This is a Dr Mejia referral to Rheumatology for Osteoporosis. Spoke with brother who transports pt to and from appts since pt resides in extended care facility. Brother is available on Fridays to transport pt to appts. Will call him back with options. documented in this encounter [facility] 06-16-2024 Note Addended by: FAISAL SIMEON on: 06/16/2024 09:13 PM Modules accepted: Level of Service [facility] 06-16-2024 Miscellaneous Notes Addended by: FAISAL SIMEON on: 06/16/2024 09:13 PM Modules accepted: Level of Service documented in this encounter [facility] 06-16-2024 Telephone encounter Note Scheduled appointment [facility] 06-16-2024 Miscellaneous Notes Scheduled appointment Doug is calling in again wanting to rescheduled they can be reached at the office anytime before 3pm. Please advise and thank you LM for Doug to call the office to discuss the pt Name of caller: Doug Contact phone number: [phone] Relationship to Patient: [facility] Provider: [facility]pe Practice: pain management Chief Complaint/Reason for Call: doug is calling in wanting to speak to the main office. Please advise and thank you Best time of day caller can be reached: any Patient advised that office/PCP has 24-48 business hours to return their call: Yes documented in this encounter [facility] 06-16-2024 Telephone encounter Note Doug is calling in again wanting to rescheduled they can be reached at the office anytime before 3pm. Please advise and thank you [facility] 06-15-2024 Telephone encounter Note LM for Doug to call the office to discuss the pt [facility] 06-15-2024 Telephone encounter Note Name of caller: Doug Contact phone number: [phone] Relationship to Patient: [facility] Provider: [facility] Practice: pain management Chief Complaint/Reason for Call: doug is calling in wanting to speak to the main office. Please advise and thank you Best time of day caller can be reached: any Patient advised that office/PCP has 24-48 business hours to return their call: Yes [facility] 06-14-2024 Telephone encounter Note RTC to pt, left voice mail. Vladimir Asher [facility] [phone] [facility] 06-14-2024 Miscellaneous Notes RTC to pt, left voice mail. Vladimir Asher [facility] [phone] documented in this encounter [facility] 06-13-2024 Instructions Howard Dhaliwal MD - 06/13/2024 12:29 PM EDT -Continue PT/OT -Bowel care: schedule bowel care once/day (either after breakfast or dinner) - using suppository and manual stimulation over commode chair will be more helpful than over bed . - Continue skin care - Follow [facility] service consult( we requested today ) for benefits eligibility - Bladder: We ordered today Urodynamic study for your bladder evaluation (to see your bladder status post spinal cord injury) documented in this encounter [facility] 06-13-2024 Instructions Howard Dhaliwal MD - 06/13/2024 12:29 PM EDT -Continue PT/OT -Bowel care: schedule bowel care once/day (either after breakfast or dinner) - using suppository and manual stimulation over commode chair will be more helpful than over bed . - Continue skin care - Follow [facility] service consult( we requested today ) for benefits eligibility - Bladder: We ordered today Urodynamic study for your bladder evaluation (to see your bladder status post spinal cord injury) documented in this encounter [facility] 06-13-2024 History of Present illness Narrative Patient was identified by name and date of . Evelio Grey documented in this encounter [facility] 06-13-2024 History of Present illness Narrative [...] following spinal surgery ~2 yrs ago in [place] . In 2019, pt had his first back surgery performed by [facility] which was an interbody fusion. 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 At that point, the hospital took the hardware out and did not replace it with the goal of treating the infection. 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 After the infection was treated, [facility] extended his fusion, decompressed the [...] their presence. Since 2021 he is in group home and he changes 5 group home so far. Currently SNF in [facility]. He has Ureter stent - recently at [facility] Medication, PMHx/PSHx, Fam Hx, Allergy, Problem List, [...] to display Other SOCIAL Home situation: NA CLERICAL ADJUDICATOR/RN: Currently in assisted - [place] in [facility] DME: Power wheelchair, manual wheelchair Income/BWC: Social [...] values) 04/23/2023 01/06/2022 12/04/2021 11/25/2021 09/06/2021 09/05/2021 09/04/202109/04/2021 2:52 PM 3:05 AM 12:21 PM 4:00 AM 3:54 AM 6:05 AM 6:00 PM 5:43 AM T Bili 0.6 0.3 0.4 0.6 0.4 0.6 0.5 0.4 LIPIDS No lab values to display. 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 1. Paraplegia (HCC) 2. Reflex neurogenic bladder Orders & Meds Signed During This Encounter [facility] SERVICE REQUEST [facility]rod[facility] Patient Instructions -Continue PT/OT -Bowel care: schedule bowel care once/day (either after breakfast or dinner) - using suppository and manual stimulation over commode chair will be more helpful than over bed . - Continue skin care - Follow [facility] service consult( we requested today ) [...] Faisal Simeon DO documented in this encounter [facility] 05-22-2024 Note Formatting of this n ote might be different from the original. Called Carlos Flower's dispatch, new ETA is around 1900. [facility] 05-22-2024 Note Formatting of this n ote might be different from the original. Called Carlos Mehtas dispatch, new ETA is around 1900. [facility] 05-22-2024 Miscellaneous Notes Called Carlos Mehtas dispatch, new ETA is around 1900. CARE COORDINATION DAILY NOTE/UPDATE Discharge Plan: [facility] This TCC was tasked to follow this patient through the weekend assisting with discharge planning. Chart was reviewed. Met with patient at bedside to confirm if he would like to return to [facility]. Patient agreeable to return. Messaged attending and infectious disease to see if patient is able to discharge today. Discharge order placed. Scheduled discharge transportation in [employer], warehouse order picker time confirmed for 05/22 at 1600. [...] determined. Current discharge plan is return to [facility]. Will return skilled only if needed, otherwise he can return under his medicaid benefit per [facility] message. TCC to continue to follow. [facility] request. Await review and response regarding ability to accept. TCC notified. Care Managment Initial Assessment Date: 05/19/2024 Patient Name: Anmol Reynolds : 1960 Patient Information Source of Information: Patient Cognition/Language: WFL - Within Functional Limits Permission given to speak with patient outside medical sales representative/caregiver as indicated: Yes Confirmation of [...] No (n/a) Confirmed with: Living Arrangements Facility: Shelter/[facility]idental Care Facility Name: [facility] Plan to Return: Yes Lives with: Alone, Other (Comment) (at [facility]) Support Systems: Children, Family members, Comments (Other) [...] ECF Discharge Planning Actions: Continue to follow, Correction Facility referral indicated [place] of choice: [place] of choice discussed (choice list not indicated; [...] ID consulted. Patient is a resident at [facility] xfew years. Patient confirmed plan for return. HAT RENOVATOR tasked to place return referral. Anticipate discharge [...] Progressing documented in this encounter [facility] 05-22-2024 Nurse Note Transport arranged for 1600. Belongings packed and paperwork finished. Carlos Montelongo update: 45 minutes. Elly Cormier RN [facility] 05-22-2024 Nurse Note Transport arranged for 1600. Belongings packed and paperwork finished. Carlos Montelongo update: 45 minutes. Elly Cormier RN Santana catheter leaking since last night. Dr. Mahajan paged via secure chat. Catheter to be replaced. Patient informed me that they use a 18 mauritian santana at the group home. A 16 mauritian was previously in. Urology cart was ordered, and a 18 mauritian santana was placed with 500 mL output. Larger balloon, filled with 25 mL. No leaking. Will continue to monitor. Elly Cormier RN documented in this encounter [facility] 05-22-2024 Nurse Note Santana catheter leaking since last night. Dr. Mahajan paged via secure chat. Catheter to be replaced. Patient informed me that they use a 18 mauritian santana at the group home. A 16 mauritian was previously in. Urology cart was ordered, and a 18 mauritian santana was placed with 500 mL output. Larger balloon, filled with 25 mL. No leaking. Will continue to monitor. Elly Cormier RN [facility] 05-22-2024 Note Discharge Summary Anmol Franco Given [...] 6.2* 6.3 PT/INR: No results for input(s): PROTIME, INR in the last 72 hours. CARDIAC ENZYMES: No results for input(s): TROPONINI in the last 72 hours. Procalcitonin: No results found for: PROCAL COVID-19 PCR: No results for input(s): COVID19 in the last 72 hours. Objective: Vitals: BP 128/76 (BP Location: Right arm, Patient Position: Lying) Pulse 70 Temp 36 ?C (96.8 ?F) (Temporal) Resp 16 Ht 6' 3 (1.905 m) Wt 213 lb (96.6 kg) [...] Continuous Continuous M (more content not included)... [facility] 05-22-2024 Hospital course Narrative Images from the [...] 6.2* 6.3 PT/INR: No results for input(s): PROTIME, INR in the last 72 hours. CARDIAC ENZYMES: No results for input(s): TROPONINI in the last 72 hours. Procalcitonin: No results found for: PROCAL COVID-19 PCR: No results for input(s): COVID19 in the last 72 hours. Objective: Vitals: BP 128/76 (BP Location: Right arm, Patient Position: Lying) Pulse 70 Temp 36 C (96.8 F) (Temporal) Resp 16 Ht 6' 3 (1.905 m) Wt 213 lb (96.6 kg) [...] Complexity: follow up within 7-14 calendar days (74063) [] Severe Complexity: follow up within 7 calendar days (15928) FOLLOW UP TESTING, PENDING RESULTS OR REFERRALS [...] PM documented in this encounter [facility] 05-22-2024 Note Hospitalist Progress Note 05/22/2024 Subjective: [...] Net -14 ml LABS: CBC: Recent Labs 05/20/2460505/21/2433505/22/24 0548 WBC 5.5 5.8 6.4 RBC 4.08* 4.04* 4.21* HGB 12.2* 12.4* 12.8* HCT 37.0* 37.5* 38.4* MCV 90.7 92.8 91.2 RDW 15.1* 15.0 15.1* PLT 197 192 209 BMP: Recent Labs 05/20/24 0605/21/24 03305/22/24 0434 NA 134* 136 135 K 4.0 3.9 3.9 CL 109* 109* 107 CO2 21* 18* 22 BUN 10 11 13 CREATININE 0.50* 0.46* 0.54* GLUCOSE 207* 157* 144* CALCIUM 8.5 8.5 8.4 ANIONGAP 4 8 5 LIVER PROFILE: Recent Labs 05/20/24 0605/21/2405/22/24 0434 AST 23 24 25 ALT 22 21 22 BILITOT 0.6 0.5 0.6 ALKPHOS 153* 142* 151* PROT 6.4 6.2* 6.3 PT/INR: No results for input(s): PROTIME, INR in the last 72 hours. CARDIAC ENZYMES: No results for input(s): TROPONINI in the last 72 hours. Procalcitonin: No results found for: PROCAL COVID-19 PCR: No results for input(s): COVID19 in the last 72 hours. Objective: Vitals: BP 128/76 (BP Location: Right arm, Patient Position: Lying) Pulse 70 Temp 36 ?C (96.8 ?F) (Temporal) Resp 16 Ht 6' 3 (1.905 m) Wt 213 lb (96.6 kg) [...] (each=1, panels c (more content not included)... [facility] 05-22-2024 History of Present illness Narrative Hospitalist Progress Note 05/22/2024 Subjective: Admit Date: 05/17/2024 PCP: Tab Dupont Room#: W6-625/W6-409 A Brief Hospital course: Anmol is a [...] 6.2* 6.3 PT/INR: No results for input(s): PROTIME, INR in the last 72 hours. CARDIAC ENZYMES: No results for input(s): TROPONINI in the last 72 hours. Procalcitonin: No results found for: PROCAL COVID-19 PCR: No results for input(s): COVID19 in the last 72 hours. Objective: Vitals: BP 128/76 (BP Location: Right arm, Patient Position: Lying) Pulse 70 Temp 36 C (96.8 F) (Temporal) Resp 16 Ht 6' 3 (1.905 m) Wt 213 lb (96.6 kg) [...] Secondary Emergency Contact: GAILSUMI Mobile Relation: Daughter Bradbma Katia Mahajan MD Division of Hospitalist Medicine [facility]patient Medical Services[facility] Images from the original note were not included. PHYSICAL THERAPY [facility] Initial Evaluation Name/MRN: Anmol Reynolds ([id number]) Evaluation Date: 05/21/2024 Date of : 1960 Admission Date: 05/17/2024 8:25 PM Age: 63 y.o. Room/Bed: [facility] A Discharge Recommendation: ECF without PT (Patient states he may be interested to going to a different ECF in [place]) Equipment Needed: No Assessment IMPRESSION: Patient is [...] on slide board transfers in the past but it was too hard. Patient currently able to roll self and [...] gait and mobility Other reduced mobility Paraplegia ([facility]) Sciatica Spinal stenosis of lumbar region with neurogenic claudication Type 2 diabetes mellitus without complication ([facility]) ([facility]) Urinary calculus, unspecified UTI (urinary tract infection) Past Surgical History: Past Surgical History: Procedure Laterality Date ANKLE SURGERY Right He has a titanium plate to the right ankle KNEE SURGERY Left ACL KNEE SURGERY Left removal of screw LAMINECTOMY Left 10/24/2020 LEFT BILATERAL L2-3-4-5 DECOMPRESSION performed by Opal Vigil MD at [facility] OR ORTHOPEDIC SURGERY Right removal of hardware ankle US PLACE URETAL STENT PERC PRE-EXIST TRACT S&I (HISTORICAL) Bilateral 04/14/2024 Dr. Grimm/Bashir Admission Diagnosis: Patient Active Problem List Diagnosis Date Noted Hypertension 01/06/2017 Hyperglycemia 01/06/2017 Hip sprain 01/06/2017 Anxiety 01/06/2017 Positive blood cultures 05/17/2024 Calculus of ureter 05/06/2024 Bladder calculus 05/05/2024 Pressure injury of coccygeal region, stage 3 ([facility]) 04/20/2024 Septic shock ([facility]) 04/14/2024 Lumbar stenosis with neurogenic claudication 10/24/2020 [...] normal Social/Functional History [facility] Assistive Equipment: wheelchair - electric, hospital [...] Transfers N/T - requires everett lift at [facility] Ambulation Non-ambulatory Outcome Measures AM-PAC How much [...] of Care supervision is transferred to a [facility] Therapy Services Physical Therapist. Goals [...] 6.4 6.2* PT/INR: No results for input(s): PROTIME, INR in the last 72 hours. CARDIAC ENZYMES: No results for input(s): TROPONINI in the last 72 hours. Procalcitonin: No results found for: PROCAL COVID-19 PCR: No results for input(s): COVID19 in the last 72 hours. Objective: Vitals: BP 110/65 (BP Location: Right arm, Patient Position: Sitting) Pulse 65 Temp 36.1 C (97 F) (Temporal) Resp 19 Ht 6' 3 (1.905 m) Wt 213 lb (96.6 kg) [...] Contact: SUMI REYNOLDS Mobile Relation: Daughter Bradbam Dillonsalvadordon MD [place] Division of Hospitalist Medicine Inpatient Medical Services[facility] Images from the original note were not included. [facility] Medical Group - Infectious Diseases NETWORK OPERATIONS CENTER TECHNICIAN Progress Note Subjective: Following for CoNS [...] NGTD 05/16- blood cx- 1/1 CoNS ([facility]) 05/05- tissue from bladder- C parapsilosis, [...] and R psoas abscess (01/2022); treated by [facility] ID Paraplegia w neurogenic bladder s/p [...] if questions or concerns. Rosalinda Fox CNP [facility] - Infectious Diseases 10:11 AM 05/20/2024 Based on diagnoses and management, combination of acute and chronic problems, exacerbations and/or acuity, this visit should be considered to be of moderate complexity. Hospitalist Progress Note 05/20/2024 Subjective: Admit Date: 05/17/2024 PCP: Tab Dupont Room#: W6-428/W6-728 A Brief Hospital course: Anmol is a [...] 6.3 6.4 PT/INR: No results for input(s): PROTIME, INR in the last 72 hours. CARDIAC ENZYMES: No results for input(s): TROPONINI in the last 72 hours. Procalcitonin: No results found for: PROCAL COVID-19 PCR: No results for input(s): COVID19 in the last 72 hours. Objective: Vitals: BP 121/70 (BP Location: Right arm) Pulse 69 Temp 36.3 C (97.3 F) (Temporal) Resp 18 Ht 6' 3 (1.905 m) Wt 213 lb (96.6 kg) [...] MD Division of Hospitalist Medicine Inpatient Medical Services/[facility] Nutrition Assessment Type and Reason for Visit: [...] of note, pt was recently admitted to [facility] 04/14-04/20/2024 with proteus, providencia, and morganella bacteremia [...] On: Kcal/kg Weight Used for Energy Requirements: [place] Weight for Energy Calculation (kg): 89 kg Total Energy Requirements (kcals/day): 5629-7442 kcal/day (25-30 kcal/kg) Weight Used for Protein Requirements: [place] Weight in Kg Used for Protein Requirements: [...] Ordered Anthropometric Measures: Height: 190.5 cm (6' 3) Current Body Weight: 96.6 kg (213 lb) Weight Source: Bed Scale Admission Body Weight: 90.7 kg (200 lb) (stated) Usual Body Weight: (weights in EMR mostly appear stated, 180-200#, noted 04/19- 212#) [place] Body Weight (lbs) (Calculated): 196 lbs [place] Body Weight (Kg) (Calculated): 89 kg BMI [...] Chelita Dominguez RD Contact: Secure chat or *[phone] Images from the original note were not included. [facility] - Infectious Diseases NETWORK OPERATIONS CENTER TECHNICIAN Progress Note Subjective: Following for CoNS [...] NGTD 05/16- blood cx- / CoNS ([facility]) 05/05- tissue from bladder- C parapsilosis, [...] plan d/w Dr. Melchor. Rosalinda Fox CNP [facility] - Infectious Diseases 3:08 PM [...] Net -1015.67 ml LABS: CBC: Recent Labs 05/17/24205705/18/2461905/19/24406 WBC 3.5* 7.7 5.4 RBC 6.51* 4.13* 3.96* HGB 19.6* 12.5* 12.0* HCT 60.0* 38.7* 35.8* MCV 92.2 93.7 90.4 RDW 16.8* 15.6* 14.9 PLT 105* 222 212 BMP: Recent Labs 05/17/24205705/18/2461905/19/24406 NA 136 136 134* K 4.4 4.5 3.4* CL 109* 108* 110* CO2 20* 22 21* BUN 12 13 11 CREATININE 0.68 0.64* 0.44* GLUCOSE 172* 143* 212* CALCIUM 8.7 8.6 8.4 ANIONGAP 6 5 3 LIVER PROFILE: Recent Labs 05/19/24406 AST 29 ALT 19 BILITOT 0.6 ALKPHOS 155* PROT 6.3 PT/INR: No results for input(s): PROTIME, INR in the last 72 hours. CARDIAC ENZYMES: No results for input(s): TROPONINI in the last 72 hours. Procalcitonin: No results found for: PROCAL COVID-19 PCR: No results for input(s): COVID19 in the last 72 hours. Objective: Vitals: BP 129/84 (BP Location: Right arm, Patient Position: Sitting) Pulse 73 Temp 36.6 C (97.8 F) (Temporal) Resp 18 Ht 6' 3 (1.905 m) Wt 200 lb (90.7 kg) [...] MD Division of Hospitalist Medicine Inpatient Medical Services[facility] Hospitalist Progress Note 05/18/2024 Subjective: Admit Date: [...] 6 5 LIVER PROFILE:No results for input(s): AST, ALT, BILITOT, ALKPHOS, PROT in the last 72 hours. No lab exists for component: LABALBU PT/INR: No results for input(s): PROTIME, INR in the last 72 hours. CARDIAC ENZYMES: No results for input(s): TROPONINI in the last 72 hours. Procalcitonin: No results found for: PROCAL COVID-19 PCR: No results for input(s): COVID19 in the last 72 hours. Objective: Vitals: BP 94/65 (Patient Position: Lying) Pulse 69 Temp 36.4 C (97.5 F) (Oral) Resp 18 Ht 6' 3 (1.905 m) Wt 200 lb (90.7 kg) [...] Secondary Emergency Contact: GAILSUMI Mobile Relation: Daughter Bradbam Katia Mahajan MD Division of Hospitalist Medicine Inpatient Medical Services[facility] documented in this encounter [facility] 05-22-2024 Note Formatting of this n ote might be different from the original. CARE COORDINATION DAILY NOTE/UPDATE Discharge Plan: [facility] This TCC was tasked to follow this patient through the weekend assisting with discharge planning. Chart was reviewed. Met with patient at bedside to confirm if he would like to return to [facility]. Patient agreeable to return. Messaged attending and infectious disease to see if patient is able to discharge today. Discharge order placed. Scheduled discharge transportation in [employer], warehouse order picker time confirmed for 05/22 at 1600. Bedside nurse notified of transport and will update patient and family of plan Facility notified of transportation time and discharge documents including After Visit Summary, MAR, LABS, and Vitals were uploaded into careNumerex for review. [facility] 05-22-2024 Note Formatting of this n ote might be different from the original. CARE COORDINATION DAILY NOTE/UPDATE Discharge Plan: [facility] This TCC was tasked to follow this patient through the weekend assisting with discharge planning. Chart was reviewed. Met with patient at bedside to confirm if he would like to return to [facility]. Patient agreeable to return. Messaged attending and infectious disease to see if patient is able to discharge today. Discharge order placed. Scheduled discharge transportation in [employer], warehouse order picker time confirmed for 05/22 at 1600. Bedside nurse notified of transport and will update patient and family of plan Facility notified of transportation time and discharge documents including After Visit Summary, MAR, LABS, and Vitals were uploaded into careNumerex for review. [facility] 05-22-2024 Plan of care note Problem: Knowledge [...] Intake Outcome: Adequate for Discharge [facility] 05-22-2024 Note Problem: Safety Goal: Patient will be injury free during hospitalization Outcome: Progressing Problem: Safety Goal: I will remain free of falls Outcome: Progressing [facility] 05-22-2024 Plan of care note Problem: Safety Goal: Patient will be injury free during hospitalization Outcome: Progressing Problem: Safety Goal: I will remain free of falls Outcome: Progressing [facility] 05-21-2024 Note PHYSICAL THERAPY [facility] Initial Evaluation Name/MRN: Anmol Reynolds ([id number]) Evaluation Date: 05/21/2024 Date of : 1960 Admission Date: 05/17/2024 8:25 PM Age: 63 y.o. Room/Bed: [facility] Discharge Recommendation: ECF without PT (Patient states he may be interested to going to a different ECF in [place]) Equipment Needed: No Assessment IMPRESSION: Patient is [...] on slide board transfers in the past but it was too hard. Patient currently able to roll self and [...] claudication Type 2 diabetes mellitus without complication (CMS/[facility]) ([facility]) Urinary calculus, unspecified UTI (urinary tract infection) Past Surgical History: Past Surgical History: Procedure Laterality Date ANKLE SURGERY Right He has a titanium plate to the right ankle KNEE SURGERY Left ACL KNEE SURGERY Left removal of screw LAMINECTOMY Left 10/24/2020 LEFT BILATERAL L2-3-4-5 DECOMPRESSION performed by Opal Vigil MD at [facility] OR ORTHOPEDIC SURGERY Right removal of hardware ankle US PLACE URETAL STENT PERC PRE-EXIST TRACT S&I (HISTORICAL) Bilateral 04/14/2024 Dr. Grimm/Bashir Admission Diagnosis: Patient Active Problem List Diagnosis Date Noted Hypertension 01/06/2017 Hyperglycemia 01/06/2017 Hip sprain 01/06/2017 Anxiety 01/06/2017 Positive blood cultures 05/17/2024 Calculus of ureter 05/06/2024 Bladder calculus 05/05/2024 Pressure injury of coccygeal region, stage 3 ([facility]) 04/20/2024 Septic shock ([facility]) 04/14/2024 Lumbar stenosis with neurogenic claudication 10/24/2020 Spinal stenosis of lumbar region with neurogenic claudication 10/24/2020 Nicotine use disorder 10/15/2020 Unspecified osteoarthritis, unspecified site 10/15/2020 Pilonidal cyst without abscess 10/15/2020 Diabetes mellitus without complication (CMS/HCC) ([facility]) 10/15/2020 Abnormal finding on EKG 10/15/2020 Other [...] normal Social/Functional History Patient admitted from SNF. ([facility]) Assistive Equipment: wheelchair - electric, hospital [...] Rolling to left: (more content not included)... [facility] 05-21-2024 Note Hospitalist Progress Note 05/21/2024 Subjective: [...] 6.4 6.2* PT/INR: No results for input(s): PROTIME, INR in the last 72 hours. CARDIAC ENZYMES: No results for input(s): TROPONINI in the last 72 hours. Procalcitonin: No results found for: PROCAL COVID-19 PCR: No results for input(s): COVID19 in the last 72 hours. Objective: Vitals: BP 110/65 (BP Location: Right arm, Patient Position: Sitting) Pulse 65 Temp 36.1 ?C (97 ?F) (Temporal) Resp 19 Ht 6' 3 (1.905 m) Wt 213 lb (96.6 kg) [...] and/or studies (ea (more content not included)... [facility] 05-21-2024 Plan of care note Problem: Knowledge [...] Assess Nutritional Intake Outcome: Progressing [facility] 05-20-2024 Plan of care note Problem: Knowledge Deficit Goal: Patient/family/caregiver demonstrates understanding of disease process, treatment plan, medications, and discharge instructions Outcome: Progressing Problem: Potential for Compromised Skin Integrity Goal: Skin Integrity is Maintained or Improved Outcome: Progressing Goal: Nutritional status is improving Outcome: Progressing [facility] 05-20-2024 Note Formatting of this n ote might be different from the original. Chart reviewed. ID following for CoNS postive BC and proteus UTI. Repeat BC pending. +iv cefepime, final course not yet determined. Current discharge plan is return to [facility]. Will return skilled only if needed, otherwise he can return under his medicaid benefit per [facility] message. TCC to continue to follow. T [facility] 05-20-2024 Note Formatting of this n ote might be different from the original. Chart reviewed. ID following for CoNS postive BC and proteus UTI. Repeat BC pending. +iv cefepime, final course not yet determined. [facility] Will return skilled only if needed, otherwise he can return under his medicaid benefit per [facility] message. TCC to continue to follow. [facility] 05-20-2024 Note [facility] - Infectious Diseases NETWORK OPERATIONS CENTER TECHNICIAN Progress Note Subjective: Following for CoNS [...] 2/2 NGTD 05/16- blood cx- 1/1 CoNS ([facility]) 05/05- tissue from bladder- C parapsilosis, [...] or concerns. Rosalinda Fox CNP [facility] - Infectious Diseases 10:11 AM 05/20/2024 Based on diagnoses and management, combination of acute and chronic problems, exacerbations and/or acuity, this visit should be considered to be of moderate complexity. [facility] 05-20-2024 Note Hospitalist Progress Note 05/20/2024 Subjective: [...] 6.3 6.4 PT/INR: No results for input(s): PROTIME, INR in the last 72 hours. CARDIAC ENZYMES: No results for input(s): TROPONINI in the last 72 hours. Procalcitonin: No results found for: PROCAL COVID-19 PCR: No results for input(s): COVID19 in the last 72 hours. Objective: Vitals: BP 121/70 (BP Location: Right arm) Pulse 69 Temp 36.3 ?C (97.3 ?F) (Temporal) Resp 18 Ht 6' 3 (1.905 m) Wt 213 lb (96.6 kg) [...] as 1). ( (more content not included)... [facility] 05-20-2024 Hospital Discharge instructions Elly Cormier RN - 05/20/2024 7:34 AM EDT Images from the original note were not included. Continuity of Care Form Patient Name: Anmol Reynolds : 1960 Admit date: 05/17/2024 Discharge date: 05/22/2024 Code Status Order: Full Code Advance Directives: N Admitting Physician: Heydi Concepcion MD PCP: Tab Dupont Discharging Nurse: Elly Banks RN Discharging Hospital Unit/Room#: W4-947/W3-787 A Discharging Unit Emergency Contact: Extended Emergency [...] DECOMPRESSION performed by Opal Vigil MD at [facility] OR ORTHOPEDIC SURGERY Right removal [...] (Temporal) Resp 18 Ht 1.905 m (6' 3) Wt 96.6 kg (213 lb) SpO2 95% BMI 26.62 kg/m Last documented pain score (0-10 scale): Last Weight: Wt Readings from Last 1 Encounters: 05/19/24 96.6 kg (213 lb) Mental Status: ADELINE Patient Mental Status: oriented and alert IV Access: ADELINE IV Access: None Nursing Mobility/ADLs: Walking Total assistance Transfer Total assistance Bathing Total assistance Dressing Total assistance Toileting Total assistance Feeding Independent Shank Scourer Total assistance Med Delivery yes Wound Care Documentation and Therapy: Wound/Incision 04/14/24 Pressure Injury Sacrum (Active) Site Assessment Red 05/18/241843 [place]-Wound Assessment Red 05/18/241843 Wound Length (cm) 1.5 cm 05/18/241843 Wound Width (cm) 1 cm 05/18/241843 Wound Surface Area (cm^2) 1.5 cm^2 05/18/24 184 Odor None 05/18/24 184 Drainage Amount None 05/18/24 1844 Treatments Site care 05/18/24 184 Primary Dressing [...] Date: 05/17/2024 Discharging to Facility/ Agency Name: [facility] Address: [address] [place] [address] Trip Rider/Manager Copy signature: ICIAN SECTION Name: Anmol Reynolds Prognosis: fair Condition at Discharge: stable Rehab Potential (if transferring to Rehab): fair Recommended Labs or Other Treatments After Discharge: cbc,cmp The individual is being admitted to a nursing facility directly from an [facility] or a unit of a [facility] that is not operated by or licensed by [facility] under section 5119.14 or 5160-3-15.1 5 The individual requires the level of services provided by a nursing facility for the condition for which he or she was treated in the hospital and, Physician Certification: I certify the above information and transfer of Anmol Reynolds is necessary for the continuing treatment of the diagnosis listed and that he requires long-term facility for less than 30 days. Update Admission H&P: No change in H&P PHYSICIAN SIGNATURE: documented in this encounter [facility] 05-19-2024 Note Formatting of this n ote might be different from the original. Return Referral placed to [facility] via [facility] per TCC request. Await review and response regarding ability to accept. TCC notified. [facility] 05-19-2024 Note Formatting of this n ote might be different from the original. Return Referral placed to [facility] via [facility] per TCC request. Await review and response regarding ability to accept. TCC notified. [facility] 05-19-2024 Note Return Referral plac ed to [facility] via [facility] per TCC request. Await review and response regarding ability to accept. TCC notified. [facility] 05-19-2024 Note Formatting of this n ote might be different from the original. Care Managment Initial Assessment Date: 05/19/2024 Patient Name: Anmol Reynolds : 1960 Patient Information Source of Information: Patient Cognition/Language: WFL - Within Functional Limits Permission given to speak with patient outside medical sales representative/caregiver as indicated: Yes Confirmation of Payer with patient/family: Yes Payer Name: Medicare A/B; [place] Medicaid [place]: No Confirmation of Primary Care Physician: Confirmed PCP Name: Tab Nieves MD at facility Seen in last 2 years?: Yes Primary Caregiver: Other (Comment) (facility staff) If assistance needed, confirmed caregiver ready, willing and able to care for patient at discharge: No (n/a) Confirmed with: Living Arrangements Facility: Shelter/[facility] Care Facility Name: [facility] Plan to Return: Yes Lives [...] ECF Discharge Planning Actions: Continue to follow, [place] Facility referral indicated [place]: [place] discussed (choice list not indicated; [...] ID consulted. Patient is a resident at [facility] xfew years. Patient confirmed plan for return. HAT RENOVATOR tasked to place return referral. Anticipate discharge in 2-3 days pending medical stability. Patient will need transport. TCC to continue to follow. Vipin Peter RN [facility] 05-19-2024 Note Formatting of this n ote might be different from the original. Care Managment Initial Assessment Date: 05/19/2024 Patient Name: Anmol Reynolds : 1960 Patient Information Source of Information: Patient Cognition/Language: WFL - Within Functional Limits Permission given to speak with patient outside medical sales representative/caregiver as indicated: Yes Confirmation of [...] No (n/a) Confirmed with: Living Arrangements Facility: Shelter/[facility] Care Facility Name: [facility] Plan to Return: Yes Lives with: Alone, Other (Comment) (at [facility]) Support Systems: Children, Family members, Comments (Other) [...] ECF Discharge Planning Actions: Continue to follow, [facility] Facility referral indicated [place]: [place] of [place] discussed (choice list not indicated; [...] ID consulted. Patient is a resident at [facility] xfew years. Patient confirmed plan for return. HAT RENOVATOR tasked to place return referral. Anticipate discharge in 2-3 days pending medical stability. Patient will need transport. TCC to continue to follow. Vipin Peter RN [facility] 05-19-2024 Note [facility] - Infectious Diseases NETWORK OPERATIONS CENTER TECHNICIAN Progress Note Subjective: Following for CoNS [...] 2/2 NGTD 05/16- blood cx- 1/1 CoNS ([facility]) 05/05- tissue from bladder- C parapsilosis, [...] follow; plan d/w Dr. Melchor. Rosalinda Fox, [facility] - Infectious Diseases 3:08 PM 05/19/2024 Based on diagnoses and management, combination of acute and chronic problems, exacerbations and/or acuity, this visit should be considered to be of moderate complexity. [facility] 05-19-2024 Note Hospitalist Progress Note 05/19/2024 Subjective: Admit Date: 05/17/2024 PCP: AMBROSIO MONROY DO Room#: W6-637/W6-134 A Brief Hospital course: Anmol is a [...] Net -1015.67 ml LABS: CBC: Recent Labs 05/17/24205705/18/2461905/19/247 WBC 3.5* 7.7 5.4 RBC 6.51* 4.13* 3.96* HGB 19.6* 12.5* 12.0* HCT 60.0* 38.7* 35.8* MCV 92.2 93.7 90.4 RDW 16.8* 15.6* 14.9 PLT 105* 222 212 BMP: Recent Labs 05/17/24205705/18/2461905/19/24406 NA 136 136 134* K 4.4 4.5 3.4* CL 109* 108* 110* CO2 20* 22 21* BUN 12 13 11 CREATININE 0.68 0.64* 0.44* GLUCOSE 172* 143* 212* CALCIUM 8.7 8.6 8.4 ANIONGAP 6 5 3 LIVER PROFILE: Recent Labs 05/19/24 0407 AST 29 ALT 19 BILITOT 0.6 ALKPHOS 155* PROT 6.3 PT/INR: No results for input(s): PROTIME, INR in the last 72 hours. CARDIAC ENZYMES: No results for input(s): TROPONINI in the last 72 hours. Procalcitonin: No results found for: PROCAL COVID-19 PCR: No results for input(s): COVID19 in the last 72 hours. Objective: Vitals: BP 129/84 (BP Location: Right arm, Patient Position: Sitting) Pulse 73 Temp 36.6 ?C (97.8 ?F) (Temporal) Resp 18 Ht 6' 3 (1.905 m) Wt 200 lb (90.7 kg) [...] or more new (more content not included)... [facility] 05-18-2024 Plan of care note The patient is Moderately Stable - Low risk of patient condition declining or worsening The patient's goals for the shift include Pain control. The clinical goals for the shift include Patient to remain free of injury for the entirety of the shift. [facility] 05-18-2024 Note Problem: Knowledge D eficit Goal: Patient/family/caregiver demonstrates understanding of disease process, treatment plan, medications, and discharge instructions Outcome: Progressing [facility] 05-18-2024 Plan of care note Problem: Knowledge Deficit Goal: Patient/family/caregiver demonstrates understanding of disease process, treatment plan, medications, and discharge instructions Outcome: Progressing [facility] 05-18-2024 Emergency department Note Pt refusing BG check stating I'm already eating. aware. Ella Zavala RN 05/18/241804 [facility] 05-18-2024 Emergency department Note Pt refusing BG check stating I'm already eating. MD savage. Ella Zavala RN 05/18/241804 Pt refusing BG check at this time. aware. Ella Zavala RN 05/18/24 1237 Pt refusing continuous IV fluids. MD aware Ella Zavala RN 05/18/24 1051 Pt moved onto hospital bed, denies any needs or complaints at this time. Ella Zavala RN 05/18/24 1026 Pharmacy contacted regarding missing oxycodone. Ella Zavala RN 05/18/24 1052 Pt refused BG check/meds at this time stating I just want some sleep. Hospital bed ordered for pt. Meds deferred at this time. Ella Zavala RN 05/18/24 0822 Pt had a bowel movement, this RN & another RN cleaned pt. Carmen Crews RN 05/18/24 0454 Pt transport has been requested Carmen Crews RN 05/18/24 2011 Pt is asleep, w/ unlabored breathing Carmen [...] DECOMPRESSION performed by Opal Vigil MD at [facility] OR ORTHOPEDIC SURGERY Right removal [...] Resource Strain: Low Risk (04/24/2023) [facility] Overall Financial Resource Strain (CARDIA) Difficulty of [...] Homeless in the Last Year: No SCREENINGS [place] Coma Scale Best Eye Response: Spontaneous Best Verbal Response: Oriented Best Motor Response: Follows commands [place] Coma Scale Score: 15 PHYSICAL EXAM ED [...] Culture. Procedure Abnormality Status --------- ------ Complete Urinalysis[[id number]] Abnormal Final result Please view results for these tests on the individual orders. COMPLETE URINALYSIS WITH REFLEX TO CULTURE Narrative: The following orders were created for panel order Urinalysis complete with reflex to Culture. Procedure Abnormality Status --------- ------ Complete Urinalysis[[id number]] Please view results for these tests on [...] Emergency Medicine Provider Terri Simeon PA-C 05/17/24 4865 Emergency Department Encounter [facility] EMERGENCY DEPT Patient: Anmol Reynolds : 1960 [...] 0435 documented in this encounter [facility] 05-18-2024 Emergency department Note Pt refusing BG check at this time. MD savage. Ella Zavala RN 05/18/24 1187 [facility] 05-18-2024 Emergency department Note Pt refusing continuous IV fluids. MD janette Zavala RN 05/18/24 1051 [facility] 05-18-2024 Emergency department Note Pt moved onto hospital bed, denies any needs or complaints at this time. Ella Zavala RN 05/18/24 1026 [facility] 05-18-2024 Emergency department Note Pharmacy contacted regarding missing oxycodone. Ella Zavala RN 05/18/24 1052 [facility] 05-18-2024 Consult note Associated Order (s): IP CONSULT TO INFECTIOUS DISEASES Images from the original note were not included. [facility] Medical [facility] - Infectious Diseases NETWORK OPERATIONS CENTER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 Pt presented to [facility] ED on 05/17/2024 for evaluation of positive blood cultures. Pt was recently admitted to [facility] 04/14-04/20/2024 with proteus, providencia, and morganella bacteremia [...] DECOMPRESSION performed by Opal Vigil MD at [facility] OR ORTHOPEDIC SURGERY Right removal [...] gel 15 g 15 g Oral PRN Hyedi Concepcion MD HYDROmorphone (Dilaudid) tablet 4 mg [...] Resource Strain: Low Risk (04/24/2023) Received from [facility], [facility] Overall Financial Resource Strain (CARDIA) Difficulty of [...] -- -- 05/18/24 0340 104/66 -- -- 18 -- -- -- 05/18/24 0126 95/61 -- -- 69 17 96 % 1.905 m (6' 3) 90.7 kg (200 lb) 05/17/24 2306 118/68 [...] blood cx- 1/ [facility] in clusters ([facility]) 05/05- tissue from bladder- C parapsilosis, [...] cultures from 05/06 Called micro lab at [place]--> blood cx + CoNS (only one set drawn). Hold off on vancomycin for now and follow-up repeat blood cx. If negative, likely CoNS is a contaminant. ID service will continue to follow; plan d/w Dr. Melchor. Rosalinda Fox, SHARIFA [facility] - Infectious Diseases 12:28 PM 05/18/2024 Total time 75 minutes on this day of encounter includes counseling, coordinating plan of care, record and documentation review before and after visit including documentation and time not explicitly included on EMR time stamp for accounting for open encounter. [facility] 05-18-2024 Consult note Associated Order (s): IP CONSULT TO INFECTIOUS DISEASES Images from the original note were not included. [facility] - Infectious Diseases [facility] inpatient Consult Note Reason for Consult: [...] daptomycin with suppressive minocycline. Pt presented to [facility] ED on 05/17/2024 for evaluation of positive blood cultures. Pt was recently admitted to [facility] 04/14-04/20/2024 with proteus, providencia, and morganella bacteremia [...] DECOMPRESSION performed by Opal Vigil MD at [facility] OR ORTHOPEDIC SURGERY Right removal [...] 1 mg 1 mg IntraMUSCular PRN Heydi Concecpion MD glucose oral gel 15 g 15 [...] Resource Strain: Low Risk (04/24/2023) Received from [facility] Overall Financial Resource Strain (CARDIA) Difficulty of [...] 69 17 96 % 1.905 m (6' 3) 90.7 kg (200 lb) 05/17/24 2306 118/68 [...] cx- 2/2 in process 05/16- blood cx- / [facility]PC in clusters ([facility]) 05/05- tissue from bladder- C parapsilosis, [...] cultures from 05/06 Called micro lab at [place]--> blood cx + CoNS (only one set drawn). Hold off on vancomycin for now and follow-up repeat blood cx. If negative, likely CoNS is a contaminant. ID service will continue to follow; plan d/w Dr. Melchor. Rosalinda Fox CNP [facility] - Infectious Diseases 12:28 PM 05/18/2024 Total time 75 minutes on this day of encounter includes counseling, coordinating plan of care, record and documentation review before and after visit including documentation and time not explicitly included on EMR time stamp for accounting for open encounter. documented in this encounter [facility] 05-18-2024 Note Hospitalist Progress Note 05/18/2024 Subjective: [...] 6 5 LIVER PROFILE:No results for input(s): AST, ALT, BILITOT, ALKPHOS, PROT in the last 72 hours. No lab exists for component: LABALBU PT/INR: No results for input(s): PROTIME, INR in the last 72 hours. CARDIAC ENZYMES: No results for input(s): TROPONINI in the last 72 hours. Procalcitonin: No results found for: PROCAL COVID-19 PCR: No results for input(s): COVID19 in the last 72 hours. Objective: Vitals: BP 94/65 (Patient Position: Lying) Pulse 69 Temp 36.4 ?C (97.5 ?F) (Oral) Resp 18 Ht 6' 3 (1.905 m) Wt 200 lb (90.7 kg) [...] unstable/uncontrolled chronic problems/diagnoses (more content not included)... [facility] 05-18-2024 Emergency department Note Pt refused BG check/meds at this time stating I just want some sleep. Hospital bed ordered for pt. Meds deferred at this time. Ella Zavala RN 05/18/24 0822 [facility] 05-18-2024 Emergency department Note Pt had a bowel movement, this RN & another RN cleaned pt. Carmen Crews RN 05/18/24 6910 [facility] 05-18-2024 Emergency department Note Pt transport has been requested Carmen Crews RN 05/18/24 7338 [facility] 05-18-2024 Emergency department Note Pt is asleep, w/ unlabored breathing Carmen Crews RN 05/18/24 0155 Carmen Crews RN 05/18/24 0156 [facility] 05-17-2024 History and physical note Attending History [...] DECOMPRESSION performed by Opal Vigil MD at [facility] OR ORTHOPEDIC SURGERY Right removal [...] Resource Strain: Low Risk (04/24/2023) [facility] Overall Financial Resource Strain (CARDIA) Difficulty of [...] S2+, no m/r/g Abdomen: soft, nontender, BS+ PHOTOCOPYING EQUIPMENT MECHANIC: Awake and alert Ext: pulse 2+ DATA: CBC: Recent Labs 05/17/242057 WBC 3.5* RBC 6.51* HGB 19.6* HCT 60.0* MCV 92.2 RDW 16.8* PLT 105* BMP: Recent Labs 05/17/242057 NA 136 K 4.4 CL 109* CO2 20* BUN 12 CREATININE 0.68 GLUCOSE 172* CALCIUM 8.7 ANIONGAP 6 LIVER PROFILE:No results for input(s): AST, ALT, BILITOT, ALKPHOS, PROT in the last 72 hours. No lab exists for component: LABALBU PT/INR: No results for input(s): PROTIME, INR in the last 72 hours. CARDIAC ENZYMES: No results for input(s): TROPONINI in the last 72 hours. Procalcitonin: No results found for: PROCAL Urine Culture: Results for orders placed or [...] ug/ml COVID-19 PCR: No results for input(s): COVID19 in the last 72 hours. I reviewed: [...] - DO NOT do CPR, intubation] [_] [DNR-MARKETING TRAFFIC MANAGER - Comfort care only] [_] DNR form [...] Heydi Concepcion MD Division of Hospitalist Medicine [facility] [employer] [place] Phone: 05-17-2024 History and physical note Attending [...] DECOMPRESSION performed by Opal Vigil MD at [facility] OR ORTHOPEDIC SURGERY Right removal [...] Resource Strain: Low Risk (04/24/2023) Received from [facility] Overall Financial Resource Strain (CARDIA) Difficulty of [...] S2+, no m/r/g Abdomen: soft, nontender, BS+ PHOTOCOPYING EQUIPMENT MECHANIC: Awake and alert Ext: pulse 2+ DATA: CBC: Recent Labs 05/17/242057 WBC 3.5* RBC 6.51* HGB 19.6* HCT 60.0* MCV 92.2 RDW 16.8* PLT 105* BMP: Recent Labs 05/17/242057 NA 136 K 4.4 CL 109* CO2 20* BUN 12 CREATININE 0.68 GLUCOSE 172* CALCIUM 8.7 ANIONGAP 6 LIVER PROFILE:No results for input(s): AST, ALT, BILITOT, ALKPHOS, PROT in the last 72 hours. No lab exists for component: LABALBU PT/INR: No results for input(s): PROTIME, INR in the last 72 hours. CARDIAC ENZYMES: No results for input(s): TROPONINI in the last 72 hours. Procalcitonin: No results found for: PROCAL Urine Culture: Results for orders placed or [...] ug/ml COVID-19 PCR: No results for input(s): COVID19 in the last 72 hours. I reviewed: [...] - DO NOT do CPR, intubation] [_] [DNR-MARKETING TRAFFIC MANAGER - Comfort care only] [_] DNR form [...] Heydi Concepcion MD Division of Hospitalist Medicine [facility] documented in this encounter [facility] 05-17-2024 Note Attending History an d Physical [...] DECOMPRESSION performed by Opal Vigil MD at [facility] OR ORTHOPEDIC SURGERY Right removal [...] Resource Strain: Low Risk (04/24/2023) Received from [facility] Overall Financial Resource Strain (CARDIA) Difficulty of [...] mg by mo (more content not included)... [facility] 05-17-2024 Physician Emergency department Note EMERGENCY DEPARTMENT [...] DECOMPRESSION performed by Opal Vigil MD at [facility] OR ORTHOPEDIC SURGERY Right removal [...] Resource Strain: Low Risk (04/24/2023) Received from [facility] Overall Financial Resource Strain ([facility]) Difficulty of Paying Living Expenses: Not hard [...] Response: Oriented Best Motor Response: Follows commands [place] Coma Scale Score: 15 PHYSICAL EXAM ED [...] Culture. Procedure Abnormality Status --------- ------ Complete Urinalysis[[id number]] Abnormal Final result Please view results for these tests on the individual orders. COMPLETE URINALYSIS WITH REFLEX TO CULTURE Narrative: The following orders were created for panel order Urinalysis complete with reflex to Culture. Procedure Abnormality Status --------- ------ Complete Urinalysis[[id number]] Please view results for these tests on [...] injection 4 mg (4 mg IntraVENous Given 05/17/24 3573) ED care was supervised by Dr. Guerrero [...] Emergency Medicine Provider Terri Simeon PA-C 05/17/24 4666 [facility] 05-17-2024 Physician Emergency department Note Emergency Department Encounter [facility] EMERGENCY DEPT Patient: Anmol Reynolds : 1960 [...] for clarification.) Rodney Guerrero DO [facility] Rodney Guerrero DO 05/18/24 0435 [place] Phone: 05-15-2024 History of Present illness Narrative HISTORY OF PRESENT ILLNESS Orthopaedic Doctor: not needed - patient preferred language is Barbadian. HIPAA: Verbal permission granted from patient to discuss case, including protected health information, in front of family / friends in room at the time of the evaluation. Anmol Reynolds is a very pleasant 63 year old male here as new patient for a second opinion of MRI results. In 2019, pt had his first back surgery performed by [facility] which was an interbody fusion. 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 At that point, the hospital took the hardware out and did not replace it with the goal of treating the infection. 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 After the infection was treated, [facility] extended his fusion, decompressed the [...] Resource Strain: Low Risk (04/24/2023) Received from [facility] Overall Financial Resource Strain (CARDIA) Difficulty of Paying Living Expenses: Not hard at all Food Insecurity: No Food Insecurity (05/05/2024) Received from [facility] Hunger Vital Sign Worried About Running Out of Food in the Last Year: Never true Ran Out of Food in the Last Year: Never true Transportation Needs: No Transportation Needs (05/05/2024) Received from [facility] PRAPARE - Transportation Lack of Transportation (Medical): No Lack of Transportation (Non-Medical): No Intimate Partner Violence: Not At Risk (05/05/2024) Received from [facility] Humiliation, Afraid, Rape, and Kick questionnaire Fear [...] Dr. Otis Mejia. documented in this encounter [facility] 05-13-2024 Telephone encounter Note Call received back from nurse Pcaker who states blooc cultures were missed, but she will have them done on Thursday when the lab come back to the facility. [facility] 05-13-2024 Miscellaneous Notes Call received back from nurse Packer who states blooc cultures were missed, but she will have them done on Thursday when the lab come back to the facility. Called and spoke to nurse Birdie at [facility] to obtain blood culture results [...] it. documented in this encounter [facility] 05-13-2024 Telephone encounter Note Called and spoke to nurse Birdie at [facility] to obtain blood culture results that were ordered to be done on 05/06/24. She did state she cannot tell if they were done, she will call their lab and have the results faxed to us. If they were not done, she will have them obtained. I did ask that she please let us know what the outcome it. [facility] 05-10-2024 Telephone encounter Note Pt calling requesting provider to follow up regarding MRI. Pt was unable to provide telephone, address or SSN. No information was provided at this time. [facility] 05-10-2024 Miscellaneous Notes Pt calling requesting provider to follow up regarding MRI. Pt was unable to provide telephone, address or SSN. No information was provided at this time. documented in this encounter [facility] 05-06-2024 Nurse Note Patient requested discharge transportation be provided by his brother, who drives a wheelchair accessible van. Spoke with nurse at [facility] who was aware that patient was returning this evening and was agreeable to patient being transported by private vehicle. IV Daiana. Bedside RN called report. Patient transferred via everett lift to personal wheelchair and was escorted down to main entrance where his brother picked him up in van [facility] 05-06-2024 Nurse Note Patient requested discharge transportation be provided by his brother, who drives a wheelchair accessible van. Spoke with nurse at [facility] who was aware that patient was returning this evening and was agreeable to patient being transported by private vehicle. IV David'michelle. Bedside RN called report. Patient transferred via [place]rett lift to personal wheelchair and was escorted down to main entrance where his brother picked him up in van documented in this encounter [facility] 05-06-2024 Note Formatting of this n ote is different from the original. Images from the original note were not included. Referral placed to [facility] Await review and response regarding ability to accept. TCC notified. [facility] 05-06-2024 Note Formatting of this n ote is different from the original. Images from the original note were not included. Referral placed to [facility] Await review and response regarding ability to accept. TCC notified. [facility] 05-06-2024 Miscellaneous Notes Images from the original note were not included. Referral placed to [facility] Await review and response regarding ability to accept. TCC notified. Addendum to earlier note: Pt to be discharged (returned) back to [facility]. Bedside RN aware, SW aware and will plan transport. Referral placed to SNF Return - [facility] via [facility] per TCC request. Await review and response regarding ability to accept. TCC notified. Care Managment Initial Assessment Date: 05/06/2024 Patient Name: Anmol Reynolds : 1960 Patient Information Source of Information: Patient Cognition/Language: WFL - Within Functional Limits Permission given to speak with patient outside medical sales representative/caregiver as indicated: Confirmation of Payer [...] Levels: Facility: Nursing Facility Skilled Facility Name: [facility] Plan to Return: Yes Lives with: Other (Comment) ([facility]) Support Systems: Parent, Family members, Friends/neighbors Activities of Daily Living Ambulation: Total Care Bathing/Dressing: Assistance Elimination/Continence/Toileting: Total Care Feeding: Independent Who Assists with Activities of Daily Living: Snf Staff Instrumental Activities of Daily Living Prescription Coverage: Yes Pharmacy Used: [facility] Medication Management: Transportation/Shopping: Assistance Provider Transportation Mode: Payer provided transport service Needs Assistance with Transportation at Discharge: Yes Meal Preparation: Assistance Provider Meal Prep Assistance Provider Name: [facility] Laundry/Cleaning: Assistance Provider Laundry/Cleaning Assistance Provider Name: [facility] Finances/Bill Paying: Independent Communication: Independent Types of Care Services/Equipment Utilized Care Services: Dialysis Type: Durable Medical Equipment: Wheelchair (standard or power), Hospital Bed, Other (Comment) DME Provider: Santana catheter (chronic) Patient's Goal/Discharge Plan Patient expects to be discharged to: Return to [facility] Discharge Planning Actions: [facility] Facility referral indicated [place] discussed Patient's Choice Rights and [...] for kidney stones bilaterally. Pt is from [facility] and is agreeable to return. Pt states his mother is across the [place] from him. He has a chronic santana and R picc in place. On iv ceftriaxone. Regular diet. Pt had PT eval ordered. Met with pt at bedside; explained role of tcc. Pt wanting to return to [facility] Has chronic santana catheter. He has an electric w/c. Anticipate discharge (return) to [facility] today if medically stable. Anel Lima RN [...] Ebl: Drains 6fr X 24cmJJ Santana 16 Venezuelan Santana catheter Specimen: Bladder calculus for stone [...] removal of the right stent INDICATIONS: Anmol Ryenolds , is a 63 y.o. male who [...] meds. documented in this encounter [facility] 05-06-2024 Hospital Discharge instructions Bianca Rodgers RN [...] Unit/Room#: H-5133/H-5133 A Discharging Unit Phone Number: [phone] Emergency Contact: Extended Emergency Contact Information Primary [...] DECOMPRESSION performed by Opal Vigil MD at [facility] OR ORTHOPEDIC SURGERY Right removal [...] (Temporal) Resp 20 Ht 1.905 m (6' 3) Wt 96.6 kg (213 lb) SpO2 95% [...] assistance Toileting Total assistance Feeding Minimal assistance Shank Scourer Minimal assistance Med Delivery yes Wound Care [...] are sent with patient): wheelchair RN SIGNATURE: {E-signature:27873} CASE MANAGEMENT/SOCIAL WORK SECTION Inpatient Status Date: Discharging to Facility/ Agency Name: Address: Phone: Fax: Dialysis Facility (if applicable) Name: Address: Dialysis Schedule: Phone: Fax: Trip Rider/Manager Copy signature: {E-signature:30195} PHYSICIAN SECTION Name: Anmol Reynolds Prognosis: {Rehab Prognosis:29206} Condition at Discharge: {Patient Condition:34274} Rehab Potential (if transferring to Rehab): {Rehab Prognosis:78249} Recommended Labs or Other Treatments After Discharge: The individual is being admitted to a nursing facility directly from an [facility] or a unit of a [facility] that is not operated by or licensed by [facility] under section 5119.14 or 5160-3-15.1 5 The individual requires the level of services provided by a nursing facility for the condition for which he or she was treated in the hospital and, Physician Certification: I certify the above information and transfer of Anmol Reynolds is necessary for the continuing treatment of the diagnosis listed and that he requires {ADELINE Level of Care:89573} for {greater less than:43679} 30 days. Update Admission H&P: {ADELINE Changes in H&P:29214} PHYSICIAN SIGNATURE: {E-signature:34877} The following attachments cannot be sent through Care Everywhere.Laser Lithotripsy for Kidney Stones Discharge Instructions (Barbadian)How to Care for Your Santana Catheter (Barbadian)documented in this encounter [facility] 05-06-2024 Note Formatting of this n ote might be different from the original. Addendum to earlier note: Pt to be discharged (returned) back to [facility]. Bedside RN aware, SW aware and will plan transport. [facility] 05-06-2024 Note Formatting of this n ote might be different from the original. Addendum to earlier note: Pt to be discharged (returned) back to [facility]. Bedside RN aware, SW aware and will plan transport. [facility] 05-06-2024 Hospital course Narrative Images from the original note were not included. 48 Hour Discharge Summary Note Patient ID: Anmol Reynolds [id number] 63 y.o. 1960 Admit date: 05/05/2024 Discharge [...] Urology documented in this encounter [facility] 05-06-2024 Note Formatting of this n ote might be different from the original. Referral placed to SNF Return - [facility] via [facility] per TCC request. Await review and response regarding ability to accept. TCC notified. Electronically signed by [facility] Juana Villagomezh [facility] 05-06-2024 Note Formatting of this n ote might be different from the original. Referral placed to SNF Return - [facility] via [facility] per TCC request. Await review and response regarding ability to accept. TCC notified. Electronically signed by [facility] Juana Villagomezh [facility] 05-06-2024 Note Formatting of this n ote might be different from the original. Care Managment Initial Assessment Date: 05/06/2024 Patient Name: Anmol Reynolds : 1960 Patient Information Source of Information: Patient Cognition/Language: WFL - Within Functional Limits Permission given to speak with patient outside medical sales representative/caregiver as indicated: Confirmation of Payer with patient/family: Yes Payer Name: Medicare A/B [employer]: No Confirmation of Primary Care Physician: Confirmed PCP Name: Ambrosio Monroy DO Seen in last 2 years?: Yes Primary Caregiver: Self If assistance needed, confirmed caregiver ready, willing and able to care for patient at discharge: Confirmed with: Living Arrangements Current Residence: Number of Floors Number of Entry Steps: Bed/Bath Levels: Facility: Nursing Facility Skilled Facility Name: [facility] Plan to Return: Yes Lives with: Other [...] expects to be discharged to: Return to [facility] Discharge Planning Actions: [facility] Facility referral indicated [place] discussed Patient's Choice Rights and [...] for kidney stones bilaterally. Pt is from [facility] and is agreeable to return. Pt states his mother is across [place]. He has a chronic santana and R picc in place. On iv ceftriaxone. Regular diet. Pt had PT eval ordered. Met with pt at bedside; explained role of tcc. Pt wanting to return to [facility] Has chronic santana catheter. He has an electric w/c. Anticipate discharge (return) to [facility] today if medically stable. Anel Lima RN [facility] 05-06-2024 Note Formatting of this n ote might be different from the original. Care Managment Initial Assessment Date: 05/06/2024 Patient Name: Anmol Reynolds : 1960 Patient Information Source of Information: Patient Cognition/Language: WFL - Within Functional Limits Permission given to speak with patient outside medical sales representative/caregiver as indicated: Confirmation of Payer with patient/family: Yes Payer Name: Medicare A/B [employer]: No Confirmation of Primary Care Physician: Confirmed PCP Name: Ambrosio Monroy, DO Seen in last 2 years?: Yes Primary Caregiver: Self If assistance needed, confirmed caregiver ready, willing and able to care for patient at discharge: Confirmed with: Living Arrangements Current Residence: Number of Floors Number of Entry Steps: Bed/Bath Levels: Facility: Nursing Facility Skilled Facility Name: [facility] Plan to Return: Yes Lives with: Other (Comment) ([facility]) Support Systems: Parent, Family members, Friends/neighbors Activities [...] Assistance Provider Meal Prep Assistance Provider Name: [facility] Laundry/Cleaning: Assistance Provider Laundry/Cleaning Assistance Provider Name: [facility] Finances/Bill Paying: Independent Communication: Independent Types of Care Services/Equipment Utilized Care Services: Dialysis Type: Durable Medical Equipment: Wheelchair (standard or power), Hospital Bed, Other (Comment) DME Provider: Santana catheter (chronic) Patient's Goal/Discharge Plan Patient expects to be discharged to: Return to [facility] Discharge Planning Actions: [facility] Facility referral indicated [place] discussed Patient's Choice Rights and [...] for kidney stones bilaterally. Pt is from [facility] and is agreeable to return. Pt states his mother is [place]. He has a chronic santana and R picc in place. On iv ceftriaxone. Regular diet. Pt had PT eval ordered. Met with pt at bedside; explained role of tcc. Pt wanting to return to [facility] Has chronic santana catheter. He has an electric w/c. Anticipate discharge (return) to [facility] today if medically stable. Anel Lima RN [facility] 05-06-2024 History of Present illness Narrative UROLOGY PROGRESS NOTE PATIENT NAME: Anmol Reynolds DATE OF : 1960 ADMISSION DATE: 05/05/2024 TODAY'S DATE: 05/06/2024 Subjective Pt evalauted at bedside in NAD. JESSY. POD1 of laser lithotripsy and b/l ureteral [...] (98.1 F) (Temporal) Resp 20 Ht 6' 3 (1.905 m) Wt 213 lb (96.6 kg) [...] Urology documented in this encounter [facility] 05-05-2024 Plan of care note The patient [...] address these barriers include none. [facility] 05-05-2024 Note Formatting of this n ote might be different from the original. Belongings returned to patient bedside. Meal tray ordered [facility] 05-05-2024 Note Formatting of this n ote might be different from the original. Belongings returned to patient bedside. Meal tray ordered [facility] 05-05-2024 Note Formatting of this [...] Ebl: Drains 6fr X 24cmJJ Santana 16 Venezuelan Santana catheter Specimen: Bladder calculus for stone [...] removal. Dashawn Grimm MD 05/06/24 5:11 PM [facility] 05-05-2024 Note Formatting of this [...] Ebl: Drains 6fr X 24cmJJ Santana 16 Venezuel[place] Santana catheter Specimen: Bladder calculus for stone [...] removal. Dashawn Grimm MD 05/06/24 5:11 PM [facility] 05-05-2024 Attending History and physical note Images [...] Source Note - Radha Lucas APRN - NETWORK OPERATIONS CENTER TECHNICIAN - 04/27/2024 2:00 PM EDT Images from the original note were not included. Comprehensive Pre Surgical History and Physical ? Name: Anmol Reynolds : 1960 (Age-63 y.o.) Date of Service: Pt seen/examined on 04/27/2024 Procedure Information Date/Time: 05/05/24 1230 Procedures: CYSTOSCOPY (Urethra) - 120 MINS POSSIBLE CYSTOLITHOLAPAXY (Urethra) BILATERAL URETEROSCOPY ASTRID LASER LITHOTRIPSY (Bilateral: Urethra) BILATERAL URETERAL STENT CHANGE (Bilateral: Urethra) Location: [address] Operating Room Surgeons: Dashawn Grimm MD Chief [...] days. Denies prior problems with anesthesia. No [facility] problems with anesthesia Denies c/o chest pain, dizziness, sob, syncope, palpitations, tachycardia, cough, wheezing, nvd, fever or chills Wheelchair bound (paraplegia)- No chest pain or sob with normal activity(upper body activity) Do you have a history of chronic opioid use? oxycodone per pain management ? Denies history of OR, CAD, CHF, CVA, seizures, asthma/copd, WEST, PE/DVT [...] 2 diabetes mellitus without complication (CMS/HCC) (HCC) No date: Urinary calculus, unspecified No date: UTI (urinary tract infection) Past Surgical History: Past Surgical History: No date: ANKLE SURGERY; Right Comment: He has a titanium plate to the right ankle No date: KNEE SURGERY; Left Comment: ACL No date: KNEE SURGERY; Left Comment: removal of screw 10/24/2020: LAMINECTOMY; Left Comment: LEFT BILATERAL L2-3-4-5 DECOMPRESSION performed by Opal Vigil MD at [facility] OR No date: ORTHOPEDIC SURGERY; [...] QT Interval 426 QTC Interval 477 P [place] 10 QRS [place] 28 T Wave [place] 28 [place] Interval 159 Impression Sinus rhythm Electronically Signed On 04-20-2024 15:22:00 EDT by [employer] ECHO and EF:None on file METS __Wheelchair bound (paraplegia)- No chest pain or sob with normal activity (upper body activities) Electronically signed by: Radha Lucas APRN - NETWORK OPERATIONS CENTER TECHNICIAN Date: 04/27/2024 at 3:18 PM [place] Phone: 05-05-2024 History and physical note Images [...] 05/05/24 1:20 PM Source Note - Radha Jamie Lucas, CUPOLA TENDER HELPER - NETWORK OPERATIONS CENTER TECHNICIAN - 04/27/2024 2:00 PM EDT Images from the original note were not included. Comprehensive Pre Surgical History and Physical ? Name: Anmol Reynolds : 1960 (Age-63 y.o.) Date of Service: Pt seen/examined on 04/27/2024 Procedure Information Date/Time: 05/05/24 1230 Procedures: CYSTOSCOPY (Urethra) - 120 MINS POSSIBLE CYSTOLITHOLAPAXY (Urethra) BILATERAL URETEROSCOPY ASTRID LASER LITHOTRIPSY (Bilateral: Urethra) BILATERAL URETERAL STENT CHANGE (Bilateral: Urethra) Location: [facility] OR [address] [place] [address] Operating Room Surgeons: Dashawn Grimm MD Chief [...] days. Denies prior problems with anesthesia. No [facility] problems with anesthesia Denies c/o chest pain, dizziness, sob, syncope, palpitations, tachycardia, cough, wheezing, nvd, fever or chills Wheelchair bound (paraplegia)- No chest pain or sob with normal activity(upper body activity) Do you have a history of chronic opioid use? oxycodone per pain management ? Denies history of OR, CAD, CHF, CVA, seizures, asthma/copd, WEST, PE/DVT [...] date: Other reduced mobility No date: Paraplegia ([facility]) No date: Sciatica No date: Spinal stenosis of lumbar region with neurogenic claudication No date: Type 2 diabetes mellitus without complication ([facility]/HCC) ([facility]) No date: Urinary calculus, unspecified No date: UTI (urinary tract infection) Past Surgical History: Past Surgical History: No date: ANKLE SURGERY; Right Comment: He has a titanium plate to the right ankle No date: KNEE SURGERY; Left Comment: ACL No date: KNEE SURGERY; Left Comment: removal of screw 10/24/2020: LAMINECTOMY; Left Comment: LEFT BILATERAL L2-3-4-5 DECOMPRESSION performed by Opal Vigli MD at [facility] OR No date: ORTHOPEDIC SURGERY; Right Comment: removal of hardware ankle 04/14/2024: PLACE URETAL STENT PERC PRE-EXIST TRACT S&I [...] QT Interval 426 QTC Interval 477 P [place] 10 QRS [place] 28 T Wave [place] 28 WA Interval 159 Impression Sinus rhythm Electronically Signed On 04-20-2024 15:22:00 EDT by Jax Wiggins ECHO and EF:None on file METS __Wheelchair bound (paraplegia)- No chest pain or sob with normal activity (upper body activities) Electronically signed by: Radha Lucas APRN - NETWORK OPERATIONS CENTER TECHNICIAN Date: 04/27/2024 at 3:18 PM documented in this encounter [facility] 05-05-2024 Note Formatting of this n ote might be different from the original. Spoke with the nurse Aguilar from the facility pt came from. The nurse confirmed that pt did not have anything to eat after midnight and only sips of water with morning meds. See MAR for meds. [facility] 05-05-2024 Note Formatting of this n ote might be different from the original. Spoke with the nurse Aguilar from the facility pt came from. The nurse confirmed that pt did not have anything to eat after midnight and only sips of water with morning meds. See MAR for meds. [facility] 05-04-2024 Telephone encounter Note R/S patient for 06/14 at 8:30a, also contacted [facility] to confirm transportation [facility] 05-04-2024 Miscellaneous Notes R/S patient for 06/14 at 8:30a, also contacted [facility] to confirm transportation Name of Caller: Doug Contact Reason for Appointment: Reschedule 04/21/24 appointment Office Name: Interventional Pain Management documented in this encounter [facility] 05-04-2024 Telephone encounter Note Name of Caller: Doug Contact Reason for Appointment: Reschedule 04/21/24 appointment Office Name: Interventional Pain Management [facility] 04-27-2024 Telephone encounter Note Call placed to pt. No answer no VM set up. No return calls from [facility]. Pt is scheduled for PAT today. [facility] 04-27-2024 Miscellaneous Notes Call placed to pt. No answer no VM set up. No return calls from [facility]. Pt is scheduled for PAT today. Call placed to pt to advise of SX information. No answer, unable to LVM. If pt calls back into office please advise of below information or transfer to me. Doctor: JORGE OLIVA (arrive 15 min early): 04/27 @2pm [facility] PAT instructions: Please bring photo ID, insurance [...] DIAGNOSIS: Bladder calculus, bilateral ureteral stones FACILITY: [facility] or [facility] DETAILS: OUTPT ANESTHESIA: GENERAL TIME REQUESTED: 2hr DATE REQUESTED: Must be minimum of 2 weeks from today due to infection SURGERY ORDERS: Already placed by Joe Hammer NP on 04/15/2024 POST OP FOLLOW UP: cysto stent removal 2 wks documented in this encounter [facility] 04-26-2024 Telephone encounter Note Called pt and discussed his MRI L spine results. He has [facility] rehab follow up scheduled. Recommended Spine Surgery opinion. No change in clinical condition from last visit. Vaishali Pierre DO [facility] 04-26-2024 Miscellaneous Notes Called pt and discussed his MRI L spine results. He has SCI rehab follow up scheduled. Recommended Spine Surgery opinion. No change in clinical condition from last visit. Vaishali Pierre DO Called pt again. Staff at the [facility] stated he was unable to come to the phone and asked for call back later in the day. Vaishali Pierre DO Called pt and reached staff, but he was unable to come to the phone. Will try again tomorrow. Vaishali Pierre DO Called pt on his room number but unable to reach him or leave a message. [place] and was able to leave a message with nursing regarding his MRI findings and that I would like to speak with him and recommendations to schedule visit with [facility] rehab and spine surgery. Vaishali Pierre DO Telephoned [place] pt at dinner and front desk receptionist states she cannot pull pt away from dinner. Called pt regarding his MRI, which showed: IMPRESSION: Acute-subacute sacral insufficiency fracture at S2. Postoperative and degenerative changes of the lumbar spine with linear granulation tissue at L2-3 and tethering of the cauda equina suggesting sequelae of chronic arachnoiditis. No evidence of osteomyelitis discitis or epidural abscess. He was currently out of the group home where he lives, but I was [...] to the above findings.He does not have Affin[employer] set up to message. Vaishali Pierre DO documented in this encounter [facility] 04-26-2024 Telephone encounter Note Called pt again. Staff at the SNF stated he was unable to come to the phone and asked for call back later in the day. Vaishali Pierre DO [facility] 04-25-2024 Telephone encounter Note Called pt and reached staff, but he was unable to come to the phone. Will try again tomorrow. Vaishali Pierre DO [facility] 04-25-2024 Telephone encounter Note Call placed to pt to advise of SX information. No answer, unable to LVM. If pt calls back into office please advise of below information or transfer to me. Doctor: JORGE OLIVA (arrive 15 min early): 04/27 @2pm [facility] PAT instructions: Please bring photo ID, insurance [...] 3 days prior to surgery [facility] 04-25-2024 Miscellaneous Notes Call placed to pt to advise of SX information. No answer, unable to LVM. If pt calls back into office please advise of below information or transfer to me. Doctor: JORGE OLIVA (arrive 15 min early): 04/27 @2pm [facility] PAT instructions: Please bring photo ID, insurance [...] DIAGNOSIS: Bladder calculus, bilateral ureteral stones FACILITY: [facility] or [facility] DETAILS: OUTPT ANESTHESIA: GENERAL TIME REQUESTED: 2hr DATE REQUESTED: Must be minimum of 2 weeks from today due to infection SURGERY ORDERS: Already placed by Joe Hammer NP on 04/15/2024 POST OP FOLLOW UP: cysto stent removal 2 wks documented in this encounter [facility] 04-21-2024 Telephone encounter Note Call placed to pt but no answer at this time. Pt does not have VM set up so unable to LVM. No MyChart set up. Will continue to reach out to pt. [facility] 04-20-2024 Miscellaneous Notes Dc to [facility] this evening at 6:30. [facility] messaged the facility with dc time and left a voicemail message for patients brother with dc time and arrangements. Re faxed opat to [phone]. Discharge med list transmitted to return back to [facility] via [facility] per [facility] request. Images from the original note were not included. Care Management Progress Note Chart reviewed. Patient remains on . Discussed patient in rounds. Noted discharge order. Noted patient received PICC placement today. Faxed opat for Ertapenem IV to [phone]. HAT RENOVATOR tasked to send final updates to [facility]. SW tasked to arrange transportation today when ready. Patient will need covid test resulted before leaving hospital. TCC section of ADELINE completed. DC plan: return to [facility], no auth needed. Bed hold. Discharge Milestones and Delays Expected date/time: 04/20/2024 Medically ready since: 04/20/2024 Disposition: [facility] Facility Transport status: No current request Discharge Milestones Place discharge order Complete med reconciliation Case mgmt discharge readiness Clinical Stability Diagnostic Workup Imaging Results Patient Education Complete Expected Discharge History Expected Date/Time Set By Reviewed At 04/20/2024 Otis Mckenzie DO 04/20/2024 11:42 AM 04/18- From [facility]. 04/20- Getting a picc today for IV antibiotics, [facility]. 04/20/2024 LINDSAY Gallardo 04/20/2024 9:34 AM 04/20/2024 LINDSAY Gallardo 04/19/2024 9:13 AM 04/18- From [facility]. 04/20/2024 Chrissie Rodrigues RN 04/19/2024 7:55 AM [...] Sent updated notes to return back [facility] request. Await review and response regarding ability [...] chronic santana in place. Pt is from [facility]. Tasked HAT RENOVATOR to send updated clinicals to facility. Pt is a bedhold, no auth required to return. Will however need a covid test before returning to facility. Discharge plan is [facility] when medically ready. digital content marketing manager to follow and assist as needed. [...] of Information: Patient Name/Contact Information: Ronald Reynolds [phone] brother and daughter Sumi Reynolds Cognition/Language: WFL - Within Functional Limits Permission given to speak with patient outside medical sales representative/caregiver as indicated: Yes Confirmation of Payer with patient/family: Yes Payer Name: medicare and medicaid [place]: No Confirmation of Primary Care Physician: Confirmed PCP Name: house doctor at [facility]-Dr. Dupont Seen in last 2 years?: Yes Primary Caregiver: Other (Comment) If assistance needed, confirmed caregiver ready, willing and able to care for patient at discharge: Yes Confirmed with: staff at f Living Arrangements Current Residence: (ecf) Number of Floors 1 Number of Entry Steps: (level) Bed/Bath Levels: Both first floor Facility: [facility] Facility Name: [facility] Plan to Return: Yes Lives with: (ecf) Support Systems: Family members, Comments (Other) (facility) Activities of Daily Living Ambulation: Total Care (everett lift to wc) Bathing/Dressing: Total Care Elimination/Continence/Toileting: Total Care Feeding: Assistance Who Assists with Activities of Daily Living: group home staff Instrumental Activities of Daily Living Prescription Coverage: Yes Pharmacy Used: [facility] Medication Management: Medication dispenser Who assists with [...] expects to be discharged to: return to [facility] Discharge Planning Actions: Continue to follow Patient's Choice Rights and [employer] and Collaborative Relationships Disclosed as Indicated for Post-Acute Care: Yes Interdisciplinary Team Engagement: Social Work Referral for: Additional Information: Inpatient status from [facility] with sepsis. Urology consulted due [...] of paraplegia and states has been at [facility] for a year and wishes to return upon discharge. Tasked HAT RENOVATOR to place [facility]. He is everett lift to at facility. Will need to monitor for antibiotic needs upon discharge. Did call facility to obtain daughter's phone number for patient and updated primary care nurse with this information. .. Isabel Kirby RN Referral placed to return back to [facility] via [facility] per TCC request. Await review and response [...] pyelogram bilateral stent change Santana insertion Surgeon Dashawn Grimm MD Assist Anesthesia:general lma Ebl: Drains left 6 x 28 double-J stent, right 7 x 26 double-J stent Santana-22 [place] coud catheter Specimen: Complications None; patient tolerated the procedure well. Findings: He is a 63-year-old paraplegic group home resident with a chronic Santana catheter. [...] 6 x 26 stent was passed. 22 [place] coud catheter was placed to straight drain. [...] bladder. The bladder was left full. 22 [place] coud catheter was placed into the bladder. He was awakened and transferred to the recovery room. ICU was consulted for admission due to the hypotension and need for pressors during the case as well as the lactic acidosis. Dashawn Grimm MD 04/14/24 10:49 PM documented in this encounter [facility] 04-20-2024 Hospital course Narrative Images from the original note were not included. Hospitalist Discharge Summary Anmol Michelle Reynolds : 1960 Admit date: 04/14/2024 Discharge [...] CONSULT TO INFECTIOUS DISEASES IP CONSULT TO JET MAN Discharge Instructions: Diet: Adult diet Regular; 5 [...] 6.0* 5.6* PT/INR: No results for input(s): PROTIME, INR in the last 72 hours. CARDIAC ENZYMES: No results for input(s): TROPONINI in the last 72 hours. Procalcitonin: No results found for: PROCAL COVID-19 PCR: No results for input(s): COVID19 in the last 72 hours. Vitals: BP 135/81 (BP Location: Left arm, Patient Position: Sitting) Pulse 84 Temp 36.6 C (97.8 F) (Temporal) Resp 18 Ht 6' 3 (1.905 m) Wt 212 lb 15.4 oz [...] Complexity: follow up within 7-14 calendar days (23481) [x] Severe Complexity: follow up within 7 calendar days (83715) Follow up Testing, Pending results or Referrals [...] frame. Signed: Otis Mckenzie DO Division of Hospitalist Medicine Inpatient Medical Services[facility] 04/20/2024, 11:42 AM Total time Spent on Discharge: 32 minutes documented in this encounter [facility] 04-20-2024 Hospital Discharge instructions Faby Maxwell RN - 04/20/2024 11:42 AM EDT Images from the original note were not included. Continuity of Care Form Patient Name: Anmol Reynolds DOB: 1960 Admit date: 04/14/2024 Discharge date: 04/20/24 [...] DECOMPRESSION performed by Opal Vigil MD at [facility] OR ORTHOPEDIC SURGERY US PLACE [...] cyst without abscess Diabetes mellitus without complication ([facility]/HCC) (HCC) Lumbar radiculopathy Abnormal finding on EKG [...] (97.8 F) (Temporal) Resp 18 Ht 6' 3 (1.905 m) Wt 212 lb 15.4 oz [...] assistance Toileting Total assistance Feeding Minimal assistance Shank Scourer Minimal assistance Med Delivery yes Wound Care [...] Date: 04-14-2024 Discharging to Facility/ Agency Name: [facility] Address: [address] [place] [id number] Dialysis Facility (if applicable) Name: Address: Dialysis Schedule: Phone: Fax: Trip Rider/Manager Copy signature: {E-signature:20543} ICIAN SECTION Name: Anmol Reynolds Prognosis: {Rehab Prognosis:65883} Condition at Discharge: {Patient Condition:63245} Rehab Potential (if transferring to Rehab): excellent Recommended Labs or Other Treatments After Discharge: blood cultures to be obtained on 05/06/24 The individual is being admitted to a nursing facility directly from an [facility] or a unit of a [facility] that is not operated by or licensed by [facility] under section 5119.14 or 5160-3-15.1 5 The individual requires the level of services provided by a nursing facility for the condition for which he or she was treated in the hospital and, Physician Certification: I certify the above information and transfer of Anmol Reynolds is necessary for the continuing treatment of the diagnosis listed and that he requires long-term facility for less than 30 days. Update Admission H&P: No change in H&P PHYSICIAN SIGNATURE: documented in this encounter [facility] 04-20-2024 Nurse Note Patient tolerated procedure well. Transferring back to nursing floor. Patient arrived from [facility], AMOL Enriquez was in to speak with the patient regarding PICC, consent was obtained. Patient was placed supine on exam table prepped and draped in sterile fashion. Telemetry monitors placed, vitals being monitored. documented in this encounter [facility] 04-19-2024 History of Present illness Narrative Nutrition [...] Fluid Accumulation: Mild Extremities (+2 kenroy LE) Magnet Placer Strength: Not Performed Nutrition Assessment: per MD [...] discharge soon. Pt states his appetite is ok reports he doesn't like Ensure is not drinking, declines all supplements at this time. Estimated Daily Nutrient Needs: Energy Requirements Based On: Kcal/kg Weight Used for Energy Requirements: [place] Weight for Energy Calculation (kg): 82 kg Total Energy Requirements (kcals/day): 8171-3086 (28-30) Weight Used for Protein Requirements: [place] Weight in Kg Used for Protein Requirements: [...] 0% Anthropometric Measures: Height: 190.5 cm (6' 3) Current Body Weight: 96.2 kg (212 lb) (wt source not specified) Weight Source: Not Specified Admission Body Weight: 93 kg (205 lb) Usual Body Weight: 83 kg (183 lb) % Weight Change (Calculated): 12.2 [place] Body Weight (lbs) (Calculated): 196 lbs [place] Body Weight (Kg) (Calculated): 89 kg % [place] Body Weight (Calculated): 104.7 % BMI (kg/m2) (Calculated): 26.5 Weight Adjustment For: Paraplegia % Weight Adjustment: 7.5 - Paraplegia Total Adjusted Percentage (Calculated): 7.5 Adjusted [place] Body Weight (lbs) (Calculated): 181.3 lbs Adjusted [place] Body Weight (kg) (Calculated): 82.41 kg Adjusted [...] Continue current diet Zonia Dumont RD Contact: *[phone] or via Secure Chat Images from the original note were not included. [facility] - Infectious Diseases Attending Progress Note Subjective: [...] place, and time. Labs: Recent Labs 04/17/24 03404/18/24 0704/19/24 0428 NA 135 140 138 K 3.2* 3.1* 3.5 CL 107 105 107 CO2 23 27 26 BUN 23* 15 14 CREATININE 0.58* 0.51* 0.44* GLUCOSE 144* 74 153* CALCIUM 7.9* 7.8* 7.9* PROT 5.6* 6.0* 6.0* BILITOT 0.7 0.8 0.6 ALKPHOS 128* 123 119 AST 22 18 19 ALT 22 18 16 Recent Labs 04/17/24 0342 04/18/24 0704/19/24 0428 WBC 7.9 8.4 9.2 HGB 11.5* 12.1* 11.6* HCT 35.4* 36.6* 35.0* PLT 77* 79* 88* LYMPHOPCT 16.8 13* 13* MONOPCT 5.5 8 8 BASOPCT 0.1 -- 1 NEUTROABS 6.0 -- -- Micro: No results for input(s): COVID19 in the last 72 hours. 04/16/2024 0654 04/16/2024 1101 Blood culture Site #1 - Assess for effectiveness of treatment [[id number]] Blood, Venous Preliminary result Component Value Blood Culture Blood culture incubation started P 04/16/2024 0654 04/16/2024 1101 Blood culture Site #2 - Assess for effectiveness of treatment [[id number]] Blood, Venous Preliminary result Component Value Blood Culture Blood culture incubation started P 04/15/2024 1713 04/15/2024 2208 MRSA by PCR [[id number]] (Abnormal) ESwab from Nasal Final result Component Value Staphylococcus aureus Detected Abnormal mecA gene Not Detected 04/15/2024 0103 04/16/2024 1135 Urine culture [[id number]] (Abnormal) Urine, Clean Catch Preliminary result Component Value Urine Culture Normal urogenital gosia present P 50,000-90,000 CFU/mL Providencia stuartii Abnormal P 04/14/2024 1631 04/16/2024 1204 Blood culture Site #1 - Suspected Infection [[id number]] (Abnormal) Blood, Venous Preliminary result Component Value Blood Culture Proteus mirabilis Panic P Providencia stuartii Panic P Morganella morganii Panic P 04/14/2024 1631 04/16/2024 1204 Blood culture Site #2 - Suspected Infection [[id number]] (Abnormal) Blood, Venous Preliminary result Component Value Blood Culture Morganella morganii Panic P For identification and/or sensitivity, refer to culture collected on: 04/14/24 at 16:31, [id number]. This is an edited result. Previous organism was Gram-negative bacilli on 04/15/2024 at 0835 EDT. 04/14/2024 1631 04/15/2024 0828 Blood Culture Identification - Anaerobic [[id number]] (Abnormal) Blood, Venous Final result Component Value Proteus species Detected Abnormal Lines: PIV Radiography/Echo/Other: Procedure Component Value Units Date/Time FL pyelogram retrograde [[id number]] Resulted: 04/14/242216 Order Status: Completed Updated: 04/14/242216 Narrative: There is no interpretation needed for this exam. CT abdomen pelvis wo IV contrast [[id number]] Collected: 04/14/241928 Order Status: Completed Updated: 04/14/241938 Narrative: Patient Name: ANMOL REYNOLDS : 1960 Exam Date/Time: 04/14/2024 19:28 Procedure: CT ABDOMEN PELVIS WO IV CONTRAST Ordering Provider: [facility] Reason For Exam: Sepsis CT ABDOMEN AND [...] 7:37 PM EDT XR chest 1 view [[id number]] Collected: 04/14/241650 Order Status: Completed Updated: 04/14/241652 Narrative: [facility] Name[facility] AN[facility] 1960 [id number] Exam Date/Time: 04/14/2024 16:39 Procedure: XR CHEST 1 VIEW Ordering Provider: [facility] Reason For Exam: sepsis INDICATION: Sepsis. [...] no fungi. Discontinue fluconazole. Continue meropenem through patrol mother, then, tomorrow change to ertapenem (1st dose [...] accounting for open encounter. Hospitalist Progress Note 04/19/[id number]: Please page me ([phone]) for patient care issues. [phone]: Please page [facility] Hospitalist for any issues. Subjective: Admit [...] Type 2 diabetes mellitus without complication (CMS/HCC) ([facility]) LABS: CBC: Recent Labs 04/17/24 0342 04/18/24 0712 04/19/24 0428 WBC 7.9 8.4 9.2 RBC 3.83* 3.95* 3.79* HGB 11.5* 12.1* 11.6* HCT 35.4* 36.6* 35.0* MCV 92.4 92.7 92.3 RDW 14.9 15.0 14.8 PLT 77* 79* 88* BMP: Recent Labs 04/17/24 0342 04/18/24 0712 04/19/24 0428 NA 135 140 138 K 3.2* 3.1* 3.5 CL 107 105 107 CO2 23 27 26 BUN 23* 15 14 CREATININE 0.58* 0.51* 0.44* GLUCOSE 144* 74 153* CALCIUM 7.9* 7.8* 7.9* ANIONGAP 5 7 5 LIVER PROFILE: Recent Labs 04/17/2434104/18/24 0704/19/24 0428 AST 22 18 19 ALT 22 18 16 BILITOT 0.7 0.8 0.6 ALKPHOS 128* 123 119 PROT 5.6* 6.0* 6.0* PT/INR: Recent Labs 04/16/24 1157 PROTIME 10.9 INR 1.0 CARDIAC ENZYMES: No results for input(s): TROPONINI in the last 72 hours. Procalcitonin: No results found for: PROCAL COVID-19 PCR: No results for input(s): COVID19 in the last 72 hours. Objective: Vitals: BP 119/74 (BP Location: Right arm, Patient Position: Lying) Pulse 76 Temp 36 C (96.8 F) (Temporal) Resp 18 Ht 6' 3 (1.905 m) Wt 212 lb 15.4 oz [...] Contact: SUMI REYNOLDS Mobile Relation: Daughter Otis DO [place] Division of Hospitalist Medicine Inpatient Medical Services[facility] PAGER: Epic chat Hospitalist Progress Note 04/18/20246992625-6308: Please page co ([phone]) for patient care issues. [phone]: Please page [facility] night Hospitalist for any issues. Subjective: Admit Date: 04/14/2024 PCP: AMBROSIO MONROY DO Room#: B2-254/B2-254 A Interval History: No overnight issues. Denies chest pain or sob. No abdominal pain, nausea, vomiting. No fevers or chills. Adult diet Regular; 5 carb choices (75 gm/meal) @[id number]@ 24HR INTAKE/OUTPUT: Intake/Output Summary (Last 24 hours) at 04/18/2024 1214 Last data filed at 04/18/2024 0500 Gross per 24 hour Intake 700 ml Output 3850 ml Net -3150 ml Past Medical History: Past Medical History: Diagnosis Date Abscess, perineum Chronic back pain Hip sprain Hyperlipidemia Hypertension Neuropathy Osteoarthritis Sciatica Type 2 diabetes mellitus without complication ([facility]/HCC) ([facility]) LABS: CBC: Recent Labs 04/16/24 0504/17/24 0342 04/18/24 0712 WBC 11.9* 7.9 8.4 RBC 3.91* 3.83* 3.95* HGB 12.0* 11.5* 12.1* HCT 37.2* 35.4* 36.6* MCV 95.1 92.4 92.7 RDW 15.2* 14.9 15.0 PLT 76* 77* 79* BMP: Recent Labs 04/16/24 0504/17/24 03404/18/24 07 NA 137 135 140 K 4.3 [...] 1.0 CARDIAC ENZYMES: No results for input(s): TROPONINI in the last 72 hours. Procalcitonin: No results found for: PROCAL COVID-19 PCR: No results for input(s): COVID19 in the last 72 hours. Objective: Vitals: BP 111/67 (BP Location: Left arm, Patient Position: Lying) Pulse 96 Temp 37.1 C (98.7 F) (Temporal) Resp 16 Ht 6' 3 (1.905 m) Wt 204 lb 1 oz [...] MD Division of Hospitalist Medicine Inpatient Medical Services/[facility]: Epic chat Images from the original note were not included. [facility] - Infectious Diseases Attending Progress Note Subjective: [...] place, and time. Labs: Recent Labs 04/14/24 2318 04/15/24 0407 04/16/24 0515 04/17/24 0342 NA -- 135 137 [...] 1730 04/14/24 2318 04/15/24 0407 04/16/24 0515 04/17/24 0342 WBC 1.5* -- [...] not displayed. Micro: No results for input(s): COVID19 in the last 72 hours. 04/16/2024 0654 04/16/2024 1101 Blood culture Site #1 - Assess for effectiveness of treatment [[id number]] Blood, Venous Preliminary result Component Value Blood Culture Blood culture incubation started P 04/16/2024 0654 04/16/2024 1101 Blood culture Site #2 - Assess for effectiveness of treatment [[id number]] Blood, Venous Preliminary result Component Value Blood Culture Blood culture incubation started P 04/15/2024 1713 04/15/2024 2208 MRSA by PCR [[id number]] (Abnormal) ESwab from Nasal Final result Component Value Staphylococcus aureus Detected Abnormal mecA gene Not Detected 04/15/2024 0103 04/16/2024 1135 Urine culture [[id number]] (Abnormal) Urine, Clean Catch Preliminary result Component Value Urine Culture Normal urogenital gosia present P 50,000-90,000 CFU/mL Providencia stuartii Abnormal P 04/14/2024 1631 04/16/2024 1204 Blood culture Site #1 - Suspected Infection [[id number]] (Abnormal) Blood, Venous Preliminary result Component Value Blood Culture Proteus mirabilis Panic P Providencia stuartii Panic P Morganella morganii Panic P 04/14/2024 1631 04/16/2024 1204 Blood culture Site #2 - Suspected Infection [[id number]] (Abnormal) Blood, Venous Preliminary result Component Value Blood Culture Morganella morganii Panic P For identification and/or sensitivity, refer to culture collected on: 04/14/24 at 16:31, [id number]. This is an edited result. Previous organism was Gram-negative bacilli on 04/15/2024 at 0835 EDT. 04/14/2024 16304/15/2024 0828 Blood Culture Identification - Anaerobic [[id number]] (Abnormal) Blood, Venous Final result Component Value Proteus species Detected Abnormal Lines: PIV Radiography/Echo/Other: Procedure Component Value Units Date/Time FL pyelogram retrograde [[id number]] Resulted: 04/14/242216 Order Status: Completed Updated: 04/14/242216 Narrative: There is no interpretation needed for this exam. CT abdomen pelvis wo IV contrast [[id number]] Collected: 04/14/241928 Order Status: Completed Updated: 04/14/241938 Narrative: Patient Name: ANMOL REYNOLDS : 1960 Exam Date/Time: 04/14/2024 19:28 Procedure: CT ABDOMEN PELVIS WO IV CONTRAST [facility] Reason For Exam: Sepsis CT ABDOMEN AND [...] 7:37 PM EDT XR chest 1 view [[id number]] Collected: 04/14/241650 Order Status: Completed Updated: 04/14/241652 Narrative: [facility] 1960 [id number] Exam Date/Time: 04/14/2024 16:39 Procedure: XR CHEST [...] blood cxs result. Urology op note says Large soft tissue [...] risk of further seeding of the bloodstream. Await final blood and urine cx results. Continue meropenem and fluconazole, discontinue vancomycin. High level complexity medical decision making. Will follow. Total time 50 minutes on this day of encounter includes counseling, coordinating plan of care, record and documentation review before and after visit including documentation and time not explicitly included on EMR time stamp for accounting for open encounter. Hospitalist Progress Note 04/17/[id number]: Please page me ([phone]) for patient care issues. [id number]: Please page [facility] Hospitalist for any issues. Subjective: Admit Date: 04/14/2024 PCP: AMBROSIO MONROY DO Room#: 222-04/222-04 A Interval History: No overnight issues. Denies chest pain or sob. No abdominal pain, nausea, vomiting. No fevers or chills. Adult diet Regular; 5 carb choices (75 gm/meal) @[id number]@ 24HR INTAKE/OUTPUT: Intake/Output Summary (Last 24 hours) at 04/17/2024 0846 Last data filed at 04/17/2024 0621 Gross per 24 hour Intake 1876 ml Output 2535 ml Net -659 ml Past Medical History: Past Medical History: Diagnosis Date Abscess, perineum Chronic back pain Hip sprain Hyperlipidemia Hypertension Neuropathy Osteoarthritis Sciatica Type 2 diabetes mellitus without complication ([facility]) ([facility]) LABS: CBC: Recent Labs 04/15/2440604/16/24 0515 04/17/24 0342 WBC 11.2* 11.9* 7.9 RBC 3.85* 3.91* 3.83* HGB 11.9* 12.0* 11.5* HCT 36.2* 37.2* 35.4* MCV 94.0 95.1 92.4 RDW 14.9 15.2* 14.9 PLT 107* 76* 77* BMP: Recent Labs 04/15/2440604/16/24 0515 04/17/24 034 NA 135 137 135 K 3.6 [...] 04/14/2024 COVID-19 PCR: No results for input(s): COVID19 in the last 72 hours. Objective: Vitals: BP 121/81 (BP Location: Left arm, Patient Position: Lying) Pulse 71 Temp 36.8 C (98.2 F) (Oral) Resp 16 Ht 6' 3 (1.905 m) Wt 206 lb (93.4 kg) [...] MD Division of Hospitalist Medicine Inpatient Medical Services/[facility]: iList chat Images from the original note were not included. [facility] - Infectious Diseases Attending Progress [...] not displayed. Micro: No results for input(s): COVID19 in the last 72 hours. 04/16/2024 0654 04/16/2024 1101 Blood culture Site #1 - Assess for effectiveness of treatment [[id number]] Blood, Venous Preliminary result Component Value Blood Culture Blood culture incubation started P 04/16/2024 0654 04/16/2024 1101 Blood culture Site #2 - Assess for effectiveness of treatment [[id number]] Blood, Venous Preliminary result Component Value Blood Culture Blood culture incubation started P 04/15/2024 1713 04/15/2024 2208 MRSA by PCR [[id number]] (Abnormal) ESwab from Nasal Final result Component Value Staphylococcus aureus Detected Abnormal mecA gene Not Detected 04/15/2024 0103 04/16/2024 1135 Urine culture [[id number]] (Abnormal) Urine, Clean Catch Preliminary result Component Value Urine Culture Normal urogenital gosia present P 50,000-90,000 CFU/mL Providencia stuartii Abnormal P 04/14/2024 1631 04/16/2024 1204 Blood culture Site #1 - Suspected Infection [[id number]] (Abnormal) Blood, Venous Preliminary result Component Value Blood Culture Proteus mirabilis Panic P Providencia stuartii Panic P Morganella morganii Panic P 04/14/2024 1631 04/16/2024 1204 Blood culture Site #2 - Suspected Infection [[id number]] (Abnormal) Blood, Venous Preliminary result Component Value Blood Culture Morganella morganii Panic P For identification and/or sensitivity, refer to culture collected on: 04/14/24 at 16:31, [id number]. This is an edited result. Previous organism was Gram-negative bacilli on 04/15/2024 at 0835 EDT. 04/14/2024 1631 04/15/2024 0828 Blood Culture Identification - Anaerobic [[id number]] (Abnormal) Blood, Venous Final result Component Value Proteus species Detected Abnormal Lines: PIV Radiography/Echo/Other: Procedure Component Value Units Date/Time FL pyelogram retrograde [[id number]] Resulted: 04/14/242216 Order Status: Completed Updated: 04/14/242216 Narrative: There is no interpretation needed for this exam. CT abdomen pelvis wo IV contrast [[id number]] Collected: 04/14/241928 Order Status: Completed Updated: 04/14/241938 Narrative: [facility] Name[facility] ANM[facility] 1960 [id number] Exam Date/Time: 04/14/2024 19:28 Procedure: CT ABDOMEN PELVIS WO IV CONTRAST Ordering Provider: [facility] Reason For Exam: Sepsis CT ABDOMEN AND [...] 7:37 PM EDT XR chest 1 view [[id number]] Collected: 04/14/241650 Order Status: Completed Updated: 04/14/241652 [...] risk of further seeding of the bloodstream. Await final blood and urine cx results. [...] original note were not included. OCCUPATIONAL THERAPY [facility] Name/MRN: Anmol Reynolds ([id number]) Date: 04/16/2024 OT evaluation and treat orders received. PT spoke to patient at bedside. Pt is from [facility] and is paraplegic with everett lift to electric w/c. Pt also requires assist with ADLs. Pt states receives very minimal therapy services at [facility]. Pt has no current acute OT needs and is at baseline LOF. Rec return to [facility]. Chelita Blanc OT ICU Progress Note Name: Anmol Reynolds : 1960(63 y.o.) Date: 04/16/24 Team: MICU Chief Complaint: obstructed santana catheter, septic shock Subjective: Hospital Summary: 63 yoM with history of paraplegia after lumbar surgeries, [facility] resident, history of recurrent UTIs in setting [...] Normal [] Scar/Lesion/Mass Inspection of teeth/lips/gums Dentition: [x][place] Teeth []Dentures Lips/Gums: [x]Intact []Lesion Present Mucosa: []Matlock []Moist [x]Dry Neck: External Appearance Overall Appearance: [...] last 24 hours- BMP: Recent Labs 04/14/24 16004/15/247 04/16/24 0515 NA 137 135 137 K [...] Labs 04/14/242317 PROCAL 27.06* CBC: Recent Labs 04/14/24231704/15/247 04/16/24 0515 WBC 5.4 11.2* 11.9* HGB 12.4* 11.9* 12.0* HCT 39.1* 36.2* 37.2* PLT 117* 107* 76* MCV 97.0 94.0 95.1 RDW 14.8 14.9 15.2* ABGs: Recent Labs 04/14/24 1730 [id number] Room Air Lactic Acid: Recent Labs 04/14/24231704/15/2440604/15/24 [...] COVID19 Legionella Ag: No results found for: LEGIONELLAPN Strep Ag: No results for input(s): STREPPNEUMO in the last 72 hours. Imaging- Reviewed [...] creatinine, and vancomycin levels interfaced automatically to AudiencePoint and data has been analyzed and interpreted. [...] placed. DATE: 04/16/24 TIME: 6:21 AM Carmel oCllins RPh Available via Secure Chat Nutrition Assessment [...] assess Fluid Accumulation: Mild Extremities (+2 ble) Magnet Placer Strength: Not Performed Nutrition Assessment: per MD-pISTORY OF PRESENT ILLNESS: Anmol is a 63 y.o. male with , recurrent UTI at [facility] who presented to the ED today due to bilateral leg pain and clogged santana catheter. Increased pain in butt and back - started this morning. Intermittent, fire pain, all day long. Has had this before [...] WBC 1.5, er case manger-npatient status from [facility] with sepsis. Urology consulted due [...] of paraplegia and states has been at [facility] for a year and wishes [...] On: Kcal/kg Weight Used for Energy Requirements: [place] Weight for Energy Calculation (kg): 82.41 kg Total Energy Requirements (kcals/day): 28-30 or 2307- 24 72 Weight Used for Protein Requirements: [place] Weight in Kg Used for Protein Requirements: [...] Ordered Anthropometric Measures: Height: 190.5 cm (6' 3) Current Body Weight: 93.1 kg (205 lb 4.8 oz) (04/14) Weight Source: Bed Scale Usual Body Weight: 83 kg (183 lb) % Weight Change (Calculated): 12.2 [place] Body Weight (lbs) (Calculated): 196 lbs [place] Body Weight (Kg) (Calculated): 89 kg % [place] Body Weight (Calculated): 104.7 % BMI (kg/m2) (Calculated): 25.7 Weight Adjustment For: Paraplegia % Weight Adjustment: 7.5 - Paraplegia Total Adjusted Percentage (Calculated): 7.5 Adjusted [place] Body Weight (lbs) (Calculated): 181.3 lbs Adjusted [place] Body Weight (kg) (Calculated): 82.41 kg Adjusted [...] Oral Nutrition Supplement Isabel Lieberman RD Contact: [phone] or secure chat ICU Progress Note Name: Anmol Reynolds : 1960(63 y.o.) Date: 04/15/24 Team: MICU [...] 07) Objective: Last Vitals: BP MAP 108/67 (04/15/24815) 80 (04/15/24815) Arterial BP MAP Temp 37.1 C (98.8 F) (04/15/24410) Pulse 101 (04/15/24831) Resp 16 (04/15/24831) SpO2 97 % (04/15/24831) Weight 93.1 kg [...] Normal [] Scar/Lesion/Mass Inspection of teeth/lips/gums Dentition: [x][place] Teeth []Dentures Lips/Gums: [x]Intact []Lesion Present Mucosa: [][place]lock []Moist [x]Dry Neck: External Appearance Overall Appearance: [...] 3.3 LFTs: Recent Labs 04/14/24 1603 04/14/24 1956 04/15/24 0407 AST 25 -- 36 ALT 22 [...] 04/14/242317 PROCAL 27.06* CBC: Recent Labs 04/14/24 1603 04/14/24 1730 04/14/24231704/15/24 0407 WBC 1.5* -- 5.4 11.2* HGB 15.2 13.7 12.4* 11.9* HCT 47.3 -- 39.1* 36.2* PLT 183 -- 117* 107* MCV 95.6 -- 97.0 94.0 RDW 14.8 -- 14.8 14.9 ABGs: Recent Labs 04/14/24 1730 [id number] Room Air Lactic Acid: Recent Labs 04/14/24 [...] COVID19 Legionella Ag: No results found for: LEGIONELLAPN Strep Ag: No results for input(s): STREPPNEUMO in the last 72 hours. Imaging- Reviewed [...] original note were not included. PHYSICAL THERAPY [facility] Name/MRN: Anmol Reynolds ([id number]) Date: 04/15/2024 PT evaluation and treat orders received. Spoke to patient at bedside. Pt is from [facility] and is paraplegic with everett lift to electric w/c. Pt states receives very minimal therapy services at [facility]. Pt has no current acute PT needs and is at baseline LOF. Rec return to [facility]. Nakita Kwan PT Images from the original note were not included. [facility] Urology Inpatient Progress Note 04/15/2024 at 9:33 [...] in patient's urologic status. Joe Hammer, DNP, CUPOLA TENDER HELPER, JORDANP [facility] Urology Subjective: Interval History: No overnight issues. [...] Sciatica Type 2 diabetes mellitus without complication (CMS/[facility]) ([facility]) Objective: Vitals: BP 108/67 Pulse 92 Temp 37.1 C (98.8 F) (Oral) Resp 12 Ht 6' 3 (1.905 m) Wt 205 lb 4.8 oz [...] mg, 400 mg, IntraVENous, q24h, Brad Mujica, CUP[employer] TENDER HELPER - NETWORK OPERATIONS CENTER TECHNICIAN, Stopped at 04/15/24 0254 glucagon (human [...] in 0.9% sodium chloride 250 mL infusion ([id number]-Bnhjun-Phzou) (premix), 2-50 mcg/min, IntraVENous, Continuous, Pedro Luis [...] portions of this chart were dictated using [employer] voice recognition software. It is possible that typos and/or omissions and/or substitutions of words and/or phrases may exist, which may alter the intended meaning of the dictating provider. On this date 04/15/2024 I have spent 35 minutes [id number] time, reviewing previous notes, test results and [...] creatinine, and vancomycin levels interfaced automatically to [employer]iencePoint and data has been analyzed and interpreted. [...] care/mgmt documented in this encounter [facility] 04-17-2024 Consult note Associated Order (s): PHARMACY TO DOSE VANCO Vancomycin therapy has been discontinued by Dr. Moyer on 04-17. Thank you for the consult. Pharmacy signing off for vancomycin dosing. Carmel Collins RPh, Date: 04/17/24 Time: 1:40 PM Associated Order(s): IP CONSULT TO INFECTIOUS DISEASES Images from the original note were not included. [facility] - Infectious Diseases Attending Consult Note Reason [...] Type 2 diabetes mellitus without complication (CMS/HCC) ([facility]) Past Surgical History: Past Surgical History: Procedure Laterality Date ANKLE SURGERY Right He has a titanium plate to the right ankle KNEE SURGERY ACL LAMINECTOMY Left 10/24/2020 LEFT BILATERAL L2-3-4-5 DECOMPRESSION performed by Opal Vigil MD at [facility] OR ORTHOPEDIC SURGERY PLACE URETAL [...] 400 mg 400 mg IntraVENous q24h Brad Mujica, CUPOLA TENDER HELPER - NETWORK OPERATIONS CENTER TECHNICIAN Stopped at 04/15/24 0254 glucagon (human [...] Units SubCUTAneous q6h Brad Mujica APRN - NETWORK OPER[employer] CENTER TECHNICIAN 3 Units at 04/15/24 1334 Insulin [...] in 0.9% sodium chloride 250 mL infusion (Nqt-Qkooag-Xwwfn) (premix) 2-50 mcg/min IntraVENous Continuous Perdo Luis Matos MD Stopped at 04/15/24 1220 [...] Resource Strain: Low Risk (04/24/2023) [facility] Overall Financial Resource Strain (CARDIA) Difficulty of [...] 71 (!) 10 97 % -- -- 04/15/243 -- -- -- 71 (!) 10 97 % -- -- 04/15/241131 129/85 -- -- 75 13 97 % -- -- 04/15/241130 -- -- -- 74 14 97 % -- -- 04/15/241129 -- -- -- 77 18 98 % -- -- 04/15/241128 -- -- -- 73 (!) 10 96 % -- -- 04/15/248 -- -- -- 70 (!) 10 96 % -- -- 04/15/241126 -- -- -- 70 (!) 10 96 % -- -- 04/15/246 -- -- -- 70 (!) 10 96 % -- -- 04/15/241124 -- -- -- 70 (!) 10 96 % -- -- 04/15/241123 -- -- -- 70 (!) 11 96 % -- -- 04/15/24 1123 -- -- -- 71 (!) 11 96 % -- -- 04/15/242 -- -- -- 70 (!) 11 96 % -- -- 04/15/24 1121 -- -- -- 71 (!) 11 96 % -- -- 04/15/240 -- -- -- 70 (!) 11 96 [...] -- 80 12 95 % -- -- 04/15/24 0954 -- -- -- 78 12 96 % -- -- 04/15/24 0953 -- -- -- 81 15 96 % -- -- 04/15/24 0952 -- -- -- 84 (!) 11 97 % -- -- 04/15/24 0951 -- -- -- 85 15 96 % -- -- 04/15/24 0950 -- -- -- 86 13 96 % [...] -- 81 14 95 % -- -- 04/15/24936 -- -- -- 86 16 97 % [...] -- 84 18 96 % -- -- 04/15/2405 -- -- -- 87 17 95 % -- -- 04/15/2404 -- -- -- 85 14 95 % -- -- 04/15/2403 -- -- -- 84 15 95 % -- -- 04/15/24901 -- -- -- 85 17 96 % -- -- 04/15/2401 105/69 -- -- 86 15 95 % -- -- 04/15/24 0900 -- -- -- 82 13 96 % -- -- 04/15/24 0859 -- -- -- 89 14 97 % -- -- 04/15/24 0858 -- -- -- 84 19 94 % -- -- 04/15/24 0857 -- -- -- 90 17 94 % -- -- 04/15/24 0856 -- -- -- 87 17 95 % -- -- 04/15/24 0855 -- -- -- 90 15 95 % -- -- 04/15/24 0854 -- -- -- 89 12 94 % -- -- 04/15/2453 -- -- -- 89 16 94 % -- -- 04/15/2452 -- -- -- 90 18 94 % -- -- 04/15/2451 -- -- -- 91 (!) 11 94 % -- -- 04/15/24 0850 -- -- -- 92 12 94 % -- -- 04/15/24 0849 -- -- -- 91 15 94 % -- -- 04/15/2448 -- -- -- 89 14 93 % -- -- 04/15/2447 -- -- -- 89 15 94 % -- -- 04/15/24 0846 -- -- -- 87 14 94 % -- -- 04/15/24 0845 -- -- -- 90 12 95 % -- -- 04/15/24 0844 -- -- -- 88 15 95 % -- -- 04/15/24 0843 -- -- -- 91 16 94 % [...] -- 86 12 95 % -- -- 04/15/2417 -- -- -- 86 12 95 % [...] -- 87 12 94 % -- -- 04/15/24 08 -- -- -- 86 12 95 % -- -- 04/15/24 0806 -- -- -- 88 13 95 % -- -- 04/15/24 0805 -- -- -- 87 13 95 % -- -- 04/15/2404 -- -- -- 87 (!) 11 95 % -- -- 04/15/24 0803 -- -- -- 86 12 95 % -- -- 04/15/2402 -- -- -- 87 12 95 % [...] 86 13 95 % -- -- 04/15/24 0751 -- -- -- 87 13 95 % [...] -- 88 14 95 % -- -- 04/15/2428 -- -- -- 91 15 95 % -- -- 04/15/24726 -- -- -- 88 13 95 % -- -- 04/15/2426 -- -- -- 85 14 95 % [...] -- 88 13 92 % -- -- 07/12/24 0701 (!) 63/49 -- -- 90 13 [...] 121 (!) 30 96 % -- -- 04/14/242229 101/61 -- -- 107 26 94 % -- -- 04/14/242214 94/72 -- -- 107 24 97 % -- -- 04/14/242204 88/64 -- -- 101 (!) 10 96 % -- -- 04/14/242156 107/80 37 C (98.6 F) -- 80 [...] 121 20 99 % 1.905 m (6' 3) 93.1 kg (205 lb 4.8 oz) 04/14/24 [...] 1 -- Micro: No results for input(s): COVID19 in the last 72 hours. 04/15/2024 0103 04/15/2024 0107 Urine culture [[id number]] Urine, Clean Catch In process Component Value No component results 04/14/2024 1631 04/15/2024 0835 Blood culture Site #1 - Suspected Infection [[id number]] (Abnormal) Blood, Venous Preliminary result Component Value Blood Culture Gram-negative bacilli Panic P 04/14/2024 1631 04/15/2024 0835 Blood culture Site #2 - Suspected Infection [[id number]] (Abnormal) Blood, Venous Preliminary result Component Value Blood Culture Gram-negative bacilli Panic P 04/14/2024 1631 04/15/2024 0828 Blood Culture Identification - Anaerobic [[id number]] (Abnormal) Blood, Venous Final result Component Value Proteus species Detected Abnormal Lines: PIV Radiography/Echo/Other: CT abdomen pelvis wo IV contrast [[id number]] Collected: 04/14/241928 Order Status: Completed Updated: 04/14/241938 Narrative: [facility] Name[facility] 1960 [id number] Exam Date/Time: 04/14/2024 19:28 Procedure: CT ABDOMEN PELVIS WO IV CONTRAST Ordering Provider: [facility] Reason For Exam: Sepsis CT ABDOMEN AND [...] 7:37 PM EDT XR chest 1 view [[id number]] Collected: 07/11/24 1651 Order Status: Completed Updated: 04/14/241652 Narrative: Patient Name: ANMOL REYNOLDS : 1960 [facility]#: [id number] Exam Date/Time: 04/14/2024 16:39 Procedure: XR CHEST [...] cxs in AM. Urology op note says Large soft tissue [...] risk of further seeding of the bloodstream. Await urine cx result. H/o MRSA infection. [...] open encounter. Associated Order(s): IP CONSULT TO JET MAN This patient is not a new diabetic [...] associated supplies are needed. Thank you. Karlos PAVON,BSN,[facility] Images from the original note were not included. Pharmacy Managed Vancomycin Dosing Service Consult Note Consult Date: 04/14/24 Patient Name: Anmol Reynolds Allergies: Patient has no known allergies. Age: 63 y.o. Sex: male Estimated body mass index is 25.66 kg/m as calculated from the following: Height as of this encounter: 1.905 m (6' 3). Weight as of this encounter: 93.1 kg [...] creatinine, and vancomycin levels interfaced automatically to [employer]Point and data has been analyzed and interpreted. [...] er due to clogged santana. Data Afebrile [id number] Pulse-120 Creat-1.24 Co2-19 Lactic 5.1>>3.9 Wbc 1.5 [...] DECOMPRESSION performed by Opal Vigil MD at [facility] OR ORTHOPEDIC SURGERY ALLERGIES: No [...] Resource Strain: Low Risk (04/24/2023) Received from [facility] Overall Financial Resource Strain (CARDIA) Difficulty of Paying Living Expenses: Not hard at all Food Insecurity: No Food Insecurity (04/24/2023) Received from [facility] Hunger Vital Sign Worried About Running Out of Food in the Last Year: Never true Ran Out of Food in the Last Year: Never true Transportation Needs: No Transportation Needs (04/24/2023) Received from [facility] PRAPARE - Transportation Lack of Transportation (Medical): No Lack of Transportation (Non-Medical): No Physical Activity: Not on file Stress: Not on file Social Connections: Not on file Intimate Partner Violence: Not on file Housing Stability: High Risk (04/24/2023) Received from [facility] Housing Stability Vital Sign Unable to Pay for Housing in the Last Year: No Number of Places Lived in the Last Year: 4 In the last 12 months, was there a time when you did not have a steady place to sleep or slept in a jail (including now)?: No Review of Systems Constitutional: [...] 97 % 98 % Height (in) 6' 3 (1.905 m) 6' 3 (1.905 m) 6' 3 (1.905 m) Weight (lb) 183 180 205.3 [...] @LASTUA@ Urine Culture: No components found for: LABURIN RADIOLOGY: === 04/14/24 === CT ABDOMEN PELVIS [...] Internal Medicine: MICU Initial Consult Name: Anmol Reynolds : 1960(63 y.o.) Date: 04/14/24 Attending: Dr. Hooker Subjective: Chief Complaint: UTI HPI: This is a 63 year old paraplegic patient, history of recurrent UTI at [facility] who presented to the ED today due [...] Sciatica Type 2 diabetes mellitus without complication (CMS/[facility]) ([facility]) Past Surgical History: Procedure Laterality Date ANKLE SURGERY Right He has a titanium plate to the right ankle KNEE SURGERY ACL LAMINECTOMY Left 10/24/2020 LEFT BILATERAL L2-3-4-5 DECOMPRESSION performed by Opal Vigil MD at [facility] OR ORTHOPEDIC SURGERY No family [...] Resource Strain: Low Risk (04/24/2023) Received from [facility] Overall Financial Resource Strain (CARDIA) Difficulty of Paying Living Expenses: Not hard at all Food Insecurity: No Food Insecurity (04/24/2023) Received from [facility] Hunger Vital Sign Worried About Running Out of Food in the Last Year: Never true Ran Out of Food in the Last Year: Never true Transportation Needs: No Transportation Needs (04/24/2023) Received from [facility] PRAPARE - Transportation Lack of Transportation (Medical): No Lack of Transportation (Non-Medical): No Physical Activity: Not on file Stress: Not on file Social Connections: Not on file Intimate Partner Violence: Not on file Housing Stability: High Risk (04/24/2023) Received from [facility] Housing Stability Vital Sign Unable to Pay for Housing in the Last Year: No Number of Places Lived in the Last Year: 4 In the last 12 months, was there a time when you did not have a steady place to sleep or slept in a jail (including now)?: No No Known Allergies Prior [...] (Oral) Resp 20 Ht 1.905 m (6' 3) Wt 93.1 kg (205 lb 4.8 oz) [...] Normal [] Scar/Lesion/Mass Inspection of teeth/lips/gums Dentition: [][place] Teeth []Dentures Lips/Gums: []Intact []Lesion Present Mucosa: [][place] [x]Moist []Dry Neck: External Appearance Overall Appearance: [...] GLUCOSE 259* Procal: No results for input(s): PROCAL in the last 72 hours. CBC: Recent Labs 04/14/24 1603 04/14/24 1730 WBC 1.5* -- HGB 15.2 13.7 HCT 47.3 -- PLT 183 -- MCV 95.6 -- RDW 14.8 -- ABGs: Recent Labs 04/14/24 1730 [id number] Room Air Lactic Acid: Recent Labs 04/14/24 1603 LACTATE 5.1* INR: No results for input(s): INR in the last 72 hours. Cardiac Injury Profile: No results for input(s): CKTOTAL, CKMB, TROPONINI in the last 72 hours. Labs in [...] COVID19 Legionella Ag: No results found for: LEGIONELLAPN Strep Ag: No results for input(s): STREPPNEUMO in the last 72 hours. Imaging- CXR [...] organisms given recent abx course. Consider meropenem. \ documented in this encounter [facility] 04-15-2024 Telephone encounter Note SURGERY SCHEDULING Surgeon: Dr. Dashawn Grimm PROCEDURE: Cystoscopy, possible cystolitholapaxy, bilateral ureteroscopy, bilateral laser lithotripsy, bilateral ureteral stent change - Special request: Astrid ruano DIAGNOSIS: Bladder calculus, bilateral ureteral stones FACILITY: [facility] DETAILS: OUTPT ANESTHESIA: GENERAL TIME REQUESTED: 2hr DATE REQUESTED: Must be minimum of 2 weeks from today due to infection SURGERY ORDERS: Already placed by Joe Hammer NP on 04/15/2024 POST OP FOLLOW UP: cysto stent removal 2 wks [facility] 04-15-2024 History and physical note Images from the original note were not included. Attending History and Physical Admit Date: 04/14/2024 PCP: AMBROSIO MONROY DO CHIEF COMPLAINT: UTI Reason for Admission: Seps History Obtained From: patient HISTORY OF PRESENT ILLNESS: Anmol is a 63 y.o. male with , recurrent UTI at [facility] who presented to the ED today due to bilateral leg pain and clogged santana catheter. Increased pain in butt and back - started this morning. Intermittent, fire pain, all day long. Has had this before [...] DECOMPRESSION performed by Opal Vigil MD at [facility] OR ORTHOPEDIC SURGERY PLACE URETAL [...] Resource Strain: Low Risk (04/24/2023) Received from [facility] Overall Financial Resource Strain (CARDIA) Difficulty of Paying Living Expenses: Not hard at all Food Insecurity: No Food Insecurity (04/24/2023) Received from [facility] Hunger Vital Sign Worried About Running Out of Food in the Last Year: Never true Ran Out of Food in the Last Year: Never true Transportation Needs: No Transportation Needs (04/24/2023) Re[facility] PRAPARE - Transportation Lack of Transportation (Medical): No Lack of Transportation (Non-Medical): No Physical Activity: Not on file Stress: Not on file Social Connections: Not on file Intimate Partner Violence: Not on file Housing Stability: High Risk (04/24/2023) Received from [facility], [facility] Housing Stability Vital Sign Unable to Pay for Housing in the Last Year: No Number of Places Lived in the Last Year: 4 In the last 12 months, was there a time when you did not have a steady place to sleep or slept in a jail (including now)?: No Family History: No family [...] (98.7 F) (Oral) Resp 23 Ht 6' 3 (1.905 m) Wt 205 lb 4.8 oz [...] TROPONINI <0.012 Procalcitonin: No results found for: PROCAL Urine Culture: Results for orders placed or [...] ug/ml COVID-19 PCR: No results for input(s): COVID19 in the last 72 hours. I reviewed: [...] - DO NOT do CPR, intubation] [_] [DNR-MARKETING TRAFFIC MANAGER - Comfort care only] [_] DNR form [...] Orquidea Marti MD Division of Hospitalist Medicine [facility] documented in this encounter [facility] 04-14-2024 Emergency department Note Both sets of blood cultures obtained from each PIV when started. Samples labeled and at bedside in case BC ordered Leyla Mendoza RN 04/14/24 7811 Patient arrives via EMS from ECF with c/o Santana catheter not draining, and [...] Type 2 diabetes mellitus without complication (CMS/HCC) ([facility]) SURGICAL HISTORY Past Surgical History: Procedure Laterality Date ANKLE SURGERY Right He has a titanium plate to the right ankle KNEE SURGERY ACL LAMINECTOMY Left 10/24/2020 LEFT BILATERAL L2-3-4-5 DECOMPRESSION performed by Opal Vigil MD at [facility] OR ORTHOPEDIC SURGERY CURRENT MEDICATIONS [...] Resource Strain: Low Risk (04/24/2023) Received from [facility] Overall Financial Resource Strain (CARDIA) Difficulty of Paying Living Expenses: Not hard at all Food Insecurity: No Food Insecurity (04/24/2023) Received from [facility] Hunger Vital Sign Worried About Running Out of Food in the Last Year: Never true Ran Out of Food in the Last Year: Never true Transportation Needs: No Transportation Needs (04/24/2023) Received from [facility] PRAPARE - Transportation Lack of Transportation (Medical): No Lack of Transportation (Non-Medical): No Housing Stability: High Risk (04/24/2023) Received from [facility] Housing Stability Vital Sign Unable to Pay for Housing in the Last Year: No Number of Places Lived in the Last Year: 4 In the last 12 months, was there a time when you did not have a steady place to sleep or slept in a jail (including now)?: No SCREENINGS PHYSICAL EXAM ED Triage Vitals [04/14/24 1555] Temp Heart Rate Resp BP 37.6 C (99.6 F) (!) 121 20 -- SpO2 Temp Source Heart Rate Source Patient Position 99 % Oral Monitor Lying BP Location FiO2 (%) Left arm -- Bmbdskf-avjr-skjmofmwr, slightly toxic-appearing HEENT- atraumatic, normocephalic Neck- no [...] Culture. Procedure Abnormality Status --------- ------ Complete Urinalysis[[id number]] Please view results for these tests on the individual orders. COMPLETE URINALYSIS LACTIC ACID WITH REFLEX LIPASE ABO RH BLOOD TYPE APTT PROTHROMBIN TIME All other labs were within normal range or not returned as of this dictation. EMERGENCY DEPARTMENT COURSE/Reval Vitals: Vitals: 04/14/24 1555 04/14/24 1630 04/14/24 1853 04/14/241914 BP: 82/55 104/73 103/60 Pulse: (!) 121 (!) 120 (!) 116 (!) 119 Resp: 20 (!) 27 Temp: 37.6 C (99.6 F) TempSrc: Oral SpO2: 99% 97% 98% Weight: 93.1 kg (205 lb 4.8 oz) Height: 1.905 m (6' 3) Diagnoses as of 04/14/242001 Septic shock (HCC) [...] Vitals: Vitals: 04/14/24 1555 04/14/24 1630 04/14/24 18504/14/241914 BP: 82/55 104/73 103/60 Pulse: (!) 121 (!) 120 (!) 116 (!) 119 Resp: 20 (!) 27 Temp: 37.6 C (99.6 F) TempSrc: Oral SpO2: 99% 97% 98% Weight: 93.1 kg (205 lb 4.8 oz) Height: 1.905 m (6' 3) Diagnoses as of 04/14/242001 Septic shock (HCC) [...] 1611. Rate 119 sinus tachycardia. Normal axis. WA interval 154, QRS 90, QTc 473. No [...] 04/14/242003 documented in this encounter [facility] 04-13-2024 Telephone encounter Note Called pt on his room number but unable to reach him or leave a message. [place] and was able to leave a message with nursing regarding his MRI findings and that I would like to speak with him and recommendations to schedule visit with SCI rehab and spine surgery. Vaishali Pierre DO [facility] 04-06-2024 Telephone encounter Note Telephoned [place] pt at dinner and front desk receptionist states she cannot pull pt away from dinner. [facility] 04-06-2024 Telephone encounter Note Called pt regarding his MRI, which showed: IMPRESSION: Acute-subacute sacral insufficiency fracture at S2. Postoperative and degenerative changes of the lumbar spine with linear granulation tissue at L2-3 and tethering of the cauda equina suggesting sequelae of chronic arachnoiditis. No evidence of osteomyelitis discitis or epidural abscess. He was currently out of the group home where he lives, but I was [...] set up to message. Vaishali Pierre DO [facility] 02-10-2024 Instructions Vaishali Pierre DO - 02/10/2024 1:53 PM EDT - xrays of the low back - can schedule the MRI of the lumbar spine - I recommend seeing one of my colleagues in the spinal cord injury clinic documented in this encounter [facility] 02-10-2024 History of Present illness Narrative [...] currently in a nursing facility, [facility]. Bladder management is via Santana catheter. [...] in the spinal cord injury clinic for predatory animal exterminator SCI related management. Vaishali Pierre DO Physical Medicine and Rehabilitation Vitals not obtained per provider's instructions. documented in this encounter [facility] 01-29-2024 History of Present illness Narrative Images from the original note were not included. [facility] [address] [place] [place] [address] Dept: [phone] Dept Chief Complaint Patient presents with Pain Pt is here for pain in both legs. He states he has joltsof pain in his legs as well as [...] without abscess 10/15/2020 Diabetes mellitus without complication ([facility]/HCC) ([facility]) 10/15/2020 Abnormal finding on EKG 10/15/2020 Other intervertebral disc displacement, lumbar region 10/15/2020 Lumbar radiculopathy 10/04/2020 Herniated nucleus pulposus, L5-S1, left 07/07/2017 No Known Allergies No family history on file. Past Medical History: Diagnosis Date Abscess, perineum Chronic back pain Hip sprain Hyperlipidemia Hypertension Neuropathy Osteoarthritis Sciatica Type 2 diabetes mellitus without complication (CMS/HCC) ([facility]) Social History Socioeconomic History Marital status: Spouse [...] DECOMPRESSION performed by Opal Vigil MD at [facility] OR ORTHOPEDIC SURGERY Current Outpatient [...] Weight: 180 lb (81.6 kg) Height: 6' 3 (1.905 m) Physical Exam Constitutional: General: He [...] file. documented in this encounter [facility] 12-29-2023 History of Present illness Narrative Images from the original note were not included. [facility] [address] [place] [address] Dept: [phone] Dept Chief Complaint Patient presents with New Patient Leg Pain Pt states having pain on his paralyzed legs, pain rate 8/10. SUBJECTIVE HPI: Anmol Reynolds is a 63 y.o. year old here today for evaluation and treatment of chronic bilateral leg pain LOCATION OF PAIN: entire bilateral legs RADIATES: throughout both legs QUALITY: electric CONSTANT/INTERMITTENT: constant, but occasional severe flare-ups DURATION: [...] Pressure injury of coccygeal region, stage 3 ([facility]) 04/20/2024 Septic shock ([facility]) 04/14/2024 Lumbar stenosis with neurogenic claudication 10/24/2020 Spinal stenosis of lumbar region with neurogenic claudication 10/24/2020 Nicotine use disorder 10/15/2020 Unspecified osteoarthritis, unspecified site 10/15/2020 Pilonidal cyst without abscess 10/15/2020 Diabetes mellitus without complication ([facility]/HCC) ([facility]) 10/15/2020 Abnormal finding on EKG 10/15/2020 Other [...] Resource Strain: Low Risk (04/24/2023) Re[facility] from [facility] Overall Financial Resource Strain (CARDIA) Difficulty of [...] DECOMPRESSION performed by Opal Vigil MD at [facility] OR ORTHOPEDIC SURGERY Right removal [...] Weight: 183 lb (83 kg) Height: 6' 3 (1.905 m) Physical Exam Constitutional: General: He [...] file. documented in this encounter [facility] 09-08-2023 Telephone encounter Note Called and left message for doug to call to schedule patient a new patient appointment [facility] 09-08-2023 Miscellaneous Notes Called and left message for doug to call to schedule patient a new patient appointment Name of caller: Doug Contact phone number: [phone] Relationship to Patient: [facility] [place] Provider: Practice: Pain Management Chief Complaint/Reason for Call: Doug states she mailed the referral over to the office and would like to know if the office received it. Please advise Best time of day caller can be reached: Any Patient advised that office/PCP has 24-48 business hours to return their call: Yes documented in this encounter [facility] 09-04-2023 Telephone encounter Note Name of caller: Doug Contact phone number: [phone] Relationship to Patient: [facility] [place] Provider: Practice: Pain Management Chief Complaint/Reason for Call: Doug states she mailed the referral over to the office and would like to know if the office received it. Please advise Best time of day caller can be reached: Any Patient advised that office/PCP has 24-48 business hours to return their call: Yes [facility] 08-19-2023 Telephone encounter Note Returned call gave fax number gave address to mail referral [facility] 08-19-2023 Miscellaneous Notes Returned call gave fax number gave address to mail referral Name of caller: Doug Contact phone number: [phone] Relationship to Patient: [facility] [place] Provider: Dr. Gillette Practice: Pain Management Chief [...] Name of caller: Doug Contact phone number: [phone] Relationship to Patient: [facility] [place] Provider: Dr. Gillette Practice: Pain Management Chief Complaint/Reason for Call: Doug states she would like a call back to confirm receipt of the patient's referral for MOWER OPERATOR appt scheduling (fax number confirmed). Please contact Doug and advise. Best time of day caller can be reached: Any Patient advised that office/PCP has 24-48 business hours to return their call: No documented in this encounter [facility] 08-19-2023 Telephone encounter Note Name of caller: Doug Contact phone number: [phone] Relationship to Patient: [facility] [place] Provider: Dr. Gillette Practice: Pain Management Chief Complaint/Reason for Call: Pt claims that fax of referral will not go threw and was hoping someone could give her a call back to go over the referral please advise Best time of day caller can be reached: Any Patient advised that office/PCP has 24-48 business hours to return their call: No [facility] 08-19-2023 Telephone encounter Note Name of caller: Doug Contact phone number: [phone] Relationship to Patient: [facility] [place] Provider: Dr. Gillette Practice: Pain Management Chief Complaint/Reason for Call: Doug states she would like a call back to confirm receipt of the patient's referral for MOWER OPERATOR appt scheduling (fax number confirmed). Please contact [facility] and advise. Best time of day caller can be reached: Any Patient advised that office/PCP has 24-48 business hours to return their call: No [facility] 08-13-2023 Telephone encounter Note Called and gave fax number to send referral [facility] 08-13-2023 Miscellaneous Notes Called and gave fax number to send referral Pt is asking for a call back to be scheduled Left message for patient to call the office Returned call will call thursday Name of Caller: Doug Crowell [place] Contact Reason for Appointment: Doug states that they faxed over a referral for patient a few days ago and is calling to schedule a MOWER OPERATOR appointment. Please advise. Office Name: [facility] Pain Medication Refills need, if any: none Medication Name: n/a ` documented in this encounter [facility] 08-13-2023 Telephone encounter Note Pt is asking for a call back to be scheduled [facility] [employer] 08-12-2023 Telephone encounter Note Left message for patient to call the office [facility] [employer] 08-07-2023 Telephone encounter Note Returned call will call thursday [facility] 08-06-2023 Telephone encounter Note Name of Caller: Doug Crowell [place] Contact Reason for Appointment: Doug states that they faxed over a referral for patient a few days ago and is calling to schedule a MOWER OPERATOR appointment. Please advise. Office Name: [facility] Pain Medication Refills need, if any: none Medication Name: n/a ` [facility] 05-23-2023 Emergency department Note Physicians [facility] arrived and report given. Patient loaded and sent back to [facility]. Vladimir Dimas RN 05/23/23 1207 [facility] 05-23-2023 Emergency department Note Physicians [facility] arrived and report given. Patient loaded and sent back to [facility]. Vladimir Dimas RN 05/23/23 1207 Inserted a [...] Sciatica Type 2 diabetes mellitus without complication ([facility]) SURGICAL HISTORY Past Surgical History: Procedure Laterality Date ANKLE SURGERY Right He has a titanium plate to the right ankle KNEE SURGERY ACL LAMINECTOMY Left 10/24/2020 LEFT BILATERAL L2-3-4-5 DECOMPRESSION performed by Opal Vigil MD at [facility] OR ORTHOPEDIC SURGERY CURRENT MEDICATIONS [...] Culture. Procedure Abnormality Status --------- ------ Complete Urinalysis[[id number]] Abnormal Final result Please view results for [...] kg (180 lb) Height: 1.905 m (6' 3) Medications cephalexin (Keflex) capsule 500 mg (has [...] paraplegia . Liliana Klein DO am the heel lift gouger of record. PROCEDURES: Unless otherwise noted below, none Procedures FINAL IMPRESSION 1. Urinary tract infection associated with indwelling urethral catheter, initial encounter ([facility]) DISPOSITION Discharge 05/23/2023 09:53:37 AM PATIENT REFERRED TO: Ambrosio Monroy DO [address] [facility] [address] [facility] [address] [facility] [address] [facility] [address] DISCHARGE MEDICATIONS: New Prescriptions CEPHALEXIN [...] success. documented in this encounter [facility] 05-23-2023 Emergency department Note Inserted a santana [...] Vladimir Dimas RN 05/23/23 1013 [facility] 05-23-2023 Emergency department Note Bed: 18 Expected date: Expected time: Means of arrival: Comments: Adelia Banuelos 05/23/23 0746 [facility] 05-23-2023 Emergency department Triage note Patient with chronic santana due to history of paraplegia that became clogged with blood clots. Patient had lithotripsy due to stone recently. [facility] attempted several times to reinsert santana without success. [facility] 05-23-2023 Physician Emergency department Note EMERGENCY DEPARTMENT [...] Sciatica Type 2 diabetes mellitus without complication ([facility]) SURGICAL HISTORY Past Surgical History: Procedure Laterality Date ANKLE SURGERY Right He has a titanium plate to the right ankle KNEE SURGERY ACL LAMINECTOMY Left 10/24/2020 LEFT BILATERAL L2-3-4-5 DECOMPRESSION performed by Opal Vigil MD at [facility] OR ORTHOPEDIC SURGERY CURRENT MEDICATIONS [...] Culture. Procedure Abnormality Status --------- ------ Complete Urinalysis[[id number]] Abnormal Final result Please view results for [...] kg (180 lb) Height: 1.905 m (6' 3) Medications cephalexin (Keflex) capsule 500 mg (has [...] . I Colt Klein DO am the heel lift gouger of record. PROCEDURES: Unless otherwise noted below, none Procedures FINAL IMPRESSION 1. Urinary tract infection associated with indwelling urethral catheter, initial encounter ([facility]) DISPOSITION Discharge 05/23/2023 09:53:37 AM PATIENT REFERRED TO: Ambrosio Monroy, DO [address] [place] [address] [facility] [id number] [facility] [address] [facility] [address] DISCHARGE MEDICATIONS: New Prescriptions CEPHALEXIN [...] Medicine Provider Colt Klein DO 05/23/23 1010 [facility] 04-21-2022 Note HNO ID: [id number] Author: Cindi Cuellar PA-C Service: ? Author Type: Physician Retail Department Reset Type: Progress Notes Filed: 04/21/2022 12:25 PM Note Text: Actionable Finding: Reviewed patient's chart. The actionable finding of MRI lumbar , dated 02/14/22 was followed up by unknown and unsure if the patient was contacted regarding the MRI results. Unable to reach patient. Staff msg sent to Dr Kelly - patient spine surgeon. Cindi Cuellar PA-C [facility] 04-21-2022 Note Patient Outreach (SP NSMN) ANMOL REYNOLDS ([id number]) 1960 M Date Time Provider Department 04/21/22 [...] Of Date 04/21/2022 Noted Resolved NO SHOW [[id number]] 08/31/2013 05/29/2020 Perineal abscess [L02.215] 06/13/2019 05/29/2020 [...] Encounter Status:Closed by CINDI CUELLAR on 04/21/22 [facility] 04-21-2022 Note Patient Outreach (DILLON MARTINEZMN) GIVEN,ANMOL ([id number]) 1960 M Date Time Provider Department 04/21/22 [...] Of Date 04/21/2022 Noted Resolved NO SHOW [[id number]] 08/31/2013 05/29/2020 Perineal abscess [[id number]] 06/13/2019 05/29/2020 [...] Encounter Status:Closed by CINDI CUELLAR on 04/21/22 [facility] 04-21-2022 History of Present illness Narrative Actionable Finding: Reviewed patient's chart. The actionable finding of MRI lumbar , dated 02/14/22 was followed up by unknown and unsure if the patient was contacted regarding the MRI results. Unable to reach patient. Staff msg sent to Dr Kelly - patient spine surgeon. Cindi Cuellar PA-C documented in this encounter [facility] 02-14-2022 History of Present illness Narrative Radiology [...] PERIPHERAL IV DATA: Ambulatory: [facility] RADIOLOGY DEPARTMENT: MR; Exam(s) Completed: Head: Routine Brain Spine: WHOLE spine SIGNATURE: RT Kasandra(Ector) PATIENT NAME: Anmol Reynolds DATE: February 14, 2022 TIME: 12:27 PM documented in this encounter [facility] 08-05-2021 Note HNO ID: [id number] Author: Penny Cameron MD Service: ? Author [...] in 01/2021. Pt c/o pilonidal abscess that burst last week, since has no pain, no [...] vision, no nose bleeds or other nasal problems CARDIOVASCULAR: Negative for chest pain, Negative for [...] 102/74 Pulse 66 Ht 188 cm (6' 2) Wt 63.5 kg (140 lb) BMI 17.97 [...] CT chest abd/pelvis (more content not included)... [facility] 01-16-2021 History of Past i llness Narrative Problem Noted Date Resolved Date Perirectal abscess 01/16/2021 08/21/2021 Perineal abscess 06/13/2019 05/29/2020 NO SHOW 08/31/2013 05/29/2020 documented as of this encounter (statuses as of 02/15/2022) [facility]04-14-2021 History of Past illness Narrative* Problem Noted Date Resolved Date Perirectal abscess 01/16/2021 08/21/2021 Perineal abscess 06/13/2019 05/29/2020 NO SHOW 08/31/2013 05/29/2020 documented as of this encounter (statuses as of 04/21/2022) [facility] noteNo assessment information availableWMer[facility] Work Phone: Evaluation note* Diagnosis Urinary tract infection associated with indwelling urethral catheter, initial encounter (HCC)- Primary [facility] Diagnosis Injury of lumbar spinal cord, sequela (HCC)- Primary Neuropathic pain [facility]* Diagnosis Paraplegia (HCC)- Primary Paraplegia History of lumbar fusion Paraplegia (HCC) Paraplegia History of [facility] Diagnosis Paraplegia (HCC) Paraplegia History of lumbar fusion [facility]* Diagnosis Bilateral ureteral calculi- Primary Bladder calculus Other calculus in bladder [facility]* Diagnosis Septic shock (HCC)- Primary Septic shock (HCC) Urinary obstruction Decubitus ulcer of sacral region, stage 2 (HCC) Injury of lumbar spinal cord, sequela (HCC) Neuropathic pain Pressure injury of coccygeal region, stage 3 (HCC) Bacteremia Pressure injury of coccygeal region, stage 3 (HCC) Calculus of ureter [facility]* Diagnosis Paraplegia (HCC)- Primary Paraplegia History of lumbar fusion Sacral insufficiency fracture, initial encounter [facility]* Diagnosis Bladder calculus- Primary Other calculus in bladder Bladder calculus Other calculus in bladder Bilateral ureteral calculi Calculus of ureter documented [facility]* Diagnosis Sacral insufficiency fracture, initial encounter [...] (HCC) [facility]* Diagnosis Spinal cord injury, lumbar, without spinal bone injury, sequela (HCC)- Primary Neuropathic pain [facility]* Diagnosis Paraplegia (HCC)- Primary Paraplegia Reflex [...] unspecified stage- Primary [facility] Diagnosis Chronic osteomyelitis (HCC)- Primary Chronic [...] Other postprocedural status documented in this encounter [facility]* Diagnosis Paraplegia (HCC)- Primary Paraplegia Neurogenic bladder Neurogenic bladder, NOS Gross hematuria Neuropathic pain Neuralgia, neuritis, and radiculitis, unspecified Pressure injury of skin, unspecified injury stage, unspecified location [facility]* Diagnosis Ureteral stent present- Primary Kidney stone Calculus of kidney Hydronephrosis, unspecified hydronephrosis type documented in this encounter [facility] note* Diagnosis Chronic osteomyelitis (HCC)- Primary Chronic osteomyelitis, site unspecified Severe protein-calorie malnutrition (HCC) Other severe protein-calorie malnutrition Ureteral calculi Calculus of ureter Complicated UTI (urinary tract infection) Urinary tract infection, site not specified Neurogenic bladder Neurogenic bladder, NOS Type 2 diabetes mellitus with hyperglycemia, with long-term current use of insulin ([facility]) [facility] Diagnosis Other acute osteomyelitis, other site (HCC)- Primary Other acute osteomyelitis, other site (HCC) Pressure injury of coccygeal region, stage 3 (HCC) Lumbar stenosis with neurogenic claudication Osteoarthritis, unspecified osteoarthritis type, unspecified site Other intervertebral disc displacement, lumbar region Pressure injury of coccygeal region, stage 3 (HCC) documented in this encounter [facility] Discharge instructions* Attachments The following attachments cannot be sent through Care Everywhere. * Urinary Tract Infections in Adults (Barbadian) [facility] (n[facility]ative)* Consultation (Routine) - Pending Review Specialty Diagnoses / Procedures Referred By Contac t Referred To Contact Urology Diagnoses Urinary obstruction Procedures WA OFFICE/OUTPATIENT NEW HIGH [facility]DM 60 MINUTES Otis Mckenzie DO [address] [place] [address] Dashawn Grimm MD [address] [address] Referral ID Status Reason Start Date Expiration Date Visits Requested Visits Authorized [id number] Pending Review Specialty Services Required 04/20/2024 04/20/2025 1 1 * Consultation (Routine) - Pending Review Specialty Diagnoses / Procedures Referred By Contac t Referred To Contact Wound Care Diagnoses Decubitus ulcer of sacral region, stage 2 (HCC) Procedures [place] OFFICE/OUTPATIENT NEW HIGH [facility] 60 MINUTES Sumi Everett, CUPOLA TENDER HELPER - NETWORK OPERATIONS CENTER TECHNICIAN [address] [place] [address] [facility] Op Wnd Ostomy [address] [place] [address] Referral ID Status Reason Start Date Expiration Date Visits Requested Visits Authorized [id number] Pending Review Specialty Services Required 04/15/2024 04/15/2025 1 1 [facility] for referral (narrative)No reason for referral information [facility] Work Phone: Reason for visit Narrative* Service Level Authorization (Routine) - Closed Specialty Diagnoses / Procedures Referred By Daisy paredes Referred To Contact Physical Medicine & Rehab/PM&R Diagnoses Paraplegia (HCC) Reflex neurogenic bladder Procedures CYSTOMETROGRAM W/BUILDING MAINTENANCE MECHANIC BLADDER IRRIGATION, SIMPLE, LAVAGE &/OR INSTILLATION COMPLEX UROFLOWMETRY ELECTROMYOGRAPHY STUDIES, ANAL/URETHRAL SPHINCTER, OTHER THAN NEEDLE, ANY TECHNIQUE VOIDING PRESSURE STUDIES; INTRA-ABDOMINAL VOIDING PRESSURE Faisal Simeon DO [address] [place] [address] Phone: tel: fax: [facility] Anna PM&R [address] [place] [address] Phone: tel: Referral ID Status Reason Start Date Expiration Date V isits Requested Visits Authorized [id number] Closed Consultation -[facility] 06/13/2024 06/13/2025 1 1 [facility] Narrative* MRI/CT (Routine) - Authorized Specialty Diagnoses / Procedures Referred By Daisy paredes Referred To Contact Radiology / RADIO MRI [facility] Diagnoses Pressure ulcer of sacral region, unspecified stage PT WILL NEED A EVERETT LIFT SACRUM/PELVIS WO/W Pressure ulcer of sacral region, unspecified stage [L89.159] BIRDIE WILL FAX ORDER Procedures MRI PELVIS W/O & W/CONTRAST MATERIAL MRI WWO NEU1 B 300 Howell, Kristine L, CUPOLA TENDER HELPER [address] [place] [address] Phone: tel: fax: Radiology [address] [place] [address] Phone: tel: Referral ID Status Reason Start Date Expiration Date V isits Requested Visits Authorized [id number] Authorized 11/14/2024 01/13/2025 3 3 [facility] Summary Purpose Family History No Family History [...] FoundDocuments on File Type Date Recorded Patient Lens Examiner Expl anation ACP-Advance Directive ACP-Power of Recording Clerk Latest Code Status on File Code Status Date Activated Date Inactivated Comments Full Code 10/24/2020 7:42 PM Full Code 01/05/2017 7:24 PM 01/06/2017 9:11 PM Documents on File Type Date Recorded Patient Lens Examiner Expl anation Advance Directive(s) 01/04/2022 9:24 PM [...] Full Code Order Discussed With: Patient and Reyna ogate Decision Maker Surrogate Decision Maker Name: [...] mellitus without complication (H[place]) [place] [address] [place] [address] [facility] [address] [place] [address] Scheduling Instructions [facility] - Diabetic Education [address] [place], [place] [address] Specialty Diagnoses / Procedures Referred By Contact Referred To Contact Physical Medicine & Rehab/PM&R Diagnoses Paraplegia (HCC) History of lumbar fusion Vaishali Pierre, DO [address] [place] [address] [facility] [place] - Rehab [facility] [address] [place] [phone] Referral ID Status Reason Start Date Expiration Date V isits Requested Visits Authorized [id number] Authorized 02/10/2024 02/09/2025 1 1 Scheduling Instructions [...] Procedures MR L-SPINE W/+W/O Vaishali Pierre DO [address] [place] [address] [facility] MRI [address] [place] [address] Referral ID Status Reason Start Date Expiration Date V isits Requested Visits Authorized [id number] Authorized 02/10/2024 02/09/2025 1 1 Specialty Diagnoses / Procedures Referred By Contac t Referred To Contact Radiology Diagnoses Paraplegia (HCC) History of lumbar fusion Procedures XR L-SPINE AP+LATERAL 2-3 VIEWS Vaishali Pierre DO [address] [place] [address] [facility] DIAGNOSTIC RADIOLOGY [address] [place] [address] Referral ID Status Reason Start Date Expiration Date Visits Re quested Visits Authorized [id number] Closed 02/10/2024 02/09/2025 1 1 Referral ID Status Reason Start Date Expiration Date Visits Re quested Visits Authorized [id number] Closed 02/10/2024 02/09/2025 1 1 Specialty Diagnoses / Procedures Referred By Contac t Referred To Contact Diagnoses Paraplegia (HCC) History of lumbar fusion Sacral insufficiency fracture, initial encounter Vaishali Pierre [place] [id number] Referral ID Status Reason Start Date Expiration Date Visits Requested Visits Authorized [id number] Authorized Consultatio n-[facility] 04/06/2024 04/06/2025 1 1 Scheduling Instructions You have been referred to the [facility]ine [facility]. You will be contacted to schedule your appointment within 24 - 48 hours. If you are not contacted within this time frame please call the Spine Center at [phone] to schedule your appointment. Question Answer Reason [...] 2 OR 3 VIEWS Otis Mejia MD [address] [place] [address] [facility] DIAGNOSTIC RADIOLOGY [address] [place] [address] [place] [address] Referral ID Status Reason Start Date Expiration Date Visits Re quested Visits Authorized [id number] Closed 05/11/2024 05/11/2025 1 1 Specialty Diagnoses / Procedures Referred By Contac t Referred To Contact Radiology Diagnoses Sacral insufficiency fracture, initial encounter Procedures XR SACRUM-COCCYX 3 VIEWS Berna Johnson PA-C [address] [place] [address] [place] [address] [facility] DIAGNOSTIC RADIOLOGY [address] [place] [address] [place] [address] Referral ID Status Reason Start Date Expiration Date Visits Re quested Visits Authorized [id number] Closed 05/10/2024 05/10/2025 1 1 Specialty Diagnoses / Procedures Referred By Contac t Referred To Contact Radiology Diagnoses Sacral insufficiency fracture, initial encounter Procedures MR C-SPINE W/O Otis Mejia MD [address] [place] [address] [facility] MRI [address] [place] [address] Referral ID Status Reason Start Date Expiration Date V isits Requested Visits Authorized [id number] Authorized 05/11/2024 05/11/2025 1 1 Specialty Diagnoses / Procedures Referred By Contac t Referred To Contact Radiology Diagnoses Sacral insufficiency fracture, initial encounter Procedures MR T-SPINE W/O Otis Mejia MD [address] [place] [address] [facility] MRI [address] [place] [address] Referral ID Status Reason Start Date Expiration Date V isits Requested Visits Authorized [id number] Authorized 05/11/2024 05/11/2025 1 1 Specialty Diagnoses / Procedures Referred By Contac t Referred To Contact Radiology Diagnoses Sacral insufficiency fracture, initial encounter Procedures BD BONE DENSITY SURVEY Otis Mejia MD [address] [place] [address] S BONE DENSITY [address] [place] [address] Referral ID Status Reason Start Date Expiration Date V isits Requested Visits Authorized [id number] Authorized 05/11/2024 05/11/2025 1 1 Specialty Diagnoses / Procedures Referred By Contac t Referred To Contact Physical Medicine & Rehab/PM&R Diagnoses Paraplegia (HCC) Reflex neurogenic bladder Faisal Simeon DO [address] [place] [address] [facility] [address] [place] [address] Referral ID Status Reason Start Date Expiration Date Visits Requested Visits Authorized [id number] Pending [facility] 06/[facility]/2024 06/13/2025 3 3 Scheduling Instructions Please schedule this appointment through [facility] or call the phone number listed above. [...] Services Diagnoses Paraplegia (HCC) Faisal Simeon DO [address] [place] [address] Referral ID Status Reason Start Date Expiration Date Visits Requested Visits Authorized [id number] Authorized [facility] 06/13/2024 06/13/2025 3 3 Scheduling Instructions Please call to schedule an appointment. If you are unable to keep your appointment, please call [phone] at least 24 hours in advance. Question Answer Reason for request: Basic Needs (i.e. medical equipment, housing, food, rent, utilities, transpo), Benefits Applications (i.e. social security, job and family services), Vocational (i.e. [place] rehab [employer], volunteer work), Other Support Services (i.e. medication programs, home accessibility, legal assistance) Other support services requested: Home accessibility Referral ID Status Reason Start Date Expiration Date Visits Re quested Visits Authorized [id number] Closed 05/11/2024 05/11/2025 1 1 Referral ID Status Reason Start Date Expiration Date Visits Re quested Visits Authorized [id number] Closed 05/11/2024 05/11/2025 1 1 Discharge Instructions [...] at most local grocery stores, pharmacies, and chain [employer]-stores. ? If you have any questions about your diet or nutrition, call the hospital and ask for the dietitian. * Discharge Instr - ADELINEOpal Sandoval MD - 10/24/2020 1:33 PM EST Continuity of Care Form Patient Name: Anmol Reynolds : 1960 Admit date: 10/24/2020 Discharge date: Code Status Order: Prior Advance Directives: Advance Care Flowsheet Documentation Date/Time Healthcare Directive Type of Healthcare Directive Copy in Chart Healthcare Agent Appointed Healthcare Agent's Name Healthcare Agent's Phone Number 10/24/20 0867 No, patient does not have an advance directive for healthcare treatment -- -- -- -- -- Admitting Physician: Opal Vigil MD PCP: AMBROSIO MONROY DO Discharging Nurse: Discharging Hospital Unit/Room#: MLOZ OR Pool/NONE Discharging Unit Phone Number: Emergency Contact: Extended Emergency Contact Information Primary Emergency Contact: Gail[facility]yla [facility] Relation: Spouse Orthopaedic Doctor needed? No Secondary Emergency Contact: Ronald Reynolds [...] (36.6 C) (Temporal) Resp 16 Ht 6' 2 (1.88 m) Wt 200 lb (90.7 kg) SpO2 97% BMI 25.68 kg/m Last documented pain score (0-10 scale): Pain Level: 4 Last Weight: Wt Readings from Last 1 Encounters: 10/24/20 200 lb (90.7 kg) Mental Status: {IP PT MENTAL STATUS:} IV Access: { ADELINE IV ACCESS:050776861} Nursing Mobility/ADLs: Walking {CHP DME ADLs:600795727} Transfer {CHP DME ADLs:217874250} Bathing {CHP DME ADLs:184023120} Dressing {CHP DME ADLs:273379493} Toileting {CHP DME ADLs:532435426} Feeding {CHP DME ADLs:376585447} Shank Scourer {[facility] DME ADLs:946108830} Med Delivery { ADELINE MED Delivery:154477053} Wound Care Documentation and Therapy: Elimination: Continence: Bowel: {YES / NO:} Bladder: {YES / NO:} Urinary Catheter: {Urinary Catheter:650675871} Colostomy/Ileostomy/Ileal Conduit: {YES / NO:} Date of Last BM: Intake/Output Summary (Last 24 hours) at 10/24/2020 1333 Last data filed at 10/24/2020 1139 Gross per 24 hour Intake 1000 ml Output 325 ml Net 675 ml No intake/output data recorded. Safety Concerns: { ADELINE Safety Concerns:780914561} Impairments/Disabilities: { ADELINE Impairments/Disabilities:012733709} Nutrition Therapy: Current Nutrition Therapy: { ADELINE Diet List:371490485} Routes of Feeding: {[facility] DME Other Feedings:995626138} Liquids: {Homicide Squad Lieutenant liquid thickness:45613} Daily Fluid Restriction: {[facility] DME Yes amt example:781243051} Last Modified Barium Swallow with Video (Video Swallowing Test): {Done Not Done Date:} Treatments at the Time of Hospital Discharge: Respiratory Treatments: Oxygen Therapy: {Therapy; copd oxygen:30324} Ventilator: {[facility] Vent List:019288826} Rehab Therapies: {THERAPEUTIC INTERVENTION:1984661492} Weight Bearing Status/Restrictions: {[facility] Weight Bearin} Other Medical Equipment (for information only, NOT a DME order): {EQUIPMENT:672023499} Other Treatments: Patient's personal belongings (please select all that are sent with patient): {[facility] DME Belongings:505362410} RN SIGNATURE: {Esignature:323395886} CASE MANAGEMENT/SOCIAL WORK SECTION Inpatient Status Date: Readmission Risk Assessment Score: Readmission Risk Risk of Unplanned Readmission: 0 Discharging to Facility/ Agency Name: Address: Phone: Fax: Dialysis Facility (if applicable) Name: Address: Dialysis Schedule: Phone: Fax: Trip Rider/Manager Copy signature: {Esignature:282056537} PHYSICIAN SECTION Prognosis: {Prognosis:3325774389} Condition at Discharge: { Patient Condition:615715203} Rehab Potential (if transferring to Rehab): {Prognosis:2981313339} Recommended Labs or Other Treatments After Discharge: Physician Certification: I certify the above information and transfer of Anmol Reynolds is necessaryfor the continuing treatment of the diagnosis listed and that he requires {Admit to Appropriate Level of Care:05479} for {GREATER/LESS:602922561} 30 days. Update Admission H&P: {CHP DME Changes in HandP:354516999} PHYSICIAN SIGNATURE: * Additional Instructions* Opal Vigil MD - 10/24/2020 Every day change the dressing frequently to keep clean and dry 4 x 4 gauze pads paper tape. May shower 3 days. Avoid soaking or soap for 1 week. Recheck 1 month [id number]. E prescribed Romeo 5/325 #28 done documented in this encounter [...] (36.5 C) (Oral) Resp 16 Ht 6' 2 (1.88 m) Wt 200 lb (90.7 kg) [...] Full Code PT/OT Eval * Ye Prado, CUPOLA TENDER HELPER - NETWORK OPERATIONS CENTER TECHNICIAN - 10/25/2020 9:43 AM EST Patient [...] region, with neurogenic claudication Hospital Course Note [facility] [address] DISCHARGE SUMMARY PATIENT NAME: ANMOL REYNOLDS : 1960 MED REC NO: [id number] ROOM: 65 ACCOUNT NO: [id number] ADMIT DATE: 10/24/2020 PROVIDER: Opal Vigil MD DISCH DATE: HOSPITAL COURSE: Left and bilateral L2-L3, L3-L4, L4-L5 micro decompressions. The patient tolerated the procedure well. Wound drain in place, removal the next day. Once ambulatory with bladder control, plan discharge in good condition. DISCHARGE DIAGNOSIS: L2, L3, L4, L5 canal stenosis with neurogenic claudication, improved. DISCHARGE MEDICATION: Romeo 5/325, #28. DISCHARGE INSTRUCTIONS: The patient has been instructed to keep the wound clean and dry about three days, avoiding soaking or soap for a week, recheck in a month. If he has any questions or problems, please contact the office. OPAL VIGIL MD /[id number] Doc#: [id number] CC: Chief Complaint and Reason for Visit Chief Complaint LABWORK Chief Complaint LABWORK [facility] LAB WORK Chief Complaint LABWORK FPC LAB WORK [facility] LAB WORK Chief Complaint FPC LAB WOR K [facility] LAB WORK [facility] LAB WORK LABWORK Chief Complaint LABWORK [facility] LAB WORK LABWORK Chief Complaint LABWORK [facility] LAB WORK LABWORK [facility] LAB WORK Chief Complaint Admit Date [facility] LAB WORK September 20 5:00am [facility] LAB WORK September 29 4:00am [facility] LAB WORK October 03 5:00am LABWORK October 10, 2024 5: 00am [facility] LAB WORK November 29 4:45am LABWORK November 30, 2024 5:00am Chief Complaint Admit Date [facility] LAB WORK September 20 5:00am [facility] LAB WORK September 29 4:00am [facility] LAB WORK October 03 5:00am LABWORK October 10, 2024 5: 00am [facility] LAB WORK November 29 4:45am LABWORK November 30, 2024 5:00am [facility] LAB WORK December 07, 2024 5: 00am Chief Complaint Admit Date [facility] LAB WORK November 29 4:45am LABWORK November 30, 2024 5:00am [facility] LAB WORK December 07, 2024 5: 00am [facility] LAB WORK January 09, 2025 5: 00am LABWORK February 15, 2025 4:20a m LABOWRK March 01, 2025 5:00a m Chief Complaint Admit Date [facility] LAB WORK November 29 4:45am LABWORK November 30, 2024 5:00am [facility] LAB WORK December 07, 2024 5: 00am [facility] LAB WORK January 09, 2025 5: 00am [...] section and content) DATE CREATED AUTHOR 03/30/2018 [facility] DATE CREATED AUTHOR AUTHOR'S ORGANIZ ATION 03/31/2018 [facility] DATE CREATED AUTHOR AUTHOR'S ORGANIZ ATION 06/22/2018 [facility] DATE CREATED AUTHOR AUTHOR'S ORGANIZ ATION 07/08/2018 [facility] DATE CREATED AUTHOR AUTHOR'S ORGANIZ ATION 10/20/2020 [facility] DATE CREATED AUTHOR AUTHOR'S ORGANIZ ATION 10/27/2020 [facility] [place] [place] DATE CREATED AUTHOR AUTHOR'S ORGANIZ ATION 05/24/2021 [facility] DATE CREATED AUTHOR AUTHOR'S ORGANIZ ATION 10/16/2021 [facility] DATE CREATED AUTHOR AUTHOR'S ORGANIZ ATION 04/25/2022 [facility] DATE CREATED AUTHOR AUTHOR'S ORGANIZ ATION 11/10/2024 [facility] DATE CREATED AUTHOR AUTHOR'S ORGANIZ ATION 03/22/2025 [facility] DATE CREATED AUTHOR AUTHOR'S ORGANIZ ATION 03/27/2025 [facility] Center DATE CREATED AUTHOR AUTHOR'S ORGANIZ ATION 05/17/2025 [facility] DATE CREATED AUTHOR AUTHOR'S ORGANIZ ATION 05/22/2025 [facility] Reason for Visit (unrecogniz ed section and content) Status Reason Specialty Diagnoses / Procedures Referre d By Contact Referred To Contact Diagnoses L2-3-4-5 STENOSIS Procedures WA LAMINECTOMY,>2 SGMT,LUMBAR LEFT BILATERAL L2-3-4-5 DECOMPRESSION. 2.5 HOURS, C-ARM, POWER RONGEUR. 1ST CASE (PAT AT [facility]) Opal Vigil MD [address] [place] [address] [facility] Reason Comments Urinary Retention Reason Onset Date Comments new patient appointment 08/06/2023 Reason Onset Date Comments Referral 09/04/2023 Reason Onset Date Comments Referral 08/19/2023 Confirm Receipt of Referral for MOWER OPERATOR Appt Scheduling Reason Comments Pain Pt is here for pain in both legs. He states he has joltsof pain in his legs as well as a burning sensation. He was put on Lyrica which he states is not working. Reason Comments New patient, to establish relationship D [facility] Specialty Diagnoses / Procedures Referred By Daisy paredes Referred To Contact Radiology Diagnoses Paraplegia (HCC) History of lumbar fusion Procedures MR L-SPINE W/+W/O Vaishali Pierre, DO [address] [place] [address] [facility] MRI [address] [place] [address] Referral ID Status Reason Start Date Expiration Date Visits Re quested Visits Authorized [id number] Closed 02/10/2024 02/09/2025 1 1 Reason Comments Leg Pain Specialty Diagnoses / Procedures Referred By Daisy paredes Referred To Contact Diagnoses Urinary obstruction Septic shock (HCC) Procedures - Lauryn Hooker MD [address] [facility] [address] [place] [address] [facility] [address] [place] [address] Referral ID Status Reason Start Date Expiration Date Visits Re quested Visits Authorized [id number] 1 1 Reason Onset Date Comments Surgery Scheduling 04/15/2024 Reason Onset Date Comments Reschedule 05/04/2024 Specialty Diagnoses / Procedures Referred By Daisy paredes Referred To Contact Diagnoses Calculus of ureter Procedures WA CYSTOURETHROSCOPY WA LITHOLAPAXY COMP/LG > 2.5 CM WA CYSTO W/URETEROSCOPY W/LITHOTRIPSY WA CYSTO W/INSERT URETERAL STENT CYSTOSCOPY POSSIBLE CYSTOLITHOLAPAXY BILATERAL URETEROSCOPY ASTRID LASER LITHOTRIPSY BILATERAL URETERAL STENT CHANGE Dashawn Grimm MD [address] [place] [address] [address] [facility] [place] [address] Referral ID Status Reason Start Date Expiration Date Visits Re quested Visits Authorized [id number] 1 1 Reason Onset Date Comments Update 05/10/2024 Specialty Diagnoses / Procedures Referred By Daisy paredes Referred To Contact Radiology Diagnoses Sacral insufficiency fracture, initial encounter Procedures XR SACRUM-COCCYX 3 VIEWS Berna Johnson PA-C [address] [facility] [place] [address] [facility] DIAGNOSTIC RADIOLOGY [address] [facility] [place] [address] Referral ID Status Reason Start Date Expiration Date Visits Re quested Visits Authorized [id number] Closed 05/10/2024 05/10/2025 1 1 Reason Onset Date Comments Labs Only 05/13/2024 Reason Comments Numbness/tingling New patient, to establish relationship Specialty Diagnoses / Procedures Referred By Daisy paredes Referred To Contact Diagnoses Paraplegia (HCC) History of lumbar fusion Sacral insufficiency fracture, initial encounter Vaishali Pierre DO [address] [place] [address] Referral ID Status Reason Start Date Expiration Date V isits Requested Visits Authorized [id number] Closed Consultation -[facility] 04/06/2024 04/06/2025 1 1 Reason Comments Other Abnormal labs, blood cultures has been done to pt in facility, gram + cocci. Had back sx 2 yrs ago that resulted to paraplegia, pt is paralyze from waist down. Afebrile, aox4 Specialty Diagnoses / Procedures Referred By Contac t Referred To Contact Diagnoses Positive blood cultures Procedures - Heydi Concepcion MD [address] [place] [address] [facility] Emergency Dept [address] [place] [phone] Referral ID Status Reason Start Date Expiration Date Visits Re quested Visits Authorized [id number] 1 1 Reason Comments New Patient Leg Pain Pt states having jeri n on his paralyzed legs, pain rate 05/14. Reason Comments New patient, to establish relationship Specialty Diagnoses / Procedures Referred By Contact Referred To Contact Physical Medicine & Rehab/PM&R Diagnoses Paraplegia (HCC) History of lumbar fusion Vaishali Pierre DO [address] [place], [place] [id number] [facility] - Rehab [address] [phone] Referral ID Status Reason Start Date Expiration Date V isits Requested Visits Authorized [id number] Pending Review 02/10/2024 02/09/2025 1 1 Reason Onset Date Comments Reschedule 06/15/2024 Specialty Diagnoses / Procedures Referred By Contac t Referred To Contact Radiology Diagnoses Sacral insufficiency fracture, initial encounter Procedures MR T-SPINE W/O Otis Mejia MD [address] [place] [address] [address] [place] [address] Referral ID Status Reason Start Date Expiration Date Visits Re quested Visits Authorized [id number] Closed 05/11/2024 05/11/2025 1 1 Reason Comments Evaluation Follow up Reason Comments Osteoporosis Reason Onset Date Comments Appointment 10/25/2024 Reason Onset Date Comments Hospital F/U 02/19/2025 Reason Onset Date Comments Other 03/07/2025 Reason Comments Evaluation Reason Comments Nephrolithiasis Reason Comments Wound Check Sacrum / left ischiu m Reason Comments Wound Infection Per EMS pt was sent here from the [place] for wound infections. Pt has two wound on his sacrum - one at the top of sacrum and one at the bottom of the buttocks. Denies any fever/ CP/FEVER/ SOB. Pt is paralysis. Specialty Diagnoses / Procedures Referred By Contdarian t Referred To Contact Diagnoses Other acute osteomyelitis, other site ([facility]) Procedures m86.18 Georgette Bueno MD [address] [place] [address] Phone: tel: fax: [facility] Medical Unit [address] [place] [phone] Phone: tel: Referral ID Status Reason Start [...] or prosecute any alcohol or drug abuse patient.[facility] the event this information is protected by the Federal Confidentiality of Alcohol and Drug Abuse Patient Records regulations: The Federal rules restrict any use of the information to criminally investigate or prosecute any alcohol or drug abuse patient.[facility] DaytonIn the event this information is protected by the Federal Confidentiality of Alcohol and Drug Abuse Patient Records regulations: The Federal rules restrict any use of the information to criminally investigate or prosecute any alcohol or drug abuse patient.[facility] Dayton[facility] the event this information is protected by the Federal Confidentiality of Alcohol and Drug Abuse Patient Records regulations: The Federal rules restrict any use of the information to criminally investigate or prosecute any alcohol or drug abuse patient.[facility] Dayton[facility] the event this information is protected by the Federal Confidentiality of Alcohol and Drug Abuse Patient Records regulations: The Federal rules restrict any use of the information to criminally investigate or prosecute any alcohol or drug abuse patient.[facility] DaytonIn the event this information is protected by the Federal Confidentiality of Alcohol and Drug Abuse Patient Records regulations: The Federal rules restrict any use of the information to criminally investigate or prosecute any alcohol or drug abuse patient.[facility] DaytonIn the event this information is protected by the Federal Confidentiality of Alcohol and Drug Abuse Patient Records regulations: The Federal rules restrict any use of the information to criminally investigate or prosecute any alcohol or drug abuse patient.[facility] DaytonIn the event this information is protected by the Federal Confidentiality of Alcohol and Drug Abuse Patient Records regulations: The Federal rules restrict any use of the information to criminally investigate or prosecute any alcohol or drug abuse patient.[facility] Care Teams (unrecognized sec tion and content) Roof Bolter Relationship Specialty Start Date End Date Ambrosio Monroy DO [address] [facility] [address] [place], [place] [phone] PCP - General Family Practice 05/21/17 Penny Cameron MD [address] [address] Consulting General Surgery 01/17/21 Gayle Scott MD [address] [place] [phone] Consulting Infectious Diseases 12/03/21 Ambrosio Monroy DO [address] [facility] [address] [place], [place] [address] Home Care Physician Internal Medicine 12/03/21 Roof Bolter Relationship Specialty Start Date End Date Ambrosio Monroy DO [address] [place] [address] PCP - General Family Practice 05/21/17 Penny Cameron MD [address] [address] Consulting General Surgery 01/17/21 Gayle Scott MD [address] [place] [address] Consulting Infectious Diseases 12/03/21 Ambrosio Monroy DO [address] [place] [address] Home Care Physician Internal Medicine 12/03/21 Roof Bolter Relationship Specialty Start Date End Date Ambrosio Monroy DO [address] [place] [address] PCP - General Family Practice 05/21/17 Penny Cameron MD [address] [address] Consulting General Surgery 01/17/21 Gayle Scott MD [address] [place] [address] Consulting Infectious Diseases 12/03/21 Ambrosio Monroy DO [address] [place] [address] Home Care Physician Internal Medicine 12/03/21 Team Status: Active Member Role Status Dates Dr. Ambrosio Monroy , DO Primary Care Provider Active Team Status: Inactive Member Role Status Dates Dr. Ambrosio Monroy DO Primary Care Provider Active Tab MURO Attending Provider Active Team Status: Active Member Role Status Dates Dr. Amborsio M Esterle , DO Primary Care Provider Active Tab MURO Attending Provider Active Roof Bolter Relationship Specialty Start Date End Date Ambrosio Monroy DO [address] [place] [address] PCP - General 06/07/17 Team Status: Inactive Member Role Status Dates Dr. Ambrosio Monroy DO Primary Care Provider Active Tab MURO Attending Provider, Referring Provi krish Active Roof Bolter Relationship Specialty Start Date End Date Yudith Monroya Jamie DO [address] [place] [address] PCP - General 06/07/17 Roof Bolter Relationship Specialty Start Date End Date Ambrosio Monroy DO [address] [place] [address] PCP - General 06/07/17 Roof Bolter Relationship Specialty Start Date End Date Ambrosio Monroy DO [address] [place] [address] PCP - General 06/07/17 Roof Bolter Relationship Specialty Start Date End Date Yudith Monroya Jamie DO [address] [place] [address] PCP - General 06/07/17 Roof Bolter Relationship Specialty Start Date End Date Macrina PierreedDO [address] [place], [place] [phone] Physician Physical Medicine & Rehab/PM&R 03/05/24 Roof Bolter Relationship Specialty Start Date End Date Ambrosio Monroy DO [address] [place] [address] PCP - General 06/07/17 Roof Bolter Relationship Specialty Start Date End Date [facility]rosio Monroy DO [address] [facility] [address] [place] [address] PCP - General 06/07/17 Roof Bolter Relationship Specialty Start Date End Date Ambrosio Monroy DO [address] [facility] [address] [place] [address] PCP - General 06/07/17 Roof Bolter Relationship Specialty Start Date End Date Vaishali Pierre DO [address] [place] [place] [address] Physician Physical Medicine & Rehab/PM&R 03/05/24 Roof Bolter Relationship Specialty Start Date End Date Ambrosio Monroy DO [address] [facility] [address] [place] [address] PCP - General 06/07/17 Dashawn Grimm MD [address] [address] Surgeon Urology 05/05/24 Roof Bolter Relationship Specialty Start Date End Date Ambrosio Monroy DO [address] [facility] [address] [place] [address] PCP - General 06/07/17 Dashawn Grimm MD [address] [address] Surgeon Urology 05/05/24 Roof Bolter Relationship Specialty Start Date End Date Vaishali Pierre DO [address] [place] [address] Physician Physical Medicine & Rehab/PM&R 03/05/24 Roof Bolter Relationship Specialty Start Date End Date Vaishali Pierre DO [address] [place] [place] [address] Physician Physical Medicine & Rehab/PM&R 03/05/24 Roof Bolter Relationship Specialty Start Date End Date Ambrosio Monroy DO [address] [place] [address] PCP - General 06/07/17 Dashawn Grimm MD [address] [address] Surgeon Urology 05/05/24 Roof Bolter Relationship Specialty Start Date End Date Vaishali Pierre DO [address] [place] [place] [address] Physician Physical Medicine & Rehab/PM&R 03/05/24 Roof Bolter Relationship Specialty Start Date End Date Ambrosio Monroy DO [address] [facility] [address] [place] [address] PCP - General 06/07/17 05/18/24 Tab Dupont [address] [place] [phone] PCP - General Internal Medicine 05/19/24 Dashawn Grimm MD [address] [address] Surgeon Urology 05/05/24 Roof Bolter Relationship Specialty Start Date End Date Ambrosio Monroy DO [address] [address] PCP - General 06/07/17 05/18/24 Roof Bolter Relationship Specialty Start Date End Date Vaishali Pierre DO [address] [place] [place] [address] Physician Physical Medicine & Rehab/PM&R 03/05/24 Otis Mejia MD [address] [place] [address] Physician Orthopaedic Surgery 06/11/24 Roof Bolter Relationship Specialty Start Date End Date Vaishali Pierre DO [address] [place] [address] Physician Physical Medicine & Rehab/PM&R 03/05/24 Otis Mejia MD [address] [place] [place] [address] Physician Orthopaedic Surgery 06/11/24 Roof Bolter Relationship Specialty Start Date End Date Tab Dupont [address] [place] [phone] PCP - General Internal Medicine 05/19/24 Dashawn Grimm MD [address] [place] [address] Surgeon Urology 05/05/24 Roof Bolter Relationship Specialty Start Date End Date Vaisahli Pierre DO [address] [place] [address] Physician Physical Medicine & Rehab/PM&R 03/05/24 Otis Mejia MD [address] [place] [address] Physician Orthopaedic Surgery 06/11/24 Roof Bolter Relationship Specialty Start Date End Date Vaishali Pierre DO [address] [place] [address] Physician Physical Medicine & Rehab/PM&R 03/05/24 Otis Mejia MD [address] [place] [address] Physician Orthopaedic Surgery 06/11/24 Roof Bolter Relationship Specialty Start Date End Date Vaishali Pierre DO [address] [place] [address] Physician Physical Medicine & Rehab/PM&R 03/05/24 Otis Mejia MD [address] [place] [address] Physician Orthopaedic Surgery 06/11/24 Roof Bolter Relationship Specialty Start Date End Date Macrina PierreedDO [address] [place] [address] Physician Physical Medicine & Rehab/PM&R 03/05/24 Otis Mejia MD [address] [place] [address] Physician Orthopaedic Surgery 06/11/24 Roof Bolter Relationship Specialty Start Date End Date Vaishali Pierre DO [address] [place] [address] Physician Physical Medicine & Rehab/PM&R 03/05/24 Otis Mejia MD [address] [place] [address] Physician Orthopaedic Surgery 06/11/24 Roof Bolter Relationship Specialty Start Date End Date JuanVaishali [address] [place] [address] Physician Physical Medicine & Rehab/PM&R 03/05/24 Otis Mejia MD [address] [place] [address] Physician Orthopaedic Surgery 06/11/24 Roof Bolter Relationship Specialty Start Date End Date ElysiajacqueVaishali [address] [place] [address] Physician Physical Medicine & Rehab/PM&R 03/05/24 Otis Mejia MD [address] [place] [address] Physician Orthopaedic Surgery 06/11/24 Giuliano Shultz DO [address] [place] [address] Physician Rheumatology 09/10/24 Faisal Simeon DO [address] [place] [address] Physician Physical Medicine & Rehab/PM&R 09/30/24 Roof Bolter Relationship Specialty Start Date End Date Tab Dupont [address] [place] [phone] PCP - General Internal Medicine 05/19/24 Dashawn Grimm MD [address] [place] [address] Surgeon Urology 05/05/24 Team Status: Inactive Member [...] December 07, 2024 End: December 07, 2024 Roof Bolter Relationship Specialty Start Date End Date Penny Cameron MD [address] [address] Consulting General Surgery 01/17/21 Gayle Scott MD [address] [facility] [address] [place] [phone] Consulting Infectious Diseases 12/03/21 Ambrosio Monroy MD [address] [place] [address] Home Care Provider Internal Medicine 12/03/21 Roof Bolter Relationship Specialty Start Date End Date Tab Dupont [address] [place] [phone] PCP - General Internal Medicine 05/19/24 Dashawn Grimm MD [address] [place] [address] 3 [place] [address] Surgeon Urology 05/05/24 Roof Bolter Relationship Specialty Start Date End Date Penny Cameron MD [address] [address] Consulting General Surgery 01/17/21 Gayle Scott MD [address] [facility] [address] [place] [phone] Consulting Infectious Diseases 12/03/21 Ambrsoio Monroy MD 195 [facility] 402 [place], [place] [phone] Home Care Provider Internal Medicine 12/03/21 Roof Bolter Relationship Specialty Start Date End Date Penny Cameron MD 970 [facility] [address] [place] [address] Consulting General Surgery 01/17/21 Gayle Scott MD 224 [facility] [address] [place] [phone] Consulting Infectious Diseases 12/03/21 Ambrosio Monroy MD 195 [facility] [address] [place], [place] [address] Home Care Provider Internal Medicine 12/03/21 Roof Bolter Relationship Specialty Start Date End Date Tab Dupont [address] [place] [phone] PCP - General Internal Medicine 05/19/24 Dashawn Grimm MD [address] [address] Surgeon Urology 05/05/24 Roof Bolter Relationship Specialty Start Date End Date Tab Dupont [address] [place] [phone] PCP - General Internal Medicine 05/19/24 Dashawn Grimm MD [address] [address] Surgeon Urology 05/05/24 Roof Bolter Relationship Specialty Start Date End Date Tab Dupont [address] [place] [address] PCP - General Internal Medicine 05/19/24 Dashawn Grimm MD 201 [facility] 3 [place] [address] Surgeon Urology 05/05/24 Roof Bolter Relationship Specialty Start Date End Date Juan VaishaliDO [address] [place] [address] Physician Physical Medicine & Rehab/PM&R 03/05/24 Otis Mejia MD [address] [place] [address] Physician Orthopaedic Surgery 06/11/24 Giuliano Shultz DO [address] [place] [address] Physician Rheumatology 09/10/24 Faisal Simeon DO [address] [place] [address] Physician Physical Medicine & Rehab/PM&R 09/30/24 Team [...] March 01, 2025 End: March 01, 2025 Roof Bolter Relationship Specialty Start Date End Date Tab Dupont [address] [place] [phone] PCP - General Internal Medicine 05/19/24 Dashawn Grimm MD [address] [address] Surgeon Urology 05/05/24 Team Status: Active Member Role Status Dates Dr. Ambrosio Monroy DO Primary Care Provider Active Start: March 01, 2025 Tab MURO Attending Provider Active Sta rt: March 01, 2025 Roof Bolter Relationship Specialty Start Date End Date Tab Dupont [address] [place] [phone] PCP - General Internal Medicine 05/19/24 Dashawn Grimm MD [address] [address] Surgeon Urology 05/05/24 Roof Bolter Relationship Specialty Start Date End Date Penny Cameron MD 970 [facility] [address] [place] [address] Consulting General Surgery 01/17/21 Gayle Scott MD 224 [address] [facility] [address] [place] [phone] Consulting Infectious Diseases 12/03/21 Ambrosio Monroy MD 195 [facility] [address] [place] [address] Home Care Provider Internal Medicine 12/03/21 Roof Bolter Relationship Specialty Start Date End Date Tab Dupont MD 3300 [facility] 8 [place] [address] PCP - General Internal Medicine 03/20/25 Penny Cameron MD [address] [facility] [address] [place] [address] Consulting General Surgery 01/17/21 Gayle Scott MD [address] [facility] [address] [place] [phone] Consulting Infectious Diseases 12/03/21 Ambrosio Monroy MD 195 [facility] [address] [place] [address] Home Care Provider Internal Medicine 12/03/21 Roof Bolter Relationship Specialty Start Date End Date Tab Dupont [address] [place] [phone] PCP - General Internal Medicine 05/19/24 Dashawn Grimm MD 201 [facility] 3 [place] [address] Surgeon Urology 05/05/24 Goals (unrecognized section and [...] Held - Provider: Pedro Luis Matos MD) 09 (Dose Auto Held - Provider: Pedro [...] 0828 (Given - Provider: Allie Griffin RN) 0905 (Given - Provider: Faby Maxwell, RN) fluconazole in NS (Diflucan) IVPB 400 mg (CANCELED) 400 mg, IntraVENous, at 100 mL/hr, Administer over 120 Minutes, Every 24 hours, First dose on Fabiola 04/14/24 at 2300, premix bag, Coverage: Fungal NOS, [...] 2106 (Given - Provider: Marino Trevizo, LIBRADO) 2028 (Given - Provider: Erika Li RN) Insulin [...] RN) 0904 (Given - Provider: Faby Maxwell, RN)1258 (Given - Provider: Faby Maxwell, LIBRADO)1747 (Given - Provider: Faby Maxwell, RN) Insulin [...] Meropenem Med-Surg/Crit Care Init Dosing HARINDER 8, Drum Puller cl >=50, 3h Mini-Bag Plus bag, Suspected [...] RN) 0036 (New Bag - Provider: Erika Li, RN)0336 (Stopped - Provider: Erika Li RN) [...] refused) 0900 (Not Given - Provider: Allie Grfifin RN - Reason: Patient/family refused) 0904 (Not [...] Griffin, LIBRADO)1525 (Given - Provider: Allie Griffin, RN)2106 (Given - Provider: Marino Trevizo RN) 0828 (Given - Provider: Allie Griffin RN)1620 (Given - Provider: Allie Griffin RN)2027 (Given - Provider: Erika Li, LIBRADO) 0904 (Given - Provider: Faby Maxwell, RN)1300 (Given - Provider: Faby Maxwell, RN) sodium chloride 0.9% (NS) flush 10 mL 10 mL, IntraVENous, Every 12 hours scheduled (2 times per day), First dose on Fabiola 04/14/24 at 2245 0834 (Given - Provider: Allie Griffin RN)2112 (Given - Provider: Marino Trevizo RN) 0921 (Given - Provider: Allie Griffin RN)2100 (Given - Provider: Erika Li, LIBRADO) 0905 (Given - Provider: Faby Maxwell, RN) tamsulosin (Flomax) 24 hr capsule 0.4 mg [...] PRN, opioid reversal, respiratory depression, Starting on Thu24 at 2017, +++ For RR <10, pinpoint pupils, over sedation for opioid reversal - MUST notify transmission assembler provider immediately after first dose, may give [...] times daily PRN, chronic pain, Starting on Fabiola 04/14/24 at 2240 0831 (Given - Provider: Allie Griffin RN)1526 (Given - Provider: Allie Griffin RN) 1619 (Given - Provider: Allie Griffin, RN)2028 (Given - Provider: Erika Li, RN) 0405 (Given - Provider: Erika Li, RN) sodium chloride 0.9 % infusion 5-250 [...] or split. 1910 (Given - Provider: Carmel Merritt RN) 0839 (Given - Provider: Bianca Rodgers RN) ceFAZolin in dextrose 4% (Ancef) IVPB 2,000 mg (COMPLETED) 2,000 mg, IntraVENous, Administer over 30 Minutes, Hemp Fiber Taker Off to O.R., On Fabiola 05/05/24 at 1115, [...] hours scheduled (Daily), First dose on Fabiola 1/24 at 1700, Indication of Use: Prophylaxis-DVT/PE, Indications: [...] high blood sugar, Surgery Patient, Starting on Fabiola 05/05/24 at 1103, For 3 doses, Preprocedure, Medium [...] sedation for opioid reversal - MUST notify transmission assembler provider immediately after first dose, may give [...] PRN, moderate pain (4-6), Starting on Fabiola 8/1/24 at 1657, For 1 dose, Recovery (only), [...] Oral, PRN, severe pain (7-10), Starting on Thu05/05/24 at 1657, For 1 dose, Recovery (only), PHASE II Scheduled Medication Order 05/20/2024 05/21/2024 05/22/2024 aspirin EC tablet 81 mg 81 mg, Oral, Daily, First dose on Thu05/18/24 at 0900, Do not crush, chew, or split. 0839 (Given - Provider: Dedrick Martin RN) 0837 (Given - Provider: Elly Cormier RN) 08 (Given - Provider: Elly Cormier RN) cefepime [...] Oral, Nightly, First dose on Thu05/18/24 at 2099 2045 (Given - Provider: Aleksandra Pinon RN) [...] Daily PRN, constipation, Starting on Thu05/18/24 at 0339, Do not give within 1 hour of antacids, milk, or dairy products. Do not crush, chew, or split. calcium carbonate (Tums) chewable tablet 1,000 mg 1,000 mg, Oral, Every 8 hours PRN, indigestion, heartburn, Starting on Thu05/18/24 at 0339 cyclobenzaprine (Flexeril) tablet 10 mg 10 mg, [...] sedation for opioid reversal - MUST notify transmission assembler provider immediately after first dose, may give [...] sodium chloride 0.9 % 100 mL IVPB (Add-Wallingford) 3,000 mg, IntraVENous, at 200 mL/hr, Administer over 30 Minutes, Every 6 hours, First dose on Thu04/26/25 at 1230, ADD-Wallingford bag, Suspected Indication (Select all that apply): Bone and Joint Infection 1519 (New Bag - Provider: Christel Brower RN)1616 (Stopped - Provider: Christel Brower RN)2105 (New Bag - Provider: Valarie King RN)2155 (Stopped - Provider: Valarie King, LIBRADO) 0253 (New Bag - Provider: Valarie King RN)0531 (Stopped - Provider: Valarie King RN)0853 (New Bag - Provider: Cheryl [place] RN)0947 (Stopped - Provider: Cheryl [place], RN)1506 (New Bag - Provider: Cheryl Foster RN)1619 (Stopped - Provider: Cheryl Foster RN)2125 (New Bag - Provider: Valarie King RN) 0013 (Stopped - Provider: Valarie King RN)0402 (New Bag - Provider: Valarie King RN)0441 (Stopped - Provider: aVlarie King RN)1107 (New Bag - Provider: Joann [...] (Unheld by provider - Provider: Berhane Moreno MD)2102 (Given - Provider: Valarie King RN) 0853 [...] RN) 1356 (Given - Provider: Cheryl [place], RN) 1322 (Given - Provider: Joann King, RN) DULoxetine (Cymbalta) DR capsule 30 mg 30 mg, Oral, Daily, First dose on Thu04/22/25 at 0800, Do not crush or chew. 0807 (Given - Provider: Christel Brower RN) 0853 (Given - Provider: Cheryl Foster, LIBRADO) 0908 (Given - Provider: Joann King, LIBRADO) ferrous sulfate tablet 325 mg 325 [...] RN) 0907 (Given - Provider: Joann King, RN)1321 (Given - Provider: Joann King, RN)1745 (Given - Provider: Joann King, LIBRADO) Insulin [...] Provider: Christel Brower RN)1201 (Stopped - Provider: Chrsitel Brower RN) 1024 (New Bag - Provider: [...] Christel Brower RN)2102 (Given - Provider: Valarie King, LIBRADO) 0852 (Given - Provider: Cheryl Foster RN)1354 [...] 0900 0807 (Given - Provider: Christel Brower, LIBRADO)1244 (Given - Provider: Christel Brower RN)1704 (Given [...] King, LIBRADO)1321 (Given - Provider: Joann King, LIBRADO)2100 (Canceled [...] IV Fluids Infusing)1745 (Given - Provider: Joann King RN) tamsulosin (Flomax) 24 hr capsule 0.4 mg [...] Provider: Christel Brower RN)1508 (Stopped - Provider: Chritsel Brower RN) 0046 (New Bag - Provider: Valarie King RN)0247 (Stopped - Provider: Valarie King RN)1222 (New Bag - Provider: Cheryl Foster, RN)1427 (Stopped - Provider: Cheryl Foster RN) [...] Brower RN)2100 (Given - Provider: Valarie King, RN) 0853 (Given - Provider: Cheryl Foster, RN)2124 (Given - Provider: Valarie King, RN) dextrose [...] BE BASED ON THE PRIMARY CLINICAL RECORDS. [employer] [facility]. provides no warranty or guarantee of the accuracy or completeness of information in this document.
[2025-05-25 09:59] LABS: CRP 48.60 mg/L (0.0-3.0); Vancomycin, Trough Level 17.3 ug/mL (5.0-15.0)
== END | disposition home or self-care (01) ==
LOC: OLS.SANC 05:00
PROVIDERS: PCP Family Medicine; Visit Provider Internal Medicine
DX: Z79.899 Other long term (current) drug therapy (principal)
CPT/HCPCS: 36415; 80202; 85652; 86140

== ENCOUNTER → 2025-05-29 | Outpatient (REF) | payer MEDICARE, MEDICAID, SELFPAY ==
--- OUTSIDE RECORDS SUMMARY | 2025-05-29 04:26 | XMS RPT_ITS | CCD ---
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 Name Role Phone YARITZA, GALE [...] Unavailable Unavailable Esterle, Ambrosio Unavailable Unavailable Meliton Blas Unavailable Unavailable Esterle, Ambrosio Unavailable Unavailable Esterle, Ambrosio Unavailable Unavailable Esterle, Ambrosio M Primary Care Provider YARITZA, GALE Admitting Unavailable ORLANDO PATEL Consulting Unavailable ESTERLE, AMBROSIO M Primary Care Unavailable YARITZA, GALE Attending Unavailable ESTERLE, AMBROSIO M Primary Care Unavailable YARITZA, GALE Referring Unavailable YARITZA, GALE Attending Unavailable Unavailable Unavailable Esterle DO, Ambrosio M Primary Care Provider Penny Cameron MD Unavailable [phone] Gayle Scott MD Unavailable Esterle DO, Ambrosio M Unavailable [phone] Esterle DO, Ambrosio M Primary Care Provider Unavailable Primary Care Provider Unavailabl e Placeway DO, Vaishali Unavailable Esterle DO, Ambrosio M Primary Care Provider Jorge IRWIN, Dashawn Enriquez Unavailable Ambrosio Monroy DO Primary Care Provider [phone] Tab Dupont Primary Care Provider [phone] Otis Mejia MD Unavailable Giuliano Shultz DO [...] Ambrosio Monroy DO Primary Care Provider [phone] Tab Joshi Attending Provider Unavailab Tab Benson Referring Provider Unavailab Dr. Daisy Li MD Attending Provider Dr. Daisy Garay MD Referring Provider Unava Dr. Ambrosio Sanchez DO Primary Care Provider [phone] Tab Joshi Attending Provider Unavailab Tab Benson Referring Provider Unavailab Dr. Daisy Li MD Attending Provider Dr. Daisy Garay MD Referring Provider Penny De La Cruz MD Unavailable Gayle Scott MD Unavailable Ambrosio Monroy MD Unavailable Dr. Ambrosio Monroy DO Primary Care Provider [phone] Tab Joshi Attending Provider Unavailab KRISTINE Foster Referring Unavailable MILAD GOODSON Attending Unavailable MILAD GOODSON Attending Unavailable Tab Dupont MD Primary Care Provider HOWARD GAMA Admitting Unavail able GAYLE SCOTT Consulting Unavailable CHUY PADILLA Attending Unavailable TAB DUPONT Primary Care Unavaila fahad HERBERT, ANMOL PINON Referring Unavail able LUPILLO, ANMOL PINON Attending Unavail able LUPILLO, ANMOL PINON Admitting Unavail able TAB DUPONT Primary Care Unavaila YOANA Jacobs Attending Unavailable KIAH PETER Primary Care Unavailable KATSAROS, PETER Primary Care Unavailable GEORGETTE BUENO Admitting Unavailable BERHANE MORENO Attending Unavailable JO-ANN ORTIZ Consulting Unavailable Katsaros Tab MURO Attending Unavailable Esterle, Ambrosio M Primary Care Unavailable Katsaros Tab MURO Attending Unavailable Esterle, Ambrosio M Primary Care Unavailable Katsaros Tab MUOR Attending Unavailable Esterle, Ambrosio M Primary Care Unavailable Adriannesaros Tab MURO Referring Unavailable Katsaros Tab MURO Attending Unavailable Esterle, Ambrosio M Primary Care Unavailable Katsaros Tab MURO Attending Unavailable Esterle, Ambrosio M Primary Care Unavailable Katsaros Tab MURO Attending Unavailable Esterle, Ambrosio M Primary Care Unavailable Katsaros Tab MURO Attending Unavailable Esterle, Ambrosio M Primary Care Unavailable Katsaros Tab MURO Attending Unavailable Esterle, Ambrosio M Primary Care Unavailable Katsaros Tab MURO Referring Unavailable Esterle, Ambrosio M Primary Care Unavailable Katsaros Tab MURO Attending Unavailable Esterle, Ambrosio M Primary Care Unavailable Katsaros Tab MURO Attending Unavailable Katsaros Tab MURO Attending Unavailable Esterle, [...] Unavailable Katsaros Tab MURO Attending Unavailable Katsaros Tab MURO Attending Unavailable Ambrosio Monroy Primary Care Unavailable Tab Joshi Attending Unavailable Ambrosio Monroy Primary Care Unavailable Tab Joshi Attending Unavailable Ambrosio Monroy Primary Care Unavailable Tab Joshi Attending Unavailable Ambrosio Monroy Primary Care Unavailable Daisy Henry Attending Unavailable Daisy Henry Referring Unavailable Ambrosio Monroy Primary Care Unavailable Medications [...] sodium chloride 0.9 % 100 mL IVPB (3 sources) Start: 04-28-2025 End: 06-06-2025 take 3000 mg intravenously every six hours ampicillin-sulbac marquis 3,000 mg in sodium chloride 0.9 % 100 mL IVPB Infuse 3,000 mg into a venous catheter every 6 hours. stop date of antibiotic is 06/06/2025 04/28/2025 06/06/2025 Active apixaban 5 mg oral tablet (17 sources) Factor Xa Inhibitor Start: 02-22-2025 End: 04-29-2025 take 1 tablet by mouth twice daily apixaban (Eliquis) 5 MG tablet Take 5 mg by mouth twice a day. 02/22/2025 Active ascorbic acid 500 mg oral tablet [...] Penem Antibacterial, Renal Dehydropeptidase Inhibitor Start: 03-30-2024 imipenem-cilastati n (PRIMAXIN) 250 MG injection 03/30/2024 Active cyclobenzaprine hydrochloride 10 mg oral tablet (20 sources) Muscle Relaxant Start: 12-17-2021 End: 04-29-2025 take 1 tablet by mouth three times daily as needed for muscle spasms cyclobenzaprine (Flexeril) 10 MG tablet Take 10 mg by mouth 3 times daily as needed for muscle spasms. 12/17/2023 Active Comment on above: Take 1 tablet by jeison th three times daily. 24 hr dapagliflozin 10 mg / metFORMIN [...] Inject 825 mg intravenously q [place]. [address] mg 0 01/24/2022 02/25/2022 Active Comment on [...] days. 20 tablet 0 10/25/2020 10/30/2020 Active docusate sodium 50 mg / sennosides, senior care 8.6 mg oral tablet (20 sources) Start: 02-22-2025 End: 04-29-2025 take 8.6-50 mg by mouth twice daily senna-docusate (Cheyenne-Colace) 8.6-50 MG tablet Take 2 tablets by mouth twice a day. 02/22/2025 Active Start: 01-24-2022 take 1 tablet by jeison twice daily senna-docusate (SENNA-S) 8.6-50 mg per tablet Take 1 tablet by mouth twice daily. 01/24/2022 Active Comment on above: Take 1 tablet by jeison twice daily. DULoxetine 30 mg delayed release oral capsule (20 sources) Serotonin and Norepinephrine Reuptake Inhibitor Start: End: take 1 capsule by mouth once daily DULoxetine (Cymbalta) [address] capsule Take 30 mg by mouth daily. 11/06/2024 Active Start: 03-31-2024 duloxetine (CY MBALTA) 60 MG capsule 03/31/2024 Active Start: 06-18-2017 take 1 capsule by [facility] once daily DULoxetine (CYMBALTA) 60 MG extended release capsule take 1 capsule by mouth once daily 0 06/18/2017 Active gabapentin 300 mg oral capsule (6 [...] 0 01/24/2022 Active take 1 capsule by [facility] twice daily gabapentin (NEURONTIN) 300 MG capsule Take 300 mg by mouth 2 times daily 0 Active Comment on above: Take 1 capsule by [facility] every 12 hours for 30 days. [...] Comment on above: Take 1 tablet by [facility] every 6 hours as needed (Anxiety). hyoscyamine [...] Inject 5 Units subcu taneously w MEALS. linagliptin 5 mg oral tablet (20 sources) Dipeptidyl Peptidase 4 Inhibitor Start: 11-14-2024 End: 04-22-2025 linaGLIPtin (Tradjenta) 5 MG tablet 5 mg daily. 11/14/2024 Active Start: 08-18-2020 End: 04-20-2024 magnesium hydroxide 80 mg/ml oral suspension (20 sources) Start: 10-24-2020 take 30 mL by mouth once daily [...] Start: ondansetron (ZOFRAN-ODT) disintegrating tablet 4 mg oxyCODONE hydrochloride 15 mg oral tablet (20 sources) Opioid Agonist Start: End: take 15 mg by mouth four times [...] mouth 4 times daily. 12 tablet 04/28/2025 Active Start: 01-24-2022 take 1 tablet by jeison th every eight hours oxyCODONE ER (OXYCONTIN) 40 mg 12 hr tablet Take 1 tablet by mouth every 8 hours for 10 days. 0 01/24/2022 Active Start: 10-24-2020 take 5 mg by mouth e very four hours as needed for pain 5 mg, Oral, EVERY 4 HOURS PRN, Pain Moderate (4-6), Starting 10/24/20 at 1518, Post-op take 15 mg by mouth three times daily oxycodone HCl (OXYCODONE ORAL) Take 15 mg by mouth three times daily. Active End: 05-19-2024 oxyCODONE ER (OxyCONTIN) 15 MG 12 hr tablet Do not crush, chew, or split. 05/19/2024 Discontinued Comment on above: Take 1 tablet by jeison th every 8 hours for 10 days. pregabalin 200 mg oral capsu le (20 sources) Start: 04-14-2024 End: 04-20-2024 Start: 01-29-2024 End: 04-28-2026 take 1 capsule by mouth three times daily pregabalin (Lyrica) 200 MG capsule Indications: Lumbar stenosis with neurogenic claudication Take 1 capsule (200 mg) by mouth 3 times daily. 04/28/2025 04/28/2026 Active Start: 12-29-2023 End: 01-29-2024 take 1 capsule [...] by mouth 3 times daily. 05/19/2024 Discontinued Semaglutide (RYBELSUS) 7 MG TABS (1 source) [...] Comment on above: Take 1 tablet by [facility] four times daily as needed. sulfamethoxazole 800 mg / trimethoprim 160 mg oral tablet (11 sources) Dihydrofolate Reductase Inhibitor Antibacterial, Sulfonamide Antimicrobial Start: End: take 1 tablet by mouth every twelve hours sulfamethoxazole-tr imethoprim (Bactrim DS) 800-160 MG tablet 1 tablet every 12 hours. 03/01/2025 04/29/2025 Discontinued (Stop taking at discharge) tamsulosin hydrochloride 0.4 mg oral capsule (20 sources) alpha-Adrenergic Savi Start: take 1 capsule by mouth once daily tamsulosin (Flomax) 0.4 MG 24 hr capsule Take 1 capsule (0.4 mg) by mouth daily. 04/29/2025 Active Start: 04-29-2025 take 1 capsule by mo [facility] once daily tamsulosin (Flomax) 0.4 MG 24 [...] on above: Take 1 capsule by mo [facility] once daily. therapeutic multivitamin-minera ls (THERA-M PLUS) 9 mg iron-400 mcg tablet (3 sources) therapeutic multivitamin-under ground miner als (THERA-M PLUS) 9 mg iron-400 mcg tablet Take 1 tablet by mouth once daily. Active Vancomycin (7 sources) Glycopeptide Antibacterial Start: End: take 1500 [...] sodium chloride 0.9 % 100 mL IVPB (Add-Clay) (2 sources) Start: 04-26-2025 End: 04-29-2025 take 3000 mg intravenously every six hours 3,000 mg, IntraVENous, at 200 mL/hr, Administer over 30 Minutes, Every 6 hours, First dose on Thu04/26/25 at 1230, ADD-Clay bag, Suspected Indication (Select all that apply): Bone and Joint Infection betamethasone 0.5 mg/ml / clotrimazole 10 mg/ml topical cream (13 sources) Azole Antifungal, Corticosteroid Start: 11-17-2023 End: 05-22-2024 clotrimazole-beta methasone (Lotrisone) cream 11/17/2023 05/22/2024 Discontinued (Stop taking [...] Comment on above: 1 Suppository by REC CARRIE route once daily as needed. Take 1 [...] 8 HOURS, 2 doses, First dose on 10/24/20 at 1845, Last dose on Fabiola 10/25/20 at 0245, Post-op cefepime (Maxipime) 2,000 mg [...] daily. 05/22/2024 Discontinued (Stop taking at discharge) docusate sodium 100 mg oral capsule (20 [...] Comment on above: Take 1 capsule by [facility] twice daily. 0.4 ml enoxaparin sodium 100 mg/ml prefilled syringe (11 sources) Low Molecular Weight Heparin Start: 05-18-20 End: 05-22-20 inject 40 mg by subcutaneous injection every [...] not have IV access., Starting on Fabiola 05/05/24 at 1821, After administration, attempt intravenous access [...] IntraVENous, IMG once PRN, contrast, Starting on 04/22/25 at 0007, For 1 dose iron sucrose (Venofer) 200 mg in sodium chloride 0.9 % 100 mL IVPB (2 sources) Start: 04-26-2025 End: 04-28-2025 200 mg, IntraVENous, at 100 mL/hr, Administer over 60 Minutes, Every 24 hours, First dose on 04/26/25 at 0945, For 2 days, Observe for [...] lidocaine PF 1 % injection 1 mL 100 ml magnesium sulfate 10 mg/ml injection [...] Infection midodrine hydrochloride 5 mg oral tablet (17 sources) alpha-Adrenerg ic Agonist Start: 04-22-2025 End: 04-29-2025 take 10 mg by mouth three times daily 10 mg, Oral, 3 times daily, First dose on Thu04/22/25 at 0900 Start: 02-22-2025 take 1 tablet [...] ondansetron ODT (Zofran-ODT) disintegrating tablet 4 mg Petrolatum (2 sources) Start: 04-28-2025 End: 04-29-2025 Topical, 2 times daily PRN, dry skin, Starting on Thu04/28/25 at 1105, Apply to bilat feet. phenazopyridine hydrochloride 100 mg oral tablet (2 sources) Start: 05-05-2024 End: 05-06-2024 take 1 tablet by mouth every six hours as needed for muscle spasms 100 mg, Oral, Every 6 hours PRN, bladder spasms, Pain, Starting on Thu05/05/24 at 1658 piperacillin 3000 mg / tazobactam 375 mg injection (4 sources) Penicillin-clas s Antibacterial, beta Lactamase Inhibitor Start: 05-18-2024 End: 05-18-2024 take 3375 mg intravenously every eight hours [...] for gram positive cocci polyethylene glycol 3350 10260 mg powder for oral solution (20 sources) Osmotic Laxative Start: 04-22-2025 End: 04-29-2025 17 g, Oral, 2 times daily, First dose on Thu04/22/25 at 0245 Start: 04-28-2023 polyethylene g lycol 3350 17 gram packet Take 1 Packet by mouth twice daily. Dissolve dose in 4 - 8 ounces of liquid and take as directed. 04/28/2023 Active Start: 01-24-2022 End: 04-29-2025 take 17 g by mouth in the morning polyethylene glycol, PEG, 3350 (Miralax) 17 g packet Take 17 g by mouth in the morning and 17 g in the evening. 04/28/2023 Active Comment on above: Take 1 Packet by [facility] once daily as needed. Dissolve dose in [...] discharge) Start: 01-24-2022 take 1 tablet by [facility] once daily potassium chloride ER (K-DUR, KLOR-CON) 20 mEq tablet Take 1 tablet by mouth once daily. 01/24/2022 Active Comment on above: Take 1 tablet by [facility] once daily. SITagliptin 100 mg oral tablet (3 sources) Dipeptidyl Peptidase 4 Inhibitor Start: 2 take 1 tablet by mouth once daily SITagliptin (JANUVIA) 100 mg tablet Take 1 tablet by mouth once daily. 0 12/18/2021 Active Comment on above: Take 1 tablet by [facility] once daily. 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] Onset: 5 02-17-2025 Episodic Other aftercare (2 sources) Other intermediate designer (current) drug therapy; Translations: [Other intermediate (current) drug therapy] Onset: 5 Episodic Other [...] [Urinary tract infection, site not specified] Onset: 2 01-04-2022 Episodic Past or Other Problems Problem [...] Onset: 05-27-2017 Episodic Other aftercare (1 source) prison (current) use of insulin; Translations: [Type 2 diabetes mellitus with hyperglycemia, with long-term current use of insulin (HCC)] Onset: 01-04-2022 Episodic Other PRESS MANAGER infection and poliomyelitis (8 sources) Epidural abscess; [...] Name Value Interpretation Reference Range Facility 36on 05-25-2025 36 Received a call from nurse Nikki [phone] stating Vanc tr this week is 17 and asking if IV Vanc can be hung. Told her yes, hang Vanc as trough is within therapeutic range. Per Nikki, they will obtain another Vanc level on 05/29. Normal [facility] CRPon 05-25-2025 C-REACTIVE PROT 48.60 mg/L High 0.0-3.0 [facility] Comment on above: Order Comment: SRIKANTH TER SPECIMEN Performed By: #### L 400.0001, M1 #### [facility] [address] [place], [place], [id number] Erythrocyte Sed Rateon 05-25 SED RATE 57 mm/hr High 0-20 [facility] Comment on above: Order Comment: SRIKANTH TER SPECIMEN Performed By: #### L 400.0001, M1.2199 #### [facility] [address] [place], [place], [address] Vancomycin, Trough Levelon 0 05-25-2025 VANCO, TROUGH 17.3 ug/mL High 5.0-15.0 [facility] Comment on above: Order Comment: SRIKANTH TER [...] (Ventilator/Healtcare Associated) -Sepsis PLEASE CONTACT PHARMACY SERVICES (#[id number]) FOR INTERPRETATION OF RESULTS. Performed By: #### L 400.0001, #### [facility] [address] [place] [place], [address] 36on 05-24-2025 36 Received a call from Clement nurse at [facility]. She stated the labs that were supposed to be drawn for patient were missed this week and asked if the same dose of vanc should be given today. She stated that the labs will be drawn tomorrow 05/25/25 and office will be notified. Patient gets vanc dose 9am and 9pm daily. The trough will be drawn before vanc dose tomorrow am. Made Clement aware that facility can continue same dose of vanc until this weeks labs are received. Normal [facility] CBC-Complete Blood Cnt No Di ffon 05-22-2025 Erythrocyte distribution width (RBC) [Ratio] 16.3 % High 11.6-14.6 [facility] Comment on above: Order Comment: SRIKANTH TER SPECIMEN Performed By: #### L 400.0001, M1 #### [facility] [address] [place], [address] Hematocrit (Bld) [Volume fraction] 38.6 % Low 40-54 [facility] Comment on above: Order Comment: SRIKANTH TER SPECIMEN Performed By: #### L 400.0001, #### [facility] [address] [place], [address] Hemoglobin (Bld) [Mass/Vol] 12.2 g/dL Low 13.0-16.5 [facility] Comment on above: Order Comment: SRIKANTH TER SPECIMEN Performed By: #### L 400.0001, #### [facility] [address] [place], [address] MCH (RBC) [Entitic mass] 29.1 pg Normal 27.0-32.0 [facility] Comment on above: Order Comment: SRIKANTH TER SPECIMEN Performed By: #### L 400.0001, #### [facility] [address] [place], [address] MCHC (RBC) [Mass/Vol] 31.6 g/dL Low 32-36 [facility] Comment on above: Order Comment: SRIKANTH TER SPECIMEN Performed By: #### L 400.0001, #### [facility] [address] [place], [address] MCV (RBC) [Entitic vol] 92.1 fL Normal 80-94 [facility] Comment on above: Order Comment: SRIKANTH TER SPECIMEN Performed By: #### L 400.0001, #### [facility] [address] [place], [address] Platelet mean volume (Bld) [Entitic vol] 11.1 fL Normal 6.2-12.0 [facility] Comment on above: Order Comment: SRIKANTH TER SPECIMEN Performed By: #### L 400.0001, #### [facility] [address] [place], [address] Platelets (Bld) [#/Vol] 226 10*3/uL Normal 150-450 [facility] Comment on above: Order Comment: SRIKANTH TER SPECIMEN Performed By: #### L 400.0001, #### [facility] [address] [place], [address] RBC (Bld) [#/Vol] 4.19 10*6/uL Low 4.6-6.2 [facility] Comment on above: Order Comment: SRIKANTH TER SPECIMEN Performed By: #### L 400.0001, #### [facility] [address] [place], [address] RDW SD 55.2 fl High 35.1-43.9 [facility] Comment on above: Order Comment: SRIKANTH TER SPECIMEN Performed By: #### L 400.0001, #### [facility] [address] [place], [address] WBC (Bld) [#/Vol] 7.5 10*3/uL Normal 4.4-11.0 [facility] Comment on above: Order Comment: SRIKANTH TER SPECIMEN Performed By: #### L 400.0001, #### [facility] [address] [place], [address] Comprehensive Metabolic Prof ilon 05-22-2025 Albumin [Mass/Vol] 3.1 g/dL Low 3.4-4.8 [facility] Comment on above: Order Comment: SRIKANTH TER SPECIMEN Performed By: #### L 400.0001, #### [facility] [address] [place], [address] Albumin/Globulin [Mass ratio] 0.9 {ratio} Normal 0.9-2.4 [facility] Comment on above: Order Comment: SRIKANTH TER SPECIMEN Performed By: #### L 400.0001, #### [facility] [address] [place], [address] ALK PHOS 124 U/L Normal 40-129 [facility] Comment on above: Order Comment: SRIKANTH TER SPECIMEN Performed By: #### L 400.0001, #### [facility] [address] [place], [address] ALT [Catalytic activity/Vol] 15 U/L Normal <=46 [facility] Comment on above: Order Comment: SRIKANTH TER SPECIMEN Performed By: #### L 400.0001, #### [facility] [address] [place], [address] AST [Catalytic activity/Vol] 17 U/L Normal <=37 [facility] Comment on above: Order Comment: SRIKANTH TER SPECIMEN Performed By: #### L 400.0001, #### [facility] [address] [place], [address] Bilirubin [Mass/Vol] 0.31 mg/dL Normal 0.00-1.[address] [facility] Comment on above: Order Comment: SRIKANTH TER SPECIMEN Performed By: #### L 400.0001, #### [facility] [address] [place], [address] BUN/CRE 15.9 RATIO Normal 10-20 [facility] Comment on above: Order Comment: SRIKANTH TER SPECIMEN Performed By: #### L 400.0001, #### [facility] [address] [place], [address] Calcium [Mass/Vol] 8.7 mg/dL Normal 7.6-11.0 [facility] Comment on above: Order Comment: SRIKANTH TER SPECIMEN Performed By: #### L 400.0001, #### [facility] [address] [place], [address] Chloride [Moles/Vol] 106 mmol/L Normal 98-[address] [facility] Comment on above: Order Comment: SRIKANTH TER SPECIMEN Performed By: #### L 400.0001, #### [facility] [address] [place], [address] CO2 [Moles/Vol] 20.9 mmol/L Low 21.0-32.0 [facility] Comment on above: Order Comment: SRIKANTH TER SPECIMEN Performed By: #### L 400.0001, #### [facility] [address] [place], [address] Creatinine [Mass/Vol] 0.50 mg/dL Low 0.70-1.20 [facility] Comment on above: Order Comment: SRIKANTH TER SPECIMEN Performed By: #### L 400.0001, #### [facility] [address] [place], [address] GAP 12 Normal 5-15 [facility] Comment on above: Order Comment: SRIKANTH TER SPECIMEN Performed By: #### L 400.0001, #### [facility] [address] [place], [address] GFR/1.73 sq M.predicted among non-blacks MDRD (S/P/Bld) [Vol rate/Area] 114 mL/min/{1.73_m2} Normal >60 [facility] Comment on above: Order Comment: SRIKANTH TER SPECIMEN Result Comment: mL/m in/1.73m2 CKD-EPI Creatinine Equation (2020) Performed By: #### L 400.0001, #### [facility] [address] [place], [address] Globulin (S) [Mass/Vol] 3.6 g/dL Normal 2.2-4.2 [facility] Comment on above: Order Comment: SRIKANTH TER SPECIMEN Performed By: #### L 400.0001, #### [facility] [address] [place], [address] Glucose [Mass/Vol] 109 mg/dL High 70-99 [facility] Comment on above: Order Comment: SRIKANTH TER SPECIMEN Performed By: #### L 400.0001, M100.2200 #### [facility] [address] [place], [address] Potassium [Moles/Vol] 3.8 mmol/L Normal 3.3-5.1 [facility] Comment on above: Order Comment: SRIKANTH TER SPECIMEN Performed By: #### L 400.0001, M100.2200 #### [facility] [address] [place], [address] Sodium [Moles/Vol] 139 mmol/L Normal 133-145 [facility] Comment on above: Order Comment: SRIKANTH TER SPECIMEN Performed By: #### L 400.0001, M1.0 #### [facility] [address] [place], [address] T PROT 6.7 g/dL Normal 5.9-8.4 [facility] Comment on above: Order Comment: SRIKANTH TER SPECIMEN Performed By: #### L 400.0001, M100.2200 #### [facility] [address] [place], [address] Urea nitrogen [Mass/Vol] 8 mg/dL Normal 4-19 [facility] Comment on above: Order Comment: SRIKANTH TER SPECIMEN Performed By: #### L 400.0001, M100.2200 #### [facility] [address] [place], [address] CBC-Complete Blood Cnt No Di ffon 05-15-2025 Erythrocyte distribution width (RBC) [Ratio] 16.4 % High 11.6-14.6 [facility] Comment on above: Order Comment: 301.2 Performed By: #### L 100.0500, L500.4050, L501.6710, L101.9900 #### [facility] [address] [place], [address] Hematocrit (Bld) [Volume fraction] 39.5 % Low 40-54 [facility] Comment on above: Order Comment: 301.2 Performed By: #### L 100.0500, L500.4050, L501.6710, L101.9900 #### [facility] [address] [place], [address] Hemoglobin (Bld) [Mass/Vol] 12.6 g/dL Low 13.0-16.5 [facility] Comment on above: Order Comment: 301.2 Performed By: #### L 100.0500, L500.4050, L501.6710, L101.9900 #### [facility] [address] [place], [address] MCH (RBC) [Entitic mass] 29.3 pg Normal 27.0-32.0 [facility] Comment on above: Order Comment: 301.2 Performed By: #### L 100.0500, L500.4050, L501.6710, L101.9900 #### [facility] [address] [place], [address] MCHC (RBC) [Mass/Vol] 31.9 g/dL Low 32-36 [facility] Comment on above: Order Comment: 301.2 Performed By: #### L 100.0500, L500.4050, L501.6710, L101.9900 #### [facility] [address] [place], [address] MCV (RBC) [Entitic vol] 91.9 fL Normal 80-94 [facility] Comment on above: Order Comment: 301.2 Performed By: #### L 100.0500, L500.4050, L501.6710, L101.9900 #### [facility] [address] [place], [address] Platelet mean volume (Bld) [Entitic vol] 10.2 fL Normal 6.2-12.0 [facility] Comment on above: Order Comment: 301.2 Performed By: #### L 100.0500, L500.4050, L501.6710, L101.9900 #### [facility] [address] [place], [address] Platelets (Bld) [#/Vol] 201 10*3/uL Normal 150-450 [facility] Comment on above: Order Comment: 301.2 Performed By: #### L 100.0500, L500.4050, L501.6710, L101.9900 #### [facility] [address] [place], [address] RBC (Bld) [#/Vol] 4.30 10*6/uL Low 4.6-6.2 [facility] Comment on above: Order Comment: 301.2 Performed By: #### L 100.0500, L500.4050, L501.6710, L101.9900 #### [facility] [address] [place], [address] RDW SD 54.9 fl High 35.1-43.9 [facility] Comment on above: Order Comment: 301.2 Performed By: #### L 100.0500, L500.4050, L501.6710, L101.9900 #### [facility] [address] [place], [address] WBC (Bld) [#/Vol] 5.5 10*3/uL Normal 4.4-11.0 [facility] Comment on above: Order Comment: 301.2 Performed By: #### L 100.0500, L500.4050, L501.6710, L101.9900 #### [facility] [address] [place], [address] Comprehensive Metabolic Prof ilon 05-15-2025 Albumin [Mass/Vol] 3.4 g/dL Normal 3.4-4.8 [facility] Comment on above: Order Comment: 301.2 Performed By: #### L 100.0500, L500.4050, L501.6710, L101.9900 #### [facility] [address] [place], [address] Albumin/Globulin [Mass ratio] 0.9 {ratio} Normal 0.9-2.4 [facility] Comment on above: Order Comment: 301.2 Performed By: #### L 100.0500, L500.4050, L501.6710, L101.9900 #### [facility] [address] [place], [address] ALK PHOS 133 U/L High 40-129 [facility] Comment on above: Order Comment: 301.2 Performed By: #### L 100.0500, L500.4050, L501.6710, L101.9900 #### [facility] [address] [place], [address] ALT [Catalytic activity/Vol] 20 U/L Normal <=46 [facility] Comment on above: Order Comment: 301.2 Performed By: #### L 100.0500, L500.4050, L501.6710, L101.9900 #### [facility] [address] [place], [address] AST [Catalytic activity/Vol] 28 U/L Normal <=37 [facility] Comment on above: Order Comment: 301.2 Performed By: #### L 100.0500, L500.4050, L501.6710, L101.9900 #### [facility] [address] [place], [address] Bilirubin [Mass/Vol] 0.43 mg/dL Normal 0.00-1.[address] [facility] Comment on above: Order Comment: 301.2 Performed By: #### L 100.0500, L500.4050, L501.6710, L101.9900 #### [facility] [address] [place], [address] BUN/CRE 17.5 RATIO Normal 10-20 [facility] Comment on above: Order Comment: 301.2 Performed By: #### L 100.0500, L500.4050, L501.6710, L101.9900 #### [facility] [address] [place], [address] Calcium [Mass/Vol] 8.9 mg/dL Normal 7.6-11.0 [facility] Comment on above: Order Comment: 301.2 Performed By: #### L 100.0500, L500.4050, L501.6710, L101.9900 #### [facility] [address] [place], [address] Chloride [Moles/Vol] 106 mmol/L Normal 98-[address] [facility] Comment on above: Order Comment: 301.2 Performed By: #### L 100.0500, L500.4050, L501.6710, L101.9900 #### [facility] [address] [place], [address] CO2 [Moles/Vol] 21.6 mmol/L Normal 21.0-32.0 [facility] Comment on above: Order Comment: 301.2 Performed By: #### L 100.0500, L500.4050, L501.6710, L101.9900 #### [facility] [address] [place], [address] Creatinine [Mass/Vol] 0.52 mg/dL Low 0.70-1.20 [facility] Comment on above: Order Comment: 301.2 Performed By: #### L 100.0500, L500.4050, L501.6710, L101.9900 #### [facility] [address] [place], [address] GAP 12 Normal 5-15 [facility] Comment on above: Order Comment: 301.2 Performed By: #### L 100.0500, L500.4050, L501.6710, L101.9900 #### [facility] [address] [place], [address] GFR/1.73 sq M.predicted among non-blacks MDRD (S/P/Bld) [Vol rate/Area] 113 mL/min/{1.73_m2} Normal >60 [facility] Comment on above: Order Comment: 301.2 Result Comment: mL/m in/1.73m2 CKD-EPI Creatinine Equation (2020) Performed By: #### L 100.0500, L500.4050, L501.6710, L101.9900 #### [facility] [address] [place], [address] Globulin (S) [Mass/Vol] 3.6 g/dL Normal 2.2-4.2 [facility] Comment on above: Order Comment: 301.2 Performed By: #### L 100.0500, L500.4050, L501.6710, L101.9900 #### [facility] [address] [place], [address] Glucose [Mass/Vol] 76 mg/dL Normal 70-99 [facility] Comment on above: Order Comment: 301.2 Performed By: #### L 100.0500, L500.4050, L501.6710, L101.9900 #### [facility] [address] [place], [address] Potassium [Moles/Vol] 3.6 mmol/L Normal 3.3-5.1 [facility] Comment on above: Order Comment: 301.2 Performed By: #### L 100.0500, L500.4050, L501.6710, L101.9900 #### [facility] [address] [place], [address] Sodium [Moles/Vol] 139 mmol/L Normal 133-145 [facility] Comment on above: Order Comment: 301.2 Performed By: #### L 100.0500, L500.4050, L501.6710, L101.9900 #### [facility] [address] [place], [address] T PROT 7.0 g/dL Normal 5.9-8.4 [facility] Comment on above: Order Comment: 301.2 Performed By: #### L 100.0500, L500.4050, L501.6710, L101.9900 #### [facility] [address] [place], [address] Urea nitrogen [Mass/Vol] 9 mg/dL Normal 4-19 [facility] Comment on above: Order Comment: 301.2 Performed By: #### L 100.0500, L500.4050, L501.6710, L101.9900 #### [facility] [address] [place], [address] Vancomycin, Trough Levelon 0 - VANCO, TROUGH 17.6 ug/mL High 5.0-15.0 [facility] Comment on above: Order Comment: 301.2 Result [...] (Ventilator/Healtcare Associated) -Sepsis PLEASE CONTACT PHARMACY SERVICES (#[id number]) FOR INTERPRETATION OF RESULTS. Performed By: #### L 100.0500, L500.4050, L501.6710, L101.9900 #### [facility] [address] [place], [place], [address] 36on 05-12-[address] Alvarez, Please see labs received today. Patients sed rate is 64. Down from 78 on 04/21/25. C-reactive protein is 32.80. Please let us know if there is any changes to orders. Thank you. Normal [facility] Vancomycin, Trough Levelon 0 05-11-2025 VANCO, TROUGH 16.8 ug/mL High 5.0-15.0 [facility] Comment on above: Order Comment: 301.2 Result [...] (Ventilator/Healtcare Associated) -Sepsis PLEASE CONTACT PHARMACY SERVICES (#[id number]) FOR INTERPRETATION OF RESULTS. Performed By: #### L 100.0500, L500.4050, L501.6710, L101.9900 #### [facility] [address] [place], [place], [address] 36on 05-10-2025 36 Received a call from Clement stoner at [facility]. She stated that she wanted to clarify how often labs are needed on patient. She stated that all labs except vanc trough were drawn yesterday. She will fax those results. The vanc trough will be drawn tomorrow and will will be faxed to office. Normal [facility] CBC-Complete Blood Cnt No Di ffon 05-09-2025 Erythrocyte distribution width (RBC) [Ratio] 15.9 % High 11.6-14.6 [facility] Comment on above: Order Comment: 301.2 Performed By: #### L 100.0500, L500.4050, L501.6710, L101.9900 #### [facility] [address] [place], [address] Hematocrit (Bld) [Volume fraction] 36.0 % Low 40-54 [facility] Comment on above: Order Comment: 301.2 Performed By: #### L 100.0500, L500.4050, L501.6710, L101.9900 #### [facility] [address] [place], [address] Hemoglobin (Bld) [Mass/Vol] 11.5 g/dL Low 13.0-16.5 [facility] Comment on above: Order Comment: 301.2 Performed By: #### L 100.0500, L500.4050, L501.6710, L101.9900 #### [facility] [address] [place], [address] MCH (RBC) [Entitic mass] 29.1 pg Normal 27.0-32.0 [facility] Comment on above: Order Comment: 301.2 Performed By: #### L 100.0500, L500.4050, L501.6710, L101.9900 #### [facility] [address] [place], [address] MCHC (RBC) [Mass/Vol] 31.9 g/dL Low 32-36 [facility] Comment on above: Order Comment: 301.2 Performed By: #### L 100.0500, L500.4050, L501.6710, L101.9900 #### [facility] [address] [place], [address] MCV (RBC) [Entitic vol] 91.1 fL Normal 80-94 [facility] Comment on above: Order Comment: 301.2 Performed By: #### L 100.0500, L500.4050, L501.6710, L101.9900 #### [facility] [address] [place], [address] Platelet mean volume (Bld) [Entitic vol] 10.3 fL Normal 6.2-12.0 [facility] Comment on above: Order Comment: 301.2 Performed By: #### L 100.0500, L500.4050, L501.6710, L101.9900 #### [facility] [address] [place], [address] Platelets (Bld) [#/Vol] 285 10*3/uL Normal 150-450 [facility] Comment on above: Order Comment: 301.2 Performed By: #### L 100.0500, L500.4050, L501.6710, L101.9900 #### [facility] [address] [place], [address] RBC (Bld) [#/Vol] 3.95 10*6/uL Low 4.6-6.2 [facility] Comment on above: Order Comment: 301.2 Performed By: #### L 100.0500, L500.4050, L501.6710, L101.9900 #### [facility] [address] [place], [address] RDW SD 53.3 fl High 35.1-43.9 [facility] Comment on above: Order Comment: 301.2 Performed By: #### L 100.0500, L500.4050, L501.6710, L101.9900 #### [facility] [address] [place], [address] WBC (Bld) [#/Vol] 5.7 10*3/uL Normal 4.4-11.0 [facility] Comment on above: Order Comment: 301.2 Performed By: #### L 100.0500, L500.4050, L501.6710, L101.9900 #### [facility] [address] [place], [address] CRPon 05-09-2025 C-REACTIVE PROT 32.80 mg/L High 0.0-3.0 [facility] Comment on above: Order Comment: 301.2 Performed By: #### L 100.0500, L500.4050, L501.6710, L101.9900 #### [facility] [address] [place], [address] Comprehensive Metabolic Prof ilon 05-09-2025 Albumin [Mass/Vol] 3.1 g/dL Low 3.4-4.8 [facility] Comment on above: Order Comment: 301.2 Performed By: #### L 100.0500, L500.4050, L501.6710, L101.9900 #### [facility] [address] [place] [place], [address] Albumin/Globulin [Mass ratio] 0.8 {ratio} Low 0.9-2.4 [facility] Comment on above: Order Comment: 301.2 Performed By: #### L 100.0500, L500.4050, L501.6710, L101.9900 #### [facility] [address] [place], [address] ALK PHOS 117 U/L Normal 40-129 [facility] Comment on above: Order Comment: 301.2 Performed By: #### L 100.0500, L500.4050, L501.6710, L101.9900 #### [facility] [address] [place], [address] ALT [Catalytic activity/Vol] 9 U/L Normal <=46 [facility] Comment on above: Order Comment: 301.2 Performed By: #### L 100.0500, L500.4050, L501.6710, L101.9900 #### [facility] [address] [place], [address] AST [Catalytic activity/Vol] 15 U/L Normal <=37 [facility] Comment on above: Order Comment: 301.2 Performed By: #### L 100.0500, L500.4050, L501.6710, L101.9900 #### [facility] [address] [place], [address] Bilirubin [Mass/Vol] 0.28 mg/dL Normal 0.00-1.[address] [facility] Comment on above: Order Comment: 301.2 Performed By: #### L 100.0500, L500.4050, L501.6710, L101.9900 #### [facility] [address] [place], [address] BUN/CRE 12.7 RATIO Normal 10-20 [facility] Comment on above: Order Comment: 301.2 Performed By: #### L 100.0500, L500.4050, L501.6710, L101.9900 #### [facility] [address] [place], [address] Calcium [Mass/Vol] 8.8 mg/dL Normal 7.6-11.0 [facility] Comment on above: Order Comment: 301.2 Performed By: #### L 100.0500, L500.4050, L501.6710, L101.9900 #### [facility] [address] [place], [address] Chloride [Moles/Vol] 106 mmol/L Normal 98-[address] [facility] Comment on above: Order Comment: 301.2 Performed By: #### L 100.0500, L500.4050, L501.6710, L101.9900 #### [facility] [address] [place], [address] CO2 [Moles/Vol] 19.7 mmol/L Low 21.0-32.0 [facility] Comment on above: Order Comment: 301.2 Performed By: #### L 100.0500, L500.4050, L501.6710, L101.9900 #### [facility] [address] [place], [address] Creatinine [Mass/Vol] 0.49 mg/dL Low 0.70-1.20 [facility] Comment on above: Order Comment: 301.2 Performed By: #### L 100.0500, L500.4050, L501.6710, L101.9900 #### [facility] [address] [place], [address] GAP 12 Normal 5-15 [facility] Comment on above: Order Comment: 301.2 Performed By: #### L 100.0500, L500.4050, L501.6710, L101.9900 #### [facility] [address] [place], [address] GFR/1.73 sq M.predicted among non-blacks MDRD (S/P/Bld) [Vol rate/Area] 116 mL/min/{1.73_m2} Normal >60 [facility] Comment on above: Order Comment: 301.2 Result Comment: mL/m in/1.73m2 CKD-EPI Creatinine Equation (2020) Performed By: #### L 100.0500, L500.4050, L501.6710, L101.9900 #### [facility] [address] [place], [address] Globulin (S) [Mass/Vol] 4.0 g/dL Normal 2.2-4.2 [facility] Comment on above: Order Comment: 301.2 Performed By: #### L 100.0500, L500.4050, L501.6710, L101.9900 #### [facility] [address] [place], [address] Glucose [Mass/Vol] 145 mg/dL High 70-99 [facility] Comment on above: Order Comment: 301.2 Performed By: #### L 100.0500, L500.4050, L501.6710, L101.9900 #### [facility] [address] [place], [address] Potassium [Moles/Vol] 3.5 mmol/L Normal 3.3-5.1 [facility] Comment on above: Order Comment: 301.2 Performed By: #### L 100.0500, L500.4050, L501.6710, L101.9900 #### [facility] [address] [place], [address] Sodium [Moles/Vol] 138 mmol/L Normal 133-145 [facility] Comment on above: Order Comment: 301.2 Performed By: #### L 100.0500, L500.4050, L501.6710, L101.9900 #### [facility] [address] [place], [address] T PROT 7.1 g/dL Normal 5.9-8.4 [facility] Comment on above: Order Comment: 301.2 Performed By: #### L 100.0500, L500.4050, L501.6710, L101.9900 #### [facility] [address] [place], [address] Urea nitrogen [Mass/Vol] 6 mg/dL Normal 4-19 [facility] Comment on above: Order Comment: 301.2 Performed By: #### L 100.0500, L500.4050, L501.6710, L101.9900 #### [facility] [address] [place], [address] Erythrocyte Sed Rateon 05-09 SED RATE 64 mm/hr High 0-20 [facility] Comment on above: Order Comment: 301.2 Performed By: #### L 100.0500, L500.4050, L501.6710, L101.9900 #### [facility] [address] [place], [address] CBC-Complete Blood Cnt No Di ffon 05-08-2025 HCT Normal 40-54 [facility] Comment on above: Order Comment: 301.2 Result Comment: UTO X1 Performed By: #### L 100.0500, L500.4050, L501.6710, L101.9900 #### [facility] [address] [place], [address] HGB Normal 13.0-16.5 [facility] Comment on above: Order Comment: 301.2 Result Comment: UTO X1 Performed By: #### L 100.0500, L500.4050, L501.6710, L101.9900 #### [facility] [address] [place], [address] MCH Normal 27.0-32.0 [facility] Comment on above: Order Comment: 301.2 Result Comment: UTO X1 Performed By: #### L 100.0500, L500.4050, L501.6710, L101.9900 #### [facility] [address] [place], [address] MCHC Normal 32-36 [facility] Comment on above: Order Comment: 301.2 Result Comment: UTO X1 Performed By: #### L 100.0500, L500.4050, L501.6710, L101.9900 #### [facility] [address] [place], [address] MCV Normal 80-94 [facility] Comment on above: Order Comment: 301.2 Result Comment: UTO X1 Performed By: #### L 100.0500, L500.4050, L501.6710, L101.9900 #### [facility] [address] [place], [address] PLT Normal 150-450 [facility] Comment on above: Order Comment: 301.2 Result Comment: UTO X1 Performed By: #### L 100.0500, L500.4050, L501.6710, L101.9900 #### [facility] [address] [place], [address] RBC Normal 4.6-6.2 [facility] Comment on above: Order Comment: 301.2 Result Comment: UTO X1 Performed By: #### L 100.0500, L500.4050, L501.6710, L101.9900 #### [facility] [address] [place], [address] RDW CV Normal 11.6-14.6 [facility] Comment on above: Order Comment: 301.2 Result Comment: UTO X1 Performed By: #### L 100.0500, L500.4050, L501.6710, L101.9900 #### [facility] [address] [place], [address] RDW SD Normal 35.1-43.9 [facility] Comment on above: Order Comment: 301.2 Result Comment: UTO X1 Performed By: #### L 100.0500, L500.4050, L501.6710, L101.9900 #### [facility] [address] [place], [address] WBC Normal 4.4-11.0 [facility] Comment on above: Order Comment: 301.2 Result Comment: UTO X1 Performed By: #### L 100.0500, L500.4050, L501.6710, L101.9900 #### [facility] [address] [place], [address] Comprehensive Metabolic Prof ilon 05-08-2025 ALB Normal 3.4-4.8 [facility] Comment on above: Order Comment: 301.2 Result Comment: UTO X1 Performed By: #### L 100.0500, L500.4050, L501.6710, L101.9900 #### [facility] [address] [place], [address] ALK PHOS Normal 40-129 [facility] Comment on above: Order Comment: 301.2 Result Comment: UTO X1 Performed By: #### L 100.0500, L500.4050, L501.6710, L101.9900 #### [facility] [address] [place], [address] ALT Normal <=46 [facility] Comment on above: Order Comment: 301.2 Result Comment: UTO X1 Performed By: #### L 100.0500, L500.4050, L501.6710, L101.9900 #### [facility] [address] [place], [address] AST Normal <=37 [facility] Comment on above: Order Comment: 301.2 Result Comment: UTO X1 Performed By: #### L 100.0500, L500.4050, L501.6710, L101.9900 #### [facility] [address] [place], [address] BUN Normal 4-19 [facility] Comment on above: Order Comment: 301.2 Result Comment: UTO X1 Performed By: #### L 100.0500, L500.4050, L501.6710, L101.9900 #### [facility] [address] [place], [address] BUN/CRE Normal 10-20 [facility] Comment on above: Order Comment: 301.2 Result Comment: UTO X1 Performed By: #### L 100.0500, L500.4050, L501.6710, L101.9900 #### [facility] [address] [place], [address] Calcium Normal 7.6-11.0 [facility] Comment on above: Order Comment: 301.2 Result Comment: UTO X1 Performed By: #### L 100.0500, L500.4050, L501.6710, L101.9900 #### [facility] [address] [place], [address] CL Normal 98-108 [facility] Comment on above: Order Comment: 301.2 Result Comment: UTO X1 Performed By: #### L 100.0500, L500.4050, L501.6710, L101.9900 #### [facility] [address] [place], [address] CO2 Normal 21.0-32.0 [facility] Comment on above: Order Comment: 301.2 Result Comment: UTO X1 Performed By: #### L 100.0500, L500.4050, L501.6710, L101.9900 #### [facility] [address] [place], [address] CREAT,SERUM Normal 0.70-1.20 [facility] Comment on above: Order Comment: 301.2 Result Comment: UTO X1 Performed By: #### L 100.0500, L500.4050, L501.6710, L101.9900 #### [facility] [address] [place], [address] eGFR Normal >60 [facility] Comment on above: Order Comment: 301.2 Result Comment: UTO X1 Performed By: #### L 100.0500, L500.4050, L501.6710, L101.9900 #### [facility] [address] [place], [address] GAP Normal 5-15 [facility] Comment on above: Order Comment: 301.2 Result Comment: UTO X1 Performed By: #### L 100.0500, L500.4050, L501.6710, L101.9900 #### [facility] [address] [place], [address] GLU Normal 70-99 [facility] Comment on above: Order Comment: 301.2 Result Comment: UTO X1 Performed By: #### L 100.0500, L500.4050, L501.6710, L101.9900 #### [facility] [address] [place], [address] Potassium Normal 3.3-5.1 [facility] Comment on above: Order Comment: 301.2 Result Comment: UTO X1 Performed By: #### L 100.0500, L500.4050, L501.6710, L101.9900 #### [facility] [address] [place], [address] T BILI Normal 0.00-1.30 [facility] Comment on above: Order Comment: 301.2 Result Comment: UTO X1 Performed By: #### L 100.0500, L500.4050, L501.6710, L101.9900 #### [facility] [address] [place], [address] T PROT Normal 5.9-8.4 [facility] Comment on above: Order Comment: 301.2 Result Comment: UTO X1 Performed By: #### L 100.0500, L500.4050, L501.6710, L101.9900 #### [facility] [address] [place], [address] Comprehensive Metabolic Profil Normal 133-145 [facility] Comment on above: Order Comment: 301.2 Result Comment: UTO X1 Performed By: #### L 100.0500, L500.4050, L501.6710, L101.9900 #### [facility] [address] [place], [address] Erythrocyte Sed Rateon 05-08 SED RATE Normal 0-20 [facility] Comment on above: Order Comment: 301.2 Result Comment: UTO X1 Performed By: #### L 100.0500, L500.4050, L501.6710, L101.9900 #### [facility] [address] [place], [place], [id number] 36on 05-03-2025 36 Message received fro larry Alvarez to keep the same dose for now. Called Nikki back at [facility] and released message via voicemail. Encouraged her to call office back if have any more questions or concerns. Normal [facility] 36 Received call from Nikki nurse at [facility]. They repeated the vanc trough again today due to it being elevated on the . The level today is 22. Facility calling to see if physician wanted to continue the 1gm every 12 hours or want to make another adjustment before his dose at 9am today. Sent secure chat to Dr. Alvarez. Awaiting message back. Normal [facility] Vancomycin, Trough Levelon 0 05-03-2025 VANCO, TROUGH 22.0 ug/mL High 5.0-15.0 [facility] Comment on above: Order Comment: 301.2 Result [...] (Ventilator/Healtcare Associated) -Sepsis PLEASE CONTACT PHARMACY SERVICES (#[id number]) FOR INTERPRETATION OF RESULTS. Performed By: #### L 100.0500, L500.4050, L501.6710, L101.9900 #### [facility] [address] [place], [address] 36on 05-01-2025 36 Received lab report for patient. Labs drawn today and nursing facility. Vanc trough is 26.1. Called and spoke to nurse Ambrosio at facility. Wanted to make sure this [...] Ambrosio. Verbalized understanding of new order. Normal [facility] 36 Pt dc to [facility] Delvalle [phone]. Called facility and spoke to nurse Clement to verify IV meds, dose, frequency, EOT, weekly labs, and follow up appt with Dr. Alvarez on 06/02 at 11am. She was able to read back orders. Also faxed appt reminder to facility and received confirmation fax (scanned under media). Normal [facility] CBC-Complete Blood Cnt No Di ffon 05-01-2025 Erythrocyte distribution width (RBC) [Ratio] 15.9 % High 11.6-14.6 [facility] Comment on above: Performed By: #### L 100.0500, L500.4050, L501.6710, L101.9900 #### [facility] [address] [place], [address] Hematocrit (Bld) [Volume fraction] 33.5 % Low 40-54 [facility] Comment on above: Performed By: #### L 100.0500, L500.4050, L501.6710, L101.9900 #### [facility] [address] [place], [address] Hemoglobin (Bld) [Mass/Vol] 10.9 g/dL Low 13.0-16.5 [facility] Comment on above: Performed By: #### L 100.0500, L500.4050, L501.6710, L101.9900 #### [facility] [address] [place], [address] MCH (RBC) [Entitic mass] 29.4 pg Normal 27.0-32.0 [facility] Comment on above: Performed By: #### L 100.0500, L500.4050, L501.6710, L101.9900 #### [facility] [address] [place], [address] MCHC (RBC) [Mass/Vol] 32.5 g/dL Normal 32-36 [facility] Comment on above: Performed By: #### L 100.0500, L500.4050, L501.6710, L101.9900 #### [facility] [address] [place], [address] MCV (RBC) [Entitic vol] 90.3 fL Normal 80-94 [facility] Comment on above: Performed By: #### L 100.0500, L500.4050, L501.6710, L101.9900 #### [facility] [address] [place], [address] Platelet mean volume (Bld) [Entitic vol] 9.7 fL Normal 6.2-12.0 [facility] Comment on above: Performed By: #### L 100.0500, L500.4050, L501.6710, L101.9900 #### [facility] [address] [place], [address] Platelets (Bld) [#/Vol] 340 10*3/uL Normal 150-450 [facility] Comment on above: Performed By: #### L 100.0500, L500.4050, L501.6710, L101.9900 #### [facility] [address] [place], [address] RBC (Bld) [#/Vol] 3.71 10*6/uL Low 4.6-6.2 [facility] Comment on above: Performed By: #### L 100.0500, L500.4050, L501.6710, L101.9900 #### [facility] [address] [place], [address] RDW SD 51.4 fl High 35.1-43.9 [facility] Comment on above: Performed By: #### L 100.0500, L500.4050, L501.6710, L101.9900 #### [facility] [address] [place], [address] WBC (Bld) [#/Vol] 7.4 10*3/uL Normal 4.4-11.0 [facility] Comment on above: Performed By: #### L 100.0500, L500.4050, L501.6710, L101.9900 #### [facility] [address] [place], [address] [facility] 05-01-2025 Albumin [Mass/Vol] 3.0 g/dL Low 3.4-4.8 [facility] Comment on above: Performed By: #### L 100.0500, L500.4050, L501.6710, L101.9900 #### [facility] [address] [place], [address] Albumin/Globulin [Mass ratio] 0.8 {ratio} Low 0.9-2.4 [facility] Comment on above: Performed By: #### L 100.0500, L500.4050, L501.6710, L101.9900 #### [facility] [address] [place], [address] ALK PHOS 115 U/L Normal 40-129 [facility] Comment on above: Performed By: #### L 100.0500, L500.4050, L501.6710, L101.9900 #### [facility] [address] [place], [address] ALT [Catalytic activity/Vol] 7 U/L Normal <=46 [facility] Comment on above: Performed By: #### L 100.0500, L500.4050, L501.6710, L101.9900 #### [facility] [address] [place], [address] AST [Catalytic activity/Vol] 16 U/L Normal <=37 [facility] Comment on above: Performed By: #### L 100.0500, L500.4050, L501.6710, L101.9900 #### [facility] [address] [place], [address] Bilirubin [Mass/Vol] 0.26 mg/dL Normal 0.00-1.[address] [facility] Comment on above: Performed By: #### L 100.0500, L500.4050, L501.6710, L101.9900 #### [facility] [address] [place], [address] BUN/CRE 19.4 RATIO Normal 10-20 [facility] Comment on above: Performed By: #### L 100.0500, L500.4050, L501.6710, L101.9900 #### [facility] [address] [place], [address] Calcium [Mass/Vol] 8.5 mg/dL Normal 7.6-11.0 [facility] Comment on above: Performed By: #### L 100.0500, L500.4050, L501.6710, L101.9900 #### [facility] [address] [place], [address] Chloride [Moles/Vol] 106 mmol/L Normal 98-[address] [facility] Comment on above: Performed By: #### L 100.0500, L500.4050, L501.6710, L101.9900 #### [facility] [address] [place], [address] CO2 [Moles/Vol] 20.2 mmol/L Low 21.0-32.0 [facility] Comment on above: Performed By: #### L 100.0500, L500.4050, L501.6710, L101.9900 #### [facility] [address] [place], [address] Creatinine [Mass/Vol] 0.51 mg/dL Low 0.70-1.20 [facility] Comment on above: Performed By: #### L 100.0500, L500.4050, L501.6710, L101.9900 #### [facility] [address] [place], [address] GAP 12 Normal 5-15 [facility] Comment on above: Performed By: #### L 100.0500, L500.4050, L501.6710, L101.9900 #### [facility] [address] [place], [address] GFR/1.73 sq M.predicted among non-blacks MDRD (S/P/Bld) [Vol rate/Area] 114 mL/min/{1.73_m2} Normal >60 [facility] Comment on above: Result Comment: mL/m in/1.73m2 CKD-EPI Creatinine Equation (2020) Performed By: #### L 100.0500, L500.4050, L501.6710, L101.9900 #### [facility] [address] [place], [address] Globulin (S) [Mass/Vol] 3.8 g/dL Normal 2.2-4.2 [facility] Comment on above: Performed By: #### L 100.0500, L500.4050, L501.6710, L101.9900 #### [facility] [address] [place], [address] Glucose [Mass/Vol] 126 mg/dL High 70-99 [facility] Comment on above: Performed By: #### L 100.0500, L500.4050, L501.6710, L101.9900 #### [facility] [address] [place], [address] Potassium [Moles/Vol] 3.7 mmol/L Normal 3.3-5.1 [facility] Comment on above: Performed By: #### L 100.0500, L500.4050, L501.6710, L101.9900 #### [facility] [address] [place], [address] Sodium [Moles/Vol] 138 mmol/L Normal 133-145 [facility] Comment on above: Performed By: #### L 100.0500, L500.4050, L501.6710, L101.9900 #### [facility] [address] [place], [address] T PROT 6.8 g/dL Normal 5.9-8.4 [facility] Comment on above: Performed By: #### L 100.0500, L500.4050, L501.6710, L101.9900 #### [facility] [address] [place], [address] Urea nitrogen [Mass/Vol] 10 mg/dL Normal 4-19 [facility] Comment on above: Performed By: #### L 100.0500, L500.4050, L501.6710, L101.9900 #### [facility] [address] [place], [address] Vancomycin, Trough Levelon 0 - VANCO, TROUGH 26.1 ug/mL High 5.0-15.0 [facility] Comment on above: Order Comment: 301.2 Result [...] (Ventilator/Healtcare Associated) -Sepsis PLEASE CONTACT PHARMACY SERVICES (#[id number]) FOR INTERPRETATION OF RESULTS. Performed By: #### L 100.0500, L500.4050, L501.6710, L101.9900 #### [facility] [address] [place], [address] 30on 04-28-2025 30 Proteus is sensitive to unasyn. OPAT for unasyn and vancomycin completed and scanned into media with stop date of 06/06. Follow up with Dr. Alvarez. D/w [facility]. Plans for discharge to SNF. Jo-Ann Ortiz MD [facility] [phone] 04-28-2025 [id number] Retirement/SNF - Return [facility] [address] [phone] Patient/Family Choice [facility] [phone] Next Site of Care Admission Date: 04/21/2025 09:56 PM Patient Name: ANMOL REYNOLDS Location: [place] [id number] [facility] [id number] A Date of : 1960 ------- Placement Information ------- Referral Type:Retirement/SNF - Return Referral ID:[id number] [facility] Address 1:[facility] Address 2: City:[place] Selection Factors:Patient/Famil y Choice State:[place] Normal [facility] [phone] Confirmed pickup mingo e of 5:30pm on 04/28/25 by transport [employer] Carlos Obrien at phone number [phone]. Location of facility drop off is [facility]. Facility notified via [employer], [facility] notified on secure chat. [facility] [phone] Transport requested in [employer] in will call to [facility] per [facility]. [facility] Bacteria identified Aer cx N om (Unsp spec)on 04-28-2025 Gram Stain Result Many Polymorphonuclear leukocytes per low power field Abnormal [facility] Gram Stain Result Positive Abnormal [facility] Interpretation and review of laboratory results Abnormal [facility] Laboratory - Chemistry and C hemistry - challengeon 04-28-2025 Glucose [Mass/Vol] 212 mg/dL High 70 - 100 mg/dL [facility] Glucose [Mass/Vol] 183 mg/dL High 70 - 100 mg/dL [facility] Glucose [Mass/Vol] 152 mg/dL High 70 - 100 mg/dL [facility] Laboratory - Microbiology an d Antimicrobial susceptibilityon 04-28-2025 Bacteria identified Aer cx Nom (Unsp spec) Rare skin gosia present [facility] Bacteria identified Aer cx Nom (Unsp spec) Moderate Enterococcus raffinosus Abnormal [facility] Bacteria identified Aer cx Nom (Unsp spec) Rare Proteus mirabilis Abnormal [facility] No Panel Informationon 04-28 Interpretation and review of laboratory results Abnormal [facility] Performed by: [address] [address] CLIA ID: [id number] [facility] Interpretation and review of laboratory results Abnormal [facility] Performed by: [facility], [address] [place] [address] CLIA ID: [id number] [facility] Interpretation and review of laboratory results Abnormal [facility] Performed by: [facility], [address] [place] [address] CLIA ID: [id number] [facility] Nursing Noteon 04-28-2025 Nursing Note [facility] PICC line clean dry and intact. Aide got pt ready and gathered all belongings. Waiting on transport to arrive. Normal [facility] 30on 04-27-2025 [address] Alvarez- s/p L ischial wound debridement with osteomyelitis. Additional organisms are being reported on OR cx. E raffinosus, Proteus, MRSA, Clostridium ramosum, enteric gosia, and skin gosia. Await Proteus sensitivities prior to completion of OPAT. Will provide final recommendations tomorrow. D/w [facility]. Jo-Ann Ortiz MD Normal [facility] BASIC METABOLIC PANELon 04-05 Anion gap [Moles/Vol] 3 mmol/L Normal 3-13 [facility] Comment on above: Performed By: #### L AB15 ####Obstetrician/Gynecologist: BIANCA NICHOLS ([id number])[facility] ([facility])[address] [place] [address] Calcium [Mass/Vol] 8.6 mg/dL Low 8.8-10.0 [facility] Comment on above: Performed By: #### L AB15 ####Obstetrician/Gynecologist: BIANCA NICHOLS ([phone])[facility] ([facility] [place] [address] Chloride [Moles/Vol] 104 mmol/L Normal 98-107 [facility] Comment on above: Performed By: #### L AB15 ####Obstetrician/Gynecologist: BIANCA NICHOLS ([id number])[facility] ([facility] [place] [address] CO2 [Moles/Vol] 29 mmol/L Normal 23-31 [facility] Comment on above: Performed By: #### L AB15 ####Obstetrician/Gynecologist: BIANCA NICHOLS ([phone])[facility])[address] [place] [address] Creatinine [Mass/Vol] 0.64 mg/dL Low 0.72-1.25 [facility] Comment on above: Performed By: #### L AB15 ####Obstetrician/Gynecologist: BIANCA NICHOLS ([phone])[facility] ([facility])[address] [place] [address] GLOMERULAR FILTRATION RATE ML/MIN/1.73 SQ M.PREDICTED >90.0 Normal >60.0 [facility] Comment on above: Result Comment: Calc ulation based on the Chronic Kidney Disease Epidemiology Collaboration (CKD-EPI) equation refit without adjustment for race Performed By: #### L AB15 ####Obstetrician/Gynecologist: BIANCA NICHOLS ([id number])[facility] ([facility])[address] [place] [address] Glucose [Mass/Vol] 96 mg/dL Normal 82-115 [facility] Comment on above: Performed By: #### L AB15 ####Obstetrician/Gynecologist: BIANCA NICHOLS ([phone])[facility])[address] [place] [address] Potassium [Moles/Vol] 4.0 mmol/L Normal 3.5-5.1 [facility] Comment on above: Result Comment: [facility] potassium values may be up to 0.5 mmol/L lower than serum values. Performed By: #### L AB15 ####Obstetrician/Gynecologist: BIANCA NICHOLS ([id number])[facility] ([facility])[address] [place] [address] Sodium [Moles/Vol] 136 mmol/L Normal 136-145 [facility] Comment on above: Performed By: #### L AB15 ####Obstetrician/Gynecologist: BIANCA NICHOLS ([phone])[facility] ([facility])[address] [place] [address] Urea nitrogen [Mass/Vol] 21 mg/dL Normal 9-23 [facility] Comment on above: Performed By: #### L AB15 ####Obstetrician/Gynecologist: BIANCA NICHOLS ([id number])[facility] ([facility])[address] [place] [address] Bacteria identified Aer cx N om (Unsp spec)on 04-27-2025 Gram Stain Result Few Polymorphonuclea r leukocytes per low power field [facility] Gram Stain Result No organisms seen [facility] Interpretation and review of laboratory results Abnormal [facility] Bacteria identified Anaer cx Nom (Unsp spec)Ordered By: Vijaya Mariscal on 04-27-2025 Interpretation and review of laboratory results Abnormal [facility] Bacteria identified Cx Nom ( Bld)on 04-27-2025 Interpretation and review of laboratory results Normal [facility] Blood Collection Site: Right Forearm [facility] Blood Collection Site: Left PICC Purple Lumen [facility] Basic metabolic 1998 panelon 04-27-2025 Anion gap [Moles/Vol] 3 mmol/L 3 - 13 mmol/L [facility] Calcium [Mass/Vol] 8.6 mg/dL Low 8.8 - 10. 0 mg/dL [facility] Chloride [Moles/Vol] 104 mmol/L 98 - 10 7 mmol/L [facility] CO2 [Moles/Vol] 29 mmol/L 23 - 31 mmol/L [facility] Creatinine [Mass/Vol] 0.64 mg/dL Low 0.72 - 1.25 mg/dL [facility] GFR/1.73 sq M.predicted (S/P/Bld) [Vol rate/Area] - PINF [facility] Comment on above: Calculation based on the Chronic Kidney Disease Epidemiology Collaboration (CKD-EPI) equation refit without adjustment for race Glucose [Mass/Vol] 96 mg/dL 82 - 115 mg/dL [facility] Interpretation and review of laboratory results Abnormal [facility] Potassium [Moles/Vol] 4 mmol/L 3.5 - 5.1 mmol/L [facility] Comment on above: Plasma potassium leonie ues may be up to 0.5 mmol/L lower than serum values. Sodium [Moles/Vol] 136 mmol/L 136 - 145 mmol/L [facility] Urea nitrogen [Mass/Vol] 21 mg/dL 9 - 23 mg/dL [facility] CBC W Auto Differential pane l (Bld)on 04-27-2025 Basophils (Bld) [#/Vol] 0.1 10*3/uL 0.0 - 0.2 10*3/uL [facility] Basophils/100 WBC (Bld) 0.8 % 0.0 - 2.0 % [facility] Eosinophils (Bld) [#/Vol] 0.4 10*3/uL 0.0 - 0.5 10*3/uL [facility] Eosinophils/100 WBC (Bld) 5.3 % 0.0 - 6.0 % [facility] Erythrocyte distribution width (RBC) [Ratio] 14.9 % 11.5 - 15.0 % [facility] Hematocrit (Bld) [Volume fraction] 34 % Low 40.0 - 52.0 % [facility] Hemoglobin (Bld) [Mass/Vol] 10.9 g/dL Low 13.0 - 18.0 g/dL [facility] Immature granulocytes (Bld) [#/Vol] 0 10*3/uL NINF - 0.1 10*3/uL [facility] Immature granulocytes/100 WBC (Bld) 0.5 % 0.0 - 2.0 % [facility] Interpretation and review of laboratory results Abnormal [facility] Lymphocytes (Bld) [#/Vol] 2.9 10*3/uL 1.0 - 4.3 10*3/uL [facility] Lymphocytes/100 WBC (Bld) 36.4 % 15.0 - 45.0 % [facility] MCH (RBC) [Entitic mass] 28.8 pg 26. 0 - 34.0 pg [facility] MCHC (RBC) [Mass/Vol] 32.1 % 30.5 - 36.0 % [facility] MCV (RBC) [Entitic vol] 89.9 fL 77.0 - 99.0 fL [facility] Monocytes (Bld) [#/Vol] 0.7 10*3/uL 0.0 - 0.9 10*3/uL [facility] Monocytes/100 WBC (Bld) 8.2 % 5.0 - 13.0 % [facility] Neutrophils (Bld) [#/Vol] 3.9 10*3/uL 1.8 - 7.5 10*3/uL [facility] Neutrophils/100 WBC (Bld) 48.8 % 38.0 - 82.0 % [facility] Nucleated RBC/100 WBC (Bld) [Ratio] 0 % [facility] Platelet mean volume (Bld) [Entitic vol] 9.5 fL 9.0 - 12.7 fL [facility] Platelets (Bld) [#/Vol] 363 10*3/uL 140 - 440 10*3/uL [facility] RBC (Bld) [#/Vol] 3.78 10*6/uL Low 4.40 - 5.9 0 10*6/uL [facility] WBC (Bld) [#/Vol] 8 10*3/uL 3.6 - 10.7 10*3/uL [facility] CBC WITH AUTO DIFFERENTIALon 04-27-2025 Basophils (Bld) [#/Vol] 0.1 10*3/uL Normal 0.0-0.2 [facility] Comment on above: Performed By: #### L [id number] ####Obstetrician/Gynecologist: BIANCA [id number])[address] Basophils/100 WBC (Bld) 0.8 % Normal 0.0-2.0 [facility] Comment on above: Performed By: #### L [id number] ####Obstetrician/Gynecologist: BIANCA [id number])[facility] ([facility])[address] [place] [address] Eosinophils (Bld) [#/Vol] 0.4 10*3/uL Normal 0.0-0.5 [facility] Comment on above: Performed By: #### L [id number] ####Obstetrician/Gynecologist: BIANCA [id number])[facility])[address] [place] [address] Eosinophils/100 WBC (Bld) 5.3 % Normal 0.0-6.0 [facility] Comment on above: Performed By: #### L [id number] ####Obstetrician/Gynecologist: BIANCA NICHOLS ([id number])[facility])[address] [place] [address] Erythrocyte distribution width (RBC) [Ratio] 14.9 % Normal 11.5-15.0 [facility] Comment on above: Performed By: #### L [id number] ####Obstetrician/Gynecologist: BIANCA NICHOLS ([id number])[facility])[address] [place] [address] Hematocrit (Bld) [Volume fraction] 34.0 % Low 40.0-52.0 [facility] Comment on above: Performed By: #### L [id number] ####Obstetrician/Gynecologist: BIANCA NICHOLS ([id number])[facility])[address] [place] [address] Hemoglobin (Bld) [Mass/Vol] 10.9 g/dL Low 13.0-18.0 [facility] Comment on above: Performed By: #### L [id number] ####Obstetrician/Gynecologist: BIANCA NICHOLS ([id number])[facility])[address] [place] [address] IMMATURE GRANS % 0.5 % Normal 0.0-2.0 [facility] Comment on above: Performed By: #### L [id number] ####Obstetrician/Gynecologist: BIANCA NICHOLS ([id number])[facility])[address] [place] [address] IMMATURE GRANS ABSOLUTE 0.0 10*3/uL Normal <0.1 [facility] Comment on above: Performed By: #### L [id number] ####Obstetrician/Gynecologist: BIANCA NICHOLS ([id number])[facility])[address] [place] [address] Lymphocytes (Bld) [#/Vol] 2.9 10*3/uL Normal 1.0-4.3 [facility] Comment on above: Performed By: #### L [id number] ####Obstetrician/Gynecologist: BIANCA NICHOLS ([id number])[facility])[address] [place] [address] Lymphocytes/100 WBC (Bld) 36.4 % Normal 15.0-45.0 [facility] Comment on above: Performed By: #### L [id number] ####Obstetrician/Gynecologist: BIANCA NICHOLS ([phone])[facility])[address] [place] [address] MCH (RBC) [Entitic mass] 28.8 pg Normal 26.0-34.0 [facility] Comment on above: Performed By: #### L [id number] ####Obstetrician/Gynecologist: BIANCA NICHOLS ([id number])[facility])[address] [place] [address] MCHC 32.1 % Normal 30.5-36.0 [facility] Comment on above: Performed By: #### L [id number] ####Obstetrician/Gynecologist: BIANCA NICHOLS ([phone])[facility])[address] [place] [address] MCV (RBC) [Entitic vol] 89.9 fL Normal 77.0-99.0 [facility] Comment on above: Performed By: #### L [id number] ####Obstetrician/Gynecologist: BIANCA NICHOLS ([id number])[facility])[address] [place] [address] Monocytes (Bld) [#/Vol] 0.7 10*3/uL Normal 0.0-0.9 [facility] Comment on above: Performed By: #### L [id number] ####Obstetrician/Gynecologist: BIANCA NICHOLS ([id number])[facility])[address] [place] [address] Monocytes/100 WBC (Bld) 8.2 % Normal 5.0-13.0 [facility] Comment on above: Performed By: #### L [id number] ####Obstetrician/Gynecologist: BIANCA NICHOLS ([id number])[facility] ([facility])[address] [place] [address] NEUTROPHILS ABSOLUTE 3.9 10*3/uL Normal 1.8-7.5 [facility] Comment on above: Performed By: #### L [id number] ####Obstetrician/Gynecologist: BIANCA NICHOLS ([id number])[facility] ([facility])[address] [place] [address] Neutrophils/100 WBC (Bld) 48.8 % Normal 38.0-82.0 [facility] Comment on above: Performed By: #### L [id number] ####Obstetrician/Gynecologist: BIANCA NICHOLS ([id number])[facility])[address] [place] [address] NRBC 0.0 /100 WBCs Normal 0.0-2.0 [facility] Comment on above: Performed By: #### L [id number] ####Obstetrician/Gynecologist: BIANCA NICHOLS ([id number])[facility] ([facility])[address] [place] [address] Platelet mean volume (Bld) [Entitic vol] 9.5 fL Normal 9.0-12.7 [facility] Comment on above: Performed By: #### L [id number] ####Obstetrician/Gynecologist: BIANCA NICHOLS ([id number])[facility])[address] [place] [address] Platelets (Bld) [#/Vol] 363 10*3/uL Normal 140-440 [facility] Comment on above: Performed By: #### L [id number] ####Obstetrician/Gynecologist: BIANCA NICHOLS ([id number])[facility] ([facility])[address] [place] [address] RBC (Bld) [#/Vol] 3.78 10*6/uL Low 4.40-5.90 [facility] Comment on above: Performed By: #### L [id number] ####Obstetrician/Gynecologist: BIANCA NICHOLS ([id number])[facility] ([facility])[address] [place] [address] WBC (Bld) [#/Vol] 8.0 10*3/uL Normal 3.6-10.7 [facility] Comment on above: Performed By: #### L [id number] ####Obstetrician/Gynecologist: BIANCA NICHOLS ([phone])[facility] ([facility])[address] [place] [address] Laboratory - Chemistry and C hemistry - challengeon 04-27-2025 Glucose [Mass/Vol] 146 mg/dL High 70 - 100 mg/dL [facility] Glucose [Mass/Vol] 228 mg/dL High 70 - 100 mg/dL [facility] Glucose [Mass/Vol] 265 mg/dL High 70 - 100 mg/dL [facility] Glucose [Mass/Vol] 137 mg/dL High 70 - 100 mg/dL [facility] Laboratory - Microbiology an d Antimicrobial susceptibilityOrdered By: Vijaya Mariscal on 04-27-2025 Bacteria identified Anaer cx Nom (Unsp spec) Moderate Anaerobic Gram-negative bacilli, not B. fragilis Abnormal [facility] - Microbiology an d Antimicrobial susceptibilityon 04-27-2025 Bacteria identified Aer cx Nom (Unsp spec) Rare Enterococcus raffinosus Abnormal [facility] Bacteria identified Cx Nom (Bld) No growth at 5 days [facility] No Panel Informationon 04-27 Interpretation and review of laboratory results Abnormal [facility] Performed by: [place] [address] CLIA ID: [id number] [facility] Interpretation and review of laboratory results Abnormal [facility] Performed by: [place] [address] CLIA ID: [id number] [facility] Interpretation and review of laboratory results Abnormal [facility] Performed by: [place] [address] CLIA ID: [id number] [facility] Interpretation and review of laboratory results Abnormal [facility] Performed by: [place] [address] CLIA ID: [id number] [facility] Nursing Noteon 04-27-2025 Nursing Note Patient dressings changed as per orders. Patient tolerated well. Left PICC dressing changed patient tolerated well Normal [facility] BASIC METABOLIC PANELon 07-2 Anion gap [Moles/Vol] 6 mmol/L Normal 3-13 [facility] Comment on above: Performed By: #### L [id number] ####Obstetrician/Gynecologist: BIANCA NICHOLS ([id number])[facility] ([facility] [place] [address] Calcium [Mass/Vol] 8.5 mg/dL Low 8.8-10.0 [facility] Comment on above: Performed By: #### L AB15 ####Obstetrician/Gynecologist: BIANCA NICHOLS ([phone])[facility] ([facility] [place] [address] Chloride [Moles/Vol] 103 mmol/L Normal 98-107 [facility] Comment on above: Performed By: #### L [id number] ####Obstetrician/Gynecologist: BIANCA NICHOLS ([phone])[facility] ([facility])[address] [place] [address] CO2 [Moles/Vol] 27 mmol/L Normal 23-31 [facility] Comment on above: Performed By: #### L AB15 ####Obstetrician/Gynecologist: BIANCA NICHOLS ([phone])[facility] ([facility] [place] [address] Creatinine [Mass/Vol] 0.62 mg/dL Low 0.72-1.25 [facility] Comment on above: Performed By: #### L AB15 ####Obstetrician/Gynecologist: BIANCA NICHOLS ([phone])[facility] ([facility] [place] [address] GLOMERULAR FILTRATION RATE ML/MIN/1.73 SQ M.PREDICTED >90.0 Normal >60.0 [facility] Comment on above: Result Comment: Calc ulation based on the Chronic Kidney Disease Epidemiology Collaboration (CKD-EPI) equation refit without adjustment for race Performed By: #### L [id number] ####Obstetrician/Gynecologist: BIANCA NICHOLS ([id number])[facility] ([facility])[address] [place] [address] Glucose [Mass/Vol] 155 mg/dL High 82-115 [facility] Comment on above: Performed By: #### L [id number] ####Obstetrician/Gynecologist: BIANCA NICHOLS ([id number])[facility] ([facility])[address] [place] [address] Potassium [Moles/Vol] 4.0 mmol/L Normal 3.5-5.1 [facility] Comment on above: Result Comment: [facility] potassium values may be up to 0.5 mmol/L lower than serum values. Performed By: #### L [id number] ####Obstetrician/Gynecologist: BIANCA NICHOLS ([phone])[facility] ([facility])[address] [place] [address] Sodium [Moles/Vol] 136 mmol/L Normal 136-145 [facility] Comment on above: Performed By: #### L [id number] ####Obstetrician/Gynecologist: BIANCA NICHOLS ([phone])[facility] ([facility])[address] [place] [address] Urea nitrogen [Mass/Vol] 19 mg/dL Normal 9-23 [facility] Comment on above: Performed By: #### L [id number] ####Obstetrician/Gynecologist: BIANCA NICHOLS ([phone])[facility])[address] [place] [address] Basic metabolic 1998 panelon 04-26-2025 Anion gap [Moles/Vol] 6 mmol/L 3 - 13 mmol/L [facility] Calcium [Mass/Vol] 8.5 mg/dL Low 8.8 - 10. 0 mg/dL [facility] Chloride [Moles/Vol] 103 mmol/L 98 - 10 7 mmol/L [facility] CO2 [Moles/Vol] 27 mmol/L 23 - 31 mmol/L [facility] Creatinine [Mass/Vol] 0.62 mg/dL Low 0.72 - 1.25 mg/dL [facility] GFR/1.73 sq M.predicted (S/P/Bld) [Vol rate/Area] - PINF [facility] Comment on above: Calculation based on the Chronic Kidney Disease Epidemiology Collaboration (CKD-EPI) equation refit without adjustment for race Glucose [Mass/Vol] 155 mg/dL High 82 - 115 mg/dL [facility] Interpretation and review of laboratory results Abnormal [facility] Potassium [Moles/Vol] 4 mmol/L 3.5 - 5.1 mmol/L [facility] Comment on above: Plasma potassium leonie ues may be up to 0.5 mmol/L lower than serum values. Sodium [Moles/Vol] 136 mmol/L 136 - 145 mmol/L [facility] Urea nitrogen [Mass/Vol] 19 mg/dL 9 - 23 mg/dL [facility] CBC (HEMOGRAM)on 04-26-2025 Erythrocyte distribution width (RBC) [Ratio] 14.8 % Normal 11.5-15.0 [facility] Comment on above: Performed By: #### L [id number] ####Obstetrician/Gynecologist: BIANCA NICHOLS ([phone])[address] Hematocrit (Bld) [Volume fraction] 33.8 % Low 40.0-52.0 [facility] Comment on above: Performed By: #### L [id number] ####Obstetrician/Gynecologist: BIANCA NICHOLS ([phone])[address] Hemoglobin (Bld) [Mass/Vol] 11.0 g/dL Low 13.0-18.0 [facility] Comment on above: Performed By: #### L [id number] ####Obstetrician/Gynecologist: BIANCA NICHOLS ([phone])[facility])[address] [place] [address] MCH (RBC) [Entitic mass] 29.3 pg Normal 26.0-34.0 [facility] Comment on above: Performed By: #### L [id number] ####Obstetrician/Gynecologist: BIANCA NICHOLS ([phone])[address] MCHC 32.5 % Normal 30.5-36.0 [facility] Comment on above: Performed By: #### L [id number] ####Obstetrician/Gynecologist: BIANCA NICHOLS ([id number])[facility] ([facility])[address] [place] [address] MCV (RBC) [Entitic vol] 89.9 fL Normal 77.0-99.0 [facility] Comment on above: Performed By: #### L [id number] ####Obstetrician/Gynecologist: BIANCA NICHOLS ([id number])[facility])[address] [place] [address] Platelet mean volume (Bld) [Entitic vol] 9.5 fL Normal 9.0-12.7 [facility] Comment on above: Performed By: #### L [id number] ####Obstetrician/Gynecologist: BIANCA NICHOLS ([phone])[facility])[address] [place] [address] Platelets (Bld) [#/Vol] 386 10*3/uL Normal 140-440 [facility] Comment on above: Performed By: #### L [id number] ####Obstetrician/Gynecologist: BIANCA NICHOLS ([phone])[facility])[address] [place] [address] RBC (Bld) [#/Vol] 3.76 10*6/uL Low 4.40-5.90 [facility] Comment on above: Performed By: #### L [id number] ####Obstetrician/Gynecologist: BIANCA NICHOLS ([phone])[facility])[address] [place] [address] WBC (Bld) [#/Vol] 7.3 10*3/uL Normal 3.6-10.7 [facility] Comment on above: Performed By: #### L [id number] ####Obstetrician/Gynecologist: BIANCA NICHOLS ([id number])[facility])[address] [place] [address] CBC panel Auto (Bld)on 04-26 Erythrocyte distribution width (RBC) [Ratio] 14.8 % 11.5 - 15.0 % [facility] Hematocrit (Bld) [Volume fraction] 33.8 % Low 40.0 - 52.0 % [facility] Hemoglobin (Bld) [Mass/Vol] 11 g/dL Low 13.0 - 18.0 g/dL [facility] Interpretation and review of laboratory results Abnormal [facility] MCH (RBC) [Entitic mass] 29.3 pg 26. 0 - 34.0 pg [facility] MCHC (RBC) [Mass/Vol] 32.5 % 30.5 - 36.0 % [facility] MCV (RBC) [Entitic vol] 89.9 fL 77.0 - 99.0 fL [facility] Platelet mean volume (Bld) [Entitic vol] 9.5 fL 9.0 - 12.7 fL [facility] Platelets (Bld) [#/Vol] 386 10*3/uL 140 - 440 10*3/uL [facility] RBC (Bld) [#/Vol] 3.76 10*6/uL Low 4.40 - 5.9 0 10*6/uL [facility] WBC (Bld) [#/Vol] 7.3 10*3/uL 3.6 - 10.7 10*3/uL [facility] IRON AND TIBCon 04-26-2025 IRON BINDING CAPACITY 136 ug/dL Low 250-450 [facility] Comment on above: Performed By: #### L [id number] ####Obstetrician/Gynecologist: BIANCA NICHOLS ([id number])[facility])[address] [place] [address] IRON SATURATION 44.1 % Normal 20.0-50.0 [facility] Comment on above: Performed By: #### L [id number] ####Obstetrician/Gynecologist: BIANCA NICHOLS ([id number])[facility] ([facility])[address] [place] [address] [place] IRON, TOTAL 60 ug/dL Low 65-175 [facility] Comment on above: Performed By: #### L [id number] ####Obstetrician/Gynecologist: BIANCA NICHOLS ([id number])[facility])[address] [place] [address] [place] Iron and Iron binding capaci ty panelon 04-26-2025 Interpretation and review of laboratory results Abnormal [facility] Iron [Mass/Vol] 60 ug/dL Low 65 - 175 ug/dL [facility] Iron binding capacity [Mass/Vol] 136 ug/dL Low 250 - 450 ug/dL [facility] Iron saturation [Mass fraction] 44.1 % 20.0 - 50.0 % [facility] Laboratory - Chemistry and C hemistry - challengeon 04-26-2025 Glucose [Mass/Vol] 244 mg/dL High 70 - 100 mg/dL [facility] Glucose [Mass/Vol] 199 mg/dL High 70 - 100 mg/dL [facility] Glucose [Mass/Vol] 219 mg/dL High 70 - 100 mg/dL [facility] Glucose [Mass/Vol] 185 mg/dL High 70 - 100 mg/dL [facility] No Panel Informationon 04-26 Interpretation and review of laboratory results Abnormal [facility] Performed by: [address] [address] CLIA ID: [id number] [facility] Interpretation and review of laboratory results Abnormal [facility] Performed by: [address] [address] CLIA ID: [id number] [facility] Interpretation and review of laboratory results Abnormal [facility] Performed by: [address] [address] CLIA ID: [id number] [facility] Interpretation and review of laboratory results Abnormal [facility] Performed by: [address] [address] CLIA ID: [id number] [facility] BASIC METABOLIC PANELon 04-05 Anion gap [Moles/Vol] 7 mmol/L Normal 3-13 [facility] Comment on above: Performed By: #### L [id number] ####Obstetrician/Gynecologist: BIANCA NICHOLS ([id number])[facility] ([facility] [place] [address] [place] Calcium [Mass/Vol] 8.2 mg/dL Low 8.8-10.0 [facility] Comment on above: Performed By: #### L [id number] ####Obstetrician/Gynecologist: BIANCA NICHOLS ([phone])[facility] ([facility])[address] [place] [address] [place] Chloride [Moles/Vol] 101 mmol/L Normal 98-107 [facility] Comment on above: Performed By: #### L AB15 ####Obstetrician/Gynecologist: BIANCA NICHOLS ([phone])[facility])[address] [place] [address] CO2 [Moles/Vol] 26 mmol/L Normal 23-31 [facility] Comment on above: Performed By: #### L AB15 ####Obstetrician/Gynecologist: BIANCA NICHOLS ([phone])[facility])[address] [place] [address] Creatinine [Mass/Vol] 0.73 mg/dL Normal 0.72-1.25 [facility] Comment on above: Performed By: #### L AB15 ####Obstetrician/Gynecologist: BIANCA NICHOLS ([phone])[facility])[address] [place] [address] GLOMERULAR FILTRATION RATE ML/MIN/1.73 SQ M.PREDICTED >90.0 Normal >60.0 [facility] Comment on above: Result Comment: Calc ulation based on the Chronic Kidney Disease Epidemiology Collaboration (CKD-EPI) equation refit without adjustment for race Performed By: #### L [id number] ####Obstetrician/Gynecologist: BIANCA NICHOLS ([phone])[facility])[address] [place] [address] Glucose [Mass/Vol] 213 mg/dL High 82-115 [facility] Comment on above: Performed By: #### L AB15 ####Obstetrician/Gynecologist: BIANCA NICHOLS ([phone])[facility])[address] [place] [address] [place] Potassium [Moles/Vol] 4.3 mmol/L Normal 3.5-5.1 [facility] Comment on above: Result Comment: [facility] potassium values may be up to 0.5 mmol/L lower than serum values. Performed By: #### L AB15 ####Obstetrician/Gynecologist: BIANCA NICHOLS ([id number])[facility])[address] [place] [address] [place] Sodium [Moles/Vol] 134 mmol/L Low 136-145 [facility] Comment on above: Performed By: #### L [id number] ####Obstetrician/Gynecologist: BIANCA NICHOLS ([id number])[facility] ([facility])[address] [place] [address] Urea nitrogen [Mass/Vol] 14 mg/dL Normal 9-23 [facility] Comment on above: Performed By: #### L [id number] ####Obstetrician/Gynecologist: BIANCA NICHOLS ([id number])[facility] ([facility])[address] [place] [address] Bacteria identified Aer cx N om (Unsp spec)Ordered By: Joy York on 04-25-2025 Gram Stain Result Many Polymorphonuclear leukocytes per low power field Abnormal [facility] Gram Stain Result Negative Abnormal [facility] Gram Stain Result Positive Abnormal [facility] Interpretation and review of laboratory results Abnormal [facility] PBP2A Positive [facility] Basic metabolic 1998 panelon 04-25-2025 Anion gap [Moles/Vol] 7 mmol/L 3 - 13 mmol/L [facility] Calcium [Mass/Vol] 8.2 mg/dL Low 8.8 - 10. 0 mg/dL [facility] Chloride [Moles/Vol] 101 mmol/L 98 - 10 7 mmol/L [facility] CO2 [Moles/Vol] 26 mmol/L 23 - 31 mmol/L [facility] Creatinine [Mass/Vol] 0.73 mg/dL 0.72 - 1.25 mg/dL [facility] GFR/1.73 sq M.predicted (S/P/Bld) [Vol rate/Area] - PINF [facility] Comment on above: Calculation based on the Chronic Kidney Disease Epidemiology Collaboration (CKD-EPI) equation refit without adjustment for race Glucose [Mass/Vol] 213 mg/dL High 82 - 115 mg/dL [facility] Interpretation and review of laboratory results Abnormal [facility] Potassium [Moles/Vol] 4.3 mmol/L 3.5 - 5.1 mmol/L [facility] Comment on above: Plasma potassium leonie ues may be up to 0.5 mmol/L lower than serum values. Sodium [Moles/Vol] 134 mmol/L Low 136 - 145 mmol/L [facility] Urea nitrogen [Mass/Vol] 14 mg/dL 9 - 23 mg/dL [facility] CBC W Auto Differential pane l (Bld)on 04-25-2025 Basophils (Bld) [#/Vol] 0 10*3/uL 0.0 - 0.2 10*3/uL [facility] Basophils/100 WBC (Bld) 0.4 % 0.0 - 2.0 % [facility] Eosinophils (Bld) [#/Vol] 0.1 10*3/uL 0.0 - 0.5 10*3/uL [facility] Eosinophils/100 WBC (Bld) 0.8 % 0.0 - 6.0 % [facility] Erythrocyte distribution width (RBC) [Ratio] 14.8 % 11.5 - 15.0 % [facility] Hematocrit (Bld) [Volume fraction] 32.6 % Low 40.0 - 52.0 % [facility] Hemoglobin (Bld) [Mass/Vol] 10.4 g/dL Low 13.0 - 18.0 g/dL [facility] Immature granulocytes (Bld) [#/Vol] 0 10*3/uL NINF - 0.1 10*3/uL [facility] Immature granulocytes/100 WBC (Bld) 0.4 % 0.0 - 2.0 % [facility] Interpretation and review of laboratory results Abnormal [facility] Lymphocytes (Bld) [#/Vol] 2 10*3/uL 1.0 - 4.3 10*3/uL [facility] Lymphocytes/100 WBC (Bld) 20.7 % 15.0 - 45.0 % [facility] MCH (RBC) [Entitic mass] 28.7 pg 26. 0 - 34.0 pg [facility] MCHC (RBC) [Mass/Vol] 31.9 % 30.5 - 36.0 % [facility] MCV (RBC) [Entitic vol] 90.1 fL 77.0 - 99.0 fL [facility] Monocytes (Bld) [#/Vol] 0.9 10*3/uL 0.0 - 0.9 10*3/uL [facility] Monocytes/100 WBC (Bld) 9.3 % 5.0 - 13.0 % [facility] Neutrophils (Bld) [#/Vol] 6.5 10*3/uL 1.8 - 7.5 10*3/uL [facility] Neutrophils/100 WBC (Bld) 68.4 % 38.0 - 82.0 % [facility] Nucleated RBC/100 WBC (Bld) [Ratio] 0 % [facility] Platelet mean volume (Bld) [Entitic vol] 9.9 fL 9.0 - 12.7 fL [facility] Platelets (Bld) [#/Vol] 421 10*3/uL 140 - 440 10*3/uL [facility] RBC (Bld) [#/Vol] 3.62 10*6/uL Low 4.40 - 5.9 0 10*6/uL [facility] WBC (Bld) [#/Vol] 9.5 10*3/uL 3.6 - 10.7 10*3/uL [facility] CBC WITH AUTO DIFFERENTIALon 04-25-2025 Basophils (Bld) [#/Vol] 0.0 10*3/uL Normal 0.0-0.2 [facility] Comment on above: Performed By: #### L [id number] ####Obstetrician/Gynecologist: BIANCA NICHOLS ([phone])[facility])[address] [place] [address] Basophils/100 WBC (Bld) 0.4 % Normal 0.0-2.0 [facility] Comment on above: Performed By: #### L [id number] ####Obstetrician/Gynecologist: BIANCA NICHOLS ([phone])[facility])[address] [place] [address] Eosinophils (Bld) [#/Vol] 0.1 10*3/uL Normal 0.0-0.5 [facility] Comment on above: Performed By: #### L [id number] ####Obstetrician/Gynecologist: BIANCA NICHOLS ([id number])[facility])[address] [place] [address] [place] Eosinophils/100 WBC (Bld) 0.8 % Normal 0.0-6.0 [facility] Comment on above: Performed By: #### L [id number] ####Obstetrician/Gynecologist: BIANCA [id number])[facility])[address] [place] [address] Erythrocyte distribution width (RBC) [Ratio] 14.8 % Normal 11.5-15.0 [facility] Comment on above: Performed By: #### L [id number] ####Obstetrician/Gynecologist: BIANCA NICHOLS ([id number])[facility])[address] [place] [address] Hematocrit (Bld) [Volume fraction] 32.6 % Low 40.0-52.0 [facility] Comment on above: Performed By: #### L [id number] ####Obstetrician/Gynecologist: BIANCA NICHOLS ([phone])[facility])[address] [place] [address] Hemoglobin (Bld) [Mass/Vol] 10.4 g/dL Low 13.0-18.0 [facility] Comment on above: Performed By: #### L [id number] ####Obstetrician/Gynecologist: BIANCA NICHOLS ([phone])[facility])[address] [place] [address] IMMATURE GRANS % 0.4 % Normal 0.0-2.0 [facility] Comment on above: Performed By: #### L [id number] ####Obstetrician/Gynecologist: BIANCA NICHOLS ([phone])[facility])[address] [place] [address] IMMATURE GRANS ABSOLUTE 0.0 10*3/uL Normal <0.1 [facility] Comment on above: Performed By: #### L [id number] ####Obstetrician/Gynecologist: BIANCA NICHOLS ([id number])[facility])[address] [place] [address] Lymphocytes (Bld) [#/Vol] 2.0 10*3/uL Normal 1.0-4.3 [facility] Comment on above: Performed By: #### L [id number] ####Obstetrician/Gynecologist: BIANCA NICHOLS ([phone])[facility])[address] [place] [address] Lymphocytes/100 WBC (Bld) 20.7 % Normal 15.0-45.0 [facility] Comment on above: Performed By: #### L [id number] ####Obstetrician/Gynecologist: BIANCA NICHOLS ([phone])[facility])[address] [place] [address] MCH (RBC) [Entitic mass] 28.7 pg Normal 26.0-34.0 [facility] Comment on above: Performed By: #### L [id number] ####Obstetrician/Gynecologist: BIANCA NICHOLS ([phone])[facility])[address] [place] [address] MCHC 31.9 % Normal 30.5-36.0 [facility] Comment on above: Performed By: #### L [id number] ####Obstetrician/Gynecologist: BIANCA NICHOLS ([phone])[facility])[address] [place] [address] MCV (RBC) [Entitic vol] 90.1 fL Normal 77.0-99.0 [facility] Comment on above: Performed By: #### L [id number] ####Obstetrician/Gynecologist: BIANCA NICHOLS ([phone])[facility])[address] [place] [address] Monocytes (Bld) [#/Vol] 0.9 10*3/uL Normal 0.0-0.9 [facility] Comment on above: Performed By: #### L [id number] ####Obstetrician/Gynecologist: BIANCA NICHOLS ([id number])[facility])[address] [place] [address] Monocytes/100 WBC (Bld) 9.3 % Normal 5.0-13.0 [facility] Comment on above: Performed By: #### L [id number] ####Obstetrician/Gynecologist: BIANCA NICHOLS ([phone])[facility])[address] [place] [address] NEUTROPHILS ABSOLUTE 6.5 10*3/uL Normal 1.8-7.5 [facility] Comment on above: Performed By: #### L [id number] ####Obstetrician/Gynecologist: BIANCA NICHOLS ([phone])[facility] ([facility])[address] [place] [address] Neutrophils/100 WBC (Bld) 68.4 % Normal 38.0-82.0 [facility] Comment on above: Performed By: #### L [id number] ####Obstetrician/Gynecologist: BIANCA NICHOLS ([phone])[facility] ([facility])[address] [place] [address] NRBC 0.0 /100 WBCs Normal 0.0-2.0 [facility] Comment on above: Performed By: #### L [id number] ####Obstetrician/Gynecologist: BIANCA NICHOLS ([phone])[facility] ([facility])[address] [place] [address] Platelet mean volume (Bld) [Entitic vol] 9.9 fL Normal 9.0-12.7 [facility] Comment on above: Performed By: #### L [id number] ####Obstetrician/Gynecologist: BIANCA NICHOLS ([phone])[facility] ([facility])[address] [place] [address] Platelets (Bld) [#/Vol] 421 10*3/uL Normal 140-440 [facility] Comment on above: Performed By: #### L [id number] ####Obstetrician/Gynecologist: BIANCA NICHOLS ([id number])[facility] ([facility])[address] [place] [address] RBC (Bld) [#/Vol] 3.62 10*6/uL Low 4.40-5.90 [facility] Comment on above: Performed By: #### L [id number] ####Obstetrician/Gynecologist: BIANCA NICHOLS ([id number])[facility] ([facility])[address] [place] [address] [place] WBC (Bld) [#/Vol] 9.5 10*3/uL Normal 3.6-10.7 [facility] Comment on above: Performed By: #### L [id number] ####Obstetrician/Gynecologist: BIANCA NICHOLS ([phone])[facility] [place] [address] Consulton 04-25-2025 Consult [facility] Wound Care CONSULT Note Anmol Reynolds AGE: 64 y.o. GENDER: male : 1960 Subjective: HISTORY of PRESENT ILLNESS HPI Anmol Reynolds is a 64 y.o. male who presents for a wound consult. HPI: Anmol is a 64 y.o. male with past medical history below who presents with chief complaint listed above. Patient sent to [facility] staff to leave the patient's wounds on his sacrum were worsening and becoming infected. Patient is a paraplegic for the last 4 years after surgical complication with Dr. Ashley at [facility]. ER workup was significant for [...] effort, no respiratory distress, no cyanosis Sacrum: [id number]. Wound bed with pink tissue noted. Small serosanguinous drainage. Periwound fragile. 04/25/25 Left ischium: [id number]. Wound bed with eschar, slough and red [...] to follow Recommend to follow up at [facility] Outpatient wound care center after [...] and a (more content not included)... Normal [facility] Laboratory - Chemistry and C hemistry - challengeon 04-25-2025 Glucose [Mass/Vol] 220 mg/dL High 70 - 100 mg/dL [facility] Glucose [Mass/Vol] 226 mg/dL High 70 - 100 mg/dL [facility] Glucose [Mass/Vol] 281 mg/dL High 70 - 100 mg/dL [facility] Glucose [Mass/Vol] 187 mg/dL High 70 - 100 mg/dL [facility] Laboratory - Microbiology an d Antimicrobial susceptibilityOrdered By: Joy York on 04-25-2025 Bacteria identified Aer cx Nom (Unsp spec) Moderate enteric gosia present [facility] Bacteria identified Aer cx Nom (Unsp spec) Moderate Staphylococcus aureus Abnormal [facility] Comment on above: Methicillin-resistan t Staphylococcus aureus (MRSA) No Panel Informationon 04-25 Interpretation and review of laboratory results Abnormal [facility] Performed by: [address] [address] CLIA ID: [id number] [facility] Interpretation and review of laboratory results Abnormal [facility] Performed by: [address] [address] CLIA ID: [id number] [facility] Interpretation and review of laboratory results Abnormal [facility] Performed by: [address] [address] CLIA ID: [id number] [facility] Interpretation and review of laboratory results Abnormal [facility] Performed by: [address] [address] CLIA ID: [id number] [facility] No Panel InformationOrdered By: Genaro Kelly on 04-25-2025 Case Report Surgical Pathology Case: [id number] Authorizing Provider: Kaela Durand MD Collected: 04/24/2025 0806 Ordering Location: [facility] Received: 04/24/2025 1209 Pathologist: Genaro Kelly MD PhD Specimen: LEFT ISCHIAL BONE [facility] [employer] Work Phone: Clinical Information l5ljsHXuSZNovZBdHAM wM BhcffZpINWrrQCqN6Bwqm iiIKizBZ6wDO4yxSlkrAX xcUOkZAQoEqUnf2oww929 fLQeh0naUZAHUSekXSGML Xh0dPgeG55wa8O5MvejH5 xyZWQwXGdyZWVuMFxibHV eGBe8JXAaxTKdjeMcRdGz PEJckGSttTX5IQGqFC0lq bypEFjdXQxxROLafrK4SA FudIFjG9GpERZiWT5jbbi uZDA8ROmuCGQsRGX7RiNe FDYdf2Dkmwv5YeRwmRCsk 7BwO6bzgtNkqMhqrpFlfo 9uZVxjbGJyZHJsXGJyZHJ zb46sQVMtPoMlizLwKeQz bk0ppxFfW2yioaItBqdan qQxij3iQYzojFGnueUuzN WwS1jvvJDYqGX9eXJwA4g 6M2bhcIz5GQJoKZGcwKr5 NTgyMFxwYXJkXGludGJsX CBsFNnaBQBeKxLeH5EnHY 09eKMfVAWpbHLbDC6lkSD dmEntyWx5kJKsYC00ePJg IHNpdGUgKEhDQykgLSBNO TEyDAvjA4eHCU9sVZ9DME 8nP9HqsHorvpMyhJhjn9p tsPXgy8FlnNCrgDJbq6nl jOLoGFC5AVUqVRGij40kU TOxRbXjvjbbYjXpbx4ooh NlP8zwbrAwztxyalFdxn6 uZVxjbGJyZHJiXGJyZHJu c82mLARivzLmcJMzwDaks TP2h3fzNXGmO8eniWxZoH S9dOX9AlWvF7RjdGb2CML iHZEjzeQwjA39UuhiIHIk j2R4qdFpvB3pzMT4CP2xZ IDfU2V7V6CbuYGlRWmzf4 3uHVG9WKdcFUFtCSfQHqg fXGDFKSgiBDSxJCeYV7Nb ZXYrC89yJZGanDzxoR92A ehvzy68PGJdpsGlaYMruQ == [employer] Work Phone: Comment v9ercPJtJBQuyMLkHTYh M TsalxPhXRDwiCTdS8Jwwz uhYZxzCN1zXX8vfPduoML suVLvQBRoDrIwv3aqw926 rGWjw0wzLDYPPSsiFNHYD Mn5kGgmS00by9W6IeooC4 8zmQEtBKX8UOAoIGMvfXJ pGJHrOMU6ZMGrdBRyS6xc NGOqUI4omwuhMGgwOBciH EYebXF1JTUsdXTqE5MoDW MsAGquJTRcjsx5ZgAoEg0 vdGVyeTcyMFxwYXJkXHBs YWluXGZzMjAgRHIuIFMuI CCjn40tr30xVRAqwvL3eb MuXHBhcn0= [employer] Work Phone: Disclaimer f7fqwRChAOPrdPXgRcHk M BWyMIEet2umNCDwgDVcIk EwMzNcZnRuYmpcdWMxXGR yFtMyk8hzu237jOPvf2ut QGNnWdW1aVZaINAnX17xX ZHXF387DDSbYZure7dnx0 BlXSSehWDzu5H9GEGMNUo pFRHOLFl0oNjeA69ef5Y4 IwypX2raECCkNXCsT8DnY M9nKUDvKdm3BMG8ZHV5QZ KtRHXiF2MnQG0qZXYlcPY oUJa2q2ohnYtdTAEnXRM9 v9wwAHdvfdJkHV7zay6ua Mt9c6yjrpQnEEWdPRDvwI AROSJfI8CvpBhnAl4ycPi 3vJgsBqsbHKH2Tjh6WX6e sc83fbv3qBmrJJJkasweL mE1HFhuSFVlmlppEJo3NI jvLSQxnEK0WCDudOQiK5O tSPVaVW4xmew0PTR3ZGtw TEByEcY7ZUIpfYHxLBIkc KtnJIhkc806IBX6BdAyYE 6cY8Xhy8P2uR3zgYZiRRN ycKXpJmJdYWAdmo8rtLWx UHhuz2IxIUP8jpU2kVMuu RBrNFLtQB14Mmgjs0XqGj nzLKH3GNHjkvBtv7Ofd4u yUmHtwnXuF0naT7ObSEEz UBXyGPQaNwWcscAvx2Hag 1KujVWfkCe6g5zaOIWdVZ WtwNlvh8eyHPA6LYEsK2O 3zHPvp5xoBPnyGJMbbJI1 ulL2MJHnxPKrR8LtmV0vG TYwZO0vwbe5u0enCCX9KS fxLAZbZdJ9zrY1DYCotGM rGIAbzDngXZhyw008JOC9 UtPvGRDkf3LxA6GxsSdwH 30kcPqoK74fLERbpNvkuM 0gvFnteV0hDxZdKmOlOPm xbFxwbGFpblxmMVxmczE2 CRqtyqjvUGRsZQtsQ3ewD kWlQSPhxYwmOFckw2WzAI SpGNAoYUVbREntA5zwdO9 zfzhhRHhwIJGntXoui4oj ArIikNJ5DN8ffzBbGTFgc IrncaK3mpTviOgfmI7vxE 1ehUwroP6gmRWnzQP7qez sIGluIHNpdHUgaHlicmlk xHhdzAnxtsxrzX6nAAY8n SKcKER1hSRiVKEyDGFyKR JmhY08rn0qiAZokeLhK8A kB3GwwLQhpVgmNnlcgHDh wJXnLd4dyMWuXL8bTMNgp GXzC1YmGT3cFIIehoieGS IgVGhlIHVzZSBvZiBvbmU vb5EayJ9dNNLjJQAdNQ16 czUsycV6gDRyAHXbzuSur GVzdHMgaXMgcmVndWxhdG PcFZPfCQSoQTHsQRz5uUA gd5VjH7fddBAhiyVnD7Me aOHkTSQDNC2qBUour5Otr KYbiHPuz2FyVRRkMCXuhG 9xKBKxDB5fKNBrVIwzFDK vyyKceh5ytxBoPHFjBCPb O1FyqwsinQfrunBrFGUud t8cucCuRVI5VOVdHIMftZ sysAJduGAwRBEguzR7p3C pYSYpf3VsZ3QwgEJbRBCe iPFbKAT1k6LkeQ4jYJwfy VXzLQUfFC7noNYpCQCgBS NsZWFyZWQgYnkgdGhlIFV MYBLuc3BmMT6fJNGzlBak KILgsY8xk5SnDGEhz17vA EZEQSkuIFRoZSBGREEgaG FzIGRldGVybWluZWQgdGh lfUSfrDSsBHBbCUXxGE5c DBPdfkBvrZYui3BfyYBpa nUph0SakvDsWTTzOMO2Xc BccGFyXHBhciBBbGwgaW1 lnZ0ju5FgcV9gPXcgwkHi nNSqWx5xbEIcMW7kYIPna mFmZmluIGVtYmVkZGVkIH Zku8U1CV2tSOShxh0pwsv pbMQwiM4jnRMxtmJoFF5z NG2uP1K4iVJdSSIfocOyn 6ylRYq1pFYeJNIawWXhbX GpSlafMAV5IQVsYWA7ngC lowKjQOVqtAhsrFA7xKPf RFAyMJPvDGCkJY44H2Vqo 3OaH1ipOU61OPEnJQOlOD SywfKvv5qrKMKtj3apSMW usJZlA1UcCOEbpQFgmodu CjVqSTB4PSJwQPX7fVLsT EAtR4PxaCRhjMFrvD43KP 6pbFK5SJ3tHZF5PCllzY0 lGvYAfU41fb4pvEE1v8Vy DO4zQ0WeSMWls0S9jwGpN QIbDN1ukHCcNITiDVZkcA lkYXRlZCBvbiBkZWNhbGN tOxzgYJT1xLDbcOEyApNC AYR8gFDoJULnk3MxQCCxK TJnecSvcjKoIVNmVIV3mW RiNQJhiZPlz54dG1o1KF8 qbJlwHFGwdGHlXBNyr2Ql yFLgpTj8iKEsGlUvCLofS EFgYXkaxFv1kBL7AE7iLX LaH3MkE6xwgZQvNELkZFW hrPErlr1qoIPwhZ== [facility] Work Phone: Gross Description z9rogIYoSSJlkUDfFDLp M BcgwdZzLHZlkRJlW2Fcjc yiGNzgQD4cWC1awQzjpIG epRUdFYPaOoUmn6lvr389 tYTvg1xuUNQOSQsjHPZVJ Pf1oHxrZ74jq8G5RzutF0 0zgMHoUIT6WVKsQTLolLM aPGOxHKM6AEWfzXMoR0ot CRIxHO5pkxoiFEumAEvoK MIqlOJ2VNMnyNYwQ9BmYR GuHYogUITllel5SbAtQp4 vdGVyeTcyMFxwYXJkXHBs JDfgRRYkCrPsSkQcQAo7E AXiwU7sBm7rcDScjT2dcH MnQLwuOBGszCWymWTlr2O oaWFsIGJvbmUiIGlzIGEg lEwqry2pRVTwfA5zeAbeb mLwBvJjy26lNYJaZIDbtF Jgx3AbTWIcWH34LIihSK4 8HQmmGV9aMGMpSnKzSSuh IHNwZWNpbWVuIGlzIGVud BgkNEh1MNJ8Gy3brPAaXC HfnzSpqxFaB6Ffx2Z3xUG dVETTc3WqNlIyVc4vVRMk YWwgaXMgbmVlZGVkIGZvc jC8dBEbx0HiR8huBP8gGB BccGFyfQ== [employer] Work Phone: Pathologist Interpretation Location [facility], [address] [place] [address], [facility] [address], CLIA: [id number]; Joint Commission: [id number]; CAP: [id number] [facility] [employer] Phone: Pathology report final diagnosis Narrative s1ndkPWsQXLkzJMsMZNeE AbofbFwVXQnsMLmQ2Tzxo zfELlbQW2mUQ2miLgtgCH xhAQpKMPqAoPuk1qjr810 iWCcx9axIVXEQYkcARUQH Ze5tBgcH18cc5H1PtwwK4 4mwZAqTQA4JAFtIIJveCH gWNSkULF7FKKosMCdQ7lw QIQwGC7vbwgnIWmbDGoyW JJafGE8JQUphFRtG0NyLD CbDWmhGPWvngv0KjCtJa5 vdGVyeTcyMFxwYXJkXHBs YWluXGZzMjAgTEVGVCBJU 3HFROCGQYVZRdUkBMPOB5 BTWTpccGFyXGVuZGFzaCA yFQ6PKACCVPYcV9ERJiHD WBUBP32xOYcPU1GCFGBGP VZSTPLVLJ4DSPGXMdVMA5 4xC1WbGi5EZIEFPQQPVZW DQflOE2NCOIUVB1VSOARJ G1SCM36DXMmZNKrSEburJ XJ9 [facility] [employer] Work Phone: [facility] [employer] Work Phone: 30on 04-24-2025 30 Problem: Pain [...] and maintained or improved Outcome: Progressing Normal [facility] [id number] 04-24-2025 [id number] [facility] transportation. SW reviewed chart. Pt is a LTC resident of [facility]. CT is responsible for pt transportation for medical appointments. . Normal [facility] BASIC METABOLIC PANELon 07-2 Anion gap [Moles/Vol] 8 mmol/L Normal 3-13 [facility] Comment on above: Performed By: #### L [id number] ####Obstetrician/Gynecologist: BIANCA NICHOLS ([id number])[facility] ([address] Calcium [Mass/Vol] 8.4 mg/dL Low 8.8-10.0 [facility] Comment on above: Performed By: #### L [id number] ####Obstetrician/Gynecologist: BIANCA NICHOLS ([phone])[facility] ([facility])[address] [place] [address] Chloride [Moles/Vol] 101 mmol/L Normal 98-107 [facility] Comment on above: Performed By: #### L [id number] ####Obstetrician/Gynecologist: BIANCA NICHOLS ([phone])[facility])[address] [place] [address] CO2 [Moles/Vol] 27 mmol/L Normal 23-31 [facility] Comment on above: Performed By: #### L [id number] ####Obstetrician/Gynecologist: BIANCA NICHOLS ([id number])[facility] ([facility])[address] [place] [address] Creatinine [Mass/Vol] 0.59 mg/dL Low 0.72-1.25 [facility] Comment on above: Performed By: #### L [id number] ####Obstetrician/Gynecologist: BIANCA NICHOLS ([phone])[facility])[address] [place] [address] GLOMERULAR FILTRATION RATE ML/MIN/1.73 SQ M.PREDICTED >90.0 Normal >60.0 [facility] Comment on above: Result Comment: Calc ulation based on the Chronic Kidney Disease Epidemiology Collaboration (CKD-EPI) equation refit without adjustment for race Performed By: #### L [id number] ####Obstetrician/Gynecologist: BIANCA NICHOLS ([phone])[facility])[address] [place] [address] Glucose [Mass/Vol] 113 mg/dL Normal 82-115 [facility] Comment on above: Performed By: #### L [id number] ####Obstetrician/Gynecologist: BIANCA NICHOLS ([id number])[facility])[address] [place] [address] Potassium [Moles/Vol] 4.0 mmol/L Normal 3.5-5.1 [facility] Comment on above: Result Comment: [facility] potassium values may be up to 0.5 mmol/L lower than serum values. Performed By: #### L [id number] ####Obstetrician/Gynecologist: BIANCA NICHOLS ([phone])[facility])[address] [place] [address] [place] Sodium [Moles/Vol] 136 mmol/L Normal 136-145 [facility] Comment on above: Performed By: #### L [id number] ####Obstetrician/Gynecologist: BIANCA NICHOLS ([phone])[facility])[address] [place] [address] Urea nitrogen [Mass/Vol] 7 mg/dL Low 9-23 [facility] Comment on above: Performed By: #### L [id number] ####Obstetrician/Gynecologist: BIANCA NICHOLS ([id number])[facility] ([facility])[address] [place] [address] Basic metabolic 1998 panelon 04-24-2025 Anion gap [Moles/Vol] 8 mmol/L 3 - 13 mmol/L [facility] Calcium [Mass/Vol] 8.4 mg/dL Low 8.8 - 10. 0 mg/dL [facility] Chloride [Moles/Vol] 101 mmol/L 98 - 10 7 mmol/L [facility] CO2 [Moles/Vol] 27 mmol/L 23 - 31 mmol/L [facility] Creatinine [Mass/Vol] 0.59 mg/dL Low 0.72 - 1.25 mg/dL [facility] GFR/1.73 sq M.predicted (S/P/Bld) [Vol rate/Area] - PINF [facility] Comment on above: Calculation based on the Chronic Kidney Disease Epidemiology Collaboration (CKD-EPI) equation refit without adjustment for race Glucose [Mass/Vol] 113 mg/dL 82 - 115 mg/dL [facility] Interpretation and review of laboratory results Abnormal [facility] Potassium [Moles/Vol] 4 mmol/L 3.5 - 5.1 mmol/L [facility] Comment on above: Plasma potassium leonie ues may be up to 0.5 mmol/L lower than serum values. Sodium [Moles/Vol] 136 mmol/L 136 - 145 mmol/L [facility] Urea nitrogen [Mass/Vol] 7 mg/dL Low 9 - 23 mg/dL [facility] CBC W Auto Differential pane l (Bld)on 04-24-2025 Basophils (Bld) [#/Vol] 0.1 10*3/uL 0.0 - 0.2 10*3/uL [facility] Basophils/100 WBC (Bld) 0.6 % 0.0 - 2.0 % [facility] Eosinophils (Bld) [#/Vol] 0.4 10*3/uL 0.0 - 0.5 10*3/uL [facility] Eosinophils/100 WBC (Bld) 4 % 0.0 - 6.0 % [facility] Erythrocyte distribution width (RBC) [Ratio] 14.9 % 11.5 - 15.0 % [facility] Hematocrit (Bld) [Volume fraction] 32.8 % Low 40.0 - 52.0 % [facility] Hemoglobin (Bld) [Mass/Vol] 10.6 g/dL Low 13.0 - 18.0 g/dL [facility] Immature granulocytes (Bld) [#/Vol] 0 10*3/uL NINF - 0.1 10*3/uL [facility] Immature granulocytes/100 WBC (Bld) 0.4 % 0.0 - 2.0 % [facility] Interpretation and review of laboratory results Abnormal [facility] Lymphocytes (Bld) [#/Vol] 2.2 10*3/uL 1.0 - 4.3 10*3/uL [facility] Lymphocytes/100 WBC (Bld) 23.9 % 15.0 - 45.0 % [facility] MCH (RBC) [Entitic mass] 28.8 pg 26. 0 - 34.0 pg [facility] MCHC (RBC) [Mass/Vol] 32.3 % 30.5 - 36.0 % [facility] MCV (RBC) [Entitic vol] 89.1 fL 77.0 - 99.0 fL [facility] Monocytes (Bld) [#/Vol] 0.7 10*3/uL 0.0 - 0.9 10*3/uL [facility] Monocytes/100 WBC (Bld) 8 % 5.0 - 13.0 % [facility] Neutrophils (Bld) [#/Vol] 5.9 10*3/uL 1.8 - 7.5 10*3/uL [facility] Neutrophils/100 WBC (Bld) 63.1 % 38.0 - 82.0 % [facility] Nucleated RBC/100 WBC (Bld) [Ratio] 0 % [facility] [employer] Platelet mean volume (Bld) [Entitic vol] 9.8 fL 9.0 - 12.7 fL [facility] Platelets (Bld) [#/Vol] 367 10*3/uL 140 - 440 10*3/uL [facility] RBC (Bld) [#/Vol] 3.68 10*6/uL Low 4.40 - 5.9 0 10*6/uL [facility] WBC (Bld) [#/Vol] 9.3 10*3/uL 3.6 - 10.7 10*3/uL [facility] CBC WITH AUTO DIFFERENTIALon 04-24-2025 Basophils (Bld) [#/Vol] 0.1 10*3/uL Normal 0.0-0.2 [facility] Comment on above: Performed By: #### L [id number] ####Obstetrician/Gynecologist: BIANCA NICHOLS ([phone])[facility] ([facility])[address] [place] [address] Basophils/100 WBC (Bld) 0.6 % Normal 0.0-2.0 [facility] Comment on above: Performed By: #### L [id number] ####Obstetrician/Gynecologist: BIANCA NICHOLS ([phone])[facility] ([facility])[address] [place] [address] Eosinophils (Bld) [#/Vol] 0.4 10*3/uL Normal 0.0-0.5 [facility] Comment on above: Performed By: #### L [id number] ####Obstetrician/Gynecologist: BIANCA NICHOLS ([phone])[facility] ([facility])[address] [place] [address] Eosinophils/100 WBC (Bld) 4.0 % Normal 0.0-6.0 [facility] Comment on above: Performed By: #### L [id number] ####Obstetrician/Gynecologist: BIANCA NICHOLS ([phone])[facility] ([facility])[address] [place] [address] Erythrocyte distribution width (RBC) [Ratio] 14.9 % Normal 11.5-15.0 [facility] Comment on above: Performed By: #### L [id number] ####Obstetrician/Gynecologist: BIANCA [id number])[facility] ([address] Hematocrit (Bld) [Volume fraction] 32.8 % Low 40.0-52.0 [facility] Comment on above: Performed By: #### L [id number] ####Obstetrician/Gynecologist: BIANCA NICHOLS ([id number])[facility])[address] [place] [address] Hemoglobin (Bld) [Mass/Vol] 10.6 g/dL Low 13.0-18.0 [facility] Comment on above: Performed By: #### L [id number] ####Obstetrician/Gynecologist: BIANCA NICHOLS ([phone])[facility])[address] [place] [address] IMMATURE GRANS % 0.4 % Normal 0.0-2.0 [facility] Comment on above: Performed By: #### L [id number] ####Obstetrician/Gynecologist: BIANCA NICHOLS ([id number])[facility])[address] [place] [address] IMMATURE GRANS ABSOLUTE 0.0 10*3/uL Normal <0.1 [facility] Comment on above: Performed By: #### L [id number] ####Obstetrician/Gynecologist: BIANCA NICHOLS ([id number])[facility])[address] [place] [address] Lymphocytes (Bld) [#/Vol] 2.2 10*3/uL Normal 1.0-4.3 [facility] Comment on above: Performed By: #### L [id number] ####Obstetrician/Gynecologist: BIANCA NICHOLS ([id number])[facility])[address] [place] [address] Lymphocytes/100 WBC (Bld) 23.9 % Normal 15.0-45.0 [facility] Comment on above: Performed By: #### L [id number] ####Obstetrician/Gynecologist: BIANCA NICHOLS ([phone])[facility])[address] [place] [address] MCH (RBC) [Entitic mass] 28.8 pg Normal 26.0-34.0 [facility] Comment on above: Performed By: #### L [id number] ####Obstetrician/Gynecologist: BIANCA NICHOLS ([phone])[facility])[address] [place] [address] MCHC 32.3 % Normal 30.5-36.0 [facility] Comment on above: Performed By: #### L [id number] ####Obstetrician/Gynecologist: BIANCA NICHOLS ([phone])[facility])[address] [place] [address] MCV (RBC) [Entitic vol] 89.1 fL Normal 77.0-99.0 [facility] Comment on above: Performed By: #### L [id number] ####Obstetrician/Gynecologist: BIANCA NICHOLS ([id number])[facility])[address] [place] [address] Monocytes (Bld) [#/Vol] 0.7 10*3/uL Normal 0.0-0.9 [facility] Comment on above: Performed By: #### L [id number] ####Obstetrician/Gynecologist: BIANCA NICHOLS ([id number])[facility])[address] [place] [address] Monocytes/100 WBC (Bld) 8.0 % Normal 5.0-13.0 [facility] Comment on above: Performed By: #### L [id number] ####Obstetrician/Gynecologist: BIANCA NICHOLS ([id number])[facility])[address] [place] [address] NEUTROPHILS ABSOLUTE 5.9 10*3/uL Normal 1.8-7.5 [facility] Comment on above: Performed By: #### L [id number] ####Obstetrician/Gynecologist: BIANCA NICHOLS ([id number])[facility])[address] [place] [address] Neutrophils/100 WBC (Bld) 63.1 % Normal 38.0-82.0 [facility] Comment on above: Performed By: #### L [id number] ####Obstetrician/Gynecologist: BIANCA NICHOLS ([phone])[facility] ([facility])[address] [place] [address] NRBC 0.0 /100 WBCs Normal 0.0-2.0 [facility] Comment on above: Performed By: #### L [id number] ####Obstetrician/Gynecologist: BIANCA NICHOLS ([id number])[facility])[address] [place] [address] Platelet mean volume (Bld) [Entitic vol] 9.8 fL Normal 9.0-12.7 [facility] Comment on above: Performed By: #### L [id number] ####Obstetrician/Gynecologist: BIANCA NICHOLS ([phone])[facility])[address] [place] [address] Platelets (Bld) [#/Vol] 367 10*3/uL Normal 140-440 [facility] Comment on above: Performed By: #### L [id number] ####Obstetrician/Gynecologist: BIANCA NICHOLS ([id number])[facility] ([facility])[address] [place] [address] RBC (Bld) [#/Vol] 3.68 10*6/uL Low 4.40-5.90 [facility] Comment on above: Performed By: #### L [id number] ####Obstetrician/Gynecologist: BIANCA NICHOLS ([id number])[facility])[address] [place] [address] WBC (Bld) [#/Vol] 9.3 10*3/uL Normal 3.6-10.7 [facility] Comment on above: Performed By: #### L [id number] ####Obstetrician/Gynecologist: BIANCA NICHOLS ([id number])[facility])[address] [place] [address] CULTURE ANAEROBICon 04-24-20 25 CULTURE ANAEROBIC ANAEROBIC CULTURE Reference No growth at 5 days [ S = SUSCEPTIBLE R = RESISTANT I = INTERMEDIATE S-DD = Susceptible-dose dependent NS = Non-susceptible NO = No Interpretation ] Normal [facility] Comment on above: Performed By: #### L [id number] #### Obstetrician/Gynecologist: BIANCA NICHOLS ([id number]) [facility]) [address] [place] [address] CULTURE ANAEROBIC ANAEROBIC CULTURE Reference Mixed aerobic and anaerobic bacteria present. CLOSTRIDIUM RAMOSUM Few Clostridium ramosum (A) [ S = SUSCEPTIBLE R = RESISTANT I = INTERMEDIATE S-DD = Susceptible-dose dependent NS = Non-susceptible NO = No Interpretation ] Normal [facility] Comment on above: Performed By: #### L [id number] #### Obstetrician/Gynecologist: BIANCA NICHOLS ([id number]) [facility] ([facility]) [address] [place] [address] CULTURE, AEROBIC BACTERIA WI TH GRAM STAINon [...] Non-susceptible NO = No Interpretation ] Normal [facility] Comment on above: Performed By: #### L [id number] #### Obstetrician/Gynecologist: BIANCA NICHOLS ([id number]) [facility]) [address] [place] [address] CULTURE, AEROBIC BACTERIA WITH GRAM STAIN CULTURE [...] Non-susceptible NO = No Interpretation ] Normal [facility] Comment on above: Performed By: #### L [id number] #### Obstetrician/Gynecologist: BIANCA NICHOLS ([id number]) [facility] ([facility]) [address] [place] [address] Laboratory - Chemistry and C hemistry - challengeon 04-24-2025 Glucose [Mass/Vol] 348 mg/dL High 70 - 100 mg/dL [facility] Glucose [Mass/Vol] 407 mg/dL High 70 - 100 mg/dL [facility] Glucose [Mass/Vol] 259 mg/dL High 70 - 100 mg/dL [facility] Glucose [Mass/Vol] 135 mg/dL High 70 - 100 mg/dL [facility] Glucose [Mass/Vol] 126 mg/dL High 70 - 100 mg/dL [facility] Laboratory - Drug toxicology on 04-24-2025 Vancomycin trough [Mass/Vol] 12 ug/mL [facility] No Panel Informationon 04-24 Interpretation and review of laboratory results Abnormal [facility] Performed by: [place] [address] CLIA ID: [id number] [facility] Interpretation and review of laboratory results Abnormal [facility] Performed by: [place] [address] CLIA ID: [id number] [facility] Interpretation and review of laboratory results Abnormal [facility] Performed by: [address] [address] CLIA ID: [id number] [facility] Interpretation and review of laboratory results Abnormal [facility] Performed by: [place] [address] CLIA ID: [id number] [facility] Interpretation and review of laboratory results Abnormal [facility] Performed by: [facility], [address], [place] [address] CLIA ID: [id number] [facility] Nursing Noteon 04-24-2025 Nursing Note Patient states [email or web address] y here to update Normal [facility] Op Noteon 04-24-2025 Op Note - Attestation signed by Kaela Durand MD at 04/26/2025 4:55 PM I attest that I was present and supervised the entire procedure. I agree with the operative details as documented in the resident's note. Excisional debridement of necrotic ischial wound, total wound measurement 7 x 4 cm = 28 cm2 [CPT 46316, 07242] Open biopsy of left ischium [CPT 56160] This note is electronically signed by: Kaela [...] achieved with bovie electrocautery. Two pieces of [place] patch were placed in the wound bed. Betadine soak Kerlix was then packed in the wound. Dressings were applied overtop. The sponge, instrument and needle counts were correct at the end of the case. The patient was extubated and transferred to PACU in stable condition. [facility] Progress Noteon 04-24-2025 Progress Note Nutrition [...] (BLE Edema: Moderate pitting, indentation subsides rapidly) Dragger Out Strength: Not Performed Chief Complaint Patient presents with Wound Infection Per EMS pt was sent here from the [facility] for wound infections. 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 Nurse states she ordered [...] (kg): 82.41 kg Total Energy Requirements (kcals/day): 9639-2647 (25-30 kcals/kg) Weight Used for Protein Requirements: [...] MAP (mmHg): (more content not included)... 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 Progress Note - Attestation signed by [...] of Trauma Department of Surgery [facility] [1] Patient Active Problem List Diagnosis [...] s/p surgical complication with Dr. Ashley at [facility], HLD, HTN, MDD, OA, a-fib on eliquis, chronic sacral wounds who [facility] after he states the nurses have become [...] 24 hours) (more content not included)... Normal [facility] VANCOMYCIN, AUC TIMED DOSING on 04-24-2025 VANCOMYCIN, AUC 12.0 ug/mL Normal [facility] Comment on above: Result Comment: [facility] [place] COMMENTS: Please draw random level at least >2 hours after the end of the last vancomycin infusion, or 30-minutes before next infusion. Toxicity is seen at concentrations >80-100 ug/mL Therapeutic (Peak) range: 20-40 Therapeutic (Trough) range: 5-10 Performed By: #### L [id number] ####Obstetrician/Gynecologist: BIANCA NICHOLS ([id number])[address] Vancomycin trough [Mass/Vol] on 04-24-2025 Toxicity is seen at concentrations >80-100 ug/mL Therapeutic (Peak) range: 20-40 Therapeutic (Trough) range: 5-10 [facility] 30on 04-23-2025 30 Problem: Pain - Adul t Goal: Verbalizes/displays adequate comfort level or baseline comfort level Outcome: Progressing Problem: Safety - Adult Goal: Free from fall injury Outcome: Progressing Problem: Chronic Conditions and Co-morbidities Goal: Patient's chronic conditions and co-morbidity symptoms are monitored and maintained or improved Outcome: Progressing Normal [facility] 30 Problem: Pain - Adul t [...] and maintained or improved Outcome: Progressing Normal [facility] BASIC METABOLIC PANELon 07-2 0-2024 Anion gap [Moles/Vol] 7 mmol/L Normal 3-13 [facility] Comment on above: Performed By: #### L [id number] ####Obstetrician/Gynecologist: BIANCA NICHOLS ([id number])[facility] ([facility])[address] [place] [address] Calcium [Mass/Vol] 8.1 mg/dL Low 8.8-10.0 [facility] Comment on above: Performed By: #### L [id number] ####Obstetrician/Gynecologist: BIANCA NICHOLS ([id number])[facility] ([facility])[address] [place] [address] Chloride [Moles/Vol] 105 mmol/L Normal 98-107 [facility] Comment on above: Performed By: #### L [id number] ####Obstetrician/Gynecologist: BIANCA NICHOLS ([id number])[facility] ([facility])[address] [place] [address] CO2 [Moles/Vol] 21 mmol/L Low 23-31 [facility] Comment on above: Performed By: #### L [id number] ####Obstetrician/Gynecologist: BIANCA NICHOLS ([id number])[facility])[address] [place] [address] Creatinine [Mass/Vol] 0.54 mg/dL Low 0.72-1.25 [facility] Comment on above: Performed By: #### L [id number] ####Obstetrician/Gynecologist: BIANCA NICHOLS ([phone])[facility])[address] [place] [address] GLOMERULAR FILTRATION RATE ML/MIN/1.73 SQ M.PREDICTED >90.0 Normal >60.0 [facility] Comment on above: Result Comment: Calc ulation based on the Chronic Kidney Disease Epidemiology Collaboration (CKD-EPI) equation refit without adjustment for race Performed By: #### L [id number] ####Obstetrician/Gynecologist: BIANCA NICHOLS ([id number])[facility])[address] [place] [address] Glucose [Mass/Vol] 133 mg/dL High 82-115 [facility] Comment on above: Performed By: #### L AB15 ####Obstetrician/Gynecologist: BIANCA NICHOLS ([id number])[facility])[address] [place] [address] Potassium [Moles/Vol] 3.8 mmol/L Normal 3.5-5.1 [facility] Comment on above: Result Comment: [facility] potassium values may be up to 0.5 mmol/L lower than serum values. Performed By: #### L AB15 ####Obstetrician/Gynecologist: BIANCA NICHOLS ([id number])[facility])[address] [place] [address] Sodium [Moles/Vol] 133 mmol/L Low 136-145 [facility] Comment on above: Performed By: #### L [id number] ####Obstetrician/Gynecologist: BIANCA NICHOLS ([id number])[address] Urea nitrogen [Mass/Vol] 8 mg/dL Low 9-23 [facility] Comment on above: Performed By: #### L AB15 ####Obstetrician/Gynecologist: BIANCA NICHOLS ([id number])[address] Basic metabolic 1998 panelon 04-23-2025 Anion gap [Moles/Vol] 7 mmol/L 3 - 13 mmol/L [facility] Calcium [Mass/Vol] 8.1 mg/dL Low 8.8 - 10. 0 mg/dL [facility] Chloride [Moles/Vol] 105 mmol/L 98 - 10 7 mmol/L [facility] CO2 [Moles/Vol] 21 mmol/L Low 23 - 31 mmol/L [facility] Creatinine [Mass/Vol] 0.54 mg/dL Low 0.72 - 1.25 mg/dL [facility] [employer] GFR/1.73 sq M.predicted (S/P/Bld) [Vol rate/Area] - PINF [facility] Comment on above: Calculation based on the Chronic Kidney Disease Epidemiology Collaboration (CKD-EPI) equation refit without adjustment for race Glucose [Mass/Vol] 133 mg/dL High 82 - 115 mg/dL [facility] Interpretation and review of laboratory results Abnormal [facility] Potassium [Moles/Vol] 3.8 mmol/L 3.5 - 5.1 mmol/L [facility] Comment on above: Plasma potassium leonie ues may be up to 0.5 mmol/L lower than serum values. Sodium [Moles/Vol] 133 mmol/L Low 136 - 145 mmol/L [facility] [employer] Urea nitrogen [Mass/Vol] 8 mg/dL Low 9 - 23 mg/dL [facility] CBC W Auto Differential pane l (Bld)on 04-23-2025 Basophils (Bld) [#/Vol] 0.1 10*3/uL 0.0 - 0.2 10*3/uL [facility] [employer] Basophils/100 WBC (Bld) 0.5 % 0.0 - 2.0 % [facility] [employer] Eosinophils (Bld) [#/Vol] 0.3 10*3/uL 0.0 - 0.5 10*3/uL [facility] [employer] Eosinophils/100 WBC (Bld) 3.6 % 0.0 - 6.0 % [facility] Erythrocyte distribution width (RBC) [Ratio] 14.9 % 11.5 - 15.0 % [facility] [employer] Hematocrit (Bld) [Volume fraction] 30.7 % Low 40.0 - 52.0 % [facility] [employer] Hemoglobin (Bld) [Mass/Vol] 9.9 g/dL Low 13.0 - 18.0 g/dL [facility] [employer] Immature granulocytes (Bld) [#/Vol] 0 10*3/uL NINF - 0.1 10*3/uL [facility] [employer] Immature granulocytes/100 WBC (Bld) 0.4 % 0.0 - 2.0 % [facility] Interpretation and review of laboratory results Abnormal [facility] [employer] Lymphocytes (Bld) [#/Vol] 2.2 10*3/uL 1.0 - 4.3 10*3/uL [facility] [employer] Lymphocytes/100 WBC (Bld) 23.6 % 15.0 - 45.0 % [facility] MCH (RBC) [Entitic mass] 28.5 pg 26. 0 - 34.0 pg [facility] MCHC (RBC) [Mass/Vol] 32.2 % 30.5 - 36.0 % [facility] MCV (RBC) [Entitic vol] 88.5 fL 77.0 - 99.0 fL [facility] Monocytes (Bld) [#/Vol] 0.8 10*3/uL 0.0 - 0.9 10*3/uL [facility] Monocytes/100 WBC (Bld) 8.7 % 5.0 - 13.0 % [facility] Neutrophils (Bld) [#/Vol] 5.9 10*3/uL 1.8 - 7.5 10*3/uL [facility] Neutrophils/100 WBC (Bld) 63.2 % 38.0 - 82.0 % [facility] Nucleated RBC/100 WBC (Bld) [Ratio] 0 % [facility] Platelet mean volume (Bld) [Entitic vol] 9.7 fL 9.0 - 12.7 fL [facility] Platelets (Bld) [#/Vol] 352 10*3/uL 140 - 440 10*3/uL [facility] RBC (Bld) [#/Vol] 3.47 10*6/uL Low 4.40 - 5.9 0 10*6/uL [facility] WBC (Bld) [#/Vol] 9.4 10*3/uL 3.6 - 10.7 10*3/uL [facility] CBC WITH AUTO DIFFERENTIALon 04-23-2025 Basophils (Bld) [#/Vol] 0.1 10*3/uL Normal 0.0-0.2 [facility] Comment on above: Performed By: #### L [id number] ####Obstetrician/Gynecologist: BIANCA NICHOLS ([id number])[address] Basophils/100 WBC (Bld) 0.5 % Normal 0.0-2.0 [facility] Comment on above: Performed By: #### L [id number] ####Obstetrician/Gynecologist: BIANCA NICHOLS ([id number])[facility])[address] [place] [address] Eosinophils (Bld) [#/Vol] 0.3 10*3/uL Normal 0.0-0.5 [facility] Comment on above: Performed By: #### L [id number] ####Obstetrician/Gynecologist: BIANCA NICHOLS ([id number])[facility])[address] [place] [address] Eosinophils/100 WBC (Bld) 3.6 % Normal 0.0-6.0 [facility] Comment on above: Performed By: #### L [id number] ####Obstetrician/Gynecologist: BIANCA NICHOLS ([id number])[address] Erythrocyte distribution width (RBC) [Ratio] 14.9 % Normal 11.5-15.0 [facility] Comment on above: Performed By: #### L [id number] ####Obstetrician/Gynecologist: BIANCA NICHOLS ([id number])[facility])[address] [place] [address] Hematocrit (Bld) [Volume fraction] 30.7 % Low 40.0-52.0 [facility] Comment on above: Performed By: #### L [id number] ####Obstetrician/Gynecologist: BIANCA NICHOLS ([id number])[address] Hemoglobin (Bld) [Mass/Vol] 9.9 g/dL Low 13.0-18.0 [facility] Comment on above: Performed By: #### L [id number] ####Obstetrician/Gynecologist: BIANCA NICHOLS ([id number])[facility])[address] [place] [address] IMMATURE GRANS % 0.4 % Normal 0.0-2.0 [facility] Comment on above: Performed By: #### L [id number] ####Obstetrician/Gynecologist: BIANCA NICHOLS ([id number])[facility])[address] [place] [address] IMMATURE GRANS ABSOLUTE 0.0 10*3/uL Normal <0.1 [facility] Comment on above: Performed By: #### L [id number] ####Obstetrician/Gynecologist: BIANCA NICHOLS ([id number])[facility])[address] [place] [address] Lymphocytes (Bld) [#/Vol] 2.2 10*3/uL Normal 1.0-4.3 [facility] Comment on above: Performed By: #### L [id number] ####Obstetrician/Gynecologist: BIANCA NICHOLS ([id number])[facility])[address] [place] [address] Lymphocytes/100 WBC (Bld) 23.6 % Normal 15.0-45.0 [facility] Comment on above: Performed By: #### L [id number] ####Obstetrician/Gynecologist: BIANCA NICHOLS ([id number])[facility])[address] [place] [address] MCH (RBC) [Entitic mass] 28.5 pg Normal 26.0-34.0 [facility] Comment on above: Performed By: #### L [id number] ####Obstetrician/Gynecologist: BIANCA NICHOLS ([id number])[facility])[address] [place] [address] MCHC 32.2 % Normal 30.5-36.0 [facility] Comment on above: Performed By: #### L [id number] ####Obstetrician/Gynecologist: BIANCA NICHOLS ([id number])[facility])[address] [place] [address] MCV (RBC) [Entitic vol] 88.5 fL Normal 77.0-99.0 [facility] Comment on above: Performed By: #### L [id number] ####Obstetrician/Gynecologist: BIANCA NICHOLS ([id number])[facility])[address] [place] [address] Monocytes (Bld) [#/Vol] 0.8 10*3/uL Normal 0.0-0.9 [facility] Comment on above: Performed By: #### L [id number] ####Obstetrician/Gynecologist: BIANCA NICHOLS ([id number])[facility] ([facility])[address] [place] [address] [place] Monocytes/100 WBC (Bld) 8.7 % Normal 5.0-13.0 [facility] Comment on above: Performed By: #### L [id number] ####Obstetrician/Gynecologist: BIANCA NICHOLS ([id number])[facility] ([facility])[address] [place] [address] NEUTROPHILS ABSOLUTE 5.9 10*3/uL Normal 1.8-7.5 [facility] Comment on above: Performed By: #### L [id number] ####Obstetrician/Gynecologist: BIANCA NICHOLS ([id number])[facility] ([facility])[address] [place] [address] Neutrophils/100 WBC (Bld) 63.2 % Normal 38.0-82.0 [facility] Comment on above: Performed By: #### L [id number] ####Obstetrician/Gynecologist: BIANCA NICHOLS ([id number])[facility] ([facility])[address] [place] [address] NRBC 0.0 /100 WBCs Normal 0.0-2.0 [facility] Comment on above: Performed By: #### L [id number] ####Obstetrician/Gynecologist: BIANCA NICHOLS ([id number])[facility] ([facility])[address] [place] [address] Platelet mean volume (Bld) [Entitic vol] 9.7 fL Normal 9.0-12.7 [facility] Comment on above: Performed By: #### L [id number] ####Obstetrician/Gynecologist: BIANCA NICHOLS ([id number])[facility] ([facility])[address] [place] [address] [place] Platelets (Bld) [#/Vol] 352 10*3/uL Normal 140-440 [facility] Comment on above: Performed By: #### L [id number] ####Obstetrician/Gynecologist: BIANCA NICHOLS ([id number])[facility] ([facility])[address] [place] [address] RBC (Bld) [#/Vol] 3.47 10*6/uL Low 4.40-5.90 [facility] Comment on above: Performed By: #### L [id number] ####Obstetrician/Gynecologist: BIANCA NICHOLS ([id number])[facility] ([facility])[address] [place] [address] WBC (Bld) [#/Vol] 9.4 10*3/uL Normal 3.6-10.7 [facility] Comment on above: Performed By: #### L [id number] ####Obstetrician/Gynecologist: BIANCA NICHOLS ([id number])[facility] ([facility])[address] [place] [address] Laboratory - Chemistry and C hemistry - challengeon 04-23-2025 Glucose [Mass/Vol] 189 mg/dL High 70 - 100 mg/dL [facility] Glucose [Mass/Vol] 119 mg/dL High 70 - 100 mg/dL [facility] Glucose [Mass/Vol] 231 mg/dL High 70 - 100 mg/dL [facility] Glucose [Mass/Vol] 217 mg/dL High 70 - 100 mg/dL [facility] [employer] No Panel Informationon 04-23 Interpretation and review of laboratory results Abnormal [facility] Performed by: [place] [address] CLIA ID: [id number] [facility] Interpretation and review of laboratory results Abnormal [facility] Performed by: [place] [address] CLIA ID: [id number] [facility] Interpretation and review of laboratory results Abnormal [facility] Performed by: [place] [address] CLIA ID: [id number] [facility] Interpretation and review of laboratory results Abnormal [facility] Performed by: [place] [id number] CLIA ID: [id number] [facility] 30on 04-22-2025 30 Problem: Pain - Adul [...] monitored and maintained or improved Outcome: Progressing [facility] 30 Problem: Pain - Adul t Goal: Verbalizes/displays adequate comfort level or baseline comfort level Outcome: Progressing Problem: Safety - Adult Goal: Free from fall injury Outcome: Progressing Problem: Discharge Planning Goal: Discharge to home or other facility with appropriate resources Outcome: Progressing Problem: Chronic Conditions and Co-morbidities Goal: Patient's chronic conditions and co-morbidity symptoms are monitored and maintained or improved Outcome: Progressing [facility] 36on 04-22-2025 36 Name of Caller: Milady Contact Physician requesting Consult: Alberto Boogie AALIYAH / attending provider when ordered Dr. Georgette Bueno [phone] Patient Location (facility name, room, bed number): [address] Patient Diagnosis/Reason for Consult: Wound infection, on Cefepime Provider being paged: Dr. Alvarez Time page was sent: 8:29 AM Department of provider being paged: Infectious Disease Page Content: Received a call from [address] and spoke to [employer] she was asked to send out a consult from Alberto Boogie AALIYAH / attending provider when ordered Dr. Georgette Bueno [phone], is requesting a consult. Information that was provided is: wound infection, on cefepime. PT in [place] [address] B Message sent via Secure Chat [facility] CT PELVIS W IV CONTRASTon CT [...] Electronically Signed Date/Time: 04/22/2025 12:[address] [facility] CT Pelvis W contrast Poli 1. 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 History of Present Illness: 64 M with h/o MRSA lumbar epidural abscess from 2021, s/p decompression and fusion, but left paraplegic with neurogenic bladder. Recent hospitlaizaitons for PNA as well as [facility] Proteus UTI/ sepsis recently at [facility]. He had a sacral decubitus ulcer for [...] Resource Strain: Low Risk (04/24/2023) Received from [facility] Overall Financial Resource Strain (CARDIA) Difficulty [...] atrophy to (more content not included)... Normal [facility] Consult - Attestation signed by Meliton [...] appropriate exam and evaluation Meliton Carrero MD, [facility] Trauma, Surgical Critical Care & Acute Care Surgery Division of Trauma Department of Surgery [facility] [1] Patient Active Problem List Diagnosis [...] Department of General Surgery Surgical Service - [facility] Resident Consult Note 04/22/2025 CHIEF COMPLAINT: Chief Complaint Patient presents with Wound Infection Per EMS pt was sent here from the [facility] for wound infections. Pt has two wound [...] s/p surgical complication with Dr. Ashley at [facility], HLD, HTN, MDD, OA, a-fib on eliquis, chronic sacral wounds who [facility] his [facility] after he states the nurses have become [...] Labs reviewed signific (more content not included)... [facility] Consult Pharmacy Managed Vancomycin Dosing Service [...] creatinine, and vancomycin levels interfaced automatically to [employer] and data has been analyzed and interpreted. [...] DATE: 04/22/25 TIME: 2:39 AM Nina Workman [facility] Clinical Pharmacist Available via Secure Chat Normal [facility] Laboratory - Chemistry and C hemistry - challengeon 04-22-2025 Glucose [Mass/Vol] 157 mg/dL High 70 - 100 mg/dL [facility] Glucose [Mass/Vol] 250 mg/dL High 70 - 100 mg/dL [facility] Glucose [Mass/Vol] 356 mg/dL High 70 - 100 mg/dL [facility] Glucose [Mass/Vol] 277 mg/dL High 70 - 100 mg/dL [facility] Average glucose Estimated from glycated hemoglobin (Bld) [Mass/Vol] 180 mg/dL [facility] Laboratory - Drug toxicology on 04-22-2025 Vancomycin trough [Mass/Vol] 12.4 ug/mL [facility] Laboratory - Hematology and Cell countson 04-22-2025 HbA1c (Bld) [Mass fraction] 7.9 % High [facility] Comment on above: Normal less than 5.7 % Prediabetes 5.7% to 6.4% Diabetes 6.5% or higher --HgbA1C levels may not be accurate in patients who have renal disease, received recent blood transfusions, are anemic, or who have dyshemoglobinemia. No Panel Informationon 04-22 Interpretation and review of laboratory results Abnormal [facility] Performed by: [facility], [address] [place] [address] CLIA ID: [id number] [facility] Interpretation and review of laboratory results Abnormal [facility] Performed by: [facility], [address] [place] [address] CLIA ID: [id number] [facility] Interpretation and review of laboratory results Abnormal [facility] Performed by: [facility], [address] [place] [address] CLIA ID: [id number] [facility] Interpretation and review of laboratory results Abnormal [facility] Performed by: [facility], [address] [place] [address] CLIA ID: [id number] [facility] Interpretation and review of laboratory results Abnormal [facility] HbA1c values of 5.7-6.4 percent indicate an increased risk for developing diabetes mellitus. HbA1c values greater than or equal to 6.5 percent are diagnostic of diabetes mellitus. For diagnosis of diabetes in individuals without unequivocal hyperglycemia, results should be confirmed by repeat testing. [facility] VANCOMYCIN, AUC TIMED DOSING on 04-22-2025 VANCOMYCIN, AUC 12.4 ug/mL Normal [facility] Comment on above: Result Comment: [facility] [place] COMMENTS: Please draw random level at least >2 hours after the end of the last vancomycin infusion, or 30-minutes before next infusion. Toxicity is seen at concentrations >80-100 ug/mL Therapeutic (Peak) range: 20-40 Therapeutic (Trough) range: 5-10 Performed By: #### L [id number] #### Obstetrician/Gynecologist: BIANCA NICHOLS ([id number]) [facility] ([facility]) [address] [place] [address] Vancomycin trough [Mass/Vol] on 04-22-2025 Toxicity is seen at concentrations >80-100 ug/mL Therapeutic (Peak) range: 20-40 Therapeutic (Trough) range: 5-10 [facility] Wound Cultureon 04-22-2025 WC L BUTTOCKS Wound Culture Copy of report sent to Infection Control Printer [id number] 04/20/25 0714 JIM. Meth. resistant Staph. aureus Amount Growth 3+ [...] levoFLOXacin Islt HARINDER 4 R Meropenem Islt HRAINDER <=0.25 S Pip+Tazo Islt HARINDER <=4 S [...] SYN-S S Vancomycin Islt HARINDER <=0.5 Normal [facility] Comment on above: Performed By: #### L 100.7740, L500.0250, L501.2510, L101.9900 #### [facility] [place], [address] BLOOD CULTUREon 04-21-2025 Bacteria identified Cx Nom (Bld) BLOOD CULTURE Reference No growth at 5 days ORDER COMMENTS: Blood Collection Site: Left PICC Purple Lumen [ S = SUSCEPTIBLE R = RESISTANT I = INTERMEDIATE S-DD = Susceptible-dose dependent NS = Non-susceptible NO = No Interpretation ] Normal [facility] Comment on above: Performed By: #### L [id number] #### Obstetrician/Gynecologist: BIANCA NICHOLS ([id number]) [facility]) [address] [place] [address] Bacteria identified Cx Nom (Bld) BLOOD CULTURE Reference No growth at 5 days ORDER COMMENTS: Blood Collection Site: Right Forearm [ S = SUSCEPTIBLE R = RESISTANT I = INTERMEDIATE S-DD = Susceptible-dose dependent NS = Non-susceptible NO = No Interpretation ] Normal [facility] Comment on above: Performed By: #### L [id number] #### Obstetrician/Gynecologist: BIANCA NICHOLS ([id number]) [facility] ([facility]) [address] [place] [address] CBC W Auto Differential pane l (Bld)on 04-21-2025 Basophils (Bld) [#/Vol] 0.1 10*3/uL 0.0 - 0.2 10*3/uL [facility] Basophils/100 WBC (Bld) 0.6 % 0.0 - 2.0 % [facility] [facility] Eosinophils (Bld) [#/Vol] 0.3 10*3/uL 0.0 - 0.5 10*3/uL [facility] Eosinophils/100 WBC (Bld) 2.3 % 0.0 - 6.0 % [facility] Erythrocyte distribution width (RBC) [Ratio] 14.9 % 11.5 - 15.0 % [facility] Hematocrit (Bld) [Volume fraction] 35.6 % Low 40.0 - 52.0 % [facility] Hemoglobin (Bld) [Mass/Vol] 11.7 g/dL Low 13.0 - 18.0 g/dL [facility] Immature granulocytes (Bld) [#/Vol] 0.1 10*3/uL High NINF - 0.1 10*3/uL [facility] Immature granulocytes/100 WBC (Bld) 0.5 % 0.0 - 2.0 % [facility] Interpretation and review of laboratory results Abnormal [facility] [employer] Lymphocytes (Bld) [#/Vol] 2.3 10*3/uL 1.0 - 4.3 10*3/uL [facility] [employer] Lymphocytes/100 WBC (Bld) 18.1 % 15.0 - 45.0 % [facility] MCH (RBC) [Entitic mass] 29 pg 26. 0 - 34.0 pg [facility] MCHC (RBC) [Mass/Vol] 32.9 % 30.5 - 36.0 % [facility] [employer] MCV (RBC) [Entitic vol] 88.3 fL 77.0 - 99.0 fL [facility] [employer] Monocytes (Bld) [#/Vol] 1 10*3/uL High 0.0 - 0.9 10*3/uL [facility] [employer] Monocytes/100 WBC (Bld) 7.8 % 5.0 - 13.0 % [facility] [employer] Neutrophils (Bld) [#/Vol] 8.8 10*3/uL High 1.8 - 7.5 10*3/uL [facility] [employer] Neutrophils/100 WBC (Bld) 70.7 % 38.0 - 82.0 % [facility] [employer] Nucleated RBC/100 WBC (Bld) [Ratio] 0 % [facility] [employer] Platelet mean volume (Bld) [Entitic vol] 9.8 fL 9.0 - 12.7 fL [facility] [employer] Platelets (Bld) [#/Vol] 372 10*3/uL 140 - 440 10*3/uL [facility] [employer] RBC (Bld) [#/Vol] 4.03 10*6/uL Low 4.40 - 5.9 0 10*6/uL [facility] [employer] WBC (Bld) [#/Vol] 12.5 10*3/uL High 3.6 - 10.7 10*3/uL [facility] CBC WITH AUTO DIFFERENTIALon 04-21-2025 Basophils (Bld) [#/Vol] 0.1 10*3/uL Normal 0.0-0.2 [facility] Comment on above: Performed By: #### L AB322, [id number] ####Obstetrician/Gynecologist: BIANCA NICHOLS ([id number])[address] Basophils/100 WBC (Bld) 0.6 % Normal 0.0-2.0 [facility] Comment on above: Performed By: #### Mina AB322, [id number] ####Obstetrician/Gynecologist: BIANCA NICHOLS ([phone])[address] Eosinophils (Bld) [#/Vol] 0.3 10*3/uL Normal 0.0-0.5 [facility] Comment on above: Performed By: #### Mina AB322, [id number] ####Obstetrician/Gynecologist: BIANCA NICHOLS ([phone])[address] Eosinophils/100 WBC (Bld) 2.3 % Normal 0.0-6.0 [facility] Comment on above: Performed By: #### Mina AB322, [id number] ####Obstetrician/Gynecologist: BIANCA NICHOLS ([phone])[address] Erythrocyte distribution width (RBC) [Ratio] 14.9 % Normal 11.5-15.0 [facility] Comment on above: Performed By: #### Mina AB322, [id number] ####Obstetrician/Gynecologist: BIANCA NICHOLS ([phone])[address] Hematocrit (Bld) [Volume fraction] 35.6 % Low 40.0-52.0 [facility] Comment on above: Performed By: #### Mina AB322, [id number] ####Obstetrician/Gynecologist: BIANCA NICHOLS ([id number])[address] Hemoglobin (Bld) [Mass/Vol] 11.7 g/dL Low 13.0-18.0 [facility] Comment on above: Performed By: #### L AB322, [id number] ####Obstetrician/Gynecologist: BIANCA NICHOLS ([phone])[address] IMMATURE GRANS % 0.5 % Normal 0.0-2.0 [facility] Comment on above: Performed By: #### Mina AB322, [id number] ####Obstetrician/Gynecologist: BIANCA NICHOLS ([phone])[facility])[address] [place] [address] IMMATURE GRANS ABSOLUTE 0.1 10*3/uL High <0.1 [facility] Comment on above: Performed By: #### Mina AB322, [id number] ####Obstetrician/Gynecologist: BIANCA NICHOLS ([id number])[facility])[address] [place] [address] Lymphocytes (Bld) [#/Vol] 2.3 10*3/uL Normal 1.0-4.3 [facility] Comment on above: Performed By: #### Mina AB322, [id number] ####Obstetrician/Gynecologist: BIANCA NICHOLS ([phone])[address] Lymphocytes/100 WBC (Bld) 18.1 % Normal 15.0-45.0 [facility] Comment on above: Performed By: #### Mina DE LA ROSA322, [id number] ####Obstetrician/Gynecologist: BIANCA NICHOLS ([phone])[facility])[address] [place] [address] MCH (RBC) [Entitic mass] 29.0 pg Normal 26.0-34.0 [facility] Comment on above: Performed By: #### Mina AB322, [id number] ####Obstetrician/Gynecologist: BIANCA NICHOLS ([id number])[address] MCHC 32.9 % Normal 30.5-36.0 [facility] Comment on above: Performed By: #### Mina AB322, [id number] ####Obstetrician/Gynecologist: BIANCA NICHOLS ([id number])[address] MCV (RBC) [Entitic vol] 88.3 fL Normal 77.0-99.0 [facility] Comment on above: Performed By: #### Mina AB322, [id number] ####Obstetrician/Gynecologist: BIANCA NICHOLS ([phone])[facility])[address] [place] [address] Monocytes (Bld) [#/Vol] 1.0 10*3/uL High 0.0-0.9 [facility] Comment on above: Performed By: #### Mina AB322, [id number] ####Obstetrician/Gynecologist: BIANCA NICHOLS ([id number])[facility] [place] [address] Monocytes/100 WBC (Bld) 7.8 % Normal 5.0-13.0 [facility] Comment on above: Performed By: #### Mina AB322, [id number] ####Obstetrician/Gynecologist: BIANCA NICHOLS ([phone])[facility])[address] [place] [address] NEUTROPHILS ABSOLUTE 8.8 10*3/uL High 1.8-7.5 [facility] Comment on above: Performed By: #### Mina AB322, [id number] ####Obstetrician/Gynecologist: BIANCA NICHOLS ([id number])[facility] ([facility])[address] [place] [address] Neutrophils/100 WBC (Bld) 70.7 % Normal 38.0-82.0 [facility] Comment on above: Performed By: #### Mina AB322, [id number] ####Obstetrician/Gynecologist: BIANCA NICHOLS ([phone])[facility] ([facility])[address] [place] [address] [place] NRBC 0.0 /100 WBCs Normal 0.0-2.0 [facility] Comment on above: Performed By: #### Mina AB322, [id number] ####Obstetrician/Gynecologist: BIANCA NICHOLS ([id number])[facility])[address] [place] [address] Platelet mean volume (Bld) [Entitic vol] 9.8 fL Normal 9.0-12.7 [facility] Comment on above: Performed By: #### L AB322, [id number] ####Obstetrician/Gynecologist: BIANCA NICHOLS ([phone])[facility])[address] [place] [address] Platelets (Bld) [#/Vol] 372 10*3/uL Normal 140-440 [facility] Comment on above: Performed By: #### L AB322, [id number] ####Obstetrician/Gynecologist: BIANCA NICHOLS ([id number])[facility] ([facility])[address] [place] [address] RBC (Bld) [#/Vol] 4.03 10*6/uL Low 4.40-5.90 [facility] Comment on above: Performed By: #### L AB322, [id number] ####Obstetrician/Gynecologist: BIANCA NICHOLS ([phone])[facility])[address] [place] [address] WBC (Bld) [#/Vol] 12.5 10*3/uL High 3.6-10.7 [facility] Comment on above: Performed By: #### L AB322, [id number] ####Obstetrician/Gynecologist: BIANCA NICHOLS ([phone])[facility])[address] [place] [address] COMPREHENSIVE METABOLIC PANE Antonio 04-21-2025 Albumin [Mass/Vol] 2.3 g/dL Low 3.4-4.8 [facility] Comment on above: Performed By: #### L AB17 ####Obstetrician/Gynecologist: BIANCA NICHOLS ([phone])[facility])[address] [place] [address] ALP [Catalytic activity/Vol] 116 U/L Normal 40-150 [facility] Comment on above: Performed By: #### L AB17 ####Obstetrician/Gynecologist: BIANCA NICHOLS ([id number])[facility])[address] [place] [address] ALT [Catalytic activity/Vol] 6 U/L Normal <40 [facility] Comment on above: Performed By: #### L AB17 ####Obstetrician/Gynecologist: BIANCA NICHOLS ([id number])[facility])[address] [place] [address] Anion gap [Moles/Vol] 10 mmol/L Normal 3-13 [facility] Comment on above: Performed By: #### L AB17 ####Obstetrician/Gynecologist: BIANCA NICHOLS ([id number])[facility] ([facility])[address] [place] [address] AST [Catalytic activity/Vol] 13 U/L Normal <34 [facility] Comment on above: Performed By: #### L AB17 ####Obstetrician/Gynecologist: BIANAC NICHOLS ([id number])[facility] ([facility])[address] [place] [address] Bilirubin [Mass/Vol] 0.5 mg/dL Normal <1.2 [facility] Comment on above: Performed By: #### L AB17 ####Obstetrician/Gynecologist: BIANCA NICHOLS ([id number])[facility] ([facility])[address] [place] [address] Calcium [Mass/Vol] 8.5 mg/dL Low 8.8-10.0 [facility] Comment on above: Performed By: #### L AB17 ####Obstetrician/Gynecologist: BIANCA NICHOLS ([phone])[facility] ([facility])[address] [place] [address] [place] Chloride [Moles/Vol] 99 mmol/L Normal 98-107 [facility] Comment on above: Performed By: #### L AB17 ####Obstetrician/Gynecologist: BIANCA NICHOLS ([id number])[facility] ([facility])[address] [place] [address] [place] CO2 [Moles/Vol] 21 mmol/L Low 23-31 [facility] Comment on above: Performed By: #### L AB17 ####Obstetrician/Gynecologist: BIANCA NICHOLS ([phone])[facility])[address] [place] [address] [place] Creatinine [Mass/Vol] 0.65 mg/dL Low 0.72-1.25 [facility] Comment on above: Performed By: #### L AB17 ####Obstetrician/Gynecologist: BAINCA NICHOLS ([phone])[facility])[address] [place] [address] GLOMERULAR FILTRATION RATE ML/MIN/1.73 SQ M.PREDICTED >90.0 Normal >60.0 [facility] Comment on above: Result Comment: Calc ulation based on the Chronic Kidney Disease Epidemiology Collaboration (CKD-EPI) equation refit without adjustment for race Performed By: #### L AB17 ####Obstetrician/Gynecologist: BIANCA NICHOLS ([phone])[facility])[address] [place] [address] Glucose [Mass/Vol] 202 mg/dL High 82-115 [facility] Comment on above: Performed By: #### L AB17 ####Obstetrician/Gynecologist: BIANCA NICHOLS ([id number])[address] Potassium [Moles/Vol] 4.3 mmol/L Normal 3.5-5.1 [facility] Comment on above: Result Comment: [facility] potassium values may be up to 0.5 mmol/L lower than serum values. Performed By: #### L AB17 ####Obstetrician/Gynecologist: BIANCA NICHOLS ([phone])[address] Protein [Mass/Vol] 7.6 g/dL Normal 6.4-8.3 [facility] Comment on above: Performed By: #### L AB17 ####Obstetrician/Gynecologist: BIANCA NICHOLS ([phone])[facility])[address] [place] [address] Sodium [Moles/Vol] 130 mmol/L Low 136-145 [facility] Comment on above: Performed By: #### L AB17 ####Obstetrician/Gynecologist: BIANCA [id number])[facility])[address] [place] [address] [place] Urea nitrogen [Mass/Vol] 10 mg/dL Normal 9- [facility] Comment on above: Performed By: #### L AB17 ####Obstetrician/Gynecologist: BIANCA NICHOLS ([phone])[facility])[address] [place] [address] CULTURE ANAEROBICon 04-21-20 25 CULTURE ANAEROBIC ANAEROBIC CULTURE (A ) Reference ANAEROBIC GRAM NEGATIVE BACILLI, NOT B. FRAGILIS Moderate Anaerobic Gram-negative bacilli, not B. fragilis (A) [ S = SUSCEPTIBLE R = RESISTANT I = INTERMEDIATE S-DD = Susceptible-dose dependent NS = Non-susceptible NO = No Interpretation ] Normal [facility] Comment on above: Performed By: #### L AB39 #### Obstetrician/Gynecologist: BIANCA NICHOLS ([phone]) [facility]) [address] [place] [address] CULTURE, AEROBIC BACTERIA WI TH GRAM STAINon [...] Non-susceptible NO = No Interpretation ] Normal [facility] Comment on above: Performed By: #### L AB39 #### Obstetrician/Gynecologist: BIANCA NICHOLS ([id number]) [facility]) [address] [place] [address] Comprehensive metabolic 1998 panelon 04-21-2025 Albumin [Mass/Vol] 2.3 g/dL Low 3.4 - 4.8 g/dL [facility] ALP [Catalytic activity/Vol] 116 U/L 40 - 150 U/L [facility] ALT [Catalytic activity/Vol] 6 U/L NINF - 40 U/L [facility] Anion gap [Moles/Vol] 10 mmol/L 3 - 13 mmol/L [facility] AST [Catalytic activity/Vol] 13 U/L NINF - 34 U/L [facility] Bilirubin [Mass/Vol] 0.5 mg/dL NINF - 1.2 mg/dL [facility] Calcium [Mass/Vol] 8.5 mg/dL Low 8.8 - 10. 0 mg/dL [facility] Chloride [Moles/Vol] 99 mmol/L 98 - 10 7 mmol/L [facility] CO2 [Moles/Vol] 21 mmol/L Low 23 - 31 mmol/L [facility] Creatinine [Mass/Vol] 0.65 mg/dL Low 0.72 - 1.25 mg/dL [facility] GFR/1.73 sq M.predicted (S/P/Bld) [Vol rate/Area] - PINF [facility] Comment on above: Calculation based on the Chronic Kidney Disease Epidemiology Collaboration (CKD-EPI) equation refit without adjustment for race Glucose [Mass/Vol] 202 mg/dL High 82 - 115 mg/dL [facility] Interpretation and review of laboratory results Abnormal [facility] Potassium [Moles/Vol] 4.3 mmol/L 3.5 - 5.1 mmol/L [facility] Comment on above: Plasma potassium leonie ues may be up to 0.5 mmol/L lower than serum values. Protein [Mass/Vol] 7.6 g/dL 6.4 - 8.3 g/dL [facility] Sodium [Moles/Vol] 130 mmol/L Low 136 - 145 mmol/L [facility] Urea nitrogen [Mass/Vol] 10 mg/dL 9 - 23 mg/dL [facility] ED Nursing Noteon 04-21-2025 ED Nursing Note Placed new meplix pads on open wounds on sacrum. Pictures updated in pt's chart. Normal [facility] ED Provider Noteon ED Provider Note EMERGENCY DEPARTMENT ENCOUNTER Pt Name: Anmol Reynolds Birthdate 1960 Date of evaluation: 04/21/2025 ED Provider: Chele León MD CHIEF COMPLAINT Chief Complaint Patient presents with Wound Infection Per EMS pt was sent here from the [facility] for wound infections. Pt has two wound [...] Response: Oriented Best Motor Response: Follows commands [place] Coma Scale Score: 15 PHYSICAL EXAM ED [...] Eyes: Ex (more content not included)... Normal [facility] ESR (Bld) [Velocity]Ordered By: Grecia Hutton on 04-21-2025 Interpretation and review of laboratory results Abnormal [facility] HEMOGLOBIN A1Con 04-21-2025 Glucose [Mass/Vol] 180 mg/dL Normal [facility] Comment on above: Result Comment: SOSA [...] repeat testing. Performed By: #### L AB90 ####Obstetrician/Gynecologist: BIANCA NICHOLS ([phone])[facility] ([facility])[address] [place] [address] HEMOGLOBIN A1C 7.9 %HbA1C High <5.7 [facility] Comment on above: Result Comment: Norm al less than 5.7% Prediabetes 5.7% to 6.4% Diabetes 6.5% or higher --HgbA1C levels may not be accurate in patients who have renal disease, received recent blood transfusions, are anemic, or who have dyshemoglobinemia. Performed By: #### L AB90 ####Obstetrician/Gynecologist: BIANCA NICHOLS ([phone])[facility] ([facility])[address] [place] [address] LACTIC ACID WITH REFLEXon Lactate [Moles/Vol] 1.1 mmol/L Normal 0.5-2.2 [facility] [employer] [facility] Comment on above: Performed By: #### L [id number] ####Obstetrician/Gynecologist: BIANCA NICHOLS ([id number])[facility] ([facility])[address] [place] [address] Laboratory - Chemistry and C hemistry - challengeon 04-21-2025 Lactate [Moles/Vol] 1.1 mmol/L 0.5 - 2. 2 mmol/L [facility] Laboratory - Hematology and Cell countsOrdered By: Grecia Hutton on 04-21-2025 ESR (Bld) [Velocity] 78 mm/h High [facility] [employer] No Panel Informationon 04-21 Interpretation and review of laboratory results Normal [facility] Progress Noteon 04-21-2025 Progress Note Patient: Anmol [...] ago. States that he is at a [facility] and they were concerned that his wounds [...] EMS pt was sent here from the [facility] for wound infections. Pt has two wound [...] Response: Oriented Best Motor Response: Follows commands [place] (more content not included)... Normal [facility] SEDIMENTATION RATE, AUTOMATE Don 04-21-2025 SEDIMENTATION RATE, ERYTHROCYTE 78 mm/hr High 0-10 [facility] Comment on above: Performed By: #### L [id number], [id number] ####Obstetrician/Gynecologist: BIANCA NICHOLS ([phone])[facility] ([facility])[address] [place] [address] Urine Cultureon 04-20-2025 [facility] Providencia stuartii Nova Count >100,000 Providencia stuartii: REACTION Ampicillin Islt HARINDER >=32 Ampicillin+Sulbac Islt HARINDER R Cefepime Islt HARINDER <=0.12 S cefTRIAXone Islt HARINDER <=0.25 S Ciprofloxacin Islt HARINDER >=4 R Gentamicin Islt HARINDER R levoFLOXacin Islt HARINDER >=8 R Meropenem Islt HARINDER 1 S Nitrofurantoin Islt HARINDER 128 R Pip+Tazo Islt HARINDER <=4 S TMP SMX Islt HARINDER >=320 R Normal [facility] Comment on above: Performed By: #### L 400.0001, M1.2199 #### [facility] [address] [place], [address] Gram Stainon 04-18-2025 GS L BUTTOCKS Gram Stain 4+ Gram positive cocci 1+ Gram negative rods 2+ White Blood Cells Normal [facility] Comment on above: Performed By: #### L 100.0500, L500.4050, L501.6710, L101.9900 #### [facility] [address] [place], [address] Urinalysis, Completeon 04-18 AMORPHOUS 4+ Normal [facility] Comment on above: Order Comment: SRIKANTH TER SPECIMEN Performed By: #### L 400.0001, M1.2199 #### [facility] [address] [place], [address] WBC 0-5 SEEN Normal 0-5 [facility] Comment on above: Order Comment: SRIKANTH TER SPECIMEN Performed By: #### L 400.0001, M1.2199 #### [facility] [address] [place], [address] TRIPLE PHOS 4+ /hpf Normal [facility] Comment on above: Order Comment: SRIKANTH TER SPECIMEN Performed By: #### L 400.0001, M1.0 #### [facility] [address] [place], [address] BACTERIA 0 SEEN Normal None Seen [facility] Comment on above: Order Comment: SRIKANTH TER SPECIMEN Performed By: #### L 400.0001, M100.2200 #### [facility] [address] [place], [address] EPI,SQUAMOUS 0 SEEN Normal 0-5 [facility] Comment on above: Order Comment: SRIKANTH TER SPECIMEN Performed By: #### L 400.0001, M100.2200 #### [facility] [address] [place], [address] Mucus Ql (Urine sed) 0 SEEN Normal [facility] Comment on above: Order Comment: SRIKANTH TER SPECIMEN Performed By: #### L 400.0001, M100.2200 #### [facility] [address] [place], [address] RBC 0 SEEN Normal 0-5 [facility] Comment on above: Order Comment: SRIKANTH TER SPECIMEN Performed By: #### L 400.0001, M100.2200 #### [facility] [address] [place], [address] CNPNon 03-24-2025 CNPN Telephone (UROLAE) GAIL,ANMOL ARAUJO ([id number]) 1960 M Date Time Provider Department 03/24/25 ANMOL HERBERT During your visit today, we recorded the following information about you: Debbie Downing 03/24/2025 9:54 AM Signed Per op note pt should get a renal US in [address] the order? Allergies As of Date: 03/24/2025 (No Known Allergies) Date Reviewed: 03/20/2025 Reviewed by: Rosa Acosta, LIBRADO - Fully Assessed Prescriptions as of 03/24/2025 [...] Of Date 03/24/2025 Noted Resolved NO SHOW [[id number]] 08/31/2013 05/29/2020 Perineal abscess [L02.215] 06/13/2019 05/29/2020 [...] 02/17/2025 Proctoco (more content not included)... Normal [facility] ANES POSTPROC EVALon 025 ANES POSTPROC EVAL HNO ID: [id number] Author: AUDREY SIMMONS MD Service: Anesthesiology Author [...] March 20, 2025 TIME: 12:16 PM CSN: [id number] Normal [facility] ANES PRE-OPon 03-20-2025 ANES PRE-OP HNO ID: [id number] Author: AUDREY SIMMONS MD Service: Anesthesiology Author [...] - Exam was compared with the prior CC echocardiographic exam performed on 01/23/2022. LV wall [...] as needed (more content not included)... 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 MRSA bacteremia 11/27/2021 Neuropathy Nicotine use disorder, F17.2 06/14/2019 Pilonidal cyst with abscess 12/31/2020 Pilonidal cyst without abscess 05/29/2020 Pyelonephritis 11/27/2021 Sciatica Severe protein-calorie malnutrition ([facility]) 09/04/2021 Type 2 diabetes mellitus with hyperglycemia, with long-term current use of insulin ([facility]) 01/18/2021 Ureteral stone 11/25/2021 UTI (urinary tract infection) 11/26/2021 Vertebral osteomyelitis ([facility]) 01/04/2022 PAST SURGICAL HISTORY: PAST SURGICAL [...] Value 02/22 (more content not included)... Normal [facility] OPERATIVE NOon 03-20-2025 OPERATIVE NO HNO ID: [id number] Author: ANMOL HERBERT MD Service: Urology Author Type: Physician Type: Operative Report Filed: 03/21/2025 07:31 Note Text: OPERATIVE/PROCEDURE REPORT LOG ID: [id number] SURGERY/PROCEDURE DATE: 03/20/2025 INCISION/PROCEDURE START TIME: 10:34 AM INCISION CLOSE/PROCEDURE END TIME: 11:03 AM SURGEON(S)/PROCEDURAL IST(S) AND BULB WEEDER(S): Surgeons and Role: * Anmol Herbert MD - Primary * Jose Nesbitt MD - Resident - Assisting No Additional Staff SURGERY/PROCEDURE(S): CYSTOSCOPY, RETROPYELOGRAM: [id number] (CPT?) CYSTOURETHROSCOPY W/ REMOVE URETERAL STENT: 32946 (CPT?) INSERTION STENT DOUBLE J: 43040 (CPT?) ANESTHESIA: General SURGERY/PROCEDURE DETAILS: Anmol Reynolds [...] the beginning of the procedure. Chronic 20 Somali catheter was removed. A 21F cystourethroscope was [...] all mucus and cystoscope was removed. 20 Somali catheter with 10 cc in balloon was replaced. Patient awoken from anesthesia having tolerated the procedure well. Anmol Reynolds Was transferred to recovery room. PRE-OP/PRE-PROCEDURE DIAGNOSIS: Pre-existing ureteral stents bilateral POST-OP/POST-PROCEDUR E DIAGNOSIS: Same ESTIMATED BLOOD LOSS: 0 ml SPECIMENS: None IMPLANTABLE DEVICES: NONE DRAINS: 20 Somali Santana catheter with 10 cc in balloon [...] MD March 21, 2025 7:31 AM Normal [facility] XR RETROGRADE PYELOGRAM BILo n 03-20-2025 XR RETROGRADE PYELOGRAM KENROY * * *Final Report* * * DATE OF EXAM: Mar 20 2025 5:16PM JOSE [id number] - XR RETROGRADE PYELOGRAM KENROY / [...] of ureteral stents and bilateral retrograde pyelograms. Valet Parking Attendant: CECILIA Transcribe Date/Time: Mar 21 2025 8:21A Dictated by : KATHRIN MCKNIGHT MD This examination was interpreted and the report reviewed and electronically signed by: KATHRIN MCKNIGHT MD on Mar 21 2025 8:23AM EST [id number] N [facility] NURSING PROGon 03-17-2025 NURSING PROG HNO ID: [id number] Author: VICTORIANO GRANT RN Service: ? Author Type: Registered Nurse Type: Nursing Progress Note Filed: 03/17/2025 13:04 Note Text: Spoke w/ [facility],surgical schedule @ 's office to verify scheduled time of Sx for Thursday;AND was directed that OR scheduled for 10:00;AND Eliquis does Not need to be held for procedure. Normal [facility] 36on 03-15-2025 36 Spoke to nursing facility who states Pt is going to proceed with surgery at [facility]. Normal [facility] 36 Left message for Pts nurse to call me back. [facility] CNOVon 03-14-2025 CNOV Office Visit (PLWDMR ) GIVEN,ANMOL ARAUJO ([id number]) 1960 M Date Time Provider Department 03/14/25 1:50 PM MILAD GOODSON PLWDMR During your visit today, we recorded the following information about you: Temperature Pulse Respiration Blood pressure 98 degrees 84/minute 20/minute 107/70 Dawood Tiwari, LIBRADO 03/14/2025 2:54 PM Addendum Nursing Documentation Pertinent Medical History: paraplegia, MRSA, osteomyelitis, UTI, DM2, neuropathy, pyelonephritis, Wound Etiology according to patient: sacrum wound has had for four years per pt Patient arrived via: self in motorized wheelchair - patient is a [place] with multiple staff Home Care [facility]/Nursing [facility] Consent captured for debridement per (Provider) and good until Special Instructions (for example, patient stands at the bedside for exam/dressing): bed Anticoagulant Therapy: Eliquis Living Situation (ie... Apartment, house, FPC): sanctuary Who lives with patient: facility Who [...] BY PROVIDER: Anesthetic Used: N/A applied per clerical secretary # 1 AND 2 Other procedure: Specimen [...] order date DME: [employer] , PH: [phone] SPECIAL NEEDS: EFax orders [facility] [phone] Emotional support N/A OR set-up N/A Stoker Installation Mechanic N/A Incontinence needs N/A DISCHARGED in stable [...] be drawn PARI and results faxed to [facility] [phone] Stop smoking EDUCATION: The patient/family was instructed [...] been diagnosed with (more content not included)... [facility] 36on 03-13-2025 36 Still need disc with images. Will need to review with Dr. Grimm. [facility] 36 Is it OK to get Pt scheduled for surgery? Please advise. [facility] 37on 03-07-2025 37 Need images from [facility] on disc brought to office for review in order for patient to have ureteral stent treatment at [facility]. Patient prefers [facility]. CT abdomen/pelvis 02/16/25 XR abdomen 02/16/25 and 02/17/25 Planning for ESWL vs laser litho w stent exchange. [facility] Office Visiton 03-07-2025 Follow-up visit [id number] Anmol Reynolds 1960 M Date Provider Department Center 03/07/2025 60098-HFOYOTDYOANA SOLITARIO [facility] URO None No family history on file Level of Service:18737 NM OFFICE/OUTPATIENT ESTABLISHED MOD [facility] 30 MIN Reason for Visit and Comments: Nephrolithiasis [183634] Normal [facility] Progress Noteon 03-07-2025 Progress Note Yoana Altaf, RN DIABETES - PROPOSAL ENGINEER 03/07/2025 9:15 AM Urology Office Visit [facility] [address], [address] [facility] [id number] PATIENT NAME: Anmol Franco Given DATE OF [...] negative rods. Treated. Follow up outpatient with [facility] urology Patient is scheduled for surgery w Dr Maria on 03/20/25 however he prefers treatment at [facility] Will need images for surgery [...] 8. Details above. 9. Follow-up as indicated. Valet Parking Attendant: CECILIA Transcribe Date/Time: Feb 16 2025 10:02P Dictated by : CORBIN PERRY MD This examination was interpreted and the report reviewed and electronically signed by: CORBIN PERRY MD on Feb 16 2025 10:34PM EST Narrative * * *Final Report* * * DATE OF EXAM: Feb 16 2025 8:33PM [facility] 0530 - CT ABD/PEL W IVCON / [...] and sagittal (more content not included)... Normal [facility] Anion gap in Serum or Plasma Ordered By: Tab Dupont on 03-01-2025 Anion gap [Moles/Vol] 11 mmol/L 02-16 [facility] BUN/creatinine ratioOrdered By: Tab Dupont on 03-01-2025 Urea nitrogen/Creatinine [Mass ratio] 15.3 mg/mg 07-24 [facility] Basic Metabolic Profile (BMP )on 03-01-2025 BUN/CRE 15.3 RATIO Normal 07-24 [facility] Comment on above: Order Comment: 412-2 Performed By: #### L 500.2500, L100.0500 #### [facility] [address] [place], [address] Calcium [Mass/Vol] 8.5 mg/dL Normal 7.6-11.0 [facility] Comment on above: Order Comment: 412-2 Performed By: #### L 500.2500, L100.0500 #### [facility] [address] [place], [address] Chloride [Moles/Vol] 104 mmol/L Normal 98-[address] [facility] Comment on above: Order Comment: 412-2 Performed By: #### L 500.2500, L100.0500 #### [facility] [address] [place], [address] CO2 [Moles/Vol] 21.8 mmol/L Normal 21.0-32.0 [facility] Comment on above: Order Comment: 412-2 Performed By: #### L 500.2500, L100.0500 #### [facility] [address] [place], [address] Creatinine [Mass/Vol] 0.59 mg/dL Low 0.70-1.20 [facility] Comment on above: Order Comment: 412-2 Performed By: #### L 500.2500, L100.0500 #### [facility] [address] [place], [address] GAP 11 Normal 5-15 [facility] Comment on above: Order Comment: 412-2 Performed By: #### L 500.2500, L100.0500 #### [facility] [address] [place], [address] GFR/1.73 sq M.predicted among non-blacks MDRD (S/P/Bld) [Vol rate/Area] 109 mL/min/{1.73_m2} Normal >60 [facility] Comment on above: Order Comment: 412-2 Result Comment: mL/m in/1.73m2 CKD-EPI Creatinine Equation (2020) Performed By: #### L 500.2500, L100.0500 #### [facility] [address] [place], [address] Glucose [Mass/Vol] 146 mg/dL High 70-99 [facility] Comment on above: Order Comment: 412-2 Performed By: #### L 500.2500, L100.0500 #### [facility] [address] [place], [address] Potassium [Moles/Vol] 4.0 mmol/L Normal 3.3-5.1 [facility] Comment on above: Order Comment: 412-2 Performed By: #### L 500.2500, L100.0500 #### [facility] [address] [place], [address] Sodium [Moles/Vol] 136 mmol/L Normal 133-145 [facility] Comment on above: Order Comment: 412-2 Performed By: #### L 500.2500, L100.0500 #### [facility] [address] [place], [address] Urea nitrogen [Mass/Vol] 9 mg/dL Normal 4-19 [facility] Comment on above: Order Comment: 412-2 Performed By: #### L 500.2500, L100.0500 #### [facility] [address] [place], [address] CBC-Complete Blood Cnt No Di ffon 03-01-2025 Erythrocyte distribution width (RBC) [Ratio] 15.4 % High 11.6-14.6 [facility] Comment on above: Order Comment: 412-2 Performed By: #### L 500.2500, L100.0500 #### [facility] [address] [place], [address] Hematocrit (Bld) [Volume fraction] 41.2 % Normal 40-54 [facility] Comment on above: Order Comment: 412-2 Performed By: #### L 500.2500, L100.0500 #### [facility] [address] [place], [address] Hemoglobin (Bld) [Mass/Vol] 12.9 g/dL Low 13.0-16.5 [facility] Comment on above: Order Comment: 412-2 Performed By: #### L 500.2500, L100.0500 #### [facility] [address] [place], [address] MCH (RBC) [Entitic mass] 29.5 pg Normal 27.0-32.0 [facility] Comment on above: Order Comment: 412-2 Performed By: #### L 500.2500, L100.0500 #### [facility] [address] [place], [address] MCHC (RBC) [Mass/Vol] 31.3 g/dL Low 32-36 [facility] Comment on above: Order Comment: 412-2 Performed By: #### L 500.2500, L100.0500 #### [facility] [address] [place], [address] MCV (RBC) [Entitic vol] 94.3 fL High 80-94 [facility] Comment on above: Order Comment: 412-2 Performed By: #### L 500.2500, L100.0500 #### [facility] [address] [place], [address] Platelet mean volume (Bld) [Entitic vol] 11.6 fL Normal 6.2-12.0 [facility] Comment on above: Order Comment: 412-2 Performed By: #### L 500.2500, L100.0500 #### [facility] [address] [place], [address] Platelets (Bld) [#/Vol] 345 10*3/uL Normal 150-450 [facility] Comment on above: Order Comment: 412-2 Performed By: #### L 500.2500, L100.0500 #### [facility] [address] [place], [address] RBC (Bld) [#/Vol] 4.37 10*6/uL Low 4.6-6.2 [facility] Comment on above: Order Comment: 412-2 Performed By: #### L 500.2500, L100.0500 #### [facility] [address] [place], [address] RDW SD 52.4 fl High 35.1-43.9 [facility] Comment on above: Order Comment: 412-2 Performed By: #### L 500.2500, L100.0500 #### [facility] [address] [place], [address] WBC (Bld) [#/Vol] 7.6 10*3/uL Normal 4.4-11.0 [facility] Comment on above: Order Comment: 412-2 Performed By: #### L 500.2500, L100.0500 #### [facility] [address] [place], [address] Carbon dioxide, total [Moles /volume] in Central venous bloodOrdered By: Tab Dupont on 03-01-2025 CO2 [Moles/Vol] 21.8 mmol/L 21.0-32.0 [facility] Chloride assayOrdered By: Vinh Lehman on 03-01-2025 Chloride [Moles/Vol] 104 mmol/L 98-[address] [facility] Erythrocyte distribution wid th ratioOrdered By: Tab Dupont on 03-01-2025 Erythrocyte distribution width (RBC) [Ratio] 15.4 % High 11.6-14.6 [facility] Erythrocyte distribution wid th standard deviationOrdered By: Tab Dupont on 03-01-2025 Erythrocyte distribution width (RBC) [Ratio] 52.4 fl High 35.1-43.9 [facility] Glomerular filtration rate ( GFR) estimation/1.73 sq m using serum, plasma, or whole bOrdered By: Tab Dupont on 03-01-2025 GFR/1.73 sq M.predicted among non-blacks MDRD (S/P/Bld) [Vol rate/Area] 109 mL/min/{1.73_m2} >60 [facility] Comment on above: mL/min/1.73m2 CKD-EP I Creatinine Equation (2020) Hematocrit Auto (Bld) [Volum e fraction]Ordered By: Tab Dupont on 03-01-2025 Hematocrit (Bld) [Volume fraction] 41.2 % 40-54 [facility] Hemoglobin measurementOrdere d By: Tab Dupont on 03-01-2025 Hemoglobin (Bld) [Mass/Vol] 12.9 g/dL Low 13.0-16.5 [facility] MCV (mean corpuscular volume ) determinationOrdered By: Tab Dupont on 03-01-2025 MCV (RBC) [Entitic vol] 94.3 fL High 80-94 [facility] Mean corpuscular hemoglobin (MCH) determinationOrdered By: Tab Dupont on 03-01-2025 MCH (RBC) [Entitic mass] 29.5 pg 27.0-32.0 [facility] Mean corpuscular hemoglobin concentration (MCHC) determinationOrdered By: Tab Dupont on 03-01-2025 MCHC (RBC) [Mass/Vol] 31.3 g/dL Low 32-36 [facility] Mean platelet volume determi nationOrdered By: Tab Dupont on 03-01-2025 Platelet mean volume (Bld) [Entitic vol] 11.6 fL 6.2-12.0 [facility] Platelet countOrdered By: Vinh Lehman on 03-01-2025 Platelets (Bld) [#/Vol] 345 10*3/uL 150-450 [facility] Potassium measurement (mass/ volume)Ordered By: Tab Dupont on 03-01-2025 Potassium (Unsp spec) [Mass/Vol] 4.0 mmol/L 3.3-5.1 [facility] RBC Auto (Bld) [#/Vol]Ordere d By: Tab Dupont on 03-01-2025 RBC (Bld) [#/Vol] 4.37 10*6/uL Low 4.6-6.2 [facility] Serum creatinine measurement (mass/volume)Ordered By: Tab Dupont on 03-01-2025 Creatinine [Mass/Vol] 0.59 mg/dL Low 0.70-1.20 [facility] Serum glucose measurement (m ass/volume)Ordered By: Tab Dupont on 03-01-2025 Glucose [Mass/Vol] 146 mg/dL High 70-99 [facility] Serum or plasma calcium randall urement (mass/volume)Ordered By: Tab Dupont on 03-01-2025 Calcium [Mass/Vol] 8.5 mg/dL 7.6-11.0 [facility] Serum or plasma urea nitroge n measurement (mass/volume)Ordered By: Tab Dupont on 03-01-2025 Urea nitrogen [Mass/Vol] 9 mg/dL 4-19 [facility] Sodium levelOrdered By: Omar Dupont on 03-01-2025 Sodium [Moles/Vol] 136 mmol/L 133-145 [facility] White blood cell (WBC) count Ordered By: Tab Dupont on 03-01-2025 WBC (Bld) [#/Vol] 7.6 10*3/uL 4.4-11.0 [facility] CBC panel Auto (Bld)on 02-22 Erythrocyte distribution width (RBC) [Ratio] 14.8 % Normal 11.5-15.0 [facility] Comment on above: Order Comment: Speci men Type: BLOOD SPECIMENOrdering Facility: [facility] Address: [address] [place] [address] Performed By: #### 5 8410-2 ####[facility] LABORATORYCLIA [id number] [address] [place] Hematocrit (Bld) [Volume fraction] 33.6 % Low 39.0-51.0 [facility] Comment on above: Order Comment: Speci men Type: BLOOD SPECIMENOrdering Facility: [facility] Address: [address] [place] [address] Performed By: #### 5 8410-2 ####[facility]ORATORYCLIA [id number] [address] [place] Hemoglobin (Bld) [Mass/Vol] 10.6 g/dL Low 13.0-17.0 [facility] Comment on above: Order Comment: Speci men Type: BLOOD SPECIMENOrdering Facility: [facility] Address: [address] [place] [address] Performed By: #### 5 8410-2 ####[facility]ORATORYCLIA [id number] [address] MCH (RBC) [Entitic mass] 30.0 pg Normal 26.0-34.0 [facility] Comment on above: Order Comment: Speci men Type: BLOOD SPECIMENOrdering Facility: [facility] Address: [address] [place] [address] Performed By: #### 5 8410-2 ####[facility]ORATORYCLIA [id number] [address] MCHC (RBC) [Mass/Vol] 31.5 g/dL Normal 30.5-36.0 [facility] Comment on above: Order Comment: Speci men Type: BLOOD SPECIMENOrdering Facility: [facility] Address: [address] [place] [address] Performed By: #### 5 8410-2 ####[facility]ORATORYCLIA [id number] [address] MCV (RBC) [Entitic vol] 95.2 fL Normal 80.0-100.0 [facility] Comment on above: Order Comment: Speci men Type: BLOOD SPECIMENOrdering Facility: [facility] Address: [address] [place] [address] Performed By: #### 5 8410-2 ####[facility]ORATORYCLIA [id number] [address] Nucleated RBC (Bld) [#/Vol] 10*3/uL Normal <0.01 [facility] Comment on above: Order Comment: Speci men Type: BLOOD SPECIMENOrdering Facility: [facility] Address: [address] [place] [address] Performed By: #### 5 8410-2 ####[facility]ORATORYCLIA [id number] [address] Platelet mean volume (Bld) [Entitic vol] 11.5 fL Normal 9.0-12.7 [facility] Comment on above: Order Comment: Speci men Type: BLOOD SPECIMENOrdering Facility: [facility] Address: [address] [place] [address] Performed By: #### 5 8410-2 ####[facility]ORATORYCLIA [id number] [place] [id number] [facility] Platelets (Bld) [#/Vol] 153 10*3/uL Normal 150-400 [facility] Comment on above: Order Comment: Speci men Type: BLOOD SPECIMENOrdering Facility: [facility] Address: [address] [place] [address] Performed By: #### 5 8410-2 ####[facility]ATORYCLIA [id number] [address] RBC (Bld) [#/Vol] 3.53 10*6/uL Low 4.20-6.00 [facility] Comment on above: Order Comment: Speci men Type: BLOOD SPECIMENOrdering Facility: [facility] Address: [address] [place] [address] Performed By: #### 5 8410-2 ####[facility]ATORYCLIA [id number] [address] WBC (Bld) [#/Vol] 9.23 10*3/uL Normal 3.70-11.00 [facility] Comment on above: Order Comment: Speci men Type: BLOOD SPECIMENOrdering Facility: [facility] Address: [address] [place] [address] Performed By: #### 5 8410-2 ####[facility] LABORATORYCLIA [id number] [address] CNDSon 02-22-2025 [facility]DS HNO ID: [id number] Author: CHUY PADILLA DO Service: Hospital Medicine [...] 2024. The patient initially presented to the [facility] ED on February 16, 2025 after being found unresponsive at his SNF and was unable to protect his airway. Patient was intubated, started on Levophed and admitted to MICU for acute hypoxemic respiratory failure. CT showed hydronephrosis and culture was remarkable for gram-negative rods. patient was started on meropenem per Infectious disease recommendations. urology was consulted and recommended to follow-up with the [facility] urology. patient was extubated on 02/17, [...] No pending results Discharge Disposition Discharge Disposition: [facility]pc Facility - Less than 30 Days Activity [...] call for appointment?: Yes Gayle Scott MD [phone] [address] [facility] [address] [facility] [address] PCP Requested Referral Additional Provider to Provider Information: Treatment Team: Attending Provider: Chuy Padilla DO Consulting: Charlie Williamson MD Primary Service: [facility] Problems Diagnosis POA Septic shock (HCC) Yes Proteus mirabilis infection Unknown Pressure injury of left buttock, unstageable (HCC) Unknown Gram negative septicemia (HCC) Unknown Bacteremia due to Enterococcus Unknown Fever, unspecified Unknown Leukocytosis Unknown Altered mental status Unknown Paraplegia (HCC) Unknown Proctocolitis Unknown Encounter for long-term (current) us (more content not included)... Normal [facility] Comprehensive metabolic 2000 panelon 02-22-2025 Albumin [Mass/Vol] 2.2 g/dL Low 3.9-4.9 [facility] Comment on above: Order Comment: Speci men Type: BLOOD SPECIMENOrdering Facility: [facility] Address: [address] [place], [place] [address] [address] Performed By: #### 2 4323-8 ####[facility]ORATORYCLIA [id number] [address] [place] ALP [Catalytic activity/Vol] 89 U/L Normal 38-113 [facility] Comment on above: Order Comment: Speci men Type: BLOOD SPECIMENOrdering Facility: [facility] Address: [address] [place] [address] Performed By: #### 2 4323-8 ####[facility]ORATORYCLIA [id number] [address] [place] ALT With P-5'-P [Catalytic activity/Vol] 12 U/L Normal 10-54 [facility] Comment on above: Order Comment: Speci men Type: BLOOD SPECIMENOrdering Facility: [facility] Address: [address] [place] [address] Performed By: #### 2 4323-8 ####[facility]ORATORYCLIA [id number] [address] [facility] Anion gap [Moles/Vol] 8 mmol/L Normal 8-15 [facility] Comment on above: Order Comment: Speci men Type: BLOOD SPECIMENOrdering Facility: [facility] Address: [address] [place] [address] Performed By: #### 2 4323-8 ####[facility]ORATORYCLIA [id number] [address] [place] AST With P-5'-P [Catalytic activity/Vol] 13 U/L Low 14-40 [facility] Comment on above: Order Comment: Speci men Type: BLOOD SPECIMENOrdering Facility: [facility] Address: [address] [place] [address] Performed By: #### 2 4323-8 ####[facility]ORATORYCLIA [id number] [address] [place] Bilirubin [Mass/Vol] 0.4 mg/dL Normal 0.2-1.3 [facility] Comment on above: Order Comment: Speci men Type: BLOOD SPECIMENOrdering Facility: [facility] Address: [address] [place] [address] Performed By: #### 2 4323-8 ####[facility]ORATORYCLIA [id number] [place] [address] [place] Calcium [Mass/Vol] 7.7 mg/dL Low 8.5-10.2 [facility] Comment on above: Order Comment: Speci men Type: BLOOD SPECIMENOrdering Facility: [facility] Address: [address] [place] [address] Performed By: #### 2 4323-8 ####[facility]ORATORYCLIA [id number] [place] [address] [place] Chloride [Moles/Vol] 108 mmol/L High 98-107 [facility] Comment on above: Order Comment: Speci men Type: BLOOD SPECIMENOrdering Facility: [facility] Address: [address] [place] [address] Performed By: #### 2 4323-8 ####[facility]ORATORYCLIA [id number] [place] [address] [place] CO2 [Moles/Vol] 23 mmol/L Normal 22-30 [facility] Comment on above: Order Comment: Speci men Type: BLOOD SPECIMENOrdering Facility: [facility] Address: [address] [place] [address] Performed By: #### 2 4323-8 ####[facility]ORATORYCLIA [id number] [place] [address] [place] Creatinine [Mass/Vol] 0.60 mg/dL Low 0.73-1.22 [facility] Comment on above: Order Comment: Speci men Type: BLOOD SPECIMENOrdering Facility: [facility] Address: [address] [place] [address] Performed By: #### 2 4323-8 ####[facility]ORATORYCLIA [id number] [place] [address] [place] Creatinine and Glomerular filtration rate.predicted panel (S/P/Bld) 108 mL/min/1.73m??? Normal >=60 [facility] Comment on above: Order Comment: Jg valdez Type: BLOOD SPECIMENOrdering Facility: [facility] Address: [address] [place] [address] Result Comment: Leena mated Glomerular Filtration Rate [...] Performed By: #### 2 4323-8 ####[facility]ORATORYCLIA [id number] [place] [address] [place] Glucose [Mass/Vol] 144 mg/dL High 74-99 [facility] Comment on above: Order Comment: Jg valdez Type: BLOOD SPECIMENOrdering Facility: [facility] Address: [address] [place] [address] Result Comment: The [place] [employer] (ADA) provides guidance for cutoff [...] Standards of Medical Care in Diabetes 2016, [place] [employer]. Diabetes Care. 2016.39(Suppl 1). Performed By: #### 2 4323-8 ####[facility]ORATORYCLIA [id number] [place] [address] [place] Potassium [Moles/Vol] 3.9 mmol/L Normal 3.7-5.1 [facility] Comment on above: Order Comment: Jg valdez Type: BLOOD SPECIMENOrdering Facility: [facility] Address: [address] [place] [address] Performed By: #### 2 4323-8 ####[facility]ORATORYCLIA [id number] [place] [address] [place] Protein [Mass/Vol] 5.7 g/dL Low 6.3-8.0 [facility] Comment on above: Order Comment: Speci men Type: BLOOD SPECIMENOrdering Facility: [facility] Address: [address] [place] [address] Performed By: #### 2 4323-8 ####[facility]ORATORYCLIA [id number] [place] [id number] [place] Sodium [Moles/Vol] 139 mmol/L Normal 136-144 [facility] Comment on above: Order Comment: Speci men Type: BLOOD SPECIMENOrdering Facility: [facility] Address: [address] [place] [address] Performed By: #### 2 4323-8 ####[facility]ORATORYCLIA [id number] [place] [address] [place] Urea nitrogen [Mass/Vol] 14 mg/dL Normal 9-24 [facility] Comment on above: Order Comment: Speci men Type: BLOOD SPECIMENOrdering Facility: [facility] HOSPITAL Address: [address] [place] [address] Performed By: #### 2 4323-8 ####[facility] LABORATORYCLIA [id number] [place] [id number] [place] NURSING PROGon 02-22-2025 NURSING PROG HNO ID: [id number] Author: NAHUN GUNDERSON, LIBRADO Service: Nursing Author Type: Registered Nurse Type: Nursing Progress Note Filed: 02/22/2025 19:58 Note Text: Call to ALEXANDRA Adams at [facility] for report. Follow up appts AND new medications reviewed. Normal [facility] THERAPY NTon 02-22-2025 THERAPY NT HNO ID: [id number] Author: VICTORIANO BACA, OTR/L Service: Occupational Therapy Author Type: Occupational Therapist Type: Therapy (PT/OT/Speech/Resp) Filed: 02/22/2025 15:00 Note Text: Occupational Therapy Evaluation Summary SERVICE DATE: 02/22/2025 SERVICE TIME: 1345 to 1403 ROOM: [place] [address] OT 6 Clicks Score: 16 DISCHARGE RECOMMENDATIONS [...] shock was managed in ICU; transferred to [facility] 02/20 Relevant Past Medical History: back injury and surgery in the past--then found to have epidural abscess--had another back sx in 2021--harware needed removed in January 2022 and then was paraplegic; has had issues with UTIs HOME LIVING Patient Lives With: Facility Care ([facility]) Assistance Available: 24-Hour Tub/Shower Type: sponge bath [...] Time (minutes): 18 $ Evaluation - Low (29194) Billed Units: 1 unit TRAINING AND EDUCATION [...] needs SIGNATURE: SCHUYLER Mares/Mina PATIENT NAME: Anmol Reynolds DATE: February 22, 2025 TIME: 2:58 PM Normal [facility] THERAPY NT HNO ID: [id number] Author: FABRICIO GREENBERG PT Service: Physical Therapy Author Type: Physical Therapist Type: Therapy (PT/OT/Speech/Resp) Filed: 02/22/2025 11:54 Note Text: Physical Therapy Evaluation Summary SERVICE DATE: 02/22/2025 SERVICE TIME: 1120 to 1135 ROOM: [place] [address] PT 6 Clicks Score: 7 DISCHARGE RECOMMENDATIONS ECF ASSESSMENT Response to Therapy Interventions: Multiple Ongoing Medical Issues pt tolerated bilat LE PROM--no c/o pain; able to complete roll with assist from PT with drawhseet PRECAUTIONS Fall Risk, Lines/Tubes/Drains CURRENT HOSPITAL COURSE presented to ED after being found unresponsive--septic shock was managed in ICU; transferred to [facility] 02/20 Relevant Past Medical History: back injury and surgery in the past--then found to have epidural abscess--had another back sx in 2021--harware needed removed in January 2022 and then was paraplegic; has had issues with UTIs HOME LIVING Patient Lives With: Facility Care ([facility]) Assistance Available: 24-Hour Equipment Owned: Wheelchair- Power [...] Skilled Treatment Time (minutes): 15 $ Evaluation-Moderate (11030) Billed Units: 1 unit Completed PROM bilat [...] February 22, 2025 TIME: 11:53 AM Normal [facility] CBC panel Auto (Bld)on 02-21 Erythrocyte distribution width (RBC) [Ratio] 14.9 % Normal 11.5-15.0 [facility] Comment on above: Order Comment: Speci men Type: BLOOD SPECIMENOrdering Facility: [facility] Address: [address] [place] [address] Performed By: #### 5 8410-2 ####[facility] LABORATORYCLIA [id number] [place] [address] [place] Hematocrit (Bld) [Volume fraction] 38.6 % Low 39.0-51.0 [facility] Comment on above: Order Comment: Speci men Type: BLOOD SPECIMENOrdering Facility: [facility] Address: [address] [place] [address] Performed By: #### 5 8410-2 ####[facility] LABORATORYCLIA [id number] [place] [address] [place] Hemoglobin (Bld) [Mass/Vol] 12.3 g/dL Low 13.0-17.0 [facility] Comment on above: Order Comment: Speci men Type: BLOOD SPECIMENOrdering Facility: [facility] Address: [address] [place] [address] Performed By: #### 5 8410-2 ####[facility] LABORATORYCLIA [id number] [address] MCH (RBC) [Entitic mass] 29.9 pg Normal 26.0-34.0 [facility] Comment on above: Order Comment: Speci men Type: BLOOD SPECIMENOrdering Facility: [facility] Address: [address] [place] [address] Performed By: #### 5 8410-2 ####[facility] LABORATORYCLIA [id number] [address] MCHC (RBC) [Mass/Vol] 31.9 g/dL Normal 30.5-36.0 [facility] Comment on above: Order Comment: Speci men Type: BLOOD SPECIMENOrdering Facility: [facility] Address: [address] [place] [address] Performed By: #### 5 8410-2 ####[facility] LABORATORYCLIA [id number] [address] MCV (RBC) [Entitic vol] 93.7 fL Normal 80.0-100.0 [facility] Comment on above: Order Comment: Speci men Type: BLOOD SPECIMENOrdering Facility: [facility] Address: [address] [place] [address] Performed By: #### 5 8410-2 ####[facility] LABORATORYCLIA [id number] [address] Nucleated RBC (Bld) [#/Vol] 10*3/uL Normal <0.01 [facility] Comment on above: Order Comment: Speci men Type: BLOOD SPECIMENOrdering Facility: [facility] Address: [address] [place] [address] Performed By: #### 5 8410-2 ####[facility] LABORATORYCLIA [id number] [address] Platelet mean volume (Bld) [Entitic vol] 11.7 fL Normal 9.0-12.7 [facility] Comment on above: Order Comment: Speci men Type: BLOOD SPECIMENOrdering Facility: [facility] Address: [address] [place] [address] Performed By: #### 5 8410-2 ####[facility]ORATORYCLIA [id number] [address] Platelets (Bld) [#/Vol] 134 10*3/uL Low 150-400 [facility] Comment on above: Order Comment: Speci men Type: BLOOD SPECIMENOrdering Facility: [facility] Address: [address] [place] [address] Result Comment: No c lot detected. Performed By: #### 5 8410-2 ####[facility]ORATORYCLIA [id number] [address] RBC (Bld) [#/Vol] 4.12 10*6/uL Low 4.20-6.00 [facility] Comment on above: Order Comment: Speci men Type: BLOOD SPECIMENOrdering Facility: [facility] Address: [address] [place] [address] Performed By: #### 5 8410-2 ####[facility] LABORATORYCLIA [id number] [address] WBC (Bld) [#/Vol] 9.99 10*3/uL Normal 3.70-11.00 [facility] Comment on above: Order Comment: Speci men Type: BLOOD SPECIMENOrdering Facility: [facility] Address: [address] [place] [address] Performed By: #### 5 8410-2 ####[facility] LABORATORYCLIA [id number] [address] CONSULT PROGon 02-21-2025 CONSULT PROG HNO ID: [id number] Author: ERIKA TEE APRN.PROPOSAL ENGINEER Service: Infectious Disease Author Type: Nurse Practitioner Type: Consult Progress Note Filed: 02/21/2025 15:32 Note Text: Summary: ID signing off PROGRESS NOTE INFECTIOUS DISEASE BRIEF SUMMARY: 64-year-old male past medical history chronic Santana catheter urinary retention/neurogenic bladder, paraplegia due to epidural abscess, diabetes mellitus type 2, bilateral hydronephrosis s/p ureteral stent placement in April 2024 presented to [facility] 02/16/2025 after being found unresponsive at [facility]. Urine and blood cultures with growth of [...] 0.5 g, NASAL, 2 TIMES DAILY 02/22/25 0867 Immunosuppressant: Midodrine Objective Medications: Current Facility-Administered Medications [...] Drains, and Airways Line Duration Peripheral 02/16/251922 [facility] Short Left Antecubital 18 Gauge 4 days Drain Duration Indwelling Urinary Catheter 02/16/252125 [facility] Coude 20 Fr 4 days Physical Exam: [...] 09/04/2021 7.18 (more content not included)... Normal [facility] Comprehensive metabolic 2000 panelon 02-21-2025 Albumin [Mass/Vol] 2.5 g/dL Low 3.9-4.9 [facility] Comment on above: Order Comment: Speci men Type: BLOOD SPECIMENOrdering Facility: [facility] Address: [address] [place] [address] Performed By: #### 2 4323-8 ####[facility] LABORATORYCLIA [id number] [place] [address] [place] ALP [Catalytic activity/Vol] 121 U/L High 38-113 [facility] Comment on above: Order Comment: Speci men Type: BLOOD SPECIMENOrdering Facility: [facility] Address: [address] [place] [address] Performed By: #### 2 4323-8 ####[facility]ORATORYCLIA [id number] [address] [place] ALT With P-5'-P [Catalytic activity/Vol] 15 U/L Normal 10-54 [facility] Comment on above: Order Comment: Speci men Type: BLOOD SPECIMENOrdering Facility: [facility] Address: [address] [place] [address] Performed By: #### 2 4323-8 ####[facility] LABORATORYCLIA [id number] [address] [place] Anion gap [Moles/Vol] 9 mmol/L Normal 8-15 [facility] Comment on above: Order Comment: Speci men Type: BLOOD SPECIMENOrdering Facility: [facility] Address: [address] [place] [address] Performed By: #### 2 4323-8 ####[facility] LABORATORYCLIA [id number] [address] [facility] AST With P-5'-P [Catalytic activity/Vol] 23 U/L Normal 14-40 [facility] Comment on above: Order Comment: Speci men Type: BLOOD SPECIMENOrdering Facility: [facility] Address: [address] [place] [address] Performed By: #### 2 4323-8 ####[facility] LABORATORYCLIA [id number] [address] [place] Bilirubin [Mass/Vol] 0.8 mg/dL Normal 0.2-1.3 [facility] Comment on above: Order Comment: Speci men Type: BLOOD SPECIMENOrdering Facility: [facility] Address: [address] [place] [address] Performed By: #### 2 4323-8 ####[facility]ORATORYCLIA [id number] [place] [address] [place] Calcium [Mass/Vol] 8.2 mg/dL Low 8.5-10.2 [facility] Comment on above: Order Comment: Speci men Type: BLOOD SPECIMENOrdering Facility: [facility] Address: [address] [place] [address] Performed By: #### 2 4323-8 ####[facility] LABORATORYCLIA [id number] [place] [address] [place] Chloride [Moles/Vol] 105 mmol/L Normal 98-107 [facility] Comment on above: Order Comment: Speci men Type: BLOOD SPECIMENOrdering Facility: [facility] Address: [address] [place] [address] Performed By: #### 2 4323-8 ####[facility] LABORATORYCLIA [id number] [place] [address] [place] CO2 [Moles/Vol] 21 mmol/L Low 22-30 [facility] Comment on above: Order Comment: Speci men Type: BLOOD SPECIMENOrdering Facility: [facility] Address: [address] [place] [address] Performed By: #### 2 4323-8 ####[facility]ORATORYCLIA [id number] [place] [address] [place] Creatinine [Mass/Vol] 0.58 mg/dL Low 0.73-1.22 [facility] Comment on above: Order Comment: Speci men Type: BLOOD SPECIMENOrdering Facility: [facility] Address: [address] [place] [address] Performed By: #### 2 4323-8 ####[facility] LABORATORYCLIA [id number] [address] [place] Creatinine and Glomerular filtration rate.predicted panel (S/P/Bld) 110 mL/min/1.73m??? Normal >=60 [facility] Comment on above: Order Comment: Speci men Type: BLOOD SPECIMENOrdering Facility: [facility] Address: [address] [place] [address] Result Comment: Leena mated Glomerular Filtration Rate [...] Performed By: #### 2 4323-8 ####[facility] LABORATORYCLIA [id number] [place] [address] [place] Glucose [Mass/Vol] 162 mg/dL High 74-99 [facility] Comment on above: Order Comment: Jg valdez Type: BLOOD SPECIMENOrdering Facility: [facility] Address: [address] [place] [address] Result Comment: The [place] Diabetes Association (ADA) provides guidance for cutoff [...] Standards of Medical Care in Diabetes 2016, [place] [employer]. Diabetes Care. 2016.39(Suppl 1). Performed By: #### 2 4323-8 ####[facility] LABORATORYCLIA [id number] [place] [address] [place] Potassium [Moles/Vol] 4.1 mmol/L Normal 3.7-5.1 [facility] Comment on above: Order Comment: Jg valdez Type: BLOOD SPECIMENOrdering Facility: [facility] Address: [address] [place] [id number] Performed By: #### 2 4323-8 ####[facility] LABORATORYCLIA [id number] [place] [address] [place] Protein [Mass/Vol] 6.6 g/dL Normal 6.3-8.0 [facility] Comment on above: Order Comment: Speci men Type: BLOOD SPECIMENOrdering Facility: [facility] Address: [address] [place] [address] Performed By: #### 2 4323-8 ####[facility] LABORATORYCLIA [id number] [address] [place] Sodium [Moles/Vol] 135 mmol/L Low 136-144 [facility] Comment on above: Order Comment: Speci men Type: BLOOD SPECIMENOrdering Facility: [facility] Address: [address] [place] [address] Performed By: #### 2 4323-8 ####[facility]ORATORYCLIA [id number] [place] [address] [place] Urea nitrogen [Mass/Vol] 21 mg/dL Normal 9-24 [facility] Comment on above: Order Comment: Speci men Type: BLOOD SPECIMENOrdering Facility: [facility] Address: [address] [place] [address] Performed By: #### 2 4323-8 ####[facility]ORATORYCLIA [id number] [place] [address] [place] Comprehensive metabolic 2000 panelon 02-20-2025 Albumin [Mass/Vol] 2.3 g/dL Low 3.9-4.9 [facility] Comment on above: Order Comment: Speci men Type: BLOOD SPECIMENOrdering Facility: [facility] Address: [address] [place] [address] Performed By: #### 2 4323-8 ####[facility] LABORATORYCLIA [id number] [address] [place] ALP [Catalytic activity/Vol] 107 U/L Normal 38-113 [facility] Comment on above: Order Comment: Speci men Type: BLOOD SPECIMENOrdering Facility: [facility] Address: [address] [place] [address] Performed By: #### 2 4323-8 ####[facility]ORATORYCLIA [id number] [place] [address] [place] ALT With P-5'-P [Catalytic activity/Vol] 17 U/L Normal 10-54 [facility] Comment on above: Order Comment: Speci men Type: BLOOD SPECIMENOrdering Facility: [facility] Address: [address] [place] [address] Performed By: #### 2 4323-8 ####[facility] LABORATORYCLIA [id number] [place] [address] [place] Anion gap [Moles/Vol] 8 mmol/L Normal 8-15 [facility] Comment on above: Order Comment: Speci men Type: BLOOD SPECIMENOrdering Facility: [facility] Address: [address] [place] [address] Performed By: #### 2 4323-8 ####[facility]ORATORYCLIA [id number] [address] [place] AST With P-5'-P [Catalytic activity/Vol] 22 U/L Normal 14-40 [facility] Comment on above: Order Comment: Speci men Type: BLOOD SPECIMENOrdering Facility: [facility] Address: [address] [place] [address] Performed By: #### 2 4323-8 ####[facility]ORATORYCLIA [id number] [address] [place] Bilirubin [Mass/Vol] 0.8 mg/dL Normal 0.2-1.3 [facility] Comment on above: Order Comment: Speci men Type: BLOOD SPECIMENOrdering Facility: [facility] Address: [address] [place] [address] Performed By: #### 2 4323-8 ####[facility]ORATORYCLIA [id number] [address] [facility] Calcium [Mass/Vol] 7.7 mg/dL Low 8.5-10.2 [facility] Comment on above: Order Comment: Speci men Type: BLOOD SPECIMENOrdering Facility: [facility] Address: [address] [place] [address] Performed By: #### 2 4323-8 ####[facility]ORATORYCLIA [id number] [place] [address] [place] Chloride [Moles/Vol] 110 mmol/L High 98-107 [facility] Comment on above: Order Comment: Speci men Type: BLOOD SPECIMENOrdering Facility: [facility] Address: [address] [place] [address] Performed By: #### 2 4323-8 ####[facility]ORATORYCLIA [id number] [address] [place] CO2 [Moles/Vol] 23 mmol/L Normal 22-30 [facility] Comment on above: Order Comment: Speci men Type: BLOOD SPECIMENOrdering Facility: [facility] Address: [address] [place] [address] Performed By: #### 2 4323-8 ####[facility]ORATORYCLIA [id number] [address] [facility] Creatinine [Mass/Vol] 0.60 mg/dL Low 0.73-1.22 [facility] Comment on above: Order Comment: Speci men Type: BLOOD SPECIMENOrdering Facility: [facility] Address: [address] [place] [address] Performed By: #### 2 4323-8 ####[facility]ORATORYCLIA [id number] [address] Creatinine and Glomerular filtration rate.predicted panel (S/P/Bld) 108 mL/min/1.73m??? Normal >=60 [facility] Comment on above: Order Comment: Speci men Type: BLOOD SPECIMENOrdering Facility: [facility] Address: [address] [place] [address] Result Comment: Leena mated Glomerular Filtration Rate [...] Performed By: #### 2 4323-8 ####[facility]ORATORYCLIA [id number] [place] [address] [place] Glucose [Mass/Vol] 90 mg/dL Normal 74-99 [facility] Comment on above: Order Comment: [place] courtney Type: BLOOD SPECIMENOrdering Facility: [facility] Address: [address] [place] [address] Result Comment: The [place] Diabetes Association (ADA) provides guidance for cutoff [...] Standards of Medical Care in Diabetes 2016, [place] [employer]. Diabetes Care. 2016.39(Suppl 1). Performed By: #### 2 4323-8 ####[facility]ORATORYCLIA [id number] [place] [address] [place] Potassium [Moles/Vol] 4.1 mmol/L Normal 3.7-5.1 [facility] Comment on above: Order Comment: Jg courtney Type: BLOOD SPECIMENOrdering Facility: [facility] Address: [address] [place] [address] Performed By: #### 2 4323-8 ####[facility]ORATORYCLIA [id number] [place] [id number] [place] Protein [Mass/Vol] 5.7 g/dL Low 6.3-8.0 [facility] Comment on above: Order Comment: Jg courtney Type: BLOOD SPECIMENOrdering Facility: [facility] Address: [address] [place] [id number] Performed By: #### 2 4323-8 ####[facility]ORATORYCLIA [id number] [address] STATES [facility] Sodium [Moles/Vol] 141 mmol/L Normal 136-144 [facility] Comment on above: Order Comment: Speci men Type: BLOOD SPECIMENOrdering Facility: [facility] Address: [address] [place] [address] Performed By: #### 2 4323-8 ####[facility]ATORYCLIA [id number] [address] [place] Urea nitrogen [Mass/Vol] 25 mg/dL High 9-24 [facility] Comment on above: Order Comment: Speci men Type: BLOOD SPECIMENOrdering Facility: [facility] Address: [address] [place] [address] Performed By: #### 2 4323-8 ####[facility]ORATORYCLIA [id number] [address] [facility] CBC panel Auto (Bld)on 02-19 Erythrocyte distribution width (RBC) [Ratio] 14.8 % Normal 11.5-15.0 [facility] Comment on above: Order Comment: Speci men Type: BLOOD SPECIMENOrdering Facility: [facility] Address: [address] [place] [address] Performed By: #### 5 8410-2 ####[facility]ORATORYCLIA [id number] [address] [place] Hematocrit (Bld) [Volume fraction] 32.5 % Low 39.0-51.0 [facility] Comment on above: Order Comment: Speci men Type: BLOOD SPECIMENOrdering Facility: [facility] Address: [address] [place] [address] Performed By: #### 5 8410-2 ####[facility]ORATORYCLIA [id number] [address] [facility] Hemoglobin (Bld) [Mass/Vol] 11.1 g/dL Low 13.0-17.0 [facility] Comment on above: Order Comment: Speci men Type: BLOOD SPECIMENOrdering Facility: [facility] Address: [address] [place] [address] Performed By: #### 5 8410-2 ####[facility]ORATORYCLIA [id number] [address] MCH (RBC) [Entitic mass] 30.5 pg Normal 26.0-34.0 [facility] Comment on above: Order Comment: Speci men Type: BLOOD SPECIMENOrdering Facility: [facility] Address: [address] [place] [address] Performed By: #### 5 8410-2 ####[facility]ATORYCLIA [id number] [address] MCHC (RBC) [Mass/Vol] 34.2 g/dL Normal 30.5-36.0 [facility] Comment on above: Order Comment: Speci men Type: BLOOD SPECIMENOrdering Facility: [facility] Address: [address] [place] [address] Performed By: #### 5 8410-2 ####[facility]ATORYCLIA [id number] [address] MCV (RBC) [Entitic vol] 89.3 fL Normal 80.0-100.0 [facility] Comment on above: Order Comment: Speci men Type: BLOOD SPECIMENOrdering Facility: [facility] Address: [address] [place] [address] Performed By: #### 5 8410-2 ####[facility]ATORYCLIA [id number] [address] Nucleated RBC (Bld) [#/Vol] 10*3/uL Normal <0.01 [facility] Comment on above: Order Comment: Speci men Type: BLOOD SPECIMENOrdering Facility: [facility] Address: [address] [place] [address] Performed By: #### 5 8410-2 ####[facility]ORYCLIA [id number] [address] Platelet mean volume (Bld) [Entitic vol] 11.8 fL Normal 9.0-12.7 [facility] Comment on above: Order Comment: Speci men Type: BLOOD SPECIMENOrdering Facility: [facility] Address: [address] [place] [address] Performed By: #### 5 8410-2 ####[facility]ATORYCLIA [id number] [address] [place] Platelets (Bld) [#/Vol] 87 10*3/uL Low 150-400 [facility] Comment on above: Order Comment: Speci men Type: BLOOD SPECIMENOrdering Facility: [facility] Address: [address] [place] [address] Result Comment: No c lot detected. Performed By: #### 5 8410-2 ####[facility]ITALCL[facility] [id number] [address] [facility] RBC (Bld) [#/Vol] 3.64 10*6/uL Low 4.20-6.00 [facility] Comment on above: Order Comment: Speci men Type: BLOOD SPECIMENOrdering Facility: [facility] Address: [address] [place] [address] Performed By: #### 5 8410-2 ####[facility] LABORATORYCLIA [id number] [address] WBC (Bld) [#/Vol] 9.94 10*3/uL Normal 3.70-11.00 [facility] Comment on above: Order Comment: Speci men Type: BLOOD SPECIMENOrdering Facility: [facility] Address: [address] [place] [address] Performed By: #### 5 8410-2 ####[facility] LABORATORYCLIA [id number] [address] Sahil 02-19-2025 SHANTANU Telephone (SEAN) ANMOL REYNOLDS ([id number]) 1960 M Date Time Provider Department 02/19/25 ANMOL HERBERT During your visit today, we recorded the following information about you: Anmol Herbert MD 02/19/2025 2:58 PM Signed Needs outpt cysto, pyelograms, bilateral stent change vs removal in 2-3 weeks. Comfort Sotelo 03/08/2025 10:16 AM Signed Patient is scheduled and [facility] was notified. Information was faxed. Comfort Sotelo [...] Of Date 02/19/2025 Noted Resolved NO SHOW [[id number]] 08/31/2013 05/29/2020 Perineal abscess [L02.215] 06/13/2019 05/29/2020 [...] status [R41.82 (more content not included)... Normal [facility] Calcium.ionized [Moles/Vol]o n 02-19-2025 Calcium.ionized (BldV) [Mass/Vol] 1.03 mmol/L Low 1.08-1.30 [facility] Comment on above: Order Comment: Speci men Type: BLOOD SPECIMENOrdering Facility: [facility] Address: [address] [place] [address] Performed By: #### 1 995-0 ####[facility] LABORATORYCLIA [id number] [address] Calcium.ionized adjusted to pH 7.4 (Bld) [Moles/Vol] 1.05 mmol/L Low 1.08-1.30 [facility] Comment on above: Order Comment: Speci men Type: BLOOD SPECIMENOrdering Facility: [facility] Address: [address] [place] [address] Performed By: #### 1 995-0 ####[facility] LABORATORYCLIA [id number] [address] [facility] Comprehensive metabolic 2000 panelon 02-19-2025 Albumin [Mass/Vol] 2.3 g/dL Low 3.9-4.9 [facility] Comment on above: Order Comment: Speci men Type: BLOOD SPECIMENOrdering Facility: [facility] Address: [address] [place] [address] Performed By: #### 2 4323-8 ####[facility]ORATORYCLIA [id number] [address] [facility] ALP [Catalytic activity/Vol] 112 U/L Normal 38-113 [facility] Comment on above: Order Comment: Speci men Type: BLOOD SPECIMENOrdering Facility: [facility] Address: [address] [place] [address] Performed By: #### 2 4323-8 ####[facility]ORATORYCLIA [id number] [address] ALT With P-5'-P [Catalytic activity/Vol] 21 U/L Normal 10-54 [facility] Comment on above: Order Comment: Speci men Type: BLOOD SPECIMENOrdering Facility: [facility] Address: [address] [place] [address] Performed By: #### 2 4323-8 ####[facility]ORATORYCLIA [id number] [place] [address] [place] Anion gap [Moles/Vol] 10 mmol/L Normal 8-15 [facility] Comment on above: Order Comment: Speci men Type: BLOOD SPECIMENOrdering Facility: [facility] Address: [address] [place] [address] Performed By: #### 2 4323-8 ####[facility]ORATORYCLIA [id number] [place] [address] [place] AST With P-5'-P [Catalytic activity/Vol] 25 U/L Normal 14-40 [facility] Comment on above: Order Comment: Speci men Type: BLOOD SPECIMENOrdering Facility: [facility] Address: [address] [place] [address] Performed By: #### 2 4323-8 ####[facility]ATORYCLIA [id number] [place] [address] [place] Bilirubin [Mass/Vol] 0.5 mg/dL Normal 0.2-1.3 [facility] Comment on above: Order Comment: Speci men Type: BLOOD SPECIMENOrdering Facility: [facility] Address: [address] [place] [address] Performed By: #### 2 4323-8 ####[facility]ATORYCLIA [id number] [place] [address] [place] Calcium [Mass/Vol] 7.8 mg/dL Low 8.5-10.2 [facility] Comment on above: Order Comment: Speci men Type: BLOOD SPECIMENOrdering Facility: [facility] Address: [address] [place] [address] Performed By: #### 2 4323-8 ####[facility] LABORATORYCLIA [id number] [place] [address] [place] Chloride [Moles/Vol] 106 mmol/L Normal 98-107 [facility] Comment on above: Order Comment: Speci men Type: BLOOD SPECIMENOrdering Facility: [facility] Address: [address] [place] [address] Performed By: #### 2 4323-8 ####[facility]ORATORYCLIA [id number] [place] [address] [place] CO2 [Moles/Vol] 21 mmol/L Low 22-30 [facility] Comment on above: Order Comment: Speci men Type: BLOOD SPECIMENOrdering Facility: [facility] Address: [address] [place] [address] Performed By: #### 2 4323-8 ####[facility]PITALCLIA [id number] [address] [place] Creatinine [Mass/Vol] 0.64 mg/dL Low 0.73-1.22 [facility] Comment on above: Order Comment: Speci men Type: BLOOD SPECIMENOrdering Facility: [facility] Address: [address] [place] [address] Performed By: #### 2 4323-8 ####[facility] HOSPITALCLIA [id number] [address] Creatinine and Glomerular filtration rate.predicted panel (S/P/Bld) 106 mL/min/1.73m??? Normal >=60 [facility] Comment on above: Order Comment: Speci men Type: BLOOD SPECIMENOrdering Facility: [facility] Address: [address] [place] [address] Result Comment: Leena mated Glomerular Filtration Rate [...] Performed By: #### 2 4323-8 ####[facility]ORATORYCLIA [id number] [address] [facility] Glucose [Mass/Vol] 115 mg/dL High 74-99 [facility] Comment on above: Order Comment: Speci men Type: BLOOD SPECIMENOrdering Facility: [facility] Address: [address] [place] [address] Result Comment: The [place] [employer] (ADA) provides guidance for cutoff [...] Standards of Medical Care in Diabetes 2016, [place] [employer]. Diabetes Care. 2016.39(Suppl 1). Performed By: #### 2 4323-8 ####[facility]ATORYCLIA [id number] [place] [address] [place] Potassium [Moles/Vol] 3.7 mmol/L Normal 3.7-5.1 [facility] Comment on above: Order Comment: [place] men Type: BLOOD SPECIMENOrdering Facility: [facility] Address: [address] [place] [address] Performed By: #### 2 4323-8 ####[facility]ORATORYCLIA [id number] [place] [address] [place] Protein [Mass/Vol] 5.5 g/dL Low 6.3-8.0 [facility] Comment on above: Order Comment: Speci men Type: BLOOD SPECIMENOrdering Facility: [facility] Address: [address] [place] [address] Performed By: #### 2 4323-8 ####[facility]ATORYCLIA [id number] [place] [address] [place] Sodium [Moles/Vol] 137 mmol/L Normal 136-144 [facility] Comment on above: Order Comment: Speci men Type: BLOOD SPECIMENOrdering Facility: [facility] Address: [address] [place] [address] Performed By: #### 2 4323-8 ####[facility]ORATORYCLIA [id number] [place] [address] [place] Urea nitrogen [Mass/Vol] 36 mg/dL High 9-24 [facility] Comment on above: Order Comment: Speci men Type: BLOOD SPECIMENOrdering Facility: [facility] Address: [address] [place] [address] Performed By: #### 2 4323-8 ####[facility]ORATORYCLIA [id number] [place] [address] [place] Urine Cultureon 02-19-2025 URC 412-25 Citrobacter freundii Nova Count 80,000-100,000 Providencia stuartii Providencia stuartii PMIR Nova Count >100,000 Proteus mirabilis Nova Count 25,000-50,000 Citrobacter freundii: REACTION Enterococcus faecalis [...] R Vancomycin Islt HARINDER 1 S Normal [facility] Comment on above: Performed By: #### L 100.0500, L500.4050, L501.6710, L101.9900 #### [facility] [address] [place], [place], [address] aPTT PPPon 02-19-2025 aPTT Coag (PPP) [Time] 68.5 s High 23.0-32.4 [facility] Comment on above: Order Comment: Speci men Type: BLOOD SPECIMENOrdering Facility: [facility] Address: [address] [place] [address] Performed By: #### 1 4979-9 ####[facility]PITALCLIA [id number] [address] aPTT Coag (PPP) [Time] 71.1 s High 23.0-32.4 [facility] Comment on above: Order Comment: Speci men Type: BLOOD SPECIMENOrdering Facility: [facility] Address: [address] [place] [address] Performed By: #### 1 4979-9 ####[facility]ORATORYCLIA [id number] [address] CBC panel Auto (Bld)on 02-18 Erythrocyte distribution width (RBC) [Ratio] 14.9 % Normal 11.5-15.0 [facility] Comment on above: Order Comment: Speci men Type: BLOOD SPECIMENOrdering Facility: [facility] Address: [address] [place] [address] Performed By: #### 5 8410-2 ####[facility]ATORYCLIA [id number] [address] Hematocrit (Bld) [Volume fraction] 33.9 % Low 39.0-51.0 [facility] Comment on above: Order Comment: Speci men Type: BLOOD SPECIMENOrdering Facility: [facility] Address: [address] [place] [address] Performed By: #### 5 8410-2 ####[facility]ATORYCLIA [id number] [address] [facility] Hemoglobin (Bld) [Mass/Vol] 11.3 g/dL Low 13.0-17.0 [facility] Comment on above: Order Comment: Speci men Type: BLOOD SPECIMENOrdering Facility: [facility] Address: [address] [place] [address] Performed By: #### 5 8410-2 ####[facility]ORATORYCLIA [id number] [address] MCH (RBC) [Entitic mass] 30.3 pg Normal 26.0-34.0 [facility] Comment on above: Order Comment: Speci men Type: BLOOD SPECIMENOrdering Facility: [facility] Address: [address] [place] [address] Performed By: #### 5 8410-2 ####[facility]ORATORYCLIA [id number] [address] [place] MCHC (RBC) [Mass/Vol] 33.3 g/dL Normal 30.5-36.0 [facility] Comment on above: Order Comment: Speci men Type: BLOOD SPECIMENOrdering Facility: [facility] Address: [address] [place] [address] Performed By: #### 5 8410-2 ####[facility]ORATORYCLIA [id number] [address] MCV (RBC) [Entitic vol] 90.9 fL Normal 80.0-100.0 [facility] Comment on above: Order Comment: Speci men Type: BLOOD SPECIMENOrdering Facility: [facility] Address: [address] [place] [address] Performed By: #### 5 8410-2 ####[facility]ATORYCLIA [id number] [address] [place] Nucleated RBC (Bld) [#/Vol] 10*3/uL Normal <0.01 [facility] Comment on above: Order Comment: Speci men Type: BLOOD SPECIMENOrdering Facility: [facility] Address: [address] [place] [address] Performed By: #### 5 8410-2 ####[facility]ORATORYCLIA [id number] [address] [place] Platelet mean volume (Bld) [Entitic vol] 11.9 fL Normal 9.0-12.7 [facility] Comment on above: Order Comment: Speci men Type: BLOOD SPECIMENOrdering Facility: [facility] Address: [address] [place] [address] Performed By: #### 5 8410-2 ####[facility]ATORYCLIA [id number] [address] [place] Platelets (Bld) [#/Vol] 69 10*3/uL Low 150-400 [facility] Comment on above: Order Comment: Speci men Type: BLOOD SPECIMENOrdering Facility: [facility] Address: [address] [place] [address] Result Comment: No c lot detected. Performed By: #### 5 8410-2 ####[facility]ATORYCLIA [id number] [address] [place] RBC (Bld) [#/Vol] 3.73 10*6/uL Low 4.20-6.00 [facility] Comment on above: Order Comment: Speci men Type: BLOOD SPECIMENOrdering Facility: [facility] Address: [address] [place] [address] Performed By: #### 5 8410-2 ####[facility]ATORYCLIA [id number] [address] [place] WBC (Bld) [#/Vol] 13.39 10*3/uL High 3.70-11.00 [facility] Comment on above: Order Comment: Speci men Type: BLOOD SPECIMENOrdering Facility: [facility] Address: [address] [place] [address] Performed By: #### 5 8410-2 ####[facility]ORATORYCLIA [id number] [place] [address] [place] [facility] CONSULT PROGon 02-18-2025 CONSULT PROG HNO ID: [id number] Author: TIMMY MARTINEZ RPh Service: Pharmacy Author [...] if there are questions. Timmy Martinez RPh [facility] CONSULT PROG HNO ID: [id number] Author: RADHA GRAHAM RPh Service: Pharmacy Author [...] any questions, please contact Radha Graham at [phone]. Estimated Creatinine Clearance: 86.2 mL/min (based on [...] Ht: 02/16/2025 180.3 cm (5' 11) Radha Graham, [facility] February 18, 2025 7:17 AM Normal [facility] Calcium.ionized [Moles/Vol]o n 02-18-2025 Calcium.ionized (BldV) [Mass/Vol] 1.07 mmol/L Low 1.08-1.30 [facility] Comment on above: Order Comment: Speci men Type: BLOOD SPECIMENOrdering Facility: [facility] Address: [address] [place] [address] Performed By: #### 1 995-0 ####[facility]ATORYCLIA [id number] [address] [facility] Calcium.ionized adjusted to pH 7.4 (Bld) [Moles/Vol] 1.07 mmol/L Low 1.08-1.30 [facility] Comment on above: Order Comment: Speci men Type: BLOOD SPECIMENOrdering Facility: [facility] Address: [address] [place] [address] Performed By: #### 1 995-0 ####[facility]ORATORYCLIA [id number] [place] [address] [place] Comprehensive metabolic 2000 panelon 02-18-2025 Albumin [Mass/Vol] 2.3 g/dL Low 3.9-4.9 [facility] Comment on above: Order Comment: Speci men Type: BLOOD SPECIMENOrdering Facility: [facility] Address: [address] [place] [id number] Performed By: #### 2 432-8, ####[facility]ORATORYCLIA [id number] [address] [place] ALP [Catalytic activity/Vol] 115 U/L High 38-113 [facility] Comment on above: Order Comment: Speci men Type: BLOOD SPECIMENOrdering Facility: [facility] Address: [address] [place] [address] Performed By: #### 2 8, ####[facility]ORATORYCLIA [id number] [place] [address] [place] ALT With P-5'-P [Catalytic activity/Vol] 25 U/L Normal 10-54 [facility] Comment on above: Order Comment: Speci men Type: BLOOD SPECIMENOrdering Facility: [facility] Address: [address] [place] [address] Performed By: #### 2 4323-05, ####[facility]ORATORYCLIA [id number] [address] [place] Anion gap [Moles/Vol] 11 mmol/L Normal 8-15 [facility] Comment on above: Order Comment: Speci men Type: BLOOD SPECIMENOrdering Facility: [facility] Address: [address] [place] [address] Performed By: #### 2 8, ####[facility]ATORYCLIA [id number] [place] [address] [place] AST With P-5'-P [Catalytic activity/Vol] 38 U/L Normal 14-40 [facility] Comment on above: Order Comment: Speci men Type: BLOOD SPECIMENOrdering Facility: [facility] Address: [address] [place] [address] Performed By: #### 2 432-8, ####[facility]ATORYCLIA [id number] [place] [address] [place] Bilirubin [Mass/Vol] 0.6 mg/dL Normal 0.2-1.3 [facility] Comment on above: Order Comment: Speci men Type: BLOOD SPECIMENOrdering Facility: [facility] Address: [address] [place], [place] [address] Performed By: #### 2 432-8, ####[facility]ATORYCLIA [id number] [place] [address] [place] Calcium [Mass/Vol] 7.8 mg/dL Low 8.5-10.2 [facility] Comment on above: Order Comment: Speci men Type: BLOOD SPECIMENOrdering Facility: [facility] Address: [address] [place] [address] Performed By: #### 2 8, ####[facility]ORYCLIA [id number] [place] [address] [place] Chloride [Moles/Vol] 104 mmol/L Normal 98-107 [facility] Comment on above: Order Comment: Speci men Type: BLOOD SPECIMENOrdering Facility: [facility] Address: [address] [place] [address] Performed By: #### 2 4323-05, ####[facility]ATORYCLIA [id number] [place] [address] [place] CO2 [Moles/Vol] 20 mmol/L Low 22-30 [facility] Comment on above: Order Comment: Speci men Type: BLOOD SPECIMENOrdering Facility: [facility] Address: [address] [place] [address] Performed By: #### 2 4322-8, ####[facility]ATORYCLIA [id number] [place] [address] [place] Creatinine [Mass/Vol] 1.04 mg/dL Normal 0.73-1.22 [facility] Comment on above: Order Comment: Speci men Type: BLOOD SPECIMENOrdering Facility: [facility] Address: [address] [place] [address] Performed By: #### 2 4322-8, 90397-4 ####[facility]ITALCLIA [id number] [place] [address] [place] [facility] Creatinine and Glomerular filtration rate.predicted panel (S/P/Bld) 81 mL/min/1.73m??? Normal >=60 [facility] Comment on above: Order Comment: Specliliana valdez Type: BLOOD SPECIMENOrdering Facility: [facility] Address: [address] [place] [address] Result Comment: Leena mated Glomerular Filtration Rate [...] actual GFR. Performed By: #### 2 4323-8, 11040-5 ####[facility] HOSPITALIA [id number] [place] [id number] [place] Glucose [Mass/Vol] 177 mg/dL High 74-99 [facility] Comment on above: Order Comment: Jg valdez Type: BLOOD SPECIMENOrdering Facility: [facility] Address: [address] [place] [address] Result Comment: The [place] Diabetes Association (ADA) provides guidance for cutoff [...] Standards of Medical Care in Diabetes 2016, [place] [employer]. Diabetes Care. 2016.39(Suppl 1). Performed By: #### 2 4323-8, 38033-4 ####[facility]ATORYCLIA [id number] [place] [address] [place] Potassium [Moles/Vol] 3.9 mmol/L Normal 3.7-5.1 [facility] Comment on above: Order Comment: Speci men Type: BLOOD SPECIMENOrdering Facility: [facility] Address: [address] [place] [address] Performed By: #### 2 4323-8, ####[facility]ORYCLIA [id number] [place] [address] [place] Protein [Mass/Vol] 5.8 g/dL Low 6.3-8.0 [facility] Comment on above: Order Comment: Speci men Type: BLOOD SPECIMENOrdering Facility: [facility] Address: [address] [place] [address] Performed By: #### 2 432-8, ####[facility]ATORYCLIA [id number] [place] [address] [place] Sodium [Moles/Vol] 135 mmol/L Low 136-144 [facility] Comment on above: Order Comment: Speci men Type: BLOOD SPECIMENOrdering Facility: [facility] Address: [address] [place] [address] Performed By: #### 2 3-8, ####[facility]ORYCLIA [id number] [place] [address] [place] Urea nitrogen [Mass/Vol] 37 mg/dL High 9-24 [facility] Comment on above: Order Comment: Speci men Type: BLOOD SPECIMENOrdering Facility: [facility] Address: [address] [place] [address] Performed By: #### 2 4323-8, ####[facility]ORYCLIA [id number] [place] [address] [place] Magnesium SerPl-mCncon 02-18 Magnesium [Mass/Vol] 2.3 mg/dL Normal 1.7-2.3 [facility] Comment on above: Order Comment: Speci men Type: BLOOD SPECIMENOrdering Facility: [facility] Address: [address] [place] [address] Performed By: #### 2 4323-8, 58699-5 ####[facility]ORYCLIA [id number] [address] [place] [facility] aPTT PPPon 02-18-2025 aPTT Coag (PPP) [Time] 40.2 s High 23.0-32.4 [facility] Comment on above: Order Comment: Speci men Type: BLOOD SPECIMENOrdering Facility: [facility] Address: [address] [place] [address] Performed By: #### 1 4979-9 ####[facility]ORYCLIA [id number] [address] [facility] aPTT Coag (PPP) [Time] 35.5 s High 23.0-32.4 [facility] Comment on above: Order Comment: Speci men Type: BLOOD SPECIMENOrdering Facility: [facility] Address: [address] [place] [address] Performed By: #### 1 4979-9 ####[facility]ATORYCLIA [id number] [address] [place] [facility] aPTT Coag (PPP) [Time] 33.2 s High 23.0-32.4 [facility] Comment on above: Order Comment: Speci men Type: BLOOD SPECIMENOrdering Facility: [facility] Address: [address] [place] [address] Performed By: #### 1 4979-9 ####[facility]ORYCLIA [id number] [address] [place] aPTT Coag (PPP) [Time] 51.0 s High 23.0-32.4 [facility] Comment on above: Order Comment: Speci men Type: BLOOD SPECIMENOrdering Facility: [facility] Address: [address] [place] [address] Performed By: #### 1 4979-9 ####[facility]ORYCLIA [id number] [address] [place] ALLIED HEALTHon 02-17-2025 ALLIED HEALTH HNO ID: [id number] Author: JANEL SIMEON RT(R) Service: Radiology Author [...] PATIENT PRESENTS WITH AN IMPLANTABLE OR ATTACHED ACTIVITIES LEADER: No RADIOLOGY DEPARTMENT: General X-ray: Exam(s) Completed: Abdomen X-Ray: Abdomen PERIPHERAL IV DATA: Not applicable SIGNED BY: RT Chelita(R) February 17, 2025 7:57 AM Normal [facility] Bacteria Spec Resp Culton Bacteria identified Respiratory [...] , Intermediate >4 , Resistant >8 Abnormal [facility] Comment on above: Performed By: #### 3 2355-0 ####[facility]ORATORYCLIA [id number] [address] CBC panel Auto (Bld)on 02-17 Erythrocyte distribution width (RBC) [Ratio] 15.0 % Normal 11.5-15.0 [facility] Comment on above: Order Comment: Jg valdez Type: BLOOD SPECIMENOrdering Facility: [facility] Address: [address] [place] [address] Performed By: #### 5 [id number] ####[facility] LABORATORYCLIA [id number] [address] [place] [facility] Hematocrit (Bld) [Volume fraction] 41.4 % Normal 39.0-51.0 [facility] Comment on above: Order Comment: Jg valdez Type: BLOOD SPECIMENOrdering Facility: [facility] Address: [address] [place] [address] Performed By: #### 5 8410-2 ####[facility] LABORATORYCLIA [id number] [address] Hemoglobin (Bld) [Mass/Vol] 13.1 g/dL Normal 13.0-17.0 [facility] Comment on above: Order Comment: Speci men Type: BLOOD SPECIMENOrdering Facility: [facility] Address: [address] [place] [address] Performed By: #### 5 8410-2 ####[facility] LABORATORYCLIA [id number] [address] MCH (RBC) [Entitic mass] 29.9 pg Normal 26.0-34.0 [facility] Comment on above: Order Comment: Speci men Type: BLOOD SPECIMENOrdering Facility: [facility] Address: [address] [place] [address] Performed By: #### 5 8410-2 ####[facility] LABORATORYCLIA [id number] [address] [facility] MCHC (RBC) [Mass/Vol] 31.6 g/dL Normal 30.5-36.0 [facility] Comment on above: Order Comment: Speci men Type: BLOOD SPECIMENOrdering Facility: [facility] Address: [address] [place] [address] Performed By: #### 5 8410-2 ####[facility] LABORATORYCLIA [id number] [address] MCV (RBC) [Entitic vol] 94.5 fL Normal 80.0-100.0 [facility] Comment on above: Order Comment: Speci men Type: BLOOD SPECIMENOrdering Facility: [facility] Address: [address] [place] [address] Performed By: #### 5 8410-2 ####[facility]ORATORYCLIA [id number] [address] Nucleated RBC (Bld) [#/Vol] 10*3/uL Normal <0.01 [facility] Comment on above: Order Comment: Speci men Type: BLOOD SPECIMENOrdering Facility: [facility] Address: [address] [place] [address] Performed By: #### 5 8410-2 ####[facility] LABORATORYCLIA [id number] [address] [place] Platelet mean volume (Bld) [Entitic vol] 12.0 fL Normal 9.0-12.7 [facility] Comment on above: Order Comment: Speci men Type: BLOOD SPECIMENOrdering Facility: [facility] Address: [address] [place] [address] Performed By: #### 5 8410-2 ####[facility]ORATORYCLIA [id number] [address] [place] Platelets (Bld) [#/Vol] 64 10*3/uL Low 150-400 [facility] Comment on above: Order Comment: Speci men Type: BLOOD SPECIMENOrdering Facility: [facility] Address: [address] [place] [address] Result Comment: No c lot detected. Performed By: #### 5 8410-2 ####[facility]ATORYCLIA [id number] [address] RBC (Bld) [#/Vol] 4.38 10*6/uL Normal 4.20-6.00 [facility] Comment on above: Order Comment: Speci men Type: BLOOD SPECIMENOrdering Facility: [facility] Address: [address] [place] [address] Performed By: #### 5 8410-2 ####[facility]ORATORYCLIA [id number] [address] [place] WBC (Bld) [#/Vol] 14.96 10*3/uL High 3.70-11.00 [facility] Comment on above: Order Comment: Speci men Type: BLOOD SPECIMENOrdering Facility: [facility] Address: [address] [place] [address] Performed By: #### 5 8410-2 ####[facility] LABORATORYCLIA [id number] [address] [place] Erythrocyte distribution width (RBC) [Ratio] 14.8 % Normal 11.5-15.0 [facility] Comment on above: Order Comment: Speci men Type: BLOOD SPECIMENOrdering Facility: [facility] Address: [address] [place] [address] Performed By: #### 5 8410-2 ####[facility]ORATORYCLIA [id number] [address] [facility] Hematocrit (Bld) [Volume fraction] 36.6 % Low 39.0-51.0 [facility] Comment on above: Order Comment: Speci men Type: BLOOD SPECIMENOrdering Facility: [facility] Address: [address] [place] [address] Performed By: #### 5 8410-2 ####[facility]ORATORYCLIA [id number] [address] [facility] Hemoglobin (Bld) [Mass/Vol] 11.9 g/dL Low 13.0-17.0 [facility] Comment on above: Order Comment: Speci men Type: BLOOD SPECIMENOrdering Facility: [facility] Address: [address] [place] [address] Performed By: #### 5 8410-2 ####[facility] LABORATORYCLIA [id number] [address] [facility] MCH (RBC) [Entitic mass] 30.1 pg Normal 26.0-34.0 [facility] Comment on above: Order Comment: Speci men Type: BLOOD SPECIMENOrdering Facility: [facility] Address: [address] [place] [address] Performed By: #### 5 8410-2 ####[facility]ATORYCLIA [id number] [address] [place] MCHC (RBC) [Mass/Vol] 32.5 g/dL Normal 30.5-36.0 [facility] Comment on above: Order Comment: Speci men Type: BLOOD SPECIMENOrdering Facility: [facility] Address: [address] [place] [address] Performed By: #### 5 8410-2 ####[facility]ORATORYCLIA [id number] [address] MCV (RBC) [Entitic vol] 92.7 fL Normal 80.0-100.0 [facility] Comment on above: Order Comment: Speci men Type: BLOOD SPECIMENOrdering Facility: [facility] Address: [address] [place] [address] Performed By: #### 5 8410-2 ####[facility]ORATORYCLIA [id number] [address] [place] Nucleated RBC (Bld) [#/Vol] 10*3/uL Normal <0.01 [facility] Comment on above: Order Comment: Speci men Type: BLOOD SPECIMENOrdering Facility: [facility] Address: [address] [place] [address] Performed By: #### 5 8410-2 ####[facility]ATORYCLIA [id number] [address] [facility] Platelet mean volume (Bld) [Entitic vol] 11.7 fL Normal 9.0-12.7 [facility] Comment on above: Order Comment: Speci men Type: BLOOD SPECIMENOrdering Facility: [facility] Address: [address] [place] [address] Performed By: #### 5 8410-2 ####[facility]ORATORYCLIA [id number] [address] Platelets (Bld) [#/Vol] 93 10*3/uL Low 150-400 [facility] Comment on above: Order Comment: Speci men Type: BLOOD SPECIMENOrdering Facility: [facility] Address: [address] [place] [address] Result Comment: No c lot detected. Performed By: #### 5 8410-2 ####[facility]ATORYCLIA [id number] [address] RBC (Bld) [#/Vol] 3.95 10*6/uL Low 4.20-6.00 [facility] Comment on above: Order Comment: Speci men Type: BLOOD SPECIMENOrdering Facility: [facility] Address: [address] [place] [address] Performed By: #### 5 8410-2 ####[facility]ORATORYCLIA [id number] [place] [address] [place] WBC (Bld) [#/Vol] 19.64 10*3/uL High 3.70-11.00 [facility] Comment on above: Order Comment: Speci men Type: BLOOD SPECIMENOrdering Facility: [facility] Address: [address] [place] [id number] Performed By: #### 5 8410-2 ####[facility] LABORATORYCLIA [id number] [place] [address] [facility] CONSULTon 02-17-2025 CONSULT HNO ID: [id number] Author: GAYLE SCOTT MD Service: Infectious Disease [...] and UTI. Spinal cord injury residing at [facility], presented [facility] 02/16/2025 for unresponsiveness when normally alert and [...] that although she was not at the [facility] she was called and told he was [...] 12.5 g (more content not included)... Normal [facility] CONSULT HNO ID: [id number] Author: ANMOL HERBERT MD Service: Urology Author Type: Resident Type: Consults Filed: 02/19/2025 14:56 Note Text: Attestation signed by Anmol Herbert MD at 02/19/2025 2:56 PM I saw and evaluated the patient. Discussed with the resident and agree with resident's findings and plan as documented in the resident's note. Reviewed [facility] hx and imaging. Currently improving. Discussed plan w/ ID (Dr. Scott) Plan on outpt cysto, pyelograms, stent change vs removal in 2-3 weeks. Anmol Herbert MD Urology Consult 02/16/2025 HISTORY OF PRESENT ILLNESS: The patient is a 64 year old male known to [facility] urology, with past medical history [...] Chronic pain of right ankle 11/26/2021 Diabetes ([facility]) Elevated CA 19-9 level 08/21/2021 Epidural abscess (HCC) 01/04/2022 MRSA bacteremia 11/27/2021 Neuropathy Nicotine use disorder, F17.2 06/14/2019 Pilonidal cyst with abscess 12/31/2020 Pilonidal cyst without abscess 05/29/2020 Pyelonephritis 11/27/2021 Sciatica Severe protein-calorie malnutrition (HCC) 09/04/2021 Type 2 diabetes mellitus with hyperglycemia, with long-term current use of insulin ([facility]) 01/18/2021 Ureteral stone 11/25/2021 UTI (urinary tract infection) 11/26/2021 Vertebral osteomyelitis ([facility]) 01/04/2022 PAST SURGICAL HISTORY: PAST SURGICAL [...] Rfl: me (more content not included)... Normal [facility] CONSULT PROGon 02-17-2025 CONSULT PROG HNO ID: [id number] Author: JESSICA CLEMENT RPh Service: Pharmacy Author [...] questions, [place] [phone]. Age: [age] year old Allergies: ALLERGIES No [...] 6.1 (L) 12/02/2021 1246 13.7 Jessica Clement [facility] CONSULT PROG HNO ID: [id number] Author: YARI CAMARGO APRN.PROPOSAL ENGINEER Service: Wound/Ostomy Author Type: Nurse Practitioner Type: Consult Progress Note Filed: 02/17/2025 10:33 Note Text: Summary: Inpatient Wound Care WOUND CARE SERVICE CONSULT RN DIABETES NOTE SERVICE DATE: 02/17/2025 SERVICE TIME: 0809 [...] who is seen today with Katlin Vasquez, Wound/aircraft de icer installer, and presented to hospital with complaints of [...] PRN cyc (more content not included)... Normal [facility] CONSULT PROG HNO ID: [id number] Author: RUBI RIVER RPh Service: Pharmacy Author [...] have any questions, [place] [phone]. Age: [age] year old Allergies: ALLERGIES No [...] 1246 13.7 12/01/2021 0428 14.2 [facility] Normal [facility] Comprehensive metabolic 2000 panelon 02-17-2025 Albumin [Mass/Vol] 2.5 g/dL Low 3.9-4.9 [facility] Comment on above: Order Comment: Speci men Type: BLOOD SPECIMENOrdering Facility: [facility] Address: [address] [place] [address] Performed By: #### 2 777-1, 30285-5 ####[facility] LABORATORYCLIA [id number] [address] [facility] ALP [Catalytic activity/Vol] 174 U/L High 38-113 [facility] Comment on above: Order Comment: Speci men Type: BLOOD SPECIMENOrdering Facility: [facility] Address: [address] [place] [address] Performed By: #### 2 777-1, 24759-4 ####[facility]ORATORYCLIA [id number] [address] [place] ALT With P-5'-P [Catalytic activity/Vol] 21 U/L Normal 10-54 [facility] Comment on above: Order Comment: Speci men Type: BLOOD SPECIMENOrdering Facility: [facility] Address: [address] [place] [address] Performed By: #### 2 777-1, 03311-2 ####[facility]ORATORYCLIA [id number] [address] [place] Anion gap [Moles/Vol] 11 mmol/L Normal 8-15 [facility] Comment on above: Order Comment: Speci men Type: BLOOD SPECIMENOrdering Facility: [facility] Address: [address] [place] [address] Performed By: #### 2 777-1, 35246-9 ####[facility] LABORATORYCLIA [id number] [address] [facility] AST With P-5'-P [Catalytic activity/Vol] 41 U/L High 14-40 [facility] Comment on above: Order Comment: Speci men Type: BLOOD SPECIMENOrdering Facility: [facility] Address: [address] [place] [address] Performed By: #### 2 777-1, 29961-4 ####[facility] LABORATORYCLIA [id number] [address] [place] Bilirubin [Mass/Vol] 0.9 mg/dL Normal 0.2-1.3 [facility] Comment on above: Order Comment: Speci men Type: BLOOD SPECIMENOrdering Facility: [facility] Address: [address] [place] [address] Performed By: #### 2 777-1, 14855-2 ####[facility] LABORATORYCLIA [id number] [address] [place] Calcium [Mass/Vol] 8.2 mg/dL Low 8.5-10.2 [facility] Comment on above: Order Comment: Speci men Type: BLOOD SPECIMENOrdering Facility: [facility] Address: [address] [place] [address] Performed By: #### 2 777-1, 55450-9 ####[facility] LABORATORYCLIA [id number] [place] [address] [place] Chloride [Moles/Vol] 104 mmol/L Normal 98-107 [facility] Comment on above: Order Comment: Speci men Type: BLOOD SPECIMENOrdering Facility: [facility] Address: [address] [place] [address] Performed By: #### 2 777-1, 21365-6 ####[facility]ORATORYCLIA [id number] [place] [address] [place] CO2 [Moles/Vol] 17 mmol/L Low 22-30 [facility] Comment on above: Order Comment: Speci men Type: BLOOD SPECIMENOrdering Facility: [facility] Address: [address] [place] [address] Performed By: #### 2 777-1, 72536-3 ####[facility]ORATORYCLIA [id number] [address] [place] Creatinine [Mass/Vol] 1.90 mg/dL High 0.73-1.22 [facility] Comment on above: Order Comment: Speci men Type: BLOOD SPECIMENOrdering Facility: [facility] Address: [address] [place] [address] Performed By: #### 2 777-1, 60768-4 ####[facility]ORATORYCLIA [id number] [address] Creatinine and Glomerular filtration rate.predicted panel (S/P/Bld) 39 mL/min/1.73m??? Low >=60 [facility] Comment on above: Order Comment: Speci men Type: BLOOD SPECIMENOrdering Facility: [facility] Address: [address] [place] [address] Result Comment: Leena mated Glomerular Filtration Rate [...] actual GFR. Performed By: #### 2 777-1, 22643-0 ####[facility] LABORATORYCLIA [id number] [place] [address] [place] Glucose [Mass/Vol] 225 mg/dL High 74-99 [facility] Comment on above: Order Comment: Jg valdez Type: BLOOD SPECIMENOrdering Facility: [facility] Address: [address] [place] [address] Result Comment: The [place] Diabetes Association (ADA) provides guidance for cutoff [...] Standards of Medical Care in Diabetes 2016, [place] [employer]. Diabetes Care. 2016.39(Suppl 1). Performed By: #### 2 777-1, 90050-2 ####[facility] LABORATORYCLIA [id number] [place] [address] [place] Potassium [Moles/Vol] 4.7 mmol/L Normal 3.7-5.1 [facility] Comment on above: Order Comment: Jg valdez Type: BLOOD SPECIMENOrdering Facility: [facility] Address: [address] [place] [address] Performed By: #### 2 777-1, 28745-1 ####[facility] LABORATORYCLIA [id number] [place] [address] [place] Protein [Mass/Vol] 6.0 g/dL Low 6.3-8.0 [facility] Comment on above: Order Comment: Speci men Type: BLOOD SPECIMENOrdering Facility: [facility] Address: [address] [place] [address] Performed By: #### 2 777-1, 33214-8 ####[facility] LABORATORYCLIA [id number] [place] [address] [place] Sodium [Moles/Vol] 132 mmol/L Low 136-144 [facility] Comment on above: Order Comment: Speci men Type: BLOOD SPECIMENOrdering Facility: [facility] Address: [address] [place] [address] Performed By: #### 2 777-1, 15063-6 ####[facility]ORATORYCLIA [id number] [place] [address] [place] Urea nitrogen [Mass/Vol] 34 mg/dL High 9-24 [facility] Comment on above: Order Comment: Speci men Type: BLOOD SPECIMENOrdering Facility: [facility] Address: [address] [place] [address] Performed By: #### 2 777-1, 19393-7 ####[facility] LABORATORYCLIA [id number] [place] [id number] [place] ECG COMPLETEon 02-17-2025 ECG COMPLETE Ventricular Rate : 152 BPM QRS Duration : 100 ms Q-T Interval : 300 ms QTC Calculation(Bazett) : 477 ms Calculated R Casscoe : 16 degrees Calculated T Casscoe : 7 degrees ATRIAL FIBRILLATION WITH RAPID VENTRICULAR RESPONSE NONSPECIFIC T WAVE ABNORMALITY ABNORMAL ECG WHEN COMPARED WITH ECG OF 16-Feb-2025 19:16, ATRIAL FIBRILLATION HAS REPLACED SINUS RHYTHM NONSPECIFIC T WAVE ABNORMALITY NOW EVIDENT IN INFERIOR LEADS Confirmed by MANISHA ANDERSEN MD ([id number]) on 02/17/2025 9:11:43 AM NAME : ANMOL REYNOLDS PID : [id number] : 1960 Gender : Male Race : ORD : [id number] Procedure Date : Feb 17 2025 07:55:31 Edit Date : Feb 17 2025 09:11:44 Diagnosis: ATRIAL FIBRILLATION WITH RAPID VENTRICULAR RESPONSE NONSPECIFIC T WAVE ABNORMALITY ABNORMAL ECG WHEN COMPARED WITH ECG OF 16-Feb-2025 19:16, ATRIAL FIBRILLATION HAS REPLACED SINUS RHYTHM NONSPECIFIC T WAVE ABNORMALITY NOW EVIDENT IN INFERIOR LEADS Confirmed by MANISHA ANDERSEN MD ([id number]) on 02/17/2025 9:11:43 AM Test Reason : Arrhythmia Location : 200 : [facility]19 Overread By : MANISHA ANDERSEN MD Edited By : MANISHA ANDERSEN MD Referred By : , Acquired by : SANDHYA ABURTO [facility] ECHOon 02-17-2025 Echocardiography Echocardiography Report: Transthoracic Echo [facility] Date of service: 02/17/2025 10:58:00 AM [facility] Ordering physician: JON MCDONALD Indication: Sustained atrial fibrillation Technologist: Marie Magana [facility] Interpreting physician: Naresh Yo MD PATIENT: Name: [...] - Exam was compared with the prior CC echocardiographic exam performed on 01/23/2022. LV wall motion abnormalities seen on today's exam. * * * Final * * * [facility] Image : [id number] amicsSISUID Normal [facility] Gas and Carbon monoxide pane l (BldV)on 02-17-2025 BASE DEFICIT, VENOUS -7 mmol/L Low -2-0 [facility] Comment on above: Order Comment: Speci men Type: VENOUS BLOOD SPECIMENOrdering Facility: [facility] Address: [address] [place] [address] Performed By: #### 2 4344-4 ####[facility] LABORATORYCLIA [id number] [address] [facility] Body temperature 99.86 [degF] Normal [facility] Comment on above: Order Comment: Speci men Type: VENOUS BLOOD SPECIMENOrdering Facility: [facility] Address: [address] [place] [address] Performed By: #### 2 4344-4 ####[facility] LABORATORYCLIA [id number] [address] [place] Calcium.ionized (BldV) [Mass/Vol] 1.17 mmol/L Normal 1.08-1.30 [facility] Comment on above: Order Comment: Speci men Type: VENOUS BLOOD SPECIMENOrdering Facility: [facility] Address: [address] [place] [address] Performed By: #### 2 4344-4 ####[facility] LABORATORYCLIA [id number] [address] [place] Calcium.ionized adjusted to pH 7.4 (BldA) [Moles/Vol] 1.12 mmol/L Normal 1.08-1.30 [facility] Comment on above: Order Comment: Speci men Type: VENOUS BLOOD SPECIMENOrdering Facility: [facility] Address: [address] [place] [address] Performed By: #### 2 4344-4 ####[facility] LABORATORYCLIA [id number] [address] [place] Carboxyhemoglobin (BldV) [Mass fraction] 1.1 % Normal 0.0-2.0 [facility] Comment on above: Order Comment: Speci men Type: VENOUS BLOOD SPECIMENOrdering Facility: [facility] Address: [address] [place] [address] Result Comment: Carb oxyhemoglobin Reference Range for Smokers: 2.0-8.0% Performed By: #### 2 4344-4 ####[facility]ORATORYCLIA [id number] [place] [address] [place] Chloride [Moles/Vol] 107 mmol/L High 97-105 [facility] Comment on above: Order Comment: Speci men Type: VENOUS BLOOD SPECIMENOrdering Facility: [facility] Address: [address] [place] [address] Performed By: #### 2 4344-4 ####[facility] LABORATORYCLIA [id number] [address] [place] CO2 (BldV) [Partial pressure] 38 mm[Hg] Low 42-55 [facility] Comment on above: Order Comment: Speci men Type: VENOUS BLOOD SPECIMENOrdering Facility: [facility] Address: [address] [place] [address] Performed By: #### 2 4344-4 ####[facility] LABORATORYCLIA [id number] [address] CO2 adjusted to patient's actual temperature (BldV) [Partial pressure] 39 mmHg Low 42-55 [facility] Comment on above: Order Comment: Speci men Type: VENOUS BLOOD SPECIMENOrdering Facility: [facility] Address: [address] [place] [address] Performed By: #### 2 4344-4 ####[facility]ORATORYCLIA [id number] [place] [address] [place] Glucose [Mass/Vol] 236 mg/dL High 60-105 [facility] Comment on above: Order Comment: Speci men Type: VENOUS BLOOD SPECIMENOrdering Facility: [facility] Address: [address] [place] [address] Performed By: #### 2 4344-4 ####[facility]ORATORYCLIA [id number] [address] [place] HCO3 (Bld) [Moles/Vol] 18 mmol/L Low 24-28 [facility] Comment on above: Order Comment: Speci men Type: VENOUS BLOOD SPECIMENOrdering Facility: [facility] Address: [address] [place] [address] Performed By: #### 2 4344-4 ####[facility]ORATORYCLIA [id number] [address] [facility] Hematocrit (Bld) [Volume fraction] 37.3 % Low 39.0-51.0 [facility] Comment on above: Order Comment: Speci men Type: VENOUS BLOOD SPECIMENOrdering Facility: [facility] Address: [address] [place] [address] Performed By: #### 2 4344-4 ####[facility] LABORATORYCLIA [id number] [address] [place] Hemoglobin (Bld) [Mass/Vol] 12.1 g/dL Low 13.0-17.0 [facility] Comment on above: Order Comment: Speci men Type: VENOUS BLOOD SPECIMENOrdering Facility: [facility] Address: [facility] [place] [address] Performed By: #### 2 4344-4 ####[facility] LABORATORYCLIA [id number] [address] Lactate [Moles/Vol] 2.2 mmol/L Normal 0.5-2.2 [facility] Comment on above: Order Comment: Speci men Type: VENOUS BLOOD SPECIMENOrdering Facility: [facility] Address: [address] [place] [address] Performed By: #### 2 4344-4 ####[facility] LABORATORYCLIA [id number] [address] [place] Methemoglobin (Bld) [Mass fraction] 0.8 % Normal 0.0-1.5 [facility] Care Comment on above: Order Comment: Speci men Type: VENOUS BLOOD SPECIMENOrdering Facility: [facility] Address: [address] [place] [address] Performed By: #### 2 4344-4 ####[facility] LABORATORYCLIA [id number] [address] [place] O2 THERAPY VENT=Ventilator Normal [facility] Comment on above: Order Comment: Speci men Type: VENOUS BLOOD SPECIMENOrdering Facility: [facility] Address: [address] [place] [address] Performed By: #### 2 4344-4 ####[facility]ATORYCLIA [id number] [place] [id number] [place] Oxygen (BldV) [Partial pressure] 65 mm[Hg] High 35-45 [facility] Comment on above: Order Comment: Speci men Type: VENOUS BLOOD SPECIMENOrdering Facility: [facility] Address: [address] [place] [address] Performed By: #### 2 4344-4 ####[facility]ATORYCLIA [id number] [address] [place] Oxygen adjusted to patient's actual temperature (BldV) [Partial pressure] 68 mmHg High 35-45 [facility] Comment on above: Order Comment: Speci men Type: VENOUS BLOOD SPECIMENOrdering Facility: [facility] Address: [address] [place] [address] Performed By: #### 2 4344-4 ####[facility]ORATORYCLIA [id number] [address] [place] Oxygen saturation in Venous blood 90 % High 60-85 [facility] Comment on above: Order Comment: Speci men Type: VENOUS BLOOD SPECIMENOrdering Facility: [facility] Address: [address] [place] [address] Performed By: #### 2 4344-4 ####[facility]ORYCLIA [id number] [place] [id number] [place] Oxyhemoglobin (BldV) [Mass fraction] 89 % High 60-85 [facility] Comment on above: Order Comment: Speci men Type: VENOUS BLOOD SPECIMENOrdering Facility: [facility] Address: [address] [place] [address] Performed By: #### 2 4344-4 ####[facility]ATORYCLIA [id number] [place] [address] [place] pH (BldV) 7.31 [pH] Low 7.32-7.42 [facility] Comment on above: Order Comment: Speci men Type: VENOUS BLOOD SPECIMENOrdering Facility: [facility] Address: [address] [place] [address] Performed By: #### 2 4344-4 ####[facility]ATORYCLIA [id number] [address] pH adjusted to patient's actual temperature (BldV) 7.30 Low 7.32-7.42 [facility] Comment on above: Order Comment: Speci men Type: VENOUS BLOOD SPECIMENOrdering Facility: [facility] Address: [address] [place] [address] Performed By: #### 2 4344-4 ####[facility]ATORYCLIA [id number] [address] [facility] Potassium [Moles/Vol] 4.7 mmol/L Normal 3.5-5.0 [facility] Comment on above: Order Comment: Speci men Type: VENOUS BLOOD SPECIMENOrdering Facility: [facility] Address: [address] [place] [address] Performed By: #### 2 4344-4 ####[facility]ORYCLIA [id number] [address] Sodium [Moles/Vol] 134 mmol/L Low 136-144 [facility] Comment on above: Order Comment: Speci men Type: VENOUS BLOOD SPECIMENOrdering Facility: [facility] Address: [address] [place] [address] Performed By: #### 2 4344-4 ####[facility]ORATORYCLIA [id number] [address] [place] NURSING PROGon 02-17-2025 NURSING PROG HNO ID: [id number] Author: ARLEN BUTLER RN Service: Nursing Author Type: Registered Nurse Type: Nursing Progress Note Filed: 02/17/2025 07:12 Note Text: Dr. Story and Dr. Gama at bedside. Pt in Afib rhythm. Order for 2 grams Magnesium IV Normal [facility] NUTRITIONon 02-17-2025 NUTRITION HNO ID: [id number] Author: DARA MCDUFFIE RD Service: Nutrition Therapy [...] h/o paraplegia and wounds admitted from a CT after being found unresponsive with concerns for sepsis. Intubated in ICU. Intake History: Nutrition Intake Prior to Admission: Greater than 75% estimated energy needs Dosing Weight: 74 kg (163 lb 2.3 oz) Dosing Weight Type: [place] body weight (adjusted for paraplegia) Estimated kilocalorie [...] Airways Drain Duration Indwelling Urinary Catheter 02/16/252125 [facility] Coude 20 Fr <1 day MNT Billing: $ Initial Assessment: 1 unit Time Spent (mins): 8 SIGNATURE: Dara Mcduffie RD PATIENT NAME: Anmol Given DATE: February 17, 2025 TIME: 8:02 AM Normal [facility] PT panel Coag (PPP)on 2024 INR Coag (PPP) [Relative time] 1.2 {INR} Normal 0.9-1.3 [facility] Comment on above: Order Comment: Specliliana men Type: BLOOD SPECIMENOrdering Facility: [facility] Address: [address] [place] [address] Result Comment: Lorna min K Antagonist (VKA) Therapeutic Range: INR 2 to 3 (Target INR of 2.5) Note: For patients treated with VKA drugs, such as warfarin, the [place] 2012 Guideline recommends [...] Chest 2012, 141:7S-47S Marcela RA, et al. [facility] 2017, 70: 252-289 Performed By: #### 1 4979-9, 42955-3 ####[facility]ORATORYCLIA [id number] [place] [address] [place] PT Coag (PPP) [Time] 12.4 s Normal 9.7-13.0 [facility] Comment on above: Order Comment: Jg valdez Type: BLOOD SPECIMENOrdering Facility: [facility] Address: [address] [place] [address] Performed By: #### 1 4979-9, 00388-2 ####[facility]ORATORYCLIA [id number] [place] [address] [place] Phosphate SerPl-mCncon 02-17 Phosphate [Mass/Vol] 4.4 mg/dL Normal 2.7-4.8 [facility] Comment on above: Order Comment: Speci men Type: BLOOD SPECIMENOrdering Facility: [facility] Address: [address] [place] [address] Performed By: #### 2 777-1, 50573-2 ####[facility]ORATORYCLIA [id number] [place] [address] [place] STAPHYLOCOCCUS AUREUS AND MR SA SCREEN, PCR, NASALon 02-17-2025 S. aureus and MRSA panel JOSSY+probe (Nose) Methicillin-SUSCEPTIB LE Staphylococcus aureus Detected Abnormal Not Detected [facility] Comment on above: Order Comment: Speci men Type: SWABOrdering Facility: [facility] Address: [address] [place] [address] Performed By: #### S APCR ####[facility]ORATORYCLIA [id number] [place] [address] [place] THERAPY NTon 02-17-2025 THERAPY NT HNO ID: [id number] Author: SANDHYA ABURTO RRT Service: Respiratory Therapy [...] 02/17/2025 SERVICE TIME: 804 sbt SIGNATURE: Sandhya Aburto, JUNIOR BOOKKEEPER PATIENT NAME: Anmol Given DATE: February 17, 2025 TIME: 8:03 AM PAGER/CONTACT #: vocera Normal [facility] Vancomycin random [Mass/Vol] on 02-17-2025 Vancomycin [Mass/Vol] 6.1 ug/mL Low 10.0-20.0 [facility] Comment on above: Order Comment: Speci men Type: BLOOD SPECIMENOrdering Facility: [facility] Address: [address] [place] [address] Result Comment: Refe rence ranges and high/low indicator flags are provided as general guidelines only. The treating physician must determine appropriate target levels/dosing based on the specific clinical situation. Performed By: #### 4 091-5 ####[facility]ORATORYCLIA [id number] [address] [facility] XR ABDOMEN 1V SUPINEon 02-17 XR [...] The side port overlies the GE junction. Valet Parking Attendant: CECILIA Transcribe Date/Time: Feb 17 2025 11:05A Dictated by : VIPIN JASSO MD This examination was interpreted and the report reviewed and electronically signed by: VIPIN JASSO MD on Feb 17 2025 11:06AM EST [id number] Normal [facility] aPTT PPPon 02-17-2025 aPTT Coag (PPP) [Time] 38.7 s High 23.0-32.4 [facility] Comment on above: Order Comment: Speci men Type: BLOOD SPECIMENOrdering Facility: [facility] Address: [address] [place] [address] Performed By: #### 1 4979-9 ####[facility]ORATORYCLIA [id number] [address] aPTT Coag (PPP) [Time] EXTREMELY ABNORMA L RESULT. No clot detected at 320 seconds. Refer to anticoagulation nomogram for further actions. Critically abnormal (none) [facility] Comment on above: Order Comment: Jg valdez Type: BLOOD SPECIMENOrdering Facility: [facility] Address: [address] [place] [address] Performed By: #### 1 4979-9 ####[facility]ATORYCLIA [id number] [address] aPTT Coag (PPP) [Time] 36.7 s High 23.0-32.4 [facility] Comment on above: Order Comment: Jg valdez Type: BLOOD SPECIMENOrdering Facility: [facility] Address: [address] [place] [address] Performed By: #### 1 4979-9, 77038-1 ####[facility]ITALCLIA [id number] [place] [id number] [facility] ALLIED HEALTHon 02-16-2025 ALLIED HEALTH HNO ID: [id number] Author: DILCIA BASILIO RT(R) Service: ? Author [...] PATIENT PRESENTS WITH AN IMPLANTABLE OR ATTACHED ACTIVITIES LEADER: No ALLERGIES: Reviewed and unchanged CONTRAST ALLERGY: [...] PERIPHERAL IV DATA: Inpatient - refer to [facility] documentation RADIOLOGY DEPARTMENT: CT; Exam(s) Completed: Brain , Chest Abdomen Pelvis, CTA Brain , and CTA Neck SIGNATURE: Dilcia Basilio, RT(R) PATIENT NAME: Anmol Reynolds DATE: February 16, 2025 TIME: 8:26 PM Normal [facility] Bacteria Bld Culton 02-17-20 25 Bacteria identified [...] , Intermediate >=.5 , Resistant >=1 Abnormal [facility] Comment on above: Performed By: #### 6 00-7 ####[facility]ORATORYCLIA [id number] [place] [address] [place] Bacteria identified Cx [...] , Intermediate >=.5 , Resistant >=1 Abnormal [facility] Comment on above: Performed By: #### 6 00-7 #### [facility] CLIA [id number] [address] [place] [address] [place] Bacteria Ur Culton [...] , Intermediate >32 , Resistant >64 Abnormal [facility] Comment on above: Performed By: #### 2 4356-8, 630-4 ####[facility]ATORYCLIA [id number] [address] OF [facility] CBC W Auto Differential pane l (Bld)on 02-16-2025 Basophils (Bld) [#/Vol] 0.00 10*3/uL Normal <0.11 [facility] Comment on above: Order Comment: Speci men Type: BLOOD SPECIMENOrdering Facility: [facility] Address: [address] [place] [address] Performed By: #### 5 7021-8 ####[facility]ATORYCLIA [id number] [address] [facility] Basophils/100 WBC (Bld) 0.0 % Normal [facility] Comment on above: Order Comment: Speci men Type: BLOOD SPECIMENOrdering Facility: [facility] Address: [address] [place] [address] Performed By: #### 5 7021-8 ####[facility]ORATORYCLIA [id number] [address] [facility] Differential cell count method Nom (Bld) Manual Normal [facility] Comment on above: Order Comment: Speci men Type: BLOOD SPECIMENOrdering Facility: [facility] Address: [address] [place] [address] Performed By: #### 5 7021-8 ####[facility]ORYCLIA [id number] [address] Eosinophils (Bld) [#/Vol] 0.00 10*3/uL Normal <0.46 [facility] Comment on above: Order Comment: Speci men Type: BLOOD SPECIMENOrdering Facility: [facility] Address: [address] [place] [address] Performed By: #### 5 7021-8 ####[facility]ATORYCLIA [id number] [address] Eosinophils/100 WBC (Bld) 0.0 % Normal [facility] Comment on above: Order Comment: Speci men Type: BLOOD SPECIMENOrdering Facility: [facility] Address: [address] [place] [address] Performed By: #### 5 7021-8 ####[facility]ATORYCLIA [id number] [address] Erythrocyte distribution width (RBC) [Ratio] 14.5 % Normal 11.5-15.0 [facility] Comment on above: Order Comment: Speci men Type: BLOOD SPECIMENOrdering Facility: [facility] Address: [address] [place] [address] Performed By: #### 5 7021-8 ####[facility]ATORYCLIA [id number] [address] Hematocrit (Bld) [Volume fraction] 34.9 % Low 39.0-51.0 [facility] Comment on above: Order Comment: Speci men Type: BLOOD SPECIMENOrdering Facility: [facility] Address: [address] [place] [address] Performed By: #### 5 7021-8 ####[facility]ORYCLIA [id number] [address] [place] Hemoglobin (Bld) [Mass/Vol] 11.6 g/dL Low 13.0-17.0 [facility] Comment on above: Order Comment: Speci men Type: BLOOD SPECIMENOrdering Facility: [facility] Address: [address] [place] [address] Performed By: #### 5 7021-8 ####[facility]ATORYCLIA [id number] [address] [place] Lymphocytes (Bld) [#/Vol] 0.31 10*3/uL Low 1.00-4.00 [facility] Comment on above: Order Comment: Speci men Type: BLOOD SPECIMENOrdering Facility: [facility] Address: [address] [place] [address] Performed By: #### 5 7021-8 ####[facility]ATORYCLIA [id number] [address] [facility] Lymphocytes/100 WBC (Bld) 3.0 % Normal [facility] Comment on above: Order Comment: Speci men Type: BLOOD SPECIMENOrdering Facility: [facility] Address: [address] [place] [address] Performed By: #### 5 7021-8 ####[facility]ATORYCLIA [id number] [place] [address] [place] MCH (RBC) [Entitic mass] 30.1 pg Normal 26.0-34.0 [facility] Comment on above: Order Comment: Speci men Type: BLOOD SPECIMENOrdering Facility: [facility] Address: [address] [place] [address] Performed By: #### 5 7021-8 ####[facility]ATORYCLIA [id number] [place] [address] [place] MCHC (RBC) [Mass/Vol] 33.2 g/dL Normal 30.5-36.0 [facility] Comment on above: Order Comment: Speci men Type: BLOOD SPECIMENOrdering Facility: [facility] Address: [address] [place] [address] Performed By: #### 5 7021-8 ####[facility]ATORYCLIA [id number] [address] [place] MCV (RBC) [Entitic vol] 90.6 fL Normal 80.0-100.0 [facility] Comment on above: Order Comment: Speci men Type: BLOOD SPECIMENOrdering Facility: [facility] Address: [address] [place] [address] Performed By: #### 5 7021-8 ####[facility]ATORYCLIA [id number] [address] Metamyelocytes/100 WBC (Bld) 3.0 % Normal [facility] Comment on above: Order Comment: Speci men Type: BLOOD SPECIMENOrdering Facility: [facility] Address: [address] [place] [address] Performed By: #### 5 7021-8 ####[facility]ATORYCLIA [id number] [address] Monocytes (Bld) [#/Vol] 0.41 10*3/uL Normal <0.87 [facility] Comment on above: Order Comment: Speci men Type: BLOOD SPECIMENOrdering Facility: [facility] Address: [address] [place] [address] Performed By: #### 5 7021-8 ####[facility]ORYCLIA [id number] [address] Monocytes/100 WBC (Bld) 4.0 % Normal A [facility] Comment on above: Order Comment: Speci men Type: BLOOD SPECIMENOrdering Facility: [facility] Address: [address] [place] [address] Performed By: #### 5 7021-8 ####[facility]ORYCLIA [id number] [address] [place] Neutrophils (Bld) [#/Vol] 9.26 10*3/uL High 1.45-7.50 [facility] Comment on above: Order Comment: Speci men Type: BLOOD SPECIMENOrdering Facility: [facility] Address: [address] [place] [address] Performed By: #### 5 7021-8 ####[facility]ORYCLIA [id number] [address] Neutrophils/100 WBC (Bld) 90.0 % Normal [facility] Comment on above: Order Comment: Speci men Type: BLOOD SPECIMENOrdering Facility: [facility] Address: [address] [place] [address] Performed By: #### 5 7021-8 ####[facility]ORYCLIA [id number] [address] [place] Nucleated RBC (Bld) [#/Vol] 10*3/uL Normal <0.01 [facility] Comment on above: Order Comment: Speci men Type: BLOOD SPECIMENOrdering Facility: [facility] Address: [address] [place] [address] Performed By: #### 5 7021-8 ####[facility]ORYCLIA [id number] [address] Nucleated RBC/100 WBC (Bld) [Ratio] 0.0 /100 WBC Normal [facility] Comment on above: Order Comment: Speci men Type: BLOOD SPECIMENOrdering Facility: [facility] Address: [address] [place] [address] Performed By: #### 5 7021-8 ####[facility]ATORYCLIA [id number] [address] [place] Platelet mean volume (Bld) [Entitic vol] 10.6 fL Normal 9.0-12.7 [facility] Comment on above: Order Comment: Speci men Type: BLOOD SPECIMENOrdering Facility: [facility] Address: [address] [place] [address] Performed By: #### 5 7021-8 ####[facility]ORYCLIA [id number] [address] [place] Platelets (Bld) [#/Vol] 108 10*3/uL Low 150-400 [facility] Comment on above: Order Comment: Speci men Type: BLOOD SPECIMENOrdering Facility: [facility] Address: [address] [place] [address] Result Comment: No c lot detected. Performed By: #### 5 7021-8 ####[facility]ORYCLIA [id number] [address] Platelets Estimate (Bld) [#/Vol] Decreased Normal [facility] Comment on above: Order Comment: Speci men Type: BLOOD SPECIMENOrdering Facility: [facility] Address: [address] [place] [address] Performed By: #### 5 7021-8 ####[facility]ORYCLIA [id number] [address] RBC (Bld) [#/Vol] 3.85 10*6/uL Low 4.20-6.00 [facility] Comment on above: Order Comment: Speci men Type: BLOOD SPECIMENOrdering Facility: [facility] Address: [address] [place] [address] Performed By: #### 5 7021-8 ####[facility]ATORYCLIA [id number] [address] RED CELL MORPH Reviewed: unremarkable Normal [facility] Comment on above: Order Comment: Speci men Type: BLOOD SPECIMENOrdering Facility: [facility] Address: [address] [place] [address] Performed By: #### 5 7021-8 ####[facility]ORYCLIA [id number] [address] WBC (Bld) [#/Vol] 10.29 10*3/uL Normal 3.70-11.00 [facility] Comment on above: Order Comment: Speci men Type: BLOOD SPECIMENOrdering Facility: [facility] Address: [address] [place] [address] Performed By: #### 5 7021-8 ####[facility]ATORYCLIA [id number] [address] ABD/PEL W IVCONon 02-16-[address] ABD/PEL W IVCON * * *Final Report* * * DATE OF EXAM: Feb 16 2025 8:33PM [facility] 0530 - CT ABD/PEL W IVCON / [...] 8. Details above. 9. Follow-up as indicated. Valet Parking Attendant: CECILIA Transcribe Date/Time: Feb 16 2025 10:02P Dictated by : CORBIN PERRY MD This examination was interpreted and the report reviewed and electronically signed by: CORBIN PERRY MD on Feb 16 2025 10:34PM EST 16 (more content not included)... Normal [facility] CT BRAIN WO IVCONon 02-17-20 CT BRAIN WO IVCON * * *Final Report* * * DATE OF EXAM: Feb 16 2025 8:33PM [facility] 0504 - CT BRAIN WO IVCON / [...] involving the major extra or intracranial arteries. Valet Parking Attendant: CECILIA Transcribe Date/Time: Feb 16 2025 9:23P Dictated by : BYRON SRINIVASAN MD This examination was interpreted and the report reviewed and electronically signed by: BYRON SRINIVASAN MD on Feb 16 2025 9:34PM EST [id number] Normal [facility] CT CHEST W IVCONon CT CHEST W IVCON * * *Final Report* * * DATE OF EXAM: Feb 16 2025 8:33PM [facility] 0539 - CT CHEST W IVCON / [...] the gastroesophageal junction and should be advanced. Valet Parking Attendant: PSCKatie Transcribe Date/Time: Feb 16 2025 9:56P Dictated by : ELLIOT ANGELA DO This examination was interpreted and the report reviewed and electronically signed by: ELLIOT ANGELA DO on Feb 16 2025 10:13PM EST [id number] Normal [facility] CTA HEAD W IVCONon CTA HEAD W IVCON * * *Final Report* * * DATE OF EXAM: Feb 16 2025 8:33PM [facility] 0022 - CTA HEAD W IVCON / [...] involving the major extra or intracranial arteries. Valet Parking Attendant: [facility] Transcribe Date/Time: Feb 16 2025 9:23P Dictated by : BYRON SRINIVASAN MD This examination was interpreted and the report reviewed and electronically signed by: BYRON SRINIVASAN MD on Feb 16 2025 9:34PM EST [id number] Normal [facility] CTA NECK W IVCONon 5 CTA NECK W IVCON * * *Final Report* * * DATE OF EXAM: Feb 16 2025 8:33PM [facility] 0024 - CTA NECK W IVCON / [...] involving the major extra or intracranial arteries. Valet Parking Attendant: [facility] Transcribe Date/Time: Feb 16 2025 9:23P Dictated by : BYRON SRINIVASAN MD This examination was interpreted and the report reviewed and electronically signed by: BYRON SRINIVASAN MD on Feb 16 2025 9:34PM EST [id number] N Normal [facility] Comprehensive metabolic 2000 panelon 02-16-2025 Albumin [Mass/Vol] 2.3 g/dL Low 3.9-4.9 [facility] Comment on above: Order Comment: Speci men Type: BLOOD SPECIMENOrdering Facility: [facility] Address: [address] [place] [address] Performed By: #### 2 432-8, ####[facility]ORATORYCLIA [id number] [address] [place] ALP [Catalytic activity/Vol] 286 U/L High 38-113 [facility] Comment on above: Order Comment: Speci men Type: BLOOD SPECIMENOrdering Facility: [facility] Address: [address] [place] [address] Performed By: #### 2 4328, ####[facility]ORYCLIA [id number] [address] [place] ALT With P-5'-P [Catalytic activity/Vol] 17 U/L Normal 10-54 [facility] Comment on above: Order Comment: Speci men Type: BLOOD SPECIMENOrdering Facility: [facility] Address: [address] [place] [address] Performed By: #### 2 4323-05, ####[facility]ORYCLIA [id number] [address] [facility] Anion gap [Moles/Vol] 14 mmol/L Normal 8-15 [facility] Comment on above: Order Comment: Speci men Type: BLOOD SPECIMENOrdering Facility: [facility] Address: [address] [place] [address] Performed By: #### 2 43212-10, ####[facility]ORYCLIA [id number] [address] [place] AST With P-5'-P [Catalytic activity/Vol] 31 U/L Normal 14-40 [facility] Comment on above: Order Comment: Speci men Type: BLOOD SPECIMENOrdering Facility: [facility] Address: [address] [place] [address] Performed By: #### 2 4328, ####[facility] LABORATORYCLIA [id number] [address] [place] Bilirubin [Mass/Vol] 0.9 mg/dL Normal 0.2-1.3 [facility] Comment on above: Order Comment: Speci men Type: BLOOD SPECIMENOrdering Facility: [facility] Address: [address] [place] [address] Performed By: #### 2 8, ####[facility]ATORYCLIA [id number] [place] [address] [place] Calcium [Mass/Vol] 7.7 mg/dL Low 8.5-10.2 [facility] Comment on above: Order Comment: Speci men Type: BLOOD SPECIMENOrdering Facility: [facility] Address: [address] [place] [address] Performed By: #### 2 8, ####[facility] LABORATORYCLIA [id number] [place] [address] [place] Chloride [Moles/Vol] 105 mmol/L Normal 98-107 [facility] Comment on above: Order Comment: Speci men Type: BLOOD SPECIMENOrdering Facility: [facility] Address: [address] [place] [address] Performed By: #### 2 4323-05, ####[facility]ATORYCLIA [id number] [place] [address] [place] CO2 [Moles/Vol] 17 mmol/L Low 22-30 [facility] Comment on above: Order Comment: Speci men Type: BLOOD SPECIMENOrdering Facility: [facility] Address: [address] [place] [address] Performed By: #### 2 4322-8, ####[facility]ORATORYCLIA [id number] [place] [address] [place] Creatinine [Mass/Vol] 2.35 mg/dL High 0.73-1.22 [facility] Comment on above: Order Comment: Speci men Type: BLOOD SPECIMENOrdering Facility: [facility] Address: [address] [place] [address] Performed By: #### 2 4322-8, ####[facility] HOSPITALIA [id number] [place] [address] [place] Creatinine and Glomerular filtration rate.predicted panel (S/P/Bld) 30 mL/min/1.73m??? Low >=60 [facility] Comment on above: Order Comment: Jg valdez Type: BLOOD SPECIMENOrdering Facility: [facility] Address: [address] [place] [address] Result Comment: Leena mated Glomerular Filtration Rate [...] actual GFR. Performed By: #### 2 4323-8, 14824-7 ####[facility] HOSPITALIA [id number] [place] [address] [place] Glucose [Mass/Vol] 131 mg/dL High 74-99 [facility] Comment on above: Order Comment: Jg valdez Type: BLOOD SPECIMENOrdering Facility: [facility] Address: [address] [place] [address] Result Comment: The [place] Diabetes Association (ADA) provides guidance for cutoff [...] Standards of Medical Care in Diabetes 2016, [place] [employer]. Diabetes Care. 2016.39(Suppl 1). Performed By: #### 2 4323-8, 10288-5 ####[facility] HOSPITALIA [id number] [place] [address] [place] Potassium [Moles/Vol] 4.4 mmol/L Normal 3.7-5.1 [facility] Comment on above: Order Comment: Speci men Type: BLOOD SPECIMENOrdering Facility: [facility] Address: [address] [place] [address] Performed By: #### 2 4323-8, ####[facility]ORATORYCLIA [id number] [place] [address] [place] Protein [Mass/Vol] 5.9 g/dL Low 6.3-8.0 [facility] Comment on above: Order Comment: Speci men Type: BLOOD SPECIMENOrdering Facility: [facility] Address: [address] [place] [address] Performed By: #### 2 4323-8, ####[facility] LABORATORYCLIA [id number] [address] STATES [facility] Sodium [Moles/Vol] 136 mmol/L Normal 136-144 [facility] Comment on above: Order Comment: Speci men Type: BLOOD SPECIMENOrdering Facility: [facility] Address: [address] [place] [address] Performed By: #### 2 4323-8, ####[facility]ATORYCLIA [id number] [address] [place] Urea nitrogen [Mass/Vol] 33 mg/dL High 9-24 [facility] Comment on above: Order Comment: Speci men Type: BLOOD SPECIMENOrdering Facility: [facility] Address: [address] [place] [address] Performed By: #### 2 4323-8, ####[facility] LABORATORYCLIA [id number] [place] [id number] [place] ECG COMPLETEon 02-16-2025 ECG COMPLETE Ventricular Rate : 120 BPM Atrial Rate : 120 BPM P-R Interval : 152 ms QRS Duration : 88 ms Q-T Interval : 306 ms QTC Calculation(Bazett) : 432 ms Calculated P Casscoe : 35 degrees Calculated R Casscoe : 6 degrees Calculated T Casscoe : 45 degrees SINUS TACHYCARDIA POSSIBLE INFERIOR INFARCT , AGE UNDETERMINED CANNOT RULE OUT ANTERIOR INFARCT , AGE UNDETERMINED ABNORMAL ECG NO PREVIOUS ECGS AVAILABLE Confirmed by MAYKEL MANJARREZ MD ([id number]) on 02/20/2025 2:34:23 PM NAME : ANMOL REYNOLDS PID : [id number] : 1960 Gender : Male Race : ORD : [id number] Procedure Date : Feb 16 2025 19:16:55 Edit Date : Feb 20 2025 14:34:24 Diagnosis: SINUS TACHYCARDIA POSSIBLE INFERIOR INFARCT , AGE UNDETERMINED CANNOT RULE OUT ANTERIOR INFARCT , AGE UNDETERMINED ABNORMAL ECG NO PREVIOUS ECGS AVAILABLE Confirmed by MAYKEL MANJARREZ MD ([id number]) on 02/20/2025 2:34:23 PM Test Reason : Chest Pain Location : 4 : [facility] EM Overread By : MAYKEL MANJARREZ MD Edited By : MAYKEL MANJARREZ MD Referred By : , Acquired by : LELAND AUGUST [facility] ED NOTEon 02-16-2025 ED NOTE HNO ID: [id number] Author: ROZ MIKE RN Service: ? Author Type: Registered Nurse Type: ED Notes Filed: 02/16/2025 23:23 Note Text: Icu resident at bedside talked with this RN about NG tube, this RN told to leave it in place for this time until further notice as it is not needed for anything significant at this time. Normal [facility] ED NOTE HNO ID: [id number] Author: ROZ MIKE RN Service: ? Author Type: Registered Nurse Type: ED Notes Filed: 02/16/2025 21:56 Note Text: NG in right nare advanced as much as possible, per KUB, the NG is still not in stomach. MICU resident to assess when at bedside. Normal [facility] ED NOTE HNO ID: [id number] Author: ROZ MIKE RN Service: ? Author Type: Registered Nurse Type: ED Notes Filed: 02/16/2025 22:06 Note Text: Mepilex applied to coccyx to prevent further skin berakdown. Normal [facility] ED NOTE HNO ID: [id number] Author: ROZ MIKE RN Service: ? Author Type: Registered Nurse Type: ED Notes Filed: 02/16/2025 19:46 Note Text: Xray called at this time to confirm placement. [facility] ED NOTE HNO ID: [id number] Author: ROZ MIKE RN Service: ? Author Type: Registered Nurse Type: ED Notes Filed: 02/16/2025 19:44 Note Text: 100 mcg of fentanyl being administered at this time by RN Maribel Escamilla [facility] ED NOTE HNO ID: [id number] Author: ROZ MIKE RN Service: ? Author Type: Registered Nurse Type: ED Notes Filed: 02/16/2025 19:44 Note Text: Oxygen improved to 97%. [facility] ED NOTE HNO ID: [id number] Author: ROZ MIKE RN Service: ? Author Type: Registered Nurse Type: ED Notes Filed: 02/16/2025 19:44 Note Text: 7.5 tube placed at this time, bilateral breath sounds auscultated, ETCO2 31. 24 at the teeth. Pt oxygen 71% and HR 132. [facility] ED NOTE HNO ID: [id number] Author: ROZ MIKE RN Service: ? Author Type: Registered Nurse Type: ED Notes Filed: 02/16/2025 19:40 Note Text: 100 of rocuronium given at this time. [facility] ED NOTE HNO ID: [id number] Author: ROZ MIKE RN Service: ? Author Type: Registered Nurse Type: ED Notes Filed: 02/16/2025 19:39 Note Text: 30 of etomidate given at this time. [facility] ED NOTE HNO ID: [id number] Author: ROZ MIKE RN Service: ? Author Type: Registered Nurse Type: ED Notes Filed: 02/16/2025 19:38 Note Text: Levo tubing was clamped, levo decreased to 7 again at this time. [facility] ED NOTE HNO ID: [id number] Author: ROZ MIKE RN Service: ? Author Type: Registered Nurse Type: ED Notes Filed: 02/16/2025 19:36 Note Text: Preparing to intubate patient, using 30 of etomidate for intubation. [facility] ED NOTE HNO ID: [id number] Author: ROZ MIKE RN Service: ? Author Type: Registered Nurse Type: ED Notes Filed: 02/16/2025 19:36 Note Text: Levo increased to 10 at this time [facility] ED NOTE HNO ID: [id number] Author: ROZ MIKE RN Service: ? Author Type: Registered Nurse Type: ED Notes Filed: 02/16/2025 19:32 Note Text: Levophed started at 7 at this time. [facility] ED NOTE HNO ID: [id number] Author: ROZ MIKE RN Service: ? Author Type: Registered Nurse Type: ED Notes Filed: 02/16/2025 19:32 Note Text: Patient opening eyes at this time, but not following commands at this time. [facility] ED NOTE HNO ID: [id number] Author: ROZ MIKE RN Service: ? Author Type: Registered Nurse Type: ED Notes Filed: 02/16/2025 19:22 Note Text: Line placed in RAC was placed in artery, line removed. Pressure applied, no medications were administered through this access point. [facility] ED NOTE HNO ID: [id number] Author: ROZ MIKE RN Service: ? Author Type: Registered Nurse Type: ED Notes Filed: 02/16/2025 19:16 Note Text: Patient [facility] from the [facility] [place] unresponsive. NO responsive to verbal stimuli, only to painful. Pt LKW was 1700, found unresponsive. [facility] ED NOTE HNO ID: [id number] Author: ROZ MIKE RN Service: ? Author Type: Registered Nurse Type: ED Notes Filed: 02/16/2025 19:15 Note Text: [facility] ED NOTE HNO ID: [id number] Author: ROZ MIKE RN Service: ? Author Type: Registered Nurse Type: ED Notes Filed: 02/16/2025 19:25 Note Text: 2L up at this time. 1 L LR and 1L NS. Normal [facility] ED NOTE HNO ID: [id number] Author: ROZ MIKE RN Service: ? Author Type: Registered Nurse Type: ED Notes Filed: 02/16/2025 19:36 Note Text: Patient placed on zoll pads at this time Normal [facility] ED PROV NOTEon 02-16-2025 ED PROV NOTE HNO ID: [id number] Author: KATHRIN MEHTA MD Service: Emergency Medicine [...] 16, 20251952 Patient here via EMS from [facility] for evaluation of hypotension and altered mental [...] History Patient presents with: Unresponsive: Pt from [facility] for being found unresponsive. Pt normally AANDOx4, but had a spinal cord injury resulting in need for nursing facility. Pt LKW was 1700 today. Arrives only arousable to pain, unable to follow commands. Arrives pale, on NRB, hypotensive, and tachycardic. Patient is a 64-year-old male who presents from [facility] for being unresponsive. Patient is a history [...] PAST SURGICAL (more content not included)... Normal [facility] HISTORY PHYSICALon HISTORY PHYSICAL HNO ID: [id number] Author: HOWARD GAMA MD Service: Critical Care Author Type: Physician Type: H&P Filed: 02/17/2025 02:44 Note Text: [facility] STAFF PHYSICIAN NOTE OF PERSONAL INVOLVEMENT [...] with extensive medical hx who presented from [facility] for AMS. In the ED, was obtunded [...] [facility] DATE of SERVICE: 02/16/2025 [facility] HISTORY PHYSICAL HNO ID: [id number] Author: HOWARD GAMA MD Service: Critical Care [...] intubation. The patient initially presented to [facility] ED on February 16, 2025 after [facility], last known well 1700 today. ED [...] Lactate (POCT) 2.4 ! UA: 02/16/2025 Color [place] ! Clarity Dense Turbid ! Glucose, Urine Negative Bilirubin, Urine Negative Ketones, Urine Negative Specific [place], Ur 1.037 (H) Hemoglobin/Blood,Ur 3+ ! pH, [...] 1L NS @ 1915 1L LR @ 1915 Norepinephrine gtt @ 1932 2 g Ceftriaxone @ 1955 Escalated to [...] Neuropathy N (more content not included)... Normal [facility] Magnesium SerPl-mCncon 02-16 Magnesium [Mass/Vol] 1.6 mg/dL Low 1.7-2.3 [facility] Comment on above: Order Comment: Speci men Type: BLOOD SPECIMENOrdering Facility: [facility] Address: [address] [place] [address] Performed By: #### 2 4323-8, 58377-5 ####[facility]ORATORYCLIA [id number] [address] Urinalysis complete panel (U )on 02-16-2025 Bacteria LM.HPF (Urine sed) [#/Area] Many Abnormal None Seen [facility] Comment on above: Order Comment: Speci men Type: URINE SPECIMENOrdering Facility: [facility] Address: [address] [place] [address] Performed By: #### 2 4356-8, 630-4 ####[facility]ORATORYCLIA [id number] [address] [place] OF [facility] Bilirubin Ql (U) Negative Normal Negative [facility] Comment on above: Order Comment: Speci men Type: URINE SPECIMENOrdering Facility: [facility] Address: [address] [place] [address] Performed By: #### 2 4356-8, 630-4 ####[facility]ORATORYCLIA [id number] [address] [place] Clarity (Unsp spec) Dense Turbid Abnormal Clear [facility] Comment on above: Order Comment: Speci men Type: URINE SPECIMENOrdering Facility: [facility] Address: [address] [place] [address] Performed By: #### 2 4356-8, 630-4 ####[facility]ORATORYCLIA [id number] [address] [place] Color (U) [place] Abnormal yellow [facility] Comment on above: Order Comment: Speci men Type: URINE SPECIMENOrdering Facility: [facility] Address: [address] [place] [address] Performed By: #### 2 4356-8, 630-4 ####[facility]ORATORYCLIA [id number] [address] Epithelial cells LM.HPF (Urine sed) [#/Area] Moderate Abnormal None Seen [facility] Comment on above: Order Comment: Speci men Type: URINE SPECIMENOrdering Facility: [facility] Address: [address] [place] [address] Performed By: #### 2 4356-8, 630-4 ####[facility]ORYCLIA [id number] [address] Glucose Test strip (U) [Mass/Vol] Negative Normal Trace, Negative [facility] Comment on above: Order Comment: Speci men Type: URINE SPECIMENOrdering Facility: [facility] Address: [address] [place] [address] Performed By: #### 2 4356, 4 ####[facility]ORATORYCLIA [id number] [place] [address] [place] Hemoglobin Ql (U) 3+ Abnormal Negative, Trace [facility] Comment on above: Order Comment: Speci men Type: URINE SPECIMENOrdering Facility: [facility] Address: [address] [place] [address] Performed By: #### 2 4356-8, 4 ####[facility]ORATORYCLIA [id number] [address] [place] Ketones Ql (U) Negative Normal Negative, Trace [facility] Comment on above: Order Comment: Speci men Type: URINE SPECIMENOrdering Facility: [facility] Address: [address] [place] [address] Performed By: #### 2 4356-8, 630-4 ####[facility]ATORYCLIA [id number] [place] [address] [place] Leukocyte esterase Test strip Ql (U) 500 Da/uL Abnormal Negative, 25 Da/uL [facility] Comment on above: Order Comment: Speci men Type: URINE SPECIMENOrdering Facility: [facility] Address: [address] [place] [address] Performed By: #### 2 4356-8, 630-4 ####[facility]ATORYCLIA [id number] [address] [place] Nitrite Ql (U) Negative Normal Negative [facility] Comment on above: Order Comment: Speci men Type: URINE SPECIMENOrdering Facility: [facility] Address: [address] [place] [address] Performed By: #### 2 4356-8, 630-4 ####[facility]ITALCLIA [id number] [address] [place] pH (U) 6.5 [pH] Normal 5.0-8.0 [facility] Comment on above: Order Comment: Speci men Type: URINE SPECIMENOrdering Facility: [facility] Address: [address] [place] [address] Performed By: #### 2 4356-8, 630-4 ####[facility]PITALCLIA [id number] [address] [place] Protein (U) [Mass/Vol] 2+ Abnormal Trace , Negative [facility] Comment on above: Order Comment: Speci men Type: URINE SPECIMENOrdering Facility: [facility] Address: [address] [place] [address] Performed By: #### 2 4356-8, 630-4 ####[facility]ATORYCLIA [id number] [address] [place] RBC LM.HPF (Urine sed) [#/Area] /[HPF] Abnormal 0-3 /HPF [facility] Comment on above: Order Comment: Speci men Type: URINE SPECIMENOrdering Facility: [facility] Address: [address] [place] [address] Performed By: #### 2 4356-8, 630-4 ####[facility]ATORYCLIA [id number] [address] Specific gravity (U) [Rel density] 1.037 High 1.005-1.030 [facility] Comment on above: Order Comment: Speci men Type: URINE SPECIMENOrdering Facility: [facility] Address: [address] [place] [address] Performed By: #### 2 4356-8, 630-4 ####[facility]ORYCLIA [id number] [address] Urobilinogen Ql (U) Normal Normal Normal [facility] Comment on above: Order Comment: Speci men Type: URINE SPECIMENOrdering Facility: [facility] Address: [address] [place] [address] Performed By: #### 2 4356-8, 630-4 ####[facility]ATORYCLIA [id number] [address] [place] WBC LM.HPF (Urine sed) [#/Area] /[HPF] Abnormal 0-5 /HPF [facility] Comment on above: Order Comment: Speci men Type: URINE SPECIMENOrdering Facility: [facility] Address: [address] [place] [address] Performed By: #### 2 4356-8, 630-4 ####[facility]ORATORYCLIA [id number] [address] [place] XR ABDOMEN 1V SUPINEon 02-16 [...] EKG leads. No dilated gas-filled bowel loops. Valet Parking Attendant: CECILIA Transcribe Date/Time: Feb 16 2025 10:58P Dictated by : LAURYN ELLINGTON MD This examination was interpreted and the report reviewed and electronically signed by: LAURYN ELLINGTON MD on Feb 16 2025 10:59PM EST [id number] Normal [facility] XR ABDOMEN 1V SUPINE * * *Final [...] abundance of colonic stool. Other details above. Valet Parking Attendant: PSCB Transcribe Date/Time: Feb 16 2025 9:11P Dictated by : KELSY CARDOZA MD This examination was interpreted and the report reviewed and electronically signed by: KELSY CARDOZA MD on Feb 16 2025 9:14PM EST [id number] Normal [facility] XR CHEST 1V FRONTALon 2024 XR CHEST [...] in the distal esophagus, suggest further advancement. Valet Parking Attendant: CECILIA Transcribe Date/Time: Feb 16 2025 8:45P Dictated by : PATY US MD This examination was interpreted and the report reviewed and electronically signed by: PATY US MD on Feb 16 2025 8:47PM EST [id number] Normal [facility] Bilirubin Test strip Ql (U)O rdered By: Tab Dupont on 02-15-2025 Bilirubin Ql (U) Negative Negative [facility] Ketones Test strip Ql (U)Ord ered By: Tab Dupont on 02-15-2025 Ketones Ql (U) Negative Negative [facility] Microscopic analysis of urin e for red blood cells (RBC)Ordered By: Tab Dupont on 02-15-2025 Microscopic analysis of urine for red blood cells (RBC) 10-25 SEEN /hpf 0-5 [facility] Mucus LM Ql (Urine sed)Order ed By: Tab Dupont on 02-15-2025 Mucus Ql (Urine sed) 0 SEEN /hpf [facility] Nitrite Test strip Ql (U)Ord ered By: Tab Dupont on 02-15-2025 Nitrite Ql (U) Positive High Negative [facility] Protein Test strip Ql (U)Ord ered By: Tab Dupont on 02-15-2025 Protein Ql (U) 100 mg/dl High Negative [facility] Squamous epithelial cells de tection in urine sediment by light microscopyOrdered By: Tab Dupont on 05-14-2025 Epithelial cells.squamous LM Ql (Urine sed) 0 SEEN /hpf 0-5 [facility] Urinalysis, Completeon 02-15 RBC 10-25 SEEN Normal 0-5 [facility] Comment on above: Order Comment: 301.2 Performed By: #### L 100.0500, L500.4050, L501.6710, L101.9900 #### [facility] [address] [place], [address] BACTERIA 2+ /hpf Normal None Seen [facility] Comment on above: Order Comment: 301.2 Performed By: #### L 100.0500, L500.4050, L501.6710, L101.9900 #### [facility] [address] [place], [address] WBC 25-50 SEEN Normal [address] [place] [address] Comment on above: Order Comment: 301.2 Performed By: #### L 100.0500, L500.4050, L501.6710, L101.9900 #### [facility] [address] [place], [address] EPI,SQUAMOUS 0 SEEN Normal [address] [place] [address] Comment on above: Order Comment: 301.2 Performed By: #### L 100.0500, L500.4050, L501.6710, L101.9900 #### [facility] [address] [place], [address] Mucus Ql (Urine sed) 0 SEEN Normal [facility] Comment on above: Order Comment: 301.2 Performed By: #### L 100.0500, L500.4050, L501.6710, L101.9900 #### [facility] [address] [place], [address] Urine clarityOrdered By: Regino Dupont on 02-15-2025 Clarity (U) Sl. Cloudy Clear [facility] Urine color determinationOrd ered By: Tab Dupont on 02-15-2025 Color (U) Yellow Yellow [facility] Urine cultureOrdered By: Regino Dupont on 02-15-2025 Bacteria identified Cx Nom (U) Citrobacter freundii Abnormal [facility] Bacteria identified Cx Nom (U) Providencia stuartii Abnormal [facility] Bacteria identified Cx Nom (U) Proteus mirabilis Abnormal [facility] Bacteria identified Cx Nom (U) Enterococcus faecalis Abnormal [facility] Urine glucose detectionOrder ed By: Tab Dupont on 02-15-2025 Glucose Ql (U) Normal mg/dl Normal [facility] Urine leukocyte esterase det ection by dipstickOrdered By: Tab Dupont on 02-15-2025 Leukocyte esterase Test strip Ql (U) 500 /ul High Negative [facility] Urine pHOrdered By: Tab cordova on 02-15-2025 pH (U) 6.5 [pH] 5.0 - 8.0 [facility] Urine sediment bacteria coun t by microscopy (number/high power field)Ordered By: Tab Dupont on 02-15-2025 Bacteria LM.HPF (Urine sed) [#/Area] 2 /[HPF] None Seen [facility] Urine specific gravity measu rementOrdered By: Tab Dupont on 02-15-2025 Specific gravity (U) [Rel density] 1.010 1.002-1.030 [facility] Urine urobilinogen measureme ntOrdered By: Tab Dupont on 02-15-2025 Urobilinogen Ql (U) Normal mg/dl Normal [facility] White blood cell countOrdere d By: Tab Dupont on 02-15-2025 White blood cell count 25-50 SEEN /hpf 0-5 [facility] CNOVon 01-31-2025 CNOV Office Visit (PLWDMR ) ANMOL REYNOLDS ([id number]) 1960 [place] Date Time Provider Department 01/31/25 1:30 PM MILAD GOODSON PLWDMR During your visit today, we recorded the following information about you: Temperature Pulse Respiration Blood pressure 98.6 degrees 80/minute 18/minute 136/90 Rj Brooks RN 01/31/2025 2:59 PM Addendum Nursing Documentation Pertinent Medical History: paraplegia, MRSA, osteomyelitis, UTI, DM2, neuropathy, pyelonephritis, Wound Etiology according to patient: sacrum wound has had for four years per pt Patient arrived via: self in motorized wheelchair Home Care Company/Nursing Facility: [facility] Consent captured for debridement per (Provider) and good until Special Instructions (for example, patient stands at the bedside for exam/dressing): bed Anticoagulant Therapy: aspirin Living Situation (ie... Apartment, house, FPC): [facility] Who lives with patient: facility Who will [...] BY PROVIDER: Anesthetic Used: N/A applied per clerical secretary # 1 AND 2 Other procedure: Specimen [...] alginate AG Covered and secured with: 4x4 [employer] Other: COMPRESSION: N/A DME: [employer] order date __ DME: [employer] , PH: [phone] SPECIAL NEEDS: Coordination of care N/A Emotional support N/A OR set-up N/A Stoker Installation Mechanic N/A Incontinence needs N/A DISCHARGED in stable condition to: facility in motorized wheelchair PLAN/ORDERS: - [facility] to see Milad Goodson MD in 6 weeks. - Blood work ordered please go to any [facility] lab. - Please send patient with medication list at next appointment. - Continue aggressive nutritional support to assist wound healing - CAT Scans AND MRI need to be scheduled through [facility]. Call [phone].(If applicable) EDUCATION: The patient/family was instructed how [...] the p (more content not included)... [facility] Anion gap in Serum or Plasma Ordered By: Tab Dupont on 01-09-2025 Anion gap [Moles/Vol] 12 mmol/L 02-16 [facility] BUN/creatinine ratioOrdered By: Tab Dupont on 01-09-2025 Urea nitrogen/Creatinine [Mass ratio] 17.9 mg/mg 07-24 [facility] Basic Metabolic Profile (BMP )on 01-09-2025 BUN/CRE 17.9 RATIO Normal 07-24 [facility] Comment on above: Order Comment: 301.2 Performed By: #### L 100.0500, L500.4050, L501.6710, L101.9900 #### [facility] [address] [place], [place], [address] Calcium [Mass/Vol] 8.7 mg/dL Normal 7.6-11.0 [facility] Comment on above: Order Comment: 301.2 Performed By: #### L 100.0500, L500.4050, L501.6710, L101.9900 #### [facility] [address] [place], [address] Chloride [Moles/Vol] 110 mmol/L High 98-[address] [facility] Comment on above: Order Comment: 301.2 Performed By: #### L 100.0500, L500.4050, L501.6710, L101.9900 #### [facility] [address] [place], [address] CO2 [Moles/Vol] 19.2 mmol/L Low 21.0-32.0 [facility] Comment on above: Order Comment: 301.2 Performed By: #### L 100.0500, L500.4050, L501.6710, L101.9900 #### [facility] [address] [place], [address] Creatinine [Mass/Vol] 0.42 mg/dL Low 0.70-1.20 [facility] Comment on above: Order Comment: 301.2 Performed By: #### L 100.0500, L500.4050, L501.6710, L101.9900 #### [facility] [address] [place], [address] GAP 12 Normal 5-15 [facility] Comment on above: Order Comment: 301.2 Performed By: #### L 100.0500, L500.4050, L501.6710, L101.9900 #### [facility] [address] [place], [address] GFR/1.73 sq M.predicted among non-blacks MDRD (S/P/Bld) [Vol rate/Area] 121 mL/min/{1.73_m2} Normal >60 [facility] Comment on above: Order Comment: 301.2 Result Comment: mL/m in/1.73m2 CKD-EPI Creatinine Equation (2020) Performed By: #### L 100.0500, L500.4050, L501.6710, L101.9900 #### [facility] [address] [place], [address] Glucose [Mass/Vol] 120 mg/dL High 70-99 [facility] Comment on above: Order Comment: 301.2 Performed By: #### L 100.0500, L500.4050, L501.6710, L101.9900 #### [facility] [address] [place], [address] Potassium [Moles/Vol] 4.0 mmol/L Normal 3.3-5.1 [facility] Comment on above: Order Comment: 301.2 Result Comment: Hemo lysis present, Results??could be affected. ?? Performed By: #### L 100.0500, L500.4050, L501.6710, L101.9900 #### [facility] [address] [place], [address] Sodium [Moles/Vol] 141 mmol/L Normal 133-145 [facility] Comment on above: Order Comment: 301.2 Performed By: #### L 100.0500, L500.4050, L501.6710, L101.9900 #### [facility] [address] [place], [address] Urea nitrogen [Mass/Vol] 8 mg/dL Normal 4-19 [facility] Comment on above: Order Comment: 301.2 Performed By: #### L 100.0500, L500.4050, L501.6710, L101.9900 #### [facility] [address] [place], [address] CBC-Complete Blood Cnt No Di ffon 01-09-2025 Erythrocyte distribution width (RBC) [Ratio] 13.9 % Normal 11.6-14.6 [facility] Comment on above: Order Comment: 301.2 Performed By: #### L 100.0500, L500.4050, L501.6710, L101.9900 #### [facility] [address] [place], [address] Hematocrit (Bld) [Volume fraction] 39.3 % Low 40-54 [facility] Comment on above: Order Comment: 301.2 Performed By: #### L 100.0500, L500.4050, L501.6710, L101.9900 #### [facility] [address] [place], [address] Hemoglobin (Bld) [Mass/Vol] 13.1 g/dL Normal 13.0-16.5 [facility] Comment on above: Order Comment: 301.2 Performed By: #### L 100.0500, L500.4050, L501.6710, L101.9900 #### [facility] [address] [place], [address] MCH (RBC) [Entitic mass] 30.9 pg Normal 27.0-32.0 [facility] Comment on above: Order Comment: 301.2 Performed By: #### L 100.0500, L500.4050, L501.6710, L101.9900 #### [facility] [address] [place], [address] MCHC (RBC) [Mass/Vol] 33.3 g/dL Normal 32-36 [facility] Comment on above: Order Comment: 301.2 Performed By: #### L 100.0500, L500.4050, L501.6710, L101.9900 #### [facility] [address] [place], [address] MCV (RBC) [Entitic vol] 92.7 fL Normal 80-94 [facility] Comment on above: Order Comment: 301.2 Performed By: #### L 100.0500, L500.4050, L501.6710, L101.9900 #### [facility] [address] [place], [address] Platelet mean volume (Bld) [Entitic vol] 11.1 fL Normal 6.2-12.0 [facility] Comment on above: Order Comment: 301.2 Performed By: #### L 100.0500, L500.4050, L501.6710, L101.9900 #### [facility] [address] [place], [address] Platelets (Bld) [#/Vol] 255 10*3/uL Normal 150-450 [facility] Comment on above: Order Comment: 301.2 Performed By: #### L 100.0500, L500.4050, L501.6710, L101.9900 #### [facility] [address] [place], [address] RBC (Bld) [#/Vol] 4.24 10*6/uL Low 4.6-6.2 [facility] Comment on above: Order Comment: 301.2 Performed By: #### L 100.0500, L500.4050, L501.6710, L101.9900 #### [facility] [address] [place], [address] RDW SD 47.3 fl High 35.1-43.9 [facility] Comment on above: Order Comment: 301.2 Performed By: #### L 100.0500, L500.4050, L501.6710, L101.9900 #### [facility] [address] [place], [address] WBC (Bld) [#/Vol] 7.1 10*3/uL Normal 4.4-11.0 [facility] Comment on above: Order Comment: 301.2 Performed By: #### L 100.0500, L500.4050, L501.6710, L101.9900 #### [facility] [address] [place], [address] Carbon dioxide, total [Moles /volume] in Central venous bloodOrdered By: Tab Dupont on 01-09-2025 CO2 [Moles/Vol] 19.2 mmol/L Low 21.0-32.0 [facility] Chloride assayOrdered By: Vinh Lehman on 01-09-2025 Chloride [Moles/Vol] 110 mmol/L High 98-108 [facility] Erythrocyte distribution wid th ratioOrdered By: Tab Dupont on 01-09-2025 Erythrocyte distribution width (RBC) [Ratio] 13.9 % 11.6-14.6 [facility] Erythrocyte distribution wid th standard deviationOrdered By: Tab Dupont on 01-09-2025 Erythrocyte distribution width (RBC) [Ratio] 47.3 fl High 35.1-43.9 [facility] Glomerular filtration rate ( GFR) estimation/1.73 sq m using serum, plasma, or whole bOrdered By: Tab Dupont on 01-09-2025 GFR/1.73 sq M.predicted among non-blacks MDRD (S/P/Bld) [Vol rate/Area] 121 mL/min/{1.73_m2} >60 [facility] Comment on above: mL/min/1.73m2 CKD-EP I Creatinine Equation (2020) Hematocrit Auto (Bld) [Volum e fraction]Ordered By: Tab Dupont on 01-09-2025 Hematocrit (Bld) [Volume fraction] 39.3 % Low 40-54 [facility] Hemoglobin measurementOrdere d By: Tab Dupont on 01-09-2025 Hemoglobin (Bld) [Mass/Vol] 13.1 g/dL 13.0-16.5 [facility] MCV (mean corpuscular volume ) determinationOrdered By: Tab Dupont on 01-09-2025 MCV (RBC) [Entitic vol] 92.7 fL 80-94 [facility] Mean corpuscular hemoglobin (MCH) determinationOrdered By: Tab Dupont on 01-09-2025 MCH (RBC) [Entitic mass] 30.9 pg 27.0-32.0 [facility] Mean corpuscular hemoglobin concentration (MCHC) determinationOrdered By: Tab Dupont on 01-09-2025 MCHC (RBC) [Mass/Vol] 33.3 g/dL 32-36 [facility] Mean platelet volume determi nationOrdered By: Tab Dupont on 01-09-2025 Platelet mean volume (Bld) [Entitic vol] 11.1 fL 6.2-12.0 [facility] Platelet countOrdered By: Vinh Lehman on 01-09-2025 Platelets (Bld) [#/Vol] 255 10*3/uL 150-450 [facility] Potassium measurement (mass/ volume)Ordered By: Tab Dupont on 01-09-2025 Potassium (Unsp spec) [Mass/Vol] 4.0 mmol/L 3.3-5.1 [facility] Comment on above: Hemolysis present, R esults could be affected. RBC Auto (Bld) [#/Vol]Ordere d By: Tab Dupont on 01-09-2025 RBC (Bld) [#/Vol] 4.24 10*6/uL Low 4.6-6.2 [facility] Serum creatinine measurement (mass/volume)Ordered By: Tab Dupont on 01-09-2025 Creatinine [Mass/Vol] 0.42 mg/dL Low 0.70-1.20 [facility] Serum glucose measurement (m ass/volume)Ordered By: Tab Dupont on 01-09-2025 Glucose [Mass/Vol] 120 mg/dL High 70-99 [facility] Serum or plasma calcium randall urement (mass/volume)Ordered By: Tab Dupont on 01-09-2025 Calcium [Mass/Vol] 8.7 mg/dL 7.6-11.0 [facility] Serum or plasma urea nitroge n measurement (mass/volume)Ordered By: Tab Dupont on 01-09-2025 Urea nitrogen [Mass/Vol] 8 mg/dL 4-19 [facility] Sodium levelOrdered By: Omar Dupont on 01-09-2025 Sodium [Moles/Vol] 141 mmol/L 133-145 [facility] White blood cell (WBC) count Ordered By: Tab Dupont on 01-09-2025 WBC (Bld) [#/Vol] 7.1 10*3/uL 4.4-11.0 [facility] MRI SACRUM/COCCYX WO/W IVCON on 01-04-2025 MRI SACRUM/COCCYX WO/W IVCON * * *Final Report* * * DATE OF EXAM: Jan 04 2025 9:45AM [facility] 0236 - MRI SACRUM/COCCYX WO/W [...] the adjacent S5 segment of the sacrum. 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 BUN/creatinine ratioOrdered By: Tab Dupont on 12-07-2024 Urea nitrogen/Creatinine [Mass ratio] 20.1 mg/mg High 10-20 [facility] Basic Metabolic Profile (BMP )on 12-07-2024 BUN/CRE 20.1 RATIO High - [facility] Comment on above: Order Comment: 301.2 Performed By: #### L 100.0500, L500.4050, L501.6710, L101.9900 #### [facility] [address] [place], [address] Calcium [Mass/Vol] 8.6 mg/dL Normal 7.6-11.0 [facility] Comment on above: Order Comment: 301.2 Performed By: #### L 100.0500, L500.4050, L501.6710, L101.9900 #### [facility] [address] [place], [address] Chloride [Moles/Vol] 104 mmol/L Normal 98-[address] [facility] Comment on above: Order Comment: 301.2 Performed By: #### L 100.0500, L500.4050, L501.6710, L101.9900 #### [facility] [address] [place], [address] CO2 [Moles/Vol] 21.3 mmol/L Normal 21.0-32.0 [facility] Comment on above: Order Comment: 301.2 Performed By: #### L 100.0500, L500.4050, L501.6710, L101.9900 #### [facility] [address] [place], [address] Creatinine [Mass/Vol] 0.47 mg/dL Low 0.70-1.20 [facility] Comment on above: Order Comment: 301.2 Performed By: #### L 100.0500, L500.4050, L501.6710, L101.9900 #### [facility] [address] [place], [address] GAP 10 Normal 5-15 [facility] Comment on above: Order Comment: 301.2 Performed By: #### L 100.0500, L500.4050, L501.6710, L101.9900 #### [facility] [address] [place], [address] GFR/1.73 sq M.predicted among non-blacks MDRD (S/P/Bld) [Vol rate/Area] 117 mL/min/{1.73_m2} Normal >60 [facility] Comment on above: Order Comment: 301.2 Result Comment: mL/m in/1.73m2 CKD-EPI Creatinine Equation (2020) Performed By: #### L 100.0500, L500.4050, L501.6710, L101.9900 #### [facility] [address] [place], [address] Glucose [Mass/Vol] 194 mg/dL High 70-99 [facility] Comment on above: Order Comment: 301.2 Performed By: #### L 100.0500, L500.4050, L501.6710, L101.9900 #### [facility] [address] [place], [address] Potassium [Moles/Vol] 4.3 mmol/L Normal 3.3-5.1 [facility] Comment on above: Order Comment: 301.2 Performed By: #### L 100.0500, L500.4050, L501.6710, L101.9900 #### [facility] [address] [place], [address] Sodium [Moles/Vol] 136 mmol/L Normal 133-145 [facility] Comment on above: Order Comment: 301.2 Performed By: #### L 100.0500, L500.4050, L501.6710, L101.9900 #### [facility] [address] [place], [address] Urea nitrogen [Mass/Vol] 9 mg/dL Normal 4-19 [facility] Comment on above: Order Comment: 301.2 Performed By: #### L 100.0500, L500.4050, L501.6710, L101.9900 #### [facility] [address] [place], [address] CBC-Complete Blood Cnt No Di ffon 12-07-2024 Erythrocyte distribution width (RBC) [Ratio] 14.0 % Normal 11.6-14.6 [facility] Comment on above: Order Comment: 301.2 Performed By: #### L 100.0500, L500.4050, L501.6710, L101.9900 #### [facility] [address] [place], [address] Hematocrit (Bld) [Volume fraction] 38.2 % Low 40-54 [facility] Comment on above: Order Comment: 301.2 Performed By: #### L 100.0500, L500.4050, L501.6710, L101.9900 #### [facility] [address] [place], [address] Hemoglobin (Bld) [Mass/Vol] 12.8 g/dL Low 13.0-16.5 [facility] Comment on above: Order Comment: 301.2 Performed By: #### L 100.0500, L500.4050, L501.6710, L101.9900 #### [facility] [address] [place], [address] MCH (RBC) [Entitic mass] 30.9 pg Normal 27.0-32.0 [facility] Comment on above: Order Comment: 301.2 Performed By: #### L 100.0500, L500.4050, L501.6710, L101.9900 #### [facility] [address] [place], [address] MCHC (RBC) [Mass/Vol] 33.5 g/dL Normal 32-36 [facility] Comment on above: Order Comment: 301.2 Performed By: #### L 100.0500, L500.4050, L501.6710, L101.9900 #### [facility] [address] [place], [address] MCV (RBC) [Entitic vol] 92.3 fL Normal 80-94 [facility] Comment on above: Order Comment: 301.2 Performed By: #### L 100.0500, L500.4050, L501.6710, L101.9900 #### [facility] [address] [place], [address] Platelet mean volume (Bld) [Entitic vol] 10.5 fL Normal 6.2-12.0 [facility] Comment on above: Order Comment: 301.2 Performed By: #### L 100.0500, L500.4050, L501.6710, L101.9900 #### [facility] [address] [place], [address] Platelets (Bld) [#/Vol] 241 10*3/uL Normal 150-450 [facility] Comment on above: Order Comment: 301.2 Performed By: #### L 100.0500, L500.4050, L501.6710, L101.9900 #### [facility] [address] [place], [address] RBC (Bld) [#/Vol] 4.14 10*6/uL Low 4.6-6.2 [facility] Comment on above: Order Comment: 301.2 Performed By: #### L 100.0500, L500.4050, L501.6710, L101.9900 #### [facility] [address] [place], [address] RDW SD 47.9 fl High 35.1-43.9 [facility] Comment on above: Order Comment: 301.2 Performed By: #### L 100.0500, L500.4050, L501.6710, L101.9900 #### [facility] [address] [place], [address] WBC (Bld) [#/Vol] 6.6 10*3/uL Normal 4.4-11.0 [facility] Comment on above: Order Comment: 301.2 Performed By: #### L 100.0500, L500.4050, L501.6710, L101.9900 #### [facility] [address] [place], [address] Carbon dioxide, total [Moles /volume] in Central venous bloodOrdered By: Tab Dupont on 12-07-2024 CO2 [Moles/Vol] 21.3 mmol/L 21.0-32.0 [facility] Chloride assayOrdered By: Vinh Lehman on 12-07-2024 Chloride [Moles/Vol] 104 mmol/L 98-[address] [facility] Erythrocyte distribution wid th ratioOrdered By: Tab Dupont on 12-07-2024 Erythrocyte distribution width (RBC) [Ratio] 14.0 % 11.6-14.6 [facility] Erythrocyte distribution wid th standard deviationOrdered By: Tab Dupont on 12-07-2024 Erythrocyte distribution width (RBC) [Entitic vol] 47.9 fL High 35.1-43.9 [facility] Erythrocyte distribution width (RBC) [Ratio] 47.9 fl High 35.1-43.9 [facility] GFR/1.73 sq M.predicted trish g non-blacks MDRD (S/P/Bld) [Vol rate/Area]Ordered By: Tab Dupont on 12-07-2024 Estimated GFR (MDRD) Non-Af Amer 117 >60 [facility] Comment on above: mL/min/1.73m2 CKD-EP I Creatinine Equation (2020) Glomerular filtration rate ( GFR) estimation/1.73 sq m using serum, plasma, or whole bOrdered By: Tab Dupont on 12-07-2024 GFR/1.73 sq M.predicted among non-blacks MDRD (S/P/Bld) [Vol rate/Area] 117 mL/min/{1.73_m2} >60 [facility] Comment on above: mL/min/1.73m2 CKD-EP I Creatinine Equation (2020) Hematocrit Auto (Bld) [Volum e fraction]Ordered By: Tab Dupont on 12-07-2024 Hematocrit (Bld) [Volume fraction] 38.2 % Low 40-54 [facility] Hemoglobin measurementOrdere d By: Tab Dupont on 12-07-2024 Hemoglobin (Bld) [Mass/Vol] 12.8 g/dL Low 13.0-16.5 [facility] MCV (mean corpuscular volume ) determinationOrdered By: aTb Dupont on 12-07-2024 MCV (RBC) [Entitic vol] 92.3 fL 80-94 [facility] Mean corpuscular hemoglobin (MCH) determinationOrdered By: Tab Dupont on 12-07-2024 MCH (RBC) [Entitic mass] 30.9 pg 27.0-32.0 [facility] Mean corpuscular hemoglobin concentration (MCHC) determinationOrdered By: Tab Dupont on 12-07-2024 MCHC (RBC) [Mass/Vol] 33.5 g/dL 32-36 [facility] Mean platelet volume determi nationOrdered By: Tab Dupont on 12-07-2024 Platelet mean volume (Bld) [Entitic vol] 10.5 fL 6.2-12.0 [facility] Platelet countOrdered By: Vinh Lehman on 12-07-2024 Platelets (Bld) [#/Vol] 241 10*3/uL 150-450 [facility] Potassium (Unsp spec) [Mass/ Vol]Ordered By: Tab Duopnt on 12-07-2024 Potassium [Moles/Vol] 4.3 mmol/L 3.3-5.1 [facility] Potassium measurement (mass/ volume)Ordered By: Tab Dupont on 12-07-2024 Potassium (Unsp spec) [Mass/Vol] 4.3 mmol/L 3.3-5.1 [facility] RBC Auto (Bld) [#/Vol]Ordere d By: Tab Dupont on 12-07-2024 RBC (Bld) [#/Vol] 4.14 10*6/uL Low 4.6-6.2 [facility] Serum creatinine measurement (mass/volume)Ordered By: Tab Dupont on 12-07-2024 Creatinine [Mass/Vol] 0.47 mg/dL Low 0.70-1.20 [facility] Serum glucose measurement (m ass/volume)Ordered By: Tab Dupont on 12-07-2024 Glucose [Mass/Vol] 194 mg/dL High 70-99 [facility] Serum or plasma calcium randall urement (mass/volume)Ordered By: Tab Dupont on 12-07-2024 Calcium [Mass/Vol] 8.6 mg/dL 7.6-11.0 [facility] Serum or plasma urea nitroge n measurement (mass/volume)Ordered By: Tab Dupont on 12-07-2024 Urea nitrogen [Mass/Vol] 9 mg/dL 4-19 [facility] Sodium levelOrdered By: Omar Dupont on 12-07-2024 Sodium [Moles/Vol] 136 mmol/L 133-145 [facility] White blood cell (WBC) count Ordered By: Tab Dupont on 12-07-2024 WBC (Bld) [#/Vol] 6.6 10*3/uL 4.4-11.0 [facility] Urine Cultureon 12-02-2024 [facility] STRAIGHT CATH Copy of report sent to Infection Control Printer [id number] 12/02/24 [email or web address] JIM. Urine Culture RESULTS CALLED TO LUKASZ Batista 12/02/24 1021 Erika Rosario. REPORT READ BACK BY . Citrobacter freundii Nova Count >100,000 Providencia stuartii Providencia stuartii MARKER [...] R Vancomycin Islt HARINDER 1 S Normal [facility] Comment on above: Performed By: #### L 100.0500, L500.4050, L501.6710, L101.9900 #### [facility] [address] [facility] [place], [place], [address] BUN/creatinine ratioOrdered By: Tab Dupont on 11-30-2024 Urea nitrogen/Creatinine [Mass ratio] 23.9 mg/mg High 10-20 [facility] Basic Metabolic Profile (BMP )on 11-30-2024 Anion gap [Moles/Vol] 9 mmol/L Normal 5-15 [facility] Comment on above: Order Comment: 301.2 Performed By: #### L 100.0500, L500.4050, L501.6710, L101.9900 #### [facility] [address] [place], [address] BUN/CRE 23.9 RATIO High 10-20 [facility] Comment on above: Order Comment: 301.2 Performed By: #### L 100.0500, L500.4050, L501.6710, L101.9900 #### [facility] [address] [place], [address] Calcium [Mass/Vol] 8.4 mg/dL Normal 7.6-11.0 [facility] Comment on above: Order Comment: 301.2 Performed By: #### L 100.0500, L500.4050, L501.6710, L101.9900 #### [facility] [address] [place], [address] Chloride [Moles/Vol] 105 mmol/L Normal 96-[address] [facility] Comment on above: Order Comment: 301.2 Performed By: #### L 100.0500, L500.4050, L501.6710, L101.9900 #### [facility] [address] [place], [address] CO2 [Moles/Vol] 22.7 mmol/L Normal 22.0-29.0 [facility] Comment on above: Order Comment: 301.2 Performed By: #### L 100.0500, L500.4050, L501.6710, L101.9900 #### [facility] [address] [place], [address] Creatinine [Mass/Vol] 0.4 mg/dL Low 0.8-1.3 [facility] Comment on above: Order Comment: 301.2 Performed By: #### L 100.0500, L500.4050, L501.6710, L101.9900 #### [facility] [address] [place], [address] GFR/1.73 sq M.predicted among non-blacks MDRD (S/P/Bld) [Vol rate/Area] 120 mL/min/{1.73_m2} Normal >60 [facility] Comment on above: Order Comment: 301.2 Result Comment: mL/m in/1.73m2 CKD-EPI Creatinine Equation (2020) Performed By: #### L 100.0500, L500.4050, L501.6710, L101.9900 #### [facility] [address] [place], [address] Glucose [Mass/Vol] 170 mg/dL High 70-99 [facility] Comment on above: Order Comment: 301.2 Performed By: #### L 100.0500, L500.4050, L501.6710, L101.9900 #### [facility] [address] [place], [address] Potassium [Moles/Vol] 3.8 mmol/L Normal 3.3-5.1 [facility] Comment on above: Order Comment: 301.2 Performed By: #### L 100.0500, L500.4050, L501.6710, L101.9900 #### [facility] [address] [place], [address] Sodium [Moles/Vol] 137 mmol/L Normal 133-145 [facility] Comment on above: Order Comment: 301.2 Performed By: #### L 100.0500, L500.4050, L501.6710, L101.9900 #### [facility] [address] [place], [address] Urea nitrogen [Mass/Vol] 10 mg/dL Normal 4-19 [facility] Comment on above: Order Comment: 301.2 Performed By: #### L 100.0500, L500.4050, L501.6710, L101.9900 #### [facility] [address] [place], [address] CBC-Complete Blood Cnt No Di ffon 11-30-2024 Erythrocyte distribution width (RBC) [Ratio] 13.7 % Normal 11.6-14.6 [facility] Comment on above: Order Comment: 301.2 Performed By: #### L 100.0500, L500.4050, L501.6710, L101.9900 #### [facility] [address] [place], [address] Hematocrit (Bld) [Volume fraction] 37.1 % Low 40-54 [facility] Comment on above: Order Comment: 301.2 Performed By: #### L 100.0500, L500.4050, L501.6710, L101.9900 #### [facility] [address] [place], [address] Hemoglobin (Bld) [Mass/Vol] 12.0 g/dL Low 13.0-16.5 [facility] Comment on above: Order Comment: 301.2 Performed By: #### L 100.0500, L500.4050, L501.6710, L101.9900 #### [facility] [address] [place], [address] MCH (RBC) [Entitic mass] 29.9 pg Normal 27.0-32.0 [facility] Comment on above: Order Comment: 301.2 Performed By: #### L 100.0500, L500.4050, L501.6710, L101.9900 #### [facility] [address] [place], [address] MCHC (RBC) [Mass/Vol] 32.3 g/dL Normal 32-36 [facility] Comment on above: Order Comment: 301.2 Performed By: #### L 100.0500, L500.4050, L501.6710, L101.9900 #### [facility] [address] [place], [address] MCV (RBC) [Entitic vol] 92.5 fL Normal 80-94 [facility] Comment on above: Order Comment: 301.2 Performed By: #### L 100.0500, L500.4050, L501.6710, L101.9900 #### [facility] [address] [place], [address] Platelet mean volume (Bld) [Entitic vol] 11.1 fL Normal 6.2-12.0 [facility] Comment on above: Order Comment: 301.2 Performed By: #### L 100.0500, L500.4050, L501.6710, L101.9900 #### [facility] [address] [place], [address] Platelets (Bld) [#/Vol] 230 10*3/uL Normal 150-450 [facility] Comment on above: Order Comment: 301.2 Performed By: #### L 100.0500, L500.4050, L501.6710, L101.9900 #### [facility] [address] [place], [address] RBC (Bld) [#/Vol] 4.01 10*6/uL Low 4.6-6.2 [facility] Comment on above: Order Comment: 301.2 Performed By: #### L 100.0500, L500.4050, L501.6710, L101.9900 #### [facility] [address] [place], [address] RDW SD 46.8 fl High 35.1-43.9 [facility] Comment on above: Order Comment: 301.2 Performed By: #### L 100.0500, L500.4050, L501.6710, L101.9900 #### [facility] [address] [place], [address] WBC (Bld) [#/Vol] 6.3 10*3/uL Normal 4.4-11.0 [facility] Comment on above: Order Comment: 301.2 Performed By: #### L 100.0500, L500.4050, L501.6710, L101.9900 #### [facility] [address] [place], [address] Carbon dioxide measurementOr dered By: Tab Dupont on 11-30-2024 CO2 [Moles/Vol] 22.7 mmol/L 22.0-29.0 [facility] Chloride measurementOrdered By: Tab Dupont on 11-30-2024 Chloride [Moles/Vol] 105 mmol/L 96-[address] [facility] Creatinine [Moles/Vol]Ordere d By: Tab Dupont on 11-30-2024 Creatinine [Mass/Vol] 0.4 mg/dL Low 0.8-1.3 [facility] Erythrocyte distribution wid th ratioOrdered By: Tab Dupont on 11-30-2024 Erythrocyte distribution width (RBC) [Ratio] 13.7 % 11.6-14.6 [facility] Erythrocyte distribution wid th standard deviationOrdered By: Tab Dupont on 11-30-2024 Erythrocyte distribution width (RBC) [Entitic vol] 46.8 fL High 35.1-43.9 [facility] Erythrocyte distribution width (RBC) [Ratio] 46.8 fl High 35.1-43.9 [facility] GFR/1.73 sq M.predicted trish g non-blacks MDRD (S/P/Bld) [Vol rate/Area]Ordered By: Tab Dupont on 11-30-2024 Estimated GFR (MDRD) Non-Af Amer 120 >60 [facility] Comment on above: mL/min/1.73m2 CKD-EP I Creatinine Equation (2020) Glomerular filtration rate ( GFR) estimation/1.73 sq m using serum, plasma, or whole bOrdered By: Tab Dupont on 11-30-2024 GFR/1.73 sq M.predicted among non-blacks MDRD (S/P/Bld) [Vol rate/Area] 120 mL/min/{1.73_m2} >60 [facility] Comment on above: mL/min/1.73m2 CKD-EP I Creatinine Equation (2020) Hematocrit Auto (Bld) [Volum e fraction]Ordered By: Tab Dupont on 11-30-2024 Hematocrit (Bld) [Volume fraction] 37.1 % Low 40-54 [facility] Hemoglobin measurementOrdere d By: Tab Dupont on 11-30-2024 Hemoglobin (Bld) [Mass/Vol] 12.0 g/dL Low 13.0-16.5 [facility] MCV (mean corpuscular volume ) determinationOrdered By: Tab Dupont on 11-30-2024 MCV (RBC) [Entitic vol] 92.5 fL 80-94 [facility] Mean corpuscular hemoglobin (MCH) determinationOrdered By: Tab Dupont on 11-30-2024 MCH (RBC) [Entitic mass] 29.9 pg 27.0-32.0 [facility] Mean corpuscular hemoglobin concentration (MCHC) determinationOrdered By: Tab Dupont on 11-30-2024 MCHC (RBC) [Mass/Vol] 32.3 g/dL 32-36 [facility] Mean platelet volume determi nationOrdered By: Tab Dupont on 11-30-2024 Platelet mean volume (Bld) [Entitic vol] 11.1 fL 6.2-12.0 [facility] Platelet countOrdered By: Vinh Lehman on 11-30-2024 Platelets (Bld) [#/Vol] 230 10*3/uL 150-450 [facility] RBC Auto (Bld) [#/Vol]Ordere d By: Tab Dupont on 11-30-2024 RBC (Bld) [#/Vol] 4.01 10*6/uL Low 4.6-6.2 [facility] Serum glucose measurement (m ass/volume)Ordered By: Tab Dupont on 11-30-2024 Glucose [Mass/Vol] 170 mg/dL High 70-99 [facility] Serum or plasma anion gap de termination (moles/volume)Ordered By: Tab Dupont on 11-30-2024 Anion gap [Moles/Vol] 9 mmol/L 5-15 [facility] Serum or plasma calcium randall urement (mass/volume)Ordered By: Tab Dupont on 11-30-2024 Calcium [Mass/Vol] 8.4 mg/dL 7.6-11.0 [facility] Serum or plasma creatinine m easurement (moles/volume)Ordered By: Tab Dupont on 11-30-2024 Creatinine [Moles/Vol] 0.4 mg/dL Low 0.8-1.3 [facility] Serum or plasma potassium me asurementOrdered By: Tab Dupont on 11-30-2024 Potassium [Moles/Vol] 3.8 mmol/L 3.3-5.1 [facility] Serum or plasma sodium measu rement (moles/volume)Ordered By: Tab Dupont on 11-30-2024 Sodium [Moles/Vol] 137 mmol/L 133-145 [facility] Serum or plasma urea nitroge n measurement (mass/volume)Ordered By: Tab Dupont on 11-30-2024 Urea nitrogen [Mass/Vol] 10 mg/dL 4-19 [facility] White blood cell (WBC) count Ordered By: Tab Dupont on 11-30-2024 WBC (Bld) [#/Vol] 6.3 10*3/uL 4.4-11.0 [facility] Bilirubin Test strip Ql (U)O rdered By: Daisy Costello on 11-29-2024 Bilirubin Ql (U) Negative Negative [facility] Epithelial cells.squamous LM Ql (Urine sed)Ordered By: Daisy Costello on 11-29-2024 Epithelial cells.squamous LM.HPF (Urine sed) [#/Area] 0 /[HPF] 0-5 [facility] Glucose Ql (U)Ordered By: Jose Costello on 11-29-2024 Urine Glucose (UA) Normal mg/dl Normal [facility] Ketones Test strip Ql (U)Ord ered By: Daisy Costello on 11-29-2024 Ketones Ql (U) Negative Negative [facility] Microscopic analysis of urin e for red blood cells (RBC)Ordered By: Daisy Costello on 11-29-2024 Microscopic analysis of urine for red blood cells (RBC) 10-25 SEEN /hpf 0-5 [facility] Urine RBC 10-25 SEEN /hpf 0-5 [facility] Mucus LM Ql (Urine sed)Order ed By: Daisy Costello on 11-29-2024 Mucus Ql (Urine sed) 0 SEEN /hpf [facility] Nitrite Test strip Ql (U)Ord ered By: Daisy Costello on 11-29-2024 Nitrite Ql (U) Positive High Negative [facility] Protein Test strip Ql (U)Ord ered By: Daisy Costello on 11-29-2024 Protein Ql (U) 100 mg/dl High Negative [facility] Squamous epithelial cells de tection in urine sediment by light microscopyOrdered By: Daisy Costello on 11-29-2024 Epithelial cells.squamous LM Ql (Urine sed) 0 SEEN /hpf 0-5 [facility] Urinalysis, Completeon 11-29 BACTERIA 1+ /hpf Normal None Seen [facility] Comment on above: Order Comment: 301.2 Performed By: #### L 100.0500, L500.4050, L501.6710, L101.9900 #### [facility] [address] [place], [address] RBC 10-25 SEEN Normal 0-[address] [place] [address] Comment on above: Order Comment: 301.2 Performed By: #### L 100.0500, L500.4050, L501.6710, L101.9900 #### [facility] [address] [place], [address] WBC >100 SEEN Normal 0-[address] [place] [address] Comment on above: Order Comment: 301.2 Performed By: #### L 100.0500, L500.4050, L501.6710, L101.9900 #### [facility] [address] [place], [address] EPI,SQUAMOUS 0 SEEN Normal 0-[address] [place] [address] Comment on above: Order Comment: 301.2 Performed By: #### L 100.0500, L500.4050, L501.6710, L101.9900 #### [facility] [address] [place], [address] Mucus Ql (Urine sed) 0 SEEN Normal [facility] Comment on above: Order Comment: 301.2 Performed By: #### L 100.0500, L500.4050, L501.6710, L101.9900 #### [facility] [address] [place], [address] Urine blood detectionOrdered By: Daisy Costello on 11-29-2024 Urine Occult Blood 250 /ul High Negative [facility] Urine clarityOrdered By: Ward Costello on 11-29-2024 Clarity (U) Cloudy Clear [facility] Urine color determinationOrd ered By: Daisy Costello on 11-29-2024 Color (U) Yellow Yellow [facility] Urine cultureOrdered By: Ward Costello on 11-29-2024 Bacteria identified Cx Nom (U) Citrobacter freundii Abnormal [facility] Bacteria identified Cx Nom (U) Providencia stuartii Abnormal [facility] Bacteria identified Cx Nom (U) Enterococcus faecalis Abnormal [facility] Bacteria identified Cx Nom (U) Citrobacter freundii Abnormal [facility] Bacteria identified Cx Nom (U) Providencia stuartii Abnormal [facility] Bacteria identified Cx Nom (U) Enterococcus faecalis Abnormal [facility] Urine glucose detectionOrder ed By: Daisy Costello on 11-29-2024 Glucose Ql (U) Normal mg/dl Normal [facility] Urine leukocyte esterase det ection by dipstickOrdered By: Daiys Costello on 11-29-2024 Leukocyte esterase Test strip Ql (U) 500 /ul High Negative [facility] Urine pHOrdered By: Colin on 11-29-2024 pH (U) 6.5 [pH] 5.0 - 8.0 [facility] Urine sediment bacteria coun t by microscopy (number/high power field)Ordered By: Daisy Costello on 11-29-2024 Bacteria LM.HPF (Urine sed) [#/Area] 1 /[HPF] None Seen [facility] Urine specific gravity measu rementOrdered By: Daisy Costello on 11-29-2024 Specific gravity (U) [Rel density] 1.010 1.002-1.030 [facility] Urine urobilinogen measureme ntOrdered By: Daisy Costello on 11-29-2024 Urobilinogen Ql (U) Normal mg/dl Normal [facility] Urobilinogen Ql (U)Ordered B y: Daisy Costello on 11-29-2024 Urine Urobilinogen Normal mg/dl Normal [facility] White blood cell countOrdere d By: Daisy Costello on 11-29-2024 Urine WBC >100 SEEN /hpf 0-5 [facility] White blood cell count >100 SEEN /hpf 0-5 [facility] Progress Noteson 11-08-2024 Material Handler Floorperson Authentication Interface Message Text Documentation: Mode: Video [...] months (around 02/05/2025) for in-person visit with [facility]. Faisal Simeon DO 11/08/2024 Normal [facility] 10-27-2024 36 Returned call unable to leave message doug was out for the day [facility] 10-26-2024 36 Name of caller: Dax banks Contact phone number: [phone] Relationship to Patient: Tierra Delvalle Provider: Dr. Gillette Practice: [facility] [place] [facility] Chief Complaint/Reason for Call: Doug states she missed a call from the office to schedule the patient and would like a return call. Please review. Best time of day caller can be reached: any Patient advised that office/PCP has 24-48 business hours to return their call: Yes [facility] 36 Called and left message to call to reschedule appointment [facility] 3610-25-2024 36 Name of Caller: Dax banks Contact Reason for Appointment: Please call to r/s cx appt for 10.26.24 due to weather conditions. Follow up for pain management//no showed on 08.04.24// Doug from [facility] parveen appt//medicare medicaid Office Name: [facility] Medication Refills need, if any: n/a Medication Name: n/a Normal [facility] Basic Metabolic Profile (BMP )on 10-10-2024 BUN/CRE 19.6 RATIO Normal 10-20 [facility] Comment on above: Order Comment: 313-2 Performed By: #### L 100.0500, L500.2500 #### [facility] [address] [place], [address] CA,Total 8.7 mg/dL Normal 8.5-10.1 [facility] Comment on above: Order Comment: 313-2 Performed By: #### L 100.0500, L500.2500 #### [facility] [address] [place], [address] Chloride [Moles/Vol] 109 mmol/L High 98-[address] [facility] Comment on above: Order Comment: 313-2 Performed By: #### L 100.0500, L500.2500 #### [facility] [address] [place], [address] CO2 [Moles/Vol] 22.0 mmol/L Normal 21.0-32.0 [facility] Comment on above: Order Comment: 313-2 Performed By: #### L 100.0500, L500.2500 #### [facility] [address] [place], [address] Creatinine [Mass/Vol] 0.56 mg/dL Low 0.70-1.30 [facility] Comment on above: Order Comment: 313-2 Result Comment: The validity of the calculated GFR GFRAA in patients over 70 years has not been determined. Clinical correlation is essential. Performed By: #### L 100.0500, L500.2500 #### [facility] [address] [place], [address] EST GFR - AA 189 mL/min Normal >60 [facility] Comment on above: Order Comment: 313-2 Result Comment: Afri can Cameroonian GFR Calc Performed By: #### L 100.0500, L500.2500 #### [facility] [address] [place], [address] GAP 7 Normal 5-15 [facility] Comment on above: Order Comment: 313-2 Performed By: #### L 100.0500, L500.2500 #### [facility] [address] [place], [address] GFR/1.73 sq M.predicted among non-blacks MDRD (S/P/Bld) [Vol rate/Area] 156 mL/min/{1.73_m2} Normal >60 [facility] Comment on above: Order Comment: 313-2 Result Comment: Non- GFR Calc Performed By: #### L 100.0500, L500.2500 #### [facility] [address] [place], [address] Glucose [Mass/Vol] 108 mg/dL High 74-106 [facility] Comment on above: Order Comment: 313-2 Result Comment: Fast ing Glucose result from 100 to 125 mg/dL suggests IMPAIRED HOMEOSTASIS per A.D.A. criteria. Performed By: #### L 100.0500, L500.2500 #### [facility] [address] [place], [address] Potassium [Moles/Vol] 4.0 mmol/L Normal 3.5-5.1 [facility] Comment on above: Order Comment: 313-2 Performed By: #### L 100.0500, L500.2500 #### [facility] [address] [place], [address] Sodium [Moles/Vol] 139 mmol/L Normal 136-145 [facility] Comment on above: Order Comment: 313-2 Performed By: #### L 100.0500, L500.2500 #### [facility] [address] [place], [address] Urea nitrogen [Mass/Vol] 11 mg/dL Normal 7-18 [facility] Comment on above: Order Comment: 313-2 Performed By: #### L 100.0500, L500.2500 #### [facility] [address] [place], [address] Blood urea nitrogen (BUN)/cr eatinine ratioOrdered By: Tab Dupont on 10-10-2024 Urea nitrogen/Creatinine [Mass ratio] 19.6 mg/mg 10-20 [facility] CBC-Complete Blood Cnt No Di ffon 10-10-2024 Erythrocyte distribution width (RBC) [Ratio] 13.9 % Normal 11.6-14.6 [facility] Comment on above: Order Comment: 313-2 Performed By: #### L 100.0500, L500.2500 #### [facility] [address] [place], [address] Hematocrit (Bld) [Volume fraction] 42.2 % Normal 40-54 [facility] Comment on above: Order Comment: 313-2 Performed By: #### L 100.0500, L500.2500 #### [facility] [address] [place], [address] Hemoglobin (Bld) [Mass/Vol] 13.4 g/dL Normal 13.0-16.5 [facility] Comment on above: Order Comment: 313-2 Performed By: #### L 100.0500, L500.2500 #### [facility] [address] [place], [address] MCH (RBC) [Entitic mass] 29.8 pg Normal 27.0-32.0 [facility] Comment on above: Order Comment: 313-2 Performed By: #### L 100.0500, L500.2500 #### [facility] [address] [place], [address] MCHC (RBC) [Mass/Vol] 31.8 g/dL Low 32-36 [facility] Comment on above: Order Comment: 313-2 Performed By: #### L 100.0500, L500.2500 #### [facility] [address] [place], [address] MCV (RBC) [Entitic vol] 94.0 fL Normal 80-94 [facility] Comment on above: Order Comment: 313-2 Performed By: #### L 100.0500, L500.2500 #### [facility] [address] [place], [address] Platelet mean volume (Bld) [Entitic vol] 10.5 fL Normal 6.2-12.0 [facility] Comment on above: Order Comment: 313-2 Performed By: #### L 100.0500, L500.2500 #### [facility] [address] [place], [address] Platelets (Bld) [#/Vol] 283 10*3/uL Normal 150-450 [facility] Comment on above: Order Comment: 313-2 Performed By: #### L 100.0500, L500.2500 #### [facility] [address] [place], [address] RBC (Bld) [#/Vol] 4.49 10*6/uL Low 4.6-6.2 [facility] Comment on above: Order Comment: 313-2 Performed By: #### L 100.0500, L500.2500 #### [facility] [address] [place], [address] RDW SD 47.8 fl High 35.1-43.9 [facility] Comment on above: Order Comment: 313-2 Performed By: #### L 100.0500, L500.2500 #### [facility] [address] [place], [address] WBC (Bld) [#/Vol] 7.7 10*3/uL Normal 4.4-11.0 [facility] Comment on above: Order Comment: 313-2 Performed By: #### L 100.0500, L500.2500 #### [facility] [place], [address] Carbon dioxide measurementOr dered By: Tab Dupont on 10-10-2024 CO2 [Moles/Vol] 22.0 mmol/L 21.0-32.0 [facility] Chloride measurementOrdered By: Tab Dupont on 10-10-2024 Chloride [Moles/Vol] 109 mmol/L High 98-[address] [facility] Erythrocyte distribution wid th ratioOrdered By: Tab Dupont on 10-10-2024 Erythrocyte distribution width (RBC) [Ratio] 13.9 % 11.6-14.6 [facility] Erythrocyte distribution wid th standard deviationOrdered By: Tab Dupont on 10-10-2024 Erythrocyte distribution width (RBC) [Entitic vol] 47.8 fL High 35.1-43.9 [facility] Estimated glomerular filtrat ion rate (GFR) AmericanOrdered By: Tab Dupont on 10-10-2024 Estimated GFR (MDRD) Amer 189 mL/min >60 [facility] Comment on above: GFR Calc Glomerular filtration rate ( GFR) estimationOrdered By: Tab Dupont on 10-10-2024 Estimated GFR (MDRD) Non-Af Amer 156 mL/min >60 [facility] Comment on above: Non- GFR Calc Glucose measurementOrdered B y: Tab Dupont on 10-10-2024 Glucose [Mass/Vol] 108 mg/dL High 74-106 [facility] Comment on above: Fasting Glucose resu lt from 100 to 125 mg/dL suggests IMPAIRED HOMEOSTASIS per A.D.A. criteria. Hematocrit Auto (Bld) [Volum e fraction]Ordered By: Tab Dupont on 10-10-2024 Hematocrit (Bld) [Volume fraction] 42.2 % 40-54 [facility] Hemoglobin measurementOrdere d By: Tab Dupont on 10-10-2024 Hemoglobin (Bld) [Mass/Vol] 13.4 g/dL 13.0-16.5 [facility] MCV (mean corpuscular volume ) determinationOrdered By: Tab Dupont on 10-10-2024 MCV (RBC) [Entitic vol] 94.0 fL 80-94 [facility] Mean corpuscular hemoglobin (MCH) determinationOrdered By: Tab Dupont on 10-10-2024 MCH (RBC) [Entitic mass] 29.8 pg 27.0-32.0 [facility] Mean corpuscular hemoglobin concentration (MCHC) determinationOrdered By: Tab Dupont on 10-10-2024 MCHC (RBC) [Mass/Vol] 31.8 g/dL Low 32-36 [facility] Mean platelet volume determi nationOrdered By: Tab Dupont on 10-10-2024 Platelet mean volume (Bld) [Entitic vol] 10.5 fL 6.2-12.0 [facility] Platelet countOrdered By: Vinh Lehman on 10-10-2024 Platelets (Bld) [#/Vol] 283 10*3/uL 150-450 [facility] Potassium measurementOrdered By: Tab Dupont on 10-10-2024 Potassium [Moles/Vol] 4.0 mmol/L 3.5-5.1 [facility] RBC Auto (Bld) [#/Vol]Ordere d By: Tab Dupont on 10-10-2024 RBC (Bld) [#/Vol] 4.49 10*6/uL Low 4.6-6.2 [facility] Serum anion gap measurementO rdered By: Tab Dupont on 10-10-2024 Anion gap [Moles/Vol] 7 mmol/L 5-15 [facility] Serum or plasma calcium randall urement (mass/volume)Ordered By: Tab Dupont on 10-10-2024 Calcium [Mass/Vol] 8.7 mg/dL 8.5-10.1 [facility] Serum or plasma creatinine m easurement (mass/volume)Ordered By: Tab Dupont on 10-10-2024 Creatinine [Mass/Vol] 0.56 mg/dL Low 0.70-1.30 [facility] Comment on above: The validity of the calculated GFR & GFRAA in patients over 70 years has not been determined. Clinical correlation is essential. Serum or plasma urea nitroge n measurement (mass/volume)Ordered By: Tab Dupont on 10-10-2024 Urea nitrogen [Mass/Vol] 11 mg/dL 7-18 [facility] Sodium levelOrdered By: Omar Dupont on 10-10-2024 Sodium [Moles/Vol] 139 mmol/L 136-145 [facility] White blood cell (WBC) count Ordered By: Tab Dupont on 10-10-2024 WBC (Bld) [#/Vol] 7.7 10*3/uL 4.4-11.0 [facility] Basic Metabolic Profile (BMP )on 10-03-2024 BUN/CRE 14.7 RATIO Normal 10-20 [facility] Comment on above: Order Comment: 301.2 Performed By: #### L 100.0500, L500.4050, L501.6710, L101.9900 #### [facility] [address] [place], [address] CA,Total 8.7 mg/dL Normal 8.5-10.1 [facility] Comment on above: Order Comment: 301.2 Performed By: #### L 100.0500, L500.4050, L501.6710, L101.9900 #### [facility] [address] [place], [address] Chloride [Moles/Vol] 109 mmol/L High 98-[address] [facility] Comment on above: Order Comment: 301.2 Performed By: #### L 100.0500, L500.4050, L501.6710, L101.9900 #### [facility] [address] [place], [address] CO2 [Moles/Vol] 24.0 mmol/L Normal 21.0-32.0 [facility] Comment on above: Order Comment: 301.2 Performed By: #### L 100.0500, L500.4050, L501.6710, L101.9900 #### [facility] [address] [place], [address] Creatinine [Mass/Vol] 0.48 mg/dL Low 0.70-1.30 [facility] Comment on above: Order Comment: 301.2 Result Comment: The validity of the calculated GFR GFRAA in patients over 70 years has not been determined. Clinical correlation is essential. Performed By: #### L 100.0500, L500.4050, L501.6710, L101.9900 #### [facility] [address] [place], [address] EST GFR - AA 229 mL/min Normal >60 [facility] Comment on above: Order Comment: 301.2 Result Comment: Afri can Cameroonian GFR Calc Performed By: #### L 100.0500, L500.4050, L501.6710, L101.9900 #### [facility] [address] [place], [address] GAP 5 Normal 5-15 [facility] Comment on above: Order Comment: 301.2 Performed By: #### L 100.0500, L500.4050, L501.6710, L101.9900 #### [facility] [address] [place], [address] GFR/1.73 sq M.predicted among non-blacks MDRD (S/P/Bld) [Vol rate/Area] 189 mL/min/{1.73_m2} Normal >60 [facility] Comment on above: Order Comment: 301.2 Result Comment: Non- GFR Calc Performed By: #### L 100.0500, L500.4050, L501.6710, L101.9900 #### [facility] [address] [place], [address] Glucose [Mass/Vol] 105 mg/dL Normal 74-106 [facility] Comment on above: Order Comment: 301.2 Result Comment: Fast ing Glucose result from 100 to 125 mg/dL suggests IMPAIRED HOMEOSTASIS per A.D.A. criteria. Performed By: #### L 100.0500, L500.4050, L501.6710, L101.9900 #### [facility] [address] [place], [address] Potassium [Moles/Vol] 3.7 mmol/L Normal 3.5-5.1 [facility] Comment on above: Order Comment: 301.2 Performed By: #### L 100.0500, L500.4050, L501.6710, L101.9900 #### [facility] [address] [place], [address] Sodium [Moles/Vol] 138 mmol/L Normal 136-145 [facility] Comment on above: Order Comment: 301.2 Performed By: #### L 100.0500, L500.4050, L501.6710, L101.9900 #### [facility] [address] [place], [address] Urea nitrogen [Mass/Vol] 7 mg/dL Normal 7-18 [facility] Comment on above: Order Comment: 301.2 Performed By: #### L 100.0500, L500.4050, L501.6710, L101.9900 #### [facility] [address] [place], [address] Blood urea nitrogen (BUN)/cr eatinine ratioOrdered By: Tab Dupont on 10-03-2024 Urea nitrogen/Creatinine [Mass ratio] 14.7 mg/mg 10-20 [facility] CBC-Complete Blood Cnt No Di ffon 10-03-2024 Erythrocyte distribution width (RBC) [Ratio] 14.0 % Normal 11.6-14.6 [facility] Comment on above: Order Comment: 301.2 Performed By: #### L 100.0500, L500.4050, L501.6710, L101.9900 #### [facility] [address] [place], [address] Hematocrit (Bld) [Volume fraction] 38.4 % Low 40-54 [facility] Comment on above: Order Comment: 301.2 Performed By: #### L 100.0500, L500.4050, L501.6710, L101.9900 #### [facility] [address] [place], [address] Hemoglobin (Bld) [Mass/Vol] 12.5 g/dL Low 13.0-16.5 [facility] Comment on above: Order Comment: 301.2 Performed By: #### L 100.0500, L500.4050, L501.6710, L101.9900 #### [facility] [address] [place], [address] MCH (RBC) [Entitic mass] 30.3 pg Normal 27.0-32.0 [facility] Comment on above: Order Comment: 301.2 Performed By: #### L 100.0500, L500.4050, L501.6710, L101.9900 #### [facility] [address] [place], [address] MCHC (RBC) [Mass/Vol] 32.6 g/dL Normal 32-36 [facility] Comment on above: Order Comment: 301.2 Performed By: #### L 100.0500, L500.4050, L501.6710, L101.9900 #### [facility] [address] [place], [address] MCV (RBC) [Entitic vol] 93.0 fL Normal 80-94 [facility] Comment on above: Order Comment: 301.2 Performed By: #### L 100.0500, L500.4050, L501.6710, L101.9900 #### [facility] [address] [place], [address] Platelet mean volume (Bld) [Entitic vol] 10.4 fL Normal 6.2-12.0 [facility] Comment on above: Order Comment: 301.2 Performed By: #### L 100.0500, L500.4050, L501.6710, L101.9900 #### [facility] [address] [place], [address] Platelets (Bld) [#/Vol] 284 10*3/uL Normal 150-450 [facility] Comment on above: Order Comment: 301.2 Performed By: #### L 100.0500, L500.4050, L501.6710, L101.9900 #### [facility] [address] [place], [address] RBC (Bld) [#/Vol] 4.13 10*6/uL Low 4.6-6.2 [facility] Comment on above: Order Comment: 301.2 Performed By: #### L 100.0500, L500.4050, L501.6710, L101.9900 #### [facility] [address] [place], [address] RDW SD 48.5 fl High 35.1-43.9 [facility] Comment on above: Order Comment: 301.2 Performed By: #### L 100.0500, L500.4050, L501.6710, L101.9900 #### [facility] [address] [place], [address] WBC (Bld) [#/Vol] 7.8 10*3/uL Normal 4.4-11.0 [facility] Comment on above: Order Comment: 301.2 Performed By: #### L 100.0500, L500.4050, L501.6710, L101.9900 #### [facility] [address] [place], [address] Carbon dioxide measurementOr dered By: Tab Dupont on 10-03-2024 CO2 [Moles/Vol] 24.0 mmol/L 21.0-32.0 [facility] Chloride measurementOrdered By: Tab Dupont on 10-03-2024 Chloride [Moles/Vol] 109 mmol/L High 98-[address] [facility] Erythrocyte distribution wid th ratioOrdered By: Tab Dupont on 10-03-2024 Erythrocyte distribution width (RBC) [Ratio] 14.0 % 11.6-14.6 [facility] Erythrocyte distribution wid th standard deviationOrdered By: Tab Dupont on 10-03-2024 Erythrocyte distribution width (RBC) [Entitic vol] 48.5 fL High 35.1-43.9 [facility] Estimated glomerular filtrat ion rate (GFR) AmericanOrdered By: Tab Dupont on 10-03-2024 Estimated GFR (MDRD) Amer 229 mL/min >60 [facility] Comment on above: GFR Calc Glomerular filtration rate ( GFR) estimationOrdered By: Tab Dupont on 10-03-2024 Estimated GFR (MDRD) Non-Af Amer 189 mL/min >60 [facility] Comment on above: Non- GFR Calc Glucose measurementOrdered B y: Tab Dupont on 10-03-2024 Glucose [Mass/Vol] 105 mg/dL 74-106 [facility] Comment on above: Fasting Glucose resu lt from 100 to 125 mg/dL suggests IMPAIRED HOMEOSTASIS per A.D.A. criteria. Hematocrit Auto (Bld) [Volum e fraction]Ordered By: Tab Dupont on 10-03-2024 Hematocrit (Bld) [Volume fraction] 38.4 % Low 40-54 [facility] Hemoglobin measurementOrdere d By: Tab Dupont on 10-03-2024 Hemoglobin (Bld) [Mass/Vol] 12.5 g/dL Low 13.0-16.5 [facility] MCV (mean corpuscular volume ) determinationOrdered By: Tab Dupont on 10-03-2024 MCV (RBC) [Entitic vol] 93.0 fL 80-94 [facility] Mean corpuscular hemoglobin (MCH) determinationOrdered By: Tab Dupont on 10-03-2024 MCH (RBC) [Entitic mass] 30.3 pg 27.0-32.0 [facility] Mean corpuscular hemoglobin concentration (MCHC) determinationOrdered By: Tab Dupont on 10-03-2024 MCHC (RBC) [Mass/Vol] 32.6 g/dL 32-36 [facility] Mean platelet volume determi nationOrdered By: Tab Dupont on 10-03-2024 Platelet mean volume (Bld) [Entitic vol] 10.4 fL 6.2-12.0 [facility] Platelet countOrdered By: Vinh Lehman on 10-03-2024 Platelets (Bld) [#/Vol] 284 10*3/uL 150-450 [facility] Potassium measurementOrdered By: Tab Dupont on 10-03-2024 Potassium [Moles/Vol] 3.7 mmol/L 3.5-5.1 [facility] RBC Auto (Bld) [#/Vol]Ordere d By: Tab Dupont on 10-03-2024 RBC (Bld) [#/Vol] 4.13 10*6/uL Low 4.6-6.2 [facility] Serum anion gap measurementO rdered By: Tab Dupont on 10-03-2024 Anion gap [Moles/Vol] 5 mmol/L 5-15 [facility] Serum or plasma calcium randall urement (mass/volume)Ordered By: Tab Dupont on 10-03-2024 Calcium [Mass/Vol] 8.7 mg/dL 8.5-10.1 [facility] Serum or plasma creatinine m easurement (mass/volume)Ordered By: Tab Dupont on 10-03-2024 Creatinine [Mass/Vol] 0.48 mg/dL Low 0.70-1.30 [facility] Comment on above: The validity of the calculated GFR & GFRAA in patients over 70 years has not been determined. Clinical correlation is essential. Serum or plasma urea nitroge n measurement (mass/volume)Ordered By: Tab Dupont on 10-03-2024 Urea nitrogen [Mass/Vol] 7 mg/dL 7-18 [facility] Sodium levelOrdered By: Omar Dupont on 10-03-2024 Sodium [Moles/Vol] 138 mmol/L 136-145 [facility] White blood cell (WBC) count Ordered By: Tab Dupont on 10-03-2024 WBC (Bld) [#/Vol] 7.8 10*3/uL 4.4-11.0 [facility] Patient Instructionson 09-30 Material Handler Floorperson Authentication Interface Message Text Completed UDS. Inserted 18Fr 10cc santana Call to schedule appt with Urology Dr Jorge Grimm MD (Surgeon) [address] [place] [address] scan given recurrent blood [...] burning on urination, call the office at [phone] Thursday through Thursday 8:00 AM to 4:30 PM. For emergencies, go the Emergency Room. If you do not already have a follow up appointment scheduled with your physician, call the office at [phone] to schedule one. Normal [facility] Progress Noteson 09-30-2024 Material Handler Floorperson Authentication Interface Message Text SPINAL CORD INJURY [...] p (more content not included)... Normal [facility] C-reactive protein measureme nt by high sensitivity methodOrdered By: Tab Dupont on 09-29-2024 C-Reactive Protein Extended Range 38.30 mg/L High 0.0-3.0 [facility] Comment on above: C-Reactive Protein ( CRP) provides useful information for thediagnosis, therapy and monitoring of inflammatory processesand associated diseases. For the evaluation of Relative Riskfor Cardiovascular Disease, a High Sensitivity CRP (HSCRP)should be ordered. CBC-Complete Blood Cnt No Di ffon 09-29-2024 Erythrocyte distribution width (RBC) [Ratio] 14.4 % Normal 11.6-14.6 [facility] Comment on above: Order Comment: 301.2 Performed By: #### L 100.0500, L500.4050, L501.6710, L101.9900 #### [facility] [address] [place], [address] Hematocrit (Bld) [Volume fraction] 40.3 % Normal 40-54 [facility] Comment on above: Order Comment: 301.2 Performed By: #### L 100.0500, L500.4050, L501.6710, L101.9900 #### [facility] [address] [place], [address] Hemoglobin (Bld) [Mass/Vol] 13.3 g/dL Normal 13.0-16.5 [facility] Comment on above: Order Comment: 301.2 Performed By: #### L 100.0500, L500.4050, L501.6710, L101.9900 #### [facility] [address] [place], [address] MCH (RBC) [Entitic mass] 31.4 pg Normal 27.0-32.0 [facility] Comment on above: Order Comment: 301.2 Performed By: #### L 100.0500, L500.4050, L501.6710, L101.9900 #### [facility] [address] [place], [address] MCHC (RBC) [Mass/Vol] 33.0 g/dL Normal 32-36 [facility] Comment on above: Order Comment: 301.2 Performed By: #### L 100.0500, L500.4050, L501.6710, L101.9900 #### [facility] [address] [place], [address] MCV (RBC) [Entitic vol] 95.0 fL High 80-94 [facility] Comment on above: Order Comment: 301.2 Performed By: #### L 100.0500, L500.4050, L501.6710, L101.9900 #### [facility] [address] [place], [address] Platelet mean volume (Bld) [Entitic vol] 10.6 fL Normal 6.2-12.0 [facility] Comment on above: Order Comment: 301.2 Performed By: #### L 100.0500, L500.4050, L501.6710, L101.9900 #### [facility] [address] [place], [address] Platelets (Bld) [#/Vol] 270 10*3/uL Normal 150-450 [facility] Comment on above: Order Comment: 301.2 Performed By: #### L 100.0500, L500.4050, L501.6710, L101.9900 #### [facility] [address] [place], [address] RBC (Bld) [#/Vol] 4.24 10*6/uL Low 4.6-6.2 [facility] Comment on above: Order Comment: 301.2 Performed By: #### L 100.0500, L500.4050, L501.6710, L101.9900 #### [facility] [address] [place], [address] RDW SD 50.0 fl High 35.1-43.9 [facility] Comment on above: Order Comment: 301.2 Performed By: #### L 100.0500, L500.4050, L501.6710, L101.9900 #### [facility] [address] [place], [address] WBC (Bld) [#/Vol] 8.7 10*3/uL Normal 4.4-11.0 [facility] Comment on above: Order Comment: 301.2 Performed By: #### L 100.0500, L500.4050, L501.6710, L101.9900 #### [facility] [address] [place], [address] CRPon 09-29-2024 C-REACTIVE PROT 38.30 mg/L High 0.0-3.0 [facility] Comment on above: Order Comment: [facility] SPECIMEN Result Comment: C-Re active Protein (CRP) provides useful information for the diagnosis, therapy and monitoring of inflammatory processes and associated diseases. For the evaluation of Relative Risk for Cardiovascular Disease, a High Sensitivity CRP (HSCRP) should be ordered. Performed By: #### L 400.0001, M100.2200 #### [facility] [address] [place], [address] Erythrocyte Sed Rateon 09-29 SED RATE 47 mm/hr High 0-20 [facility] Comment on above: Order Comment: 301.2 Performed By: #### L 100.0500, L500.4050, L501.6710, L101.9900 #### [facility] [address] [place], [address] Erythrocyte distribution wid th ratioOrdered By: Tab Dupont on 09-29-2024 Erythrocyte distribution width (RBC) [Ratio] 14.4 % 11.6-14.6 [facility] Erythrocyte distribution wid th standard deviationOrdered By: Tab Dupont on 09-29-2024 Erythrocyte distribution width (RBC) [Entitic vol] 50.0 fL High 35.1-43.9 [facility] Erythrocyte sedimentation ra teOrdered By: Tab Dupont on 09-29-2024 ESR (Bld) [Velocity] 47 mm/h High 0-[address] [facility] Hematocrit Auto (Bld) [Volum e fraction]Ordered By: Tab Dupont on 09-29-2024 Hematocrit (Bld) [Volume fraction] 40.3 % 40-54 [facility] Hemoglobin measurementOrdere d By: Tab Dupont on 09-29-2024 Hemoglobin (Bld) [Mass/Vol] 13.3 g/dL 13.0-16.5 [facility] MCV (mean corpuscular volume ) determinationOrdered By: Tab Dupont on 09-29-2024 MCV (RBC) [Entitic vol] 95.0 fL High 80-94 [facility] Mean corpuscular hemoglobin (MCH) determinationOrdered By: Tab Dupont on 09-29-2024 MCH (RBC) [Entitic mass] 31.4 pg 27.0-32.0 [facility] Mean corpuscular hemoglobin concentration (MCHC) determinationOrdered By: Tab Dupont on 09-29-2024 MCHC (RBC) [Mass/Vol] 33.0 g/dL 32-36 [facility] Mean platelet volume determi nationOrdered By: Tab Dupont on 09-29-2024 Platelet mean volume (Bld) [Entitic vol] 10.6 fL 6.2-12.0 [facility] Platelet countOrdered By: Vinh Lehman on 09-29-2024 Platelets (Bld) [#/Vol] 270 10*3/uL 150-450 [facility] RBC Auto (Bld) [#/Vol]Ordere d By: Tab Dupont on 09-29-2024 RBC (Bld) [#/Vol] 4.24 10*6/uL Low 4.6-6.2 [facility] White blood cell (WBC) count Ordered By: Tab Dupont on 09-29-2024 WBC (Bld) [#/Vol] 8.7 10*3/uL 4.4-11.0 [facility] Basic Metabolic Profile (BMP )on 09-20-2024 BUN/CRE 26.4 RATIO High 10-20 [facility] Comment on above: Order Comment: 301.2 Performed By: #### L 100.0500, L500.4050, L501.6710, L101.9900 #### [facility] [address] [place], [address] CA,Total 8.2 mg/dL Low 8.5-10.1 [facility] Comment on above: Order Comment: 301.2 Performed By: #### L 100.0500, L500.4050, L501.6710, L101.9900 #### [facility] [address] [place], [address] Chloride [Moles/Vol] 107 mmol/L Normal 98-[address] [facility] Comment on above: Order Comment: 301.2 Performed By: #### L 100.0500, L500.4050, L501.6710, L101.9900 #### [facility] [address] [place], [address] CO2 [Moles/Vol] 24.0 mmol/L Normal 21.0-32.0 [facility] Comment on above: Order Comment: 301.2 Performed By: #### L 100.0500, L500.4050, L501.6710, L101.9900 #### [facility] [address] [place], [address] Creatinine [Mass/Vol] 0.61 mg/dL Low 0.70-1.30 [facility] Comment on above: Order Comment: 301.2 Result Comment: The validity of the calculated GFR GFRAA in patients over 70 years has not been determined. Clinical correlation is essential. Performed By: #### L 100.0500, L500.4050, L501.6710, L101.9900 #### [facility] [address] [place], [address] EST GFR - AA 173 mL/min Normal >60 [facility] Comment on above: Order Comment: 301.2 Result Comment: Afri can Cameroonian GFR Calc Performed By: #### L 100.0500, L500.4050, L501.6710, L101.9900 #### [facility] [address] [place], [address] GAP 6 Normal 5-15 [facility] Comment on above: Order Comment: 301.2 Performed By: #### L 100.0500, L500.4050, L501.6710, L101.9900 #### [facility] [address] [place], [address] GFR/1.73 sq M.predicted among non-blacks MDRD (S/P/Bld) [Vol rate/Area] 143 mL/min/{1.73_m2} Normal >60 [facility] Comment on above: Order Comment: 301.2 Result Comment: Non- GFR Calc Performed By: #### L 100.0500, L500.4050, L501.6710, L101.9900 #### [facility] [address] [place], [address] Glucose [Mass/Vol] 134 mg/dL High 74-106 [facility] Comment on above: Order Comment: 301.2 Result Comment: Fast ing Glucose result greater than or equal to 126 mg/dL suggests DIABETES MELLITUS per A.D.A. criteria. Performed By: #### L 100.0500, L500.4050, L501.6710, L101.9900 #### [facility] [address] [place], [address] Potassium [Moles/Vol] 3.3 mmol/L Low 3.5-5.1 [facility] Comment on above: Order Comment: 301.2 Performed By: #### L 100.0500, L500.4050, L501.6710, L101.9900 #### [facility] [address] [place], [address] Sodium [Moles/Vol] 137 mmol/L Normal 136-145 [facility] Comment on above: Order Comment: 301.2 Performed By: #### L 100.0500, L500.4050, L501.6710, L101.9900 #### [facility] [address] [place], [address] Urea nitrogen [Mass/Vol] 16 mg/dL Normal 7-18 [facility] Comment on above: Order Comment: 301.2 Performed By: #### L 100.0500, L500.4050, L501.6710, L101.9900 #### [facility] [address] [place], [address] Blood urea nitrogen (BUN)/cr eatinine ratioOrdered By: Tab Dupont on 09-20-2024 Urea nitrogen/Creatinine [Mass ratio] 26.4 mg/mg High 10-20 [facility] Carbon dioxide measurementOr dered By: Tab Dupont on 09-20-2024 CO2 [Moles/Vol] 24.0 mmol/L 21.0-32.0 [facility] Chloride measurementOrdered By: Tab Dupont on 09-20-2024 Chloride [Moles/Vol] 107 mmol/L 98-[address] [facility] Estimated glomerular filtrat ion rate (GFR) AmericanOrdered By: Tab Dupont on 09-20-2024 Estimated GFR (MDRD) Amer 173 mL/min >60 [facility] Comment on above: GFR Calc Glomerular filtration rate ( GFR) estimationOrdered By: Tab Dupont on 09-20-2024 Estimated GFR (MDRD) Non-Af Amer 143 mL/min >60 [facility] Comment on above: Non- GFR Calc Glucose measurementOrdered B y: Tab Dupont on 09-20-2024 Glucose [Mass/Vol] 134 mg/dL High 74-106 [facility] Comment on above: Fasting Glucose resu lt greater than or equal to 126 mg/dL suggests DIABETES MELLITUS per A.D.A. criteria. Potassium measurementOrdered By: Tab Dupont on 09-20-2024 Potassium [Moles/Vol] 3.3 mmol/L Low 3.5-5.1 [facility] Serum anion gap measurementO rdered By: Tab Dupont on 09-20-2024 Anion gap [Moles/Vol] 6 mmol/L 5-15 [facility] Serum or plasma calcium randall urement (mass/volume)Ordered By: Tab Dupont on 09-20-2024 Calcium [Mass/Vol] 8.2 mg/dL Low 8.5-10.1 [facility] Serum or plasma creatinine m easurement (mass/volume)Ordered By: Tab Dupont on 09-20-2024 Creatinine [Mass/Vol] 0.61 mg/dL Low 0.70-1.30 [facility] Comment on above: The validity of the calculated GFR & GFRAA in patients over 70 years has not been determined. Clinical correlation is essential. Serum or plasma urea nitroge n measurement (mass/volume)Ordered By: Tab Dupont on 09-20-2024 Urea nitrogen [Mass/Vol] 16 mg/dL 04-21 [facility] Sodium levelOrdered By: Omar Dupont on 09-20-2024 Sodium [Moles/Vol] 137 mmol/L 136-145 [facility] Progress Noteson 08-22-2024 Material Handler Floorperson Authentication Interface Message Text Rheumatology New visit [...] Resource Strain: Low Risk (04/24/2023) Received from [facility] Overall Financial Resource Strain (CARDIA) Difficulty of Paying Living Expenses: Not hard at all Food Insecurity: No Food Insecurity (05/18/2024) Received from [facility] [employer] Hunger Vital Sign Worried About Running Out of Food in the Last Year: Never true Ran Out of Food in the Last Year: Never true Transportation Needs: No Transportation Needs (05/18/2024) Received from [facility] [employer] PRAPARE - Transportation Lack of Transportation (Medical): No Lack of Transportation (Non-Medical): No Intimate Partner Violence: Not At Risk (05/18/2024) Received from [facility] Humiliation, Afraid, Rape, and Kick questionnaire [...] - (more content not included)... Normal [facility] Telephone Encounteron 2023 Material Handler Floorperson Authentication Interface Message Text Spoke with [facility] Care Facility where pt resides and given the date and time of [employer] video visit with Dr. Shultz at 8:20 am on 08/22/24. This information will be relayed to pt. Normal [facility] Addendum Noteon 08-01-2024 Material Handler Floorperson Authentication Interface Message Text Addended by: FAISAL SIMEON on: 08/01/2024 02:57 PM Modules accepted: Level of Service Normal [facility] Patient Instructionson 08-01 Material Handler Floorperson Authentication Interface Message Text -Continue PT/OT -Please follow your appoitment with pain team and rheumatology -You are scheduled for bladder study on 09/30/24 -continue scheduled bowel care daily Normal [facility] Progress Noteson 07-31-2024 Material Handler Floorperson Authentication Interface Message Text Documentation: Mode: Video Consent: This visit was initiated by the patient. Audio and visual communication was utilized in real-time. I confirmed understanding of risks and benefits of telehealth visits and obtained consent to proceed with the telemedicine visit. Location of Patient: Nursing Facility Time-Based Billing Justifications: Charting in [facility] Patient visit (including performing a [...] following spinal surgery ~2 yrs ago in [place] . In 2019, pt had his first back surgery performed by [facility] which was an interbody fusion. 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 At that point, the hospital took the hardware out and did not replace it with the goal of treating the infection. 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 After the infection was treated, [facility] extended his fusion, decompressed the back, and replaced all hardware. At that time he lost all motor and sensation to his lower extremities. He was independent uptill december 2021 till his last spine surgery two year ago.Since 2021 he is in [facility] and [facility] so far. Currently SNF in [facility]. Last seen on 06/13/24 in clinic and recommendations was: -Continue PT/OT -Bowel care: schedule bowel care once/day (either after breakfast or dinner) - using suppository and manual stimulation over commode chair will be more helpful than over bed . - Continue skin care - Follow [facility] service consult( we requested today ) [...] healing- being followed with wound care at [facility]. -Continued PT/OT in [facility] -Spine team see him after MRI spine [...] to display Other SOCIAL Home situation: NA PERMIT TECHNICIAN/RN: Currently in [facility] DME: Power wheelchair, manual wheelchair [...] sev (more content not included)... Normal [facility] MR C-SPINE W/Oon 07-11-2024 MR C-SPINE [...] the right cerebellum. 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 MACRO: None [facility] MR T-SPINE W/Oon 07-11-2024 MR T-SPINE W/O [...] T5 and T2. MACRO: None Normal [facility] MR Thoracic spine WO contras ton [...] of T11, T5 and T2. MACRO: None [facility] MR Thoracic spine WO contras tOrdered By: Del Leslie on 07-11-2024 [facility] Work Phone: No Panel Informationon 07-10 Radiology Study observation (narrative) [facility] Basic Metabolic Profile (BMP )on 07-04-2024 BUN/CRE 18.2 RATIO Normal 10-20 [facility] Comment on above: Order Comment: SRIKAN[facility] TER SPECIMEN Performed By: #### L 400.0001, M1.2199 #### [facility] Laboratory [address] [place], [address] CA,Total 8.6 mg/dL Normal 8.5-10.1 [facility] Comment on above: Order Comment: SRIKANTH TER SPECIMEN Performed By: #### L 400.0001, M1.0 #### [facility] [address] [place], [address] Chloride [Moles/Vol] 108 mmol/L High 98-[address] [facility] Comment on above: Order Comment: SRIKANTH TER SPECIMEN Performed By: #### L 400.0001, M1.0 #### [facility] [address] [place], [address] CO2 [Moles/Vol] 25.0 mmol/L Normal 21.0-32.0 [facility] Comment on above: Order Comment: SRIKANTH TER SPECIMEN Performed By: #### L 400.0001, M100.2199 #### [facility] [address] [place], [address] Creatinine [Mass/Vol] 0.50 mg/dL Low 0.70-1.30 [facility] Comment on above: Order Comment: SRIKANTH TER SPECIMEN Result Comment: The validity of the calculated GFR GFRAA in patients over 70 years has not been determined. Clinical correlation is essential. Performed By: #### L 400.0001, #### [facility] [address] [place], [address] EST GFR - AA 219 mL/min Normal >60 [facility] Comment on above: Order Comment: SRIKANTH TER SPECIMEN Result Comment: Afri can Cameroonian GFR Calc Performed By: #### L 400.0001, #### [facility] [address] [place], [address] GAP 7 Normal 5-15 [facility] Comment on above: Order Comment: SRIKANTH TER SPECIMEN Performed By: #### L 400.0001, #### [facility] [address] [place], [address] GFR/1.73 sq M.predicted among non-blacks MDRD (S/P/Bld) [Vol rate/Area] 181 mL/min/{1.73_m2} Normal >60 [facility] Comment on above: Order Comment: SRIKANTH TER SPECIMEN Result Comment: Non- GFR Calc Performed By: #### L 400.0001, #### [facility] [address] [place], [address] Glucose [Mass/Vol] 86 mg/dL Normal 74-106 [facility] Comment on above: Order Comment: SRIKANTH TER SPECIMEN Performed By: #### L 400.0001, #### [facility] [address] [place], [address] Potassium [Moles/Vol] 3.8 mmol/L Normal 3.5-5.1 [facility] Comment on above: Order Comment: SRIKANTH TER SPECIMEN Performed By: #### L 400.0001, #### [facility] [address] [place], [address] Sodium [Moles/Vol] 140 mmol/L Normal 136-145 [facility] Comment on above: Order Comment: SRIKANTH TER SPECIMEN Performed By: #### L 400.0001, #### [facility] [address] [place], [address] Urea nitrogen [Mass/Vol] 9 mg/dL Normal 7-18 [facility] Comment on above: Order Comment: SRIKANTH TER SPECIMEN Performed By: #### L 400.0001, #### [facility] [address] [place], [address] CBC-Complete Blood Cnt No Di ffon 07-04-2024 Erythrocyte distribution width (RBC) [Ratio] 14.8 % High 11.6-14.6 [facility] Comment on above: Order Comment: SRIKANTH TER SPECIMEN Performed By: #### L 400.0001, #### [facility] [address] [place], [address] Hematocrit (Bld) [Volume fraction] 39.4 % Low 40-54 [facility] Comment on above: Order Comment: SRIKANTH TER SPECIMEN Performed By: #### L 400.0001, #### [facility] [address] [place], [address] Hemoglobin (Bld) [Mass/Vol] 12.7 g/dL Low 13.0-16.5 [facility] Comment on above: Order Comment: SRIKANTH TER SPECIMEN Performed By: #### L 400.0001, #### [facility] [address] [place], [address] MCH (RBC) [Entitic mass] 30.3 pg Normal 27.0-32.0 [facility] Comment on above: Order Comment: SRIKANTH TER SPECIMEN Performed By: #### L 400.0001, #### [facility] [address] [place], [address] MCHC (RBC) [Mass/Vol] 32.2 g/dL Normal 32-36 [facility] Comment on above: Order Comment: SRIKANTH TER SPECIMEN Performed By: #### L 400.0001, #### [facility] [address] [place], [address] MCV (RBC) [Entitic vol] 94.0 fL Normal 80-94 [facility] Comment on above: Order Comment: SRIKANTH TER SPECIMEN Performed By: #### L 400.0001, #### [facility] [address] [place], [address] Platelet mean volume (Bld) [Entitic vol] 11.0 fL Normal 6.2-12.0 [facility] Comment on above: Order Comment: SRIKANTH TER SPECIMEN Performed By: #### L 400.0001, #### [facility] [address] [place], [address] Platelets (Bld) [#/Vol] 260 10*3/uL Normal 150-450 [facility] Comment on above: Order Comment: SRIKANTH TER SPECIMEN Performed By: #### L 400.0001, #### [facility] [address] [place], [address] RBC (Bld) [#/Vol] 4.19 10*6/uL Low 4.6-6.2 [facility] Comment on above: Order Comment: SRIKANTH TER SPECIMEN Performed By: #### L 400.0001, #### [facility] [address] [place], [address] RDW SD 51.5 fl High 35.1-43.9 [facility] Comment on above: Order Comment: SRIKANTH TER SPECIMEN Performed By: #### L 400.0001, M100.0 #### [facility] [address] [place], [address] WBC (Bld) [#/Vol] 7.4 10*3/uL Normal 4.4-11.0 [facility] Comment on above: Order Comment: SRIKANTH TER SPECIMEN Performed By: #### L 400.0001, M100.2200 #### [facility] [address] [place], [address] BD BONE DENSITY SURVEYon BD BONE DENSITY SURVEY EXAMINATION: BD B ONE DENSITY SURVEY 07/01/2024 11:31 AM CLINICAL HISTORY: sacral insufficiency ASSOCIATED DIAGNOSIS: Sacral insufficiency fracture, initial encounter ADDITIONAL CLINICAL INFORMATION:Indicatio ns: History of Fracture (Adult) TREATMENTS: ORDERING PROVIDER: OTIS MEJIA TECHNOLOGISTS NOTE: TECHNIQUE: Quantitative digital radiography for DEXA bone mineral assessment was performed using the [employer] densitometer. Following are the results for your [...] online ([email or web address].[email or web address] via a link on the [employer] (Offers.com) screen. The model calculates the 10-yr probability of hip fracture or any major osteoporotic fracture (vertebral, hip, forearm, or humerus fracture), using clinical populations, and applies only to previously-untreated patients. (FRAX-friendly) T-scores, as calculated using the [employer] link, should be used in the model. [...] the expected range for age. Normal [facility] Urine Cultureon 06-17-2024 [facility] Pseudomonas aeruginosa Nova Count 80,000-100,000 Pseudomonas aeruginosa: REACTION Cefepime Islt HARINDER 2 S Ciprofloxacin Islt HARINDER 1 S Imipenem Islt HARINDER 1 S levoFLOXacin Islt HARINDER 4 I Pip+Tazo Islt HARINDER <=4 S Tobramycin Islt HARINDER 2 S Normal [facility] Comment on above: Performed By: #### L 100.0500, L500.4050, L501.6710, L101.9900 #### [facility] [address] [place], [place], [address] 36on 06-16-2024 36 Scheduled appointment Normal [facility] 36 [facility] is calling in again wanting to rescheduled they can be reached at the office anytime before 3pm. Please advise and thank you [facility] Addendum Noteon 06-16-2024 Material Handler Floorperson Authentication Interface Message Text Addended by: FAISAL SIMEON on: 06/16/2024 09:13 PM Modules accepted: Level of Service Normal [facility] 36on 06-15-2024 36 LM for [facility] to call the office to discuss the pt Normal [facility] 36 Name of caller: Dax banks Contact phone number: [phone] Relationship to Patient: [facility] Provider: chepe Practice: pain management Chief Complaint/Reason for Call: [facility] is calling in wanting to speak to the main office. Please advise and thank you Best time of day caller can be reached: any Patient advised that office/PCP has 24-48 business hours to return their call: Yes Normal [facility] Urinalysis, Completeon 06-15 RBC 25-50 SEEN Normal 0-5 [facility] Comment on above: Order Comment: 301.2 Performed By: #### L 100.0500, L500.4050, L501.6710, L101.9900 #### [facility] [address] [place], [address] BACTERIA 2+ /hpf Normal None Seen [facility] Comment on above: Order Comment: 301.2 Performed By: #### L 100.0500, L500.4050, L501.6710, L101.9900 #### [facility] [address] [place], [address] WBC 25-50 SEEN Normal 0-5 [facility] Comment on above: Order Comment: 301.2 Performed By: #### L 100.0500, L500.4050, L501.6710, L101.9900 #### [facility] [address] [place], [address] EPI,SQUAMOUS 0 SEEN Normal 0-5 [facility] Comment on above: Order Comment: 301.2 Performed By: #### L 100.0500, L500.4050, L501.6710, L101.9900 #### [facility] [address] [place], [address] Mucus Ql (Urine sed) 0 SEEN Normal [facility] Comment on above: Order Comment: 301.2 Performed By: #### L 100.0500, L500.4050, L501.6710, L101.9900 #### [facility] [address] [place], [address] Telephone Encounteron 2023 Material Handler Floorperson Authentication Interface Message Text RTC to pt, left voice mail. Vladimir Borden [facility] [employer] Supervisor [phone] Normal [facility] Patient Instructionson 06-13 Material Handler Floorperson Authentication Interface Message Text -Continue PT/OT -Bowel care: schedule bowel care once/day (either after breakfast or dinner) - using suppository and manual stimulation over commode chair will be more helpful than over bed . - Continue skin care - Follow [facility] service consult( we requested today ) for benefits eligibility - Bladder: We ordered today Urodynamic study for your bladder evaluation (to see your bladder status post spinal cord injury) Normal [facility] Progress Noteson 06-13-2024 Material Handler Floorperson Authentication Interface Message Text Patient was identified by name and date of . Evelio Grey Normal [facility] Progress Noteson 06-12-2024 Material Handler Floorperson Authentication Interface Message Text SPINAL CORD INJURY [...] following spinal surgery ~2 yrs ago in [place] . In 2019, pt had his first back surgery performed by [facility] which was an interbody fusion. 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 At that point, the hospital took the hardware out and did not replace it with the goal of treating the infection. 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 After the infection was treated, [facility] extended his fusion, decompressed the back, and replaced all hardware. At that time he lost all motor and sensation to his lower extremities. He was independent uptill december 2021 till his last spine surgery two year ago Patient was accompanied by brother . The patient gave permission to discuss their medical information, including PHI, in their presence. Since 2021 he is in [facility] and he changes 5 [facility] so far. Currently SNF in [facility]. He has Ureter stent - recently at [facility] Medication, PMHx/PSHx, Fam Hx, Allergy, Problem [...] to display Other SOCIAL Home situation: NA PERMIT TECHNICIAN/RN: Currently in [facility] DME: Power wheelchair, manual wheelchair [...] 01/23/2022 (more content not included)... Normal [facility] CBC-Complete Blood Cnt No Di ffon 05-30-2024 Erythrocyte distribution width (RBC) [Ratio] 15.4 % High 11.6-14.6 [facility] Comment on above: Order Comment: SRIKANTH TER SPECIMEN Performed By: #### L 400.0001, M100.2200 #### [facility] [address] [place], [address] Hematocrit (Bld) [Volume fraction] 36.7 % Low 40-54 [facility] Comment on above: Order Comment: SRIKANTH TER SPECIMEN Performed By: #### L 400.0001, #### [facility] [address] [place], [address] Hemoglobin (Bld) [Mass/Vol] 12.0 g/dL Low 13.0-16.5 [facility] Comment on above: Order Comment: SRIKANTH TER SPECIMEN Performed By: #### L 400.0001, #### [facility] [address] [place], [address] MCH (RBC) [Entitic mass] 30.5 pg Normal 27.0-32.0 [facility] Comment on above: Order Comment: SRIKANTH TER SPECIMEN Performed By: #### L 400.0001, #### [facility] [address] [place], [address] MCHC (RBC) [Mass/Vol] 32.7 g/dL Normal 32-36 [facility] Comment on above: Order Comment: SRIKANTH TER SPECIMEN Performed By: #### L 400.0001, #### [facility] [address] [place], [address] MCV (RBC) [Entitic vol] 93.1 fL Normal 80-94 [facility] Comment on above: Order Comment: SRIKANTH TER SPECIMEN Performed By: #### L 400.0001, #### [facility] [address] [place], [address] Platelet mean volume (Bld) [Entitic vol] 11.1 fL Normal 6.2-12.0 [facility] Comment on above: Order Comment: SRIKANTH TER SPECIMEN Performed By: #### L 400.0001, #### [facility] [address] [place], [address] Platelets (Bld) [#/Vol] 219 10*3/uL Normal 150-450 [facility] Comment on above: Order Comment: SRIKANTH TER SPECIMEN Performed By: #### L 400.0001, #### [facility] [address] [place], [address] RBC (Bld) [#/Vol] 3.94 10*6/uL Low 4.6-6.2 [facility] Comment on above: Order Comment: SRIKANTH TER SPECIMEN Performed By: #### L 400.0001, #### [facility] [address] [place], [address] RDW SD 53.4 fl High 35.1-43.9 [facility] Comment on above: Order Comment: SRIKANTH TER SPECIMEN Performed By: #### L 400.0001, #### [facility] [address] [place], [address] WBC (Bld) [#/Vol] 5.9 10*3/uL Normal 4.4-11.0 [facility] Comment on above: Order Comment: SRIKANTH TER SPECIMEN Performed By: #### L 400.0001, #### [facility] [address] [place], [address] Comprehensive Metabolic Prof ilon 05-30-2024 Albumin [Mass/Vol] 2.6 g/dL Low 3.2-5.0 [facility] Comment on above: Order Comment: SRIKANTH TER SPECIMEN Performed By: #### L 400.0001, #### [facility] [address] [place], [address] Albumin/Globulin [Mass ratio] 0.6 {ratio} Low 0.9-2.4 [facility] Comment on above: Order Comment: SRIKANTH TER SPECIMEN Performed By: #### L 400.0001, #### [facility] [address] [place], [address] ALK P 178 U/L High 45-117 [facility] Comment on above: Order Comment: SRIKANTH TER SPECIMEN Performed By: #### L 400.0001, #### [facility] [address] [place], [address] ALT [Catalytic activity/Vol] 24 U/L Normal 16-61 [facility] Comment on above: Order Comment: SRIKANHT TER SPECIMEN Performed By: #### L 400.0001, #### [facility] [address] [place], [address] AST [Catalytic activity/Vol] 19 U/L Normal 15-37 [facility] Comment on above: Order Comment: SRIKANTH TER SPECIMEN Performed By: #### L 400.0001, #### [facility] [address] [place], [address] Bilirubin [Mass/Vol] 0.60 mg/dL Normal 0.20-1.[address] [facility] Comment on above: Order Comment: SRIKANTH TER SPECIMEN Result Comment: For patients on eltrombopag therapy, use of Dimension [place] TBIL is not recommended. Performed By: #### L 400.0001, #### [facility] [address] [place], [address] BUN/CRE 15.9 RATIO Normal 10-20 [facility] Comment on above: Order Comment: SRIKANTH TER SPECIMEN Performed By: #### L 400.0001, #### [facility] [address] [place], [address] CA,Total 8.6 mg/dL Normal 8.5-10.1 [facility] Comment on above: Order Comment: SRIKANTH TER SPECIMEN Performed By: #### L 400.0001, #### [facility] [address] [place], [address] Chloride [Moles/Vol] 108 mmol/L High 98-[address] [facility] Comment on above: Order Comment: SRIKANTH TER SPECIMEN Performed By: #### L 400.0001, #### [facility] [address] [place], [address] CO2 [Moles/Vol] 23.0 mmol/L Normal 21.0-32.0 [facility] Comment on above: Order Comment: SRIKANTH TER SPECIMEN Performed By: #### L 400.0001, #### [facility] [address] [place], [address] Creatinine [Mass/Vol] 0.50 mg/dL Low 0.70-1.30 [facility] Comment on above: Order Comment: SRIKANTH TER SPECIMEN Result Comment: The validity of the calculated GFR GFRAA in patients over 70 years has not been determined. Clinical correlation is essential. Performed By: #### L 400.0001, #### [facility] [address] [place], [address] EST GFR - AA 214 mL/min Normal >60 [facility] Comment on above: Order Comment: SRIKANTH TER SPECIMEN Result Comment: Afri can Cameroonian GFR Calc Performed By: #### L 400.0001, #### [facility] [address] [place], [address] GAP 6 Normal 5-15 [facility] Comment on above: Order Comment: SRIKANTH TER SPECIMEN Performed By: #### L 400.0001, #### [facility] [address] [place], [address] GFR/1.73 sq M.predicted among non-blacks MDRD (S/P/Bld) [Vol rate/Area] 177 mL/min/{1.73_m2} Normal >60 [facility] Comment on above: Order Comment: SRIKANTH TER SPECIMEN Result Comment: Non- GFR Calc Performed By: #### L 400.0001, #### [facility] [address] [place], [address] Globulin (S) [Mass/Vol] 4.2 g/dL Normal 2.2-4.2 [facility] Comment on above: Order Comment: SRIKANTH TER SPECIMEN Performed By: #### L 400.0001, #### [facility] [address] [place], [address] Glucose [Mass/Vol] 185 mg/dL High 74-106 [facility] Comment on above: Order Comment: SRIKANTH TER SPECIMEN Result Comment: Fast ing Glucose result greater than or equal to 126 mg/dL suggests DIABETES MELLITUS per A.D.A. criteria. Performed By: #### L 400.0001, #### [facility] [address] [place], [address] Potassium [Moles/Vol] 3.8 mmol/L Normal 3.5-5.1 [facility] Comment on above: Order Comment: SRIKANTH TER SPECIMEN Performed By: #### L 400.0001, #### [facility] [address] [place], [address] Sodium [Moles/Vol] 137 mmol/L Normal 136-145 [facility] Comment on above: Order Comment: SRIKANTH TER SPECIMEN Performed By: #### L 400.0001, #### [facility] [address] [place], [address] T PROT 6.8 g/dL Normal 6.4-8.2 [facility] Comment on above: Order Comment: SRIKANTH TER SPECIMEN Performed By: #### L 400.0001, #### [facility] [address] [place], [address] Urea nitrogen [Mass/Vol] 8 mg/dL Normal 7-18 [facility] Comment on above: Order Comment: SRIKANTH TER SPECIMEN Performed By: #### L 400.0001, M100.2200 #### [facility] [address] [place], [address] Bacteria identified Cx Nom ( Bld)on 05-22-2024 Interpretation and review of laboratory results Normal [facility] Blood Collection Site: Left Arm [facility] Blood Collection Site: Left Antecubital [facility] CBC panel Auto (Bld)on 05-22 Erythrocyte distribution width (RBC) [Ratio] 15.1 % High 11.5 - 15.0 % [facility] Hematocrit (Bld) [Volume fraction] 38.4 % Low 40.0 - 52.0 % [facility] Hemoglobin (Bld) [Mass/Vol] 12.8 g/dL Low 13.0 - 18.0 g/dL [facility] Interpretation and review of laboratory results Abnormal [facility] MCH (RBC) [Entitic mass] 30.4 pg 26. 0 - 34.0 pg [facility] MCHC (RBC) [Mass/Vol] 33.3 % 30.5 - 36.0 % [facility] MCV (RBC) [Entitic vol] 91.2 fL 77.0 - 99.0 fL [facility] Platelet mean volume (Bld) [Entitic vol] 10.6 fL 9.0 - 12.7 fL [facility] Platelets (Bld) [#/Vol] 209 10*3/uL 140 - 440 10*3/uL [facility] RBC (Bld) [#/Vol] 4.21 10*6/uL Low 4.40 - 5.9 0 10*6/uL [facility] WBC (Bld) [#/Vol] 6.4 10*3/uL 3.6 - 10.7 10*3/uL [facility] Comprehensive metabolic 1998 panelon 05-22-2024 Albumin [Mass/Vol] 3.1 g/dL Low 3.5 - 5.0 g/dL [facility] ALP [Catalytic activity/Vol] 151 U/L High 38 - 126 U/L [facility] ALT [Catalytic activity/Vol] 22 U/L 0 - 49 U/L [facility] Anion gap [Moles/Vol] 5 mmol/L 3 - 13 mmol/L [facility] AST [Catalytic activity/Vol] 25 U/L 15 - 46 U/L [facility] Bilirubin [Mass/Vol] 0.6 mg/dL 0.2 - 1 .3 mg/dL [facility] Calcium [Mass/Vol] 8.4 mg/dL 8.4 - 10. 4 mg/dL [facility] Chloride [Moles/Vol] 107 mmol/L 98 - 10 7 mmol/L [facility] CO2 [Moles/Vol] 22 mmol/L 22 - 30 mmol/L [facility] Creatinine [Mass/Vol] 0.54 mg/dL Low 0.66 - 1.25 mg/dL [facility] GFR/1.73 sq M.predicted (S/P/Bld) [Vol rate/Area] - PINF [facility] Comment on above: Calculation based on the Chronic Kidney Disease Epidemiology Collaboration (CKD-EPI) equation refit without adjustment for race Glucose [Mass/Vol] 144 mg/dL High 70 - 100 mg/dL [facility] Interpretation and review of laboratory results Abnormal [facility] Potassium [Moles/Vol] 3.9 mmol/L 3.5 - 5.1 mmol/L [facility] Protein [Mass/Vol] 6.3 g/dL 6.3 - 8.2 g/dL [facility] Sodium [Moles/Vol] 135 mmol/L 135 - 145 mmol/L [facility] Urea nitrogen [Mass/Vol] 13 mg/dL 9 - 20 mg/dL [facility] Laboratory - Chemistry and C hemistry - challengeon 05-22-2024 Glucose [Mass/Vol] 177 mg/dL High 70 - 100 mg/dL [facility] Glucose [Mass/Vol] 325 mg/dL High 70 - 100 mg/dL [facility] Glucose [Mass/Vol] 133 mg/dL High 70 - 100 mg/dL [facility] Laboratory - Microbiology an d Antimicrobial susceptibilityon 05-22-2024 Bacteria identified Cx Nom (Bld) No growth at 5 days [facility] No Panel Informationon 05-22 Interpretation and review of laboratory results Abnormal [facility] Performed by: [facility] [employer], [address] [place] [address] CLIA ID: [id number] [facility] Interpretation and review of laboratory results Abnormal [facility] Performed by: [facility] [employer] [facility], [address] [place] [id number] CLIA ID: [id number] [facility] Interpretation and review of laboratory results Abnormal [facility] Performed by: [facility], [address] [place] [address], [place] [address] CLIA ID: [id number] [facility] CBC panel Auto (Bld)on 05-21 Erythrocyte distribution width (RBC) [Ratio] 15.0 % 11.5 - 15.0 % [facility] Hematocrit (Bld) [Volume fraction] 37.5 % Low 40.0 - 52.0 % [facility] Hemoglobin (Bld) [Mass/Vol] 12.4 g/dL Low 13.0 - 18.0 g/dL [facility] Interpretation and review of laboratory results Abnormal [facility] MCH (RBC) [Entitic mass] 30.7 pg 26. 0 - 34.0 pg [facility] MCHC (RBC) [Mass/Vol] 33.1 % 30.5 - 36.0 % [facility] MCV (RBC) [Entitic vol] 92.8 fL 77.0 - 99.0 fL [facility] Platelet mean volume (Bld) [Entitic vol] 10.4 fL 9.0 - 12.7 fL [facility] Platelets (Bld) [#/Vol] 192 10*3/uL 140 - 440 10*3/uL [facility] RBC (Bld) [#/Vol] 4.04 10*6/uL Low 4.40 - 5.9 0 10*6/uL [facility] WBC (Bld) [#/Vol] 5.8 10*3/uL 3.6 - 10.7 10*3/uL [facility] Comprehensive metabolic 1998 panelon 05-21-2024 Albumin [Mass/Vol] 3.2 g/dL Low 3.5 - 5.0 g/dL [facility] ALP [Catalytic activity/Vol] 142 U/L High 38 - 126 U/L [facility] ALT [Catalytic activity/Vol] 21 U/L 0 - 49 U/L [facility] Anion gap [Moles/Vol] 8 mmol/L 3 - 13 mmol/L [facility] AST [Catalytic activity/Vol] 24 U/L 15 - 46 U/L [facility] Bilirubin [Mass/Vol] 0.5 mg/dL 0.2 - 1 .3 mg/dL [facility] Calcium [Mass/Vol] 8.5 mg/dL 8.4 - 10. 4 mg/dL [facility] Chloride [Moles/Vol] 109 mmol/L High 98 - 10 7 mmol/L [facility] CO2 [Moles/Vol] 18 mmol/L Low 22 - 30 mmol/L [facility] Creatinine [Mass/Vol] 0.46 mg/dL Low 0.66 - 1.25 mg/dL [facility] GFR/1.73 sq M.predicted (S/P/Bld) [Vol rate/Area] - PINF [facility] Comment on above: Calculation based on the Chronic Kidney Disease Epidemiology Collaboration (CKD-EPI) equation refit without adjustment for race Glucose [Mass/Vol] 157 mg/dL High 70 - 100 mg/dL [facility] Interpretation and review of laboratory results Abnormal [facility] Potassium [Moles/Vol] 3.9 mmol/L 3.5 - 5.1 mmol/L [facility] Protein [Mass/Vol] 6.2 g/dL Low 6.3 - 8.2 g/dL [facility] Sodium [Moles/Vol] 136 mmol/L 135 - 145 mmol/L [facility] Urea nitrogen [Mass/Vol] 11 mg/dL 9 - 20 mg/dL [facility] Laboratory - Chemistry and C hemistry - challengeon 05-21-2024 Glucose [Mass/Vol] 261 mg/dL High 70 - 100 mg/dL [facility] Glucose [Mass/Vol] 231 mg/dL High 70 - 100 mg/dL [facility] Glucose [Mass/Vol] 162 mg/dL High 70 - 100 mg/dL [facility] Glucose [Mass/Vol] 154 mg/dL High 70 - 100 mg/dL [facility] No Panel Informationon 05-21 Interpretation and review of laboratory results Abnormal [facility] Performed by: [facility] [employer] [facility], [address] [place] [address] CLIA ID: [id number] [facility] Interpretation and review of laboratory results Abnormal [facility] Performed by: [facility], [address] [place] [id number] CLIA ID: [id number] [facility] Interpretation and review of laboratory results Abnormal [facility] Performed by: [facility], [address] [place] [id number] CLIA ID: [id number] [facility] Interpretation and review of laboratory results Abnormal [facility] Performed by: Malachibam Leeroy [facility], [address] [place] [id number] CLIA ID: [id number] [facility] Bacteria identified Cx Nom ( U)Ordered By: Codie Tang on 05-20-2024 Interpretation and review of laboratory results Abnormal [facility] Bacteria identified Cx Nom ( U)on 05-20-2024 Interpretation and review of laboratory results Abnormal [facility] CBC panel Auto (Bld)on 05-20 Erythrocyte distribution width (RBC) [Ratio] 15.1 % High 11.5 - 15.0 % [facility] Hematocrit (Bld) [Volume fraction] 37.0 % Low 40.0 - 52.0 % [facility] Hemoglobin (Bld) [Mass/Vol] 12.2 g/dL Low 13.0 - 18.0 g/dL [facility] Interpretation and review of laboratory results Abnormal [facility] MCH (RBC) [Entitic mass] 29.9 pg 26. 0 - 34.0 pg [facility] MCHC (RBC) [Mass/Vol] 33.0 % 30.5 - 36.0 % [facility] MCV (RBC) [Entitic vol] 90.7 fL 77.0 - 99.0 fL [facility] Platelet mean volume (Bld) [Entitic vol] 10.4 fL 9.0 - 12.7 fL [facility] Platelets (Bld) [#/Vol] 197 10*3/uL 140 - 440 10*3/uL [facility] RBC (Bld) [#/Vol] 4.08 10*6/uL Low 4.40 - 5.9 0 10*6/uL [facility] WBC (Bld) [#/Vol] 5.5 10*3/uL 3.6 - 10.7 10*3/uL [facility] Comprehensive metabolic 1998 panelon 05-20-2024 Albumin [Mass/Vol] 3.2 g/dL Low 3.5 - 5.0 g/dL [facility] ALP [Catalytic activity/Vol] 153 U/L High 38 - 126 U/L [facility] ALT [Catalytic activity/Vol] 22 U/L 0 - 49 U/L [facility] Anion gap [Moles/Vol] 4 mmol/L 3 - 13 mmol/L [facility] AST [Catalytic activity/Vol] 23 U/L 15 - 46 U/L [facility] Bilirubin [Mass/Vol] 0.6 mg/dL 0.2 - 1 .3 mg/dL [facility] Calcium [Mass/Vol] 8.5 mg/dL 8.4 - 10. 4 mg/dL [facility] Chloride [Moles/Vol] 109 mmol/L High 98 - 10 7 mmol/L [facility] CO2 [Moles/Vol] 21 mmol/L Low 22 - 30 mmol/L [facility] Creatinine [Mass/Vol] 0.50 mg/dL Low 0.66 - 1.25 mg/dL [facility] GFR/1.73 sq M.predicted (S/P/Bld) [Vol rate/Area] - PINF [facility] Comment on above: Calculation based on the Chronic Kidney Disease Epidemiology Collaboration (CKD-EPI) equation refit without adjustment for race Glucose [Mass/Vol] 207 mg/dL High 70 - 100 mg/dL [facility] Interpretation and review of laboratory results Abnormal [facility] Potassium [Moles/Vol] 4.0 mmol/L 3.5 - 5.1 mmol/L [facility] Protein [Mass/Vol] 6.4 g/dL 6.3 - 8.2 g/dL [facility] Sodium [Moles/Vol] 134 mmol/L Low 135 - 145 mmol/L [facility] Urea nitrogen [Mass/Vol] 10 mg/dL 9 - 20 mg/dL [facility] Laboratory - Chemistry and C hemistry - challengeon 05-20-2024 Glucose [Mass/Vol] 233 mg/dL High 70 - 100 mg/dL [facility] Glucose [Mass/Vol] 315 mg/dL High 70 - 100 mg/dL [facility] Glucose [Mass/Vol] 255 mg/dL High 70 - 100 mg/dL [facility] Glucose [Mass/Vol] 275 mg/dL High 70 - 100 mg/dL [facility] Laboratory - Microbiology an d Antimicrobial susceptibilityOrdered By: Codie Tang on 05-20-2024 Bacteria identified Cx Nom (U) >100,000 CFU/mL Proteus mirabilis Abnormal [facility] Comment on above: For identification a nd/or sensitivity, refer to culture collected on: 05/18/2024 [facility] 0016 [id number] Laboratory - Microbiology an d Antimicrobial susceptibilityon 05-20-2024 Bacteria identified Cx Nom (U) >100,000 CFU/mL Proteus mirabilis Abnormal [facility] Comment on above: This phenotype is singh ggestive of an ESBL-producing organism. Treatment with beta-lactam antibiotics other than carbapenems may not be effective. No Panel Informationon 05-20 Interpretation and review of laboratory results Abnormal [facility] Performed by: [facility], [address] [place] [address] CLIA ID: [id number] [facility] Interpretation and review of laboratory results Abnormal [facility] Performed by: [facility], [address] [place] [id number] CLIA ID: [id number] [facility] Interpretation and review of laboratory results Abnormal [facility] Performed by: [facility], [address] [place] [id number] CLIA ID: [id number] [facility] Interpretation and review of laboratory results Abnormal [facility] Performed by: [facility], [address] [place] [id number] CLIA ID: [id number] [facility] CBC panel Auto (Bld)on 05-19 Erythrocyte distribution width (RBC) [Ratio] 14.9 % 11.5 - 15.0 % [facility] Hematocrit (Bld) [Volume fraction] 35.8 % Low 40.0 - 52.0 % [facility] Hemoglobin (Bld) [Mass/Vol] 12.0 g/dL Low 13.0 - 18.0 g/dL [facility] Interpretation and review of laboratory results Abnormal [facility] MCH (RBC) [Entitic mass] 30.3 pg 26. 0 - 34.0 pg [facility] MCHC (RBC) [Mass/Vol] 33.5 % 30.5 - 36.0 % [facility] MCV (RBC) [Entitic vol] 90.4 fL 77.0 - 99.0 fL [facility] Platelet mean volume (Bld) [Entitic vol] 10.6 fL 9.0 - 12.7 fL [facility] Platelets (Bld) [#/Vol] 212 10*3/uL 140 - 440 10*3/uL [facility] RBC (Bld) [#/Vol] 3.96 10*6/uL Low 4.40 - 5.9 0 10*6/uL [facility] WBC (Bld) [#/Vol] 5.4 10*3/uL 3.6 - 10.7 10*3/uL [facility] Comprehensive metabolic 1998 panelOrdered By: Harman Dempsey on 05-19-2024 Albumin [Mass/Vol] 3.1 g/dL Low 3.5 - 5.0 g/dL [facility] ALP [Catalytic activity/Vol] 155 U/L High 38 - 126 U/L [facility] ALT [Catalytic activity/Vol] 19 U/L 0 - 49 U/L [facility] Anion gap [Moles/Vol] 3 mmol/L 3 - 13 mmol/L [facility] AST [Catalytic activity/Vol] 29 U/L 15 - 46 U/L [facility] Bilirubin [Mass/Vol] 0.6 mg/dL 0.2 - 1 .3 mg/dL [facility] Calcium [Mass/Vol] 8.4 mg/dL 8.4 - 10. 4 mg/dL [facility] Chloride [Moles/Vol] 110 mmol/L High 98 - 10 7 mmol/L [facility] CO2 [Moles/Vol] 21 mmol/L Low 22 - 30 mmol/L [facility] Creatinine [Mass/Vol] 0.44 mg/dL Low 0.66 - 1.25 mg/dL [facility] GFR/1.73 sq M.predicted (S/P/Bld) [Vol rate/Area] - PINF [facility] Comment on above: Calculation based on the Chronic Kidney Disease Epidemiology Collaboration (CKD-EPI) equation refit without adjustment for race Glucose [Mass/Vol] 212 mg/dL High 70 - 100 mg/dL [facility] Interpretation and review of laboratory results Abnormal [facility] Potassium [Moles/Vol] 3.4 mmol/L Low 3.5 - 5.1 mmol/L [facility] Protein [Mass/Vol] 6.3 g/dL 6.3 - 8.2 g/dL [facility] Sodium [Moles/Vol] 134 mmol/L Low 135 - 145 mmol/L [facility] Urea nitrogen [Mass/Vol] 11 mg/dL 9 - 20 mg/dL [facility] Laboratory - Chemistry and C hemistry - challengeon 05-19-2024 Glucose [Mass/Vol] 292 mg/dL High 70 - 100 mg/dL [facility] Glucose [Mass/Vol] 294 mg/dL High 70 - 100 mg/dL [facility] Glucose [Mass/Vol] 333 mg/dL High 70 - 100 mg/dL [facility] [employer] Glucose [Mass/Vol] 274 mg/dL High 70 - 100 mg/dL [facility] [employer] No Panel Informationon 05-19 Interpretation and review of laboratory results Abnormal [facility] Performed by: [facility] [employer] [facility], [address] [place] [id number] CLIA ID: [id number] [facility] [employer] [facility] Interpretation and review of laboratory results Abnormal [facility] Performed by: [facility] [employer] [facility], [address] [place] [id number] CLIA ID: [id number] [facility] [employer] [facility] Interpretation and review of laboratory results Abnormal [facility] Performed by: [facility] [employer] [facility], [address] [place] [id number] CLIA ID: [id number] [facility] [employer] [facility] Interpretation and review of laboratory results Abnormal [facility] Performed by: [facility] [employer] [facility], [address] [place] [id number] CLIA ID: [id number] [facility] Basic metabolic 1998 panelon 05-18-2024 Anion gap [Moles/Vol] 5 mmol/L 3 - 13 mmol/L [facility] [employer] Calcium [Mass/Vol] 8.6 mg/dL 8.4 - 10. 4 mg/dL [facility] [employer] Chloride [Moles/Vol] 108 mmol/L High 98 - 10 7 mmol/L [facility] CO2 [Moles/Vol] 22 mmol/L 22 - 30 mmol/L [facility] Creatinine [Mass/Vol] 0.64 mg/dL Low 0.66 - 1.25 mg/dL [facility] [employer] GFR/1.73 sq M.predicted (S/P/Bld) [Vol rate/Area] - PINF [facility] Comment on above: Calculation based on the Chronic Kidney Disease Epidemiology Collaboration (CKD-EPI) equation refit without adjustment for race Glucose [Mass/Vol] 143 mg/dL High 70 - 100 mg/dL [facility] Interpretation and review of laboratory results Abnormal [facility] Potassium [Moles/Vol] 4.5 mmol/L 3.5 - 5.1 mmol/L [facility] Sodium [Moles/Vol] 136 mmol/L 135 - 145 mmol/L [facility] Urea nitrogen [Mass/Vol] 13 mg/dL 9 - 20 mg/dL [facility] Slightly Hemolyzed. Interpret K+ with caution. [facility] CBC W Auto Differential pane l (Bld)Ordered By: Gayle Stafford on 05-18-2024 Basophils (Bld) [#/Vol] 0.1 10*3/uL 0.0 - 0.2 10*3/uL [facility] Basophils/100 WBC (Bld) 0.8 % 0.0 - 2.0 % [facility] Eosinophils (Bld) [#/Vol] 0.4 10*3/uL 0.0 - 0.5 10*3/uL [facility] Eosinophils/100 WBC (Bld) 5.4 % 0.0 - 6.0 % [facility] Erythrocyte distribution width (RBC) [Ratio] 15.6 % High 11.5 - 15.0 % [facility] Hematocrit (Bld) [Volume fraction] 38.7 % Low 40.0 - 52.0 % [facility] Hemoglobin (Bld) [Mass/Vol] 12.5 g/dL Low 13.0 - 18.0 g/dL [facility] Immature granulocytes (Bld) [#/Vol] 0.0 10*3/uL NINF - 0.1 10*3/uL [facility] Immature granulocytes/100 WBC (Bld) 0.4 % 0.0 - 2.0 % [facility] Interpretation and review of laboratory results Abnormal [facility] Lymphocytes (Bld) [#/Vol] 2.2 10*3/uL 1.0 - 4.3 10*3/uL [facility] Lymphocytes/100 WBC (Bld) 28.0 % 15.0 - 45.0 % [facility] MCH (RBC) [Entitic mass] 30.3 pg 26. 0 - 34.0 pg [facility] MCHC (RBC) [Mass/Vol] 32.3 % 30.5 - 36.0 % [facility] MCV (RBC) [Entitic vol] 93.7 fL 77.0 - 99.0 fL [facility] Monocytes (Bld) [#/Vol] 0.7 10*3/uL 0.0 - 0.9 10*3/uL [facility] Monocytes/100 WBC (Bld) 9.6 % 5.0 - 13.0 % [facility] Neutrophils (Bld) [#/Vol] 4.3 10*3/uL 1.8 - 7.5 10*3/uL [facility] Neutrophils/100 WBC (Bld) 55.8 % 38.0 - 82.0 % [facility] Nucleated RBC/100 WBC (Bld) [Ratio] 0.0 % [facility] Platelet mean volume (Bld) [Entitic vol] 10.9 fL 9.0 - 12.7 fL [facility] Platelets (Bld) [#/Vol] 222 10*3/uL 140 - 440 10*3/uL [facility] RBC (Bld) [#/Vol] 4.13 10*6/uL Low 4.40 - 5.9 0 10*6/uL [facility] WBC (Bld) [#/Vol] 7.7 10*3/uL 3.6 - 10.7 10*3/uL [facility] Laboratory - Chemistry and C hemistry - challengeon 05-18-2024 Glucose [Mass/Vol] 140 mg/dL High 70 - 100 mg/dL [facility] No Panel Informationon 05-18 Interpretation and review of laboratory results Abnormal [facility] Performed by: [facility], [address] [place] [address] CLIA ID: [id number] [facility] Urinalysis complete panel (U )Ordered By: Franchesca Garnica on 05-18-2024 Bacteria LM.HPF (Urine sed) [#/Area] Many Abnormal Negative /HPF [facility] Bilirubin Ql (U) Negative Negative mg/dL [facility] Clarity (U) Turbid Abnormal Clear [facility] Color (U) Yellow Lt. Yellow [facility] Epithelial cells.squamous LM.HPF (Urine sed) [#/Area] Negative [facility] Glucose Ql (U) Normal Normal (<70) mg/dL [facility] Hemoglobin Ql (U) 0.5 mg/dL Abnormal Negative [facility] Hyaline casts Auto (Urine sed) [#/Area] Negative Negative /LPF [facility] Interpretation and review of laboratory results Abnormal [facility] Ketones (U) [Mass/Vol] Negative Negat mary grace mg/dL [facility] Leukocyte clumps LM.HPF (Urine sed) [#/Area] Many Abnormal Negative /HPF [facility] Leukocyte esterase Test strip Ql (U) 500 Abnormal Negative Da/uL [facility] Mucus LM.HPF (Urine sed) [#/Area] Few Negative /LPF [facility] Nitrite Ql (U) Positive Abnormal Negative [facility] pH (U) 6.5 [pH] 5.0 - 8.0 pH [facility] Protein (U) [Mass/Vol] 50 mg/dL Abnormal Negative [facility] RBC LM.HPF (Urine sed) [#/Area] 51-100 Abnormal [facility] Specific gravity (U) [Rel density] 1.015 1.005 - 1.030 [facility] Urobilinogen (U) [Mass/Vol] Normal Normal (0-1) mg/dL [facility] WBC LM.HPF (Urine sed) [#/Area] /[HPF] Abnormal [facility] Basic metabolic 1998 panelon 05-17-2024 Anion gap [Moles/Vol] 6 mmol/L 3 - 13 mmol/L [facility] Calcium [Mass/Vol] 8.7 mg/dL 8.4 - 10. 4 mg/dL [facility] Chloride [Moles/Vol] 109 mmol/L High 98 - 10 7 mmol/L [facility] CO2 [Moles/Vol] 20 mmol/L Low 22 - 30 mmol/L [facility] Creatinine [Mass/Vol] 0.68 mg/dL 0.66 - 1.25 mg/dL [facility] GFR/1.73 sq M.predicted (S/P/Bld) [Vol rate/Area] - PINF [facility] Comment on above: Calculation based on the Chronic Kidney Disease Epidemiology Collaboration (CKD-EPI) equation refit without adjustment for race Glucose [Mass/Vol] 172 mg/dL High 70 - 100 mg/dL [facility] Interpretation and review of laboratory results Abnormal [facility] Potassium [Moles/Vol] 4.4 mmol/L 3.5 - 5.1 mmol/L [facility] Sodium [Moles/Vol] 136 mmol/L 135 - 145 mmol/L [facility] Urea nitrogen [Mass/Vol] 12 mg/dL 9 - 20 mg/dL [facility] CBC W Auto Differential pane l (Bld)Ordered By: Janice Carey on 05-17-2024 Basophils (Bld) [#/Vol] 0.0 10*3/uL 0.0 - 0.2 10*3/uL [facility] Basophils/100 WBC (Bld) 0.8 % 0.0 - 2.0 % [facility] Eosinophils (Bld) [#/Vol] 0.3 10*3/uL 0.0 - 0.5 10*3/uL [facility] Eosinophils/100 WBC (Bld) 7.4 % High 0.0 - 6.0 % [facility] Erythrocyte distribution width (RBC) [Ratio] 16.8 % High 11.5 - 15.0 % [facility] Hematocrit (Bld) [Volume fraction] 60.0 % High 40.0 - 52.0 % [facility] Hemoglobin (Bld) [Mass/Vol] 19.6 g/dL High 13.0 - 18.0 g/dL [facility] Immature granulocytes (Bld) [#/Vol] 0.0 10*3/uL NINF - 0.1 10*3/uL [facility] Immature granulocytes/100 WBC (Bld) 0.3 % 0.0 - 2.0 % [facility] Interpretation and review of laboratory results Abnormal [facility] Lymphocytes (Bld) [#/Vol] 1.0 10*3/uL 1.0 - 4.3 10*3/uL [facility] Lymphocytes/100 WBC (Bld) 26.9 % 15.0 - 45.0 % [facility] MCH (RBC) [Entitic mass] 30.1 pg 26. 0 - 34.0 pg [facility] MCHC (RBC) [Mass/Vol] 32.7 % 30.5 - 36.0 % [facility] MCV (RBC) [Entitic vol] 92.2 fL 77.0 - 99.0 fL [facility] Monocytes (Bld) [#/Vol] 0.2 10*3/uL 0.0 - 0.9 10*3/uL [facility] Monocytes/100 WBC (Bld) 6.8 % 5.0 - 13.0 % [facility] Neutrophils (Bld) [#/Vol] 2.0 10*3/uL 1.8 - 7.5 10*3/uL [facility] Neutrophils/100 WBC (Bld) 57.8 % 38.0 - 82.0 % [facility] Nucleated RBC/100 WBC (Bld) [Ratio] 0.0 % [facility] Platelet mean volume (Bld) [Entitic vol] 9.9 fL 9.0 - 12.7 fL [facility] Platelets (Bld) [#/Vol] 105 10*3/uL Low 140 - 440 10*3/uL [facility] RBC (Bld) [#/Vol] 6.51 10*6/uL High 4.40 - 5.9 0 10*6/uL [facility] WBC (Bld) [#/Vol] 3.5 10*3/uL Low 3.6 - 10.7 10*3/uL [facility] Laboratory - Chemistry and C hemistry - challengeon 05-17-2024 Lactate [Moles/Vol] 1.4 mmol/L 0.7 - 2. 0 mmol/L [facility] No Panel Informationon 05-17 Interpretation and review of laboratory results Normal [facility] Urinalysis complete panel (U )Ordered By: Madison Novak on 05-17-2024 Bacteria LM.HPF (Urine sed) [#/Area] Many Abnormal Negative /HPF [facility] Bilirubin Ql (U) Negative Negative mg/dL [facility] Clarity (U) Turbid Abnormal Clear [facility] Color (U) Yellow Lt. Yellow [facility] Epithelial cells.squamous LM.HPF (Urine sed) [#/Area] [facility]) Normal Normal (<70) mg/dL [facility] Hemoglobin Ql (U) 1.0 mg/dL Abnormal Negative [facility] Interpretation and review of laboratory results Abnormal [facility] Ketones (U) [Mass/Vol] Negative Negat mary grace mg/dL [facility] Leukocyte esterase Test strip Ql (U) 500 Abnormal Negative Da/uL [facility] Mucus LM.HPF (Urine sed) [#/Area] Few Negative /LPF [facility] Nitrite Ql (U) Positive Abnormal Negative [facility] pH (U) 8.0 [pH] 5.0 - 8.0 pH [facility] Protein (U) [Mass/Vol] 100 mg/dL Abnormal Negative [facility] RBC LM.HPF (Urine sed) [#/Area] 11-25 Abnormal [facility] Specific gravity (U) [Rel density] 1.016 1.005 - 1.030 [facility] Triple phosphate crystals LM.HPF (Urine sed) [#/Area] Few Abnormal Negative /HPF [facility] Urobilinogen (U) [Mass/Vol] Normal Normal (0-1) mg/dL [facility] WBC LM.HPF (Urine sed) [#/Area] /[HPF] Abnormal [facility] Progress Noteson 05-15-2024 Material Handler Floorperson Authentication Interface Message Text HISTORY OF PRESENT ILLNESS ----- 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 HIPAA: Verbal permission granted from patient to discuss case, including protected health information, in front of family / friends in room at the time of the evaluation. Anmol Reynolds is a very pleasant 63 year old male here as new patient for a second opinion of MRI results. In 2019, pt had his first back surgery performed by [facility] which was an interbody fusion. 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 At that point, the hospital took the hardware out and did not replace it with the goal of treating the infection. 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 After the infection was treated, [facility] extended his fusion, decompressed the back, [...] Resource Strain: Low Risk (04/24/2023) Received from [facility] Overall Financial Resource Strain (CARDIA) Difficulty of Paying Living Expenses: Not hard at all Food Insecurity: No Food Insecurity (05/05/2024) Received from [facility] Hun[facility] Vital Sign Worried About Running Out of Food in the Last Year: Never true Ran Out of Food in the Last Year: Never true Transportation Needs: No Transportation Needs (05/05/2024) Received from [facility] PRAPARE - Transportation Lack of Transportation (Medical): No Lack of Transportation (Non-Medical): No Intimate Partner Violence: Not At Risk (05/05/2024) Received from [facility] Humiliation, Afraid, Rape, and Kick questionnaire Fear [...] heal (more content not included)... Normal [facility] XR SACRUM-COCCYX 3 VIEWSon 0 05-12-2024 [...] 04:02 PM CLINICAL HISTORY: upright scoli - [place] [employer] DIAGNOSIS: Sacral insufficiency fracture, initial encounter ORDERING PROVIDER: [employer] NOTE: Best possible - Upright in chair, right lateral due to limitations of room layout and equipment COMPARISON: None FINDINGS: Dextroscoliosis of thoracic spine is noted. [place] angle measures 10.0 degrees. [place] is at T8 level. Fusion of lumbar [...] considered. Ureteral stents are noted. MACRO: None [facility] XR Sacrum and Coccyx ViewsOr dered By: Juan William on 05-12-2024 [facility] Work Phone: XR Thoracic and lumbar spine 2 Views for scoliosison 05-12-2024 EXAMINATION: XR SCOLIOSIS PA + LAT 2 OR 3 VIEWS 05/11/2024 04:02 PM CLINICAL HISTORY: upright scoli - [place] [employer] DIAGNOSIS: Sacral insufficiency fracture, initial encounter ORDERING PROVIDER: [employer] NOTE: Best possible - Upright in chair, right lateral due to limitations of room layout and equipment COMPARISON: None FINDINGS: Dextroscoliosis of thoracic spine is noted. [place] angle measures 10.0 degrees. [place] is at T8 level. Fusion of lumbar [...] 04:02 PM CLINICAL HISTORY: upright scoli - [place] [employer] DIAGNOSIS: Sacral insufficiency fracture, initial encounter ORDERING PROVIDER: [employer] NOTE: Best possible - Upright in chair, right lateral due to limitations of room layout and equipment COMPARISON: None FINDINGS: Dextroscoliosis of thoracic spine is noted. [place] angle measures 10.0 degrees. [place] is at T8 level. Fusion of lumbar [...] and fusion of L2-L3 segments. MACRO: None [facility] XR Sacrum and Coccyx Viewson 05-11-2024 Radiology Study observation (narrative) [facility] XR Thoracic and lumbar spine 2 Views for scoliosison 05-11-2024 Radiology Study observation (narrative) [facility] Telephone Encounteron 2023 [employer] Floor[employer] Authentication Interface Message Text Pt calling requesting provider to follow up regarding MRI. Pt was unable to provide telephone, address or SSN. No information was provided at this time. Normal [facility] Basic metabolic 1998 panelon 05-06-2024 Anion gap [Moles/Vol] 8 mmol/L 3 - 13 mmol/L [facility] Calcium [Mass/Vol] 8.4 mg/dL 8.4 - 10. 4 mg/dL [facility] Chloride [Moles/Vol] 105 mmol/L 98 - 10 7 mmol/L [facility] CO2 [Moles/Vol] 23 mmol/L 22 - 30 mmol/L [facility] Creatinine [Mass/Vol] 0.62 mg/dL Low 0.66 - 1.25 mg/dL [facility] GFR/1.73 sq M.predicted (S/P/Bld) [Vol rate/Area] - PINF [facility] Comment on above: Calculation based on the Chronic Kidney Disease Epidemiology Collaboration (CKD-EPI) equation refit without adjustment for race Glucose [Mass/Vol] 416 mg/dL High 70 - 100 mg/dL [facility] Interpretation and review of laboratory results Abnormal [facility] Potassium [Moles/Vol] 4.1 mmol/L 3.5 - 5.1 mmol/L [facility] Sodium [Moles/Vol] 136 mmol/L 135 - 145 mmol/L [facility] Urea nitrogen [Mass/Vol] 14 mg/dL 9 - 20 mg/dL [facility] CBC panel Auto (Bld)on 05-06 Erythrocyte distribution width (RBC) [Ratio] 14.5 % 11.5 - 15.0 % [facility] Hematocrit (Bld) [Volume fraction] 36.0 % Low 40.0 - 52.0 % [facility] Hemoglobin (Bld) [Mass/Vol] 12.1 g/dL Low 13.0 - 18.0 g/dL [facility] Interpretation and review of laboratory results Abnormal [facility] MCH (RBC) [Entitic mass] 30.3 pg 26. 0 - 34.0 pg [facility] MCHC (RBC) [Mass/Vol] 33.6 % 30.5 - 36.0 % [facility] MCV (RBC) [Entitic vol] 90.2 fL 77.0 - 99.0 fL [facility] Platelet mean volume (Bld) [Entitic vol] 10.8 fL 9.0 - 12.7 fL [facility] Platelets (Bld) [#/Vol] 273 10*3/uL 140 - 440 10*3/uL [facility] RBC (Bld) [#/Vol] 3.99 10*6/uL Low 4.40 - 5.9 0 10*6/uL [facility] WBC (Bld) [#/Vol] 6.8 10*3/uL 3.6 - 10.7 10*3/uL [facility] Laboratory - Chemistry and C hemistry - challengeon 05-06-2024 Glucose [Mass/Vol] 260 mg/dL High 70 - 100 mg/dL [facility] Glucose [Mass/Vol] 428 mg/dL High 70 - 100 mg/dL [facility] Glucose [Mass/Vol] 359 mg/dL High 70 - 100 mg/dL [facility] No Panel Informationon 05-06 Interpretation and review of laboratory results Abnormal [facility] Performed by: [facility], [address] [place] [id number] CLIA ID: [id number] [facility] Interpretation and review of laboratory results Abnormal [facility] Performed by: [facility], [address] [place] [id number] CLIA ID: [id number] [facility] Interpretation and review of laboratory results Abnormal [facility] Performed by: [facility], [address] [place] [id number] CLIA ID: [id number] [facility] Laboratory - Chemistry and C hemistry - challengeon 05-05-2024 Glucose [Mass/Vol] 176 mg/dL High 70 - 100 mg/dL [facility] Glucose [Mass/Vol] 166 mg/dL High 70 - 100 mg/dL [facility] Glucose [Mass/Vol] 236 mg/dL High 70 - 100 mg/dL [facility] No Panel Informationon 05-05 Interpretation and review of laboratory results Abnormal [facility] Performed by: [facility], [address] [place] [id number] CLIA ID: [id number] [facility] There is no interpretation needed for this exam. IMAGING Interpretation and review of laboratory results Abnormal [facility] Performed by: [facility], [address] [place] [id number] CLIA ID: [id number] [facility] Interpretation and review of laboratory results Abnormal [facility] Performed by: [facility], [address] [place] [id number] CLIA ID: [id number] [facility] [employer] Telephone Encounteron 2023 Material Handler Floorperson Authentication Interface Message Text Called pt and discussed his MRI L spine results. He has SCI rehab follow up scheduled. Recommended Spine Surgery opinion. No change in clinical condition from last visit. Vaishali Pierre, DO Normal [facility] [employer] Authentication Interface Message Text Called pt again. Staff at the SNF stated he was unable to come to the phone and asked for call back later in the day. Vaishali Pierre DO Normal [facility] Telephone Encounteron 2023 [employer] Floorperson Authentication Interface Message Text Called pt and reached staff, but he was unable to come to the phone. Will try again tomorrow. Vaishali Pierre, DO Normal [facility] CBC W Auto Differential pane l (Bld)on 04-20-2024 Erythrocyte distribution width (RBC) [Ratio] 14.8 % 11.5 - 15.0 % [facility] [employer] Hematocrit (Bld) [Volume fraction] 34.8 % Low 40.0 - 52.0 % [facility] [employer] Hemoglobin (Bld) [Mass/Vol] 11.3 g/dL Low 13.0 - 18.0 g/dL [facility] [employer] Interpretation and review of laboratory results Abnormal [facility] [employer] IPF 7 [facility] [employer] MCH (RBC) [Entitic mass] 30.5 pg 26. 0 - 34.0 pg [facility] [employer] MCHC (RBC) [Mass/Vol] 32.5 % 30.5 - 36.0 % [facility] [employer] MCV (RBC) [Entitic vol] 94.1 fL 77.0 - 99.0 fL [facility] [employer] Platelet mean volume (Bld) [Entitic vol] 11.6 fL 9.0 - 12.7 fL [facility] [employer] Platelets (Bld) [#/Vol] 121 10*3/uL Low 140 - 440 10*3/uL [facility] [employer] RBC (Bld) [#/Vol] 3.70 10*6/uL Low 4.40 - 5.9 0 10*6/uL [facility] [employer] WBC (Bld) [#/Vol] 6.4 10*3/uL 3.6 - 10.7 10*3/uL [facility] Comprehensive metabolic 1998 panelon 04-20-2024 Albumin [Mass/Vol] 2.5 g/dL Low 3.5 - 5.0 g/dL [facility] ALP [Catalytic activity/Vol] 94 U/L 38 - 126 U/L [facility] ALT [Catalytic activity/Vol] 15 U/L 0 - 49 U/L [facility] Anion gap [Moles/Vol] 6 mmol/L 3 - 13 mmol/L [facility] AST [Catalytic activity/Vol] 19 U/L 15 - 46 U/L [facility] Bilirubin [Mass/Vol] 0.4 mg/dL 0.2 - 1 .3 mg/dL [facility] Calcium [Mass/Vol] 7.6 mg/dL Low 8.4 - 10. 4 mg/dL [facility] Chloride [Moles/Vol] 108 mmol/L High 98 - 10 7 mmol/L [facility] CO2 [Moles/Vol] 23 mmol/L 22 - 30 mmol/L [facility] Creatinine [Mass/Vol] 0.44 mg/dL Low 0.66 - 1.25 mg/dL [facility] GFR/1.73 sq M.predicted MDRD (S/P/Bld) [Vol rate/Area] - PINF [facility] Glucose [Mass/Vol] 284 mg/dL High 70 - 100 mg/dL [facility] Interpretation and review of laboratory results Abnormal [facility] Potassium [Moles/Vol] 3.8 mmol/L 3.5 - 5.1 mmol/L [facility] Protein [Mass/Vol] 5.6 g/dL Low 6.3 - 8.2 g/dL [facility] Sodium [Moles/Vol] 138 mmol/L 135 - 145 mmol/L [facility] Urea nitrogen [Mass/Vol] 14 mg/dL 9 - 20 mg/dL [facility] Laboratory - Chemistry and C hemistry - challengeon 04-20-2024 Glucose [Mass/Vol] 282 mg/dL High 70 - 100 mg/dL [facility] Glucose [Mass/Vol] 398 mg/dL High 70 - 100 mg/dL [facility] Glucose [Mass/Vol] 323 mg/dL High 70 - 100 mg/dL [facility] Magnesium [Mass/Vol] 1.8 mg/dL 1.6 - 2 .3 mg/dL [facility] Laboratory - Hematology and Cell countson 04-20-2024 Eosinophils (Bld) [#/Vol] 0.3 10*3/uL 0.0 - 0.5 10*3/uL [facility] Eosinophils/100 WBC (Bld) 5 % 0 - 6 % [facility] Lymphocytes (Bld) [#/Vol] 2.0 10*3/uL 1.0 - 4.3 10*3/uL [facility] Lymphocytes/100 WBC (Bld) 32 % 15 - 45 % [facility] Monocytes (Bld) [#/Vol] 0.6 10*3/uL 0.0 - 0.9 10*3/uL [facility] Monocytes/100 WBC (Bld) 10 % 5 - 13 % [facility] Neutrophils (Bld) [#/Vol] 3.4 10*3/uL 1.8 - 7.5 10*3/uL [facility] RBC morphology finding Nom (Bld) Normal [facility] Segmented neutrophils/100 WBC (Bld) 53 % 38 - 82 % [facility] Laboratory - Microbiology an d Antimicrobial susceptibilityon 04-20-2024 SARS-CoV-2 (COVID-19) Ag IA.rapid Ql (Resp) Negative Negative [facility] No Panel Informationon 04-20 Interpretation and review of laboratory results Abnormal [facility] CV EPIPHANY [facility] Interpretation and review of laboratory results Abnormal [facility] Radiology Study observation (narrative) [facility] Interpretation and review of laboratory results Abnormal [facility] Eosinophils Manual 5 High 0 - 1 [facility] Interpretation and review of laboratory results Abnormal [facility] Lymphocytes Manual 32 [facility] Monocytes Manual 10 [facility] alth Neutrophils Manual 53 [facility] Interpretation and review of laboratory results Normal [facility] No Panel InformationOrdered By: Jax Wiggins on 04-20-2024 P [place] 10 degrees [facility] [employer] Work Phone: NM Interval 159 ms [facility] Work Phone: QRS [place] 28 degrees [facility] [employer] Work Phone: QRSD Interval 96 ms [facility] [employer] Work Phone: QT Interval 426 ms [facility] [employer] Work Phone: QTC Interval 477 ms [facility] [employer] Work Phone: T Wave [place] 28 degrees [employer] Work Phone: [facility] [employer] Work Phone: No Panel InformationOrdered By: Marie Howard on 04-20-2024 [facility] Work Phone: Phosphate [Moles/Vol]on 04-04 Phosphate [Mass/Vol] 2.8 mg/dL 2.5 - 4 .5 mg/dL [facility] SARS-CoV-2 (COVID-19) Ag IA. rapid Ql (Resp)on 04-20-2024 Interpretation and review of laboratory results Normal DDN Vital signsOrdered By: Seth Wiggins on 04-20-2024 Heart rate 75 /min bpm [employer] Work Phone: CBC W Auto Differential pane l (Bld)on 04-19-2024 Erythrocyte distribution width (RBC) [Ratio] 14.8 % 11.5 - 15.0 % [facility] Hematocrit (Bld) [Volume fraction] 35.0 % Low 40.0 - 52.0 % [facility] Hemoglobin (Bld) [Mass/Vol] 11.6 g/dL Low 13.0 - 18.0 g/dL [facility] IPF 8 [facility] MCH (RBC) [Entitic mass] 30.6 pg 26. 0 - 34.0 pg [facility] [employer] MCHC (RBC) [Mass/Vol] 33.1 % 30.5 - 36.0 % [facility] [employer] MCV (RBC) [Entitic vol] 92.3 fL 77.0 - 99.0 fL [facility] [employer] Platelet mean volume (Bld) [Entitic vol] 11.6 fL 9.0 - 12.7 fL [facility] [employer] Platelets (Bld) [#/Vol] 88 10*3/uL Low 140 - 440 10*3/uL [facility] [employer] RBC (Bld) [#/Vol] 3.79 10*6/uL Low 4.40 - 5.9 0 10*6/uL [facility] [employer] WBC (Bld) [#/Vol] 9.2 10*3/uL 3.6 - 10.7 10*3/uL [facility] [employer] Comprehensive metabolic 1998 panelon 04-19-2024 Albumin [Mass/Vol] 2.7 g/dL Low 3.5 - 5.0 g/dL [facility] ALP [Catalytic activity/Vol] 119 U/L 38 - 126 U/L [facility] ALT [Catalytic activity/Vol] 16 U/L 0 - 49 U/L [facility] Anion gap [Moles/Vol] 5 mmol/L 3 - 13 mmol/L [facility] AST [Catalytic activity/Vol] 19 U/L 15 - 46 U/L [facility] Bilirubin [Mass/Vol] 0.6 mg/dL 0.2 - 1 .3 mg/dL [facility] Calcium [Mass/Vol] 7.9 mg/dL Low 8.4 - 10. 4 mg/dL [facility] Chloride [Moles/Vol] 107 mmol/L 98 - 10 7 mmol/L [facility] CO2 [Moles/Vol] 26 mmol/L 22 - 30 mmol/L [facility] Creatinine [Mass/Vol] 0.44 mg/dL Low 0.66 - 1.25 mg/dL [facility] GFR/1.73 sq M.predicted MDRD (S/P/Bld) [Vol rate/Area] - PINF [facility] Glucose [Mass/Vol] 153 mg/dL High 70 - 100 mg/dL [facility] Interpretation and review of laboratory results Abnormal [facility] Potassium [Moles/Vol] 3.5 mmol/L 3.5 - 5.1 mmol/L [facility] Protein [Mass/Vol] 6.0 g/dL Low 6.3 - 8.2 g/dL [facility] Sodium [Moles/Vol] 138 mmol/L 135 - 145 mmol/L [facility] Urea nitrogen [Mass/Vol] 14 mg/dL 9 - 20 mg/dL [facility] Laboratory - Chemistry and C hemistry - challengeon 04-19-2024 Glucose [Mass/Vol] 305 mg/dL High 70 - 100 mg/dL [facility] Glucose [Mass/Vol] 232 mg/dL High 70 - 100 mg/dL [facility] Glucose [Mass/Vol] 163 mg/dL High 70 - 100 mg/dL [facility] Glucose [Mass/Vol] 155 mg/dL High 70 - 100 mg/dL [facility] Magnesium [Mass/Vol] 1.8 mg/dL 1.6 - 2 .3 mg/dL [facility] Laboratory - Hematology and Cell countson 04-19-2024 Band form neutrophils (Bld) [#/Vol] 0.1 10*3/uL High NINF - 0.0 10*3/uL [facility] Band form neutrophils/100 WBC (Bld) 1 % High NINF - 0 % [facility] Basophils (Bld) [#/Vol] 0.1 10*3/uL 0.0 - 0.2 10*3/uL [facility] Basophils/100 WBC (Bld) 1 % 0 - 2 % [facility] Eosinophils (Bld) [#/Vol] 0.4 10*3/uL 0.0 - 0.5 10*3/uL [facility] Eosinophils/100 WBC (Bld) 4 % 0 - 6 % [facility] Lymphocytes (Bld) [#/Vol] 1.2 10*3/uL 1.0 - 4.3 10*3/uL [facility] Lymphocytes/100 WBC (Bld) 13 % Low 15 - 45 % [facility] Monocytes (Bld) [#/Vol] 0.7 10*3/uL 0.0 - 0.9 10*3/uL [facility] Monocytes/100 WBC (Bld) 8 % 5 - 13 % [facility] Neutrophils (Bld) [#/Vol] 6.7 10*3/uL 1.8 - 7.5 10*3/uL [facility] RBC morphology finding Nom (Bld) abnormal [facility] Segmented neutrophils/100 WBC (Bld) 72 % 38 - 82 % [facility] Stomatocytes LM Ql (Bld) Slight Abnormal (none) [facility] Variant lymphocytes (Bld) [#/Vol] 0.1 10*3/uL High NINF - 0.0 10*3/uL [facility] Variant lymphocytes/100 WBC (Bld) 1 % High NINF - 0 % [facility] No Panel Informationon 04-19 Interpretation and review of laboratory results Abnormal [facility] Interpretation and review of laboratory results Abnormal [facility] Interpretation and review of laboratory results Abnormal [facility] Interpretation and review of laboratory results Abnormal [facility] Atypical Lymphocytes Manual 1 [facility] Bands Manual 1 [facility] Basophils Manual 1 [facility] alth Eosinophils Manual 4 High 0 - 1 [facility] Interpretation and review of laboratory results Abnormal [facility] Lymphocytes Manual 13 [facility] Monocytes Manual 8 [facility] alth Neutrophils Manual 71 [facility] Interpretation and review of laboratory results Normal [facility] Phosphate [Moles/Vol]on 04-04 Phosphate [Mass/Vol] 3.2 mg/dL 2.5 - 4 .5 mg/dL [facility] Bacteria identified Cx Nom ( Bld)on 04-18-2024 Interpretation and review of laboratory results Abnormal [facility] Bacteria identified Cx Nom ( Bld)Ordered By: Yani Martínez on 04-18-2024 Interpretation and review of laboratory results Abnormal [facility] CBC W Auto Differential pane l (Bld)Ordered By: Gricelda Eduardo on 04-18-2024 Erythrocyte distribution width (RBC) [Ratio] 15.0 % 11.5 - 15.0 % [facility] Hematocrit (Bld) [Volume fraction] 36.6 % Low 40.0 - 52.0 % [facility] Hemoglobin (Bld) [Mass/Vol] 12.1 g/dL Low 13.0 - 18.0 g/dL [facility] Interpretation and review of laboratory results Abnormal [facility] IPF 9 [facility] MCH (RBC) [Entitic mass] 30.6 pg 26. 0 - 34.0 pg [facility] MCHC (RBC) [Mass/Vol] 33.1 % 30.5 - 36.0 % [facility] MCV (RBC) [Entitic vol] 92.7 fL 77.0 - 99.0 fL [facility] Platelet mean volume (Bld) [Entitic vol] 11.7 fL 9.0 - 12.7 fL [facility] Platelets (Bld) [#/Vol] 79 10*3/uL Low 140 - 440 10*3/uL [facility] RBC (Bld) [#/Vol] 3.95 10*6/uL Low 4.40 - 5.9 0 10*6/uL [facility] WBC (Bld) [#/Vol] 8.4 10*3/uL 3.6 - 10.7 10*3/uL [facility] Comprehensive metabolic 1998 panelon 04-18-2024 Albumin [Mass/Vol] 2.9 g/dL Low 3.5 - 5.0 g/dL [facility] ALP [Catalytic activity/Vol] 123 U/L 38 - 126 U/L [facility] ALT [Catalytic activity/Vol] 18 U/L 0 - 49 U/L [facility] Anion gap [Moles/Vol] 7 mmol/L 3 - 13 mmol/L [facility] AST [Catalytic activity/Vol] 18 U/L 15 - 46 U/L [facility] Bilirubin [Mass/Vol] 0.8 mg/dL 0.2 - 1 .3 mg/dL [facility] Calcium [Mass/Vol] 7.8 mg/dL Low 8.4 - 10. 4 mg/dL [facility] Chloride [Moles/Vol] 105 mmol/L 98 - 10 7 mmol/L [facility] CO2 [Moles/Vol] 27 mmol/L 22 - 30 mmol/L [facility] Creatinine [Mass/Vol] 0.51 mg/dL Low 0.66 - 1.25 mg/dL [facility] GFR/1.73 sq M.predicted MDRD (S/P/Bld) [Vol rate/Area] - PINF [facility] Glucose [Mass/Vol] 74 mg/dL 70 - 100 mg/dL [facility] Potassium [Moles/Vol] 3.1 mmol/L Low 3.5 - 5.1 mmol/L [facility] Protein [Mass/Vol] 6.0 g/dL Low 6.3 - 8.2 g/dL [facility] Sodium [Moles/Vol] 140 mmol/L 135 - 145 mmol/L [facility] Urea nitrogen [Mass/Vol] 15 mg/dL 9 - 20 mg/dL [facility] Laboratory - Chemistry and C hemistry - challengeon 04-18-2024 Glucose [Mass/Vol] 264 mg/dL High 70 - 100 mg/dL [facility] Glucose [Mass/Vol] 135 mg/dL High 70 - 100 mg/dL [facility] Glucose [Mass/Vol] 144 mg/dL High 70 - 100 mg/dL [facility] Magnesium [Mass/Vol] 1.5 mg/dL Low 1.6 - 2 .3 mg/dL [facility] Glucose [Mass/Vol] 78 mg/dL 70 - 100 mg/dL [facility] Laboratory - Microbiology an d Antimicrobial susceptibilityon 04-18-2024 Bacteria identified Cx Nom (Bld) Morganella morganii Critically abnormal [facility] Bacteria identified Cx Nom (Bld) Providencia stuartii Critically abnormal [facility] Laboratory - Microbiology an d Antimicrobial susceptibilityOrdered By: Yani Martínez on 04-18-2024 Bacteria identified Cx Nom (Bld) Proteus mirabilis Critically abnormal [facility] Bacteria identified Cx Nom (Bld) Providencia stuartii Critically abnormal [facility] Bacteria identified Cx Nom (Bld) Morganella morganii Critically abnormal [facility] Manual differential performe d Ql (Bld)on 04-18-2024 Anisocytosis Ql (Bld) Slight Abnormal (none) [facility] Cells Counted Total (Bld) [#] 100 {cells} [facility] Differential Method Manual differential performed [facility] Eosinophils (Bld) [#/Vol] 0.1 10*3/uL 0.0 - 0.5 10*3/uL [facility] Eosinophils Manual 1 0 - 1 [facility] Eosinophils/100 WBC (Bld) 1 % 0 - 6 % [facility] Hypochromia Ql (Bld) Slight Abnormal (none) [facility] Interpretation and review of laboratory results Abnormal [facility] Leukocyte morphology finding Nom (Bld) Normal [facility] Lymphocytes (Bld) [#/Vol] 1.1 10*3/uL 1.0 - 4.3 10*3/uL [facility] Lymphocytes Manual 13 [facility] Lymphocytes/100 WBC (Bld) 13 % Low 15 - 45 % [facility] Monocytes (Bld) [#/Vol] 0.7 10*3/uL 0.0 - 0.9 10*3/uL [facility] Monocytes Manual 8 [facility] alth Monocytes/100 WBC (Bld) 8 % 5 - 13 % [facility] Neutrophils (Bld) [#/Vol] 6.6 10*3/uL 1.8 - 7.0 10*3/uL [facility] Neutrophils Manual 78 [facility] Platelet morphology finding Nom (Bld) Normal [facility] Segmented neutrophils/100 WBC (Bld) 78 % 38 - 82 % [facility] WBC corrected for nucl RBC (Bld) [#/Vol] 8.4 10*3/uL 3.6 - 10.7 10*3/uL [facility] No Panel Informationon 04-18 Interpretation and review of laboratory results Abnormal [facility] Interpretation and review of laboratory results Abnormal [facility] Interpretation and review of laboratory results Abnormal [facility] Interpretation and review of laboratory results Abnormal [facility] Interpretation and review of laboratory results Normal [facility] Phosphate [Moles/Vol]on 04-04 Interpretation and review of laboratory results Normal [facility] Phosphate [Mass/Vol] 3.8 mg/dL 2.5 - 4 .5 mg/dL [facility] Bacteria identified Cx Nom ( U)Ordered By: Darya Clark on 04-17-2024 Interpretation and review of laboratory results Abnormal [facility] CBC W Auto Differential pane l (Bld)on 04-17-2024 Basophils (Bld) [#/Vol] 0.0 10*3/uL 0.0 - 0.2 10*3/uL [facility] Basophils/100 WBC (Bld) 0.1 % 0.0 - 2.0 % [facility] Eosinophils (Bld) [#/Vol] 0.1 10*3/uL 0.0 - 0.5 10*3/uL [facility] Eosinophils/100 WBC (Bld) 1.4 % 0.0 - 6.0 % [facility] Erythrocyte distribution width (RBC) [Ratio] 14.9 % 11.5 - 15.0 % [facility] Hematocrit (Bld) [Volume fraction] 35.4 % Low 40.0 - 52.0 % [facility] Hemoglobin (Bld) [Mass/Vol] 11.5 g/dL Low 13.0 - 18.0 g/dL [facility] Immature granulocytes (Bld) [#/Vol] 0.0 10*3/uL NINF - 0.1 10*3/uL [facility] Immature granulocytes/100 WBC (Bld) 0.3 % 0.0 - 2.0 % [facility] Interpretation and review of laboratory results Abnormal [facility] IPF 6 [facility] Lymphocytes (Bld) [#/Vol] 1.3 10*3/uL 1.0 - 4.3 10*3/uL [facility] Lymphocytes/100 WBC (Bld) 16.8 % 15.0 - 45.0 % [facility] MCH (RBC) [Entitic mass] 30.0 pg 26. 0 - 34.0 pg [facility] MCHC (RBC) [Mass/Vol] 32.5 % 30.5 - 36.0 % [facility] MCV (RBC) [Entitic vol] 92.4 fL 77.0 - 99.0 fL [facility] Monocytes (Bld) [#/Vol] 0.4 10*3/uL 0.0 - 0.9 10*3/uL [facility] Monocytes/100 WBC (Bld) 5.5 % 5.0 - 13.0 % [facility] Neutrophils (Bld) [#/Vol] 6.0 10*3/uL 1.8 - 7.5 10*3/uL [facility] Neutrophils/100 WBC (Bld) 75.9 % 38.0 - 82.0 % [facility] Nucleated RBC/100 WBC (Bld) [Ratio] 0.0 % [facility] Platelet mean volume (Bld) [Entitic vol] 11.6 fL 9.0 - 12.7 fL [facility] Platelets (Bld) [#/Vol] 77 10*3/uL Low 140 - 440 10*3/uL [facility] RBC (Bld) [#/Vol] 3.83 10*6/uL Low 4.40 - 5.9 0 10*6/uL [facility] WBC (Bld) [#/Vol] 7.9 10*3/uL 3.6 - 10.7 10*3/uL [facility] Comprehensive metabolic 1998 panelon 04-17-2024 Albumin [Mass/Vol] 2.6 g/dL Low 3.5 - 5.0 g/dL [facility] ALP [Catalytic activity/Vol] 128 U/L High 38 - 126 U/L [facility] ALT [Catalytic activity/Vol] 22 U/L 0 - 49 U/L [facility] Anion gap [Moles/Vol] 5 mmol/L 3 - 13 mmol/L [facility] AST [Catalytic activity/Vol] 22 U/L 15 - 46 U/L [facility] Bilirubin [Mass/Vol] 0.7 mg/dL 0.2 - 1 .3 mg/dL [facility] Calcium [Mass/Vol] 7.9 mg/dL Low 8.4 - 10. 4 mg/dL [facility] Chloride [Moles/Vol] 107 mmol/L 98 - 10 7 mmol/L [facility] [facility] CO2 [Moles/Vol] 23 mmol/L 22 - 30 mmol/L [facility] Creatinine [Mass/Vol] 0.58 mg/dL Low 0.66 - 1.25 mg/dL [facility] GFR/1.73 sq M.predicted MDRD (S/P/Bld) [Vol rate/Area] - PINF [facility] Glucose [Mass/Vol] 144 mg/dL High 70 - 100 mg/dL [facility] Interpretation and review of laboratory results Abnormal [facility] Potassium [Moles/Vol] 3.2 mmol/L Low 3.5 - 5.1 mmol/L [facility] Protein [Mass/Vol] 5.6 g/dL Low 6.3 - 8.2 g/dL [facility] Sodium [Moles/Vol] 135 mmol/L 135 - 145 mmol/L [facility] Urea nitrogen [Mass/Vol] 23 mg/dL High 9 - 20 mg/dL [facility] Laboratory - Chemistry and C hemistry - challengeon 04-17-2024 Glucose [Mass/Vol] 200 mg/dL High 70 - 100 mg/dL [facility] Glucose [Mass/Vol] 235 mg/dL High 70 - 100 mg/dL [facility] Glucose [Mass/Vol] 200 mg/dL High 70 - 100 mg/dL [facility] Glucose [Mass/Vol] 104 mg/dL High 70 - 100 mg/dL [facility] Magnesium [Mass/Vol] 1.6 mg/dL 1.6 - 2 .3 mg/dL [facility] Laboratory - Microbiology an d Antimicrobial susceptibilityOrdered By: Darya Clark on 04-17-2024 Bacteria identified Cx Nom (U) Normal urogenital gosia present [facility] Bacteria identified Cx Nom (U) 50,000-90,000 CFU/mL Providencia stuartii Abnormal [facility] No Panel Informationon 04-17 Interpretation and review of laboratory results Abnormal [facility] Interpretation and review of laboratory results Abnormal [facility] Interpretation and review of laboratory results Abnormal [facility] Interpretation and review of laboratory results Abnormal [facility] Interpretation and review of laboratory results Normal [facility] Phosphate [Moles/Vol]on 04-04 Phosphate [Mass/Vol] 2.8 mg/dL 2.5 - 4 .5 mg/dL [facility] CBC W Auto Differential pane l (Bld)Ordered By: Jj North on 04-16-2024 Erythrocyte distribution width (RBC) [Ratio] 15.2 % High 11.5 - 15.0 % [facility] Hematocrit (Bld) [Volume fraction] 37.2 % Low 40.0 - 52.0 % [facility] Hemoglobin (Bld) [Mass/Vol] 12.0 g/dL Low 13.0 - 18.0 g/dL [facility] [employer] IPF 8 [facility] MCH (RBC) [Entitic mass] 30.7 pg 26. 0 - 34.0 pg [facility] MCHC (RBC) [Mass/Vol] 32.3 % 30.5 - 36.0 % [facility] MCV (RBC) [Entitic vol] 95.1 fL 77.0 - 99.0 fL [facility] Platelet mean volume (Bld) [Entitic vol] 12.0 fL 9.0 - 12.7 fL [facility] Platelets (Bld) [#/Vol] 76 10*3/uL Low 140 - 440 10*3/uL [facility] RBC (Bld) [#/Vol] 3.91 10*6/uL Low 4.40 - 5.9 0 10*6/uL [facility] WBC (Bld) [#/Vol] 11.9 10*3/uL High 3.6 - 10.7 10*3/uL [facility] Comprehensive metabolic 1998 panelon 04-16-2024 Albumin [Mass/Vol] 2.8 g/dL Low 3.5 - 5.0 g/dL [facility] ALP [Catalytic activity/Vol] 130 U/L High 38 - 126 U/L [facility] ALT [Catalytic activity/Vol] 26 U/L 0 - 49 U/L [facility] Anion gap [Moles/Vol] 6 mmol/L 3 - 13 mmol/L [facility] AST [Catalytic activity/Vol] 37 U/L 15 - 46 U/L [facility] Bilirubin [Mass/Vol] 0.9 mg/dL 0.2 - 1 .3 mg/dL [facility] Calcium [Mass/Vol] 8.2 mg/dL Low 8.4 - 10. 4 mg/dL [facility] Chloride [Moles/Vol] 105 mmol/L 98 - 10 7 mmol/L [facility] CO2 [Moles/Vol] 25 mmol/L 22 - 30 mmol/L [facility] Creatinine [Mass/Vol] 0.70 mg/dL 0.66 - 1.25 mg/dL [facility] GFR/1.73 sq M.predicted MDRD (S/P/Bld) [Vol rate/Area] - PINF [facility] Glucose [Mass/Vol] 315 mg/dL High 70 - 100 mg/dL [facility] Interpretation and review of laboratory results Abnormal [facility] Potassium [Moles/Vol] 4.3 mmol/L 3.5 - 5.1 mmol/L [facility] Protein [Mass/Vol] 6.0 g/dL Low 6.3 - 8.2 g/dL [facility] Sodium [Moles/Vol] 137 mmol/L 135 - 145 mmol/L [facility] Urea nitrogen [Mass/Vol] 30 mg/dL High 9 - 20 mg/dL [facility] Laboratory - Chemistry and C hemistry - challengeon 04-16-2024 Glucose [Mass/Vol] 253 mg/dL High 70 - 100 mg/dL [facility] Glucose [Mass/Vol] 307 mg/dL High 70 - 100 mg/dL [facility] Glucose [Mass/Vol] 333 mg/dL High 70 - 100 mg/dL [facility] Glucose [Mass/Vol] 323 mg/dL High 70 - 100 mg/dL [facility] Magnesium [Mass/Vol] 2.0 mg/dL 1.6 - 2 .3 mg/dL [facility] Laboratory - Coagulationon 0 04-16-2024 aPTT Coag (PPP) [Time] 25.4 s 20.0 - 30.5 s [facility] INR Coag (PPP) [Relative time] 1.0 {INR} 0.9 - 1.1 [facility] PT Coag (Bld) [Time] 10.9 s 9.0 - 1 2.0 s [facility] Laboratory - Drug toxicology on 04-16-2024 Vancomycin [Mass/Vol] 12.3 ug/mL Low 15.0 - 20.0 ug/mL [facility] Laboratory - Hematology and Cell countson 04-16-2024 Anisocytosis Ql (Bld) Rare Abnormal (none) [facility] Band form neutrophils (Bld) [#/Vol] 0.2 10*3/uL High NINF - 0.0 10*3/uL [facility] Band form neutrophils/100 WBC (Bld) 2 % High NINF - 0 % [facility] [place] cells LM Ql (Bld) Slight Abnormal (none) [facility] Lymphocytes (Bld) [#/Vol] 0.5 10*3/uL Low 1.0 - 4.3 10*3/uL [facility] Lymphocytes/100 WBC (Bld) 4 % Low 15 - 45 % [facility] Monocytes (Bld) [#/Vol] 0.1 10*3/uL 0.0 - 0.9 10*3/uL [facility] Monocytes/100 WBC (Bld) 1 % Low 5 - 13 % [facility] Neutrophils (Bld) [#/Vol] 11.3 10*3/uL High 1.8 - 7.5 10*3/uL [facility] Ovalocytes LM Ql (Bld) Rare Abnormal (none) [facility] Poikilocytosis LM Ql (Bld) Slight Abnormal (none) [facility] RBC morphology finding Nom (Bld) abnormal [facility] Segmented neutrophils/100 WBC (Bld) 93 % High 38 - 82 % [facility] No Panel Informationon 04-16 Interpretation and review of laboratory results Abnormal [facility] Interpretation and review of laboratory results Abnormal [facility] Interpretation and review of laboratory results Normal [facility] Interpretation and review of laboratory results Abnormal [facility] Interpretation and review of laboratory results Abnormal [facility] Bands Manual 2 [facility] Lymphocytes Manual 4 [facility] Monocytes Manual 1 [facility] alth Neutrophils Manual 96 [facility] Interpretation and review of laboratory results Abnormal [facility] Interpretation and review of laboratory results Normal [facility] No Panel InformationOrdered By: Jj North on 04-16-2024 Interpretation and review of laboratory results Abnormal [facility] Phosphate [Moles/Vol]on 04-04 Phosphate [Mass/Vol] 2.7 mg/dL 2.5 - 4 .5 mg/dL [facility] CBC W Auto Differential pane l (Bld)Ordered By: Dawood Juan on 04-15-2024 Erythrocyte distribution width (RBC) [Ratio] 14.9 % 11.5 - 15.0 % [facility] Hematocrit (Bld) [Volume fraction] 36.2 % Low 40.0 - 52.0 % [facility] Hemoglobin (Bld) [Mass/Vol] 11.9 g/dL Low 13.0 - 18.0 g/dL [facility] Interpretation and review of laboratory results Abnormal [facility] IPF 5 [facility] MCH (RBC) [Entitic mass] 30.9 pg 26. 0 - 34.0 pg [facility] MCHC (RBC) [Mass/Vol] 32.9 % 30.5 - 36.0 % [facility] MCV (RBC) [Entitic vol] 94.0 fL 77.0 - 99.0 fL [facility] Platelet mean volume (Bld) [Entitic vol] 10.8 fL 9.0 - 12.7 fL [facility] Platelets (Bld) [#/Vol] 107 10*3/uL Low 140 - 440 10*3/uL [facility] RBC (Bld) [#/Vol] 3.85 10*6/uL Low 4.40 - 5.9 0 10*6/uL [facility] WBC (Bld) [#/Vol] 11.2 10*3/uL High 3.6 - 10.7 10*3/uL [facility] CBC W Auto Differential pane l (Bld)Ordered By: Benigno Guerrier on 04-15-2024 Erythrocyte distribution width (RBC) [Ratio] 14.8 % 11.5 - 15.0 % [facility] Hematocrit (Bld) [Volume fraction] 39.1 % Low 40.0 - 52.0 % [facility] Hemoglobin (Bld) [Mass/Vol] 12.4 g/dL Low 13.0 - 18.0 g/dL [facility] Interpretation and review of laboratory results Abnormal [facility] IPF 5 [facility] MCH (RBC) [Entitic mass] 30.8 pg 26. 0 - 34.0 pg [facility] MCHC (RBC) [Mass/Vol] 31.7 % 30.5 - 36.0 % [facility] MCV (RBC) [Entitic vol] 97.0 fL 77.0 - 99.0 fL [facility] Platelet mean volume (Bld) [Entitic vol] 10.9 fL 9.0 - 12.7 fL [facility] Platelets (Bld) [#/Vol] 117 10*3/uL Low 140 - 440 10*3/uL [facility] RBC (Bld) [#/Vol] 4.03 10*6/uL Low 4.40 - 5.9 0 10*6/uL [facility] WBC (Bld) [#/Vol] 5.4 10*3/uL 3.6 - 10.7 10*3/uL [facility] Comprehensive metabolic 1998 panelon 04-15-2024 Albumin [Mass/Vol] 2.6 g/dL Low 3.5 - 5.0 g/dL [facility] ALP [Catalytic activity/Vol] 168 U/L High 38 - 126 U/L [facility] ALT [Catalytic activity/Vol] 34 U/L 0 - 49 U/L [facility] Anion gap [Moles/Vol] 10 mmol/L 3 - 13 mmol/L [facility] AST [Catalytic activity/Vol] 36 U/L 15 - 46 U/L [facility] Bilirubin [Mass/Vol] 1.1 mg/dL 0.2 - 1 .3 mg/dL [facility] Calcium [Mass/Vol] 7.9 mg/dL Low 8.4 - 10. 4 mg/dL [facility] Chloride [Moles/Vol] 105 mmol/L 98 - 10 7 mmol/L [facility] CO2 [Moles/Vol] 19 mmol/L Low 22 - 30 mmol/L [facility] Creatinine [Mass/Vol] 1.01 mg/dL 0.66 - 1.25 mg/dL [facility] GFR/1.73 sq M.predicted MDRD (S/P/Bld) [Vol rate/Area] 84.1 mL/min/{1.73_m2} - PINF [facility] th Glucose [Mass/Vol] 286 mg/dL High 70 - 100 mg/dL [facility] Interpretation and review of laboratory results Abnormal [facility] Potassium [Moles/Vol] 3.6 mmol/L 3.5 - 5.1 mmol/L [facility] Protein [Mass/Vol] 5.5 g/dL Low 6.3 - 8.2 g/dL [facility] Sodium [Moles/Vol] 135 mmol/L 135 - 145 mmol/L [facility] Urea nitrogen [Mass/Vol] 25 mg/dL High 9 - 20 mg/dL [facility] Laboratory - Chemistry and C hemistry - challengeon 04-15-2024 Glucose [Mass/Vol] 390 mg/dL High 70 - 100 mg/dL [facility] Glucose [Mass/Vol] 342 mg/dL High 70 - 100 mg/dL [facility] Average glucose Estimated from glycated hemoglobin (Bld) [Mass/Vol] 134 mg/dL [facility] Glucose [Mass/Vol] 287 mg/dL High 70 - 100 mg/dL [facility] Lactate [Moles/Vol] 2.0 mmol/L 0.7 - 2. 0 mmol/L [facility] Procalcitonin [Mass/Vol] 27.06 ng/mL High 0.0 0 - 0.09 ng/mL [facility] Glucose [Mass/Vol] 285 mg/dL High 70 - 100 mg/dL [facility] Lactate [Moles/Vol] 3.6 mmol/L High 0.7 - 2. 0 mmol/L [facility] Magnesium [Mass/Vol] 1.7 mg/dL 1.6 - 2 .3 mg/dL [facility] Laboratory - Drug toxicology on 04-15-2024 Vancomycin [Mass/Vol] 10.8 ug/mL Low 15.0 - 20.0 ug/mL [facility] Laboratory - Hematology and Cell countson 04-15-2024 HbA1c (Bld) [Mass fraction] 6.3 % High NINF - 5.7 % [facility] Band form neutrophils (Bld) [#/Vol] 2.6 10*3/uL High NINF - 0.0 10*3/uL [facility] Band form neutrophils/100 WBC (Bld) 23 % High NINF - 0 % [facility] [place] cells LM Ql (Bld) Slight Abnormal (none) [facility] Lymphocytes (Bld) [#/Vol] 0.1 10*3/uL Low 1.0 - 4.3 10*3/uL [facility] Lymphocytes/100 WBC (Bld) 1 % Low 15 - 45 % [facility] Metamyelocytes (Bld) [#/Vol] 0.1 10*3/uL High [...] 1 % 0 - 2 % [facility] [place] cells LM Ql (Bld) [...] % Low 5 - 13 % [facility] Neutrophils (Bld) [#/Vol] 5.2 10*3/uL 1.8 - 7.5 10*3/uL [facility] Poikilocytosis LM Ql (Bld) Rare Abnormal (none) [facility] RBC morphology finding Nom (Bld) abnormal [facility] Segmented neutrophils/100 WBC (Bld) 74 % 38 - 82 % [facility] MRSA DNA JOSSY+probe Ql (Nose) on 04-15-2024 Interpretation and review of laboratory results Abnormal [facility] mecA gene Not detected Not Detected [facility] Staphylococcus aureus Detected Abnormal Not Detected [facility] No Panel Informationon 04-15 Interpretation and review of laboratory results Abnormal [facility] Interpretation and review of laboratory results Abnormal [facility] Interpretation and review of laboratory results Abnormal [facility] Interpretation and review of laboratory results Abnormal [facility] Interpretation and review of laboratory results Normal [facility] Interpretation and review of laboratory results Abnormal [facility] Bands Manual 23 [facility] Interpretation and review of laboratory results Abnormal [facility] Lymphocytes Manual 1 [facility] Metamyelocytes Manual 1 [facility] Monocytes Manual 1 [facility] Neutrophils Manual 76 [facility] Interpretation and review of laboratory results Abnormal [facility] Interpretation and review of laboratory results Normal [facility] CV EPIPHANY [facility] Interpretation and review of laboratory results Abnormal [facility] Bands Manual 23 [facility] Basophils Manual 1 [facility] Interpretation and review of laboratory results Abnormal [facility] Lymphocytes Manual 1 [facility] Metamyelocytes Manual 1 [facility] Monocytes Manual 0 [facility] Neutrophils Manual 74 [facility] No Panel InformationOrdered By: Radha Clarke on 04-15-2024 Interpretation and review of laboratory results Abnormal [facility] Proteus species Detected Abnormal Not Detected [facility] No Panel InformationOrdered By: Gerber Cardona on 04-15-2024 P [place] 4 degrees [facility] Work Phone: NM Interval 154 ms [facility] Work Phone: QRS [place] 36 degrees [facility] Work Phone: QRSD Interval 90 ms [facility] [employer] Work Phone: QT Interval 336 ms [facility] [employer] Work Phone: QTC Interval 473 ms [facility] Work Phone: T Wave [place] 37 degrees [facility] [employer] Work Phone: [facility] [employer] Work Phone: Phosphate [Moles/Vol]on 04-04 Phosphate [Mass/Vol] 3.3 mg/dL 2.5 - 4 .5 mg/dL [facility] [employer] Procalcitonin [Mass/Vol]on 04-15-2024 Interpretation and review of laboratory results Abnormal [facility] [employer] [facility] [employer] Vital signsOrdered By: Gerber Cardona on 04-15-2024 Heart rate 119 /min bpm [facility] [employer] Work Phone: ABO and Rh group Confirm Nom (Bld)on 04-14-2024 ABO group Nom (Bld) O [facility] [employer] D Ag Ql (RBC) Negative [facility] [employer] ABO and Rh group panel (Bld) on 04-14-2024 ABO group Nom (Bld) O [facility] [employer] D Ag Ql (RBC) Negative [facility] [employer] CBC W Auto Differential pane l (Bld)Ordered By: Bev Santizo on 04-14-2024 Erythrocyte distribution width (RBC) [Ratio] 14.8 % 11.5 - 15.0 % [facility] [employer] Hematocrit (Bld) [Volume fraction] 47.3 % 40.0 - 52.0 % [facility] [employer] Hemoglobin (Bld) [Mass/Vol] 15.2 g/dL 13.0 - 18.0 g/dL [facility] [employer] Interpretation and review of laboratory results Abnormal [facility] [employer] MCH (RBC) [Entitic mass] 30.7 pg 26. 0 - 34.0 pg [facility] MCHC (RBC) [Mass/Vol] 32.1 % 30.5 - 36.0 % [facility] MCV (RBC) [Entitic vol] 95.6 fL 77.0 - 99.0 fL [facility] [employer] Platelet mean volume (Bld) [Entitic vol] 10.8 fL 9.0 - 12.7 fL [facility] [employer] Platelets (Bld) [#/Vol] 183 10*3/uL 140 - 440 10*3/uL [facility] [employer] RBC (Bld) [#/Vol] 4.95 10*6/uL 4.40 - 5.9 0 10*6/uL [facility] WBC (Bld) [#/Vol] 1.5 10*3/uL Critically low 3.6 - 10 .7 10*3/uL [facility] CT Abdomen WO contraston [facility] Radiology Study observation (narrative) [facility] [place] Abdomen WO contrastOrdere d By: Joe Monroy on 04-14-2024 [facility] Work Phone: Comprehensive metabolic 1998 panelon 04-14-2024 Albumin [Mass/Vol] 4.0 g/dL 3.5 - 5.0 g/dL [facility] ALP [Catalytic activity/Vol] 167 U/L High 38 - 126 U/L [facility] ALT [Catalytic activity/Vol] 22 U/L 0 - 49 U/L [facility] Anion gap [Moles/Vol] 16 mmol/L High 3 - 13 mmol/L [facility] AST [Catalytic activity/Vol] 25 U/L 15 - 46 U/L [facility] Bilirubin [Mass/Vol] 1.4 mg/dL High 0.2 - 1 .3 mg/dL [facility] Calcium [Mass/Vol] 9.0 mg/dL 8.4 - 10. 4 mg/dL [facility] Chloride [Moles/Vol] 102 mmol/L 98 - 10 7 mmol/L [facility] CO2 [Moles/Vol] 19 mmol/L Low 22 - 30 mmol/L [facility] Creatinine [Mass/Vol] 1.24 mg/dL 0.66 - 1.25 mg/dL [facility] GFR/1.73 sq M.predicted MDRD (S/P/Bld) [Vol rate/Area] 65.7 mL/min/{1.73_m2} - PINF [facility] th Glucose [Mass/Vol] 259 mg/dL High 70 - 100 mg/dL [facility] Potassium [Moles/Vol] 3.9 mmol/L 3.5 - 5.1 mmol/L [facility] Protein [Mass/Vol] 7.8 g/dL 6.3 - 8.2 g/dL [facility] Sodium [Moles/Vol] 137 mmol/L 135 - 145 mmol/L [facility] Urea nitrogen [Mass/Vol] 21 mg/dL High 9 - 20 mg/dL [facility] Laboratory - Chemistry and C hemistry - challengeOrdered By: Meliton Burrows on 04-14-2024 Lactate [Moles/Vol] 4.9 mmol/L Critically high 0.7 - 2.0 mmol/L [facility] Laboratory - Chemistry and C hemistry - challengeon 04-14-2024 Glucose [Mass/Vol] 223 mg/dL High 70 - 100 mg/dL [facility] Glucose [Mass/Vol] 210 mg/dL High 70 - 100 mg/dL [facility] Glucose [Mass/Vol] 226 mg/dL High 70 - 100 mg/dL [facility] Lipase [Catalytic activity/Vol] U/L Low 23 - 300 U/L [facility] Lactate [Moles/Vol] 3.9 mmol/L High 0.7 - 2. 0 mmol/L [facility] Troponin I.cardiac [Mass/Vol] ng/mL NINF - 0.034 ng/mL [facility] Beta hydroxybutyrate [Mass/Vol] 1.08 mg/dL 0.20 - 2.81 mg/dL [facility] Base excess Calc (BldV) [Moles/Vol] -8.0000 mmol/L Low -3.0 - 3.0 mmol/L [facility] CO2 (BldV) [Partial pressure] 47.4 mm[Hg] [facility] CO2 [Moles/Vol] 20.9 mmol/L Low 23.0 - 30.0 mmol/L [facility] HCO3 (Bld) [Moles/Vol] 19.5 mmol/L Low 21.0 - 30.0 mmol/L [facility] Oxygen (BldV) [Partial pressure] 40.8 mm[Hg] mm Hg [facility] pH (BldV) 7.232 [pH] Low 7.320 - 7.420 [facility] Lipase [Catalytic activity/Vol] 12 U/L Low 23 - 300 U/L [facility] Laboratory - Chemistry and C hemistry - challengeOrdered By: Elliot Martines on 04-14-2024 Lactate [Moles/Vol] 5.1 mmol/L Critically high 0.7 - 2.0 mmol/L [facility] Laboratory - Coagulationon 0 04-14-2024 PT Coag (Bld) [Time] 27.1 s High 9.0 - 1 2.0 s [facility] Laboratory - Hematology and Cell countson 04-14-2024 Hemoglobin (Bld) [Mass/Vol] 13.7 g/dL Screen only [facility] Band form neutrophils (Bld) [#/Vol] 0.3 10*3/uL High NINF - 0.0 10*3/uL [facility] Band form neutrophils/100 WBC (Bld) 17 % High NINF - 0 % [facility] Basophils (Bld) [#/Vol] 0.0 10*3/uL 0.0 - 0.2 10*3/uL [facility] Basophils/100 WBC (Bld) 1 % 0 - 2 % [facility] Lymphocytes (Bld) [#/Vol] 0.6 10*3/uL Low 1.0 - 4.3 10*3/uL [facility] Lymphocytes/100 WBC (Bld) 38 % 15 - 45 % [facility] Monocytes (Bld) [#/Vol] 0.0 10*3/uL 0.0 - 0.9 10*3/uL [facility] Monocytes/100 WBC (Bld) 1 % Low 5 - 13 % [facility] Neutrophils (Bld) [#/Vol] 0.9 10*3/uL Low 1.8 - 7.5 10*3/uL [facility] RBC morphology finding Nom (Bld) Normal [facility] Segmented neutrophils/100 WBC (Bld) 42 % 38 - 82 % [facility] Lipase [Catalytic activity/V ol]on 04-14-2024 Interpretation and review of laboratory results Abnormal [facility] No Panel InformationOrdered By: Meliton Burrows on 04-14-2024 Interpretation and review of laboratory results Abnormal [facility] No Panel Informationon 04-14 Interpretation and review of laboratory results Abnormal [facility] Interpretation and review of laboratory results Abnormal [facility] Interpretation and review of laboratory results Abnormal [facility] Interpretation and review of laboratory results Abnormal [facility] Interpretation and review of laboratory results Abnormal [facility] Interpretation and review of laboratory results Normal [facility] Interpretation and review of laboratory results Abnormal [facility] Source Of Oxygen Room Air [facility] alth [facility] Bands Manual 17 [facility] Basophils Manual 1 [facility] alth Interpretation and review of laboratory results Abnormal [facility] Lymphocytes Manual 38 [facility] Monocytes Manual 1 [facility] alth Neutrophils Manual 42 [facility] Interpretation and review of laboratory results Abnormal [facility] No Panel InformationOrdered By: Elliot Martines on 04-14-2024 Interpretation and review of laboratory results Abnormal [facility] PT Coag (Bld) [Time]on 04-14 INR Coag (PPP) [Relative time] 2.7 {INR} High 0.9 - 1.1 [facility] RF Kidney and Ureter and Uri nary bladder Views W contrast retrogradeon 04-14-2024 IMAGING Troponin I.cardiac [Mass/Vol ]on 04-14-2024 Interpretation and review of laboratory results Normal [facility] Vital signson 04-14-2024 Oxygen saturation in Venous blood 70.7 % [facility] XR Chest Single viewon 04-14 [facility] Radiology Study observation (narrative) [facility] alth XR Chest Single viewOrdered By: Geneva Lunsford on 04-14-2024 [facility] Work Phone: aPTT Coag (Bld) [Time]on aPTT Coag (PPP) [Time] 68.0 s High 20.0 - 30.5 s [facility] Telephone Encounteron 2023 [employer] Authentication Interface Message Text Called pt on his room number but unable to reach him or leave a message. I called nursing staff at [facility] [place] [facility] and was able to leave a message with nursing regarding his MRI findings and that I would like to speak with him and recommendations to schedule visit with [facility] re[facility] and spine surgery. Vaishali Juan, DO Normal [employer] Telephone Encounteron 2023 [employer] Authentication Interface Message Text Telephoned CT pt at dinner and administrative receptionist states she cannot pull pt away from dinner. Normal [employer] Aut[employer] Interface Message Text Called pt regarding his MRI, which showed: IMPRESSION: Acute-subacute sacral insufficiency fracture at S2. Postoperative and degenerative changes of the lumbar spine with linear granulation tissue at L2-3 and tethering of the cauda equina suggesting sequelae of chronic arachnoiditis. No evidence of osteomyelitis discitis or epidural abscess. [facility] the [facility], but I was able [...] to the above findings.He does not have [employer] set up to message. Vaishali Pierre, DO Normal [facility] MR L-SPINE W/+W/Oon 04-05-20 MR L-SPINE [...] or epidural abscess. MACRO: None Normal [facility] MR Lumbar spine WO and W [...] History of lumbar fusion ORDERING PROVIDER: VAISHALI [facility] NOTE: COMPARISON: Lumbar radiographs from 02/10/2024 [...] osteomyelitis discitis or epidural abscess. MACRO: None [facility] Radiology Study observation (narrative) [facility] MR Lumbar spine WO and W con trast IVOrdered By: Hector Li on 04-05-2024 [facility] Work Phone: Patient Instructionson 02-09 [employer] Floor[employer] Authentication Interface Message Text - xrays of the low back - can schedule the MRI of the lumbar spine - I recommend seeing one of my colleagues in the spinal cord injury clinic Normal [facility] Progress Noteson 02-10-2024 [employer] Authentication Interface Message Text Physical Medicine and [...] currently in a nursing facility, [facility]. Bladder management is via [facility] [...] in the spinal cord injury clinic for intermediate SCI related tano (more content not included)... 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 Normal [facility] XR L-SPINE AP+LATERAL 2-3 EWSon 02-10-2024 XR L-SPINE AP+LATERAL 2-3 VIEWS EXAMINATION: XR L-SPINE AP+LATERAL 2-3 VIEWS 02/10/2024 02:27 PM CLINICAL HISTORY: lower thoracic, upper lumbar pareplegia, h/o lumbar surgery. Obtaining updated MRI. Need pre xray ASSOCIATED DIAGNOSIS: Paraplegia (HCC) History of lumbar fusion ORDERING PROVIDER: [facility] NOTE: COMPARISON: None FINDINGS: There is [...] (HCC) History of lumbar fusion ORDERING PROVIDER: [employer] NOTE: COMPARISON: None FINDINGS: There is [...] (HCC) History of lumbar fusion ORDERING PROVIDER: [employer] NOTE: COMPARISON: None FINDINGS: There is [...] on L3 segments is considered. MACRO: None [facility] Radiology Study observation (narrative) [facility] XR Lumbar spine AP and Later alOrdered By: Juan William on 02-10-2024 [facility] Work Phone: Basophil percentageOrdered B y: Tab Dupont on 01-15-2024 Chloride [Moles/Vol] 109 mmol/L 98-[address] [facility] Glucose [Mass/Vol] 122 mg/dL 74-106 [facility] Comment on above: Fasting Glucose resu lt from 100 to 125 mg/dL suggests IMPAIRED HOMEOSTASIS per A.D.A. criteria. Hemoglobin (Bld) [Mass/Vol] 13.0 g/dL 13.0-16.5 [facility] Potassium [Moles/Vol] 3.8 mmol/L 3.5-5.1 [facility] Sodium [Moles/Vol] 139 mmol/L 136-145 [facility] WBC (Bld) [#/Vol] 6.6 10*3/uL 4.4-11.0 [facility] Determination of erythrocyte mean corpuscular volume (MCV)Ordered By: Tab Dupont on 01-15-2024 MCV (RBC) [Entitic vol] 94.3 fL 80-94 [facility] Erythrocyte distribution wid th ratioOrdered By: Tab Dupont on 01-15-2024 Erythrocyte distribution width (RBC) [Ratio] 13.8 % 11.6-14.6 [facility] Erythrocyte distribution wid th standard deviationOrdered By: Tab Dupont on 01-15-2024 Erythrocyte distribution width (RBC) [Entitic vol] 48.0 fL 35.1-43.9 [facility] Hematocrit Auto (Bld) [Volum e fraction]Ordered By: Tab Dupont on 01-15-2024 Hematocrit (Bld) [Volume fraction] 39.5 % 40-54 [facility] - Chemistry and C hemistry - challengeOrdered By: Tab Dupont on 01-15-2024 CO2 [Moles/Vol] 26.0 mmol/L 21.0-32.0 [facility] Urea nitrogen/Creatinine [Mass ratio] 21.6 mg/mg 10-20 [facility] - Hematology and Cell countsOrdered By: Tab Dupont on 01-15-2024 MCH (RBC) [Entitic mass] 31.0 pg 27.0-32.0 [facility] MCHC (RBC) [Mass/Vol] 32.9 g/dL 32-36 [facility] Platelet mean volume (Bld) [Entitic vol] 10.4 fL 6.2-12.0 [facility] Platelets (Bld) [#/Vol] 257 10*3/uL 150-450 [facility] No Panel InformationOrdered By: Tab Dupont on 01-15-2024 Estimated GFR (MDRD) Amer 236 mL/min >60 [facility] Comment on above: GFR Calc Estimated GFR (MDRD) Non-Af Amer 195 mL/min >60 [facility] Comment on above: Non- GFR Calc RBC Auto (Bld) [#/Vol]Ordere d By: Tab Dupont on 01-15-2024 RBC (Bld) [#/Vol] 4.19 10*6/uL 4.6-6.2 [facility] Serum or plasma calcium randall urement (mass/volume)Ordered By: Tab Dupont on 01-15-2024 Calcium [Mass/Vol] 8.7 mg/dL 8.5-10.1 [facility] Serum or plasma creatinine m easurement (mass/volume)Ordered By: Tab Dupotn on 01-15-2024 Creatinine [Mass/Vol] 0.46 mg/dL 0.70-1.30 [facility] Comment on above: The validity of the calculated GFR & GFRAA in patients over 70 years has not been determined. Clinical correlation is essential. Serum or plasma urea nitroge n measurement (mass/volume)Ordered By: Tab Dupont on 01-15-2024 Urea nitrogen [Mass/Vol] 10 mg/dL 7-18 [facility] Thin prep Papanicolaou smear with manual screeningOrdered By: Tab Dupont on 01-15-2024 Thin prep Papanicolaou smear with manual screening 4 5-15 [facility] Basophil percentageOrdered B y: Tab Dupont on 01-07-2024 Chloride [Moles/Vol] 112 mmol/L 98-[address] [facility] Glucose [Mass/Vol] 114 mg/dL 74-106 [facility] Comment on above: Fasting Glucose resu lt from 100 to 125 mg/dL suggests IMPAIRED HOMEOSTASIS per A.D.A. criteria. Hemoglobin (Bld) [Mass/Vol] 13.0 g/dL 13.0-16.5 [facility] Potassium [Moles/Vol] 3.8 mmol/L 3.5-5.1 [facility] Sodium [Moles/Vol] 140 mmol/L 136-145 [facility] WBC (Bld) [#/Vol] 8.1 10*3/uL 4.4-11.0 [facility] Determination of erythrocyte mean corpuscular volume (MCV)Ordered By: Tab Dupont on 01-07-2024 MCV (RBC) [Entitic vol] 92.6 fL 80-94 [facility] Erythrocyte distribution wid th ratioOrdered By: Tab Dupont on 01-07-2024 Erythrocyte distribution width (RBC) [Ratio] 13.8 % 11.6-14.6 [facility] Erythrocyte distribution wid th standard deviationOrdered By: Tab Dupont on 01-07-2024 Erythrocyte distribution width (RBC) [Entitic vol] 46.5 fL 35.1-43.9 [facility] Hematocrit Auto (Bld) [Volum e fraction]Ordered By: Tab Dupont on 01-07-2024 Hematocrit (Bld) [Volume fraction] 38.9 % 40-54 [facility] - Chemistry and C hemistry - challengeOrdered By: Tab Dupont on 01-07-2024 CO2 [Moles/Vol] 23.0 mmol/L 21.0-32.0 [facility] Urea nitrogen/Creatinine [Mass ratio] 25.5 mg/mg 10-20 [facility] - Hematology and Cell countsOrdered By: Tab Dupont on 01-07-2024 MCH (RBC) [Entitic mass] 31.0 pg 27.0-32.0 [facility] MCHC (RBC) [Mass/Vol] 33.4 g/dL 32-36 [facility] Platelet mean volume (Bld) [Entitic vol] 10.2 fL 6.2-12.0 [facility] Platelets (Bld) [#/Vol] 282 10*3/uL 150-450 [facility] No Panel InformationOrdered By: Tab Dupont on 01-07-2024 Estimated GFR (MDRD) Amer 257 mL/min >60 [facility] Comment on above: GFR Calc Estimated GFR (MDRD) Non-Af Amer 212 mL/min >60 [facility] Comment on above: Non- GFR Calc RBC Auto (Bld) [#/Vol]Ordere d By: Tab Dupont on 01-07-2024 RBC (Bld) [#/Vol] 4.20 10*6/uL 4.6-6.2 [facility] Serum or plasma calcium randall urement (mass/volume)Ordered By: Tab Dupont on 01-07-2024 Calcium [Mass/Vol] 8.5 mg/dL 8.5-10.1 [facility] Serum or plasma creatinine m easurement (mass/volume)Ordered By: Tab Dupont on 01-07-2024 Creatinine [Mass/Vol] 0.43 mg/dL 0.70-1.30 [facility] Comment on above: The validity of the calculated GFR & GFRAA in patients over 70 years has not been determined. Clinical correlation is essential. Serum or plasma urea nitroge n measurement (mass/volume)Ordered By: Tab Dupont on 01-07-2024 Urea nitrogen [Mass/Vol] 11 mg/dL 7-18 [facility] Thin prep Papanicolaou smear with manual screeningOrdered By: Tab Dupont on 01-07-2024 Thin prep Papanicolaou smear with manual screening 5 5-15 [facility] Whole blood hemoglobin A1c/t otal hemoglobin ratio (mass fraction)Ordered By: Tab Dupont on 01-04-2024 HbA1c (Bld) [Mass fraction] 6.3 % 3.8-5.6 [facility] Comment on above: Normal < 5.7 % Predi abetic 5.7 - 6.4 % Diabetic >or= 6.5 % Please note range changes. Basophil percentageOrdered B y: Tab Dupont on 12-31-2023 Chloride [Moles/Vol] 107 mmol/L 98-[address] [facility] Glucose [Mass/Vol] 145 mg/dL 74-106 [facility] Comment on above: Fasting Glucose resu lt greater than or equal to 126 mg/dL suggests DIABETES MELLITUS per A.D.A. criteria. Hemoglobin (Bld) [Mass/Vol] 12.5 g/dL 13.0-16.5 [facility] Potassium [Moles/Vol] 3.4 mmol/L 3.5-5.1 [facility] Sodium [Moles/Vol] 136 mmol/L 136-145 [facility] WBC (Bld) [#/Vol] 7.7 10*3/uL 4.4-11.0 [facility] Determination of erythrocyte mean corpuscular volume (MCV)Ordered By: Tab Dupont on 12-31-2023 MCV (RBC) [Entitic vol] 93.0 fL 80-94 [facility] Erythrocyte distribution wid th ratioOrdered By: Tab Dupont on 12-31-2023 Erythrocyte distribution width (RBC) [Ratio] 14.1 % 11.6-14.6 [facility] Erythrocyte distribution wid th standard deviationOrdered By: Tab Dupont on 12-31-2023 Erythrocyte distribution width (RBC) [Entitic vol] 48.5 fL 35.1-43.9 [facility] Hematocrit Auto (Bld) [Volum e fraction]Ordered By: Tab Dupont on 12-31-2023 Hematocrit (Bld) [Volume fraction] 37.0 % 40-54 [facility] - Chemistry and C hemistry - challengeOrdered By: Tab Dupont on 12-31-2023 CO2 [Moles/Vol] 23.0 mmol/L 21.0-32.0 [facility] Urea nitrogen/Creatinine [Mass ratio] 29.1 mg/mg 10-20 [facility] - Hematology and Cell countsOrdered By: Tab Dupont on 12-31-2023 MCH (RBC) [Entitic mass] 31.4 pg 27.0-32.0 [facility] MCHC (RBC) [Mass/Vol] 33.8 g/dL 32-36 [facility] Platelet mean volume (Bld) [Entitic vol] 11.0 fL 6.2-12.0 [facility] Platelets (Bld) [#/Vol] 199 10*3/uL 150-450 [facility] No Panel InformationOrdered By: Tab Dupont on 12-31-2023 Estimated GFR (MDRD) Amer 299 mL/min >60 [facility] Comment on above: GFR Calc Estimated GFR (MDRD) Non-Af Amer 247 mL/min >60 [facility] Comment on above: Non- GFR Calc RBC Auto (Bld) [#/Vol]Ordere d By: Tab Dupont on 12-31-2023 RBC (Bld) [#/Vol] 3.98 10*6/uL 4.6-6.2 [facility] Serum or plasma calcium randall urement (mass/volume)Ordered By: Tab Dupont on 12-31-2023 Calcium [Mass/Vol] 8.6 mg/dL 8.5-10.1 [facility] Serum or plasma creatinine m easurement (mass/volume)Ordered By: Tab Dupont on 12-31-2023 Creatinine [Mass/Vol] 0.38 mg/dL 0.70-1.30 [facility] Comment on above: The validity of the calculated GFR & GFRAA in patients over 70 years has not been determined. Clinical correlation is essential. Serum or plasma urea nitroge n measurement (mass/volume)Ordered By: Tab Dupont on 12-31-2023 Urea nitrogen [Mass/Vol] 11 mg/dL 7-18 [facility] Thin prep Papanicolaou smear with manual screeningOrdered By: Tab Dupont on 12-31-2023 Thin prep Papanicolaou smear with manual screening 6 5-15 [facility] Basophil percentageOrdered B y: Tab Dupont on 12-04-2023 Basophil percentage 25-50 SEEN /hpf 0-5 [facility] Bilirubin Test strip Ql (U)O rdered By: Tab Dupont on 12-04-2023 Bilirubin Ql (U) Negative Negative [facility] Calcium oxalate crystals det ection in urine sediment by light microscopyOrdered By: Tab Dupont on 12-04-2023 Calcium oxalate crystals LM Ql (Urine sed) 2+ /hpf [facility] Culture, urineOrdered By: Vinh Lehman on 12-04-2023 Bacteria identified Cx Nom (U) ESBL Klebsiella pneumoniae pne [facility] Bacteria identified Cx Nom (U) Proteus mirabilis [facility] Ketones Test strip Ql (U)Ord ered By: Tab Dupont on 12-04-2023 Ketones Ql (U) 5 mg/dl Negative [facility] Magnesium ammonium phosphate crystal detectionOrdered By: Tab Dupont on 12-04-2023 Triple phosphate crystals LM Ql (Urine sed) 2+ /hpf [facility] Mucus LM Ql (Urine sed)Order ed By: Tab Dupont on 12-04-2023 Mucus Ql (Urine sed) 0 SEEN /hpf [facility] Nitrite Test strip Ql (U)Ord ered By: Tab Dupont on 12-04-2023 Nitrite Ql (U) Negative Negative [facility] No Panel InformationOrdered By: Tab Dupont on 12-04-2023 Urine RBC 10-25 SEEN /hpf 0-5 [facility] Protein Test strip Ql (U)Ord ered By: Tab Dupont on 12-04-2023 Protein Ql (U) 30 mg/dl Negative [facility] Squamous epithelial cells de tection in urine sediment by light microscopyOrdered By: Tab Dupont on 12-04-2023 Epithelial cells.squamous LM Ql (Urine sed) 0 SEEN /hpf 0-5 [facility] Urine blood detectionOrdered By: Tab Dupont on 12-04-2023 RBC Ql (U) 150 /ul Negative [facility] Urine clarityOrdered By: Regino Dupont on 12-04-2023 Clarity (U) Cloudy Clear [facility] Urine color determinationOrd ered By: Tab Dupont on 12-04-2023 Color (U) Yellow Yellow [facility] Urine glucose detectionOrder ed By: Tab Dupont on 12-04-2023 Glucose Ql (U) Normal mg/dl Normal [facility] Urine leukocyte esterase det ection by dipstickOrdered By: Tab Dupont on 12-04-2023 Leukocyte esterase Test strip Ql (U) 500 /ul Negative [facility] Urine pHOrdered By: Tab cordova on 12-04-2023 pH (U) 8.0 [pH] 5.0 - 8.0 [facility] Urine sediment bacteria coun t by microscopy (number/high power field)Ordered By: Tab Dupont on 12-04-2023 Bacteria LM.HPF (Urine sed) [#/Area] 3 /[HPF] None Seen [facility] Urine specific gravity measu rementOrdered By: Tab Dupont on 12-04-2023 Specific gravity (U) [Rel density] 1.015 1.002-1.030 [facility] Urine urobilinogen measureme ntOrdered By: Tab Dupont on 12-04-2023 Urobilinogen Ql (U) Normal mg/dl Normal [facility] Amorphous sediment detection in urine sediment by light microscopyOrdered By: Tab Dupont on 10-25-2023 Amorphous sediment LM Ql (Urine sed) 3+ [facility] Basophil percentageOrdered B y: Tab Dupont on 10-25-2023 Basophil percentage 0-5 SEEN /hpf 0-5 [facility] Bilirubin Test strip Ql (U)O rdered By: Tab Dupont on 10-25-2023 Bilirubin Ql (U) Negative Negative [facility] Culture, urineOrdered By: Vinh Lehman on 10-25-2023 Bacteria identified Cx Nom (U) ESBL Klebsiella pneumoniae pne [facility] Bacteria identified Cx Nom (U) Proteus mirabilis [facility] Ketones Test strip Ql (U)Ord ered By: Tab Dupont on 10-25-2023 Ketones Ql (U) Negative Negative [facility] Mucus LM Ql (Urine sed)Order ed By: Tab Dupont on 10-25-2023 Mucus Ql (Urine sed) 0 SEEN /hpf [facility] Nitrite Test strip Ql (U)Ord ered By: Tab Dupont on 10-25-2023 Nitrite Ql (U) Negative Negative [facility] No Panel InformationOrdered By: Tab Dupont on 10-25-2023 Urine RBC 0-5 SEEN /hpf 0-5 [facility] Protein Test strip Ql (U)Ord ered By: Tab Dupont on 10-25-2023 Protein Ql (U) 500 mg/dl Negative [facility] Squamous epithelial cells de tection in urine sediment by light microscopyOrdered By: Tab Dpuont on 10-25-2023 Epithelial cells.squamous LM Ql (Urine sed) 0 SEEN /hpf 0-5 [facility] Urine blood detectionOrdered By: Tab Dupont on 10-25-2023 RBC Ql (U) 150 /ul Negative [facility] Urine clarityOrdered By: Regino Dupont on 10-25-2023 Clarity (U) Cloudy Clear [facility] Urine color determinationOrd ered By: Tab Dupont on 10-25-2023 Color (U) YELLOW Yellow [facility] Urine glucose detectionOrder ed By: Tab Dupont on 10-25-2023 Glucose Ql (U) Normal mg/dl Normal [facility] Urine leukocyte esterase det ection by dipstickOrdered By: Tab Dupont on 10-25-2023 Leukocyte esterase Test strip Ql (U) 500 /ul Negative [facility] Urine pHOrdered By: Tab cordova on 10-25-2023 pH (U) 8.0 [pH] 5.0 - 8.0 [facility] Urine sediment bacteria coun t by microscopy (number/high power field)Ordered By: Tab Dupont on 10-25-2023 Bacteria LM.HPF (Urine sed) [#/Area] 1 /[HPF] None Seen [facility] Urine sediment uric acid cry stal count by microscopy (number/high power field)Ordered By: Tab Dupont on 10-25-2023 Urate crystals LM.HPF (Urine sed) [#/Area] 3 /[HPF] [facility] Urine specific gravity measu rementOrdered By: Tab Dupont on 10-25-2023 Specific gravity (U) [Rel density] 1.010 1.002-1.030 [facility] Urine urobilinogen measureme ntOrdered By: Tab Dupont on 10-25-2023 Urobilinogen Ql (U) Normal mg/dl Normal [facility] Whole blood hemoglobin A1c/t otal hemoglobin ratio (mass fraction)Ordered By: Tab Dupont on 08-10-2023 HbA1c (Bld) [Mass fraction] 6.2 % 3.8-5.6 [facility] Comment on above: Normal < 5.7 % Predi abetic 5.7 - 6.4 % Diabetic >or= 6.5 % Please note range changes. Whole blood hemoglobin A1c/t otal hemoglobin ratio (mass fraction)Ordered By: Tab Dupont on 08-07-2023 HbA1c (Bld) [Mass fraction] 6.2 % 3.8-5.6 [facility] Comment on above: Normal < 5.7 % Predi abetic 5.7 - 6.4 % Diabetic >or= 6.5 % Please note range changes. Amorphous sediment detection in urine sediment by light microscopyOrdered By: Tab Dupont on 07-31-2023 Amorphous sediment LM Ql (Urine sed) 2+ [facility] Basophil percentageOrdered B y: Tab Dupont on 07-31-2023 Basophil percentage 50-100 SEEN /hpf 0-5 [facility] Bilirubin Test strip Ql (U)O rdered By: Tab Dupont on 07-31-2023 Bilirubin Ql (U) Negative Negative [facility] Culture, urineOrdered By: Vinh Lehman on 07-31-2023 Bacteria identified Cx Nom (U) ESBL Klebsiella pneumoniae pne [facility] Bacteria identified Cx Nom (U) Proteus mirabilis [facility] Ketones Test strip Ql (U)Ord ered By: Tab Dupont on 07-31-2023 Ketones Ql (U) Negative Negative [facility] Mucus LM Ql (Urine sed)Order ed By: Tab Dupont on 07-31-2023 Mucus Ql (Urine sed) 0 SEEN /hpf [facility] Nitrite Test strip Ql (U)Ord ered By: Tab Dupont on 07-31-2023 Nitrite Ql (U) Negative Negative [facility] Protein Test strip Ql (U)Ord ered By: Tab Dupont on 07-31-2023 Protein Ql (U) 30 mg/dl Negative [facility] Squamous epithelial cells de tection in urine sediment by light microscopyOrdered By: Tab Dupont on 07-31-2023 Epithelial cells.squamous LM Ql (Urine sed) 0 SEEN /hpf 0-5 [facility] Urine blood detectionOrdered By: Tab Dupont on 07-31-2023 RBC Ql (U) 250 /ul Negative [facility] RBC Ql (U) 10-25 SEEN /hpf 0-5 [facility] Urine clarityOrdered By: Regino Dupont on 07-31-2023 Clarity (U) Cloudy Clear [facility] Urine color determinationOrd ered By: Tab Dupont on 07-31-2023 Color (U) Yellow Yellow [facility] Urine glucose detectionOrder ed By: Tab Dupont on 07-31-2023 Glucose Ql (U) Normal mg/dl Normal [facility] Urine leukocyte esterase det ection by dipstickOrdered By: Tab Dupont on 07-31-2023 Leukocyte esterase Test strip Ql (U) 500 /ul Negative [facility] Urine pHOrdered By: Tab cordova on 07-31-2023 pH (U) 7.0 [pH] 5.0 - 8.0 [facility] Urine sediment bacteria coun t by microscopy (number/high power field)Ordered By: Tab Dupont on 07-31-2023 Bacteria LM.HPF (Urine sed) [#/Area] 0 /[HPF] None Seen [facility] Urine specific gravity measu rementOrdered By: aTb Dupont on 07-31-2023 Specific gravity (U) [Rel density] 1.010 1.002-1.030 [facility] U[facility] Auto test strip Ql (U)Ordered By: Tab Dupont on 07-31-2023 Urobilinogen Ql (U) Normal mg/dl Normal [facility] Basophil percentageOrdered B y: Tab Duopnt on 06-29-2023 Chloride [Moles/Vol] 108 mmol/L 98-[address] [facility] Glucose [Mass/Vol] 169 mg/dL 74-106 [facility] Comment on above: Fasting Glucose resu lt greater than or equal to 126 mg/dL suggests DIABETES MELLITUS per A.D.A. criteria. Potassium [Moles/Vol] 3.4 mmol/L 3.5-5.1 [facility] Sodium [Moles/Vol] 139 mmol/L 136-145 [facility] WBC (Bld) [#/Vol] 6.4 10*3/uL 4.4-11.0 [facility] Blood erythrocytes count (nu mber/volume)Ordered By: Tab Dupont on 06-29-2023 RBC (Bld) [#/Vol] 4.05 10*6/uL 4.6-6.2 [facility] Blood hemoglobin measurement (mass/volume)Ordered By: Tab Dupont on 06-29-2023 Hemoglobin (Bld) [Mass/Vol] 12.6 g/dL 13.0-16.5 [facility] Blood platelet mean volumeOr dered By: Tab Dupont on 06-29-2023 Platelet mean volume (Bld) [Entitic vol] 10.0 fL 6.2-12.0 [facility] Determination of erythrocyte mean corpuscular volume (MCV)Ordered By: Tab Dupont on 06-29-2023 MCV (RBC) [Entitic vol] 97.3 fL 80-94 [facility] Hematocrit Auto (Bld) [Volum e fraction]Ordered By: Tab Dupont on 06-29-2023 Hematocrit (Bld) [Volume fraction] 39.4 % 40-54 [facility] - Chemistry and C hemistry - challengeOrdered By: Tab Dupont on 06-29-2023 CO2 [Moles/Vol] 24.0 mmol/L 21.0-32.0 [facility] Urea nitrogen/Creatinine [Mass ratio] 28.8 mg/mg 10-20 [facility] - Hematology and Cell countsOrdered By: Tab Dupont on 06-29-2023 Erythrocyte distribution width (RBC) [Entitic vol] 48.6 fL 35.1-43.9 [facility] Erythrocyte distribution width (RBC) [Ratio] 13.6 % 11.6-14.6 [facility] MCH (RBC) [Entitic mass] 31.1 pg 27.0-32.0 [facility] MCHC Auto (RBC) [Mass/Vol]Or dered By: Tab Dupont on 06-29-2023 MCHC (RBC) [Mass/Vol] 32.0 g/dL 32-36 [facility] No Panel InformationOrdered By: Tab Dupont on 06-29-2023 Estimated GFR (MDRD) Amer 207 mL/min >60 [facility] Comment on above: GFR Calc Estimated GFR (MDRD) Non-Af Amer 171 mL/min >60 [facility] Comment on above: Non- GFR Calc Platelets bldOrdered By: Regino Dupont on 06-29-2023 Platelets (Bld) [#/Vol] 243 10*3/uL 150-450 [facility] Serum or plasma calcium randall urement (mass/volume)Ordered By: Tab Dupont on 06-29-2023 Calcium [Mass/Vol] 8.3 mg/dL 8.5-10.1 [facility] Serum or plasma creatinine m easurement (mass/volume)Ordered By: Tab Dupont on 06-29-2023 Creatinine [Mass/Vol] 0.52 mg/dL 0.70-1.30 [facility] Comment on above: The validity of the calculated GFR & GFRAA in patients over 70 years has not been determined. Clinical correlation is essential. Serum or plasma urea nitroge n measurement (mass/volume)Ordered By: Tab Dupont on 06-29-2023 Urea nitrogen [Mass/Vol] 15 mg/dL 7-18 [facility] Thin prep Papanicolaou smear with manual screeningOrdered By: Tab Dupont on 06-29-2023 Thin prep Papanicolaou smear with manual screening 7 5-15 [facility] Basophil percentageOrdered B y: Tab Dupont on 06-01-2023 Chloride [Moles/Vol] 112 mmol/L 98-[address] [facility] Glucose [Mass/Vol] 133 mg/dL 74-106 [facility] Comment on above: Fasting Glucose resu lt greater than or equal to 126 mg/dL suggests DIABETES MELLITUS per A.D.A. criteria. Potassium [Moles/Vol] 3.8 mmol/L 3.5-5.1 [facility] Sodium [Moles/Vol] 141 mmol/L 136-145 [facility] WBC (Bld) [#/Vol] 6.8 10*3/uL 4.4-11.0 [facility] Blood erythrocytes count (nu mber/volume)Ordered By: Tab Dupont on 06-01-2023 RBC (Bld) [#/Vol] 3.96 10*6/uL 4.6-6.2 [facility] Blood hemoglobin measurement (mass/volume)Ordered By: Tab Dupont on 06-01-2023 Hemoglobin (Bld) [Mass/Vol] 12.7 g/dL 13.0-16.5 [facility] Blood platelet mean volumeOr dered By: Tab Dupont on 06-01-2023 Platelet mean volume (Bld) [Entitic vol] 10.1 fL 6.2-12.0 [facility] Determination of erythrocyte mean corpuscular volume (MCV)Ordered By: Tab Dupont on 06-01-2023 MCV (RBC) [Entitic vol] 99.7 fL 80-94 [facility] Hematocrit Auto (Bld) [Volum e fraction]Ordered By: Tab Dupont on 06-01-2023 Hematocrit (Bld) [Volume fraction] 39.5 % 40-54 [facility] - Chemistry and C hemistry - challengeOrdered By: Tab Dupont on 06-01-2023 CO2 [Moles/Vol] 25.0 mmol/L 21.0-32.0 [facility] Urea nitrogen/Creatinine [Mass ratio] 29.2 mg/mg 10-20 [facility] - Hematology and Cell countsOrdered By: Tab Dupont on 06-01-2023 Erythrocyte distribution width (RBC) [Entitic vol] 54.3 fL 35.1-43.9 [facility] Erythrocyte distribution width (RBC) [Ratio] 14.6 % 11.6-14.6 [facility] MCH (RBC) [Entitic mass] 32.1 pg 27.0-32.0 [facility] MCHC Auto (RBC) [Mass/Vol]Or dered By: Tab Dupont on 06-01-2023 MCHC (RBC) [Mass/Vol] 32.2 g/dL 32-36 [facility] No Panel InformationOrdered By: Tab Dupont on 06-01-2023 Estimated GFR (MDRD) Amer 227 mL/min >60 [facility] Comment on above: GFR Calc Estimated GFR (MDRD) Non-Af Amer 188 mL/min >60 [facility] Comment on above: Non- GFR Calc Platelets bldOrdered By: Regino Dupont on 06-01-2023 Platelets (Bld) [#/Vol] 274 10*3/uL 150-450 [facility] Serum or plasma calcium randall urement (mass/volume)Ordered By: Tab Dupont on 06-01-2023 Calcium [Mass/Vol] 8.5 mg/dL 8.5-10.1 [facility] Serum or plasma creatinine m easurement (mass/volume)Ordered By: Tab Dupont on 06-01-2023 Creatinine [Mass/Vol] 0.48 mg/dL 0.70-1.30 [facility] Comment on above: The validity of the calculated GFR & GFRAA in patients over 70 years has not been determined. Clinical correlation is essential. Serum or plasma urea nitroge n measurement (mass/volume)Ordered By: Tab Dupont on 06-01-2023 Urea nitrogen [Mass/Vol] 14 mg/dL 7-18 [facility] Thin prep Papanicolaou smear with manual screeningOrdered By: Tab Dupont on 06-01-2023 Thin prep Papanicolaou smear with manual screening 4 -15 [facility] Urinalysis complete panel (U )Ordered By: Darya Nazario on 05-23-2023 Bacteria LM.HPF (Urine sed) [#/Area] Moderate Abnormal Negative /HPF [facility] Bilirubin Ql (U) Negative Negative mg/dL [facility] Clarity (U) Extra Turbid Abnormal [facility] (U) Yellow Lt. Yellow [facility] Epithelial cells.squamous LM.HPF (Urine sed) [#/Area] 0-2 [facility] Glucose Ql (U) Normal Normal (<70) mg/dL [facility] Hemoglobin Ql (U) 0.1 mg/dL Abnormal Negative [facility] Interpretation and review of laboratory results Abnormal [facility] Ketones (U) [Mass/Vol] Negative Negat mary grace mg/dL [facility] Leukocyte clumps LM.HPF (Urine sed) [#/Area] Moderate Abnormal Negative /HPF [facility] Leukocyte esterase Test strip Ql (U) 500 Abnormal Negative Da/uL [facility] Mucus LM.HPF (Urine sed) [#/Area] Few Negative /LPF [facility] Nitrite Ql (U) Positive Abnormal Negative [facility] th pH (U) 8.0 [pH] 5.0 - 8.0 pH [facility] Protein (U) [Mass/Vol] 100 mg/dL Abnormal Negative [facility] RBC LM.HPF (Urine sed) [#/Area] /[HPF] Abnormal [facility] Specific gravity (U) [Rel density] 1.014 1.005 - 1.030 [facility] Triple phosphate crystals LM.HPF (Urine sed) [#/Area] Moderate Abnormal Negative /HPF [facility] Urobilinogen (U) [Mass/Vol] Normal Normal (0-1) mg/dL [facility] WBC LM.HPF (Urine sed) [#/Area] /[HPF] Abnormal [facility] Basophil percentageOrdered B y: Tab Dupont on 05-04-2023 Bilirubin [Mass/Vol] 0.20 mg/dL 0.20-1.[address] [facility] Comment on above: For patients on eltr ombopag therapy, use of Dimension [place] TBIL is not recommended. Chloride [Moles/Vol] 109 mmol/L 98-[address] [facility] Glucose [Mass/Vol] 183 mg/dL 74-106 [facility] Comment on above: Fasting Glucose resu lt greater than or equal to 126 mg/dL suggests DIABETES MELLITUS per A.D.A. criteria. Potassium [Moles/Vol] 4.0 mmol/L 3.5-5.1 [facility] Protein [Mass/Vol] 6.0 g/dL 6.4-8.2 [facility] Sodium [Moles/Vol] 139 mmol/L 136-145 [facility] WBC (Bld) [#/Vol] 6.7 10*3/uL 4.4-11.0 [facility] Blood erythrocytes count (nu mber/volume)Ordered By: Tab Dupont on 05-04-2023 RBC (Bld) [#/Vol] 3.31 10*6/uL 4.6-6.2 [facility] Blood hemoglobin measurement (mass/volume)Ordered By: Tab Dupont on 05-04-2023 Hemoglobin (Bld) [Mass/Vol] 10.2 g/dL 13.0-16.5 [facility] Blood platelet mean volumeOr dered By: Tab Dupont on 05-04-2023 Platelet mean volume (Bld) [Entitic vol] 10.2 fL 6.2-12.0 [facility] Determination of erythrocyte mean corpuscular volume (MCV)Ordered By: Tab Dupont on 05-04-2023 MCV (RBC) [Entitic vol] 99.1 fL 80-94 [facility] Hematocrit Auto (Bld) [Volum e fraction]Ordered By: Tab Dupont on 05-04-2023 Hematocrit (Bld) [Volume fraction] 32.8 % 40-54 [facility] - Chemistry and C hemistry - challengeOrdered By: Tab Dupont on 05-04-2023 ALP [Catalytic activity/Vol] 104 U/L 45-117 [facility] ALT [Catalytic activity/Vol] 17 U/L 16-61 [facility] CO2 [Moles/Vol] 26.0 mmol/L 21.0-32.0 [facility] Globulin (S) [Mass/Vol] 3.8 g/dL 2.2-4.2 [facility] Urea nitrogen/Creatinine [Mass ratio] 21.9 mg/mg 10-20 [facility] - Hematology and Cell countsOrdered By: Tab Dupont on 05-04-2023 Erythrocyte distribution width (RBC) [Entitic vol] 48.8 fL 35.1-43.9 [facility] Erythrocyte distribution width (RBC) [Ratio] 13.5 % 11.6-14.6 [facility] MCH (RBC) [Entitic mass] 30.8 pg 27.0-32.0 [facility] MCHC Auto (RBC) [Mass/Vol]Or dered By: Tab Dupont on 05-04-2023 MCHC (RBC) [Mass/Vol] 31.1 g/dL 32-36 [facility] No Panel InformationOrdered By: Tab Dupont on 05-04-2023 Estimated GFR (MDRD) Amer 195 mL/min >60 [facility] Comment on above: GFR Calc Estimated GFR (MDRD) Non-Af Amer 161 mL/min >60 [facility] Comment on above: Non- GFR Calc Platelets bldOrdered By: Regino Dupont on 05-04-2023 Platelets (Bld) [#/Vol] 290 10*3/uL 150-450 [facility] Serum or plasma albumin randall urement (mass/volume)Ordered By: Tab Dupont on 05-04-2023 Albumin [Mass/Vol] 2.2 g/dL 3.2-5.0 [facility] Serum or plasma albumin/glob ulin mass ratioOrdered By: Tab Dupont on 05-04-2023 Albumin/Globulin [Mass ratio] 0.6 {ratio} 0.9-2.4 [facility] Serum or plasma calcium randall urement (mass/volume)Ordered By: Tab Dupont on 05-04-2023 Calcium [Mass/Vol] 8.4 mg/dL 8.5-10.1 [facility] Serum or plasma creatinine m easurement (mass/volume)Ordered By: Tab Dupont on 05-04-2023 Creatinine [Mass/Vol] 0.55 mg/dL 0.70-1.30 [facility] Comment on above: The validity of the calculated GFR & GFRAA in patients over 70 years has not been determined. Clinical correlation is essential. Serum or plasma urea nitroge n measurement (mass/volume)Ordered By: Tab Dupont on 05-04-2023 Urea nitrogen [Mass/Vol] 12 mg/dL 7-18 [facility] Thin prep Papanicolaou smear with manual screeningOrdered By: Tab Dupont on 05-04-2023 Thin prep Papanicolaou smear with manual screening 16 U/L 15-37 [facility] Thin prep Papanicolaou smear with manual screening 4 5-15 [facility] Basophil percentageOrdered B y: Tab Dupont on 03-25-2023 Bilirubin [Mass/Vol] 0.30 mg/dL 0.20-1.[address] [facility] Comment on above: For patients on eltr ombopag therapy, use of Dimension [place] TBIL is not recommended. Chloride [Moles/Vol] 107 mmol/L 98-[address] [facility] Cholesterol [Mass/Vol] 163 mg/dL <200 [facility] Comment on above: <200 mg/dL Desirable 200-240 mg/dL Borderline >240 mg/dL High Risk Glucose [Mass/Vol] 119 mg/dL 74-106 [facility] Comment on above: Fasting Glucose resu lt from 100 to 125 mg/dL suggests IMPAIRED HOMEOSTASIS per A.D.A. criteria. Potassium [Moles/Vol] 3.6 mmol/L 3.5-5.1 [facility] Protein [Mass/Vol] 6.7 g/dL 6.4-8.2 [facility] Sodium [Moles/Vol] 137 mmol/L 136-145 [facility] Triglyceride [Mass/Vol] 139 mg/dL <199 [facility] Comment on above: The drugs N-Acetylcy steine and Metamizole may falsely depress this assay.Serum Triglycerides Reference Interval Normal <150 mg/dL Borderline high 150 - 199 mg/dL High 200 - 499 mg/dL Very High > or = 500 mg/dL WBC (Bld) [#/Vol] 6.8 10*3/uL 4.4-11.0 [facility] Blood erythrocytes count (nu mber/volume)Ordered By: Tab Dupont on 03-25-2023 RBC (Bld) [#/Vol] 3.71 10*6/uL 4.6-6.2 [facility] Blood hemoglobin measurement (mass/volume)Ordered By: Tab Dupont on 03-25-2023 Hemoglobin (Bld) [Mass/Vol] 11.6 g/dL 13.0-16.5 [facility] Blood platelet mean volumeOr dered By: Tab Dupont on 03-25-2023 Platelet mean volume (Bld) [Entitic vol] 9.9 fL 6.2-12.0 [facility] Determination of erythrocyte mean corpuscular volume (MCV)Ordered By: Tab Dupont on 03-25-2023 MCV (RBC) [Entitic vol] 99.5 fL 80-94 [facility] Hematocrit Auto (Bld) [Volum e fraction]Ordered By: Tab Dupont on 03-25-2023 Hematocrit (Bld) [Volume fraction] 36.9 % 40-54 [facility] - Chemistry and C hemistry - challengeOrdered By: Tab Dupont on 03-25-2023 ALP [Catalytic activity/Vol] 121 U/L 45-117 [facility] ALT [Catalytic activity/Vol] 18 U/L 16-61 [facility] CO2 [Moles/Vol] 23.0 mmol/L 21.0-32.0 [facility] Globulin (S) [Mass/Vol] 4.3 g/dL 2.2-4.2 [facility] Urea nitrogen/Creatinine [Mass ratio] 22.6 mg/mg 10-20 [facility] - Hematology and Cell countsOrdered By: Tab Dupont on 03-25-2023 Erythrocyte distribution width (RBC) [Entitic vol] 50.3 fL 35.1-43.9 [facility] Erythrocyte distribution width (RBC) [Ratio] 13.5 % 11.6-14.6 [facility] MCH (RBC) [Entitic mass] 31.3 pg 27.0-32.0 [facility] MCHC Auto (RBC) [Mass/Vol]Or dered By: Tab uDpont on 03-25-2023 MCHC (RBC) [Mass/Vol] 31.4 g/dL 32-36 [facility] No Panel InformationOrdered By: Tab Dupont on 03-25-2023 Estimated GFR (MDRD) Amer 250 mL/min >60 [facility] Comment on above: GFR Calc Estimated GFR (MDRD) Non-Af Amer 207 mL/min >60 [facility] Comment on above: Non- GFR Calc Prostate Specific Antigen Screen 0.59 ng/mL 0.00-4.00 [facility] Comment on above: This test was perfor med using the TPSA assay method for [employer] chemistry system. Values obtained with differentassay methods cannot be used interchangably.When changing PSA assays in the course of monitoring apatient, additional sequential testing should be carriedout to confirm baseline values. Thyroid Stimulating Hormone (TSH) 3.33 uIU/mL 0.358-3.74 [facility] Platelets bldOrdered By: Regino Dupont on 03-25-2023 Platelets (Bld) [#/Vol] 301 10*3/uL 150-450 [facility] Serum or plasma albumin randall urement (mass/volume)Ordered By: Tab Dupont on 03-25-2023 Albumin [Mass/Vol] 2.4 g/dL 3.2-5.0 [facility] Serum or plasma albumin/glob ulin mass ratioOrdered By: Tab Dupont on 03-25-2023 Albumin/Globulin [Mass ratio] 0.6 {ratio} 0.9-2.4 [facility] Serum or plasma calcium randall urement (mass/volume)Ordered By: Tab Dupont on 03-25-2023 Calcium [Mass/Vol] 8.7 mg/dL 8.5-10.1 [facility] Serum or plasma cholesterol in HDL measurement (mass/volume)Ordered By: Tab Dupont on 03-25-2023 Cholesterol in HDL [Mass/Vol] 27 mg/dL >40 [facility] Comment on above: The drugs N-Acetylcy steine and Metamizole may falsely depress this assay. Reference Range HDL <40 mg/dL Low HDL Cholesterol HDL >or= 60 mg/dL High HDL Cholesterol Serum or plasma cholesterol in VLDL measurement (mass/volume)Ordered By: Tab Dupont on 03-25-2023 Cholesterol in VLDL [Mass/Vol] 28 mg/dL 5-40 [facility] Serum or plasma creatinine m easurement (mass/volume)Ordered By: Tab Dupont on 03-25-2023 Creatinine [Mass/Vol] 0.44 mg/dL 0.70-1.30 [facility] Comment on above: The validity of the calculated GFR & GFRAA in patients over 70 years has not been determined. Clinical correlation is essential. Serum or plasma low density lipoprotein (LDL) cholesterol measurement (mass/volume)Ordered By: Tab Dupont on 03-25-2023 Cholesterol in LDL [Mass/Vol] 108 mg/dL 0-130 [facility] Serum or plasma urea nitroge n measurement (mass/volume)Ordered By: Tab Dupont on 03-25-2023 Urea nitrogen [Mass/Vol] 10 mg/dL 7-18 [facility] Thin prep Papanicolaou smear with manual screeningOrdered By: Tab Dupont on 03-25-2023 Thin prep Papanicolaou smear with manual screening 13 U/L 15-37 [facility] Thin prep Papanicolaou smear with manual screening 7 5-15 [facility] CNPNon 12-02-2021 SHANTANU Telephone (HCSIND) GIVEN,ANMOL ([id number]) 1960 M Date Time Provider Department 12/02/21 [...] (Blistex) - sodium chloride 0.65 % 2 [place] (AYR, OCEAN) - saliva substitute combo no.9 [...] Of Date 12/02/2021 Noted Resolved NO SHOW [[id number]] 08/31/2013 05/29/2020 Perineal abscess [L02.215] 06/13/2019 05/29/2020 [...] Status:Closed by VITALY SMALLWOOD on 12/02/21 [facility]OL REYNOLDS ([id number]) 1960 M Date Time Provider Department 12/02/21 VITALY SMALLWOOD During your visit today, we recorded the following information about you: Vitaly Smallwood LPN 12/02/2021 9:05 AM Signed Ambrosio Monroy, DO Please advise if you are agreeable to signing and following for [facility] services? Our Clinicians will be sending [...] (Blistex) - sodium chloride 0.65 % 2 [place] (AYR, OCEAN) - saliva substitute combo no.9 [...] Of Date 12/02/2021 Noted Resolved NO SHOW [[id number]] 08/31/2013 05/29/2020 Perineal abscess [L02.215] 06/13/2019 05/29/2020 [...] WALLACE SMALLWOOD (more content not included)... Normal [facility] Telephone (HCSIND) GIVEN,ANMOL ([id number]) 1960 M Date Time Provider Department 12/02/21 [...] (Blistex) - sodium chloride 0.65 % 2 [place] (AYR, OCEAN) - saliva substitute combo no.9 [...] Of Date 12/02/2021 Noted Resolved NO SHOW [[id number]] 08/31/2013 05/29/2020 Perineal abscess [L02.215] 06/13/2019 05/29/2020 [...] Status:Closed by VITALY SMALLWOOD on 12/02/21 Normal [facility] ANTISMOOTH MUSCLE ABon 10-15 ANTISMOOTH MUSCLE AB Negative Normal NEGATIVE [facility] Comment on above: Performed By: #### A SMAB #### [facility] [address] [place] [address] SEEMA-WITH REFLEX TO ENAon SEEMA WITH REFLEX TO AYDEE Negative Normal NEGATIVE [facility] Comment on above: Result Comment: The Antinuclear Antibody (SEEMA) test was performed using indirect immunofluorescence assay with HEp-2 cells slide. Performed By: #### A NA2 #### [facility] [address] [place] [address] COMPREHENSIVE PANELon 2021 Glucose [Mass/Vol] 916 mg/dL Critically high 74 - 99 [facility] Comment on above: Order Comment: READ BACK CRIT GLU TO [place]AREED [place], 10/12/2021 00:08 Result Comment: READ BACK CRIT GLU TO [place], 10/12/2021 00:08 Performed By: #### C MP #### [facility] [address] [place] [address] Albumin [Mass/Vol] 3.9 g/dL Normal 3.4 - 5.0 [facility] Comment on above: Order Comment: READ BACK CRIT GLU TO [place]AREED [place], 10/12/2021 00:08 Performed By: #### C MP #### [facility] [address] [place] [address] ALP [Catalytic activity/Vol] 235 U/L High 33 - 136 [facility] Comment on above: Order Comment: READ BACK CRIT GLU TO [place]ED [place], 10/12/2021 00:08 Performed By: #### C MP #### [facility] [address] [place] [address] ALT [Catalytic activity/Vol] 192 U/L High 10 - 52 [facility] Comment on above: Order Comment: READ BACK CRIT GLU TO [place], 10/12/2021 00:08 Result Comment: Blanca ents treated with Sulfasalazine may generate falsely decreased results for ALT. Performed By: #### C MP #### [facility] [address] [place] [address] Anion gap [Moles/Vol] 16 mmol/L Normal 10 - 20 [facility] Comment on above: Order Comment: READ BACK CRIT GLU TO [place], 10/12/2021 00:08 Performed By: #### C MP #### [facility] [address] [place] [address] AST [Catalytic activity/Vol] 141 U/L High 9 - 39 [facility] Comment on above: Order Comment: READ BACK CRIT GLU TO [place], 10/12/2021 00:08 Performed By: #### C MP #### [facility] [address] [place] [address] Bilirubin [Mass/Vol] 0.7 mg/dL Normal 0.0 - 1.2 [facility] Comment on above: Order Comment: READ BACK CRIT GLU TO [place], 10/12/2021 00:08 Performed By: #### C MP #### [facility] [address] [place] [address] Calcium [Mass/Vol] 9.0 mg/dL Normal 8.6 - 10.6 [facility] Comment on above: Order Comment: READ BACK CRIT GLU TO [place]ED [place], 10/12/2021 00:08 Performed By: #### C MP #### [facility] [address] [place] [address] Chloride [Moles/Vol] 91 mmol/L Low 98 - 107 [facility] Comment on above: Order Comment: READ BACK CRIT GLU TO [place]ED [place], 10/12/2021 00:08 Performed By: #### C MP #### [facility] [address] [place] [address] Creatinine [Mass/Vol] 0.62 mg/dL Normal 0.50 - 1.30 [facility] Comment on above: Order Comment: READ BACK CRIT GLU TO [place]ED [place], 10/12/2021 00:08 Performed By: #### C MP #### [facility] [address] [place] [address] eGFR MALE >90 Normal >90 [facility] Comment on above: Order Comment: READ BACK CRIT GLU TO [place], 10/12/2021 00:08 Result Comment: CALC ULATIONS OF ESTIMATED GFR ARE PERFORMED USING THE 2020 CKD-EPI STUDY REFIT EQUATION WITHOUT THE RACE VARIABLE FOR THE IDMS-TRACEABLE CREATININE METHODS. https://jasn.asnjournals.org/content/early/ASN.369 2223744 Performed By: #### C MP #### [facility] [address] [place] [address] HCO3 (Bld) [Moles/Vol] 25 mmol/L Normal 21 - 32 [facility] Comment on above: Order Comment: READ BACK CRIT GLU TO [place]ED [place], 10/12/2021 00:08 Performed By: #### C MP #### [facility] [address] [place] [address] Potassium [Moles/Vol] 4.5 mmol/L Normal 3.5 - 5.3 [facility] Comment on above: Order Comment: READ BACK CRIT GLU TO FAREED YN, 10/12/2021 00:08 Performed By: #### C MP #### [facility] [address] [place] [address] Protein [Mass/Vol] 5.9 g/dL Low 6.4 - 8.2 [facility] Comment on above: Order Comment: READ BACK CRIT GLU TO [place]ED [place], 10/12/2021 00:08 Performed By: #### C MP #### [facility] [address] [place] [address] Sodium [Moles/Vol] 127 mmol/L Low 136 - 145 [facility] Comment on above: Order Comment: READ BACK CRIT GLU TO [place]AREED [place], 10/12/2021 00:08 Performed By: #### C MP #### [facility] [address] [place] [address] Urea nitrogen [Mass/Vol] 14 mg/dL Normal 6 - 23 [facility] Comment on above: Order Comment: READ BACK CRIT GLU TO [place]ED [place], 10/12/2021 00:08 Performed By: #### C MP #### [facility] [address] [place] [address] FERRITINon 10-12-2021 FERRITIN 1311 ug/L High 20 - 300 [facility] Comment on above: Performed By: #### F ERRI #### [facility] [address] [place] [address] IGG SUBCLASS 4on 10-12-2021 IGG SUBCLASS 4 25 mg/dL Normal 3 - 200 [facility] Comment on above: Performed By: #### I GGG4 #### [facility] [address] [place] [address] IRON + TIBCon 10-12-2021 % SATURATION 70 % High 25 - 45 [facility] Comment on above: Performed By: #### I BRENDAT #### [facility] [address] [place] [address] Iron [Mass/Vol] 180 ug/dL High 35 - 150 [facility] [place] Comment on above: Performed By: #### I RONT #### [facility] [address] [place] [address] TIBC 257 ug/dL Normal 240 - 445 [facility] Comment on above: Performed By: #### I RONT #### [facility] [address] [place] [address] CNPChina 09-10-2021 [facility]N [facility] GIVEN,ANMOL ([id number]) 1960 M Date Time Provider Department 09/10/21 [...] Of Date 09/10/2021 Noted Resolved NO SHOW [] 08/31/2013 05/29/2020 [...] Encounter Status:Closed by NEHEMIAS MCMANUS on 09/10/21 [facility] Sahil 08-14-2021 CNPN Telephone (COLEMAN) GIVENANMOL ([id number]) 1960 M Date Time Provider Department 08/14/21 PENNY CAMERON [...] Of Date 08/14/2021 Noted Resolved NO SHOW [[id number]] 08/31/2013 05/29/2020 Perineal abscess [L02.215] 06/13/2019 05/29/2020 Nicotine use disorder, F17.2 [F17.200] 06/14/2019 Pilonidal cyst without abscess [L05.91] 05/29/2020 Pilonidal cyst with abscess [L05.01] 12/31/2020 Perirectal abscess [K61.1] 01/16/2021 Diabetes (HCC) [E11.9] 01/18/2021 Encounter Status:Closed by BRYNN ARREOLA on 08/14/21 [facility] ([id number]) 1960 M Date Time Provider Department 08/09/21 PENNY CAMERON During your visit today, we recorded the following information about you: Byron Espinal RN 08/09/2021 2:56 PM Signed Records received from digestive disease consultants Records labeled and placed in records folder near [employer] desk Allergies As of Date: 08/09/2021 (No [...] Of Date 08/09/2021 Noted Resolved NO SHOW [[id number]] 08/31/2013 05/29/2020 Perineal abscess [L02.215] 06/13/2019 05/29/2020 Nicotine use disorder, F17.2 [F17.200] 06/14/2019 Pilonidal cyst without abscess [L05.91] 05/29/2020 Pilonidal cyst with abscess [L05.01] 12/31/2020 Perirectal abscess [K61.1] 01/16/2021 Diabetes (HCC) [E11.9] 01/18/2021 Encounter Status:Closed by BYRON ESPINAL RN on 08/23/21 [facility] CNOVon 08-05-2021 CNOV Office Visit (GENSME ) ANMOL REYNOLDS ([id number]) 1960 M Date Time Provider Department 08/05/21 [...] at 1 (more content not included)... Normal [facility] CA 19-9on 05-23-2021 CA 19-9 284 U/mL High <36 [facility] Comment on above: Performed By: #### C A199 #### [facility] [place] [address] #### TSH, FT4, FREET3 #### [facility] [address] [place] [address] Free T3on 05-22-2021 Free T3 [Mass/Vol] 1.7 pg/mL Low 2.3-4.1 [facility] Comment on above: Performed By: #### C A199 #### [facility] [address] [place] [address] #### TSH, FT4, FREET3 #### [facility] [address] [place] [address] Free T4on 05-22-2021 Free T4 [Mass/Vol] 1.2 ng/dL Normal 0.9-1.7 [facility] Reference Lab Comment on above: Performed By: #### C A199 #### [facility] [address] [place] [address] #### TSH, FT4, FREET3 #### [facility] [address] [place] [address] TSHon 05-22-2021 TSH Qn 1.450 m[IU]/L Normal 0.270-4.200 [facility] Comment on above: Performed By: #### C A199 #### [facility] [address], [place] [id number] #### TSH, FT4, FREET3 #### [facility] Routine Lab [address] [place], [place] [id number] Basic Metabolic Panelon -2 Anion gap [Moles/Vol] 14 mmol/L Normal 9-15 [facility] Comment on above: Performed By: #### B MP #### [facility] [address] [place] [address] Calcium [Mass/Vol] 8.4 mg/dL Low 8.5-9.9 [facility] Comment on above: Performed By: #### B MP #### [facility] [address] [place] [address] Chloride [Moles/Vol] 100 mmol/L Normal 95-107 [facility] Comment on above: Performed By: #### B MP #### [facility] [address] [place] [address] CO2 [Moles/Vol] 23 mmol/L Normal 20-31 [facility] Comment on above: Performed By: #### B MP #### [facility] [address] [place] [address] Creatinine [Mass/Vol] 0.57 mg/dL Low 0.70-1.20 [facility] Comment on above: Performed By: #### B MP #### [facility] [address] [place] [address] GFR/1.73 sq M predicted among blacks MDRD (S/P/Bld) [Vol rate/Area] mL/min/{1.73_m2} Normal >60 [facility] Comment on above: Result Comment: >60 mL/min/1.73m2 EGFR, calc. for ages 18 and older using the MDRD formula (not corrected for weight), is valid for stable renal function. Performed By: #### B MP #### [facility] [address] [place] [address] GFR/1.73 sq M.predicted MDRD (S/P/Bld) [Vol rate/Area] mL/min/{1.73_m2} Normal >60 [facility] Comment on above: Result Comment: >60 mL/min/1.73m2 EGFR, calc. for ages 18 and older using the MDRD formula (not corrected for weight), is valid for stable renal function. Performed By: #### B MP #### [facility] [address] [place] [address] Glucose [Mass/Vol] 245 mg/dL Critically high 70-99 M [facility] Comment on above: Performed By: #### B MP #### [facility] [address] [place] [address] Potassium [Moles/Vol] 3.9 mmol/L Normal 3.4-4.9 [facility] Comment on above: Performed By: #### B MP #### [facility] [address] [place] [address] Sodium [Moles/Vol] 137 mmol/L Normal 135-144 [facility] Comment on above: Performed By: #### B MP #### [facility] [address] [place] [address] Urea nitrogen [Mass/Vol] 13 mg/dL Normal 6-20 [facility] Comment on above: Performed By: #### B MP #### [facility] [address] [place] [address] Anion gap [Moles/Vol] 14 mmol/L [facility] [place], [place] Calcium [Mass/Vol] 8.4 mg/dL Low 8.5 - 9.9 mg/dL [facility] [place], [place] Chloride [Moles/Vol] 100 mmol/L [facility] [place] CO2 [Moles/Vol] 23 mmol/L [facility] [place] Creatinine [Mass/Vol] 0.57 mg/dL Low 0.7 - 1.2 mg/dL [facility] [place], [place] GFR >60.0 >60 [place], [place] Comment on above: >60 mL/min/1.73m2 EG FR, calc. for ages 18 and older using the MDRD formula (not corrected for weight), is valid for stable renal function. GFR Non- >60.0 >60 [place], [place] Comment on above: >60 mL/min/1.73m2 EG FR, calc. for ages 18 and older using the MDRD formula (not corrected for weight), is valid for stable renal function. Glucose [Mass/Vol] 245 mg/dL High 70 - 99 mg/dL [place] Interpretation and review of laboratory results Abnormal [place] Potassium [Moles/Vol] 3.9 mmol/L [place] Sodium [Moles/Vol] 137 mmol/L [place] Urea nitrogen [Mass/Vol] 13 mg/dL 6 - 20 mg/dL [place] CBC Auto Differentialon 10-06 Basophils (Bld) [#/Vol] 0.0 10*3/uL 0 - 0.2 K/uL [place] Basophils/100 WBC (Bld) 0.4 % M [place], [place] Eosinophils (Bld) [#/Vol] 0.2 10*3/uL 0 - 0.7 K/uL [place] Eosinophils/100 WBC (Bld) 1.6 % [place] Erythrocyte distribution width (RBC) [Ratio] 13.1 % 11.5 - 14.5 % [place] Hematocrit (Bld) [Volume fraction] 39.0 % Low 42 - 52 % [place] Hemoglobin (Bld) [Mass/Vol] 13.3 g/dL Low 14 - 18 g/dL [place] Interpretation and review of laboratory results Abnormal [place] Lymphocytes (Bld) [#/Vol] 1.8 10*3/uL 1 - 4.8 K/uL [place] Lymphocytes/100 WBC (Bld) 16.0 % [place] MCH (RBC) [Entitic mass] 33.3 pg High 27 - 31.3 pg [place] MCHC (RBC) [Mass/Vol] 34.0 % 33 - 37 % [place] MCV (RBC) [Entitic vol] 98.0 fL 80 - 100 fL [place] Monocytes (Bld) [#/Vol] 1.2 10*3/uL High 0.2 - 0.8 K/uL [place] Monocytes/100 WBC (Bld) 10.8 % M [place] Neutrophils Absolute 7.8 K/uL High 1.4 - 6 .5 K/uL [place] Neutrophils/100 WBC (Bld) 71.2 % [place] Platelets (Bld) [#/Vol] 232 10*3/uL 130 - 400 K/uL [place] RBC (Bld) [#/Vol] 3.98 10*6/uL Low [place] WBC (Bld) [#/Vol] 10.9 10*3/uL High 4.8 - 10.8 K/uL [place] CBC With Platelet and Differ entialon 10-25-2020 Basophils (Bld) [#/Vol] 0.0 10*3/uL Normal 0.0-0.2 [facility] Comment on above: Performed By: #### C BCWD #### [facility] [address] [place] [address] Basophils/100 WBC (Bld) 0.4 % Normal [facility] Comment on above: Performed By: #### C BCWD #### [facility] [address] [place] [address] Eosinophils (Bld) [#/Vol] 0.2 10*3/uL Normal 0.0-0.7 [facility] Comment on above: Performed By: #### C BCWD #### [facility] [address] [place] [address] Eosinophils/100 WBC (Bld) 1.6 % Normal [facility] Comment on above: Performed By: #### C BCWD #### [facility] [address] [place] [address] Erythrocyte distribution width (RBC) [Ratio] 13.1 % Normal 11.5-14.5 [facility] Comment on above: Performed By: #### C BCWD #### [facility] [address] [place] [address] Hematocrit (Bld) [Volume fraction] 39.0 % Low 42.0-52.0 [facility] Comment on above: Performed By: #### C BCWD #### [facility] [address] [place] [address] Hemoglobin (Bld) [Mass/Vol] 13.3 g/dL Low 14.0-18.0 [facility] Comment on above: Performed By: #### C BCWD #### [facility] [address] [place] [address] Lymphocytes (Bld) [#/Vol] 1.8 10*3/uL Normal 1.0-4.8 [facility] Comment on above: Performed By: #### C BCWD #### [facility] [address] [place] [address] Lymphocytes/100 WBC (Bld) 16.0 % Normal [facility] Comment on above: Performed By: #### C BCWD #### [facility] [address] [place] [address] MCH (RBC) [Entitic mass] 33.3 pg Critically high 27.0-3 1.3 [facility] Comment on above: Performed By: #### C BCWD #### [facility] [address] [place] [address] MCHC (RBC) [Mass/Vol] 34.0 % Normal 33.0-37.0 [facility] Comment on above: Performed By: #### C BCWD #### [facility] [address] [place] [address] MCV (RBC) [Entitic vol] 98.0 fL Normal 80.0-100.0 M [facility] Comment on above: Performed By: #### C BCWD #### [facility] [address] [place] [address] Monocytes (Bld) [#/Vol] 1.2 10*3/uL Critically high 0.2-0. 8 [facility] Comment on above: Performed By: #### C BCWD #### [facility] [address] [place] [address] Monocytes/100 WBC (Bld) 10.8 % Normal M [facility] Comment on above: Performed By: #### C BCWD #### [facility] [address] [place] [address] Neutrophils (Bld) [#/Vol] 7.8 10*3/uL Critically high 1.4-6.5 [facility] Comment on above: Performed By: #### C BCWD #### [facility] [address] [place] [address] Neutrophils/100 WBC (Bld) 71.2 % Normal [facility] Comment on above: Performed By: #### C BCWD #### [facility] [address] [place] [address] Platelets (Bld) [#/Vol] 232 10*3/uL Normal 130-400 [facility] Comment on above: Performed By: #### C BCWD #### [facility] [address] [place] [address] RBC (Bld) [#/Vol] 3.98 10*6/uL Low 4.70-6.10 [facility] Comment on above: Performed By: #### C BCWD #### [facility] [address] [place] [address] WBC (Bld) [#/Vol] 10.9 10*3/uL Critically high 4.8-10.8 [facility] Comment on above: Performed By: #### C BCWD #### [facility] [address] [place] [address] Hemoglobin A1con 01-21-2021 HbA1c (Bld) [Mass fraction] 12.1 % Critically high 4.8-5.9 [facility] Comment on above: Performed By: #### A 1C ####[facility] [place] [phone] HbA1c (Bld) [Mass fraction] 12.1 % High 4.8 - 5.9 % [place] Interpretation and review of laboratory results Abnormal [place] POCT Glucoseon 10-25-2020 Glucose [Mass/Vol] 372 mg/dL Critically high 60-115 M [facility] Comment on above: Performed By: #### P GLU #### [facility] [address] [place] [address] POC [facility] Comment on above: Result Comment: Noti fied RN or MD Performed By: #### P GLU #### [facility] [address] [place] [address] Glucose [Mass/Vol] 372 mg/dL High 60 - 115 mg/dl [place] Interpretation and review of laboratory results Abnormal [place] Performed on ACCU-CHEK [place] Comment on above: Notified RN or MD Glucose [Mass/Vol] 246 mg/dL Critically high 60-115 M [facility] Comment on above: Performed By: #### P GLU #### [facility] [address] [place] [address] POC [facility] Comment on above: Performed By: #### P GLU #### [facility] [address] [place] [address] Glucose [Mass/Vol] 246 mg/dL High 60 - 115 mg/dl [place] Interpretation and review of laboratory results Abnormal [place] Performed on ACCU-CHEK [place] LESS THAN 1 HOURon 2020 [...] Mickey Branch DO 10/26/20 Final result Normal [facility] OPERATIVE REPORTon [place] [address] OPERATIVE REPORT PATIENT NAME: ANMOL REYNOLDS : 1960 MED REC NO: [id number] ROOM: ACCOUNT NO: [id number] ADMIT DATE: 10/24/2020 PROVIDER: Opal Vigil MD [...] tolerated well. OPAL VIGIL MD [id number] Doc#: [id number] CC: Normal [facility] POCT Glucoseon 10-24-2020 Glucose [Mass/Vol] 439 mg/dL Critically high 60-115 M [facility] Comment on above: Performed By: #### P GLU #### [facility] [address] [facility] [address] POC Performed on ACCU-CHEK [facility] Comment on above: Result Comment: Karina chamberlain RN or Performed By: #### P GLU #### [facility] [address] [place] [address] Glucose [Mass/Vol] 439 mg/dL Critically high 60 - 1 15 mg/dl [place] Interpretation and review of laboratory results Abnormal [place] Performed on ACCU-CHEK [place] Comment on above: Notified RN or MD Glucose [Mass/Vol] 251 mg/dL Critically high 60-115 M [facility] Comment on above: Performed By: #### P GLU #### [facility] [address] [place] [address] POC Performed on [facility] Comment on above: Performed By: #### P GLU #### [facility] [address] [facility] [address] Glucose [Mass/Vol] 251 mg/dL High 60 - 115 mg/dl [place] Interpretation and review of laboratory results Abnormal [place] Performed on ACCU-CHEK [place] Glucose [Mass/Vol] 299 mg/dL Critically high 60-115 M [facility] Comment on above: Performed By: #### P GLU #### [facility] [address] [facility] [place] [address] POC Performed on [facility] Comment on above: Performed By: #### P GLU #### [facility] [address] [facility] [place] [address] Glucose [Mass/Vol] 299 mg/dL High 60 - 115 mg/dl [place] Interpretation and review of laboratory results Abnormal [place] Performed on ACCU-CHEK [place] COVID-19, NAAon 10-19-2020 COVID-19, JOSSY Not Detected Normal Not Detect [facility] Comment on above: Result Comment: This nucleic acid amplification test was developed and its performance characteristics determined by [employer]. Nucleic acid amplification tests include PCR and [...] detected) result in this assay. Performed at: [email or web address] [address] [email or web address] [facility] [place], [place] [id number] Clinical Rehab Liaison: Carmela Sue MD, Phone: [phone] Performed By: #### I RCOV #### [facility] [address] [place] [address] COVID-19, NAAon 10-18-2020 Source Swab Anterior nares Normal [facility] Comment on above: Performed By: #### I RCOV #### [facility] [address] [place] [address] Basic Metabolic Panelon 10-05 Anion gap [Moles/Vol] 14 mmol/L Normal 9-15 [facility] Comment on above: Performed By: #### B MP #### [facility] [address] [place] [address] Calcium [Mass/Vol] 9.3 mg/dL Normal 8.5-9.9 [facility] Comment on above: Performed By: #### B MP #### [facility] [address] [place] [address] Chloride [Moles/Vol] 100 mmol/L Normal 95-107 [facility] Comment on above: Performed By: #### B MP #### [facility] [address] [place] [address] CO2 [Moles/Vol] 23 mmol/L Normal 20-31 [facility] Comment on above: Performed By: #### B MP #### [facility] [address] [place] [address] Creatinine [Mass/Vol] 0.57 mg/dL Low 0.70-1.20 [facility] Comment on above: Performed By: #### B MP #### [facility] [address] [place] [address] GFR/1.73 sq M predicted among blacks MDRD (S/P/Bld) [Vol rate/Area] mL/min/{1.73_m2} Normal >60 [facility] Comment on above: Result Comment: >60 mL/min/1.73m2 EGFR, calc. for ages 18 and older using the MDRD formula (not corrected for weight), is valid for stable renal function. Performed By: #### B MP #### [facility] [address] [place] [address] GFR/1.73 sq M.predicted MDRD (S/P/Bld) [Vol rate/Area] mL/min/{1.73_m2} Normal >60 [facility] Comment on above: Result Comment: >60 mL/min/1.73m2 EGFR, calc. for ages 18 and older using the MDRD formula (not corrected for weight), is valid for stable renal function. Performed By: #### B MP #### [facility] [address] [place] [address] Glucose [Mass/Vol] 275 mg/dL Critically high 70-99 M [facility] Comment on above: Performed By: #### B MP #### [facility] [address] [place] [address] Potassium [Moles/Vol] 4.2 mmol/L Normal 3.4-4.9 [facility] Comment on above: Performed By: #### B MP #### [facility] [address] [place] [address] Sodium [Moles/Vol] 137 mmol/L Normal 135-144 [facility] Comment on above: Performed By: #### B MP #### [facility] [address] [place] [address] Urea nitrogen [Mass/Vol] 11 mg/dL Normal 6-20 [facility] Comment on above: Performed By: #### B MP #### [facility] [address] [place] [address] CBC With Platelet No Differe ntialon 10-15-2020 Erythrocyte distribution width (RBC) [Ratio] 12.7 % Normal 11.5-14.5 [facility] Comment on above: Performed By: #### C BCND #### [facility] [address] [place] [address] Hematocrit (Bld) [Volume fraction] 50.9 % Normal 42.0-52.0 [facility] Comment on above: Performed By: #### C BCND #### [facility] [address] [place] [address] Hemoglobin (Bld) [Mass/Vol] 17.4 g/dL Normal 14.0-18.0 [facility] Comment on above: Performed By: #### C BCND #### [facility] [address] [place] [address] MCH (RBC) [Entitic mass] 33.8 pg Critically high 27.0-3 1.3 [facility] Comment on above: Performed By: #### C BCND #### [facility] [address] [place] [address] MCHC (RBC) [Mass/Vol] 34.2 % Normal 33.0-37.0 [facility] Comment on above: Performed By: #### C BCND #### [facility] [address] [place] [address] MCV (RBC) [Entitic vol] 98.8 fL Normal 80.0-100.0 M [facility] Comment on above: Performed By: #### C BCND #### [facility] [address] [place] [address] Platelets (Bld) [#/Vol] 308 10*3/uL Normal 130-400 [facility] Comment on above: Performed By: #### C BCND #### [facility] [address] [place] [address] RBC (Bld) [#/Vol] 5.15 10*6/uL Normal 4.70-6.10 [facility] Comment on above: Performed By: #### C BCND #### [facility] [address] [place] [address] WBC (Bld) [#/Vol] 9.6 10*3/uL Normal 4.8-10.8 [facility] Comment on above: Performed By: #### C BCND #### [facility] [address] [place] [address] Partial Thromboplastin Timeo n 10-15-2020 aPTT Coag (Bld) [Time] 33.9 s Normal 24.4-36.8 [facility] Comment on above: Result Comment: Effe ctive 08/08/2020: Heparin Therapeutic Range: 64.0 ? 98.0 seconds. Performed By: #### P TT #### [facility] [address] [place] [address] Prothrombin Timeon INR Coag (PPP) [Relative time] 0.9 {INR} Normal [facility] Comment on above: Performed By: #### P T #### [facility] [address] [place] [address] PT Coag (PPP) [Time] 12.6 s Normal 12.3-14.9 [facility] Comment on above: Performed By: #### P T #### [facility] [address] [place] [address] MRI Spine Lumbar w/ + w/o Co ntraston 06-15-2018 MRI Spine Lumbar w/ + w/o Contrast Patient Name: ANMOL REYNOLDS MRI Exam Date/Time 06/14/2018 15:59:06 EDT Exam MRI Spine Lumbar w/ + w/o Contrast Ordering Physician [id number] -MELITON BLAS Accession Number [id number] CPT4 Codes 26314 () Reason For Exam lt leg radiculopathy [...] Transcribed Date and Time: 06/15/2018 8:33 Normal [facility] Glucose, WB POCon 08-05-2017 Glucose mass conc 179 mg/dL High 70-100 [facility] Comment on above: Performed By: #### 1 [id number] ####[facility] [address] [place] [address] Glucose mass conc 194 mg/dL High 70-100 [facility] Comment on above: Performed By: #### 1 [id number] ####[facility] [address] [place] [address] SPINE LUMBAR SINGLE VIEWon 1 10-05-2016 SPINE LUMBAR SINGLE VIEW DATE OF EXAM: N 2016 1:18PMCLINICAL HISTORY/ Name: CK REYNOLDSTUDY:SPINE LUMBAR SINGLE VIEW; 08/05/2017 1:18 pmINDICATION:intra op.COMPARISON:None. CESSION NUMBER(S):[id number] RDERING CLINICIAN:OPAL MONGE:Single lateral view of the lumbar spine during lumbar spine surgery. Surgical marker at L5-S1 level. Fluoroscopic time is 0.05 sec.CONCLUSION: IMPRESSION:Fluoroscop ic image of the lumbar spine during surgery. Please refer to the surgical note for further details. Normal [facility] CBC With Differentialon 07-07 Basophils Auto #/vol (Bld) 0.02 10*3/uL Normal 0.01-0.09 [facility] Comment on above: Performed By: #### 2 [id number] ####[facility] [address] [place] [address] Basophils/100 WBC Auto (Bld) 0.2 % Normal 0.0-1.3 [facility] Comment on above: Performed By: #### 2 [id number] ####[facility] [address] [place] [address] Eosinophils 0.02 10*3/uL Normal 0.01-0.46 [facility] Comment on above: Performed By: #### 2 [id number] ####[facility] [address] [place] [address] Eosinophils/100 leukocytes 0.2 % Normal 0.0-6.7 [facility] Comment on above: Performed By: #### 2 [id number] ####[facility] [address] [place] [address] Erythrocyte distribution width Auto Ratio (RBC) 12.5 % Normal 12.0-15.4 [facility] Comment on above: Performed By: #### 2 [id number] ####[facility] [address] [place] [address] Erythrocytes (RBC) 0.00 10*3/uL Normal [facility] Comment on above: Performed By: #### 2 [id number] ####[facility] [address] [place] [address] Erythrocytes (RBC) 5.10 10*6/uL Normal 4.08-6.37 [facility] Comment on above: Performed By: #### 2 836010 ####[facility] [address] [place] [address] Erythrocytes (RBC) 0.0 /100{WBCs} Normal [facility] Comment on above: Performed By: #### 2 [id number] ####[facility] [address] [place] [address] Hematocrit (HCT) 49.7 % Normal 38.4-54.9 [facility] Comment on above: Performed By: #### 2 [id number] ####[facility] [address] [place] [address] Hemoglobin mass conc (Bld) 17.2 g/dL Normal 12.8-17.7 [facility] Comment on above: Performed By: #### 2 [id number] ####[facility] [address] [place] [address] Imm Grans Absolute 0.03 10*3/uL Normal 0.00-0.21 [facility] Comment on above: Performed By: #### 2 [id number] ####[facility] [address] [place] [address] Immature granulocytes #/vol (Bld) 0.3 % Normal [facility] Comment on above: Performed By: #### 2 [id number] ####[facility] [address] [place] [address] Lymphocytes 1.28 10*3/uL Normal 0.40-2.84 [facility] Comment on above: Performed By: #### 2 [id number] ####[facility] [address] [place] [address] Lymphocytes/100 leukocytes 11.9 % Normal 9.4-41.1 [facility] Comment on above: Performed By: #### 2 996019 ####[facility] [address] [place] [address] MCH 33.7 pg High 27.5-32.9 [facility] Comment on above: Performed By: #### 2 [id number] ####[facility] [address] [place] [address] MCHC mass conc (RBC) 34.6 g/dL Normal 30.5-35.4 [facility] Comment on above: Performed By: #### 2 [id number] ####[facility] [address] [place] [address] MCV 97.5 fL Normal 83.3-98.2 [facility] Comment on above: Performed By: #### 2 [id number] ####[facility] [address] [place] [address] Monocytes 0.85 10*3/uL Normal 0.25-1.33 [facility] Comment on above: Performed By: #### 2 [id number] ####[facility] [address] [facility] [place] [address] Monocytes/100 leukocytes 7.9 % Normal 3.0-16.2 [facility] Comment on above: Performed By: #### 2 [id number] ####[facility] [address] [place] [address] Neutrophils 8.54 10*3/uL High 2.22-7.53 [facility] Comment on above: Performed By: #### 2 [id number] ####[facility] [address] [facility] [place] [address] Neutrophils/100 leukocytes 79.5 % High 46.2-79.1 [facility] Comment on above: Performed By: #### 2 [id number] ####[facility] [address] [facility] [place] [address] Platelet mean volume (PMV) 10.4 fL Normal 9.9-12.1 [facility] Comment on above: Performed By: #### 2 [id number] ####[facility] [address] [place] [address] Platelets 334 10*3/uL Normal 155-404 [facility] Comment on above: Performed By: #### 2 [id number] ####[facility] [address] [place] [address] RDW SD 45.3 fL Normal 39.3-48.6 [facility] Comment on above: Performed By: #### 2 [id number] ####[facility] [address] [place] [address] WBC (Leukocytes) 10.7 10*3/uL Normal 4.2-11.0 [facility] Comment on above: Performed By: #### 2 [id number] ####[facility] [address] [place] [address] CHEST 2 VIEWS PA AND LATon 1 CHEST 2 VIEWS PA AND LAT DATE OF EXAM: O ct 2016 8:43AMCLINICAL HISTORY/ Name: GIVEN, BRIANSTUDY:CHEST 2 VIEWS PA AND LAT; 08/03/2017 8:43 amINDICATION:preop.CO MPARISON:None.ACCESSI ON NUMBER(S):[id number] [facility]IAN:OPAL MONGE:There is no definite acute infiltrate. The costophrenic angles are not blunted. There is no pneumothorax. The heart size and mediastinal width are within gross limits of normal. No prior chest radiograph is available for comparison.CONCLUSION : IMPRESSION:No definite acute pulmonary findings Normal [facility] Comprehensive Metabolic Pane antonio 08-03-2017 Alanine aminotransferase (ALT) 18 U/L Normal [facility] Comment on above: Performed By: #### 1 [id number] ####[facility] [address] [place] [address] Albumin 4.9 g/dL Normal 3.4-5.0 [facility] Comment on above: Performed By: #### 1 [id number] ####[facility] [address] [place] [address] Albumin/Globulin Ratio 2.0 {ratio} Normal 0.9-2.4 [facility] Comment on above: Performed By: #### 1 [id number] ####[facility] [address] [place] [address] Alkaline phosphatase (ALP) 119 U/L High 45-117 [facility] Comment on above: Performed By: #### 1 [id number] ####[facility] [address] [place] [address] Anion gap 15 mmol/L Normal 10-20 [facility] Comment on above: Performed By: #### 1 [id number] ####[facility] [address] [place] [address] Aspartate aminotransferase (AST) 15 U/L Normal 13-39 [facility] Comment on above: Performed By: #### 1 [id number] ####[facility] [address]tc[address] [facility] [place] [address] Bicarbonate (HCO3) 22 mmol/L Normal 21-32 [facility] Comment on above: Performed By: #### 1 [id number] ####[facility] [address] [facility] [place] [address] Bilirubin (total) 1.0 mg/dL Normal 0.0-1.2 [facility] Comment on above: Performed By: #### 1 [id number] ####[facility] [address] [facility] [place] [address] BUN/Creatinine Ratio 19 mg/mg Normal 5-25 [facility] Comment on above: Performed By: #### 1 [id number] ####[facility] [address] [place] [address] Calcium 10.0 mg/dL Normal 8.6-10.3 [facility] Comment on above: Performed By: #### 1 [id number] ####[facility] [address] [facility] [place] [address] Chloride 103 mmol/L Normal 98-107 [facility] Comment on above: Performed By: #### 1 [id number] ####[facility] [address] [place] [address] Creatinine 0.64 mg/dL Normal 0.50-1.30 [facility] Comment on above: Performed By: #### 1 [id number] ####[facility] [address] [facility] [place] [address] eGFR (MDRD) mL/min/{1.73_m2} Normal [facility] Comment on above: Result Comment: Inte rpretation for Chronic Kidney Disease:Stages 1&2 >60 Healthy or potential kidney damage.Mild decrease of GFR.Stage 3 30-59 Moderate decrease of GFR.Stage 4 15-29 Severe decrease of GFR.Stage 5 <15 Kidney failure or on dialysis. Performed By: #### 1 [id number] ####[facility] [address] [facility] [place] [address] Glucose mass conc 233 mg/dL High 70-100 [facility] Comment on above: Performed By: #### 1 [id number] ####[facility] [address] [place] [address] Potassium molar conc 3.8 mmol/L Normal 3.5-5.1 [facility] Comment on above: Performed By: #### 1 [id number] ####[facility] [address] [place] [address] Protein 7.4 g/dL Normal 6.4-8.2 [facility] Comment on above: Performed By: #### 1 444386 ####[facility] [address] [place] [address] Sodium 136 mmol/L Normal 136-145 [facility] Comment on above: Performed By: #### 1 [id number] ####[facility] [address] [place] [address] Urea nitrogen 12 mg/dL Normal 6-23 [facility] Comment on above: Performed By: #### 1 [id number] ####[facility] [address] [place] [address] ESR, Westergrenon 08-03-2017 ESR, Westergren 2 mm/h Normal 0-15 [facility] Comment on above: Performed By: #### 2 [id number] ####[facility] [address] [place] [address] Prothrombin Time (PT) & Part ial Thromboplastin (PTT)on 08-03-2017 aPTT 29.2 s Normal 22.1-35.3 [facility] Comment on above: Result Comment: Hepa rin Therapeutic Range: 71 - 97 sec Performed By: #### P TPTT ####[facility] [address] [place] [address] INR Coag RelTime (PPP) 0.84 {INR} Low 0.85-1.16 [facility] Comment on above: Result Comment: Coum john Therapy:1.5 - 2.0 Low Intensity Therapy2.0 - 3.0 Moderate Intensity Therapy2.5 - 3.5 High (1) Intensity Therapy3.0 - 4.0 High (2) Intensity Therapy Performed By: #### P TPTT ####[facility] [address] [place] [address] Prothrombin time (PT) Coag time (PPP) 11.4 s Normal 11.3-14.5 [facility] Comment on above: Performed By: #### P TPTT ####[facility] [address] [place] [address] Urinalysison 08-03-2017 Ascorbic Acid Negative Normal Negative [facility] Comment on above: Performed By: #### 1 [id number] ####[facility] [address] [place] [address] Automated Urine Microscopy Not indicated Normal [facility] Comment on above: Performed By: #### 1 [id number] ####[facility] [address] [place] [address] Bilirubin Ql (U) Negative Normal Negative [facility] Comment on above: Performed By: #### 1 [id number] ####[facility] [address] [place] [address] Blood Negative Normal Negative [facility] Comment on above: Performed By: #### 1 [id number] ####[facility] [address] [place] [address] Glucose mass conc mg/dL Abnormal Negative [facility] Comment on above: Performed By: #### 1 [id number] ####[facility] [address] [place] [address] Protein Negative Normal Negative [facility] Comment on above: Performed By: #### 1 [id number] ####[facility] [address] [place] [address] Urine, appearance Clear Normal Clear [facility] Comment on above: Performed By: #### 1 [id number] ####[facility] [address] [place] [address] Urine, color Yellow Normal [facility] Comment on above: Performed By: #### 1 [id number] ####[facility] [address] [place] [address] Urine, ketones presence Negative Normal Negative [facility] Comment on above: Performed By: #### 1 [id number] ####[facility] [address] [place] [address] Urine, nitrite presence Negative Normal Negative [facility] Comment on above: Performed By: #### 1 [id number] ####[facility] [address] [place] [address] Urine, pH 5.0 [pH] Normal 5.0-9.0 [facility] Comment on above: Performed By: #### 1 [id number] ####[facility] [address] [place] [address] Urine, specific gravity 1.033 Normal 1.003-1.035 [facility] Comment on above: Performed By: #### 1 [id number] ####[facility] [address] [place] [address] Urine, urobilinogen <2.0 Normal Negative [facility] Comment on above: Performed By: #### 1 [id number] ####[facility] [address] [place] [address] WBC (Leukocytes) Negative Normal Negative [facility] Comment on above: Performed By: #### 1 [id number] ####[facility] [address] [place] [address] DX LUMBOSACRAL SPINE, BENDIN G VIEWS ONLY, 2 OR 3 VIEWSon 05-27-2017 DX LUMBOSACRAL SPINE, BENDING VIEWS ONLY, 2 OR 3 VIEWS Performed at [facility] APPROVED BY: Robert Velarde MD EXAM TITLE:DX [...] levels unchanged with flexion or extension. Normal [facility] MRI LUMBAR SPINE W/O CONTRAS Ton 05-27-2017 MRI LUMBAR SPINE W/O CONTRAST Performed at [facility] APPROVED BY: Jose Schumacher MD LUMBAR SPINE [...] at the L4-L5 and L5-S1 levels. Normal [facility] Vital Signs Date Time Vital Sign Value Performing Clinician Facility 04-28-2025 20:11-0400 Body temperature 97.3 [degF] rBad Campos MD Work Phone: [facility] 04-28-2025 20:11-0400 Diastolic blood pressure 64 mm[Hg] Brad Campos MD Work Phone: [facility] 04-28-2025 20:11-0400 Heart rate 76 /min Brad Campos MD Work Phone: [facility] 04-28-2025 20:11-0400 Respiratory rate 16 /min Brad Campos MD Work Phone: [facility] 04-28-2025 20:11-0400 SaO2% (BldA) [Mass fraction] 92 % Brad Campos MD Work Phone: [facility] 04-28-2025 20:11-0400 Systolic blood pressure 106 mm[Hg] Brad Campos MD Work Phone: [facility] 04-24-2025 13:34-0400 Body height 190.5 cm Brad Campos MD Work Phone: [facility] 04-22-2025 03:00-0400 Body mass index (BMI) [Ratio] 24.42 kg/m2 Brad Campos MD Work Phone: [facility] 04-22-2025 03:00-0400 Body weight 88.63 kg Brad Campos MD Work Phone: [facility] 03-14-2025 13:56-0400 Body temperature 98.01 [degF] Milad Goodson MD Work Phone: [facility] 03-14-2025 13:56-0400 Diastolic blood pressure 70 mm[Hg] Milad Goodson MD Work Phone: [facility] 03-14-2025 13:56-0400 Heart rate 84 /min Milad Goodson MD Work Phone: [facility] 03-14-2025 13:56-0400 Respiratory rate 20 /min Milad Goodson MD Work Phone: [facility] 03-14-2025 13:56-0400 SaO2% (BldA) [Mass fraction] 97 % Milad Goodson MD Work Phone: [facility] 03-14-2025 13:56-0400 Systolic blood pressure 107 mm[Hg] Milad Goodson MD Work Phone: [facility] 03-07-2025 08:54-0400 Diastolic blood pressure 52 mm[Hg] Yoana Altaf RN DIABETES - PROPOSAL ENGINEER Work Phone: [facility] 03-07-2025 08:54-0400 Heart rate 68 /min Yoana Altaf RN DIABETES - PROPOSAL ENGINEER Work Phone: [facility] 03-07-2025 08:54-0400 Systolic blood pressure 107 mm[Hg] Yoana Altaf RN DIABETES - PROPOSAL ENGINEER Work Phone: [facility] 01-31-2025 13:27-0400 Body temperature 98.6 [degF] Milad Goodson MD Work Phone: [facility] 01-31-2025 13:27-0400 Diastolic blood pressure 90 mm[Hg] Milad Goodson MD Work Phone: [facility] 01-31-2025 13:27-0400 Heart rate 80 /min Milad Goodson MD Work Phone: [facility] 01-31-2025 13:27-0400 Respiratory rate 18 /min Milad Goodson MD Work Phone: [facility] 01-31-2025 13:27-0400 SaO2% (BldA) [Mass fraction] 95 % Milad Goodson MD Work Phone: [facility] 01-31-2025 13:27-0400 Systolic blood pressure 136 mm[Hg] Milad Goodson MD Work Phone: [facility] 06-13-2024 10:56-0400 Diastolic blood pressure 72 mm[Hg] Sci [employer]er [employer] 06-13-2024 10:56-0400 Heart rate 85 /min [employer] 06-13-2024 10:56-0400 Respiratory rate 18 /min Sci [employer] 06-13-2024 10:56-0400 SaO2% (BldA) [Mass fraction] 98 % [employer] 06-13-2024 10:56-0400 Systolic blood pressure 114 mm[Hg] [employer] 05-22-2024 08:09-0400 Body temperature 96.8 [degF] [employer] Work Phone: [facility] 05-22-2024 08:09-0400 Diastolic blood pressure 76 mm[Hg] Lehoel DO Work Phone: [facility] 05-22-2024 08:09-0400 Heart rate 70 /min [employer] DO Work Phone: [facility] 05-22-2024 08:09-0400 Respiratory rate 16 /min Lehoel DO Work Phone: [facility] 05-22-2024 08:09-0400 SaO2% (BldA) [Mass fraction] 99 % Lehoel [employer] Work Phone: [facility] 05-22-2024 08:09-0400 Systolic blood pressure 128 mm[Hg] Lehoel [employer] Work Phone: [facility] 05-19-2024 13:00-0400 Body mass index (BMI) [Ratio] 26.62 kg/m2 Lehoel DO Work Phone: [facility] [employer] 05-19-2024 13:00-0400 Body weight 96.62 kg Rodney Guerrero DO Work Phone: [facility] [employer] 05-18-2024 01:26-0400 Body height 190.5 cm Rodney Guerrero DO Work Phone: [facility] [employer] 05-06-2024 17:08-0400 Body temperature 98.01 [degF] Dashawn Grimm MD Work Phone: [facility] [employer] 05-06-2024 17:08-0400 Diastolic blood pressure 67 mm[Hg] Dashawn Grimm MD Work Phone: [facility] [employer] 05-06-2024 17:08-0400 Heart rate 82 /min Dashawn Grimm MD Work Phone: [facility] [employer] 05-06-2024 17:08-0400 Respiratory rate 16 /min Dashawn Grimm MD Work Phone: [facility] [employer] 05-06-2024 17:08-0400 SaO2% (BldA) [Mass fraction] 91 % Dashawn Grimm MD Work Phone: [facility] [employer] 05-06-2024 17:08-0400 Systolic blood pressure 114 mm[Hg] Dashawn Grimm MD Work Phone: [facility] [employer] 05-05-2024 18:30-0400 Body height 190.5 cm Dashawn Grimm MD Work Phone: [facility] [employer] 05-05-2024 18:30-0400 Body mass index (BMI) [Ratio] 26.62 kg/m2 Dashawn Grimm MD Work Phone: [facility] [employer] 05-05-2024 18:30-0400 Body weight 96.62 kg Dashawn Grimm MD Work Phone: [facility] [employer] 04-20-2024 11:39-0400 Body temperature 97.81 [degF] Ene Dickens MD Work Phone: [facility] [employer] 04-20-2024 11:39-0400 Diastolic blood pressure 81 mm[Hg] Ene Dickens MD Work Phone: [facility] [employer] 04-20-2024 11:39-0400 Heart rate 84 /min Ene Dickens MD Work Phone: [facility] [employer] 04-20-2024 11:39-0400 SaO2% (BldA) [Mass fraction] 97 % Ene Dickens MD Work Phone: [facility] [employer] 04-20-2024 11:39-0400 Systolic blood pressure 135 mm[Hg] Ene Dickens MD Work Phone: [facility] [employer] 04-20-2024 09:55-0400 Respiratory rate 18 /min Ene Dickens MD Work Phone: [facility] [employer] 04-19-2024 05:47-0400 Body mass index (BMI) [Ratio] 26.62 kg/m2 Ene Dickens MD Work Phone: [facility] [employer] 04-19-2024 05:47-0400 Body weight 96.6 kg Ene Dickens MD Work Phone: [facility] [employer] 04-17-2024 00:02-0400 Body height 190.5 cm Ene Dickens MD Work Phone: [facility] [employer] 01-29-2024 15:58-0400 Body height 190.5 cm Carlos Gillette MD Work Phone: [facility] [employer] 01-29-2024 15:58-0400 Body mass index (BMI) [Ratio] 22.5 kg/m2 Carlos Gillette MD Work Phone: [facility] [employer] 01-29-2024 15:58-0400 Body weight 81.65 kg Carlos Gillette MD Work Phone: [facility] [employer] 12-29-2023 14:56-0400 Body height 190.5 cm Carlos Gillette MD Work Phone: [facility] [employer] 12-29-2023 14:56-0400 Body mass index (BMI) [Ratio] 22.87 kg/m2 Carlos Gillette MD Work Phone: [facility] [employer] 12-29-2023 14:56-0400 Body weight 83.01 kg Carlos Gillette MD Work Phone: [facility] 05-23-2023 12:06-0400 Diastolic blood pressure 80 mm[Hg] Colt Klein [employer] Work Phone: [facility] 05-23-2023 12:06-0400 Heart rate 80 /min Colt Klein [employer] Work Phone: [facility] 05-23-2023 12:06-0400 Respiratory rate 18 /min Colt Klein [employer] Work Phone: [facility] 05-23-2023 12:06-0400 SaO2% (BldA) [Mass fraction] 98 % Colt Klein [employer] Work Phone: [facility] 05-23-2023 12:06-0400 Systolic blood pressure 110 mm[Hg] Colt Klein [employer] Work Phone: [facility] 05-23-2023 07:54-0400 Body height 190.5 cm Colt Klein [employer] Phone: [facility] 05-23-2023 07:54-0400 Body mass index (BMI) [Ratio] 22.5 kg/m2 Colt Klein [employer] Phone: [facility] 05-23-2023 07:54-0400 Body temperature 97.9 [degF] Colt Klein [employer] Phone: [facility] 05-23-2023 07:54-0400 Body weight 81.65 kg Colt Klein [employer] Phone: [facility] 10-25-2020 00:47-0500 Body Temperature 97.7 [degF] [facility] [place] [place] 10-25-2020 00:47-0500 BP Diastolic 59 mm[Hg] [facility] [facility] Center[facility] , [place] 10-25-2020 00:47-0500 BP Systolic 100 mm[Hg] [facility] [place] 10-25-2020 00:47-0500 Pulse (Heart Rate) 80 /min [facility] YaritzaCentral [facility]–MontgomeryClimateminderMOBER[facility], [place] 10-25-2020 00:47-0500 Pulse Oximetry 97 % Opal Vigil [facility] [place] , [place] 10-25-2020 00:47-0500 Respiratory Rate 16 /min Opal Vigil [facility] [place], [place] 10-24-2020 08:01-0500 BMI (Body Mass Index) 25.68 kg/m2 [facility] [place] 10-24-2020 08:01-0500 Body weight 90.72 kg [facility] , [place] 10-24-2020 08:01-0500 Height 188 cm [facility] [place] Encounters Encounter Date Encounter Type Care Provider Facility Start: 05-25-2025 ambulatory Tab MURO Faci lity:[facility] Start: 05-24-2025 End: 05-24-2025 Telephone encounter Cheryl Pimentel LPN [facility] Infectious Disease [facility] Comment on above: Labs Only (Missed la b notification ) Start: 05-22-2025 ambulatory Ambrosio M Esterle Facility :[facility] Start: 05-15-2025 ambulatory Tab Dupont OLS Faci lity:[facility] Start: 05-11-2025 ambulatory Ambrosio M Esterle Facility :[facility] Start: 05-09-2025 ambulatory Ambrosio M Esterle Facility :[facility] Start: 05-03-2025 ambulatory Tab Dupont OLS Faci lity:[facility] Start: 05-01-2025 ambulatory Tab Dupont OLS Faci lity:[facility] Start: 04-21-2025 End: 04-28-2025 Evaluation and management of inpatient Brad Campos MD Work Phone: [facility] Comment on above: Other acute osteomye litis, other site (HCC) (Primary Dx); Pressure injury of coccygeal region, stage 3 (HCC); Lumbar stenosis with neurogenic claudication; Osteoarthritis, unspecified osteoarthritis type, unspecified site; Other intervertebral disc displacement, lumbar region Start: 04-18-2025 ambulatory Tab Dupont OLS Faci lity:[facility] Start: 04-16-2025 ambulatory Tab Dupont OLS Faci lity:[facility] Start: 03-24-2025 End: 03-24-2025 Telephone encounter Anmol Herbert MD Work Phone: Urology Start: 03-20-2025 End: 03-20-2025 ambulatory ANMOL HERBERT Facility:[facility] Start: 03-14-2025 End: 03-14-2025 Patient encounter procedure Milad Goodson MD Work Phone: Plastic Surgery Comment on above: Chronic osteomyeliti s (HCC) (Primary Dx); Severe protein-calorie malnutrition (HCC); Ureteral calculi; Complicated UTI (urinary tract infection); Neurogenic bladder; Type 2 diabetes mellitus with hyperglycemia, with long-term current use of insulin (HCC) Start: 03-14-2025 End: 03-14-2025 ambulatory MILAD GOODSON Facility:[facility] Start: 03-07-2025 End: 03-07-2025 Telephone encounter Yoana Solitario APRN - PROPOSAL ENGINEER Work Phone: [facility] Comment on above: Other Start: 03-07-2025 End: 03-07-2025 Office outpatient visit 25 minutes Yoana Solitario APRN - PROPOSAL ENGINEER Work Phone: [facility] Comment on above: Ureteral stent prese nt (Primary Dx); Kidney stone; Hydronephrosis, unspecified hydronephrosis type Start: 03-07-2025 End: 03-07-2025 ambulatory YOANA ALTAF [facility] Start: 03-01-2025 End: 03-01-[address] Ambrosio Monroy DO Work Phone: [facility] Work Phone: Start: 03-01-2025 End: 03-01-2025 Departed Referred Tab SULLIVAN Start: 03-01-2025 Registered Referred Tab SULLIVAN Start: 03-01-2025 End: 03-01-2025 ambulatory Tab MURO Facility:[facility] Start: 02-19-2025 End: 03-08-2025 Telephone encounter Anmol Herbert MD Work Phone: [place] [facility] Comment on above: Hospital F/U Start: 02-16-2025 End: 02-22-2025 Evaluation and management of inpatient OHWARD GAMA Facility:[facility] Start: 02-15-2025 End: 02-15-[address] Ambrosio Monroy DO Work Phone: [facility] Work Phone: Start: 02-15-2025 End: 02-15-2025 Departed Referred Tab SULLIVAN Start: 02-15-2025 End: 02-15-2025 ambulatory Tab MURO Facility:[facility] Start: 01-31-2025 End: 01-31-2025 Patient encounter procedure [...] Start: 01-31-2025 End: 01-31-2025 ambulatory MILAD GOODSON Facility:[facility] Start: 01-09-2025 End: 01-09-2025 Departed Referred Tab SULLIVAN Start: 01-09-2025 End: 01-09-2025 ambulatory Tab MURO Facility:[facility] Start: 01-04-2025 ambulatory KRISTINE Mendoza ity:[facility] Start: 01-04-2025 End: 01-04-2025 Subsequent hospital visit by physician [facility] (1.5t) Radiology Start: 12-07-2024 End: 12-07-[address] Ambrosio Monroy DO Work Phone: [facility] Work Phone: Start: 12-07-2024 End: 12-07-2024 Departed Referred Tab SULLIVAN Start: 12-07-2024 Registered Referred Tab Adrianneemmanuel - [employer] Start: 12-07-2024 End: 12-07-2024 ambulatory Tab MURO Facility:[facility] Start: 11-30-2024 End: 11-30-[address] Ambrosio Monroy DO Work Phone: [facility] Work Phone: Start: 11-30-2024 End: 11-30-2024 Departed Referred Tab Adrianneemmanuel [employer] Start: 11-30-2024 Registered Referred Tab Adrianneemmanuel - [employer] Start: 11-29-2024 End: 11-30-[address] Ambrosio Monroy DO Work Phone: [facility] Work Phone: Start: 11-29-2024 End: 11-29-2024 Departed Referred Daisy Costello MD -[employer] Start: 11-29-2024 End: 11-29-2024 ambulatory Daisy MURO Facility:[facility] Start: 11-08-2024 End: 11-08-2024 Office outpatient visit 25 minutes Faisal Simeon DO [facility] Comment on above: Paraplegia (HCC) (Pr imary Dx); Neurogenic bladder; Gross hematuria; Neuropathic pain; Pressure injury of skin, unspecified injury stage, unspecified location Start: 11-08-2024 End: 11-08-2024 ambulatory FAISAL SIMEON Facility:[facility] Start: 10-25-2024 End: 11-20-2024 Telephone encounter Carlos Gillette MD Work Phone: [facility] Comment on above: Appointment Start: 10-11-2024 End: 01-10-2025 Transcribe Orders Kristine Howell RN DIABETES - PROPOSAL ENGINEER Work Phone: [facility] [employer] Sched[employer] Comment on above: Pressure ulcer of sa cral region, unspecified stage (Primary Dx) Start: 10-10-2024 End: 10-10-2024 Departed Referred Tab SULLIVAN Start: 10-10-2024 End: 10-10-2024 ambulatory Tab MURO Facility:[facility] Start: 10-03-2024 End: 10-03-2024 Departed Referred Tab SULLIVAN Start: 10-03-2024 End: 10-03-2024 ambulatory Tab MURO Facility:[facility] Start: 09-30-2024 End: 09-30-2024 Office outpatient visit 25 minutes Faisal Simeon DO Work Phone: [facility] [facility] Comment on above: Neurogenic bladder ( Primary Dx); Paraplegia (HCC); Urinary retention; Gross hematuria Start: 09-30-2024 ambulatory FAISAL SIMEON Facility:[facility] Start: 09-29-2024 End: 09-29-2024 Departed Referred Tab SULLIVAN Start: 09-29-2024 End: 09-29-2024 ambulatory Tab MURO Facility:[facility] Start: 09-20-2024 End: 09-20-2024 Departed Referred Tab SULLIVAN Start: 09-20-2024 End: 09-20-2024 ambulatory Tab MURO Facility:[facility] Start: 08-22-2024 End: 08-22-2024 Office outpatient new 45 minutes Giuliano Shultz DO Work Phone: [facility] Rheumatology Comment on above: Osteoporosis, unspec ified osteoporosis type, unspecified pathological fracture presence (Primary Dx) Start: 08-22-2024 End: 08-22-2024 ambulatory UNKNOWN PROVIDER Facility:[facility] Start: 08-12-2024 End: 08-12-2024 Telephone encounter Angelica Anne RN [facility] Rheumatology (Arthritis) Start: 08-01-2024 End: 08-01-2024 Office outpatient visit 25 minutes Sci Fellow [facility] PM&R Comment on above: Paraplegia (HCC) (Pr imary Dx); Neuropathic pain; Neurogenic bowel; Reflex neurogenic bladder Start: 08-01-2024 End: 08-01-2024 ambulatory UNKNOWN PROVIDER Facility:[facility] Start: 07-27-2024 End: 07-27-2024 Telephone encounter Angelica Anne RN [facility] Rheumatology (Arthritis) Start: 07-13-2024 End: 07-13-2024 Telephone encounter Angelica Anne RN [facility] Rheumatology (Arthritis) Start: 07-10-2024 End: 07-10-2024 ambulatory UNKNOWN PROVIDER Facility:[facility] Start: 07-10-2024 End: 07-10-2024 Subsequent hospital visit by physician Mh Ip/Op Mri 2 [facility] Radiology Comment on above: Sacral insufficiency fracture, initial encounter Start: 07-04-2024 End: 07-04-2024 ambulatory Tab MURO Facility:[facility] Start: 07-01-2024 End: 07-01-2024 ambulatory OTIS MEJIA Facility:[facility] Start: 06-15-2024 End: 06-15-2024 Telephone encounter Carlos Gillette MD Work Phone: [facility] Pain Management - [facility] Comment on above: Reschedule Start: 06-15-2024 End: 06-15-2024 ambulatory Tab MURO Facility:[facility] Start: 06-14-2024 End: 06-14-2024 Telephone encounter Vladimir Asher [facility] Start: 06-13-2024 End: 06-13-2024 Office outpatient new 60 minutes Sci Fellow [facility] PM&R Comment on above: Paraplegia (HCC) (Pr imary Dx); Reflex neurogenic bladder; Neuropathic pain; Neurogenic bowel Start: 06-13-2024 End: 06-13-2024 Office outpatient visit 25 minutes Sci Fellow [facility] PM&R Comment on above: Paraplegia (HCC) (Pr imary Dx); Reflex neurogenic bladder; Neuropathic pain; Neurogenic bowel; Urinary retention Start: 06-13-2024 End: 06-16-2024 ambulatory UNKNOWN PROVIDER Facility:[facility] Start: 05-30-2024 ambulatory Tab MURO Faci lity:[facility] Start: 05-17-2024 End: 05-22-2024 Evaluation and management of inpatient Rodney R Guerrero DO Work Phone: [facility] DEM[facility] 6W Comment on above: Positive blood cultu res (Primary Dx); Lumbar stenosis with neurogenic claudication; Osteoarthritis, unspecified osteoarthritis type, unspecified site; Other intervertebral disc displacement, lumbar region; Pressure injury of coccygeal region, stage 3 (HCC) Start: 05-13-2024 End: 05-13-2024 Telephone encounter Sarita Benoit LPN [facility] Infectious Disease Comment on above: Labs Only Start: 05-11-2024 End: 05-15-2024 Office outpatient new 45 minutes Otis Mejia MD Work Phone: [facility] Orthopedic Spine Comment on above: Sacral insufficiency fracture, initial encounter (Primary Dx); Failed back surgical syndrome Start: 05-11-2024 End: 05-11-2024 Subsequent hospital visit by physician Jennifer Op Xray 2 [facility] Radiology Comment on above: Sacral insufficiency fracture, initial encounter Start: 05-11-2024 End: 05-15-2024 ambulatory UNKNOWN PROVIDER Facility:[facility] Start: 05-10-2024 End: 05-10-2024 Telephone encounter Delaney Nunn RN [facility] Line Comment on above: Update Start: 05-05-2024 End: 05-06-2024 Subsequent hospital visit by physician Dashawn Grimm MD Work Phone: [facility] Medical Surgical Unit MSU H5 Comment on above: Bladder calculus (Pr imary Dx); Bilateral ureteral calculi; Calculus of ureter Start: 05-04-2024 End: 05-06-2024 Telephone encounter Carlos Gillette MD Work Phone: [facility] Pain Management Comment on above: Reschedule Start: 04-15-2024 End: 04-15-2024 ambulatory Joe Hammer APRN - PROPOSAL ENGINEER Work Phone: [facility] Urology Comment on above: Bilateral ureteral c alculi (Primary Dx); Bladder calculus Start: 04-15-2024 End: 04-25-2024 Telephone encounter Joe Hammer APRN - PROPOSAL ENGINEER Work Phone: [facility] Urology Comment on above: Surgery Scheduling Start: 04-14-2024 End: 04-20-2024 Evaluation and management of inpatient Ene Dickens MD Work Phone: [facility] Cardiac Progressive Care Unit PCU 2E Start: 04-06-2024 End: 04-28-2024 Telephone encounter Vaishali Placeway DO Work Phone: [facility] PM&R Start: 04-05-2024 End: 04-05-2024 ambulatory UNKNOWN PROVIDER Facility:[facility] Start: 04-05-2024 End: 04-05-2024 Subsequent hospital visit by physician Ip/Op Mri 1 [facility] Radiology Comment on above: Paraplegia (HCC); History of lumbar fusion Start: 02-10-2024 End: 02-11-2024 ambulatory UNKNOWN PROVIDER Facility:[facility] Start: 02-10-2024 End: 02-26-2024 Office outpatient new 45 minutes Vaishali Placeway DO Work Phone: [facility] PM&R Comment on above: Paraplegia (HCC) (Pr imary Dx); History of lumbar fusion Start: 02-10-2024 ambulatory UNKNOWN PROVIDER Facili ty:[facility] Start: 01-29-2024 End: 01-29-2024 Office outpatient visit 25 minutes Carlos Gillette MD Work Phone: [facility] Pain Management Comment on above: Injury of lumbar spi nal cord, sequela (HCC) (Primary Dx); Neuropathic pain Start: 01-15-2024 Registered Referred [facility] [place] [employer] Start: 01-07-2024 End: 01-07-2024 ambulatory [facility] Work Phone: Start: 01-07-2024 End: 01-07-2024 Departed Referred [facility] [employer] Start: 01-07-2024 Registered Referred [facility] [place] [employer] Start: 01-04-2024 End: 01-04-2024 ambulatory [facility] Work Phone: Start: 01-04-2024 End: 01-04-2024 Departed [facility] Start: 01-04-2024 Registered Referred [facility] Start: 12-31-2023 End: 12-31-2023 ambulatory [facility] Work Phone: Start: 12-31-2023 End: 12-31-2023 Departed Referred [facility] Start: 12-29-2023 End: 12-29-2023 Office outpatient new 45 minutes Carlos Gillette MD Work Phone: [facility] [employer] [facility] Pain Management Comment on above: Spinal cord injury, lumbar, without spinal bone injury, sequela (HCC) (Primary Dx); Neuropathic pain Start: 12-04-2023 End: 12-04-2023 ambulatory [facility] Work Phone: Start: 12-04-2023 End: 12-04-2023 Departed Referred [facility] Start: 10-25-2023 End: 10-25-2023 Departed Referred [facility] Start: 09-04-2023 Telephone encounter Carlos israel MD Work Phone: [place] [employer] [facility] Pain Management Comment on above: Referral Start: 08-19-2023 Telephone encounter Carlos israel MD Work Phone: [facility] [employer] [facility] Management Comment on above: Referral (Confirm Re ceipt of Referral for LUMBER BEARER Appt Scheduling) Start: 08-10-2023 Registered Referred [facility] Start: 08-07-2023 Registered Referred [facility] Start: 08-06-2023 Telephone encounter Carlos israel MD Work Phone: [facility] [employer] [facility] Management Comment on above: new patient appointm ent Start: 07-31-2023 End: 07-31-2023 ambulatory [facility] Work Phone: Start: 07-31-2023 End: 07-31-2023 Departed Referred [facility] Start: 06-29-2023 End: 06-29-2023 Departed Referred [facility] Start: 06-01-2023 End: 06-01-2023 ambulatory [facility] Work Phone: Start: 06-01-2023 End: 06-01-2023 Departed Referred [facility] Start: 05-23-2023 End: 05-23-2023 Emergency department patient visit Colt Klein DO Work Phone: [facility] ED Comment on above: Urinary tract infect ion associated with indwelling urethral catheter, initial encounter (HCC) (Primary Dx) Start: 05-04-2023 End: 05-04-2023 ambulatory [facility] Work Phone: Start: 05-04-2023 End: 05-04-2023 Departed Referred [facility] Start: 05-04-2023 Registered Referred [facility] Start: 03-25-2023 End: 03-25-2023 ambulatory [facility] Work Phone: Start: 03-25-2023 End: 03-25-2023 Departed Referred [facility] Start: 04-21-2022 ambulatory Cindi Cuellar PA-C Work Phone: [facility] [place] Start: 02-14-2022 End: 02-14-2022 Subsequent hospital visit by physician Mri 2 [facility] (I-Stat/1.5t) [facility] Comment on above: abscess Start: 06-11-2021 AUDIT Byron Whitlock DO Work Phone: EF-Hcxpvzcecpmjlbws-Dg ghanshyam FRANCISCOI Work Phone: Start: 10-24-2020 End: 10-25-2020 Patient encounter procedure BROWNSilas LOPEZEN [facility] Start: 10-24-2020 End: 10-27-2020 Patient encounter procedure AMBROSIO MONROY [facility] Start: 10-24-2020 End: 10-25-2020 Subsequent hospital visit by physician Opal Vigil Work Phone: [facility] Tele Comment on above: Muscle spasm (Primar y Dx); Diabetes mellitus without complication (HCC) Start: 06-14-2018 Patient encounter Meliton Blas [facility] Start: 06-11-2018 End: 06-12-2018 Patient encounter JUAN MIGUEL ANN Facility:[id number] Start: 04-29-2018 Patient encounter Ambrosio Monroy [facility] Start: 08-05-2017 End: 08-06-2017 Ambulatory OPAL VIGIL Facility:[facility] Start: 08-03-2017 Ambulatory OPAL VIGIL Facility:[facility] Start: 05-27-2017 End: 05-28-2017 Ambulatory ELLIOT TORREZ Facility:[facility] Procedures Date Procedure Procedure Detail Performing [...] metabolic panel calcium total Mary Alice Aguilera RN DIABETES - PROPOSAL ENGINEER Work Phone: Start: 04-26-2025 Glucose quantitative blood [...] Glucose quantitative blood xcpt reagent strip Kerwin Divide DO Work Phone: Start: 04-24-2025 Glucose quantitative blood xcpt reagent strip Kerwin Divide DO Work Phone: Start: 04-24-2025 Glucose quantitative [...] 04-24-2025 Basic metabolic panel calcium total Kerwin Divide DO Work Phone: Start: 04-24-2025 Drug screen quantitative vancomycin Alberto Boogie [employer] Work Phone: Start: 04-23-2025 Glucose quantitative blood xcpt reagent strip Kerwin Divide DO Work Phone: Start: 04-23-2025 Glucose quantitative blood xcpt reagent strip Kerwin Radhames DO Work Phone: Start: 04-23-2025 Glucose quantitative blood xcpt reagent strip Kerwin Divide DO Work Phone: Start: 04-23-2025 Glucose quantitative blood xcpt reagent strip Kerwin Divide DO Work Phone: Start: 04-23-2025 Basic metabolic panel calcium total Kerwin Divide DO Work Phone: Start: 04-22-2025 Glucose quantitative blood xcpt reagent strip Kerwin Divide DO Work Phone: Start: 04-22-2025 Glucose quantitative blood xcpt reagent strip Kerwin Divide DO Work Phone: Start: 04-22-2025 Glucose quantitative blood xcpt reagent strip Kerwin Radhames DO Work Phone: Start: 04-22-2025 Glucose quantitative blood xcpt reagent strip Kerwin Divide DO Work Phone: Start: 04-22-2025 Drug screen quantitative vancomycin Alberto Boogie LUM[employer]ARER Work Phone: Start: 04-22-2025 Ct pelvis w/contrast [...] Start: 05-18-2024 Basic metabolic panel calcium total Teodorosuribalaji Khanh Concepcion MD Work Phone: Start: 05-18-2024 [...] sacrum & coccyx minimum 2 views Berna Ekers PA-C Work Phone: Start: 05-06-2024 Glucose quantitative [...] [Presence] in Respiratory specimen by Rapid immunoassay Otisjuan Mckenzie DO Work Phone: Start: 04-20-2024 Glucose quantitative blood xcpt reagent strip Otis Voconnie DO Work Phone: Start: 04-20-2024 IR CVC PICC PLACEMENT Otis Hoangconnie DO Work Phone: Start: 04-20-2024 Glucose quantitative blood xcpt reagent strip Otis Voconnie DO Work Phone: Start: 04-20-2024 Comprehensive metabolic [...] 04-16-2024 Bacteria identified in Blood by Culture Kialash Moyer MD Work Phone: Start: 04-16-2024 Comprehensive metabolic panel Orquidea Marti MD Work Phone: Start: 04-16-2024 Drug screen quantitative vancomycin Orquidea Marti MD Work Phone: Start: 04-16-2024 Manual Differential panel - Blood Brad Mujica RN DIABETES - PROPOSAL ENGINEER Work Phone: Start: 04-15-2024 Glucose quantitative blood [...] Manual Differential panel - Blood Brad Mujica RN DIABETES - [facility] Work Phone: Start: 04-15-2024 Drug screen quantitative vancomycin Orquidea Marti MD Work Phone: Start: 04-15-2024 Culture bacterial quanttative colony count urine Brad Mujica RN DIABETES - [facility] Work Phone: Start: 04-14-2024 End: 04-14-2024 [...] [Type] in Blood by Confirmatory method Ene Dickens MD Work Phone: Start: 04-14-2024 Blood typing serologic rh (d) Ene Dickens MD Work Phone: Start: 04-14-2024 End: 04-14-2024 Assay of lipase Ene Dickens MD Work Phone: Start: 04-14-2024 Ct abdomen & pelvis w/o contrast material Ene Dickens MD Work Phone: Start: 04-14-2024 Blood gases any combination ph pco2 po2 co2 hco3 Ene Dickens MD Work Phone: Start: 04-14-2024 Radiologic exam chest single view Ene Dickens MD Work Phone: Start: 04-14-2024 Bacteria identified in Blood by Culture Ene Dickens MD Work Phone: Start: 04-14-2024 HC CUL TYP ID BLD PTHGN 6+ TRGT Ene Dickens MD Work Phone: Start: 04-14-2024 Ecg routine ecg w/least 12 lds trcg only w/o i&r Ene Dickens MD Work Phone: Start: 04-14-2024 Comprehensive metabolic panel Ene Dickens MD Work Phone: Start: 04-14-2024 Manual Differential panel - Blood Ene Dickens MD Work Phone: Start: 04-05-2024 Mri [...] panel - Serum or Plasma Joe Hammer RN DIABETES - PROPOSAL ENGINEER Work Phone: Start: 09-06-2021 Colonoscopy Faisal Simeon DO Work Phone: Start: 10-25-2020 Gluc bld gluc mntr dev cleared fda spec home use Unknown Provider Result Start: 10-25-2020 Gluc bld gluc mntr dev cleared fda spec home use Unknown Provider Result Start: 10-25-2020 Basic metabolic panel calcium total Orlando Franco Sedar Work Phone: Start: 10-25-2020 Blood count complete auto&auto difrntl wbc Orlando Michelle Sedar Work Phone: Start: 10-25-2020 Hemoglobin glycosylated a1c Orlando Michelle Sedar Work Phone: Start: 10-24-2020 Gluc bld [...] vaccine (adult) (1 - 1-dose 75+ series) [facility] Start: 09-06-2031 Screening for malignant neoplasm of colon [facility] Start: 01-23-2027 Lipid panel Cholesterol [facility] Start: 04-27-2026 Diabetes: Estimated Glomerular Filtration Rate for [facility] Health Diabetes: Estimated Glomerular Filtration Rate for [facility] Start: 04-21-2026 Hemoglobin A1c measurement Diabetes: Hemoglobin A1C [facility] Start: 02-16-2026 Screening for malignant neoplasm of lung Lung Cancer Screening [facility] Start: 06-05-2025 Influenza vaccination [facility] Start: 06-02-2025 End: 06-02-2025 Patient encounter procedure 06/02/2025 11:00 AM EDT Office Visit [facility] Infectious Disease - [place] [address] [place] [address] Savage Alvarez MD [address] [place], [place] [id number] [facility] - [place] Start: 05-22-2025 Diabetes: Estimated Glomerular Filtration Rate for [facility] Diabetes: Estimated Glomerular Filtration Rate for [facility] Start: 05-06-2025 Diabetes: Estimated Glomerular Filtration Rate for [facility] Diabetes: Estimated Glomerular Filtration Rate for [facility] Start: 04-27-2025 Diabetes: Estimated Glomerular Filtration Rate for [facility] Diabetes: Estimated Glomerular Filtration Rate for [facility] Start: 04-20-2025 Diabetes: Estimated Glomerular Filtration Rate for [facility] Diabetes: Estimated Glomerular Filtration Rate for [facility] Start: 04-20-2025 [facility] Start: 04-15-2025 Diabetes: Estimated Glomerular Filtration Rate for [facility] Diabetes: Estimated Glomerular Filtration Rate for [facility] Start: 04-15-2025 Hemoglobin A1c measurement [facility] Start: 04-04-2025 Hemoglobin A1c measurement Hemoglobin A1C [facility] Start: 03-20-2025 End: 03-20-2025 Admission to same day surgery center 03/20/2025 10:00 AM EDT - 03/20/2025 11:30 AM EDT Surgery [facility] [address] [place] [address] Anmol Herbert MD [address] [place] [address] CYSTOSCOPY, RETROPYELOGRAM [facility] Comment on above: CYSTOSCOPY, RETROPYELOGRAM Start: 03-20-2025 End: 03-20-2025 Cysto bladder w/ureteral catheterization [facility] Start: 03-20-2025 End: 03-20-2025 Cysto w/insert ureteral stent [facility] Start: 03-20-2025 End: 03-20-2025 Cysto w/simple removal stone & stent [facility] Start: 03-20-2025 Subsequent hospital visit by physician 03/20/2025 10:00 AM EDT Hospital Encounter [facility] [address] [place] [address] Anmol Herbert MD [address] [place] [address] Other hydronephrosis [N13.39] [facility] Comment on above: Other hydronephrosis [N13.39] Start: 03-14-2025 End: 03-14-2025 Patient encounter procedure 03/14/2025 1:50 PM EDT Office Visit Plastic Surgery [address] [place] [address] Milad Goodson MD [address] [address] [place] sacrum & left ischium Plastic Surgery Comment on above: [place] sacrum & left ischium Start: 01-31-2025 End: 05-02-2025 C reactive protein [Mass/volume] in Serum or Plasma C-REACTIVE PROTEIN Lab Routine Chronic osteomyelitis (HCC) Expected: 01/31/2025, Expires: 05/02/2025 [facility] Comment on above: Expected: 01/31/2025, Expires: Start: 01-31-2025 End: 05-02-2025 Erythrocyte sedimentation rate SEDIMENTATION RATE, WESTERGREN Lab Routine Chronic osteomyelitis (HCC) Expected: 01/31/2025, Expires: 05/02/2025 [facility] Work Phone: Comment on above: Expected: 01/31/2025, Expires: Start: 01-31-2025 End: 05-02-2025 Prealbumin [Mass/volume] in Serum or Plasma PREALBUMIN Lab Routine Chronic osteomyelitis (HCC) Expected: 01/31/2025, Expires: 05/02/2025 [facility] Comment on above: Expected: 01/31/2025, Expires: Start: 11-08-2024 End: 11-08-2024 Telemedicine consultation with patient 11/08/2024 1:30 PM EST [facility] [place] [facility] [address] [place] [address] [place] [address] [place] [address] [facility] [place] [facility] Start: 11-05-2024 Welcome to Medicare Visit (G0402) Welcome to Medicare Visit (G0402) [facility] Start: 10-16-2024 Hemoglobin A1c measurement HbA1C [facility] Start: 10-11-2024 End: 10-11-2025 MR Pelvis WO and W contrast IV MR pelvis w and wo contrast Imaging Routine Pressure ulcer of sacral region, unspecified stage Expected: 10/11/2024, Expires: 10/11/2025 [employer] Work Phone: Comment on above: Expected: 10/11/2024, Expires: Start: 10-05-2024 Medicare Advantage Annual Wellness Visit Medicare Advantage Annual Wellness Visit [facility] Start: 09-30-2024 End: 09-30-2025 CT Abdomen and Pelvis WO contrast CT RENAL STONE Imaging Routine Gross hematuria Expected: 09/30/2024, Expires: 09/30/2025 [employer] [employer] Work Phone: Comment on above: Expected: 09/30/2024, Expires: Start: 09-30-2024 End: 09-30-2024 Patient encounter procedure 09/30/2024 1:00 PM EST Procedure Visit [facility] [address] [place] [address] Faisal Simeon DO [address] [place] [address] [facility] Start: 09-09-2024 End: 09-09-2024 Patient encounter procedure 09/09/2024 2:00 PM EST Procedure Visit [facility]R [address] [place] [address] Faisal Simeon DO [address] [place] [address] [facility]R Start: 08-22-2024 End: 08-22-2024 Telemedicine consultation with patient 08/22/2024 8:20 AM EST Telemedicine [facility] Rheumatology [address] [place] [address] Giuliano Shultz DO [address] [place] [address] [facility] Start: 2024 End: 2024 Patient encounter procedure 2024 1:30 PM EDT Office Visit [facility] [address] [place] [id number] Carlos Gillette MD [address] [facility] [place] [id number] [facility] Start: 08-01-2024 End: 08-01-2024 Telemedicine consultation with patient 08/01/2024 9:00 AM EDT Telemedicine [facility] PM[facility]R [address] [place] [address] [facility] Start: 07-10-2024 End: 07-10-2024 Patient encounter procedure [facility] Radiology Start: 07-05-2024 Influenza vaccination Influenza Vaccine (#1) [facility] Start: 07-01-2024 End: 07-01-2024 Professional / ancillary services management 07/01/2024 11:00 AM EDT Ancillary Procedure [facility] [address] [place] [address] [facility] Start: 06-14-2024 End: 06-14-2024 Patient encounter procedure 06/14/2024 8:30 AM EDT Office Visit [facility] [address] [place] [id number] Carlos Gillette MD [address] [place] [address] [facility] Start: 06-13-2024 End: 06-13-2024 Patient encounter procedure 06/13/2024 11:00 AM EDT Office Visit [facility] [address] [place] [address] [facility] Start: 06-13-2024 End: 06-13-2024 Professional / ancillary services management 06/13/2024 9:00 AM EDT Ancillary Procedure [facility] [place] [facility] [address] [place] [address] [facility] Start: 06-05-2024 COVID-19 Vaccine ( season) COVID-19 Vaccine ( season) [facility] Start: 06-05-2024 COVID-19 Vaccine ( season) COVID-19 Vaccine ( season) [facility] Start: 06-05-2024 Influenza vaccination [facility] [employer] Start: 06-05-2024 [facility] [employer] Start: 05-11-2024 End: 05-11-2025 DXA Skeletal system Views for bone density BD BONE DENSITY SURVEY Imaging Routine Sacral insufficiency fracture, initial encounter Expected: 05/11/2024, Expires: 05/11/2025 [employer] Work Phone: Comment on above: Expected: 05/11/2024, Expires: Start: 05-11-2024 End: 05-11-2025 MR Cervical spine WO contrast MR C-SPINE W/O Imaging Routine Sacral insufficiency fracture, initial encounter Expected: 05/11/2024, Expires: 05/11/2025 [facility] Comment on above: Expected: 05/11/2024, Expires: Start: 05-11-2024 End: 05-11-2025 MR Thoracic spine WO contrast MR T-SPINE W/O Imaging Routine Sacral insufficiency fracture, initial encounter Expected: 05/11/2024, Expires: 05/11/2025 [facility] Comment on above: Expected: 05/11/2024, Expires: Start: 05-11-2024 End: 05-11-2024 Patient encounter procedure [facility] Spine Comment on above: Sacral insufficiency fracture, initial e ncounter (Primary Dx) Start: 05-06-2024 End: 04-20-2025 Bacteria identified in Blood by Culture [facility] [employer] Work Phone: Start: 05-05-2024 End: 05-05-2024 Admission to same day surgery center 05/05/2024 12:30 PM EDT - 05/05/2024 2:30 PM EDT Surgery [facility] MA[facility] OR [address] [place] [address] Dashawn Grimm MD [address] [place] [address] CYSTOSCOPY [18453 (CPT )] [facility] Comment on above: CYSTOSCOPY [39446 (CPT )] Start: 05-05-2024 End: 05-05-2024 ambulatory [facility] Start: 05-05-2024 End: 05-05-2024 Anesthesia consultation 05/05/2024 12:30 PM EDT Anesthesia Event [facility] MA[facility] OR [address] [place] [phone] Emil Waleska, RN DIABETES - PROPOSAL ENGINEER [address] [place] [address] [facility] Start: 05-05-2024 End: 05-05-2024 Cysto w/insert ureteral stent [facility] Operating [facility] Start: 05-05-2024 End: 05-05-2024 Cysto w/ureteroscopy w/lithotripsy [facility] Operating [facility] Start: 05-05-2024 End: 05-05-2024 Cystourethroscopy [facility] Start: 05-05-2024 End: 05-05-2024 Litholapaxy comp/lg > 2.5 cm [facility] Start: 05-05-2024 Subsequent hospital visit by physician 05/05/2024 12:30 PM EDT Hospital Encounter [facility] [address] [place] [phone] Dashawn Grimm MD [address] [address] [facility] OR Start: 04-27-2024 End: 04-27-2024 Admission to establishment 04/27/2024 2:00 PM EDT Pre-Admission Testing [facility] Pre-Admit Testing [address] [place] [address] Dashawn Grimm MD [address] [address] [facility] Pre-Admit Testing Start: 04-27-2024 End: 04-27-2024 ambulatory [facility] Pre-Admit Testin g Start: 04-21-2024 End: 04-21-2024 Patient encounter procedure 04/21/2024 8:45 AM EDT Office Visit [facility] [address] [place] [phone] Carlos Gillette MD [address] [place] [id number] [facility] Start: 04-05-2024 End: 04-05-2024 Patient encounter procedure 04/05/2024 2:30 PM EDT Appointment [facility] [address] [place], [place] [id number] [facility] Start: 04-04-2024 Welcome to Medicare Visit (G0402) Welcome to Medicare Visit (G0402) [facility] Start: 03-30-2024 End: 03-30-2024 Patient encounter procedure 03/30/2024 4:00 PM EDT Office Visit [facility] [address] [place] [phone] Carlos Gillette MD [address] [place], [place] [phone] [facility] Start: 02-10-2024 End: 02-09-2025 MR Lumbar spine WO and W contrast IV MR L-SPINE W/+W/O Imaging Routine Paraplegia (HCC) History of lumbar fusion Expected: 02/10/2024, Expires: 02/09/2025 [facility] Work Phone: Comment on above: Expected: 02/10/2024, Expires: Start: 12-29-2023 End: 12-29-2023 Patient encounter procedure 12/29/2023 2:45 PM EDT Office Visit [facility] [address] [place] [phone] Carlos Gillette MD [address] [facility] [place] [place] [phone] [facility] Start: 06-05-2023 COVID-19 Vaccine () COVID-19 Vaccine ( season) [facility] Start: 06-05-2023 Influenza vaccination Influenza Vaccine (#1) [facility] Start: 06-05-2023 [facility] Start: 01-23-2023 Hemoglobin A1c measurement Diabetes: Hemoglobin A1C [facility] Start: 01-23-2023 Hepatitis B surface antibody level LDL CHOLESTEROL [facility] Start: 01-23-2023 Lipid panel Lipid Panel [facility] Start: 12-27-2022 Diabetes: Urine Albumin-Creatinine Ratio for [facility] Diabetes: Urine Albumin-Creatinine Ratio for Kidney Health [facility] Start: 07-25-2022 Hemoglobin A1c/Hemoglobin.total in Blood HBA1C [facility] Start: 06-05-2022 Influenza vaccination [facility] Start: 10-25-2021 HbA1c (Bld) [Mass fraction] A1C test (Diabetic or Prediabetic) [place], [place] Start: 10-25-2021 Hemoglobin A1c measurement Diabetes: Hemoglobin A1C [facility] Start: 2021 Hepatitis B (HBV) Vaccine (optional start 60+ years) Hepatitis B (HBV) Vaccine (optional start 60+ years) [facility] Start: 2021 Hepatitis B Vaccines (1 of 3 - Risk 3-dose series) Hepatitis B Vaccines (1 of 3 - Risk 3-dose series) [facility] Start: 2021 RSV Immunization aged 60 or older (1 - 1-dose 60+ series) RSV Immunization aged 60 or older (1 - 1-dose 60+ series) [facility] Start: 2021 RSV Immunization for Adults (1 - Risk 60-74 years 1-dose series) RSV Immunization for Adults (1 - Risk 60-74 years 1-dose series) [facility] Start: 2021 RSV Vaccine (1 - Risk 60-74 years 1-dose series) RSV Vaccine (1 - Risk 60-74 years 1-dose series) [facility] Start: 2021 RSV vaccine (optional 60+ years) RSV vaccine (optional 60+ years) [facility] Start: 2021 [facility] Start: 11-20-2020 End: 11-20-2020 Office Visit 11/20/2020 Office Visit Opal Tamez MD [address] [address] [facility] Start: 11-06-2020 End: 11-06-2020 Office Visit [facility] Start: 06-05-2020 Influenza vaccination Flu vaccine (#1) [place], [place] Start: 01-05-2018 Lipid panel Lipid screen [place] Start: 2016 PROSTATE CANCER SCREENING DISCUSSION PROSTATE CANCER SCREENING DISCUSSION [facility] Start: 2016 Prostate specific antigen measurement Prostate Cancer Screening Discussion [facility] Start: 2011 Pneumococcal vaccination Pneumococcal Vaccine(s) (50+ yrs) (1 of 1 - PCV) [facility] Start: 2011 Screening for malignant neoplasm of colon Colon cancer screen colonoscopy [place], [place] Start: 2011 Screening for malignant neoplasm of lung Lung Cancer Screening [facility] Start: 2011 Shingles (RZV) Vaccine (1 of 2) Shingles (RZV) Vaccine (1 of 2) [facility] Start: 2011 Shingles Vaccine (1 of 2) Shingles Vaccine (1 of 2) [place] Start: 2011 SHINGRIX VACCINE (1 of 2) SHINGRIX VACCINE (1 of 2) [facility] Start: 2011 Zoster Vaccines (1 of 2) Zoster Vaccines (1 of 2) [facility] Start: 2011 [facility] Start: 2006 COLOGUARD (FIT-DNA) COLOGUARD (FIT-DNA) [facility] Start: 2006 Colonoscopy COLONOSCOPY [facility] Start: 2006 COLORECTAL CANCER SCREENING COLORECTAL CANCER SCREENING [facility] Start: [address] COLONOGRAPHY [facility] Start: 2006 FECAL OCCULT BLOOD FECAL OCCULT BLOOD [facility] Start: 2006 Prostate specific antigen measurement Prostate Cancer Screening Discussion [facility] Start: 2006 Screening for malignant neoplasm of colon [facility] Start: 2006 SIGMOIDOSCOPY SIGMOIDOSCOPY [facility] Start: 1996 Lipid panel Cholesterol [facility] Start: 1980 DTaP/Tdap/Td vaccine (1 - Tdap) DTaP/Tdap/Td vaccine (1 - Tdap) [place] Start: 1980 DTaP/Tdap/Td Vaccines (1 - Tdap) DTaP/Tdap/Td Vaccines (1 - Tdap) [facility] Start: 1980 Hepatitis A (HAV) Vaccine (optional start 19+ years) Hepatitis A (HAV) Vaccine (optional start 19+ years) [facility] Start: 1980 Hepatitis B vaccine (1 of 3 - Risk 3-dose series) Hepatitis B vaccine (1 of 3 - Risk 3-dose series) [place] Start: 1980 Pneumococcal Vaccine: 50+ (1 of 2 - PCV) Pneumococcal Vaccine: 50+ (1 of 2 - PCV) [facility] Start: 1980 Pneumococcal Vaccine: 50+ Years (1 of 2 - PCV) Pneumococcal Vaccine: 50+ Years (1 of 2 - PCV) [facility] Start: 1980 Urine microalbumin profile [facility] Start: 1980 [facility] Start: 1979 ANNUAL PCP TEAM CHRONIC DISEASE VISIT ANNUAL PCP TEAM CHRONIC DISEASE VISIT [facility] Start: 1979 Anxiety Screening Anxiety Screening [facility] Start: 1979 Depression Screening Depression Screening [facility] Start: 1979 Diabetes: Urine Albumin-Creatinine Ratio for Kidney Health Diabetes: Urine Albumin-Creatinine Ratio for Kidney Health [facility] Start: 1979 Diabetic microalbuminuria test Diabetic microalbuminuria test [place] Start: 1979 Hepatitis C screening [facility] Start: 1979 Tetanus + diphtheria + acellular pertussis vaccine (product) Tdap Booster [facility] Start: 1979 [facility] Start: 1977 ONE PNEUMOVAX PRIOR TO AGE 65 ONE PNEUMOVAX PRIOR TO AGE 65 [facility] Start: 1976 HIV screening [facility] Start: 1973 Adult depression screening assessment DEPRESSION SCREENING [facility] Start: 1973 Depression Monitoring Depression Monitoring [facility] Start: 1973 [facility] Start: 1971 3 comp foot exam completed DIABETIC FOOT EXAM [facility] Start: 1971 Diabetic foot examination [facility] Start: 1971 Diabetic retinal exam Diabetic retinal exam [place], [place] Start: 1971 Glaucoma screening [facility] Start: 1971 Hepatitis B screening URINE ALBUMIN:CREATININE RATIO [facility] Start: 1971 Hepatitis C antibody, confirmatory test DILATED RETINAL EXAM [facility] Start: 1971 Preventive dental service [facility] Start: 1967 PNEUMOCOCCAL (1 - PCV) PNEUMOCOCCAL (1 - PCV) [facility] Start: 1967 Pneumococcal 0-64 years Vaccine (1 of 1 - PPSV23) Pneumococcal 0-64 years Vaccine (1 of 1 - PPSV23) [place] Start: 1967 Pneumococcal Vaccine: Pediatrics (0 to 5 Years) and At-Risk Patients (6 to 64 Years) (1 - PCV) Pneumococcal Vaccine: Pediatrics (0 to 5 Years) and At-Risk Patients (6 to 64 Years) (1 - PCV) [facility] Start: 1967 Pneumococcal Vaccine: Pediatrics (0 to 5 Years) and At-Risk Patients (6 to 64 Years) (1 of 2 - PCV) Pneumococcal Vaccine: Pediatrics (0 to 5 Years) and At-Risk Patients (6 to 64 Years) (1 of 2 - PCV) [facility] Start: 1967 [facility] Start: 1966 COVID-19 VACCINE (#1) COVID-19 VACCINE (#1) [facility] Start: 1962 MMR Vaccines (1 of 1 - Standard series) MMR Vaccines (1 of 1 - Standard series) [facility] Start: 1962 [facility] Start: 02-01-1962 COVID-19 VACCINE (#1) COVID-19 VACCINE (#1) [facility] Start: 1961 Hepatitis C screening Hepatitis C screen [place], [place] Start: 1961 HIV screening [facility] Start: 1961 Lipid panel [facility] Start: 1961 Medicare Annual Wellness (AWV) Medicare Annual Wellness (AWV) [facility] Start: 1961 Screening for malignant neoplasm of colon [facility] Start: 1961 [facility] End: 08-22-2025 25 hydroxy includes fractions if performed VITAMIN D, 25-HYDROXY Lab Routine Osteoporosis, unspecified osteoporosis type, unspecified pathological fracture presence 1 Occurrences starting 08/22/2024 until 08[facility]22[facility] on above: 1 Occurrences starting 08/22/2024 until 08/22/2025 Aerobic and Anaerobi c Culture with Stain [employer] Work Phone: Comment on above: Release Upon Ordering for 1 Occurrences starting 05/05/2024 Aerobic and Anaerobi c Culture with Stain [employer] Work Phone: Comment on above: Release Upon Ordering for 1 Occurrences starting 04/24/2025 End: 08-22-2025 Assay of parathormone PARATHYROID HORMONE INTACT Lab Routine Osteoporosis, unspecified osteoporosis type, unspecified pathological fracture presence 1 Occurrences starting 08/22/2024 until 08/22/2025 [facility] Comment on above: 1 Occurrences starting 08/22/2024 until 08/22/2025 Bacteria identified in Blood by Culture [employer] Work Phone: End: 04-14-2024 Bacteria identified in Lower respiratory specimen by Aerobe culture [facility] Bacteria identified in Unspecified specimen by Aerobe culture Culture, Aerobic Bacteria with Gram Stain Microbiology Routine Calculus of ureter 05/05/2024 4:14 PM EDT [facility] End: 05-05-2024 Bacteria identified in Unspecified specimen by Anaerobe culture [facility] [employer] Comment on above: Once for 1 Occurrences starting 05/05/20 24 until 05/05/2024 Bacteria identified in Unspecified specimen by Anaerobe culture [facility] End: 05-23-2023 Bacteria identified in Urine by Culture [employer] Work Phone: Comment on above: Once (Lab) for 1 Occurrences starting until 05/23/2023 Basic metabolic 2000 panel Basic Metabolic Panel Lab Routine Daily until discontinued starting 10/25/2020, 1 completed [facility] [place] [place] Comment on above: Daily until discontinued starting 2020, 1 completed End: 08-22-2025 Basic metabolic 2000 panel - Serum or Plasma BASIC METABOLIC PANEL Lab Routine Osteoporosis, unspecified osteoporosis type, unspecified pathological fracture presence 1 Occurrences starting 08/22/2024 until 08/22/2025 [employer] Work Phone: Comment on above: 1 Occurrences starting 08/22/2024 until 08/22/2025 Calculi Analysis(Stone) [facility] Comment on above: Release Upon Ordering for 1 Occurrences starting 05/05/2024 CBC Auto Differential CBC Auto D ifferential Lab Routine Daily until discontinued starting 10/25/2020, 1 completed [employer] [facility] Comment on above: Daily until discontinued starting 2020, 1 completed End: 04-14-2024 Fungus identified in Unspecified specimen by Culture [employer] Work Phone: Fungus identified in Unspecified specimen by Culture Fungal Culture Microbiology Routine Calculus of ureter 05/05/2024 4:14 PM EDT [facility] End: 04-14-2024 Lactic acid with reflex [facility] [employer] Work Phone: Oxygen therapy [[facility]ini [facility] Data Set] Initiate Oxygen Therapy Protocol Respiratory Care Routine Daily until discontinued starting 10/24/2020 [employer] [facility] Comment on above: Daily until discontinued starting 2020 POCT glucose [employer] [facility] [employer] Comment on above: 4X Daily (AC & HS) until discontinued st arting 10/25/2020 As Needed until disc ontinued starting 10/24/2020 End: 08-22-2025 Protein electrophoretic fractj&quantj serum ELECTROPHORESIS, SERUM PROTEIN Lab Routine Osteoporosis, unspecified osteoporosis type, unspecified pathological fracture presence 1 Occurrences starting 08/22/2024 until 08/22/2025 [facility] Comment on above: 1 Occurrences starting 08/22/2024 until 08/22/2025 Spirometry panel Incentive negin metry RT Respiratory Care Routine Every 2hr while awake until discontinued starting 10/24/2020 [employer] Comment on above: Every 2hr while awake until discontinued starting 10/24/2020 End: 04-14-2024 Urinalysis complete panel - Urine [employer] Work Phone: Immunizations Immunization Date Immunization Notes Care Provider Nessa peñaloza 04-15-2024 Hemoglobin A1C [facility] 04-04-2024 Hemoglobin A1C M[facility] Payers Date Payer Category Payer Medicare (Managed Care) 1.2. [id number] 2024 Medicare HMO JOISOHENRIQUE BEYER EOHIO MEDICARE [id number] 2024 Medicare [id number] 2024 Self-pay [id number] 2024 Medicare [id number]. [id number] 2024 Medicare FFS MEDICARE [id number] 2024 Unknown [id number] 2024 Unknown [id number] 2022 Medicaid [id number]. [id number] 2021 Medicaid [facility] MEDICAID [facility] COMM[employer] PLAN MEDICAID [id number] 2021-Present [phone] [address] [place] [address] Medicaid [id number]. [id number] 2016 Unknown [id number] 2008 Unknown 1961 Unknown [id number] 2.16.840.1.220737.3.579.2. 182 1961 Unknown [id number] 2.16.840.1.364308.3.579.2. 182 1961 Unknown [id number] 2.16.840.1.415558.3.579.2. 732 1961 Unknown [id number] 2.16.840.1.679863.3.579.2. 732 1961 Unknown [id number] 2.16.840.1.810155.3.579.2. 732 1961 Unknown [id number] 2.16.840.1.143508.3.579.2. 732 1961 Unknown [id number] 2.16.840.1.560073.3.579.2. 732 1961 Unknown [id number] 2.16.840.1.456419.3.579.2. 732 1961 Unknown [id number] 2.16.840.1.774051.3.579.2. 732 1961 Unknown [id number] 2.16.840.1.753198.3.579.2. 732 1961 Unknown [id number] 2.16.840.1.095668.3.579.2. 732 1961 Unknown [id number] 2.16.840.1.928656.3.579.2. 732 1961 Unknown [id number] 2.16.840.1.590170.3.579.2. 732 1961 Unknown [id number] 2.16.840.1.667118.3.579.2. 732 Unknown [id number] 2.16.840.1.276622.3.579.2. 462 Unknown [id number] 2.16.840.1.097870.3.579.2. 462 Unknown [id number] 2.16.840.1.400535.3.579.2. 462 Unknown [id number] 2.16840.1.712414.3.579.2. 462 Unknown [id number] 2.16840.1.433571.3.579.2. 462 Unknown [id number] 2.840.1.538622.3.579.2. 462 Unknown [id number] 2.840.1.965346.3.579.2. 462 Unknown [id number] 2.840.1.124624.3.579.2. 462 Unknown [id number] 2.840.1.529307.3.579.2. 462 Unknown [id number] 2.840.1.907923.3.579.2. 462 Unknown [id number] 2.840.1.433629.3.579.2. 462 Unknown [id number] 2.840.1.177775.3.579.2. 462 Unknown [id number] 2.840.1.471379.3.579.2. 462 Unknown [id number] 2.840.1.726205.3.579.2. 462 Unknown [id number] 2.840.1.776081.3.579.2. 462 Unknown [id number] 2.840.1.542067.3.579.2. 462 Unknown [id number] 2.16840.1.046486.3.579.2. 462 Unknown [id number] 2.840.1.501941.3.579.2. 462 Unknown [id number] 2.840.1.964594.3.579.2. 462 Unknown [id number] 2..840.1.057123.3.579.2. 462 Unknown [id number] 2.840.1.752715.3.579.2. 462 Unknown [id number] 2.840.1.503544.3.579.2. 462 Social History Date Type Detail Facility Start: 10-05-1977 End: 04-27-2024 Tobacco smoking status NHIS Current every day smoker [facility] Start: 10-24-2020 End: 04-27-2024 Tobacco use and exposure Never used [place] Start: 10-24-2020 End: 04-24-2025 Alcohol intake Current non-drinker of alcohol (finding) [place] Start: 10-15-2020 History SDOH Food Worry 1 [place] Start: 10-15-2020 History SDOH Transport Med 2 [place] Start: 12-21-2016 Alcohol Comment occ [place] Start: 1960 Sex Assigned At Not on file [place] Start: 05-13-2023 End: 05-23-2023 Exposure to SARS-CoV-2 (event) Not sure [place] Start: 08-09-2013 End: 04-22-2025 Current every day smoker Current every day smoker [facility] Start: 10-05-1977 History of tobacco use Cigarette Smoker [facility] Start: 1960 Sex Assigned At Male [facility] Start: 01-27-2022 End: 02-06-2022 Exposure to SARS-CoV-2 (event) Unable to assess [facility] Start: 12-29-2023 End: 04-22-2025 Gender identity Not on file [facility] consumption unknown [facility] Has the [facility] or [employer] threatened to shut off services in your home in past 12Mo No [facility] How often to you hav e a drink containing alcohol? Never [facility] How many standard drinks containing alcohol do you have on a typical day? Patient does not drink [facility] (I/We) worried wheth er (my/our) food would run out before (I/we) got money to buy more. Never true [facility] Start: 05-05-2022 End: 11-27-2023 Sex Male (finding) [employer] Work Phone: Start: 11-29-2021 Gender identity Identifies as male gender (finding) [facility] Start: 10-23-2023 Sexual orientation Heterosexual (finding) [facility] Medical Equipment Procedure Code Equipment Code Equipment Origin al Text Equipment Identifier Dates Graft Infuse 20g a Medium Bovine Collagen Rhbmp-2 2x1in Bone Vial Absorbable - [id number] Start: 01-14-2022 Substitute [employer] Calcium Phosphate Collagen Bone Graft Putty Void - [id number] Start: 12-12-2021 Substitute [employer] 10cm Bone Graft Strip 12ml Spine - [id number] Start: 01-14-2022 Substitute [employer] 10cm Bone Graft Strip 12ml Spine - [id number] Start: 01-14-2022 Creo Thread 6.5 X [...] Uret 6fr 2 2cm Wo Gw - [id number] Start: 05-05-2024 Stent Uret 6fr 2 2cm [facility] - [id number] Start: 05-05-2024 Functional Status Date Assessment Result Facility 04-21-2025 Total score [AUDIT-C] 0 04/21/20 25 10:31 PM EDT Giovana Barnard RN [facility] 02-22-2025 Are you deaf, or do you have serious difficulty hearing No 02/22/2025 8:55 PM EDT Nahun Gunderson RN No [facility] 02-22-2025 Are you blind, or do you have serious difficulty seeing, even when wearing glasses No 02/22/2025 8:55 PM EDT Nahun Gunderson RN No [facility] 02-22-2025 Do you have serious difficulty walking or climbing stairs Yes 02/22/2025 8:55 PM EDT Nahun Gunderson RN Yes [facility] 02-22-2025 Do you have difficul ty dressing or bathing Yes 02/22/2025 8:55 PM EDT Nahun Gunderson RN Yes [facility] 02-22-2025 Because of a physica l, mental, or emotional condition, do you have difficulty doing errands alone such as visiting a physician's office or shopping Yes 02/22/2025 8:55 PM EDT Nahun Gunderson RN Yes [facility] 01-24-2022 Are you deaf, or do you have serious difficulty hearing No 01/24/2022 5:46 PM EDT Tiffanie Womack RN No [facility] 01-24-2022 Are you blind, or do you have serious difficulty seeing, even when wearing glasses No 01/24/2022 5:46 PM EDT Tiffanie Womack RN No [facility] 01-24-2022 Do you have serious difficulty walking or climbing stairs Yes 01/24/2022 5:46 PM JARODT Tiffanie Womack RN Yes [facility] 01-24-2022 Do you have difficul ty dressing or bathing Yes 01/24/2022 5:46 PM Tiffanie Boston RN Yes [facility] 01-24-2022 Because of a physica l, mental, or emotional condition, do you have difficulty doing errands alone such as visiting a physician's office or shopping No 01/24/2022 5:46 PM EDT Tiffanie Womack, LIBRADO No [facility] Mental Status Date Assessment Result Facility 02-22-2025 Because of a physica l, mental, or emotional condition, do you have serious difficulty concentrating, remembering, or making decisions No 02/22/2025 8:55 PM EDT Nahun Gunderson RN No [facility] 01-24-2022 Because of a physica l, mental, or emotional condition, do you have serious difficulty concentrating, remembering, or making decisions No 01/24/2022 5:46 PM EDT Tiffanie Womack RN No [facility] Clinical Notes 01-16-2021 to 05-25-2025 Telephone Encounter - Noemi Spence RN - 05/25/2025 11:01 AM EDTTelephone Encounter - Cheryl Pimentel LPN - 05/24/2025 9:13 AM EDTTelephone Encounter - Noemi Spence RN - 05/25/2025 11:01 AM EDT Note Date & Type Note Facility 05-25-2025 Miscellaneous Notes Received a call from nurse Nikki [phone] stating Vanc tr this week is 17 and asking if IV Vanc can be hung. Told her yes, hang Vanc as trough is within therapeutic range. Per Nikki, they will obtain another Vanc level on 05/29. Received a call from Clement nurse at [facility]. She stated the labs that were supposed to be drawn for patient were missed this week and asked if the same dose of vanc should be given today. She stated that the labs will be drawn tomorrow 05/25/25 and office will be notified. Patient gets vanc dose 9am and 9pm daily. The trough will be drawn before vanc dose tomorrow am. Made Clement aware that facility can continue same dose of vanc until this weeks labs are received. documented in this encounter [facility] 05-25-2025 Telephone encounter Note Received a call from nurse Nikki [phone] stating Vanc tr this week is 17 and asking if IV Vanc can be hung. Told her yes, hang Vanc as trough is within therapeutic range. Per Nikki, they will obtain another Vanc level on 05/29. [facility] 05-24-2025 Telephone encounter Note Received a call from Clement stoner at [facility]. She stated the labs that were supposed to be drawn for patient were missed this week and asked if the same dose of vanc should be given today. She stated that the labs will be drawn tomorrow 05/25/25 and office will be notified. Patient gets vanc dose 9am and 9pm daily. The trough will be drawn before vanc dose tomorrow am. Made Clement aware that facility can continue same dose of vanc until this weeks labs are received. [facility] 04-28-2025 Nurse Note Called report to the [facility]. PICC line clean dry and intact. Aide got pt ready and gathered all belongings. Waiting on transport to arrive. [facility] 04-28-2025 Nurse Note Called report to the [facility]. PICC line clean dry and intact. Aide got pt ready and gathered all belongings. Waiting on transport to arrive. Patient dressings changed as per orders. Patient tolerated well. Left PICC dressing changed patient tolerated well documented in this encounter [facility] 04-28-2025 Note Discharge Summary Anmol Reynolds [...] feeding: High Dos (more content not included)... [facility] 04-28-2025 Hospital course Narrative Images from [...] Complexity: follow up within 7-14 calendar days (93681) [] Severe Complexity: follow up within 7 calendar days (03200) FOLLOW UP TESTING, PENDING RESULTS OR REFERRALS AT TRANSITIONAL CARE VISIT: [] Yes [] No PENDING STUDIES: DISPOSITION: Skilled Facility FACILITY/HOME CARE AGENCY NAME: Follow up with Tab Dupont PCP - General Internal Medicine [phone] [place] [address] [facility] [address] Next Steps: Schedule an appointment as soon as possible for a visit in 1 week(s) [facility] Wound Ostomy Wound Care [phone] [facility] [address] Next Steps: Schedule an appointment as soon as possible for a visit Kaela Durand MD Surgical Critical Care General Surgery Trauma Surgery [phone] [facility] [address] Next Steps: Schedule an appointment as soon as possible for a visit in 2 week(s) Savage Alvarez MD Infectious Diseases [phone] [facility] [address] Next Steps: Schedule an appointment as soon [...] 04/28/2025, 2:45 PM documented in this encounter [facility] 04-28-2025 Plan of care note Proteus is sensitive to unasyn. OPAT for unasyn and vancomycin completed and scanned into media with stop date of 06/06. Follow up with Dr. Alvarez. D/w TCC. Plans for discharge to SNF. Jo-Ann Ortiz MD [facility] Work Phone: 04-28-2025 Miscellaneous Notes Proteus is sensitive to unasyn. OPAT for unasyn and vancomycin completed and scanned into media with stop date of 06/06. Follow up with Dr. Alvarez. D/w TCC. Plans for discharge to SNF. Jo-Ann Ortiz MD Confirmed pickup time of 5:30pm on 04/28/25 by transport [employer] at phone number [phone]. Location of facility drop off is [facility]. Facility notified via Careport, [facility] notified on secure chat. Transport requested in Roundtrip in will call to [facility] per [facility]. Care Management Progress Note Short Medical why still here: continues to be treated for osteomyelitis. ID following- awaiting sensitivities for final IV plan. Currently receiving IV unasyn and vanc. PICC Line intact for antic 6wk course. Planned Discharge Disposition: plan for return to [facility]- will NOT need auth. [facility] to place pt in roundtrip under will [...] Planned Discharge Disposition: Plan for return to [facility]- does not need auth. Barriers/Today we still Wait: ID plan/opat. Length of Stay (Days): 5 GMLOS: 8.4 Care Management Progress Note Short Medical why still here: Pt continues to be treated for osteomyelitis. Receiving IV merrem q8hr with plan for 6wk tx per ID-final plan not complete. Planned Discharge Disposition: plan for return to [facility]- will need auth d/t skilled need for IV atb tx. Facility updated and asked to submit for auth. ADELINE complete. Barriers/Today we still Wait: Plan from ID/line placement and auth. Length of Stay (Days): 4 GMLOS: 8.4 Care Management Progress Note Short Medical why still here: Pt continues to be treated for osteomyelitis. ID following- receiving IV merrem and vanc- anticipate intermediate tx. Planned Discharge Disposition: Pt from [facility]- met with pt this afternoon- introduced self and role. Verified return when stable. Will need auth if pt has skilled needs (IV atb greater than once a day will qualify). Barriers/Today we still Wait: ID plan/line placement/opat. Length of Stay (Days): 3 GMLOS: 8.4 SW consult-[facility] transportation. SW reviewed chart. Pt is a LTC resident of [facility]. CT is responsible for pt transportation for medical appointments. . Return Referral placed to [facility] via Careport per [facility] request. Await review and response regarding ability to accept. TCC notified. Care Management Progress Note Short Medical why still here: Pt adm for tx/evaluation of osteomyelitis. OR this am with surgery for debridement of sacral and ischial wounds. Receiving IV merrem and vanc with ID following- anticipate intermediate needs. Planned Discharge Disposition: Pt from [facility] intermediate designer. Attempted to confirm return with pt however [...] achieved with bovie electrocautery. Two pieces of [place] patch were placed in the wound bed. [...] x 4 cm = 28 cm2 [CPT 84828, 71580] Open biopsy of left ischium [CPT 15618] This note is electronically signed by: Kaela [...] ago. States that he is at a chcf and they were concerned that his wounds [...] EMS pt was sent here from [facility] for wound infections. Pt has two wound [...] Procedure Abnormality Status --------- ------ Culture, Aerobic Bacteri...[[id number]] Abnormal Preliminary result Anaerobic culture[[id number]] In process Please view results for these [...] DECOMPRESSION performed by Opal Vigil MD at [facility] OR ORTHOPEDIC SURGERY Right removal of hardware [...] Resource Strain: Low Risk (04/24/2023) Received from [facility] Overall Financial Resource Strain (CARDIA) Difficulty of Paying Living Expenses: Not hard at all Food Insecurity: No Food Insecurity (02/17/2025) Received from [facility] Hunger Vital Sign Worried About Running Out of Food in the Last Year: Never true Ran Out of Food in the Last Year: Never true Transportation Needs: No Transportation Needs (02/17/2025) Received from [facility] PRAPARE - Transportation Lack of Transportation (Medical): No Lack of Transportation (Non-Medical): No Intimate Partner Violence: Not At Risk (05/18/2024) Humiliation, Afraid, Rape, and Kick questionnaire Fear of Current or Ex-Partner: No Emotionally Abused: No Physically Abused: No Sexually Abused: No Housing Stability: Unknown (02/17/2025) Received from [facility] Housing Stability Vital Sign Unable to Pay for Housing in the Last Year: No Homeless in the Last Year: No Brad Campos MD 04/22/25 0201 documented in this encounter [facility] 04-28-2025 Progress note Formatting of t his note might be different from the original. Confirmed pickup time of 5:30pm on 04/28/25 by [employer] at phone number [phone]. Location of facility drop off is [facility]. Facility notified via Careport, TCC notified on secure chat. [facility] 04-28-2025 Hospital Discharge instructions Berhane Moreno [...] MD PCP: Tab Dupont Discharging Nurse: [facility] Unit/Room#: N4-455/N4-455 [...] DECOMPRESSION performed by Opal Vigil MD at [facility] OR ORTHOPEDIC SURGERY Right removal of hardware [...] assistance Toileting Total assistance Feeding Minimal assistance Manager Of Administration Minimal assistance Med Delivery yes Wound Care [...] Date: 04/22/25 [facility] [place] [address], [place] [address] 13 ks Cellophane Bag Machine Operator/Experimental Preflight Mechanic signature: ICIAN SECTION Name: Anmol Reynolds Prognosis: good Condition at Discharge: stable Rehab Potential (if transferring to Rehab): fair Recommended Labs or Other Treatments After Discharge: CBC, CMP panel weekly till IV antibiotic is completed Discontinue PICC line after IV antibiotic is completed The individual is being admitted to a nursing facility directly from an [facility] or a unit of a [facility] that is not operated by or licensed by [facility] under section 5119.14 or 5160-3-15.1 5 The individual requires the level of services provided by a nursing facility for the condition for which he or she was treated in the hospital and, Physician Certification: I certify the above information and transfer of Anmol Reynolds is necessary for the continuing treatment of the diagnosis listed and that he requires usp facility for greater than 30 days. Update Admission H&P: No change in H&P PHYSICIAN SIGNATURE: documented in this encounter [facility] 04-28-2025 Progress note Formatting of t his note might be different from the original. Transport requested in Roundtrip in will call to [facility] per [facility]. [facility] 04-28-2025 Note Care Management Prog ress Note Short Medical why still here: continues to be treated for osteomyelitis. ID following- awaiting sensitivities for final IV plan. Currently receiving IV unasyn and vanc. PICC Line intact for antic 6wk course. Planned Discharge Disposition: plan for return to [facility]- will NOT need auth. [employer] to place pt in roundtrip under will call for transport assist. Barriers/Today we still Wait: need opat/final plan for discharge. Length of Stay (Days): 6 GMLOS: 8.4 [facility] 04-28-2025 Progress note Formatting of t his note might be different from the original. Care Management Progress Note Short Medical why still here: continues to be treated for osteomyelitis. ID following- awaiting sensitivities for final IV plan. Currently receiving IV unasyn and vanc. PICC Line intact for antic 6wk course. Planned Discharge Disposition: plan for return to [facility]- will NOT need auth. [employer] to place pt in roundtrip under will call for transport assist. Barriers/Today we still Wait: need opat/final plan for discharge. Length of Stay (Days): 6 GMLOS: 8.4 [facility] 04-28-2025 Note Hospitalist Progress Note 04/28/2025 10:05 AM [phone]: Please page me for patient care issues. [phone]: Please page [facility] night Hospitalist for any issues. Subjective: Admit Date: 04/21/2025 PCP: Tab Dupont Room#: N4-357/N4-951 A Interval History: Patient seen and examined [...] diet Regular; 4 carb choices (60 gm/meal) @[id number]@ Medications: Continuous Meds[2] Scheduled Meds[3] LABS: CBC: [...] daily Wound care team following. PT recommended usp facility Continue IV Venofer as ordered for [...] Reynolds Mobile Relation (more content not included)... [facility] 04-28-2025 History of Present illness Narrative Hospitalist Progress Note 04/28/2025 10:05 AM [phone]: Please page me for patient care issues. [phone]: Please page [facility] night Hospitalist for any [...] diet Regular; 4 carb choices (60 gm/meal) @[id number]@ Medications: Continuous Meds[2] Scheduled Meds[3] LABS: CBC: [...] daily Wound care team following. PT recommended usp facility Continue IV Venofer as ordered for [...] made to ensure accuracy; however, inadvertent computerized veterans contact representative errors may be present. Berhane Moreno MD Division of Hospitalist Medicine [employer] [facility] [employer] PAGER: Epic chat [1] Past Medical History: [...] creatinine, and vancomycin levels interfaced automatically to 55social and data has been analyzed and interpreted. [...] Chat Hospitalist Progress Note 04/27/2025 9:04 AM [phone]: Please page me for patient care issues. [phone]: Please page [facility] night Hospitalist for any [...] diet Regular; 4 carb choices (60 gm/meal) @[id number]@ Medications: Continuous Meds[2] Scheduled Meds[3] LABS: CBC: [...] daily Wound care team following. PT recommended usp facility Continue IV Venofer as ordered for [...] made to ensure accuracy; however, inadvertent computerized veterans contact representative errors may be present. Berhane Moreno MD Division of Hospitalist Medicine [employer] [facility] PAGER: Epic chat [1] Past Medical History: [...] creatinine, and vancomycin levels interfaced automatically to [employer]social and data has been analyzed and interpreted. [...] Chat Hospitalist Progress Note 04/26/2025 9:58 AM [phone]: Please page me for patient care issues. [phone]: Please page [facility] night Hospitalist for any issues. Subjective: Admit Date: 04/21/2025 PCP: Tab Dupont Room#: N4455/N4455 A Interval History: Patient seen and examined [...] diet Regular; 4 carb choices (60 gm/meal) @[id number]@ Medications: Continuous Meds[2] Scheduled Meds[3] LABS: CBC: [...] daily Wound care team following. PT recommended usp facility IV Venofer for iron deficiency anemia ordered x 2 dose Hold ferrous sulfate Discussed with certified surgical technician by jaydon malone--okay to restart anticoagulation today Continue rest [...] made to ensure accuracy; however, inadvertent computerized veterans contact representative errors may be present. Berhane Moreno MD Division of Hospitalist Medicine [employer] [facility] [employer] PAGER: Epic kira [1] Past Medical History: Diagnosis Date Abnormal [...] creatinine, and vancomycin levels interfaced automatically to [employer]social and data has been analyzed and interpreted. [...] Chat Hospitalist Progress Note 04/25/2025 5:34 PM [phone]: Please page me for patient care issues. [phone]: Please page [facility] night Hospitalist for any issues. Subjective: [...] diet Regular; 4 carb choices (60 gm/meal) @[id number]@ Medications: Continuous Meds[2] Scheduled Meds[3] LABS: CBC: Recent Labs 04/23/25 0013 04/24/25 0206 04/25/25 0056 WBC 9.4 9.3 9.5 RBC 3.47* 3.68* 3.62* HGB 9.9* 10.6* 10.4* HCT 30.7* 32.8* 32.6* MCV 88.5 89.1 90.1 RDW 14.9 14.9 14.8 PLT 352 367 421 BMP: Recent Labs 04/23/25 00104/24/25 0206 04/25/25 0056 NA 133* 136 134* [...] daily Wound care team following PT recommended usp facility Check iron profile Patient can be [...] made to ensure accuracy; however, inadvertent computerized veterans contact representative errors may be present. Berhane Moreno MD Division of Hospitalist Medicine [employer] PAGER: Epic chat [1] Past Medical History: [...] Oral, Daily vancomycin, 1,500 mg, IntraVENous, q12h [facility] - Infectious Diseases Attending Progress Note Subjective: Hkalida cute events POD#1 s/p I+D of L [...] NA 134 (L) 04/25/2025 005 K 4.3 04/25/202555 CL 101 04/25/2025 0056 [...] Date/Time WBC 9.5 04/25/20256 HGB 10.4 (L) 04/25/2025 0056 HGB 13.7 [...] to Meropenem Impression: [address] [facility] with: Worsening decubitus ulcer , concerning [...] creatinine, and vancomycin levels interfaced automatically to [employer]social and data has been analyzed and interpreted. [...] TIME: 9:15 AM Bridgette Virk PharmD PGY1 Structural Metal Worker Available via Secure Chat Images from the original note were not included. Department of General Surgery Daily Progress Note ADMIT DATE: 04/21/2025 TODAY'S DATE: 04/25/2025 HPI: Anmol Reynolds is a 64 y.o. male with significant past medical history of paraplegia s/[facility], HLD, HTN, MDD, OA, a-fib on eliquis, chronic sacral wounds who presents from his [facility] after he states the nurses have become [...] Contact: SUMI REYNOLDS Mobile Relation: Daughter Kerwin RicciDO Division of Hospitalist Medicine Acute care [facility] [1] Past Medical History: Diagnosis Date [...] (BLE Edema: Moderate pitting, indentation subsides rapidly) Dragger Out Strength: Not Performed Chief Complaint Patient presents with Wound Infection Per EMS pt was sent here from the [facility] for wound infections. 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 Nurse states she ordered [...] (kg): 82.41 kg Total Energy Requirements (kcals/day): 4027-4270 (25-30 kcals/kg) Weight Used for Protein Requirements: [...] History: Independent of feeding and Resides at LT facility Level of Consciousness: Alert; Orientation Level: Oriented X4 Code Status, Oxygen Needs, Vital Signs, I/Os: Code Status: Full Code Oxygen Therapy: SpO2: 93 %; Oxygen Therapy: None (Room air) Vital Signs: Temp: 36.1 C (97 F); Heart Rate: 64; Resp: 16; BP: 99/59; MAP (mmHg): 65 Net IO Since Admission: -3,820 mL [04/24/25 1615] Intake/Output Summary (Last 24 hours) at 04/24/20251614 [...] in paraplegia) % Weight Change (Calculated): 0 [place] Body Weight (lbs) (Calculated): 196 lbs [place] Body Weight (Kg) (Calculated): 89 kg % [place] Body Weight (Calculated): 99.5 % BMI (kg/m2) (Calculated): 24.4 Weight Adjustment For: Paraplegia % Weight Adjustment: 7.5 - Paraplegia Total Adjusted Percentage (Calculated): 7.5 Adjusted [place] Body Weight (lbs) (Calculated): 181.3 lbs Adjusted [place] Body Weight (kg) (Calculated): 82.41 kg Adjusted [...] Discharge Planning: Too soon to determine Elly Whatleymamadou MS, RD, LD Contact: or [email or web address] Chat (dial *[phone] from hospital phone) [1] Past Medical History: [...] DECOMPRESSION performed by Opal Vigil MD at [facility] OR ORTHOPEDIC SURGERY Right removal of hardware ankle OTHER SURGICAL HISTORY 04/24/2025 Sacral wound DEBRIDEMENT SKIN SUBCUTANEOUS TISSUE MUSCLE - Bilateral US PLACE URETAL STENT PERC PRE-EXIST TRACT S&I (HISTORICAL) Bilateral 04/14/2024 Dr. Grimm/Bashri [3] [Held by provider] apixaban, 5 mg, [...] creatinine, and vancomycin levels interfaced automatically to 55social and data has been analyzed and interpreted. [...] JOE Diaz CNP Family Communication Number Called: [phone] Name of Designated Family Cover Machine Operator: Ronald Reynolds Relationship: brother Phone Call Outcome: I spoke with the individual listed above. Family Cover Machine Operator Updated on the Following: I updated Ronald [...] s/p surgical complication with Dr. Ashley at [facility], HLD, HTN, MDD, OA, a-fib on eliquis, chronic sacral wounds who presents from his [facility] after he states the nurses have become [...] of Trauma Department of Surgery [facility] [1] Patient Active Problem List Diagnosis [...] Emergency Contact: GAILSUMI Mobile Relation: Daughter Kerwin Ricci, DO Division of Hospitalist Medicine [facility] [1] Past Medical History: Diagnosis Date [...] original note were not included. PHYSICAL THERAPY [facility] Initial Evaluation Name/MRN: Anmol Reynolds ([id number]) Evaluation Date: 04/23/2025 Date of : 1960 Admission Date: 04/21/2025 9:56 PM Age: 64 y.o. Room/Bed: N4-465/N4-465 B Discharge Recommendation: Fpc Facility Equipment Needed: No Assessment IMPRESSION: PT eval completed and the pt is at his functional baseline for transfers, ambulation, balance, and bed mobility. No skilled therapy needs at this time. Recommended return to [facility] level therapy upon disch and PT is [...] Anxiety 01/06/2017 Other acute osteomyelitis, other site ([facility]) 04/22/2025 Positive blood cultures 05/17/2024 Calculus of ureter 05/06/2024 Bladder calculus 05/05/2024 Pressure injury of coccygeal region, stage 3 ([facility]) 04/20/2024 Septic shock ([facility]) 04/14/2024 Lumbar stenosis with neurogenic claudication 10/24/2020 Spinal stenosis of lumbar region with neurogenic claudication 10/24/2020 Nicotine use disorder 10/15/2020 Unspecified osteoarthritis, unspecified site 10/15/2020 Pilonidal cyst without abscess 10/15/2020 Diabetes mellitus without complication ([facility]) 10/15/2020 Abnormal finding on EKG 10/15/2020 [...] x4 Social/Functional History Patient admitted from [facility] . Assistive Equipment: wheelchair - manual [...] of Care supervision is transferred to a [facility] Physical Therapist. Goals and/or [...] DECOMPRESSION performed by Opal Vigil MD at [facility] OR ORTHOPEDIC SURGERY Right removal of hardware ankle US PLACE URETAL STENT [facility]C PRE-EXIST TRACT S&I (HISTORICAL) Bilateral 04/14/2024 Dr. Grimm/Bashir Pharmacy to Dose Vancomycin - Progress Note Lab Results Component Value Date CREATININE 0.54 (L) 04/23/2025 BUN 8 (L) 04/23/2025 WBC 9.4 04/23/2025 VANCORANDOM 12.3 (L) 04/16/2024 VANCOTROUGH 12.4 04/22/2025 Doses, serum creatinine, and vancomycin levels interfaced automatically to 55social and data has been analyzed and interpreted. [...] Kerwin BeckfordDO silas Division of Hospitalist Medicine [employer] [facility] [1] Past Medical History: Diagnosis Date [...] creatinine, and vancomycin levels interfaced automatically to 55social and data has been analyzed and interpreted. [...] via Secure Chat documented in this encounter [facility] [employer] 04-28-2025 Note Pharmacy to Dose Van comycin - Progress Note Lab Results Component Value Date CREATININE 0.64 (L) 04/27/2025 BUN 21 04/27/2025 WBC 8.0 04/27/2025 VANCORANDOM 12.3 (L) 04/16/2024 VANCOTROUGH 12.0 04/24/2025 Doses, serum creatinine, and vancomycin levels interfaced automatically to 55social and data has been analyzed and interpreted. [...] PharmD Clinical Pharmacist Available via Secure Chat [facility] 04-27-2025 Plan of care note Assuming coverage from Dr. Alvarez- s/p Mina ischial wound debridement with osteomyelitis. Additional organisms are being reported on OR cx. E raffinosus, Proteus, MRSA, Clostridium ramosum, enteric gosia, and skin gosia. Await Proteus sensitivities prior to completion of OPAT. Will provide final recommendations tomorrow. D/w TCC. Jo-Ann Ortiz MD [facility] 04-27-2025 Note Care Management Prog ress Note Short Medical why still here: pt being treated for osteomyelitis. Receiving IV unaysn and vanc with ID planning on extended IV course- awaiting opat/final plan. Planned Discharge Disposition: Plan for return to [facility]- does not need auth. Barriers/Today we still Wait: ID plan/opat. Length of Stay (Days): 5 GMLOS: 8.4 [facility] 04-27-2025 Progress note Formatting of t his note might be different from the original. Care Management Progress Note Short Medical why still here: pt being treated for osteomyelitis. Receiving IV unaysn and vanc with ID planning on extended IV course- awaiting opat/final plan. Planned Discharge Disposition: Plan for return to [facility]- does not need auth. Barriers/Today we still Wait: ID plan/opat. Length of Stay (Days): 5 GMLOS: 8.4 [facility] 04-27-2025 Nurse Note Patient dressings changed as per orders. Patient tolerated well. Left PICC dressing changed patient tolerated well [facility] 04-27-2025 Note Hospitalist Progress Note 04/27/2025 9:04 AM [phone]: Please page me for patient care issues. [phone]: Please page [facility] night Hospitalist for any issues. Subjective: Admit Date: 04/21/2025 PCP: Tab Dupont Room#: N4455/N4455 A Interval History: Patient seen and examined [...] diet Regular; 4 carb choices (60 gm/meal) @[id number]@ Medications: Continuous Meds[2] Scheduled Meds[3] LABS: CBC: [...] daily Wound care team following. PT recommended usp facility Continue IV Venofer as ordered for [...] Primary Emergency Con (more content not included)... [facility] 04-27-2025 Note Pharmacy to Dose Van comycin - Progress Note Lab Results Component Value Date CREATININE 0.64 (L) 04/27/2025 BUN 21 04/27/2025 WBC 8.0 04/27/2025 VANCORANDOM 12.3 (L) 04/16/2024 VANCOTROUGH 12.0 04/24/2025 Doses, serum creatinine, and vancomycin levels interfaced automatically to [employer] and data has been analyzed and interpreted. [...] PharmD Clinical Pharmacist Available via Secure Chat [facility] 04-26-2025 Note Care Management Prog ress Note Short Medical why still here: Pt continues to be treated for osteomyelitis. Receiving IV merrem q8hr with plan for 6wk tx per ID-final plan not complete. Planned Discharge Disposition: plan for return to [facility]- will need auth d/t skilled need for IV atb tx. Facility updated and asked to submit for auth. ADELINE complete. Barriers/Today we still Wait: Plan from ID/line placement and auth. Length of Stay (Days): 4 GMLOS: 8.4 [facility] 04-26-2025 Progress note Formatting of t his note might be different from the original. Care Management Progress Note Short Medical why still here: Pt continues to be treated for osteomyelitis. Receiving IV merrem q8hr with plan for 6wk tx per ID-final plan not complete. Planned Discharge Disposition: plan for return to [facility]- will need auth d/t skilled need for IV atb tx. Facility updated and asked to submit for auth. ADELINE complete. Barriers/Today we still Wait: Plan from ID/line placement and auth. Length of Stay (Days): 4 GMLOS: 8.4 [facility] 04-26-2025 Note Hospitalist Progress Note 04/26/2025 9:58 AM [phone]: Please page me for patient care issues. : Please page [facility] Hospitalist for any issues. Subjective: Admit Date: 04/21/2025 PCP: Tab Dupont Room#: N4-271/N4-131 A Interval History: Patient seen and examined [...] diet Regular; 4 carb choices (60 gm/meal) @[id number]@ Medications: Continuous Meds[2] Scheduled Meds[3] LABS: CBC: [...] daily Wound care team following. PT recommended [facility] facility IV Venofer for iron deficiency anemia ordered x 2 dose Hold ferrous sulfate Discussed with certified surgical technician by [employer] chat--okay to restart anticoagulation today Continue rest [...] monitoring : Accu-C (more content not included)... [facility] 04-26-2025 Note Pharmacy to Dose Van comycin - Progress Note Lab Results Component Value Date CREATININE 0.62 (L) 04/26/2025 BUN 19 04/26/2025 WBC 7.3 04/26/2025 VANCORANDOM 12.3 (L) 04/16/2024 VANCOTROUGH 12.0 04/24/2025 Doses, serum creatinine, and vancomycin levels interfaced automatically to [employer] and data has been analyzed and interpreted. [...] PharmD Clinical Pharmacist Available via Secure Chat [facility] 04-25-2025 Note Hospitalist Progress Note 04/25/2025 5:34 PM [phone]: Please page me for patient care issues. [phone]: Please page [facility] night Hospitalist for any issues. Subjective: Admit Date: 04/21/2025 PCP: Tab Dupont Room#: N4-465/N4-899 B Interval History: Patient seen and examined [...] diet Regular; 4 carb choices (60 gm/meal) @[id number]@ Medications: Continuous Meds[2] Scheduled Meds[3] LABS: CBC: [...] daily Wound care team following PT recommended [facility] facility Check iron profile Patient can be [...] Daughter Advance D (more content not included)... [facility] 04-25-2025 Note Care Management Prog ress Note Short Medical why still here: Pt continues to be treated for osteomyelitis. ID following- receiving IV merrem and vanc- anticipate intermediate tx. Planned Discharge Disposition: Pt from [facility]- met with pt this afternoon- introduced self and role. Verified return when stable. Will need auth if pt has skilled needs (IV atb greater than once a day will qualify). Barriers/Today we still Wait: ID plan/line placement/opat. Length of Stay (Days): 3 GMLOS: 8.4 [facility] 04-25-2025 Progress note Formatting of t his note might be different from the original. Care Management Progress Note Short Medical why still here: Pt continues to be treated for osteomyelitis. ID following- receiving IV merrem and vanc- anticipate intermediate designer tx. Planned Discharge Disposition: Pt from [facility]- met with pt this afternoon- introduced self and role. Verified return when stable. Will need auth if pt has skilled needs (IV atb greater than once a day will qualify). Barriers/Today we still Wait: ID plan/line placement/opat. Length of Stay (Days): 3 GMLOS: 8.4 [facility] 04-25-2025 Note [facility] - Infectious Diseases Attending [...] NA 134 (L) 04/25/2025 005 K 4.3 04/25/202555 CL 101 04/25/2025 0056 CO2 26 04/25/20256 BUN 14 04/25/2025 005 CREATININE 0.73 04/25/202555 CREATININE 0.57 (L) 10/25/2020 0457 GLUCOSE 213 (H) 04/25/20256 CALCIUM 8.2 (L) 04/25/2025 0056 PROT 7.6 04/21/2025 2257 BILITOT 0.5 04/21/2025 225 ALKPHOS 116 04/21/2025 2257 AST 13 04/21/2025 2257 ALT 6 04/21/2025 2257 PROCAL 27.06 (H) 04/14/2024 2318 Lab Results Component Value Date/Time WBC 9.5 04/25/20256 HGB 10.4 (L) 04/25/20256 HGB 13.7 04/14/2024 1730 HCT 32.6 (L) [...] to Meropenem Impression: [address] [facility] with: Worsening decubitus ulcer , concerning [...] optimize wound healing. Will follow. Case d/wCM. [facility] 04-25-2025 Note Pharmacy to Dose Van comycin - Progress Note Lab Results Component Value Date CREATININE 0.73 04/25/2025 BUN 14 04/25/2025 WBC 9.5 04/25/2025 VANCORANDOM 12.3 (L) 04/16/2024 VANCOTROUGH 12.0 04/24/2025 Doses, serum creatinine, and vancomycin levels interfaced automatically to [employer] and data has been analyzed and interpreted. [...] TIME: 9:15 AM Bridgette Virk, PharmD PGY1 Structural Metal Worker Available via Secure [employer] [facility] 04-25-2025 Note Department of [facility] l Surgery Daily Progress Note ADMIT DATE: 04/21/2025 TODAY'S DATE: 04/25/2025 HPI: Anmol Reynolds is a 64 y.o. male with significant past medical history of paraplegia s/p surgical complication with Dr. Ashley at [facility], HLD, HTN, MDD, OA, a-fib on eliquis, chronic sacral wounds who [facility] after he states the nurses have become [...] Lab Units 04/25/256 04/24/25 0206 04/23/25 0013 WBC AUTO 10*3/uL [...] call with questions or concerns Maureen Garduno, RN DIABETES - PROPOSAL ENGINEER 04/25/25 7:58 AM [1] [Held by provider] [...] polyethylene glycol (PEG) 3350, sodium chloride 0.9% [facility] 04-24-2025 Note Hospitalist Progress Note 04/24/2025 [...] History[1] LABS: CBC: Recent Labs 04/21/25 2257 04/23/25 0013 04/24/25 0206 WBC 12.5* 9.4 [...] precautions: increase ac (more content not included)... [facility] 04-24-2025 Note Patient declined smo rl cessation counseling. Accepting of handout with contact information for future reference. [facility] 04-24-2025 Progress note Formatting of t his note might be different from the original. [facility] transportation. VIVIAN reviewed chart. Pt is a L[facility] resident of [facility]. CT is responsible for pt transportation for medical appointments. . [facility] 04-24-2025 Note Return Referral plac ed to [facility] via [facility] per [facility] request. Await review and response regarding ability to accept. TCC notified. [facility] 04-24-2025 Progress note Formatting of t his note might be different from the original. Return Referral placed to [facility] via [facility] per [facility] request. Await review and response regarding ability to accept. [facility] notified. [facility] 04-24-2025 Note Care Management Prog ress Note Short Medical why still here: Pt adm for tx/evaluation of osteomyelitis. OR this am with surgery for debridement of sacral and ischial wounds. Receiving IV merrem and vanc with ID following- anticipate intermediate designer needs. Planned Discharge Disposition: Pt from [facility] intermediate designer. Attempted to confirm return with pt however pt sleeping this am- unable to arouse for conversation. Barriers/Today we still Wait: IV atb/ID plan. Length of Stay (Days): 2 GMLOS: 4 [facility] 04-24-2025 Progress note Formatting of t his note might be different from the original. Care Management Progress Note Short Medical why still here: Pt adm for tx/evaluation of osteomyelitis. OR this am with surgery for debridement of sacral and ischial wounds. Receiving IV merrem and vanc with ID following- anticipate intermediate designer needs. Planned Discharge Disposition: Pt from [facility]. Attempted to confirm return with pt however pt sleeping this am- unable to arouse for conversation. Barriers/Today we still Wait: IV atb/ID plan. Length of Stay (Days): 2 GMLOS: 4 [facility] 04-24-2025 Note Pharmacy to Dose Van comycin - Progress Note Lab Results Component Value Date CREATININE 0.59 (L) 04/24/2025 BUN 7 (L) 04/24/2025 WBC 9.3 04/24/2025 VANCORANDOM 12.3 (L) 04/16/2024 VANCOTROUGH 12.0 04/24/2025 Doses, serum creatinine, and vancomycin levels interfaced automatically to [employer] and data has been analyzed and interpreted. [...] Orders placed. DATE: 04/24/25 TIME: 10:29 AM Judy HerD Clinical Pharmacist Available via [employer] [facility] 04-24-2025 Note Patient: Anmol Franco Giraven en Procedure Summary Date: 04/24/25 Room / Location: [address] Operating Room Anesthesia Start: 729 Anesthesia [...] once all PACU criteria has been met. [facility] 04-24-2025 Note Patient: Anmol Santiago en Procedure Summary Date: 04/24/25 Room / Location: [address] Operating Room Anesthesia Start: 30 Anesthesia Stop: 844 Procedure: Sacral wound DEBRIDEMENT [...] opportunity for questions and acknowledgement of understanding. [facility] 04-24-2025 Nurse Note Patient states nobody here to update [facility] 04-24-2025 Note Family Communication Number Called: [phone] Name of Designated Family Cover Machine Operator: Ronald Given Relationship: brother Phone Call Outcome: I spoke with the individual listed above. Family Cover Machine Operator Updated on the Following: I updated Ronald on Anmol's surgery. He will rely the message to Ronald's daughter Sumi (phone number provided not functional). [facility] 04-24-2025 Note Airway Date/Time: 04/24/2025 7:37 AM Reason: scheduled Airway not difficult General Information and Staff Patient location during procedure: Procedural Resident/VENDING MACHINE COLLECTOR: Quinten Salgado APRN - VENDING MACHINE COLLECTOR Performed: VENDING MACHINE COLLECTOR Patient Condition Indications for airway management: anesthesia [...] 23 Number of attempts at approach: 1 [facility] 04-24-2025 Note Patient: Anmol Franco Giv en Procedure Information Date/Time: 04/24/25729 Procedure: Sacral wound DEBRIDEMENT SKIN SUBCUTANEOUS TISSUE MUSCLE (Bilateral) Location: [address] Operating Room Surgeons: Kaela Durand MD [...] date: Other reduced mobility No date: Paraplegia ([facility]) No date: Sciatica No date: Spinal stenosis of lumbar region with neurogenic claudication No date: Type 2 diabetes mellitus without complication ([facility]/HCC) ([facility]) No date: Urinary calculus, unspecified No date: UTI (urinary tract infection) Past Surgical History: Past Surgical History: No date: ANKLE SURGERY; Right Comment: He has a titanium plate to the right ankle No date: KNEE SURGERY; Left Comment: ACL No date: KNEE SURGERY; Left Comment: removal of screw 10/24/2020: LAMINECTOMY; Left Comment: LEFT BILATERAL L2-3-4-5 DECOMPRESSION performed by Opal Vigil MD at [facility] [place] No date: ORTHOPEDIC SURGERY; Right Comment: [...] Requests [1] No family history on file. [facility] 04-24-2025 Procedure note OPERATIVE REPORT Date [...] achieved with bovie electrocautery. Two pieces of [place] patch were placed in the wound bed. [...] x 4 cm = 28 cm2 [CPT 80934, 67899] Open biopsy of left ischium [CPT 03596] This note is electronically signed by: Kaela Durand MD 1:56 PM, 04/25/2025. [facility] 04-24-2025 Plan of care note Problem: [...] monitored and maintained or improved Outcome: Progressing [facility] 04-23-2025 Note Hospitalist Progress Note 04/23/2025 [...] precautions: increase act (more content not included)... [facility] 04-23-2025 Plan of care note Problem: Pain - Adult Goal: Verbalizes/displays adequate comfort level or baseline comfort level Outcome: Progressing Problem: Safety - Adult Goal: Free from fall injury Outcome: Progressing Problem: Chronic Conditions and Co-morbidities Goal: Patient's chronic conditions and co-morbidity symptoms are monitored and maintained or improved Outcome: Progressing [facility] 04-23-2025 Note PHYSICAL THERAPY [facility] Initial Evaluation Name/MRN: Anmol Franco Gail ([id number]) Evaluation Date: 04/23/2025 Date of : 1960 Admission Date: 04/21/2025 9:56 PM Age: 64 y.o. Room/Bed: N4-465/N4-465 B Discharge Recommendation: [facility] Facility Equipment Needed: No Assessment IMPRESSION: PT [...] Anxiety 01/06/2017 Other acute osteomyelitis, other site ([facility]) 04/22/2025 Positive blood cultures 05/17/2024 Calculus of ureter 05/06/2024 Bladder calculus 05/05/2024 Pressure injury of coccygeal region, stage 3 ([facility]) 04/20/2024 Septic shock ([facility]) 04/14/2024 Lumbar stenosis with neurogenic claudication 10/24/2020 Spinal stenosis of lumbar region with neurogenic claudication 10/24/2020 Nicotine use disorder 10/15/2020 Unspecified osteoarthritis, unspecified site 10/15/2020 Pilonidal cyst without abscess 10/15/2020 Diabetes mellitus without complication ([facility]) 10/15/2020 Abnormal finding on EKG 10/15/2020 [...] x4 Social/Functional History Patient admitted from [facility] . Assistive Equipment: wheelchair - manual [...] of Care supervision is transferred to a [facility] Therapy Services Physical Therapist. Goals and/or treatment plan was established in collaboration with patient/family/other representatives. [1] Past Medical History: Diagnosis Date Abnormal posture Abscess, perineum Anemia BPH (benign prostatic hyperplasia) Chronic back pain Hem (more content not included)... [facility] 04-23-2025 Note Pharmacy to Dose Van comycin - Progress Note Lab Results Component Value Date CREATININE 0.54 (L) 04/23/2025 BUN 8 (L) 04/23/2025 WBC 9.4 04/23/2025 VANCORANDOM 12.3 (L) 04/16/2024 VANCOTROUGH 12.4 04/22/2025 Doses, serum creatinine, and vancomycin levels interfaced automatically to [employer] and data has been analyzed and interpreted. [...] DATE: 04/23/25 TIME: 8:13 AM Radha Deal [facility] Clinical Pharmacist Available via Secure Chat [facility] 04-23-2025 Plan of care note Problem: [...] monitored and maintained or improved Outcome: Progressing [facility] 04-22-2025 Consult note Associated Order (s): [...] as ESBL Proteus UTI/ sepsis recently at [facility]. He had a sacral decubitus ulcer for years, was already improving but worsened since most recent prolonged hospitalization once more in February 2025. Buttock ulcer developed that time as well. Patient stabilized, completed IV antibiotics, and was doing well except at [facility] increased concern for worsening wound infection, [...] Resource Strain: Low Risk (04/24/2023) Received from [facility] Overall Financial Resource Strain (CARDIA) Difficulty [...] to Meropenem Impression: [address] [facility] with: Worsening decubitus ulcer , concerning [...] DECOMPRESSION performed by Opal Vigil MD at [facility] [place] ORTHOPEDIC SURGERY Right removal of hardware [...] 1,000 mg Oral q8h PRN Alberto Boogie, LUMBER BEARER [START ON 04/23/2025] chlorhexidine (Hibiclens) 4 % solution Topical Daily Alberto Boogie, LUMBER BEARER cyclobenzaprine (Flexeril) tablet 10 mg 10 mg Oral TID PRN Alberto Boogie, LUMBER BEARER 10 mg at 04/22/25 0624 dextrose 5 % infusion 100 mL/hr IntraVENous PRN Alberto Boogie, LUMBER BEARER dextrose 50 % solution 12.5 g 12.5 g IntraVENous PRN Alberto Boogie, LUMBER BEARER DULoxetine (Cymbalta) DR capsule 30 mg 30 mg Oral Daily Alberto Boogie, LUMBER BEARER 30 mg at 04/22/25 0923 ferrous sulfate tablet 325 mg 325 mg Oral Daily with breakfast Alberto Boogie, LUMBER BEARER 325 mg at 04/22/25 0921 glucagon (human recombinant) injection 1 mg 1 mg IntraMUSCular PRN Alberto Boogie, LUMBER BEARER glucose oral gel 15 g 15 g Oral PRN Alberto Boogie, LUMBER BEARER insulin glargine (Lantus) injection 45 Units 45 Units SubCUTAneous q AM Alberto Boogie, LUMBER BEARER 45 Units at 04/22/25 0921 Insulin Lispro (Humalog) injection 0-18 Units 0-18 Units SubCUTAneous TID WC Alberto Boogie, LUMBER BEARER 9 Units at 04/22/25 0921 And Insulin Lispro (Humalog) injection 0-18 Units 0-18 Units SubCUTAneous Nightly Alberto Boogie, LUMBER BEARER [START ON 04/24/2025] lactated Ringer's infusion 100 mL/hr IntraVENous Continuous Cari Maribel Ling MD linaGLIPtin (Tradjenta) tablet 5 mg 5 mg Oral Daily Alberto Boogie, LUMBER BEARER 5 mg at 04/22/25 0946 meropenem (Merrem) 2,000 mg in sodium chloride 0.9 % 100 mL IVPB 2,000 mg IntraVENous q8h Kerwin Ricci DO midodrine (Proamatine) tablet 10 mg 10 mg Oral TID Alberto Boogie, LUMBER BEARER 10 mg at 04/22/25 0921 mirtazapine (Remeron) tablet 7.5 mg 7.5 mg Oral Nightly Alberto Miltons, LUMBER BEARER naloxone (Narcan) nasal spray 4 mg 4 mg Nasal PRN Ross G [place], LUMBER BEARER ondansetron ODT (Zofran-ODT) disintegrating tablet 4 mg 4 mg Oral q8h PRN Alberto Boogie, LUMBER BEARER Or ondansetron (Zofran) injection 4 mg 4 mg IntraVENous q6h PRN Alberto Miltons, LUMBER BEARER oxyCODONE (Roxicodone) immediate release tablet 15 mg 15 mg Oral 4x daily Alberto Miltons, LUMBER BEARER 15 mg at 04/22/25 0921 polyethylene glycol (PEG) 3350 (Miralax) packet 17 g 17 g Oral BID Alberto Miltons, LUMBER BEARER 17 g at 04/22/25 0921 polyethylene glycol (PEG) 3350 (Miralax) packet 17 g 17 g Oral Daily PRN Alberto Boogie, LUMBER BEARER pregabalin (Lyrica) capsule 200 mg 200 mg Oral TID Alberto Boogie, LUMBER BEARER 200 mg at 04/22/25 0920 senna-docusate sodium (Senokot-S) 8.6-50 MG tablet 2 tablet 2 tablet Oral BID Alberto Boogie, LUMBER BEARER 2 tablet at 04/22/25 0921 sodium chloride 0.9% (NS) flush 10 mL 10 mL IntraCATHeter q12h Alberto Miltons, LUMBER BEARER 10 mL at 04/22/25 0634 sodium chloride 0.9% (NS) flush 10 mL 10 mL IntraCATHeter PRN Alberto Boogie, LUMBER BEARER tamsulosin (Flomax) 24 hr capsule 0.4 mg 0.4 mg Oral Daily Alberto Boogie, LUMBER BEARER 0.4 mg at 04/22/25 0922 vancomycin IVPB 1500 mg in 250 mL NS (premix) 1,500 mg IntraVENous q12h Alberto Boogie, LUMBER BEARER [4] No Known Allergies [5] No family history on file. [facility] 04-22-2025 Consult note Associated Order (s): IP CONSULT TO INFECTIOUS DISEASES Images from the original note were not included. [facility] - Infectious Diseases Attending Consult Note Reason for Consult: 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 History of Present Illness: 64 M with h/o MRSA lumbar epidural abscess from 2021, s/p decompression and fusion, but left paraplegic with neurogenic bladder. Recent hospitlaizaitons for PNA as well as ESBL Proteus UTI/ sepsis recently at [facility]. He had a sacral decubitus ulcer for years, was already improving but worsened since most recent prolonged hospitalization once more in February 2025. Buttock ulcer developed that time as well. Patient stabilized, completed IV antibiotics, and was doing well except at [facility] increased concern for worsening wound infection, [...] Resource Strain: Low Risk (04/24/2023) Received from [facility] Overall Financial Resource Strain (CARDIA) Difficulty [...] to Meropenem Impression: [address] [facility] with: Worsening decubitus ulcer , concerning [...] DECOMPRESSION performed by Opal Vigil MD at [facility] [place] ORTHOPEDIC SURGERY Right removal of hardware [...] infusion 100 mL/hr IntraVENous PRN Alberto Boogie, LUMBER BEARER dextrose 50 % solution 12.5 g 12.5 g IntraVENous PRN Alberto Boogie, TREVOR DULoxetine (Cymbalta) DR capsule 30 mg 30 mg Oral Daily Alberto Boogie, LUMBER BEARER 30 mg at 04/22/25922 ferrous sulfate tablet 325 mg 325 mg Oral Daily with breakfast Alberto Boogie LUMBER BEARER 325 mg at 04/22/25920 glucagon (human recombinant) injection 1 mg 1 mg IntraMUSCular PRN Alberto Boogie, TREVOR glucose oral gel 15 g 15 g Oral PRN Alberto Boogie, LUMBER BEARER insulin glargine (Lantus) injection 45 Units 45 Units SubCUTAneous q AM Alberto Boogie LUMBER BEARER 45 Units at 04/22/25920 Insulin Lispro (Humalog) injection 0-18 Units 0-18 Units SubCUTAneous TID WC Alberto Boogie LUMBER BEARER 9 Units at 04/22/25920 And Insulin Lispro (Humalog) injection 0-18 Units 0-18 Units SubCUTAneous Nightly Alberto Boogie NP [START ON 04/24/2025] lactated Ringer's infusion 100 mL/hr IntraVENous Continuous Cari Ling MD linaGLIPtin (Tradjenta) tablet 5 mg 5 mg Oral Daily Alberto Boogie LUMBER BEARER 5 mg at 04/22/25 0946 meropenem (Merrem) 2,000 mg in sodium chloride 0.9 % 100 mL IVPB 2,000 mg IntraVENous q8h Kerwin Ricci DO midgregoriorine (Proamatine) tablet 10 mg 10 mg Oral TID Alberto Boogie LUMBER BEARER 10 mg at 04/22/25920 mirtazapine (Remeron) tablet 7.5 mg 7.5 mg Oral Nightly Alberto Boogie, TREVOR naloxone (Narcan) nasal spray 4 mg 4 mg Nasal PRN Alberto Boogie, TREVOR ondansetron ODT (Zofran-ODT) disintegrating tablet 4 mg 4 mg Oral q8h PRN Alberto Boogie, LUMBER BEARER Or ondansetron (Zofran) injection 4 mg 4 mg IntraVENous q6h PRN Alberto Boogie, LUMBER BEARER oxyCODONE (Roxicodone) immediate release tablet 15 mg 15 mg Oral 4x daily Alberto Sanchez [place], LUMBER BEARER 15 mg at 04/22/25 0921 polyethylene glycol (PEG) 3350 (Miralax) packet 17 g 17 g Oral BID Ross G [place], LUMBER BEARER 17 g at 04/22/25 0921 polyethylene glycol (PEG) 3350 (Miralax) packet 17 g 17 g Oral Daily PRN Alberto Sanchez [place], LUMBER BEARER pregabalin (Lyrica) capsule 200 mg 200 mg Oral TID Alberto G [place], LUMBER BEARER 200 mg at 04/22/25 0920 senna-docusate sodium (Senokot-S) 8.6-50 MG tablet 2 tablet 2 tablet Oral BID Alberto Miltons, LUMBER BEARER 2 tablet at 04/22/25 0921 sodium chloride 0.9% (NS) flush 10 mL 10 mL IntraCATHeter q12h Alberto G [place], LUMBER BEARER 10 mL at 04/22/25 0634 sodium chloride 0.9% (NS) flush 10 mL 10 mL IntraCATHeter PRN Alberto Sanchez [place], LUMBER BEARER tamsulosin (Flomax) 24 hr capsule 0.4 mg 0.4 mg Oral Daily Alberto Miltons, LUMBER BEARER 0.4 mg at 04/22/25 0922 vancomycin IVPB 1500 mg in 250 mL NS (premix) 1,500 mg IntraVENous q12h Alberto Miltons, LUMBER BEARER [4] No Known Allergies [5] No family history on file. Associated Order(s): IP CONSULT TO GENERAL SURGERY Images from the original note were not included. Department of General Surgery Surgical Service - [facility] Resident Consult Note 04/22/2025 CHIEF COMPLAINT: Chief Complaint Patient presents with Wound Infection Per EMS pt was sent here from [facility] for wound infections. Pt has two wound [...] s/p surgical complication with Dr. Ashley at [facility], HLD, HTN, MDD, OA, a-fib on eliquis, chronic sacral wounds who [facility] after he states the nurses have become [...] Narrative: Patient Name[facility]YNOLDS [facility] 1960 [place] [id number] Exam Date/Time: 04/22/2025 00:01 Procedure: CT PELVIS [...] This note may have been dictated using [facility] Edition 2.6 and/or [employer] Voice Recognition Feature. The document was proofread; however, unrecognized voice recognition veterans contact representative errors may be present. [1] Past Medical [...] DECOMPRESSION performed by Opal Vigil MD at [facility] [place] Right removal of hardware ankle US PLACE URETAL STENT PERC PRE-EXIST TRACT S&I (HISTORICAL) Bilateral 04/14/2024 Dr. Grimm/Bashir [3] Current Facility-Administered Medications Medication Dose Route Frequency Provider Last Rate Last Admin acetaminophen (Tylenol) tablet 650 mg 650 mg Oral q6h PRN Alberto Boogie NP Or acetaminophen (Tylenol) suppository 650 mg 650 mg Rectal q6h PRN Alberto Sanchez TREVOR Boogie [Held by provider] apixaban (Eliquis) tablet 5 mg 5 mg Oral BID Alberto Sanchez TREVOR Boogie bisacodyl (Dulcolax) EC tablet 5 mg 5 mg Oral Daily PRN Alberto Sanchez TREVOR Boogie bisacodyl (Dulcolax) suppository 10 mg 10 mg Rectal Daily PRN Alberto Sanchez Keagan, TREVOR calcium carbonate (Tums) chewable tablet 1,000 mg 1,000 mg Oral q8h PRN Alberto Sanchez TREVOR Boogie cefepime (Maxipime) 2,000 mg in sodium chloride 0.9 % 50 mL IVPB Mini-Bag Plus 2,000 mg IntraVENous q8h Alberto Sanchez TREVOR Boogie cyclobenzaprine (Flexeril) tablet 10 mg 10 mg Oral TID PRN Alberto Sanchez [place], TREVOR dextrose 5 % infusion 100 mL/hr IntraVENous PRN Alberto Daniel Boogie NP dextrose 50 % solution 12.5 g 12.5 g IntraVENous PRN Alberto Sanchez [place], TREVOR DULoxetine (Cymbalta) DR capsule 30 mg 30 mg Oral Daily Alberto Sanchez [place], TREVOR ferrous sulfate tablet 325 mg 325 mg Oral Daily with breakfast Alberto Boogie NP glucagon (human recombinant) injection 1 mg 1 mg IntraMUSCular PRN Alberto Boogie, LUMBER BEARER glucose oral gel 15 g 15 g Oral PRN Alberto Miltons, LUMBER BEARER insulin glargine (Lantus) injection 45 Units 45 Units SubCUTAneous q AM Alberto Boogie, LUMBER BEARER Insulin Lispro (Humalog) injection 0-18 Units 0-18 Units SubCUTAneous TID WC Alberto Miltons, LUMBER BEARER And Insulin Lispro (Humalog) injection 0-18 Units 0-18 Units SubCUTAneous Nightly Alberto Boogie, LUMBER BEARER linaGLIPtin (Tradjenta) tablet 5 mg 5 mg Oral Daily Alberto Miltons, LUMBER BEARER midodrine (Proamatine) tablet 10 mg 10 mg Oral TID Alberto Miltons, LUMBER BEARER mirtazapine (Remeron) tablet 7.5 mg 7.5 mg Oral Nightly Alberto Miltons, LUMBER BEARER naloxone (Narcan) nasal spray 4 mg 4 mg Nasal PRN Alberto Boogie, LUMBER BEARER ondansetron ODT (Zofran-ODT) disintegrating tablet 4 mg 4 mg Oral q8h PRN Alberto Boogie, LUMBER BEARER Or ondansetron (Zofran) injection 4 mg 4 mg IntraVENous q6h PRN Alberto Boogie, LUMBER BEARER oxyCODONE (Roxicodone) immediate release tablet 15 mg 15 mg Oral 4x daily Alberto Boogie, LUMBER BEARER polyethylene glycol (PEG) 3350 (Miralax) packet 17 g 17 g Oral BID Alberto Boogie, LUMBER BEARER polyethylene glycol (PEG) 3350 (Miralax) packet 17 g 17 g Oral Daily PRN Alberto Boogie, LUMBER BEARER pregabalin (Lyrica) capsule 200 mg 200 mg Oral TID Alberto Boogie, LUMBER BEARER senna-docusate sodium (Senokot-S) 8.6-50 MG tablet 2 tablet 2 tablet Oral BID Alberto Miltons, LUMBER BEARER tamsulosin (Flomax) 24 hr capsule 0.4 mg 0.4 mg Oral Daily Alberto Miltons, LUMBER BEARER vancomycin IVPB 1500 mg in 250 mL NS (premix) 1,500 mg IntraVENous q12h Alberto Boogie, LUMBER BEARER [4] Social History Socioeconomic History Marital status: [...] Resource Strain: Low Risk (04/24/2023) Received from [facility] Overall Financial Resource Strain (CARDIA) Difficulty [...] of Trauma Department of Surgery [facility] [1] Patient Active Problem List Diagnosis [...] creatinine, and vancomycin levels interfaced automatically to [employer]social and data has been analyzed and interpreted. [...] via Secure Chat documented in this encounter [facility] 04-22-2025 Note Hospitalist Progress Note 04/22/2025 [...] intensive monitoring: parenteral (more content not included)... [facility] 04-22-2025 Plan of care note Problem: [...] monitored and maintained or improved Outcome: Progressing [facility] 04-22-2025 Note Pharmacy to Dose Van comycin - Progress Note Lab Results Component Value Date CREATININE 0.65 (L) 04/21/2025 BUN 10 04/21/2025 WBC 12.5 (H) 04/21/2025 VANCORANDOM 12.3 (L) 04/16/2024 VANCOTROUGH 12.4 04/22/2025 Doses, serum creatinine, and vancomycin levels interfaced automatically to [employer] and data has been analyzed and interpreted. [...] PharmD Clinical Pharmacist Available via Secure Chat [facility] 04-22-2025 Plan of care note Problem: [...] monitored and maintained or improved Outcome: Progressing [facility] 04-22-2025 Consult note Associated Order (s): IP CONSULT TO GENERAL SURGERY Images from the original note were not included. Department of General Surgery Surgical Service - [facility] Resident Consult Note 04/22/2025 CHIEF COMPLAINT: Chief Complaint Patient presents with Wound Infection Per EMS pt was sent here from the [facility] for wound infections. Pt has two wound [...] s/p surgical complication with Dr. Ashley at [facility], HLD, HTN, MDD, OA, a-fib on eliquis, chronic sacral wounds who presents from his [facility] after he states the nurses have become [...] This note may have been dictated using Blackboard Practice Edition 2.6 and/or [employer] Voice Recognition Feature. The document was proofread; however, unrecognized voice recognition veterans contact representative errors may be present. [1] Past Medical [...] DECOMPRESSION performed by Opal Vigil MD at [facility] [place]IC [place]GERY Right removal of hardware [...] 12.5 g 12.5 g IntraVENous PRN Alberto Powellvins, LUMBER BEARER DULoxetine (Cymbalta) DR capsule 30 mg 30 mg Oral Daily Alberto Sanchez [place], LUMBER BEARER ferrous sulfate tablet 325 mg 325 mg Oral Daily with breakfast Alberto Miltons, LUMBER BEARER glucagon (human recombinant) injection 1 mg 1 mg IntraMUSCular PRN Alberto Miltons, LUMBER BEARER glucose oral gel 15 g 15 g Oral PRN Alberto Sanchez [place], LUMBER BEARER insulin glargine (Lantus) injection 45 Units 45 Units SubCUTAneous q AM Alberto Miltons, LUMBER BEARER Insulin Lispro (Humalog) injection 0-18 Units 0-18 Units SubCUTAneous TID WC Alberto G [place], LUMBER BEARER And Insulin Lispro (Humalog) injection 0-18 Units 0-18 Units SubCUTAneous Nightly Alberto Miltons, LUMBER BEARER linaGLIPtin (Tradjenta) tablet 5 mg 5 mg Oral Daily Alberto Sanchez [place], LUMBER BEARER midodrine (Proamatine) tablet 10 mg 10 mg Oral TID Alberto Miltons, LUMBER BEARER mirtazapine (Remeron) tablet 7.5 mg 7.5 mg Oral Nightly Alberto Snachez [place], LUMBER BEARER naloxone (Narcan) nasal spray 4 mg 4 mg Nasal PRN Alberto Miltons, LUMBER BEARER ondansetron ODT (Zofran-ODT) disintegrating tablet 4 mg 4 mg Oral q8h PRN Alberto Miltons, LUMBER BEARER Or ondansetron (Zofran) injection 4 mg 4 mg IntraVENous q6h PRN Alberto Miltons, LUMBER BEARER oxyCODONE (Roxicodone) immediate release tablet 15 mg 15 mg Oral 4x daily Alberto Sanchez [place], LUMBER BEARER polyethylene glycol (PEG) 3350 (Miralax) packet 17 g 17 g Oral BID Alberto Sanchez [place], LUMBER BEARER polyethylene glycol (PEG) 3350 (Miralax) packet 17 g 17 g Oral Daily PRN Alberto Miltons, LUMBER BEARER pregabalin (Lyrica) capsule 200 mg 200 mg Oral TID Alberto Miltons, LUMBER BEARER senna-docusate sodium (Senokot-S) 8.6-50 MG tablet 2 tablet 2 tablet Oral BID Alberto G [place], LUMBER BEARER tamsulosin (Flomax) 24 hr capsule 0.4 mg 0.4 mg Oral Daily Alberto G [place], LUMBER BEARER vancomycin IVPB 1500 mg in 250 mL [...] Resource Strain: Low Risk (04/24/2023) Received from [facility] Overall Financial Resource Strain (CARDIA) Difficulty [...] []Other Discussed/ With: [x]Patient/Family [x]RN []Consultants [x]Primary []/[facility] []Other I spent total time of 60 [...] of Trauma Department of Surgery [facility] [1] Patient Active Problem List Diagnosis [...] blood cultures Other acute osteomyelitis, other site ([facility]) [facility] 04-22-2025 Consult note Formatting of th [...] creatinine, and vancomycin levels interfaced automatically to [employer]social and data has been analyzed and interpreted. [...] Clinical Pharmacist Available via Secure Chat T [facility] [employer] 04-22-2025 History and physical note Attending History and Physical Admit Date: 04/21/2025 PCP: Tab Dupont CHIEF COMPLAINT: Wound infection Reason for Admission: Osteomyelitis History Obtained From: patient HISTORY OF PRESENT ILLNESS: Anmol is a 64 y.o. male with past medical history below who presents with chief complaint listed above. Patient sent to [facility] staff to leave the patient's wounds on his sacrum were worsening and becoming infected. Patient is a paraplegic for the last 4 years after surgical complication with Dr. Ashley at [facility]. ER workup was significant for [...] he normally does but states that the [facility] felt like his wounds were getting worse [...] Resource Strain: Low Risk (04/24/2023) Received from [facility] Overall Financial Resource Strain (CARDIA) Difficulty of Paying Living Expenses: Not hard at all Food Insecurity: No Food Insecurity (02/17/2025) Received from [facility] Hunger Vital Sign Worried About Running Out of Food in the Last Year: Never true Ran Out of Food in the Last Year: Never true Transportation Needs: No Transportation Needs (02/17/2025) Received from [facility] PRAPARE - Transportation Lack of Transportation (Medical): No Lack of Transportation (Non-Medical): No Physical Activity: Not on file Stress: Not on file Social Connections: Not on file Intimate Partner Violence: Not At Risk (05/18/2024) Humiliation, Afraid, Rape, and Kick questionnaire Fear of Current or Ex-Partner: No Emotionally Abused: No Physically Abused: No Sexually Abused: No Housing Stability: Unknown (02/17/2025) Received from [facility] Housing Stability Vital Sign Unable to [...] - DO NOT do CPR, intubation] [_] [DNR-HAND SINGER - Comfort care only] [_] DNR form [...] DECOMPRESSION performed by Opal Vigil MD at [facility] [place]TH[place]IC SURGERY Right removal of hardware [...] treatment as noted above. Mike Bueno MD [facility] [employer] Phone: 04-22-2025 Note Attestation signed by Georgette [...] chief complaint listed above. Patient sent to [facility] staff to leave the patient's wounds on his sacrum were worsening and becoming infected. Patient is a paraplegic for the last 4 years after surgical complication with Dr. Ashley at [facility]. ER workup was significant for [...] he normally does but states that the [facility] felt like his wounds were getting worse [...] Resource Strain: Low Risk (04/24/2023) Received from [facility] Overall Financial Resource Strain (CARDIA) Difficulty of Paying Living Expenses: Not hard at all Food Insecurity: No Food Insecurity (02/17/2025) Received from [facility] Hunger Vital Sign Worried About Running Out of Food in the Last Year: Never true Ran Out of Food in the Last Year: Never true Transportation Needs: No Transportation Needs (02/17/2025) Received from [facility] PRAPARE - Transportation Lack of Transportation (Medical): No Lack of Transportation (Non-Medical): No Physical Activity: Not on file Stress: Not on file Social Connections: Not on file Intimate Partner Violence: Not At Risk (05/18/2024) Humiliation, Afraid, Rape, and Kick questionnaire Fear of Current or Ex-Partner: No Emotionally Abused: No Physically Abused: No Sexually Abused: No Housing Stability: Unknown (02/17/2025) Received from [facility] Housing Stability Vital Sign Unable to [...] Normal rate a (more content not included)... [facility] 04-22-2025 History and physical note Attending History and Physical Admit Date: 04/21/2025 PCP: Tab Dupont CHIEF COMPLAINT: Wound infection Reason for Admission: Osteomyelitis History Obtained From: patient HISTORY OF PRESENT ILLNESS: Anmol is a 64 y.o. male with past medical history below who presents with chief complaint listed above. Patient sent to [facility] staff to leave the patient's wounds on his sacrum were worsening and becoming infected. Patient is a paraplegic for the last 4 years after surgical complication with Dr. Ashley at [facility]. ER workup was significant for [...] he normally does but states that the [facility] felt like his wounds were getting worse [...] Resource Strain: Low Risk (04/24/2023) Received from [facility] Overall Financial Resource Strain (CARDIA) Difficulty of Paying Living Expenses: Not hard at all Food Insecurity: No Food Insecurity (02/17/2025) Received from [facility] Hunger Vital Sign Worried About Running Out of Food in the Last Year: Never true Ran Out of Food in the Last Year: Never true Transportation Needs: No Transportation Needs (02/17/2025) Received from [facility] PRAPARE - Transportation Lack of Transportation (Medical): No Lack of Transportation (Non-Medical): No Physical Activity: Not on file Stress: Not on file Social Connections: Not on file Intimate Partner Violence: Not At Risk (05/18/2024) Humiliation, Afraid, Rape, and Kick questionnaire Fear of Current or Ex-Partner: No Emotionally Abused: No Physically Abused: No Sexually Abused: No Housing Stability: Unknown (02/17/2025) Received from [facility] Housing Stability Vital Sign Unable to [...] - DO NOT do CPR, intubation] [_] [DNR-HAND SINGER - Comfort care only] [_] DNR form [...] DECOMPRESSION performed by Opal Vigil MD at [facility] [place]IC [place]GERY Right removal of hardware [...] Mike Bueno MD documented in this encounter [facility] 04-21-2025 Emergency department Note Placed new meplix pads on open wounds on sacrum. Pictures updated in pt's chart. [facility] 04-21-2025 Emergency department Note Placed new meplix pads on open wounds on sacrum. Pictures updated in pt's chart. EMERGENCY DEPARTMENT ENCOUNTER Pt Name: Anmol Reynolds Birthdate 1960 Date of evaluation: 04/21/2025 ED Provider: Chele León MD CHIEF COMPLAINT Chief Complaint Patient presents with Wound Infection Per EMS pt was sent here from the [facility] for wound infections. Pt has two wound [...] Family History[3] SOCIAL HISTORY Social History[4] SCREENINGS [place] Coma Scale Best Eye Response: Spontaneous Best [...] Procedure Abnormality Status --------- ------ Culture, Aerobic Bacteri...[[id number]] Abnormal Preliminary result Anaerobic culture[[id number]] In process Please view results for these [...] DECOMPRESSION performed by Opal Vigil MD at [facility] [place]THOPEDIC SURGERY Right removal of hardware [...] Resource Strain: Low Risk (04/24/2023) Received from [facility] Overall Financial Resource Strain (CARDIA) Difficulty of Paying Living Expenses: Not hard at all Food Insecurity: No Food Insecurity (02/17/2025) Received from [facility] Hunger Vital Sign Worried About Running Out of Food in the Last Year: Never true Ran Out of Food in the Last Year: Never true Transportation Needs: No Transportation Needs (02/17/2025) Received from [facility] PRAPARE - Transportation Lack of Transportation (Medical): No Lack of Transportation (Non-Medical): No Intimate Partner Violence: Not At Risk (05/18/2024) Humiliation, Afraid, Rape, and Kick questionnaire Fear of Current or Ex-Partner: No Emotionally Abused: No Physically Abused: No Sexually Abused: No Housing Stability: Unknown (02/17/2025) Received from [facility] Housing Stability Vital Sign Unable to Pay for Housing in the Last Year: No Homeless in the Last Year: No Chele León MD Resident 04/22/25 0219 Cosigned by Brad Campos MD at 04/22/2025 2:22 AM EDT documented in this encounter [facility] 04-21-2025 Physician Emergency department Note EMERGENCY DEPARTMENT ENCOUNTER Pt Name: Anmol Reynolds Birthdate 1960 Date of evaluation: 04/21/2025 ED Provider: Chele León MD CHIEF COMPLAINT Chief Complaint Patient presents with Wound Infection Per EMS pt was sent here from the [facility] for wound infections. Pt has two wound [...] Family History[3] SOCIAL HISTORY Social History[4] SCREENINGS [place] Coma Scale Best Eye Response: Spontaneous Best Verbal Response: Oriented Best Motor Response: Follows commands [place] Coma Scale Score: 15 PHYSICAL EXAM ED [...] Procedure Abnormality Status --------- ------ Culture, Aerobic Bacteri...[[id number]] Abnormal Preliminary result Anaerobic culture[[id number]] In process Please view results for these [...] received IV vancomycin, IV cefepime for coverage. [facility] hospitalist was consulted for admission [...] DECOMPRESSION performed by Opal Vigil MD at [facility] [place]THOPEDIC SURGERY Right removal of hardware [...] Resource Strain: Low Risk (04/24/2023) Received from [facility] Overall Financial Resource Strain (CARDIA) Difficulty of Paying Living Expenses: Not hard at all Food Insecurity: No Food Insecurity (02/17/2025) Received from [facility] Hunger Vital Sign Worried About Running Out of Food in the Last Year: Never true Ran Out of Food in the Last Year: Never true Transportation Needs: No Transportation Needs (02/17/2025) Received from [facility] PRAPARE - Transportation Lack of Transportation (Medical): No Lack of Transportation (Non-Medical): No Intimate Partner Violence: Not At Risk (05/18/2024) Humiliation, Afraid, Rape, and Kick questionnaire Fear of Current or Ex-Partner: No Emotionally Abused: No Physically Abused: No Sexually Abused: No Housing Stability: Unknown (02/17/2025) Received from [facility] Housing Stability Vital Sign Unable to Pay for Housing in the Last Year: No Homeless in the Last Year: No Chele León MD Resident 04/22/25 0219 Cosigned by Brad Campos MD at 04/22/2025 2:22 AM EDT [facility] 04-21-2025 Physician Emergency department Note Patient: [...] ago. States that he is at a [facility] and they were concerned that his wounds [...] EMS pt was sent here from the [facility] for wound infections. Pt has two wound [...] Procedure Abnormality Status --------- ------ Culture, Aerobic Bacteri...[[id number]] Abnormal Preliminary result Anaerobic culture[[id number]] In process Please view results for these [...] DECOMPRESSION performed by Opal Vigil MD at [facility] [place] ORTHOPEDIC SURGERY Right removal of hardware [...] Resource Strain: Low Risk (04/24/2023) Received from [facility] Overall Financial Resource Strain (CARDIA) Difficulty of Paying Living Expenses: Not hard at all Food Insecurity: No Food Insecurity (02/17/2025) Received from [facility] Hunger Vital Sign Worried About Running Out of Food in the Last Year: Never true Ran Out of Food in the Last Year: Never true Transportation Needs: No Transportation Needs (02/17/2025) Received from [facility] PRAPARE - Transportation Lack of Transportation (Medical): No Lack of Transportation (Non-Medical): No Intimate Partner Violence: Not At Risk (05/18/2024) Humiliation, Afraid, Rape, and Kick questionnaire Fear of Current or Ex-Partner: No Emotionally Abused: No Physically Abused: No Sexually Abused: No Housing Stability: Unknown (02/17/2025) Received from [facility] Housing Stability Vital Sign Unable to Pay for Housing in the Last Year: No Homeless in the Last Year: No Brad Campos MD 04/22/25 0201 [employer] Phone: 03-24-2025 Telephone encounter Note Per op note pt should get a renal US in [address]. [address] the order? [facility] 03-24-2025 Miscellaneous Notes Per op note pt should get a renal US in [address] the order? documented in this encounter [facility] 03-20-2025 Note HNO ID: [id number] Author: JAX AVLENZUELA APRN.VENDING MACHINE COLLECTOR Service: Anesthesiology Author Type: Nurse Education Intern Type: Anesthesia Procedure Notes Filed: 03/20/2025 10:33 [...] March 20, 2025 TIME: 10:32 AM CSN: [id number] [facility] 03-20-2025 Note HNO ID: [id number] Author: JAX VALENZUELA APRN.VENDING MACHINE COLLECTOR Service: Anesthesiology Author Type: Nurse Education Intern Type: Anesthesia Procedure Notes Filed: 03/20/2025 10:32 Note Text: ANESTHESIOLOGY PROCEDURE NOTE Airway General Information Procedure Start Time/Medication Administration: 03/20/2025 10:27 AM Procedure End Time: 03/20/2025 10:27 AM Patient location during procedure: OR Consent Obtained: Yes Patient identity confirmed: arm band and patient Staffing VENDING MACHINE COLLECTOR: Jax Valenzuela APRN.VENDING MACHINE COLLECTOR Performed by: BENJA Indications and Patient Condition [...] March 20, 2025 TIME: 10:32 AM CSN: [id number] [facility] 03-15-2025 Telephone encounter Note Spoke to nursing facility who states Pt is going to proceed with surgery at [facility]. [facility] 03-15-2025 Miscellaneous Notes Spoke to nursing facility who states Pt is going to proceed with surgery at [facility]. Left message for Pts nurse to call me back. Can you call [facility] and see if they are going to send disc to us? Or if patient still scheduled for procedure at [facility]. [facility] number: [phone] Still need disc with images. Will need to review with Dr. Grimm. Is it OK to get Pt scheduled for surgery? Please advise. Talked to staff from [facility] that patient would like to have procedure at [facility]. Requested that CD with images from [facility] be sent to the [facility] urology. Staff will let [facility] know- she does scheduling/arranges procedures for residents. [facility] number: [phone] documented in this encounter [facility] 03-15-2025 Telephone encounter Note Left message for Pts nurse to call me back. [facility] 03-14-2025 Note HNO ID: [id number] Author: MILAD GOODSON MD Service: ? Author Type: Physician Type: Progress Notes Filed: 03/20/2025 10:37 Note Text: INFECTIOUS DISEASE WOUND CENTER NOTE Patient Name: Anmol Reynolds Date: 03/14/2025 ASSESSMENT: Worsening ischial wound post hospitalization at [facility] recently Chronic sacral S5 segment chronic [...] clinical infection in the area Wound center RN DIABETES follow up in 1 week INTERVAL HISTORY: ROS done with pt and negative unless stated. Was recently admitted to [facility] and needed intubation and ventilation. Since [...] 11/25/2021 8 09/06/2021 (more content not included)... [facility] 03[facility] History of Present illness Narrative Images from the original note were not included. INFECTIOUS DISEASE WOUND CENTER NOTE Patient Name: Anmol Reynolds Date: 03/14/2025 ASSESSMENT: Worsening ischial wound post hospitalization at [facility] recently Chronic sacral S5 segment chronic [...] clinical infection in the area Wound center RN DIABETES follow up in 1 week INTERVAL HISTORY: ROS done with pt and negative unless stated. Was recently admitted to [facility] and needed intubation and ventilation. Since [...] with multiple staff Home Care Company/Nursing Facility: [facility] Consent captured for debridement per (Provider) and good until Special Instructions (for example, patient stands at the bedside for exam/dressing): bed Anticoagulant Therapy: Eliquis Living Situation (ie... [facility] facility [...] BY PROVIDER: Anesthetic Used: N/A applied per clerical secretary # 1 & 2 Other procedure: Specimen [...] order date DME: [employer] , PH: [phone] SPECIAL NEEDS: [facility]ax [facility] [phone] Emotional support N/A OR set-up N/A Stoker Installation Mechanic N/A Incontinence needs N/A DISCHARGED in stable [...] be drawn PARI and results faxed to [facility] [phone] Stop smoking EDUCATION: The patient/family was instructed [...] the [facility] documented in this encounter [facility] 03-14-2025 Instructions Dawood Tiwari RN - 03/14/2025 2:16 PM EDT WOUND CARE INSTRUCTIONS- Anmol Reynolds Wound location: sacrum & left ischium [facility]: -Gather supplies -Place down [...] following changes to the Wound Center at [phone] or go to the Emergency Department: Fever or chills Increased drainage Green or yellow drainage Foul odor Increased pain Hardness around the wound Redness, warmth or swelling of the surrounding tissue Color change to the wound When contacting the wound center at the ([phone]): Leave a message that includes your full [...] be drawn PARI and results faxed to [facility] [phone] Stop smoking Milad Goodson MD/mjmina/lt documented in this encounter [facility] 03-14-2025 Note HNO ID: [id number] Author: DAWOOD TIWARI RN Service: ? Author Type: Registered Nurse Type: Progress Notes Filed: 03/14/2025 14:54 Note Text: Nursing Documentation Pertinent Medical History: paraplegia, MRSA, osteomyelitis, UTI, DM2, neuropathy, pyelonephritis, Wound Etiology according to patient: sacrum wound has had for four years per pt Patient arrived via: self in motorized wheelchair - patient is a [place] with multiple staff Home Care [facility]/Nursing [facility] Consent captured for debridement per (Provider) and good until Special Instructions (for example, patient stands at the bedside for exam/dressing): bed Anticoagulant Therapy: Eliquis Living Situation (ie... Apartment, house, [facility] Who [facility] with patient: facility [...] BY PROVIDER: Anesthetic Used: N/A applied per clerical secretary # 1 AND 2 Other procedure: Specimen [...] order date DME: [employer] , PH: [phone] SPECIAL NEEDS: EFax orders to [facility] [phone] Emotional support N/A OR set-up N/A Stoker Installation Mechanic N/A Incontinence needs N/A DISCHARGED in stable [...] be drawn PARI and results faxed to [facility] [phone] Stop smoking EDUCATION: The patient/family was instructed [...] had radiation therapy (more content not included)... [facility] 03-14-2025 Note Can you call jas ochoa and see if they are going to send disc to us? Or if patient still scheduled for procedure at [facility]. Tierra Delvalle number: [phone] [facility] 03-14-2025 Telephone encounter Note Can you call [facility] and see if they are going to send disc to us? Or if patient still scheduled for procedure at [facility]. [facility] [place] number: [phone] [facility] Work Phone: 03-14-2025 Miscellaneous Notes Can you call [facility] and see if they are going to send disc to us? Or if patient still scheduled for procedure at [facility]. [facility] [place] number: [phone] Still need disc with images. Will need to review with Dr. Grimm. Is it OK to get Pt scheduled for surgery? Please advise. Talked to staff from [facility] that patient would like to have procedure at [facility]. Requested that CD with images from [facility] be sent to the [facility] urology. Staff will let Farideh know- she does scheduling/arranges procedures for residents. [facility] [place] number: [phone] documented in this encounter [facility] 03-13-2025 Telephone encounter Note Still need disc with images. Will need to review with Dr. Grimm. [facility] Work Phone: 03-13-2025 Miscellaneous Notes Still need disc with images. Will need to review with Dr. Grimm. Is it OK to get Pt scheduled for surgery? Please advise. Talked to staff from [facility] that patient would like to have procedure at [facility]. Requested that CD with images from [facility] be sent to the [facility]rology. Staff will let Farideh know- she does scheduling/arranges procedures for residents. [facility] number: [phone] documented in this encounter [facility] 03-13-2025 Telephone encounter Note Is it OK to get Pt scheduled for surgery? Please advise. [facility] 03-08-2025 Telephone encounter Note Patient is scheduled and [facility] was notified. Information was faxed. Comfort Sotelo [facility] 03-08-2025 Miscellaneous Notes Patient is scheduled and [facility] was notified. Information was faxed. Comfort Sotelo Needs outpt cysto, pyelograms, bilateral stent change vs removal in 2-3 weeks. documented in this encounter [facility] 03-07-2025 Note Talked to staff from [facility] that patient would like to have procedure at [facility]. Requested that CD with images from [facility] be sent to the [facility]. Staff will let Farideh know- she does scheduling/arranges procedures for residents. [facility] [place] number: [phone] [facility] 03-07-2025 Telephone encounter Note Talked to staff from [facility] that patient would like to have procedure at [facility]. Requested that CD with images from [facility] be sent to the [facility]. Staff will let Farideh know- she does scheduling/arranges procedures for residents. [facility] [place] number: [phone] [facility] 03-07-2025 Miscellaneous Notes Talked to staff from [facility] that patient would like to have procedure at [facility]. Requested that CD with images from [facility] be sent to the [facility]. Staff will let Farideh know- she does scheduling/arranges procedures for residents. [facility] [phone] documented in this encounter [facility] 03-07-2025 History of Present illness Narrative Images from the original note were not included. JOE Burks CNP 03/07/2025 9:15 AM Urology Office Visit [facility] [address], [address] [facility] [id number] PATIENT NAME: Anmol Franco Given DATE OF [...] negative rods. Treated. Follow up outpatient with [facility] urology Patient is scheduled for surgery w Dr Maria on 03/20/25 however he prefers treatment at [facility] Will need images for surgery [...] 8. Details above. 9. Follow-up as indicated. Valet Parking Attendant: CECILIA Transcribe Date/Time: Feb 16 2025 10:02P Dictated by : CORBIN PERRY MD This examination was interpreted and the report reviewed and electronically signed by: CORBIN PERRY MD on Feb 16 2025 10:34PM EST Narrative * * *Final Report* * * DATE OF EXAM: Feb 16 2025 8:33PM [facility] 0530 - CT ABD/PEL W IVCON / [...] pubis. Coronal and sagittal reconstructed images generated. : CTAP_3 Contrast: IV: 100 ml of Omnipaque [...] Follow up: No follow-ups on file. Yoana Solitario APRN - PROPOSAL ENGINEER [facility] U[facility] Please note that portions of this chart were dictated using [employer] electronic voice recognition software. It is possible [...] DECOMPRESSION performed by Opal Vigil MD at [facility] [place]THOPEDIC SURGERY Right removal of hardware ankle US PLACE URETAL STENT PERC PRE-EXIST TRACT S&I (HISTORICAL) Bilateral 04/14/2024 Dr. Grimm/Bashir [3] No Known Allergies documented in this encounter [facility] 03-07-2025 Instructions JOE Burks CNP - 03/07/2025 9:00 AM EDT Need images from [facility] on disc brought to office for review in order for patient to have ureteral stent treatment at [facility]. Patient prefers [facility]. CT abdomen/pelvis 02/16/25 XR abdomen 02/16/25 and 02/17/25 Planning for ESWL vs laser litho w stent exchange. documented in this encounter [facility] 02-22-2025 Note HNO ID: [id number] Author: JESSICA CLEMENT cathy Service: Pharmacy Author Type: Pharmacist Type: Plan [...] time from discharge medication list. Jessica Clement [facility] Pager: [phone] 02/22/2025 3:26 PM Medication List START taking [...] 100 unit/mL solution Generic drug: insulin glargine-yfgn [facility] 02-22-2025 Note HNO ID: [id number] Author: ANDREA PALENCIA RN Service: Care Management Author Type: Registered Nurse Type: Care Mgt Progress Note Filed: 02/22/2025 15:26 Note Text: CARE MANAGEMENT DISCHARGE NOTE SERVICE DATE: February 22, 2025 SERVICE TIME: 3:24 PM Admission Date: 02/16/2025 LOS: 5 days Discharge Arrangement Discharge Arrangement: Extended Care Facility Services Arranged Provider Name: [facility] Caregiver Assessment Caregiver is ready, willing and able to meet the patient's needs as recommended by the inter-professional team: Yes Name of Caregiver: Facility staff Transportation Arrangements Transportation Arrangements: Ambulance Transportation Agency and Phone #:: [facility] ( [facility] ) [phone] / [phone] Date of Trip: 02/22/25 Time of Trip: 1999 Type of Service: BLS Non-emergency Is Patient Medicaid Pending?: No Was transportation financial coverage discussed with family?: Patient Comfort Advisor Location: [facility] Destination: Return to [facility] Financial Care Management Responsibility: None Handoff Communication: Additional Information: Met with pt and he is agreeable to return to [facility]. Will D/C today at 8 pm via cot with [employer] D/C paperwork sent electronically and RN to call N2N report. Pt stated he called his brother re: the D/C and time of return to [facility]. SIGNATURE: Andrea Palencia RN PATIENT NAME: Anmol Given DATE: February 22, 2025 TIME: 3:24 PM [facility] 02-22-2025 Note HNO ID: [id number] Author: ANDREA PALENCIA RN Service: Care Management Author Type: Registered Nurse Type: Care Mgt Progress Note Filed: 02/22/2025 15:22 Note Text: CARE MANAGEMENT PROGRESS NOTE SERVICE DATE: 02/22/2025 SERVICE TIME: 3:22 PM LOS: 5 days IMM Follow Up Copy Given: Yes Copy given to:: Patient Cover Machine Operator Name/Relationship: Daughter Sumi Method: In Person Met with pt in room and explained the IMM, he states he understands. He is agreeable to D/C. SIGNATURE: Andrea Palencia RN PATIENT NAME: Anmol Given DATE: February 22, 2025 TIME: 3:22 PM [facility] 02-22-2025 Note HNO ID: [id number] Author: ANDREA PALENCIA RN Service: Care Management Author Type: Registered Nurse Type: Care Mgt Progress Note Filed: 02/22/2025 13:53 Note Text: CARE MANAGEMENT PROGRESS NOTE SERVICE DATE: 02/22/2025 SERVICE TIME: 1:53 PM LOS: 5 days IMM Follow Up Copy Given: Yes Copy given to:: Patient Cover Machine Operator Cover Machine Operator Name/Relationship: Daughter Sumi Method: By Phone SIGNATURE: Andrea Palencia RN PATIENT NAME: Anmol Given DATE: February 22, 2025 TIME: 1:53 PM [facility] 02-21-2025 Note HNO ID: [id number] Author: ANDREA PALENCIA RN Service: Care Management Author Type: Registered Nurse Type: Care Mgt Progress Note Filed: 02/21/2025 15:41 Note Text: CARE MANAGEMENT PROGRESS NOTE SERVICE DATE: 02/21/2025 SERVICE TIME: 3:39 PM LOS: 4 days D/C plan to return To [facility] when medically ready. D/C packet created and will need cot transport when ready. SIGNATURE: Andrea Palencia RN PATIENT NAME: Anmol Given DATE: February 21, 2025 TIME: 3:39 PM [facility] 02-21-2025 Note HNO ID: [id number] Author: BRIA SHER MD Service: Hospital Medicine Author Type: Physician Type: Progress Notes Filed: 02/21/2025 13:23 Note Text: DEPARTMENT OF HOSPITAL MEDICINE Hospital Medicine/Primary Attending: Bria Sher MD NIGHT AND WEEKEND COVERAGE: After 7pm please page [phone] MEDICATIONS: Current Facility-Administered Medications Medication Dose Route [...] 0.64* 1.04 1.90* 2.35* CHEM: Recent Labs 02/21/2545302/20/25 0539 02/19/2541802/18/2541902/17/2522402/16/251921 ALB 2.5* 2.3* 2.3* 2.3* [...] NTND, bowel sounds (more content not included)... [facility] 02-20-2025 Note HNO ID: [id number] Author: YOANA OROSCO, LIBRADO Service: ? Author Type: Registered Nurse Type: Nursing Progress Note Filed: 02/20/2025 18:07 Note Text: Other: Report called to 4100 RN. [facility] 02-20-2025 Note HNO ID: [id number] Author: GAYLE SCOTT MD Service: Infectious Disease [...] to urology. 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 Spinal cord injury residing at [facility], presented to [facility] 02/16/2025 for unresponsiveness when normally alert and [...] that although [facility] not [facility] she was called and told he was [...] PRN Or d (more content not included)... [facility] 02-20-2025 Note HNO ID: [id number] Author: PENNY VILLASEÑOR RN Service: Care Management Author Type: Registered Nurse Type: Care Mgt Progress Note Filed: 02/20/2025 16:13 Note Text: CARE MANAGEMENT PROGRESS NOTE SERVICE DATE: 02/20/2025 SERVICE TIME: 4:11 PM LOS: 3 days Needs Prior to Discharge: Discharge Transportation DC plan: [facility] [place]. Pt is LTC and a bed hold. Updates to facility. Met with pt and provided update. Pt agreeable to return. SIGNATURE: Penny Villaseñor RN PATIENT NAME: Anmol Given DATE: February 20, 2025 TIME: 4:11 PM [facility] 02-20-2025 Note HNO ID: [id number] Author: ELIZABETH SOLER MD Service: Critical Care Author Type: Physician Type: Progress Notes Filed: 02/20/2025 13:05 Note Text: [facility] STAFF PHYSICIAN NOTE OF PERSONAL INVOLVEMENT IN CARE I have reviewed the documentation by the resident/ AALIYAH and I personally participated in the thomas components. I have discussed the case and management of the patient's care. The following comments revise or confirm relevant thomas components of the note. 64 y/o M with extensive medical hx who [facility]. In the ED, was obtunded [...] improves Urology input appreciated, follow up at [facility] urology Remains off of amiodarone, [...] [facility] TIME of SERVICE: 8:32 AM [facility] 02-20-2025 Note HNO ID: [id number] Author: ELIZABETH SOLER MD Service: Critical Care [...] hematuria The patient initially presented to the [facility] ED on February 16, 2025 [facility] MICU was consulted for septic shock, [...] recommended patient to follow-up with urology at the [facility]. Patient was extubated on 02/17 successfully. [...] -- 4.0 COAG: Recent Labs 02/19/25 1051 05/18/41802/18/25201102/18/25 1300 02/18/25 0643 02/18/25 0021 02/17/25 1728 [...] Value Units Date/Time Respiratory Culture and Stain [[id number]] (Abnormal) (Susceptibility) Collected: 02/17/25 1010 Order Status: [...] Resistant Vancomycin S (more content not included)... [facility] 02-19-2025 Note HNO ID: [id number] Author: GAYLE SCOTT MD Service: Infectious Disease Author Type: Physician Type: Plan of Care Filed: 02/19/2025 18:36 Note Text: ID Continuing meropenem due to multiple gram-negative's and Enterococcus faecalis in blood and urine culture Gayle Scott MD 02/19/2025 6:[address] [facility] 4195 [facility] 02-19-2025 Telephone encounter Note Needs outpt cysto, pyelograms, bilateral stent change vs removal in 2-3 weeks. [facility] Work Phone: 02-19-2025 Note HNO ID: [id number] Author: RADHA GRAHAM RPh Service: Pharmacy Author [...] inpatient anticoagulation education is needed. Radha Graham RPh [facility] 02-19-2025 Note HNO ID: [id number] Author: ANMOL HERBERT MD Service: Urology Author [...] was discussed with the patient or authorized fundraising sale representative. The patient or authorized fundraising sale representative has agreed to proceed with the [...] 87* 69* 64* 93* 108* Urinalysis: Specific Howell, Ur Date Value Ref Range Status 02/16/2025 [...] male with chronic bilateral stents placed at [facility] in MAY 2024 - no acute surgical intervention - remains off levo - daily labs; cr stable - plan to follow up with the [facility] urology for stent removal unless becomes unstable / concern for removal needed sooner, then we would discuss OR inpatient - appreciate ICU care - urology to sign off at this time - please reach out with any questions or concerns Tiffanie Baltazar DO Urology PGY-1 February 19, 2025 10:11 AM [facility] 02-19-2025 Note HNO ID: [id number] Author: ELIZABETH SOLER MD Service: Critical Care [...] hematuria The patient initially presented to the [facility] ED on February 16, 2025 [facility] MICU was consulted for septic shock, [...] recommended patient to follow-up with urology at the [facility]. Patient was extubated on 02/17 successfully. [...] this admission. Pt can follow up with [facility] Urology Infectious disease: Discontinue vancomycin [...] CBC: Recent Labs 02/19/2541802/18/25 0420 02/17/25 1009 02/17/25 0225 02/16/25 1922 [...] -- -- -- 1.2 CMP: Recent Labs 02/19/25 0419 02/18/25 0420 02/17/25 0225 02/16/25 1922 GLUC 115* [...] Value Units Date/Time Respiratory Culture and Stain [[id number]] (Abnormal) Collected: 02/17/25 1010 Order Status: Completed Specimen: Sputum Updated: 02/18/25 0916 Culture, Respiratory Few Normal respiratory gosia present Gram Stain Few Mixed oral gosia Rare Polymorphonuclear leukocytes Few Epithelial cells Blood Culture [[id number]] (Abnormal) Collected: 02/16/25 1928 Order Status: Completed Specimen: Blood Updated: 02/18/25 1603 Culture, Blood Culture report of Enterococcus faecalis Comment: Cephalosporins, clindamycin, and TMP-SMX are not effective for the treatment of enterococcal (more content not included)... [facility] 02-19-2025 Note HNO ID: [id number] Author: NOTE, INTERFACE, ? Service: ? Author Type: ? Type: Progress Notes Filed: 02/19/2025 02:55 Note Text: Epic Scheduled Downtime: 02/19/2025 1:00:00 AM to 02/19/2025 2:37:00 AM [facility] 02-18-2025 Note HNO ID: [id number] Author: GAYLE SCOTT MD Service: Infectious Disease [...] and UTI. Spinal cord injury residing at [facility], presented to [facility] 02/16/2025 for unresponsiveness when normally alert and [...] that although [facility] she was called and told he was [...] 1 mg inje (more content not included)... [facility] 02-18-2025 Note HNO ID: [id number] Author: ANMOL HERBERT MD Service: Urology Author [...] Value 02/18/2025 69 11/25/2021 275 Urinalysis: Specific Howell, Ur Date Value Ref Range Status 02/16/2025 [...] male with chronic bilateral stents placed at [facility] in MAY 2024 PLAN: - No acute intervention - Given pt improvement on current regimen, no plans for surgery this admission - Pt can follow up with [facility] Urology - Appreciate ICU care Jose Nesbitt MD PGY1 Urology 12:22 PM 02/18/25 [facility] 02-18-2025 Note HNO ID: [id number] Author: JON MCDONALD MD Service: Critical Care Author Type: Physician Type: Progress Notes Filed: 02/18/2025 13:06 Note Text: [facility] STAFF PHYSICIAN NOTE OF PERSONAL INVOLVEMENT [...] with extensive medical hx who [facility]. In the ED, was obtunded [...] designee ICU Dispositio (more content not included)... [facility] 02-18-2025 Note HNO ID: [id number] Author: JON MCDONALD MD Service: Critical Care [...] intubation. The patient initially presented to the [facility] ED on February 16, 2025 [facility], last known well 1700 today INTERVAL [...] this admission. Pt can follow up with [facility] Urology Infectious disease: Discontinue vancomycin [...] Value Units Date/Time Respiratory Culture and Stain [[id number]] (Abnormal) Collected: 02/17/25 1010 Order Status: Completed Specimen: Sputum Updated: 02/17/25 1328 Gram Stain Few Mixed oral gosia Rare Polymorphonuclear leukocytes Few Epithelial cells Blood Culture [[id number]] (Abnormal) Collected: 02/16/251927 Order Status: Completed Specimen: Blood Updated: 02/17/25 1049 Gram Stain Gram positive cocci in pairs and chains Gram negative bacilli Blood Culture [[id number]] (Abnormal) Collected: 02/16/251921 Order Status: Completed Specimen: [...] with IV c (more content not included)... [facility] 02-18-2025 Note HNO ID: [id number] Author: NOTE, INTERFACE, ? Service: ? Author Type: ? Type: Progress Notes Filed: 02/18/2025 03:47 Note Text: Epic Scheduled Downtime: 02/18/2025 1:00:00 AM to 02/18/2025 3:39:00 AM [facility] 02-17-2025 Note HNO ID: [id number] Author: ELLIOT GOMEZ RN Service: Care Management Author Type: Registered Nurse Type: Care Mgt Initial Assessment Filed: 02/17/2025 13:50 Note Text: CARE MANAGEMENT: ASSESSMENT AND DISCHARGE PLAN SERVICE DATE: February 17, 2025 SERVICE TIME: 1343 PCP: No primary care provider on file. Primary Contact: Extended Emergency Contact Information Primary Emergency Contact: GAILSUMI Mobile Relation: Daughter Secondary Emergency Contact: Ronald Reynolds Address: [address] [place] [address] Mobile Relation: Brother Admission Status: Inpatient Insurance Provider: ITALIA GARBER MEDICARE Discharge Planning requested by: Per Department Practice Potential Transition Plans Fpc Facility/Intermediate Care Facility Advance Directives Current Advance Directive: None Foam Cutting Supervisor Attempted to Assist with AD Completion: Yes Action: Education Provided Current Living Arrangements and Support Lives with: Other person(s) Type of Residence: Extended Care Facility Does the patient have to climb stairs at home?: No Care Facility Name: [facility] Support: Children, Other: See Comment F staff How do you manage to accomplish the following: Dependent: Ambulation, Bathe/Shower, Meals/Meal Prep, Dress, Going to the bathroom, Medication Management, Transportation to appointments/community Current Services/Equipment Current Post-Acute Service(s): DME Current DME Type: Wheelchair-electric, [place] Lift Discharge Planning Patient Goal(s): General wellness [place] of Choice Explained: [place] of [place] Given: No Reason Not Given: No placements necessary Are you interested in bedside delivery of your medications? No Discharge Planning Participant(s): Patient, Children Patient/Family Comments: Caregiver Assessment: Caregiver is ready, willing and able to meet the patient's needs as recommended by the inter-professional team: Yes Name of Caregiver: [facility] Transport at Discharge: Transportation Arrangements: Ambulance Transportation Agency and Phone #:: [facility] ( [facility] ) [phone] / [phone] Needs Prior to Discharge: Needs Prior to Discharge: To Be Determined, OT/PT Evaluation, Discharge Transportation Post-Acute Discharge Plan: Met with patient and daughter Sumi in room. Extubated this morning. LEGAL INSTRUCTOR [facility] [facility] for septic shock. Patient is LTC and a bed hold at the facility. Plan is to return to [facility] at discharge per daughter. Recommend therapy evals when appropriate. Patient will need precert if skilled is needed on return. Patient will need cot transport at discharge. CM will continue to follow. SIGNATURE: Elliot Gomez RN PATIENT NAME: Anmol Reynolds DATE: February 17, 2025 TIME: 1:43 PM [facility] 02-17-2025 Note HNO ID: [id number] Author: JESSICA CLEMENT cathy Service: Pharmacy Author Type: Pharmacist Type: Plan of Care Filed: 02/21/2025 09:54 Note Text: PHARMACY MEDICATION REVIEW Patient Name: Anmol Reynolds : 1960 The following medications were updated within the LEGAL INSTRUCTOR medication list: Medications ADDED to LEGAL INSTRUCTOR medication list aspirin, enteric coated (ASPIRIN, ENTERIC [...] hours as needed (heartburn). Medications CHANGED on LEGAL INSTRUCTOR medication list Medications REMOVED from LEGAL INSTRUCTOR medication list alogliptin benzoate (ALOGLIPTIN ORAL) Adjust [...] E-Cancel Additional comments: Verified medication information with [facility]. Removed medications listed above from med list to match [facility] med list. Added medications listed above to med list to match [facility] med list. Required follow up actions for nursing: None The below information represents the best possible medication history: Yes Medication history completed by: Developmental Services Worker: Rosa Brice (Regional Wildlife Agent) Source of history: [facility] and [facility] records Medication nonadherence identified: No barriers noted Reconciliation completed: Yes Completed by: TREV All LEGAL INSTRUCTOR medications addressed by TREV Patient interested in Bedside Delivery Services or using OP Pharmacy at discharge? No Preferred outpatient pharmacy: [facility] Allergies: No Known Allergies [...] Inject subcutaneously thre (more content not included)... [facility] 02-17-2025 Note HNO ID: [id number] Author: JON MCDONALD MD Service: Critical Care Author Type: Physician Type: Progress Notes Filed: 02/17/2025 13:12 Note Text: [facility] STAFF PHYSICIAN NOTE OF PERSONAL INVOLVEMENT [...] with extensive medical hx who presented from [facility] for [facility]. In the ED, was obtunded [...] Prevention: Line Status: (more content not included)... [facility] 02-17-2025 Note HNO ID: [id number] Author: JON MCDONALD MD Service: Critical Care [...] intubation. The patient initially presented to the [facility] ED on February 16, 2025 after being [facility] unresponsive at his [facility], last known well 1700 today INTERVAL [...] pathology LV Ejection (more content not included)... [facility] 02-16-2025 Note HNO ID: [id number] Author: ROZ MIKE RN Service: ? Author Type: Registered Nurse Type: ED Notes Filed: 02/16/2025 19:48 Note Text: Restraints applied at this time, bilateral upper extremity softs. [facility] 01-31-2025 Instructions Rj Brooks RN - 01/31/2025 2:01 PM EDT WOUND CARE INSTRUCTIONS- Anmol Given Wound location: sacrum & left ischium [facility] -Gather supplies -Place down a clean [...] the wound base. - Cover with 4x4 Kerkhoven SAP. - Change your dressing daily and [...] following changes to the Wound Center at [phone] or go to the Emergency Department: Fever or chills Increased drainage Green or yellow drainage Foul odor Increased pain Hardness around the wound Redness, warmth or swelling of the surrounding tissue Color change to the wound When contacting the wound center at the ([phone]): Leave a message that includes your full [...] Blood work ordered please go to any [facility] lab. - Please send patient with medication list at next appointment. - Continue aggressive nutritional support to assist wound healing - CAT Scans & MRI need to be scheduled through Central Scheduling. Call [phone].(If applicable) Milad Goodson MD/jason/juan josé documented in this encounter [facility] 01-31-2025 Note HNO ID: [id number] Author: MILAD GOODSON MD Service: ? Author [...] hyperglycemia, with long-term current use of insulin ([facility]) 01/18/2021 Ureteral stone 11/25/2021 UTI (urinary [...] negative unless stat (more content not included)... [facility] 01-31-2025 History of Present illness Narrative Images [...] Chronic pain of right ankle 11/26/2021 Diabetes ([facility]) Elevated CA 19-9 level 08/21/2021 Epidural abscess (HCC) 01/04/2022 MRSA bacteremia 11/27/2021 Neuropathy Nicotine use disorder, F17.2 06/14/2019 Pilonidal cyst with abscess 12/31/2020 Pilonidal cyst without abscess 05/29/2020 Pyelonephritis 11/27/2021 Sciatica Severe protein-calorie malnutrition (HCC) 09/04/2021 Type 2 diabetes mellitus with hyperglycemia, with long-term current use of insulin ([facility]) 01/18/2021 Ureteral stone 11/25/2021 UTI (urinary [...] in motorized wheelchair Home Care Company/Nursing Facility: [facility] Consent captured for debridement per (Provider) and good until Special Instructions (for example, patient stands at the bedside for exam/dressing): bed Anticoagulant Therapy: aspirin Living Situation (ie... Apartment, [facility], [place]: facility [...] BY PROVIDER: Anesthetic Used: N/A applied per clerical secretary # 1 & 2 Other procedure: Specimen [...] alginate AG Covered and secured with: 4x4 Kerkhoven SAP Other: COMPRESSION: N/A DME: Prism order date __ DME: [employer] , PH: [phone] SPECIAL NEEDS: Coordination of care N/A Emotional support N/A OR set-up N/A Stoker Installation Mechanic N/A Incontinence needs N/A DISCHARGED in stable condition to: facility in motorized wheelchair PLAN/ORDERS: - Return to the Wound Center to see Milad Goodson MD in 6 weeks. - Blood work ordered please go to any [facility] lab. - Please send patient with medication list at next appointment. - Continue aggressive nutritional support to assist wound healing - CAT Scans & MRI need to be scheduled through Central Scheduling. Call [phone].(If applicable) EDUCATION: The patient/family was instructed how [...] Rj Brooks RN/fm documented in this encounter [facility] 01-31-2025 Note HNO ID: [id number] Author: RJ BROOKS RN Service: ? Author Type: Registered Nurse Type: Progress Notes Filed: 01/31/2025 14:59 Note Text: Nursing Documentation Pertinent Medical History: paraplegia, MRSA, osteomyelitis, UTI, DM2, neuropathy, pyelonephritis, Wound Etiology according to patient: sacrum wound has had for four years per pt Patient arrived via: self in motorized wheelchair Home Care Company/Nursing Facility: [facility] Consent captured for debridement per (Provider) and good until Special Instructions (for example, patient stands at the bedside for exam/dressing): bed Anticoagulant Therapy: aspirin Living Situation (ie... Apartment, house, [facility]): [facility] Who lives with patient: facility Who [...] BY PROVIDER: Anesthetic Used: N/A applied per clerical secretary # 1 AND 2 Other procedure: Specimen [...] alginate AG Covered and secured with: 4x4 Kerkhoven SAP Other: COMPRESSION: N/A DME: Prism order date __ DME: [employer] , PH: [phone] SPECIAL NEEDS: Coordination of care N/A Emotional support N/A OR set-up N/A Stoker Installation Mechanic N/A Incontinence needs N/A DISCHARGED in stable condition to: facility in motorized wheelchair PLAN/ORDERS: - Return to the Wound Center to see Milad Goodson MD in 6 weeks. - Blood work ordered please go to any [facility] lab. - Please send patient with medication list at next appointment. - Continue aggressive nutritional support to assist wound healing - CAT Scans AND MRI need to be scheduled through Central Scheduling. Call [phone].(If applicable) EDUCATION: The patient/family was instructed how [...] consult the [facility] Rj Brooks RN/fm [facility] 01-04-2025 History of Present illness Narrative Radiology [...] PATIENT PRESENTS WITH AN IMPLANTABLE OR ATTACHED ACTIVITIES LEADER: No ALLERGIES: Reviewed and unchanged CONTRAST ALLERGY: NO. EXAM: MRI - CONTRAST TYPE: GROUP II PERIPHERAL IV DATA: RAD RN IV RADIOLOGY DEPARTMENT: MR; Exam(s) Completed: Spine: Sacrum/Coccyx SIGNATURE: LIZ Roth PATIENT NAME: Anmol Given DATE: January 04, 2025 TIME: 8:49 AM documented in this encounter [facility] 01-04-2025 Note HNO ID: [id number] Author: AMBROSIO BAUGH RT(R) Service: Radiology Author [...] PATIENT PRESENTS WITH AN IMPLANTABLE OR ATTACHED ACTIVITIES LEADER: No ALLERGIES: Reviewed and unchanged CONTRAST ALLERGY: NO. EXAM: MRI - CONTRAST TYPE: GROUP II PERIPHERAL IV DATA: DIANA PAVON IV RADIOLOGY DEPARTMENT: MR; Exam(s) Completed: Spine: Sacrum/Coccyx SIGNATURE: LIZ Roth PATIENT NAME: Anmol Given DATE: January 04, 2025 TIME: 8:49 AM [facility] 01-04-2025 Note HNO ID: [id number] Author: JOVANY JOHNSTON RN Service: Radiology Author [...] DATE: January 04, 2025 TIME: 8:46 AM [facility] 11-08-2024 History of Present illness Narrative Images [...] 50 NLI T11 AIS A ASSESSMENT Anmol Given is a 64 year old male here [...] months (around 02/05/2025) for in-person visit with [facility]. Faisal Simeon DO 11/08/2024 documented in this encounter [facility] 10-27-2024 Telephone encounter Note Returned call unable to leave message doug was out for the day [facility] 10-27-2024 Miscellaneous Notes Returned call unable to leave message doug was out for the day Name of caller: Doug Contact phone number: [phone] [facility] Provider: Dr. [facility] Practice: [facility] Chief Complaint/Reason for Call: Doug [...] pain management//no showed on 08.04.24// Doug from [facility] appt//medicare medicaid Office Name: [facility] Medication Refills need, if any: n/a Medication Name: n/a documented in this encounter [facility] 10-26-2024 Telephone encounter Note Name of caller: Doug Contact phone number: [phone] Relationship to Patient: [facility] Provider: Dr. Gillette Practice: [facility] Chief Complaint/Reason for Call: Doug states she missed a call from the office to schedule the patient and would like a return call. Please review. Best time of day caller can be reached: any Patient advised that office/PCP has 24-48 business hours to return their call: Yes [facility] 10-26-2024 Telephone encounter Note Called and left message to call to reschedule appointment [facility] 10-25-2024 Telephone encounter Note Name of Caller: Doug Contact Reason for Appointment: Please call to r/s cx appt for 10.26.24 due to weather conditions. Follow up for pain management//no showed on 08.04.24// Doug from [facility] appt//medicare medicaid Office Name: [facility] Medication Refills need, if any: n/a Medication Name: n/a [facility] 09-30-2024 Instructions Faisal Simeon DO - 09/30/2024 1:28 PM EST Completed UDS. Inserted 18Fr 10cc santana Call to schedule appt with Urology Dr Jorge Grimm MD (Surgeon) [address] [place] [address] [place] [address] scan given recurrent blood [...] burning on urination, call the office at [phone] Thursday through Thursday 8:00 AM to 4:30 PM. For emergencies, go the Emergency Room. If you do not already have a follow up appointment scheduled with your physician, call the office at [phone] to schedule one. documented in this encounter [facility] 09-30-2024 History of Present illness Narrative [...] then PVR was assessed by straight catheterization. 7-Somali urodynamic catheter was placed in the bladder [...] Void Residual (mL): 325 mL Storage phase (77468 or 63525/47661) Rate of Fluid infusion, First sensation (Normal [...] was observed only with valsalva Voiding Phase (22892/65200) Maximum flow, Pdet at maximum flow, Volume voided: See scanned report in Media EMG Anal/urinary muscle study patch (13344 -50) EMG inconclusive (connection was lost during study). [...] INTRA-ABDOMINAL VOIDING PRESSURE INSERT CATHETER (SANTANA) SIMPLE [31512] COMPLEX CYSTOMETROGRAM CT RENAL STONE nitrofurantoin monohydrate macrocrystal (Macrobid) 100 MG capsule Patient Instructions Completed UDS. Inserted 18Fr 10cc santana Call to schedule appt with Urology Dr Jorge Grimm MD (Surgeon) [address] [facility] [address] [place] [address] scan given recurrent blood [...] burning on urination, call the office at [phone] Thursday through Thursday 8:00 AM to 4:30 PM. For emergencies, go the Emergency Room. If you do not already have a follow up appointment scheduled with your physician, call the office at [phone] to schedule one. Catheters: Continue indwelling catheterization Fluid intake: maintaining hydration Medications: contrinue flomax for stent/stones Other: See above Return to Clinic: Follow up in about 4 weeks (around 10/28/2024) for video visit (telehealth). Faisal Simeon DO 09/30/2024 documented in this encounter [facility] 08-22-2024 History of Present illness Narrative [...] Resource Strain: Low Risk (04/24/2023) Received from [facility] Overall Financial Resource Strain (CARDIA) Difficulty of Paying Living Expenses: Not hard at all Food Insecurity: No Food Insecurity (05/18/2024) Received from [facility] Hunger Vital Sign Worried About Running Out of Food in the Last Year: Never true Ran Out of Food in the Last Year: Never true Transportation Needs: No Transportation Needs (05/18/2024) Received from [facility] PRAPARE - Transportation Lack of Transportation (Medical): No Lack of Transportation (Non-Medical): No Intimate Partner Violence: Not At Risk (05/18/2024) Received from [facility] Humiliation, Afraid, Rape, and Kick questionnaire Fear [...] Forteo or Tymlos. He is amenable. [facility] to get labs ordered Will check BMP, Vit D, PTH, SPEP Plan for Forteo if labs ok. Follow up 3 months or sooner PRN Giuliano Shultz DO documented in this encounter [facility] 08-12-2024 Telephone encounter Note Spoke with [facility] where pt resides and given the date and time of LUMBER BEARER video visit with Dr. Shultz at 8:20 am on 08/22/24. This information will be relayed to pt. [facility] 08-12-2024 Miscellaneous Notes Spoke with [facility] where pt resides and given the date and time of LUMBER BEARER video visit with Dr. Shultz at 8:20 am on 08/22/24. This information will be relayed to pt. documented in this encounter [facility] 08-01-2024 Note Addended by: FAISAL SIMEON on: 08/01/2024 02:57 PM Modules accepted: Level of Service [facility] 08-01-2024 Note Addended by: FAISAL SIMEON on: 08/01/2024 02:57 PM Modules accepted: Level of Service [facility] 08-01-2024 Miscellaneous Notes Addended by: FAISAL SIMEON on: 08/01/2024 02:57 PM Modules accepted: Level of Service documented in this encounter [facility] 08-01-2024 Instructions Howard Dhaliwal MD - 08/01/2024 9:30 AM EDT -Continue PT/OT -Please follow your appoitment with pain team and rheumatology -You are scheduled for bladder study on 09/30/24 -continue scheduled bowel care daily documented in this encounter [facility] 07-31-2024 History of Present illness Narrative [...] following spinal surgery ~2 yrs ago in [place] . In 2019, pt had his first back surgery performed by [facility] which was an interbody fusion. 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 At that point, the hospital took the hardware out and did not replace it with the goal of treating the infection. 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 After the infection was treated, [facility] extended his fusion, decompressed the back, and replaced all hardware. At that time he lost all motor and sensation to his lower extremities. He was independent uptill december 2021 till his last spine surgery two year ago.Since 2021 [facility]. Currently SN[facility]. Last seen on 06/13/24 in clinic and recommendations was: -Continue PT/OT -Bowel care: schedule bowel care once/day (either after breakfast or dinner) - using suppository and manual stimulation over commode chair will be more helpful than over bed . - Continue skin care - Follow [facility] service consult( we requested today ) [...] healing- being followed [facility] at [facility]. 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 Gr[facility] murphy to Rheumatology. Spoke with patient's brother today who referred me to call [facility], where patient resides, to see about arranging transportation for patient to a Rheumatology appt (not scheduled yet). I spoke with a healthcare worker at [facility] and let her know we can also schedule a video visit with Dr. Hare. She will call me back after discussing with patient. [facility] 07-27-2024 Telephone encounter Note Referral from Dr. Mejia to Rheumatology. Spoke with patient's brother today who referred me to call [facility], where patient resides, to see about arranging transportation for patient to a Rheumatology appt (not scheduled yet). I spoke with a healthcare worker at [facility] and let her know we can also schedule a video visit with Dr. Hare. She will call me back after discussing with patient. [facility] 07-27-2024 Miscellaneous Notes Referral from Dr. Mejia to Rheumatology. Spoke with patient's brother today who referred me to call [facility], where patient resides, to see about arranging transportation for patient to a Rheumatology appt (not scheduled yet). I spoke with a healthcare worker at [facility] and let her know we can also schedule a video visit with Dr. Hare. She will call me back after discussing with patient. documented in this encounter [facility] 07-13-[address] Mejia referral to Rheumatology for Osteoporosis. Spoke with brother who transports pt to and from appts since pt resides in extended care facility. Brother is available on Fridays to transport pt to appts. Will call him back with options. [facility] Telephone encounter Note This is a Dr Mejia referral to Rheumatology for Osteoporosis. Spoke with brother who transports pt to and from appts since pt resides in extended care facility. Brother is available on Fridays to transport pt to appts. Will call him back with options. [facility] 07-13-2024 Miscellaneous Notes This is a Dr Mejia referral to Rheumatology for Osteoporosis. Spoke with brother who transports pt to and from appts since pt resides in extended care facility. Brother is available on Fridays to transport pt to appts. Will call him back with options. documented in this encounter [facility] 06-16-2024 Note Addended by: FAISAL SIMEON on: 06/16/2024 09:13 PM Modules accepted: Level of Service [facility] 06-16-2024 Miscellaneous Notes Addended by: FAISAL SIMEON on: 06/16/2024 09:13 PM Modules accepted: Level of Service documented in this encounter [facility] 06-16-2024 Telephone encounter Note Scheduled appointment [facility] 06-16-2024 Miscellaneous Notes Scheduled appointment Doug is calling in again wanting to rescheduled they can be reached at the office anytime before 3pm. Please advise and thank you LM for Doug to call the office to discuss the pt Name of caller: Doug Contact phone number: [phone] Relationship to Patient: [facility] Provider: [facility] Practice: pain management Chief Complaint/Reason for Call: doug is calling in wanting to speak to the main office. Please advise and thank you Best time of day caller can be reached: any Patient advised that office/PCP has 24-48 business hours to return their call: Yes documented in this encounter [facility] 06-16-2024 Telephone encounter Note Doug is calling in again wanting to rescheduled they can be reached at the office anytime before 3pm. Please advise and thank you [facility] 06-15-2024 Telephone encounter Note LM for Doug to call the office to discuss the pt [facility] 06-15-2024 Telephone encounter Note Name of caller: Doug Contact phone number: [phone] Relationship to Patient: [facility] Provider: [facility] Practice: pain management Chief Complaint/Reason for Call: doug is calling in wanting to speak to the main office. Please advise and thank you Best time of day caller can be reached: any Patient advised that office/PCP has 24-48 business hours to return their call: Yes [facility] 06-14-2024 Telephone encounter Note RTC to pt, left voice mail. Vladimir Asher [facility] Canvas Goods Supervisor [phone] [facility] 06-14-2024 Miscellaneous Notes RTC to pt, left voice mail. Vladimir Asher [facility] [employer] Good[employer] Supervisor [phone] documented in this encounter [facility] 06-13-2024 Instructions Howard Dhaliwal MD - 06/13/2024 12:29 PM EDT -Continue PT/OT -Bowel care: schedule bowel care once/day (either after breakfast or dinner) - using suppository and manual stimulation over commode chair will be more helpful than over bed . - Continue skin care - Follow [facility] service consult( we requested today ) for benefits eligibility - Bladder: We ordered today Urodynamic study for your bladder evaluation (to see your bladder status post spinal cord injury) documented in this encounter [facility] 06-13-2024 Instructions Howard Dhaliwal MD - 06/13/2024 12:29 PM EDT -Continue PT/OT -Bowel care: schedule bowel care once/day (either after breakfast or dinner) - using suppository and manual stimulation over commode chair will be more helpful than over bed . - Continue skin care - Follow [facility] service consult( we requested today ) for benefits eligibility - Bladder: We ordered today Urodynamic study for your bladder evaluation (to see your bladder status post spinal cord injury) documented in this encounter [facility] 06-13-2024 History of Present illness Narrative Patient was identified by name and date of . Evelio Grey documented in this encounter [facility] 06-13-2024 History of Present illness Narrative [...] following spinal surgery ~2 yrs ago in [place] . In 2019, pt had his first back surgery performed by [facility] which was an interbody fusion. 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 At that point, the hospital took the hardware out and did not replace it with the goal of treating the infection. 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 After the infection was treated, [facility] extended his fusion, decompressed the back, and replaced all hardware. At that time he lost all motor and sensation to his lower extremities. He was independent uptill december 2021 till his last spine surgery two year ago Patient was accompanied by brother . The patient gave permission to discuss their medical information, including PHI, in their presence. Since 2021 [facility] is in [facility] and [facility] so far. Currently SNF [facility]. 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 - Continue skin care - Follow [facility] service consult( we requested today ) [...] Faisal Simeon DO documented in this encounter [facility] 05-22-2024 Note Formatting of this n ote might be different from the original. Called Carlos Flower's dispatch, new ETA is around 1900. [facility] 05-22-2024 Note Formatting of this n ote might be different from the original. Called Carlos Flower's dispatch, new ETA is around 1900. [facility] 05-22-2024 Miscellaneous Notes Called Carlos Flower's dispatch, new ETA is around 1900. CARE COORDINATION DAILY NOTE/UPDATE Discharge Plan: [facility] This TCC was tasked to follow this patient through the weekend assisting with discharge planning. Chart was reviewed. Met with patient at bedside to confirm if he would like to return to [facility]. Patient agreeable to return. Messaged attending and infectious disease to see if patient is able to discharge today. Discharge order placed. Scheduled discharge transportation in [employer], pickle maker time confirmed for 05/22 at 1600. Bedside nurse notified of transport and will update patient and family of plan Facility notified of transportation time and discharge documents including After Visit Summary, MAR, LABS, and Vitals were uploaded into [employer] for review. Problem: Knowledge Deficit Goal: Patient/family/caregiver [...] determined. Current discharge plan is return to [facility]. Will return skilled only if needed, otherwise he can return under his medicaid benefit per [facility] message. TCC to continue to follow. Return Referral placed to [facility] via [facility] per TCC request. Await review and response regarding ability to accept. TCC notified. Care Managment Initial Assessment Date: 05/19/2024 Patient Name: Anmol Reynolds : 1960 Patient Information Source of Information: Patient Cognition/Language: WFL - Within Functional Limits Permission given to speak with patient fundraising sale representative/caregiver as indicated: Yes Confirmation of Payer with patient/family: Yes Payer Name: Medicare A/B; [place] Medicaid [place]: No Confirmation of Primary Care Physician: Confirmed PCP Name: Tab Nieves MD at facility Seen in last 2 years?: Yes Primary Caregiver: Other (Comment) (facility staff) If assistance needed, confirmed caregiver ready, willing and able to care for patient at discharge: No (n/a) Confirmed with: Living Arrangements Facility: [facility] Facility Name: [facility] Plan to Return: Yes Lives with: Alone, [...] ECF Discharge Planning Actions: Continue to follow, [facility] Facility referral indicated [place] choice: [place] discussed (choice list not indicated; [...] ID consulted. Patient is a resident at [facility] xfew years. Patient confirmed plan for return. STRAIGHTENER AND ALIGNER tasked to place return referral. Anticipate discharge [...] instructions Outcome: Progressing documented in this encounter [facility] 05-22-2024 Nurse Note Transport arranged for 1600. Belongings packed and paperwork finished. Carlos Montelongo update: 45 minutes. Elly Cormier RN [facility] 05-22-2024 Nurse Note Transport arranged for 1600. Belongings packed and paperwork finished. Carlos Montelongo update: 45 minutes. Elly Cormier RN Santana catheter leaking since last night. Dr. Mahajan paged via secure chat. Catheter to be replaced. Patient informed me that they use a 18 maltese santana at the [facility]. A 16 maltese was previously in. Urology cart was ordered, and a 18 maltese santana was placed with 500 mL output. Larger balloon, filled with 25 mL. No leaking. Will continue to monitor. Elly Cormier RN documented in this encounter [facility] 05-22-2024 Nurse Note Santana catheter leaking since last night. Dr. Mahajan paged via secure chat. Catheter to be replaced. Patient informed me that they use a 18 maltese santana at the [facility]. A 16 maltese was previously in. Urology cart was ordered, and a 18 maltese santana was placed with 500 mL output. Larger balloon, filled with 25 mL. No leaking. Will continue to monitor. Elly Cormier RN [facility] 05-22-2024 Hospital course Narrative Images from [...] Complexity: follow up within 7-14 calendar days (00642) [] Severe Complexity: follow up within 7 calendar days (09035) FOLLOW UP TESTING, PENDING RESULTS OR REFERRALS [...] 05/22/2024, 1:52 PM documented in this encounter [facility] 05-22-2024 History of Present illness Narrative Hospitalist Progress Note 05/22/2024 Subjective: Admit Date: 05/17/2024 PCP: Tab Dupont Room#: W6-625/W6-010 A Brief Hospital course: Anmol is a [...] MD Division of Hospitalist Medicine Inpatient Medical Services/[facility] Images from the original note were not included. PHYSICAL THERAPY [facility] Initial Evaluation Name/MRN: Anmol Reynolds ([id number]) Evaluation Date: 05/21/2024 Date of : 1960 Admission Date: 05/17/2024 8:25 PM Age: 63 y.o. [facility] Discharge Recommendation: ECF without PT (Patient states he may be interested to going to a different ECF in [place]) Equipment Needed: No Assessment IMPRESSION: Patient [...] gait and mobility Other reduced mobility Paraplegia ([facility]) Sciatica Spinal stenosis of lumbar region with neurogenic claudication Type 2 diabetes mellitus without complication (CMS/HCC) ([facility]) Urinary calculus, unspecified UTI (urinary tract infection) Past Surgical History: Past Surgical History: Procedure Laterality Date ANKLE SURGERY Right He has a titanium plate to the right ankle KNEE SURGERY Left ACL KNEE SURGERY Left removal of screw LAMINECTOMY Left 10/24/2020 LEFT BILATERAL L2-3-4-5 DECOMPRESSION performed by Opal Vigil MD at [facility] [place] ORTHOPEDIC SURGERY Right removal of hardware ankle US PLACE URETAL STENT PERC PRE-EXIST TRACT S&I (HISTORICAL) Bilateral 04/14/2024 Dr. Grimm/Bashir Admission Diagnosis: Patient Active Problem List Diagnosis Date Noted Hypertension 01/06/2017 Hyperglycemia 01/06/2017 Hip sprain 01/06/2017 Anxiety 01/06/2017 Positive blood cultures 05/17/2024 Calculus of ureter 05/06/2024 Bladder calculus 05/05/2024 Pressure injury of coccygeal region, stage 3 ([facility]) 04/20/2024 Septic shock ([facility]) 04/14/2024 Lumbar stenosis with neurogenic claudication 10/24/2020 Spinal stenosis of lumbar region with neurogenic claudication 10/24/2020 Nicotine use disorder 10/15/2020 Unspecified osteoarthritis, unspecified site 10/15/2020 Pilonidal cyst without abscess 10/15/2020 Diabetes mellitus without complication (CMS/HCC) ([facility]) 10/15/2020 Abnormal finding on EKG 10/15/2020 [...] normal Social/Functional History [facility] Assistive Equipment: wheelchair - electric, hospital [...] of Care supervision is transferred to a [facility] Physical Therapist. Goals and/or [...] MD Division of Hospitalist Medicine Inpatient Medical Services/[facility] Images from the original note were not included. 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 ID Paraplegia w neurogenic bladder s/p [...] if questions or concerns. Rosalinda Fox CNP [facility] - Infectious Diseases 10:11 [...] MD Division of Hospitalist Medicine Inpatient Medical Services/[facility] Nutrition Assessment Type and Reason for Visit: [...] of note, pt was recently admitted to [facility] 04/14-04/20/2024 with proteus, providencia, and morganella [...] On: Kcal/kg Weight Used for Energy Requirements: [place] Weight for Energy Calculation (kg): 89 kg Total Energy Requirements (kcals/day): 2941-7223 kcal/day (25-30 kcal/kg) Weight Used for Protein Requirements: [place] Weight in Kg Used for Protein Requirements: [...] mostly appear stated, 180-200#, noted 04/19- 212#) [place] Body Weight (lbs) (Calculated): 196 lbs [place] Body Weight (Kg) (Calculated): 89 kg BMI [...] Chelita Dominguez RD Contact: Secure chat or *[phone] Images from the original note were not included. 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 Melchor. Rosalinda Fox, [facility] - Infectious Diseases [...] MD Division of Hospitalist Medicine Inpatient Medical Services/[facility] Hospitalist Progress Note 05/18/2024 Subjective: Admit Date: [...] MD Division of Hospitalist Medicine Inpatient Medical Services/[facility] documented in this encounter [facility] 05-22-2024 Note Formatting of this n ote might be different from the original. CARE COORDINATION DAILY NOTE/UPDATE Discharge Plan: [facility] This TCC was tasked to follow this patient through the weekend assisting with discharge planning. Chart was reviewed. Met with patient at bedside to confirm if he would like to return to [facility]. Patient agreeable to return. Messaged attending and infectious disease to see if patient is able to discharge today. Discharge order placed. Scheduled discharge transportation in [employer], pickle maker time confirmed for 05/22 at 1600. Bedside nurse notified of transport and will update patient and family of plan Facility notified of transportation time and discharge documents including After Visit Summary, MAR, LABS, and Vitals were [facility] for review. [facility] 05-22-2024 Note Formatting of this n ote might be different from the original. CARE COORDINATION DAILY NOTE/UPDATE Discharge Plan: [facility] This TCC was tasked to follow this patient through the weekend assisting with discharge planning. Chart was reviewed. Met with patient at bedside to confirm if he would like to return to [facility]. Patient agreeable to return. Messaged attending and infectious disease to see if patient is able to discharge today. Discharge order placed. Scheduled discharge transportation in [employer], pickle maker time confirmed for 05/22 at 1600. Bedside nurse notified of transport and will update patient and family of plan Facility notified of transportation time and discharge documents including After Visit Summary, MAR, LABS, and Vitals were [facility] for review. [facility] 05-22-2024 Plan of care note Problem: Knowledge [...] Assess Nutritional Intake Outcome: Adequate for Discharge [facility] 05-22-2024 Plan of care note Problem: Safety Goal: Patient will be injury free during hospitalization Outcome: Progressing Problem: Safety Goal: I will remain free of falls Outcome: Progressing T [facility] 05-21-2024 Plan of care note Problem: [...] Interventions Goal: Assess Nutritional Intake Outcome: Progressing [facility] 05-20-2024 Plan of care note Problem: Knowledge Deficit Goal: Patient/family/caregiver demonstrates understanding of disease process, treatment plan, medications, and discharge instructions Outcome: Progressing Problem: Potential for Compromised Skin Integrity Goal: Skin Integrity is Maintained or Improved Outcome: Progressing Goal: Nutritional status is improving Outcome: Progressing [facility] 05-20-2024 Note Formatting of this n ote might be different from the original. Chart reviewed. ID following for CoNS postive BC and proteus UTI. Repeat BC pending. +iv cefepime, final course not yet determined. Current discharge plan is return to [facility] [place]. Will return skilled only if needed, otherwise he can return under his medicaid benefit per [facility] message. TCC to continue to follow. [facility] 05-20-2024 Note Formatting of this n ote might be different from the original. Chart reviewed. ID following for CoNS postive BC and proteus UTI. Repeat BC pending. +iv cefepime, final course not yet determined. Current discharge plan is return to [facility] [place]. Will return skilled only if needed, otherwise he can return under his medicaid benefit per [facility] message. TCC to continue to follow. [facility] 05-20-2024 Hospital Discharge instructions Elly Cormier RN - 05/20/2024 7:34 AM EDT Images from the original note were not included. Continuity of Care Form Patient Name: Anmol Reynolds : 1960 Admit date: 05/17/2024 Discharge date: 05/22/2024 Code Status Order: Full Code Advance Directives: N Admitting Physician: Heydi Concepcion MD PCP: Tab Dupont Discharging Nurse: Elly Banks RN Discharging Hospital Unit/Room#: W6-235/W6-721 A Discharging Unit Emergency Contact: Extended Emergency [...] DECOMPRESSION performed by Opal Vigil MD at [facility] OR ORTHOPEDIC SURGERY Right removal of hardware [...] Total assistance Toileting Total assistance Feeding Independent Manager Of Administration Total assistance Med Delivery yes Wound Care [...] Date: 05/17/2024 Discharging to Facility/ Agency Name: [facility] Address: [address] [place] [address] Cellophane Bag Machine Operator/Experimental Preflight Mechanic signature: ICIAN SECTION Name: Anmol Reynolds Prognosis: fair Condition at Discharge: stable Rehab Potential (if transferring to Rehab): fair Recommended Labs or Other Treatments After Discharge: cbc,cmp The individual is being admitted to a nursing facility directly from an [facility] or a unit of a [facility] that is not operated by or licensed by [facility] under section 5119.14 or 5160-3-15.1 5 The individual requires the level of services provided by a nursing facility for the condition for which he or she was treated in the hospital and, Physician Certification: I certify the above information and transfer of Anmol Reynolds is necessary for the continuing treatment of the diagnosis listed and that he requires usp facility for less than 30 days. Update Admission H&P: No change in H&P PHYSICIAN SIGNATURE: documented in this encounter [facility] 05-19-2024 Note Formatting of this n ote might be different from the original. Return Referral placed to [facility] via [facility] per TCC request. Await review and response regarding ability to accept. TCC notified. [facility] 05-19-2024 Note Formatting of this n ote might be different from the original. Return Referral placed to [facility] via [facility] per TCC request. Await review and response regarding ability to accept. TCC notified. [facility] 05-19-2024 Note Formatting of this n ote might be different from the original. Care Managment Initial Assessment Date: 05/19/2024 Patient Name: Anmol Reynolds : 1960 Patient Information Source of Information: Patient Cognition/Language: WFL - Within Functional Limits Permission given to speak with patient fundraising sale representative/caregiver as indicated: Yes Confirmation of Payer [...] No (n/a) Confirmed with: Living Arrangements Facility: [facility]irement[facility] Facility Name: [facility] Plan to Return: Yes Lives with: Alone, [...] ECF Discharge Planning Actions: Continue to follow, [facility] Facility referral indicated [place]: [place] discussed (choice list not indicated; [...] ID consulted. Patient is a resident at [facility] xfew years. Patient confirmed plan for return. STRAIGHTENER AND ALIGNER tasked to place return referral. Anticipate discharge in 2-3 days pending medical stability. Patient will need transport. TCC to continue to follow. Vipin Peter RN [facility] 05-19-2024 Note Formatting of this n ote might be different from the original. Care Managment Initial Assessment Date: 05/19/2024 Patient Name: Anmol Reynolds : 1960 Patient Information Source of Information: Patient Cognition/Language: WFL - Within Functional Limits Permission given to speak with patient fundraising sale representative/caregiver as indicated: Yes Confirmation of Payer with patient/family: Yes Payer Name: Medicare A/B; [place] Medicaid [place]: No Confirmation of Primary Care Physician: Confirmed PCP Name: Tab Nieves MD at facility Seen in last 2 years?: Yes Primary Caregiver: Other (Comment) (facility staff) If assistance needed, confirmed caregiver ready, willing and able to care for patient at discharge: No (n/a) Confirmed with: Living Arrangements Facility: [facility] Facility Name: [facility] Plan to Return: Yes Lives with: Alone, Other (Comment) (at [facility]) Support Systems: Children, Family members, Comments [...] ECF Discharge Planning Actions: Continue to follow, [facility] Facility referral indicated [place]: [place] discussed (choice list not indicated; [...] ID consulted. Patient is a resident at [facility] xfew years. Patient confirmed plan for return. [facility] tasked to place return referral. Anticipate discharge in 2-3 days pending medical stability. Patient will need transport. TCC to continue to follow. Vipin Peter RN [facility] 05-18-2024 Plan of care note The patient is Moderately Stable - Low risk of patient condition declining or worsening The patient's goals for the shift include Pain control. The clinical goals for the shift include Patient to remain free of injury for the entirety of the shift. [facility] 05-18-2024 Plan of care note Problem: Knowledge Deficit Goal: Patient/family/caregiver demonstrates understanding of disease process, treatment plan, medications, and discharge instructions Outcome: Progressing [facility] 05-18-2024 Emergency department Note Pt refusing BG check stating I'm already eating. aware. Ella Zavala RN 05/18/24 180 [facility] 05-18-2024 Emergency department Note Pt refusing BG check stating I'm already eating. aware. Ella Zavala RN 05/18/24 180 Pt refusing BG check at this time. MD savage. Ella Zavala RN 05/18/24 1237 Pt refusing [...] has been requested Carmen Crews RN 05/18/24 8623 Pt is asleep, w/ unlabored breathing Carmen [...] DECOMPRESSION performed by Opal Vigil MD at [facility] OR ORTHOPEDIC SURGERY Right removal of hardware [...] Resource Strain: Low Risk (04/24/2023) Received from [facility] Overall Financial Resource Strain (CARDIA) Difficulty [...] Homeless in the Last Year: No SCREENINGS [place] Coma Scale Best Eye Response: Spontaneous Best Verbal Response: Oriented Best Motor Response: Follows commands [place] Coma Scale Score: 15 PHYSICAL EXAM ED [...] Culture. Procedure Abnormality Status --------- ------ Complete Urinalysis[[id number]] Abnormal Final result Please view results for these tests on the individual orders. COMPLETE URINALYSIS WITH REFLEX TO CULTURE Narrative: The following orders were created for panel order Urinalysis complete with reflex to Culture. Procedure Abnormality Status --------- ------ Complete Urinalysis[[id number]] Please view results for these tests on [...] 1,000 mL (1,000 mL IntraVENous New Bag 05/17/246) piperacillin-tazobactam (Zosyn) IVPB 3,375 mg (0 mg [...] Emergency Medicine Provider Terri Simeon PA-C 05/17/24 2948 Emergency Department Encounter [facility] EMERGENCY DEPT Patient: Anmol Reynolds : [...] DO 05/18/24 0435 documented in this encounter [facility] 05-18-2024 Emergency department Note Pt refusing BG check at this time. MD savage. Ella Zavala RN 05/18/24 1233 [facility] 05-18-2024 Emergency department Note Pt refusing continuous IV fluids. MD janette Zavala RN 05/18/24 1059 [facility] 05-18-2024 Emergency department Note Pt moved onto hospital bed, denies any needs or complaints at this time. Ella Zavala RN 05/18/24 1026 [facility] 05-18-2024 Emergency department Note Pharmacy contacted regarding missing oxycodone. Ella Zavala RN 05/18/24 1052 [facility] 05-18-2024 Consult note Associated Order (s): IP CONSULT TO INFECTIOUS DISEASES Images from the original note were not included. [facility] - Infectious Diseases PROPOSAL ENGINEER inpatient Consult Note Reason for Consult: Complicated [...] daptomycin with suppressive minocycline. Pt presented to [facility] ED on 05/17/2024 for evaluation of positive blood cultures. Pt was recently admitted to [facility] 04/14-04/20/2024 with proteus, providencia, and morganella [...] DECOMPRESSION performed by Opal Vigil MD at [facility] OR ORTHOPEDIC SURGERY Right removal of hardware [...] solution 12.5 g 12.5 g IntraVENous PRN eHydi Concepcion MD docusate sodium (Colace) capsule 100 [...] at 05/18/24 0621 100 mL/hr at 05/18/24 06 tamsulosin (Flomax) 24 hr capsule 0.4 mg [...] Resource Strain: Low Risk (04/24/2023) Received from [facility], [facility] Overall Financial Resource Strain (CARDIA) Difficulty [...] blood cx- 1/ [facility] in [facility] ([facility]) 05/05- 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 Hold off on vancomycin for now and follow-up repeat blood cx. If negative, likely CoNS is a contaminant. ID service will continue to follow; plan d/w Dr. Melchor. Rosalinda Fox, [facility] - Infectious Diseases 12:28 PM 05/18/2024 Total time 75 minutes on this day of encounter includes counseling, coordinating plan of care, record and documentation review before and after visit including documentation and time not explicitly included on EMR time stamp for accounting for open encounter. [facility] 05-18-2024 Consult note Associated Order (s): IP CONSULT TO INFECTIOUS DISEASES Images from the original note were not included. [facility] - Infectious Diseases PROPOSAL ENGINEER inpatient Consult Note Reason for Consult: Complicated [...] daptomycin with suppressive minocycline. Pt presented to [facility] ED on 05/17/2024 for evaluation of positive blood cultures. Pt was recently admitted to [facility] 04/14-04/20/2024 with proteus, providencia, and morganella [...] DECOMPRESSION performed by Opal Vigil MD at [facility] [place] ORTHOPEDIC SURGERY Right removal of hardware [...] 0.9 % infusion 100 mL/hr IntraVENous Continuous Nartea Concepcion MD 100 mL/hr at 05/18/24 0621 [...] Resource Strain: Low Risk (04/24/2023) Received from [facility], [facility] Overall Financial Resource Strain (CARDIA) Difficulty [...] CL 109* 108* CO2 20* 22 BUN 13 CREATININE 0.68 0.64* GLUCOSE 172* 143* CALCIUM 8.7 8.6 Recent Labs 05/17/24205705/18/24 0620 WBC 3.5* 7.7 HGB 19.6* 12.5* HCT 60.0* 38.7* PLT 105* 222 LYMPHOPCT 26.9 28.0 MONOPCT 6.8 9.6 BASOPCT 0.8 0.8 NEUTROABS 2.0 4.3 Micro: 05/17- blood cx- 2/2 in process 05/16- blood cx- 1/1 [facility] in clusters ([facility]) 05/05- tissue from bladder- [...] cultures from 05/06 Called micro lab at [place]--> blood cx + CoNS (only one set drawn). Hold off on vancomycin for now and follow-up repeat blood cx. If negative, likely CoNS is a contaminant. ID service will continue to follow; plan d/w Dr. Melchor. Rosalinda Fox CNP [facility] - Infectious Diseases 12:28 PM 05/18/2024 Total time 75 minutes on this day of encounter includes counseling, coordinating plan of care, record and documentation review before and after visit including documentation and time not explicitly included on EMR time stamp for accounting for open encounter. documented in this encounter [facility] 05-18-2024 Emergency department Note Pt refused BG check/meds at this time stating I just want some sleep. Hospital bed ordered for pt. Meds deferred at this time. Ella Zavala RN 05/18/24821 [facility] 05-18-2024 Emergency department Note Pt had a bowel movement, this RN & another RN cleaned pt. Carmen Crews RN 05/18/24 0454 [facility] 05-18-2024 Emergency department Note Pt transport has been requested Carmen Crews RN 05/18/24 0433 [facility] 05-18-2024 Emergency department Note Pt is asleep, w/ unlabored breathing Carmen Crews RN 05/18/24 0155 Carmen Crews RN 05/18/24 0156 T [facility] 05-17-2024 History and physical note Attending [...] DECOMPRESSION performed by Opal Vigil MD at [facility] [place] ORTHOPEDIC SURGERY Right removal of hardware [...] Resource Strain: Low Risk (04/24/2023) [facility] from [facility] Overall Financial Resource Strain (CARDIA) Difficulty [...] S2+, no m/r/g Abdomen: soft, nontender, BS+ PRESS MANAGER: Awake and alert Ext: pulse 2+ DATA: CBC: Recent Labs 05/17/242057 WBC 3.5* RBC 6.51* HGB 19.6* HCT 60.0* MCV 92.2 RDW 16.8* PLT 105* BMP: Recent Labs 05/17/248 NA 136 K 4.4 CL 109* CO2 [...] hydronephrosis, s/p bilateral ureteral stent placement on 7/17/24 - santana replaced - urine culture - [...] - DO NOT do CPR, intubation] [_] [DNR-HAND SINGER - Comfort care only] [_] DNR form [...] Heydi Concepcion MD Division of Hospitalist Medicine [facility] [employer] Phone: 05-17-2024 History and physical note Attending [...] DECOMPRESSION performed by Opal Vigil MD at [facility] [place] ORTHOPEDIC SURGERY Right removal of hardware [...] Resource Strain: Low Risk (04/24/2023) Received from [facility] Overall Financial Resource Strain (CARDIA) Difficulty [...] S2+, no m/r/g Abdomen: soft, nontender, BS+ PRESS MANAGER: Awake and alert Ext: pulse 2+ DATA: [...] - DO NOT do CPR, intubation] [_] [DNR-HAND SINGER - Comfort care only] [_] DNR form [...] Heydi Concepcion MD Division of Hospitalist Medicine [employer] documented in this encounter [facility] 05-17-2024 Physician Emergency department Note EMERGENCY [...] DECOMPRESSION performed by Opal Vigil MD at [facility] [place] ORTHOPEDIC SURGERY Right removal of hardware [...] Resource Strain: Low Risk (04/24/2023) Received from [facility] Overall Financial Resource Strain (CARDIA) Difficulty [...] Homeless in the Last Year: No SCREENINGS [place] Coma Scale Best Eye Response: Spontaneous Best Verbal Response: Oriented Best Motor Response: Follows commands [place] Coma Scale Score: 15 PHYSICAL EXAM ED [...] Culture. Procedure Abnormality Status --------- ------ Complete Urinalysis[[id number]] Abnormal Final result Please view results for these tests on the individual orders. COMPLETE URINALYSIS WITH REFLEX TO CULTURE Narrative: The following orders were created for panel order Urinalysis complete with reflex to Culture. Procedure Abnormality Status --------- ------ Complete Urinalysis[[id number]] Please view results for these tests on [...] Emergency Medicine Provider Terri Simeon PA-C 05/17/24 7912 [facility] 05-17-2024 Physician Emergency department Note Emergency Department Encounter [facility] EMERGENCY DEPT Patient: Anmol Reynolds : [...] [employer] Rodney Guerrero DO 05/18/24 0435 [facility] [employer] Phone: 05-15-2024 History of Present illness Narrative HISTORY OF PRESENT ILLNESS 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 HIPAA: Verbal permission granted from patient to discuss case, including protected health information, in front of family / friends in room at the time of the evaluation. Anmol Reynolds is a very pleasant 63 year old male here as new patient for a second opinion of MRI results. In 2019, pt had his first back surgery performed by [facility] which was an interbody fusion. 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 At that point, the hospital took the hardware out and did not replace it with the goal of treating the infection. 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 After the infection was treated, [facility] extended his fusion, decompressed the back, [...] Resource Strain: Low Risk (04/24/2023) Received from [facility] Overall Financial Resource Strain (CARDIA) Difficulty of Paying Living Expenses: Not hard at all Food Insecurity: No Food Insecurity (05/05/2024) Received from [facility] Hunger Vital Sign Worried About Running Out of Food in the Last Year: Never true Ran Out of Food in the Last Year: Never true Transportation Needs: No Transportation Needs (05/05/2024) Received from [facility] PRAPARE - Transportation Lack of Transportation (Medical): No Lack of Transportation (Non-Medical): No Intimate Partner Violence: Not At Risk (05/05/2024) Received from [facility] Humiliation, Afraid, Rape, and Kick questionnaire Fear [...] Dr. Otis Mejia. documented in this encounter [facility] 05-13-2024 Telephone encounter Note Call received back from nurse Packer who states blooc cultures were missed, but she will have them done on Thursday when the lab come back to the facility. [facility] 05-13-2024 Miscellaneous Notes Call received back from nurse Birdie who states blooc cultures were missed, but she will have them done on Thursday when the lab come back to the facility. Called and spoke to nurse Birdie at [facility] to obtain blood culture results that were ordered to be done on 05/06/24. She did state she cannot tell if they were done, she will call their lab and have the results faxed to us. If they were not done, she will have them obtained. I did ask that she please let us know what the outcome it. documented in this encounter [facility] 05-13-2024 Telephone encounter Note Called and spoke to nurse Birdie at [facility] to obtain blood culture results that were ordered to be done on 05/06/24. She did state she cannot tell if they were done, she will call their lab and have the results faxed to us. If they were not done, she will have them obtained. I did ask that she please let us know what the outcome it. [facility] 05-10-2024 Telephone encounter Note Pt calling requesting provider to follow up regarding MRI. Pt was unable to provide telephone, address or SSN. No information was provided at this time. [facility] 05-10-2024 Miscellaneous Notes Pt calling requesting provider to follow up regarding MRI. Pt was unable to provide telephone, address or SSN. No information was provided at this time. documented in this encounter [facility] 05-06-2024 Nurse Note Patient requested discharge transportation be provided by his brother, who drives a wheelchair accessible van. Spoke with nurse at [facility] who was aware that patient was returning this evening and was agreeable to patient being transported by private vehicle. IV Dc'd. Bedside RN called report. Patient transferred via [place]rett lift to personal wheelchair and was escorted down to main entrance where his brother picked him up in van [facility] 05-06-2024 Nurse Note Patient requested discharge transportation be provided by his brother, who drives a wheelchair accessible van. Spoke with nurse at [facility] who was aware that patient was returning this evening and was agreeable to patient being transported by private vehicle. IV Dc'd. Bedside RN called report. Patient transferred via [place]rett lift to personal wheelchair and was escorted down to main entrance where his brother picked him up in van documented in this encounter [facility] 05-06-2024 Note Formatting of this n ote is different from the original. Images from the original note were not included. Referral placed to [facility] Await review and response regarding ability to accept. TCC notified. [facility] 05-06-2024 Note Formatting of this n ote is different from the original. Images from the original note were not included. Referral placed to [facility] Await review and response regarding ability to accept. TCC notified. [facility] 05-06-2024 Miscellaneous Notes Images from the original note were not included. Referral placed to [facility] Return - [facility] Await review and response regarding ability to accept. TCC notified. Addendum to earlier note: Pt to be discharged (returned) back to [facility]. Bedside RN aware, SW aware and will plan transport. Referral placed to [facility] Return - [facility] via [facility] per TCC request. Await review and response regarding ability to accept. TCC notified. Care Managment Initial Assessment Date: 05/06/2024 Patient Name: Anmol Reynolds : 1960 Patient Information Source of Information: Patient Cognition/Language: WFL - Within Functional Limits Permission given to speak with patient fundraising sale representative/caregiver as indicated: Confirmation of Payer with patient/family: Yes Payer Name: Medicare A/B [place]: No Confirmation of Primary Care Physician: Confirmed PCP Name: Ambrosio Monroy, Seen in last 2 years?: Yes Primary Caregiver: Self If assistance needed, confirmed caregiver ready, willing and able to care for patient at discharge: Confirmed with: Living Arrangements Current Residence: Number of Floors Number of Entry Steps: Bed/Bath Levels: Facility: Nursing Facility Skilled Facility Name: [facility] Plan to Return: Yes Lives with: Other (Comment) ([facility]) Support Systems: Parent, Family members, Friends/neighbors [...] Prep Assistance Provider Name: [facility] Laundry/Cleaning: Assistance Provider Laundry/Cleaning Assistance Provider Name: [facility] Finances/Bill Paying: Independent Communication: Independent Types of Care Services/Equipment Utilized Care Services: Dialysis Type: Durable Medical Equipment: Wheelchair (standard or power), Hospital Bed, Other (Comment) DME Provider: Santana catheter (chronic) Patient's Goal/Discharge Plan Patient expects to be discharged to: Return to [facility] Discharge Planning Actions: [facility] Facility referral indicated [place] of choice: [place] discussed Patient's Choice Rights and [...] for kidney stones bilaterally. Pt is from [facility] and is agreeable to return. Pt states his mother is across the [place] from him. He has a chronic santana and R picc in place. On iv ceftriaxone. Regular diet. Pt had PT eval ordered. Met with pt at bedside; explained role of tcc. Pt wanting to return to [facility] Has chronic santana catheter. He has an electric w/c. Anticipate discharge (return) to [facility] today if medically stable. Anel Lima [...] Ebl: Drains 6fr X 24cmJJ Santana 16 Somali Santana catheter Specimen: Bladder calculus for stone [...] 05/06/24 5:11 PM Spoke with the nurse Aguilar from the facility pt came from. The nurse confirmed that pt did not have anything to eat after midnight and only sips of water with morning meds. See MAR for meds. documented in this encounter [facility] 05-06-2024 Hospital Discharge instructions Bianca Rodgers [...] Unit/Room#: H-5133/H-5133 A Discharging Unit Phone Number: [phone] Emergency Contact: Extended Emergency Contact Information Primary [...] DECOMPRESSION performed by Opal Vigil MD at [facility] [place] ORTHOPEDIC SURGERY Right removal of hardware [...] assistance Toileting Total assistance Feeding Minimal assistance Manager Of Administration Minimal assistance Med Delivery yes Wound Care [...] are sent with patient): wheelchair RN SIGNATURE: {E-signature:63929} CASE MANAGEMENT/SOCIAL WORK SECTION Inpatient Status Date: Discharging to Facility/ Agency Name: Address: Phone: Fax: Dialysis Facility (if applicable) Name: Address: Dialysis Schedule: Phone: Fax: Cellophane Bag Machine Operator/Experimental Preflight Mechanic signature: {E-signature:21352} PHYSICIAN SECTION Name: Anmol Reynolds Prognosis: {Rehab Prognosis:86702} Condition at Discharge: {Patient Condition:62245} Rehab Potential (if transferring to Rehab): {Rehab Prognosis:71327} Recommended Labs or Other Treatments After Discharge: The individual is being admitted to a nursing facility directly from an [facility] or a unit of a [facility] that is not operated by or licensed by [facility] under section 5119.14 or 5160-3-15.1 5 The individual requires the level of services provided by a nursing facility for the condition for which he or she was treated in the hospital and, Physician Certification: I certify the above information and transfer of Anmol Reynolds is necessary for the continuing treatment of the diagnosis listed and that he requires {ADELINE Level of Care:39185} for {greater less than:07208} 30 days. Update Admission H&P: {ADELINE Changes in H&P:62305} PHYSICIAN SIGNATURE: {E-signature:81119} The following attachments cannot be sent through Care Everywhere.Laser Lithotripsy for Kidney Stones Discharge Instructions (Tuvaluan)How to Care for Your Santana Catheter (Tuvaluan)documented in this encounter [facility] 05-06-2024 Note Formatting of this n ote might be different from the original. Addendum to earlier note: Pt to be discharged (returned) back to [facility]. Bedside RN aware, VIVIAN aware and will plan transport. [facility] 05-06-2024 Note Formatting of this n ote might be different from the original. Addendum to earlier note: Pt to be discharged (returned) back to [facility]. Bedside RN aware, VIVIAN aware and will plan transport. [facility] 05-06-2024 Hospital course Narrative Images from the original note were not included. 48 Hour Discharge Summary Note Patient ID: Anmol Reynolds [id number] 63 y.o. 1960 Admit date: 05/05/2024 Discharge [...] MD. PGY-2 Urology documented in this encounter [facility] 05-06-2024 Note Formatting of this n ote might be different from the original. Referral placed to [facility] via [facility] per TCC request. Await review and response regarding ability to accept. TCC notified. Electronically signed by [facility] Juana Villagomezh [facility] 05-06-2024 Note Formatting of this n ote might be different from the original. Referral placed to [facility] via [facility] per TCC request. Await review and response regarding ability to accept. TCC notified. Electronically signed by [facility] Juana Villagomezh [facility] 05-06-2024 Note Formatting of this n ote might be different from the original. Care Managment Initial Assessment Date: 05/06/2024 Patient Name: Anmol Reynolds : 1960 Patient Information Source of Information: Patient Cognition/Language: WFL - Within Functional Limits Permission given to speak with patient fundraising sale representative/caregiver as indicated: Confirmation of Payer with patient/family: Yes Payer Name: Medicare A/B [place]: No Confirmation of Primary Care Physician: Confirmed PCP Name: Ambrosio Esterle, DO Seen in last 2 years?: Yes Primary Caregiver: Self If assistance needed, confirmed caregiver ready, willing and able to care for patient at discharge: Confirmed with: Living Arrangements Current Residence: Number of Floors Number of Entry Steps: Bed/Bath Levels: Facility: Nursing Facility Skilled Facility Name: [facility] Plan to Return: Yes Lives with: Other (Comment) ([facility]) Support Systems: Parent, Family members, Friends/neighbors [...] Prep Assistance Provider Name: [facility] Laundry/Cleaning: Assistance Provider Laundry/Cleaning Assistance Provider Name: SNF Finances/Bill Paying: Independent Communication: Independent Types of Care Services/Equipment Utilized Care Services: Dialysis Type: Durable Medical Equipment: Wheelchair (standard or power), Hospital Bed, Other (Comment) DME Provider: Santana catheter (chronic) Patient's Goal/Discharge Plan Patient expects to be discharged to: Return to [facility] Discharge Planning Actions: [facility] Facility referral indicated [place]: [place] discussed Patient's Choice Rights and [...] for kidney stones bilaterally. Pt is from [facility] and is agreeable to return. Pt states his mother is across [place] from him. He has a chronic santana and R picc in place. On iv ceftriaxone. Regular diet. Pt had PT eval ordered. Met with pt at bedside; explained role of tcc. Pt wanting to return to [facility] Has chronic santana catheter. He has an electric w/c. Anticipate discharge (return) to [facility] today if medically stable. Anel Lima RN T [facility] 05-06-2024 Note Formatting of this n ote might be different from the original. Care Managment Initial Assessment Date: 05/06/2024 Patient Name: Anmol Reynolds : 1960 Patient Information Source of Information: Patient Cognition/Language: WFL - Within Functional Limits Permission given to speak with patient fundraising sale representative/caregiver as indicated: Confirmation of Payer with [...] Levels: Facility: Nursing Facility Skilled Facility Name: [facility] Plan to Return: Yes Lives with: Other (Comment) ([facility]) Support Systems: Parent, Family members, Friends/neighbors Activities [...] Prep Assistance Provider Name: [facility] Laundry/Cleaning: Assistance Provider Laundry/Cleaning Assistance Provider Name: [facility] Finances/Bill Paying: Independent Communication: Independent Types of Care Services/Equipment Utilized Care Services: Dialysis Type: Durable Medical Equipment: Wheelchair (standard or power), Hospital Bed, Other (Comment) DME Provider: Santana catheter (chronic) Patient's Goal/Discharge Plan Patient expects to be discharged to: Return to [facility] Discharge Planning Actions: [facility]pc Facility referral indicated [place] of [place]: [place] discussed Patient's Choice Rights and [...] for kidney stones bilaterally. Pt is from [facility] and is agreeable to return. Pt states his mother is [place]. He has a chronic santana and R picc in place. On iv ceftriaxone. Regular diet. Pt had PT eval ordered. Met with pt at bedside; explained role of tcc. Pt wanting to return to [facility] Has chronic santana catheter. He has an electric w/c. Anticipate discharge (return) to [facility] today if medically stable. Anel Lima RN T [facility] [employer] 05-06-2024 History of Present illness Narrative UROLOGY PROGRESS NOTE PATIENT NAME: Anmol Reynolds DATE OF : 1960 ADMISSION DATE: 05/05/2024 TODAY'S DATE: 05/06/2024 Subjective Pt evalauted at bedside in NAD. MARITAON. POD1 of laser lithotripsy and b/l ureteral [...] MD PGY-2 Urology documented in this encounter [facility] 05-05-2024 Plan of care note The [...] Recommendations to address these barriers include none. T [facility] 05-05-2024 Note Formatting of this n ote might be different from the original. Belongings returned to patient bedside. Meal tray ordered [facility] 05-05-2024 Note Formatting of this n ote might be different from the original. Belongings returned to patient bedside. Meal tray ordered [facility] 05-05-2024 Note Formatting of this n [...] Ebl: Drains 6fr X 24cmJJ Santana 16 Somali Santana catheter Specimen: Bladder calculus for stone [...] removal. Dashawn Grimm MD 05/06/24 5:[address] [facility] 05-05-2024 Note Formatting of this n [...] Ebl: Drains 6fr X 24cmJJ Santana 16 Somali Santana catheter Specimen: Bladder calculus for stone [...] fragmented. The debris was removed with the Naikta syringe. The bladder was inspected there are [...] removal. Dashawn Grimm MD 05/06/24 5:[address] [facility] 05-05-2024 Attending History and physical note Images [...] 1:20 PM Source Note - Radha Lucas, RN DIABETES - PROPOSAL ENGINEER - 04/27/2024 2:00 PM EDT Images from the original note were not included. Comprehensive Pre Surgical History and Physical ? Name: Anmol Reynolds : 1960 (Age-63 y.o.) Date of Service: Pt seen/examined on 04/27/2024 Procedure Information Date/Time: 05/05/24 1230 Procedures: CYSTOSCOPY (Urethra) - 120 MINS POSSIBLE CYSTOLITHOLAPAXY (Urethra) BILATERAL URETEROSCOPY ASTRID LASER LITHOTRIPSY (Bilateral: Urethra) BILATERAL URETERAL STENT CHANGE (Bilateral: Urethra) Location: [facility] OR [address] [place] [address] Operating Room Surgeons: Dashawn Grimm MD Chief [...] days. Denies prior problems with anesthesia. No [facility] problems with anesthesia Denies c/o chest pain, dizziness, sob, syncope, palpitations, tachycardia, cough, wheezing, nvd, fever or chills Wheelchair bound (paraplegia)- No chest pain or sob with normal activity(upper body activity) Do you have a history of chronic opioid use? oxycodone per pain management ? Denies history of [place], CAD, CHF, CVA, seizures, asthma/copd, [place], PE/DVT [...] date: Other reduced mobility No date: Paraplegia ([facility]) No date: Sciatica No date: Spinal stenosis of lumbar region with neurogenic claudication No date: Type 2 diabetes mellitus without complication ([facility]/HCC) ([facility]) No date: Urinary calculus, unspecified No date: UTI (urinary tract infection) Past Surgical History: Past Surgical History: No date: ANKLE SURGERY; Right Comment: He has a titanium plate to the right ankle No date: KNEE SURGERY; Left Comment: ACL No date: KNEE SURGERY; Left Comment: removal of screw 10/24/2020: LAMINECTOMY; Left Comment: LEFT BILATERAL L2-3-4-5 DECOMPRESSION performed by Opal Vigil MD at [facility] [place] No date: ORTHOPEDIC SURGERY; Right Comment: [...] QT Interval 426 QTC Interval 477 P Casscoe 10 QRS Casscoe 28 T Wave Casscoe 28 NM Interval 159 Impression Sinus rhythm Electronically Signed On 04-20-2024 15:22:00 EDT by Jax Wiggins ECHO and EF:None on file METS __Wheelchair bound (paraplegia)- No chest pain or sob with normal activity (upper body activities) Electronically signed by: Radha Lucas APRN - PROPOSAL ENGINEER Date: 04/27/2024 at 3:18 PM [employer] Phone: 05-05-2024 History and physical note Images [...] Source Note - Radha Lucas APRN - PROPOSAL ENGINEER - 04/27/2024 2:00 PM EDT Images from the original note were not included. Comprehensive Pre Surgical History and Physical ? Name: Anmol Reynolds : 1960 (Age-63 y.o.) Date of Service: Pt seen/examined on 04/27/2024 Procedure Information Date/Time: 05/05/24 1230 Procedures: CYSTOSCOPY (Urethra) - 120 MINS POSSIBLE CYSTOLITHOLAPAXY (Urethra) BILATERAL URETEROSCOPY ASTRID LASER LITHOTRIPSY (Bilateral: Urethra) BILATERAL URETERAL STENT CHANGE (Bilateral: Urethra) Location: [facility] OR [address] [place] [address] Operating Room Surgeons: Dashawn Grimm MD Chief [...] days. Denies prior problems with anesthesia. No [facility] problems with anesthesia Denies c/o chest pain, dizziness, sob, syncope, palpitations, tachycardia, cough, wheezing, nvd, fever or chills Wheelchair bound (paraplegia)- No chest pain or sob with normal activity(upper body activity) Do you have a history of chronic opioid use? oxycodone per pain management ? Denies history of [place], CAD, CHF, CVA, seizures, asthma/copd, WEST, PE/DVT [...] DECOMPRESSION performed by Opal Vigil MD at [facility] [place] No date: ORTHOPEDIC SURGERY; Right Comment: [...] QT Interval 426 QTC Interval 477 P Casscoe 10 QRS Casscoe 28 T Wave Casscoe 28 NM Interval 159 Impression Sinus rhythm Electronically Signed On 04-20-2024 15:22:00 EDT by Jax Wiggins ECHO and EF:None on file METS __Wheelchair bound (paraplegia)- No chest pain or sob with normal activity (upper body activities) Electronically signed by: Radha Lucas APRN - PROPOSAL ENGINEER Date: 04/27/2024 at 3:18 PM documented in this encounter [facility] 05-05-2024 Note Formatting of this n ote might be different from the original. Spoke with the nurse Aguilar from the facility pt came from. The nurse confirmed that pt did not have anything to eat after midnight and only sips of water with morning meds. See MAR for meds. [facility] 05-05-2024 Note Formatting of this n ote might be different from the original. Spoke with the nurse Aguilar from the facility pt came from. The nurse confirmed that pt did not have anything to eat after midnight and only sips of water with morning meds. See MAR for meds. [facility] 05-04-2024 Telephone encounter Note R/S patient for 06/14 at 8:30a, also contacted [facility] to confirm transportation [facility] 05-04-2024 Miscellaneous Notes R/S patient for 06/14 at 8:30a, [facility] Name of Caller: Doug Contact Reason for Appointment: Reschedule 04/21/24 appointment Office Name: Interventional Pain Management documented in this encounter [facility] 05-04-2024 Telephone encounter Note Name of Caller: [facility] Contact Reason for Appointment: Reschedule 04/21/24 appointment Office Name: Interventional Pain Management [facility] 04-27-2024 Telephone encounter Note Call placed to pt. No answer no VM set up. No return calls from [facility]. Pt is scheduled for PAT today. [facility] 04-27-2024 Miscellaneous Notes Call placed to pt. No answer no VM set up. No return calls from [facility]. Pt is scheduled for PAT today. Call placed to pt to advise of SX information. No answer, unable to LVM. If pt calls back into office please advise of below information or transfer to me. Doctor: JORGE OLIVA (arrive 15 min early): 04/27 @2pm [facility] PAT instructions: Please bring photo ID, insurance card, list of all current medications Surgery: 05/05 @12:30 [facility] Surgery arrival time: 10:30am Surgery instructions: [...] DIAGNOSIS: Bladder calculus, bilateral ureteral stones FACILITY: [facility] or [facility] DETAILS: OUTPT ANESTHESIA: GENERAL TIME REQUESTED: 2hr DATE REQUESTED: Must be minimum of 2 weeks from today due to infection SURGERY ORDERS: Already placed by Joe Hammer NP on 04/15/2024 POST OP FOLLOW UP: cysto stent removal 2 wks documented in this encounter [facility] 04-26-2024 Telephone encounter Note Called pt and discussed his MRI L spine results. He has [facility] rehab follow up scheduled. Recommended Spine Surgery opinion. No change in clinical condition from last visit. Vaishali Pierre DO [facility] 04-26-2024 Miscellaneous Notes Called pt and [...] message. I called nursing staff at the [place] where he lives and was able to leave a message with nursing regarding his MRI findings and that I would like to speak with him and recommendations to schedule visit with [facility] rehab and spine surgery. Vaishali Pierre DO Telephoned CT pt at dinner and administrative receptionist states she cannot pull pt away from dinner. Called pt regarding his MRI, which showed: IMPRESSION: Acute-subacute sacral insufficiency fracture at S2. Postoperative and degenerative changes of the lumbar spine with linear granulation tissue at L2-3 and tethering of the cauda equina suggesting sequelae of chronic arachnoiditis. No evidence of osteomyelitis discitis or epidural abscess. He [facility] of the [facility] lives, but I was able [...] to the above findings.He does not have [employer] set up to message. Vaishali Pierre DO documented in this encounter [facility] 04-26-2024 Telephone encounter Note Called pt again. Staff at the [facility] stated he was unable to come to the phone and asked for call back later in the day. Vaishali Pierre DO [facility] 04-25-2024 Telephone encounter Note Called pt and reached staff, but he was unable to come to the phone. Will try again tomorrow. Vaishali Pierre DO [facility] 04-25-2024 Telephone encounter Note Call placed [...] counter vitamins 3 days prior to surgery [facility] 04-25-2024 Miscellaneous Notes Call placed to pt to advise of SX information. No answer, unable to LVM. If pt calls back into office please advise of below information or transfer to me. Doctor: JORGE OLIVA (arrive 15 min early): 7/24 @2pm [facility] PAT instructions: Please bring photo ID, insurance card, list of all current medications Surgery: 05/05 @12:30 [facility] Surgery arrival time: 10:30am Surgery instructions: [...] DIAGNOSIS: Bladder calculus, bilateral ureteral stones FACILITY: [facility] or [facility] DETAILS: OUTPT ANESTHESIA: GENERAL TIME REQUESTED: 2hr DATE REQUESTED: Must be minimum of 2 weeks from today due to infection SURGERY ORDERS: Already placed by Joe Hammer NP on 04/15/2024 POST OP FOLLOW UP: cysto stent removal 2 wks documented in this encounter [facility] 04-21-2024 Telephone encounter Note Call placed to pt but no answer at this time. Pt does not have VM set up so unable to LVM. No MyChart set up. Will continue to reach out to pt. [facility] 04-20-2024 Miscellaneous Notes Dc to [facility] this evening at 6:30. [facility] messaged the facility with dc time and left a voicemail message for patients brother with dc time and arrangements. Re faxed opat to [phone]. Discharge med list transmitted to return back to [facility] via [facility] per [facility] request. Images from the original note were not included. Care Management Progress Note Chart reviewed. Patient remains on . Discussed patient in rounds. Noted discharge order. Noted patient received PICC placement today. Faxed opat for Ertapenem IV to [phone]. STRAIGHTENER AND ALIGNER tasked to send final updates to [facility]. SW tasked to arrange transportation today when ready. Patient will need covid test resulted before leaving hospital. TCC section of ADELINE completed. DC plan: return to [facility], no auth needed. Bed hold. Discharge Milestones and Delays Expected date/time: 04/20/2024 Medically ready since: 04/20/2024 Disposition: [facility] Facility Transport status: No current request Discharge Milestones Place discharge order Complete med reconciliation Case mgmt discharge readiness Clinical Stability Diagnostic Workup Imaging Results Patient Education Complete Expected Discharge History Expected Date/Time Set By Reviewed At 04/20/2024 Otis Mckenzie DO 04/20/2024 11:42 AM 04/18- From [facility]. 04/20- Getting a picc today for IV antibiotics, [facility]. 04/20/2024 LINDSAY Gallardo 04/20/2024 9:34 AM 04/20/2024 LINDSAY Gallardo 04/19/2024 9:13 AM 04/18- From [facility]. 04/20/2024 Chrissie Rodrigues RN 04/19/2024 7:55 AM [...] Sent updated notes to return back to [facility] per [facility] request. Await review [...] chronic santana in place. Pt is from [facility]. Tasked STRAIGHTENER AND ALIGNER to send updated clinicals to facility. Pt is a bedhold, no auth required to return. Will however need a covid test before returning to facility. Discharge plan is [facility] when medically ready. scheduling manager to follow and assist as needed. [...] of Information: Patient Name/Contact Information: Ronald Reynolds [phone] brother and daughter Sumi Reynolds Cognition/Language: WFL - Within Functional Limits Permission given to speak with patient fundraising sale representative/caregiver as indicated: Yes Confirmation of Payer with patient/family: Yes Payer Name: medicare and medicaid [place]: No Confirmation of Primary Care Physician: Confirmed PCP Name: house doctor at [facility]-Dr. Dupont Seen in last 2 years?: Yes Primary Caregiver: Other (Comment) If assistance needed, confirmed caregiver ready, willing and able to care for patient at discharge: Yes Confirmed with: staff at f Living Arrangements Current Residence: (ecf) Number of Floors 1 Number of Entry Steps: (level) Bed/Bath Levels: Both first floor Facility[facility] Facility Name: [facility] Plan to Return: Yes Lives with: (ecf) Support Systems: Family members, Comments (Other) (facility) Activities of Daily Living Ambulation: Total [facility] (everett lift to wc) Bathing/Dressing: Total [facility] Elimination/Continence/Toileting: Total Care Feeding: Assistance Who Assists with Activities of Daily Living: [facility] staff Instrumental Activities of Daily Living Prescription Coverage: Yes Pharmacy Used: [facility] Medication Management: Medication dispenser Who assists with medication securing and setup?: [facility] Transportation/Shopping: Assistance Provider Transportation/Shopping Assistance Provider Name: facility Transportation Mode: Payer provided transport service Needs Assistance with Transportation at Discharge: Yes Meal Preparation: Assistance Provider Meal Prep Assistance Provider Name: [facility] Laundry/Cleaning: Assistance Provider Laundry/Cleaning Assistance Provider Name: [facility] Finances/Bill Paying: Assistance Provider Finances/Bill Payer Assistance Provider Name: brother Communication: Independent, Emergency Call System Types of Care Services/Equipment Utilized Care Services: Dialysis Type: NA Durable Medical Equipment: Wheelchair (standard or power) Patient's Goal/Discharge Plan Patient expects to be discharged to: return to [facility] Discharge Planning Actions: Continue to follow Patient's Choice Rights and [employer] and Collaborative Relationships Disclosed as Indicated for Post-Acute Care: Yes Interdisciplinary Team Engagement: Social Work Referral for: Additional Information: Inpatient status from [facility] with sepsis. Urology consulted due to bilateral [...] of paraplegia and states has been at [facility] for a year and wishes to return upon discharge. Tasked STRAIGHTENER AND ALIGNER to place [facility]. He is everett lift to at facility. Will need to monitor for antibiotic needs upon discharge. Did call facility to obtain daughter's phone number for patient and updated primary care nurse with this information. .. Isabel Kirby RN Referral placed to return back to [facility] via [facility] per T[facility] request. Await [...] right 7 x 26 double-J stent Santana-22 Somali coud catheter Specimen: Complications None; patient tolerated the procedure well. Findings: He is a 63-year-old paraplegic [facility] resident with a chronic Santana catheter. He [...] 6 x 26 stent was passed. 22 Somali coud catheter was placed to straight drain. [...] bladder. The bladder was left full. 22 Somali coud catheter was placed into the bladder. He was awakened and transferred to the recovery room. ICU was consulted for admission due to the hypotension and need for pressors during the case as well as the lactic acidosis. Dashawn Grimm MD 04/14/24 10:49 PM documented in this encounter [facility] 04-20-2024 Hospital course Narrative Images from [...] CONSULT TO INFECTIOUS DISEASES IP CONSULT TO BRIMMING MACHINE OPERATOR Discharge Instructions: Diet: Adult diet Regular; 5 [...] PLT 79* 88* 121* BMP: Recent Labs 04/18/2471104/19/248 04/20/24 0359 NA 140 138 138 K 3.1* 3.5 3.8 CL 105 107 108* CO2 27 26 23 BUN 15 14 14 CREATININE 0.51* 0.44* 0.44* GLUCOSE 74 153* 284* CALCIUM 7.8* 7.9* 7.6* ANIONGAP 7 5 6 LIVER PROFILE: Recent Labs 04/18/2471104/19/248 04/20/24 0359 AST 18 19 19 ALT [...] Complexity: follow up within 7-14 calendar days (59356) [x] Severe Complexity: follow up within 7 calendar days (17721) Follow up Testing, Pending results or Referrals [...] DO Division of Hospitalist Medicine Inpatient Medical Services/[facility] 04/20/2024, 11:42 AM Total time Spent on Discharge: 32 minutes documented in this encounter [facility] 04-20-2024 Hospital Discharge instructions Faby Maxwell [...] DECOMPRESSION performed by Opal Vigil MD at [facility] [place] ORTHOPEDIC SURGERY US PLACE URETAL STENT [...] assistance Toileting Total assistance Feeding Minimal assistance Manager Of Administration Minimal assistance Med Delivery yes Wound Care Documentation and Therapy: Wound/Incision 04/14/24 Pressure Injury Sacrum (Active) Site Assessment Unable to assess 04/19/242039 [place]-Wound Assessment Clean;Dry;Intact 04/19/24 204 Drainage Description Red 04/19/24 1651 Odor None 04/18/24 0328 Drainage Amount Scant 04/19/24 1651 Treatments Cleansed;Zinc - oxide paste 04/19/24 165 Primary Dressing Foam 04/19/24 165 Dressing Status Clean, dry & intact 04/19/242039 Number of days: 5 Wound/Incision 04/14/24 Foot Anterior;Right (Active) Wound Image 04/14/24 2258 Number of days: 5 Wound/Incision 04/14/24 Foot [...] Date: 04-14-2024 Discharging to Facility/ Agency Name: [facility] Address: [address] [place] [address] Dialysis Facility (if applicable) Name: Address: Dialysis Schedule: Phone: Fax: Cellophane Bag Machine Operator/Experimental Preflight Mechanic signature: {E-signature:33877} ICIAN SECTION Name: Anmol Reynolds Prognosis: {Rehab Prognosis:05977} Condition at Discharge: {Patient Condition:84797} Rehab Potential (if transferring to Rehab): excellent Recommended Labs or Other Treatments After Discharge: blood cultures to be obtained on 05/06/24 The individual is being admitted to a nursing facility directly from an [facility] or a unit of a [facility] that is not operated by or licensed by [facility] under section 5119.14 or 5160-3-15.1 5 The individual requires the level of services provided by a nursing facility for the condition for which he or she was treated in the hospital and, Physician Certification: I certify the above information and transfer of Anmol Reynolds is necessary for the continuing treatment of the diagnosis listed and that he requires usp facility for less than 30 days. Update Admission H&P: No change in H&P PHYSICIAN SIGNATURE: documented in this encounter [facility] 04-20-2024 Nurse Note Patient tolerated procedure well. Transferring back to nursing floor. Patient arrived from [facility], AMOL Enriquez was in to speak with the patient regarding PICC, consent was obtained. Patient was placed supine on exam table prepped and draped in sterile fashion. Telemetry monitors placed, vitals being monitored. documented in this encounter [facility] 04-19-2024 History of Present illness Narrative [...] Fluid Accumulation: Mild Extremities (+2 kenroy LE) Dragger Out Strength: Not Performed Nutrition Assessment: per MD [...] On: Kcal/kg Weight Used for Energy Requirements: [place] Weight for Energy Calculation (kg): 82 kg Total Energy Requirements (kcals/day): 4470-8940 (28-30) Weight Used for Protein Requirements: [place] Weight in Kg Used for Protein Requirements: [...] (183 lb) % Weight Change (Calculated): 12.2 [place] Body Weight (lbs) (Calculated): 196 lbs [place] Body Weight (Kg) (Calculated): 89 kg % [place] Body Weight (Calculated): 104.7 % BMI (kg/m2) (Calculated): 26.5 Weight Adjustment For: Paraplegia % Weight Adjustment: 7.5 - Paraplegia Total Adjusted Percentage (Calculated): 7.5 Adjusted [place] Body Weight (lbs) (Calculated): 181.3 lbs Adjusted [place] Body Weight (kg) (Calculated): 82.41 kg Adjusted [...] Continue current diet Zonia Dumont RD Contact: *[phone] or via Secure Chat Images from the [...] #1 - Assess for effectiveness of treatment [[id number]] Blood, Venous Preliminary result Component Value Blood Culture Blood culture incubation started P 04/16/2024 0654 04/16/2024 1101 Blood culture Site #2 - Assess for effectiveness of treatment [[id number]] Blood, Venous Preliminary result Component Value Blood Culture Blood culture incubation started P 04/15/2024 1713 04/15/2024 2208 MRSA by PCR [[id number]] (Abnormal) ESwab from Nasal Final result Component Value Staphylococcus aureus Detected Abnormal mecA gene Not Detected 04/15/2024 0103 04/16/2024 1135 Urine culture [[id number]] (Abnormal) Urine, Clean Catch Preliminary result Component Value Urine Culture Normal urogenital gosia present P 50,000-90,000 CFU/mL Providencia stuartii Abnormal P 04/14/2024 1631 04/16/2024 1204 Blood culture Site #1 - Suspected Infection [[id number]] (Abnormal) Blood, Venous Preliminary result Component Value Blood Culture Proteus mirabilis Panic P Providencia stuartii Panic P Morganella morganii Panic P 04/14/2024 1631 04/16/2024 1204 Blood culture Site #2 - Suspected Infection [[id number]] (Abnormal) Blood, Venous Preliminary result Component Value Blood Culture Morganella morganii Panic P For identification and/or sensitivity, refer to culture collected on: 04/14/24 at 16:31, [id number]. This is an edited result. Previous organism was Gram-negative bacilli on 04/15/2024 at 0835 EDT. 04/14/2024 1631 04/15/2024 0828 Blood Culture Identification - Anaerobic [[id number]] (Abnormal) Blood, Venous Final result Component Value Proteus species Detected Abnormal Lines: PIV Radiography/Echo/Other: Procedure Component Value Units Date/Time FL pyelogram retrograde [[id number]] Resulted: 04/14/242216 Order Status: Completed Updated: 04/14/242216 Narrative: There is no interpretation needed for this exam. CT abdomen pelvis wo IV contrast [[id number]] Collected: 04/14/241928 Order Status: Completed Updated: 04/14/241938 Narrative: Patient Name: ANMOL REYNOLDS : 1960 [facility]#: [id number] Exam Date/Time: 04/14/2024 19:28 Procedure: CT ABDOMEN PELVIS WO IV CONTRAST Ordering Provider: [facility] Reason For Exam: Sepsis CT ABDOMEN AND [...] 7:37 PM EDT XR chest 1 view [[id number]] Collected: 04/14/241650 Order Status: Completed Updated: 04/14/241652 Narrative: [facility] Name: [facility]OLDS [facility] 1960 [id number] Exam Date/Time: 04/14/2024 16:39 Procedure: XR CHEST 1 VIEW [facility]ing [facility] Reason For Exam: sepsis INDICATION: Sepsis. VIEWS: [...] no fungi. Discontinue fluconazole. Continue meropenem through water resources business segment leader, then, tomorrow change to ertapenem (1st dose [...] for open encounter. Hospitalist Progress Note 04/19/2024 [phone]: Please page me ([phone]) for patient care issues. [phone]: Please page [facility] Hospitalist for any issues. Subjective: Admit Date: 04/14/2024 PCP: AMBROSIO MONROY, Room#: B2-254/B2-254 A Interval History: patient admitted [...] Sciatica Type 2 diabetes mellitus without complication ([facility]) (HCC) LABS: CBC: Recent Labs 04/17/2434104/18/2471104/19/24427 WBC 7.9 [...] Jonah Division of Hospitalist Medicine Inpatient Medical Services/[facility] PAGER: [email or web address] chat Hospitalist Progress Note 04/18/2024 [phone]: Please page me ([phone]) for patient care issues. [phone]: Please page [facility] Hospitalist for any issues. Subjective: Admit Date: 04/14/2024 PCP: AMBROSIO MONROY DO Room#: B2-254/B2-254 A Interval History: No overnight issues. Denies chest pain or sob. No abdominal pain, nausea, vomiting. No fevers or chills. Adult diet Regular; 5 carb choices (75 gm/meal) @[id number]@ 24HR INTAKE/OUTPUT: Intake/Output Summary (Last 24 hours) at 04/18/2024 1214 Last data filed at 04/18/2024 0500 Gross per 24 hour Intake 700 ml Output 3850 ml Net -3150 ml Past Medical History: Past Medical History: Diagnosis Date Abscess, perineum Chronic back pain Hip sprain Hyperlipidemia Hypertension Neuropathy Osteoarthritis Sciatica Type 2 diabetes mellitus without complication (CMS/HCC) ([facility]) LABS: CBC: Recent Labs 04/16/24 0515 04/17/24 0342 04/18/24 0712 WBC 11.9* 7.9 8.4 RBC 3.91* 3.83* 3.95* HGB 12.0* 11.5* 12.1* HCT 37.2* 35.4* 36.6* MCV 95.1 92.4 92.7 RDW 15.2* 14.9 15.0 PLT 76* 77* 79* BMP: Recent Labs 04/16/24 0504/17/2434104/18/24711 NA 137 135 140 K 4.3 3.2* 3.1* CL 105 107 105 CO2 25 23 27 BUN 30* 23* 15 CREATININE 0.70 0.58* 0.51* GLUCOSE 315* 144* 74 CALCIUM 8.2* 7.9* 7.8* ANIONGAP 6 5 7 LIVER PROFILE: Recent Labs 04/16/2451404/17/2434104/18/24 07 AST 37 22 18 ALT 26 [...] Emergency Contact: GAILSUMI Mobile Relation: Daughter Harmeet Ana Luisa Rodriguez MD Division of Hospitalist Medicine Inpatient Medical Services/[facility] PAGER: Epic chat Images from the original [...] -- Recent Labs 04/14/24 1603 04/14/24 1730 04/14/248 04/15/24 0407 04/16/24 0515 04/17/24 0342 WBC [...] #1 - Assess for effectiveness of treatment [[id number]] Blood, Venous Preliminary result Component Value Blood Culture Blood culture incubation started P 04/16/2024 0654 04/16/2024 1101 Blood culture Site #2 - Assess for effectiveness of treatment [[id number]] Blood, Venous Preliminary result Component Value Blood Culture Blood culture incubation started P 04/15/2024 1713 04/15/2024 2208 MRSA by PCR [[id number]] (Abnormal) ESwab from Nasal Final result Component Value Staphylococcus aureus Detected Abnormal mecA gene Not Detected 04/15/2024 0103 04/16/2024 1135 Urine culture [[id number]] (Abnormal) Urine, Clean Catch Preliminary result Component Value Urine Culture Normal urogenital gosia present P 50,000-90,000 CFU/mL Providencia stuartii Abnormal P 04/14/2024 1631 04/16/2024 1204 Blood culture Site #1 - Suspected Infection [[id number]] (Abnormal) Blood, Venous Preliminary result Component Value Blood Culture Proteus mirabilis Panic P Providencia stuartii Panic P Morganella morganii Panic P 04/14/2024 1631 04/16/2024 1204 Blood culture Site #2 - Suspected Infection [[id number]] (Abnormal) Blood, Venous Preliminary result Component Value Blood Culture Morganella morganii Panic P For identification and/or sensitivity, refer to culture collected on: 04/14/24 at 16:31, [id number]. This is an edited result. Previous organism was Gram-negative bacilli on 04/15/2024 at 0835 EDT. 04/14/2024 1631 04/15/2024 0828 Blood Culture Identification - Anaerobic [[id number]] (Abnormal) Blood, Venous Final result Component Value Proteus species Detected Abnormal Lines: PIV Radiography/Echo/Other: Procedure Component Value Units Date/Time FL pyelogram retrograde [[id number]] Resulted: 04/14/242216 Order Status: Completed Updated: 04/14/242216 Narrative: There is no interpretation needed for this exam. CT abdomen pelvis wo IV contrast [[id number]] Collected: 04/14/241928 Order Status: Completed Updated: 04/14/241938 [...] 7:37 PM EDT XR chest 1 view [[id number]] Collected: 04/14/241650 Order Status: Completed Updated: 04/14/241652 Narrative: Patient Name[facility]OLDS [facility] 1960 [facility] [id number] Exam Date/Time: 04/14/2024 16:39 Procedure: XR CHEST 1 VIEW Ordering Provider: [facility] Reason For Exam: sepsis INDICATION: Sepsis. [...] for open encounter. Hospitalist Progress Note 04/17/2024 [phone]: Please page pr ([phone]) for patient care issues. [phone]: Please page [facility] Hospitalist for any issues. Subjective: Admit Date: 04/14/2024 PCP: AMBROSIO MONROY DO Room#: 222-04/222-04 A Interval History: No overnight issues. Denies chest pain or sob. No abdominal pain, nausea, vomiting. No fevers or chills. Adult diet Regular; 5 carb choices (75 gm/meal) @[id number]@ 24HR INTAKE/OUTPUT: Intake/Output Summary (Last 24 hours) at 04/17/2024 0846 Last data filed at 04/17/2024 0621 Gross per 24 hour Intake 1876 ml Output 2535 ml Net -659 ml Past Medical History: Past Medical History: Diagnosis Date Abscess, perineum Chronic back pain Hip sprain Hyperlipidemia Hypertension Neuropathy Osteoarthritis Sciatica Type 2 diabetes mellitus without complication ([facility]/HCC) ([facility]) LABS: CBC: Recent Labs 04/15/24 0407 04/16/24 [...] MD Division of Hospitalist Medicine Inpatient Medical Services/[facility] PAGER: [phone] chat Images from the original note were [...] Objective: Vitals: BP MAP 132/83 (04/16/24522) 97 (04/16/24 05) Arterial BP MAP Temp 36.5 C (97.7 [...] place, and time. Labs: Recent Labs 04/14/24 16004/14/24231704/15/24 0407 04/16/24 0515 NA 137 -- 135 [...] Labs 04/14/24 1603 04/14/24 1730 04/14/24231704/15/24 0407 04/16/24 0515 WBC 1.5* -- 5.4 [...] #1 - Assess for effectiveness of treatment [[id number]] Blood, Venous Preliminary result Component Value Blood Culture Blood culture incubation started P 04/16/2024 0654 04/16/2024 1101 Blood culture Site #2 - Assess for effectiveness of treatment [[id number]] Blood, Venous Preliminary result Component Value Blood Culture Blood culture incubation started P 04/15/2024 1713 04/15/2024 2208 MRSA by PCR [[id number]] (Abnormal) ESwab from Nasal Final result Component Value Staphylococcus aureus Detected Abnormal mecA gene Not Detected 04/15/2024 0103 04/16/2024 1135 Urine culture [[id number]] (Abnormal) Urine, Clean Catch Preliminary result Component Value Urine Culture Normal urogenital gosia present P 50,000-90,000 CFU/mL Providencia stuartii Abnormal P 04/14/2024 1631 04/16/2024 1204 Blood culture Site #1 - Suspected Infection [[id number]] (Abnormal) Blood, Venous Preliminary result Component Value Blood Culture Proteus mirabilis Panic P Providencia stuartii Panic P Morganella morganii Panic P 04/14/2024 1631 04/16/2024 1204 Blood culture Site #2 - Suspected Infection [[id number]] (Abnormal) Blood, Venous Preliminary result Component Value Blood Culture Morganella morganii Panic P For identification and/or sensitivity, refer to culture collected on: 04/14/24 at 16:31, [id number]. This is an edited result. Previous organism was Gram-negative bacilli on 04/15/2024 at 0835 EDT. 04/14/2024 1631 04/15/2024 0828 Blood Culture Identification - Anaerobic [[id number]] (Abnormal) Blood, Venous Final result Component Value Proteus species Detected Abnormal Lines: PIV Radiography/Echo/Other: Procedure Component Value Units Date/Time FL pyelogram retrograde [[id number]] Resulted: 04/14/242216 Order Status: Completed Updated: 04/14/242216 Narrative: There is no interpretation needed for this exam. CT abdomen pelvis wo IV contrast [[id number]] Collected: 04/14/241928 Order Status: Completed Updated: 04/14/241938 Narrative: Patient Name: ANMOL REYNOLDS : 1960 Exam Date/Time: 04/14/2024 19:28 Procedure: CT ABDOMEN PELVIS WO IV CONTRAST Ordering Provider: [facility] Reason For Exam: Sepsis CT ABDOMEN AND [...] 7:37 PM EDT XR chest 1 view [[id number]] Collected: 04/14/241650 Order Status: Completed Updated: 04/14/241652 Narrative: Patient Name: ANMOL REYNOLDS : 1960 [place] [id number] Exam Date/Time: 04/14/2024 16:39 Procedure: XR CHEST 1 VIEW Ordering Provider: [facility], [facility] Reason For Exam: sepsis INDICATION: Sepsis. VIEWS: [...] original note were not included. OCCUPATIONAL THERAPY [facility] Name/MRN: Anmol Reynolds ([id number]) Date: 04/16/2024 OT evaluation and treat orders received. PT spoke to patient at bedside. Pt is from [facility] and is paraplegic with everett lift to electric w/c. Pt also requires assist with ADLs. Pt states receives very minimal therapy services at [facility]. Pt has no current acute OT needs and is at baseline LOF. Rec return to [facility]. Chelita Blanc OT ICU Progress Note Name: Anmol Reynolds : 1960(63 y.o.) Date: 04/16/24 Team: MICU Chief Complaint: obstructed santana catheter, septic shock Subjective: Hospital Summary: 63 yoM with history of paraplegia after lumbar surgeries, [facility] resident, history of recurrent UTIs in [...] Normal [] Scar/Lesion/Mass Inspection of teeth/lips/gums Dentition: [x][place] Teeth []Dentures Lips/Gums: [x]Intact []Lesion Present Mucosa: [][place] []Moist [x]Dry Neck: External Appearance Overall Appearance: [...] Labs 04/14/242317 PROCAL 27.06* CBC: Recent Labs 04/14/248 04/15/24 0407 04/16/24 0515 WBC 5.4 11.2* 11.9* HGB 12.4* 11.9* 12.0* HCT 39.1* 36.2* 37.2* PLT 117* 107* 76* MCV 97.0 94.0 95.1 RDW 14.8 14.9 15.2* ABGs: Recent Labs 04/14/24 1730 [id number] Room Air Lactic Acid: Recent Labs 04/14/248 04/15/24 0407 04/15/24 0844 LACTATE 4.9* 3.6* 2.0 [...] assess Fluid Accumulation: Mild Extremities (+2 ble) Dragger Out Strength: Not Performed Nutrition Assessment: per MD-pISTORY OF PRESENT ILLNESS: Anmol is a 63 y.o. male with , recurrent UTI at [facility] who presented to the ED today [...] WBC 1.5, er case manger-npatient status from [facility] with sepsis. Urology consulted due to bilateral [...] of paraplegia and states has been at [facility] for a year and wishes to return [...] On: Kcal/kg Weight Used for Energy Requirements: [place] Weight for Energy Calculation (kg): 82.41 kg Total Energy Requirements (kcals/day): 28-30 or 7- 24 72 Weight Used for Protein Requirements: [place] Weight in Kg Used for Protein Requirements: [...] (183 lb) % Weight Change (Calculated): 12.2 [place] Body Weight (lbs) (Calculated): 196 lbs [place] Body Weight (Kg) (Calculated): 89 kg % [place] Body Weight (Calculated): 104.7 % BMI (kg/m2) (Calculated): 25.7 Weight Adjustment For: Paraplegia % Weight Adjustment: 7.5 - Paraplegia Total Adjusted Percentage (Calculated): 7.5 Adjusted [place] Body Weight (lbs) (Calculated): 181.3 lbs Adjusted [place] Body Weight (kg) (Calculated): 82.41 kg Adjusted [...] Oral Nutrition Supplement Isabel Lieberman RD Contact: *[phone] or secure chat ICU Progress Note Name: [...] BP MAP 108/67 (04/15/24 0816) 80 (04/15/24 08) Arterial BP MAP Temp 37.1 C (98.8 [...] Normal [] Scar/Lesion/Mass Inspection of teeth/lips/gums Dentition: [x][place] Teeth []Dentures Lips/Gums: [x]Intact []Lesion Present Mucosa: [][place] []Moist [x]Dry Neck: External Appearance Overall Appearance: [...] Glucose: Recent Labs 04/14/24 16004/14/24 22104/14/24 22204/14/24 2332 04/15/24 0407 04/15/24 0608 GLUCOSE 259* [...] -- 14.8 14.9 ABGs: Recent Labs 04/14/241729 [id number] Room Air Lactic Acid: Recent Labs 04/14/24 1859 04/14/24231704/15/24406 LACTATE 3.9* 4.9* 3.6* INR: Recent Labs [...] [facility] Name/MRN: Anmol Reynolds ([id number]) Date: 04/15/2024 PT evaluation and treat orders received. Spoke to patient at bedside. Pt is from [facility] and is paraplegic with everett lift to electric w/c. Pt states receives very minimal therapy services at [facility]. Pt has no current acute PT needs and is at baseline LOF. Rec return to [facility]. Nakita Kwan PT Images from the [...] in patient's urologic status. Joe Hammer, ZACARIAS, RN DIABETES, [facility] [place] Urology Subjective: Interval History: [...] Sciatica Type 2 diabetes mellitus without complication ([facility]) ([facility]) Objective: Vitals: BP 108/67 Pulse 92 [...] mg, 400 mg, IntraVENous, q24h, Brad Mujica, RN DIABETES - PROPOSAL ENGINEER, Stopped at 04/15/24 0254 glucagon (human recombinant) [...] in 0.9% sodium chloride 250 mL infusion (Yiy-Kymfia-Htgon) (premix), 2-50 mcg/min, IntraVENous, Continuous, Pedro Luis [...] portions of this chart were dictated using Joyus voice recognition software. It is possible that typos and/or omissions and/or substitutions of words and/or phrases may exist, which may alter the intended meaning of the dictating provider. On this date 04/15/2024 I have spent 35 minutes draj-kh-vjwq time, reviewing previous notes, test results and [...] creatinine, and vancomycin levels interfaced automatically to 55social and data has been analyzed and interpreted. [...] Ongoing ICU care/mgmt documented in this encounter [facility] 04-17-2024 Consult note Associated Order (s): PHARMACY TO DOSE VANCO Vancomycin therapy has been discontinued by Dr. Moyer on 04-17. Thank you for the consult. Pharmacy signing off for vancomycin dosing. Carmel Collins cathy, Date: 04/17/24 Time: 1:40 PM Associated Order(s): [...] Sciatica Type 2 diabetes mellitus without complication ([facility]/HCC) ([facility]) Past Surgical History: Past Surgical History: Procedure Laterality Date ANKLE SURGERY Right He has a titanium plate to the right ankle KNEE SURGERY ACL LAMINECTOMY Left 10/24/2020 LEFT BILATERAL L2-3-4-5 DECOMPRESSION performed by Opal Vigil MD at [facility] [place] ORTHOPEDIC SURGERY US PLACE URETAL STENT [...] mg IntraVENous q24h Brad Mujica APRN - PROPOSAL ENGINEER Stopped at 04/15/24 0254 glucagon (human recombinant) [...] Units SubCUTAneous q6h Brad Mujica APRN - PROPOSAL ENGINEER 3 Units at 04/15/24 1334 Insulin Lispro [...] in 0.9% sodium chloride 250 mL infusion (Yne-Cyckqr-Hglea) (premix) 2-50 mcg/min IntraVENous Continuous Pedro Luis [...] Resource Strain: Low Risk (04/24/2023) Received from [facility], [facility] Overall Financial Resource Strain (CARDIA) Difficulty [...] 75 16 99 % -- -- 04/15/24 120 -- -- -- 73 13 97 % -- -- 04/15/241201 132/83 -- -- 70 12 98 % -- -- 04/15/24 1200 -- -- -- 73 14 98 % -- -- 04/15/24 115 -- -- -- 73 13 98 % -- -- 04/15/24 115 -- -- -- 70 12 99 % -- -- 04/15/241156 -- -- -- 77 12 97 % -- -- 04/15/24 115 -- -- -- 73 (!) 11 97 % -- -- 04/15/24 115 -- [...] (!) 11 98 % -- -- 04/15/24 114 -- -- -- 74 15 98 % [...] 70 (!) 11 97 % -- -- 04/15/248 -- -- -- 71 (!) 10 98 [...] 77 18 98 % -- -- 04/15/24 112 -- -- -- 73 (!) 10 96 [...] -- 80 12 95 % -- -- 07/12/24 0954 -- -- -- 78 12 96 [...] -- 87 15 94 % -- -- 07929 -- -- -- 82 15 95 % [...] -- 98 15 96 % -- -- 04/15/24831 -- -- -- 101 16 97 % [...] 87 12 95 % -- -- 04/15/24 0759 -- -- -- 88 12 95 % [...] 83 13 94 % -- -- 04/15/24710 104/68 -- -- 86 13 95 % -- -- 04/15/24709 -- -- -- 86 13 95 % -- -- 04/15/24708 -- -- -- 87 13 95 % -- -- 04/15/24707 -- -- -- 86 13 95 % -- -- 04/15/24706 -- -- -- 86 13 95 % -- -- 04/15/24 0706 -- -- -- 86 13 94 % -- -- 04/15/24 0705 -- -- -- 87 12 93 % -- -- 04/15/24703 -- -- -- 88 13 93 % -- -- 04/15/24 0703 -- -- -- 89 12 93 % -- -- 04/15/24 0702 -- -- -- 88 13 92 % [...] hours. 04/15/2024 0103 04/15/2024 0107 Urine culture [[id number]] Urine, Clean Catch In process Component Value No component results 04/14/2024 1631 04/15/2024 0835 Blood culture Site #1 - Suspected Infection [[id number]] (Abnormal) Blood, Venous Preliminary result Component Value Blood Culture Gram-negative bacilli Panic P 04/14/2024 1631 04/15/2024 0835 Blood culture Site #2 - Suspected Infection [[id number]] (Abnormal) Blood, Venous Preliminary result Component Value Blood Culture Gram-negative bacilli Panic P 04/14/2024 1631 04/15/2024 0828 Blood Culture Identification - Anaerobic [[id number]] (Abnormal) Blood, Venous Final result Component Value Proteus species Detected Abnormal Lines: PIV Radiography/Echo/Other: CT abdomen pelvis wo IV contrast [[id number]] Collected: 04/14/241928 Order Status: Completed Updated: 04/14/241938 Narrative: Patient Name: ANMOL REYNOLDS : 1960 Exam Date/Time: 04/14/2024 19:28 Procedure: CT ABDOMEN PELVIS WO IV CONTRAST Ordering Provider: EMS [facility] Reason For Exam: Sepsis CT ABDOMEN AND [...] 7:37 PM EDT XR chest 1 view [[id number]] Collected: 04/14/241650 Order Status: Completed Updated: 04/14/241652 [...] open encounter. 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 The clinical bedside RN should provide any necessary diabetes education using the Diabetes Survival Skills Booklet available on the unit. Please consider a dietary consult if appropriate and if not already ordered. Contact [facility] to [facility] pharmacist for assistance if a new glucometer or any associated supplies are needed. Thank you. Karlos PAVON,BSN,[facility] Images from the original note were [...] Calculated CrCl: 80.6 mL/min Consulted By: Dr. Morehart Infectious Diagnosis: UTI (AUC Goal 400-600 mg/L*hr) [...] creatinine, and vancomycin levels interfaced automatically to 55social and data has been analyzed and interpreted. [...] er due to clogged santana. Data Afebrile [id number]/55-76 Pulse-120 Creat-1.24 Co2-19 Lactic 5.1>>3.9 Wbc 1.5 [...] DECOMPRESSION performed by Opal Vigil MD at [facility] OR ORTHOPEDIC SURGERY ALLERGIES: No Known Allergies [...] Resource Strain: Low Risk (04/24/2023) Received from [facility] Overall Financial Resource Strain (CARDIA) Difficulty of Paying Living Expenses: Not hard at all Food Insecurity: No Food Insecurity (04/24/2023) Received from [facility] Hunger Vital Sign Worried About Running Out of Food in the Last Year: Never true Ran Out of Food in the Last Year: Never true Transportation Needs: No Transportation Needs (04/24/2023) Received from [facility] PRAPARE - Transportation Lack of Transportation (Medical): No Lack of Transportation (Non-Medical): No Physical Activity: Not on file Stress: Not on file Social Connections: Not on file Intimate Partner Violence: Not on file Housing Stability: High Risk (04/24/2023) Received from [facility] Housing Stability Vital Sign Unable to Pay for Housing in the Last Year: No Number of Places Lived in the Last Year: 4 In the last 12 months, was there a time when you did not have a steady place to sleep or slept in a fpc (including now)?: No Review of Systems Constitutional: [...] paraplegic patient, history of recurrent UTI at [facility] who presented to the ED today [...] without complication (CMS/HCC) (HCC) Past Surgical History: Procedure Laterality Date ANKLE SURGERY Right He has a titanium plate to the right ankle KNEE SURGERY ACL LAMINECTOMY Left 10/24/2020 LEFT BILATERAL L2-3-4-5 DECOMPRESSION performed by Opal Vigil MD at [facility] OR ORTHOPEDIC SURGERY No family history on [...] Resource Strain: Low Risk (04/24/2023) Received from [facility], [facility] Overall Financial Resource Strain (CARDIA) Difficulty of Paying Living Expenses: Not hard at all Food Insecurity: No Food Insecurity (04/24/2023) Received from [facility], [facility] Hunger Vital Sign Worried About Running Out of Food in the Last Year: Never true Ran Out of Food in the Last Year: Never true Transportation Needs: No Transportation Needs (04/24/2023) Received from [facility], [facility] PRAPARE - Transportation Lack of Transportation (Medical): No Lack of Transportation (Non-Medical): No Physical Activity: Not on file Stress: Not on file Social Connections: Not on file Intimate Partner Violence: Not on file Housing Stability: High Risk (04/24/2023) Received from [facility], [facility] Housing Stability Vital Sign Unable to Pay for Housing in the Last Year: No Number of Places Lived in the Last Year: 4 In the last 12 months, was there a time when you did not have a steady place to sleep or slept in a fpc (including now)?: No No Known Allergies Prior [...] Normal [] Scar/Lesion/Mass Inspection of teeth/lips/gums Dentition: [][place] Teeth []Dentures Lips/Gums: []Intact []Lesion Present Mucosa: [][place] [x]Moist []Dry Neck: External Appearance Overall Appearance: [...] 14.8 -- ABGs: Recent Labs 04/14/24 1730 [id number] Room Air Lactic Acid: Recent Labs 04/14/24 [...] Consider meropenem. \ documented in this encounter [facility] 04-15-2024 Telephone encounter Note SURGERY SCHEDULING Surgeon: Dr. Dashawn Grimm PROCEDURE: Cystoscopy, possible cystolitholapaxy, bilateral ureteroscopy, bilateral laser lithotripsy, bilateral ureteral stent change - Special request: Astrid ruano DIAGNOSIS: Bladder calculus, bilateral ureteral stones [facility] or [facility] DETAILS: OUTPT ANESTHESIA: GENERAL TIME REQUESTED: 2hr DATE REQUESTED: Must be minimum of 2 weeks from today due to infection SURGERY ORDERS: Already placed by Joe Hammer NP on 04/15/2024 POST OP FOLLOW UP: cysto stent removal 2 wks [facility] 04-15-2024 History and physical note Images from the original note were not included. Attending History and Physical Admit Date: 04/14/2024 PCP: AMBROSIO MONROY DO CHIEF COMPLAINT: UTI Reason for Admission: Seps History Obtained From: patient HISTORY OF PRESENT ILLNESS: Anmol is a 63 y.o. male with , recurrent UTI at [facility] who presented to the ED today [...] called and patient to go to OR [facility]. Will admit for further evaluation and [...] DECOMPRESSION performed by Opal Vigil MD at [facility] OR ORTHOPEDIC SURGERY PLACE URETAL STENT PERC [...] Resource Strain: Low Risk (04/24/2023) Received from [facility] Overall Financial Resource Strain (CARDIA) Difficulty of Paying Living Expenses: Not hard at all Food Insecurity: No Food Insecurity (04/24/2023) Received from [facility] Hunger Vital Sign Worried About Running Out of Food in the Last Year: Never true Ran Out of Food in the Last Year: Never true Transportation Needs: No Transportation Needs (04/24/2023) Received from [facility] PRAPARE - Transportation Lack of Transportation (Medical): No Lack of Transportation (Non-Medical): No Physical Activity: Not on file Stress: Not on file Social Connections: Not on file Intimate Partner Violence: Not on file Housing Stability: High Risk (04/24/2023) Received from [facility] Housing Stability Vital Sign Unable to Pay for Housing in the Last Year: No Number of Places Lived in the Last Year: 4 In the last 12 months, was there a time when you did not have a steady place to sleep or slept in a fpc (including now)?: No Family History: No family [...] Reynolds Relation: Spouse [employer] Anmol Franco Gail : 1960 Primary Care Physician: AMBROSIO MONROY DO The patient and/or family/surrogate voluntarily agreed to participate in ACP services. Patient s cognitive capacity: intact Code Status: [X] [FULL CODE - Continue all advanced life support: CPR,intubation,invasive procedures] [_] [DNR-CCA - DO NOT do CPR, intubation] [_] [DNR-HAND SINGER - Comfort care only] [_] DNR form [was/was not] signed Summary of discussion: The patient health care POA/ surrogate is the following: Leyla Reynolds . [Condition that instigated the ACP on [...] and/or family/surrogate. Orquidea Marti MD [facility] documented in this encounter [facility] 04-14-2024 Emergency department Note Both sets of blood cultures obtained from each PIV when started. Samples labeled and at bedside in case BC ordered Leyla Mendoza RN 04/14/24 1643 Patient arrives via EMS from [facility] with c/o Santana catheter not draining, [...] DECOMPRESSION performed by Opal Vigil MD at [facility] OR ORTHOPEDIC SURGERY CURRENT MEDICATIONS Previous Medications [...] Resource Strain: Low Risk (04/24/2023) Received from [facility] Overall Financial Resource Strain (CARDIA) Difficulty of Paying Living Expenses: Not hard at all Food Insecurity: No Food Insecurity (04/24/2023) Received from [facility] Hunger Vital Sign Worried About Running Out of Food in the Last Year: Never true Ran Out of Food in the Last Year: Never true Transportation Needs: No Transportation Needs (04/24/2023) Received from [facility] PRAPARE - Transportation Lack of Transportation (Medical): No Lack of Transportation (Non-Medical): No Housing Stability: High Risk (04/24/2023) Received from [facility] Housing Stability Vital Sign Unable to Pay for Housing in the Last Year: No Number of Places Lived in the Last Year: 4 In the last 12 months, was there a time when you did not have a steady place to sleep or slept in a fpc (including now)?: No SCREENINGS PHYSICAL EXAM ED Triage Vitals [04/14/24 1555] Temp Heart Rate Resp BP 37.6 C (99.6 F) (!) 121 20 -- SpO2 Temp Source Heart Rate Source Patient Position 99 % Oral Monitor Lying BP Location FiO2 (%) Left arm -- Tyckixo-zhic-gfbndvywc, slightly toxic-appearing HEENT- atraumatic, normocephalic Neck- no [...] Culture. Procedure Abnormality Status --------- ------ Complete Urinalysis[[id number]] Please view results for these tests on [...] 1611. Rate 119 sinus tachycardia. Normal axis. NM interval 154, QRS 90, QTc 473. No [...] Dickens MD 04/14/242003 documented in this encounter [facility] 04-13-2024 Telephone encounter Note Called pt on his room number but unable to reach him or leave a message. I called nursing staff at [facility] lives and was able to leave a message with nursing regarding his MRI findings and that I would like to speak with him and recommendations to schedule visit with SCI rehab and spine surgery. Vaishali Pierre DO [facility] 04-06-2024 Telephone encounter Note Telephoned CT pt at dinner and administrative receptionist states she cannot pull pt away from dinner. [facility] 04-06-2024 Telephone encounter Note Called pt regarding his MRI, which showed: IMPRESSION: Acute-subacute sacral insufficiency fracture at S2. Postoperative and degenerative changes of the lumbar spine with linear granulation tissue at L2-3 and tethering of the cauda equina suggesting sequelae of chronic arachnoiditis. No evidence of osteomyelitis discitis or epidural abscess. He [facility] the [facility], but I was able [...] to the above findings.He does not have [facility] set up to message. Vaishali Pierre DO [facility] 02-10-2024 Instructions Vaishali Pierre DO - 02/10/2024 1:53 PM EDT - xrays of the low back - can schedule the MRI of the lumbar spine - I recommend seeing one of my colleagues in the spinal cord injury clinic documented in this encounter [facility] 02-10-2024 History of Present illness Narrative [...] currently in a nursing facility[facility]. Bladder management is via Santana [...] in the spinal cord injury clinic for intermediate SCI related management. Vaishali Pierre DO Physical Medicine and Rehabilitation Vitals not obtained per provider's instructions. documented in this encounter [facility] 04-26-2024 History of Present illness Narrative Images from the original note were not included. [facility] PAIN MANAGEMENT [address] [place] [address] Dept: [phone] Dept Chief Complaint Patient presents with Pain [...] Sciatica Type 2 diabetes mellitus without complication ([facility]/HCC) ([facility]) Social History Socioeconomic History Marital status: [...] DECOMPRESSION performed by Opal Vigil MD at [facility] [place] [facility]IC SURGERY Current Outpatient Medications Medication [...] follow-ups on file. documented in this encounter [facility] 12-29-2023 History of Present illness Narrative Images from the original note were not included. [facility] [address] [place] [address] Dept: [phone] Dept Chief Complaint Patient presents with New [...] Resource Strain: Low Risk (04/24/2023) [facility] Overall Financial Resource Strain (CARDIA) Difficulty [...] DECOMPRESSION performed by Opal Vigil MD at [facility] [place] [facility]TH[facility]IC SURGERY Right removal of hardware [...] follow-ups on file. documented in this encounter [facility] 09-08-2023 Telephone encounter Note Called and left message for doug to call to schedule patient a new patient appointment [facility] 09-08-2023 Miscellaneous Notes Called and left message for doug to call to schedule patient a new patient appointment Name of caller: Doug Contact phone number: [phone] Relationship to Patient: [facility] Provider: Practice: Pain Management Chief Complaint/Reason for Call: Doug states she mailed the referral over to the office and would like to know if the office received it. Please advise Best time of day caller can be reached: Any Patient advised that office/PCP has 24-48 business hours to return their call: Yes documented in this encounter [facility] 09-04-2023 Telephone encounter Note Name of caller: Doug Contact phone number: [phone] Relationship to Patient: [facility] Provider: Practice: Pain Management Chief Complaint/Reason for Call: Doug states she mailed the referral over to the office and would like to know if the office received it. Please advise Best time of day caller can be reached: Any Patient advised that office/PCP has 24-48 business hours to return their call: Yes [facility] 08-19-2023 Telephone encounter Note Returned call gave fax number gave address to mail referral [facility] 08-19-2023 Miscellaneous Notes Returned call gave fax number gave address to mail referral Name of caller: Doug Contact phone number: [phone] Relationship to Patient: [facility] Provider: Dr. Gillette Practice: Pain Management Chief [...] Name of caller: Doug Contact phone number: [phone] Relationship to Patient: [facility] Provider: Dr. Gillette Practice: Pain Management Chief Complaint/Reason for Call: Doug states she would like a call back to confirm receipt of the patient's referral for LUMBER BEARER appt scheduling (fax number confirmed). Please contact Doug and advise. Best time of day caller can be reached: Any Patient advised that office/PCP has 24-48 business hours to return their call: No documented in this encounter [facility] 08-19-2023 Telephone encounter Note Name of caller: [facility] Contact phone number: [phone] Relationship to Patient: The [facility] Provider: Dr. Gillette Practice: Pain Management Chief Complaint/Reason for Call: Pt claims that fax of referral will not go threw and was hoping someone could give her a call back to go over the referral please advise Best time of day caller can be reached: Any Patient advised that office/PCP has 24-48 business hours to return their call: No [facility] [employer] 08-19-2023 Telephone encounter Note Name of caller: [facility] Contact phone number: [phone] Relationship to Patient: The [facility] Provider: Dr. Gillette Practice: Pain Management Chief Complaint/Reason for Call: [facility] states she would like a call back to confirm receipt of the patient's referral for LUMBER BEARER appt scheduling (fax number confirmed). Please contact Doug and advise. Best time of day caller can be reached: Any Patient advised that office/PCP has 24-48 business hours to return their call: No [facility] [employer] 08-13-2023 Telephone encounter Note Called and gave fax number to send referral [facility] [employer] 08-13-2023 Miscellaneous Notes Called and gave fax number to send referral Pt is asking for a call back to be scheduled Left message for patient to call the office Returned call will call thursday Name of Caller: Doug - [facility] Contact Reason for Appointment: Doug states that they faxed over a referral for patient a few days ago and is calling to schedule a LUMBER BEARER appointment. Please advise. Office Name: [facility] Pain Medication Refills need, if any: none Medication Name: n/a ` documented in this encounter [facility] 08-13-2023 Telephone encounter Note Pt is asking for a call back to be scheduled [facility] 08-12-2023 Telephone encounter Note Left message for patient to call the office [facility] 08-07-2023 Telephone encounter Note Returned call will call thursday [facility] 08-06-2023 Telephone encounter Note Name of Caller: Doug - [facility] Contact Reason for Appointment: Doug states that they faxed over a referral for patient a few days ago and is calling to schedule a LUMBER BEARER appointment. Please advise. Office Name: [facility] Pain Medication Refills need, if any: none Medication Name: n/a ` [facility] 05-23-2023 Emergency department Note Physicians [facility] arrived and report given. Patient loaded and sent back to SNF. Vladimir Dimas RN 05/23/23 1207 [facility] 05-23-2023 Emergency department Note Physicians [facility] [...] the entirety of this encounter. HPI Anmol D Given is a 62 y.o. male who presents [...] Sciatica Type 2 diabetes mellitus without complication ([facility]) SURGICAL HISTORY Past Surgical History: Procedure Laterality Date ANKLE SURGERY Right He has a titanium plate to the right ankle KNEE SURGERY ACL LAMINECTOMY Left 10/24/2020 LEFT BILATERAL L2-3-4-5 DECOMPRESSION performed by Opal Vigil MD at [facility] [place] [facility]TH[facility]EDIC SURGERY CURRENT MEDICATIONS Previous Medications [...] Culture. Procedure Abnormality Status --------- ------ Complete Urinalysis[[id number]] Abnormal Final result Please view results for [...] . I Colt Klein DO am the internist medical doctor md of record. PROCEDURES: Unless otherwise noted below, none Procedures FINAL IMPRESSION 1. Urinary tract infection associated with indwelling urethral catheter, initial encounter ([facility]) DISPOSITION Discharge 05/23/2023 09:53:37 AM PATIENT REFERRED TO: Ambrosio Monroy DO [address] [facility] [address] [facility] [address] [facility] [address] DISCHARGE MEDICATIONS: New Prescriptions CEPHALEXIN (KEFLEX) 500 [...] santana without success. documented in this encounter [facility] 05-23-2023 Emergency department Note Inserted a santana and drained initially 100ml of blood and puss. Bladder scan showed 500+ ml of fluid in bladder. Obtained OK from ED Attending to manually flush and drain the catheter. After using 30 ml of NS to flush patient the urine began to flow into the santana bag. Urine sample sent. Vladimir Dimas RN 05/23/23 1013 [facility] 05-23-2023 Emergency department Note Bed: 18 Expected date: Expected time: Means of arrival: Comments: Adelia Banuelos 05/23/23 0746 [facility] 05-23-2023 Emergency department Triage note Patient with chronic santana due to history of paraplegia that became clogged with blood clots. Patient had lithotripsy due to stone recently. SNF attempted several times to reinsert santana without success. [facility] 05-23-2023 Physician Emergency department Note EMERGENCY [...] Sciatica Type 2 diabetes mellitus without complication ([facility]) SURGICAL HISTORY Past Surgical History: Procedure Laterality Date ANKLE SURGERY Right He has a titanium plate to the right ankle KNEE SURGERY ACL LAMINECTOMY Left 10/24/2020 LEFT BILATERAL L2-3-4-5 DECOMPRESSION performed by Opal Vigil MD at [facility] [place] [facility]THOPEDIC SURGERY CURRENT MEDICATIONS Previous Medications [...] Culture. Procedure Abnormality Status --------- ------ Complete Urinalysis[[id number]] Abnormal Final result Please view results for [...] . I Colt Klein DO am the internist medical doctor md of record. PROCEDURES: Unless otherwise noted below, none Procedures FINAL IMPRESSION 1. Urinary tract infection associated with indwelling urethral catheter, initial encounter ([facility]) DISPOSITION Discharge 05/23/2023 09:53:37 AM PATIENT REFERRED TO: Ambrosio Monroy DO [address] [facility] [address] [facility] ED [address] [facility] [address] DISCHARGE MEDICATIONS: New Prescriptions CEPHALEXIN [...] Medicine Provider Colt Klein DO 05/23/23 1010 [facility] 04-21-2022 Note HNO ID: [id number] Author: Cindi Cuellar PA-C Service: ? Author Type: Physician Abstractor Type: Progress Notes Filed: 04/21/2022 12:25 PM Note Text: Actionable Finding: Reviewed patient's chart. The actionable finding of MRI lumbar , dated 02/14/22 was followed up by unknown and unsure if the patient was contacted regarding the MRI results. Unable to reach patient. Staff msg sent to Dr Kelly - patient spine surgeon. Cindi Cuellar PA-C [facility] 07-18-2022 Note Patient Outreach (SP NSMN) GIVEN,ANMOL ([id number]) 1960 M Date Time Provider Department 04/21/22 [...] Of Date 04/21/2022 Noted Resolved NO SHOW [[id number]] 08/31/2013 05/29/2020 Perineal abscess [L02.215] 06/13/2019 05/29/2020 [...] Encounter Status:Closed by CINDI CUELLAR on 04/21/22 [facility] 04-21-2022 Note Patient Outreach (SP NSMN) ANMOL REYNOLDS ([id number]) 1960 M Date Time Provider Department 04/21/22 CINDI CUELLARNSMN During your visit today, we recorded the [...] Of Date 04/21/2022 Noted Resolved NO SHOW [[id number]] 08/31/2013 05/29/2020 Perineal abscess [L02.215] 06/13/2019 05/29/2020 [...] Encounter Status:Closed by CINDI CUELLAR on 04/21/22 [facility] 04-21-2022 History of Present illness Narrative Actionable Finding: Reviewed patient's chart. The actionable finding of MRI lumbar , dated 02/14/22 was followed up by unknown and unsure if the patient was contacted regarding the MRI results. Unable to reach patient. Staff msg sent to Dr Kelly - patient spine surgeon. Cindi Cuellar PA-C documented in this encounter [facility] 02-14-2022 History of Present illness Narrative [...] PERIPHERAL IV DATA: Ambulatory: Pic[facility] line from [facility] RADIOLOGY DEPARTMENT: MR; Exam(s) Completed: Head: Routine Brain Spine: WHOLE spine SIGNATURE: RT Kasandra(Ector) PATIENT NAME: Anmol Reynolds DATE: February 14, 2022 TIME: 12:27 PM documented in this encounter [facility] 08-05-2021 Note HNO ID: [id number] Author: Penny Cameron MD Service: ? Author [...] CT chest abd/pelvis (more content not included)... [facility] 01-16-2021 History of Past i llness Narrative Problem Noted Date Resolved Date Perirectal abscess 01/16/2021 08/21/2021 Perineal abscess 06/13/2019 05/29/2020 NO SHOW 08/31/2013 05/29/2020 documented as of this encounter (statuses as of 02/15/2022) [facility] History of Past illness Narrative* Problem Noted Date Resolved Date Perirectal abscess 01/16/2021 08/21/2021 Perineal abscess 06/13/2019 05/29/2020 NO SHOW 08/31/2013 05/29/2020 documented as of this encounter (statuses as of 04/21/2022) [facility] assessment information availableW[facility] Work Phone: Evaluation note* Diagnosis Urinary tract infection associated with indwelling urethral catheter, initial encounter (HCC)- Primary [facility] Diagnosis Injury of lumbar spinal cord, sequela (HCC)- Primary Neuropathic pain [facility]* Diagnosis Paraplegia (HCC)- Primary Paraplegia History of lumbar fusion Paraplegia (HCC) Paraplegia [facility] of [facility]aplegia (HCC) Paraplegia History of lumbar fusion [facility]* Diagnosis Bilateral ureteral calculi- Primary Bladder calculus Other calculus in bladder [facility] Diagnosis Septic shock (HCC)- Primary Septic shock (HCC) Urinary obstruction Decubitus ulcer of sacral region, stage 2 (HCC) Injury of lumbar spinal cord, sequela (HCC) Neuropathic pain Pressure injury of coccygeal region, stage 3 (HCC) Bacteremia Pressure injury of coccygeal region, stage 3 (HCC) Calculus of ureter documented in this encounter [facility]* Diagnosis Paraplegia (HCC)- Primary Paraplegia History of lumbar fusion Sacral insufficiency fracture, initial encounter [facility]* Diagnosis Bladder calculus- Primary Other calculus in bladder Bladder calculus Other calculus in bladder Bilateral ureteral calculi Calculus of ureter [facility] Diagnosis Sacral insufficiency fracture, initial encounter [...] Pressure injury of coccygeal region, stage 3 ([facility]) [facility]* Diagnosis Spinal cord injury, lumbar, without spinal bone injury, sequela (HCC)- Primary Neuropathic pain [facility]* Diagnosis Paraplegia (HCC)- Primary Paraplegia Reflex [...] unspecified stage- Primary [facility]* Diagnosis Chronic osteomyelitis (HCC)- Primary Chronic [...] [facility] Diagnosis Paraplegia (HCC)- Primary Paraplegia Neurogenic bladder Neurogenic bladder, NOS Gross hematuria Neuropathic pain Neuralgia, neuritis, and radiculitis, unspecified Pressure injury of skin, unspecified injury stage, unspecified location [facility]* Diagnosis Ureteral stent present- Primary Kidney stone Calculus of kidney Hydronephrosis, unspecified hydronephrosis type documented in this encounter [facility] note* Diagnosis Chronic osteomyelitis (HCC)- Primary Chronic osteomyelitis, site unspecified Severe protein-calorie malnutrition (HCC) Other severe protein-calorie malnutrition Ureteral calculi Calculus of ureter Complicated UTI (urinary tract infection) Urinary tract infection, site not specified Neurogenic bladder Neurogenic bladder, NOS Type 2 diabetes mellitus with hyperglycemia, with long-term current use of insulin (HCC) [facility]* Diagnosis Other acute osteomyelitis, other site (HCC)- Primary Other acute osteomyelitis, other site (HCC) Pressure injury of coccygeal region, stage 3 (HCC) Lumbar stenosis with neurogenic claudication Osteoarthritis, unspecified osteoarthritis type, unspecified site Other intervertebral disc displacement, lumbar region Pressure injury of coccygeal region, stage 3 (HCC) documented in this encounter [facility] Discharge instructions* Attachments The following attachments cannot be sent through Care Everywhere. * Urinary Tract Infections in Adults ([place]) [facility] Consultation (Routine) - Pending Review Specialty Diagnoses / Procedures Referred By Contac t Referred To Contact Urology Diagnoses Urinary obstruction Procedures NM OFFICE/OUTPATIENT NEW HIGH MDM 60 MINUTES Otis Mckenzie DO [address] [place] [address] Dashawn Grimm MD [address] [address] Referral ID Status Reason Start Date Expiration Date Visits Requested Visits Authorized [id number] Pending Review Specialty Services Required 04/20/2024 04/20/2025 1 1 * Consultation (Routine) - Pending Review Specialty Diagnoses / Procedures Referred By Contac t Referred To Contact Wound Care Diagnoses Decubitus ulcer of sacral region, stage 2 (HCC) Procedures NM OFFICE/OUTPATIENT NEW HIGH MDM 60 MINUTES Sumi Everett, RN DIABETES - PROPOSAL ENGINEER [address] [place] [address] Sbh Op Wnd Ostomy [facility] [address] [place] [address] Referral ID Status Reason Start Date Expiration Date Visits Requested Visits Authorized [id number] Pending Review Specialty Services Required 04/15/2024 04/15/2025 1 1 [facility] for referral (narrative)No reason for referral information availableWBlanchard [facility] Work Phone: Reason for visit Narrative* Service Level Authorization (Routine) - Closed Specialty Diagnoses / Procedures Referred By Daisy paredes Referred To Contact Physical Medicine & Rehab/PM&R Diagnoses Paraplegia (HCC) Reflex neurogenic bladder Procedures CYSTOMETROGRAM W/CAN FILLING ROOM SWEEPER BLADDER IRRIGATION, SIMPLE, LAVAGE &/OR INSTILLATION COMPLEX UROFLOWMETRY ELECTROMYOGRAPHY STUDIES, ANAL/URETHRAL SPHINCTER, OTHER THAN NEEDLE, ANY TECHNIQUE VOIDING PRESSURE STUDIES; INTRA-ABDOMINAL [place] [address] [place] [address] Phone: tel: fax:[phone] [facility] [address] [address] [place] [address] Phone: tel: Referral ID Status Reason Start Date Expiration Date V isits Requested Visits Authorized [id number] Closed Consultation -[facility] 06/13/2024 06/13/2025 1 1 [facility] for visit Narrative* MRI/CT (Routine) - Authorized Specialty Diagnoses / Procedures Referred By Daisy paredes Referred To Contact Radiology / [facility] Diagnoses Pressure ulcer of sacral region, unspecified stage PT WILL NEED A EVERETT LIFT SACRUM/PELVIS WO/W Pressure ulcer of sacral region, unspecified stage [L89.159] BIRDIE WILL FAX ORDER Procedures MRI PELVIS W/O & W/CONTRAST MATERIAL MRI WWO NEU1 B 300 Kristine Howell APRN [address] [place] [address] Phone: tel: fax: Radiology [place] [address] Phone: tel: Referral ID Status Reason Start Date Expiration Date V isits Requested Visits Authorized [id number] Authorized 11/14/2024 01/13/2025 3 3 [facility] Summary Purpose Family History No Family [...] FoundDocuments on File Type Date Recorded Patient Cover Machine Operator Expl anation ACP-Advance Directive ACP-Power of Bench Grinder Latest Code Status on File Code Status Date Activated Date Inactivated Comments Full Code 10/24/2020 7:42 PM Full Code 01/05/2017 7:24 PM 01/06/2017 9:11 PM Documents on File Type Date Recorded Patient Cover Machine Operator Expl anation Advance Directive(s) 01/04/2022 9:24 PM [...] mellitus without complication (HCC) [place] [address] [place] [address] [facility] [address] [place] [address] Scheduling Instructions [facility] - Diabetic Education [address] [place], [place] [address] Specialty Diagnoses / Procedures Referred By Contact Referred To Contact Physical Medicine & Rehab/PM&R Diagnoses Paraplegia (HCC) History of lumbar fusion Vaishali Pierre DO [address] [place] [address] [facility] [place] - Rehab [facility] [address] [place] [address] Referral ID Status Reason Start Date Expiration Date V isits Requested Visits Authorized [id number] Authorized 02/10/2024 02/09/2025 1 1 Scheduling Instructions [...] fusion Procedures MR L-SPINE W/+W/[place] [address] [facility] MRI [address] [place] [address] Referral ID Status Reason Start Date Expiration Date V isits Requested Visits Authorized [id number] Authorized 02/10/2024 02/09/2025 1 1 Specialty Diagnoses / Procedures Referred By Contac t Referred To Contact Radiology Diagnoses Paraplegia (HCC) History of lumbar fusion Procedures XR L-SPINE AP+LATERAL 2-3 [place] [address] [facility] DIAGNOSTIC RADIOLOGY [address] [place] [address] Referral ID Status Reason Start Date Expiration Date Visits Re quested Visits Authorized [id number] Closed 02/10/2024 02/09/2025 1 1 Referral ID Status Reason Start Date Expiration Date Visits Re quested Visits Authorized [id number] Closed 02/10/2024 02/09/2025 1 1 Specialty Diagnoses / Procedures Referred By Contac t Referred To Contact Diagnoses Paraplegia (HCC) History of lumbar fusion Sacral insufficiency fracture, initial encounter Vaishali Pierre DO [address] [place] [address] Referral ID Status Reason Start Date Expiration Date Visits Requested Visits Authorized [id number] [facility]/06[facility]20[facility] 04/06/2025 1 1 Scheduling Instructions You have been referred to the Spine Center. You will be contacted to schedule your appointment within 24 - 48 hours. If you are not contacted within this time frame please call the Spine Center at [phone] to schedule your appointment. Question Answer Reason [...] 2 OR 3 VIEWS Otis Mejia MD [address] [place] [address] [facility] [address] [place] [address] [place] [address] Referral ID Status Reason Start Date Expiration Date Visits Re quested Visits Authorized [id number] Closed 05/11/2024 05/11/2025 1 1 Specialty Diagnoses / Procedures Referred By Contac t Referred To Contact Radiology Diagnoses Sacral insufficiency fracture, initial encounter Procedures XR SACRUM-COCCYX 3 VIEWS Berna Johnson PA-C [address] [place] [address] [place] [address] [facility] [address] [place] [address] [place] [address] Referral ID Status Reason Start Date Expiration Date Visits Re quested Visits Authorized [id number] Closed 05/10/2024 05/10/2025 1 1 Specialty Diagnoses / Procedures Referred By Contac t Referred To Contact Radiology Diagnoses Sacral insufficiency fracture, initial encounter Procedures MR C-SPINE W/O Otis Mejia MD [address] [place] [address] [facility] MRI [address] [place] [address] Referral ID Status Reason Start Date Expiration Date V isits Requested Visits Authorized [id number] Authorized 05/11/2024 05/11/2025 1 1 Specialty Diagnoses / Procedures Referred By Contac t Referred To Contact Radiology Diagnoses Sacral insufficiency fracture, initial encounter Procedures MR T-SPINE W/O Otis Mejia MD [address] [place] [address] [place] [address] Referral ID Status Reason Start Date Expiration Date V isits Requested Visits Authorized [id number] Authorized 05/11/2024 05/11/2025 1 1 Specialty Diagnoses / Procedures Referred By Contac t Referred To Contact Radiology Diagnoses Sacral insufficiency fracture, initial encounter Procedures BD BONE DENSITY SURVEY Otis Mejia MD [address] [place] [address] [facility] BONE DENSITY [address] [place] [address] Referral ID Status Reason Start Date Expiration Date V isits Requested Visits Authorized [id number] Authorized 05/11/2024 05/11/2025 1 1 Specialty Diagnoses / Procedures Referred By Contac t Referred To Contact Physical Medicine & Rehab/PM&R Diagnoses Paraplegia (HCC) Reflex neurogenic bladder Faisal Simeon DO [address] [place] [address] Ms Pm&R [address] [place] [address] Referral ID Status Reason Start Date Expiration Date Visits Requested Visits Authorized [id number] Pending Review [facility] 06/13/2024 06/13/2025 3 3 Scheduling Instructions Please schedule this appointment through Instablogs or call the phone number listed above. [...] Diagnoses Paraplegia (HCC) Faisal Simeon DO [address] [place] [address] Referral ID Status Reason Start Date Expiration Date Visits Requested Visits Authorized [id number] Authorized [facility] 06/13/2024 06/13/2025 3 3 Scheduling Instructions Please call to schedule an appointment. If you are unable to keep your appointment, please call [phone] at least 24 hours in advance. Question Answer Reason for request: Basic Needs (i.e. medical equipment, housing, food, rent, utilities, transpo), Benefits Applications (i.e. social security, job and family services), Vocational (i.e. [place] rehab services [employer], volunteer work), Other Support Services (i.e. medication programs, home accessibility, legal assistance) Other support services requested: Home accessibility Referral ID Status Reason Start Date Expiration Date Visits Re quested Visits Authorized [id number] Closed 05/11/2024 05/11/2025 1 1 Referral ID Status Reason Start Date Expiration Date Visits Re quested Visits Authorized [id number] Closed 05/11/2024 05/11/2025 1 1 Discharge Instructions [...] at most local grocery stores, pharmacies, and [employer]-stores. ? If you have any questions about [...] Contact Information Primary Emergency Contact: Leyla Reynolds [facility] Relation: Spouse Stoker Installation Mechanic needed? No Secondary Emergency Contact: Ronald Reynolds [...] MENTAL STATUS:} IV Access: { ADELINE IV ACCESS:734932488} Nursing Mobility/ADLs: Walking {CHP DME ADLs:004262692} Transfer {CHP DME ADLs:803402850} Bathing {CHP DME ADLs:938764961} Dressing {CHP DME ADLs:848058873} Toileting {CHP DME ADLs:315027034} Feeding {CHP DME ADLs:923237418} Manager Of Administration {CHP DME ADLs:545093589} Med Delivery { ADELINE MED Delivery:075132843} Wound Care Documentation and Therapy: Elimination: Continence: Bowel: {YES / NO:} Bladder: {YES / NO:} Urinary Catheter: {Urinary Catheter:038692646} Colostomy/Ileostomy/Ileal Conduit: {YES / NO:} Date of Last BM: Intake/Output Summary (Last 24 hours) at 10/24/2020 1333 Last data filed at 10/24/2020 1139 Gross per 24 hour Intake 1000 ml Output 325 ml Net 675 ml No intake/output data recorded. Safety Concerns: { ADELINE Safety Concerns:606535424} Impairments/Disabilities: { ADELINE Impairments/Disabilities:949122154} Nutrition Therapy: Current Nutrition Therapy: { ADELINE Diet List:857477407} Routes of Feeding: {P DME Other Feedings:567810024} Liquids: {Windows Server Architect liquid thickness:60138} Daily Fluid Restriction: {CHP DME Yes amt example:427903948} Last Modified Barium Swallow with Video (Video Swallowing Test): {Done Not Done Date:} Treatments at the Time of Hospital Discharge: Respiratory Treatments: Oxygen Therapy: {Therapy; copd oxygen:83405} Ventilator: { CC Vent List:711974187} Rehab Therapies: {THERAPEUTIC INTERVENTION:6766986327} Weight Bearing Status/Restrictions: {[facility] Weight Bearin} Other Medical Equipment (for information only, NOT a DME order): {EQUIPMENT:568527674} Other Treatments: Patient's personal belongings (please select all that are sent with patient): {CHP DME Belongings:314153294} RN SIGNATURE: {Esignature:874749004} CASE MANAGEMENT/SOCIAL WORK SECTION Inpatient Status Date: Readmission Risk Assessment Score: Readmission Risk Risk of Unplanned Readmission: 0 Discharging to Facility/ Agency Name: Address: Phone: Fax: Dialysis Facility (if applicable) Name: Address: Dialysis Schedule: Phone: Fax: Cellophane Bag Machine Operator/Experimental Preflight Mechanic signature: {Esignature:287837657} PHYSICIAN SECTION Prognosis: {Prognosis:0503614379} Condition at Discharge: { Patient Condition:080251298} Rehab Potential (if transferring to Rehab): {Prognosis:8216317165} Recommended Labs or Other Treatments After Discharge: Physician Certification: I certify the above information and transfer of Anmol Reynolds is necessaryfor the continuing treatment of the diagnosis listed and that he requires {Admit to Appropriate Level of Care:75766} for {GREATER/LESS:743091607} 30 days. Update Admission H&P: {CHP DME Changes in HandP:202811208} PHYSICIAN SIGNATURE: * Additional Instructions* Opal Vigil MD - 10/24/2020 Every day change the dressing frequently to keep clean and dry 4 x 4 gauze pads paper tape. May shower 3 days. Avoid soaking or soap for 1 week. Recheck 1 month 5388140. E prescribed [place] 5/325 #28 done documented in this encounter [...] Status: Full Code PT/OT Eval * Ye PradoJOE - PROPOSAL ENGINEER - 10/25/2020 9:43 AM EST Patient is [...] region, with neurogenic claudication Hospital Course Note [id number] [place] [address] DISCHARGE SUMMARY PATIENT NAME: ANMOL REYNOLDS : 1960 MED REC NO: [id number] ROOM: [facility] ACCOUNT NO: [id number] ADMIT DATE: 10/24/2020 PROVIDER: Opal Vigil MD DISCH DATE: HOSPITAL COURSE: Left and bilateral L2-L3, L3-L4, L4-L5 micro decompressions. The patient tolerated the procedure well. Wound drain in place, removal the next day. Once ambulatory with bladder control, plan discharge in good condition. DISCHARGE DIAGNOSIS: L2, L3, L4, L5 canal stenosis with neurogenic claudication, improved. DISCHARGE MEDICATION: [place] 5/325, #28. DISCHARGE INSTRUCTIONS: The patient has been instructed to keep the wound clean and dry about three days, avoiding soaking or soap for a week, recheck in a month. If he has any questions or problems, please contact the office. OPAL VIGIL MD [id number] Doc#: [id number] CC: Chief Complaint and Reason for Visit Chief Complaint LABWORK Chief Complaint LABWORK ALF LAB WORK Chief Complaint LABWORK ALF LAB WORK ALF LAB WORK Chief Complaint ALF LAB WOR K ALF LAB WORK ALF LAB WORK LABWORK Chief Complaint LABWORK ALF LAB WORK LABWORK Chief Complaint LABWORK ALF LAB WORK LABWORK ALF LAB WORK Chief Complaint Admit Date ALF LAB WORK September 20 5:00am ALF LAB WORK September 29 4:00am ALF LAB WORK October 03 5:00am LABWORK October 10, 2024 5: 00am ALF LAB WORK November 29 4:45am LABWORK November 30, 2024 5:00am Chief Complaint Admit Date ALF LAB WORK September 20 5:00am ALF LAB WORK September 29 4:00am ALF LAB WORK October 03 5:00am LABWORK October 10, 2024 5: 00am ALF LAB WORK November 29 4:45am LABWORK November 30, 2024 5:00am ALF LAB WORK December 07, 2024 5: 00am Chief Complaint Admit Date ALF LAB WORK November 29 4:45am LABWORK November 30, 2024 5:00am ALF LAB WORK December 07, 2024 5: 00am ALF LAB WORK January 09, 2025 5: 00am LABWORK February 15, 2025 4:20a m LABOWRK March 01, 2025 5:00a m Chief Complaint Admit Date ALF LAB WORK November 29 4:45am LABWORK November 30, 2024 5:00am ALF LAB WORK December 07, 2024 5: 00am ALF LAB WORK January 09, 2025 5: 00am [...] section and content) DATE CREATED AUTHOR 03/30/2018 [facility] DATE CREATED AUTHOR AUTHOR'S ORGANIZ ATION 03/31/2018 [facility] DATE CREATED AUTHOR AUTHOR'S ORGANIZ ATION 06/22/2018 [facility] DATE CREATED AUTHOR AUTHOR'S ORGANIZ ATION 07/08/2018 [facility] DATE CREATED AUTHOR AUTHOR'S ORGANIZ ATION 10/20/2020 [facility] DATE CREATED AUTHOR AUTHOR'S ORGANIZ ATION 10/27/2020 [facility] DATE CREATED AUTHOR AUTHOR'S ORGANIZ ATION 05/24/2021 [facility] DATE CREATED AUTHOR AUTHOR'S ORGANIZ ATION 10/16/2021 [facility] DATE CREATED AUTHOR AUTHOR'S ORGANIZ ATION 04/25/2022 [facility] DATE CREATED AUTHOR AUTHOR'S ORGANIZ ATION 11/10/2024 [facility] DATE CREATED AUTHOR AUTHOR'S ORGANIZ ATION 03/22/2025 [facility] DATE CREATED AUTHOR AUTHOR'S ORGANIZ ATION 03/27/2025 [facility] DATE CREATED AUTHOR AUTHOR'S ORGANIZ ATION 05/25/2025 [facility] DATE CREATED AUTHOR AUTHOR'S ORGANIZ ATION 05/28/2025 [facility] Reason for Visit (unrecogniz ed section and content) Status Reason Specialty Diagnoses / Procedures Referre d By Contact Referred To Contact Diagnoses L2-3-4-5 STENOSIS Procedures NM LAMINECTOMY,>2 SGMT,LUMBAR LEFT BILATERAL L2-3-4-5 DECOMPRESSION. 2.5 HOURS, C-ARM, POWER RONGEUR. 1ST CASE (PAT AT [facility]) Opal Vigil MD [address] [facility] [address] [place] [address] [facility] Reason Comments Urinary Retention Reason Onset Date Comments new patient appointment 08/06/2023 Reason Onset Date Comments Referral 09/04/2023 Reason Onset Date Comments Referral 08/19/2023 Confirm Receipt of Referral for LUMBER BEARER Appt Scheduling Reason Comments Pain Pt is [...] fusion Procedures MR L-SPINE W/+W/O Vaishali Pierre, [address] [place] [address] S MRI [address] [place] [address] Referral ID Status Reason Start Date Expiration Date Visits Re quested Visits Authorized [id number] Closed 02/10/2024 02/09/2025 1 1 Reason Comments Leg Pain Specialty Diagnoses / Procedures Referred By Contac t Referred To Contact Diagnoses Urinary obstruction Septic shock (HCC) Procedures - Lauryn Hooker MD [address] [place] [address] [facility] [address] [place] [address] Referral ID Status Reason Start Date Expiration Date Visits Re quested Visits Authorized [id number] 1 1 Reason Onset Date Comments Surgery Scheduling 04/15/2024 Reason Onset Date Comments Reschedule 05/04/2024 Specialty Diagnoses / Procedures Referred By Contac t Referred To Contact Diagnoses Calculus of ureter Procedures NM CYSTOURETHROSCOPY NM LITHOLAPAXY COMP/LG > 2.5 CM NM CYSTO W/URETEROSCOPY W/LITHOTRIPSY NM CYSTO W/INSERT URETERAL STENT CYSTOSCOPY POSSIBLE CYSTOLITHOLAPAXY BILATERAL URETEROSCOPY ASTRID LASER LITHOTRIPSY BILATERAL URETERAL STENT CHANGE Dashawn Grimm MD [address] [place] [address] [address] [place] [address] Referral ID Status Reason Start Date Expiration Date Visits Re quested Visits Authorized [id number] 1 1 Reason Onset Date Comments Update 05/10/2024 Specialty Diagnoses / Procedures Referred By Contac t Referred To Contact Radiology Diagnoses Sacral insufficiency fracture, initial encounter Procedures XR SACRUM-COCCYX 3 VIEWS Berna Johnson PA-C [address] [place] [address] [facility] [address] [place] [address] Referral ID Status Reason Start Date Expiration Date Visits Re quested Visits Authorized [id number] Closed 05/10/2024 05/10/2025 1 1 Reason Onset Date Comments Labs Only 05/13/2024 Reason Comments Numbness/tingling New patient, to establish relationship Specialty Diagnoses / Procedures Referred By Contac t Referred To Contact Diagnoses Paraplegia (HCC) History of lumbar fusion Sacral insufficiency fracture, initial encounter [facility], Vaishali, DO [address] [place] [address] Referral ID Status Reason Start Date Expiration Date V isits Requested Visits Authorized [id number] Closed Consultation -[facility] 04/06/2024 04/06/2025 1 1 Reason Comments Other Abnormal labs, blood cultures has been done to pt in facility, gram + cocci. Had back sx 2 yrs ago that resulted to paraplegia, pt is paralyze from waist down. Afebrile, aox4 Specialty Diagnoses / Procedures Referred By Daisy paredes Referred To Contact Diagnoses Positive blood cultures Procedures - Heydi Concepcion MD [address] [place] [address] [facility] [address] [place] [phone] Referral ID Status Reason Start Date Expiration Date Visits Re quested Visits Authorized [id number] 1 1 Reason Comments New Patient Leg Pain Pt states having jeri n on his paralyzed legs, pain rate 8/10. Reason Comments New patient, to establish relationship Specialty Diagnoses / Procedures Referred By Contact Referred To Contact Physical Medicine & Rehab/PM&R Diagnoses Paraplegia (HCC) History of lumbar fusion Vaishali Pierre DO [address] [place], [place] [id number] [facility] [address] [place] [phone] Referral ID Status Reason Start Date Expiration Date V isits Requested Visits Authorized [id number] Pending Review 02/10/2024 02/09/2025 1 1 Reason Onset Date Comments Reschedule 06/15/2024 Specialty Diagnoses / Procedures Referred By Daisy t Referred To Contact Radiology Diagnoses Sacral insufficiency fracture, initial encounter Procedures MR T-SPINE W/O Otis Mejia MD [address] [place], [place] [id number] S MRI [address] [place] [address] Referral ID Status Reason Start Date Expiration Date Visits Re quested Visits Authorized [id number] Closed 05/11/2024 05/11/2025 1 1 Reason Comments Evaluation Follow up Reason Comments Osteoporosis Reason Onset Date Comments Appointment 10/25/2024 Reason Onset Date Comments Hospital F/U 02/19/2025 Reason Onset Date Comments Other 03/07/2025 Reason Comments Evaluation Reason Comments Nephrolithiasis Reason Comments Wound Check Sacrum / left ischiu m Reason Comments Wound Infection Per EMS pt was sent here from the [facility] for wound infections. Pt has two wound on his sacrum - one at the top of sacrum and one at the bottom of the buttocks. Denies any fever/ CP/FEVER/ SOB. Pt is paralysis. Specialty Diagnoses / Procedures Referred By Daisy t Referred To Contact Diagnoses Other acute osteomyelitis, other site (HCC) Procedures m86.18 Georgette Bueno MD [address] [place] [address] Phone: tel: fax: [facility] [address] [place] [phone] Phone: tel: Referral ID Status Reason Start Date Expiration Date Visits Re quested Visits Authorized [id number] 1 1 Reason Onset Date Comments Labs Only 05/24/2025 Missed lab notif ication Ordered Prescriptions (unrec ognized section and content) [...] or prosecute any alcohol or drug abuse patient.[facility] the event this information is protected by the Federal Confidentiality of Alcohol and Drug Abuse Patient Records regulations: The Federal rules restrict any use of the information to criminally investigate or prosecute any alcohol or drug abuse patient.[facility] the event this information is protected by the Federal Confidentiality of Alcohol and Drug Abuse Patient Records regulations: The Federal rules restrict any use of the information to criminally investigate or prosecute any alcohol or drug abuse patient.[facility] the event this information is protected by the Federal Confidentiality of Alcohol and Drug Abuse Patient Records regulations: The Federal rules restrict any use of the information to criminally investigate or prosecute any alcohol or drug abuse patient.[facility] the event this information is protected by the Federal Confidentiality of Alcohol and Drug Abuse Patient Records regulations: The Federal rules restrict any use of the information to criminally investigate or prosecute any alcohol or drug abuse patient.[facility] the event this information is protected by the Federal Confidentiality of Alcohol and Drug Abuse Patient Records regulations: The Federal rules restrict any use of the information to criminally investigate or prosecute any alcohol or drug abuse patient.[facility] the event this information is protected by the Federal Confidentiality of Alcohol and Drug Abuse Patient Records regulations: The Federal rules restrict any use of the information to criminally investigate or prosecute any alcohol or drug abuse patient.[facility] the event this information is protected by the Federal Confidentiality of Alcohol and Drug Abuse Patient Records regulations: The Federal rules restrict any use of the information to criminally investigate or prosecute any alcohol or drug abuse patient.[facility] Care Teams (unrecognized sec tion and content) Punching Machine Operator Relationship Specialty Start Date End Date Ambrosio Monroy, DO [address] [place] [address] PCP - General Family Practice 05/21/17 Penny Cameron MD [address] [address] Consulting General Surgery 01/17/21 Gayle Scott MD [address] [place] [address] Consulting Infectious Diseases 12/03/21 Ambrosio Monroy, DO [address] [place] [address] Home Care Physician Internal Medicine 12/03/21 Punching Machine Operator Relationship Specialty Start Date End Date Ambrosio Monroy, DO [address] [place] [address] PCP - General Family Practice 05/21/17 Penny Cameron MD [address] [address] Consulting General Surgery 01/17/21 Gayle Scott MD [address] [place] [address] Consulting Infectious Diseases 12/03/21 Ambrosio Monroy, DO [address] [place] [address] Home Care Physician Internal Medicine 12/03/21 Punching Machine Operator Relationship Specialty Start Date End Date Ambrosio Monroy, DO [address] [place] [address] PCP - General Family Practice 05/21/17 Penny Cameron MD [address] [address] Consulting General Surgery 01/17/21 Gayle Scott MD [address] [place] [address] Consulting Infectious Diseases 12/03/21 ErinsyedAmbrosio, DO [address] [place] [address] Home Care Physician Internal Medicine 12/03/21 Team Status: Active Member Role Status Dates Dr. Ambrosio Monroy DO Primary Care Provider Active Team Status: Inactive Member Role Status Dates Dr. Ambrosio Monroy DO Primary Care Provider Active Tab MURO Attending Provider Active Team Status: Active Member Role Status Dates Dr. Ambrosio Monroy DO Primary Care Provider Active Tab MURO Attending Provider Active Punching Machine Operator Relationship Specialty Start Date End Date Ambrosio Monroy DO [address] [place] [address] PCP - General 06/07/17 Team Status: Inactive Member Role Status Dates Dr. Ambrosio Monroy DO Primary Care Provider Active Tab MURO Attending Provider, Referring Provi krish Active Punching Machine Operator Relationship Specialty Start Date End Date Yudith Monroya DO Larry [address] [place] [address] PCP - General 06/07/17 Punching Machine Operator Relationship Specialty Start Date End Date Yudith Monroya DO Larry [address] [place] [address] PCP - General 06/07/17 Punching Machine Operator Relationship Specialty Start Date End Date Yudith Monroya DO Larry [address] [place] [address] PCP - General 06/07/17 Punching Machine Operator Relationship Specialty Start Date End Date Ambrosio Monroy DO [address] [place] [address] PCP - General 06/07/17 Punching Machine Operator Relationship Specialty Start Date End Date Vaishali PierreDO [address] [place] [address] Physician Physical Medicine & Rehab/PM&R 03/05/24 Punching Machine Operator Relationship Specialty Start Date End Date Ambrosio Monroy DO [address] [place] [address] PCP - General 06/07/17 Punching Machine Operator Relationship Specialty Start Date End Date Ambrosio Monroy DO [address] [place] [address] PCP - General 06/07/17 Punching Machine Operator Relationship Specialty Start Date End Date Ambrosio Monroy DO [address] [place] [address] PCP - General 06/07/17 Punching Machine Operator Relationship Specialty Start Date End Date Juan VaishaliDO [address] [place], [place] [address] Physician Physical Medicine & Rehab/PM&R 03/05/24 Punching Machine Operator Relationship Specialty Start Date End Date Ambrosio Monryo DO [address] [place] [address] PCP - General 06/07/17 Dashawn Grimm MD [address] [place] [address] [address] [place] [address] Surgeon Urology 05/05/24 Punching Machine Operator Relationship Specialty Start Date End Date Ambrosio Monroy DO [address] [place] [address] PCP - General 06/07/17 Dashawn Grimm MD [address] [address] Surgeon Urology 05/05/24 Punching Machine Operator Relationship Specialty Start Date End Date Vaishali Pierre DO [address] [place] [address] Physician Physical Medicine & Rehab/PM&R 03/05/24 Punching Machine Operator Relationship Specialty Start Date End Date Vaishali Pierre DO [address] [place] [address] Physician Physical Medicine & Rehab/PM&R 03/05/24 Punching Machine Operator Relationship Specialty Start Date End Date Ambrosio Monroy DO [address] [facility] [address] [place] [address] PCP - General 06/07/17 Dashawn Grimm MD [address] [address] Surgeon Urology 05/05/24 Punching Machine Operator Relationship Specialty Start Date End Date Vaishali Pierre DO [address] [place] [address] Physician Physical Medicine & Rehab/PM&R 03/05/24 Punching Machine Operator Relationship Specialty Start Date End Date Ambrosio Monroy DO [address] [facility] [address] [place] [address] PCP - General 06/07/17 05/18/24 Tab Dupont [address] [place] [address] PCP - General Internal Medicine 05/19/24 Dashawn Grimm MD 201 [facility] 3 [place] [address] Surgeon Urology 05/05/24 Punching Machine Operator Relationship Specialty Start Date End Date Ambrosio Monroy DO [address] [place] [address] PCP - General 06/07/17 05/18/24 Punching Machine Operator Relationship Specialty Start Date End Date Vaishali Pierre DO [address] [place] [address] Physician Physical Medicine & Rehab/PM&R 03/05/24 Otis Mejia MD [address] [place] [address] Physician Orthopaedic Surgery 06/11/24 Punching Machine Operator Relationship Specialty Start Date End Date Vaishali Pierre DO [address] [place] [address] Physician Physical Medicine & Rehab/PM&R 03/05/24 Otis Mejia MD [address] [place] [address] Physician Orthopaedic Surgery 06/11/24 Punching Machine Operator Relationship Specialty Start Date End Date Tab Dupont [address] [place] [phone] PCP - General Internal Medicine 05/19/24 Dashawn Grimm MD 201 [facility] 3 [place] [address] Surgeon Urology 05/05/24 Punching Machine Operator Relationship Specialty Start Date End Date Vaishali Pierre DO [address] [place] [address] Physician Physical Medicine & Rehab/PM&R 03/05/24 Otis Mejia MD [address] [place] [address] Physician Orthopaedic Surgery 06/11/24 Punching Machine Operator Relationship Specialty Start Date End Date Vaishali Pierre DO [address] [place] [address] Physician Physical Medicine & Rehab/PM&R 03/05/24 Otis Mejia MD [address] [place] [address] Physician Orthopaedic Surgery 06/11/24 Punching Machine Operator Relationship Specialty Start Date End Date Vaishali Pierre DO [address] [place] [address] Physician Physical Medicine & Rehab/PM&R 03/05/24 Otis Mejia MD [address] [place] [address] Physician Orthopaedic Surgery 06/11/24 Punching Machine Operator Relationship Specialty Start Date End Date Vaishali Pierre DO [address] [place] [address] Physician Physical Medicine & Rehab/PM&R 03/05/24 Otis Mejia MD [address] [place] [address] Physician Orthopaedic Surgery 06/11/24 Punching Machine Operator Relationship Specialty Start Date End Date JuanVaishaliDO [address] [place] [address] Physician Physical Medicine & Rehab/PM&R 03/05/24 Otis Mejia MD [address] [place] [address] Physician Orthopaedic Surgery 06/11/24 Punching Machine Operator Relationship Specialty Start Date End Date Macrina PierreedDO [address] [place] [address] Physician Physical Medicine & Rehab/PM&R 03/05/24 Otis Mejia MD [address] [place] [address] Physician Orthopaedic Surgery 06/11/24 Punching Machine Operator Relationship Specialty Start Date End Date Macrina PierreedDO [address] [place] [address] Physician Physical Medicine & Rehab/PM&R 03/05/24 Otis Mejia MD [address] [place] [address] Physician Orthopaedic Surgery 06/11/24 Giuliano Shultz DO [address] [place] [address] Physician Rheumatology 09/10/24 Fasial Simeon DO [address] [place] [address] Physician Physical Medicine & Rehab/PM&R 09/30/24 Punching Machine Operator Relationship Specialty Start Date End Date Tab Dupont [address] [place] [address] PCP - General Internal Medicine 05/19/24 Dashawn Grimm MD [address] [facility] [address] [place] [address] Surgeon Urology 05/05/24 Team Status: Inactive Member [...] December 07, 2024 End: December 07, 2024 Punching Machine Operator Relationship Specialty Start Date End Date Penny Cameron MD [address] [facility] [address] [place] [address] Consulting General Surgery 01/17/21 Gayle Scott MD [address] [facility] [address] [place] [phone] Consulting Infectious Diseases 12/03/21 Ambrosio Monroy MD [address] [place] [address] [address] [place] [address] Home Care Provider Internal Medicine 12/03/21 Punching Machine Operator Relationship Specialty Start Date End Date Tab Dupont [address] [place] [phone] PCP - General Internal Medicine 05/19/24 Dashawn Grimm MD [address] [address] Surgeon Urology 05/05/24 Punching Machine Operator Relationship Specialty Start Date End Date Penny Cameron MD [address] [address] Consulting General Surgery 01/17/21 Gayle Scott MD [address] [phone] Consulting Infectious Diseases 12/03/21 Ambrosio Monroy MD [address] [place] [address] Home Care Provider Internal Medicine 12/03/21 Punching Machine Operator Relationship Specialty Start Date End Date Penny Cameron MD [address] [address] Consulting General Surgery 01/17/21 Gayle Scott MD [address] [phone] Consulting Infectious Diseases 12/03/21 Ambrosio Monroy MD [address] [facility] [address] [place] [address] Home Care Provider Internal Medicine 12/03/21 Punching Machine Operator Relationship Specialty Start Date End Date Tab Dupont [address] [place] [phone] PCP - General Internal Medicine 05/19/24 Dashawn Grimm MD [address] [address] Surgeon Urology 05/05/24 Punching Machine Operator Relationship Specialty Start Date End Date Adrianneemmanuel Tab [address] [place] [phone] PCP - General Internal Medicine 05/19/24 Dashawn Grimm MD [address] [address] Surgeon Urology 05/05/24 Punching Machine Operator Relationship Specialty Start Date End Date Kiah Tab [address] [place] [phone] PCP - General Internal Medicine 05/19/24 Dashawn Grimm MD [address] [address] Surgeon Urology 05/05/24 Punching Machine Operator Relationship Specialty Start Date End Date Vaishali Pierre DO [address] [place] [address] Physician Physical Medicine & Rehab/PM&R 03/05/24 Otis Mejia MD [address] [place] [address] Physician Orthopaedic Surgery 06/11/24 Giuliano Shultz DO [address] [place] [address] Physician Rheumatology 09/10/24 Faisal Simeon DO [address] [place] [address] Physician Physical Medicine & Rehab/PM&R 09/30/24 Team [...] March 01, 2025 End: March 01, 2025 Punching Machine Operator Relationship Specialty Start Date End Date Tab Dupont [address] [place] [phone] PCP - General Internal Medicine 05/19/24 Dashawn Grimm MD [address] [address] Surgeon Urology 05/05/24 Team Status: Active Member Role Status Dates Dr. Ambrosio Monroy DO Primary Care Provider Active Start: March 01, 2025 Tab MURO Attending Provider Active Sta rt: March 01, 2025 Punching Machine Operator Relationship Specialty Start Date End Date Tab Dupont [address] [place] [phone] PCP - General Internal Medicine 05/19/24 Dashawn Grimm MD [address] [address] Surgeon Urology 05/05/24 Punching Machine Operator Relationship Specialty Start Date End Date Penny Cameron MD [address] [place] [address] Consulting General Surgery 01/17/21 Gayle Scott MD [address] [facility] [address] [place] [address] Consulting Infectious Diseases 12/03/21 Ambrosio Monroy MD [address] [facility] [address] [place], [place] [phone] Home Care Provider Internal Medicine 12/03/21 Punching Machine Operator Relationship Specialty Start Date End Date Tab Dupont MD [address] [address] PCP - General Internal Medicine 03/20/25 Penny Cameron MD [address] [address] Consulting General Surgery 01/17/21 Gayle Scott MD [address] [facility] [address] [place] [phone] Consulting Infectious Diseases 12/03/21 Ambrosio Monroy MD [address] [facility] [address] [place] [address] Home Care Provider Internal Medicine 12/03/21 Punching Machine Operator Relationship Specialty Start Date End Date Tab Dupont [address] [place] [phone] PCP - General Internal Medicine 05/19/24 Dashawn Grimm MD [address] [place] [address] 3 [place] [address] Surgeon Urology 05/05/24 Punching Machine Operator Relationship Specialty Start Date End Date Tab Dupont [address] [place] [phone] PCP - General Internal Medicine 05/19/24 Dashawn Grimm MD [address] [facility] 3 [place] [address] Surgeon Urology 05/05/24 Goals (unrecognized section and [...] Provider: Allie Griffin RN - Reason: Patient/family refused)2099 (Not Given - Provider: Marino Trevizo RN - Reason: Patient/family refused - Comment: client stated he had a large bowel movement a few hours ago) 0900 (Not Given - Provider: Allie Griffin RN - Reason: Patient/family refused)2099 (Not Given - Provider: Erika Li RN - Reason: Patient/family refused) 0905 (Not Given - Provider: Faby Maxwell RN - Reason: Patient/family refused) enoxaparin (Lovenox) syringe 40 mg 40 mg, SubCUTAneous, Every 24 hours scheduled (Daily), First dose on Thu04/15/24 at 0900, Indication of Use: Prophylaxis-DVT/PE, Indications: Prophylaxis of Venous Thromboembolism, On hold since Thu04/16/2024 at 0816 until manually unheld 09 (Dose [...] Faby Maxwell, LIBRADO)1132 (Stopped - Provider: Faby Maxwell RN) ferrous sulfate tablet 325 mg 325 mg, Oral, Daily with breakfast, First dose on Thu04/15/24 at 0800 0832 (Given - Provider: Allie Griffin RN) 0828 (Given - Provider: Allie Griffin RN) 0905 (Given - Provider: Faby Maxwell, LIBRADO) fluconazole [...] 2027 (Given - Provider: Erika Li, RN) Insulin Lispro (Humalog) injection 0-12 Units(Linked [...] Provider: Allie Griffin RN)1220 (Given - Provider: Alile Griffin RN)1648 (Given - Provider: Allie Griffin [...] 350-400 10 Units Above 400 12 Units 2105 (Given - Provider: Marino Trevizo, LIBRADO) 2027 [...] Meropenem Med-Surg/Crit Care Init Dosing HARINDER 8, [facility] Consultant cl >=50, 3h Mini-Bag Plus bag, Suspected [...] Trevizo RN)0921 (New Bag - Provider: Allie Grififn RN)1221 (Stopped - Provider: Allie Griffin RN)1648 (New Bag - Provider: Allie Griffin RN)1948 (Stopped - Provider: Erika Li, LIBRADO) 0036 (New Bag - Provider: Erika Li, LIBRADO)0336 (Stopped - Provider: Erika Li, LIBRADO) mirtazapine (Remeron) tablet 7.5 mg 7.5 mg, Oral, Nightly, First dose on Thu04/14/24 at 2245 2106 (Given - Provider: Marino Trevizo RN) 2028 (Given - Provider: Erika Li, RN) polyethylene glycol (PEG) 3350 (Miralax) packet [...] or chew. 1526 (Given - Provider: Allie Griffin, LIBRADO) pregabalin (Lyrica) capsule 200 mg 200 mg, Oral, 3 times daily, First dose on Thu04/14/24 at 2245 0832 (Given - Provider: Allie Griffin RN)1525 (Given - Provider: Allie Griffin, LIBRADO)2106 (Given - Provider: Marino Trevizo RN) 0828 (Given - Provider: Allie Griffin RN)1620 (Given - Provider: Allie Griffin RN)2028 (Given - Provider: Erika Li, LIBRADO) 0904 [...] As needed, low blood sugar, Starting on Fabiola 04/14/24 at 2240, If blood glucose less [...] sedation for opioid reversal - MUST notify visitor services information assistant provider immediately after first dose, may give [...] at 2240 0831 (Given - Provider: Allie Griffin, RN)1526 (Given - Provider: Allie Griffin RN) 1619 (Given - Provider: Allie Griffin RN)2028 (Given - Provider: Erika Li, RN) [...] 2,000 mg, IntraVENous, Administer over 30 Minutes, Media Relations Director to O.R., On Fabiola 05/05/24 at 1115, [...] Use: Prophylaxis-DVT/PE, Indications: Prophylaxis of Venous Thromboembolism 191 (Given - Provider: Carmel Merritt RN) 0839 (Given - Provider: Bianca Rodgers, LIBRADO) famotidine (Pepcid) tablet 20 mg (COMPLETED)(Linked Group 1) 20 mg, Oral, Once, On Fabiola 05/05/24 at 1115, For 1 dose, Preprocedure, IV [...] Bianca Rodgers RN)1808 (Given - Provider: Arlen Doherty, LIBRADO) Insulin Lispro (Humalog) injection 0-18 Units(Linked [...] dialysis. 1130 (New Bag - Provider: Karlee Bell, LIBRADO)1520 (Paused - Provider: Jj Flores CRNA - Comment: Switch to gravity)1521 (Restarted - Provider: Jj Flores CRNA)1640 (Anesthesia Volume Adjustment - Provider: Jj Flores, BENJA) 0845 (New Bag - Provider: Bianca Rodgers [...] 24 hours. 1414 (Given - Provid er: Bianac Rodgers RN) bisacodyl (Dulcolax) EC tablet 5 [...] NOT ALERT or NPO., Starting on Fabiola 05/05/24 at 1821, If patient does not respond [...] sedation for opioid reversal - MUST notify visitor services information assistant provider immediately after first dose, may give IM or SQ if no IV access +++ ondansetron (Zofran) injection 4 mg(Linked Group 4) 4 mg, IntraVENous, Every 6 hours PRN, nausea, vomiting, Starting on Fabiola 24 at 1657, 1st Line. Give IV if [...] PRN, bladder spasms, Pain, Starting on Fabiola 24 at 1658 polyethylene glycol (PEG) 3350 (Miralax) packet 17 g 17 g, Oral, Daily PRN, constipation, Starting on Fabiola 05/05/24 at 1657, 1st line for treatment of constipation - give scheduled if no bowel movement in past 24 hours. sodium chloride 0.9 % irrigation solution (CANCELED) As needed, Starting on Fabiola 05/05/24 at 1541, Intraprocedure 1541 (Given - Provider: Dashawn Grimm MD) sterile water irrigation solution (CANCELED) As needed, Starting on Fabiola 05/05/24 at 1538, Intraprocedure 1538 (Given - Provider: [...] Tract Infection 0132 (Stopped - Provider: Kim Benz, RN)0530 (New Bag - Provider: Kim Benz RN)0930 (Stopped - Provider: Dedrick Martin RN)1308 (New Bag - Provider: Dedrick Maritn RN)1708 (Stopped - Provider: Dedrick Martin RN) docusate sodium (Colace) capsule 100 mg 100 mg, Oral, 2 times daily, First dose on Thu05/18/24 at 0900 0900 (Not Given - Provider: Dedrick Martin RN - Reason: Patient/family refused)2045 (Not Given - Provider: Aleksandra Pinon RN - Reason: Patient/family refused) 0837 (Given - Provider: Elly Cormier RN)211 (Given - Provider: Bev Carey RN) 0812 [...] 12 Units 0839 (Given - Provider: Dedrick Martin, RN)1308 (Given - Provider: Dedrick Martin, RN)1834 (Given - Provider: Dedrick Martin RN) [...] at 2100 2045 (Given - Provider: Aleksandra Pinon, RN) 2109 (Given - Provider: Bev Carey, RN) 2099 (Canceled Entry - Provider: Automatic Discharge Provider - Comment: Automatically canceled at discontinue of medication order) oxyCODONE (Roxicodone) immediate release tablet 15 mg 15 mg, Oral, 4 times daily, First dose on Thu05/19/24 at 1700 0839 (Given - Provider: eDdrick Martin RN)1308 (Given - Provider: Dedrick aMrtin RN)1834 (Given - Provider: Dedrick Martin RN)2203 [...] or split. 0839 (Given - Provider: Dedrick Mratin RN) 0838 (Given - Provider: Elly Cormier [...] have IV access., Starting on Thu05/18/24 at 0339, After administration, attempt intravenous access and start [...] 0600 0534 (Given - Provider: Kim Benz, LIBRADO)1101 (Given - Provider: Dedrick Martin RN)2052 (Given - Provider: Aleksandra Pinon, RN) 0339 (Given - Provider: Aleksandra Pnion, RN) naloxone (Narcan) injection 0.4 mg 0.4 mg, IntraVENous, Every 5 min PRN, opioid reversal, respiratory depression, Starting on Thu05/18/24 at 0051, +++ For RR <10, pinpoint pupils, over sedation for opioid reversal - MUST notify visitor services information assistant provider immediately after first dose, may give [...] sodium chloride 0.9 % 100 mL IVPB (Add-Clay) 3,000 mg, IntraVENous, at 200 mL/hr, Administer over 30 Minutes, Every 6 hours, First dose on Thu04/26/25 at 1230, ADD-Clay bag, Suspected Indication (Select all that apply): [...] King, LIBRADO)1608 (New Bag - Provider: Joann King RN)1659 [...] RN) 0853 (Given - Provider: Cheryl Foster, LIBRADO)2124 (Given - Provider: Valarie King, LIBRADO) 0908 (Given - Provider: Joann King, LIBRADO)2100 [...] Christel Brower RN)1704 (Given - Provider: Christel Brower, LIBRADO) 0851 (Not Given - Provider: Cheryl Foster [...] RN) 1024 (New Bag - Provider: Cheryl Foster, RN)1150 (Stopped - Provider: Cheryl Foster, RN) 0908 (New Bag - Provider: Joann [...] 0900 0807 (Given - Provider: Christel Brower, LIBRADO)1304 (Given - Provider: Christel Brower, LIBRADO)2102 (Given - Provider: Valarie King, LIBRADO) 0852 [...] at 2100 2100 (Given - Provider: Valarie King, RN) 2124 (Given - Provider: Valarie King [...] King RN) 0852 (Given - Provider: Cheryl Foster, LIBRADO)1354 (Given - Provider: Cheryl Foster RN)1727 (Given [...] King RN)0247 (Stopped - Provider: Valarie King, LIBRADO)1222 (New Bag - Provider: Cheryl Foster RN)1427 (Stopped - Provider: Cheryl Foster RN) 0100 (New Bag - Provider: Valarie King RN)0328 (Stopped - Provider: Valarie King RN)1322 (New Bag - Provider: Joann King, LBIRADO)1525 (Stopped - Provider: Joann King, LIBRADO) PRN [...] 04/22/25 at 0237 0807 (Given - Provider: Chrsitel Brower RN)2100 (Given - Provider: Valarie King, [...] BE BASED ON THE PRIMARY CLINICAL RECORDS. [employer] [facility]. provides no warranty or guarantee of the accuracy or completeness of information in this document.
[2025-05-29 08:48] LABS: Hematocrit 36.8 % (40-54); Hemoglobin 12.1 g/dL (13.0-16.5); Mean Corp Hgb Conc 32.9 g/dL (32-36); Mean Corpuscular Volume 91.1 fL (80-94); Mean Platelet Vol. 10.6 fl (6.2-12.0); Platelet Count 243 K/mm3 (150-450); RBC Distribution Width CV 15.7 % (11.6-14.6); RBC Distribution Width SD 52.5 fl (35.1-43.9); Red Blood Count 4.04 M/mm3 (4.6-6.2); White Blood Count 6.9 K/mm3 (4.4-11.0)
[2025-05-29 09:25] LABS: AST(SGOT) 18 U/L (<=37); Alanine Aminotransfer ALT/SGPT 14 U/L (<=46); Albumin, Serum 3.2 g/dL (3.4-4.8); Alkaline Phosphatase 113 U/L (40-129); Anion Gap 12 (5-15); BUN 7 mg/dL (4-19); BUN/Creat Ratio 16.4 RATIO (10-20); CRP 20.40 mg/L (0.0-3.0); Calcium,Total 8.9 mg/dL (7.6-11.0); Carbon Dioxide 20.8 mmol/L (21.0-32.0); Chloride 107 mmol/L (98-108); Globulin 3.6 g/dL (2.2-4.2); Glucose 91 mg/dL (70-99); Potassium 3.6 mmol/L (3.3-5.1)
[2025-05-29 09:42] LABS: Vancomycin, Trough Level 18.5 ug/mL (5.0-15.0)
== END ==
LOC: OLS.SANC 05:00
PROVIDERS: PCP Family Medicine; Visit Provider Internal Medicine
DX: D64.9 Anemia, unspecified (principal); E11.9 Type 2 diabetes mellitus without complications; G82.20 Paraplegia, unspecified; A41.9 Sepsis, unspecified organism
CPT/HCPCS: 36415; 80053; 80202; 85027; 86140

== ENCOUNTER → 2025-07-17 21:47 | Outpatient (REF) | payer MEDICARE, MEDICAID, SELFPAY ==
[2025-07-18 08:43] LABS: Mucous, Urine 0 SEEN /hpf (<or=2+); Squamous Epithelial Cells - UA 0 SEEN /hpf (0-5)
[2025-07-18 09:20] LABS: Color, Urine Yellow (Yellow); Glucose, Dipstick Normal (Normal); Ketone-Dipstick Negative (Negative); Leukocyte Esterase-Dipstick 500 /ul (Negative); Nitrite-Dipstick Negative (Negative); Occult Blood-Urine 10 /ul (Negative); Protein-Dipstick 30 mg/dl (Negative); Specific Gravity, Urine 1.010 (1.002-1.030); Urine Bilirubin Dipstick Negative (Negative)
[2025-07-18 09:47] LABS: Red Blood Cells-Urine 0-5 SEEN /hpf (0-5)
== END ==
LOC: OLS.SANC 21:47
PROVIDERS: PCP Family Medicine; Visit Provider Internal Medicine
DX: R41.82 Altered mental status, unspecified (principal)
CPT/HCPCS: 81001; 87077; 87086; 87088; 87186

== ENCOUNTER → 2025-07-31 05:00 | Outpatient (REF) | payer MEDICARE, MEDICAID, SELFPAY ==
--- OUTSIDE RECORDS SUMMARY | 2025-07-31 04:08 | XMS RPT_ITS | CCD ---
Author Organization [facility] Care Team Providers Care Player Development Manager Name Role Phone YARITZA, GALE A Unavailable [...] Provider Unavailabl e Placeway DO, Vaishali Unavailable [phone] Esterle DO, Ambrosio M Primary Care Provider Jorge IRWIN, Dashawn Enriquez Unavailable Ambrosio Monroy DO Primary Care Provider [phone] Tab Dupont Primary Care Provider Otis Mejia [...] Dr. Ambrosio Ayala Primary Care Provider [phone] Tab Joshi Attending Provider Unavailab Tab Benson Referring Provider UnavailDr. Daisy Matthews MD Attending Provider Dr. Daisy Garay MD Referring Provider Cindyva Dr. Ambrosio Sanchez DO Primary Care Provider [phone] Tab Joshi Attending Provider Unavailab Tab Benson [...] able TAB DUPONT Primary Care Unavaila ble KATCYRUS, PETER Primary Care Unavailable GEORGETTE BUENO Admitting Unavailable BERHANE MORENO Attending Unavailable JO-ANN ORTIZ Consulting Unavailable SAVAGE CASTILLO Attending Unavailable KATSACAROLINE, PETER Primary Care Unavailable YOANA SOLITARIO Attending Unavailable KATSAROS, PETER Primary Care Unavailable Esterle, Ambrosio M Primary Care Unavailable Katsaros Tab MURO Attending Unavailable Esterle, Ambrosio M Primary Care Unavailable Costello OLSWardbaljeet Referring Unavailable Costello OLS Babbalsamsonet Attending Unavailable Esterle, Ambrosio M Primary Care Unavailable Katsaros Tab MURO Attending Unavailable Esterle, Ambrosio M Primary Care Unavailable Adriannesaros Tab MURO Referring Unavailable Katsaros JINA, Tab Attending Unavailable Esterle, [...] Care Unavailable Katsaros Tab MURO Referring Unavailable Katsaros Tab MURO Attending Unavailable Esterle, Ambrosio M Primary Care Unavailable Katsaros JINA, Tab Attending Unavailable Esterle, Ambrosio M Primary Care Unavailable Katsaros Tab MURO Attending Unavailable Esterle, Ambrosio M Primary Care Unavailable KatsaTab Hernandez Referring Unavailable Katsaros JINA, Tab Attending Unavailable Esterle, Ambrosio M Primary Care Unavailable Katsaros OLS, Tab Attending Unavailable Ambrosio Monroy Primary Care [...] sodium chloride 0.9 % 100 mL IVPB (4 sources) Start: 04-28-2025 End: 06-06-2025 take 3000 mg intravenously every six hours ampicillin-sulbac marquis 3,000 mg in sodium chloride 0.9 % 100 mL IVPB Infuse 3,000 mg into a venous catheter every 6 hours. stop date of antibiotic is 06/06/2025 04/28/2025 06/06/2025 Active apixaban 5 mg oral tablet (18 sources) Factor Xa Inhibitor Start: 02-22-2025 End: [...] Inject 825 mg intravenously q 24 [place]. [address] mg 0 01/24/2022 02/25/2022 Active Comment on [...] Active docusate sodium 50 mg / sennosides, fdc 8.6 mg oral tablet (20 sources) Start: [...] Start: 06-18-2017 take 1 capsule by mo [facility] once daily DULoxetine (CYMBALTA) 60 MG extended [...] 01/24/2022 Active take 1 capsule by mo [facility] twice daily gabapentin (NEURONTIN) 300 MG capsule Take 300 mg by mouth 2 times daily 0 Active Comment on above: Take 1 capsule by mo [facility] every 12 hours for 30 days. HYDROmorphone [...] above: Take 1 tablet by jeison every 6 hours as needed (Anxiety). hyoscyamine [...] 30 mL, Oral, DAILY PRN, Constipation, Starting 10/24/20 at 1942 First line therapy for constipation. [...] Comment on above: Take 1 capsule by [facility] once daily. therapeutic multivitamin-minera ls (THERA-M PLUS) 9 mg iron-400 mcg tablet (3 sources) therapeutic multivitamin-forensic medical examiner als (THERA-M PLUS) 9 mg iron-400 mcg tablet Take 1 tablet by mouth once daily. Active Vancomycin (8 sources) Glycopeptide Antibacterial Start: End: take 1500 [...] sodium chloride 0.9 % 100 mL IVPB (Add-Steens) (2 sources) Start: 04-26-2025 End: 04-29-2025 take 3000 mg intravenously every six hours 3,000 mg, IntraVENous, at 200 mL/hr, Administer over 30 Minutes, Every 6 hours, First dose on Thu04/26/25 at 1230, ADD-Steens bag, Suspected Indication (Select all that apply): [...] daily as needed. Take 1 tablet by [facility] twice daily. calcium carbonate 500 mg chewable tablet (20 sources) Start: 04-22-2025 End: 04-29-2025 take 1 tablet by mouth every eight hours as needed for gastroesophageal reflux disease Start: 05-18-2024 End: 05-22-2024 take 1 tablet by mouth every eight hours as needed for gastroesophageal reflux disease take 2 tablets by mo [facility] every eight hours as needed for gastroesophageal [...] Comment on above: Take 1 capsule by [facility] twice daily. 0.4 ml enoxaparin sodium 100 [...] dose, Starting on Thu04/05/24 at 1656, Until Tu04/05/24 at 1655, Imaging Protocol Orders glucagon (rdna) [...] once 0.5 mg, IntraVENous, Once, O n 8/14/24 at 0050, For 1 dose, If oral [...] Infection midodrine hydrochloride 5 mg oral tablet (18 sources) alpha-Adrenerg ic Agonist Start: 04-22-2025 End: [...] Nightly, First dose on 04/22/25 at 2100 Start: 05-18-2024 End: 05-22-2024 take 7.5 mg by mouth once daily 7.5 mg, Oral, Nightly, First dose on Thu05/18/24 at 2100 Start: 05-05-2024 End: 05-06-2024 take 7.5 mg by mouth once daily 7.5 mg, Oral, Nightly, First dose on Fabiola 05/05/24 at 2100 Start: 04-14-2024 End: 04-20-2024 Start: [...] for gram positive cocci polyethylene glycol 3350 52486 mg powder for oral solution (20 sources) [...] discharge) Start: 01-24-2022 take 1 tablet by [facility] once daily potassium chloride ER (K-DUR, KLOR-CON) 20 mEq tablet Take 1 tablet by mouth once daily. 01/24/2022 Active Comment on above: Take 1 tablet by [facility] once daily. SITagliptin 100 mg oral tablet (3 sources) Dipeptidyl Peptidase 4 Inhibitor Start: 2 take 1 tablet by mouth once daily SITagliptin (JANUVIA) 100 mg tablet Take 1 tablet by mouth once daily. 0 12/18/2021 Active Comment on above: Take 1 tablet by [facility] once daily. 10 ml sodium bicarbonate 84 mg/ml injection (2 sources) Start: 4 End: 4 5 ml sodium chloride 9 mg/ml injection (20 sources) Start: 5 End: 5 10 mL, IntraVENous, Every 12 hours scheduled (2 times per day), First dose on 04/24/25 at 0900, Recovery (only) Start: 04-22-2025 End: [...] unspecified; Translations: [MK (acute kidney injury)] Onset: Episodic Anxiety disorders (20 sources) Anxiety; Translations: [Anxiety disorder, unspecified] Onset: 7 01-06-2017 Chronic Bacterial infection; unspecified site (20 sources) Bacteremia due to Methicillin resistant Staphylococcus aureus; Translations: [Bacteremia] Onset: 2 01-04-2022 Episodic Calculus of urinary tract (20 sources) Ureteric stone; Translations: [Calculus of ureter] Onset: 2 12-17-2021 Episodic Chronic ulcer of skin (20 sources) Pressure [...] fracture] Onset: 4 08-22-2024 Chronic Other aftercare (5 sources) Long-term current use of antibiotic; Translations: [FCI (current) use of antibiotics] Onset: 5 02-17-2025 Episodic Other aftercare (2 sources) Other fci (current) drug therapy; Translations: [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] Onset: 5 Episodic Other [...] sinusitis; Translations: [Acute sinusitis, unspecified] Episodic Paralysis (20 sources) Paraplegia; Translations: [Paraplegia, unspecified] Onset: 4 02-10-2024 Chronic Residual codes; unclassified (3 sources) Altered mental status; Translations: [Altered mental status, unspecified] Onset: 5 02-17-2025 Episodic Residual codes; unclassified (1 source) Altered mental status, unspecified; Translations: [Altered mental status, unspecified altered mental status type] Onset: 5 Episodic Septicemia (except in labor) (20 sources) Septic shock; Translations: [Sepsis, unspecified organism] Onset: 4 04-14-2024 Episodic Shock (1 source) Severe sepsis with [...] abscess] Onset: 01-16-2021 Resolved: 08-21-2021 08-21-2021 Episodic Diabetes mellitus without complication (20 sources) [...] of insulin (HCC)] Onset: 01-04-2022 Episodic 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 infection and poliomyelitis (8 sources) Epidural abscess; [...] [Chronic indwelling Santana catheter] Onset: 04-28-2023 Episodic Sprains and strains (20 sources) Sprain of hip; Translations: [Unspecified sprain of unspecified hip, initial encounter] Onset: 01-06-2017 01-06-2017 Episodic Unclassified (1 source) Encounter for other preprocedural examination; Translations: [Encounter for other preprocedural examination] Onset: 08-03-2017 Unclassified (5 sources) NO SHOW Onset: 08-31-2013 Resolved: 05-29-2020 05-29-2020 Results Test Name Value Interpretation Reference Range Facility Basic Metabolic Profile (BMP )on 07-27-2025 BUN Normal - [facility] Comment on above: Order Comment: 301.2 Result Comment: UTO X1 Performed By: #### L 101.9900, L100.0500, L500.4050, L501.6710 #### [facility] [address] [place], [address] BUN/CRE Normal - [facility] Comment on above: Order Comment: 301.2 Result Comment: UTO X1 Performed By: #### L 101.9900, L100.0500, L500.4050, L501.6710 #### [facility] [address] [place], [address] Calcium Normal 7.6-11.0 [facility] Comment on above: Order Comment: 301.2 Result Comment: UTO X1 Performed By: #### L 101.9900, L100.0500, L500.4050, L501.6710 #### [facility] [address] [place], [address] CL Normal 98-108 [facility] Comment on above: Order Comment: 301.2 Result Comment: UTO X1 Performed By: #### L 101.9900, L100.0500, L500.4050, L501.6710 #### [facility] [address] [place], [address] CO2 Normal 21.0-32.0 [facility] Comment on above: Order Comment: 301.2 Result Comment: UTO X1 Performed By: #### L 101.9900, L100.0500, L500.4050, L501.6710 #### [facility] [address] [place], [address] CREAT,SERUM Normal 0.70-1.20 [facility] Comment on above: Order Comment: 301.2 Result Comment: UTO X1 Performed By: #### L 101.9900, L100.0500, L500.4050, L501.6710 #### [facility] [address] [place], [address] eGFR Normal >60 [facility] Comment on above: Order Comment: 301.2 Result Comment: UTO X1 Performed By: #### L 101.9900, L100.0500, L500.4050, L501.6710 #### [facility] [address] [place], [address] GAP Normal 5-15 [facility] Comment on above: Order Comment: 301.2 Result Comment: UTO X1 Performed By: #### L 101.9900, L100.0500, L500.4050, L501.6710 #### [facility] [address] [place], [address] GLU Normal 70-99 [facility] Comment on above: Order Comment: 301.2 Result Comment: UTO X1 Performed By: #### L 101.9900, L100.0500, L500.4050, L501.6710 #### [facility] [address] [place], [address] Potassium Normal 3.3-5.1 [facility] Comment on above: Order Comment: 301.2 Result Comment: UTO X1 Performed By: #### L 101.9900, L100.0500, L500.4050, L501.6710 #### [facility] [address] [place], [address] Basic Metabolic Profile (BMP) Normal 133-145 [facility] Comment on above: Order Comment: 301.2 Result Comment: UTO X1 Performed By: #### L 101.9900, L100.0500, L500.4050, L501.6710 #### [facility] [address] [place], [address] CBC-Complete Blood Cnt No Di ffon 07-27-2025 HCT Normal 40-54 [facility] Comment on above: Order Comment: 301.2 Result Comment: UTO X1 Performed By: #### L 101.9900, L100.0500, L500.4050, L501.6710 #### [facility] [address] [place], [address] HGB Normal 13.0-16.5 [facility] Comment on above: Order Comment: 301.2 Result Comment: UTO X1 Performed By: #### L 101.9900, L100.0500, L500.4050, L501.6710 #### [facility] [address] [place], [address] MCH Normal 27.0-32.0 [facility] Comment on above: Order Comment: 301.2 Result Comment: UTO X1 Performed By: #### L 101.9900, L100.0500, L500.4050, L501.6710 #### [facility] [address] [place], [address] MCHC Normal 32-36 [facility] Comment on above: Order Comment: 301.2 Result Comment: UTO X1 Performed By: #### L 101.9900, L100.0500, L500.4050, L501.6710 #### [facility] [address] [place], [address] MCV Normal 80-94 [facility] Comment on above: Order Comment: 301.2 Result Comment: UTO X1 Performed By: #### L 101.9900, L100.0500, L500.4050, L501.6710 #### [facility] [address] [place], [address] PLT Normal 150-450 [facility] Comment on above: Order Comment: 301.2 Result Comment: UTO X1 Performed By: #### L 101.9900, L100.0500, L500.4050, L501.6710 #### [facility] [address] [place], [address] RBC Normal 4.6-6.2 [facility] Comment on above: Order Comment: 301.2 Result Comment: UTO X1 Performed By: #### L 101.9900, L100.0500, L500.4050, L501.6710 #### [facility] [address] [place], [address] RDW CV Normal 11.6-14.6 [facility] Comment on above: Order Comment: 301.2 Result Comment: UTO X1 Performed By: #### L 101.9900, L100.0500, L500.4050, L501.6710 #### [facility] [address] [place], [address] RDW SD Normal 35.1-43.9 [facility] Comment on above: Order Comment: 301.2 Result Comment: UTO X1 Performed By: #### L 101.9900, L100.0500, L500.4050, L501.6710 #### [facility] [address] [place], [address] WBC Normal 4.4-11.0 [facility] Comment on above: Order Comment: 301.2 Result Comment: UTO X1 Performed By: #### L 101.9900, L100.0500, L500.4050, L501.6710 #### [facility] [address] [place], [address] Urine Cultureon 07-20-2025 [facility] Urine Culture Urine Culture Morganella morganii sp sibonii [place] Count 80,000-100,000 Morganella morganii sp sibonii: REACTION Ampicillin Islt HARINDER >=32 Ampicillin+Sulbac Islt HARINDER <=2 S Ciprofloxacin Islt HARINDER 2 R Gentamicin Islt HARINDER >=16 R levoFLOXacin Islt HARINDER 2 R Meropenem Islt HARINDER <=0.25 S Nitrofurantoin Islt HARINDER R Pip+Tazo Islt HARINDER <=4 S TMP SMX Islt HARINDER <=20 S Normal [facility] Comment on above: Performed By: #### L 101.9900, L100.0500, L500.4050, L501.6710 #### [facility] [address] [place], [address] Urinalysis, Completeon 07-18 BACTERIA RARE Normal None Seen [facility] Comment on above: Order Comment: 301.2 Performed By: #### L 101.9900, L100.0500, L500.4050, L501.6710 #### [facility] [address] [place], [address] RBC 0-5 SEEN Normal 0-5 [facility] Comment on above: Order Comment: 301.2 Performed By: #### L 101.9900, L100.0500, L500.4050, L501.6710 #### [facility] [address] [place], [address] WBC 5-10 SEEN Normal 0-5 [facility] Comment on above: Order Comment: 301.2 Performed By: #### L 101.9900, L100.0500, L500.4050, L501.6710 #### [facility] [address] [place], [address] EPI,SQUAMOUS 0 SEEN Normal 0-5 [facility] Comment on above: Order Comment: 301.2 Performed By: #### L 101.9900, L100.0500, L500.4050, L501.6710 #### [facility] [address] [place], [address] Mucus Ql (Urine sed) 0 SEEN Normal [facility] Comment on above: Order Comment: 301.2 Performed By: #### L 101.9900, L100.0500, L500.4050, L501.6710 #### [facility] [address] [place], [address] 36on 06-02-2025 36 Pt seen in the offic e for EOT appt. Per austyn Meyer to honor stop date and pull PICC after last dose. While in office, changed PICC line dressing as it was never changed since insertion on 05/20. Also changed enclave as this was also never changed and red Luer lock was removed from PICC line as it should never be placed on PICC line only on IV tubing. Called facility [facility] and spoke to nurse Valerie notifying her to honor stop date, pull PICC after last dose. Changed PICC line dressing in office as this was never done since insertion and they are to ensure they don't place red Luer lock on PICC line ever again as those are not meant for the PICC line, only the IV tubing. She stated understanding. Normal [facility] Office Visiton 06-02-2025 Follow-up visit [id number] Anmol Reynolds 1960 M Date Provider Department Center 06/02/2025 [id number] DELU[facility] ID None No family history on file Level of Service:36054 RI OFFICE/OUTPATIENT ESTABLISHED MOD MDM 30 MIN Reason for Visit and Comments: Follow-up [300394] - EOT/MRSA, Lt ischaial osteo Normal [facility] Progress Noteon 06-02-2025 Progress Note [facility] INFECTIOUS DIS [address] [place] [address] Post-Discharge Hospital Follow Up Date of Hospital Admission: 04/21/25 Date of Hospital Discharge: 04/28/25 Readmission Risk Score: Predictive Model Details 20% Factor Value Risk of Hospital Admission or ED Visit Model 37% Is in Relationship Yes 28% Number of ED Visits 2 13% Number of Hospitalizations 2 6% Has Anemia Yes 5% Has Medicare Yes 5% Has Depression Yes 5% Has Diabetes Yes 1% Has PCP Yes ASSESSMENT/PLAN 1. Pressure injury of coccygeal region, stage 3 (HCC) 2. Other acute osteomyelitis, other site (HCC) 3. MRSA (methicillin resistant Staphylococcus aureus) infection 4. Encounter for long-term (current) use of antibiotics 5. Paraplegia (HCC) Overall healing well- continue antibiotics to 06/06 as previously outlined. OK to pull pICC afterwards and no additional po tail necessary. Continue VAC dressing, defer to Surgery duration necessary. Recommend follow up with [facility] Surgery- Dr. Kaela Durand who performed I+D on 04/24 and bone biopsy. Follow up if symptoms worsen or fail to improve. Medical Decision Making moderate Follow up if symptoms worsen or fail to improve. Savage Castillo MD 06/02/25 11:07 AM SUBJECTIVE 64 M paraplegic with NGB, and wrosening of decubitus ulcer( L ischium), admitted in April requiring excisional I+D of necrotic ulcer and bone biopsy per Surgery- cx+ E raffinosus and MRSA. Patient dishcarged back to F with IV Vancomycin and Unasyn per ID to complete 6 weeks course to 06/06. Here for EOT visit. No new issues since discharge, still on wound VAC therapy, and per patient, wound is healing, improved. Denies S/E from antibiotics. NO issues with PICC line. Came in a motorized wheelchair, accompanied by his brother. Inpatient course: Discharge summary reviewed Interval History As above- since discharge, continues on IV antibiotics to 06/06. Still on Wound VAC at [facility]. Overall doing better. I have performed a medication reconciliation during this visit and have reconciled the medications patient is taking as of now against medications ordered at time of hospital discharge. Current Outpatient Medications: ampicillin-sulbactam 3,000 mg in sodium chloride 0.9 % 100 mL IVPB, Infuse 3,000 mg into a venous catheter every 6 hours. stop date of antibiotic is 06/06/2025, Disp: , Rfl: apixaban (Eliquis) 5 MG tablet, Take 5 mg by mouth twice a day., Disp: , Rfl: bisacodyl (Dulcolax) 5 MG EC tablet, Take 5 mg by mouth Daily as needed for constipation. Do not crush, chew, or split., Disp: , Rfl: calcium carbonate (Tums) 500 MG chewable tablet, 1,000 mg every 8 hours as needed for indigestion or heartburn., Disp: , Rfl: cyclobenzaprine (Flexeril) 10 MG tablet, Take 10 mg by mouth 3 times daily as needed for muscle spasms., Disp: , Rfl: DULoxetine (Cymbalta) [address] capsule, Take 30 mg by mouth daily., Disp: , Rfl: ferrous sulfate 325 (65 Fe) MG tablet, Take 325 mg by mouth daily (with breakfast)., Disp: , Rfl: insulin glargine (Lantus) 100 UNIT/ML injection, Inject 28 Units under the skin every morning., Disp: , Rfl: Insulin Lispro (Humalog) 100 UNIT/ML solution injection, Inject 0-18 Units under the skin 3 times daily (with meals). High Dose Correction Algorithm Glucose: Dose: LESS than 150 No Insulin 150-199 3 Units 200-249 6 Units 250-299 9 Units 300-349 12 Units 350-400 15 Units Above 400 18 Units, Disp: , Rfl: Insulin Lispro (Humalog) 100 UNIT/ML solution injection, Inject 0-18 Units under the skin Nightly. If eating or bolus tube feeding: High Dose Correction Algorithm Glucose: Dose: LESS than 150 No Insulin 150-199 3 Units 200-249 6 Units 250-299 9 Units 300-349 12 Units 350-400 15 Units Above 400 18 Units, Disp: , Rfl: linaGLIPtin (Tradjenta) 5 MG tablet, 5 mg daily., Disp: , Rfl: midodrine (Proamatine) 10 MG tablet, Take 10 mg by mouth 3 times a day., Disp: , Rfl: mirtazapine (Remeron) 7.5 MG tablet, Take 7.5 mg by mouth Nightly., Disp: , Rfl: Multiple Vitamin (multivitamin) capsule, Take 1 capsule by mouth daily., Disp: , Rfl: naloxone (Narcan) 4 MG/0.1ML nasal spray, Administer 1 spray (4 mg) into affected nostril(s) as needed for opioid reversal. May repeat every 2-3 minutes if needed, alternating nostrils, until medical assistance becomes available., Disp: , Rfl: oxyCODONE (Roxicodone) 15 MG immediate release tablet, Take 1 tablet (15 mg) by mouth 4 times daily., Disp: 12 tablet, Rfl: 0 polyethylene glycol, PEG, 3350 (Miralax) 17 g packet, Take 17 g by mouth in the morning and 17 g in the evening., Disp: , Rfl: pregabalin (Lyrica) 200 MG capsule, Take 1 capsule (200 mg) by mouth 3 times daily., Disp: , Rfl: senna-docusate (Cheyenne-Colace) 8.6-50 MG tablet, Take 2 tablets by mouth twice a day., Disp: , Rfl: tamsulosin (Flomax) 0.4 MG 24 hr capsule, Take 1 capsule (0.4 mg) by mouth daily., Disp: , R (more content not included)... Normal [facility] CBC-Complete Blood Cnt No Di ffon 05-29-2025 Erythrocyte distribution width (RBC) [Ratio] 15.7 % High 11.6-14.6 [facility] Comment on above: Order Comment: 301.2 0000 Performed By: #### L 501.6710, L101.9900, L501.8820 #### [facility] [address] [place], [place], [address] Hematocrit (Bld) [Volume fraction] 36.8 % Low 40-54 [facility] Comment on above: Order Comment: 301.2 0000 Performed By: #### L 501.6710, L101.9900, L501.8820 #### [facility] [address] [place], [address] Hemoglobin (Bld) [Mass/Vol] 12.1 g/dL Low 13.0-16.5 [facility] Comment on above: Order Comment: 301.2 0000 Performed By: #### L 501.6710, L101.9900, L501.8820 #### [facility] [address] [place], [address] MCH (RBC) [Entitic mass] 30.0 pg Normal 27.0-32.0 [facility] Comment on above: Order Comment: 301.2 0000 Performed By: #### L 501.6710, L101.9900, L501.8820 #### [facility] [address] [place], [address] MCHC (RBC) [Mass/Vol] 32.9 g/dL Normal 32-36 [facility] Comment on above: Order Comment: 301.2 0000 Performed By: #### L 501.6710, L101.9900, L501.8820 #### [facility] [address] [place], [address] MCV (RBC) [Entitic vol] 91.1 fL Normal 80-94 [facility] Comment on above: Order Comment: 301.2 0000 Performed By: #### L 501.6710, L101.9900, L501.8820 #### [facility] [address] [place], [address] Platelet mean volume (Bld) [Entitic vol] 10.6 fL Normal 6.2-12.0 [facility] Comment on above: Order Comment: 301.2 0000 Performed By: #### L 501.6710, L101.9900, L501.8820 #### [facility] [address] [place], [address] Platelets (Bld) [#/Vol] 243 10*3/uL Normal 150-450 [facility] Comment on above: Order Comment: 301.2 0000 Performed By: #### L 501.6710, L101.9900, L501.8820 #### [facility] [address] [place], [address] RBC (Bld) [#/Vol] 4.04 10*6/uL Low 4.6-6.2 [facility] Comment on above: Order Comment: 301.2 0000 Performed By: #### L 501.6710, L101.9900, L501.8820 #### [facility] [address] [place], [address] RDW SD 52.5 fl High 35.1-43.9 [facility] Comment on above: Order Comment: 301.2 0000 Performed By: #### L 501.6710, L101.9900, L501.8820 #### [facility] [address] [place], [address] WBC (Bld) [#/Vol] 6.9 10*3/uL Normal 4.4-11.0 [facility] Comment on above: Order Comment: 301.2 0000 Performed By: #### L 501.6710, L101.9900, L501.8820 #### [facility] [address] [place], [address] CRPon 05-29-2025 C-REACTIVE PROT 20.40 mg/L High 0.0-3.0 [facility] Comment on above: Order Comment: 301.2 0000 Performed By: #### L 501.6710, L101.9900, L501.8820 #### [facility] [address] [place], [address] Comprehensive Metabolic Prof ilon 05-29-2025 Albumin [Mass/Vol] 3.2 g/dL Low 3.4-4.8 [facility] Comment on above: Order Comment: 301.2 0000 Performed By: #### L 501.6710, L101.9900, L501.8820 #### [facility] [address] [place], [address] Albumin/Globulin [Mass ratio] 0.9 {ratio} Normal 0.9-2.4 [facility] Comment on above: Order Comment: 301.2 0000 Performed By: #### L 501.6710, L101.9900, L501.8820 #### [facility] [address] [place], [address] ALK PHOS 113 U/L Normal 40-129 [facility] Comment on above: Order Comment: 301.2 0000 Performed By: #### L 501.6710, L101.9900, L501.8820 #### [facility] [address] [place], [address] ALT [Catalytic activity/Vol] 14 U/L Normal <=46 [facility] Comment on above: Order Comment: 301.2 0000 Performed By: #### L 501.6710, L101.9900, [id number] #### [facility] [address] [place], [address] AST [Catalytic activity/Vol] 18 U/L Normal <=37 [facility] Comment on above: Order Comment: 301.2 0000 Performed By: #### L 501.6710, L101.9900, [id number] #### [facility] [address] [place], [address] Bilirubin [Mass/Vol] 0.26 mg/dL Normal 0.00-1.30 [facility] Comment on above: Order Comment: 301.2 0000 Performed By: #### L 501.6710, L101.9900, L501.8820 #### [facility] [address] [place], [address] BUN/CRE 16.4 RATIO Normal 10-20 [facility] Comment on above: Order Comment: 301.2 0000 Performed By: #### L 501.6710, L101.9900, [id number] #### [facility] [address] [place], [address] Calcium [Mass/Vol] 8.9 mg/dL Normal 7.6-11.0 [facility] Comment on above: Order Comment: 301.2 0000 Performed By: #### L 501.6710, L101.9900, L501.8820 #### [facility] [address] [place], [address] Chloride [Moles/Vol] 107 mmol/L Normal 98-108 [facility] Comment on above: Order Comment: 301.2 0000 Performed By: #### L 501.6710, L101.9900, [id number] #### [facility] [address] [place], [address] CO2 [Moles/Vol] 20.8 mmol/L Low 21.0-32.0 [facility] Comment on above: Order Comment: 301.2 0000 Performed By: #### L 501.6710, L101.9900, [id number] #### [facility] [address] [place], [address] Creatinine [Mass/Vol] 0.45 mg/dL Low 0.70-1.20 [facility] Comment on above: Order Comment: 301.2 0000 Performed By: #### L 501.6710, L101.9900, [id number] #### [facility] [address] [place], [address] GAP 12 Normal 5-15 [facility] Comment on above: Order Comment: 301.2 0000 Performed By: #### L 501.6710, L101.9900, L501.8820 #### [facility] [address] [place], [address] GFR/1.73 sq M.predicted among non-blacks MDRD (S/P/Bld) [Vol rate/Area] 119 mL/min/{1.73_m2} Normal >60 [facility] Comment on above: Order Comment: 301.2 0000 Result Comment: mL/m in/1.73m2 CKD-EPI Creatinine Equation (2020) Performed By: #### L 501.6710, L101.9900, L501.8820 #### [facility] [address] [place], [address] Globulin (S) [Mass/Vol] 3.6 g/dL Normal 2.2-4.2 [facility] Comment on above: Order Comment: 301.2 0000 Performed By: #### L 501.6710, L101.9900, L501.8820 #### [facility] [address] [place], [address] Glucose [Mass/Vol] 91 mg/dL Normal 70-99 [facility] Comment on above: Order Comment: 301.2 0000 Performed By: #### L 501.6710, L101.9900, [id number] #### [facility] [address] [place], [address] Potassium [Moles/Vol] 3.6 mmol/L Normal 3.3-5.1 [facility] Comment on above: Order Comment: 301.2 0000 Performed By: #### L 501.6710, L101.9900, L501.8820 #### [facility] [address] [place], [address] Sodium [Moles/Vol] 140 mmol/L Normal 133-145 [facility] Comment on above: Order Comment: 301.2 0000 Performed By: #### L 501.6710, L101.9900, [id number] #### [facility] [address] [place], [address] T PROT 6.8 g/dL Normal 5.9-8.4 [facility] Comment on above: Order Comment: 301.2 0000 Performed By: #### L 501.6710, L101.9900, [id number] #### [facility] [address] [place], [place], [address] Urea nitrogen [Mass/Vol] 7 mg/dL Normal 4-19 [facility] Comment on above: Order Comment: 301.2 0000 Performed By: #### L 501.6710, L101.9900, [id number] #### [facility] [address] [place], [address] Vancomycin, Trough Levelon 0 05-29-2025 VANCO, TROUGH 18.5 ug/mL High 5.0-15.0 [facility] Comment on above: Order Comment: 301.2 0000 Result Comment: Jp mmended goal trough ranges [...] (Ventilator/Healtcare Associated) -Sepsis PLEASE CONTACT PHARMACY SERVICES (#[id number]) FOR INTERPRETATION OF RESULTS. Performed By: #### L 501.6710, L101.9900, L501.8820 #### [facility] [address] [place], [place], [address] 36on 05-25-2025 36 Received a call from nurse Nikki [phone] stating Vanc tr this week is 17 and asking if IV Vanc can be hung. Told her yes, hang Vanc as trough is within therapeutic range. Per Nikki, they will obtain another Vanc level on 05/29. Normal [facility] CRPon 05-25-2025 C-REACTIVE PROT 48.60 mg/L High 0.0-3.0 [facility] Comment on above: Order Comment: 301.2 Performed By: #### L 501.6710, L101.9900, L501.8820 #### [facility] [address] [place], [place], [address] Erythrocyte Sed Rateon 05-25 SED RATE 57 mm/hr High 0-20 [facility] Comment on above: Order Comment: 301.2 Performed By: #### L 501.6710, L101.9900, L501.8820 #### [facility] [address] [place], [address] Vancomycin, Trough Levelon 0 05-25-2025 VANCO, TROUGH 17.3 ug/mL High 5.0-15.0 [facility] Comment on above: Order Comment: 301.2 0000 Result Comment: Jp mmended goal trough ranges [...] (Ventilator/Healtcare Associated) -Sepsis PLEASE CONTACT PHARMACY SERVICES (#[id number]) FOR INTERPRETATION OF RESULTS. Performed By: #### L 501.6710, L101.9900, L501.8820 #### [facility] [address] [place], [place], [address] 36on 05-24-2025 36 Received a call from Clement stoner at [facility]. She stated the labs that were supposed [...] until this weeks labs are received. Normal [facility] CBC-Complete Blood Cnt No Di ffon 05-22-2025 Erythrocyte distribution width (RBC) [Ratio] 16.3 % High 11.6-14.6 [facility] Comment on above: Order Comment: 301.2 Performed By: #### L 101.9900, L100.0500, L500.4050, L501.6710 #### [facility] [address] [place], [address] Hematocrit (Bld) [Volume fraction] 38.6 % Low 40-54 [facility] Comment on above: Order Comment: 301.2 Performed By: #### L 101.9900, L100.0500, L500.4050, L501.6710 #### [facility] [address] [place], [address] Hemoglobin (Bld) [Mass/Vol] 12.2 g/dL Low 13.0-16.5 [facility] Comment on above: Order Comment: 301.2 Performed By: #### L 101.9900, L100.0500, L500.4050, L501.6710 #### [facility] [address] [place], [address] MCH (RBC) [Entitic mass] 29.1 pg Normal 27.0-32.0 [facility] Comment on above: Order Comment: 301.2 Performed By: #### L 101.9900, L100.0500, L500.4050, L501.6710 #### [facility] [address] [place], [address] MCHC (RBC) [Mass/Vol] 31.6 g/dL Low 32-36 [facility] Comment on above: Order Comment: 301.2 Performed By: #### L 101.9900, L100.0500, L500.4050, L501.6710 #### [facility] [address] [place], [address] MCV (RBC) [Entitic vol] 92.1 fL Normal 80-94 [facility] Comment on above: Order Comment: 301.2 Performed By: #### L 101.9900, L100.0500, L500.4050, L501.6710 #### [facility] [address] [place], [address] Platelet mean volume (Bld) [Entitic vol] 11.1 fL Normal 6.2-12.0 [facility] Comment on above: Order Comment: 301.2 Performed By: #### L 101.9900, L100.0500, L500.4050, L501.6710 #### [facility] [address] [place], [address] Platelets (Bld) [#/Vol] 226 10*3/uL Normal 150-450 [facility] Comment on above: Order Comment: 301.2 Performed By: #### L 101.9900, L100.0500, L500.4050, L501.6710 #### [facility] [address] [place], [address] RBC (Bld) [#/Vol] 4.19 10*6/uL Low 4.6-6.2 [facility] Comment on above: Order Comment: 301.2 Performed By: #### L 101.9900, L100.0500, L500.4050, L501.6710 #### [facility] [address] [place], [address] RDW SD 55.2 fl High 35.1-43.9 [facility] Comment on above: Order Comment: 301.2 Performed By: #### L 101.9900, L100.0500, L500.4050, L501.6710 #### [facility] [address] [place], [address] WBC (Bld) [#/Vol] 7.5 10*3/uL Normal 4.4-11.0 [facility] Comment on above: Order Comment: 301.2 Performed By: #### L 101.9900, L100.0500, L500.4050, L501.6710 #### [facility] [address] [place], [address] Comprehensive Metabolic Prof [facility] 05-22-2025 Albumin [Mass/Vol] 3.1 g/dL Low 3.4-4.8 [facility] Comment on above: Order Comment: 301.2 Performed By: #### L 101.9900, L100.0500, L500.4050, L501.6710 #### [facility] [address] [place], [address] Albumin/Globulin [Mass ratio] 0.9 {ratio} Normal 0.9-2.4 [facility] Comment on above: Order Comment: 301.2 Performed By: #### L 101.9900, L100.0500, L500.4050, L501.6710 #### [facility] [address] [place], [address] ALK PHOS 124 U/L Normal 40-129 [facility] Comment on above: Order Comment: 301.2 Performed By: #### L 101.9900, L100.0500, L500.4050, L501.6710 #### [facility] [address] [place], [address] ALT [Catalytic activity/Vol] 15 U/L Normal <=46 [facility] Comment on above: Order Comment: 301.2 Performed By: #### L 101.9900, L100.0500, L500.4050, L501.6710 #### [facility] [address] [place], [address] AST [Catalytic activity/Vol] 17 U/L Normal <=37 [facility] Comment on above: Order Comment: 301.2 Performed By: #### L 101.9900, L100.0500, L500.4050, L501.6710 #### [facility] [address] [place], [address] Bilirubin [Mass/Vol] 0.31 mg/dL Normal 0.00-1.30 [facility] Comment on above: Order Comment: 301.2 Performed By: #### L 101.9900, L100.0500, L500.4050, L501.6710 #### [facility] [address] [place], [address] BUN/CRE 15.9 RATIO Normal 10-20 [facility] Comment on above: Order Comment: 301.2 Performed By: #### L 101.9900, L100.0500, L500.4050, L501.6710 #### [facility] [address] [place], [address] Calcium [Mass/Vol] 8.7 mg/dL Normal 7.6-11.0 [facility] Comment on above: Order Comment: 301.2 Performed By: #### L 101.9900, L100.0500, L500.4050, L501.6710 #### [facility] [address] [place], [address] Chloride [Moles/Vol] 106 mmol/L Normal 98-108 [facility] Comment on above: Order Comment: 301.2 Performed By: #### L 101.9900, L100.0500, L500.4050, L501.6710 #### [facility] [address] [place], [address] CO2 [Moles/Vol] 20.9 mmol/L Low 21.0-32.0 [facility] Comment on above: Order Comment: 301.2 Performed By: #### L 101.9900, L100.0500, L500.4050, L501.6710 #### [facility] [address] [place], [address] Creatinine [Mass/Vol] 0.50 mg/dL Low 0.70-1.20 [facility] Comment on above: Order Comment: 301.2 Performed By: #### L 101.9900, L100.0500, L500.4050, L501.6710 #### [facility] [address] [place], [address] GAP 12 Normal 5-15 [facility] Comment on above: Order Comment: 301.2 Performed By: #### L 101.9900, L100.0500, L500.4050, L501.6710 #### [facility] [address] [place], [address] GFR/1.73 sq M.predicted among non-blacks MDRD (S/P/Bld) [Vol rate/Area] 114 mL/min/{1.73_m2} Normal >60 [facility] Comment on above: Order Comment: 301.2 Result Comment: mL/m in/1.73m2 CKD-EPI Creatinine Equation (2020) Performed By: #### L 101.9900, L100.0500, L500.4050, L501.6710 #### [facility] [address] [place], [address] Globulin (S) [Mass/Vol] 3.6 g/dL Normal 2.2-4.2 [facility] Comment on above: Order Comment: 301.2 Performed By: #### L 101.9900, L100.0500, L500.4050, L501.6710 #### [facility] [address] [place], [address] Glucose [Mass/Vol] 109 mg/dL High 70-99 [facility] Comment on above: Order Comment: 301.2 Performed By: #### L 101.9900, L100.0500, L500.4050, L501.6710 #### [facility] [address] [place], [address] Potassium [Moles/Vol] 3.8 mmol/L Normal 3.3-5.1 [facility] Comment on above: Order Comment: 301.2 Performed By: #### L 101.9900, L100.0500, L500.4050, L501.6710 #### [facility] [address] [place], [address] Sodium [Moles/Vol] 139 mmol/L Normal 133-145 [facility] Comment on above: Order Comment: 301.2 Performed By: #### L 101.9900, L100.0500, L500.4050, L501.6710 #### [facility] [address] [place], [address] T PROT 6.7 g/dL Normal 5.9-8.4 [facility] Comment on above: Order Comment: 301.2 Performed By: #### L 101.9900, L100.0500, L500.4050, L501.6710 #### [facility] [address] [place], [address] Urea nitrogen [Mass/Vol] 8 mg/dL Normal 4-19 [facility] Comment on above: Order Comment: 301.2 Performed By: #### L 101.9900, L100.0500, L500.4050, L501.6710 #### [facility] [address] [place], [address] CBC-Complete Blood Cnt No Di ffon 05-15-2025 Erythrocyte distribution width (RBC) [Ratio] 16.4 % High 11.6-14.6 [facility] Comment on above: Order Comment: 301.2 0000 Performed By: #### L 501.6710, L101.9900, L501.8820 #### [facility] [address] [place], [address] Hematocrit (Bld) [Volume fraction] 39.5 % Low 40-54 [facility] Comment on above: Order Comment: 301.2 0000 Performed By: #### L 501.6710, L101.9900, L501.8820 #### [facility] [address] [place], [address] Hemoglobin (Bld) [Mass/Vol] 12.6 g/dL Low 13.0-16.5 [facility] Comment on above: Order Comment: 301.2 0000 Performed By: #### L 501.6710, L101.9900, L501.8820 #### [facility] [address] [place], [address] MCH (RBC) [Entitic mass] 29.3 pg Normal 27.0-32.0 [facility] Comment on above: Order Comment: 301.2 0000 Performed By: #### L 501.6710, L101.9900, L501.8820 #### [facility] [address] [place], [address] MCHC (RBC) [Mass/Vol] 31.9 g/dL Low 32-36 [facility] Comment on above: Order Comment: 301.2 0000 Performed By: #### L 501.6710, L101.9900, L501.8820 #### [facility] [address] [place], [address] MCV (RBC) [Entitic vol] 91.9 fL Normal 80-94 [facility] Comment on above: Order Comment: 301.2 0000 Performed By: #### L 501.6710, L101.9900, L501.8820 #### [facility] [address] [place], [address] Platelet mean volume (Bld) [Entitic vol] 10.2 fL Normal 6.2-12.0 [facility] Comment on above: Order Comment: 301.2 0000 Performed By: #### L 501.6710, L101.9900, L501.8820 #### [facility] [address] [place], [address] Platelets (Bld) [#/Vol] 201 10*3/uL Normal 150-450 [facility] Comment on above: Order Comment: 301.2 0000 Performed By: #### L 501.6710, L101.9900, L501.8820 #### [facility] [address] [place], [address] RBC (Bld) [#/Vol] 4.30 10*6/uL Low 4.6-6.2 [facility] Comment on above: Order Comment: 301.2 0000 Performed By: #### L 501.6710, L101.9900, L501.8820 #### [facility] [address] [place], [address] RDW SD 54.9 fl High 35.1-43.9 [facility] Comment on above: Order Comment: 301.2 0000 Performed By: #### L 501.6710, L101.9900, L501.8820 #### [facility] [address] [place], [address] WBC (Bld) [#/Vol] 5.5 10*3/uL Normal 4.4-11.0 [facility] Comment on above: Order Comment: 301.2 0000 Performed By: #### L 501.6710, L101.9900, L501.8820 #### [facility] [address] [place], [address] Comprehensive Metabolic Prof ilon 05-15-2025 Albumin [Mass/Vol] 3.4 g/dL Normal 3.4-4.8 [facility] Comment on above: Order Comment: 301.2 0000 Performed By: #### L 501.6710, L101.9900, L501.8820 #### [facility] [address] [place], [address] Albumin/Globulin [Mass ratio] 0.9 {ratio} Normal 0.9-2.4 [facility] Comment on above: Order Comment: 301.2 0000 Performed By: #### L 501.6710, L101.9900, L501.8820 #### [facility] [address] [place], [address] ALK PHOS 133 U/L High 40-129 [facility] Comment on above: Order Comment: 301.2 0000 Performed By: #### L 501.6710, L101.9900, L501.8820 #### [facility] [address] [place], [address] ALT [Catalytic activity/Vol] 20 U/L Normal <=46 [facility] Comment on above: Order Comment: 301.2 0000 Performed By: #### L 501.6710, L101.9900, L501.8820 #### [facility] [address] [place], [address] AST [Catalytic activity/Vol] 28 U/L Normal <=37 [facility] Comment on above: Order Comment: 301.2 0000 Performed By: #### L 501.6710, L101.9900, L501.8820 #### [facility] [address] [place], [address] Bilirubin [Mass/Vol] 0.43 mg/dL Normal 0.00-1.30 [facility] Comment on above: Order Comment: 301.2 0000 Performed By: #### L 501.6710, L101.9900, L501.8820 #### [facility] [address] [place], [address] BUN/CRE 17.5 RATIO Normal 10-20 [facility] Comment on above: Order Comment: 301.2 0000 Performed By: #### L 501.6710, L101.9900, L501.8820 #### [facility] [address] [place], [address] Calcium [Mass/Vol] 8.9 mg/dL Normal 7.6-11.0 [facility] Comment on above: Order Comment: 301.2 0000 Performed By: #### L 501.6710, L101.9900, L501.8820 #### [facility] [address] [place], [address] Chloride [Moles/Vol] 106 mmol/L Normal 98-108 [facility] Comment on above: Order Comment: 301.2 0000 Performed By: #### L 501.6710, L101.9900, L501.8820 #### [facility] [address] [place], [address] CO2 [Moles/Vol] 21.6 mmol/L Normal 21.0-32.0 [facility] Comment on above: Order Comment: 301.2 0000 Performed By: #### L 501.6710, L101.9900, L501.8820 #### [facility] [address] [place], [address] Creatinine [Mass/Vol] 0.52 mg/dL Low 0.70-1.20 [facility] Comment on above: Order Comment: 301.2 0000 Performed By: #### L 501.6710, L101.9900, L501.8820 #### [facility] [address] [place], [address] GAP 12 Normal 5-15 [facility] Comment on above: Order Comment: 301.2 0000 Performed By: #### L 501.6710, L101.9900, L501.8820 #### [facility] [address] [place], [address] GFR/1.73 sq M.predicted among non-blacks MDRD (S/P/Bld) [Vol rate/Area] 113 mL/min/{1.73_m2} Normal >60 [facility] Comment on above: Order Comment: 301.2 0000 Result Comment: mL/m in/1.73m2 CKD-EPI Creatinine Equation (2020) Performed By: #### L 501.6710, L101.9900, L501.8820 #### [facility] [address] [place], [address] Globulin (S) [Mass/Vol] 3.6 g/dL Normal 2.2-4.2 [facility] Comment on above: Order Comment: 301.2 0000 Performed By: #### L 501.6710, L101.9900, L501.8820 #### [facility] [address] [place], [address] Glucose [Mass/Vol] 76 mg/dL Normal 70-99 [facility] Comment on above: Order Comment: 301.2 0000 Performed By: #### L 501.6710, L101.9900, L501.8820 #### [facility] [address] [place], [address] Potassium [Moles/Vol] 3.6 mmol/L Normal 3.3-5.1 [facility] Comment on above: Order Comment: 301.2 0000 Performed By: #### L 501.6710, L101.9900, L501.8820 #### [facility] [address] [place], [address] Sodium [Moles/Vol] 139 mmol/L Normal 133-145 [facility] Comment on above: Order Comment: 301.2 0000 Performed By: #### L 501.6710, L101.9900, L501.8820 #### [facility] [address] [place], [address] T PROT 7.0 g/dL Normal 5.9-8.4 [facility] Comment on above: Order Comment: 301.2 0000 Performed By: #### L 501.6710, L101.9900, L501.8820 #### [facility] [address] [place], [address] Urea nitrogen [Mass/Vol] 9 mg/dL Normal 4-19 [facility] Comment on above: Order Comment: 301.2 0000 Performed By: #### L 501.6710, L101.9900, L501.8820 #### [facility] [address] [place], [address] Vancomycin, Trough Levelon 0 05-15-2025 VANCO, TROUGH 17.6 ug/mL High 5.0-15.0 [facility] Comment on above: Order Comment: 301.2 [...] (Ventilator/Healtcare Associated) -Sepsis PLEASE CONTACT PHARMACY SERVICES (#[id number]) FOR INTERPRETATION OF RESULTS. Performed By: #### L 501.6710, L101.9900, L501.8820 #### [facility] [address] [place], [address] 36on 05-12-[address] Castillo, Please see labs received today. Patients sed rate is 64. Down from 78 on 04/21/25. C-reactive protein is 32.80. Please let us know if there is any changes to orders. Thank you. Normal [facility] Vancomycin, Trough Levelon 0 05-11-2025 VANCO, TROUGH 16.8 ug/mL High 5.0-15.0 [facility] Comment on above: Order Comment: 301.2 [...] (Ventilator/Healtcare Associated) -Sepsis PLEASE CONTACT PHARMACY SERVICES (#[id number]) FOR INTERPRETATION OF RESULTS. Performed By: #### L 101.9900, L100.0500, L500.4050, L501.6710 #### [facility] [address] [place], [place], [address] 36on 05-10-2025 36 Received a call from Clement nurse at [facility]. She stated that she wanted to clarify how often labs are needed on patient. She stated that all labs except vanc trough were drawn yesterday. She will fax those results. The vanc trough will be drawn tomorrow and will will be faxed to office. Normal [facility] CBC-Complete Blood Cnt No Di ffon 05-09-2025 Erythrocyte distribution width (RBC) [Ratio] 15.9 % High 11.6-14.6 [facility] Comment on above: Order Comment: 301.2 Performed By: #### L 101.9900, L100.0500, L500.4050, L501.6710 #### [facility] [address] [place], [place], [address] Hematocrit (Bld) [Volume fraction] 36.0 % Low 40-54 [facility] Comment on above: Order Comment: 301.2 Performed By: #### L 101.9900, L100.0500, L500.4050, L501.6710 #### [facility] [address] [place], [address] Hemoglobin (Bld) [Mass/Vol] 11.5 g/dL Low 13.0-16.5 [facility] Comment on above: Order Comment: 301.2 Performed By: #### L 101.9900, L100.0500, L500.4050, L501.6710 #### [facility] [address] [place], [address] MCH (RBC) [Entitic mass] 29.1 pg Normal 27.0-32.0 [facility] Comment on above: Order Comment: 301.2 Performed By: #### L 101.9900, L100.0500, L500.4050, L501.6710 #### [facility] [address] [place], [address] MCHC (RBC) [Mass/Vol] 31.9 g/dL Low 32-36 [facility] Comment on above: Order Comment: 301.2 Performed By: #### L 101.9900, L100.0500, L500.4050, L501.6710 #### [facility] [address] [place], [address] MCV (RBC) [Entitic vol] 91.1 fL Normal 80-94 [facility] Comment on above: Order Comment: 301.2 Performed By: #### L 101.9900, L100.0500, L500.4050, L501.6710 #### [facility] [address] [place], [address] Platelet mean volume (Bld) [Entitic vol] 10.3 fL Normal 6.2-12.0 [facility] Comment on above: Order Comment: 301.2 Performed By: #### L 101.9900, L100.0500, L500.4050, L501.6710 #### [facility] [address] [place], [address] Platelets (Bld) [#/Vol] 285 10*3/uL Normal 150-450 [facility] Comment on above: Order Comment: 301.2 Performed By: #### L 101.9900, L100.0500, L500.4050, L501.6710 #### [facility] [address] [place], [address] RBC (Bld) [#/Vol] 3.95 10*6/uL Low 4.6-6.2 [facility] Comment on above: Order Comment: 301.2 Performed By: #### L 101.9900, L100.0500, L500.4050, L501.6710 #### [facility] [address] [place], [address] RDW SD 53.3 fl High 35.1-43.9 [facility] Comment on above: Order Comment: 301.2 Performed By: #### L 101.9900, L100.0500, L500.4050, L501.6710 #### [facility] [address] [place], [address] WBC (Bld) [#/Vol] 5.7 10*3/uL Normal 4.4-11.0 [facility] Comment on above: Order Comment: 301.2 Performed By: #### L 101.9900, L100.0500, L500.4050, L501.6710 #### [facility] [address] [place], [address] CRPon 05-09-2025 C-REACTIVE PROT 32.80 mg/L High 0.0-3.0 [facility] Comment on above: Order Comment: 301.2 Performed By: #### L 101.9900, L100.0500, L500.4050, L501.6710 #### [facility] [address] [place], [address] Comprehensive Metabolic Prof ilon 05-09-2025 Albumin [Mass/Vol] 3.1 g/dL Low 3.4-4.8 [facility] Comment on above: Order Comment: 301.2 Performed By: #### L 101.9900, L100.0500, L500.4050, L501.6710 #### [facility] [address] [place], [address] Albumin/Globulin [Mass ratio] 0.8 {ratio} Low 0.9-2.4 [facility] Comment on above: Order Comment: 301.2 Performed By: #### L 101.9900, L100.0500, L500.4050, L501.6710 #### [facility] [address] [place], [address] ALK PHOS 117 U/L Normal 40-129 [facility] Comment on above: Order Comment: 301.2 Performed By: #### L 101.9900, L100.0500, L500.4050, L501.6710 #### [facility] [address] [place], [address] ALT [Catalytic activity/Vol] 9 U/L Normal <=46 [facility] Comment on above: Order Comment: 301.2 Performed By: #### L 101.9900, L100.0500, L500.4050, L501.6710 #### [facility] [address] [place], [address] AST [Catalytic activity/Vol] 15 U/L Normal <=37 [facility] Comment on above: Order Comment: 301.2 Performed By: #### L 101.9900, L100.0500, L500.4050, L501.6710 #### [facility] [address] [place], [address] Bilirubin [Mass/Vol] 0.28 mg/dL Normal 0.00-1.30 [facility] Comment on above: Order Comment: 301.2 Performed By: #### L 101.9900, L100.0500, L500.4050, L501.6710 #### [facility] [address] [place], [address] BUN/CRE 12.7 RATIO Normal 10-20 [facility] Comment on above: Order Comment: 301.2 Performed By: #### L 101.9900, L100.0500, L500.4050, L501.6710 #### [facility] [address] [place], [address] Calcium [Mass/Vol] 8.8 mg/dL Normal 7.6-11.0 [facility] Comment on above: Order Comment: 301.2 Performed By: #### L 101.9900, L100.0500, L500.4050, L501.6710 #### [facility] [address] [place], [address] Chloride [Moles/Vol] 106 mmol/L Normal 98-108 [facility] Comment on above: Order Comment: 301.2 Performed By: #### L 101.9900, L100.0500, L500.4050, L501.6710 #### [facility] [address] [place], [address] CO2 [Moles/Vol] 19.7 mmol/L Low 21.0-32.0 [facility] Comment on above: Order Comment: 301.2 Performed By: #### L 101.9900, L100.0500, L500.4050, L501.6710 #### [facility] [address] [place], [address] Creatinine [Mass/Vol] 0.49 mg/dL Low 0.70-1.20 [facility] Comment on above: Order Comment: 301.2 Performed By: #### L 101.9900, L100.0500, L500.4050, L501.6710 #### [facility] [address] [place], [address] GAP 12 Normal 5-15 [facility] Comment on above: Order Comment: 301.2 Performed By: #### L 101.9900, L100.0500, L500.4050, L501.6710 #### [facility] [address] [place], [address] GFR/1.73 sq M.predicted among non-blacks MDRD (S/P/Bld) [Vol rate/Area] 116 mL/min/{1.73_m2} Normal >60 [facility] Comment on above: Order Comment: 301.2 Result Comment: mL/m in/1.73m2 CKD-EPI Creatinine Equation (2020) Performed By: #### L 101.9900, L100.0500, L500.4050, L501.6710 #### [facility] [address] [place], [address] Globulin (S) [Mass/Vol] 4.0 g/dL Normal 2.2-4.2 [facility] Comment on above: Order Comment: 301.2 Performed By: #### L 101.9900, L100.0500, L500.4050, L501.6710 #### [facility] [address] [place], [address] Glucose [Mass/Vol] 145 mg/dL High 70-99 [facility] Comment on above: Order Comment: 301.2 Performed By: #### L 101.9900, L100.0500, L500.4050, L501.6710 #### [facility] [address] [place], [address] Potassium [Moles/Vol] 3.5 mmol/L Normal 3.3-5.1 [facility] Comment on above: Order Comment: 301.2 Performed By: #### L 101.9900, L100.0500, L500.4050, L501.6710 #### [facility] [address] [place], [address] Sodium [Moles/Vol] 138 mmol/L Normal 133-145 [facility] Comment on above: Order Comment: 301.2 Performed By: #### L 101.9900, L100.0500, L500.4050, L501.6710 #### [facility] [address] [place], [address] T PROT 7.1 g/dL Normal 5.9-8.4 [facility] Comment on above: Order Comment: 301.2 Performed By: #### L 101.9900, L100.0500, L500.4050, L501.6710 #### [facility] [address] [place], [address] Urea nitrogen [Mass/Vol] 6 mg/dL Normal 4-19 [facility] Comment on above: Order Comment: 301.2 Performed By: #### L 101.9900, L100.0500, L500.4050, L501.6710 #### [facility] [address] [place], [address] Erythrocyte Sed Rateon 05-09 SED RATE 64 mm/hr High 0-20 [facility] Comment on above: Order Comment: 301.2 Performed By: #### L 101.9900, L100.0500, L500.4050, L501.6710 #### [facility] [address] [place], [address] CBC-Complete Blood Cnt No Di ffon 05-08-2025 HCT Normal 40-54 [facility] Comment on above: Order Comment: 301.2 Result Comment: UTO X1 Performed By: #### L 101.9900, L100.0500, L500.4050, L501.6710 #### [facility] [address] [place], [address] HGB Normal 13.0-16.5 [facility] Comment on above: Order Comment: 301.2 Result Comment: UTO X1 Performed By: #### L 101.9900, L100.0500, L500.4050, L501.6710 #### [facility] [address] [place], [address] MCH Normal 27.0-32.0 [facility] Comment on above: Order Comment: 301.2 Result Comment: UTO X1 Performed By: #### L 101.9900, L100.0500, L500.4050, L501.6710 #### [facility] [address] [place], [address] MCHC Normal 32-36 [facility] Comment on above: Order Comment: 301.2 Result Comment: UTO X1 Performed By: #### L 101.9900, L100.0500, L500.4050, L501.6710 #### [facility] [address] [place], [address] MCV Normal 80-94 [facility] Comment on above: Order Comment: 301.2 Result Comment: UTO X1 Performed By: #### L 101.9900, L100.0500, L500.4050, L501.6710 #### [facility] [address] [place], [address] PLT Normal 150-450 [facility] Comment on above: Order Comment: 301.2 Result Comment: UTO X1 Performed By: #### L 101.9900, L100.0500, L500.4050, L501.6710 #### [facility] [address] [place], [address] RBC Normal 4.6-6.2 [facility] Comment on above: Order Comment: 301.2 Result Comment: UTO X1 Performed By: #### L 101.9900, L100.0500, L500.4050, L501.6710 #### [facility] [address] [place], [address] RDW CV Normal 11.6-14.6 [facility] Comment on above: Order Comment: 301.2 Result Comment: UTO X1 Performed By: #### L 101.9900, L100.0500, L500.4050, L501.6710 #### [facility] [address] [place], [address] RDW SD Normal 35.1-43.9 [facility] Comment on above: Order Comment: 301.2 Result Comment: UTO X1 Performed By: #### L 101.9900, L100.0500, L500.4050, L501.6710 #### [facility] [address] [place], [address] WBC Normal 4.4-11.0 [facility] Comment on above: Order Comment: 301.2 Result Comment: UTO X1 Performed By: #### L 101.9900, L100.0500, L500.4050, L501.6710 #### [facility] [address] [place], [address] Comprehensive Metabolic Prof ilon 05-08-2025 ALB Normal 3.4-4.8 [facility] Comment on above: Order Comment: 301.2 Result Comment: UTO X1 Performed By: #### L 101.9900, L100.0500, L500.4050, L501.6710 #### [facility] [address] [place], [address] ALK PHOS Normal 40-129 [facility] Comment on above: Order Comment: 301.2 Result Comment: UTO X1 Performed By: #### L 101.9900, L100.0500, L500.4050, L501.6710 #### [facility] [address] [place], [address] ALT Normal <=46 [facility] Comment on above: Order Comment: 301.2 Result Comment: UTO X1 Performed By: #### L 101.9900, L100.0500, L500.4050, L501.6710 #### [facility] [address] [place], [address] AST Normal <=37 [facility] Comment on above: Order Comment: 301.2 Result Comment: UTO X1 Performed By: #### L 101.9900, L100.0500, L500.4050, L501.6710 #### [facility] [address] [place], [address] BUN Normal 4-19 [facility] Comment on above: Order Comment: 301.2 Result Comment: UTO X1 Performed By: #### L 101.9900, L100.0500, L500.4050, L501.6710 #### [facility] [address] [place], [address] BUN/CRE Normal 10-20 [facility] Comment on above: Order Comment: 301.2 Result Comment: UTO X1 Performed By: #### L 101.9900, L100.0500, L500.4050, L501.6710 #### [facility] [address] [place], [address] Calcium Normal 7.6-11.0 [facility] Comment on above: Order Comment: 301.2 Result Comment: UTO X1 Performed By: #### L 101.9900, L100.0500, L500.4050, L501.6710 #### [facility] [address] [place], [address] CL Normal 98-108 [facility] Comment on above: Order Comment: 301.2 Result Comment: UTO X1 Performed By: #### L 101.9900, L100.0500, L500.4050, L501.6710 #### [facility] [address] [place], [address] CO2 Normal 21.0-32.0 [facility] Comment on above: Order Comment: 301.2 Result Comment: UTO X1 Performed By: #### L 101.9900, L100.0500, L500.4050, L501.6710 #### [facility] [address] [place], [address] CREAT,SERUM Normal 0.70-1.20 [facility] Comment on above: Order Comment: 301.2 Result Comment: UTO X1 Performed By: #### L 101.9900, L100.0500, L500.4050, L501.6710 #### [facility] [address] [place], [address] eGFR Normal >60 [facility] Comment on above: Order Comment: 301.2 Result Comment: UTO X1 Performed By: #### L 101.9900, L100.0500, L500.4050, L501.6710 #### [facility] [address] [place], [address] GAP Normal 5-15 [facility] Comment on above: Order Comment: 301.2 Result Comment: UTO X1 Performed By: #### L 101.9900, L100.0500, L500.4050, L501.6710 #### [facility] [address] [place], [address] GLU Normal 70-99 [facility] Comment on above: Order Comment: 301.2 Result Comment: UTO X1 Performed By: #### L 101.9900, L100.0500, L500.4050, L501.6710 #### [facility] [address] [place], [address] Potassium Normal 3.3-5.1 [facility] Comment on above: Order Comment: 301.2 Result Comment: UTO X1 Performed By: #### L 101.9900, L100.0500, L500.4050, L501.6710 #### [facility] [address] [place], [address] T BILI Normal 0.00-1.30 [facility] Comment on above: Order Comment: 301.2 Result Comment: UTO X1 Performed By: #### L 101.9900, L100.0500, L500.4050, L501.6710 #### [facility] [address] [place], [address] T PROT Normal 5.9-8.4 [facility] Comment on above: Order Comment: 301.2 Result Comment: UTO X1 Performed By: #### L 101.9900, L100.0500, L500.4050, L501.6710 #### [facility] [address] [place], [address] Comprehensive Metabolic Profil Normal 133-145 [facility] Comment on above: Order Comment: 301.2 Result Comment: UTO X1 Performed By: #### L 101.9900, L100.0500, L500.4050, L501.6710 #### [facility] [address] [place], [address] Erythrocyte Sed Rateon 05-08 SED RATE Normal 0-20 [facility] Comment on above: Order Comment: 301.2 Result Comment: UTO X1 Performed By: #### L 101.9900, L100.0500, L500.4050, L501.6710 #### [facility] [address] [place], [address] 36on 05-03-2025 36 Message received marianela Castillo to keep the same dose for now. Called Nikki back at [facility] and released message via voicemail. Encouraged her to call office back if have any more questions or concerns. Normal [facility] 36 Received call from Nikki, nurse at [facility]. They repeated the vanc trough again today due to it being elevated on the . The level today is 22. Facility calling to see if physician wanted to continue the 1gm every 12 hours or want to make another adjustment before his dose at 9am today. Sent secure chat to Dr. Castillo. Awaiting message back. Normal [facility] Vancomycin, Trough Levelon 0 05-03-2025 VANCO, TROUGH 22.0 ug/mL High 5.0-15.0 [facility] Comment on above: Order Comment: 301.2 [...] (Ventilator/Healtcare Associated) -Sepsis PLEASE CONTACT PHARMACY SERVICES (#[id number]) FOR INTERPRETATION OF RESULTS. Performed By: #### L 101.9900, L100.0500, L500.4050, L501.6710 #### [facility] [address] [place], [address] 36on 05-01-2025 36 Received lab report for patient. Labs drawn today and nursing facility. Vanc trough is 26.1. Called and spoke to Ambrosio nurse at facility. Wanted to make sure this is a true trough. Ambrosio stated that labs were drawn by outside company at 6am and vanc dose was given at 8:47am. Sent secure chat to Dr. Castillo to make him aware of vanc level and creatinine. New order to decrease vanc to 1g every 12 hours. OPAT updated and scanned. Verbally read new order to Ambrosio. Verbalized understanding of new order. [facility] 36 Pt dc to [facility] jessy tracey [place] [phone]. Called facility and spoke to nurse Vaughan to verify IV meds, dose, frequency, EOT, weekly labs, and follow up appt with Dr. Castillo on 06/02 at 11am. She was able to read back orders. Also faxed appt reminder to facility and received confirmation fax (scanned under media). Normal [facility] CBC-Complete Blood Cnt No Di ffon 05-01-2025 Erythrocyte distribution width (RBC) [Ratio] 15.9 % High 11.6-14.6 [facility] Comment on above: Performed By: #### L 501.6710, L101.9900, L501.8820 #### [facility] [address] [place], [address] Hematocrit (Bld) [Volume fraction] 33.5 % Low 40-54 [facility] Comment on above: Performed By: #### L 501.6710, L101.9900, L501.8820 #### [facility] [address] [place], [address] Hemoglobin (Bld) [Mass/Vol] 10.9 g/dL Low 13.0-16.5 [facility] Comment on above: Performed By: #### L 501.6710, L101.9900, L501.8820 #### [facility] [address] [place], [address] MCH (RBC) [Entitic mass] 29.4 pg Normal 27.0-32.0 [facility] Comment on above: Performed By: #### L 501.6710, L101.9900, L501.8820 #### [facility] [address] [place], [address] MCHC (RBC) [Mass/Vol] 32.5 g/dL Normal 32-36 [facility] Comment on above: Performed By: #### L 501.6710, L101.9900, L501.8820 #### [facility] [address] [place], [address] MCV (RBC) [Entitic vol] 90.3 fL Normal 80-94 [facility] Comment on above: Performed By: #### L 501.6710, L101.9900, L501.8820 #### [facility] [address] [place], [address] Platelet mean volume (Bld) [Entitic vol] 9.7 fL Normal 6.2-12.0 [facility] Comment on above: Performed By: #### L 501.6710, L101.9900, L501.8820 #### [facility] [address] [place], [address] Platelets (Bld) [#/Vol] 340 10*3/uL Normal 150-450 [facility] Comment on above: Performed By: #### L 501.6710, L101.9900, L501.8820 #### [facility] [address] [place], [address] RBC (Bld) [#/Vol] 3.71 10*6/uL Low 4.6-6.2 [facility] Comment on above: Performed By: #### L 501.6710, L101.9900, L501.8820 #### [facility] [address] [place], [address] RDW SD 51.4 fl High 35.1-43.9 [facility] Comment on above: Performed By: #### L 501.6710, L101.9900, L501.8820 #### [facility] [address] [place], [address] WBC (Bld) [#/Vol] 7.4 10*3/uL Normal 4.4-11.0 [facility] Comment on above: Performed By: #### L 501.6710, L101.9900, L501.8820 #### [facility] [address] [place], [address] Comprehensive Metabolic [facility] 05-01-2025 Albumin [Mass/Vol] 3.0 g/dL Low 3.4-4.8 [facility] Comment on above: Performed By: #### L 501.6710, L101.9900, L501.8820 #### [facility] [address] [place], [address] Albumin/Globulin [Mass ratio] 0.8 {ratio} Low 0.9-2.4 [facility] Comment on above: Performed By: #### L 501.6710, L101.9900, L501.8820 #### [facility] [address] [place], [address] ALK PHOS 115 U/L Normal 40-129 [facility] Comment on above: Performed By: #### L 501.6710, L101.9900, L501.8820 #### [facility] [address] [place], [address] ALT [Catalytic activity/Vol] 7 U/L Normal <=46 [facility] Comment on above: Performed By: #### L 501.6710, L101.9900, L501.8820 #### [facility] [address] [place], [address] AST [Catalytic activity/Vol] 16 U/L Normal <=37 [facility] Comment on above: Performed By: #### L 501.6710, L101.9900, L501.8820 #### [facility] [address] [place], [address] Bilirubin [Mass/Vol] 0.26 mg/dL Normal 0.00-1.30 [facility] Comment on above: Performed By: #### L 501.6710, L101.9900, L501.8820 #### [facility] [address] [place], [address] BUN/CRE 19.4 RATIO Normal 10-20 [facility] Comment on above: Performed By: #### L 501.6710, L101.9900, L501.8820 #### [facility] [address] [place], [address] Calcium [Mass/Vol] 8.5 mg/dL Normal 7.6-11.0 [facility] Comment on above: Performed By: #### L 501.6710, L101.9900, L501.8820 #### [facility] [address] [place], [address] Chloride [Moles/Vol] 106 mmol/L Normal 98-108 [facility] Comment on above: Performed By: #### L 501.6710, L101.9900, L501.8820 #### [facility] [address] [place], [address] CO2 [Moles/Vol] 20.2 mmol/L Low 21.0-32.0 [facility] Comment on above: Performed By: #### L 501.6710, L101.9900, L501.8820 #### [facility] [address] [place], [address] Creatinine [Mass/Vol] 0.51 mg/dL Low 0.70-1.20 [facility] Comment on above: Performed By: #### L 501.6710, L101.9900, L501.8820 #### [facility] [address] [place], [address] GAP 12 Normal 5-15 [facility] Comment on above: Performed By: #### L 501.6710, L101.9900, L501.8820 #### [facility] [address] [place], [address] GFR/1.73 sq M.predicted among non-blacks MDRD (S/P/Bld) [Vol rate/Area] 114 mL/min/{1.73_m2} Normal >60 [facility] Comment on above: Result Comment: mL/m in/1.73m2 CKD-EPI Creatinine Equation (2020) Performed By: #### L 501.6710, L101.9900, L501.8820 #### [facility] [address] [place], [address] Globulin (S) [Mass/Vol] 3.8 g/dL Normal 2.2-4.2 [facility] Comment on above: Performed By: #### L 501.6710, L101.9900, L501.8820 #### [facility] [address] [place], [address] Glucose [Mass/Vol] 126 mg/dL High 70-99 [facility] Comment on above: Performed By: #### L 501.6710, L101.9900, L501.8820 #### [facility] [address] [place], [address] Potassium [Moles/Vol] 3.7 mmol/L Normal 3.3-5.1 [facility] Comment on above: Performed By: #### L 501.6710, L101.9900, L501.8820 #### [facility] [address] [place], [address] Sodium [Moles/Vol] 138 mmol/L Normal 133-145 [facility] Comment on above: Performed By: #### L 501.6710, L101.9900, L501.8820 #### [facility] [address] [place], [address] T PROT 6.8 g/dL Normal 5.9-8.4 [facility] Comment on above: Performed By: #### L 501.6710, L101.9900, L501.8820 #### [facility] [address] [place], [address] Urea nitrogen [Mass/Vol] 10 mg/dL Normal 4-19 [facility] Comment on above: Performed By: #### L 501.6710, L101.9900, L501.8820 #### [facility] [address] [place], [address] Vancomycin, Trough Levelon 0 05-01-2025 VANCO, TROUGH 26.1 ug/mL High 5.0-15.0 [facility] Comment on above: Order Comment: 301.2 [...] (Ventilator/Healtcare Associated) -Sepsis PLEASE CONTACT PHARMACY SERVICES (#[id number]) FOR INTERPRETATION OF RESULTS. Performed By: #### L 501.6710, L101.9900, L501.8820 #### [facility] [address] [place], [address] 30on 04-28-2025 30 Proteus is sensitive to unasyn. OPAT for unasyn and vancomycin completed and scanned into media with stop date of 06/06. Follow up with Dr. Castillo. D/w TCC. Plans for discharge to SNF. Jo-Ann Ortiz MD [facility] [phone] 04-28-2025 [id number] Senior Care/SNF - Return [place] [address] [address] [facility] [phone] [phone] Patient/Family Choice [facility] [phone] Next Site of Care Admission Date: 04/21/2025 09:56 PM Patient Name: ANMOL REYNOLDS [address]: [id number] A Date of : 1960 ------- Placement Information ------- Referral Type:Senior Care/SNF - Return Referral ID:[id number] Provider Name:[facility] Address 1:[address] [place] [address] Address 2: City:[place] Selection Factors:Patient/Famil y Choice State:[place] [facility] [phone] Confirmed pickup mingo e of 5:30pm on 04/28/25 by transport [employer] at phone number [phone]. Location of facility drop off is [facility]. [facility] notified on secure chat. [facility] [phone] Transport requested in [facility] in will call to [facility] per TCC. Normal [facility] Bacteria identified Aer cx N om (Unsp spec)on 04-28-2025 Gram Stain Result Many Polymorphonuclear leukocytes per low power field Abnormal [facility] Gram Stain Result Positive Abnormal [facility] ealt Interpretation and review of laboratory results Abnormal [facility] Laboratory - Chemistry and C hemistry - challengeon 04-28-2025 Glucose [Mass/Vol] 212 mg/dL High 70 - 100 mg/dL [facility] Glucose [Mass/Vol] 183 mg/dL High 70 - 100 mg/dL [facility] Glucose [Mass/Vol] 152 mg/dL High 70 - 100 mg/dL [facility] - Microbiology an d Antimicrobial susceptibilityon 04-28-2025 Bacteria identified Aer cx Nom (Unsp spec) Rare skin gosia present [facility] Bacteria identified Aer cx Nom (Unsp spec) Moderate Enterococcus raffinosus Abnormal [facility] Bacteria identified Aer cx Nom (Unsp spec) Rare Proteus mirabilis Abnormal [facility] No Panel Informationon 04-28 Interpretation and review of laboratory results Abnormal [facility] Performed by: [place] [address] CLIA ID: [id number] [facility] Interpretation and review of laboratory results Abnormal [facility] Performed by: [address] [address] CLIA ID: [id number] [facility] Interpretation and review of laboratory results Abnormal [facility] Performed by: [address] [address] CLIA ID: [id number] [facility] Nursing Noteon 04-28-2025 Nursing Note [facility] to [facility]. PICC line clean dry and intact. Aide got pt ready and gathered all belongings. Waiting on transport to arrive. Normal [facility] 30on 04-27-2025 [address] Castillo- s/p Mina ischial wound debridement with osteomyelitis. Additional organisms are being reported on OR cx. E raffinosus, Proteus, MRSA, Clostridium ramosum, enteric gosia, and skin gosia. Await Proteus sensitivities prior to completion of OPAT. Will provide final recommendations tomorrow. D/w TCC. Jo-Ann Ortiz MD Normal [facility] BASIC METABOLIC PANELon 07-2 Anion gap [Moles/Vol] 3 mmol/L Normal 3-13 [facility] Comment on above: Performed By: #### L [id number] ####Senior Regulatory Affairs Specialist: BIANCA NICHOLS ([phone])[facility] ([facility])[address] [place] [address] Calcium [Mass/Vol] 8.6 mg/dL Low 8.8-10.0 [facility] Comment on above: Performed By: #### L AB15 ####Senior Regulatory Affairs Specialist: BIANCA NICHOLS ([phone])[facility] ([facility])[address] [place] [address] Chloride [Moles/Vol] 104 mmol/L Normal 98-107 [facility] Comment on above: Performed By: #### L AB15 ####Senior Regulatory Affairs Specialist: BIANCA NICHOLS ([phone])[facility] ([facility])[address] [place] [address] CO2 [Moles/Vol] 29 mmol/L Normal 23-31 [facility] Comment on above: Performed By: #### L AB15 ####Senior Regulatory Affairs Specialist: BIACNA NICHOLS ([phone])[facility] ([facility])[address] [place] [address] Creatinine [Mass/Vol] 0.64 mg/dL Low 0.72-1.25 [facility] Comment on above: Performed By: #### L AB15 ####Senior Regulatory Affairs Specialist: BIANCA NICHOLS ([phone])[facility] ([facility])[address] [place] [address] [place] GLOMERULAR FILTRATION RATE ML/MIN/1.73 SQ M.PREDICTED >90.0 Normal >60.0 [facility] Comment on above: Result Comment: Calc ulation based on the Chronic Kidney Disease Epidemiology Collaboration (CKD-EPI) equation refit without adjustment for race Performed By: #### L AB15 ####Senior Regulatory Affairs Specialist: BIANCA NICHOLS ([phone])[facility])[address] [place] [address] Glucose [Mass/Vol] 96 mg/dL Normal 82-115 [facility] Comment on above: Performed By: #### L AB15 ####Senior Regulatory Affairs Specialist: BIANCA NICHOLS ([phone])[facility])[address] [place] [address] Potassium [Moles/Vol] 4.0 mmol/L Normal 3.5-5.1 [facility] Comment on above: Result Comment: [facility] potassium values may be up to 0.5 mmol/L lower than serum values. Performed By: #### L AB15 ####Senior Regulatory Affairs Specialist: BIANCA NICHOLS ([phone])[facility] ([facility])[address] [place] [address] Sodium [Moles/Vol] 136 mmol/L Normal 136-145 [facility] Comment on above: Performed By: #### L AB15 ####Senior Regulatory Affairs Specialist: BIANCA NICHOLS ([phone])[facility] ([facility])[address] [place] [address] Urea nitrogen [Mass/Vol] 21 mg/dL Normal 9-23 [facility] Comment on above: Performed By: #### L AB15 ####Senior Regulatory Affairs Specialist: BIANCA NICHOLS ([phone])[facility])[address] [place] [address] Bacteria identified Aer cx N om (Unsp spec)on 04-27-2025 Gram Stain Result Few Polymorphonuclea r leukocytes per low power field [facility] Gram Stain Result No organisms seen [facility] Interpretation and review of laboratory results Abnormal [facility] Bacteria identified Anaer cx Nom (Unsp spec)Ordered By: Vijaya Mariscal on 04-27-2025 Interpretation and review of laboratory results Abnormal [facility] Bacteria identified Cx Nom ( Bld)on 04-27-2025 Interpretation and review of laboratory results Normal [facility] Blood Collection Site: Right Forearm [facility] Blood Collection Site: Left PICC Purple Lumen [facility] Basic metabolic 1998 panelon 04-27-2025 Anion gap [Moles/Vol] 3 mmol/L 3 - 13 mmol/L [facility] Calcium [Mass/Vol] 8.6 mg/dL Low 8.8 - 10. 0 mg/dL [facility] Chloride [Moles/Vol] 104 mmol/L 98 - 10 7 mmol/L [facility] CO2 [Moles/Vol] 29 mmol/L 23 - 31 mmol/L [facility] Creatinine [Mass/Vol] 0.64 mg/dL Low 0.72 - 1.25 mg/dL [facility] GFR/1.73 sq M.predicted (S/P/Bld) [Vol rate/Area] - PINF [facility] Comment on above: Calculation based on the Chronic Kidney Disease Epidemiology Collaboration (CKD-EPI) equation refit without adjustment for race Glucose [Mass/Vol] 96 mg/dL 82 - 115 mg/dL [facility] Interpretation and review of laboratory results Abnormal [facility] Potassium [Moles/Vol] 4 mmol/L 3.5 - 5.1 mmol/L [facility] Comment on above: Plasma potassium leonie ues may be up to 0.5 mmol/L lower than serum values. Sodium [Moles/Vol] 136 mmol/L 136 - 145 mmol/L [facility] Urea nitrogen [Mass/Vol] 21 mg/dL 9 - 23 mg/dL [facility] CBC W Auto Differential pane l (Bld)on 04-27-2025 Basophils (Bld) [#/Vol] 0.1 10*3/uL 0.0 - 0.2 10*3/uL [facility] Basophils/100 WBC (Bld) 0.8 % 0.0 - 2.0 % [facility] Eosinophils (Bld) [#/Vol] 0.4 10*3/uL 0.0 - 0.5 10*3/uL [facility] Eosinophils/100 WBC (Bld) 5.3 % 0.0 - 6.0 % [facility] Erythrocyte distribution width (RBC) [Ratio] 14.9 % 11.5 - 15.0 % [facility] Hematocrit (Bld) [Volume fraction] 34 % Low 40.0 - 52.0 % [facility] Hemoglobin (Bld) [Mass/Vol] 10.9 g/dL Low 13.0 - 18.0 g/dL [facility] Immature granulocytes (Bld) [#/Vol] 0 10*3/uL NINF - 0.1 10*3/uL [facility] [employer] Immature granulocytes/100 WBC (Bld) 0.5 % 0.0 - 2.0 % [facility] Interpretation and review of laboratory results Abnormal [facility] Lymphocytes (Bld) [#/Vol] 2.9 10*3/uL 1.0 - 4.3 10*3/uL [facility] Lymphocytes/100 WBC (Bld) 36.4 % 15.0 - 45.0 % [facility] MCH (RBC) [Entitic mass] 28.8 pg 26. 0 - 34.0 pg [facility] MCHC (RBC) [Mass/Vol] 32.1 % 30.5 - 36.0 % [facility] MCV (RBC) [Entitic vol] 89.9 fL 77.0 - 99.0 fL [facility] Monocytes (Bld) [#/Vol] 0.7 10*3/uL 0.0 - 0.9 10*3/uL [facility] Monocytes/100 WBC (Bld) 8.2 % 5.0 - 13.0 % [facility] Neutrophils (Bld) [#/Vol] 3.9 10*3/uL 1.8 - 7.5 10*3/uL [facility] Neutrophils/100 WBC (Bld) 48.8 % 38.0 - 82.0 % [facility] Nucleated RBC/100 WBC (Bld) [Ratio] 0 % [facility] Platelet mean volume (Bld) [Entitic vol] 9.5 fL 9.0 - 12.7 fL [facility] Platelets (Bld) [#/Vol] 363 10*3/uL 140 - 440 10*3/uL [facility] RBC (Bld) [#/Vol] 3.78 10*6/uL Low 4.40 - 5.9 0 10*6/uL [facility] WBC (Bld) [#/Vol] 8 10*3/uL 3.6 - 10.7 10*3/uL [facility] CBC WITH AUTO DIFFERENTIALon 04-27-2025 Basophils (Bld) [#/Vol] 0.1 10*3/uL Normal 0.0-0.2 [facility] Comment on above: Performed By: #### L [id number] ####Senior Regulatory Affairs Specialist: BIANCA NICHOLS ([phone])[facility])[address] [place] [address] Basophils/100 WBC (Bld) 0.8 % Normal 0.0-2.0 [facility] Comment on above: Performed By: #### L [id number] ####Senior Regulatory Affairs Specialist: BIANCA NICHOLS ([phone])[facility])[address] [place] [address] Eosinophils (Bld) [#/Vol] 0.4 10*3/uL Normal 0.0-0.5 [facility] Comment on above: Performed By: #### L [id number] ####Senior Regulatory Affairs Specialist: BIANCA NICHOLS ([phone])[address] Eosinophils/100 WBC (Bld) 5.3 % Normal 0.0-6.0 [facility] Comment on above: Performed By: #### L [id number] ####Senior Regulatory Affairs Specialist: BIANCA NICHOLS ([phone])[facility])[address] [place] [address] Erythrocyte distribution width (RBC) [Ratio] 14.9 % Normal 11.5-15.0 [facility] Comment on above: Performed By: #### L [id number] ####Senior Regulatory Affairs Specialist: BIANCA NICHOLS ([phone])[address] Hematocrit (Bld) [Volume fraction] 34.0 % Low 40.0-52.0 [facility] Comment on above: Performed By: #### L [id number] ####Senior Regulatory Affairs Specialist: BIANCA NICHOLS ([phone])[facility])[address] [place] [address] Hemoglobin (Bld) [Mass/Vol] 10.9 g/dL Low 13.0-18.0 [facility] Comment on above: Performed By: #### L [id number] ####Senior Regulatory Affairs Specialist: BIANCA NICHOLS ([phone])[facility])[address] [place] [address] IMMATURE GRANS % 0.5 % Normal 0.0-2.0 [facility] Comment on above: Performed By: #### L [id number] ####Senior Regulatory Affairs Specialist: BIANCA NICHOLS ([phone])[facility])[address] [place] [address] IMMATURE GRANS ABSOLUTE 0.0 10*3/uL Normal <0.1 [facility] Comment on above: Performed By: #### L [id number] ####Senior Regulatory Affairs Specialist: BIANCA NICHOLS ([phone])[facility])[address] [place] [address] Lymphocytes (Bld) [#/Vol] 2.9 10*3/uL Normal 1.0-4.3 [facility] Comment on above: Performed By: #### L [id number] ####Senior Regulatory Affairs Specialist: BIANCA NICHOLS ([phone])[facility])[address] [place] [address] Lymphocytes/100 WBC (Bld) 36.4 % Normal 15.0-45.0 [facility] Comment on above: Performed By: #### L [id number] ####Senior Regulatory Affairs Specialist: BIANCA NICHOLS ([phone])[facility])[address] [place] [address] MCH (RBC) [Entitic mass] 28.8 pg Normal 26.0-34.0 [facility] Comment on above: Performed By: #### L [id number] ####Senior Regulatory Affairs Specialist: BIANCA NICHOLS ([phone])[facility])[address] [place] [address] MCHC 32.1 % Normal 30.5-36.0 [facility] Comment on above: Performed By: #### L [id number] ####Senior Regulatory Affairs Specialist: BIANCA NICHOLS ([phone])[facility])[address] [place] [address] MCV (RBC) [Entitic vol] 89.9 fL Normal 77.0-99.0 [facility] Comment on above: Performed By: #### L [id number] ####Senior Regulatory Affairs Specialist: BIANCA NICHOLS ([phone])[facility] ([facility])[address] [place] [address] Monocytes (Bld) [#/Vol] 0.7 10*3/uL Normal 0.0-0.9 [facility] Comment on above: Performed By: #### L [id number] ####Senior Regulatory Affairs Specialist: BIANCA NICHOLS ([phone])[facility] ([facility])[address] [place] [address] Monocytes/100 WBC (Bld) 8.2 % Normal 5.0-13.0 [facility] Comment on above: Performed By: #### L [id number] ####Senior Regulatory Affairs Specialist: BIANCA NICHOLS ([phone])[facility] ([facility])[address] [place] [address] NEUTROPHILS ABSOLUTE 3.9 10*3/uL Normal 1.8-7.5 [facility] Comment on above: Performed By: #### L [id number] ####Senior Regulatory Affairs Specialist: BIANCA NICHOLS ([phone])[facility] ([facility])[address] [place] [address] Neutrophils/100 WBC (Bld) 48.8 % Normal 38.0-82.0 [facility] Comment on above: Performed By: #### L [id number] ####Senior Regulatory Affairs Specialist: BIANCA NICHOLS ([phone])[facility] ([facility])[address] [place] [address] NRBC 0.0 /100 WBCs Normal 0.0-2.0 [facility] Comment on above: Performed By: #### L [id number] ####Senior Regulatory Affairs Specialist: BIANCA NICHOLS ([phone])[facility])[address] [place] [address] Platelet mean volume (Bld) [Entitic vol] 9.5 fL Normal 9.0-12.7 [facility] Comment on above: Performed By: #### L [id number] ####Senior Regulatory Affairs Specialist: BIANCA NICHOLS ([phone])[facility])[address] [place] [address] Platelets (Bld) [#/Vol] 363 10*3/uL Normal 140-440 [facility] Comment on above: Performed By: #### L [id number] ####Senior Regulatory Affairs Specialist: BIANCA NICHOLS ([phone])[facility] ([facility])[address] [place] [address] RBC (Bld) [#/Vol] 3.78 10*6/uL Low 4.40-5.90 [facility] Comment on above: Performed By: #### L [id number] ####Senior Regulatory Affairs Specialist: BIANCA NICHOLS ([phone])[facility] ([facility])[address] [place] [address] WBC (Bld) [#/Vol] 8.0 10*3/uL Normal 3.6-10.7 [facility] Comment on above: Performed By: #### L [id number] ####Senior Regulatory Affairs Specialist: BIANCA NICHOLS ([phone])[facility] ([facility])[address] [place] [address] Laboratory - Chemistry and C hemistry - challengeon 04-27-2025 Glucose [Mass/Vol] 146 mg/dL High 70 - 100 mg/dL [facility] Glucose [Mass/Vol] 228 mg/dL High 70 - 100 mg/dL [facility] Glucose [Mass/Vol] 265 mg/dL High 70 - 100 mg/dL [facility] Glucose [Mass/Vol] 137 mg/dL High 70 - 100 mg/dL [facility] Laboratory - Microbiology an d Antimicrobial susceptibilityOrdered By: Vijaya Mariscal on 04-27-2025 Bacteria identified Anaer cx Nom (Unsp spec) Moderate Anaerobic Gram-negative bacilli, not B. fragilis Abnormal [facility] Laboratory - Microbiology an d Antimicrobial susceptibilityon 04-27-2025 Bacteria identified Aer cx Nom (Unsp spec) Rare Enterococcus raffinosus Abnormal [facility] Bacteria identified Cx Nom (Bld) No growth at 5 days [facility] No Panel Informationon 04-27 Interpretation and review of laboratory results Abnormal [facility] Performed by: [place] [address] CLIA ID: [id number] [facility] Interpretation and review of laboratory results Abnormal [facility] Performed by: [address] [address] CLIA ID: [id number] [facility] Interpretation and review of laboratory results Abnormal [facility] Performed by: [facility], [address] [place] [address] CLIA ID: [id number] [facility] Interpretation and review of laboratory results Abnormal [facility] Performed by: [facility], [address] [place] [address] CLIA ID: [id number] [facility] Nursing Noteon 04-27-2025 Nursing Note Patient dressings changed as per orders. Patient tolerated well. Left PICC dressing changed patient tolerated well Normal [facility] BASIC METABOLIC PANELon 04-05 Anion gap [Moles/Vol] 6 mmol/L Normal -13 [facility] Comment on above: Performed By: #### L [id number] ####Senior Regulatory Affairs Specialist: BIANCA NICHOLS ([phone])[facility] ([facility])[address] [place] [address] Calcium [Mass/Vol] 8.5 mg/dL Low 8.8-10.0 [facility] Comment on above: Performed By: #### L AB15 ####Senior Regulatory Affairs Specialist: BIANCA NICHOLS ([phone])[facility] ([facility])[address] [place] [address] [place] Chloride [Moles/Vol] 103 mmol/L Normal 98-107 [facility] Comment on above: Performed By: #### L AB15 ####Senior Regulatory Affairs Specialist: BIANCA NICHOLS ([phone])[facility] ([facility])[address] [place] [address] [place] CO2 [Moles/Vol] 27 mmol/L Normal 23-31 [facility] Comment on above: Performed By: #### L AB15 ####Senior Regulatory Affairs Specialist: BIANCA NICHOLS ([phone])[facility])[address] [place] [address] [place] Creatinine [Mass/Vol] 0.62 mg/dL Low 0.72-1.25 [facility] Comment on above: Performed By: #### L AB15 ####Senior Regulatory Affairs Specialist: BIANCA NICHOLS ([phone])[facility])[address] [place] [address] GLOMERULAR FILTRATION RATE ML/MIN/1.73 SQ M.PREDICTED >90.0 Normal >60.0 [facility] Comment on above: Result Comment: Calc ulation based on the Chronic Kidney Disease Epidemiology Collaboration (CKD-EPI) equation refit without adjustment for race Performed By: #### L AB15 ####Senior Regulatory Affairs Specialist: BIANCA NICHOLS ([phone])[facility])[address] [place] [address] Glucose [Mass/Vol] 155 mg/dL High 82-115 [facility] Comment on above: Performed By: #### L AB15 ####Senior Regulatory Affairs Specialist: BIANCA [phone])[address] Potassium [Moles/Vol] 4.0 mmol/L Normal 3.5-5.1 [facility] Comment on above: Result Comment: [facility] potassium values may be up to 0.5 mmol/L lower than serum values. Performed By: #### L AB15 ####Senior Regulatory Affairs Specialist: BIANCA NICHOLS ([phone])[facility])[address] [place] [address] Sodium [Moles/Vol] 136 mmol/L Normal 136-145 [facility] Comment on above: Performed By: #### L AB15 ####Senior Regulatory Affairs Specialist: BIANCA NICHOLS ([phone])[facility])[address] [place] [address] [place] Urea nitrogen [Mass/Vol] 19 mg/dL Normal -23 [facility] Comment on above: Performed By: #### L AB15 ####Senior Regulatory Affairs Specialist: BIANCA [phone])[facility])[address] [place] [address] [place] Basic metabolic 1998 panelon 04-26-2025 Anion gap [Moles/Vol] 6 mmol/L 3 - 13 mmol/L [facility] Calcium [Mass/Vol] 8.5 mg/dL Low 8.8 - 10. 0 mg/dL [facility] Chloride [Moles/Vol] 103 mmol/L 98 - 10 7 mmol/L [facility] CO2 [Moles/Vol] 27 mmol/L 23 - 31 mmol/L [facility] Creatinine [Mass/Vol] 0.62 mg/dL Low 0.72 - 1.25 mg/dL [facility] GFR/1.73 sq M.predicted (S/P/Bld) [Vol rate/Area] - PINF [facility] Comment on above: Calculation based on the Chronic Kidney Disease Epidemiology Collaboration (CKD-EPI) equation refit without adjustment for race Glucose [Mass/Vol] 155 mg/dL High 82 - 115 mg/dL [facility] Interpretation and review of laboratory results Abnormal [facility] Potassium [Moles/Vol] 4 mmol/L 3.5 - 5.1 mmol/L [facility] Comment on above: Plasma potassium leonie ues may be up to 0.5 mmol/L lower than serum values. Sodium [Moles/Vol] 136 mmol/L 136 - 145 mmol/L [facility] Urea nitrogen [Mass/Vol] 19 mg/dL 9 - 23 mg/dL [facility] CBC (HEMOGRAM)on 04-26-2025 Erythrocyte distribution width (RBC) [Ratio] 14.8 % Normal 11.5-15.0 [facility] Comment on above: Performed By: #### L [id number] ####Senior Regulatory Affairs Specialist: BIANCA NICHOLS ([phone])[address] Hematocrit (Bld) [Volume fraction] 33.8 % Low 40.0-52.0 [facility] Comment on above: Performed By: #### L [id number] ####Senior Regulatory Affairs Specialist: BIANCA NICHOLS ([phone])[address] Hemoglobin (Bld) [Mass/Vol] 11.0 g/dL Low 13.0-18.0 [facility] Comment on above: Performed By: #### L [id number] ####Senior Regulatory Affairs Specialist: BIANCA NICHOLS ([phone])[facility] ([facility])[address] [place] [address] MCH (RBC) [Entitic mass] 29.3 pg Normal 26.0-34.0 [facility] Comment on above: Performed By: #### L [id number] ####Senior Regulatory Affairs Specialist: BIANCA NICHOLS ([phone])[facility])[address] [place] [address] MCHC 32.5 % Normal 30.5-36.0 [facility] Comment on above: Performed By: #### L [id number] ####Senior Regulatory Affairs Specialist: BIANCA NICHOLS ([phone])[facility])[address] [place] [address] MCV (RBC) [Entitic vol] 89.9 fL Normal 77.0-99.0 [facility] Comment on above: Performed By: #### L [id number] ####Senior Regulatory Affairs Specialist: BIANCA NICHOLS ([phone])[facility] ([facility])[address] [place] [address] Platelet mean volume (Bld) [Entitic vol] 9.5 fL Normal 9.0-12.7 [facility] Comment on above: Performed By: #### L [id number] ####Senior Regulatory Affairs Specialist: BIANCA NICHOLS ([phone])[facility])[address] [place] [address] Platelets (Bld) [#/Vol] 386 10*3/uL Normal 140-440 [facility] Comment on above: Performed By: #### L [id number] ####Senior Regulatory Affairs Specialist: BIANCA NICHOLS ([phone])[facility])[address] [place] [address] RBC (Bld) [#/Vol] 3.76 10*6/uL Low 4.40-5.90 [facility] Comment on above: Performed By: #### L [id number] ####Senior Regulatory Affairs Specialist: BIANCA NICHOLS ([phone])[facility] ([facility])[address] [place] [address] WBC (Bld) [#/Vol] 7.3 10*3/uL Normal 3.6-10.7 [facility] Comment on above: Performed By: #### L [id number] ####Senior Regulatory Affairs Specialist: BIANCA NICHOLS ([phone])[facility] ([facility])[address] [place] [address] CBC panel Auto (Bld)on 04-26 Erythrocyte distribution width (RBC) [Ratio] 14.8 % 11.5 - 15.0 % [facility] Hematocrit (Bld) [Volume fraction] 33.8 % Low 40.0 - 52.0 % [facility] Hemoglobin (Bld) [Mass/Vol] 11 g/dL Low 13.0 - 18.0 g/dL [facility] Interpretation and review of laboratory results Abnormal [facility] MCH (RBC) [Entitic mass] 29.3 pg 26. 0 - 34.0 pg [facility] MCHC (RBC) [Mass/Vol] 32.5 % 30.5 - 36.0 % [facility] MCV (RBC) [Entitic vol] 89.9 fL 77.0 - 99.0 fL [facility] Platelet mean volume (Bld) [Entitic vol] 9.5 fL 9.0 - 12.7 fL [facility] Platelets (Bld) [#/Vol] 386 10*3/uL 140 - 440 10*3/uL [facility] RBC (Bld) [#/Vol] 3.76 10*6/uL Low 4.40 - 5.9 0 10*6/uL [facility] WBC (Bld) [#/Vol] 7.3 10*3/uL 3.6 - 10.7 10*3/uL [facility] IRON AND TIBCon 04-26-2025 IRON BINDING CAPACITY 136 ug/dL Low 250-450 [facility] Comment on above: Performed By: #### L [id number] ####Senior Regulatory Affairs Specialist: BIANCA NICHOLS ([phone])[facility] [place] [address] IRON SATURATION 44.1 % Normal 20.0-50.0 [facility] Comment on above: Performed By: #### L [id number] ####Senior Regulatory Affairs Specialist: BIANCA NICHOLS ([phone])[facility])[address] [place] [address] IRON, TOTAL 60 ug/dL Low 65-175 [facility] Comment on above: Performed By: #### L [id number] ####Senior Regulatory Affairs Specialist: BIANCA NICHOLS ([phone])[facility] ([facility])[address] [place] [address] Iron and Iron binding capaci ty panelon 04-26-2025 Interpretation and review of laboratory results Abnormal [facility] Iron [Mass/Vol] 60 ug/dL Low 65 - 175 ug/dL [facility] Iron binding capacity [Mass/Vol] 136 ug/dL Low 250 - 450 ug/dL [facility] Iron saturation [Mass fraction] 44.1 % 20.0 - 50.0 % [facility] Laboratory - Chemistry and C hemistry - challengeon 04-26-2025 Glucose [Mass/Vol] 244 mg/dL High 70 - 100 mg/dL [facility] Glucose [Mass/Vol] 199 mg/dL High 70 - 100 mg/dL [facility] Glucose [Mass/Vol] 219 mg/dL High 70 - 100 mg/dL [facility] Glucose [Mass/Vol] 185 mg/dL High 70 - 100 mg/dL [facility] No Panel Informationon 04-26 Interpretation and review of laboratory results Abnormal [facility] Performed by: [place] [address] CLIA ID: [id number] [facility] Interpretation and review of laboratory results Abnormal [facility] Performed by: [address] [address] CLIA ID: [id number] [facility] Interpretation and review of laboratory results Abnormal [facility] Performed by: [address] [address] CLIA ID: [id number] [facility] Interpretation and review of laboratory results Abnormal [facility] Performed by: [place] [address] CLIA ID: [id number] [facility] BASIC METABOLIC PANELon 07-2 Anion gap [Moles/Vol] 7 mmol/L Normal 3-13 [facility] Comment on above: Performed By: #### L [id number] ####Senior Regulatory Affairs Specialist: BIANCA NICHOLS ([phone])[facility] ([facility])[address] [place] [address] Calcium [Mass/Vol] 8.2 mg/dL Low 8.8-10.0 [facility] Comment on above: Performed By: #### L [id number] ####Senior Regulatory Affairs Specialist: BIANCA NICHOLS ([phone])[facility] ([facility])[address] [place] [address] Chloride [Moles/Vol] 101 mmol/L Normal 98-107 [facility] Comment on above: Performed By: #### L [id number] ####Senior Regulatory Affairs Specialist: BIANCA NICHOLS ([phone])[facility])[address] [place] [address] CO2 [Moles/Vol] 26 mmol/L Normal 23-31 [facility] Comment on above: Performed By: #### L [id number] ####Senior Regulatory Affairs Specialist: BIANCA NICHOLS ([phone])[facility] ([facility])[address] [place] [address] Creatinine [Mass/Vol] 0.73 mg/dL Normal 0.72-1.25 [facility] Comment on above: Performed By: #### L [id number] ####Senior Regulatory Affairs Specialist: BIANCA NICHOLS ([phone])[facility] ([facility])[address] [place] [address] GLOMERULAR FILTRATION RATE ML/MIN/1.73 SQ M.PREDICTED >90.0 Normal >60.0 [facility] Comment on above: Result Comment: Calc ulation based on the Chronic Kidney Disease Epidemiology Collaboration (CKD-EPI) equation refit without adjustment for race Performed By: #### L [id number] ####Senior Regulatory Affairs Specialist: BIANCA NICHOLS ([phone])[facility] ([facility])[address] [place] [address] [place] Glucose [Mass/Vol] 213 mg/dL High 82-115 [facility] Comment on above: Performed By: #### L [id number] ####Senior Regulatory Affairs Specialist: BIANCA NICHOLS ([phone])[facility])[address] [place] [address] Potassium [Moles/Vol] 4.3 mmol/L Normal 3.5-5.1 [facility] Comment on above: Result Comment: [facility] potassium values may be up to 0.5 mmol/L lower than serum values. Performed By: #### L [id number] ####Senior Regulatory Affairs Specialist: BIANCA NICHOLS ([phone])[facility] ([facility])[address] [place] [address] Sodium [Moles/Vol] 134 mmol/L Low 136-145 [facility] Comment on above: Performed By: #### L [id number] ####Senior Regulatory Affairs Specialist: BIANCA NICHOLS ([phone])[facility] ([facility])[address] [place] [address] Urea nitrogen [Mass/Vol] 14 mg/dL Normal 9-23 [facility] Comment on above: Performed By: #### L [id number] ####Senior Regulatory Affairs Specialist: BIANCA NICHOLS ([phone])[facility])[address] [place] [address] Bacteria identified Aer cx N om (Unsp spec)Ordered By: Joy York on 04-25-2025 Gram Stain Result Many Polymorphonuclear leukocytes per low power field Abnormal [facility] Gram Stain Result Negative Abnormal [facility] ealt Gram Stain Result Positive Abnormal [facility] ealt Interpretation and review of laboratory results Abnormal [facility] PBP2A Positive [facility] Basic metabolic 1998 panelon 04-25-2025 Anion gap [Moles/Vol] 7 mmol/L 3 - 13 mmol/L [facility] Calcium [Mass/Vol] 8.2 mg/dL Low 8.8 - 10. 0 mg/dL [facility] Chloride [Moles/Vol] 101 mmol/L 98 - 10 7 mmol/L [facility] CO2 [Moles/Vol] 26 mmol/L 23 - 31 mmol/L [facility] Creatinine [Mass/Vol] 0.73 mg/dL 0.72 - 1.25 mg/dL [facility] [employer] GFR/1.73 sq M.predicted (S/P/Bld) [Vol rate/Area] - PINF [facility] [employer] Comment on above: Calculation based on the Chronic Kidney Disease Epidemiology Collaboration (CKD-EPI) equation refit without adjustment for race Glucose [Mass/Vol] 213 mg/dL High 82 - 115 mg/dL [facility] Interpretation and review of laboratory results Abnormal [facility] [employer] Potassium [Moles/Vol] 4.3 mmol/L 3.5 - 5.1 mmol/L [facility] Comment on above: Plasma potassium leonie ues may be up to 0.5 mmol/L lower than serum values. Sodium [Moles/Vol] 134 mmol/L Low 136 - 145 mmol/L [facility] [employer] Urea nitrogen [Mass/Vol] 14 mg/dL 9 - 23 mg/dL [facility] [employer] CBC W Auto Differential pane l (Bld)on 04-25-2025 Basophils (Bld) [#/Vol] 0 10*3/uL 0.0 - 0.2 10*3/uL [facility] [employer] Basophils/100 WBC (Bld) 0.4 % 0.0 - 2.0 % [facility] [employer] Eosinophils (Bld) [#/Vol] 0.1 10*3/uL 0.0 - 0.5 10*3/uL [facility] [employer] Eosinophils/100 WBC (Bld) 0.8 % 0.0 - 6.0 % [facility] [employer] Erythrocyte distribution width (RBC) [Ratio] 14.8 % 11.5 - 15.0 % [facility] [employer] Hematocrit (Bld) [Volume fraction] 32.6 % Low 40.0 - 52.0 % [facility] [employer] Hemoglobin (Bld) [Mass/Vol] 10.4 g/dL Low 13.0 - 18.0 g/dL [facility] [employer] Immature granulocytes (Bld) [#/Vol] 0 10*3/uL NINF - 0.1 10*3/uL [facility] [employer] Immature granulocytes/100 WBC (Bld) 0.4 % 0.0 - 2.0 % [facility] Interpretation and review of laboratory results Abnormal [facility] [employer] Lymphocytes (Bld) [#/Vol] 2 10*3/uL 1.0 - 4.3 10*3/uL [facility] Lymphocytes/100 WBC (Bld) 20.7 % 15.0 - 45.0 % [facility] MCH (RBC) [Entitic mass] 28.7 pg 26. 0 - 34.0 pg [facility] MCHC (RBC) [Mass/Vol] 31.9 % 30.5 - 36.0 % [facility] MCV (RBC) [Entitic vol] 90.1 fL 77.0 - 99.0 fL [facility] Monocytes (Bld) [#/Vol] 0.9 10*3/uL 0.0 - 0.9 10*3/uL [facility] Monocytes/100 WBC (Bld) 9.3 % 5.0 - 13.0 % [facility] Neutrophils (Bld) [#/Vol] 6.5 10*3/uL 1.8 - 7.5 10*3/uL [facility] Neutrophils/100 WBC (Bld) 68.4 % 38.0 - 82.0 % [facility] Nucleated RBC/100 WBC (Bld) [Ratio] 0 % [facility] Platelet mean volume (Bld) [Entitic vol] 9.9 fL 9.0 - 12.7 fL [facility] Platelets (Bld) [#/Vol] 421 10*3/uL 140 - 440 10*3/uL [facility] RBC (Bld) [#/Vol] 3.62 10*6/uL Low 4.40 - 5.9 0 10*6/uL [facility] WBC (Bld) [#/Vol] 9.5 10*3/uL 3.6 - 10.7 10*3/uL [facility] CBC WITH AUTO DIFFERENTIALon 04-25-2025 Basophils (Bld) [#/Vol] 0.0 10*3/uL Normal 0.0-0.2 [facility] Comment on above: Performed By: #### L [id number] ####Senior Regulatory Affairs Specialist: BIANCA NICHOLS ([phone])[facility] ([address] Basophils/100 WBC (Bld) 0.4 % Normal 0.0-2.0 [facility] Comment on above: Performed By: #### L [id number] ####Senior Regulatory Affairs Specialist: BIANCA NICHOLS ([phone])[facility])[address] [place] [address] Eosinophils (Bld) [#/Vol] 0.1 10*3/uL Normal 0.0-0.5 [facility] Comment on above: Performed By: #### L [id number] ####Senior Regulatory Affairs Specialist: BIANCA NICHOLS ([phone])[facility])[address] [place] [address] Eosinophils/100 WBC (Bld) 0.8 % Normal 0.0-6.0 [facility] Comment on above: Performed By: #### L [id number] ####Senior Regulatory Affairs Specialist: BIANCA NICHOLS ([phone])[address] Erythrocyte distribution width (RBC) [Ratio] 14.8 % Normal 11.5-15.0 [facility] Comment on above: Performed By: #### L [id number] ####Senior Regulatory Affairs Specialist: BIANCA NICHOLS ([phone])[facility])[address] [place] [address] Hematocrit (Bld) [Volume fraction] 32.6 % Low 40.0-52.0 [facility] Comment on above: Performed By: #### L [id number] ####Senior Regulatory Affairs Specialist: BIANCA NICHLOS ([phone])[address] Hemoglobin (Bld) [Mass/Vol] 10.4 g/dL Low 13.0-18.0 [facility] Comment on above: Performed By: #### L [id number] ####Senior Regulatory Affairs Specialist: BIANCA NICHLOS ([phone])[facility])[address] [place] [address] IMMATURE GRANS % 0.4 % Normal 0.0-2.0 [facility] Comment on above: Performed By: #### L [id number] ####Senior Regulatory Affairs Specialist: BIANCA NICHOLS ([phone])[address] IMMATURE GRANS ABSOLUTE 0.0 10*3/uL Normal <0.1 [facility] Comment on above: Performed By: #### L [id number] ####Senior Regulatory Affairs Specialist: BIANCA NICHOLS ([phone])[facility])[address] [place] [address] Lymphocytes (Bld) [#/Vol] 2.0 10*3/uL Normal 1.0-4.3 [facility] Comment on above: Performed By: #### L [id number] ####Senior Regulatory Affairs Specialist: BIANCA NICHOLS ([phone])[facility])[address] [place] [address] Lymphocytes/100 WBC (Bld) 20.7 % Normal 15.0-45.0 [facility] Comment on above: Performed By: #### L [id number] ####Senior Regulatory Affairs Specialist: BIANCA NICHOLS ([phone])[facility])[address] [place] [address] MCH (RBC) [Entitic mass] 28.7 pg Normal 26.0-34.0 [facility] Comment on above: Performed By: #### L [id number] ####Senior Regulatory Affairs Specialist: BIANCA NICHOLS ([phone])[facility])[address] [place] [address] MCHC 31.9 % Normal 30.5-36.0 [facility] Comment on above: Performed By: #### L [id number] ####Senior Regulatory Affairs Specialist: BIANCA NICHOLS ([phone])[facility])[address] [place] [address] MCV (RBC) [Entitic vol] 90.1 fL Normal 77.0-99.0 [facility] Comment on above: Performed By: #### L [id number] ####Senior Regulatory Affairs Specialist: BIANCA NICHOLS ([phone])[facility])[address] [place] [address] Monocytes (Bld) [#/Vol] 0.9 10*3/uL Normal 0.0-0.9 [facility] Comment on above: Performed By: #### L [id number] ####Senior Regulatory Affairs Specialist: BIANCA NICHOLS ([phone])[facility] ([facility])[address] [place] [address] Monocytes/100 WBC (Bld) 9.3 % Normal 5.0-13.0 [facility] Comment on above: Performed By: #### L [id number] ####Senior Regulatory Affairs Specialist: BIANCA NICHOLS ([phone])[facility] ([facility])[address] [place] [address] NEUTROPHILS ABSOLUTE 6.5 10*3/uL Normal 1.8-7.5 [facility] Comment on above: Performed By: #### L [id number] ####Senior Regulatory Affairs Specialist: BIANCA NICHOLS ([phone])[facility] ([facility])[address] [place] [address] Neutrophils/100 WBC (Bld) 68.4 % Normal 38.0-82.0 [facility] Comment on above: Performed By: #### L [id number] ####Senior Regulatory Affairs Specialist: BIANCA NICHOLS ([phone])[facility] ([facility])[address] [place] [address] NRBC 0.0 /100 WBCs Normal 0.0-2.0 [facility] Comment on above: Performed By: #### L [id number] ####Senior Regulatory Affairs Specialist: BIANCA NICHOLS ([phone])[facility] ([facility])[address] [place] [address] Platelet mean volume (Bld) [Entitic vol] 9.9 fL Normal 9.0-12.7 [facility] Comment on above: Performed By: #### L [id number] ####Senior Regulatory Affairs Specialist: BIANCA NICHOLS ([phone])[facility] ([facility])[address] [place] [address] [place] Platelets (Bld) [#/Vol] 421 10*3/uL Normal 140-440 [facility] Comment on above: Performed By: #### L [id number] ####Senior Regulatory Affairs Specialist: BIANCA NICHOLS ([phone])[facility])[address] [place] [address] RBC (Bld) [#/Vol] 3.62 10*6/uL Low 4.40-5.90 [facility] Comment on above: Performed By: #### L [id number] ####Senior Regulatory Affairs Specialist: BIANCA NICHOLS ([phone])[facility])[address] [place] [address] WBC (Bld) [#/Vol] 9.5 10*3/uL Normal 3.6-10.7 [facility] Comment on above: Performed By: #### L [id number] ####Senior Regulatory Affairs Specialist: BIANCA NICHOLS ([phone])[facility])[address] [place] [address] Consulton 04-25-2025 Consult [facility] Wound Care CONSULT Note Anmol Reynolds AGE: 64 y.o. GENDER: male : 1960 Subjective: HISTORY of PRESENT ILLNESS HPI Anmol Reynolds is a 64 y.o. male who presents for a wound consult. HPI: Anmol is a 64 y.o. male with past medical history below who presents with chief complaint listed above. Patient sent to [facility] ER [facility] staff to leave the patient's wounds on his sacrum were worsening and becoming infected. Patient is a paraplegic for the last 4 years after surgical complication with Dr. Ashley at [facility]. ER workup was significant for sodium of [...] effort, no respiratory distress, no cyanosis Sacrum: [id number]. Wound bed with pink tissue noted. Small serosanguinous drainage. Periwound fragile. 04/25/25 Left ischium: [id number]. Wound bed with eschar, slough and red [...] to follow Recommend to follow up at [facility] Outpatient wound care center after [...] and a (more content not included)... Normal [facility] - Chemistry and C hemistry - challengeon 04-25-2025 Glucose [Mass/Vol] 220 mg/dL High 70 - 100 mg/dL [facility] Glucose [Mass/Vol] 226 mg/dL High 70 - 100 mg/dL [facility] Glucose [Mass/Vol] 281 mg/dL High 70 - 100 mg/dL [facility] Glucose [Mass/Vol] 187 mg/dL High 70 - 100 mg/dL [facility] - Microbiology an d Antimicrobial susceptibilityOrdered By: Joy York on 04-25-2025 Bacteria identified Aer cx Nom (Unsp spec) Moderate enteric gosia present [facility] Bacteria identified Aer cx Nom (Unsp spec) Moderate Staphylococcus aureus Abnormal [facility] Comment on above: Methicillin-resistan t Staphylococcus aureus (MRSA) No Panel Informationon 04-25 Interpretation and review of laboratory results Abnormal [facility] Performed by: [facility], [address] [place] [address], [facility] [address] CLIA ID: [id number] [facility] Interpretation and review of laboratory results Abnormal [facility] Performed by: [facility], [address] [place] [address], [facility] [address] CLIA ID: [id number] [facility] Interpretation and review of laboratory results Abnormal [facility] Performed by: [facility], [address] [place] [address], [facility] [address] CLIA ID: [id number] [facility] Interpretation and review of laboratory results Abnormal [facility] Performed by: [facility], [address] [place] [address], [facility] [address] CLIA ID: [id number] [facility] [employer] No Panel InformationOrdered By: Genaro Kelly on 04-25-2025 Case Report Surgical Pathology Case: [id number] Authorizing Provider: Kaela Durand MD Collected: 04/24/2025 0806 Ordering Location: [facility] MAIN OR Received: 04/24/2025 1209 Pathologist: Genaro Kelly MD PhD Specimen: LEFT ISCHIAL BONE [facility] [employer] Work Phone: Clinical Information t6qylDFiSAPwzNPvXPJ wM TrwtvPmCESviWDlI3Amlp hsHCfxKR8gBK9tpQkkfZM ngWCnWEUaZvYlv7caw821 vSNqd0onMLOJLQdkFBUAQ Sw8cScxM10dj7X2BdqgY2 xyZWQwXGdyZWVuMFxibHV sNIe2BHYovRVcgrPqVgMw HRHoiNRsxLF1TDVkVP5pl mfkOXwmROycKFRimcK8EU HwsRDqG7QnMRMhLY2ytca tOZI5BXbfBDTtCGI5IkOx DEQga1Odowk1LtUokIYiw 5DeY7wdlqXmsToepuBmgn 9uZVxjbGJyZHJsXGJyZHJ xx94bMYZkNjWsdxCeDoHt sg4cxcXvP7rmwtJeIrrzz dYuzq9rFAhohCVlmdZnnT NrG1uhjHOCsOU9mZJnA0z 3N6tvcSg8XWSdRBRbbWc8 NTgyMFxwYXJkXGludGJsX NYiBOrqPOAdFbZkU2BdLH 60hGPbPYHvcGTqDK2rkRG fnDhmhBh6nDMnUP68wODa IHNpdGUgKEhDQykgLSBNO KQtFOniP9tFCV4nRE3GAV 2iX2FkaEvfgoSjuRjpv8k qoQBuk3PwzHKpuPQbz6rf wSDhNHH8MLCpUXPex17gM CXoRmWaptsdIlAjag5wtt SwY9ubymQcrizpfvYmov5 uZVxjbGJyZHJiXGJyZHJu k01gRESkblPdoILskBlyb QI1y9xbXGWmT0zfsAvEtI K5mGZ8TiHdI2BhzRl0KRZ xJEAgjpMptK69DmjmVNGc i6V7xoYnnE2zaGZ1JO5nM RFdY2Q5C1RwvSOnZKakt1 1sHTI3LYezUXSnKCuYVzm aPPYWBEkxOYNlDGeUK9Cz BMYvW62yRFXlpDnhhN83E zfjhz09WBWuscCnyPOxhB == [employer] Work Phone: Comment s5totYCiWRClkVFxLFNu M NxlfbBcEXNbeJNsM2Kdmd vyBDpxZH4oWK2hxVupfQJ kvJBcPIKuLuOkx6tyh836 xZSjb1syKZCHJDhyCVDYU Mx6xFhzL42ei9F6DqquC1 1eiFIvQSQ1BQRnATEsfCM aXJWwSOS4EHSnpOPsM9ei BHKvZP2elsciTLqcTBggV XAoyCS4LQFrqHXcQ3AmTS BfKLtvZMWfrgw7RjWeJy3 vdGVyeTcyMFxwYXJkXHBs YWluXGZzMjAgRHIuIFMuI HGop24fe67bKWFtffO9at MuXHBhcn0= [facility] Work Phone: Disclaimer b7hctDRyVLQtaQZaAtDr M ILyCNKxc5rpSOHkpUGbIh EwMzNcZnRuYmpcdWMxXGR cAfAiy1ufx062kCLsv4qb JLDzKpB5mFPiTSZcA52rG DJAB484RMUpRCkkb0bzw5 WuJGAdgKSyo7S1XWQEQOz oRIMWQHg6yTryH43fb3Y1 ZotvE5ziPAArGYWbJ6ZeF F2tEITcDyk5ZRI0ZAN1EL XvQWEeS1AnOX8dKUTruLQ vDOw8e6vbsOrvYAHxKGT9 p2zwILyodgItVC7nro7mf Jk1t5hqczNrUZWqNGMthH FZIWFhE6ZqeVatCt1vgHr 5dWufBnifIUE0Qqk5VY9t hb64rze0iIwzVQNebwaoP zU0VWklOJHvzaudQMk6VZ zhEBXavDH5SVIqgLUiP1M rZEQsMA5grzh6MAS2QMlg TOZwKpS1APIyfIXzCXLzu NekIAuaq275NKG5XlBiVA 0nL4Gbl5Q7mR0lqEXnKGW nvDMvVmEtNZBwfg6epFWd XPyii3OmIKW9toT8gGUbb NZfVTSdAQ38Anfny1KoWs wuTQL5FXQcnqLww2Vuo4j dCdWgoqLkD8gtS9DhFGOe WTCeFKApRhFdzxHts7Kog 2SaoVEgpPw5w9npXBRvGB AhpWntx4vjBXL3KRWgR6J 3zANkg7nyJIdvQUDjkGB7 uoS1UYVuxWKlU6GtuH2sN XFuQN2nput2f7ijPNE5JL nuFIHaOeK8ljS2IBZjrVJ vKTDcuBpjHJieu278MAV5 ArSkGHVra2BbP5OvpWucZ 54lhShjS08jSCLitFvyyP 5jhYxsyO9vXsTfFgGuEZt xbFxwbGFpblxmMVxmczE2 EAcwpwrxETIsXUqpW4evJ tXlTMJmmCodDIbdy4HgAG BjPAPtEHXwDQkcF5clfC2 moolpSBdbYEJjvFmcu6hi ErOfrVH8LE2hxlKoPCPgs WtrofY7epAabZetrR2wbK 5flDmhcS5vvQYvoAH5aul sIGluIHNpdHUgaHlicmlk aMccbPzdbgkaoU7aQGG6l MGuNAZ6tXQlCMOjFFVoQJ QupQ69of5kiICeasEzM2P mY5WiaNUucKpzKzgrrFXc jRJtPp1tvLVcVU3rGQIdz WDsT8FfCB8zLRTukgpmAW IgVGhlIHVzZSBvZiBvbmU gq6ZwwW7iKASlFLUbBF76 cxDvmaI7vHObYQWumuAcr GVzdHMgaXMgcmVndWxhdG LwEKTnAUXmQUJxPHo0kUX ev5OzL5sojNAidoElD5Kk gFVnHQSTBG7jDUbbr9Gjd MRwpQZzy3YwGTOqKAXmkU 4kWBItQV3wRKYuRTswWXH ezpNihe4pbvBzWIRiYUVq M3UwgquedQmeuiOsZUIdz q7kwtOyKGA5HHMzCXCmwH kuqLWcpDMhPUKqndB8k0L nZJSfv4EdT6SqsIUuNMPm zKRjZAO9b6WxeP1yUEjaz TZaVEQsTU2glCCqSSCjJE NsZWFyZWQgYnkgdGhlIFV XCHKdl5KaTX9cDPWlcXvo XSLqwN7al2XdXSAwa55gI EZEQSkuIFRoZSBGREEgaG FzIGRldGVybWluZWQgdGh wvXXxsUBlSLAuIVGvLC9h YHYlzxZtwRKav8JrmZWyp fDwu6GsnnWgFIUeNRT4Qn BccGFyXHBhciBBbGwgaW1 xmU1dk5MbjJ2gNAxcvdNc wBWnYb9wxIHqFU9lQSUoy mFmZmluIGVtYmVkZGVkIH Eyq9Z6LL6wOBJpgr9scqx vyCBpvO9ncPXrvsJxXD8y AI4tS1U0vYTsUKDxddYqs 7rhCKw0xVHlGAAwdFHnwX ZjCfejASR6MLPnJIC1bhK sacLiRUIwaUzeuWU0wJBy CLLzBICzPSOhFV51C4Ugu 8SxA6eyXS19ZTBsYMJwBV GethDvb3ibZDCcm3lhVIT vtNXmC2XhQGXxyGBmbvpt SySkAZQ8DOHuBOC0dNQxM SEbM2VfuMAstWCnpP43YH 7qyDE6GL9yFOZ2IEsosT0 zIoUPwH74ee1dfAV3f5Gf CH4kZ0OcQAOqm9P5gnKjP SPuRD2raIUwLPZeITWazC lkYXRlZCBvbiBkZWNhbGN rAubfVBA1xIMddLSvKyXO VBD1tBDdUHUfc0QbJQCsE IWdbwGpniUdAHZqHGM2fO RoAPAvrYIpx42bO5r2BH9 nxLtrMEYojCMeEMGay5Ew aWBwoFw0aYTaHaEcUUifL LJjFMalxVs6hBH9UZ6mWN LxC6MyQ9kxpCReCDFeEPT cxJRwzz7xgHIdqR== [employer] Work Phone: [employer] j2bcaLSvICGpvIGuFRHr M XbozcUkZFEzzIZqP3Qdjr atRYtjXQ3uAF1ncJizuWH yaNTaIBIbSdZkr4gxb161 iLLvk2qbXJWIFEcgIZRBW Nt8hBfhT33uy3W8HrhsY2 5wcZRyVGU7INZzEWDzeBG fYZYmLUW3IKKblMKiV1gx KLXhIS9ngqrrRSpuADelT EWjmGX5ASNvaYGcG4FvFD YmUOhaZSVdekn0NeKdDx4 vdGVyeTcyMFxwYXJkXHBs OBcnGNPnPyXnYaRvTZk8B ABcqQ2jEy7jqCZpkL3czN XfKHbgAFHvpJZkbNHln7Y oaWFsIGJvbmUiIGlzIGEg jBkqpv2wSWPfnT1avSvab bZlFhDqg78sRVDiPRIfaS Kas0NkYNBiQQ50LRrlYL9 6QCtbQW3dQCJwLwRuTMfm IHNwZWNpbWVuIGlzIGVud FncLCl2FSH0Cc7xxUPpCG FlicHdfyTaX4Wka0W2oJV vMRREf5NbDlBrUl0xEUQz YWwgaXMgbmVlZGVkIGZvc pR4uIIpj8EfS9tlNO9hDV BccGFyfQ== [employer] Work Phone: Pathologist Interpretation Location [facility], [address] [place] [address], [facility] [address], CLIA: [id number]; Joint Commission: [id number]; CAP: [id number] [facility] Work Phone: Pathology report final diagnosis Narrative x8dewFZfYAFloZLiMDJjB YfwwyHoKNJwsAOmN5Fhrd xpDScmGE2rCN4suZzylWL irLYjUFFhKnWlb5xyq497 iLYfg9qtIBHURLuyQPDVB Fo9tLotO96uq8F7VtxuX4 7mqMIxZRX1VUQtLYYtfOD pGWElOSZ5WVGfiINqH8bh IYXhGL1bqvpiEVztCVabF FYcdVY7XZVmnENkT7QxZF YjMSpzIHFjwml4UkFvRw3 vdGVyeTcyMFxwYXJkXHBs YWluXGZzMjAgTEVGVCBJU 8SVFSBMDREFEbZtBZQCO5 BTWTpccGFyXGVuZGFzaCA lZD2DFCUCLZTuH8FRZhZT PFCSR35jTGdCS2DGSQYXJ ZJVPUIZCG0CBUDMIiEOD1 7vQ4VjPv4JAFBEWWJRNIF UBiqIJ1UCGFYPZ2ZVLUNB Y5VXO99DORzVQTpNNlgaM XJ[address] [facility] [employer] Work Phone: [facility] [employer] Phone: 30on 04-24-2025 30 Problem: Pain - [...] maintained or improved Outcome: Progressing Normal [facility] [id number] 04-24-2025 [id number] [facility]. SW reviewed chart. Pt is a LTC resident of [facility]. [place] is responsible for pt transportation for medical appointments. . Normal [facility] BASIC METABOLIC PANELon 07-2 Anion gap [Moles/Vol] 8 mmol/L Normal 3-13 [facility] Comment on above: Performed By: #### L AB15 ####Senior Regulatory Affairs Specialist: BIANCA NICHOLS ([phone])[facility] ([facility])[address] [place] [address] Calcium [Mass/Vol] 8.4 mg/dL Low 8.8-10.0 [facility] Comment on above: Performed By: #### L AB15 ####Senior Regulatory Affairs Specialist: BIANCA NICHOLS ([phone])[facility] ([facility])[address] [place] [address] Chloride [Moles/Vol] 101 mmol/L Normal 98-107 [facility] Comment on above: Performed By: #### L AB15 ####Senior Regulatory Affairs Specialist: BIANCA NICHOLS ([phone])[facility] [place] [address] CO2 [Moles/Vol] 27 mmol/L Normal 23-31 [facility] Comment on above: Performed By: #### L AB15 ####Senior Regulatory Affairs Specialist: BIANCA NICHOLS ([phone])[facility] ([facility])[address] [place] [address] Creatinine [Mass/Vol] 0.59 mg/dL Low 0.72-1.25 [facility] Comment on above: Performed By: #### L AB15 ####Senior Regulatory Affairs Specialist: BIANCA NICHOLS ([phone])[facility] ([facility])[address] [place] [address] GLOMERULAR FILTRATION RATE ML/MIN/1.73 SQ M.PREDICTED >90.0 Normal >60.0 [facility] Comment on above: Result Comment: Calc ulation based on the Chronic Kidney Disease Epidemiology Collaboration (CKD-EPI) equation refit without adjustment for race Performed By: #### L AB15 ####Senior Regulatory Affairs Specialist: BIANCA NICHOLS ([phone])[facility] ([facility])[address] [place] [address] Glucose [Mass/Vol] 113 mg/dL Normal 82-115 [facility] Comment on above: Performed By: #### L [id number] ####Senior Regulatory Affairs Specialist: BIANCA NICHOLS ([phone])[facility])[address] [place] [address] Potassium [Moles/Vol] 4.0 mmol/L Normal 3.5-5.1 [facility] Comment on above: Result Comment: [facility] potassium values may be up to 0.5 mmol/L lower than serum values. Performed By: #### L [id number] ####Senior Regulatory Affairs Specialist: BIANCA NICHOLS ([phone])[facility] ([facility])[address] [place] [address] Sodium [Moles/Vol] 136 mmol/L Normal 136-145 [facility] Comment on above: Performed By: #### L [id number] ####Senior Regulatory Affairs Specialist: BIANCA NICHOLS ([phone])[facility] ([facility])[address] [place] [address] Urea nitrogen [Mass/Vol] 7 mg/dL Low 9-23 [facility] Comment on above: Performed By: #### L [id number] ####Senior Regulatory Affairs Specialist: BIANCA NICHOLS ([phone])[facility])[address] [place] [address] Basic metabolic 1998 panelon 04-24-2025 Anion gap [Moles/Vol] 8 mmol/L 3 - 13 mmol/L [facility] Calcium [Mass/Vol] 8.4 mg/dL Low 8.8 - 10. 0 mg/dL [facility] Chloride [Moles/Vol] 101 mmol/L 98 - 10 7 mmol/L [facility] CO2 [Moles/Vol] 27 mmol/L 23 - 31 mmol/L [facility] Creatinine [Mass/Vol] 0.59 mg/dL Low 0.72 - 1.25 mg/dL [facility] GFR/1.73 sq M.predicted (S/P/Bld) [Vol rate/Area] - PINF [facility] Comment on above: Calculation based on the Chronic Kidney Disease Epidemiology Collaboration (CKD-EPI) equation refit without adjustment for race Glucose [Mass/Vol] 113 mg/dL 82 - 115 mg/dL [facility] Interpretation and review of laboratory results Abnormal [facility] Potassium [Moles/Vol] 4 mmol/L 3.5 - 5.1 mmol/L [facility] Comment on above: Plasma potassium leonie ues may be up to 0.5 mmol/L lower than serum values. Sodium [Moles/Vol] 136 mmol/L 136 - 145 mmol/L [facility] Urea nitrogen [Mass/Vol] 7 mg/dL Low 9 - 23 mg/dL [facility] CBC W Auto Differential pane l (Bld)on 04-24-2025 Basophils (Bld) [#/Vol] 0.1 10*3/uL 0.0 - 0.2 10*3/uL [facility] Basophils/100 WBC (Bld) 0.6 % 0.0 - 2.0 % [facility] Eosinophils (Bld) [#/Vol] 0.4 10*3/uL 0.0 - 0.5 10*3/uL [facility] Eosinophils/100 WBC (Bld) 4 % 0.0 - 6.0 % [facility] Erythrocyte distribution width (RBC) [Ratio] 14.9 % 11.5 - 15.0 % [facility] Hematocrit (Bld) [Volume fraction] 32.8 % Low 40.0 - 52.0 % [facility] Hemoglobin (Bld) [Mass/Vol] 10.6 g/dL Low 13.0 - 18.0 g/dL [facility] Immature granulocytes (Bld) [#/Vol] 0 10*3/uL NINF - 0.1 10*3/uL [facility] [employer] Immature granulocytes/100 WBC (Bld) 0.4 % 0.0 - 2.0 % [facility] Interpretation and review of laboratory results Abnormal [facility] Lymphocytes (Bld) [#/Vol] 2.2 10*3/uL 1.0 - 4.3 10*3/uL [facility] Lymphocytes/100 WBC (Bld) 23.9 % 15.0 - 45.0 % [facility] MCH (RBC) [Entitic mass] 28.8 pg 26. 0 - 34.0 pg [facility] MCHC (RBC) [Mass/Vol] 32.3 % 30.5 - 36.0 % [facility] MCV (RBC) [Entitic vol] 89.1 fL 77.0 - 99.0 fL [facility] Monocytes (Bld) [#/Vol] 0.7 10*3/uL 0.0 - 0.9 10*3/uL [facility] Monocytes/100 WBC (Bld) 8 % 5.0 - 13.0 % [facility] Neutrophils (Bld) [#/Vol] 5.9 10*3/uL 1.8 - 7.5 10*3/uL [facility] Neutrophils/100 WBC (Bld) 63.1 % 38.0 - 82.0 % [facility] Nucleated RBC/100 WBC (Bld) [Ratio] 0 % [facility] Platelet mean volume (Bld) [Entitic vol] 9.8 fL 9.0 - 12.7 fL [facility] Platelets (Bld) [#/Vol] 367 10*3/uL 140 - 440 10*3/uL [facility] RBC (Bld) [#/Vol] 3.68 10*6/uL Low 4.40 - 5.9 0 10*6/uL [facility] WBC (Bld) [#/Vol] 9.3 10*3/uL 3.6 - 10.7 10*3/uL [facility] CBC WITH AUTO DIFFERENTIALon 04-24-2025 Basophils (Bld) [#/Vol] 0.1 10*3/uL Normal 0.0-0.2 [facility] Comment on above: Performed By: #### L [id number] ####Senior Regulatory Affairs Specialist: BIANCA INCHOLS ([phone])[facility] ([address] Basophils/100 WBC (Bld) 0.6 % Normal 0.0-2.0 [facility] Comment on above: Performed By: #### L [id number] ####Senior Regulatory Affairs Specialist: BIANCA NICHOLS ([phone])[facility])[address] [place] [address] Eosinophils (Bld) [#/Vol] 0.4 10*3/uL Normal 0.0-0.5 [facility] Comment on above: Performed By: #### L [id number] ####Senior Regulatory Affairs Specialist: BIANCA [phone])[facility])[address] [place] [address] Eosinophils/100 WBC (Bld) 4.0 % Normal 0.0-6.0 [facility] Comment on above: Performed By: #### L [id number] ####Senior Regulatory Affairs Specialist: BIANCA NICHOLS ([phone])[facility])[address] [place] [address] Erythrocyte distribution width (RBC) [Ratio] 14.9 % Normal 11.5-15.0 [facility] Comment on above: Performed By: #### L [id number] ####Senior Regulatory Affairs Specialist: BIANCA NICHOLS ([phone])[facility])[address] [place] [address] Hematocrit (Bld) [Volume fraction] 32.8 % Low 40.0-52.0 [facility] Comment on above: Performed By: #### L [id number] ####Senior Regulatory Affairs Specialist: BIANCA NICHOLS ([phone])[facility])[address] [place] [address] Hemoglobin (Bld) [Mass/Vol] 10.6 g/dL Low 13.0-18.0 [facility] Comment on above: Performed By: #### L [id number] ####Senior Regulatory Affairs Specialist: BIANCA NICHOLS ([phone])[facility])[address] [place] [address] IMMATURE GRANS % 0.4 % Normal 0.0-2.0 [facility] Comment on above: Performed By: #### L [id number] ####Senior Regulatory Affairs Specialist: BIANCA NICHOLS ([phone])[facility])[address] [place] [address] IMMATURE GRANS ABSOLUTE 0.0 10*3/uL Normal <0.1 [facility] Comment on above: Performed By: #### L [id number] ####Senior Regulatory Affairs Specialist: BIANCA NICHOLS ([phone])[facility])[address] [place] [address] Lymphocytes (Bld) [#/Vol] 2.2 10*3/uL Normal 1.0-4.3 [facility] Comment on above: Performed By: #### L [id number] ####Senior Regulatory Affairs Specialist: BIANCA NICHOLS ([phone])[facility])[address] [place] [address] Lymphocytes/100 WBC (Bld) 23.9 % Normal 15.0-45.0 [facility] Comment on above: Performed By: #### L [id number] ####Senior Regulatory Affairs Specialist: BIANCA NICHOLS ([phone])[facility])[address] [place] [address] MCH (RBC) [Entitic mass] 28.8 pg Normal 26.0-34.0 [facility] Comment on above: Performed By: #### L [id number] ####Senior Regulatory Affairs Specialist: BIANCA NICHOLS ([phone])[facility])[address] [place] [address] MCHC 32.3 % Normal 30.5-36.0 [facility] Comment on above: Performed By: #### L [id number] ####Senior Regulatory Affairs Specialist: BIANCA NICHOLS ([phone])[facility])[address] [place] [address] MCV (RBC) [Entitic vol] 89.1 fL Normal 77.0-99.0 [facility] Comment on above: Performed By: #### L [id number] ####Senior Regulatory Affairs Specialist: BIANCA NICHOLS ([phone])[facility])[address] [place] [address] Monocytes (Bld) [#/Vol] 0.7 10*3/uL Normal 0.0-0.9 [facility] Comment on above: Performed By: #### L [id number] ####Senior Regulatory Affairs Specialist: BIANCA NICHOLS ([phone])[facility])[address] [place] [address] Monocytes/100 WBC (Bld) 8.0 % Normal 5.0-13.0 [facility] Comment on above: Performed By: #### L [id number] ####Senior Regulatory Affairs Specialist: BIANCA NICHOLS ([phone])[facility] ([facility])[address] [place] [address] NEUTROPHILS ABSOLUTE 5.9 10*3/uL Normal 1.8-7.5 [facility] Comment on above: Performed By: #### L [id number] ####Senior Regulatory Affairs Specialist: BIANCA NICHOLS ([phone])[facility] ([facility])[address] [place] [address] Neutrophils/100 WBC (Bld) 63.1 % Normal 38.0-82.0 [facility] Comment on above: Performed By: #### L [id number] ####Senior Regulatory Affairs Specialist: BIANCA NICHOLS ([phone])[facility] ([facility])[address] [place] [address] NRBC 0.0 /100 WBCs Normal 0.0-2.0 [facility] Comment on above: Performed By: #### L [id number] ####Senior Regulatory Affairs Specialist: BIANCA NICHOLS ([phone])[facility] ([facility])[address] [place] [address] Platelet mean volume (Bld) [Entitic vol] 9.8 fL Normal 9.0-12.7 [facility] Comment on above: Performed By: #### L [id number] ####Senior Regulatory Affairs Specialist: BIANCA NICHOLS ([phone])[facility] ([facility])[address] [place] [address] Platelets (Bld) [#/Vol] 367 10*3/uL Normal 140-440 [facility] Comment on above: Performed By: #### L [id number] ####Senior Regulatory Affairs Specialist: BIANCA NICHOLS ([phone])[facility])[address] [place] [address] RBC (Bld) [#/Vol] 3.68 10*6/uL Low 4.40-5.90 [facility] Comment on above: Performed By: #### L [id number] ####Senior Regulatory Affairs Specialist: BIANCA NICHOLS ([phone])[facility])[address] [place] [address] WBC (Bld) [#/Vol] 9.3 10*3/uL Normal 3.6-10.7 [facility] Comment on above: Performed By: #### L [id number] ####Senior Regulatory Affairs Specialist: BIANCA NICHOLS ([phone])[facility])[address] [place] [address] CULTURE ANAEROBICon 04-24-20 CULTURE ANAEROBIC ANAEROBIC CULTURE Reference No growth at 5 days [ S = SUSCEPTIBLE R = RESISTANT I = INTERMEDIATE S-DD = Susceptible-dose dependent NS = Non-susceptible NO = No Interpretation ] Normal [facility] Comment on above: Performed By: #### L [id number] #### Senior Regulatory Affairs Specialist: BIANCA NICHOLS ([phone]) [facility]) [address] [place] [address] CULTURE ANAEROBIC ANAEROBIC CULTURE Reference Mixed aerobic and anaerobic bacteria present. CLOSTRIDIUM RAMOSUM Few Clostridium ramosum (A) [ S = SUSCEPTIBLE R = RESISTANT I = INTERMEDIATE S-DD = Susceptible-dose dependent NS = Non-susceptible NO = No Interpretation ] Normal [facility] Comment on above: Performed By: #### L [id number] #### Senior Regulatory Affairs Specialist: BIANCA NICHOLS ([phone]) [facility] ([facility]) [address] [place] [address] CULTURE, AEROBIC BACTERIA WI TH GRAM STAINon [...] NO = No Interpretation ] Normal [facility] Comment on above: Performed By: #### L [id number] #### Senior Regulatory Affairs Specialist: BIANCA NICHOLS ([phone]) [facility]) [address] [place] [address] CULTURE, AEROBIC BACTERIA WITH GRAM STAIN CULTURE [...] Non-susceptible NO = No Interpretation ] Normal [facility] Comment on above: Performed By: #### L [id number] #### Senior Regulatory Affairs Specialist: BIANCA NICHOLS ([phone]) [facility] ([facility]) [address] [place] [address] Laboratory - Chemistry and C hemistry - challengeon 04-24-2025 Glucose [Mass/Vol] 348 mg/dL High 70 - 100 mg/dL [facility] Glucose [Mass/Vol] 407 mg/dL High 70 - 100 mg/dL [facility] Glucose [Mass/Vol] 259 mg/dL High 70 - 100 mg/dL [facility] Glucose [Mass/Vol] 135 mg/dL High 70 - 100 mg/dL [facility] Glucose [Mass/Vol] 126 mg/dL High 70 - 100 mg/dL [facility] Laboratory - Drug toxicology on 04-24-2025 Vancomycin trough [Mass/Vol] 12 ug/mL [facility] No Panel Informationon 04-24 Interpretation and review of laboratory results Abnormal [facility] Performed by: [facility], [address] [place] [address], [facility] [address] CLIA ID: [id number] [facility] [employer] [facility] Interpretation and review of laboratory results Abnormal [facility] Performed by: [facility], [address] [place] [address], [facility] [address] CLIA ID: [id number] [facility] Interpretation and review of laboratory results Abnormal [facility] Performed by: [facility], [address] [place] [address], [place] [address] CLIA ID: [id number] [facility] [employer] [facility] Interpretation and review of laboratory results Abnormal [facility] Performed by: [facility], [address] [place] [address], [facility] [address] CLIA ID: [id number] [facility] [employer] [facility] Interpretation and review of laboratory results Abnormal [facility] Performed by: [facility], [address] [place] [address], [facility] [address] CLIA ID: [id number] [facility] Nursing Noteon 04-24-2025 Nursing Note Patient states nobod y here to update Normal [facility] Op Noteon 04-24-2025 Op Note - Attestation signed by Kaela Durand MD at 04/26/2025 4:55 PM I attest that I was present and supervised the entire procedure. I agree with the operative details as documented in the resident's note. Excisional debridement of necrotic ischial wound, total wound measurement 7 x 4 cm = 28 cm2 [CPT 34013, 00532] Open biopsy of left ischium [CPT 51194] This note is electronically signed by: Kaela [...] achieved with bovie electrocautery. Two pieces of [place] patch were placed in the wound bed. Betadine soak Kerlix was then packed in the wound. Dressings were applied overtop. The sponge, instrument and needle counts were correct at the end of the case. The patient was extubated and transferred to PACU in stable condition. 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 Nurse states she ordered [...] (kg): 82.41 kg Total Energy Requirements (kcals/day): 4008-8896 (25-30 kcals/kg) Weight Used for Protein Requirements: [...] (mmHg): (more content not included)... Normal [facility] Progress Note Patient out of room at time of visit Wound care to follow up at a later time JOE Diaz CNP [facility] Progress Note - Attestation signed by Kaela [...] MD Division of Trauma Department of Surgery [facility] [1] Patient Active Problem List Diagnosis Nicotine [...] s/p surgical complication with Dr. Ashley at [facility], HLD, HTN, MDD, OA, a-fib on [...] 24 hours) (more content not included)... Normal [employer] [facility] VANCOMYCIN, AUC TIMED DOSING on 04-24-2025 VANCOMYCIN, AUC 12.0 ug/mL Normal [facility] Comment on above: Result Comment: [facility] COMMENTS: Please draw random level at least >2 hours after the end of the last vancomycin infusion, or 30-minutes before next infusion. Toxicity is seen at concentrations >80-100 ug/mL Therapeutic (Peak) range: 20-40 Therapeutic (Trough) range: 5-10 Performed By: #### L [id number] ####Senior Regulatory Affairs Specialist: BIANCA NICHOLS ([phone])[facility] ([facility])[address] [place] [address] Vancomycin trough [Mass/Vol] on 04-24-2025 Toxicity is seen at concentrations >80-100 ug/mL Therapeutic (Peak) range: 20-40 Therapeutic (Trough) range: 5-10 [facility] 30on 04-23-2025 30 Problem: Pain - Adul t Goal: Verbalizes/displays adequate comfort level or baseline comfort level Outcome: Progressing Problem: Safety - Adult Goal: Free from fall injury Outcome: Progressing Problem: Chronic Conditions and Co-morbidities Goal: Patient's chronic conditions and co-morbidity symptoms are monitored and maintained or improved Outcome: Progressing Normal [facility] 30 Problem: Pain - Adul t Goal: [...] maintained or improved Outcome: Progressing Normal [facility] BASIC METABOLIC PANELon 04-05 Anion gap [Moles/Vol] 7 mmol/L Normal 3-13 [facility] Comment on above: Performed By: #### L [id number] ####Senior Regulatory Affairs Specialist: BIANCA NICHOLS ([phone])[facility] ([facility])[address] [place] [address] Calcium [Mass/Vol] 8.1 mg/dL Low 8.8-10.0 [facility] Comment on above: Performed By: #### L [id number] ####Senior Regulatory Affairs Specialist: BIANCA NICHOLS ([phone])[facility] ([facility])[address] [place] [address] [place] Chloride [Moles/Vol] 105 mmol/L Normal 98-107 [facility] Comment on above: Performed By: #### L [id number] ####Senior Regulatory Affairs Specialist: BIANCA NICHOLS ([phone])[facility])[address] [place] [address] CO2 [Moles/Vol] 21 mmol/L Low 23-31 [facility] Comment on above: Performed By: #### L [id number] ####Senior Regulatory Affairs Specialist: BIANCA NICHOLS ([phone])[facility])[address] [place] [address] Creatinine [Mass/Vol] 0.54 mg/dL Low 0.72-1.25 [facility] Comment on above: Performed By: #### L [id number] ####Senior Regulatory Affairs Specialist: BIANCA NICHOLS ([phone])[facility])[address] [place] [address] GLOMERULAR FILTRATION RATE ML/MIN/1.73 SQ M.PREDICTED >90.0 Normal >60.0 [facility] Comment on above: Result Comment: Calc ulation based on the Chronic Kidney Disease Epidemiology Collaboration (CKD-EPI) equation refit without adjustment for race Performed By: #### L [id number] ####Senior Regulatory Affairs Specialist: BIANCA NICHOLS ([phone])[facility])[address] [place] [address] Glucose [Mass/Vol] 133 mg/dL High 82-115 [facility] Comment on above: Performed By: #### L [id number] ####Senior Regulatory Affairs Specialist: BIANCA NICHOLS ([phone])[facility])[address] [place] [address] Potassium [Moles/Vol] 3.8 mmol/L Normal 3.5-5.1 [facility] Comment on above: Result Comment: [facility] potassium values may be up to 0.5 mmol/L lower than serum values. Performed By: #### L [id number] ####Senior Regulatory Affairs Specialist: BIANCA NICHOLS ([phone])[facility])[address] [place] [address] Sodium [Moles/Vol] 133 mmol/L Low 136-145 [facility] Comment on above: Performed By: #### L [id number] ####Senior Regulatory Affairs Specialist: BIANCA NICHOLS ([phone])[facility])[address] [place] [address] Urea nitrogen [Mass/Vol] 8 mg/dL Low 9-23 [facility] Comment on above: Performed By: #### L [id number] ####Senior Regulatory Affairs Specialist: BIANCA NICHOLS ([phone])[facility] ([address] Basic metabolic 1998 panelon 04-23-2025 Anion gap [Moles/Vol] 7 mmol/L 3 - 13 mmol/L [facility] Calcium [Mass/Vol] 8.1 mg/dL Low 8.8 - 10. 0 mg/dL [facility] Chloride [Moles/Vol] 105 mmol/L 98 - 10 7 mmol/L [facility] CO2 [Moles/Vol] 21 mmol/L Low 23 - 31 mmol/L [facility] Creatinine [Mass/Vol] 0.54 mg/dL Low 0.72 - 1.25 mg/dL [facility] GFR/1.73 sq M.predicted (S/P/Bld) [Vol rate/Area] - PINF [facility] Comment on above: Calculation based on the Chronic Kidney Disease Epidemiology Collaboration (CKD-EPI) equation refit without adjustment for race Glucose [Mass/Vol] 133 mg/dL High 82 - 115 mg/dL [facility] Interpretation and review of laboratory results Abnormal [facility] Potassium [Moles/Vol] 3.8 mmol/L 3.5 - 5.1 mmol/L [facility] Comment on above: Plasma potassium leonie ues may be up to 0.5 mmol/L lower than serum values. Sodium [Moles/Vol] 133 mmol/L Low 136 - 145 mmol/L [facility] Urea nitrogen [Mass/Vol] 8 mg/dL Low 9 - 23 mg/dL [facility] CBC W Auto Differential pane l (Bld)on 04-23-2025 Basophils (Bld) [#/Vol] 0.1 10*3/uL 0.0 - 0.2 10*3/uL [facility] Basophils/100 WBC (Bld) 0.5 % 0.0 - 2.0 % [facility] Eosinophils (Bld) [#/Vol] 0.3 10*3/uL 0.0 - 0.5 10*3/uL [facility] Eosinophils/100 WBC (Bld) 3.6 % 0.0 - 6.0 % [facility] Erythrocyte distribution width (RBC) [Ratio] 14.9 % 11.5 - 15.0 % [facility] Hematocrit (Bld) [Volume fraction] 30.7 % Low 40.0 - 52.0 % [facility] Hemoglobin (Bld) [Mass/Vol] 9.9 g/dL Low 13.0 - 18.0 g/dL [facility] Immature granulocytes (Bld) [#/Vol] 0 10*3/uL NINF - 0.1 10*3/uL [facility] Immature granulocytes/100 WBC (Bld) 0.4 % 0.0 - 2.0 % [facility] Interpretation and review of laboratory results Abnormal [facility] Lymphocytes (Bld) [#/Vol] 2.2 10*3/uL 1.0 - 4.3 10*3/uL [facility] Lymphocytes/100 WBC (Bld) 23.6 % 15.0 - 45.0 % [facility] MCH (RBC) [Entitic mass] 28.5 pg 26. 0 - 34.0 pg [facility] MCHC (RBC) [Mass/Vol] 32.2 % 30.5 - 36.0 % [facility] MCV (RBC) [Entitic vol] 88.5 fL 77.0 - 99.0 fL [facility] Monocytes (Bld) [#/Vol] 0.8 10*3/uL 0.0 - 0.9 10*3/uL [facility] Monocytes/100 WBC (Bld) 8.7 % 5.0 - 13.0 % [facility] Neutrophils (Bld) [#/Vol] 5.9 10*3/uL 1.8 - 7.5 10*3/uL [facility] Neutrophils/100 WBC (Bld) 63.2 % 38.0 - 82.0 % [facility] Nucleated RBC/100 WBC (Bld) [Ratio] 0 % [facility] Platelet mean volume (Bld) [Entitic vol] 9.7 fL 9.0 - 12.7 fL [facility] Platelets (Bld) [#/Vol] 352 10*3/uL 140 - 440 10*3/uL [facility] RBC (Bld) [#/Vol] 3.47 10*6/uL Low 4.40 - 5.9 0 10*6/uL [facility] WBC (Bld) [#/Vol] 9.4 10*3/uL 3.6 - 10.7 10*3/uL [facility] CBC WITH AUTO DIFFERENTIALon 04-23-2025 Basophils (Bld) [#/Vol] 0.1 10*3/uL Normal 0.0-0.2 [facility] Comment on above: Performed By: #### L [id number] ####Senior Regulatory Affairs Specialist: BIANAC NICHOLS ([phone])[facility])[address] [place] [address] Basophils/100 WBC (Bld) 0.5 % Normal 0.0-2.0 [facility] Comment on above: Performed By: #### L [id number] ####Senior Regulatory Affairs Specialist: BIANCA NICHOLS ([phone])[facility])[address] [place] [address] Eosinophils (Bld) [#/Vol] 0.3 10*3/uL Normal 0.0-0.5 [facility] Comment on above: Performed By: #### L [id number] ####Senior Regulatory Affairs Specialist: BIANCA NICHOLS ([phone])[facility])[address] [place] [address] Eosinophils/100 WBC (Bld) 3.6 % Normal 0.0-6.0 [facility] Comment on above: Performed By: #### L [id number] ####Senior Regulatory Affairs Specialist: BIANCA NICHOLS ([phone])[facility])[address] [place] [address] Erythrocyte distribution width (RBC) [Ratio] 14.9 % Normal 11.5-15.0 [facility] Comment on above: Performed By: #### L [id number] ####Senior Regulatory Affairs Specialist: BIANCA [phone])[facility])[address] [place] [address] Hematocrit (Bld) [Volume fraction] 30.7 % Low 40.0-52.0 [facility] Comment on above: Performed By: #### L [id number] ####Senior Regulatory Affairs Specialist: BIANCA [phone])[facility])[address] [place] [address] Hemoglobin (Bld) [Mass/Vol] 9.9 g/dL Low 13.0-18.0 [facility] Comment on above: Performed By: #### L [id number] ####Senior Regulatory Affairs Specialist: BIANCA NICHOLS ([phone])[facility])[address] [place] [address] IMMATURE GRANS % 0.4 % Normal 0.0-2.0 [facility] Comment on above: Performed By: #### L [id number] ####Senior Regulatory Affairs Specialist: BIANCA NICHOLS ([phone])[facility])[address] [place] [address] IMMATURE GRANS ABSOLUTE 0.0 10*3/uL Normal <0.1 [facility] Comment on above: Performed By: #### L [id number] ####Senior Regulatory Affairs Specialist: BIANCA NICHOLS ([phone])[facility])[address] [place] [address] Lymphocytes (Bld) [#/Vol] 2.2 10*3/uL Normal 1.0-4.3 [facility] Comment on above: Performed By: #### L [id number] ####Senior Regulatory Affairs Specialist: BIANCA NICHOLS ([phone])[address] Lymphocytes/100 WBC (Bld) 23.6 % Normal 15.0-45.0 [facility] Comment on above: Performed By: #### L [id number] ####Senior Regulatory Affairs Specialist: BIANCA NICHOLS ([phone])[facility])[address] [place] [address] MCH (RBC) [Entitic mass] 28.5 pg Normal 26.0-34.0 [facility] Comment on above: Performed By: #### L [id number] ####Senior Regulatory Affairs Specialist: BIANCA NICHOLS ([phone])[facility])[address] [place] [address] MCHC 32.2 % Normal 30.5-36.0 [facility] Comment on above: Performed By: #### L [id number] ####Senior Regulatory Affairs Specialist: BIANCA NICHOLS ([phone])[facility])[address] [place] [address] MCV (RBC) [Entitic vol] 88.5 fL Normal 77.0-99.0 [facility] Comment on above: Performed By: #### L [id number] ####Senior Regulatory Affairs Specialist: BIANCA NICHOLS ([phone])[facility] ([facility])[address] [place] [address] Monocytes (Bld) [#/Vol] 0.8 10*3/uL Normal 0.0-0.9 [facility] Comment on above: Performed By: #### L [id number] ####Senior Regulatory Affairs Specialist: BIANCA NICHOLS ([phone])[facility])[address] [place] [address] Monocytes/100 WBC (Bld) 8.7 % Normal 5.0-13.0 [facility] Comment on above: Performed By: #### L [id number] ####Senior Regulatory Affairs Specialist: BIANCA NICHOLS ([phone])[facility])[address] [place] [address] NEUTROPHILS ABSOLUTE 5.9 10*3/uL Normal 1.8-7.5 [facility] Comment on above: Performed By: #### L [id number] ####Senior Regulatory Affairs Specialist: BIANCA NICHOLS ([phone])[facility])[address] [place] [address] Neutrophils/100 WBC (Bld) 63.2 % Normal 38.0-82.0 [facility] Comment on above: Performed By: #### L [id number] ####Senior Regulatory Affairs Specialist: BIANCA NICHOLS ([phone])[facility])[address] [place] [address] NRBC 0.0 /100 WBCs Normal 0.0-2.0 [facility] Comment on above: Performed By: #### L [id number] ####Senior Regulatory Affairs Specialist: BIANCA NICHOLS ([phone])[facility] ([facility])[address] [place] [address] Platelet mean volume (Bld) [Entitic vol] 9.7 fL Normal 9.0-12.7 [facility] Comment on above: Performed By: #### L [id number] ####Senior Regulatory Affairs Specialist: BIANCA NICHOLS ([phone])[facility] ([facility])[address] [place] [address] Platelets (Bld) [#/Vol] 352 10*3/uL Normal 140-440 [facility] Comment on above: Performed By: #### L [id number] ####Senior Regulatory Affairs Specialist: BIANCA NICHOLS ([phone])[facility] ([facility])[address] [place] [address] RBC (Bld) [#/Vol] 3.47 10*6/uL Low 4.40-5.90 [facility] Comment on above: Performed By: #### L [id number] ####Senior Regulatory Affairs Specialist: BIANCA NICHOLS ([phone])[facility] ([facility])[address] [place] [address] WBC (Bld) [#/Vol] 9.4 10*3/uL Normal 3.6-10.7 [facility] Comment on above: Performed By: #### L [id number] ####Senior Regulatory Affairs Specialist: BIANCA NICHOLS ([phone])[facility] ([facility])[address] [place] [address] Laboratory - Chemistry and C hemistry - challengeon 04-23-2025 Glucose [Mass/Vol] 189 mg/dL High 70 - 100 mg/dL [facility] Glucose [Mass/Vol] 119 mg/dL High 70 - 100 mg/dL [facility] Glucose [Mass/Vol] 231 mg/dL High 70 - 100 mg/dL [facility] Glucose [Mass/Vol] 217 mg/dL High 70 - 100 mg/dL [facility] No Panel Informationon 04-23 Interpretation and review of laboratory results Abnormal [facility] Performed by: [place] [id number] CLIA ID: [id number] [facility] Interpretation and review of laboratory results Abnormal [facility] Performed by: [address] [address] CLIA ID: [id number] [facility] Interpretation and review of laboratory results Abnormal [facility] Performed by: [address] [address] CLIA ID: [id number] [facility] Interpretation and review of laboratory results Abnormal [facility] Performed by: [facility], [address] [place] [address] CLIA ID: [id number] [facility] 3004-22-2025 30 Problem: Pain - Adul t [...] maintained or improved Outcome: Progressing Normal [facility] 30 Problem: Pain - Adul t Goal: [...] maintained or improved Outcome: Progressing Normal [facility] 3604-22-2025 36 Name of Caller: Milady Contact Physician requesting Consult: Alberto Boogie AALIYAH / attending provider when ordered Dr. Georgette Bueno [phone] Patient Location (facility name, room, bed number): [facility] Room 465 Patient Diagnosis/Reason for Consult: Wound infection, on Cefepime Provider being paged: Dr. Castillo Time page was sent: 8:29 AM Department of provider being paged: Infectious Disease Page Content: Received a call from [address] and spoke to Milady [phone] she was asked to send out a consult from Alberto Boogie AALIYAH / attending provider when ordered Dr. Georgette Bueno [phone], is requesting a consult. Information that was provided is: wound infection, on cefepime. PT in [facility] Room 465 B Message sent via Secure Chat [facility] CT PELVIS W IV CONTRASTon CT PELVIS [...] Electronically Signed Date/Time: 04/22/2025 12:31 AM EDT [facility] CT Pelvis W contrast Poli 1. Findings [...] Electronically Signed Date/Time: 04/22/2025 12:31 AM EDT [facility] Patient Name: ANMOL REYNOLDS : [...] and hip muscles (paralysis patient). 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 History of Present Illness: 64 M with h/o MRSA lumbar epidural abscess from 2021, s/p decompression and fusion, but left paraplegic with neurogenic bladder. Recent hospitlaizaitons for PNA as well as [facility] Proteus UTI/ sepsis recently at [facility]. He had a sacral decubitus ulcer for years, was already improving but worsened since most recent prolonged hospitalization once more in February 2025. Buttock ulcer developed that time as well. Patient stabilized, completed IV antibiotics, and was doing well except at [facility] increased concern for worsening wound infection, [...] Resource Strain: Low Risk (04/24/2023) Received from [facility] Overall Financial Resource Strain (CARDIA) [...] to (more content not included)... Normal [facility] Consult - Attestation signed by Meliton Carrero [...] appropriate exam and evaluation Meliton Carrero MD, [facility] Trauma, Surgical Critical Care & Acute Care Surgery Division of Trauma Department of Surgery [facility] [1] Patient Active Problem List Diagnosis Nicotine [...] Department of General Surgery Surgical Service - [facility] Resident Consult Note 04/22/2025 CHIEF COMPLAINT: Chief Complaint Patient presents with Wound Infection Per EMS pt was sent here from the [place] for wound infections. Pt has two wound [...] s/p surgical complication with Dr. Ashley at [facility], HLD, HTN, MDD, OA, a-fib on [...] reviewed signific (more content not included)... Normal [facility] Consult Pharmacy Managed Vancomycin Dosing Service Consult [...] creatinine, and vancomycin levels interfaced automatically to [employer] and data has been analyzed and interpreted. [...] 04/22/25 TIME: 2:39 AM Nina Workman [facility] Clinical Pharmacist Available via Secure Chat Normal [facility] Laboratory - Chemistry and C hemistry - challengeon 04-22-2025 Glucose [Mass/Vol] 157 mg/dL High 70 - 100 mg/dL [facility] Glucose [Mass/Vol] 250 mg/dL High 70 - 100 mg/dL [facility] Glucose [Mass/Vol] 356 mg/dL High 70 - 100 mg/dL [facility] Glucose [Mass/Vol] 277 mg/dL High 70 - 100 mg/dL [facility] Average glucose Estimated from glycated hemoglobin (Bld) [Mass/Vol] 180 mg/dL [facility] Laboratory - Drug toxicology on 04-22-2025 Vancomycin trough [Mass/Vol] 12.4 ug/mL [facility] Laboratory - Hematology and Cell countson 04-22-2025 HbA1c (Bld) [Mass fraction] 7.9 % [facility] Comment on above: Normal less than 5.7 % Prediabetes 5.7% to 6.4% Diabetes 6.5% or higher --HgbA1C levels may not be accurate in patients who have renal disease, received recent blood transfusions, are anemic, or who have dyshemoglobinemia. No Panel Informationon 04-22 Interpretation and review of laboratory results Abnormal [facility] [employer] Performed by: [address] [address] CLIA ID: [id number] [facility] Interpretation and review of laboratory results Abnormal [facility] Performed by: [address] [address] CLIA ID: [id number] [facility] Interpretation and review of laboratory results Abnormal [facility] Performed by: [address] [address] CLIA ID: [id number] [facility] Interpretation and review of laboratory results Abnormal [facility] Performed by: [address] [address] CLIA ID: [id number] [facility] Interpretation and review of laboratory results Abnormal [facility] HbA1c values of 5.7-6.4 percent indicate an increased risk for developing diabetes mellitus. HbA1c values greater than or equal to 6.5 percent are diagnostic of diabetes mellitus. For diagnosis of diabetes in individuals without unequivocal hyperglycemia, results should be confirmed by repeat testing. [facility] VANCOMYCIN, AUC TIMED DOSING on 04-22-2025 VANCOMYCIN, AUC 12.4 ug/mL Normal [facility] Comment on above: Result Comment: [facility] COMMENTS: Please draw random level at least >2 hours after the end of the last vancomycin infusion, or 30-minutes before next infusion. Toxicity is seen at concentrations >80-100 ug/mL Therapeutic (Peak) range: 20-40 Therapeutic (Trough) range: 5-10 Performed By: #### L [id number] #### Senior Regulatory Affairs Specialist: BIANCA NICHOLS ([phone]) [facility] ([facility]) [address] [place] [address] Vancomycin trough [Mass/Vol] on 04-22-2025 Toxicity is seen at concentrations >80-100 ug/mL Therapeutic (Peak) range: 20-40 Therapeutic (Trough) range: 5-10 [facility] Wound Cultureon 04-22-2025 WC L [place]OCK[place] Wound Culture Copy of report sent to Infection Control Printer [id number] [facility] Meth. resistant Staph. aureus Amount Growth [...] SYN-S S Vancomycin Islt HARINDER <=0.5 Normal [facility] Comment on above: Performed By: #### L 101.9900, L100.0500, L500.4050, L501.6710 #### [facility] [address] [place], [place], [address] BLOOD CULTUREon 04-21-2025 Bacteria identified Cx Nom (Bld) BLOOD CULTURE Reference No growth at 5 days ORDER COMMENTS: Blood Collection Site: Left PICC Purple Lumen [ S = SUSCEPTIBLE R = RESISTANT I = INTERMEDIATE S-DD = Susceptible-dose dependent NS = Non-susceptible NO = No Interpretation ] Normal [facility] Comment on above: Performed By: #### L [id number] #### Senior Regulatory Affairs Specialist: BIANCA NICHOLS ([phone]) [facility]) [address] [place] [address] Bacteria identified Cx Nom (Bld) BLOOD CULTURE Reference No growth at 5 days ORDER COMMENTS: Blood Collection Site: Right Forearm [ S = SUSCEPTIBLE R = RESISTANT I = INTERMEDIATE S-DD = Susceptible-dose dependent NS = Non-susceptible NO = No Interpretation ] [facility] Comment on above: Performed By: #### L [id number] #### Senior Regulatory Affairs Specialist: BIANCA NICHOLS ([phone]) [facility] ([facility]) [address] [place] [address] CBC W Auto Differential pane l (Bld)on 04-21-2025 Basophils (Bld) [#/Vol] 0.1 10*3/uL 0.0 - 0.2 10*3/uL [facility] Basophils/100 WBC (Bld) 0.6 % 0.0 - 2.0 % [facility] Eosinophils (Bld) [#/Vol] 0.3 10*3/uL 0.0 - 0.5 10*3/uL [facility] Eosinophils/100 WBC (Bld) 2.3 % 0.0 - 6.0 % [facility] Erythrocyte distribution width (RBC) [Ratio] 14.9 % 11.5 - 15.0 % [facility] Hematocrit (Bld) [Volume fraction] 35.6 % Low 40.0 - 52.0 % [facility] Hemoglobin (Bld) [Mass/Vol] 11.7 g/dL Low 13.0 - 18.0 g/dL [facility] Immature granulocytes (Bld) [#/Vol] 0.1 10*3/uL High NINF - 0.1 10*3/uL [facility] Immature granulocytes/100 WBC (Bld) 0.5 % 0.0 - 2.0 % [facility] Interpretation and review of laboratory results Abnormal [facility] Lymphocytes (Bld) [#/Vol] 2.3 10*3/uL 1.0 - 4.3 10*3/uL [facility] Lymphocytes/100 WBC (Bld) 18.1 % 15.0 - 45.0 % [facility] MCH (RBC) [Entitic mass] 29 pg 26. 0 - 34.0 pg [facility] MCHC (RBC) [Mass/Vol] 32.9 % 30.5 - 36.0 % [facility] MCV (RBC) [Entitic vol] 88.3 fL 77.0 - 99.0 fL [facility] Monocytes (Bld) [#/Vol] 1 10*3/uL High 0.0 - 0.9 10*3/uL [facility] Monocytes/100 WBC (Bld) 7.8 % 5.0 - 13.0 % [facility] Neutrophils (Bld) [#/Vol] 8.8 10*3/uL High 1.8 - 7.5 10*3/uL [facility] Neutrophils/100 WBC (Bld) 70.7 % 38.0 - 82.0 % [facility] Nucleated RBC/100 WBC (Bld) [Ratio] 0 % [facility] Platelet mean volume (Bld) [Entitic vol] 9.8 fL 9.0 - 12.7 fL [facility] Platelets (Bld) [#/Vol] 372 10*3/uL 140 - 440 10*3/uL [facility] RBC (Bld) [#/Vol] 4.03 10*6/uL Low 4.40 - 5.9 0 10*6/uL [facility] WBC (Bld) [#/Vol] 12.5 10*3/uL High 3.6 - 10.7 10*3/uL [facility] CBC WITH AUTO DIFFERENTIALon 04-21-2025 Basophils (Bld) [#/Vol] 0.1 10*3/uL Normal 0.0-0.2 [facility] Comment on above: Performed By: #### L [id number], [id number] ####Senior Regulatory Affairs Specialist: BIANCA NICHOLS ([phone])[facility])[address] [place] [address] Basophils/100 WBC (Bld) 0.6 % Normal 0.0-2.0 [facility] Comment on above: Performed By: #### L AB322, [id number] ####Senior Regulatory Affairs Specialist: BIANCA NICHOLS ([phone])[facility])[address] [place] [address] Eosinophils (Bld) [#/Vol] 0.3 10*3/uL Normal 0.0-0.5 [facility] Comment on above: Performed By: #### L AB322, [id number] ####Senior Regulatory Affairs Specialist: BIANCA NICHOLS ([phone])[address] Eosinophils/100 WBC (Bld) 2.3 % Normal 0.0-6.0 [facility] Comment on above: Performed By: #### L AB322, [id number] ####Senior Regulatory Affairs Specialist: BIANCA [phone])[facility])[address] [place] [address] Erythrocyte distribution width (RBC) [Ratio] 14.9 % Normal 11.5-15.0 [facility] Comment on above: Performed By: #### L AB322, [id number] ####Senior Regulatory Affairs Specialist: BIANCA [phone])[facility])[address] [place] [address] Hematocrit (Bld) [Volume fraction] 35.6 % Low 40.0-52.0 [facility] Comment on above: Performed By: #### Mina AB322, [id number] ####Senior Regulatory Affairs Specialist: BIANCA NICHOLS ([phone])[address] Hemoglobin (Bld) [Mass/Vol] 11.7 g/dL Low 13.0-18.0 [facility] Comment on above: Performed By: #### Mina AB322, [id number] ####Senior Regulatory Affairs Specialist: BIANCA NICHOLS ([phone])[address] IMMATURE GRANS % 0.5 % Normal 0.0-2.0 [facility] Comment on above: Performed By: #### Mina AB322, [id number] ####Senior Regulatory Affairs Specialist: BIANCA NICHOLS ([phone])[facility])[address] [place] [address] IMMATURE GRANS ABSOLUTE 0.1 10*3/uL High <0.1 [facility] Comment on above: Performed By: #### Mina AB322, [id number] ####Senior Regulatory Affairs Specialist: BIANCA NICHOLS ([phone])[address] Lymphocytes (Bld) [#/Vol] 2.3 10*3/uL Normal 1.0-4.3 [facility] Comment on above: Performed By: #### Mina AB322, [id number] ####Senior Regulatory Affairs Specialist: BIANCA NICHOLS ([phone])[address] Lymphocytes/100 WBC (Bld) 18.1 % Normal 15.0-45.0 [facility] Comment on above: Performed By: #### Mina AB322, [id number] ####Senior Regulatory Affairs Specialist: BIANCA [phone])[facility] ([facility])[address] [place] [address] MCH (RBC) [Entitic mass] 29.0 pg Normal 26.0-34.0 [facility] Comment on above: Performed By: #### Mina AB322, [id number] ####Senior Regulatory Affairs Specialist: BIANCA NICHOLS ([phone])[facility])[address] [place] [address] MCHC 32.9 % Normal 30.5-36.0 [facility] Comment on above: Performed By: #### Mina AB322, [id number] ####Senior Regulatory Affairs Specialist: BIANCA NICHOLS ([phone])[facility])[address] [place] [address] MCV (RBC) [Entitic vol] 88.3 fL Normal 77.0-99.0 [facility] Comment on above: Performed By: #### Mina AB322, [id number] ####Senior Regulatory Affairs Specialist: BIANCA NICHOLS ([phone])[facility] ([facility])[address] [place] [address] Monocytes (Bld) [#/Vol] 1.0 10*3/uL High 0.0-0.9 [facility] Comment on above: Performed By: #### Mina AB322, [id number] ####Senior Regulatory Affairs Specialist: BIANCA NICHOLS ([phone])[facility])[address] [place] [address] Monocytes/100 WBC (Bld) 7.8 % Normal 5.0-13.0 [facility] Comment on above: Performed By: #### Mina AB322, [id number] ####Senior Regulatory Affairs Specialist: BIANCA NICHOLS ([phone])[facility])[address] [place] [address] NEUTROPHILS ABSOLUTE 8.8 10*3/uL High 1.8-7.5 [facility] Comment on above: Performed By: #### Mina AB322, [id number] ####Senior Regulatory Affairs Specialist: BIANCA [phone])[facility])[address] [place] [address] Neutrophils/100 WBC (Bld) 70.7 % Normal 38.0-82.0 [facility] Comment on above: Performed By: #### Mina AB322, [id number] ####Senior Regulatory Affairs Specialist: BIANCA NICHOLS ([phone])[facility] ([facility])[address] [place] [address] NRBC 0.0 /100 WBCs Normal 0.0-2.0 [facility] Comment on above: Performed By: #### Mina AB322, [id number] ####Senior Regulatory Affairs Specialist: BIANCA NICHOLS ([phone])[facility] ([facility])[address] [place] [address] Platelet mean volume (Bld) [Entitic vol] 9.8 fL Normal 9.0-12.7 [facility] Comment on above: Performed By: #### Mina AB322, [id number] ####Senior Regulatory Affairs Specialist: BIANCA NICHOLS ([phone])[facility] ([facility])[address] [place] [address] Platelets (Bld) [#/Vol] 372 10*3/uL Normal 140-440 [facility] Comment on above: Performed By: #### Mina AB322, [id number] ####Senior Regulatory Affairs Specialist: BIANCA NICHOLS ([phone])[facility] ([facility])[address] [place] [address] RBC (Bld) [#/Vol] 4.03 10*6/uL Low 4.40-5.90 [facility] Comment on above: Performed By: #### Mina AB322, [id number] ####Senior Regulatory Affairs Specialist: BIANCA NICHOLS ([phone])[facility] ([facility])[address] [place] [address] [place] WBC (Bld) [#/Vol] 12.5 10*3/uL High 3.6-10.7 [facility] Comment on above: Performed By: #### Mina AB322, [id number] ####Senior Regulatory Affairs Specialist: BIANCA NICHOLS ([phone])[facility] ([facility])[address] [place] [address] COMPREHENSIVE METABOLIC PANE [place] 04-21-2025 Albumin [Mass/Vol] 2.3 g/dL Low 3.4-4.8 [facility] Comment on above: Performed By: #### L AB17 ####Senior Regulatory Affairs Specialist: BIANCA NICHOLS ([phone])[facility] ([facility])[address] [place] [address] ALP [Catalytic activity/Vol] 116 U/L Normal 40-150 [facility] Comment on above: Performed By: #### L AB17 ####Senior Regulatory Affairs Specialist: BIANCA NICHOLS ([phone])[facility])[address] [place] [address] ALT [Catalytic activity/Vol] 6 U/L Normal <40 [facility] Comment on above: Performed By: #### L AB17 ####Senior Regulatory Affairs Specialist: BIANCA NICHOLS ([phone])[facility])[address] [place] [address] Anion gap [Moles/Vol] 10 mmol/L Normal 3-13 [facility] Comment on above: Performed By: #### L AB17 ####Senior Regulatory Affairs Specialist: BIANCA NICHOLS ([phone])[facility])[address] [place] [address] AST [Catalytic activity/Vol] 13 U/L Normal <34 [facility] Comment on above: Performed By: #### L AB17 ####Senior Regulatory Affairs Specialist: BIANCA NICHOLS ([phone])[facility])[address] [place] [address] Bilirubin [Mass/Vol] 0.5 mg/dL Normal <1.2 [facility] Comment on above: Performed By: #### L AB17 ####Senior Regulatory Affairs Specialist: BIANCA NICHOLS ([phone])[facility])[address] [place] [address] Calcium [Mass/Vol] 8.5 mg/dL Low 8.8-10.0 [facility] Comment on above: Performed By: #### L AB17 ####Senior Regulatory Affairs Specialist: BIANCA NICHOLS ([phone])[facility] ([facility])[address] [place] [address] Chloride [Moles/Vol] 99 mmol/L Normal 98-107 [facility] Comment on above: Performed By: #### L AB17 ####Senior Regulatory Affairs Specialist: BIANCA NICHOLS ([phone])[facility])[address] [place] [address] CO2 [Moles/Vol] 21 mmol/L Low 23-31 [facility] Comment on above: Performed By: #### L AB17 ####Senior Regulatory Affairs Specialist: BIANCA NICHOLS ([phone])[facility])[address] [place] [address] Creatinine [Mass/Vol] 0.65 mg/dL Low 0.72-1.25 [facility] Comment on above: Performed By: #### L AB17 ####Senior Regulatory Affairs Specialist: BIANCA NICHOLS ([phone])[facility])[address] [place] [address] GLOMERULAR FILTRATION RATE ML/MIN/1.73 SQ M.PREDICTED >90.0 Normal >60.0 [facility] Comment on above: Result Comment: Calc ulation based on the Chronic Kidney Disease Epidemiology Collaboration (CKD-EPI) equation refit without adjustment for race Performed By: #### L AB17 ####Senior Regulatory Affairs Specialist: BIANCA NICHOLS ([phone])[facility])[address] [place] [address] Glucose [Mass/Vol] 202 mg/dL High 82-115 [facility] Comment on above: Performed By: #### L AB17 ####Senior Regulatory Affairs Specialist: BIANCA NICHOLS ([phone])[facility])[address] [place] [address] Potassium [Moles/Vol] 4.3 mmol/L Normal 3.5-5.1 [facility] Comment on above: Result Comment: [facility] potassium values may be up to 0.5 mmol/L lower than serum values. Performed By: #### L AB17 ####Senior Regulatory Affairs Specialist: BIANCA NICHOLS ([phone])[address] Protein [Mass/Vol] 7.6 g/dL Normal 6.4-8.3 [facility] Comment on above: Performed By: #### L AB17 ####Senior Regulatory Affairs Specialist: BIANCA NICHOLS ([phone])[address] Sodium [Moles/Vol] 130 mmol/L Low 136-145 [facility] Comment on above: Performed By: #### L AB17 ####Senior Regulatory Affairs Specialist: BIANCA NICHOLS ([phone])[address] Urea nitrogen [Mass/Vol] 10 mg/dL Normal 9-23 [facility] Comment on above: Performed By: #### L AB17 ####Senior Regulatory Affairs Specialist: BIANCA NICHOLS ([phone])[address] CULTURE ANAEROBICon 04-21-20 25 CULTURE ANAEROBIC ANAEROBIC CULTURE (A ) Reference ANAEROBIC GRAM NEGATIVE BACILLI, NOT B. FRAGILIS Moderate Anaerobic Gram-negative bacilli, not B. fragilis (A) [ S = SUSCEPTIBLE R = RESISTANT I = INTERMEDIATE S-DD = Susceptible-dose dependent NS = Non-susceptible NO = No Interpretation ] Normal [facility] Comment on above: Performed By: #### L AB39 #### Senior Regulatory Affairs Specialist: BIANCA NICHOLS ([phone]) [address] CULTURE, AEROBIC BACTERIA WI TH GRAM [...] Non-susceptible NO = No Interpretation ] Normal [facility] Comment on above: Performed By: #### L AB39 #### Senior Regulatory Affairs Specialist: BIANCA NICHOLS ([phone]) [facility] ([facility]) [address] [place] [address] Comprehensive metabolic 1998 panelon 04-21-2025 Albumin [Mass/Vol] 2.3 g/dL Low 3.4 - 4.8 g/dL [facility] ALP [Catalytic activity/Vol] 116 U/L 40 - 150 U/L [facility] ALT [Catalytic activity/Vol] 6 U/L NINF - 40 U/L [facility] Anion gap [Moles/Vol] 10 mmol/L 3 - 13 mmol/L [facility] AST [Catalytic activity/Vol] 13 U/L NINF - 34 U/L [facility] Bilirubin [Mass/Vol] 0.5 mg/[facility]/dL [facility] Calcium [Mass/Vol] 8.5 mg/dL Low 8.8 - 10. 0 mg/dL [facility] Chloride [Moles/Vol] 99 mmol/L 98 - 10 7 mmol/L [facility] CO2 [Moles/Vol] 21 mmol/L Low 23 - 31 mmol/L [facility] Creatinine [Mass/Vol] 0.65 mg/dL Low 0.72 - 1.25 mg/dL [facility] GFR/1.73 sq M.predicted (S/P/Bld) [Vol rate/Area] - PINF [facility] Comment on above: Calculation based on the Chronic Kidney Disease Epidemiology Collaboration (CKD-EPI) equation refit without adjustment for race Glucose [Mass/Vol] 202 mg/dL High 82 - 115 mg/dL [facility] Interpretation and review of laboratory results Abnormal [facility] Potassium [Moles/Vol] 4.3 mmol/L 3.5 - 5.1 mmol/L [facility] Comment on above: Plasma potassium leonie ues may be up to 0.5 mmol/L lower than serum values. Protein [Mass/Vol] 7.6 g/dL 6.4 - 8.3 g/dL [facility] Sodium [Moles/Vol] 130 mmol/L Low 136 - 145 mmol/L [facility] Urea nitrogen [Mass/Vol] 10 mg/dL 9 - 23 mg/dL [facility] ED Nursing Noteon 04-21-2025 ED Nursing Note Placed new meplix pads on open wounds on sacrum. Pictures updated in pt's chart. Normal [facility] ED Provider Noteon ED Provider Note EMERGENCY DEPARTMENT ENCOUNTER Pt Name: Anmol Reynolds Birthdate 1960 Date of evaluation: 04/21/2025 ED Provider: Chele León MD CHIEF COMPLAINT Chief Complaint Patient presents with Wound Infection Per EMS pt was sent here from the [place] for wound infections. Pt has two wound [...] Ex (more content not included)... Normal [facility] ESR (Bld) [Velocity]Ordered By: Grecia Hutton on 04-21-2025 Interpretation and review of laboratory results Abnormal [facility] HEMOGLOBIN A1Con 04-21-2025 Glucose [Mass/Vol] 180 mg/dL Normal [facility] Comment on above: Result Comment: SOSA Barney [...] repeat testing. Performed By: #### L AB90 ####Senior Regulatory Affairs Specialist: BIANCA NICHOLS ([phone])[facility] ([facility])[address] [place] [address] HEMOGLOBIN A1C 7.9 %HbA1C High <5.7 [facility] Comment on above: Result Comment: Norm al less than 5.7% Prediabetes 5.7% to 6.4% Diabetes 6.5% or higher --HgbA1C levels may not be accurate in patients who have renal disease, received recent blood transfusions, are anemic, or who have dyshemoglobinemia. Performed By: #### L AB90 ####Senior Regulatory Affairs Specialist: BIANCA NICHOLS ([phone])[facility] ([facility])[address] [place] [address] LACTIC ACID WITH REFLEXon Lactate [Moles/Vol] 1.1 mmol/L Normal 0.5-2.2 [facility] Comment on above: Performed By: #### L [id number] ####Senior Regulatory Affairs Specialist: BIANCA NICHOLS ([phone])[facility] ([facility])[address] [place] [address] Laboratory - Chemistry and C hemistry - challengeon 04-21-2025 Lactate [Moles/Vol] 1.1 mmol/L 0.5 - 2. 2 mmol/L [facility] - Hematology and Cell countsOrdered By: Grecia Hutton on 04-21-2025 ESR (Bld) [Velocity] 78 mm/h High [facility] No Panel Informationon 04-21 Interpretation and review of laboratory results Normal [facility] Progress Noteon 04-21-2025 Progress Note Patient: Anmol [...] EMS pt was sent here from the [place] for wound infections. Pt has two wound [...] Family History[3] SOCIAL HISTORY Social History[4] SCREENINGS [place] Coma Scale Best Eye Response: Spontaneous Best Verbal Response: Oriented Best Motor Response: Follows commands [place] (more content not included)... Normal [facility] SEDIMENTATION RATE, AUTOMATE Don 04-21-2025 SEDIMENTATION RATE, ERYTHROCYTE 78 mm/hr High 0-10 [facility] Comment on above: Performed By: #### L [id number], [id number] ####Senior Regulatory Affairs Specialist: BIANCA NICHOLS ([phone])[facility] ([address] Urine Cultureon 04-20-2025 [facility] Providencia stuartii [place] Count >100,000 Providencia stuartii: REACTION Ampicillin Islt HARINDER >=32 Ampicillin+Sulbac Islt HARINDER R Cefepime Islt HARINDER <=0.12 S cefTRIAXone Islt HARINDER <=0.25 S Ciprofloxacin Islt HARINDER >=4 R Gentamicin Islt HARINDER R levoFLOXacin Islt HARINDER >=8 R Meropenem Islt HARINDER 1 S Nitrofurantoin Islt HARINDER 128 R Pip+Tazo Islt HARINDER <=4 S TMP SMX Islt HARINDER >=320 R Normal [facility] Comment on above: Performed By: #### L 101.9900, L100.0500, L500.4050, L501.6710 #### [facility] [address] [place], [address] Gram Stainon 04-18-2025 GS L BUTTOCKS Gram Stain 4+ Gram positive cocci 1+ Gram negative rods 2+ White Blood Cells Normal [facility] Comment on above: Performed By: #### L 101.9900, L100.0500, L500.4050, L501.6710 #### [facility] [address] [place], [address] Urinalysis, Completeon 04-18 AMORPHOUS 4+ Normal [facility] Comment on above: Order Comment: 301.2 Performed By: #### L 101.9900, L100.0500, L500.4050, L501.6710 #### [facility] [address] [place], [address] WBC 0-5 SEEN Normal 0-5 [facility] Comment on above: Order Comment: 301.2 Performed By: #### L 101.9900, L100.0500, L500.4050, L501.6710 #### [facility] [address] [place], [address] TRIPLE PHOS 4+ /hpf Normal [facility] Comment on above: Order Comment: 301.2 Performed By: #### L 101.9900, L100.0500, L500.4050, L501.6710 #### [facility] [address] [place], [address] BACTERIA 0 SEEN Normal None Seen [facility] Comment on above: Order Comment: 301.2 Performed By: #### L 101.9900, L100.0500, L500.4050, L501.6710 #### [facility] [address] [place], [address] EPI,SQUAMOUS 0 SEEN Normal 0-5 [facility] Comment on above: Order Comment: 301.2 Performed By: #### L 101.9900, L100.0500, L500.4050, L501.6710 #### [facility] [address] [place], [address] Mucus Ql (Urine sed) 0 SEEN Normal [facility] Comment on above: Order Comment: 301.2 Performed By: #### L 101.9900, L100.0500, L500.4050, L501.6710 #### [facility] [address] [place], [address] RBC 0 SEEN Normal 0-5 [facility] Comment on above: Order Comment: 301.2 Performed By: #### L 101.9900, L100.0500, L500.4050, L501.6710 #### [facility] [address] [place], [address] Sahil 03-24-2025 CNPN Telephone (UROLAE) GIVEN,ANMOL ARAUJO ([id number]) 1960 M Date Time Provider Department 03/24/25 [...] Comments as of 02/17/2025: Verified medications with [facility] 02/17/2025 Problem List As Of Date 03/24/2025 Noted Resolved NO SHOW [868739] 08/31/2013 05/29/2020 Perineal abscess [L02.215] 06/13/2019 05/29/2020 [...] EVALon 025 ANES POSTPROC EVAL HNO ID: [id number] Author: AUDREY SIMMONS MD Service: Anesthesiology Author Type: Anesthesiologist Type: Anesthesia Postprocedure Evaluation Filed: 03/20/2025 12:16 Note Text: POST ANESTHESIA EVALUATION NOTE : 1960 Procedure Summary Date: 03/20/25 Room / Location: [facility] OR / CA OR Anesthesia Start: 1024 Anesthesia Stop: 1114 [...] March 20, 2025 TIME: 12:16 PM CSN: [id number] Normal [facility] ANES PRE-OPon 03-20-2025 ANES PRE-OP HNO ID: [id number] Author: AUDREY SIMMONS MD Service: Anesthesiology Author [...] and consent discussed: yes. 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 MRSA bacteremia 11/27/2021 Neuropathy Nicotine use disorder, F17.2 06/14/2019 Pilonidal cyst with abscess 12/31/2020 Pilonidal cyst without abscess 05/29/2020 Pyelonephritis 11/27/2021 Sciatica Severe protein-calorie malnutrition (HCC) 09/04/2021 Type 2 diabetes mellitus with hyperglycemia, with long-term current use of insulin ([facility]) 01/18/2021 Ureteral stone 11/25/2021 UTI (urinary tract infection) 11/26/2021 Vertebral osteomyelitis ([facility]) 01/04/2022 PAST SURGICAL HISTORY: PAST [...] OPERATIVE NOon 03-20-2025 OPERATIVE NO HNO ID: [id number] Author: ANMOL HERBERT MD Service: Urology Author Type: Physician Type: Operative Report Filed: 03/21/2025 07:31 Note Text: OPERATIVE/PROCEDURE REPORT LOG ID: [id number] SURGERY/PROCEDURE DATE: 03/20/2025 INCISION/PROCEDURE START TIME: 10:34 AM INCISION CLOSE/PROCEDURE END TIME: 11:03 AM SURGEON(S)/PROCEDURAL IST(S) AND GENERAL CLEANER(S): Surgeons and Role: * Anmol Herbert MD - Primary * Jose Blair MD - Resident - Assisting No Additional Staff SURGERY/PROCEDURE(S): CYSTOSCOPY, RETROPYELOGRAM: 25488 (CPT?) CYSTOURETHROSCOPY W/ REMOVE URETERAL STENT: 47282 (CPT?) INSERTION STENT DOUBLE J: 95519 (CPT?) ANESTHESIA: General SURGERY/PROCEDURE DETAILS: Anmol Reynolds [...] the beginning of the procedure. Chronic 20 Algerian catheter was removed. A 21F cystourethroscope was [...] all mucus and cystoscope was removed. 20 Algerian catheter with 10 cc in balloon was replaced. Patient awoken from anesthesia having tolerated the procedure well. Anmol Reynolds Was transferred to recovery room. PRE-OP/PRE-PROCEDURE DIAGNOSIS: Pre-existing ureteral stents bilateral POST-OP/POST-PROCEDUR E DIAGNOSIS: Same ESTIMATED BLOOD LOSS: 0 ml SPECIMENS: None IMPLANTABLE DEVICES: NONE DRAINS: 20 Algerian Santana catheter with 10 cc in balloon [...] EXAM: Mar 20 2025 5:16PM [facility] 3021 - XR RETROGRADE PYELOGRAM KENROY / [...] of ureteral stents and bilateral retrograde pyelograms. Director Of Rehabilitation And Wellness: CECILIA Transcribe Date/Time: Mar 21 2025 8:21A Dictated by : KATHRIN MCKNIGHT MD This examination was interpreted and the report reviewed and electronically signed by: KATHRIN MCKNIGHT MD on Mar 21 2025 8:23AM EST [id number] N [facility] NURSING PROGon 03-17-2025 NURSING PROG HNO ID: [id number] Author: VICTORIANO GRANT RN Service: ? Author Type: Registered Nurse Type: Nursing Progress Note Filed: 03/17/2025 13:04 Note Text: Spoke w/ Comfort,surgical schedule @ 's office to verify scheduled time of Sx for Thursday;AND was directed that OR scheduled for 10:00;AND Eliquis does Not need to be held for procedure. [facility] 36on 03-15-2025 36 Spoke to nursing facility who states Pt is going to proceed with surgery at [facility]. [facility] 36 Left message for Pts nurse to call me back. [facility] CNOVon 03-14-2025 CNOV Office Visit (PLWDMR ) GIVEN,ANMOL ARAUJO ([id number]) 1960 M Date Time Provider Department 03/14/25 [...] with multiple staff Home Care Company/Nursing Facility: [facility] Consent captured for debridement per (Provider) and good until Special Instructions (for example, patient stands at the bedside for exam/dressing): bed Anticoagulant Therapy: Eliquis Living Situation (ie... Apartment, house, [facility]: facility [...] BY PROVIDER: Anesthetic Used: N/A applied per barge captain # 1 AND 2 Other procedure: Specimen [...] order date DME: [employer] , PH: [phone] SPECIAL NEEDS: EFax orders to [place] [facility] [phone] Emotional support N/A OR set-up N/A Inventory Administrator N/A Incontinence needs N/A DISCHARGED in stable [...] be drawn PARI and results faxed to [facility] [phone] Stop smoking EDUCATION: The patient/family was instructed [...] been diagnosed with (more content not included)... [facility] 36on 03-13-2025 36 Still need disc with images. Will need to review with Dr. Grimm. [facility] 36 Is it OK to get Pt scheduled for surgery? Please advise. [facility] 37on 03-07-2025 37 Need images from [facility] on disc brought to office for review in order for patient to have ureteral stent treatment at [facility]. Patient prefers [facility]. CT abdomen/pelvis 02/16/25 XR abdomen 02/16/25 and 02/17/25 Planning for ESWL vs laser litho w stent exchange. [facility] Office Visiton 03-07-2025 Follow-up visit [id number] Anmol Reynolds 1960 M Date Provider Department Center 03/07/2025 [id number]-HFUCBNTYOANA [facility]ERT[facility] URO None No family history on file Level of Service:76029 RI OFFICE/OUTPATIENT ESTABLISHED MOD MDM 30 MIN Reason for Visit and Comments: Nephrolithiasis [256021] [facility] Progress Noteon 03-07-2025 Progress Note Yoana Solitario POWDER PRESS OPERATOR - NETWORK AND THREAT SUPPORT SPECIALIST 03/07/2025 9:15 AM Urology Office Visit [facility] [address], [address] [facility] [id number] PATIENT NAME: Anmol Reynolds DATE OF : [...] negative rods. Treated. Follow up outpatient with [facility] urology Patient is scheduled for surgery w Dr Maria on 03/20/25 however he prefers treatment at [facility] Will need images for surgery [...] 8. Details above. 9. Follow-up as indicated. Director Of Rehabilitation And Wellness: CECILIA Transcribe Date/Time: Feb 16 2025 10:02P Dictated by : CORBIN PERRY MD This examination was interpreted and the report reviewed and electronically signed by: CORBIN PERRY MD on Feb 16 2025 10:34PM EST Narrative * * *Final Report* * * DATE OF EXAM: Feb 16 2025 8:33PM [facility] 0530 - CT ABD/PEL W IVCON [...] sagittal (more content not included)... Normal [facility] Anion gap in Serum or Plasma Ordered By: Tab Dupont on 03-01-2025 Anion gap [Moles/Vol] 11 mmol/L 02-16 [facility] BUN/creatinine ratioOrdered By: Tab Dupont on 03-01-2025 Urea nitrogen/Creatinine [Mass ratio] 15.3 mg/mg 07-24 [facility] Basic Metabolic Profile (BMP )on 03-01-2025 BUN/CRE 15.3 RATIO Normal 07-24 [facility] Comment on above: Order Comment: 412-2 Performed By: #### L 500.2500, L100.0500 #### [facility] [address] [place], [address] Calcium [Mass/Vol] 8.5 mg/dL Normal 7.6-11.0 [facility] Comment on above: Order Comment: 412-2 Performed By: #### L 500.2500, L100.0500 #### [facility] [address] [place], [address] Chloride [Moles/Vol] 104 mmol/L Normal 98-108 [facility] Comment on above: Order Comment: 412-2 Performed By: #### L 500.2500, L100.0500 #### [facility] [address] [place], [address] CO2 [Moles/Vol] 21.8 mmol/L Normal 21.0-32.0 [facility] Comment on above: Order Comment: 412-2 Performed By: #### L 500.2500, L100.0500 #### [facility] [address] [place], [address] Creatinine [Mass/Vol] 0.59 mg/dL Low 0.70-1.20 [facility] Comment on above: Order Comment: 412-2 Performed By: #### L 500.2500, L100.0500 #### [facility] [address] [place], [address] GAP 11 Normal 5-15 [facility] Comment on above: Order Comment: 412-2 Performed By: #### L 500.2500, L100.0500 #### [facility] [address] [place], [address] GFR/1.73 sq M.predicted among non-blacks MDRD (S/P/Bld) [Vol rate/Area] 109 mL/min/{1.73_m2} Normal >60 [facility] Comment on above: Order Comment: 412-2 Result Comment: mL/m in/1.73m2 CKD-EPI Creatinine Equation (2020) Performed By: #### L 500.2500, L100.0500 #### [facility] [address] [place], [address] Glucose [Mass/Vol] 146 mg/dL High 70-99 [facility] Comment on above: Order Comment: 412-2 Performed By: #### L 500.2500, L100.0500 #### [facility] [address] [place], [address] Potassium [Moles/Vol] 4.0 mmol/L Normal 3.3-5.1 [facility] Comment on above: Order Comment: 412-2 Performed By: #### L 500.2500, L100.0500 #### [facility] [address] [place], [address] Sodium [Moles/Vol] 136 mmol/L Normal 133-145 [facility] Comment on above: Order Comment: 412-2 Performed By: #### L 500.2500, L100.0500 #### [facility] [address] [place], [address] Urea nitrogen [Mass/Vol] 9 mg/dL Normal 4-19 [facility] Comment on above: Order Comment: 412-2 Performed By: #### L 500.2500, L100.0500 #### [facility] [address] [place], [address] CBC-Complete Blood Cnt No Di ffon 03-01-2025 Erythrocyte distribution width (RBC) [Ratio] 15.4 % High 11.6-14.6 [facility] Comment on above: Order Comment: 412-2 Performed By: #### L 500.2500, L100.0500 #### [facility] [address] [place], [address] Hematocrit (Bld) [Volume fraction] 41.2 % Normal 40-54 [facility] Comment on above: Order Comment: 412-2 Performed By: #### L 500.2500, L100.0500 #### [facility] [address] [place], [address] Hemoglobin (Bld) [Mass/Vol] 12.9 g/dL Low 13.0-16.5 [facility] Comment on above: Order Comment: 412-2 Performed By: #### L 500.2500, L100.0500 #### [facility] [address] [place], [address] MCH (RBC) [Entitic mass] 29.5 pg Normal 27.0-32.0 [facility] Comment on above: Order Comment: 412-2 Performed By: #### L 500.2500, L100.0500 #### [facility] [address] [place], [address] MCHC (RBC) [Mass/Vol] 31.3 g/dL Low 32-36 [facility] Comment on above: Order Comment: 412-2 Performed By: #### L 500.2500, L100.0500 #### [facility] [address] [place], [address] MCV (RBC) [Entitic vol] 94.3 fL High 80-94 [facility] Comment on above: Order Comment: 412-2 Performed By: #### L 500.2500, L100.0500 #### [facility] [address] [place], [address] Platelet mean volume (Bld) [Entitic vol] 11.6 fL Normal 6.2-12.0 [facility] Comment on above: Order Comment: 412-2 Performed By: #### L 500.2500, L100.0500 #### [facility] [address] [place], [address] Platelets (Bld) [#/Vol] 345 10*3/uL Normal 150-450 [facility] Comment on above: Order Comment: 412-2 Performed By: #### L 500.2500, L100.0500 #### [facility] [address] [place], [address] RBC (Bld) [#/Vol] 4.37 10*6/uL Low 4.6-6.2 [facility] Comment on above: Order Comment: 412-2 Performed By: #### L 500.2500, L100.0500 #### [facility] [address] [place], [address] RDW SD 52.4 fl High 35.1-43.9 [facility] Comment on above: Order Comment: 412-2 Performed By: #### L 500.2500, L100.0500 #### [facility] [address] [place], [address] WBC (Bld) [#/Vol] 7.6 10*3/uL Normal 4.4-11.0 [facility] Comment on above: Order Comment: 412-2 Performed By: #### L 500.2500, L100.0500 #### [facility] [address] [place], [address] Carbon dioxide, total [Moles /volume] in Central venous bloodOrdered By: Tab Dupont on 03-01-2025 CO2 [Moles/Vol] 21.8 mmol/L 21.0-32.0 [facility] Chloride assayOrdered By: Vinh Lehman on 03-01-2025 Chloride [Moles/Vol] 104 mmol/L 98-108 [facility] Erythrocyte distribution wid th ratioOrdered By: Tab Dupont on 03-01-2025 Erythrocyte distribution width (RBC) [Ratio] 15.4 % High 11.6-14.6 [facility] Erythrocyte distribution wid th standard deviationOrdered By: Tab Dupont on 03-01-2025 Erythrocyte distribution width (RBC) [Ratio] 52.4 fl High 35.1-43.9 [facility] Glomerular filtration rate ( GFR) estimation/1.73 sq m using serum, plasma, or whole bOrdered By: Tab Dupont on 03-01-2025 GFR/1.73 sq M.predicted among non-blacks MDRD (S/P/Bld) [Vol rate/Area] 109 mL/min/{1.73_m2} >60 [facility] Comment on above: mL/min/1.73m2 CKD-EP I Creatinine Equation (2020) Hematocrit Auto (Bld) [Volum e fraction]Ordered By: Tab Dupont on 03-01-2025 Hematocrit (Bld) [Volume fraction] 41.2 % 40-54 [facility] Hemoglobin measurementOrdere d By: Tab Dupont on 03-01-2025 Hemoglobin (Bld) [Mass/Vol] 12.9 g/dL Low 13.0-16.5 [facility] MCV (mean corpuscular volume ) determinationOrdered By: Tab Dupont on 03-01-2025 MCV (RBC) [Entitic vol] 94.3 fL High 80-94 [facility] Mean corpuscular hemoglobin (MCH) determinationOrdered By: Tab Dupont on 03-01-2025 MCH (RBC) [Entitic mass] 29.5 pg 27.0-32.0 [facility] Mean corpuscular hemoglobin concentration (MCHC) determinationOrdered By: Tab Dupont on 03-01-2025 MCHC (RBC) [Mass/Vol] 31.3 g/dL Low 32-36 [facility] Mean platelet volume determi nationOrdered By: Tab Dupont on 03-01-2025 Platelet mean volume (Bld) [Entitic vol] 11.6 fL 6.2-12.0 [facility] Platelet countOrdered By: Vinh Lehman on 03-01-2025 Platelets (Bld) [#/Vol] 345 10*3/uL 150-450 [facility] Potassium measurement (mass/ volume)Ordered By: Tab Dupont on 03-01-2025 Potassium (Unsp spec) [Mass/Vol] 4.0 mmol/L 3.3-5.1 [facility] RBC Auto (Bld) [#/Vol]Ordere d By: Tab Dupont on 03-01-2025 RBC (Bld) [#/Vol] 4.37 10*6/uL Low 4.6-6.2 [facility] Serum creatinine measurement (mass/volume)Ordered By: Tab Dupont on 03-01-2025 Creatinine [Mass/Vol] 0.59 mg/dL Low 0.70-1.20 [facility] Serum glucose measurement (m ass/volume)Ordered By: Tab Dupont on 03-01-2025 Glucose [Mass/Vol] 146 mg/dL High 70-99 [facility] Serum or plasma calcium randall urement (mass/volume)Ordered By: Tab uDpont on 03-01-2025 Calcium [Mass/Vol] 8.5 mg/dL 7.6-11.0 [facility] Serum or plasma urea nitroge n measurement (mass/volume)Ordered By: Tab Dupont on 03-01-2025 Urea nitrogen [Mass/Vol] 9 mg/dL 4-19 [facility] Sodium levelOrdered By: Omar Dupont on 03-01-2025 Sodium [Moles/Vol] 136 mmol/L 133-145 [facility] White blood cell (WBC) count Ordered By: Tab Dupont on 03-01-2025 WBC (Bld) [#/Vol] 7.6 10*3/uL 4.4-11.0 [facility] CBC panel Auto (Bld)on 02-22 Erythrocyte distribution width (RBC) [Ratio] 14.8 % Normal 11.5-15.0 [facility] Comment on above: Order Comment: Speci men Type: BLOOD SPECIMENOrdering Facility: [facility] Address: [address] [place] [address] Performed By: #### 5 8410-2 ####[facility] LABORATORYCLIA [id number] [address] STATES [place] [facility] Hematocrit (Bld) [Volume fraction] 33.6 % Low 39.0-51.0 [facility] Comment on above: Order Comment: Speci men Type: BLOOD SPECIMENOrdering Facility: [facility] Address: [address] [place] [address] Performed By: #### 5 8410-2 ####[facility]ORATORYCLIA [id number] [address] [place] [facility] Hemoglobin (Bld) [Mass/Vol] 10.6 g/dL Low 13.0-17.0 [facility] Comment on above: Order Comment: Speci men Type: BLOOD SPECIMENOrdering Facility: [facility] Address: [address] [place] [address] Performed By: #### 5 8410-2 ####[facility]ORATORYCLIA [id number] [address] [place] MCH (RBC) [Entitic mass] 30.0 pg Normal 26.0-34.0 [facility] Comment on above: Order Comment: Speci men Type: BLOOD SPECIMENOrdering Facility: [facility] Address: [address] [place] [address] Performed By: #### 5 8410-2 ####[facility]ORATORYCLIA [id number] [address] [place] MCHC (RBC) [Mass/Vol] 31.5 g/dL Normal 30.5-36.0 [facility] Comment on above: Order Comment: Speci men Type: BLOOD SPECIMENOrdering Facility: [facility] Address: [address] [place] [address] Performed By: #### 5 8410-2 ####[facility]ORATORYCLIA [id number] [address] [place] MCV (RBC) [Entitic vol] 95.2 fL Normal 80.0-100.0 [facility] Comment on above: Order Comment: Speci men Type: BLOOD SPECIMENOrdering Facility: [facility] Address: [address] [place] [address] Performed By: #### 5 8410-2 ####[facility]ORATORYCLIA [id number] [address] [place] Nucleated RBC (Bld) [#/Vol] 10*3/uL Normal <0.01 [facility] Comment on above: Order Comment: Speci men Type: BLOOD SPECIMENOrdering Facility: [facility] Address: [address] [place] [address] Performed By: #### 5 8410-2 ####[facility]ORATORYCLIA [id number] [address] Platelet mean volume (Bld) [Entitic vol] 11.5 fL Normal 9.0-12.7 [facility] Comment on above: Order Comment: Speci men Type: BLOOD SPECIMENOrdering Facility: [facility] Address: [address] [place] [address] Performed By: #### 5 8410-2 ####[facility]ORATORYCLIA [id number] [address] OF [facility] Platelets (Bld) [#/Vol] 153 10*3/uL Normal 150-400 [facility] Comment on above: Order Comment: Speci men Type: BLOOD SPECIMENOrdering Facility: [facility] Address: [address] [place] [address] Performed By: #### 5 8410-2 ####[facility]ORATORYCLIA [id number] [address] [place] RBC (Bld) [#/Vol] 3.53 10*6/uL Low 4.20-6.00 [facility] Comment on above: Order Comment: Speci men Type: BLOOD SPECIMENOrdering Facility: [facility] Address: [address] [id number] Performed By: #### 5 8410-2 ####[facility]ORATORYCLIA [id number] [place] [id number] [facility] WBC (Bld) [#/Vol] 9.23 10*3/uL Normal 3.70-11.00 [facility] Comment on above: Order Comment: Speci men Type: BLOOD SPECIMENOrdering Facility: [facility] Address: [address] [id number] Performed By: #### 5 8410-2 ####[facility]ORATORYCLIA [id number] [place] [address] [facility] CNDSon 02-22-2025 CNDS HNO ID: [id number] Author: CHUY PADILLA DO Service: Hospital Medicine [...] 2024. The patient initially presented to the [facility] ED on February 16, 2025 after [...] No pending results Discharge Disposition Discharge Disposition: Snf Facility - Less than 30 Days Activity [...] call for appointment?: Yes Gayle Scott MD [phone] [place] [address] [facility] [address] PCP Requested Referral Additional Provider to Provider Information: Treatment Team: Attending Provider: Chuy Padilla DO Consulting: Charlie Williamson MD Primary Service: [facility] Problems Diagnosis POA Septic shock (HCC) [...] Center Comment on above: Order Comment: Speci [facility] Type: BLOOD SPECIMENOrdering Facility: [facility] Address: [address] [place] [address] Performed By: #### 2 4323-8 ####[facility]ORATORYCLIA [id number] [address] [place] ALP [Catalytic activity/Vol] 89 U/L Normal 38-113 [facility] Comment on above: Order Comment: Speci [facility] Type: BLOOD SPECIMENOrdering Facility: [facility] Address: [address] [place] [address] Performed By: #### 2 4323-8 ####[facility]ORATORYCLIA [id number] [place] [address] [place] ALT With P-5'-P [Catalytic activity/Vol] 12 U/L Normal 10-54 [facility] Comment on above: Order Comment: [facility] Type: BLOOD SPECIMENOrdering Facility: [facility] Address: [address] [place] [address] Performed By: #### 2 4323-8 ####[facility]ORATORYCLIA [id number] [place] [address] [place] Anion gap [Moles/Vol] 8 mmol/L Normal 8-15 [facility] Comment on above: Order Comment: Speci men Type: BLOOD SPECIMENOrdering Facility: [facility] Address: [address] [place] [address] Performed By: #### 2 4323-8 ####[facility]ORATORYCLIA [id number] [place] [address] [place] AST With P-5'-P [Catalytic activity/Vol] 13 U/L Low 14-40 [facility] Comment on above: Order Comment: Speci men Type: BLOOD SPECIMENOrdering Facility: [facility] Address: [address] [place] [address] Performed By: #### 2 4323-8 ####[facility]ORATORYCLIA [id number] [place] [address] [place] Bilirubin [Mass/Vol] 0.4 mg/dL Normal 0.2-1.3 [facility] Comment on above: Order Comment: Speci men Type: BLOOD SPECIMENOrdering Facility: [facility] Address: [address] [place] [address] Performed By: #### 2 4323-8 ####[facility]ORATORYCLIA [id number] [address] [place] Calcium [Mass/Vol] 7.7 mg/dL Low 8.5-10.2 [facility] Comment on above: Order Comment: Speci men Type: BLOOD SPECIMENOrdering Facility: [facility] Address: [address] [place] [address] Performed By: #### 2 4323-8 ####[facility]ORATORYCLIA [id number] [address] [place] Chloride [Moles/Vol] 108 mmol/L High 98-107 [facility] Comment on above: Order Comment: Speci men Type: BLOOD SPECIMENOrdering Facility: [facility] Address: [address] [id number] Performed By: #### 2 4323-8 ####[facility]ORATORYCLIA [id number] [place] [id number] [place] CO2 [Moles/Vol] 23 mmol/L Normal 22-30 [facility] Comment on above: Order Comment: Speci men Type: BLOOD SPECIMENOrdering Facility: [facility] Address: [address] [place] [address] Performed By: #### 2 4323-8 ####[facility]ORATORYCLIA [id number] [address] [place] Creatinine [Mass/Vol] 0.60 mg/dL Low 0.73-1.22 [facility] Comment on above: Order Comment: Speci men Type: BLOOD SPECIMENOrdering Facility: [facility] Address: [address] [place] [address] Performed By: #### 2 4323-8 ####[facility]ORATORYCLIA [id number] [address] Creatinine and Glomerular filtration rate.predicted panel (S/P/Bld) 108 mL/min/1.73m??? Normal >=60 [facility] Comment on above: Order Comment: Speci men Type: BLOOD SPECIMENOrdering Facility: [facility] Address: [address] [place] [address] Result Comment: Leena mated Glomerular Filtration Rate [...] actual GFR. Performed By: #### 2 4323-8 ####[facility]ORATORYCLIA [id number] [address] [place] Glucose [Mass/Vol] 144 mg/dL High 74-99 [facility] Comment on above: Order Comment: Speci men Type: BLOOD SPECIMENOrdering Facility: [facility] Address: [address] [id number] Result Comment: The [place] Diabetes Association (ADA) provides guidance for cutoff [...] Standards of Medical Care in Diabetes 2016, [place] Diabetes Association. Diabetes Care. 2016.39(Suppl 1). Performed By: #### 2 4323-8 ####[facility]ORATORYCLIA [id number] [place] [address] [place] Potassium [Moles/Vol] 3.9 mmol/L Normal 3.7-5.1 [facility] Comment on above: Order Comment: Speci men Type: BLOOD SPECIMENOrdering Facility: [facility] Address: [address] [place] [address] Performed By: #### 2 4323-8 ####[facility]ORATORYCLIA [id number] [place] [address] [place] Protein [Mass/Vol] 5.7 g/dL Low 6.3-8.0 [facility] Comment on above: Order Comment: Speci men Type: BLOOD SPECIMENOrdering Facility: [facility] Address: [address] [id number] Performed By: #### 2 4323-8 ####[facility]ORATORYCLIA [id number] [place] [address] [place] Sodium [Moles/Vol] 139 mmol/L Normal 136-144 [facility] Comment on above: Order Comment: Speci men Type: BLOOD SPECIMENOrdering Facility: [facility] Address: [address] [id number] Performed By: #### 2 4323-8 ####[facility]ORATORYCLIA [id number] [place] [address] [place] Urea nitrogen [Mass/Vol] 14 mg/dL Normal 9-24 [facility] Comment on above: Order Comment: Speci men Type: BLOOD SPECIMENOrdering Facility: [facility] Address: [facility] [place] [address] Performed By: #### 2 4323-8 ####[facility]ORATORYCLIA [id number] [place] [address] [facility] [place] NURSING PROGon 02-22-2025 NURSING PROG HNO ID: [id number] Author: NAHUN GUNDERSON RN Service: Nursing Author Type: Registered Nurse Type: Nursing Progress Note Filed: 02/22/2025 19:58 Note Text: Call to ALEXANDRA Adams at [facility] for report. Follow up appts AND new medications reviewed. Normal [facility] THERAPY NTon 02-22-2025 THERAPY NT HNO ID: [id number] Author: VICTORIANO BACA, JAIDAR/L Service: Occupational Therapy Author Type: Occupational Therapist Type: Therapy (PT/OT/Speech/Resp) Filed: 02/22/2025 15:00 Note Text: Occupational Therapy Evaluation Summary SERVICE DATE: 02/22/2025 SERVICE TIME: 1345 to 1403 ROOM: [place] [address] OT 6 Clicks Score: 16 DISCHARGE RECOMMENDATIONS [...] was managed in ICU; transferred to [facility] 02/20 Relevant Past Medical History: back injury and surgery in the past--then found to have epidural abscess--had another back sx in 2021--harware needed removed in January 2022 and then was paraplegic; has had issues with UTIs HOME LIVING Patient Lives With: Facility Care ([place] [facility] [place]) Assistance Available: 24-Hour Tub/Shower Type: sponge bath [...] Time (minutes): 18 $ Evaluation - Low (67562) Billed Units: 1 unit TRAINING AND EDUCATION [...] [facility] THERAPY NT HNO ID: [id number] Author: FABRICIO GREENBERG PT Service: Physical Therapy Author Type: Physical Therapist Type: Therapy (PT/OT/Speech/Resp) Filed: 02/22/2025 11:54 Note Text: Physical Therapy Evaluation Summary SERVICE DATE: 02/22/2025 SERVICE TIME: 1120 to 1135 ROOM: [place] [address] PT 6 Clicks Score: 7 DISCHARGE RECOMMENDATIONS ECF ASSESSMENT Response to Therapy Interventions: Multiple Ongoing Medical Issues pt tolerated bilat LE PROM--no c/o pain; able to complete roll with assist from PT with drawhseet PRECAUTIONS Fall Risk, Lines/Tubes/Drains CURRENT HOSPITAL COURSE presented to ED after being found unresponsive--septic shock was managed in ICU; transferred to [facility] 02/20 Relevant Past Medical History: back injury and surgery in the past--then found to have epidural abscess--had another back sx in 2021--harware needed removed in January 2022 and then was paraplegic; has had issues with UTIs HOME LIVING Patient Lives With: Facility Care ([facility]) Assistance Available: 24-Hour Equipment Owned: Wheelchair- [...] Skilled Treatment Time (minutes): 15 $ Evaluation-Moderate (10878) Billed Units: 1 unit Completed PROM bilat [...] [Ratio] 14.9 % Normal 11.5-15.0 [facility] Comment on above: Order Comment: Speci men Type: BLOOD SPECIMENOrdering Facility: [facility] Address: [address] [place] [address] Performed By: #### 5 8410-2 ####[facility]ORATORYCLIA [id number] [address] STATES [place] [facility] Hematocrit (Bld) [Volume fraction] 38.6 % Low 39.0-51.0 [facility] Comment on above: Order Comment: Speci men Type: BLOOD SPECIMENOrdering Facility: [facility] Address: [address] [place] [address] Performed By: #### 5 8410-2 ####[facility]ORATORYCLIA [id number] [address] [place] Hemoglobin (Bld) [Mass/Vol] 12.3 g/dL Low 13.0-17.0 [facility] Comment on above: Order Comment: Speci men Type: BLOOD SPECIMENOrdering Facility: [facility] Address: [address] [place] [address] Performed By: #### 5 8410-2 ####[facility]ORATORYCLIA [id number] [address] [place] MCH (RBC) [Entitic mass] 29.9 pg Normal 26.0-34.0 [facility] Comment on above: Order Comment: Speci men Type: BLOOD SPECIMENOrdering Facility: [facility] Address: [address] [place] [address] Performed By: #### 5 8410-2 ####[facility]ORATORYCLIA [id number] [address] [place] MCHC (RBC) [Mass/Vol] 31.9 g/dL Normal 30.5-36.0 [facility] Comment on above: Order Comment: Speci men Type: BLOOD SPECIMENOrdering Facility: [facility] Address: [address] [place] [address] Performed By: #### 5 8410-2 ####[facility]ORATORYCLIA [id number] [address] OF [facility] MCV (RBC) [Entitic vol] 93.7 fL Normal 80.0-100.0 [facility] Comment on above: Order Comment: Speci men Type: BLOOD SPECIMENOrdering Facility: [facility] Address: [address] [place] [address] Performed By: #### 5 8410-2 ####[facility]ORATORYCLIA [id number] [address] Nucleated RBC (Bld) [#/Vol] 10*3/uL Normal <0.01 [facility] Comment on above: Order Comment: Speci men Type: BLOOD SPECIMENOrdering Facility: [facility] Address: [address] [place] [address] Performed By: #### 5 8410-2 ####[facility]ORATORYCLIA [id number] [address] Platelet mean volume (Bld) [Entitic vol] 11.7 fL Normal 9.0-12.7 [facility] Comment on above: Order Comment: Speci men Type: BLOOD SPECIMENOrdering Facility: [facility] Address: [address] [place] [address] Performed By: #### 5 8410-2 ####[facility]ORATORYCLIA [id number] [address] Platelets (Bld) [#/Vol] 134 10*3/uL Low 150-400 [facility] Comment on above: Order Comment: Speci men Type: BLOOD SPECIMENOrdering Facility: [facility] Address: [address] [place] [address] Result Comment: No c lot detected. Performed By: #### 5 8410-2 ####[facility]ORATORYCLIA [id number] [address] [place] RBC (Bld) [#/Vol] 4.12 10*6/uL Low 4.20-6.00 [facility] Comment on above: Order Comment: Speci men Type: BLOOD SPECIMENOrdering Facility: [facility] Address: [address] [place] [address] Performed By: #### 5 8410-2 ####[facility]ORATORYCLIA [id number] [place] [id number] [facility] [place] WBC (Bld) [#/Vol] 9.99 10*3/uL Normal 3.70-11.00 [facility] Comment on above: Order Comment: Speci men Type: BLOOD SPECIMENOrdering Facility: [facility] Address: [address] [place] [address] Performed By: #### 5 8410-2 ####[facility]ORATORYCLIA [id number] [place] [id number] [facility] CONSULT PROGon 02-21-2025 CONSULT PROG HNO ID: [id number] Author: ERIKA TEE APRN.NETWORK AND THREAT SUPPORT SPECIALIST Service: Infectious Disease Author Type: Nurse Practitioner Type: Consult Progress Note Filed: 02/21/2025 15:32 Note Text: Summary: ID signing off PROGRESS NOTE INFECTIOUS DISEASE BRIEF SUMMARY: 64-year-old male past medical history chronic Santana catheter urinary retention/neurogenic bladder, paraplegia due to epidural abscess, diabetes mellitus type 2, bilateral hydronephrosis s/p ureteral stent placement in April 2024 presented to [facility] 02/16/2025 after being [facility] un[facility] at [facility]. Urine and blood cultures with growth [...] Drains, and Airways Line Duration Peripheral 02/16/251922 [facility] Short Left Antecubital 18 Gauge 4 days Drain Duration Indwelling Urinary Catheter 02/16/252125 [facility] Coude 20 Fr 4 days [...] Comment: Speci men Type: BLOOD SPECIMENOrdering Facility: [facility] Address: [address] [place] [address] Performed By: #### 2 4323-8 ####[facility]ORATORYCLIA [id number] [address] [place] [facility] ALP [Catalytic activity/Vol] 121 U/L High 38-113 [facility] Comment on above: Order Comment: Speci men Type: BLOOD SPECIMENOrdering Facility: [facility] Address: [address] [place] [address] Performed By: #### 2 4323-8 ####[facility]ORATORYCLIA [id number] [address] [place] ALT With P-5'-P [Catalytic activity/Vol] 15 U/L Normal 10-54 [facility] Comment on above: Order Comment: Speci men Type: BLOOD SPECIMENOrdering Facility: [facility] Address: [address] [place] [address] Performed By: #### 2 4323-8 ####[facility]ORATORYCLIA [id number] [address] Anion gap [Moles/Vol] 9 mmol/L Normal 8-15 [facility] Comment on above: Order Comment: Speci men Type: BLOOD SPECIMENOrdering Facility: [facility] Address: [address] [place] [address] Performed By: #### 2 4323-8 ####[facility]ORATORYCLIA [id number] [place] [address] [place] AST With P-5'-P [Catalytic activity/Vol] 23 U/L Normal 14-40 [facility] Comment on above: Order Comment: Speci men Type: BLOOD SPECIMENOrdering Facility: [facility] Address: [address] [place] [address] Performed By: #### 2 4323-8 ####[facility]ATORYCLIA [id number] [place] [address] [place] Bilirubin [Mass/Vol] 0.8 mg/dL Normal 0.2-1.3 [facility] Comment on above: Order Comment: Speci men Type: BLOOD SPECIMENOrdering Facility: [facility] Address: [address] [place] [address] Performed By: #### 2 4323-8 ####[facility]ATORYCLIA [id number] [place] [address] [place] Calcium [Mass/Vol] 8.2 mg/dL Low 8.5-10.2 [facility] Comment on above: Order Comment: Speci men Type: BLOOD SPECIMENOrdering Facility: [facility] Address: [address] [place] [address] Performed By: #### 2 4323-8 ####[facility]ORATORYCLIA [id number] [place] [address] [place] Chloride [Moles/Vol] 105 mmol/L Normal 98-107 [facility] Comment on above: Order Comment: Speci men Type: BLOOD SPECIMENOrdering Facility: [facility] Address: [address] [place] [address] Performed By: #### 2 4323-8 ####[facility]ORATORYCLIA [id number] [place] [address] [place] CO2 [Moles/Vol] 21 mmol/L Low 22-30 [facility] Comment on above: Order Comment: Speci men Type: BLOOD SPECIMENOrdering Facility: [facility] Address: [address] [place] [address] Performed By: #### 2 4323-8 ####[facility]ATORYCLIA [id number] [place] [address] [place] Creatinine [Mass/Vol] 0.58 mg/dL Low 0.73-1.22 [facility] Comment on above: Order Comment: Speci men Type: BLOOD SPECIMENOrdering Facility: [facility] Address: [address] [place] [address] Performed By: #### 2 4323-8 ####[facility]ATORYCLIA [id number] [address] Creatinine and Glomerular filtration rate.predicted panel (S/P/Bld) 110 mL/min/1.73m??? Normal >=60 [facility] Comment on above: Order Comment: Speci men Type: BLOOD SPECIMENOrdering Facility: [facility] Address: [address] [place] [address] Result Comment: Leena mated Glomerular Filtration Rate [...] actual GFR. Performed By: #### 2 4323-8 ####[facility] LABORATORYCLIA [id number] [address] [place] Glucose [Mass/Vol] 162 mg/dL High 74-99 [facility] Comment on above: Order Comment: Speci men Type: BLOOD SPECIMENOrdering Facility: [facility] Address: [address] [place] [address] Result Comment: The [place] Diabetes Association (ADA) provides guidance for cutoff [...] Standards of Medical Care in Diabetes 2016, [place] Diabetes Association. Diabetes Care. 2016.39(Suppl 1). Performed By: #### 2 4323-8 ####[facility]ORATORYCLIA [id number] [place] [address] [place] Potassium [Moles/Vol] 4.1 mmol/L Normal 3.7-5.1 [facility] Comment on above: Order Comment: Jg valdez Type: BLOOD SPECIMENOrdering Facility: [facility] Address: [address] [place] [address] Performed By: #### 2 4323-8 ####[facility]ORATORYCLIA [id number] [place] [address] [place] Protein [Mass/Vol] 6.6 g/dL Normal 6.3-8.0 [facility] Comment on above: Order Comment: Jg valdez Type: BLOOD SPECIMENOrdering Facility: [facility] Address: [address] [place] [address] Performed By: #### 2 4323-8 ####[facility]ORATORYCLIA [id number] [place] [address] [place] Sodium [Moles/Vol] 135 mmol/L Low 136-144 [facility] Comment on above: Order Comment: [place] men Type: BLOOD SPECIMENOrdering Facility: [facility] Address: [address] [place] [address] Performed By: #### 2 4323-8 ####[facility]ORATORYCLIA [id number] [place] [address] [place] Urea nitrogen [Mass/Vol] 21 mg/dL Normal 9-24 [facility] Comment on above: Order Comment: Speci men Type: BLOOD SPECIMENOrdering Facility: [facility] Address: [address] [place] [address] Performed By: #### 2 4323-8 ####[facility]ORATORYCLIA [id number] [address] [facility] Comprehensive metabolic 2000 panelon 02-20-2025 Albumin [Mass/Vol] 2.3 g/dL Low 3.9-4.9 [facility] Comment on above: Order Comment: Speci men Type: BLOOD SPECIMENOrdering Facility: [facility] Address: [address] [place] [address] Performed By: #### 2 4323-8 ####[facility]ORATORYCLIA [id number] [address] [place] ALP [Catalytic activity/Vol] 107 U/L Normal 38-113 [facility] Comment on above: Order Comment: Speci men Type: BLOOD SPECIMENOrdering Facility: [facility] Address: [address] [place] [address] Performed By: #### 2 4323-8 ####[facility]ATORYCLIA [id number] [address] [facility] ALT With P-5'-P [Catalytic activity/Vol] 17 U/L Normal 10-54 [facility] Comment on above: Order Comment: Speci men Type: BLOOD SPECIMENOrdering Facility: [facility] Address: [address] [place] [address] Performed By: #### 2 4323-8 ####[facility]ORATORYCLIA [id number] [address] [place] Anion gap [Moles/Vol] 8 mmol/L Normal 8-15 [facility] Comment on above: Order Comment: Speci men Type: BLOOD SPECIMENOrdering Facility: [facility] Address: [address] [place] [address] Performed By: #### 2 4323-8 ####[facility]ORATORYCLIA [id number] [place] [address] [place] AST With P-5'-P [Catalytic activity/Vol] 22 U/L Normal 14-40 [facility] Comment on above: Order Comment: Speci men Type: BLOOD SPECIMENOrdering Facility: [facility] Address: [address] [place] [address] Performed By: #### 2 4323-8 ####[facility]ATORYCLIA [id number] [place] [address] [place] Bilirubin [Mass/Vol] 0.8 mg/dL Normal 0.2-1.3 [facility] Comment on above: Order Comment: Speci men Type: BLOOD SPECIMENOrdering Facility: [facility] Address: [address] [place] [address] Performed By: #### 2 4323-8 ####[facility]ATORYCLIA [id number] [place] [address] [place] Calcium [Mass/Vol] 7.7 mg/dL Low 8.5-10.2 [facility] Comment on above: Order Comment: Speci men Type: BLOOD SPECIMENOrdering Facility: [facility] Address: [address] [place] [address] Performed By: #### 2 4323-8 ####[facility]ATORYCLIA [id number] [place] [address] [place] Chloride [Moles/Vol] 110 mmol/L High 98-107 [facility] Comment on above: Order Comment: Speci men Type: BLOOD SPECIMENOrdering Facility: [facility] Address: [address] [place] [address] Performed By: #### 2 4323-8 ####[facility]ATORYCLIA [id number] [place] [address] [place] CO2 [Moles/Vol] 23 mmol/L Normal 22-30 [facility] Comment on above: Order Comment: Speci men Type: BLOOD SPECIMENOrdering Facility: [facility] Address: [address] [place] [address] Performed By: #### 2 4323-8 ####[facility]ORATORYCLIA [id number] [place] [id number] [place] [facility] Creatinine [Mass/Vol] 0.60 mg/dL Low 0.73-1.22 [facility] Comment on above: Order Comment: Jg valdez Type: BLOOD SPECIMENOrdering Facility: [facility] Address: [address] [place] [address] Performed By: #### 2 4323-8 ####[facility]CL[facility] [id number] [place] [id number] [facility] Creatinine and Glomerular filtration rate.predicted panel (S/P/Bld) 108 mL/min/1.73m??? Normal >=60 [facility] Comment on above: Order Comment: Jg valdez Type: BLOOD SPECIMENOrdering Facility: [facility] Address: [address] [place] [address] Result Comment: Leena mated Glomerular Filtration Rate [...] actual GFR. Performed By: #### 2 4323-8 ####[facility]ATORYCLIA [id number] [address] STATES [facility] Glucose [Mass/Vol] 90 mg/dL Normal 74-99 [facility] Comment on above: Order Comment: Jg valdez Type: BLOOD SPECIMENOrdering Facility: [facility] Address: [address] [place] [address] Result Comment: The [place] Diabetes Association (ADA) provides guidance for cutoff [...] Standards of Medical Care in Diabetes 2016, [place] Diabetes Association. Diabetes Care. 2016.39(Suppl 1). Performed By: #### 2 4323-8 ####[facility]ATORYCLIA [id number] [place] [address] [place] Potassium [Moles/Vol] 4.1 mmol/L Normal 3.7-5.1 [facility] Comment on above: Order Comment: Speci [facility] Type: BLOOD SPECIMENOrdering Facility: [facility] Address: [address] [place] [address] Performed By: #### 2 4323-8 ####[facility]ATORYCLIA [id number] [place] [address] [place] Protein [Mass/Vol] 5.7 g/dL Low 6.3-8.0 [facility] Comment on above: Order Comment: Speci [facility] Type: BLOOD SPECIMENOrdering Facility: [facility] Address: [address] [place] [address] Performed By: #### 2 4323-8 ####[facility]ATORYCLIA [id number] [place] [address] [place] Sodium [Moles/Vol] 141 mmol/L Normal 136-144 [facility] Comment on above: Order Comment: [place] [facility] Type: BLOOD SPECIMENOrdering Facility: [facility] Address: [address] [place] [address] Performed By: #### 2 4323-8 ####[facility]ATORYCLIA [id number] [place] [address] [place] Urea nitrogen [Mass/Vol] 25 mg/dL High 9-24 [facility] Comment on above: Order Comment: [place] men Type: BLOOD SPECIMENOrdering Facility: [facility] Address: [address] [place] [address] Performed By: #### 2 4323-8 ####[facility]ORATORYCLIA [id number] [address] CBC panel Auto (Bld)on 02-19 Erythrocyte distribution width (RBC) [Ratio] 14.8 % Normal 11.5-15.0 [facility] Comment on above: Order Comment: Speci men Type: BLOOD SPECIMENOrdering Facility: [facility] Address: [address] [place] [address] Performed By: #### 5 8410-2 ####[facility]ORATORYCLIA [id number] [address] Hematocrit (Bld) [Volume fraction] 32.5 % Low 39.0-51.0 [facility] Comment on above: Order Comment: Speci men Type: BLOOD SPECIMENOrdering Facility: [facility] Address: [address] [place] [address] Performed By: #### 5 8410-2 ####[facility]ATORYCLIA [id number] [address] Hemoglobin (Bld) [Mass/Vol] 11.1 g/dL Low 13.0-17.0 [facility] Comment on above: Order Comment: Speci men Type: BLOOD SPECIMENOrdering Facility: [facility] Address: [address] [place] [address] Performed By: #### 5 8410-2 ####[facility]ORATORYCLIA [id number] [address] [facility] MCH (RBC) [Entitic mass] 30.5 pg Normal 26.0-34.0 [facility] Comment on above: Order Comment: Speci men Type: BLOOD SPECIMENOrdering Facility: [facility] Address: [address] [place] [address] Performed By: #### 5 8410-2 ####[facility]ATORYCLIA [id number] [address] MCHC (RBC) [Mass/Vol] 34.2 g/dL Normal 30.5-36.0 [facility] Comment on above: Order Comment: Speci men Type: BLOOD SPECIMENOrdering Facility: [facility] Address: [address] [place] [address] Performed By: #### 5 8410-2 ####[facility]ATORYCLIA [id number] [address] MCV (RBC) [Entitic vol] 89.3 fL Normal 80.0-100.0 [facility] Comment on above: Order Comment: Speci men Type: BLOOD SPECIMENOrdering Facility: [facility] Address: [address] [place] [address] Performed By: #### 5 8410-2 ####[facility]ATORYCLIA [id number] [address] Nucleated RBC (Bld) [#/Vol] 10*3/uL Normal <0.01 [facility] Comment on above: Order Comment: Speci men Type: BLOOD SPECIMENOrdering Facility: [facility] Address: [address] [place] [address] Performed By: #### 5 8410-2 ####[facility]ATORYCLIA [id number] [address] [facility] Platelet mean volume (Bld) [Entitic vol] 11.8 fL Normal 9.0-12.7 [facility] Comment on above: Order Comment: Speci men Type: BLOOD SPECIMENOrdering Facility: [facility] Address: [address] [place] [address] Performed By: #### 5 8410-2 ####[facility]ATORYCLIA [id number] [address] Platelets (Bld) [#/Vol] 87 10*3/uL Low 150-400 [facility] Comment on above: Order Comment: Speci men Type: BLOOD SPECIMENOrdering Facility: [facility] Address: [address] [place] [address] Result Comment: No c lot detected. Performed By: #### 5 8410-2 ####[facility]ATORYCLIA [id number] [address] RBC (Bld) [#/Vol] 3.64 10*6/uL Low 4.20-6.00 [facility] Comment on above: Order Comment: Speci men Type: BLOOD SPECIMENOrdering Facility: [facility] Address: [address] [place] [address] Performed By: #### 5 8410-2 ####[facility]ATORYCLIA [id number] [address] [facility] WBC (Bld) [#/Vol] 9.94 10*3/uL Normal 3.70-11.00 [facility] Comment on above: Order Comment: Speci men Type: BLOOD SPECIMENOrdering Facility: [facility] Address: [address] [place], [place] [address] Performed By: #### 5 8410-2 ####[facility]ATORYCLIA [id number] [address] [employer] 02-19-2025 CNPN Telephone ([facility]) ANMOL REYNOLDS ([id number]) 1960 M Date Time Provider Department 02/19/25 ANMOL HERBERT During your visit today, we recorded the following information about you: Anmol Herbert MD 02/19/2025 2:58 PM Signed Needs outpt cysto, pyelograms, bilateral stent change vs removal in 2-3 weeks. Comfort Sotelo 03/08/2025 10:16 AM Signed Patient is scheduled and longterm was notified. 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] 06/13/2019 05/29/2020 [...] Comment: Speci men Type: BLOOD SPECIMENOrdering Facility: [facility] Address: [address] [place] [address] Performed By: #### 1 995-0 ####[facility]ATORYCLIA [id number] [address] STATES OF [facility] Calcium.ionized adjusted to pH 7.4 (Bld) [Moles/Vol] 1.05 mmol/L Low 1.08-1.30 [facility] Comment on above: Order Comment: Speci men Type: BLOOD SPECIMENOrdering Facility: [facility] Address: [address] [place] [address] Performed By: #### 1 995-0 ####[facility]ORATORYCLIA [id number] [address] [place] Comprehensive metabolic 2000 panelon 02-19-2025 Albumin [Mass/Vol] 2.3 g/dL Low 3.9-4.9 [facility] Comment on above: Order Comment: Speci men Type: BLOOD SPECIMENOrdering Facility: [facility] Address: [address] [place] [address] Performed By: #### 2 4323-8 ####[facility]ORATORYCLIA [id number] [address] [place] ALP [Catalytic activity/Vol] 112 U/L Normal 38-113 [facility] Comment on above: Order Comment: Speci men Type: BLOOD SPECIMENOrdering Facility: [facility] Address: [address] [place] [address] Performed By: #### 2 4323-8 ####[facility]ORATORYCLIA [id number] [address] STATES OF [facility] ALT With P-5'-P [Catalytic activity/Vol] 21 U/L Normal 10-54 [facility] Comment on above: Order Comment: Speci men Type: BLOOD SPECIMENOrdering Facility: [facility] Address: [address] [place] [address] Performed By: #### 2 4323-8 ####[facility]ORATORYCLIA [id number] [address] Anion gap [Moles/Vol] 10 mmol/L Normal 8-15 [facility] Comment on above: Order Comment: Speci men Type: BLOOD SPECIMENOrdering Facility: [facility] Address: [address] [place] [address] Performed By: #### 2 4323-8 ####[facility]ATORYCLIA [id number] [address] [place] AST With P-5'-P [Catalytic activity/Vol] 25 U/L Normal 14-40 [facility] Comment on above: Order Comment: Speci men Type: BLOOD SPECIMENOrdering Facility: [facility] Address: [address] [place] [address] Performed By: #### 2 4323-8 ####[facility]ORATORYCLIA [id number] [place] [address] [place] Bilirubin [Mass/Vol] 0.5 mg/dL Normal 0.2-1.3 [facility] Comment on above: Order Comment: Speci men Type: BLOOD SPECIMENOrdering Facility: [facility] Address: [address] [place] [address] Performed By: #### 2 4323-8 ####[facility] LABORATORYCLIA [id number] [place] [address] [place] Calcium [Mass/Vol] 7.8 mg/dL Low 8.5-10.2 [facility] Comment on above: Order Comment: Speci men Type: BLOOD SPECIMENOrdering Facility: [facility] Address: [address] [place] [address] Performed By: #### 2 4323-8 ####[facility]ORATORYCLIA [id number] [place] [address] [place] Chloride [Moles/Vol] 106 mmol/L Normal 98-107 [facility] Comment on above: Order Comment: Speci men Type: BLOOD SPECIMENOrdering Facility: [facility] Address: [address] [place] [address] Performed By: #### 2 4323-8 ####[facility]ORATORYCLIA [id number] [place] [address] [place] CO2 [Moles/Vol] 21 mmol/L Low 22-30 [facility] Comment on above: Order Comment: Speci men Type: BLOOD SPECIMENOrdering Facility: [facility] Address: [address] [place] [address] Performed By: #### 2 4323-8 ####[facility]ORATORYCLIA [id number] [place] [address] [place] Creatinine [Mass/Vol] 0.64 mg/dL Low 0.73-1.22 [facility] Comment on above: Order Comment: Alvaroliliana valdez Type: BLOOD SPECIMENOrdering Facility: [facility] Address: [address] [place] [address] Performed By: #### 2 4323-8 ####[facility]ORATORYCLIA [id number] [place] [address] [place] Creatinine and Glomerular filtration rate.predicted panel (S/P/Bld) 106 mL/min/1.73m??? Normal >=60 [facility] Comment on above: Order Comment: Jg valdez Type: BLOOD SPECIMENOrdering Facility: [facility] Address: [address] [place] [address] Result Comment: Leena mated Glomerular Filtration Rate [...] actual GFR. Performed By: #### 2 4323-8 ####[facility]ATORYCLIA [id number] [place] [address] [place] Glucose [Mass/Vol] 115 mg/dL High 74-99 [facility] Comment on above: Order Comment: Alvaroliliana valdez Type: BLOOD SPECIMENOrdering Facility: [facility] Address: [address] [place] [address] Result Comment: The [place] Diabetes Association (ADA) provides guidance for cutoff [...] Standards of Medical Care in Diabetes 2016, [place] Diabetes Association. Diabetes Care. 2016.39(Suppl 1). Performed By: #### 2 4323-8 ####[facility]ORATORYCLIA [id number] [address] [place] Potassium [Moles/Vol] 3.7 mmol/L Normal 3.7-5.1 [facility] Comment on above: Order Comment: Speci men Type: BLOOD SPECIMENOrdering Facility: [facility] Address: [address] [place] [address] Performed By: #### 2 4323-8 ####[facility]ORATORYCLIA [id number] [address] [place] Protein [Mass/Vol] 5.5 g/dL Low 6.3-8.0 [facility] Comment on above: Order Comment: Speci men Type: BLOOD SPECIMENOrdering Facility: [facility] Address: [address] [place] [address] Performed By: #### 2 4323-8 ####[facility]ORATORYCLIA [id number] [address] [facility] Sodium [Moles/Vol] 137 mmol/L Normal 136-144 [facility] Comment on above: Order Comment: Speci men Type: BLOOD SPECIMENOrdering Facility: [facility] Address: [address] [place] [address] Performed By: #### 2 4323-8 ####[facility]ATORYCLIA [id number] [address] [facility] Urea nitrogen [Mass/Vol] 36 mg/dL High 9-24 [facility] Comment on above: Order Comment: Speci men Type: BLOOD SPECIMENOrdering Facility: [facility] Address: [address] [place] [address] Performed By: #### 2 4323-8 ####[facility]ORATORYCLIA [id number] [address] [place] Urine Cultureon 02-19-2025 URC 412-25 Citrobacter freundii [place] Count 80,000-100,000 Providencia stuartii Providencia stuartii PMIR [place] Count >100,000 Proteus mirabilis [place] Count 25,000-50,000 Citrobacter freundii: REACTION Enterococcus faecalis [...] R Vancomycin Islt HARINDER 1 S Normal [facility] Comment on above: Performed By: #### L 501.6710, L101.9900, L501.8820 #### [facility] [address] [place], [address] aPTT PPPon 02-19-2025 aPTT Coag (PPP) [Time] 68.5 s High 23.0-32.4 [facility] Comment on above: Order Comment: Speci men Type: BLOOD SPECIMENOrdering Facility: [facility] Address: [address] [place] [address] Performed By: #### 1 4979-9 ####[facility]ATORYCLIA [id number] [address] [facility] aPTT Coag (PPP) [Time] 71.1 s High 23.0-32.4 [facility] Comment on above: Order Comment: Speci men Type: BLOOD SPECIMENOrdering Facility: [facility] Address: [address] [place] [address] Performed By: #### 1 4979-9 ####[facility]ATORYCLIA [id number] [address] CBC panel Auto (Bld)on 02-18 Erythrocyte distribution width (RBC) [Ratio] 14.9 % Normal 11.5-15.0 [facility] Comment on above: Order Comment: Speci men Type: BLOOD SPECIMENOrdering Facility: [facility] Address: [address] [place] [address] Performed By: #### 5 8410-2 ####[facility]ATORYCLIA [id number] [address] STATES [facility] Hematocrit (Bld) [Volume fraction] 33.9 % Low 39.0-51.0 [facility] Comment on above: Order Comment: Speci men Type: BLOOD SPECIMENOrdering Facility: [facility] Address: [address] [place] [address] Performed By: #### 5 8410-2 ####[facility]ATORYCLIA [id number] [address] [facility] Hemoglobin (Bld) [Mass/Vol] 11.3 g/dL Low 13.0-17.0 [facility] Comment on above: Order Comment: Speci men Type: BLOOD SPECIMENOrdering Facility: [facility] Address: [address] [place] [address] Performed By: #### 5 8410-2 ####[facility]ATORYCLIA [id number] [address] MCH (RBC) [Entitic mass] 30.3 pg Normal 26.0-34.0 [facility] Comment on above: Order Comment: Speci men Type: BLOOD SPECIMENOrdering Facility: [facility] Address: [address] [place] [address] Performed By: #### 5 8410-2 ####[facility]ATORYCLIA [id number] [address] [facility] MCHC (RBC) [Mass/Vol] 33.3 g/dL Normal 30.5-36.0 [facility] Comment on above: Order Comment: Speci men Type: BLOOD SPECIMENOrdering Facility: [facility] Address: [address] [place] [address] Performed By: #### 5 8410-2 ####[facility]ATORYCLIA [id number] [address] MCV (RBC) [Entitic vol] 90.9 fL Normal 80.0-100.0 [facility] Comment on above: Order Comment: Speci men Type: BLOOD SPECIMENOrdering Facility: [facility] Address: [address] [place] [address] Performed By: #### 5 8410-2 ####[facility]ATORYCLIA [id number] [address] Nucleated RBC (Bld) [#/Vol] 10*3/uL Normal <0.01 [facility] Comment on above: Order Comment: Speci men Type: BLOOD SPECIMENOrdering Facility: [facility] Address: [address] [place] [address] Performed By: #### 5 8410-2 ####[facility]ATORYCLIA [id number] [address] Platelet mean volume (Bld) [Entitic vol] 11.9 fL Normal 9.0-12.7 [facility] Comment on above: Order Comment: Speci men Type: BLOOD SPECIMENOrdering Facility: [facility] Address: [address] [place] [address] Performed By: #### 5 8410-2 ####[facility]ORATORYCLIA [id number] [place] [id number] [facility] Platelets (Bld) [#/Vol] 69 10*3/uL Low 150-400 A [facility] Comment on above: Order Comment: Speci men Type: BLOOD SPECIMENOrdering Facility: [facility] Address: [address] [place] [address] Result Comment: No c lot detected. Performed By: #### 5 8410-2 ####[facility]ATORYCLIA [id number] [address] RBC (Bld) [#/Vol] 3.73 10*6/uL Low 4.20-6.00 [facility] Comment on above: Order Comment: Speci men Type: BLOOD SPECIMENOrdering Facility: [facility] Address: [address] [place] [address] Performed By: #### 5 8410-2 ####[facility] LABORATORYCLIA [id number] [address] WBC (Bld) [#/Vol] 13.39 10*3/uL High 3.70-11.00 [facility] Comment on above: Order Comment: Speci men Type: BLOOD SPECIMENOrdering Facility: [facility] Address: [address] [place] [address] Performed By: #### 5 8410-2 ####[facility]ORATORYCLIA [id number] [address] CONSULT PROGon 02-18-2025 CONSULT PROG HNO ID: [id number] Author: TIMMY MARTINEZ RPh Service: Pharmacy Author [...] if there are questions. Timmy Martinez RPh [facility] CONSULT PROG HNO ID: [id number] Author: RADHA GRAHAM RPh Service: Pharmacy Author [...] any questions, please contact Radha Graham at [phone]. Estimated Creatinine Clearance: 86.2 mL/min (based on [...] Graham RPh February 18, 2025 7:17 AM [facility] Calcium.ionized [Moles/Vol]o n 02-18-2025 Calcium.ionized (BldV) [Mass/Vol] 1.07 mmol/L Low 1.08-1.30 [facility] Comment on above: Order Comment: Speci men Type: BLOOD SPECIMENOrdering Facility: [facility] Address: [address] [place] [address] Performed By: #### 1 995-0 ####[facility] LABORATORYCLIA [id number] [address] Calcium.ionized adjusted to pH 7.4 (Bld) [Moles/Vol] 1.07 mmol/L Low 1.08-1.30 [facility] Comment on above: Order Comment: Speci men Type: BLOOD SPECIMENOrdering Facility: [facility] Address: [address] [place] [address] Performed By: #### 1 995-0 ####[facility] LABORATORYCLIA [id number] [address] [facility] Comprehensive metabolic 2000 panelon 02-18-2025 Albumin [Mass/Vol] 2.3 g/dL Low 3.9-4.9 [facility] Comment on above: Order Comment: Speci men Type: BLOOD SPECIMENOrdering Facility: [facility] Address: [address] [place] [address] Performed By: #### 2 4323-8, 50134-6 ####[facility] LABORATORYCLIA [id number] [address] [facility] ALP [Catalytic activity/Vol] 115 U/L High 38-113 [facility] Comment on above: Order Comment: Speci men Type: BLOOD SPECIMENOrdering Facility: [facility] Address: [address] [place] [address] Performed By: #### 2 4323-8, 14360-7 ####[facility]ORATORYCLIA [id number] [address] ALT With P-5'-P [Catalytic activity/Vol] 25 U/L Normal 10-54 [facility] Comment on above: Order Comment: Speci men Type: BLOOD SPECIMENOrdering Facility: [facility] Address: [address] [place], [place] [address] [address] Performed By: #### 2 4323-8, ####[facility] LABORATORYCLIA [id number] [place] [address] [place] Anion gap [Moles/Vol] 11 mmol/L Normal 8-15 [facility] Comment on above: Order Comment: Speci men Type: BLOOD SPECIMENOrdering Facility: [facility] Address: [address] [place] [address] Performed By: #### 2 4322-8, ####[facility]ORATORYCLIA [id number] [place] [address] [place] AST With P-5'-P [Catalytic activity/Vol] 38 U/L Normal 14-40 [facility] Comment on above: Order Comment: Speci men Type: BLOOD SPECIMENOrdering Facility: [facility] Address: [address] [place] [address] Performed By: #### 2 8, ####[facility]ORATORYCLIA [id number] [place] [address] [place] Bilirubin [Mass/Vol] 0.6 mg/dL Normal 0.2-1.3 [facility] Comment on above: Order Comment: Speci men Type: BLOOD SPECIMENOrdering Facility: [facility] Address: [facility] [place] [address] Performed By: #### 2 4323-05, ####[facility]ORATORYCLIA [id number] [place] [address] [place] Calcium [Mass/Vol] 7.8 mg/dL Low 8.5-10.2 [facility] Comment on above: Order Comment: Speci men Type: BLOOD SPECIMENOrdering Facility: [facility] Address: [facility] [place] [address] Performed By: #### 2 4323-8, ####[facility]ORATORYCLIA [id number] [place] [address] [place] Chloride [Moles/Vol] 104 mmol/L Normal 98-107 [facility] Comment on above: Order Comment: Speci men Type: BLOOD SPECIMENOrdering Facility: [facility] Address: [address] [place] [address] Performed By: #### 2 4323-8, ####[facility] LABORATORYCLIA [id number] [place] [id number] [place] CO2 [Moles/Vol] 20 mmol/L Low 22-30 [facility] Comment on above: Order Comment: Speci men Type: BLOOD SPECIMENOrdering Facility: [facility] Address: [address] [place] [address] Performed By: #### 2 4323-8, ####[facility] LABORATORYCLIA [id number] [address] [place] Creatinine [Mass/Vol] 1.04 mg/dL Normal 0.73-1.22 [facility] Comment on above: Order Comment: Speci men Type: BLOOD SPECIMENOrdering Facility: [facility] Address: [address] [place] [address] Performed By: #### 2 4323-8, ####[facility]ORATORYCLIA [id number] [address] Creatinine and Glomerular filtration rate.predicted panel (S/P/Bld) 81 mL/min/1.73m??? Normal >=60 [facility] Comment on above: Order Comment: Speci men Type: BLOOD SPECIMENOrdering Facility: [facility] Address: [address] [place] [address] Result Comment: Leena mated Glomerular Filtration Rate [...] reflect actual GFR. Performed By: #### 2 432 ####[facility] LABORATORYCLIA [id number] [place] [address] [place] Glucose [Mass/Vol] 177 mg/dL High 74-99 [facility] Comment on above: Order Comment: Speci men Type: BLOOD SPECIMENOrdering Facility: [facility] Address: [address] [place] [address] Result Comment: [place] Diabetes Association (ADA) provides guidance for cutoff [...] Standards of Medical Care in Diabetes 2016, [place] Diabetes Association. Diabetes Care. 2016.39(Suppl 1). Performed By: #### 2 4323-05, ####[facility] [id number] [place] [address] [place] Potassium [Moles/Vol] 3.9 mmol/L Normal 3.7-5.1 [facility] Comment on above: Order Comment: Speci men Type: BLOOD SPECIMENOrdering Facility: [facility] Address: [address] [place] [address] Performed By: #### 2 4323-05, ####[facility]ORATORYCLIA [id number] [place] [address] [place] Protein [Mass/Vol] 5.8 g/dL Low 6.3-8.0 [facility] Comment on above: Order Comment: [place] men Type: BLOOD SPECIMENOrdering Facility: [facility] Address: [address] [place], [place] [address] Performed By: #### 2 4323-05, ####[facility]ORATORYCLIA [id number] [place] [address] [place] Sodium [Moles/Vol] 135 mmol/L Low 136-144 [facility] Comment on above: Order Comment: Speci men Type: BLOOD SPECIMENOrdering Facility: [facility] Address: [address] [place] [address] Performed By: #### 2 4323-8, 31337-7 ####[facility]ORATORYCLIA [id number] [place] [address] [place] Urea nitrogen [Mass/Vol] 37 mg/dL High 9-24 [facility] Comment on above: Order Comment: Speci men Type: BLOOD SPECIMENOrdering Facility: [facility] Address: [address] [place] [address] Performed By: #### 2 4323-8, ####[facility]ORATORYCLIA [id number] [place] [address] [place] Magnesium SerPl-mCncon 02-18 Magnesium [Mass/Vol] 2.3 mg/dL Normal 1.7-2.3 [facility] Comment on above: Order Comment: Speci men Type: BLOOD SPECIMENOrdering Facility: [facility] Address: [address] [place] [address] Performed By: #### 2 4323-8, ####[facility]ORATORYCLIA [id number] [place] [address] [place] aPTT PPPon 02-18-2025 aPTT Coag (PPP) [Time] 40.2 s High 23.0-32.4 [facility] Comment on above: Order Comment: Speci men Type: BLOOD SPECIMENOrdering Facility: [facility] Address: [address] [place] [address] Performed By: #### 1 4979-9 ####[facility]ORATORYCLIA [id number] [place] [address] [place] aPTT Coag (PPP) [Time] 35.5 s High 23.0-32.4 [facility] Comment on above: Order Comment: Speci men Type: BLOOD SPECIMENOrdering Facility: [facility] Address: [address] [place] [address] Performed By: #### 1 4979-9 ####[facility]ORATORYCLIA [id number] [address] aPTT Coag (PPP) [Time] 33.2 s High 23.0-32.4 [facility] Comment on above: Order Comment: Speci men Type: BLOOD SPECIMENOrdering Facility: [facility] Address: [address] [place] [address] Performed By: #### 1 4979-9 ####[facility]ORATORYCLIA [id number] [address] aPTT Coag (PPP) [Time] 51.0 s High 23.0-32.4 [facility] Comment on above: Order Comment: Speci men Type: BLOOD SPECIMENOrdering Facility: [facility] Address: [address] [place] [address] Performed By: #### 1 4979-9 ####[facility] LABORATORYCLIA [id number] [address] ALLIED HEALTHon 02-17-2025 ALLIED HEALTH HNO ID: [id number] Author: JANEL SIMEON RT(R) Service: Radiology Author [...] PATIENT PRESENTS WITH AN IMPLANTABLE OR ATTACHED LEASING COORDINATOR: No RADIOLOGY DEPARTMENT: General X-ray: Exam(s) Completed: [...] on above: Performed By: #### 3 2355-0 ####[facility]ORATORYCLIA [id number] [address] CBC panel Auto (Bld)on 02-17 Erythrocyte distribution width (RBC) [Ratio] 15.0 % Normal 11.5-15.0 [facility] Comment on above: Order Comment: Speci men Type: BLOOD SPECIMENOrdering Facility: [facility] Address: [address] [place] [address] Performed By: #### 5 8410-2 ####[facility]ORATORYCLIA [id number] [address] Hematocrit (Bld) [Volume fraction] 41.4 % Normal 39.0-51.0 [facility] Comment on above: Order Comment: Speci men Type: BLOOD SPECIMENOrdering Facility: [facility] Address: [address] [place] [address] Performed By: #### 5 8410-2 ####[facility]ORATORYCLIA [id number] [address] Hemoglobin (Bld) [Mass/Vol] 13.1 g/dL Normal 13.0-17.0 [facility] Comment on above: Order Comment: Speci men Type: BLOOD SPECIMENOrdering Facility: [facility] Address: [address] [place] [address] Performed By: #### 5 8410-2 ####[facility]ORATORYCLIA [id number] [address] MCH (RBC) [Entitic mass] 29.9 pg Normal 26.0-34.0 [facility] Comment on above: Order Comment: Speci men Type: BLOOD SPECIMENOrdering Facility: [facility] Address: [address] [place] [address] Performed By: #### 5 8410-2 ####[facility]ORATORYCLIA [id number] [address] MCHC (RBC) [Mass/Vol] 31.6 g/dL Normal 30.5-36.0 [facility] Comment on above: Order Comment: Speci men Type: BLOOD SPECIMENOrdering Facility: [facility] Address: [address] [place] [address] Performed By: #### 5 8410-2 ####[facility]ORATORYCLIA [id number] [address] MCV (RBC) [Entitic vol] 94.5 fL Normal 80.0-100.0 [facility] Comment on above: Order Comment: Speci men Type: BLOOD SPECIMENOrdering Facility: [facility] Address: [address] [place] [address] Performed By: #### 5 8410-2 ####[facility]ORATORYCLIA [id number] [address] Nucleated RBC (Bld) [#/Vol] 10*3/uL Normal <0.01 [facility] Comment on above: Order Comment: Speci men Type: BLOOD SPECIMENOrdering Facility: [facility] Address: [address] [place] [address] Performed By: #### 5 8410-2 ####[facility]ORATORYCLIA [id number] [address] Platelet mean volume (Bld) [Entitic vol] 12.0 fL Normal 9.0-12.7 [facility] Comment on above: Order Comment: Speci men Type: BLOOD SPECIMENOrdering Facility: [facility] Address: [address] [place] [address] Performed By: #### 5 8410-2 ####[facility]ORATORYCLIA [id number] [address] Platelets (Bld) [#/Vol] 64 10*3/uL Low 150-400 [facility] Comment on above: Order Comment: Speci men Type: BLOOD SPECIMENOrdering Facility: [facility] Address: [address] [place] [address] Result Comment: No c lot detected. Performed By: #### 5 8410-2 ####[facility]ORATORYCLIA [id number] [address] [place] RBC (Bld) [#/Vol] 4.38 10*6/uL Normal 4.20-6.00 [facility] Comment on above: Order Comment: Speci men Type: BLOOD SPECIMENOrdering Facility: [facility] Address: [address] [place] [address] Performed By: #### 5 8410-2 ####[facility]ORATORYCLIA [id number] [address] [facility] WBC (Bld) [#/Vol] 14.96 10*3/uL High 3.70-11.00 [facility] Comment on above: Order Comment: Speci men Type: BLOOD SPECIMENOrdering Facility: [facility] Address: [address] [place] [address] Performed By: #### 5 8410-2 ####[facility]ORATORYCLIA [id number] [address] Erythrocyte distribution width (RBC) [Ratio] 14.8 % Normal 11.5-15.0 [facility] Comment on above: Order Comment: Speci men Type: BLOOD SPECIMENOrdering Facility: [facility] Address: [address] [place] [address] Performed By: #### 5 8410-2 ####[facility]ORATORYCLIA [id number] [address] Hematocrit (Bld) [Volume fraction] 36.6 % Low 39.0-51.0 [facility] Comment on above: Order Comment: Speci men Type: BLOOD SPECIMENOrdering Facility: [facility] Address: [address] [place] [address] Performed By: #### 5 8410-2 ####[facility]ORATORYCLIA [id number] [address] [place] Hemoglobin (Bld) [Mass/Vol] 11.9 g/dL Low 13.0-17.0 [facility] Comment on above: Order Comment: Speci men Type: BLOOD SPECIMENOrdering Facility: [facility] Address: [address] [place] [address] Performed By: #### 5 8410-2 ####[facility]ORATORYCLIA [id number] [address] MCH (RBC) [Entitic mass] 30.1 pg Normal 26.0-34.0 [facility] Comment on above: Order Comment: Speci men Type: BLOOD SPECIMENOrdering Facility: [facility] Address: [address] [place] [address] Performed By: #### 5 8410-2 ####[facility]ORATORYCLIA [id number] [address] MCHC (RBC) [Mass/Vol] 32.5 g/dL Normal 30.5-36.0 [facility] Comment on above: Order Comment: Speci men Type: BLOOD SPECIMENOrdering Facility: [facility] Address: [address] [place] [address] Performed By: #### 5 8410-2 ####[facility]ORATORYCLIA [id number] [address] MCV (RBC) [Entitic vol] 92.7 fL Normal 80.0-100.0 [facility] Comment on above: Order Comment: Speci men Type: BLOOD SPECIMENOrdering Facility: [facility] Address: [address] [place] [address] Performed By: #### 5 8410-2 ####[facility]ORATORYCLIA [id number] [address] Nucleated RBC (Bld) [#/Vol] 10*3/uL Normal <0.01 [facility] Comment on above: Order Comment: Speci men Type: BLOOD SPECIMENOrdering Facility: [facility] Address: [address] [place] [address] Performed By: #### 5 8410-2 ####[facility]ORATORYCLIA [id number] [address] Platelet mean volume (Bld) [Entitic vol] 11.7 fL Normal 9.0-12.7 [facility] Comment on above: Order Comment: Speci men Type: BLOOD SPECIMENOrdering Facility: [facility] Address: [address] [place] [address] Performed By: #### 5 8410-2 ####[facility]ORATORYCLIA [id number] [place] [address] [place] Platelets (Bld) [#/Vol] 93 10*3/uL Low 150-400 [facility] Comment on above: Order Comment: Speci men Type: BLOOD SPECIMENOrdering Facility: [facility] Address: [address] [place] [address] Result Comment: No c lot detected. Performed By: #### 5 8410-2 ####[facility]ORATORYCLIA [id number] [address] [facility] RBC (Bld) [#/Vol] 3.95 10*6/uL Low 4.20-6.00 [facility] Comment on above: Order Comment: Speci men Type: BLOOD SPECIMENOrdering Facility: [facility] Address: [address] [place] [address] Performed By: #### 5 8410-2 ####[facility]ORATORYCLIA [id number] [address] [place] WBC (Bld) [#/Vol] 19.64 10*3/uL High 3.70-11.00 [facility] Comment on above: Order Comment: Speci men Type: BLOOD SPECIMENOrdering Facility: [facility] Address: [address] [place] [address] Performed By: #### 5 8410-2 ####[facility]ORATORYCLIA [id number] [address] CONSULTon 02-17-2025 CONSULT HNO ID: [id number] Author: GAYLE SCOTT MD Service: Infectious Disease [...] and UTI. Spinal cord injury residing at [facility], presented to [facility] 02/16/2025 for unresponsiveness when normally alert [...] [facility] CONSULT HNO ID: [id number] Author: ANMOL HERBERT MD Service: Urology Author Type: Resident Type: Consults Filed: 02/19/2025 14:56 Note Text: Attestation signed by Anmol Herbert MD at 02/19/2025 2:56 PM I saw and evaluated the patient. Discussed with the resident and agree with resident's findings and plan as documented in the resident's note. Reviewed [facility] hx and imaging. Currently improving. Discussed plan w/ ID (Dr. Scott) Plan on outpt cysto, pyelograms, stent change vs removal in 2-3 weeks. Anmol Herbert MD Urology Consult 02/16/2025 HISTORY OF PRESENT ILLNESS: The patient is a 64 year old male known to [facility] urology, with past medical history [...] hyperglycemia, with long-term current use of insulin ([facility]) 01/18/2021 Ureteral stone 11/25/2021 UTI (urinary tract infection) 11/26/2021 Vertebral osteomyelitis ([facility]) 01/04/2022 PAST SURGICAL HISTORY: PAST [...] CONSULT PROGon 02-17-2025 CONSULT PROG HNO ID: [id number] Author: JESSICA CLEMENT RPh Service: Pharmacy Author [...] questions, [place] [phone]. Age: [age] year old Allergies: ALLERGIES No [...] 12/02/2021 1246 13.7 Jessica Clement [facility] CONSULT PROG HNO ID: [id number] Author: YARI CAMARGO APRN.NETWORK AND THREAT SUPPORT SPECIALIST Service: Wound/Ostomy Author Type: Nurse Practitioner Type: Consult Progress Note Filed: 02/17/2025 10:33 Note Text: Summary: Inpatient Wound Care WOUND CARE SERVICE CONSULT POWDER PRESS OPERATOR NOTE SERVICE DATE: 02/17/2025 SERVICE TIME: 0809 [...] buttocks Subjective HISTORY OF PRESENT ILLNESS: Mr. Reyonlds is a 64 year old male who is seen today with Katlin Vasquez, Wound/assistant produce manager, and presented to hospital with complaints of [...] Chronic pain of right ankle 11/26/2021 Diabetes ([facility]) Elevated CA 19-9 level 08/21/2021 Epidural abscess (HCC) 01/04/2022 MRSA bacteremia 11/27/2021 Neuropathy Nicotine use disorder, F17.2 06/14/2019 Pilonidal cyst with abscess 12/31/2020 Pilonidal cyst without abscess 05/29/2020 Pyelonephritis 11/27/2021 Sciatica Severe protein-calorie malnutrition (HCC) 09/04/2021 Type 2 diabetes mellitus with hyperglycemia, with long-term current use of insulin ([facility]) 01/18/2021 Ureteral stone 11/25/2021 UTI (urinary tract infection) 11/26/2021 Vertebral osteomyelitis ([facility]) 01/04/2022 PAST SURGICAL HISTORY Procedure Laterality [...] [facility] CONSULT PR[facility] HNO ID: [id number] Author: [place] RPh Service: Pharmacy Author [...] dose of therapy given in ER @ 8 on 02-16-2025 of Vancomycin 1.5 grams IV [...] have any questions, [place] [phone]. Age: [age] year old Allergies: ALLERGIES No [...] 13.7 12/01/2021 0428 14.2 [place], [facility] Normal [facility] Comprehensive metabolic 2000 panelon 02-17-2025 Albumin [Mass/Vol] 2.5 g/dL Low 3.9-4.9 [facility] Comment on above: Order Comment: Speci men Type: BLOOD SPECIMENOrdering Facility: [facility] Address: [address] [place] [address] Performed By: #### 2 777-1, 23157-2 ####[facility] LABORATORYCLIA [id number] [address] [place] [facility] ALP [Catalytic activity/Vol] 174 U/L High 38-113 [facility] Comment on above: Order Comment: Speci men Type: BLOOD SPECIMENOrdering Facility: [facility] Address: [address] [place] [address] Performed By: #### 2 777-1, 75148-1 ####[facility]ORATORYCLIA [id number] [place] [address] [place] ALT With P-5'-P [Catalytic activity/Vol] 21 U/L Normal 10-54 [facility] Comment on above: Order Comment: Speci men Type: BLOOD SPECIMENOrdering Facility: [facility] Address: [address] [place] [address] Performed By: #### 2 777-1, 07919-3 ####[facility]ORATORYCLIA [id number] [address] [place] Anion gap [Moles/Vol] 11 mmol/L Normal 8-15 [facility] Comment on above: Order Comment: Speci men Type: BLOOD SPECIMENOrdering Facility: [facility] Address: [address] [place] [address] Performed By: #### 2 777-1, 12713-0 ####[facility]ORATORYCLIA [id number] [place] [address] [place] AST With P-5'-P [Catalytic activity/Vol] 41 U/L High 14-40 [facility] Comment on above: Order Comment: Speci men Type: BLOOD SPECIMENOrdering Facility: [facility] Address: [address] [place] [address] Performed By: #### 2 777-1, 17795-0 ####[facility]ORATORYCLIA [id number] [place] [address] [place] Bilirubin [Mass/Vol] 0.9 mg/dL Normal 0.2-1.3 [facility] Comment on above: Order Comment: Speci men Type: BLOOD SPECIMENOrdering Facility: [facility] Address: [address] [place] [address] Performed By: #### 2 777-1, 49821-7 ####[facility]ORATORYCLIA [id number] [place] [address] [place] Calcium [Mass/Vol] 8.2 mg/dL Low 8.5-10.2 [facility] Comment on above: Order Comment: Speci men Type: BLOOD SPECIMENOrdering Facility: [facility] Address: [address] [place] [address] Performed By: #### 2 777-1, 83677-9 ####[facility]ORATORYCLIA [id number] [place] [address] [place] Chloride [Moles/Vol] 104 mmol/L Normal 98-107 [facility] Comment on above: Order Comment: Speci men Type: BLOOD SPECIMENOrdering Facility: [facility] Address: [address] [place] [address] Performed By: #### 2 777-1, 44707-0 ####[facility]ORATORYCLIA [id number] [place] [address] [place] CO2 [Moles/Vol] 17 mmol/L Low 22-30 [facility] Comment on above: Order Comment: Speci men Type: BLOOD SPECIMENOrdering Facility: [facility] Address: [address] [id number] Performed By: #### 2 777-1, 02149-7 ####[facility] [id number] [place] [address] [place] [facility] Creatinine [Mass/Vol] 1.90 mg/dL High 0.73-1.22 [facility] Comment on above: Order Comment: Speci men Type: BLOOD SPECIMENOrdering Facility: [facility] Address: [address] [place] [address] Performed By: #### 2 777-1, 12169-4 ####[facility] [id number] [place] [id number] [facility] Creatinine and Glomerular filtration rate.predicted panel (S/P/Bld) 39 mL/min/1.73m??? Low >=60 [facility] Comment on above: Order Comment: Speci men Type: BLOOD SPECIMENOrdering Facility: [facility] Address: [address] [place] [address] Result Comment: Leena mated Glomerular Filtration Rate [...] actual GFR. Performed By: #### 2 777-1, 65900-4 ####[facility]ORATORYCLIA [id number] [place] [id number] [place] Glucose [Mass/Vol] 225 mg/dL High 74-99 [facility] Comment on above: Order Comment: Speci men Type: BLOOD SPECIMENOrdering Facility: [facility] Address: [address] [place] [address] Result Comment: The [place] Diabetes Association (ADA) provides guidance for cutoff [...] Standards of Medical Care in Diabetes 2016, [place] Diabetes Association. Diabetes Care. 2016.39(Suppl 1). Performed By: #### 2 777-1, 16857-1 ####[facility]ORATORYCLIA [id number] [place] [address] [place] Potassium [Moles/Vol] 4.7 mmol/L Normal 3.7-5.1 [facility] Comment on above: Order Comment: Jg valdez Type: BLOOD SPECIMENOrdering Facility: [facility] Address: [address] [place] [address] Performed By: #### 2 777-1, 81793-9 ####[facility]ATORYCLIA [id number] [place] [address] [place] Protein [Mass/Vol] 6.0 g/dL Low 6.3-8.0 [facility] Comment on above: Order Comment: Jg valdez Type: BLOOD SPECIMENOrdering Facility: [facility] Address: [address] [place] [address] Performed By: #### 2 777-1, 45977-9 ####[facility]ATORYCLIA [id number] [place] [address] [place] Sodium [Moles/Vol] 132 mmol/L Low 136-144 [facility] Comment on above: Order Comment: [place] men Type: BLOOD SPECIMENOrdering Facility: [facility] Address: [address] [place] [address] Performed By: #### 2 777-1, 61491-0 ####[facility]ATORYCLIA [id number] [place] [address] [place] Urea nitrogen [Mass/Vol] 34 mg/dL High 9-24 [facility] Comment on above: Order Comment: [place] men Type: BLOOD SPECIMENOrdering Facility: [facility] Address: [address] [place] [address] Performed By: #### 2 777-1, 00415-3 ####[facility]ORATORYCLIA [id number] [place] [id number] [place] ECG COMPLETEon 02-17-2025 ECG COMPLETE Ventricular Rate : 152 BPM QRS Duration : 100 ms Q-T Interval : 300 ms QTC Calculation(Bazett) : 477 ms Calculated R Randolph : 16 degrees Calculated T Randolph : 7 degrees ATRIAL FIBRILLATION WITH RAPID VENTRICULAR RESPONSE NONSPECIFIC T WAVE ABNORMALITY ABNORMAL ECG WHEN COMPARED WITH ECG OF 16-Feb-2025 19:16, ATRIAL FIBRILLATION HAS REPLACED SINUS RHYTHM NONSPECIFIC T WAVE ABNORMALITY NOW EVIDENT IN INFERIOR LEADS Confirmed by MANISHA ANDERSEN MD ([id number]) on 02/17/2025 9:11:43 AM NAME : ANMOL REYNOLDS PID : [id number] : 1960 Gender : Male Race : ORD : [id number] Procedure Date : Feb 17 2025 07:55:31 Edit Date : Feb 17 2025 09:11:44 Diagnosis: ATRIAL FIBRILLATION WITH RAPID VENTRICULAR RESPONSE NONSPECIFIC T WAVE ABNORMALITY ABNORMAL ECG WHEN COMPARED WITH ECG OF 16-Feb-2025 19:16, ATRIAL FIBRILLATION HAS REPLACED SINUS RHYTHM NONSPECIFIC T WAVE ABNORMALITY NOW EVIDENT IN INFERIOR LEADS Confirmed by MANISHA ANDERSEN MD ([id number]) on 02/17/2025 9:11:43 AM Test Reason : Arrhythmia Location : [address] : [place] [address] Overread By : MANISHA ANDERSEN MD Edited By : MANISHA ANDERSEN MD Referred By : , Acquired by : SANDHYA ABURTO [facility] ECHOon 02-17-2025 Echocardiography Echocardiography Report: Transthoracic Echo [facility] Date of service: 02/17/2025 10:58:00 AM [facility] Ordering physician: JON MCDONALD Indication: Sustained atrial fibrillation Technologist: Marie Magana [facility] Interpreting physician: Naresh Yo MD PATIENT: [...] * * * Final * * * [employer] [facility] : [id number] amicsSISUID Normal [facility] Gas and Carbon monoxide pane l (BldV)on 02-17-2025 BASE DEFICIT, VENOUS -7 mmol/L Low -2-0 [facility] Comment on above: Order Comment: Jg valdez Type: VENOUS BLOOD SPECIMENOrdering Facility: [facility] Address: [address] [place] [address] Performed By: #### 2 4344-4 ####[facility]ORATORYCLIA [id number] [address] [place] Body temperature 99.86 [degF] Normal [facility] Comment on above: Order Comment: [place] courtney Type: VENOUS BLOOD SPECIMENOrdering Facility: [facility] Address: [address] [place] [address] Performed By: #### 2 4344-4 ####[facility]ORATORYCLIA [id number] [place] [address] [place] Calcium.ionized (BldV) [Mass/Vol] 1.17 mmol/L Normal 1.08-1.30 [facility] Comment on above: Order Comment: Speci men Type: VENOUS BLOOD SPECIMENOrdering Facility: [facility] Address: [address] [place] [address] Performed By: #### 2 4344-4 ####[facility]ORATORYCLIA [id number] [place] [address] [place] Calcium.ionized adjusted to pH 7.4 (BldA) [Moles/Vol] 1.12 mmol/L Normal 1.08-1.30 [facility] Comment on above: Order Comment: Speci men Type: VENOUS BLOOD SPECIMENOrdering Facility: [facility] Address: [address] [place] [address] Performed By: #### 2 4344-4 ####[facility]ORATORYCLIA [id number] [address] [place] Carboxyhemoglobin (BldV) [Mass fraction] 1.1 % Normal 0.0-2.0 [facility] Comment on above: Order Comment: Speci men Type: VENOUS BLOOD SPECIMENOrdering Facility: [facility] Address: [address] [place] [address] Result Comment: Carb oxyhemoglobin Reference Range for Smokers: 2.0-8.0% Performed By: #### 2 4344-4 ####[facility]ORATORYCLIA [id number] [place] [address] [place] Chloride [Moles/Vol] 107 mmol/L High 97-105 [facility] Comment on above: Order Comment: Speci men Type: VENOUS BLOOD SPECIMENOrdering Facility: [facility] Address: [address] [place] [address] Performed By: #### 2 4344-4 ####[facility]ATORYCLIA [id number] [place] [address] [place] CO2 (BldV) [Partial pressure] 38 mm[Hg] Low 42-55 [facility] Comment on above: Order Comment: Speci men Type: VENOUS BLOOD SPECIMENOrdering Facility: [facility] Address: [address] [place] [address] Performed By: #### 2 4344-4 ####[facility]ORATORYCLIA [id number] [address] [place] CO2 adjusted to patient's actual temperature (BldV) [Partial pressure] 39 mmHg Low 42-55 [facility] Comment on above: Order Comment: Speci men Type: VENOUS BLOOD SPECIMENOrdering Facility: [facility] Address: [address] [place] [address] Performed By: #### 2 4344-4 ####[facility]ORATORYCLIA [id number] [address] [place] Glucose [Mass/Vol] 236 mg/dL High 60-105 [facility] Comment on above: Order Comment: Speci men Type: VENOUS BLOOD SPECIMENOrdering Facility: [facility] Address: [address] [place] [address] Performed By: #### 2 4344-4 ####[facility]ATORYCLIA [id number] [address] [place] HCO3 (Bld) [Moles/Vol] 18 mmol/L Low 24-28 [facility] Comment on above: Order Comment: Speci men Type: VENOUS BLOOD SPECIMENOrdering Facility: [facility] Address: [address] [place] [address] Performed By: #### 2 4344-4 ####[facility]ATORYCLIA [id number] [address] [place] Hematocrit (Bld) [Volume fraction] 37.3 % Low 39.0-51.0 [facility] Comment on above: Order Comment: Speci men Type: VENOUS BLOOD SPECIMENOrdering Facility: [facility] Address: [address] [place] [address] Performed By: #### 2 4344-4 ####[facility]ATORYCLIA [id number] [address] [place] Hemoglobin (Bld) [Mass/Vol] 12.1 g/dL Low 13.0-17.0 [facility] Comment on above: Order Comment: Speci men Type: VENOUS BLOOD SPECIMENOrdering Facility: [facility] Address: [address] [place] [address] Performed By: #### 2 4344-4 ####[facility]ORYCLIA [id number] [address] Lactate [Moles/Vol] 2.2 mmol/L Normal 0.5-2.2 [facility] Comment on above: Order Comment: Speci men Type: VENOUS BLOOD SPECIMENOrdering Facility: [facility] Address: [address] [place] [address] Performed By: #### 2 4344-4 ####[facility]ORATORYCLIA [id number] [address] Methemoglobin (Bld) [Mass fraction] 0.8 % Normal 0.0-1.5 [facility] Comment on above: Order Comment: Speci men Type: VENOUS BLOOD SPECIMENOrdering Facility: [facility] Address: [address] [place] [address] Performed By: #### 2 4344-4 ####[facility]ORATORYCLIA [id number] [address] O2 THERAPY VENT=Ventilator Normal [facility] Comment on above: Order Comment: Speci men Type: VENOUS BLOOD SPECIMENOrdering Facility: [facility] Address: [address] [place] [address] Performed By: #### 2 4344-4 ####[facility]ATORYCLIA [id number] [address] [place] Oxygen (BldV) [Partial pressure] 65 mm[Hg] High 35-45 [facility] Comment on above: Order Comment: Speci men Type: VENOUS BLOOD SPECIMENOrdering Facility: [facility] Address: [address] [place] [address] Performed By: #### 2 4344-4 ####[facility]ORYCLIA [id number] [address] [place] Oxygen adjusted to patient's actual temperature (BldV) [Partial pressure] 68 mmHg High 35-45 [facility] Comment on above: Order Comment: Speci men Type: VENOUS BLOOD SPECIMENOrdering Facility: [facility] Address: [address] [place] [address] Performed By: #### 2 4344-4 ####[facility]ATORYCLIA [id number] [place] [id number] [place] Oxygen saturation in Venous blood 90 % High 60-85 [facility] Comment on above: Order Comment: Speci men Type: VENOUS BLOOD SPECIMENOrdering Facility: [facility] Address: [address] [place] [address] Performed By: #### 2 4344-4 ####[facility]ATORYCLIA [id number] [place] [id number] [place] Oxyhemoglobin (BldV) [Mass fraction] 89 % High 60-85 [facility] Comment on above: Order Comment: Speci men Type: VENOUS BLOOD SPECIMENOrdering Facility: [facility] Address: [address] [place] [address] Performed By: #### 2 4344-4 ####[facility]ATORYCLIA [id number] [place] [address] [place] pH (BldV) 7.31 [pH] Low 7.32-7.42 [facility] Comment on above: Order Comment: Speci men Type: VENOUS BLOOD SPECIMENOrdering Facility: [facility] Address: [address] [place] [address] Performed By: #### 2 4344-4 ####[facility]ATORYCLIA [id number] [place] [address] [place] pH adjusted to patient's actual temperature (BldV) 7.30 Low 7.32-7.42 [facility] Comment on above: Order Comment: Speci men Type: VENOUS BLOOD SPECIMENOrdering Facility: [facility] Address: [address] [place] [address] Performed By: #### 2 4344-4 ####[facility]ATORYCLIA [id number] [place] [id number] [place] Potassium [Moles/Vol] 4.7 mmol/L Normal 3.5-5.0 [facility] Comment on above: Order Comment: Speci men Type: VENOUS BLOOD SPECIMENOrdering Facility: [facility] Address: [address] [place] [address] Performed By: #### 2 4344-4 ####[facility]ATORYCLIA [id number] [place] [id number] [place] [facility] Sodium [Moles/Vol] 134 mmol/L Low 136-144 [facility] Comment on above: Order Comment: Speci men Type: VENOUS BLOOD SPECIMENOrdering Facility: [facility] Address: [address] [place] [address] Performed By: #### 2 4344-4 ####[facility]ORATORYCLIA [id number] [address] STATES OF [facility] NURSING PROGon 02-17-2025 NURSING PROG HNO ID: [id number] Author: ARLEN BUTLER RN Service: Nursing Author Type: Registered Nurse Type: Nursing Progress Note Filed: 02/17/2025 07:12 Note Text: Dr. Story and Dr. Gama at bedside. Pt in Afib rhythm. Order for 2 grams Magnesium IV Normal [facility] NUTRITIONon 02-17-2025 NUTRITION HNO ID: [id number] Author: DARA MCDUFFIE RD Service: Nutrition Therapy [...] h/o paraplegia and wounds admitted from a [place] after being found unresponsive with concerns for sepsis. Intubated in ICU. Intake History: Nutrition Intake Prior to Admission: Greater than 75% estimated energy needs Dosing Weight: 74 kg (163 lb 2.3 oz) Dosing Weight Type: [place] body weight (adjusted for paraplegia) Estimated kilocalorie needs: 1850-2220kcals Calorie Calculation Method: 25-30 kcals/kg Estimated protein needs (grams): 111-148gms Grams protein determined by: 1.5 - 2.0 g/kg (wound healing if renal fxn continues to improve) Diet Orders (From admission, onward) Start Ordered 02/17/25214 DIET NPO START NOW 02/17/25 0204 Anthropometrics: [...] Airways Drain Duration Indwelling Urinary Catheter 02/16/252125 [facility] Coude 20 Fr <1 day [...] Comment: Speci men Type: BLOOD SPECIMENOrdering Facility: [facility] Address: [facility] [place] [address] Result Comment: Lorna min K Antagonist (VKA) Therapeutic Range: INR 2 to 3 (Target INR of 2.5) Note: For patients treated with VKA drugs, such as warfarin, the [place] College [employer] Chest Physicians 2012 Guideline recommends [...] Chest 2012, 141:7S-47S Marcela RA, et al. [facility] 2017, 70: 252-289 Performed By: #### 1 4979-9, 93410-5 ####[facility]CLIA [id number] [place] [address] [place] PT Coag (PPP) [Time] 12.4 s Normal 9.7-13.0 [facility] Comment on above: Order Comment: Jg valdez Type: BLOOD SPECIMENOrdering Facility: [facility] Address: [address] [place] [address] Performed By: #### 1 4979-9, 31820-5 ####[facility]CLIA [id number] [place] [address] [place] Phosphate SerPl-mCncon 02-17 Phosphate [Mass/Vol] 4.4 mg/dL Normal 2.7-4.8 [facility] Comment on above: Order Comment: Jg valdez Type: BLOOD SPECIMENOrdering Facility: [facility] Address: [address] [place] [address] Performed By: #### 2 777-1, 32924-8 ####[facility]ORATORYCLIA [id number] [place] [address] [place] STAPHYLOCOCCUS AUREUS AND MR SA SCREEN, PCR, NASALon 02-17-2025 S. aureus and MRSA panel JOSSY+probe (Nose) Methicillin-SUSCEPTIB LE Staphylococcus aureus Detected Abnormal Not Detected [facility] Comment on above: Order Comment: Jg valdez Type: SWABOrdering Facility: [facility] Address: [address] [place], [place] [address] Performed By: #### S APCR ####[facility]ORATORYCLIA [id number] [address] OF [facility] THERAPY NTon 02-17-2025 THERAPY NT HNO ID: [id number] Author: SANDHYA ABURTO RRT Service: Respiratory Therapy [...] 02-17-2025 Vancomycin [Mass/Vol] 6.1 ug/mL Low 10.0-20.0 [facility] Comment on above: Order Comment: Speci men Type: BLOOD SPECIMENOrdering Facility: [facility] Address: [address] [place] [address] Result Comment: Refe rence ranges and high/low indicator flags are provided as general guidelines only. The treating physician must determine appropriate target levels/dosing based on the specific clinical situation. Performed By: #### 4 091-5 ####[facility]ATORYCLIA [id number] [address] XR ABDOMEN 1V SUPINEon 02-17 XR ABDOMEN [...] The side port overlies the GE junction. Director Of Rehabilitation And Wellness: PSCB Transcribe Date/Time: Feb 17 2025 11:05A Dictated [...] Comment: Speci men Type: BLOOD SPECIMENOrdering Facility: [facility] Address: [address] [place] [address] Performed By: #### 1 4979-9 ####[facility]ATORYCLIA [id number] [address] aPTT Coag (PPP) [Time] EXTREMELY ABNORMA L RESULT. No clot detected at 320 seconds. Refer to anticoagulation nomogram for further actions. Critically abnormal (none) [facility] Comment on above: Order Comment: Speci men Type: BLOOD SPECIMENOrdering Facility: [facility] Address: [address] [place] [address] Performed By: #### 1 4979-9 ####[facility]ATORYCLIA [id number] [address] aPTT Coag (PPP) [Time] 36.7 s High 23.0-32.4 [facility] Comment on above: Order Comment: Speci men Type: BLOOD SPECIMENOrdering Facility: [facility] Address: [address] [place] [address] Performed By: #### 1 4979-9, 60440-3 ####[facility]ORATORYCLIA [id number] [place] [address] [facility] ALLIED HEALTHon 02-16-2025 ALLIED HEALTH HNO ID: [id number] Author: DILCIA BASILIO RT(R) Service: ? Author [...] PATIENT PRESENTS WITH AN IMPLANTABLE OR ATTACHED LEASING COORDINATOR: No ALLERGIES: Reviewed and unchanged CONTRAST ALLERGY: [...] on above: Performed By: #### 6 00-7 ####[facility]ATORYCLIA [id number] [place] [address] [place] Bacteria identified Cx [...] >=.5 , Resistant >=1 ORGANISM ID: 5 (KOSTA STHARVEY) ------ ANTIBIOTIC INTERPRETATION HARINDER STATUS REFERENCE RANGE [...] above: Performed By: #### 6 00-7 #### [facility]ENTERIA [id number] [address] [place] [address] [place] Bacteria Ur Culton [...] Comment on above: Performed By: #### 2 6880-8, 630-4 ####[facility]ATORYCLIA [id number] [place] [address] [place] CBC W Auto Differential pane l (Bld)on 02-16-2025 Basophils (Bld) [#/Vol] 0.00 10*3/uL Normal <0.11 [facility] Comment on above: Order Comment: Speci men Type: BLOOD SPECIMENOrdering Facility: [facility] Address: [address] [place] [address] Performed By: #### 5 7021-8 ####[facility]ATORYCLIA [id number] [address] Basophils/100 WBC (Bld) 0.0 % Normal [facility] Comment on above: Order Comment: Speci men Type: BLOOD SPECIMENOrdering Facility: [facility] Address: [address] [place] [address] Performed By: #### 5 7021-8 ####[facility]ORYCLIA [id number] [address] Differential cell count method Nom (Bld) Manual Normal [facility] Comment on above: Order Comment: Speci men Type: BLOOD SPECIMENOrdering Facility: [facility] Address: [address] [place] [address] Performed By: #### 5 7021-8 ####[facility]ORATORYCLIA [id number] [address] [place] Eosinophils (Bld) [#/Vol] 0.00 10*3/uL Normal <0.46 [facility] Comment on above: Order Comment: Speci men Type: BLOOD SPECIMENOrdering Facility: [facility] Address: [address] [place] [address] Performed By: #### 5 7021-8 ####[facility]ORYCLIA [id number] [address] [place] Eosinophils/100 WBC (Bld) 0.0 % Normal [facility] Comment on above: Order Comment: Speci men Type: BLOOD SPECIMENOrdering Facility: [facility] Address: [address] [place] [address] Performed By: #### 5 7021-8 ####[facility]ATORYCLIA [id number] [address] [place] Erythrocyte distribution width (RBC) [Ratio] 14.5 % Normal 11.5-15.0 [facility] Comment on above: Order Comment: Speci men Type: BLOOD SPECIMENOrdering Facility: [facility] Address: [address] [place] [address] Performed By: #### 5 7021-8 ####[facility]ATORYCLIA [id number] [address] [place] Hematocrit (Bld) [Volume fraction] 34.9 % Low 39.0-51.0 [facility] Comment on above: Order Comment: Speci men Type: BLOOD SPECIMENOrdering Facility: [facility] Address: [address] [place] [address] Performed By: #### 5 7021-8 ####[facility]ATORYCLIA [id number] [address] [place] Hemoglobin (Bld) [Mass/Vol] 11.6 g/dL Low 13.0-17.0 [facility] Comment on above: Order Comment: Speci men Type: BLOOD SPECIMENOrdering Facility: [facility] Address: [address] [place] [address] Performed By: #### 5 7021-8 ####[facility]ORYCLIA [id number] [address] [place] Lymphocytes (Bld) [#/Vol] 0.31 10*3/uL Low 1.00-4.00 [facility] Comment on above: Order Comment: Speci men Type: BLOOD SPECIMENOrdering Facility: [facility] Address: [address] [place] [address] Performed By: #### 5 7021-8 ####[facility]ORYCLIA [id number] [address] [place] Lymphocytes/100 WBC (Bld) 3.0 % Normal [facility] Comment on above: Order Comment: Speci men Type: BLOOD SPECIMENOrdering Facility: [facility] Address: [address] [place] [address] Performed By: #### 5 7021-8 ####[facility]ATORYCLIA [id number] [address] STATES OF [facility] MCH (RBC) [Entitic mass] 30.1 pg Normal 26.0-34.0 [facility] Comment on above: Order Comment: Speci men Type: BLOOD SPECIMENOrdering Facility: [facility] Address: [address] [place] [address] Performed By: #### 5 7021-8 ####[facility]ORYCLIA [id number] [address] [place] MCHC (RBC) [Mass/Vol] 33.2 g/dL Normal 30.5-36.0 [facility] Comment on above: Order Comment: Speci men Type: BLOOD SPECIMENOrdering Facility: [facility] Address: [address] [place] [address] Performed By: #### 5 7021-8 ####[facility]ORYCLIA [id number] [address] MCV (RBC) [Entitic vol] 90.6 fL Normal 80.0-100.0 A [facility] Comment on above: Order Comment: Speci men Type: BLOOD SPECIMENOrdering Facility: [facility] Address: [address] [place] [address] Performed By: #### 5 7021-8 ####[facility]ORYCLIA [id number] [address] Metamyelocytes/100 WBC (Bld) 3.0 % Normal [facility] Comment on above: Order Comment: Speci men Type: BLOOD SPECIMENOrdering Facility: [facility] Address: [address] [place] [address] Performed By: #### 5 7021-8 ####[facility]ORATORYCLIA [id number] [address] [place] Monocytes (Bld) [#/Vol] 0.41 10*3/uL Normal <0.87 [facility] Comment on above: Order Comment: Speci men Type: BLOOD SPECIMENOrdering Facility: [facility] Address: [address] [place] [address] Performed By: #### 5 7021-8 ####[facility] LABORATORYCLIA [id number] [address] Monocytes/100 WBC (Bld) 4.0 % Normal A [facility] Comment on above: Order Comment: Speci men Type: BLOOD SPECIMENOrdering Facility: [facility] Address: [address] [place] [address] Performed By: #### 5 7021-8 ####[facility]ORATORYCLIA [id number] [address] [place] Neutrophils (Bld) [#/Vol] 9.26 10*3/uL High 1.45-7.50 [facility] Comment on above: Order Comment: Speci men Type: BLOOD SPECIMENOrdering Facility: [facility] Address: [address] [place] [address] Performed By: #### 5 7021-8 ####[facility]ORATORYCLIA [id number] [address] Neutrophils/100 WBC (Bld) 90.0 % Normal [facility] Comment on above: Order Comment: Speci men Type: BLOOD SPECIMENOrdering Facility: [facility] Address: [address] [place] [address] Performed By: #### 5 7021-8 ####[facility]ORATORYCLIA [id number] [address] [place] Nucleated RBC (Bld) [#/Vol] 10*3/uL Normal <0.01 [facility] Comment on above: Order Comment: Speci men Type: BLOOD SPECIMENOrdering Facility: [facility] Address: [address] [place] [address] Performed By: #### 5 7021-8 ####[facility]ORATORYCLIA [id number] [address] Nucleated RBC/100 WBC (Bld) [Ratio] 0.0 /100 WBC Normal [facility] Comment on above: Order Comment: Speci men Type: BLOOD SPECIMENOrdering Facility: [facility] Address: [address] [place] [address] Performed By: #### 5 7021-8 ####[facility]ORATORYCLIA [id number] [address] Platelet mean volume (Bld) [Entitic vol] 10.6 fL Normal 9.0-12.7 [facility] Comment on above: Order Comment: Speci men Type: BLOOD SPECIMENOrdering Facility: [facility] Address: [address] [place] [address] Performed By: #### 5 7021-8 ####[facility]ORATORYCLIA [id number] [address] STATES OF [facility] Platelets (Bld) [#/Vol] 108 10*3/uL Low 150-400 [facility] Comment on above: Order Comment: Speci men Type: BLOOD SPECIMENOrdering Facility: [facility] Address: [address] [place] [address] Result Comment: No c lot detected. Performed By: #### 5 7021-8 ####[facility]ORATORYCLIA [id number] [address] Platelets Estimate (Bld) [#/Vol] Decreased Normal [facility] Comment on above: Order Comment: Speci men Type: BLOOD SPECIMENOrdering Facility: [facility] Address: [address] [place] [address] Performed By: #### 5 7021-8 ####[facility]ORATORYCLIA [id number] [address] [place] RBC (Bld) [#/Vol] 3.85 10*6/uL Low 4.20-6.00 [facility] Comment on above: Order Comment: Speci men Type: BLOOD SPECIMENOrdering Facility: [facility] Address: [address] [place] [address] Performed By: #### 5 7021-8 ####[facility]ORATORYCLIA [id number] [address] OF [facility] [place] Reviewed: unremarkable Normal [facility] Comment on above: Order Comment: Speci men Type: BLOOD SPECIMENOrdering Facility: [facility] Address: [address] [place] [address] Performed By: #### 5 7021-8 ####[facility]ORATORYCLIA [id number] [address] OF [facility] WBC (Bld) [#/Vol] 10.29 10*3/uL Normal 3.70-11.00 [facility] Comment on above: Order Comment: Speci men Type: BLOOD SPECIMENOrdering Facility: [facility] Address: [address] [place] [address] Performed By: #### 5 7021-8 ####[facility]ORATORYCLIA [id number] [address] [place] CT ABD/PEL W IVCONon 05-15-[address] ABD/PEL W IVCON * * *Final Report* * * DATE OF EXAM: Feb 16 2025 8:33PM [facility] 0530 - CT ABD/PEL W IVCON [...] 8. Details above. 9. Follow-up as indicated. Director Of Rehabilitation And Wellness: CECILIA Transcribe Date/Time: Feb 16 2025 10:02P [...] DATE OF EXAM: Feb 16 2025 8:33PM [facility] 0504 - CT BRAIN WO IVCON [...] involving the major extra or intracranial arteries. Director Of Rehabilitation And Wellness: [facility] Transcribe Date/Time: Feb 16 2025 9:23P Dictated by : BYRON SRINIVASAN MD This examination was interpreted and the report reviewed and electronically signed by: BYRON SRINIVASAN MD on Feb 16 2025 9:34PM EST [id number] Normal [facility] CT CHEST W IVCONon 5 CT CHEST W IVCON * * *Final Report* * * DATE OF EXAM: Feb 16 2025 8:33PM [facility] 0539 - CT CHEST W IVCON [...] the gastroesophageal junction and should be advanced. Director Of Rehabilitation And Wellness: CECILIA Transcribe Date/Time: Feb 16 2025 9:56P Dictated by : ELLIOT ANGELA DO This examination was interpreted and the report reviewed and electronically signed by: ELLIOT ANGELA DO on Feb 16 2025 10:13PM EST [id number] N Normal [facility] CTA HEAD W IVCONon 5 CTA HEAD W IVCON * * *Final Report* * * DATE OF EXAM: Feb 16 2025 8:33PM [facility] 0022 - CTA HEAD W IVCON [...] involving the major extra or intracranial arteries. Director Of Rehabilitation And Wellness: PSCB Transcribe Date/Time: Feb 16 2025 9:23P Dictated by : BYRON SRINIVASAN MD This examination was interpreted and the report reviewed and electronically signed by: BYRON SRINIVASAN MD on Feb 16 2025 9:34PM EST [id number] N Normal [facility] CTA NECK W IVCONon 5 CTA NECK W IVCON * * *Final Report* * * DATE OF EXAM: Feb 16 2025 8:33PM [facility] 0024 - CTA NECK W IVCON [...] involving the major extra or intracranial arteries. Director Of Rehabilitation And Wellness: PSCB Transcribe Date/Time: Feb 16 2025 9:23P Dictated by : BYRON SRINIVASAN MD This examination was interpreted and the report reviewed and electronically signed by: BYRON SRINIVASAN MD on Feb 16 2025 9:34PM EST [id number] N Normal [facility] Comprehensive metabolic 2000 panelon 02-16-2025 Albumin [Mass/Vol] 2.3 g/dL Low 3.9-4.9 [facility] Comment on above: Order Comment: [facility] Type: BLOOD SPECIMENOrdering Facility: [facility] Address: [address] [place] [address] Performed By: #### 2 4323-8, ####[facility]ORATORYCLIA [id number] [address] STATES OF [facility] ALP [Catalytic activity/Vol] 286 U/L High 38-113 [facility] Comment on above: Order Comment: Speci [facility] Type: BLOOD SPECIMENOrdering Facility: [facility] Address: [address] [place] [address] Performed By: #### 2 4323-8, ####[facility]ORATORYCLIA [id number] [address] [place] ALT With P-5'-P [Catalytic activity/Vol] 17 U/L Normal 10-54 [facility] Comment on above: Order Comment: Speci men Type: BLOOD SPECIMENOrdering Facility: [facility] Address: [address] [facility] [place] [address] Performed By: #### 2 4323-8, ####[facility]ORATORYCLIA [id number] [place] [address] [place] Anion gap [Moles/Vol] 14 mmol/L Normal 8-15 [facility] Comment on above: Order Comment: Speci men Type: BLOOD SPECIMENOrdering Facility: [facility] Address: [address] [place] [address] Performed By: #### 2 4322-8, ####[facility]ORATORYCLIA [id number] [place] [address] [place] AST With P-5'-P [Catalytic activity/Vol] 31 U/L Normal 14-40 [facility] Comment on above: Order Comment: Speci men Type: BLOOD SPECIMENOrdering Facility: [facility] Address: [address] [place] [address] Performed By: #### 2 8, ####[facility]ATORYCLIA [id number] [place] [address] [place] Bilirubin [Mass/Vol] 0.9 mg/dL Normal 0.2-1.3 [facility] Comment on above: Order Comment: Speci men Type: BLOOD SPECIMENOrdering Facility: [facility] Address: [facility] [place] [address] Performed By: #### 2 4323-05, ####[facility]ORATORYCLIA [id number] [place] [address] [place] Calcium [Mass/Vol] 7.7 mg/dL Low 8.5-10.2 [facility] Comment on above: Order Comment: Speci men Type: BLOOD SPECIMENOrdering Facility: [facility] Address: [address] [place] [address] Performed By: #### 2 4323-8, ####[facility]ORATORYCLIA [id number] [place] [address] [place] Chloride [Moles/Vol] 105 mmol/L Normal 98-107 [facility] Comment on above: Order Comment: Speci men Type: BLOOD SPECIMENOrdering Facility: [facility] Address: [address] [place] [address] Performed By: #### 2 4323-8, ####[facility]ORATORYCLIA [id number] [place] [id number] [place] CO2 [Moles/Vol] 17 mmol/L Low 22-30 [facility] Comment on above: Order Comment: Speci men Type: BLOOD SPECIMENOrdering Facility: [facility] Address: [address] [place] [address] Performed By: #### 2 4323-8, ####[facility]ORATORYCLIA [id number] [address] [place] Creatinine [Mass/Vol] 2.35 mg/dL High 0.73-1.22 [facility] Comment on above: Order Comment: Speci men Type: BLOOD SPECIMENOrdering Facility: [facility] Address: [address] [place] [address] Performed By: #### 2 4323-8, ####[facility]ORATORYCLIA [id number] [address] Creatinine and Glomerular filtration rate.predicted panel (S/P/Bld) 30 mL/min/1.73m??? Low >=60 [facility] Comment on above: Order Comment: Speci men Type: BLOOD SPECIMENOrdering Facility: [facility] Address: [address] [place] [address] Result Comment: Leena mated Glomerular Filtration Rate [...] reflect actual GFR. Performed By: #### 2 432 ####[facility]ORATORYCLIA [id number] [place] [address] [place] Glucose [Mass/Vol] 131 mg/dL High 74-99 [facility] Comment on above: Order Comment: Speci men Type: BLOOD SPECIMENOrdering Facility: [facility] Address: [address] [place] [address] Result Comment: The [place] Diabetes Association (ADA) provides guidance for cutoff [...] Standards of Medical Care in Diabetes 2016, [place] Diabetes Association. Diabetes Care. 2016.39(Suppl 1). Performed By: #### 2 4323-05, ####[facility] [id number] [place] [address] [place] Potassium [Moles/Vol] 4.4 mmol/L Normal 3.7-5.1 [facility] Comment on above: Order Comment: Speci men Type: BLOOD SPECIMENOrdering Facility: [facility] Address: [address] [place] [address] Performed By: #### 2 4323-05, ####[facility]ATORYCLIA [id number] [place] [address] [place] Protein [Mass/Vol] 5.9 g/dL Low 6.3-8.0 [facility] Comment on above: Order Comment: [place] Type: BLOOD SPECIMENOrdering Facility: [facility] Address: [address] [place], [place] [address] Performed By: #### 2 43212-10, ####[facility]ORATORYCLIA [id number] [place] [address] [place] Sodium [Moles/Vol] 136 mmol/L Normal 136-144 [facility] Comment on above: Order Comment: Speci men Type: BLOOD SPECIMENOrdering Facility: [facility] Address: [address] [place] [address] Performed By: #### 2 4323-8, 70722-0 ####[facility]ATORYCLIA [id number] [place] [address] [place] Urea nitrogen [Mass/Vol] 33 mg/dL High 9-24 [facility] Comment on above: Order Comment: Speci men Type: BLOOD SPECIMENOrdering Facility: [facility] Address: [address] [place] [address] Performed By: #### 2 4323-8, 79145-8 ####[facility]ORATORYCLIA [id number] [place] [id number] [place] ECG COMPLETEon 02-16-2025 ECG COMPLETE Ventricular Rate : 120 BPM Atrial Rate : 120 BPM P-R Interval : 152 ms QRS Duration : 88 ms Q-T Interval : 306 ms QTC Calculation(Bazett) : 432 ms Calculated P Randolph : 35 degrees Calculated R Randolph : 6 degrees Calculated T Randolph : 45 degrees SINUS TACHYCARDIA POSSIBLE INFERIOR INFARCT , AGE UNDETERMINED CANNOT RULE OUT ANTERIOR INFARCT , AGE UNDETERMINED ABNORMAL ECG NO PREVIOUS ECGS AVAILABLE Confirmed by MAYKEL MANJARREZ MD ([id number]) on 02/20/2025 2:34:23 PM NAME : ANMOL REYNOLDS PID : [id number] : 1960 Gender : Male Race : ORD : [id number] Procedure Date : Feb 16 2025 19:16:55 Edit Date : Feb 20 2025 14:34:24 Diagnosis: SINUS TACHYCARDIA POSSIBLE INFERIOR INFARCT , AGE UNDETERMINED CANNOT RULE OUT ANTERIOR INFARCT , AGE UNDETERMINED ABNORMAL ECG NO PREVIOUS ECGS AVAILABLE Confirmed by MAYKEL MANJARREZ MD ([id number]) on 02/20/2025 2:34:23 PM Test Reason : Chest Pain Location : 4 : AKED EM Overread By : MAYKEL MANJARREZ MD Edited By : MAYKEL MANJARREZ MD Referred By : , Acquired by : RIDELLA,LELAND [facility] ED NOTEon 02-16-2025 ED NOTE HNO ID: [id number] Author: ROZ MIKE RN Service: ? Author Type: Registered Nurse Type: ED Notes Filed: 02/16/2025 23:23 Note Text: Icu resident at bedside talked with this RN about NG tube, this RN told to leave it in place for this time until further notice as it is not needed for anything significant at this time. [facility] ED NOTE HNO ID: [id number] Author: ROZ MIKE RN Service: ? Author Type: Registered Nurse Type: ED Notes Filed: 02/16/2025 21:56 Note Text: NG in right nare advanced as much as possible, per KUB, the NG is still not in stomach. MICU resident to assess when at bedside. [facility] ED NOTE HNO ID: [id number] Author: ROZ MIKE RN Service: ? Author Type: Registered Nurse Type: ED Notes Filed: 02/16/2025 22:06 Note Text: Mepilex applied to coccyx to prevent further skin berakdown. [facility] ED NOTE HNO ID: [id number] Author: ROZ MIKE RN Service: ? Author Type: Registered Nurse Type: ED Notes Filed: 02/16/2025 19:46 Note Text: Xray called at this time to confirm placement. [facility] ED NOTE HNO ID: [id number] Author: ROZ MIKE RN Service: ? Author Type: Registered Nurse Type: ED Notes Filed: 02/16/2025 19:44 Note Text: 100 mcg of fentanyl being administered at this time by LIBRADO Escamilla [facility] ED NOTE HNO ID: [id number] Author: ROZ MIKE RN Service: ? Author Type: Registered Nurse Type: ED Notes Filed: 02/16/2025 19:44 Note Text: Oxygen improved to 97%. [facility] ED NOTE HNO ID: [id number] Author: ROZ MIKE RN Service: ? Author Type: Registered Nurse Type: ED Notes Filed: 02/16/2025 19:44 Note Text: 7.5 tube placed at this time, bilateral breath sounds auscultated, ETCO2 31. 24 at the teeth. Pt oxygen 71% and HR 132. [facility] ED NOTE HNO ID: [id number] Author: ROZ MIKE RN Service: ? Author Type: Registered Nurse Type: ED Notes Filed: 02/16/2025 19:40 Note Text: 100 of rocuronium given at this time. [facility] ED NOTE HNO ID: [id number] Author: ROZ MIKE RN Service: ? Author Type: Registered Nurse Type: ED Notes Filed: 02/16/2025 19:39 Note Text: 30 of etomidate given at this time. [facility] ED NOTE HNO ID: [id number] Author: ROZ MIKE RN Service: ? Author Type: Registered Nurse Type: ED Notes Filed: 02/16/2025 19:38 Note Text: Levo tubing was clamped, levo decreased to 7 again at this time. [facility] ED NOTE HNO ID: [id number] Author: ROZ MIKE RN Service: ? Author Type: Registered Nurse Type: ED Notes Filed: 02/16/2025 19:36 Note Text: Preparing to intubate patient, using 30 of etomidate for intubation. [facility] ED NOTE HNO ID: [id number] Author: ROZ MIKE RN Service: ? Author Type: Registered Nurse Type: ED Notes Filed: 02/16/2025 19:36 Note Text: Levo increased to 10 at this time [facility] ED NOTE HNO ID: [id number] Author: ROZ MIKE RN Service: ? Author Type: Registered Nurse Type: ED Notes Filed: 02/16/2025 19:32 Note Text: Levophed started at 7 at this time. [facility] ED NOTE HNO ID: [id number] Author: ROZ MIKE RN Service: ? Author Type: Registered Nurse Type: ED Notes Filed: 02/16/2025 19:32 Note Text: Patient opening eyes at this time, but not following commands at this time. [facility] ED NOTE HNO ID: [id number] Author: ROZ MIKE RN Service: ? Author Type: Registered Nurse Type: ED Notes Filed: 02/16/2025 19:22 Note Text: Line placed in RAC was placed in artery, line removed. Pressure applied, no medications were administered through this access point. Normal [facility] ED NOTE HNO ID: [id number] Author: ROZ MIKE RN Service: ? Author Type: Registered Nurse Type: ED Notes Filed: 02/16/2025 19:16 Note Text: Patient BECKIE from the [facility] [place] in [place] unresponsive. NO responsive to verbal stimuli, only to painful. Pt LKW was 1700, found unresponsive. [facility] ED NOTE HNO ID: [id number] Author: ROZ MIKE RN Service: ? Author Type: Registered Nurse Type: ED Notes Filed: 02/16/2025 19:15 Note Text: Normal [facility] ED NOTE HNO ID: [id number] Author: ROZ MIKE RN Service: ? Author Type: Registered Nurse Type: ED Notes Filed: 02/16/2025 19:25 Note Text: 2L up at this time. 1 L LR and 1L NS. [facility] ED NOTE HNO ID: [id number] Author: ROZ MIKE RN Service: ? Author Type: Registered Nurse Type: ED Notes Filed: 02/16/2025 19:36 Note Text: Patient placed on zoll pads at this time [facility] ED PROV NOTEon 02-16-2025 ED PROV NOTE HNO ID: [id number] Author: KATHRIN MEHTA MD Service: Emergency Medicine [...] 16, 20251952 Patient here via EMS from longterm for evaluation of hypotension and altered mental [...] Richardson DO Clinical Impressions as of 02/17/25 002 Septic shock (HCC) Urinary tract infection associated [...] History Patient presents with: Unresponsive: Pt from [facility] for being found unresponsive. Pt normally AANDOx4, but had a spinal cord injury resulting in need for nursing facility. Pt LKW was 1700 today. Arrives only arousable to pain, unable to follow commands. Arrives pale, on NRB, hypotensive, and tachycardic. Patient is a 64-year-old male who presents from [facility] [place] for being unresponsive. Patient is a history [...] Center HISTORY PHYSICALon HISTORY PHYSICAL HNO ID: [id number] Author: HOWARD GAMA MD Service: Critical Care Author Type: Physician Type: H&P Filed: 02/17/2025 02:44 Note Text: [facility] STAFF PHYSICIAN NOTE OF PERSONAL [...] [facility] DATE of SERVICE: 02/16/2025 [facility] HISTORY PHYSICAL HNO ID: [id number] Author: HOWARD GAMA MD Service: Critical Care [...] intubation. The patient initially presented to the [facility] ED on February 16, 2025 after being found unresponsive at his assisted facility, last known well 1700 today. ED [...] Lactate (POCT) 2.4 ! UA: 02/16/[address] [facility] ! Clarity Dense Turbid ! Glucose, Urine Negative Bilirubin, Urine Negative Ketones, Urine Negative Specific [place], Ur 1.037 (H) Hemoglobin/Blood,Ur 3+ ! pH, [...] 1L LR @ 1914 Norepinephrine gtt @ 193 2 g Ceftriaxone @ 1955 Escalated to [...] [Mass/Vol] 1.6 mg/dL Low 1.7-2.3 [facility] Comment on above: Order Comment: Jg valdez Type: BLOOD SPECIMENOrdering Facility: [facility] Address: [address] [place] [address] Performed By: #### 2 4323-8, 31770-5 ####[facility] LABORATORYCLIA [id number] [place] [id number] [place] Urinalysis complete panel (U )on 02-16-2025 Bacteria LM.HPF (Urine sed) [#/Area] Many Abnormal None Seen [facility] Comment on above: Order Comment: Jg valdez Type: URINE SPECIMENOrdering Facility: [facility] Address: [address] [place] [address] Performed By: #### 2 4356-8, 630-4 ####[facility]ORATORYCLIA [id number] [place], [place] [address] [place] [address] [place] Bilirubin Ql (U) Negative Normal Negative [facility] Comment on above: Order Comment: Speci men Type: URINE SPECIMENOrdering Facility: [facility] Address: [address] [place] [address] Performed By: #### 2 4356-8, 630-4 ####[facility]ORATORYCLIA [id number] [address] Clarity (Unsp spec) Dense Turbid Abnormal Clear [facility] Comment on above: Order Comment: Speci men Type: URINE SPECIMENOrdering Facility: [facility] Address: [address] [place] [address] Performed By: #### 2 4356-8, 630-4 ####[facility]ORATORYCLIA [id number] [address] Color (U) [facility] Abnormal yellow [facility] Comment on above: Order Comment: Speci men Type: URINE SPECIMENOrdering Facility: [facility] Address: [address] [place] [address] Performed By: #### 2 4356-8, 630-4 ####[facility]ORATORYCLIA [id number] [address] Epithelial cells LM.HPF (Urine sed) [#/Area] Moderate Abnormal None Seen [facility] Comment on above: Order Comment: Speci men Type: URINE SPECIMENOrdering Facility: [facility] Address: [address] [place] [address] Performed By: #### 2 4356-8, 630-4 ####[facility]ORATORYCLIA [id number] [address] [place] Glucose Test strip (U) [Mass/Vol] Negative Normal Trace, Negative [facility] Comment on above: Order Comment: Speci men Type: URINE SPECIMENOrdering Facility: [facility] Address: [address] [place] [address] Performed By: #### 2 4356-8, 630-4 ####[facility]ORATORYCLIA [id number] [place], [place] [address] [place] [address] [place] Hemoglobin Ql (U) 3+ Abnormal Negative, Trace [facility] Comment on above: Order Comment: Speci men Type: URINE SPECIMENOrdering Facility: [facility] Address: [address] [place] [address] Performed By: #### 2 4356-8, 630-4 ####[facility]ORATORYCLIA [id number] [address] [place] Ketones Ql (U) Negative Normal Negative, Trace [facility] Comment on above: Order Comment: Speci men Type: URINE SPECIMENOrdering Facility: [facility] Address: [address] [place] [address] Performed By: #### 2 4356-8, 096-4 ####[facility]ORATORYCLIA [id number] [address] [place] Leukocyte esterase Test strip Ql (U) 500 Da/uL Abnormal Negative, 25 Da/uL [facility] Comment on above: Order Comment: Speci men Type: URINE SPECIMENOrdering Facility: [facility] Address: [address] [place] [address] Performed By: #### 2 4356-8, 373-4 ####[facility] LABORATORYCLIA [id number] [address] [place] Nitrite Ql (U) Negative Normal Negative [facility] Comment on above: Order Comment: Speci men Type: URINE SPECIMENOrdering Facility: [facility] Address: [address] [place] [address] Performed By: #### 2 4356-8, 700-4 ####[facility]ORATORYCLIA [id number] [place] [address] [place] pH (U) 6.5 [pH] Normal 5.0-8.0 [facility] Comment on above: Order Comment: Speci men Type: URINE SPECIMENOrdering Facility: [facility] Address: [address] [place] [address] Performed By: #### 2 4356-8, -4 ####[facility] LABORATORYCLIA [id number] [address] [facility] Protein (U) [Mass/Vol] 2+ Abnormal Trace , Negative [facility] Comment on above: Order Comment: Speci men Type: URINE SPECIMENOrdering Facility: [facility] Address: [address] [place] [address] Performed By: #### 2 4356-8, 4 ####[facility] LABORATORYCLIA [id number] [address] [place] RBC LM.HPF (Urine sed) [#/Area] /[HPF] Abnormal 0-3 /HPF [facility] Comment on above: Order Comment: Speci men Type: URINE SPECIMENOrdering Facility: [facility] Address: [address] [place] [address] Performed By: #### 2 43568, ####[facility] [id number] [address] STATES OF [facility] Specific gravity (U) [Rel density] 1.037 High 1.005-1.030 [facility] Comment on above: Order Comment: Speci men Type: URINE SPECIMENOrdering Facility: [facility] Address: [address] [place] [address] Performed By: #### 2 4356-8, ####[facility]ORATORYCLIA [id number] [address] Urobilinogen Ql (U) Normal Normal Normal [facility] Comment on above: Order Comment: Speci men Type: URINE SPECIMENOrdering Facility: [facility] Address: [address] [place] [address] Performed By: #### 2 4356-8, -4 ####[facility] LABORATORYCLIA [id number] [place] [address] [facility] [place] WBC LM.HPF (Urine sed) [#/Area] /[HPF] Abnormal 0-5 /HPF [facility] Comment on above: Order Comment: Speci men Type: URINE SPECIMENOrdering Facility: [facility] Address: [address] [place] [id number] Performed By: #### 2 4356-8, 630-4 ####[facility]ORATORYCLIA [id number] [place] [address] [facility] XR ABDOMEN 1V SUPINEon 02-16 XR [...] EKG leads. No dilated gas-filled bowel loops. Director Of Rehabilitation [facility] Well[facility] Transcribe Date/Time: Feb 16 2025 10:58P [...] abundance of colonic stool. Other details above. Director Of Rehabilitation And Wellness: CECILIA Transcribe Date/Time: Feb 16 2025 9:11P [...] in the distal esophagus, suggest further advancement. Director Of Rehabilitation And Wellness: C[facility]ILIA Transcribe Date/Time: Feb 16 2025 8:45P Dictated by : PATY US MD This examination was interpreted and the report reviewed and electronically signed by: PATY US MD on Feb 16 2025 8:47PM EST [id number] Normal [facility] Bilirubin Test strip Ql (U)O rdered By: Tab Dupont on 02-15-2025 Bilirubin Ql (U) Negative Negative [facility] Ketones Test strip Ql (U)Ord ered By: Tab Dupont on 02-15-2025 Ketones Ql (U) Negative Negative [facility] Microscopic analysis of urin e for red blood cells (RBC)Ordered By: Tab Dupont on 02-15-2025 Microscopic analysis of urine for red blood cells (RBC) 10-25 SEEN /hpf 0-5 [facility] Mucus LM Ql (Urine sed)Order ed By: Tab Dupont on 02-15-2025 Mucus Ql (Urine sed) 0 SEEN /hpf [facility] Nitrite Test strip Ql (U)Ord ered By: Tab Dupont on 02-15-2025 Nitrite Ql (U) Positive High Negative [facility] Protein Test strip Ql (U)Ord ered By: Tab Dupont on 02-15-2025 Protein Ql (U) 100 mg/dl High Negative [facility] Squamous epithelial cells de tection in urine sediment by light microscopyOrdered By: Tab Dupont on 02-15-2025 Epithelial cells.squamous LM Ql (Urine sed) 0 SEEN /hpf 0- [facility] Urinalysis, Completeon 02-15 RBC 10-25 SEEN Normal 0-5 [facility] Comment on above: Order Comment: 301.2 Performed By: #### L 501.6710, L101.9900, L501.8820 #### [facility] [address] [place], [address] BACTERIA 2+ /hpf Normal None Seen [facility] Comment on above: Order Comment: 301.2 Performed By: #### L 501.6710, L101.9900, L501.8820 #### [facility] [address] [place], [address] WBC 25-50 SEEN Normal 0-5 [facility] Comment on above: Order Comment: 301.2 Performed By: #### L 501.6710, L101.9900, L501.8820 #### [facility] [address] [place], [address] EPI,SQUAMOUS 0 SEEN Normal 0-5 [facility] Comment on above: Order Comment: 301.2 Performed By: #### L 501.6710, L101.9900, L501.8820 #### [facility] [address] [place], [address] Mucus Ql (Urine sed) 0 SEEN Normal [facility] Comment on above: Order Comment: 301.2 Performed By: #### L 501.6710, L101.9900, L501.8820 #### [facility] [address] [place], [address] Urine clarityOrdered By: Regino Dupont on 02-15-2025 Clarity (U) Sl. Cloudy Clear [facility] Urine color determinationOrd ered By: Tab Dupont on 02-15-2025 Color (U) Yellow Yellow [facility] Urine cultureOrdered By: Regino Dupont on 02-15-2025 Bacteria identified Cx Nom (U) Citrobacter freundii Abnormal [facility] Bacteria identified Cx Nom (U) Providencia stuartii Abnormal [facility] Bacteria identified Cx Nom (U) Proteus mirabilis Abnormal [facility] Bacteria identified Cx Nom (U) Enterococcus faecalis Abnormal [facility] Urine glucose detectionOrder ed By: Tab Dupont on 02-15-2025 Glucose Ql (U) Normal mg/dl Normal [facility] Urine leukocyte esterase det ection by dipstickOrdered By: Tab Dupont on 02-15-2025 Leukocyte esterase Test strip Ql (U) 500 /ul High Negative [facility] Urine pHOrdered By: Tab cordova on 02-15-2025 pH (U) 6.5 [pH] 5.0 - 8.0 [facility] Urine sediment bacteria coun t by microscopy (number/high power field)Ordered By: Tab Dupont on 02-15-2025 Bacteria LM.HPF (Urine sed) [#/Area] 2 /[HPF] None Seen [facility] Urine specific gravity measu rementOrdered By: Tab Dupont on 02-15-2025 Specific gravity (U) [Rel density] 1.010 1.002-1.030 [facility] Urine urobilinogen measureme ntOrdered By: Tab Dupont on 02-15-2025 Urobilinogen Ql (U) Normal mg/dl Normal [facility] White blood cell countOrdere d By: Tab Dupont on 02-15-2025 White blood cell count 25-50 SEEN /hpf 0-5 [facility] CNOVon 01-31-2025 CNOV Office Visit (PLWDMR ) ANMOL REYNOLDS ([id number]) 1960 M Date Time Provider Department 01/31/25 [...] in motorized wheelchair Home Care Company/Nursing Facility: [facility] Consent captured for debridement per (Provider) and good until Special Instructions (for example, patient stands at the bedside for exam/dressing): bed Anticoagulant Therapy: aspirin Living Situation (ie... Apartment, house, [facility] Who [facility]: facility Who [...] BY PROVIDER: Anesthetic Used: N/A applied per barge captain # 1 AND 2 Other procedure: Specimen [...] alginate AG Covered and secured with: [employer] [place] [employer] Other: COMPRESSION: N/A DME: [employer] order date __ DME: [employer] , PH: [phone] SPECIAL NEEDS: Coordination of care N/A Emotional support N/A OR set-up N/A Inventory Administrator N/A Incontinence needs N/A DISCHARGED in stable condition to: facility in motorized wheelchair PLAN/ORDERS: - [facility] to see Milad Goodson MD in 6 weeks. - Blood work ordered please go to any [facility]. - Please send patient with medication list at next appointment. - Continue aggressive nutritional support to assist wound healing - CAT Scans AND MRI need to be scheduled through [facility]. Call [phone].(If applicable) EDUCATION: The patient/family was instructed how [...] the p (more content not included)... Normal [facility] Anion gap in Serum or Plasma Ordered By: Tab Dupont on 01-09-2025 Anion gap [Moles/Vol] 12 mmol/L - [facility] BUN/creatinine ratioOrdered By: Tab Dupont on 01-09-2025 Urea nitrogen/Creatinine [Mass ratio] 17.9 mg/mg - [facility] Basic Metabolic Profile (BMP )on 01-09-2025 BUN/CRE 17.9 RATIO Normal - [facility] Comment on above: Order Comment: 301.2 Performed By: #### L 101.9900, L100.0500, L500.4050, L501.6710 #### [facility] [address] [place], [address] Calcium [Mass/Vol] 8.7 mg/dL Normal 7.6-11.0 [facility] Comment on above: Order Comment: 301.2 Performed By: #### L 101.9900, L100.0500, L500.4050, L501.6710 #### [facility] [address] [place], [address] Chloride [Moles/Vol] 110 mmol/L High 98-108 [facility] Comment on above: Order Comment: 301.2 Performed By: #### L 101.9900, L100.0500, L500.4050, L501.6710 #### [facility] [address] [place], [address] CO2 [Moles/Vol] 19.2 mmol/L Low 21.0-32.0 [facility] Comment on above: Order Comment: 301.2 Performed By: #### L 101.9900, L100.0500, L500.4050, L501.6710 #### [facility] [address] [place], [address] Creatinine [Mass/Vol] 0.42 mg/dL Low 0.70-1.20 [facility] Comment on above: Order Comment: 301.2 Performed By: #### L 101.9900, L100.0500, L500.4050, L501.6710 #### [facility] [address] [place], [address] GAP 12 Normal 5-15 [facility] Comment on above: Order Comment: 301.2 Performed By: #### L 101.9900, L100.0500, L500.4050, L501.6710 #### [facility] [address] [place], [address] GFR/1.73 sq M.predicted among non-blacks MDRD (S/P/Bld) [Vol rate/Area] 121 mL/min/{1.73_m2} Normal >60 [facility] Comment on above: Order Comment: 301.2 Result Comment: mL/m in/1.73m2 CKD-EPI Creatinine Equation (2020) Performed By: #### L 101.9900, L100.0500, L500.4050, L501.6710 #### [facility] [address] [place], [address] Glucose [Mass/Vol] 120 mg/dL High 70-99 [facility] Comment on above: Order Comment: 301.2 Performed By: #### L 101.9900, L100.0500, L500.4050, L501.6710 #### [facility] [address] [place], [address] Potassium [Moles/Vol] 4.0 mmol/L Normal 3.3-5.1 [facility] Comment on above: Order Comment: 301.2 Result Comment: Hemo lysis present, Results??could be affected. ?? Performed By: #### L 101.9900, L100.0500, L500.4050, L501.6710 #### [facility] [address] [place], [address] Sodium [Moles/Vol] 141 mmol/L Normal 133-145 [facility] Comment on above: Order Comment: 301.2 Performed By: #### L 101.9900, L100.0500, L500.4050, L501.6710 #### [facility] [address] [place], [address] Urea nitrogen [Mass/Vol] 8 mg/dL Normal 4-19 [facility] Comment on above: Order Comment: 301.2 Performed By: #### L 101.9900, L100.0500, L500.4050, L501.6710 #### [facility] [address] [place], [address] CBC-Complete Blood Cnt No Di ffon 01-09-2025 Erythrocyte distribution width (RBC) [Ratio] 13.9 % Normal 11.6-14.6 [facility] Comment on above: Order Comment: 301.2 Performed By: #### L 101.9900, L100.0500, L500.4050, L501.6710 #### [facility] [address] [place], [address] Hematocrit (Bld) [Volume fraction] 39.3 % Low 40-54 [facility] Comment on above: Order Comment: 301.2 Performed By: #### L 101.9900, L100.0500, L500.4050, L501.6710 #### [facility] [address] [place], [address] Hemoglobin (Bld) [Mass/Vol] 13.1 g/dL Normal 13.0-16.5 [facility] Comment on above: Order Comment: 301.2 Performed By: #### L 101.9900, L100.0500, L500.4050, L501.6710 #### [facility] [address] [place], [address] MCH (RBC) [Entitic mass] 30.9 pg Normal 27.0-32.0 [facility] Comment on above: Order Comment: 301.2 Performed By: #### L 101.9900, L100.0500, L500.4050, L501.6710 #### [facility] [address] [place], [address] MCHC (RBC) [Mass/Vol] 33.3 g/dL Normal 32-36 [facility] Comment on above: Order Comment: 301.2 Performed By: #### L 101.9900, L100.0500, L500.4050, L501.6710 #### [facility] [address] [place], [address] MCV (RBC) [Entitic vol] 92.7 fL Normal 80-94 [facility] Comment on above: Order Comment: 301.2 Performed By: #### L 101.9900, L100.0500, L500.4050, L501.6710 #### [facility] [address] [place], [address] Platelet mean volume (Bld) [Entitic vol] 11.1 fL Normal 6.2-12.0 [facility] Comment on above: Order Comment: 301.2 Performed By: #### L 101.9900, L100.0500, L500.4050, L501.6710 #### [facility] [address] [place], [address] Platelets (Bld) [#/Vol] 255 10*3/uL Normal 150-450 [facility] Comment on above: Order Comment: 301.2 Performed By: #### L 101.9900, L100.0500, L500.4050, L501.6710 #### [facility] [address] [place], [address] RBC (Bld) [#/Vol] 4.24 10*6/uL Low 4.6-6.2 [facility] Comment on above: Order Comment: 301.2 Performed By: #### L 101.9900, L100.0500, L500.4050, L501.6710 #### [facility] [address] [place], [address] RDW SD 47.3 fl High 35.1-43.9 [facility] Comment on above: Order Comment: 301.2 Performed By: #### L 101.9900, L100.0500, L500.4050, L501.6710 #### [facility] [address] [place], [address] WBC (Bld) [#/Vol] 7.1 10*3/uL Normal 4.4-11.0 [facility] Comment on above: Order Comment: 301.2 Performed By: #### L 101.9900, L100.0500, L500.4050, L501.6710 #### [facility] [address] [place], [address] Carbon dioxide, total [Moles /volume] in Central venous bloodOrdered By: Tab Dupont on 01-09-2025 CO2 [Moles/Vol] 19.2 mmol/L Low 21.0-32.0 [facility] Chloride assayOrdered By: Vinh Lehman on 01-09-2025 Chloride [Moles/Vol] 110 mmol/L High 98-108 [facility] Erythrocyte distribution wid th ratioOrdered By: Tab Dupont on 01-09-2025 Erythrocyte distribution width (RBC) [Ratio] 13.9 % 11.6-14.6 [facility] Erythrocyte distribution wid th standard deviationOrdered By: Tab Dupont on 01-09-2025 Erythrocyte distribution width (RBC) [Ratio] 47.3 fl High 35.1-43.9 [facility] Glomerular filtration rate ( GFR) estimation/1.73 sq m using serum, plasma, or whole bOrdered By: Tab Dupont on 01-09-2025 GFR/1.73 sq M.predicted among non-blacks MDRD (S/P/Bld) [Vol rate/Area] 121 mL/min/{1.73_m2} >60 [facility] Comment on above: mL/min/1.73m2 CKD-EP I Creatinine Equation (2020) Hematocrit Auto (Bld) [Volum e fraction]Ordered By: Tab Dupont on 01-09-2025 Hematocrit (Bld) [Volume fraction] 39.3 % Low 40-54 [facility] Hemoglobin measurementOrdere d By: Tab Dupont on 01-09-2025 Hemoglobin (Bld) [Mass/Vol] 13.1 g/dL 13.0-16.5 [facility] MCV (mean corpuscular volume ) determinationOrdered By: Tab Dupont on 01-09-2025 MCV (RBC) [Entitic vol] 92.7 fL 80-94 [facility] Mean corpuscular hemoglobin (MCH) determinationOrdered By: Tab Dupont on 01-09-2025 MCH (RBC) [Entitic mass] 30.9 pg 27.0-32.0 [facility] Mean corpuscular hemoglobin concentration (MCHC) determinationOrdered By: Tab Dupont on 01-09-2025 MCHC (RBC) [Mass/Vol] 33.3 g/dL 32-36 [facility] Mean platelet volume determi nationOrdered By: Tab Dupont on 01-09-2025 Platelet mean volume (Bld) [Entitic vol] 11.1 fL 6.2-12.0 [facility] Platelet countOrdered By: Vinh Lehman on 01-09-2025 Platelets (Bld) [#/Vol] 255 10*3/uL 150-450 [facility] Potassium measurement (mass/ volume)Ordered By: Tab Dupont on 01-09-2025 Potassium (Unsp spec) [Mass/Vol] 4.0 mmol/L 3.3-5.1 [facility] Comment on above: Hemolysis present, R esults could be affected. RBC Auto (Bld) [#/Vol]Ordere d By: Tab Dupont on 01-09-2025 RBC (Bld) [#/Vol] 4.24 10*6/uL Low 4.6-6.2 [facility] Serum creatinine measurement (mass/volume)Ordered By: Tab Dupont on 01-09-2025 Creatinine [Mass/Vol] 0.42 mg/dL Low 0.70-1.20 [facility] Serum glucose measurement (m ass/volume)Ordered By: Tab Dupont on 01-09-2025 Glucose [Mass/Vol] 120 mg/dL High 70-99 [facility] Serum or plasma calcium randall urement (mass/volume)Ordered By: Tab Dupont on 01-09-2025 Calcium [Mass/Vol] 8.7 mg/dL 7.6-11.0 [facility] Serum or plasma urea nitroge n measurement (mass/volume)Ordered By: Tab Dupont on 01-09-2025 Urea nitrogen [Mass/Vol] 8 mg/dL 4-19 [facility] Sodium levelOrdered By: Omar Dupont on 01-09-2025 Sodium [Moles/Vol] 141 mmol/L 133-145 [facility] White blood cell (WBC) count Ordered By: Tab Dupont on 01-09-2025 WBC (Bld) [#/Vol] 7.1 10*3/uL 4.4-11.0 [facility] MRI SACRUM/COCCYX WO/W IVCON on 01-04-2025 MRI SACRUM/COCCYX WO/W IVCON * * *Final Report* * * DATE OF EXAM: Jan 04 2025 9:45AM [facility] 0236 - MRI SACRUM/COCCYX WO/W IVCON / [...] the adjacent S5 segment of the sacrum. Director Of Rehabilitation And Wellness[facility] Transcribe Date/Time: Jan 06 2025 1:16P Dictated by : COLE SHIPMAN DO This examination was interpreted and the report reviewed and electronically signed by: COLE SHIPMAN DO on Jan 06 2025 1:36PM EST [id number] Normal [facility] Anion gap in Serum or Plasma Ordered By: Tab Dupont on 12-07-2024 Anion gap [Moles/Vol] 10 mmol/L - [facility] BUN/creatinine ratioOrdered By: Tab Dupont on 12-07-2024 Urea nitrogen/Creatinine [Mass ratio] 20.1 mg/mg High 07-24 [facility] Basic Metabolic Profile (BMP )on 12-07-2024 BUN/CRE 20.1 RATIO High 07-24 [facility] Comment on above: Order Comment: 301.2 Performed By: #### L 501.6710, L101.9900, L501.8820 #### [facility] [place], [address] Calcium [Mass/Vol] 8.6 mg/dL Normal 7.6-11.0 [facility] Comment on above: Order Comment: 301.2 Performed By: #### L 501.6710, L101.9900, L501.8820 #### [facility] [address] [place], [address] Chloride [Moles/Vol] 104 mmol/L Normal 98-108 [facility] Comment on above: Order Comment: 301.2 Performed By: #### L 501.6710, L101.9900, L501.8820 #### [facility] [address] [place], [address] CO2 [Moles/Vol] 21.3 mmol/L Normal 21.0-32.0 [facility] Comment on above: Order Comment: 301.2 Performed By: #### L 501.6710, L101.9900, L501.8820 #### [facility] [address] [place], [address] Creatinine [Mass/Vol] 0.47 mg/dL Low 0.70-1.20 [facility] Comment on above: Order Comment: 301.2 Performed By: #### L 501.6710, L101.9900, L501.8820 #### [facility] [address] [place], [address] GAP 10 Normal 5-15 [facility] Comment on above: Order Comment: 301.2 Performed By: #### L 501.6710, L101.9900, L501.8820 #### [facility] [address] [place], [address] GFR/1.73 sq M.predicted among non-blacks MDRD (S/P/Bld) [Vol rate/Area] 117 mL/min/{1.73_m2} Normal >60 [facility] Comment on above: Order Comment: 301.2 Result Comment: mL/m in/1.73m2 CKD-EPI Creatinine Equation (2020) Performed By: #### L 501.6710, L101.9900, L501.8820 #### [facility] [address] [place], [address] Glucose [Mass/Vol] 194 mg/dL High 70-99 [facility] Comment on above: Order Comment: 301.2 Performed By: #### L 501.6710, L101.9900, L501.8820 #### [facility] [address] [place], [address] Potassium [Moles/Vol] 4.3 mmol/L Normal 3.3-5.1 [facility] Comment on above: Order Comment: 301.2 Performed By: #### L 501.6710, L101.9900, L501.8820 #### [facility] [address] [place], [address] Sodium [Moles/Vol] 136 mmol/L Normal 133-145 [facility] Comment on above: Order Comment: 301.2 Performed By: #### L 501.6710, L101.9900, L501.8820 #### [facility] [address] [place], [address] Urea nitrogen [Mass/Vol] 9 mg/dL Normal 4-19 [facility] Comment on above: Order Comment: 301.2 Performed By: #### L 501.6710, L101.9900, L501.8820 #### [facility] [address] [place], [address] CBC-Complete Blood Cnt No Di ffon 12-07-2024 Erythrocyte distribution width (RBC) [Ratio] 14.0 % Normal 11.6-14.6 [facility] Comment on above: Order Comment: 301.2 Performed By: #### L 501.6710, L101.9900, L501.8820 #### [facility] [address] [place], [address] Hematocrit (Bld) [Volume fraction] 38.2 % Low 40-54 [facility] Comment on above: Order Comment: 301.2 Performed By: #### L 501.6710, L101.9900, L501.8820 #### [facility] [address] [place], [address] Hemoglobin (Bld) [Mass/Vol] 12.8 g/dL Low 13.0-16.5 [facility] Comment on above: Order Comment: 301.2 Performed By: #### L 501.6710, L101.9900, L501.8820 #### [facility] [address] [place], [address] MCH (RBC) [Entitic mass] 30.9 pg Normal 27.0-32.0 [facility] Comment on above: Order Comment: 301.2 Performed By: #### L 501.6710, L101.9900, L501.8820 #### [facility] [address] [place], [address] MCHC (RBC) [Mass/Vol] 33.5 g/dL Normal 32-36 [facility] Comment on above: Order Comment: 301.2 Performed By: #### L 501.6710, L101.9900, L501.8820 #### [facility] [address] [place], [address] MCV (RBC) [Entitic vol] 92.3 fL Normal 80-94 [facility] Comment on above: Order Comment: 301.2 Performed By: #### L 501.6710, L101.9900, L501.8820 #### [facility] [address] [place], [address] Platelet mean volume (Bld) [Entitic vol] 10.5 fL Normal 6.2-12.0 [facility] Comment on above: Order Comment: 301.2 Performed By: #### L 501.6710, L101.9900, L501.8820 #### [facility] [address] [place], [address] Platelets (Bld) [#/Vol] 241 10*3/uL Normal 150-450 [facility] Comment on above: Order Comment: 301.2 Performed By: #### L 501.6710, L101.9900, L501.8820 #### [facility] [address] [place], [address] RBC (Bld) [#/Vol] 4.14 10*6/uL Low 4.6-6.2 [facility] Comment on above: Order Comment: 301.2 Performed By: #### L 501.6710, L101.9900, L501.8820 #### [facility] [address] [place], [address] RDW SD 47.9 fl High 35.1-43.9 [facility] Comment on above: Order Comment: 301.2 Performed By: #### L 501.6710, L101.9900, L501.8820 #### [facility] [address] [place], [address] WBC (Bld) [#/Vol] 6.6 10*3/uL Normal 4.4-11.0 [facility] Comment on above: Order Comment: 301.2 Performed By: #### L 501.6710, L101.9900, L501.8820 #### [facility] [address] [place], [address] Carbon dioxide, total [Moles /volume] in Central venous bloodOrdered By: Tab Dupont on 12-07-2024 CO2 [Moles/Vol] 21.3 mmol/L 21.0-32.0 [facility] Chloride assayOrdered By: Vinh Lehman on 12-07-2024 Chloride [Moles/Vol] 104 mmol/L 98-108 [facility] Erythrocyte distribution wid th ratioOrdered By: Tab Dupont on 12-07-2024 Erythrocyte distribution width (RBC) [Ratio] 14.0 % 11.6-14.6 [facility] Erythrocyte distribution wid th standard deviationOrdered By: Tab Dupnot on 12-07-2024 Erythrocyte distribution width (RBC) [Entitic vol] 47.9 fL High 35.1-43.9 [facility] Erythrocyte distribution width (RBC) [Ratio] 47.9 fl High 35.1-43.9 [facility] GFR/1.73 sq M.predicted trish g non-blacks MDRD (S/P/Bld) [Vol rate/Area]Ordered By: Tab Dupont on 12-07-2024 Estimated GFR (MDRD) Non-Af Amer 117 >60 [facility] Comment on above: mL/min/1.73m2 CKD-EP I Creatinine Equation (2020) Glomerular filtration rate ( GFR) estimation/1.73 sq m using serum, plasma, or whole bOrdered By: Tab Dupont on 12-07-2024 GFR/1.73 sq M.predicted among non-blacks MDRD (S/P/Bld) [Vol rate/Area] 117 mL/min/{1.73_m2} >60 [facility] Comment on above: mL/min/1.73m2 CKD-EP I Creatinine Equation (2020) Hematocrit Auto (Bld) [Volum e fraction]Ordered By: Tab Dupont on 12-07-2024 Hematocrit (Bld) [Volume fraction] 38.2 % Low 40-54 [facility] Hemoglobin measurementOrdere d By: Tab Dupont on 12-07-2024 Hemoglobin (Bld) [Mass/Vol] 12.8 g/dL Low 13.0-16.5 [facility] MCV (mean corpuscular volume ) determinationOrdered By: Tab Dupont on 12-07-2024 MCV (RBC) [Entitic vol] 92.3 fL 80-94 [facility] Mean corpuscular hemoglobin (MCH) determinationOrdered By: Tab Dupont on 12-07-2024 MCH (RBC) [Entitic mass] 30.9 pg 27.0-32.0 [facility] Mean corpuscular hemoglobin concentration (MCHC) determinationOrdered By: Tab Dupont on 12-07-2024 MCHC (RBC) [Mass/Vol] 33.5 g/dL 32-36 [facility] Mean platelet volume determi nationOrdered By: Tab Dupont on 12-07-2024 Platelet mean volume (Bld) [Entitic vol] 10.5 fL 6.2-12.0 [facility] Platelet countOrdered By: Vinh Lehman on 12-07-2024 Platelets (Bld) [#/Vol] 241 10*3/uL 150-450 [facility] Potassium (Unsp spec) [Mass/ Vol]Ordered By: Tab Dupont on 12-07-2024 Potassium [Moles/Vol] 4.3 mmol/L 3.3-5.1 [facility] Potassium measurement (mass/ volume)Ordered By: Tab Dupont on 12-07-2024 Potassium (Unsp spec) [Mass/Vol] 4.3 mmol/L 3.3-5.1 [facility] RBC Auto (Bld) [#/Vol]Ordere d By: Tab Dupont on 12-07-2024 RBC (Bld) [#/Vol] 4.14 10*6/uL Low 4.6-6.2 [facility] Serum creatinine measurement (mass/volume)Ordered By: Tab Dupont on 12-07-2024 Creatinine [Mass/Vol] 0.47 mg/dL Low 0.70-1.20 [facility] Serum glucose measurement (m ass/volume)Ordered By: Tab Dupont on 12-07-2024 Glucose [Mass/Vol] 194 mg/dL High 70-99 [facility] Serum or plasma calcium randall urement (mass/volume)Ordered By: Tab Dupont on 12-07-2024 Calcium [Mass/Vol] 8.6 mg/dL 7.6-11.0 [facility] Serum or plasma urea nitroge n measurement (mass/volume)Ordered By: Tab Dupont on 12-07-2024 Urea nitrogen [Mass/Vol] 9 mg/dL 4-19 [facility] Sodium levelOrdered By: Omar Dupont on 12-07-2024 Sodium [Moles/Vol] 136 mmol/L 133-145 [facility] White blood cell (WBC) count Ordered By: Tab Dupont on 12-07-2024 WBC (Bld) [#/Vol] 6.6 10*3/uL 4.4-11.0 [facility] Urine Cultureon 12-02-2024 [facility] STRAIGHT CATH Copy of report sent to In[facility]inter MS#[id number] 12/02/24 1017 JIM. Urine Culture RESULTS CALLED TO LUKASZ Batista 12/02/24 1021 Erika Rosario. REPORT READ BACK BY . Citrobacter freundii [place] Count >100,000 Providencia stuartii Providencia stuartii MARKER [...] R Vancomycin Islt HARINDER 1 S Normal [facility] Comment on above: Performed By: #### L 101.9900, L100.0500, L500.5790, L501.6592 #### [facility] [address] [place], [address] BUN/creatinine ratioOrdered By: Tab Dupont on 11-30-2024 Urea nitrogen/Creatinine [Mass ratio] 23.9 mg/mg High 10-20 [facility] Basic Metabolic Profile (BMP )on 11-30-2024 Anion gap [Moles/Vol] 9 mmol/L Normal 5-15 [facility] Comment on above: Order Comment: 301.2 Performed By: #### L 501.6710, L101.9900, L501.8820 #### [facility] [address] [place], [address] BUN/CRE 23.9 RATIO High 10-20 [facility] Comment on above: Order Comment: 301.2 Performed By: #### L 501.6710, L101.9900, L501.8820 #### [facility] [address] [place], [address] Calcium [Mass/Vol] 8.4 mg/dL Normal 7.6-11.0 [facility] Comment on above: Order Comment: 301.2 Performed By: #### L 501.6710, L101.9900, L501.8820 #### [facility] [address] [place], [address] Chloride [Moles/Vol] 105 mmol/L Normal 96-108 [facility] Comment on above: Order Comment: 301.2 Performed By: #### L 501.6710, L101.9900, L501.8820 #### [facility] [address] [place], [address] CO2 [Moles/Vol] 22.7 mmol/L Normal 22.0-29.0 [facility] Comment on above: Order Comment: 301.2 Performed By: #### L 501.6710, L101.9900, L501.8820 #### [facility] [address] [place], [address] Creatinine [Mass/Vol] 0.4 mg/dL Low 0.8-1.3 [facility] Comment on above: Order Comment: 301.2 Performed By: #### L 501.6710, L101.9900, L501.8820 #### [facility] [address] [place], [address] GFR/1.73 sq M.predicted among non-blacks MDRD (S/P/Bld) [Vol rate/Area] 120 mL/min/{1.73_m2} Normal >60 [facility] Comment on above: Order Comment: 301.2 Result Comment: mL/m in/1.73m2 CKD-EPI Creatinine Equation (2020) Performed By: #### L 501.6710, L101.9900, L501.8820 #### [facility] [address] [place], [address] Glucose [Mass/Vol] 170 mg/dL High 70-99 [facility] Comment on above: Order Comment: 301.2 Performed By: #### L 501.6710, L101.9900, L501.8820 #### [facility] [address] [place], [address] Potassium [Moles/Vol] 3.8 mmol/L Normal 3.3-5.1 [facility] Comment on above: Order Comment: 301.2 Performed By: #### L 501.6710, L101.9900, L501.8820 #### [facility] [address] [place], [address] Sodium [Moles/Vol] 137 mmol/L Normal 133-145 [facility] Comment on above: Order Comment: 301.2 Performed By: #### L 501.6710, L101.9900, L501.8820 #### [facility] [address] [place], [address] Urea nitrogen [Mass/Vol] 10 mg/dL Normal 4-19 [facility] Comment on above: Order Comment: 301.2 Performed By: #### L 501.6710, L101.9900, L501.8820 #### [facility] [address] [place], [address] CBC-Complete Blood Cnt No Di ffon 11-30-2024 Erythrocyte distribution width (RBC) [Ratio] 13.7 % Normal 11.6-14.6 [facility] Comment on above: Order Comment: 301.2 Performed By: #### L 501.6710, L101.9900, L501.8820 #### [facility] [address] [place], [address] Hematocrit (Bld) [Volume fraction] 37.1 % Low 40-54 [facility] Comment on above: Order Comment: 301.2 Performed By: #### L 501.6710, L101.9900, L501.8820 #### [facility] [address] [place], [address] Hemoglobin (Bld) [Mass/Vol] 12.0 g/dL Low 13.0-16.5 [facility] Comment on above: Order Comment: 301.2 Performed By: #### L 501.6710, L101.9900, L501.8820 #### [facility] [address] [place], [address] MCH (RBC) [Entitic mass] 29.9 pg Normal 27.0-32.0 [facility] Comment on above: Order Comment: 301.2 Performed By: #### L 501.6710, L101.9900, L501.8820 #### [facility] [address] [place], [address] MCHC (RBC) [Mass/Vol] 32.3 g/dL Normal 32-36 [facility] Comment on above: Order Comment: 301.2 Performed By: #### L 501.6710, L101.9900, L501.8820 #### [facility] [address] [place], [address] MCV (RBC) [Entitic vol] 92.5 fL Normal 80-94 [facility] Comment on above: Order Comment: 301.2 Performed By: #### L 501.6710, L101.9900, L501.8820 #### [facility] [address] [place], [address] Platelet mean volume (Bld) [Entitic vol] 11.1 fL Normal 6.2-12.0 [facility] Comment on above: Order Comment: 301.2 Performed By: #### L 501.6710, L101.9900, L501.8820 #### [facility] [address] [place], [address] Platelets (Bld) [#/Vol] 230 10*3/uL Normal 150-450 [facility] Comment on above: Order Comment: 301.2 Performed By: #### L 501.6710, L101.9900, [id number] #### [facility] [address] [place], [address] RBC (Bld) [#/Vol] 4.01 10*6/uL Low 4.6-6.2 [facility] Comment on above: Order Comment: 301.2 Performed By: #### L 501.6710, L101.9900, L501.8820 #### [facility] [address] [place], [address] RDW SD 46.8 fl High 35.1-43.9 [facility] Comment on above: Order Comment: 301.2 Performed By: #### L 501.6710, L101.9900, L501.8820 #### [facility] [address] [place], [address] WBC (Bld) [#/Vol] 6.3 10*3/uL Normal 4.4-11.0 [facility] Comment on above: Order Comment: 301.2 Performed By: #### L 501.6710, L101.9900, L501.8820 #### [facility] [address] [place], [address] Carbon dioxide measurementOr dered By: Tab Dupont on 11-30-2024 CO2 [Moles/Vol] 22.7 mmol/L 22.0-29.0 [facility] Chloride measurementOrdered By: Tab Dupont on 11-30-2024 Chloride [Moles/Vol] 105 mmol/L 96-108 [facility] Creatinine [Moles/Vol]Ordere d By: Tab Dupont on 11-30-2024 Creatinine [Mass/Vol] 0.4 mg/dL Low 0.8-1.3 [facility] Erythrocyte distribution wid th ratioOrdered By: Tab Dupont on 11-30-2024 Erythrocyte distribution width (RBC) [Ratio] 13.7 % 11.6-14.6 [facility] Erythrocyte distribution wid th standard deviationOrdered By: Tab Dupont on 11-30-2024 Erythrocyte distribution width (RBC) [Entitic vol] 46.8 fL High 35.1-43.9 [facility] Erythrocyte distribution width (RBC) [Ratio] 46.8 fl High 35.1-43.9 [facility] GFR/1.73 sq M.predicted trish g non-blacks MDRD (S/P/Bld) [Vol rate/Area]Ordered By: Tab Dupont on 11-30-2024 Estimated GFR (MDRD) Non-Af Amer 120 >60 [facility] Comment on above: mL/min/1.73m2 CKD-EP I Creatinine Equation (2020) Glomerular filtration rate ( GFR) estimation/1.73 sq m using serum, plasma, or whole bOrdered By: Tab Dupont on 11-30-2024 GFR/1.73 sq M.predicted among non-blacks MDRD (S/P/Bld) [Vol rate/Area] 120 mL/min/{1.73_m2} >60 [facility] Comment on above: mL/min/1.73m2 CKD-EP I Creatinine Equation (2020) Hematocrit Auto (Bld) [Volum e fraction]Ordered By: Tab Dupont on 11-30-2024 Hematocrit (Bld) [Volume fraction] 37.1 % Low 40-54 [facility] Hemoglobin measurementOrdere d By: Tab Dupont on 11-30-2024 Hemoglobin (Bld) [Mass/Vol] 12.0 g/dL Low 13.0-16.5 [facility] MCV (mean corpuscular volume ) determinationOrdered By: Tab Dupont on 11-30-2024 MCV (RBC) [Entitic vol] 92.5 fL 80-94 [facility] Mean corpuscular hemoglobin (MCH) determinationOrdered By: Tab Dupont on 11-30-2024 MCH (RBC) [Entitic mass] 29.9 pg 27.0-32.0 [facility] Mean corpuscular hemoglobin concentration (MCHC) determinationOrdered By: Tab Dupont on 11-30-2024 MCHC (RBC) [Mass/Vol] 32.3 g/dL 32-36 [facility] Mean platelet volume determi nationOrdered By: Tab Dupont on 11-30-2024 Platelet mean volume (Bld) [Entitic vol] 11.1 fL 6.2-12.0 [facility] Platelet countOrdered By: Vinh Lehman on 11-30-2024 Platelets (Bld) [#/Vol] 230 10*3/uL 150-450 [facility] RBC Auto (Bld) [#/Vol]Ordere d By: Tab Dupont on 11-30-2024 RBC (Bld) [#/Vol] 4.01 10*6/uL Low 4.6-6.2 [facility] Serum glucose measurement (m ass/volume)Ordered By: Tab Dupont on 11-30-2024 Glucose [Mass/Vol] 170 mg/dL High 70-99 [facility] Serum or plasma anion gap de termination (moles/volume)Ordered By: Tab Dupont on 11-30-2024 Anion gap [Moles/Vol] 9 mmol/L 5-15 [facility] Serum or plasma calcium randall urement (mass/volume)Ordered By: Tab Dupont on 11-30-2024 Calcium [Mass/Vol] 8.4 mg/dL 7.6-11.0 [facility] Serum or plasma creatinine m easurement (moles/volume)Ordered By: Tab Dupont on 11-30-2024 Creatinine [Moles/Vol] 0.4 mg/dL Low 0.8-1.3 [facility] Serum or plasma potassium me asurementOrdered By: Tab Dupont on 11-30-2024 Potassium [Moles/Vol] 3.8 mmol/L 3.3-5.1 [facility] Serum or plasma sodium measu rement (moles/volume)Ordered By: Tab Dupont on 11-30-2024 Sodium [Moles/Vol] 137 mmol/L 133-145 [facility] Serum or plasma urea nitroge n measurement (mass/volume)Ordered By: Tab Dupont on 11-30-2024 Urea nitrogen [Mass/Vol] 10 mg/dL 4-19 [facility] White blood cell (WBC) count Ordered By: Tab Dupont on 11-30-2024 WBC (Bld) [#/Vol] 6.3 10*3/uL 4.4-11.0 [facility] Bilirubin Test strip Ql (U)O rdered By: Daisy Costello on 11-29-2024 Bilirubin Ql (U) Negative Negative [facility] Epithelial cells.squamous LM Ql (Urine sed)Ordered By: Daisy Costello on 11-29-2024 Epithelial cells.squamous LM.HPF (Urine sed) [#/Area] 0 /[HPF] 0-5 [facility] Glucose Ql (U)Ordered By: Jose Costello on 11-29-2024 Urine Glucose (UA) Normal mg/dl Normal [facility] Ketones Test strip Ql (U)Ord ered By: Daisy Costello on 11-29-2024 Ketones Ql (U) Negative Negative [facility] Microscopic analysis of urin e for red blood cells (RBC)Ordered By: Daisy Costello on 11-29-2024 Microscopic analysis of urine for red blood cells (RBC) 10-25 SEEN /hpf 0-5 [facility] Urine RBC 10-25 SEEN /hpf 0-5 [facility] Mucus LM Ql (Urine sed)Order ed By: Daisy Costello on 11-29-2024 Mucus Ql (Urine sed) 0 SEEN /hpf [facility] Nitrite Test strip Ql (U)Ord ered By: Daisy Costello on 11-29-2024 Nitrite Ql (U) Positive High Negative [facility] Protein Test strip Ql (U)Ord ered By: Daisy Costello on 11-29-2024 Protein Ql (U) 100 mg/dl High Negative [facility] Squamous epithelial cells de tection in urine sediment by light microscopyOrdered By: Daisy Costello on 11-29-2024 Epithelial cells.squamous LM Ql (Urine sed) 0 SEEN /hpf 0-5 [facility] Urinalysis, Completeon 11-29 BACTERIA 1+ /hpf Normal None Seen [facility] Comment on above: Order Comment: 301.2 Performed By: #### L 101.9900, L100.0500, L500.4050, L501.6710 #### [facility] [address] [place], [address] RBC 10-25 SEEN Normal [address] [place] [address] Comment on above: Order Comment: 301.2 Performed By: #### L 101.9900, L100.0500, L500.4050, L501.6710 #### [facility] [address] [place], [address] WBC >100 SEEN Normal 0-5 [facility] Comment on above: Order Comment: 301.2 Performed By: #### L 101.9900, L100.0500, L500.4050, L501.6710 #### [facility] [address] [place], [address] EPI,SQUAMOUS 0 SEEN Normal [address] [place] [address] Comment on above: Order Comment: 301.2 Performed By: #### L 101.9900, L100.0500, L500.4050, L501.6710 #### [facility] [address] [place], [address] Mucus Ql (Urine sed) 0 SEEN Normal [facility] Comment on above: Order Comment: 301.2 Performed By: #### L 101.9900, L100.0500, L500.4050, L501.6710 #### [facility] [address] [place], [address] Urine blood detectionOrdered By: Daisy Costello on 11-29-2024 Urine Occult Blood 250 /ul High Negative [facility] Urine clarityOrdered By: Ward Costello on 11-29-2024 Clarity (U) Cloudy Clear [facility] Urine color determinationOrd ered By: Daisy Costello on 11-29-2024 Color (U) Yellow Yellow [facility] Urine cultureOrdered By: Ward Costello on 11-29-2024 Bacteria identified Cx Nom (U) Citrobacter freundii Abnormal [facility] Bacteria identified Cx Nom (U) Providencia stuartii Abnormal [facility] Bacteria identified Cx Nom (U) Enterococcus faecalis Abnormal [facility] Bacteria identified Cx Nom (U) Citrobacter freundii Abnormal [facility] Bacteria identified Cx Nom (U) Providencia stuartii Abnormal [facility] Bacteria identified Cx Nom (U) Enterococcus faecalis Abnormal [facility] Urine glucose detectionOrder ed By: Daisy Costello on 11-29-2024 Glucose Ql (U) Normal mg/dl Normal [facility] Urine leukocyte esterase det ection by dipstickOrdered By: Daisy Costello on 11-29-2024 Leukocyte esterase Test strip Ql (U) 500 /ul High Negative [facility] Urine pHOrdered By: Colin on 11-29-2024 pH (U) 6.5 [pH] 5.0 - 8.0 [facility] Urine sediment bacteria coun t by microscopy (number/high power field)Ordered By: Daisy Costello on 11-29-2024 Bacteria LM.HPF (Urine sed) [#/Area] 1 /[HPF] None Seen [facility] Urine specific gravity measu rementOrdered By: Daisy Costello on 11-29-2024 Specific gravity (U) [Rel density] 1.010 1.002-1.030 [facility] Urine urobilinogen measureme ntOrdered By: Daisy Costello on 11-29-2024 Urobilinogen Ql (U) Normal mg/dl Normal [facility] Urobilinogen Ql (U)Ordered B y: Daisy Costello on 11-29-2024 Urine Urobilinogen Normal mg/dl Normal [facility] White blood cell countOrdere d By: Daisy Costello on 11-29-2024 Urine WBC >100 SEEN /hpf 0-5 [facility] White blood cell count >100 SEEN /hpf 0-5 [facility] Progress Noteson 11-08-2024 [employer] Authentication Interface Message Text Documentation: Mode: Video [...] months (around 02/05/2025) for in-person visit with [facility]. Faisal Simeon DO 11/08/2024 Normal [facility] 10-27-2024 36 Returned call unable to leave message doug was out for the day [facility] 36on 10-26-2024 36 Name of caller: Dax banks Contact phone number: [phone] Relationship to Patient: Tierra Delvalle Provider: Dr. Gillette Practice: [facility] Chief Complaint/Reason for Call: Doug states she missed a call from the office to schedule the patient and would like a return call. Please review. Best time of day caller can be reached: any Patient advised that office/PCP has 24-48 business hours to return their call: Yes Normal [facility] 36 Called and left message to call to reschedule appointment [facility] 36on 10-25-2024 36 Name of Caller: Dax banks Contact Reason for Appointment: Please call to r/s cx appt for 10.26.24 due to weather conditions. Follow up for pain management//no showed on 08.04.24// Doug from [facility] appt//medicare medicaid Office Name: [facility] Medication Refills need, if any: n/a Medication Name: n/a Normal [facility] Basic Metabolic Profile (BMP )on 10-10-2024 BUN/CRE 19.6 RATIO Normal 10-20 [facility] Comment on above: Order Comment: 301.2 0000 Performed By: #### L 501.6710, L101.9900, L501.8820 #### [facility] [address] [place], [address] CA,Total 8.7 mg/dL Normal 8.5-10.1 [facility] Comment on above: Order Comment: 301.2 0000 Performed By: #### L 501.6710, L101.9900, L501.8820 #### [facility] [address] [place], [address] Chloride [Moles/Vol] 109 mmol/L High 98-107 [facility] Comment on above: Order Comment: 301.2 0000 Performed By: #### L 501.6710, L101.9900, L501.8820 #### [facility] [address] [place], [address] CO2 [Moles/Vol] 22.0 mmol/L Normal 21.0-32.0 [facility] Comment on above: Order Comment: 301.2 0000 Performed By: #### L 501.6710, L101.9900, L501.8820 #### [facility] [address] [place], [address] Creatinine [Mass/Vol] 0.56 mg/dL Low 0.70-1.30 [facility] Comment on above: Order Comment: 301.2 0000 Result Comment: The validity of the calculated GFR GFRAA in patients over 70 years has not been determined. Clinical correlation is essential. Performed By: #### L 501.6710, L101.9900, L501.8820 #### [facility] [address] [place], [address] EST GFR - AA 189 mL/min Normal >60 [facility] Comment on above: Order Comment: 301.2 0000 Result Comment: Afri can Citizen Of [place] GFR Calc Performed By: #### L 501.6710, L101.9900, L501.8820 #### [facility] [address] [place], [address] GAP 7 Normal 5-15 [facility] Comment on above: Order Comment: 301.2 0000 Performed By: #### L 501.6710, L101.9900, L501.8820 #### [facility] [address] [place], [address] GFR/1.73 sq M.predicted among non-blacks MDRD (S/P/Bld) [Vol rate/Area] 156 mL/min/{1.73_m2} Normal >60 [facility] Comment on above: Order Comment: 301.2 0000 Result Comment: Non- GFR Calc Performed By: #### L 501.6710, L101.9900, L501.8820 #### [facility] [address] [place], [address] Glucose [Mass/Vol] 108 mg/dL High 74-106 [facility] Comment on above: Order Comment: 301.2 0000 Result Comment: Fast ing Glucose result from 100 to 125 mg/dL suggests IMPAIRED HOMEOSTASIS per A.D.A. criteria. Performed By: #### L 501.6710, L101.9900, L501.8820 #### [facility] [address] [place], [address] Potassium [Moles/Vol] 4.0 mmol/L Normal 3.5-5.1 [facility] Comment on above: Order Comment: 301.2 0000 Performed By: #### L 501.6710, L101.9900, L501.8820 #### [facility] [address] [place], [address] Sodium [Moles/Vol] 139 mmol/L Normal 136-145 [facility] Comment on above: Order Comment: 301.2 0000 Performed By: #### L 501.6710, L101.9900, L501.8820 #### [facility] [address] [place], [address] Urea nitrogen [Mass/Vol] 11 mg/dL Normal 7-18 [facility] Comment on above: Order Comment: 301.2 0000 Performed By: #### L 501.6710, L101.9900, L501.8820 #### [facility] [address] [place], [address] Blood urea nitrogen (BUN)/cr eatinine ratioOrdered By: Tab Dupont on 10-10-2024 Urea nitrogen/Creatinine [Mass ratio] 19.6 mg/mg 10-20 [facility] CBC-Complete Blood Cnt No Di ffon 10-10-2024 Erythrocyte distribution width (RBC) [Ratio] 13.9 % Normal 11.6-14.6 [facility] Comment on above: Order Comment: 313-2 Performed By: #### L 100.0500, L500.2500 #### [facility] [address] [place], [address] Hematocrit (Bld) [Volume fraction] 42.2 % Normal 40-54 [facility] Comment on above: Order Comment: 313-2 Performed By: #### L 100.0500, L500.2500 #### [facility] [address] [place], [address] Hemoglobin (Bld) [Mass/Vol] 13.4 g/dL Normal 13.0-16.5 [facility] Comment on above: Order Comment: 313-2 Performed By: #### L 100.0500, L500.2500 #### [facility] [address] [place], [address] MCH (RBC) [Entitic mass] 29.8 pg Normal 27.0-32.0 [facility] Comment on above: Order Comment: 313-2 Performed By: #### L 100.0500, L500.2500 #### [facility] [address] [place], [address] MCHC (RBC) [Mass/Vol] 31.8 g/dL Low 32-36 [facility] Comment on above: Order Comment: 313-2 Performed By: #### L 100.0500, L500.2500 #### [facility] [address] [place], [address] MCV (RBC) [Entitic vol] 94.0 fL Normal 80-94 [facility] Comment on above: Order Comment: 313-2 Performed By: #### L 100.0500, L500.2500 #### [facility] [address] [place], [address] Platelet mean volume (Bld) [Entitic vol] 10.5 fL Normal 6.2-12.0 [facility] Comment on above: Order Comment: 313-2 Performed By: #### L 100.0500, L500.2500 #### [facility] [address] [place], [address] Platelets (Bld) [#/Vol] 283 10*3/uL Normal 150-450 [facility] Comment on above: Order Comment: 313-2 Performed By: #### L 100.0500, L500.2500 #### [facility] [address] [place], [address] RBC (Bld) [#/Vol] 4.49 10*6/uL Low 4.6-6.2 [facility] Comment on above: Order Comment: 313-2 Performed By: #### L 100.0500, L500.2500 #### [facility] [address] [place], [address] RDW SD 47.8 fl High 35.1-43.9 [facility] Comment on above: Order Comment: 313-2 Performed By: #### L 100.0500, L500.2500 #### [facility] [address] [place], [address] WBC (Bld) [#/Vol] 7.7 10*3/uL Normal 4.4-11.0 [facility] Comment on above: Order Comment: 313-2 Performed By: #### L 100.0500, L500.2500 #### [facility] [address] [place], [address] Carbon dioxide measurementOr dered By: Tab Dupont on 10-10-2024 CO2 [Moles/Vol] 22.0 mmol/L 21.0-32.0 [facility] Chloride measurementOrdered By: Tab Dupont on 10-10-2024 Chloride [Moles/Vol] 109 mmol/L High 98-107 [facility] Erythrocyte distribution wid th ratioOrdered By: Tab Dupont on 10-10-2024 Erythrocyte distribution width (RBC) [Ratio] 13.9 % 11.6-14.6 [facility] Erythrocyte distribution wid th standard deviationOrdered By: Tab Dupont on 10-10-2024 Erythrocyte distribution width (RBC) [Entitic vol] 47.8 fL High 35.1-43.9 [facility] Estimated glomerular filtrat ion rate (GFR) AmericanOrdered By: Tab Dupont on 10-10-2024 Estimated GFR (MDRD) Amer 189 mL/min >60 [facility] Comment on above: GFR Calc Glomerular filtration rate ( GFR) estimationOrdered By: Tab Dupont on 10-10-2024 Estimated GFR (MDRD) Non-Af Amer 156 mL/min >60 [facility] Comment on above: Non- GFR Calc Glucose measurementOrdered B y: Tab Dupont on 10-10-2024 Glucose [Mass/Vol] 108 mg/dL High 74-106 [facility] Comment on above: Fasting Glucose resu lt from 100 to 125 mg/dL suggests IMPAIRED HOMEOSTASIS per A.D.A. criteria. Hematocrit Auto (Bld) [Volum e fraction]Ordered By: Tab Dupont on 10-10-2024 Hematocrit (Bld) [Volume fraction] 42.2 % 40-54 [facility] Hemoglobin measurementOrdere d By: Tab Dupont on 10-10-2024 Hemoglobin (Bld) [Mass/Vol] 13.4 g/dL 13.0-16.5 [facility] MCV (mean corpuscular volume ) determinationOrdered By: Tab Dupont on 10-10-2024 MCV (RBC) [Entitic vol] 94.0 fL 80-94 [facility] Mean corpuscular hemoglobin (MCH) determinationOrdered By: Tab Dupont on 10-10-2024 MCH (RBC) [Entitic mass] 29.8 pg 27.0-32.0 [facility] Mean corpuscular hemoglobin concentration (MCHC) determinationOrdered By: Tab Dupont on 10-10-2024 MCHC (RBC) [Mass/Vol] 31.8 g/dL Low 32-36 [facility] Mean platelet volume determi nationOrdered By: Tab Dupont on 10-10-2024 Platelet mean volume (Bld) [Entitic vol] 10.5 fL 6.2-12.0 [facility] Platelet countOrdered By: Vinh Lehman on 10-10-2024 Platelets (Bld) [#/Vol] 283 10*3/uL 150-450 [facility] Potassium measurementOrdered By: Tab Dupont on 10-10-2024 Potassium [Moles/Vol] 4.0 mmol/L 3.5-5.1 [facility] RBC Auto (Bld) [#/Vol]Ordere d By: Tab Dupont on 10-10-2024 RBC (Bld) [#/Vol] 4.49 10*6/uL Low 4.6-6.2 [facility] Serum anion gap measurementO rdered By: Tab Dupont on 10-10-2024 Anion gap [Moles/Vol] 7 mmol/L 5-15 [facility] Serum or plasma calcium randall urement (mass/volume)Ordered By: Tab Dupont on 10-10-2024 Calcium [Mass/Vol] 8.7 mg/dL 8.5-10.1 [facility] Serum or plasma creatinine m easurement (mass/volume)Ordered By: Tab Dupont on 10-10-2024 Creatinine [Mass/Vol] 0.56 mg/dL Low 0.70-1.30 [facility] Comment on above: The validity of the calculated GFR & GFRAA in patients over 70 years has not been determined. Clinical correlation is essential. Serum or plasma urea nitroge n measurement (mass/volume)Ordered By: Tab Dupont on 10-10-2024 Urea nitrogen [Mass/Vol] 11 mg/dL 7-18 [facility] Sodium levelOrdered By: Omar Dupont on 10-10-2024 Sodium [Moles/Vol] 139 mmol/L 136-145 [facility] White blood cell (WBC) count Ordered By: Tab Dupont on 10-10-2024 WBC (Bld) [#/Vol] 7.7 10*3/uL 4.4-11.0 [facility] Basic Metabolic Profile (BMP )on 10-03-2024 BUN/CRE 14.7 RATIO Normal 10-20 [facility] Comment on above: Order Comment: 301.2 0000 Performed By: #### L 501.6710, L101.9900, L501.8820 #### [facility] [address] [place], [address] CA,Total 8.7 mg/dL Normal 8.5-10.1 [facility] Comment on above: Order Comment: 301.2 0000 Performed By: #### L 501.6710, L101.9900, [id number] #### [facility] [address] [place], [address] Chloride [Moles/Vol] 109 mmol/L High 98-107 [facility] Comment on above: Order Comment: 301.2 0000 Performed By: #### L 501.6710, L101.9900, [id number] #### [facility] [address] [place], [address] CO2 [Moles/Vol] 24.0 mmol/L Normal 21.0-32.0 [facility] Comment on above: Order Comment: 301. 0000 Performed By: #### L 501.6710, L101.9900, [id number] #### [facility] [address] [place], [address] Creatinine [Mass/Vol] 0.48 mg/dL Low 0.70-1.30 [facility] Comment on above: Order Comment: 301.2 0000 Result Comment: The validity of the calculated GFR GFRAA in patients over 70 years has not been determined. Clinical correlation is essential. Performed By: #### L 501.6710, L101.9900, L501.8820 #### [facility] [address] [place], [address] EST GFR - AA 229 mL/min Normal >60 [facility] Comment on above: Order Comment: 301.2 0000 Result Comment: Afri can Citizen Of [place] GFR Calc Performed By: #### L 501.6710, L101.9900, [id number] #### [facility] [address] [place], [address] GAP 5 Normal 5-15 [facility] Comment on above: Order Comment: 301. 0000 Performed By: #### L 501.6710, L101.9900, [id number] #### [facility] [address] [place], [address] GFR/1.73 sq M.predicted among non-blacks MDRD (S/P/Bld) [Vol rate/Area] 189 mL/min/{1.73_m2} Normal >60 [facility] Comment on above: Order Comment: 301.2 0000 Result Comment: Non- GFR Calc Performed By: #### L 501.6710, L101.9900, [id number] #### [facility] [address] [place], [address] Glucose [Mass/Vol] 105 mg/dL Normal 74-106 [facility] Comment on above: Order Comment: 301.2 0000 Result Comment: Fast ing Glucose result from 100 to 125 mg/dL suggests IMPAIRED HOMEOSTASIS per A.D.A. criteria. Performed By: #### L 501.6710, L101.9900, L501.8820 #### [facility] [address] [place], [address] Potassium [Moles/Vol] 3.7 mmol/L Normal 3.5-5.1 [facility] Comment on above: Order Comment: 301.2 0000 Performed By: #### L 501.6710, L101.9900, [id number] #### [facility] [address] [place], [address] Sodium [Moles/Vol] 138 mmol/L Normal 136-145 [facility] Comment on above: Order Comment: 301.2 0000 Performed By: #### L 501.6710, L101.9900, [id number] #### [facility] [address] [place], [address] Urea nitrogen [Mass/Vol] 7 mg/dL Normal 7-18 [facility] Comment on above: Order Comment: 301.2 0000 Performed By: #### L 501.6710, L101.9900, [id number] #### [facility] [address] [place], [address] Blood urea nitrogen (BUN)/cr eatinine ratioOrdered By: Tab Dupont on 10-03-2024 Urea nitrogen/Creatinine [Mass ratio] 14.7 mg/mg - [facility] CBC-Complete Blood Cnt No Di ffon 10-03-2024 Erythrocyte distribution width (RBC) [Ratio] 14.0 % Normal 11.6-14.6 [facility] Comment on above: Order Comment: 301.2 0000 Performed By: #### L 501.6710, L101.9900, [id number] #### [facility] [address] [place], [address] Hematocrit (Bld) [Volume fraction] 38.4 % Low 40-54 [facility] Comment on above: Order Comment: 301.2 0000 Performed By: #### L 501.6710, L101.9900, [id number] #### [facility] [address] [place], [address] Hemoglobin (Bld) [Mass/Vol] 12.5 g/dL Low 13.0-16.5 [facility] Comment on above: Order Comment: 301.2 0000 Performed By: #### L 501.6710, L101.9900, [id number] #### [facility] [address] [place], [address] MCH (RBC) [Entitic mass] 30.3 pg Normal 27.0-32.0 [facility] Comment on above: Order Comment: 301.2 0000 Performed By: #### L 501.6710, L101.9900, [id number] #### [facility] [address] [place], [address] MCHC (RBC) [Mass/Vol] 32.6 g/dL Normal 32-36 [facility] Comment on above: Order Comment: 301.2 0000 Performed By: #### L 501.6710, L101.9900, [id number] #### [facility] [address] [place], [address] MCV (RBC) [Entitic vol] 93.0 fL Normal 80-94 [facility] Comment on above: Order Comment: 301.2 0000 Performed By: #### L 501.6710, L101.9900, [id number] #### [facility] [address] [place], [address] Platelet mean volume (Bld) [Entitic vol] 10.4 fL Normal 6.2-12.0 [facility] Comment on above: Order Comment: 301.2 0000 Performed By: #### L 501.6710, L101.9900, [id number] #### [facility] [address] [place], [address] Platelets (Bld) [#/Vol] 284 10*3/uL Normal 150-450 [facility] Comment on above: Order Comment: 301.2 0000 Performed By: #### L 501.6710, L101.9900, [id number] #### [facility] [address] [place], [address] RBC (Bld) [#/Vol] 4.13 10*6/uL Low 4.6-6.2 [facility] Comment on above: Order Comment: 301.2 0000 Performed By: #### L 501.6710, L101.9900, [id number] #### [facility] [address] [place], [address] RDW SD 48.5 fl High 35.1-43.9 [facility] Comment on above: Order Comment: 301.2 0000 Performed By: #### L 501.6710, L101.9900, [id number] #### [facility] [address] [place], [address] WBC (Bld) [#/Vol] 7.8 10*3/uL Normal 4.4-11.0 [facility] Comment on above: Order Comment: 301.2 0000 Performed By: #### L 501.6710, L101.9900, [id number] #### [facility] [address] [place], [address] Carbon dioxide measurementOr dered By: Tab Dupont on 10-03-2024 CO2 [Moles/Vol] 24.0 mmol/L 21.0-32.0 [facility] Chloride measurementOrdered By: Tab Dupont on 10-03-2024 Chloride [Moles/Vol] 109 mmol/L High 98-107 [facility] Erythrocyte distribution wid th ratioOrdered By: Tab Dupont on 10-03-2024 Erythrocyte distribution width (RBC) [Ratio] 14.0 % 11.6-14.6 [facility] Erythrocyte distribution wid th standard deviationOrdered By: Tab Dupont on 10-03-2024 Erythrocyte distribution width (RBC) [Entitic vol] 48.5 fL High 35.1-43.9 [facility] Estimated glomerular filtrat ion rate (GFR) AmericanOrdered By: Tab Dupont on 10-03-2024 Estimated GFR (MDRD) Amer 229 mL/min >60 [facility] Comment on above: GFR Calc Glomerular filtration rate ( GFR) estimationOrdered By: Tab Dupont on 10-03-2024 Estimated GFR (MDRD) Non-Af Amer 189 mL/min >60 [facility] Comment on above: Non- GFR Calc Glucose measurementOrdered B y: Tab Dupont on 10-03-2024 Glucose [Mass/Vol] 105 mg/dL 74-106 [facility] Comment on above: Fasting Glucose resu lt from 100 to 125 mg/dL suggests IMPAIRED HOMEOSTASIS per A.D.A. criteria. Hematocrit Auto (Bld) [Volum e fraction]Ordered By: Tab Dupont on 10-03-2024 Hematocrit (Bld) [Volume fraction] 38.4 % Low 40-54 [facility] Hemoglobin measurementOrdere d By: Tab Dupont on 10-03-2024 Hemoglobin (Bld) [Mass/Vol] 12.5 g/dL Low 13.0-16.5 [facility] MCV (mean corpuscular volume ) determinationOrdered By: Tab Dupont on 10-03-2024 MCV (RBC) [Entitic vol] 93.0 fL 80-94 [facility] Mean corpuscular hemoglobin (MCH) determinationOrdered By: Tab Dupont on 10-03-2024 MCH (RBC) [Entitic mass] 30.3 pg 27.0-32.0 [facility] Mean corpuscular hemoglobin concentration (MCHC) determinationOrdered By: Tab Dupont on 10-03-2024 MCHC (RBC) [Mass/Vol] 32.6 g/dL 32-36 [facility] Mean platelet volume determi nationOrdered By: Tab Dupont on 10-03-2024 Platelet mean volume (Bld) [Entitic vol] 10.4 fL 6.2-12.0 [facility] Platelet countOrdered By: Vinh Lehman on 10-03-2024 Platelets (Bld) [#/Vol] 284 10*3/uL 150-450 [facility] Potassium measurementOrdered By: Tab Dupont on 10-03-2024 Potassium [Moles/Vol] 3.7 mmol/L 3.5-5.1 [facility] RBC Auto (Bld) [#/Vol]Ordere d By: Tab Dupont on 10-03-2024 RBC (Bld) [#/Vol] 4.13 10*6/uL Low 4.6-6.2 [facility] Serum anion gap measurementO rdered By: Tab Dupont on 10-03-2024 Anion gap [Moles/Vol] 5 mmol/L 5-15 [facility] Serum or plasma calcium randall urement (mass/volume)Ordered By: Tab Dupont on 10-03-2024 Calcium [Mass/Vol] 8.7 mg/dL 8.5-10.1 [facility] Serum or plasma creatinine m easurement (mass/volume)Ordered By: Tab Dupont on 10-03-2024 Creatinine [Mass/Vol] 0.48 mg/dL Low 0.70-1.30 [facility] Comment on above: The validity of the calculated GFR & GFRAA in patients over 70 years has not been determined. Clinical correlation is essential. Serum or plasma urea nitroge n measurement (mass/volume)Ordered By: Tab Dupont on 10-03-2024 Urea nitrogen [Mass/Vol] 7 mg/dL 7-18 [facility] Sodium levelOrdered By: Omar Dupont on 10-03-2024 Sodium [Moles/Vol] 138 mmol/L 136-145 [facility] White blood cell (WBC) count Ordered By: Tab Dupont on 10-03-2024 WBC (Bld) [#/Vol] 7.8 10*3/uL 4.4-11.0 [facility] Patient Instructionson 09-30 [employer] Authentication Interface Message Text Completed UDS. Inserted 18Fr 10cc santana Call to schedule appt with Urology Dr Jorge Grimm MD (Surgeon) [address] [place] [address] [address] scan given recurrent blood [...] burning on urination, call the office at [phone] Thursday through Thursday 8:00 AM to 4:30 PM. For emergencies, go the Emergency Room. If you do not already have a follow up appointment scheduled with your physician, call the office at [phone] to schedule one. Normal [employer] Progress Noteson 09-30-2024 [employer] Authentication Interface Message Text SPINAL CORD INJURY [...] awareness is altered. Unknown about filling (chronic santnaa). Sensation with cath trauma and scrotum but [...] p (more content not included)... Normal [employer] C-reactive protein measureme nt by high sensitivity methodOrdered By: Tab Dupont on 09-29-2024 C-Reactive Protein Extended Range 38.30 mg/L High 0.0-3.0 [facility] Comment on above: C-Reactive Protein ( CRP) provides useful information for thediagnosis, therapy and monitoring of inflammatory processesand associated diseases. For the evaluation of Relative Riskfor Cardiovascular Disease, a High Sensitivity CRP (HSCRP)should be ordered. CBC-Complete Blood Cnt No Di ffon 09-29-2024 Erythrocyte distribution width (RBC) [Ratio] 14.4 % Normal 11.6-14.6 [facility] Comment on above: Order Comment: 301.2 Performed By: #### L 101.9900, L100.0500, L500.4050, L501.6710 #### [facility] [address] [place], [address] Hematocrit (Bld) [Volume fraction] 40.3 % Normal 40-54 [facility] Comment on above: Order Comment: 301.2 Performed By: #### L 101.9900, L100.0500, L500.4050, L501.6710 #### [facility] [address] [place], [address] Hemoglobin (Bld) [Mass/Vol] 13.3 g/dL Normal 13.0-16.5 [facility] Comment on above: Order Comment: 301.2 Performed By: #### L 101.9900, L100.0500, L500.4050, L501.6710 #### [facility] [address] [place], [address] MCH (RBC) [Entitic mass] 31.4 pg Normal 27.0-32.0 [facility] Comment on above: Order Comment: 301.2 Performed By: #### L 101.9900, L100.0500, L500.4050, L501.6710 #### [facility] [address] [place], [address] MCHC (RBC) [Mass/Vol] 33.0 g/dL Normal 32-36 [facility] Comment on above: Order Comment: 301.2 Performed By: #### L 101.9900, L100.0500, L500.4050, L501.6710 #### [facility] [address] [place], [address] MCV (RBC) [Entitic vol] 95.0 fL High 80-94 [facility] Comment on above: Order Comment: 301.2 Performed By: #### L 101.9900, L100.0500, L500.4050, L501.6710 #### [facility] [address] [place], [address] Platelet mean volume (Bld) [Entitic vol] 10.6 fL Normal 6.2-12.0 [facility] Comment on above: Order Comment: 301.2 Performed By: #### L 101.9900, L100.0500, L500.4050, L501.6710 #### [facility] [address] [place], [address] Platelets (Bld) [#/Vol] 270 10*3/uL Normal 150-450 [facility] Comment on above: Order Comment: 301.2 Performed By: #### L 101.9900, L100.0500, L500.4050, L501.6710 #### [facility] [address] [place], [address] RBC (Bld) [#/Vol] 4.24 10*6/uL Low 4.6-6.2 [facility] Comment on above: Order Comment: 301.2 Performed By: #### L 101.9900, L100.0500, L500.4050, L501.6710 #### [facility] [address] [place], [address] RDW SD 50.0 fl High 35.1-43.9 [facility] Comment on above: Order Comment: 301.2 Performed By: #### L 101.9900, L100.0500, L500.4050, L501.6710 #### [facility] [address] [place], [address] WBC (Bld) [#/Vol] 8.7 10*3/uL Normal 4.4-11.0 [facility] Comment on above: Order Comment: 301.2 Performed By: #### L 101.9900, L100.0500, L500.4050, L501.6710 #### [facility] [address] [place], [address] CRPon 09-29-2024 C-REACTIVE PROT 38.30 mg/L High 0.0-3.0 [facility] Comment on above: Order Comment: 301.2 Result Comment: C-Re active Protein (CRP) provides useful information for the diagnosis, therapy and monitoring of inflammatory processes and associated diseases. For the evaluation of Relative Risk for Cardiovascular Disease, a High Sensitivity CRP (HSCRP) should be ordered. Performed By: #### L 101.9900, L100.0500, L500.4050, L501.6710 #### [facility] [address] [place], [address] Erythrocyte Sed Rateon 09-29 SED RATE 47 mm/hr High 0-20 [facility] Comment on above: Order Comment: 301.2 Performed By: #### L 101.9900, L100.0500, L500.4050, L501.6710 #### [facility] [address] [place], [address] Erythrocyte distribution wid th ratioOrdered By: Tab Dupont on 09-29-2024 Erythrocyte distribution width (RBC) [Ratio] 14.4 % 11.6-14.6 [facility] Erythrocyte distribution wid th standard deviationOrdered By: Tab Dupont on 09-29-2024 Erythrocyte distribution width (RBC) [Entitic vol] 50.0 fL High 35.1-43.9 [facility] Erythrocyte sedimentation ra teOrdered By: Tab Dupont on 09-29-2024 ESR (Bld) [Velocity] 47 mm/h High 0-20 [facility] Hematocrit Auto (Bld) [Volum e fraction]Ordered By: Tab Dupont on 09-29-2024 Hematocrit (Bld) [Volume fraction] 40.3 % 40-54 [facility] Hemoglobin measurementOrdere d By: Tab Dupont on 09-29-2024 Hemoglobin (Bld) [Mass/Vol] 13.3 g/dL 13.0-16.5 [facility] MCV (mean corpuscular volume ) determinationOrdered By: Tab Dupont on 09-29-2024 MCV (RBC) [Entitic vol] 95.0 fL High 80-94 [facility] Mean corpuscular hemoglobin (MCH) determinationOrdered By: Tab Dupont on 09-29-2024 MCH (RBC) [Entitic mass] 31.4 pg 27.0-32.0 [facility] Mean corpuscular hemoglobin concentration (MCHC) determinationOrdered By: Tab Dupont on 09-29-2024 MCHC (RBC) [Mass/Vol] 33.0 g/dL 32-36 [facility] Mean platelet volume determi nationOrdered By: Tab Dupont on 09-29-2024 Platelet mean volume (Bld) [Entitic vol] 10.6 fL 6.2-12.0 [facility] Platelet countOrdered By: Vinh Lehman on 09-29-2024 Platelets (Bld) [#/Vol] 270 10*3/uL 150-450 [facility] RBC Auto (Bld) [#/Vol]Ordere d By: Tab Dupont on 09-29-2024 RBC (Bld) [#/Vol] 4.24 10*6/uL Low 4.6-6.2 [facility] White blood cell (WBC) count Ordered By: Tab Dupont on 09-29-2024 WBC (Bld) [#/Vol] 8.7 10*3/uL 4.4-11.0 [facility] Basic Metabolic Profile (BMP )on 09-20-2024 BUN/CRE 26.4 RATIO High 10-20 [facility] Comment on above: Order Comment: 301.2 0000 Performed By: #### L 501.6710, L101.9900, L501.8820 #### [facility] [address] [place], [address] CA,Total 8.2 mg/dL Low 8.5-10.1 [facility] Comment on above: Order Comment: 301.2 0000 Performed By: #### L 501.6710, L101.9900, L501.8820 #### [facility] [address] [place], [address] Chloride [Moles/Vol] 107 mmol/L Normal 98-107 [facility] Comment on above: Order Comment: 301.2 0000 Performed By: #### L 501.6710, L101.9900, L501.8820 #### [facility] [address] [place], [address] CO2 [Moles/Vol] 24.0 mmol/L Normal 21.0-32.0 [facility] Comment on above: Order Comment: 301.2 0000 Performed By: #### L 501.6710, L101.9900, L501.8820 #### [facility] [address] [place], [address] Creatinine [Mass/Vol] 0.61 mg/dL Low 0.70-1.30 [facility] Comment on above: Order Comment: 301.2 0000 Result Comment: The validity of the calculated GFR GFRAA in patients over 70 years has not been determined. Clinical correlation is essential. Performed By: #### L 501.6710, L101.9900, L501.8820 #### [facility] [address] [place], [address] EST GFR - AA 173 mL/min Normal >60 [facility] Comment on above: Order Comment: 301.2 0000 Result Comment: Afri can Citizen Of [place] GFR Calc Performed By: #### L 501.6710, L101.9900, L501.8820 #### [facility] [address] [place], [address] GAP 6 Normal 5-15 [facility] Comment on above: Order Comment: 301.2 0000 Performed By: #### L 501.6710, L101.9900, L501.8820 #### [facility] [address] [place], [address] GFR/1.73 sq M.predicted among non-blacks MDRD (S/P/Bld) [Vol rate/Area] 143 mL/min/{1.73_m2} Normal >60 [facility] Comment on above: Order Comment: 301.2 0000 Result Comment: Non- GFR Calc Performed By: #### L 501.6710, L101.9900, L501.8820 #### [facility] [address] [place], [address] Glucose [Mass/Vol] 134 mg/dL High 74-106 [facility] Comment on above: Order Comment: 301. 0000 Result Comment: Fast ing Glucose result greater than or equal to 126 mg/dL suggests DIABETES MELLITUS per A.D.A. criteria. Performed By: #### L 501.6710, L101.9900, L501.8820 #### [facility] [address] [place], [address] Potassium [Moles/Vol] 3.3 mmol/L Low 3.5-5.1 [facility] Comment on above: Order Comment: 301.2 0000 Performed By: #### L 501.6710, L101.9900, L501.8820 #### [facility] [address] [place], [address] Sodium [Moles/Vol] 137 mmol/L Normal 136-145 [facility] Comment on above: Order Comment: 301.2 0000 Performed By: #### L 501.6710, L101.9900, L501.8820 #### [facility] [address] [place], [address] Urea nitrogen [Mass/Vol] 16 mg/dL Normal 7-18 [facility] Comment on above: Order Comment: 301.2 0000 Performed By: #### L 501.6710, L101.9900, L501.8820 #### [facility] [address] [place], [address] Blood urea nitrogen (BUN)/cr eatinine ratioOrdered By: Tab Dupont on 09-20-2024 Urea nitrogen/Creatinine [Mass ratio] 26.4 mg/mg High 10-20 [facility] Carbon dioxide measurementOr dered By: Tab Dupont on 09-20-2024 CO2 [Moles/Vol] 24.0 mmol/L 21.0-32.0 [facility] Chloride measurementOrdered By: Tab Dupont on 09-20-2024 Chloride [Moles/Vol] 107 mmol/L 98-107 [facility] Estimated glomerular filtrat ion rate (GFR) AmericanOrdered By: Tab Dupont on 09-20-2024 Estimated GFR (MDRD) Amer 173 mL/min >60 [facility] Comment on above: GFR Calc Glomerular filtration rate ( GFR) estimationOrdered By: Tab Dupont on 09-20-2024 Estimated GFR (MDRD) Non-Af Amer 143 mL/min >60 [facility] Comment on above: Non- GFR Calc Glucose measurementOrdered B y: Tab Dupont on 09-20-2024 Glucose [Mass/Vol] 134 mg/dL High 74-106 [facility] Comment on above: Fasting Glucose resu lt greater than or equal to 126 mg/dL suggests DIABETES MELLITUS per A.D.A. criteria. Potassium measurementOrdered By: Tab Dupont on 09-20-2024 Potassium [Moles/Vol] 3.3 mmol/L Low 3.5-5.1 [facility] Serum anion gap measurementO rdered By: Tab Dupont on 09-20-2024 Anion gap [Moles/Vol] 6 mmol/L 5-15 [facility] Serum or plasma calcium randall urement (mass/volume)Ordered By: Tab Dupont on 09-20-2024 Calcium [Mass/Vol] 8.2 mg/dL Low 8.5-10.1 [facility] Serum or plasma creatinine m easurement (mass/volume)Ordered By: Tab Dupont on 09-20-2024 Creatinine [Mass/Vol] 0.61 mg/dL Low 0.70-1.30 [facility] Comment on above: The validity of the calculated GFR & GFRAA in patients over 70 years has not been determined. Clinical correlation is essential. Serum or plasma urea nitroge n measurement (mass/volume)Ordered By: Tab Dupont on 09-20-2024 Urea nitrogen [Mass/Vol] 16 mg/dL 04-21 [facility] Sodium levelOrdered By: Omar Dupont on 09-20-2024 Sodium [Moles/Vol] 137 mmol/L 136-145 [facility] Progress Noteson 08-22-2024 [employer] Authentication Interface Message Text Rheumatology New visit [...] Resource Strain: Low Risk (04/24/2023) Received from [facility] Overall Financial Resource Strain (CARDIA) Difficulty of Paying Living Expenses: Not hard at all Food Insecurity: No Food Insecurity (05/18/2024) Received from [facility] Hunger Vital Sign Worried About Running Out of Food in the Last Year: Never true Ran Out of Food in the Last Year: Never true Transportation Needs: No Transportation Needs (05/18/2024) Received from [facility] PRAPARE - Transportation Lack of Transportation (Medical): No Lack of Transportation (Non-Medical): No Intimate Partner Violence: Not At Risk (05/18/2024) [facility] Humiliation, Afraid, Rape, and Kick questionnaire Fear [...] - (more content not included)... Normal [employer] Telephone Encounteron 2023 [employer] Authentication Interface Message Text Spoke with [facility] where pt resides and given the date and time of GYROSCOPE TECHNICIAN video visit with Dr. Shultz at 8:20 am on 08/22/24. This information will be relayed to pt. Normal [employer] Addendum Noteon 08-01-2024 [employer] Authentication Interface Message Text Addended by: FAISAL SIMEON on: 08/01/2024 02:57 PM Modules accepted: Level of Service Normal [facility] [employer] Patient Instructionson 08-01 [employer] Authentication Interface Message Text -Continue PT/OT -Please follow your appoitment with pain team and rheumatology -You are scheduled for bladder study on 09/30/24 -continue scheduled bowel care daily Normal [employer] Progress Noteson 07-31-2024 [employer] Authentication Interface Message Text Documentation: Mode: Video [...] following spinal surgery [place]2 yrs ago [place] . In 2019, pt had his first back surgery performed by [facility] which was an interbody fusion. 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 At that point, the hospital took the hardware out and did not replace it with the goal of treating the infection. 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 After the infection was treated, [facility] extended his fusion, decompressed the back, and replaced all hardware. At that time he lost all motor and sensation to his lower extremities. He was independent uptill december 2021 till his last spine surgery two year ago.Since 2021 he is in longterm and he changes 5 longterm so far. Currently SNF in [facility]. Last seen on 06/13/24 in clinic and recommendations was: -Continue PT/OT -Bowel care: schedule bowel care once/day (either after breakfast or dinner) - using suppository and manual stimulation over commode chair will be more helpful than over bed . - Continue skin care - Follow [facility] service consult( we requested today ) [...] to display Other SOCIAL Home situation: NA TECHNICAL ILLUSTRATOR/RN: Currently in [facility] [place] in [facility] DME: Power wheelchair, manual wheelchair Income/BWC: [...] sev (more content not included)... Normal [facility] [employer] MR C-SPINE W/Oon 07-11-2024 MR C-SPINE [...] the right cerebellum. 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 MACRO: None [facility] MR T-SPINE W/Oon 07-11-2024 MR T-SPINE W/O [...] T5 and T2. MACRO: None Normal [employer] MR Thoracic spine NIGHAT champion 07-11-2024 EXAMINATION: MR T-SPINE W/O 07/10/2024 05:03 [...] of T11, T5 and T2. MACRO: None [facility] MR Thoracic spine WO contras tOrdered By: Del Leslie on 07-11-2024 [facility] Work Phone: No Panel Informationon 07-10 Radiology Study observation (narrative) [facility] BD BONE DENSITY SURVEYon BD BONE DENSITY SURVEY EXAMINATION: BD B ONE DENSITY SURVEY 07/01/2024 11:31 AM CLINICAL HISTORY: sacral insufficiency ASSOCIATED DIAGNOSIS: Sacral insufficiency fracture, initial encounter ADDITIONAL CLINICAL INFORMATION:Indicatio ns: History of Fracture (Adult) TREATMENTS: ORDERING PROVIDER: OTIS MEJIA [employer]OLOG[employer] NOTE: TECHNIQUE: Quantitative digital radiography for DEXA bone mineral assessment was performed using the M[employer]D ANTIQUES & CONSIGNMENTigQwite densitometer. Following are the results for your [...] online ([email or web address].uk/FRAX via a link on the BringMeTheNews screen. The model calculates the 10-yr probability of hip fracture or any major osteoporotic fracture (vertebral, hip, forearm, or humerus fracture), using clinical populations, and applies only to previously-untreated patients. (FRAX-friendly) T-scores, as calculated using the NativeX link, should be used in the model. [...] the expected range for age. Normal [employer] 36on 06-16-2024 36 Scheduled appointment Normal [facility] 36 Doug is calling in again wanting to rescheduled they can be reached at the office anytime before 3pm. Please advise and thank you Normal [facility] Addendum Noteon 06-16-2024 [employer] Authentication Interface Message Text Addended by: FAISAL SIMEON on: 06/16/2024 09:13 PM Modules accepted: Level of Service Normal [facility] 36on 06-15-2024 36 LM for Doug to call the office to discuss the pt Normal [facility] 36 Name of caller: Dax banks Contact phone number: [phone] Relationship to Patient: sanctuary Provider: chepe Practice: pain management Chief Complaint/Reason for Call: doug is calling in wanting to speak to the main office. Please advise and thank you Best time of day caller can be reached: any Patient advised that office/PCP has 24-48 business hours to return their call: Yes Normal [facility] Telephone Encounteron 2023 [employer] Authentication Interface Message Text RTC to pt, left voice mail. Vladimir Borden [facility] Marking Machine Operator [phone] Normal [facility] Patient Instructionson 06-13 [employer] Authentication Interface Message Text -Continue PT/OT -Bowel care: schedule bowel care once/day (either after breakfast or dinner) - using suppository and manual stimulation over commode chair will be more helpful than over bed . - Continue skin care - Follow [facility] service consult( we requested today ) for benefits eligibility - Bladder: We ordered today Urodynamic study for your bladder evaluation (to see your bladder status post spinal cord injury) Normal The [facility] Progress Noteson 06-13-2024 [employer] Authentication Interface Message Text Patient was identified by name and date of . Evelio Grey Normal The [facility] Progress Noteson 06-12-2024 [employer] Authentication Interface Message Text SPINAL CORD INJURY [...] following spinal surgery ~2 yrs ago in [place] . In 2019, pt had his first back surgery performed by [facility] which was an interbody fusion. 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 At that point, the hospital took the hardware out and did not replace it with the goal of treating the infection. 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 After the infection was treated, [facility] extended his fusion, decompressed the [...] 5 longterm so far. Currently SNF in [facility]. 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 DME: Power wheelchair, manual wheelchair Income/BWC: [...] 01/23/2022 (more content not included)... Normal [facility] Bacteria identified Cx Nom ( Bld)on 05-22-2024 Interpretation and review of laboratory results Normal [facility] Blood Collection Site: Left Arm [facility] Blood Collection Site: Left Antecubital [facility] CBC panel Auto (Bld)on 05-22 Erythrocyte distribution width (RBC) [Ratio] 15.1 % High 11.5 - 15.0 % [facility] Hematocrit (Bld) [Volume fraction] 38.4 % Low 40.0 - 52.0 % [facility] Hemoglobin (Bld) [Mass/Vol] 12.8 g/dL Low 13.0 - 18.0 g/dL [facility] Interpretation and review of laboratory results Abnormal [facility] MCH (RBC) [Entitic mass] 30.4 pg 26. 0 - 34.0 pg [facility] MCHC (RBC) [Mass/Vol] 33.3 % 30.5 - 36.0 % [facility] MCV (RBC) [Entitic vol] 91.2 fL 77.0 - 99.0 fL [facility] Platelet mean volume (Bld) [Entitic vol] 10.6 fL 9.0 - 12.7 fL [facility] Platelets (Bld) [#/Vol] 209 10*3/uL 140 - 440 10*3/uL [facility] RBC (Bld) [#/Vol] 4.21 10*6/uL Low 4.40 - 5.9 0 10*6/uL [facility] WBC (Bld) [#/Vol] 6.4 10*3/uL 3.6 - 10.7 10*3/uL [facility] Comprehensive metabolic 1998 panelon 05-22-2024 Albumin [Mass/Vol] 3.1 g/dL Low 3.5 - 5.0 g/dL [facility] ALP [Catalytic activity/Vol] 151 U/L High 38 - 126 U/L [facility] ALT [Catalytic activity/Vol] 22 U/L 0 - 49 U/L [facility] Anion gap [Moles/Vol] 5 mmol/L 3 - 13 mmol/L [facility] AST [Catalytic activity/Vol] 25 U/L 15 - 46 U/L [facility] Bilirubin [Mass/Vol] 0.6 mg/dL 0.2 - 1 .3 mg/dL [facility] Calcium [Mass/Vol] 8.4 mg/dL 8.4 - 10. 4 mg/dL [facility] Chloride [Moles/Vol] 107 mmol/L 98 - 10 7 mmol/L [facility] CO2 [Moles/Vol] 22 mmol/L 22 - 30 mmol/L [facility] Creatinine [Mass/Vol] 0.54 mg/dL Low 0.66 - 1.25 mg/dL [facility] GFR/1.73 sq M.predicted (S/P/Bld) [Vol rate/Area] - PINF [facility] Comment on above: Calculation based on the Chronic Kidney Disease Epidemiology Collaboration (CKD-EPI) equation refit without adjustment for race Glucose [Mass/Vol] 144 mg/dL High 70 - 100 mg/dL [facility] Interpretation and review of laboratory results Abnormal [facility] Potassium [Moles/Vol] 3.9 mmol/L 3.5 - 5.1 mmol/L [facility] Protein [Mass/Vol] 6.3 g/dL 6.3 - 8.2 g/dL [facility] Sodium [Moles/Vol] 135 mmol/L 135 - 145 mmol/L [facility] Urea nitrogen [Mass/Vol] 13 mg/dL 9 - 20 mg/dL [facility] Laboratory - Chemistry and C hemistry - challengeon 05-22-2024 Glucose [Mass/Vol] 177 mg/dL High 70 - 100 mg/dL [facility] Glucose [Mass/Vol] 325 mg/dL High 70 - 100 mg/dL [facility] Glucose [Mass/Vol] 133 mg/dL High 70 - 100 mg/dL [facility] Laboratory - Microbiology an d Antimicrobial susceptibilityon 05-22-2024 Bacteria identified Cx Nom (Bld) No growth at 5 days [facility] No Panel Informationon 05-22 Interpretation and review of laboratory results Abnormal [facility] Performed by: [facility], [address] [place] [address] CLIA ID: [id number] [facility] Interpretation and review of laboratory results Abnormal [facility] Performed by: [facility], [address] [place] [address] CLIA ID: [id number] [facility] Interpretation and review of laboratory results Abnormal [facility] Performed by: [facility], [address] [place] [address] CLIA ID: [id number] [facility] CBC panel Auto (Bld)on 05-21 Erythrocyte distribution width (RBC) [Ratio] 15.0 % 11.5 - 15.0 % [facility] Hematocrit (Bld) [Volume fraction] 37.5 % Low 40.0 - 52.0 % [facility] Hemoglobin (Bld) [Mass/Vol] 12.4 g/dL Low 13.0 - 18.0 g/dL [facility] Interpretation and review of laboratory results Abnormal [facility] MCH (RBC) [Entitic mass] 30.7 pg 26. 0 - 34.0 pg [facility] MCHC (RBC) [Mass/Vol] 33.1 % 30.5 - 36.0 % [facility] MCV (RBC) [Entitic vol] 92.8 fL 77.0 - 99.0 fL [facility] Platelet mean volume (Bld) [Entitic vol] 10.4 fL 9.0 - 12.7 fL [facility] Platelets (Bld) [#/Vol] 192 10*3/uL 140 - 440 10*3/uL [facility] RBC (Bld) [#/Vol] 4.04 10*6/uL Low 4.40 - 5.9 0 10*6/uL [facility] WBC (Bld) [#/Vol] 5.8 10*3/uL 3.6 - 10.7 10*3/uL [facility] Comprehensive metabolic 1998 panelon 05-21-2024 Albumin [Mass/Vol] 3.2 g/dL Low 3.5 - 5.0 g/dL [facility] ALP [Catalytic activity/Vol] 142 U/L High 38 - 126 U/L [facility] ALT [Catalytic activity/Vol] 21 U/L 0 - 49 U/L [facility] Anion gap [Moles/Vol] 8 mmol/L 3 - 13 mmol/L [facility] AST [Catalytic activity/Vol] 24 U/L 15 - 46 U/L [facility] Bilirubin [Mass/Vol] 0.5 mg/dL 0.2 - 1 .3 mg/dL [facility] Calcium [Mass/Vol] 8.5 mg/dL 8.4 - 10. 4 mg/dL [facility] Chloride [Moles/Vol] 109 mmol/L High 98 - 10 7 mmol/L [facility] CO2 [Moles/Vol] 18 mmol/L Low 22 - 30 mmol/L [facility] Creatinine [Mass/Vol] 0.46 mg/dL Low 0.66 - 1.25 mg/dL [facility] GFR/1.73 sq M.predicted (S/P/Bld) [Vol rate/Area] - PINF [facility] Comment on above: Calculation based on the Chronic Kidney Disease Epidemiology Collaboration (CKD-EPI) equation refit without adjustment for race Glucose [Mass/Vol] 157 mg/dL High 70 - 100 mg/dL [facility] Interpretation and review of laboratory results Abnormal [facility] Potassium [Moles/Vol] 3.9 mmol/L 3.5 - 5.1 mmol/L [facility] Protein [Mass/Vol] 6.2 g/dL Low 6.3 - 8.2 g/dL [facility] Sodium [Moles/Vol] 136 mmol/L 135 - 145 mmol/L [facility] Urea nitrogen [Mass/Vol] 11 mg/dL 9 - 20 mg/dL [facility] Laboratory - Chemistry and C hemistry - challengeon 05-21-2024 Glucose [Mass/Vol] 261 mg/dL High 70 - 100 mg/dL [facility] Glucose [Mass/Vol] 231 mg/dL High 70 - 100 mg/dL [facility] Glucose [Mass/Vol] 162 mg/dL High 70 - 100 mg/dL [facility] Glucose [Mass/Vol] 154 mg/dL High 70 - 100 mg/dL [facility] No Panel Informationon 05-21 Interpretation and review of laboratory results Abnormal [facility] Performed by: [facility], [address] [place] [id number] CLIA ID: [id number] [facility] Interpretation and review of laboratory results Abnormal [facility] Performed by: [facility], [address] [place] [address] CLIA ID: [id number] [facility] Interpretation and review of laboratory results Abnormal [facility] Performed by: [facility], [address] [place] [address] CLIA ID: [id number] [facility] Interpretation and review of laboratory results Abnormal [facility] Performed by: [facility], [address] [place] [address] CLIA ID: [id number] [facility] Bacteria identified Cx Nom ( U)Ordered By: Codie Tang on 05-20-2024 Interpretation and review of laboratory results Abnormal [facility] Bacteria identified Cx Nom ( U)on 05-20-2024 Interpretation and review of laboratory results Abnormal [facility] CBC panel Auto (Bld)on 05-20 Erythrocyte distribution width (RBC) [Ratio] 15.1 % High 11.5 - 15.0 % [facility] Hematocrit (Bld) [Volume fraction] 37.0 % Low 40.0 - 52.0 % [facility] Hemoglobin (Bld) [Mass/Vol] 12.2 g/dL Low 13.0 - 18.0 g/dL [facility] Interpretation and review of laboratory results Abnormal [facility] MCH (RBC) [Entitic mass] 29.9 pg 26. 0 - 34.0 pg [facility] MCHC (RBC) [Mass/Vol] 33.0 % 30.5 - 36.0 % [facility] MCV (RBC) [Entitic vol] 90.7 fL 77.0 - 99.0 fL [facility] Platelet mean volume (Bld) [Entitic vol] 10.4 fL 9.0 - 12.7 fL [facility] Platelets (Bld) [#/Vol] 197 10*3/uL 140 - 440 10*3/uL [facility] RBC (Bld) [#/Vol] 4.08 10*6/uL Low 4.40 - 5.9 0 10*6/uL [facility] WBC (Bld) [#/Vol] 5.5 10*3/uL 3.6 - 10.7 10*3/uL [facility] Comprehensive metabolic 1998 panelon 05-20-2024 Albumin [Mass/Vol] 3.2 g/dL Low 3.5 - 5.0 g/dL [facility] ALP [Catalytic activity/Vol] 153 U/L High 38 - 126 U/L [facility] ALT [Catalytic activity/Vol] 22 U/L 0 - 49 U/L [facility] Anion gap [Moles/Vol] 4 mmol/L 3 - 13 mmol/L [facility] AST [Catalytic activity/Vol] 23 U/L 15 - 46 U/L [facility] Bilirubin [Mass/Vol] 0.6 mg/dL 0.2 - 1 .3 mg/dL [facility] Calcium [Mass/Vol] 8.5 mg/dL 8.4 - 10. 4 mg/dL [facility] Chloride [Moles/Vol] 109 mmol/L High 98 - 10 7 mmol/L [facility] CO2 [Moles/Vol] 21 mmol/L Low 22 - 30 mmol/L [facility] Creatinine [Mass/Vol] 0.50 mg/dL Low 0.66 - 1.25 mg/dL [facility] GFR/1.73 sq M.predicted (S/P/Bld) [Vol rate/Area] - PINF [facility] Comment on above: Calculation based on the Chronic Kidney Disease Epidemiology Collaboration (CKD-EPI) equation refit without adjustment for race Glucose [Mass/Vol] 207 mg/dL High 70 - 100 mg/dL [facility] Interpretation and review of laboratory results Abnormal [facility] Potassium [Moles/Vol] 4.0 mmol/L 3.5 - 5.1 mmol/L [facility] Protein [Mass/Vol] 6.4 g/dL 6.3 - 8.2 g/dL [facility] Sodium [Moles/Vol] 134 mmol/L Low 135 - 145 mmol/L [facility] Urea nitrogen [Mass/Vol] 10 mg/dL 9 - 20 mg/dL [facility] Laboratory - Chemistry and C hemistry - challengeon 05-20-2024 Glucose [Mass/Vol] 233 mg/dL High 70 - 100 mg/dL [facility] Glucose [Mass/Vol] 315 mg/dL High 70 - 100 mg/dL [facility] Glucose [Mass/Vol] 255 mg/dL High 70 - 100 mg/dL [facility] Glucose [Mass/Vol] 275 mg/dL High 70 - 100 mg/dL [facility] Laboratory - Microbiology an d Antimicrobial susceptibilityOrdered By: Codie Tang on 05-20-2024 Bacteria identified Cx Nom (U) >100,000 CFU/mL Proteus mirabilis Abnormal [facility] Comment on above: For identification a nd/or sensitivity, refer to culture collected on: 05/18/2024 at 0016 ([id number]). Laboratory - Microbiology an d Antimicrobial susceptibilityon 05-20-2024 Bacteria identified Cx Nom (U) >100,000 CFU/mL Proteus mirabilis Abnormal [facility] Comment on above: This phenotype is singh ggestive of an ESBL-producing organism. Treatment with beta-lactam antibiotics other than carbapenems may not be effective. No Panel Informationon 05-20 Interpretation and review of laboratory results Abnormal [facility] by: [facility], [address] [place] [address] CLIA ID: [id number] [facility] Interpretation and review of laboratory results Abnormal [facility] Performed by: [facility] [facility], [address] [place] [address] CLIA ID: [id number] [facility] Interpretation and review of laboratory results Abnormal [facility] Performed by: [facility] [employer] [facility], [address] [place] [address] CLIA ID: [id number] [facility] Interpretation and review of laboratory results Abnormal [facility] Performed by: [facility], [address] [place] [address] CLIA ID: [id number] [facility] CBC panel Auto (Bld)on 05-19 Erythrocyte distribution width (RBC) [Ratio] 14.9 % 11.5 - 15.0 % [facility] Hematocrit (Bld) [Volume fraction] 35.8 % Low 40.0 - 52.0 % [facility] Hemoglobin (Bld) [Mass/Vol] 12.0 g/dL Low 13.0 - 18.0 g/dL [facility] Interpretation and review of laboratory results Abnormal [facility] MCH (RBC) [Entitic mass] 30.3 pg 26. 0 - 34.0 pg [facility] MCHC (RBC) [Mass/Vol] 33.5 % 30.5 - 36.0 % [facility] MCV (RBC) [Entitic vol] 90.4 fL 77.0 - 99.0 fL [facility] Platelet mean volume (Bld) [Entitic vol] 10.6 fL 9.0 - 12.7 fL [facility] Platelets (Bld) [#/Vol] 212 10*3/uL 140 - 440 10*3/uL [facility] RBC (Bld) [#/Vol] 3.96 10*6/uL Low 4.40 - 5.9 0 10*6/uL [facility] WBC (Bld) [#/Vol] 5.4 10*3/uL 3.6 - 10.7 10*3/uL [facility] Comprehensive metabolic 1998 panelOrdered By: Harman Dempsey on 05-19-2024 Albumin [Mass/Vol] 3.1 g/dL Low 3.5 - 5.0 g/dL [facility] ALP [Catalytic activity/Vol] 155 U/L High 38 - 126 U/L [facility] ALT [Catalytic activity/Vol] 19 U/L 0 - 49 U/L [facility] Anion gap [Moles/Vol] 3 mmol/L 3 - 13 mmol/L [facility] AST [Catalytic activity/Vol] 29 U/L 15 - 46 U/L [facility] Bilirubin [Mass/Vol] 0.6 mg/dL 0.2 - 1 .3 mg/dL [facility] Calcium [Mass/Vol] 8.4 mg/dL 8.4 - 10. 4 mg/dL [facility] Chloride [Moles/Vol] 110 mmol/L High 98 - 10 7 mmol/L [facility] CO2 [Moles/Vol] 21 mmol/L Low 22 - 30 mmol/L [facility] Creatinine [Mass/Vol] 0.44 mg/dL Low 0.66 - 1.25 mg/dL [facility] GFR/1.73 sq M.predicted (S/P/Bld) [Vol rate/Area] - PINF [facility] Comment on above: Calculation based on the Chronic Kidney Disease Epidemiology Collaboration (CKD-EPI) equation refit without adjustment for race Glucose [Mass/Vol] 212 mg/dL High 70 - 100 mg/dL [facility] Interpretation and review of laboratory results Abnormal [facility] Potassium [Moles/Vol] 3.4 mmol/L Low 3.5 - 5.1 mmol/L [facility] Protein [Mass/Vol] 6.3 g/dL 6.3 - 8.2 g/dL [facility] Sodium [Moles/Vol] 134 mmol/L Low 135 - 145 mmol/L [facility] Urea nitrogen [Mass/Vol] 11 mg/dL 9 - 20 mg/dL [facility] Laboratory - Chemistry and C hemistry - challengeon 05-19-2024 Glucose [Mass/Vol] 292 mg/dL High 70 - 100 mg/dL [facility] Glucose [Mass/Vol] 294 mg/dL High 70 - 100 mg/dL [facility] Glucose [Mass/Vol] 333 mg/dL High 70 - 100 mg/dL [facility] Glucose [Mass/Vol] 274 mg/dL High 70 - 100 mg/dL [facility] No Panel Informationon 05-19 Interpretation and review of laboratory results Abnormal [facility] Performed by: [facility], [address] [place] [address] CLIA ID: [id number] [facility] Interpretation and review of laboratory results Abnormal [facility] Performed by: [facility] [employer] [facility], [address] [place] [address] CLIA ID: [id number] [facility] Interpretation and review of laboratory results Abnormal [facility] Performed by: [facility] [employer] [facility], [address] [place] [address] CLIA ID: [id number] [facility] Interpretation and review of laboratory results Abnormal [facility] Performed by: [facility], [address] [place] [address] CLIA ID: [id number] [facility] Basic metabolic 1998 panelon 05-18-2024 Anion gap [Moles/Vol] 5 mmol/L 3 - 13 mmol/L [facility] Calcium [Mass/Vol] 8.6 mg/dL 8.4 - 10. 4 mg/dL [facility] Chloride [Moles/Vol] 108 mmol/L High 98 - 10 7 mmol/L [facility] CO2 [Moles/Vol] 22 mmol/L 22 - 30 mmol/L [facility] Creatinine [Mass/Vol] 0.64 mg/dL Low 0.66 - 1.25 mg/dL [facility] GFR/1.73 sq M.predicted (S/P/Bld) [Vol rate/Area] - PINF [facility] Comment on above: Calculation based on the Chronic Kidney Disease Epidemiology Collaboration (CKD-EPI) equation refit without adjustment for race Glucose [Mass/Vol] 143 mg/dL High 70 - 100 mg/dL [facility] Interpretation and review of laboratory results Abnormal [facility] Potassium [Moles/Vol] 4.5 mmol/L 3.5 - 5.1 mmol/L [facility] Sodium [Moles/Vol] 136 mmol/L 135 - 145 mmol/L [facility] Urea nitrogen [Mass/Vol] 13 mg/dL 9 - 20 mg/dL [facility] Slightly Hemolyzed. Interpret K+ with caution. [facility] CBC W Auto Differential pane l (Bld)Ordered By: Gayle Stafford on 05-18-2024 Basophils (Bld) [#/Vol] 0.1 10*3/uL 0.0 - 0.2 10*3/uL [facility] Basophils/100 WBC (Bld) 0.8 % 0.0 - 2.0 % [facility] Eosinophils (Bld) [#/Vol] 0.4 10*3/uL 0.0 - 0.5 10*3/uL [facility] Eosinophils/100 WBC (Bld) 5.4 % 0.0 - 6.0 % [facility] Erythrocyte distribution width (RBC) [Ratio] 15.6 % High 11.5 - 15.0 % [facility] Hematocrit (Bld) [Volume fraction] 38.7 % Low 40.0 - 52.0 % [facility] Hemoglobin (Bld) [Mass/Vol] 12.5 g/dL Low 13.0 - 18.0 g/dL [facility] Immature granulocytes (Bld) [#/Vol] 0.0 10*3/uL NINF - 0.1 10*3/uL [facility] Immature granulocytes/100 WBC (Bld) 0.4 % 0.0 - 2.0 % [facility] Interpretation and review of laboratory results Abnormal [facility] Lymphocytes (Bld) [#/Vol] 2.2 10*3/uL 1.0 - 4.3 10*3/uL [facility] Lymphocytes/100 WBC (Bld) 28.0 % 15.0 - 45.0 % [facility] MCH (RBC) [Entitic mass] 30.3 pg 26. 0 - 34.0 pg [facility] MCHC (RBC) [Mass/Vol] 32.3 % 30.5 - 36.0 % [facility] MCV (RBC) [Entitic vol] 93.7 fL 77.0 - 99.0 fL [facility] Monocytes (Bld) [#/Vol] 0.7 10*3/uL 0.0 - 0.9 10*3/uL [facility] Monocytes/100 WBC (Bld) 9.6 % 5.0 - 13.0 % [facility] Neutrophils (Bld) [#/Vol] 4.3 10*3/uL 1.8 - 7.5 10*3/uL [facility] Neutrophils/100 WBC (Bld) 55.8 % 38.0 - 82.0 % [facility] Nucleated RBC/100 WBC (Bld) [Ratio] 0.0 % [facility] Platelet mean volume (Bld) [Entitic vol] 10.9 fL 9.0 - 12.7 fL [facility] Platelets (Bld) [#/Vol] 222 10*3/uL 140 - 440 10*3/uL [facility] RBC (Bld) [#/Vol] 4.13 10*6/uL Low 4.40 - 5.9 0 10*6/uL [facility] WBC (Bld) [#/Vol] 7.7 10*3/uL 3.6 - 10.7 10*3/uL [facility] Laboratory - Chemistry and C hemistry - challengeon 05-18-2024 Glucose [Mass/Vol] 140 mg/dL High 70 - 100 mg/dL [facility] No Panel Informationon 05-18 Interpretation and review of laboratory results Abnormal [facility] Performed by: [facility], [address] [place], [place] [address] [address] CLIA ID: [id number] [facility] Urinalysis complete panel (U )Ordered By: Franchesca Garnica on 05-18-2024 Bacteria LM.HPF (Urine sed) [#/Area] Many Abnormal Negative /HPF [facility] Bilirubin Ql (U) Negative Negative mg/dL [facility] Clarity (U) Turbid Abnormal Clear [facility] Color (U) Yellow Lt. Yellow [facility] Epithelial cells.squamous LM.HPF (Urine sed) [#/Area] Negative [facility] h Glucose Ql (U) Normal Normal (<70) mg/dL [facility] Hemoglobin Ql (U) 0.5 mg/dL Abnormal Negative [facility] ealth Hyaline casts Auto (Urine sed) [#/Area] Negative Negative /LPF [facility] Interpretation and review of laboratory results Abnormal [facility] Ketones (U) [Mass/Vol] Negative Negat mary grace mg/dL [facility] Leukocyte clumps LM.HPF (Urine sed) [#/Area] Many Abnormal Negative /HPF [facility] Leukocyte esterase Test strip Ql (U) 500 Abnormal Negative Da/uL [facility] Mucus LM.HPF (Urine sed) [#/Area] Few Negative /LPF [facility] Nitrite Ql (U) Positive Abnormal Negative [facility] th pH (U) 6.5 [pH] 5.0 - 8.0 pH [facility] Protein (U) [Mass/Vol] 50 mg/dL Abnormal Negative [facility] RBC LM.HPF (Urine sed) [#/Area] 51-100 Abnormal [facility] Specific gravity (U) [Rel density] 1.015 1.005 - 1.030 [facility] Urobilinogen (U) [Mass/Vol] Normal Normal (0-1) mg/dL [facility] WBC LM.HPF (Urine sed) [#/Area] /[HPF] Abnormal [facility] Basic metabolic 1998 panelon 05-17-2024 Anion gap [Moles/Vol] 6 mmol/L 3 - 13 mmol/L [facility] Calcium [Mass/Vol] 8.7 mg/dL 8.4 - 10. 4 mg/dL [facility] Chloride [Moles/Vol] 109 mmol/L High 98 - 10 7 mmol/L [facility] CO2 [Moles/Vol] 20 mmol/L Low 22 - 30 mmol/L [facility] Creatinine [Mass/Vol] 0.68 mg/dL 0.66 - 1.25 mg/dL [facility] GFR/1.73 sq M.predicted (S/P/Bld) [Vol rate/Area] - PINF [facility] Comment on above: Calculation based on the Chronic Kidney Disease Epidemiology Collaboration (CKD-EPI) equation refit without adjustment for race Glucose [Mass/Vol] 172 mg/dL High 70 - 100 mg/dL [facility] Interpretation and review of laboratory results Abnormal [facility] Potassium [Moles/Vol] 4.4 mmol/L 3.5 - 5.1 mmol/L [facility] Sodium [Moles/Vol] 136 mmol/L 135 - 145 mmol/L [facility] Urea nitrogen [Mass/Vol] 12 mg/dL 9 - 20 mg/dL [facility] CBC W Auto Differential pane l (Bld)Ordered By: Janice Carey on 05-17-2024 Basophils (Bld) [#/Vol] 0.0 10*3/uL 0.0 - 0.2 10*3/uL [facility] Basophils/100 WBC (Bld) 0.8 % 0.0 - 2.0 % [facility] Eosinophils (Bld) [#/Vol] 0.3 10*3/uL 0.0 - 0.5 10*3/uL [facility] Eosinophils/100 WBC (Bld) 7.4 % High 0.0 - 6.0 % [facility] Erythrocyte distribution width (RBC) [Ratio] 16.8 % High 11.5 - 15.0 % [facility] Hematocrit (Bld) [Volume fraction] 60.0 % High 40.0 - 52.0 % [facility] Hemoglobin (Bld) [Mass/Vol] 19.6 g/dL High 13.0 - 18.0 g/dL [facility] Immature granulocytes (Bld) [#/Vol] 0.0 10*3/uL NINF - 0.1 10*3/uL [facility] Immature granulocytes/100 WBC (Bld) 0.3 % 0.0 - 2.0 % [facility] Interpretation and review of laboratory results Abnormal [facility] Lymphocytes (Bld) [#/Vol] 1.0 10*3/uL 1.0 - 4.3 10*3/uL [facility] Lymphocytes/100 WBC (Bld) 26.9 % 15.0 - 45.0 % [facility] MCH (RBC) [Entitic mass] 30.1 pg 26. 0 - 34.0 pg [facility] MCHC (RBC) [Mass/Vol] 32.7 % 30.5 - 36.0 % [facility] MCV (RBC) [Entitic vol] 92.2 fL 77.0 - 99.0 fL [facility] Monocytes (Bld) [#/Vol] 0.2 10*3/uL 0.0 - 0.9 10*3/uL [facility] Monocytes/100 WBC (Bld) 6.8 % 5.0 - 13.0 % [facility] Neutrophils (Bld) [#/Vol] 2.0 10*3/uL 1.8 - 7.5 10*3/uL [facility] Neutrophils/100 WBC (Bld) 57.8 % 38.0 - 82.0 % [facility] Nucleated RBC/100 WBC (Bld) [Ratio] 0.0 % [facility] Platelet mean volume (Bld) [Entitic vol] 9.9 fL 9.0 - 12.7 fL [facility] Platelets (Bld) [#/Vol] 105 10*3/uL Low 140 - 440 10*3/uL [facility] RBC (Bld) [#/Vol] 6.51 10*6/uL High 4.40 - 5.9 0 10*6/uL [facility] WBC (Bld) [#/Vol] 3.5 10*3/uL Low 3.6 - 10.7 10*3/uL [facility] Laboratory - Chemistry and C hemistry - challengeon 05-17-2024 Lactate [Moles/Vol] 1.4 mmol/L 0.7 - 2. 0 mmol/L [facility] No Panel Informationon 05-17 Interpretation and review of laboratory results Normal [facility] Urinalysis complete panel (U )Ordered By: Madison Novak on 05-17-2024 Bacteria LM.HPF (Urine sed) [#/Area] Many Abnormal Negative /HPF [facility] Bilirubin Ql (U) Negative Negative mg/dL [facility] Clarity (U) Turbid Abnormal Clear [facility] Color (U) Yellow Lt. Yellow [facility] Epithelial cells.squamous LM.HPF (Urine sed) [#/Area] Negative [facility] Glucose Ql (U) Normal Normal (<70) mg/dL [facility] Hemoglobin Ql (U) 1.0 mg/dL Abnormal [facility] Interpretation and review of laboratory results Abnormal [facility] Ketones (U) [Mass/Vol] Negative Negat mary grace mg/dL [facility] Leukocyte esterase Test strip Ql (U) 500 Abnormal Negative Da/uL [facility] Mucus LM.HPF (Urine sed) [#/Area] Few Negative /LPF [facility] Nitrite Ql (U) Positive Abnormal Negative [facility] th pH (U) 8.0 [pH] 5.0 - 8.0 pH [facility] Protein (U) [Mass/Vol] 100 mg/dL Abnormal Negative [facility] RBC LM.HPF (Urine sed) [#/Area] 11-25 Abnormal [facility] Specific gravity (U) [Rel density] 1.016 1.005 - 1.030 [facility] Triple phosphate crystals LM.HPF (Urine sed) [#/Area] Few Abnormal Negative /HPF [facility] Urobilinogen (U) [Mass/Vol] Normal Normal (0-1) mg/dL [facility] WBC LM.HPF (Urine sed) [#/Area] /[HPF] Abnormal [facility] Progress Noteson 05-15-2024 [employer] Authentication Interface Message Text HISTORY OF PRESENT ILLNESS ----- Inventory Administrator: not needed - patient preferred language is Bahraini. HIPAA: Verbal permission granted from patient to discuss case, including protected health information, in front of family / friends in room at the time of the evaluation. Anmol Reynolds is a very pleasant 63 year old male here as new patient for a second opinion of MRI results. In 2019, pt had his first back surgery performed by [facility] which was an interbody fusion. 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 At that point, the hospital took the hardware out and did not replace it with the goal of treating the infection. 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 After the infection was treated, [facility] extended his fusion, decompressed the [...] Resource Strain: Low Risk (04/24/2023) Received from [facility] Overall Financial Resource Strain (CARDIA) Difficulty of Paying Living Expenses: Not hard at all Food Insecurity: No Food Insecurity (05/05/2024) Received from [facility] Hunger Vital Sign Worried About Running Out of Food in the Last Year: Never true Ran Out of Food in the Last Year: Never true Transportation Needs: No Transportation Needs (05/05/2024) [facility] - Transportation Lack of Transportation (Medical): No Lack of Transportation (Non-Medical): No Intimate Partner Violence: Not At Risk (05/05/2024) Received from [facility] Humiliation, Afraid, Rape, and Kick questionnaire Fear [...] heal (more content not included)... Normal [employer] XR SACRUM-COCCYX 3 VIEWSon 0 05-12-2024 [...] 04:02 PM CLINICAL HISTORY: upright scoli - [employer] DIAGNOSIS: Sacral insufficiency fracture, initial encounter ORDERING PROVIDER: [employer]IS [employer] NOTE: Best possible - Upright in chair, right lateral due to limitations of room layout and equipment COMPARISON: None FINDINGS: Dextroscoliosis of thoracic spine is noted. Luevano angle measures 10.0 degrees. Deforest is at T8 level. Fusion of lumbar [...] insufficiency fracture, initial encounter ORDERING PROVIDER: BERNA EKERS [employer] NOTE: COMPARISON: None Findings Osteopenia of [...] considered. Ureteral stents are noted. MACRO: None [employer] XR Sacrum and Coccyx ViewsOr dered By: Juan William on 05-12-2024 [employer] Work Phone: XR Thoracic and lumbar spine 2 Views for scoliosison 05-12-2024 EXAMINATION: XR SCOLIOSIS PA + LAT 2 OR 3 VIEWS 05/11/2024 04:02 PM CLINICAL HISTORY: upright scoli - [employer] DIAGNOSIS: Sacral insufficiency fracture, initial encounter ORDERING PROVIDER: [employer] NOTE: Best possible - Upright in chair, right lateral due to limitations of room layout and equipment COMPARISON: None FINDINGS: Dextroscoliosis of thoracic spine is noted. Luevano angle measures 10.0 degrees. Deforest is at T8 level. Fusion of lumbar [...] 04:02 PM CLINICAL HISTORY: upright scoli - [employer] DIAGNOSIS: Sacral insufficiency fracture, initial encounter ORDERING PROVIDER: [employer] NOTE: Best possible - Upright in chair, right lateral due to limitations of room layout and equipment COMPARISON: None FINDINGS: Dextroscoliosis of thoracic spine is noted. Luevano angle measures 10.0 degrees. Deforest is at T8 level. Fusion of lumbar [...] Coccyx Viewson 05-11-2024 Radiology Study observation (narrative) [facility] XR Thoracic and lumbar spine 2 Views for scoliosison 05-11-2024 Radiology Study observation (narrative) [facility] Telephone Encounteron 2023 [employer] Authentication Interface Message Text Pt calling requesting provider to follow up regarding MRI. Pt was unable to provide telephone, address or SSN. No information was provided at this time. Normal [facility] Basic metabolic 1998 panelon 05-06-2024 Anion gap [Moles/Vol] 8 mmol/L 3 - 13 mmol/L [facility] Calcium [Mass/Vol] 8.4 mg/dL 8.4 - 10. 4 mg/dL [facility] Chloride [Moles/Vol] 105 mmol/L 98 - 10 7 mmol/L [facility] CO2 [Moles/Vol] 23 mmol/L 22 - 30 mmol/L [facility] Creatinine [Mass/Vol] 0.62 mg/dL Low 0.66 - 1.25 mg/dL [facility] GFR/1.73 sq M.predicted (S/P/Bld) [Vol rate/Area] - PINF [facility] Comment on above: Calculation based on the Chronic Kidney Disease Epidemiology Collaboration (CKD-EPI) equation refit without adjustment for race Glucose [Mass/Vol] 416 mg/dL High 70 - 100 mg/dL [facility] Interpretation and review of laboratory results Abnormal [facility] Potassium [Moles/Vol] 4.1 mmol/L 3.5 - 5.1 mmol/L [facility] Sodium [Moles/Vol] 136 mmol/L 135 - 145 mmol/L [facility] Urea nitrogen [Mass/Vol] 14 mg/dL 9 - 20 mg/dL [facility] CBC panel Auto (Bld)on 08-02 -2024 Erythrocyte distribution width (RBC) [Ratio] 14.5 % 11.5 - 15.0 % [facility] Hematocrit (Bld) [Volume fraction] 36.0 % Low 40.0 - 52.0 % [facility] Hemoglobin (Bld) [Mass/Vol] 12.1 g/dL Low 13.0 - 18.0 g/dL [facility] Interpretation and review of laboratory results Abnormal [facility] MCH (RBC) [Entitic mass] 30.3 pg 26. 0 - 34.0 pg [facility] MCHC (RBC) [Mass/Vol] 33.6 % 30.5 - 36.0 % [facility] MCV (RBC) [Entitic vol] 90.2 fL 77.0 - 99.0 fL [facility] Platelet mean volume (Bld) [Entitic vol] 10.8 fL 9.0 - 12.7 fL [facility] Platelets (Bld) [#/Vol] 273 10*3/uL 140 - 440 10*3/uL [facility] RBC (Bld) [#/Vol] 3.99 10*6/uL Low 4.40 - 5.9 0 10*6/uL [facility] WBC (Bld) [#/Vol] 6.8 10*3/uL 3.6 - 10.7 10*3/uL [facility] Laboratory - Chemistry and C hemistry - challengeon 05-06-2024 Glucose [Mass/Vol] 260 mg/dL High 70 - 100 mg/dL [facility] Glucose [Mass/Vol] 428 mg/dL High 70 - 100 mg/dL [facility] Glucose [Mass/Vol] 359 mg/dL High 70 - 100 mg/dL [facility] No Panel Informationon 05-06 Interpretation and review of laboratory results Abnormal [facility] Performed by: [facility], [address] [place], [place] [id number] CLIA ID: [id number] [facility] Interpretation and review of laboratory results Abnormal [facility] Performed by: [facility], [address] [place] [id number] CLIA ID: [id number] [facility] Interpretation and review of laboratory results Abnormal [facility] Performed by: [facility], [address] [place] [address] CLIA ID: [id number] [facility] [employer] [facility] [employer] Laboratory - Chemistry and C hemistry - challengeon 05-05-2024 Glucose [Mass/Vol] 176 mg/dL High 70 - 100 mg/dL [facility] [employer] Glucose [Mass/Vol] 166 mg/dL High 70 - 100 mg/dL [facility] [employer] Glucose [Mass/Vol] 236 mg/dL High 70 - 100 mg/dL [facility] [employer] No Panel Informationon 05-05 Interpretation and review of laboratory results Abnormal [facility] [employer] Performed by: [employer] [facility], [address] [place], [place] [id number] CLIA ID: [id number] [facility] [employer] [facility] [employer] There is no interpretation needed for this exam. IMAGING Interpretation and review of laboratory results Abnormal [facility] [employer] Performed by: [employer] [facility], [address] [place] [address] CLIA ID: [id number] [facility] [employer] [facility] [employer] Interpretation and review of laboratory results Abnormal [facility] [employer] Performed by: [employer] [facility], [address] [place] [address] CLIA ID: [id number] [facility] [employer] [facility] [employer] Telephone Encounteron 2023 [employer] Authentication Interface Message Text Called pt and discussed his MRI L spine results. He has SCI rehab follow up scheduled. Recommended Spine Surgery opinion. No change in clinical condition from last visit. Vaishali Pierre, DO Normal [employer] Authentication Interface Message Text Called pt again. Staff at the SNF stated he was unable to come to the phone and asked for call back later in the day. Vaishali Pierre, DO Normal [employer] Telephone Encounteron 2023 [employer] Authentication Interface Message Text Called pt and reached staff, but he was unable to come to the phone. Will try again tomorrow. Vaishali Pierre, DO Normal [employer] CBC W Auto Differential pane l (Bld)on 04-20-2024 Erythrocyte distribution width (RBC) [Ratio] 14.8 % 11.5 - 15.0 % [facility] [employer] Hematocrit (Bld) [Volume fraction] 34.8 % Low 40.0 - 52.0 % [facility] [employer] Hemoglobin (Bld) [Mass/Vol] 11.3 g/dL Low 13.0 - 18.0 g/dL [facility] [employer] Interpretation and review of laboratory results Abnormal [facility] IPF 7 [facility] MCH (RBC) [Entitic mass] 30.5 pg 26. 0 - 34.0 pg [facility] MCHC (RBC) [Mass/Vol] 32.5 % 30.5 - 36.0 % [facility] MCV (RBC) [Entitic vol] 94.1 fL 77.0 - 99.0 fL [facility] Platelet mean volume (Bld) [Entitic vol] 11.6 fL 9.0 - 12.7 fL [facility] Platelets (Bld) [#/Vol] 121 10*3/uL Low 140 - 440 10*3/uL [facility] RBC (Bld) [#/Vol] 3.70 10*6/uL Low 4.40 - 5.9 0 10*6/uL [facility] WBC (Bld) [#/Vol] 6.4 10*3/uL 3.6 - 10.7 10*3/uL [facility] Comprehensive metabolic 1998 panelon 04-20-2024 Albumin [Mass/Vol] 2.5 g/dL Low 3.5 - 5.0 g/dL [facility] ALP [Catalytic activity/Vol] 94 U/L 38 - 126 U/L [facility] ALT [Catalytic activity/Vol] 15 U/L 0 - 49 U/L [facility] Anion gap [Moles/Vol] 6 mmol/L 3 - 13 mmol/L [facility] AST [Catalytic activity/Vol] 19 U/L 15 - 46 U/L [facility] Bilirubin [Mass/Vol] 0.4 mg/dL 0.2 - 1 .3 mg/dL [facility] Calcium [Mass/Vol] 7.6 mg/dL Low 8.4 - 10. 4 mg/dL [facility] Chloride [Moles/Vol] 108 mmol/L High 98 - 10 7 mmol/L [facility] CO2 [Moles/Vol] 23 mmol/L 22 - 30 mmol/L [facility] Creatinine [Mass/Vol] 0.44 mg/dL Low 0.66 - 1.25 mg/dL [facility] GFR/1.73 sq M.predicted MDRD (S/P/Bld) [Vol rate/Area] - PINF [facility] Glucose [Mass/Vol] 284 mg/dL High 70 - 100 mg/dL [facility] Interpretation and review of laboratory results Abnormal [facility] Potassium [Moles/Vol] 3.8 mmol/L 3.5 - 5.1 mmol/L [facility] Protein [Mass/Vol] 5.6 g/dL Low 6.3 - 8.2 g/dL [facility] Sodium [Moles/Vol] 138 mmol/L 135 - 145 mmol/L [facility] Urea nitrogen [Mass/Vol] 14 mg/dL 9 - 20 mg/dL [facility] Laboratory - Chemistry and C hemistry - challengeon 04-20-2024 Glucose [Mass/Vol] 282 mg/dL High 70 - 100 mg/dL [facility] Glucose [Mass/Vol] 398 mg/dL High 70 - 100 mg/dL [facility] Glucose [Mass/Vol] 323 mg/dL High 70 - 100 mg/dL [facility] Magnesium [Mass/Vol] 1.8 mg/dL 1.6 - 2 .3 mg/dL [facility] Laboratory - Hematology and Cell countson 04-20-2024 Eosinophils (Bld) [#/Vol] 0.3 10*3/uL 0.0 - 0.5 10*3/uL [facility] Eosinophils/100 WBC (Bld) 5 % 0 - 6 % [facility] Lymphocytes (Bld) [#/Vol] 2.0 10*3/uL 1.0 - 4.3 10*3/uL [facility] Lymphocytes/100 WBC (Bld) 32 % 15 - 45 % [facility] Monocytes (Bld) [#/Vol] 0.6 10*3/uL 0.0 - 0.9 10*3/uL [facility] Monocytes/100 WBC (Bld) 10 % 5 - 13 % [facility] Neutrophils (Bld) [#/Vol] 3.4 10*3/uL 1.8 - 7.5 10*3/uL [facility] RBC morphology finding Nom (Bld) Normal [facility] Segmented neutrophils/100 WBC (Bld) 53 % 38 - 82 % [facility] Laboratory - Microbiology an d Antimicrobial susceptibilityon 04-20-2024 SARS-CoV-2 (COVID-19) Ag IA.rapid Ql (Resp) Negative Negative [facility] No Panel Informationon 04-20 Interpretation and review of laboratory results Abnormal [facility] CV EPIPHANY [facility] RADIOLOGY SYSTEM [facility] RADIOLOGY SYSTEM [facility] Interpretation and review of laboratory results Abnormal [facility] Radiology Study observation (narrative) [facility] Interpretation and review of laboratory results Abnormal [facility] Eosinophils Manual 5 High 0 - 1 [facility] Interpretation and review of laboratory results Abnormal [facility] Lymphocytes Manual 32 [facility] Monocytes Manual [address] [facility] alth Neutrophils Manual 53 [facility] Interpretation and review of laboratory results Normal [facility] No Panel InformationOrdered By: Jax Wiggins on 04-20-2024 P [place] [address] [facility] [employer] Work Phone: [phone] RI Interval [address] [facility] [employer] Work Phone: [phone] QRS [place] [address] [facility] [employer] Work Phone: [phone] QRSD Interval [address] [facility] [employer] Work Phone: QT Interval [address] [facility] [employer] Work Phone: [phone] QTC Interval [address] [facility] [employer] Work Phone: T Wave [place] [address] [facility] [employer] Work Phone: [phone] [facility] [employer] Work Phone: [phone] No Panel InformationOrdered By: Marie Howard on 04-20-[address] [facility] [employer] Work Phone: Phosphate [Moles/Vol]on 04-04 Phosphate [Mass/Vol] 2.8 mg/dL 2.5 - 4 .5 mg/dL [facility] SARS-CoV-2 (COVID-19) Ag IA. rapid Ql (Resp)on 04-20-2024 Interpretation and review of laboratory results Normal [facility] Vital signsOrdered By: Seth Wiggins on 04-20-2024 Heart rate 75 /min bpm [facility] [employer] Work Phone: CBC W Auto Differential pane l (Bld)on 04-19-2024 Erythrocyte distribution width (RBC) [Ratio] 14.8 % 11.5 - 15.0 % [facility] Hematocrit (Bld) [Volume fraction] 35.0 % Low 40.0 - 52.0 % [facility] Hemoglobin (Bld) [Mass/Vol] 11.6 g/dL Low 13.0 - 18.0 g/dL [facility] IPF 8 [facility] MCH (RBC) [Entitic mass] 30.6 pg 26. 0 - 34.0 pg [facility] MCHC (RBC) [Mass/Vol] 33.1 % 30.5 - 36.0 % [facility] MCV (RBC) [Entitic vol] 92.3 fL 77.0 - 99.0 fL [facility] Platelet mean volume (Bld) [Entitic vol] 11.6 fL 9.0 - 12.7 fL [facility] Platelets (Bld) [#/Vol] 88 10*3/uL Low 140 - 440 10*3/uL [facility] RBC (Bld) [#/Vol] 3.79 10*6/uL Low 4.40 - 5.9 0 10*6/uL [facility] WBC (Bld) [#/Vol] 9.2 10*3/uL 3.6 - 10.7 10*3/uL [facility] Comprehensive metabolic 1998 panelon 04-19-2024 Albumin [Mass/Vol] 2.7 g/dL Low 3.5 - 5.0 g/dL [facility] ALP [Catalytic activity/Vol] 119 U/L 38 - 126 U/L [facility] ALT [Catalytic activity/Vol] 16 U/L 0 - 49 U/L [facility] Anion gap [Moles/Vol] 5 mmol/L 3 - 13 mmol/L [facility] AST [Catalytic activity/Vol] 19 U/L 15 - 46 U/L [facility] Bilirubin [Mass/Vol] 0.6 mg/dL 0.2 - 1 .3 mg/dL [facility] Calcium [Mass/Vol] 7.9 mg/dL Low 8.4 - 10. 4 mg/dL [facility] Chloride [Moles/Vol] 107 mmol/L 98 - 10 7 mmol/L [facility] CO2 [Moles/Vol] 26 mmol/L 22 - 30 mmol/L [facility] Creatinine [Mass/Vol] 0.44 mg/dL Low 0.66 - 1.25 mg/dL [facility] GFR/1.73 sq M.predicted MDRD (S/P/Bld) [Vol rate/Area] - PINF [facility] Glucose [Mass/Vol] 153 mg/dL High 70 - 100 mg/dL [facility] Interpretation and review of laboratory results Abnormal [facility] Potassium [Moles/Vol] 3.5 mmol/L 3.5 - 5.1 mmol/L [facility] Protein [Mass/Vol] 6.0 g/dL Low 6.3 - 8.2 g/dL [facility] Sodium [Moles/Vol] 138 mmol/L 135 - 145 mmol/L [facility] Urea nitrogen [Mass/Vol] 14 mg/dL 9 - 20 mg/dL [facility] Laboratory - Chemistry and C hemistry - challengeon 04-19-2024 Glucose [Mass/Vol] 305 mg/dL High 70 - 100 mg/dL [facility] Glucose [Mass/Vol] 232 mg/dL High 70 - 100 mg/dL [facility] Glucose [Mass/Vol] 163 mg/dL High 70 - 100 mg/dL [facility] Glucose [Mass/Vol] 155 mg/dL High 70 - 100 mg/dL [facility] Magnesium [Mass/Vol] 1.8 mg/dL 1.6 - 2 .3 mg/dL [facility] Laboratory - Hematology and Cell countson 04-19-2024 Band form neutrophils (Bld) [#/Vol] 0.1 10*3/uL High NINF - 0.0 10*3/uL [facility] Band form neutrophils/100 WBC (Bld) 1 % High NINF - 0 % [facility] Basophils (Bld) [#/Vol] 0.1 10*3/uL 0.0 - 0.2 10*3/uL [facility] Basophils/100 WBC (Bld) 1 % 0 - 2 % [facility] Eosinophils (Bld) [#/Vol] 0.4 10*3/uL 0.0 - 0.5 10*3/uL [facility] Eosinophils/100 WBC (Bld) 4 % 0 - 6 % [facility] Lymphocytes (Bld) [#/Vol] 1.2 10*3/uL 1.0 - 4.3 10*3/uL [facility] Lymphocytes/100 WBC (Bld) 13 % Low 15 - 45 % [facility] Monocytes (Bld) [#/Vol] 0.7 10*3/uL 0.0 - 0.9 10*3/uL [facility] Monocytes/100 WBC (Bld) 8 % 5 - 13 % [facility] Neutrophils (Bld) [#/Vol] 6.7 10*3/uL 1.8 - 7.5 10*3/uL [facility] RBC morphology finding Nom (Bld) abnormal [facility] Segmented neutrophils/100 WBC (Bld) 72 % 38 - 82 % [facility] Stomatocytes LM Ql (Bld) Slight Abnormal (none) [facility] Variant lymphocytes (Bld) [#/Vol] 0.1 10*3/uL High NINF - 0.0 10*3/uL [facility] Variant lymphocytes/100 WBC (Bld) 1 % High NINF - 0 % [facility] No Panel Informationon 04-19 Interpretation and review of laboratory results Abnormal [facility] Interpretation and review of laboratory results Abnormal [facility] Interpretation and review of laboratory results Abnormal [facility] Interpretation and review of laboratory results Abnormal [facility] Atypical Lymphocytes Manual 1 [facility] Bands Manual 1 [facility] Basophils Manual [address] [facility] Eosinophils Manual 4 High 0 - 1 [facility] Interpretation and review of laboratory results Abnormal [facility] Lymphocytes Manual 13 [facility] Monocytes Manual [address] [facility] Neutrophils Manual 71 [facility] Interpretation and review of laboratory results Normal [facility] Phosphate [Moles/Vol]on 04-04 Phosphate [Mass/Vol] 3.2 mg/dL 2.5 - 4 .5 mg/dL [facility] Bacteria identified Cx Nom ( Bld)on 04-18-2024 Interpretation and review of laboratory results Abnormal [facility] Bacteria identified Cx Nom ( Bld)Ordered By: Yani Martínez on 04-18-2024 Interpretation and review of laboratory results Abnormal [facility] CBC W Auto Differential pane l (Bld)Ordered By: Gricelda Eduardo on 04-18-2024 Erythrocyte distribution width (RBC) [Ratio] 15.0 % 11.5 - 15.0 % [facility] Hematocrit (Bld) [Volume fraction] 36.6 % Low 40.0 - 52.0 % [facility] Hemoglobin (Bld) [Mass/Vol] 12.1 g/dL Low 13.0 - 18.0 g/dL [facility] Interpretation and review of laboratory results Abnormal [facility] IPF 9 [facility] MCH (RBC) [Entitic mass] 30.6 pg 26. 0 - 34.0 pg [facility] MCHC (RBC) [Mass/Vol] 33.1 % 30.5 - 36.0 % [facility] MCV (RBC) [Entitic vol] 92.7 fL 77.0 - 99.0 fL [facility] Platelet mean volume (Bld) [Entitic vol] 11.7 fL 9.0 - 12.7 fL [facility] Platelets (Bld) [#/Vol] 79 10*3/uL Low 140 - 440 10*3/uL [facility] RBC (Bld) [#/Vol] 3.95 10*6/uL Low 4.40 - 5.9 0 10*6/uL [facility] WBC (Bld) [#/Vol] 8.4 10*3/uL 3.6 - 10.7 10*3/uL [facility] Comprehensive metabolic 1998 panelon 04-18-2024 Albumin [Mass/Vol] 2.9 g/dL Low 3.5 - 5.0 g/dL [facility] ALP [Catalytic activity/Vol] 123 U/L 38 - 126 U/L [facility] ALT [Catalytic activity/Vol] 18 U/L 0 - 49 U/L [facility] Anion gap [Moles/Vol] 7 mmol/L 3 - 13 mmol/L [facility] AST [Catalytic activity/Vol] 18 U/L 15 - 46 U/L [facility] Bilirubin [Mass/Vol] 0.8 mg/dL 0.2 - 1 .3 mg/dL [facility] Calcium [Mass/Vol] 7.8 mg/dL Low 8.4 - 10. 4 mg/dL [facility] Chloride [Moles/Vol] 105 mmol/L 98 - 10 7 mmol/L [facility] CO2 [Moles/Vol] 27 mmol/L 22 - 30 mmol/L [facility] Creatinine [Mass/Vol] 0.51 mg/dL Low 0.66 - 1.25 mg/dL [facility] GFR/1.73 sq M.predicted MDRD (S/P/Bld) [Vol rate/Area] - PINF [facility] Glucose [Mass/Vol] 74 mg/dL 70 - 100 mg/dL [facility] Potassium [Moles/Vol] 3.1 mmol/L Low 3.5 - 5.1 mmol/L [facility] Protein [Mass/Vol] 6.0 g/dL Low 6.3 - 8.2 g/dL [facility] Sodium [Moles/Vol] 140 mmol/L 135 - 145 mmol/L [facility] Urea nitrogen [Mass/Vol] 15 mg/dL 9 - 20 mg/dL [facility] Laboratory - Chemistry and C hemistry - challengeon 04-18-2024 Glucose [Mass/Vol] 264 mg/dL High 70 - 100 mg/dL [facility] Glucose [Mass/Vol] 135 mg/dL High 70 - 100 mg/dL [facility] Glucose [Mass/Vol] 144 mg/dL High 70 - 100 mg/dL [facility] Magnesium [Mass/Vol] 1.5 mg/dL Low 1.6 - 2 .3 mg/dL [facility] Glucose [Mass/Vol] 78 mg/dL 70 - 100 mg/dL [facility] Laboratory - Microbiology an d Antimicrobial susceptibilityon 04-18-2024 Bacteria identified Cx Nom (Bld) Morganella morganii Critically abnormal [facility] Bacteria identified Cx Nom (Bld) Providencia stuartii Critically abnormal [facility] - Microbiology an d Antimicrobial susceptibilityOrdered By: Yani Martínez on 04-18-2024 Bacteria identified Cx Nom (Bld) Proteus mirabilis Critically abnormal [facility] Bacteria identified Cx Nom (Bld) Providencia stuartii Critically abnormal [facility] Bacteria identified Cx Nom (Bld) Morganella morganii Critically abnormal [facility] Manual differential performe d Ql (Bld)on 04-18-2024 Anisocytosis Ql (Bld) Slight Abnormal (none) [facility] Cells Counted Total (Bld) [#] 100 {cells} [facility] Differential Method Manual differential performed [facility] Eosinophils (Bld) [#/Vol] 0.1 10*3/uL 0.0 - 0.5 10*3/uL [facility] Eosinophils Manual 1 0 - 1 [facility] Eosinophils/100 WBC (Bld) 1 % 0 - 6 % [facility] Hypochromia Ql (Bld) Slight Abnormal (none) [facility] Interpretation and review of laboratory results Abnormal [facility] Leukocyte morphology finding Nom (Bld) Normal [facility] Lymphocytes (Bld) [#/Vol] 1.1 10*3/uL 1.0 - 4.3 10*3/uL [facility] Lymphocytes Manual 13 [facility] Lymphocytes/100 WBC (Bld) 13 % Low 15 - 45 % [facility] Monocytes (Bld) [#/Vol] 0.7 10*3/uL 0.0 - 0.9 10*3/uL [facility] Monocytes Manual 8 [facility] Monocytes/100 WBC (Bld) 8 % 5 - 13 % [facility] Neutrophils (Bld) [#/Vol] 6.6 10*3/uL 1.8 - 7.0 10*3/uL [facility] Neutrophils Manual 78 [facility] Platelet morphology finding Nom (Bld) Normal [facility] Segmented neutrophils/100 WBC (Bld) 78 % 38 - 82 % [facility] WBC corrected for nucl RBC (Bld) [#/Vol] 8.4 10*3/uL 3.6 - 10.7 10*3/uL [facility] No Panel Informationon 04-18 Interpretation and review of laboratory results Abnormal [facility] Interpretation and review of laboratory results Abnormal [facility] Interpretation and review of laboratory results Abnormal [facility] Interpretation and review of laboratory results Abnormal [facility] Interpretation and review of laboratory results Normal [facility] Phosphate [Moles/Vol]on 04-04 Interpretation and review of laboratory results Normal [facility] Phosphate [Mass/Vol] 3.8 mg/dL 2.5 - 4 .5 mg/dL [facility] Bacteria identified Cx Nom ( U)Ordered By: Darya Clark on 04-17-2024 Interpretation and review of laboratory results Abnormal [facility] CBC W Auto Differential pane l (Bld)on 04-17-2024 Basophils (Bld) [#/Vol] 0.0 10*3/uL 0.0 - 0.2 10*3/uL [facility] Basophils/100 WBC (Bld) 0.1 % 0.0 - 2.0 % [facility] Eosinophils (Bld) [#/Vol] 0.1 10*3/uL 0.0 - 0.5 10*3/uL [facility] Eosinophils/100 WBC (Bld) 1.4 % 0.0 - 6.0 % [facility] Erythrocyte distribution width (RBC) [Ratio] 14.9 % 11.5 - 15.0 % [facility] Hematocrit (Bld) [Volume fraction] 35.4 % Low 40.0 - 52.0 % [facility] Hemoglobin (Bld) [Mass/Vol] 11.5 g/dL Low 13.0 - 18.0 g/dL [facility] Immature granulocytes (Bld) [#/Vol] 0.0 10*3/uL NINF - 0.1 10*3/uL [facility] Immature granulocytes/100 WBC (Bld) 0.3 % 0.0 - 2.0 % [facility] Interpretation and review of laboratory results Abnormal [facility] IPF 6 [facility] Lymphocytes (Bld) [#/Vol] 1.3 10*3/uL 1.0 - 4.3 10*3/uL [facility] Lymphocytes/100 WBC (Bld) 16.8 % 15.0 - 45.0 % [facility] MCH (RBC) [Entitic mass] 30.0 pg 26. 0 - 34.0 pg [facility] MCHC (RBC) [Mass/Vol] 32.5 % 30.5 - 36.0 % [facility] MCV (RBC) [Entitic vol] 92.4 fL 77.0 - 99.0 fL [facility] Monocytes (Bld) [#/Vol] 0.4 10*3/uL 0.0 - 0.9 10*3/uL [facility] Monocytes/100 WBC (Bld) 5.5 % 5.0 - 13.0 % [facility] Neutrophils (Bld) [#/Vol] 6.0 10*3/uL 1.8 - 7.5 10*3/uL [facility] Neutrophils/100 WBC (Bld) 75.9 % 38.0 - 82.0 % [facility] Nucleated RBC/100 WBC (Bld) [Ratio] 0.0 % [facility] Platelet mean volume (Bld) [Entitic vol] 11.6 fL 9.0 - 12.7 fL [facility] Platelets (Bld) [#/Vol] 77 10*3/uL Low 140 - 440 10*3/uL [facility] RBC (Bld) [#/Vol] 3.83 10*6/uL Low 4.40 - 5.9 0 10*6/uL [facility] WBC (Bld) [#/Vol] 7.9 10*3/uL 3.6 - 10.7 10*3/uL [facility] Comprehensive metabolic 1998 panelon 04-17-2024 Albumin [Mass/Vol] 2.6 g/dL Low 3.5 - 5.0 g/dL [facility] ALP [Catalytic activity/Vol] 128 U/L High 38 - 126 U/L [facility] ALT [Catalytic activity/Vol] 22 U/L 0 - 49 U/L [facility] Anion gap [Moles/Vol] 5 mmol/L 3 - 13 mmol/L [facility] AST [Catalytic activity/Vol] 22 U/L 15 - 46 U/L [facility] Bilirubin [Mass/Vol] 0.7 mg/dL 0.2 - 1 .3 mg/dL [facility] Calcium [Mass/Vol] 7.9 mg/dL Low 8.4 - 10. 4 mg/dL [facility] Chloride [Moles/Vol] 107 mmol/L 98 - 10 7 mmol/L [facility] CO2 [Moles/Vol] 23 mmol/L 22 - 30 mmol/L [facility] Creatinine [Mass/Vol] 0.58 mg/dL Low 0.66 - 1.25 mg/dL [facility] GFR/1.73 sq M.predicted MDRD (S/P/Bld) [Vol rate/Area] - PINF [facility] Glucose [Mass/Vol] 144 mg/dL High 70 - 100 mg/dL [facility] Interpretation and review of laboratory results Abnormal [facility] Potassium [Moles/Vol] 3.2 mmol/L Low 3.5 - 5.1 mmol/L [facility] Protein [Mass/Vol] 5.6 g/dL Low 6.3 - 8.2 g/dL [facility] Sodium [Moles/Vol] 135 mmol/L 135 - 145 mmol/L [facility] Urea nitrogen [Mass/Vol] 23 mg/dL High 9 - 20 mg/dL [facility] Laboratory - Chemistry and C hemistry - challengeon 04-17-2024 Glucose [Mass/Vol] 200 mg/dL High 70 - 100 mg/dL [facility] Glucose [Mass/Vol] 235 mg/dL High 70 - 100 mg/dL [facility] Glucose [Mass/Vol] 200 mg/dL High 70 - 100 mg/dL [facility] Glucose [Mass/Vol] 104 mg/dL High 70 - 100 mg/dL [facility] Magnesium [Mass/Vol] 1.6 mg/dL 1.6 - 2 .3 mg/dL [facility] Laboratory - Microbiology an d Antimicrobial susceptibilityOrdered By: Darya Clark on 04-17-2024 Bacteria identified Cx Nom (U) Normal urogenital gosia present [facility] Bacteria identified Cx Nom (U) 50,000-90,000 CFU/mL Providencia stuartii Abnormal [facility] No Panel Informationon 04-17 Interpretation and review of laboratory results Abnormal [facility] Interpretation and review of laboratory results Abnormal [facility] Interpretation and review of laboratory results Abnormal [facility] Interpretation and review of laboratory results Abnormal [facility] Interpretation and review of laboratory results Normal [facility] Phosphate [Moles/Vol]on 04-04 Phosphate [Mass/Vol] 2.8 mg/dL 2.5 - 4 .5 mg/dL [facility] CBC W Auto Differential pane l (Bld)Ordered By: Jj North on 04-16-2024 Erythrocyte distribution width (RBC) [Ratio] 15.2 % High 11.5 - 15.0 % [facility] Hematocrit (Bld) [Volume fraction] 37.2 % Low 40.0 - 52.0 % [facility] Hemoglobin (Bld) [Mass/Vol] 12.0 g/dL Low 13.0 - 18.0 g/dL [facility] IPF 8 [facility] MCH (RBC) [Entitic mass] 30.7 pg 26. 0 - 34.0 pg [facility] MCHC (RBC) [Mass/Vol] 32.3 % 30.5 - 36.0 % [facility] MCV (RBC) [Entitic vol] 95.1 fL 77.0 - 99.0 fL [facility] Platelet mean volume (Bld) [Entitic vol] 12.0 fL 9.0 - 12.7 fL [facility] Platelets (Bld) [#/Vol] 76 10*3/uL Low 140 - 440 10*3/uL [facility] RBC (Bld) [#/Vol] 3.91 10*6/uL Low 4.40 - 5.9 0 10*6/uL [facility] WBC (Bld) [#/Vol] 11.9 10*3/uL High 3.6 - 10.7 10*3/uL [facility] Comprehensive metabolic 1998 panelon 04-16-2024 Albumin [Mass/Vol] 2.8 g/dL Low 3.5 - 5.0 g/dL [facility] ALP [Catalytic activity/Vol] 130 U/L High 38 - 126 U/L [facility] ALT [Catalytic activity/Vol] 26 U/L 0 - 49 U/L [facility] Anion gap [Moles/Vol] 6 mmol/L 3 - 13 mmol/L [facility] AST [Catalytic activity/Vol] 37 U/L 15 - 46 U/L [facility] Bilirubin [Mass/Vol] 0.9 mg/dL 0.2 - 1 .3 mg/dL [facility] Calcium [Mass/Vol] 8.2 mg/dL Low 8.4 - 10. 4 mg/dL [facility] Chloride [Moles/Vol] 105 mmol/L 98 - 10 7 mmol/L [facility] CO2 [Moles/Vol] 25 mmol/L 22 - 30 mmol/L [facility] Creatinine [Mass/Vol] 0.70 mg/dL 0.66 - 1.25 mg/dL [facility] GFR/1.73 sq M.predicted MDRD (S/P/Bld) [Vol rate/Area] - PINF [facility] Glucose [Mass/Vol] 315 mg/dL High 70 - 100 mg/dL [facility] Interpretation and review of laboratory results Abnormal [facility] Potassium [Moles/Vol] 4.3 mmol/L 3.5 - 5.1 mmol/L [facility] Protein [Mass/Vol] 6.0 g/dL Low 6.3 - 8.2 g/dL [facility] Sodium [Moles/Vol] 137 mmol/L 135 - 145 mmol/L [facility] Urea nitrogen [Mass/Vol] 30 mg/dL High 9 - 20 mg/dL [facility] Laboratory - Chemistry and C hemistry - challengeon 04-16-2024 Glucose [Mass/Vol] 253 mg/dL High 70 - 100 mg/dL [facility] Glucose [Mass/Vol] 307 mg/dL High 70 - 100 mg/dL [facility] Glucose [Mass/Vol] 333 mg/dL High 70 - 100 mg/dL [facility] Glucose [Mass/Vol] 323 mg/dL High 70 - 100 mg/dL [facility] Magnesium [Mass/Vol] 2.0 mg/dL 1.6 - 2 .3 mg/dL [facility] Laboratory - Coagulationon 0 04-16-2024 aPTT Coag (PPP) [Time] 25.4 s 20.0 - 30.5 s [facility] INR Coag (PPP) [Relative time] 1.0 {INR} 0.9 - 1.1 [facility] PT Coag (Bld) [Time] 10.9 s 9.0 - 1 2.0 s [facility] - Drug toxicology on 04-16-2024 Vancomycin [Mass/Vol] 12.3 ug/mL Low 15.0 - 20.0 ug/mL [facility] Laboratory - Hematology and Cell countson 04-16-2024 Anisocytosis Ql (Bld) Rare Abnormal (none) [facility] Band form neutrophils (Bld) [#/Vol] 0.2 10*3/uL High NINF - 0.0 10*3/uL [facility] Band form neutrophils/100 WBC (Bld) 2 % High NINF - 0 % [facility] Delancey cells LM Ql (Bld) Slight Abnormal (none) [facility] Lymphocytes (Bld) [#/Vol] 0.5 10*3/uL Low 1.0 - 4.3 10*3/uL [facility] Lymphocytes/100 WBC (Bld) 4 % Low 15 - 45 % [facility] Monocytes (Bld) [#/Vol] 0.1 10*3/uL 0.0 - 0.9 10*3/uL [facility] Monocytes/100 WBC (Bld) 1 % Low 5 - 13 % [facility] Neutrophils (Bld) [#/Vol] 11.3 10*3/uL High 1.8 - 7.5 10*3/uL [facility] Ovalocytes LM Ql (Bld) Rare Abnormal (none) [facility] Poikilocytosis LM Ql (Bld) Slight Abnormal (none) [facility] RBC morphology finding Nom (Bld) abnormal [facility] Segmented neutrophils/100 WBC (Bld) 93 % High 38 - 82 % [facility] No Panel Informationon 04-16 Interpretation and review of laboratory results Abnormal [facility] Interpretation and review of laboratory results Abnormal [facility] Interpretation and review of laboratory results Normal [facility] Interpretation and review of laboratory results Abnormal [facility] Interpretation and review of laboratory results Abnormal [facility] Bands Manual 2 [facility] Lymphocytes Manual 4 [facility] Monocytes Manual 1 [facility] Neutrophils Manual 96 [facility] Interpretation and review of laboratory results Abnormal [facility] Interpretation and review of laboratory results Normal [facility] No Panel InformationOrdered By: Jj North on 04-16-2024 Interpretation and review of laboratory results Abnormal [facility] Phosphate [Moles/Vol]on 04-04 Phosphate [Mass/Vol] 2.7 mg/dL 2.5 - 4 .5 mg/dL [facility] CBC W Auto Differential pane l (Bld)Ordered By: Dawood Juan on 04-15-2024 Erythrocyte distribution width (RBC) [Ratio] 14.9 % 11.5 - 15.0 % [facility] Hematocrit (Bld) [Volume fraction] 36.2 % Low 40.0 - 52.0 % [facility] Hemoglobin (Bld) [Mass/Vol] 11.9 g/dL Low 13.0 - 18.0 g/dL [facility] Interpretation and review of laboratory results Abnormal [facility] IPF 5 [facility] MCH (RBC) [Entitic mass] 30.9 pg 26. 0 - 34.0 pg [facility] MCHC (RBC) [Mass/Vol] 32.9 % 30.5 - 36.0 % [facility] MCV (RBC) [Entitic vol] 94.0 fL 77.0 - 99.0 fL [facility] Platelet mean volume (Bld) [Entitic vol] 10.8 fL 9.0 - 12.7 fL [facility] Platelets (Bld) [#/Vol] 107 10*3/uL Low 140 - 440 10*3/uL [facility] RBC (Bld) [#/Vol] 3.85 10*6/uL Low 4.40 - 5.9 0 10*6/uL [facility] WBC (Bld) [#/Vol] 11.2 10*3/uL High 3.6 - 10.7 10*3/uL [facility] CBC W Auto Differential pane l (Bld)Ordered By: Benigno Guerrier on 04-15-2024 Erythrocyte distribution width (RBC) [Ratio] 14.8 % 11.5 - 15.0 % [facility] Hematocrit (Bld) [Volume fraction] 39.1 % Low 40.0 - 52.0 % [facility] Hemoglobin (Bld) [Mass/Vol] 12.4 g/dL Low 13.0 - 18.0 g/dL [facility] Interpretation and review of laboratory results Abnormal [facility] IPF 5 [facility] MCH (RBC) [Entitic mass] 30.8 pg 26. 0 - 34.0 pg [facility] MCHC (RBC) [Mass/Vol] 31.7 % 30.5 - 36.0 % [facility] MCV (RBC) [Entitic vol] 97.0 fL 77.0 - 99.0 fL [facility] Platelet mean volume (Bld) [Entitic vol] 10.9 fL 9.0 - 12.7 fL [facility] Platelets (Bld) [#/Vol] 117 10*3/uL Low 140 - 440 10*3/uL [facility] RBC (Bld) [#/Vol] 4.03 10*6/uL Low 4.40 - 5.9 0 10*6/uL [facility] WBC (Bld) [#/Vol] 5.4 10*3/uL 3.6 - 10.7 10*3/uL [facility] Comprehensive metabolic 1998 panelon 04-15-2024 Albumin [Mass/Vol] 2.6 g/dL Low 3.5 - 5.0 g/dL [facility] ALP [Catalytic activity/Vol] 168 U/L High 38 - 126 U/L [facility] ALT [Catalytic activity/Vol] 34 U/L 0 - 49 U/L [facility] Anion gap [Moles/Vol] 10 mmol/L 3 - 13 mmol/L [facility] AST [Catalytic activity/Vol] 36 U/L 15 - 46 U/L [facility] Bilirubin [Mass/Vol] 1.1 mg/dL 0.2 - 1 .3 mg/dL [facility] Calcium [Mass/Vol] 7.9 mg/dL Low 8.4 - 10. 4 mg/dL [facility] Chloride [Moles/Vol] 105 mmol/L 98 - 10 7 mmol/L [facility] CO2 [Moles/Vol] 19 mmol/L Low 22 - 30 mmol/L [facility] Creatinine [Mass/Vol] 1.01 mg/dL 0.66 - 1.25 mg/dL [facility] GFR/1.73 sq M.predicted MDRD (S/P/Bld) [Vol rate/Area] 84.1 mL/min/{1.73_m2} - PINF [facility] th Glucose [Mass/Vol] 286 mg/dL High 70 - 100 mg/dL [facility] Interpretation and review of laboratory results Abnormal [facility] Potassium [Moles/Vol] 3.6 mmol/L 3.5 - 5.1 mmol/L [facility] Protein [Mass/Vol] 5.5 g/dL Low 6.3 - 8.2 g/dL [facility] Sodium [Moles/Vol] 135 mmol/L 135 - 145 mmol/L [facility] Urea nitrogen [Mass/Vol] 25 mg/dL High 9 - 20 mg/dL [facility] Laboratory - Chemistry and C hemistry - challengeon 04-15-2024 Glucose [Mass/Vol] 390 mg/dL High 70 - 100 mg/dL [facility] Glucose [Mass/Vol] 342 mg/dL High 70 - 100 mg/dL [facility] Average glucose Estimated from glycated hemoglobin (Bld) [Mass/Vol] 134 mg/dL [facility] Glucose [Mass/Vol] 287 mg/dL High 70 - 100 mg/dL [facility] Lactate [Moles/Vol] 2.0 mmol/L 0.7 - 2. 0 mmol/L [facility] Procalcitonin [Mass/Vol] 27.06 ng/mL High 0.0 0 - 0.09 ng/mL [facility] Glucose [Mass/Vol] 285 mg/dL High 70 - 100 mg/dL [facility] Lactate [Moles/Vol] 3.6 mmol/L High 0.7 - 2. 0 mmol/L [facility] Magnesium [Mass/Vol] 1.7 mg/dL 1.6 - 2 .3 mg/dL [facility] Laboratory - Drug toxicology on 04-15-2024 Vancomycin [Mass/Vol] 10.8 ug/mL Low 15.0 - 20.0 ug/mL [facility] Laboratory - Hematology and Cell countson 04-15-2024 HbA1c (Bld) [Mass fraction] 6.3 % High NINF - 5.7 % [facility] Band form neutrophils (Bld) [#/Vol] 2.6 10*3/uL High NINF - 0.0 10*3/uL [facility] Band form neutrophils/100 WBC (Bld) 23 % High NINF - 0 % [facility] [place] cells LM Ql (Bld) Slight Abnormal (none) [...] 1 % 0 - 2 % [facility] [place] cells LM Ql (Bld) Slight Abnormal (none) [facility] Lymphocytes (Bld) [#/Vol] 0.1 10*3/uL Low 1.0 - 4.3 10*3/uL [facility] Lymphocytes/100 WBC (Bld) 1 % Low 15 - 45 % [facility] Metamyelocytes (Bld) [#/Vol] 0.1 10*3/uL High NINF - 0.0 10*3/uL [facility] Metamyelocytes/100 WBC (Bld) 1 % High NINF - 0 % [facility] Monocytes (Bld) [#/Vol] 0.0 10*3/uL 0.0 - 0.9 10*3/uL [facility] Monocytes/100 WBC (Bld) 0 % Low 5 - 13 % [facility] Neutrophils (Bld) [#/Vol] 5.2 10*3/uL 1.8 - 7.5 10*3/uL [facility] Poikilocytosis LM Ql (Bld) Rare Abnormal (none) [facility] RBC morphology finding Nom (Bld) abnormal [facility] Segmented neutrophils/100 WBC (Bld) 74 % 38 - 82 % [facility] MRSA DNA JOSSY+probe Ql (Nose) on 04-15-2024 Interpretation and review of laboratory results Abnormal [facility] mecA gene Not detected Not Detected [facility] Staphylococcus aureus Detected Abnormal Not Detected [facility] No Panel Informationon 04-15 Interpretation and review of laboratory results Abnormal [facility] Interpretation and review of laboratory results Abnormal [facility] Interpretation and review of laboratory results Abnormal [facility] Interpretation and review of laboratory results Abnormal [facility] Interpretation and review of laboratory results Normal [facility] Interpretation and review of laboratory results Abnormal [facility] Bands Manual 23 [facility] Interpretation and review of laboratory results Abnormal [facility] Lymphocytes Manual 1 [facility] Metamyelocytes Manual 1 [facility] Monocytes Manual 1 [facility] Neutrophils Manual 76 [facility] Interpretation and review of laboratory results Abnormal [facility] Interpretation and review of laboratory results Normal [facility] CV EPIPHANY [facility] Interpretation and review of laboratory results Abnormal [facility] Bands Manual 23 [facility] Basophils Manual 1 [facility] Interpretation and review of laboratory results Abnormal [facility] Lymphocytes Manual 1 [facility] Metamyelocytes Manual 1 [facility] Monocytes Manual 0 [facility] Neutrophils Manual 74 [facility] No Panel InformationOrdered By: Radha Clarke on 04-15-2024 Interpretation and review of laboratory results Abnormal [facility] Proteus species Detected Abnormal Not Detected [facility] No Panel InformationOrdered By: Gerber Cardona on 04-15-2024 P [place] [address] [facility] [employer] Work Phone: [place] Interval [address] [facility] [employer] Work Phone: QRS [place] 36 degrees [facility] [employer] Work Phone: QRSD Interval 90 ms [facility] Work Phone: QT Interval [address] [facility] [employer] Work Phone: QTC Interval [address] [facility] [employer] Work Phone: T Wave [place] [address] [facility] [employer] Work Phone: [facility] [employer] Work Phone: Phosphate [Moles/Vol]on 04-04 Phosphate [Mass/Vol] 3.3 mg/dL 2.5 - 4 .5 mg/dL [facility] Procalcitonin [Mass/Vol]on 04-15-2024 Interpretation and review of laboratory results Abnormal [facility] Vital signsOrdered By: Gerber Cardona on 04-15-2024 Heart rate 119 /min bpm [facility] [employer] Work Phone: ABO and Rh group Confirm Nom (Bld)on 04-14-2024 ABO group Nom (Bld) O [facility] [employer] D Ag Ql (RBC) Negative [facility] ABO and Rh group panel (Bld) on 04-14-2024 ABO group Nom (Bld) O [facility] [employer] D Ag Ql (RBC) Negative [facility] CBC W Auto Differential pane l (Bld)Ordered By: Bev Santizo on 04-14-2024 Erythrocyte distribution width (RBC) [Ratio] 14.8 % 11.5 - 15.0 % [facility] Hematocrit (Bld) [Volume fraction] 47.3 % 40.0 - 52.0 % [facility] Hemoglobin (Bld) [Mass/Vol] 15.2 g/dL 13.0 - 18.0 g/dL [facility] Interpretation and review of laboratory results Abnormal [facility] MCH (RBC) [Entitic mass] 30.7 pg 26. 0 - 34.0 pg [facility] MCHC (RBC) [Mass/Vol] 32.1 % 30.5 - 36.0 % [facility] MCV (RBC) [Entitic vol] 95.6 fL 77.0 - 99.0 fL [facility] Platelet mean volume (Bld) [Entitic vol] 10.8 fL 9.0 - 12.7 fL [facility] Platelets (Bld) [#/Vol] 183 10*3/uL 140 - 440 10*3/uL [facility] RBC (Bld) [#/Vol] 4.95 10*6/uL 4.40 - 5.9 0 10*6/uL [facility] WBC (Bld) [#/Vol] 1.5 10*3/uL Critically low 3.6 - 10 .7 10*3/uL [facility] CT Abdomen WO contraston [facility] RADIOLOGY [facility] RADIOLOGY [facility] Radiology Study observation (narrative) [facility] CT Abdomen WO contrastOrdere d By: Joe Monroy on 04-14-2024 [facility] Work Phone: Comprehensive metabolic 1998 panelon 04-14-2024 Albumin [Mass/Vol] 4.0 g/dL 3.5 - 5.0 g/dL [facility] ALP [Catalytic activity/Vol] 167 U/L High 38 - 126 U/L [facility] ALT [Catalytic activity/Vol] 22 U/L 0 - 49 U/L [facility] Anion gap [Moles/Vol] 16 mmol/L High 3 - 13 mmol/L [facility] AST [Catalytic activity/Vol] 25 U/L 15 - 46 U/L [facility] Bilirubin [Mass/Vol] 1.4 mg/dL High 0.2 - 1 .3 mg/dL [facility] Calcium [Mass/Vol] 9.0 mg/dL 8.4 - 10. 4 mg/dL [facility] Chloride [Moles/Vol] 102 mmol/L 98 - 10 7 mmol/L [facility] CO2 [Moles/Vol] 19 mmol/L Low 22 - 30 mmol/L [facility] Creatinine [Mass/Vol] 1.24 mg/dL 0.66 - 1.25 mg/dL [facility] GFR/1.73 sq M.predicted MDRD (S/P/Bld) [Vol rate/Area] 65.7 mL/min/{1.73_m2} - PINF [facility] th Glucose [Mass/Vol] 259 mg/dL High 70 - 100 mg/dL [facility] Potassium [Moles/Vol] 3.9 mmol/L 3.5 - 5.1 mmol/L [facility] Protein [Mass/Vol] 7.8 g/dL 6.3 - 8.2 g/dL [facility] Sodium [Moles/Vol] 137 mmol/L 135 - 145 mmol/L [facility] Urea nitrogen [Mass/Vol] 21 mg/dL High 9 - 20 mg/dL [facility] Laboratory - Chemistry and C hemistry - challengeOrdered By: Meliton Burrows on 04-14-2024 Lactate [Moles/Vol] 4.9 mmol/L Critically high 0.7 - 2.0 mmol/L [facility] Laboratory - Chemistry and C hemistry - challengeon 04-14-2024 Glucose [Mass/Vol] 223 mg/dL High 70 - 100 mg/dL [facility] Glucose [Mass/Vol] 210 mg/dL High 70 - 100 mg/dL [facility] Glucose [Mass/Vol] 226 mg/dL High 70 - 100 mg/dL [facility] Lipase [Catalytic activity/Vol] U/L Low 23 - 300 U/L [facility] Lactate [Moles/Vol] 3.9 mmol/L High 0.7 - 2. 0 mmol/L [facility] Troponin I.cardiac [Mass/Vol] ng/mL NINF - 0.034 ng/mL [facility] Beta hydroxybutyrate [Mass/Vol] 1.08 mg/dL 0.20 - 2.81 mg/dL [facility] Base excess Calc (BldV) [Moles/Vol] -8.0000 mmol/L Low -3.0 - 3.0 mmol/L [facility] CO2 (BldV) [Partial pressure] 47.4 mm[Hg] [facility] CO2 [Moles/Vol] 20.9 mmol/L Low 23.0 - 30.0 mmol/L [facility] HCO3 (Bld) [Moles/Vol] 19.5 mmol/L Low 21.0 - 30.0 mmol/L [facility] Oxygen (BldV) [Partial pressure] 40.8 mm[Hg] mm Hg [facility] pH (BldV) 7.232 [pH] Low 7.320 - 7.420 [facility] Lipase [Catalytic activity/Vol] 12 U/L Low 23 - 300 U/L [facility] Laboratory - Chemistry and C hemistry - challengeOrdered By: Elliot Martines on 04-14-2024 Lactate [Moles/Vol] 5.1 mmol/L Critically high 0.7 - 2.0 mmol/L [facility] Laboratory - Coagulationon 0 04-14-2024 PT Coag (Bld) [Time] 27.1 s High 9.0 - 1 2.0 s [facility] Laboratory - Hematology and Cell countson 04-14-2024 Hemoglobin (Bld) [Mass/Vol] 13.7 g/dL Screen only [facility] Band form neutrophils (Bld) [#/Vol] 0.3 10*3/uL High NINF - 0.0 10*3/uL [facility] Band form neutrophils/100 WBC (Bld) 17 % High NINF - 0 % [facility] Basophils (Bld) [#/Vol] 0.0 10*3/uL 0.0 - 0.2 10*3/uL [facility] Basophils/100 WBC (Bld) 1 % 0 - 2 % [facility] Lymphocytes (Bld) [#/Vol] 0.6 10*3/uL Low 1.0 - 4.3 10*3/uL [facility] Lymphocytes/100 WBC (Bld) 38 % 15 - 45 % [facility] Monocytes (Bld) [#/Vol] 0.0 10*3/uL 0.0 - 0.9 10*3/uL [facility] Monocytes/100 WBC (Bld) 1 % Low 5 - 13 % [facility] Neutrophils (Bld) [#/Vol] 0.9 10*3/uL Low 1.8 - 7.5 10*3/uL [facility] RBC morphology finding Nom (Bld) Normal [facility] Segmented neutrophils/100 WBC (Bld) 42 % 38 - 82 % [facility] Lipase [Catalytic activity/V ol]on 04-14-2024 Interpretation and review of laboratory results Abnormal [facility] No Panel InformationOrdered By: Meliton Burrows on 04-14-2024 Interpretation and review of laboratory results Abnormal [facility] No Panel Informationon 04-14 Interpretation and review of laboratory results Abnormal [facility] Interpretation and review of laboratory results Abnormal [facility] Interpretation and review of laboratory results Abnormal [facility] Interpretation and review of laboratory results Abnormal [facility] Interpretation and review of laboratory results Abnormal [facility] Interpretation and review of laboratory results Normal [facility] Interpretation and review of laboratory results Abnormal [facility] Source Of Oxygen Room Air [facility] He alth [facility] Bands Manual 17 [facility] Basophils Manual 1 [facility] Interpretation and review of laboratory results Abnormal [facility] Lymphocytes Manual 38 [facility] Monocytes Manual 1 [facility] Neutrophils Manual 42 [facility] Interpretation and review of laboratory results Abnormal [facility] No Panel InformationOrdered By: Elliot Martines on 04-14-2024 Interpretation and review of laboratory results Abnormal [facility] PT Coag (Bld) [Time]on 04-14 INR Coag (PPP) [Relative time] 2.7 {INR} High 0.9 - 1.1 [facility] RF Kidney and Ureter and Uri nary bladder Views W contrast retrogradeon 04-14-2024 IMAGING Troponin I.cardiac [Mass/Vol ]on 04-14-2024 Interpretation and review of laboratory results Normal [facility] Vital signson 04-14-2024 Oxygen saturation in Venous blood 70.7 % [facility] XR Chest Single viewon 04-14 [facility] RADIOLOGY SYSTEM [facility] RADIOLOG[facility] Radiology Study observation (narrative) [facility] XR Chest Single viewOrdered By: Geneva Lunsford on 04-14-2024 [facility] Work Phone: aPTT Coag (Bld) [Time]on aPTT Coag (PPP) [Time] 68.0 s High 20.0 - 30.[address] [facility] [employer] [facility] Telephone Encounteron 2023 [employer] Aut[employer] Interface Message Text Called pt on [...] spine surgery. Vaishali Pierre, DO Normal [employer] Telephone Encounteron 2023 [employer] Authentication Interface Message Text Telephoned [place] pt at dinner and medical receptionist assistant states she cannot pull pt away from dinner. Normal [employer] Authentication Interface Message Text Called pt regarding [...] to the above findings.He does not have [employer] set up to message. Vaishali Pierre, DO Normal [employer] MR L-SPINE W/+W/Oon 04-05-20 MR L-SPINE [...] or epidural abscess. MACRO: None Normal [employer] MR Lumbar spine WO and W [...] History of lumbar fusion ORDERING PROVIDER: VAISHALI [facility] NOTE: COMPARISON: Lumbar radiographs from [...] History of lumbar fusion ORDERING PROVIDER: VAISHALI [facility] NOTE: COMPARISON: Lumbar radiographs from [...] osteomyelitis discitis or epidural abscess. MACRO: None [facility] Radiology Study observation (narrative) [facility] MR Lumbar spine WO and W con trast IVOrdered By: Hector Li on 04-05-2024 [employer] Work Phone: Patient Instructionson 02-09 [employer] Aut[employer] Interface Message Text - xrays of the low back - can schedule the MRI of the lumbar spine - I recommend seeing one of my colleagues in the spinal cord injury clinic Normal [employer] Progress Noteson 02-10-2024 [employer] Aut[employer] Interface Message Text Physical Medicine and [...] currently in a nursing facility, [facility]. 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 Normal [employer] Aut[employer] Interface Message Text Vitals not obtained per provider's instructions. Normal [employer] XR L-SPINE AP+LATERAL 2-3 EWSon 02-10-2024 XR L-SPINE AP+LATERAL 2-3 VIEWS EXAMINATION: XR L-SPINE AP+LATERAL 2-3 VIEWS 02/10/2024 02:27 PM CLINICAL HISTORY: lower thoracic, upper lumbar pareplegia, h/o lumbar surgery. Obtaining updated MRI. Need pre xray ASSOCIATED DIAGNOSIS: Paraplegia (HCC) History of lumbar fusion ORDERING PROVIDER: [email or web address] [employer] NOTE: COMPARISON: None FINDINGS: There is [...] segments is considered. MACRO: None Normal [employer] XR Lumbar spine AP and Later [place] 02-10-2024 EXAMINATION: XR L-SPINE AP+LATERAL 2-3 VIEWS 02/10/2024 02:27 PM CLINICAL HISTORY: lower thoracic, upper lumbar pareplegia, h/o lumbar surgery. Obtaining updated MRI. Need pre xray ASSOCIATED DIAGNOSIS: Paraplegia (HCC) History of lumbar fusion ORDERING PROVIDER: [facility] NOTE: COMPARISON: None FINDINGS: There [...] on L3 segments is considered. MACRO: None [facility] Radiology Study observation (narrative) [facility] XR Lumbar spine AP and Later alOrdered By: Juan William on 02-10-2024 [facility] Work Phone: Basophil percentageOrdered B y: Tab Dupont on 01-15-2024 Chloride [Moles/Vol] 109 mmol/L 98-107 [facility] Glucose [Mass/Vol] 122 mg/dL 74-106 [facility] Comment on above: Fasting Glucose resu lt from 100 to 125 mg/dL suggests IMPAIRED HOMEOSTASIS per A.D.A. criteria. Hemoglobin (Bld) [Mass/Vol] 13.0 g/dL 13.0-16.5 [facility] Potassium [Moles/Vol] 3.8 mmol/L 3.5-5.1 [facility] Sodium [Moles/Vol] 139 mmol/L 136-145 [facility] WBC (Bld) [#/Vol] 6.6 10*3/uL 4.4-11.0 [facility] Determination of erythrocyte mean corpuscular volume (MCV)Ordered By: Tab Dupont on 01-15-2024 MCV (RBC) [Entitic vol] 94.3 fL 80-94 [facility] Erythrocyte distribution wid th ratioOrdered By: Tab Dupont on 01-15-2024 Erythrocyte distribution width (RBC) [Ratio] 13.8 % 11.6-14.6 [facility] Erythrocyte distribution wid th standard deviationOrdered By: Tab Dupont on 01-15-2024 Erythrocyte distribution width (RBC) [Entitic vol] 48.0 fL 35.1-43.9 [facility] Hematocrit Auto (Bld) [Volum e fraction]Ordered By: Tab Dupont on 01-15-2024 Hematocrit (Bld) [Volume fraction] 39.5 % 40-54 [facility] Laboratory - Chemistry and C hemistry - challengeOrdered By: Tab Dupont on 01-15-2024 CO2 [Moles/Vol] 26.0 mmol/L 21.0-32.0 [facility] Urea nitrogen/Creatinine [Mass ratio] 21.6 mg/mg 10-20 [facility] Laboratory - Hematology and Cell countsOrdered By: Tab Dupont on 01-15-2024 MCH (RBC) [Entitic mass] 31.0 pg 27.0-32.0 [facility] MCHC (RBC) [Mass/Vol] 32.9 g/dL 32-36 [facility] Platelet mean volume (Bld) [Entitic vol] 10.4 fL 6.2-12.0 [facility] Platelets (Bld) [#/Vol] 257 10*3/uL 150-450 [facility] No Panel InformationOrdered By: Tab Dupont on 01-15-2024 Estimated GFR (MDRD) Amer 236 mL/min >60 [facility] Comment on above: GFR Calc Estimated GFR (MDRD) Non-Af Amer 195 mL/min >60 [facility] Comment on above: Non- GFR Calc RBC Auto (Bld) [#/Vol]Ordere d By: Tab Dupont on 01-15-2024 RBC (Bld) [#/Vol] 4.19 10*6/uL 4.6-6.2 [facility] Serum or plasma calcium randall urement (mass/volume)Ordered By: Tab Dupont on 01-15-2024 Calcium [Mass/Vol] 8.7 mg/dL 8.5-10.1 [facility] Serum or plasma creatinine m easurement (mass/volume)Ordered By: Tab Dupont on 01-15-2024 Creatinine [Mass/Vol] 0.46 mg/dL 0.70-1.30 [facility] Comment on above: The validity of the calculated GFR & GFRAA in patients over 70 years has not been determined. Clinical correlation is essential. Serum or plasma urea nitroge n measurement (mass/volume)Ordered By: Tab Dupont on 01-15-2024 Urea nitrogen [Mass/Vol] 10 mg/dL 7-18 [facility] Thin prep Papanicolaou smear with manual screeningOrdered By: Tab Dupont on 01-15-2024 Thin prep Papanicolaou smear with manual screening 4 5-15 [facility] Basophil percentageOrdered B y: Tab Dupont on 01-07-2024 Chloride [Moles/Vol] 112 mmol/L 98-107 [facility] Glucose [Mass/Vol] 114 mg/dL 74-106 [facility] Comment on above: Fasting Glucose resu lt from 100 to 125 mg/dL suggests IMPAIRED HOMEOSTASIS per A.D.A. criteria. Hemoglobin (Bld) [Mass/Vol] 13.0 g/dL 13.0-16.5 [facility] Potassium [Moles/Vol] 3.8 mmol/L 3.5-5.1 [facility] Sodium [Moles/Vol] 140 mmol/L 136-145 [facility] WBC (Bld) [#/Vol] 8.1 10*3/uL 4.4-11.0 [facility] Determination of erythrocyte mean corpuscular volume (MCV)Ordered By: Tab Dupont on 01-07-2024 MCV (RBC) [Entitic vol] 92.6 fL 80-94 [facility] Erythrocyte distribution wid th ratioOrdered By: Tab Dupont on 01-07-2024 Erythrocyte distribution width (RBC) [Ratio] 13.8 % 11.6-14.6 [facility] Erythrocyte distribution wid th standard deviationOrdered By: Tab Dupont on 01-07-2024 Erythrocyte distribution width (RBC) [Entitic vol] 46.5 fL 35.1-43.9 [facility] Hematocrit Auto (Bld) [Volum e fraction]Ordered By: Tab Dupont on 01-07-2024 Hematocrit (Bld) [Volume fraction] 38.9 % 40-54 [facility] Laboratory - Chemistry and C hemistry - challengeOrdered By: Tab Dupont on 01-07-2024 CO2 [Moles/Vol] 23.0 mmol/L 21.0-32.0 [facility] Urea nitrogen/Creatinine [Mass ratio] 25.5 mg/mg 10-20 [facility] Laboratory - Hematology and Cell countsOrdered By: Tab Dupont on 01-07-2024 MCH (RBC) [Entitic mass] 31.0 pg 27.0-32.0 [facility] MCHC (RBC) [Mass/Vol] 33.4 g/dL 32-36 [facility] Platelet mean volume (Bld) [Entitic vol] 10.2 fL 6.2-12.0 [facility] Platelets (Bld) [#/Vol] 282 10*3/uL 150-450 [facility] No Panel InformationOrdered By: Tab Dupont on 01-07-2024 Estimated GFR (MDRD) Amer 257 mL/min >60 [facility] Comment on above: GFR Calc Estimated GFR (MDRD) Non-Af Amer 212 mL/min >60 [facility] Comment on above: Non- GFR Calc RBC Auto (Bld) [#/Vol]Ordere d By: Tab Dupont on 01-07-2024 RBC (Bld) [#/Vol] 4.20 10*6/uL 4.6-6.2 [facility] Serum or plasma calcium randall urement (mass/volume)Ordered By: aTb Dupont on 01-07-2024 Calcium [Mass/Vol] 8.5 mg/dL 8.5-10.1 [facility] Serum or plasma creatinine m easurement (mass/volume)Ordered By: Tab Dupont on 01-07-2024 Creatinine [Mass/Vol] 0.43 mg/dL 0.70-1.30 [facility] Comment on above: The validity of the calculated GFR & GFRAA in patients over 70 years has not been determined. Clinical correlation is essential. Serum or plasma urea nitroge n measurement (mass/volume)Ordered By: Tab Dupont on 01-07-2024 Urea nitrogen [Mass/Vol] 11 mg/dL 7-18 [facility] Thin prep Papanicolaou smear with manual screeningOrdered By: Tab Dupont on 01-07-2024 Thin prep Papanicolaou smear with manual screening 5 5-15 [facility] Whole blood hemoglobin A1c/t otal hemoglobin ratio (mass fraction)Ordered By: Tab Dupont on 01-04-2024 HbA1c (Bld) [Mass fraction] 6.3 % 3.8-5.6 [facility] Comment on above: Normal < 5.7 % Predi abetic 5.7 - 6.4 % Diabetic >or= 6.5 % Please note range changes. Basophil percentageOrdered B y: Tab Dupont on 12-31-2023 Chloride [Moles/Vol] 107 mmol/L 98-107 [facility] Glucose [Mass/Vol] 145 mg/dL 74-106 [facility] Comment on above: Fasting Glucose resu lt greater than or equal to 126 mg/dL suggests DIABETES MELLITUS per A.D.A. criteria. Hemoglobin (Bld) [Mass/Vol] 12.5 g/dL 13.0-16.5 [facility] Potassium [Moles/Vol] 3.4 mmol/L 3.5-5.1 [facility] Sodium [Moles/Vol] 136 mmol/L 136-145 [facility] WBC (Bld) [#/Vol] 7.7 10*3/uL 4.4-11.0 [facility] Determination of erythrocyte mean corpuscular volume (MCV)Ordered By: Tab Dupont on 12-31-2023 MCV (RBC) [Entitic vol] 93.0 fL 80-94 [facility] Erythrocyte distribution wid th ratioOrdered By: Tab Dupont on 12-31-2023 Erythrocyte distribution width (RBC) [Ratio] 14.1 % 11.6-14.6 [facility] Erythrocyte distribution wid th standard deviationOrdered By: Tab Dupont on 12-31-2023 Erythrocyte distribution width (RBC) [Entitic vol] 48.5 fL 35.1-43.9 [facility] Hematocrit Auto (Bld) [Volum e fraction]Ordered By: Tab Dupont on 12-31-2023 Hematocrit (Bld) [Volume fraction] 37.0 % 40-54 [facility] Laboratory - Chemistry and C hemistry - challengeOrdered By: Tab Dupont on 12-31-2023 CO2 [Moles/Vol] 23.0 mmol/L 21.0-32.0 [facility] Urea nitrogen/Creatinine [Mass ratio] 29.1 mg/mg 10-20 [facility] Laboratory - Hematology and Cell countsOrdered By: Tab Dupont on 12-31-2023 MCH (RBC) [Entitic mass] 31.4 pg 27.0-32.0 [facility] MCHC (RBC) [Mass/Vol] 33.8 g/dL 32-36 [facility] Platelet mean volume (Bld) [Entitic vol] 11.0 fL 6.2-12.0 [facility] Platelets (Bld) [#/Vol] 199 10*3/uL 150-450 [facility] No Panel InformationOrdered By: Tab Dupont on 12-31-2023 Estimated GFR (MDRD) Amer 299 mL/min >60 [facility] Comment on above: GFR Calc Estimated GFR (MDRD) Non-Af Amer 247 mL/min >60 [facility] Comment on above: Non- GFR Calc RBC Auto (Bld) [#/Vol]Ordere d By: Tab Dupont on 12-31-2023 RBC (Bld) [#/Vol] 3.98 10*6/uL 4.6-6.2 [facility] Serum or plasma calcium randall urement (mass/volume)Ordered By: Tab Dupont on 12-31-2023 Calcium [Mass/Vol] 8.6 mg/dL 8.5-10.1 [facility] Serum or plasma creatinine m easurement (mass/volume)Ordered By: Tab Dupont on 12-31-2023 Creatinine [Mass/Vol] 0.38 mg/dL 0.70-1.30 [facility] Comment on above: The validity of the calculated GFR & GFRAA in patients over 70 years has not been determined. Clinical correlation is essential. Serum or plasma urea nitroge n measurement (mass/volume)Ordered By: Tab Dupont on 12-31-2023 Urea nitrogen [Mass/Vol] 11 mg/dL 7-18 [facility] Thin prep Papanicolaou smear with manual screeningOrdered By: Tab Dupont on 12-31-2023 Thin prep Papanicolaou smear with manual screening 6 5-15 [facility] Basophil percentageOrdered B y: Tab Dupont on 12-04-2023 Basophil percentage 25-50 SEEN /hpf 0-5 [facility] Bilirubin Test strip Ql (U)O rdered By: Tab Dupont on 12-04-2023 Bilirubin Ql (U) Negative Negative [facility] Calcium oxalate crystals det ection in urine sediment by light microscopyOrdered By: aTb Dupont on 12-04-2023 Calcium oxalate crystals LM Ql (Urine sed) 2+ /hpf [facility] Culture, urineOrdered By: Vinh Lehman on 12-04-2023 Bacteria identified Cx Nom (U) ESBL Klebsiella pneumoniae pne [facility] Bacteria identified Cx Nom (U) Proteus mirabilis [facility] Ketones Test strip Ql (U)Ord ered By: Tab Dupont on 12-04-2023 Ketones Ql (U) 5 mg/dl Negative [facility] Magnesium ammonium phosphate crystal detectionOrdered By: Tab Dupotn on 12-04-2023 Triple phosphate crystals LM Ql (Urine sed) 2+ /hpf [facility] Mucus LM Ql (Urine sed)Order ed By: Tab Dupont on 12-04-2023 Mucus Ql (Urine sed) 0 SEEN /hpf [facility] Nitrite Test strip Ql (U)Ord ered By: Tab Dupont on 12-04-2023 Nitrite Ql (U) Negative Negative [facility] No Panel InformationOrdered By: Tab Dupont on 12-04-2023 Urine RBC 10-25 SEEN /hpf 0-5 [facility] Protein Test strip Ql (U)Ord ered By: Tab Dupont on 12-04-2023 Protein Ql (U) 30 mg/dl Negative [facility] Squamous epithelial cells de tection in urine sediment by light microscopyOrdered By: Tab Dupont on 12-04-2023 Epithelial cells.squamous LM Ql (Urine sed) 0 SEEN /hpf 0-5 [facility] Urine blood detectionOrdered By: Tab Dupont on 12-04-2023 RBC Ql (U) 150 /ul Negative [facility] Urine clarityOrdered By: Regino Dupont on 12-04-2023 Clarity (U) Cloudy Clear [facility] Urine color determinationOrd ered By: Tab Dupont on 12-04-2023 Color (U) Yellow Yellow [facility] Urine glucose detectionOrder ed By: Tab Dupont on 12-04-2023 Glucose Ql (U) Normal mg/dl Normal [facility] Urine leukocyte esterase det ection by dipstickOrdered By: Tab Dupont on 12-04-2023 Leukocyte esterase Test strip Ql (U) 500 /ul Negative [facility] Urine pHOrdered By: Tab cordova on 12-04-2023 pH (U) 8.0 [pH] 5.0 - 8.0 [facility] Urine sediment bacteria coun t by microscopy (number/high power field)Ordered By: Tab Dupont on 12-04-2023 Bacteria LM.HPF (Urine sed) [#/Area] 3 /[HPF] None Seen [facility] Urine specific gravity measu rementOrdered By: Tab Dupont on 12-04-2023 Specific gravity (U) [Rel density] 1.015 1.002-1.030 [facility] Urine urobilinogen measureme ntOrdered By: Tab Dupont on 12-04-2023 Urobilinogen Ql (U) Normal mg/dl Normal [facility] Amorphous sediment detection in urine sediment by light microscopyOrdered By: Tab Dupont on 10-25-2023 Amorphous sediment LM Ql (Urine sed) 3+ [facility] Basophil percentageOrdered B y: Tab Dupont on 10-25-2023 Basophil percentage 0-5 SEEN /hpf 0-5 [facility] Bilirubin Test strip Ql (U)O rdered By: Tab Dupont on 10-25-2023 Bilirubin Ql (U) Negative Negative [facility] Culture, urineOrdered By: Vinh Lehman on 10-25-2023 Bacteria identified Cx Nom (U) ESBL Klebsiella pneumoniae pne [facility] Bacteria identified Cx Nom (U) Proteus mirabilis [facility] Ketones Test strip Ql (U)Ord ered By: Tab Dupont on 10-25-2023 Ketones Ql (U) Negative Negative [facility] Mucus LM Ql (Urine sed)Order ed By: Tab Dupont on 10-25-2023 Mucus Ql (Urine sed) 0 SEEN /hpf [facility] Nitrite Test strip Ql (U)Ord ered By: Tab Dupont on 10-25-2023 Nitrite Ql (U) Negative Negative [facility] No Panel InformationOrdered By: Tab Dupont on 10-25-2023 Urine RBC 0-5 SEEN /hpf 0-5 [facility] Protein Test strip Ql (U)Ord ered By: Tab Dupont on 10-25-2023 Protein Ql (U) 500 mg/dl Negative [facility] Squamous epithelial cells de tection in urine sediment by light microscopyOrdered By: Tab Dupont on 10-25-2023 Epithelial cells.squamous LM Ql (Urine sed) 0 SEEN /hpf 0-5 [facility] Urine blood detectionOrdered By: Tab Dupont on 10-25-2023 RBC Ql (U) 150 /ul Negative [facility] Urine clarityOrdered By: Regino Dupont on 10-25-2023 Clarity (U) Cloudy Clear [facility] Urine color determinationOrd ered By: Tab Dupont on 10-25-2023 Color (U) YELLOW Yellow [facility] Urine glucose detectionOrder ed By: Tab Dupont on 10-25-2023 Glucose Ql (U) Normal mg/dl Normal [facility] Urine leukocyte esterase det ection by dipstickOrdered By: Tab Dupont on 10-25-2023 Leukocyte esterase Test strip Ql (U) 500 /ul Negative [facility] Urine pHOrdered By: Tab cordova on 10-25-2023 pH (U) 8.0 [pH] 5.0 - 8.0 [facility] Urine sediment bacteria coun t by microscopy (number/high power field)Ordered By: Tab Dupont on 10-25-2023 Bacteria LM.HPF (Urine sed) [#/Area] 1 /[HPF] None Seen [facility] Urine sediment uric acid cry stal count by microscopy (number/high power field)Ordered By: Tab Dupont on 10-25-2023 Urate crystals LM.HPF (Urine sed) [#/Area] 3 /[HPF] [facility] Urine specific gravity measu rementOrdered By: Tab Dupont on 10-25-2023 Specific gravity (U) [Rel density] 1.010 1.002-1.030 [facility] Urine urobilinogen measureme ntOrdered By: Tab Dupont on 10-25-2023 Urobilinogen Ql (U) Normal mg/dl Normal [facility] Whole blood hemoglobin A1c/t otal hemoglobin ratio (mass fraction)Ordered By: Tab Dupont on 08-10-2023 HbA1c (Bld) [Mass fraction] 6.2 % 3.8-5.6 [facility] Comment on above: Normal < 5.7 % Predi abetic 5.7 - 6.4 % Diabetic >or= 6.5 % Please note range changes. Whole blood hemoglobin A1c/t otal hemoglobin ratio (mass fraction)Ordered By: Tab Dupont on 08-07-2023 HbA1c (Bld) [Mass fraction] 6.2 % 3.8-5.6 [facility] Comment on above: Normal < 5.7 % Predi abetic 5.7 - 6.4 % Diabetic >or= 6.5 % Please note range changes. Amorphous sediment detection in urine sediment by light microscopyOrdered By: Tab Dupont on 07-31-2023 Amorphous sediment LM Ql (Urine sed) 2+ [facility] Basophil percentageOrdered B y: Tab Dupont on 07-31-2023 Basophil percentage 50-100 SEEN /hpf 0-5 [facility] Bilirubin Test strip Ql (U)O rdered By: Tab Dupont on 07-31-2023 Bilirubin Ql (U) Negative Negative [facility] Culture, urineOrdered By: Vinh Lehman on 07-31-2023 Bacteria identified Cx Nom (U) ESBL Klebsiella pneumoniae pne [facility] Bacteria identified Cx Nom (U) Proteus mirabilis [facility] Ketones Test strip Ql (U)Ord ered By: Tab Dupont on 07-31-2023 Ketones Ql (U) Negative Negative [facility] Mucus LM Ql (Urine sed)Order ed By: Tab Dupont on 07-31-2023 Mucus Ql (Urine sed) 0 SEEN /hpf [facility] Nitrite Test strip Ql (U)Ord ered By: Tab Dupont on 07-31-2023 Nitrite Ql (U) Negative Negative [facility] Protein Test strip Ql (U)Ord ered By: Tab Dupont on 07-31-2023 Protein Ql (U) 30 mg/dl Negative [facility] Squamous epithelial cells de tection in urine sediment by light microscopyOrdered By: Tab Dupont on 07-31-2023 Epithelial cells.squamous LM Ql (Urine sed) 0 SEEN /hpf 0-5 [facility] Urine blood detectionOrdered By: Tab Dupont on 07-31-2023 RBC Ql (U) 250 /ul Negative [facility] RBC Ql (U) 10-25 SEEN /hpf 0-5 [facility] Urine clarityOrdered By: Regino Dupont on 07-31-2023 Clarity (U) Cloudy Clear [facility] Urine color determinationOrd ered By: Tab Dupont on 07-31-2023 Color (U) Yellow Yellow [facility] Urine glucose detectionOrder ed By: Tab Dupont on 07-31-2023 Glucose Ql (U) Normal mg/dl Normal [facility] Urine leukocyte esterase det ection by dipstickOrdered By: Tab Dupont on 07-31-2023 Leukocyte esterase Test strip Ql (U) 500 /ul Negative [facility] Urine pHOrdered By: Tab cordova on 07-31-2023 pH (U) 7.0 [pH] 5.0 - 8.0 [facility] Urine sediment bacteria coun t by microscopy (number/high power field)Ordered By: Tab Dupont on 07-31-2023 Bacteria LM.HPF (Urine sed) [#/Area] 0 /[HPF] None Seen [facility] Urine specific gravity measu rementOrdered By: Tab Dupont on 07-31-2023 Specific gravity (U) [Rel density] 1.010 1.002-1.030 [facility] Urobilinogen Auto test strip Ql (U)Ordered By: Tab Dupont on 07-31-2023 Urobilinogen Ql (U) Normal mg/dl Normal [facility] Basophil percentageOrdered B y: Tab Dupont on 06-29-2023 Chloride [Moles/Vol] 108 mmol/L 98-107 [facility] Glucose [Mass/Vol] 169 mg/dL 74-106 [facility] Comment on above: Fasting Glucose resu lt greater than or equal to 126 mg/dL suggests DIABETES MELLITUS per A.D.A. criteria. Potassium [Moles/Vol] 3.4 mmol/L 3.5-5.1 [facility] Sodium [Moles/Vol] 139 mmol/L 136-145 [facility] WBC (Bld) [#/Vol] 6.4 10*3/uL 4.4-11.0 [facility] Blood erythrocytes count (nu mber/volume)Ordered By: Tab Dupont on 06-29-2023 RBC (Bld) [#/Vol] 4.05 10*6/uL 4.6-6.2 [facility] Blood hemoglobin measurement (mass/volume)Ordered By: Tab Dupont on 06-29-2023 Hemoglobin (Bld) [Mass/Vol] 12.6 g/dL 13.0-16.5 [facility] Blood platelet mean volumeOr dered By: Tab Dupont on 06-29-2023 Platelet mean volume (Bld) [Entitic vol] 10.0 fL 6.2-12.0 [facility] Determination of erythrocyte mean corpuscular volume (MCV)Ordered By: Tab Dupont on 06-29-2023 MCV (RBC) [Entitic vol] 97.3 fL 80-94 [facility] Hematocrit Auto (Bld) [Volum e fraction]Ordered By: Tab Dupont on 06-29-2023 Hematocrit (Bld) [Volume fraction] 39.4 % 40-54 [facility] - Chemistry and C hemistry - challengeOrdered By: Tab Dupont on 06-29-2023 CO2 [Moles/Vol] 24.0 mmol/L 21.0-32.0 [facility] Urea nitrogen/Creatinine [Mass ratio] 28.8 mg/mg 10-20 [facility] - Hematology and Cell countsOrdered By: Tab Dupont on 06-29-2023 Erythrocyte distribution width (RBC) [Entitic vol] 48.6 fL 35.1-43.9 [facility] Erythrocyte distribution width (RBC) [Ratio] 13.6 % 11.6-14.6 [facility] MCH (RBC) [Entitic mass] 31.1 pg 27.0-32.0 [facility] MCHC Auto (RBC) [Mass/Vol]Or dered By: Tab Dupont on 06-29-2023 MCHC (RBC) [Mass/Vol] 32.0 g/dL 32-36 [facility] No Panel InformationOrdered By: Tab Dupont on 06-29-2023 Estimated GFR (MDRD) Amer 207 mL/min >60 [facility] Comment on above: GFR Calc Estimated GFR (MDRD) Non-Af Amer 171 mL/min >60 [facility] Comment on above: Non- GFR Calc Platelets bldOrdered By: Regino Dupont on 06-29-2023 Platelets (Bld) [#/Vol] 243 10*3/uL 150-450 [facility] Serum or plasma calcium randall urement (mass/volume)Ordered By: Tab Dupont on 06-29-2023 Calcium [Mass/Vol] 8.3 mg/dL 8.5-10.1 [facility] Serum or plasma creatinine m easurement (mass/volume)Ordered By: Tab Dupont on 06-29-2023 Creatinine [Mass/Vol] 0.52 mg/dL 0.70-1.30 [facility] Comment on above: The validity of the calculated GFR & GFRAA in patients over 70 years has not been determined. Clinical correlation is essential. Serum or plasma urea nitroge n measurement (mass/volume)Ordered By: Tab Dupont on 06-29-2023 Urea nitrogen [Mass/Vol] 15 mg/dL 7-18 [facility] Thin prep Papanicolaou smear with manual screeningOrdered By: Tab Dupont on 06-29-2023 Thin prep Papanicolaou smear with manual screening 7 5-15 [facility] Basophil percentageOrdered B y: Tab Dupont on 06-01-2023 Chloride [Moles/Vol] 112 mmol/L 98-107 [facility] Glucose [Mass/Vol] 133 mg/dL 74-106 [facility] Comment on above: Fasting Glucose resu lt greater than or equal to 126 mg/dL suggests DIABETES MELLITUS per A.D.A. criteria. Potassium [Moles/Vol] 3.8 mmol/L 3.5-5.1 [facility] Sodium [Moles/Vol] 141 mmol/L 136-145 [facility] WBC (Bld) [#/Vol] 6.8 10*3/uL 4.4-11.0 [facility] Blood erythrocytes count (nu mber/volume)Ordered By: Tab Dupont on 06-01-2023 RBC (Bld) [#/Vol] 3.96 10*6/uL 4.6-6.2 [facility] Blood hemoglobin measurement (mass/volume)Ordered By: Tab Dupont on 06-01-2023 Hemoglobin (Bld) [Mass/Vol] 12.7 g/dL 13.0-16.5 [facility] Blood platelet mean volumeOr dered By: Tab Dupont on 06-01-2023 Platelet mean volume (Bld) [Entitic vol] 10.1 fL 6.2-12.0 [facility] Determination of erythrocyte mean corpuscular volume (MCV)Ordered By: Tab Dupont on 06-01-2023 MCV (RBC) [Entitic vol] 99.7 fL 80-94 [facility] Hematocrit Auto (Bld) [Volum e fraction]Ordered By: Tab Dupont on 06-01-2023 Hematocrit (Bld) [Volume fraction] 39.5 % 40-54 [facility] - Chemistry and C hemistry - challengeOrdered By: Tab Dupont on 06-01-2023 CO2 [Moles/Vol] 25.0 mmol/L 21.0-32.0 [facility] Urea nitrogen/Creatinine [Mass ratio] 29.2 mg/mg 10-20 [facility] - Hematology and Cell countsOrdered By: Tab Dupont on 06-01-2023 Erythrocyte distribution width (RBC) [Entitic vol] 54.3 fL 35.1-43.9 [facility] Erythrocyte distribution width (RBC) [Ratio] 14.6 % 11.6-14.6 [facility] MCH (RBC) [Entitic mass] 32.1 pg 27.0-32.0 [facility] MCHC Auto (RBC) [Mass/Vol]Or dered By: Tab Dupont on 06-01-2023 MCHC (RBC) [Mass/Vol] 32.2 g/dL 32-36 [facility] No Panel InformationOrdered By: Tab Dupont on 06-01-2023 Estimated GFR (MDRD) Amer 227 mL/min >60 [facility] Comment on above: GFR Calc Estimated GFR (MDRD) Non-Af Amer 188 mL/min >60 [facility] Comment on above: Non- GFR Calc Platelets bldOrdered By: Regino Dupont on 06-01-2023 Platelets (Bld) [#/Vol] 274 10*3/uL 150-450 [facility] Serum or plasma calcium randall urement (mass/volume)Ordered By: Tab Dupont on 06-01-2023 Calcium [Mass/Vol] 8.5 mg/dL 8.5-10.1 [facility] Serum or plasma creatinine m easurement (mass/volume)Ordered By: Tab Dupont on 06-01-2023 Creatinine [Mass/Vol] 0.48 mg/dL 0.70-1.30 [facility] Comment on above: The validity of the calculated GFR & GFRAA in patients over 70 years has not been determined. Clinical correlation is essential. Serum or plasma urea nitroge n measurement (mass/volume)Ordered By: Tab Dupont on 06-01-2023 Urea nitrogen [Mass/Vol] 14 mg/dL 7-18 [facility] Thin prep Papanicolaou smear with manual screeningOrdered By: Tab Dupont on 06-01-2023 Thin prep Papanicolaou smear with manual screening 4 5-15 [facility] Urinalysis complete panel (U )Ordered By: Darya Nazario on 05-23-2023 Bacteria LM.HPF (Urine sed) [#/Area] Moderate Abnormal Negative /HPF [facility] Bilirubin Ql (U) Negative Negative mg/dL [facility] Clarity (U) Extra Turbid Abnormal Clear [facility] Color (U) Yellow Lt. Yellow [facility] Epithelial cells.squamous LM.HPF (Urine sed) [#/Area] 0-2 [facility] h Glucose Ql (U) Normal Normal (<70) mg/dL [facility] Hemoglobin Ql (U) 0.1 mg/dL Abnormal Negative [facility] ealth Interpretation and review of laboratory results Abnormal [facility] Ketones (U) [Mass/Vol] Negative Negat mary grace mg/dL [facility] Leukocyte clumps LM.HPF (Urine sed) [#/Area] Moderate Abnormal Negative /HPF [facility] Leukocyte esterase Test strip Ql (U) 500 Abnormal Negative Da/uL [facility] Mucus LM.HPF (Urine sed) [#/Area] Few Negative /LPF [facility] Nitrite Ql (U) Positive Abnormal Negative [facility] th pH (U) 8.0 [pH] 5.0 - 8.0 pH [facility] Protein (U) [Mass/Vol] 100 mg/dL Abnormal Negative [facility] RBC LM.HPF (Urine sed) [#/Area] /[HPF] Abnormal [facility] Specific gravity (U) [Rel density] 1.014 1.005 - 1.030 [facility] Triple phosphate crystals LM.HPF (Urine sed) [#/Area] Moderate Abnormal Negative /HPF [facility] Urobilinogen (U) [Mass/Vol] Normal Normal (0-1) mg/dL [facility] WBC LM.HPF (Urine sed) [#/Area] /[HPF] Abnormal [facility] Basophil percentageOrdered B y: Tab Dupont on 05-04-2023 Bilirubin [Mass/Vol] 0.20 mg/dL 0.20-1.00 [facility] Comment on above: For patients on eltr ombopag therapy, use of Dimension [place] TBIL is not recommended. Chloride [Moles/Vol] 109 mmol/L 98-107 [facility] Glucose [Mass/Vol] 183 mg/dL 74-106 [facility] Comment on above: Fasting Glucose resu lt greater than or equal to 126 mg/dL suggests DIABETES MELLITUS per A.D.A. criteria. Potassium [Moles/Vol] 4.0 mmol/L 3.5-5.1 [facility] Protein [Mass/Vol] 6.0 g/dL 6.4-8.2 [facility] Sodium [Moles/Vol] 139 mmol/L 136-145 [facility] WBC (Bld) [#/Vol] 6.7 10*3/uL 4.4-11.0 [facility] Blood erythrocytes count (nu mber/volume)Ordered By: Tab Dupont on 05-04-2023 RBC (Bld) [#/Vol] 3.31 10*6/uL 4.6-6.2 [facility] Blood hemoglobin measurement (mass/volume)Ordered By: Tab Dupont on 05-04-2023 Hemoglobin (Bld) [Mass/Vol] 10.2 g/dL 13.0-16.5 [facility] Blood platelet mean volumeOr dered By: Tab Dupont on 05-04-2023 Platelet mean volume (Bld) [Entitic vol] 10.2 fL 6.2-12.0 [facility] Determination of erythrocyte mean corpuscular volume (MCV)Ordered By: Tab Dupont on 05-04-2023 MCV (RBC) [Entitic vol] 99.1 fL 80-94 [facility] Hematocrit Auto (Bld) [Volum e fraction]Ordered By: Tab Dupont on 05-04-2023 Hematocrit (Bld) [Volume fraction] 32.8 % 40-54 [facility] - Chemistry and C hemistry - challengeOrdered By: Tab Dupont on 05-04-2023 ALP [Catalytic activity/Vol] 104 U/L 45-117 [facility] ALT [Catalytic activity/Vol] 17 U/L 16-61 [facility] CO2 [Moles/Vol] 26.0 mmol/L 21.0-32.0 [facility] Globulin (S) [Mass/Vol] 3.8 g/dL 2.2-4.2 [facility] Urea nitrogen/Creatinine [Mass ratio] 21.9 mg/mg 10-20 [facility] - Hematology and Cell countsOrdered By: Tab Dupont on 05-04-2023 Erythrocyte distribution width (RBC) [Entitic vol] 48.8 fL 35.1-43.9 [facility] Erythrocyte distribution width (RBC) [Ratio] 13.5 % 11.6-14.6 [facility] MCH (RBC) [Entitic mass] 30.8 pg 27.0-32.0 [facility] MCHC Auto (RBC) [Mass/Vol]Or dered By: Tab Dupont on 05-04-2023 MCHC (RBC) [Mass/Vol] 31.1 g/dL 32-36 [facility] No Panel InformationOrdered By: Tab Dupont on 05-04-2023 Estimated GFR (MDRD) Amer 195 mL/min >60 [facility] Comment on above: GFR Calc Estimated GFR (MDRD) Non-Af Amer 161 mL/min >60 [facility] Comment on above: Non- GFR Calc Platelets bldOrdered By: Regino Dupont on 05-04-2023 Platelets (Bld) [#/Vol] 290 10*3/uL 150-450 [facility] Serum or plasma albumin randall urement (mass/volume)Ordered By: Tab Dupont on 05-04-2023 Albumin [Mass/Vol] 2.2 g/dL 3.2-5.0 [facility] Serum or plasma albumin/glob ulin mass ratioOrdered By: Tab Dupont on 05-04-2023 Albumin/Globulin [Mass ratio] 0.6 {ratio} 0.9-2.4 [facility] Serum or plasma calcium randall urement (mass/volume)Ordered By: Tab Dupont on 05-04-2023 Calcium [Mass/Vol] 8.4 mg/dL 8.5-10.1 [facility] Serum or plasma creatinine m easurement (mass/volume)Ordered By: Tab Dupont on 05-04-2023 Creatinine [Mass/Vol] 0.55 mg/dL 0.70-1.30 [facility] Comment on above: The validity of the calculated GFR & GFRAA in patients over 70 years has not been determined. Clinical correlation is essential. Serum or plasma urea nitroge n measurement (mass/volume)Ordered By: Tab Dupont on 05-04-2023 Urea nitrogen [Mass/Vol] 12 mg/dL 7-18 [facility] Thin prep Papanicolaou smear with manual screeningOrdered By: Tab Dupont on 05-04-2023 Thin prep Papanicolaou smear with manual screening 16 U/L 15-37 [facility] Thin prep Papanicolaou smear with manual screening 4 5-15 [facility] Basophil percentageOrdered B y: Tab Dupont on 03-25-2023 Bilirubin [Mass/Vol] 0.30 mg/dL 0.20-1.00 [facility] Comment on above: For patients on eltr ombopag therapy, use of [place] TBIL is not recommended. Chloride [Moles/Vol] 107 mmol/L 98-107 [facility] Cholesterol [Mass/Vol] 163 mg/dL <200 [facility] Comment on above: <200 mg/dL Desirable 200-240 mg/dL Borderline >240 mg/dL High Risk Glucose [Mass/Vol] 119 mg/dL 74-106 [facility] Comment on above: Fasting Glucose resu lt from 100 to 125 mg/dL suggests IMPAIRED HOMEOSTASIS per A.D.A. criteria. Potassium [Moles/Vol] 3.6 mmol/L 3.5-5.1 [facility] Protein [Mass/Vol] 6.7 g/dL 6.4-8.2 [facility] Sodium [Moles/Vol] 137 mmol/L 136-145 [facility] Triglyceride [Mass/Vol] 139 mg/dL <199 [facility] Comment on above: The drugs N-Acetylcy steine and Metamizole may falsely depress this assay.Serum Triglycerides Reference Interval Normal <150 mg/dL Borderline high 150 - 199 mg/dL High 200 - 499 mg/dL Very High > or = 500 mg/dL WBC (Bld) [#/Vol] 6.8 10*3/uL 4.4-11.0 [facility] Blood erythrocytes count (nu mber/volume)Ordered By: Tab Dupont on 03-25-2023 RBC (Bld) [#/Vol] 3.71 10*6/uL 4.6-6.2 [facility] Blood hemoglobin measurement (mass/volume)Ordered By: Tab Dupont on 03-25-2023 Hemoglobin (Bld) [Mass/Vol] 11.6 g/dL 13.0-16.5 [facility] Blood platelet mean volumeOr dered By: Tab Dupont on 03-25-2023 Platelet mean volume (Bld) [Entitic vol] 9.9 fL 6.2-12.0 [facility] Determination of erythrocyte mean corpuscular volume (MCV)Ordered By: Tab Dupont on 03-25-2023 MCV (RBC) [Entitic vol] 99.5 fL 80-94 [facility] Hematocrit Auto (Bld) [Volum e fraction]Ordered By: Tab Dupont on 03-25-2023 Hematocrit (Bld) [Volume fraction] 36.9 % 40-54 [facility] - Chemistry and C hemistry - challengeOrdered By: Tab Dupont on 03-25-2023 ALP [Catalytic activity/Vol] 121 U/L 45-117 [facility] ALT [Catalytic activity/Vol] 18 U/L 16-61 [facility] CO2 [Moles/Vol] 23.0 mmol/L 21.0-32.0 [facility] Globulin (S) [Mass/Vol] 4.3 g/dL 2.2-4.2 [facility] Urea nitrogen/Creatinine [Mass ratio] 22.6 mg/mg 10-20 [facility] - Hematology and Cell countsOrdered By: Tab Dupont on 03-25-2023 Erythrocyte distribution width (RBC) [Entitic vol] 50.3 fL 35.1-43.9 [facility] Erythrocyte distribution width (RBC) [Ratio] 13.5 % 11.6-14.6 [facility] MCH (RBC) [Entitic mass] 31.3 pg 27.0-32.0 [facility] MCHC Auto (RBC) [Mass/Vol]Or dered By: Tab Dupnot on 03-25-2023 MCHC (RBC) [Mass/Vol] 31.4 g/dL 32-36 [facility] No Panel InformationOrdered By: Tab Dupont on 03-25-2023 Estimated GFR (MDRD) Amer 250 mL/min >60 [facility] Comment on above: GFR Calc Estimated GFR (MDRD) Non-Af Amer 207 mL/min >60 [facility] Comment on above: Non- GFR Calc Prostate Specific Antigen Screen 0.59 ng/mL 0.00-4.00 [facility] Comment on above: This test was perfor med using the TPSA assay method for theDynadmic chemistry system. Values obtained with differentassay methods cannot be used interchangably.When changing PSA assays in the course of monitoring apatient, additional sequential testing should be carriedout to confirm baseline values. Thyroid Stimulating Hormone (TSH) 3.33 uIU/mL 0.358-3.74 [facility] Platelets bldOrdered By: Regino Dupont on 03-25-2023 Platelets (Bld) [#/Vol] 301 10*3/uL 150-450 [facility] Serum or plasma albumin randall urement (mass/volume)Ordered By: Tab Dupont on 03-25-2023 Albumin [Mass/Vol] 2.4 g/dL 3.2-5.0 [facility] Serum or plasma albumin/glob ulin mass ratioOrdered By: Tab Dupont on 03-25-2023 Albumin/Globulin [Mass ratio] 0.6 {ratio} 0.9-2.4 [facility] Serum or plasma calcium randall urement (mass/volume)Ordered By: Tab Dupont on 03-25-2023 Calcium [Mass/Vol] 8.7 mg/dL 8.5-10.1 [facility] Serum or plasma cholesterol in HDL measurement (mass/volume)Ordered By: Tab Dupont on 03-25-2023 Cholesterol in HDL [Mass/Vol] 27 mg/dL >40 [facility] Comment on above: The drugs N-Acetylcy steine and Metamizole may falsely depress this assay. Reference Range HDL <40 mg/dL Low HDL Cholesterol HDL >or= 60 mg/dL High HDL Cholesterol Serum or plasma cholesterol in VLDL measurement (mass/volume)Ordered By: Tab Dupont on 03-25-2023 Cholesterol in VLDL [Mass/Vol] 28 mg/dL 5-40 [facility] Serum or plasma creatinine m easurement (mass/volume)Ordered By: Tab Dupont on 03-25-2023 Creatinine [Mass/Vol] 0.44 mg/dL 0.70-1.30 [facility] Comment on above: The validity of the calculated GFR & GFRAA in patients over 70 years has not been determined. Clinical correlation is essential. Serum or plasma low density lipoprotein (LDL) cholesterol measurement (mass/volume)Ordered By: Tab Dupont on 03-25-2023 Cholesterol in LDL [Mass/Vol] 108 mg/dL 0-130 [facility] Serum or plasma urea nitroge n measurement (mass/volume)Ordered By: Tab Dupont on 03-25-2023 Urea nitrogen [Mass/Vol] 10 mg/dL 7-18 [facility] Thin prep Papanicolaou smear with manual screeningOrdered By: Tab Dupont on 03-25-2023 Thin prep Papanicolaou smear with manual screening 13 U/L 15-37 [facility] Thin prep Papanicolaou smear with manual screening 7 5-15 [facility] CNPNon 12-02-2021 CNPN Telephone (HCSIND) ANMOL REYNOLDS ([id number]) 1960 M Date Time Provider Department 12/02/21 [...] (Blistex) - sodium chloride 0.65 % 2 [place] (AYR, OCEAN) - saliva substitute combo no.9 [...] Of Date 12/02/2021 Noted Resolved NO SHOW [[id number]] 08/31/2013 05/29/2020 Perineal abscess [L02.215] 06/13/2019 05/29/2020 [...] Encounter Status:Closed by VITALY SMALLWOOD on 12/02/21 [facility] Telephone (HCSIND) ANMOL REYNOLDS ([id number]) 1960 Date Time Provider Department 12/02/21 VITALY SMALLWOOD HCSIND During your visit today, we recorded the following information about you: Vitaly Smallwood LPN 12/02/2021 9:05 AM Signed Ambrosio Monroy, DO Please advise if you are agreeable to signing and following for [facility] services? Our Clinicians will be sending the Plan of Care to you for review and approval. They will reach out for any appropriate orders required to provide home care services for the patient. We are not able to initiate [facility] services without a following provider. Thank you [...] (Blistex) - sodium chloride 0.65 % 2 [place] (AYR, OCEAN) - saliva substitute combo no.9 [...] Of Date 12/02/2021 Noted Resolved NO SHOW [[id number]] 08/31/2013 05/29/2020 Perineal abscess [L02.215] 06/13/2019 05/29/2020 [...] [facility] (more content not included)... [facility] ANM[facility]YN[facility] ([id number]) 1960 M Date Time Provider Department 12/02/21 VITALY SMALLWOOD During your visit today, we recorded the following information about you: Vitaly Smallwood LPN 12/02/2021 9:06 AM Signed Please advise if you are agreeable to signing and following for [facility] services? Our Clinicians will be sending [...] Allergies) Date Reviewed: 11/30/2021 Reviewed by: Sulma uHrst RN - Fully Assessed Reason for Visit: [...] (Blistex) - sodium chloride 0.65 % 2 Basalt (AYR, OCEAN) - saliva substitute combo no.9 [...] Of Date 12/02/2021 Noted Resolved NO SHOW [[id number]] 08/31/2013 05/29/2020 Perineal abscess [L02.215] 06/13/2019 05/29/2020 [...] Status:Closed by VITALY SMALLWOOD on 12/02/21 Normal [facility] ANTISMOOTH MUSCLE ABon 10-15 ANTISMOOTH MUSCLE AB Negative Normal NEGATIVE [facility] Comment on above: Performed By: #### A SMAB #### [facility] [address] [place] [address] SEEMA-WITH REFLEX TO ENAon SEEMA WITH REFLEX TO AYDEE Negative Normal NEGATIVE [facility] Comment on above: Result Comment: The Antinuclear Antibody (SEEMA) test was performed using indirect immunofluorescence assay with HEp-2 cells slide. Performed By: #### A NA2 #### [facility] [id number] [place] [address] COMPREHENSIVE PANELon 2021 Glucose [Mass/Vol] 916 mg/dL Critically high 74 - 99 [facility] Comment on above: Order Comment: READ BACK CRIT GLU TO [place]ED [place], 10/12/2021 00:08 Result Comment: READ BACK CRIT GLU TO [place], 10/12/2021 00:08 Performed By: #### C MP #### [facility] [address] [place] [address] Albumin [Mass/Vol] 3.9 g/dL Normal 3.4 - 5.0 [facility] [place] Comment on above: Order Comment: READ BACK CRIT GLU TO [place], 10/12/2021 00:08 Performed By: #### C MP #### [facility] [address] [place] [address] ALP [Catalytic activity/Vol] 235 U/L High 33 - 136 [facility] Comment on above: Order Comment: READ BACK CRIT GLU TO [place]AREED [place], 10/12/2021 00:08 Performed By: #### C MP #### [facility] [address] [place] [address] ALT [Catalytic activity/Vol] 192 U/L High 10 - 52 [facility] Comment on above: Order Comment: READ BACK CRIT GLU TO [place], 10/12/2021 00:08 Result Comment: Blanca ents treated with Sulfasalazine may generate falsely decreased results for ALT. Performed By: #### C MP #### [facility] [address] [place] [address] Anion gap [Moles/Vol] 16 mmol/L Normal 10 - 20 [facility] Comment on above: Order Comment: READ BACK CRIT GLU TO [place], 10/12/2021 00:08 Performed By: #### C MP #### [facility] [address] [place] [address] AST [Catalytic activity/Vol] 141 U/L High 9 - 39 [facility] Comment on above: Order Comment: READ BACK CRIT GLU TO [place], 10/12/2021 00:08 Performed By: #### C MP #### [facility] [address] [place] [address] Bilirubin [Mass/Vol] 0.7 mg/dL Normal 0.0 - 1.2 [facility] Comment on above: Order Comment: READ BACK CRIT GLU TO [place], 10/12/2021 00:08 Performed By: #### C MP #### [facility] [address] [place] [address] Calcium [Mass/Vol] 9.0 mg/dL Normal 8.6 - 10.6 [facility] [place] Comment on above: Order Comment: READ BACK CRIT GLU TO [place], 10/12/2021 00:08 Performed By: #### C MP #### [facility] [address] [place] [address] Chloride [Moles/Vol] 91 mmol/L Low 98 - 107 [facility] Comment on above: Order Comment: READ BACK CRIT GLU TO [place], 10/12/2021 00:08 Performed By: #### C MP #### [facility] [address] [place] [address] Creatinine [Mass/Vol] 0.62 mg/dL Normal 0.50 - 1.30 [facility] Comment on above: Order Comment: READ BACK CRIT GLU TO [place], 10/12/2021 00:08 Performed By: #### C MP #### [facility] [address] [place] [address] eGFR MALE >90 Normal >90 [facility] Comment on above: Order Comment: READ BACK CRIT GLU TO [place], 10/12/2021 00:08 Result Comment: CALC ULATIONS OF ESTIMATED GFR ARE PERFORMED USING THE 2020 CKD-EPI STUDY REFIT EQUATION WITHOUT THE RACE VARIABLE FOR THE IDMS-TRACEABLE CREATININE METHODS. https://jasn.asnjournals.org/content/early//ASN.688 9149500 Performed By: #### C MP #### [facility] [address] [place] [address] HCO3 (Bld) [Moles/Vol] 25 mmol/L Normal 21 - 32 [facility] Comment on above: Order Comment: READ BACK CRIT GLU TO [place], 10/12/2021 00:08 Performed By: #### C MP #### [facility] [address] [place] [address] Potassium [Moles/Vol] 4.5 mmol/L Normal 3.5 - 5.3 [facility] Comment on above: Order Comment: READ BACK CRIT GLU TO [place], 10/12/2021 00:08 Performed By: #### C MP #### [facility] [address] [place] [address] Protein [Mass/Vol] 5.9 g/dL Low 6.4 - 8.2 [facility] [place] Comment on above: Order Comment: READ BACK CRIT GLU TO [place], 10/12/2021 00:08 Performed By: #### C MP #### [facility] [address] [place] [address] Sodium [Moles/Vol] 127 mmol/L Low 136 - 145 [facility] [place] Comment on above: Order Comment: READ BACK CRIT GLU TO [place], 10/12/2021 00:08 Performed By: #### C MP #### [facility] [address] [place] [address] Urea nitrogen [Mass/Vol] 14 mg/dL Normal 6 - 23 [facility] Comment on above: Order Comment: READ BACK CRIT GLU TO [place], 10/12/2021 00:08 Performed By: #### C MP #### [facility] [address] [place] [address] FERRITINon 10-12-2021 FERRITIN 1311 ug/L High 20 - 300 [facility] Comment on above: Performed By: #### F ERRI #### [facility] [address] [place] [address] IGG SUBCLASS 4on 10-12-2021 IGG SUBCLASS 4 25 mg/dL Normal 3 - 200 [facility] Comment on above: Performed By: #### I GGG4 #### [facility] [address] [place] [address] IRON + TIBCon 10-12-2021 % SATURATION 70 % High 25 - 45 [facility] Comment on above: Performed By: #### I RONT #### [facility] [address] [place] [address] Iron [Mass/Vol] 180 ug/dL High 35 - 150 [facility] Comment on above: Performed By: #### I RONT #### [facility] [address] [place] [address] TIBC 257 ug/dL Normal 240 - 445 [facility] Comment on above: Performed By: #### I RONT #### [facility] [address] [place] [address] CNPNon 09-10-2021 CNPN Telephone (PODCCP) GIVENANMOL ([id number]) 1960 M Date Time Provider Department 09/10/21 NEHEMIAS MCMANUS PODCC During your visit today, we recorded the [...] Of Date 09/10/2021 Noted Resolved NO SHOW [207154] 08/31/2013 05/29/2020 Perineal abscess [L02.215] 06/13/2019 05/29/2020 [...] Encounter Status:Closed by NEHEMIAS MCMANUS on 09/10/21 [facility] Sahil 08-14-2021 SHANTANU Telephone (GENDENIS) ANMOL [id number]) 1960 M Date Time Provider Department 08/14/21 PENNY CAMERON During your visit today, we recorded the following information about you: Brynn Mxawell 08/14/2021 10:35 AM Signed Patient calling to [...] Of Date 08/14/2021 Noted Resolved NO SHOW [[id number]] 08/31/2013 05/29/2020 Perineal abscess [L02.215] 06/13/2019 05/29/2020 Nicotine use disorder, F17.2 [F17.200] 06/14/2019 Pilonidal cyst without abscess [L05.91] 05/29/2020 Pilonidal cyst with abscess [L05.01] 12/31/2020 Perirectal abscess [K61.1] 01/16/2021 Diabetes (HCC) [E11.9] 01/18/2021 Encounter Status:Closed by BRYNN GRIMES on 08/14/21 [facility] Sahil 08-09-2021 CNPN Telephone (BERNARDINOSilas) GIVENANMOL ([id number]) 1960 M Date Time Provider Department 08/09/21 PENNY CAMERON During your visit today, we recorded the following information about you: Byron Espinal RN 08/09/2021 2:56 PM Signed Records received from [facility] Records labeled and placed in records folder near [facility] Allergies As of Date: 08/09/2021 (No Known Allergies) Date Reviewed: 08/08/2021 Reviewed by: Penny Cameron MD - Fully Assessed Reason for Visit: Received Outside Medical Records [[id number]] Prescriptions as of 08/23/2021 - gabapentin (NEURONTIN) [...] Of Date 08/09/2021 Noted Resolved NO SHOW [[id number]] 08/31/2013 05/29/2020 Perineal abscess [L02.215] 06/13/2019 05/29/2020 Nicotine use disorder, F17.2 [F17.200] 06/14/2019 Pilonidal cyst without abscess [L05.91] 05/29/2020 Pilonidal cyst with abscess [L05.01] 12/31/2020 Perirectal abscess [K61.1] 01/16/2021 Diabetes (HCC) [E11.9] 01/18/2021 Encounter Status:Closed by BYRON ESPINAL RN on 08/23/21 [facility] CNOVon 08-05-2021 CNOV Office Visit (GENSME ) GAILANMOL ([id number]) 1960 Jamie Date Time Provider Department 08/05/21 [...] at 1 (more content not included)... Normal [facility] CA 19-9on 05-23-2021 CA 19-9 284 U/mL High <36 [facility] Comment on above: Performed By: #### C A199 #### [facility] [address] [place], [place] [address] #### TSH, FT4, FREET3 #### [facility] Routine Lab [address] [place], [place] [address] Free T3on 05-22-2021 Free T3 [Mass/Vol] 1.7 pg/mL Low 2.3-4.1 [facility] Comment on above: Performed By: #### C A199 #### [facility] [address] [place], [place] [address] #### TSH, FT4, FREET3 #### [facility] Routine Lab [address] [place], [place] [address] Free T4on 05-22-2021 Free T4 [Mass/Vol] 1.2 ng/dL Normal 0.9-1.7 [facility] Comment on above: Performed By: #### C A199 #### [facility] [address] [place] [address] #### TSH, FT4, FREET3 #### [facility] Routine Lab [address] [place] [address] TSHon 05-22-2021 TSH Qn 1.450 m[IU]/L Normal 0.270-4.200 [facility] Comment on above: Performed By: #### C A199 #### [facility] Immunology [address] [place] [address] #### TSH, FT4, FREET3 #### [facility] Routine Lab [address] [place], [place] [id number] Basic Metabolic Panelon -2 Anion gap [Moles/Vol] 14 mmol/L Normal 9-15 [facility] Comment on above: Performed By: #### B MP #### [facility] [address] [place] [address] Calcium [Mass/Vol] 8.4 mg/dL Low 8.5-9.9 [facility] Comment on above: Performed By: #### B MP #### [facility] [address] [place] [address] Chloride [Moles/Vol] 100 mmol/L Normal 95-107 [facility] Comment on above: Performed By: #### B MP #### [facility] [address] [place] [address] CO2 [Moles/Vol] 23 mmol/L Normal 20-31 [facility] Comment on above: Performed By: #### B MP #### [facility] [address] [place] [address] Creatinine [Mass/Vol] 0.57 mg/dL Low 0.70-1.20 [facility] Comment on above: Performed By: #### B MP #### [facility] [address] [place] [address] GFR/1.73 sq M predicted among blacks MDRD (S/P/Bld) [Vol rate/Area] mL/min/{1.73_m2} Normal >60 [facility] Comment on above: Result Comment: >60 mL/min/1.73m2 EGFR, calc. for ages 18 and older using the MDRD formula (not corrected for weight), is valid for stable renal function. Performed By: #### B MP #### [facility] [address] [place] [address] GFR/1.73 sq M.predicted MDRD (S/P/Bld) [Vol rate/Area] mL/min/{1.73_m2} Normal >60 [facility] Comment on above: Result Comment: >60 mL/min/1.73m2 EGFR, calc. for ages 18 and older using the MDRD formula (not corrected for weight), is valid for stable renal function. Performed By: #### B MP #### [facility] [address] [place] [address] Glucose [Mass/Vol] 245 mg/dL Critically high 70-99 M [facility] Comment on above: Performed By: #### B MP #### [facility] [address] [place] [address] Potassium [Moles/Vol] 3.9 mmol/L Normal 3.4-4.9 [facility] Comment on above: Performed By: #### B MP #### [facility] [address] [place] [address] Sodium [Moles/Vol] 137 mmol/L Normal 135-144 [facility] Comment on above: Performed By: #### B MP #### [facility] [address] [place] [address] Urea nitrogen [Mass/Vol] 13 mg/dL Normal 6-20 [facility] Comment on above: Performed By: #### B MP #### [facility] [address] [place] [address] Anion gap [Moles/Vol] 14 mmol/L [place], [place] Calcium [Mass/Vol] 8.4 mg/dL Low 8.5 - 9.9 mg/dL [place], [place] Chloride [Moles/Vol] 100 mmol/L [place], [place] CO2 [Moles/Vol] 23 mmol/L [place], [place] Creatinine [Mass/Vol] 0.57 mg/dL Low 0.7 - 1.2 mg/dL [place] GFR >60.0 >60 [place], [place] Comment on above: >60 mL/min/1.73m2 EG FR, calc. for ages 18 and older using the MDRD formula (not corrected for weight), is valid for stable renal function. GFR Non- >60.0 >60 [place] Comment on above: >60 mL/min/1.73m2 EG FR, calc. for ages 18 and older using the MDRD formula (not corrected for weight), is valid for stable renal function. Glucose [Mass/Vol] 245 mg/dL High 70 - 99 mg/dL [place] Interpretation and review of laboratory results Abnormal [place] Potassium [Moles/Vol] 3.9 mmol/L [place] Sodium [Moles/Vol] 137 mmol/L [place] Urea nitrogen [Mass/Vol] 13 mg/dL 6 - 20 mg/dL [place] CBC Auto Differentialon 10-06 Basophils (Bld) [#/Vol] 0.0 10*3/uL 0 - 0.2 K/uL [place] Basophils/100 WBC (Bld) 0.4 % [place], [place] Eosinophils (Bld) [#/Vol] 0.2 10*3/uL 0 - 0.7 K/uL [place] Eosinophils/100 WBC (Bld) 1.6 % [place] Erythrocyte distribution width (RBC) [Ratio] 13.1 % 11.5 - 14.5 % [place] Hematocrit (Bld) [Volume fraction] 39.0 % Low 42 - 52 % [place] Hemoglobin (Bld) [Mass/Vol] 13.3 g/dL Low 14 - 18 g/dL [place] Interpretation and review of laboratory results Abnormal [place] Lymphocytes (Bld) [#/Vol] 1.8 10*3/uL 1 - 4.8 K/uL [place] Lymphocytes/100 WBC (Bld) 16.0 % [place] MCH (RBC) [Entitic mass] 33.3 pg High 27 - 31.3 pg [place] MCHC (RBC) [Mass/Vol] 34.0 % 33 - 37 % [place] MCV (RBC) [Entitic vol] 98.0 fL 80 - 100 fL [place] Monocytes (Bld) [#/Vol] 1.2 10*3/uL High 0.2 - 0.8 K/uL [place] Monocytes/100 WBC (Bld) 10.8 % M [place] Neutrophils Absolute 7.8 K/uL High 1.4 - 6 .5 K/uL [place] Neutrophils/100 WBC (Bld) 71.2 % [place] Platelets (Bld) [#/Vol] 232 10*3/uL 130 - 400 K/uL [place] RBC (Bld) [#/Vol] 3.98 10*6/uL Low [place] WBC (Bld) [#/Vol] 10.9 10*3/uL High 4.8 - 10.8 K/uL [place] CBC With Platelet and Differ entialon 10-25-2020 Basophils (Bld) [#/Vol] 0.0 10*3/uL Normal 0.0-0.2 [facility] Comment on above: Performed By: #### C BCWD #### [facility] [address] [place] [address] Basophils/100 WBC (Bld) 0.4 % Normal [facility] Comment on above: Performed By: #### C BCWD #### [facility] [address] [place] [address] Eosinophils (Bld) [#/Vol] 0.2 10*3/uL Normal 0.0-0.7 [facility] Comment on above: Performed By: #### C BCWD #### [facility] [address] [place] [address] Eosinophils/100 WBC (Bld) 1.6 % Normal [facility] Comment on above: Performed By: #### C BCWD #### [facility] [address] [place] [address] Erythrocyte distribution width (RBC) [Ratio] 13.1 % Normal 11.5-14.5 [facility] Comment on above: Performed By: #### C BCWD #### [facility] [address] [place] [address] Hematocrit (Bld) [Volume fraction] 39.0 % Low 42.0-52.0 [facility] Comment on above: Performed By: #### C BCWD #### [facility] [address] [place] [address] Hemoglobin (Bld) [Mass/Vol] 13.3 g/dL Low 14.0-18.0 [facility] Comment on above: Performed By: #### C BCWD #### [facility] [address] [place] [address] Lymphocytes (Bld) [#/Vol] 1.8 10*3/uL Normal 1.0-4.8 [facility] Comment on above: Performed By: #### C BCWD #### [facility] [address] [place] [address] Lymphocytes/100 WBC (Bld) 16.0 % Normal [facility] Comment on above: Performed By: #### C BCWD #### [facility] [address] [place] [address] MCH (RBC) [Entitic mass] 33.3 pg Critically high 27.0-3 1.3 [facility] Comment on above: Performed By: #### C BCWD #### [facility] [address] [place] [address] MCHC (RBC) [Mass/Vol] 34.0 % Normal 33.0-37.0 [facility] Comment on above: Performed By: #### C BCWD #### [facility] [address] [place] [address] MCV (RBC) [Entitic vol] 98.0 fL Normal 80.0-100.0 [facility] Comment on above: Performed By: #### C BCWD #### [facility] [address] [place] [address] Monocytes (Bld) [#/Vol] 1.2 10*3/uL Critically high 0.2-0. 8 [facility] Comment on above: Performed By: #### C BCWD #### [facility] [address] [place] [address] Monocytes/100 WBC (Bld) 10.8 % Normal [facility] Comment on above: Performed By: #### C BCWD #### [facility] [address] [place] [address] Neutrophils (Bld) [#/Vol] 7.8 10*3/uL Critically high 1.4-6.5 [facility] Comment on above: Performed By: #### C BCWD #### [facility] [address] [place] [address] Neutrophils/100 WBC (Bld) 71.2 % Normal [facility] Comment on above: Performed By: #### C BCWD #### [facility] [address] [place] [address] Platelets (Bld) [#/Vol] 232 10*3/uL Normal 130-400 [facility] Comment on above: Performed By: #### C BCWD #### [facility] [address] [place] [address] RBC (Bld) [#/Vol] 3.98 10*6/uL Low 4.70-6.10 [facility] Comment on above: Performed By: #### C BCWD #### [facility] [address] [place] [address] WBC (Bld) [#/Vol] 10.9 10*3/uL Critically high 4.8-10.8 [facility] Comment on above: Performed By: #### C BCWD #### [facility] [address] [place] [address] Hemoglobin A1con 10-25-2020 HbA1c (Bld) [Mass fraction] 12.1 % Critically high 4.8-5.9 [facility] Comment on above: Performed By: #### A 1C ####[facility] [place] [phone] HbA1c (Bld) [Mass fraction] 12.1 % High 4.8 - 5.9 % [place] Interpretation and review of laboratory results Abnormal [place] POCT Glucoseon 10-25-2020 Glucose [Mass/Vol] 372 mg/dL Critically high 60-115 M [facility] Comment on above: Performed By: #### P GLU #### [facility] [address] [place] [address] POC Performed on ACCU-CHEK Normal [facility] Comment on above: Result Comment: Karina chamberlain RN or Performed By: #### P GLU #### [facility] [address] [place] [address] Glucose [Mass/Vol] 372 mg/dL High 60 - 115 mg/dl [place] Interpretation and review of laboratory results Abnormal [place] Performed on ACCU-CHEK [place] Comment on above: Notified RN or MD Glucose [Mass/Vol] 246 mg/dL Critically high 60-115 M [facility] Comment on above: Performed By: #### P GLU #### [facility] [address] [facility] [address] POC Performed on ACCU-CHEK Normal [facility] Comment on above: Performed By: #### P GLU #### [facility] [address] [facility] [address] Glucose [Mass/Vol] 246 mg/dL High 60 - 115 mg/dl [place] Interpretation and review of laboratory results Abnormal [place] Performed on ACCU-CHEK [place] LESS THAN 1 HOURon 2020 [...] notes for complete details. Interpreted by: Mickey Barnch DO Signed by: Mickey Branch DO 10/26/20 Final result Normal [facility] OPERATIVE REPORTon OPERATIVE REPORT [facility] [address] [place] [address] OPERATIVE REPORT PATIENT NAME: ANMOL REYNOLDS : 1960 MED REC NO: [id number] ROOM: ACCOUNT NO: [id number] ADMIT DATE: 10/24/2020 PROVIDER: Opal Vigil MD [...] tolerated well. OPAL VIGIL MD [id number] Doc#: [id number] CC: Normal [facility] POCT Glucoseon 10-24-2020 Glucose [Mass/Vol] 439 mg/dL Critically high 60-115 M [facility] Comment on above: Performed By: #### P GLU #### [facility] [address] [facility] [address] POC Performed on ACCU-[facility] [place] Comment on above: Result Comment: Noti fied RN or MD Performed By: #### P GLU #### [facility] [address] [facility] [address] Glucose [Mass/Vol] 439 mg/dL Critically high 60 - 1 15 mg/dl [place] Interpretation and review of laboratory results Abnormal [place] Performed on ACCU-CHEK [place] Comment on above: Notified RN or MD Glucose [Mass/Vol] 251 mg/dL Critically high 60-115 M [facility] Comment on above: Performed By: #### P GLU #### [facility] [address] [place] [address] POC [facility] Comment on above: Performed By: #### P GLU #### [facility] [address] [place] [address] Glucose [Mass/Vol] 251 mg/dL High 60 - 115 mg/dl [place] Interpretation and review of laboratory results Abnormal [place] Performed on ACCU-CHEK [place] Glucose [Mass/Vol] 299 mg/dL Critically high 60-115 M [facility] Comment on above: Performed By: #### P GLU #### [facility] [address] [place] [address] POC Performed on ACCU-CHEK Normal [facility] Comment on above: Performed By: #### P GLU #### [facility] [address] [place] [address] Glucose [Mass/Vol] 299 mg/dL High 60 - 115 mg/dl [place] Interpretation and review of laboratory results Abnormal [place] Performed on ACCU-CHEK [place] COVID-19, NAAon 10-19-2020 COVID-19, JOSSY Not Detected Normal Not Detect [facility] Comment on above: Result Comment: This nucleic acid amplification test was developed and its performance characteristics determined by [employer]. Nucleic acid amplification tests include PCR and [...] in this assay. Performed at: [facility] [address] [facility], [place], [place] [id number] Field Sales Specialist: Carmela Sue MD, Phone: [phone] Performed By: #### I RCOV #### [facility] [address] [place] [address] COVID-19, NAAon 10-18-2020 Source Swab Anterior nares Normal [facility] Comment on above: Performed By: #### I RCOV #### [facility] [address] [place] [address] Basic Metabolic Panelon 10-05 Anion gap [Moles/Vol] 14 mmol/L Normal 9-15 [facility] Comment on above: Performed By: #### B MP #### [facility] [address] [place] [address] Calcium [Mass/Vol] 9.3 mg/dL Normal 8.5-9.9 [facility] Comment on above: Performed By: #### B MP #### [facility] [address] [place] [address] Chloride [Moles/Vol] 100 mmol/L Normal 95-107 [facility] Comment on above: Performed By: #### B MP #### [facility] [address] [place] [address] CO2 [Moles/Vol] 23 mmol/L Normal 20-31 [facility] Comment on above: Performed By: #### B MP #### [facility] [address] [place] [address] Creatinine [Mass/Vol] 0.57 mg/dL Low 0.70-1.20 [facility] Comment on above: Performed By: #### B MP #### [facility] [address] [place] [address] GFR/1.73 sq M predicted among blacks MDRD (S/P/Bld) [Vol rate/Area] mL/min/{1.73_m2} Normal >60 [facility] Comment on above: Result Comment: >60 mL/min/1.73m2 EGFR, calc. for ages 18 and older using the MDRD formula (not corrected for weight), is valid for stable renal function. Performed By: #### B MP #### [facility] [address] [place] [address] GFR/1.73 sq M.predicted MDRD (S/P/Bld) [Vol rate/Area] mL/min/{1.73_m2} Normal >60 [facility] Comment on above: Result Comment: >60 mL/min/1.73m2 EGFR, calc. for ages 18 and older using the MDRD formula (not corrected for weight), is valid for stable renal function. Performed By: #### B MP #### [facility] [address] [place] [address] Glucose [Mass/Vol] 275 mg/dL Critically high 70-99 M [facility] Comment on above: Performed By: #### B MP #### [facility] [address] [place] [address] Potassium [Moles/Vol] 4.2 mmol/L Normal 3.4-4.9 [facility] Comment on above: Performed By: #### B MP #### [facility] [address] [place] [address] Sodium [Moles/Vol] 137 mmol/L Normal 135-144 [facility] Comment on above: Performed By: #### B MP #### [facility] [address] [place] [address] Urea nitrogen [Mass/Vol] 11 mg/dL Normal 6-20 [facility] Comment on above: Performed By: #### B MP #### [facility] [address] [place] [address] CBC With Platelet No Differe ntialon 10-15-2020 Erythrocyte distribution width (RBC) [Ratio] 12.7 % Normal 11.5-14.5 [facility] Comment on above: Performed By: #### C BCND #### [facility] [address] [place] [address] Hematocrit (Bld) [Volume fraction] 50.9 % Normal 42.0-52.0 [facility] Comment on above: Performed By: #### C BCND #### [facility] [address] [place] [address] Hemoglobin (Bld) [Mass/Vol] 17.4 g/dL Normal 14.0-18.0 [facility] Comment on above: Performed By: #### C BCND #### [facility] [address] [place] [address] MCH (RBC) [Entitic mass] 33.8 pg Critically high 27.0-3 1.3 [facility] Comment on above: Performed By: #### C BCND #### [facility] [address] [place] [address] MCHC (RBC) [Mass/Vol] 34.2 % Normal 33.0-37.0 [facility] Comment on above: Performed By: #### C BCND #### [facility] [address] [place] [address] MCV (RBC) [Entitic vol] 98.8 fL Normal 80.0-100.0 M [facility] Comment on above: Performed By: #### C BCND #### [facility] [address] [place] [address] Platelets (Bld) [#/Vol] 308 10*3/uL Normal 130-400 [facility] Comment on above: Performed By: #### C BCND #### [facility] [address] [place] [address] RBC (Bld) [#/Vol] 5.15 10*6/uL Normal 4.70-6.10 [facility] Comment on above: Performed By: #### C BCND #### [facility] [address] [place] [address] WBC (Bld) [#/Vol] 9.6 10*3/uL Normal 4.8-10.8 [facility] Comment on above: Performed By: #### C BCND #### [facility] [address] [place] [address] Partial Thromboplastin Timeo n 10-15-2020 aPTT Coag (Bld) [Time] 33.9 s Normal 24.4-36.8 [facility] Comment on above: Result Comment: Effe ctive 08/08/2020: Heparin Therapeutic Range: 64.0 ? 98.0 seconds. Performed By: #### P TT #### [facility] [address] [place] [address] Prothrombin Timeon 1 INR Coag (PPP) [Relative time] 0.9 {INR} Normal [facility] Comment on above: Performed By: #### P T #### [facility] [address] [place] [address] PT Coag (PPP) [Time] 12.6 s Normal 12.3-14.9 [facility] Comment on above: Performed By: #### P T #### [facility] [address] [place] [address] MRI Spine Lumbar w/ + w/o Co ntraston 06-15-2018 MRI Spine Lumbar w/ + w/o Contrast Patient Name: ANMOL REYNOLDS MRI Exam Date/Time 06/14/2018 15:59:06 EDT Exam MRI Spine Lumbar w/ + w/o Contrast Ordering Physician [id number] MELITON MCWILLIAMS Accession Number [id number] CPT4 Codes 65513 () Reason For Exam lt leg radiculopathy [...] Transcribed Date and Time: 06/15/2018 8:33 Normal [facility] Glucose, WB POCon 08-05-2017 Glucose mass conc 179 mg/dL High 70-100 [facility] Comment on above: Performed By: #### 1 [id number] ####[facility] [address] [place] [address] Glucose mass conc 194 mg/dL High 70-100 [facility] Comment on above: Performed By: #### 1 [id number] ####[facility] [address] [place] [address] SPINE LUMBAR SINGLE VIEWon 1 10-05-2016 SPINE LUMBAR SINGLE VIEW DATE OF EXAM: N 2016 1:18PMCLINICAL HISTORY/ Name: GIVEN, BRIANSTUDY:SPINE LUMBAR SINGLE VIEW; 08/05/2017 1:18 pmINDICATION:intra op.COMPARISON:None.AC CESSION NUMBER(S):[id number] RDERING CLINICIAN:OPAL MONGE:Single lateral view of the lumbar spine during lumbar spine surgery. Surgical marker at L5-S1 level. Fluoroscopic time is 0.05 sec.CONCLUSION: IMPRESSION:Fluoroscop ic image of the lumbar spine during surgery. Please refer to the surgical note for further details. Normal [facility] CBC With Differentialon 07-07 Basophils Auto #/vol (Bld) 0.02 10*3/uL Normal 0.01-0.09 [facility] Comment on above: Performed By: #### 2 [id number] ####[facility] [address] [place] [address] Basophils/100 WBC Auto (Bld) 0.2 % Normal 0.0-1.3 [facility] Comment on above: Performed By: #### 2 107244 ####[facility] [address] [place] [address] Eosinophils 0.02 10*3/uL Normal 0.01-0.46 [facility] Comment on above: Performed By: #### 2 779233 ####[facility] [address] [place] [address] Eosinophils/100 leukocytes 0.2 % Normal 0.0-6.7 [facility] Comment on above: Performed By: #### 2 [id number] ####[facility] [address] [place] [address] Erythrocyte distribution width Auto Ratio (RBC) 12.5 % Normal 12.0-15.4 [facility] Comment on above: Performed By: #### 2 [id number] ####[facility] [address] [place] [address] Erythrocytes (RBC) 0.00 10*3/uL Normal [facility] Comment on above: Performed By: #### 2 [id number] ####[place] [place] [address] Erythrocytes (RBC) 5.10 10*6/uL Normal 4.08-6.37 [facility] Comment on above: Performed By: #### 2 [id number] ####[facility] [address] [place] [address] Erythrocytes (RBC) 0.0 /100{WBCs} Normal [facility] Comment on above: Performed By: #### 2 294903 ####[facility] [address] [place] [address] Hematocrit (HCT) 49.7 % Normal 38.4-54.9 [facility] Comment on above: Performed By: #### 2 551675 ####[facility] [address] [place] [address] Hemoglobin mass conc (Bld) 17.2 g/dL Normal 12.8-17.7 [facility] Comment on above: Performed By: #### 2 432400 ####[facility] [address] [place] [address] Imm Grans Absolute 0.03 10*3/uL Normal 0.00-0.21 [facility] Comment on above: Performed By: #### 2 305599 ####[facility] [address] [place] [address] Immature granulocytes #/vol (Bld) 0.3 % Normal [facility] Comment on above: Performed By: #### 2 828302 ####[facility] [address] [place] [address] Lymphocytes 1.28 10*3/uL Normal 0.40-2.84 [facility] Comment on above: Performed By: #### 2 986743 ####[facility] [address] [place] [address] Lymphocytes/100 leukocytes 11.9 % Normal 9.4-41.1 [facility] Comment on above: Performed By: #### 2 741151 ####[facility] [address] [place] [address] MCH 33.7 pg High 27.5-32.9 [facility] Comment on above: Performed By: #### 2 975748 ####[facility] [address] [place] [address] MCHC mass conc (RBC) 34.6 g/dL Normal 30.5-35.4 [facility] Comment on above: Performed By: #### 2 701704 ####[facility] [address] [place] [address] MCV 97.5 fL Normal 83.3-98.2 [facility] Comment on above: Performed By: #### 2 143880 ####[facility] [address] [place] [address] Monocytes 0.85 10*3/uL Normal 0.25-1.33 [facility] Comment on above: Performed By: #### 2 163908 ####[facility] [address] [place] [address] Monocytes/100 leukocytes 7.9 % Normal 3.0-16.2 [facility] Comment on above: Performed By: #### 2 117007 ####[facility] [address] [place] [address] Neutrophils 8.54 10*3/uL High 2.22-7.53 [facility] Comment on above: Performed By: #### 2 282596 ####[facility] [address] [place] [address] Neutrophils/100 leukocytes 79.5 % High 46.2-79.1 [facility] Comment on above: Performed By: #### 2 617021 ####[facility] [address] [place] [address] Platelet mean volume (PMV) 10.4 fL Normal 9.9-12.1 [facility] Comment on above: Performed By: #### 2 480269 ####[facility] [address] [place] [address] Platelets 334 10*3/uL Normal 155-404 [facility] Comment on above: Performed By: #### 2 266167 ####[facility] [address] [place] [address] RDW SD 45.3 fL Normal 39.3-48.6 [facility] Comment on above: Performed By: #### 2 470428 ####[facility] [address] [place] [address] WBC (Leukocytes) 10.7 10*3/uL Normal 4.2-11.0 [facility] Comment on above: Performed By: #### 2 062784 ####[facility] [address] [place] [address] CHEST 2 VIEWS PA AND LATon 1 CHEST 2 VIEWS PA AND LAT DATE OF EXAM: O ct 2016 8:43AMCLINICAL HISTORY/ Name: GIVEN, BRIANSTUDY:CHEST 2 VIEWS PA AND LAT; 08/03/2017 8:43 amINDICATION:preop.CO MPARISON:None.ACCESSI ON NUMBER(S):[id number] RDERING CLINICIAN:OPAL MONGE:There is no definite acute infiltrate. The costophrenic angles are not blunted. There is no pneumothorax. The heart size and mediastinal width are within gross limits of normal. No prior chest radiograph is available for comparison.CONCLUSION : IMPRESSION:No definite acute pulmonary findings Normal [facility] Comprehensive Metabolic Pane antonio 08-03-2017 Alanine aminotransferase (ALT) 18 U/L Normal [facility] Comment on above: Performed By: #### 1 [id number] ####[facility] [address] [place] [address] Albumin 4.9 g/dL Normal 3.4-5.0 [facility] Comment on above: Performed By: #### 1 474132 ####[facility] [address] [place] [address] Albumin/Globulin Ratio 2.0 {ratio} Normal 0.9-2.4 [facility] Comment on above: Performed By: #### 1 056003 ####[facility] [address] [place] [address] Alkaline phosphatase (ALP) 119 U/L High 45-117 [facility] Comment on above: Performed By: #### 1 985066 ####[facility] [address] [place] [address] Anion gap 15 mmol/L Normal 10-20 [facility] Comment on above: Performed By: #### 1 957802 ####[facility] [address] [place] [address] Aspartate aminotransferase (AST) 15 U/L Normal 13-39 [facility] Comment on above: Performed By: #### 1 940417 ####[facility] [address] [place] [address] Bicarbonate (HCO3) 22 mmol/L Normal 21-32 [facility] Comment on above: Performed By: #### 1 849858 ####[facility] [address] [place] [address] Bilirubin (total) 1.0 mg/dL Normal 0.0-1.2 [facility] Comment on above: Performed By: #### 1 671101 ####[facility] [address] [place] [address] BUN/Creatinine Ratio 19 mg/mg Normal 5-25 [facility] Comment on above: Performed By: #### 1 662236 ####[facility] [address] [place] [address] Calcium 10.0 mg/dL Normal 8.6-10.3 [facility] Comment on above: Performed By: #### 1 165352 ####[facility] [address] [place] [address] Chloride 103 mmol/L Normal 98-107 [facility] Comment on above: Performed By: #### 1 847013 ####[facility] [address] [place] [address] Creatinine 0.64 mg/dL Normal 0.50-1.30 [facility] Comment on above: Performed By: #### 1 905038 ####[facility] [address] [place] [address] eGFR (MDRD) mL/min/{1.73_m2} Normal [facility] Comment on above: Result Comment: Inte rpretation for Chronic Kidney Disease:Stages 1&2 >60 Healthy or potential kidney damage.Mild decrease of GFR.Stage 3 30-59 Moderate decrease of GFR.Stage 4 15-29 Severe decrease of GFR.Stage 5 <15 Kidney failure or on dialysis. Performed By: #### 1 722717 ####[facility] [address] [place] [address] Glucose mass conc 233 mg/dL High 70-100 [facility] Comment on above: Performed By: #### 1 759586 ####[facility] [address] [place] [address] Potassium molar conc 3.8 mmol/L Normal 3.5-5.1 [facility] Comment on above: Performed By: #### 1 959205 ####[facility] [address] [place] [address] Protein 7.4 g/dL Normal 6.4-8.2 [facility] Comment on above: Performed By: #### 1 119655 ####[facility] [address] [place] [address] Sodium 136 mmol/L Normal 136-145 [facility] Comment on above: Performed By: #### 1 438654 ####[facility] [address] [place] [address] Urea nitrogen 12 mg/dL Normal 6-23 [facility] Comment on above: Performed By: #### 1 308984 ####[facility] [address] [place] [address] ESR, Westergrenon 08-03-2017 ESR, Westergren 2 mm/h Normal 0-15 [facility] Comment on above: Performed By: #### 2 256545 ####[facility] [address] [place] [address] Prothrombin Time (PT) & Part ial Thromboplastin (PTT)on 08-03-2017 aPTT 29.2 s Normal 22.1-35.3 [facility] Comment on above: Result Comment: Hepa rin Therapeutic Range: 71 - 97 sec Performed By: #### P TPTT ####[facility] [address] [place] [address] INR Coag RelTime (PPP) 0.84 {INR} Low 0.85-1.16 [facility] Comment on above: Result Comment: Coum john Therapy:1.5 - 2.0 Low Intensity Therapy2.0 - 3.0 Moderate Intensity Therapy2.5 - 3.5 High (1) Intensity Therapy3.0 - 4.0 High (2) Intensity Therapy Performed By: #### P TPTT ####[facility] [address] [place] [address] Prothrombin time (PT) Coag time (PPP) 11.4 s Normal 11.3-14.5 [facility] Comment on above: Performed By: #### P TPTT ####[facility] [address] [place] [address] Urinalysison 08-03-2017 Ascorbic Acid Negative Normal Negative [facility] Comment on above: Performed By: #### 1 609388 ####[facility] [address] [place] [address] Automated Urine Microscopy Not indicated Normal [facility] Comment on above: Performed By: #### 1 954836 ####[facility] [address] [place] [address] Bilirubin Ql (U) Negative Normal Negative [facility] Comment on above: Performed By: #### 1 743601 ####[facility] [address] [place] [address] Blood Negative Normal Negative [facility] Comment on above: Performed By: #### 1 362511 ####[facility] [address] [place] [address] Glucose mass conc mg/dL Abnormal Negative [facility] Comment on above: Performed By: #### 1 565612 ####[facility] [address] [place] [address] Protein Negative Normal Negative [facility] Comment on above: Performed By: #### 1 519096 ####[facility] [address] [place] [address] Urine, appearance Clear Normal Clear [facility] Comment on above: Performed By: #### 1 176693 ####[facility] [address] [place] [address] Urine, color Yellow Normal [facility] Comment on above: Performed By: #### 1 [id number] ####[facility] [address] [place] [address] Urine, ketones presence Negative Normal Negative [facility] Comment on above: Performed By: #### 1 417036 ####[facility] [address] [place] [address] Urine, nitrite presence Negative Normal Negative [facility] Comment on above: Performed By: #### 1 644810 ####[facility] [address] [place] [address] Urine, pH 5.0 [pH] Normal 5.0-9.0 [facility] Comment on above: Performed By: #### 1 185370 ####[facility] [address] [place] [address] Urine, specific gravity 1.033 Normal 1.003-1.035 [facility] Comment on above: Performed By: #### 1 421144 ####[facility] [address] [place] [address] Urine, urobilinogen <2.0 Normal Negative [facility] Comment on above: Performed By: #### 1 615353 ####[facility] [address] [place] [address] WBC (Leukocytes) Negative Normal Negative [facility] Comment on above: Performed By: #### 1 779525 ####[facility] [address] [place] [address] DX LUMBOSACRAL SPINE, BENDIN G VIEWS ONLY, [...] levels unchanged with flexion or extension. Normal [facility] MRI LUMBAR SPINE W/O CONTRAS Ton [...] at the L4-L5 and L5-S1 levels. Normal [facility] Vital Signs Date Time Vital Sign Value Performing Clinician Facility 06-02-2025 11:01-0400 Body temperature 97.59 [degF] Savage Castillo MD Work Phone: [facility] 06-02-2025 11:01-0400 Diastolic blood pressure 77 mm[Hg] Savage Castillo MD Work Phone: [facility] 06-02-2025 11:01-0400 Heart rate 78 /min Savage Castillo MD Work Phone: [facility] [employer] 06-02-2025 11:01-0400 SaO2% (BldA) [Mass fraction] 99 % Savage Castillo MD Work Phone: [facility] [employer] 06-02-2025 11:01-0400 Systolic blood pressure 130 mm[Hg] Savage Castillo MD Work Phone: [facility] [employer] 04-28-2025 20:11-0400 Body temperature 97.3 [degF] Brad Campos MD Work Phone: [facility] [employer] 04-28-2025 20:11-0400 Diastolic blood pressure 64 mm[Hg] Brad Campos MD Work Phone: [facility] [employer] 04-28-2025 20:11-0400 Heart rate 76 /min Brad Campos MD Work Phone: [facility] [employer] 04-28-2025 20:11-0400 Respiratory rate 16 /min Brad Campos MD Work Phone: [facility] [employer] 04-28-2025 20:11-0400 SaO2% (BldA) [Mass fraction] 92 % Brad Campos MD Work Phone: [facility] [employer] 04-28-2025 20:11-0400 Systolic blood pressure 106 mm[Hg] Brad Campos MD Work Phone: [facility] [employer] 04-24-2025 13:34-0400 Body height 190.5 cm Brad Campos MD Work Phone: [facility] [employer] 04-22-2025 03:00-0400 Body mass index (BMI) [Ratio] 24.42 kg/m2 Brad Campos MD Work Phone: [facility] [employer] 04-22-2025 03:00-0400 Body weight 88.63 kg Brad Campos MD Work Phone: [facility] [employer] 03-14-2025 13:56-0400 Body temperature 98.01 [degF] Milad Goodson MD Work Phone: [facility] 03-14-2025 13:56-0400 Diastolic blood pressure 70 mm[Hg] Milad Goodson MD Work Phone: [facility] 03-14-2025 13:56-0400 Heart rate 84 /min Milad Goodson MD Work Phone: [facility] 03-14-2025 13:56-0400 Respiratory rate 20 /min Milad Goodson MD Work Phone: [facility] 03-14-2025 13:56-0400 SaO2% (BldA) [Mass fraction] 97 % Milad Goodson MD Work Phone: [facility] 03-14-2025 13:56-0400 Systolic blood pressure 107 mm[Hg] Milad Goodson MD Work Phone: [facility] 03-07-2025 08:54-0400 Diastolic blood pressure 52 mm[Hg] Yoana Floresn [employer]DER [employer]ESS OPERATOR - [employer]WORK [employer]AT SUPPORT SPECIALIST Work Phone: [facility] 03-07-2025 08:54-0400 Heart rate 68 /min Yoana Bren POWDER PRESS OPERATOR - NETWORK AND THREAT SUPPORT SPECIALIST Work Phone: [facility] 03-07-2025 08:54-0400 Systolic blood pressure 107 mm[Hg] Yoana Bren POWDER PRESS OPERATOR - NETWORK AND THREAT SUPPORT SPECIALIST Work Phone: [facility] 01-31-2025 13:27-0400 Body temperature 98.6 [degF] Milad Goodson MD Work Phone: [facility] 01-31-2025 13:27-0400 Diastolic blood pressure 90 mm[Hg] Milad Goodson MD Work Phone: [facility] 01-31-2025 13:27-0400 Heart rate 80 /min Milad Goodson MD Work Phone: [facility] 01-31-2025 13:27-0400 Respiratory rate 18 /min Milad Goodson MD Work Phone: [facility] 01-31-2025 13:27-0400 SaO2% (BldA) [Mass fraction] 95 % Milad Goodson MD Work Phone: [facility] 01-31-2025 13:27-0400 Systolic blood pressure 136 mm[Hg] Milad Goodson MD Work Phone: [facility] 06-13-2024 10:56-0400 Diastolic blood pressure 72 mm[Hg] [employer] 06-13-2024 10:56-0400 Heart rate 85 /min [employer] 06-13-2024 10:56-0400 Respiratory rate 18 /min [employer] 06-13-2024 10:56-0400 SaO2% (BldA) [Mass fraction] 98 % [employer] 06-13-2024 10:56-0400 Systolic blood pressure 114 mm[Hg] [employer] 05-22-2024 08:09-0400 Body temperature 96.8 [degF] Rodney Guerrero DO Work Phone: [facility] 05-22-2024 08:09-0400 Diastolic blood pressure 76 mm[Hg] Rodney Guerrero DO Work Phone: [facility] 05-22-2024 08:09-0400 Heart rate 70 /min Rodney Guerrero DO Work Phone: [facility] 05-22-2024 08:09-0400 Respiratory rate 16 /min [employer] Guerrero DO Work Phone: [facility] 05-22-2024 08:09-0400 SaO2% (BldA) [Mass fraction] 99 % Rodney Guerrero DO Work Phone: [facility] 05-22-2024 08:09-0400 Systolic blood pressure 128 mm[Hg] [employer] Guerrero DO Work Phone: [facility] 05-19-2024 13:00-0400 Body mass index (BMI) [Ratio] 26.62 kg/m2 Rodney Guerrero DO Work Phone: [facility] 05-19-2024 13:00-0400 Body weight 96.62 kg [employer] DO Work Phone: [facility] 05-18-2024 01:26-0400 Body height 190.5 cm Rodney Guerrero DO Work Phone: [employer] 05-06-2024 17:08-0400 Body temperature 98.01 [degF] Dashawn Grimm MD Work Phone: [employer] 05-06-2024 17:08-0400 Diastolic blood pressure 67 mm[Hg] Dashawn Grimm MD Work Phone: [employer] 05-06-2024 17:08-0400 Heart rate 82 /min Dashawn Grimm MD Work Phone: [employer] 05-06-2024 17:08-0400 Respiratory rate 16 /min Dashawn Grimm MD Work Phone: [employer] 05-06-2024 17:08-0400 SaO2% (BldA) [Mass fraction] 91 % Dashawn Grimm MD Work Phone: [employer] 05-06-2024 17:08-0400 Systolic blood pressure 114 mm[Hg] Dashawn Grimm MD Work Phone: [employer] 05-05-2024 18:30-0400 Body height 190.5 cm Dashawn Grimm MD Work Phone: [employer] 05-05-2024 18:30-0400 Body mass index (BMI) [Ratio] 26.62 kg/m2 Dashawn Grimm MD Work Phone: [employer] 05-05-2024 18:30-0400 Body weight 96.62 kg Dashawn Grimm MD Work Phone: [employer] 04-20-2024 11:39-0400 Body temperature 97.81 [degF] Ene Dickens MD Work Phone: [employer] 04-20-2024 11:39-0400 Diastolic blood pressure 81 mm[Hg] Ene Dickens MD Work Phone: [employer] 04-20-2024 11:39-0400 Heart rate 84 /min Ene Dickens MD Work Phone: [employer] 04-20-2024 11:39-0400 SaO2% (BldA) [Mass fraction] 97 % Ene Dickens MD Work Phone: [facility] [employer] 04-20-2024 11:39-0400 Systolic blood pressure 135 mm[Hg] Ene Dickens MD Work Phone: [facility] [employer] 04-20-2024 09:55-0400 Respiratory rate 18 /min Ene Dickens MD Work Phone: [facility] [employer] 04-19-2024 05:47-0400 Body mass index (BMI) [Ratio] 26.62 kg/m2 Ene Dickens MD Work Phone: [facility] [employer] 04-19-2024 05:47-0400 Body weight 96.6 kg Ene Dickens MD Work Phone: [facility] [employer] 04-17-2024 00:02-0400 Body height 190.5 cm Ene Dickens MD Work Phone: [facility] [employer] 01-29-2024 15:58-0400 Body height 190.5 cm Carlos Gil[place] MD Work Phone: [facility] [employer] 01-29-2024 15:58-0400 Body mass index (BMI) [Ratio] 22.5 kg/m2 Carlos [place] MD Work Phone: [facility] [employer] 01-29-2024 15:58-0400 Body weight 81.65 kg Carlos [place] MD Work Phone: [facility] [employer] 12-29-2023 14:56-0400 Body height 190.5 cm Carlos [place] MD Work Phone: [facility] [employer] 12-29-2023 14:56-0400 Body mass index (BMI) [Ratio] 22.87 kg/m2 Carlos [place] MD Work Phone: [facility] [employer] 12-29-2023 14:56-0400 Body weight 83.01 kg Carlos [place] MD Work Phone: [facility] [employer] 05-23-2023 12:06-0400 Diastolic blood pressure 80 mm[Hg] Colt Klein DO Work Phone: [facility] 05-23-2023 12:06-0400 Heart rate 80 /min [employer] [address] Work Phone: [facility] 05-23-2023 12:06-0400 Respiratory rate 18 /min [employer] [address] Work Phone: [facility] 05-23-2023 12:06-0400 SaO2% (BldA) [Mass fraction] 98 % [employer] [address] Work Phone: [facility] 05-23-2023 12:06-0400 Systolic blood pressure 110 mm[Hg] [employer]t [employer] [address] Work Phone: [facility] 05-23-2023 07:54-0400 Body height 190.5 cm [employer] Phone: [facility] 05-23-2023 07:54-0400 Body mass index (BMI) [Ratio] 22.5 kg/m2 [employer] Phone: [facility] 05-23-2023 07:54-0400 Body temperature 97.9 [degF] [employer] Phone: [facility] 05-23-2023 07:54-0400 Body weight 81.65 kg [employer] Phone: [facility] 10-25-2020 00:47-0500 Body Temperature 97.7 [degF] [facility] [employer] [facility] [place] 10-25-2020 00:47-0500 BP Diastolic 59 mm[Hg] [facility] , [place] 10-25-2020 00:47-0500 BP Systolic 100 mm[Hg] [facility] , [place] 10-25-2020 00:47-0500 Pulse (Heart Rate) 80 /min [facility] [place] 10-25-2020 00:47-0500 Pulse Oximetry 97 % [facility] [place] 10-25-2020 00:47-0500 Respiratory Rate 16 /min [facility] [place] 10-24-2020 08:01-0500 BMI (Body Mass Index) 25.68 kg/m2 [place], [place] 10-24-2020 08:01-0500 Body weight 90.72 kg [place], [place] 10-24-2020 08:01-0500 Height 188 cm [facility] , [place] Encounters Encounter Date Encounter Type Care Provider Facility Start: 07-17-2025 ambulatory Ambrosio M Esterle Facility :[facility] Start: 06-02-2025 End: 06-02-2025 Office outpatient visit 25 minutes Savage Castillo MD Work Phone: [facility] Infectious Disease [facility] ([facility] Comment on above: Pressure injury of c occygeal region, stage 3 (HCC) (Primary Dx); Other acute osteomyelitis, other site (HCC); MRSA (methicillin resistant Staphylococcus aureus) infection; Encounter for long-term (current) use of antibiotics; Paraplegia (HCC) Start: 06-02-2025 End: 06-02-2025 ambulatory SVAAGE CASTILLO [facility] Start: 05-29-2025 End: 05-29-2025 ambulatory Tab MURO Facility:[facility] Start: 05-25-2025 End: 05-25-2025 ambulatory Ambrosio M Esterle Facility:[facility] Start: 05-24-2025 End: 05-24-2025 Telephone encounter Cheryl Pimentel LPN [facility] Infectious Disease - [place] Comment on above: Labs Only (Missed la b notification ) Start: 05-22-2025 ambulatory Ambrosio M Esterle Facility :[facility] Start: 05-15-2025 ambulatory Ambrosio M Esterle Facility :[facility] Start: 05-11-2025 ambulatory Ambrosio M Esterle Facility :[facility] Start: 05-09-2025 ambulatory Ambrosio M Esterle Facility :[facility] Start: 05-03-2025 ambulatory Ambrosio M Esterle Facility :[facility] Start: 05-01-2025 ambulatory Ambrosio M Esterle Facility :[facility] Start: 04-21-2025 End: 04-28-2025 Evaluation and management of inpatient Brad Campos MD Work Phone: [facility] Comment on above: Other acute osteomye litis, other site (HCC) (Primary Dx); Pressure injury of coccygeal region, stage 3 (HCC); Lumbar stenosis with neurogenic claudication; Osteoarthritis, unspecified osteoarthritis type, unspecified site; Other intervertebral disc displacement, lumbar region Start: 04-18-2025 ambulatory Ambrosio Monroy Facility :[facility] Start: 04-16-2025 ambulatory Ambrosio Monroy Facility :[facility] Start: 03-24-2025 End: 03-24-2025 Telephone encounter Anmol Herbert MD Work Phone: Urology Start: 03-20-2025 End: 03-20-2025 ambulatory ANMOL HERBERT Facility:[facility] Start: 03-14-2025 End: 03-14-2025 Patient encounter procedure Milad Goodson MD Work Phone: Plastic Surgery Comment on above: Chronic osteomyeliti s (HCC) (Primary Dx); Severe protein-calorie malnutrition (HCC); Ureteral calculi; Complicated UTI (urinary tract infection); Neurogenic bladder; Type 2 diabetes mellitus with hyperglycemia, with long-term current use of insulin ([facility]) Start: 03-14-2025 End: 03-14-2025 ambulatory MILAD GOODSON Facility:[facility] Start: 03-07-2025 End: 03-07-2025 Telephone encounter [facility]NP [facility] Comment on [facility]: Other Start: 03-07-2025 End: 03-07-2025 Office outpatient visit 25 minutes Yo[facility] CNP [facility] Comment on above: Ureteral stent prese nt (Primary Dx); Kidney stone; Hydronephrosis, unspecified hydronephrosis type Start: 03-07-2025 End: 03-07-2025 ambulatory YOANA SOLITARIO [facility] Start: 03-01-2025 End: 03-01-[address] Ambrosio Monroy DO Work Phone: [facility] Work Phone: Start: 03-01-2025 End: 03-01-2025 Departed Referred Tab [facility] Start: 03-01-2025 Registered Referred Tab [facility] Start: 03-01-2025 End: 03-01-2025 ambulatory Ambrosio Monroy Facility:[facility] Start: 02-19-2025 End: 03-08-2025 Telephone encounter Anmol Herbert MD Work Phone: [place] [facility] Comment on above: Hospital F/U Start: 02-16-2025 End: 02-22-2025 Evaluation and management of inpatient HOWARD HERRERASILVANACHUY Facility:[facility] Start: 02-15-2025 End: 02-15-[address] Ambrosio Monroy DO Work Phone: [facility] Work Phone: Start: 02-15-2025 End: 02-15-2025 Departed Referred Tab [facility] Start: 02-15-2025 End: 02-15-2025 ambulatory Ambrosio Monroy Facility:[facility] Start: 01-31-2025 End: 01-31-2025 Patient encounter [...] Start: 01-31-2025 End: 01-31-2025 ambulatory MILAD GOODSON Facility:[facility] Start: 01-09-2025 End: 01-09-2025 Departed Referred Tab [facility] Start: 01-09-2025 End: 01-09-2025 ambulatory Ambrosio Monroy Facility:[facility] Start: 01-04-2025 ambulatory KRISTINE Mendoza ity:[facility] Start: 01-04-2025 End: 01-04-2025 Subsequent hospital visit by physician [facility] (1.5t) Radiology Start: 12-07-2024 End: 12-07-[address] Ambrosio Monroy DO Work Phone: [facility] Work Phone: Start: 12-07-2024 End: 12-07-2024 Departed Referred Tab Delvalle [employer] Start: 12-07-2024 Registered Referred Tab Dup[place] - Tierra Mcdonough [employer] Start: 12-07-2024 End: 12-07-2024 ambulatory Ambrosio Monroy Facility:[facility] Start: 11-30-2024 End: 11-30-[address] Ambrosio Monroy DO Work Phone: [facility] Work Phone: Start: 11-30-2024 End: 11-30-2024 Departed Referred Tab Weaver Adelia [employer] Start: 11-30-2024 Registered Referred Tab [place] - Tierra Mcdonough [employer] Start: 11-29-2024 End: 11-30-[address] Ambrosio Monroy DO Work Phone: [facility] Work Phone: Start: 11-29-2024 End: 11-29-2024 Departed Referred Daisy [facility]ello [facility] Start: 11-29-2024 End: 11-29-2024 ambulatory Ambrosio Monroy Facility:[facility] Start: 11-08-2024 End: 11-08-2024 Office outpatient visit 25 minutes Faisal Simeon DO [facility] Comment on above: Paraplegia (HCC) (Pr imary Dx); Neurogenic bladder; Gross hematuria; Neuropathic pain; Pressure injury of skin, unspecified injury stage, unspecified location Start: 11-08-2024 End: 11-08-2024 ambulatory FAISAL SIMEON Facility:[facility] Start: 10-25-2024 End: 11-20-2024 Telephone encounter Carlos Gillette MD Work Phone: [facility] Comment on above: Appointment Start: 10-11-2024 End: 01-10-2025 Transcribe Orders Kristine Howell APRN - NETWORK AND THREAT SUPPORT SPECIALIST Work Phone: [facility] Central Scheduling Comment on above: Pressure ulcer of sa cral region, unspecified stage (Primary Dx) Start: 10-10-2024 End: 10-10-2024 Departed Referred Tab [facility] Start: 10-10-2024 End: 10-10-2024 ambulatory Ambrosio Monroy Facility:[facility] Start: 10-03-2024 End: 10-03-2024 Departed Referred Tab [facility] Start: 10-03-2024 End: 10-03-2024 ambulatory Ambrosio Monroy Facility:[facility] Start: 09-30-2024 End: 09-30-2024 Office outpatient visit 25 minutes Faisal Simeon DO Work Phone: [facility] Comment on above: Neurogenic bladder ( Primary Dx); Paraplegia (HCC); Urinary retention; Gross hematuria Start: 09-30-2024 ambulatory FAISAL SIMEON Facility:[facility] Start: 09-29-2024 End: 09-29-2024 Departed Referred Tab [facility] Start: 09-29-2024 End: 09-29-2024 ambulatory Ambrosio Jamie Monroy Facility:[facility] Start: 09-20-2024 End: 09-20-2024 Departed Referred Tab [place] Start: 09-20-2024 End: 09-20-2024 ambulatory Ambrosio Jamie Monroy Facility:[facility] Start: 08-22-2024 End: 08-22-2024 Office outpatient new 45 minutes Giuliano Shultz DO Work Phone: [facility] Rheumatology Comment on above: Osteoporosis, unspec ified osteoporosis type, unspecified pathological fracture presence (Primary Dx) Start: 08-22-2024 End: 08-22-2024 ambulatory UNKNOWN PROVIDER Facility:[facility] Start: 08-12-2024 End: 08-12-2024 Telephone encounter Angelica Anne RN [facility] Rheumatology (Arthritis) Start: 08-01-2024 End: 08-01-2024 Office outpatient visit 25 minutes Sci Fellow [facility] PM&R Comment on above: Paraplegia (HCC) (Pr imary Dx); Neuropathic pain; Neurogenic bowel; Reflex neurogenic bladder Start: 08-01-2024 End: 08-01-2024 ambulatory UNKNOWN PROVIDER Facility:[facility] Start: 07-27-2024 End: 07-27-2024 Telephone encounter Angelica Anne RN [facility] Rheumatology (Arthritis) Start: 07-13-2024 End: 07-13-2024 Telephone encounter Angelica Anne RN [facility] Rheumatology (Arthritis) Start: 07-10-2024 End: 07-10-2024 ambulatory UNKNOWN PROVIDER Facility:[facility] Start: 07-10-2024 End: 07-10-2024 Subsequent hospital visit by physician Mh Ip/Op Mri 2 [facility] Radiology Comment on above: Sacral insufficiency fracture, initial encounter Start: 07-01-2024 End: 07-01-2024 ambulatory OTIS MEJIA Facility:[facility] Start: 06-15-2024 End: 06-15-2024 Telephone encounter Carlos Gillette MD Work Phone: [facility] Comment on above: Reschedule Start: 06-14-2024 End: 06-14-2024 Telephone encounter Vladimir Asher [facility] Start: 06-13-2024 End: 06-13-2024 Office outpatient new 60 minutes Sci Fellow Ivana [facility] Comment on above: Paraplegia (HCC) (Pr imary Dx); Reflex neurogenic bladder; Neuropathic pain; Neurogenic bowel Start: 06-13-2024 End: 06-13-2024 Office outpatient visit 25 minutes Sci Fellow Ivana [facility] Comment on above: Paraplegia (HCC) (Pr imary Dx); Reflex neurogenic bladder; Neuropathic pain; Neurogenic bowel; Urinary retention Start: 06-13-2024 End: 06-16-2024 ambulatory UNKNOWN PROVIDER Facility:[facility] Start: 05-17-2024 End: 05-22-2024 Evaluation and management of inpatient Rodney Guerrero DO Work Phone: [facility]W Comment on above: Positive blood cultu res (Primary Dx); Lumbar stenosis with neurogenic claudication; Osteoarthritis, unspecified osteoarthritis type, unspecified site; Other intervertebral disc displacement, lumbar region; Pressure injury of coccygeal region, stage 3 (HCC) Start: 05-13-2024 End: 05-13-2024 Telephone encounter Sarita Benoit SECURITY TEST ENGINEER [facility] Infectious Disease Comment on above: Labs Only Start: 05-11-2024 End: 05-15-2024 Office outpatient new 45 minutes Otis Mejia MD Work Phone: [facility] Orthopedic Spine Comment on above: Sacral insufficiency fracture, initial encounter (Primary Dx); Failed back surgical syndrome Start: 05-11-2024 End: 05-11-2024 Subsequent hospital visit by physician Op Xray 2 [facility] Radiology Comment on above: Sacral insufficiency fracture, initial encounter Start: 05-11-2024 End: 05-15-2024 ambulatory UNKNOWN PROVIDER Facility:[facility] Start: 05-10-2024 End: 05-10-2024 Telephone encounter Delaney Nunn RN [facility] Line Comment on above: Update Start: 05-05-2024 End: 05-06-2024 Subsequent hospital visit by physician Dashawn Grimm MD Work Phone: [facility] Medical Surgical Unit MSU H5 Comment on above: Bladder calculus (Pr imary Dx); Bilateral ureteral calculi; Calculus of ureter Start: 05-04-2024 End: 05-06-2024 Telephone encounter Carlos Gillette MD Work Phone: [facility] Pain Management Comment on above: Reschedule Start: 04-15-2024 End: 04-15-2024 ambulatory Joe Hammer APRN - NETWORK AND THREAT SUPPORT SPECIALIST Work Phone: [facility] Urology Comment on above: Bilateral ureteral c alculi (Primary Dx); Bladder calculus Start: 04-15-2024 End: 04-25-2024 Telephone encounter Joe Hammer APRN - NETWORK AND THREAT SUPPORT SPECIALIST Work Phone: [facility] Urology Comment on above: Surgery Scheduling Start: 04-14-2024 End: 04-20-2024 Evaluation and management of inpatient Ene Dickens MD Work Phone: [facility] Cardiac Progressive Care Unit PCU 2E Start: 04-06-2024 End: 04-28-2024 Telephone encounter Vaishali Placeway DO Work Phone: [facility] PM&R Start: 04-05-2024 End: 04-05-2024 ambulatory UNKNOWN PROVIDER Facility:[facility] Start: 04-05-2024 End: 04-05-2024 Subsequent hospital visit by physician Ip/Op Mri 1 [facility] Radiology Comment on above: Paraplegia (HCC); History of lumbar fusion Start: 02-10-2024 End: 02-11-2024 ambulatory UNKNOWN PROVIDER Facility:[facility] Start: 02-10-2024 End: 02-26-2024 Office outpatient new 45 minutes Vaishali Placeway DO Work Phone: [facility] PM&R Comment on above: Paraplegia (HCC) (Pr imary Dx); History of lumbar fusion Start: 02-10-2024 ambulatory UNKNOWN PROVIDER Facili ty:[facility] Start: 01-29-2024 End: 01-29-2024 Office outpatient visit 25 minutes Carlos Gillette MD Work Phone: [facility] Pain Management Comment on above: Injury of lumbar spi nal cord, sequela (HCC) (Primary Dx); Neuropathic pain Start: 01-15-[address] [facility] Start: 01-07-2024 End: 01-07-2024 ambulatory [facility] Work Phone: Start: 01-07-2024 End: 01-07-2024 Departed Referred [facility] Start: 01-07-[address] [facility] Start: 01-04-2024 End: 01-04-2024 ambulatory [facility] Work Phone: Start: 01-04-2024 End: 01-04-2024 Departed Referred [facility] Start: 01-04-[address] [facility] Start: 12-31-2023 End: 12-31-2023 ambulatory [facility] Work Phone: Start: 12-31-2023 End: 12-31-2023 Departed Referred [facility] Start: 12-29-2023 End: 12-29-2023 Office outpatient new 45 minutes Carlos Gillette MD Work Phone: [employer] [facility] Pain Management Comment on above: Spinal cord injury, lumbar, without spinal bone injury, sequela (HCC) (Primary Dx); Neuropathic pain Start: 12-04-2023 End: 12-04-2023 ambulatory [facility] Work Phone: Start: 12-04-2023 End: 12-04-2023 Departed Referred [facility] Start: 10-25-2023 End: 10-25-2023 Departed Referred [facility] Start: 09-04-2023 Telephone encounter Carlos israel MD Work Phone: [employer] [facility] Pain Management Comment on above: Referral Start: 08-19-2023 Telephone encounter Carlos israel MD Work Phone: [employer] [facility] Pain Management Comment on above: Referral (Confirm Re ceipt of Referral for GYROSCOPE TECHNICIAN Appt Scheduling) Start: 08-10-[address] [facility] Start: 08-07-[address] [facility] Start: 08-06-2023 Telephone encounter Carlos israel MD Work Phone: [employer] [facility] Pain Management Comment on above: new patient appointm ent Start: 07-31-2023 End: 07-31-2023 ambulatory [facility] Work Phone: Start: 07-31-2023 End: 07-31-2023 Departed Referred [facility] Start: 06-29-2023 End: 06-29-2023 Departed Referred [facility] Start: 06-01-2023 End: 06-01-2023 ambulatory [facility] Work Phone: Start: 06-01-2023 End: 06-01-2023 Departed Referred [facility] Start: 05-23-2023 End: 05-23-2023 Emergency department patient visit Colt Klein DO Work Phone: [facility] ED Comment on above: Urinary tract infect ion associated with indwelling urethral catheter, initial encounter (HCC) (Primary Dx) Start: 05-04-2023 End: 05-04-2023 ambulatory [facility] Work Phone: Start: 05-04-2023 End: 05-04-2023 Departed Referred [facility] Start: 05-04-[address] [facility] Start: 03-25-2023 End: 03-25-2023 ambulatory [facility] Work Phone: Start: 03-25-2023 End: 03-25-2023 Departed Referred [facility] Start: 04-21-2022 ambulatory Cindi Cuellar PA-C Work Phone: [facility] Start: 02-14-2022 End: 02-14-2022 Subsequent hospital visit by physician Mri 2 [facility] (I-Stat/1.5t) [facility] Comment on above: abscess Start: 06-11-2021 AUDIT Byron Whitlock DO Work Phone: [facility] Work Phone: Start: 10-24-2020 End: 10-25-2020 Patient encounter procedure [facility] Start: 10-24-2020 End: 10-27-2020 Patient encounter procedure AMBROSIO MONROY [facility] Start: 10-24-2020 End: 10-25-2020 Subsequent hospital visit by physician Opal Vigil Work Phone: [facility] Tele Comment on above: Muscle spasm (Primar y Dx); Diabetes mellitus without complication (HCC) Start: 06-14-2018 Patient encounter Meliton Karly [facility] Start: 06-11-2018 End: 06-12-2018 Patient encounter JUAN MIGUEL ANN Facility:[id number] Start: 04-29-2018 Patient encounter Ambrosio Monroy [facility] Start: 08-05-2017 End: 08-06-2017 Ambulatory OPAL Barbie YARITZA Facility:[facility] Start: 08-03-2017 Ambulatory OPAL VIGIL Facility:[facility] Start: 05-27-2017 End: 05-28-2017 Ambulatory ELLIOT TORREZ Facility:[facility] Procedures Date Procedure Procedure Detail Performing Clinician Start: 06-02-2025 Follow-up visit Follow-up SAVAGE CASTILLO Start: 04-28-2025 Glucose quantitative blood xcpt reagent [...] metabolic panel calcium total Mary Alice Aguilera POWDER PRESS OPERATOR - NETWORK AND THREAT SUPPORT SPECIALIST Work Phone: Start: 04-26-2025 Glucose quantitative blood [...] 04-25-2025 Basic metabolic panel calcium total Kerwin Cloud DO Work Phone: Start: 04-24-2025 Glucose quantitative blood xcpt reagent strip Kerwin Cloud DO Work Phone: Start: 04-24-2025 Glucose quantitative blood xcpt reagent strip Kerwin Radhames DO Work Phone: Start: 04-24-2025 Glucose quantitative blood xcpt reagent strip Kerwin Cloud DO Work Phone: Start: 04-24-2025 End: 04-24-2025 Glucose quantitative blood xcpt reagent strip Kerwin Cloud DO Work Phone: Start: 04-24-2025 Decalcification procedure Kaela sevilla MD Work Phone: Start: 04-24-2025 End: 04-24-2025 Culture bacterial any source anaerobic iso&id Kaela Durand MD Work Phone: Start: 04-24-2025 End: 04-24-2025 Debridement muscle & fascia 20 sq cm/< Kaela Durand MD Work Phone: Start: 04-24-2025 Basic metabolic panel calcium total Kerwin Cloud DO Work Phone: Start: 04-24-2025 Drug screen quantitative vancomycin Alberto Boogie GYROSCOPE TECHNICIAN Work Phone: Start: 04-23-2025 Glucose quantitative blood xcpt reagent strip Kerwin Cloud DO Work Phone: Start: 04-23-2025 Glucose quantitative blood xcpt reagent strip Kerwin Cloud DO Work Phone: Start: 04-23-2025 Glucose quantitative blood xcpt reagent strip Kerwin Radhames DO Work Phone: Start: 04-23-2025 Glucose quantitative blood xcpt reagent strip Kerwin Cloud DO Work Phone: Start: 04-23-2025 Basic metabolic panel calcium total Kerwin Cloud DO Work Phone: Start: 04-22-2025 Glucose quantitative blood xcpt reagent strip Kerwin Radhames DO Work Phone: Start: 04-22-2025 Glucose quantitative blood xcpt reagent strip Kerwin Radhames DO Work Phone: Start: 04-22-2025 Glucose quantitative blood xcpt reagent strip Kerwin Radhames DO Work Phone: Start: 04-22-2025 Glucose quantitative blood xcpt reagent strip Kerwin Radhames DO Work Phone: Start: 04-22-2025 Drug screen quantitative vancomycin Alberto Boogie GYROSCOPE TECHNICIAN Work Phone: Start: 04-22-2025 Ct pelvis w/contrast [...] 07-10-2024 Mri spinal canal cervical w/o contrast florentinl Otis Mejia MD Work Phone: Start: 05-22-2024 [...] Start: 05-18-2024 Basic metabolic panel calcium total Josefabarbie Khanh Concepcion MD Work Phone: Start: 05-18-2024 Culture bacterial quanttative colony count urine Terri Franco Blanco PA-C Work Phone: Start: 05-18-2024 Urinalysis complete panel - Urine Terri D Blanco PA-C Work Phone: Start: 05-17-2024 Culture bacterial quanttative colony count urine Terri D Blanco PA-C Work Phone: Start: 05-17-2024 Urinalysis complete panel - Urine Terri Franco Blanco PA-C Work Phone: Start: 05-17-2024 End: 05-17-2024 Bacteria identified in Blood by Culture Terri Franco Blanco PA-C Work Phone: Start: 05-17-2024 Basic [...] Glucose quantitative blood xcpt reagent strip Otis Vogt DO Work Phone: Start: 04-19-2024 Ecg routine ecg w/least 12 lds trcg only w/o i&r Otis Vogt DO Work Phone: Start: 04-19-2024 Glucose quantitative [...] Manual Differential panel - Blood Brad Mujica POWDER PRESS OPERATOR - NETWORK AND THREAT SUPPORT SPECIALIST Work Phone: Start: 04-15-2024 Glucose quantitative blood [...] Manual Differential panel - Blood Brad Mujica POWDER PRESS OPERATOR - [facility] Work Phone: Start: 04-15-2024 Drug screen quantitative vancomycin Orquidea Marti MD Work Phone: Start: 04-15-2024 Culture bacterial quanttative colony count urine Brad Mujica POWDER PRESS OPERATOR - [facility] Work Phone: Start: 04-14-2024 End: 04-14-2024 [...] 05-23-2023 Urinalysis complete panel - Urine Colt Henrik Klein DO Work Phone: Start: 05-23-2023 Urnls dip stick/tablet reagent auto microscopy Colt Klein DO Work Phone: Start: 01-23-2022 Lipid 1996 panel - Serum or Plasma Joe Hammer POWDER PRESS OPERATOR - NETWORK AND THREAT SUPPORT SPECIALIST Work Phone: Start: 09-06-2021 Colonoscopy Faisal Simeon DO Work Phone: Start: 10-25-2020 Gluc bld gluc mntr dev cleared fda spec home use Unknown Provider Result Start: 10-25-2020 Gluc bld gluc mntr dev cleared fda spec home use Unknown Provider Result Start: 10-25-2020 Basic metabolic panel calcium total Orlando D Sedar Work Phone: Start: 10-25-2020 Blood count complete auto&auto difrntl wbc Orlando Ivory Work Phone: Start: 10-25-2020 Hemoglobin glycosylated a1c [...] vaccine (adult) (1 - 1-dose 75+ series) [facility] Start: 09-06-2031 Screening for malignant neoplasm of colon [facility] Start: 01-23-2027 Lipid panel Cholesterol [facility] Start: 04-27-2026 Diabetes: Estimated Glomerular Filtration Rate for Kidney Health Diabetes: Estimated Glomerular Filtration Rate for [facility]ney Health [facility] Start: 04-21-2026 Hemoglobin A1c measurement Diabetes: Hemoglobin A1C [facility] Start: 02-16-2026 Screening for malignant neoplasm of lung Lung Cancer Screening [facility] Start: 06-05-2025 Influenza vaccination [facility] Start: 06-02-2025 End: 06-02-2025 Patient encounter procedure 06/02/2025 11:00 AM EDT Office Visit [facility] - [place] [address] [place] [id number] Savage Castillo MD [address] [place] [address] [facility] [place] Start: 05-22-2025 Diabetes: Estimated Glomerular Filtration Rate for Kidney Health Diabetes: Estimated Glomerular Filtration Rate for Kidney Health [facility] Start: 05-06-2025 Diabetes: Estimated Glomerular Filtration Rate for Kidney Health Diabetes: Estimated Glomerular Filtration Rate for Kidney Health [facility] Start: 04-27-2025 Diabetes: Estimated Glomerular Filtration Rate for [facility] Health Diabetes: Estimated Glomerular Filtration Rate for Kidney Health [facility] Start: 04-20-2025 Diabetes: Estimated Glomerular Filtration Rate for Kidney Health Diabetes: Estimated Glomerular Filtration Rate for Kidney Health [facility] Start: 04-20-2025 [facility] Start: 04-15-2025 Diabetes: Estimated Glomerular Filtration Rate for Kidney Health Diabetes: Estimated Glomerular Filtration Rate for Kidney Health [facility] Start: 04-15-2025 Hemoglobin A1c measurement [facility] Start: 04-04-2025 Hemoglobin A1c measurement Hemoglobin A1C [facility] Start: 03-20-2025 End: 03-20-2025 Admission to same day surgery center 03/20/2025 10:00 AM EDT - 03/20/2025 11:30 AM EDT Surgery [facility] [address] [place] [address] Anmol Herbert MD [address] [place] [address] CYSTOSCOPY, RETROPYELOGRAM [facility] Comment on above: CYSTOSCOPY, RETROPYELOGRAM Start: 03-20-2025 End: 03-20-2025 Cysto bladder w/ureteral catheterization [facility] Start: 03-20-2025 End: 03-20-2025 Cysto w/insert ureteral stent [facility] Start: 03-20-2025 End: 03-20-2025 Cysto w/simple removal stone & stent [facility] Start: 03-20-2025 Subsequent hospital visit by physician 03/20/2025 10:00 AM EDT Hospital Encounter [facility] [address] [place] [address] Anmol Herbert MD [address] [place] [address] Other hydronephrosis [N13.39] [facility] Comment on above: Other hydronephrosis [N13.39] Start: 03-14-2025 End: 03-14-2025 Patient encounter procedure 03/14/2025 1:50 PM EDT Office Visit Plastic Surgery [address] [place] [address] Milad Goodson MD [address] [address] [place] sacrum & left ischium Plastic Surgery Comment on above: [place] sacrum & left ischium Start: 01-31-2025 End: 05-02-2025 C reactive protein [Mass/volume] in Serum or Plasma C-REACTIVE PROTEIN Lab Routine Chronic osteomyelitis (HCC) Expected: 01/31/2025, Expires: 05/02/2025 [facility] Comment on above: Expected: 01/31/2025, Expires: Start: 01-31-2025 End: 05-02-2025 Erythrocyte sedimentation rate SEDIMENTATION RATE, WESTERGREN Lab Routine Chronic osteomyelitis (HCC) Expected: 01/31/2025, Expires: 05/02/2025 [facility] Work Phone: Comment on above: Expected: 01/31/2025, Expires: Start: 01-31-2025 End: 05-02-2025 Prealbumin [Mass/volume] in Serum or Plasma PREALBUMIN Lab Routine Chronic osteomyelitis (HCC) Expected: 01/31/2025, Expires: 05/02/2025 [facility] Comment on above: Expected: 01/31/2025, Expires: Start: 11-08-2024 End: 11-08-2024 Telemedicine consultation with patient 11/08/2024 1:30 PM EST Telemedicine [facility] [address] [place] [address] [place] [address] [place] [address] [facility] Start: 11-05-2024 Welcome to Medicare Visit (G0402) Welcome to Medicare Visit (G0402) [facility] Start: 10-16-2024 Hemoglobin A1c measurement HbA1C [facility] Start: 10-11-2024 End: 10-11-2025 MR Pelvis WO and W contrast IV MR pelvis w and wo contrast Imaging Routine Pressure ulcer of sacral region, unspecified stage Expected: 10/11/2024, Expires: 10/11/2025 [employer] Work Phone: Comment on above: Expected: 10/11/2024, Expires: Start: 10-05-2024 Medicare Advantage Annual Wellness Visit Medicare Advantage Annual Wellness Visit [facility] Start: 09-30-2024 End: 09-30-2025 CT Abdomen and Pelvis WO contrast CT [facility] Imaging Routine Gross hematuria Expected: 09/30/2024, Expires: 09/30/2025 [employer] Work Phone: Comment on above: Expected: 09/30/2024, Expires: Start: 09-30-2024 End: 09-30-2024 Patient encounter procedure 09/30/2024 1:00 PM EST Procedure Visit [facility] [address] [place] [address] Faisal Simeon DO [address] [place] [address] [facility] Start: 09-09-2024 End: 09-09-2024 Patient encounter procedure 09/09/2024 2:00 PM EST Procedure Visit [facility] [address] [place] [address] Faisal Simeon DO [address] [place] [address] [facility] Start: 08-22-2024 End: 08-22-2024 Telemedicine consultation with patient 08/22/2024 8:20 AM EST Telemedicine [facility] Rheumat[facility] [address] [facility] [address] [place] [address] Giuliano Shultz DO [address] [place] [address] [facility] Start: 2024 End: 2024 Patient encounter procedure 2024 1:30 PM EDT Office Visit [facility] - [facility] [address] [place] [id number] Carlos Gillette MD [address] [facility] [address] [place] [address] [facility] - [facility] Start: 08-01-2024 End: 08-01-2024 Telemedicine consultation with patient 08/01/2024 9:00 AM EDT Telemedicine [facility] [address] [place] [address] [facility] Start: 07-10-2024 End: 07-10-2024 Patient encounter procedure [facility] Radiology Start: 07-05-2024 Influenza vaccination Influenza Vaccine (#1) [facility] Start: 07-01-2024 End: 07-01-2024 Professional / ancillary services management 07/01/2024 11:00 AM EDT Ancillary Procedure [facility] [address] [place] [address] [facility] Start: 06-14-2024 End: 06-14-2024 Patient encounter procedure 06/14/2024 8:30 AM EDT Office Visit [facility] Pain Management [address] [place] [address] Carlos Gillette MD [address] [place] [address] [facility] Start: 06-13-2024 End: 06-13-2024 Patient encounter procedure 06/13/2024 11:00 AM EDT Office Visit [facility] [address] [place] [address] [facility] Start: 06-13-2024 End: 06-13-2024 Professional / ancillary services management 06/13/2024 9:00 AM EDT Ancillary Procedure [facility] [address] [place] [address] [facility] Start: 06-05-2024 COVID-19 Vaccine () COVID-19 Vaccine () [facility] Start: 06-05-2024 COVID-19 Vaccine ( season) COVID-19 Vaccine ( season) [facility] Start: 06-05-2024 Influenza vaccination [facility] Start: 06-05-2024 [facility] Start: 05-11-2024 End: 05-11-2025 DXA Skeletal system Views for bone density BD BONE DENSITY SURVEY Imaging Routine Sacral insufficiency fracture, initial encounter Expected: 05/11/2024, Expires: 05/11/2025 [email or web address] Work Phone: Comment on above: Expected: 05/11/2024, Expires: Start: 05-11-2024 End: 05-11-2025 MR Cervical spine WO contrast MR C-SPINE W/O Imaging Routine Sacral insufficiency fracture, initial encounter Expected: 05/11/2024, Expires: 05/11/2025 [facility] Comment on above: Expected: 05/11/2024, Expires: 5 Start: 05-11-2024 End: 05-11-2025 MR Thoracic spine WO contrast MR T-SPINE W/O Imaging Routine Sacral insufficiency fracture, initial encounter Expected: 05/11/2024, Expires: 05/11/2025 [facility] Comment on above: Expected: 05/11/2024, Expires: Start: 05-11-2024 End: 05-11-2024 Patient encounter procedure [facility] Orthopedic Spine Comment on above: Sacral insufficiency fracture, initial e ncounter (Primary Dx) Start: 05-06-2024 End: 04-20-2025 Bacteria identified in Blood by Culture [facility] Work Phone: Start: 05-05-2024 End: 05-05-2024 Admission to same day surgery center 05/05/2024 12:30 PM EDT - 05/05/2024 2:30 PM EDT Surgery [facility] MA[facility] OR [address] [place] [address] Dashawn Grimm MD [address] [facility] [address] [place] [address] CYSTOSCOPY [70954 (CPT )] [facility] Comment on above: CYSTOSCOPY [63587 (CPT )] Start: 05-05-2024 End: 05-05-2024 ambulatory [facility] Start: 05-05-2024 End: 05-05-2024 Anesthesia consultation 05/05/2024 12:30 PM EDT Anesthesia Event [facility] [address] [place] [phone] Waleska Stein, POWDER PRESS OPERATOR - NETWORK AND THREAT SUPPORT SPECIALIST [address] [place] [address] [facility] Start: 05-05-2024 End: 05-05-2024 Cysto w/insert ureteral stent [facility] Start: 05-05-2024 End: 05-05-2024 Cysto w/ureteroscopy w/lithotripsy [facility] Start: 05-05-2024 End: 05-05-2024 Cystourethroscopy [facility] Start: 05-05-2024 End: 05-05-2024 Litholapaxy comp/lg > 2.5 cm [facility] Start: 05-05-2024 Subsequent hospital visit by physician 05/05/2024 12:30 PM EDT Hospital Encounter [facility] [address] [place] [phone] Dashawn Grimm MD [address] [address] [facility] Start: 04-27-2024 End: 04-27-2024 Admission to establishment 04/27/2024 2:00 PM EDT Pre-Admission Testing [facility] Pre-Admit Testing [address] [facility] [place] [address] Dashawn Grimm MD [address] [address] [facility] Pre-Admit Testing Start: 04-27-2024 End: 04-27-2024 ambulatory [facility] Pre-Admit Testin g Start: 04-21-2024 End: 04-21-2024 Patient encounter procedure 04/21/2024 8:45 AM EDT Office Visit [facility] Pain Management [address] [place] [phone] Carlos Gillette MD [address] [place], [place] [phone] [facility] Management Start: 04-05-2024 End: 04-05-2024 Patient encounter procedure 04/05/2024 2:30 PM EDT Appointment [facility] Radiology [address] [place] [address] [facility] Start: 04-04-2024 Welcome to Medicare Visit (G0402) Welcome to Medicare Visit (G0402) [facility] Start: 03-30-2024 End: 03-30-2024 Patient encounter procedure 03/30/2024 4:00 PM EDT Office Visit [facility] Pain Management [address] [place], [place] [phone] Carlos Gillette MD [address] [facility] [place] [phone] [facility] Start: 02-10-2024 End: 02-09-2025 MR Lumbar spine WO and W contrast IV MR L-SPINE W/+W/O Imaging Routine Paraplegia (HCC) History of lumbar fusion Expected: 02/10/2024, Expires: 02/09/2025 [email or web address] Work Phone: Comment on above: Expected: 02/10/2024, Expires: Start: 12-29-2023 End: 12-29-2023 Patient encounter procedure 12/29/2023 2:45 PM EDT Office Visit [facility] Pain Management [address] [place] [phone] Carlos Gillette MD [address] [facility] [place] [phone] (work) [facility] Start: 06-05-2023 COVID-19 Vaccine ( season) COVID-19 Vaccine ( season) [facility] Start: 06-05-2023 Influenza vaccination Influenza Vaccine (#1) [facility] Start: 06-05-2023 [facility] Start: 01-23-2023 Hemoglobin A1c measurement Diabetes: Hemoglobin A1C [facility] Start: 01-23-2023 Hepatitis B surface antibody level LDL CHOLESTEROL [facility] Start: 01-23-2023 Lipid panel Lipid Panel [facility] Start: 12-27-2022 Diabetes: Urine Albumin-Creatinine Ratio for Kidney Health Diabetes: Urine Albumin-Creatinine Ratio for Kidney Health [facility] Start: 07-25-2022 Hemoglobin A1c/Hemoglobin.total in Blood HBA1C [facility] Start: 06-05-2022 Influenza vaccination [facility] Start: 10-25-2021 HbA1c (Bld) [Mass fraction] A1C test (Diabetic or Prediabetic) [place], [place] Start: 10-25-2021 Hemoglobin A1c measurement Diabetes: Hemoglobin A1C [facility] Start: 2021 Hepatitis B (HBV) Vaccine (optional start 60+ years) Hepatitis B (HBV) Vaccine (optional start 60+ years) [facility] Start: 2021 Hepatitis B Vaccines (1 of 3 - Risk 3-dose series) Hepatitis B Vaccines (1 of 3 - Risk 3-dose series) [facility] Start: 2021 RSV Immunization aged 60 or older (1 - 1-dose 60+ series) RSV Immunization aged 60 or older (1 - 1-dose 60+ series) [facility] Start: 2021 RSV Immunization for Adults (1 - Risk 60-74 years 1-dose series) RSV Immunization for Adults (1 - Risk 60-74 years 1-dose series) [facility] Start: 2021 RSV Vaccine (1 - Risk 60-74 years 1-dose series) RSV Vaccine (1 - Risk 60-74 years 1-dose series) [facility] Start: 2021 RSV vaccine (optional 60+ years) RSV vaccine (optional 60+ years) [facility] Start: 2021 [facility] Start: 11-20-2020 End: 11-20-2020 Office Visit 11/20/2020 Office Visit Neurosurgery Opal Vigil MD [address] [address] [facility] Start: 11-06-2020 End: 11-06-2020 Office Visit [facility] Start: 06-05-2020 Influenza vaccination Flu vaccine (#1) [place], [place] Start: 01-05-2018 Lipid panel Lipid screen [place], [place] Start: 2016 PROSTATE CANCER SCREENING DISCUSSION PROSTATE CANCER SCREENING DISCUSSION [facility] Start: 2016 Prostate specific antigen measurement Prostate Cancer Screening Discussion [facility] Start: 2011 Pneumococcal vaccination Pneumococcal Vaccine(s) (50+ yrs) (1 of 1 - PCV) [facility] Start: 2011 Screening for malignant neoplasm of colon Colon cancer screen colonoscopy [place], [place] Start: 2011 Screening for malignant neoplasm of lung Lung Cancer Screening [facility] Start: 2011 Shingles (RZV) Vaccine (1 of 2) Shingles (RZV) Vaccine (1 of 2) [facility] Start: 2011 Shingles Vaccine (1 of 2) Shingles Vaccine (1 of 2) [place], [place] Start: 2011 SHINGRIX VACCINE (1 of 2) SHINGRIX VACCINE (1 of 2) [facility] Start: 2011 Zoster Vaccines (1 of 2) Zoster Vaccines (1 of 2) [facility] Start: 2011 [facility] Start: 2006 COLOGUARD (FIT-DNA) COLOGUARD (FIT-DNA) [facility] Start: 2006 Colonoscopy COLONOSCOPY [facility] Start: 2006 COLORECTAL CANCER SCREENING COLORECTAL CANCER SCREENING [facility] Start: [address] COLONOGRAPHY [facility] Start: 2006 FECAL OCCULT BLOOD FECAL OCCULT BLOOD [facility] Start: 2006 Prostate specific antigen measurement Prostate Cancer Screening Discussion [facility] Start: 2006 Screening for malignant neoplasm of colon [facility] Start: 2006 SIGMOIDOSCOPY SIGMOIDOSCOPY [facility] Start: 1996 Lipid panel Cholesterol [facility] Start: 1980 DTaP/Tdap/Td vaccine (1 - Tdap) DTaP/Tdap/Td vaccine (1 - Tdap) [place], [place] Start: 1980 DTaP/Tdap/Td Vaccines (1 - Tdap) DTaP/Tdap/Td Vaccines (1 - Tdap) [facility] Start: 1980 Hepatitis A (HAV) Vaccine (optional start 19+ years) Hepatitis A (HAV) Vaccine (optional start 19+ years) [facility] Start: 1980 Hepatitis B vaccine (1 of 3 - Risk 3-dose series) Hepatitis B vaccine (1 of 3 - Risk 3-dose series) [place] Start: 1980 Pneumococcal Vaccine: 50+ (1 of 2 - PCV) Pneumococcal Vaccine: 50+ (1 of 2 - PCV) [facility] Start: 1980 Pneumococcal Vaccine: 50+ Years (1 of 2 - PCV) Pneumococcal Vaccine: 50+ Years (1 of 2 - PCV) [facility] Start: 1980 Urine microalbumin profile [facility] Start: 1980 [facility] Start: 1979 ANNUAL PCP TEAM CHRONIC DISEASE VISIT ANNUAL PCP TEAM CHRONIC DISEASE VISIT [facility] Start: 1979 Anxiety Screening Anxiety Screening [facility] Start: 1979 Depression Screening Depression Screening [facility] Start: 1979 Diabetes: Urine Albumin-Creatinine Ratio for Kidney Health Diabetes: Urine Albumin-Creatinine Ratio for Kidney Health [facility] Start: 1979 Diabetic microalbuminuria test Diabetic microalbuminuria test [place], [place] Start: 1979 Hepatitis C screening [facility] Start: 1979 Tetanus + diphtheria + acellular pertussis vaccine (product) Tdap Booster [facility] Start: 1979 [facility] Start: 1977 ONE PNEUMOVAX PRIOR TO AGE 65 ONE PNEUMOVAX PRIOR TO AGE 65 [facility] Start: 1976 HIV screening [facility] Start: 1973 Adult depression screening assessment DEPRESSION SCREENING [facility] Start: 1973 Depression Monitoring Depression Monitoring [facility] Start: 1973 [facility] Start: 1971 3 comp foot exam completed DIABETIC FOOT EXAM [facility] Start: 1971 Diabetic foot examination [facility] Start: 1971 Diabetic retinal exam Diabetic retinal exam [facility] Start: 1971 Glaucoma screening [facility] Start: 1971 Hepatitis B screening URINE ALBUMIN:CREATININE RATIO [facility] Start: 1971 Hepatitis C antibody, confirmatory test DILATED RETINAL EXAM [facility] Start: 1971 Preventive dental service [facility] Start: 1967 PNEUMOCOCCAL (1 - PCV) PNEUMOCOCCAL (1 - PCV) [facility] Start: 1967 Pneumococcal 0-64 years Vaccine (1 of 1 - PPSV23) Pneumococcal 0-64 years Vaccine (1 of 1 - PPSV23) [facility] Start: 1967 Pneumococcal Vaccine: Pediatrics (0 to 5 Years) and At-Risk Patients (6 to 64 Years) (1 - PCV) Pneumococcal Vaccine: Pediatrics (0 to 5 Years) and At-Risk Patients (6 to 64 Years) (1 - PCV) [facility] Start: 1967 Pneumococcal Vaccine: Pediatrics (0 to 5 Years) and At-Risk Patients (6 to 64 Years) (1 of 2 - PCV) Pneumococcal Vaccine: Pediatrics (0 to 5 Years) and At-Risk Patients (6 to 64 Years) (1 of 2 - PCV) [facility] Start: 1967 [facility] Start: 1966 COVID-19 VACCINE (#1) COVID-19 VACCINE (#1) [facility] Start: 1962 MMR Vaccines (1 of 1 - Standard series) MMR Vaccines (1 of 1 - Standard series) [facility] Start: 1962 [facility] Start: 02-01-1962 COVID-19 VACCINE (#1) COVID-19 VACCINE (#1) [facility] Start: 1961 Hepatitis C screening [facility] Start: 1961 HIV screening [facility] Start: 1961 Lipid panel [facility] Start: 1961 Medicare Annual Wellness (AWV) Medicare Annual Wellness (AWV) [facility] Start: 1961 Screening for malignant neoplasm of colon [facility] Start: 1961 [facility] End: 08-22-2025 25 hydroxy includes fractions if performed VITAMIN D, 25-HYDROXY Lab Routine Osteoporosis, unspecified osteoporosis type, unspecified pathological fracture presence 1 Occurrences starting 08/22/2024 until 08/22/2025 [facility] Comment on above: 1 Occurrences starting 08/22/2024 until 08/22/2025 Aerobic and Anaerobi c Culture with Stain [employer] Work Phone: Comment on above: Release Upon Ordering for 1 Occurrences starting 05/05/2024 Aerobic and Anaerobi c Culture with Stain [employer] Work Phone: Comment on above: Release Upon Ordering for 1 Occurrences starting 04/24/2025 End: 08-22-2025 Assay of parathormone PARATHYROID HORMONE INTACT Lab Routine Osteoporosis, unspecified osteoporosis type, unspecified pathological fracture presence 1 Occurrences starting 08/22/2024 until 08/22/2025 [facility] Comment on above: 1 Occurrences starting 08/22/2024 until 08/22/2025 Bacteria identified in Blood by Culture [employer] Work Phone: End: 04-14-2024 Bacteria identified in Lower respiratory specimen by Aerobe culture [facility] Bacteria identified in Unspecified specimen by Aerobe culture Culture, Aerobic Bacteria with Gram Stain Microbiology Routine Calculus of ureter 05/05/2024 4:14 PM EDT [facility] End: 05-05-2024 Bacteria identified in Unspecified specimen by Anaerobe culture [facility] [employer] Comment on above: Once for 1 Occurrences starting 05/05/20 24 until 05/05/2024 Bacteria identified in Unspecified specimen by Anaerobe culture [facility] End: 05-23-2023 Bacteria identified in Urine by Culture [employer] Work Phone: Comment on above: Once (Lab) for 1 Occurrences starting until 05/23/2023 Basic metabolic 2000 panel Basic Metabolic Panel Lab Routine Daily until discontinued starting 10/25/2020, 1 completed [facility] [place] [place] Comment on above: Daily until discontinued starting 2020, 1 completed End: 08-22-2025 Basic metabolic 2000 panel - Serum or Plasma BASIC METABOLIC PANEL Lab Routine Osteoporosis, unspecified osteoporosis type, unspecified pathological fracture presence 1 Occurrences starting 08/22/2024 until 08/22/2025 [employer] Work Phone: Comment on above: 1 Occurrences starting 08/22/2024 until 08/22/2025 Calculi Analysis(Stone) [employer] Comment on above: Release Upon Ordering for 1 Occurrences starting 05/05/2024 CBC Auto Differential CBC Auto D ifferential Lab Routine Daily until discontinued starting 10/25/2020, 1 completed [facility] Comment on above: Daily until discontinued starting 2020, 1 completed End: 04-14-2024 Fungus identified in Unspecified specimen by Culture [employer] Work Phone: Fungus identified in Unspecified specimen by Culture Fungal Culture Microbiology Routine Calculus of ureter 05/05/2024 4:14 PM EDT [facility] End: 04-14-2024 Lactic acid with reflex [facility] Work Phone: Oxygen therapy [[facility]ini [facility] Data Set] Initiate Oxygen Therapy Protocol Respiratory Care Routine Daily until discontinued starting 10/24/2020 [facility] Comment on above: Daily until discontinued starting 2020 PO[facility] glucose [facility] Comment on above: 4X Daily (AC & HS) until discontinued st arting 10/25/2020 As Needed until disc ontinued starting 10/24/2020 End: 08-22-2025 Protein electrophoretic fractj&quantj serum ELECTROPHORESIS, SERUM PROTEIN Lab Routine Osteoporosis, unspecified osteoporosis type, unspecified pathological fracture presence 1 Occurrences starting 08/22/2024 until 08/22/2025 [facility] Comment on above: 1 Occurrences starting 08/22/2024 until 08/22/2025 Spirometry panel Incentive negin metry RT Respiratory Care Routine Every 2hr while awake until discontinued starting 10/24/2020 [employer] Comment on above: Every 2hr while awake until discontinued starting 10/24/2020 End: 04-14-2024 Urinalysis complete panel - Urine [employer] Work Phone: Immunizations Immunization Date Immunization Notes Care Provider Fa anabela 07-12-2024 Hemoglobin A1C [facility] 04-04-2024 Hemoglobin A1C [facility] Payers Date Payer Category Payer Medicare (Managed Care) 1.2. [id number] 2024 Medicare HMO [employer] MEDICARE [id number] 2024 Medicare [id number] 2024 Self-pay [id number] 2024 Medicare [id number] 2024 Medicare S MEDICARE [id number] 2024 Unknown [id number] 2024 Unknown [id number] 2022 Medicaid [id number] [facility] MEDICAID [facility] MEDICAID [id number] 2021-Present [phone] [address] [place] [address] Medicaid [id number] 2016 Unknown [id number] 2008 Unknown 1961 Unknown [id number] 1961 Unknown [id number] 1961 Unknown [id number] 1961 Unknown [id number] 1961 Unknown [id number] 2.16.840.1.430221.3.579.2. 732 1960 Unknown [id number] 2.16.840.1.355372.3.579.2. 732 1960 Unknown [id number] 2.16.840.1.066596.3.579.2. 732 1960 Unknown [id number] 2.16.840.1.888916.3.579.2. 732 1960 Unknown [id number] 2.16.840.1.472516.3.579.2. 732 1960 Unknown [id number] 2.16.840.1.100990.3.579.2. 732 1960 Unknown [id number] 2.16.840.1.077684.3.579.2. 732 1960 Unknown [id number] 2.16.840.1.024055.3.579.2. 732 1960 Unknown [id number] 2.840.1.801599.3.579.2. 732 1960 Unknown [id number] 2.840.1.829336.3.579.2. 732 Unknown [id number] 2.840.1.902897.3.579.2. 462 Unknown [id number] 2.840.1.467719.3.579.2. 462 Unknown [id number] 2.840.1.673924.3.579.2. 462 Unknown [id number] 2.840.1.701684.3.579.2. 462 Unknown [id number] 2.840.1.536755.3.579.2. 462 Unknown [id number] 2.840.1.252976.3.579.2. 462 Unknown [id number] 2.840.1.521026.3.579.2. 462 Unknown [id number] 2.840.1.810724.3.579.2. 462 Unknown [id number] 2.840.1.004390.3.579.2. 462 Unknown [id number] 2.840.1.112291.3.579.2. 462 Unknown [id number] 2.840.1.676503.3.579.2. 462 Unknown [id number] 2.840.1.218713.3.579.2. 462 Unknown [id number] .840.1.409835.3.579.2. 462 Unknown [id number] 2.840.1.162853.3.579.2. 462 Unknown [id number] 2.840.1.033154.3.579.2. 462 Unknown [id number] 2.840.1.429614.3.579.2. 462 Unknown [id number] 2.16.840.1.005969.3.579.2. 462 Unknown [id number] 2.16.840.1.950905.3.579.2. 462 Unknown [id number] 2.16.840.1.336621.3.579.2. 462 Unknown [id number] 2.840.1.202014.3.579.2. 462 Unknown [id number] 2.840.1.255221.3.579.2. 462 Social History Date Type Detail Facility Start: 10-05-1977 End: 04-27-2024 Tobacco smoking status NHIS Current every day smoker [facility] Start: 10-24-2020 End: 04-27-2024 Tobacco use and exposure Never used [place] Start: 10-24-2020 End: 04-24-2025 Alcohol intake Current non-drinker of alcohol (finding) [place] Start: 10-15-2020 History SDOH Food Worry 1 [place] Start: 10-15-2020 History SDOH Transport Med 2 [place] Start: 12-21-2016 Alcohol Comment occ [place] Start: 1960 Sex Assigned At Not on file [place] Start: 05-13-2023 End: 05-23-2023 Exposure to SARS-CoV-2 (event) Not sure [place] Start: 08-09-2013 End: 04-22-2025 Current every day smoker Current every day smoker [facility] Start: 10-05-1977 History of tobacco use Cigarette Smoker [facility] Start: 1960 Sex Assigned At Male [facility] Start: 01-27-2022 End: 02-06-2022 Exposure to SARS-CoV-2 (event) Unable to assess [facility] Start: 12-29-2023 End: 04-22-2025 Gender identity Not on file [facility] Tobacco smoking stat us KYIS Tobacco smoking consumption unknown [facility] Has the [employer], [employer], or [employer] threatened to shut off services in your [...] Start: 05-05-2022 End: 11-27-2023 Sex Male (finding) [employer] Work Phone: Start: 11-29-2021 Gender identity Identifies as male gender (finding) [facility] Start: 10-23-2023 Sexual orientation Heterosexual (finding) [facility] Medical Equipment Procedure Code Equipment Code Equipment Origin al Text Equipment Identifier Dates Graft Infuse 20g a Medium Bovine Collagen Rhbmp-2 2x1in Bone Vial Absorbable - [id number] Start: 01-14-2022 Substitute Mastergraft Calcium Phosphate Collagen Bone Graft Putty Void - [id number] Start: 12-12-2021 Substitute Mastergraft 10cm Bone Graft Strip 12ml Spine - [id number] Start: 01-14-2022 Substitute Mastergraft 10cm Bone Graft Strip 12ml Spine - [id number] Start: 01-14-2022 Creo Thread 6.5 X 45mm Polyaxial Screw [id number] Start: 01-14-2022 5.5mm Straight R od Ti Alloy 15cm [id number] Start: 01-14-2022 Creo Thread 6.5 X 5cm Polyaxial Screw [id number] Start: 01-14-2022 Thread Locking C ap Creo [id number] Start: 01-14-2022 5.5mm Curved Bart Ti Alloy 45mm [id number] Start: 12-12-2021 Thread Locking C ap Creo [id number] Start: 12-12-2021 Creo Thread 6.5 X 5cm Polyaxial Screw [id number] Start: 12-12-2021 Sable Spacer 6-1 2mm X 10mm X 26mm 8deg [id number] Start: 12-12-2021 [id number] Start: 04-14-2024 [id number] Start: 04-14-2024 Stent Uret 6fr 2 2cm Gw - [id number] Start: 05-05-2024 Stent Uret 6fr 2 2cm Gw - [id number] Start: 05-05-2024 Functional Status Date Assessment Result Facility 04-21-2025 Total score [AUDIT-C] 0 04/21/20 25 10:31 PM EDT Giovana Barnard RN [facility] 02-22-2025 Are you deaf, or do you have serious difficulty hearing No 02/22/2025 8:55 PM EDT Nahun Gunderson RN No [facility] 02-22-2025 Are you blind, or do you have serious difficulty seeing, even when wearing glasses No 02/22/2025 8:55 PM EDT Nahun Gunderson RN No [facility] 02-22-2025 Do you have serious difficulty walking or climbing stairs Yes 02/22/2025 8:55 PM EDT Nahun Gunderson RN Yes [facility] 02-22-2025 Do you have difficul ty dressing or bathing Yes 02/22/2025 8:55 PM EDT Nahun Gunderson RN Yes [facility] 02-22-2025 Because of a physica l, mental, or emotional condition, do you have difficulty doing errands alone such as visiting a physician's office or shopping Yes 02/22/2025 8:55 PM Nahun Hollingsworth RN Yes [facility] 01-24-2022 Are you deaf, or do you have serious difficulty hearing No 01/24/2022 5:46 PM EDTiffanie Butler RN No [facility] 01-24-2022 Are you blind, or do you have serious difficulty seeing, even when wearing glasses No 01/24/2022 5:46 PM Tiffanie Boston RN No [facility] 01-24-2022 Do you have serious difficulty walking or climbing stairs Yes 01/24/2022 5:46 PM Tiffanie Boston RN Yes [facility] 01-24-2022 Do you have difficul ty dressing or bathing Yes 01/24/2022 5:46 PM Tiffanie Boston RN Yes [facility] 01-24-2022 Because of a physica l, mental, or emotional condition, do you have difficulty doing errands alone such as visiting a physician's office or shopping No 01/24/2022 5:46 PM EDT Tiffanie Womack, RN No [facility] Mental Status Date Assessment Result Facility 02-22-2025 Because of a physica l, mental, or emotional condition, do you have serious difficulty concentrating, remembering, or making decisions No 02/22/2025 8:55 PM EDT Nahun Gunderson, LIBRADO No [facility] 01-24-2022 Because of a physica l, mental, or emotional condition, do you have serious difficulty concentrating, remembering, or making decisions No 01/24/2022 5:46 PM EDT Tiffanie Womack, LIBRADO No [facility] Clinical Notes 01-16-2021 to 06-02-2025 Savage Castillo MD - 06/02/2025 11:00 AM EDTTelephone Encounter - Noemi Spence RN - 05/25/2025 11:01 AM EDTTelephone Encounter - Cheryl Pimentel LPN - 05/24/2025 9:13 AM EDTDischarge Instr - Diet Note Date & Type Note Facility 06-02-2025 History of Present illness Narrative Images from the original note were not included. [facility] INFECTIOUS DIS [address] [place] [id number] Post-Discharge Hospital Follow Up Date of Hospital Admission: 04/21/25 Date of Hospital Discharge: 04/28/25 Readmission Risk Score: Predictive Model Details 20% Factor Value Risk of Hospital Admission or ED Visit Model 37% Is in Relationship Yes 28% Number of ED Visits 2 13% Number of Hospitalizations 2 6% Has Anemia Yes 5% Has Medicare Yes 5% Has Depression Yes 5% Has Diabetes Yes 1% Has PCP Yes ASSESSMENT/PLAN 1. Pressure injury of coccygeal region, stage 3 (HCC) 2. Other acute osteomyelitis, other site (HCC) 3. MRSA (methicillin resistant Staphylococcus aureus) infection 4. Encounter for long-term (current) use of antibiotics 5. Paraplegia (HCC) Overall healing well- continue antibiotics to 06/06 as previously outlined. OK to pull pICC afterwards and no additional po tail necessary. Continue VAC dressing, defer to Surgery duration necessary. Recommend follow up with [facility] Surgery- Dr. Kaela Durand who performed I+D on 04/24 and bone biopsy. Follow up if symptoms worsen or fail to improve. Medical Decision Making moderate Follow up if symptoms worsen or fail to improve. Savage Castillo MD 06/02/25 11:07 AM SUBJECTIVE 64 M paraplegic with NGB, and wrosening of decubitus ulcer( L ischium), admitted in April requiring excisional I+D of necrotic ulcer and bone biopsy per Surgery- cx+ E raffinosus and MRSA. Patient dishcarged back to [facility] with IV Vancomycin and Unasyn per ID to complete 6 weeks course to 06/06. Here for EOT visit. No new issues since discharge, still on wound VAC therapy, and per patient, wound is healing, improved. Denies S/E from antibiotics. NO issues with PICC line. Came in a motorized wheelchair, accompanied by his brother. Inpatient course: Discharge summary reviewed Interval History As above- since discharge, continues on IV antibiotics to 06/06. Still on Wound VAC at [facility]. Overall doing better. I have performed a medication reconciliation during this visit and have reconciled the medications patient is taking as of now against medications ordered at time of hospital discharge. Current Outpatient Medications: ampicillin-sulbactam 3,000 mg in sodium chloride 0.9 % 100 mL IVPB, Infuse 3,000 mg into a venous catheter every 6 hours. stop date of antibiotic is 06/06/2025, Disp: , Rfl: apixaban (Eliquis) 5 MG tablet, Take 5 mg by mouth twice a day., Disp: , Rfl: bisacodyl (Dulcolax) 5 MG EC tablet, Take 5 mg by mouth Daily as needed for constipation. Do not crush, chew, or split., Disp: , Rfl: calcium carbonate (Tums) 500 MG chewable tablet, 1,000 mg every 8 hours as needed for indigestion or heartburn., Disp: , Rfl: cyclobenzaprine (Flexeril) 10 MG tablet, Take 10 mg by mouth 3 times daily as needed for muscle spasms., Disp: , Rfl: DULoxetine (Cymbalta) [address] capsule, Take 30 mg by mouth daily., Disp: , Rfl: ferrous sulfate 325 (65 Fe) MG tablet, Take 325 mg by mouth daily (with breakfast)., Disp: , Rfl: insulin glargine (Lantus) 100 UNIT/ML injection, Inject 28 Units under the skin every morning., Disp: , Rfl: Insulin Lispro (Humalog) 100 UNIT/ML solution injection, Inject 0-18 Units under the skin 3 times daily (with meals). High Dose Correction Algorithm Glucose: Dose: LESS than 150 No Insulin 150-199 3 Units 200-249 6 Units 250-299 9 Units 300-349 12 Units 350-400 15 Units Above 400 18 Units, Disp: , Rfl: Insulin Lispro (Humalog) 100 UNIT/ML solution injection, Inject 0-18 Units under the skin Nightly. If eating or bolus tube feeding: High Dose Correction Algorithm Glucose: Dose: LESS than 150 No Insulin 150-199 3 Units 200-249 6 Units 250-299 9 Units 300-349 12 Units 350-400 15 Units Above 400 18 Units, Disp: , Rfl: linaGLIPtin (Tradjenta) 5 MG tablet, 5 mg daily., Disp: , Rfl: midodrine (Proamatine) 10 MG tablet, Take 10 mg by mouth 3 times a day., Disp: , Rfl: mirtazapine (Remeron) 7.5 MG tablet, Take 7.5 mg by mouth Nightly., Disp: , Rfl: Multiple Vitamin (multivitamin) capsule, Take 1 capsule by mouth daily., Disp: , Rfl: naloxone (Narcan) 4 MG/0.1ML nasal spray, Administer 1 spray (4 mg) into affected nostril(s) as needed for opioid reversal. May repeat every 2-3 minutes if needed, alternating nostrils, until medical assistance becomes available., Disp: , Rfl: oxyCODONE (Roxicodone) 15 MG immediate release tablet, Take 1 tablet (15 mg) by mouth 4 times daily., Disp: 12 tablet, Rfl: 0 polyethylene glycol, PEG, 3350 (Miralax) 17 g packet, Take 17 g by mouth in the morning and 17 g in the evening., Disp: , Rfl: pregabalin (Lyrica) 200 MG capsule, Take 1 capsule (200 mg) by mouth 3 times daily., Disp: , Rfl: senna-docusate (Cheyenne-Colace) 8.6-50 MG tablet, Take 2 tablets by mouth twice a day., Disp: , Rfl: tamsulosin (Flomax) 0.4 MG 24 hr capsule, Take 1 capsule (0.4 mg) by mouth daily., Disp: , Rfl: vancomycin IVPB 1500 mg in 250 mL NS (premix), Infuse 250 mL (1,500 mg) into a venous catheter every 12 hours. stop date of antibiotic is 06/06/2025, Disp: , Rfl: Review of Systems Constitutional: Negative for chills, fatigue and fever. Gastrointestinal: Negative. Genitourinary: Positive for difficulty urinating (santana changed monthly). Skin: Positive for wound (per HPI). Neurological: Positive for weakness (paraplegia). All other systems reviewed and are negative. OBJECTIVE BP 130/77 (BP Location: Left arm, Patient Position: Sitting, BP Cuff Size: Adult) Pulse 78 Temp 36.4 C (97.6 F) (Temporal) SpO2 99% Physical Exam Vitals reviewed. Constitutional: General: He is not in acute distress. Appearance: He is not ill-appearing or toxic-appearing. Cardiovascular: Rate and Rhythm: Normal rate and regular rhythm. Pulses: Normal pulses. Heart sounds: Normal heart sounds. No murmur heard. Pulmonary: Effort: Pulmonary effort is normal. No respiratory distress. Breath sounds: Normal breath sounds. No wheezing. Abdominal: General: There is no distension. Palpations: Abdomen is soft. Tenderness: There is no abdominal tenderness. Musculoskeletal: General: Signs of injury (sacral decub smaller, shallow-healing, macerated edge, no purulence; L ischial decub ulcer- improved, macerated edges, no purulence, no odor.) present. Skin: Findings: No erythema or rash. Neurological: Mental Status: He is alert. Motor: Weakness (paraplegia with limb atrophy) present. Psychiatric: Mood and Affect: Mood normal. Thought Content: Thought content normal. Labs reviewed, CRP improved, and CBC WNL. documented in this encounter [facility] 05-25-2025 Miscellaneous Notes Received a call from nurse Nikki [phone] stating Vanc tr this week is 17 and asking if IV Vanc can be hung. Told her yes, hang Vanc as trough is within therapeutic range. Per Nikki, they will obtain another Vanc level on 05/29. Received a call from Clement nurse at [facility]. She stated the labs that were supposed [...] labs are received. documented in this encounter [facility] 05-25-2025 Telephone encounter Note Received a call from nurse Nikki [phone] stating Vanc tr this week is 17 and asking if IV Vanc can be hung. Told her yes, hang Vanc as trough is within therapeutic range. Per Nikki, they will obtain another Vanc level on 05/29. [facility] 05-24-2025 Telephone encounter Note Received a call from Clement nurse at [facility]. She stated the labs that were supposed [...] vanc until this weeks labs are received. [facility] 04-28-2025 Nurse Note Called report to the [facility]. PICC line clean dry and intact. Aide got pt ready and gathered all belongings. Waiting on transport to arrive. [facility] 04-28-2025 Nurse Note Called report to the [facility]. PICC line clean dry and intact. Aide got pt ready and gathered all belongings. Waiting on transport to arrive. Patient dressings changed as per orders. Patient tolerated well. Left PICC dressing changed patient tolerated well documented in this encounter [facility] 04-28-2025 Note Discharge Summary Anmol Reynolds [...] High Dos (more content not included)... [facility] 04-28-2025 Hospital course Narrative Images from the original note were not included. Discharge Summary Anmol Franco Gail : 1960 ADMIT DATE: 04/21/2025 DISCHARGE DATE: [...] Complexity: follow up within 7-14 calendar days (89270) [] Severe Complexity: follow up within 7 calendar days (89630) FOLLOW UP TESTING, PENDING RESULTS OR REFERRALS AT TRANSITIONAL CARE VISIT: [] Yes [] No PENDING STUDIES: DISPOSITION: Skilled Facility FACILITY/HOME CARE AGENCY NAME: Follow up with Tab Dupont PCP - General Internal Medicine [phone] [facility] [address] [facility] [phone] Next Steps: Schedule an appointment as soon as possible for a visit in 1 week(s) [facility] Wound Ostomy Wound Care [phone] [place] [phone] Next Steps: Schedule an appointment as soon as possible for a visit Kaela Durand MD Surgical Critical Care General Surgery Trauma Surgery [phone] [address] [facility] [address] [facility] [phone] Next Steps: Schedule an appointment as soon as possible for a visit in 2 week(s) Savage Castillo MD Infectious Diseases [phone] [address] [facility] [address] [facility] [address] Next Steps: Schedule an appointment as soon [...] 04/28/2025, 2:45 PM documented in this encounter [facility] 04-28-2025 Plan of care note Proteus is sensitive to unasyn. OPAT for unasyn and vancomycin completed and scanned into media with stop date of 06/06. Follow up with Dr. Castillo. D/w TCC. Plans for discharge to SNF. Jo-Ann Ortiz MD [facility] Work Phone: 04-28-2025 Miscellaneous Notes Proteus is sensitive to unasyn. OPAT for unasyn and vancomycin completed and scanned into media with stop date of 06/06. Follow up with Dr. Castillo. D/w TCC. Plans for discharge to SNF. Jo-Ann Ortiz MD Confirmed pickup time of 5:30pm on 04/28/25 by transport [employer] Carlos Obrien at phone number [phone]. Location of facility drop off is [facility]. [facility] on secure chat. Transport requested in Roundtrip in will call to [facility] per [facility]. Care Management Progress Note Short Medical why still here: continues to be treated for osteomyelitis. ID following- awaiting sensitivities for final IV plan. Currently receiving IV unasyn and vanc. PICC Line intact for antic 6wk course. Planned Discharge Disposition: plan for return to [facility]- will NOT need auth. PRODUCTION TECH to place pt in roundtrip under will call for transport assist. Barriers/Today we still Wait: need opat/final plan for discharge. Length of Stay (Days): 6 GMLOS: 8.[address] Castillo- s/p L ischial wound debridement with osteomyelitis. [...] Planned Discharge Disposition: Plan for return to [facility]- does not need auth. Barriers/Today we still Wait: ID plan/opat. Length of Stay (Days): 5 GMLOS: 8.4 Care Management Progress Note Short Medical why still here: Pt continues to be treated for osteomyelitis. Receiving IV merrem q8hr with plan for 6wk tx per ID-final plan not complete. Planned Discharge Disposition: plan for return to [facility]- will need auth d/t skilled need for IV atb tx. Facility updated and asked to submit for auth. ADELINE complete. Barriers/Today we still Wait: Plan from ID/line placement and auth. Length of Stay (Days): 4 GMLOS: 8.4 Care Management Progress Note Short Medical why still here: Pt continues to be treated for osteomyelitis. ID following- receiving IV merrem and vanc- anticipate fci tx. Planned Discharge Disposition: Pt from [facility]- met with pt this afternoon- introduced self and role. Verified return when stable. Will need auth if pt has skilled needs (IV atb greater than once a day will qualify). Barriers/Today we still Wait: ID plan/line placement/opat. Length of Stay (Days): 3 GMLOS: 8.4 SW consult[facility] transportation. SW reviewed chart. Pt is a LTC resident of [facility]. [place] is responsible for pt transportation for medical appointments. . Return Ref[facility] request. Await review and response regarding ability to accept. TCC notified. Care Management Progress Note Short Medical why still here: Pt adm for tx/evaluation of osteomyelitis. OR this am with surgery for debridement of sacral and ischial wounds. Receiving IV merrem and vanc with ID following- anticipate fci needs. Planned Discharge Disposition: Pt from [facility] fci. Attempted to confirm return with pt however [...] achieved with bovie electrocautery. Two pieces of [place] patch were placed in the wound bed. [...] x 4 cm = 28 cm2 [CPT 80716, 76699] Open biopsy of left ischium [CPT 13599] This note is electronically signed by: Kaela [...] EMS pt was sent here from the [place] for wound infections. Pt has two wound [...] Family History[3] SOCIAL HISTORY Social History[4] SCREENINGS [place] Coma Scale Best Eye Response: Spontaneous Best [...] Procedure Abnormality Status --------- ------ Culture, Aerobic Bacteri...[[id number]] Abnormal Preliminary result Anaerobic culture[[id number]] In process Please view results for these [...] IMPRESSION 1. Other acute osteomyelitis, other site ([facility]) DISPOSITION Admit 04/22/2025 01:32:25 AM PATIENT REFERRED [...] DECOMPRESSION performed by Opal Vigil MD at [facility] OR ORTHOPEDIC SURGERY Right removal of hardware [...] Resource Strain: Low Risk (04/24/2023) Received from [facility] Overall Financial Resource Strain (CARDIA) Difficulty of Paying Living Expenses: Not hard at all Food Insecurity: No Food Insecurity (02/17/2025) Received from [facility] Hunger Vital Sign Worried About Running Out of Food in the Last Year: Never true Ran Out of Food in the Last Year: Never true Transportation Needs: No Transportation Needs (02/17/2025) Received from [facility] PRAPARE - Transportation Lack of Transportation (Medical): No Lack of Transportation (Non-Medical): No Intimate Partner Violence: Not At Risk (05/18/2024) Humiliation, Afraid, Rape, and Kick questionnaire Fear of Current or Ex-Partner: No Emotionally Abused: No Physically Abused: No Sexually Abused: No Housing Stability: Unknown (02/17/2025) Received from [facility] Housing Stability Vital Sign Unable to Pay for Housing in the Last Year: No Homeless in the Last Year: No Brad Campos MD 04/22/25 0201 documented in this encounter [facility] 04-28-2025 Progress note Formatting of t his note might be different from the original. Confirmed pickup time of 5:30pm on 04/28/25 by transport [facility] at phone number [phone]. Location of facility drop off is [facility]. Facility notified via [employer], [facility] notified on secure chat. [facility] 04-28-2025 Hospital Discharge instructions Berhane Moreno [...] DECOMPRESSION performed by Opal Vigil MD at [facility] OR ORTHOPEDIC SURGERY Right removal of hardware [...] assistance Toileting Total assistance Feeding Minimal assistance Machine Adjuster Helper Minimal assistance Med Delivery yes Wound Care [...] Date: 04/22/25 [facility] to [facility] [place] [address], [place] [address] [address] Heel [employer] signature: ICIAN SECTION Name: Anmol Reynolds Prognosis: good Condition at Discharge: stable Rehab Potential (if transferring to Rehab): fair Recommended Labs or Other Treatments After Discharge: CBC, CMP panel weekly till IV antibiotic is completed Discontinue PICC line after IV antibiotic is completed The individual is being admitted to a nursing facility directly from an [facility] or a unit of a [facility] that is not operated by or licensed by [facility] under section 5119.14 or 5160-3-15.1 5 The individual requires the level of services provided by a nursing facility for the condition for which he or she was treated in the hospital and, Physician Certification: I certify the above information and transfer of Anmol Reynolds is necessary for the continuing treatment of the diagnosis listed and that he requires assisted facility for greater than 30 days. Update Admission H&P: No change in H&P PHYSICIAN SIGNATURE: documented in this encounter [facility] 04-28-2025 Progress note Formatting of t his note might be different from the original. Transport requested in Roundtrip in will call to [facility] per [facility]. [facility] 04-28-2025 Note Care Management Prog ress Note Short Medical why still here: continues to be treated for osteomyelitis. ID following- awaiting sensitivities for final IV plan. Currently receiving IV unasyn and vanc. PICC Line intact for antic 6wk course. Planned Discharge Disposition: plan for return to [facility]- will NOT need auth. PRODUCTION TECH to place pt in roundtrip under will call for transport assist. Barriers/Today we still Wait: need opat/final plan for discharge. Length of Stay (Days): 6 GMLOS: 8.4 [facility] 04-28-2025 Progress note Formatting of t his note might be different from the original. Care Management Progress Note Short Medical why still here: continues to be treated for osteomyelitis. ID following- awaiting sensitivities for final IV plan. Currently receiving IV unasyn and vanc. PICC Line intact for antic 6wk course. Planned Discharge Disposition: plan for return to [facility]- will NOT need auth. PRODUCTION TECH to place pt in roundtrip under will call for transport assist. Barriers/Today we still Wait: need opat/final plan for discharge. Length of Stay (Days): 6 GMLOS: 8.4 [facility] 04-28-2025 Note Hospitalist Progress Note 04/28/2025 10:05 AM [phone]: Please page me for patient care issues. [phone]: Please page [facility] night Hospitalist for any issues. Subjective: [...] diet Regular; 4 carb choices (60 gm/meal) @[id number]@ Medications: Continuous Meds[2] Scheduled Meds[3] LABS: CBC: [...] daily Wound care team following. PT recommended assisted facility Continue IV Venofer as ordered for [...] Mobile Relation (more content not included)... [facility] 04-28-2025 History of Present illness Narrative Hospitalist Progress Note 04/28/2025 10:05 AM [phone]: Please page me for patient care issues. [phone]: Please page [facility] night Hospitalist for any issues. Subjective: Admit Date: 04/21/2025 PCP: Tab Dupont Room#: N4-083/N4-984 A Interval History: Patient seen and examined [...] diet Regular; 4 carb choices (60 gm/meal) @[id number]@ Medications: Continuous Meds[2] Scheduled Meds[3] LABS: CBC: [...] daily Wound care team following. PT recommended assisted facility Continue IV Venofer as ordered for [...] made to ensure accuracy; however, inadvertent computerized solar energy advisor errors may be present. Berhane Moreno MD Division of Hospitalist Medicine [facility] PAGER: Epic chat [1] Past [...] creatinine, and vancomycin levels interfaced automatically to [employer] and data has been analyzed and interpreted. [...] Chat Hospitalist Progress Note 04/27/2025 9:04 AM [phone]: Please page me for patient care issues. [phone]: Please page [facility] night Hospitalist for any issues. Subjective: [...] diet Regular; 4 carb choices (60 gm/meal) @[id number]@ Medications: Continuous Meds[2] Scheduled Meds[3] LABS: CBC: [...] daily Wound care team following. PT recommended assisted facility Continue IV Venofer as ordered for [...] made to ensure accuracy; however, inadvertent computerized solar energy advisor errors may be present. Berhane Moreno MD Division of Hospitalist Medicine [facility] PAGER: Epic chat [1] Past [...] creatinine, and vancomycin levels interfaced automatically to [employer] and data has been analyzed and interpreted. [...] Chat Hospitalist Progress Note 04/26/2025 9:58 AM [phone]: Please page me for patient care issues. [phone]: Please page [facility] night Hospitalist for any [...] diet Regular; 4 carb choices (60 gm/meal) @[id number]@ Medications: Continuous Meds[2] Scheduled Meds[3] LABS: CBC: [...] daily Wound care team following. PT recommended assisted facility IV Venofer for iron deficiency anemia ordered x 2 dose Hold ferrous sulfate Discussed with residential property manager by epic kira--okay to restart anticoagulation today Continue rest of [...] made to ensure accuracy; however, inadvertent computerized solar energy advisor errors may be present. Berhane Moreno MD Division of Hospitalist Medicine [facility] PAGER: Epic chat [1] Past [...] creatinine, and vancomycin levels interfaced automatically to [employer] and data has been analyzed and interpreted. [...] Chat Hospitalist Progress Note 04/25/2025 5:34 PM [phone]: Please page me for patient care issues. [phone]: Please page [facility] night Hospitalist for any [...] diet Regular; 4 carb choices (60 gm/meal) @[id number]@ Medications: Continuous Meds[2] Scheduled Meds[3] LABS: CBC: [...] daily Wound care team following PT recommended assisted facility Check iron profile Patient can be [...] made to ensure accuracy; however, inadvertent computerized solar energy advisor errors may be present. Berhane Moreno MD Division of Hospitalist Medicine [facility] PAGER: Epic chat [1] Past Medical History: [...] Oral, Daily vancomycin, 1,500 mg, IntraVENous, q12h [facility] - Infectious Diseases Attending [...] 0056 CO2 26 04/25/2025 0056 BUN 14 04/25/202555 CREATININE 0.73 04/25/202555 CREATININE 0.57 (L) 10/25/2020 0457 GLUCOSE 213 (H) 04/25/2025 0056 CALCIUM 8.2 (L) 04/25/20256 PROT 7.6 04/21/2025 2257 BILITOT 0.5 04/21/2025 2257 ALKPHOS 116 04/21/2025 2257 AST 13 04/21/2025 2257 ALT 6 04/21/2025 2257 PROCAL 27.06 (H) 04/14/2024 2318 Lab Results Component Value Date/Time WBC 9.5 04/25/202555 HGB 10.4 (L) 04/25/202555 HGB 13.7 04/14/2024 1730 HCT 32.6 (L) 04/25/202555 PLT 421 04/25/202555 LYMPHOPCT 20.7 04/25/2025 005 LYMPHOPCT 32 04/20/2024 0359 MONOPCT 9.3 04/25/2025 005 MONOPCT 10 04/20/2024 0359 BASOPCT 0.4 04/25/2025 0056 BASOPCT 1 04/19/2024 0428 NEUTROABS 6.5 04/25/2025 005 Micro: 04/24 tissue cx: E raffinosus so far 04/21 Wound cx: MRSA, anaerobic GNR, not B fragilis Lines: PIV Radiography/Echo/Other: reviewed Antimicrobials, Start/End Dates: Vancomycin Cefepime to Meropenem Impression: 64 M admitted from [facility] with: Worsening decubitus ulcer , concerning for [...] creatinine, and vancomycin levels interfaced automatically to [employer] and data has been analyzed and interpreted. [...] Orders placed. DATE: 04/25/25 TIME: 9:15 AM Brdigette Virk PharmD PGY1 Manager Package Available via Secure Chat Images from the [...] Intake/Output Summary (Last 24 hours) at 04/25/2025 0756 Last data filed at 04/25/2025 0358 Gross [...] off, call with questions or concerns Maureen Garduno APRN - NETWORK AND THREAT SUPPORT SPECIALIST 04/25/25 7:58 AM [1] [Held by provider] [...] Clarke DO Radhames Division of Hospitalist Medicine [facility] [1] Past Medical History: Diagnosis Date Abnormal [...] (BLE Edema: Moderate pitting, indentation subsides rapidly) Metaphysics Teacher Strength: Not Performed Chief Complaint Patient presents with Wound Infection Per EMS pt was sent here from the [place] for wound infections. 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 Nurse states she ordered [...] (kg): 82.41 kg Total Energy Requirements (kcals/day): 7519-3703 (25-30 kcals/kg) Weight Used for Protein Requirements: [...] in paraplegia) % Weight Change (Calculated): 0 [place] Body Weight (lbs) (Calculated): 196 lbs [place] Body Weight (Kg) (Calculated): 89 kg % [place] Body Weight (Calculated): 99.5 % BMI (kg/m2) (Calculated): 24.4 Weight Adjustment For: Paraplegia % Weight Adjustment: 7.5 - Paraplegia Total Adjusted Percentage (Calculated): 7.5 Adjusted [place] Body Weight (lbs) (Calculated): 181.3 lbs Adjusted [place] Body Weight (kg) (Calculated): 82.41 kg Adjusted [...] Elly Whatleymamadou MS, RD, LD Contact: or [employer] (dial *[phone] from hospital phone) [1] Past Medical History: [...] DECOMPRESSION performed by Opal Vigil MD at [facility] OR ORTHOPEDIC SURGERY Right removal of hardware [...] creatinine, and vancomycin levels interfaced automatically to [employer] and data has been analyzed and interpreted. [...] JOE Diaz CNP Family Communication Number Called: [phone] Name of Designated Family Physical Therapist Technician: Ronald Reynolds Relationship: brother Phone Call Outcome: I spoke with the individual listed above. Family Physical Therapist Technician Updated on the Following: I updated Ronlad on Anmol's surgery. He will rely the message to Ronald's daughter Sumi (phone number provided not functional). Images from the original note were not included. Department of General Surgery Daily Progress Note ADMIT DATE: 04/21/2025 TODAY'S DATE: 04/24/2025 HPI: Anmol Reynolds is a 64 y.o. male with significant past medical history of paraplegia s/p surgical complication with Dr. Ashley at [facility], HLD, HTN, MDD, OA, a-fib on [...] MD Division of Trauma Department of Surgery [facility] [1] Patient Active Problem List Diagnosis Nicotine [...] Admit Date: 04/21/2025 PCP: Tab Dupont Room#: N4-732/N4-757 B BRIEF HOSPITAL COURSE: 64-year-old male presenting [...] ANIONGAP 10 7 LIVER PROFILE: Recent Labs 04/21/25 2257 AST [...] Clarke DO Radhames Division of Hospitalist Medicine [facility] [1] Past Medical History: Diagnosis Date [...] original note were not included. PHYSICAL THERAPY [facility] Initial Evaluation Name/MRN: Anmol Reynolds ([id number]) Evaluation Date: 04/23/2025 Date of : 1960 Admission Date: 04/21/2025 9:56 PM Age: 64 y.o. Room/Bed: N4-465/N4-465 B Discharge Recommendation: Snf Facility Equipment Needed: No Assessment IMPRESSION: PT [...] Anxiety 01/06/2017 Other acute osteomyelitis, other site ([facility]) 04/22/2025 Positive blood cultures 05/17/2024 Calculus of ureter 05/06/2024 Bladder calculus 05/05/2024 Pressure injury of coccygeal region, stage 3 ([facility]) 04/20/2024 Septic shock ([facility]) 04/14/2024 Lumbar stenosis with neurogenic claudication 10/24/2020 Spinal stenosis of lumbar region with neurogenic claudication 10/24/2020 Nicotine use disorder 10/15/2020 Unspecified osteoarthritis, unspecified site 10/15/2020 Pilonidal cyst without abscess 10/15/2020 Diabetes mellitus without complication ([facility]) 10/15/2020 Abnormal finding on EKG [...] x4 Social/Functional History Patient admitted from [facility] . Assistive Equipment: wheelchair - manual [...] of Care supervision is transferred to a [facility] Therapy Services Physical Therapist. Goals [...] DECOMPRESSION performed by Opal Vigil MD at [facility] OR ORTHOPEDIC SURGERY Right removal of hardware ankle US PLACE URETAL STENT PERC PRE-EXIST TRACT S&I (HISTORICAL) Bilateral 04/14/2024 Dr. Grimm/Bashir Pharmacy to Dose Vancomycin - Progress Note Lab Results Component Value Date CREATININE 0.54 (L) 04/23/2025 BUN 8 (L) 04/23/2025 WBC 9.4 04/23/2025 VANCORANDOM 12.3 (L) 04/16/2024 VANCOTROUGH 12.4 04/22/2025 Doses, serum creatinine, and vancomycin levels interfaced automatically to [employer] and data has been analyzed and interpreted. [...] Daughter Kerwin RicciDO Division of Hospitalist Medicine [facility] [1] Past Medical History: Diagnosis Date Abnormal [...] creatinine, and vancomycin levels interfaced automatically to [employer] and data has been analyzed and interpreted. [...] via Secure Chat documented in this encounter [facility] 04-28-2025 Note Pharmacy to Dose Van comycin - Progress Note Lab Results Component Value Date CREATININE 0.64 (L) 04/27/2025 BUN 21 04/27/2025 WBC 8.0 04/27/2025 VANCORANDOM 12.3 (L) 04/16/2024 VANCOTROUGH 12.0 04/24/2025 Doses, serum creatinine, and vancomycin levels interfaced automatically to [employer] and data has been analyzed and interpreted. [...] DATE: 04/28/25 TIME: 7:21 AM Lauryn Begum, Hans Clinical Pharmacist Available via Secure Chat [facility] 04-27-2025 Plan of care note Assuming coverage from Dr. Merchant s/p Mina ischial wound debridement with osteomyelitis. Additional organisms are being reported on OR cx. E raffinosus, Proteus, MRSA, Clostridium ramosum, enteric gosia, and skin gosia. Await Proteus sensitivities prior to completion of OPAT. Will provide final recommendations tomorrow. D/w TCC. Jo-Ann Ortiz MD [facility] 04-27-2025 Note Care Management Prog ress Note Short Medical why still here: pt being treated for osteomyelitis. Receiving IV unaysn and vanc with ID planning on extended IV course- awaiting opat/final plan. Planned Discharge Disposition: Plan for return to [facility]- does not need auth. Barriers/Today we still Wait: ID plan/opat. Length of Stay (Days): 5 GMLOS: 8.4 [facility] 04-27-2025 Progress note Formatting of t his note might be different from the original. Care Management Progress Note Short Medical why still here: pt being treated for osteomyelitis. Receiving IV unaysn and vanc with ID planning on extended IV course- awaiting opat/final plan. Planned Discharge Disposition: Plan for return to [facility]- does not need auth. Barriers/Today we still Wait: ID plan/opat. Length of Stay (Days): 5 GMLOS: 8.4 [facility] 04-27-2025 Nurse Note Patient dressings changed as per orders. Patient tolerated well. Left PICC dressing changed patient tolerated well [facility] 04-27-2025 Note Hospitalist Progress Note 04/27/2025 9:04 AM [phone]: Please page me for patient care issues. [phone]: Please page [facility] night Hospitalist for any [...] diet Regular; 4 carb choices (60 gm/meal) @[id number]@ Medications: Continuous Meds[2] Scheduled Meds[3] LABS: CBC: [...] daily Wound care team following. PT recommended assisted facility Continue IV Venofer as ordered for [...] Emergency Con (more content not included)... [facility] 04-27-2025 Note Pharmacy to Dose Van comycin - Progress Note Lab Results Component Value Date CREATININE 0.64 (L) 04/27/2025 BUN 21 04/27/2025 WBC 8.0 04/27/2025 VANCORANDOM 12.3 (L) 04/16/2024 VANCOTROUGH 12.0 04/24/2025 Doses, serum creatinine, and vancomycin levels interfaced automatically to [employer] and data has been analyzed and interpreted. [...] JudyD Clinical Pharmacist Available via Secure Chat [facility] 04-26-2025 Note Care Management Prog ress Note Short Medical why still here: Pt continues to be treated for osteomyelitis. Receiving IV merrem q8hr with plan for 6wk tx per ID-final plan not complete. Planned Discharge Disposition: plan for return to [facility]- will need auth d/t skilled need for IV atb tx. Facility updated and asked to submit for auth. ADELINE complete. Barriers/Today we still Wait: Plan from ID/line placement and auth. Length of Stay (Days): 4 GMLOS: 8.4 [facility] 04-26-2025 Progress note Formatting of t his note might be different from the original. Care Management Progress Note Short Medical why still here: Pt continues to be treated for osteomyelitis. Receiving IV merrem q8hr with plan for 6wk tx per ID-final plan not complete. Planned Discharge Disposition: plan for return to [facility]- will need auth d/t skilled need for IV atb tx. Facility updated and asked to submit for auth. ADELINE complete. Barriers/Today we still Wait: Plan from ID/line placement and auth. Length of Stay (Days): 4 GMLOS: 8.4 T [facility] 04-26-2025 Note Hospitalist Progress Note 04/26/2025 9:58 AM [phone]: Please page me for patient care issues. [phone]: Please page [facility] night Hospitalist for any issues. Subjective: [...] diet Regular; 4 carb choices (60 gm/meal) @[id number]@ Medications: Continuous Meds[2] Scheduled Meds[3] LABS: CBC: [...] daily Wound care team following. PT recommended assisted facility IV Venofer for iron deficiency anemia ordered x 2 dose Hold ferrous sulfate Discussed with residential property manager by clyde malone--okay to restart anticoagulation [...] : Accu-C (more content not included)... [facility] 04-26-2025 Note Pharmacy to Dose Van comycin - Progress Note Lab Results Component Value Date CREATININE 0.62 (L) 04/26/2025 BUN 19 04/26/2025 WBC 7.3 04/26/2025 VANCORANDOM 12.3 (L) 04/16/2024 VANCOTROUGH 12.0 04/24/2025 Doses, serum creatinine, and vancomycin levels interfaced automatically to [employer] and data has been analyzed and interpreted. [...] Clinical Pharmacist Available via Secure Chat [facility] 04-25-2025 Note Hospitalist Progress Note 04/25/2025 5:34 PM [phone]: Please page me for patient care issues. [phone]: Please page [facility] night Hospitalist for any issues. Subjective: [...] diet Regular; 4 carb choices (60 gm/meal) @[id number]@ Medications: Continuous Meds[2] Scheduled Meds[3] LABS: CBC: [...] daily Wound care team following PT recommended assisted facility Check iron profile Patient can be [...] Advance D (more content not included)... [facility] 04-25-2025 Note Care Management Prog ress Note Short Medical why still here: Pt continues to be treated for osteomyelitis. ID following- receiving IV merrem and vanc- anticipate fci tx. Planned Discharge Disposition: Pt from [facility]- met with pt this afternoon- introduced self and role. Verified return when stable. Will need auth if pt has skilled needs (IV atb greater than once a day will qualify). Barriers/Today we still Wait: ID plan/line placement/opat. Length of Stay (Days): 3 GMLOS: 8.4 [facility] 04-25-2025 Progress note Formatting of t his note might be different from the original. Care Management Progress Note Short Medical why still here: Pt continues to be treated for osteomyelitis. ID following- receiving IV merrem and vanc- anticipate fci tx. Planned Discharge Disposition: Pt from [facility]- met with pt this afternoon- introduced self and role. Verified return when stable. Will need auth if pt has skilled needs (IV atb greater than once a day will qualify). Barriers/Today we still Wait: ID plan/line placement/opat. Length of Stay (Days): 3 GMLOS: 8.4 [facility] 04-25-2025 Note [facility] - Infectious Diseases Attending [...] 4.3 04/25/202555 CL 101 04/25/20256 CO2 26 04/25/20256 BUN 14 04/25/202555 CREATININE 0.73 04/25/202555 CREATININE [...] (L) 04/25/202555 PLT 421 04/25/202555 LYMPHOPCT 20.7 04/25/2025 0056 LYMPHOPCT 32 04/20/2024 0359 MONOPCT 9.3 04/25/2025 005 MONOPCT 10 04/20/2024 0359 BASOPCT 0.4 04/25/2025 0056 BASOPCT 1 04/19/2024 0428 NEUTROABS 6.5 04/25/2025 0056 Micro: 04/24 tissue cx: E raffinosus so far 04/21 Wound cx: MRSA, anaerobic GNR, not B fragilis Lines: PIV Radiography/Echo/Other: reviewed Antimicrobials, Start/End Dates: Vancomycin Cefepime to Meropenem Impression: 64 M admitted from [facility] with: Worsening decubitus ulcer , concerning [...] wound healing. Will follow. Case d/wCM. [facility] 04-25-2025 Note Pharmacy to Dose Van comycin - Progress Note Lab Results Component Value Date CREATININE 0.73 04/25/2025 BUN 14 04/25/2025 WBC 9.5 04/25/2025 VANCORANDOM 12.3 (L) 04/16/2024 VANCOTROUGH 12.0 04/24/2025 Doses, serum creatinine, and vancomycin levels interfaced automatically to [employer] and data has been analyzed and interpreted. [...] TIME: 9:15 AM Bridgette Virk, PharmD PGY1 Manager Package Available via Secure [employer] [facility] 04-25-2025 Note Department of [facility] l Surgery Daily Progress Note ADMIT DATE: 04/21/2025 TODAY'S DATE: 04/25/2025 HPI: Anmol Reynolds is a 64 y.o. male with significant past medical history of paraplegia s/p surgical complication with Dr. Ashley at [facility], HLD, HTN, MDD, OA, a-fib on [...] call with questions or concerns Maureen Garduno, POWDER PRESS OPERATOR - NETWORK AND THREAT SUPPORT SPECIALIST 04/25/25 7:58 AM [1] [Held by provider] [...] glycol (PEG) 3350, sodium chloride 0.9% [facility] 04-24-2025 Note Hospitalist Progress Note 04/24/2025 Subjective: [...] increase ac (more content not included)... [facility] 04-24-2025 Note Patient declined smo rl cessation counseling. Accepting of handout with contact information for future reference. [facility] 04-24-2025 Progress note Formatting of t his note might be different from the original. SW consult-[facility] transportation. SW reviewed chart. Pt is a LTC resident of [facility]. [place] is responsible for pt transportation for medical appointments. . [facility] 04-24-2025 Note Return Referral plac ed to [facility] per TCC request. Await review and response regarding ability to accept. TCC notified. [facility] 04-24-2025 Progress note Formatting of t his note might be different from the original. Return Referral placed to [facility] per TCC request. Await review and response regarding ability to accept. TCC notified. [facility] 04-24-2025 Note Care Management Prog ress Note Short Medical why still here: Pt adm for tx/evaluation of osteomyelitis. OR this am with surgery for debridement of sacral and ischial wounds. Receiving IV merrem and vanc with ID following- anticipate watermelon harvesting supervisor needs. Planned Discharge Disposition: Pt from [facility]. Attempted to confirm return with pt however pt sleeping this am- unable to arouse for conversation. Barriers/Today we still Wait: IV atb/ID plan. Length of Stay (Days): 2 GMLOS: 4 [facility] 04-24-2025 Progress note Formatting of t his note might be different from the original. Care Management Progress Note Short Medical why still here: Pt adm for tx/evaluation of osteomyelitis. OR this am with surgery for debridement of sacral and ischial wounds. Receiving IV merrem and vanc with ID following- anticipate watermelon harvesting supervisor needs. Planned Discharge Disposition: Pt from [facility]. Attempted to confirm return with pt however pt sleeping this am- unable to arouse for conversation. Barriers/Today we still Wait: IV atb/ID plan. Length of Stay (Days): 2 GMLOS: 4 [facility] 04-24-2025 Note Pharmacy to Dose Van comycin - Progress Note Lab Results Component Value Date CREATININE 0.59 (L) 04/24/2025 BUN 7 (L) 04/24/2025 WBC 9.3 04/24/2025 VANCORANDOM 12.3 (L) 04/16/2024 VANCOTROUGH 12.0 04/24/2025 Doses, serum creatinine, and vancomycin levels interfaced automatically to [employer] and data has been analyzed and interpreted. [...] Clinical Pharmacist Available via Secure Chat [facility] 04-24-2025 Note Patient: Anmol Franco Giv en Procedure Summary Date: 04/24/25 Room / Location: [address] Operating Room Anesthesia Start: 729 Anesthesia [...] all PACU criteria has been met. [facility] 04-24-2025 Note Patient: Anmol Franco Giv en Procedure Summary Date: 04/24/25 Room / Location: [address] Operating Room Anesthesia Start: 729 Anesthesia [...] for questions and acknowledgement of understanding. [facility] 04-24-2025 Nurse Note Patient states nobody here to update [facility] 04-24-2025 Note Family Communication Number Called: [phone] Name of Designated Family Physical Therapist Technician: Ronald Given Relationship: brother Phone Call Outcome: I spoke with the individual listed above. Family Physical Therapist Technician Updated on the Following: I updated Ronald on Anmol's surgery. He will rely the message to Ronald's daughter Sumi (phone number provided not functional). [facility] 04-24-2025 Note Airway Date/Time: 04/24/2025 7:37 AM Reason: scheduled Airway not difficult General Information and Staff Patient location during procedure: Procedural Resident/PARTY SUPPLY SPECIALIST: Quinten Salgado APRN - PARTY SUPPLY SPECIALIST Performed: PARTY SUPPLY SPECIALIST Patient Condition Indications for airway management: [...] Number of attempts at approach: 1 [facility] 04-24-2025 Note Patient: Anmol Santiago en Procedure Information Date/Time: 04/24/25 0730 Procedure: Sacral wound DEBRIDEMENT SKIN SUBCUTANEOUS TISSUE MUSCLE (Bilateral) Location: [address] Operating Room Surgeons: Kaela Durand MD [...] date: Other reduced mobility No date: Paraplegia ([facility]) No date: Sciatica No date: Spinal stenosis of lumbar region with neurogenic claudication No date: Type 2 diabetes mellitus without complication ([facility]) ([facility]) No date: Urinary calculus, unspecified [...] DECOMPRESSION performed by Opal Vigil MD at [facility] [place] No date: ORTHOPEDIC SURGERY; Right Comment: [...] [1] No family history on file. [facility] 04-24-2025 Procedure note OPERATIVE REPORT Date of [...] achieved with bovie electrocautery. Two pieces of [place] patch were placed in the wound bed. [...] x 4 cm = 28 cm2 [CPT 69786, 82559] Open biopsy of left ischium [CPT 21616] This note is electronically signed by: Kaela Durand MD 1:56 PM, 04/25/2025. [facility] 04-24-2025 Plan of care note Problem: [...] monitored and maintained or improved Outcome: Progressing [facility] 04-23-2025 Note Hospitalist Progress Note 04/23/2025 [...] Intake/Output Summary (Last 24 hours) at 04/23/2025 5568 Last data filed at 04/23/2025 1650 Gross [...] increase act (more content not included)... [facility] 04-23-2025 Plan of care note Problem: Pain - Adult Goal: Verbalizes/displays adequate comfort level or baseline comfort level Outcome: Progressing Problem: Safety - Adult Goal: Free from fall injury Outcome: Progressing Problem: Chronic Conditions and Co-morbidities Goal: Patient's chronic conditions and co-morbidity symptoms are monitored and maintained or improved Outcome: Progressing [facility] 04-23-2025 Note PHYSICAL THERAPY [facility] Initial Evaluation Name/MRN: Anmol Reynolds ([id number]) Evaluation Date: 04/23/2025 Date of : 1960 Admission Date: 04/21/2025 9:56 PM Age: 64 y.o. Room/Bed: N4-465/N4-465 B Discharge Recommendation: Snf Facility Equipment Needed: No Assessment IMPRESSION: PT [...] Anxiety 01/06/2017 Other acute osteomyelitis, other site ([facility]) 04/22/2025 Positive blood cultures 05/17/2024 Calculus of ureter 05/06/2024 Bladder calculus 05/05/2024 Pressure injury of coccygeal region, stage 3 ([facility]) 04/20/2024 Septic shock ([facility]) 04/14/2024 Lumbar stenosis with neurogenic claudication 10/24/2020 Spinal stenosis of lumbar region with neurogenic claudication 10/24/2020 Nicotine use disorder 10/15/2020 Unspecified osteoarthritis, unspecified site 10/15/2020 Pilonidal cyst without abscess 10/15/2020 Diabetes mellitus without complication ([facility]) 10/15/2020 Abnormal finding on EKG [...] x4 Social/Functional History Patient admitted from [facility] . Assistive Equipment: wheelchair - manual [...] Co-Treatment Co-Evaluation Time In 811 Time Out 0822 Minutes 10 Abigail Collins PT Patient's Physical Therapy Plan of Care supervision is transferred to a [facility] Therapy Services Physical Therapist. Goals and/or treatment plan was established in collaboration with patient/family/other representatives. [1] Past Medical History: Diagnosis Date Abnormal posture Abscess, perineum Anemia BPH (benign prostatic hyperplasia) Chronic back pain Hem (more content not included)... [facility] 04-23-2025 Note Pharmacy to Dose Van comycin - Progress Note Lab Results Component Value Date CREATININE 0.54 (L) 04/23/2025 BUN 8 (L) 04/23/2025 WBC 9.4 04/23/2025 VANCORANDOM 12.3 (L) 04/16/2024 VANCOTROUGH 12.4 04/22/2025 Doses, serum creatinine, and vancomycin levels interfaced automatically to [employer] and data has been analyzed and interpreted. [...] 04/23/25 TIME: 8:13 AM Radha Deal [facility] Clinical Pharmacist Available via Secure Chat [facility] 04-23-2025 Plan of care note Problem: Pain [...] monitored and maintained or improved Outcome: Progressing [facility] 04-22-2025 Consult note Associated Order (s): IP CONSULT TO INFECTIOUS DISEASES Images from the original note were not included. [facility] - Infectious Diseases Attending Consult Note Reason for Consult: 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 History of Present Illness: 64 M with h/o MRSA lumbar epidural abscess from 2021, s/p decompression and fusion, but left paraplegic with neurogenic bladder. Recent hospitlaizaitons for PNA as well as ESBL Proteus UTI/ sepsis recently at [facility]. He had a sacral decubitus ulcer for years, was already improving but worsened since most recent prolonged hospitalization once more in February 2025. Buttock ulcer developed that time as well. Patient stabilized, completed IV antibiotics, and was doing well except at [facility] increased concern for worsening wound infection, [...] Resource Strain: Low Risk (04/24/2023) Received from [facility] Overall Financial Resource Strain (CARDIA) [...] to Meropenem Impression: 64 M admitted from [facility] with: Worsening decubitus ulcer , concerning [...] DECOMPRESSION performed by Opal Vigil MD at [facility] OR ORTHOPEDIC SURGERY Right removal of hardware [...] chlorhexidine (Hibiclens) 4 % solution Topical Daily Ross G Babb, GYROSCOPE TECHNICIAN cyclobenzaprine (Flexeril) tablet 10 mg 10 mg Oral TID PRN Alberto Boogie, GYROSCOPE TECHNICIAN 10 mg at 04/22/25 0624 dextrose 5 % infusion 100 mL/hr IntraVENous PRN Alberto Miltons, GYROSCOPE TECHNICIAN dextrose 50 % solution 12.5 g 12.5 g IntraVENous PRN Alberto Boogie, GYROSCOPE TECHNICIAN DULoxetine (Cymbalta) DR capsule 30 mg 30 mg Oral Daily Alberto Boogie, GYROSCOPE TECHNICIAN 30 mg at 04/22/25 0923 ferrous sulfate tablet 325 mg 325 mg Oral Daily with breakfast Alberto Boogie, GYROSCOPE TECHNICIAN 325 mg at 04/22/25 0921 glucagon (human recombinant) injection 1 mg 1 mg IntraMUSCular PRN Alberto Boogie, GYROSCOPE TECHNICIAN glucose oral gel 15 g 15 g Oral PRN Alberto Boogie, GYROSCOPE TECHNICIAN insulin glargine (Lantus) injection 45 Units 45 Units SubCUTAneous q AM Alberto Boogie, GYROSCOPE TECHNICIAN 45 Units at 04/22/25920 Insulin Lispro (Humalog) injection 0-18 Units 0-18 Units SubCUTAneous TID WC Alberto Boogie GYROSCOPE TECHNICIAN 9 Units at 04/22/25 0921 And Insulin Lispro (Humalog) injection 0-18 Units 0-18 Units SubCUTAneous Nightly Alberto Boogie GYROSCOPE TECHNICIAN [START ON 04/24/2025] lactated Ringer's infusion 100 mL/hr IntraVENous Continuous Cari Ling MD linaGLIPtin (Tradjenta) tablet 5 mg 5 mg Oral Daily Alberto Boogie, GYROSCOPE TECHNICIAN 5 mg at 04/22/25 0946 meropenem (Merrem) 2,000 mg in sodium chloride 0.9 % 100 mL IVPB 2,000 mg IntraVENous q8h Kerwin Ricci DO midodrine (Proamatine) tablet 10 mg 10 mg Oral TID Alberto Boogie, GYROSCOPE TECHNICIAN 10 mg at 04/22/25 0921 mirtazapine (Remeron) tablet 7.5 mg 7.5 mg Oral Nightly Alberto Boogie, GYROSCOPE TECHNICIAN naloxone (Narcan) nasal spray 4 mg 4 mg Nasal PRN Alberto Boogie, GYROSCOPE TECHNICIAN ondansetron ODT (Zofran-ODT) disintegrating tablet 4 mg 4 mg Oral q8h PRN Alberto Boogie, GYROSCOPE TECHNICIAN Or ondansetron (Zofran) injection 4 mg 4 mg IntraVENous q6h PRN Alberto Sanchez Babb, GYROSCOPE TECHNICIAN oxyCODONE (Roxicodone) immediate release tablet 15 mg 15 mg Oral 4x daily Alberto Miltons, GYROSCOPE TECHNICIAN 15 mg at 04/22/25 0921 polyethylene glycol (PEG) 3350 (Miralax) packet 17 g 17 g Oral BID Alberto Miltons, GYROSCOPE TECHNICIAN 17 g at 04/22/25 0921 polyethylene glycol (PEG) 3350 (Miralax) packet 17 g 17 g Oral Daily PRN Alberto Miltons, GYROSCOPE TECHNICIAN pregabalin (Lyrica) capsule 200 mg 200 mg Oral TID Alberto Miltons, GYROSCOPE TECHNICIAN 200 mg at 04/22/25 0920 senna-docusate sodium (Senokot-S) 8.6-50 MG tablet 2 tablet 2 tablet Oral BID Alberto Miltons, GYROSCOPE TECHNICIAN 2 tablet at 04/22/25 0921 sodium chloride 0.9% (NS) flush 10 mL 10 mL IntraCATHeter q12h Alberto Miltons, GYROSCOPE TECHNICIAN 10 mL at 04/22/25 0634 sodium chloride 0.9% (NS) flush 10 mL 10 mL IntraCATHeter PRN Alberto Miltons, GYROSCOPE TECHNICIAN tamsulosin (Flomax) 24 hr capsule 0.4 mg 0.4 mg Oral Daily Alberto Boogie, GYROSCOPE TECHNICIAN 0.4 mg at 04/22/25 0922 vancomycin IVPB 1500 mg in 250 mL NS (premix) 1,500 mg IntraVENous q12h Alberto Miltons, GYROSCOPE TECHNICIAN [4] No Known Allergies [5] No family history on file. [facility] 04-22-2025 Consult note Associated Order (s): IP CONSULT TO INFECTIOUS DISEASES Images from the original note were not included. [facility] - Infectious Diseases Attending Consult Note Reason for Consult: 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 History of Present Illness: 64 M with h/o MRSA lumbar epidural abscess from 2021, s/p decompression and fusion, but left paraplegic with neurogenic bladder. Recent hospitlaizaitons for PNA as well as ESBL Proteus UTI/ sepsis recently at [facility]. He had a sacral decubitus ulcer for years, was already improving but worsened since most recent prolonged hospitalization once more in February 2025. Buttock ulcer developed that time as well. Patient stabilized, completed IV antibiotics, and was doing well except at [facility] increased concern for worsening wound infection, [...] Resource Strain: Low Risk (04/24/2023) Received from [facility] Overall Financial Resource Strain (CARDIA) [...] to Meropenem Impression: 64 M admitted from [facility] with: Worsening decubitus ulcer , concerning [...] DECOMPRESSION performed by Opal Vigil MD at [facility] OR ORTHOPEDIC SURGERY Right removal of hardware [...] 10 mg Oral TID PRN Alberto Boogie GYROSCOPE TECHNICIAN 10 mg at 04/22/25 0624 dextrose 5 % infusion 100 mL/hr IntraVENous PRN Alberto Boogie NP dextrose 50 % solution 12.5 g 12.5 g IntraVENous PRN Alberto Boogie, TREVOR DULoxetine (Cymbalta) DR capsule 30 mg 30 mg Oral Daily Alberto Boogie GYROSCOPE TECHNICIAN 30 mg at 04/22/25922 ferrous sulfate tablet 325 mg 325 mg Oral Daily with breakfast Alberto Boogie GYROSCOPE TECHNICIAN 325 mg at 04/22/25920 glucagon (human recombinant) injection 1 mg 1 mg IntraMUSCular PRN Alberto Boogie NP glucose oral gel 15 g 15 g Oral PRN Alberto Boogie, TREVOR insulin glargine (Lantus) injection 45 Units 45 Units SubCUTAneous q AM Alberto Boogie GYROSCOPE TECHNICIAN 45 Units at 04/22/25920 Insulin Lispro (Humalog) injection 0-18 Units 0-18 Units SubCUTAneous TID WC Alberto Boogie NP 9 Units at 04/22/25920 And Insulin Lispro (Humalog) injection 0-18 Units 0-18 Units SubCUTAneous Nightly Alberto Boogie NP [START ON 04/24/2025] lactated Ringer's infusion 100 mL/hr IntraVENous Continuous Cari Ling MD linaGLIPtin (Tradjenta) tablet 5 mg 5 mg Oral Daily Alberto Boogie GYROSCOPE TECHNICIAN 5 mg at 04/22/25945 meropenem (Merrem) 2,000 mg in sodium chloride 0.9 % 100 mL IVPB 2,000 mg IntraVENous q8h Kerwin Ricci DO midodrine (Proamatine) tablet 10 mg 10 mg Oral TID Alberto Boogie GYROSCOPE TECHNICIAN 10 mg at 04/22/25920 mirtazapine (Remeron) tablet 7.5 mg 7.5 mg Oral Nightly Alberto Boogie, TREVOR naloxone (Narcan) nasal spray 4 mg 4 mg Nasal PRN Alberto Boogie NP ondansetron ODT (Zofran-ODT) disintegrating tablet 4 mg 4 mg Oral q8h PRN Alberto Boogie NP Or ondansetron (Zofran) injection 4 mg 4 mg IntraVENous q6h PRN Alberto Boogie, TREVOR oxyCODONE (Roxicodone) immediate release tablet 15 mg 15 mg Oral 4x daily Alberto Boogie GYROSCOPE TECHNICIAN 15 mg at 04/22/25920 polyethylene glycol (PEG) 3350 (Miralax) packet 17 g 17 g Oral BID Alberto G Babb, GYROSCOPE TECHNICIAN 17 g at 04/22/25 0921 polyethylene glycol (PEG) 3350 (Miralax) packet 17 g 17 g Oral Daily PRN Alberto G Babb, GYROSCOPE TECHNICIAN pregabalin (Lyrica) capsule 200 mg 200 mg Oral TID Alberto G Babb, GYROSCOPE TECHNICIAN 200 mg at 04/22/25 0920 senna-docusate sodium (Senokot-S) 8.6-50 MG tablet 2 tablet 2 tablet Oral BID Ross G Keagan, GYROSCOPE TECHNICIAN 2 tablet at 04/22/25 0921 sodium chloride 0.9% (NS) flush 10 mL 10 mL IntraCATHeter q12h Ross G Babb, GYROSCOPE TECHNICIAN 10 mL at 04/22/25 0634 sodium chloride 0.9% (NS) flush 10 mL 10 mL IntraCATHeter PRN Ross G Babb, GYROSCOPE TECHNICIAN tamsulosin (Flomax) 24 hr capsule 0.4 mg 0.4 mg Oral Daily Alberto G Babb, GYROSCOPE TECHNICIAN 0.4 mg at 04/22/25 0922 vancomycin IVPB 1500 mg in 250 mL NS (premix) 1,500 mg IntraVENous q12h Ross G Babb, GYROSCOPE TECHNICIAN [4] No Known Allergies [5] No family history on file. Associated Order(s): IP CONSULT TO GENERAL SURGERY Images from the original note were not included. Department of General Surgery Surgical Service - [facility] Resident Consult Note 04/22/2025 CHIEF COMPLAINT: Chief Complaint Patient presents with Wound Infection Per EMS pt was sent here from the [place] for wound infections. Pt has two wound [...] Narrative: Patient Name: ANMOL REYNOLDS : 1960 [facility]#: [id number] Exam Date/Time: 04/22/2025 00:01 Procedure: CT PELVIS [...] This note may have been dictated using [employer] Medical Practice Edition 2.6 and/or [employer] Voice Recognition Feature. The document was proofread; however, unrecognized voice recognition solar energy advisor errors may be present. [1] Past Medical [...] DECOMPRESSION performed by Opal Vigil MD at [facility] OR ORTHOPEDIC SURGERY Right removal of hardware ankle US PLACE URETAL STENT PERC PRE-EXIST TRACT S&I (HISTORICAL) Bilateral 04/14/2024 Dr. Grimm/Bashir [3] Current Facility-Administered Medications Medication Dose Route Frequency Provider Last Rate Last Admin acetaminophen (Tylenol) tablet 650 mg 650 mg Oral q6h PRN Alberto Sanchez Keagan, TREVOR Or acetaminophen (Tylenol) suppository 650 mg 650 mg Rectal q6h PRN Alberto Sanchez Keagan, GYROSCOPE TECHNICIAN [Held by provider] apixaban (Eliquis) tablet 5 mg 5 mg Oral BID Alberto Sanchez Keagan, GYROSCOPE TECHNICIAN bisacodyl (Dulcolax) EC tablet 5 mg 5 mg Oral Daily PRN Alberto Miltons, GYROSCOPE TECHNICIAN bisacodyl (Dulcolax) suppository 10 mg 10 mg Rectal Daily PRN Alberto Sanchez Keagan, GYROSCOPE TECHNICIAN calcium carbonate (Tums) chewable tablet 1,000 mg 1,000 mg Oral q8h PRN Alberto Sanchez Babb, GYROSCOPE TECHNICIAN cefepime (Maxipime) 2,000 mg in sodium chloride 0.9 % 50 mL IVPB Mini-Bag Plus 2,000 mg IntraVENous q8h Alberto Sanchez Keagan, TREVOR cyclobenzaprine (Flexeril) tablet 10 mg 10 mg Oral TID PRN Alberto Miltons, GYROSCOPE TECHNICIAN dextrose 5 % infusion 100 mL/hr IntraVENous PRN Alberto Miltons, GYROSCOPE TECHNICIAN dextrose 50 % solution 12.5 g 12.5 g IntraVENous PRN Alberto Sanchez Keagan, GYROSCOPE TECHNICIAN DULoxetine (Cymbalta) DR capsule 30 mg 30 mg Oral Daily Alberto Powellvins, TREVOR ferrous sulfate tablet 325 mg 325 mg Oral Daily with breakfast Alberto Sanchez Keagan, GYROSCOPE TECHNICIAN glucagon (human recombinant) injection 1 mg 1 mg IntraMUSCular PRN Alberto Sanchez Keagan, GYROSCOPE TECHNICIAN glucose oral gel 15 g 15 g Oral PRN Alberto Sanchez Keagan, GYROSCOPE TECHNICIAN insulin glargine (Lantus) injection 45 Units 45 Units SubCUTAneous q AM Alberto BoogieTREVOR Insulin Lispro (Humalog) injection 0-18 Units 0-18 Units SubCUTAneous TID WC Alberto BoogieTREVOR And Insulin Lispro (Humalog) injection 0-18 Units 0-18 Units SubCUTAneous Nightly Alberto Boogie TREVOR linaGLIPtin (Tradjenta) tablet 5 mg 5 mg Oral Daily Alberto Boogie TREVOR midodrine (Proamatine) tablet 10 mg 10 mg Oral TID Alberto Boogie TREVOR mirtazapine (Remeron) tablet 7.5 mg 7.5 mg Oral Nightly Alberto BoogieTREVOR naloxone (Narcan) nasal spray 4 mg 4 mg Nasal PRN Alberto Boogie GYROSCOPE TECHNICIAN ondansetron ODT (Zofran-ODT) disintegrating tablet 4 mg 4 mg Oral q8h PRN Alberto BoogieTREVOR Or ondansetron (Zofran) injection 4 mg 4 mg IntraVENous q6h PRN Alberto BoogieTREVOR oxyCODONE (Roxicodone) immediate release tablet 15 mg 15 mg Oral 4x daily Alberto Boogie TREVOR polyethylene glycol (PEG) 3350 (Miralax) packet 17 g 17 g Oral BID Alberto Boogie TREVOR polyethylene glycol (PEG) 3350 (Miralax) packet 17 g 17 g Oral Daily PRN Alberto Boogie TREVOR pregabalin (Lyrica) capsule 200 mg 200 mg Oral TID Alberto Boogie TREVOR senna-docusate sodium (Senokot-S) 8.6-50 MG tablet 2 tablet 2 tablet Oral BID Alberto Boogie TREVOR tamsulosin (Flomax) 24 hr capsule 0.4 mg 0.4 mg Oral Daily Alberto BoogieTREVOR vancomycin IVPB 1500 mg in 250 mL NS (premix) 1,500 mg IntraVENous q12h Alberto Sanchez BabbTREVOR [4] Social History Socioeconomic History Marital status: [...] Resource Strain: Low Risk (04/24/2023) Received from [facility] Overall Financial Resource Strain (CARDIA) [...] appropriate exam and evaluation Meliton Carrero MD, [facility] Trauma, Surgical Critical Care & Acute Care Surgery Division of Trauma Department of Surgery [facility] [1] Patient Active Problem List Diagnosis Nicotine [...] creatinine, and vancomycin levels interfaced automatically to [employer] and data has been analyzed and interpreted. [...] via Secure Chat documented in this encounter [facility] 04-22-2025 Note Hospitalist Progress Note 04/22/2025 [...] monitoring: parenteral (more content not included)... [facility] 04-22-2025 Plan of care note Problem: Pain [...] monitored and maintained or improved Outcome: Progressing [facility] 04-22-2025 Note Pharmacy to Dose Van comycin - Progress Note Lab Results Component Value Date CREATININE 0.65 (L) 04/21/2025 BUN 10 04/21/2025 WBC 12.5 (H) 04/21/2025 VANCORANDOM 12.3 (L) 04/16/2024 VANCOTROUGH 12.4 04/22/2025 Doses, serum creatinine, and vancomycin levels interfaced automatically to [employer] and data has been analyzed and interpreted. [...] PharmD Clinical Pharmacist Available via Secure Chat [facility] [employer] [facility] 04-22-2025 Plan of care note Problem: Pain [...] monitored and maintained or improved Outcome: Progressing [facility] 04-22-2025 Consult note Associated Order (s): IP CONSULT TO GENERAL SURGERY Images from the original note were not included. Department of General Surgery Surgical Service - [facility] Resident Consult Note 04/22/2025 CHIEF COMPLAINT: Chief Complaint Patient presents with Wound Infection Per EMS pt was sent here from the [place] for wound infections. Pt has two wound [...] s/p surgical complication with Dr. Ashley at [facility], HLD, HTN, MDD, OA, a-fib on [...] Narrative: [facility] Name: [facility] 1960 [id number] Exam Date/Time: 04/22/2025 00:01 Procedure: CT PELVIS [...] This note may have been dictated using [employer] Medical Practice Edition 2.6 and/or [employer] Voice Recognition Feature. The document was proofread; however, unrecognized voice recognition solar energy advisor errors may be present. [1] Past Medical [...] DECOMPRESSION performed by Opal Vigil MD at [facility] OR ORTHOPEDIC SURGERY Right removal of hardware [...] mg 30 mg Oral Daily Alberto G Babb, GYROSCOPE TECHNICIAN ferrous sulfate tablet 325 mg 325 mg Oral Daily with breakfast Alberto Miltons, GYROSCOPE TECHNICIAN glucagon (human recombinant) injection 1 mg 1 mg IntraMUSCular PRN Alberto Miltons, GYROSCOPE TECHNICIAN glucose oral gel 15 g 15 g Oral PRN Alberto G Keagan, GYROSCOPE TECHNICIAN insulin glargine (Lantus) injection 45 Units 45 Units SubCUTAneous q AM Alberto G Babb, GYROSCOPE TECHNICIAN Insulin Lispro (Humalog) injection 0-18 Units 0-18 Units SubCUTAneous TID WC Alberto G Keagan, GYROSCOPE TECHNICIAN And Insulin Lispro (Humalog) injection 0-18 Units 0-18 Units SubCUTAneous Nightly Alberto G Keagan, GYROSCOPE TECHNICIAN linaGLIPtin (Tradjenta) tablet 5 mg 5 mg Oral Daily Alberto G Babb, GYROSCOPE TECHNICIAN midodrine (Proamatine) tablet 10 mg 10 mg Oral TID Alberto G Keagan, GYROSCOPE TECHNICIAN mirtazapine (Remeron) tablet 7.5 mg 7.5 mg Oral Nightly Alberto Sanchez Babb, GYROSCOPE TECHNICIAN naloxone (Narcan) nasal spray 4 mg 4 mg Nasal PRN Alberto Miltons, GYROSCOPE TECHNICIAN ondansetron ODT (Zofran-ODT) disintegrating tablet 4 mg 4 mg Oral q8h PRN Alberto Miltons, GYROSCOPE TECHNICIAN Or ondansetron (Zofran) injection 4 mg 4 mg IntraVENous q6h PRN Alberto G Babb, GYROSCOPE TECHNICIAN oxyCODONE (Roxicodone) immediate release tablet 15 mg 15 mg Oral 4x daily Alberto Miltons, GYROSCOPE TECHNICIAN polyethylene glycol (PEG) 3350 (Miralax) packet 17 g 17 g Oral BID Alberto Sanchez Babb, GYROSCOPE TECHNICIAN polyethylene glycol (PEG) 3350 (Miralax) packet 17 g 17 g Oral Daily PRN Alberto Sanchez Babb, GYROSCOPE TECHNICIAN pregabalin (Lyrica) capsule 200 mg 200 mg Oral TID Alberto Miltons, GYROSCOPE TECHNICIAN senna-docusate sodium (Senokot-S) 8.6-50 MG tablet 2 tablet 2 tablet Oral BID Alberto G Keagan, GYROSCOPE TECHNICIAN tamsulosin (Flomax) 24 hr capsule 0.4 mg 0.4 mg Oral Daily Alberto G Keagan, GYROSCOPE TECHNICIAN vancomycin IVPB 1500 mg in 250 mL NS (premix) 1,500 mg IntraVENous q12h Alberto Miltons, GYROSCOPE TECHNICIAN [4] Social History Socioeconomic History Marital status: [...] Resource Strain: Low Risk (04/24/2023) Received from [facility] Overall Financial Resource Strain (CARDIA) [...] []Other Discussed/ With: [x]Patient/Family [x]RN []Consultants [x]Primary []/[facility] []Other I spent total time of 60 [...] Surgery Division of Trauma Department of Surgery [facility] [1] Patient Active Problem List Diagnosis Nicotine [...] blood cultures Other acute osteomyelitis, other site ([facility]) [facility] 04-22-2025 Consult note Formatting of th [...] creatinine, and vancomycin levels interfaced automatically to [employer] and data has been analyzed and interpreted. [...] RPh Clinical Pharmacist Available via Secure Chat [facility] [employer] 04-22-2025 History and physical note Attending History and Physical Admit Date: 04/21/2025 PCP: Tab Dupont CHIEF COMPLAINT: Wound infection Reason for Admission: Osteomyelitis History Obtained From: patient HISTORY OF PRESENT ILLNESS: Anmol is a 64 y.o. male with past medical history below who presents with chief complaint listed above. Patient sent to [facility] ER [facility] staff to leave the patient's wounds on his sacrum were worsening and becoming infected. Patient is a paraplegic for the last 4 years after surgical complication with Dr. Ashley at [facility]. ER workup was significant for sodium of [...] Resource Strain: Low Risk (04/24/2023) Received from [facility] Overall Financial Resource Strain (CARDIA) Difficulty of Paying Living Expenses: Not hard at all Food Insecurity: No Food Insecurity (02/17/2025) Received from [facility] Hunger Vital Sign Worried About Running Out of Food in the Last Year: Never true Ran Out of Food in the Last Year: Never true Transportation Needs: No Transportation Needs (02/17/2025) Received from [facility] PRAPARE - Transportation Lack of Transportation (Medical): No Lack of Transportation (Non-Medical): No Physical Activity: Not on file Stress: Not on file Social Connections: Not on file Intimate Partner Violence: Not At Risk (05/18/2024) Humiliation, Afraid, Rape, and Kick questionnaire Fear of Current or Ex-Partner: No Emotionally Abused: No Physically Abused: No Sexually Abused: No Housing Stability: Unknown (02/17/2025) Received from [facility] Housing Stability Vital Sign Unable [...] - DO NOT do CPR, intubation] [_] [DNR-BACKUP ENGINEER - Comfort care only] [_] DNR form [...] DECOMPRESSION performed by Opal Vigil MD at [facility] OR ORTHOPEDIC SURGERY Right removal of hardware [...] treatment as noted above. [facility]eno [facility] Work Phone: 04-22-2025 Note Attestation signed by [...] chief complaint listed above. Patient sent to [facility] ER [facility] staff to leave the patient's wounds on his sacrum were worsening and becoming infected. Patient is a paraplegic for the last 4 years after surgical complication with Dr. Ashley at [facility]. ER workup was significant for sodium of [...] Resource Strain: Low Risk (04/24/2023) Received from [facility] Overall Financial Resource Strain (CARDIA) Difficulty of Paying Living Expenses: Not hard at all Food Insecurity: No Food Insecurity (02/17/2025) Received from [facility] Hunger Vital Sign Worried About Running Out of Food in the Last Year: Never true Ran Out of Food in the Last Year: Never true Transportation Needs: No Transportation Needs (02/17/2025) Received from [facility] PRAPARE - Transportation Lack of Transportation (Medical): No Lack of Transportation (Non-Medical): No Physical Activity: Not on file Stress: Not on file Social Connections: Not on file Intimate Partner Violence: Not At Risk (05/18/2024) Humiliation, Afraid, Rape, and Kick questionnaire Fear of Current or Ex-Partner: No Emotionally Abused: No Physically Abused: No Sexually Abused: No Housing Stability: Unknown (02/17/2025) Received from [facility] Housing Stability Vital Sign Unable [...] rate a (more content not included)... [facility] 04-22-2025 History and physical note Attending History and Physical Admit Date: 04/21/2025 PCP: Tab Dupont CHIEF COMPLAINT: Wound infection Reason for Admission: Osteomyelitis History Obtained From: patient HISTORY OF PRESENT ILLNESS: Anmol is a 64 y.o. male with past medical history below who presents with chief complaint listed above. Patient sent to [facility] ER [facility] staff to leave the patient's wounds on his sacrum were worsening and becoming infected. Patient is a paraplegic for the last 4 years after surgical complication with Dr. Ashley at [facility]. ER workup was significant for sodium of [...] Resource Strain: Low Risk (04/24/2023) Received from [facility] Overall Financial Resource Strain (CARDIA) Difficulty of Paying Living Expenses: Not hard at all Food Insecurity: No Food Insecurity (02/17/2025) Received from [facility] Hunger Vital Sign Worried About Running Out of Food in the Last Year: Never true Ran Out of Food in the Last Year: Never true Transportation Needs: No Transportation Needs (02/17/2025) Received from [facility] PRAPARE - Transportation Lack of Transportation (Medical): No Lack of Transportation (Non-Medical): No Physical Activity: Not on file Stress: Not on file Social Connections: Not on file Intimate Partner Violence: Not At Risk (05/18/2024) Humiliation, Afraid, Rape, and Kick questionnaire Fear of Current or Ex-Partner: No Emotionally Abused: No Physically Abused: No Sexually Abused: No Housing Stability: Unknown (02/17/2025) Received from [facility] Housing Stability Vital Sign Unable [...] - DO NOT do CPR, intubation] [_] [DNR-BACKUP ENGINEER - Comfort care only] [_] DNR form [...] DECOMPRESSION performed by Opal Vigil MD at [facility] OR ORTHOPEDIC SURGERY Right removal of hardware [...] Mike Bueno MD documented in this encounter [facility] 04-21-2025 Emergency department Note Placed new meplix pads on open wounds on sacrum. Pictures updated in pt's chart. [facility] 04-21-2025 Emergency department Note Placed new meplix pads on open wounds on sacrum. Pictures updated in pt's chart. EMERGENCY DEPARTMENT ENCOUNTER Pt Name: Anmol Reynolds Birthdate 1960 Date of evaluation: 04/21/2025 ED Provider: Chele León MD CHIEF COMPLAINT Chief Complaint Patient presents with Wound Infection Per EMS pt was sent here from the [place] for wound infections. Pt has two wound [...] Family History[3] SOCIAL HISTORY Social History[4] SCREENINGS [place] Coma Scale Best Eye Response: Spontaneous Best [...] Procedure Abnormality Status --------- ------ Culture, Aerobic Bacteri...[[id number]] Abnormal Preliminary result Anaerobic culture[[id number]] In process Please view results for these [...] Mini-Bag Plus (0 mg IntraVENous Stopped 04/21/25 3818) iopamidol (Isovue-370) 76 % injection 75 mL [...] DECOMPRESSION performed by Opal Vigil MD at [facility] OR ORTHOPEDIC SURGERY Right removal of hardware [...] Resource Strain: Low Risk (04/24/2023) Received from [facility] Overall Financial Resource Strain (CARDIA) Difficulty of Paying Living Expenses: Not hard at all Food Insecurity: No Food Insecurity (02/17/2025) Received from [facility] Hunger Vital Sign Worried About Running Out of Food in the Last Year: Never true Ran Out of Food in the Last Year: Never true Transportation Needs: No Transportation Needs (02/17/2025) Received from [facility] PRAPARE - Transportation Lack of Transportation (Medical): No Lack of Transportation (Non-Medical): No Intimate Partner Violence: Not At Risk (05/18/2024) Humiliation, Afraid, Rape, and Kick questionnaire Fear of Current or Ex-Partner: No Emotionally Abused: No Physically Abused: No Sexually Abused: No Housing Stability: Unknown (02/17/2025) Received from [facility] Housing Stability Vital Sign Unable to Pay for Housing in the Last Year: No Homeless in the Last Year: No Chele León MD Resident 04/22/25218 Cosigned by Brad Campos MD at 04/22/2025 2:22 AM EDT documented in this encounter [facility] 04-21-2025 Physician Emergency department Note EMERGENCY DEPARTMENT ENCOUNTER Pt Name: Anmol Reynolds Birthdate 1960 Date of evaluation: 04/21/2025 ED Provider: Chele León MD CHIEF COMPLAINT Chief Complaint Patient presents with Wound Infection Per EMS pt was sent here from the [place] for wound infections. Pt has two wound [...] Family History[3] SOCIAL HISTORY Social History[4] SCREENINGS [place] Coma Scale Best Eye Response: Spontaneous Best [...] Procedure Abnormality Status --------- ------ Culture, Aerobic Bacteri...[[id number]] Abnormal Preliminary result Anaerobic culture[[id number]] In process Please view results for these [...] received IV vancomycin, IV cefepime for coverage. [facility] hospitalist was consulted for admission for osteomyelitis [...] DECOMPRESSION performed by Opal Vigil MD at [facility] OR ORTHOPEDIC SURGERY Right removal of hardware [...] Resource Strain: Low Risk (04/24/2023) Received from [facility] Overall Financial Resource Strain (CARDIA) Difficulty of Paying Living Expenses: Not hard at all Food Insecurity: No Food Insecurity (02/17/2025) Received from [facility] Hunger Vital Sign Worried About Running Out of Food in the Last Year: Never true Ran Out of Food in the Last Year: Never true Transportation Needs: No Transportation Needs (02/17/2025) Received from [facility] PRAPARE - Transportation Lack of Transportation (Medical): No Lack of Transportation (Non-Medical): No Intimate Partner Violence: Not At Risk (05/18/2024) Humiliation, Afraid, Rape, and Kick questionnaire Fear of Current or Ex-Partner: No Emotionally Abused: No Physically Abused: No Sexually Abused: No Housing Stability: Unknown (02/17/2025) Received from [facility] Housing Stability Vital Sign Unable to Pay for Housing in the Last Year: No Homeless in the Last Year: No Chele León MD Resident 04/22/25 0219 Cosigned by Brad Campos MD at 04/22/2025 2:22 AM EDT [facility] 04-21-2025 Physician Emergency department Note Patient: [...] EMS pt was sent here from the [place] for wound infections. Pt has two wound [...] Procedure Abnormality Status --------- ------ Culture, Aerobic Bacteri...[[id number]] Abnormal Preliminary result Anaerobic culture[[id number]] In process Please view results for these [...] DECOMPRESSION performed by Opal Vigil MD at [facility] OR ORTHOPEDIC SURGERY Right removal of hardware [...] Resource Strain: Low Risk (04/24/2023) Received from [facility] Overall Financial Resource Strain (CARDIA) Difficulty of Paying Living Expenses: Not hard at all Food Insecurity: No Food Insecurity (02/17/2025) Received from [facility] Hunger Vital Sign Worried About Running Out of Food in the Last Year: Never true Ran Out of Food in the Last Year: Never true Transportation Needs: No Transportation Needs (02/17/2025) Received from [facility] PRAPARE - Transportation Lack of Transportation (Medical): No Lack of Transportation (Non-Medical): No Intimate Partner Violence: Not At Risk (05/18/2024) Humiliation, Afraid, Rape, and Kick questionnaire Fear of Current or Ex-Partner: No Emotionally Abused: No Physically Abused: No Sexually Abused: No Housing Stability: Unknown (02/17/2025) Received from [facility] Housing Stability Vital Sign Unable to Pay for Housing in the Last Year: No Homeless in the Last Year: No Brad Campos MD 04/22/25 0201 [employer] Phone: 03-24-2025 Telephone encounter Note Per op note pt should get a renal US in [address]. [address] the order? [facility] 03-24-2025 Miscellaneous Notes Per op note pt should get a renal US in [address] the order? documented in this encounter [facility] 03-20-2025 Note HNO ID: [id number] Author: JAX VALENZUELA APRN.PARTY SUPPLY SPECIALIST Service: Anesthesiology Author Type: Nurse Rn Ambulatory Type: Anesthesia Procedure Notes Filed: 03/20/2025 10:33 [...] March 20, 2025 TIME: 10:32 AM CSN: [id number] [facility] 03-20-2025 Note HNO ID: [id number] Author: JAX VALENZUELA APRN.PARTY SUPPLY SPECIALIST Service: Anesthesiology Author Type: Nurse Rn Ambulatory Type: Anesthesia Procedure Notes Filed: 03/20/2025 10:32 Note Text: ANESTHESIOLOGY PROCEDURE NOTE Airway General Information Procedure Start Time/Medication Administration: 03/20/2025 10:27 AM Procedure End Time: 03/20/2025 10:27 AM Patient location during procedure: OR Consent Obtained: Yes Patient identity confirmed: arm band and patient Staffing PARTY SUPPLY SPECIALIST: Jax Valenzuela APRN.PARTY SUPPLY SPECIALIST Performed by: BENJA Indications and Patient [...] March 20, 2025 TIME: 10:32 AM CSN: [id number] [facility] 03-15-2025 Telephone encounter Note Spoke to nursing facility who states Pt is going to proceed with surgery at [facility]. [facility] 03-15-2025 Miscellaneous Notes Spoke to nursing facility who states Pt is going to proceed with surgery at [facility]. Left message for Pts nurse to call me back. Can you call [facility] and see if they are going to send disc to us? Or if patient still scheduled for procedure at [facility]. [facility] number: [phone] Still need disc with images. Will need to review with Dr. Grimm. Is it OK to get Pt scheduled for surgery? Please advise. Talked to staff from [facility] that patient would like to have procedure at [facility]. Requested that CD with images from [facility] be sent to [facility] urology. Staff will let Fariedh know- she does scheduling/arranges procedures for residents. [facility] number: [phone] documented in this encounter [facility] 03-15-2025 Telephone encounter Note Left message for Pts nurse to call me back. [facility] 03-14-2025 Note HNO ID: [id number] Author: MILAD GOODSON MD Service: ? Author Type: Physician Type: Progress Notes Filed: 03/20/2025 10:37 Note Text: INFECTIOUS DISEASE WOUND CENTER NOTE Patient Name: nAmol Given Date: 03/14/2025 ASSESSMENT: Worsening ischial wound post hospitalization at [facility] recently Chronic sacral S5 segment chronic [...] clinical infection in the area Wound center POWDER PRESS OPERATOR follow up in 1 week INTERVAL HISTORY: ROS done with pt and negative unless stated. Was recently admitted to [facility] and needed intubation and ventilation. Since [...] 11/25/2021 8 09/06/2021 (more content not included)... [facility] 03-14-2025 History of Present illness Narrative Images from the original note were not included. INFECTIOUS DISEASE WOUND CENTER NOTE Patient Name: Anmol Reynolds Date: 03/14/2025 ASSESSMENT: Worsening ischial wound post hospitalization at [facility] recently Chronic sacral S5 segment chronic [...] clinical infection in the area Wound center POWDER PRESS OPERATOR follow up in 1 week INTERVAL HISTORY: ROS done with pt and negative unless stated. Was recently admitted to [facility] and needed intubation and ventilation. Since [...] with multiple staff Home Care Company/Nursing Facility: [facility] Consent captured for debridement per (Provider) [...] BY PROVIDER: Anesthetic Used: N/A applied per barge captain # 1 & 2 Other procedure: Specimen [...] order date DME: [employer] , PH: [phone] SPECIAL NEEDS: [phone] Emotional support N/A OR set-up N/A Inventory Administrator N/A Incontinence needs N/A DISCHARGED in stable [...] be drawn PARI and results faxed to [facility] [phone] Stop smoking EDUCATION: The patient/family was instructed [...] to ANY of questions 5-9, [facility] documented in this encounter [facility] 03-14-2025 Instructions Dawood Tiwari RN - 03/14/2025 2:16 PM EDT WOUND CARE INSTRUCTIONS- Anmol Reynolds Wound location: sacrum & left ischium [facility] Wound Cleansing: -Gather supplies -Place down [...] following changes to the Wound Center at [phone] or go to the Emergency Department: Fever or chills Increased drainage Green or yellow drainage Foul odor Increased pain Hardness around the wound Redness, warmth or swelling of the surrounding tissue Color change to the wound When contacting the wound center at the ([phone]): Leave a message that includes your full [...] be drawn PARI and results faxed to [facility] [phone] Stop smoking Milad Goodson MD/jose/lt documented in this encounter [facility] 03-14-2025 Note HNO ID: [id number] Author: DAWOOD TIWARI RN Service: ? Author Type: Registered Nurse Type: Progress Notes Filed: 03/14/2025 14:54 Note Text: Nursing Documentation Pertinent Medical History: paraplegia, MRSA, osteomyelitis, UTI, DM2, neuropathy, pyelonephritis, Wound Etiology according to patient: sacrum wound has had for four years per pt Patient arrived via: self in motorized wheelchair - patient is a [place] with multiple staff Home Care Company/Nursing Facility: [facility] Consent captured for debridement per (Provider) and good until Special Instructions (for example, patient stands at the bedside for exam/dressing): bed Anticoagulant Therapy: Eliquis Living Situation (ie... Apartment, house, [facility]: facility [...] BY PROVIDER: Anesthetic Used: N/A applied per barge captain # 1 AND 2 Other procedure: Specimen [...] order date DME: [employer] , PH: [phone] SPECIAL NEEDS: EFax orders to [facility] [phone] Emotional support N/A OR set-up N/A Inventory Administrator N/A Incontinence needs N/A DISCHARGED in stable [...] be drawn PARI and results faxed to [facility] [phone] Stop smoking EDUCATION: The patient/family was instructed [...] had radiation therapy (more content not included)... [facility] 03-14-2025 Note Can you call [facility] and see if they are going to send disc to us? Or if patient still scheduled for procedure at [facility]. [facility] number: [phone] [facility] 03-14-2025 Telephone encounter Note Can you call [facility] and see if they are going to send disc to us? Or if patient still scheduled for procedure at [facility]. [facility] number: [phone] [facility] Phone: 03-14-2025 Miscellaneous Notes Can you call [facility] and see if they are going to send disc to us? Or if patient still scheduled for procedure at [facility]. [facility] number: [phone] Still need disc with images. Will need to review with Dr. Grimm. Is it OK to get Pt scheduled for surgery? Please advise. Talked to staff from [facility] that patient would like to have procedure at [facility]. Requested that CD with images from [facility] be sent to [facility]. Staff will let Farideh know- she does scheduling/arranges procedures for residents. [facility]: [phone] documented in this encounter [facility] 03-13-2025 Telephone encounter Note Still need disc with images. Will need to review with Dr. Grimm. [facility] Phone: 03-13-2025 Miscellaneous Notes Still need disc with images. Will need to review with Dr. Grimm. Is it OK to get Pt scheduled for surgery? Please advise. Talked to staff from [facility] that patient would like to have procedure at [facility]. Requested that CD with images from [facility] be sent to [facility]. Staff will let Farideh know- she does scheduling/arranges procedures for residents. [facility] number: [phone] documented in this encounter [facility] 03-13-2025 Telephone encounter Note Is it OK to get Pt scheduled for surgery? Please advise. [facility] 03-08-2025 Telephone encounter Note Patient is scheduled and longterm was notified. Information was faxed. [facility] 03-08-2025 Miscellaneous Notes Patient is scheduled and longterm was notified. Information was faxed. [facility] Needs outpt cysto, pyelograms, bilateral stent change vs removal in 2-3 weeks. documented in this encounter [facility] 03-07-2025 Note Talked to staff from [facility] that patient would like to have procedure at [facility]. Requested that CD with images from [facility] be sent to [facility]. Staff will let Farideh know- she does scheduling/arranges procedures for residents. [facility] number: [phone] [facility] 03-07-2025 Telephone encounter Note Talked to staff from [facility] that patient would like to have procedure at [facility]. Requested that CD with images from [facility] be sent to [facility]. Staff will let Farideh know- she does scheduling/arranges procedures for residents. [facility] number: [phone] [facility] 03-07-2025 Miscellaneous Notes Talked to staff from [facility] that patient would like to have procedure at [facility]. Requested that CD with images from [facility] be sent to [facility]. Staff will let Farideh know- she does scheduling/arranges procedures for residents. [facility]: [phone] documented in this encounter [facility] 03-07-2025 History of Present illness Narrative Images from the original note were not included. JOE Burks CNP 03/07/2025 9:15 AM Urology Office Visit [facility] [address], [address] [facility] [id number] PATIENT NAME: Anmol Franco Given DATE OF [...] negative rods. Treated. Follow up outpatient with [facility] urology Patient is scheduled for surgery w Dr Maria on 03/20/25 however he prefers treatment at [facility] Will need images for surgery [...] 8. Details above. 9. Follow-up as indicated. Director Of Rehabilitation And Wellness: CECILIA Transcribe Date/Time: Feb 16 2025 10:02P Dictated by : CORBIN PERRY MD This examination was interpreted and the report reviewed and electronically signed by: CORBIN PERRY MD on Feb 16 2025 10:34PM EST Narrative * * *Final Report* * * DATE OF EXAM: Feb 16 2025 8:33PM [facility] 0530 - CT ABD/PEL W IVCON [...] Follow up: No follow-ups on file. Yoana Soiltario APRN - NETWORK AND THREAT SUPPORT SPECIALIST [facility] Please note that portions of this chart were dictated using [employer] ([employer]) voice recognition software. It is possible that [...] DECOMPRESSION performed by Opal Vigil MD at [facility] OR ORTHOPEDIC SURGERY Right removal of hardware ankle US PLACE URETAL STENT PERC PRE-EXIST TRACT S&I (HISTORICAL) Bilateral 04/14/2024 Dr. Grimm/Bashir [3] No Known Allergies documented in this encounter [facility] 03-07-2025 Instructions JOE Burks CNP - 03/07/2025 9:00 AM EDT Need images from [facility] on disc brought to office for review in order for patient to have ureteral stent treatment at [facility]. Patient prefers [facility]. CT abdomen/pelvis 02/16/25 XR abdomen 02/16/25 and 02/17/25 Planning for ESWL vs laser litho w stent exchange. documented in this encounter [facility] 02-22-2025 Note HNO ID: [id number] Author: JESSICA CLEMENT RPh Service: Pharmacy Author [...] discharge medication list. Jessica Clement RPh Pager: [phone] 02/22/2025 3:26 PM Medication List START taking [...] [facility] 02-22-2025 Note HNO ID: [id number] Author: ANDREA PALENCIA RN Service: Care Management Author Type: Registered Nurse Type: Care Mgt Progress Note Filed: 02/22/2025 15:26 Note Text: CARE MANAGEMENT DISCHARGE NOTE SERVICE DATE: February 22, 2025 SERVICE TIME: 3:24 PM Admission Date: 02/16/2025 LOS: 5 days Discharge Arrangement Discharge Arrangement: Extended Care Facility Services Arranged Provider Name: [facility] Caregiver Assessment Caregiver is ready, willing and able to meet the patient's needs as recommended by the inter-professional team: Yes Name of Caregiver: Facility staff Transportation Arrangements Transportation Arrangements: Ambulance Transportation Agency and Phone #:: [facility] ( [facility] ) [phone] / [phone] Date of Trip: 02/22/25 Time of Trip: 1999 Type of Service: BLS Non-emergency Is Patient Medicaid Pending?: No Was transportation financial coverage discussed with family?: 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 Will D/C today at 8 pm via cot with [employer].. D/C paperwork sent electronically and RN to call N2N report. Pt stated he called his brother re: the D/C and time of return to [facility]. SIGNATURE: Andrea Palencia RN PATIENT NAME: Anmol Given DATE: February 22, 2025 TIME: 3:24 PM [facility] 02-22-2025 Note HNO ID: [id number] Author: ANDREA PALENCIA RN Service: Care Management Author Type: Registered Nurse Type: Care Mgt Progress Note Filed: 02/22/2025 15:22 Note Text: CARE MANAGEMENT PROGRESS NOTE SERVICE DATE: 02/22/2025 SERVICE TIME: 3:22 PM LOS: 5 days IMM Follow Up Copy Given: Yes Copy given to:: Patient Physical Therapist Technician Name/Relationship: Daughter Sumi Method: In Person Met with pt in room and explained the IMM, he states he understands. He is agreeable to D/C. SIGNATURE: Andrea Palencia RN PATIENT NAME: Anmol Given DATE: February 22, 2025 TIME: 3:22 PM [facility] 02-22-2025 Note HNO ID: [id number] Author: ANDREA PALENCIA RN Service: Care Management Author Type: Registered Nurse Type: Care Mgt Progress Note Filed: 02/22/2025 13:53 Note Text: CARE MANAGEMENT PROGRESS NOTE SERVICE DATE: 02/22/2025 SERVICE TIME: 1:53 PM LOS: 5 days IMM Follow Up Copy Given: Yes Copy given to:: Patient Physical Therapist Technician Physical Therapist Technician Name/Relationship: Ilir Jonas Method: By Phone SIGNATURE: Andrea Palencia RN PATIENT NAME: Anmol Given DATE: February 22, 2025 TIME: 1:53 PM [facility] 02-21-2025 Note HNO ID: [id number] Author: ANDREA PALENCIA RN Service: Care Management Author Type: Registered Nurse Type: Care Mgt Progress Note Filed: 02/21/2025 15:41 Note Text: CARE MANAGEMENT PROGRESS NOTE SERVICE DATE: 02/21/2025 SERVICE TIME: 3:39 PM LOS: 4 days D/C plan to return To [place] at [facility] when medically ready. D/C packet created and will need cot transport when ready. SIGNATURE: Andrea Palencia RN PATIENT NAME: Anmol Given DATE: February 21, 2025 TIME: 3:39 PM [facility] 02-21-2025 Note HNO ID: [id number] Author: BRIA SHER MD Service: Hospital Medicine Author Type: Physician Type: Progress Notes Filed: 02/21/2025 13:23 Note Text: DEPARTMENT OF HOSPITAL MEDICINE Hospital Medicine/Primary Attending: Bria Sher MD NIGHT AND WEEKEND COVERAGE: After 7pm please page [phone] MEDICATIONS: Current Facility-Administered Medications Medication Dose Route [...] -- 4.0 COAG: Recent Labs 02/19/25 1051 02/19/2541802/18/25201102/18/25 1300 02/18/25 0643 02/18/25 0021 02/17/25 [...] [facility] 02[facility] Note HNO ID: [id number] Author: YOANA OROSCO, RN Service: ? Author Type: Registered Nurse Type: Nursing Progress Note Filed: 02/20/2025 18:07 Note Text: Other: Report called to 4100 RN. [facility] 02-20-2025 Note HNO ID: [id number] Author: GAYLE SCOTT MD Service: Infectious Disease [...] and UTI. Spinal cord injury residing at [facility], presented to [facility] 02/16/2025 for unresponsiveness when normally alert [...] [facility] 02-20-2025 Note HNO ID: [id number] Author: PENNY VILLASEÑOR RN Service: Care Management Author Type: Registered Nurse Type: Care Mgt Progress Note Filed: 02/20/2025 16:13 Note Text: CARE MANAGEMENT PROGRESS NOTE SERVICE DATE: 02/20/2025 SERVICE TIME: 4:11 PM LOS: 3 days Needs Prior to Discharge: Discharge Transportation DC plan: [place] [facility]. Pt is LTC and a bed hold. Updates to facility. Met with pt and provided update. Pt agreeable to return. SIGNATURE: Penny Villaseñor RN PATIENT NAME: Anmol Given DATE: February 20, 2025 TIME: 4:11 PM [facility] 02-20-2025 Note HNO ID: [id number] Author: ELIZABETH SOLER MD Service: Critical Care Author Type: Physician Type: Progress Notes Filed: 02/20/2025 13:05 Note Text: [facility] STAFF PHYSICIAN NOTE OF PERSONAL [...] improves Urology input appreciated, follow up at [facility] urology Remains off of amiodarone, [...] [facility] 02-20[facility]25 Note HNO ID: [id number] Author: ELIZABETH SOLER MD Service: Critical Care [...] hematuria The patient initially presented to the [facility] ED on February 16, 2025 after being found unresponsive at his assisted facility. MICU was consulted for septic shock, [...] COAG: Recent Labs 02/19/25 1051 02/19/25 0419 02/18/25 2012 02/18/25 1300 02/18/25 0643 02/18/25 0021 02/17/25 1728 [...] Value Units Date/Time Respiratory Culture and Stain [[id number]] (Abnormal) (Susceptibility) Collected: 02/17/25 1010 Order Status: [...] [facility] 02-19-2025 Note HNO ID: [id number] Author: GAYLE SCOTT MD Service: Infectious Disease Author Type: Physician Type: Plan of Care Filed: 02/19/2025 18:36 Note Text: ID Continuing meropenem due to multiple gram-negative's and Enterococcus faecalis in blood and urine culture Gayle Scott MD 02/19/2025 6:36 PM [facility] 4195 [facility] 02-19-2025 Telephone encounter Note Needs outpt cysto, pyelograms, bilateral stent change vs removal in 2-3 weeks. [facility] Work Phone: 02-19-2025 Note HNO ID: [id number] Author: RADHA GRAHAM RPh Service: Pharmacy Author [...] inpatient anticoagulation education is needed. Radha Graham [facility] 02-19-2025 Note HNO ID: [id number] Author: ANMOL HERBERT MD Service: Urology Author [...] was discussed with the patient or authorized transportation services representative. The patient or authorized transportation services representative has agreed to proceed with the sensitive examination. Labs and Imaging Studies LABS: BMP: Recent Labs 02/19/259 02/18/250 02/17/25224 NA 137 135* 132* K 3.7 3.9 4.7 CHLOR 106 104 104 CO2 21* 20* 17* BUN 36* 37* 34* CREAT 0.64* 1.04 1.90* GLUC 115* 177* 225* CBC: Recent Labs 02/19/25 0419 02/18/25 0420 02/17/25 1009 02/17/2522402/16/25 1922 WBC 9.94 13.39* 14.96* 19.64* 10.29 HB 11.1* 11.3* 13.1 11.9* 11.6* HCT 32.5* 33.9* 41.4 36.6* 34.9* PLT 87* 69* 64* 93* 108* Urinalysis: Specific [place], Ur Date Value Ref Range Status 02/16/2025 [...] male with chronic bilateral stents placed at [facility] in MAY 2024 - no [...] with any questions or concerns Tiffanie Baltazar, DO Urology PGY-1 February 19, 2025 10:11 AM [facility] 02-19-2025 Note HNO ID: [id number] Author: ELIZABETH SOLER MD Service: Critical Care [...] hematuria The patient initially presented to the [facility] ED on February 16, 2025 after being found unresponsive at his assisted facility. MICU was consulted for septic shock, [...] this admission. Pt can follow up with [facility] Urology Infectious disease: Discontinue vancomycin [...] -- -- 4.0 COAG: Recent Labs 02/19/25 04102/18/25201102/18/25 1300 02/18/25 0643 02/18/25 0021 [...] Value Units Date/Time Respiratory Culture and Stain [[id number]] (Abnormal) Collected: 02/17/25 1010 Order Status: Completed Specimen: Sputum Updated: 02/18/25 0916 Culture, Respiratory Few Normal respiratory gosia present Gram Stain Few Mixed oral gosia Rare Polymorphonuclear leukocytes Few Epithelial cells Blood Culture [[id number]] (Abnormal) Collected: 02/16/25 1928 Order Status: Completed Specimen: Blood Updated: 02/18/25 1603 Culture, Blood Culture report of Enterococcus faecalis Comment: Cephalosporins, clindamycin, and TMP-SMX are not effective for the treatment of enterococcal (more content not included)... [facility] 02-19-2025 Note HNO ID: [id number] Author: NOTE, INTERFACE, ? Service: ? Author Type: ? Type: Progress Notes Filed: 02/19/2025 02:55 Note Text: Epic Scheduled Downtime: 02/19/2025 1:00:00 AM to 02/19/2025 2:37:00 AM [facility] 02-18-2025 Note HNO ID: [id number] Author: GAYLE SCOTT MD Service: Infectious Disease [...] and UTI. Spinal cord injury residing at [facility], presented to [facility] 02/16/2025 for unresponsiveness when normally alert [...] [facility] 02-18-2025 Note HNO ID: [id number] Author: ANMOL HERBERT MD Service: Urology Author [...] Value 02/18/2025 69 11/25/2021 275 Urinalysis: Specific [place], Ur Date Value Ref Range Status 02/16/2025 [...] male with chronic bilateral stents placed at [facility] in MAY 2024 PLAN: - No acute intervention - Given pt improvement on current regimen, no plans for surgery this admission - Pt can follow up with [facility] Urology - Appreciate ICU care Jose Blair MD PGY1 Urology 12:22 PM 02/18/25 [facility] 02-18-2025 Note HNO ID: [id number] Author: JON MCDONALD MD Service: Critical Care Author Type: Physician Type: Progress Notes Filed: 02/18/2025 13:06 Note Text: [facility] STAFF PHYSICIAN NOTE OF PERSONAL [...] [facility] 02-18-2025 Note HNO ID: [id number] Author: JON MCDONALD MD Service: Critical Care [...] intubation. The patient initially presented to the [facility] ED on February 16, 2025 after being found unresponsive at his assisted facility, last known well 1700 today INTERVAL [...] this admission. Pt can follow up with [facility] Urology Infectious disease: Discontinue vancomycin [...] Value Units Date/Time Respiratory Culture and Stain [[id number]] (Abnormal) Collected: 02/17/25 1010 Order Status: Completed Specimen: Sputum Updated: 02/17/25 1328 Gram Stain Few Mixed oral gosia Rare Polymorphonuclear leukocytes Few Epithelial cells Blood Culture [[id number]] (Abnormal) Collected: 02/16/251927 Order Status: Completed Specimen: Blood Updated: 02/17/25 1049 Gram Stain Gram positive cocci in pairs and chains Gram negative bacilli Blood Culture [[id number]] (Abnormal) Collected: 02/16/251921 Order Status: Completed Specimen: [...] [facility] 02-18-2025 Note HNO ID: [id number] Author: NOTE, INTERFACE, ? Service: ? Author Type: ? Type: Progress Notes Filed: 02/18/2025 03:47 Note Text: Epic Scheduled Downtime: 02/18/2025 1:00:00 AM to 02/18/2025 3:39:00 AM [facility] 02-17-2025 Note HNO ID: [id number] Author: ELLIOT GOMEZ, RN Service: Care Management Author Type: Registered Nurse Type: Care Mgt Initial Assessment Filed: 02/17/2025 13:50 Note Text: CARE MANAGEMENT: ASSESSMENT AND DISCHARGE PLAN SERVICE DATE: February 17, 2025 SERVICE TIME: 1343 PCP: No primary care provider on file. Primary Contact: Extended Emergency Contact Information Primary Emergency Contact: SUMI REYNOLDS Mobile Relation: Daughter Secondary Emergency Contact: Ronald Reynolds Address: [address] [place] [address] Mobile Relation: Brother Admission Status: Inpatient Insurance Provider: [employer]ALIA GARBER MEDICARE Discharge Planning requested by: Per Department Practice Potential Transition Plans Snf Facility/Intermediate Care Facility Advance Directives Current Advance Directive: None [employer] Attempted to Assist with AD Completion: Yes Action: Education Provided Current Living Arrangements and Support Lives with: Other person(s) Type of Residence: Extended Care Facility Does the patient have to climb stairs at home?: No Care Facility Name: [facility] Support: Children, Other: See Comment F staff How do you manage to accomplish the following: Dependent: Ambulation, Bathe/Shower, Meals/Meal Prep, Dress, Going to the bathroom, Medication Management, Transportation to appointments/community Current Services/Equipment Current Post-Acute Service(s): DME Current DME Type: Wheelchair-electric, [place] [employer]ift Discharge Planning Patient Goal(s): General wellness [place] of Choice Explained: [place] Given: No Reason Not Given: No placements necessary Are you interested in bedside delivery of your medications? No Discharge Planning Participant(s): Patient, Children Patient/Family Comments: Caregiver Assessment: Caregiver is ready, willing and able to meet the patient's needs as recommended by the inter-professional team: Yes Name of Caregiver: [facility] Transport at Discharge: Transportation Arrangements: Ambulance Transportation Agency and Phone #:: [facility] ( [facility] ) [phone] / [phone] Needs Prior to Discharge: Needs Prior to Discharge: To Be Determined, OT/PT Evaluation, Discharge Transportation Post-Acute Discharge Plan: Met with patient and daughter Sumi in room. Extubated this morning. POST OFFICE CLERK patient admitted from [facility] for septic shock. Patient is LTC and a bed hold at the facility. Plan is to return to [place] at discharge per daughter. Recommend therapy evals when appropriate. Patient will need precert if skilled is needed on return. Patient will need cot transport at discharge. CM will continue to follow. SIGNATURE: Elliot Gomez RN PATIENT NAME: Anmol Given DATE: February 17, 2025 TIME: 1:43 PM [facility] 02-17-2025 Note HNO ID: [id number] Author: JESSICA CLEMENT RPh Service: Pharmacy Author Type: Pharmacist Type: Plan of Care Filed: 02/21/2025 09:54 Note Text: PHARMACY MEDICATION REVIEW Patient Name: Anmol Given : 1960 The following medications were updated within the POST OFFICE CLERK medication list: Medications ADDED to POST OFFICE CLERK medication list aspirin, enteric coated (ASPIRIN, ENTERIC [...] hours as needed (heartburn). Medications CHANGED on POST OFFICE CLERK medication list Medications REMOVED from POST OFFICE CLERK medication list alogliptin benzoate (ALOGLIPTIN ORAL) Adjust [...] E-Cancel Additional comments: Verified medication information with [facility]. Removed medications listed above from med list to match [facility] med list. Added medications listed above to med list to match [facility] med list. Required follow up actions for nursing: None The below information represents the best possible medication history: Yes Medication history completed by: Answerer: Rosa Brice (Vat Skimmer) Source of history: [facility]Other [facility] and [facility] records Medication nonadherence identified: No barriers noted Reconciliation completed: Yes Completed by: TREV All POST OFFICE CLERK medications addressed by TREV Patient interested in Bedside Delivery Services or using OP Pharmacy at discharge? No Preferred outpatient pharmacy: [facility] Allergies: No Known Allergies Prior [...] [facility] 02-17[facility]2025 Note HNO ID: [id number] Author: JON MCDONALD MD Service: Critical Care Author Type: Physician Type: Progress Notes Filed: 02/17/2025 13:12 Note Text: [facility] STAFF PHYSICIAN NOTE OF PERSONAL [...] [facility] 02-17-2025 Note HNO ID: [id number] Author: JON MCDONALD MD Service: Critical Care [...] intubation. The patient initially presented to the [facility] ED on February 16, 2025 after being found unresponsive at his assisted facility, last known well 1700 today INTERVAL [...] [facility] 02-16-2025 Note HNO ID: [id number] Author: ROZ MIKE RN Service: ? Author Type: Registered Nurse Type: ED Notes Filed: 02/16/2025 19:48 Note Text: Restraints applied at this time, bilateral upper extremity softs. [facility] 01-31-2025 Instructions Rj Brooks RN - 01/31/2025 2:01 PM EDT WOUND CARE INSTRUCTIONS- Anmol Reynolds Wound location: sacrum & left ischium [place] [facility] -Gather supplies -Place down a clean [...] the wound base. - Cover with 4x4 [place] SAP. - Change your dressing daily and [...] following changes to the Wound Center at [phone] or go to the Emergency Department: Fever or chills Increased drainage Green or yellow drainage Foul odor Increased pain Hardness around the wound Redness, warmth or swelling of the surrounding tissue Color change to the wound When contacting the wound center at the ([phone]): Leave a message that includes your full [...] Blood work ordered please go to any [facility] lab. - Please send patient with medication list at next appointment. - Continue aggressive nutritional support to assist wound healing - CAT Scans & MRI need to be scheduled through [facility]. Call [phone].(If applicable) Milad Goodson MD/jason/fm documented in this encounter [facility] 01-31-2025 Note HNO ID: [id number] Author: MILAD GOODSON MD Service: ? Author [...] Chronic pain of right ankle 11/26/2021 Diabetes ([facility]) Elevated CA 19-9 level 08/21/2021 Epidural abscess ([facility]) 01/04/2022 MRSA bacteremia 11/27/2021 Neuropathy Nicotine use disorder, F17.2 06/14/2019 Pilonidal cyst with abscess 12/31/2020 Pilonidal cyst without abscess 05/29/2020 Pyelonephritis 11/27/2021 Sciatica Severe protein-calorie malnutrition ([facility]) 09/04/2021 Type 2 diabetes mellitus with hyperglycemia, with long-term current use of insulin ([facility]) 01/18/2021 Ureteral stone 11/25/2021 UTI (urinary tract infection) 11/26/2021 Vertebral osteomyelitis ([facility]) 01/04/2022 PAST SURGICAL HISTORY Procedure Laterality [...] negative unless stat (more content not included)... [facility] 01-31-2025 History of Present illness Narrative [...] in motorized wheelchair Home Care Company/Nursing Facility: [place] [facility] Consent captured for debridement per (Provider) and good until Special Instructions (for example, patient stands at the bedside for exam/dressing): bed Anticoagulant Therapy: aspirin Living Situation (ie... Apartment, house, P[facility] Who [facility] with patient: facility Who [...] BY PROVIDER: Anesthetic Used: N/A applied per barge captain # 1 & 2 Other procedure: Specimen [...] alginate AG Covered and secured with: 4x4 [place] SAP Other: COMPRESSION: N/A DME: Prism order date __ DME: [employer] , PH: [phone] SPECIAL NEEDS: Coordination of care N/A Emotional support N/A OR set-up N/A Inventory Administrator N/A Incontinence needs N/A DISCHARGED in stable condition to: facility in motorized wheelchair PLAN/ORDERS: - Return to the Wound Center to see Milad Goodson MD in 6 weeks. - Blood work ordered please go to any [facility] lab. - Please send patient with medication list at next appointment. - Continue aggressive nutritional support to assist wound healing - CAT Scans & MRI need to be scheduled through [facility]. Call [phone].(If applicable) EDUCATION: The patient/family was instructed how [...] to ANY of questions 5-9, [facility] Rj Brooks RN/fm documented in this encounter [facility] 01-31-2025 Note HNO ID: [id number] Author: RJ BROOKS RN Service: ? Author Type: Registered Nurse Type: Progress Notes Filed: 01/31/2025 14:59 Note Text: Nursing Documentation Pertinent Medical History: paraplegia, MRSA, osteomyelitis, UTI, DM2, neuropathy, pyelonephritis, Wound Etiology according to patient: sacrum wound has had for four years per pt Patient arrived via: self in motorized wheelchair Home Care Company/Nursing Facility: [facility] Consent captured for debridement per (Provider) and good until Special Instructions (for example, patient stands at the bedside for exam/dressing): bed Anticoagulant Therapy: aspirin Living Situation (ie... Apartment, house, PENITENTIARY): [facility] Who lives with patient: facility Who [...] BY PROVIDER: Anesthetic Used: N/A applied per barge captain # 1 AND 2 Other procedure: Specimen [...] 0.2 cm Cleansed with: vashe Applied to cheynene-wound skin: skin prep Applied to wound bed: calcium alginate AG Covered and secured with: 4x4 [place] SAP Other: COMPRESSION: N/A DME: Prism order date __ DME: [employer] , PH: [phone] SPECIAL NEEDS: Coordination of care N/A Emotional support N/A OR set-up N/A Inventory Administrator N/A Incontinence needs N/A DISCHARGED in stable condition to: facility in motorized wheelchair PLAN/ORDERS: - Return to the Wound Center to see Milad Goodson MD in 6 weeks. - Blood work ordered please go to any [facility] lab. - Please send patient with medication list at next appointment. - Continue aggressive nutritional support to assist wound healing - CAT Scans AND MRI need to be scheduled through [facility]. Call [phone].(If applicable) EDUCATION: The patient/family was instructed how [...] consult the [facility] Rj Brooks RN/fm [facility] 01-04-2025 History of Present illness Narrative [...] PATIENT PRESENTS WITH AN IMPLANTABLE OR ATTACHED LEASING COORDINATOR: No ALLERGIES: Reviewed and unchanged CONTRAST ALLERGY: NO. EXAM: MRI - CONTRAST TYPE: GROUP II PERIPHERAL IV DATA: DIANA PAVON IV RADIOLOGY DEPARTMENT: MR; Exam(s) Completed: Spine: Sacrum/Coccyx SIGNATURE: Joy Gong, LIZ PATIENT NAME: Anmol Given DATE: January 04, 2025 TIME: 8:49 AM documented in this encounter [facility] 01-04-2025 Note HNO ID: [id number] Author: AMBROSIO BAUGH RT(R) Service: Radiology Author [...] PATIENT PRESENTS WITH AN IMPLANTABLE OR ATTACHED LEASING COORDINATOR: No ALLERGIES: Reviewed and unchanged CONTRAST ALLERGY: NO. EXAM: MRI - CONTRAST TYPE: GROUP II PERIPHERAL IV DATA: RAD RN IV RADIOLOGY DEPARTMENT: MR; Exam(s) Completed: Spine: Sacrum/Coccyx SIGNATURE: LIZ Roth PATIENT NAME: Anmol Reynolds DATE: January 04, 2025 TIME: 8:49 AM [facility] 01-04-2025 Note HNO ID: [id number] Author: JOVANY JOHNSTON RN Service: Radiology Author [...] DATE: January 04, 2025 TIME: 8:46 AM [facility] 11-08-2024 History of Present illness Narrative [...] months (around 02/05/2025) for in-person visit with [facility]. Faisal Simeon DO 11/08/2024 documented in this encounter [facility] 10-27-2024 Telephone encounter Note Returned call unable to leave message doug was out for the day [facility] 10-27-2024 Miscellaneous Notes Returned call unable to leave message doug was out for the day Name of caller: Doug Contact phone number: [phone] Relationship to Patient: Tierra Dudleyworth Provider: Dr. Gillette Practice: [facility] Chief Complaint/Reason for Call: Doug [...] on 08.04.24// Doug from [facility] [employer] appt//medicare medicaid Office Name: [facility] Medication Refills need, if any: n/a Medication Name: n/a documented in this encounter [facility] [employer] 10-26-2024 Telephone encounter Note Name of caller: Doug Contact phone number: [phone] Relationship to Patient: [place] [facility] Provider: Dr. Gillette Practice: [facility] Chief Complaint/Reason for Call: Doug states she missed a call from the office to schedule the patient and would like a return call. Please review. Best time of day caller can be reached: any Patient advised that office/PCP has 24-48 business hours to return their call: Yes [facility]-26-[facility]24 Telephone encounter Note Called and left message to call to reschedule appointment [facility] [employer] 10-25-2024 Telephone encounter Note Name of Caller: Doug Contact Reason for Appointment: Please call to r/s cx appt for 10.26.24 due to weather conditions. Follow up for pain management//no showed on 08.04.24// Doug from [facility] appt//medicare medicaid Office Name: [facility] Medication Refills need, if any: n/a Medication Name: n/a [facility] [employer] 09-30-2024 Instructions Faisal Simeon DO - 09/30/2024 1:28 PM EST Completed UDS. Inserted 18Fr 10cc santana Call to schedule appt with Urology Dr Jorge Grimm MD (Surgeon) 201 [address] [place] [address] [place] [address] scan given recurrent blood [...] burning on urination, call the office at [phone] Thursday through Thursday 8:00 AM to 4:30 PM. For emergencies, go the Emergency Room. If you do not already have a follow up appointment scheduled with your physician, call the office at [phone] to schedule one. documented in this encounter [facility] 09-30-2024 History of Present illness Narrative [...] then PVR was assessed by straight catheterization. 7-Algerian urodynamic catheter was placed in the bladder [...] oral post procedural antibiotic was prescribed to [facility] pharmacy. Overall the procedure was well tolerated [...] Void Residual (mL): 325 mL Storage phase (30171 or 45144/81019) Rate of Fluid infusion, First sensation (Normal [...] was observed only with valsalva Voiding Phase (88356/88706) Maximum flow, Pdet at maximum flow, Volume voided: See scanned report in Media EMG Anal/urinary muscle study patch (82443 -53) EMG inconclusive (connection was lost during study). [...] INTRA-ABDOMINAL VOIDING PRESSURE INSERT CATHETER (SANTANA) SIMPLE [44580] COMPLEX CYSTOMETROGRAM CT RENAL STONE nitrofurantoin monohydrate macrocrystal (Macrobid) 100 MG capsule Patient Instructions Completed UDS. Inserted 18Fr 10cc santana Call to schedule appt with Urology Dr Jorge Grimm MD (Surgeon) [address] [place] [address] scan given recurrent blood [...] burning on urination, call the office at [phone] Thursday through Thursday 8:00 AM to 4:30 PM. For emergencies, go the Emergency Room. If you do not already have a follow up appointment scheduled with your physician, call the office at [phone] to schedule one. Catheters: Continue indwelling catheterization Fluid intake: maintaining hydration Medications: contrinue flomax for stent/stones Other: See above Return to Clinic: Follow up in about 4 weeks (around 10/28/2024) for video visit (telehealth). Faisal Simeon DO 09/30/2024 documented in this encounter [facility] 08-22-2024 History of Present illness Narrative [...] Resource Strain: Low Risk (04/24/2023) Received from [facility] Overall Financial Resource Strain (CARDIA) Difficulty of Paying Living Expenses: Not hard at all Food Insecurity: No Food Insecurity (05/18/2024) Received from [facility] Hunger Vital Sign Worried About Running Out of Food in the Last Year: Never true Ran Out of Food in the Last Year: Never true Transportation Needs: No Transportation Needs (05/18/2024) Received from [facility] PRAPARE - Transportation Lack of Transportation (Medical): No Lack of Transportation (Non-Medical): No Intimate Partner Violence: Not At Risk (05/18/2024) Received from [facility] Humiliation, Afraid, Rape, and Kick questionnaire [...] Forteo or Tymlos. He is amenable. [facility] [place] is ab[place]rombie to get labs ordered Will check BMP, Vit D, PTH, SPEP Plan for Forteo if labs ok. Follow up 3 months or sooner PRN Giuliano Shultz DO documented in this encounter [facility] 08-12-2024 Telephone encounter Note Spoke with [facility] at Care Facility where pt resides and given the date and time of GYROSCOPE TECHNICIAN video visit with Dr. Shultz at 8:20 am on 08/22/24. This information will be relayed to pt. [facility] 08-12-2024 Miscellaneous Notes Spoke with Doug at Care Facility where pt resides and given the date and time of GYROSCOPE TECHNICIAN video visit with Dr. Shultz at 8:20 am on 08/22/24. This information will be relayed to pt. documented in this encounter [facility] 08-01-2024 Note Addended by: FAISAL SIMEON on: 08/01/2024 02:57 PM Modules accepted: Level of Service [facility] 08-01-2024 Note Addended by: FAISAL SIMEON on: 08/01/2024 02:57 PM Modules accepted: Level of Service [facility] 08-01-2024 Miscellaneous Notes Addended by: FAISAL SIMEON on: 08/01/2024 02:57 PM Modules accepted: Level of Service documented in this encounter [facility] 08-01-2024 Instructions Howard Dhaliwal MD - 08/01/2024 9:30 AM EDT -Continue PT/OT -Please follow your appoitment with pain team and rheumatology -You are scheduled for bladder study on 09/30/24 -continue scheduled bowel care daily documented in this encounter [facility] 07-31-2024 History of Present illness Narrative [...] following spinal surgery [place]2 yrs ago in [place] . In 2019, pt had his first back surgery performed by [facility] which was an interbody fusion. 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 At that point, the hospital took the hardware out and did not replace it with the goal of treating the infection. 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 After the infection was treated, [facility] extended his fusion, decompressed the back, and replaced all hardware. At that time he lost all motor and sensation to his lower extremities. He was independent uptill december 2021 till his last spine surgery two year ago.Since 2021 he is in longterm and he changes 5 longterm so far. Currently SNF in [facility]. Last seen on 06/13/24 in clinic and recommendations was: -Continue PT/OT -Bowel care: schedule bowel care once/day (either after breakfast or dinner) - using suppository and manual stimulation over commode chair will be more helpful than over bed . - Continue skin care - Follow [facility] service consult( we requested today ) [...] to display Other SOCIAL Home situation: NA TECHNICAL ILLUSTRATOR/RN: Currently in [facility] [place] [facility] DME: Power wheelchair, manual wheelchair Income/BWC: [...] Faisal Simeon DO documented in this encounter [facility] 07-27-[address] Grady murphy to Rheumatology. Spoke with patient's brother today who referred me to call [facility], where patient resides, to see about arranging transportation for patient to a Rheumatology appt (not scheduled yet). I spoke with a healthcare worker at [facility] and let her know we can also schedule a video visit with Dr. Hare. She will call me back after discussing with patient. [facility] 07-27-2024 Telephone encounter Note Referral from Dr. Mejia to Rheumatology. Spoke with patient's brother today who referred me to call [facility], where patient resides, to see about arranging transportation for patient to a Rheumatology appt (not scheduled yet). I spoke with a healthcare worker at [facility] and let her know we can also schedule a video visit with Dr. Hare. She will call me back after discussing with patient. [facility] 07-27-2024 Miscellaneous Notes Referral from Dr. Mejia to Rheumatology. Spoke with patient's brother today who referred me to call [facility], where patient resides, to see about arranging transportation for patient to a Rheumatology appt (not scheduled yet). I spoke with a healthcare worker at [facility] and let her know we can also schedule a video visit with Dr. Hare. She will call me back after discussing with patient. documented in this encounter [facility] 07-13-[address] Mejia referral to Rheumatology for Osteoporosis. Spoke with brother who transports pt to and from appts since pt resides in extended care facility. Brother is available on Fridays to transport pt to appts. Will call him back with options. [facility] 07-13-2024 Telephone encounter Note This is a Dr Mejia referral to Rheumatology for Osteoporosis. Spoke with brother who transports pt to and from appts since pt resides in extended care facility. Brother is available on Fridays to transport pt to appts. Will call him back with options. [facility] 07-13-2024 Miscellaneous Notes This is a Dr Mejia referral to Rheumatology for Osteoporosis. Spoke with brother who transports pt to and from [facility] since pt resides in [facility]. Brother is available on Fridays to transport pt to [facility]. Will call him back with options. documented in this encounter [facility] 06-16-2024 Note Addended by: FAISAL SIMEON on: 06/16/2024 09:13 PM Modules accepted: Level of Service [facility] 06-16-2024 Miscellaneous Notes Addended by: FAISAL SIMEON on: 06/16/2024 09:13 PM Modules accepted: Level of Service documented in this encounter [facility] 06-16-2024 Telephone encounter Note Scheduled appointment [facility] 06-16-2024 Miscellaneous Notes Scheduled appointment Doug is calling in again wanting to rescheduled they can be reached at the office anytime before 3pm. Please advise and thank you LM for Doug to call the office to discuss the pt Name of caller: Doug Contact phone number: [phone] Relationship to Patient: sanctuary Provider: [facility]pe Practice: pain management Chief Complaint/Reason for Call: doug is calling in wanting to speak to the main office. Please advise and thank you Best time of day caller can be reached: any Patient advised that office/PCP has 24-48 business hours to return their call: Yes documented in this encounter [facility] 06-16-2024 Telephone encounter Note Doug is calling in again wanting to rescheduled they can be reached at the office anytime before 3pm. Please advise and thank you [facility] 06-15-2024 Telephone encounter Note LM for Duog to call the office to discuss the pt [facility] 06-15-2024 Telephone encounter Note Name of caller: Doug Contact phone number: [phone] Relationship to Patient: twilactmohan Provider: [facility]pe Practice: pain management Chief Complaint/Reason for Call: doug is calling in wanting to speak to the main office. Please advise and thank you Best time of day caller can be reached: any Patient advised that office/PCP has 24-48 business hours to return their call: Yes [facility] 06-14-2024 Telephone encounter Note RTC to pt, left voice mail. Vladimir Asher [facility] Marking Machine Operator [phone] [facility] 06-14-2024 Miscellaneous Notes RTC to pt, left voice mail. Vladimir Asher [facility] Marking Machine Operator [phone] documented in this encounter [facility] 06-13-2024 Instructions Howard Dhaliwal MD - 06/13/2024 12:29 PM EDT -Continue PT/OT -Bowel care: schedule bowel care once/day (either after breakfast or dinner) - using suppository and manual stimulation over commode chair will be more helpful than over bed . - Continue skin care - Follow [facility] service consult( we requested today ) for benefits eligibility - Bladder: We ordered today Urodynamic study for your bladder evaluation (to see your bladder status post spinal cord injury) documented in this encounter [facility] 06-13-2024 Instructions Howard Dhaliwal MD - 06/13/2024 12:29 PM EDT -Continue PT/OT -Bowel care: schedule bowel care once/day (either after breakfast or dinner) - using suppository and manual stimulation over commode chair will be more helpful than over bed . - Continue skin care - Follow [facility] service consult( we requested today ) for benefits eligibility - Bladder: We ordered today Urodynamic study for your bladder evaluation (to see your bladder status post spinal cord injury) documented in this encounter [facility] 06-13-2024 History of Present illness Narrative Patient was identified by name and date of . Evelio Grey documented in this encounter [facility] 06-13-2024 History of Present illness Narrative [...] following spinal surgery ~2 yrs ago in [place] . In 2019, pt had his first back surgery performed by [facility] which was an interbody fusion. 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 At that point, the hospital took the hardware out and did not replace it with the goal of treating the infection. 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 After the infection was treated, [facility] extended his fusion, decompressed the [...] 5 longterm so far. Currently SNF in [facility]. 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 DME: Power wheelchair, manual wheelchair Income/BWC: [...] Orders & Meds Signed During This Encounter [facility] SERVICE REQUEST PM&R Urodynamics Patient Instructions -Continue PT/OT -Bowel care: schedule bowel care once/day (either after breakfast or dinner) - using suppository and manual stimulation over commode chair will be more helpful than over bed . - Continue skin care - Follow [facility] service consult( we requested today ) [...] Faisal Simeon DO documented in this encounter [facility] 05-22-2024 Note Formatting of this n ote might be different from the original. Called [facility] dispatch, new ETA is around 1900. [facility] 05-22-2024 Note Formatting of this n ote might be different from the original. Called [facility] dispatch, new ETA is around 1900. [facility] 05-22-2024 Miscellaneous Notes Called [facility] dispatch, new ETA is around 1900. CARE COORDINATION DAILY NOTE/UPDATE Discharge Plan: [facility] This TCC was tasked to follow this patient through the weekend assisting with discharge planning. Chart was reviewed. Met with patient at bedside to confirm if he would like to return to [facility]. Patient agreeable to return. Messaged attending and infectious disease to see if patient is able to discharge today. Discharge order placed. Scheduled discharge transportation in [employer], meat pickler time confirmed for 05/22 at 1600. Bedside [...] determined. Current discharge plan is return to [facility]. Will return skilled only if needed, otherwise he can return under his medicaid benefit per careport message. TCC to continue to follow. Return Referral placed to [facility] via Careport per TCC request. Await review and response regarding ability to accept. TCC notified. Care Managment Initial Assessment Date: 05/19/2024 Patient Name: Anmol Reynolds : 1960 Patient Information Source of Information: Patient Cognition/Language: WFL - Within Functional Limits Permission given to speak with patient transportation services representative/caregiver as indicated: Yes Confirmation of Payer [...] No (n/a) Confirmed with: Living Arrangements Facility[facility] Facility Name: [facility] Plan to Return: Yes Lives with: Alone, Other (Comment) (at [facility]) Support Systems: Children, Family members, Comments [...] ECF Discharge Planning Actions: Continue to follow, Snf Facility referral indicated [place] of choice: [place] of choice discussed (choice list not indicated; [...] ID consulted. Patient is a resident at [facility]. Patient confirmed plan for return. PRODUCTION TECH tasked to place return referral. Anticipate discharge [...] instructions Outcome: Progressing documented in this encounter [facility] 05-22-2024 Nurse Note Transport arranged for 1600. Belongings packed and paperwork finished. Carlos Montelongo update: 45 minutes. Elly Cormier RN [facility] 05-22-2024 Nurse Note Transport arranged for 1600. Belongings packed and paperwork finished. Carols Montelongo update: 45 minutes. Elly Cormier RN Santana catheter leaking since last night. Dr. Mahajan paged via secure chat. Catheter to be replaced. Patient informed me that they use a 18 slovak santana at the longterm. A 16 slovak was previously in. Urology cart was ordered, and a 18 slovak santana was placed with 500 mL output. Larger balloon, filled with 25 mL. No leaking. Will continue to monitor. Elly Cormier RN documented in this encounter [facility] 05-22-2024 Nurse Note Santana catheter leaking since last night. Dr. Mahajan paged via secure chat. Catheter to be replaced. Patient informed me that they use a 18 slovak santana at the longterm. A 16 slovak was previously in. Urology cart was ordered, and a 18 slovak santana was placed with 500 mL output. Larger balloon, filled with 25 mL. No leaking. Will continue to monitor. Elly Cormier RN [facility] 05-22-2024 Hospital course Narrative Images from [...] claudication Type 2 diabetes mellitus without complication ([facility]/HCC) (HCC) Urinary calculus, unspecified UTI (urinary tract [...] Complexity: follow up within 7-14 calendar days (03854) [] Severe Complexity: follow up within 7 calendar days (20110) FOLLOW UP TESTING, PENDING RESULTS OR REFERRALS [...] 05/22/2024, 1:52 PM documented in this encounter [facility] 05-22-2024 History of Present illness Narrative Hospitalist Progress Note 05/22/2024 Subjective: Admit Date: 05/17/2024 PCP: Tab Dupont Room#: W6-625/W6-169 A Brief Hospital course: Anmol is a [...] Secondary Emergency Contact: GAILSUMI Mobile Relation: Daughter Bradbarbie Katia Mahajan MD Division of Hospitalist Medicine Inpatient Medical Services/[facility] Images from the original note were not included. PHYSICAL THERAPY [facility] Initial Evaluation Name/MRN: Anmol Franco Gail ([id number]) Evaluation Date: 05/21/2024 Date of : 1960 Admission Date: 05/17/2024 8:25 PM Age: 63 y.o. [facility] A Discharge Recommendation: ECF without PT (Patient states he may be interested to going to a different ECF in [place]) Equipment Needed: No Assessment IMPRESSION: Patient is [...] DECOMPRESSION performed by Opal Vigil MD at [facility] OR ORTHOPEDIC SURGERY Right removal of hardware ankle US PLACE URETAL STENT PERC PRE-EXIST TRACT S&I (HISTORICAL) Bilateral 04/14/2024 Dr. Grimm/Bashir Admission Diagnosis: Patient Active Problem List Diagnosis Date Noted Hypertension 01/06/2017 Hyperglycemia 01/06/2017 Hip sprain 01/06/2017 Anxiety 01/06/2017 Positive blood cultures 05/17/2024 Calculus of ureter 05/06/2024 Bladder calculus 05/05/2024 Pressure injury of coccygeal region, stage 3 ([facility]) 04/20/2024 Septic shock ([facility]) 04/14/2024 Lumbar stenosis with neurogenic claudication 10/24/2020 Spinal stenosis of lumbar region with neurogenic claudication 10/24/2020 Nicotine use disorder 10/15/2020 Unspecified osteoarthritis, unspecified site 10/15/2020 Pilonidal cyst without abscess 10/15/2020 Diabetes mellitus without complication ([facility]) ([facility]) 10/15/2020 Abnormal finding on EKG [...] normal Social/Functional History Patient admitted from SNF. ([facility] [place]) Assistive Equipment: wheelchair - electric, hospital bed, [...] of Care supervision is transferred to a [facility] Therapy Services Physical Therapist. Goals and/or treatment plan was established in collaboration with patient/family/other representatives. Hospitalist Progress Note 05/21/2024 Subjective: Admit Date: 05/17/2024 PCP: Tab Dupont Room#: W6-625/W6-233 A Brief Hospital course: Anmol is a [...] 240 ml LABS: CBC: Recent Labs 05/19/2440605/20/2460505/21/24 033 WBC 5.4 5.5 5.8 RBC 3.96* 4.08* [...] 4 8 LIVER PROFILE: Recent Labs 05/19/2440605/20/24 0605/21/24 0336 AST 29 23 24 ALT 19 [...] Emergency Contact: SUMI REYNOLDS Mobile Relation: Daughter Bradbarbie Katia Mahajan MD Division of Hospitalist Medicine Inpatient Medical Services/[facility] Images from the original note were not included. [facility] Medical [facility] - Infectious Diseases NETWORK AND THREAT SUPPORT SPECIALIST Progress Note Subjective: Following for CoNS positive [...] blood cx- 1/1 CoNS ([facility]) 05/05- tissue from bladder- C parapsilosis, [...] if questions or concerns. Rosalinda Fox CNP [facility] - Infectious Diseases 10:11 AM 05/20/2024 Based on diagnoses and management, combination of acute and chronic problems, exacerbations and/or acuity, this visit should be considered to be of moderate complexity. Hospitalist Progress Note 05/20/2024 Subjective: Admit Date: 05/17/2024 PCP: Tab Dupont Room#: W6-007/W6-762 A Brief Hospital course: Anmol is a [...] Emergency Contact: SUMI REYNOLDS Mobile Relation: Daughter Bradbarbie Katia Mahajan MD Division of Hospitalist Medicine Inpatient Medical Services/[facility] Nutrition Assessment Type and Reason for Visit: [...] of note, pt was recently admitted to [facility] 04/14-04/20/2024 with proteus, providencia, and morganella [...] On: Kcal/kg Weight Used for Energy Requirements: [place] Weight for Energy Calculation (kg): 89 kg Total Energy Requirements (kcals/day): 9034-0447 kcal/day (25-30 kcal/kg) Weight Used for Protein Requirements: [place] Weight in Kg Used for Protein Requirements: [...] mostly appear stated, 180-200#, noted 04/19- 212#) [place] Body Weight (lbs) (Calculated): 196 lbs [place] Body Weight (Kg) (Calculated): 89 kg BMI [...] Chelita Dominguez RD Contact: Secure chat or *[phone] Images from the original note were not included. [facility] - Infectious Diseases NETWORK AND THREAT SUPPORT SPECIALIST Progress Note Subjective: Following for CoNS positive [...] blood cx- 1/1 CoNS ([facility]) 05/05- tissue from bladder- C parapsilosis, [...] plan d/w Dr. Melchor. Rosalinda Fox CNP [facility] - Infectious Diseases 3:08 PM 05/19/2024 Based on diagnoses and management, combination of acute and chronic problems, exacerbations and/or acuity, this visit should be considered to be of moderate complexity. Hospitalist Progress Note 05/19/2024 Subjective: Admit Date: 05/17/2024 PCP: AMBROSIO MONROY DO Room#: W6-904/W6-902 A Brief Hospital course: Anmol is a [...] Emergency Contact: SUMI REYNOLDS Mobile Relation: Daughter Bradbarbie Katia Mahajan MD Division of Hospitalist Medicine Inpatient Medical Services/[facility] Hospitalist Progress Note 05/18/2024 Subjective: Admit Date: [...] Secondary Emergency Contact: GAILSUMI Mobile Relation: Daughter Bradbarbie Katia Mahajan MD Division of Hospitalist Medicine Inpatient Medical Services/[facility] documented in this encounter [facility] 05-22-2024 Note Formatting of this n ote might be different from the original. CARE COORDINATION DAILY NOTE/UPDATE Discharge Plan: [facility] This TCC was tasked to follow this patient through the weekend assisting with discharge planning. Chart was reviewed. Met with patient at bedside to confirm if he would like to return to [facility]. Patient agreeable to return. Messaged attending and infectious disease to see if patient is able to discharge today. Discharge order placed. Scheduled discharge transportation in [employer], meat pickler time confirmed for 05/22 at 1600. Bedside nurse notified of transport and will update patient and family of plan Facility notified of transportation time and discharge documents including After Visit Summary, MAR, LABS, and Vitals were uploaded into careport for review. [facility] 05-22-2024 Note Formatting of this n ote might be different from the original. CARE COORDINATION DAILY NOTE/UPDATE Discharge Plan: [facility] This TCC was tasked to follow this patient through the weekend assisting with discharge planning. Chart was reviewed. Met with patient at bedside to confirm if he would like to [facility] [facility] agree[facility] to [facility]. Messaged attending and infectious disease to see if patient is able to discharge today. Discharge order placed. Scheduled discharge transportation in [employer], meat pickler time confirmed for 05/22 at 1600. Bedside nurse notified of transport and will update patient and family of plan Facility notified of transportation time and discharge documents including After Visit Summary, MAR, LABS, and Vitals were uploaded into careport for review. [facility] 05-22-2024 Plan of care note Problem: Knowledge [...] Assess Nutritional Intake Outcome: Adequate for Discharge T [facility] 05-22-2024 Plan of care note Problem: Safety Goal: Patient will be injury free during hospitalization Outcome: Progressing Problem: Safety Goal: I will remain free of falls Outcome: Progressing T [facility] 05-21-2024 Plan of care note Problem: [...] Interventions Goal: Assess Nutritional Intake Outcome: Progressing [facility] 05-20-2024 Plan of care note Problem: Knowledge Deficit Goal: Patient/family/caregiver demonstrates understanding of disease process, treatment plan, medications, and discharge instructions Outcome: Progressing Problem: Potential for Compromised Skin Integrity Goal: Skin Integrity is Maintained or Improved Outcome: Progressing Goal: Nutritional status is improving Outcome: Progressing [facility] 05-20-2024 Note Formatting of this n ote might be different from the original. Chart reviewed. ID following for CoNS postive BC and proteus UTI. Repeat BC pending. +iv cefepime, final course not yet determined. Current discharge plan is return to [facility]. Will return skilled only if needed, otherwise he can return under his medicaid benefit per careport message. TCC to continue to follow. [facility] 05-20-2024 Note Formatting of this n ote might be different from the original. Chart reviewed. ID following for CoNS postive BC and proteus UTI. Repeat BC pending. +iv cefepime, final course not yet determined. Current discharge plan is return to [facility]. Will return skilled only if needed, otherwise he can return under his medicaid benefit per careport message. TCC to continue to follow. [facility] 05-20-2024 Hospital Discharge instructions Elly Cormier [...] DECOMPRESSION performed by Opal Vigil MD at [facility] OR ORTHOPEDIC SURGERY Right removal of hardware [...] Total assistance Toileting Total assistance Feeding Independent Machine Adjuster Helper Total assistance Med Delivery yes Wound Care [...] Date: 05/17/2024 Discharging to Facility/ Agency Name: [facility] Address: [place] [address] Heel Stainer[employer] signature: ICIAN SECTION Name: Anmol Reynolds Prognosis: fair Condition at Discharge: stable Rehab Potential (if transferring to Rehab): fair Recommended Labs or Other Treatments After Discharge: cbc,cmp The individual is being admitted to a nursing facility directly from an [facility] or a unit of a [facility] that is not operated by or licensed by [facility] under section 5119.14 or 5160-3-15.1 5 The individual requires the level of services provided by a nursing facility for the condition for which he or she was treated in the hospital and, Physician Certification: I certify the above information and transfer of Anmol Reynolds is necessary for the continuing treatment of the diagnosis listed and that he requires assisted facility for less than 30 days. Update Admission H&P: No change in H&P PHYSICIAN SIGNATURE: documented in this encounter [facility] 05-19-2024 Note Formatting of this n ote might be different from the original. Return Referral placed to [facility] via Careport per TCC request. Await review and response regarding ability to accept. TCC notified. [facility] 05-19-2024 Note Formatting of this n ote might be different from the original. Return Referral placed to [facility] via Careport per TCC request. Await review and response regarding ability to accept. TCC notified. [facility] 05-19-2024 Note Formatting of this n ote might be different from the original. Care Managment Initial Assessment Date: 05/19/2024 Patient Name: Anmol Reynolds : 1960 Patient Information Source of Information: Patient Cognition/Language: WFL - Within Functional Limits Permission given to speak with patient transportation services representative/caregiver as indicated: Yes Confirmation of Payer with patient/family: Yes Payer Name: Medicare A/B; [place]: No Confirmation of Primary Care Physician: Confirmed PCP Name: Tab Nieves MD at facility Seen in last 2 years?: Yes Primary Caregiver: Other (Comment) (facility staff) If assistance needed, confirmed caregiver ready, willing and able to care for patient at discharge: No (n/a) Confirmed with: Living Arrangements Facility[facility] Facility Name: [facility] Plan to Return: Yes Lives with: Alone, Other (Comment) (at [facility]) Support Systems: Children, Family members, Comments [...] ECF Discharge Planning Actions: Continue to follow, Snf Facility referral indicated [place] of choice: [place] of choice discussed (choice list not indicated; [...] ID consulted. Patient is a resident at [facility] xfew years. Patient confirmed plan for return. PRODUCTION TECH tasked to place return referral. Anticipate discharge in 2-3 days pending medical stability. Patient will need transport. TCC to continue to follow. Vipin Peter RN T [employer] [employer] 05-19-2024 Note Formatting of this n ote might be different from the original. Care Managment Initial Assessment Date: 05/19/2024 Patient Name: Anmol Reynolds : 1960 Patient Information Source of Information: Patient Cognition/Language: WFL - Within Functional Limits Permission given to speak with patient transportation services representative/caregiver as indicated: Yes Confirmation of Payer with patient/family: Yes Payer Name: Medicare A/B; [place]: No Confirmation of Primary Care Physician: Confirmed PCP Name: Tab Nieves MD at facility Seen in last 2 years?: Yes Primary Caregiver: Other (Comment) (facility staff) If assistance needed, confirmed caregiver ready, willing and able to care for patient at discharge: No (n/a) Confirmed with: Living Arrangements Facility[facility] Facility Name: [facility] Plan to Return: Yes Lives with: Alone, Other (Comment) (at [facility]) Support Systems: Children, Family members, Comments [...] ECF Discharge Planning Actions: Continue to follow, Snf Facility referral indicated [place] of choice: [place] of choice discussed (choice list not indicated; [...] ID consulted. Patient is a resident at [facility] xfew years. Patient confirmed plan for return. PRODUCTION TECH tasked to place return referral. Anticipate discharge in 2-3 days pending medical stability. Patient will need transport. TCC to continue to follow. Vipin Peter RN T [facility] 05-18-2024 Plan of care note The patient is Moderately Stable - Low risk of patient condition declining or worsening The patient's goals for the shift include Pain control. The clinical goals for the shift include Patient to remain free of injury for the entirety of the shift. [facility] 05-18-2024 Plan of care note Problem: Knowledge Deficit Goal: Patient/family/caregiver demonstrates understanding of disease process, treatment plan, medications, and discharge instructions Outcome: Progressing T [facility] 05-18-2024 Emergency department Note Pt refusing BG check stating "I'm already eating." aware. Ella Zavala RN 05/18/24 1805 [facility] 05-18-2024 Emergency department Note Pt refusing [...] RN cleaned pt. Carmen Crews RN 05/18/24 2200 Pt transport has been requested Carmen Crews [...] DECOMPRESSION performed by Opal Vigil MD at [facility] OR ORTHOPEDIC SURGERY Right removal of hardware [...] Resource Strain: Low Risk (04/24/2023) Received from [facility], [facility] Overall Financial Resource Strain (CARDIA) [...] Homeless in the Last Year: No SCREENINGS [place] Coma Scale Best Eye Response: Spontaneous Best Verbal Response: Oriented Best Motor Response: Follows commands [place] Coma Scale Score: 15 PHYSICAL EXAM ED [...] Culture. Procedure Abnormality Status --------- ------ Complete Urinalysis[[id number]] Abnormal Final result Please view results for these tests on the individual orders. COMPLETE URINALYSIS WITH REFLEX TO CULTURE Narrative: The following orders were created for panel order Urinalysis complete with reflex to Culture. Procedure Abnormality Status --------- ------ Complete Urinalysis[[id number]] Please view results for these tests on the individual orders. COMPLETE URINALYSIS All other labs were within normal range or not returned as of this dictation. EMERGENCY DEPARTMENT COURSE and DIFFERENTIAL DIAGNOSIS/MDM: Vitals: Vitals: 05/17/244 05/17/246 BP: 123/84 118/68 Patient Position: Lying [...] Emergency Medicine Provider Terri Simeon PA-C 05/17/24 6363 Emergency Department Encounter [facility] EMERGENCY DEPT Patient: [...] provider for clarification.) Rodney Guerrero DO Acute [facility] Rodney Guerrero DO 05/18/24 0435 documented in this encounter [facility] 05-18-2024 Emergency department Note Pt refusing BG check at this time. aware. Ella Zavala RN 05/18/24 1237 [facility] 05-18-2024 Emergency department Note Pt refusing continuous IV fluids. MD janette Zavala RN 05/18/24 1051 [facility] 05-18-2024 Emergency department Note Pt moved onto hospital bed, denies any needs or complaints at this time. Ella Zavala RN 05/18/24 1026 [facility] 05-18-2024 Emergency department Note Pharmacy contacted regarding missing oxycodone. Ella Zavala RN 05/18/24 1052 [facility] 05-18-2024 Consult note Associated Order (s): IP CONSULT TO INFECTIOUS DISEASES Images from the original note were not included. [facility] - Infectious Diseases NETWORK AND THREAT SUPPORT SPECIALIST inpatient Consult Note Reason for Consult: Complicated [...] daptomycin with suppressive minocycline. Pt presented to [facility] ED on 05/17/2024 for evaluation of positive blood cultures. Pt was recently admitted to [facility] 04/14-04/20/2024 with proteus, providencia, and morganella [...] DECOMPRESSION performed by Opal Vigil MD at [facility] OR ORTHOPEDIC SURGERY Right removal of hardware [...] tablet 7.5 mg 7.5 mg Oral Nightly Nartea Concepcion MD naloxone (Narcan) injection 0.4 mg [...] Resource Strain: Low Risk (04/24/2023) Received from [facility], [facility] Overall Financial Resource Strain (CARDIA) [...] 05/16- blood cx- 1/1 GPC in clusters ([facility]) 05/05- tissue from bladder- C parapsilosis, [...] cultures from 05/06 Called micro lab at [place]--> blood cx + CoNS (only one set drawn). Hold off on vancomycin for now and follow-up repeat blood cx. If negative, likely CoNS is a contaminant. ID service will continue to follow; plan d/w Dr. Melchor. Rosalinda Fox CNP [facility] - Infectious Diseases 12:28 PM 05/18/2024 Total time 75 minutes on this day of encounter includes counseling, coordinating plan of care, record and documentation review before and after visit including documentation and time not explicitly included on EMR time stamp for accounting for open encounter. [facility] 05-18-2024 Consult note Associated Order (s): IP CONSULT TO INFECTIOUS DISEASES Images from the original note were not included. [facility] - Infectious Diseases NETWORK AND THREAT SUPPORT SPECIALIST inpatient Consult Note Reason for Consult: Complicated [...] daptomycin with suppressive minocycline. Pt presented to [facility] ED on 05/17/2024 for evaluation of positive blood cultures. Pt was recently admitted to [facility] 04/14-04/20/2024 with proteus, providencia, and morganella [...] DECOMPRESSION performed by Opal Vigil MD at [facility] OR ORTHOPEDIC SURGERY Right removal of hardware [...] Resource Strain: Low Risk (04/24/2023) Received from [facility], [facility] Overall Financial Resource Strain (CARDIA) [...] 05/16- blood cx- / GPC in clusters ([facility]) 05/05- tissue from bladder- C parapsilosis, [...] cultures from 05/06 Called micro lab at [place]--> blood cx + CoNS (only one set drawn). Hold off on vancomycin for now and follow-up repeat blood cx. If negative, likely CoNS is a contaminant. ID service will continue to follow; plan d/w Dr. Melchor. Rosalinda Fox CNP [facility] - Infectious Diseases 12:28 PM 05/18/2024 Total time 75 minutes on this day of encounter includes counseling, coordinating plan of care, record and documentation review before and after visit including documentation and time not explicitly included on EMR time stamp for accounting for open encounter. documented in this encounter [facility] 05-18-2024 Emergency department Note Pt refused BG check/meds at this time stating "I just want some sleep." Hospital bed ordered for pt. Meds deferred at this time. Ella Zavala RN 05/18/24 0822 [facility] 05-18-2024 Emergency department Note Pt had a bowel movement, this RN & another RN cleaned pt. Carmen Crews RN 05/18/24 0454 [facility] 05-18-2024 Emergency department Note Pt transport has been requested Carmen Crews RN 05/18/24 0433 [facility] 05-18-2024 Emergency department Note Pt is asleep, w/ unlabored breathing Carmen Crews RN 05/18/24 0155 Carmen Crews RN 05/18/24 0156 [facility] 05-17-2024 History and physical note Attending [...] DECOMPRESSION performed by Opal Vigil MD at [facility] OR ORTHOPEDIC SURGERY Right removal of hardware [...] Resource Strain: Low Risk (04/24/2023) Received from [facility], [facility] Overall Financial Resource Strain (CARDIA) [...] S2+, no m/r/g Abdomen: soft, nontender, BS+ CLIENT SERVICES VICE PRESIDENT: Awake and alert Ext: pulse 2+ DATA: [...] - DO NOT do CPR, intubation] [_] [DNR-BACKUP ENGINEER - Comfort care only] [_] DNR form [...] Heydi Concepcion MD Division of Hospitalist Medicine [facility] [employer] [facility] Work Phone: 05-17-2024 History and physical note [...] DECOMPRESSION performed by Opal Vigil MD at [facility] OR ORTHOPEDIC SURGERY Right removal of hardware [...] Resource Strain: Low Risk (04/24/2023) Received from [facility], [facility] Overall Financial Resource Strain (CARDIA) [...] S2+, no m/r/g Abdomen: soft, nontender, BS+ CLIENT SERVICES VICE PRESIDENT: Awake and alert Ext: pulse 2+ DATA: [...] - DO NOT do CPR, intubation] [_] [DNR-BACKUP ENGINEER - Comfort care only] [_] DNR form [...] Heydi Concepcion MD Division of Hospitalist Medicine [facility] documented in this encounter [facility] 05-17-2024 Physician Emergency department Note EMERGENCY DEPARTMENT ENCOUNTER Pt Name: Anmol Reynolds Birthdate 1960 Date of evaluation: 05/17/2024 ED Provider: Terir Simeon PA-C CHIEF COMPLAINT Chief Complaint Patient [...] DECOMPRESSION performed by Opal Vigil MD at [facility] OR ORTHOPEDIC SURGERY Right removal of hardware [...] Resource Strain: Low Risk (04/24/2023) Received from [facility], [facility] Overall Financial Resource Strain (CARDIA) [...] Homeless in the Last Year: No SCREENINGS [place] Coma Scale Best Eye Response: Spontaneous Best Verbal Response: Oriented Best Motor Response: Follows commands [place] Coma Scale Score: 15 PHYSICAL EXAM ED [...] Culture. Procedure Abnormality Status --------- ------ Complete Urinalysis[[id number]] Abnormal Final result Please view results for these tests on the individual orders. COMPLETE URINALYSIS WITH REFLEX TO CULTURE Narrative: The following orders were created for panel order Urinalysis complete with reflex to Culture. Procedure Abnormality Status --------- ------ Complete Urinalysis[[id number]] Please view results for these tests on the individual orders. COMPLETE URINALYSIS All other labs were within normal range or not returned as of this dictation. EMERGENCY DEPARTMENT COURSE and DIFFERENTIAL DIAGNOSIS/MDM: Vitals: Vitals: 05/17/244 05/17/246 BP: 123/84 118/68 Patient Position: Lying [...] Emergency Medicine Provider Terri Simeon PA-C 05/17/24 6157 [facility] 05-17-2024 Physician Emergency department Note Emergency Department Encounter [facility] EMERGENCY DEPT Patient: Anmol Reynolds : 1960 [...] [employer] Rodney Guerrero DO 05/18/24 0435 [employer] Phone: 05-15-2024 History of Present illness Narrative HISTORY OF PRESENT ILLNESS Inventory Administrator: not needed - patient preferred language is [place]i. HIPAA: Verbal permission granted from patient to discuss case, including protected health information, in front of family / friends in room at the time of the evaluation. Anmol Reynolds is a very pleasant 63 year old male here as new patient for a second opinion of MRI results. In 2019, pt had his first back surgery performed by [facility] which was an interbody fusion. 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 At that point, the hospital took the hardware out and did not replace it with the goal of treating the infection. 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 After the infection was treated, [facility] extended his fusion, decompressed the [...] Resource Strain: Low Risk (04/24/2023) Received from [facility] Overall Financial Resource Strain (CARDIA) Difficulty of Paying Living Expenses: Not hard at all Food Insecurity: No Food Insecurity (05/05/2024) Received from [facility] Hunger Vital Sign Worried About Running Out of Food in the Last Year: Never true Ran Out of Food in the Last Year: Never true Transportation Needs: No Transportation Needs (05/05/2024) Received from [facility] PRAPARE - Transportation Lack of Transportation (Medical): No Lack of Transportation (Non-Medical): No Intimate Partner Violence: Not At Risk (05/05/2024) Received from [facility] Humiliation, Afraid, Rape, and Kick questionnaire Fear [...] Dr. Otis Mejia. documented in this encounter [facility] 05-13-2024 Telephone encounter Note Call received back from nurse Packer who states blooc cultures were missed, but she will have them done on Thursday when the lab come back to the facility. [facility] 05-13-2024 Miscellaneous Notes Call received back from nurse Birdie who states blooc cultures were missed, but she will have them done on Thursday when the lab come back to the facility. Called and spoke to nurse Packer at [facility] to obtain blood culture results that were ordered to be done on 05/06/24. She did state she cannot tell if they were done, she will call their lab and have the results faxed to us. If they were not done, she will have them obtained. I did ask that she please let us know what the outcome it. documented in this encounter [facility] 05-13-2024 Telephone encounter Note Called and spoke to nurse Birdie at [facility] to obtain blood culture results that were ordered to be done on 05/06/24. She did state she cannot tell if they were done, she will call their lab and have the results faxed to us. If they were not done, she will have them obtained. I did ask that she please let us know what the outcome it. [facility] 05-10-2024 Telephone encounter Note Pt calling requesting provider to follow up regarding MRI. Pt was unable to provide telephone, address or SSN. No information was provided at this time. [facility] 05-10-2024 Miscellaneous Notes Pt calling requesting provider to follow up regarding MRI. Pt was unable to provide telephone, address or SSN. No information was provided at this time. documented in this encounter [facility] 05-06-2024 Nurse Note Patient requested discharge transportation be provided by his brother, who drives a wheelchair accessible van. Spoke with nurse at [facility] who was aware that patient was returning this evening and was agreeable to patient being transported by private vehicle. YASHIRA Hernandez'alonso Bedside RN called report. Patient transferred via [place]rett lift to personal wheelchair and was escorted down to main entrance where his brother picked him up in van [facility] 05-06-2024 Nurse Note Patient requested discharge transportation be provided by his brother, who drives a wheelchair accessible van. Spoke with nurse at [facility] who was aware that patient was returning this evening and was agreeable to patient being transported by private vehicle. IV Dc'd. Bedside RN called report. Patient transferred via [place]rett lift to personal wheelchair and was escorted down to main entrance where his brother picked him up in van documented in this encounter [facility] 05-06-2024 Note Formatting of this n ote is different from the original. Images from the original note were not included. Referral placed to [facility] Await review and response regarding ability to accept. TCC notified. Electronically signed by [facility] Juana Villagomezh [facility] 05-06-2024 Note Formatting of this n ote is different from the original. Images from the original note were not included. Referral placed to [facility] Await review and response regarding ability to accept. TCC notified. Electronically signed by [facility] Juana Edmonds [facility] 05-06-2024 Miscellaneous Notes Images from the original note were not included. Referral placed to [facility] Await review and response regarding ability to accept. TCC notified. Electronically signed by [facility] Juana Edmonds Addendum to earlier note: Pt to be discharged (returned) back to [facility]. Bedside RN aware, SW aware and will plan transport. Referral placed to [facility] via Careport per TCC request. Await review and response regarding ability to accept. TCC notified. Care Managment Initial Assessment Date: 05/06/2024 Patient Name: Anmol Reynolds : 1960 Patient Information Source of Information: Patient Cognition/Language: WFL - Within Functional Limits Permission given to speak with patient transportation services representative/caregiver as indicated: Confirmation of Payer with patient/family: Yes Payer Name: Medicare A/B [place]: No Confirmation of Primary Care Physician: Confirmed PCP Name: Ambrosio Monroy, Seen in last 2 years?: Yes Primary Caregiver: Self If assistance needed, confirmed caregiver ready, willing and able to care for patient at discharge: Confirmed with: Living Arrangements Current Residence: Number of Floors Number of Entry Steps: Bed/Bath Levels: Facility: Nursing Facility Skilled Facility Name: [facility] Plan to Return: Yes Lives with: Other (Comment) ([facility]) Support Systems: Parent, Family members, Friends/neighbors Activities [...] Assistance Provider Meal Prep Assistance Provider Name: [facility] Laundry/Cleaning: Assistance Provider Laundry/Cleaning Assistance Provider Name: [facility] Finances/Bill Paying: Independent Communication: Independent Types of Care Services/Equipment Utilized Care Services: Dialysis Type: Durable Medical Equipment: Wheelchair (standard or power), Hospital Bed, Other (Comment) DME Provider: Santana catheter (chronic) Patient's Goal/Discharge Plan Patient expects to be discharged to: Return to [facility] Discharge Planning Actions: Snf Facility referral indicated [place] of choice: [place] discussed Patient's Choice Rights and [...] for kidney stones bilaterally. Pt is from [facility] and is agreeable to return. Pt states his mother is across the [place] from him. He has a chronic santana and R picc in place. On iv ceftriaxone. Regular diet. Pt had PT eval ordered. Met with pt at bedside; explained role of tcc. Pt wanting to return to [facility] Has chronic santana catheter. He has an electric w/c. Anticipate discharge (return) to [facility] today if medically stable. Anel [...] Ebl: Drains 6fr X 24cmJJ Santana 16 Algerian Santana catheter Specimen: Bladder calculus for stone [...] and the patient wishes to proceed. PROCEDURE: nAmol Reynolds Was brought to the operating room. [...] MAR for meds. documented in this encounter [facility] 05-06-2024 Hospital Discharge instructions Bianca Rodgers [...] Unit/Room#: H-5133/H-5133 A Discharging Unit Phone Number: [phone] Emergency Contact: Extended Emergency Contact Information Primary [...] DECOMPRESSION performed by Opal Vigil MD at [facility] OR ORTHOPEDIC SURGERY Right removal of hardware [...] assistance Toileting Total assistance Feeding Minimal assistance Machine Adjuster Helper Minimal assistance Med Delivery yes Wound Care [...] are sent with patient): wheelchair RN SIGNATURE: {E-signature:31362} CASE MANAGEMENT/SOCIAL WORK SECTION Inpatient Status Date: Discharging to Facility/ Agency Name: Address: Phone: Fax: Dialysis Facility (if applicable) Name: Address: Dialysis Schedule: Phone: Fax: [employer] signature: {E-signature:66582} PHYSICIAN SECTION Name: Anmol Reynolds Prognosis: {Rehab Prognosis:34086} Condition at Discharge: {Patient Condition:01587} Rehab Potential (if transferring to Rehab): {Rehab Prognosis:00329} Recommended Labs or Other Treatments After Discharge: The individual is being admitted to a nursing facility directly from an [facility] or a unit of a hospital that is not operated by or licensed by [facility] under section 5119.14 or 5160-3-15.1 5 The individual requires the level of services provided by a nursing facility for the condition for which he or she was treated in the hospital and, Physician Certification: I certify the above information and transfer of Anmol Reynolds is necessary for the continuing treatment of the diagnosis listed and that he requires {ADELINE Level of Care:76312} for {greater less than:76840} 30 days. Update Admission H&P: {ADELINE Changes in H&P:61792} PHYSICIAN SIGNATURE: {E-signature:07417} The following attachments cannot be sent through Care Everywhere.Laser Lithotripsy for Kidney Stones Discharge Instructions (Bah[place]i)How to Care for Your Santana Catheter ([place]i)documented in this encounter [facility] 05-06-2024 Note Formatting of this n ote might be different from the original. Addendum to earlier note: Pt to be discharged (returned) back to [facility]. Bedside RN aware, SW aware and will plan transport. [facility] 05-06-2024 Note Formatting of this n ote might be different from the original. Addendum to earlier note: Pt to be discharged (returned) back to [facility]. Bedside RN aware, SW aware and will plan transport. [facility] 05-06-2024 Hospital course Narrative Images from the original note were not included. 48 Hour Discharge Summary Note Patient ID: Anmol Reynolds [id number] 63 y.o. 1960 Admit date: 05/05/2024 Discharge [...] MD. PGY-2 Urology documented in this encounter [facility] 05-06-2024 Note Formatting of this n ote might be different from the original. Referral placed to [facility] via [facility] per TCC request. Await review and response regarding ability to accept. TCC notified. [facility] 05-06-2024 Note Formatting of this n ote might be different from the original. Referral placed to SNF Return - [facility] via [facility] per TCC request. Await review and response regarding ability to accept. TCC notified. [facility] 05-06-2024 Note Formatting of this n ote might be different from the original. Care Managment Initial Assessment Date: 05/06/2024 Patient Name: Anmol Reynolds : 1960 Patient Information Source of Information: Patient Cognition/Language: WFL - Within Functional Limits Permission given to speak with patient transportation services representative/caregiver as indicated: Confirmation of Payer with [...] Levels: Facility: Nursing Facility Skilled Facility Name: [facility] Plan to Return: Yes Lives with: [...] Assistance Provider Meal Prep Assistance Provider Name: [facility] Laundry/Cleaning: Assistance Provider Laundry/Cleaning Assistance Provider Name: [facility] Finances/Bill Paying: Independent Communication: Independent Types of Care Services/Equipment Utilized Care Services: Dialysis Type: Durable Medical Equipment: Wheelchair (standard or power), Hospital Bed, Other (Comment) DME Provider: Santana catheter (chronic) Patient's Goal/Discharge Plan Patient expects to be discharged to: Return to [facility] Discharge Planning Actions: Snf Facility referral indicated [place] of choice[place] discussed Patient's Choice Rights and [...] for kidney stones bilaterally. Pt is from [facility] and is agreeable to return. Pt states his mother is [place]. He has a chronic santana and R picc in place. On iv ceftriaxone. Regular diet. Pt had PT eval ordered. Met with pt at bedside; explained role of tcc. Pt wanting to return to [facility] Has chronic santana catheter. He has an electric w/c. Anticipate discharge (return) to [facility] today if medically stable. Anel Lima RN T [facility] 05-06-2024 Note Formatting of this n ote might be different from the original. Care Managment Initial Assessment Date: 05/06/2024 Patient Name: Anmol Reynolds : 1960 Patient Information Source of Information: Patient Cognition/Language: WFL - Within Functional Limits Permission given to speak with patient transportation services representative/caregiver as indicated: Confirmation of Payer with patient/family: Yes Payer Name: Medicare A/B [place]: No Confirmation of Primary Care Physician: Confirmed PCP Name: Ambrosio Monroy, Seen in last 2 years?: Yes Primary Caregiver: Self If assistance needed, confirmed caregiver ready, willing and able to care for patient at discharge: Confirmed with: Living Arrangements Current Residence: Number of Floors Number of Entry Steps: Bed/Bath Levels: Facility: Nursing Facility Skilled Facility Name: [facility] Plan to Return: Yes Lives with: Other (Comment) ([facility]) Support Systems: Parent, Family members, [...] Laundry/Cleaning: Assistance Provider Laundry/Cleaning Assistance Provider Name: [facility] Finances/Bill Paying: Independent Communication: Independent Types of Care Services/Equipment Utilized Care Services: Dialysis Type: Durable Medical Equipment: Wheelchair (standard or power), Hospital Bed, Other (Comment) DME Provider: Santana catheter (chronic) Patient's Goal/Discharge Plan Patient expects to be discharged to: Return to [facility] Discharge Planning Actions: Snf Facility referral indicated [place] of choice: [place] choice discussed Patient's Choice Rights and [...] for kidney stones bilaterally. Pt is from [facility] and is agreeable to return. Pt states his mother is [place]. He has a chronic santana and R picc in place. On iv ceftriaxone. Regular diet. Pt had PT eval ordered. Met with pt at bedside; explained role of tcc. Pt wanting to return to [facility] Has chronic santana catheter. He has an electric w/c. Anticipate discharge (return) to [facility] today if medically stable. Anel Lima RN T [facility] 05-06-2024 History of Present illness Narrative [...] MD PGY-2 Urology documented in this encounter [facility] 05-05-2024 Plan of care note The [...] Recommendations to address these barriers include none. [facility] 05-05-2024 Note Formatting of this n ote might be different from the original. Belongings returned to patient bedside. Meal tray ordered [facility] 05-05-2024 Note Formatting of this n ote might be different from the original. Belongings returned to patient bedside. Meal tray ordered [facility] 05-05-2024 Note Formatting of this n [...] Ebl: Drains 6fr X 24cmJJ Santana 16 Algerian Santana catheter Specimen: Bladder calculus for stone [...] removal. Dashawn Grimm MD 05/06/24 5:11 PM [facility] 05-05-2024 Note Formatting of this n ote [...] Ebl: Drains 6fr X 24cmJJ Santana 16 Algerian Santana catheter Specimen: Bladder calculus for stone [...] removal. Dashawn Grimm MD 05/06/24 5:11 PM [facility] 05-05-2024 Attending History and physical note [...] Note - Radha Lucas APRN - NETWORK AND THREAT SUPPORT SPECIALIST - 04/27/2024 2:00 PM EDT Images from the original note were not included. Comprehensive Pre Surgical History and Physical ? Name: Anmol Reynolds : 1960 (Age-63 y.o.) Date of Service: Pt seen/examined on 04/27/2024 Procedure Information Date/Time: 05/05/24 1230 Procedures: CYSTOSCOPY (Urethra) - 120 MINS POSSIBLE CYSTOLITHOLAPAXY (Urethra) BILATERAL URETEROSCOPY ASTRID LASER LITHOTRIPSY (Bilateral: Urethra) BILATERAL URETERAL STENT CHANGE (Bilateral: Urethra) Location: [facility] OR [address] [place] [address] Operating Room Surgeons: Dashawn Grimm MD Chief [...] days. Denies prior problems with anesthesia. No [facility] problems with anesthesia Denies c/o chest pain, dizziness, sob, syncope, palpitations, tachycardia, cough, wheezing, nvd, fever or chills Wheelchair bound (paraplegia)- No chest pain or sob with normal activity(upper body activity) Do you have a history of chronic opioid use? oxycodone per pain management ? Denies history of DE, CAD, CHF, CVA, seizures, asthma/copd, WEST, PE/DVT [...] date: Other reduced mobility No date: Paraplegia ([facility]) No date: Sciatica No date: Spinal stenosis of lumbar region with neurogenic claudication No date: Type 2 diabetes mellitus without complication (CMS/HCC) ([facility]) No date: Urinary calculus, unspecified [...] DECOMPRESSION performed by Opal Vigil MD at [facility] OR No date: ORTHOPEDIC SURGERY; Right Comment: [...] QT Interval 426 QTC Interval 477 P Randolph 10 QRS Randolph 28 T Wave Randolph 28 RI Interval 159 Impression Sinus rhythm Electronically Signed On 04-20-2024 15:22:00 EDT by Jax Rapid Pathogen Screening ECHO and EF:None on file METS __Wheelchair bound (paraplegia)- No chest pain or sob with normal activity (upper body activities) Electronically signed by: Radha Lucas APRN - NETWORK AND THREAT SUPPORT SPECIALIST Date: 04/27/2024 at 3:18 PM [employer] Phone: 05-05-2024 History and physical note Images [...] Note - Radha Lucas APRN - NETWORK AND THREAT SUPPORT SPECIALIST - 04/27/2024 2:00 PM EDT Images from the original note were not included. Comprehensive Pre Surgical History and Physical ? Name: Anmol Reynolds : 1960 (Age-63 y.o.) Date of Service: Pt seen/examined on 04/27/2024 Procedure Information Date/Time: 05/05/24 1230 Procedures: CYSTOSCOPY (Urethra) - 120 MINS POSSIBLE CYSTOLITHOLAPAXY (Urethra) BILATERAL URETEROSCOPY ASTRID LASER LITHOTRIPSY (Bilateral: Urethra) BILATERAL URETERAL STENT CHANGE (Bilateral: Urethra) Location: [facility] [address] [place] [address] Operating Room Surgeons: Dashawn Grimm MD Chief [...] days. Denies prior problems with anesthesia. No [facility] problems with anesthesia Denies c/o chest pain, dizziness, sob, syncope, palpitations, tachycardia, cough, wheezing, nvd, fever or chills Wheelchair bound (paraplegia)- No chest pain or sob with normal activity(upper body activity) Do you have a history of chronic opioid use? oxycodone per pain management ? Denies history of DE, CAD, CHF, CVA, seizures, asthma/copd, WEST, PE/DVT [...] date: Type 2 diabetes mellitus without complication ([facility]) ([facility]) No date: Urinary calculus, unspecified [...] DECOMPRESSION performed by Opal Vigil MD at [facility] OR No date: ORTHOPEDIC SURGERY; Right Comment: [...] QT Interval 426 QTC Interval 477 P Randolph 10 QRS Randolph 28 T Wave Randolph 28 RI Interval 159 Impression Sinus rhythm Electronically Signed On 04-20-2024 15:22:00 EDT by Jax Wiggins ECHO and EF:None on file METS __Wheelchair bound (paraplegia)- No chest pain or sob with normal activity (upper body activities) Electronically signed by: Radha Lucas APRN - SHARIFA Date: 04/27/2024 at 3:18 PM documented in this encounter [facility] 05-05-2024 Note Formatting of this n ote might be different from the original. Spoke with the nurse Aguilar from the facility pt came from. The nurse confirmed that pt did not have anything to eat after midnight and only sips of water with morning meds. See MAR for meds. [facility] 05-05-2024 Note Formatting of this n ote might be different from the original. Spoke with the nurse Lauren from the facility pt came from. The nurse confirmed that pt did not have anything to eat after midnight and only sips of water with morning meds. See MAR for meds. [facility] 05-04-2024 Telephone encounter Note R/S patient for 06/14 at 8:30a, [facility] 05-04-2024 Miscellaneous Notes R/S patient for 06/14 at 8:30a, also [facility] Name of Caller: Doug Contact Reason for Appointment: Reschedule 04/21/24 appointment Office Name: Interventional Pain Management documented in this encounter [facility] 05-04-2024 Telephone encounter Note Name of Caller: Doug Contact Reason for Appointment: Reschedule 04/21/24 appointment Office Name: Interventional Pain Management [facility] [employer] 04-27-2024 Telephone encounter Note Call placed to pt. No answer no VM set up. No return calls from [employer]. Pt is scheduled for PAT today. [employer] 04-27-2024 Miscellaneous Notes Call placed to pt. No answer no VM set up. No return calls from [employer]. Pt is scheduled for PAT today. Call placed to pt to advise of SX information. No answer, unable to LVM. If pt calls back into office please advise of below information or transfer to me. Doctor: JORGE PAT (arrive 15 min early): 04/27 @2pm [facility] PAT instructions: Please bring photo ID, insurance card, list of all current medications Surgery: 05/05 @12:30 [facility] Surgery arrival time: 10:30am Surgery instructions: Nothing [...] DIAGNOSIS: Bladder calculus, bilateral ureteral stones FACILITY: [facility] or [facility] DETAILS: OUTPT ANESTHESIA: GENERAL TIME REQUESTED: 2hr DATE REQUESTED: Must be minimum of 2 weeks from today due to infection SURGERY ORDERS: Already placed by Joe Hammer NP on 04/15/2024 POST OP FOLLOW UP: cysto stent removal 2 wks documented in this encounter [facility] 04-26-2024 Telephone encounter Note Called pt and discussed his MRI L spine results. He has [facility] rehab follow up scheduled. Recommended Spine Surgery opinion. No change in clinical condition from last visit. Vaishali Pierre DO [facility] 04-26-2024 Miscellaneous Notes Called pt and discussed his MRI L spine results. He has [facility] rehab follow up scheduled. Recommended Spine Surgery opinion. No change in clinical condition from last visit. Vaishali Pierre DO Called pt again. Staff at the [facility] stated he was unable to come [...] and spine surgery. Vaishali Pierre DO Telephoned [facility] pt at dinner and medical receptionist assistant states she cannot pull pt away from [...] to the above findings.He does not have [employer] set up to message. Vaishali Pierre DO documented in this encounter [facility] 04-26-2024 Telephone encounter Note Called pt again. Staff at the SNF stated he was unable to come to the phone and asked for call back later in the day. Vaishali Pierre DO [facility] 04-25-2024 Telephone encounter Note Called pt and reached staff, but he was unable to come to the phone. Will try again tomorrow. Vaishali Pierre DO [facility] 04-25-2024 Telephone encounter Note Call placed to pt to advise of SX information. No answer, unable to LVM. If pt calls back into office please advise of below information or transfer to me. Doctor: JORGE OLIVA (arrive 15 min early): 04/27 @2pm [facility] PAT instructions: Please bring photo ID, insurance card, list of all current medications Surgery: 05/05 @12:30 [facility] Surgery arrival time: 10:30am Surgery instructions: Nothing to eat after midnight. Can have clear liquids black coffee (no cream or dairy), tea, water, Sprite, apple juice, Gatorade (no reds or purples) up until arrival time. Medication instructions: Hold Aspirin, fish oil and over the counter vitamins 3 days prior to surgery [facility] 04-25-2024 Miscellaneous Notes Call placed to pt to advise of SX information. No answer, unable to LVM. If pt calls back into office please advise of below information or transfer to me. Doctor: JORGE OLIVA (arrive 15 min early): 04/27 @2pm [facility] PAT instructions: Please bring photo ID, insurance card, list of all current medications Surgery: 05/05 @12:30 [facility] Surgery arrival time: 10:30am Surgery instructions: Nothing [...] DIAGNOSIS: Bladder calculus, bilateral ureteral stones FACILITY: [facility] or [facility] DETAILS: OUTPT ANESTHESIA: GENERAL TIME REQUESTED: 2hr DATE REQUESTED: Must be minimum of 2 weeks from today due to infection SURGERY ORDERS: Already placed by Joe Hammer NP on 04/15/2024 POST OP FOLLOW UP: cysto stent removal 2 wks documented in this encounter [facility] 04-21-2024 Telephone encounter Note Call placed to pt but no answer at this time. Pt does not have VM set up so unable to LVM. No MyChart set up. Will continue to reach out to pt. [facility] 04-20-2024 Miscellaneous Notes Dc to [facility] this evening at 6:30. [employer] messaged the facility with dc time and left a voicemail message for patients brother with dc time and arrangements. Re faxed opat to [phone]. Discharge med list transmitted to return back to [facility] via [employer] per TCC request. Images from the original note were not included. Care Management Progress Note Chart reviewed. Patient remains on . Discussed patient in rounds. Noted discharge order. Noted patient received PICC placement today. Faxed opat for Ertapenem IV to [phone]. PRODUCTION TECH tasked to send final updates to [facility]. SW tasked to arrange transportation today when ready. Patient will need covid test resulted before leaving hospital. TCC section of ADELINE completed. DC plan: return to [facility], no auth needed. Bed hold. Discharge Milestones and Delays Expected date/time: 04/20/2024 Medically ready since: 04/20/2024 Disposition: Snf Facility Transport status: No current request Discharge Milestones Place discharge order Complete med reconciliation Case mgmt discharge readiness Clinical Stability Diagnostic Workup Imaging Results Patient Education Complete Expected Discharge History Expected Date/Time Set By Reviewed At 04/20/2024 Otis Mckenzie DO 04/20/2024 11:42 AM 04/18- From [facility]. 04/20- Getting a picc today for IV antibiotics, [facility]." 04/20/2024 LINDSAY Gallardo 04/20/2024 9:34 AM 04/20/2024 LINDSAY Gallardo 04/19/2024 9:13 AM 04/18- From [facility]." 04/20/2024 Chrissie Rodrigues RN 04/19/2024 7:55 [...] Sent updated notes to return back to [facility] per [facility] request. Await review and response regarding ability [...] chronic santana in place. Pt is from [facility]. Tasked [facility] to send updated clinicals to facility. Pt is a bedhold, no auth required to return. Will however need a covid test before returning to facility. Discharge plan is [facility] when medically ready. manager nuclear to follow and assist as needed. Discharge [...] Source of Information: Patient Name/Contact Information: Ronald Gail [phone] brother and daughter Sumi Given Cognition/Language: WFL - Within Functional Limits Permission given to speak with patient transportation services representative/caregiver as indicated: Yes Confirmation of Payer with patient/family: Yes Payer Name: medicare and medicaid [place]: No Confirmation of Primary Care Physician: Confirmed PCP Name: house doctor at [facility]-Dr. Dupont Seen in last 2 years?: Yes Primary Caregiver: Other (Comment) If assistance needed, confirmed caregiver ready, willing and able to care for patient at discharge: Yes Confirmed with: staff at [facility] Living Arrangements Current Residence: (ecf) Number of Floors 1 Number of Entry Steps: (level) Bed/Bath Levels: Both first floor Facility: [facility] Facility Name: [facility] Plan to Return: Yes Lives with: (ecf) Support Systems: Family members, Comments (Other) (facility) Activities of Daily Living Ambulation: Total Care (everett lift to wc) Bathing/Dressing: Total Care Elimination/Continence/Toileting: Total Care Feeding: Assistance Who Assists with Activities of Daily Living: longterm staff Instrumental Activities of Daily Living Prescription Coverage: Yes Pharmacy Used: [facility] Medication Management: Medication dispenser Who assists with medication securing and setup?: [facility] Transportation/Shopping: Assistance Provider Transportation/Shopping Assistance Provider Name: [...] expects to be discharged to: return to [facility] Discharge Planning Actions: Continue to follow Patient's Choice Rights and [employer] and Collaborative Relationships Disclosed as Indicated for Post-Acute Care: Yes Interdisciplinary Team Engagement: Social Work Referral for: Additional Information: Inpatient status from [facility] with sepsis. Urology consulted due to [...] of paraplegia and states has been at [facility] for a year and wishes to return upon discharge. Tasked PRODUCTION TECH to place referral in [facility]. He is everett lift to at facility. Will need to monitor for antibiotic needs upon discharge. Did call facility to obtain daughter's phone number for patient and updated primary care nurse with this information. .. Isabel Kirby RN Referral placed to return back to [facility] via [facility] per TCC request. Await review and response regarding ability to accept. TCC notified. Images from the original note were not included. 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 Findings: He is a 63-year-old paraplegic longterm resident with a chronic Santana catheter. He [...] 6 x 26 stent was passed. 22 Algerian coud catheter was placed to straight drain. INDICATIONS: Anmol Reynolds , is a 63 y.o. male who presents with urosepsis bilateral ureteral obstruction. Anmol Reynolds presents for cystoscopy stent placement. The risks benefits and alternatives were explained and the patient wishes to proceed. PROCEDURE: Amnol Reynolds Was brought to the operating room. [...] bladder. The bladder was left full. 22 Algerian coud catheter was placed into the bladder. He was awakened and transferred to the recovery room. ICU was consulted for admission due to the hypotension and need for pressors during the case as well as the lactic acidosis. Dashawn Grimm MD 04/14/24 10:49 PM documented in this encounter [facility] 04-20-2024 Hospital course Narrative Images from [...] CONSULT TO INFECTIOUS DISEASES IP CONSULT TO CHRONIC DISEASE MANAGER Discharge Instructions: Diet: Adult diet Regular; 5 carb choices (75 gm/meal) Activity: as tolerated Recommended Outpatient Tests: Disposition: Patient discharged in stable condition to SNF LABS: CBC: Recent Labs 04/18/2471104/19/2442704/20/24358 WBC 8.4 9.2 6.4 RBC 3.95* 3.79* 3.70* HGB 12.1* 11.6* 11.3* HCT 36.6* 35.0* 34.8* MCV 92.7 92.3 94.1 RDW 15.0 14.8 14.8 PLT 79* 88* 121* BMP: Recent Labs 04/18/24 0704/19/2442704/20/24358 NA 140 138 138 K 3.1* 3.5 [...] Complexity: follow up within 7-14 calendar days (69229) [x] Severe Complexity: follow up within 7 calendar days (87029) Follow up Testing, Pending results or Referrals [...] frame. Signed: Otis Mckenzie DO [facility] 04/20/2024, 11:42 AM Total time Spent on Discharge: 32 minutes documented in this encounter [facility] 04-20-2024 Hospital Discharge instructions Faby Maxwlel RN - 04/20/2024 11:42 AM EDT Images [...] DECOMPRESSION performed by Opal Vigil MD at [facility] OR ORTHOPEDIC SURGERY US PLACE URETAL STENT [...] assistance Toileting Total assistance Feeding Minimal assistance Machine Adjuster Helper Minimal assistance Med Delivery yes Wound Care Documentation and Therapy: Wound/Incision 04/14/24 Pressure Injury Sacrum (Active) Site Assessment Unable to assess 04/19/242039 [place]-Wound Assessment Clean;Dry;Intact 04/19/242039 Drainage Description Red 04/19/24 1651 Odor None 04/18/24 0328 Drainage Amount Scant 04/19/24 1651 Treatments Cleansed;Zinc - oxide paste 04/19/24 1651 Primary Dressing Foam 04/19/24 165 Dressing Status [...] Date: 04-14-2024 Discharging to Facility/ Agency Name: [facility] Address: [address] [place] [address] Dialysis Facility (if applicable) Name: Address: Dialysis Schedule: Phone: Fax: Heel Stainer[employer] signature: {E-signature:12630} ICIAN SECTION Name: Anmol Reynolds Prognosis: {Rehab Prognosis:45215} Condition at Discharge: {Patient Condition:81439} Rehab Potential (if transferring to Rehab): excellent Recommended Labs or Other Treatments After Discharge: blood cultures to be obtained on 05/06/24 The individual is being admitted to a nursing facility directly from an [facility] or a unit of a [facility] that is not operated by or licensed by [facility] under section 5119.14 or 5160-3-15.1 5 The individual requires the level of services provided by a nursing facility for the condition for which he or she was treated in the hospital and, Physician Certification: I certify the above information and transfer of Anmol Reynolds is necessary for the continuing treatment of the diagnosis listed and that he requires assisted facility for less than 30 days. Update Admission H&P: No change in H&P PHYSICIAN SIGNATURE: documented in this encounter [facility] 04-20-2024 Nurse Note Patient tolerated procedure well. Transferring back to nursing floor. Patient arrived from [facility], AMOL Enriquez was in to speak with the patient regarding PICC, consent was obtained. Patient was placed supine on exam table prepped and draped in sterile fashion. Telemetry monitors placed, vitals being monitored. documented in this encounter [facility] 04-19-2024 History of Present illness Narrative [...] Fluid Accumulation: Mild Extremities (+2 kenroy LE) Metaphysics Teacher Strength: Not Performed Nutrition Assessment: per [...] On: Kcal/kg Weight Used for Energy Requirements: [place] Weight for Energy Calculation (kg): 82 kg Total Energy Requirements (kcals/day): 5056-9745 (28-30) Weight Used for Protein Requirements: [place] Weight in Kg Used for Protein Requirements: [...] (183 lb) % Weight Change (Calculated): 12.2 [place] Body Weight (lbs) (Calculated): 196 lbs [place] Body Weight (Kg) (Calculated): 89 kg % [place] Body Weight (Calculated): 104.7 % BMI (kg/m2) (Calculated): 26.5 Weight Adjustment For: Paraplegia % Weight Adjustment: 7.5 - Paraplegia Total Adjusted Percentage (Calculated): 7.5 Adjusted [place] Body Weight (lbs) (Calculated): 181.3 lbs Adjusted [place] Body Weight (kg) (Calculated): 82.41 kg Adjusted [...] Continue current diet Zonia Dumont RD Contact: *[phone] or via Secure Chat Images from the original note were not included. [facility] - Infectious Diseases Attending Progress [...] person, place, and time. Labs: Recent Labs 04/17/242 04/18/2471104/19/24 0428 NA 135 140 138 K 3.2* 3.1* 3.5 CL 107 105 107 CO2 23 27 26 BUN 23* 15 14 CREATININE 0.58* 0.51* 0.44* GLUCOSE 144* 74 153* CALCIUM 7.9* 7.8* 7.9* PROT 5.6* 6.0* 6.0* BILITOT 0.7 0.8 0.6 ALKPHOS 128* 123 119 AST 22 18 19 ALT 22 18 16 Recent Labs 04/17/2434104/18/2471104/19/24427 WBC 7.9 8.4 9.2 HGB 11.5* 12.1* 11.6* HCT 35.4* 36.6* 35.0* PLT 77* 79* 88* LYMPHOPCT 16.8 13* 13* MONOPCT 5.5 8 8 BASOPCT 0.1 -- 1 NEUTROABS 6.0 -- -- Micro: No results for input(s): "COVID19" in the last 72 hours. 04/16/2024 0654 04/16/2024 1101 Blood culture Site #1 - Assess for effectiveness of treatment [[id number]] Blood, Venous Preliminary result Component Value Blood Culture Blood culture incubation started P 04/16/2024 0654 04/16/2024 1101 Blood culture Site #2 - Assess for effectiveness of treatment [[id number]] Blood, Venous Preliminary result Component Value Blood Culture Blood culture incubation started P 04/15/2024 1713 04/15/2024 2208 MRSA by PCR [[id number]] (Abnormal) ESwab from Nasal Final result Component Value Staphylococcus aureus Detected Abnormal mecA gene Not Detected 04/15/2024 0103 04/16/2024 1135 Urine culture [[id number]] (Abnormal) Urine, Clean Catch Preliminary result Component Value Urine Culture Normal urogenital gosia present P 50,000-90,000 CFU/mL Providencia stuartii Abnormal P 04/14/2024 1631 04/16/2024 1204 Blood culture Site #1 - Suspected Infection [[id number]] (Abnormal) Blood, Venous Preliminary result Component Value Blood Culture Proteus mirabilis Panic P Providencia stuartii Panic P Morganella morganii Panic P 04/14/2024 1631 04/16/2024 1204 Blood culture Site #2 - Suspected Infection [[id number]] (Abnormal) Blood, Venous Preliminary result Component Value Blood Culture Morganella shirin Panic P For identification and/or sensitivity, refer to culture collected on: 04/14/24 at 16:31, [id number]. This is an edited result. Previous organism was Gram-negative bacilli on 04/15/2024 at 0835 EDT. 04/14/2024 1631 04/15/2024 0828 Blood Culture Identification - Anaerobic [[id number]] (Abnormal) Blood, Venous Final result Component Value Proteus species Detected Abnormal Lines: PIV Radiography/Echo/Other: Procedure Component Value Units Date/Time FL pyelogram retrograde [[id number]] Resulted: 04/14/242216 Order Status: Completed Updated: 04/14/242216 Narrative: There is no interpretation needed for this exam. CT abdomen pelvis wo IV contrast [[id number]] Collected: 04/14/241928 Order Status: Completed Updated: 04/14/241938 Narrative: [facility] 1960 [id number] Exam Date/Time: 04/14/2024 19:28 Procedure: CT ABDOMEN PELVIS WO IV CONTRAST Ordering Provider: [facility] ON LICENSE OF [facility] Reason For Exam: Sepsis CT [...] 7:37 PM EDT XR chest 1 view [[id number]] Collected: 04/14/241650 Order Status: Completed Updated: 04/14/241652 Narrative: Patient Name: ANMOL [facility]YNOLDS : 1960 [id number] Exam Date/Time: 04/14/2024 16:39 Procedure: XR CHEST [...] no fungi. Discontinue fluconazole. Continue meropenem through early childhood coordinator, then, tomorrow change to ertapenem (1st dose [...] accounting for open encounter. Hospitalist Progress Note 04/19/20246998760-6947: Please page me ([phone]) for patient care issues. [phone]: Please page [facility] Hospitalist for any issues. Subjective: Admit [...] Type 2 diabetes mellitus without complication (CMS/HCC) ([facility]) LABS: CBC: Recent Labs 04/17/2434104/18/2471104/19/24427 WBC 7.9 [...] 7 5 LIVER PROFILE: Recent Labs 04/17/2434104/18/2471104/19/24 042 AST 22 18 19 ALT 22 [...] DO Division of Hospitalist Medicine Inpatient Medical Services/[facility] PAGER: [employer] chat Hospitalist Progress Note 04/18/2024 [phone]: Please page me ([phone]) for patient care issues. [phone]: Please page [facility] night Hospitalist for any issues. Subjective: Admit Date: 04/14/2024 PCP: AMBROSIO MONROY DO Room#: B2-254/B2-254 A Interval History: No overnight issues. Denies chest pain or sob. No abdominal pain, nausea, vomiting. No fevers or chills. Adult diet Regular; 5 carb choices (75 gm/meal) @[id number]@ 24HR INTAKE/OUTPUT: Intake/Output Summary (Last 24 hours) at 04/18/2024 1214 Last data filed at 04/18/2024 0500 Gross per 24 hour Intake 700 ml Output 3850 ml Net -3150 ml Past Medical History: Past Medical History: Diagnosis Date Abscess, perineum Chronic back pain Hip sprain Hyperlipidemia Hypertension Neuropathy Osteoarthritis Sciatica Type 2 diabetes mellitus without complication (CMS/HCC) ([facility]) LABS: CBC: Recent Labs 04/16/2451404/17/2434104/18/24711 WBC 11.9* [...] MD Division of Hospitalist Medicine Inpatient Medical Services/[facility] PAGER: [employer] chat Images from the original note were not included. [facility] - Infectious Diseases Attending [...] #1 - Assess for effectiveness of treatment [[id number]] Blood, Venous Preliminary result Component Value Blood Culture Blood culture incubation started P 04/16/2024 0654 04/16/2024 1101 Blood culture Site #2 - Assess for effectiveness of treatment [[id number]] Blood, Venous Preliminary result Component Value Blood Culture Blood culture incubation started P 04/15/2024 1713 04/15/2024 2208 MRSA by PCR [[id number]] (Abnormal) ESwab from Nasal Final result Component Value Staphylococcus aureus Detected Abnormal mecA gene Not Detected 04/15/2024 0103 04/16/2024 1135 Urine culture [[id number]] (Abnormal) Urine, Clean Catch Preliminary result Component Value Urine Culture Normal urogenital gosia present P 50,000-90,000 CFU/mL Providencia stuartii Abnormal P 04/14/2024 1631 04/16/2024 1204 Blood culture Site #1 - Suspected Infection [[id number]] (Abnormal) Blood, Venous Preliminary result Component Value Blood Culture Proteus mirabilis Panic P Providencia stuartii Panic P Morganella morganii Panic P 04/14/2024 1631 04/16/2024 1204 Blood culture Site #2 - Suspected Infection [[id number]] (Abnormal) Blood, Venous Preliminary result Component Value Blood Culture Lewis carpio Panic P For identification and/or sensitivity, refer to culture collected on: 04/14/24 at 16:31, [id number]. This is an edited result. Previous organism was Gram-negative bacilli on 04/15/2024 at 0835 EDT. 04/14/2024 1631 04/15/2024 0828 Blood Culture Identification - Anaerobic [[id number]] (Abnormal) Blood, Venous Final result Component Value Proteus species Detected Abnormal Lines: PIV Radiography/Echo/Other: Procedure Component Value Units Date/Time FL pyelogram retrograde [[id number]] Resulted: 04/14/242216 Order Status: Completed Updated: 04/14/242216 Narrative: There is no interpretation needed for this exam. CT abdomen pelvis wo IV contrast [[id number]] Collected: 04/14/241928 Order Status: Completed Updated: 04/14/241938 Narrative: Patient Name: ANMOL REYNOLDS : 1960 Exam Date/Time: 04/14/2024 19:28 Procedure: CT ABDOMEN PELVIS WO IV CONTRAST Ordering Provider: [facility] Reason For Exam: Sepsis CT ABDOMEN [...] 7:37 PM EDT XR chest 1 view [[id number]] Collected: 04/14/241650 Order Status: Completed Updated: 04/14/241652 Narrative: Patient Name: ANMOL REYNOLDS : 1960 [facility]#: [id number] Exam Date/Time: 04/14/2024 16:39 Procedure: XR CHEST 1 VIEW Ordering Provider: [facility] [place] Reason For Exam: sepsis INDICATION: Sepsis. VIEWS: [...] irrigated out of the bladder with the Ankita syringe but in light of his urosepsis [...] for open encounter. Hospitalist Progress Note 04/17/2024 [phone]: Please page me ([phone]) for patient care issues. [phone]: Please page [facility] night Hospitalist for any issues. Subjective: Admit Date: 04/14/2024 PCP: AMBROSIO MONROY DO Room#: 222-04/222-04 A Interval History: No overnight issues. Denies chest pain or sob. No abdominal pain, nausea, vomiting. No fevers or chills. Adult diet Regular; 5 carb choices (75 gm/meal) @[id number]@ 24HR INTAKE/OUTPUT: Intake/Output Summary (Last 24 hours) at 04/17/2024 0846 Last data filed at 04/17/2024 0621 Gross per 24 hour Intake 1876 ml Output 2535 ml Net -659 ml Past Medical History: Past Medical History: Diagnosis Date Abscess, perineum Chronic back pain Hip sprain Hyperlipidemia Hypertension Neuropathy Osteoarthritis Sciatica Type 2 diabetes mellitus without complication (CMS/HCC) ([facility]) LABS: CBC: Recent Labs 04/15/2440604/16/2451404/17/24341 WBC 11.2* [...] MD Division of Hospitalist Medicine Inpatient Medical Services/[facility] PAGER: [employer] chat Images from the original note were not included. [facility] - Infectious Diseases Attending Progress Note [...] #1 - Assess for effectiveness of treatment [[id number]] Blood, Venous Preliminary result Component Value Blood Culture Blood culture incubation started P 04/16/2024 0654 04/16/2024 110 Blood culture Site #2 - Assess for effectiveness of treatment [[id number]] Blood, Venous Preliminary result Component Value Blood Culture Blood culture incubation started P 04/15/2024 1713 04/15/2024 2208 MRSA by PCR [[id number]] (Abnormal) ESwab from Nasal Final result Component Value Staphylococcus aureus Detected Abnormal mecA gene Not Detected 04/15/2024 0103 04/16/2024 1135 Urine culture [[id number]] (Abnormal) Urine, Clean Catch Preliminary result Component Value Urine Culture Normal urogenital gosia present P 50,000-90,000 CFU/mL Providencia stuartii Abnormal P 04/14/2024 1631 04/16/2024 1204 Blood culture Site #1 - Suspected Infection [[id number]] (Abnormal) Blood, Venous Preliminary result Component Value Blood Culture Proteus mirabilis Panic P Providencia stuartii Panic P Morganella morganii Panic P 04/14/2024 1631 04/16/2024 1204 Blood culture Site #2 - Suspected Infection [[id number]] (Abnormal) Blood, Venous Preliminary result Component Value Blood Culture Morganella morganii Panic P For identification and/or sensitivity, refer to culture collected on: 04/14/24 at 16:31, [id number]. This is an edited result. Previous organism was Gram-negative bacilli on 04/15/2024 at 0835 EDT. 04/14/2024 1631 04/15/2024 0828 Blood Culture Identification - Anaerobic [[id number]] (Abnormal) Blood, Venous Final result Component Value Proteus species Detected Abnormal Lines: PIV Radiography/Echo/Other: Procedure Component Value Units Date/Time FL pyelogram retrograde [[id number]] Resulted: 04/14/242216 Order Status: Completed Updated: 04/14/242216 Narrative: There is no interpretation needed for this exam. CT abdomen pelvis wo IV contrast [[id number]] Collected: 04/14/241928 Order Status: Completed Updated: 04/14/241938 Narrative: Patient Name: ANMOL REYNOLDS : 1960 Exam Date/Time: 04/14/2024 19:28 Procedure: CT ABDOMEN PELVIS WO IV CONTRAST Ordering Provider: [facility] [place] Reason For Exam: Sepsis CT ABDOMEN AND [...] 7:37 PM EDT XR chest 1 view [[id number]] Collected: 04/14/241650 Order Status: Completed Updated: 04/14/241652 Narrative: [facility] Name[facility]OLDS : 1960 [id number] Exam Date/Time: 04/14/2024 16:39 Procedure: XR CHEST [...] [facility]: Anmol Reynolds ([id number]) Date: 04/16/2024 OT evaluation and treat orders received. PT spoke to patient at bedside. Pt is from [facility] and is paraplegic with everett lift to electric w/c. Pt also requires assist with ADLs. Pt states receives very minimal therapy services at [facility]. Pt has no current acute OT needs and is at baseline LOF. Rec return to [facility]. Chelita Blanc OT ICU Progress Note Name: Anmol Reynolds : 1960(63 y.o.) Date: 04/16/24 Team: MICU Chief Complaint: obstructed santana catheter, septic shock Subjective: Hospital Summary: 63 yoM with history of paraplegia after lumbar surgeries, [facility] resident, history of recurrent UTIs in [...] 93.1 kg (205 lb 4.8 oz) (04/14/24 155) BMI Body mass index is 25.66 kg/m [...] Normal [] Scar/Lesion/Mass Inspection of teeth/lips/gums Dentition: [x][place] Teeth []Dentures Lips/Gums: [x]Intact []Lesion Present Mucosa: []Burns []Moist [x]Dry Neck: External Appearance Overall Appearance: [...] PHOS -- 3.3 2.7 LFTs: Recent Labs 04/14/24160204/14/24195504/15/2440604/16/24 0515 AST 25 -- 36 37 ALT 22 -- 34 26 PROT 7.8 -- 5.5* 6.0* ALBUMIN 4.0 -- 2.6* 2.8* BILITOT 1.4* -- 1.1 0.9 ALKPHOS 167* -- 168* 130* LIPASE 12* <10* -- -- Glucose: Recent Labs 04/14/24160204/14/24221104/14/24221904/14/24233104/15/2440604/15/24 0608 04/15/24 1229 04/15/24 1732 04/15/24201904/16/24 0515 04/16/24 0803 GLUCOSE 259* -- -- [...] 14.9 15.2* ABGs: Recent Labs 04/14/24 1730 [id number] Room Air Lactic Acid: Recent Labs 04/14/24 2318 04/15/24 0407 04/15/24 0844 LACTATE 4.9* 3.6* [...] creatinine, and vancomycin levels interfaced automatically to [employer] and data has been analyzed and interpreted. [...] assess Fluid Accumulation: Mild Extremities (+2 ble) Metaphysics Teacher Strength: Not Performed Nutrition Assessment: per MD-pISTORY OF PRESENT ILLNESS: Anmol is a 63 y.o. male with , recurrent UTI at [facility] who presented to the ED today [...] WBC 1.5, er case manger-npatient status from [facility] with sepsis. Urology consulted due to [...] of paraplegia and states has been at [facility] for a year and wishes to [...] On: Kcal/kg Weight Used for Energy Requirements: [place] Weight for Energy Calculation (kg): 82.41 kg Total Energy Requirements (kcals/day): 28-30 or 2307- 24 72 Weight Used for Protein Requirements: [place] Weight in Kg Used for Protein Requirements: [...] (183 lb) % Weight Change (Calculated): 12.2 [place] Body Weight (lbs) (Calculated): 196 lbs [place] Body Weight (Kg) (Calculated): 89 kg % [place] Body Weight (Calculated): 104.7 % BMI (kg/m2) (Calculated): 25.7 Weight Adjustment For: Paraplegia % Weight Adjustment: 7.5 - Paraplegia Total Adjusted Percentage (Calculated): 7.5 Adjusted [place] Body Weight (lbs) (Calculated): 181.3 lbs Adjusted [place] Body Weight (kg) (Calculated): 82.41 kg Adjusted [...] Oral Nutrition Supplement Isabel Lieberman RD Contact: *[phone] or secure chat ICU Progress Note Name: [...] BP MAP Temp 37.1 C (98.8 F) (04/15/241) Pulse 101 (04/15/24 0832) Resp 16 (04/15/24 08) SpO2 97 % (04/15/24 08) Weight 93.1 kg (205 lb 4.8 oz) (04/14/24 1555) BMI Body mass index is 25.66 kg/m . I/O: 04/14 0700 - 04/15 659 In: 3791.8 [I.V.:87.8] Out: [...] Normal [] Scar/Lesion/Mass Inspection of teeth/lips/gums Dentition: [x][place] Teeth []Dentures Lips/Gums: [x]Intact []Lesion Present Mucosa: []Burns []Moist [x]Dry Neck: External Appearance Overall Appearance: [...] 24 hours- BMP: Recent Labs 04/14/24 16004/15/24 040 NA 137 135 K 3.9 3.6 CL [...] 14.8 14.9 ABGs: Recent Labs 04/14/24 173 [id number] Room Air Lactic Acid: Recent Labs 04/14/24 [...] original note were not included. PHYSICAL THERAPY [facility] Name/MRN: Anmol Reynolds ([id number]) Date: 04/15/2024 PT evaluation and treat orders received. Spoke to patient at bedside. Pt is from [facility] and is paraplegic with everett lift to electric w/c. Pt states receives very minimal therapy services at [facility]. Pt has no current acute PT needs and is at baseline LOF. Rec return to [facility]. Nakita Kwan PT Images from the original note were not included. [facility] Urology Inpatient Progress Note 04/15/2024 at [...] in patient's urologic status. Joe Hammer, DNP, POWDER PRESS OPERATOR, [facility] Subjective: Interval History: No overnight issues. [...] Sciatica Type 2 diabetes mellitus without complication ([facility]) ([facility]) Objective: Vitals: BP 108/67 Pulse [...] mg, 400 mg, IntraVENous, q24h, Brad Mujica, POWDER PRESS OPERATOR - NETWORK AND THREAT SUPPORT SPECIALIST, Stopped at 04/15/24 0254 glucagon (human recombinant) [...] in 0.9% sodium chloride 250 mL infusion ([id number]) (premix), 2-50 mcg/min, IntraVENous, Continuous, Pedro Luis [...] portions of this chart were dictated using [employer] electronic voice recognition software. It is possible that typos and/or omissions and/or substitutions of words and/or phrases may exist, which may alter the intended meaning of the dictating provider. On this date 04/15/2024 I have spent 35 minutes [id number] time, reviewing previous notes, test results and [...] creatinine, and vancomycin levels interfaced automatically to [employer] and data has been analyzed and interpreted. [...] Ongoing ICU care/mgmt documented in this encounter [facility] 04-17-2024 Consult note Associated Order (s): PHARMACY TO DOSE VANCO Vancomycin therapy has been discontinued by Dr. Moyer on 04-17. Thank you for the consult. Pharmacy signing off for vancomycin dosing. Carmel Collins RPh, Date: 04/17/24 Time: 1:40 PM Associated Order(s): IP CONSULT TO INFECTIOUS DISEASES Images from the original note were not included. [facility] - Infectious Diseases Attending Consult Note [...] Sciatica Type 2 diabetes mellitus without complication ([facility]/HCC) (HCC) Past Surgical History: Past Surgical History: Procedure Laterality Date ANKLE SURGERY Right He has a titanium plate to the right ankle KNEE SURGERY ACL LAMINECTOMY Left 10/24/2020 LEFT BILATERAL L2-3-4-5 DECOMPRESSION performed by Opal Vigil MD at [facility] OR ORTHOPEDIC SURGERY PLACE URETAL STENT PERC [...] mg 400 mg IntraVENous q24h Brad Mujica, POWDER PRESS OPERATOR - NETWORK AND THREAT SUPPORT SPECIALIST Stopped at 04/15/24 0254 glucagon (human recombinant) [...] 0-6 Units 0-6 Units SubCUTAneous q6h Brad Mujica, POWDER PRESS OPERATOR - NETWORK AND THREAT SUPPORT SPECIALIST 3 Units at 04/15/24 1334 Insulin Lispro [...] in 0.9% sodium chloride 250 mL infusion (Vle-Eqxyat-Ljzdr) (premix) 2-50 mcg/min IntraVENous Continuous Pedro Luis [...] Resource Strain: Low Risk (04/24/2023) Received from [facility], [facility] Overall Financial Resource Strain (CARDIA) [...] (!) 11 100 % -- -- 04/15/24 115 -- -- -- 72 (!) 11 97 % -- -- 04/15/24 1150 -- -- -- 70 12 98 % -- -- 04/15/24 114 -- -- -- 71 (!) 9 98 [...] 70 (!) 10 96 % -- -- 04/15/245 -- -- -- 70 (!) 10 96 % -- -- 04/15/244 -- -- -- 70 (!) 11 96 [...] -- 86 13 96 % -- -- 04/15/24 0949 -- -- -- 92 19 97 % -- -- 04/15/24 0948 -- -- -- 86 14 96 % -- -- 04/15/24 0947 -- -- -- 77 12 96 % -- -- 04/15/24 0946 -- -- -- 84 13 96 % -- -- 04/15/24 0945 -- -- -- 82 14 96 % [...] -- 82 13 95 % -- -- 04/15/24932 -- -- -- 87 15 95 % -- -- 04/15/24931 -- -- -- 85 (!) 11 95 [...] -- 84 19 94 % -- -- 04/15/24856 -- -- -- 90 17 94 % -- -- 04/15/24 0856 -- -- -- 87 17 95 % -- -- 04/15/24 0855 -- -- -- 90 15 95 % -- -- 04/15/24 0854 -- -- -- 89 12 94 % -- -- 04/15/24 0853 -- -- -- 89 16 94 % -- -- 04/15/24 0852 -- -- -- 90 18 94 % -- -- 04/15/24 0851 -- -- -- 91 (!) 11 94 [...] -- 91 16 95 % -- -- 04/15/24 0837 -- -- -- 92 19 95 % -- -- 04/15/24 0836 -- -- -- 95 14 97 % [...] -- 87 12 95 % -- -- 04/15/24808 -- -- -- 87 12 95 % -- -- 04/15/24 0808 -- -- -- 87 12 94 % -- -- 04/15/24 0807 -- -- -- 86 12 95 % -- -- 04/15/2406 -- -- -- 88 13 95 % -- -- 04/15/24804 -- -- -- 87 13 95 % -- -- 04/15/24803 -- -- -- 87 (!) 11 95 % -- -- 04/15/24802 -- -- -- 86 12 95 % -- -- 04/15/24801 -- -- -- 87 12 95 % -- -- 04/15/2401 107/65 36.8 C (98.3 F) Oral 88 [...] -- 88 13 95 % -- -- 04/15/24737 -- -- -- 86 12 95 % -- -- 04/15/24736 -- -- -- 87 14 95 % -- -- 04/15/24735 -- -- -- 88 13 95 % -- -- 04/15/24734 -- -- -- 89 14 96 % -- -- 04/15/24733 -- -- -- 87 13 95 % -- -- 04/15/24732 -- -- -- 87 13 95 % -- -- 04/15/24731 108/68 -- -- 87 13 95 % [...] -- 88 14 95 % -- -- 04/15/2421 -- -- -- 87 13 95 % -- -- 04/15/2420 -- -- -- 88 13 95 % -- -- 04/15/2419 -- -- -- 91 17 96 % [...] -- 86 13 95 % -- -- 04/15/2409 -- -- -- 87 13 95 % -- -- 04/15/2408 -- -- -- 86 13 95 % -- -- 04/15/24706 -- -- -- 86 13 95 % -- -- 04/15/2406 -- -- -- 86 13 94 % -- -- 04/15/2405 -- -- -- 87 12 93 % -- -- 04/15/24703 -- -- -- 88 13 93 % -- -- 04/15/24702 -- -- -- 89 12 93 % -- -- 04/15/24701 -- -- -- 88 13 92 % -- -- 04/15/24700 (!) 63 -- -- 90 13 93 % -- -- 04/15/24699 -- -- -- 89 14 92 % -- -- 04/15/24630 (!) 63 -- -- 92 13 91 % -- -- 04/15/2408 (!) 64 -- -- 95 18 93 [...] 93 % -- -- 04/15/24 0301 (!) 88 -- -- 105 22 96 % -- [...] hours. 04/15/2024 0103 04/15/2024 0107 Urine culture [[id number]] Urine, Clean Catch In process Component Value No component results 04/14/2024 1631 04/15/2024 0835 Blood culture Site #1 - Suspected Infection [[id number]] (Abnormal) Blood, Venous Preliminary result Component Value Blood Culture Gram-negative bacilli Panic P 04/14/2024 1631 04/15/2024 0835 Blood culture Site #2 - Suspected Infection [[id number]] (Abnormal) Blood, Venous Preliminary result Component Value Blood Culture Gram-negative bacilli Panic P 04/14/2024 1631 04/15/2024 0828 Blood Culture Identification - Anaerobic [[id number]] (Abnormal) Blood, Venous Final result Component Value Proteus species Detected Abnormal Lines: PIV Radiography/Echo/Other: CT abdomen pelvis wo IV contrast [[id number]] Collected: 04/14/241928 Order Status: Completed Updated: 04/14/241938 Narrative: Patient Name: ANMOL REYNOLDS : 1960 Exam Date/Time: 04/14/2024 19:28 Procedure: CT ABDOMEN PELVIS WO IV CONTRAST Ordering Provider: [facility] Reason For Exam: Sepsis CT ABDOMEN AND [...] 7:37 PM EDT XR chest 1 view [[id number]] Collected: 04/14/241650 Order Status: Completed Updated: 04/14/241652 Narrative: [facility] Name: [facility]YNOLDS : 1960 [id number] Exam Date/Time: 04/14/2024 16:39 Procedure: XR CHEST 1 VIEW Ordering Provider: [facility] Reason For Exam: sepsis INDICATION: Sepsis. VIEWS: [...] open encounter. Associated Order(s): IP CONSULT TO CHRONIC DISEASE MANAGER This patient is not a new diabetic [...] associated supplies are needed. Thank you. Karlos PAVON,BSN,[facility] Images from the original note were not [...] creatinine, and vancomycin levels interfaced automatically to [employer] and data has been analyzed and interpreted. [...] DATE: 04/14/24 TIME: 10:55 PM Dariel Patino [facility] Clinical Pharmacist Available via Secure [...] er due to clogged santana. Data Afebrile [id number] Pulse-120 Creat-1.24 Co2-19 Lactic 5.1>>3.9 Wbc 1.5 [...] DECOMPRESSION performed by Opal Vigil MD at [facility] OR ORTHOPEDIC SURGERY ALLERGIES: No Known Allergies [...] Resource Strain: Low Risk (04/24/2023) Received from [facility] Overall Financial Resource Strain (CARDIA) Difficulty of Paying Living Expenses: Not hard at all Food Insecurity: No Food Insecurity (04/24/2023) Received from [facility] Hunger Vital Sign Worried About Running Out of Food in the Last Year: Never true Ran Out of Food in the Last Year: Never true Transportation Needs: No Transportation Needs (04/24/2023) Received from [facility] PRAPARE - Transportation Lack of Transportation (Medical): No Lack of Transportation (Non-Medical): No Physical Activity: Not on file Stress: Not on file Social Connections: Not on file Intimate Partner Violence: Not on file Housing Stability: High Risk (04/24/2023) Received from [facility], [facility] Housing Stability Vital Sign Unable to Pay for Housing in the Last Year: No Number of Places Lived in the Last Year: 4 In the last 12 months, was there a time when you did not have a steady place to sleep or slept in a [place] facility (including now)?: No Review of Systems Constitutional: [...] paraplegic patient, history of recurrent UTI at [facility] who presented to the ED today [...] Type 2 diabetes mellitus without complication (CMS/HCC) ([facility]) Past Surgical History: Procedure Laterality Date ANKLE SURGERY Right He has a titanium plate to the right ankle KNEE SURGERY ACL LAMINECTOMY Left 10/24/2020 LEFT BILATERAL L2-3-4-5 DECOMPRESSION performed by Opal Vigil MD at [facility] [facility] OR ORTHOPEDIC SURGERY No family history on [...] Resource Strain: Low Risk (04/24/2023) Received from [facility] Overall Financial Resource Strain (CARDIA) Difficulty of Paying Living Expenses: Not hard at all Food Insecurity: No Food Insecurity (04/24/2023) Received from [facility] Hunger Vital Sign Worried About Running Out of Food in the Last Year: Never true Ran Out of Food in the Last Year: Never true Transportation Needs: No Transportation Needs (04/24/2023) Received from [facility], [facility] PRAPARE - Transportation Lack of Transportation (Medical): No Lack of Transportation (Non-Medical): No Physical Activity: Not on file Stress: Not on file Social Connections: Not on file Intimate Partner Violence: Not on file Housing Stability: High Risk (04/24/2023) Received from [facility], [facility] Housing Stability Vital Sign Unable to Pay for Housing in the Last Year: No Number of Places Lived in the Last Year: 4 In the last 12 months, was there a time when you did not have a steady place to sleep or slept in a [place] (including now)?: No No Known Allergies Prior [...] Units under the skin. 04/28/23 Historical Provider, MD mirtazapine (Remeron) 7.5 MG tablet 12/20/23 Historical [...] Normal [] Scar/Lesion/Mass Inspection of teeth/lips/gums Dentition: [][place] Teeth []Dentures Lips/Gums: []Intact []Lesion Present Mucosa: []Burns [x]Moist []Dry Neck: External Appearance Overall Appearance: [...] 14.8 -- ABGs: Recent Labs 04/14/24 1730 [id number] Room Air Lactic Acid: Recent Labs 04/14/24 [...] Consider meropenem. \\ documented in this encounter [facility] 04-15-2024 Telephone encounter Note SURGERY SCHEDULING Surgeon: Dr. Dashawn Grimm PROCEDURE: Cystoscopy, possible cystolitholapaxy, bilateral ureteroscopy, bilateral laser lithotripsy, bilateral ureteral stent change - Special request: Astrid laser DIAGNOSIS: Bladder calculus, bilateral ureteral stones FACILITY: [facility] DETAILS: OUTPT ANESTHESIA: GENERAL TIME REQUESTED: 2hr DATE REQUESTED: Must be minimum of 2 weeks from today due to infection SURGERY ORDERS: Already placed by Joe Hammer NP on 04/15/2024 POST OP FOLLOW UP: cysto stent removal 2 wks [facility] 04-15-2024 History and physical note Images from the original note were not included. Attending History and Physical Admit Date: 04/14/2024 PCP: AMBROSIO MONROY DO CHIEF COMPLAINT: UTI Reason for Admission: Seps History Obtained From: patient HISTORY OF PRESENT ILLNESS: Anmol is a 63 y.o. male with , recurrent UTI at [facility] who presented to the ED today [...] DECOMPRESSION performed by Opal Vigil MD at [facility] OR ORTHOPEDIC SURGERY PLACE URETAL STENT PERC [...] Resource Strain: Low Risk (04/24/2023) Received from [facility] Overall Financial Resource Strain (CARDIA) Difficulty of Paying Living Expenses: Not hard at all Food Insecurity: No Food Insecurity (04/24/2023) Received from [facility] Hunger Vital Sign Worried About Running Out of Food in the Last Year: Never true Ran Out of Food in the Last Year: Never true Transportation Needs: No Transportation Needs (04/24/2023) Received from [facility] PRAPARE - Transportation Lack of Transportation (Medical): No Lack of Transportation (Non-Medical): No Physical Activity: Not on file Stress: Not on file Social Connections: Not on file Intimate Partner Violence: Not on file Housing Stability: High Risk (04/24/2023) Received from [facility], [facility] Housing Stability Vital Sign Unable to Pay for Housing in the Last Year: No Number of Places Lived in the Last Year: 4 In the last 12 months, was there a time when you did not have a steady place to sleep or slept in a [place] facility (including now)?: No Family History: No family [...] - DO NOT do CPR, intubation] [_] [DNR-BACKUP ENGINEER - Comfort care only] [_] DNR form [...] Orquidea Marti MD Division of Hospitalist Medicine [facility] documented in this encounter [facility] 04-14-2024 Emergency department Note Both sets of blood cultures obtained from each PIV when started. Samples labeled and at bedside in case BC ordered Leyla Mendoza RN 04/14/24 6087 Patient arrives via EMS from [facility] with [...] Type 2 diabetes mellitus without complication (CMS/HCC) ([facility]) SURGICAL HISTORY Past Surgical History: Procedure Laterality Date ANKLE SURGERY Right He has a titanium plate to the right ankle KNEE SURGERY ACL LAMINECTOMY Left 10/24/2020 LEFT BILATERAL L2-3-4-5 DECOMPRESSION performed by Opal Vigil MD at [facility] OR ORTHOPEDIC SURGERY CURRENT MEDICATIONS Previous Medications [...] Resource Strain: Low Risk (04/24/2023) Received from [facility] Overall Financial Resource Strain (CARDIA) Difficulty of Paying Living Expenses: Not hard at all Food Insecurity: No Food Insecurity (04/24/2023) Received from [facility] Hunger Vital Sign Worried About Running Out of Food in the Last Year: Never true Ran Out of Food in the Last Year: Never true Transportation Needs: No Transportation Needs (04/24/2023) Received from [facility] PRAPARE - Transportation Lack of Transportation (Medical): No Lack of Transportation (Non-Medical): No Housing Stability: High Risk (04/24/2023) Received from [facility] Housing Stability Vital Sign Unable to Pay for Housing in the Last Year: No Number of Places Lived in the Last Year: 4 In the last 12 months, was there a time when you did not have a steady place to sleep or slept in a [place] facility (including now)?: No SCREENINGS PHYSICAL EXAM ED Triage Vitals [04/14/24 1555] Temp Heart Rate Resp BP 37.6 C (99.6 F) (!) 121 20 -- SpO2 Temp Source Heart Rate Source Patient Position 99 % Oral Monitor Lying BP Location FiO2 (%) Left arm -- Bdxfrnv-ztkc-idbmpsdqx, slightly toxic-appearing HEENT- atraumatic, normocephalic Neck- no [...] Culture. Procedure Abnormality Status --------- ------ Complete Urinalysis[[id number]] Please view results for these tests on [...] 1611. Rate 119 sinus tachycardia. Normal axis. RI interval 154, QRS 90, QTc 473. No [...] Dickens MD 04/14/242003 documented in this encounter [facility] 04-13-2024 Telephone encounter Note Called pt [...] rehab and spine surgery. Vaishali Pierre DO [facility] 04-06-2024 Telephone encounter Note Telephoned [place] pt at dinner and medical receptionist assistant states she cannot pull pt away from dinner. [facility] 04-06-2024 Telephone encounter Note Called pt [...] to the above findings.He does not have [employer] set up to message. Vaishali Pierre DO [facility] 02-10-2024 Instructions Vaishali Pierre DO - 02/10/2024 1:53 PM EDT - xrays of the low back - can schedule the MRI of the lumbar spine - I recommend seeing one of my colleagues in the spinal cord injury clinic documented in this encounter [facility] 02-10-2024 History of Present illness Narrative [...] currently in a nursing facility, [facility]. 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 Vaishali Pierre DO Physical Medicine and Rehabilitation Vitals not obtained per provider's instructions. documented in this encounter [facility] 01-29-2024 History of Present illness Narrative Images from the original note were not included. [facility] [address] [place] [address] Dept: [phone] Dept Chief Complaint Patient presents with Pain [...] without abscess 10/15/2020 Diabetes mellitus without complication ([facility]/HCC) ([facility]) 10/15/2020 Abnormal finding on EKG 10/15/2020 Other intervertebral disc displacement, lumbar region 10/15/2020 Lumbar radiculopathy 10/04/2020 Herniated nucleus pulposus, L5-S1, left 07/07/2017 No Known Allergies No family history on file. Past Medical History: Diagnosis Date Abscess, perineum Chronic back pain Hip sprain Hyperlipidemia Hypertension Neuropathy Osteoarthritis Sciatica Type 2 diabetes mellitus without complication (CMS/HCC) ([facility]) Social History Socioeconomic History Marital [...] DECOMPRESSION performed by Opal Vigil MD at [facility] OR ORTHOPEDIC SURGERY Current Outpatient Medications Medication [...] follow-ups on file. documented in this encounter [facility] 12-29-2023 History of Present illness Narrative Images from the original note were not included. [facility] [address] [place] [address] Dept: [phone] Dept Chief Complaint Patient presents with New [...] Pressure injury of coccygeal region, stage 3 ([facility]) 04/20/2024 Septic shock ([facility]) 04/14/2024 Lumbar stenosis with neurogenic claudication 10/24/2020 Spinal stenosis of lumbar region with neurogenic claudication 10/24/2020 Nicotine use disorder 10/15/2020 Unspecified osteoarthritis, unspecified site 10/15/2020 Pilonidal cyst without abscess 10/15/2020 Diabetes mellitus without complication ([facility]/HCC) ([facility]) 10/15/2020 Abnormal finding on EKG [...] Resource Strain: Low Risk (04/24/2023) Received from [facility], [facility] Overall Financial Resource Strain (CARDIA) [...] DECOMPRESSION performed by Opal Vigil MD at [facility] OR ORTHOPEDIC SURGERY Right removal of hardware [...] follow-ups on file. documented in this encounter [facility] 09-08-2023 Telephone encounter Note Called and left message for doug to call to schedule patient a new patient appointment [facility] 09-08-2023 Miscellaneous Notes Called and left message for doug to call to schedule patient a new patient appointment Name of caller: Doug Contact phone number: [phone] Relationship to Patient: [facility] [place] Provider: Practice: Pain Management Chief Complaint/Reason for Call: Doug states she mailed the referral over to the office and would like to know if the office received it. Please advise Best time of day caller can be reached: Any Patient advised that office/PCP has 24-48 business hours to return their call: Yes documented in this encounter [facility] 09-04-2023 Telephone encounter Note Name of caller: Doug Contact phone number: [phone] Relationship to Patient: [facility] [place] Provider: Practice: Pain Management Chief Complaint/Reason for Call: Doug states she mailed the referral over to the office and would like to know if the office received it. Please advise Best time of day caller can be reached: Any Patient advised that office/PCP has 24-48 business hours to return their call: Yes [facility] 08-19-2023 Telephone encounter Note Returned call gave fax number gave address to mail referral [facility] 08-19-2023 Miscellaneous Notes Returned call gave fax number gave address to mail referral Name of caller: [facility] Contact phone number: [phone] Relationship to Patient: [facility] [place] Provider: Dr. Gillette Practice: Pain Management Chief Complaint/Reason for Call: Pt claims that fax of referral will not go threw and was hoping someone could give her a call back to go over the referral please advise Best time of day caller can be reached: Any Patient advised that office/PCP has 24-48 business hours to return their call: No Name of caller: [facility] Contact phone number: [phone] Relationship to Patient: [facility] [place] Provider: Dr. Gillette Practice: Pain Management Chief Complaint/Reason for Call: [facility] states she would like a call back to confirm receipt of the patient's referral for GYROSCOPE TECHNICIAN appt scheduling (fax number confirmed). Please contact [facility] and advise. Best time of day caller can be reached: Any Patient advised that office/PCP has 24-48 business hours to return their call: No documented in this encounter [facility] 08-19-2023 Telephone encounter Note Name of caller: [facility] Contact phone number: [phone] Relationship to Patient: [facility] [place] Provider: Dr. Gillette Practice: Pain Management Chief Complaint/Reason for Call: Pt claims that fax of referral will not go threw and was hoping someone could give her a call back to go over the referral please advise Best time of day caller can be reached: Any Patient advised that office/PCP has 24-48 business hours to return their call: No [facility] 08-19-2023 Telephone encounter Note Name of caller: Doug Contact phone number: [phone] Relationship to Patient: [facility] [place] Provider: Dr. Gillette Practice: Pain Management Chief Complaint/Reason for Call: [facility] states she would like a call back to confirm receipt of the patient's referral for GYROSCOPE TECHNICIAN appt scheduling (fax number confirmed). Please contact [facility] and advise. Best time of day caller can be reached: Any Patient advised that office/PCP has 24-48 business hours to return their call: No [facility] 08-13-2023 Telephone encounter Note Called and gave fax number to send referral [facility] 08-13-2023 Miscellaneous Notes Called and gave fax number to send referral Pt is asking for a call back to be scheduled Left message for patient to call the office Returned call will call thursday Name of Caller: Doug Sanchez [facility] Contact Reason for Appointment: Doug states that they faxed over a referral for patient a few days ago and is calling to schedule a GYROSCOPE TECHNICIAN appointment. Please advise. Office Name: [facility] Med[facility] Refills need, if any: none Medication Name: n/a ` documented in this encounter [facility] 08-13-2023 Telephone encounter Note Pt is asking for a call back to be scheduled [facility] 08-12-2023 Telephone encounter Note Left message for patient to call the office [facility] 08-07-2023 Telephone encounter Note Returned call will call thursday [facility] 08-06-2023 Telephone encounter Note Name of Caller: Doug Sanchez [facility] Contact Reason for Appointment: Doug states that they faxed over a referral for patient a few days ago and is calling to schedule a GYROSCOPE TECHNICIAN appointment. Please advise. Office Name: [facility] Medication Refills need, if any: none Medication Name: n/a ` [facility] 05-23-2023 Emergency department Note [facility] arrived and report given. Patient loaded and sent back to [facility]. Vladimir Dimas RN 05/23/23 120 [facility] 05-23-2023 Emergency department Note [facility] arrived and report given. Patient loaded and sent back to [facility]. Vladimir Dimas RN 05/23/23 1207 Inserted a [...] Sciatica Type 2 diabetes mellitus without complication ([facility]) SURGICAL HISTORY Past Surgical History: Procedure Laterality Date ANKLE SURGERY Right He has a titanium plate to the right ankle KNEE SURGERY ACL LAMINECTOMY Left 10/24/2020 LEFT BILATERAL L2-3-4-5 DECOMPRESSION performed by Opal Vigil MD at [facility] OR ORTHOPEDIC SURGERY CURRENT MEDICATIONS Previous Medications [...] Culture. Procedure Abnormality Status --------- ------ Complete Urinalysis[[id number]] Abnormal Final result Please view results for [...] . I Colt Klein DO am the tunneling machine operator of record. PROCEDURES: Unless otherwise noted below, none Procedures FINAL IMPRESSION 1. Urinary tract infection associated with indwelling urethral catheter, initial encounter ([facility]) DISPOSITION Discharge 05/23/2023 09:53:37 AM PATIENT REFERRED TO: Ambrosio Monroy DO [address] [facility] [address] [facility] [address] [facility] ED [address] [facility] [address] DISCHARGE MEDICATIONS: New Prescriptions CEPHALEXIN (KEFLEX) [...] santana without success. documented in this encounter [facility] 05-23-2023 Emergency department Note Inserted a santana and drained initially 100ml of blood and puss. Bladder scan showed 500+ ml of fluid in bladder. Obtained OK from ED Attending to manually flush and drain the catheter. After using 30 ml of NS to flush patient the urine began to flow into the santana bag. Urine sample sent. Vladimir Dimas RN 05/23/23 1013 [facility] 05-23-2023 Emergency department Note Bed: 18 Expected date: Expected time: Means of arrival: Comments: Adelia Banuelos 05/23/23 0746 [facility] 05-23-2023 Emergency department Triage note Patient with chronic santana due to history of paraplegia that became clogged with blood clots. Patient had lithotripsy due to stone recently. SNF attempted several times to reinsert santana without success. [facility] 05-23-2023 Physician Emergency department Note EMERGENCY [...] Sciatica Type 2 diabetes mellitus without complication ([facility]) SURGICAL HISTORY Past Surgical History: Procedure Laterality Date ANKLE SURGERY Right He has a titanium plate to the right ankle KNEE SURGERY ACL LAMINECTOMY Left 10/24/2020 LEFT BILATERAL L2-3-4-5 DECOMPRESSION performed by Opal Vigil MD at [facility] OR ORTHOPEDIC SURGERY CURRENT MEDICATIONS Previous Medications [...] Culture. Procedure Abnormality Status --------- ------ Complete Urinalysis[[id number]] Abnormal Final result Please view results for [...] . I Colt Klein DO am the tunneling machine operator of record. PROCEDURES: Unless otherwise noted below, none Procedures FINAL IMPRESSION 1. Urinary tract infection associated with indwelling urethral catheter, initial encounter ([facility]) DISPOSITION Discharge 05/23/2023 09:53:37 AM PATIENT REFERRED TO: Ambrosio Monroy DO [address] [facility] 295671 [facility] [address] [place] [phone] DISCHARGE MEDICATIONS: New Prescriptions CEPHALEXIN (KEFLEX) [...] Medicine Provider Colt Klein DO 05/23/23 1010 [facility] 04-21-2022 Note HNO ID: [id number] Author: Cindi Cuellar PA-C Service: ? Author Type: Physician Svp Group Director Type: Progress Notes Filed: 04/21/2022 12:25 PM Note Text: Actionable Finding: Reviewed patient's chart. The actionable finding of MRI lumbar , dated 02/14/22 was followed up by unknown and unsure if the patient was contacted regarding the MRI results. Unable to reach patient. Staff msg sent to Dr Kelly - patient spine surgeon. Cindi Cuellar PA-C [facility] 04-21-2022 Note Patient Outreach (DILLON BROWN) GIVEN,ANMOL ([id number]) 1960 M Date Time Provider Department 04/21/22 [...] Of Date 04/21/2022 Noted Resolved NO SHOW [[id number]] 08/31/2013 05/29/2020 Perineal abscess [L02.215] 06/13/2019 05/29/2020 [...] Encounter Status:Closed by CINDI CUELLAR on 04/21/22 [facility] 04-21-2022 Note Patient Outreach (SP NSMN) GIVEN,ANMOL ([id number]) 1960 M Date Time Provider Department 04/21/22 [...] Allergies) Date Reviewed: 01/22/2022 Reviewed by: Kathrin Salmon, LIBRADO - Fully Assessed Prescriptions as [...] Of Date 04/21/2022 Noted Resolved NO SHOW [[id number]] 08/31/2013 05/29/2020 Perineal abscess [L02.215] 06/13/2019 05/29/2020 [...] Encounter Status:Closed by CINDI CUELLAR on 04/21/22 [facility] 04-21-2022 History of Present illness Narrative Actionable Finding: Reviewed patient's chart. The actionable finding of MRI lumbar , dated 02/14/22 was followed up by unknown and unsure if the patient was contacted regarding the MRI results. Unable to reach patient. Staff msg sent to Dr Kelly - patient spine surgeon. Cindi Cuellar PA-C documented in this encounter [facility] 02-14-2022 History of Present illness [...] PERIPHERAL IV DATA: Ambulatory: Picc line from [facility] RADIOLOGY DEPARTMENT: MR; Exam(s) Completed: Head: Routine Brain Spine: WHOLE spine SIGNATURE: RT Kasandra(R) PATIENT NAME: Anmol Reynolds DATE: February 14, 2022 TIME: 12:27 PM documented in this encounter [facility] 08-05-2021 Note HNO ID: [id number] Author: Penny Cameron MD Service: ? Author [...] CT chest abd/pelvis (more content not included)... [facility] 01-16-2021 History of Past i llness Narrative Problem Noted Date Resolved Date Perirectal abscess 01/16/2021 08/21/2021 Perineal abscess 06/13/2019 05/29/2020 NO SHOW 08/31/2013 05/29/2020 documented as of this encounter (statuses as of 02/15/2022) [facility] History of Past illness Narrative* Problem Noted Date Resolved Date Perirectal abscess 01/16/2021 08/21/2021 Perineal abscess 06/13/2019 05/29/2020 NO SHOW 08/31/2013 05/29/2020 documented as of this encounter (statuses as of 04/21/2022) [facility] noteNo assessment information availableWCorey Hospital Work Phone: Evaluation note* Diagnosis Urinary tract infection associated with indwelling urethral catheter, initial encounter (HCC)- Primary [facility] Diagnosis Injury of lumbar spinal cord, sequela (HCC)- Primary Neuropathic pain documented in this encounter [facility]* Diagnosis Paraplegia (HCC)- Primary Paraplegia History of lumbar fusion Paraplegia (HCC) Paraplegia History of [facility] Diagnosis Paraplegia (HCC) Paraplegia History of lumbar fusion [facility]* Diagnosis Bilateral ureteral calculi- Primary Bladder calculus Other calculus in bladder documented in this encounter [facility]* Diagnosis Septic shock (HCC)- Primary Septic shock (HCC) Urinary obstruction Decubitus ulcer of sacral region, stage 2 (HCC) Injury of lumbar spinal cord, sequela (HCC) Neuropathic pain Pressure injury of coccygeal region, stage 3 (HCC) Bacteremia Pressure injury of coccygeal region, stage 3 (HCC) Calculus of ureter documented in this encounter [facility]* Diagnosis Paraplegia (HCC)- Primary Paraplegia History of lumbar fusion Sacral insufficiency fracture, initial encounter [facility]* Diagnosis Bladder calculus- Primary Other calculus in bladder Bladder calculus Other calculus in bladder Bilateral ureteral calculi Calculus of ureter documented in this encounter [facility] note* Diagnosis Sacral insufficiency [...] stage 3 (HCC) [facility]* Diagnosis Spinal cord injury, lumbar, without spinal bone injury, sequela (HCC)- Primary Neuropathic pain documented in this encounter [facility]* Diagnosis Paraplegia (HCC)- [...] fracture, initial encounter [facility] Diagnosis Paraplegia (HCC)- Primary Paraplegia Neuropathic [...] unspecified stage- Primary [facility]* Diagnosis Chronic osteomyelitis (HCC)- Primary Chronic [...] Other postprocedural status documented in this encounter [facility]* Diagnosis Paraplegia (HCC)- Primary Paraplegia Neurogenic bladder Neurogenic bladder, NOS Gross hematuria Neuropathic pain Neuralgia, neuritis, and radiculitis, unspecified Pressure injury of skin, unspecified injury stage, unspecified location [facility]* Diagnosis Ureteral stent present- Primary Kidney stone Calculus of kidney Hydronephrosis, unspecified hydronephrosis type documented in this encounter [facility] note* Diagnosis Chronic osteomyelitis (HCC)- Primary Chronic osteomyelitis, site unspecified Severe protein-calorie malnutrition (HCC) Other severe protein-calorie malnutrition Ureteral calculi Calculus of ureter Complicated UTI (urinary tract infection) Urinary tract infection, site not specified Neurogenic bladder Neurogenic bladder, NOS Type 2 diabetes mellitus with hyperglycemia, with long-term current use of insulin (HCC) documented in this encounter [facility] note* Diagnosis Other acute osteomyelitis, other site (HCC)- Primary Other acute osteomyelitis, other site (HCC) Pressure injury of coccygeal region, stage 3 (HCC) Lumbar stenosis with neurogenic claudication Osteoarthritis, unspecified osteoarthritis type, unspecified site Other intervertebral disc displacement, lumbar region Pressure injury of coccygeal region, stage 3 (HCC) [facility] Diagnosis Pressure injury of coccygeal region, stage 3 (HCC)- Primary Other acute osteomyelitis, other site (HCC) MRSA (methicillin resistant Staphylococcus aureus) infection Methicillin resistant Staphylococcus aureus in conditions classified elsewhere and of unspecified site Encounter for long-term (current) use of antibiotics Paraplegia (HCC) Paraplegia [facility] Discharge instructions* Attachments The following attachments cannot be sent through Care Everywhere. * Urinary Tract Infections in Adults (Bahraini) [facility] (narrative)* Consultation (Routine) - Pending Review Specialty Diagnoses / Procedures Referred By Contac t Referred To Contact Urology Diagnoses Urinary obstruction Procedures RI OFFICE/OUTPATIENT [facility] 60 MINUTES Otis Mckenzie DO [address] [place] [address] Dashawn Grimm MD [address] [address] Referral ID Status Reason Start Date Expiration Date Visits Requested Visits Authorized [id number] Pending Review Specialty Services Required 04/20/2024 04/20/2025 1 1 * Consultation (Routine) - Pending Review Specialty Diagnoses / Procedures Referred By Contac t Referred To Contact Wound Care Diagnoses Decubitus ulcer of sacral region, stage 2 (HCC) Procedures RI OFFICE/OUTPATIENT [facility] 60 MINUTES Sumi Everett APRN - CNP [address] [place] [address] Sb Op Wnd Ostomy Hbo [address] [place] [address] Referral ID Status Reason Start Date Expiration Date Visits Requested Visits Authorized [id number] Pending Review Specialty Services Required 04/15/2024 04/15/2025 1 1 [facility] for referral (narrative)No reason for referral information availableWCorey Hospital Work Phone: Reason for visit Narrative* Service Level Authorization (Routine) - Closed Specialty Diagnoses / Procedures Referred By Daisy paredes Referred To Contact Physical Medicine & Rehab/PM&R Diagnoses Paraplegia (HCC) Reflex neurogenic bladder Procedures CYSTOMETROGRAM W/TRAFFIC LAW ATTORNEY BLADDER IRRIGATION, SIMPLE, LAVAGE &/OR INSTILLATION COMPLEX UROFLOWMETRY ELECTROMYOGRAPHY STUDIES, ANAL/URETHRAL SPHINCTER, OTHER THAN NEEDLE, ANY TECHNIQUE VOIDING PRESSURE STUDIES; INTRA-ABDOMINAL VOIDING PRESSURE Faisal Simeon, DO [address] [place] [address] Phone: tel: fax: [facility] PM&R [address] [place] [address] Phone: tel: Referral ID Status Reason Start Date Expiration Date V isits Requested Visits Authorized [id number] Closed [facility] 06/13/2024 06/13/2025 1 1 [facility] for visit Narrative* MRI/CT (Routine) - Authorized Specialty Diagnoses / Procedures Referred By Daisy paredes Referred To Contact Radiology / [facility] Diagnoses Pressure ulcer of sacral region, unspecified stage PT WILL NEED A EVERETT LIFT SACRUM/PELVIS WO/W Pressure ulcer of sacral region, unspecified stage [L89.159] BIRDIE WILL FAX ORDER Procedures MRI PELVIS W/O & W/CONTRAST MATERIAL MRI WWO NEU1 B 300 Kristine Howell, POWDER PRESS OPERATOR [address] [place] [address] Phone: tel: fax: Radiology [address] [place] [address] Phone: tel: Referral ID Status Reason Start Date Expiration Date V isits Requested Visits Authorized [id number] Authorized 11/14/2024 01/13/2025 3 3 [facility] Summary Purpose Family History No [...] FoundDocuments on File Type Date Recorded Patient Physical Therapist Technician Expl anation ACP-Advance Directive ACP-Power of Imaging Account Manager Latest Code Status on File Code Status Date Activated Date Inactivated Comments Full Code 10/24/2020 7:42 PM Full Code 01/05/2017 7:24 PM 01/06/2017 9:11 PM Documents on File Type Date Recorded Patient Physical Therapist Technician Expl anation Advance Directive(s) 01/04/2022 9:24 PM [...] Code Order Discussed With: Patient and Reyna kylerate Decision Maker Surrogate Decision Maker Name: Sumi [...] mellitus without complication (H[place]) [place] [address] [place] [address] [facility] [address] [place] [address] Scheduling Instructions [facility] - Di[facility] Education [address] [place], [place] [address] Specialty Diagnoses / Procedures Referred By Contact Referred To Contact Physical Medicine & Rehab/PM&R Diagnoses Paraplegia (HCC) History of lumbar fusion Vaishali Pierre DO [address] [place] [address] [facility] Re[facility] [address] [place] [phone] Referral ID Status Reason Start Date Expiration Date V isits Requested Visits Authorized [id number] Authorized 02/10/2024 02/09/2025 1 1 Scheduling Instructions [...] Procedures MR L-SPINE W/+W/O Vaishali Pierre DO [address] [place] [address] [facility] MRI [address] [place] [address] Referral ID Status Reason Start Date Expiration Date V isits Requested Visits Authorized [id number] Authorized 02/10/2024 02/09/2025 1 1 Specialty Diagnoses / Procedures Referred By Contac t Referred To Contact Radiology Diagnoses Paraplegia (HCC) History of lumbar fusion Procedures XR L-SPINE AP+LATERAL 2-3 [place] [address] [facility] DIAGNOSTIC RADIOLOGY [address] [place] [address] Referral ID Status Reason Start Date Expiration Date Visits Re quested Visits Authorized [id number] Closed 02/10/2024 02/09/2025 1 1 Referral ID Status Reason Start Date Expiration Date Visits Re quested Visits Authorized [id number] Closed 02/10/2024 02/09/2025 1 1 Specialty Diagnoses / Procedures Referred By Contac t Referred To Contact Diagnoses Paraplegia (HCC) History of lumbar fusion Sacral insufficiency fracture, initial [place] [address] Referral ID Status Reason Start Date Expiration Date Visits Requested Visits Authorized [id number] Authorized Consultatio n-[facility] 04/06/2024 04/06/2025 1 1 Scheduling Instructions You have been referred to the Spine Center. You will be contacted to schedule your appointment within 24 - 48 hours. If you are not contacted within this time frame please call the Spine Center at [phone] to schedule your appointment. Question Answer Reason [...] 2 OR 3 VIEWS Otis Mejia MD [address] [place] [address] [facility] DIAGNOSTIC RADIOLOGY [address] [place] [address] [place] [address] Referral ID Status Reason Start Date Expiration Date Visits Re quested Visits Authorized [id number] Closed 05/11/2024 05/11/2025 1 1 Specialty Diagnoses / Procedures Referred By Contac t Referred To Contact Radiology Diagnoses Sacral insufficiency fracture, initial encounter Procedures XR SACRUM-COCCYX 3 VIEWS Berna Johnson PA-C [address] [place] [address] [place] [address] [facility] DIAGNOSTIC RADIOLOGY [address] [place] [address] [place] [address] Referral ID Status Reason Start Date Expiration Date Visits Re quested Visits Authorized [id number] Closed 05/10/2024 05/10/2025 1 1 Specialty Diagnoses / Procedures Referred By Contac t Referred To Contact Radiology Diagnoses Sacral insufficiency fracture, initial encounter Procedures MR C-SPINE W/O Otis Mejia MD [address] [place] [address] [facility] MRI [address] [place] [address] Referral ID Status Reason Start Date Expiration Date V isits Requested Visits Authorized [id number] Authorized 05/11/2024 05/11/2025 1 1 Specialty Diagnoses / Procedures Referred By Contac t Referred To Contact Radiology Diagnoses Sacral insufficiency fracture, initial encounter Procedures MR T-SPINE W/O Otis Mejia MD [address] [place] [address] S MRI [address] [place] [address] Referral ID Status Reason Start Date Expiration Date V isits Requested Visits Authorized [id number] Authorized 05/11/2024 05/11/2025 1 1 Specialty Diagnoses / Procedures Referred By Contac t Referred To Contact Radiology Diagnoses Sacral insufficiency fracture, initial encounter Procedures BD BONE DENSITY SURVEY Otis Mejia MD [address] [place] [address] S BONE DENSITY [address] [place] [address] Referral ID Status Reason Start Date Expiration Date V isits Requested Visits Authorized [id number] Authorized 05/11/2024 05/11/2025 1 1 Specialty Diagnoses / Procedures Referred By Contac t Referred To Contact Physical Medicine & Rehab/PM&R Diagnoses Paraplegia (HCC) Reflex neurogenic bladder Faisal Simeon DO [address] [place] [address] [facility] [address] [place] [address] Referral ID Status Reason Start Date Expiration Date Visits Requested Visits Authorized [id number] [facility]20[facility] 06/13/2025 3 3 Scheduling Instructions Please schedule this appointment through [employer] or call the phone number listed above. [...] Services Diagnoses Paraplegia (HCC) Faisal Simeon DO [address] [place] [address] Referral ID Status Reason Start Date Expiration Date Visits Requested Visits Authorized [id number] Authorized [facility] 06/13/2024 06/13/2025 3 3 Scheduling Instructions Please call to schedule an appointment. If you are unable to keep your appointment, please call [phone] at least 24 hours in advance. Question Answer Reason for request: Basic Needs (i.e. medical equipment, housing, food, rent, utilities, transpo), Benefits Applications (i.e. social security, job and family services), Vocational (i.e. [place] [employer], volunteer work), Other Support Services (i.e. medication programs, home accessibility, legal assistance) Other support services requested: Home accessibility Referral ID Status Reason Start Date Expiration Date Visits Re quested Visits Authorized [id number] Closed 05/11/2024 05/11/2025 1 1 Referral ID Status Reason Start Date Expiration Date Visits Re quested Visits Authorized [id number] Closed 05/11/2024 05/11/2025 1 1 Discharge Instructions [...] at most local grocery stores, pharmacies, and [employer]ores. ? If you have any questions about [...] Agent's Name Healthcare Agent's Phone Number 10/24/20 0030 No, patient does not have an advance directive for healthcare treatment -- -- -- -- -- Admitting Physician: Opal Vigil MD PCP: AMBROSIO MONROY DO Discharging Nurse: Discharging Hospital Unit/Room#: MLOZ OR Pool/NONE Discharging Unit Phone Number: Emergency Contact: Extended Emergency Contact Information Primary Emergency Contact: GailLeyla [facility] Relation: Spouse Inventory Administrator needed? No Secondary Emergency Contact: Ronald Reynolds [...] MENTAL STATUS:} IV Access: { ADELINE IV ACCESS:319916037} Nursing Mobility/ADLs: Walking {[facility] DME ADLs:179838734} Transfer {[facility] DME ADLs:779758105} Bathing {[facility] DME ADLs:472516449} Dressing {[facility] DME ADLs:641324156} Toileting {[facility] DME ADLs:846698707} Feeding {[facility] DME ADLs:079237762} Machine Adjuster Helper {P DME ADLs:195074813} Med Delivery { ADELINE MED Delivery:763491276} Wound Care Documentation and Therapy: Elimination: Continence: Bowel: {YES / NO:} Bladder: {YES / NO:} Urinary Catheter: {Urinary Catheter:716042811} Colostomy/Ileostomy/Ileal Conduit: {YES / NO:} Date of Last BM: Intake/Output Summary (Last 24 hours) at 10/24/2020 1333 Last data filed at 10/24/2020 1139 Gross per 24 hour Intake 1000 ml Output 325 ml Net 675 ml No intake/output data recorded. Safety Concerns: { ADELINE Safety Concerns:176097626} Impairments/Disabilities: { ADELINE Impairments/Disabilities:810916297} Nutrition Therapy: Current Nutrition Therapy: { ADELINE Diet List:306608418} Routes of Feeding: {[facility] DME Other Feedings:191587971} Liquids: {[facility] liquid thickness:40903} Daily Fluid Restriction: {P DME Yes amt example:786495169} Last Modified Barium Swallow with Video (Video Swallowing Test): {Done Not Done Date:} Treatments at the Time of Hospital Discharge: Respiratory Treatments: Oxygen Therapy: {Therapy; copd oxygen:65354} Ventilator: { CC Vent List:793207682} Rehab Therapies: {THERAPEUTIC INTERVENTION:5253839645} Weight Bearing Status/Restrictions: {[facility] Weight Bearin} Other Medical Equipment (for information only, NOT a DME order): {EQUIPMENT:405023589} Other Treatments: Patient's personal belongings (please select all that are sent with patient): {[facility] DME Belongings:907094631} RN SIGNATURE: {Esignature:627159380} CASE MANAGEMENT/SOCIAL WORK SECTION Inpatient Status Date: Readmission Risk Assessment Score: Readmission Risk Risk of Unplanned Readmission: 0 Discharging to Facility/ Agency Name: Address: Phone: Fax: Dialysis Facility (if applicable) Name: Address: Dialysis Schedule: Phone: Fax: [employer] signature: {Esignature:142702877} PHYSICIAN SECTION Prognosis: {Prognosis:2787594154} Condition at Discharge: { Patient Condition:064946179} Rehab Potential (if transferring to Rehab): {Prognosis:9314797588} Recommended Labs or Other Treatments After Discharge: Physician Certification: I certify the above information and transfer of Anmol Reynolds is necessaryfor the continuing treatment of the diagnosis listed and that he requires {Admit to Appropriate Level of Care:55482} for {GREATER/LESS:730276535} 30 days. Update Admission H&P: {[facility] DME Changes in HandP:241446863} PHYSICIAN SIGNATURE: * Additional Instructions* Opal Vigil MD - 10/24/2020 Every day change the dressing frequently to keep clean and dry 4 x 4 gauze pads paper tape. May shower 3 days. Avoid soaking or soap for 1 week. Recheck 1 month [id number]. E prescribed T[place]ont 5/325 #28 done documented in this encounter [...] PT/OT Eval * Ye Prado APRN - NETWORK AND THREAT SUPPORT SPECIALIST - 10/25/2020 9:43 AM EST Patient is [...] region, with neurogenic claudication [facility] [address] [place] [address] DISCHARGE SUMMARY PATIENT NAME: ANMOL REYNOLDS : 1960 MED REC NO: [id number] ROOM: [facility] ACCOUNT NO: [id number] ADMIT DATE: 10/24/2020 PROVIDER: Opal Vigil MD DISCH DATE: HOSPITAL COURSE: Left and bilateral L2-L3, L3-L4, L4-L5 micro decompressions. The patient tolerated the procedure well. Wound drain in place, removal the next day. Once ambulatory with bladder control, plan discharge in good condition. DISCHARGE DIAGNOSIS: L2, L3, L4, L5 canal stenosis with neurogenic claudication, improved. DISCHARGE MEDICATION: T[place]ont 5/325, #28. DISCHARGE INSTRUCTIONS: The patient has been instructed to keep the wound clean and dry about three days, avoiding soaking or soap for a week, recheck in a month. If he has any questions or problems, please contact the office. OPAL VIGIL MD [id number] Doc#: [id number] CC: Chief Complaint and Reason for Visit Chief Complaint LABWORK Chief Complaint LABWORK PRISON LAB WORK Chief Complaint LABWORK PRISON LAB WORK PRISON LAB WORK Chief Complaint PRISON LAB WOR K PRISON LAB WORK PRISON LAB WORK LABWORK Chief Complaint LABWORK PRISON LAB WORK LABWORK Chief Complaint LABWORK PRISON LAB WORK LABWORK PRISON LAB WORK Chief Complaint Admit Date PRISON LAB WORK September 20 5:00am PRISON LAB WORK September 29 4 4:00am PRISON LAB WORK October 03 5:00am LABWORK October 10, 2024 5: 00am PRISON LAB WORK November 29 4:45am LABWORK November 30, 2024 5:00am Chief Complaint Admit Date PRISON LAB WORK September 20 4 5:00am PRISON LAB WORK September 29 4:00am PRISON LAB WORK October 03 5:00am LABWORK October 10, 2024 5: 00am PRISON LAB WORK November 29 4:45am LABWORK November 30, 2024 5:00am PRISON LAB WORK December 07, 2024 5: 00am Chief Complaint Admit Date PRISON LAB WORK November 29 4:45am LABWORK November 30, 2024 5:00am PRISON LAB WORK December 07, 2024 5: 00am PRISON LAB WORK January 09, 2025 5: 00am LABWORK February 15, 2025 4:20a m LABOWRK March 01, 2025 5:00a m Chief Complaint Admit Date PRISON LAB WORK November 29 4:45am LABWORK November 30, 2024 5:00am PRISON LAB WORK December 07, 2024 5: 00am PRISON LAB WORK January 09, 2025 5: 00am [...] section and content) DATE CREATED AUTHOR 03/30/2018 [facility] DATE CREATED AUTHOR AUTHOR'S ORGANIZ ATION 03/31/2018 [facility] DATE CREATED AUTHOR AUTHOR'S ORGANIZ ATION 06/22/2018 [facility] DATE CREATED AUTHOR AUTHOR'S ORGANIZ ATION 07/08/2018 [facility] DATE CREATED AUTHOR AUTHOR'S ORGANIZ ATION 10/20/2020 [facility] DATE CREATED AUTHOR AUTHOR'S ORGANIZ ATION 10/27/2020 [facility] DATE CREATED AUTHOR AUTHOR'S ORGANIZ ATION 05/24/2021 [facility] DATE CREATED AUTHOR AUTHOR'S ORGANIZ ATION 10/16/2021 [facility] DATE CREATED AUTHOR AUTHOR'S ORGANIZ ATION 04/25/2022 [facility] DATE CREATED AUTHOR AUTHOR'S ORGANIZ ATION 11/10/2024 [facility] DATE CREATED AUTHOR AUTHOR'S ORGANIZ ATION 03/22/2025 [facility] DATE CREATED AUTHOR AUTHOR'S ORGANIZ ATION 03/27/2025 [facility] DATE CREATED AUTHOR AUTHOR'S ORGANIZ ATION 06/04/2025 [facility] DATE CREATED AUTHOR AUTHOR'S ORGANIZ ATION 07/28/2025 [facility] Reason for Visit (unrecogniz ed section and content) Status Reason Specialty Diagnoses / Procedures Referre d By Contact Referred To Contact Diagnoses L2-3-4-5 STENOSIS Procedures RI LAMINECTOMY,>2 SGMT,LUMBAR LEFT BILATERAL L2-3-4-5 DECOMPRESSION. 2.5 HOURS, C-ARM, POWER RONGEUR. 1ST CASE (PAT AT [facility]) Opal Vigil MD [address] [facility] [address] [place] [address] [facility] Reason Comments Urinary Retention Reason Onset Date Comments new patient appointment 08/06/2023 Reason Onset Date Comments Referral 09/04/2023 Reason Onset Date Comments Referral 08/19/2023 Confirm Receipt of Referral for GYROSCOPE TECHNICIAN Appt Scheduling Reason Comments Pain Pt is here for pain in both legs. He states he has "jolts"of pain in his legs as well as a burning sensation. He was put on Lyrica which he states is not working. Reason Comments New patient, to establish relationship [facility] Specialty Diagnoses / Procedures Referred By Contac t Referred To Contact Radiology Diagnoses Paraplegia (HCC) History of lumbar fusion Procedures MR L-SPINE W/+W/O Vaishali Pierre, [address] [place] [address] [facility] MRI [address] [place] [address] Referral ID Status Reason Start Date Expiration Date Visits Re quested Visits Authorized [id number] Closed 02/10/2024 02/09/2025 1 1 Reason Comments Leg Pain Specialty Diagnoses / Procedures Referred By Contac t Referred To Contact Diagnoses Urinary obstruction Septic shock (HCC) Procedures - Lauryn Hooker MD 75 [facility] [address] [place] [address] [facility] [address] [place] [address] Referral ID Status Reason Start Date Expiration Date Visits Re quested Visits Authorized [id number] 1 1 Reason Onset Date Comments Surgery Scheduling 04/15/2024 Reason Onset Date Comments Reschedule 05/04/2024 Specialty Diagnoses / Procedures Referred By Contac t Referred To Contact Diagnoses Calculus of ureter Procedures RI CYSTOURETHROSCOPY RI LITHOLAPAXY COMP/LG > 2.5 CM RI CYSTO W/URETEROSCOPY W/LITHOTRIPSY RI CYSTO W/INSERT URETERAL STENT CYSTOSCOPY POSSIBLE CYSTOLITHOLAPAXY BILATERAL URETEROSCOPY ASTRID LASER LITHOTRIPSY BILATERAL URETERAL STENT CHANGE Dashawn Grimm MD [address] [place] [address] [address] [facility] [place] [address] Referral ID Status Reason Start Date Expiration Date Visits Re quested Visits Authorized [id number] 1 1 Reason Onset Date Comments Update 05/10/2024 Specialty Diagnoses / Procedures Referred By Contac t Referred To Contact Radiology Diagnoses Sacral insufficiency fracture, initial encounter Procedures XR SACRUM-COCCYX 3 VIEWS Berna Johnson PA-C [address] [facility] [place] [id number] [facility] DIAGNOSTIC RADIOLOGY [address] [facility] [address] [place] [id number] Referral ID Status Reason Start Date Expiration Date Visits Re quested Visits Authorized [id number] Closed 05/10/2024 05/10/2025 1 1 Reason Onset Date Comments Labs Only 05/13/2024 Reason Comments Numbness/tingling New patient, to establish relationship Specialty Diagnoses / Procedures Referred By Contac t Referred To Contact Diagnoses Paraplegia (HCC) History of lumbar fusion Sacral insufficiency fracture, initial encounter Vaishali Pierre DO [address] [place] [address] Referral ID Status Reason Start Date Expiration Date V isits Requested Visits Authorized [id number] [facility] 04/06/2024 04/06/2025 1 1 Reason Comments Other Abnormal labs, blood cultures has been done to pt in facility, gram + cocci. Had back sx 2 yrs ago that resulted to paraplegia, pt is paralyze from waist down. Afebrile, aox4 Specialty Diagnoses / Procedures Referred By Daisy paredes Referred To Contact Diagnoses Positive blood cultures Procedures - Heydi Concepcion MD [address] [place] [address] [facility] Emergency Dept [address] [place] [phone] Referral ID Status Reason Start Date Expiration Date Visits Re quested Visits Authorized [id number] 1 1 Reason Comments New Patient Leg Pain Pt states having jeri n on his paralyzed legs, pain rate 8/10. Reason Comments New patient, to establish relationship Specialty Diagnoses / Procedures Referred By Contact Referred To Contact Physical Medicine & Rehab/PM&R Diagnoses Paraplegia (HCC) History of lumbar fusion Vaishali Pierre DO [address] [place], [place] [phone] [facility] [place] [facility] [address] [place] [phone] Referral ID Status Reason Start Date Expiration Date V isits Requested Visits Authorized [id number] Pending Review 02/10/2024 02/09/2025 1 1 Reason Onset Date Comments Reschedule 06/15/2024 Specialty Diagnoses / Procedures Referred By Daisy paredes Referred To Contact Radiology Diagnoses Sacral insufficiency fracture, initial encounter Procedures MR T-SPINE W/O Otis Mejia MD [address] [place], [place] [phone] [facility] [address] [place], [place] [id number] Referral ID Status Reason Start Date Expiration Date Visits Re quested Visits Authorized [id number] Closed 05/11/2024 05/11/2025 1 1 Reason Comments Evaluation Follow up Reason Comments Osteoporosis Reason Onset Date Comments Appointment 10/25/2024 Reason Onset Date Comments Hospital F/U 02/19/2025 Reason Onset Date Comments Other 03/07/2025 Reason Comments Evaluation Reason Comments Nephrolithiasis Reason Comments Wound Check Sacrum / left ischiu m Reason Comments Wound Infection Per EMS pt was sent here from the [place] for wound infections. Pt has two wound on his sacrum - one at the top of sacrum and one at the bottom of the buttocks. Denies any fever/ CP/FEVER/ SOB. Pt is paralysis. Specialty Diagnoses / Procedures Referred By Contac t Referred To Contact Diagnoses Other acute osteomyelitis, other site (HCC) Procedures m86.18 Georgette Bueno MD [address] [place] [address] Phone: tel: fax: [facility] Medical Unit [address] [place] [phone] Phone: tel: Referral ID Status Reason Start Date Expiration Date Visits Re quested Visits Authorized [id number] 1 1 Reason Onset Date Comments Labs Only 05/24/2025 Missed lab notif ication Reason Comments Follow-up EOT/MRSA, Lt ischaia l osteo Ordered Prescriptions (unrec ognized section and content) [...] or prosecute any alcohol or drug abuse patient.[facility] the event this information is protected by the Federal Confidentiality of Alcohol and Drug Abuse Patient Records regulations: The Federal rules restrict any use of the information to criminally investigate or prosecute any alcohol or drug abuse patient.[facility] the event this information is protected by the Federal Confidentiality of Alcohol and Drug Abuse Patient Records regulations: The Federal rules restrict any use of the information to criminally investigate or prosecute any alcohol or drug abuse patient.[facility] the event this information is protected by the Federal Confidentiality of Alcohol and Drug Abuse Patient Records regulations: The Federal rules restrict any use of the information to criminally investigate or prosecute any alcohol or drug abuse patient.[facility] the event this information is protected by the Federal Confidentiality of Alcohol and Drug Abuse Patient Records regulations: The Federal rules restrict any use of the information to criminally investigate or prosecute any alcohol or drug abuse patient.[facility] Hospital[facility] the event this information is protected by the Federal Confidentiality of Alcohol and Drug Abuse Patient Records regulations: The Federal rules restrict any use of the information to criminally investigate or prosecute any alcohol or drug abuse patient.[facility] the event this information is protected by the Federal Confidentiality of Alcohol and Drug Abuse Patient Records regulations: The Federal rules restrict any use of the information to criminally investigate or prosecute any alcohol or drug abuse patient.[facility] Hospital[facility] the event this information is protected by the Federal Confidentiality of Alcohol and Drug Abuse Patient Records regulations: The Federal rules restrict any use of the information to criminally investigate or prosecute any alcohol or drug abuse patient.[facility] Care Teams (unrecognized sec tion and content) Player Development Manager Relationship Specialty Start Date End Date Ambrosio Monroy, DO [address] [place], [place] [phone] PCP - General Family Practice 05/21/17 Penny Cameron MD [address] [address] Consulting General Surgery 01/17/21 Gayle Scott MD [address] [place] [address] Consulting Infectious Diseases 12/03/21 Ambrosio Monroy, DO [address] [place] [address] [place] [address] Home Care Physician Internal Medicine 12/03/21 Player Development Manager Relationship Specialty Start Date End Date Ambrosio Monroy, DO [address] [place] [address] [place] [address] PCP - General Family Practice 05/21/17 Penny Cameron MD [address] [address] Consulting General Surgery 01/17/21 Gayle Scott MD [address] [place] [phone] Consulting Infectious Diseases 12/03/21 Ambrosio Monroy, DO [address] [place] [address] Home Care Physician Internal Medicine 12/03/21 Player Development Manager Relationship Specialty Start Date End Date Ambrosio Monroy, DO [address] [place] [address] PCP - General Family Practice 05/21/17 Penny Cameron MD [address] [address] Consulting General Surgery 01/17/21 Gayle Scott MD [address] [place] [phone] Consulting Infectious Diseases 12/03/21 Ambrosio Monroy, DO [address] [place] [address] [place] [address] Home Care Physician Internal Medicine 12/03/21 Team Status: Active Member Role Status Dates Dr. Ambrosio Monroy , DO Primary Care Provider Active Team Status: Inactive Member Role Status Dates Dr. Ambrosio Monroy , DO Primary Care Provider Active Tab MURO Attending Provider Active Team Status: Active Member Role Status Dates Dr. Ambrosio Monroy , DO Primary Care Provider Active Tab MURO Attending Provider Active Player Development Manager Relationship Specialty Start Date End Date Ambrosio Monroy DO [address] [place] [address] PCP - General 06/07/17 Team Status: Inactive Member Role Status Dates Dr. Ambrosio Monroy DO Primary Care Provider Active Tab MURO Attending Provider, Referring Provi krish Active Player Development Manager Relationship Specialty Start Date End Date Ambrosio Monroy DO [address] [place] [address] PCP - General 06/07/17 Player Development Manager Relationship Specialty Start Date End Date Ambrosio Monroy DO [address] [place] [address] PCP - General 06/07/17 Player Development Manager Relationship Specialty Start Date End Date Ambrosio Monroy DO [address] [place] [address] PCP - General 06/07/17 Player Development Manager Relationship Specialty Start Date End Date Ambrosio Monroy DO [address] [place] [address] PCP - General 06/07/17 Player Development Manager Relationship Specialty Start Date End Date Juan VaishaliDO [address] [place] [address] Physician Physical Medicine & Rehab/PM&R 03/05/24 Player Development Manager Relationship Specialty Start Date End Date Ambrosio Monroy JamieDO [address] [place] [address] PCP - General 06/07/17 Player Development Manager Relationship Specialty Start Date End Date Yudith Monroybarbie AyalaDO [address] [place] [address] PCP - General 06/07/17 Player Development Manager Relationship Specialty Start Date End Date Yudith Monroybarbie AyalaDO [address] [place] [address] PCP - General 06/07/17 Player Development Manager Relationship Specialty Start Date End Date Macrina PierreedDO [address] [place] [address] Physician Physical Medicine & Rehab/PM&R 03/05/24 Player Development Manager Relationship Specialty Start Date End Date Yduith Monroybarbie AyalaDO [address] [place] [address] PCP - General 06/07/17 Dashawn Grimm MD [address] [address] Surgeon Urology 05/05/24 Player Development Manager Relationship Specialty Start Date End Date Ambrosio Monroy JamieDO [address] [place] [address] PCP - General 06/07/17 Dashawn Grimm MD [address] [address] Surgeon Urology 05/05/24 Player Development Manager Relationship Specialty Start Date End Date Vaishali Pierre [address] [place] [address] Physician Physical Medicine & Rehab/PM&R 03/05/24 Player Development Manager Relationship Specialty Start Date End Date Vaishali Pierre [address] [place] [address] Physician Physical Medicine & Rehab/PM&R 03/05/24 Player Development Manager Relationship Specialty Start Date End Date Ambrosio Monroy DO [address] [place] [address] PCP - General 06/07/17 Dashawn Grimm MD [address] [address] Surgeon Urology 05/05/24 Player Development Manager Relationship Specialty Start Date End Date Vaishali PierreDO [address] [place] [address] Physician Physical Medicine & Rehab/PM&R 03/05/24 Player Development Manager Relationship Specialty Start Date End Date Ambrosio Monroy DO [address] [place] [address] PCP - General 06/07/17 05/18/24 Tab Dupont [address] [place] [address] PCP - General Internal Medicine 05/19/24 Dashawn Grimm MD [address] [place] [address] Surgeon Urology 05/05/24 Player Development Manager Relationship Specialty Start Date End Date Ambrosio Monroy DO [address] [place] [address] PCP - General 06/07/17 05/18/24 Player Development Manager Relationship Specialty Start Date End Date Vaishali Pierre DO [address] [place] [address] Physician Physical Medicine & Rehab/PM&R 03/05/24 Otis Mejia MD [address] [place] [address] Physician Orthopaedic Surgery 06/11/24 Player Development Manager Relationship Specialty Start Date End Date Vaishali Pierre DO [address] [place] [address] Physician Physical Medicine & Rehab/PM&R 03/05/24 Otis Mejia MD [address] [place] [address] Physician Orthopaedic Surgery 06/11/24 Player Development Manager Relationship Specialty Start Date End Date Tab Dupont [address] [place] [phone] PCP - General Internal Medicine 05/19/24 Dashawn Grimm MD [address] [facility] 3 [place] [address] Surgeon Urology 05/05/24 Player Development Manager Relationship Specialty Start Date End Date Vaishali Pierre DO [address] [place] [address] Physician Physical Medicine & Rehab/PM&R 03/05/24 Otis Mejia MD [address] [place] [address] Physician Orthopaedic Surgery 06/11/24 Player Development Manager Relationship Specialty Start Date End Date Vaishali Pierre DO [address] [place] [address] Physician Physical Medicine & Rehab/PM&R 03/05/24 Otis Mejia MD [address] [place] [address] Physician Orthopaedic Surgery 06/11/24 Player Development Manager Relationship Specialty Start Date End Date Vaishali Pierre DO [address] [place] [address] Physician Physical Medicine & Rehab/PM&R 03/05/24 Otis Mejia MD [address] [place] [address] Physician Orthopaedic Surgery 06/11/24 Player Development Manager Relationship Specialty Start Date End Date Vaishali Pierre DO [address] [place] [address] Physician Physical Medicine & Rehab/PM&R 03/05/24 Otis Mejia MD [address] [place] [address] Physician Orthopaedic Surgery 06/11/24 Player Development Manager Relationship Specialty Start Date End Date Vaishali Pierre DO [address] [place] [address] Physician Physical Medicine & Rehab/PM&R 03/05/24 Otis Mejia MD [address] [place] [address] Physician Orthopaedic Surgery 06/11/24 Player Development Manager Relationship Specialty Start Date End Date Juan VaishaliDO [address] [place] [address] Physician Physical Medicine & Rehab/PM&R 03/05/24 Otis Mejia MD [address] [place] [address] Physician Orthopaedic Surgery 06/11/24 Player Development Manager Relationship Specialty Start Date End Date JuanVaishaliDO [address] [place] [address] Physician Physical Medicine & Rehab/PM&R 03/05/24 Otis Mejia MD [address] [place] [address] Physician Orthopaedic Surgery 06/11/24 Giuliano Shultz DO [address] [place] [address] Physician Rheumatology 09/10/24 Faisal Simeon DO [address] [place] [address] Physician Physical Medicine & Rehab/PM&R 09/30/24 Player Development Manager Relationship Specialty Start Date End Date Tab Dupont [facility] [place] [address] PCP - General Internal Medicine 05/19/24 Dashawn Grimm MD 201 [facility] 3 [place] [address] Surgeon Urology 05/05/24 Team Status: Inactive Member [...] December 07, 2024 End: December 07, 2024 Player Development Manager Relationship Specialty Start Date End Date Penny Cameron MD [address] [address] Consulting General Surgery 01/17/21 Gayle Scott MD 224 [facility] [address] [place] [address] Consulting Infectious Diseases 12/03/21 Ambrosio Monroy MD [address] [place] [address] [address] [place] [address] Home Care Provider Internal Medicine 12/03/21 Player Development Manager Relationship Specialty Start Date End Date Tab Dupont [address] [place] [phone] PCP - General Internal Medicine 05/19/24 Dashawn Grimm MD 201 [facility] 3 [place] [address] Surgeon Urology 05/05/24 Player Development Manager Relationship Specialty Start Date End Date Penny Cameron MD [address] [place] [address] Consulting General Surgery 01/17/21 Gayle Scott MD [address] [address] Consulting Infectious Diseases 12/03/21 Ambrosio Monroy MD [address] [place] [address] Home Care Provider Internal Medicine 12/03/21 Player Development Manager Relationship Specialty Start Date End Date Penny Cameron MD [address] [address] Consulting General Surgery 01/17/21 Gayle Scott MD [address] [phone] Consulting Infectious Diseases 12/03/21 Ambrosio Monroy MD [address] [facility] [address] [place] [address] Home Care Provider Internal Medicine 12/03/21 Player Development Manager Relationship Specialty Start Date End Date Tab Dupont [address] [place] [phone] PCP - General Internal Medicine 05/19/24 Dashawn Grimm MD [address] [place] [address] 3 [place], [place] [phone] Surgeon Urology 05/05/24 Player Development Manager Relationship Specialty Start Date End Date Tba Dupont [address] [place] [address] PCP - General Internal Medicine 05/19/24 Dashawn Grimm MD [address] [facility] 3 [place] [address] Surgeon Urology 05/05/24 Player Development Manager Relationship Specialty Start Date End Date Tab Dupont [address] [place] [address] PCP - General Internal Medicine 05/19/24 Dashawn Grimm MD [address] [facility] 3 [place] [address] Surgeon Urology 05/05/24 Player Development Manager Relationship Specialty Start Date End Date Vaishali Pierre DO [address] [place] [address] Physician Physical Medicine & Rehab/PM&R 03/05/24 Otis Mejia MD [address] [place] [address] Physician Orthopaedic Surgery 06/11/24 Giuliano Shultz DO [address] [place] [address] Physician Rheumatology 09/10/24 Faisal Simeon DO [address] [place] [address] Physician Physical Medicine & Rehab/PM&R 09/30/24 Team [...] March 01, 2025 End: March 01, 2025 Player Development Manager Relationship Specialty Start Date End Date Tab Dupont [address] [place] [phone] PCP - General Internal Medicine 05/19/24 Dashawn Grimm MD [address] [address] Surgeon Urology 05/05/24 Team Status: Active Member Role Status Dates Dr. Ambrosio Monroy DO Primary Care Provider Active Start: March 01, 2025 Tab MURO Attending Provider Active Sta rt: March 01, 2025 Player Development Manager Relationship Specialty Start Date End Date Tab Dupont [address] [place] [phone] PCP - General Internal Medicine 05/19/24 Dashawn Grimm MD [address] [address] Surgeon Urology 05/05/24 Player Development Manager Relationship Specialty Start Date End Date Penny Cameron MD [address] [address] Consulting General Surgery 01/17/21 Gayle Scott MD [address] [place] [phone] Consulting Infectious Diseases 12/03/21 Ambrosio Monroy MD 195 [facility] [address] [place], [place] [address] Home Care Provider Internal Medicine 12/03/21 Player Development Manager Relationship Specialty Start Date End Date Tab Dupont MD 3300 [facility] 8 [place] [address] PCP - General Internal Medicine 03/20/25 Penny Cameron MD 970 [facility] [address] [place] [address] Consulting General Surgery 01/17/21 Gayle Scott MD [address] [facility] [address] [place] [phone] Consulting Infectious Diseases 12/03/21 Ambrosio Monroy MD [address] [facility] [address] [place], [place] [address] Home Care Provider Internal Medicine 12/03/21 Player Development Manager Relationship Specialty Start Date End Date Tab Dupont [address] [place] [phone] PCP - General Internal Medicine 05/19/24 Dashawn Grimm MD 201 [facility] 3 [place] [address] Surgeon Urology 05/05/24 Player Development Manager Relationship Specialty Start Date End Date Tab Dupont [address] [place] [id number] PCP - General Internal Medicine 05/19/24 Dashawn Grimm MD [address] [facility] [place] [address] Surgeon Urology 05/05/24 Goals (unrecognized section and [...] Erika Li RN - Reason: Patient/family refused) 904 (Not Given - Provider: Faby Maxwell RN - Reason: Patient/family refused) enoxaparin (Lovenox) syringe 40 mg 40 mg, SubCUTAneous, Every 24 hours scheduled (Daily), First dose on Thu04/15/24 at 0900, Indication of Use: Prophylaxis-DVT/PE, Indications: Prophylaxis of Venous Thromboembolism, On hold since Thu04/16/2024 at 0816 until manually unheld 0900 (Dose [...] Meropenem Med-Surg/Crit Care Init Dosing HARINDER 8, Consulting Utility Forester cl >=50, 3h Mini-Bag Plus bag, Suspected [...] Erika Li, LIBRADO)0336 (Stopped - Provider: Erika Li RN) mirtazapine [...] 3 times daily, First dose on Fabiola 04/14/24 at 2245 0832 (Given - Provider: Allie Griffin RN)1525 (Given - Provider: Allie Griffin, LIBRADO)2106 (Given - Provider: Marino Trevizo RN) 0828 (Given - Provider: Allie Griffin RN)1620 (Given - Provider: Allie Griffin, LIBRADO)2028 (Given - Provider: Erika Li, LIBRADO) 0904 (Given - Provider: Faby Maxwell, RN)1300 (Given - Provider: Faby Maxwell, LIBRADO) sodium [...] sedation for opioid reversal - MUST notify automation machine builder provider immediately after first dose, may give [...] RN)2028 (Given - Provider: Erika Li, LIBRADO) 404 (Given - Provider: Erika Li RN) sodium [...] Merritt, LIBRADO) 0839 (Given - Provider: Bianca Rodgers RN) ceFAZolin in dextrose 4% (Ancef) IVPB 2,000 mg (COMPLETED) 2,000 mg, IntraVENous, Administer over 30 Minutes, Wood Floor Refinisher to O.R., On Fabiola 05/05/24 at 1115, [...] Bianca Rodgers, LIBRADO)1415 (Given - Provider: Bianca Rodgers, LIBRADO)2100 (Canceled Entry - Provider: Automatic Discharge [...] sedation for opioid reversal - MUST notify automation machine builder provider immediately after first dose, may give [...] Martin, RN)1834 (Given - Provider: Dedrick Martin, RN)2203 (Given - Provider: Aleksandra Pinon RN) 0837 (Given - Provider: Elly Cormier RN)1259 (Given - Provider: Elly Cormier RN)1657 (Given - Provider: Elly Cormier RN)2110 (Given - Provider: Bve Carey RN) 0812 (Given - Provider: Elly [...] Benz RN)1101 (Given - Provider: Dedrick Martin, LIBRADO)2051 (Given - Provider: Aleksandra Pinon, RN) 033 (Given - Provider: Aleksandra Pinon, RN) naloxone (Narcan) injection 0.4 mg 0.4 mg, IntraVENous, Every 5 min PRN, opioid reversal, respiratory depression, Starting on Thu05/18/24 at 0051, +++ For RR <10, pinpoint pupils, over sedation for opioid reversal - MUST notify automation machine builder provider immediately after first dose, may give [...] sodium chloride 0.9 % 100 mL IVPB (Add-Steens) 3,000 mg, IntraVENous, at 200 mL/hr, Administer over 30 Minutes, Every 6 hours, First dose on Thu04/26/25 at 1230, ADD-Steens bag, Suspected Indication (Select all that apply): [...] Valarie King RN)0402 (New Bag - Provider: Valaire King RN)0441 (Stopped - Provider: Valarie King RN)1107 (New Bag - Provider: Joann King RN)1139 (Stopped - Provider: Joann King RN)1608 (New Bag - Provider: Joann King RN)1659 (Stopped - Provider: Joann King, LIBRADO)2100 (Canceled [...] 0900 0808 (Given - Provider: Christel Brower LIBRADO) insulin glargine (Lantus) injection 28 Units 28 [...] Brower RN)1704 (Given - Provider: Christel Brower, RN) 0851 (Not Given - Provider: Cheryl Foster RN - Reason: Order parameters not met)1222 (Given - Provider: Cheryl Foster RN)1727 (Given - Provider: Cheryl Foster RN) 0907 (Given - Provider: Joann King, LIBRADO)1321 (Given - Provider: Joann King, LIBRADO)1745 (Given - Provider: Joann King, LIBRADO) Insulin Lispro (Humalog) injection 0-18 Units 0-18 Units, SubCUTAneous, Nightly, First dose on 04/24/25 at 2100, If eating or bolus tube [...] Joann King RN)1023 (Stopped - Provider: Joann King, LIBRADO) meropenem [...] Nightly, First dose on Thu04/22/25 at 2100 2100 (Given - Provider: Valarie [...] Cheryl Foster, LIBRADO)1354 (Given - Provider: Cheryl Foster, RN)1727 (Given - Provider: Cheryl Foster RN)2124 [...] or split. 0807 (Given - Provider: Christel Brower, RN) 0852 (Given - Provider: Cheryl Foster, RN) 0908 (Given - Provider: Joann King, [...] King, RN)1222 (New Bag - Provider: Cheryl Foster RN)1427 (Stopped - Provider: Cheryl Foster RN) 0100 (New Bag - Provider: Valarie King RN)0328 (Stopped - Provider: Valarie King, LIBRADO)1322 (New Bag - Provider: Joann King, LIBRADO)1525 [...] LIBRADO)2124 (Given - Provider: Valarie King, LIBRADO) dextrose [...] BE BASED ON THE PRIMARY CLINICAL RECORDS. [facility] [employer] [facility]. provides no warranty or guarantee of the accuracy or completeness of information in this document.
[2025-07-31 08:56] LABS: Hematocrit 38.0 % (40-54); Hemoglobin 12.5 g/dL (13.0-16.5); Mean Corp Hgb Conc 32.9 g/dL (32-36); Mean Corpuscular Volume 90.0 fL (80-94); Mean Platelet Vol. 10.6 fl (6.2-12.0); Platelet Count 224 K/mm3 (150-450); RBC Distribution Width CV 15.3 % (11.6-14.6); RBC Distribution Width SD 50.7 fl (35.1-43.9); Red Blood Count 4.22 M/mm3 (4.6-6.2); White Blood Count 6.3 K/mm3 (4.4-11.0)
[2025-07-31 09:22] LABS: Anion Gap 8 (5-15); BUN 10 mg/dL (4-19); BUN/Creat Ratio 19.8 RATIO (10-20); Calcium,Total 8.6 mg/dL (7.6-11.0); Carbon Dioxide 21.9 mmol/L (21.0-32.0); Chloride 105 mmol/L (98-108); Glucose 189 mg/dL (70-99); Potassium 4.1 mmol/L (3.3-5.1)
== END ==
LOC: OLS.SANC 05:00
PROVIDERS: PCP Family Medicine; Visit Provider Internal Medicine
DX: E78.5 Hyperlipidemia, unspecified (principal); I82.409 Acute embolism and thrombosis of unspecified deep veins of unspecified lower extremity; F03.90 Unspecified dementia, unspecified severity, without behavioral disturbance, psychotic disturbance, mood disturbance, and anxiety
CPT/HCPCS: 36415; 80048; 85027

== ENCOUNTER → 2025-09-06 05:00 | Outpatient (REF) | payer MEDICAID, SELFPAY ==
--- OUTSIDE RECORDS SUMMARY | 2025-09-06 04:31 | XMS RPT_ITS | CCD ---
Author Organization [facility] Providers Care Film Painter Name Role Phone YARITZA, GALE A Unavailable Unavailable YARITZA, GALE A Unavailable Unavailable ESTERLE, AMBROSIO Unavailable Unavailable YARITZA, GALE A Unavailable Unavailable YARITZA, GALE A Unavailable Unavailable ESTERLE, AMBROSIO Unavailable Unavailable SATYAN, ELLIOT B Unavailable Unavailable SATYAN, ELLIOT B Unavailable Unavailable NO REFERRING DR Unavailable Unavailable MARISSA, JUAN MIGUEL Unavailable Unavailable NO FAMILY PHYSICIAN, 837 Unavailable [...] Care Provider Jorge IRWIN, Dashawn Enriquez Unavailable [phone] Esterle DO, Ambrosio M Primary Care Provider [phone] Tab Dupont Primary Care Provider Otis Mejia MD Unavailable Ying DO, Giuliano Unavailable [phone] Blanco DO, Faisal Unavailable BERNA JOHNSON Referring Unavailable PROVIDER, [...] Dr. Ambrosio Ayala Primary Care Provider [phone] Tab Joshi Attending Provider Unavailab Tab Benson Referring Provider Unavailab syde Costello MD, Dr. Villa Attending Provider Dr. Daisy Garay MD Referring Provider Unava misbah Monroy DO, Dr. Ambrosio Ayala Primary Care Provider [phone] Tab Joshi Attending Provider Unavailab Tab Benson Referring Provider Unavailab Dr. Daisy Li MD Attending Provider Dr. Daisy Garay MD Referring Provider Penny De La Cruz MD Unavailable [phone] Gayle Scott MD Unavailable [phone] Ambrosio Monroy MD Unavailable Eliana BAUGH, Dr. Ambrosio Ayala Primary Care Provider [phone] Tab Joshi Attending Provider Unavailab KRISTINE Foster Referring Unavailable HAMZAH, MILAD Attending Unavailable HAMZAH, MILAD Attending Unavailable Tab Dupont MD Primary Care Provider HOWARD GAMA Admitting Unavail able GAYLE SCOTT Consulting Unavailable CHUY PADILLA Attending Unavailable TAB DUPONTS Primary Care Unavaila ANMOL Johnson Referring Unavail able LUPILLO, ANMOL PINON Attending Unavail able LUPILLO, ANMOL PINON Admitting Unavail able TAB DUPONT Primary Care Unavaila ble KATSAROS, PETER Primary Care Unavailable GEORGETTE BUENO Admitting Unavailable BERHANE MORENO Attending Unavailable JO-ANN ORTIZ Consulting Unavailable SVAAGE CASTILLO Attending Unavailable KIAH PETER Primary Care Unavailable YOANA SOLITARIO Attending Unavailable ADRIANNESAROS PETER Primary Care Unavailable Estersyed BAUGH, Dr. Ambrosio Ayala Primary Care Physician [phone] Tab Joshi Attending Physician Unavaila Tab Case Referring Provider Unavailab Faisal Washburn DO Unavailable Unavailable Esterle, Ambrosio M Primary Care Unavailable [...] Care Unavailable Katsaros OLS, Peter Attending Unavailable Eliana Ambrosio Ayala Primary Care Unavailable Tab Joshi Referring Unavailable Tab Joshi Attending Unavailable Tab Joshi Attending Unavailable Eliana Ambrosio Jamie Primary Care Unavailable Eliana Ambrosio Ayala Primary Care Unavailable Costello JINA, Daisy Referring Unavailable CostelloDaisy Kimble Attending Unavailable ElianaAmbrosio Primary Care Unavailable Tab Joshi Attending Unavailable Yudith Monroya Jamie Primary Care Unavailable Tab Joshi Attending Unavailable Eliana Ambrosio Ayala Primary Care Unavailable Tab Joshi Referring Unavailable Tba Joshi Attending Unavailable Medications Current Medications Medication [...] 250 mg / imipenem 250 mg injection (18 sources) Penem Antibacterial, Renal Dehydropeptidase Inhibitor Start: 03-30-2024 imipenem-cilastati n (PRIMAXIN) 250 MG injection 03/30/2024 Active cyclobenzaprine hydrochloride 10 mg oral tablet (20 sources) Muscle Relaxant Start: 12-17-2021 End: 04-29-2025 cyclobenzaprine (FLEXERIL) 10 MG tablet 12/17/2023 Active Comment on above: Take 1 [...] Inject 825 mg intravenously q [place]. [address] mg 0 01/24/2022 02/25/2022 Active Comment on [...] Active docusate sodium 50 mg / sennosides, chcf 8.6 mg oral tablet (20 sources) Start: [...] Start: 06-18-2017 take 1 capsule by mo [facility] once daily DULoxetine (CYMBALTA) 60 MG extended [...] 01/24/2022 Active take 1 capsule by mo [facility] twice daily gabapentin (NEURONTIN) 300 MG capsule Take 300 mg by mouth 2 times daily 0 Active Comment on above: Take 1 capsule by mo [facility] every 12 hours for 30 days. HYDROmorphone [...] (Anxiety). hyoscyamine sulfate 0.125 mg sublingual tablet (20 sources) Start: 05-02-20 Hyoscyamine Sulfate SL 0.125 [...] 0900 Start: 02-22-2025 inject 20 [IU] by osborn bcutaneous injection once daily in the morning [...] 0900 Start: 04-15-2024 End: 04-20-2024 Start: 04-28-2023 insulin glargi ne (LANTUS SOLOSTAR/BASAGLAR KWIKPEN) 100 UNIT/ML pen Inject 45 Units under the skin. 04/28/2023 Active Start: 04-28-2023 End: 04-29-2025 inject 45 [IU] by subcutaneous injection once daily in the morning insulin glargine (Lantus) 100 UNIT/ML pen Inject 45 Units under the skin every morning. 04/28/2023 04/29/2025 Discontinued (Stop taking at discharge) Start: 01-24-2022 insulin glargi ne (LANTUS SOLOSTAR, [...] MEALS. 04/28/2023 Active Start: 02-26-2022 End: 04-29-2025 insulin lispro (HumaLOG) 100 UNIT/ML injection Inject 0-28 Units under the skin. 02/26/2022 Active Start: 01-24-2022 inject 5 [IU] by sub [...] mouth daily. Suspended Multiple Vitamin (multivitamins) capsule (18 sources) take 1 capsule by mouth once [...] capsule (3 sources) Nitrofuran Antibacterial Start: End: 025 take 1 capsule by mouth twice daily in the evening nitrofurantoin monohydrate macrocrystal (Macrobid) 100 MG capsule Take 1 Capsule by mouth 2 times daily for 5 days. 10 Capsule 09/30/2024 2:36 PM EST 09/30/2024 10/05/2024 Active nortriptyline 50 mg oral capsule (18 sources) Tricyclic Antidepressant take 1 capsule by [...] 04-14-2024 End: 04-20-2024 Start: 12-28-2023 End: 04-28-2025 oxycodone (ROXICODONE) 15 MG immediate release tablet 12/28/2023 Active Start: 01-24-2022 take 1 tablet by [...] for 10 days. pregabalin 200 mg oral radha lynch (20 sources) Start: 04-14-2024 End: 04-20-2024 Start: [...] 80 mg chewable tablet (5 sources) Start: 01-25-20 take 1 tablet by mouth every six hours as needed simethicone, chewable (MYLICON) 80 mg chewable tablet Take 1 tablet by mouth four times daily as needed. 01/24/2022 Active Comment on above: Take 1 tablet by [facility] four times daily as needed. sulfamethoxazole 800 mg / trimethoprim 160 mg oral tablet (11 sources) Dihydrofolate Reductase Inhibitor Antibacterial, Sulfonamide Antimicrobial Start: 03-01-20 End: 04-29-20 take 1 tablet by mouth every twelve hours sulfamethoxazole-tr imethoprim (Bactrim DS) 800-160 MG tablet 1 tablet every 12 hours. 03/01/2025 04/29/2025 Discontinued (Stop taking at discharge) tamsulosin hydrochloride 0.4 mg oral capsule (20 sources) alpha-Adrenergic Savi Start: 11-30-19 tamsulosin (Flomax) 0.4 MG 24 hr capsule 11/30/2023 Active Start: 12-18-2021 End: 04-29-2025 take 1 capsule by mouth once daily tamsulosin (Flomax) 0.4 MG 24 hr capsule Take 1 capsule (0.4 mg) by mouth daily. 04/29/2025 Active Comment on above: Take 1 capsule by mo [facility] once daily. therapeutic multivitamin-minera ls (THERA-M PLUS) 9 mg iron-400 mcg tablet (3 sources) therapeutic multivitamin-land law examiner als (THERA-M PLUS) 9 mg iron-400 [...] sodium chloride 0.9 % 100 mL IVPB (Add-Inglis) (2 sources) Start: 04-26-2025 End: 04-29-2025 take 3000 mg intravenously every six hours 3,000 mg, IntraVENous, at 200 mL/hr, Administer over 30 Minutes, Every 6 hours, First dose on Thu25 at 1230, ADD-Inglis bag, Suspected Indication (Select all that apply): [...] reflux disease take 2 tablets by mo [facility] every eight hours as needed for gastroesophageal [...] on Thu10/24/20 at 1845, Last dose on Fabiola 10/25/20 [...] Comment on above: Take 1 capsule by [facility] twice daily. 0.4 ml enoxaparin sodium 100 [...] mg oral tablet (20 sources) Start: End: 07-26-2 025 take 325 mg by mouth once daily [...] daily at bedtime. 04/28/2023 Active Start: 01-24-2022 mirtazapine (R EMERON) 7.5 MG tablet 04/28/2024 Active Comment on above: Take 1 tablet [...] for gram positive cocci polyethylene glycol 3350 96312 mg powder for oral solution (20 sources) [...] Comment on above: Take 1 Packet by [facility] once daily as needed. Dissolve dose in [...] Take 1 tablet by [facility] once daily. SITagliptin 100 mg oral tablet (3 sources) Dipeptidyl Peptidase 4 Inhibitor Start: 2 take 1 tablet by mouth once daily SITagliptin (JANUVIA) 100 mg tablet Take 1 tablet by mouth once daily. 0 12/18/2021 Active Comment on above: Take 1 tablet by [facility] once daily. 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) drug therapy; Translations: [Other retirement (current) drug therapy] Onset: 5 Episodic Other [...] Onset: 5 02-17-2025 Episodic Residual codes; unclassified (2 sources) Altered mental status, unspecified; Translations: [Altered mental [...] Onset: 05-27-2017 Episodic Other aftercare (1 source) 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; Translations: [Type 2 diabetes mellitus with hyperglycemia, with long-term current use of insulin (HCC)] Onset: 01-04-2022 Episodic Other SUPERVISOR SLATE SPLITTING infection and poliomyelitis (8 sources) Epidural abscess; [...] Test Name Value Interpretation Reference Range Facility Anion gap in Serum or Plasma Ordered By: Tab Dupont on 07-31-2025 Anion gap [Moles/Vol] 8 mmol/L 02-16 [facility] BUN/creatinine ratioOrdered By: Tab Dupont on 07-31-2025 Urea nitrogen/Creatinine [Mass ratio] 19.8 mg/mg 07-24 [facility] Basic Metabolic Profile (BMP )on 07-31-2025 BUN/CRE 19.8 RATIO Normal 07-24 [facility] Comment on above: Order Comment: 301.2 Performed By: #### L 101.9900, L100.0500, L500.4050, [id number] #### [facility] [address] [place], [address] Calcium [Mass/Vol] 8.6 mg/dL Normal 7.6-11.0 [facility] Comment on above: Order Comment: 301.2 Performed By: #### L 101.9900, L100.0500, L500.4050, [id number] #### [facility] [address] [place], [address] Chloride [Moles/Vol] 105 mmol/L Normal 98-108 [facility] Comment on above: Order Comment: 301.2 Performed By: #### L 101.9900, L100.0500, L500.4050, [id number] #### [facility] [address] [place], [address] CO2 [Moles/Vol] 21.9 mmol/L Normal 21.0-32.0 [facility] Comment on above: Order Comment: 301.2 Performed By: #### L 101.9900, L100.0500, L500.4050, [id number] #### [facility] [address] [place], [address] Creatinine [Mass/Vol] 0.49 mg/dL Low 0.70-1.20 [facility] Comment on above: Order Comment: 301.2 Performed By: #### L 101.9900, L100.0500, L500.4050, [id number] #### [facility] [address] [place], [address] GAP 8 Normal 5-15 [facility] Comment on above: Order Comment: 301.2 Performed By: #### L 101.9900, L100.0500, L500.4050, [id number] #### [facility] [address] [place], [address] GFR/1.73 sq M.predicted among non-blacks MDRD (S/P/Bld) [Vol rate/Area] 116 mL/min/{1.73_m2} Normal >60 [facility] Comment on above: Order Comment: 301.2 Result Comment: mL/m in/1.73m2 CKD-EPI Creatinine Equation (2020) Performed By: #### L 101.9900, L100.0500, L500.4050, [id number] #### [facility] [address] [place], [address] Glucose [Mass/Vol] 189 mg/dL High 70-99 [facility] Comment on above: Order Comment: 301.2 Performed By: #### L 101.9900, L100.0500, L500.4050, [id number] #### [facility] [address] [place], [address] Potassium [Moles/Vol] 4.1 mmol/L Normal 3.3-5.1 [facility] Comment on above: Order Comment: 301.2 Performed By: #### L 101.9900, L100.0500, L500.4050, [id number] #### [facility] [address] [place], [address] Sodium [Moles/Vol] 135 mmol/L Normal 133-145 [facility] Comment on above: Order Comment: 301.2 Performed By: #### L 101.9900, L100.0500, L500.4050, [id number] #### [facility] [address] [place], [address] Urea nitrogen [Mass/Vol] 10 mg/dL Normal 4-19 [facility] Comment on above: Order Comment: 301.2 Performed By: #### L 101.9900, L100.0500, L500.4050, [id number] #### [facility] [address] [place], [address] CBC-Complete Blood Cnt No Di ffon 07-31-2025 Erythrocyte distribution width (RBC) [Ratio] 15.3 % High 11.6-14.6 [facility] Comment on above: Order Comment: 301.2 Performed By: #### L 101.9900, L100.0500, L500.4050, [id number] #### [facility] [address] [place], [address] Hematocrit (Bld) [Volume fraction] 38.0 % Low 40-54 [facility] Comment on above: Order Comment: 301.2 Performed By: #### L 101.9900, L100.0500, L500.4050, [id number] #### [facility] [address] [place], [address] Hemoglobin (Bld) [Mass/Vol] 12.5 g/dL Low 13.0-16.5 [facility] Comment on above: Order Comment: 301.2 Performed By: #### L 101.9900, L100.0500, L500.4050, [id number] #### [facility] [address] [place], [address] MCH (RBC) [Entitic mass] 29.6 pg Normal 27.0-32.0 [facility] Comment on above: Order Comment: 301.2 Performed By: #### L 101.9900, L100.0500, L500.4050, [id number] #### [facility] [address] [place], [address] MCHC (RBC) [Mass/Vol] 32.9 g/dL Normal 32-36 [facility] Comment on above: Order Comment: 301.2 Performed By: #### L 101.9900, L100.0500, L500.4050, [id number] #### [facility] [address] [place], [address] MCV (RBC) [Entitic vol] 90.0 fL Normal 80-94 [facility] Comment on above: Order Comment: 301.2 Performed By: #### L 101.9900, L100.0500, L500.4050, [id number] #### [facility] [address] [place], [address] Platelet mean volume (Bld) [Entitic vol] 10.6 fL Normal 6.2-12.0 [facility] Comment on above: Order Comment: 301.2 Performed By: #### L 101.9900, L100.0500, L500.4050, [id number] #### [facility] [address] [place], [address] Platelets (Bld) [#/Vol] 224 10*3/uL Normal 150-450 [facility] Comment on above: Order Comment: 301.2 Performed By: #### L 101.9900, L100.0500, L500.4050, [id number] #### [facility] [address] [place], [address] RBC (Bld) [#/Vol] 4.22 10*6/uL Low 4.6-6.2 [facility] Comment on above: Order Comment: 301.2 Performed By: #### L 101.9900, L100.0500, L500.4050, [id number] #### [facility] [address] [place], [address] RDW SD 50.7 fl High 35.1-43.9 [facility] Comment on above: Order Comment: 301.2 Performed By: #### L 101.9900, L100.0500, L500.4050, [id number] #### [facility] [address] [place], [address] WBC (Bld) [#/Vol] 6.3 10*3/uL Normal 4.4-11.0 [facility] Comment on above: Order Comment: 301.2 Performed By: #### L 101.9900, L100.0500, L500.4050, [id number] #### [facility] [address] [place], [address] Carbon dioxide, total [Moles /volume] in Central venous bloodOrdered By: Tab Dupont on 07-31-2025 CO2 [Moles/Vol] 21.9 mmol/L 21.0-32.0 [facility] Chloride assayOrdered By: Vinh Lehman on 07-31-2025 Chloride [Moles/Vol] 105 mmol/L 98-108 [facility] Erythrocyte distribution wid th ratioOrdered By: Tab Dupont on 07-31-2025 Erythrocyte distribution width (RBC) [Ratio] 15.3 % High 11.6-14.6 [facility] Erythrocyte distribution wid th standard deviationOrdered By: Tab Dupont on 07-31-2025 Erythrocyte distribution width (RBC) [Ratio] 50.7 fl High 35.1-43.9 [facility] Glomerular filtration rate ( GFR) estimation/1.73 sq m using serum, plasma, or whole bOrdered By: Tab Dupont on 07-31-2025 GFR/1.73 sq M.predicted among non-blacks MDRD (S/P/Bld) [Vol rate/Area] 116 mL/min/{1.73_m2} >60 [facility] Comment on above: mL/min/1.73m2 CKD-EP I Creatinine Equation (2020) Hematocrit Auto (Bld) [Volum e fraction]Ordered By: Tab Dupont on 07-31-2025 Hematocrit (Bld) [Volume fraction] 38.0 % Low 40-54 [facility] Hemoglobin measurementOrdere d By: Tab Dupont on 07-31-2025 Hemoglobin (Bld) [Mass/Vol] 12.5 g/dL Low 13.0-16.5 [facility] MCV (mean corpuscular volume ) determinationOrdered By: Tab Dupont on 07-31-2025 MCV (RBC) [Entitic vol] 90.0 fL 80-94 [facility] Mean corpuscular hemoglobin (MCH) determinationOrdered By: Tab Dupont on 07-31-2025 MCH (RBC) [Entitic mass] 29.6 pg 27.0-32.0 [facility] Mean corpuscular hemoglobin concentration (MCHC) determinationOrdered By: Tab Dupont on 07-31-2025 MCHC (RBC) [Mass/Vol] 32.9 g/dL 32-36 [facility] Mean platelet volume determi nationOrdered By: Tab Dupont on 07-31-2025 Platelet mean volume (Bld) [Entitic vol] 10.6 fL 6.2-12.0 [facility] Platelet countOrdered By: Vinh Lehman on 07-31-2025 Platelets (Bld) [#/Vol] 224 10*3/uL 150-450 [facility] Potassium measurement (mass/ volume)Ordered By: Tab Dupont on 07-31-2025 Potassium (Unsp spec) [Mass/Vol] 4.1 mmol/L 3.3-5.1 [facility] RBC Auto (Bld) [#/Vol]Ordere d By: Tab Dupont on 07-31-2025 RBC (Bld) [#/Vol] 4.22 10*6/uL Low 4.6-6.2 [facility] Serum creatinine measurement (mass/volume)Ordered By: Tab Dupont on 07-31-2025 Creatinine [Mass/Vol] 0.49 mg/dL Low 0.70-1.20 [facility] Serum glucose measurement (m ass/volume)Ordered By: Tab Dupont on 07-31-2025 Glucose [Mass/Vol] 189 mg/dL High 70-99 [facility] Serum or plasma calcium randall urement (mass/volume)Ordered By: Tab Dupont on 07-31-2025 Calcium [Mass/Vol] 8.6 mg/dL 7.6-11.0 [facility] Serum or plasma urea nitroge n measurement (mass/volume)Ordered By: Tab Dupont on 07-31-2025 Urea nitrogen [Mass/Vol] 10 mg/dL 01-21 [facility] Sodium levelOrdered By: Omar Dupont on 07-31-2025 Sodium [Moles/Vol] 135 mmol/L 133-145 [facility] White blood cell (WBC) count Ordered By: Tab Dupont on 07-31-2025 WBC (Bld) [#/Vol] 6.3 10*3/uL 4.4-11.0 [facility] Basic Metabolic Profile (BMP )on 07-27-2025 BUN Normal 01-21 [facility] Comment on above: Order Comment: 301.2 Result Comment: UTO X1 Performed By: #### L 101.9900, L100.0500, L500.4050, [id number] #### [facility] [address] [place], [address] BUN/CRE Normal 07-24 [facility] Comment on above: Order Comment: 301.2 Result Comment: UTO X1 Performed By: #### L 101.9900, L100.0500, L500.4050, [id number] #### [facility] [address] [place], [address] Calcium Normal 7.6-11.0 [facility] Comment on above: Order Comment: 301.2 Result Comment: UTO X1 Performed By: #### L 101.9900, L100.0500, L500.4050, [id number] #### [facility] [address] [place], [address] CL Normal 98-108 [facility] Comment on above: Order Comment: 301.2 Result Comment: UTO X1 Performed By: #### L 101.9900, L100.0500, L500.4050, [id number] #### [facility] [address] [place], [address] CO2 Normal 21.0-32.0 [facility] Comment on above: Order Comment: 301.2 Result Comment: UTO X1 Performed By: #### L 101.9900, L100.0500, L500.4050, [id number] #### [facility] [address] [place], [address] CREAT,SERUM Normal 0.70-1.20 [facility] Comment on above: Order Comment: 301.2 Result Comment: UTO X1 Performed By: #### L 101.9900, L100.0500, L500.4050, [id number] #### [facility] [address] [place], [address] eGFR Normal >60 [facility] Comment on above: Order Comment: 301.2 Result Comment: UTO X1 Performed By: #### L 101.9900, L100.0500, L500.4050, [id number] #### [facility] [address] [place], [address] GAP Normal 5-15 [facility] Comment on above: Order Comment: 301.2 Result Comment: UTO X1 Performed By: #### L 101.9900, L100.0500, L500.4050, [id number] #### [facility] [address] [place], [address] GLU Normal 70-99 [facility] Comment on above: Order Comment: 301.2 Result Comment: UTO X1 Performed By: #### L 101.9900, L100.0500, L500.4050, [id number] #### [facility] [address] [place], [address] Potassium Normal 3.3-5.1 [facility] Comment on above: Order Comment: 301.2 Result Comment: UTO X1 Performed By: #### L 101.9900, L100.0500, L500.4050, [id number] #### [facility] [address] [place], [address] Basic Metabolic Profile (BMP) Normal 133-145 [facility] Comment on above: Order Comment: 301.2 Result Comment: UTO X1 Performed By: #### L 101.9900, L100.0500, L500.4050, [id number] #### [facility] [address] [place], [address] CBC-Complete Blood Cnt No Di ffon 07-27-2025 HCT Normal 40-54 [facility] Comment on above: Order Comment: 301.2 Result Comment: UTO X1 Performed By: #### L 101.9900, L100.0500, L500.4050, [id number] #### [facility] [address] [place], [address] HGB Normal 13.0-16.5 [facility] Comment on above: Order Comment: 301.2 Result Comment: UTO X1 Performed By: #### L 101.9900, L100.0500, L500.4050, [id number] #### [facility] [address] [place], [address] MCH Normal 27.0-32.0 [facility] Comment on above: Order Comment: 301.2 Result Comment: UTO X1 Performed By: #### L 101.9900, L100.0500, L500.4050, [id number] #### [facility] [address] [place], [address] MCHC Normal 32-36 [facility] Comment on above: Order Comment: 301.2 Result Comment: UTO X1 Performed By: #### L 101.9900, L100.0500, L500.4050, [id number] #### [facility] [address] [place], [address] MCV Normal 80-94 [facility] Comment on above: Order Comment: 301.2 Result Comment: UTO X1 Performed By: #### L 101.9900, L100.0500, L500.4050, [id number] #### [facility] [address] [place], [address] PLT Normal 150-450 [facility] Comment on above: Order Comment: 301.2 Result Comment: UTO X1 Performed By: #### L 101.9900, L100.0500, L500.4050, L501.6710 #### [facility] [address] [place], [address] RBC Normal 4.6-6.2 [facility] Comment on above: Order Comment: 301.2 Result Comment: UTO X1 Performed By: #### L 101.9900, L100.0500, L500.4050, L501.6710 #### [facility] [address] [place], [address] RDW CV Normal 11.6-14.6 [facility] Comment on above: Order Comment: 301.2 Result Comment: UTO X1 Performed By: #### L 101.9900, L100.0500, L500.4050, L501.6710 #### [facility] [address] [place], [address] RDW SD Normal 35.1-43.9 [facility] Comment on above: Order Comment: 301.2 Result Comment: UTO X1 Performed By: #### L 101.9900, L100.0500, L500.4050, L501.6710 #### [facility] [address] [place], [address] WBC Normal 4.4-11.0 [facility] Comment on above: Order Comment: 301.2 Result Comment: UTO X1 Performed By: #### L 101.9900, L100.0500, L500.4050, L501.6710 #### [facility] [address] [place], [address] Urine Cultureon 07-20-2025 [facility] Urine Culture Urine Culture Morganella morganii sp sibonii [place] Count 80,000-100,000 Morganella morganii sp sibonii: REACTION Ampicillin Islt HARINDER >=32 Ampicillin+Sulbac Islt HARINDER <=2 S Ciprofloxacin Islt HARINDER 2 R Gentamicin Islt HARINDER >=16 R levoFLOXacin Islt HARINDER 2 R Meropenem Islt HARINDER <=0.25 S Nitrofurantoin Islt HARINDER R Pip+Tazo Islt HARINDER <=4 S TMP SMX Islt HARINDER <=20 S Normal [facility] Comment on above: Performed By: #### L 101.9900, L100.0500, L500.4050, L501.6710 #### [facility] [address] [place], [address] Urinalysis, Completeon 07-18 BACTERIA RARE Normal None Seen [facility] Comment on above: Order Comment: 301.2 Performed By: #### L 101.9900, L100.0500, L500.4050, L501.6710 #### [facility] [address] [place], [address] RBC 0-5 SEEN Normal 0-5 [facility] Comment on above: Order Comment: 301.2 Performed By: #### L 101.9900, L100.0500, L500.4050, L501.6710 #### [facility] [address] [place], [address] WBC 5-10 SEEN Normal 0-5 [facility] Comment on above: Order Comment: 301.2 Performed By: #### L 101.9900, L100.0500, L500.4050, L501.6710 #### [facility] [address] [place], [address] EPI,SQUAMOUS 0 SEEN Normal 0-5 [facility] Comment on above: Order Comment: 301.2 Performed By: #### L 101.9900, L100.0500, L500.4050, L501.6710 #### [facility] [address] [place], [address] Mucus Ql (Urine sed) 0 SEEN Normal [facility] Comment on above: Order Comment: 301.2 Performed By: #### L 101.9900, L100.0500, L500.4050, L501.6710 #### [facility] [address] [place], [address] Bilirubin Test strip Ql (U)O rdered By: Tab Dupont on 07-17-2025 Bilirubin Ql (U) Negative Negative [facility] Ketones Test strip Ql (U)Ord ered By: Tab Dupont on 07-17-2025 Ketones Ql (U) Negative Negative [facility] Microscopic analysis of urin e for red blood cells (RBC)Ordered By: Tab Dupont on 07-17-2025 Microscopic analysis of urine for red blood cells (RBC) 0-5 SEEN /hpf 0-5 [facility] Mucus LM Ql (Urine sed)Order ed By: Tab Dupont on 07-17-2025 Mucus Ql (Urine sed) 0 SEEN /hpf [facility] Nitrite Test strip Ql (U)Ord ered By: Tab Dupont on 07-17-2025 Nitrite Ql (U) Negative Negative [facility] Protein Test strip Ql (U)Ord ered By: Tab Dupont on 07-17-2025 Protein Ql (U) 30 mg/dl High Negative [facility] Squamous epithelial cells de tection in urine sediment by light microscopyOrdered By: Tab Dupont on 07-17-2025 Epithelial cells.squamous LM Ql (Urine sed) 0 SEEN /hpf 0-5 [facility] Urine clarityOrdered By: Pet er Kiah on 07-17-2025 Clarity (U) Sl Cloudy Clear [facility] Urine color determinationOrd ered By: Tab Dupont on 07-17-2025 Color (U) Yellow Yellow [facility] Urine cultureOrdered By: Pet er Kiah on 07-17-2025 Bacteria identified Cx Nom (U) Morganella morganii sp sibonii Abnormal [facility] Urine glucose detectionOrder ed By: Tab Dupont on 07-17-2025 Glucose Ql (U) Normal mg/dl Normal [facility] Urine leukocyte esterase det ection by dipstickOrdered By: Tab Dupont on 07-17-2025 Leukocyte esterase Test strip Ql (U) 500 /ul High Negative [facility] Urine pHOrdered By: Tab cordova on 07-17-2025 pH (U) 7.0 [pH] 5.0 - 8.0 [facility] Urine sediment bacteria coun t by microscopy (number/high power field)Ordered By: Tab Dupont on 07-17-2025 Bacteria LM.HPF (Urine sed) [#/Area] RARE /hpf None Seen [facility] Urine specific gravity measu rementOrdered By: Tab Dupont on 07-17-2025 Specific gravity (U) [Rel density] 1.010 1.002-1.030 [facility] Urine urobilinogen measureme ntOrdered By: Tab Dupont on 07-17-2025 Urobilinogen Ql (U) Normal mg/dl Normal [facility] White blood cell countOrdere d By: Tab Dupont on 07-17-2025 White blood cell count 5-10 SEEN /hpf 0-5 [facility] 36on 06-02-2025 36 Pt seen in the offic e for EOT appt. Per cristina Meyeray to honor stop date and pull PICC after last dose. While in office, changed PICC line dressing as it was never changed since insertion on 05/20. Also changed enclave as this was also never changed and red Luer lock was removed from PICC line as it should never be placed on PICC line only on IV tubing. Called [facility] and spoke to nurse Valerie notifying her to honor stop date, pull PICC after last dose. Changed PICC line dressing in office as this was never done since insertion and they are to ensure they don't place red Luer lock on PICC line ever again as those are not meant for the PICC line, only the IV tubing. She stated understanding. Normal [facility] Office Visiton 06-02-2025 Follow-up visit [id number] Anmol Reynolds 1960 M Date Provider Department Center 06/02/2025 [id number] ID None No family history on file Level of Service:63296 DC OFFICE/OUTPATIENT ESTABLISHED MOD MDM 30 MIN Reason for Visit and Comments: Follow-up [080420] - EOT/MRSA, Lt ischaial osteo Normal [facility] Progress Noteon 06-02-2025 Progress Note [facility] INFECTIOUS DIS [address] [facility] [id number] Post-Discharge Hospital Follow Up Date of [...] Surgery duration necessary. Recommend follow up with [facility]- Dr. Kaela Durand who performed I+D [...] raffinosus and MRSA. Patient dishcarged back to [facility] with IV Vancomycin and Unasyn per ID [...] to 06/06. Still on Wound VAC at [facility]. Overall doing better. I have performed a [...] , R (more content not included)... Normal [facility] Anion gap in Serum or Plasma Ordered By: Tab Dupont on 05-29-2025 Anion gap [Moles/Vol] 12 mmol/L 5-15 [facility] BUN/creatinine ratioOrdered By: Tab Dupont on 05-29-2025 Urea nitrogen/Creatinine [Mass ratio] 16.4 mg/mg 10- [facility] Bilirubin, totalOrdered By: Tab Dupont on 05-29-2025 Bilirubin [Mass/Vol] 0.26 mg/dL 0.00-1.30 [facility] CBC-Complete Blood Cnt No Di ffon 05-29-2025 Erythrocyte distribution width (RBC) [Ratio] 15.7 % High 11.6-14.6 [facility] Comment on above: Order Comment: 301.2 0000 Performed By: #### L 501.6710, L101.9900, L501.8820 #### [facility] [address] [place], [address] Hematocrit (Bld) [Volume fraction] 36.8 % Low 40-54 [facility] Comment on above: Order Comment: 301.2 0000 Performed By: #### L 501.6710, L101.9900, L501.8820 #### [facility] [address] [place], [address] Hemoglobin (Bld) [Mass/Vol] 12.1 g/dL Low 13.0-16.5 [facility] Comment on above: Order Comment: 301.2 0000 Performed By: #### L 501.6710, L101.9900, L501.8820 #### [facility] [address] [place], [address] MCH (RBC) [Entitic mass] 30.0 pg Normal 27.0-32.0 [facility] Comment on above: Order Comment: 301.2 0000 Performed By: #### L 501.6710, L101.9900, L501.8820 #### [facility] [address] [place], [address] MCHC (RBC) [Mass/Vol] 32.9 g/dL Normal 32-36 [facility] Comment on above: Order Comment: 301.2 0000 Performed By: #### L 501.6710, L101.9900, L501.8820 #### [facility] [address] [place], [address] MCV (RBC) [Entitic vol] 91.1 fL Normal 80-94 [facility] Comment on above: Order Comment: 301.2 0000 Performed By: #### L 501.6710, L101.9900, L501.8820 #### [facility] [address] [place], [address] Platelet mean volume (Bld) [Entitic vol] 10.6 fL Normal 6.2-12.0 [facility] Comment on above: Order Comment: 301.2 0000 Performed By: #### L 501.6710, L101.9900, L501.8820 #### [facility] [address] [place], [address] Platelets (Bld) [#/Vol] 243 10*3/uL Normal 150-450 [facility] Comment on above: Order Comment: 301.2 0000 Performed By: #### L 501.6710, L101.9900, L501.8820 #### [facility] [address] [place], [address] RBC (Bld) [#/Vol] 4.04 10*6/uL Low 4.6-6.2 [facility] Comment on above: Order Comment: 301.2 0000 Performed By: #### L 501.6710, L101.9900, L501.8820 #### [facility] [address] [place], [address] RDW SD 52.5 fl High 35.1-43.9 [facility] Comment on above: Order Comment: 301.2 0000 Performed By: #### L 501.6710, L101.9900, L501.8820 #### [facility] [address] [place], [address] WBC (Bld) [#/Vol] 6.9 10*3/uL Normal 4.4-11.0 [facility] Comment on above: Order Comment: 301.2 0000 Performed By: #### L 501.6710, L101.9900, L501.8820 #### [facility] [address] [place], [address] CRPon 05-29-2025 C-REACTIVE PROT 20.40 mg/L High 0.0-3.0 [facility] Comment on above: Order Comment: 301.2 0000 Performed By: #### L 501.6710, L101.9900, [id number] #### [facility] [address] [place], [address] Carbon dioxide, total [Moles /volume] in Central venous bloodOrdered By: Tab Dupont on 05-29-2025 CO2 [Moles/Vol] 20.8 mmol/L Low 21.0-32.0 [facility] Chloride assayOrdered By: Vinh Lehman on 05-29-2025 Chloride [Moles/Vol] 107 mmol/L 98-108 [facility] Comprehensive Metabolic Prof ilon 05-29-2025 Albumin [Mass/Vol] 3.2 g/dL Low 3.4-4.8 [facility] Comment on above: Order Comment: 301.2 0000 Performed By: #### L 501.6710, L101.9900, L501.8820 #### [facility] [address] [place], [address] Albumin/Globulin [Mass ratio] 0.9 {ratio} Normal 0.9-2.4 [facility] Comment on above: Order Comment: 301.2 0000 Performed By: #### L 501.6710, L101.9900, L501.8820 #### [facility] [address] [place], [address] ALK PHOS 113 U/L Normal 40-129 [facility] Comment on above: Order Comment: 301.2 0000 Performed By: #### L 501.6710, L101.9900, L501.8820 #### [facility] [address] [place], [address] ALT [Catalytic activity/Vol] 14 U/L Normal <=46 [facility] Comment on above: Order Comment: 301.2 0000 Performed By: #### L 501.6710, L101.9900, L501.8820 #### [facility] [address] [place], [address] AST [Catalytic activity/Vol] 18 U/L Normal <=37 [facility] Comment on above: Order Comment: 301.2 0000 Performed By: #### L 501.6710, L101.9900, L501.8820 #### [facility] [address] [place], [address] Bilirubin [Mass/Vol] 0.26 mg/dL Normal 0.00-1.30 [facility] Comment on above: Order Comment: 301.2 0000 Performed By: #### L 501.6710, L101.9900, L501.8820 #### [facility] [address] [place], [address] BUN/CRE 16.4 RATIO Normal 10-20 [facility] Comment on above: Order Comment: 301.2 0000 Performed By: #### L 501.6710, L101.9900, L501.8820 #### [facility] [address] [place], [address] Calcium [Mass/Vol] 8.9 mg/dL Normal 7.6-11.0 [facility] Comment on above: Order Comment: 301.2 0000 Performed By: #### L 501.6710, L101.9900, L501.8820 #### [facility] [address] [place], [address] Chloride [Moles/Vol] 107 mmol/L Normal 98-108 [facility] Comment on above: Order Comment: 301.2 0000 Performed By: #### L 501.6710, L101.9900, L501.8820 #### [facility] [address] [place], [address] CO2 [Moles/Vol] 20.8 mmol/L Low 21.0-32.0 [facility] Comment on above: Order Comment: 301.2 0000 Performed By: #### L 501.6710, L101.9900, L501.8820 #### [facility] [address] [place], [address] Creatinine [Mass/Vol] 0.45 mg/dL Low 0.70-1.20 [facility] Comment on above: Order Comment: 301.2 0000 Performed By: #### L 501.6710, L101.9900, L501.8820 #### [facility] [address] [place], [address] GAP 12 Normal 5-15 [facility] Comment on above: Order Comment: 301.2 0000 Performed By: #### L 501.6710, L101.9900, L501.8820 #### [facility] [address] [place], [address] GFR/1.73 sq M.predicted among non-blacks MDRD (S/P/Bld) [Vol rate/Area] 119 mL/min/{1.73_m2} Normal >60 [facility] Comment on above: Order Comment: 301.2 0000 Result Comment: mL/m in/1.73m2 CKD-EPI Creatinine Equation (2020) Performed By: #### L 501.6710, L101.9900, L501.8820 #### [facility] [address] [place], [address] Globulin (S) [Mass/Vol] 3.6 g/dL Normal 2.2-4.2 [facility] Comment on above: Order Comment: 301.2 0000 Performed By: #### L 501.6710, L101.9900, L501.8820 #### [facility] [address] [place], [address] Glucose [Mass/Vol] 91 mg/dL Normal 70-99 [facility] Comment on above: Order Comment: 301.2 0000 Performed By: #### L 501.6710, L101.9900, L501.8820 #### [facility] [address] [place], [address] Potassium [Moles/Vol] 3.6 mmol/L Normal 3.3-5.1 [facility] Comment on above: Order Comment: 301.2 0000 Performed By: #### L 501.6710, L101.9900, L501.8820 #### [facility] [address] [place], [address] Sodium [Moles/Vol] 140 mmol/L Normal 133-145 [facility] Comment on above: Order Comment: 301.2 0000 Performed By: #### L 501.6710, L101.9900, L501.8820 #### [facility] [address] [place], [address] T PROT 6.8 g/dL Normal 5.9-8.4 [facility] Comment on above: Order Comment: 301.2 0000 Performed By: #### L 501.6710, L101.9900, L501.8820 #### [facility] [address] [place], [address] Urea nitrogen [Mass/Vol] 7 mg/dL Normal 4-19 [facility] Comment on above: Order Comment: 301.2 0000 Performed By: #### L 501.6710, L101.9900, L501.8820 #### [facility] [address] [place], [address] Erythrocyte distribution wid th ratioOrdered By: Tab Dupont on 05-29-2025 Erythrocyte distribution width (RBC) [Ratio] 15.7 % High 11.6-14.6 [facility] Erythrocyte distribution wid th standard deviationOrdered By: Tab Dupont on 05-29-2025 Erythrocyte distribution width (RBC) [Ratio] 52.5 fl High 35.1-43.9 [facility] Glomerular filtration rate ( GFR) estimation/1.73 sq m using serum, plasma, or whole bOrdered By: Tab Dupont on 05-29-2025 GFR/1.73 sq M.predicted among non-blacks MDRD (S/P/Bld) [Vol rate/Area] 119 mL/min/{1.73_m2} >60 [facility] Comment on above: mL/min/1.73m2 CKD-EP I Creatinine Equation (2020) Hematocrit Auto (Bld) [Volum e fraction]Ordered By: Tab Dupont on 05-29-2025 Hematocrit (Bld) [Volume fraction] 36.8 % Low 40-54 [facility] Hemoglobin measurementOrdere d By: Tab Dupont on 05-29-2025 Hemoglobin (Bld) [Mass/Vol] 12.1 g/dL Low 13.0-16.5 [facility] - Chemistry and C hemistry - challengeOrdered By: Tab Dupont on 05-29-2025 AST [Catalytic activity/Vol] 18 U/L <38 [facility] MCV (mean corpuscular volume ) determinationOrdered By: Tab Dupont on 05-29-2025 MCV (RBC) [Entitic vol] 91.1 fL 80-94 [facility] Mean corpuscular hemoglobin (MCH) determinationOrdered By: Tab Dupont on 05-29-2025 MCH (RBC) [Entitic mass] 30.0 pg 27.0-32.0 [facility] Mean corpuscular hemoglobin concentration (MCHC) determinationOrdered By: Tab Dupont on 05-29-2025 MCHC (RBC) [Mass/Vol] 32.9 g/dL 32-36 [facility] Mean platelet volume determi nationOrdered By: Tab Dupont on 05-29-2025 Platelet mean volume (Bld) [Entitic vol] 10.6 fL 6.2-12.0 [facility] Platelet countOrdered By: Vinh Lehman on 05-29-2025 Platelets (Bld) [#/Vol] 243 10*3/uL 150-450 [facility] Potassium measurement (mass/ volume)Ordered By: Tab Dupont on 05-29-2025 Potassium (Unsp spec) [Mass/Vol] 3.6 mmol/L 3.3-5.1 [facility] RBC Auto (Bld) [#/Vol]Ordere d By: Tab uDpont on 05-29-2025 RBC (Bld) [#/Vol] 4.04 10*6/uL Low 4.6-6.2 [facility] Serum creatinine measurement (mass/volume)Ordered By: Tab Dupont on 05-29-2025 Creatinine [Mass/Vol] 0.45 mg/dL Low 0.70-1.20 [facility] Serum globulin measurementOr dered By: Tab Dupont on 05-29-2025 Globulin (S) [Mass/Vol] 3.6 g/dL 2.2-4.2 [facility] Serum glucose measurement (m ass/volume)Ordered By: Tab Dupont on 05-29-2025 Glucose [Mass/Vol] 91 mg/dL 70-99 [facility] Serum or plasma C reactive p rotein measurement (mass/volume)Ordered By: Tab Dupont on 05-29-2025 CRP [Mass/Vol] 20.40 mg/L High 0.0-3.0 [facility] Serum or plasma alanine miller otransferase (ALT) measurementOrdered By: Tab Dupont on 05-29-2025 ALT [Catalytic activity/Vol] 14 U/L <47 [facility] Serum or plasma albumin randall urement (mass/volume)Ordered By: Tab Dupont on 05-29-2025 Albumin [Mass/Vol] 3.2 g/dL Low 3.4-4.8 [facility] Serum or plasma albumin/glob ulin mass ratioOrdered By: Tab Dupont on 05-29-2025 Albumin/Globulin [Mass ratio] 0.9 {ratio} 0.9-2.4 [facility] Serum or plasma alkaline nallely sphatase measurementOrdered By: Tab Dupont on 05-29-2025 ALP [Catalytic activity/Vol] 113 U/L 40-129 [facility] Serum or plasma calcium randall urement (mass/volume)Ordered By: Tab Dupont on 05-29-2025 Calcium [Mass/Vol] 8.9 mg/dL 7.6-11.0 [facility] Serum or plasma urea nitroge n measurement (mass/volume)Ordered By: Tab Dupont on 05-29-2025 Urea nitrogen [Mass/Vol] 7 mg/dL 4-19 [facility] Sodium levelOrdered By: Omar Dupont on 05-29-2025 Sodium [Moles/Vol] 140 mmol/L 133-145 [facility] Total proteinOrdered By: Regino Dupont on 05-29-2025 Protein [Mass/Vol] 6.8 g/dL 5.9-8.4 [facility] Trough vancomycin levelOrder ed By: Tab Dupont on 05-29-2025 Vancomycin trough [Mass/Vol] 18.5 ug/mL High 5.0-15.0 [facility] Comment on above: Recommended goal tro ugh ranges are generally 10-15 mcg/ml for less severe/complicated infections such as cellulitis or UTI and 15-20 mcg/ml for more severe/complicated infections such as bacteremia/sepsis, osteomyelitis, pneumonia or meningitis. Goal trough ranges should take into account indication, patient-specific factors and organism HARINDER.VANCOMYCIN STANDARED DRUG THERAPY TROUGH LEVEL: 5.0 - 15.0 mg/L VANCOMYCIN HIGH INTENSITY THERAPY TROUGH LEVEL: 15.0 - 20.0 mg/L High Intensity therapy recommended for serious lifethreatening infections include:- Vpnkhdxpdn-Hzdrwhajfkvx-Ednjfhuxt (Ventilator/Healtcare Associated)-Sepsis PLEASE CONTACT PHARMACY SERVICES (#[id number]) FOR INTERPRETATIONOF RESULTS. Vancomycin, Trough Levelon 0 05-29-2025 VANCO, TROUGH 18.5 ug/mL High 5.0-15.0 [facility] Comment on above: Order Comment: 301.2 [...] (Ventilator/Healtcare Associated) -Sepsis PLEASE CONTACT PHARMACY SERVICES (#[id number]) FOR INTERPRETATION OF RESULTS. Performed By: #### L 501.6710, L101.9900, L501.8820 #### [facility] [address] [place], [place], [id number] White blood cell (WBC) count Ordered By: Tab Dupont on 05-29-2025 WBC (Bld) [#/Vol] 6.9 10*3/uL 4.4-11.0 [facility] 36on 05-25-2025 36 Received a call from nurse Nikki [phone] stating Vanc tr this week is 17 and asking if IV Vanc can be hung. Told her yes, hang Vanc as trough is within therapeutic range. Per Nikki, they will obtain another Vanc level on 05/29. Normal [facility] CRPon 05-25-2025 C-REACTIVE PROT 48.60 mg/L High 0.0-3.0 [facility] Comment on above: Order Comment: 301.2 Performed By: #### L 501.6710, L101.9900, L501.8820 #### [facility] [address] [place], [place], [address] Erythrocyte Sed Rateon 05-25 SED RATE 57 mm/hr High 0-20 [facility] Comment on above: Order Comment: 301.2 Performed By: #### L 501.6710, L101.9900, L501.8820 #### [facility] [place], [address] Erythrocyte sedimentation ra teOrdered By: Tab Dupont on 05-25-2025 ESR (Bld) [Velocity] 57 mm/h High 0-20 [facility] Serum or plasma C reactive p rotein measurement (mass/volume)Ordered By: Tab Dupont on 05-25-2025 CRP [Mass/Vol] 48.60 mg/L High 0.0-3.0 [facility] Trough vancomycin levelOrder ed By: Tab Dupont on 05-25-2025 Vancomycin trough [Mass/Vol] 17.3 ug/mL High 5.0-15.0 [facility] Comment on above: Recommended goal tro ugh ranges are generally 10-15 mcg/ml for less severe/complicated infections such as cellulitis or UTI and 15-20 mcg/ml for more severe/complicated infections such as bacteremia/sepsis, osteomyelitis, pneumonia or meningitis. Goal trough ranges should take into account indication, patient-specific factors and organism HARINDER.VANCOMYCIN STANDARED DRUG THERAPY TROUGH LEVEL: 5.0 - 15.0 mg/L VANCOMYCIN HIGH INTENSITY THERAPY TROUGH LEVEL: 15.0 - 20.0 mg/L High Intensity therapy recommended for serious lifethreatening infections include:- Envnejntzo-Rjillbdjslzd-Csvmkaljm (Ventilator/Healtcare Associated)-Sepsis PLEASE CONTACT PHARMACY SERVICES (#[id number]) FOR INTERPRETATIONOF RESULTS. Vancomycin, Trough Levelon 05-25-2025 VANCO, TROUGH 17.3 ug/mL High 5.0-15.0 [facility] Comment on above: Order Comment: 301.2 [...] (Ventilator/Healtcare Associated) -Sepsis PLEASE CONTACT PHARMACY SERVICES (#[id number]) FOR INTERPRETATION OF RESULTS. Performed By: #### L 501.6710, L101.9900, L501.8820 #### [facility] [address] [place], [place], [id number] 36on 05-24-2025 36 Received a call from Clement nurse at [facility]. She stated the labs that were [...] until this weeks labs are received. Normal [facility] Anion gap in Serum or Plasma Ordered By: Tab Dupont on 05-22-2025 Anion gap [Moles/Vol] 12 mmol/L 5-15 [facility] BUN/creatinine ratioOrdered By: Tab Dupont on 05-22-2025 Urea nitrogen/Creatinine [Mass ratio] 15.9 mg/mg - [facility] Bilirubin, totalOrdered By: Tab Dupont on 05-22-2025 Bilirubin [Mass/Vol] 0.31 mg/dL 0.00-1.30 [facility] CBC-Complete Blood Cnt No Di ffon 05-22-2025 Erythrocyte distribution width (RBC) [Ratio] 16.3 % High 11.6-14.6 [facility] Comment on above: Order Comment: 301.2 Performed By: #### L 101.9900, L100.0500, L500.4050, L501.6710 #### [facility] [address] [place], [place], [address] Hematocrit (Bld) [Volume fraction] 38.6 % Low 40-54 [facility] Comment on above: Order Comment: 301.2 Performed By: #### L 101.9900, L100.0500, L500.4050, L501.6710 #### [facility] [address] [place], [address] Hemoglobin (Bld) [Mass/Vol] 12.2 g/dL Low 13.0-16.5 [facility] Comment on above: Order Comment: 301.2 Performed By: #### L 101.9900, L100.0500, L500.4050, [id number] #### [facility] [address] [place], [address] MCH (RBC) [Entitic mass] 29.1 pg Normal 27.0-32.0 [facility] Comment on above: Order Comment: 301.2 Performed By: #### L 101.9900, L100.0500, L500.4050, L501.6710 #### [facility] [address] [place], [address] MCHC (RBC) [Mass/Vol] 31.6 g/dL Low 32-36 [facility] Comment on above: Order Comment: 301.2 Performed By: #### L 101.9900, L100.0500, L500.4050, L501.6710 #### [facility] [address] [place], [address] MCV (RBC) [Entitic vol] 92.1 fL Normal 80-94 [facility] Comment on above: Order Comment: 301.2 Performed By: #### L 101.9900, L100.0500, L500.4050, [id number] #### [facility] [address] [place], [address] Platelet mean volume (Bld) [Entitic vol] 11.1 fL Normal 6.2-12.0 [facility] Comment on above: Order Comment: 301.2 Performed By: #### L 101.9900, L100.0500, L500.4050, L501.6710 #### [facility] [address] [place], [address] Platelets (Bld) [#/Vol] 226 10*3/uL Normal 150-450 [facility] Comment on above: Order Comment: 301.2 Performed By: #### L 101.9900, L100.0500, L500.4050, [id number] #### [facility] [address] [place], [address] RBC (Bld) [#/Vol] 4.19 10*6/uL Low 4.6-6.2 [facility] Comment on above: Order Comment: 301.2 Performed By: #### L 101.9900, L100.0500, L500.4050, [id number] #### [facility] [address] [place], [address] RDW SD 55.2 fl High 35.1-43.9 [facility] Comment on above: Order Comment: 301.2 Performed By: #### L 101.9900, L100.0500, L500.4050, [id number] #### [facility] [address] [place], [address] WBC (Bld) [#/Vol] 7.5 10*3/uL Normal 4.4-11.0 [facility] Comment on above: Order Comment: 301.2 Performed By: #### L 101.9900, L100.0500, L500.4050, [id number] #### [facility] [address] [place], [address] Carbon dioxide, total [Moles /volume] in Central venous bloodOrdered By: Tab Dupont on 05-22-2025 CO2 [Moles/Vol] 20.9 mmol/L Low 21.0-32.0 [facility] Chloride assayOrdered By: Vinh Lehman on 05-22-2025 Chloride [Moles/Vol] 106 mmol/L 98-108 [facility] Comprehensive Metabolic Prof ilon 05-22-2025 Albumin [Mass/Vol] 3.1 g/dL Low 3.4-4.8 [facility] Comment on above: Order Comment: 301.2 Performed By: #### L 101.9900, L100.0500, L500.4050, L501.6710 #### [facility] [address] [place], [address] Albumin/Globulin [Mass ratio] 0.9 {ratio} Normal 0.9-2.4 [facility] Comment on above: Order Comment: 301.2 Performed By: #### L 101.9900, L100.0500, L500.4050, [id number] #### [facility] [address] [place], [address] ALK PHOS 124 U/L Normal 40-129 [facility] Comment on above: Order Comment: 301.2 Performed By: #### L 101.9900, L100.0500, L500.4050, [id number] #### [facility] [address] [place], [address] ALT [Catalytic activity/Vol] 15 U/L Normal <=46 [facility] Comment on above: Order Comment: 301.2 Performed By: #### L 101.9900, L100.0500, L500.4050, [id number] #### [facility] [address] [place], [address] AST [Catalytic activity/Vol] 17 U/L Normal <=37 [facility] Comment on above: Order Comment: 301.2 Performed By: #### L 101.9900, L100.0500, L500.4050, [id number] #### [facility] [address] [place], [address] Bilirubin [Mass/Vol] 0.31 mg/dL Normal 0.00-1.30 [facility] Comment on above: Order Comment: 301.2 Performed By: #### L 101.9900, L100.0500, L500.4050, [id number] #### [facility] [address] [place], [address] BUN/CRE 15.9 RATIO Normal 10-20 [facility] Comment on above: Order Comment: 301.2 Performed By: #### L 101.9900, L100.0500, L500.4050, [id number] #### [facility] [address] [place], [address] Calcium [Mass/Vol] 8.7 mg/dL Normal 7.6-11.0 [facility] Comment on above: Order Comment: 301.2 Performed By: #### L 101.9900, L100.0500, L500.4050, [id number] #### [facility] [address] [place], [address] Chloride [Moles/Vol] 106 mmol/L Normal 98-108 [facility] Comment on above: Order Comment: 301.2 Performed By: #### L 101.9900, L100.0500, L500.4050, [id number] #### [facility] [address] [place], [address] CO2 [Moles/Vol] 20.9 mmol/L Low 21.0-32.0 [facility] Comment on above: Order Comment: 301.2 Performed By: #### L 101.9900, L100.0500, L500.4050, [id number] #### [facility] [address] [place], [address] Creatinine [Mass/Vol] 0.50 mg/dL Low 0.70-1.20 [facility] Comment on above: Order Comment: 301.2 Performed By: #### L 101.9900, L100.0500, L500.4050, [id number] #### [facility] [address] [place], [address] GAP 12 Normal 5-15 [facility] Comment on above: Order Comment: 301.2 Performed By: #### L 101.9900, L100.0500, L500.4050, L501.6710 #### [facility] [address] [place], [address] GFR/1.73 sq M.predicted among non-blacks MDRD (S/P/Bld) [Vol rate/Area] 114 mL/min/{1.73_m2} Normal >60 [facility] Comment on above: Order Comment: 301.2 Result Comment: mL/m in/1.73m2 CKD-EPI Creatinine Equation (2020) Performed By: #### L 101.9900, L100.0500, L500.4050, L501.6710 #### [facility] [address] [place], [address] Globulin (S) [Mass/Vol] 3.6 g/dL Normal 2.2-4.2 [facility] Comment on above: Order Comment: 301.2 Performed By: #### L 101.9900, L100.0500, L500.4050, [id number] #### [facility] [address] [place], [address] Glucose [Mass/Vol] 109 mg/dL High 70-99 [facility] Comment on above: Order Comment: 301.2 Performed By: #### L 101.9900, L100.0500, L500.4050, [id number] #### [facility] [address] [place], [address] Potassium [Moles/Vol] 3.8 mmol/L Normal 3.3-5.1 [facility] Comment on above: Order Comment: 301.2 Performed By: #### L 101.9900, L100.0500, L500.4050, [id number] #### [facility] [address] [place], [address] Sodium [Moles/Vol] 139 mmol/L Normal 133-145 [facility] Comment on above: Order Comment: 301.2 Performed By: #### L 101.9900, L100.0500, L500.4050, L501.6710 #### [facility] [address] [place], [address] T PROT 6.7 g/dL Normal 5.9-8.4 [facility] Comment on above: Order Comment: 301.2 Performed By: #### L 101.9900, L100.0500, L500.4050, [id number] #### [facility] [address] [place], [address] Urea nitrogen [Mass/Vol] 8 mg/dL Normal 4-19 [facility] Comment on above: Order Comment: 301.2 Performed By: #### L 101.9900, L100.0500, L500.4050, L501.6710 #### [facility] [address] [place], [address] Erythrocyte distribution wid th ratioOrdered By: Tab Dupont on 05-22-2025 Erythrocyte distribution width (RBC) [Ratio] 16.3 % High 11.6-14.6 [facility] Erythrocyte distribution wid th standard deviationOrdered By: Tab Dupont on 05-22-2025 Erythrocyte distribution width (RBC) [Ratio] 55.2 fl High 35.1-43.9 [facility] Glomerular filtration rate ( GFR) estimation/1.73 sq m using serum, plasma, or whole bOrdered By: Tab Dupont on 05-22-2025 GFR/1.73 sq M.predicted among non-blacks MDRD (S/P/Bld) [Vol rate/Area] 114 mL/min/{1.73_m2} >60 [facility] Comment on above: mL/min/1.73m2 CKD-EP I Creatinine Equation (2020) Hematocrit Auto (Bld) [Volum e fraction]Ordered By: Tab Dupont on 05-22-2025 Hematocrit (Bld) [Volume fraction] 38.6 % Low 40-54 [facility] Hemoglobin measurementOrdere d By: Tab Dupont on 05-22-2025 Hemoglobin (Bld) [Mass/Vol] 12.2 g/dL Low 13.0-16.5 [facility] - Chemistry and C hemistry - challengeOrdered By: Tab Dupont on 05-22-2025 AST [Catalytic activity/Vol] 17 U/L <38 [facility] MCV (mean corpuscular volume ) determinationOrdered By: Tab Dupont on 05-22-2025 MCV (RBC) [Entitic vol] 92.1 fL 80-94 [facility] Mean corpuscular hemoglobin (MCH) determinationOrdered By: Tab Dupont on 05-22-2025 MCH (RBC) [Entitic mass] 29.1 pg 27.0-32.0 [facility] Mean corpuscular hemoglobin concentration (MCHC) determinationOrdered By: Tab Dupont on 05-22-2025 MCHC (RBC) [Mass/Vol] 31.6 g/dL Low 32-36 [facility] Mean platelet volume determi nationOrdered By: Tab Dupont on 05-22-2025 Platelet mean volume (Bld) [Entitic vol] 11.1 fL 6.2-12.0 [facility] Platelet countOrdered By: Vinh Lehman on 05-22-2025 Platelets (Bld) [#/Vol] 226 10*3/uL 150-450 [facility] Potassium measurement (mass/ volume)Ordered By: Tab Dupont on 05-22-2025 Potassium (Unsp spec) [Mass/Vol] 3.8 mmol/L 3.3-5.1 [facility] RBC Auto (Bld) [#/Vol]Ordere d By: Tab Dupont on 05-22-2025 RBC (Bld) [#/Vol] 4.19 10*6/uL Low 4.6-6.2 [facility] Serum creatinine measurement (mass/volume)Ordered By: Tab Dupont on 05-22-2025 Creatinine [Mass/Vol] 0.50 mg/dL Low 0.70-1.20 [facility] Serum globulin measurementOr dered By: Tab Dupont on 05-22-2025 Globulin (S) [Mass/Vol] 3.6 g/dL 2.2-4.2 [facility] Serum glucose measurement (m ass/volume)Ordered By: Tab Dupont on 05-22-2025 Glucose [Mass/Vol] 109 mg/dL High 70-99 [facility] Serum or plasma alanine miller otransferase (ALT) measurementOrdered By: Tab Dupont on 05-22-2025 ALT [Catalytic activity/Vol] 15 U/L <47 [facility] Serum or plasma albumin randall urement (mass/volume)Ordered By: Tab Dupont on 05-22-2025 Albumin [Mass/Vol] 3.1 g/dL Low 3.4-4.8 [facility] Serum or plasma albumin/glob ulin mass ratioOrdered By: Tab Dupont on 05-22-2025 Albumin/Globulin [Mass ratio] 0.9 {ratio} 0.9-2.4 [facility] Serum or plasma alkaline nallely sphatase measurementOrdered By: Tab Dupont on 05-22-2025 ALP [Catalytic activity/Vol] 124 U/L 40-129 [facility] Serum or plasma calcium randall urement (mass/volume)Ordered By: Tab Dupont on 05-22-2025 Calcium [Mass/Vol] 8.7 mg/dL 7.6-11.0 [facility] Serum or plasma urea nitroge n measurement (mass/volume)Ordered By: Tab Dupont on 05-22-2025 Urea nitrogen [Mass/Vol] 8 mg/dL 4-19 [facility] Sodium levelOrdered By: Omar Dupont on 05-22-2025 Sodium [Moles/Vol] 139 mmol/L 133-145 [facility] Total proteinOrdered By: Regino Dupont on 05-22-2025 Protein [Mass/Vol] 6.7 g/dL 5.9-8.4 [facility] White blood cell (WBC) count Ordered By: Tab Dupont on 05-22-2025 WBC (Bld) [#/Vol] 7.5 10*3/uL 4.4-11.0 [facility] Anion gap in Serum or Plasma Ordered By: Tab Dupont on 05-15-2025 Anion gap [Moles/Vol] 12 mmol/L 5-15 [facility] BUN/creatinine ratioOrdered By: Tab Dupont on 05-15-2025 Urea nitrogen/Creatinine [Mass ratio] 17.5 mg/mg 10-20 [facility] Bilirubin, totalOrdered By: Tab Dupont on 05-15-2025 Bilirubin [Mass/Vol] 0.43 mg/dL 0.00-1.30 [facility] CBC-Complete Blood Cnt No Di ffon 05-15-2025 Erythrocyte distribution width (RBC) [Ratio] 16.4 % High 11.6-14.6 [facility] Comment on above: Order Comment: 301.2 0000 Performed By: #### L 501.6710, L101.9900, L501.8820 #### [facility] [address] [place], [address] Hematocrit (Bld) [Volume fraction] 39.5 % Low 40-54 [facility] Comment on above: Order Comment: 301.2 0000 Performed By: #### L 501.6710, L101.9900, [id number] #### [facility] [address] [place], [address] Hemoglobin (Bld) [Mass/Vol] 12.6 g/dL Low 13.0-16.5 [facility] Comment on above: Order Comment: 301.2 0000 Performed By: #### L 501.6710, L101.9900, [id number] #### [facility] [address] [place], [address] MCH (RBC) [Entitic mass] 29.3 pg Normal 27.0-32.0 [facility] Comment on above: Order Comment: 301.2 0000 Performed By: #### L 501.6710, L101.9900, [id number] #### [facility] [address] [place], [address] MCHC (RBC) [Mass/Vol] 31.9 g/dL Low 32-36 [facility] Comment on above: Order Comment: 301.2 0000 Performed By: #### L 501.6710, L101.9900, L501.8820 #### [facility] [address] [place], [address] MCV (RBC) [Entitic vol] 91.9 fL Normal 80-94 [facility] Comment on above: Order Comment: 301.2 0000 Performed By: #### L 501.6710, L101.9900, [id number] #### [facility] [address] [place], [address] Platelet mean volume (Bld) [Entitic vol] 10.2 fL Normal 6.2-12.0 [facility] Comment on above: Order Comment: 301.2 0000 Performed By: #### L 501.6710, L101.9900, [id number] #### [facility] [address] [place], [address] Platelets (Bld) [#/Vol] 201 10*3/uL Normal 150-450 [facility] Comment on above: Order Comment: 301.2 0000 Performed By: #### L 501.6710, L101.9900, [id number] #### [facility] [address] [place], [address] RBC (Bld) [#/Vol] 4.30 10*6/uL Low 4.6-6.2 [facility] Comment on above: Order Comment: 301.2 0000 Performed By: #### L 501.6710, L101.9900, [id number] #### [facility] [address] [place], [address] RDW SD 54.9 fl High 35.1-43.9 [facility] Comment on above: Order Comment: 301.2 0000 Performed By: #### L 501.6710, L101.9900, [id number] #### [facility] [address] [place], [address] WBC (Bld) [#/Vol] 5.5 10*3/uL Normal 4.4-11.0 [facility] Comment on above: Order Comment: 301.2 0000 Performed By: #### L 501.6710, L101.9900, [id number] #### [facility] [address] [place], [address] Carbon dioxide, total [Moles /volume] in Central venous bloodOrdered By: Tab Dupont on 05-15-2025 CO2 [Moles/Vol] 21.6 mmol/L 21.0-32.0 [facility] Chloride assayOrdered By: Vinh Lehman on 05-15-2025 Chloride [Moles/Vol] 106 mmol/L 98-108 [facility] Comprehensive Metabolic Prof ilon 05-15-2025 Albumin [Mass/Vol] 3.4 g/dL Normal 3.4-4.8 [facility] Comment on above: Order Comment: 301.2 0000 Performed By: #### L 501.6710, L101.9900, [id number] #### [facility] [address] [place], [address] Albumin/Globulin [Mass ratio] 0.9 {ratio} Normal 0.9-2.4 [facility] Comment on above: Order Comment: 301.2 0000 Performed By: #### L 501.6710, L101.9900, [id number] #### [facility] [address] [place], [address] ALK PHOS 133 U/L High 40-129 [facility] Comment on above: Order Comment: 301.2 0000 Performed By: #### L 501.6710, L101.9900, [id number] #### [facility] [address] [place], [address] ALT [Catalytic activity/Vol] 20 U/L Normal <=46 [facility] Comment on above: Order Comment: 301.2 0000 Performed By: #### L 501.6710, L101.9900, [id number] #### [facility] [address] [place], [address] AST [Catalytic activity/Vol] 28 U/L Normal <=37 [facility] Comment on above: Order Comment: 301.2 0000 Performed By: #### L 501.6710, L101.9900, [id number] #### [facility] [address] [place], [address] Bilirubin [Mass/Vol] 0.43 mg/dL Normal 0.00-1.30 [facility] Comment on above: Order Comment: 301.2 0000 Performed By: #### L 501.6710, L101.9900, [id number] #### [facility] [address] [place], [address] BUN/CRE 17.5 RATIO Normal 10-20 [facility] Comment on above: Order Comment: 301.2 0000 Performed By: #### L 501.6710, L101.9900, [id number] #### [facility] [address] [place], [address] Calcium [Mass/Vol] 8.9 mg/dL Normal 7.6-11.0 [facility] Comment on above: Order Comment: 301.2 0000 Performed By: #### L 501.6710, L101.9900, [id number] #### [facility] [address] [place], [address] Chloride [Moles/Vol] 106 mmol/L Normal 98-108 [facility] Comment on above: Order Comment: 301.2 0000 Performed By: #### L 501.6710, L101.9900, [id number] #### [facility] [address] [place], [address] CO2 [Moles/Vol] 21.6 mmol/L Normal 21.0-32.0 [facility] Comment on above: Order Comment: 301.2 0000 Performed By: #### L 501.6710, L101.9900, [id number] #### [facility] [address] [place], [address] Creatinine [Mass/Vol] 0.52 mg/dL Low 0.70-1.20 [facility] Comment on above: Order Comment: 301.2 0000 Performed By: #### L 501.6710, L101.9900, [id number] #### [facility] [address] [place], [address] GAP 12 Normal 5-15 [facility] Comment on above: Order Comment: 301.2 0000 Performed By: #### L 501.6710, L101.9900, [id number] #### [facility] [address] [place], [address] GFR/1.73 sq M.predicted among non-blacks MDRD (S/P/Bld) [Vol rate/Area] 113 mL/min/{1.73_m2} Normal >60 [facility] Comment on above: Order Comment: 301.2 0000 Result Comment: mL/m in/1.73m2 CKD-EPI Creatinine Equation (2020) Performed By: #### L 501.6710, L101.9900, [id number] #### [facility] [address] [place], [address] Globulin (S) [Mass/Vol] 3.6 g/dL Normal 2.2-4.2 [facility] Comment on above: Order Comment: 301.2 0000 Performed By: #### L 501.6710, L101.9900, [id number] #### [facility] [address] [place], [address] Glucose [Mass/Vol] 76 mg/dL Normal 70-99 [facility] Comment on above: Order Comment: 301.2 0000 Performed By: #### L 501.6710, L101.9900, [id number] #### [facility] [address] [place], [address] Potassium [Moles/Vol] 3.6 mmol/L Normal 3.3-5.1 [facility] Comment on above: Order Comment: 301.2 0000 Performed By: #### L 501.6710, L101.9900, [id number] #### [facility] [address] [place], [address] Sodium [Moles/Vol] 139 mmol/L Normal 133-145 [facility] Comment on above: Order Comment: 301.2 0000 Performed By: #### L 501.6710, L101.9900, [id number] #### [facility] [address] [place], [address] T PROT 7.0 g/dL Normal 5.9-8.4 [facility] Comment on above: Order Comment: 301.2 0000 Performed By: #### L 501.6710, L101.9900, [id number] #### [facility] [address] [place], [address] Urea nitrogen [Mass/Vol] 9 mg/dL Normal 4-19 [facility] Comment on above: Order Comment: 301.2 0000 Performed By: #### L 501.6710, L101.9900, [id number] #### [facility] [address] [place], [address] Erythrocyte distribution wid th ratioOrdered By: Tab Dupont on 05-15-2025 Erythrocyte distribution width (RBC) [Ratio] 16.4 % High 11.6-14.6 [facility] Erythrocyte distribution wid th standard deviationOrdered By: Tab Dupont on 05-15-2025 Erythrocyte distribution width (RBC) [Ratio] 54.9 fl High 35.1-43.9 [facility] Glomerular filtration rate ( GFR) estimation/1.73 sq m using serum, plasma, or whole bOrdered By: Tab Dupont on 05-15-2025 GFR/1.73 sq M.predicted among non-blacks MDRD (S/P/Bld) [Vol rate/Area] 113 mL/min/{1.73_m2} >60 [facility] Comment on above: mL/min/1.73m2 CKD-EP I Creatinine Equation (2020) Hematocrit Auto (Bld) [Volum e fraction]Ordered By: Tab Dupont on 05-15-2025 Hematocrit (Bld) [Volume fraction] 39.5 % Low 40-54 [facility] Hemoglobin measurementOrdere d By: Tab Dupont on 05-15-2025 Hemoglobin (Bld) [Mass/Vol] 12.6 g/dL Low 13.0-16.5 [facility] Laboratory - Chemistry and C hemistry - challengeOrdered By: Tab Dupont on 05-15-2025 AST [Catalytic activity/Vol] 28 U/L <38 [facility] MCV (mean corpuscular volume ) determinationOrdered By: Tab Dupont on 05-15-2025 MCV (RBC) [Entitic vol] 91.9 fL 80-94 [facility] Mean corpuscular hemoglobin (MCH) determinationOrdered By: Tab Dupont on 05-15-2025 MCH (RBC) [Entitic mass] 29.3 pg 27.0-32.0 [facility] Mean corpuscular hemoglobin concentration (MCHC) determinationOrdered By: Tab Dupont on 05-15-2025 MCHC (RBC) [Mass/Vol] 31.9 g/dL Low 32-36 [facility] Mean platelet volume determi nationOrdered By: Tab Dupont on 05-15-2025 Platelet mean volume (Bld) [Entitic vol] 10.2 fL 6.2-12.0 [facility] Platelet countOrdered By: Vinh Lehman on 05-15-2025 Platelets (Bld) [#/Vol] 201 10*3/uL 150-450 [facility] Potassium measurement (mass/ volume)Ordered By: Tab Dupont on 05-15-2025 Potassium (Unsp spec) [Mass/Vol] 3.6 mmol/L 3.3-5.1 [facility] RBC Auto (Bld) [#/Vol]Ordere d By: Tab Dupont on 05-15-2025 RBC (Bld) [#/Vol] 4.30 10*6/uL Low 4.6-6.2 [facility] Serum creatinine measurement (mass/volume)Ordered By: Tab Dupont on 05-15-2025 Creatinine [Mass/Vol] 0.52 mg/dL Low 0.70-1.20 [facility] Serum globulin measurementOr dered By: Tab Dupont on 05-15-2025 Globulin (S) [Mass/Vol] 3.6 g/dL 2.2-4.2 [facility] Serum glucose measurement (m ass/volume)Ordered By: Tab Dupont on 05-15-2025 Glucose [Mass/Vol] 76 mg/dL 70-99 [facility] Serum or plasma alanine miller otransferase (ALT) measurementOrdered By: Tab Dupont on 05-15-2025 ALT [Catalytic activity/Vol] 20 U/L <47 [facility] Serum or plasma albumin randall urement (mass/volume)Ordered By: Tab Dupont on 05-15-2025 Albumin [Mass/Vol] 3.4 g/dL 3.4-4.8 [facility] Serum or plasma albumin/glob ulin mass ratioOrdered By: Tab Dupont on 05-15-2025 Albumin/Globulin [Mass ratio] 0.9 {ratio} 0.9-2.4 [facility] Serum or plasma alkaline nallely sphatase measurementOrdered By: Tab Dupont on 05-15-2025 ALP [Catalytic activity/Vol] 133 U/L High 40-129 [facility] Serum or plasma calcium randall urement (mass/volume)Ordered By: Tab Dupont on 05-15-2025 Calcium [Mass/Vol] 8.9 mg/dL 7.6-11.0 [facility] Serum or plasma urea nitroge n measurement (mass/volume)Ordered By: Tab Dupont on 05-15-2025 Urea nitrogen [Mass/Vol] 9 mg/dL 4-19 [facility] Sodium levelOrdered By: Omar Dupont on 05-15-2025 Sodium [Moles/Vol] 139 mmol/L 133-145 [facility] Total proteinOrdered By: Regino Dupont on 05-15-2025 Protein [Mass/Vol] 7.0 g/dL 5.9-8.4 [facility] Trough vancomycin levelOrder ed By: Tab Dupont on 05-15-2025 Vancomycin trough [Mass/Vol] 17.6 ug/mL High 5.0-15.0 [facility] Comment on above: Recommended goal tro ugh ranges are generally 10-15 mcg/ml for less severe/complicated infections such as cellulitis or UTI and 15-20 mcg/ml for more severe/complicated infections such as bacteremia/sepsis, osteomyelitis, pneumonia or meningitis. Goal trough ranges should take into account indication, patient-specific factors and organism HARINDER.VANCOMYCIN STANDARED DRUG THERAPY TROUGH LEVEL: 5.0 - 15.0 mg/L VANCOMYCIN HIGH INTENSITY THERAPY TROUGH LEVEL: 15.0 - 20.0 mg/L High Intensity therapy recommended for serious lifethreatening infections include:- Jxephownte-Xsabmaqjffmg-Dfbtqacrr (Ventilator/Healtcare Associated)-Sepsis PLEASE CONTACT PHARMACY SERVICES (#[id number]) FOR INTERPRETATIONOF RESULTS. Vancomycin, Trough Levelon 0 05-15-2025 VANCO, TROUGH 17.6 ug/mL High 5.0-15.0 [facility] Comment on above: Order Comment: 301.2 [...] (Ventilator/Healtcare Associated) -Sepsis PLEASE CONTACT PHARMACY SERVICES (#[id number]) FOR INTERPRETATION OF RESULTS. Performed By: #### L 501.6710, L101.9900, L501.8820 #### [facility] Laboratory [address] [place], [address] White blood cell (WBC) count Ordered By: Tab Dupont on 05-15-2025 WBC (Bld) [#/Vol] 5.5 10*3/uL 4.4-11.0 [facility] 36on 05-12-[address] Castillo, Please see labs received today. Patients sed rate is 64. Down from 78 on 04/21/25. C-reactive protein is 32.80. Please let us know if there is any changes to orders. Thank you. [facility] Trough vancomycin levelOrder ed By: Tab Dupont on 05-11-2025 Vancomycin trough [Mass/Vol] 16.8 ug/mL High 5.0-15.0 [facility] Comment on above: Recommended goal tro ugh ranges are generally 10-15 mcg/ml for less severe/complicated infections such as cellulitis or UTI and 15-20 mcg/ml for more severe/complicated infections such as bacteremia/sepsis, osteomyelitis, pneumonia or meningitis. Goal trough ranges should take into account indication, patient-specific factors and organism HARINDER.VANCOMYCIN STANDARED DRUG THERAPY TROUGH LEVEL: 5.0 - 15.0 mg/L VANCOMYCIN HIGH INTENSITY THERAPY TROUGH LEVEL: 15.0 - 20.0 mg/L High Intensity therapy recommended for serious lifethreatening infections include:- Xwevbadzpk-Uzghuuutbjhd-Cidhpbohz (Ventilator/Healtcare Associated)-Sepsis PLEASE CONTACT PHARMACY SERVICES (#[id number]) FOR INTERPRETATIONOF RESULTS. Vancomycin, Trough Levelon 0 05-11-2025 VANCO, TROUGH 16.8 ug/mL High 5.0-15.0 [facility] Comment on above: Order Comment: 301.2 [...] (Ventilator/Healtcare Associated) -Sepsis PLEASE CONTACT PHARMACY SERVICES (#[id number]) FOR INTERPRETATION OF RESULTS. Performed By: #### L 101.9900, L100.0500, L500.4050, L501.6710 #### [facility] [address] [place], [place], [id number] 36on 05-10-2025 36 Received a call from Clement stoner at [facility]. She stated that she wanted to clarify how often labs are needed on patient. She stated that all labs except vanc trough were drawn yesterday. She will fax those results. The vanc trough will be drawn tomorrow and will will be faxed to office. Normal [facility] Anion gap in Serum or Plasma Ordered By: Tab Dupont on 05-09-2025 Anion gap [Moles/Vol] 12 mmol/L - [facility] BUN/creatinine ratioOrdered By: Tab Dupont on 05-09-2025 Urea nitrogen/Creatinine [Mass ratio] 12.7 mg/mg - [facility] Bilirubin, totalOrdered By: Tab Dupont on 05-09-2025 Bilirubin [Mass/Vol] 0.28 mg/dL 0.00-1.30 [facility] CBC-Complete Blood Cnt No Di ffon 05-09-2025 Erythrocyte distribution width (RBC) [Ratio] 15.9 % High 11.6-14.6 [facility] Comment on above: Order Comment: 301.2 Performed By: #### L 101.9900, L100.0500, L500.4050, [id number] #### [facility] [address] [place], [place], [id number] Hematocrit (Bld) [Volume fraction] 36.0 % Low 40-54 [facility] Comment on above: Order Comment: 301.2 Performed By: #### L 101.9900, L100.0500, L500.4050, [id number] #### [facility] [address] [place], [address] Hemoglobin (Bld) [Mass/Vol] 11.5 g/dL Low 13.0-16.5 [facility] Comment on above: Order Comment: 301.2 Performed By: #### L 101.9900, L100.0500, L500.4050, [id number] #### [facility] [address] [place], [address] MCH (RBC) [Entitic mass] 29.1 pg Normal 27.0-32.0 [facility] Comment on above: Order Comment: 301.2 Performed By: #### L 101.9900, L100.0500, L500.4050, [id number] #### [facility] [address] [place], [address] MCHC (RBC) [Mass/Vol] 31.9 g/dL Low 32-36 [facility] Comment on above: Order Comment: 301.2 Performed By: #### L 101.9900, L100.0500, L500.4050, [id number] #### [facility] [address] [place], [address] MCV (RBC) [Entitic vol] 91.1 fL Normal 80-94 [facility] Comment on above: Order Comment: 301.2 Performed By: #### L 101.9900, L100.0500, L500.4050, [id number] #### [facility] [address] [place], [address] Platelet mean volume (Bld) [Entitic vol] 10.3 fL Normal 6.2-12.0 [facility] Comment on above: Order Comment: 301.2 Performed By: #### L 101.9900, L100.0500, L500.4050, [id number] #### [facility] [address] [place], [address] Platelets (Bld) [#/Vol] 285 10*3/uL Normal 150-450 [facility] Comment on above: Order Comment: 301.2 Performed By: #### L 101.9900, L100.0500, L500.4050, [id number] #### [facility] [address] [place], [address] RBC (Bld) [#/Vol] 3.95 10*6/uL Low 4.6-6.2 [facility] Comment on above: Order Comment: 301.2 Performed By: #### L 101.9900, L100.0500, L500.4050, [id number] #### [facility] [address] [place], [address] RDW SD 53.3 fl High 35.1-43.9 [facility] Comment on above: Order Comment: 301.2 Performed By: #### L 101.9900, L100.0500, L500.4050, [id number] #### [facility] [address] [place], [address] WBC (Bld) [#/Vol] 5.7 10*3/uL Normal 4.4-11.0 [facility] Comment on above: Order Comment: 301.2 Performed By: #### L 101.9900, L100.0500, L500.4050, [id number] #### [facility] [address] [place], [address] CRPon 05-09-2025 C-REACTIVE PROT 32.80 mg/L High 0.0-3.0 [facility] Comment on above: Order Comment: 301.2 Performed By: #### L 101.9900, L100.0500, L500.4050, [id number] #### [facility] [address] [place], [address] Carbon dioxide, total [Moles /volume] in Central venous bloodOrdered By: Tab Dupont on 05-09-2025 CO2 [Moles/Vol] 19.7 mmol/L Low 21.0-32.0 [facility] Chloride assayOrdered By: Vinh Lehman on 05-09-2025 Chloride [Moles/Vol] 106 mmol/L 98-108 [facility] Comprehensive Metabolic Prof ilon 05-09-2025 Albumin [Mass/Vol] 3.1 g/dL Low 3.4-4.8 [facility] Comment on above: Order Comment: 301.2 Performed By: #### L 101.9900, L100.0500, L500.4050, [id number] #### [facility] [address] [place], [address] Albumin/Globulin [Mass ratio] 0.8 {ratio} Low 0.9-2.4 [facility] Comment on above: Order Comment: 301.2 Performed By: #### L 101.9900, L100.0500, L500.4050, [id number] #### [facility] [address] [place], [address] ALK PHOS 117 U/L Normal 40-129 [facility] Comment on above: Order Comment: 301.2 Performed By: #### L 101.9900, L100.0500, L500.4050, [id number] #### [facility] [address] [place], [address] ALT [Catalytic activity/Vol] 9 U/L Normal <=46 [facility] Comment on above: Order Comment: 301.2 Performed By: #### L 101.9900, L100.0500, L500.4050, [id number] #### [facility] [address] [place], [address] AST [Catalytic activity/Vol] 15 U/L Normal <=37 [facility] Comment on above: Order Comment: 301.2 Performed By: #### L 101.9900, L100.0500, L500.4050, [id number] #### [facility] [address] [place], [address] Bilirubin [Mass/Vol] 0.28 mg/dL Normal 0.00-1.30 [facility] Comment on above: Order Comment: 301.2 Performed By: #### L 101.9900, L100.0500, L500.4050, [id number] #### [facility] [address] [place], [address] BUN/CRE 12.7 RATIO Normal 10-20 [facility] Comment on above: Order Comment: 301.2 Performed By: #### L 101.9900, L100.0500, L500.4050, [id number] #### [facility] [address] [place], [address] Calcium [Mass/Vol] 8.8 mg/dL Normal 7.6-11.0 [facility] Comment on above: Order Comment: 301.2 Performed By: #### L 101.9900, L100.0500, L500.4050, [id number] #### [facility] [address] [place], [address] Chloride [Moles/Vol] 106 mmol/L Normal 98-108 [facility] Comment on above: Order Comment: 301.2 Performed By: #### L 101.9900, L100.0500, L500.4050, [id number] #### [facility] [address] [place], [address] CO2 [Moles/Vol] 19.7 mmol/L Low 21.0-32.0 [facility] Comment on above: Order Comment: 301.2 Performed By: #### L 101.9900, L100.0500, L500.4050, [id number] #### [facility] [address] [place], [address] Creatinine [Mass/Vol] 0.49 mg/dL Low 0.70-1.20 [facility] Comment on above: Order Comment: 301.2 Performed By: #### L 101.9900, L100.0500, L500.4050, [id number] #### [facility] [address] [place], [address] GAP 12 Normal 5-15 [facility] Comment on above: Order Comment: 301.2 Performed By: #### L 101.9900, L100.0500, L500.4050, [id number] #### [facility] [address] [place], [address] GFR/1.73 sq M.predicted among non-blacks MDRD (S/P/Bld) [Vol rate/Area] 116 mL/min/{1.73_m2} Normal >60 [facility] Comment on above: Order Comment: 301.2 Result Comment: mL/m in/1.73m2 CKD-EPI Creatinine Equation (2020) Performed By: #### L 101.9900, L100.0500, L500.4050, [id number] #### [facility] [address] [place], [address] Globulin (S) [Mass/Vol] 4.0 g/dL Normal 2.2-4.2 [facility] Comment on above: Order Comment: 301.2 Performed By: #### L 101.9900, L100.0500, L500.4050, [id number] #### [facility] [address] [place], [address] Glucose [Mass/Vol] 145 mg/dL High 70-99 [facility] Comment on above: Order Comment: 301.2 Performed By: #### L 101.9900, L100.0500, L500.4050, [id number] #### [facility] [address] [place], [address] Potassium [Moles/Vol] 3.5 mmol/L Normal 3.3-5.1 [facility] Comment on above: Order Comment: 301.2 Performed By: #### L 101.9900, L100.0500, L500.4050, [id number] #### [facility] [address] [place], [address] Sodium [Moles/Vol] 138 mmol/L Normal 133-145 [facility] Comment on above: Order Comment: 301.2 Performed By: #### L 101.9900, L100.0500, L500.4050, [id number] #### [facility] [address] [place], [address] T PROT 7.1 g/dL Normal 5.9-8.4 [facility] Comment on above: Order Comment: 301.2 Performed By: #### L 101.9900, L100.0500, L500.4050, [id number] #### [facility] [address] [place], [address] Urea nitrogen [Mass/Vol] 6 mg/dL Normal 4-19 [facility] Comment on above: Order Comment: 301.2 Performed By: #### L 101.9900, L100.0500, L500.4050, [id number] #### [facility] [address] [place], [address] Erythrocyte Sed Rateon 05-09 SED RATE 64 mm/hr High 0-20 [facility] Comment on above: Order Comment: 301.2 Performed By: #### L 101.9900, L100.0500, L500.4050, L501.6710 #### [facility] [address] [place], [address] Erythrocyte distribution wid th ratioOrdered By: Tab Dupont on 05-09-2025 Erythrocyte distribution width (RBC) [Ratio] 15.9 % High 11.6-14.6 [facility] Erythrocyte distribution wid th standard deviationOrdered By: Tab Dupont on 05-09-2025 Erythrocyte distribution width (RBC) [Ratio] 53.3 fl High 35.1-43.9 [facility] Erythrocyte sedimentation ra teOrdered By: Tab Dupont on 05-09-2025 ESR (Bld) [Velocity] 64 mm/h High 0-20 [facility] Glomerular filtration rate ( GFR) estimation/1.73 sq m using serum, plasma, or whole bOrdered By: Tab Dupont on 05-09-2025 GFR/1.73 sq M.predicted among non-blacks MDRD (S/P/Bld) [Vol rate/Area] 116 mL/min/{1.73_m2} >60 [facility] Comment on above: mL/min/1.73m2 CKD-EP I Creatinine Equation (2020) Hematocrit Auto (Bld) [Volum e fraction]Ordered By: Tab Dupont on 05-09-2025 Hematocrit (Bld) [Volume fraction] 36.0 % Low 40-54 [facility] Hemoglobin measurementOrdere d By: Tab Dupont on 05-09-2025 Hemoglobin (Bld) [Mass/Vol] 11.5 g/dL Low 13.0-16.5 [facility] Laboratory - Chemistry and C hemistry - challengeOrdered By: Tab Dupont on 05-09-2025 AST [Catalytic activity/Vol] 15 U/L <38 [facility] MCV (mean corpuscular volume ) determinationOrdered By: Tab Dupont on 05-09-2025 MCV (RBC) [Entitic vol] 91.1 fL 80-94 [facility] Mean corpuscular hemoglobin (MCH) determinationOrdered By: Tab Dupont on 05-09-2025 MCH (RBC) [Entitic mass] 29.1 pg 27.0-32.0 [facility] Mean corpuscular hemoglobin concentration (MCHC) determinationOrdered By: Tab Dupont on 05-09-2025 MCHC (RBC) [Mass/Vol] 31.9 g/dL Low 32-36 [facility] Mean platelet volume determi nationOrdered By: Tab Dupont on 05-09-2025 Platelet mean volume (Bld) [Entitic vol] 10.3 fL 6.2-12.0 [facility] Platelet countOrdered By: Vinh Lehman on 05-09-2025 Platelets (Bld) [#/Vol] 285 10*3/uL 150-450 [facility] Potassium measurement (mass/ volume)Ordered By: Tab Dupont on 05-09-2025 Potassium (Unsp spec) [Mass/Vol] 3.5 mmol/L 3.3-5.1 [facility] RBC Auto (Bld) [#/Vol]Ordere d By: Tab Dupont on 05-09-2025 RBC (Bld) [#/Vol] 3.95 10*6/uL Low 4.6-6.2 [facility] Serum creatinine measurement (mass/volume)Ordered By: Tab Dupont on 05-09-2025 Creatinine [Mass/Vol] 0.49 mg/dL Low 0.70-1.20 [facility] Serum globulin measurementOr dered By: Tab Dupont on 05-09-2025 Globulin (S) [Mass/Vol] 4.0 g/dL 2.2-4.2 [facility] Serum glucose measurement (m ass/volume)Ordered By: Tab Dupont on 05-09-2025 Glucose [Mass/Vol] 145 mg/dL High 70-99 [facility] Serum or plasma C reactive p rotein measurement (mass/volume)Ordered By: Tab Dupont on 05-09-2025 CRP [Mass/Vol] 32.80 mg/L High 0.0-3.0 [facility] Serum or plasma alanine miller otransferase (ALT) measurementOrdered By: Tab Dupont on 05-09-2025 ALT [Catalytic activity/Vol] 9 U/L <47 [facility] Serum or plasma albumin randall urement (mass/volume)Ordered By: Tab Dupont on 05-09-2025 Albumin [Mass/Vol] 3.1 g/dL Low 3.4-4.8 [facility] Serum or plasma albumin/glob ulin mass ratioOrdered By: Tab Dupont on 05-09-2025 Albumin/Globulin [Mass ratio] 0.8 {ratio} Low 0.9-2.4 [facility] Serum or plasma alkaline nallely sphatase measurementOrdered By: Tab Dupont on 05-09-2025 ALP [Catalytic activity/Vol] 117 U/L 40-129 [facility] Serum or plasma calcium randall urement (mass/volume)Ordered By: Tab Dupont on 05-09-2025 Calcium [Mass/Vol] 8.8 mg/dL 7.6-11.0 [facility] Serum or plasma urea nitroge n measurement (mass/volume)Ordered By: Tab Dupont on 05-09-2025 Urea nitrogen [Mass/Vol] 6 mg/dL 4-19 [facility] Sodium levelOrdered By: Omar Dupont on 05-09-2025 Sodium [Moles/Vol] 138 mmol/L 133-145 [facility] Total proteinOrdered By: Regino Dupont on 05-09-2025 Protein [Mass/Vol] 7.1 g/dL 5.9-8.4 [facility] White blood cell (WBC) count Ordered By: Tab Dupont on 05-09-2025 WBC (Bld) [#/Vol] 5.7 10*3/uL 4.4-11.0 [facility] CBC-Complete Blood Cnt No Di ffon 05-08-2025 HCT Normal 40-54 [facility] Comment on above: Order Comment: 301.2 Result Comment: UTO X1 Performed By: #### L 101.9900, L100.0500, L500.4050, [id number] #### [facility] [address] [place], [place], [address] HGB Normal 13.0-16.5 [facility] Comment on above: Order Comment: 301.2 Result Comment: UTO X1 Performed By: #### L 101.9900, L100.0500, L500.4050, [id number] #### [facility] [address] [place], [address] MCH Normal 27.0-32.0 [facility] Comment on above: Order Comment: 301.2 Result Comment: UTO X1 Performed By: #### L 101.9900, L100.0500, L500.4050, [id number] #### [facility] [address] [place], [address] MCHC Normal 32-36 [facility] Comment on above: Order Comment: 301.2 Result Comment: UTO X1 Performed By: #### L 101.9900, L100.0500, L500.4050, [id number] #### [facility] [address] [place], [address] MCV Normal 80-94 [facility] Comment on above: Order Comment: 301.2 Result Comment: UTO X1 Performed By: #### L 101.9900, L100.0500, L500.4050, [id number] #### [facility] [address] [place], [address] PLT Normal 150-450 [facility] Comment on above: Order Comment: 301.2 Result Comment: UTO X1 Performed By: #### L 101.9900, L100.0500, L500.4050, [id number] #### [facility] [address] [place], [address] RBC Normal 4.6-6.2 [facility] Comment on above: Order Comment: 301.2 Result Comment: UTO X1 Performed By: #### L 101.9900, L100.0500, L500.4050, [id number] #### [facility] [address] [place], [address] RDW CV Normal 11.6-14.6 [facility] Comment on above: Order Comment: 301.2 Result Comment: UTO X1 Performed By: #### L 101.9900, L100.0500, L500.4050, [id number] #### [facility] [address] [place], [address] RDW SD Normal 35.1-43.9 [facility] Comment on above: Order Comment: 301.2 Result Comment: UTO X1 Performed By: #### L 101.9900, L100.0500, L500.4050, [id number] #### [facility] [address] [place], [address] WBC Normal 4.4-11.0 [facility] Comment on above: Order Comment: 301.2 Result Comment: UTO X1 Performed By: #### L 101.9900, L100.0500, L500.4050, [id number] #### [facility] [address] [place], [address] Comprehensive Metabolic Prof ilon 05-08-2025 ALB Normal 3.4-4.8 [facility] Comment on above: Order Comment: 301.2 Result Comment: UTO X1 Performed By: #### L 101.9900, L100.0500, L500.4050, [id number] #### [facility] [address] [place], [address] ALK PHOS Normal 40-129 [facility] Comment on above: Order Comment: 301.2 Result Comment: UTO X1 Performed By: #### L 101.9900, L100.0500, L500.4050, L501.6710 #### [facility] [address] [place], [address] ALT Normal <=46 [facility] Comment on above: Order Comment: 301.2 Result Comment: UTO X1 Performed By: #### L 101.9900, L100.0500, L500.4050, L501.6710 #### [facility] [address] [place], [address] AST Normal <=37 [facility] Comment on above: Order Comment: 301.2 Result Comment: UTO X1 Performed By: #### L 101.9900, L100.0500, L500.4050, L501.6710 #### [facility] [address] [place], [address] BUN Normal 4-19 [facility] Comment on above: Order Comment: 301.2 Result Comment: UTO X1 Performed By: #### L 101.9900, L100.0500, L500.4050, L501.6710 #### [facility] [address] [place], [address] BUN/CRE Normal 10-20 [facility] Comment on above: Order Comment: 301.2 Result Comment: UTO X1 Performed By: #### L 101.9900, L100.0500, L500.4050, L501.6710 #### [facility] [address] [place], [address] Calcium Normal 7.6-11.0 [facility] Comment on above: Order Comment: 301.2 Result Comment: UTO X1 Performed By: #### L 101.9900, L100.0500, L500.4050, L501.6710 #### [facility] [address] [place], [address] CL Normal 98-108 [facility] Comment on above: Order Comment: 301.2 Result Comment: UTO X1 Performed By: #### L 101.9900, L100.0500, L500.4050, L501.6710 #### [facility] [address] [place], [address] CO2 Normal 21.0-32.0 [facility] Comment on above: Order Comment: 301.2 Result Comment: UTO X1 Performed By: #### L 101.9900, L100.0500, L500.4050, L501.6710 #### [facility] [address] [place], [address] CREAT,SERUM Normal 0.70-1.20 [facility] Comment on above: Order Comment: 301.2 Result Comment: UTO X1 Performed By: #### L 101.9900, L100.0500, L500.4050, L501.6710 #### [facility] [address] [place], [address] eGFR Normal >60 [facility] Comment on above: Order Comment: 301.2 Result Comment: UTO X1 Performed By: #### L 101.9900, L100.0500, L500.4050, L501.6710 #### [facility] [address] [place], [address] GAP Normal 5-15 [facility] Comment on above: Order Comment: 301.2 Result Comment: UTO X1 Performed By: #### L 101.9900, L100.0500, L500.4050, L501.6710 #### [facility] [address] [place], [address] GLU Normal 70-99 [facility] Comment on above: Order Comment: 301.2 Result Comment: UTO X1 Performed By: #### L 101.9900, L100.0500, L500.4050, L501.6710 #### [facility] [address] [place], [address] Potassium Normal 3.3-5.1 [facility] Comment on above: Order Comment: 301.2 Result Comment: UTO X1 Performed By: #### L 101.9900, L100.0500, L500.4050, L501.6710 #### [facility] [address] [place], [address] T BILI Normal 0.00-1.30 [facility] Comment on above: Order Comment: 301.2 Result Comment: UTO X1 Performed By: #### L 101.9900, L100.0500, L500.4050, L501.6710 #### [facility] [address] [place], [address] T PROT Normal 5.9-8.4 [facility] Comment on above: Order Comment: 301.2 Result Comment: UTO X1 Performed By: #### L 101.9900, L100.0500, L500.4050, L501.6710 #### [facility] [address] [place], [address] Comprehensive Metabolic Profil Normal 133-145 [facility] Comment on above: Order Comment: 301.2 Result Comment: UTO X1 Performed By: #### L 101.9900, L100.0500, L500.4050, L501.6710 #### [facility] [address] [place], [address] Erythrocyte Sed Rateon 05-08 SED RATE Normal 0-20 [facility] Comment on above: Order Comment: 301.2 Result Comment: UTO X1 Performed By: #### L 101.9900, L100.0500, L500.4050, L501.6710 #### [facility] [address] [place], [address] 36on 05-03-2025 36 Message received fro m Dr. Castillo to keep the same dose for now. Called Nikki back at [facility] and released message via voicemail. Encouraged her to call office back if have any more questions or concerns. [facility] 36 Received call from Nikki, nurse at [facility]. They repeated the vanc trough again today due to it being elevated on the . The level today is 22. Facility calling to see if physician wanted to continue the 1gm every 12 hours or want to make another adjustment before his dose at 9am today. Sent secure chat to Dr. Castillo. Awaiting message back. [facility] Trough vancomycin levelOrder ed By: Tab Dupont on 05-03-2025 Vancomycin trough [Mass/Vol] 22.0 ug/mL High 5.0-15.0 [facility] Comment on above: Recommended goal tro ugh ranges are generally 10-15 mcg/ml for less severe/complicated infections such as cellulitis or UTI and 15-20 mcg/ml for more severe/complicated infections such as bacteremia/sepsis, osteomyelitis, pneumonia or meningitis. Goal trough ranges should take into account indication, patient-specific factors and organism HARINDER.VANCOMYCIN STANDARED DRUG THERAPY TROUGH LEVEL: 5.0 - 15.0 mg/L VANCOMYCIN HIGH INTENSITY THERAPY TROUGH LEVEL: 15.0 - 20.0 mg/L High Intensity therapy recommended for serious lifethreatening infections include:- Smhjaezfgu-Soddcezqzinv-Uvdcyzuxg (Ventilator/Healtcare Associated)-Sepsis PLEASE CONTACT PHARMACY SERVICES (#[id number]) FOR INTERPRETATIONOF RESULTS. Vancomycin, Trough Levelon 0 05-03-2025 VANCO, TROUGH 22.0 ug/mL High 5.0-15.0 [facility] Comment on above: Order Comment: 301.2 [...] (Ventilator/Healtcare Associated) -Sepsis PLEASE CONTACT PHARMACY SERVICES (#[id number]) FOR INTERPRETATION OF RESULTS. Performed By: #### L 101.9900, L100.0500, L500.4050, L501.6710 #### [facility] [address] [place], [address] 36on 05-01-2025 36 Received lab report for [...] Ambrosio. Verbalized understanding of new order. Normal [facility] 36 Pt dc to [facility] [phone]. Called facility and spoke to nurse Vaughan to verify IV meds, dose, frequency, EOT, weekly labs, and follow up appt with Dr. Castillo on 06/02 at 11am. She was able to read back orders. Also faxed appt reminder to facility and received confirmation fax (scanned under media). Normal [facility] Anion gap in Serum or Plasma Ordered By: Tab Dupont on 05-01-2025 Anion gap [Moles/Vol] 12 mmol/L 5-15 [facility] BUN/creatinine ratioOrdered By: Tab Dupont on 05-01-2025 Urea nitrogen/Creatinine [Mass ratio] 19.4 mg/mg 10- [facility] Bilirubin, totalOrdered By: Tab Dupont on 05-01-2025 Bilirubin [Mass/Vol] 0.26 mg/dL 0.00-1.30 [facility] CBC-Complete Blood Cnt No Di ffon 05-01-2025 Erythrocyte distribution width (RBC) [Ratio] 15.9 % High 11.6-14.6 [facility] Comment on above: Performed By: #### L 501.6710, L101.9900, L501.8820 #### [facility] [address] [place], [address] Hematocrit (Bld) [Volume fraction] 33.5 % Low 40-54 [facility] Comment on above: Performed By: #### L 501.6710, L101.9900, L501.8820 #### [facility] [address] [place], [address] Hemoglobin (Bld) [Mass/Vol] 10.9 g/dL Low 13.0-16.5 [facility] Comment on above: Performed By: #### L 501.6710, L101.9900, L501.8820 #### [facility] [address] [place], [address] MCH (RBC) [Entitic mass] 29.4 pg Normal 27.0-32.0 [facility] Comment on above: Performed By: #### L 501.6710, L101.9900, L501.8820 #### [facility] [address] [place], [address] MCHC (RBC) [Mass/Vol] 32.5 g/dL Normal 32-36 [facility] Comment on above: Performed By: #### L 501.6710, L101.9900, L501.8820 #### [facility] [address] [place], [address] MCV (RBC) [Entitic vol] 90.3 fL Normal 80-94 [facility] Comment on above: Performed By: #### L 501.6710, L101.9900, L501.8820 #### [facility] [address] [place], [address] Platelet mean volume (Bld) [Entitic vol] 9.7 fL Normal 6.2-12.0 [facility] Comment on above: Performed By: #### L 501.6710, L101.9900, L501.8820 #### [facility] [address] [place], [address] Platelets (Bld) [#/Vol] 340 10*3/uL Normal 150-450 [facility] Comment on above: Performed By: #### L 501.6710, L101.9900, L501.8820 #### [facility] [address] [place], [address] RBC (Bld) [#/Vol] 3.71 10*6/uL Low 4.6-6.2 [facility] Comment on above: Performed By: #### L 501.6710, L101.9900, L501.8820 #### [facility] [address] [place], [address] RDW SD 51.4 fl High 35.1-43.9 [facility] Comment on above: Performed By: #### L 501.6710, L101.9900, L501.8820 #### [facility] [address] [place], [address] WBC (Bld) [#/Vol] 7.4 10*3/uL Normal 4.4-11.0 [facility] Comment on above: Performed By: #### L 501.6710, L101.9900, L501.8820 #### [facility] [address] [place], [address] Carbon dioxide, total [Moles /volume] in Central venous bloodOrdered By: Tab Dupont on 05-01-2025 CO2 [Moles/Vol] 20.2 mmol/L Low 21.0-32.0 [facility] Chloride assayOrdered By: Vinh Lehman on 05-01-2025 Chloride [Moles/Vol] 106 mmol/L 98-108 [facility] Comprehensive Metabolic Prof ilon 05-01-2025 Albumin [Mass/Vol] 3.0 g/dL Low 3.4-4.8 [facility] Comment on above: Performed By: #### L 501.6710, L101.9900, L501.8820 #### [facility] [address] [place], [address] Albumin/Globulin [Mass ratio] 0.8 {ratio} Low 0.9-2.4 [facility] Comment on above: Performed By: #### L 501.6710, L101.9900, L501.8820 #### [facility] [address] [place], [address] ALK PHOS 115 U/L Normal 40-129 [facility] Comment on above: Performed By: #### L 501.6710, L101.9900, L501.8820 #### [facility] [address] [place], [address] ALT [Catalytic activity/Vol] 7 U/L Normal <=46 [facility] Comment on above: Performed By: #### L 501.6710, L101.9900, L501.8820 #### [facility] [address] [place], [address] AST [Catalytic activity/Vol] 16 U/L Normal <=37 [facility] Comment on above: Performed By: #### L 501.6710, L101.9900, L501.8820 #### [facility] [address] [place], [address] Bilirubin [Mass/Vol] 0.26 mg/dL Normal 0.00-1.30 [facility] Comment on above: Performed By: #### L 501.6710, L101.9900, L501.8820 #### [facility] [address] [place], [address] BUN/CRE 19.4 RATIO Normal 10-20 [facility] Comment on above: Performed By: #### L 501.6710, L101.9900, L501.8820 #### [facility] [address] [place], [address] Calcium [Mass/Vol] 8.5 mg/dL Normal 7.6-11.0 [facility] Comment on above: Performed By: #### L 501.6710, L101.9900, L501.8820 #### [facility] [address] [place], [address] Chloride [Moles/Vol] 106 mmol/L Normal 98-108 [facility] Comment on above: Performed By: #### L 501.6710, L101.9900, L501.8820 #### [facility] [address] [place], [address] CO2 [Moles/Vol] 20.2 mmol/L Low 21.0-32.0 [facility] Comment on above: Performed By: #### L 501.6710, L101.9900, L501.8820 #### [facility] [address] [place], [address] Creatinine [Mass/Vol] 0.51 mg/dL Low 0.70-1.20 [facility] Comment on above: Performed By: #### L 501.6710, L101.9900, L501.8820 #### [facility] [address] [place], [address] GAP 12 Normal 5-15 [facility] Comment on above: Performed By: #### L 501.6710, L101.9900, L501.8820 #### [facility] [address] [place], [address] GFR/1.73 sq M.predicted among non-blacks MDRD (S/P/Bld) [Vol rate/Area] 114 mL/min/{1.73_m2} Normal >60 [facility] Comment on above: Result Comment: mL/m in/1.73m2 CKD-EPI Creatinine Equation (2020) Performed By: #### L 501.6710, L101.9900, L501.8820 #### [facility] [address] [place], [address] Globulin (S) [Mass/Vol] 3.8 g/dL Normal 2.2-4.2 [facility] Comment on above: Performed By: #### L 501.6710, L101.9900, L501.8820 #### [facility] [address] [place], [address] Glucose [Mass/Vol] 126 mg/dL High 70-99 [facility] Comment on above: Performed By: #### L 501.6710, L101.9900, L501.8820 #### [facility] [address] [place], [address] Potassium [Moles/Vol] 3.7 mmol/L Normal 3.3-5.1 [facility] Comment on above: Performed By: #### L 501.6710, L101.9900, L501.8820 #### [facility] [address] [place], [address] Sodium [Moles/Vol] 138 mmol/L Normal 133-145 [facility] Comment on above: Performed By: #### L 501.6710, L101.9900, L501.8820 #### [facility] [address] [place], [address] T PROT 6.8 g/dL Normal 5.9-8.4 [facility] Comment on above: Performed By: #### L 501.6710, L101.9900, L501.8820 #### [facility] [address] [place], [address] Urea nitrogen [Mass/Vol] 10 mg/dL Normal 4-19 [facility] Comment on above: Performed By: #### L 501.6710, L101.9900, L501.8820 #### [facility] [address] [place], [address] Erythrocyte distribution wid th ratioOrdered By: Tab Dupont on 05-01-2025 Erythrocyte distribution width (RBC) [Ratio] 15.9 % High 11.6-14.6 [facility] Erythrocyte distribution wid th standard deviationOrdered By: Tab Dupont on 05-01-2025 Erythrocyte distribution width (RBC) [Ratio] 51.4 fl High 35.1-43.9 [facility] Glomerular filtration rate ( GFR) estimation/1.73 sq m using serum, plasma, or whole bOrdered By: Tab Dupont on 05-01-2025 GFR/1.73 sq M.predicted among non-blacks MDRD (S/P/Bld) [Vol rate/Area] 114 mL/min/{1.73_m2} >60 [facility] Comment on above: mL/min/1.73m2 CKD-EP I Creatinine Equation (2020) Hematocrit Auto (Bld) [Volum e fraction]Ordered By: Tab Dupont on 05-01-2025 Hematocrit (Bld) [Volume fraction] 33.5 % Low 40-54 [facility] Hemoglobin measurementOrdere d By: Tab Dupont on 05-01-2025 Hemoglobin (Bld) [Mass/Vol] 10.9 g/dL Low 13.0-16.5 [facility] - Chemistry and C hemistry - challengeOrdered By: Tab Dupont on 05-01-2025 AST [Catalytic activity/Vol] 16 U/L <38 [facility] MCV (mean corpuscular volume ) determinationOrdered By: Tab Dupont on 05-01-2025 MCV (RBC) [Entitic vol] 90.3 fL 80-94 [facility] Mean corpuscular hemoglobin (MCH) determinationOrdered By: Tab Dupont on 05-01-2025 MCH (RBC) [Entitic mass] 29.4 pg 27.0-32.0 [facility] Mean corpuscular hemoglobin concentration (MCHC) determinationOrdered By: Tab Dupont on 05-01-2025 MCHC (RBC) [Mass/Vol] 32.5 g/dL 32-36 [facility] Mean platelet volume determi nationOrdered By: Tab Dupont on 05-01-2025 Platelet mean volume (Bld) [Entitic vol] 9.7 fL 6.2-12.0 [facility] Platelet countOrdered By: Vinh Lehman on 05-01-2025 Platelets (Bld) [#/Vol] 340 10*3/uL 150-450 [facility] Potassium measurement (mass/ volume)Ordered By: Tab Dupont on 05-01-2025 Potassium (Unsp spec) [Mass/Vol] 3.7 mmol/L 3.3-5.1 [facility] RBC Auto (Bld) [#/Vol]Ordere d By: Tab Dupont on 05-01-2025 RBC (Bld) [#/Vol] 3.71 10*6/uL Low 4.6-6.2 [facility] Serum creatinine measurement (mass/volume)Ordered By: Tab Dupont on 05-01-2025 Creatinine [Mass/Vol] 0.51 mg/dL Low 0.70-1.20 [facility] Serum globulin measurementOr dered By: Tab Dupont on 05-01-2025 Globulin (S) [Mass/Vol] 3.8 g/dL 2.2-4.2 [facility] Serum glucose measurement (m ass/volume)Ordered By: Tab Dupont on 05-01-2025 Glucose [Mass/Vol] 126 mg/dL High 70-99 [facility] Serum or plasma alanine miller otransferase (ALT) measurementOrdered By: Tab Dupont on 05-01-2025 ALT [Catalytic activity/Vol] 7 U/L <47 [facility] Serum or plasma albumin randall urement (mass/volume)Ordered By: Tab Dupont on 05-01-2025 Albumin [Mass/Vol] 3.0 g/dL Low 3.4-4.8 [facility] Serum or plasma albumin/glob ulin mass ratioOrdered By: Tab Dupont on 05-01-2025 Albumin/Globulin [Mass ratio] 0.8 {ratio} Low 0.9-2.4 [facility] Serum or plasma alkaline nallely sphatase measurementOrdered By: Tab Dupont on 05-01-2025 ALP [Catalytic activity/Vol] 115 U/L 40-129 [facility] Serum or plasma calcium randall urement (mass/volume)Ordered By: Tab Dupont on 05-01-2025 Calcium [Mass/Vol] 8.5 mg/dL 7.6-11.0 [facility] Serum or plasma urea nitroge n measurement (mass/volume)Ordered By: Tab Dupont on 05-01-2025 Urea nitrogen [Mass/Vol] 10 mg/dL 4-19 [facility] Sodium levelOrdered By: Omar Dupont on 05-01-2025 Sodium [Moles/Vol] 138 mmol/L 133-145 [facility] Total proteinOrdered By: Regino Dupont on 05-01-2025 Protein [Mass/Vol] 6.8 g/dL 5.9-8.4 [facility] Trough vancomycin levelOrder ed By: Tab Dupont on 05-01-2025 Vancomycin trough [Mass/Vol] 26.1 ug/mL High 5.0-15.0 [facility] Comment on above: Recommended goal tro ugh ranges are generally 10-15 mcg/ml for less severe/complicated infections such as cellulitis or UTI and 15-20 mcg/ml for more severe/complicated infections such as bacteremia/sepsis, osteomyelitis, pneumonia or meningitis. Goal trough ranges should take into account indication, patient-specific factors and organism HARINDER.VANCOMYCIN STANDARED DRUG THERAPY TROUGH LEVEL: 5.0 - 15.0 mg/L VANCOMYCIN HIGH INTENSITY THERAPY TROUGH LEVEL: 15.0 - 20.0 mg/L High Intensity therapy recommended for serious lifethreatening infections include:- Fonqzxelou-Uzvacyirfxrs-Tbzywopac (Ventilator/Healtcare Associated)-Sepsis PLEASE CONTACT PHARMACY SERVICES (#[id number]) FOR INTERPRETATIONOF RESULTS. Vancomycin, Trough Levelon 0 05-01-2025 VANCO, TROUGH 26.1 ug/mL High 5.0-15.0 [facility] Comment on above: Order Comment: 301.2 [...] (Ventilator/Healtcare Associated) -Sepsis PLEASE CONTACT PHARMACY SERVICES (#0145) FOR INTERPRETATION OF RESULTS. Performed By: #### L 501.6710, L101.9900, L501.8820 #### [facility] [address] [place], [place], [address] White blood cell (WBC) count Ordered By: Tab Dupont on 05-01-2025 WBC (Bld) [#/Vol] 7.4 10*3/uL 4.4-11.0 [facility] 30on 04-28-2025 30 Proteus is sensitive to unasyn. OPAT for unasyn and vancomycin completed and scanned into media with stop date of 06/06. Follow up with Dr. Castillo. D/w TCC. Plans for discharge to SNF. Jo-Ann Ortiz MD [facility] [id number] 04-28-2025 [id number] Skilled Nursing/SNF - Return [facility] [employer] [facility] [address] [facility] [phone] [id number] Patient/Family Choice [facility] [phone] Next Site of Care Admission Date: 04/21/2025 09:56 PM Patient Name: ANMOL REYNOLDS [facility] [id number] A Date of : 1960 ------- Placement Information ------- Referral Type:Skilled Nursing/SNF - Return Referral ID:[id number] Provider Name:[facility] Address 1:[address] Address 2: City:[place] Selection Factors:Patient/Famil y Choice State:[place] Normal [facility] [phone] Confirmed pickup mingo e of 5:30pm on 04/28/25 by transport company [employer] at phone number [phone]. Location of facility drop off is [facility]. Facility notified via [employer], [facility] notified on secure chat. [facility] [phone] Transport requested in [employer] in will call to [facility] per [facility]. [facility] Bacteria identified Aer cx N om (Unsp spec)on 04-28-2025 Gram Stain Result Many Polymorphonuclear leukocytes per low power field Abnormal [facility] Gram Stain Result Positive Abnormal [facility] ealt Interpretation and review of laboratory results Abnormal [facility] Laboratory - Chemistry and C hemistry - challengeon 04-28-2025 Glucose [Mass/Vol] 212 mg/dL High 70 - 100 mg/dL [facility] Glucose [Mass/Vol] 183 mg/dL High 70 - 100 mg/dL [facility] Glucose [Mass/Vol] 152 mg/dL High 70 - 100 mg/dL [facility] Laboratory - Microbiology an d Antimicrobial susceptibilityon 04-28-2025 Bacteria identified Aer cx Nom (Unsp spec) Rare skin gosia present [facility] Bacteria identified Aer cx Nom (Unsp spec) Moderate Enterococcus raffinosus Abnormal [facility] Bacteria identified Aer cx Nom (Unsp spec) Rare Proteus mirabilis Abnormal [facility] No Panel Informationon 04-28 Interpretation and review of laboratory results Abnormal [facility] Performed by: [address] [address] CLIA ID: [id number] [facility] Interpretation and review of laboratory results Abnormal [facility] Performed by: [facility], [address] [place] [id number] CLIA ID: [id number] [facility] Interpretation and review of laboratory results Abnormal [facility] Performed by: [address] [address] CLIA ID: [id number] [facility] Nursing Noteon 04-28-2025 Nursing Note Called report to the [facility]. PICC line clean dry and intact. Aide got pt ready and gathered all belongings. Waiting on transport to arrive. Normal [facility] 30on 04-27-2025 [address] Castillo- s/p L ischial wound debridement with osteomyelitis. Additional organisms are being reported on OR cx. E raffinosus, Proteus, MRSA, Clostridium ramosum, enteric gosia, and skin gosia. Await Proteus sensitivities prior to completion of OPAT. Will provide final recommendations tomorrow. D/w TCC. Jo-Ann Ortiz MD Normal [facility] BASIC METABOLIC PANELon 04-05 Anion gap [Moles/Vol] 3 mmol/L Normal 3-13 [facility] Comment on above: Performed By: #### L [id number] ####Human Resource Management Instructor: BIANCA [id number])[facility] [place] [address] [place] Calcium [Mass/Vol] 8.6 mg/dL Low 8.8-10.0 [facility] Comment on above: Performed By: #### L [id number] ####Human Resource Management Instructor: BIANCA [phone])[facility] ([facility])[address] [place] [address] Chloride [Moles/Vol] 104 mmol/L Normal 98-107 [facility] Comment on above: Performed By: #### L AB15 ####Human Resource Management Instructor: BIANCA [phone])[facility] ([facility])[address] [place] [address] CO2 [Moles/Vol] 29 mmol/L Normal 23-31 [facility] Comment on above: Performed By: #### L [id number] ####Human Resource Management Instructor: BIANCA NICHOLS ([phone])[facility] [place] [address] Creatinine [Mass/Vol] 0.64 mg/dL Low 0.72-1.25 [facility] Comment on above: Performed By: #### L AB15 ####Human Resource Management Instructor: BIANCA NICHOLS ([id number])[facility])[address] [place] [address] GLOMERULAR FILTRATION RATE ML/MIN/1.73 SQ M.PREDICTED >90.0 Normal >60.0 [facility] Comment on above: Result Comment: Calc ulation based on the Chronic Kidney Disease Epidemiology Collaboration (CKD-EPI) equation refit without adjustment for race Performed By: #### L AB15 ####Human Resource Management Instructor: BIANCA NICHOLS ([phone])[facility] ([facility])[address] [place] [address] Glucose [Mass/Vol] 96 mg/dL Normal 82-115 [facility] Comment on above: Performed By: #### L AB15 ####Human Resource Management Instructor: BIANCA NICHOLS ([phone])[facility])[address] [place] [address] Potassium [Moles/Vol] 4.0 mmol/L Normal 3.5-5.1 [facility] Comment on above: Result Comment: [facility] potassium values may be up to 0.5 mmol/L lower than serum values. Performed By: #### L AB15 ####Human Resource Management Instructor: BIANCA NICHOLS ([phone])[facility])[address] [place] [address] [place] Sodium [Moles/Vol] 136 mmol/L Normal 136-145 [facility] Comment on above: Performed By: #### L AB15 ####Human Resource Management Instructor: BIANCA NICHOLS ([id number])[facility] ([facility])[address] [place] [address] Urea nitrogen [Mass/Vol] 21 mg/dL Normal 06-27 [facility] Comment on above: Performed By: #### L AB15 ####Human Resource Management Instructor: BIANCA NICHOLS ([phone])[facility] ([facility])[address] [place] [address] Bacteria identified Aer cx N om (Unsp spec)on 04-27-2025 Gram Stain Result Few Polymorphonuclea r leukocytes per low power field [facility] Gram Stain Result No organisms seen [facility] Interpretation and review of laboratory results Abnormal [facility] Bacteria identified Anaer cx Nom (Unsp spec)Ordered By: Vijaya Mariscal on 04-27-2025 Interpretation and review of laboratory results Abnormal [facility] Bacteria identified Cx Nom ( Bld)on 04-27-2025 Interpretation and review of laboratory results Normal [facility] Blood Collection Site: Right Forearm [facility] Blood Collection Site: Left PICC Purple Lumen [facility] Basic metabolic 1998 panelon 04-27-2025 Anion gap [Moles/Vol] 3 mmol/L 3 - 13 mmol/L [facility] Calcium [Mass/Vol] 8.6 mg/dL Low 8.8 - 10. 0 mg/dL [facility] Chloride [Moles/Vol] 104 mmol/L 98 - 10 7 mmol/L [facility] CO2 [Moles/Vol] 29 mmol/L 23 - 31 mmol/L [facility] Creatinine [Mass/Vol] 0.64 mg/dL Low 0.72 - 1.25 mg/dL [facility] GFR/1.73 sq M.predicted (S/P/Bld) [Vol rate/Area] - PINF [facility] Comment on above: Calculation based on the Chronic Kidney Disease Epidemiology Collaboration (CKD-EPI) equation refit without adjustment for race Glucose [Mass/Vol] 96 mg/dL 82 - 115 mg/dL [facility] Interpretation and review of laboratory results Abnormal [facility] Potassium [Moles/Vol] 4 mmol/L 3.5 - 5.1 mmol/L [facility] Comment on above: Plasma potassium leonie ues may be up to 0.5 mmol/L lower than serum values. Sodium [Moles/Vol] 136 mmol/L 136 - 145 mmol/L [facility] Urea nitrogen [Mass/Vol] 21 mg/dL 9 - 23 mg/dL [facility] CBC W Auto Differential pane l (Bld)on 04-27-2025 Basophils (Bld) [#/Vol] 0.1 10*3/uL 0.0 - 0.2 10*3/uL [facility] Basophils/100 WBC (Bld) 0.8 % 0.0 - 2.0 % [facility] Eosinophils (Bld) [#/Vol] 0.4 10*3/uL 0.0 - 0.5 10*3/uL [facility] Eosinophils/100 WBC (Bld) 5.3 % 0.0 - 6.0 % [facility] Erythrocyte distribution width (RBC) [Ratio] 14.9 % 11.5 - 15.0 % [facility] Hematocrit (Bld) [Volume fraction] 34 % Low 40.0 - 52.0 % [facility] Hemoglobin (Bld) [Mass/Vol] 10.9 g/dL Low 13.0 - 18.0 g/dL [facility] Immature granulocytes (Bld) [#/Vol] 0 10*3/uL NINF - 0.1 10*3/uL [facility] Immature granulocytes/100 WBC (Bld) 0.5 % 0.0 - 2.0 % [facility] Interpretation and review of laboratory results Abnormal [facility] Lymphocytes (Bld) [#/Vol] 2.9 10*3/uL 1.0 - 4.3 10*3/uL [facility] Lymphocytes/100 WBC (Bld) 36.4 % 15.0 - 45.0 % [facility] MCH (RBC) [Entitic mass] 28.8 pg 26. 0 - 34.0 pg [facility] MCHC (RBC) [Mass/Vol] 32.1 % 30.5 - 36.0 % [facility] MCV (RBC) [Entitic vol] 89.9 fL 77.0 - 99.0 fL [facility] Monocytes (Bld) [#/Vol] 0.7 10*3/uL 0.0 - 0.9 10*3/uL [facility] Monocytes/100 WBC (Bld) 8.2 % 5.0 - 13.0 % [facility] Neutrophils (Bld) [#/Vol] 3.9 10*3/uL 1.8 - 7.5 10*3/uL [facility] Neutrophils/100 WBC (Bld) 48.8 % 38.0 - 82.0 % [facility] Nucleated RBC/100 WBC (Bld) [Ratio] 0 % [facility] Platelet mean volume (Bld) [Entitic vol] 9.5 fL 9.0 - 12.7 fL [facility] Platelets (Bld) [#/Vol] 363 10*3/uL 140 - 440 10*3/uL [facility] RBC (Bld) [#/Vol] 3.78 10*6/uL Low 4.40 - 5.9 0 10*6/uL [facility] WBC (Bld) [#/Vol] 8 10*3/uL 3.6 - 10.7 10*3/uL [facility] CBC WITH AUTO DIFFERENTIALon 04-27-2025 Basophils (Bld) [#/Vol] 0.1 10*3/uL Normal 0.0-0.2 [facility] Comment on above: Performed By: #### L [id number] ####Human Resource Management Instructor: BIANCA NICHOLS ([id number])[facility])[address] [place] [address] Basophils/100 WBC (Bld) 0.8 % Normal 0.0-2.0 S [facility] Comment on above: Performed By: #### L [id number] ####Human Resource Management Instructor: BIANCA [phone])[facility])[address] [place] [address] Eosinophils (Bld) [#/Vol] 0.4 10*3/uL Normal 0.0-0.5 [facility] Comment on above: Performed By: #### L [id number] ####Human Resource Management Instructor: BIANCA NICHOLS ([phone])[facility])[address] [place] [address] [place] Eosinophils/100 WBC (Bld) 5.3 % Normal 0.0-6.0 [facility] Comment on above: Performed By: #### L [id number] ####Human Resource Management Instructor: BIANCA [phone])[facility] [address] Erythrocyte distribution width (RBC) [Ratio] 14.9 % Normal 11.5-15.0 [facility] Comment on above: Performed By: #### L [id number] ####Human Resource Management Instructor: BIANCA NICHOLS ([phone])[facility])[address] [place] [address] Hematocrit (Bld) [Volume fraction] 34.0 % Low 40.0-52.0 [facility] Comment on above: Performed By: #### L [id number] ####Human Resource Management Instructor: BIANCA NICHOLS ([phone])[address] Hemoglobin (Bld) [Mass/Vol] 10.9 g/dL Low 13.0-18.0 [facility] Comment on above: Performed By: #### L [id number] ####Human Resource Management Instructor: BIANCA NICHOLS ([phone])[facility])[address] [place] [address] IMMATURE GRANS % 0.5 % Normal 0.0-2.0 [facility] Comment on above: Performed By: #### L [id number] ####Human Resource Management Instructor: BIANCA NICHOLS ([id number])[facility])[address] [place] [address] IMMATURE GRANS ABSOLUTE 0.0 10*3/uL Normal <0.1 [facility] Comment on above: Performed By: #### L [id number] ####Human Resource Management Instructor: BIANCA NICHOLS ([id number])[facility])[address] [place] [address] Lymphocytes (Bld) [#/Vol] 2.9 10*3/uL Normal 1.0-4.3 [facility] Comment on above: Performed By: #### L [id number] ####Human Resource Management Instructor: BIANCA NICHOLS ([id number])[facility])[address] [place] [address] Lymphocytes/100 WBC (Bld) 36.4 % Normal 15.0-45.0 [facility] Comment on above: Performed By: #### L [id number] ####Human Resource Management Instructor: BIANCA NICHOLS ([phone])[facility])[address] [place] [address] MCH (RBC) [Entitic mass] 28.8 pg Normal 26.0-34.0 [facility] Comment on above: Performed By: #### L [id number] ####Human Resource Management Instructor: BIANCA NICHOLS ([phone])[facility])[address] [place] [address] MCHC 32.1 % Normal 30.5-36.0 [facility] Comment on above: Performed By: #### L [id number] ####Human Resource Management Instructor: BIANCA NICHOLS ([phone])[facility])[address] [place] [address] MCV (RBC) [Entitic vol] 89.9 fL Normal 77.0-99.0 S [facility] Comment on above: Performed By: #### L [id number] ####Human Resource Management Instructor: BIANCA NICHOLS ([id number])[facility])[address] [place] [address] Monocytes (Bld) [#/Vol] 0.7 10*3/uL Normal 0.0-0.9 [facility] Comment on above: Performed By: #### L [id number] ####Human Resource Management Instructor: BIANCA NICHOLS ([phone])[facility])[address] [place] [address] Monocytes/100 WBC (Bld) 8.2 % Normal 5.0-13.0 S [facility] Comment on above: Performed By: #### L [id number] ####Human Resource Management Instructor: BIANCA NICHOLS ([phone])[facility])[address] [place] [address] NEUTROPHILS ABSOLUTE 3.9 10*3/uL Normal 1.8-7.5 [facility] Comment on above: Performed By: #### L [id number] ####Human Resource Management Instructor: BIANCA NICHOLS ([id number])[facility] ([facility])[address] [place] [address] Neutrophils/100 WBC (Bld) 48.8 % Normal 38.0-82.0 [facility] Comment on above: Performed By: #### L [id number] ####Human Resource Management Instructor: BIANCA NICHOLS ([phone])[facility] ([facility])[address] [place] [address] NRBC 0.0 /100 WBCs Normal 0.0-2.0 [facility] Comment on above: Performed By: #### L [id number] ####Human Resource Management Instructor: BIANCA NICHOLS ([phone])[facility] ([facility])[address] [place] [address] Platelet mean volume (Bld) [Entitic vol] 9.5 fL Normal 9.0-12.7 [facility] Comment on above: Performed By: #### L [id number] ####Human Resource Management Instructor: BIANCA NICHOLS ([id number])[facility] ([facility])[address] [place] [address] Platelets (Bld) [#/Vol] 363 10*3/uL Normal 140-440 [facility] Comment on above: Performed By: #### L [id number] ####Human Resource Management Instructor: BIANCA NICHOLS ([phone])[facility] ([facility])[address] [place] [address] RBC (Bld) [#/Vol] 3.78 10*6/uL Low 4.40-5.90 [facility] Comment on above: Performed By: #### L [id number] ####Human Resource Management Instructor: BIANCA NICHOLS ([phone])[facility] ([facility])[address] [place] [address] [place] WBC (Bld) [#/Vol] 8.0 10*3/uL Normal 3.6-10.7 [facility] Comment on above: Performed By: #### L [id number] ####Human Resource Management Instructor: BIANCA NICHOLS ([id number])[facility])[address] [place] [address] Laboratory - Chemistry and C hemistry - challengeon 04-27-2025 Glucose [Mass/Vol] 146 mg/dL High 70 - 100 mg/dL [facility] Glucose [Mass/Vol] 228 mg/dL High 70 - 100 mg/dL [facility] Glucose [Mass/Vol] 265 mg/dL High 70 - 100 mg/dL [facility] Glucose [Mass/Vol] 137 mg/dL High 70 - 100 mg/dL [facility] Laboratory - Microbiology an d Antimicrobial susceptibilityOrdered By: Vijaya Mariscal on 04-27-2025 Bacteria identified Anaer cx Nom (Unsp spec) Moderate Anaerobic Gram-negative bacilli, not B. fragilis Abnormal [facility] Laboratory - Microbiology an d Antimicrobial susceptibilityon 04-27-2025 Bacteria identified Aer cx Nom (Unsp spec) Rare Enterococcus raffinosus Abnormal [facility] Bacteria identified Cx Nom (Bld) No growth at 5 days [facility] No Panel Informationon 04-27 Interpretation and review of laboratory results Abnormal [facility] Performed by: [place] [address] CLIA ID: [id number] [facility] Interpretation and review of laboratory results Abnormal [facility] Performed by: [place] [address] CLIA ID: [id number] [facility] Interpretation and review of laboratory results Abnormal [facility] Performed by: [address] [address] CLIA ID: [id number] [facility] Interpretation and review of laboratory results Abnormal [facility] Performed by: [address] [address] CLIA ID: [id number] [facility] Nursing Noteon 04-27-2025 Nursing Note Patient dressings changed as per orders. Patient tolerated well. Left PICC dressing changed patient tolerated well Normal [facility] BASIC METABOLIC PANELon 04-05 Anion gap [Moles/Vol] 6 mmol/L Normal 3-13 [facility] Comment on above: Performed By: #### L [id number] ####Human Resource Management Instructor: BIANCA NICHOLS ([phone])[facility])[address] [place] [address] Calcium [Mass/Vol] 8.5 mg/dL Low 8.8-10.0 [facility] Comment on above: Performed By: #### L [id number] ####Human Resource Management Instructor: BIANCA NICHOLS ([id number])[facility])[address] [place] [address] Chloride [Moles/Vol] 103 mmol/L Normal 98-107 [facility] Comment on above: Performed By: #### L [id number] ####Human Resource Management Instructor: BIANCA NICHOLS ([phone])[facility] ([facility])[address] [place] [address] CO2 [Moles/Vol] 27 mmol/L Normal 23-31 [facility] Comment on above: Performed By: #### L [id number] ####Human Resource Management Instructor: BIANCA NICHOLS ([phone])[facility] ([facility])[address] [place] [address] Creatinine [Mass/Vol] 0.62 mg/dL Low 0.72-1.25 [facility] Comment on above: Performed By: #### L [id number] ####Human Resource Management Instructor: BIANCA NICHOLS ([id number])[facility])[address] [place] [address] GLOMERULAR FILTRATION RATE ML/MIN/1.73 SQ M.PREDICTED >90.0 Normal >60.0 [facility] Comment on above: Result Comment: Calc ulation based on the Chronic Kidney Disease Epidemiology Collaboration (CKD-EPI) equation refit without adjustment for race Performed By: #### L [id number] ####Human Resource Management Instructor: BIANCA NICHOLS ([phone])[facility] ([facility])[address] [place] [address] [place] Glucose [Mass/Vol] 155 mg/dL High 82-115 [facility] Comment on above: Performed By: #### L [id number] ####Human Resource Management Instructor: BIANCA NICHOLS ([id number])[facility] ([facility])[address] [place] [address] [place] Potassium [Moles/Vol] 4.0 mmol/L Normal 3.5-5.1 [facility] Comment on above: Result Comment: [facility] potassium values may be up to 0.5 mmol/L lower than serum values. Performed By: #### L [id number] ####Human Resource Management Instructor: BIANCA NICHOLS ([phone])[facility] ([facility])[address] [place] [address] Sodium [Moles/Vol] 136 mmol/L Normal 136-145 [facility] Comment on above: Performed By: #### L [id number] ####Human Resource Management Instructor: BIANCA NICHOLS ([id number])[facility] ([facility])[address] [place] [address] Urea nitrogen [Mass/Vol] 19 mg/dL Normal 9-23 [facility] Comment on above: Performed By: #### L [id number] ####Human Resource Management Instructor: BIANCA NICHOLS ([phone])[facility] ([facility])[address] [place] [address] Basic metabolic 1998 panelon 04-26-2025 Anion gap [Moles/Vol] 6 mmol/L 3 - 13 mmol/L [facility] [employer] Calcium [Mass/Vol] 8.5 mg/dL Low 8.8 - 10. 0 mg/dL [facility] [employer] Chloride [Moles/Vol] 103 mmol/L 98 - 10 7 mmol/L [facility] CO2 [Moles/Vol] 27 mmol/L 23 - 31 mmol/L [facility] Creatinine [Mass/Vol] 0.62 mg/dL Low 0.72 - 1.25 mg/dL [facility] GFR/1.73 sq M.predicted (S/P/Bld) [Vol rate/Area] - PINF [facility] Comment on above: Calculation based on the Chronic Kidney Disease Epidemiology Collaboration (CKD-EPI) equation refit without adjustment for race Glucose [Mass/Vol] 155 mg/dL High 82 - 115 mg/dL [facility] Interpretation and review of laboratory results Abnormal [facility] Potassium [Moles/Vol] 4 mmol/L 3.5 - 5.1 mmol/L [facility] Comment on above: Plasma potassium leonie ues may be up to 0.5 mmol/L lower than serum values. Sodium [Moles/Vol] 136 mmol/L 136 - 145 mmol/L [facility] Urea nitrogen [Mass/Vol] 19 mg/dL 9 - 23 mg/dL [facility] CBC (HEMOGRAM)on 04-26-2025 Erythrocyte distribution width (RBC) [Ratio] 14.8 % Normal 11.5-15.0 [facility] Comment on above: Performed By: #### L [id number] ####Human Resource Management Instructor: BIANCA NICHOLS ([id number])[facility])[address] [place] [address] Hematocrit (Bld) [Volume fraction] 33.8 % Low 40.0-52.0 [facility] Comment on above: Performed By: #### L [id number] ####Human Resource Management Instructor: BIANCA NICHOLS ([phone])[address] Hemoglobin (Bld) [Mass/Vol] 11.0 g/dL Low 13.0-18.0 [facility] Comment on above: Performed By: #### L [id number] ####Human Resource Management Instructor: BIANCA NICHOLS ([phone])[address] MCH (RBC) [Entitic mass] 29.3 pg Normal 26.0-34.0 [facility] Comment on above: Performed By: #### L [id number] ####Human Resource Management Instructor: BIANCA NICHOLS ([id number])[address] MCHC 32.5 % Normal 30.5-36.0 [facility] Comment on above: Performed By: #### L [id number] ####Human Resource Management Instructor: BIANCA [phone])[address] MCV (RBC) [Entitic vol] 89.9 fL Normal 77.0-99.0 S [facility] Comment on above: Performed By: #### L [id number] ####Human Resource Management Instructor: BIANCA [id number])[facility] ([facility])[address] [place] [address] Platelet mean volume (Bld) [Entitic vol] 9.5 fL Normal 9.0-12.7 [facility] Comment on above: Performed By: #### L [id number] ####Human Resource Management Instructor: BIANCA NICHOLS ([phone])[facility])[address] [place] [address] Platelets (Bld) [#/Vol] 386 10*3/uL Normal 140-440 [facility] Comment on above: Performed By: #### L [id number] ####Human Resource Management Instructor: BIANCA NICHOLS ([phone])[facility])[address] [place] [address] RBC (Bld) [#/Vol] 3.76 10*6/uL Low 4.40-5.90 [facility] Comment on above: Performed By: #### L [id number] ####Human Resource Management Instructor: BIANCA NICHOLS ([phone])[facility] ([facility])[address] [place] [address] WBC (Bld) [#/Vol] 7.3 10*3/uL Normal 3.6-10.7 [facility] Comment on above: Performed By: #### L [id number] ####Human Resource Management Instructor: BIANCA NICHOLS ([id number])[facility])[address] [place] [address] CBC panel Auto (Bld)on 04-26 Erythrocyte distribution width (RBC) [Ratio] 14.8 % 11.5 - 15.0 % [facility] Hematocrit (Bld) [Volume fraction] 33.8 % Low 40.0 - 52.0 % [facility] Hemoglobin (Bld) [Mass/Vol] 11 g/dL Low 13.0 - 18.0 g/dL [facility] Interpretation and review of laboratory results Abnormal [facility] MCH (RBC) [Entitic mass] 29.3 pg 26. 0 - 34.0 pg [facility] MCHC (RBC) [Mass/Vol] 32.5 % 30.5 - 36.0 % [facility] MCV (RBC) [Entitic vol] 89.9 fL 77.0 - 99.0 fL [facility] Platelet mean volume (Bld) [Entitic vol] 9.5 fL 9.0 - 12.7 fL [facility] Platelets (Bld) [#/Vol] 386 10*3/uL 140 - 440 10*3/uL [facility] RBC (Bld) [#/Vol] 3.76 10*6/uL Low 4.40 - 5.9 0 10*6/uL [facility] WBC (Bld) [#/Vol] 7.3 10*3/uL 3.6 - 10.7 10*3/uL [facility] IRON AND TIBCon 04-26-2025 IRON BINDING CAPACITY 136 ug/dL Low 250-450 [facility] Comment on above: Performed By: #### L [id number] ####Human Resource Management Instructor: BIANCA NICHOLS ([phone])[facility] ([facility])[address] [place] [address] IRON SATURATION 44.1 % Normal 20.0-50.0 [facility] Comment on above: Performed By: #### L [id number] ####Human Resource Management Instructor: BIANCA NICHOLS ([phone])[facility])[address] [place] [address] IRON, TOTAL 60 ug/dL Low 65-175 [facility] Comment on above: Performed By: #### L [id number] ####Human Resource Management Instructor: BIANCA NICHOLS ([phone])[facility])[address] [place] [address] Iron and Iron binding capaci ty panelon 04-26-2025 Interpretation and review of laboratory results Abnormal [facility] Iron [Mass/Vol] 60 ug/dL Low 65 - 175 ug/dL [facility] Iron binding capacity [Mass/Vol] 136 ug/dL Low 250 - 450 ug/dL [facility] Iron saturation [Mass fraction] 44.1 % 20.0 - 50.0 % [facility] Laboratory - Chemistry and C hemistry - challengeon 04-26-2025 Glucose [Mass/Vol] 244 mg/dL High 70 - 100 mg/dL [facility] Glucose [Mass/Vol] 199 mg/dL High 70 - 100 mg/dL [facility] Glucose [Mass/Vol] 219 mg/dL High 70 - 100 mg/dL [facility] Glucose [Mass/Vol] 185 mg/dL High 70 - 100 mg/dL [facility] No Panel Informationon 04-26 Interpretation and review of laboratory results Abnormal [facility] Performed by: [address] [address] CLIA ID: [id number] [facility] Interpretation and review of laboratory results Abnormal [facility] Performed by: [address] [address] CLIA ID: [id number] [facility] Interpretation and review of laboratory results Abnormal [facility] Performed by: [address] [address] CLIA ID: [id number] [facility] [employer] [facility] Interpretation and review of laboratory results Abnormal [facility] Performed by: [address] [address] CLIA ID: [id number] [facility] [employer] BASIC METABOLIC PANELon 04-05 Anion gap [Moles/Vol] 7 mmol/L Normal 3-13 [facility] Comment on above: Performed By: #### L [id number] ####Human Resource Management Instructor: BIANCA NICHOLS ([phone])[facility])[address] [place] [address] Calcium [Mass/Vol] 8.2 mg/dL Low 8.8-10.0 [facility] Comment on above: Performed By: #### L [id number] ####Human Resource Management Instructor: BIANCA NICHOLS ([phone])[facility])[address] [place] [address] [place] Chloride [Moles/Vol] 101 mmol/L Normal 98-107 [facility] Comment on above: Performed By: #### L [id number] ####Human Resource Management Instructor: BIANCA NICHOLS ([phone])[facility])[address] [place] [address] [place] CO2 [Moles/Vol] 26 mmol/L Normal 23-31 [facility] Comment on above: Performed By: #### L [id number] ####Human Resource Management Instructor: BIANCA NICHOLS ([phone])[facility])[address] [place] [address] Creatinine [Mass/Vol] 0.73 mg/dL Normal 0.72-1.25 [facility] Comment on above: Performed By: #### L [id number] ####Human Resource Management Instructor: BIANCA NICHOLS ([phone])[facility])[address] [place] [address] GLOMERULAR FILTRATION RATE ML/MIN/1.73 SQ M.PREDICTED >90.0 Normal >60.0 [facility] Comment on above: Result Comment: Calc ulation based on the Chronic Kidney Disease Epidemiology Collaboration (CKD-EPI) equation refit without adjustment for race Performed By: #### L [id number] ####Human Resource Management Instructor: BIANCA NICHOLS ([id number])[facility])[address] [place] [address] Glucose [Mass/Vol] 213 mg/dL High 82-115 [facility] Comment on above: Performed By: #### L [id number] ####Human Resource Management Instructor: BIANCA NICHOLS ([phone])[facility])[address] [place] [address] Potassium [Moles/Vol] 4.3 mmol/L Normal 3.5-5.1 [facility] Comment on above: Result Comment: [facility] potassium values may be up to 0.5 mmol/L lower than serum values. Performed By: #### L [id number] ####Human Resource Management Instructor: BIANCA NICHOLS ([phone])[facility])[address] [place] [address] [place] Sodium [Moles/Vol] 134 mmol/L Low 136-145 [facility] Comment on above: Performed By: #### L [id number] ####Human Resource Management Instructor: BIANCA NICHOLS ([id number])[facility])[address] [place] [address] Urea nitrogen [Mass/Vol] 14 mg/dL Normal 9-23 [facility] Comment on above: Performed By: #### L [id number] ####Human Resource Management Instructor: BIANCA NICHOLS ([phone])[facility] ([facility] Bacteria identified Aer cx N om (Unsp spec)Ordered By: Joy York on 04-25-2025 Gram Stain Result Many Polymorphonuclear leukocytes per low power field Abnormal [facility] Gram Stain Result Negative Abnormal [facility] Gram Stain Result Positive Abnormal [facility] Interpretation and review of laboratory results Abnormal [facility] PBP2A Positive [facility] Basic metabolic 1998 panelon 04-25-2025 Anion gap [Moles/Vol] 7 mmol/L 3 - 13 mmol/L [facility] Calcium [Mass/Vol] 8.2 mg/dL Low 8.8 - 10. 0 mg/dL [facility] Chloride [Moles/Vol] 101 mmol/L 98 - 10 7 mmol/L [facility] CO2 [Moles/Vol] 26 mmol/L 23 - 31 mmol/L [facility] Creatinine [Mass/Vol] 0.73 mg/dL 0.72 - 1.25 mg/dL [facility] GFR/1.73 sq M.predicted (S/P/Bld) [Vol rate/Area] - PINF [facility] Comment on above: Calculation based on the Chronic Kidney Disease Epidemiology Collaboration (CKD-EPI) equation refit without adjustment for race Glucose [Mass/Vol] 213 mg/dL High 82 - 115 mg/dL [facility] Interpretation and review of laboratory results Abnormal [facility] Potassium [Moles/Vol] 4.3 mmol/L 3.5 - 5.1 mmol/L [facility] Comment on above: Plasma potassium leonie ues may be up to 0.5 mmol/L lower than serum values. Sodium [Moles/Vol] 134 mmol/L Low 136 - 145 mmol/L [facility] Urea nitrogen [Mass/Vol] 14 mg/dL 9 - 23 mg/dL [facility] CBC W Auto Differential pane l (Bld)on 04-25-2025 Basophils (Bld) [#/Vol] 0 10*3/uL 0.0 - 0.2 10*3/uL [facility] Basophils/100 WBC (Bld) 0.4 % 0.0 - 2.0 % [facility] Eosinophils (Bld) [#/Vol] 0.1 10*3/uL 0.0 - 0.5 10*3/uL [facility] Eosinophils/100 WBC (Bld) 0.8 % 0.0 - 6.0 % [facility] Erythrocyte distribution width (RBC) [Ratio] 14.8 % 11.5 - 15.0 % [facility] Hematocrit (Bld) [Volume fraction] 32.6 % Low 40.0 - 52.0 % [facility] Hemoglobin (Bld) [Mass/Vol] 10.4 g/dL Low 13.0 - 18.0 g/dL [facility] Immature granulocytes (Bld) [#/Vol] 0 10*3/uL NINF - 0.1 10*3/uL [facility] Immature granulocytes/100 WBC (Bld) 0.4 % 0.0 - 2.0 % [facility] Interpretation and review of laboratory results Abnormal [facility] Lymphocytes (Bld) [#/Vol] 2 10*3/uL 1.0 - 4.3 10*3/uL [facility] Lymphocytes/100 WBC (Bld) 20.7 % 15.0 - 45.0 % [facility] MCH (RBC) [Entitic mass] 28.7 pg 26. 0 - 34.0 pg [facility] MCHC (RBC) [Mass/Vol] 31.9 % 30.5 - 36.0 % [facility] MCV (RBC) [Entitic vol] 90.1 fL 77.0 - 99.0 fL [facility] Monocytes (Bld) [#/Vol] 0.9 10*3/uL 0.0 - 0.9 10*3/uL [facility] Monocytes/100 WBC (Bld) 9.3 % 5.0 - 13.0 % [facility] Neutrophils (Bld) [#/Vol] 6.5 10*3/uL 1.8 - 7.5 10*3/uL [facility] Neutrophils/100 WBC (Bld) 68.4 % 38.0 - 82.0 % [facility] Nucleated RBC/100 WBC (Bld) [Ratio] 0 % [facility] Platelet mean volume (Bld) [Entitic vol] 9.9 fL 9.0 - 12.7 fL [facility] Platelets (Bld) [#/Vol] 421 10*3/uL 140 - 440 10*3/uL [facility] RBC (Bld) [#/Vol] 3.62 10*6/uL Low 4.40 - 5.9 0 10*6/uL [facility] WBC (Bld) [#/Vol] 9.5 10*3/uL 3.6 - 10.7 10*3/uL [facility] CBC WITH AUTO DIFFERENTIALon 04-25-2025 Basophils (Bld) [#/Vol] 0.0 10*3/uL Normal 0.0-0.2 [facility] Comment on above: Performed By: #### L [id number] ####Human Resource Management Instructor: BIANCA NICHOLS ([phone])[facility] ([facility])[address] [place] [address] Basophils/100 WBC (Bld) 0.4 % Normal 0.0-2.0 S [facility] Comment on above: Performed By: #### L [id number] ####Human Resource Management Instructor: BIANCA NICHOLS ([phone])[facility] ([facility])[address] [place] [address] [place] Eosinophils (Bld) [#/Vol] 0.1 10*3/uL Normal 0.0-0.5 [facility] Comment on above: Performed By: #### L [id number] ####Human Resource Management Instructor: BIANCA NICHOLS ([phone])[facility] ([facility])[address] [place] [address] Eosinophils/100 WBC (Bld) 0.8 % Normal 0.0-6.0 [facility] Comment on above: Performed By: #### L [id number] ####Human Resource Management Instructor: BIANCA NICHOLS ([id number])[facility] ([facility])[address] [place] [address] [place] Erythrocyte distribution width (RBC) [Ratio] 14.8 % Normal 11.5-15.0 [facility] Comment on above: Performed By: #### L [id number] ####Human Resource Management Instructor: BIANCA [id number])[facility] ([address] Hematocrit (Bld) [Volume fraction] 32.6 % Low 40.0-52.0 [facility] Comment on above: Performed By: #### L [id number] ####Human Resource Management Instructor: BIANCA NICHOLS ([phone])[facility])[address] [place] [address] Hemoglobin (Bld) [Mass/Vol] 10.4 g/dL Low 13.0-18.0 [facility] Comment on above: Performed By: #### L [id number] ####Human Resource Management Instructor: BIANCA NICHOLS ([id number])[facility])[address] [place] [address] IMMATURE GRANS % 0.4 % Normal 0.0-2.0 [facility] Comment on above: Performed By: #### L [id number] ####Human Resource Management Instructor: BIANCA NICHOLS ([phone])[facility])[address] [place] [address] IMMATURE GRANS ABSOLUTE 0.0 10*3/uL Normal <0.1 [facility] Comment on above: Performed By: #### L [id number] ####Human Resource Management Instructor: BIANCA NICHOLS ([phone])[facility])[address] [place] [address] Lymphocytes (Bld) [#/Vol] 2.0 10*3/uL Normal 1.0-4.3 [facility] Comment on above: Performed By: #### L [id number] ####Human Resource Management Instructor: BIANCA NICHOLS ([phone])[facility])[address] [place] [address] Lymphocytes/100 WBC (Bld) 20.7 % Normal 15.0-45.0 [facility] Comment on above: Performed By: #### L [id number] ####Human Resource Management Instructor: BIANCA NICHOLS ([phone])[facility])[address] [place] [address] MCH (RBC) [Entitic mass] 28.7 pg Normal 26.0-34.0 [facility] Comment on above: Performed By: #### L [id number] ####Human Resource Management Instructor: BIANCA NICHOLS ([phone])[facility])[address] [place] [address] MCHC 31.9 % Normal 30.5-36.0 [facility] Comment on above: Performed By: #### L [id number] ####Human Resource Management Instructor: BIANCA NICHOLS ([phone])[facility])[address] [place] [address] MCV (RBC) [Entitic vol] 90.1 fL Normal 77.0-99.0 S [facility] Comment on above: Performed By: #### L [id number] ####Human Resource Management Instructor: BIANCA NICHOLS ([phone])[facility])[address] [place] [address] Monocytes (Bld) [#/Vol] 0.9 10*3/uL Normal 0.0-0.9 [facility] Comment on above: Performed By: #### L [id number] ####Human Resource Management Instructor: BIANCA NICHOLS ([id number])[facility])[address] [place] [address] Monocytes/100 WBC (Bld) 9.3 % Normal 5.0-13.0 S [facility] Comment on above: Performed By: #### L [id number] ####Human Resource Management Instructor: BIANCA NICHOLS ([phone])[facility])[address] [place] [address] NEUTROPHILS ABSOLUTE 6.5 10*3/uL Normal 1.8-7.5 [facility] Comment on above: Performed By: #### L [id number] ####Human Resource Management Instructor: BIANCA NICHOLS ([phone])[facility])[address] [place] [address] Neutrophils/100 WBC (Bld) 68.4 % Normal 38.0-82.0 [facility] Comment on above: Performed By: #### L [id number] ####Human Resource Management Instructor: BIANCA [phone])[facility] ([facility])[address] [place] [address] NRBC 0.0 /100 WBCs Normal 0.0-2.0 [facility] Comment on above: Performed By: #### L [id number] ####Human Resource Management Instructor: BIANCA NICHOLS ([id number])[facility])[address] [place] [address] Platelet mean volume (Bld) [Entitic vol] 9.9 fL Normal 9.0-12.7 [facility] Comment on above: Performed By: #### L [id number] ####Human Resource Management Instructor: BIANCA NICHOLS ([phone])[facility])[address] [place] [address] Platelets (Bld) [#/Vol] 421 10*3/uL Normal 140-440 [facility] Comment on above: Performed By: #### L [id number] ####Human Resource Management Instructor: BIANCA NICHOLS ([phone])[facility] ([facility])[address] [place] [address] RBC (Bld) [#/Vol] 3.62 10*6/uL Low 4.40-5.90 [facility] Comment on above: Performed By: #### L [id number] ####Human Resource Management Instructor: BIANCA NICHOLS ([phone])[facility])[address] [place] [address] WBC (Bld) [#/Vol] 9.5 10*3/uL Normal 3.6-10.7 [facility] Comment on above: Performed By: #### L [id number] ####Human Resource Management Instructor: BIANCA NICHOLS ([phone])[facility])[address] [place] [address] Consulton 04-25-2025 Consult [facility] Wound Care CONSULT Note Anmol Reynolds AGE: 64 y.o. GENDER: male : 1960 Subjective: HISTORY of PRESENT ILLNESS HPI Anmol Michelle Gail is a 64 y.o. male who presents for a wound consult. HPI: Anmol is a 64 y.o. male with past medical history below who presents with chief complaint listed above. Patient sent to [facility] ER [facility] to leave the patient's wounds on his sacrum were worsening and becoming infected. Patient is a paraplegic for the last 4 years after surgical complication with Dr. Ashley at [facility]. ER workup was significant for sodium [...] effort, no respiratory distress, no cyanosis Sacrum: [id number]. Wound bed with pink tissue noted. Small serosanguinous drainage. Periwound fragile. 04/25/25 Left ischium: [id number]. Wound bed with eschar, slough and red [...] to follow Recommend to follow up at [facility] wound care center after hospital [...] and a (more content not included)... Normal [facility] Laboratory - Chemistry and C hemistry - challengeon 04-25-2025 Glucose [Mass/Vol] 220 mg/dL High 70 - 100 mg/dL [facility] Glucose [Mass/Vol] 226 mg/dL High 70 - 100 mg/dL [facility] Glucose [Mass/Vol] 281 mg/dL High 70 - 100 mg/dL [facility] Glucose [Mass/Vol] 187 mg/dL High 70 - 100 mg/dL [facility] Laboratory - Microbiology an d Antimicrobial susceptibilityOrdered By: Joy York on 04-25-2025 Bacteria identified Aer cx Nom (Unsp spec) Moderate enteric gosia present [facility] Bacteria identified Aer cx Nom (Unsp spec) Moderate Staphylococcus aureus Abnormal [facility] Comment on above: Methicillin-resistan t Staphylococcus aureus (MRSA) No Panel Informationon 04-25 Interpretation and review of laboratory results Abnormal [facility] Performed by: [place] [address] CLIA ID: [id number] [facility] Interpretation and review of laboratory results Abnormal [facility] Performed by: [address] [address] CLIA ID: [id number] [facility] Interpretation and review of laboratory results Abnormal [facility] Performed by: [address] [address] CLIA ID: [id number] [facility] Interpretation and review of laboratory results Abnormal [facility] Performed by: [address] [address] CLIA ID: [id number] [facility] No Panel InformationOrdered By: Genaro Kelly on 04-25-2025 Case Report Surgical Pathology Case: [id number] Authorizing Provider: Kaela Durand MD Collected: 04/24/2025 0806 Ordering Location: [facility] MAIN OR Received: 04/24/2025 1911 Pathologist: Genaro Kelly MD PhD Specimen: LEFT ISCHIAL BONE [facility] Work Phone: Clinical Information s1qgiIXwMPLcyNIyDJZ wM XbgkwCnMNVsgSPeS6Pxrd wpPMwxEU7rNX3xkLjxnZA egBEyXCKnPnIsu4zih556 bIWwk4qhFGGOFSpjWJWBK Az3eZvpF52ke2P0RdorN5 xyZWQwXGdyZWVuMFxibHV mRUy2WOSllPLlwpUuDgNp QHGdpWZcbIV1JCJvMR2rc mpeUQmeMCsxANZsewP6QT PtfHBeU9GhBRCmRL9uaon lLEE8SAnsZCAiYRJ8DiXv HSZna2Uagzq5MfCrgPBct 9TcA8eopcPntAwkdkMuhe 9uZVxjbGJyZHJsXGJyZHJ ji84oHCKpEjOhkeUgUxKy ab1uklNcK9wmnkXeLrjuw bLpuj0vSWosaJPvafXqqJ LfR8wysWZCsYO0tFWdX6p 0R9trjYz8WBZnOEYetJg2 NTgyMFxwYXJkXGludGJsX DUsUNzjBZTuAhMsX6EhIG 36zJIvPVHnyNUeJP2rsAS xrQmqnMn1uQKmPL39uZEb IHNpdGUgKEhDQykgLSBNO WObAAicS3oXVV1mEQ9ZKM 0aG1CnkWpjlyAkbGauj9n ydOUsk0GyhMWhgEBgc4dh zZZyVRD4GVRaZRTyh06kM ZQbBdQgzwxjGqZhbc6mlr MrP4kbarSjggurmlJpyw6 uZVxjbGJyZHJiXGJyZHJu r29pFUXcudDczQGbnKamo SW7s7iiHSMaP2hkbBuDbQ Q2dEB3KdZsB2AnmTp3BHE yXUOyffDikW22HqxrWCVx r3Q1jmYfbX0qhJZ0MW0aS NUyY6O4H0TrhECrQEsrf5 6cLDL1XWmcMSOpHItFXgz bHSQCDHmiMHCbTNyVV4Qv QZKpY70oFCQaoJowdL51Z eohks42KFQtvxJszWJvaL == [employer] Work Phone: Comment f1eprIYxDWNqpMGzRMTk M BoqlrXkMCQdyNYeN3Cqix zxVNfyGB6aUG7ufClimHT psTOjRAVsTzOpv2aaj404 dZMwa1wtQYUSCKnjPWLJM Cp0aFekW68lr0M0VbjvG6 8qaKQdQJR4YLOoFSRjrFK sJVYyQUI9PCNsaHWnH7pe DQXrCY4yrjkfCLyvZDhzQ WDavCM0ZWQpuRJiX4BoAG DnTOmgUXEvegb6McIvKf1 vdGVyeTcyMFxwYXJkXHBs YWluXGZzMjAgRHIuIFMuI AMqh65rz65jQLNizlS6hm MuXHBhcn0= Link To [employer] Work Phone: Disclaimer w8maxPLdYVGdnPUmZnHg M DQmOUFat1ftUEHdrGMdFh EwMzNcZnRuYmpcdWMxXGR vGbKvo7ypa247cJIjh9jo ZEEiRfS7yCXzIMGpZ21aQ FQZK575KDUlEEdxm0flb7 GaHUGeqEHbn7X0RJVASIa nGXJCJFi3dOpzK18fm9F9 ZotkT2srRJPoTJGzJ5OnK U1aMAAnWrx3MZD6EXE5MY YvMUQkT8DmBH3mSTZyfFV hHFu8a1zzeUicYYSuRJO0 t9vrEMjjlzCkDC4psn8lt Iq2j6pkhuFkADAvEBKonH UXSIVlM5XkeFakLk5kkIl 2dYisEjzoMPR2Bct7FV1b aj89ygb5nJppGIQuymxdU bY1UKqcRFAqspiwLLc3UC euVKHoiNE1HUXatFDcE7F oTSWmVT9npkc4GLI7UOag DUIyPzI1JYNhrUEgFWDyr YldKLqbj906ZAQ9BbAkMP 0cG6Pss6L3mS6ibAZfBVO kwCVrDhCeLNHbgh6bwUOp LSvov1EtTXV8ayB2fKGgr ODgNPOeXU77Owpys7MeWu djCYW7AFDvzhFfv2Oxh4i oSxSywxVaW0sgJ8GtALSf YFOiCHHiFiBdazHlp4Tzv 2TfaTSgwMu0c8awVDLxKX PggKoml0pjRFV9GDHiV1A 5kKQjz6ufQLfiQSEulXI3 eyZ9WBApfAEhM2GgwT8xW NWcDX7hpyj1j0dvDHT8XI dvFCNqHbC4doV7ZBEvlJC uGMQegUrmPWnyf146THB2 RfKbPFWad7DuP9BxzZpuC 31lxHcjM42nOLKmoVzueT 7czUhphD8sPlNcYiTnKFr xbFxwbGFpblxmMVxmczE2 RMecbrfeKVPsJMxbA1wlY wYeKPDtpZquZXied3QeYW DvHYJdEMVkWThjV2tdmH5 xktbiOXhgQIFqzVydg5nz QoYwsPX2BU7mgnQpKDRpa NxrezH5ojOwsAjpvW5otQ 4beEdgjS2rzXRviHY4bas sIGluIHNpdHUgaHlicmlk fWpauNmukscqqR3lCLJ8h CQyGZM3uPKtAEPkMRDeOA KixW38pz8hrLAifbEqV6F aM4XngNGhvGemHivzcXYc xIDgIf6ebASmTX6zBNDgz YSiW4HmOB5yDAApybooHI IgVGhlIHVzZSBvZiBvbmU qi5HquD3hCUFnMZFyLY90 mdWetcF2qGOyHPKudxSls GVzdHMgaXMgcmVndWxhdG SpQYZaHMTuACApXBj0bYY nv2QsU2eadCFaybPnG5Xg vKLsSHOJZH9kTOufk4Ikl SVmnZRbn9QsYDXiDFCnmQ 3vJXBrKU6uCGSwJAkrHPA vbbFlrs5wmbXeAPXpSFLm P3XvsmcbiVxypuSeBOUex m9gocIdXDS0HFSkUEBhgZ hrsLMlnXLcSEYtogD1p9V oKFHsb0ZkP2JwtRBeZIOl cVBtEOX5d9DpaQ1dBEmvc HBdEEEqII7jaJEwOLCvQA NsZWFyZWQgYnkgdGhlIFV MAIUbf9PfCX2jHZKcaYxc GTBsbE6zb2LlJGEoc21yD EZEQSkuIFRoZSBGREEgaG FzIGRldGVybWluZWQgdGh jpSTiiAJsYCLtBJRkZT9p BVLocaXeoDLzq9KbgRFte jWhq9SlsvKkNQKiLID7Yn BccGFyXHBhciBBbGwgaW1 dkX0dv6BjqY3qFOcnzyOt sWIcMh4mhHIyDW3gFRVum mFmZmluIGVtYmVkZGVkIH Gmp2U5NW6hFPPlyy8joht yoTKhjY1fkYRzwpAbRV9z RX8gG1U3uRBzBGHwziGvl 8aiABv4qJOfSNQliAKkpA BwZhgkDYL4ROFlURB6cnS tyoOfLFTowEamtVP1hOPa EQOiLEToYODqFU85F8Irb 3UwO4wmTD12QBUtZCMvHJ FxuqMxk4jwANQjy3ecXVJ otDIqZ7FwMAWegAGywjmw OrEoAYW9GDSgUCR5aMXhA MHbE9CmaJNnwOLaxE85PZ 2wyLA3DN5gLSU3PYvlbS6 aRiOCbJ09vp7bqRZ2z7Ge YO3fF4IqMRGed5I0tlAgH DEeVP5ikMShRBMzVSZuwH lkYXRlZCBvbiBkZWNhbGN nTkrmUYO0gPEohUPjKvNF PVQ4eYBbRSStx8QaRCYwZ DZxyyWqugFkPDJrAJK4cW EaOZDvuLReo53mR5w2ZF5 knYvtJJDbzYMvYHGai6Ca dNZfdMo4qLTmRxZvZBasQ CHcEPdoiKk7zHT4VN4uBY UjA6XyB7ovhXBnYAGhGTW cbWZeft1taKUbeI== [facility] Work Phone: [employer] f9ysuTYiRSDmbCWeRSFt M KwvxkEdQUJzgRIsF1Cwnu hkYSaaPW6hTC5kxTqcfZK vwINaHCYjGjSdo6xbi320 qYEqd1njAUIRZAsuEMLXO Cw1rTfxY50rv8X2DrrtO6 5xzNYcLPL4IMFhSDJemFN fTRLuRXV3LSBfrUNzK1wt OVMhEZ6eqlznVWgcJUaiO ADflKK3HUEbeEVpA9WhYV UcEPyaRMCgorq0ByAwCo6 vdGVyeTcyMFxwYXJkXHBs FQlwCDIqIrPjWbErWVd2C DAenL3tFe0jkNCkwS3yrX OnFRqjLLBvgEAwrQBbd9Q oaWFsIGJvbmUiIGlzIGEg xGrnvr0nXJEjmM9aoPobi hZwVwSus69cFIRhYWSzrU Aao0OaAVInQP14TZqgUK8 2FMizNX4dVQHqMvRiWKwn IHNwZWNpbWVuIGlzIGVud OrwRYv1CWM1Sk2xdTHvFC IdsfIxnoIcP7Esg3L5rWV dGQWBr7LvUbQnWz9kROAw YWwgaXMgbmVlZGVkIGZvc lN9bPQtk7YfC2ocTX6bUN BccGFyfQ== [facility] Phone: Pathologist Interpretation Location [facility], [address] [place] [address], [facility] [address], CLIA: [id number]; Joint Commission: [id number] [id number]; CAP: [id number] [facility] Phone: Pathology report final diagnosis Narrative q6yljJPrACMutILbCLQeU WrptqDmLYSuvEFgS4Pdte ynCRihFQ4pMR3oiOjglGP utISxXYLhChOqr3uuh979 bIBaq3xlGDHUMGddOSYZS Lj8aDgtE45ua7P0EhmjQ1 9ovOWtDBS8RSKsJJLyrLF kWPSsFUJ7WTHzvCQnP5vz RAGsZZ1mqizvZSveXTajQ EFmpZM8WAMboSXuZ3XzLN BxFQfxKTBobwj1KvOiUa6 vdGVyeTcyMFxwYXJkXHBs YWluXGZzMjAgTEVGVCBJU 6JKTIUYTFLKIoBhJVMZA1 BTWTpccGFyXGVuZGFzaCA yPW4WGSCEKNTkT2CUKvNF XAIXH68dACfRC4GNAWVIF IVELTETPP4CCPTYAqRYK6 7sE8XiHz5EGRMKESTFVEU PUatWM8BFDLJTB4RHRKMV E1HRB93WLUsXUIkKOzoaC XJ9 [facility] Work Phone: [facility] [employer] Work Phone: 30on 04-24-2025 30 Problem: Pain [...] and maintained or improved Outcome: Progressing Normal [facility] [id number] 04-24-2025 [phone] consult-[facility] transportation. SW reviewed chart. Pt is a [facility] resident of [facility]. [place] is responsible for pt transportation for medical appointments. . Normal [facility] BASIC METABOLIC PANELon 07- Anion gap [Moles/Vol] 8 mmol/L Normal 3-13 [facility] Comment on above: Performed By: #### L AB15 ####Human Resource Management Instructor: BIANCA NICHOLS ([id number])[address] Calcium [Mass/Vol] 8.4 mg/dL Low 8.8-10.0 [facility] Comment on above: Performed By: #### L AB15 ####Human Resource Management Instructor: BIANCA NICHOLS ([id number])[facility] ([facility])[address] [place] [address] [place] Chloride [Moles/Vol] 101 mmol/L Normal 98-107 [facility] Comment on above: Performed By: #### L AB15 ####Human Resource Management Instructor: BIANCA NICHOLS ([id number])[facility])[address] [place] [address] [place] CO2 [Moles/Vol] 27 mmol/L Normal 23-31 [facility] Comment on above: Performed By: #### L AB15 ####Human Resource Management Instructor: BIANCA NICHOLS ([id number])[facility])[address] [place] [address] Creatinine [Mass/Vol] 0.59 mg/dL Low 0.72-1.25 [facility] Comment on above: Performed By: #### L [id number] ####Human Resource Management Instructor: BIANCA NICHOLS ([phone])[facility])[address] [place] [address] GLOMERULAR FILTRATION RATE ML/MIN/1.73 SQ M.PREDICTED >90.0 Normal >60.0 [facility] Comment on above: Result Comment: Calc ulation based on the Chronic Kidney Disease Epidemiology Collaboration (CKD-EPI) equation refit without adjustment for race Performed By: #### L [id number] ####Human Resource Management Instructor: BIANCA NICHOLS ([id number])[facility])[address] [place] [address] Glucose [Mass/Vol] 113 mg/dL Normal 82-115 [facility] Comment on above: Performed By: #### L AB15 ####Human Resource Management Instructor: BIANCA NICHOLS ([phone])[facility])[address] [place] [address] Potassium [Moles/Vol] 4.0 mmol/L Normal 3.5-5.1 [facility] Comment on above: Result Comment: [facility] potassium values may be up to 0.5 mmol/L lower than serum values. Performed By: #### L AB15 ####Human Resource Management Instructor: BIANCA NICHOLS ([phone])[facility])[address] [place] [address] Sodium [Moles/Vol] 136 mmol/L Normal 136-145 [facility] Comment on above: Performed By: #### L AB15 ####Human Resource Management Instructor: BIANCA NICHOLS ([id number])[facility])[address] [place] [address] Urea nitrogen [Mass/Vol] 7 mg/dL Low 9-23 [facility] Comment on above: Performed By: #### L [id number] ####Human Resource Management Instructor: BIANCA NICHOLS ([id number])[facility] ([facility] Basic metabolic 1998 panelon 04-24-2025 Anion gap [Moles/Vol] 8 mmol/L 3 - 13 mmol/L [facility] Calcium [Mass/Vol] 8.4 mg/dL Low 8.8 - 10. 0 mg/dL [facility] Chloride [Moles/Vol] 101 mmol/L 98 - 10 7 mmol/L [facility] CO2 [Moles/Vol] 27 mmol/L 23 - 31 mmol/L [facility] Creatinine [Mass/Vol] 0.59 mg/dL Low 0.72 - 1.25 mg/dL [facility] GFR/1.73 sq M.predicted (S/P/Bld) [Vol rate/Area] - PINF [facility] Comment on above: Calculation based on the Chronic Kidney Disease Epidemiology Collaboration (CKD-EPI) equation refit without adjustment for race Glucose [Mass/Vol] 113 mg/dL 82 - 115 mg/dL [facility] Interpretation and review of laboratory results Abnormal [facility] Potassium [Moles/Vol] 4 mmol/L 3.5 - 5.1 mmol/L [facility] Comment on above: Plasma potassium leonie ues may be up to 0.5 mmol/L lower than serum values. Sodium [Moles/Vol] 136 mmol/L 136 - 145 mmol/L [facility] Urea nitrogen [Mass/Vol] 7 mg/dL Low 9 - 23 mg/dL [facility] CBC W Auto Differential pane l (Bld)on 04-24-2025 Basophils (Bld) [#/Vol] 0.1 10*3/uL 0.0 - 0.2 10*3/uL [facility] Basophils/100 WBC (Bld) 0.6 % 0.0 - 2.0 % [facility] Eosinophils (Bld) [#/Vol] 0.4 10*3/uL 0.0 - 0.5 10*3/uL [facility] Eosinophils/100 WBC (Bld) 4 % 0.0 - 6.0 % [facility] Erythrocyte distribution width (RBC) [Ratio] 14.9 % 11.5 - 15.0 % [facility] Hematocrit (Bld) [Volume fraction] 32.8 % Low 40.0 - 52.0 % [facility] Hemoglobin (Bld) [Mass/Vol] 10.6 g/dL Low 13.0 - 18.0 g/dL [facility] Immature granulocytes (Bld) [#/Vol] 0 10*3/uL NINF - 0.1 10*3/uL [facility] Immature granulocytes/100 WBC (Bld) 0.4 % 0.0 - 2.0 % [facility] Interpretation and review of laboratory results Abnormal [facility] Lymphocytes (Bld) [#/Vol] 2.2 10*3/uL 1.0 - 4.3 10*3/uL [facility] Lymphocytes/100 WBC (Bld) 23.9 % 15.0 - 45.0 % [facility] MCH (RBC) [Entitic mass] 28.8 pg 26. 0 - 34.0 pg [facility] MCHC (RBC) [Mass/Vol] 32.3 % 30.5 - 36.0 % [facility] MCV (RBC) [Entitic vol] 89.1 fL 77.0 - 99.0 fL [facility] Monocytes (Bld) [#/Vol] 0.7 10*3/uL 0.0 - 0.9 10*3/uL [facility] Monocytes/100 WBC (Bld) 8 % 5.0 - 13.0 % [facility] Neutrophils (Bld) [#/Vol] 5.9 10*3/uL 1.8 - 7.5 10*3/uL [facility] Neutrophils/100 WBC (Bld) 63.1 % 38.0 - 82.0 % [facility] Nucleated RBC/100 WBC (Bld) [Ratio] 0 % [facility] Platelet mean volume (Bld) [Entitic vol] 9.8 fL 9.0 - 12.7 fL [facility] Platelets (Bld) [#/Vol] 367 10*3/uL 140 - 440 10*3/uL [facility] RBC (Bld) [#/Vol] 3.68 10*6/uL Low 4.40 - 5.9 0 10*6/uL [facility] WBC (Bld) [#/Vol] 9.3 10*3/uL 3.6 - 10.7 10*3/uL [facility] CBC WITH AUTO DIFFERENTIALon 04-24-2025 Basophils (Bld) [#/Vol] 0.1 10*3/uL Normal 0.0-0.2 [facility] Comment on above: Performed By: #### L [id number] ####Human Resource Management Instructor: BIANCA NICOHLS ([id number])[facility])[address] [place] [address] [place] Basophils/100 WBC (Bld) 0.6 % Normal 0.0-2.0 S [facility] Comment on above: Performed By: #### L [id number] ####Human Resource Management Instructor: BIANCA NICHOLS ([id number])[facility])[address] [place] [address] Eosinophils (Bld) [#/Vol] 0.4 10*3/uL Normal 0.0-0.5 [facility] Comment on above: Performed By: #### L [id number] ####Human Resource Management Instructor: BIANCA NICHOLS ([phone])[facility] ([facility])[address] [place] [address] Eosinophils/100 WBC (Bld) 4.0 % Normal 0.0-6.0 [facility] Comment on above: Performed By: #### L [id number] ####Human Resource Management Instructor: BIANCA NICHOLS ([id number])[facility])[address] [place] [address] Erythrocyte distribution width (RBC) [Ratio] 14.9 % Normal 11.5-15.0 [facility] Comment on above: Performed By: #### L [id number] ####Human Resource Management Instructor: BIANCA NICHOLS ([id number])[facility])[address] [place] [address] Hematocrit (Bld) [Volume fraction] 32.8 % Low 40.0-52.0 [facility] Comment on above: Performed By: #### L [id number] ####Human Resource Management Instructor: BIANCA [id number])[facility])[address] [place] [address] Hemoglobin (Bld) [Mass/Vol] 10.6 g/dL Low 13.0-18.0 [facility] Comment on above: Performed By: #### L [id number] ####Human Resource Management Instructor: BIANCA NICHOLS ([phone])[facility])[address] [place] [address] IMMATURE GRANS % 0.4 % Normal 0.0-2.0 [facility] Comment on above: Performed By: #### L [id number] ####Human Resource Management Instructor: BIANCA NICHOLS ([phone])[facility])[address] [place] [address] IMMATURE GRANS ABSOLUTE 0.0 10*3/uL Normal <0.1 [facility] Comment on above: Performed By: #### L [id number] ####Human Resource Management Instructor: BIANCA NICHOLS ([id number])[facility])[address] [place] [address] Lymphocytes (Bld) [#/Vol] 2.2 10*3/uL Normal 1.0-4.3 [facility] Comment on above: Performed By: #### L [id number] ####Human Resource Management Instructor: BIANCA NICHOLS ([id number])[facility])[address] [place] [address] Lymphocytes/100 WBC (Bld) 23.9 % Normal 15.0-45.0 [facility] Comment on above: Performed By: #### L [id number] ####Human Resource Management Instructor: BIANCA NICHOLS ([id number])[facility])[address] [place] [address] MCH (RBC) [Entitic mass] 28.8 pg Normal 26.0-34.0 [facility] Comment on above: Performed By: #### L [id number] ####Human Resource Management Instructor: BIANCA NICHOLS ([id number])[facility])[address] [place] [address] MCHC 32.3 % Normal 30.5-36.0 [facility] Comment on above: Performed By: #### L [id number] ####Human Resource Management Instructor: BIANCA NICHOLS ([id number])[facility])[address] [place] [address] MCV (RBC) [Entitic vol] 89.1 fL Normal 77.0-99.0 S [facility] Comment on above: Performed By: #### L [id number] ####Human Resource Management Instructor: BIANCA NICHOLS ([id number])[facility] ([facility])[address] [place] [address] Monocytes (Bld) [#/Vol] 0.7 10*3/uL Normal 0.0-0.9 [facility] Comment on above: Performed By: #### L [id number] ####Human Resource Management Instructor: BIANCA NICHOLS ([id number])[facility])[address] [place] [address] Monocytes/100 WBC (Bld) 8.0 % Normal 5.0-13.0 S [facility] Comment on above: Performed By: #### L [id number] ####Human Resource Management Instructor: BIANCA NICHOLS ([phone])[facility])[address] [place] [address] NEUTROPHILS ABSOLUTE 5.9 10*3/uL Normal 1.8-7.5 [facility] Comment on above: Performed By: #### L [id number] ####Human Resource Management Instructor: BIANCA NICHOLS ([phone])[facility])[address] [place] [address] Neutrophils/100 WBC (Bld) 63.1 % Normal 38.0-82.0 [facility] Comment on above: Performed By: #### L [id number] ####Human Resource Management Instructor: BIANCA NICHOLS ([phone])[facility])[address] [place] [address] NRBC 0.0 /100 WBCs Normal 0.0-2.0 [facility] Comment on above: Performed By: #### L [id number] ####Human Resource Management Instructor: BIANCA NICHOLS ([phone])[facility] ([facility])[address] [place] [address] Platelet mean volume (Bld) [Entitic vol] 9.8 fL Normal 9.0-12.7 [facility] Comment on above: Performed By: #### L [id number] ####Human Resource Management Instructor: BIANCA NICHOLS ([id number])[facility] ([facility])[address] [place] [address] Platelets (Bld) [#/Vol] 367 10*3/uL Normal 140-440 [facility] Comment on above: Performed By: #### L [id number] ####Human Resource Management Instructor: BIANCA NICHOLS ([id number])[facility] ([facility])[address] [place] [address] RBC (Bld) [#/Vol] 3.68 10*6/uL Low 4.40-5.90 [facility] Comment on above: Performed By: #### L [id number] ####Human Resource Management Instructor: BIANCA NICHOLS ([id number])[facility] ([facility])[address] [place] [address] WBC (Bld) [#/Vol] 9.3 10*3/uL Normal 3.6-10.7 [facility] Comment on above: Performed By: #### L [id number] ####Human Resource Management Instructor: BIANCA NICHOLS ([id number])[facility])[address] [place] [address] CULTURE ANAEROBICon 04-24-20 CULTURE ANAEROBIC ANAEROBIC CULTURE Reference No growth at 5 days [ S = SUSCEPTIBLE R = RESISTANT I = INTERMEDIATE S-DD = Susceptible-dose dependent NS = Non-susceptible NO = No Interpretation ] Normal [facility] Comment on above: Performed By: #### L [id number] #### Human Resource Management Instructor: BIANCA NICHOLS ([id number]) [facility]) [address] [place] [address] CULTURE ANAEROBIC ANAEROBIC CULTURE Reference Mixed aerobic and anaerobic bacteria present. CLOSTRIDIUM RAMOSUM Few Clostridium ramosum (A) [ S = SUSCEPTIBLE R = RESISTANT I = INTERMEDIATE S-DD = Susceptible-dose dependent NS = Non-susceptible NO = No Interpretation ] Normal [facility] Comment on above: Performed By: #### L AB39 #### Human Resource Management Instructor: BIANCA NICHOLS ([phone]) [facility]) [address] [place] [address] CULTURE, AEROBIC BACTERIA WI GRAM STAINon 04-24-2025 [...] Non-susceptible NO = No Interpretation ] Normal [facility] Comment on above: Performed By: #### L AB39 #### Human Resource Management Instructor: BIANCA NICHOLS ([id number]) [facility]) [address] [place] [address] CULTURE, AEROBIC BACTERIA WITH GRAM STAIN CULTURE [...] Non-susceptible NO = No Interpretation ] Normal [facility] Comment on above: Performed By: #### L AB39 #### Human Resource Management Instructor: BIANCA NICHOLS ([id number]) [facility] ([facility]) [address] [place] [address] Laboratory - Chemistry and C hemistry - challengeon 04-24-2025 Glucose [Mass/Vol] 348 mg/dL High 70 - 100 mg/dL [facility] Glucose [Mass/Vol] 407 mg/dL High 70 - 100 mg/dL [facility] Glucose [Mass/Vol] 259 mg/dL High 70 - 100 mg/dL [facility] Glucose [Mass/Vol] 135 mg/dL High 70 - 100 mg/dL [facility] Glucose [Mass/Vol] 126 mg/dL High 70 - 100 mg/dL [facility] Laboratory - Drug toxicology on 04-24-2025 Vancomycin trough [Mass/Vol] 12 ug/mL [facility] [employer] No Panel Informationon 04-24 Interpretation and review of laboratory results Abnormal [facility] Performed by: [address] [address] CLIA ID: [id number] [facility] Interpretation and review of laboratory results Abnormal [facility] Performed by: [address] [address] CLIA ID: [id number] [facility] Interpretation and review of laboratory results Abnormal [facility] Performed by: [address] [address] CLIA ID: [id number] [facility] Interpretation and review of laboratory results Abnormal [facility] Performed by: [address] [address] CLIA ID: [id number] [facility] Interpretation and review of laboratory results Abnormal [facility] Performed by: [address] [address] CLIA ID: [id number] [facility] Nursing Noteon 04-24-2025 Nursing Note Patient states nobod y here to update Normal [facility] Op Noteon 04-24-2025 Op Note - Attestation signed by Kaela Durand MD at 04/26/2025 4:55 PM I attest that I was present and supervised the entire procedure. I agree with the operative details as documented in the resident's note. Excisional debridement of necrotic ischial wound, total wound measurement 7 x 4 cm = 28 cm2 [CPT 18069, 84916] Open biopsy of left ischium [CPT 57283] This note is electronically signed by: Kaela [...] achieved with bovie electrocautery. Two pieces of Willard patch were placed in the wound bed. Betadine soak Kerlix was then packed in the wound. Dressings were applied overtop. The sponge, instrument and needle counts were correct at the end of the case. The patient was extubated and transferred to PACU in stable condition. [facility] Progress Noteon 04-24-2025 Progress Note Nutrition Assessment [...] (BLE Edema: Moderate pitting, indentation subsides rapidly) Chief Lifestyle Officer Strength: Not Performed Chief Complaint Patient presents with Wound Infection Per EMS pt was sent here from the [facility] for wound infections. 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 Nurse states she ordered [...] (kg): 82.41 kg Total Energy Requirements (kcals/day): 9958-7284 (25-30 kcals/kg) Weight Used for Protein Requirements: [...] MAP (mmHg): (more content not included)... Normal [facility] Progress Note Patient out of room at time of visit Wound care to follow up at a later time Soledad Paul APRN - SHARIFA [facility] Progress Note - Attestation signed by [...] MD Division of Trauma Department of Surgery [facility] [1] Patient Active Problem List [...] s/p surgical complication with Dr. Ashley at [facility], HLD, HTN, MDD, OA, a-fib on [...] 24 hours) (more content not included)... Normal [facility] [employer] [facility] VANCOMYCIN, AUC TIMED DOSING on 04-24-2025 VANCOMYCIN, AUC 12.0 ug/mL Normal [facility] Comment on above: Result Comment: [facility] COMMENTS: Please draw random level at least >2 hours after the end of the last vancomycin infusion, or 30-minutes before next infusion. Toxicity is seen at concentrations >80-100 ug/mL Therapeutic (Peak) range: 20-40 Therapeutic (Trough) range: 5-10 Performed By: #### L [id number] ####Human Resource Management Instructor: BIANCA NICHOLS ([id number])[facility] ([address] Vancomycin trough [Mass/Vol] on 04-24-2025 Toxicity is seen at concentrations >80-100 ug/mL Therapeutic (Peak) range: 20-40 Therapeutic (Trough) range: 5-10 [facility] 30on 04-23-2025 30 Problem: Pain - Adul t Goal: Verbalizes/displays adequate comfort level or baseline comfort level Outcome: Progressing Problem: Safety - Adult Goal: Free from fall injury Outcome: Progressing Problem: Chronic Conditions and Co-morbidities Goal: Patient's chronic conditions and co-morbidity symptoms are monitored and maintained or improved Outcome: Progressing Normal [facility] 30 Problem: Pain - Adul t Goal: [...] and maintained or improved Outcome: Progressing Normal [facility] BASIC METABOLIC PANELon 07-2 0-2024 Anion gap [Moles/Vol] 7 mmol/L Normal 3-13 [facility] Comment on above: Performed By: #### L AB15 ####Human Resource Management Instructor: BIANCA NICHOLS ([id number])[facility] ([facility])[address] [place] [address] Calcium [Mass/Vol] 8.1 mg/dL Low 8.8-10.0 [facility] Comment on above: Performed By: #### L AB15 ####Human Resource Management Instructor: BIANCA NICHOLS ([id number])[facility] [place] [address] Chloride [Moles/Vol] 105 mmol/L Normal 98-107 [facility] Comment on above: Performed By: #### L AB15 ####Human Resource Management Instructor: BIANCA NICHOLS ([id number])[facility])[address] [place] [address] CO2 [Moles/Vol] 21 mmol/L Low 23-31 [facility] Comment on above: Performed By: #### L AB15 ####Human Resource Management Instructor: BIANCA NICHOLS ([phone])[facility])[address] [place] [address] Creatinine [Mass/Vol] 0.54 mg/dL Low 0.72-1.25 [facility] Comment on above: Performed By: #### L AB15 ####Human Resource Management Instructor: BIANCA NICHOLS ([phone])[facility])[address] [place] [address] GLOMERULAR FILTRATION RATE ML/MIN/1.73 SQ M.PREDICTED >90.0 Normal >60.0 [facility] Comment on above: Result Comment: Calc ulation based on the Chronic Kidney Disease Epidemiology Collaboration (CKD-EPI) equation refit without adjustment for race Performed By: #### L AB15 ####Human Resource Management Instructor: BIANCA NICHOLS ([phone])[facility])[address] [place] [address] Glucose [Mass/Vol] 133 mg/dL High 82-115 [facility] Comment on above: Performed By: #### L AB15 ####Human Resource Management Instructor: BIANCA NICHOLS ([id number])[facility] ([facility])[address] [place] [address] Potassium [Moles/Vol] 3.8 mmol/L Normal 3.5-5.1 [facility] Comment on above: Result Comment: [facility] potassium values may be up to 0.5 mmol/L lower than serum values. Performed By: #### L AB15 ####Human Resource Management Instructor: BIANCA NICHOSL ([phone])[facility] ([facility])[address] [place] [address] Sodium [Moles/Vol] 133 mmol/L Low 136-145 [facility] Comment on above: Performed By: #### L AB15 ####Human Resource Management Instructor: BIANCA NICHOLS ([phone])[facility] ([facility])[address] [place] [address] Urea nitrogen [Mass/Vol] 8 mg/dL Low 9-23 [facility] Comment on above: Performed By: #### L AB15 ####Human Resource Management Instructor: BIANCA NICHOLS ([phone])[facility] ([facility])[address] [place] [address] Basic metabolic 1998 panelon 04-23-2025 Anion gap [Moles/Vol] 7 mmol/L 3 - 13 mmol/L [facility] Calcium [Mass/Vol] 8.1 mg/dL Low 8.8 - 10. 0 mg/dL [facility] Chloride [Moles/Vol] 105 mmol/L 98 - 10 7 mmol/L [facility] CO2 [Moles/Vol] 21 mmol/L Low 23 - 31 mmol/L [facility] Creatinine [Mass/Vol] 0.54 mg/dL Low 0.72 - 1.25 mg/dL [facility] GFR/1.73 sq M.predicted (S/P/Bld) [Vol rate/Area] - PINF [facility] Comment on above: Calculation based on the Chronic Kidney Disease Epidemiology Collaboration (CKD-EPI) equation refit without adjustment for race Glucose [Mass/Vol] 133 mg/dL High 82 - 115 mg/dL [facility] Interpretation and review of laboratory results Abnormal [facility] Potassium [Moles/Vol] 3.8 mmol/L 3.5 - 5.1 mmol/L [facility] Comment on above: Plasma potassium leonie ues may be up to 0.5 mmol/L lower than serum values. Sodium [Moles/Vol] 133 mmol/L Low 136 - 145 mmol/L [facility] Urea nitrogen [Mass/Vol] 8 mg/dL Low 9 - 23 mg/dL [facility] CBC W Auto Differential pane l (Bld)on 04-23-2025 Basophils (Bld) [#/Vol] 0.1 10*3/uL 0.0 - 0.2 10*3/uL [facility] Basophils/100 WBC (Bld) 0.5 % 0.0 - 2.0 % [facility] Eosinophils (Bld) [#/Vol] 0.3 10*3/uL 0.0 - 0.5 10*3/uL [facility] Eosinophils/100 WBC (Bld) 3.6 % 0.0 - 6.0 % [facility] Erythrocyte distribution width (RBC) [Ratio] 14.9 % 11.5 - 15.0 % [facility] Hematocrit (Bld) [Volume fraction] 30.7 % Low 40.0 - 52.0 % [facility] Hemoglobin (Bld) [Mass/Vol] 9.9 g/dL Low 13.0 - 18.0 g/dL [facility] Immature granulocytes (Bld) [#/Vol] 0 10*3/uL NINF - 0.1 10*3/uL [facility] Immature granulocytes/100 WBC (Bld) 0.4 % 0.0 - 2.0 % [facility] Interpretation and review of laboratory results Abnormal [facility] Lymphocytes (Bld) [#/Vol] 2.2 10*3/uL 1.0 - 4.3 10*3/uL [facility] Lymphocytes/100 WBC (Bld) 23.6 % 15.0 - 45.0 % [facility] MCH (RBC) [Entitic mass] 28.5 pg 26. 0 - 34.0 pg [facility] MCHC (RBC) [Mass/Vol] 32.2 % 30.5 - 36.0 % [facility] MCV (RBC) [Entitic vol] 88.5 fL 77.0 - 99.0 fL [facility] Monocytes (Bld) [#/Vol] 0.8 10*3/uL 0.0 - 0.9 10*3/uL [facility] Monocytes/100 WBC (Bld) 8.7 % 5.0 - 13.0 % [facility] Neutrophils (Bld) [#/Vol] 5.9 10*3/uL 1.8 - 7.5 10*3/uL [facility] Neutrophils/100 WBC (Bld) 63.2 % 38.0 - 82.0 % [facility] Nucleated RBC/100 WBC (Bld) [Ratio] 0 % [facility] Platelet mean volume (Bld) [Entitic vol] 9.7 fL 9.0 - 12.7 fL [facility] Platelets (Bld) [#/Vol] 352 10*3/uL 140 - 440 10*3/uL [facility] RBC (Bld) [#/Vol] 3.47 10*6/uL Low 4.40 - 5.9 0 10*6/uL [facility] WBC (Bld) [#/Vol] 9.4 10*3/uL 3.6 - 10.7 10*3/uL [facility] CBC WITH AUTO DIFFERENTIALon 04-23-2025 Basophils (Bld) [#/Vol] 0.1 10*3/uL Normal 0.0-0.2 [facility] Comment on above: Performed By: #### L [id number] ####Human Resource Management Instructor: BIANCA NICHOLS ([id number])[address] Basophils/100 WBC (Bld) 0.5 % Normal 0.0-2.0 S [facility] Comment on above: Performed By: #### L [id number] ####Human Resource Management Instructor: BIANCA NICHOLS ([id number])[facility])[address] [place] [address] Eosinophils (Bld) [#/Vol] 0.3 10*3/uL Normal 0.0-0.5 [facility] Comment on above: Performed By: #### L [id number] ####Human Resource Management Instructor: BIANCA NICHOLS ([id number])[facility])[address] [place] [address] Eosinophils/100 WBC (Bld) 3.6 % Normal 0.0-6.0 [facility] Comment on above: Performed By: #### L [id number] ####Human Resource Management Instructor: BIANCA NICHOLS ([id number])[facility])[address] [place] [address] Erythrocyte distribution width (RBC) [Ratio] 14.9 % Normal 11.5-15.0 [facility] Comment on above: Performed By: #### L [id number] ####Human Resource Management Instructor: BIANCA NICHOLS ([id number])[address] Hematocrit (Bld) [Volume fraction] 30.7 % Low 40.0-52.0 [facility] Comment on above: Performed By: #### L [id number] ####Human Resource Management Instructor: BIANCA NICHOLS ([id number])[facility])[address] [place] [address] Hemoglobin (Bld) [Mass/Vol] 9.9 g/dL Low 13.0-18.0 [facility] Comment on above: Performed By: #### L [id number] ####Human Resource Management Instructor: BIANCA NICHOLS ([id number])[facility])[address] [place] [address] IMMATURE GRANS % 0.4 % Normal 0.0-2.0 [facility] Comment on above: Performed By: #### L [id number] ####Human Resource Management Instructor: BIANCA NICHOLS ([phone])[facility])[address] [place] [address] IMMATURE GRANS ABSOLUTE 0.0 10*3/uL Normal <0.1 [facility] Comment on above: Performed By: #### L [id number] ####Human Resource Management Instructor: BIANCA NICHOLS ([id number])[facility])[address] [place] [address] Lymphocytes (Bld) [#/Vol] 2.2 10*3/uL Normal 1.0-4.3 [facility] Comment on above: Performed By: #### L [id number] ####Human Resource Management Instructor: BIANCA NICHOLS ([id number])[facility])[address] [place] [address] Lymphocytes/100 WBC (Bld) 23.6 % Normal 15.0-45.0 [facility] Comment on above: Performed By: #### L [id number] ####Human Resource Management Instructor: BIANCA NICHOLS ([id number])[facility])[address] [place] [address] MCH (RBC) [Entitic mass] 28.5 pg Normal 26.0-34.0 [facility] Comment on above: Performed By: #### L [id number] ####Human Resource Management Instructor: BIANCA NICHOLS ([id number])[facility])[address] [place] [address] MCHC 32.2 % Normal 30.5-36.0 [facility] Comment on above: Performed By: #### L [id number] ####Human Resource Management Instructor: BIANCA NICHOLS ([phone])[facility])[address] [place] [address] MCV (RBC) [Entitic vol] 88.5 fL Normal 77.0-99.0 S [facility] Comment on above: Performed By: #### L [id number] ####Human Resource Management Instructor: BIANCA NICHOLS ([phone])[facility])[address] [place] [address] Monocytes (Bld) [#/Vol] 0.8 10*3/uL Normal 0.0-0.9 [facility] Comment on above: Performed By: #### L [id number] ####Human Resource Management Instructor: BIANCA NICHOLS ([id number])[facility])[address] [place] [address] Monocytes/100 WBC (Bld) 8.7 % Normal 5.0-13.0 S [facility] Comment on above: Performed By: #### L [id number] ####Human Resource Management Instructor: BIANCA NICHOLS ([id number])[facility] ([facility])[address] [place] [address] NEUTROPHILS ABSOLUTE 5.9 10*3/uL Normal 1.8-7.5 [facility] Comment on above: Performed By: #### L [id number] ####Human Resource Management Instructor: BIANCA NICHOLS ([id number])[facility] ([facility])[address] [place] [address] Neutrophils/100 WBC (Bld) 63.2 % Normal 38.0-82.0 [facility] Comment on above: Performed By: #### L [id number] ####Human Resource Management Instructor: BIANCA NICHOLS ([id number])[facility] ([facility])[address] [place] [address] NRBC 0.0 /100 WBCs Normal 0.0-2.0 [facility] Comment on above: Performed By: #### L [id number] ####Human Resource Management Instructor: BIANCA NICHOLS ([id number])[facility] ([facility])[address] [place] [address] Platelet mean volume (Bld) [Entitic vol] 9.7 fL Normal 9.0-12.7 [facility] Comment on above: Performed By: #### L [id number] ####Human Resource Management Instructor: BIANCA NICHOLS ([id number])[facility] ([facility])[address] [place] [address] Platelets (Bld) [#/Vol] 352 10*3/uL Normal 140-440 [facility] Comment on above: Performed By: #### L [id number] ####Human Resource Management Instructor: BIANCA NICHOLS ([id number])[facility] ([facility])[address] [place] [address] RBC (Bld) [#/Vol] 3.47 10*6/uL Low 4.40-5.90 [facility] Comment on above: Performed By: #### L [id number] ####Human Resource Management Instructor: BIANCA NICHOLS ([id number])[facility] ([facility])[address] [place] [address] WBC (Bld) [#/Vol] 9.4 10*3/uL Normal 3.6-10.7 [facility] Comment on above: Performed By: #### L [id number] ####Human Resource Management Instructor: BIANCA NICHOLS ([phone])[facility] ([facility])[address] [place] [address] Laboratory - Chemistry and C hemistry - challengeon 04-23-2025 Glucose [Mass/Vol] 189 mg/dL High 70 - 100 mg/dL [facility] Glucose [Mass/Vol] 119 mg/dL High 70 - 100 mg/dL [facility] [employer] Glucose [Mass/Vol] 231 mg/dL High 70 - 100 mg/dL [facility] [employer] Glucose [Mass/Vol] 217 mg/dL High 70 - 100 mg/dL [facility] No Panel Informationon 04-23 Interpretation and review of laboratory results Abnormal [facility] [employer] Performed by: [place] [address] CLIA ID: [id number] [facility] Interpretation and review of laboratory results Abnormal [facility] Performed by: [place] [address] CLIA ID: [id number] [facility] Interpretation and review of laboratory results Abnormal [facility] Performed by: [place] [address] CLIA ID: [id number] [facility] Interpretation and review of laboratory results Abnormal [facility] Performed by: [place] [address] CLIA ID: [id number] [facility] [employer] 30on 04-22-2025 30 Problem: Pain - Adul [...] and maintained or improved Outcome: Progressing Normal [facility] 30 Problem: Pain - Adul t Goal: Verbalizes/displays adequate comfort level or baseline comfort level Outcome: Progressing Problem: Safety - Adult Goal: Free from fall injury Outcome: Progressing Problem: Discharge Planning Goal: Discharge to home or other facility with appropriate resources Outcome: Progressing Problem: Chronic Conditions and Co-morbidities Goal: Patient's chronic conditions and co-morbidity symptoms are monitored and maintained or improved Outcome: Progressing [facility] 36on 04-22-2025 36 Name of Caller: Milady Contact Physician requesting Consult: Alberto Boogie AALIYAH / attending provider when ordered Dr. Georgette Bueno [phone] Patient Location (facility name, room, bed number): [facility] Room 465B Patient Diagnosis/Reason for Consult: Wound infection, on Cefepime Provider being paged: Dr. Castillo Time page was sent: 8:29 AM Department of provider being paged: Infectious Disease Page Content: Received a call from [address] and spoke to Milady [phone] she was asked to send out a consult from Alberto Boogie AALIYAH / attending provider when ordered Dr. Georgette Bueno [phone], is requesting a consult. Information that was provided is: wound infection, on cefepime. PT in [facility] Room 465 B Message sent via Secure Chat [facility] CT PELVIS W IV CONTRASTon CT PELVIS W IV CONTRAST Patient Name: [facility]MOL DRISCOLL [facility] 1960 [id number] Exam Date/Time: 04/22/2025 00:01 Procedure: CT PELVIS [...] Electronically Signed Date/Time: 04/22/2025 12:31 AM EDT [facility] CT Pelvis W contrast Poli 1. Findings [...] Electronically Signed Date/Time: 04/22/2025 12:31 AM T [facility] Patient Name: ANMOL REYNOLDS : 1960 [id number] Exam Date/Time: 04/22/2025 00:01 Procedure: CT PELVIS [...] gluteus muscles, and hip muscles (paralysis patient). [facility] Geneva Lunsford MD - 04/22/2025 Patient Name: ANMOL REYNOLDS : 1960 [id number] Exam Date/Time: 04/22/2025 00:01 Procedure: CT PELVIS [...] Electronically Signed Date/Time: 04/22/2025 12:31 AM EDT [facility] Radiology Study observation (narrative) [facility] alth CT Pelvis W contrast IVOrder ed By: Geneva Lunsford on 04-22-2025 [facility] Work Phone: Consulton 04-22-2025 Consult [facility] - Infectious Diseases Attending Consult Note Reason for Consult: 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 History of Present Illness: 64 M with h/o MRSA lumbar epidural abscess from 2021, s/p decompression and fusion, but left paraplegic with neurogenic bladder. Recent hospitlaizaitons for PNA as well as [facility] Proteus UTI/ sepsis recently at [facility]. He had a sacral decubitus ulcer for years, was already improving but worsened since most recent prolonged hospitalization once more in February 2025. Buttock ulcer developed that time as well. Patient stabilized, completed IV antibiotics, and was doing well except at [facility] increased concern for worsening wound infection, Patient [...] Resource Strain: Low Risk (04/24/2023) Received from [facility] Overall Financial Resource Strain (CARDIA) Difficulty [...] atrophy to (more content not included)... Normal [facility] Consult - Attestation signed by Meliton Carrero [...] exam and evaluation Meliton Carrero MD, [facility] Trauma, Surgical Critical Care & Acute Care Surgery Division of Trauma Department of Surgery [facility] [1] Patient Active Problem List [...] Department of General Surgery Surgical Service - [facility] Resident Consult Note 04/22/2025 CHIEF COMPLAINT: Chief Complaint Patient presents with Wound Infection Per EMS pt was sent here from the [place] for wound infections. Pt has two wound [...] s/p surgical complication with Dr. Ashley at [facility], HLD, HTN, MDD, OA, a-fib on [...] Labs reviewed signific (more content not included)... [facility] Consult Pharmacy Managed Vancomycin Dosing Service Consult [...] creatinine, and vancomycin levels interfaced automatically to [employer] and data has been analyzed and interpreted. [...] DATE: 04/22/25 TIME: 2:39 AM Nina Workman [facility] Clinical Pharmacist Available via Secure Chat Normal [facility] Laboratory - Chemistry and C hemistry - challengeon 04-22-2025 Glucose [Mass/Vol] 157 mg/dL High 70 - 100 mg/dL [facility] Glucose [Mass/Vol] 250 mg/dL High 70 - 100 mg/dL [facility] Glucose [Mass/Vol] 356 mg/dL High 70 - 100 mg/dL [facility] Glucose [Mass/Vol] 277 mg/dL High 70 - 100 mg/dL [facility] Average glucose Estimated from glycated hemoglobin (Bld) [Mass/Vol] 180 mg/dL [facility] Laboratory - Drug toxicology on 04-22-2025 Vancomycin trough [Mass/Vol] 12.4 ug/mL [facility] Laboratory - Hematology and Cell countson 04-22-2025 HbA1c (Bld) [Mass fraction] 7.9 % High [facility] Comment on above: Normal less than 5.7 % Prediabetes 5.7% to 6.4% Diabetes 6.5% or higher --HgbA1C levels may not be accurate in patients who have renal disease, received recent blood transfusions, are anemic, or who have dyshemoglobinemia. No Panel Informationon 04-22 Interpretation and review of laboratory results Abnormal [facility] Performed by: [place] [id number] CLIA ID: [id number] [facility] Interpretation and review of laboratory results Abnormal [facility] Performed by: [place] [address] CLIA ID: [id number] [facility] Interpretation and review of laboratory results Abnormal [facility] Performed by: [facility], [address] [place] [id number] CLIA ID: [id number] [facility] Interpretation and review of laboratory results Abnormal [facility] Performed by: [facility], [address] [place] [address] CLIA ID: [id number] [facility] Interpretation and review of laboratory results Abnormal [facility] HbA1c values of 5.7-6.4 percent indicate an increased risk for developing diabetes mellitus. HbA1c values greater than or equal to 6.5 percent are diagnostic of diabetes mellitus. For diagnosis of diabetes in individuals without unequivocal hyperglycemia, results should be confirmed by repeat testing. [facility] VANCOMYCIN, AUC TIMED DOSING on 04-22-2025 VANCOMYCIN, AUC 12.4 ug/mL Normal [facility] Comment on above: Result Comment: [facility] COMMENTS: Please draw random level at least >2 hours after the end of the last vancomycin infusion, or 30-minutes before next infusion. Toxicity is seen at concentrations >80-100 ug/mL Therapeutic (Peak) range: 20-40 Therapeutic (Trough) range: 5-10 Performed By: #### L [id number] #### Human Resource Management Instructor: BIANCA NICHOLS ([id number]) [facility] ([facility]) [address] [place] [address] Vancomycin trough [Mass/Vol] on 04-22-2025 Toxicity is seen at concentrations >80-100 ug/mL Therapeutic (Peak) range: 20-40 Therapeutic (Trough) range: 5-10 [facility] Wound Cultureon 04-22-2025 WC L BUTTOCKS Wound Culture Copy of report sent to Infection Control Printer [id number] 04/20/25 07[facility] Meth. resistant Staph. aureus Amount Growth 3+ mecA Testing not performed MORMOM Amount Growth 3+ Morganella morganii sp morgani Amount Growth 3+ Enterococcus faecalis Proteus mirabilis EAVI Meth. resistant Staph. aureus: REACTION Enterococcus faecalis Doxycycline Islt HARINDER <=0.5 Clindamycin Islt HRAINDER R Enterococcus avium Erythromycin Islt HARINDER Gentamicin [...] SYN-S S Vancomycin Islt HARINDER <=0.5 Normal [facility] Comment on above: Performed By: #### L 101.9900, L100.0500, L500.4050, L501.6710 #### [facility] [address] [place], [address] BLOOD CULTUREon 04-21-2025 Bacteria identified Cx Nom (Bld) BLOOD CULTURE Reference No growth at 5 days ORDER COMMENTS: Blood Collection Site: Left PICC Purple Lumen [ S = SUSCEPTIBLE R = RESISTANT I = INTERMEDIATE S-DD = Susceptible-dose dependent NS = Non-susceptible NO = No Interpretation ] Normal [facility] Comment on above: Performed By: #### L [id number] #### Human Resource Management Instructor: BIANCA NICHOLS ([id number]) [facility] ([facility]) [address] [place] [address] Bacteria identified Cx Nom (Bld) BLOOD CULTURE Reference No growth at 5 days ORDER COMMENTS: Blood Collection Site: Right Forearm [ S = SUSCEPTIBLE R = RESISTANT I = INTERMEDIATE S-DD = Susceptible-dose dependent NS = Non-susceptible NO = No Interpretation ] Normal [facility] Comment on above: Performed By: #### L [id number] #### Human Resource Management Instructor: BIANCA NICHOLS ([phone]) [facility] ([facility]) [address] [place] [address] CBC W Auto Differential pane l (Bld)on 04-21-2025 Basophils (Bld) [#/Vol] 0.1 10*3/uL 0.0 - 0.2 10*3/uL [facility] [employer] Basophils/100 WBC (Bld) 0.6 % 0.0 - 2.0 % [facility] [employer] Eosinophils (Bld) [#/Vol] 0.3 10*3/uL 0.0 - 0.5 10*3/uL [facility] Eosinophils/100 WBC (Bld) 2.3 % 0.0 - 6.0 % [facility] [employer] Erythrocyte distribution width (RBC) [Ratio] 14.9 % 11.5 - 15.0 % [facility] Hematocrit (Bld) [Volume fraction] 35.6 % Low 40.0 - 52.0 % [facility] Hemoglobin (Bld) [Mass/Vol] 11.7 g/dL Low 13.0 - 18.0 g/dL [facility] [employer] Immature granulocytes (Bld) [#/Vol] 0.1 10*3/uL High NINF - 0.1 10*3/uL [facility] Immature granulocytes/100 WBC (Bld) 0.5 % 0.0 - 2.0 % [facility] Interpretation and review of laboratory results Abnormal [facility] [employer] Lymphocytes (Bld) [#/Vol] 2.3 10*3/uL 1.0 - 4.3 10*3/uL [facility] Lymphocytes/100 WBC (Bld) 18.1 % 15.0 - 45.0 % [facility] MCH (RBC) [Entitic mass] 29 pg 26. 0 - 34.0 pg [facility] MCHC (RBC) [Mass/Vol] 32.9 % 30.5 - 36.0 % [facility] MCV (RBC) [Entitic vol] 88.3 fL 77.0 - 99.0 fL [facility] Monocytes (Bld) [#/Vol] 1 10*3/uL High 0.0 - 0.9 10*3/uL [facility] Monocytes/100 WBC (Bld) 7.8 % 5.0 - 13.0 % [facility] Neutrophils (Bld) [#/Vol] 8.8 10*3/uL High 1.8 - 7.5 10*3/uL [facility] Neutrophils/100 WBC (Bld) 70.7 % 38.0 - 82.0 % [facility] Nucleated RBC/100 WBC (Bld) [Ratio] 0 % [facility] Platelet mean volume (Bld) [Entitic vol] 9.8 fL 9.0 - 12.7 fL [facility] Platelets (Bld) [#/Vol] 372 10*3/uL 140 - 440 10*3/uL [facility] RBC (Bld) [#/Vol] 4.03 10*6/uL Low 4.40 - 5.9 0 10*6/uL [facility] WBC (Bld) [#/Vol] 12.5 10*3/uL High 3.6 - 10.7 10*3/uL [facility] CBC WITH AUTO DIFFERENTIALon 04-21-2025 Basophils (Bld) [#/Vol] 0.1 10*3/uL Normal 0.0-0.2 [facility] Comment on above: Performed By: #### L [id number], [id number] ####Human Resource Management Instructor: BIANCA NICHOLS ([id number])[facility] ([address] Basophils/100 WBC (Bld) 0.6 % Normal 0.0-2.0 S [facility] Comment on above: Performed By: #### L AB322, [id number] ####Human Resource Management Instructor: BIANCA NICHOLS ([id number])[facility] [address] Eosinophils (Bld) [#/Vol] 0.3 10*3/uL Normal 0.0-0.5 [facility] Comment on above: Performed By: #### L AB322, [id number] ####Human Resource Management Instructor: BIANCA NICHOLS ([id number])[address] Eosinophils/100 WBC (Bld) 2.3 % Normal 0.0-6.0 [facility] Comment on above: Performed By: #### Mina AB322, [id number] ####Human Resource Management Instructor: BIANCA NICHOLS ([id number])[address] Erythrocyte distribution width (RBC) [Ratio] 14.9 % Normal 11.5-15.0 [facility] Comment on above: Performed By: #### Mina AB322, [id number] ####Human Resource Management Instructor: BIANCA NICHOLS ([id number])[address] Hematocrit (Bld) [Volume fraction] 35.6 % Low 40.0-52.0 [facility] Comment on above: Performed By: #### L AB322, [id number] ####Human Resource Management Instructor: BIANCA NICHOLS ([id number])[address] Hemoglobin (Bld) [Mass/Vol] 11.7 g/dL Low 13.0-18.0 [facility] Comment on above: Performed By: #### L AB322, [id number] ####Human Resource Management Instructor: BIANCA NICHOLS ([id number])[address] IMMATURE GRANS % 0.5 % Normal 0.0-2.0 [facility] Comment on above: Performed By: #### L AB322, [id number] ####Human Resource Management Instructor: BIANCA [id number])[facility] ([facility])[address] [place] [address] IMMATURE GRANS ABSOLUTE 0.1 10*3/uL High <0.1 [facility] Comment on above: Performed By: #### Mina AB322, [id number] ####Human Resource Management Instructor: BIANCA NICHOLS ([phone])[facility])[address] [place] [address] Lymphocytes (Bld) [#/Vol] 2.3 10*3/uL Normal 1.0-4.3 [facility] Comment on above: Performed By: #### Mina AB322, [id number] ####Human Resource Management Instructor: BIANCA NICHOLS ([phone])[address] Lymphocytes/100 WBC (Bld) 18.1 % Normal 15.0-45.0 [facility] Comment on above: Performed By: #### Mina AB322, [id number] ####Human Resource Management Instructor: BIANCA NICHOLS ([id number])[facility])[address] [place] [address] MCH (RBC) [Entitic mass] 29.0 pg Normal 26.0-34.0 [facility] Comment on above: Performed By: #### Mina AB322, [id number] ####Human Resource Management Instructor: BIANCA NICHOLS ([id number])[address] MCHC 32.9 % Normal 30.5-36.0 [facility] Comment on above: Performed By: #### Mina AB322, [id number] ####Human Resource Management Instructor: BIANCA NICHOLS ([id number])[facility])[address] [place] [address] MCV (RBC) [Entitic vol] 88.3 fL Normal 77.0-99.0 S [facility] Comment on above: Performed By: #### Mina AB322, [id number] ####Human Resource Management Instructor: BIANCA NICHOLS ([id number])[place] [address] [place] Monocytes (Bld) [#/Vol] 1.0 10*3/uL High 0.0-0.9 [facility] Comment on above: Performed By: #### L AB322, [id number] ####Human Resource Management Instructor: BIANCA NICHOLS ([id number])[facility] ([facility])[address] [place] [address] Monocytes/100 WBC (Bld) 7.8 % Normal 5.0-13.0 [facility] Comment on above: Performed By: #### Mina AB322, [id number] ####Human Resource Management Instructor: BIANCA NICHOLS ([id number])[facility] ([facility])[address] [place] [address] NEUTROPHILS ABSOLUTE 8.8 10*3/uL High 1.8-7.5 [facility] Comment on above: Performed By: #### Mina AB322, [id number] ####Human Resource Management Instructor: BIANCA NICHOLS ([id number])[facility] ([facility])[address] [place] [address] Neutrophils/100 WBC (Bld) 70.7 % Normal 38.0-82.0 [facility] Comment on above: Performed By: #### Mina [id number], [id number] ####Human Resource Management Instructor: BIANCA NICHOLS ([id number])[facility] ([facility])[address] [place] [address] NRBC 0.0 /100 WBCs Normal 0.0-2.0 [facility] Comment on above: Performed By: #### Mina AB322, [id number] ####Human Resource Management Instructor: BIANCA NICHOLS ([phone])[facility] ([facility])[address] [place] [address] Platelet mean volume (Bld) [Entitic vol] 9.8 fL Normal 9.0-12.7 [facility] Comment on above: Performed By: #### L [id number], [id number] ####Human Resource Management Instructor: BIANCA NICHOLS ([phone])[facility] ([facility])[address] Platelets (Bld) [#/Vol] 372 10*3/uL Normal 140-440 [facility] Comment on above: Performed By: #### L AB322, [id number] ####Human Resource Management Instructor: BIANCA NICHOLS ([phone])[facility] ([facility])[address] [place] [address] RBC (Bld) [#/Vol] 4.03 10*6/uL Low 4.40-5.90 [facility] Comment on above: Performed By: #### L AB322, [id number] ####Human Resource Management Instructor: BIANCA NICHOLS ([id number])[facility] ([facility])[address] [place] [address] WBC (Bld) [#/Vol] 12.5 10*3/uL High 3.6-10.7 [facility] Comment on above: Performed By: #### L AB322, [id number] ####Human Resource Management Instructor: BIANCA NICHOLS ([phone])[facility] ([facility])[address] [place] [address] COMPREHENSIVE METABOLIC PANE Antonio 04-21-2025 Albumin [Mass/Vol] 2.3 g/dL Low 3.4-4.8 [facility] Comment on above: Performed By: #### L AB17 ####Human Resource Management Instructor: BIANCA NICHOLS ([id number])[facility] ([facility])[address] [place] [address] ALP [Catalytic activity/Vol] 116 U/L Normal 40-150 [facility] Comment on above: Performed By: #### L AB17 ####Human Resource Management Instructor: BIANCA NICHOLS ([phone])[facility])[address] [place] [address] ALT [Catalytic activity/Vol] 6 U/L Normal <40 [facility] Comment on above: Performed By: #### L AB17 ####Human Resource Management Instructor: BIANCA NICHOLS ([phone])[facility])[address] [place] [address] Anion gap [Moles/Vol] 10 mmol/L Normal 3-13 [facility] Comment on above: Performed By: #### L AB17 ####Human Resource Management Instructor: BIANCA NICHOLS ([phone])[facility] ([facility])[address] [place] [address] AST [Catalytic activity/Vol] 13 U/L Normal <34 [facility] Comment on above: Performed By: #### L AB17 ####Human Resource Management Instructor: BIANCA NICHOLS ([id number])[facility])[address] [place] [address] Bilirubin [Mass/Vol] 0.5 mg/dL Normal <1.2 [facility] Comment on above: Performed By: #### L AB17 ####Human Resource Management Instructor: BIANCA NICHOLS ([phone])[facility] ([facility])[address] [place] [address] Calcium [Mass/Vol] 8.5 mg/dL Low 8.8-10.0 [facility] Comment on above: Performed By: #### L AB17 ####Human Resource Management Instructor: BIANCA NICHOLS ([phone])[facility])[address] [place] [address] Chloride [Moles/Vol] 99 mmol/L Normal 98-107 [facility] Comment on above: Performed By: #### L AB17 ####Human Resource Management Instructor: BIANCA NICHOLS ([phone])[facility] ([facility])[address] [place] [address] [place] CO2 [Moles/Vol] 21 mmol/L Low 23-31 [facility] Comment on above: Performed By: #### L AB17 ####Human Resource Management Instructor: BIANCA NICHOLS ([phone])[facility] ([facility])[address] [place] [address] [place] Creatinine [Mass/Vol] 0.65 mg/dL Low 0.72-1.25 [facility] Comment on above: Performed By: #### L AB17 ####Human Resource Management Instructor: BIANCA NICHOLS ([phone])[facility])[address] [place] [address] GLOMERULAR FILTRATION RATE ML/MIN/1.73 SQ M.PREDICTED >90.0 Normal >60.0 [facility] Comment on above: Result Comment: Calc ulation based on the Chronic Kidney Disease Epidemiology Collaboration (CKD-EPI) equation refit without adjustment for race Performed By: #### L AB17 ####Human Resource Management Instructor: BIANCA NICHOLS ([id number])[facility])[address] [place] [address] Glucose [Mass/Vol] 202 mg/dL High 82-115 [facility] Comment on above: Performed By: #### L AB17 ####Human Resource Management Instructor: BIANCA NICHOLS ([id number])[address] Potassium [Moles/Vol] 4.3 mmol/L Normal 3.5-5.1 [facility] Comment on above: Result Comment: [facility] potassium values may be up to 0.5 mmol/L lower than serum values. Performed By: #### L AB17 ####Human Resource Management Instructor: BIANCA NICHOLS ([id number])[facility])[address] [place] [address] Protein [Mass/Vol] 7.6 g/dL Normal 6.4-8.3 [facility] Comment on above: Performed By: #### L AB17 ####Human Resource Management Instructor: BIANCA NICHOLS ([phone])[facility])[address] [place] [address] [place] Sodium [Moles/Vol] 130 mmol/L Low 136-145 [facility] Comment on above: Performed By: #### L AB17 ####Human Resource Management Instructor: BIANCA NICHOLS ([phone])[place] [address] [place] Urea nitrogen [Mass/Vol] 10 mg/dL Normal 9-23 [facility] Comment on above: Performed By: #### L AB17 ####Human Resource Management Instructor: BIANCA [id number])[facility])[address] [place] [address] CULTURE ANAEROBICon 04-21-20 CULTURE ANAEROBIC ANAEROBIC CULTURE (A ) Reference ANAEROBIC GRAM NEGATIVE BACILLI, NOT B. FRAGILIS Moderate Anaerobic Gram-negative bacilli, not B. fragilis (A) [ S = SUSCEPTIBLE R = RESISTANT I = INTERMEDIATE S-DD = Susceptible-dose dependent NS = Non-susceptible NO = No Interpretation ] Normal [facility] Comment on above: Performed By: #### L AB39 #### Human Resource Management Instructor: BIANCA NICHOLS ([id number]) [facility]) [address] [place] [address] CULTURE, AEROBIC BACTERIA WI TH GRAM STAINon [...] Non-susceptible NO = No Interpretation ] Normal [facility] Comment on above: Performed By: #### L AB39 #### Human Resource Management Instructor: BIANCA NICHOLS ([id number]) [facility] ([facility]) [address] [place] [address] Comprehensive metabolic 1998 panelon 04-21-2025 Albumin [Mass/Vol] 2.3 g/dL Low 3.4 - 4.8 g/dL [facility] ALP [Catalytic activity/Vol] 116 U/L 40 - 150 U/L [facility] ALT [Catalytic activity/Vol] 6 U/L NINF - 40 U/L [facility] Anion gap [Moles/Vol] 10 mmol/L 3 - 13 mmol/L [facility] AST [Catalytic activity/Vol] 13 U/L NINF - 34 U/L [facility] Bilirubin [Mass/Vol] 0.5 mg/dL NINF - 1.2 mg/dL [facility] Calcium [Mass/Vol] 8.5 mg/dL Low 8.8 - 10. 0 mg/dL [facility] Chloride [Moles/Vol] 99 mmol/L 98 - 10 7 mmol/L [facility] CO2 [Moles/Vol] 21 mmol/L Low 23 - 31 mmol/L [facility] Creatinine [Mass/Vol] 0.65 mg/dL Low 0.72 - 1.25 mg/dL [facility] GFR/1.73 sq M.predicted (S/P/Bld) [Vol rate/Area] - PINF [facility] Comment on above: Calculation based on the Chronic Kidney Disease Epidemiology Collaboration (CKD-EPI) equation refit without adjustment for race Glucose [Mass/Vol] 202 mg/dL High 82 - 115 mg/dL [facility] Interpretation and review of laboratory results Abnormal [facility] Potassium [Moles/Vol] 4.3 mmol/L 3.5 - 5.1 mmol/L [facility] Comment on above: Plasma potassium leonie ues may be up to 0.5 mmol/L lower than serum values. Protein [Mass/Vol] 7.6 g/dL 6.4 - 8.3 g/dL [facility] Sodium [Moles/Vol] 130 mmol/L Low 136 - 145 mmol/L [facility] Urea nitrogen [Mass/Vol] 10 mg/dL 9 - 23 mg/dL [facility] ED Nursing Noteon 04-21-2025 ED Nursing Note Placed new meplix pads on open wounds on sacrum. Pictures updated in pt's chart. Normal [facility] ED Provider Noteon ED Provider Note EMERGENCY DEPARTMENT ENCOUNTER Pt Name: Anmol Reynolds Birthdate 1960 Date of evaluation: 04/21/2025 ED Provider: Chele León MD CHIEF COMPLAINT Chief Complaint Patient presents with Wound Infection Per EMS pt was sent here from the [facility] for wound infections. Pt has two wound on his sacrum - one at the top of sacrum and one at the bottom of the buttocks. Denies any fever/ CP/FEVER/ SOB. Pt is paralysis. HISTORY OF PRESENT ILLNESS (Location/Symptom, Timing/Onset, Context/Setting, Quality, Duration, Modifying Factors, Severity) Note limiting factors. I wore appropriate PPE for the entirety of this encounter. HPI Anmolzulma Reynolds is a 64 y.o. adult who [...] Family History[3] SOCIAL HISTORY Social History[4] SCREENINGS Amidon Coma Scale Best Eye Response: Spontaneous Best [...] Eyes: Ex (more content not included)... Normal [facility] ESR (Bld) [Velocity]Ordered By: Grecia Hutton on 04-21-2025 Interpretation and review of laboratory results Abnormal [facility] HEMOGLOBIN A1Con 04-21-2025 Glucose [Mass/Vol] 180 mg/dL Normal [facility] Comment on above: Result Comment: [facility]OS[facility] Barney [...] repeat testing. Performed By: #### L [id number] ####Human Resource Management Instructor: BIANCA NICHOLS ([phone])[address] HEMOGLOBIN A1C 7.9 %HbA1C High <5.7 [facility] Comment on above: Result Comment: Norm al less than 5.7% Prediabetes 5.7% to 6.4% Diabetes 6.5% or higher --HgbA1C levels may not be accurate in patients who have renal disease, received recent blood transfusions, are anemic, or who have dyshemoglobinemia. Performed By: #### L AB90 ####Human Resource Management Instructor: BIANCA NICHOLS ([phone])[facility])[address] [place] [address] LACTIC ACID WITH REFLEXon Lactate [Moles/Vol] 1.1 mmol/L Normal 0.5-2.2 [facility] Comment on above: Performed By: #### L [id number] ####Human Resource Management Instructor: BIANCA NICHOLS ([phone])[facility] ([facility])[address] [place], [place] [id number] [facility] Laboratory - Chemistry and C hemistry - challengeon 04-21-2025 Lactate [Moles/Vol] 1.1 mmol/L 0.5 - 2. 2 mmol/L [facility] Laboratory - Hematology and Cell countsOrdered By: Grecia Hutton on 04-21-2025 ESR (Bld) [Velocity] 78 mm/h High [facility] No Panel Informationon 04-21 Interpretation and review of laboratory results Normal [facility] Progress Noteon 04-21-2025 Progress Note [...] EMS pt was sent here from the [facility] for wound infections. Pt has two wound [...] Family History[3] SOCIAL HISTORY Social History[4] SCREENINGS Am[place]on Coma Scale Best Eye Response: Spontaneous Best Verbal Response: Oriented Best Motor Response: Follows commands Beatrice (more content not included)... Normal [facility] SEDIMENTATION RATE, AUTOMATE Don 04-21-2025 SEDIMENTATION RATE, ERYTHROCYTE 78 mm/hr High 0-10 [facility] Comment on above: Performed By: #### L [id number], [id number] ####Human Resource Management Instructor: BIANCA NICHOLS ([id number])[facility] ([address] Urine Cultureon 04-20-2025 [facility] Providencia stuartii [place] Count >100,000 Providencia stuartii: REACTION Ampicillin Islt HARINDER >=32 Ampicillin+Sulbac Islt HARINDER R Cefepime Islt HARINDER <=0.12 S cefTRIAXone Islt HARINDER <=0.25 S Ciprofloxacin Islt HARINDER >=4 R Gentamicin Islt HARINDER R levoFLOXacin Islt HARINDER >=8 R Meropenem Islt HARINDER 1 S Nitrofurantoin Islt HARINDER 128 R Pip+Tazo Islt HARINDER <=4 S TMP SMX Islt HARINDER >=320 R Normal [facility] Comment on above: Performed By: #### L 101.9900, L100.0500, L500.4050, L501.6710 #### [facility] [address] [place], [place], [address] Amorphous sediment detection in urine sediment by light microscopyOrdered By: Tab Dupont on 04-18-2025 Amorphous sediment LM Ql (Urine sed) 4+ [facility] Bilirubin Test strip Ql (U)O rdered By: Tab Dupont on 04-18-2025 Bilirubin Ql (U) Negative Negative [facility] Gram Stainon 04-18-2025 GS L BUTTOCKS Gram Stain 4+ Gram positive cocci 1+ Gram negative rods 2+ White Blood Cells Normal [facility] Comment on above: Performed By: #### L 101.9900, L100.0500, L500.4050, L501.6710 #### [facility] [address] [place], [address] Ketones Test strip Ql (U)Ord ered By: Tab Dupont on 04-18-2025 Ketones Ql (U) Negative Negative [facility] Microscopic analysis of urin e for red blood cells (RBC)Ordered By: Tab Dupont on 04-18-2025 Microscopic analysis of urine for red blood cells (RBC) 0 SEEN /hpf 0-5 [facility] Mucus LM Ql (Urine sed)Order ed By: Tab Dupont on 04-18-2025 Mucus Ql (Urine sed) 0 SEEN /hpf [facility] Nitrite Test strip Ql (U)Ord ered By: Tab Dupont on 04-18-2025 Nitrite Ql (U) Positive High Negative [facility] Protein Test strip Ql (U)Ord ered By: Tab Dupont on 04-18-2025 Protein Ql (U) 100 mg/dl High Negative [facility] Squamous epithelial cells de tection in urine sediment by light microscopyOrdered By: Tab Dupont on 04-18-2025 Epithelial cells.squamous LM Ql (Urine sed) 0 SEEN /hpf 0-5 [facility] Triple phosphate crystals de tection in urine sediment by light microscopyOrdered By: Tab Dupont on 04-18-2025 Triple phosphate crystals LM Ql (Urine sed) 4+ /hpf [facility] Urinalysis, Completeon 04-18 AMORPHOUS 4+ Normal [facility] Comment on above: Order Comment: 301.2 Performed By: #### L 101.9900, L100.0500, L500.4050, L501.6710 #### [facility] [address] [place], [address] WBC 0-5 SEEN Normal 0-5 [facility] Comment on above: Order Comment: 301.2 Performed By: #### L 101.9900, L100.0500, L500.4050, L501.6710 #### [facility] [address] [place], [address] TRIPLE PHOS 4+ /hpf Normal [facility] Comment on above: Order Comment: 301.2 Performed By: #### L 101.9900, L100.0500, L500.4050, L501.6710 #### [facility] [address] [place], [address] BACTERIA 0 SEEN Normal None Seen [facility] Comment on above: Order Comment: 301.2 Performed By: #### L 101.9900, L100.0500, L500.4050, L501.6710 #### [facility] [address] [place], [address] EPI,SQUAMOUS 0 SEEN Normal 0-5 [facility] Comment on above: Order Comment: 301.2 Performed By: #### L 101.9900, L100.0500, L500.4050, L501.6710 #### [facility] [address] [place], [address] Mucus Ql (Urine sed) 0 SEEN Normal [facility] Comment on above: Order Comment: 301.2 Performed By: #### L 101.9900, L100.0500, L500.4050, L501.6710 #### [facility] [address] [place], [address] RBC 0 SEEN Normal 0-5 [facility] Comment on above: Order Comment: 301.2 Performed By: #### L 101.9900, L100.0500, L500.4050, L501.6710 #### [facility] [address] [place], [address] Urine clarityOrdered By: Regino Dupont on 04-18-2025 Clarity (U) Turbid Clear [facility] Urine color determinationOrd ered By: Tab Dupont on 04-18-2025 Color (U) Yellow Yellow [facility] Urine cultureOrdered By: Regino Dupont on 04-18-2025 Bacteria identified Cx Nom (U) Providencia stuartii Abnormal [facility] Urine glucose detectionOrder ed By: Tab Dupont on 04-18-2025 Glucose Ql (U) 100 mg/dl High Normal [facility] Urine leukocyte esterase det ection by dipstickOrdered By: Tab Dupont on 04-18-2025 Leukocyte esterase Test strip Ql (U) 500 /ul High Negative [facility] Urine pHOrdered By: Tab cordova on 04-18-2025 pH (U) 8.0 [pH] 5.0 - 8.0 [facility] Urine sediment bacteria coun t by microscopy (number/high power field)Ordered By: Tab Dupont on 04-18-2025 Bacteria LM.HPF (Urine sed) [#/Area] 0 /[HPF] None Seen [facility] Urine specific gravity measu rementOrdered By: Tab Dupont on 04-18-2025 Specific gravity (U) [Rel density] 1.015 1.002-1.030 [facility] Urine urobilinogen measureme ntOrdered By: Tab Dupont on 04-18-2025 Urobilinogen Ql (U) Normal mg/dl Normal [facility] White blood cell countOrdere d By: Tab Dupont on 04-18-2025 White blood cell count 0-5 SEEN /hpf 0-5 [facility] Gram stainOrdered By: Tab Dupont on 04-16-2025 Microscopic observation Gram stain Nom (Unsp spec) [facility] Routine wound cultureOrdered By: Tab Dupont on 04-16-2025 Microbial culture, routine Meth. resistant Staph. aureus Abnormal [facility] Microbial culture, routine Morganella morganii sp morgani Abnormal [facility] CNPNon 03-24-2025 CNPN Telephone (UROLAE) GIVEN,ANMOL ARAUJO ([id number]) 1960 M Date Time Provider Department 03/24/25 [...] Comments as of 02/17/2025: Verified medications with [facility] 02/17/2025 Problem List As Of Date 03/24/2025 Noted Resolved NO SHOW [[id number]] 08/31/2013 05/29/2020 Perineal abscess [L02.215] 06/13/2019 05/29/2020 [...] 02/17/2025 Proctoco (more content not included)... Normal [facility] ANES POSTPROC EVALon 025 ANES POSTPROC EVAL HNO ID: [id number] Author: AUDREY SIMMONS MD Service: Anesthesiology Author Type: Anesthesiologist Type: Anesthesia Postprocedure Evaluation Filed: 03/20/2025 12:16 Note Text: POST ANESTHESIA EVALUATION NOTE : 1960 Procedure Summary Date: 03/20/25 Room / Location: MS OR / MS OR Anesthesia Start: 1024 Anesthesia Stop: 1114 [...] March 20, 2025 TIME: 12:16 PM CSN: [id number] Normal [facility] ANES PRE-OPon 03-20-2025 ANES PRE-OP HNO ID: [id number] Author: AUDREY SIMMONS MD Service: Anesthesiology Author [...] as needed (more content not included)... Normal [facility] HISTORY PHYSICALon HISTORY PHYSICAL HNO ID: [id number] Author: ANMOL HERBERT MD Service: Urology Author [...] ankle 11/26/2021 Coronary artery disease Hx:Afib Diabetes ([facility]) Elevated CA 19-9 level 08/21/2021 Epidural abscess ([facility]) 01/04/2022 MRSA bacteremia 11/27/2021 Neuropathy Nicotine use disorder, F17.2 06/14/2019 Pilonidal cyst with abscess 12/31/2020 Pilonidal cyst without abscess 05/29/2020 Pyelonephritis 11/27/2021 Sciatica Severe protein-calorie malnutrition ([facility]) 09/04/2021 Type 2 diabetes mellitus with hyperglycemia, with long-term current use of insulin ([facility]) 01/18/2021 Ureteral stone 11/25/2021 UTI (urinary tract infection) 11/26/2021 Vertebral osteomyelitis ([facility]) 01/04/2022 PAST SURGICAL HISTORY: PAST SURGICAL HISTORY [...] Value 02/22 (more content not included)... Normal [facility] OPERATIVE NOon 03-20-2025 OPERATIVE NO HNO ID: [id number] Author: ANMOL HERBERT MD Service: Urology Author Type: Physician Type: Operative Report Filed: 03/21/2025 07:31 Note Text: OPERATIVE/PROCEDURE REPORT LOG ID: [id number] SURGERY/PROCEDURE DATE: 03/20/2025 INCISION/PROCEDURE START TIME: 10:34 AM INCISION CLOSE/PROCEDURE END TIME: 11:03 AM SURGEON(S)/PROCEDURAL IST(S) AND REVENUE STAMP CLERK(S): Surgeons and Role: * Anmol Herbert MD - Primary * Jose Nesbitt MD - Resident - Assisting No Additional Staff SURGERY/PROCEDURE(S): CYSTOSCOPY, RETROPYELOGRAM: 27715 (CPT?) CYSTOURETHROSCOPY W/ REMOVE URETERAL STENT: 34813 (CPT?) INSERTION STENT DOUBLE J: 30061 (CPT?) ANESTHESIA: General SURGERY/PROCEDURE DETAILS: Anmol Reynolds [...] the beginning of the procedure. Chronic 20 [place] catheter was removed. A 21F cystourethroscope was [...] all mucus and cystoscope was removed. 20 [place] catheter with 10 cc in balloon was replaced. Patient awoken from anesthesia having tolerated the procedure well. Anmol Gayle Reynolds Was transferred to recovery room. PRE-OP/PRE-PROCEDURE DIAGNOSIS: Pre-existing ureteral stents bilateral POST-OP/POST-PROCEDUR E DIAGNOSIS: Same ESTIMATED BLOOD LOSS: 0 ml SPECIMENS: None IMPLANTABLE DEVICES: NONE DRAINS: 20 [place] catheter with 10 cc in balloon [...] MD March 21, 2025 7:31 AM Normal [facility] XR RETROGRADE PYELOGRAM BILo n 03-20-2025 XR RETROGRADE PYELOGRAM KENROY * * *Final Report* * * DATE OF EXAM: Mar 20 2025 5:16PM [place] 3021 - XR RETROGRADE PYELOGRAM KENROY / [...] of ureteral stents and bilateral retrograde pyelograms. [facility] Lab Technician: CECILIA Transcribe Date/Time: Mar 21 2025 8:21A Dictated by : KATHRIN MCKNIGHT MD This examination was interpreted and the report reviewed and electronically signed by: KATHRIN MCKNIGHT MD on Mar 21 2025 8:23AM EST [id number] N [facility] NURSING PROGon 03-17-2025 NURSING PROG HNO ID: [id number] Author: VICTORIANO GRANT RN Service: ? Author Type: Registered Nurse Type: Nursing Progress Note Filed: 03/17/2025 13:04 Note Text: Spoke w/ Comfort,surgical schedule @ 's office to verify scheduled time of Sx for Thursday;AND was directed that OR scheduled for 10:00;AND Eliquis does Not need to be held for procedure. [facility] 36on 03-15-2025 36 Spoke to nursing facility who states Pt is going to proceed with surgery at [facility]. [facility] 36 Left message for Pts nurse to call me back. [facility] CNOVon 03-14-2025 CNOV Office Visit ([facility] ) GIVEN,ANMOL ARAUJO ([id number]) 1960 M Date Time Provider Department 03/14/25 1:50 PM MILAD GOODSON [facility]WDMR During your visit today, we recorded the following information about you: Temperature Pulse Respiration Blood pressure 98 degrees 84/minute 20/minute 107/70 Dawood Tiwrai, LIBRADO 03/14/2025 2:54 PM Addendum Nursing Documentation Pertinent Medical History: paraplegia, MRSA, osteomyelitis, UTI, DM2, neuropathy, pyelonephritis, Wound Etiology according to patient: sacrum wound has had for four years per pt Patient arrived via: self in motorized wheelchair - patient is a [place] with multiple staff Home Care Company/Nursing Facility: [facility] Consent captured for debridement per (Provider) and good until Special Instructions (for example, patient stands at the bedside for exam/dressing): bed Anticoagulant Therapy: Eliquis Living Situation (ie... Apartment, house, [facility] Who [facility] patient: facility Who will [...] BY PROVIDER: Anesthetic Used: N/A applied per warehouse unloader # 1 AND 2 Other procedure: Specimen [...] COMPRESSION: N/A DME: Prism order date DME: [facility] [facility] [employer] , PH: [phone] SPECIAL NEEDS: EFax orders to [facility] [place] [phone] Emotional support N/A OR set-up N/A Culinary Intern N/A Incontinence needs N/A DISCHARGED in stable [...] be drawn PARI and results faxed to [facility] [phone] Stop smoking EDUCATION: The patient/family was instructed [...] been diagnosed with (more content not included)... [facility] 36on 03-13-2025 36 Still need disc with images. Will need to review with Dr. Grimm. [facility] 36 Is it OK to get Pt scheduled for surgery? Please advise. [facility] 37on 03-07-2025 37 Need images from [facility] on disc brought to office for review in order for patient to have ureteral stent treatment at [facility]. Patient prefers [facility]. CT abdomen/pelvis 02/16/25 XR abdomen 02/16/25 and 02/17/25 Planning for ESWL vs laser litho w stent exchange. [facility] Office Visiton 03-07-2025 Follow-up visit [id number] Anmol Reynolds 1960 M Date Provider Department Center 03/07/2025 [id number] [facility] URO None No family history on file Level of Service:00649 DC OFFICE/OUTPATIENT ESTABLISHED MOD MDM 30 MIN Reason for Visit and Comments: Nephrolithiasis [387873] [facility] Progress Noteon 03-07-2025 Progress Note Yoana Solitario APRN - SHARIFA 03/07/2025 9:15 AM Urology Office Visit [facility] UR[facility]Y [address], [address] [facility] [address] PATIENT NAME: Anmol D Given DATE OF : 1960 REFERRING PROVIDER: [...] negative rods. Treated. Follow up outpatient with [facility] urology Patient is scheduled for surgery w Dr Maria on 03/20/25 however he prefers treatment at [facility] Will need images for surgery planning. [...] 8. Details above. 9. Follow-up as indicated. [facility] Lab Technician: LISAB Transcribe Date/Time: Feb 16 2025 10:02P Dictated by : CORBIN PERRY MD This examination was interpreted and the report reviewed and electronically signed by: CORBIN PERRY MD on Feb 16 2025 10:34PM EST Narrative * * *Final Report* * * DATE OF EXAM: Feb 16 2025 8:33PM [facility] 0530 - CT ABD/PEL W IVCON [...] and sagittal (more content not included)... Normal [facility] Anion gap in Serum or Plasma Ordered By: Tab Dupont on 03-01-2025 Anion gap [Moles/Vol] 11 mmol/L 02-16 [facility] BUN/creatinine ratioOrdered By: Tab Dupont on 03-01-2025 Urea nitrogen/Creatinine [Mass ratio] 15.3 mg/mg 07-24 [facility] Basic Metabolic Profile (BMP )on 03-01-2025 BUN/CRE 15.3 RATIO Normal 07-24 [facility] Comment on above: Order Comment: 412-2 Performed By: #### L 500.2500, L100.0500 #### [facility] Laboratory [address] [place], [address] Calcium [Mass/Vol] 8.5 mg/dL Normal 7.6-11.0 [facility] Comment on above: Order Comment: 412-2 Performed By: #### L 500.2500, L100.0500 #### [facility] Laboratory [address] [place], [address] Chloride [Moles/Vol] 104 mmol/L Normal 98-108 [facility] Comment on above: Order Comment: 412-2 Performed By: #### L 500.2500, L100.0500 #### [facility] [address] [place], [address] CO2 [Moles/Vol] 21.8 mmol/L Normal 21.0-32.0 [facility] Comment on above: Order Comment: 412-2 Performed By: #### L 500.2500, L100.0500 #### [facility] [address] [place], [address] Creatinine [Mass/Vol] 0.59 mg/dL Low 0.70-1.20 [facility] Comment on above: Order Comment: 412-2 Performed By: #### L 500.2500, L100.0500 #### [facility] [address] [place], [address] GAP 11 Normal 5-15 [facility] Comment on above: Order Comment: 412-2 Performed By: #### L 500.2500, L100.0500 #### [facility] [address] [place], [address] GFR/1.73 sq M.predicted among non-blacks MDRD (S/P/Bld) [Vol rate/Area] 109 mL/min/{1.73_m2} Normal >60 [facility] Comment on above: Order Comment: 412-2 Result Comment: mL/m in/1.73m2 CKD-EPI Creatinine Equation (2020) Performed By: #### L 500.2500, L100.0500 #### [facility] [address] [place], [address] Glucose [Mass/Vol] 146 mg/dL High 70-99 [facility] Comment on above: Order Comment: 412-2 Performed By: #### L 500.2500, L100.0500 #### [facility] [address] [place], [address] Potassium [Moles/Vol] 4.0 mmol/L Normal 3.3-5.1 [facility] Comment on above: Order Comment: 412-2 Performed By: #### L 500.2500, L100.0500 #### [facility] [address] [place], [address] Sodium [Moles/Vol] 136 mmol/L Normal 133-145 [facility] Comment on above: Order Comment: 412-2 Performed By: #### L 500.2500, L100.0500 #### [facility] [address] [place], [address] Urea nitrogen [Mass/Vol] 9 mg/dL Normal 4-19 [facility] Comment on above: Order Comment: 412-2 Performed By: #### L 500.2500, L100.0500 #### [facility] [address] [place], [address] CBC-Complete Blood Cnt No Di ffon 03-01-2025 Erythrocyte distribution width (RBC) [Ratio] 15.4 % High 11.6-14.6 [facility] Comment on above: Order Comment: 412-2 Performed By: #### L 500.2500, L100.0500 #### [facility] [address] [place], [address] Hematocrit (Bld) [Volume fraction] 41.2 % Normal 40-54 [facility] Comment on above: Order Comment: 412-2 Performed By: #### L 500.2500, L100.0500 #### [facility] [address] [place], [address] Hemoglobin (Bld) [Mass/Vol] 12.9 g/dL Low 13.0-16.5 [facility] Comment on above: Order Comment: 412-2 Performed By: #### L 500.2500, L100.0500 #### [facility] [address] [place], [address] MCH (RBC) [Entitic mass] 29.5 pg Normal 27.0-32.0 [facility] Comment on above: Order Comment: 412-2 Performed By: #### L 500.2500, L100.0500 #### [facility] [address] [place], [address] MCHC (RBC) [Mass/Vol] 31.3 g/dL Low 32-36 [facility] Comment on above: Order Comment: 412-2 Performed By: #### L 500.2500, L100.0500 #### [facility] [address] [place], [address] MCV (RBC) [Entitic vol] 94.3 fL High 80-94 [facility] Comment on above: Order Comment: 412-2 Performed By: #### L 500.2500, L100.0500 #### [facility] [address] [place], [address] Platelet mean volume (Bld) [Entitic vol] 11.6 fL Normal 6.2-12.0 [facility] Comment on above: Order Comment: 412-2 Performed By: #### L 500.2500, L100.0500 #### [facility] [address] [place], [address] Platelets (Bld) [#/Vol] 345 10*3/uL Normal 150-450 [facility] Comment on above: Order Comment: 412-2 Performed By: #### L 500.2500, L100.0500 #### [facility] [address] [place], [address] RBC (Bld) [#/Vol] 4.37 10*6/uL Low 4.6-6.2 [facility] Comment on above: Order Comment: 412-2 Performed By: #### L 500.2500, L100.0500 #### [facility] [address] [place], [address] RDW SD 52.4 fl High 35.1-43.9 [facility] Comment on above: Order Comment: 412-2 Performed By: #### L 500.2500, L100.0500 #### [facility] [address] [place], [address] WBC (Bld) [#/Vol] 7.6 10*3/uL Normal 4.4-11.0 [facility] Comment on above: Order Comment: 412-2 Performed By: #### L 500.2500, L100.0500 #### [facility] Laboratory Juanis Soni [place], [place], [id number] Carbon dioxide, total [Moles /volume] in Central venous bloodOrdered By: Tab Dupont on 03-01-2025 CO2 [Moles/Vol] 21.8 mmol/L 21.0-32.0 [facility] Chloride assayOrdered By: Vinh Lehman on 03-01-2025 Chloride [Moles/Vol] 104 mmol/L 98-108 [facility] Erythrocyte distribution wid th ratioOrdered By: Tab Dupont on 03-01-2025 Erythrocyte distribution width (RBC) [Ratio] 15.4 % High 11.6-14.6 [facility] Erythrocyte distribution wid th standard deviationOrdered By: Tab Dupont on 03-01-2025 Erythrocyte distribution width (RBC) [Ratio] 52.4 fl High 35.1-43.9 [facility] Glomerular filtration rate ( GFR) estimation/1.73 sq m using serum, plasma, or whole bOrdered By: Tab Dupont on 03-01-2025 GFR/1.73 sq M.predicted among non-blacks MDRD (S/P/Bld) [Vol rate/Area] 109 mL/min/{1.73_m2} >60 [facility] Comment on above: mL/min/1.73m2 CKD-EP I Creatinine Equation (2020) Hematocrit Auto (Bld) [Volum e fraction]Ordered By: Tab Dupont on 03-01-2025 Hematocrit (Bld) [Volume fraction] 41.2 % 40-54 [facility] Hemoglobin measurementOrdere d By: Tab Dupont on 03-01-2025 Hemoglobin (Bld) [Mass/Vol] 12.9 g/dL Low 13.0-16.5 [facility] MCV (mean corpuscular volume ) determinationOrdered By: Tab Dupont on 03-01-2025 MCV (RBC) [Entitic vol] 94.3 fL High 80-94 [facility] Mean corpuscular hemoglobin (MCH) determinationOrdered By: Tab Dupont on 03-01-2025 MCH (RBC) [Entitic mass] 29.5 pg 27.0-32.0 [facility] Mean corpuscular hemoglobin concentration (MCHC) determinationOrdered By: Tab Dupont on 03-01-2025 MCHC (RBC) [Mass/Vol] 31.3 g/dL Low 32-36 [facility] Mean platelet volume determi nationOrdered By: Tab Dupont on 03-01-2025 Platelet mean volume (Bld) [Entitic vol] 11.6 fL 6.2-12.0 [facility] Platelet countOrdered By: Vinh Lehman on 03-01-2025 Platelets (Bld) [#/Vol] 345 10*3/uL 150-450 [facility] Potassium measurement (mass/ volume)Ordered By: Tab Dupont on 03-01-2025 Potassium (Unsp spec) [Mass/Vol] 4.0 mmol/L 3.3-5.1 [facility] RBC Auto (Bld) [#/Vol]Ordere d By: Tab Dupont on 03-01-2025 RBC (Bld) [#/Vol] 4.37 10*6/uL Low 4.6-6.2 [facility] Serum creatinine measurement (mass/volume)Ordered By: Tab Dupont on 03-01-2025 Creatinine [Mass/Vol] 0.59 mg/dL Low 0.70-1.20 [facility] Serum glucose measurement (m ass/volume)Ordered By: Tab Dupont on 03-01-2025 Glucose [Mass/Vol] 146 mg/dL High 70-99 [facility] Serum or plasma calcium randall urement (mass/volume)Ordered By: Tab Dupont on 03-01-2025 Calcium [Mass/Vol] 8.5 mg/dL 7.6-11.0 [facility] Serum or plasma urea nitroge n measurement (mass/volume)Ordered By: Tab Dupont on 03-01-2025 Urea nitrogen [Mass/Vol] 9 mg/dL 4-19 [facility] Sodium levelOrdered By: Omar Dupont on 03-01-2025 Sodium [Moles/Vol] 136 mmol/L 133-145 [facility] White blood cell (WBC) count Ordered By: Tab Dupont on 03-01-2025 WBC (Bld) [#/Vol] 7.6 10*3/uL 4.4-11.0 [facility] CBC panel Auto (Bld)on 02-22 Erythrocyte distribution width (RBC) [Ratio] 14.8 % Normal 11.5-15.0 [facility] Comment on above: Order Comment: Speci men Type: BLOOD SPECIMENOrdering Facility: [facility] Address: [address] [place] [address] Performed By: #### 5 8410-2 ####[facility]ORY[facility]IA [id number] [address] Hematocrit (Bld) [Volume fraction] 33.6 % Low 39.0-51.0 [facility] Comment on above: Order Comment: Speci men Type: BLOOD SPECIMENOrdering Facility: [facility] Address: [address] [place] [address] Performed By: #### 5 8410-2 ####[facility]ORYCLIA [id number] [address] STATES OF [facility] Hemoglobin (Bld) [Mass/Vol] 10.6 g/dL Low 13.0-17.0 [facility] Comment on above: Order Comment: Speci men Type: BLOOD SPECIMENOrdering Facility: [facility] Address: [address] [place] [address] Performed By: #### 5 8410-2 ####[facility]ORYCLIA [id number] [address] MCH (RBC) [Entitic mass] 30.0 pg Normal 26.0-34.0 [facility] Comment on above: Order Comment: Speci men Type: BLOOD SPECIMENOrdering Facility: [facility] Address: [address] [place] [address] Performed By: #### 5 8410-2 ####[facility]ORYCLIA [id number] [address] MCHC (RBC) [Mass/Vol] 31.5 g/dL Normal 30.5-36.0 [facility] Comment on above: Order Comment: Speci men Type: BLOOD SPECIMENOrdering Facility: [facility] Address: [address] [place] [address] Performed By: #### 5 8410-2 ####[facility]ORYCLIA [id number] [address] STATES OF [facility] MCV (RBC) [Entitic vol] 95.2 fL Normal 80.0-100.0 [facility] Comment on above: Order Comment: Speci men Type: BLOOD SPECIMENOrdering Facility: [facility] Address: [address] [place] [address] Performed By: #### 5 8410-2 ####[facility]ORYCLIA [id number] [address] STATES OF [facility] Nucleated RBC (Bld) [#/Vol] 10*3/uL Normal <0.01 [facility] Comment on above: Order Comment: Speci men Type: BLOOD SPECIMENOrdering Facility: [facility] Address: [address] [place] [address] Performed By: #### 5 8410-2 ####[facility]ORYCLIA [id number] [address] Platelet mean volume (Bld) [Entitic vol] 11.5 fL Normal 9.0-12.7 [facility] Comment on above: Order Comment: Speci men Type: BLOOD SPECIMENOrdering Facility: [facility] Address: [address] [place] [address] Performed By: #### 5 8410-2 ####[facility]ORYCLIA [id number] [address] OF [place] Platelets (Bld) [#/Vol] 153 10*3/uL Normal 150-400 [facility] Comment on above: Order Comment: Speci men Type: BLOOD SPECIMENOrdering Facility: [facility] Address: [address] [place] [address] Performed By: #### 5 8410-2 ####[facility]ATORYCLIA [id number] [place], [place] [id number] [place] [address] STATES [place] RBC (Bld) [#/Vol] 3.53 10*6/uL Low 4.20-6.00 [facility] Comment on above: Order Comment: Speci men Type: BLOOD SPECIMENOrdering Facility: [facility] Address: [address] [place] [address] Performed By: #### 5 8410-2 ####[facility]ORYCLIA [id number] [address] WBC (Bld) [#/Vol] 9.23 10*3/uL Normal 3.70-11.00 [facility] Comment on above: Order Comment: Speci men Type: BLOOD SPECIMENOrdering Facility: [facility] Address: [address] [place] [address] Performed By: #### 5 8410-2 ####[facility] [id number] [address] CNDSon 02-22-2025 [facility] HNO ID: [id number] Author: CHUY PADILLA DO Service: Hospital Medicine [...] 2024. The patient initially presented to the [facility] ED on February 16, 2025 after being found unresponsive at his SNF and was unable to protect his airway. Patient was intubated, started on Levophed and admitted to MICU for acute hypoxemic respiratory failure. CT showed hydronephrosis and culture was remarkable for gram-negative rods. patient was started on meropenem per Infectious disease recommendations. urology was consulted and recommended to follow-up with [facility]. patient was extubated on 02/17, and [...] No pending results Discharge Disposition Discharge Disposition: Long Term Facility - Less than 30 Days Activity [...] call for appointment?: Yes Gayle Scott MD [phone] [place] [facility] [address] PCP Requested Referral Additional Provider to Provider Information: Treatment Team: Attending Provider: Chuy Padilla DO Consulting: Charlie Williamson MD Primary Service: [facility] Problems Diagnosis POA Septic shock (HCC) Yes Proteus mirabilis infection Unknown Pressure injury of left buttock, unstageable (HCC) Unknown Gram negative septicemia (HCC) Unknown Bacteremia due to Enterococcus Unknown Fever, unspecified Unknown Leukocytosis Unknown Altered mental status Unknown Paraplegia (HCC) Unknown Proctocolitis Unknown Encounter for long-term (current) us (more content not included)... Normal [facility] Comprehensive metabolic 2000 panelon 02-22-2025 Albumin [Mass/Vol] 2.2 g/dL Low 3.9-4.9 [facility] Comment on above: Order Comment: Speci men Type: BLOOD SPECIMENOrdering Facility: [facility] Address: [address] [place] [address] Performed By: #### 2 4323-8 ####[facility]ATORYCLIA [id number] [address] STATES OF [facility] ALP [Catalytic activity/Vol] 89 U/L Normal 38-113 [facility] Comment on above: Order Comment: Speci men Type: BLOOD SPECIMENOrdering Facility: [facility] Address: [address] [place] [address] Performed By: #### 2 4323-8 ####[facility]ORATORYCLIA [id number] [place] [address] [place] ALT With P-5'-P [Catalytic activity/Vol] 12 U/L Normal 10-54 [facility] Comment on above: Order Comment: Speci men Type: BLOOD SPECIMENOrdering Facility: [facility] Address: [address] [place] [address] Performed By: #### 2 4323-8 ####[facility]ORATORYCLIA [id number] [place] [address] [place] [facility] Anion gap [Moles/Vol] 8 mmol/L Normal 8-15 [facility] Comment on above: Order Comment: Speci men Type: BLOOD SPECIMENOrdering Facility: [facility] Address: [address] [place] [address] Performed By: #### 2 4323-8 ####[facility]ATORYCLIA [id number] [place] [address] [place] AST With P-5'-P [Catalytic activity/Vol] 13 U/L Low 14-40 [facility] Comment on above: Order Comment: Speci men Type: BLOOD SPECIMENOrdering Facility: [facility] Address: [address] [place] [address] Performed By: #### 2 4323-8 ####[facility]ATORYCLIA [id number] [place] [address] [place] Bilirubin [Mass/Vol] 0.4 mg/dL Normal 0.2-1.3 [facility] Comment on above: Order Comment: Speci men Type: BLOOD SPECIMENOrdering Facility: [facility] Address: [address] [place] [address] Performed By: #### 2 4323-8 ####[facility] LABORATORYCLIA [id number] [place] [address] [place] Calcium [Mass/Vol] 7.7 mg/dL Low 8.5-10.2 [facility] Comment on above: Order Comment: Speci men Type: BLOOD SPECIMENOrdering Facility: [facility] Address: [address] [place] [address] Performed By: #### 2 4323-8 ####[facility]ORATORYCLIA [id number] [place] [address] [place] Chloride [Moles/Vol] 108 mmol/L High 98-107 [facility] Comment on above: Order Comment: Speci men Type: BLOOD SPECIMENOrdering Facility: [facility] Address: [address] [place] [address] Performed By: #### 2 4323-8 ####[facility]ATORYCLIA [id number] [address] STATES OF [place] CO2 [Moles/Vol] 23 mmol/L Normal 22-30 [facility] Comment on above: Order Comment: Speci men Type: BLOOD SPECIMENOrdering Facility: [facility] Address: [address] [place] [address] Performed By: #### 2 4323-8 ####[facility]ATORYCLIA [id number] [address] STATES [place] Creatinine [Mass/Vol] 0.60 mg/dL Low 0.73-1.22 [facility] Comment on above: Order Comment: Speci men Type: BLOOD SPECIMENOrdering Facility: [facility] Address: [address] [place] [address] Performed By: #### 2 4323-8 ####[facility]ATORYCLIA [id number] [address] Creatinine and Glomerular filtration rate.predicted panel (S/P/Bld) 108 mL/min/1.73m??? Normal >=60 [facility] Comment on above: Order Comment: Speci men Type: BLOOD SPECIMENOrdering Facility: [facility] Address: [address] [place] [address] Result Comment: Leena mated Glomerular Filtration Rate [...] actual GFR. Performed By: #### 2 4323-8 ####[facility]ORATORYCLIA [id number] [place] [address] [place] Glucose [Mass/Vol] 144 mg/dL High 74-99 [facility] Comment on above: Order Comment: Jg men Type: BLOOD SPECIMENOrdering Facility: [facility] Address: [address] [place] [address] Result Comment: The [place] [employer] (ADA) provides guidance for cutoff [...] Standards of Medical Care in Diabetes 2016, [place] [employer]. Diabetes Care. 2016.39(Suppl 1). Performed By: #### 2 4323-8 ####[facility]ORATORYCLIA [id number] [place] [address] [place] Potassium [Moles/Vol] 3.9 mmol/L Normal 3.7-5.1 [facility] Comment on above: Order Comment: Jg valdez Type: BLOOD SPECIMENOrdering Facility: [facility] Address: [address] [place] [address] Performed By: #### 2 4323-8 ####[facility]ATORYCLIA [id number] [place] [address] [place] Protein [Mass/Vol] 5.7 g/dL Low 6.3-8.0 [facility] Comment on above: Order Comment: [place] men Type: BLOOD SPECIMENOrdering Facility: [facility] Address: [address] [place] [address] Performed By: #### 2 4323-8 ####[facility]ORATORYCLIA [id number] [place] [address] [place] Sodium [Moles/Vol] 139 mmol/L Normal 136-144 [facility] Comment on above: Order Comment: Speci men Type: BLOOD SPECIMENOrdering Facility: [facility] Address: [address] [place] [id number] Performed By: #### 2 4323-8 ####[facility]ORATORYCLIA [id number] [place] [id number] [place] Urea nitrogen [Mass/Vol] 14 mg/dL Normal 9-24 [facility] Comment on above: Order Comment: Speci men Type: BLOOD SPECIMENOrdering Facility: [facility] Address: [address] [place] [id number] Performed By: #### 2 4323-8 ####[facility]ORATORYCLIA [id number] [place] [id number] [facility] [place] NURSING PROGon 02-22-2025 NURSING PROG HNO ID: [id number] Author: NAHUN GUNDERSON RN Service: Nursing Author Type: Registered Nurse Type: Nursing Progress Note Filed: 02/22/2025 19:58 Note Text: Call to ALEXANDRA Adams at [facility] for report. Follow up appts AND new medications reviewed. Normal [facility] THERAPY NTon 02-22-2025 THERAPY NT HNO ID: [id number] Author: VICTORIANO BACA OTR/L Service: Occupational Therapy Author Type: Occupational Therapist Type: Therapy (PT/OT/Speech/Resp) Filed: 02/22/2025 15:00 Note Text: Occupational Therapy Evaluation Summary SERVICE DATE: 02/22/2025 SERVICE TIME: 1345 to 1403 ROOM: [place] [address] OT 6 Clicks Score: 16 DISCHARGE RECOMMENDATIONS [...] shock was managed in ICU; transferred to [facility] 02/20 Relevant Past Medical History: back injury and surgery in the past--then found to have epidural abscess--had another back sx in 2021--harware needed removed in January 2022 and then was paraplegic; has had issues with UTIs HOME LIVING Patient Lives With: Facility Care ([facility]) Assistance Available: 24-Hour Tub/Shower Type: sponge [...] Time (minutes): 18 $ Evaluation - Low (15322) Billed Units: 1 unit TRAINING AND EDUCATION [...] February 22, 2025 TIME: 2:58 PM Normal [facility] THERAPY NT HNO ID: [id number] Author: FABRICIO GREENBERG PT Service: Physical Therapy Author Type: Physical Therapist Type: Therapy (PT/OT/Speech/Resp) Filed: 02/22/2025 11:54 Note Text: Physical Therapy Evaluation Summary SERVICE DATE: 02/22/2025 SERVICE TIME: 1120 to 1135 ROOM: [place] [address] PT 6 Clicks Score: 7 DISCHARGE RECOMMENDATIONS ECF ASSESSMENT Response to Therapy Interventions: Multiple Ongoing Medical Issues pt tolerated bilat LE PROM--no c/o pain; able to complete roll with assist from PT with drawhseet PRECAUTIONS Fall Risk, Lines/Tubes/Drains CURRENT HOSPITAL COURSE presented to ED after being found unresponsive--septic shock was managed in ICU; transferred to [facility] 02/20 Relevant Past Medical History: back injury and surgery in the past--then found to have epidural abscess--had another back sx in 2021--harware needed removed in January 2022 and then was paraplegic; has had issues with UTIs HOME LIVING Patient Lives With: Facility Care ([facility]) Assistance Available: 24-Hour Equipment Owned: Wheelchair- [...] Skilled Treatment Time (minutes): 15 $ Evaluation-Moderate (95787) Billed Units: 1 unit Completed PROM bilat [...] LOC) Treatment Interventions: Joint Mobility SIGNATURE: Fabricio Greenberg PT PATIENT NAME: Anmol Given DATE: February 22, 2025 TIME: 11:53 AM Normal [facility] CBC panel Auto (Bld)on 02-21 Erythrocyte distribution width (RBC) [Ratio] 14.9 % Normal 11.5-15.0 [facility] Comment on above: Order Comment: Speci men Type: BLOOD SPECIMENOrdering Facility: [facility] Address: [address] [place] [address] Performed By: #### 5 8410-2 ####[facility] LABORATORYCLIA [id number] [address] Hematocrit (Bld) [Volume fraction] 38.6 % Low 39.0-51.0 [facility] Comment on above: Order Comment: Speci men Type: BLOOD SPECIMENOrdering Facility: [facility] Address: [address] [place] [address] Performed By: #### 5 8410-2 ####[facility] LABORATORYCLIA [id number] [address] [place] Hemoglobin (Bld) [Mass/Vol] 12.3 g/dL Low 13.0-17.0 [facility] Comment on above: Order Comment: Speci men Type: BLOOD SPECIMENOrdering Facility: [facility] Address: [address] [place] [address] Performed By: #### 5 8410-2 ####[facility]ORATORYCLIA [id number] [address] [place] MCH (RBC) [Entitic mass] 29.9 pg Normal 26.0-34.0 [facility] Comment on above: Order Comment: Speci men Type: BLOOD SPECIMENOrdering Facility: [facility] Address: [address] [place] [address] Performed By: #### 5 8410-2 ####[facility]ORATORYCLIA [id number] [address] [place] MCHC (RBC) [Mass/Vol] 31.9 g/dL Normal 30.5-36.0 [facility] Comment on above: Order Comment: Speci men Type: BLOOD SPECIMENOrdering Facility: [facility] Address: [address] [place] [address] Performed By: #### 5 8410-2 ####[facility]ORATORYCLIA [id number] [address] OF [facility] MCV (RBC) [Entitic vol] 93.7 fL Normal 80.0-100.0 [facility] Comment on above: Order Comment: Speci men Type: BLOOD SPECIMENOrdering Facility: [facility] Address: [address] [place] [address] Performed By: #### 5 8410-2 ####[facility]ORATORYCLIA [id number] [address] OF [facility] Nucleated RBC (Bld) [#/Vol] 10*3/uL Normal <0.01 [facility] Comment on above: Order Comment: Speci men Type: BLOOD SPECIMENOrdering Facility: [facility] Address: [address] [place] [address] Performed By: #### 5 8410-2 ####[facility]ATORYCLIA [id number] [address] Platelet mean volume (Bld) [Entitic vol] 11.7 fL Normal 9.0-12.7 [facility] Comment on above: Order Comment: Speci men Type: BLOOD SPECIMENOrdering Facility: [facility] Address: [address] [place] [address] Performed By: #### 5 8410-2 ####[facility]ATORYCLIA [id number] [address] Platelets (Bld) [#/Vol] 134 10*3/uL Low 150-400 [facility] Comment on above: Order Comment: Speci men Type: BLOOD SPECIMENOrdering Facility: [facility] Address: [address] [place] [address] Result Comment: No c lot detected. Performed By: #### 5 8410-2 ####[facility]ATORYCLIA [id number] [address] STATES OF [facility] RBC (Bld) [#/Vol] 4.12 10*6/uL Low 4.20-6.00 [facility] Comment on above: Order Comment: Specliliana valdez Type: BLOOD SPECIMENOrdering Facility: [facility] Address: [address] [place] [address] Performed By: #### 5 8410-2 ####[facility]ATORYCLIA [id number] [address] OF [facility] WBC (Bld) [#/Vol] 9.99 10*3/uL Normal 3.70-11.00 [facility] Comment on above: Order Comment: Speci men Type: BLOOD SPECIMENOrdering Facility: [facility] Address: [address] [place] [address] Performed By: #### 5 8410-2 ####[facility]ATORYCLIA [id number] [address] CONSULT PROGon 02-21-2025 CONSULT PROG HNO ID: [id number] Author: ERIKA TEE APRN.DEMURRAGE AGENT Service: Infectious Disease Author Type: Nurse Practitioner [...] AG 02/16/2025 after being found unresponsive at [facility]. Urine and blood cultures with growth of [...] Airways Line Duration Peripheral 02/16/251922 [facility] Short Left Antecubital 18 Gauge 4 days Drain Duration Indwelling Urinary Catheter 02/16/252125 [facility] Coude 20 Fr 4 days Physical [...] 09/04/2021 7.18 (more content not included)... Normal [facility] Comprehensive metabolic 2000 panelon 02-21-2025 Albumin [Mass/Vol] 2.5 g/dL Low 3.9-4.9 [facility] Comment on above: Order Comment: Speci men Type: BLOOD SPECIMENOrdering Facility: [facility] Address: [address] [place] [address] Performed By: #### 2 4323-8 ####[facility]ORATORYCLIA [id number] [address] STATES OF [facility] ALP [Catalytic activity/Vol] 121 U/L High 38-113 [facility] Comment on above: Order Comment: Speci men Type: BLOOD SPECIMENOrdering Facility: [facility] Address: [address] [place] [address] Performed By: #### 2 4323-8 ####[facility]ORATORYCLIA [id number] [address] [place] ALT With P-5'-P [Catalytic activity/Vol] 15 U/L Normal 10-54 [facility] Comment on above: Order Comment: Speci men Type: BLOOD SPECIMENOrdering Facility: [facility] Address: [address] [place] [address] Performed By: #### 2 4323-8 ####[facility]ORATORYCLIA [id number] [place] [address] [place] Anion gap [Moles/Vol] 9 mmol/L Normal 8-15 [facility] Comment on above: Order Comment: Speci men Type: BLOOD SPECIMENOrdering Facility: [facility] Address: [address] [place] [address] Performed By: #### 2 4323-8 ####[facility]ATORYCLIA [id number] [place] [address] [place] AST With P-5'-P [Catalytic activity/Vol] 23 U/L Normal 14-40 [facility] Comment on above: Order Comment: Speci men Type: BLOOD SPECIMENOrdering Facility: [facility] Address: [address] [place] [address] Performed By: #### 2 4323-8 ####[facility]ATORYCLIA [id number] [place] [address] [place] Bilirubin [Mass/Vol] 0.8 mg/dL Normal 0.2-1.3 [facility] Comment on above: Order Comment: Speci men Type: BLOOD SPECIMENOrdering Facility: [facility] Address: [address] [place] [address] Performed By: #### 2 4323-8 ####[facility]ORATORYCLIA [id number] [place] [address] [place] Calcium [Mass/Vol] 8.2 mg/dL Low 8.5-10.2 [facility] Comment on above: Order Comment: Speci men Type: BLOOD SPECIMENOrdering Facility: [facility] Address: [address] [place] [address] Performed By: #### 2 4323-8 ####[facility]ORATORYCLIA [id number] [place] [address] [place] Chloride [Moles/Vol] 105 mmol/L Normal 98-107 [facility] Comment on above: Order Comment: Speci men Type: BLOOD SPECIMENOrdering Facility: [facility] Address: [address] [place] [address] Performed By: #### 2 4323-8 ####[facility]ITALCLIA [id number] [place] [address] [place] CO2 [Moles/Vol] 21 mmol/L Low 22-30 [facility] Comment on above: Order Comment: Speci men Type: BLOOD SPECIMENOrdering Facility: [facility] Address: [address] [place] [address] Performed By: #### 2 4323-8 ####[facility]PITALCLIA [id number] [place] [address] [place] Creatinine [Mass/Vol] 0.58 mg/dL Low 0.73-1.22 [facility] Comment on above: Order Comment: Speci men Type: BLOOD SPECIMENOrdering Facility: [facility] Address: [address] [place] [address] Performed By: #### 2 4323-8 ####[facility]ITALCLIA [id number] [address] Creatinine and Glomerular filtration rate.predicted panel (S/P/Bld) 110 mL/min/1.73m??? Normal >=60 [facility] Comment on above: Order Comment: Speci men Type: BLOOD SPECIMENOrdering Facility: [facility] Address: [address] [place] [address] Result Comment: Leena mated Glomerular Filtration Rate [...] actual GFR. Performed By: #### 2 4323-8 ####[facility]ORATORYCLIA [id number] [address] STATES OF [facility] Glucose [Mass/Vol] 162 mg/dL High 74-99 [facility] Comment on above: Order Comment: Speci men Type: BLOOD SPECIMENOrdering Facility: [facility] Address: [address] [place] [address] Result Comment: The [place] Diabetes Association (ADA) provides guidance for cutoff [...] Standards of Medical Care in Diabetes 2016, [place] [employer]. Diabetes Care. 2016.39(Suppl 1). Performed By: #### 2 4323-8 ####[facility]ORATORYCLIA [id number] [place] [address] [place] Potassium [Moles/Vol] 4.1 mmol/L Normal 3.7-5.1 [facility] Comment on above: Order Comment: Jg courtney Type: BLOOD SPECIMENOrdering Facility: [facility] Address: [address] [place] [address] Performed By: #### 2 4323-8 ####[facility]ATORYCLIA [id number] [place] [address] [place] Protein [Mass/Vol] 6.6 g/dL Normal 6.3-8.0 [facility] Comment on above: Order Comment: Speci men Type: BLOOD SPECIMENOrdering Facility: [facility] Address: [address] [place], [place] [address] Performed By: #### 2 4323-8 ####[facility]ORATORYCLIA [id number] [place] [address] [place] Sodium [Moles/Vol] 135 mmol/L Low 136-144 [facility] Comment on above: Order Comment: Speci men Type: BLOOD SPECIMENOrdering Facility: [facility] Address: [address] [place] [address] Performed By: #### 2 4323-8 ####[facility]ORATORYCLIA [id number] [address] STATES [facility] Urea nitrogen [Mass/Vol] 21 mg/dL Normal 9-24 [facility] Comment on above: Order Comment: Speci men Type: BLOOD SPECIMENOrdering Facility: [facility] Address: [address] [place] [address] Performed By: #### 2 4323-8 ####[facility]ATORYCLIA [id number] [address] Comprehensive metabolic 2000 panelon 02-20-2025 Albumin [Mass/Vol] 2.3 g/dL Low 3.9-4.9 [facility] Comment on above: Order Comment: Speci men Type: BLOOD SPECIMENOrdering Facility: [facility] Address: [address] [place] [address] Performed By: #### 2 4323-8 ####[facility]ATORYCLIA [id number] [address] OF [facility] ALP [Catalytic activity/Vol] 107 U/L Normal 38-113 [facility] Comment on above: Order Comment: Speci men Type: BLOOD SPECIMENOrdering Facility: [facility] Address: [address] [place] [address] Performed By: #### 2 4323-8 ####[facility]ATORYCLIA [id number] [address] ALT With P-5'-P [Catalytic activity/Vol] 17 U/L Normal 10-54 [facility] Comment on above: Order Comment: Speci men Type: BLOOD SPECIMENOrdering Facility: [facility] Address: [address] [place] [address] Performed By: #### 2 4323-8 ####[facility]ATORYCLIA [id number] [address] OF [facility] Anion gap [Moles/Vol] 8 mmol/L Normal 8-15 [facility] Comment on above: Order Comment: Speci men Type: BLOOD SPECIMENOrdering Facility: [facility] Address: [address] [place] [address] Performed By: #### 2 4323-8 ####[facility]ORATORYCLIA [id number] [place] [address] [place] AST With P-5'-P [Catalytic activity/Vol] 22 U/L Normal 14-40 [facility] Comment on above: Order Comment: Speci men Type: BLOOD SPECIMENOrdering Facility: [facility] Address: [address] [place] [address] Performed By: #### 2 4323-8 ####[facility]ATORYCLIA [id number] [place] [address] [place] Bilirubin [Mass/Vol] 0.8 mg/dL Normal 0.2-1.3 [facility] Comment on above: Order Comment: Speci men Type: BLOOD SPECIMENOrdering Facility: [facility] Address: [address] [place] [address] Performed By: #### 2 4323-8 ####[facility]ATORYCLIA [id number] [place] [address] [place] Calcium [Mass/Vol] 7.7 mg/dL Low 8.5-10.2 [facility] Comment on above: Order Comment: Speci men Type: BLOOD SPECIMENOrdering Facility: [facility] Address: [address] [place] [address] Performed By: #### 2 4323-8 ####[facility]ORATORYCLIA [id number] [place] [address] [place] Chloride [Moles/Vol] 110 mmol/L High 98-107 [facility] Comment on above: Order Comment: Speci men Type: BLOOD SPECIMENOrdering Facility: [facility] Address: [address] [place] [address] Performed By: #### 2 4323-8 ####[facility]ORATORYCLIA [id number] [address] [place] CO2 [Moles/Vol] 23 mmol/L Normal 22-30 [facility] Comment on above: Order Comment: Speci men Type: BLOOD SPECIMENOrdering Facility: [facility] Address: [address] [place] [address] Performed By: #### 2 4323-8 ####[facility]ATORYCLIA [id number] [address] [place] Creatinine [Mass/Vol] 0.60 mg/dL Low 0.73-1.22 [facility] Comment on above: Order Comment: Speci men Type: BLOOD SPECIMENOrdering Facility: [facility] Address: [address] [place] [address] Performed By: #### 2 4323-8 ####[facility]ATORYCLIA [id number] [address] Creatinine and Glomerular filtration rate.predicted panel (S/P/Bld) 108 mL/min/1.73m??? Normal >=60 [facility] Comment on above: Order Comment: Speci men Type: BLOOD SPECIMENOrdering Facility: [facility] Address: [address] [place] [address] Result Comment: Leena mated Glomerular Filtration Rate [...] actual GFR. Performed By: #### 2 4323-8 ####[facility]ORATORYCLIA [id number] [address] STATES OF [facility] Glucose [Mass/Vol] 90 mg/dL Normal 74-99 [facility] Comment on above: Order Comment: Jg valdez Type: BLOOD SPECIMENOrdering Facility: [facility] Address: [address] [place] [address] Result Comment: The [place] Diabetes Association (ADA) provides guidance for cutoff [...] Standards of Medical Care in Diabetes 2016, [place] [employer]. Diabetes Care. 2016.39(Suppl 1). Performed By: #### 2 4323-8 ####[facility]ORATORYCLIA [id number] [place] [address] [place] Potassium [Moles/Vol] 4.1 mmol/L Normal 3.7-5.1 [facility] Comment on above: Order Comment: Speci men Type: BLOOD SPECIMENOrdering Facility: [facility] Address: [address] [place] [address] Performed By: #### 2 4323-8 ####[facility]ATORYCLIA [id number] [place] [address] [place] Protein [Mass/Vol] 5.7 g/dL Low 6.3-8.0 [facility] Comment on above: Order Comment: Jg valdez Type: BLOOD SPECIMENOrdering Facility: [facility] Address: [address] [place] [address] Performed By: #### 2 4323-8 ####[facility]ATORYCLIA [id number] [place] [address] [place] Sodium [Moles/Vol] 141 mmol/L Normal 136-144 [facility] Comment on above: Order Comment: Jg valdez Type: BLOOD SPECIMENOrdering Facility: [facility] Address: [address] [place] [address] Performed By: #### 2 4323-8 ####[facility]ATORYCLIA [id number] [place] [address] [place] Urea nitrogen [Mass/Vol] 25 mg/dL High 9-24 [facility] Comment on above: Order Comment: Speci men Type: BLOOD SPECIMENOrdering Facility: [facility] Address: [address] [place] [address] Performed By: #### 2 4323-8 ####[facility]ATORYCLIA [id number] [address] STATES OF [facility] CBC panel Auto (Bld)on 02-19 Erythrocyte distribution width (RBC) [Ratio] 14.8 % Normal 11.5-15.0 [facility] Comment on above: Order Comment: Speci men Type: BLOOD SPECIMENOrdering Facility: [facility] Address: [address] [place] [address] Performed By: #### 5 8410-2 ####[facility]ATORYCLIA [id number] [address] STATES OF [facility] Hematocrit (Bld) [Volume fraction] 32.5 % Low 39.0-51.0 [facility] Comment on above: Order Comment: Speci men Type: BLOOD SPECIMENOrdering Facility: [facility] Address: [address] [place] [address] Performed By: #### 5 8410-2 ####[facility]ATORYCLIA [id number] [address] Hemoglobin (Bld) [Mass/Vol] 11.1 g/dL Low 13.0-17.0 [facility] Comment on above: Order Comment: Speci men Type: BLOOD SPECIMENOrdering Facility: [facility] Address: [address] [place] [address] Performed By: #### 5 8410-2 ####[facility]ATORYCLIA [id number] [address] [place] MCH (RBC) [Entitic mass] 30.5 pg Normal 26.0-34.0 [facility] Comment on above: Order Comment: Speci men Type: BLOOD SPECIMENOrdering Facility: [facility] Address: [address] [place] [address] Performed By: #### 5 8410-2 ####[facility]ATORYCLIA [id number] [address] [place] MCHC (RBC) [Mass/Vol] 34.2 g/dL Normal 30.5-36.0 [facility] Comment on above: Order Comment: Speci men Type: BLOOD SPECIMENOrdering Facility: [facility] Address: [address] [place] [address] Performed By: #### 5 8410-2 ####[facility]ATORYCLIA [id number] [address] [place] MCV (RBC) [Entitic vol] 89.3 fL Normal 80.0-100.0 [facility] Comment on above: Order Comment: Speci men Type: BLOOD SPECIMENOrdering Facility: [facility] Address: [address] [place] [address] Performed By: #### 5 8410-2 ####[facility]ATORYCLIA [id number] [address] OF [facility] Nucleated RBC (Bld) [#/Vol] 10*3/uL Normal <0.01 [facility] Comment on above: Order Comment: Speci men Type: BLOOD SPECIMENOrdering Facility: [facility] Address: [address] [place] [address] Performed By: #### 5 8410-2 ####[facility]ATORYCLIA [id number] [address] [place] Platelet mean volume (Bld) [Entitic vol] 11.8 fL Normal 9.0-12.7 [facility] Comment on above: Order Comment: Speci men Type: BLOOD SPECIMENOrdering Facility: [facility] Address: [address] [place] [address] Performed By: #### 5 8410-2 ####[facility]ATORYCLIA [id number] [address] OF [place] Platelets (Bld) [#/Vol] 87 10*3/uL Low 150-400 [facility] Comment on above: Order Comment: Speci men Type: BLOOD SPECIMENOrdering Facility: [facility] Address: [address] [place] [address] Result Comment: No c lot detected. Performed By: #### 5 8410-2 ####[facility]ATORYCLIA [id number] [address] OF [facility] RBC (Bld) [#/Vol] 3.64 10*6/uL Low 4.20-6.00 [facility] Comment on above: Order Comment: Speci men Type: BLOOD SPECIMENOrdering Facility: [facility] Address: [address] [place] [address] Performed By: #### 5 8410-2 ####[facility]ATORYCLIA [id number] [address] OF [facility] WBC (Bld) [#/Vol] 9.94 10*3/uL Normal 3.70-11.00 [facility] Comment on above: Order Comment: Speci men Type: BLOOD SPECIMENOrdering Facility: [facility] Address: [address] [place] [address] Performed By: #### 5 8410-2 ####[facility]ATORYCLIA [id number] [address] [facility] [facility] ANMOL REYNOLDS ([id number]) 1960 M Date Time Provider Department 02/19/25 ANMOL HERBERT During your visit today, we recorded the following information about you: Anmol Hebrert MD 02/19/2025 2:58 PM Signed Needs outpt cysto, pyelograms, bilateral stent change vs removal in 2-3 weeks. Comfort Sotelo 03/08/2025 10:16 AM Signed Patient is scheduled and longterm was notified. Information was faxed. Comfort Sotelo Allergies As of Date: 02/19/2025 (No Known Allergies) Date Reviewed: 02/19/2025 Reviewed by: Bleinda Orona RN - Fully Assessed Reason for [...] Comments as of 02/17/2025: Verified medications with [facility] 02/17/2025 Problem List As Of Date 02/19/2025 Noted Resolved NO SHOW [025352] 08/31/2013 05/29/2020 Perineal abscess [L02.215] 06/13/2019 05/29/2020 [...] status [R41.82 (more content not included)... Normal [facility] Calcium.ionized [Moles/Vol]o n 02-19-2025 Calcium.ionized (BldV) [Mass/Vol] 1.03 mmol/L Low 1.08-1.30 [facility] Comment on above: Order Comment: Speci men Type: BLOOD SPECIMENOrdering Facility: [facility] Address: [address] [place], [place] [address] [address] Performed By: #### 1 995-0 ####[facility]ORATORYCLIA [id number] [place] [address] [place] Calcium.ionized adjusted to pH 7.4 (Bld) [Moles/Vol] 1.05 mmol/L Low 1.08-1.30 [facility] Comment on above: Order Comment: Speci men Type: BLOOD SPECIMENOrdering Facility: [facility] Address: [address] [place] [address] Performed By: #### 1 995-0 ####[facility]ATORYCLIA [id number] [address] Comprehensive metabolic 2000 panelon 02-19-2025 Albumin [Mass/Vol] 2.3 g/dL Low 3.9-4.9 [facility] Comment on above: Order Comment: Speci men Type: BLOOD SPECIMENOrdering Facility: [facility] Address: [address] [place] [address] Performed By: #### 2 4323-8 ####[facility] LABORATORYCLIA [id number] [address] [place] [Catalytic activity/Vol] 112 U/L Normal 38-113 [facility] Comment on above: Order Comment: Speci men Type: BLOOD SPECIMENOrdering Facility: [facility] Address: [address] [place] [address] Performed By: #### 2 4323-8 ####[facility] LABORATORYCLIA [id number] [address] ALT With P-5'-P [Catalytic activity/Vol] 21 U/L Normal 10-54 [facility] Comment on above: Order Comment: Speci men Type: BLOOD SPECIMENOrdering Facility: [facility] Address: [address] [place] [address] Performed By: #### 2 4323-8 ####[facility]ATORYCLIA [id number] [address] Anion gap [Moles/Vol] 10 mmol/L Normal 8-15 [facility] Comment on above: Order Comment: Speci men Type: BLOOD SPECIMENOrdering Facility: [facility] Address: [address] [place] [address] Performed By: #### 2 4323-8 ####[facility]ORATORYCLIA [id number] [place] [address] [place] AST With P-5'-P [Catalytic activity/Vol] 25 U/L Normal 14-40 [facility] Comment on above: Order Comment: Speci men Type: BLOOD SPECIMENOrdering Facility: [facility] Address: [address] [place] [address] Performed By: #### 2 4323-8 ####[facility]ORATORYCLIA [id number] [place] [address] [place] Bilirubin [Mass/Vol] 0.5 mg/dL Normal 0.2-1.3 [facility] Comment on above: Order Comment: Speci men Type: BLOOD SPECIMENOrdering Facility: [facility] Address: [address] [place] [address] Performed By: #### 2 4323-8 ####[facility]ORATORYCLIA [id number] [address] [place] Calcium [Mass/Vol] 7.8 mg/dL Low 8.5-10.2 [facility] Comment on above: Order Comment: Speci men Type: BLOOD SPECIMENOrdering Facility: [facility] Address: [address] [place] [address] Performed By: #### 2 4323-8 ####[facility]ORATORYCLIA [id number] [place] [address] [place] Chloride [Moles/Vol] 106 mmol/L Normal 98-107 [facility] Comment on above: Order Comment: Speci men Type: BLOOD SPECIMENOrdering Facility: [facility] Address: [address] [place] [address] Performed By: #### 2 4323-8 ####[facility]ORATORYCLIA [id number] [place] [address] [place] CO2 [Moles/Vol] 21 mmol/L Low 22-30 [facility] Comment on above: Order Comment: Speci men Type: BLOOD SPECIMENOrdering Facility: [facility] Address: [address] [place] [address] Performed By: #### 2 4323-8 ####[facility]ORATORYCLIA [id number] [place] [id number] [place] [facility] Creatinine [Mass/Vol] 0.64 mg/dL Low 0.73-1.22 [facility] Comment on above: Order Comment: [facility] Type: BLOOD SPECIMENOrdering Facility: [facility] Address: [address] [place] [address] Performed By: #### 2 4323-8 ####[facility]ORATORYCLIA [id number] [address] Creatinine and Glomerular filtration rate.predicted panel (S/P/Bld) 106 mL/min/1.73m??? Normal >=60 [facility] Comment on above: Order Comment: [facility] Type: BLOOD SPECIMENOrdering Facility: [facility] Address: [address] [place] [address] Result Comment: Leena mated Glomerular Filtration Rate [...] actual GFR. Performed By: #### 2 4323-8 ####[facility]ORATORYCLIA [id number] [address] [place] Glucose [Mass/Vol] 115 mg/dL High 74-99 [facility] Comment on above: Order Comment: [facility] Type: BLOOD SPECIMENOrdering Facility: [facility] Address: [address] [place] [address] Result Comment: The [place] Diabetes [employer] (ADA) provides guidance for cutoff [...] Standards of Medical Care in Diabetes 2016, [place] [employer]. Diabetes Care. 2016.39(Suppl 1). Performed By: #### 2 4323-8 ####[facility]ORATORYCLIA [id number] [place] [address] [place] Potassium [Moles/Vol] 3.7 mmol/L Normal 3.7-5.1 [facility] Comment on above: Order Comment: Speci men Type: BLOOD SPECIMENOrdering Facility: [facility] Address: [address] [place] [address] Performed By: #### 2 4323-8 ####[facility]ATORYCLIA [id number] [place] [address] [place] Protein [Mass/Vol] 5.5 g/dL Low 6.3-8.0 [facility] Comment on above: Order Comment: Speci men Type: BLOOD SPECIMENOrdering Facility: [facility] Address: [address] [place] [address] Performed By: #### 2 4323-8 ####[facility]ATORYCLIA [id number] [place] [address] [place] Sodium [Moles/Vol] 137 mmol/L Normal 136-144 [facility] Comment on above: Order Comment: Speci men Type: BLOOD SPECIMENOrdering Facility: [facility] Address: [address] [place] [address] Performed By: #### 2 4323-8 ####[facility]ORATORYCLIA [id number] [place] [address] [place] Urea nitrogen [Mass/Vol] 36 mg/dL High 9-24 [facility] Comment on above: Order Comment: [place] Type: BLOOD SPECIMENOrdering Facility: [facility] Address: [address] [place] [address] Performed By: #### 2 4323-8 ####[facility] [id number] [place] [address] [place] Urine Cultureon 02-19-2025 URC 412-25 Citrobacter freundii [place] Count 80,000-100,000 Providencia stuartii Providencia stuartii PMIR [place] Count >100,000 Proteus mirabilis [place] Count 25,000-50,000 Citrobacter freundii: REACTION Enterococcus faecalis [...] R Vancomycin Islt HARINDER 1 S Normal [facility] Comment on above: Performed By: #### L 501.7250, L101.9943, L501.8835 #### [facility] [address] [place], [address] aPTT PPPon 02-19-2025 aPTT Coag (PPP) [Time] 68.5 s High 23.0-32.4 [facility] Comment on above: Order Comment: Speci men Type: BLOOD SPECIMENOrdering Facility: [facility] Address: [address] [place] [address] Performed By: #### 1 4979-9 ####[facility]ITALCLIA [id number] [address] [place] aPTT Coag (PPP) [Time] 71.1 s High 23.0-32.4 [facility] Comment on above: Order Comment: Speci men Type: BLOOD SPECIMENOrdering Facility: [facility] Address: [address] [place] [address] Performed By: #### 1 4979-9 ####[facility]PITALCLIA [id number] [address] OF [facility] CBC panel Auto (Bld)on 02-18 Erythrocyte distribution width (RBC) [Ratio] 14.9 % Normal 11.5-15.0 [facility] Comment on above: Order Comment: Speci men Type: BLOOD SPECIMENOrdering Facility: [facility] Address: [address] [place] [address] Performed By: #### 5 8410-2 ####[facility]PITALCLIA [id number] [address] STATES OF [facility] Hematocrit (Bld) [Volume fraction] 33.9 % Low 39.0-51.0 [facility] Comment on above: Order Comment: Speci men Type: BLOOD SPECIMENOrdering Facility: [facility] Address: [address] [place] [address] Performed By: #### 5 8410-2 ####[facility]ORATORYCLIA [id number] [address] Hemoglobin (Bld) [Mass/Vol] 11.3 g/dL Low 13.0-17.0 [facility] Comment on above: Order Comment: Speci men Type: BLOOD SPECIMENOrdering Facility: [facility] Address: [address] [place] [address] Performed By: #### 5 8410-2 ####[facility]ORATORYCLIA [id number] [address] MCH (RBC) [Entitic mass] 30.3 pg Normal 26.0-34.0 [facility] Comment on above: Order Comment: Speci men Type: BLOOD SPECIMENOrdering Facility: [facility] Address: [address] [place] [address] Performed By: #### 5 8410-2 ####[facility]ORATORYCLIA [id number] [address] MCHC (RBC) [Mass/Vol] 33.3 g/dL Normal 30.5-36.0 [facility] Comment on above: Order Comment: Speci men Type: BLOOD SPECIMENOrdering Facility: [facility] Address: [address] [place] [address] Performed By: #### 5 8410-2 ####[facility]ORATORYCLIA [id number] [address] MCV (RBC) [Entitic vol] 90.9 fL Normal 80.0-100.0 [facility] Comment on above: Order Comment: Speci men Type: BLOOD SPECIMENOrdering Facility: [facility] Address: [address] [place] [address] Performed By: #### 5 8410-2 ####[facility]ATORYCLIA [id number] [address] Nucleated RBC (Bld) [#/Vol] 10*3/uL Normal <0.01 [facility] Comment on above: Order Comment: Speci men Type: BLOOD SPECIMENOrdering Facility: [facility] Address: [address] [place] [address] Performed By: #### 5 8410-2 ####[facility]ORATORYCLIA [id number] [address] OF [place] Platelet mean volume (Bld) [Entitic vol] 11.9 fL Normal 9.0-12.7 [facility] Comment on above: Order Comment: Speci men Type: BLOOD SPECIMENOrdering Facility: [facility] Address: [address] [place] [address] Performed By: #### 5 8410-2 ####[facility]ATORYCLIA [id number] [address] [place] Platelets (Bld) [#/Vol] 69 10*3/uL Low 150-400 [facility] Comment on above: Order Comment: Speci men Type: BLOOD SPECIMENOrdering Facility: [facility] Address: [address] [place] [address] Result Comment: No c lot detected. Performed By: #### 5 8410-2 ####[facility]ATORYCLIA [id number] [address] STATES OF [facility] RBC (Bld) [#/Vol] 3.73 10*6/uL Low 4.20-6.00 [facility] Comment on above: Order Comment: Speci men Type: BLOOD SPECIMENOrdering Facility: [facility] Address: [address] [place] [address] Performed By: #### 5 8410-2 ####[facility]ATORYCLIA [id number] [address] [place] WBC (Bld) [#/Vol] 13.39 10*3/uL High 3.70-11.00 [facility] Comment on above: Order Comment: Speci men Type: BLOOD SPECIMENOrdering Facility: [facility] Address: [address] [place] [address] Performed By: #### 5 8410-2 ####[facility]ATORYCLIA [id number] [address] OF [facility] CONSULT PROGon 02-18-2025 CONSULT PROG HNO ID: [id number] Author: TIMMY MARTINEZ RPh Service: Pharmacy Author [...] if there are questions. Timmy Martinez RPh [facility] CONSULT PROG HNO ID: [id number] Author: RADHA GRAHAM RPh Service: Pharmacy Author [...] any questions, please contact Radha Graham at [phone]. Estimated Creatinine Clearance: 86.2 mL/min (based on [...] 02/16/2025 180.3 cm (5' 11") Radha Graham, [facility] February 18, 2025 7:17 AM Normal [facility] Calcium.ionized [Moles/Vol]o n 02-18-2025 Calcium.ionized (BldV) [Mass/Vol] 1.07 mmol/L Low 1.08-1.30 [facility] Comment on above: Order Comment: Speci men Type: BLOOD SPECIMENOrdering Facility: [facility] Address: [address] [place] [address] Performed By: #### 1 995-0 ####[facility]ATORYCLIA [id number] [address] Calcium.ionized adjusted to pH 7.4 (Bld) [Moles/Vol] 1.07 mmol/L Low 1.08-1.30 [facility] Comment on above: Order Comment: Speci men Type: BLOOD SPECIMENOrdering Facility: [facility] Address: [address] [place] [address] Performed By: #### 1 995-0 ####[facility]ATORYCLIA [id number] [address] OF [facility] Comprehensive metabolic 2000 panelon 02-18-2025 Albumin [Mass/Vol] 2.3 g/dL Low 3.9-4.9 [facility] Comment on above: Order Comment: Speci men Type: BLOOD SPECIMENOrdering Facility: [facility] Address: [address] [place] [address] Performed By: #### 2 4323-8, 92737-5 ####[facility]ATORYCLIA [id number] [address] STATES [facility] ALP [Catalytic activity/Vol] 115 U/L High 38-113 [facility] Comment on above: Order Comment: Speci men Type: BLOOD SPECIMENOrdering Facility: [facility] Address: [address] [place] [address] Performed By: #### 2 4323-8, 90000-2 ####[facility]ORATORYCLIA [id number] [place], [place] [id number] [place] [address] [place] ALT With P-5'-P [Catalytic activity/Vol] 25 U/L Normal 10-54 [facility] Comment on above: Order Comment: Speci men Type: BLOOD SPECIMENOrdering Facility: [facility] Address: [address] [place] [address] Performed By: #### 2 4323-8, ####[facility]ATORYCLIA [id number] [address] [place] Anion gap [Moles/Vol] 11 mmol/L Normal 8-15 [facility] Comment on above: Order Comment: Speci men Type: BLOOD SPECIMENOrdering Facility: [facility] Address: [address] [place] [address] Performed By: #### 2 4328, ####[facility]ATORYCLIA [id number] [address] [place] AST With P-5'-P [Catalytic activity/Vol] 38 U/L Normal 14-40 [facility] Comment on above: Order Comment: Speci men Type: BLOOD SPECIMENOrdering Facility: [facility] Address: [address] [place] [address] Performed By: #### 2 43238, ####[facility]ATORYCLIA [id number] [place] [address] [place] Bilirubin [Mass/Vol] 0.6 mg/dL Normal 0.2-1.3 [facility] Comment on above: Order Comment: Speci men Type: BLOOD SPECIMENOrdering Facility: [facility] Address: [address] [place] [address] Performed By: #### 2 4323-8, ####[facility]ATORYCLIA [id number] [address] [place] Calcium [Mass/Vol] 7.8 mg/dL Low 8.5-10.2 [facility] Comment on above: Order Comment: Speci men Type: BLOOD SPECIMENOrdering Facility: [facility] Address: [address] [place] [address] Performed By: #### 2 4323-8, ####[facility]ORATORYCLIA [id number] [place] [address] [place] Chloride [Moles/Vol] 104 mmol/L Normal 98-107 [facility] Comment on above: Order Comment: Speci men Type: BLOOD SPECIMENOrdering Facility: [facility] Address: [address] [place] [address] Performed By: #### 2 4323-8, ####[facility]ORATORYCLIA [id number] [place] [id number] [place] CO2 [Moles/Vol] 20 mmol/L Low 22-30 [facility] Comment on above: Order Comment: Speci men Type: BLOOD SPECIMENOrdering Facility: [facility] Address: [address] [place] [address] Performed By: #### 2 4323-8, ####[facility]ORATORYCLIA [id number] [place] [id number] [place] Creatinine [Mass/Vol] 1.04 mg/dL Normal 0.73-1.22 [facility] Comment on above: Order Comment: Speci men Type: BLOOD SPECIMENOrdering Facility: [facility] Address: [address] [place] [address] Performed By: #### 2 4323-8, ####[facility]ATORYCLIA [id number] [place] [id number] [facility] [place] Creatinine and Glomerular filtration rate.predicted panel (S/P/Bld) 81 mL/min/1.73m??? Normal >=60 [facility] Comment on above: Order Comment: Speci men Type: BLOOD SPECIMENOrdering Facility: [facility] Address: [address] [place] [address] Result Comment: Leena mated Glomerular Filtration Rate [...] reflect actual GFR. Performed By: #### 2 4328, ####[facility]ATORYCLIA [id number] [place] [address] [place] Glucose [Mass/Vol] 177 mg/dL High 74-99 [facility] Comment on above: Order Comment: Jg valdez Type: BLOOD SPECIMENOrdering Facility: [facility] Address: [address] [place], [place] [address] Result Comment: The [place] Diabetes Association (ADA) provides guidance for cutoff [...] Standards of Medical Care in Diabetes 2016, [place] [employer]. Diabetes Care. 2016.39(Suppl 1). Performed By: #### 2 43212-10, ####[facility]ATORYCLIA [id number] [place] [address] [place] Potassium [Moles/Vol] 3.9 mmol/L Normal 3.7-5.1 [facility] Comment on above: Order Comment: Jg valdez Type: BLOOD SPECIMENOrdering Facility: [facility] Address: [address] [place] [address] Performed By: #### 2 43212-10, ####[facility]ATORYCLIA [id number] [place] [address] [place] Protein [Mass/Vol] 5.8 g/dL Low 6.3-8.0 [facility] Comment on above: Order Comment: Speci men Type: BLOOD SPECIMENOrdering Facility: [facility] Address: [address] [place] [address] Performed By: #### 2 4323-8, ####[facility]ATORYCLIA [id number] [place] [address] [place] [facility] Sodium [Moles/Vol] 135 mmol/L Low 136-144 [facility] Comment on above: Order Comment: Speci men Type: BLOOD SPECIMENOrdering Facility: [facility] Address: [address] [place] [address] Performed By: #### 2 4323-8, ####[facility]ATORYCLIA [id number] [place] [address] [place] [facility] Urea nitrogen [Mass/Vol] 37 mg/dL High 9-24 [facility] Comment on above: Order Comment: Speci men Type: BLOOD SPECIMENOrdering Facility: [facility] Address: [address] [place] [address] Performed By: #### 2 43238, ####[facility]ATORYCLIA [id number] [place] [address] [place] Magnesium SerPl-mCncon 02-18 Magnesium [Mass/Vol] 2.3 mg/dL Normal 1.7-2.3 [facility] Comment on above: Order Comment: Speci men Type: BLOOD SPECIMENOrdering Facility: [facility] Address: [address] [place] [address] Performed By: #### 2 4323-8, ####[facility]ATORYCLIA [id number] [place] [address] [place] aPTT PPPon 02-18-2025 aPTT Coag (PPP) [Time] 40.2 s High 23.0-32.4 [facility] Comment on above: Order Comment: Speci men Type: BLOOD SPECIMENOrdering Facility: [facility] Address: [address] [place] [address] Performed By: #### 1 4979-9 ####[facility]ATORYCLIA [id number] [address] aPTT Coag (PPP) [Time] 35.5 s High 23.0-32.4 [facility] Comment on above: Order Comment: Speci men Type: BLOOD SPECIMENOrdering Facility: [facility] Address: [address] [place] [address] Performed By: #### 1 4979-9 ####[facility]ATORYCLIA [id number] [address] aPTT Coag (PPP) [Time] 33.2 s High 23.0-32.4 [facility] Comment on above: Order Comment: Speci men Type: BLOOD SPECIMENOrdering Facility: [facility] Address: [address] [place] [address] Performed By: #### 1 4979-9 ####[facility]ATORYCLIA [id number] [address] aPTT Coag (PPP) [Time] 51.0 s High 23.0-32.4 [facility] Comment on above: Order Comment: Speci men Type: BLOOD SPECIMENOrdering Facility: [facility] Address: [address] [place] [address] Performed By: #### 1 4979-9 ####[facility]ORATORYCLIA [id number] [address] ALLIED HEALTHon 02-17-2025 ALLIED HEALTH HNO ID: [id number] Author: JANEL SIMEON RT(R) Service: Radiology Author [...] PATIENT PRESENTS WITH AN IMPLANTABLE OR ATTACHED SUBGRADE ROLLER OPERATOR: No RADIOLOGY DEPARTMENT: General X-ray: Exam(s) Completed: Abdomen X-Ray: Abdomen PERIPHERAL IV DATA: Not applicable SIGNED BY: RT Chelita(R) February 17, 2025 7:57 AM Normal [facility] Bacteria Spec Resp Culton Bacteria [...] , Intermediate >4 , Resistant >8 Abnormal [facility] Comment on above: Performed By: #### 3 2355-0 ####[facility]ATORYCLIA [id number] [address] OF [facility] CBC panel Auto (Bld)on 02-17 Erythrocyte distribution width (RBC) [Ratio] 15.0 % Normal 11.5-15.0 [facility] Comment on above: Order Comment: Speci men Type: BLOOD SPECIMENOrdering Facility: [facility] Address: [address] [place] [address] Performed By: #### 5 8410-2 ####[facility]ITALCLIA [id number] [address] Hematocrit (Bld) [Volume fraction] 41.4 % Normal 39.0-51.0 [facility] Comment on above: Order Comment: Speci men Type: BLOOD SPECIMENOrdering Facility: [facility] Address: [address] [place] [address] Performed By: #### 5 8410-2 ####[facility]ATORYCLIA [id number] [address] Hemoglobin (Bld) [Mass/Vol] 13.1 g/dL Normal 13.0-17.0 [facility] Comment on above: Order Comment: Speci men Type: BLOOD SPECIMENOrdering Facility: [facility] Address: [address] [place] [address] Performed By: #### 5 8410-2 ####[facility]ATORYCLIA [id number] [address] MCH (RBC) [Entitic mass] 29.9 pg Normal 26.0-34.0 [facility] Comment on above: Order Comment: Speci men Type: BLOOD SPECIMENOrdering Facility: [facility] Address: [address] [place] [address] Performed By: #### 5 8410-2 ####[facility]ATORYCLIA [id number] [address] MCHC (RBC) [Mass/Vol] 31.6 g/dL Normal 30.5-36.0 [facility] Comment on above: Order Comment: Speci men Type: BLOOD SPECIMENOrdering Facility: [facility] Address: [address] [place] [address] Performed By: #### 5 8410-2 ####[facility]ATORYCLIA [id number] [address] MCV (RBC) [Entitic vol] 94.5 fL Normal 80.0-100.0 [facility] Comment on above: Order Comment: Speci men Type: BLOOD SPECIMENOrdering Facility: [facility] Address: [address] [place] [address] Performed By: #### 5 8410-2 ####[facility]ATORYCLIA [id number] [address] Nucleated RBC (Bld) [#/Vol] 10*3/uL Normal <0.01 [facility] Comment on above: Order Comment: Speci men Type: BLOOD SPECIMENOrdering Facility: [facility] Address: [address] [place] [address] Performed By: #### 5 8410-2 ####[facility]ATORYCLIA [id number] [address] Platelet mean volume (Bld) [Entitic vol] 12.0 fL Normal 9.0-12.7 [facility] Comment on above: Order Comment: Speci men Type: BLOOD SPECIMENOrdering Facility: [facility] Address: [address] [place] [address] Performed By: #### 5 8410-2 ####[facility]ATORYCLIA [id number] [address] Platelets (Bld) [#/Vol] 64 10*3/uL Low 150-400 [facility] Comment on above: Order Comment: Speci men Type: BLOOD SPECIMENOrdering Facility: [facility] Address: [address] [place] [address] Result Comment: No c lot detected. Performed By: #### 5 8410-2 ####[facility]ORATORYCLIA [id number] [address] RBC (Bld) [#/Vol] 4.38 10*6/uL Normal 4.20-6.00 [facility] Comment on above: Order Comment: Speci men Type: BLOOD SPECIMENOrdering Facility: [facility] Address: [address] [place] [address] Performed By: #### 5 8410-2 ####[facility] LABORATORYCLIA [id number] [address] STATES OF [facility] WBC (Bld) [#/Vol] 14.96 10*3/uL High 3.70-11.00 [facility] Comment on above: Order Comment: Speci men Type: BLOOD SPECIMENOrdering Facility: [facility] Address: [address] [place] [address] Performed By: #### 5 8410-2 ####[facility] LABORATORYCLIA [id number] [address] Erythrocyte distribution width (RBC) [Ratio] 14.8 % Normal 11.5-15.0 [facility] Comment on above: Order Comment: Speci men Type: BLOOD SPECIMENOrdering Facility: [facility] Address: [address] [place] [address] Performed By: #### 5 8410-2 ####[facility] LABORATORYCLIA [id number] [address] Hematocrit (Bld) [Volume fraction] 36.6 % Low 39.0-51.0 [facility] Comment on above: Order Comment: Speci men Type: BLOOD SPECIMENOrdering Facility: [facility] Address: [address] [place] [address] Performed By: #### 5 8410-2 ####[facility]ORATORYCLIA [id number] [address] Hemoglobin (Bld) [Mass/Vol] 11.9 g/dL Low 13.0-17.0 [facility] Comment on above: Order Comment: Speci men Type: BLOOD SPECIMENOrdering Facility: [facility] Address: [address] [place] [address] Performed By: #### 5 8410-2 ####[facility] LABORATORYCLIA [id number] [address] MCH (RBC) [Entitic mass] 30.1 pg Normal 26.0-34.0 [facility] Comment on above: Order Comment: Speci men Type: BLOOD SPECIMENOrdering Facility: [facility] Address: [address] [place] [address] Performed By: #### 5 8410-2 ####[facility]ORATORYCLIA [id number] [address] MCHC (RBC) [Mass/Vol] 32.5 g/dL Normal 30.5-36.0 [facility] Comment on above: Order Comment: Speci men Type: BLOOD SPECIMENOrdering Facility: [facility] Address: [address] [place] [address] Performed By: #### 5 8410-2 ####[facility]ORATORYCLIA [id number] [address] STATES [facility] MCV (RBC) [Entitic vol] 92.7 fL Normal 80.0-100.0 [facility] Comment on above: Order Comment: Speci men Type: BLOOD SPECIMENOrdering Facility: [facility] Address: [address] [place] [address] Performed By: #### 5 8410-2 ####[facility]ORATORYCLIA [id number] [address] OF [facility] Nucleated RBC (Bld) [#/Vol] 10*3/uL Normal <0.01 [facility] Comment on above: Order Comment: Speci men Type: BLOOD SPECIMENOrdering Facility: [facility] Address: [address] [place] [address] Performed By: #### 5 8410-2 ####[facility]ORATORYCLIA [id number] [place] [address] [place] Platelet mean volume (Bld) [Entitic vol] 11.7 fL Normal 9.0-12.7 [facility] Comment on above: Order Comment: Speci men Type: BLOOD SPECIMENOrdering Facility: [facility] Address: [address] [place] [address] Performed By: #### 5 8410-2 ####[facility]ATORYCLIA [id number] [address] [place] Platelets (Bld) [#/Vol] 93 10*3/uL Low 150-400 [facility] Comment on above: Order Comment: Speci men Type: BLOOD SPECIMENOrdering Facility: [facility] Address: [address] [place] [address] Result Comment: No c lot detected. Performed By: #### 5 8410-2 ####[facility]ATORYCLIA [id number] [place] [address] [place] RBC (Bld) [#/Vol] 3.95 10*6/uL Low 4.20-6.00 [facility] Comment on above: Order Comment: Speci men Type: BLOOD SPECIMENOrdering Facility: [facility] Address: [address] [place] [address] Performed By: #### 5 8410-2 ####[facility]ORATORYCLIA [id number] [place] [address] [place] WBC (Bld) [#/Vol] 19.64 10*3/uL High 3.70-11.00 [facility] Comment on above: Order Comment: Speci men Type: BLOOD SPECIMENOrdering Facility: [facility] Address: [address] [place] [address] Performed By: #### 5 8410-2 ####[facility]ITALCLIA [id number] [place] [address] [place] CONSULTon 02-17-2025 CONSULT HNO ID: [id number] Author: GAYLE SCOTT MD Service: Infectious Disease [...] and UTI. Spinal cord injury [facility], [facility] for unresponsiveness when normally alert [...] 12.5 g (more content not included)... Normal [facility] CONSULT HNO ID: [id number] Author: ANMOL HERBERT MD Service: Urology Author Type: Resident Type: Consults Filed: 02/19/2025 14:56 Note Text: Attestation signed by Anmol Herbert MD at 02/19/2025 2:56 PM I saw and evaluated the patient. Discussed with the resident and agree with resident's findings and plan as documented in the resident's note. Reviewed [facility] hx and imaging. Currently improving. Discussed plan w/ ID (Dr. Scott) Plan on outpt cysto, pyelograms, stent change vs removal in 2-3 weeks. 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 Normal [facility] CONSULT PROGon 02-17-2025 CONSULT PROG HNO ID: [id number] Author: JESSICA CLEMENT RPh Service: Pharmacy Author Type: Pharmacist Type: Consult Progress Note Filed: 02/17/2025 20:50 Note Text: PHARMACY VANCOMYCIN DOSING NOTE Patient Name: Anmol Given Admission Date: 02/16/2025 Date of Consult: 02/17/2025 [...] questions, [place] [phone]. Age: [age] year old Allergies: ALLERGIES No [...] 6.1 (L) 12/02/2021 1246 13.7 Jessica Clement [facility] CONSULT PROG HNO ID: [id number] Author: YARI CAMARGO APRN.DEMURRAGE AGENT Service: Wound/Ostomy Author Type: Nurse Practitioner Type: Consult Progress Note Filed: 02/17/2025 10:33 Note Text: Summary: Inpatient Wound Care WOUND CARE SERVICE CONSULT QUALITY AUDIT REPRESENTATIVE NOTE SERVICE DATE: 02/17/2025 SERVICE TIME: 0809 [...] who is seen today with Katlin Vasquez, Wound/mdm developer, and presented to hospital with complaints of [...] PRN cyc (more content not included)... Normal [facility] CONSULT PROG HNO ID: [id number] Author: RUBI RIVER RPh Service: Pharmacy Author [...] have any questions, [place] [phone]. Age: [age] year old Allergies: ALLERGIES No [...] 1246 13.7 12/01/2021 0428 14.2 [place] [facility] Normal [facility] Comprehensive metabolic 2000 panelon 02-17-2025 Albumin [Mass/Vol] 2.5 g/dL Low 3.9-4.9 [facility] Comment on above: Order Comment: Speci men Type: BLOOD SPECIMENOrdering Facility: [facility] Address: [address] [place] [address] Performed By: #### 2 777-1, 51745-0 ####[facility]ORATORYCLIA [id number] [place] [address] [place] ALP [Catalytic activity/Vol] 174 U/L High 38-113 [facility] Comment on above: Order Comment: Speci men Type: BLOOD SPECIMENOrdering Facility: [facility] Address: [address] [place] [address] Performed By: #### 2 777-1, 12232-4 ####[facility]ORATORYCLIA [id number] [place] [address] [place] ALT With P-5'-P [Catalytic activity/Vol] 21 U/L Normal 10-54 [facility] Comment on above: Order Comment: Speci men Type: BLOOD SPECIMENOrdering Facility: [facility] Address: [address] [place] [address] Performed By: #### 2 777-1, 02238-0 ####[facility]ORATORYCLIA [id number] [place] [address] [place] Anion gap [Moles/Vol] 11 mmol/L Normal 8-15 [facility] Comment on above: Order Comment: Speci men Type: BLOOD SPECIMENOrdering Facility: [facility] Address: [address] [place] [address] Performed By: #### 2 777-1, 59466-2 ####[facility]ATORYCLIA [id number] [place] [address] [place] AST With P-5'-P [Catalytic activity/Vol] 41 U/L High 14-40 [facility] Comment on above: Order Comment: Speci men Type: BLOOD SPECIMENOrdering Facility: [facility] Address: [address] [place] [address] Performed By: #### 2 777-1, 50388-9 ####[facility]ATORYCLIA [id number] [place] [address] [place] Bilirubin [Mass/Vol] 0.9 mg/dL Normal 0.2-1.3 [facility] Comment on above: Order Comment: Speci men Type: BLOOD SPECIMENOrdering Facility: [facility] Address: [address] [place] [address] Performed By: #### 2 777-1, 42554-8 ####[facility]ATORYCLIA [id number] [place] [address] [place] Calcium [Mass/Vol] 8.2 mg/dL Low 8.5-10.2 [facility] Comment on above: Order Comment: Speci men Type: BLOOD SPECIMENOrdering Facility: [facility] Address: [address] [place] [address] Performed By: #### 2 777-1, 44560-1 ####[facility]ATORYCLIA [id number] [place] [address] [place] Chloride [Moles/Vol] 104 mmol/L Normal 98-107 [facility] Comment on above: Order Comment: Speci men Type: BLOOD SPECIMENOrdering Facility: [facility] Address: [address] [place] [address] Performed By: #### 2 777-1, 62962-0 ####[facility]ORATORYCLIA [id number] [place] [address] [place] CO2 [Moles/Vol] 17 mmol/L Low 22-30 [facility] Comment on above: Order Comment: Speci men Type: BLOOD SPECIMENOrdering Facility: [facility] Address: [address] [place] [address] Performed By: #### 2 777-1, 89539-2 ####[facility]ORATORYCLIA [id number] [address] [place] Creatinine [Mass/Vol] 1.90 mg/dL High 0.73-1.22 [facility] Comment on above: Order Comment: Speci men Type: BLOOD SPECIMENOrdering Facility: [facility] Address: [address] [place] [address] Performed By: #### 2 777-1, 92540-8 ####[facility] HEALTHIA [id number] [address] Creatinine and Glomerular filtration rate.predicted panel (S/P/Bld) 39 mL/min/1.73m??? Low >=60 [facility] Comment on above: Order Comment: Speci men Type: BLOOD SPECIMENOrdering Facility: [facility] Address: [address] [place] [address] Result Comment: Leena mated Glomerular Filtration Rate [...] actual GFR. Performed By: #### 2 777-1, 69161-6 ####[facility]ORATORYCLIA [id number] [address] [place] Glucose [Mass/Vol] 225 mg/dL High 74-99 [facility] Comment on above: Order Comment: Speci men Type: BLOOD SPECIMENOrdering Facility: [facility] Address: [address] [id number] Result Comment: The [place] [employer] (ADA) provides guidance for cutoff [...] Standards of Medical Care in Diabetes 2016, [place] [employer]. Diabetes Care. 2016.39(Suppl 1). Performed By: #### 2 777-1, 63021-2 ####[facility]ORATORYCLIA [id number] [place] [address] [place] Potassium [Moles/Vol] 4.7 mmol/L Normal 3.7-5.1 [facility] Comment on above: Order Comment: Speci men Type: BLOOD SPECIMENOrdering Facility: [facility] Address: [address] [place] [address] Performed By: #### 2 777-1, 34811-4 ####[facility]ORATORYCLIA [id number] [place] [address] [place] Protein [Mass/Vol] 6.0 g/dL Low 6.3-8.0 [facility] Comment on above: Order Comment: Speci men Type: BLOOD SPECIMENOrdering Facility: [facility] Address: [address] [id number] Performed By: #### 2 777-1, 21761-5 ####[facility]ORATORYCLIA [id number] [place] [address] [place] Sodium [Moles/Vol] 132 mmol/L Low 136-144 [facility] Comment on above: Order Comment: Speci men Type: BLOOD SPECIMENOrdering Facility: [facility] Address: [address] [address] Performed By: #### 2 777-1, 26537-2 ####[facility] LABORATORYCLIA [id number] [place] [address] [place] Urea nitrogen [Mass/Vol] 34 mg/dL High 9-24 [facility] Comment on above: Order Comment: Speci men Type: BLOOD SPECIMENOrdering Facility: [facility] Address: [address] [place] [address] Performed By: #### 2 777-1, 11716-9 ####[facility]ORATORYCLIA [id number] [place] [address] [place] ECG COMPLETEon 02-17-2025 ECG COMPLETE Ventricular Rate : 152 BPM QRS Duration : 100 ms Q-T Interval : 300 ms QTC Calculation(Bazett) : 477 ms Calculated R Grand Chain : 16 degrees Calculated T Grand Chain : 7 degrees ATRIAL FIBRILLATION WITH RAPID VENTRICULAR RESPONSE NONSPECIFIC T WAVE ABNORMALITY ABNORMAL ECG WHEN COMPARED WITH ECG OF 16-Feb-2025 19:16, ATRIAL FIBRILLATION HAS REPLACED SINUS RHYTHM NONSPECIFIC T WAVE ABNORMALITY NOW EVIDENT IN INFERIOR LEADS Confirmed by MANISHA ANDERSEN MD ([id number]) on 02/17/2025 9:11:43 AM NAME : ANMOL REYNOLDS PID : [id number] : 1960 Gender : Male Race : ORD : [id number] Procedure Date : Feb 17 2025 07:55:31 Edit Date : Feb 17 2025 09:11:44 Diagnosis: ATRIAL FIBRILLATION WITH RAPID VENTRICULAR RESPONSE NONSPECIFIC T WAVE ABNORMALITY ABNORMAL ECG WHEN COMPARED WITH ECG OF 16-Feb-2025 19:16, ATRIAL FIBRILLATION HAS REPLACED SINUS RHYTHM NONSPECIFIC T WAVE ABNORMALITY NOW EVIDENT IN INFERIOR LEADS Confirmed by MANISHA ANDERSEN MD ([id number]) on 02/17/2025 9:11:43 AM Test Reason : Arrhythmia Location : 200 : [facility] 48 Overread By : MANISHA ANDERSEN MD Edited By : MANISHA ANDERSEN MD Referred By : , Acquired by : SANDHYA ABURTO [facility] ECHOon 02-17-2025 Echocardiography Echocardiography Report: Transthoracic Echo [facility] Date of service: 02/17/2025 10:58:00 AM HOSPITAL Ordering physician: JON MCDONALD Indication: Sustained atrial fibrillation Technologist: Marie Magana [facility] Interpreting physician: Naresh Yo MD [...] * * * Final * * * [facility] Image : [id number] amicsSISUID Normal [facility] Gas and Carbon monoxide pane l (BldV)on 02-17-2025 BASE DEFICIT, VENOUS -7 mmol/L Low -2-0 [facility] Comment on above: Order Comment: Speci men Type: VENOUS BLOOD SPECIMENOrdering Facility: [facility] Address: [address] [place] [address] Performed By: #### 2 4344-4 ####[facility]ORATORYCLIA [id number] [place] [address] [place] Body temperature 99.86 [degF] Normal [facility] Comment on above: Order Comment: [place] men Type: VENOUS BLOOD SPECIMENOrdering Facility: [facility] Address: [address] [place] [address] Performed By: #### 2 4344-4 ####[facility]ORATORYCLIA [id number] [address] Calcium.ionized (BldV) [Mass/Vol] 1.17 mmol/L Normal 1.08-1.30 [facility] Comment on above: Order Comment: Speci men Type: VENOUS BLOOD SPECIMENOrdering Facility: [facility] Address: [address] [place] [address] Performed By: #### 2 4344-4 ####[facility]ORATORYCLIA [id number] [address] Calcium.ionized adjusted to pH 7.4 (BldA) [Moles/Vol] 1.12 mmol/L Normal 1.08-1.30 [facility] Comment on above: Order Comment: Speci men Type: VENOUS BLOOD SPECIMENOrdering Facility: [facility] Address: [address] [place] [address] Performed By: #### 2 4344-4 ####[facility]PITALCLIA [id number] [address] Carboxyhemoglobin (BldV) [Mass fraction] 1.1 % Normal 0.0-2.0 [facility] Comment on above: Order Comment: Speci men Type: VENOUS BLOOD SPECIMENOrdering Facility: [facility] Address: [address] [place] [address] Result Comment: Carb oxyhemoglobin Reference Range for Smokers: 2.0-8.0% Performed By: #### 2 4344-4 ####[facility]ATORYCLIA [id number] [address] [place] Chloride [Moles/Vol] 107 mmol/L High 97-105 [facility] Comment on above: Order Comment: Speci men Type: VENOUS BLOOD SPECIMENOrdering Facility: [facility] Address: [address] [place] [address] Performed By: #### 2 4344-4 ####[facility]ORATORYCLIA [id number] [place] [address] [place] CO2 (BldV) [Partial pressure] 38 mm[Hg] Low 42-55 [facility] Comment on above: Order Comment: Speci men Type: VENOUS BLOOD SPECIMENOrdering Facility: [facility] Address: [address] [place] [address] Performed By: #### 2 4344-4 ####[facility]ORATORYCLIA [id number] [address] [place] CO2 adjusted to patient's actual temperature (BldV) [Partial pressure] 39 mmHg Low 42-55 [facility] Comment on above: Order Comment: Speci men Type: VENOUS BLOOD SPECIMENOrdering Facility: [facility] Address: [address] [place] [address] Performed By: #### 2 4344-4 ####[facility]ATORYCLIA [id number] [address] [place] Glucose [Mass/Vol] 236 mg/dL High 60-105 [facility] Comment on above: Order Comment: Speci men Type: VENOUS BLOOD SPECIMENOrdering Facility: [facility] Address: [address] [place] [address] Performed By: #### 2 4344-4 ####[facility]ATORYCLIA [id number] [place] [address] [place] HCO3 (Bld) [Moles/Vol] 18 mmol/L Low 24-28 [facility] Comment on above: Order Comment: Speci men Type: VENOUS BLOOD SPECIMENOrdering Facility: [facility] Address: [address] [place] [address] Performed By: #### 2 4344-4 ####[facility]ATORYCLIA [id number] [place] [address] [place] Hematocrit (Bld) [Volume fraction] 37.3 % Low 39.0-51.0 [facility] Comment on above: Order Comment: Speci men Type: VENOUS BLOOD SPECIMENOrdering Facility: [facility] Address: [address] [place] [address] Performed By: #### 2 4344-4 ####[facility]ATORYCLIA [id number] [address] [place] Hemoglobin (Bld) [Mass/Vol] 12.1 g/dL Low 13.0-17.0 [facility] Comment on above: Order Comment: Speci men Type: VENOUS BLOOD SPECIMENOrdering Facility: [facility] Address: [address] [place] [address] Performed By: #### 2 4344-4 ####[facility]ATORYCLIA [id number] [address] OF [place] Lactate [Moles/Vol] 2.2 mmol/L Normal 0.5-2.2 [facility] Comment on above: Order Comment: Speci men Type: VENOUS BLOOD SPECIMENOrdering Facility: [facility] Address: [address] [place] [address] Performed By: #### 2 4344-4 ####[facility]ATORYCLIA [id number] [address] OF [place] Methemoglobin (Bld) [Mass fraction] 0.8 % Normal 0.0-1.5 [facility] Comment on above: Order Comment: Speci men Type: VENOUS BLOOD SPECIMENOrdering Facility: [facility] Address: [address] [place] [address] Performed By: #### 2 4344-4 ####[facility]ATORYCLIA [id number] [address] OF [place] O2 THERAPY VENT=Ventilator Normal [facility] Comment on above: Order Comment: Speci men Type: VENOUS BLOOD SPECIMENOrdering Facility: [facility] Address: [address] [place] [address] Performed By: #### 2 4344-4 ####[facility]ORATORYCLIA [id number] [address] OF [place] Oxygen (BldV) [Partial pressure] 65 mm[Hg] High 35-45 [facility] Comment on above: Order Comment: Speci men Type: VENOUS BLOOD SPECIMENOrdering Facility: [facility] Address: [address] [place] [address] Performed By: #### 2 4344-4 ####[facility]ATORYCLIA [id number] [address] Oxygen adjusted to patient's actual temperature (BldV) [Partial pressure] 68 mmHg High 35-45 [facility] Comment on above: Order Comment: Speci men Type: VENOUS BLOOD SPECIMENOrdering Facility: [facility] Address: [address] [place] [address] Performed By: #### 2 4344-4 ####[facility] [facility]ATORYCLIA [id number] [address] [place] Oxygen saturation in Venous blood 90 % High 60-85 [facility] Comment on above: Order Comment: Speci men Type: VENOUS BLOOD SPECIMENOrdering Facility: [facility] Address: [address] [place] [address] Performed By: #### 2 4344-4 ####[facility]ATORYCLIA [id number] [address] Oxyhemoglobin (BldV) [Mass fraction] 89 % High 60-85 [facility] Comment on above: Order Comment: Speci men Type: VENOUS BLOOD SPECIMENOrdering Facility: [facility] Address: [address] [place] [address] Performed By: #### 2 4344-4 ####[facility]ORATORYCLIA [id number] [address] [place] pH (BldV) 7.31 [pH] Low 7.32-7.42 [facility] Comment on above: Order Comment: Speci men Type: VENOUS BLOOD SPECIMENOrdering Facility: [facility] Address: [address] [place] [address] Performed By: #### 2 4344-4 ####[facility]ATORYCLIA [id number] [address] pH adjusted to patient's actual temperature (BldV) 7.30 Low 7.32-7.42 [facility] Comment on above: Order Comment: Speci men Type: VENOUS BLOOD SPECIMENOrdering Facility: [facility] Address: [address] [place] [address] Performed By: #### 2 4344-4 ####[facility]ATORYCLIA [id number] [address] Potassium [Moles/Vol] 4.7 mmol/L Normal 3.5-5.0 [facility] Comment on above: Order Comment: Speci men Type: VENOUS BLOOD SPECIMENOrdering Facility: [facility] Address: [address] [place] [address] Performed By: #### 2 4344-4 ####[facility]ORATORYCLIA [id number] [address] OF [facility] Sodium [Moles/Vol] 134 mmol/L Low 136-144 [facility] Comment on above: Order Comment: Speci men Type: VENOUS BLOOD SPECIMENOrdering Facility: [facility] Address: [address] [place] [address] Performed By: #### 2 4344-4 ####[facility]ATORYCLIA [id number] [address] OF [facility] NURSING PROGon 02-17-2025 NURSING PROG HNO ID: [id number] Author: ARLEN BUTLER RN Service: Nursing Author Type: Registered Nurse Type: Nursing Progress Note Filed: 02/17/2025 07:12 Note Text: Dr. Story and Dr. Gama at bedside. Pt in Afib rhythm. Order for 2 grams Magnesium IV Normal [facility] NUTRITIONon 02-17-2025 NUTRITION HNO ID: [id number] Author: DARA MCDUFFIE RD Service: Nutrition Therapy [...] h/o paraplegia and wounds admitted from a [facility] after being found unresponsive with concerns for sepsis. Intubated in ICU. Intake History: Nutrition Intake Prior to Admission: Greater than 75% estimated energy needs Dosing Weight: 74 kg (163 lb 2.3 oz) Dosing Weight Type: [place] body weight (adjusted for paraplegia) Estimated kilocalorie [...] Duration Indwelling Urinary Catheter 02/16/252125 [facility] Coude 20 Fr <1 day MNT Billing: $ Initial Assessment: 1 unit Time Spent (mins): 8 SIGNATURE: Dara Mcduffie RD PATIENT NAME: Anmol Given DATE: February 17, 2025 TIME: 8:02 AM Normal [facility] PT panel Coag (PPP)on 2024 INR Coag (PPP) [Relative time] 1.2 {INR} Normal 0.9-1.3 [facility] Comment on above: Order Comment: Speci men Type: BLOOD SPECIMENOrdering Facility: [facility] Address: [address] [place] [address] Result Comment: Lorna min K Antagonist (VKA) Therapeutic Range: INR 2 to 3 (Target INR of 2.5) Note: For patients treated with VKA drugs, such as warfarin, the [place] [employer] 2012 Guideline recommends [...] to 3.5 (target INR of 3). Sravan BAEZ, et al. Chest 2012, 141:7S-47S Marcela CHEEMA, et al. [facility] 2017, 70: 252-289 Performed By: #### 1 4979-9, 68740-3 ####[facility]ITALCLIA [id number] [place] [address] [place] PT Coag (PPP) [Time] 12.4 s Normal 9.7-13.0 [facility] Comment on above: Order Comment: Speci men Type: BLOOD SPECIMENOrdering Facility: [facility] Address: [address] [place] [address] Performed By: #### 1 4979-9, 64287-1 ####[facility]ORATORYCLIA [id number] [place] [address] [place] Phosphate SerPl-mCncon 02-17 Phosphate [Mass/Vol] 4.4 mg/dL Normal 2.7-4.8 [facility] Comment on above: Order Comment: Speci men Type: BLOOD SPECIMENOrdering Facility: [facility] Address: [address] [place] [address] Performed By: #### 2 777-1, 46325-2 ####[facility]ATORYCLIA [id number] [place] [address] [place] STAPHYLOCOCCUS AUREUS AND MR SA SCREEN, PCR, NASALon 02-17-2025 S. aureus and MRSA panel JOSSY+probe (Nose) Methicillin-SUSCEPTIB LE Staphylococcus aureus Detected Abnormal Not Detected [facility] Comment on above: Order Comment: Speci men Type: SWABOrdering Facility: [facility] Address: [address] [place] [address] Performed By: #### S APCR ####[facility]ORATORYCLIA [id number] [address] OF [facility] THERAPY NTon 02-17-2025 THERAPY NT HNO ID: [id number] Author: SANDHYA ABURTO RRT Service: Respiratory Therapy [...] 2025 TIME: 8:03 AM PAGER/CONTACT #: angela Normal [facility] Vancomycin random [Mass/Vol] on 02-17-2025 Vancomycin [Mass/Vol] 6.1 ug/mL Low 10.0-20.0 [facility] Comment on above: Order Comment: Speci men Type: BLOOD SPECIMENOrdering Facility: [facility] Address: [address] [place] [address] Result Comment: Refe rence ranges and high/low indicator flags are provided as general guidelines only. The treating physician must determine appropriate target levels/dosing based on the specific clinical situation. Performed By: #### 4 091-5 ####[facility]ATORYCLIA [id number] [address] XR ABDOMEN 1V SUPINEon 02-17 XR [...] The side port overlies the GE junction. [facility] Lab Technician: CECILIA Transcribe Date/Time: Feb 17 2025 11:05A Dictated by : VIPIN JASSO MD This examination was interpreted and the report reviewed and electronically signed by: VIPIN JASSO MD on Feb 17 2025 11:06AM EST [id number] N Normal [facility] aPTT PPPon 02-17-2025 aPTT Coag (PPP) [Time] 38.7 s High 23.0-32.4 [facility] Comment on above: Order Comment: Speci men Type: BLOOD SPECIMENOrdering Facility: [facility] Address: [address] [place] [address] Performed By: #### 1 4979-9 ####[facility]ATORYCLIA [id number] [address] aPTT Coag (PPP) [Time] EXTREMELY ABNORMA L RESULT. No clot detected at 320 seconds. Refer to anticoagulation nomogram for further actions. Critically abnormal (none) [facility] Comment on above: Order Comment: Speci men Type: BLOOD SPECIMENOrdering Facility: [facility] Address: [address] [place] [address] Performed By: #### 1 4979-9 ####[facility]ATORYCLIA [id number] [address] aPTT Coag (PPP) [Time] 36.7 s High 23.0-32.4 [facility] Comment on above: Order Comment: Speci men Type: BLOOD SPECIMENOrdering Facility: [facility] Address: [address] [id number] Performed By: #### 1 4979-9, 74367-6 ####[facility]ATORYCLIA [id number] [address] ALLIED HEALTHon 02-16-2025 ALLIED HEALTH HNO ID: [id number] Author: DILCIA BASILIO RT(R) Service: ? Author [...] PATIENT PRESENTS WITH AN IMPLANTABLE OR ATTACHED SUBGRADE ROLLER OPERATOR: No ALLERGIES: Reviewed and unchanged CONTRAST ALLERGY: [...] February 16, 2025 TIME: 8:26 PM Normal [facility] Bacteria Bld Culton 02-17-20 Bacteria [...] , Intermediate >=.5 , Resistant >=1 Abnormal [facility] Comment on above: Performed By: #### 6 00-7 ####[facility]ATORYCLIA [id number] [place] [address] [place] Bacteria identified Cx [...] , Intermediate >=.5 , Resistant >=1 Abnormal [facility] Comment on above: Performed By: #### 6 00-7 #### [facility] CLIA [id number] [address] [place] [id number] [place] Bacteria Ur Culton [...] , Intermediate >32 , Resistant >64 Abnormal [facility] Comment on above: Performed By: #### 2 4356-8, 630-4 ####[facility]ATORYCLIA [id number] [address] STATES OF [facility] CBC W Auto Differential pane l (Bld)on 02-16-2025 Basophils (Bld) [#/Vol] 0.00 10*3/uL Normal <0.11 [facility] Comment on above: Order Comment: Speci men Type: BLOOD SPECIMENOrdering Facility: [facility] Address: [address] [place] [address] Performed By: #### 5 7021-8 ####[facility]ATORYCLIA [id number] [address] STATES [facility] Basophils/100 WBC (Bld) 0.0 % Normal A [facility] Comment on above: Order Comment: Speci men Type: BLOOD SPECIMENOrdering Facility: [facility] Address: [address] [place] [address] Performed By: #### 5 7021-8 ####[facility]ATORYCLIA [id number] [address] Differential cell count method Nom (Bld) Manual Normal [facility] Comment on above: Order Comment: Speci men Type: BLOOD SPECIMENOrdering Facility: [facility] Address: [address] [place] [address] Performed By: #### 5 7021-8 ####[facility]ATORYCLIA [id number] [address] OF [facility] Eosinophils (Bld) [#/Vol] 0.00 10*3/uL Normal <0.46 [facility] Comment on above: Order Comment: Speci men Type: BLOOD SPECIMENOrdering Facility: [facility] Address: [address] [place] [address] Performed By: #### 5 7021-8 ####[facility]ATORYCLIA [id number] [address] STATES [facility] Eosinophils/100 WBC (Bld) 0.0 % Normal [facility] Comment on above: Order Comment: Speci men Type: BLOOD SPECIMENOrdering Facility: [facility] Address: [address] [place] [address] Performed By: #### 5 7021-8 ####[facility]ORYCLIA [id number] [address] STATES OF [facility] Erythrocyte distribution width (RBC) [Ratio] 14.5 % Normal 11.5-15.0 [facility] Comment on above: Order Comment: Speci men Type: BLOOD SPECIMENOrdering Facility: [facility] Address: [address] [place] [address] Performed By: #### 5 7021-8 ####[facility]ATORYCLIA [id number] [address] Hematocrit (Bld) [Volume fraction] 34.9 % Low 39.0-51.0 [facility] Comment on above: Order Comment: Speci men Type: BLOOD SPECIMENOrdering Facility: [facility] Address: [address] [place] [address] Performed By: #### 5 7021-8 ####[facility]ATORYCLIA [id number] [address] OF [place] Hemoglobin (Bld) [Mass/Vol] 11.6 g/dL Low 13.0-17.0 [facility] Comment on above: Order Comment: Speci men Type: BLOOD SPECIMENOrdering Facility: [facility] Address: [address] [place] [address] Performed By: #### 5 7021-8 ####[facility]ATORYCLIA [id number] [address] [place] Lymphocytes (Bld) [#/Vol] 0.31 10*3/uL Low 1.00-4.00 [facility] Comment on above: Order Comment: Speci men Type: BLOOD SPECIMENOrdering Facility: [facility] Address: [address] [place] [address] Performed By: #### 5 7021-8 ####[facility]ATORYCLIA [id number] [address] Lymphocytes/100 WBC (Bld) 3.0 % Normal [facility] Comment on above: Order Comment: Speci men Type: BLOOD SPECIMENOrdering Facility: [facility] Address: [address] [place] [address] Performed By: #### 5 7021-8 ####[facility]ATORYCLIA [id number] [address] STATES OF [facility] MCH (RBC) [Entitic mass] 30.1 pg Normal 26.0-34.0 [facility] Comment on above: Order Comment: Speci men Type: BLOOD SPECIMENOrdering Facility: [facility] Address: [address] [place] [address] Performed By: #### 5 7021-8 ####[facility]ATORYCLIA [id number] [address] STATES OF [facility] MCHC (RBC) [Mass/Vol] 33.2 g/dL Normal 30.5-36.0 [facility] Comment on above: Order Comment: Speci men Type: BLOOD SPECIMENOrdering Facility: [facility] Address: [address] [place] [address] Performed By: #### 5 7021-8 ####[facility]ATORYCLIA [id number] [address] STATES OF [facility] MCV (RBC) [Entitic vol] 90.6 fL Normal 80.0-100.0 [facility] Comment on above: Order Comment: Speci men Type: BLOOD SPECIMENOrdering Facility: [facility] Address: [address] [place] [address] Performed By: #### 5 7021-8 ####[facility]ATORYCLIA [id number] [address] Metamyelocytes/100 WBC (Bld) 3.0 % Normal [facility] Comment on above: Order Comment: Speci men Type: BLOOD SPECIMENOrdering Facility: [facility] Address: [facility] [place] [address] Performed By: #### 5 7021-8 ####[facility]ATORYCLIA [id number] [place] [address] [place] Monocytes (Bld) [#/Vol] 0.41 10*3/uL Normal <0.87 [facility] Comment on above: Order Comment: Speci men Type: BLOOD SPECIMENOrdering Facility: [facility] Address: [address] [place] [address] Performed By: #### 5 7021-8 ####[facility]ATORYCLIA [id number] [address] STATES [place] Monocytes/100 WBC (Bld) 4.0 % Normal [facility] Comment on above: Order Comment: Speci men Type: BLOOD SPECIMENOrdering Facility: [facility] Address: [address] [place] [address] Performed By: #### 5 7021-8 ####[facility]ORATORYCLIA [id number] [place] [address] [place] Neutrophils (Bld) [#/Vol] 9.26 10*3/uL High 1.45-7.50 [facility] Comment on above: Order Comment: Speci men Type: BLOOD SPECIMENOrdering Facility: [facility] Address: [address] [place] [address] Performed By: #### 5 7021-8 ####[facility]ATORYCLIA [id number] [address] STATES [place] Neutrophils/100 WBC (Bld) 90.0 % Normal [facility] Comment on above: Order Comment: Speci men Type: BLOOD SPECIMENOrdering Facility: [facility] Address: [address] [place] [address] Performed By: #### 5 7021-8 ####[facility]ORYCLIA [id number] [address] Nucleated RBC (Bld) [#/Vol] 10*3/uL Normal <0.01 [facility] Comment on above: Order Comment: Speci men Type: BLOOD SPECIMENOrdering Facility: [facility] Address: [address] [place] [address] Performed By: #### 5 7021-8 ####[facility]ATORYCLIA [id number] [address] OF [facility] Nucleated RBC/100 WBC (Bld) [Ratio] 0.0 /100 WBC Normal [facility] Comment on above: Order Comment: Speci men Type: BLOOD SPECIMENOrdering Facility: [facility] Address: [address] [place] [address] Performed By: #### 5 7021-8 ####[facility]ATORYCLIA [id number] [address] Platelet mean volume (Bld) [Entitic vol] 10.6 fL Normal 9.0-12.7 [facility] Comment on above: Order Comment: Speci men Type: BLOOD SPECIMENOrdering Facility: [facility] Address: [address] [place] [address] Performed By: #### 5 7021-8 ####[facility]ATORYCLIA [id number] [address] Platelets (Bld) [#/Vol] 108 10*3/uL Low 150-400 [facility] Comment on above: Order Comment: Speci men Type: BLOOD SPECIMENOrdering Facility: [facility] Address: [address] [place] [address] Result Comment: No c lot detected. Performed By: #### 5 7021-8 ####[facility]ATORYCLIA [id number] [address] Platelets Estimate (Bld) [#/Vol] Decreased Normal [facility] Comment on above: Order Comment: Speci men Type: BLOOD SPECIMENOrdering Facility: [facility] Address: [address] [place] [address] Performed By: #### 5 7021-8 ####[facility]ATORYCLIA [id number] [address] RBC (Bld) [#/Vol] 3.85 10*6/uL Low 4.20-6.00 [facility] Comment on above: Order Comment: Speci men Type: BLOOD SPECIMENOrdering Facility: [facility] Address: [address] [place] [address] Performed By: #### 5 7021-8 ####[facility]ATORYCLIA [id number] [address] RED CELL MORPH Reviewed: unremarkable Normal [facility] Comment on above: Order Comment: Speci men Type: BLOOD SPECIMENOrdering Facility: [facility] Address: [address] [place] [address] Performed By: #### 5 7021-8 ####[facility]ATORYCLIA [id number] [address] STATES OF [facility] WBC (Bld) [#/Vol] 10.29 10*3/uL Normal 3.70-11.00 [facility] Comment on above: Order Comment: Speci men Type: BLOOD SPECIMENOrdering Facility: [facility] Address: [address] [place] [address] Performed By: #### 5 7021-8 ####[facility]ATORYCLIA [id number] [address] ABD/PEL W IVCONon 05-15-[address] ABD/PEL W IVCON * * *Final Report* * * DATE OF EXAM: Feb 16 2025 8:33PM [facility] 0530 - CT ABD/PEL W IVCON [...] 8. Details above. 9. Follow-up as indicated. [facility] Lab Technician: CECILIA Transcribe Date/Time: Feb 16 2025 10:02P Dictated by : CORBIN PERRY MD This examination was interpreted and the report reviewed and electronically signed by: CORBIN PERRY MD on Feb 16 2025 10:34PM EST 16 (more content not included)... Normal [facility] CT BRAIN WO IVCONon -15- 25 CT BRAIN WO IVCON * * *Final Report* * * DATE OF EXAM: Feb 16 2025 8:33PM [facility] 0504 - CT BRAIN WO IVCON [...] involving the major extra or intracranial arteries. [facility]riles Lab Technician: PSCB Transcribe Date/Time: Feb 16 2025 9:23P Dictated by : BYRON SRINIVASAN MD This examination was interpreted and the report reviewed and electronically signed by: BYRON SRINIVASAN MD on Feb 16 2025 9:34PM EST [id number] N Normal [facility] CT CHEST W IVCONon 5 CT CHEST W IVCON * * *Final Report* * * DATE OF EXAM: Feb 16 2025 8:33PM [facility] 0539 - CT CHEST W IVCON [...] the gastroesophageal junction and should be advanced. [facility] Lab Technician: CECILIA Transcribe Date/Time: Feb 16 2025 9:56P Dictated by : ELLIOT ANGELA DO This examination was interpreted and the report reviewed and electronically signed by: ELLIOT ANGELA DO on Feb 16 2025 10:13PM EST [id number] N Normal [facility] CTA HEAD W IVCONon 5 CTA HEAD W IVCON * * *Final Report* * * DATE OF EXAM: Feb 16 2025 8:33PM [facility] 0022 - CTA HEAD W IVCON [...] involving the major extra or intracranial arteries. [facility] Lab Technician: PSCB Transcribe Date/Time: Feb 16 2025 9:23P Dictated by : BYRON SRINIVASAN MD This examination was interpreted and the report reviewed and electronically signed by: BYRON SRINIVASAN MD on Feb 16 2025 9:34PM EST [id number] N Normal [facility] CTA NECK W IVCONon CTA NECK W IVCON * * *Final Report* * * DATE OF EXAM: Feb 16 2025 8:33PM [facility] 0024 - CTA NECK W IVCON [...] involving the major extra or intracranial arteries. Nitriles Lab Technician: [facility] Transcribe Date/Time: Feb 16 2025 9:23P Dictated by : BYRON SRINIVASAN MD This examination was interpreted and the report reviewed and electronically signed by: BYRON SRINIVASAN MD on Feb 16 2025 9:34PM EST [id number] N Normal [facility] Comprehensive metabolic 2000 panelon 02-16-2025 Albumin [Mass/Vol] 2.3 g/dL Low 3.9-4.9 [facility] Comment on above: Order Comment: Speci men Type: BLOOD SPECIMENOrdering Facility: [facility] Address: [address] [place] [address] Performed By: #### 2 4323-8, ####[facility]ORATORYCLIA [id number] [place] [address] [place] ALP [Catalytic activity/Vol] 286 U/L High 38-113 [facility] Comment on above: Order Comment: Speci men Type: BLOOD SPECIMENOrdering Facility: [facility] Address: [address] [place] [address] Performed By: #### 2 4323-8, ####[facility]ORATORYCLIA [id number] [place] [address] [place] ALT With P-5'-P [Catalytic activity/Vol] 17 U/L Normal 10-54 [facility] Comment on above: Order Comment: Speci men Type: BLOOD SPECIMENOrdering Facility: [facility] Address: [address] [place] [address] Performed By: #### 2 4323-8, ####[facility]ATORYCLIA [id number] [address] [place] Anion gap [Moles/Vol] 14 mmol/L Normal 8-15 [facility] Comment on above: Order Comment: Speci men Type: BLOOD SPECIMENOrdering Facility: [facility] Address: [address] [place] [address] Performed By: #### 2 4328, ####[facility]ATORYCLIA [id number] [address] [place] AST With P-5'-P [Catalytic activity/Vol] 31 U/L Normal 14-40 [facility] Comment on above: Order Comment: Speci men Type: BLOOD SPECIMENOrdering Facility: [facility] Address: [address] [place] [address] Performed By: #### 2 43238, ####[facility]ATORYCLIA [id number] [place] [address] [place] Bilirubin [Mass/Vol] 0.9 mg/dL Normal 0.2-1.3 [facility] Comment on above: Order Comment: Speci men Type: BLOOD SPECIMENOrdering Facility: [facility] Address: [address] [place] [address] Performed By: #### 2 4323-8, ####[facility]ORATORYCLIA [id number] [address] [place] Calcium [Mass/Vol] 7.7 mg/dL Low 8.5-10.2 [facility] Comment on above: Order Comment: Speci men Type: BLOOD SPECIMENOrdering Facility: [facility] Address: [address] [place] [address] Performed By: #### 2 4323-8, ####[facility]ORATORYCLIA [id number] [place] [address] [place] Chloride [Moles/Vol] 105 mmol/L Normal 98-107 [facility] Comment on above: Order Comment: Speci men Type: BLOOD SPECIMENOrdering Facility: [facility] Address: [address] [place] [address] Performed By: #### 2 4323-8, ####[facility]ATORYCLIA [id number] [place] [id number] [place] CO2 [Moles/Vol] 17 mmol/L Low 22-30 [facility] Comment on above: Order Comment: Speci men Type: BLOOD SPECIMENOrdering Facility: [facility] Address: [address] [place] [address] Performed By: #### 2 4323-8, ####[facility]ATORYCLIA [id number] [place] [id number] [place] Creatinine [Mass/Vol] 2.35 mg/dL High 0.73-1.22 [facility] Comment on above: Order Comment: Speci men Type: BLOOD SPECIMENOrdering Facility: [facility] Address: [address] [place] [address] Performed By: #### 2 4323-8, ####[facility]ATORYCLIA [id number] [place] [id number] [facility] [place] Creatinine and Glomerular filtration rate.predicted panel (S/P/Bld) 30 mL/min/1.73m??? Low >=60 [facility] Comment on above: Order Comment: Speci men Type: BLOOD SPECIMENOrdering Facility: [facility] Address: [address] [place] [address] Result Comment: Leena mated Glomerular Filtration Rate [...] reflect actual GFR. Performed By: #### 2 432-8, ####[facility]ORATORYCLIA [id number] [place] [address] [place] Glucose [Mass/Vol] 131 mg/dL High 74-99 [facility] Comment on above: Order Comment: Jg valdez Type: BLOOD SPECIMENOrdering Facility: [facility] Address: [address] [place], [place] [id number] Result Comment: The [place] [employer] (ADA) provides guidance for cutoff [...] Standards of Medical Care in Diabetes 2016, [place] [employer]. Diabetes Care. 2016.39(Suppl 1). Performed By: #### 2 432-, ####[facility]ORATORYCLIA [id number] [place] [address] [place] Potassium [Moles/Vol] 4.4 mmol/L Normal 3.7-5.1 [facility] Comment on above: Order Comment: Jg valdez Type: BLOOD SPECIMENOrdering Facility: [facility] Address: [address] [place] [address] Performed By: #### 2 43212-10, ####[facility]ATORYCLIA [id number] [place] [address] [place] Protein [Mass/Vol] 5.9 g/dL Low 6.3-8.0 [facility] Comment on above: Order Comment: Speci men Type: BLOOD SPECIMENOrdering Facility: [facility] Address: [address] [place] [address] Performed By: #### 2 4323-8, ####[facility]ATORYCLIA [id number] [place] [id number] [place] OF [facility] Sodium [Moles/Vol] 136 mmol/L Normal 136-144 [facility] Comment on above: Order Comment: Speci men Type: BLOOD SPECIMENOrdering Facility: [facility] Address: [address] [place] [address] Performed By: #### 2 4323-8, ####[facility]ORATORYCLIA [id number] [place] [id number] [place] Urea nitrogen [Mass/Vol] 33 mg/dL High 9-24 [facility] Comment on above: Order Comment: Speci men Type: BLOOD SPECIMENOrdering Facility: [facility] Address: [address] [place] [address] Performed By: #### 2 4323-8, ####[facility]ATORYCLIA [id number] [address] [place] ECG COMPLETEon 02-16-2025 ECG COMPLETE Ventricular Rate : 120 BPM Atrial Rate : 120 BPM P-R Interval : 152 ms QRS Duration : 88 ms Q-T Interval : 306 ms QTC Calculation(Bazett) : 432 ms Calculated P Grand Chain : 35 degrees Calculated R Grand Chain : 6 degrees Calculated T Grand Chain : 45 degrees SINUS TACHYCARDIA POSSIBLE INFERIOR INFARCT , AGE UNDETERMINED CANNOT RULE OUT ANTERIOR INFARCT , AGE UNDETERMINED ABNORMAL ECG NO PREVIOUS ECGS AVAILABLE Confirmed by MAYKEL MANJARREZ MD ([id number]) on 02/20/2025 2:34:23 PM NAME : ANMOL REYNOLDS PID : [id number] : 1960 Gender : Male Race : ORD : [id number] Procedure Date : Feb 16 2025 19:16:55 Edit Date : Feb 20 2025 14:34:24 Diagnosis: SINUS TACHYCARDIA POSSIBLE INFERIOR INFARCT , AGE UNDETERMINED CANNOT RULE OUT ANTERIOR INFARCT , AGE UNDETERMINED ABNORMAL ECG NO PREVIOUS ECGS AVAILABLE Confirmed by MAYKEL MANJARREZ MD ([id number]) on 02/20/2025 2:34:23 PM Test Reason : Chest Pain Location : 4 : AKED EM Overread By : MAYKEL MANJARREZ MD Edited By : MAYKEL MANJARREZ MD Referred By : , Acquired by : LELAND AUGUST [facility] ED NOTEon 02-16-2025 ED NOTE HNO ID: [id number] Author: ROZ MIKE RN Service: ? Author Type: Registered Nurse Type: ED Notes Filed: 02/16/2025 23:23 Note Text: Icu resident at bedside talked with this RN about NG tube, this RN told to leave it in place for this time until further notice as it is not needed for anything significant at this time. [facility] ED NOTE HNO ID: [id number] Author: ROZ MIKE RN Service: ? Author Type: Registered Nurse Type: ED Notes Filed: 02/16/2025 21:56 Note Text: NG in right nare advanced as much as possible, per KUB, the NG is still not in stomach. MICU resident to assess when at bedside. [facility] ED NOTE HNO ID: [id number] Author: ROZ MIKE RN Service: ? Author Type: Registered Nurse Type: ED Notes Filed: 02/16/2025 22:06 Note Text: Mepilex applied to coccyx to prevent further skin berakdown. [facility] ED NOTE HNO ID: [id number] Author: ROZ MIKE RN Service: ? Author Type: Registered Nurse Type: ED Notes Filed: 02/16/2025 19:46 Note Text: Xray called at this time to confirm placement. [facility] ED NOTE HNO ID: [id number] Author: ROZ MIKE RN Service: ? Author Type: Registered Nurse Type: ED Notes Filed: 02/16/2025 19:44 Note Text: 100 mcg of fentanyl being administered at this time by LIBRADO Escamilla [facility] ED NOTE HNO ID: [id number] Author: ROZ MIKE RN Service: ? Author Type: Registered Nurse Type: ED Notes Filed: 02/16/2025 19:44 Note Text: Oxygen improved to 97%. [facility] ED NOTE HNO ID: [id number] Author: ROZ MIKE RN Service: ? Author Type: Registered Nurse Type: ED Notes Filed: 02/16/2025 19:44 Note Text: 7.5 tube placed at this time, bilateral breath sounds auscultated, ETCO2 31. 24 at the teeth. Pt oxygen 71% and HR 132. [facility] ED NOTE HNO ID: [id number] Author: ROZ MIKE RN Service: ? Author Type: Registered Nurse Type: ED Notes Filed: 02/16/2025 19:40 Note Text: 100 of rocuronium given at this time. [facility] ED NOTE HNO ID: [id number] Author: ROZ MIKE RN Service: ? Author Type: Registered Nurse Type: ED Notes Filed: 02/16/2025 19:39 Note Text: 30 of etomidate given at this time. [facility] ED NOTE HNO ID: [id number] Author: ROZ MIKE RN Service: ? Author Type: Registered Nurse Type: ED Notes Filed: 02/16/2025 19:38 Note Text: Levo tubing was clamped, levo decreased to 7 again at this time. [facility] ED NOTE HNO ID: [id number] Author: ROZ MIKE RN Service: ? Author Type: Registered Nurse Type: ED Notes Filed: 02/16/2025 19:36 Note Text: Preparing to intubate patient, using 30 of etomidate for intubation. [facility] ED NOTE HNO ID: [id number] Author: ROZ MIKE RN Service: ? Author Type: Registered Nurse Type: ED Notes Filed: 02/16/2025 19:36 Note Text: Levo increased to 10 at this time [facility] ED NOTE HNO ID: [id number] Author: ROZ MIKE RN Service: ? Author Type: Registered Nurse Type: ED Notes Filed: 02/16/2025 19:32 Note Text: Levophed started at 7 at this time. [facility] ED NOTE HNO ID: [id number] Author: ROZ MIKE RN Service: ? Author Type: Registered Nurse Type: ED Notes Filed: 02/16/2025 19:32 Note Text: Patient opening eyes at this time, but not following commands at this time. [facility] ED NOTE HNO ID: [id number] Author: ROZ MIKE RN Service: ? Author Type: Registered Nurse Type: ED Notes Filed: 02/16/2025 19:22 Note Text: Line placed in RAC was placed in artery, line removed. Pressure applied, no medications were administered through this access point. [facility] ED NOTE HNO ID: [id number] Author: ROZ MIKE RN Service: ? Author Type: Registered Nurse Type: ED Notes Filed: 02/16/2025 19:16 Note Text: Patient BIBA from the [facility] in [place] unresponsive. NO responsive to verbal stimuli, only to painful. Pt LKW was 1700, found unresponsive. [facility] ED NOTE HNO ID: [id number] Author: ROZ MIKE RN Service: ? Author Type: Registered Nurse Type: ED Notes Filed: 02/16/2025 19:15 Note Text: [facility] ED NOTE HNO ID: [id number] Author: ROZ MIKE RN Service: ? Author Type: Registered Nurse Type: ED Notes Filed: 02/16/2025 19:25 Note Text: 2L up at this time. 1 L LR and 1L NS. [facility] ED NOTE HNO ID: [id number] Author: ROZ MIKE RN Service: ? Author Type: Registered Nurse Type: ED Notes Filed: 02/16/2025 19:36 Note Text: Patient placed on zoll pads at this time [facility] ED PROV NOTEon 02-16-2025 ED PROV NOTE HNO ID: [id number] Author: KATHRIN MEHTA MD Service: Emergency Medicine [...] History Patient presents with: Unresponsive: [facility] from [facility]. Pt normally AANDOx4, but had a spinal cord injury resulting in need for nursing facility. Pt LKW was 1700 today. Arrives only arousable to pain, unable to follow commands. Arrives pale, on NRB, hypotensive, and tachycardic. Patient is a 64-year-old male who presents from [facility] for being unresponsive. Patient is a [...] PAST SURGICAL (more content not included)... Normal [facility] HISTORY PHYSICALon HISTORY PHYSICAL HNO ID: [id number] Author: HOWARD GAMA MD Service: Critical Care Author Type: Physician Type: H&P Filed: 02/17/2025 02:44 Note Text: [facility] [place] STAFF PHYSICIAN NOTE OF PERSONAL INVOLVEMENT IN [...] and tachycardic, eventually requiring vasopressors. Workup revealed KM, UTI, and multiple other findings. CT with [...] [facility] DATE of SERVICE: 02/16/2025 [facility] HISTORY PHYSICAL HNO ID: [id number] Author: HOWARD GAMA MD Service: Critical Care Author Type: Physician Type: H&P Filed: 02/17/2025 18:50 Note Text: [facility] HANDP PATIENT NAME: Anmol Gail REASON FOR ADMISSION:Septic shock Admission Date: 02/16/2025 [...] intubation. The patient initially presented to the [facility] ED on February 16, 2025 after being found unresponsive at his [facility] facility, last known well 1700 today. ED [...] Lactate (POCT) 2.4 ! UA: 02/16/2025 Color [place] ! Clarity Dense Turbid ! Glucose, Urine Negative Bilirubin, Urine Negative Ketones, Urine Negative Specific Upper[place], Ur 1.037 (H) Hemoglobin/Blood,Ur 3+ ! pH, [...] Neuropathy N (more content not included)... Normal [facility] Magnesium [Mass/Vol] 1.6 mg/dL Low 1.7-2.3 [facility] Comment on above: Order Comment: Speci men Type: BLOOD SPECIMENOrdering Facility: [facility] Address: [address] [place] [address] Performed By: #### 2 4323-8, 36224-2 ####[facility]ORATORYCLIA [id number] [address] Urinalysis complete panel (U )on 02-16-2025 Bacteria LM.HPF (Urine sed) [#/Area] Many Abnormal None Seen [facility] Comment on above: Order Comment: Speci men Type: URINE SPECIMENOrdering Facility: [facility] Address: [address] [place] [address] Performed By: #### 2 4356-8, 630-4 ####[facility]ATORYCLIA [id number] [address] [place] Bilirubin Ql (U) Negative Normal Negative [facility] Comment on above: Order Comment: Speci men Type: URINE SPECIMENOrdering Facility: [facility] Address: [address] [place] [address] Performed By: #### 2 4356-8, 630-4 ####[facility]ORATORYCLIA [id number] [address] Clarity (Unsp spec) Dense Turbid Abnormal Clear [facility] Comment on above: Order Comment: Speci men Type: URINE SPECIMENOrdering Facility: [facility] Address: [address] [place] [address] Performed By: #### 2 4356-8, 630-4 ####[facility]ATORYCLIA [id number] [address] Color (U) [place] Abnormal yellow [facility] Comment on above: Order Comment: Speci men Type: URINE SPECIMENOrdering Facility: [facility] Address: [address] [place] [address] Performed By: #### 2 4356-8, 630-4 ####[facility]ATORYCLIA [id number] [address] Epithelial cells LM.HPF (Urine sed) [#/Area] Moderate Abnormal None Seen [facility] Comment on above: Order Comment: Speci men Type: URINE SPECIMENOrdering Facility: [facility] Address: [address] [place] [address] Performed By: #### 2 4356-8, 630-4 ####[facility]ATORYCLIA [id number] [place], [place] [address] [place] [address] Glucose Test strip (U) [Mass/Vol] Negative Normal Trace, Negative [facility] Comment on above: Order Comment: Speci men Type: URINE SPECIMENOrdering Facility: [facility] Address: [address] [place] [address] Performed By: #### 2 4356-8, 630-4 ####[facility]ATORYCLIA [id number] [place] [address] [place] Hemoglobin Ql (U) 3+ Abnormal Negative, Trace [facility] Comment on above: Order Comment: Speci men Type: URINE SPECIMENOrdering Facility: [facility] Address: [address] [place] [address] Performed By: #### 2 4356-8, 630-4 ####[facility]ATORYCLIA [id number] [address] STATES OF [facility] Ketones Ql (U) Negative Normal Negative, Trace [facility] Comment on above: Order Comment: Speci men Type: URINE SPECIMENOrdering Facility: [facility] Address: [address] [place] [address] Performed By: #### 2 4356-8, 630-4 ####[facility]ATORYCLIA [id number] [place], [place] [address] [place] [address] Leukocyte esterase Test strip Ql (U) 500 Da/uL Abnormal Negative, 25 Da/uL [facility] Comment on above: Order Comment: Speci men Type: URINE SPECIMENOrdering Facility: [facility] Address: [address] [place] [address] Performed By: #### 2 4356-8, 630-4 ####[facility]ATORYCLIA [id number] [address] [place] Nitrite Ql (U) Negative Normal Negative [facility] Comment on above: Order Comment: Speci men Type: URINE SPECIMENOrdering Facility: [facility] Address: [address] [place] [address] Performed By: #### 2 4356-8, 630-4 ####[facility]ATORYCLIA [id number] [place] [address] [place] pH (U) 6.5 [pH] Normal 5.0-8.0 [facility] Comment on above: Order Comment: Speci men Type: URINE SPECIMENOrdering Facility: [facility] Address: [address] [place] [address] Performed By: #### 2 4356-8, 630-4 ####[facility]ATORYCLIA [id number] [address] [place] Protein (U) [Mass/Vol] 2+ Abnormal Trace , Negative [facility] Comment on above: Order Comment: Speci men Type: URINE SPECIMENOrdering Facility: [facility] Address: [address] [place] [address] Performed By: #### 2 4356-8, 630-4 ####[facility]ATORYCLIA [id number] [address] RBC LM.HPF (Urine sed) [#/Area] /[HPF] Abnormal 0-3 /HPF [facility] Comment on above: Order Comment: Speci men Type: URINE SPECIMENOrdering Facility: [facility] Address: [address] [place] [address] Performed By: #### 2 4356-8, 630-4 ####[facility]ATORYCLIA [id number] [address] [place] Specific gravity (U) [Rel density] 1.037 High 1.005-1.030 [facility] Comment on above: Order Comment: Speci men Type: URINE SPECIMENOrdering Facility: [facility] Address: [address] [place] [address] Performed By: #### 2 4356-8, 630-4 ####[facility]ATORYCLIA [id number] [address] Urobilinogen Ql (U) Normal Normal Normal [facility] Comment on above: Order Comment: Speci men Type: URINE SPECIMENOrdering Facility: [facility] Address: [address] [place], [place] [address] Performed By: #### 2 4356-8, 630-4 ####[facility]ATORYCLIA [id number] [address] WBC LM.HPF (Urine sed) [#/Area] /[HPF] Abnormal 0-5 /HPF [facility] Comment on above: Order Comment: Speci men Type: URINE SPECIMENOrdering Facility: [facility] Address: [address] [place], [place] [address] Performed By: #### 2 4356-8, 630-4 ####[facility]ORATORYCLIA [id number] [place] [id number] [facility] XR ABDOMEN 1V SUPINEon 02-16 XR ABDOMEN [...] EKG leads. No dilated gas-filled bowel loops. [facility] Lab Technician: [facility] Transcribe Date/Time: Feb 16 2025 10:58P Dictated by : LAURYN ELLINGTON MD This examination was interpreted and the report reviewed and electronically signed by: LAURYN ELLINGTON MD on Feb 16 2025 10:59PM EST [id number] Normal [facility] XR ABDOMEN 1V SUPINE * [...] abundance of colonic stool. Other details above. [facility] Lab Technician: [facility] Transcribe Date/Time: Feb 16 2025 9:11P Dictated by : KELSY CARDOZA MD This examination was interpreted and the report reviewed and electronically signed by: KELSY CARDOZA MD on Feb 16 2025 9:14PM EST [id number] Normal [facility] XR CHEST 1V FRONTALon 2024 [...] in the distal esophagus, suggest further advancement. [facility] Lab Technician: [facility] Transcribe Date/Time: Feb 16 2025 8:45P Dictated by : PATY US MD This examination was interpreted and the report reviewed and electronically signed by: PATY US MD on Feb 16 2025 8:47PM EST [id number] Normal [facility] Bilirubin Test strip Ql (U)O rdered By: Tab Dupont on 02-15-2025 Bilirubin Ql (U) Negative Negative [facility] Ketones Test strip Ql (U)Ord ered By: Tab Dupont on 02-15-2025 Ketones Ql (U) Negative Negative [facility] Microscopic analysis of urin e for red blood cells (RBC)Ordered By: Tab Dupont on 02-15-2025 Microscopic analysis of urine for red blood cells (RBC) 10-25 SEEN /hpf 0-5 [facility] Mucus LM Ql (Urine sed)Order ed By: Tab Dupont on 02-15-2025 Mucus Ql (Urine sed) 0 SEEN /hpf [facility] Nitrite Test strip Ql (U)Ord ered By: Tab Dupont on 02-15-2025 Nitrite Ql (U) Positive High Negative [facility] Protein Test strip Ql (U)Ord ered By: Tab Dupont on 02-15-2025 Protein Ql (U) 100 mg/dl High Negative [facility] Squamous epithelial cells de tection in urine sediment by light microscopyOrdered By: Tab Dupont on 02-15-2025 Epithelial cells.squamous LM Ql (Urine sed) 0 SEEN /hpf 0-5 [facility] Urinalysis, Completeon 02-15 RBC 10-25 SEEN Normal 0-5 [facility] Comment on above: Order Comment: 301.2 Performed By: #### L 501.6710, L101.9900, L501.8820 #### [facility] Laboratory [address] [place], [place], [id number] BACTERIA 2+ /hpf Normal None Seen [facility] Comment on above: Order Comment: 301.2 Performed By: #### L 501.6710, L101.9900, L501.8820 #### [facility] [address] [place], [address] WBC 25-50 SEEN Normal 0-5 [facility] Comment on above: Order Comment: 301.2 Performed By: #### L 501.6710, L101.9900, L501.8820 #### [facility] [address] [place], [address] EPI,SQUAMOUS 0 SEEN Normal 0-5 [facility] Comment on above: Order Comment: 301.2 Performed By: #### L 501.6710, L101.9900, L501.8820 #### [facility] [address] [place], [address] Mucus Ql (Urine sed) 0 SEEN Normal [facility] Comment on above: Order Comment: 301.2 Performed By: #### L 501.6710, L101.9900, L501.8820 #### [facility] [address] [place], [address] Urine clarityOrdered By: Regino Dupont on 02-15-2025 Clarity (U) Sl. Cloudy Clear [facility] Urine color determinationOrd ered By: Tab Dupont on 02-15-2025 Color (U) Yellow Yellow [facility] Urine cultureOrdered By: Regino Dupont on 02-15-2025 Bacteria identified Cx Nom (U) Citrobacter freundii Abnormal [facility] Bacteria identified Cx Nom (U) Providencia stuartii Abnormal [facility] Bacteria identified Cx Nom (U) Proteus mirabilis Abnormal [facility] Bacteria identified Cx Nom (U) Enterococcus faecalis Abnormal [facility] Urine glucose detectionOrder ed By: Tab Dupont on 02-15-2025 Glucose Ql (U) Normal mg/dl Normal [facility] Urine leukocyte esterase det ection by dipstickOrdered By: Tab Dupont on 02-15-2025 Leukocyte esterase Test strip Ql (U) 500 /ul High Negative [facility] Urine pHOrdered By: Tab cordova on 02-15-2025 pH (U) 6.5 [pH] 5.0 - 8.0 [facility] Urine sediment bacteria coun t by microscopy (number/high power field)Ordered By: Tab Dupont on 02-15-2025 Bacteria LM.HPF (Urine sed) [#/Area] 2 /[HPF] None Seen [facility] Urine specific gravity measu rementOrdered By: Tab Dupont on 02-15-2025 Specific gravity (U) [Rel density] 1.010 1.002-1.030 [facility] Urine urobilinogen measureme ntOrdered By: Tab Dupont on 02-15-2025 Urobilinogen Ql (U) Normal mg/dl Normal [facility] White blood cell countOrdere d By: Tab Dupont on 02-15-2025 White blood cell count 25-50 SEEN /hpf 0-5 [facility] CNOVon 01-31-2025 CNOV Office Visit (PLWDMR ) ANMOL REYNOLDS ([id number]) 1960 M Date Time Provider Department 01/31/25 [...] in motorized wheelchair Home Care Company/Nursing Facility: [facility] Consent captured for debridement per [...] BY PROVIDER: Anesthetic Used: N/A applied per warehouse unloader # 1 AND 2 Other procedure: Specimen [...] alginate AG Covered and secured with: [employer] [place] [employer] Other: COMPRESSION: N/A DME: Prism order date __ DME: [employer] , PH: [phone] SPECIAL NEEDS: Coordination of care N/A Emotional support N/A OR set-up N/A Culinary Intern N/A Incontinence needs N/A DISCHARGED in stable condition to: facility in motorized wheelchair PLAN/ORDERS: - Return to [facility] to see Milad Goodson MD in 6 weeks. - Blood work ordered please go to any the [facility] lab. - Please send patient with medication list at next appointment. - Continue aggressive nutritional support to assist wound healing - CAT Scans AND MRI need to be scheduled through Central Scheduling. Call [phone].(If applicable) EDUCATION: The patient/family was instructed how [...] the p (more content not included)... Normal [facility] Anion gap in Serum or Plasma Ordered By: Tab Dupont on 01-09-2025 Anion gap [Moles/Vol] 12 mmol/L 02-16 [facility] BUN/creatinine ratioOrdered By: Tab Dupont on 01-09-2025 Urea nitrogen/Creatinine [Mass ratio] 17.9 mg/mg 07-24 [facility] Basic Metabolic Profile (BMP )on 01-09-2025 BUN/CRE 17.9 RATIO Normal 07-24 [facility] Comment on above: Order Comment: 301.2 Performed By: #### L 101.9900, L100.0500, L500.4050, L501.6710 #### [facility] [address] [place], [address] Calcium [Mass/Vol] 8.7 mg/dL Normal 7.6-11.0 [facility] Comment on above: Order Comment: 301.2 Performed By: #### L 101.9900, L100.0500, L500.4050, L501.6710 #### [facility] [address] [place], [address] Chloride [Moles/Vol] 110 mmol/L High 98-108 [facility] Comment on above: Order Comment: 301.2 Performed By: #### L 101.9900, L100.0500, L500.4050, L501.6710 #### [facility] [address] [place], [address] CO2 [Moles/Vol] 19.2 mmol/L Low 21.0-32.0 [facility] Comment on above: Order Comment: 301.2 Performed By: #### L 101.9900, L100.0500, L500.4050, L501.6710 #### [facility] [address] [place], [address] Creatinine [Mass/Vol] 0.42 mg/dL Low 0.70-1.20 [facility] Comment on above: Order Comment: 301.2 Performed By: #### L 101.9900, L100.0500, L500.4050, L501.6710 #### [facility] [address] [place], [address] GAP 12 Normal 5-15 [facility] Comment on above: Order Comment: 301.2 Performed By: #### L 101.9900, L100.0500, L500.4050, L501.6710 #### [facility] [address] [place], [address] GFR/1.73 sq M.predicted among non-blacks MDRD (S/P/Bld) [Vol rate/Area] 121 mL/min/{1.73_m2} Normal >60 [facility] Comment on above: Order Comment: 301.2 Result Comment: mL/m in/1.73m2 CKD-EPI Creatinine Equation (2020) Performed By: #### L 101.9900, L100.0500, L500.4050, L501.6710 #### [facility] [address] [place], [address] Glucose [Mass/Vol] 120 mg/dL High 70-99 [facility] Comment on above: Order Comment: 301.2 Performed By: #### L 101.9900, L100.0500, L500.4050, L501.6710 #### [facility] [address] [place], [address] Potassium [Moles/Vol] 4.0 mmol/L Normal 3.3-5.1 [facility] Comment on above: Order Comment: 301.2 Result Comment: Hemo lysis present, Results??could be affected. ?? Performed By: #### L 101.9900, L100.0500, L500.4050, L501.6710 #### [facility] [address] [place], [address] Sodium [Moles/Vol] 141 mmol/L Normal 133-145 [facility] Comment on above: Order Comment: 301.2 Performed By: #### L 101.9900, L100.0500, L500.4050, L501.6710 #### [facility] [address] [place], [address] Urea nitrogen [Mass/Vol] 8 mg/dL Normal 4-19 [facility] Comment on above: Order Comment: 301.2 Performed By: #### L 101.9900, L100.0500, L500.4050, L501.6710 #### [facility] [address] [place], [address] CBC-Complete Blood Cnt No Di ffon 01-09-2025 Erythrocyte distribution width (RBC) [Ratio] 13.9 % Normal 11.6-14.6 [facility] Comment on above: Order Comment: 301.2 Performed By: #### L 101.9900, L100.0500, L500.4050, L501.6710 #### [facility] [address] [place], [address] Hematocrit (Bld) [Volume fraction] 39.3 % Low 40-54 [facility] Comment on above: Order Comment: 301.2 Performed By: #### L 101.9900, L100.0500, L500.4050, L501.6710 #### [facility] [address] [place], [address] Hemoglobin (Bld) [Mass/Vol] 13.1 g/dL Normal 13.0-16.5 [facility] Comment on above: Order Comment: 301.2 Performed By: #### L 101.9900, L100.0500, L500.4050, L501.6710 #### [facility] [address] [place], [address] MCH (RBC) [Entitic mass] 30.9 pg Normal 27.0-32.0 [facility] Comment on above: Order Comment: 301.2 Performed By: #### L 101.9900, L100.0500, L500.4050, L501.6710 #### [facility] [address] [place], [address] MCHC (RBC) [Mass/Vol] 33.3 g/dL Normal 32-36 [facility] Comment on above: Order Comment: 301.2 Performed By: #### L 101.9900, L100.0500, L500.4050, L501.6710 #### [facility] [address] [place], [address] MCV (RBC) [Entitic vol] 92.7 fL Normal 80-94 [facility] Comment on above: Order Comment: 301.2 Performed By: #### L 101.9900, L100.0500, L500.4050, L501.6710 #### [facility] [address] [place], [address] Platelet mean volume (Bld) [Entitic vol] 11.1 fL Normal 6.2-12.0 [facility] Comment on above: Order Comment: 301.2 Performed By: #### L 101.9900, L100.0500, L500.4050, L501.6710 #### [facility] [address] [place], [address] Platelets (Bld) [#/Vol] 255 10*3/uL Normal 150-450 [facility] Comment on above: Order Comment: 301.2 Performed By: #### L 101.9900, L100.0500, L500.4050, L501.6710 #### [facility] [address] [place], [address] RBC (Bld) [#/Vol] 4.24 10*6/uL Low 4.6-6.2 [facility] Comment on above: Order Comment: 301.2 Performed By: #### L 101.9900, L100.0500, L500.4050, L501.6710 #### [facility] [address] [place], [address] RDW SD 47.3 fl High 35.1-43.9 [facility] Comment on above: Order Comment: 301.2 Performed By: #### L 101.9900, L100.0500, L500.4050, L501.6710 #### [facility] [address] [place], [address] WBC (Bld) [#/Vol] 7.1 10*3/uL Normal 4.4-11.0 [facility] Comment on above: Order Comment: 301.2 Performed By: #### L 101.9900, L100.0500, L500.4050, L501.6710 #### [facility] [address] [place], [address] Carbon dioxide, total [Moles /volume] in Central venous bloodOrdered By: Tab Dupont on 01-09-2025 CO2 [Moles/Vol] 19.2 mmol/L Low 21.0-32.0 [facility] Chloride assayOrdered By: Vinh Lehman on 01-09-2025 Chloride [Moles/Vol] 110 mmol/L High 98-108 [facility] Erythrocyte distribution wid th ratioOrdered By: Tab Dupont on 01-09-2025 Erythrocyte distribution width (RBC) [Ratio] 13.9 % 11.6-14.6 [facility] Erythrocyte distribution wid th standard deviationOrdered By: Tab Dupont on 01-09-2025 Erythrocyte distribution width (RBC) [Ratio] 47.3 fl High 35.1-43.9 [facility] Glomerular filtration rate ( GFR) estimation/1.73 sq m using serum, plasma, or whole bOrdered By: Tab Dupont on 01-09-2025 GFR/1.73 sq M.predicted among non-blacks MDRD (S/P/Bld) [Vol rate/Area] 121 mL/min/{1.73_m2} >60 [facility] Comment on above: mL/min/1.73m2 CKD-EP I Creatinine Equation (2020) Hematocrit Auto (Bld) [Volum e fraction]Ordered By: Tab Dupont on 01-09-2025 Hematocrit (Bld) [Volume fraction] 39.3 % Low 40-54 [facility] Hemoglobin measurementOrdere d By: Tab Dupont on 01-09-2025 Hemoglobin (Bld) [Mass/Vol] 13.1 g/dL 13.0-16.5 [facility] MCV (mean corpuscular volume ) determinationOrdered By: Tab Dupont on 01-09-2025 MCV (RBC) [Entitic vol] 92.7 fL 80-94 [facility] Mean corpuscular hemoglobin (MCH) determinationOrdered By: Tab Dupont on 01-09-2025 MCH (RBC) [Entitic mass] 30.9 pg 27.0-32.0 [facility] Mean corpuscular hemoglobin concentration (MCHC) determinationOrdered By: Tab Dupont on 01-09-2025 MCHC (RBC) [Mass/Vol] 33.3 g/dL 32-36 [facility] Mean platelet volume determi nationOrdered By: Tab Dupont on 01-09-2025 Platelet mean volume (Bld) [Entitic vol] 11.1 fL 6.2-12.0 [facility] Platelet countOrdered By: Vinh Lehman on 01-09-2025 Platelets (Bld) [#/Vol] 255 10*3/uL 150-450 [facility] Potassium measurement (mass/ volume)Ordered By: Tab Dupont on 01-09-2025 Potassium (Unsp spec) [Mass/Vol] 4.0 mmol/L 3.3-5.1 [facility] Comment on above: Hemolysis present, R esults could be affected. RBC Auto (Bld) [#/Vol]Ordere d By: Tab Dupont on 01-09-2025 RBC (Bld) [#/Vol] 4.24 10*6/uL Low 4.6-6.2 [facility] Serum creatinine measurement (mass/volume)Ordered By: Tab Dupont on 01-09-2025 Creatinine [Mass/Vol] 0.42 mg/dL Low 0.70-1.20 [facility] Serum glucose measurement (m ass/volume)Ordered By: Tab Dupont on 01-09-2025 Glucose [Mass/Vol] 120 mg/dL High 70-99 [facility] Serum or plasma calcium randall urement (mass/volume)Ordered By: Tab Dupont on 01-09-2025 Calcium [Mass/Vol] 8.7 mg/dL 7.6-11.0 [facility] Serum or plasma urea nitroge n measurement (mass/volume)Ordered By: Tab Dupont on 01-09-2025 Urea nitrogen [Mass/Vol] 8 mg/dL 4-19 [facility] Sodium levelOrdered By: Omar Dupont on 01-09-2025 Sodium [Moles/Vol] 141 mmol/L 133-145 [facility] White blood cell (WBC) count Ordered By: Tab Dupont on 01-09-2025 WBC (Bld) [#/Vol] 7.1 10*3/uL 4.4-11.0 [facility] MRI SACRUM/COCCYX WO/W IVCON on 01-04-2025 MRI SACRUM/COCCYX WO/W IVCON * * *Final Report* * * DATE OF EXAM: Jan 04 2025 9:45AM [facility] 0236 - MRI SACRUM/COCCYX WO/W IVCON [...] the adjacent S5 segment of the sacrum. [facility] Lab Technician: CECILIA Transcribe Date/Time: Jan 06 2025 1:16P Dictated by : COLE SHIPMAN DO This examination was interpreted and the report reviewed and electronically signed by: COLE SHIPMAN DO on Jan 06 2025 1:36PM EST [id number] Normal [facility] Anion gap in Serum or Plasma Ordered By: Tab Dupont on 12-07-2024 Anion gap [Moles/Vol] 10 mmol/L - [facility] BUN/creatinine ratioOrdered By: Tab Dupont on 12-07-2024 Urea nitrogen/Creatinine [Mass ratio] 20.1 mg/mg High 07-24 [facility] Basic Metabolic Profile (BMP )on 12-07-2024 BUN/CRE 20.1 RATIO High - [facility] Comment on above: Order Comment: 301.2 Performed By: #### L 501.6710, L101.9900, [id number] #### [facility] [address] [place], [address] Calcium [Mass/Vol] 8.6 mg/dL Normal 7.6-11.0 [facility] Comment on above: Order Comment: 301.2 Performed By: #### L [id number], L101.9900, [id number] #### [facility] [address] [place], [address] Chloride [Moles/Vol] 104 mmol/L Normal 98-108 [facility] Comment on above: Order Comment: 301.2 Performed By: #### L 501.6710, L101.9900, [id number] #### [facility] [address] [place], [address] CO2 [Moles/Vol] 21.3 mmol/L Normal 21.0-32.0 [facility] Comment on above: Order Comment: 301.2 Performed By: #### L [id number], L101.9900, [id number] #### [facility] [address] [place], [address] Creatinine [Mass/Vol] 0.47 mg/dL Low 0.70-1.20 [facility] Comment on above: Order Comment: 301.2 Performed By: #### L [id number], L101.9900, [id number] #### [facility] [address] [place], [address] GAP 10 Normal 5-15 [facility] Comment on above: Order Comment: 301.2 Performed By: #### L [id number], L101.9900, [id number] #### [facility] [address] [place], [address] GFR/1.73 sq M.predicted among non-blacks MDRD (S/P/Bld) [Vol rate/Area] 117 mL/min/{1.73_m2} Normal >60 [facility] Comment on above: Order Comment: 301.2 Result Comment: mL/m in/1.73m2 CKD-EPI Creatinine Equation (2020) Performed By: #### L 501.6710, L101.9900, [id number] #### [facility] [address] [place], [address] Glucose [Mass/Vol] 194 mg/dL High 70-99 [facility] Comment on above: Order Comment: 301.2 Performed By: #### L 501.6710, L101.9900, [id number] #### [facility] [address] [place], [address] Potassium [Moles/Vol] 4.3 mmol/L Normal 3.3-5.1 [facility] Comment on above: Order Comment: 301.2 Performed By: #### L 501.6710, L101.9900, [id number] #### [facility] [address] [place], [address] Sodium [Moles/Vol] 136 mmol/L Normal 133-145 [facility] Comment on above: Order Comment: 301.2 Performed By: #### L 501.6710, L101.9900, [id number] #### [facility] [address] [place], [address] Urea nitrogen [Mass/Vol] 9 mg/dL Normal 4-19 [facility] Comment on above: Order Comment: 301.2 Performed By: #### L 501.6710, L101.9900, [id number] #### [facility] [address] [place], [address] CBC-Complete Blood Cnt No Di ffon 12-07-2024 Erythrocyte distribution width (RBC) [Ratio] 14.0 % Normal 11.6-14.6 [facility] Comment on above: Order Comment: 301.2 Performed By: #### L 501.6710, L101.9900, [id number] #### [facility] [address] [place], [address] Hematocrit (Bld) [Volume fraction] 38.2 % Low 40-54 [facility] Comment on above: Order Comment: 301.2 Performed By: #### L 501.6710, L101.9900, [id number] #### [facility] [address] [place], [address] Hemoglobin (Bld) [Mass/Vol] 12.8 g/dL Low 13.0-16.5 [facility] Comment on above: Order Comment: 301.2 Performed By: #### L 501.6710, L101.9900, [id number] #### [facility] [address] [place], [address] MCH (RBC) [Entitic mass] 30.9 pg Normal 27.0-32.0 [facility] Comment on above: Order Comment: 301.2 Performed By: #### L 501.6710, L101.9900, [id number] #### [facility] [address] [place], [address] MCHC (RBC) [Mass/Vol] 33.5 g/dL Normal 32-36 [facility] Comment on above: Order Comment: 301.2 Performed By: #### L 501.6710, L101.9900, [id number] #### [facility] [address] [place], [address] MCV (RBC) [Entitic vol] 92.3 fL Normal 80-94 [facility] Comment on above: Order Comment: 301.2 Performed By: #### L 501.6710, L101.9900, [id number] #### [facility] [address] [place], [address] Platelet mean volume (Bld) [Entitic vol] 10.5 fL Normal 6.2-12.0 [facility] Comment on above: Order Comment: 301.2 Performed By: #### L 501.6710, L101.9900, [id number] #### [facility] [address] [place], [address] Platelets (Bld) [#/Vol] 241 10*3/uL Normal 150-450 [facility] Comment on above: Order Comment: 301.2 Performed By: #### L 501.6710, L101.9900, [id number] #### [facility] [address] [place], [address] RBC (Bld) [#/Vol] 4.14 10*6/uL Low 4.6-6.2 [facility] Comment on above: Order Comment: 301.2 Performed By: #### L 501.6710, L101.9900, [id number] #### [facility] [address] [place], [address] RDW SD 47.9 fl High 35.1-43.9 [facility] Comment on above: Order Comment: 301.2 Performed By: #### L 501.6710, L101.9900, [id number] #### [facility] [address] [place], [address] WBC (Bld) [#/Vol] 6.6 10*3/uL Normal 4.4-11.0 [facility] Comment on above: Order Comment: 301.2 Performed By: #### L 501.6710, L101.9900, [id number] #### [facility] [address] [place], [address] Carbon dioxide, total [Moles /volume] in Central venous bloodOrdered By: Tab Dupont on 12-07-2024 CO2 [Moles/Vol] 21.3 mmol/L 21.0-32.0 [facility] Chloride assayOrdered By: Vinh Lehman on 12-07-2024 Chloride [Moles/Vol] 104 mmol/L 98-108 [facility] Erythrocyte distribution wid th ratioOrdered By: Tab Dupont on 12-07-2024 Erythrocyte distribution width (RBC) [Ratio] 14.0 % 11.6-14.6 [facility] Erythrocyte distribution wid th standard deviationOrdered By: Tab Dupont on 12-07-2024 Erythrocyte distribution width (RBC) [Entitic vol] 47.9 fL High 35.1-43.9 [facility] Erythrocyte distribution width (RBC) [Ratio] 47.9 fl High 35.1-43.9 [facility] GFR/1.73 sq M.predicted trish g non-blacks MDRD (S/P/Bld) [Vol rate/Area]Ordered By: Tab Dupont on 12-07-2024 Estimated GFR (MDRD) Non-Af Amer 117 >60 [facility] Comment on above: mL/min/1.73m2 CKD-EP I Creatinine Equation (2020) Glomerular filtration rate ( GFR) estimation/1.73 sq m using serum, plasma, or whole bOrdered By: Tab Dupont on 12-07-2024 GFR/1.73 sq M.predicted among non-blacks MDRD (S/P/Bld) [Vol rate/Area] 117 mL/min/{1.73_m2} >60 [facility] Comment on above: mL/min/1.73m2 CKD-EP I Creatinine Equation (2020) Hematocrit Auto (Bld) [Volum e fraction]Ordered By: Tab Dupont on 12-07-2024 Hematocrit (Bld) [Volume fraction] 38.2 % Low 40-54 [facility] Hemoglobin measurementOrdere d By: Tab Dupont on 12-07-2024 Hemoglobin (Bld) [Mass/Vol] 12.8 g/dL Low 13.0-16.5 [facility] MCV (mean corpuscular volume ) determinationOrdered By: Tab Dupont on 12-07-2024 MCV (RBC) [Entitic vol] 92.3 fL 80-94 [facility] Mean corpuscular hemoglobin (MCH) determinationOrdered By: Tab Dupont on 12-07-2024 MCH (RBC) [Entitic mass] 30.9 pg 27.0-32.0 [facility] Mean corpuscular hemoglobin concentration (MCHC) determinationOrdered By: Tab Dupont on 12-07-2024 MCHC (RBC) [Mass/Vol] 33.5 g/dL 32-36 [facility] Mean platelet volume determi nationOrdered By: Tab Dupont on 12-07-2024 Platelet mean volume (Bld) [Entitic vol] 10.5 fL 6.2-12.0 [facility] Platelet countOrdered By: Vinh Lehman on 12-07-2024 Platelets (Bld) [#/Vol] 241 10*3/uL 150-450 [facility] Potassium (Unsp spec) [Mass/ Vol]Ordered By: Tab Dupont on 12-07-2024 Potassium [Moles/Vol] 4.3 mmol/L 3.3-5.1 [facility] Potassium measurement (mass/ volume)Ordered By: Tab Dupont on 12-07-2024 Potassium (Unsp spec) [Mass/Vol] 4.3 mmol/L 3.3-5.1 [facility] RBC Auto (Bld) [#/Vol]Ordere d By: Tab Dupont on 12-07-2024 RBC (Bld) [#/Vol] 4.14 10*6/uL Low 4.6-6.2 [facility] Serum creatinine measurement (mass/volume)Ordered By: Tab Dupont on 12-07-2024 Creatinine [Mass/Vol] 0.47 mg/dL Low 0.70-1.20 [facility] Serum glucose measurement (m ass/volume)Ordered By: Tab Dupont on 12-07-2024 Glucose [Mass/Vol] 194 mg/dL High 70-99 [facility] Serum or plasma calcium randall urement (mass/volume)Ordered By: Tab Dupont on 12-07-2024 Calcium [Mass/Vol] 8.6 mg/dL 7.6-11.0 [facility] Serum or plasma urea nitroge n measurement (mass/volume)Ordered By: Tab Dupont on 12-07-2024 Urea nitrogen [Mass/Vol] 9 mg/dL 4-19 [facility] Sodium levelOrdered By: Omar Dupont on 12-07-2024 Sodium [Moles/Vol] 136 mmol/L 133-145 [facility] White blood cell (WBC) count Ordered By: Tab Dupont on 12-07-2024 WBC (Bld) [#/Vol] 6.6 10*3/uL 4.4-11.0 [facility] Urine Cultureon 12-02-2024 [facility] STRAIGHT CATH Copy of report sent to Infection Control Printer [id number] 12/02/24 1017 JIM. Urine Culture RESULTS CALLED TO LUKASZ Batista 12/02/24 1021 Erika Rosario. REPORT READ BACK BY . Citrobacter freundii [place] Count >100,000 Providencia stuartii Providencia stuartii MARKER [...] R Vancomycin Islt HARINDER 1 S Normal [facility] Comment on above: Performed By: #### L 101.9900, L100.0500, L500.4050, L501.6710 #### [facility] [address] [place], [address] BUN/creatinine ratioOrdered By: Tab Dupont on 11-30-2024 Urea nitrogen/Creatinine [Mass ratio] 23.9 mg/mg High 10-20 [facility] Basic Metabolic Profile (BMP )on 11-30-2024 Anion gap [Moles/Vol] 9 mmol/L Normal 5-15 [facility] Comment on above: Order Comment: 301.2 Performed By: #### L 501.6710, L101.9900, [id number] #### [facility] [address] [place], [address] BUN/CRE 23.9 RATIO High 10-20 [facility] Comment on above: Order Comment: 301.2 Performed By: #### L 501.6710, L101.9900, [id number] #### [facility] [address] [place], [address] Calcium [Mass/Vol] 8.4 mg/dL Normal 7.6-11.0 [facility] Comment on above: Order Comment: 301.2 Performed By: #### L 501.6710, L101.9900, [id number] #### [facility] [address] [place], [address] Chloride [Moles/Vol] 105 mmol/L Normal 96-108 [facility] Comment on above: Order Comment: 301.2 Performed By: #### L 501.6710, L101.9900, [id number] #### [facility] [address] [place], [address] CO2 [Moles/Vol] 22.7 mmol/L Normal 22.0-29.0 [facility] Comment on above: Order Comment: 301.2 Performed By: #### L 501.6710, L101.9900, [id number] #### [facility] [address] [place], [address] Creatinine [Mass/Vol] 0.4 mg/dL Low 0.8-1.3 [facility] Comment on above: Order Comment: 301.2 Performed By: #### L 501.6710, L101.9900, [id number] #### [facility] [address] [place], [address] GFR/1.73 sq M.predicted among non-blacks MDRD (S/P/Bld) [Vol rate/Area] 120 mL/min/{1.73_m2} Normal >60 [facility] Comment on above: Order Comment: 301.2 Result Comment: mL/m in/1.73m2 CKD-EPI Creatinine Equation (2020) Performed By: #### L 501.6710, L101.9900, [id number] #### [facility] [address] [place], [address] Glucose [Mass/Vol] 170 mg/dL High 70-99 [facility] Comment on above: Order Comment: 301.2 Performed By: #### L 501.6710, L101.9900, [id number] #### [facility] [address] [place], [address] Potassium [Moles/Vol] 3.8 mmol/L Normal 3.3-5.1 [facility] Comment on above: Order Comment: 301.2 Performed By: #### L 501.6710, L101.9900, [id number] #### [facility] [address] [place], [address] Sodium [Moles/Vol] 137 mmol/L Normal 133-145 [facility] Comment on above: Order Comment: 301.2 Performed By: #### L 501.6710, L101.9900, [id number] #### [facility] [address] [place], [address] Urea nitrogen [Mass/Vol] 10 mg/dL Normal 4-19 [facility] Comment on above: Order Comment: 301.2 Performed By: #### L 501.6710, L101.9900, [id number] #### [facility] [address] [place], [address] CBC-Complete Blood Cnt No Di ffon 11-30-2024 Erythrocyte distribution width (RBC) [Ratio] 13.7 % Normal 11.6-14.6 [facility] Comment on above: Order Comment: 301.2 Performed By: #### L 501.6710, L101.9900, [id number] #### [facility] [address] [place], [address] Hematocrit (Bld) [Volume fraction] 37.1 % Low 40-54 [facility] Comment on above: Order Comment: 301.2 Performed By: #### L 501.6710, L101.9900, [id number] #### [facility] [address] [place], [address] Hemoglobin (Bld) [Mass/Vol] 12.0 g/dL Low 13.0-16.5 [facility] Comment on above: Order Comment: 301.2 Performed By: #### L 501.6710, L101.9900, [id number] #### [facility] [address] [place], [address] MCH (RBC) [Entitic mass] 29.9 pg Normal 27.0-32.0 [facility] Comment on above: Order Comment: 301.2 Performed By: #### L 501.6710, L101.9900, [id number] #### [facility] [address] [place], [address] MCHC (RBC) [Mass/Vol] 32.3 g/dL Normal 32-36 [facility] Comment on above: Order Comment: 301.2 Performed By: #### L 501.6710, L101.9900, [id number] #### [facility] [address] [place], [address] MCV (RBC) [Entitic vol] 92.5 fL Normal 80-94 [facility] Comment on above: Order Comment: 301.2 Performed By: #### L [id number], L101.9900, [id number] #### [facility] [address] [place], [address] Platelet mean volume (Bld) [Entitic vol] 11.1 fL Normal 6.2-12.0 [facility] Comment on above: Order Comment: 301.2 Performed By: #### L 501.6710, L101.9900, [id number] #### [facility] [address] [place], [address] Platelets (Bld) [#/Vol] 230 10*3/uL Normal 150-450 [facility] Comment on above: Order Comment: 301.2 Performed By: #### L [id number], L101.9900, [id number] #### [facility] [address] [place], [address] RBC (Bld) [#/Vol] 4.01 10*6/uL Low 4.6-6.2 [facility] Comment on above: Order Comment: 301.2 Performed By: #### L [id number], L101.9900, [id number] #### [facility] [address] [place], [address] RDW SD 46.8 fl High 35.1-43.9 [facility] Comment on above: Order Comment: 301.2 Performed By: #### L 501.6710, L101.9900, [id number] #### [facility] [address] [place], [place], [address] WBC (Bld) [#/Vol] 6.3 10*3/uL Normal 4.4-11.0 [facility] Comment on above: Order Comment: 301.2 Performed By: #### L 501.6710, L101.9900, [id number] #### [facility] [address] [place], [address] Carbon dioxide measurementOr dered By: Tab Dupont on 11-30-2024 CO2 [Moles/Vol] 22.7 mmol/L 22.0-29.0 [facility] Chloride measurementOrdered By: Tab Dupont on 11-30-2024 Chloride [Moles/Vol] 105 mmol/L 96-108 [facility] Creatinine [Moles/Vol]Ordere d By: Tab Dupont on 11-30-2024 Creatinine [Mass/Vol] 0.4 mg/dL Low 0.8-1.3 [facility] Erythrocyte distribution wid th ratioOrdered By: Tab Dupont on 11-30-2024 Erythrocyte distribution width (RBC) [Ratio] 13.7 % 11.6-14.6 [facility] Erythrocyte distribution wid th standard deviationOrdered By: Tab Dupont on 11-30-2024 Erythrocyte distribution width (RBC) [Entitic vol] 46.8 fL High 35.1-43.9 [facility] Erythrocyte distribution width (RBC) [Ratio] 46.8 fl High 35.1-43.9 [facility] GFR/1.73 sq M.predicted trish g non-blacks MDRD (S/P/Bld) [Vol rate/Area]Ordered By: Tab Dupont on 11-30-2024 Estimated GFR (MDRD) Non-Af Amer 120 >60 [facility] Comment on above: mL/min/1.73m2 CKD-EP I Creatinine Equation (2020) Glomerular filtration rate ( GFR) estimation/1.73 sq m using serum, plasma, or whole bOrdered By: Tab Dupont on 11-30-2024 GFR/1.73 sq M.predicted among non-blacks MDRD (S/P/Bld) [Vol rate/Area] 120 mL/min/{1.73_m2} >60 [facility] Comment on above: mL/min/1.73m2 CKD-EP I Creatinine Equation (2020) Hematocrit Auto (Bld) [Volum e fraction]Ordered By: Tab Dupont on 11-30-2024 Hematocrit (Bld) [Volume fraction] 37.1 % Low 40-54 [facility] Hemoglobin measurementOrdere d By: Tab Dupont on 11-30-2024 Hemoglobin (Bld) [Mass/Vol] 12.0 g/dL Low 13.0-16.5 [facility] MCV (mean corpuscular volume ) determinationOrdered By: Tab Dupont on 11-30-2024 MCV (RBC) [Entitic vol] 92.5 fL 80-94 [facility] Mean corpuscular hemoglobin (MCH) determinationOrdered By: Tab Dupont on 11-30-2024 MCH (RBC) [Entitic mass] 29.9 pg 27.0-32.0 [facility] Mean corpuscular hemoglobin concentration (MCHC) determinationOrdered By: Tab Dupont on 11-30-2024 MCHC (RBC) [Mass/Vol] 32.3 g/dL 32-36 [facility] Mean platelet volume determi nationOrdered By: Tab Dupont on 11-30-2024 Platelet mean volume (Bld) [Entitic vol] 11.1 fL 6.2-12.0 [facility] Platelet countOrdered By: Vinh Lehman on 11-30-2024 Platelets (Bld) [#/Vol] 230 10*3/uL 150-450 [facility] RBC Auto (Bld) [#/Vol]Ordere d By: Tab Dupont on 11-30-2024 RBC (Bld) [#/Vol] 4.01 10*6/uL Low 4.6-6.2 [facility] Serum glucose measurement (m ass/volume)Ordered By: Tab Dupont on 11-30-2024 Glucose [Mass/Vol] 170 mg/dL High 70-99 [facility] Serum or plasma anion gap de termination (moles/volume)Ordered By: Tab Dupont on 11-30-2024 Anion gap [Moles/Vol] 9 mmol/L 5-15 [facility] Serum or plasma calcium randall urement (mass/volume)Ordered By: Tab Dupont on 11-30-2024 Calcium [Mass/Vol] 8.4 mg/dL 7.6-11.0 [facility] Serum or plasma creatinine m easurement (moles/volume)Ordered By: Tab Dupont on 11-30-2024 Creatinine [Moles/Vol] 0.4 mg/dL Low 0.8-1.3 [facility] Serum or plasma potassium me asurementOrdered By: Tab Dupont on 11-30-2024 Potassium [Moles/Vol] 3.8 mmol/L 3.3-5.1 [facility] Serum or plasma sodium measu rement (moles/volume)Ordered By: Tab Dupont on 11-30-2024 Sodium [Moles/Vol] 137 mmol/L 133-145 [facility] Serum or plasma urea nitroge n measurement (mass/volume)Ordered By: Tab Dupont on 11-30-2024 Urea nitrogen [Mass/Vol] 10 mg/dL 4-19 [facility] White blood cell (WBC) count Ordered By: Tab Dupont on 11-30-2024 WBC (Bld) [#/Vol] 6.3 10*3/uL 4.4-11.0 [facility] Bilirubin Test strip Ql (U)O rdered By: Daisy Costello on 11-29-2024 Bilirubin Ql (U) Negative Negative [facility] Epithelial cells.squamous LM Ql (Urine sed)Ordered By: Daisy Costello on 11-29-2024 Epithelial cells.squamous LM.HPF (Urine sed) [#/Area] 0 /[HPF] 0-5 [facility] Glucose Ql (U)Ordered By: Jose Costello on 11-29-2024 Urine Glucose (UA) Normal mg/dl Normal [facility] Ketones Test strip Ql (U)Ord ered By: Daisy Costello on 11-29-2024 Ketones Ql (U) Negative Negative [facility] Microscopic analysis of urin e for red blood cells (RBC)Ordered By: Daisy Costello on 11-29-2024 Microscopic analysis of urine for red blood cells (RBC) 10-25 SEEN /hpf 0-5 [facility] Urine RBC 10-25 SEEN /hpf 0-5 [facility] Mucus LM Ql (Urine sed)Order ed By: Daisy Costello on 11-29-2024 Mucus Ql (Urine sed) 0 SEEN /hpf [facility] Nitrite Test strip Ql (U)Ord ered By: Daisy Costello on 11-29-2024 Nitrite Ql (U) Positive High Negative [facility] Protein Test strip Ql (U)Ord ered By: Daisy Costello on 11-29-2024 Protein Ql (U) 100 mg/dl High Negative [facility] Squamous epithelial cells de tection in urine sediment by light microscopyOrdered By: Daisy Costello on 11-29-2024 Epithelial cells.squamous LM Ql (Urine sed) 0 SEEN /hpf 0-5 [facility] Urinalysis, Completeon 11-29 BACTERIA 1+ /hpf Normal None Seen [facility] Comment on above: Order Comment: 301.2 Performed By: #### L 101.9900, L100.0500, L500.4050, L501.6710 #### [facility] [address] [place], [address] RBC 10-25 SEEN Normal 0- [facility] Comment on above: Order Comment: 301.2 Performed By: #### L 101.9900, L100.0500, L500.4050, L501.6710 #### [facility] [address] [place], [address] WBC >100 SEEN Normal 0-5 [facility] Comment on above: Order Comment: 301.2 Performed By: #### L 101.9900, L100.0500, L500.4050, L501.6710 #### [facility] [address] [place], [address] EPI,SQUAMOUS 0 SEEN Normal 0-5 [facility] Comment on above: Order Comment: 301.2 Performed By: #### L 101.9900, L100.0500, L500.4050, L501.6710 #### [facility] [address] [place], [address] Mucus Ql (Urine sed) 0 SEEN Normal [facility] Comment on above: Order Comment: 301.2 Performed By: #### L 101.9900, L100.0500, L500.4050, L501.6710 #### [facility] [address] [place], [address] Urine blood detectionOrdered By: Daisy Costello on 11-29-2024 Urine Occult Blood 250 /ul High Negative [facility] Urine clarityOrdered By: Ward Costello on 11-29-2024 Clarity (U) Cloudy Clear [facility] Urine color determinationOrd ered By: Daisy Costello on 11-29-2024 Color (U) Yellow Yellow [facility] Urine cultureOrdered By: Ward Costello on 11-29-2024 Bacteria identified Cx Nom (U) Citrobacter freundii Abnormal [facility] Bacteria identified Cx Nom (U) Providencia stuartii Abnormal [facility] Bacteria identified Cx Nom (U) Enterococcus faecalis Abnormal [facility] Bacteria identified Cx Nom (U) Citrobacter freundii Abnormal [facility] Bacteria identified Cx Nom (U) Providencia stuartii Abnormal [facility] Bacteria identified Cx Nom (U) Enterococcus faecalis Abnormal [facility] Urine glucose detectionOrder ed By: Daisy Costello on 11-29-2024 Glucose Ql (U) Normal mg/dl Normal [facility] Urine leukocyte esterase det ection by dipstickOrdered By: Daisy Costello on 11-29-2024 Leukocyte esterase Test strip Ql (U) 500 /ul High Negative [facility] Urine pHOrdered By: Colin on 11-29-2024 pH (U) 6.5 [pH] 5.0 - 8.0 [facility] Urine sediment bacteria coun t by microscopy (number/high power field)Ordered By: Daisy Costello on 11-29-2024 Bacteria LM.HPF (Urine sed) [#/Area] 1 /[HPF] None Seen [facility] Urine specific gravity measu rementOrdered By: Wardbrayan Kernur on 11-29-2024 Specific gravity (U) [Rel density] 1.010 1.002-1.030 [facility] Urine urobilinogen measureme ntOrdered By: Daisy Costello on 11-29-2024 Urobilinogen Ql (U) Normal mg/dl Normal [facility] Urobilinogen Ql (U)Ordered B y: Daisy Kernur on 11-29-2024 Urine Urobilinogen Normal mg/dl Normal [facility] White blood cell countOrdere d By: Daisy Costello on 11-29-2024 Urine WBC >100 SEEN /hpf 0-5 [facility] White blood cell count >100 SEEN /hpf 0-5 [facility] Progress Noteson 11-08-2024 [facility] Liaison Authentication Interface Message Text Documentation: Mode: Video [...] [facility] Faisal Simeon DO 11/08/[address] [facility] 10-27-2024 36 Returned call unable to leave message doug was out for the day [facility] 10-26-2024 36 Name of caller: Dax banks Contact phone number: [phone] Relationship to Patient: [facility] Provider: Dr. Gillette Practice: [facility] Chief Complaint/Reason for Call: [facility] states she missed a call from the office to schedule the patient and would like a return call. Please review. Best time of day caller can be reached: any Patient advised that office/PCP has 24-48 business hours to return their call: Yes [facility] 36 Called and left message to call to reschedule appointment [facility] 3610-25-2024 36 Name of Caller: Dax banks Contact Reason for Appointment: Please call to r/s cx appt for 10.26.24 due to weather conditions. Follow up for pain management//no showed on 08.04.24// Doug from [facility] made appt//medicare medicaid Office Name: [facility] Medication Refills need, if any: n/a Medication Name: n/a Normal [facility] Basic Metabolic Profile (BMP )on 10-10-2024 BUN/CRE 19.6 RATIO Normal 10-20 [facility] Comment on above: Order Comment: 301.2 0000 Performed By: #### L 501.6710, L101.9900, [id number] #### [facility] [address] [place], [address] CA,Total 8.7 mg/dL Normal 8.5-10.1 [facility] Comment on above: Order Comment: 301.2 0000 Performed By: #### L 501.6710, L101.9900, [id number] #### [facility] [address] [place], [address] Chloride [Moles/Vol] 109 mmol/L High 98-107 [facility] Comment on above: Order Comment: 301.2 0000 Performed By: #### L 501.6710, L101.9900, [id number] #### [facility] [address] [place], [address] CO2 [Moles/Vol] 22.0 mmol/L Normal 21.0-32.0 [facility] Comment on above: Order Comment: 301.2 0000 Performed By: #### L 501.6710, L101.9900, [id number] #### [facility] [address] [place], [address] Creatinine [Mass/Vol] 0.56 mg/dL Low 0.70-1.30 [facility] Comment on above: Order Comment: 301.2 0000 Result Comment: The validity of the calculated GFR GFRAA in patients over 70 years has not been determined. Clinical correlation is essential. Performed By: #### L 501.6710, L101.9900, [id number] #### [facility] [address] [place], [address] EST GFR - AA 189 mL/min Normal >60 [facility] Comment on above: Order Comment: 301.2 0000 Result Comment: Afri can Marshallese GFR Calc Performed By: #### L 501.6710, L101.9900, [id number] #### [facility] [address] [place], [address] GAP 7 Normal 5-15 [facility] Comment on above: Order Comment: 301.2 0000 Performed By: #### L 501.6710, L101.9900, [id number] #### [facility] [address] [place], [address] GFR/1.73 sq M.predicted among non-blacks MDRD (S/P/Bld) [Vol rate/Area] 156 mL/min/{1.73_m2} Normal >60 [facility] Comment on above: Order Comment: 301.2 0000 Result Comment: Non- GFR Calc Performed By: #### L 501.6710, L101.9900, [id number] #### [facility] [address] [place], [address] Glucose [Mass/Vol] 108 mg/dL High 74-106 [facility] Comment on above: Order Comment: 301.2 0000 Result Comment: Fast ing Glucose result from 100 to 125 mg/dL suggests IMPAIRED HOMEOSTASIS per A.D.A. criteria. Performed By: #### L 501.6710, L101.9900, [id number] #### [facility] [address] [place], [address] Potassium [Moles/Vol] 4.0 mmol/L Normal 3.5-5.1 [facility] Comment on above: Order Comment: 301.2 0000 Performed By: #### L 501.6710, L101.9900, [id number] #### [facility] [address] [place], [address] Sodium [Moles/Vol] 139 mmol/L Normal 136-145 [facility] Comment on above: Order Comment: 301.2 0000 Performed By: #### L 501.6710, L101.9900, [id number] #### [facility] [address] [place], [address] Urea nitrogen [Mass/Vol] 11 mg/dL Normal 7-18 [facility] Comment on above: Order Comment: 301.2 0000 Performed By: #### L 501.6710, L101.9900, [id number] #### [facility] [address] [place], [address] Blood urea nitrogen (BUN)/cr eatinine ratioOrdered By: Tab Dupont on 10-10-2024 Urea nitrogen/Creatinine [Mass ratio] 19.6 mg/mg 10-20 [facility] CBC-Complete Blood Cnt No Di ffon 10-10-2024 Erythrocyte distribution width (RBC) [Ratio] 13.9 % Normal 11.6-14.6 [facility] Comment on above: Order Comment: 313-2 Performed By: #### L 100.0500, L500.2500 #### [facility] [address] [place], [address] Hematocrit (Bld) [Volume fraction] 42.2 % Normal 40-54 [facility] Comment on above: Order Comment: 313-2 Performed By: #### L 100.0500, L500.2500 #### [facility] [address] [place], [address] Hemoglobin (Bld) [Mass/Vol] 13.4 g/dL Normal 13.0-16.5 [facility] Comment on above: Order Comment: 313-2 Performed By: #### L 100.0500, L500.2500 #### [facility] [address] [place], [address] MCH (RBC) [Entitic mass] 29.8 pg Normal 27.0-32.0 [facility] Comment on above: Order Comment: 313-2 Performed By: #### L 100.0500, L500.2500 #### [facility] [address] [place], [address] MCHC (RBC) [Mass/Vol] 31.8 g/dL Low 32-36 [facility] Comment on above: Order Comment: 313-2 Performed By: #### L 100.0500, L500.2500 #### [facility] [address] [place], [address] MCV (RBC) [Entitic vol] 94.0 fL Normal 80-94 [facility] Comment on above: Order Comment: 313-2 Performed By: #### L 100.0500, L500.2500 #### [facility] [address] [place], [address] Platelet mean volume (Bld) [Entitic vol] 10.5 fL Normal 6.2-12.0 [facility] Comment on above: Order Comment: 313-2 Performed By: #### L 100.0500, L500.2500 #### [facility] [address] [place], [address] Platelets (Bld) [#/Vol] 283 10*3/uL Normal 150-450 [facility] Comment on above: Order Comment: 313-2 Performed By: #### L 100.0500, L500.2500 #### [facility] [address] [place], [address] RBC (Bld) [#/Vol] 4.49 10*6/uL Low 4.6-6.2 [facility] Comment on above: Order Comment: 313-2 Performed By: #### L 100.0500, L500.2500 #### [facility] [address] [place], [address] RDW SD 47.8 fl High 35.1-43.9 [facility] Comment on above: Order Comment: 313-2 Performed By: #### L 100.0500, L500.2500 #### [facility] [address] [place], [address] WBC (Bld) [#/Vol] 7.7 10*3/uL Normal 4.4-11.0 [facility] Comment on above: Order Comment: 313-2 Performed By: #### L 100.0500, L500.2500 #### [facility] [address] [place], [address] Carbon dioxide measurementOr dered By: Tab Dupont on 10-10-2024 CO2 [Moles/Vol] 22.0 mmol/L 21.0-32.0 [facility] Chloride measurementOrdered By: Tab Dupont on 10-10-2024 Chloride [Moles/Vol] 109 mmol/L High 98-107 [facility] Erythrocyte distribution wid th ratioOrdered By: Tab Dupont on 10-10-2024 Erythrocyte distribution width (RBC) [Ratio] 13.9 % 11.6-14.6 [facility] Erythrocyte distribution wid th standard deviationOrdered By: Tab Dupont on 10-10-2024 Erythrocyte distribution width (RBC) [Entitic vol] 47.8 fL High 35.1-43.9 [facility] Estimated glomerular filtrat ion rate (GFR) AmericanOrdered By: Tab Dupont on 10-10-2024 Estimated GFR (MDRD) Amer 189 mL/min >60 [facility] Comment on above: GFR Calc Glomerular filtration rate ( GFR) estimationOrdered By: Tab Dupont on 10-10-2024 Estimated GFR (MDRD) Non-Af Amer 156 mL/min >60 [facility] Comment on above: Non- GFR Calc Glucose measurementOrdered B y: Tab Dupont on 10-10-2024 Glucose [Mass/Vol] 108 mg/dL High 74-106 [facility] Comment on above: Fasting Glucose resu lt from 100 to 125 mg/dL suggests IMPAIRED HOMEOSTASIS per A.D.A. criteria. Hematocrit Auto (Bld) [Volum e fraction]Ordered By: Tab Dupont on 10-10-2024 Hematocrit (Bld) [Volume fraction] 42.2 % 40-54 [facility] Hemoglobin measurementOrdere d By: Tab Dupont on 10-10-2024 Hemoglobin (Bld) [Mass/Vol] 13.4 g/dL 13.0-16.5 [facility] MCV (mean corpuscular volume ) determinationOrdered By: Tab Dupont on 10-10-2024 MCV (RBC) [Entitic vol] 94.0 fL 80-94 [facility] Mean corpuscular hemoglobin (MCH) determinationOrdered By: Tab Dupont on 10-10-2024 MCH (RBC) [Entitic mass] 29.8 pg 27.0-32.0 [facility] Mean corpuscular hemoglobin concentration (MCHC) determinationOrdered By: Tab Dupont on 10-10-2024 MCHC (RBC) [Mass/Vol] 31.8 g/dL Low 32-36 [facility] Mean platelet volume determi nationOrdered By: Tab Dupont on 10-10-2024 Platelet mean volume (Bld) [Entitic vol] 10.5 fL 6.2-12.0 [facility] Platelet countOrdered By: Vinh Lehman on 10-10-2024 Platelets (Bld) [#/Vol] 283 10*3/uL 150-450 [facility] Potassium measurementOrdered By: Tab Dupont on 10-10-2024 Potassium [Moles/Vol] 4.0 mmol/L 3.5-5.1 [facility] RBC Auto (Bld) [#/Vol]Ordere d By: Tab Dupont on 10-10-2024 RBC (Bld) [#/Vol] 4.49 10*6/uL Low 4.6-6.2 [facility] Serum anion gap measurementO rdered By: Tab Dupont on 10-10-2024 Anion gap [Moles/Vol] 7 mmol/L 5- [facility] Serum or plasma calcium randall urement (mass/volume)Ordered By: Tab Dupont on 10-10-2024 Calcium [Mass/Vol] 8.7 mg/dL 8.5-10.1 [facility] Serum or plasma creatinine m easurement (mass/volume)Ordered By: Tab Dupont on 10-10-2024 Creatinine [Mass/Vol] 0.56 mg/dL Low 0.70-1.30 [facility] Comment on above: The validity of the calculated GFR & GFRAA in patients over 70 years has not been determined. Clinical correlation is essential. Serum or plasma urea nitroge n measurement (mass/volume)Ordered By: Tab Dupont on 10-10-2024 Urea nitrogen [Mass/Vol] 11 mg/dL 04-21 [facility] Sodium levelOrdered By: Omar Dupont on 10-10-2024 Sodium [Moles/Vol] 139 mmol/L 136-145 [facility] White blood cell (WBC) count Ordered By: Tab Dupont on 10-10-2024 WBC (Bld) [#/Vol] 7.7 10*3/uL 4.4-11.0 [facility] Basic Metabolic Profile (BMP )on 10-03-2024 BUN/CRE 14.7 RATIO Normal 10-20 [facility] Comment on above: Order Comment: 301.2 0000 Performed By: #### L 501.6710, L101.9900, [id number] #### [facility] [address] [place], [address] CA,Total 8.7 mg/dL Normal 8.5-10.1 [facility] Comment on above: Order Comment: 301.2 0000 Performed By: #### L 501.6710, L101.9900, [id number] #### [facility] [address] [place], [address] Chloride [Moles/Vol] 109 mmol/L High 98-107 [facility] Comment on above: Order Comment: 301.2 0000 Performed By: #### L 501.6710, L101.9900, [id number] #### [facility] [address] [place], [address] CO2 [Moles/Vol] 24.0 mmol/L Normal 21.0-32.0 [facility] Comment on above: Order Comment: 301.2 0000 Performed By: #### L 501.6710, L101.9900, [id number] #### [facility] [address] [place], [address] Creatinine [Mass/Vol] 0.48 mg/dL Low 0.70-1.30 [facility] Comment on above: Order Comment: 301.2 0000 Result Comment: The validity of the calculated GFR GFRAA in patients over 70 years has not been determined. Clinical correlation is essential. Performed By: #### L 501.6710, L101.9900, [id number] #### [facility] [address] [place], [address] EST GFR - AA 229 mL/min Normal >60 [facility] Comment on above: Order Comment: 301.2 0000 Result Comment: Afri can Marshallese GFR Calc Performed By: #### L 501.6710, L101.9900, [id number] #### [facility] [address] [place], [address] GAP 5 Normal 5-15 [facility] Comment on above: Order Comment: 301.2 0000 Performed By: #### L 501.6710, L101.9900, [id number] #### [facility] [address] [place], [address] GFR/1.73 sq M.predicted among non-blacks MDRD (S/P/Bld) [Vol rate/Area] 189 mL/min/{1.73_m2} Normal >60 [facility] Comment on above: Order Comment: 301.2 0000 Result Comment: Non- GFR Calc Performed By: #### L 501.6710, L101.9900, [id number] #### [facility] [address] [place], [address] Glucose [Mass/Vol] 105 mg/dL Normal 74-106 [facility] Comment on above: Order Comment: 301.2 0000 Result Comment: Fast ing Glucose result from 100 to 125 mg/dL suggests IMPAIRED HOMEOSTASIS per A.D.A. criteria. Performed By: #### L 501.6710, L101.9900, [id number] #### [facility] [address] [place], [address] Potassium [Moles/Vol] 3.7 mmol/L Normal 3.5-5.1 [facility] Comment on above: Order Comment: 301.2 0000 Performed By: #### L 501.6710, L101.9900, [id number] #### [facility] [address] [place], [address] Sodium [Moles/Vol] 138 mmol/L Normal 136-145 [facility] Comment on above: Order Comment: 301.2 0000 Performed By: #### L 501.6710, L101.9900, [id number] #### [facility] [address] [place], [address] Urea nitrogen [Mass/Vol] 7 mg/dL Normal 7-18 [facility] Comment on above: Order Comment: 301.2 0000 Performed By: #### L 501.6710, L101.9900, [id number] #### [facility] [address] [place], [address] Blood urea nitrogen (BUN)/cr eatinine ratioOrdered By: Tab Dupont on 10-03-2024 Urea nitrogen/Creatinine [Mass ratio] 14.7 mg/mg 10-20 [facility] CBC-Complete Blood Cnt No Di ffon 10-03-2024 Erythrocyte distribution width (RBC) [Ratio] 14.0 % Normal 11.6-14.6 [facility] Comment on above: Order Comment: 301.2 0000 Performed By: #### L 501.6710, L101.9900, [id number] #### [facility] [address] [place], [address] Hematocrit (Bld) [Volume fraction] 38.4 % Low 40-54 [facility] Comment on above: Order Comment: 301.2 0000 Performed By: #### L 501.6710, L101.9900, [id number] #### [facility] [address] [place], [address] Hemoglobin (Bld) [Mass/Vol] 12.5 g/dL Low 13.0-16.5 [facility] Comment on above: Order Comment: 301.2 0000 Performed By: #### L 501.6710, L101.9900, [id number] #### [facility] [address] [place], [address] MCH (RBC) [Entitic mass] 30.3 pg Normal 27.0-32.0 [facility] Comment on above: Order Comment: 301.2 0000 Performed By: #### L 501.6710, L101.9900, [id number] #### [facility] [address] [place], [address] MCHC (RBC) [Mass/Vol] 32.6 g/dL Normal 32-36 [facility] Comment on above: Order Comment: 301.2 0000 Performed By: #### L 501.6710, L101.9900, [id number] #### [facility] [address] [place], [address] MCV (RBC) [Entitic vol] 93.0 fL Normal 80-94 [facility] Comment on above: Order Comment: 301.2 0000 Performed By: #### L 501.6710, L101.9900, [id number] #### [facility] [address] [place], [address] Platelet mean volume (Bld) [Entitic vol] 10.4 fL Normal 6.2-12.0 [facility] Comment on above: Order Comment: 301.2 0000 Performed By: #### L 501.6710, L101.9900, [id number] #### [facility] [address] [place], [address] Platelets (Bld) [#/Vol] 284 10*3/uL Normal 150-450 [facility] Comment on above: Order Comment: 301.2 0000 Performed By: #### L 501.6710, L101.9900, [id number] #### [facility] [address] [place], [address] RBC (Bld) [#/Vol] 4.13 10*6/uL Low 4.6-6.2 [facility] Comment on above: Order Comment: 301.2 0000 Performed By: #### L 501.6710, L101.9900, [id number] #### [facility] [address] [place], [address] RDW SD 48.5 fl High 35.1-43.9 [facility] Comment on above: Order Comment: 301.2 0000 Performed By: #### L 501.6710, L101.9900, [id number] #### [facility] [address] [place], [address] WBC (Bld) [#/Vol] 7.8 10*3/uL Normal 4.4-11.0 [facility] Comment on above: Order Comment: 301.2 0000 Performed By: #### L 501.6710, L101.9900, L501.8820 #### [facility] [address] [place], [address] Carbon dioxide measurementOr dered By: Tab Dupont on 10-03-2024 CO2 [Moles/Vol] 24.0 mmol/L 21.0-32.0 [facility] Chloride measurementOrdered By: Tab Dupont on 10-03-2024 Chloride [Moles/Vol] 109 mmol/L High 98-107 [facility] Erythrocyte distribution wid th ratioOrdered By: Tab Dupont on 10-03-2024 Erythrocyte distribution width (RBC) [Ratio] 14.0 % 11.6-14.6 [facility] Erythrocyte distribution wid th standard deviationOrdered By: Tab Dupont on 10-03-2024 Erythrocyte distribution width (RBC) [Entitic vol] 48.5 fL High 35.1-43.9 [facility] Estimated glomerular filtrat ion rate (GFR) AmericanOrdered By: Tab Dupont on 10-03-2024 Estimated GFR (MDRD) Amer 229 mL/min >60 [facility] Comment on above: GFR Calc Glomerular filtration rate ( GFR) estimationOrdered By: Tab Dupont on 10-03-2024 Estimated GFR (MDRD) Non-Af Amer 189 mL/min >60 [facility] Comment on above: Non- GFR Calc Glucose measurementOrdered B y: Tab Dupont on 10-03-2024 Glucose [Mass/Vol] 105 mg/dL 74-106 [facility] Comment on above: Fasting Glucose resu lt from 100 to 125 mg/dL suggests IMPAIRED HOMEOSTASIS per A.D.A. criteria. Hematocrit Auto (Bld) [Volum e fraction]Ordered By: Tab Dupont on 10-03-2024 Hematocrit (Bld) [Volume fraction] 38.4 % Low 40-54 [facility] Hemoglobin measurementOrdere d By: Tab Dupont on 10-03-2024 Hemoglobin (Bld) [Mass/Vol] 12.5 g/dL Low 13.0-16.5 [facility] MCV (mean corpuscular volume ) determinationOrdered By: Tab Dupont on 10-03-2024 MCV (RBC) [Entitic vol] 93.0 fL 80-94 [facility] Mean corpuscular hemoglobin (MCH) determinationOrdered By: Tab Dupont on 10-03-2024 MCH (RBC) [Entitic mass] 30.3 pg 27.0-32.0 [facility] Mean corpuscular hemoglobin concentration (MCHC) determinationOrdered By: Tab Dupont on 10-03-2024 MCHC (RBC) [Mass/Vol] 32.6 g/dL 32-36 [facility] Mean platelet volume determi nationOrdered By: Tab Dupont on 10-03-2024 Platelet mean volume (Bld) [Entitic vol] 10.4 fL 6.2-12.0 [facility] Platelet countOrdered By: Vinh Lehman on 10-03-2024 Platelets (Bld) [#/Vol] 284 10*3/uL 150-450 [facility] Potassium measurementOrdered By: Tab Dupont on 10-03-2024 Potassium [Moles/Vol] 3.7 mmol/L 3.5-5.1 [facility] RBC Auto (Bld) [#/Vol]Ordere d By: Tab Dupont on 10-03-2024 RBC (Bld) [#/Vol] 4.13 10*6/uL Low 4.6-6.2 [facility] Serum anion gap measurementO rdered By: Tab Dupont on 10-03-2024 Anion gap [Moles/Vol] 5 mmol/L 5-15 [facility] Serum or plasma calcium randall urement (mass/volume)Ordered By: Tab Dupont on 10-03-2024 Calcium [Mass/Vol] 8.7 mg/dL 8.5-10.1 [facility] Serum or plasma creatinine m easurement (mass/volume)Ordered By: Tab Dupont on 10-03-2024 Creatinine [Mass/Vol] 0.48 mg/dL Low 0.70-1.30 [facility] Comment on above: The validity of the calculated GFR & GFRAA in patients over 70 years has not been determined. Clinical correlation is essential. Serum or plasma urea nitroge n measurement (mass/volume)Ordered By: Tab Dupont on 10-03-2024 Urea nitrogen [Mass/Vol] 7 mg/dL 7-18 [facility] Sodium levelOrdered By: Omar Dupont on 10-03-2024 Sodium [Moles/Vol] 138 mmol/L 136-145 [facility] White blood cell (WBC) count Ordered By: Tab Dupont on 10-03-2024 WBC (Bld) [#/Vol] 7.8 10*3/uL 4.4-11.0 [facility] Patient Instructionson 09-30 [facility] Authentication Interface Message Text Completed UDS. Inserted 18Fr 10cc santana Call to schedule appt with Urology Dr Jorge Grimm MD (Surgeon) [address] [place] [address] [place] [address] scan given recurrent blood [...] burning on urination, call the office at [phone] Thursday through Thursday 8:00 AM to 4:30 PM. For emergencies, go the Emergency Room. If you do not already have a follow up appointment scheduled with your physician, call the office at [phone] to schedule one. Normal [facility] Progress Noteson 09-30-2024 [facility]ia[facility] Authentication Interface Message Text SPINAL CORD INJURY [...] p (more content not included)... Normal [facility] C-reactive protein measureme nt by high sensitivity methodOrdered By: Tab Dupont on 09-29-2024 C-Reactive Protein Extended Range 38.30 mg/L High 0.0-3.0 [facility] Comment on above: C-Reactive Protein ( CRP) provides useful information for thediagnosis, therapy and monitoring of inflammatory processesand associated diseases. For the evaluation of Relative Riskfor Cardiovascular Disease, a High Sensitivity CRP (HSCRP)should be ordered. CBC-Complete Blood Cnt No Di ffon 09-29-2024 Erythrocyte distribution width (RBC) [Ratio] 14.4 % Normal 11.6-14.6 [facility] Comment on above: Order Comment: 301.2 Performed By: #### L 101.9900, L100.0500, L500.4050, L501.6710 #### [facility] [address] [place], [address] Hematocrit (Bld) [Volume fraction] 40.3 % Normal 40-54 [facility] Comment on above: Order Comment: 301.2 Performed By: #### L 101.9900, L100.0500, L500.4050, L501.6710 #### [facility] [address] [place], [address] Hemoglobin (Bld) [Mass/Vol] 13.3 g/dL Normal 13.0-16.5 [facility] Comment on above: Order Comment: 301.2 Performed By: #### L 101.9900, L100.0500, L500.4050, L501.6710 #### [facility] [address] [place], [address] MCH (RBC) [Entitic mass] 31.4 pg Normal 27.0-32.0 [facility] Comment on above: Order Comment: 301.2 Performed By: #### L 101.9900, L100.0500, L500.4050, L501.6710 #### [facility] [address] [place], [address] MCHC (RBC) [Mass/Vol] 33.0 g/dL Normal 32-36 [facility] Comment on above: Order Comment: 301.2 Performed By: #### L 101.9900, L100.0500, L500.4050, L501.6710 #### [facility] [address] [place], [address] MCV (RBC) [Entitic vol] 95.0 fL High 80-94 [facility] Comment on above: Order Comment: 301.2 Performed By: #### L 101.9900, L100.0500, L500.4050, L501.6710 #### [facility] [address] [place], [address] Platelet mean volume (Bld) [Entitic vol] 10.6 fL Normal 6.2-12.0 [facility] Comment on above: Order Comment: 301.2 Performed By: #### L 101.9900, L100.0500, L500.4050, L501.6710 #### [facility] [address] [place], [address] Platelets (Bld) [#/Vol] 270 10*3/uL Normal 150-450 [facility] Comment on above: Order Comment: 301.2 Performed By: #### L 101.9900, L100.0500, L500.4050, L501.6710 #### [facility] [address] [place], [address] RBC (Bld) [#/Vol] 4.24 10*6/uL Low 4.6-6.2 [facility] Comment on above: Order Comment: 301.2 Performed By: #### L 101.9900, L100.0500, L500.4050, L501.6710 #### [facility] [address] [place], [address] RDW SD 50.0 fl High 35.1-43.9 [facility] Comment on above: Order Comment: 301.2 Performed By: #### L 101.9900, L100.0500, L500.4050, L501.6710 #### [facility] [address] [place], [address] WBC (Bld) [#/Vol] 8.7 10*3/uL Normal 4.4-11.0 [facility] Comment on above: Order Comment: 301.2 Performed By: #### L 101.9900, L100.0500, L500.4050, L501.6710 #### [facility] [address] [place], [address] CRPon 09-29-2024 C-REACTIVE PROT 38.30 mg/L High 0.0-3.0 [facility] Comment on above: Order Comment: 301.2 Result Comment: C-Re active Protein (CRP) provides useful information for the diagnosis, therapy and monitoring of inflammatory processes and associated diseases. For the evaluation of Relative Risk for Cardiovascular Disease, a High Sensitivity CRP (HSCRP) should be ordered. Performed By: #### L 101.9900, L100.0500, L500.4050, L501.6710 #### [facility] [address] [place], [address] Erythrocyte Sed Rateon 09-29 SED RATE 47 mm/hr High 0-20 [facility] Comment on above: Order Comment: 301.2 Performed By: #### L 101.9900, L100.0500, L500.4050, L501.6710 #### [facility] [address] [place], [address] Erythrocyte distribution wid th ratioOrdered By: Tab Dupont on 09-29-2024 Erythrocyte distribution width (RBC) [Ratio] 14.4 % 11.6-14.6 [facility] Erythrocyte distribution wid th standard deviationOrdered By: Tab Dupont on 09-29-2024 Erythrocyte distribution width (RBC) [Entitic vol] 50.0 fL High 35.1-43.9 [facility] Erythrocyte sedimentation ra teOrdered By: Tab Dupont on 09-29-2024 ESR (Bld) [Velocity] 47 mm/h High 0-20 [facility] Hematocrit Auto (Bld) [Volum e fraction]Ordered By: Tab Dupont on 09-29-2024 Hematocrit (Bld) [Volume fraction] 40.3 % 40-54 [facility] Hemoglobin measurementOrdere d By: Tab Dupont on 09-29-2024 Hemoglobin (Bld) [Mass/Vol] 13.3 g/dL 13.0-16.5 [facility] MCV (mean corpuscular volume ) determinationOrdered By: Tab Dupont on 09-29-2024 MCV (RBC) [Entitic vol] 95.0 fL High 80-94 [facility] Mean corpuscular hemoglobin (MCH) determinationOrdered By: Tab Dupont on 09-29-2024 MCH (RBC) [Entitic mass] 31.4 pg 27.0-32.0 [facility] Mean corpuscular hemoglobin concentration (MCHC) determinationOrdered By: Tab Dupont on 09-29-2024 MCHC (RBC) [Mass/Vol] 33.0 g/dL 32-36 [facility] Mean platelet volume determi nationOrdered By: Tab Dupont on 09-29-2024 Platelet mean volume (Bld) [Entitic vol] 10.6 fL 6.2-12.0 [facility] Platelet countOrdered By: Vinh Lehman on 09-29-2024 Platelets (Bld) [#/Vol] 270 10*3/uL 150-450 [facility] RBC Auto (Bld) [#/Vol]Ordere d By: Tab Dupont on 09-29-2024 RBC (Bld) [#/Vol] 4.24 10*6/uL Low 4.6-6.2 [facility] White blood cell (WBC) count Ordered By: Tab Dupont on 09-29-2024 WBC (Bld) [#/Vol] 8.7 10*3/uL 4.4-11.0 [facility] Basic Metabolic Profile (BMP )on 09-20-2024 BUN/CRE 26.4 RATIO High 10-20 [facility] Comment on above: Order Comment: 301.2 0000 Performed By: #### L 501.6710, L101.9900, L501.8820 #### [facility] [address] [place], [address] CA,Total 8.2 mg/dL Low 8.5-10.1 [facility] Comment on above: Order Comment: 301.2 0000 Performed By: #### L 501.6710, L101.9900, L501.8820 #### [facility] [address] [place], [address] Chloride [Moles/Vol] 107 mmol/L Normal 98-107 [facility] Comment on above: Order Comment: 301.2 0000 Performed By: #### L 501.6710, L101.9900, L501.8820 #### [facility] [address] [place], [address] CO2 [Moles/Vol] 24.0 mmol/L Normal 21.0-32.0 [facility] Comment on above: Order Comment: 301.2 0000 Performed By: #### L 501.6710, L101.9900, L501.8820 #### [facility] [address] [place], [address] Creatinine [Mass/Vol] 0.61 mg/dL Low 0.70-1.30 [facility] Comment on above: Order Comment: 301.2 0000 Result Comment: The validity of the calculated GFR GFRAA in patients over 70 years has not been determined. Clinical correlation is essential. Performed By: #### L 501.6710, L101.9900, L501.8820 #### [facility] [address] [place], [address] EST GFR - AA 173 mL/min Normal >60 [facility] Comment on above: Order Comment: 301.2 0000 Result Comment: Afri can Marshallese GFR Calc Performed By: #### L 501.6710, L101.9900, L501.8820 #### [facility] [address] [place], [address] GAP 6 Normal 5-15 [facility] Comment on above: Order Comment: 301.2 0000 Performed By: #### L 501.6710, L101.9900, L501.8820 #### [facility] [address] [place], [address] GFR/1.73 sq M.predicted among non-blacks MDRD (S/P/Bld) [Vol rate/Area] 143 mL/min/{1.73_m2} Normal >60 [facility] Comment on above: Order Comment: 301.2 0000 Result Comment: Non- GFR Calc Performed By: #### L 501.6710, L101.9900, L501.8820 #### [facility] [address] [place], [address] Glucose [Mass/Vol] 134 mg/dL High 74-106 [facility] Comment on above: Order Comment: 301.2 0000 Result Comment: Fast ing Glucose result greater than or equal to 126 mg/dL suggests DIABETES MELLITUS per A.D.A. criteria. Performed By: #### L 501.6710, L101.9900, L501.8820 #### [facility] [address] [place], [address] Potassium [Moles/Vol] 3.3 mmol/L Low 3.5-5.1 [facility] Comment on above: Order Comment: 301.2 0000 Performed By: #### L 501.6710, L101.9900, L501.8820 #### [facility] [address] [place], [address] Sodium [Moles/Vol] 137 mmol/L Normal 136-145 [facility] Comment on above: Order Comment: 301.2 0000 Performed By: #### L 501.6710, L101.9900, L501.8820 #### [facility] [address] [place], [address] Urea nitrogen [Mass/Vol] 16 mg/dL Normal 7-18 [facility] Comment on above: Order Comment: 301.2 0000 Performed By: #### L 501.6710, L101.9900, L501.8820 #### [facility] [address] [place], [address] Blood urea nitrogen (BUN)/cr eatinine ratioOrdered By: Tab Dupont on 09-20-2024 Urea nitrogen/Creatinine [Mass ratio] 26.4 mg/mg High 10-20 [facility] Carbon dioxide measurementOr dered By: Tab Dupont on 09-20-2024 CO2 [Moles/Vol] 24.0 mmol/L 21.0-32.0 [facility] Chloride measurementOrdered By: Tab Dupont on 09-20-2024 Chloride [Moles/Vol] 107 mmol/L 98-107 [facility] Estimated glomerular filtrat ion rate (GFR) AmericanOrdered By: Tab Dupont on 09-20-2024 Estimated GFR (MDRD) Amer 173 mL/min >60 [facility] Comment on above: GFR Calc Glomerular filtration rate ( GFR) estimationOrdered By: Tab Dupont on 09-20-2024 Estimated GFR (MDRD) Non-Af Amer 143 mL/min >60 [facility] Comment on above: Non- GFR Calc Glucose measurementOrdered B y: Tab Dupont on 09-20-2024 Glucose [Mass/Vol] 134 mg/dL High 74-106 [facility] Comment on above: Fasting Glucose resu lt greater than or equal to 126 mg/dL suggests DIABETES MELLITUS per A.D.A. criteria. Potassium measurementOrdered By: Tab Dupont on 09-20-2024 Potassium [Moles/Vol] 3.3 mmol/L Low 3.5-5.1 [facility] Serum anion gap measurementO rdered By: Tab Dupont on 09-20-2024 Anion gap [Moles/Vol] 6 mmol/L - [facility] Serum or plasma calcium randall urement (mass/volume)Ordered By: Tab Dupont on 09-20-2024 Calcium [Mass/Vol] 8.2 mg/dL Low 8.5-10.1 [facility] Serum or plasma creatinine m easurement (mass/volume)Ordered By: Tab Dupont on 09-20-2024 Creatinine [Mass/Vol] 0.61 mg/dL Low 0.70-1.30 [facility] Comment on above: The validity of the calculated GFR & GFRAA in patients over 70 years has not been determined. Clinical correlation is essential. Serum or plasma urea nitroge n measurement (mass/volume)Ordered By: Tab Dupont on 09-20-2024 Urea nitrogen [Mass/Vol] 16 mg/dL 04-21 [facility] Sodium levelOrdered By: Omar Dupont on 09-20-2024 Sodium [Moles/Vol] 137 mmol/L 136-145 [facility] Progress Noteson 08-22-2024 [facility] Liaison Authentication Interface Message Text Rheumatology New visit [...] Resource Strain: Low Risk (04/24/2023) Received from [facility] Overall Financial Resource Strain (CARDIA) Difficulty of Paying Living Expenses: Not hard at all Food Insecurity: No Food Insecurity (05/18/2024) Received from [facility] Hunger Vital Sign Worried About Running Out of Food in the Last Year: Never true Ran Out of Food in the Last Year: Never true Transportation Needs: No Transportation Needs (05/18/2024) [facility] Lack of Transportation (Medical): No Lack of Transportation (Non-Medical): No Intimate Partner Violence: Not At Risk (05/18/2024) [facility] Humiliation, Afraid, Rape, and Kick questionnaire Fear [...] - (more content not included)... Normal [facility] Telephone Encounteron 2023 [facility] Community Liaison Authentication Interface Message Text Spoke with Doug at Care Facility where pt resides and given the date and time of [facility] TEACHER video visit with Dr. Shultz at 8:20 am on 08/22/24. This information will be relayed to pt. Normal [facility] Addendum Noteon 08-01-2024 [facility] Liaison Authentication Interface Message Text Addended by: FAISAL SIMEON on: 08/01/2024 02:57 PM Modules accepted: Level of Service Normal [facility] Patient Instructionson 08-01 [facility] Liaison Authentication Interface Message Text -Continue PT/OT -Please follow your appoitment with pain team and rheumatology -You are scheduled for bladder study on 09/30/24 -continue scheduled bowel care daily Normal [facility] Progress Noteson 07-31-2024 [facility] Community Liaison Authentication Interface Message Text Documentation: Mode: Video [...] following spinal surgery [place]2 [place]rs ago [place] . In 2019, pt had his first back surgery performed by [facility] which was an interbody fusion. 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 At that point, the hospital took the hardware out and did not replace it with the goal of treating the infection. 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 After the infection was treated, [facility] extended his fusion, decompressed the back, and replaced all hardware. At that time he lost all motor and sensation to his lower extremities. He was independent uptill december 2021 till his last spine surgery two year ago.Since 2021 he is in longterm and he changes 5 longterm so far. Currently SNF in [facility]. Last seen on 06/13/24 in clinic and recommendations was: -Continue PT/OT -Bowel care: schedule bowel care once/day (either after breakfast or dinner) - using suppository and manual stimulation over commode chair will be more helpful than over bed . 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 Normal [facility] MR C-SPINE W/Oon 07-11-2024 MR C-SPINE [...] the right cerebellum. 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 [facility] T-SPINE W/Oon 07-11-2024 MR T-SPINE W/O [...] T5 and T2. MACRO: None Normal [facility] MR Thoracic spine WO contras ton [...] of T11, T5 and T2. MACRO: None [facility] MR Thoracic spine WO contras tOrdered By: Del Leslie on 07-11-2024 [facility] Work Phone: No Panel Informationon 07-10 Radiology Study observation (narrative) [facility] BD BONE DENSITY SURVEYon BD BONE DENSITY SURVEY EXAMINATION: BD B ONE DENSITY SURVEY 07/01/2024 11:31 AM CLINICAL HISTORY: sacral insufficiency ASSOCIATED DIAGNOSIS: Sacral insufficiency fracture, initial encounter ADDITIONAL CLINICAL INFORMATION:Indicatio ns: History of Fracture (Adult) TREATMENTS: ORDERING PROVIDER: OTIS [employer] NOTE: TECHNIQUE: Quantitative digital radiography for DEXA bone mineral assessment was performed using the [employer] densitometer. Following are the results for your [...] online (www.shef.ac.uk/FRAX via a link on the [employer] screen. The model calculates the 10-yr probability of hip fracture or any major osteoporotic fracture (vertebral, hip, forearm, or humerus fracture), using clinical populations, and applies only to previously-untreated patients. (FRAX-friendly) T-scores, as calculated using the [employer] link, should be used in the model. [...] below the expected range for age. Normal [facility] 36on 06-16-2024 36 Scheduled appointment Normal [facility] 36 Doug is calling in again wanting to rescheduled they can be reached at the office anytime before 3pm. Please advise and thank you Normal [facility] Addendum Noteon 06-16-2024 [facility] Liaison [employer] Interface Message Text Addended by: FAISAL SIMEON on: 06/16/2024 09:13 PM Modules accepted: Level of Service Normal [facility] 36on 06-15-2024 36 LM for Doug to call the office to discuss the pt Normal [facility] 36 Name of caller: Dax banks Contact phone number: [phone] Relationship to Patient: [facility] Provider: chepe Practice: pain management Chief Complaint/Reason for Call: doug is calling in wanting to speak to the main office. Please advise and thank you Best time of day caller can be reached: any Patient advised that office/PCP has 24-48 business hours to return their call: Yes Normal [facility] Telephone Encounteron 2023 [facility] Liaison [employer] Interface Message Text RTC to pt, left voice mail. Vladimir Borden [facility] [employer] Foreman [phone] [facility] Patient Instructionson 06-13 [facility] Liaison Authentication Interface Message Text -Continue PT/OT -Bowel care: schedule bowel care once/day (either after breakfast or dinner) - using suppository and manual stimulation over commode chair will be more helpful than over bed . - Continue skin care - Follow [facility] service consult( we requested today ) for benefits eligibility - Bladder: We ordered today Urodynamic study for your bladder evaluation (to see your bladder status post spinal cord injury) Normal [facility] Progress Noteson 06-13-2024 [facility] Community Liaison Authentication Interface Message Text Patient was identified by name and date of . Evelio Grey Normal [facility] Progress Noteson 06-12-2024 [facility] Community Liaison Authentication Interface Message Text SPINAL CORD INJURY [...] following spinal surgery [place]2 yrs ago [place] . In 2019, pt had his first back surgery performed by [facility] which was an interbody fusion. 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 At that point, the hospital took the hardware out and did not replace it with the goal of treating the infection. 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 After the infection was treated, [facility] extended his fusion, decompressed the back, and [...] 5 longterm so far. Currently SNF in [facility]. 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 [facility] B[facility] identified Cx Nom ( Bld)on 05-22-2024 Interpretation and review of laboratory results Normal [facility] Blood Collection Site: Left Arm [facility] Blood Collection Site: Left Antecubital [facility] CBC panel Auto (Bld)on 05-22 Erythrocyte distribution width (RBC) [Ratio] 15.1 % High 11.5 - 15.0 % [facility] Hematocrit (Bld) [Volume fraction] 38.4 % Low 40.0 - 52.0 % [facility] Hemoglobin (Bld) [Mass/Vol] 12.8 g/dL Low 13.0 - 18.0 g/dL [facility] Interpretation and review of laboratory results Abnormal [facility] MCH (RBC) [Entitic mass] 30.4 pg 26. 0 - 34.0 pg [facility] MCHC (RBC) [Mass/Vol] 33.3 % 30.5 - 36.0 % [facility] MCV (RBC) [Entitic vol] 91.2 fL 77.0 - 99.0 fL [facility] Platelet mean volume (Bld) [Entitic vol] 10.6 fL 9.0 - 12.7 fL [facility] Platelets (Bld) [#/Vol] 209 10*3/uL 140 - 440 10*3/uL [facility] RBC (Bld) [#/Vol] 4.21 10*6/uL Low 4.40 - 5.9 0 10*6/uL [facility] WBC (Bld) [#/Vol] 6.4 10*3/uL 3.6 - 10.7 10*3/uL [facility] Comprehensive metabolic 1998 panelon 05-22-2024 Albumin [Mass/Vol] 3.1 g/dL Low 3.5 - 5.0 g/dL [facility] ALP [Catalytic activity/Vol] 151 U/L High 38 - 126 U/L [facility] ALT [Catalytic activity/Vol] 22 U/L 0 - 49 U/L [facility] Anion gap [Moles/Vol] 5 mmol/L 3 - 13 mmol/L [facility] AST [Catalytic activity/Vol] 25 U/L 15 - 46 U/L [facility] Bilirubin [Mass/Vol] 0.6 mg/dL 0.2 - 1 .3 mg/dL [facility] Calcium [Mass/Vol] 8.4 mg/dL 8.4 - 10. 4 mg/dL [facility] Chloride [Moles/Vol] 107 mmol/L 98 - 10 7 mmol/L [facility] CO2 [Moles/Vol] 22 mmol/L 22 - 30 mmol/L [facility] Creatinine [Mass/Vol] 0.54 mg/dL Low 0.66 - 1.25 mg/dL [facility] GFR/1.73 sq M.predicted (S/P/Bld) [Vol rate/Area] - PINF [facility] Comment on above: Calculation based on the Chronic Kidney Disease Epidemiology Collaboration (CKD-EPI) equation refit without adjustment for race Glucose [Mass/Vol] 144 mg/dL High 70 - 100 mg/dL [facility] Interpretation and review of laboratory results Abnormal [facility] Potassium [Moles/Vol] 3.9 mmol/L 3.5 - 5.1 mmol/L [facility] Protein [Mass/Vol] 6.3 g/dL 6.3 - 8.2 g/dL [facility] Sodium [Moles/Vol] 135 mmol/L 135 - 145 mmol/L [facility] Urea nitrogen [Mass/Vol] 13 mg/dL 9 - 20 mg/dL [facility] Laboratory - Chemistry and C hemistry - challengeon 05-22-2024 Glucose [Mass/Vol] 177 mg/dL High 70 - 100 mg/dL [facility] Glucose [Mass/Vol] 325 mg/dL High 70 - 100 mg/dL [facility] Glucose [Mass/Vol] 133 mg/dL High 70 - 100 mg/dL [facility] Laboratory - Microbiology an d Antimicrobial susceptibilityon 05-22-2024 Bacteria identified Cx Nom (Bld) No growth at 5 days [facility] No Panel Informationon 05-22 Interpretation and review of laboratory results Abnormal [facility] Performed by: [facility], [address] [place] [address] CLIA ID: [id number] [facility] Interpretation and review of laboratory results Abnormal [facility] Performed by: [facility], [address] [place] [address] CLIA ID: [id number] [facility] Interpretation and review of laboratory results Abnormal [facility] Performed by: [facility], [address] [place] [address] CLIA ID: [id number] [facility] CBC panel Auto (Bld)on 05-21 Erythrocyte distribution width (RBC) [Ratio] 15.0 % 11.5 - 15.0 % [facility] Hematocrit (Bld) [Volume fraction] 37.5 % Low 40.0 - 52.0 % [facility] Hemoglobin (Bld) [Mass/Vol] 12.4 g/dL Low 13.0 - 18.0 g/dL [facility] Interpretation and review of laboratory results Abnormal [facility] MCH (RBC) [Entitic mass] 30.7 pg 26. 0 - 34.0 pg [facility] MCHC (RBC) [Mass/Vol] 33.1 % 30.5 - 36.0 % [facility] MCV (RBC) [Entitic vol] 92.8 fL 77.0 - 99.0 fL [facility] Platelet mean volume (Bld) [Entitic vol] 10.4 fL 9.0 - 12.7 fL [facility] Platelets (Bld) [#/Vol] 192 10*3/uL 140 - 440 10*3/uL [facility] RBC (Bld) [#/Vol] 4.04 10*6/uL Low 4.40 - 5.9 0 10*6/uL [facility] WBC (Bld) [#/Vol] 5.8 10*3/uL 3.6 - 10.7 10*3/uL [facility] Comprehensive metabolic 1998 panelon 05-21-2024 Albumin [Mass/Vol] 3.2 g/dL Low 3.5 - 5.0 g/dL [facility] ALP [Catalytic activity/Vol] 142 U/L High 38 - 126 U/L [facility] ALT [Catalytic activity/Vol] 21 U/L 0 - 49 U/L [facility] Anion gap [Moles/Vol] 8 mmol/L 3 - 13 mmol/L [facility] AST [Catalytic activity/Vol] 24 U/L 15 - 46 U/L [facility] Bilirubin [Mass/Vol] 0.5 mg/dL 0.2 - 1 .3 mg/dL [facility] Calcium [Mass/Vol] 8.5 mg/dL 8.4 - 10. 4 mg/dL [facility] Chloride [Moles/Vol] 109 mmol/L High 98 - 10 7 mmol/L [facility] CO2 [Moles/Vol] 18 mmol/L Low 22 - 30 mmol/L [facility] Creatinine [Mass/Vol] 0.46 mg/dL Low 0.66 - 1.25 mg/dL [facility] GFR/1.73 sq M.predicted (S/P/Bld) [Vol rate/Area] - PINF [facility] Comment on above: Calculation based on the Chronic Kidney Disease Epidemiology Collaboration (CKD-EPI) equation refit without adjustment for race Glucose [Mass/Vol] 157 mg/dL High 70 - 100 mg/dL [facility] Interpretation and review of laboratory results Abnormal [facility] Potassium [Moles/Vol] 3.9 mmol/L 3.5 - 5.1 mmol/L [facility] Protein [Mass/Vol] 6.2 g/dL Low 6.3 - 8.2 g/dL [facility] Sodium [Moles/Vol] 136 mmol/L 135 - 145 mmol/L [facility] Urea nitrogen [Mass/Vol] 11 mg/dL 9 - 20 mg/dL [facility] Laboratory - Chemistry and C hemistry - challengeon 05-21-2024 Glucose [Mass/Vol] 261 mg/dL High 70 - 100 mg/dL [facility] Glucose [Mass/Vol] 231 mg/dL High 70 - 100 mg/dL [facility] Glucose [Mass/Vol] 162 mg/dL High 70 - 100 mg/dL [facility] Glucose [Mass/Vol] 154 mg/dL High 70 - 100 mg/dL [facility] No Panel Informationon 05-21 Interpretation and review of laboratory results Abnormal [facility] Performed by: [facility], [address] [place] [address] CLIA ID: [id number] [facility] Interpretation and review of laboratory results Abnormal [facility] Performed by: [facility], [address] [place] [address] CLIA ID: [id number] [facility] Interpretation and review of laboratory results Abnormal [facility] Performed by: [facility], [address] [place] [id number] CLIA ID: [id number] [facility] Interpretation and review of laboratory results Abnormal [facility] Performed by: [facility], [address] [place] [address] CLIA ID: [id number] [facility] Bacteria identified Cx Nom ( U)Ordered By: Codie Tang on 05-20-2024 Interpretation and review of laboratory results Abnormal [facility] Bacteria identified Cx Nom ( U)on 05-20-2024 Interpretation and review of laboratory results Abnormal [facility] CBC panel Auto (Bld)on 05-20 Erythrocyte distribution width (RBC) [Ratio] 15.1 % High 11.5 - 15.0 % [facility] Hematocrit (Bld) [Volume fraction] 37.0 % Low 40.0 - 52.0 % [facility] Hemoglobin (Bld) [Mass/Vol] 12.2 g/dL Low 13.0 - 18.0 g/dL [facility] Interpretation and review of laboratory results Abnormal [facility] MCH (RBC) [Entitic mass] 29.9 pg 26. 0 - 34.0 pg [facility] MCHC (RBC) [Mass/Vol] 33.0 % 30.5 - 36.0 % [facility] MCV (RBC) [Entitic vol] 90.7 fL 77.0 - 99.0 fL [facility] Platelet mean volume (Bld) [Entitic vol] 10.4 fL 9.0 - 12.7 fL [facility] Platelets (Bld) [#/Vol] 197 10*3/uL 140 - 440 10*3/uL [facility] RBC (Bld) [#/Vol] 4.08 10*6/uL Low 4.40 - 5.9 0 10*6/uL [facility] WBC (Bld) [#/Vol] 5.5 10*3/uL 3.6 - 10.7 10*3/uL [facility] Comprehensive metabolic 1998 panelon 05-20-2024 Albumin [Mass/Vol] 3.2 g/dL Low 3.5 - 5.0 g/dL [facility] ALP [Catalytic activity/Vol] 153 U/L High 38 - 126 U/L [facility] ALT [Catalytic activity/Vol] 22 U/L 0 - 49 U/L [facility] Anion gap [Moles/Vol] 4 mmol/L 3 - 13 mmol/L [facility] AST [Catalytic activity/Vol] 23 U/L 15 - 46 U/L [facility] Bilirubin [Mass/Vol] 0.6 mg/dL 0.2 - 1 .3 mg/dL [facility] Calcium [Mass/Vol] 8.5 mg/dL 8.4 - 10. 4 mg/dL [facility] Chloride [Moles/Vol] 109 mmol/L High 98 - 10 7 mmol/L [facility] CO2 [Moles/Vol] 21 mmol/L Low 22 - 30 mmol/L [facility] Creatinine [Mass/Vol] 0.50 mg/dL Low 0.66 - 1.25 mg/dL [facility] GFR/1.73 sq M.predicted (S/P/Bld) [Vol rate/Area] - PINF [facility] Comment on above: Calculation based on the Chronic Kidney Disease Epidemiology Collaboration (CKD-EPI) equation refit without adjustment for race Glucose [Mass/Vol] 207 mg/dL High 70 - 100 mg/dL [facility] Interpretation and review of laboratory results Abnormal [facility] Potassium [Moles/Vol] 4.0 mmol/L 3.5 - 5.1 mmol/L [facility] Protein [Mass/Vol] 6.4 g/dL 6.3 - 8.2 g/dL [facility] Sodium [Moles/Vol] 134 mmol/L Low 135 - 145 mmol/L [facility] Urea nitrogen [Mass/Vol] 10 mg/dL 9 - 20 mg/dL [facility] Laboratory - Chemistry and C hemistry - challengeon 05-20-2024 Glucose [Mass/Vol] 233 mg/dL High 70 - 100 mg/dL [facility] Glucose [Mass/Vol] 315 mg/dL High 70 - 100 mg/dL [facility] Glucose [Mass/Vol] 255 mg/dL High 70 - 100 mg/dL [facility] Glucose [Mass/Vol] 275 mg/dL High 70 - 100 mg/dL [facility] Laboratory - Microbiology an d Antimicrobial susceptibilityOrdered By: Codie Tang on 05-20-2024 Bacteria identified Cx Nom (U) >100,000 CFU/mL Proteus mirabilis Abnormal [facility] Comment on above: For identification a nd/or sensitivity, refer to culture collected on: 05/18/2024 at 0016 ([id number]). Laboratory - Microbiology an d Antimicrobial susceptibilityon 05-20-2024 Bacteria identified Cx Nom (U) >100,000 CFU/mL Proteus mirabilis Abnormal [facility] Comment on above: This phenotype is osborn ggestive of an ESBL-producing organism. Treatment with beta-lactam antibiotics other than carbapenems may not be effective. No Panel Informationon 05-20 Interpretation and review of laboratory results Abnormal [facility] Performed by: [facility] [employer] [facility], [address] [place], [place] [id number] CLIA ID: [id number] [facility] Interpretation and review of laboratory results Abnormal [facility] Performed by: [facility] [employer] [facility], [address] [place] [id number] CLIA ID: [id number] [facility] Interpretation and review of laboratory results Abnormal [facility] Performed by: [facility], [address] [facility] [address] CLIA ID: [id number] [facility] Interpretation and review of laboratory results Abnormal [facility] Performed by: [facility], [address] [facility] [address] CLIA ID: [id number] [facility] CBC panel Auto (Bld)on 05-19 Erythrocyte distribution width (RBC) [Ratio] 14.9 % 11.5 - 15.0 % [facility] Hematocrit (Bld) [Volume fraction] 35.8 % Low 40.0 - 52.0 % [facility] Hemoglobin (Bld) [Mass/Vol] 12.0 g/dL Low 13.0 - 18.0 g/dL [facility] Interpretation and review of laboratory results Abnormal [facility] MCH (RBC) [Entitic mass] 30.3 pg 26. 0 - 34.0 pg [facility] MCHC (RBC) [Mass/Vol] 33.5 % 30.5 - 36.0 % [facility] MCV (RBC) [Entitic vol] 90.4 fL 77.0 - 99.0 fL [facility] Platelet mean volume (Bld) [Entitic vol] 10.6 fL 9.0 - 12.7 fL [facility] Platelets (Bld) [#/Vol] 212 10*3/uL 140 - 440 10*3/uL [facility] RBC (Bld) [#/Vol] 3.96 10*6/uL Low 4.40 - 5.9 0 10*6/uL [facility] WBC (Bld) [#/Vol] 5.4 10*3/uL 3.6 - 10.7 10*3/uL [facility] Comprehensive metabolic 1998 panelOrdered By: Harman Dempsey on 05-19-2024 Albumin [Mass/Vol] 3.1 g/dL Low 3.5 - 5.0 g/dL [facility] ALP [Catalytic activity/Vol] 155 U/L High 38 - 126 U/L [facility] ALT [Catalytic activity/Vol] 19 U/L 0 - 49 U/L [facility] Anion gap [Moles/Vol] 3 mmol/L 3 - 13 mmol/L [facility] AST [Catalytic activity/Vol] 29 U/L 15 - 46 U/L [facility] Bilirubin [Mass/Vol] 0.6 mg/dL 0.2 - 1 .3 mg/dL [facility] Calcium [Mass/Vol] 8.4 mg/dL 8.4 - 10. 4 mg/dL [facility] Chloride [Moles/Vol] 110 mmol/L High 98 - 10 7 mmol/L [facility] CO2 [Moles/Vol] 21 mmol/L Low 22 - 30 mmol/L [facility] Creatinine [Mass/Vol] 0.44 mg/dL Low 0.66 - 1.25 mg/dL [facility] GFR/1.73 sq M.predicted (S/P/Bld) [Vol rate/Area] - PINF [facility] Comment on above: Calculation based on the Chronic Kidney Disease Epidemiology Collaboration (CKD-EPI) equation refit without adjustment for race Glucose [Mass/Vol] 212 mg/dL High 70 - 100 mg/dL [facility] Interpretation and review of laboratory results Abnormal [facility] Potassium [Moles/Vol] 3.4 mmol/L Low 3.5 - 5.1 mmol/L [facility] Protein [Mass/Vol] 6.3 g/dL 6.3 - 8.2 g/dL [facility] Sodium [Moles/Vol] 134 mmol/L Low 135 - 145 mmol/L [facility] Urea nitrogen [Mass/Vol] 11 mg/dL 9 - 20 mg/dL [facility] Laboratory - Chemistry and C hemistry - challengeon 05-19-2024 Glucose [Mass/Vol] 292 mg/dL High 70 - 100 mg/dL [facility] Glucose [Mass/Vol] 294 mg/dL High 70 - 100 mg/dL [facility] Glucose [Mass/Vol] 333 mg/dL High 70 - 100 mg/dL [facility] Glucose [Mass/Vol] 274 mg/dL High 70 - 100 mg/dL [facility] No Panel Informationon 05-19 Interpretation and review of laboratory results Abnormal [facility] Performed by: [facility] [employer] [facility], [address] [place] [id number] CLIA ID: [id number] [facility] Interpretation and review of laboratory results Abnormal [facility] Performed by: [facility], [address] [place] [id number] CLIA ID: [id number] [facility] Interpretation and review of laboratory results Abnormal [facility] Performed by: [facility], [address] [place] [id number] CLIA ID: [id number] [facility] Interpretation and review of laboratory results Abnormal [facility] Performed by: [facility], [address] [place] [id number] CLIA ID: [id number] [facility] Basic metabolic 1998 panelon 05-18-2024 Anion gap [Moles/Vol] 5 mmol/L 3 - 13 mmol/L [facility] Calcium [Mass/Vol] 8.6 mg/dL 8.4 - 10. 4 mg/dL [facility] Chloride [Moles/Vol] 108 mmol/L High 98 - 10 7 mmol/L [facility] CO2 [Moles/Vol] 22 mmol/L 22 - 30 mmol/L [facility] Creatinine [Mass/Vol] 0.64 mg/dL Low 0.66 - 1.25 mg/dL [facility] GFR/1.73 sq M.predicted (S/P/Bld) [Vol rate/Area] - PINF [facility] Comment on above: Calculation based on the Chronic Kidney Disease Epidemiology Collaboration (CKD-EPI) equation refit without adjustment for race Glucose [Mass/Vol] 143 mg/dL High 70 - 100 mg/dL [facility] Interpretation and review of laboratory results Abnormal [facility] Potassium [Moles/Vol] 4.5 mmol/L 3.5 - 5.1 mmol/L [facility] Sodium [Moles/Vol] 136 mmol/L 135 - 145 mmol/L [facility] Urea nitrogen [Mass/Vol] 13 mg/dL 9 - 20 mg/dL [facility] Slightly Hemolyzed. Interpret K+ with caution. [facility] CBC W Auto Differential pane l (Bld)Ordered By: Gayle Stafford on 05-18-2024 Basophils (Bld) [#/Vol] 0.1 10*3/uL 0.0 - 0.2 10*3/uL [facility] Basophils/100 WBC (Bld) 0.8 % 0.0 - 2.0 % [facility] Eosinophils (Bld) [#/Vol] 0.4 10*3/uL 0.0 - 0.5 10*3/uL [facility] Eosinophils/100 WBC (Bld) 5.4 % 0.0 - 6.0 % [facility] Erythrocyte distribution width (RBC) [Ratio] 15.6 % High 11.5 - 15.0 % [facility] Hematocrit (Bld) [Volume fraction] 38.7 % Low 40.0 - 52.0 % [facility] Hemoglobin (Bld) [Mass/Vol] 12.5 g/dL Low 13.0 - 18.0 g/dL [facility] Immature granulocytes (Bld) [#/Vol] 0.0 10*3/uL NINF - 0.1 10*3/uL [facility] Immature granulocytes/100 WBC (Bld) 0.4 % 0.0 - 2.0 % [facility] Interpretation and review of laboratory results Abnormal [facility] Lymphocytes (Bld) [#/Vol] 2.2 10*3/uL 1.0 - 4.3 10*3/uL [facility] Lymphocytes/100 WBC (Bld) 28.0 % 15.0 - 45.0 % [facility] MCH (RBC) [Entitic mass] 30.3 pg 26. 0 - 34.0 pg [facility] MCHC (RBC) [Mass/Vol] 32.3 % 30.5 - 36.0 % [facility] MCV (RBC) [Entitic vol] 93.7 fL 77.0 - 99.0 fL [facility] Monocytes (Bld) [#/Vol] 0.7 10*3/uL 0.0 - 0.9 10*3/uL [facility] Monocytes/100 WBC (Bld) 9.6 % 5.0 - 13.0 % [facility] Neutrophils (Bld) [#/Vol] 4.3 10*3/uL 1.8 - 7.5 10*3/uL [facility] Neutrophils/100 WBC (Bld) 55.8 % 38.0 - 82.0 % [facility] Nucleated RBC/100 WBC (Bld) [Ratio] 0.0 % [facility] Platelet mean volume (Bld) [Entitic vol] 10.9 fL 9.0 - 12.7 fL [facility] Platelets (Bld) [#/Vol] 222 10*3/uL 140 - 440 10*3/uL [facility] RBC (Bld) [#/Vol] 4.13 10*6/uL Low 4.40 - 5.9 0 10*6/uL [facility] WBC (Bld) [#/Vol] 7.7 10*3/uL 3.6 - 10.7 10*3/uL [facility] Laboratory - Chemistry and C hemistry - challengeon 05-18-2024 Glucose [Mass/Vol] 140 mg/dL High 70 - 100 mg/dL [facility] No Panel Informationon 05-18 Interpretation and review of laboratory results Abnormal [facility] Performed by: [facility], [address] [place] [address], [place] [address] CLIA ID: [id number] [facility] Urinalysis complete panel (U )Ordered By: Franchesca Garnica on 05-18-2024 Bacteria LM.HPF (Urine sed) [#/Area] Many Abnormal Negative /HPF [facility] Bilirubin Ql (U) Negative Negative mg/dL [facility] Clarity (U) Turbid Abnormal Clear [facility] Color (U) Yellow Lt. Yellow [facility] Epithelial cells.squamous LM.HPF (Urine sed) [#/Area] Negative [facility] h Glucose Ql (U) Normal Normal (<70) mg/dL [facility] Hemoglobin Ql (U) 0.5 mg/dL Abnormal Negative [facility] Hyaline casts Auto (Urine sed) [#/Area] Negative Negative /LPF [facility] Interpretation and review of laboratory results Abnormal [facility] Ketones (U) [Mass/Vol] Negative Negat mary grace mg/dL [facility] Leukocyte clumps LM.HPF (Urine sed) [#/Area] Many Abnormal Negative /HPF [facility] Leukocyte esterase Test strip Ql (U) 500 Abnormal Negative Da/uL [facility] Mucus LM.HPF (Urine sed) [#/Area] Few Negative /LPF [facility] Nitrite Ql (U) Positive Abnormal Negative [facility] th pH (U) 6.5 [pH] 5.0 - 8.0 pH [facility] Protein (U) [Mass/Vol] 50 mg/dL Abnormal Negative [facility] RBC LM.HPF (Urine sed) [#/Area] 51-100 Abnormal [facility] Specific gravity (U) [Rel density] 1.015 1.005 - 1.030 [facility] Urobilinogen (U) [Mass/Vol] Normal Normal (0-1) mg/dL [facility] WBC LM.HPF (Urine sed) [#/Area] /[HPF] Abnormal [facility] Basic metabolic 1998 panelon 05-17-2024 Anion gap [Moles/Vol] 6 mmol/L 3 - 13 mmol/L [facility] Calcium [Mass/Vol] 8.7 mg/dL 8.4 - 10. 4 mg/dL [facility] Chloride [Moles/Vol] 109 mmol/L High 98 - 10 7 mmol/L [facility] CO2 [Moles/Vol] 20 mmol/L Low 22 - 30 mmol/L [facility] Creatinine [Mass/Vol] 0.68 mg/dL 0.66 - 1.25 mg/dL [facility] GFR/1.73 sq M.predicted (S/P/Bld) [Vol rate/Area] - PINF [facility] Comment on above: Calculation based on the Chronic Kidney Disease Epidemiology Collaboration (CKD-EPI) equation refit without adjustment for race Glucose [Mass/Vol] 172 mg/dL High 70 - 100 mg/dL [facility] Interpretation and review of laboratory results Abnormal [facility] Potassium [Moles/Vol] 4.4 mmol/L 3.5 - 5.1 mmol/L [facility] Sodium [Moles/Vol] 136 mmol/L 135 - 145 mmol/L [facility] Urea nitrogen [Mass/Vol] 12 mg/dL 9 - 20 mg/dL [facility] CBC W Auto Differential pane l (Bld)Ordered By: Janice Carey on 05-17-2024 Basophils (Bld) [#/Vol] 0.0 10*3/uL 0.0 - 0.2 10*3/uL [facility] Basophils/100 WBC (Bld) 0.8 % 0.0 - 2.0 % [facility] Eosinophils (Bld) [#/Vol] 0.3 10*3/uL 0.0 - 0.5 10*3/uL [facility] Eosinophils/100 WBC (Bld) 7.4 % High 0.0 - 6.0 % [facility] Erythrocyte distribution width (RBC) [Ratio] 16.8 % High 11.5 - 15.0 % [facility] Hematocrit (Bld) [Volume fraction] 60.0 % High 40.0 - 52.0 % [facility] Hemoglobin (Bld) [Mass/Vol] 19.6 g/dL High 13.0 - 18.0 g/dL [facility] Immature granulocytes (Bld) [#/Vol] 0.0 10*3/uL NINF - 0.1 10*3/uL [facility] Immature granulocytes/100 WBC (Bld) 0.3 % 0.0 - 2.0 % [facility] Interpretation and review of laboratory results Abnormal [facility] Lymphocytes (Bld) [#/Vol] 1.0 10*3/uL 1.0 - 4.3 10*3/uL [facility] Lymphocytes/100 WBC (Bld) 26.9 % 15.0 - 45.0 % [facility] MCH (RBC) [Entitic mass] 30.1 pg 26. 0 - 34.0 pg [facility] MCHC (RBC) [Mass/Vol] 32.7 % 30.5 - 36.0 % [facility] MCV (RBC) [Entitic vol] 92.2 fL 77.0 - 99.0 fL [facility] Monocytes (Bld) [#/Vol] 0.2 10*3/uL 0.0 - 0.9 10*3/uL [facility] Monocytes/100 WBC (Bld) 6.8 % 5.0 - 13.0 % [facility] Neutrophils (Bld) [#/Vol] 2.0 10*3/uL 1.8 - 7.5 10*3/uL [facility] Neutrophils/100 WBC (Bld) 57.8 % 38.0 - 82.0 % [facility] Nucleated RBC/100 WBC (Bld) [Ratio] 0.0 % [facility] Platelet mean volume (Bld) [Entitic vol] 9.9 fL 9.0 - 12.7 fL [facility] Platelets (Bld) [#/Vol] 105 10*3/uL Low 140 - 440 10*3/uL [facility] RBC (Bld) [#/Vol] 6.51 10*6/uL High 4.40 - 5.9 0 10*6/uL [facility] WBC (Bld) [#/Vol] 3.5 10*3/uL Low 3.6 - 10.7 10*3/uL [facility] Laboratory - Chemistry and C hemistry - challengeon 05-17-2024 Lactate [Moles/Vol] 1.4 mmol/L 0.7 - 2. 0 mmol/L [facility] No Panel Informationon 05-17 Interpretation and review of laboratory results Normal [facility] Urinalysis complete panel (U )Ordered By: Madison Novak on 05-17-2024 Bacteria LM.HPF (Urine sed) [#/Area] Many Abnormal Negative /HPF [facility] Bilirubin Ql (U) Negative Negative mg/dL [facility] Clarity (U) Turbid Abnormal Clear [facility] Color (U) Yellow Lt. Yellow [facility] Epithelial cells.squamous LM.HPF (Urine sed) [#/Area] Negative [facility] h Glucose Ql (U) Normal Normal (<70) mg/dL [facility] Hemoglobin Ql (U) 1.0 mg/dL Abnormal Negative [facility] Interpretation and review of laboratory results Abnormal [facility] Ketones (U) [Mass/Vol] Negative Negat mary grace mg/dL [facility] Leukocyte esterase Test strip Ql (U) 500 Abnormal Negative Da/uL [facility] Mucus LM.HPF (Urine sed) [#/Area] Few Negative /LPF [facility] Nitrite Ql (U) Positive Abnormal Negative [facility] th pH (U) 8.0 [pH] 5.0 - 8.0 pH [facility] Protein (U) [Mass/Vol] 100 mg/dL Abnormal Negative [facility] RBC LM.HPF (Urine sed) [#/Area] 11-25 Abnormal [facility] Specific gravity (U) [Rel density] 1.016 1.005 - 1.030 [facility] Triple phosphate crystals LM.HPF (Urine sed) [#/Area] Few Abnormal Negative /HPF [facility] Urobilinogen (U) [Mass/Vol] Normal Normal (0-1) mg/dL [facility] WBC LM.HPF (Urine sed) [#/Area] /[HPF] Abnormal [facility] Progress Noteson 05-15-2024 [facility]ia[facility] Authentication Interface Message Text HISTORY OF PRESENT ILLNESS ----- 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 HIPAA: Verbal permission granted from patient to discuss case, including protected health information, in front of family / friends in room at the time of the evaluation. Anmol Reynolds is a very pleasant 63 year old male here as new patient for a second opinion of MRI results. In 2019, pt had his first back surgery performed by [facility] which was an interbody fusion. 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 At that point, the hospital took the hardware out and did not replace it with the goal of treating the infection. 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 After the infection was treated, [facility] extended his fusion, decompressed the back, and [...] Resource Strain: Low Risk (04/24/2023) Received from [facility] Overall Financial Resource Strain (CARDIA) Difficulty of Paying Living Expenses: Not hard at all Food Insecurity: No Food Insecurity (05/05/2024) Received from [facility] Hunger Vital Sign Worried About Running Out of Food in the Last Year: Never true Ran Out of Food in the Last Year: Never true Transportation Needs: No Transportation Needs (05/05/2024) Received from [facility] PRAPARE - Transportation Lack of Transportation (Medical): No Lack of Transportation (Non-Medical): No Intimate Partner Violence: Not At Risk (05/05/2024) Received from [facility] Humiliation, Afraid, Rape, and Kick questionnaire Fear [...] heal (more content not included)... Normal [facility] XR SACRUM-COCCYX 3 VIEWSon 0 05-12-2024 [...] 04:02 PM CLINICAL HISTORY: upright scoli - [employer] DIAGNOSIS: Sacral insufficiency fracture, initial encounter ORDERING PROVIDER: [employer] NOTE: Best possible - Upright in chair, right lateral due to limitations of room layout and equipment COMPARISON: None FINDINGS: Dextroscoliosis of thoracic spine is noted. Luevano angle measures 10.0 degrees. Story is at T8 level. Fusion of lumbar [...] considered. Ureteral stents are noted. MACRO: None [facility] XR Sacrum and Coccyx ViewsOr dered By: Juan William on 05-12-2024 [facility] Work Phone: XR Thoracic and lumbar spine 2 Views for scoliosison 05-12-2024 EXAMINATION: XR SCOLIOSIS PA + LAT 2 OR 3 VIEWS 05/11/2024 04:02 PM CLINICAL HISTORY: upright scoli - [employer] DIAGNOSIS: Sacral insufficiency fracture, initial encounter ORDERING PROVIDER: [employer] NOTE: Best possible - Upright in chair, right lateral due to limitations of room layout and equipment COMPARISON: None FINDINGS: Dextroscoliosis of thoracic spine is noted. Luevano angle measures 10.0 degrees. Story is at T8 level. Fusion of lumbar [...] 04:02 PM CLINICAL HISTORY: upright scoli - [employer] DIAGNOSIS: Sacral insufficiency fracture, initial encounter ORDERING PROVIDER: [employer] NOTE: Best possible - Upright in chair, right lateral due to limitations of room layout and equipment COMPARISON: None FINDINGS: Dextroscoliosis of thoracic spine is noted. Luevano angle measures 10.0 degrees. Story is at T8 level. Fusion of lumbar [...] Coccyx Viewson 05-11-2024 Radiology Study observation (narrative) [facility] XR Thoracic and lumbar spine 2 Views for scoliosison 05-11-2024 Radiology Study observation (narrative) [facility] Telephone Encounteron 2023 [facility] Community Liaison Authentication Interface Message Text Pt calling requesting provider to follow up regarding MRI. Pt was unable to provide telephone, address or SSN. No information was provided at this time. Normal [facility] Basic metabolic 1998 panelon 05-06-2024 Anion gap [Moles/Vol] 8 mmol/L 3 - 13 mmol/L [facility] Calcium [Mass/Vol] 8.4 mg/dL 8.4 - 10. 4 mg/dL [facility] [employer] Chloride [Moles/Vol] 105 mmol/L 98 - 10 7 mmol/L [facility] CO2 [Moles/Vol] 23 mmol/L 22 - 30 mmol/L [facility] Creatinine [Mass/Vol] 0.62 mg/dL Low 0.66 - 1.25 mg/dL [facility] GFR/1.73 sq M.predicted (S/P/Bld) [Vol rate/Area] - PINF [facility] Comment on above: Calculation based on the Chronic Kidney Disease Epidemiology Collaboration (CKD-EPI) equation refit without adjustment for race Glucose [Mass/Vol] 416 mg/dL High 70 - 100 mg/dL [facility] Interpretation and review of laboratory results Abnormal [facility] Potassium [Moles/Vol] 4.1 mmol/L 3.5 - 5.1 mmol/L [facility] Sodium [Moles/Vol] 136 mmol/L 135 - 145 mmol/L [facility] Urea nitrogen [Mass/Vol] 14 mg/dL 9 - 20 mg/dL [facility] CBC panel Auto (Bld)on 05-06 Erythrocyte distribution width (RBC) [Ratio] 14.5 % 11.5 - 15.0 % [facility] Hematocrit (Bld) [Volume fraction] 36.0 % Low 40.0 - 52.0 % [facility] Hemoglobin (Bld) [Mass/Vol] 12.1 g/dL Low 13.0 - 18.0 g/dL [facility] Interpretation and review of laboratory results Abnormal [facility] MCH (RBC) [Entitic mass] 30.3 pg 26. 0 - 34.0 pg [facility] MCHC (RBC) [Mass/Vol] 33.6 % 30.5 - 36.0 % [facility] MCV (RBC) [Entitic vol] 90.2 fL 77.0 - 99.0 fL [facility] Platelet mean volume (Bld) [Entitic vol] 10.8 fL 9.0 - 12.7 fL [facility] Platelets (Bld) [#/Vol] 273 10*3/uL 140 - 440 10*3/uL [facility] RBC (Bld) [#/Vol] 3.99 10*6/uL Low 4.40 - 5.9 0 10*6/uL [facility] WBC (Bld) [#/Vol] 6.8 10*3/uL 3.6 - 10.7 10*3/uL [facility] Laboratory - Chemistry and C hemistry - challengeon 05-06-2024 Glucose [Mass/Vol] 260 mg/dL High 70 - 100 mg/dL [facility] Glucose [Mass/Vol] 428 mg/dL High 70 - 100 mg/dL [facility] Glucose [Mass/Vol] 359 mg/dL High 70 - 100 mg/dL [facility] No Panel Informationon 05-06 Interpretation and review of laboratory results Abnormal [facility] Performed by: [facility], [address] [place], [place] [id number] CLIA ID: [id number] [facility] Interpretation and review of laboratory results Abnormal [facility] Performed by: [facility], [address] [place] [id number] CLIA ID: [id number] [facility] [employer] [facility] [employer] Interpretation and review of laboratory results Abnormal [facility] [employer] Performed by: [facility], [address] [place] [id number] CLIA ID: [id number] [facility] [employer] [facility] [employer] Laboratory - Chemistry and C hemistry - challengeon 05-05-2024 Glucose [Mass/Vol] 176 mg/dL High 70 - 100 mg/dL [facility] [employer] Glucose [Mass/Vol] 166 mg/dL High 70 - 100 mg/dL [facility] [employer] Glucose [Mass/Vol] 236 mg/dL High 70 - 100 mg/dL [facility] [employer] No Panel Informationon 05-05 Interpretation and review of laboratory results Abnormal [facility] [employer] Performed by: [facility], [address] [place] [id number] CLIA ID: [id number] [facility] [employer] [facility] [employer] There is no interpretation needed for this exam. IMAGING Interpretation and review of laboratory results Abnormal [facility] [employer] Performed by: [facility], [address] [place] [id number] CLIA ID: [id number] [facility] [employer] [facility] [employer] Interpretation and review of laboratory results Abnormal [facility] [employer] Performed by: [facility], [address] [place] [id number] CLIA ID: [id number] [facility] [employer] Telephone Encounteron 2023 [facility] Community Liaison Authentication Interface Message Text Called pt and discussed his MRI L spine results. He has SCI rehab follow up scheduled. Recommended Spine Surgery opinion. No change in clinical condition from last visit. Vaishali Pierre, DO Normal [facility]iaison Authentication Interface Message Text Called pt again. Staff at the [facility] stated he was unable to come to the phone and asked for call back later in the day. Vaishali Pierre, DO Normal [facility] Telephone Encounteron 2023 [facility]iaison Authentication Interface Message Text Called pt and reached staff, but he was unable to come to the phone. Will try again tomorrow. Vaishali Pierre, DO Normal [facility] CBC W Auto Differential pane l (Bld)on 04-20-2024 Erythrocyte distribution width (RBC) [Ratio] 14.8 % 11.5 - 15.0 % [facility] Hematocrit (Bld) [Volume fraction] 34.8 % Low 40.0 - 52.0 % [facility] Hemoglobin (Bld) [Mass/Vol] 11.3 g/dL Low 13.0 - 18.0 g/dL [facility] Interpretation and review of laboratory results Abnormal [facility] IPF 7 [facility] MCH (RBC) [Entitic mass] 30.5 pg 26. 0 - 34.0 pg [facility] MCHC (RBC) [Mass/Vol] 32.5 % 30.5 - 36.0 % [facility] MCV (RBC) [Entitic vol] 94.1 fL 77.0 - 99.0 fL [facility] Platelet mean volume (Bld) [Entitic vol] 11.6 fL 9.0 - 12.7 fL [facility] Platelets (Bld) [#/Vol] 121 10*3/uL Low 140 - 440 10*3/uL [facility] RBC (Bld) [#/Vol] 3.70 10*6/uL Low 4.40 - 5.9 0 10*6/uL [facility] WBC (Bld) [#/Vol] 6.4 10*3/uL 3.6 - 10.7 10*3/uL [facility] Comprehensive metabolic 1998 panelon 04-20-2024 Albumin [Mass/Vol] 2.5 g/dL Low 3.5 - 5.0 g/dL [facility] ALP [Catalytic activity/Vol] 94 U/L 38 - 126 U/L [facility] ALT [Catalytic activity/Vol] 15 U/L 0 - 49 U/L [facility] Anion gap [Moles/Vol] 6 mmol/L 3 - 13 mmol/L [facility] AST [Catalytic activity/Vol] 19 U/L 15 - 46 U/L [facility] Bilirubin [Mass/Vol] 0.4 mg/dL 0.2 - 1 .3 mg/dL [facility] Calcium [Mass/Vol] 7.6 mg/dL Low 8.4 - 10. 4 mg/dL [facility] Chloride [Moles/Vol] 108 mmol/L High 98 - 10 7 mmol/L [facility] CO2 [Moles/Vol] 23 mmol/L 22 - 30 mmol/L [facility] Creatinine [Mass/Vol] 0.44 mg/dL Low 0.66 - 1.25 mg/dL [facility] GFR/1.73 sq M.predicted MDRD (S/P/Bld) [Vol rate/Area] - PINF [facility] Glucose [Mass/Vol] 284 mg/dL High 70 - 100 mg/dL [facility] Interpretation and review of laboratory results Abnormal [facility] Potassium [Moles/Vol] 3.8 mmol/L 3.5 - 5.1 mmol/L [facility] Protein [Mass/Vol] 5.6 g/dL Low 6.3 - 8.2 g/dL [facility] Sodium [Moles/Vol] 138 mmol/L 135 - 145 mmol/L [facility] Urea nitrogen [Mass/Vol] 14 mg/dL 9 - 20 mg/dL [facility] Laboratory - Chemistry and C hemistry - challengeon 04-20-2024 Glucose [Mass/Vol] 282 mg/dL High 70 - 100 mg/dL [facility] Glucose [Mass/Vol] 398 mg/dL High 70 - 100 mg/dL [facility] Glucose [Mass/Vol] 323 mg/dL High 70 - 100 mg/dL [facility] Magnesium [Mass/Vol] 1.8 mg/dL 1.6 - 2 .3 mg/dL [facility] Laboratory - Hematology and Cell countson 04-20-2024 Eosinophils (Bld) [#/Vol] 0.3 10*3/uL 0.0 - 0.5 10*3/uL [facility] Eosinophils/100 WBC (Bld) 5 % 0 - 6 % [facility] Lymphocytes (Bld) [#/Vol] 2.0 10*3/uL 1.0 - 4.3 10*3/uL [facility] Lymphocytes/100 WBC (Bld) 32 % 15 - 45 % [facility] Monocytes (Bld) [#/Vol] 0.6 10*3/uL 0.0 - 0.9 10*3/uL [facility] Monocytes/100 WBC (Bld) 10 % 5 - 13 % [facility] Neutrophils (Bld) [#/Vol] 3.4 10*3/uL 1.8 - 7.5 10*3/uL [facility] RBC morphology finding Nom (Bld) Normal [facility] Segmented neutrophils/100 WBC (Bld) 53 % 38 - 82 % [facility] Laboratory - Microbiology an d Antimicrobial susceptibilityon 04-20-2024 SARS-CoV-2 (COVID-19) Ag IA.rapid Ql (Resp) Negative Negative [facility] No Panel Informationon 04-20 Interpretation and review of laboratory results Abnormal [facility] CV EPIPHANY [facility] RADIOLOGY SYSTEM [facility] RADIOLOGY [facility] Interpretation and review of laboratory results Abnormal [facility] Radiology Study observation (narrative) [facility] Interpretation and review of laboratory results Abnormal [facility] Eosinophils Manual 5 High 0 - 1 [facility] Interpretation and review of laboratory results Abnormal [facility] Lymphocytes Manual 32 [facility] Monocytes Manual 10 [facility] Neutrophils Manual 53 [facility] Interpretation and review of laboratory results Normal [facility] No Panel InformationOrdered By: Jax Wiggins on 04-20-2024 P [place] 10 degrees [facility] [employer] Work Phone: [phone] DC Interval 159 ms [facility] [employer] Work Phone: [phone] QRS [place] 28 degrees [facility] [employer] Work Phone: QRSD Interval 96 ms [facility] [employer] Work Phone: [phone] QT Interval 426 ms [facility] [employer] Work Phone: QTC Interval 477 ms [facility] [employer] Work Phone: T Wave [place] 28 degrees [facility] [employer] Work Phone: [facility] [employer] Work Phone: [phone] No Panel InformationOrdered By: Marie Howard on 04-20-2024 [facility] [employer] Work Phone: Phosphate [Moles/Vol]on 04-04 Phosphate [Mass/Vol] 2.8 mg/dL 2.5 - 4 .5 mg/dL [facility] SARS-CoV-2 (COVID-19) Ag IA. rapid Ql (Resp)on 04-20-2024 Interpretation and review of laboratory results Normal [facility] Vital signsOrdered By: Seth Wiggins on 04-20-2024 Heart rate 75 /min bpm [facility] [employer] Work Phone: CBC W Auto Differential pane l (Bld)on 04-19-2024 Erythrocyte distribution width (RBC) [Ratio] 14.8 % 11.5 - 15.0 % [facility] Hematocrit (Bld) [Volume fraction] 35.0 % Low 40.0 - 52.0 % [facility] Hemoglobin (Bld) [Mass/Vol] 11.6 g/dL Low 13.0 - 18.0 g/dL [facility] IPF 8 [facility] MCH (RBC) [Entitic mass] 30.6 pg 26. 0 - 34.0 pg [facility] MCHC (RBC) [Mass/Vol] 33.1 % 30.5 - 36.0 % [facility] MCV (RBC) [Entitic vol] 92.3 fL 77.0 - 99.0 fL [facility] Platelet mean volume (Bld) [Entitic vol] 11.6 fL 9.0 - 12.7 fL [facility] Platelets (Bld) [#/Vol] 88 10*3/uL Low 140 - 440 10*3/uL [facility] RBC (Bld) [#/Vol] 3.79 10*6/uL Low 4.40 - 5.9 0 10*6/uL [facility] WBC (Bld) [#/Vol] 9.2 10*3/uL 3.6 - 10.7 10*3/uL [facility] Comprehensive metabolic 1998 panelon 04-19-2024 Albumin [Mass/Vol] 2.7 g/dL Low 3.5 - 5.0 g/dL [facility] ALP [Catalytic activity/Vol] 119 U/L 38 - 126 U/L [facility] ALT [Catalytic activity/Vol] 16 U/L 0 - 49 U/L [facility] Anion gap [Moles/Vol] 5 mmol/L 3 - 13 mmol/L [facility] AST [Catalytic activity/Vol] 19 U/L 15 - 46 U/L [facility] Bilirubin [Mass/Vol] 0.6 mg/dL 0.2 - 1 .3 mg/dL [facility] Calcium [Mass/Vol] 7.9 mg/dL Low 8.4 - 10. 4 mg/dL [facility] Chloride [Moles/Vol] 107 mmol/L 98 - 10 7 mmol/L [facility] CO2 [Moles/Vol] 26 mmol/L 22 - 30 mmol/L [facility] Creatinine [Mass/Vol] 0.44 mg/dL Low 0.66 - 1.25 mg/dL [facility] GFR/1.73 sq M.predicted MDRD (S/P/Bld) [Vol rate/Area] - PINF [facility] Glucose [Mass/Vol] 153 mg/dL High 70 - 100 mg/dL [facility] Interpretation and review of laboratory results Abnormal [facility] Potassium [Moles/Vol] 3.5 mmol/L 3.5 - 5.1 mmol/L [facility] Protein [Mass/Vol] 6.0 g/dL Low 6.3 - 8.2 g/dL [facility] Sodium [Moles/Vol] 138 mmol/L 135 - 145 mmol/L [facility] Urea nitrogen [Mass/Vol] 14 mg/dL 9 - 20 mg/dL [facility] Laboratory - Chemistry and C hemistry - challengeon 04-19-2024 Glucose [Mass/Vol] 305 mg/dL High 70 - 100 mg/dL [facility] Glucose [Mass/Vol] 232 mg/dL High 70 - 100 mg/dL [facility] Glucose [Mass/Vol] 163 mg/dL High 70 - 100 mg/dL [facility] Glucose [Mass/Vol] 155 mg/dL High 70 - 100 mg/dL [facility] Magnesium [Mass/Vol] 1.8 mg/dL 1.6 - 2 .3 mg/dL [facility] Laboratory - Hematology and Cell countson 04-19-2024 Band form neutrophils (Bld) [#/Vol] 0.1 10*3/uL High NINF - 0.0 10*3/uL [facility] Band form neutrophils/100 WBC (Bld) 1 % High NINF - 0 % [facility] Basophils (Bld) [#/Vol] 0.1 10*3/uL 0.0 - 0.2 10*3/uL [facility] Basophils/100 WBC (Bld) 1 % 0 - 2 % [facility] Eosinophils (Bld) [#/Vol] 0.4 10*3/uL 0.0 - 0.5 10*3/uL [facility] Eosinophils/100 WBC (Bld) 4 % 0 - 6 % [facility] Lymphocytes (Bld) [#/Vol] 1.2 10*3/uL 1.0 - 4.3 10*3/uL [facility] Lymphocytes/100 WBC (Bld) 13 % Low 15 - 45 % [facility] Monocytes (Bld) [#/Vol] 0.7 10*3/uL 0.0 - 0.9 10*3/uL [facility] Monocytes/100 WBC (Bld) 8 % 5 - 13 % [facility] Neutrophils (Bld) [#/Vol] 6.7 10*3/uL 1.8 - 7.5 10*3/uL [facility] RBC morphology finding Nom (Bld) abnormal [facility] Segmented neutrophils/100 WBC (Bld) 72 % 38 - 82 % [facility] Stomatocytes LM Ql (Bld) Slight Abnormal (none) [facility] Variant lymphocytes (Bld) [#/Vol] 0.1 10*3/uL High NINF - 0.0 10*3/uL [facility] Variant lymphocytes/100 WBC (Bld) 1 % High NINF - 0 % [facility] No Panel Informationon 04-19 Interpretation and review of laboratory results Abnormal [facility] Interpretation and review of laboratory results Abnormal [facility] Interpretation and review of laboratory results Abnormal [facility] Interpretation and review of laboratory results Abnormal [facility] Atypical Lymphocytes Manual 1 [facility] Bands Manual 1 [facility] Basophils Manual 1 [facility] Eosinophils Manual 4 High 0 - 1 [facility] Interpretation and review of laboratory results Abnormal [facility] Lymphocytes Manual 13 [facility] Monocytes Manual 8 [facility] Neutrophils Manual 71 [facility] Interpretation and review of laboratory results Normal [facility] Phosphate [Moles/Vol]on 04-04 Phosphate [Mass/Vol] 3.2 mg/dL 2.5 - 4 .5 mg/dL [facility] Bacteria identified Cx Nom ( Bld)on 04-18-2024 Interpretation and review of laboratory results Abnormal [facility] Bacteria identified Cx Nom ( Bld)Ordered By: Yani Martínez on 04-18-2024 Interpretation and review of laboratory results Abnormal [facility] CBC W Auto Differential pane l (Bld)Ordered By: Gricelda Eduardo on 04-18-2024 Erythrocyte distribution width (RBC) [Ratio] 15.0 % 11.5 - 15.0 % [facility] Hematocrit (Bld) [Volume fraction] 36.6 % Low 40.0 - 52.0 % [facility] Hemoglobin (Bld) [Mass/Vol] 12.1 g/dL Low 13.0 - 18.0 g/dL [facility] Interpretation and review of laboratory results Abnormal [facility] IPF 9 [facility] MCH (RBC) [Entitic mass] 30.6 pg 26. 0 - 34.0 pg [facility] MCHC (RBC) [Mass/Vol] 33.1 % 30.5 - 36.0 % [facility] MCV (RBC) [Entitic vol] 92.7 fL 77.0 - 99.0 fL [facility] Platelet mean volume (Bld) [Entitic vol] 11.7 fL 9.0 - 12.7 fL [facility] Platelets (Bld) [#/Vol] 79 10*3/uL Low 140 - 440 10*3/uL [facility] RBC (Bld) [#/Vol] 3.95 10*6/uL Low 4.40 - 5.9 0 10*6/uL [facility] WBC (Bld) [#/Vol] 8.4 10*3/uL 3.6 - 10.7 10*3/uL [facility] Comprehensive metabolic 1998 panelon 04-18-2024 Albumin [Mass/Vol] 2.9 g/dL Low 3.5 - 5.0 g/dL [facility] ALP [Catalytic activity/Vol] 123 U/L 38 - 126 U/L [facility] ALT [Catalytic activity/Vol] 18 U/L 0 - 49 U/L [facility] Anion gap [Moles/Vol] 7 mmol/L 3 - 13 mmol/L [facility] AST [Catalytic activity/Vol] 18 U/L 15 - 46 U/L [facility] Bilirubin [Mass/Vol] 0.8 mg/dL 0.2 - 1 .3 mg/dL [facility] Calcium [Mass/Vol] 7.8 mg/dL Low 8.4 - 10. 4 mg/dL [facility] Chloride [Moles/Vol] 105 mmol/L 98 - 10 7 mmol/L [facility] CO2 [Moles/Vol] 27 mmol/L 22 - 30 mmol/L [facility] Creatinine [Mass/Vol] 0.51 mg/dL Low 0.66 - 1.25 mg/dL [facility] GFR/1.73 sq M.predicted MDRD (S/P/Bld) [Vol rate/Area] - PINF [facility] Glucose [Mass/Vol] 74 mg/dL 70 - 100 mg/dL [facility] Potassium [Moles/Vol] 3.1 mmol/L Low 3.5 - 5.1 mmol/L [facility] Protein [Mass/Vol] 6.0 g/dL Low 6.3 - 8.2 g/dL [facility] Sodium [Moles/Vol] 140 mmol/L 135 - 145 mmol/L [facility] Urea nitrogen [Mass/Vol] 15 mg/dL 9 - 20 mg/dL [facility] Laboratory - Chemistry and C hemistry - challengeon 04-18-2024 Glucose [Mass/Vol] 264 mg/dL High 70 - 100 mg/dL [facility] Glucose [Mass/Vol] 135 mg/dL High 70 - 100 mg/dL [facility] Glucose [Mass/Vol] 144 mg/dL High 70 - 100 mg/dL [facility] Magnesium [Mass/Vol] 1.5 mg/dL Low 1.6 - 2 .3 mg/dL [facility] Glucose [Mass/Vol] 78 mg/dL 70 - 100 mg/dL [facility] Laboratory - Microbiology an d Antimicrobial susceptibilityon 04-18-2024 Bacteria identified Cx Nom (Bld) Morganella morganii Critically abnormal [facility] Bacteria identified Cx Nom (Bld) Providencia stuartii Critically abnormal [facility] Laboratory - Microbiology an d Antimicrobial susceptibilityOrdered By: Yani Martínez on 04-18-2024 Bacteria identified Cx Nom (Bld) Proteus mirabilis Critically abnormal [facility] Bacteria identified Cx Nom (Bld) Providencia stuartii Critically abnormal [facility] Bacteria identified Cx Nom (Bld) Morganella morganii Critically abnormal [facility] Manual differential performe d Ql (Bld)on 04-18-2024 Anisocytosis Ql (Bld) Slight Abnormal (none) [facility] Cells Counted Total (Bld) [#] 100 {cells} [facility] Differential Method Manual differential performed [facility] Eosinophils (Bld) [#/Vol] 0.1 10*3/uL 0.0 - 0.5 10*3/uL [facility] Eosinophils Manual 1 0 - 1 [facility] Eosinophils/100 WBC (Bld) 1 % 0 - 6 % [facility] Hypochromia Ql (Bld) Slight Abnormal (none) [facility] Interpretation and review of laboratory results Abnormal [facility] Leukocyte morphology finding Nom (Bld) Normal [facility] Lymphocytes (Bld) [#/Vol] 1.1 10*3/uL 1.0 - 4.3 10*3/uL [facility] Lymphocytes Manual 13 [facility] Lymphocytes/100 WBC (Bld) 13 % Low 15 - 45 % [facility] Monocytes (Bld) [#/Vol] 0.7 10*3/uL 0.0 - 0.9 10*3/uL [facility] Monocytes Manual 8 [facility] alth Monocytes/100 WBC (Bld) 8 % 5 - 13 % [facility] Neutrophils (Bld) [#/Vol] 6.6 10*3/uL 1.8 - 7.0 10*3/uL [facility] Neutrophils Manual 78 [facility] Platelet morphology finding Nom (Bld) Normal [facility] Segmented neutrophils/100 WBC (Bld) 78 % 38 - 82 % [facility] WBC corrected for nucl RBC (Bld) [#/Vol] 8.4 10*3/uL 3.6 - 10.7 10*3/uL [facility] No Panel Informationon 04-18 Interpretation and review of laboratory results Abnormal [facility] Interpretation and review of laboratory results Abnormal [facility] Interpretation and review of laboratory results Abnormal [facility] Interpretation and review of laboratory results Abnormal [facility] Interpretation and review of laboratory results Normal [facility] Phosphate [Moles/Vol]on 04-04 Interpretation and review of laboratory results Normal [facility] Phosphate [Mass/Vol] 3.8 mg/dL 2.5 - 4 .5 mg/dL [facility] Bacteria identified Cx Nom ( U)Ordered By: Darya Clark on 04-17-2024 Interpretation and review of laboratory results Abnormal [facility] CBC W Auto Differential pane l (Bld)on 04-17-2024 Basophils (Bld) [#/Vol] 0.0 10*3/uL 0.0 - 0.2 10*3/uL [facility] Basophils/100 WBC (Bld) 0.1 % 0.0 - 2.0 % [facility] Eosinophils (Bld) [#/Vol] 0.1 10*3/uL 0.0 - 0.5 10*3/uL [facility] Eosinophils/100 WBC (Bld) 1.4 % 0.0 - 6.0 % [facility] Erythrocyte distribution width (RBC) [Ratio] 14.9 % 11.5 - 15.0 % [facility] Hematocrit (Bld) [Volume fraction] 35.4 % Low 40.0 - 52.0 % [facility] Hemoglobin (Bld) [Mass/Vol] 11.5 g/dL Low 13.0 - 18.0 g/dL [facility] Immature granulocytes (Bld) [#/Vol] 0.0 10*3/uL NINF - 0.1 10*3/uL [facility] Immature granulocytes/100 WBC (Bld) 0.3 % 0.0 - 2.0 % [facility] Interpretation and review of laboratory results Abnormal [facility] IPF 6 [facility] Lymphocytes (Bld) [#/Vol] 1.3 10*3/uL 1.0 - 4.3 10*3/uL [facility] Lymphocytes/100 WBC (Bld) 16.8 % 15.0 - 45.0 % [facility] MCH (RBC) [Entitic mass] 30.0 pg 26. 0 - 34.0 pg [facility] MCHC (RBC) [Mass/Vol] 32.5 % 30.5 - 36.0 % [facility] MCV (RBC) [Entitic vol] 92.4 fL 77.0 - 99.0 fL [facility] Monocytes (Bld) [#/Vol] 0.4 10*3/uL 0.0 - 0.9 10*3/uL [facility] Monocytes/100 WBC (Bld) 5.5 % 5.0 - 13.0 % [facility] Neutrophils (Bld) [#/Vol] 6.0 10*3/uL 1.8 - 7.5 10*3/uL [facility] Neutrophils/100 WBC (Bld) 75.9 % 38.0 - 82.0 % [facility] Nucleated RBC/100 WBC (Bld) [Ratio] 0.0 % [facility] Platelet mean volume (Bld) [Entitic vol] 11.6 fL 9.0 - 12.7 fL [facility] Platelets (Bld) [#/Vol] 77 10*3/uL Low 140 - 440 10*3/uL [facility] RBC (Bld) [#/Vol] 3.83 10*6/uL Low 4.40 - 5.9 0 10*6/uL [facility] WBC (Bld) [#/Vol] 7.9 10*3/uL 3.6 - 10.7 10*3/uL [facility] Comprehensive metabolic 1998 panelon 04-17-2024 Albumin [Mass/Vol] 2.6 g/dL Low 3.5 - 5.0 g/dL [facility] ALP [Catalytic activity/Vol] 128 U/L High 38 - 126 U/L [facility] ALT [Catalytic activity/Vol] 22 U/L 0 - 49 U/L [facility] Anion gap [Moles/Vol] 5 mmol/L 3 - 13 mmol/L [facility] AST [Catalytic activity/Vol] 22 U/L 15 - 46 U/L [facility] Bilirubin [Mass/Vol] 0.7 mg/dL 0.2 - 1 .3 mg/dL [facility] Calcium [Mass/Vol] 7.9 mg/dL Low 8.4 - 10. 4 mg/dL [facility] Chloride [Moles/Vol] 107 mmol/L 98 - 10 7 mmol/L [facility] CO2 [Moles/Vol] 23 mmol/L 22 - 30 mmol/L [facility] Creatinine [Mass/Vol] 0.58 mg/dL Low 0.66 - 1.25 mg/dL [facility] GFR/1.73 sq M.predicted MDRD (S/P/Bld) [Vol rate/Area] - PINF [facility] Glucose [Mass/Vol] 144 mg/dL High 70 - 100 mg/dL [facility] Interpretation and review of laboratory results Abnormal [facility] Potassium [Moles/Vol] 3.2 mmol/L Low 3.5 - 5.1 mmol/L [facility] Protein [Mass/Vol] 5.6 g/dL Low 6.3 - 8.2 g/dL [facility] Sodium [Moles/Vol] 135 mmol/L 135 - 145 mmol/L [facility] Urea nitrogen [Mass/Vol] 23 mg/dL High 9 - 20 mg/dL [facility] Laboratory - Chemistry and C hemistry - challengeon 04-17-2024 Glucose [Mass/Vol] 200 mg/dL High 70 - 100 mg/dL [facility] Glucose [Mass/Vol] 235 mg/dL High 70 - 100 mg/dL [facility] Glucose [Mass/Vol] 200 mg/dL High 70 - 100 mg/dL [facility] Glucose [Mass/Vol] 104 mg/dL High 70 - 100 mg/dL [facility] Magnesium [Mass/Vol] 1.6 mg/dL 1.6 - 2 .3 mg/dL [facility] Laboratory - Microbiology an d Antimicrobial susceptibilityOrdered By: Darya Clark on 04-17-2024 Bacteria identified Cx Nom (U) Normal urogenital gosia present [facility] Bacteria identified Cx Nom (U) 50,000-90,000 CFU/mL Providencia stuartii Abnormal [facility] No Panel Informationon 04-17 Interpretation and review of laboratory results Abnormal [facility] Interpretation and review of laboratory results Abnormal [facility] Interpretation and review of laboratory results Abnormal [facility] Interpretation and review of laboratory results Abnormal [facility] Interpretation and review of laboratory results Normal [facility] Phosphate [Moles/Vol]on 04-04 Phosphate [Mass/Vol] 2.8 mg/dL 2.5 - 4 .5 mg/dL [facility] CBC W Auto Differential pane l (Bld)Ordered By: Jj North on 04-16-2024 Erythrocyte distribution width (RBC) [Ratio] 15.2 % High 11.5 - 15.0 % [facility] Hematocrit (Bld) [Volume fraction] 37.2 % Low 40.0 - 52.0 % [facility] Hemoglobin (Bld) [Mass/Vol] 12.0 g/dL Low 13.0 - 18.0 g/dL [facility] IPF 8 [facility] MCH (RBC) [Entitic mass] 30.7 pg 26. 0 - 34.0 pg [facility] MCHC (RBC) [Mass/Vol] 32.3 % 30.5 - 36.0 % [facility] MCV (RBC) [Entitic vol] 95.1 fL 77.0 - 99.0 fL [facility] Platelet mean volume (Bld) [Entitic vol] 12.0 fL 9.0 - 12.7 fL [facility] Platelets (Bld) [#/Vol] 76 10*3/uL Low 140 - 440 10*3/uL [facility] RBC (Bld) [#/Vol] 3.91 10*6/uL Low 4.40 - 5.9 0 10*6/uL [facility] WBC (Bld) [#/Vol] 11.9 10*3/uL High 3.6 - 10.7 10*3/uL [facility] Comprehensive metabolic 1998 panelon 04-16-2024 Albumin [Mass/Vol] 2.8 g/dL Low 3.5 - 5.0 g/dL [facility] ALP [Catalytic activity/Vol] 130 U/L High 38 - 126 U/L [facility] ALT [Catalytic activity/Vol] 26 U/L 0 - 49 U/L [facility] Anion gap [Moles/Vol] 6 mmol/L 3 - 13 mmol/L [facility] AST [Catalytic activity/Vol] 37 U/L 15 - 46 U/L [facility] Bilirubin [Mass/Vol] 0.9 mg/dL 0.2 - 1 .3 mg/dL [facility] Calcium [Mass/Vol] 8.2 mg/dL Low 8.4 - 10. 4 mg/dL [facility] Chloride [Moles/Vol] 105 mmol/L 98 - 10 7 mmol/L [facility] CO2 [Moles/Vol] 25 mmol/L 22 - 30 mmol/L [facility] Creatinine [Mass/Vol] 0.70 mg/dL 0.66 - 1.25 mg/dL [facility] GFR/1.73 sq M.predicted MDRD (S/P/Bld) [Vol rate/Area] - PINF [facility] Glucose [Mass/Vol] 315 mg/dL High 70 - 100 mg/dL [facility] Interpretation and review of laboratory results Abnormal [facility] Potassium [Moles/Vol] 4.3 mmol/L 3.5 - 5.1 mmol/L [facility] Protein [Mass/Vol] 6.0 g/dL Low 6.3 - 8.2 g/dL [facility] Sodium [Moles/Vol] 137 mmol/L 135 - 145 mmol/L [facility] Urea nitrogen [Mass/Vol] 30 mg/dL High 9 - 20 mg/dL [facility] Laboratory - Chemistry and C hemistry - challengeon 04-16-2024 Glucose [Mass/Vol] 253 mg/dL High 70 - 100 mg/dL [facility] Glucose [Mass/Vol] 307 mg/dL High 70 - 100 mg/dL [facility] Glucose [Mass/Vol] 333 mg/dL High 70 - 100 mg/dL [facility] Glucose [Mass/Vol] 323 mg/dL High 70 - 100 mg/dL [facility] Magnesium [Mass/Vol] 2.0 mg/dL 1.6 - 2 .3 mg/dL [facility] Laboratory - Coagulationon 0 04-16-2024 aPTT Coag (PPP) [Time] 25.4 s 20.0 - 30.5 s [facility] INR Coag (PPP) [Relative time] 1.0 {INR} 0.9 - 1.1 [facility] PT Coag (Bld) [Time] 10.9 s 9.0 - 1 2.0 s [facility] Laboratory - Drug toxicology on 04-16-2024 Vancomycin [Mass/Vol] 12.3 ug/mL Low 15.0 - 20.0 ug/mL [facility] Laboratory - Hematology and Cell countson 04-16-2024 Anisocytosis Ql (Bld) Rare Abnormal (none) [facility] Band form neutrophils (Bld) [#/Vol] 0.2 10*3/uL High NINF - 0.0 10*3/uL [facility] Band form neutrophils/100 WBC (Bld) 2 % High NINF - 0 % [facility] [place] cells LM Ql (Bld) Slight Abnormal (none) [facility] Lymphocytes (Bld) [#/Vol] 0.5 10*3/uL Low 1.0 - 4.3 10*3/uL [facility] Lymphocytes/100 WBC (Bld) 4 % Low 15 - 45 % [facility] Monocytes (Bld) [#/Vol] 0.1 10*3/uL 0.0 - 0.9 10*3/uL [facility] Monocytes/100 WBC (Bld) 1 % Low 5 - 13 % [facility] Neutrophils (Bld) [#/Vol] 11.3 10*3/uL High 1.8 - 7.5 10*3/uL [facility] Ovalocytes LM Ql (Bld) Rare Abnormal (none) [facility] Poikilocytosis LM Ql (Bld) Slight Abnormal (none) [facility] RBC morphology finding Nom (Bld) abnormal [facility] Segmented neutrophils/100 WBC (Bld) 93 % High 38 - 82 % [facility] No Panel Informationon 04-16 Interpretation and review of laboratory results Abnormal [facility] Interpretation and review of laboratory results Abnormal [facility] Interpretation and review of laboratory results Normal [facility] Interpretation and review of laboratory results Abnormal [facility] Interpretation and review of laboratory results Abnormal [facility] Bands Manual 2 [facility] Lymphocytes Manual 4 [facility] Monocytes Manual 1 [facility] alth Neutrophils Manual 96 [facility] Interpretation and review of laboratory results Abnormal [facility] Interpretation and review of laboratory results Normal [facility] No Panel InformationOrdered By: Jj North on 04-16-2024 Interpretation and review of laboratory results Abnormal [facility] Phosphate [Moles/Vol]on 04-04 Phosphate [Mass/Vol] 2.7 mg/dL 2.5 - 4 .5 mg/dL [facility] CBC W Auto Differential pane l (Bld)Ordered By: Dawood Juan on 04-15-2024 Erythrocyte distribution width (RBC) [Ratio] 14.9 % 11.5 - 15.0 % [facility] Hematocrit (Bld) [Volume fraction] 36.2 % Low 40.0 - 52.0 % [facility] Hemoglobin (Bld) [Mass/Vol] 11.9 g/dL Low 13.0 - 18.0 g/dL [facility] Interpretation and review of laboratory results Abnormal [facility] IPF 5 [facility] MCH (RBC) [Entitic mass] 30.9 pg 26. 0 - 34.0 pg [facility] MCHC (RBC) [Mass/Vol] 32.9 % 30.5 - 36.0 % [facility] MCV (RBC) [Entitic vol] 94.0 fL 77.0 - 99.0 fL [facility] Platelet mean volume (Bld) [Entitic vol] 10.8 fL 9.0 - 12.7 fL [facility] Platelets (Bld) [#/Vol] 107 10*3/uL Low 140 - 440 10*3/uL [facility] RBC (Bld) [#/Vol] 3.85 10*6/uL Low 4.40 - 5.9 0 10*6/uL [facility] WBC (Bld) [#/Vol] 11.2 10*3/uL High 3.6 - 10.7 10*3/uL [facility] CBC W Auto Differential pane l (Bld)Ordered By: Benigno Guerrier on 04-15-2024 Erythrocyte distribution width (RBC) [Ratio] 14.8 % 11.5 - 15.0 % [facility] Hematocrit (Bld) [Volume fraction] 39.1 % Low 40.0 - 52.0 % [facility] Hemoglobin (Bld) [Mass/Vol] 12.4 g/dL Low 13.0 - 18.0 g/dL [facility] Interpretation and review of laboratory results Abnormal [facility] [employer] IPF 5 [facility] MCH (RBC) [Entitic mass] 30.8 pg 26. 0 - 34.0 pg [facility] MCHC (RBC) [Mass/Vol] 31.7 % 30.5 - 36.0 % [facility] MCV (RBC) [Entitic vol] 97.0 fL 77.0 - 99.0 fL [facility] Platelet mean volume (Bld) [Entitic vol] 10.9 fL 9.0 - 12.7 fL [facility] Platelets (Bld) [#/Vol] 117 10*3/uL Low 140 - 440 10*3/uL [facility] RBC (Bld) [#/Vol] 4.03 10*6/uL Low 4.40 - 5.9 0 10*6/uL [facility] WBC (Bld) [#/Vol] 5.4 10*3/uL 3.6 - 10.7 10*3/uL [facility] Comprehensive metabolic 1998 panelon 04-15-2024 Albumin [Mass/Vol] 2.6 g/dL Low 3.5 - 5.0 g/dL [facility] ALP [Catalytic activity/Vol] 168 U/L High 38 - 126 U/L [facility] ALT [Catalytic activity/Vol] 34 U/L 0 - 49 U/L [facility] Anion gap [Moles/Vol] 10 mmol/L 3 - 13 mmol/L [facility] AST [Catalytic activity/Vol] 36 U/L 15 - 46 U/L [facility] Bilirubin [Mass/Vol] 1.1 mg/dL 0.2 - 1 .3 mg/dL [facility] Calcium [Mass/Vol] 7.9 mg/dL Low 8.4 - 10. 4 mg/dL [facility] Chloride [Moles/Vol] 105 mmol/L 98 - 10 7 mmol/L [facility] CO2 [Moles/Vol] 19 mmol/L Low 22 - 30 mmol/L [facility] Creatinine [Mass/Vol] 1.01 mg/dL 0.66 - 1.25 mg/dL [facility] GFR/1.73 sq M.predicted MDRD (S/P/Bld) [Vol rate/Area] 84.1 mL/min/{1.73_m2} - PINF [facility] Glucose [Mass/Vol] 286 mg/dL High 70 - 100 mg/dL [facility] Interpretation and review of laboratory results Abnormal [facility] Potassium [Moles/Vol] 3.6 mmol/L 3.5 - 5.1 mmol/L [facility] Protein [Mass/Vol] 5.5 g/dL Low 6.3 - 8.2 g/dL [facility] Sodium [Moles/Vol] 135 mmol/L 135 - 145 mmol/L [facility] Urea nitrogen [Mass/Vol] 25 mg/dL High 9 - 20 mg/dL [facility] Laboratory - Chemistry and C hemistry - challengeon 04-15-2024 Glucose [Mass/Vol] 390 mg/dL High 70 - 100 mg/dL [facility] Glucose [Mass/Vol] 342 mg/dL High 70 - 100 mg/dL [facility] Average glucose Estimated from glycated hemoglobin (Bld) [Mass/Vol] 134 mg/dL [facility] Glucose [Mass/Vol] 287 mg/dL High 70 - 100 mg/dL [facility] Lactate [Moles/Vol] 2.0 mmol/L 0.7 - 2. 0 mmol/L [facility] Procalcitonin [Mass/Vol] 27.06 ng/mL High 0.0 0 - 0.09 ng/mL [facility] Glucose [Mass/Vol] 285 mg/dL High 70 - 100 mg/dL [facility] Lactate [Moles/Vol] 3.6 mmol/L High 0.7 - 2. 0 mmol/L [facility] Magnesium [Mass/Vol] 1.7 mg/dL 1.6 - 2 .3 mg/dL [facility] Laboratory - Drug toxicology on 04-15-2024 Vancomycin [Mass/Vol] 10.8 ug/mL Low 15.0 - 20.0 ug/mL [facility] Laboratory - Hematology and Cell countson 04-15-2024 HbA1c (Bld) [Mass fraction] 6.3 % High NINF - 5.7 % [facility] Band form neutrophils (Bld) [#/Vol] 2.6 10*3/uL High NINF - 0.0 10*3/uL [facility] Band form neutrophils/100 WBC (Bld) 23 % High NINF - 0 % [facility] [place] cells LM Ql (Bld) Slight Abnormal (none) [facility] Lymphocytes (Bld) [#/Vol] 0.1 10*3/uL Low 1.0 - 4.3 10*3/uL [facility] Lymphocytes/100 WBC (Bld) 1 % Low 15 - 45 % [facility] Metamyelocytes (Bld) [#/Vol] 0.1 10*3/uL High NINF - 0.0 10*3/uL [facility] Metamyelocytes/100 WBC (Bld) 1 % High NINF - 0 % [facility] Monocytes (Bld) [#/Vol] 0.1 10*3/uL 0.0 - 0.9 10*3/uL [facility] Monocytes/100 WBC (Bld) 1 % Low 5 - 13 % [facility] Neutrophils (Bld) [#/Vol] 11.0 10*3/uL High 1.8 - 7.5 10*3/uL [facility] Poikilocytosis LM Ql (Bld) Rare Abnormal (none) [facility] RBC morphology finding Nom (Bld) abnormal [facility] Segmented neutrophils/100 WBC (Bld) 75 % 38 - 82 % [facility] Band form neutrophils (Bld) [#/Vol] 1.2 10*3/uL High NINF - 0.0 10*3/uL [facility] Band form neutrophils/100 WBC (Bld) 23 % High NINF - 0 % [facility] Basophils (Bld) [#/Vol] 0.1 10*3/uL 0.0 - 0.2 10*3/uL [facility] Basophils/100 WBC (Bld) 1 % 0 - 2 % [facility] [place] cells LM Ql (Bld) Slight Abnormal (none) [facility] Lymphocytes (Bld) [#/Vol] 0.1 10*3/uL Low 1.0 - 4.3 10*3/uL [facility] Lymphocytes/100 WBC (Bld) 1 % Low 15 - 45 % [facility] Metamyelocytes (Bld) [#/Vol] 0.1 10*3/uL High NINF - 0.0 10*3/uL [facility] Metamyelocytes/100 WBC (Bld) 1 % High NINF - 0 % [facility] Monocytes (Bld) [#/Vol] 0.0 10*3/uL 0.0 - 0.9 10*3/uL [facility] Monocytes/100 WBC (Bld) 0 % Low 5 - 13 % [facility] Neutrophils (Bld) [#/Vol] 5.2 10*3/uL 1.8 - 7.5 10*3/uL [facility] Poikilocytosis LM Ql (Bld) Rare Abnormal (none) [facility] RBC morphology finding Nom (Bld) abnormal [facility] Segmented neutrophils/100 WBC (Bld) 74 % 38 - 82 % [facility] MRSA DNA JOSSY+probe Ql (Nose) on 04-15-2024 Interpretation and review of laboratory results Abnormal [facility] mecA gene Not detected Not Detected [facility] Staphylococcus aureus Detected Abnormal Not Detected [facility] No Panel Informationon 04-15 Interpretation and review of laboratory results Abnormal [facility] Interpretation and review of laboratory results Abnormal [facility] Interpretation and review of laboratory results Abnormal [facility] Interpretation and review of laboratory results Abnormal [facility] Interpretation and review of laboratory results Normal [facility] Interpretation and review of laboratory results Abnormal [facility] Bands Manual 23 [facility] Interpretation and review of laboratory results Abnormal [facility] Lymphocytes Manual 1 [facility] Metamyelocytes Manual 1 [facility] Monocytes Manual 1 [facility] Neutrophils Manual 76 [facility] Interpretation and review of laboratory results Abnormal [facility] Interpretation and review of laboratory results Normal [facility] CV EPIPHANY [facility] Interpretation and review of laboratory results Abnormal [facility] Bands Manual 23 [facility] Basophils Manual 1 [facility] Interpretation and review of laboratory results Abnormal [facility] Lymphocytes Manual 1 [facility] Metamyelocytes Manual 1 [facility] Monocytes Manual 0 [facility] Neutrophils Manual 74 [facility] No Panel InformationOrdered By: Radha Clarke on 04-15-2024 Interpretation and review of laboratory results Abnormal [facility] Proteus species Detected Abnormal Not Detected [facility] [employer] No Panel InformationOrdered By: Gerber Cardona on 04-15-2024 P [place] 4 degrees [facility] [employer] Work Phone: DC Interval 154 ms Link [employer] Work Phone: QRS [place] 36 degrees [facility] [employer] Work Phone: QRSD Interval 90 ms [facility] [employer] Work Phone: QT Interval 336 ms [facility] [employer] Work Phone: QTC Interval 473 ms [facility] [employer] Work Phone: T Wave [place] 37 degrees [facility] [employer] Work Phone: [facility] [employer] Work Phone: Phosphate [Moles/Vol]on 04-04 Phosphate [Mass/Vol] 3.3 mg/dL 2.5 - 4 .5 mg/dL [facility] [employer] Procalcitonin [Mass/Vol]on 0 04-15-2024 Interpretation and review of laboratory results Abnormal [facility] Vital signsOrdered By: Gerber Cardona on 04-15-2024 Heart rate 119 /min bpm [facility] [employer] Work Phone: ABO and Rh group Confirm Nom (Bld)on 04-14-2024 ABO group Nom (Bld) O [facility] [employer] D Ag Ql (RBC) Negative [facility] [employer] ABO and Rh group panel (Bld) on 04-14-2024 ABO group Nom (Bld) O [facility] D Ag Ql (RBC) Negative [facility] CBC W Auto Differential pane l (Bld)Ordered By: Bev Santizo on 04-14-2024 Erythrocyte distribution width (RBC) [Ratio] 14.8 % 11.5 - 15.0 % [facility] Hematocrit (Bld) [Volume fraction] 47.3 % 40.0 - 52.0 % [facility] Hemoglobin (Bld) [Mass/Vol] 15.2 g/dL 13.0 - 18.0 g/dL [facility] Interpretation and review of laboratory results Abnormal [facility] MCH (RBC) [Entitic mass] 30.7 pg 26. 0 - 34.0 pg [facility] MCHC (RBC) [Mass/Vol] 32.1 % 30.5 - 36.0 % [facility] MCV (RBC) [Entitic vol] 95.6 fL 77.0 - 99.0 fL [facility] Platelet mean volume (Bld) [Entitic vol] 10.8 fL 9.0 - 12.7 fL [facility] Platelets (Bld) [#/Vol] 183 10*3/uL 140 - 440 10*3/uL [facility] RBC (Bld) [#/Vol] 4.95 10*6/uL 4.40 - 5.9 0 10*6/uL [facility] WBC (Bld) [#/Vol] 1.5 10*3/uL Critically low 3.6 - 10 .7 10*3/uL [facility] CT Abdomen WO contraston [facility] Radiology Study observation (narrative) [facility] alth CT Abdomen WO contrastOrdere d By: Joe Monroy on 04-14-2024 [facility] Work Phone: Comprehensive metabolic 1998 panelon 04-14-2024 Albumin [Mass/Vol] 4.0 g/dL 3.5 - 5.0 g/dL [facility] ALP [Catalytic activity/Vol] 167 U/L High 38 - 126 U/L [facility] ALT [Catalytic activity/Vol] 22 U/L 0 - 49 U/L [facility] Anion gap [Moles/Vol] 16 mmol/L High 3 - 13 mmol/L [facility] AST [Catalytic activity/Vol] 25 U/L 15 - 46 U/L [facility] Bilirubin [Mass/Vol] 1.4 mg/dL High 0.2 - 1 .3 mg/dL [facility] Calcium [Mass/Vol] 9.0 mg/dL 8.4 - 10. 4 mg/dL [facility] Chloride [Moles/Vol] 102 mmol/L 98 - 10 7 mmol/L [facility] CO2 [Moles/Vol] 19 mmol/L Low 22 - 30 mmol/L [facility] Creatinine [Mass/Vol] 1.24 mg/dL 0.66 - 1.25 mg/dL [facility] GFR/1.73 sq M.predicted MDRD (S/P/Bld) [Vol rate/Area] 65.7 mL/min/{1.73_m2} - PINF [facility] th Glucose [Mass/Vol] 259 mg/dL High 70 - 100 mg/dL [facility] Potassium [Moles/Vol] 3.9 mmol/L 3.5 - 5.1 mmol/L [facility] Protein [Mass/Vol] 7.8 g/dL 6.3 - 8.2 g/dL [facility] Sodium [Moles/Vol] 137 mmol/L 135 - 145 mmol/L [facility] Urea nitrogen [Mass/Vol] 21 mg/dL High 9 - 20 mg/dL [facility] Laboratory - Chemistry and C hemistry - challengeOrdered By: Meliton Burrows on 04-14-2024 Lactate [Moles/Vol] 4.9 mmol/L Critically high 0.7 - 2.0 mmol/L [facility] Laboratory - Chemistry and C hemistry - challengeon 04-14-2024 Glucose [Mass/Vol] 223 mg/dL High 70 - 100 mg/dL [facility] Glucose [Mass/Vol] 210 mg/dL High 70 - 100 mg/dL [facility] Glucose [Mass/Vol] 226 mg/dL High 70 - 100 mg/dL [facility] Lipase [Catalytic activity/Vol] U/L Low 23 - 300 U/L [facility] Lactate [Moles/Vol] 3.9 mmol/L High 0.7 - 2. 0 mmol/L [facility] Troponin I.cardiac [Mass/Vol] ng/mL NINF - 0.034 ng/mL [facility] Beta hydroxybutyrate [Mass/Vol] 1.08 mg/dL 0.20 - 2.81 mg/dL [facility] Base excess Calc (BldV) [Moles/Vol] -8.0000 mmol/L Low -3.0 - 3.0 mmol/L [facility] CO2 (BldV) [Partial pressure] 47.4 mm[Hg] [facility] CO2 [Moles/Vol] 20.9 mmol/L Low 23.0 - 30.0 mmol/L [facility] HCO3 (Bld) [Moles/Vol] 19.5 mmol/L Low 21.0 - 30.0 mmol/L [facility] Oxygen (BldV) [Partial pressure] 40.8 mm[Hg] mm Hg [facility] pH (BldV) 7.232 [pH] Low 7.320 - 7.420 [facility] Lipase [Catalytic activity/Vol] 12 U/L Low 23 - 300 U/L [facility] Laboratory - Chemistry and C hemistry - challengeOrdered By: Elliot Martines on 04-14-2024 Lactate [Moles/Vol] 5.1 mmol/L Critically high 0.7 - 2.0 mmol/L [facility] Laboratory - Coagulationon 0 04-14-2024 PT Coag (Bld) [Time] 27.1 s High 9.0 - 1 2.0 s [facility] Laboratory - Hematology and Cell countson 04-14-2024 Hemoglobin (Bld) [Mass/Vol] 13.7 g/dL Screen only [facility] Band form neutrophils (Bld) [#/Vol] 0.3 10*3/uL High NINF - 0.0 10*3/uL [facility] Band form neutrophils/100 WBC (Bld) 17 % High NINF - 0 % [facility] Basophils (Bld) [#/Vol] 0.0 10*3/uL 0.0 - 0.2 10*3/uL [facility] Basophils/100 WBC (Bld) 1 % 0 - 2 % [facility] Lymphocytes (Bld) [#/Vol] 0.6 10*3/uL Low 1.0 - 4.3 10*3/uL [facility] Lymphocytes/100 WBC (Bld) 38 % 15 - 45 % [facility] Monocytes (Bld) [#/Vol] 0.0 10*3/uL 0.0 - 0.9 10*3/uL [facility] Monocytes/100 WBC (Bld) 1 % Low 5 - 13 % [facility] Neutrophils (Bld) [#/Vol] 0.9 10*3/uL Low 1.8 - 7.5 10*3/uL [facility] RBC morphology finding Nom (Bld) Normal [facility] Segmented neutrophils/100 WBC (Bld) 42 % 38 - 82 % [facility] Lipase [Catalytic activity/V ol]on 04-14-2024 Interpretation and review of laboratory results Abnormal [facility] No Panel InformationOrdered By: Meliton Burrows on 04-14-2024 Interpretation and review of laboratory results Abnormal [facility] No Panel Informationon 04-14 Interpretation and review of laboratory results Abnormal [facility] Interpretation and review of laboratory results Abnormal [facility] Interpretation and review of laboratory results Abnormal [facility] Interpretation and review of laboratory results Abnormal [facility] Interpretation and review of laboratory results Abnormal [facility] Interpretation and review of laboratory results Normal [facility] Interpretation and review of laboratory results Abnormal [facility] Source Of Oxygen Room Air [facility] He alth [facility] Bands Manual 17 [facility] Basophils Manual 1 [facility] He [facility]th Interpretation and review of laboratory results Abnormal [facility] Lymphocytes Manual 38 [facility] Monocytes Manual 1 [facility] alth Neutrophils Manual 42 [facility] Interpretation and review of laboratory results Abnormal [facility] No Panel InformationOrdered By: Elliot Martines on 04-14-2024 Interpretation and review of laboratory results Abnormal [facility] PT Coag (Bld) [Time]on 04-14 INR Coag (PPP) [Relative time] 2.7 {INR} High 0.9 - 1.1 [facility] RF Kidney and Ureter and Uri nary bladder Views W contrast retrogradeon 04-14-2024 IMAGING Troponin I.cardiac [Mass/Vol ]on 04-14-2024 Interpretation and review of laboratory results Normal [facility] Vital signson 04-14-2024 Oxygen saturation in Venous blood 70.7 % [facility] XR Chest Single viewon 04-14 [facility]ative[facility] Single viewOrdered By: Geneva Lunsford on 04-14-2024 [facility] Work Phone: aPTT Coag (Bld) [Time]on aPTT Coag (PPP) [Time] 68.0 s High 20.0 - 30.5 s [facility] Telephone Encounteron 2023 [facility] Authentication Interface Message Text Called pt on his room number but unable to reach him or leave a message. I called nursing staff at the [place] where he lives and was able to leave a message with nursing regarding his MRI findings and that I would like to speak with him and recommendations to schedule visit with SCI rehab and spine surgery. Vaishali Pierre, DO Normal [facility] Telephone Encounteron 2023 [facility]ia[facility] Authentication Interface Message Text Telephoned [place] pt at dinner and medical office receptionist assistant states she cannot pull pt away from dinner. Normal [facility] Authentication Interface Message Text Called pt regarding [...] to the above findings.He does not have [employer] set up to message. Vaishali Pierre, DO Normal [facility] MR L-SPINE W/+W/Oon 04-05-20 24 MR [...] or epidural abscess. MACRO: None Normal [facility] MR Lumbar spine WO and W [...] History of lumbar fusion ORDERING PROVIDER: VAISHALI [facility] TECHNOLOGISTS NOTE: COMPARISON: Lumbar radiographs from 02/10/2024 [...] History of lumbar fusion ORDERING PROVIDER: VAISHALI [facility] TECHNOLOGISTS NOTE: COMPARISON: Lumbar radiographs from 02/10/2024 [...] osteomyelitis discitis or epidural abscess. MACRO: None [facility] Radiology Study observation (narrative) [facility] MR Lumbar spine WO and W con trast IVOrdered By: Hector Li on 04-05-2024 [facility] Work Phone: Patient Instructionson 02-09 [facility] Authentication Interface Message Text - xrays of the low back - can schedule the MRI of the lumbar spine - I recommend seeing one of my colleagues in the spinal cord injury clinic Normal [facility] Progress Noteson 02-10-2024 [facility] Authentication Interface Message Text Physical Medicine and [...] currently in a nursing facility, [facility]. Bladder management is via Santana catheter. 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 Normal [facility] Authentication Interface Message Text Vitals not obtained per provider's instructions. Normal [facility] XR L-SPINE AP+LATERAL 2-3 EWSon 02-10-2024 XR L-SPINE AP+LATERAL 2-3 VIEWS EXAMINATION: XR L-SPINE AP+LATERAL 2-3 VIEWS 02/10/2024 02:27 PM CLINICAL HISTORY: lower thoracic, upper lumbar pareplegia, h/o lumbar surgery. Obtaining updated MRI. Need pre xray ASSOCIATED DIAGNOSIS: Paraplegia (HCC) History of lumbar fusion ORDERING PROVIDER: VAISHALI [employer] TECHNOLOGISTS NOTE: COMPARISON: None FINDINGS: There is [...] segments is considered. MACRO: None Normal [facility] XR Lumbar spine AP and Later brooklynn 02-10-2024 EXAMINATION: XR L-SPINE AP+LATERAL 2-3 VIEWS 02/10/2024 02:27 PM CLINICAL HISTORY: lower thoracic, upper lumbar pareplegia, h/o lumbar surgery. Obtaining updated MRI. Need pre xray ASSOCIATED DIAGNOSIS: Paraplegia (HCC) History of lumbar fusion ORDERING PROVIDER: [facility] TECHNOLOGISTS NOTE: COMPARISON: None FINDINGS: There is [...] History of lumbar fusion ORDERING PROVIDER: VAISHALI [employer] TECHNOLOGISTS NOTE: COMPARISON: None FINDINGS: There is [...] on L3 segments is considered. MACRO: None [facility] Radiology Study observation (narrative) [facility] XR Lumbar spine AP and Later alOrdered By: Juan William on 02-10-2024 [facility] Work Phone: Basophil percentageOrdered B y: Tab Dupont on 01-15-2024 Chloride [Moles/Vol] 109 mmol/L 98-107 [facility] Glucose [Mass/Vol] 122 mg/dL 74-106 [facility] Comment on above: Fasting Glucose resu lt from 100 to 125 mg/dL suggests IMPAIRED HOMEOSTASIS per A.D.A. criteria. Hemoglobin (Bld) [Mass/Vol] 13.0 g/dL 13.0-16.5 [facility] Potassium [Moles/Vol] 3.8 mmol/L 3.5-5.1 [facility] Sodium [Moles/Vol] 139 mmol/L 136-145 [facility] WBC (Bld) [#/Vol] 6.6 10*3/uL 4.4-11.0 [facility] Determination of erythrocyte mean corpuscular volume (MCV)Ordered By: Tab Dupont on 01-15-2024 MCV (RBC) [Entitic vol] 94.3 fL 80-94 [facility] Erythrocyte distribution wid th ratioOrdered By: Tab Dupont on 01-15-2024 Erythrocyte distribution width (RBC) [Ratio] 13.8 % 11.6-14.6 [facility] Erythrocyte distribution wid th standard deviationOrdered By: Tab Dupont on 01-15-2024 Erythrocyte distribution width (RBC) [Entitic vol] 48.0 fL 35.1-43.9 [facility] Hematocrit Auto (Bld) [Volum e fraction]Ordered By: Tab Dupont on 01-15-2024 Hematocrit (Bld) [Volume fraction] 39.5 % 40-54 [facility] Laboratory - Chemistry and C hemistry - challengeOrdered By: Tab Dupont on 01-15-2024 CO2 [Moles/Vol] 26.0 mmol/L 21.0-32.0 [facility] Urea nitrogen/Creatinine [Mass ratio] 21.6 mg/mg 10-20 [facility] Laboratory - Hematology and Cell countsOrdered By: Tab Dupont on 01-15-2024 MCH (RBC) [Entitic mass] 31.0 pg 27.0-32.0 [facility] MCHC (RBC) [Mass/Vol] 32.9 g/dL 32-36 [facility] Platelet mean volume (Bld) [Entitic vol] 10.4 fL 6.2-12.0 [facility] Platelets (Bld) [#/Vol] 257 10*3/uL 150-450 [facility] No Panel InformationOrdered By: Tab Dupont on 01-15-2024 Estimated GFR (MDRD) Amer 236 mL/min >60 [facility] Comment on above: GFR Calc Estimated GFR (MDRD) Non-Af Amer 195 mL/min >60 [facility] Comment on above: Non- GFR Calc RBC Auto (Bld) [#/Vol]Ordere d By: Tab Dupont on 01-15-2024 RBC (Bld) [#/Vol] 4.19 10*6/uL 4.6-6.2 [facility] Serum or plasma calcium randall urement (mass/volume)Ordered By: Tab Dupont on 01-15-2024 Calcium [Mass/Vol] 8.7 mg/dL 8.5-10.1 [facility] Serum or plasma creatinine m easurement (mass/volume)Ordered By: Tab Dupont on 01-15-2024 Creatinine [Mass/Vol] 0.46 mg/dL 0.70-1.30 [facility] Comment on above: The validity of the calculated GFR & GFRAA in patients over 70 years has not been determined. Clinical correlation is essential. Serum or plasma urea nitroge n measurement (mass/volume)Ordered By: Tab Dupont on 01-15-2024 Urea nitrogen [Mass/Vol] 10 mg/dL 7-18 [facility] Thin prep Papanicolaou smear with manual screeningOrdered By: Tab Dupont on 01-15-2024 Thin prep Papanicolaou smear with manual screening 4 5-15 [facility] Basophil percentageOrdered B y: Tab Dupont on 01-07-2024 Chloride [Moles/Vol] 112 mmol/L 98-107 [facility] Glucose [Mass/Vol] 114 mg/dL 74-106 [facility] Comment on above: Fasting Glucose resu lt from 100 to 125 mg/dL suggests IMPAIRED HOMEOSTASIS per A.D.A. criteria. Hemoglobin (Bld) [Mass/Vol] 13.0 g/dL 13.0-16.5 [facility] Potassium [Moles/Vol] 3.8 mmol/L 3.5-5.1 [facility] Sodium [Moles/Vol] 140 mmol/L 136-145 [facility] WBC (Bld) [#/Vol] 8.1 10*3/uL 4.4-11.0 [facility] Determination of erythrocyte mean corpuscular volume (MCV)Ordered By: Tab Dupont on 01-07-2024 MCV (RBC) [Entitic vol] 92.6 fL 80-94 [facility] Erythrocyte distribution wid th ratioOrdered By: Tab Dupont on 01-07-2024 Erythrocyte distribution width (RBC) [Ratio] 13.8 % 11.6-14.6 [facility] Erythrocyte distribution wid th standard deviationOrdered By: Tab Dupont on 01-07-2024 Erythrocyte distribution width (RBC) [Entitic vol] 46.5 fL 35.1-43.9 [facility] Hematocrit Auto (Bld) [Volum e fraction]Ordered By: Tab Dupont on 01-07-2024 Hematocrit (Bld) [Volume fraction] 38.9 % 40-54 [facility] Laboratory - Chemistry and C hemistry - challengeOrdered By: Tab Dupont on 01-07-2024 CO2 [Moles/Vol] 23.0 mmol/L 21.0-32.0 [facility] Urea nitrogen/Creatinine [Mass ratio] 25.5 mg/mg 10-20 [facility] Laboratory - Hematology and Cell countsOrdered By: Tab Dupont on 01-07-2024 MCH (RBC) [Entitic mass] 31.0 pg 27.0-32.0 [facility] MCHC (RBC) [Mass/Vol] 33.4 g/dL 32-36 [facility] Platelet mean volume (Bld) [Entitic vol] 10.2 fL 6.2-12.0 [facility] Platelets (Bld) [#/Vol] 282 10*3/uL 150-450 [facility] No Panel InformationOrdered By: Tab Dupont on 01-07-2024 Estimated GFR (MDRD) Amer 257 mL/min >60 [facility] Comment on above: GFR Calc Estimated GFR (MDRD) Non-Af Amer 212 mL/min >60 [facility] Comment on above: Non- GFR Calc RBC Auto (Bld) [#/Vol]Ordere d By: Tab Dupont on 01-07-2024 RBC (Bld) [#/Vol] 4.20 10*6/uL 4.6-6.2 [facility] Serum or plasma calcium randall urement (mass/volume)Ordered By: Tab Dupont on 04-04-2024 Calcium [Mass/Vol] 8.5 mg/dL 8.5-10.1 [facility] Serum or plasma creatinine m easurement (mass/volume)Ordered By: Tab Dupont on 01-07-2024 Creatinine [Mass/Vol] 0.43 mg/dL 0.70-1.30 [facility] Comment on above: The validity of the calculated GFR & GFRAA in patients over 70 years has not been determined. Clinical correlation is essential. Serum or plasma urea nitroge n measurement (mass/volume)Ordered By: Tab Dupont on 01-07-2024 Urea nitrogen [Mass/Vol] 11 mg/dL 7-18 [facility] Thin prep Papanicolaou smear with manual screeningOrdered By: Tab Dupont on 01-07-2024 Thin prep Papanicolaou smear with manual screening 5 5-15 [facility] Whole blood hemoglobin A1c/t otal hemoglobin ratio (mass fraction)Ordered By: Tab Dupont on 01-04-2024 HbA1c (Bld) [Mass fraction] 6.3 % 3.8-5.6 [facility] Comment on above: Normal < 5.7 % Predi abetic 5.7 - 6.4 % Diabetic >or= 6.5 % Please note range changes. Basophil percentageOrdered B y: Tab Dupont on 12-31-2023 Chloride [Moles/Vol] 107 mmol/L 98-107 [facility] Glucose [Mass/Vol] 145 mg/dL 74-106 [facility] Comment on above: Fasting Glucose resu lt greater than or equal to 126 mg/dL suggests DIABETES MELLITUS per A.D.A. criteria. Hemoglobin (Bld) [Mass/Vol] 12.5 g/dL 13.0-16.5 [facility] Potassium [Moles/Vol] 3.4 mmol/L 3.5-5.1 [facility] Sodium [Moles/Vol] 136 mmol/L 136-145 [facility] WBC (Bld) [#/Vol] 7.7 10*3/uL 4.4-11.0 [facility] Determination of erythrocyte mean corpuscular volume (MCV)Ordered By: Tab Dupont on 12-31-2023 MCV (RBC) [Entitic vol] 93.0 fL 80-94 [facility] Erythrocyte distribution wid th ratioOrdered By: Tab Dupont on 12-31-2023 Erythrocyte distribution width (RBC) [Ratio] 14.1 % 11.6-14.6 [facility] Erythrocyte distribution wid th standard deviationOrdered By: Tab Dupont on 12-31-2023 Erythrocyte distribution width (RBC) [Entitic vol] 48.5 fL 35.1-43.9 [facility] Hematocrit Auto (Bld) [Volum e fraction]Ordered By: Tab Dupont on 12-31-2023 Hematocrit (Bld) [Volume fraction] 37.0 % 40-54 [facility] Laboratory - Chemistry and C hemistry - challengeOrdered By: Tab Dupont on 12-31-2023 CO2 [Moles/Vol] 23.0 mmol/L 21.0-32.0 [facility] Urea nitrogen/Creatinine [Mass ratio] 29.1 mg/mg 10-20 [facility] Laboratory - Hematology and Cell countsOrdered By: Tab Dupont on 12-31-2023 MCH (RBC) [Entitic mass] 31.4 pg 27.0-32.0 [facility] MCHC (RBC) [Mass/Vol] 33.8 g/dL 32-36 [facility] Platelet mean volume (Bld) [Entitic vol] 11.0 fL 6.2-12.0 [facility] Platelets (Bld) [#/Vol] 199 10*3/uL 150-450 [facility] No Panel InformationOrdered By: Tab Dupont on 12-31-2023 Estimated GFR (MDRD) Amer 299 mL/min >60 [facility] Comment on above: GFR Calc Estimated GFR (MDRD) Non-Af Amer 247 mL/min >60 [facility] Comment on above: Non- GFR Calc RBC Auto (Bld) [#/Vol]Ordere d By: Tab Dupont on 12-31-2023 RBC (Bld) [#/Vol] 3.98 10*6/uL 4.6-6.2 [facility] Serum or plasma calcium randall urement (mass/volume)Ordered By: Tab Dupont on 12-31-2023 Calcium [Mass/Vol] 8.6 mg/dL 8.5-10.1 [facility] Serum or plasma creatinine m easurement (mass/volume)Ordered By: Tab Dupont on 12-31-2023 Creatinine [Mass/Vol] 0.38 mg/dL 0.70-1.30 [facility] Comment on above: The validity of the calculated GFR & GFRAA in patients over 70 years has not been determined. Clinical correlation is essential. Serum or plasma urea nitroge n measurement (mass/volume)Ordered By: Tab Dupont on 12-31-2023 Urea nitrogen [Mass/Vol] 11 mg/dL 7-18 [facility] Thin prep Papanicolaou smear with manual screeningOrdered By: Tab Dupont on 12-31-2023 Thin prep Papanicolaou smear with manual screening 6 5-15 [facility] Basophil percentageOrdered B y: Tab Dupont on 12-04-2023 Basophil percentage 25-50 SEEN /hpf 0-5 [facility] Bilirubin Test strip Ql (U)O rdered By: Tab Dupont on 12-04-2023 Bilirubin Ql (U) Negative Negative [facility] Calcium oxalate crystals det ection in urine sediment by light microscopyOrdered By: Tab Dupont on 12-04-2023 Calcium oxalate crystals LM Ql (Urine sed) 2+ /hpf [facility] Culture, urineOrdered By: Vinh Lehman on 12-04-2023 Bacteria identified Cx Nom (U) ESBL Klebsiella pneumoniae pne [facility] Bacteria identified Cx Nom (U) Proteus mirabilis [facility] Ketones Test strip Ql (U)Ord ered By: Tab Dupont on 12-04-2023 Ketones Ql (U) 5 mg/dl Negative [facility] Magnesium ammonium phosphate crystal detectionOrdered By: Tab Dupont on 12-04-2023 Triple phosphate crystals LM Ql (Urine sed) 2+ /hpf [facility] Mucus LM Ql (Urine sed)Order ed By: Tab Dupont on 12-04-2023 Mucus Ql (Urine sed) 0 SEEN /hpf [facility] Nitrite Test strip Ql (U)Ord ered By: Tab Dupont on 12-04-2023 Nitrite Ql (U) Negative Negative [facility] No Panel InformationOrdered By: Tab Dupont on 12-04-2023 Urine RBC 10-25 SEEN /hpf 0-5 [facility] Protein Test strip Ql (U)Ord ered By: Tab Dupont on 12-04-2023 Protein Ql (U) 30 mg/dl Negative [facility] Squamous epithelial cells de tection in urine sediment by light microscopyOrdered By: Tab Dupont on 12-04-2023 Epithelial cells.squamous LM Ql (Urine sed) 0 SEEN /hpf 0-5 [facility] Urine blood detectionOrdered By: Tab Dupont on 12-04-2023 RBC Ql (U) 150 /ul Negative [facility] Urine clarityOrdered By: Regino Dupont on 12-04-2023 Clarity (U) Cloudy Clear [facility] Urine color determinationOrd ered By: Tab Dupont on 12-04-2023 Color (U) Yellow Yellow [facility] Urine glucose detectionOrder ed By: Tab Dupont on 12-04-2023 Glucose Ql (U) Normal mg/dl Normal [facility] Urine leukocyte esterase det ection by dipstickOrdered By: Tab Dupont on 12-04-2023 Leukocyte esterase Test strip Ql (U) 500 /ul Negative [facility] Urine pHOrdered By: Tab cordova on 12-04-2023 pH (U) 8.0 [pH] 5.0 - 8.0 [facility] Urine sediment bacteria coun t by microscopy (number/high power field)Ordered By: Tab Dupont on 12-04-2023 Bacteria LM.HPF (Urine sed) [#/Area] 3 /[HPF] None Seen [facility] Urine specific gravity measu rementOrdered By: Tab Dupont on 12-04-2023 Specific gravity (U) [Rel density] 1.015 1.002-1.030 [facility] Urine urobilinogen measureme ntOrdered By: Tba Dupont on 12-04-2023 Urobilinogen Ql (U) Normal mg/dl Normal [facility] Amorphous sediment detection in urine sediment by light microscopyOrdered By: Tab Dupont on 10-25-2023 Amorphous sediment LM Ql (Urine sed) 3+ [facility] Basophil percentageOrdered B y: Tab Dupont on 10-25-2023 Basophil percentage 0-5 SEEN /hpf 0-5 [facility] Bilirubin Test strip Ql (U)O rdered By: Tab Dupont on 10-25-2023 Bilirubin Ql (U) Negative Negative [facility] Culture, urineOrdered By: Vinh Lehman on 10-25-2023 Bacteria identified Cx Nom (U) ESBL Klebsiella pneumoniae pne [facility] Bacteria identified Cx Nom (U) Proteus mirabilis [facility] Ketones Test strip Ql (U)Ord ered By: Tab Dupont on 10-25-2023 Ketones Ql (U) Negative Negative [facility] Mucus LM Ql (Urine sed)Order ed By: Tab Dupont on 10-25-2023 Mucus Ql (Urine sed) 0 SEEN /hpf [facility] Nitrite Test strip Ql (U)Ord ered By: Tab Dupont on 10-25-2023 Nitrite Ql (U) Negative Negative [facility] No Panel InformationOrdered By: Tab Dupont on 10-25-2023 Urine RBC 0-5 SEEN /hpf 0-5 [facility] Protein Test strip Ql (U)Ord ered By: Tab Dupont on 10-25-2023 Protein Ql (U) 500 mg/dl Negative [facility] Squamous epithelial cells de tection in urine sediment by light microscopyOrdered By: Tab Dupont on 10-25-2023 Epithelial cells.squamous LM Ql (Urine sed) 0 SEEN /hpf 0-5 [facility] Urine blood detectionOrdered By: Tab Dupont on 10-25-2023 RBC Ql (U) 150 /ul Negative [facility] Urine clarityOrdered By: Regino Dupont on 10-25-2023 Clarity (U) Cloudy Clear [facility] Urine color determinationOrd ered By: Tab Dupont on 10-25-2023 Color (U) YELLOW Yellow [facility] Urine glucose detectionOrder ed By: Tab Dupont on 10-25-2023 Glucose Ql (U) Normal mg/dl Normal [facility] Urine leukocyte esterase det ection by dipstickOrdered By: Tab Dupont on 10-25-2023 Leukocyte esterase Test strip Ql (U) 500 /ul Negative [facility] Urine pHOrdered By: Tab cordova on 10-25-2023 pH (U) 8.0 [pH] 5.0 - 8.0 [facility] Urine sediment bacteria coun t by microscopy (number/high power field)Ordered By: Tab Dupont on 10-25-2023 Bacteria LM.HPF (Urine sed) [#/Area] 1 /[HPF] None Seen [facility] Urine sediment uric acid cry stal count by microscopy (number/high power field)Ordered By: Tab Dupont on 10-25-2023 Urate crystals LM.HPF (Urine sed) [#/Area] 3 /[HPF] [facility] Urine specific gravity measu rementOrdered By: Tab Dupont on 10-25-2023 Specific gravity (U) [Rel density] 1.010 1.002-1.030 [facility] Urine urobilinogen measureme ntOrdered By: Tab Dupont on 10-25-2023 Urobilinogen Ql (U) Normal mg/dl Normal [facility] Whole blood hemoglobin A1c/t otal hemoglobin ratio (mass fraction)Ordered By: Tab Dupont on 08-10-2023 HbA1c (Bld) [Mass fraction] 6.2 % 3.8-5.6 [facility] Comment on above: Normal < 5.7 % Predi abetic 5.7 - 6.4 % Diabetic >or= 6.5 % Please note range changes. Whole blood hemoglobin A1c/t otal hemoglobin ratio (mass fraction)Ordered By: Tab Dupont on 08-07-2023 HbA1c (Bld) [Mass fraction] 6.2 % 3.8-5.6 [facility] Comment on above: Normal < 5.7 % Predi abetic 5.7 - 6.4 % Diabetic >or= 6.5 % Please note range changes. Amorphous sediment detection in urine sediment by light microscopyOrdered By: Tab Dupont on 07-31-2023 Amorphous sediment LM Ql (Urine sed) 2+ [facility] Basophil percentageOrdered B y: Tab Dupont on 07-31-2023 Basophil percentage 50-100 SEEN /hpf 0-5 [facility] Bilirubin Test strip Ql (U)O rdered By: Tab Dupont on 07-31-2023 Bilirubin Ql (U) Negative Negative [facility] Culture, urineOrdered By: Vinh Lehman on 07-31-2023 Bacteria identified Cx Nom (U) ESBL Klebsiella pneumoniae pne [facility] Bacteria identified Cx Nom (U) Proteus mirabilis [facility] Ketones Test strip Ql (U)Ord ered By: Tab Dupont on 07-31-2023 Ketones Ql (U) Negative Negative [facility] Mucus LM Ql (Urine sed)Order ed By: Tab Dupont on 07-31-2023 Mucus Ql (Urine sed) 0 SEEN /hpf [facility] Nitrite Test strip Ql (U)Ord ered By: Tab Dupont on 07-31-2023 Nitrite Ql (U) Negative Negative [facility] Protein Test strip Ql (U)Ord ered By: Tab Dupont on 07-31-2023 Protein Ql (U) 30 mg/dl Negative [facility] Squamous epithelial cells de tection in urine sediment by light microscopyOrdered By: Tab Dupont on 07-31-2023 Epithelial cells.squamous LM Ql (Urine sed) 0 SEEN /hpf 0-5 [facility] Urine blood detectionOrdered By: Tab Dupont on 07-31-2023 RBC Ql (U) 250 /ul Negative [facility] RBC Ql (U) 10-25 SEEN /hpf 0-5 [facility] Urine clarityOrdered By: Regino Dupont on 07-31-2023 Clarity (U) Cloudy Clear [facility] Urine color determinationOrd ered By: Tab Dupont on 07-31-2023 Color (U) Yellow Yellow [facility] Urine glucose detectionOrder ed By: Tab Dupont on 07-31-2023 Glucose Ql (U) Normal mg/dl Normal [facility] Urine leukocyte esterase det ection by dipstickOrdered By: Tab Dupont on 07-31-2023 Leukocyte esterase Test strip Ql (U) 500 /ul Negative [facility] Urine pHOrdered By: Tab cordova on 07-31-2023 pH (U) 7.0 [pH] 5.0 - 8.0 [facility] Urine sediment bacteria coun t by microscopy (number/high power field)Ordered By: Tab Dupont on 07-31-2023 Bacteria LM.HPF (Urine sed) [#/Area] 0 /[HPF] None Seen [facility] Urine specific gravity measu rementOrdered By: Tab Dupont on 07-31-2023 Specific gravity (U) [Rel density] 1.010 1.002-1.030 [facility] Urobilinogen Auto test strip Ql (U)Ordered By: Tab Dupont on 07-31-2023 Urobilinogen Ql (U) Normal mg/dl Normal [facility] Basophil percentageOrdered B y: Tab Dupont on 06-29-2023 Chloride [Moles/Vol] 108 mmol/L 98-107 [facility] Glucose [Mass/Vol] 169 mg/dL 74-106 [facility] Comment on above: Fasting Glucose resu lt greater than or equal to 126 mg/dL suggests DIABETES MELLITUS per A.D.A. criteria. Potassium [Moles/Vol] 3.4 mmol/L 3.5-5.1 [facility] Sodium [Moles/Vol] 139 mmol/L 136-145 [facility] WBC (Bld) [#/Vol] 6.4 10*3/uL 4.4-11.0 [facility] Blood erythrocytes count (nu mber/volume)Ordered By: Tab Dupont on 06-29-2023 RBC (Bld) [#/Vol] 4.05 10*6/uL 4.6-6.2 [facility] Blood hemoglobin measurement (mass/volume)Ordered By: Tab Dupont on 06-29-2023 Hemoglobin (Bld) [Mass/Vol] 12.6 g/dL 13.0-16.5 [facility] Blood platelet mean volumeOr dered By: Tab Dupont on 06-29-2023 Platelet mean volume (Bld) [Entitic vol] 10.0 fL 6.2-12.0 [facility] Determination of erythrocyte mean corpuscular volume (MCV)Ordered By: Tab Dupont on 06-29-2023 MCV (RBC) [Entitic vol] 97.3 fL 80-94 [facility] Hematocrit Auto (Bld) [Volum e fraction]Ordered By: Tab Dupont on 06-29-2023 Hematocrit (Bld) [Volume fraction] 39.4 % 40-54 [facility] Laboratory - Chemistry and C hemistry - challengeOrdered By: Tab Dupont on 06-29-2023 CO2 [Moles/Vol] 24.0 mmol/L 21.0-32.0 [facility] Urea nitrogen/Creatinine [Mass ratio] 28.8 mg/mg 10-20 [facility] Laboratory - Hematology and Cell countsOrdered By: Tab Dupont on 06-29-2023 Erythrocyte distribution width (RBC) [Entitic vol] 48.6 fL 35.1-43.9 [facility] Erythrocyte distribution width (RBC) [Ratio] 13.6 % 11.6-14.6 [facility] MCH (RBC) [Entitic mass] 31.1 pg 27.0-32.0 [facility] MCHC Auto (RBC) [Mass/Vol]Or dered By: Tab Dupont on 06-29-2023 MCHC (RBC) [Mass/Vol] 32.0 g/dL 32-36 [facility] No Panel InformationOrdered By: Tab Dupont on 06-29-2023 Estimated GFR (MDRD) Amer 207 mL/min >60 [facility] Comment on above: GFR Calc Estimated GFR (MDRD) Non-Af Amer 171 mL/min >60 [facility] Comment on above: Non- GFR Calc Platelets bldOrdered By: Regino Dupont on 06-29-2023 Platelets (Bld) [#/Vol] 243 10*3/uL 150-450 [facility] Serum or plasma calcium randall urement (mass/volume)Ordered By: Tab Dupont on 06-29-2023 Calcium [Mass/Vol] 8.3 mg/dL 8.5-10.1 [facility] Serum or plasma creatinine m easurement (mass/volume)Ordered By: Tab Dupont on 06-29-2023 Creatinine [Mass/Vol] 0.52 mg/dL 0.70-1.30 [facility] Comment on above: The validity of the calculated GFR & GFRAA in patients over 70 years has not been determined. Clinical correlation is essential. Serum or plasma urea nitroge n measurement (mass/volume)Ordered By: Tab Dupont on 06-29-2023 Urea nitrogen [Mass/Vol] 15 mg/dL 7-18 [facility] Thin prep Papanicolaou smear with manual screeningOrdered By: Tab Dupont on 06-29-2023 Thin prep Papanicolaou smear with manual screening 7 5-15 [facility] Basophil percentageOrdered B y: Tab Dupont on 06-01-2023 Chloride [Moles/Vol] 112 mmol/L 98-107 [facility] Glucose [Mass/Vol] 133 mg/dL 74-106 [facility] Comment on above: Fasting Glucose resu lt greater than or equal to 126 mg/dL suggests DIABETES MELLITUS per A.D.A. criteria. Potassium [Moles/Vol] 3.8 mmol/L 3.5-5.1 [facility] Sodium [Moles/Vol] 141 mmol/L 136-145 [facility] WBC (Bld) [#/Vol] 6.8 10*3/uL 4.4-11.0 [facility] Blood erythrocytes count (nu mber/volume)Ordered By: Tab Dupont on 06-01-2023 RBC (Bld) [#/Vol] 3.96 10*6/uL 4.6-6.2 [facility] Blood hemoglobin measurement (mass/volume)Ordered By: Tab Dupont on 06-01-2023 Hemoglobin (Bld) [Mass/Vol] 12.7 g/dL 13.0-16.5 [facility] Blood platelet mean volumeOr dered By: Tab Dupont on 06-01-2023 Platelet mean volume (Bld) [Entitic vol] 10.1 fL 6.2-12.0 [facility] Determination of erythrocyte mean corpuscular volume (MCV)Ordered By: Tab Dupont on 06-01-2023 MCV (RBC) [Entitic vol] 99.7 fL 80-94 [facility] Hematocrit Auto (Bld) [Volum e fraction]Ordered By: Tab Dupont on 06-01-2023 Hematocrit (Bld) [Volume fraction] 39.5 % 40-54 [facility] Laboratory - Chemistry and C hemistry - challengeOrdered By: Tab Dupont on 06-01-2023 CO2 [Moles/Vol] 25.0 mmol/L 21.0-32.0 [facility] Urea nitrogen/Creatinine [Mass ratio] 29.2 mg/mg 10-20 [facility] Laboratory - Hematology and Cell countsOrdered By: Tab Dupont on 06-01-2023 Erythrocyte distribution width (RBC) [Entitic vol] 54.3 fL 35.1-43.9 [facility] Erythrocyte distribution width (RBC) [Ratio] 14.6 % 11.6-14.6 [facility] MCH (RBC) [Entitic mass] 32.1 pg 27.0-32.0 [facility] MCHC Auto (RBC) [Mass/Vol]Or dered By: Tab Dupont on 06-01-2023 MCHC (RBC) [Mass/Vol] 32.2 g/dL 32-36 [facility] No Panel InformationOrdered By: Tab Dupont on 06-01-2023 Estimated GFR (MDRD) Amer 227 mL/min >60 [facility] Comment on above: GFR Calc Estimated GFR (MDRD) Non-Af Amer 188 mL/min >60 [facility] Comment on above: Non- GFR Calc Platelets bldOrdered By: Regino Dupont on 06-01-2023 Platelets (Bld) [#/Vol] 274 10*3/uL 150-450 [facility] Serum or plasma calcium randall urement (mass/volume)Ordered By: Tab Dupont on 06-01-2023 Calcium [Mass/Vol] 8.5 mg/dL 8.5-10.1 [facility] Serum or plasma creatinine m easurement (mass/volume)Ordered By: Tab Dupont on 06-01-2023 Creatinine [Mass/Vol] 0.48 mg/dL 0.70-1.30 [facility] Comment on above: The validity of the calculated GFR & GFRAA in patients over 70 years has not been determined. Clinical correlation is essential. Serum or plasma urea nitroge n measurement (mass/volume)Ordered By: Tab Dupont on 06-01-2023 Urea nitrogen [Mass/Vol] 14 mg/dL 7-18 [facility] Thin prep Papanicolaou smear with manual screeningOrdered By: Tab Dupont on 06-01-2023 Thin prep Papanicolaou smear with manual screening 4 5-15 [facility] Urinalysis complete panel (U )Ordered By: Darya Nazario on 05-23-2023 Bacteria LM.HPF (Urine sed) [#/Area] Moderate Abnormal Negative /HPF [facility] Bilirubin Ql (U) Negative Negative mg/dL [facility] Clarity (U) Extra Turbid Abnormal Clear [facility] Color (U) Yellow Lt. Yellow [facility] Epithelial cells.squamous LM.HPF (Urine sed) [#/Area] 0-2 [facility] Glucose Ql (U) Normal Normal (<70) mg/dL [facility] Hemoglobin Ql (U) 0.1 mg/dL Abnormal Negative [facility] Interpretation and review of laboratory results Abnormal [facility] Ketones (U) [Mass/Vol] Negative Negat mary grace mg/dL [facility] Leukocyte clumps LM.HPF (Urine sed) [#/Area] Moderate Abnormal Negative /HPF [facility] Leukocyte esterase Test strip Ql (U) 500 Abnormal Negative Da/uL [facility] Mucus LM.HPF (Urine sed) [#/Area] Few Negative /LPF [facility] Nitrite Ql (U) Positive Abnormal Negative [facility] pH (U) 8.0 [pH] 5.0 - 8.0 pH [facility] Protein (U) [Mass/Vol] 100 mg/dL Abnormal Negative [facility] RBC LM.HPF (Urine sed) [#/Area] /[HPF] Abnormal [facility] Specific gravity (U) [Rel density] 1.014 1.005 - 1.030 [facility] Triple phosphate crystals LM.HPF (Urine sed) [#/Area] Moderate Abnormal Negative /HPF [facility] Urobilinogen (U) [Mass/Vol] Normal Normal (0-1) mg/dL [facility] WBC LM.HPF (Urine sed) [#/Area] /[HPF] Abnormal [facility] Basophil percentageOrdered B y: Tab Dupont on 05-04-2023 Bilirubin [Mass/Vol] 0.20 mg/dL 0.20-1.00 [facility] Comment on above: For patients on eltr ombopag therapy, use of Dimension [place] TBIL is not recommended. Chloride [Moles/Vol] 109 mmol/L 98-107 [facility] Glucose [Mass/Vol] 183 mg/dL 74-106 [facility] Comment on above: Fasting Glucose resu lt greater than or equal to 126 mg/dL suggests DIABETES MELLITUS per A.D.A. criteria. Potassium [Moles/Vol] 4.0 mmol/L 3.5-5.1 [facility] Protein [Mass/Vol] 6.0 g/dL 6.4-8.2 [facility] Sodium [Moles/Vol] 139 mmol/L 136-145 [facility] WBC (Bld) [#/Vol] 6.7 10*3/uL 4.4-11.0 [facility] Blood erythrocytes count (nu mber/volume)Ordered By: Tab Dupont on 05-04-2023 RBC (Bld) [#/Vol] 3.31 10*6/uL 4.6-6.2 [facility] Blood hemoglobin measurement (mass/volume)Ordered By: Tab Dupont on 05-04-2023 Hemoglobin (Bld) [Mass/Vol] 10.2 g/dL 13.0-16.5 [facility] Blood platelet mean volumeOr dered By: Tab Dupont on 05-04-2023 Platelet mean volume (Bld) [Entitic vol] 10.2 fL 6.2-12.0 [facility] Determination of erythrocyte mean corpuscular volume (MCV)Ordered By: Tab Dupont on 05-04-2023 MCV (RBC) [Entitic vol] 99.1 fL 80-94 [facility] Hematocrit Auto (Bld) [Volum e fraction]Ordered By: Tab Dupont on 05-04-2023 Hematocrit (Bld) [Volume fraction] 32.8 % 40-54 [facility] Laboratory - Chemistry and C hemistry - challengeOrdered By: Tab Dupont on 05-04-2023 ALP [Catalytic activity/Vol] 104 U/L 45-117 [facility] ALT [Catalytic activity/Vol] 17 U/L 16-61 [facility] CO2 [Moles/Vol] 26.0 mmol/L 21.0-32.0 [facility] Globulin (S) [Mass/Vol] 3.8 g/dL 2.2-4.2 [facility] Urea nitrogen/Creatinine [Mass ratio] 21.9 mg/mg 10-20 [facility] Laboratory - Hematology and Cell countsOrdered By: Tab Dupont on 05-04-2023 Erythrocyte distribution width (RBC) [Entitic vol] 48.8 fL 35.1-43.9 [facility] Erythrocyte distribution width (RBC) [Ratio] 13.5 % 11.6-14.6 [facility] MCH (RBC) [Entitic mass] 30.8 pg 27.0-32.0 [facility] MCHC Auto (RBC) [Mass/Vol]Or dered By: Tab Dupont on 05-04-2023 MCHC (RBC) [Mass/Vol] 31.1 g/dL 32-36 [facility] No Panel InformationOrdered By: Tab Dupont on 05-04-2023 Estimated GFR (MDRD) Amer 195 mL/min >60 [facility] Comment on above: GFR Calc Estimated GFR (MDRD) Non-Af Amer 161 mL/min >60 [facility] Comment on above: Non- GFR Calc Platelets bldOrdered By: Regino Dupont on 05-04-2023 Platelets (Bld) [#/Vol] 290 10*3/uL 150-450 [facility] Serum or plasma albumin randall urement (mass/volume)Ordered By: Tab Dupont on 05-04-2023 Albumin [Mass/Vol] 2.2 g/dL 3.2-5.0 [facility] Serum or plasma albumin/glob ulin mass ratioOrdered By: Tab Dupont on 05-04-2023 Albumin/Globulin [Mass ratio] 0.6 {ratio} 0.9-2.4 [facility] Serum or plasma calcium randall urement (mass/volume)Ordered By: Tab Dupont on 05-04-2023 Calcium [Mass/Vol] 8.4 mg/dL 8.5-10.1 [facility] Serum or plasma creatinine m easurement (mass/volume)Ordered By: Tab Dupont on 05-04-2023 Creatinine [Mass/Vol] 0.55 mg/dL 0.70-1.30 [facility] Comment on above: The validity of the calculated GFR & GFRAA in patients over 70 years has not been determined. Clinical correlation is essential. Serum or plasma urea nitroge n measurement (mass/volume)Ordered By: Tab Dupont on 05-04-2023 Urea nitrogen [Mass/Vol] 12 mg/dL 7-18 [facility] Thin prep Papanicolaou smear with manual screeningOrdered By: Tab Dupont on 05-04-2023 Thin prep Papanicolaou smear with manual screening 16 U/L 15-37 [facility] Thin prep Papanicolaou smear with manual screening 4 5-15 [facility] Basophil percentageOrdered B y: Tab Dupont on 03-25-2023 Bilirubin [Mass/Vol] 0.30 mg/dL 0.20-1.00 [facility] Comment on above: For patients on eltr ombopag therapy, use of Dimension [place] TBIL is not recommended. Chloride [Moles/Vol] 107 mmol/L 98-107 [facility] Cholesterol [Mass/Vol] 163 mg/dL <200 [facility] Comment on above: <200 mg/dL Desirable 200-240 mg/dL Borderline >240 mg/dL High Risk Glucose [Mass/Vol] 119 mg/dL 74-106 [facility] Comment on above: Fasting Glucose resu lt from 100 to 125 mg/dL suggests IMPAIRED HOMEOSTASIS per A.D.A. criteria. Potassium [Moles/Vol] 3.6 mmol/L 3.5-5.1 [facility] Protein [Mass/Vol] 6.7 g/dL 6.4-8.2 [facility] Sodium [Moles/Vol] 137 mmol/L 136-145 [facility] Triglyceride [Mass/Vol] 139 mg/dL <199 [facility] Comment on above: The drugs N-Acetylcy steine and Metamizole may falsely depress this assay.Serum Triglycerides Reference Interval Normal <150 mg/dL Borderline high 150 - 199 mg/dL High 200 - 499 mg/dL Very High > or = 500 mg/dL WBC (Bld) [#/Vol] 6.8 10*3/uL 4.4-11.0 [facility] Blood erythrocytes count (nu mber/volume)Ordered By: Tab Dupont on 03-25-2023 RBC (Bld) [#/Vol] 3.71 10*6/uL 4.6-6.2 [facility] Blood hemoglobin measurement (mass/volume)Ordered By: Tab Dupont on 03-25-2023 Hemoglobin (Bld) [Mass/Vol] 11.6 g/dL 13.0-16.5 [facility] Blood platelet mean volumeOr dered By: Tab Dupont on 03-25-2023 Platelet mean volume (Bld) [Entitic vol] 9.9 fL 6.2-12.0 [facility] Determination of erythrocyte mean corpuscular volume (MCV)Ordered By: Tab Dupont on 03-25-2023 MCV (RBC) [Entitic vol] 99.5 fL 80-94 [facility] Hematocrit Auto (Bld) [Volum e fraction]Ordered By: Tab Dupont on 03-25-2023 Hematocrit (Bld) [Volume fraction] 36.9 % 40-54 [facility] Laboratory - Chemistry and C hemistry - challengeOrdered By: Tab Dupont on 03-25-2023 ALP [Catalytic activity/Vol] 121 U/L 45-117 [facility] ALT [Catalytic activity/Vol] 18 U/L 16-61 [facility] CO2 [Moles/Vol] 23.0 mmol/L 21.0-32.0 [facility] Globulin (S) [Mass/Vol] 4.3 g/dL 2.2-4.2 [facility] Urea nitrogen/Creatinine [Mass ratio] 22.6 mg/mg 10-20 [facility] Laboratory - Hematology and Cell countsOrdered By: Tab Dupont on 03-25-2023 Erythrocyte distribution width (RBC) [Entitic vol] 50.3 fL 35.1-43.9 [facility] Erythrocyte distribution width (RBC) [Ratio] 13.5 % 11.6-14.6 [facility] MCH (RBC) [Entitic mass] 31.3 pg 27.0-32.0 [facility] MCHC Auto (RBC) [Mass/Vol]Or dered By: Tab Dupont on 03-25-2023 MCHC (RBC) [Mass/Vol] 31.4 g/dL 32-36 [facility] No Panel InformationOrdered By: Tab Dupont on 03-25-2023 Estimated GFR (MDRD) Amer 250 mL/min >60 [facility] Comment on above: GFR Calc Estimated GFR (MDRD) Non-Af Amer 207 mL/min >60 [facility] Comment on above: Non- GFR Calc Prostate Specific Antigen Screen 0.59 ng/mL 0.00-4.00 [facility] Comment on above: This test was perfor med using the TPSA assay method for theAccurence chemistry system. Values obtained with differentassay methods cannot be used interchangably.When changing PSA assays in the course of monitoring apatient, additional sequential testing should be carriedout to confirm baseline values. Thyroid Stimulating Hormone (TSH) 3.33 uIU/mL 0.358-3.74 [facility] Platelets bldOrdered By: Regino Dupont on 03-25-2023 Platelets (Bld) [#/Vol] 301 10*3/uL 150-450 [facility] Serum or plasma albumin randall urement (mass/volume)Ordered By: Tab Dupont on 03-25-2023 Albumin [Mass/Vol] 2.4 g/dL 3.2-5.0 [facility] Serum or plasma albumin/glob ulin mass ratioOrdered By: Tab Dpuont on 03-25-2023 Albumin/Globulin [Mass ratio] 0.6 {ratio} 0.9-2.4 [facility] Serum or plasma calcium randall urement (mass/volume)Ordered By: Tab Dupont on 03-25-2023 Calcium [Mass/Vol] 8.7 mg/dL 8.5-10.1 [facility] Serum or plasma cholesterol in HDL measurement (mass/volume)Ordered By: Tab Dupont on 03-25-2023 Cholesterol in HDL [Mass/Vol] 27 mg/dL >40 [facility] Comment on above: The drugs N-Acetylcy steine and Metamizole may falsely depress this assay. Reference Range HDL <40 mg/dL Low HDL Cholesterol HDL >or= 60 mg/dL High HDL Cholesterol Serum or plasma cholesterol in VLDL measurement (mass/volume)Ordered By: Tab Dupont on 03-25-2023 Cholesterol in VLDL [Mass/Vol] 28 mg/dL 5-40 [facility] Serum or plasma creatinine m easurement (mass/volume)Ordered By: Tab Dupont on 03-25-2023 Creatinine [Mass/Vol] 0.44 mg/dL 0.70-1.30 [facility] Comment on above: The validity of the calculated GFR & GFRAA in patients over 70 years has not been determined. Clinical correlation is essential. Serum or plasma low density lipoprotein (LDL) cholesterol measurement (mass/volume)Ordered By: Tab Dupont on 03-25-2023 Cholesterol in LDL [Mass/Vol] 108 mg/dL 0-130 [facility] Serum or plasma urea nitroge n measurement (mass/volume)Ordered By: Tab Dupont on 03-25-2023 Urea nitrogen [Mass/Vol] 10 mg/dL 7-18 [facility] Thin prep Papanicolaou smear with manual screeningOrdered By: Tab Dupont on 03-25-2023 Thin prep Papanicolaou smear with manual screening 13 U/L 15-37 [facility] Thin prep Papanicolaou smear with manual screening 7 5-15 [facility] CNPNon 12-02-2021 CNPN Telephone (HCSIND) ANMOL REYNOLDS ([id number]) 1960 M Date Time Provider Department 12/02/21 VITALY SMALLWOOD HCSSAMUEL During your visit today, we recorded the [...] (Blistex) - sodium chloride 0.65 % 2 [place] (AYR, OCEAN) - saliva substitute combo no.9 [...] Of Date 12/02/2021 Noted Resolved NO SHOW [[id number]] 08/31/2013 05/29/2020 Perineal abscess [L02.215] 06/13/2019 05/29/2020 [...] Encounter Status:Closed by VITALY SMALLWOOD on 12/02/[address] [facility] CNPN Telephone (HCSIND) ANMOL REYNOLDS ([id number]) 1960 M Date Time Provider Department 12/02/21 VITALY SMALLWOOD HCSSAMUEL During your visit today, we recorded the following information about you: Vitaly Smallwood LPN 12/02/2021 9:05 AM Signed Ambrosio Monroy, DO Please advise if you are agreeable to signing and following for [facility] services? Our Clinicians will be sending the Plan of Care to you for review and approval. They will reach out for any appropriate orders required to provide home care services for the patient. We are not able to initiate [facility] services without a following provider. Thank you and we would be happy to answer any questions. Vitaly Smallwood LPN 12/02/2021 9:04 AM Vitaly Smallwood LPN 12/03/2021 11:48 AM Signed Call made to office, Per Dr. Eliana Packer will follow. [...] (Blistex) - sodium chloride 0.65 % 2 [place] (AYR, OCEAN) - saliva substitute combo no.9 [...] Of Date 12/02/2021 Noted Resolved NO SHOW [] 08/31/2013 05/29/2020 [...] WALLACE SMALLWOOD (more content not included)... Normal [facility] ANMOL REYNOLDS ([id number]) 1960 M Date Time Provider Department 12/02/21 VITALY SMALLWOOD During your visit today, we recorded the following information about you: Vitaly Smallwood LPN 12/02/2021 9:06 AM Signed Please advise if you are agreeable to signing and following for [facility] services? Our Clinicians will be sending the Plan of Care to you for review and approval. They will reach out for any appropriate orders required to provide home care services for the patient. We are not able to initiate [facility] services without a following provider. Thank you [...] (Blistex) - sodium chloride 0.65 % 2 [place] (AYR, OCEAN) - saliva substitute combo no.9 [...] Of Date 12/02/2021 Noted Resolved NO SHOW [[id number]] 08/31/2013 05/29/2020 Perineal abscess [L02.215] 06/13/2019 05/29/2020 [...] Status:Closed by VITALY SMALLWOOD on 12/02/21 Normal [facility] ANTISMOOTH MUSCLE ABon 10-15 ANTISMOOTH MUSCLE AB Negative Normal NEGATIVE [facility] Comment on above: Performed By: #### A SMAB #### [facility] [address] [place] [address] SEEMA-WITH REFLEX TO ENAon SEEMA WITH REFLEX TO AYDEE Negative Normal NEGATIVE [facility] Comment on above: Result Comment: The Antinuclear Antibody (SEEMA) test was performed using indirect immunofluorescence assay with HEp-2 cells slide. Performed By: #### A NA2 #### [facility] [address] [place] [address] COMPREHENSIVE PANELon 2021 Glucose [Mass/Vol] 916 mg/dL Critically high 74 - 99 [facility] Comment on above: Order Comment: READ BACK CRIT GLU TO [place], 10/12/2021 00:08 Result Comment: READ BACK CRIT GLU TO [place], 10/12/2021 00:08 Performed By: #### C MP #### [facility] [address] [place] [address] Albumin [Mass/Vol] 3.9 g/dL Normal 3.4 - 5.0 [facility] Comment on above: Order Comment: READ BACK CRIT GLU TO [place], 10/12/2021 00:08 Performed By: #### C MP #### [facility] [address] [place] [address] ALP [Catalytic activity/Vol] 235 U/L High 33 - 136 [facility] Comment on above: Order Comment: READ BACK CRIT GLU TO [place], 10/12/2021 00:08 Performed By: #### C MP #### [facility] [address] [place] [address] ALT [Catalytic activity/Vol] 192 U/L High 10 - 52 [facility] Comment on above: Order Comment: READ BACK CRIT GLU TO [place], 10/12/2021 00:08 Result Comment: Blanca ents treated with Sulfasalazine may generate falsely decreased results for ALT. Performed By: #### C MP #### [facility] [address] [place] [address] Anion gap [Moles/Vol] 16 mmol/L Normal 10 - 20 [facility] Comment on above: Order Comment: READ BACK CRIT GLU TO [place], 10/12/2021 00:08 Performed By: #### C MP #### [facility] [address] [place] [address] AST [Catalytic activity/Vol] 141 U/L High 9 - 39 [facility] Comment on above: Order Comment: READ BACK CRIT GLU TO [place], 10/12/2021 00:08 Performed By: #### C MP #### [facility] [address] [place] [address] Bilirubin [Mass/Vol] 0.7 mg/dL Normal 0.0 - 1.2 [facility] Comment on above: Order Comment: READ BACK CRIT GLU TO [place], 10/12/2021 00:08 Performed By: #### C MP #### [facility] [address] [place] [address] Calcium [Mass/Vol] 9.0 mg/dL Normal 8.6 - 10.6 [facility] Comment on above: Order Comment: READ BACK CRIT GLU TO [place], 10/12/2021 00:08 Performed By: #### C MP #### [facility] [address] [place] [address] Chloride [Moles/Vol] 91 mmol/L Low 98 - 107 [facility] Comment on above: Order Comment: READ BACK CRIT GLU TO [place], 10/12/2021 00:08 Performed By: #### C MP #### [facility] [address] [place] [address] Creatinine [Mass/Vol] 0.62 mg/dL Normal 0.50 - 1.30 [facility] Comment on above: Order Comment: READ BACK CRIT GLU TO [place], 10/12/2021 00:08 Performed By: #### C MP #### [facility] [address] [place] [address] eGFR MALE >90 Normal >90 [facility] Comment on above: Order Comment: READ BACK CRIT GLU TO [place], 10/12/2021 00:08 Result Comment: CALC ULATIONS OF ESTIMATED GFR ARE PERFORMED USING THE 2020 CKD-EPI STUDY REFIT EQUATION WITHOUT THE RACE VARIABLE FOR THE IDMS-TRACEABLE CREATININE METHODS. https://jasn.asnjournals.org/content//ASN.475 7777586 Performed By: #### C MP #### [facility] [address] [place] [address] HCO3 (Bld) [Moles/Vol] 25 mmol/L Normal 21 - 32 [facility] Comment on above: Order Comment: READ BACK CRIT GLU TO [place], 10/12/2021 00:08 Performed By: #### C MP #### [facility] [address] [place] [address] Potassium [Moles/Vol] 4.5 mmol/L Normal 3.5 - 5.3 [facility] Comment on above: Order Comment: READ BACK CRIT GLU TO [place], 10/12/2021 00:08 Performed By: #### C MP #### [facility] [address] [place] [address] Protein [Mass/Vol] 5.9 g/dL Low 6.4 - 8.2 [facility] Comment on above: Order Comment: READ BACK CRIT GLU TO [place], 10/12/2021 00:08 Performed By: #### C MP #### [facility] [address] [place] [address] Sodium [Moles/Vol] 127 mmol/L Low 136 - 145 [facility] Comment on above: Order Comment: READ BACK CRIT GLU TO [place], 10/12/2021 00:08 Performed By: #### C MP #### [facility] [address] [place] [address] Urea nitrogen [Mass/Vol] 14 mg/dL Normal 6 - 23 [facility] Comment on above: Order Comment: READ BACK CRIT GLU TO [place], 10/12/2021 00:08 Performed By: #### C MP #### [facility] [address] [place] [address] FERRITINon 10-12-2021 FERRITIN 1311 ug/L High 20 - 300 [facility] Comment on above: Performed By: #### F ERRI #### [facility] [address] [place] [address] IGG SUBCLASS 4on 10-12-2021 IGG SUBCLASS 4 25 mg/dL Normal 3 - 200 [facility] Comment on above: Performed By: #### I GGG4 #### [facility] [address] [place] [address] IRON + TIBCon 10-12-2021 % SATURATION 70 % High 25 - 45 [facility] Comment on above: Performed By: #### I RONT #### [facility] [address] [place] [address] Iron [Mass/Vol] 180 ug/dL High 35 - 150 [facility] [place] Comment on above: Performed By: #### I RONT #### [facility] [address] [place] [address] TIBC 257 ug/dL Normal 240 - 445 [facility] Comment on above: Performed By: #### I RONT #### [facility] [address] [place] [address] Sahil 09-10-2021 CNPN Telephone (PODCCP) ANMOL REYNOLDS ([id number]) 1960 M Date Time Provider Department 09/10/21 [...] Of Date 09/10/2021 Noted Resolved NO SHOW [[id number]] 08/31/2013 05/29/2020 Perineal abscess [L02.215] 06/13/2019 05/29/2020 [...] Encounter Status:Closed by NEHEMIAS MCMANUS on 09/10/[address] [facility] Sahil 08-14-2021 SHARIFA Telephone ([employer]) GIVEN,ANMOL ([id number]) 1960 M Date Time Provider Department 08/14/21 [...] Of Date 08/14/2021 Noted Resolved NO SHOW [[id number]] 08/31/2013 05/29/2020 Perineal abscess [L02.215] 06/13/2019 05/29/2020 Nicotine use disorder, F17.2 [F17.200] 06/14/2019 Pilonidal cyst without abscess [L05.91] 05/29/2020 Pilonidal cyst with abscess [L05.01] 12/31/2020 Perirectal abscess [K61.1] 01/16/2021 Diabetes (HCC) [E11.9] 01/18/2021 Encounter Status:Closed by BRYNN ARREOLA on 08/14/[address] [facility] Sahil 08-09-2021 CNPN Telephone (GENDENIS) GIVENANMOL ([id number]) 1960 M Date Time Provider Department 08/09/21 PENNY CAMERON During your visit today, we recorded the following information about you: Byron Espinal RN 08/09/2021 2:56 PM Signed Records received from digestive disease consultants Records labeled and placed in records folder near [facility] desk Allergies As of Date: 08/09/2021 (No Known Allergies) Date Reviewed: 08/08/2021 Reviewed by: Penny Cameron MD - Fully Assessed Reason for Visit: Received Outside Medical Records [1026] Prescriptions as of 08/23/2021 - gabapentin (NEURONTIN) [...] Of Date 08/09/2021 Noted Resolved NO SHOW [[id number]] 08/31/2013 05/29/2020 Perineal abscess [L02.215] 06/13/2019 05/29/2020 Nicotine use disorder, F17.2 [F17.200] 06/14/2019 Pilonidal cyst without abscess [L05.91] 05/29/2020 Pilonidal cyst with abscess [L05.01] 12/31/2020 Perirectal abscess [K61.1] 01/16/2021 Diabetes (HCC) [E11.9] 01/18/2021 Encounter Status:Closed by BYRON ESPINAL RN on 08/23/[address] [facility] CNOVon 08-05-2021 CNOV Office Visit (COLEMAN ) ANMOL REYNOLDS ([id number]) 1960 M Date Time Provider Department 08/05/21 [...] at 1 (more content not included)... Normal [facility] CA 19-9on 05-23-2021 CA 19-9 284 U/mL High <36 [facility] Comment on above: Performed By: #### C A199 #### [facility] Immunology [address] [address] #### TSH, FT4, FREET3 #### [facility] Routine Lab [address] [place], [place] [id number] Free T3on 05-22-2021 Free T3 [Mass/Vol] 1.7 pg/mL Low 2.3-4.1 [facility] Comment on above: Performed By: #### C A199 #### [facility] Immunology [address] [place], [place] [id number] #### TSH, FT4, FREET3 #### [facility]ine Lab [address] [place] [address] Free T4on 05-22-2021 Free T4 [Mass/Vol] 1.2 ng/dL Normal 0.9-1.7 [facility] Comment on above: Performed By: #### C A199 #### [facility] Immunology [address] [place] [address] #### TSH, FT4, FREET3 #### [facility]ine Lab [address] [place], [place] [id number] TSHon 05-22-2021 TSH Qn 1.450 m[IU]/L Normal 0.270-4.200 [facility] Comment on above: Performed By: #### C A199 #### [facility] Immunology [address] [place] [address] #### TSH, FT4, FREET3 #### [facility]ine Lab [address] [place], [place] [id number] Basic Metabolic Panelon 10-06 Anion gap [Moles/Vol] 14 mmol/L Normal 9-15 [facility] Comment on above: Performed By: #### B MP #### [facility] [address] [place] [address] Calcium [Mass/Vol] 8.4 mg/dL Low 8.5-9.9 [facility] Comment on above: Performed By: #### B MP #### [facility] [address] [place] [address] Chloride [Moles/Vol] 100 mmol/L Normal 95-107 [facility] Comment on above: Performed By: #### B MP #### [facility] [address] [place] [address] CO2 [Moles/Vol] 23 mmol/L Normal 20-31 [facility] Comment on above: Performed By: #### B MP #### [facility] [address] [place] [address] Creatinine [Mass/Vol] 0.57 mg/dL Low 0.70-1.20 [facility] Comment on above: Performed By: #### B MP #### [facility] [address] [place] [address] GFR/1.73 sq M predicted among blacks MDRD (S/P/Bld) [Vol rate/Area] mL/min/{1.73_m2} Normal >60 [facility] Comment on above: Result Comment: >60 mL/min/1.73m2 EGFR, calc. for ages 18 and older using the MDRD formula (not corrected for weight), is valid for stable renal function. Performed By: #### B MP #### [facility] [address] [place] [address] GFR/1.73 sq M.predicted MDRD (S/P/Bld) [Vol rate/Area] mL/min/{1.73_m2} Normal >60 [facility] Comment on above: Result Comment: >60 mL/min/1.73m2 EGFR, calc. for ages 18 and older using the MDRD formula (not corrected for weight), is valid for stable renal function. Performed By: #### B MP #### [facility] [address] [place] [address] Glucose [Mass/Vol] 245 mg/dL Critically high 70-99 M [facility] Comment on above: Performed By: #### B MP #### [facility] [address] [place] [address] Potassium [Moles/Vol] 3.9 mmol/L Normal 3.4-4.9 [facility] Comment on above: Performed By: #### B MP #### [facility] [address] [place] [address] Sodium [Moles/Vol] 137 mmol/L Normal 135-144 [facility] Comment on above: Performed By: #### B MP #### [facility] [address] [place] [address] Urea nitrogen [Mass/Vol] 13 mg/dL Normal 6-20 [facility] Comment on above: Performed By: #### B MP #### [facility] [address] [place] [address] Anion gap [Moles/Vol] 14 mmol/L [place], [place] Calcium [Mass/Vol] 8.4 mg/dL Low 8.5 - 9.9 mg/dL [place], [place] Chloride [Moles/Vol] 100 mmol/L [place], [place] CO2 [Moles/Vol] 23 mmol/L [place], [place] Creatinine [Mass/Vol] 0.57 mg/dL Low 0.7 - 1.2 mg/dL [place] GFR >60.0 >60 [place] Comment on above: >60 mL/min/1.73m2 EG FR, calc. for ages 18 and older using the MDRD formula (not corrected for weight), is valid for stable renal function. GFR Non- >60.0 >60 [place] Comment on above: >60 mL/min/1.73m2 EG FR, calc. for ages 18 and older using the MDRD formula (not corrected for weight), is valid for stable renal function. Glucose [Mass/Vol] 245 mg/dL High 70 - 99 mg/dL [place] Interpretation and review of laboratory results Abnormal [place] Potassium [Moles/Vol] 3.9 mmol/L [place] Sodium [Moles/Vol] 137 mmol/L [place] Urea nitrogen [Mass/Vol] 13 mg/dL 6 - 20 mg/dL [place] CBC Auto Differentialon 10-06 Basophils (Bld) [#/Vol] 0.0 10*3/uL 0 - 0.2 K/uL [place] Basophils/100 WBC (Bld) 0.4 % [place] Eosinophils (Bld) [#/Vol] 0.2 10*3/uL 0 - 0.7 K/uL [place] Eosinophils/100 WBC (Bld) 1.6 % [place] Erythrocyte distribution width (RBC) [Ratio] 13.1 % 11.5 - 14.5 % [place] Hematocrit (Bld) [Volume fraction] 39.0 % Low 42 - 52 % [place] Hemoglobin (Bld) [Mass/Vol] 13.3 g/dL Low 14 - 18 g/dL [place] Interpretation and review of laboratory results Abnormal [place] Lymphocytes (Bld) [#/Vol] 1.8 10*3/uL 1 - 4.8 K/uL [place] Lymphocytes/100 WBC (Bld) 16.0 % [place] MCH (RBC) [Entitic mass] 33.3 pg High 27 - 31.3 pg [place] MCHC (RBC) [Mass/Vol] 34.0 % 33 - 37 % [place] MCV (RBC) [Entitic vol] 98.0 fL 80 - 100 fL [place] Monocytes (Bld) [#/Vol] 1.2 10*3/uL High 0.2 - 0.8 K/uL [place] Monocytes/100 WBC (Bld) 10.8 % [place] Neutrophils Absolute 7.8 K/uL High 1.4 - 6 .5 K/uL [place] Neutrophils/100 WBC (Bld) 71.2 % [place] Platelets (Bld) [#/Vol] 232 10*3/uL 130 - 400 K/uL [place] RBC (Bld) [#/Vol] 3.98 10*6/uL Low [place] WBC (Bld) [#/Vol] 10.9 10*3/uL High 4.8 - 10.8 K/uL [place] CBC With Platelet and Differ entialon 10-25-2020 Basophils (Bld) [#/Vol] 0.0 10*3/uL Normal 0.0-0.2 [facility] Comment on above: Performed By: #### C BCWD #### [facility] [address] [place] [address] Basophils/100 WBC (Bld) 0.4 % Normal [facility] Comment on above: Performed By: #### C BCWD #### [facility] [address] [place] [address] Eosinophils (Bld) [#/Vol] 0.2 10*3/uL Normal 0.0-0.7 [facility] Comment on above: Performed By: #### C BCWD #### [facility] [address] [place] [address] Eosinophils/100 WBC (Bld) 1.6 % Normal [facility] Comment on above: Performed By: #### C BCWD #### [facility] [address] [place] [address] Erythrocyte distribution width (RBC) [Ratio] 13.1 % Normal 11.5-14.5 [facility] Comment on above: Performed By: #### C BCWD #### [facility] [address] [place] [address] Hematocrit (Bld) [Volume fraction] 39.0 % Low 42.0-52.0 [facility] Comment on above: Performed By: #### C BCWD #### [facility] [address] [place] [address] Hemoglobin (Bld) [Mass/Vol] 13.3 g/dL Low 14.0-18.0 [facility] Comment on above: Performed By: #### C BCWD #### [facility] [address] [place] [address] Lymphocytes (Bld) [#/Vol] 1.8 10*3/uL Normal 1.0-4.8 [facility] Comment on above: Performed By: #### C BCWD #### [facility] [address] [place] [address] Lymphocytes/100 WBC (Bld) 16.0 % Normal [facility] Comment on above: Performed By: #### C BCWD #### [facility] [address] [place] [address] MCH (RBC) [Entitic mass] 33.3 pg Critically high 27.0-[address] [facility] Comment on above: Performed By: #### C BCWD #### [facility] [address] [place] [address] MCHC (RBC) [Mass/Vol] 34.0 % Normal 33.0-37.0 [facility] Comment on above: Performed By: #### C BCWD #### [facility] [address] [place] [address] MCV (RBC) [Entitic vol] 98.0 fL Normal 80.0-100.0 [facility] Comment on above: Performed By: #### C BCWD #### [facility] [address] [place] [address] Monocytes (Bld) [#/Vol] 1.2 10*3/uL Critically high 0.2-0. 8 [facility] Comment on above: Performed By: #### C BCWD #### [facility] [address] [place] [address] Monocytes/100 WBC (Bld) 10.8 % Normal [facility] Comment on above: Performed By: #### C BCWD #### [facility] [address] [place] [address] Neutrophils (Bld) [#/Vol] 7.8 10*3/uL Critically high 1.4-6.5 [facility] Comment on above: Performed By: #### C BCWD #### [facility] [address] [place] [id number] Neutrophils/100 WBC (Bld) 71.2 % Normal [facility] Comment on above: Performed By: #### C BCWD #### [facility] [address] [place] [address] Platelets (Bld) [#/Vol] 232 10*3/uL Normal 130-400 [facility] Comment on above: Performed By: #### C BCWD #### [facility] [address] [place] [address] RBC (Bld) [#/Vol] 3.98 10*6/uL Low 4.70-6.10 [facility] Comment on above: Performed By: #### C BCWD #### [facility] [address] [place] [address] WBC (Bld) [#/Vol] 10.9 10*3/uL Critically high 4.8-10.8 [facility] Comment on above: Performed By: #### C BCWD #### [facility] [address] [place] [address] Hemoglobin A1con 10-25-2020 HbA1c (Bld) [Mass fraction] 12.1 % Critically high 4.8-5.9 [facility] Comment on above: Performed By: #### A 1C ####[facility] [place] [phone] HbA1c (Bld) [Mass fraction] 12.1 % High 4.8 - 5.9 % [place], [place] Interpretation and review of laboratory results Abnormal [place], [place] POCT Glucoseon 10-25-2020 Glucose [Mass/Vol] 372 mg/dL Critically high 60-115 M [facility] Comment on above: Performed By: #### P GLU #### [facility] [address] [place] [address] POC Performed on ACCU-CHEK Normal [facility] Comment on above: Result Comment: Noti fied RN or MD Performed By: #### P GLU #### [facility] [address] [facility] [address] Glucose [Mass/Vol] 372 mg/dL High 60 - 115 mg/dl [place] Interpretation and review of laboratory results Abnormal [place] Performed on ACCU-CHEK [place] Comment on above: Notified RN or MD Glucose [Mass/Vol] 246 mg/dL Critically high 60-115 M [facility] Comment on above: Performed By: #### P GLU #### [facility] [address] [facility] [address] POC Performed on [facility] Comment on above: Performed By: #### P GLU #### [facility] [address] [place] [address] Glucose [Mass/Vol] 246 mg/dL High 60 - 115 mg/dl [place] Interpretation and review of laboratory results Abnormal [place] Performed on ACCU-CHEK [place], [place] LESS THAN 1 HOURon 2020 [...] Mickey Branch DO 10/26/[address] [facility] OPERATIVE REPORTon OPERATIVE REPORT [facility] [address] [place] [address] OPERATIVE REPORT PATIENT NAME: ANMOL REYNOLDS : 1960 MED REC NO: [id number] ROOM: ACCOUNT NO: [id number] ADMIT DATE: 10/24/2020 PROVIDER: Opal Vigil MD [...] The patient tolerated well. OPAL VIGIL MD /[id number] Doc#: [id number] CC: Normal [facility] POCT Glucoseon 10-24-2020 Glucose [Mass/Vol] 439 mg/dL Critically high 60-115 M [facility] Comment on above: Performed By: #### P GLU #### [facility] [address] [facility] [address] POC [facility] Comment on above: Result Comment: Karina chamberlain RN or Performed By: #### P GLU #### [facility] [address] [place] [address] Glucose [Mass/Vol] 439 mg/dL Critically high 60 - 1 15 mg/dl [place] Interpretation and review of laboratory results Abnormal [place] Performed on ACCU-CHEK [place] Comment on above: Notified RN or Glucose [Mass/Vol] 251 mg/dL Critically high 60-115 M [facility] Comment on above: Performed By: #### P GLU #### [facility] [address] [facility] [place] [address] POC Performed on [facility]Kit [facility] Comment on above: Performed By: #### P GLU #### [facility] [address] [facility] [place] [address] Glucose [Mass/Vol] 251 mg/dL High 60 - 115 mg/dl [place] Interpretation and review of laboratory results Abnormal [place] Performed on ACCU-CHEK [place] Glucose [Mass/Vol] 299 mg/dL Critically high 60-115 M [facility] Comment on above: Performed By: #### P GLU #### [facility] [address] [place] [address] POC Performed on ACCU-CHEK Normal [facility] Comment on above: Performed By: #### P GLU #### [facility] [address] [place] [address] Glucose [Mass/Vol] 299 mg/dL High 60 - 115 mg/dl [place] Interpretation and review of laboratory results Abnormal [place] Performed on ACCU-CHEK [place] COVID-19, NAAon 10-19-2020 COVID-19, JOSSY Not Detected Normal Not Detect [facility] Comment on above: Result Comment: This nucleic acid amplification test was developed and its performance characteristics determined by [employer]. Nucleic acid amplification tests include PCR and [...] detected) result in this assay. Performed at: [facility] [address] [facility] [place], [place] [id number] Technical Sales Specialist: Carmela Sue MD, Phone: [phone] Performed By: #### I RCOV #### [facility] [address] [place] [address] COVID-19, NAAon 10-18-2020 Source Swab Anterior nares Normal [facility] Comment on above: Performed By: #### I RCOV #### [facility] [address] [place] [address] Basic Metabolic Panelon 10-05 Anion gap [Moles/Vol] 14 mmol/L Normal 9-15 [facility] Comment on above: Performed By: #### B MP #### [facility] [address] [place] [address] Calcium [Mass/Vol] 9.3 mg/dL Normal 8.5-9.9 [facility] Comment on above: Performed By: #### B MP #### [facility] [address] [place] [address] Chloride [Moles/Vol] 100 mmol/L Normal 95-107 [facility] Comment on above: Performed By: #### B MP #### [facility] [address] [place] [address] CO2 [Moles/Vol] 23 mmol/L Normal 20-31 [facility] Comment on above: Performed By: #### B MP #### [facility] [address] [place] [address] Creatinine [Mass/Vol] 0.57 mg/dL Low 0.70-1.20 [facility] Comment on above: Performed By: #### B MP #### [facility] [address] [place] [address] GFR/1.73 sq M predicted among blacks MDRD (S/P/Bld) [Vol rate/Area] mL/min/{1.73_m2} Normal >60 [facility] Comment on above: Result Comment: >60 mL/min/1.73m2 EGFR, calc. for ages 18 and older using the MDRD formula (not corrected for weight), is valid for stable renal function. Performed By: #### B MP #### [facility] [address] [place] [address] GFR/1.73 sq M.predicted MDRD (S/P/Bld) [Vol rate/Area] mL/min/{1.73_m2} Normal >60 [facility] Comment on above: Result Comment: >60 mL/min/1.73m2 EGFR, calc. for ages 18 and older using the MDRD formula (not corrected for weight), is valid for stable renal function. Performed By: #### B MP #### [facility] [address] [place] [address] Glucose [Mass/Vol] 275 mg/dL Critically high 70-99 M [facility] Comment on above: Performed By: #### B MP #### [facility] [address] [place] [address] Potassium [Moles/Vol] 4.2 mmol/L Normal 3.4-4.9 [facility] Comment on above: Performed By: #### B MP #### [facility] [address] [place] [address] Sodium [Moles/Vol] 137 mmol/L Normal 135-144 [facility] Comment on above: Performed By: #### B MP #### [facility] [address] [place] [address] Urea nitrogen [Mass/Vol] 11 mg/dL Normal 6-20 [facility] Comment on above: Performed By: #### B MP #### [facility] [address] [place] [address] CBC With Platelet No Differe ntialon 10-15-2020 Erythrocyte distribution width (RBC) [Ratio] 12.7 % Normal 11.5-14.5 [facility] Comment on above: Performed By: #### C BCND #### [facility] [address] [place] [address] Hematocrit (Bld) [Volume fraction] 50.9 % Normal 42.0-52.0 [facility] Comment on above: Performed By: #### C BCND #### [facility] [address] [place] [address] Hemoglobin (Bld) [Mass/Vol] 17.4 g/dL Normal 14.0-18.0 [facility] Comment on above: Performed By: #### C BCND #### [facility] [address] [place] [address] MCH (RBC) [Entitic mass] 33.8 pg Critically high 27.0-[address] [facility] Comment on above: Performed By: #### C BCND #### [facility] [address] [place] [address] MCHC (RBC) [Mass/Vol] 34.2 % Normal 33.0-37.0 [facility] Comment on above: Performed By: #### C BCND #### [facility] [address] [place] [address] MCV (RBC) [Entitic vol] 98.8 fL Normal 80.0-100.0 M [facility] Comment on above: Performed By: #### C BCND #### [facility] [address] [place] [address] Platelets (Bld) [#/Vol] 308 10*3/uL Normal 130-400 [facility] Comment on above: Performed By: #### C BCND #### [facility] [address] [place] [address] RBC (Bld) [#/Vol] 5.15 10*6/uL Normal 4.70-6.10 [facility] Comment on above: Performed By: #### C BCND #### [facility] [address] [place] [address] WBC (Bld) [#/Vol] 9.6 10*3/uL Normal 4.8-10.8 [facility] Comment on above: Performed By: #### C BCND #### [facility] [address] [place] [address] Partial Thromboplastin Timeo n 10-15-2020 aPTT Coag (Bld) [Time] 33.9 s Normal 24.4-36.8 [facility] Comment on above: Result Comment: Effe ctive 08/08/2020: Heparin Therapeutic Range: 64.0 ? 98.0 seconds. Performed By: #### P TT #### [facility] [address] [place] [address] Prothrombin Timeon INR Coag (PPP) [Relative time] 0.9 {INR} Normal [facility] Comment on above: Performed By: #### P T #### [facility] [address] [place] [address] PT Coag (PPP) [Time] 12.6 s Normal 12.3-14.9 [facility] Comment on above: Performed By: #### P T #### [facility] [address] [place] [address] MRI Spine Lumbar w/ + w/o Co ntraston 06-15-2018 MRI Spine Lumbar w/ + w/o Contrast Patient Name: ANMOL REYNOLDS MRI Exam Date/Time 06/14/2018 15:59:06 EDT Exam MRI Spine Lumbar w/ + w/o Contrast Ordering Physician [id number] MELITON MCWILLIAMS Accession Number [id number] CPT4 Codes 68744 () Reason For Exam lt leg radiculopathy [...] Transcribed Date and Time: 06/15/2018 8:33 Normal [facility] Glucose, WB POCon 08-05-2017 Glucose mass conc 179 mg/dL High 70-100 [facility] Comment on above: Performed By: #### 1 [id number] ####[facility] [address] [place] [address] Glucose mass conc 194 mg/dL High 70-100 [facility] Comment on above: Performed By: #### 1 [id number] ####[facility] [address] [place] [address] SPINE LUMBAR SINGLE VIEWon 1 10-05-2016 SPINE LUMBAR SINGLE VIEW DATE OF EXAM: N ov 2016 1:18PMCLINICAL HISTORY/ Name: GIVEN, BRIANSTUDY:SPINE LUMBAR SINGLE VIEW; 08/05/2017 1:18 pmINDICATION:intra op.COMPARISON:None.AC CESSION NUMBER(S):[id number] RDERING CLINICIAN:OPAL MONGE:Single lateral view of the lumbar spine during lumbar spine surgery. Surgical marker at L5-S1 level. Fluoroscopic time is 0.05 sec.CONCLUSION: IMPRESSION:Fluoroscop ic image of the lumbar spine during surgery. Please refer to the surgical note for further details. Normal [facility] CBC With Differentialon 07-07 Basophils Auto #/vol (Bld) 0.02 10*3/uL Normal 0.01-0.09 [facility] Comment on above: Performed By: #### 2 [id number] ####[facility] [address] [place] [address] Basophils/100 WBC Auto (Bld) 0.2 % Normal 0.0-1.3 [facility] Comment on above: Performed By: #### 2 [id number] ####[facility] [address] [place] [address] Eosinophils 0.02 10*3/uL Normal 0.01-0.46 [facility] Comment on above: Performed By: #### 2 [id number] ####[facility] [address] [place] [address] Eosinophils/100 leukocytes 0.2 % Normal 0.0-6.7 [facility] Comment on above: Performed By: #### 2 975041 ####[facility] [address] [place] [address] Erythrocyte distribution width Auto Ratio (RBC) 12.5 % Normal 12.0-15.4 [facility] Comment on above: Performed By: #### 2 407500 ####[facility] [address] [place] [address] Erythrocytes (RBC) 0.00 10*3/uL Normal [facility] Comment on above: Performed By: #### 2 308392 ####[facility] [address] [place] [address] Erythrocytes (RBC) 5.10 10*6/uL Normal 4.08-6.37 [facility] Comment on above: Performed By: #### 2 [id number] ####[facility] [address] [place] [address] Erythrocytes (RBC) 0.0 /100{WBCs} Normal [facility] Comment on above: Performed By: #### 2 [id number] ####[facility] [address] [place] [address] Hematocrit (HCT) 49.7 % Normal 38.4-54.9 [facility] Comment on above: Performed By: #### 2 [id number] ####[facility] [address] [place] [address] Hemoglobin mass conc (Bld) 17.2 g/dL Normal 12.8-17.7 [facility] Comment on above: Performed By: #### 2 374321 ####[facility] [address] [place] [address] Imm Grans Absolute 0.03 10*3/uL Normal 0.00-0.21 [facility] Comment on above: Performed By: #### 2 986960 ####[facility] [address] [place] [address] Immature granulocytes #/vol (Bld) 0.3 % Normal [facility] Comment on above: Performed By: #### 2 858549 ####[facility] [address] [place] [address] Lymphocytes 1.28 10*3/uL Normal 0.40-2.84 [facility] Comment on above: Performed By: #### 2 985416 ####[address] [address] Lymphocytes/100 leukocytes 11.9 % Normal 9.4-41.1 [facility] Comment on above: Performed By: #### 2 010236 ####[address] [address] MCH 33.7 pg High 27.5-32.9 [facility] Comment on above: Performed By: #### 2 363970 ####[facility] [address] [place] [address] MCHC mass conc (RBC) 34.6 g/dL Normal 30.5-35.4 [facility] Comment on above: Performed By: #### 2 420223 ####[facility] [address] [place] [address] MCV 97.5 fL Normal 83.3-98.2 [facility] Comment on above: Performed By: #### 2 563746 ####[facility] [address] [place] [address] Monocytes 0.85 10*3/uL Normal 0.25-1.33 [facility] Comment on above: Performed By: #### 2 052462 ####[facility] [address] [place] [address] Monocytes/100 leukocytes 7.9 % Normal 3.0-16.2 [facility] Comment on above: Performed By: #### 2 [id number] ####[facility] [address] [facility] [address] Neutrophils 8.54 10*3/uL High 2.22-7.53 [facility] Comment on above: Performed By: #### 2 058919 ####[facility] [address] [place] [address] Neutrophils/100 leukocytes 79.5 % High 46.2-79.1 [facility] Comment on above: Performed By: #### 2 400745 ####[facility] [address] [facility] [address] Platelet mean volume (PMV) 10.4 fL Normal 9.9-12.1 [facility] Comment on above: Performed By: #### 2 029039 ####[facility] [address] [facility] [address] Platelets 334 10*3/uL Normal 155-404 [facility] Comment on above: Performed By: #### 2 401531 ####[facility] [address] [place] [address] RDW SD 45.3 fL Normal 39.3-48.6 [facility] Comment on above: Performed By: #### 2 441387 ####[facility] [address] [facility] [address] WBC (Leukocytes) 10.7 10*3/uL Normal 4.2-11.0 [facility] Comment on above: Performed By: #### 2 357882 ####[facility] [address] [facility] [address] CHEST 2 VIEWS PA AND LATon 1 CHEST 2 VIEWS PA AND LAT DATE OF EXAM: O ct 2016 8:43AMCLINICAL HISTORY/ Name: GIVEN, BRIANSTUDY:CHEST 2 VIEWS PA AND LAT; 08/03/2017 8:43 amINDICATION:preop.CO MPARISON:None.ACCESSI ON NUMBER(S):[id number] RDERING CLINICIAN:OPAL VIGILFINDINGS:There is no definite acute infiltrate. The costophrenic angles are not blunted. There is no pneumothorax. The heart size and mediastinal width are within gross limits of normal. No prior chest radiograph is available for comparison.CONCLUSION : IMPRESSION:No definite acute pulmonary findings Normal [facility] Comprehensive Metabolic Pane antonio 08-03-2017 Alanine aminotransferase (ALT) 18 U/L Normal -52 [facility] Comment on above: Performed By: #### 1 [id number] ####[facility] [address] [place] [address] Albumin 4.9 g/dL Normal 3.4-5.0 [facility] Comment on above: Performed By: #### 1 853767 ####[facility] [address] [place] [address] Albumin/Globulin Ratio 2.0 {ratio} Normal 0.9-2.4 [facility] Comment on above: Performed By: #### 1 [id number] ####[facility] [address] [place] [address] Alkaline phosphatase (ALP) 119 U/L High 45-117 [facility] Comment on above: Performed By: #### 1 451051 ####[facility] [address] [place] [address] Anion gap 15 mmol/L Normal 10-20 [facility] Comment on above: Performed By: #### 1 535718 ####[facility] [address] [place] [address] Aspartate aminotransferase (AST) 15 U/L Normal 13-39 [facility] Comment on above: Performed By: #### 1 311819 ####[facility] [address] [place] [address] Bicarbonate (HCO3) 22 mmol/L Normal 21-32 [facility] Comment on above: Performed By: #### 1 321555 ####[facility] [address] [place] [address] Bilirubin (total) 1.0 mg/dL Normal 0.0-1.2 [facility] Comment on above: Performed By: #### 1 111652 ####[facility] [address] [facility] [place] [address] BUN/Creatinine Ratio 19 mg/mg Normal 5-25 [facility] Comment on above: Performed By: #### 1 659191 ####[facility] [address] [facility] [address] Calcium 10.0 mg/dL Normal 8.6-10.3 [facility] Comment on above: Performed By: #### 1 087016 ####[facility] [address] [facility] [address] Chloride 103 mmol/L Normal 98-107 [facility] Comment on above: Performed By: #### 1 115717 ####[facility] [address] [facility] [address] Creatinine 0.64 mg/dL Normal 0.50-1.30 [facility] Comment on above: Performed By: #### 1 694463 ####[facility] [address] [facility] [address] eGFR (MDRD) mL/min/{1.73_m2} Normal [facility] Comment on above: Result Comment: Inte rpretation for Chronic Kidney Disease:Stages 1&2 >60 Healthy or potential kidney damage.Mild decrease of GFR.Stage 3 30-59 Moderate decrease of GFR.Stage 4 15-29 Severe decrease of GFR.Stage 5 <15 Kidney failure or on dialysis. Performed By: #### 1 655387 ####[facility] [address] [facility] [address] Glucose mass conc 233 mg/dL High 70-100 [facility] Comment on above: Performed By: #### 1 621442 ####[facility] [address] [facility] [address] Potassium molar conc 3.8 mmol/L Normal 3.5-5.1 [facility] Comment on above: Performed By: #### 1 283766 ####[facility] [address] [facility] [address] Protein 7.4 g/dL Normal 6.4-8.2 [facility] Comment on above: Performed By: #### 1 177206 ####[facility] [address] [facility] [address] Sodium 136 mmol/L Normal 136-145 [facility] Comment on above: Performed By: #### 1 037078 ####[facility] [address] [place] [address] Urea nitrogen 12 mg/dL Normal 6-23 [facility] Comment on above: Performed By: #### 1 894370 ####[facility] [address] [place] [address] ESR, Westergrenon 08-03-2017 ESR, Westergren 2 mm/h Normal 0-15 [facility] Comment on above: Performed By: #### 2 734008 ####[facility] [address] [place] [address] Prothrombin Time (PT) & Part ial Thromboplastin (PTT)on 08-03-2017 aPTT 29.2 s Normal 22.1-35.3 [facility] Comment on above: Result Comment: Hepa rin Therapeutic Range: 71 - 97 sec Performed By: #### P TPTT ####[facility] [address] [place] [address] INR Coag RelTime (PPP) 0.84 {INR} Low 0.85-1.16 [facility] Comment on above: Result Comment: Coum john Therapy:1.5 - 2.0 Low Intensity Therapy2.0 - 3.0 Moderate Intensity Therapy2.5 - 3.5 High (1) Intensity Therapy3.0 - 4.0 High (2) Intensity Therapy Performed By: #### P TPTT ####[facility] [address] [place] [address] Prothrombin time (PT) Coag time (PPP) 11.4 s Normal 11.3-14.5 [facility] Comment on above: Performed By: #### P TPTT ####[facility] [address] [place] [address] Urinalysison 08-03-2017 Ascorbic Acid Negative Normal Negative [facility] Comment on above: Performed By: #### 1 713151 ####[facility] [address] [place] [address] Automated Urine Microscopy Not indicated Normal [facility] Comment on above: Performed By: #### 1 483481 ####[facility] [address] [place] [address] Bilirubin Ql (U) Negative Normal Negative [facility] Comment on above: Performed By: #### 1 336371 ####[facility] [address] [place] [address] Blood Negative Normal Negative [facility] Comment on above: Performed By: #### 1 616547 ####[facility] [address] [place] [address] Glucose mass conc mg/dL Abnormal Negative [facility] Comment on above: Performed By: #### 1 023155 ####[facility] [address] [place] [address] Protein Negative Normal Negative [facility] Comment on above: Performed By: #### 1 169410 ####[facility] [address] [place] [address] Urine, appearance Clear Normal Clear [facility] Comment on above: Performed By: #### 1 517114 ####[facility] [address] [place] [address] Urine, color Yellow Normal EM Healthcare Comment on above: Performed By: #### [id number] ####[facility] [id number] [place] [address] Urine, ketones presence Negative Normal Negative E Healthcare Comment on above: Performed By: #### [id number] ####[facility] [id number] [place] [address] Urine, nitrite presence Negative Normal Negative E Healthcare Comment on above: Performed By: #### [id number] ####[facility] [id number] [place] [address] Urine, pH 5.0 [pH] Normal 5.0-9.0 [facility] Comment on above: Performed By: #### [id number] ####[facility] [id number] [place] [address] Urine, specific gravity 1.033 Normal 1.003-1.035 [facility] Comment on above: Performed By: #### 1 [id number] ####[facility] [id number] [facility] [address] Urine, urobilinogen <2.0 Normal Negative [facility] Comment on above: Performed By: #### 1 [id number] ####[facility] [address] [place] [address] WBC (Leukocytes) Negative Normal Negative [facility] Comment on above: Performed By: #### 1 [id number] ####[facility] [id number] [place] [address] DX LUMBOSACRAL SPINE, BENDIN G VIEWS ONLY, 2 OR 3 VIEWSon 05-27-2017 DX LUMBOSACRAL SPINE, BENDING VIEWS ONLY, 2 OR 3 VIEWS Performed at [facility] APPROVED BY: Robert Velarde MD [...] MRI LUMBAR SPINE W/O CONTRAST Performed at [facility] APPROVED BY: Jose Schumacher MD [...] at the L4-L5 and L5-S1 levels. Normal [facility] Vital Signs Date Time Vital Sign Value Performing Clinician Facility 06-02-2025 11:01-0400 Body temperature 97.59 [degF] Savage Castillo MD Work Phone: [facility] [employer] 06-02-2025 11:01-0400 Diastolic blood pressure 77 mm[Hg] Savage Castillo MD Work Phone: [facility] [employer] 06-02-2025 11:01-0400 Heart rate 78 /min Savage Castillo MD Work Phone: [facility] [employer] 06-02-2025 11:01-0400 SaO2% (BldA) [Mass fraction] 99 % Savage Castillo MD Work Phone: [facility] [employer] 06-02-2025 11:01-0400 Systolic blood pressure 130 mm[Hg] Savage Castillo MD Work Phone: [facility] [employer] 04-28-2025 20:11-0400 Body temperature 97.3 [degF] Brad Campos MD Work Phone: [facility] [employer] 04-28-2025 20:11-0400 Diastolic blood pressure 64 mm[Hg] Brad Campos MD Work Phone: [facility] [employer] 04-28-2025 20:11-0400 Heart rate 76 /min Brad Campos MD Work Phone: [employer] 04-28-2025 20:11-0400 Respiratory rate 16 /min Brad Campos MD Work Phone: [facility] [employer] 04-28-2025 20:11-0400 SaO2% (BldA) [Mass fraction] 92 % Brad Campos MD Work Phone: [facility] [employer] 04-28-2025 20:11-0400 Systolic blood pressure 106 mm[Hg] Brad Campos MD Work Phone: [employer] 04-24-2025 13:34-0400 Body height 190.5 cm Brad Campos MD Work Phone: [facility] [employer] 04-22-2025 03:00-0400 Body mass index (BMI) [Ratio] 24.42 kg/m2 Brad Campos MD Work Phone: [facility] [employer] 04-22-2025 03:00-0400 Body weight 88.63 kg Brad Campos MD Work Phone: [facility] 03-14-2025 13:56-0400 Body temperature 98.01 [degF] Milad Goodson MD Work Phone: [facility] 03-14-2025 13:56-0400 Diastolic blood pressure 70 mm[Hg] Milad Goodson MD Work Phone: [facility] 03-14-2025 13:56-0400 Heart rate 84 /min Milad Goodson MD Work Phone: [facility] 03-14-2025 13:56-0400 Respiratory rate 20 /min Milad Goodson MD Work Phone: [facility] 03-14-2025 13:56-0400 SaO2% (BldA) [Mass fraction] 97 % Milad Goodson MD Work Phone: [facility] 03-14-2025 13:56-0400 Systolic blood pressure 107 mm[Hg] Milad Goodson MD Work Phone: [facility] 03-07-2025 08:54-0400 Diastolic blood pressure 52 mm[Hg] Yoana Bren QUALITY AUDIT REPRESENTATIVE - DEMURRAGE AGENT Work Phone: [facility] 03-07-2025 08:54-0400 Heart rate 68 /min Yoana Bren QUALITY AUDIT REPRESENTATIVE - DEMURRAGE AGENT Work Phone: [facility] 03-07-2025 08:54-0400 Systolic blood pressure 107 mm[Hg] Yoana Bren QUALITY AUDIT REPRESENTATIVE - DEMURRAGE AGENT Work Phone: [facility] 01-31-2025 13:27-0400 Body temperature 98.6 [degF] Milad Goodson MD Work Phone: [facility] 01-31-2025 13:27-0400 Diastolic blood pressure 90 mm[Hg] Milad Goodson MD Work Phone: [facility] 01-31-2025 13:27-0400 Heart rate 80 /min Milad Goodson MD Work Phone: [facility] 01-31-2025 13:27-0400 Respiratory rate 18 /min Milad Goodson MD Work Phone: [facility] 01-31-2025 13:27-0400 SaO2% (BldA) [Mass fraction] 95 % Milad Goodson MD Work Phone: [facility] 01-31-2025 13:27-0400 Systolic blood pressure 136 mm[Hg] Milad Godoson MD Work Phone: [facility] 06-13-2024 10:56-0400 Diastolic blood pressure 72 mm[Hg] [facility] 06-13-2024 10:56-0400 Heart rate 85 /min [facility] 06-13-2024 10:56-0400 Respiratory rate 18 /min [employer] 06-13-2024 10:56-0400 SaO2% (BldA) [Mass fraction] 98 % [employer] 06-13-2024 10:56-0400 Systolic blood pressure 114 mm[Hg] [employer] 05-22-2024 08:09-0400 Body temperature 96.8 [degF] Shwrümel DO Work Phone: [employer] 05-22-2024 08:09-0400 Diastolic blood pressure 76 mm[Hg] [employer] Guerrero DO Work Phone: [employer] 05-22-2024 08:09-0400 Heart rate 70 /min Shwrümel DO Work Phone: [employer] 05-22-2024 08:09-0400 Respiratory rate 16 /min Shwr[employer]mel DO Work Phone: [employer] 05-22-2024 08:09-0400 SaO2% (BldA) [Mass fraction] 99 % Shwrümel DO Work Phone: [employer] 05-22-2024 08:09-0400 Systolic blood pressure 128 mm[Hg] Shwrümel DO Work Phone: [employer] 05-19-2024 13:00-0400 Body mass index (BMI) [Ratio] 26.62 kg/m2 [employer] Guerrero DO Work Phone: [facility] [employer] 05-19-2024 13:00-0400 Body weight 96.62 kg Rodney Guerrero DO Work Phone: [facility] [employer] 05-18-2024 01:26-0400 Body height 190.5 cm Rodney Guerrero DO Work Phone: [facility] [employer] 05-06-2024 17:08-0400 Body temperature 98.01 [degF] Dashawn Grimm MD Work Phone: [employer] 05-06-2024 17:08-0400 Diastolic blood pressure 67 mm[Hg] Dashawn Grimm MD Work Phone: [employer] 05-06-2024 17:08-0400 Heart rate 82 /min Dashawn Grimm MD Work Phone: [employer] 05-06-2024 17:08-0400 Respiratory rate 16 /min Dashawn Grimm MD Work Phone: [employer] 05-06-2024 17:08-0400 SaO2% (BldA) [Mass fraction] 91 % Dashawn Grimm MD Work Phone: [employer] 05-06-2024 17:08-0400 Systolic blood pressure 114 mm[Hg] Dashawn Grimm MD Work Phone: [employer] 05-05-2024 18:30-0400 Body height 190.5 cm Dashawn Grimm MD Work Phone: [employer] 05-05-2024 18:30-0400 Body mass index (BMI) [Ratio] 26.62 kg/m2 Dashawn Grimm MD Work Phone: [employer] 05-05-2024 18:30-0400 Body weight 96.62 kg Dashawn Grimm MD Work Phone: [facility] [employer] 04-20-2024 11:39-0400 Body temperature 97.81 [degF] Ene Dickens MD Work Phone: [facility] [employer] 04-20-2024 11:39-0400 Diastolic blood pressure 81 mm[Hg] Ene Dickens MD Work Phone: [facility] [employer] 04-20-2024 11:39-0400 Heart rate 84 /min Ene Dickens MD Work Phone: [facility] [employer] 04-20-2024 11:39-0400 SaO2% (BldA) [Mass fraction] 97 % Ene Dickens MD Work Phone: [facility] [employer] 04-20-2024 11:39-0400 Systolic blood pressure 135 mm[Hg] Ene Dickens MD Work Phone: [facility] [employer] 04-20-2024 09:55-0400 Respiratory rate 18 /min Ene Dickens MD Work Phone: [facility] [employer] 04-19-2024 05:47-0400 Body mass index (BMI) [Ratio] 26.62 kg/m2 Ene Dickens MD Work Phone: [facility] [employer] 04-19-2024 05:47-0400 Body weight 96.6 kg Ene Dickens MD Work Phone: [facility] [employer] 04-17-2024 00:02-0400 Body height 190.5 cm Ene Dickens MD Work Phone: [facility] [employer] 01-29-2024 15:58-0400 Body height 190.5 cm Carlos Gillette MD Work Phone: [facility] [employer] 01-29-2024 15:58-0400 Body mass index (BMI) [Ratio] 22.5 kg/m2 Carlos Gillette MD Work Phone: [facility] [employer] 01-29-2024 15:58-0400 Body weight 81.65 kg Carlos Gillette MD Work Phone: [facility] [employer] 12-29-2023 14:56-0400 Body height 190.5 cm Carlos Gillette MD Work Phone: [facility] [employer] 12-29-2023 14:56-0400 Body mass index (BMI) [Ratio] 22.87 kg/m2 Carlos Gillette MD Work Phone: [employer] 12-29-2023 14:56-0400 Body weight 83.01 kg Carlos Gillette MD Work Phone: [employer] 05-23-2023 12:06-0400 Diastolic blood pressure 80 mm[Hg] Colt Klein [employer] Work Phone: [employer] 05-23-2023 12:06-0400 Heart rate 80 /min Colt Klein [employer] Work Phone: [employer] 05-23-2023 12:06-0400 Respiratory rate 18 /min Colt Klein [employer] Work Phone: [employer] 05-23-2023 12:06-0400 SaO2% (BldA) [Mass fraction] 98 % Colt Klein [employer] Work Phone: [employer] 05-23-2023 12:06-0400 Systolic blood pressure 110 mm[Hg] Colt Klein [employer] Work Phone: [employer] 05-23-2023 07:54-0400 Body height 190.5 cm Colt Klein [employer] Phone: [employer] 05-23-2023 07:54-0400 Body mass index (BMI) [Ratio] 22.5 kg/m2 Colt Klein [employer] Phone: [employer] 05-23-2023 07:54-0400 Body temperature 97.9 [degF] Colt Klein [employer] Phone: [employer] 05-23-2023 07:54-0400 Body weight 81.65 kg Colt Klein [employer] [employer] Phone: [employer] 10-25-2020 00:47-0500 Body Temperature 97.7 [degF] [facility], 10-25-2020 00:47-0500 BP Diastolic 59 mm[Hg] [facility] [place] 10-25-2020 00:47-0500 BP Systolic 100 mm[Hg] [facility] [place] 10-25-2020 00:47-0500 Pulse (Heart Rate) 80 /min [employer] [place], [place] 10-25-2020 00:47-0500 Pulse Oximetry 97 % Opal Vigil [place] , [place] 10-25-2020 00:47-0500 Respiratory Rate 16 /min [facility], [place] 10-24-2020 08:01-0500 BMI (Body Mass Index) 25.68 kg/m2 [place]al [place] 10-24-2020 08:01-0500 Body weight 90.72 kg Opal Vigil [place], [place] 10-24-2020 08:01-0500 Height 188 cm Opal [place]anova[place], [place] Encounters Encounter Date Encounter Type Care Provider Facility Start: 08-05-2025 End: 08-05-2025 [facility] Start: 07-31-2025 ambulatory Ambrosio Monroy Facility :[facility] Start: 07-17-2025 ambulatory Ambrosio Monroy Facility :[facility] Start: 06-02-2025 End: 06-02-2025 Office outpatient visit 25 minutes Savage Castillo MD Work Phone: [facility] Infectious Disease - [place] Comment on above: Pressure injury of c occygeal region, stage 3 (HCC) (Primary Dx); Other acute osteomyelitis, other site (HCC); MRSA (methicillin resistant Staphylococcus aureus) infection; Encounter for long-term (current) use of antibiotics; Paraplegia (HCC) Start: 06-02-2025 End: 06-02-2025 ambulatory SAVAGE CASTILLO [facility] Start: 05-29-2025 End: 05-29-[address] Ambrosio Monroy DO Work Phone: -[employer] Start: 05-29-2025 End: 05-29-2025 Departed Referred Tab Dupont -[facility] [employer] [facility] Start: 05-29-2025 End: 05-29-2025 ambulatory Tab MURO Facility:[facility] Start: 05-25-2025 End: 05-25-[address] Ambrosio M Esterle DO Work Phone: -[employer] [facility] Start: 05-25-2025 End: 05-25-2025 Departed Referred Tab Kiah Fre[employer]uary [employer] Start: 05-25-2025 End: 05-25-2025 ambulatory Tab Patriciajoshua MURO Facility:[facility] Start: 05-24-2025 End: 05-24-2025 Telephone encounter Cheryl Pimentel [employer] [facility] Infectious Disease [facility] Comment on above: Labs Only (Missed la b notification ) Start: 05-22-2025 Registered Referred Tab Kiah [facility] Start: 05-22-2025 End: 05-22-2025 ambulatory Ambrosio M Esterle Facility:[facility] Start: 05-15-2025 ambulatory Ambrosio M Esterle Facility :[facility] Start: 05-15-2025 Registered Referred Tab Kiah Revelation [facility] Start: 05-11-2025 ambulatory Ambrosio M Esterle Facility :[facility] Start: 05-11-2025 Registered Referred Tab Kiah [facility] Start: 05-09-2025 ambulatory Ambrosio M Esterle Facility :[facility] Start: 05-09-2025 Registered Referred Tab Kiah Revelation [facility] Start: 05-03-2025 Registered Referred Tab Kiah - [employer] Start: 05-03-2025 End: 05-03-2025 ambulatory Ambrosio M Esterle Facility:[facility] Start: 05-01-2025 ambulatory Ambrosio M Esterle Facility :[facility] Start: 05-01-2025 Registered Referred Tab Kiah Revelation [facility] Start: 04-21-2025 End: 04-28-2025 Evaluation and management of inpatient Brad Campos MD Work Phone: [facility] Comment on above: Other acute osteomye litis, other site (HCC) (Primary Dx); Pressure injury of coccygeal region, stage 3 (HCC); Lumbar stenosis with neurogenic claudication; Osteoarthritis, unspecified osteoarthritis type, unspecified site; Other intervertebral disc displacement, lumbar region Start: 04-18-2025 Registered Referred Tab Dupont [employer] Start: 04-18-2025 End: 04-18-2025 ambulatory Ambrosio Monroy Facility:[facility] Start: 04-16-2025 Registered Referred Tab Adrianneemmanuel [employer] [employer] Start: 04-16-2025 End: 04-16-2025 ambulatory Ambrosio Monroy Facility:[facility] Start: 03-24-2025 End: 03-24-2025 Telephone encounter Anmol Herbert MD Work Phone: Urology Start: 03-20-2025 End: 03-20-2025 ambulatory ANMOL HERBERT Facility:[facility] Start: 03-14-2025 End: 03-14-2025 Patient encounter procedure Milad Goodson MD Work Phone: Plastic Surgery Comment on above: Chronic osteomyeliti s (HCC) (Primary Dx); Severe protein-calorie malnutrition (HCC); Ureteral calculi; Complicated UTI (urinary tract infection); Neurogenic bladder; Type 2 diabetes mellitus with hyperglycemia, with long-term current use of insulin ([facility]) Start: 03-14-2025 End: 03-14-2025 ambulatory MILAD GOODSON Facility:[facility] Start: 03-07-2025 End: 03-07-2025 Telephone encounter Yoana Sanchez CNP [facility] Comment on above: Other Start: 03-07-2025 End: 03-07-2025 Office outpatient visit 25 minutes Yoana Sanchez CNP Work Phone: [facility] Comment on above: Ureteral stent prese nt (Primary Dx); Kidney stone; Hydronephrosis, unspecified hydronephrosis type Start: 03-07-2025 End: 03-07-2025 ambulatory YOANA SOLITARIO [facility] Start: 03-01-2025 End: 03-01-[address] Ambrosio Monroy DO Work Phone: [facility] Work Phone: Start: 03-01-2025 End: 03-01-2025 Departed Referred Tab SULLIVAN Start: 03-01-2025 Registered Referred Tab [place] Start: 03-01-2025 End: 03-01-2025 ambulatory Ambrosio Monroy Facility:[facility] Start: 02-19-2025 End: 03-08-2025 Telephone encounter Anmol Herbert MD Work Phone: [facility] Comment on above: Hospital F/U Start: 02-16-2025 End: 02-22-2025 Evaluation and management of inpatient HOWARD GAMA Facility:[facility] Start: 02-15-2025 End: 02-15-[address] Ambrosio Monroy DO Work Phone: [facility] Work Phone: Start: 02-15-2025 End: 02-15-2025 Departed Referred Tab SULLIVAN Start: 02-15-2025 End: 02-15-2025 ambulatory Ambrosio Monroy Facility:[facility] Start: 01-31-2025 End: 01-31-2025 Patient encounter [...] Santana catheter Start: 01-31-2025 End: 01-31-2025 ambulatory IMLAD GOODSON Facility:[facility] Start: 01-09-2025 End: 01-09-2025 Departed Referred Tab [place]AN Start: 01-09-2025 End: 01-09-2025 ambulatory Ambrosio Monroy Facility:[facility] Start: 01-04-2025 ambulatory KRISTINE Mendoza ity:[facility] Start: 01-04-2025 End: 01-04-2025 Subsequent hospital visit by physician [facility] (1.5t) Radiology Start: 12-07-2024 End: 12-07-[address] Ambrosio Monroy DO Work Phone: [facility] Work Phone: Start: 12-07-2024 End: 12-07-2024 Departed Referred Tab Dupont [employer] [facility] Start: 12-07-2024 [facility] Start: 12-07-2024 End: 12-07-2024 ambulatory Ambrosio Monroy Facility:[facility] Start: 11-30-2024 End: 11-30-[address] Ambrosio Monroy DO Work Phone: [facility] Work Phone: Start: 11-30-2024 End: 11-30-2024 Departed Referred Tab Dupont [facility] [place] [facility] Start: 11-30-2024 Registered [facility] Start: 11-29-2024 End: 11-30-[address] Ambrosio Monroy DO Work Phone: [facility] Work Phone: Start: 11-29-2024 End: 11-29-2024 Departed Referred Daisy Costello MD -[employer] Start: 11-29-2024 End: 11-29-2024 ambulatory Ambrosio Monroy Facility:[facility] Start: 11-08-2024 End: 11-08-2024 Office outpatient visit 25 minutes Faisal Simeon DO Work Phone: [facility] [place] [facility] Comment on above: Paraplegia (HCC) (Pr imary Dx); Neurogenic bladder; Gross hematuria; Neuropathic pain; Pressure injury of skin, unspecified injury stage, unspecified location Start: 11-08-2024 End: 11-08-2024 ambulatory FAISAL SIMEON Facility:[facility] Start: 10-25-2024 End: 11-20-2024 Telephone encounter Carlos Gillette MD Work Phone: [facility] Comment on above: Appointment Start: 10-11-2024 End: 01-10-2025 Transcribe Fanny Howell APRN - SHARIFA Work Phone: [facility] Central Scheduling Comment on above: Pressure ulcer of sa cral region, unspecified stage (Primary Dx) Start: 10-10-2024 End: 10-10-2024 Departed Referred Tab [place] Start: 10-10-2024 End: 10-10-2024 ambulatory Ambrosio Jamie Esterle Facility:[facility] Start: 10-03-2024 End: 10-03-2024 Departed Referred Tab [place] Start: 10-03-2024 End: 10-03-2024 ambulatory Ambrosio M Erinle Facility:[facility] Start: 09-30-2024 End: 09-30-2024 Office outpatient visit 25 minutes Faisal Simeon DO Work Phone: [facility] [place] [facility] Comment on above: Neurogenic bladder ( Primary Dx); Paraplegia (HCC); Urinary retention; Gross hematuria Start: 09-30-2024 ambulatory FAISAL SIMEON Facility:[facility] Start: 09-29-2024 End: 09-29-2024 Departed Referred Tab SanchezNilandcyndi [employer] Start: 09-29-2024 End: 09-29-2024 ambulatory Ambrosio M Esterle Facility:[facility] Start: 09-20-2024 End: 09-20-2024 Departed Referred Tab SanchezNiland Adeliaasa [place] Start: 09-20-2024 End: 09-20-2024 ambulatory Ambrosio M Esterle Facility:[facility] Start: 08-22-2024 End: 08-22-2024 Office outpatient new 45 minutes Giuliano Shultz DO Work Phone: [facility] Rheumatology Comment on above: Osteoporosis, unspec ified osteoporosis type, unspecified pathological fracture presence (Primary Dx) Start: 08-22-2024 End: 08-22-2024 ambulatory UNKNOWN PROVIDER Facility:[facility] Start: 08-12-2024 End: 08-12-2024 Telephone encounter Angelica Anne RN [facility] Rheumatology (Arthritis) Start: 08-01-2024 End: 08-01-2024 Office outpatient visit 25 minutes Sci Fellow Ivana [facility] Comment on above: Paraplegia (HCC) (Pr imary Dx); Neuropathic pain; Neurogenic bowel; Reflex neurogenic bladder Start: 08-01-2024 End: 08-01-2024 ambulatory UNKNOWN PROVIDER Facility:[facility] Start: 07-27-2024 End: 07-27-2024 Telephone encounter Angelica Anne RN [facility] Rheumatology (Arthritis) Start: 07-13-2024 End: 07-13-2024 Telephone encounter Angelica Anne RN [facility] Rheumatology (Arthritis) Start: 07-10-2024 End: 07-10-2024 ambulatory UNKNOWN PROVIDER Facility:[facility] Start: 07-10-2024 End: 07-10-2024 Subsequent hospital visit by physician Mh Ip/Op Mri 2 [facility] Radiology Comment on above: Sacral insufficiency fracture, initial encounter Start: 07-01-2024 End: 07-01-2024 ambulatory OTIS MEJIA Facility:[facility] Start: 06-15-2024 End: 06-15-2024 Telephone encounter Carlos Gillette MD Work Phone: [facility] Comment on above: Reschedule Start: 06-14-2024 End: 06-14-2024 Telephone encounter Vladimir As[facility] Start: 06-13-2024 End: 06-13-2024 Office outpatient new 60 minutes Sci Fellow Ivana [facility] PM[facility]R Comment on above: Paraplegia (HCC) (Pr imary Dx); Reflex neurogenic bladder; Neuropathic pain; Neurogenic bowel Start: 06-13-2024 End: 06-13-2024 Office outpatient visit 25 minutes Sci Fellow Ivana [facility]R Comment on above: Paraplegia (HCC) (Pr imary Dx); Reflex neurogenic bladder; Neuropathic pain; Neurogenic bowel; Urinary retention Start: 06-13-2024 End: 06-16-2024 ambulatory UNKNOWN PROVIDER Facility:[facility] Start: 05-17-2024 End: 05-22-2024 Evaluation and management of inpatient Rodney Guerrero DO Work Phone: [facility] DEMI [facility] Comment on above: Positive blood cultu res (Primary Dx); Lumbar stenosis with neurogenic claudication; Osteoarthritis, unspecified osteoarthritis type, unspecified site; Other intervertebral disc displacement, lumbar region; Pressure injury of coccygeal region, stage 3 (HCC) Start: 05-13-2024 End: 05-13-2024 Telephone encounter Sarita Benoit LPN [facility] Infectious Disease Comment on above: Labs Only Start: 05-11-2024 End: 05-15-2024 Office outpatient new 45 minutes Otis Mejia MD Work Phone: [facility] Orthopedic Spine Comment on above: Sacral insufficiency fracture, initial encounter (Primary Dx); Failed back surgical syndrome Start: 05-11-2024 End: 05-11-2024 Subsequent hospital visit by physician Op Xray 2 [facility] Radiology Comment on above: Sacral insufficiency fracture, initial encounter Start: 05-11-2024 End: 05-15-2024 ambulatory UNKNOWN PROVIDER Facility:[facility] Start: 05-10-2024 End: 05-10-2024 Telephone encounter Delaney Nunn RN [facility] Line Comment on above: Update Start: 05-05-2024 End: 05-06-2024 Subsequent hospital visit by physician Dashawn Grimm MD Work Phone: [facility] Medical Surgical Unit MSU H5 Comment on above: Bladder calculus (Pr imary Dx); Bilateral ureteral calculi; Calculus of ureter Start: 05-04-2024 End: 05-06-2024 Telephone encounter Carlos Gillette MD Work Phone: [facility] Comment on above: Reschedule Start: 04-15-2024 End: 04-15-2024 ambulatory Joe Sanchez CNP Work Phone: [facility] Comment on above: Bilateral ureteral c alculi (Primary Dx); Bladder calculus Start: 04-15-2024 End: 04-25-2024 Telephone encounter Joe Sanchez CNP Work Phone: [facility] Comment on above: Surgery Scheduling Start: 04-14-2024 End: 04-20-2024 Evaluation and management of inpatient Ene Dickens MD Work Phone: [facility] PCU 2E Start: 04-06-2024 End: 04-28-2024 Telephone encounter Vaishali Placeway DO Work Phone: [facility] PM&R Start: 04-05-2024 End: 04-05-2024 ambulatory UNKNOWN PROVIDER Facility:[facility] Start: 04-05-2024 End: 04-05-2024 Subsequent hospital visit by physician Ip/Op Mri 1 [facility] Radiology Comment on above: Paraplegia (HCC); History of lumbar fusion Start: 02-10-2024 End: 02-11-2024 ambulatory UNKNOWN PROVIDER Facility:[facility] Start: 02-10-2024 End: 02-26-2024 Office outpatient new 45 minutes Vaishali Placeway DO Work Phone: [facility] PM&R Comment on above: Paraplegia (HCC) (Pr imary Dx); History of lumbar fusion Start: 02-10-2024 ambulatory UNKNOWN PROVIDER Facili ty:[facility] Start: 01-29-2024 End: 01-29-2024 Office outpatient visit 25 minutes Carlos Gillette MD Work Phone: [facility] Comment on above: Injury of lumbar spi nal cord, sequela (HCC) (Primary Dx); Neuropathic pain Start: 01-15-2024 Registered Referred [facility] Start: 01-07-2024 End: 01-07-2024 ambulatory [facility] Work Phone: Start: 01-07-2024 End: 01-07-2024 Departed Referred [facility] Start: 01-07-2024 Registered Referred [facility] Start: 01-04-2024 End: 01-04-2024 ambulatory [facility] Work Phone: Start: 01-04-2024 End: 01-04-2024 Departed Referred [facility] Start: 01-04-2024 Registered Referred [facility] Start: 12-31-2023 End: 12-31-2023 ambulatory [facility] Work Phone: Start: 12-31-2023 End: 12-31-2023 Departed Referred [facility] Start: 12-29-2023 End: 12-29-2023 Office outpatient new 45 minutes Carlos Gillette MD Work Phone: [facility] Comment on above: Spinal cord injury, lumbar, without spinal bone injury, sequela (HCC) (Primary Dx); Neuropathic pain Start: 12-04-2023 End: 12-04-2023 ambulatory [facility] Work Phone: Start: 12-04-2023 End: 12-04-2023 Departed Referred [facility] Start: 10-25-2023 End: 10-25-2023 Departed Referred [facility] Start: 09-04-2023 Telephone encounter Carlos israel MD Work Phone: [facility] Comment on above: Referral Start: 08-19-2023 Telephone encounter Carlos israel MD Work Phone: [facility] Comment on above: Referral (Confirm Re ceipt of Referral for NSH TEACHER Appt Scheduling) Start: 08-10-2023 Registered Referred [facility] Start: 08-07-2023 Registered Referred [facility] Start: 08-06-2023 Telephone encounter Carlos israel MD Work Phone: [facility] Comment on above: new patient appointm ent Start: 07-31-2023 End: 07-31-2023 ambulatory [facility] Work Phone: Start: 07-31-2023 End: 07-31-2023 Departed Referred [facility] Start: 06-29-2023 End: 06-29-2023 Departed [facility] Start: 06-01-2023 End: 06-01-2023 ambulatory [facility] Work Phone: Start: 06-01-2023 End: 06-01-2023 Departed [facility]erred [facility] Start: 05-23-2023 End: 05-23-2023 Emergency department patient visit Colt Klein DO Work Phone: [facility] Comment on above: Urinary tract infect ion associated with indwelling urethral catheter, initial encounter (HCC) (Primary Dx) Start: 05-04-2023 End: 05-04-2023 ambulatory [facility] Work Phone: Start: 05-04-2023 End: 05-04-2023 Departed [facility] Start: 05-04-2023 Registered Referred [facility] Start: 03-25-2023 End: 03-25-2023 ambulatory [facility] Work Phone: Start: 03-25-2023 End: 03-25-2023 Departed [facility]erred [facility] Start: 04-21-2022 ambulatory Cindi Cuellar PA-C Work Phone: [facility] [place] Start: 02-14-2022 End: 02-14-2022 Subsequent hospital visit by physician Mri 2 [facility] (I-Stat/1.5t) [facility] Comment on above: abscess Start: 06-11-2021 AUDIT Byron Whitlock DO Work Phone: [facility]Apdf[facility]awuh[facility]Tn ghanshyam FRANCISCOI Work Phone: Start: 10-24-2020 End: 10-25-2020 Patient encounter procedure OPAL VIGIL [facility] Start: 10-24-2020 End: 10-27-2020 Patient encounter procedure AMBROSIO MONROY [facility] Start: 10-24-2020 End: 10-25-2020 Subsequent hospital visit by physician Opal Vigil Work Phone: [facility] Comment on above: Muscle spasm (Primar y Dx); Diabetes mellitus without complication (HCC) Start: 06-14-2018 Patient encounter Meliton [facility] Start: 06-11-2018 End: 06-12-2018 Patient encounter JUAN MIGUEL ANN Facility:[id number] Start: 04-29-2018 Patient encounter Ambrosio Eliana [facility] Start: 08-05-2017 End: 08-06-2017 Ambulatory OPAL VIGIL Facility:[facility] Start: 08-03-2017 Ambulatory OPAL VIGIL Facility:[facility] Start: 05-27-2017 End: 05-28-2017 Ambulatory ELLIOT TORREZ Facility:[facility] Procedures Date Procedure Procedure Detail Performing Clinician Start: 07-17-2025 Urnls dip stick/tablet reagent auto microscopy Dr. Ambrosio Monroy DO Work Phone: Start: 06-02-2025 Follow-up visit Follow-up SAVAGE ANNA Start: 04-28-2025 Glucose quantitative blood xcpt reagent [...] metabolic panel calcium total Mary Alice Aguilera QUALITY AUDIT REPRESENTATIVE - DEMURRAGE AGENT Work Phone: Start: 04-26-2025 Glucose quantitative blood [...] 04-25-2025 Basic metabolic panel calcium total Kerwin Rock [place] DO Work Phone: Start: 04-24-2025 Glucose quantitative blood xcpt reagent strip Kerwin Radhames DO Work Phone: Start: 04-24-2025 Glucose quantitative blood xcpt reagent strip Kerwin [place] DO Work Phone: Start: 04-24-2025 Glucose quantitative blood xcpt reagent strip Kerwin [place] DO Work Phone: Start: 04-24-2025 End: 04-24-2025 [...] 04-24-2025 Basic metabolic panel calcium total Kerwin [place] DO Work Phone: Start: 04-24-2025 Drug screen quantitative vancomycin Alberto Boogie NSH TEACHER Work Phone: Start: 04-23-2025 Glucose quantitative blood xcpt reagent strip Kerwin [place] DO Work Phone: Start: 04-23-2025 Glucose quantitative blood xcpt reagent strip Kerwin [place] DO Work Phone: Start: 04-23-2025 Glucose quantitative blood xcpt reagent strip Kerwin [place] DO Work Phone: Start: 04-23-2025 Glucose quantitative blood xcpt reagent strip Kerwin [place] DO Work Phone: Start: 04-23-2025 Basic metabolic panel calcium total Kerwin [place] DO Work Phone: Start: 04-22-2025 Glucose quantitative blood xcpt reagent strip Kerwin Radhames DO Work Phone: Start: 04-22-2025 Glucose quantitative blood xcpt reagent strip Kerwin [place] DO Work Phone: Start: 04-22-2025 Glucose quantitative blood xcpt reagent strip Kerwin [place] DO Work Phone: Start: 04-22-2025 Glucose quantitative blood xcpt reagent strip Kerwin [place] DO Work Phone: Start: 04-22-2025 Drug screen quantitative vancomycin Alberto Boogie NSH TEACHER Work Phone: Start: 04-22-2025 Ct pelvis w/contrast [...] iso&id Chele León MD Work Phone: Start: 04-18-[address] Ambrosio Monroy DO Work Phone: Start: 04-18-2025 Urnls dip stick/tablet reagent auto microscopy Dr. Ambrosio Monroy DO Work Phone: Start: 04-16-[address] Ambrosio Franco O Work Phone: Start: 04-16-2025 End: 04-16-2025 Microbial culture, routine Dr. Ambrosio freed DO Work Phone: Start: 02-15-[address] [...] Phone: Start: 05-22-2024 Blood count complete automated Pavrin Mahajan MD Work Phone: Start: 05-22-2024 Comprehensive [...] Glucose quantitative blood xcpt reagent strip Parvin Mahjaan MD Work Phone: Start: 05-20-2024 Glucose quantitative [...] sacrum & coccyx minimum 2 views Berna CORRIGAN-Stephanie Work Phone: Start: 05-06-2024 Glucose quantitative blood [...] panel - Blood Brad Mujica APRN - DEMURRAGE AGENT Work Phone: Start: 04-15-2024 Glucose quantitative blood [...] Phone: Start: 04-15-2024 Comprehensive metabolic panel Orquidea aMrti MD Work Phone: Start: 04-15-2024 Manual Differential panel - Blood Brad Mujica QUALITY AUDIT REPRESENTATIVE - DEMURRAGE AGENT Work Phone: Start: 04-15-2024 Drug screen quantitative vancomycin Orquidea Marti MD Work Phone: Start: 04-15-2024 Culture bacterial quanttative colony count urine Brad Mujica QUALITY AUDIT REPRESENTATIVE - DEMURRAGE AGENT Work Phone: Start: 04-14-2024 End: 04-14-2024 Blood [...] panel - Serum or Plasma Joe Hammer QUALITY AUDIT REPRESENTATIVE - DEMURRAGE AGENT Work Phone: Start: 09-06-2021 Colonoscopy Faisal Simeon [...] vaccine (adult) (1 - 1-dose 75+ series) [facility] Start: 09-06-2031 Screening for malignant neoplasm of colon [facility] Start: 01-23-2027 Lipid panel Cholesterol [facility] Start: 04-27-2026 Diabetes: Estimated Glomerular Filtration Rate for [facility]ney [facility] Diabetes: Estimated Glomerular Filtration Rate for Kidney Health [facility] Start: 04-21-2026 Hemoglobin A1c measurement Diabetes: Hemoglobin A1C [facility] Start: 02-16-2026 Screening for malignant neoplasm of lung Lung Cancer Screening [facility] Start: 07-31-2025 Registered Referred Registered Referred -[employer] Start: 07-17-2025 Registered Referred Registered Referred [facility] Start: 07-17-2025 Urine culture Urine Culture [facility] Start: 06-05-2025 COVID-19 Vaccine ( season) COVID-19 Vaccine ( season) [facility] Start: 06-05-2025 Influenza vaccination [facility] Start: 06-02-2025 End: 06-02-2025 Patient encounter procedure 06/02/2025 11:00 AM EDT Office Visit [facility] [place] [address] [place] [id number] Savage Castillo MD [address] [place] [address] [facility] [place] Start: 05-22-2025 Diabetes: Estimated Glomerular Filtration Rate for Kidney Health Diabetes: Estimated Glomerular Filtration Rate for Kidney Health [facility] Start: 05-06-2025 Diabetes: Estimated Glomerular Filtration Rate for Kidney Health Diabetes: Estimated Glomerular Filtration Rate for Kidney Health [facility] Start: 04-27-2025 Diabetes: Estimated Glomerular Filtration Rate for Kidney Health Diabetes: Estimated Glomerular Filtration Rate for Kid[facility] Health [facility] Start: 04-20-2025 Diabetes: Estimated Glomerular Filtration Rate for Kidney Health Diabetes: Estimated Glomerular Filtration Rate for Kidney Health [facility] Start: 04-20-2025 [facility] Start: 04-15-2025 Diabetes: Estimated Glomerular Filtration Rate for Kidney Health Diabetes: Estimated Glomerular Filtration Rate for Kidney Health [facility] Start: 04-15-2025 Hemoglobin A1c measurement [facility] Start: 04-04-2025 Hemoglobin A1c measurement Hemoglobin A1C [facility] Start: 03-20-2025 End: 03-20-2025 Admission to same day surgery center 03/20/2025 10:00 AM EDT - 03/20/2025 11:30 AM EDT Surgery [facility] OR [address] [place] [address] Anmol Herbert MD [address] [place] [address] CYSTOSCOPY, RETROPYELOGRAM [facility] Comment on above: CYSTOSCOPY, RETROPYELOGRAM Start: 03-20-2025 End: 03-20-2025 Cysto bladder w/ureteral catheterization [facility] Start: 03-20-2025 End: 03-20-2025 Cysto w/insert ureteral stent [facility] Start: 03-20-2025 End: 03-20-2025 Cysto w/simple removal stone & stent [facility] Start: 03-20-2025 Subsequent hospital visit by physician 03/20/2025 10:00 AM EDT Hospital Encounter [facility] [address] [place] [address] Anmol Herbert MD [address] [place] [address] Other hydronephrosis [N13.39] [facility] Comment on above: Other hydronephrosis [N13.39] Start: 03-14-2025 End: 03-14-2025 Patient encounter procedure 03/14/2025 1:50 PM EDT Office Visit Plastic Surgery [address] [place] [address] Milad Goodson MD [address] [address] [place] sacrum & left ischium Plastic Surgery Comment on above: [place] sacrum & left ischium Start: 01-31-2025 End: 05-02-2025 C reactive protein [Mass/volume] in Serum or Plasma C-REACTIVE PROTEIN Lab Routine Chronic osteomyelitis (HCC) Expected: 01/31/2025, Expires: 05/02/2025 [facility] Comment on above: Expected: 01/31/2025, Expires: Start: 01-31-2025 End: 05-02-2025 Erythrocyte sedimentation rate SEDIMENTATION RATE, WESTERGREN Lab Routine Chronic osteomyelitis (HCC) Expected: 01/31/2025, Expires: 05/02/2025 [facility] Work Phone: Comment on above: Expected: 01/31/2025, Expires: Start: 01-31-2025 End: 05-02-2025 Prealbumin [Mass/volume] in Serum or Plasma PREALBUMIN Lab Routine Chronic osteomyelitis (HCC) Expected: 01/31/2025, Expires: 05/02/2025 [facility] Comment on above: Expected: 01/31/2025, Expires: Start: 11-08-2024 End: 11-08-2024 Telemedicine consultation with patient 11/08/2024 1:30 PM EST Telemedicine [facility] PM&R [address] [place] [address] Faisal Simeon DO [address] [place] [address] [facility] PM[facility]R Start: 11-05-2024 Welcome to Medicare Visit (G0402) Welcome to Medicare Visit (G0402) [facility] Start: 10-16-2024 Hemoglobin A1c measurement HbA1C [facility] Start: 10-11-2024 End: 10-11-2025 MR Pelvis WO and W contrast IV MR pelvis w and wo contrast Imaging Routine Pressure ulcer of sacral region, unspecified stage Expected: 10/11/2024, Expires: 10/11/2025 [employer] Work Phone: Comment on above: Expected: 10/11/2024, Expires: Start: 10-05-2024 Medicare Advantage Annual Wellness Visit Medicare Advantage Annual Wellness Visit [facility] [employer] Start: 09-30-2024 End: 09-30-2025 CT Abdomen and Pelvis WO contrast CT RENAL STONE Imaging Routine Gross hematuria Expected: 09/30/2024, Expires: 09/30/2025 [facility] Work Phone: Comment on above: Expected: 09/30/2024, Expires: Start: 09-30-2024 End: 09-30-2024 Patient encounter procedure 09/30/2024 1:00 PM EST Procedure Visit [facility] [address] [place] [address] Faisal Simeon DO [address] [place] [address] [facility] Start: 09-09-2024 End: 09-09-2024 Patient encounter procedure 09/09/2024 2:00 PM EST Procedure Visit [facility] PM[facility]R [address] [place] [address] Faisal Simeon DO [address] [place] [address] [facility] [place] [facility] Start: 08-22-2024 End: 08-22-2024 Telemedicine consultation with patient 08/22/2024 8:20 AM EST Telemedicine [facility] Rheumatology [address] [place] [address] Giuliano Shultz DO [address] [place] [address] [facility] Start: 2024 End: 2024 Patient encounter procedure 2024 1:30 PM EDT Office Visit [facility] Pain [facility] Health [facility] [address] [place] [phone] Carlos Gillette MD [address] [place] [address] [facility] Health [facility] Start: 08-01-2024 End: 08-01-2024 Telemedicine consultation with patient 08/01/2024 9:00 AM EDT Telemedicine [facility] PM&R [address] [place] [address] [facility] Start: 07-10-2024 End: 07-10-2024 Patient encounter procedure [facility] Start: 07-05-2024 Influenza vaccination Influenza Vaccine (#1) [facility] Start: 07-01-2024 End: 07-01-2024 Professional / ancillary services management 07/01/2024 11:00 AM EDT Ancillary Procedure [facility] [address] [place] [address] [facility] Start: 06-14-2024 End: 06-14-2024 Patient encounter procedure 06/14/2024 8:30 AM EDT Office Visit [facility] [address] [facility] [place] [phone] Carlos Gillette MD [address] [facility] [place] [address] [facility] Start: 06-13-2024 End: 06-13-2024 Patient encounter procedure 06/13/2024 11:00 AM EDT Office Visit [facility] PM[facility] [address] [place] [address] [facility] Start: 06-13-2024 End: 06-13-2024 Professional / ancillary services management 06/13/2024 9:00 AM EDT Ancillary Procedure [facility] [address] [place] [address] [facility] Start: 06-05-2024 COVID-19 Vaccine ( season) COVID-19 Vaccine ( season) [facility] Start: 06-05-2024 COVID-19 Vaccine ( season) COVID-19 Vaccine ( season) [facility] Start: 06-05-2024 Influenza vaccination [facility] Start: 06-05-2024 [facility] Start: 05-11-2024 End: 05-11-2025 DXA Skeletal system Views for bone density BD BONE DENSITY SURVEY Imaging Routine Sacral insufficiency fracture, initial encounter Expected: 05/11/2024, Expires: 05/11/2025 [facility] Work Phone: Comment on above: Expected: 05/11/2024, Expires: Start: 05-11-2024 End: 05-11-2025 MR Cervical spine WO contrast MR C-SPINE W/O Imaging Routine Sacral insufficiency fracture, initial encounter Expected: 05/11/2024, Expires: 05/11/2025 [facility] Comment on above: Expected: 05/11/2024, Expires: Start: 05-11-2024 End: 05-11-2025 MR Thoracic spine WO contrast MR T-SPINE W/O Imaging Routine Sacral insufficiency fracture, initial encounter Expected: 05/11/2024, Expires: 05/11/2025 [facility] Comment on above: Expected: 05/11/2024, Expires: Start: 05-11-2024 End: 05-11-2024 [facility] Comment on above: Sacral insufficiency fracture, initial e ncounter (Primary Dx) Start: 05-06-2024 End: 04-20-2025 Bacteria identified in Blood by Culture [facility] [employer] Work Phone: Start: 05-05-2024 End: 05-05-2024 Admission to same day surgery center 05/05/2024 12:30 PM EDT - 05/05/2024 2:30 PM EDT Surgery [facility] OR [address] [place] [address] Dashawn Grimm MD [address] [facility] [address] [place], [place] [id number] CYSTOSCOPY [37927 (CPT )] [facility] Comment on above: CYSTOSCOPY [79098 (CPT )] Start: 05-05-2024 End: 05-05-2024 ambulatory [facility] Start: 05-05-2024 End: 05-05-2024 Anesthesia consultation 05/05/2024 12:30 PM EDT Anesthesia Event [facility] [address] [place] [address] Waleska Stein, QUALITY AUDIT REPRESENTATIVE - DEMURRAGE AGENT [address] [place] [address] [facility] Start: 05-05-2024 End: 05-05-2024 Cysto w/insert ureteral stent [facility] Start: 05-05-2024 End: 05-05-2024 Cysto w/ureteroscopy w/lithotripsy [facility] Start: 05-05-2024 End: 05-05-2024 Cystourethroscopy [facility] Start: 05-05-2024 End: 05-05-2024 Litholapaxy comp/lg > 2.5 cm [facility] Start: 05-05-2024 Subsequent hospital visit by physician 05/05/2024 12:30 PM EDT Hospital Encounter [facility] [address] [place] [phone] Dashawn Grimm MD [address] [address] [facility] Start: 04-27-2024 End: 04-27-2024 Admission to establishment 04/27/2024 2:00 PM EDT Pre-Admission Testing [facility] Pre-Admit Testing [address] [place] [phone] Dashawn Grimm MD [address] [address] [facility] Pre-Admit Testing Start: 04-27-2024 End: 04-27-2024 ambulatory [facility] Pre-Admit Testin g Start: 04-21-2024 End: 04-21-2024 Patient encounter procedure 04/21/2024 8:45 AM EDT Office Visit [facility] [address] [place] [phone] Carlos Gillette MD [address] [place] [address] [facility] Start: 04-05-2024 End: 04-05-2024 Patient encounter procedure 04/05/2024 2:30 PM EDT Appointment [facility] [address] [place] [address] [facility] Start: 04-04-2024 Welcome to Medicare Visit (G0402) Welcome to Medicare Visit (G0402) [facility] Start: 03-30-2024 End: 03-30-2024 Patient encounter procedure 03/30/2024 4:00 PM EDT Office Visit [facility] [address] [facility] [place] [phone] Carlos Gillette MD [address] [place], [place] [phone] [facility] Start: 02-10-2024 End: 02-09-2025 MR Lumbar spine WO and W contrast IV MR L-SPINE W/+W/O Imaging Routine Paraplegia (HCC) History of lumbar fusion Expected: 02/10/2024, Expires: 02/09/2025 [facility] Work Phone: Comment on above: Expected: 02/10/2024, Expires: Start: 12-29-2023 End: 12-29-2023 Patient encounter procedure 12/29/2023 2:45 PM EDT Office Visit [facility] [address] [place] [phone] Carlos Gillette MD [address] [place] [address] [facility] Start: 06-05-2023 COVID-19 Vaccine ( season) COVID-19 Vaccine ( season) [facility] Start: 06-05-2023 Influenza vaccination Influenza Vaccine (#1) [facility] Start: 06-05-2023 [facility] Start: 01-23-2023 Hemoglobin A1c measurement Diabetes: Hemoglobin A1C [facility] Start: 01-23-2023 Hepatitis B surface antibody level LDL CHOLESTEROL [facility] Start: 01-23-2023 Lipid panel Lipid Panel [facility] Start: 12-27-2022 Diabetes: Urine Albumin-Creatinine Ratio for [facility]ney [facility] Diabetes: Urine Albumin-Creatinine Ratio for Kid[facility] Health [facility] Start: 07-25-2022 Hemoglobin A1c/Hemoglobin.total in Blood HBA1C [facility] Start: 06-05-2022 Influenza vaccination [facility] Start: 10-25-2021 HbA1c (Bld) [Mass fraction] A1C test (Diabetic or Prediabetic) [place], [place] Start: 10-25-2021 Hemoglobin A1c measurement Diabetes: Hemoglobin A1C [facility] Start: 2021 Hepatitis B (HBV) Vaccine (optional start 60+ years) Hepatitis B (HBV) Vaccine (optional start 60+ years) [facility] Start: 2021 Hepatitis B Vaccines (1 of 3 - Risk 3-dose series) Hepatitis B Vaccines (1 of 3 - Risk 3-dose series) [facility] Start: 2021 RSV Immunization aged 60 or older (1 - 1-dose 60+ series) RSV Immunization aged 60 or older (1 - 1-dose 60+ series) [facility] Start: 2021 RSV Immunization for Adults (1 - Risk 60-74 years 1-dose series) RSV Immunization for Adults (1 - Risk 60-74 years 1-dose series) [facility] Start: 2021 RSV Vaccine (1 - Risk 60-74 years 1-dose series) RSV Vaccine (1 - Risk 60-74 years 1-dose series) [facility] Start: 2021 RSV vaccine (optional 60+ years) RSV vaccine (optional 60+ years) [facility] Start: 2021 [facility] Start: 11-20-2020 End: 11-20-2020 Office Visit 11/20/2020 Office Visit Neurosurgery Opal Vigil MD [address] [address] [facility] Start: 11-06-2020 End: 11-06-2020 Office Visit [facility] Start: 06-05-2020 Influenza vaccination Flu vaccine (#1) [place], [place] Start: 01-05-2018 Lipid panel Lipid screen [place] Start: 2016 PROSTATE CANCER SCREENING DISCUSSION PROSTATE CANCER SCREENING DISCUSSION [facility] Start: 2016 Prostate specific antigen measurement Prostate Cancer Screening Discussion [facility] Start: 2011 Pneumococcal vaccination Pneumococcal Vaccine(s) (50+ yrs) (1 of 1 - PCV) [facility] Start: 2011 Screening for malignant neoplasm of colon Colon cancer screen colonoscopy [place] Start: 2011 Screening for malignant neoplasm of lung Lung Cancer Screening [facility] Start: 2011 Shingles (RZV) Vaccine (1 of 2) Shingles (RZV) Vaccine (1 of 2) [facility] Start: 2011 Shingles Vaccine (1 of 2) Shingles Vaccine (1 of 2) [place] Start: 2011 SHINGRIX VACCINE (1 of 2) SHINGRIX VACCINE (1 of 2) [facility] Start: 2011 Zoster Vaccines (1 of 2) Zoster Vaccines (1 of 2) [facility] Start: 2011 [facility] Start: 2006 COLOGUARD (FIT-DNA) COLOGUARD (FIT-DNA) [facility] Start: 2006 Colonoscopy COLONOSCOPY [facility] Start: 2006 COLORECTAL CANCER SCREENING COLORECTAL CANCER SCREENING [facility] Start: [address] COLONOGRAPHY [facility] Start: 2006 FECAL OCCULT BLOOD FECAL OCCULT BLOOD [facility] Start: 2006 Prostate specific antigen measurement Prostate Cancer Screening Discussion [facility] Start: 2006 Screening for malignant neoplasm of colon [facility] Start: 2006 SIGMOIDOSCOPY SIGMOIDOSCOPY [facility] Start: 1996 Lipid panel Cholesterol [facility] Start: 1980 DTaP/Tdap/Td vaccine (1 - Tdap) DTaP/Tdap/Td vaccine (1 - Tdap) [place] Start: 1980 DTaP/Tdap/Td Vaccines (1 - Tdap) DTaP/Tdap/Td Vaccines (1 - Tdap) [facility] Start: 1980 Hepatitis A (HAV) Vaccine (optional start 19+ years) Hepatitis A (HAV) Vaccine (optional start 19+ years) [facility] Start: 1980 Hepatitis B vaccine (1 of 3 - Risk 3-dose series) Hepatitis B vaccine (1 of 3 - Risk 3-dose series) [place] Start: 1980 Pneumococcal Vaccine: 50+ (1 of 2 - PCV) Pneumococcal Vaccine: 50+ (1 of 2 - PCV) [facility] Start: 1980 Pneumococcal Vaccine: 50+ Years (1 of 2 - PCV) Pneumococcal Vaccine: 50+ Years (1 of 2 - PCV) [facility]: 1980 Urine microalbumin profile [facility] Start: 1980 [facility] Start: 1979 ANNUAL PCP TEAM CHRONIC DISEASE VISIT ANNUAL PCP TEAM CHRONIC DISEASE VISIT [facility] Start: 1979 Anxiety Screening Anxiety Screening [facility] Start: 1979 Depression Screening Depression Screening [facility] Start: 1979 Diabetes: Urine Albumin-Creatinine Ratio for Kidney Health Diabetes: Urine Albumin-Creatinine Ratio for Kidney Health [facility] Start: 1979 Diabetic microalbuminuria test Diabetic microalbuminuria test [place] Start: 1979 Hepatitis C screening [facility] Start: 1979 Tetanus + diphtheria + acellular pertussis vaccine (product) Tdap Booster [facility] Start: 1979 [facility] Start: 1977 ONE PNEUMOVAX PRIOR TO AGE 65 ONE PNEUMOVAX PRIOR TO AGE 65 [facility] Start: 1976 HIV screening [facility] Start: 1973 Adult depression screening assessment DEPRESSION SCREENING [facility] Start: 1973 Depression Monitoring Depression Monitoring [facility] Start: 1973 [facility] Start: 1971 3 comp foot exam completed DIABETIC FOOT EXAM [facility] Start: 1971 Diabetic foot examination [facility] Start: 1971 Diabetic retinal exam Diabetic retinal exam [place], [place] Start: 1971 Glaucoma screening [facility] Start: 1971 Hepatitis B screening URINE ALBUMIN:CREATININE RATIO [facility] Start: 1971 Hepatitis C antibody, confirmatory test DILATED RETINAL EXAM [facility] Start: 1971 Preventive dental service [facility] Start: 1967 PNEUMOCOCCAL (1 - PCV) PNEUMOCOCCAL (1 - PCV) [facility] Start: 1967 Pneumococcal 0-64 years Vaccine (1 of 1 - PPSV23) Pneumococcal 0-64 years Vaccine (1 of 1 - PPSV23) [place] Start: 1967 Pneumococcal Vaccine: Pediatrics (0 to 5 Years) and At-Risk Patients (6 to 64 Years) (1 - PCV) Pneumococcal Vaccine: Pediatrics (0 to 5 Years) and At-Risk Patients (6 to 64 Years) (1 - PCV) [facility] Start: 1967 Pneumococcal Vaccine: Pediatrics (0 to 5 Years) and At-Risk Patients (6 to 64 Years) (1 of 2 - PCV) Pneumococcal Vaccine: Pediatrics (0 to 5 Years) and At-Risk Patients (6 to 64 Years) (1 of 2 - PCV) [facility] Start: 1967 [facility] Start: 1966 COVID-19 VACCINE (#1) COVID-19 VACCINE (#1) [facility] Start: 1962 MMR Vaccines (1 of 1 - Standard series) MMR Vaccines (1 of 1 - Standard series) [facility] Start: 1962 [facility] Start: 02-01-1962 COVID-19 VACCINE (#1) COVID-19 VACCINE (#1) [facility] Start: 1961 Hepatitis C screening Hepatitis C screen [place], [place] Start: 1961 HIV screening [facility] Start: 1961 Lipid panel [facility] Start: 1961 Medicare Annual Wellness (AWV) Medicare Annual Wellness (AWV) [facility] Start: 1961 Screening for malignant neoplasm of colon [facility] Start: 1961 [facility] End: 08-22-2025 25 hydroxy includes fractions if performed VITAMIN D, 25-HYDROXY Lab Routine Osteoporosis, unspecified osteoporosis type, unspecified pathological fracture presence 1 Occurrences starting 08/22/2024 until 08/22/2025 [facility] Comment on above: 1 Occurrences starting 08/22/2024 until 08/22/2025 Aerobic and Anaerobi c Culture with Stain [facility] Work Phone: Comment on above: Release Upon Ordering for 1 Occurrences starting 05/05/2024 Aerobic and Anaerobi c Culture with Stain [facility] [employer] [facility] Work Phone: Comment on above: Release Upon Ordering for 1 Occurrences starting 04/24/2025 End: 08-22-2025 Assay of parathormone PARATHYROID HORMONE INTACT Lab Routine Osteoporosis, unspecified osteoporosis type, unspecified pathological fracture presence 1 Occurrences starting 08/22/2024 until 08/22/2025 [facility] Comment on above: 1 Occurrences starting 08/22/2024 until 08/22/2025 Bacteria identified in Blood by Culture [facility] Work Phone: End: 04-14-2024 Bacteria identified in Lower respiratory specimen by Aerobe culture [facility] [employer] Bacteria identified in Unspecified specimen by Aerobe culture Culture, Aerobic Bacteria with Gram Stain Microbiology Routine Calculus of ureter 05/05/2024 4:14 PM EDT [facility] [employer] End: 05-05-2024 Bacteria identified in Unspecified specimen by Anaerobe culture [facility] [employer] Comment on above: Once for 1 Occurrences starting 05/05/20 24 until 05/05/2024 Bacteria identified in Unspecified specimen by Anaerobe culture [facility] [employer] End: 05-23-2023 Bacteria identified in Urine by Culture [facility] [employer] [facility] Work Phone: Comment on above: Once (Lab) for 1 Occurrences starting until 05/23/2023 Basic metabolic 2000 panel Basic Metabolic Panel Lab Routine Daily until discontinued starting 10/25/2020, 1 completed [employer] Comment on above: Daily until discontinued starting 2020, 1 completed End: 08-22-2025 Basic metabolic 2000 panel - Serum or Plasma BASIC METABOLIC PANEL Lab Routine Osteoporosis, unspecified osteoporosis type, unspecified pathological fracture presence 1 Occurrences starting 08/22/2024 until 08/22/2025 [facility] [employer] Work Phone: Comment on above: 1 Occurrences starting 08/22/2024 until 08/22/2025 Calculi Analysis(Stone) [facility] [employer] Comment on above: Release Upon Ordering for 1 Occurrences starting 05/05/2024 CBC Auto Differential CBC Auto D ifferential Lab Routine Daily until discontinued starting 10/25/2020, 1 completed [employer] Comment on above: Daily until discontinued starting 2020, 1 completed End: 04-14-2024 Fungus identified in Unspecified specimen by Culture [facility] [employer] [facility] Work Phone: Fungus identified in Unspecified specimen by Culture Fungal Culture Microbiology Routine Calculus of ureter 05/05/2024 4:14 PM EDT [facility] [employer] End: 04-14-2024 Lactic acid with reflex [facility] Work Phone: Oxygen therapy [[facility] Data Set] Initiate Oxygen Therapy Protocol Respiratory Care Routine Daily until discontinued starting 10/24/2020 [facility] RAMIRE[facility] Comment on above: Daily until discontinued starting 2020 POCT glucose [facility] CASSIE Banks Comment on above: 4X Daily [...] 2hr while awake until discontinued starting 10/24/2020 [place] Comment on above: Every 2hr while awake until discontinued starting 10/24/2020 End: 04-14-2024 Urinalysis complete panel - Urine [employer] Work Phone: Immunizations Immunization Date Immunization Notes Care Provider Nessa peñaloza 04-15-2024 Hemoglobin A1C [facility] 04-04-2024 Hemoglobin A1C Mh [facility] Payers Date Payer Category Payer Medicare (Managed Care) 1.2. [id number] 2024 Medicare HMO [facility] MEDICARE [id number] 2024 Medicare [id number] 2024 Self-pay [id number] 2024 Medicare [id number]. [id number] 2024 Medicare FFS MEDICARE [id number] 2024 Unknown [id number] 2024 Unknown [id number] 2022 Medicaid [id number]. [id number] 2021 Medicaid [facility] MEDICAID [facility] MEDICAID [id number] 2021-Present [phone] [address] [place] [address] Medicaid [id number]. [id number] 2016 Unknown [id number] 2008 Unknown 1961 Unknown [id number] 2.16.840.1.433803.3.579.2. 182 1961 Unknown [id number] 2.16.840.1.582893.3.579.2. 182 1961 Unknown [id number] 2.16.840.1.658164.3.579.2. 732 1961 Unknown [id number] 2.16.840.1.329261.3.579.2. 732 1961 Unknown [id number] 2.16.840.1.945533.3.579.2. 732 1961 Unknown [id number] 2.16.840.1.934224.3.579.2. 732 1961 Unknown [id number] 2.16.840.1.227626.3.579.2. 732 1961 Unknown [id number] 2..840.1.944889.3.579.2. 732 1961 Unknown [id number] 2..840.1.568701.3.579.2. 732 1961 Unknown [id number] 2.840.1.963483.3.579.2. 732 1961 Unknown [id number] 2.840.1.802735.3.579.2. 732 1961 Unknown [id number] 2.840.1.622967.3.579.2. 732 1961 Unknown [id number] 2.840.1.084251.3.579.2. 732 1961 Unknown [id number] 2.840.1.205768.3.579.2. 732 Unknown [id number] 2.840.1.395459.3.579.2. 462 Unknown [id number] 2.840.1.729908.3.579.2. 462 Unknown [id number] 2.840.1.155949.3.579.2. 462 Unknown [id number] 2.16.840.1.700620.3.579.2. 462 Unknown [id number] 2.16.840.1.947805.3.579.2. 462 Unknown [id number] 2.16.840.1.800140.3.579.2. 462 Unknown [id number] 2.16840.1.102964.3.579.2. 462 Unknown [id number] 2.16.840.1.929607.3.579.2. 462 Unknown [id number] 2.16.840.1.095825.3.579.2. 462 Unknown [id number] 2.16.840.1.952035.3.579.2. 462 Unknown [id number] 2.16.840.1.963199.3.579.2. 462 Unknown [id number] 2.16.840.1.900452.3.579.2. 462 Unknown [id number] 2.16.840.1.394297.3.579.2. 462 Unknown [id number] 2.16.840.1.676309.3.579.2. 462 Unknown [id number] 2.16.840.1.737826.3.579.2. 462 Unknown [id number] 2.16.840.1.254819.3.579.2. 462 Unknown [id number] 2.16.840.1.247182.3.579.2. 462 Unknown [id number] 2.16.840.1.916649.3.579.2. 462 Unknown [id number] 2.16.840.1.237630.3.579.2. 462 Unknown [id number] 2.16.840.1.521353.3.579.2. 462 Unknown [id number] 2.16.840.1.157952.3.579.2. 462 Unknown [id number] 2.16840.1.232116.3.579.2. 462 Social History Date Type Detail Facility Start: 10-05-1977 End: 04-27-2024 Tobacco smoking status NHIS Current every day smoker [facility] Start: 10-24-2020 End: 04-27-2024 Tobacco use and exposure Never used [place] Start: 10-24-2020 End: 04-24-2025 Alcohol intake Current non-drinker of alcohol (finding) [place] Start: 10-15-2020 History SDOH Food Worry 1 [place], [place] Start: 10-15-2020 History SDOH Transport Med 2 [place] Start: 12-21-2016 Alcohol Comment occ [place] Start: 1960 Sex Assigned At Not on file [place] Start: 05-13-2023 End: 05-23-2023 Exposure to SARS-CoV-2 (event) Not sure [place] Start: 08-09-2013 End: 04-22-2025 Current every day smoker Current every day smoker [facility] Start: 10-05-1977 History of tobacco use Cigarette Smoker [facility] Start: 1960 Sex Assigned At Male [facility] Start: 01-27-2022 End: 02-06-2022 Exposure to SARS-CoV-2 (event) Unable to assess [facility] Start: 12-29-2023 End: 04-22-2025 Gender identity Not on file [facility] Tobacco smoking stat [facility] Tobacco smoking consumption unknown [facility] Has the [employer] threatened to shut off services in your home in past 12Mo No Link To [employer] [facility] How often to you hav e a drink containing alcohol? Never [facility] How many standard drinks containing alcohol do you have on a typical day? Patient does not drink [facility] [employer] (I/We) worried wheth er (my/our) food would run out before (I/we) got money to buy more. Never true [facility] [employer] Start: 05-05-2022 End: 11-27-2023 Sex Male (finding) [facility] Work Phone: Start: 11-29-2021 Gender identity Identifies as male gender (finding) [facility] Start: 10-23-2023 Sexual orientation Heterosexual (finding) [facility] Medical Equipment Procedure Code Equipment Code Equipment Origin al Text Equipment Identifier Dates Graft Infuse 20g a Medium Bovine Collagen Rhbmp-2 2x1in Bone Vial Absorbable - [id number] Start: 01-14-2022 Substitute Master[employer] Calcium Phosphate Collagen Bone Graft Putty Void - [id number] Start: 12-12-2021 Substitute [employer] 10cm Bone Graft Strip 12ml Spine - [id number] Start: 01-14-2022 Substitute [employer] 10cm Bone Graft Strip 12ml Spine - [id number] Start: 01-14-2022 Creo Thread 6.5 X [...] Uret 6fr 2 2cm Wo Gw - [id number] Start: 05-05-2024 Stent Uret 6fr 2 2cm Wo Gw - [id number] Start: 05-05-2024 Functional Status Date Assessment Result Facility 04-21-2025 Total score [AUDIT-C] 0 04/21/20 25 10:31 PM EDT Giovana Barnard RN [facility] 02-22-2025 Are you deaf, or do you have serious difficulty hearing No 02/22/2025 8:55 PM JARODT Nahun Gunderson RN No [facility] 02-22-2025 Are you blind, or do you have serious difficulty seeing, even when wearing glasses No 02/22/2025 8:55 PM Nahun Hollingsworth RN No [facility] 02-22-2025 Do you have serious difficulty walking or climbing stairs Yes 02/22/2025 8:55 PM Nahun Hollingsworth RN Yes [facility] 02-22-2025 Do you have difficul ty dressing or bathing Yes 02/22/2025 8:55 PM EDT Nahun Gunderson RN Yes [facility] 02-22-2025 Because of a physica l, mental, or emotional condition, do you have difficulty doing errands alone such as visiting a physician's office or shopping Yes 02/22/2025 8:55 PM EDT Nahun Gunderson RN Yes [facility] 01-24-2022 Are you deaf, or do you have serious difficulty hearing No 01/24/2022 5:46 PM EDT Tiffanie Womack RN No [facility] 01-24-2022 Are you blind, or do you have serious difficulty seeing, even when wearing glasses No 01/24/2022 5:46 PM JARODT Tiffanie Womack RN No [facility] 01-24-2022 Do you have serious difficulty walking or climbing stairs Yes 01/24/2022 5:46 PM EDT Tiffanie Womack RN Yes [facility] 01-24-2022 Do you have difficul ty dressing or bathing Yes 01/24/2022 5:46 PM EDT Tiffanie Womakc RN Yes [facility] 01-24-2022 Because of a physica l, mental, or emotional condition, do you have difficulty doing errands alone such as visiting a physician's office or shopping No 01/24/2022 5:46 PM Tiffanie Boston RN No [facility] Mental Status Date Assessment Result Facility 02-22-2025 Because of a physica l, mental, or emotional condition, do you have serious difficulty concentrating, remembering, or making decisions No 02/22/2025 8:55 PM Nahun Hollingsworth RN No [facility] 01-24-2022 Because of a physica l, mental, or emotional condition, do you have serious difficulty concentrating, remembering, or making decisions No 01/24/2022 5:46 PM Tiffanie Boston RN No [facility] Clinical Notes 01-16-2021 to 06-02-2025 Savage Castillo MD - 06/02/2025 11:00 AM EDTTelephone Encounter - Noemi Spence RN - 05/25/2025 11:01 AM EDTTelephone Encounter - Cheryl Pimentel LPN - 05/24/2025 9:13 AM EDTDischarge Instr - Diet Note Date & Type Note Facility 06-02-2025 History of Present illness Narrative Images from the original note were not included. [facility] INFECTIOUS DIS [address] [place] [id number] Post-Discharge Hospital Follow Up Date of [...] Pressure injury of coccygeal region, stage 3 ([facility]) 2. Other acute osteomyelitis, other site ([facility]) 3. MRSA (methicillin resistant Staphylococcus aureus) infection 4. Encounter for long-term (current) use of antibiotics 5. Paraplegia (HCC) Overall healing well- continue antibiotics to 06/06 as previously outlined. OK to pull pICC afterwards and no additional po tail necessary. Continue VAC dressing, defer to Surgery duration necessary. Recommend follow up with [facility] Surgery- Dr. Kaela Durand who performed I+D [...] raffinosus and MRSA. Patient dishcarged back to ECF with IV Vancomycin and Unasyn per ID [...] to 06/06. Still on Wound VAC at [facility]. Overall doing better. I have performed a [...] and CBC WNL. documented in this encounter [facility] 05-25-2025 Miscellaneous Notes Received a call from nurse Nikki [phone] stating Vanc tr this week is 17 and asking if IV Vanc can be hung. Told her yes, hang Vanc as trough is within therapeutic range. Per Nikki, they will obtain another Vanc level on 05/29. Received a call from Clement nurse at [facility]. She stated the labs that were [...] labs are received. documented in this encounter [facility] 05-25-2025 Telephone encounter Note Received a call from nurse Nikki [phone] stating Vanc tr this week is 17 and asking if IV Vanc can be hung. Told her yes, hang Vanc as trough is within therapeutic range. Per Nikki, they will obtain another Vanc level on 05/29. [facility] 05-24-2025 Telephone encounter Note Received a call from Clement stoner at [facility]. She stated the labs that were [...] vanc until this weeks labs are received. [facility] 04-28-2025 Nurse Note Called report to the [facility]. PICC line clean dry and intact. Aide got pt ready and gathered all belongings. Waiting on transport to arrive. [facility] 04-28-2025 Nurse Note Called report to the [facility]. PICC line clean dry and intact. Aide got pt ready and gathered all belongings. Waiting on transport to arrive. Patient dressings changed as per orders. Patient tolerated well. Left PICC dressing changed patient tolerated well documented in this encounter [facility] 04-28-2025 Note Discharge Summary Anmol Reynolds [...] feeding: High Dos (more content not included)... [facility] 04-28-2025 Hospital course Narrative Images from the [...] Complexity: follow up within 7-14 calendar days (58044) [] Severe Complexity: follow up within 7 calendar days (70579) FOLLOW UP TESTING, PENDING RESULTS OR REFERRALS AT TRANSITIONAL CARE VISIT: [] Yes [] No PENDING STUDIES: DISPOSITION: Skilled Facility FACILITY/HOME CARE AGENCY NAME: Follow up with Tab Dupont PCP - General Internal Medicine [phone] [facility] [address] [address] Next Steps: Schedule an appointment as soon as possible for a visit in 1 week(s) [facility] Wound Ostomy Wound Care [phone] [facility] [address] Next Steps: Schedule an appointment as soon as possible for a visit Kaela Durand MD Surgical Critical Care General Surgery Trauma Surgery [phone] [facility] [address] Next Steps: Schedule an appointment as soon as possible for a visit in 2 week(s) Savage Castillo MD Infectious Diseases [phone] [facility] [address] Next Steps: Schedule an appointment as soon [...] 04/28/2025, 2:45 PM documented in this encounter [facility] 04-28-2025 Plan of care note Proteus is sensitive to unasyn. OPAT for unasyn and vancomycin completed and scanned into media with stop date of 06/06. Follow up with Dr. Castillo. D/w TCC. Plans for discharge to SNF. Jo-Ann Ortiz MD [facility] Work Phone: 04-28-2025 Miscellaneous Notes Proteus is sensitive to unasyn. OPAT for unasyn and vancomycin completed and scanned into media with stop date of 06/06. Follow up with Dr. Castillo. D/w TCC. Plans for discharge to SNF. Jo-Ann Ortiz MD Confirmed pickup time of 5:30pm on 04/28/25 by transport [employer] at phone number [phone]. Location of facility drop off is [facility]. [facility] notified on secure chat. Transport requested in Roundtrip in will call to [facility] per [facility]. Care Management Progress Note Short Medical why still here: continues to be treated for osteomyelitis. ID following- awaiting sensitivities for final IV plan. Currently receiving IV unasyn and vanc. PICC Line intact for antic 6wk course. Planned Discharge Disposition: plan for return to [facility]- will NOT need auth. [facility] to place pt in roundtrip under will [...] Planned Discharge Disposition: Plan for return to [facility]- does not need auth. Barriers/Today we still Wait: ID plan/opat. Length of Stay (Days): 5 GMLOS: 8.4 Care Management Progress Note Short Medical why still here: Pt continues to be treated for osteomyelitis. Receiving IV merrem q8hr with plan for 6wk tx per ID-final plan not complete. Planned Discharge Disposition: plan for return to [facility]- will need auth d/t skilled need for IV atb tx. Facility updated and asked to submit for auth. ADELINE complete. Barriers/Today we still Wait: Plan from ID/line placement and auth. Length of Stay (Days): 4 GMLOS: 8.4 Care Management Progress Note Short Medical why still here: Pt continues to be treated for osteomyelitis. ID following- receiving IV merrem and vanc- anticipate retirement tx. Planned Discharge Disposition: Pt from [facility]- met with pt this afternoon- introduced self and role. Verified return when stable. Will need auth if pt has skilled needs (IV atb greater than once a day will qualify). Barriers/Today we still Wait: ID plan/line placement/opat. Length of Stay (Days): 3 GMLOS: 8.4 SW consult-[facility] transportation. SW reviewed chart. Pt is a LTC resident of [facility]. [place] is responsible for pt transportation for medical appointments. . Return Referral placed to [facility] via Careport per TCC request. Await review and response regarding ability to accept. TCC notified. Care Management Progress Note Short Medical why still here: Pt adm for tx/evaluation of osteomyelitis. OR this am with surgery for debridement of sacral and ischial wounds. 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 Attempted to confirm return with pt however [...] achieved with bovie electrocautery. Two pieces of Willard patch were placed in the wound bed. [...] x 4 cm = 28 cm2 [CPT 34699, 64428] Open biopsy of left ischium [CPT 62587] This note is electronically signed by: Kaela [...] EMS pt was sent here from the [facility] for wound infections. Pt has two wound [...] Response: Oriented Best Motor Response: Follows commands Amidon Coma Scale Score: 15 PHYSICAL EXAM ED [...] Procedure Abnormality Status --------- ------ Culture, Aerobic Bacteri...[[id number]] Abnormal Preliminary result Anaerobic culture[[id number]] In process Please view results for these [...] DECOMPRESSION performed by Opal Vigil MD at [facility] OR ORTHOPEDIC SURGERY Right [...] Resource Strain: Low Risk (04/24/2023) Received from [facility] Overall Financial Resource Strain (CARDIA) Difficulty of Paying Living Expenses: Not hard at all Food Insecurity: No Food Insecurity (02/17/2025) Received from [facility] Hunger Vital Sign Worried About Running Out of Food in the Last Year: Never true Ran Out of Food in the Last Year: Never true Transportation Needs: No Transportation Needs (02/17/2025) Received from [facility] PRAPARE - Transportation Lack of Transportation (Medical): No Lack of Transportation (Non-Medical): No Intimate Partner Violence: Not At Risk (05/18/2024) Humiliation, Afraid, Rape, and Kick questionnaire Fear of Current or Ex-Partner: No Emotionally Abused: No Physically Abused: No Sexually Abused: No Housing Stability: Unknown (02/17/2025) Received from [facility] Housing Stability Vital Sign Unable to Pay for Housing in the Last Year: No Homeless in the Last Year: No Brad Campos MD 04/22/25 0201 documented in this encounter [facility] 04-28-2025 Progress note Formatting of t his note might be different from the original. Confirmed pickup time of 5:30pm on 04/28/25 by [employer] at phone number [phone]. Location of facility drop off is [facility]. Facility notified via Careport, [facility] notified on secure chat. [facility] 04-28-2025 Hospital Discharge instructions Berhane Moreno [...] DECOMPRESSION performed by Opal Vigil MD at [facility] OR ORTHOPEDIC SURGERY Right [...] assistance Toileting Total assistance Feeding Minimal assistance Research Assistant Professor Minimal assistance Med Delivery yes Wound Care [...] Date: 04/22/25 [facility] [address], [place] [address] 13 ca Glue Spreader/Billet Heater signature: ICIAN SECTION Name: Anmol Reynolds Prognosis: [...] and Home or a unit of a surgical specialty center at [facility] that is not operated by or licensed by [facility] under section 5119.14 or 5160-3-15.1 5 The individual requires the level of services provided by a nursing facility for the condition for which he or she was treated in the hospital and, Physician Certification: I certify the above information and transfer of Anmol Reynolds is necessary for the continuing treatment of the diagnosis listed and that he requires fpc facility for greater than 30 days. Update Admission H&P: No change in H&P PHYSICIAN SIGNATURE: documented in this encounter [facility] 04-28-2025 Progress note Formatting of t his note might be different from the original. Transport requested in Roundtrip in will call to [facility] per TCC. [facility] 04-28-2025 Note Care Management Prog ress Note Short Medical why still here: continues to be treated for osteomyelitis. ID following- awaiting sensitivities for final IV plan. Currently receiving IV unasyn and vanc. PICC Line intact for antic 6wk course. Planned Discharge Disposition: plan for return to [facility]- will NOT need auth. QUENCHING CAR OPERATOR to place pt in roundtrip under will call for transport assist. Barriers/Today we still Wait: need opat/final plan for discharge. Length of Stay (Days): 6 GMLOS: 8.4 [facility] 04-28-2025 Progress note Formatting of t his note might be different from the original. Care Management Progress Note Short Medical why still here: continues to be treated for osteomyelitis. ID following- awaiting sensitivities for final IV plan. Currently receiving IV unasyn and vanc. PICC Line intact for antic 6wk course. Planned Discharge Disposition: plan for return to [facility]- will NOT need auth. QUENCHING CAR OPERATOR to place pt in roundtrip under will call for transport assist. Barriers/Today we still Wait: need opat/final plan for discharge. Length of Stay (Days): 6 GMLOS: 8.4 [facility] 04-28-2025 Note Hospitalist Progress Note 04/28/2025 10:05 AM [phone]: Please page me for patient care issues. [phone]: Please page [facility] night Hospitalist for any issues. Subjective: Admit Date: 04/21/2025 PCP: Tab Dupont Room#: N4-765/N4-275 A Interval History: Patient seen and examined [...] diet Regular; 4 carb choices (60 gm/meal) @[id number]@ Medications: Continuous Meds[2] Scheduled Meds[3] LABS: CBC: [...] daily Wound care team following. PT recommended fpc facility Continue IV Venofer as ordered for [...] Reynolds Mobile Relation (more content not included)... [facility] 04-28-2025 History of Present illness Narrative Hospitalist Progress Note 04/28/2025 10:05 AM [phone]: Please page me for patient care issues. [phone]: Please page [facility] Hospitalist for any issues. Subjective: Admit Date: 04/21/2025 PCP: Tab Dupont Room#: N4-051/N4-719 A Interval History: Patient seen and examined [...] diet Regular; 4 carb choices (60 gm/meal) @[id number]@ Medications: Continuous Meds[2] Scheduled Meds[3] LABS: CBC: [...] daily Wound care team following. PT recommended fpc facility Continue IV Venofer as ordered for [...] made to ensure accuracy; however, inadvertent computerized director cpg errors may be present. Berhane Moreno MD Division of Hospitalist Medicine [facility] PAGER: Epic chat [1] Past Medical History: [...] creatinine, and vancomycin levels interfaced automatically to Unidesk and data has been analyzed and interpreted. [...] Chat Hospitalist Progress Note 04/27/2025 9:04 AM [phone]: Please page me for patient care issues. [phone]: Please page [facility] night Hospitalist for any [...] diet Regular; 4 carb choices (60 gm/meal) @[id number]@ Medications: Continuous Meds[2] Scheduled Meds[3] LABS: CBC: [...] daily Wound care team following. PT recommended fpc facility Continue IV Venofer as ordered for [...] made to ensure accuracy; however, inadvertent computerized director cpg errors may be present. Berhane Moreno MD Division of Hospitalist Medicine [facility] [employer] PAGER: Clyde chat [1] Past Medical History: Diagnosis Date [...] creatinine, and vancomycin levels interfaced automatically to Unidesk and data has been analyzed and interpreted. [...] Chat Hospitalist Progress Note 04/26/2025 9:58 AM [phone]: Please page me for patient care issues. [phone]: Please page [facility] night Hospitalist for any issues. Subjective: Admit Date: 04/21/2025 PCP: Tab Dupont Room#: N4-410/N4-708 A Interval History: Patient seen and examined [...] diet Regular; 4 carb choices (60 gm/meal) @[id number]@ Medications: Continuous Meds[2] Scheduled Meds[3] LABS: CBC: [...] daily Wound care team following. PT recommended fpc facility IV Venofer for iron deficiency anemia ordered x 2 dose Hold ferrous sulfate Discussed with resident care assistant by clyde malone--okay to restart anticoagulation today [...] made to ensure accuracy; however, inadvertent computerized director cpg errors may be present. Berhane Moreno MD Division of Hospitalist Medicine [facility] PAGER: Clyde malone [1] Past Medical History: [...] creatinine, and vancomycin levels interfaced automatically to Unidesk and data has been analyzed and interpreted. [...] Chat Hospitalist Progress Note 04/25/2025 5:34 PM [phone]: Please page me for patient care issues. [phone]: Please page [facility] night Hospitalist for any issues. Subjective: [...] diet Regular; 4 carb choices (60 gm/meal) @[id number]@ Medications: Continuous Meds[2] Scheduled Meds[3] LABS: CBC: [...] daily Wound care team following PT recommended fpc facility Check iron profile Patient can be [...] made to ensure accuracy; however, inadvertent computerized director cpg errors may be present. Berhane Moreno MD Division of Hospitalist Medicine Acute Care [facility] PAGER: Epic chat [1] Past Medical History: [...] Oral, Daily vancomycin, 1,500 mg, IntraVENous, q12h [facility] - Infectious Diseases Attending [...] HGB 13.7 04/14/2024 1730 HCT 32.6 (L) 04/25/20256 PLT 421 04/25/20256 LYMPHOPCT 20.7 04/25/20256 LYMPHOPCT 32 04/20/2024 0359 MONOPCT 9.3 04/25/202555 MONOPCT 10 04/20/2024 0359 BASOPCT 0.4 04/25/202555 BASOPCT 1 04/19/2024 0428 NEUTROABS 6.5 04/25/202555 Micro: 04/24 tissue cx: E raffinosus so far 04/21 Wound cx: MRSA, anaerobic GNR, not B fragilis Lines: PIV Radiography/Echo/Other: reviewed Antimicrobials, Start/End Dates: Vancomycin Cefepime to Meropenem Impression: 64 M admitted from [facility] with: Worsening decubitus ulcer , concerning for [...] creatinine, and vancomycin levels interfaced automatically to Unidesk and data has been analyzed and interpreted. [...] TIME: 9:15 AM Bridgette Virk PharmD PGY1 Air Conditioning Sheet Metal Installer Available via Secure Chat Images from the [...] from last 7 days Lab Units 04/25/256 04/24/256 04/23/25 0013 WBC AUTO 10*3/uL 9.5 9.3 [...] call with questions or concerns Maureen Garduno, QUALITY AUDIT REPRESENTATIVE - DEMURRAGE AGENT 04/25/25 7:58 AM [1] [Held by provider] [...] PLT [phone] BMP: Recent Labs 04/21/257 04/23/253 04/24/25 0206 NA 130* 133* 136 K [...] Clarke DO Radhames Division of Hospitalist Medicine [facility] [1] Past Medical History: Diagnosis [...] (BLE Edema: Moderate pitting, indentation subsides rapidly) Chief Lifestyle Officer Strength: Not Performed Chief Complaint Patient presents with Wound Infection Per EMS pt was sent here from the [facility] for wound infections. 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 Nurse states she ordered [...] (kg): 82.41 kg Total Energy Requirements (kcals/day): 5038-1432 (25-30 kcals/kg) Weight Used for Protein Requirements: [...] 65 Net IO Since Admission: -3,820 mL [04/24/251614] Intake/Output Summary (Last 24 hours) at 04/24/2025 [...] in paraplegia) % Weight Change (Calculated): 0 [place] Body Weight (lbs) (Calculated): 196 lbs [place] Body Weight (Kg) (Calculated): 89 kg % [place] Body Weight (Calculated): 99.5 % BMI (kg/m2) (Calculated): 24.4 Weight Adjustment For: Paraplegia % Weight Adjustment: 7.5 - Paraplegia Total Adjusted Percentage (Calculated): 7.5 Adjusted [place] Body Weight (lbs) (Calculated): 181.3 lbs Adjusted [place] Body Weight (kg) (Calculated): 82.41 kg Adjusted [...] Elly Hou MS, RD, LD Contact: or [place] (dial *[phone] from hospital phone) [1] Past Medical History: [...] DECOMPRESSION performed by Opal Vigil MD at [facility] OR ORTHOPEDIC SURGERY Right [...] creatinine, and vancomycin levels interfaced automatically to Unidesk and data has been analyzed and interpreted. [...] placed. DATE: 04/24/25 TIME: 10:29 AM Jewell Gambnio PharmD Clinical Pharmacist Available via Secure Chat Patient out of room at time of visit Wound care to follow up at a later time JOE Diaz CNP Family Communication Number Called: [phone] Name of Designated Family Inclined Railway Operator: Ronald Given Relationship: brother Phone Call Outcome: I spoke with the individual listed above. Family Inclined Railway Operator Updated on the Following: I updated [...] s/p surgical complication with Dr. Ashley at [facility], HLD, HTN, MDD, OA, a-fib on [...] MD Division of Trauma Department of Surgery [facility] [1] Patient Active Problem List [...] Mobile Relation: Daughter Kerwin RicciDO Division [facility] Medicine [facility] [1] Past Medical History: Diagnosis [...] original note were not included. PHYSICAL THERAPY [facility] Initial Evaluation Name/MRN: Anmol Reynolds ([id number]) Evaluation Date: 04/23/2025 Date of : 1960 Admission Date: 04/21/2025 9:56 PM Age: 64 y.o. Room/Bed: N4-[facility]/N4-465 B Discharge Recommendation: Long Term Facility Equipment Needed: No Assessment IMPRESSION: PT [...] Anxiety 01/06/2017 Other acute osteomyelitis, other site ([facility]) 04/22/2025 Positive blood cultures 05/17/2024 Calculus of ureter 05/06/2024 Bladder calculus 05/05/2024 Pressure injury of coccygeal region, stage 3 ([facility]) 04/20/2024 Septic shock ([facility]) 04/14/2024 Lumbar stenosis with neurogenic claudication 10/24/2020 [...] x4 Social/Functional History Patient admitted from [facility] . Assistive Equipment: wheelchair - manual [...] of Care supervision is transferred to a [facility] Therapy Services Physical Therapist. Goals and/or [...] DECOMPRESSION performed by Opal Vigil MD at [facility] OR ORTHOPEDIC SURGERY Right removal of hardware ankle US PLACE URETAL STENT PERC PRE-EXIST TRACT S&I (HISTORICAL) Bilateral 04/14/2024 Dr. Grimm/Bashir Pharmacy to Dose Vancomycin - Progress Note Lab Results Component Value Date CREATININE 0.54 (L) 04/23/2025 BUN 8 (L) 04/23/2025 WBC 9.4 04/23/2025 VANCORANDOM 12.3 (L) 04/16/2024 VANCOTROUGH 12.4 04/22/2025 Doses, serum creatinine, and vancomycin levels interfaced automatically to Unidesk and data has been analyzed and interpreted. [...] Daughter Kerwin Ricci Division of Hospitalist Medicine [facility] [1] Past Medical History: Diagnosis [...] creatinine, and vancomycin levels interfaced automatically to Unidesk and data has been analyzed and interpreted. [...] via Secure Chat documented in this encounter [facility] 04-28-2025 Note Pharmacy to Dose Van comycin - Progress Note Lab Results Component Value Date CREATININE 0.64 (L) 04/27/2025 BUN 21 04/27/2025 WBC 8.0 04/27/2025 VANCORANDOM 12.3 (L) 04/16/2024 VANCOTROUGH 12.0 04/24/2025 Doses, serum creatinine, and vancomycin levels interfaced automatically to Unidesk and data has been analyzed and interpreted. [...] placed. DATE: 04/28/25 TIME: 7:21 AM Lauryn eBgum, Hans Clinical Pharmacist Available via Secure Chat [facility] 04-27-2025 Plan of care note Assuming coverage from Dr. Castillo- s/p Mina ischial wound debridement with osteomyelitis. Additional organisms are being reported on OR cx. E raffinosus, Proteus, MRSA, Clostridium ramosum, enteric gosia, and skin gosia. Await Proteus sensitivities prior to completion of OPAT. Will provide final recommendations tomorrow. D/w TCC. Jo-Ann Ortiz MD [facility] 04-27-2025 Note Care Management Prog ress Note Short Medical why still here: pt being treated for osteomyelitis. Receiving IV unaysn and vanc with ID planning on extended IV course- awaiting opat/final plan. Planned Discharge Disposition: [facility]- does not need auth. Barriers/Today we still Wait: ID plan/opat. Length of Stay (Days): 5 GMLOS: 8.4 [facility] 04-27-2025 Progress note Formatting of t his note might be different from the original. Care Management Progress Note Short Medical why still here: pt being treated for osteomyelitis. Receiving IV unaysn and vanc with ID planning on extended IV course- awaiting opat/final plan. Planned Discharge Disposition: Plan for return to [facility]- does not need auth. Barriers/Today we still Wait: ID plan/opat. Length of Stay (Days): 5 GMLOS: 8.4 [facility] 04-27-2025 Nurse Note Patient dressings changed as per orders. Patient tolerated well. Left PICC dressing changed patient tolerated well [facility] 04-27-2025 Note Hospitalist Progress Note 04/27/2025 9:04 AM [phone]: Please page me for patient care issues. [phone]: Please page [facility] night Hospitalist for any issues. Subjective: [...] diet Regular; 4 carb choices (60 gm/meal) @[id number]@ Medications: Continuous Meds[2] Scheduled Meds[3] LABS: CBC: [...] daily Wound care team following. PT recommended fpc facility Continue IV Venofer as ordered for [...] Primary Emergency Con (more content not included)... [facility] 04-27-2025 Note Pharmacy to Dose Van comycin - Progress Note Lab Results Component Value Date CREATININE 0.64 (L) 04/27/2025 BUN 21 04/27/2025 WBC 8.0 04/27/2025 VANCORANDOM 12.3 (L) 04/16/2024 VANCOTROUGH 12.0 04/24/2025 Doses, serum creatinine, and vancomycin levels interfaced automatically to Unidesk and data has been analyzed and interpreted. [...] PharmD Clinical Pharmacist Available via Secure Chat [facility] 04-26-2025 Note Care Management Prog ress Note Short Medical why still here: Pt continues to be treated for osteomyelitis. Receiving IV merrem q8hr with plan for 6wk tx per ID-final plan not complete. Planned Discharge Disposition: plan for return to [facility]- will need auth d/t skilled need for IV atb tx. Facility updated and asked to submit for auth. ADELINE complete. Barriers/Today we still Wait: Plan from ID/line placement and auth. Length of Stay (Days): 4 GMLOS: 8.4 [facility] 04-26-2025 Progress note Formatting of t his note might be different from the original. Care Management Progress Note Short Medical why still here: Pt continues to be treated for osteomyelitis. Receiving IV merrem q8hr with plan for 6wk tx per ID-final plan not complete. Planned Discharge Dis[facility] will need auth d/t skilled need for IV atb tx. Facility updated and asked to submit for auth. ADELINE complete. Barriers/Today we still Wait: Plan from ID/line placement and auth. Length of Stay (Days): 4 GMLOS: 8.4 [facility] 04-26-2025 Note Hospitalist Progress Note 04/26/2025 9:58 AM [phone]: Please page me for patient care issues. [phone]: Please page [facility] night Hospitalist for any issues. Subjective: Admit Date: 04/21/2025 PCP: Tab Dupont Room#: N4-507/N4-278 A Interval History: Patient seen and examined [...] diet Regular; 4 carb choices (60 gm/meal) @[id number]@ Medications: Continuous Meds[2] Scheduled Meds[3] LABS: CBC: [...] daily Wound care team following. PT recommended fpc facility IV Venofer for iron deficiency anemia ordered x 2 dose Hold ferrous sulfate Discussed with resident care assistant by epic chat--okay to restart anticoagulation today [...] monitoring : Accu-C (more content not included)... [facility] 04-26-2025 Note Pharmacy to Dose Van comycin - Progress Note Lab Results Component Value Date CREATININE 0.62 (L) 04/26/2025 BUN 19 04/26/2025 WBC 7.3 04/26/2025 VANCORANDOM 12.3 (L) 04/16/2024 VANCOTROUGH 12.0 04/24/2025 Doses, serum creatinine, and vancomycin levels interfaced automatically to Unidesk and data has been analyzed and interpreted. [...] Gomez, PharmD Clinical Pharmacist Available via Secure [employer] [facility] 04-25-2025 Note Hospitalist Progress Note 04/25/2025 5:34 PM [phone]: Please page me for patient care issues. [phone]: Please page [facility] night Hospitalist for any issues. Subjective: [...] diet Regular; 4 carb choices (60 gm/meal) @[id number]@ Medications: Continuous Meds[2] Scheduled Meds[3] LABS: CBC: [...] daily Wound care team following PT recommended fpc facility Check iron profile Patient can be [...] Daughter Advance D (more content not included)... [facility] 04-25-2025 Note Care Management Prog ress Note Short Medical why still here: Pt continues to be treated for osteomyelitis. ID following- receiving IV merrem and vanc- anticipate retirement tx. Planned Discharge Disposition: Pt from [facility]- met with pt this afternoon- introduced self and role. Verified return when stable. Will need auth if pt has skilled needs (IV atb greater than once a day will qualify). Barriers/Today we still Wait: ID plan/line placement/opat. Length of Stay (Days): 3 GMLOS: 8.4 [facility] 04-25-2025 Progress note Formatting of t his note might be different from the original. Care Management Progress Note Short Medical why still here: Pt continues to be treated for osteomyelitis. ID following- receiving IV merrem and vanc- anticipate termite exterminator tx. Planned Discharge Disposition: Pt from [facility]- met with pt this afternoon- introduced self and role. Verified return when stable. Will need auth if pt has skilled needs (IV atb greater than once a day will qualify). Barriers/Today we still Wait: ID plan/line placement/opat. Length of Stay (Days): 3 GMLOS: 8.4 [facility] 04-25-2025 Note [facility] - Infectious Diseases Attending [...] Date/Time WBC 9.5 04/25/202555 HGB 10.4 (L) 04/25/20256 HGB 13.7 04/14/2024 [...] to Meropenem Impression: 64 M admitted from [facility] with: Worsening decubitus ulcer , concerning for [...] optimize wound healing. Will follow. Case d/wCM. [facility] 04-25-2025 Note Pharmacy to Dose Van comycin - Progress Note Lab Results Component Value Date CREATININE 0.73 04/25/2025 BUN 14 04/25/2025 WBC 9.5 04/25/2025 VANCORANDOM 12.3 (L) 04/16/2024 VANCOTROUGH 12.0 04/24/2025 Doses, serum creatinine, and vancomycin levels interfaced automatically to Unidesk and data has been analyzed and interpreted. [...] TIME: 9:15 AM Bridgette Virk, JudyD PGY1 Air Conditioning Sheet Metal Installer Available via Secure Chat [facility] 04-25-2025 Note Department of [facility] l Surgery Daily Progress Note ADMIT DATE: 04/21/2025 TODAY'S DATE: 04/25/2025 HPI: Anmol Reynolds is a 64 y.o. male with significant past medical history of paraplegia s/p surgical complication with Dr. Ashley at [facility], HLD, HTN, MDD, OA, a-fib on [...] questions or concerns Maureen Garduno, JOE - DEMURRAGE AGENT 04/25/25 7:58 AM [1] [Held by provider] [...] polyethylene glycol (PEG) 3350, sodium chloride 0.9% [facility] 04-24-2025 Note Hospitalist Progress Note 04/24/2025 Subjective: [...] History: Medical History[1] LABS: CBC: Recent Labs 04/21/25225604/23/253 04/24/25 0206 WBC 12.5* 9.4 9.3 RBC 4.03* 3.47* 3.68* HGB 11.7* 9.9* 10.6* HCT 35.6* 30.7* 32.8* MCV 88.3 88.5 89.1 RDW 14.9 14.9 14.9 PLT 372 352 367 BMP: Recent Labs 04/21/25225604/23/253 04/24/25 0206 NA 130* 133* 136 K [...] precautions: increase ac (more content not included)... [facility] 04-24-2025 Note Patient declined smo rl cessation counseling. Accepting of handout with contact information for future reference. [facility] 04-24-2025 Progress note Formatting of t his note might be different from the original. SW consult-[facility] transportation. SW reviewed chart. Pt is a L[facility] resident of [facility]. [place] is responsible for pt transportation for medical appointments. . [facility] 04-24-2025 Note Return Referral plac ed to [facility] via [facility] per TCC request. Await review and response regarding ability to accept. TCC notified. [facility] 04-24-2025 Progress note Formatting of t his note might be different from the original. Return Referral placed to [facility] via [facility] per TCC request. Await review and response regarding ability to accept. TCC notified. [facility] 04-24-2025 Note Care Management Prog ress Note Short Medical why still here: Pt adm for tx/evaluation of osteomyelitis. OR this am with surgery for debridement of sacral and ischial wounds. Receiving IV merrem and vanc with ID following- anticipate retirement needs. 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 Attempted to confirm return with pt however pt sleeping this am- unable to arouse for conversation. Barriers/Today we still Wait: IV atb/ID plan. Length of Stay (Days): 2 GMLOS: 4 [facility] 04-24-2025 Progress note Formatting of t his note might be different from the original. Care Management Progress Note Short Medical why still here: Pt adm for tx/evaluation of osteomyelitis. OR this am with surgery for debridement of sacral and ischial wounds. Receiving IV merrem and vanc with ID following- anticipate retirement needs. Planned Discharge Disposition: Pt from [facility] term. Attempted to confirm return with pt however pt sleeping this am- unable to arouse for conversation. Barriers/Today we still Wait: IV atb/ID plan. Length of Stay (Days): 2 GMLOS: 4 [facility] 04-24-2025 Note Pharmacy to Dose Van comycin - Progress Note Lab Results Component Value Date CREATININE 0.59 (L) 04/24/2025 BUN 7 (L) 04/24/2025 WBC 9.3 04/24/2025 VANCORANDOM 12.3 (L) 04/16/2024 VANCOTROUGH 12.0 04/24/2025 Doses, serum creatinine, and vancomycin levels interfaced automatically to [employer] and data has been analyzed and interpreted. [...] PharmD Clinical Pharmacist Available via Secure Chat [facility] [employer] [facility] 04-24-2025 Note Patient: Anmol Franco Giv en Procedure Summary Date: 04/24/25 Room / Location: [address] Operating Room Anesthesia Start: 729 Anesthesia [...] once all PACU criteria has been met. [facility] 04-24-2025 Note Patient: Anmol Santiago en Procedure Summary Date: 04/24/25 Room / Location: [address] Operating Room Anesthesia Start: 729 Anesthesia [...] opportunity for questions and acknowledgement of understanding. [facility] 04-24-2025 Nurse Note Patient states nobody here to update [facility] 04-24-2025 Note Family Communication Number Called: [phone] Name of Designated Family Inclined Railway Operator: Ronald Given Relationship: brother Phone Call Outcome: I spoke with the individual listed above. Family Inclined Railway Operator Updated on the Following: I updated Ronald on Anmol's surgery. He will rely the message to Ronald's daughter Sumi (phone number provided not functional). [facility] 04-24-2025 Note Airway Date/Time: 04/24/2025 7:37 AM Reason: scheduled Airway not difficult General Information and Staff Patient location during procedure: Procedural Resident/MATCH UP PERSON: Quinten aSlgado APRN - MATCH UP PERSON Performed: MATCH UP PERSON Patient Condition Indications for airway management: anesthesia [...] 23 Number of attempts at approach: 1 [facility] 04-24-2025 Note Patient: Anmol Santiago en Procedure Information Date/Time: 04/24/25729 Procedure: Sacral wound DEBRIDEMENT SKIN SUBCUTANEOUS TISSUE MUSCLE (Bilateral) Location: [address] Operating Room Surgeons: Kaela Durand MD Relevant Problems Cardio (+) Hypertension Neuro/Psych (+) Anxiety Other (+) Other acute osteomyelitis, other site ([facility]) (+) Unspecified osteoarthritis, unspecified site Past Medical [...] Type 2 diabetes mellitus without complication (CMS/HCC) ([facility]) No date: Urinary calculus, unspecified No date: UTI (urinary tract infection) Past Surgical History: Past Surgical History: No date: ANKLE SURGERY; Right Comment: He has a titanium plate to the right ankle No date: KNEE SURGERY; Left Comment: ACL No date: KNEE SURGERY; Left Comment: removal of screw 10/24/2020: LAMINECTOMY; Left Comment: LEFT BILATERAL L2-3-4-5 DECOMPRESSION performed by Opal Vigil MD at [facility] OR No date: ORTHOPEDIC [...] Requests [1] No family history on file. [facility] 04-24-2025 Procedure note OPERATIVE REPORT Date of [...] achieved with bovie electrocautery. Two pieces of Willard patch were placed in the wound bed. [...] x 4 cm = 28 cm2 [CPT 14677, 64784] Open biopsy of left ischium [CPT 91312] This note is electronically signed by: Kaela Durand MD 1:56 PM, 04/25/2025. [facility] 04-24-2025 Plan of care note Problem: [...] monitored and maintained or improved Outcome: Progressing [facility] 04-23-2025 Note Hospitalist Progress Note 04/23/2025 [...] precautions: increase act (more content not included)... [facility] 04-23-2025 Plan of care note Problem: Pain - Adult Goal: Verbalizes/displays adequate comfort level or baseline comfort level Outcome: Progressing Problem: Safety - Adult Goal: Free from fall injury Outcome: Progressing Problem: Chronic Conditions and Co-morbidities Goal: Patient's chronic conditions and co-morbidity symptoms are monitored and maintained or improved Outcome: Progressing [facility] 04-23-2025 Note PHYSICAL THERAPY [facility] Initial Evaluation Name/MRN: Anmol Reynolds ([id number]) Evaluation Date: 04/23/2025 Date of : 1960 Admission Date: 04/21/2025 9:56 PM Age: 64 y.o. Room/Bed: N4-465/N4465 B Discharge Recommendation: Long Term Facility Equipment Needed: No Assessment IMPRESSION: PT eval completed and the pt is at his functional baseline for transfers, ambulation, balance, and bed mobility. No skilled therapy needs at this time. Recommended return to [facility] level therapy upon disch and PT is [...] Anxiety 01/06/2017 Other acute osteomyelitis, other site (HCC) 04/22/2025 Positive blood cultures 05/17/2024 Calculus of ureter 05/06/2024 Bladder calculus 05/05/2024 Pressure injury of coccygeal region, stage 3 ([facility]) 04/20/2024 Septic shock ([facility]) 04/14/2024 Lumbar stenosis with neurogenic claudication 10/24/2020 Spinal stenosis of lumbar region with neurogenic claudication 10/24/2020 Nicotine use disorder 10/15/2020 Unspecified osteoarthritis, unspecified site 10/15/2020 Pilonidal cyst without abscess 10/15/2020 Diabetes mellitus without complication ([facility]) 10/15/2020 Abnormal finding on EKG 10/15/2020 Other [...] x4 Social/Functional History Patient admitted from [facility] . Assistive Equipment: wheelchair - manual and veerett lift Prior Level of Function Prior Level [...] of Care supervision is transferred to a [facility] Therapy Services Physical Therapist. Goals and/or treatment plan was established in collaboration with patient/family/other representatives. [1] Past Medical History: Diagnosis Date Abnormal posture Abscess, perineum Anemia BPH (benign prostatic hyperplasia) Chronic back pain Hem (more content not included)... [facility] 04-23-2025 Note Pharmacy to Dose Van comycin - Progress Note Lab Results Component Value Date CREATININE 0.54 (L) 04/23/2025 BUN 8 (L) 04/23/2025 WBC 9.4 04/23/2025 VANCORANDOM 12.3 (L) 04/16/2024 VANCOTROUGH 12.4 04/22/2025 Doses, serum creatinine, and vancomycin levels interfaced automatically to [employer] and data has been analyzed and interpreted. [...] TIME: 8:13 AM Radha Deal [facility] Clinical Pharmacist Available via Secure Chat [facility] 04-23-2025 Plan of care note Problem: Pain [...] monitored and maintained or improved Outcome: Progressing [facility] 04-22-2025 Consult note Associated Order (s): IP CONSULT TO INFECTIOUS DISEASES Images from the original note were not included. [facility] - Infectious Diseases Attending Consult Note Reason for Consult: 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 History of Present Illness: 64 M with h/o MRSA lumbar epidural abscess from 2021, s/p decompression and fusion, but left paraplegic with neurogenic bladder. Recent hospitlaizaitons for PNA as well as ESBL Proteus UTI/ sepsis recently at [facility]. He had a sacral decubitus ulcer [...] Resource Strain: Low Risk (04/24/2023) Received from [facility] Overall Financial Resource Strain (CARDIA) Difficulty [...] 116 AST 13 ALT 6 Recent Labs 04/21/252256 WBC 12.5* HGB 11.7* HCT 35.6* PLT [...] to Meropenem Impression: 64 M admitted from [facility] with: Worsening decubitus ulcer , concerning for [...] DECOMPRESSION performed by Opal Vigil MD at [facility] OR ORTHOPEDIC SURGERY Right removal of hardware ankle US PLACE URETAL STENT PERC PRE-EXIST TRACT S&I (HISTORICAL) Bilateral 04/14/2024 Dr. Grimm/Bashir [3] Current Facility-Administered Medications Medication Dose Route Frequency Provider Last Rate Last Admin acetaminophen (Tylenol) tablet 650 mg 650 mg Oral q6h PRN Alberto Sanchez Keagan, NSH TEACHER Or acetaminophen (Tylenol) suppository 650 mg 650 mg Rectal q6h PRN Alberto Sanchez Ookala, NSH TEACHER [Held by provider] apixaban (Eliquis) tablet 5 mg 5 mg Oral BID Alberto Sanchez Keagan, NSH TEACHER bisacodyl (Dulcolax) EC tablet 5 mg 5 mg Oral Daily PRN Alberto Sanchez Ookala, NSH TEACHER bisacodyl (Dulcolax) suppository 10 mg 10 mg Rectal Daily PRN Alberto Miltons, NSH TEACHER calcium carbonate (Tums) chewable tablet 1,000 mg 1,000 mg Oral q8h PRN Alberto Sanchez Keagan, NSH TEACHER [START ON 04/23/2025] chlorhexidine (Hibiclens) 4 % solution Topical Daily Alberto Miltons, NSH TEACHER cyclobenzaprine (Flexeril) tablet 10 mg 10 mg Oral TID PRN Alberto Miltons, NSH TEACHER 10 mg at 04/22/25 0624 dextrose 5 % infusion 100 mL/hr IntraVENous PRN Alberto Miltons, NSH TEACHER dextrose 50 % solution 12.5 g 12.5 g IntraVENous PRN Alberto Miltons, NSH TEACHER DULoxetine (Cymbalta) DR capsule 30 mg 30 mg Oral Daily Alberto Sanchez Keagan, NSH TEACHER 30 mg at 04/22/25 0923 ferrous sulfate tablet 325 mg 325 mg Oral Daily with breakfast Alberto Miltons, NSH TEACHER 325 mg at 04/22/25 0921 glucagon (human recombinant) injection 1 mg 1 mg IntraMUSCular PRN Alberto Miltons, NSH TEACHER glucose oral gel 15 g 15 g Oral PRN Alberto Miltons, NSH TEACHER insulin glargine (Lantus) injection 45 Units 45 Units SubCUTAneous q AM Alberto Miltons, NSH TEACHER 45 Units at 04/22/25 0921 Insulin Lispro (Humalog) injection 0-18 Units 0-18 Units SubCUTAneous TID WC Alberto Miltons, NSH TEACHER 9 Units at 04/22/25 0921 And Insulin Lispro (Humalog) injection 0-18 Units 0-18 Units SubCUTAneous Nightly Alberto G Keagan, NSH TEACHER [START ON 04/24/2025] lactated Ringer's infusion 100 mL/hr IntraVENous Continuous Cari Ling MD linaGLIPtin (Tradjenta) tablet 5 mg 5 mg Oral Daily Alberto G Keagan, NSH TEACHER 5 mg at 04/22/25 0946 meropenem (Merrem) 2,000 mg in sodium chloride 0.9 % 100 mL IVPB 2,000 mg IntraVENous q8h Kerwin Ricci DO midodrine (Proamatine) tablet 10 mg 10 mg Oral TID Alberto G Keagan, NSH TEACHER 10 mg at 04/22/25920 mirtazapine (Remeron) tablet 7.5 mg 7.5 mg Oral Nightly Alberto G Keagna, NSH TEACHER naloxone (Narcan) nasal spray 4 mg 4 mg Nasal PRN Alberto G Keagan, NSH TEACHER ondansetron ODT (Zofran-ODT) disintegrating tablet 4 mg 4 mg Oral q8h PRN Alberto G Ookala, NSH TEACHER Or ondansetron (Zofran) injection 4 mg 4 mg IntraVENous q6h PRN Alberto G Keagan, NSH TEACHER oxyCODONE (Roxicodone) immediate release tablet 15 mg 15 mg Oral 4x daily Alberto G Keagan, NSH TEACHER 15 mg at 04/22/25920 polyethylene glycol (PEG) 3350 (Miralax) packet 17 g 17 g Oral BID Alberto G Ookala, NSH TEACHER 17 g at 04/22/25920 polyethylene glycol (PEG) 3350 (Miralax) packet 17 g 17 g Oral Daily PRN Alberto G Ookala, NSH TEACHER pregabalin (Lyrica) capsule 200 mg 200 mg Oral TID Alberto G Keagan, NSH TEACHER 200 mg at 04/22/25919 senna-docusate sodium (Senokot-S) 8.6-50 MG tablet 2 tablet 2 tablet Oral BID Alberto G Keagan, NSH TEACHER 2 tablet at 04/22/25920 sodium chloride 0.9% (NS) flush 10 mL 10 mL IntraCATHeter q12h Ross G Keagan, NSH TEACHER 10 mL at 04/22/25 0634 sodium chloride 0.9% (NS) flush 10 mL 10 mL IntraCATHeter PRN Alberto Boogie NP tamsulosin (Flomax) 24 hr capsule 0.4 mg 0.4 mg Oral Daily Alberto Boogie NP 0.4 mg at 04/22/25 0922 vancomycin IVPB 1500 mg in 250 mL NS (premix) 1,500 mg IntraVENous q12h Alberto Boogie NP [4] No Known Allergies [5] No family history on file. [facility] 04-22-2025 Consult note Associated Order (s): IP CONSULT TO INFECTIOUS DISEASES Images from the original note were not included. [facility] - Infectious Diseases Attending Consult Note Reason for Consult: 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 History of Present Illness: 64 M with h/o MRSA lumbar epidural abscess from 2021, s/p decompression and fusion, but left paraplegic with neurogenic bladder. Recent hospitlaizaitons for PNA as well as ESBL Proteus UTI/ sepsis recently at [facility]. He had a sacral decubitus ulcer [...] Resource Strain: Low Risk (04/24/2023) Received from [facility] Overall Financial Resource Strain (CARDIA) Difficulty [...] to Meropenem Impression: 64 M admitted from [facility] with: Worsening decubitus ulcer , concerning for [...] DECOMPRESSION performed by Opal Vigil MD at [facility] OR ORTHOPEDIC SURGERY Right removal of hardware ankle US PLACE URETAL STENT PERC PRE-EXIST TRACT S&I (HISTORICAL) Bilateral 04/14/2024 Dr. Grimm/Bashir [3] Current Facility-Administered Medications Medication Dose Route Frequency Provider Last Rate Last Admin acetaminophen (Tylenol) tablet 650 mg 650 mg Oral q6h PRN Alberto Boogie, NSH TEACHER Or acetaminophen (Tylenol) suppository 650 mg 650 mg Rectal q6h PRN Alberto Miltons, NSH TEACHER [Held by provider] apixaban (Eliquis) tablet 5 mg 5 mg Oral BID Alberto Miltons, NSH TEACHER bisacodyl (Dulcolax) EC tablet 5 mg 5 mg Oral Daily PRN Alberto Miltons, NSH TEACHER bisacodyl (Dulcolax) suppository 10 mg 10 mg Rectal Daily PRN Alberto Miltons, NSH TEACHER calcium carbonate (Tums) chewable tablet 1,000 mg 1,000 mg Oral q8h PRN Alberto Miltons, NSH TEACHER [START ON 04/23/2025] chlorhexidine (Hibiclens) 4 % solution Topical Daily Alberto Miltons, NSH TEACHER cyclobenzaprine (Flexeril) tablet 10 mg 10 mg Oral TID PRN Alberto Miltons, NSH TEACHER 10 mg at 04/22/25 0624 dextrose 5 % infusion 100 mL/hr IntraVENous PRN Alberto Boogie, NSH TEACHER dextrose 50 % solution 12.5 g 12.5 g IntraVENous PRN Alberto Boogie, NSH TEACHER DULoxetine (Cymbalta) DR capsule 30 mg 30 mg Oral Daily Alberto Boogie, NSH TEACHER 30 mg at 04/22/25 0923 ferrous sulfate tablet 325 mg 325 mg Oral Daily with breakfast Alberto Boogie, NSH TEACHER 325 mg at 04/22/25920 glucagon (human recombinant) injection 1 mg 1 mg IntraMUSCular PRN Alberto Miltons, NSH TEACHER glucose oral gel 15 g 15 g Oral PRN Alberto Miltons, NSH TEACHER insulin glargine (Lantus) injection 45 Units 45 Units SubCUTAneous q AM Alberto Boogie, NSH TEACHER 45 Units at 04/22/25920 Insulin Lispro (Humalog) injection 0-18 Units 0-18 Units SubCUTAneous TID WC Alberto Miltons, NSH TEACHER 9 Units at 04/22/25920 And Insulin Lispro (Humalog) injection 0-18 Units 0-18 Units SubCUTAneous Nightly Alberto Sanchez Keagan, NSH TEACHER [START ON 04/24/2025] lactated Ringer's infusion 100 mL/hr IntraVENous Continuous Cari Ling MD linaGLIPtin (Tradjenta) tablet 5 mg 5 mg Oral Daily Ross G Ookala, NSH TEACHER 5 mg at 04/22/25 0946 meropenem (Merrem) 2,000 mg in sodium chloride 0.9 % 100 mL IVPB 2,000 mg IntraVENous q8h Kerwin Ricci DO midodrine (Proamatine) tablet 10 mg 10 mg Oral TID Ross G Keagan, NSH TEACHER 10 mg at 04/22/25 0921 mirtazapine (Remeron) tablet 7.5 mg 7.5 mg Oral Nightly Ross G Ookala, NSH TEACHER naloxone (Narcan) nasal spray 4 mg 4 mg Nasal PRN Ross G Ookala, NSH TEACHER ondansetron ODT (Zofran-ODT) disintegrating tablet 4 mg 4 mg Oral q8h PRN Ross G Ookala, NSH TEACHER Or ondansetron (Zofran) injection 4 mg 4 mg IntraVENous q6h PRN Ross G Ookala, NSH TEACHER oxyCODONE (Roxicodone) immediate release tablet 15 mg 15 mg Oral 4x daily Ross G Keagan, NSH TEACHER 15 mg at 04/22/25 0921 polyethylene glycol (PEG) 3350 (Miralax) packet 17 g 17 g Oral BID Ross G Keagan, NSH TEACHER 17 g at 04/22/25 0921 polyethylene glycol (PEG) 3350 (Miralax) packet 17 g 17 g Oral Daily PRN Ross G Ookala, NSH TEACHER pregabalin (Lyrica) capsule 200 mg 200 mg Oral TID Ross G Ookala, NSH TEACHER 200 mg at 04/22/25 0920 senna-docusate sodium (Senokot-S) 8.6-50 MG tablet 2 tablet 2 tablet Oral BID Ross G Keagan, NSH TEACHER 2 tablet at 04/22/25 0921 sodium chloride 0.9% (NS) flush 10 mL 10 mL IntraCATHeter q12h Ross G Keagan, NSH TEACHER 10 mL at 04/22/25 0634 sodium chloride 0.9% (NS) flush 10 mL 10 mL IntraCATHeter PRN Ross G Ookala, NSH TEACHER tamsulosin (Flomax) 24 hr capsule 0.4 mg 0.4 mg Oral Daily Ross G Ookala, NSH TEACHER 0.4 mg at 04/22/25 0922 vancomycin IVPB 1500 mg in 250 mL NS (premix) 1,500 mg IntraVENous q12h Alberto Daniel TREVOR Boogie [4] No Known Allergies [5] No family history on file. Associated Order(s): IP CONSULT TO GENERAL SURGERY Images from the original note were not included. Department of General Surgery Surgical Service - ACS Resident Consult Note 04/22/2025 CHIEF COMPLAINT: Chief Complaint Patient presents with Wound Infection Per EMS pt was sent here from [facility] for wound infections. Pt has two wound [...] s/p surgical complication with Dr. Ashley at [facility], HLD, HTN, MDD, OA, a-fib on [...] Narrative: Patient Name: ANMOL REYNOLDS : [address] [facility]#: [id number] Exam Date/Time: 04/22/2025 00:01 Procedure: CT PELVIS [...] This note may have been dictated using [employer] Medical Practice Edition 2.6 and/or [employer] Voice Recognition Feature. The document was proofread; however, unrecognized voice recognition director cpg errors may be present. [1] Past Medical [...] DECOMPRESSION performed by Opal Vigil MD at [facility] OR ORTHOPEDIC SURGERY Right [...] tablet 5 mg 5 mg Oral BID Ross G Ookala, NSH TEACHER bisacodyl (Dulcolax) EC tablet 5 mg 5 mg Oral Daily PRN Alberto Miltons, NSH TEACHER bisacodyl (Dulcolax) suppository 10 mg 10 mg Rectal Daily PRN Alberto Miltons, NSH TEACHER calcium carbonate (Tums) chewable tablet 1,000 mg 1,000 mg Oral q8h PRN Alberto Miltons, NSH TEACHER cefepime (Maxipime) 2,000 mg in sodium chloride 0.9 % 50 mL IVPB Mini-Bag Plus 2,000 mg IntraVENous q8h Alberto Miltons, NSH TEACHER cyclobenzaprine (Flexeril) tablet 10 mg 10 mg Oral TID PRN Alberto Miltons, NSH TEACHER dextrose 5 % infusion 100 mL/hr IntraVENous PRN Alberto Miltons, NSH TEACHER dextrose 50 % solution 12.5 g 12.5 g IntraVENous PRN Alberto Miltons, NSH TEACHER DULoxetine (Cymbalta) DR capsule 30 mg 30 mg Oral Daily Alberto Miltons, NSH TEACHER ferrous sulfate tablet 325 mg 325 mg Oral Daily with breakfast Alberto Boogie, NSH TEACHER glucagon (human recombinant) injection 1 mg 1 mg IntraMUSCular PRN Alberto Miltons, NSH TEACHER glucose oral gel 15 g 15 g Oral PRN Alberto Miltons, NSH TEACHER insulin glargine (Lantus) injection 45 Units 45 Units SubCUTAneous q AM Alberto Miltons, NSH TEACHER Insulin Lispro (Humalog) injection 0-18 Units 0-18 Units SubCUTAneous TID WC Alberto Miltons, NSH TEACHER And Insulin Lispro (Humalog) injection 0-18 Units 0-18 Units SubCUTAneous Nightly Alberto Miltons, NSH TEACHER linaGLIPtin (Tradjenta) tablet 5 mg 5 mg Oral Daily Alberto Sanchez Keagan, NSH TEACHER midodrine (Proamatine) tablet 10 mg 10 mg Oral TID Alberto Miltons, NSH TEACHER mirtazapine (Remeron) tablet 7.5 mg 7.5 mg Oral Nightly Alberto Miltons, NSH TEACHER naloxone (Narcan) nasal spray 4 mg 4 mg Nasal PRN Alberto Miltons, NSH TEACHER ondansetron ODT (Zofran-ODT) disintegrating tablet 4 mg 4 mg Oral q8h PRN Alberto Miltons, NSH TEACHER Or ondansetron (Zofran) injection 4 mg 4 mg IntraVENous q6h PRN Alberto Boogie TREVOR oxyCODONE (Roxicodone) immediate release tablet 15 mg 15 mg Oral 4x daily Alberto Boogie NP polyethylene glycol (PEG) 3350 [...] Resource Strain: Low Risk (04/24/2023) Received from [facility] Overall Financial Resource Strain (CARDIA) Difficulty [...] Surgery Division of Trauma Department of Surgery [facility] [1] Patient Active Problem List [...] creatinine, and vancomycin levels interfaced automatically to [employer] and data has been analyzed and interpreted. [...] via Secure Chat documented in this encounter [facility] 04-22-2025 Note Hospitalist Progress Note 04/22/2025 [...] intensive monitoring: parenteral (more content not included)... [facility] 04-22-2025 Plan of care note Problem: Pain [...] monitored and maintained or improved Outcome: Progressing [facility] 04-22-2025 Note Pharmacy to Dose Van comycin - Progress Note Lab Results Component Value Date CREATININE 0.65 (L) 04/21/2025 BUN 10 04/21/2025 WBC 12.5 (H) 04/21/2025 VANCORANDOM 12.3 (L) 04/16/2024 VANCOTROUGH 12.4 04/22/2025 Doses, serum creatinine, and vancomycin levels interfaced automatically to [employer] and data has been analyzed and interpreted. [...] PharmD Clinical Pharmacist Available via Secure Chat [facility] 04-22-2025 Plan of care note Problem: Pain [...] monitored and maintained or improved Outcome: Progressing [facility] 04-22-2025 Consult note Associated Order (s): IP CONSULT TO GENERAL SURGERY Images from the original note were not included. Department of General Surgery Surgical Service - [facility] Resident Consult Note 04/22/2025 CHIEF COMPLAINT: Chief Complaint Patient presents with Wound Infection Per EMS pt was sent here from the [facility] for wound infections. Pt has two wound [...] [facility], [facility], HTN, MDD, OA, a-fib on eliquis, [...] Narrative: Patient Name: ANMOL REYNOLDS [facility] 1960 [id number] Exam Date/Time: 04/22/2025 00:01 Procedure: CT PELVIS [...] This note may have been dictated using [employer] Practice Edition 2.6 and/or [employer] Voice Recognition Feature. The document was proofread; however, unrecognized voice recognition director cpg errors may be present. [1] Past Medical [...] DECOMPRESSION performed by Opal Vigil MD at [facility] OR ORTHOPEDIC SURGERY Right removal of hardware ankle US PLACE URETAL STENT PERC PRE-EXIST TRACT S&I (HISTORICAL) Bilateral 04/14/2024 Dr. Grimm/Bashir [3] Current Facility-Administered Medications Medication Dose Route Frequency Provider Last Rate Last Admin acetaminophen (Tylenol) tablet 650 mg 650 mg Oral q6h PRN Alberto Boogie, NSH TEACHER Or acetaminophen (Tylenol) suppository 650 mg 650 mg Rectal q6h PRN Alberto Boogie, NSH TEACHER [Held by provider] apixaban (Eliquis) tablet 5 mg 5 mg Oral BID Alberto Boogie, NSH TEACHER bisacodyl (Dulcolax) EC tablet 5 mg 5 mg Oral Daily PRN Alberto Boogie, NSH TEACHER bisacodyl (Dulcolax) suppository 10 mg 10 mg Rectal Daily PRN Alberto Boogie, NSH TEACHER calcium carbonate (Tums) chewable tablet 1,000 mg 1,000 mg Oral q8h PRN Alberto Boogie, NSH TEACHER cefepime (Maxipime) 2,000 mg in sodium chloride 0.9 % 50 mL IVPB Mini-Bag Plus 2,000 mg IntraVENous q8h Alberto Boogie, TREVOR cyclobenzaprine (Flexeril) tablet 10 mg 10 mg Oral TID PRN Alberto Boogie, NSH TEACHER dextrose 5 % infusion 100 mL/hr IntraVENous PRN Alberto Boogie, NSH TEACHER dextrose 50 % solution 12.5 g 12.5 g IntraVENous PRN Alberto Boogie, NSH TEACHER DULoxetine (Cymbalta) DR capsule 30 mg 30 mg Oral Daily Alberto Boogie, NSH TEACHER ferrous sulfate tablet 325 mg 325 mg Oral Daily with breakfast Alberto Boogie, NSH TEACHER glucagon (human recombinant) injection 1 mg 1 mg IntraMUSCular PRN Alberto Boogie, NSH TEACHER glucose oral gel 15 g 15 g Oral PRN Alberto Boogie, NSH TEACHER insulin glargine (Lantus) injection 45 Units 45 Units SubCUTAneous q AM Alberto Boogie, NSH TEACHER Insulin Lispro (Humalog) injection 0-18 Units 0-18 Units SubCUTAneous TID WC Alberto Miltons, NSH TEACHER And Insulin Lispro (Humalog) injection 0-18 Units 0-18 Units SubCUTAneous Nightly Alberto Boogie, NSH TEACHER linaGLIPtin (Tradjenta) tablet 5 mg 5 mg Oral Daily Alberto Boogie, NSH TEACHER midodrine (Proamatine) tablet 10 mg 10 mg Oral TID Alberto Boogie, NSH TEACHER mirtazapine (Remeron) tablet 7.5 mg 7.5 mg Oral Nightly Alberto Boogie, TREVOR naloxone (Narcan) nasal spray 4 mg 4 mg Nasal PRN Alberto BoogieTREVOR ondansetron ODT (Zofran-ODT) disintegrating tablet 4 mg 4 mg Oral q8h PRN Alberto Sanchez TREVOR Boogie Or ondansetron (Zofran) injection 4 mg 4 mg IntraVENous q6h PRN Alberto Sanchez TREVOR Boogie oxyCODONE (Roxicodone) immediate release tablet 15 mg 15 mg Oral 4x daily Alberto MiltonTREVOR najera polyethylene glycol (PEG) 3350 (Miralax) packet 17 g 17 g Oral BID Alberto MiltonTREVOR najera polyethylene glycol (PEG) 3350 (Miralax) packet 17 g 17 g Oral Daily PRN Alberto Sanchez TREVOR Boogie pregabalin (Lyrica) capsule 200 mg 200 mg Oral TID Alberto MiltonTREVOR najera senna-docusate sodium (Senokot-S) 8.6-50 MG tablet 2 [...] Resource Strain: Low Risk (04/24/2023) Received from [facility] Overall Financial Resource Strain (CARDIA) Difficulty [...] exam and evaluation Meliton Carrero MD, [facility] Trauma, Surgical Critical Care & Acute Care Surgery Division of Trauma Department of Surgery [facility] [1] Patient Active Problem List [...] cultures Other acute osteomyelitis, other site (HCC) [facility] 04-22-2025 Consult note Formatting of th [...] creatinine, and vancomycin levels interfaced automatically to [employer] and data has been analyzed and interpreted. [...] RPh Clinical Pharmacist Available via Secure Chat [facility] [employer] 04-22-2025 History and physical note Attending History and Physical Admit Date: 04/21/2025 PCP: Tab Dupont CHIEF COMPLAINT: Wound infection Reason for Admission: Osteomyelitis History Obtained From: patient HISTORY OF PRESENT ILLNESS: Anmol is a 64 y.o. male with past medical history below who presents with chief complaint listed above. Patient sent to [facility] ER by [facility] staff to leave the patient's wounds on his sacrum were worsening and becoming infected. Patient is a paraplegic for the last 4 years after surgical complication with Dr. Ashley at [facility]. ER workup was significant for sodium [...] Resource Strain: Low Risk (04/24/2023) Received from [facility] Overall Financial Resource Strain (CARDIA) Difficulty of Paying Living Expenses: Not hard at all Food Insecurity: No Food Insecurity (02/17/2025) Received from [facility] Hunger Vital Sign Worried About Running Out of Food in the Last Year: Never true Ran Out of Food in the Last Year: Never true Transportation Needs: No Transportation Needs (02/17/2025) Received from [facility] PRAPARE - Transportation Lack of Transportation (Medical): No Lack of Transportation (Non-Medical): No Physical Activity: Not on file Stress: Not on file Social Connections: Not on file Intimate Partner Violence: Not At Risk (05/18/2024) Humiliation, Afraid, Rape, and Kick questionnaire Fear of Current or Ex-Partner: No Emotionally Abused: No Physically Abused: No Sexually Abused: No Housing Stability: Unknown (02/17/2025) Received from [facility] Housing Stability Vital Sign Unable to [...] Franco Gail : 1960 Primary Care Physician: Peter Katsaros The patient and/or family/surrogate voluntarily agreed to participate in ACP services. Patient s cognitive capacity: Alert and oriented x 4 Code Status: [X] [FULL CODE - Continue all advanced life support: CPR,intubation,invasive procedures] [_] [DNR-CCA - DO NOT do CPR, intubation] [_] [DNR-PHOTOGRAPHIC ENLARGER OPERATOR - Comfort care only] [_] DNR form [...] DECOMPRESSION performed by Opal Vigil MD at [facility] OR ORTHOPEDIC SURGERY Right [...] treatment as noted above. Mike Bueno MD [facility] [employer] Work Phone: 04-22-2025 Note Attestation signed by [...] chief complaint listed above. Patient sent to [facility] ER [facility] to leave the patient's wounds on his sacrum were worsening and becoming infected. Patient is a paraplegic for the last 4 years after surgical complication with Dr. Ashley at [facility]. ER workup was significant for sodium [...] Resource Strain: Low Risk (04/24/2023) Received from [facility] Overall Financial Resource Strain (CARDIA) Difficulty of Paying Living Expenses: Not hard at all Food Insecurity: No Food Insecurity (02/17/2025) Received from [facility] Hunger Vital Sign Worried About Running Out of Food in the Last Year: Never true Ran Out of Food in the Last Year: Never true Transportation Needs: No Transportation Needs (02/17/2025) Received from [facility] PRAPARE - Transportation Lack of Transportation (Medical): No Lack of Transportation (Non-Medical): No Physical Activity: Not on file Stress: Not on file Social Connections: Not on file Intimate Partner Violence: Not At Risk (05/18/2024) Humiliation, Afraid, Rape, and Kick questionnaire Fear of Current or Ex-Partner: No Emotionally Abused: No Physically Abused: No Sexually Abused: No Housing Stability: Unknown (02/17/2025) Received from [facility] Housing Stability Vital Sign Unable to [...] Normal rate a (more content not included)... [facility] 04-22-2025 History and physical note Attending History and Physical Admit Date: 04/21/2025 PCP: Tab Dupont CHIEF COMPLAINT: Wound infection Reason for Admission: Osteomyelitis History Obtained From: patient HISTORY OF PRESENT ILLNESS: Anmol is a 64 y.o. male with past medical history below who presents with chief complaint listed above. Patient sent to [facility] ER [facility] staff to leave the patient's wounds on his sacrum were worsening and becoming infected. Patient is a paraplegic for the last 4 years after surgical complication with Dr. Ashley at [facility]. ER workup was significant for sodium [...] Resource Strain: Low Risk (04/24/2023) Received from [facility] Overall Financial Resource Strain (CARDIA) Difficulty of Paying Living Expenses: Not hard at all Food Insecurity: No Food Insecurity (02/17/2025) Received from [facility] Hunger Vital Sign Worried About Running Out of Food in the Last Year: Never true Ran Out of Food in the Last Year: Never true Transportation Needs: No Transportation Needs (02/17/2025) Received from [facility] PRAPARE - Transportation Lack of Transportation (Medical): No Lack of Transportation (Non-Medical): No Physical Activity: Not on file Stress: Not on file Social Connections: Not on file Intimate Partner Violence: Not At Risk (05/18/2024) Humiliation, Afraid, Rape, and Kick questionnaire Fear of Current or Ex-Partner: No Emotionally Abused: No Physically Abused: No Sexually Abused: No Housing Stability: Unknown (02/17/2025) Received from [facility] Housing Stability Vital Sign Unable to [...] - DO NOT do CPR, intubation] [_] [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 Grimm/Bashir [3] No family history on file. [4] Current Facility-Administered Medications: vancomycin IVPB 1500 mg in 250 mL NS (premix), 1,500 mg, IntraVENous, Once, Chele León MD, Last Rate: 125 mL/hr at 04/22/257, 1,500 mg at 04/22/25 0027 Current Outpatient [...] Mike Bueno MD documented in this encounter [facility] 04-21-2025 Emergency department Note Placed new meplix pads on open wounds on sacrum. Pictures updated in pt's chart. [facility] 04-21-2025 Emergency department Note Placed new meplix pads on open wounds on sacrum. Pictures updated in pt's chart. EMERGENCY DEPARTMENT ENCOUNTER Pt Name: Anmol Reynolds Birthdate 1960 Date of evaluation: 04/21/2025 ED Provider: Chele León MD CHIEF COMPLAINT Chief Complaint Patient presents with Wound Infection Per EMS pt was sent here from the [facility] for wound infections. Pt has two wound [...] Family History[3] SOCIAL HISTORY Social History[4] SCREENINGS Am[place]on Coma Scale Best Eye Response: Spontaneous Best [...] Procedure Abnormality Status --------- ------ Culture, Aerobic Bacteri...[[id number]] Abnormal Preliminary result Anaerobic culture[[id number]] In process Please view results for these [...] DECOMPRESSION performed by Opal Vigil MD at [facility] OR ORTHOPEDIC SURGERY Right [...] Resource Strain: Low Risk (04/24/2023) Received from [facility] Overall Financial Resource Strain (CARDIA) Difficulty of Paying Living Expenses: Not hard at all Food Insecurity: No Food Insecurity (02/17/2025) Received from [facility] Hunger Vital Sign Worried About Running Out of Food in the Last Year: Never true Ran Out of Food in the Last Year: Never true Transportation Needs: No Transportation Needs (02/17/2025) Received from [facility] PRAPARE - Transportation Lack of Transportation (Medical): No Lack of Transportation (Non-Medical): No Intimate Partner Violence: Not At Risk (05/18/2024) Humiliation, Afraid, Rape, and Kick questionnaire Fear of Current or Ex-Partner: No Emotionally Abused: No Physically Abused: No Sexually Abused: No Housing Stability: Unknown (02/17/2025) Received from [facility] Housing Stability Vital Sign Unable to Pay for Housing in the Last Year: No Homeless in the Last Year: No Chele León MD Resident 04/22/25 0219 Cosigned by Brad Campos MD at 04/22/2025 2:22 AM EDT documented in this encounter [facility] 04-21-2025 Physician Emergency department Note EMERGENCY DEPARTMENT ENCOUNTER Pt Name: Anmol Reynolds Birthdate 1960 Date of evaluation: 04/21/2025 ED Provider: Chele León MD CHIEF COMPLAINT Chief Complaint Patient presents with Wound Infection Per EMS pt was sent here from the [facility] for wound infections. Pt has two wound [...] Family History[3] SOCIAL HISTORY Social History[4] SCREENINGS Amidon Coma Scale Best Eye Response: Spontaneous Best Verbal Response: Oriented Best Motor Response: Follows commands Amidon Coma Scale Score: 15 PHYSICAL EXAM ED [...] Procedure Abnormality Status --------- ------ Culture, Aerobic Bacteri...[[id number]] Abnormal Preliminary result Anaerobic culture[[id number]] In process Please view results for these [...] DECOMPRESSION performed by Opal Vigil MD at [facility] OR ORTHOPEDIC SURGERY Right [...] Resource Strain: Low Risk (04/24/2023) Received from [facility] Overall Financial Resource Strain (CARDIA) Difficulty of Paying Living Expenses: Not hard at all Food Insecurity: No Food Insecurity (02/17/2025) Received from [facility] Hunger Vital Sign Worried About Running Out of Food in the Last Year: Never true Ran Out of Food in the Last Year: Never true Transportation Needs: No Transportation Needs (02/17/2025) Received from [facility] PRAPARE - Transportation Lack of Transportation (Medical): No Lack of Transportation (Non-Medical): No Intimate Partner Violence: Not At Risk (05/18/2024) Humiliation, Afraid, Rape, and Kick questionnaire Fear of Current or Ex-Partner: No Emotionally Abused: No Physically Abused: No Sexually Abused: No Housing Stability: Unknown (02/17/2025) Received from [facility] Housing Stability Vital Sign Unable to Pay for Housing in the Last Year: No Homeless in the Last Year: No Chele León MD Resident 04/22/25 0219 Cosigned by Brad Campos MD at 04/22/2025 2:22 AM EDT [facility] 04-21-2025 Physician Emergency department Note Patient: [...] EMS pt was sent here from the [facility] for wound infections. Pt has two wound [...] Response: Oriented Best Motor Response: Follows commands Amidon Coma Scale Score: 15 PHYSICAL EXAM ED [...] Procedure Abnormality Status --------- ------ Culture, Aerobic Bacteri...[[id number]] Abnormal Preliminary result Anaerobic culture[[id number]] In process Please view results for these [...] DECOMPRESSION performed by Opal Vigil MD at [facility] OR ORTHOPEDIC SURGERY Right [...] Resource Strain: Low Risk (04/24/2023) Received from [facility] Overall Financial Resource Strain (CARDIA) Difficulty of Paying Living Expenses: Not hard at all Food Insecurity: No Food Insecurity (02/17/2025) Received from [facility] Hunger Vital Sign Worried About Running Out of Food in the Last Year: Never true Ran Out of Food in the Last Year: Never true Transportation Needs: No Transportation Needs (02/17/2025) Received from [facility] PRAPARE - Transportation Lack of Transportation (Medical): No Lack of Transportation (Non-Medical): No Intimate Partner Violence: Not At Risk (05/18/2024) Humiliation, Afraid, Rape, and Kick questionnaire Fear of Current or Ex-Partner: No Emotionally Abused: No Physically Abused: No Sexually Abused: No Housing Stability: Unknown (02/17/2025) Received from [facility] Housing Stability Vital Sign Unable to Pay for Housing in the Last Year: No Homeless in the Last Year: No Brad Campos MD 04/22/25 0201 [employer] Work Phone: 03-24-2025 Telephone encounter Note Per op note pt should get a renal US in [address]. [address] the order? [facility] 03-24-2025 Miscellaneous Notes Per op note pt should get a renal US in [address] the order? documented in this encounter [facility] 03-20-2025 Note HNO ID: [id number] Author: JAX VALENZUELA APRN.MATCH UP PERSON Service: Anesthesiology Author Type: Nurse Diffusion Furnace Operator Type: Anesthesia Procedure Notes Filed: 03/20/2025 10:33 [...] Imaging Guidance Used: No SIGNATURE: Jax Valenzuela APRN.MATCH UP PERSON PATIENT NAME: Anmol Araujo Given DATE: March 20, 2025 TIME: 10:32 AM CSN: [id number] [facility] 03-20-2025 Note HNO ID: [id number] Author: JAX VALENZUELA APRN.MATCH UP PERSON Service: Anesthesiology Author Type: Nurse Diffusion Furnace Operator Type: Anesthesia Procedure Notes Filed: 03/20/2025 10:32 Note Text: ANESTHESIOLOGY PROCEDURE NOTE Airway General Information Procedure Start Time/Medication Administration: 03/20/2025 10:27 AM Procedure End Time: 03/20/2025 10:27 AM Patient location during procedure: OR Consent Obtained: Yes Patient identity confirmed: arm band and patient Staffing MATCH UP PERSON: Jax Valenzuela APRN.MATCH UP PERSON Performed by: MATCH UP PERSON Indications and Patient Condition Indications for airway management: anesthesia Preoxygenated: yes anesthesia circuit Patient position: sniffing Method: asleep Difficult Mask: No Final Airway Details Final airway type: supraglottic airway Final Supraglottic Airway: i-gel Size 5 Seal Adequate: yes Failed airway: no Airway not difficult SIGNATURE: Jax Valenzuela APRN.CRNA PATIENT NAME: Anmol Araujo Given DATE: March 20, 2025 TIME: 10:32 AM CSN: [id number] [facility] 03-15-2025 Telephone encounter Note Spoke to nursing facility who states Pt is going to proceed with surgery at [facility]. [facility] 03-15-2025 Miscellaneous Notes Spoke to nursing facility who states Pt is going to proceed with surgery at [facility]. Left message for Pts nurse to call me back. Can you call [facility] and see if they are going to send disc to us? Or if patient still scheduled for procedure at [facility]. [facility] number: [phone] Still need disc with images. Will need to review with Dr. Grimm. Is it OK to get Pt scheduled for surgery? Please advise. [facility]ed to [facility] that patient would like to have procedure at [facility]. Requested that CD with images from [facility] be sent to [facility]. Staff will let Farideh know- she does scheduling/arranges procedures for residents. [facility] number: [phone] documented in this encounter [facility] 03-15-2025 Telephone encounter Note Left message for Pts nurse to call me back. [facility] 03-14-2025 Note HNO ID: [id number] Author: MILAD GOODSON MD Service: ? Author Type: Physician Type: Progress Notes Filed: 03/20/2025 10:37 Note Text: INFECTIOUS DISEASE WOUND CENTER NOTE Patient Name: Anmol Reynolds Date: 03/14/2025 ASSESSMENT: Worsening ischial wound post hospitalization at [facility] recently Chronic sacral S5 segment chronic [...] clinical infection in the area Wound center QUALITY AUDIT REPRESENTATIVE follow up in 1 week INTERVAL HISTORY: ROS done with pt and negative unless stated. Was recently admitted to [facility] and needed intubation and ventilation. Since [...] 11/25/2021 8 09/06/2021 (more content not included)... [facility] 03-14-2025 History of Present illness Narrative Images from the original note were not included. INFECTIOUS DISEASE WOUND CENTER NOTE Patient Name: Anmol Reynolds Date: 03/14/2025 ASSESSMENT: Worsening ischial wound post hospitalization at [facility] recently Chronic sacral S5 segment chronic [...] clinical infection in the area Wound center QUALITY AUDIT REPRESENTATIVE follow up in 1 week INTERVAL HISTORY: ROS done with pt and negative unless stated. Was recently admitted to [facility] and needed intubation and ventilation. Since [...] with multiple staff Home Care Company/Nursing Facility: [facility] Consent captured for debridement per (Provider) and good until Special Instructions (for example, patient stands at the bedside for exam/dressing): bed Anticoagulant Therapy: Eliquis Living Situation (ie... Apartment, house, [facility] Who lives with patient: facility Who will [...] BY PROVIDER: Anesthetic Used: N/A applied per warehouse unloader # 1 & 2 Other procedure: Specimen [...] order date DME: [employer] , PH: [phone] SPECIAL NEEDS: EFax orders to [facility] [phone] Emotional support N/A OR set-up N/A Culinary Intern N/A Incontinence needs N/A DISCHARGED in stable [...] be drawn PARI and results faxed to [facility] [phone] Stop smoking EDUCATION: The patient/family was instructed [...] the [facility] documented in this encounter [facility] 03-14-2025 Instructions Dawood Tiwari RN - 03/14/2025 2:16 PM EDT WOUND CARE INSTRUCTIONS- Anmol Reynolds Wound location: sacrum & left ischium [facility] Wound Cleansing: -Gather supplies -Place down [...] following changes to the Wound Center at [phone] or go to the Emergency Department: Fever or chills Increased drainage Green or yellow drainage Foul odor Increased pain Hardness around the wound Redness, warmth or swelling of the surrounding tissue Color change to the wound When contacting the wound center at the ([phone]): Leave a message that includes your full [...] PARI and results faxed to [facility] [phone] Stop smoking Milad Goodson MD/mjmina/lt documented in this encounter [facility] 03-14-2025 Note HNO ID: [id number] Author: DAWOOD TIWARI RN Service: ? Author Type: Registered Nurse Type: Progress Notes Filed: 03/14/2025 14:54 Note Text: Nursing Documentation Pertinent Medical History: paraplegia, MRSA, osteomyelitis, UTI, DM2, neuropathy, pyelonephritis, Wound Etiology according to patient: sacrum wound has had for four years per pt Patient arrived via: self in motorized wheelchair - patient is a [place] with multiple staff Home Care Company/Nursing Facility: [facility] Consent captured for debridement per (Provider) and good until Special Instructions (for example, patient stands at the bedside for exam/dressing): bed Anticoagulant Therapy: Eliquis Living Situation (ie... Apartment, house, [place] Who [facility] patient: facility Who will [...] BY PROVIDER: Anesthetic Used: N/A applied per warehouse unloader # 1 AND 2 Other procedure: Specimen [...] order date DME: [employer] , PH: [phone] [facility]S: [facility] [phone] Emotional support N/A OR set-up N/A Culinary Intern N/A Incontinence needs N/A DISCHARGED in stable [...] be drawn PARI and results faxed to [facility] [phone] Stop smoking EDUCATION: The patient/family was instructed [...] Yes to ALL questions above, consult the [facility] 5. Has the patient been diagnosed with osteomyelitis? Yes 6. Has the patient had a previous skin graft or flap at the wound? No 7. Has the patient had or been offered vascular intervention/evaluation? Yes 8. Does the patient have a wound at an amputation site? No 9. Has the patient had radiation therapy (more content not included)... [facility] 03-14-2025 Note Can you call [facility] and see if they are going to send disc to us? Or if patient still scheduled for procedure at [facility]. [facility] number: [phone] [facility] 03-14-2025 Telephone encounter Note Can you call [facility] and see if they are going to send disc to us? Or if patient still scheduled for procedure at [facility]. [facility] number: [phone] [facility] [employer] Work Phone: 03-14-2025 Miscellaneous Notes Can you call [facility] and see if they are going to send disc to us? Or if patient still scheduled for procedure at [facility]. [facility] number: [phone] Still need disc with images. Will need to review with Dr. Grimm. Is it OK to get Pt scheduled for surgery? Please advise. Talked to staff from [facility] that patient would like to have procedure at [facility]. Requested that CD with images from [facility] be sent to [facility]. Staff will let Farideh know- she does scheduling/arranges procedures for residents. [facility] number: [phone] documented in this encounter [facility] 03-13-2025 Telephone encounter Note Still need disc with images. Will need to review with Dr. Grimm. [facility] Work Phone: 03-13-2025 Miscellaneous Notes Still need disc with images. Will need to review with Dr. Grimm. Is it OK to get Pt scheduled for surgery? Please advise. Talked to staff from [facility] that patient would like to have procedure at [facility]. Requested that CD with images from [facility] be sent to [facility]. Staff will let Farideh know- she does scheduling/arranges procedures for residents. [facility] number: [phone] documented in this encounter [facility] 03-13-2025 Telephone encounter Note Is it OK to get Pt scheduled for surgery? Please advise. [facility] 03-08-2025 Telephone encounter Note Patient is scheduled and longterm was notified. Information was faxed. Comfort Sotelo [facility] 03-08-2025 Miscellaneous Notes Patient is scheduled and longterm was notified. Information was faxed. Comfort Sotelo Needs outpt cysto, pyelograms, bilateral stent change vs removal in 2-3 weeks. documented in this encounter [facility] 03-07-2025 Note Talked to staff from [facility] that patient would like to have procedure at [facility]. Requested that CD with images from [facility] be sent to [facility]. Staff will let Farideh know- she does scheduling/arranges procedures for residents. [facility] number: [phone] [facility] 03-07-2025 Telephone encounter Note Talked to staff from [facility] that patient would like to have procedure at [facility]. Requested that CD with images from [facility] be sent to [facility]. Staff will let Farideh know- she does scheduling/arranges procedures for residents. [facility]: [phone] [facility] 03-07-2025 Miscellaneous Notes Talked to staff from [facility] that patient would like to have procedure at [facility]. Requested that CD with images from [facility] be sent to [facility]. Staff will let Farideh know- she does scheduling/arranges procedures for residents. [facility] number: [phone] documented in this encounter [facility] 03-07-2025 History of Present illness Narrative Images from the original note were not included. JOE Burks CNP 03/07/2025 9:15 AM Urology Office Visit [facility] [address], [address] [facility] [id number] PATIENT NAME: Anmol Franco Given DATE OF [...] negative rods. Treated. Follow up outpatient with [facility] urology Patient is scheduled for surgery w Dr Maria on 03/20/25 however he prefers treatment at [facility] Will need images for surgery planning. [...] 8. Details above. 9. Follow-up as indicated. [facility] Lab Technician: PSCB Transcribe Date/Time: Feb 16 2025 10:02P Dictated by : CORBIN PERRY MD This examination was interpreted and the report reviewed and electronically signed by: CORBIN PERRY MD on Feb 16 2025 10:34PM EST Narrative * * *Final Report* * * DATE OF EXAM: Feb 16 2025 8:33PM [facility] 0530 - CT ABD/PEL W IVCON [...] - Will work on getting images from [facility] - Anticipate procedure with stent exchange (ESWL vs laser litho). Discussed risk and benefits of both procedures with patient. Agreeable to proceed with whichever procedure is indicated from imaging and review with surgeon. All patient questions answered. Patient voiced understanding. Patient agreed with treatment plan. Discussed adverse effects and side effects of medication treatment. Follow up: No follow-ups on file. JOE Burks CNP [facility] U[facility] Please note that portions of this chart were dictated using [employer] electronic voice recognition software. It is possible [...] DECOMPRESSION performed by Opal Vigil MD at [facility] OR ORTHOPEDIC SURGERY Right removal of hardware ankle US PLACE URETAL STENT PERC PRE-EXIST TRACT S&I (HISTORICAL) Bilateral 04/14/2024 Dr. Grimm/Bashir [3] No Known Allergies documented in this encounter [facility] 03-07-2025 Instructions JOE Burks CNP - 03/07/2025 9:00 AM EDT Need images from [facility] on disc brought to office for review in order for patient to have ureteral stent treatment at [facility]. Patient prefers [facility]. CT abdomen/pelvis 02/16/25 XR abdomen 02/16/25 and 02/17/25 Planning for ESWL vs laser litho w stent exchange. documented in this encounter [facility] 02-22-2025 Note HNO ID: [id number] Author: JESSICA CLEMENT RPh Service: Pharmacy Author [...] time from discharge medication list. Jessica Clement cathy Pager: [phone] 02/22/2025 3:26 PM Medication List START taking [...] 100 unit/mL solution Generic drug: insulin glargine-yfgn [facility] 02-22-2025 Note HNO ID: [id number] Author: ANDREA PALENCIA RN Service: Care Management Author Type: Registered Nurse Type: Care Mgt Progress Note Filed: 02/22/2025 15:26 Note Text: CARE MANAGEMENT DISCHARGE NOTE SERVICE DATE: February 22, 2025 SERVICE TIME: 3:24 PM Admission Date: 02/16/2025 LOS: 5 days Discharge Arrangement Discharge Arrangement: Extended Care Facility Services Arranged Provider Name: [facility] Caregiver Assessment Caregiver is ready, willing and able to meet the patient's needs as recommended by the inter-professional team: Yes Name of Caregiver: Facility staff Transportation Arrangements Transportation Arrangements: Ambulance Transportation Agency and Phone #:: [facility] ( [facility] ) [phone] / [phone] Date of Trip: 02/22/25 Time of Trip: 1999 Type of Service: BLS Non-emergency Is Patient Medicaid Pending?: No Was transportation financial coverage discussed with family?: Patient Sports Commentator Location: [facility] Destination: Return to [facility] Financial Care Management Responsibility: None Handoff Communication: Additional Information: Met with pt and he is agreeable to return to [facility]. Will D/C today at 8 pm via cot with [facility].. D/C paperwork sent electronically and RN to call N2N report. Pt stated he called his brother re: the D/C and time of return to [facility]. SIGNATURE: Andrea Palencia RN PATIENT NAME: Anmol Given DATE: February 22, 2025 TIME: 3:24 PM [facility] 02-22-2025 Note HNO ID: [id number] Author: ANDREA PALENCIA RN Service: Care Management Author Type: Registered Nurse Type: Care Mgt Progress Note Filed: 02/22/2025 15:22 Note Text: CARE MANAGEMENT PROGRESS NOTE SERVICE DATE: 02/22/2025 SERVICE TIME: 3:22 PM LOS: 5 days IMM Follow Up Copy Given: Yes Copy given to:: 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 Railway Operator Name/Relationship: Ilir Jonas Method: In Person Met with pt in room and explained the IMM, he states he understands. He is agreeable to D/C. SIGNATURE: Andrea Palencia RN PATIENT NAME: Anmol Given DATE: February 22, 2025 TIME: 3:22 PM [facility] 02-22-2025 Note HNO ID: [id number] Author: ANDREA PALENCIA RN Service: Care Management Author Type: Registered Nurse Type: Care Mgt Progress Note Filed: 02/22/2025 13:53 Note Text: CARE MANAGEMENT PROGRESS NOTE SERVICE DATE: 02/22/2025 SERVICE TIME: 1:53 PM LOS: 5 days IMM Follow Up Copy Given: Yes Copy given to:: 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 Railway Operator Inclined Railway Operator Name/Relationship: Ilir Jonas Method: By Phone SIGNATURE: Andrea Palencia RN PATIENT NAME: Anmol Given DATE: February 22, 2025 TIME: 1:53 PM [facility] 02-21-2025 Note HNO ID: [id number] Author: ANDREA PALENCIA RN Service: Care Management Author Type: Registered Nurse Type: Care Mgt Progress Note Filed: 02/21/2025 15:41 Note Text: CARE MANAGEMENT PROGRESS NOTE SERVICE DATE: 02/21/2025 SERVICE TIME: 3:39 PM LOS: 4 days D/C plan to return To [facility] when medically ready. D/C packet created and will need cot transport when ready. SIGNATURE: Andrea Palencia RN PATIENT NAME: Anmol Given DATE: February 21, 2025 TIME: 3:39 PM [facility] 02-21-2025 Note HNO ID: [id number] Author: BRIA SHER MD Service: Hospital Medicine Author Type: Physician Type: Progress Notes Filed: 02/21/2025 13:23 Note Text: DEPARTMENT OF HOSPITAL MEDICINE Hospital Medicine/Primary Attending: Bria Sher MD NIGHT AND WEEKEND COVERAGE: After 7pm please page [phone] MEDICATIONS: Current Facility-Administered Medications Medication Dose Route [...] NTND, bowel sounds (more content not included)... [facility] 02-20-2025 Note HNO ID: [id number] Author: YOANA OROSCO, LIBRADO Service: ? Author Type: Registered Nurse Type: Nursing Progress Note Filed: 02/20/2025 18:07 Note Text: Other: Report called to [phone] RN. 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 Spinal cord injury residing at [facility], [facility] for unresponsiveness when normally alert [...] PRN Or d (more content not included)... [facility] 02-20-2025 Note HNO ID: [id number] Author: PENNY VILLASEÑOR RN Service: Care Management Author Type: Registered Nurse Type: Care Mgt Progress Note Filed: 02/20/2025 16:13 Note Text: CARE MANAGEMENT PROGRESS NOTE SERVICE DATE: 02/20/2025 SERVICE TIME: 4:11 PM LOS: 3 days Needs Prior to Discharge: Discharge Transportation DC plan: [facility]. Pt is LTC and a bed hold. Updates to facility. Met with pt and provided update. Pt agreeable to return. SIGNATURE: Penny Villaseñor RN PATIENT NAME: Anmol Reynolds DATE: February 20, 2025 TIME: 4:11 PM [facility] 02-20-2025 Note HNO ID: [id number] Author: ELIZABETH SOLER MD Service: Critical Care Author Type: Physician Type: Progress Notes Filed: 02/20/2025 13:05 Note Text: [facility] ST[facility]FF PHYSICIAN NOTE OF PERSONAL INVOLVEMENT IN [...] improves Urology input appreciated, follow up at [facility] urology Remains off of amiodarone, start [...] [facility] TIME of SERVICE: 8:32 AM [facility] 02-20-2025 Note HNO ID: [id number] Author: ELIZABETH SOLER MD Service: Critical Care Author Type: Physician Type: Progress Notes Filed: 02/20/2025 15:25 Note Text: MICU PROGRESS NOTE PATIENT NAME: Anmol Given REASON FOR ADMISSION: Septic shock (HCC) LOS: [...] hematuria The patient initially presented to the [facility] ED on February 16, 2025 after being found unresponsive at his [facility] facility. MICU was consulted for septic shock, [...] to follow-up with urology at [facility]. Patient was extubated on 02/17 successfully. Course [...] 1.2 CMP: Recent Labs 02/20/25 0539 02/19/25 04102/18/25 04202/17/2522402/16/25 1922 GLUC 90 115* 177* 225* 131* [...] Value Units Date/Time Respiratory Culture and Stain [[id number]] (Abnormal) (Susceptibility) Collected: 02/17/25 1010 Order Status: [...] Resistant Vancomycin S (more content not included)... [facility] 02-19-2025 Note HNO ID: [id number] Author: GAYLE SCOTT MD Service: Infectious Disease Author Type: Physician Type: Plan of Care Filed: 02/19/2025 18:36 Note Text: ID Continuing meropenem due to multiple gram-negative's and Enterococcus faecalis in blood and urine culture Gayle Scott MD 02/19/2025 6:36 PM pgr [phone] [facility] 02-19-2025 Telephone encounter Note Needs outpt cysto, pyelograms, bilateral stent change vs removal in 2-3 weeks. [facility] Work Phone: 02-19-2025 Note HNO ID: [id number] Author: RADHA GRAHAM [facility] Service: Pharmacy Author Type: Pharmacist Type: Plan [...] inpatient anticoagulation education is needed. Radha Graham [facility] 02-19-2025 Note HNO ID: [id number] Author: ANMOL HERBERT MD Service: Urology Author [...] was discussed with the patient or authorized student services representative. The patient or authorized student services representative has agreed to proceed with the sensitive examination. Labs and Imaging Studies LABS: BMP: Recent Labs 02/19/2541802/18/2541902/17/25224 NA 137 135* 132* K 3.7 3.9 4.7 CHLOR 106 104 104 CO2 21* 20* 17* BUN 36* 37* 34* CREAT 0.64* 1.04 1.90* GLUC 115* 177* 225* CBC: Recent Labs 02/19/2541802/18/25 0420 02/17/25 1009 02/17/2522402/16/25 1922 WBC 9.94 13.39* 14.96* 19.64* 10.29 HB 11.1* 11.3* 13.1 11.9* 11.6* HCT 32.5* 33.9* 41.4 36.6* 34.9* PLT 87* 69* 64* 93* 108* Urinalysis: Specific Upperco, Ur Date Value Ref Range Status 02/16/2025 [...] male with chronic bilateral stents placed at [facility] in MAY 2024 - no acute surgical intervention - remains off levo - daily labs; cr stable - plan to follow up with [facility] for stent removal unless becomes unstable / concern for removal needed sooner, then we would discuss OR inpatient - appreciate ICU care - urology to sign off at this time - please reach out with any questions or concerns Tiffanie Baltazar DO Urology PGY-1 February 19, 2025 10:11 AM [facility] 02-19-2025 Note HNO ID: [id number] Author: ELIZABETH SOLER MD Service: Critical Care [...] hematuria The patient initially presented to the [facility] ED on February 16, 2025 after being found unresponsive at his [facility] facility. MICU was consulted for septic shock, [...] to follow-up with urology at [facility]. Patient was extubated on 02/17 successfully. Course [...] this admission. Pt can follow up with [facility] Urology Infectious disease: Discontinue vancomycin and [...] GAS: CBC: Recent Labs 02/19/25 0419 02/18/25 04202/17/25 1009 02/17/25 0225 02/16/251921 WBC 9.94 13.39* 14.96* 19.64* 10.29 HB [...] Value Units Date/Time Respiratory Culture and Stain [[id number]] (Abnormal) Collected: 02/17/25 1010 Order Status: Completed Specimen: Sputum Updated: 02/18/25 0916 Culture, Respiratory Few Normal respiratory gosia present Gram Stain Few Mixed oral gosia Rare Polymorphonuclear leukocytes Few Epithelial cells Blood Culture [[id number]] (Abnormal) Collected: 02/16/25 1928 Order Status: Completed Specimen: Blood Updated: 02/18/25 1603 Culture, Blood Culture report of Enterococcus faecalis Comment: Cephalosporins, clindamycin, and TMP-SMX are not effective for the treatment of enterococcal (more content not included)... [facility] 02-19-2025 Note HNO ID: [id number] Author: NOTE, INTERFACE, ? Service: ? Author Type: ? Type: Progress Notes Filed: 02/19/2025 02:55 Note Text: Epic Scheduled Downtime: 02/19/2025 1:00:00 AM to 02/19/2025 2:37:00 AM [facility] 02-18-2025 Note HNO ID: [id number] Author: GAYLE SCOTT MD Service: Infectious Disease [...] as source based on patient with chronic Satnana catheter due to paraplegia and neurogenic bladder [...] and UTI. Spinal cord injury residing at [facility], [facility] for unresponsiveness when normally alert [...] 1 mg inje (more content not included)... [facility] 02-18-2025 Note HNO ID: [id number] Author: ANMOL HERBERT MD Service: Urology Author [...] Value 02/18/2025 69 11/25/2021 275 Urinalysis: Specific Upperco, Ur Date Value Ref Range Status 02/16/2025 [...] male with chronic bilateral stents placed at [facility] in MAY 2024 PLAN: - No acute intervention - Given pt improvement on current regimen, no plans for surgery this admission - Pt can follow up with [facility] Urology - Appreciate ICU care Jose Nesbitt MD PGY1 Urology 12:22 PM 02/18/25 [facility] 02-18-2025 Note HNO ID: [id number] Author: JON MCDONALD MD Service: Critical Care Author Type: Physician Type: Progress Notes Filed: 02/18/2025 13:06 Note Text: [facility] ST[facility] PHYSICIAN NOTE OF PERSONAL INVOLVEMENT IN [...] designee ICU Dispositio (more content not included)... [facility] 02-18-2025 Note HNO ID: [id number] Author: JON MCDONALD MD Service: Critical Care Author Type: Physician Type: Progress Notes Filed: 02/18/2025 15:04 Note Text: MICU PROGRESS NOTE PATIENT NAME: Anmol Reynolds REASON FOR ADMISSION:Septic shock LOS: 1 Subjective HPI Amnol Reynolds is a 64 year old male [...] intubation. The patient initially presented to the [facility] ED on February 16, 2025 after being found unresponsive at his [facility] facility, last known well 1700 today INTERVAL [...] this admission. Pt can follow up with [facility] Urology Infectious disease: Discontinue vancomycin and [...] 02/17/25 1009 02/17/25 0225 02/16/25 192 WBC 13.39* 14.96* 19.64* 10.29 HB 11.3* [...] -- 1.2 CMP: Recent Labs 02/18/25 0420 02/17/2522402/16/251921 GLUC 177* 225* 131* NA 135* 132* [...] Value Units Date/Time Respiratory Culture and Stain [[id number]] (Abnormal) Collected: 02/17/25 1010 Order Status: Completed Specimen: Sputum Updated: 02/17/25 1328 Gram Stain Few Mixed oral gosia Rare Polymorphonuclear leukocytes Few Epithelial cells Blood Culture [[id number]] (Abnormal) Collected: 02/16/251927 Order Status: Completed Specimen: Blood Updated: 02/17/25 1049 Gram Stain Gram positive cocci in pairs and chains Gram negative bacilli Blood Culture [[id number]] (Abnormal) Collected: 02/16/251921 Order Status: Completed Specimen: [...] with IV c (more content not included)... [facility] 02-18-2025 Note HNO ID: [id number] Author: NOTE, INTERFACE, ? Service: ? Author Type: ? Type: Progress Notes Filed: 02/18/2025 03:47 Note Text: Epic Scheduled Downtime: 02/18/2025 1:00:00 AM to 02/18/2025 3:39:00 AM [facility] 02-17-2025 Note HNO ID: [id number] Author: ELLIOT GOMEZ RN Service: Care Management Author Type: Registered Nurse Type: Care Mgt Initial Assessment Filed: 02/17/2025 13:50 Note Text: CARE MANAGEMENT: ASSESSMENT AND DISCHARGE PLAN SERVICE DATE: February 17, 2025 SERVICE TIME: 1343 PCP: No primary care provider on file. Primary Contact: Extended Emergency Contact Information Primary Emergency Contact: SUMI REYNOLDS Mobile Relation: Daughter Secondary Emergency Contact: Ronald Reynlods Address: [address] [place] [address] Mobile Relation: Brother Admission Status: Inpatient Insurance Provider: [employer]ARBER MEDICARE Discharge Planning requested by: Per Department Practice Potential Transition Plans Long Term Facility/Intermediate Care Facility Advance Directives Current Advance Directive: None Air Table Operator Attempted to Assist with AD Completion: Yes Action: Education Provided Current Living Arrangements and Support Lives with: Other person(s) Type of Residence: Extended Care Facility Does the patient have to climb stairs at home?: No Care Facility Name: [facility] Support: Children, Other: See Comment [facility] staff How do you manage to accomplish the following: Dependent: Ambulation, Bathe/Shower, Meals/Meal Prep, Dress, Going to the bathroom, Medication Management, Transportation to appointments/community Current Services/Equipment Current Post-Acute Service(s): DME Current DME Type: Wheelchair-electric, [place] Lift Discharge Planning Patient Goal(s): General wellness [place] Choice Explained: [place] Choice Given: No Reason Not Given: No placements necessary Are you interested in bedside delivery of your medications? No Discharge Planning Participant(s): Patient, Children Patient/Family Comments: Caregiver Assessment: Caregiver is ready, willing and able to meet the patient's needs as recommended by the inter-professional team: Yes Name of Caregiver: [facility] Transport at Discharge: Transportation Arrangements: Ambulance Transportation Agency and Phone #:: [facility] ) [phone] / [phone] Needs Prior to Discharge: Needs Prior to Discharge: To Be Determined, OT/PT Evaluation, Discharge Transportation Post-Acute Discharge Plan: Met with patient and daughter Sumi in room. Extubated this morning. 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 Patient is LTC and a bed hold at the facility. Plan is to return to [facility] at discharge per daughter. Recommend therapy evals when appropriate. Patient will need precert if skilled is needed on return. Patient will need cot transport at discharge. CM will continue to follow. SIGNATURE: Elliot Gomez RN PATIENT NAME: Anmol Given DATE: February 17, 2025 TIME: 1:43 PM [facility] 02-17-2025 Note HNO ID: [id number] Author: JESSICA CLEMENT RPh Service: Pharmacy Author Type: Pharmacist Type: Plan of Care Filed: 02/21/2025 09:54 Note Text: PHARMACY MEDICATION REVIEW Patient Name: Anmol Reynolds : 1960 The following [facility]: Medications [facility]ED [facility] medication [facility] aspirin, enteric coated (ASPIRIN, ENTERIC [...] hours as needed (heartburn). Medications CHANGED on [employer] medication list Medications REMOVED from [employer] medication list alogliptin benzoate (ALOGLIPTIN ORAL) Adjust [...] E-Cancel Additional comments: Verified medication information with [facility]. Removed medications listed above from med list to match [facility] med list. Added medications listed above to med list to match [facility] med list. 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 No Preferred outpatient pharmacy: [facility] Allergies: No Known Allergies Prior [...] Inject subcutaneously thre (more content not included)... [facility] 02-17-2025 Note HNO ID: [id number] Author: JON MCDONALD MD Service: Critical Care Author Type: Physician Type: Progress Notes Filed: 02/17/2025 13:12 Note Text: [facility] ST[facility] PHYSICIAN NOTE OF PERSONAL INVOLVEMENT IN [...] Prevention: Line Status: (more content not included)... [facility] 02-17-2025 Note HNO ID: [id number] Author: JON MCDONALD MD Service: Critical Care [...] intubation. The patient initially presented to the [facility] ED on February 16, 2025 after being found unresponsive at his fpc facility, last known well 1700 today INTERVAL [...] pathology LV Ejection (more content not included)... [facility] 02-16-2025 Note HNO ID: [id number] Author: ROZ MIKE RN Service: ? Author Type: Registered Nurse Type: ED Notes Filed: 02/16/2025 19:48 Note Text: Restraints applied at this time, bilateral upper extremity softs. [facility] 01-31-2025 Instructions Rj Brooks RN - 01/31/2025 2:01 PM EDT WOUND CARE INSTRUCTIONS- Anmol Reynolds Wound location: sacrum & left ischium [facility] -Gather supplies -Place down a clean [...] the wound base. - Cover with 4x4 [place] SAP. - Change your dressing daily and [...] following changes to the Wound Center at [phone] or go to the Emergency Department: Fever or chills Increased drainage Green or yellow drainage Foul odor Increased pain Hardness around the wound Redness, warmth or swelling of the surrounding tissue Color change to the wound When contacting the wound center at the ([phone]): Leave a message that includes your full [...] Blood work ordered please go to any the [facility] lab. - Please send patient with medication list at next appointment. - Continue aggressive nutritional support to assist wound healing - CAT Scans & MRI need to be scheduled through Central Scheduling. Call [phone].(If applicable) Milad Goodson MD/jason/juan josé documented in this encounter [facility] 01-31-2025 Note HNO ID: [id number] Author: MILAD GOODSON MD Service: ? Author [...] hyperglycemia, with long-term current use of insulin ([facility]) 01/18/2021 Ureteral stone 11/25/2021 UTI (urinary tract infection) 11/26/2021 Vertebral osteomyelitis ([facility]) 01/04/2022 PAST SURGICAL HISTORY Procedure Laterality Date [...] negative unless stat (more content not included)... [facility] 01-31-2025 History of Present illness Narrative [...] Chronic pain of right ankle 11/26/2021 Diabetes ([facility]) Elevated CA 19-9 level 08/21/2021 Epidural abscess (HCC) 01/04/2022 MRSA bacteremia 11/27/2021 Neuropathy Nicotine use disorder, F17.2 06/14/2019 Pilonidal cyst with abscess 12/31/2020 Pilonidal cyst without abscess 05/29/2020 Pyelonephritis 11/27/2021 Sciatica Severe protein-calorie malnutrition (HCC) 09/04/2021 Type 2 diabetes mellitus with hyperglycemia, with long-term current use of insulin ([facility]) 01/18/2021 Ureteral stone 11/25/2021 UTI (urinary tract infection) 11/26/2021 Vertebral osteomyelitis ([facility]) 01/04/2022 PAST SURGICAL HISTORY Procedure Laterality Date [...] in motorized wheelchair Home Care Company/Nursing Facility: [facility] Consent captured for debridement per (Provider) and good until Special Instructions (for example, patient stands at the bedside for exam/dressing): bed Anticoagulant Therapy: aspirin Living Situation (ie... Apartment, house, [facility]: facility [...] BY PROVIDER: Anesthetic Used: N/A applied per warehouse unloader # 1 & 2 Other procedure: Specimen [...] alginate AG Covered and secured with: 4x4 [place] SAP Other: COMPRESSION: N/A DME: Prism order date __ DME: [employer] , PH: [phone] SPECIAL NEEDS: Coordination of care N/A Emotional support N/A OR set-up N/A Culinary Intern N/A Incontinence needs N/A DISCHARGED in stable condition to: facility in motorized wheelchair PLAN/ORDERS: - Return to the Wound Center to see Milad Goodson MD in 6 weeks. - Blood work ordered please go to any the [facility] lab. - Please send patient with medication list at next appointment. - Continue aggressive nutritional support to assist wound healing - CAT Scans & MRI need to be scheduled through Central Scheduling. Call [phone].(If applicable) EDUCATION: The patient/family was instructed how [...] to ANY of questions 5-9, consult the [facility] Rj Brooks RN/fm documented in this encounter [facility] 01-31-2025 Note HNO ID: [id number] Author: RJ BROOKS RN Service: ? Author Type: Registered Nurse Type: Progress Notes Filed: 01/31/2025 14:59 Note Text: Nursing Documentation Pertinent Medical History: paraplegia, MRSA, osteomyelitis, UTI, DM2, neuropathy, pyelonephritis, Wound Etiology according to patient: sacrum wound has had for four years per pt Patient arrived via: self in motorized wheelchair Home Care Company/Nursing Facility: [facility] Consent captured for debridement per (Provider) and good until Special Instructions (for example, patient stands at the bedside for exam/dressing): bed Anticoagulant Therapy: aspirin Living Situation (ie... Apartment, house, [place]): [facility] Who lives with patient: facility Who will [...] BY PROVIDER: Anesthetic Used: N/A applied per warehouse unloader # 1 AND 2 Other procedure: Specimen [...] alginate AG Covered and secured with: 4x4 [place] SAP Other: COMPRESSION: N/A DME: Prism order date __ DME: [employer] , PH: [phone] SPECIAL NEEDS: Coordination of care N/A Emotional support N/A OR set-up N/A Culinary Intern N/A Incontinence needs N/A DISCHARGED in stable condition to: facility in motorized wheelchair PLAN/ORDERS: - Return to the Wound Center to see Milad Goodson MD in 6 weeks. - Blood work ordered please go to any the [facility] lab. - Please send patient with medication list at next appointment. - Continue aggressive nutritional support to assist wound healing - CAT Scans AND MRI need to be scheduled through Central Scheduling. Call [phone].(If applicable) EDUCATION: The patient/family was instructed how [...] 5-9, consult the [facility] Rj Brooks RN/[facility] 01-04-2025 History of Present illness Narrative [...] PATIENT PRESENTS WITH AN IMPLANTABLE OR ATTACHED SUBGRADE ROLLER OPERATOR: No ALLERGIES: Reviewed and unchanged CONTRAST ALLERGY: NO. EXAM: MRI - CONTRAST TYPE: GROUP II PERIPHERAL IV DATA: RAD RN IV RADIOLOGY DEPARTMENT: MR; Exam(s) Completed: Spine: Sacrum/Coccyx SIGNATURE: LIZ Roth PATIENT NAME: Anmol Reynolds DATE: January 04, 2025 TIME: 8:49 AM documented in this encounter [facility] 01-04-2025 Note HNO ID: [id number] Author: AMBROSIO BAUGH RT(R) Service: Radiology Author [...] PATIENT PRESENTS WITH AN IMPLANTABLE OR ATTACHED SUBGRADE ROLLER OPERATOR: No ALLERGIES: Reviewed and unchanged CONTRAST ALLERGY: NO. EXAM: MRI - CONTRAST TYPE: GROUP II PERIPHERAL IV DATA: RAD RN IV RADIOLOGY DEPARTMENT: MR; Exam(s) Completed: Spine: Sacrum/Coccyx SIGNATURE: LIZ Roth PATIENT NAME: Anmol Given DATE: January 04, 2025 TIME: 8:49 AM [facility] 01-04-2025 Note HNO ID: [id number] Author: JOVANY JOHNSTON RN Service: Radiology Author [...] DATE: January 04, 2025 TIME: 8:46 AM [facility] 11-08-2024 History of Present illness Narrative [...] (around 02/05/2025) for in-person visit with [facility]. Faisal Simeon DO 11/08/2024 documented in this encounter [facility] 10-27-2024 Telephone encounter Note Returned call unable to leave message doug was out for the day [facility] 10-27-2024 Miscellaneous Notes Returned call unable to leave message doug was out for the day Name of caller: Doug Contact phone number: [phone] Relationship to Patient: [facility] Provider: Dr. Gillette Practice: [facility] Chief Complaint/Reason for Call: Doug [...] pain management//no showed on 08.04.24// Doug from [facility] appt//medicare medicaid Office Name: [facility] Medication Refills need, if any: n/a Medication Name: n/a documented in this encounter [facility] 10-26-2024 Telephone encounter Note Name of caller: Doug Contact phone number: [phone] Relationship to Patient: [facility] Provider: Dr. Gillette Practice: [facility] Chief Complaint/Reason for Call: Doug states she missed a call from the office to schedule the patient and would like a return call. Please review. Best time of day caller can be reached: any Patient advised that office/PCP has 24-48 business hours to return their call: Yes [facility] [employer] 10-26-2024 Telephone encounter Note Called and left message to call to reschedule appointment [facility] [employer] 10-25-2024 Telephone encounter Note Name of Caller: Doug Contact Reason for Appointment: Please call to r/s cx appt for 10.26.24 due to weather conditions. Follow up for pain management//no showed on 08.04.24// Doug from [facility] made appt//medicare medicaid Office Name: [facility] Medication Refills need, if any: n/a Medication Name: n/a [facility] [employer] 09-30-2024 Instructions Faisal Simeon DO - 09/30/2024 1:28 PM EST Completed UDS. Inserted 18Fr 10cc santana Call to schedule appt with Urology Dr Jorge Grimm MD (Surgeon) [address] [facility] [address] [place] [address] Urology [place] [id number] Check renal CT scan given recurrent blood [...] burning on urination, call the office at [phone] Thursday through Thursday 8:00 AM to 4:30 PM. For emergencies, go the Emergency Room. If you do not already have a follow up appointment scheduled with your physician, call the office at [phone] to schedule one. documented in this encounter [facility] 09-30-2024 History of Present illness Narrative Images [...] then PVR was assessed by straight catheterization. 7-[place] urodynamic catheter was placed in the bladder [...] oral post procedural antibiotic was prescribed to [facility] pharmacy. Overall the procedure was well [...] Void Residual (mL): 325 mL Storage phase (72472 or 35462/88541) Rate of Fluid infusion, First sensation (Normal [...] was observed only with valsalva Voiding Phase (78430/32479) Maximum flow, Pdet at maximum flow, Volume voided: See scanned report in Media EMG Anal/urinary muscle study patch (95506 -00) EMG inconclusive (connection was lost during study). [...] INTRA-ABDOMINAL VOIDING PRESSURE INSERT CATHETER (SANTANA) SIMPLE [05171] COMPLEX CYSTOMETROGRAM CT RENAL STONE nitrofurantoin monohydrate macrocrystal (Macrobid) 100 MG capsule Patient Instructions Completed UDS. Inserted 18Fr 10cc santana Call to schedule appt with Urology Dr Jorge Grimm MD (Surgeon) [address] [place] [address] scan given recurrent blood [...] burning on urination, call the office at [phone] Thursday through Thursday 8:00 AM to 4:30 PM. For emergencies, go the Emergency Room. If you do not already have a follow up appointment scheduled with your physician, call the office at [phone] to schedule one. Catheters: Continue indwelling catheterization Fluid intake: maintaining hydration Medications: contrinue flomax for stent/stones Other: See above Return to Clinic: Follow up in about 4 weeks (around 10/28/2024) for video visit (telehealth). Faisal Simeon DO 09/30/2024 documented in this encounter [facility] 08-22-2024 History of Present illness Narrative Rheumatology [...] Resource Strain: Low Risk (04/24/2023) Received from [facility] Overall Financial Resource Strain (CARDIA) Difficulty of Paying Living Expenses: Not hard at all Food Insecurity: No Food Insecurity (05/18/2024) Received from [facility] Hunger Vital Sign Worried About Running Out of Food in the Last Year: Never true Ran Out of Food in the Last Year: Never true Transportation Needs: No Transportation Needs (05/18/2024) Received from [facility] PRAPARE - Transportation Lack of Transportation (Medical): No Lack of Transportation (Non-Medical): No Intimate Partner Violence: Not At Risk (05/18/2024) Received from [facility] Humiliation, Afraid, Rape, and Kick questionnaire Fear [...] Forteo or Tymlos. He is amenable. [facility] is acme to get labs ordered Will check BMP, Vit D, PTH, SPEP Plan for Forteo if labs ok. Follow up 3 months or sooner PRN Giuliano Shultz DO documented in this encounter [facility] 08-12-2024 Telephone encounter Note Spoke with [facility] Care Facility where pt resides and given the date and time of NSH TEACHER video visit with Dr. Shultz at 8:20 am on 08/22/24. This information will be relayed to pt. [facility] 08-12-2024 Miscellaneous Notes Spoke with [facility] where pt resides and given the date and time of NSH TEACHER video visit with Dr. Shultz at 8:20 am on 08/22/24. This information will be relayed to pt. documented in this encounter [facility] 08-01-2024 Note Addended by: FAISAL SIMEON on: 08/01/2024 02:57 PM Modules accepted: Level of Service [facility] 08-01-2024 Note Addended by: FAISAL SIMEON on: 08/01/2024 02:57 PM Modules accepted: Level of Service [facility] 08-01-2024 Miscellaneous Notes Addended by: FAISAL SIMEON on: 08/01/2024 02:57 PM Modules accepted: Level of Service documented in this encounter [facility] 08-01-2024 Instructions Howard Dhaliwal MD - 08/01/2024 9:30 AM EDT -Continue PT/OT -Please follow your appoitment with pain team and rheumatology -You are scheduled for bladder study on 09/30/24 -continue scheduled bowel care daily documented in this encounter [facility] 07-31-2024 History of Present illness Narrative Images [...] following spinal surgery ~2 yrs ago in [place] . In 2019, pt had his first back surgery performed by [facility] which was an interbody fusion. 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 At that point, the hospital took the hardware out and did not replace it with the goal of treating the infection. 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 After the infection was treated, [facility] extended his fusion, decompressed the back, and replaced all hardware. At that time he lost all motor and sensation to his lower extremities. He was independent uptill december 2021 till his last spine surgery two year ago.Since 2021 he is in longterm and he changes 5 longterm so far. Currently SNF in [facility]. Last seen on 06/13/24 in clinic and recommendations was: -Continue PT/OT -Bowel care: schedule bowel care once/day (either after breakfast or dinner) - using suppository and manual stimulation over commode chair will be more helpful than over bed . 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 oHward Dhaliwal MD Spinal Cord Injury Medicine Fellow [...] Faisal Simeon DO documented in this encounter [facility] 07-27-[address] Grady murphy to Rheumatology. Spoke with patient's brother today who referred me to call [facility], where patient resides, to see about arranging transportation for patient to a Rheumatology appt (not scheduled yet). I spoke with a healthcare worker at [facility] and let her know we can also schedule a video visit with Dr. Hare. She will call me back after discussing with patient. [facility] 07-27-2024 Telephone encounter Note Referral from Dr. Mejia to Rheumatology. Spoke with patient's brother today who referred me to call [facility], where patient resides, to see about arranging transportation for patient to a Rheumatology appt (not scheduled yet). I spoke with a healthcare worker at [facility] and let her know we can also schedule a video visit with Dr. Hare. She will call me back after discussing with patient. [facility] 07-27-2024 Miscellaneous Notes Referral from Dr. Mejia to Rheumatology. Spoke with patient's brother today who referred me to call [facility], where patient resides, to see about arranging transportation for patient to a Rheumatology appt (not scheduled yet). I spoke with a healthcare worker at [facility] and let her know we can also schedule a video visit with Dr. Hare. She will call me back after discussing with patient. documented in this encounter [facility] 07-13-[address] Mejia referral to Rheumatology for Osteoporosis. Spoke with brother who transports pt to and from appts since pt resides in extended care facility. Brother is available on Fridays to transport pt to appts. Will call him back with options. [facility] 07-13-2024 Telephone encounter Note This is a Dr Mejia referral to Rheumatology for Osteoporosis. Spoke with brother who transports pt to and from appts since pt resides in extended care facility. Brother is available on Fridays to transport pt to appts. Will call him back with options. [facility] 07-13-2024 Miscellaneous Notes This is a Dr Mejia referral to Rheumatology for Osteoporosis. Spoke with brother who transports pt to and from appts since pt resides in extended care facility. Brother is available on Fridays to transport pt to appts. Will call him back with options. documented in this encounter [facility] 06-16-2024 Note Addended by: FAISAL SIMEON on: 06/16/2024 09:13 PM Modules accepted: Level of Service [facility] 06-16-2024 Miscellaneous Notes Addended by: FAISAL SIMEON on: 06/16/2024 09:13 PM Modules accepted: Level of Service documented in this encounter [facility] 06-16-2024 Telephone encounter Note Scheduled appointment [facility] 06-16-2024 Miscellaneous Notes Scheduled appointment Doug is calling in again wanting to rescheduled they can be reached at the office anytime before 3pm. Please advise and thank you LM for Doug to call the office to discuss the pt Name of caller: Doug Contact phone number: [phone] Relationship to Patient: sanctmohan Provider: [facility] Practice: pain management Chief Complaint/Reason for Call: doug is calling in wanting to speak to the main office. Please advise and thank you Best time of day caller can be reached: any Patient advised that office/PCP has 24-48 business hours to return their call: Yes documented in this encounter [facility] 06-16-2024 Telephone encounter Note Doug is calling in again wanting to rescheduled they can be reached at the office anytime before 3pm. Please advise and thank you [facility] 06-15-2024 Telephone encounter Note LM for Doug to call the office to discuss the pt [facility] 06-15-2024 Telephone encounter Note Name of caller: Doug Contact phone number: [phone] Relationship to Patient: [facility] Provider: [facility] Practice: pain management Chief Complaint/Reason for Call: doug is calling in wanting to speak to the main office. Please advise and thank you Best time of day caller can be reached: any Patient advised that office/PCP has 24-48 business hours to return their call: Yes [facility] 06-14-2024 Telephone encounter Note RTC to pt, left voice mail. Vladimir Asher [facility] Plumbing Foreman [phone] [facility] 06-14-2024 Miscellaneous Notes RTC to pt, left voice mail. Vladimir Asher [facility] Plumbing Foreman [phone] documented in this encounter [facility] 06-13-2024 Instructions Howard Dhaliwal MD - 06/13/2024 12:29 PM EDT -Continue PT/OT -Bowel care: schedule bowel care once/day (either after breakfast or dinner) - using suppository and manual stimulation over commode chair will be more helpful than over bed . - Continue skin care - Follow [facility] service consult( we requested today ) for benefits eligibility - Bladder: We ordered today Urodynamic study for your bladder evaluation (to see your bladder status post spinal cord injury) documented in this encounter [facility] 06-13-2024 Instructions Howard Dhaliwal MD - 06/13/2024 12:29 PM EDT -Continue PT/OT -Bowel care: schedule bowel care once/day (either after breakfast or dinner) - using suppository and manual stimulation over commode chair will be more helpful than over bed . - Continue skin care - Follow [facility] service consult( we requested today ) for benefits eligibility - Bladder: We ordered today Urodynamic study for your bladder evaluation (to see your bladder status post spinal cord injury) documented in this encounter [facility] 06-13-2024 History of Present illness Narrative Patient was identified by name and date of . Evelio Grey documented in this encounter [facility] 06-13-2024 History of Present illness Narrative Patient [...] following spinal surgery ~2 yrs ago in [place] . In 2019, pt had his first back surgery performed by [facility] which was an interbody fusion. 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 At that point, the hospital took the hardware out and did not replace it with the goal of treating the infection. 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 After the infection was treated, [facility] extended his fusion, decompressed the back, and [...] 5 longterm so far. Currently SNF in [facility]. 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 - Continue skin care - Follow [facility] service consult( we requested today ) [...] Faisal Simeon DO documented in this encounter [facility] 05-22-2024 Note Formatting of this n ote might be different from the original. Called [facility] dispatch, new ETA is around 1900. [facility] 05-22-2024 Note Formatting of this n ote might be different from the original. Called [facility] dispatch, new ETA is around 1900. [facility] 05-22-2024 Miscellaneous Notes Called [facility]adama[facility] dispatch, new ETA is around 1900. CARE COORDINATION DAILY NOTE/UPDATE Discharge Plan: [facility] This TCC was tasked to follow this patient through the weekend assisting with discharge planning. Chart was reviewed. Met with patient at bedside to confirm if he would like to return to [facility]. Patient agreeable to return. Messaged attending and infectious disease to see if patient is able to discharge today. Discharge order placed. Scheduled discharge transportation in [employer], spanish moss picker time confirmed for 05/22 at 1600. Bedside nurse notified of transport and will update patient and family of plan Facility notified of transportation time and discharge documents including After Visit Summary, MAR, LABS, and Vitals were [facility]. Problem: Knowledge Deficit Goal: Patient/family/caregiver [...] determined. Current discharge plan is return to [facility]. Will return skilled only if needed, otherwise he can return under his medicaid benefit [facility] message. TCC to continue to follow. Return Referral placed to [facility] via [facility] per TCC request. Await review and response regarding ability to accept. TCC notified. Care Managment Initial Assessment Date: 05/19/2024 Patient Name: Anmol Reynolds : 1960 Patient Information Source of Information: Patient Cognition/Language: WFL - Within Functional Limits Permission given to speak with patient student services representative/caregiver as indicated: Yes Confirmation of Payer with patient/family: Yes Payer Name: Medicare A/B; [place] Medicaid : No Confirmation of Primary Care Physician: Confirmed PCP Name: aTb Nieves MD at facility Seen in last 2 years?: Yes Primary Caregiver: Other (Comment) (facility staff) If assistance needed, confirmed caregiver ready, willing and able to care for patient at discharge: No (n/a) Confirmed with: Living Arrangements Facility: Skilled Nursing/[facility] Facility Name: [facility] Plan to Return: Yes Lives with: Alone, Other (Comment) (at [facility]) Support Systems: Children, Family members, Comments (Other) [...] ECF Discharge Planning Actions: Continue to follow, Long Term Facility referral indicated [place]: [place] discussed (choice list not indicated; [...] ID consulted. Patient is a resident at [facility] xfew years. Patient confirmed plan for return. QUENCHING CAR OPERATOR tasked to place return referral. Anticipate discharge [...] instructions Outcome: Progressing documented in this encounter [facility] 05-22-2024 Nurse Note Transport arranged for 1600. Belongings packed and paperwork finished. Carlos Montelongo update: 45 minutes. Elly Cormier RN [facility] 05-22-2024 Nurse Note Transport arranged for 1600. Belongings packed and paperwork finished. Carlos Montelongo update: 45 minutes. Elly Cormier RN Santana catheter leaking since last night. Dr. Mahajan paged via secure chat. Catheter to be replaced. Patient informed me that they use a 18 nepalese santana at the longterm. A 16 nepalese was previously in. Urology cart was ordered, and a 18 nepalese santana was placed with 500 mL output. Larger balloon, filled with 25 mL. No leaking. Will continue to monitor. Elly Cormier RN documented in this encounter [facility] 05-22-2024 Nurse Note Santana catheter leaking since last night. Dr. Mahajan paged via secure chat. Catheter to be replaced. Patient informed me that they use a 18 nepalese santana at the longterm. A 16 nepalese was previously in. Urology cart was ordered, and a 18 nepalese santana was placed with 500 mL output. Larger balloon, filled with 25 mL. No leaking. Will continue to monitor. Elly Cormier RN [facility] 05-22-2024 Hospital course Narrative Images from [...] Complexity: follow up within 7-14 calendar days (50200) [] Severe Complexity: follow up within 7 calendar days (72798) FOLLOW UP TESTING, PENDING RESULTS OR REFERRALS [...] 05/22/2024, 1:52 PM documented in this encounter [facility] 05-22-2024 History of Present illness Narrative [...] claudication Type 2 diabetes mellitus without complication ([facility]/HCC) (HCC) Urinary calculus, unspecified UTI (urinary [...] of Hospitalist Medicine Inpatient Medical Services/[facility] Images from the original note were not included. PHYSICAL THERAPY [facility] Initial Evaluation Name/MRN: Anmol Reynolds ([id number]) Evaluation Date: 05/21/2024 Date of : 1960 Admission Date: 05/17/2024 8:25 PM Age: 63 y.o. Room[facility]: [facility] Discharge Recommendation: ECF without PT (Patient states he may be interested to going to a different ECF in [place]) Equipment Needed: No Assessment IMPRESSION: Patient is [...] gait and mobility Other reduced mobility Paraplegia ([facility]) Sciatica Spinal stenosis of lumbar region with neurogenic claudication Type 2 diabetes mellitus without complication ([facility]) ([facility]) Urinary calculus, unspecified UTI (urinary tract infection) Past Surgical History: Past Surgical History: Procedure Laterality Date ANKLE SURGERY Right He has a titanium plate to the right ankle KNEE SURGERY Left ACL KNEE SURGERY Left removal of screw LAMINECTOMY Left 10/24/2020 LEFT BILATERAL L2-3-4-5 DECOMPRESSION performed by Opal Vigil MD at [facility] OR ORTHOPEDIC SURGERY Right removal of hardware ankle US PLACE URETAL STENT PERC PRE-EXIST TRACT S&I (HISTORICAL) Bilateral 04/14/2024 Dr. Grimm/Bashir Admission Diagnosis: Patient Active Problem List Diagnosis Date Noted Hypertension 01/06/2017 Hyperglycemia 01/06/2017 Hip sprain 01/06/2017 Anxiety 01/06/2017 Positive blood cultures 05/17/2024 Calculus of ureter 05/06/2024 Bladder calculus 05/05/2024 Pressure injury of coccygeal region, stage 3 ([facility]) 04/20/2024 Septic shock ([facility]) 04/14/2024 Lumbar stenosis with neurogenic claudication 10/24/2020 Spinal stenosis of lumbar region with neurogenic claudication 10/24/2020 Nicotine use disorder 10/15/2020 Unspecified osteoarthritis, unspecified site 10/15/2020 Pilonidal cyst without abscess 10/15/2020 Diabetes mellitus without complication ([facility]/HCC) ([facility]) 10/15/2020 Abnormal finding on EKG 10/15/2020 Other [...] normal Social/Functional History Patient admitted from SNF. ([facility]) Assistive Equipment: wheelchair - electric, hospital [...] Transfers N/T - requires everett lift at ECF Ambulation Non-ambulatory Outcome Measures AM-PAC How much [...] of Care supervision is transferred to a [facility] Therapy Services Physical Therapist. Goals and/or [...] Intake/Output Summary (Last 24 hours) at 05/21/2024 09 Last data filed at 05/20/2024 1800 Gross [...] of Hospitalist Medicine Inpatient Medical Services/[facility] Images from the original note were not included. [facility] - Infectious Diseases DEMURRAGE AGENT Progress Note Subjective: Following for CoNS positive [...] NGTD 05/16- blood cx- 1/1 CoNS ([facility]) 05/05- tissue from bladder- C parapsilosis, [...] and R psoas abscess (01/2022); treated by [facility] ID Paraplegia w neurogenic bladder s/p [...] if questions or concerns. Rosalinda Fox CNP [facility] - Infectious Diseases 10:11 AM 05/20/2024 Based on diagnoses and management, combination of acute and chronic problems, exacerbations and/or acuity, this visit should be considered to be of moderate complexity. Hospitalist Progress Note 05/20/2024 Subjective: Admit Date: 05/17/2024 PCP: Tab Dupont Room#: W6-568/W6-377 A Brief Hospital course: Anmol is a [...] LABS: CBC: Recent Labs 05/18/24 0620 05/19/24 04005/20/24 0606 WBC 7.7 5.4 5.5 RBC 4.13* [...] of Hospitalist Medicine Inpatient Medical Services/[facility] Nutrition Assessment Type and Reason for Visit: [...] note, pt was recently admitted to [facility] 04/14-04/20/2024 with proteus, providencia, and morganella bacteremia [...] On: Kcal/kg Weight Used for Energy Requirements: [place] Weight for Energy Calculation (kg): 89 kg Total Energy Requirements (kcals/day): 2725-4593 kcal/day (25-30 kcal/kg) Weight Used for Protein Requirements: [place] Weight in Kg Used for Protein Requirements: [...] mostly appear stated, 180-200#, noted 04/19- 212#) [place] Body Weight (lbs) (Calculated): 196 lbs [place] Body Weight (Kg) (Calculated): 89 kg BMI [...] Chelita Dominguez RD Contact: Secure chat or *[phone] Images from the original note were not included. [facility] - Infectious Diseases DEMURRAGE AGENT Progress Note Subjective: Following for CoNS positive [...] NGTD 05/16- blood cx- 1/1 CoNS ([facility]) 05/05- tissue from bladder- C parapsilosis, [...] plan d/w Dr. Melchor. Rosalinda Fox CNP [facility] - Infectious Diseases 3:08 PM 05/19/2024 Based on diagnoses and management, combination of acute and chronic problems, exacerbations and/or acuity, this visit should be considered to be of moderate complexity. Hospitalist Progress Note 05/19/2024 Subjective: Admit Date: 05/17/2024 PCP: AMBROSIO MONROY DO Room#: W6-625/W6-008 A Brief Hospital course: Anmol is a [...] of Hospitalist Medicine Inpatient Medical Services/[facility] Hospitalist Progress Note 05/18/2024 Subjective: Admit Date: [...] Daughter Bradbam Katia Mahajan MD [facility] Medicine Inpatient Medical Services/[facility] documented in this encounter [facility] 05-22-2024 Note Formatting of this n ote might be different from the original. CARE COORDINATION DAILY NOTE/UPDATE Discharge Plan: [facility] This TCC was tasked to follow this patient through the weekend assisting with discharge planning. Chart was reviewed. Met with patient at bedside to confirm if he would like to return to [facility]. Patient agreeable to return. Messaged attending and infectious disease to see if patient is able to discharge today. Discharge order placed. Scheduled discharge transportation in [employer], spanish moss picker time confirmed for 05/22 at 1600. Bedside nurse notified of transport and will update patient and family of plan Facility notified of transportation time and discharge documents including After Visit Summary, MAR, LABS, and Vitals [facility]. [facility] 05-22-2024 Note Formatting of this n ote might be different from the original. CARE COORDINATION DAILY NOTE/UPDATE Discharge Plan: [facility] This TCC was tasked to follow this patient through the weekend assisting with discharge planning. Chart was reviewed. Met with patient at bedside to confirm if he would like to return to [facility]. Patient agreeable to return. Messaged attending and infectious disease to see if patient is able to discharge today. Discharge order placed. Scheduled discharge transportation in [employer], spanish moss picker time confirmed for 05/22 at 1600. Bedside nurse notified of transport and will update patient and family of plan Facility notified of transportation time and discharge documents including After Visit Summary, MAR, LABS, and Vitals were uploaded into [facility] for review. [facility] 05-22-2024 Plan of care note Problem: [...] Nutritional Intake Outcome: Adequate for Discharge T [facility] 05-22-2024 Plan of care note Problem: Safety Goal: Patient will be injury free during hospitalization Outcome: Progressing Problem: Safety Goal: I will remain free of falls Outcome: Progressing [facility] 05-21-2024 Plan of care note Problem: [...] Interventions Goal: Assess Nutritional Intake Outcome: Progressing [facility] 05-20-2024 Plan of care note Problem: Knowledge Deficit Goal: Patient/family/caregiver demonstrates understanding of disease process, treatment plan, medications, and discharge instructions Outcome: Progressing Problem: Potential for Compromised Skin Integrity Goal: Skin Integrity is Maintained or Improved Outcome: Progressing Goal: Nutritional status is improving Outcome: Progressing [facility] 05-20-2024 Note Formatting of this n ote might be different from the original. Chart reviewed. ID following for CoNS postive BC and proteus UTI. Repeat BC pending. +iv cefepime, final course not yet determined. Current discharge plan is return to [facility]. Will return skilled only if needed, otherwise he can return under his medicaid benefit per [facility] message. TCC to continue to follow. [facility] 05-20-2024 Note Formatting of this n ote might be different from the original. Chart reviewed. ID following for CoNS postive BC and proteus UTI. Repeat BC pending. +iv cefepime, final course not yet determined. Current discharge plan is return to [facility]. Will return skilled only if needed, otherwise he can return under his medicaid benefit per careport message. TCC to continue to follow. [facility] 05-20-2024 Hospital Discharge instructions Elly Cormier [...] DECOMPRESSION performed by Opal Vigil MD at [facility] OR ORTHOPEDIC SURGERY Right [...] Total assistance Toileting Total assistance Feeding Independent Research Assistant Professor Total assistance Med Delivery yes Wound Care Documentation and Therapy: Wound/Incision 04/14/24 Pressure Injury Sacrum (Active) Site Assessment Red 05/18/241843 [place]-Wound Assessment Red 05/18/24 184 Wound Length (cm) 1.5 cm 05/18/24 184 Wound Width (cm) 1 cm 05/18/24 184 Wound Surface Area (cm^2) 1.5 cm^2 05/18/24 1844 Odor None 05/18/24 184 Drainage Amount None [...] Date: 05/17/2024 Discharging to Facility/ Agency Name: [facility] Address: [address] [place] [address] Glue Spreader/Billet Heater signature: ICIAN SECTION Name: Anmol Reynolds Prognosis: fair Condition at Discharge: stable Rehab Potential (if transferring to Rehab): fair Recommended Labs or Other Treatments After Discharge: cbc,cmp The individual is being admitted to a nursing facility directly from an [facility] or a unit of a hospital that is not operated by or licensed by [facility] under section 5119.14 or 5160-3-15.1 5 The individual requires the level of services provided by a nursing facility for the condition for which he or she was treated in the hospital and, Physician Certification: I certify the above information and transfer of Anmol Reynolds is necessary for the continuing treatment of the diagnosis listed and that he requires fpc facility for less than 30 days. Update Admission H&P: No change in H&P PHYSICIAN SIGNATURE: documented in this encounter [facility] 05-19-2024 Note Formatting of this n ote might be different from the original. Return Referral placed to [facility] via [facility] per TCC request. Await review and response regarding ability to accept. TCC notified. [facility] 05-19-2024 Note Formatting of this n ote might be different from the original. Return Referral placed to [facility] via [facility] per TCC request. Await review and response regarding ability to accept. TCC notified. [facility] 05-19-2024 Note Formatting of this n ote might be different from the original. Care Managment Initial Assessment Date: 05/19/2024 Patient Name: Anmol Reynolds : 1960 Patient Information Source of Information: Patient Cognition/Language: WFL - Within Functional Limits Permission given to speak with patient student services representative/caregiver as indicated: Yes Confirmation of [...] Arrangements Facility: Skilled Nursing/[facility] Facility Name: [facility] Plan to Return: Yes Lives with: [...] ECF Discharge Planning Actions: Continue to follow, Long Term Facility referral indicated [place]: [place] discussed (choice list not indicated; [...] ID consulted. Patient is a resident at [facility] xfew years. Patient confirmed plan for return. QUENCHING CAR OPERATOR tasked to place return referral. Anticipate discharge in 2-3 days pending medical stability. Patient will need transport. TCC to continue to follow. Vipin Peter RN [facility] 05-19-2024 Note Formatting of this n ote might be different from the original. Care Managment Initial Assessment Date: 05/19/2024 Patient Name: Anmol Reynolds : 1960 Patient Information Source of Information: Patient Cognition/Language: WFL - Within Functional Limits Permission given to speak with patient student services representative/caregiver as indicated: Yes Confirmation of Payer with patient/family: Yes Payer Name: Medicare A/B; [place]: No Confirmation of Primary Care Physician: Confirmed PCP Name: Tab Nieves MD at facility Seen in last 2 years?: Yes Primary Caregiver: Other (Comment) (facility staff) If assistance needed, confirmed caregiver ready, willing and able to care for patient at discharge: No (n/a) Confirmed with: Living Arrangements Facility: Skilled Nursing/[facility] Facility Name: [facility] Plan to Return: Yes Lives with: Alone, Other (Comment) (at [facility]) Support Systems: Children, Family members, Comments (Other) [...] ECF Discharge Planning Actions: Continue to follow, Long Term Facility referral indicated [place]: [place] discussed (choice list not indicated; [...] ID consulted. Patient is a resident at [facility] xfew years. Patient confirmed plan for return. QUENCHING CAR OPERATOR tasked to place return referral. Anticipate discharge in 2-3 days pending medical stability. Patient will need transport. TCC to continue to follow. Vipin Peter RN [facility] 05-18-2024 Plan of care note The patient is Moderately Stable - Low risk of patient condition declining or worsening The patient's goals for the shift include Pain control. The clinical goals for the shift include Patient to remain free of injury for the entirety of the shift. [facility] 05-18-2024 Plan of care note Problem: Knowledge Deficit Goal: Patient/family/caregiver demonstrates understanding of disease process, treatment plan, medications, and discharge instructions Outcome: Progressing [facility] 05-18-2024 Emergency department Note Pt refusing BG check stating "I'm already eating." aware. Ella Zavala RN 05/18/24 1805 [facility] 05-18-2024 Emergency department Note Pt refusing BG check stating "I'm already eating." MD savage. Ella Zavala RN 05/18/24 1805 Pt refusing [...] Resource Strain: Low Risk (04/24/2023) Received from [facility], [facility] Overall Financial Resource Strain ([facility]) Difficulty of Paying Living Expenses: Not [...] Homeless in the Last Year: No SCREENINGS [place] Coma Scale Best Eye Response: Spontaneous Best Verbal Response: Oriented Best Motor Response: Follows commands [place] Coma Scale Score: 15 PHYSICAL EXAM ED [...] Culture. Procedure Abnormality Status --------- ------ Complete Urinalysis[[id number]] Abnormal Final result Please view results for these tests on the individual orders. COMPLETE URINALYSIS WITH REFLEX TO CULTURE Narrative: The following orders were created for panel order Urinalysis complete with reflex to Culture. Procedure Abnormality Status --------- ------ Complete Urinalysis[[id number]] Please view results for these tests on [...] 4 mg (4 mg IntraVENous Given 05/17/24 5200) ED care was supervised by Dr. Guerrero [...] Emergency Medicine Provider Terri Simeon PA-C 05/17/24 2331 Emergency Department Encounter [facility] EMERGENCY DEPT Patient: Anmol Reynolds : 1960 [...] for clarification.) Rodney Guerrero DO Acute Care [facility] Rodney Guerrero DO 05/18/24 0435 documented in this encounter [facility] 05-18-2024 Emergency department Note Pt refusing BG check at this time. MD savaeg. Ella Zavala RN 05/18/24 1237 [facility] 05-18-2024 Emergency department Note Pt refusing continuous IV fluids. MD janette Zavala RN 05/18/24 1051 [facility] 05-18-2024 Emergency department Note Pt moved onto hospital bed, denies any needs or complaints at this time. Ella Zavala RN 05/18/24 1026 [facility] 05-18-2024 Emergency department Note Pharmacy contacted regarding missing oxycodone. Ella Zavala RN 05/18/24 1052 [facility] 05-18-2024 Consult note Associated Order (s): IP CONSULT TO INFECTIOUS DISEASES Images from the original note were not included. [facility] - [facility] DEMURRAGE AGENT inpatient Consult Note Reason for Consult: Complicated [...] daptomycin with suppressive minocycline. Pt presented to [facility] ED on 05/17/2024 for evaluation of positive blood cultures. Pt was recently admitted to [facility] 04/14-04/20/2024 with proteus, providencia, and morganella bacteremia [...] DECOMPRESSION performed by Opal Vigil MD at [facility] OR ORTHOPEDIC SURGERY Right [...] Resource Strain: Low Risk (04/24/2023) Received from [facility], [facility] Overall Financial Resource Strain (CARDIA) Difficulty [...] blood cx- / GPC in clusters ([facility]) 05/05- tissue from bladder- C parapsilosis, [...] cultures from 05/06 Called micro lab at [place]--> blood cx + CoNS (only one set drawn). Hold off on vancomycin for now and follow-up repeat blood cx. If negative, likely CoNS is a contaminant. ID service will continue to follow; plan d/w Dr. Melchor. Rosalinda Fox CNP [facility] - Infectious Diseases 12:28 PM 05/18/2024 Total time 75 minutes on this day of encounter includes counseling, coordinating plan of care, record and documentation review before and after visit including documentation and time not explicitly included on EMR time stamp for accounting for open encounter. [facility] 05-18-2024 Consult note Associated Order (s): IP CONSULT TO INFECTIOUS DISEASES Images from the original note were not included. [facility] - Infectious Diseases DEMURRAGE AGENT inpatient Consult Note Reason for Consult: Complicated [...] daptomycin with suppressive minocycline. Pt presented to [facility] ED on 05/17/2024 for evaluation of positive blood cultures. Pt was recently admitted to [facility] 04/14-04/20/2024 with proteus, providencia, and morganella bacteremia [...] DECOMPRESSION performed by Opal Vigil MD at [facility] OR ORTHOPEDIC SURGERY Right [...] Resource Strain: Low Risk (04/24/2023) Received from [facility], [facility] Overall Financial Resource Strain (CARDIA) Difficulty [...] 05/16- blood cx- / GPC in clusters ([facility]) 05/05- tissue from bladder- C [...] cultures from 05/06 Called micro lab at [place]--> blood cx + CoNS (only one set drawn). Hold off on vancomycin for now and follow-up repeat blood cx. If negative, likely CoNS is a contaminant. ID service will continue to follow; plan d/w Dr. Melchor. Rosalinda Fox, SHARIFA [facility] - Infectious Diseases 12:28 PM 05/18/2024 Total time 75 minutes on this day of encounter includes counseling, coordinating plan of care, record and documentation review before and after visit including documentation and time not explicitly included on EMR time stamp for accounting for open encounter. documented in this encounter [facility] 05-18-2024 Emergency department Note Pt refused BG check/meds at this time stating "I just want some sleep." Hospital bed ordered for pt. Meds deferred at this time. Ella Zavala RN 05/18/24821 [facility] 05-18-2024 Emergency department Note Pt had a bowel movement, this RN & another RN cleaned pt. Carmen Crews RN 05/18/24 0454 [facility] 05-18-2024 Emergency department Note Pt transport has been requested Carmen Crews RN 05/18/24 0433 [facility] 05-18-2024 Emergency department Note Pt is asleep, w/ unlabored breathing Carmen Crews RN 05/18/24 0155 Carmen Crews RN 05/18/24 0156 [facility] 05-17-2024 History and physical note Attending [...] DECOMPRESSION performed by Opal Vigil MD at [facility] OR ORTHOPEDIC SURGERY Right [...] Resource Strain: Low Risk (04/24/2023) Received from [facility], [facility] Overall Financial Resource Strain (CARDIA) Difficulty [...] no m/r/g Abdomen: soft, nontender, BS+ SUPERVISOR SLATE SPLITTING: Awake and alert Ext: pulse 2+ DATA: [...] - DO NOT do CPR, intubation] [_] [DNR-PHOTOGRAPHIC ENLARGER OPERATOR - Comfort care only] [_] DNR form [...] Heydi Concepcion MD Division of Hospitalist Medicine [facility] ON TARGET [facility]IES Phone: 05-17-2024 History and physical note Attending [...] DECOMPRESSION performed by Opal Vigil MD at [facility] OR ORTHOPEDIC SURGERY Right [...] Resource Strain: Low Risk (04/24/2023) Received from [facility], [facility] Overall Financial Resource Strain (CARDIA) Difficulty [...] no m/r/g Abdomen: soft, nontender, BS+ SUPERVISOR SLATE SPLITTING: Awake and alert Ext: pulse 2+ DATA: [...] - DO NOT do CPR, intubation] [_] [DNR-PHOTOGRAPHIC ENLARGER OPERATOR - Comfort care only] [_] DNR form [...] Heydi Concepcion MD Division of Hospitalist Medicine [facility] documented in this encounter [facility] 05-17-2024 Physician Emergency department Note EMERGENCY [...] DECOMPRESSION performed by Opal Vigil MD at [facility] OR ORTHOPEDIC SURGERY Right [...] Resource Strain: Low Risk (04/24/2023) Received from [facility], [facility] Overall Financial Resource Strain (CARDIA) Difficulty [...] Response: Oriented Best Motor Response: Follows commands Am[place]on Coma Scale Score: 15 PHYSICAL EXAM ED [...] Culture. Procedure Abnormality Status --------- ------ Complete Urinalysis[[id number]] Abnormal Final result Please view results for these tests on the individual orders. COMPLETE URINALYSIS WITH REFLEX TO CULTURE Narrative: The following orders were created for panel order Urinalysis complete with reflex to Culture. Procedure Abnormality Status --------- ------ Complete Urinalysis[[id number]] Please view results for these tests on [...] Emergency Medicine Provider Terri Simeon PA-C 05/17/24 4378 [facility] 05-17-2024 Physician Emergency department Note Emergency Department Encounter [facility] EMERGENCY DE[facility] Patient: Anmol Reynolds : 1960 [...] for clarification.) Rodney Guerrero DO Acute Care [facility] Rodney Guerrero DO 05/18/24 0435 [facility] Phone: 05-15-2024 History of Present illness Narrative HISTORY OF PRESENT ILLNESS 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 HIPAA: Verbal permission granted from patient to discuss case, including protected health information, in front of family / friends in room at the time of the evaluation. Anmol Reynolds is a very pleasant 63 year old male here as new patient for a second opinion of MRI results. In 2019, pt had his first back surgery performed by [facility] which was an interbody fusion. 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 At that point, the hospital took the hardware out and did not replace it with the goal of treating the infection. 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 After the infection was treated, [facility] extended his fusion, decompressed the back, and [...] Resource Strain: Low Risk (04/24/2023) Received from [facility] Overall Financial Resource Strain (CARDIA) Difficulty of Paying Living Expenses: Not hard at all Food Insecurity: No Food Insecurity (05/05/2024) Received from [facility] Hunger Vital Sign Worried About Running Out of Food in the Last Year: Never true Ran Out of Food in the Last Year: Never true Transportation Needs: No Transportation Needs (05/05/2024) Received from [facility] PRAPARE - Transportation Lack of Transportation (Medical): No Lack of Transportation (Non-Medical): No Intimate Partner Violence: Not At Risk (05/05/2024) Received from [facility] Humiliation, Afraid, Rape, and Kick questionnaire Fear [...] Dr. Otis Mejia. documented in this encounter [facility] 05-13-2024 Telephone encounter Note Call received back from nurse Birdie who states blooc cultures were missed, but she will have them done on Thursday when the lab come back to the facility. [facility] 05-13-2024 Miscellaneous Notes Call received back from nurse Birdie who states blooc cultures were missed, but she will have them done on Thursday when the lab come back to the facility. Called and spoke to nurse Birdie at [facility] to obtain blood culture results that were ordered to be done on 05/06/24. She did state she cannot tell if they were done, she will call their lab and have the results faxed to us. If they were not done, she will have them obtained. I did ask that she please let us know what the outcome it. documented in this encounter [facility] 05-13-2024 Telephone encounter Note Called and spoke to nurse Birdie at [facility] to obtain blood culture results that were ordered to be done on 05/06/24. She did state she cannot tell if they were done, she will call their lab and have the results faxed to us. If they were not done, she will have them obtained. I did ask that she please let us know what the outcome it. [facility] 05-10-2024 Telephone encounter Note Pt calling requesting provider to follow up regarding MRI. Pt was unable to provide telephone, address or SSN. No information was provided at this time. [facility] 05-10-2024 Miscellaneous Notes Pt calling requesting provider to follow up regarding MRI. Pt was unable to provide telephone, address or SSN. No information was provided at this time. documented in this encounter [facility] 05-06-2024 Nurse Note Patient requested discharge transportation be provided by his brother, who drives a wheelchair accessible van. Spoke with nurse at [facility] who was aware that patient was returning this evening and was agreeable to patient being transported by private vehicle. IV Dc'michelle. Bedside RN called report. Patient transferred via everett lift to personal wheelchair and was escorted down to main entrance where his brother picked him up in van [facility] 05-06-2024 Nurse Note Patient requested discharge transportation be provided by his brother, who drives a wheelchair accessible van. Spoke with nurse at [facility] who was aware that patient was returning this evening and was agreeable to patient being transported by private vehicle. IV Dc'michelle. Bedside RN called report. Patient transferred via everett lift to personal wheelchair and was escorted down to main entrance where his brother picked him up in van documented in this encounter [facility] 05-06-2024 Note Formatting of this n ote is different from the original. Images from the original note were not included. Referral placed to [facility] Await review and response regarding ability to accept. TCC notified. [facility] 05-06-2024 Note Formatting of this n ote is different from the original. Images from the original note were not included. Referral placed to [facility] Await review and response regarding ability to accept. TCC notified. Electronically signed by QUENCHING CAR OPERATOR Juana Villagomezh [facility] 05-06-2024 Miscellaneous Notes Images from the original note were not included. Referral placed to [facility] Return - [facility] Await review and response regarding ability to accept. TCC notified. Addendum to earlier note: Pt to be discharged (returned) back to [facility]. Bedside RN aware, SW aware and will plan transport. Referral placed to [facility] Return - [facility] via [facility] per TCC request. Await review and response regarding ability to accept. TCC notified. Electronically signed by CLAYTON Villagomezh Care Managment Initial Assessment Date: 05/06/2024 Patient Name: Anmol Reynolds : 1960 Patient Information Source of Information: Patient Cognition/Language: WFL - Within Functional Limits Permission given to speak with patient student services representative/caregiver as indicated: Confirmation of Payer [...] Levels: Facility: Nursing Facility Skilled Facility Name: [facility] Plan to Return: Yes Lives with: Other (Comment) ([facility]) Support Systems: Parent, Family members, [...] Assistance Provider Meal Prep Assistance Provider Name: [facility] Laundry/Cleaning: Assistance Provider Laundry/Cleaning Assistance Provider Name: [facility] Finances/Bill Paying: Independent Communication: Independent Types of Care Services/Equipment Utilized Care Services: Dialysis Type: Durable Medical Equipment: Wheelchair (standard or power), Hospital Bed, Other (Comment) DME Provider: Santana catheter (chronic) Patient's Goal/Discharge Plan Patient expects to be discharged to: Return to [facility] Discharge Planning Actions: Long Term Facility referral indicated [place]: [place] discussed Patient's Choice Rights and [...] for kidney stones bilaterally. Pt is from [facility] and is agreeable to return. Pt states his mother is across the [place] from him. He has a chronic santana and R picc in place. On iv ceftriaxone. Regular diet. Pt had PT eval ordered. Met with pt at bedside; explained role of tcc. Pt wanting to return to [facility] Has chronic santana catheter. He has an electric w/c. Anticipate discharge (return) to [facility] today if medically stable. Anel Lima [...] Ebl: Drains 6fr X 24cmJJ Santana 16 [place] Santana catheter Specimen: Bladder calculus for stone [...] MAR for meds. documented in this encounter [facility] 05-06-2024 Hospital Discharge instructions Bianca Rodgers [...] Unit/Room#: H-5133/H-5133 A Discharging Unit Phone Number: [phone] Emergency Contact: Extended Emergency Contact Information Primary [...] DECOMPRESSION performed by Opal Vigil MD at [facility] OR ORTHOPEDIC SURGERY Right [...] assistance Toileting Total assistance Feeding Minimal assistance Research Assistant Professor Minimal assistance Med Delivery yes Wound Care [...] are sent with patient): wheelchair RN SIGNATURE: {E-signature:24886} CASE MANAGEMENT/SOCIAL WORK SECTION Inpatient Status Date: Discharging to Facility/ Agency Name: Address: Phone: Fax: Dialysis Facility (if applicable) Name: Address: Dialysis Schedule: Phone: Fax: Glue Spreader/Billet Heater signature: {E-signature:80082} PHYSICIAN SECTION Name: Anmol Reynolds Prognosis: {Rehab Prognosis:05422} Condition at Discharge: {Patient Condition:97563} Rehab Potential (if transferring to Rehab): {Rehab Prognosis:69922} Recommended Labs or Other Treatments After Discharge: The individual is being admitted to a nursing facility directly from an [facility] or a unit of a [facility] specialty center at [facility] that is not operated by or licensed by [facility] under section 5119.14 or 5160-3-15.1 5 The individual requires the level of services provided by a nursing facility for the condition for which he or she was treated in the hospital and, Physician Certification: I certify the above information and transfer of Anmol Reynolds is necessary for the continuing treatment of the diagnosis listed and that he requires {ADELINE Level of Care:36305} for {greater less than:40688} 30 days. Update Admission H&P: {ADELINE Changes in H&P:03376} PHYSICIAN SIGNATURE: {E-signature:73642} The following attachments cannot be sent through Care Everywhere.Laser Lithotripsy for Kidney Stones Discharge Instructions (Montserratian)How to Care for Your Santana Catheter (Montserratian)documented in this encounter [facility] 05-06-2024 Note Formatting of this n ote might be different from the original. Addendum to earlier note: Pt to be discharged (returned) back to [facility]. Bedside RN aware, VIVIAN aware and will plan transport. [facility] 05-06-2024 Note Formatting of this n ote might be different from the original. Addendum to earlier note: Pt to be discharged (returned) back to [facility]. Bedside RN aware, VIVIAN aware and will plan transport. [facility] 05-06-2024 Hospital course Narrative Images from the original note were not included. 48 Hour Discharge Summary Note Patient ID: Anmol Reynolds [id number] 63 y.o. 1960 Admit date: 05/05/2024 Discharge [...] MD. PGY-2 Urology documented in this encounter [facility] 05-06-2024 Note Formatting of this n ote might be different from the original. Referral placed to [facility] request. Await review and response regarding ability to accept. TCC notified. Electronically signed by [facility] Juana Edmonds [facility] 05-06-2024 Note Formatting of this n ote might be different from the original. [facility] request. Await review and response regarding ability to accept. TCC notified. Electronically signed by [facility] Juana Edmonds [facility] 05-06-2024 Note Formatting of this n ote might be different from the original. Care Managment Initial Assessment Date: 05/06/2024 Patient Name: Anmol Reynolds : 1960 Patient Information Source of Information: Patient Cognition/Language: WFL - Within Functional Limits Permission given to speak with patient student services representative/caregiver as indicated: Confirmation of Payer with patient/family: Yes Payer Name: Medicare A/B [place]: No Confirmation of Primary Care Physician: Confirmed PCP Name: Ambrosio Monroy, DO Seen in last 2 years?: Yes Primary Caregiver: Self If assistance needed, confirmed caregiver ready, willing and able to care for patient at discharge: Confirmed with: Living Arrangements Current Residence: Number of Floors Number of Entry Steps: Bed/Bath Levels: Facility: Nursing Facility Skilled Facility Name: [facility] Plan to Return: Yes Lives with: Other (Comment) ([facility]) Support Systems: Parent, Family members, [...] expects to be discharged to: Return to [facility] Discharge Planning Actions: Long Term Facility referral indicated [place]: [place] discussed Patient's Choice Rights and [...] for kidney stones bilaterally. Pt is from [facility] and is agreeable to return. Pt states his mother is across [place] from [place]. He has a chronic santana and R picc in place. On iv ceftriaxone. Regular diet. Pt had PT eval ordered. Met with pt at bedside; explained role of tcc. Pt wanting to return to [facility] Has chronic santana catheter. He has an electric w/c. Anticipate discharge (return) to [facility] today if medically stable. Anel Lima RN T [facility] 05-06-2024 Note Formatting of this n ote might be different from the original. Care Managment Initial Assessment Date: 05/06/2024 Patient Name: Anmol Reynolds : 1960 Patient Information Source of Information: Patient Cognition/Language: WFL - Within Functional Limits Permission given to speak with patient student services representative/caregiver as indicated: Confirmation of Payer with patient/family: Yes Payer Name: Medicare A/B [place]: No Confirmation of Primary Care Physician: Confirmed PCP Name: Ambrosio Monroy DO Seen in last 2 years?: Yes Primary Caregiver: Self If assistance needed, confirmed caregiver ready, willing and able to care for patient at discharge: Confirmed with: Living Arrangements Current Residence: Number of Floors Number of Entry Steps: Bed/Bath Levels: Facility: Nursing Facility Skilled Facility Name: [facility] Plan to Return: Yes Lives with: Other (Comment) ([facility]) Support Systems: Parent, Family members, Friends/neighbors Activities [...] Assistance Provider Meal Prep Assistance Provider Name: [facility] Laundry/Cleaning: Assistance Provider Laundry/Cleaning Assistance Provider Name: [facility] Finances/Bill Paying: Independent Communication: Independent Types of Care Services/Equipment Utilized Care Services: Dialysis Type: Durable Medical Equipment: Wheelchair (standard or power), Hospital Bed, Other (Comment) DME Provider: Santana catheter (chronic) Patient's Goal/Discharge Plan Patient expects to be discharged to: Return to [facility] Discharge Planning Actions: Long Term Facility referral indicated [place]: [place] discussed Patient's Choice Rights and [...] for kidney stones bilaterally. Pt is from [facility] and is agreeable to return. Pt states his mother is across [place]. He has a chronic santana and R picc in place. On iv ceftriaxone. Regular diet. Pt had PT eval ordered. Met with pt at bedside; explained role of tcc. Pt wanting to return to [facility] Has chronic santana catheter. He has an electric w/c. Anticipate discharge (return) to [facility] today if medically stable. Anel Lima RN T [facility] 05-06-2024 History of Present illness Narrative UROLOGY PROGRESS NOTE PATIENT NAME: Anmol Franco Given DATE OF : 1960 ADMISSION DATE: 05/05/2024 TODAY'S DATE: 05/06/2024 Subjective [facility] and b/l ureteral [...] MD PGY-2 Urology documented in this encounter [facility] 05-05-2024 Plan of care note The [...] Recommendations to address these barriers include none. [facility] 05-05-2024 Note Formatting of this n ote might be different from the original. Belongings returned to patient bedside. Meal tray ordered [facility] 05-05-2024 Note Formatting of this n ote might be different from the original. Belongings returned to patient bedside. Meal tray ordered [facility] 05-05-2024 Note Formatting of this n [...] Ebl: Drains 6fr X 24cmJJ Santana 16 [place] Santana catheter Specimen: Bladder calculus for stone [...] hopefully removal of the right stent INDICATIONS: Anmlo Reynolds , is a 63 y.o. male [...] removal. Dashawn Grimm MD 05/06/24 5:11 PM [facility] 05-05-2024 Note Formatting of this n [...] Ebl: Drains 6fr X 24cmJJ Santana 16 [place] Santana catheter Specimen: Bladder calculus for stone [...] removal. Dashawn Grimm MD 05/06/24 5:11 PM [facility] 05-05-2024 Attending History and physical note [...] Source Note - Radha Lucas APRN - DEMURRAGE AGENT - 04/27/2024 2:00 PM EDT Images from the original note were not included. Comprehensive Pre Surgical History and Physical ? Name: Anmol Reynolds : 1960 (Age-63 y.o.) Date of Service: Pt seen/examined on 04/27/2024 Procedure Information Date/Time: 05/05/24 1230 Procedures: CYSTOSCOPY (Urethra) - 120 MINS POSSIBLE CYSTOLITHOLAPAXY (Urethra) BILATERAL URETEROSCOPY ASTRID LASER LITHOTRIPSY (Bilateral: Urethra) BILATERAL URETERAL STENT CHANGE (Bilateral: Urethra) Location: [facility] OR [address] [place] [address] Operating Room Surgeons: Dashawn Grimm MD Chief [...] days. Denies prior problems with anesthesia. No [facility] problems with anesthesia Denies c/o chest pain, dizziness, sob, syncope, palpitations, tachycardia, cough, wheezing, nvd, fever or chills Wheelchair bound (paraplegia)- No chest pain or sob with normal activity(upper body activity) Do you have a history of chronic opioid use? oxycodone per pain management ? Denies history of [place], CAD, CHF, CVA, seizures, asthma/copd, WEST, PE/DVT [...] date: Other reduced mobility No date: Paraplegia ([facility]) No date: Sciatica No date: Spinal stenosis of lumbar region with neurogenic claudication No date: Type 2 diabetes mellitus without complication ([facility] ([facility]) No date: Urinary calculus, unspecified No date: UTI (urinary tract infection) Past Surgical History: Past Surgical History: No date: ANKLE SURGERY; Right Comment: He has a titanium plate to the right ankle No date: KNEE SURGERY; Left Comment: ACL No date: KNEE SURGERY; Left Comment: removal of screw 10/24/2020: LAMINECTOMY; Left Comment: LEFT BILATERAL L2-3-4-5 DECOMPRESSION performed by Opal Viigl MD at [facility] No date: ORTHOPEDIC SURGERY; Right Comment: removal [...] QT Interval 426 QTC Interval 477 P Grand Chain 10 QRS Grand Chain 28 T Wave Grand Chain 28 DC Interval 159 Impression Sinus rhythm Electronically Signed On 04-20-2024 15:22:00 EDT by Jax Wiggins ECHO and EF:None on file METS __Wheelchair bound (paraplegia)- No chest pain or sob with normal activity (upper body activities) Electronically signed by: Radha Lucas APRN - DEMURRAGE AGENT Date: 04/27/2024 at 3:18 PM [facility] Phone: 05-05-2024 History and physical note Images [...] Source Note - Radha Lucas APRN - DEMURRAGE AGENT - 04/27/2024 2:00 PM EDT Images from the original note were not included. Comprehensive Pre Surgical History and Physical ? Name: Anmol Reynolds : 1960 (Age-63 y.o.) Date of Service: Pt seen/examined on 04/27/2024 Procedure Information Date/Time: 05/05/24 1230 Procedures: CYSTOSCOPY (Urethra) - 120 MINS POSSIBLE CYSTOLITHOLAPAXY (Urethra) BILATERAL URETEROSCOPY ASTRID LASER LITHOTRIPSY (Bilateral: Urethra) BILATERAL URETERAL STENT CHANGE (Bilateral: Urethra) Location: [address] Operating Room Surgeons: Dashawn Grimm MD [...] days. Denies prior problems with anesthesia. No [facility] problems with anesthesia Denies c/o chest pain, dizziness, sob, syncope, palpitations, tachycardia, cough, wheezing, nvd, fever or chills Wheelchair bound (paraplegia)- No chest pain or sob with normal activity(upper body activity) Do you have a history of chronic opioid use? oxycodone per pain management ? Denies history of [place], CAD, CHF, CVA, seizures, asthma/copd, [place], PE/DVT [...] DECOMPRESSION performed by Opal Vigil MD at [facility] OR No date: ORTHOPEDIC [...] QT Interval 426 QTC Interval 477 P Grand Chain 10 QRS Grand Chain 28 T Wave Grand Chain 28 DC Interval 159 Impression Sinus rhythm Electronically Signed On 04-20-2024 15:22:00 EDT by Jax Wiggins ECHO and EF:None on file METS __Wheelchair bound (paraplegia)- No chest pain or sob with normal activity (upper body activities) Electronically signed by: Radha Lucas APRN - DEMURRAGE AGENT Date: 04/27/2024 at 3:18 PM documented in this encounter [facility] 05-05-2024 Note Formatting of this n ote might be different from the original. Spoke with the nurse Aguilar from the facility pt came from. The nurse confirmed that pt did not have anything to eat after midnight and only sips of water with morning meds. See MAR for meds. [facility] 05-05-2024 Note Formatting of this n ote might be different from the original. Spoke with the nurse Aguilar from the facility pt came from. The nurse confirmed that pt did not have anything to eat after midnight and only sips of water with morning meds. See MAR for meds. [facility] 05-04-2024 Telephone encounter Note R/S patient for 06/14 at 8:30a, [facility] 05-04-2024 Miscellaneous Notes R/S patient for 06/14 at 8:30a, [facility] Name of Caller: [facility] Contact Reason for Appointment: Reschedule 04/21/24 appointment Office Name: Interventional Pain Management documented in this encounter [facility] 05-04-2024 Telephone encounter Note Name of Caller: Doug Contact Reason for Appointment: Reschedule 04/21/24 appointment Office Name: Interventional Pain Management [facility] 04-27-2024 Telephone encounter Note Call placed to pt. No answer no VM set up. No return calls from [facility]. Pt is scheduled for PAT today. [facility] 04-27-2024 Miscellaneous Notes Call placed to pt. No answer no VM set up. No return calls from [facility]. Pt is scheduled for PAT today. Call placed to pt to advise of SX information. No answer, unable to LVM. If pt calls back into office please advise of below information or transfer to me. Doctor: JORGE OLIVA (arrive 15 min early): 04/27 @2pm [facility] PAT instructions: Please bring photo ID, insurance card, list of all current medications Surgery: 05/05 @12:30 [facility] Surgery arrival time: 10:30am Surgery instructions: Nothing [...] Bladder calculus, bilateral ureteral stones FACILITY: [facility] or [facility] DETAILS: OUTPT ANESTHESIA: GENERAL TIME REQUESTED: 2hr DATE REQUESTED: Must be minimum of 2 weeks from today due to infection SURGERY ORDERS: Already placed by Joe Hammer NP on 04/15/2024 POST OP FOLLOW UP: cysto stent removal 2 wks documented in this encounter [facility] 04-26-2024 Telephone encounter Note Called pt and discussed his MRI L spine results. He has SCI rehab follow up scheduled. Recommended Spine Surgery opinion. No change in clinical condition from last visit. Vaishali Pierre DO [facility] 04-26-2024 Miscellaneous Notes Called pt and discussed [...] message. I called nursing staff at the [place] where he lives and was able to leave a message with nursing regarding his MRI findings and that I would like to speak with him and recommendations to schedule visit with [facility] rehab and spine surgery. Vaishali Pierre DO Telephoned [place] pt at dinner and medical office receptionist assistant states she cannot pull pt [...] to the above findings.He does not have [employer] set up to message. Vaishali Pierre DO documented in this encounter [facility] 04-26-2024 Telephone encounter Note Called pt again. Staff at the [facility] stated he was unable to come to the phone and asked for call back later in the day. Vaishali Pierre DO [facility] 04-25-2024 Telephone encounter Note Called pt and reached staff, but he was unable to come to the phone. Will try again tomorrow. Vaishali Pierre DO [facility] 04-25-2024 Telephone encounter Note Call placed to pt to advise of SX information. No answer, unable to LVM. If pt calls back into office please advise of below information or transfer to me. Doctor: JORGE OLIVA (arrive 15 min early): 04/27 @2pm [facility] PAT instructions: Please bring photo ID, insurance [...] counter vitamins 3 days prior to surgery [facility] 04-25-2024 Miscellaneous Notes Call placed to pt to advise of SX information. No answer, unable to LVM. If pt calls back into office please advise of below information or transfer to me. Doctor: JORGE OLIVA (arrive 15 min early): 04/27 @2pm [facility] PAT instructions: Please bring photo ID, insurance card, list of all current medications Surgery: 05/05 @12:30 [facility] Surgery arrival time: 10:30am Surgery instructions: Nothing [...] Bladder calculus, bilateral ureteral stones FACILITY: [facility] DETAILS: OUTPT ANESTHESIA: GENERAL TIME REQUESTED: 2hr DATE REQUESTED: Must be minimum of 2 weeks from today due to infection SURGERY ORDERS: Already placed by Joe Hammer NP on 04/15/2024 POST OP FOLLOW UP: cysto stent removal 2 wks documented in this encounter [facility] 04-21-2024 Telephone encounter Note Call placed to pt but no answer at this time. Pt does not have VM set up so unable to LVM. No MyChart set up. Will continue to reach out to pt. [facility] 04-20-2024 Miscellaneous Notes Dc to [facility] this evening at 6:30. Claudio messaged the facility with dc time and left a voicemail message for patients brother with dc time and arrangements. Re faxed opat to [phone]. Discharge med list transmitted to return back to [facility] via [facility] per T[facility] request. Images from the original note were not included. Care Management Progress Note Chart reviewed. Patient remains on . Discussed patient in rounds. Noted discharge order. Noted patient received PICC placement today. Faxed opat for Ertapenem IV to [phone]. QUENCHING CAR OPERATOR tasked to send final updates to [facility]. SW tasked to arrange transportation today when ready. Patient will need covid test resulted before leaving hospital. TCC section of ADELINE completed. DC plan: return to [facility], no auth needed. Bed hold. Discharge Milestones and Delays Expected date/time: 04/20/2024 Medically ready since: 04/20/2024 Disposition: Long Term Facility Transport status: No current request Discharge Milestones Place discharge order Complete med reconciliation Case mgmt discharge readiness Clinical Stability Diagnostic Workup Imaging Results Patient Education Complete Expected Discharge History Expected Date/Time Set By Reviewed At 04/20/2024 Otis Mckenzie DO 04/20/2024 11:42 AM 04/18- From [facility]. 04/20- Getting a picc today for IV antibiotics, [facility]." 04/20/2024 LINDSAY Gallardo 04/20/2024 9:34 AM 04/20/2024 LINDSAY Gallardo 04/19/2024 9:13 AM 04/18- From [facility]." 04/20/2024 Chrissie Rodrigues RN 04/19/2024 7:55 [...] Sent updated notes to return back to [facility] via [facility] per [facility] request. Await review and response regarding [...] chronic santana in place. Pt is from [facility]. Tasked QUENCHING CAR OPERATOR to send updated clinicals to facility. Pt is a bedhold, no auth required to return. Will however need a covid test before returning to facility. Discharge plan is [facility] when medically ready. digital sales manager to follow and assist as needed. [...] of Information: Patient Name/Contact Information: Ronald Reynolds [phone] brother and daughter Sumi Reynolds Cognition/Language: WFL - Within Functional Limits Permission given to speak with patient student services representative/caregiver as indicated: Yes Confirmation of Payer with patient/family: Yes Payer Name: medicare and medicaid : No Confirmation of Primary Care Physician: Confirmed PCP Name: house doctor at [facility]-Dr. Dupont Seen in last 2 years?: Yes Primary Caregiver: Other (Comment) If assistance needed, confirmed caregiver ready, willing and able to care for patient at discharge: Yes Confirmed with: staff at f Living Arrangements Current Residence: (ecf) Number of Floors 1 Number of Entry Steps: (level) Bed/Bath Levels: Both first floor Facility: [facility] Facility Name: [facility] Plan to Return: Yes Lives with: (ecf) Support Systems: Family members, Comments (Other) (facility) Activities of Daily Living Ambulation: Total Care (everett lift to wc) Bathing/Dressing: Total Care Elimination/Continence/Toileting: Total Care Feeding: Assistance Who Assists with Activities of Daily Living: longterm staff Instrumental Activities of Daily Living Prescription Coverage: Yes Pharmacy Used: [facility] Medication Management: Medication dispenser Who assists with medication securing and setup?: [facility] Transportation/Shopping: Assistance Provider Transportation/Shopping Assistance Provider Name: [facility] Transportation Mode: Payer provided transport service Needs Assistance with Transportation at Discharge: Yes Meal Preparation: Assistance Provider Meal Prep Assistance Provider Name: [facility] Laundry/Cleaning: Assistance Provider Laundry/Cleaning Assistance Provider Name: [facility] Finances/Bill Paying: Assistance Provider Finances/Bill Payer Assistance Provider Name: brother Communication: Independent, Emergency Call System Types of Care Services/Equipment Utilized Care Services: Dialysis Type: NA Durable Medical Equipment: Wheelchair (standard or power) Patient's Goal/Discharge Plan Patient expects to be discharged to: return to [facility] Discharge Planning Actions: Continue to follow Patient's Choice Rights and [employer] and Collaborative Relationships Disclosed as Indicated for Post-Acute Care: Yes Interdisciplinary Team Engagement: Social Work Referral for: Additional Information: Inpatient status from [facility] with sepsis. Urology consulted due to [...] of paraplegia and states has been at [facility] for a year and wishes to return upon discharge. Tasked QUENCHING CAR OPERATOR to place referral in [facility]. He is everett lift to at facility. Will need to monitor for antibiotic needs upon discharge. Did call facility to obtain daughter's phone number for patient and updated primary care nurse with this information. .. Isabel Kirby RN Referral placed to return back to [facility] via [facility] per TCC request. Await review and [...] right 7 x 26 double-J stent Santana-22 [place] coud catheter Specimen: Complications None; patient tolerated [...] 6 x 26 stent was passed. 22 [place] coud catheter was placed to straight drain. [...] bladder. The bladder was left full. 22 [place] coud catheter was placed into the bladder. He was awakened and transferred to the recovery room. ICU was consulted for admission due to the hypotension and need for pressors during the case as well as the lactic acidosis. Dashawn Grimm MD 04/14/24 10:49 PM documented in this encounter [facility] 04-20-2024 Hospital course Narrative Images from [...] CONSULT TO INFECTIOUS DISEASES IP CONSULT TO VAULT MECHANIC Discharge Instructions: Diet: Adult diet Regular; 5 [...] 79* 88* 121* BMP: Recent Labs 04/18/24 0704/19/248 04/20/24 0359 NA 140 138 138 K 3.1* 3.5 3.8 CL 105 107 108* CO2 27 26 23 BUN 15 14 14 CREATININE 0.51* 0.44* 0.44* GLUCOSE 74 153* 284* CALCIUM 7.8* 7.9* 7.6* ANIONGAP 7 5 6 LIVER PROFILE: Recent Labs 04/18/24 0704/19/248 04/20/24 0359 AST 18 19 19 ALT [...] Complexity: follow up within 7-14 calendar days (91527) [x] Severe Complexity: follow up within 7 calendar days (18384) Follow up Testing, Pending results or Referrals [...] frame. Signed: Otis Mckenzie DO [facility] 04/20/2024, 11:42 AM Total time Spent on Discharge: 32 minutes documented in this encounter [facility] 04-20-2024 Hospital Discharge instructions Faby Maxwell [...] DECOMPRESSION performed by Opal Vigil MD at [facility] OR ORTHOPEDIC SURGERY PLACE [...] assistance Toileting Total assistance Feeding Minimal assistance Research Assistant Professor Minimal assistance Med Delivery yes Wound Care Documentation and Therapy: Wound/Incision 04/14/24 Pressure Injury Sacrum (Active) Site Assessment Unable to assess 04/19/242039 [place]-Wound Assessment Clean;Dry;Intact 04/19/24 204 Drainage Description Red 04/19/24 1651 Odor None 04/18/24 0328 Drainage Amount Scant 04/19/24 1651 Treatments Cleansed;Zinc - oxide paste 04/19/24 1651 Primary Dressing Foam 04/19/24 1651 Dressing Status Clean, dry & intact 04/19/24 204 Number of days: 5 Wound/Incision 04/14/24 Foot Anterior;Right (Active) Wound Image 04/14/24 2258 Number of days: 5 Wound/Incision 04/14/24 Foot Anterior;Left (Active) Wound Image 04/14/24 2259 Number of days: 5 Elimination: Continence: [...] Date: 04-14-2024 Discharging to Facility/ Agency Name: [facility] Address: [address] [place] [address] Dialysis Facility (if applicable) Name: Address: Dialysis Schedule: Phone: Fax: Glue Spreader/Billet Heater signature: {E-signature:20516} ICIAN SECTION Name: Anmol Reynolds Prognosis: {Rehab Prognosis:08386} Condition at Discharge: {Patient Condition:39998} Rehab Potential (if transferring to Rehab): excellent Recommended Labs or Other Treatments After Discharge: blood cultures to be obtained on 05/06/24 The individual is being admitted to a nursing facility directly from an [facility] or a unit of a [facility] specialty center at [facility] that is not operated by or licensed by [facility] under section 5119.14 or 5160-3-15.1 5 The individual requires the level of services provided by a nursing facility for the condition for which he or she was treated in the hospital and, Physician Certification: I certify the above information and transfer of Anmol Reynolds is necessary for the continuing treatment of the diagnosis listed and that he requires fpc facility for less than 30 days. Update Admission H&P: No change in H&P PHYSICIAN SIGNATURE: documented in this encounter [facility] 04-20-2024 Nurse Note Patient tolerated procedure well. Transferring back to nursing floor. Patient arrived from [facility], AMOL Enriquez was in to speak with the patient regarding PICC, consent was obtained. Patient was placed supine on exam table prepped and draped in sterile fashion. Telemetry monitors placed, vitals being monitored. documented in this encounter [facility] 04-19-2024 History of Present illness Narrative [...] Fluid Accumulation: Mild Extremities (+2 kenroy LE) Chief Lifestyle Officer Strength: Not Performed Nutrition Assessment: per MD [...] On: Kcal/kg Weight Used for Energy Requirements: [place] Weight for Energy Calculation (kg): 82 kg Total Energy Requirements (kcals/day): 6511-8683 (28-30) Weight Used for Protein Requirements: [place] Weight in Kg Used for Protein Requirements: [...] (183 lb) % Weight Change (Calculated): 12.2 [place] Body Weight (lbs) (Calculated): 196 lbs [place] Body Weight (Kg) (Calculated): 89 kg % [place] Body Weight (Calculated): 104.7 % BMI (kg/m2) (Calculated): 26.5 Weight Adjustment For: Paraplegia % Weight Adjustment: 7.5 - Paraplegia Total Adjusted Percentage (Calculated): 7.5 Adjusted [place] Body Weight (lbs) (Calculated): 181.3 lbs Adjusted [place] Body Weight (kg) (Calculated): 82.41 kg Adjusted [...] Continue current diet Zonia Dumont RD Contact: *[phone] or via Secure Chat Images from the original note were not included. [facility] - Infectious Diseases Attending Progress Note Subjective: [...] person, place, and time. Labs: Recent Labs 04/17/2434104/18/2471104/19/248 NA 135 140 138 K 3.2* 3.1* 3.5 CL 107 105 107 CO2 23 27 26 BUN 23* 15 14 CREATININE 0.58* 0.51* 0.44* GLUCOSE 144* 74 153* CALCIUM 7.9* 7.8* 7.9* PROT 5.6* 6.0* 6.0* BILITOT 0.7 0.8 0.6 ALKPHOS 128* 123 119 AST 22 18 19 ALT 22 18 16 Recent Labs 04/17/2434104/18/2471104/19/24 0428 WBC 7.9 8.4 9.2 HGB 11.5* 12.1* 11.6* HCT 35.4* 36.6* 35.0* PLT 77* 79* 88* LYMPHOPCT 16.8 13* 13* MONOPCT 5.5 8 8 BASOPCT 0.1 -- 1 NEUTROABS 6.0 -- -- Micro: No results for input(s): "COVID19" in the last 72 hours. 04/16/2024 0654 04/16/2024 1101 Blood culture Site #1 - Assess for effectiveness of treatment [[id number]] Blood, Venous Preliminary result Component Value Blood Culture Blood culture incubation started P 04/16/2024 0654 04/16/2024 1101 Blood culture Site #2 - Assess for effectiveness of treatment [[id number]] Blood, Venous Preliminary result Component Value Blood Culture Blood culture incubation started P 04/15/2024 1713 04/15/2024 2208 MRSA by PCR [[id number]] (Abnormal) ESwab from Nasal Final result Component Value Staphylococcus aureus Detected Abnormal mecA gene Not Detected 04/15/2024 0103 04/16/2024 1135 Urine culture [[id number]] (Abnormal) Urine, Clean Catch Preliminary result Component Value Urine Culture Normal urogenital gosia present P 50,000-90,000 CFU/mL Providencia stuartii Abnormal P 04/14/2024 1631 04/16/2024 1204 Blood culture Site #1 - Suspected Infection [[id number]] (Abnormal) Blood, Venous Preliminary result Component Value Blood Culture Proteus mirabilis Panic P Providencia stuartii Panic P Morganella morganii Panic P 04/14/2024 1631 04/16/2024 1204 Blood culture Site #2 - Suspected Infection [[id number]] (Abnormal) Blood, Venous Preliminary result Component Value Blood Culture Morganella morganii Panic P For identification and/or sensitivity, refer to culture collected on: 04/14/24 at 16:31, [id number]. This is an edited result. Previous organism was Gram-negative bacilli on 04/15/2024 at 0835 EDT. 04/14/2024 1631 04/15/2024 0828 Blood Culture Identification - Anaerobic [[id number]] (Abnormal) Blood, Venous Final result Component Value Proteus species Detected Abnormal Lines: PIV Radiography/Echo/Other: Procedure Component Value Units Date/Time FL pyelogram retrograde [[id number]] Resulted: 04/14/247 Order Status: Completed Updated: 04/14/242216 Narrative: There is no interpretation needed for this exam. CT abdomen pelvis wo IV contrast [[id number]] Collected: 04/14/241928 Order Status: Completed Updated: 04/14/241938 Narrative: Patient Name: ANMOL REYNOLDS : [address] [facility]#: [id number] Exam Date/Time: 04/14/2024 19:28 Procedure: CT ABDOMEN PELVIS WO IV CONTRAST Ordering Provider: [facility] Reason For Exam: Sepsis CT ABDOMEN AND [...] 7:37 PM EDT XR chest 1 view [[id number]] Collected: 04/14/241650 Order Status: Completed Updated: 04/14/241652 Narrative: Patient Name: ANMOL [facility]YNOLDS : 1960 [id number] Exam Date/Time: 04/14/2024 16:39 Procedure: XR CHEST [...] no fungi. Discontinue fluconazole. Continue meropenem through typing office worker, then, tomorrow change to ertapenem (1st dose [...] for open encounter. Hospitalist Progress Note 04/19/2024 [phone]: Please page me ([phone]) for patient care issues. [phone]: Please page [facility] Hospitalist for any issues. Subjective: Admit Date: 04/14/2024 PCP: AMBRSOIO MONROY DO Room#: B2-254/B2-254 A Interval History: [...] Type 2 diabetes mellitus without complication (CMS/HCC) ([facility]) LABS: CBC: Recent Labs 04/17/2434104/18/2471104/19/24427 WBC 7.9 [...] of Hospitalist Medicine Inpatient Medical Services/[facility] PAGER: Epic chat Hospitalist Progress Note 04/18/2024 [phone]: Please page me ([phone]) for patient care issues. [phone]: Please page [facility] Hospitalist for any issues. Subjective: Admit Date: 04/14/2024 PCP: AMBROSIO MONROY DO Room#: B2-254/B2254 A Interval History: No overnight issues. Denies chest pain or sob. No abdominal pain, nausea, vomiting. No fevers or chills. Adult diet Regular; 5 carb choices (75 gm/meal) @[id number]@ 24HR INTAKE/OUTPUT: Intake/Output Summary (Last 24 hours) at 04/18/2024 1214 Last data filed at 04/18/2024 0500 Gross per 24 hour Intake 700 ml Output 3850 ml Net -3150 ml Past Medical History: Past Medical History: Diagnosis Date Abscess, perineum Chronic back pain Hip sprain Hyperlipidemia Hypertension Neuropathy Osteoarthritis Sciatica Type 2 diabetes mellitus without complication ([facility]/HCC) ([facility]) LABS: CBC: Recent Labs 04/16/24 0515 04/17/24 03404/18/24711 WBC 11.9* 7.9 8.4 RBC 3.91* [...] of Hospitalist Medicine Inpatient Medical Services/[facility] PAGER: Epic chat Images from the original note were not included. [facility] - Infectious Diseases Attending Progress Note Subjective: [...] #1 - Assess for effectiveness of treatment [[id number]] Blood, Venous Preliminary result Component Value Blood Culture Blood culture incubation started P 04/16/2024 0654 04/16/2024 1101 Blood culture Site #2 - Assess for effectiveness of treatment [[id number]] Blood, Venous Preliminary result Component Value Blood Culture Blood culture incubation started P 04/15/2024 1713 04/15/2024 2208 MRSA by PCR [[id number]] (Abnormal) ESwab from Nasal Final result Component Value Staphylococcus aureus Detected Abnormal mecA gene Not Detected 04/15/2024 0103 04/16/2024 1135 Urine culture [[id number]] (Abnormal) Urine, Clean Catch Preliminary result Component Value Urine Culture Normal urogenital gosia present P 50,000-90,000 CFU/mL Providencia stuartii Abnormal P 04/14/2024 1631 04/16/2024 1204 Blood culture Site #1 - Suspected Infection [[id number]] (Abnormal) Blood, Venous Preliminary result Component Value Blood Culture Proteus mirabilis Panic P Providencia stuartii Panic P Morganella morganii Panic P 04/14/2024 1631 04/16/2024 1204 Blood culture Site #2 - Suspected Infection [[id number]] (Abnormal) Blood, Venous Preliminary result Component Value Blood Culture Morganella morganii Panic P For identification and/or sensitivity, refer to culture collected on: 04/14/24 at 16:31, [id number]. This is an edited result. Previous organism was Gram-negative bacilli on 04/15/2024 at 0835 EDT. 04/14/2024 1631 04/15/2024 0828 Blood Culture Identification - Anaerobic [[id number]] (Abnormal) Blood, Venous Final result Component Value Proteus species Detected Abnormal Lines: PIV Radiography/Echo/Other: Procedure Component Value Units Date/Time FL pyelogram retrograde [[id number]] Resulted: 04/14/242216 Order Status: Completed Updated: 04/14/242216 Narrative: There is no interpretation needed for this exam. CT abdomen pelvis wo IV contrast [[id number]] Collected: 04/14/241928 Order Status: Completed Updated: 04/14/241938 Narrative: Patient Name: ANMOL REYNOLDS : [address] [facility]#: [id number] Exam Date/Time: 04/14/2024 19:28 Procedure: CT ABDOMEN PELVIS WO IV CONTRAST Ordering Provider: EMS, [facility]O Reason For Exam: Sepsis CT ABDOMEN AND [...] 7:37 PM EDT XR chest 1 view [[id number]] Collected: 04/14/241650 Order Status: Completed Updated: 04/14/241652 Narrative: Patient Name: ANMOL REYNOLDS : 1960 [id number] Exam Date/Time: 04/14/2024 16:39 Procedure: XR CHEST 1 VIEW Ordering Provider: [facility] ROMEO Reason For Exam: sepsis INDICATION: Sepsis. VIEWS: [...] for open encounter. Hospitalist Progress Note 04/17/2024 [phone]: Please page me ([phone]) for patient care issues. [phone]: Please page [facility] Hospitalist for any issues. Subjective: Admit Date: 04/14/2024 PCP: AMBROSIO MONROY DO Room#: 222-04/222-04 A Interval History: No overnight issues. Denies chest pain or sob. No abdominal pain, nausea, vomiting. No fevers or chills. Adult diet Regular; 5 carb choices (75 gm/meal) @[id number]@ 24HR INTAKE/OUTPUT: Intake/Output Summary (Last 24 hours) at 04/17/2024 0846 Last data filed at 04/17/2024 0621 Gross per 24 hour Intake 1876 ml Output 2535 ml Net -659 ml Past Medical History: Past Medical History: Diagnosis Date Abscess, perineum Chronic back pain Hip sprain Hyperlipidemia Hypertension Neuropathy Osteoarthritis Sciatica Type 2 diabetes mellitus without complication ([facility]) ([facility]) LABS: CBC: Recent Labs 04/15/24 0407 0751404/17/24341 WBC 11.2* 11.9* 7.9 RBC 3.85* 3.91* [...] of Hospitalist Medicine Inpatient Medical Services/[facility] P[facility]ER: Epic chat Images from the original note were not included. [facility] - Infectious Diseases Attending Progress Note Subjective: [...] was discussed. Objective: Vitals: BP MAP 132/83 (04/16/24 05) 97 (04/16/24 05) Arterial BP MAP Temp 36.5 C (97.7 F) (04/16/24522) Pulse 69 (04/16/24 05) Resp 17 (04/16/24 05) SpO2 99 % (04/16/24 05) Weight 93.1 [...] Labs: Recent Labs 04/14/24 1603 04/14/24231704/15/24 0407 04/16/24 0515 NA 137 -- 135 [...] #1 - Assess for effectiveness of treatment [[id number]] Blood, Venous Preliminary result Component Value Blood Culture Blood culture incubation started P 04/16/2024 0654 04/16/2024 1101 Blood culture Site #2 - Assess for effectiveness of treatment [[id number]] Blood, Venous Preliminary result Component Value Blood Culture Blood culture incubation started P 04/15/2024 1713 04/15/2024 2208 MRSA by PCR [[id number]] (Abnormal) ESwab from Nasal Final result Component Value Staphylococcus aureus Detected Abnormal mecA gene Not Detected 04/15/2024 0103 04/16/2024 1135 Urine culture [[id number]] (Abnormal) Urine, Clean Catch Preliminary result Component Value Urine Culture Normal urogenital gosia present P 50,000-90,000 CFU/mL Providencia stuartii Abnormal P 04/14/2024 1631 04/16/2024 1204 Blood culture Site #1 - Suspected Infection [[id number]] (Abnormal) Blood, Venous Preliminary result Component Value Blood Culture Proteus mirabilis Panic P Providencia stuartii Panic P Morganella morganii Panic P 04/14/2024 1631 04/16/2024 1204 Blood culture Site #2 - Suspected Infection [[id number]] (Abnormal) Blood, Venous Preliminary result Component Value Blood Culture Morganella morganii Panic P For identification and/or sensitivity, refer to culture collected on: 04/14/24 at 16:31, [id number]. This is an edited result. Previous organism was Gram-negative bacilli on 04/15/2024 at 0835 EDT. 04/14/2024 1631 04/15/2024 0828 Blood Culture Identification - Anaerobic [[id number]] (Abnormal) Blood, Venous Final result Component Value Proteus species Detected Abnormal Lines: PIV Radiography/Echo/Other: Procedure Component Value Units Date/Time FL pyelogram retrograde [[id number]] Resulted: 04/14/242216 Order Status: Completed Updated: 04/14/242216 Narrative: There is no interpretation needed for this exam. CT abdomen pelvis wo IV contrast [[id number]] Collected: 04/14/241928 Order Status: Completed Updated: 04/14/241938 Narrative: Patient Name: ANMOL REYNOLDS : 1960 Exam Date/Time: 04/14/2024 19:28 Procedure: CT ABDOMEN PELVIS WO IV CONTRAST Ordering Provider: [facility] Reason For Exam: Sepsis CT ABDOMEN AND [...] 7:37 PM EDT XR chest 1 view [[id number]] Collected: 04/14/241650 Order Status: Completed Updated: 04/14/241652 [...] original note were not included. OCCUPATIONAL THERAPY [facility] Name/MRN: Anmol Reynolds ([id number]) Date: 04/16/2024 OT evaluation and treat orders received. PT spoke to patient at bedside. Pt is from [facility] and is paraplegic with everett lift to electric w/c. Pt also requires assist with ADLs. Pt states receives very minimal therapy services at [facility]. Pt has no current acute OT needs and is at baseline LOF. Rec return to [facility]. Chelita Blanc OT ICU Progress Note Name: Anmol Reynolds : 1960(63 y.o.) Date: 04/16/24 Team: MICU Chief Complaint: obstructed santana catheter, septic shock Subjective: Hospital Summary: 63 yoM with history of paraplegia after lumbar surgeries, [facility] resident, history of recurrent UTIs in setting [...] Normal [] Scar/Lesion/Mass Inspection of teeth/lips/gums Dentition: [x][place] Teeth []Dentures Lips/Gums: [x]Intact []Lesion Present Mucosa: [][place] []Moist [x]Dry Neck: External Appearance Overall Appearance: [...] 0407 04/15/24 0608 04/15/24 1229 04/15/24 1732 04/15/24201904/16/24 0515 04/16/24 0803 GLUCOSE 259* -- -- -- 286* -- -- -- -- 315* -- POCGLU -- 226* 210* 223* -- 285* 287* 342* 390* -- 323* BHYDRXBUT 1.08 -- -- -- -- -- -- -- -- -- -- Procal: Recent Labs 04/14/242317 PROCAL 27.06* CBC: Recent Labs 04/14/24231704/15/24 0407 04/16/24 0515 WBC 5.4 11.2* 11.9* HGB 12.4* 11.9* 12.0* HCT 39.1* 36.2* 37.2* PLT 117* 107* 76* MCV 97.0 94.0 95.1 RDW 14.8 14.9 15.2* ABGs: Recent Labs 04/14/24 1730 [id number] Room Air Lactic Acid: Recent Labs 04/14/24231704/15/2440604/15/24 [...] creatinine, and vancomycin levels interfaced automatically to [employer] and data has been analyzed and interpreted. [...] assess Fluid Accumulation: Mild Extremities (+2 ble) Chief Lifestyle Officer Strength: Not Performed Nutrition Assessment: per MD-pISTORY OF PRESENT ILLNESS: Anmol is a 63 y.o. male with , recurrent UTI at [facility] who presented to the ED today due [...] WBC 1.5, er case manger-npatient status from [facility] with sepsis. Urology consulted due to [...] of paraplegia and states has been at [facility] for a year and wishes to [...] On: Kcal/kg Weight Used for Energy Requirements: [place] Weight for Energy Calculation (kg): 82.41 kg Total Energy Requirements (kcals/day): 28-30 or 7- 24 72 Weight Used for Protein Requirements: [place] Weight in Kg Used for Protein Requirements: [...] (183 lb) % Weight Change (Calculated): 12.2 [place] Body Weight (lbs) (Calculated): 196 lbs [place] Body Weight (Kg) (Calculated): 89 kg % [place] Body Weight (Calculated): 104.7 % BMI (kg/m2) (Calculated): 25.7 Weight Adjustment For: Paraplegia % Weight Adjustment: 7.5 - Paraplegia Total Adjusted Percentage (Calculated): 7.5 Adjusted [place] Body Weight (lbs) (Calculated): 181.3 lbs Adjusted [place] Body Weight (kg) (Calculated): 82.41 kg Adjusted [...] Oral Nutrition Supplement Isabel Lieberman RD Contact: *[phone] or secure chat ICU Progress Note Name: [...] %, 2-50 mcg/min, Last Rate: 5 mcg/min (04/15/24702) Objective: Last Vitals: BP MAP 108/67 (04/15/24 08) 80 (04/15/24815) Arterial BP MAP Temp 37.1 C (98.8 F) (04/15/24 0411) Pulse 101 (04/15/24831) Resp 16 (04/15/24831) SpO2 [...] Normal [] Scar/Lesion/Mass Inspection of teeth/lips/gums Dentition: [x][place] Teeth []Dentures Lips/Gums: [x]Intact []Lesion Present Mucosa: [][place] []Moist [x]Dry Neck: External Appearance Overall Appearance: [...] 1.7 PHOS -- 3.3 LFTs: Recent Labs 04/14/24160204/14/24195504/15/24 040 AST 25 -- 36 ALT 22 -- 34 PROT 7.8 -- 5.5* ALBUMIN 4.0 -- 2.6* BILITOT 1.4* -- 1.1 ALKPHOS 167* -- 168* LIPASE 12* <10* -- Glucose: Recent Labs 04/14/24160204/14/24221104/14/24221904/14/24 23304/15/24 0407 04/15/24 0608 GLUCOSE 259* -- -- -- 286* -- POCGLU -- 226* 210* 223* -- 285* BHYDRXBUT 1.08 -- -- -- -- -- Procal: Recent Labs 04/14/242317 PROCAL 27.06* CBC: Recent Labs 04/14/24 16004/14/24172904/14/24231704/15/24 0407 WBC 1.5* -- 5.4 11.2* HGB 15.2 13.7 12.4* 11.9* HCT 47.3 -- 39.1* 36.2* PLT 183 -- 117* 107* MCV 95.6 -- 97.0 94.0 RDW 14.8 -- 14.8 14.9 ABGs: Recent Labs 07/11/24 1730 [id number] Room Air Lactic Acid: Recent Labs 04/14/24 [...] included. PHYSICAL THERAPY [facility] Name/MRN: Anmol Franco Given ([id number]) Date: 04/15/2024 PT evaluation and treat orders received. Spoke to patient at bedside. Pt is from [facility] and is paraplegic with everett lift to electric w/c. Pt states receives very minimal therapy services at [facility]. Pt has no current acute PT needs and is at baseline LOF. Rec return to [facility]. Nakita Kwan PT Images from the original note were not included. [facility] Urology Inpatient Progress Note 04/15/2024 at 9:33 [...] in patient's urologic status. Joe Hammer, DNP, QUALITY AUDIT REPRESENTATIVE, [facility] Subjective: Interval History: No overnight issues. [...] Sciatica Type 2 diabetes mellitus without complication ([facility]) ([facility]) Objective: Vitals: BP 108/67 Pulse 92 Temp [...] mg, 400 mg, IntraVENous, q24h, Brad Mujica, QUALITY AUDIT REPRESENTATIVE - DEMURRAGE AGENT, Stopped at 04/15/24 0254 glucagon (human recombinant) [...] in 0.9% sodium chloride 250 mL infusion (Csx-Ebpglw-Dbeqc) (premix), 2-50 mcg/min, IntraVENous, Continuous, Pedro Luis Matos MD, Last Rate: 18.75 mL/hr at 04/15/24702, 5 mcg/min at 04/15/24 07 ondansetron ODT [...] portions of this chart were dictated using [employer] electronic voice recognition software. It is possible that typos and/or omissions and/or substitutions of words and/or phrases may exist, which may alter the intended meaning of the dictating provider. On this date 04/15/2024 I have spent 35 minutes ebeo-bv-rsyf time, reviewing previous notes, test results and [...] creatinine, and vancomycin levels interfaced automatically to [employer] and data has been analyzed and interpreted. [...] Ongoing ICU care/mgmt documented in this encounter [facility] 04-17-2024 Consult note Associated Order (s): PHARMACY TO DOSE VANCO Vancomycin therapy has been discontinued by Dr. Moyer on 04-17. Thank you for the consult. Pharmacy signing off for vancomycin dosing. Carmel Collins RPh, Date: 04/17/24 Time: 1:40 PM Associated Order(s): IP CONSULT TO INFECTIOUS DISEASES Images from the original note were not included. [facility] - Infectious Diseases Attending Consult Note Reason [...] Sciatica Type 2 diabetes mellitus without complication ([facility]) ([facility]) Past Surgical History: Past Surgical History: Procedure Laterality Date ANKLE SURGERY Right He has a titanium plate to the right ankle KNEE SURGERY ACL LAMINECTOMY Left 10/24/2020 LEFT BILATERAL L2-3-4-5 DECOMPRESSION performed by Opal Vigil MD at [facility] OR ORTHOPEDIC SURGERY US [...] mg IntraVENous q24h Brad Mujica APRN - DEMURRAGE AGENT Stopped at 04/15/24 0254 glucagon (human recombinant) injection 1 mg 1 mg IntraMUSCular PRN Orquidea Marti MD glucose oral gel 15 g 15 g Oral PRN Orquidea Marti MD HYDROmorphone (Dilaudid) injection 1 mg 1 mg IntraVENous q4h PRN Dashawn Grimm MD [Held by provider] insulin glargine (Lantus) injection 45 Units 45 Units SubCUTAneous Nightly Orquidea Adia Morehart, MD Insulin Lispro (Humalog) injection 0-6 Units 0-6 Units SubCUTAneous q6h Brad Mujica APRN - DEMURRAGE AGENT 3 Units at 04/15/24 1334 Insulin Lispro [...] in 0.9% sodium chloride 250 mL infusion (Awk-Nfqnvf-Dhvvl) (premix) 2-50 mcg/min IntraVENous Continuous Pedro Luis [...] Resource Strain: Low Risk (04/24/2023) Received from [facility], [facility] Overall Financial Resource Strain (CARDIA) Difficulty [...] 70 13 98 % -- -- 04/15/24 120 -- -- -- 75 16 99 % -- -- 04/15/24 120 -- -- -- 73 13 97 % -- -- 04/15/24 120 132/83 -- -- 70 12 98 % [...] 79 16 100 % -- -- 04/15/24 114 -- -- -- 76 16 98 % -- -- 04/15/24 1140 -- -- -- 81 20 97 % -- -- 04/15/241138 -- -- -- 70 (!) 11 97 % -- -- 04/15/241137 -- -- -- 71 (!) 10 98 % -- -- 04/15/247 -- -- -- 73 12 97 % [...] 70 (!) 11 96 % -- -- 04/15/249 -- -- -- 71 (!) 11 96 [...] -- 77 12 96 % -- -- 04/15/243 -- -- -- 76 12 96 % -- -- 04/15/242 -- -- -- 73 13 96 % [...] -- 85 16 95 % -- -- 04/15/2407 -- -- -- 85 16 94 % -- -- 04/15/2406 -- -- -- 84 18 96 % -- -- 04/15/2405 -- -- -- 87 17 95 % -- -- 04/15/2404 -- -- -- 85 14 95 % -- -- 04/15/24902 -- -- -- 84 15 95 % -- -- 04/15/2402 -- -- -- 85 17 96 % [...] -- 95 14 97 % -- -- 04/15/24834 -- -- -- 92 15 96 % [...] -- 84 12 95 % -- -- 04/15/24 0821 -- -- -- 86 13 94 % -- -- 04/15/24 0820 -- -- -- 86 12 94 % -- -- 04/15/24 0819 -- -- -- 87 12 95 % -- -- 04/15/24 0818 -- -- -- 86 12 95 % [...] 88 13 95 % -- -- 04/15/24 0800 -- -- -- 87 12 95 % -- -- 04/15/24 0759 -- -- -- 88 12 95 % -- -- 04/15/248 -- -- -- 86 12 95 % -- -- 04/15/247 -- -- -- 88 13 95 % -- -- 04/15/246 -- -- -- 88 13 95 % -- -- 04/15/245 -- -- -- 87 14 95 % -- -- 04/15/24753 -- -- -- 87 12 95 % -- -- 04/15/24752 -- -- -- 88 13 95 % [...] 87 13 95 % -- -- 04/15/2432 108/ -- -- 87 13 95 % -- [...] 90 13 95 % -- -- 04/15/2417 105 -- -- 88 12 95 % -- -- 04/15/2416 -- -- -- 87 13 95 % -- -- 04/15/2414 -- -- -- 87 13 95 % -- -- 04/15/2413 -- -- -- 86 13 95 % -- -- 04/15/2412 -- -- -- 83 13 94 % -- -- 04/15/2411 -- -- 86 13 95 % -- [...] 14 92 % -- -- 04/15/24630 (!) 63/51 -- -- 92 13 91 % -- -- 04/15/2408 (!) 64/49 -- -- 95 18 93 % -- -- 04/15/24 0531 -- -- -- 99 19 93 % -- -- 04/15/24 0504 (!) 81/51 -- -- 104 19 93 % -- -- 04/15/24 0502 (!) 68/ -- -- 103 17 93 % -- -- 04/15/24 0411 91/55 37.1 C (98.8 F) Oral 111 16 93 % -- -- 04/15/24 0407 (!) 73/53 -- -- 108 23 94 % -- -- 04/15/24 0404 (!) 75/52 -- -- 108 22 94 % -- -- 04/15/24 0403 (!) 76/ -- -- 107 19 93 % -- -- 04/15/24 0301 (!) -- -- 105 22 96 % -- -- 04/15/24 0201 (!) -- -- 110 22 97 % -- -- 04/15/24 0101 113/66 -- -- 118 20 96 % -- -- 04/15/24 0006 97/56 -- -- 117 23 95 % -- -- 04/15/24 0000 (!) 88/57 -- -- 118 25 94 % -- [...] 04/14/24 1603 04/14/24 1730 04/14/248 04/15/24 0407 WBC 1.5* -- 5.4 11.2* HGB 15.2 13.7 12.4* 11.9* HCT 47.3 -- 39.1* 36.2* PLT 183 -- 117* 107* LYMPHOPCT 38 -- 1* 1* MONOPCT 1* -- 0* 1* BASOPCT 1 -- 1 -- Micro: No results for input(s): "COVID19" in the last 72 hours. 04/15/2024 0103 04/15/2024 0107 Urine culture [[id number]] Urine, Clean Catch In process Component Value No component results 04/14/2024 16304/15/2024 0835 Blood culture Site #1 - Suspected Infection [[id number]] (Abnormal) Blood, Venous Preliminary result Component Value Blood Culture Gram-negative bacilli Panic P 04/14/2024 1631 04/15/2024 0835 Blood culture Site #2 - Suspected Infection [[id number]] (Abnormal) Blood, Venous Preliminary result Component Value Blood Culture Gram-negative bacilli Panic P 04/14/2024 1631 04/15/2024 0828 Blood Culture Identification - Anaerobic [[id number]] (Abnormal) Blood, Venous Final result Component Value Proteus species Detected Abnormal Lines: PIV Radiography/Echo/Other: CT abdomen pelvis wo IV contrast [[id number]] Collected: 04/14/241928 Order Status: Completed Updated: 04/14/241938 Narrative: Patient Name: ANMOL REYNOLDS : [address] [facility]#: [id number] Exam Date/Time: 04/14/2024 19:28 Procedure: CT ABDOMEN PELVIS WO IV CONTRAST Ordering Provider: [facility] Reason For Exam: Sepsis CT ABDOMEN AND [...] 7:37 PM EDT XR chest 1 view [[id number]] Collected: 04/14/241650 Order Status: Completed Updated: 04/14/241652 Narrative: Patient Name: ANMOL REYNOLDS : 1960 [id number] Exam Date/Time: 04/14/2024 16:39 Procedure: XR CHEST 1 VIEW [facility] Reason For Exam: sepsis INDICATION: Sepsis. VIEWS: [...] open encounter. Associated Order(s): IP CONSULT TO VAULT MECHANIC This patient is not a new diabetic [...] needed. Thank you. Karlos PAVON,BSN,[facility] Images from the original note were not [...] creatinine, and vancomycin levels interfaced automatically to [employer] and data has been analyzed and interpreted. [...] er due to clogged santana. Data Afebrile [id number]/55-76 Pulse-120 Creat-1.24 Co2-19 Lactic 5.1>>3.9 Wbc 1.5 [...] Type 2 diabetes mellitus without complication (CMS/HCC) ([facility]) PAST SURGICAL HISTORY: Past Surgical History: Procedure Laterality Date ANKLE SURGERY Right He has a titanium plate to the right ankle KNEE SURGERY ACL LAMINECTOMY Left 10/24/2020 LEFT BILATERAL L2-3-4-5 DECOMPRESSION performed by Opal Vigil MD at [facility] OR ORTHOPEDIC SURGERY ALLERGIES: [...] Resource Strain: Low Risk (04/24/2023) Received from [facility] Overall Financial Resource Strain (CARDIA) Difficulty of Paying Living Expenses: Not hard at all Food Insecurity: No Food Insecurity (04/24/2023) Received from [facility] Hunger Vital Sign Worried About Running Out of Food in the Last Year: Never true Ran Out of Food in the Last Year: Never true Transportation Needs: No Transportation Needs (04/24/2023) Received from [facility] PRAPARE - Transportation Lack of Transportation (Medical): No Lack of Transportation (Non-Medical): No Physical Activity: Not on file Stress: Not on file Social Connections: Not on file Intimate Partner Violence: Not on file Housing Stability: High Risk (04/24/2023) Received from [facility] Housing Stability Vital Sign Unable to [...] paraplegic patient, history of recurrent UTI at [facility] who presented to the ED today due [...] DECOMPRESSION performed by Opal Vigil MD at [facility] OR ORTHOPEDIC SURGERY No [...] Resource Strain: Low Risk (04/24/2023) Received from [facility] Overall Financial Resource Strain (CARDIA) Difficulty of Paying Living Expenses: Not hard at all Food Insecurity: No Food Insecurity (04/24/2023) Received from [facility] Hunger Vital Sign Worried About Running Out of Food in the Last Year: Never true Ran Out of Food in the Last Year: Never true Transportation Needs: No Transportation Needs (04/24/2023) Received from [facility] PRAPARE - Transportation Lack of Transportation (Medical): No Lack of Transportation (Non-Medical): No Physical Activity: Not on file Stress: Not on file Social Connections: Not on file Intimate Partner Violence: Not on file Housing Stability: High Risk (04/24/2023) Received from [facility] Housing Stability Vital Sign Unable to [...] Normal [] Scar/Lesion/Mass Inspection of teeth/lips/gums Dentition: [][place] Teeth []Dentures Lips/Gums: []Intact []Lesion Present Mucosa: [][place] [x]Moist []Dry Neck: External Appearance Overall Appearance: [...] 14.8 -- ABGs: Recent Labs 04/14/24 1730 [id number] Room Air Lactic Acid: Recent Labs 04/14/24 [...] Consider meropenem. \\ documented in this encounter [facility] 04-15-2024 Telephone encounter Note SURGERY SCHEDULING Surgeon: Dr. Dashawn Grimm PROCEDURE: Cystoscopy, possible cystolitholapaxy, bilateral ureteroscopy, bilateral laser lithotripsy, bilateral ureteral stent change - Special request: Astrid ruano DIAGNOSIS: Bladder calculus, bilateral ureteral stones FACILITY: [facility] DETAILS: OUTPT ANESTHESIA: GENERAL TIME REQUESTED: 2hr DATE REQUESTED: Must be minimum of 2 weeks from today due to infection SURGERY ORDERS: Already placed by Joe Hammer NP on 04/15/2024 POST OP FOLLOW UP: cysto stent removal 2 wks [facility] 04-15-2024 History and physical note Images from the original note were not included. Attending History and Physical Admit Date: 04/14/2024 PCP: AMBROSIO MONROY DO CHIEF COMPLAINT: UTI Reason for Admission: Seps History Obtained From: patient HISTORY OF PRESENT ILLNESS: Anmol is a 63 y.o. male with , recurrent UTI at [facility] who presented to the ED today due [...] Vigil MD at [facility] OR ORTHOPEDIC SURGERY US PLACE URETAL STENT [...] Resource Strain: Low Risk (04/24/2023) Received from [facility], [facility] Overall Financial Resource Strain (CARDIA) Difficulty of Paying Living Expenses: Not hard at all Food Insecurity: No Food Insecurity (04/24/2023) Received from [facility] Hunger Vital Sign Worried About Running Out of Food in the Last Year: Never true Ran Out of Food in the Last Year: Never true Transportation Needs: No Transportation Needs (04/24/2023) Received from [facility], [facility] PRAPARE - Transportation Lack of Transportation (Medical): No Lack of Transportation (Non-Medical): No Physical Activity: Not on file Stress: Not on file Social Connections: Not on file Intimate Partner Violence: Not on file Housing Stability: High Risk (04/24/2023) Received from [facility], [facility] Housing Stability Vital Sign Unable to [...] - DO NOT do CPR, intubation] [_] [DNR-PHOTOGRAPHIC ENLARGER OPERATOR - Comfort care only] [_] DNR form [...] Orquidea Marti MD Division of Hospitalist Medicine [facility] documented in this encounter [facility] 04-14-2024 Emergency department Note Both sets of blood cultures obtained from each PIV when started. Samples labeled and at bedside in case BC ordered Leyla Mendoza RN 04/14/24 1643 Patient arrives via EMS from [facility] with c/o Santana catheter not draining, and [...] DECOMPRESSION performed by Opal Vigil MD at [facility] OR ORTHOPEDIC SURGERY CURRENT [...] Resource Strain: Low Risk (04/24/2023) Received from [facility] Overall Financial Resource Strain (CARDIA) Difficulty of Paying Living Expenses: Not hard at all Food Insecurity: No Food Insecurity (04/24/2023) Received from [facility] Hunger Vital Sign Worried About Running Out of Food in the Last Year: Never true Ran Out of Food in the Last Year: Never true Transportation Needs: No Transportation Needs (04/24/2023) Received from [facility] PRAPARE - Transportation Lack of Transportation (Medical): No Lack of Transportation (Non-Medical): No Housing Stability: High Risk (04/24/2023) Received from [facility] Housing Stability Vital Sign Unable to [...] BP Location FiO2 (%) Left arm -- Hmeatec-zyms-gwjfcqrrl, slightly toxic-appearing HEENT- atraumatic, normocephalic Neck- no [...] right. Report Dictated on Electronically Signed By: Jeo Monroy MD Electronically Signed Date/Time: 04/14/2024 7:37 [...] Culture. Procedure Abnormality Status --------- ------ Complete Urinalysis[[id number]] Please view results for these tests on [...] Mini-Bag Plus (0 mg IntraVENous Stopped 04/14/24 173) lactated ringers bolus 1,700 mL (1,700 mL [...] mEq (50 mEq IntraVENous Given 04/14/24 1753) SEP- CORE MEASURE DATA SIRS Criteria Sepsis Criteria [...] admitted Ene Dickens MD EKG interpreted by [facility]: 04-14-2024. Time 1611. Rate 119 sinus tachycardia. Normal axis. DC interval 154, QRS 90, QTc 473. No [...] Dickens MD 04/14/242003 documented in this encounter [facility] 04-13-2024 Telephone encounter Note Called pt on his room number but unable to reach him or leave a message. I called nursing staff at the [place] where he lives and was able to leave a message with nursing regarding his MRI findings and that I would like to speak with him and recommendations to schedule visit with SCI rehab and spine surgery. Vaishali Pierre DO [facility] 04-06-2024 Telephone encounter Note Telephoned [facility] pt at dinner and medical office receptionist assistant states she cannot pull pt away from dinner. [facility] 04-06-2024 Telephone encounter Note Called pt regarding [...] to the above findings.[facility] Vaishali Pierre DO [facility] 02-10-2024 Instructions Vaishali Pierre DO - 02/10/2024 1:53 PM EDT - xrays of the low back - can schedule the MRI of the lumbar spine - I recommend seeing one of my colleagues in the spinal cord injury clinic documented in this encounter [facility] 02-10-2024 History of Present illness Narrative Physical [...] currently in a nursing facility, [facility]. Bladder management is via Santana catheter. 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 Vaishali Pierre DO Physical Medicine and Rehabilitation Vitals not obtained per provider's instructions. documented in this encounter [facility] 01-29-2024 History of Present illness Narrative Images from the original note were not included. [facility] [address] [place] [address] Dept: [phone] Dept Chief Complaint Patient presents with Pain [...] without abscess 10/15/2020 Diabetes mellitus without complication ([facility]) ([facility]) 10/15/2020 Abnormal finding on EKG 10/15/2020 Other intervertebral disc displacement, lumbar region 10/15/2020 Lumbar radiculopathy 10/04/2020 Herniated nucleus pulposus, L5-S1, left 07/07/2017 No Known Allergies No family history on file. Past Medical History: Diagnosis Date Abscess, perineum Chronic back pain Hip sprain Hyperlipidemia Hypertension Neuropathy Osteoarthritis Sciatica Type 2 diabetes mellitus without complication ([facility]) ([facility]) Social History Socioeconomic History Marital status: Spouse [...] DECOMPRESSION performed by Opal Vigil MD at [facility] [place] OR ORTHOPEDIC SURGERY Current [...] follow-ups on file. documented in this encounter [facility] 12-29-2023 History of Present illness Narrative Images from the original note were not included. [facility]IN [facility]EMENT [address] [place] [address] Dept: [phone] Dept Chief Complaint Patient presents with New [...] Pressure injury of coccygeal region, stage 3 ([facility]) 04/20/2024 Septic shock ([facility]) 04/14/2024 Lumbar stenosis with neurogenic claudication 10/24/2020 Spinal stenosis of lumbar region with neurogenic claudication 10/24/2020 Nicotine use disorder 10/15/2020 Unspecified osteoarthritis, unspecified site 10/15/2020 Pilonidal cyst without abscess 10/15/2020 Diabetes mellitus without complication ([facility]) ([facility]) 10/15/2020 Abnormal finding on EKG 10/15/2020 Other [...] gait and mobility Other reduced mobility Paraplegia ([facility]) Sciatica Spinal stenosis of lumbar region with neurogenic claudication Type 2 diabetes mellitus without complication ([facility]) ([facility]) Urinary calculus, unspecified UTI (urinary tract infection) [...] Resource Strain: Low Risk (04/24/2023) Received from [facility], [facility] Overall Financial Resource Strain (CARDIA) Difficulty [...] DECOMPRESSION performed by Opal Vigil MD at [facility] OR ORTHOPEDIC SURGERY Right [...] follow-ups on file. documented in this encounter Link To [employer] 09-08-2023 Telephone encounter Note Called and left message for doug to call to schedule patient a new patient appointment [employer] 09-08-2023 Miscellaneous Notes Called and left message for [facility] to call to schedule patient a new patient appointment Name of caller: Doug Contact phone number: [phone] Relationship to Patient: [facility] Provider: Practice: Pain Management Chief Complaint/Reason for Call: Doug states she mailed the referral over to the office and would like to know if the office received it. Please advise Best time of day caller can be reached: Any Patient advised that office/PCP has 24-48 business hours to return their call: Yes documented in this encounter [facility] 09-04-2023 Telephone encounter Note Name of caller: [facility] Contact phone number: [phone] Relationship to Patient: [facility] Provider: Practice: Pain Management Chief Complaint/Reason for Call: Doug states she mailed the referral over to the office and would like to know if the office received it. Please advise Best time of day caller can be reached: Any Patient advised that office/PCP has 24-48 business hours to return their call: Yes [facility] 08-19-2023 Telephone encounter Note Returned call gave fax number gave address to mail referral [facility] 08-19-2023 Miscellaneous Notes Returned call gave fax number gave address to mail referral Name of caller: [facility] Contact phone number: [phone] Relationship to Patient: [facility] Provider: Dr. Gillette Practice: Pain Management Chief Complaint/Reason for Call: Pt claims that fax of referral will not go threw and was hoping someone could give her a call back to go over the referral please advise Best time of day caller can be reached: Any Patient advised that office/PCP has 24-48 business hours to return their call: No Name of caller: [facility] Contact phone number: [phone] Relationship to Patient: [facility] Provider: Dr. Gillette Practice: Pain Management Chief Complaint/Reason for Call: Doug states she would like a call back to confirm receipt of the patient's referral for NSH TEACHER appt scheduling (fax number confirmed). Please contact Doug and alfie. Best time of day caller can be reached: Any Patient advised that office/PCP has 24-48 business hours to return their call: No documented in this encounter [facility] 08-19-2023 Telephone encounter Note Name of caller: [facility] Contact phone number: [phone] Relationship to Patient: [facility] Provider: Dr. Gillette Practice: Pain Management Chief Complaint/Reason for Call: Pt claims that fax of referral will not go threw and was hoping someone could give her a call back to go over the referral please advise Best time of day caller can be reached: Any Patient advised that office/PCP has 24-48 business hours to return their call: No [facility] 08-19-2023 Telephone encounter Note Name of caller: [facility] Contact phone number: [phone] Relationship to Patient: [facility] Provider: Dr. Gillette Practice: Pain Management Chief Complaint/Reason for Call: Doug states she would like a call back to confirm receipt of the patient's referral for NSH TEACHER appt scheduling (fax number confirmed). Please contact Doug and alfie. Best time of day caller can be reached: Any Patient advised that office/PCP has 24-48 business hours to return their call: No [facility] 08-13-2023 Telephone encounter Note Called and gave fax number to send referral [facility] 08-13-2023 Miscellaneous Notes Called and gave fax number to send referral Pt is asking for a call back to be scheduled Left message for patient to call the office Returned call will call thursday Name of Caller: Doug - [facility] Contact Reason for Appointment: Doug states that they faxed over a referral for patient a few days ago and is calling to schedule a NSH TEACHER appointment. Please advise. Office Name: [facility] Pain Medication Refills need, if any: none Medication Name: n/a ` documented in this encounter [facility] 08-13-2023 Telephone encounter Note Pt is asking for a call back to be scheduled [facility] 08-12-2023 Telephone encounter Note Left message for patient to call the office [facility] 08-07-2023 Telephone encounter Note Returned call will call thursday [facility] 08-06-2023 Telephone encounter Note Name of Caller: Doug - [facility] Contact Reason for Appointment: Doug states that they faxed over a referral for patient a few days ago and is calling to schedule a NSH TEACHER appointment. Please advise. Office Name: [facility] Pain Medication Refills need, if any: none Medication Name: n/a ` [facility] 05-23-2023 Emergency department Note Physicians A.S. arrived and report given. Patient loaded and sent back to SNF. Vladimir Dimas RN 05/23/23 1207 [facility] 05-23-2023 Emergency department Note Physicians A.S. [...] Sciatica Type 2 diabetes mellitus without complication ([facility]) SURGICAL HISTORY Past Surgical History: Procedure Laterality Date ANKLE SURGERY Right He has a titanium plate to the right ankle KNEE SURGERY ACL LAMINECTOMY Left 10/24/2020 LEFT BILATERAL L2-3-4-5 DECOMPRESSION performed by Opal Vigil MD at [facility] OR ORTHOPEDIC SURGERY CURRENT [...] Culture. Procedure Abnormality Status --------- ------ Complete Urinalysis[[id number]] Abnormal Final result Please view results for [...] . I Colt Klein DO am the foster winder of record. PROCEDURES: Unless otherwise noted below, none Procedures FINAL IMPRESSION 1. Urinary tract infection associated with indwelling urethral catheter, initial encounter ([facility]) DISPOSITION Discharge 05/23/2023 09:53:37 AM PATIENT REFERRED TO: Ambrosio Monroy DO [address] [facility] [address] [facility] [address] [facility] [address] DISCHARGE MEDICATIONS: New Prescriptions CEPHALEXIN [...] santana without success. documented in this encounter [facility] 05-23-2023 Emergency department Note Inserted a santana and drained initially 100ml of blood and puss. Bladder scan showed 500+ ml of fluid in bladder. Obtained OK from ED Attending to manually flush and drain the catheter. After using 30 ml of NS to flush patient the urine began to flow into the santana bag. Urine sample sent. Vladimir Dimas RN 05/23/23 1013 [facility] 05-23-2023 Emergency department Note Bed: 18 Expected date: Expected time: Means of arrival: Comments: Adelia Banuelos 05/23/23 0746 [facility] 05-23-2023 Emergency department Triage note Patient with chronic santana due to history of paraplegia that became clogged with blood clots. Patient had lithotripsy due to stone recently. SNF attempted several times to reinsert santana without success. [facility] 05-23-2023 Physician Emergency department Note EMERGENCY [...] Sciatica Type 2 diabetes mellitus without complication ([facility]) SURGICAL HISTORY Past Surgical History: Procedure Laterality Date ANKLE SURGERY Right He has a titanium plate to the right ankle KNEE SURGERY ACL LAMINECTOMY Left 10/24/2020 LEFT BILATERAL L2-3-4-5 DECOMPRESSION performed by Opal Vigil MD at [facility] OR ORTHOPEDIC SURGERY CURRENT [...] Culture. Procedure Abnormality Status --------- ------ Complete Urinalysis[[id number]] Abnormal Final result Please view results for [...] . I Colt Klein DO am the foster winder of record. PROCEDURES: Unless otherwise noted below, none Procedures FINAL IMPRESSION 1. Urinary tract infection associated with indwelling urethral catheter, initial encounter ([facility]) DISPOSITION Discharge 05/23/2023 09:53:37 AM PATIENT REFERRED TO: Ambrosio Monroy DO [address] [facility] [address] [facility] [address] [facility] [address] [facility] [address] DISCHARGE MEDICATIONS: New Prescriptions [...] Medicine Provider Colt Klein DO 05/23/23 1010 [facility] 04-21-2022 Note HNO ID: [id number] Author: Cindi Cuellar PA-C Service: ? Author Type: Physician Bonding Supervisor Type: Progress Notes Filed: 04/21/2022 12:25 PM Note Text: Actionable Finding: Reviewed patient's chart. The actionable finding of MRI lumbar , dated 02/14/22 was followed up by unknown and unsure if the patient was contacted regarding the MRI results. Unable to reach patient. Staff msg sent to Dr Kelly - patient spine surgeon. Cindi Cuellar PA-C [facility] 04-21-2022 Note Patient Outreach (SP NSMN) GIVEN,ANMOL ([id number]) 1960 M Date Time Provider Department 04/21/22 [...] Of Date 04/21/2022 Noted Resolved NO SHOW [[id number]] 08/31/2013 05/29/2020 Perineal abscess [L02.215] 06/13/2019 05/29/2020 [...] Encounter Status:Closed by CINDI CUELLAR on 04/21/22 [facility] 04-21-2022 Note Patient Outreach (SP NSMN) ANMOL REYNOLDS ([id number]) 1960 M Date Time Provider Department 04/21/22 [...] Of Date 04/21/2022 Noted Resolved NO SHOW [[id number]] 08/31/2013 05/29/2020 Perineal abscess [L02.215] 06/13/2019 05/29/2020 [...] Encounter Status:Closed by CINDI CUELLAR on 04/21/22 [facility] 04-21-2022 History of Present illness Narrative Actionable Finding: Reviewed patient's chart. The actionable finding of MRI lumbar , dated 02/14/22 was followed up by unknown and unsure if the patient was contacted regarding the MRI results. Unable to reach patient. Staff msg sent to Dr Kelly - patient spine surgeon. Cindi Cuellar PA-C documented in this encounter [facility] 02-14-2022 History of Present illness Narrative [...] PERIPHERAL IV DATA: Ambulatory: Pic[facility] line from [facility] RADIOLOGY DEPARTMENT: MR; Exam(s) Completed: Head: Routine Brain Spine: WHOLE spine SIGNATURE: RT Kasandra(Ector) PATIENT NAME: Anmol Reynolds DATE: February 14, 2022 TIME: 12:27 PM documented in this encounter [facility] 08-05-2021 Note HNO ID: [id number] Author: Penny Cameron MD Service: ? Author [...] CT chest abd/pelvis (more content not included)... [facility] 01-16-2021 History of Past i llness Narrative Problem Noted Date Resolved Date Perirectal abscess 01/16/2021 08/21/2021 Perineal abscess 06/13/2019 05/29/2020 NO SHOW 08/31/2013 05/29/2020 documented as of this encounter (statuses as of 02/15/2022) [facility] History of Past illness Narrative* Problem Noted Date Resolved Date Perirectal abscess 01/16/2021 08/21/2021 Perineal abscess 06/13/2019 05/29/2020 NO SHOW 08/31/2013 05/29/2020 documented as of this encounter (statuses as of 04/21/2022) [facility] noteNo assessment information availableWAdena [facility] Work Phone: Evaluation note* Diagnosis Urinary tract infection associated with indwelling urethral catheter, initial encounter (HCC)- Primary [facility] Diagnosis Injury of lumbar spinal cord, sequela (HCC)- Primary Neuropathic pain [facility] Diagnosis Paraplegia (HCC)- Primary Paraplegia History of lumbar fusion Paraplegia (HCC) Paraplegia History of [facility] fusion [facility]aplegia (HCC) Paraplegia History of lumbar fusion [facility]* Diagnosis Bilateral ureteral calculi- Primary Bladder calculus Other calculus in bladder documented in this encounter [facility]* Diagnosis Septic shock (HCC)- Primary Septic shock (HCC) Urinary obstruction Decubitus ulcer of sacral region, stage 2 (HCC) Injury of lumbar spinal cord, sequela (HCC) Neuropathic pain Pressure injury of coccygeal region, stage 3 (HCC) Bacteremia Pressure injury of coccygeal region, stage 3 (HCC) Calculus of ureter [facility] Diagnosis Paraplegia (HCC)- Primary Paraplegia History of lumbar fusion Sacral insufficiency fracture, initial encounter [facility]* Diagnosis Bladder calculus- Primary Other calculus in bladder Bladder calculus Other calculus in bladder Bilateral ureteral calculi Calculus of ureter documented in this encounter [facility]* Diagnosis Sacral insufficiency fracture, initial [...] stage 3 (HCC) documented in this encounter [facility]* Diagnosis Spinal cord injury, lumbar, without spinal bone injury, sequela (HCC)- Primary Neuropathic pain [facility] Diagnosis Paraplegia (HCC)- Primary Paraplegia Reflex [...] unspecified stage- Primary [facility] Diagnosis Chronic osteomyelitis (HCC)- Primary Chronic [...] Other postprocedural status documented in this encounter [facility] note* Diagnosis Paraplegia (HCC)- Primary Paraplegia Neurogenic bladder Neurogenic bladder, NOS Gross hematuria Neuropathic pain Neuralgia, neuritis, and radiculitis, unspecified Pressure injury of skin, unspecified injury stage, unspecified location documented in this encounter [facility] note* Diagnosis Ureteral stent present- Primary Kidney stone Calculus of kidney Hydronephrosis, unspecified hydronephrosis type documented in this encounter [facility] note* Diagnosis Chronic osteomyelitis (HCC)- Primary Chronic osteomyelitis, site unspecified Severe protein-calorie malnutrition (HCC) Other severe protein-calorie malnutrition Ureteral calculi Calculus of ureter Complicated UTI (urinary tract infection) Urinary tract infection, site not specified Neurogenic bladder Neurogenic bladder, NOS Type 2 diabetes mellitus with hyperglycemia, with long-term current use of insulin (HCC) documented in this encounter [facility] note* Diagnosis Other acute osteomyelitis, other site (HCC)- Primary Other acute osteomyelitis, other site (HCC) Pressure injury of coccygeal region, stage 3 (HCC) Lumbar stenosis with neurogenic claudication Osteoarthritis, unspecified osteoarthritis type, unspecified site Other intervertebral disc displacement, lumbar region Pressure injury of coccygeal region, stage 3 (HCC) documented in this encounter [facility] note* Diagnosis Pressure injury of coccygeal region, stage 3 (HCC)- Primary Other acute osteomyelitis, other site (HCC) MRSA (methicillin resistant Staphylococcus aureus) infection Methicillin resistant Staphylococcus aureus in conditions classified elsewhere and of unspecified site Encounter for long-term (current) use of antibiotics Paraplegia (HCC) Paraplegia documented in this encounter [facility] Discharge instructions* Attachments The following attachments cannot be sent through Care Everywhere. * Urinary Tract Infections in Adults ([place]err[place]) [facility] Consultation (Routine) - Pending Review Specialty Diagnoses / Procedures Referred By Daisy paredes Referred To Contact Urology Diagnoses Urinary obstruction Procedures DC OFFICE/OUTPATIENT [facility] 60 MINUTES Otis Mckenzie DO [address] [place] [address] Dashawn Grimm MD [address] [place] [address] Referral ID Status Reason Start Date Expiration Date Visits Requested Visits Authorized [id number] Pending Review Specialty Services Required 04/20/2024 04/20/2025 1 1 * Consultation (Routine) - Pending Review Specialty Diagnoses / Procedures Referred By Contac t Referred To Contact Wound Care Diagnoses Decubitus ulcer of sacral region, stage 2 (HCC) Procedures DC OFFICE/OUTPATIENT [facility] 60 MINUTES Sumi Everett APRN - CNP [address] [place] [address] Sb Op Wnd Ostomy Hbo [address] [place] [address] Referral ID Status Reason Start Date Expiration Date Visits Requested Visits Authorized [id number] Pending Review Specialty Services Required 04/15/2024 04/15/2025 1 1 [facility] (n[facility]ative)No reason for referral information availableWAdena [facility] Work Phone: reason for visit Narrative* Service Level Authorization (Routine) - Closed Specialty Diagnoses / Procedures Referred By Contac t Referred To Contact Physical Medicine & Rehab/PM&R Diagnoses Paraplegia (HCC) Reflex neurogenic bladder Procedures CYSTOMETROGRAM W/DRIVER/GUIDE BLADDER IRRIGATION, SIMPLE, LAVAGE &/OR INSTILLATION COMPLEX UROFLOWMETRY ELECTROMYOGRAPHY STUDIES, ANAL/URETHRAL SPHINCTER, OTHER THAN NEEDLE, ANY TECHNIQUE VOIDING PRESSURE STUDIES; INTRA-ABDOMINAL [place] [address] [place] [address] Phone: tel: fax: [facility] PM&R [address] [place] [address] Phone: tel: Referral ID Status Reason Start Date Expiration Date V isits Requested Visits Authorized [id number] Closed Consultation -[facility] 06/13/2024 06/13/2025 1 1 Blu for visit [...] WWO NEU1 [address] Howell, Kristine L, QUALITY AUDIT REPRESENTATIVE [address] [place] [address] Phone: tel: fax: Radiology [address] [place] [address] Phone: tel: Referral ID Status Reason Start Date Expiration Date V isits Requested Visits Authorized [id number] Authorized 11/14/2024 01/13/2025 3 3 [facility] Summary Purpose Family History No Family [...] FoundDocuments on File Type Date Recorded 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 ACP-Advance Directive ACP-Power of Search Marketing Specialist Latest Code Status on File Code Status Date Activated Date Inactivated Comments Full Code 10/24/2020 7:42 PM Full Code 01/05/2017 7:24 PM 01/06/2017 9:11 PM Documents on File Type Date Recorded 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 Advance Directive(s) 01/04/2022 9:24 [...] mellitus without complication (H[place]) [place] [address] [place] [address] [facility] [address] [place] [address] Scheduling Instructions [facility] [address] [place], [place] [address] Specialty Diagnoses / Procedures Referred By Contact Referred To Contact Physical Medicine & Rehab/PM&R Diagnoses Paraplegia (HCC) History of lumbar fusion ElysiajacqueVaishali [address] [place] [address] [facility] - Rehab [facility] [address] [place] [id number] Referral ID Status Reason Start Date Expiration Date V isits Requested Visits Authorized [id number] Authorized 02/10/2024 02/09/2025 1 1 Scheduling Instructions [...] of lumbar fusion Procedures MR L-SPINE W/+W/O ElysiajacqueVaishali DO [address] [place], [place] [id number] [facility] [address] [place], [place] [id number] Referral ID Status Reason Start Date Expiration Date V isits Requested Visits Authorized [id number] Authorized 02/10/2024 02/09/2025 1 1 Specialty Diagnoses / Procedures Referred By Contac t Referred To Contact Radiology Diagnoses Paraplegia (HCC) History of lumbar fusion Procedures XR L-SPINE AP+LATERAL 2-3 VIEWS Elysiajacque DO Vaishali [address] [place], [place] [id number] [facility] DIAGNOSTIC RADIOLOGY [address] [place] [address] [place] [address] Referral ID Status Reason Start Date Expiration Date Visits Re quested Visits Authorized [id number] Closed 02/10/2024 02/09/2025 1 1 Referral ID Status Reason Start Date Expiration Date Visits Re quested Visits Authorized [id number] Closed 02/10/2024 02/09/2025 1 1 Specialty Diagnoses / Procedures Referred By Contac t Referred To Contact Diagnoses Paraplegia (HCC) History of lumbar fusion Sacral insufficiency fracture, initial encounter Vaishali Pierre DO [address] [place] [address] Referral ID Status Reason Start Date Expiration Date Visits Requested Visits Authorized [id number] Authorized Consultatio n-[facility] 04/06/2024 04/06/2025 1 1 Scheduling Instructions You have been referred to the Spine Center. You will be contacted to schedule your appointment within 24 - 48 hours. If you are not contacted within this time frame please call the Spine Center at [phone] to schedule your appointment. Question Answer Reason [...] 2 OR 3 VIEWS Otis Mejia MD [address] [place] [address] [facility] DIAGNOSTIC RADIOLOGY [address] [place] [address] [place] [address] Referral ID Status Reason Start Date Expiration Date Visits Re quested Visits Authorized [id number] Closed 05/11/2024 05/11/2025 1 1 Specialty Diagnoses / Procedures Referred By Contac t Referred To Contact Radiology Diagnoses Sacral insufficiency fracture, initial encounter Procedures XR SACRUM-COCCYX 3 VIEWS Berna Johnson PA-C [address] [place] [address] [place] [address] [facility] DIAGNOSTIC RADIOLOGY [address] [place] [address] [place] [address] Referral ID Status Reason Start Date Expiration Date Visits Re quested Visits Authorized [id number] Closed 05/10/2024 05/10/2025 1 1 Specialty Diagnoses / Procedures Referred By Contac t Referred To Contact Radiology Diagnoses Sacral insufficiency fracture, initial encounter Procedures MR C-SPINE W/O Otis Mejia MD [address] [place] [address] [facility] MRI [address] [place] [address] Referral ID Status Reason Start Date Expiration Date V isits Requested Visits Authorized [id number] Authorized 05/11/2024 05/11/2025 1 1 Specialty Diagnoses / Procedures Referred By Contac t Referred To Contact Radiology Diagnoses Sacral insufficiency fracture, initial encounter Procedures MR T-SPINE W/O Otis Mejia MD [address] [place] [address] [facility] MRI [address] [place] [address] Referral ID Status Reason Start Date Expiration Date V isits Requested Visits Authorized [id number] Authorized 05/11/2024 05/11/2025 1 1 Specialty Diagnoses / Procedures Referred By Contac t Referred To Contact Radiology Diagnoses Sacral insufficiency fracture, initial encounter Procedures BD BONE DENSITY SURVEY Otis Mejia MD [address] [place] [address] [facility] BONE DENSITY [address] [place] [address] Referral ID Status Reason Start Date Expiration Date V isits Requested Visits Authorized [id number] Authorized 05/11/2024 05/11/2025 1 1 Specialty Diagnoses / Procedures Referred By Contac t Referred To Contact Physical Medicine & Rehab/PM&R Diagnoses Paraplegia (HCC) Reflex neurogenic bladder Faisal Simeon DO [address] [place] [address] [facility] [address] [place] [address] Referral ID Status Reason Start Date Expiration Date Visits Requested Visits Authorized [id number] Pending Review [facility] 06/13/2024 06/13/2025 3 3 Scheduling Instructions Please schedule this appointment through [facility] or call the phone number listed above. Thank you. Question Answer Is study to assess a baseline neurogenic bladder or for diagnosis of complaint? neurogenic bladder Does the patient have a known history of autonomic dysreflexia? No Should bladder medications be held prior to UDS? No Specialty Diagnoses / Procedures Referred By Daisy paredes Referred To Contact Vocational Services Diagnoses Paraplegia (HCC) Faisal Simeon DO [address] [place] [address] Referral ID Status Reason Start Date Expiration Date Visits Requested Visits Authorized [id number] Authorized [facility] 06/13/2024 06/13/2025 3 3 Scheduling Instructions Please call to schedule an appointment. If you are unable to keep your appointment, please call [phone] at least 24 hours in advance. Question Answer Reason for request: Basic Needs (i.e. medical equipment, housing, food, rent, utilities, transpo), Benefits Applications (i.e. social security, job and family services), Vocational (i.e. [place] rehab services commission, volunteer work), Other Support Services (i.e. medication programs, home accessibility, legal assistance) Other support services requested: Home accessibility Referral ID Status Reason Start Date Expiration Date Visits Re quested Visits Authorized [id number] Closed 05/11/2024 05/11/2025 1 1 Referral ID Status Reason Start Date Expiration Date Visits Re quested Visits Authorized [id number] Closed 05/11/2024 05/11/2025 1 1 Discharge Instructions [...] most local grocery stores, pharmacies, and chain [employer]-stores. ? If you have any questions about [...] Contact Information Primary Emergency Contact: Leyla Reynolds [facility] Relation: Spouse Culinary Intern needed? No Secondary Emergency Contact: Ronald Reynolds [...] MENTAL STATUS:} IV Access: { ADELINE IV ACCESS:169962046} Nursing Mobility/ADLs: Walking {CHP DME ADLs:385892066} Transfer {CHP DME ADLs:282422023} Bathing {CHP DME ADLs:808613083} Dressing {CHP DME ADLs:877856445} Toileting {CHP DME ADLs:379592066} Feeding {CHP DME ADLs:576778357} Research Assistant Professor {CHP DME ADLs:134887141} Med Delivery { ADELINE MED Delivery:795381968} Wound Care Documentation and Therapy: Elimination: Continence: Bowel: {YES / NO:} Bladder: {YES / NO:} Urinary Catheter: {Urinary Catheter:225783197} Colostomy/Ileostomy/Ileal Conduit: {YES / NO:} Date of Last BM: Intake/Output Summary (Last 24 hours) at 10/24/2020 1333 Last data filed at 10/24/2020 1139 Gross per 24 hour Intake 1000 ml Output 325 ml Net 675 ml No intake/output data recorded. Safety Concerns: { ADELINE Safety Concerns:881607719} Impairments/Disabilities: { ADELINE Impairments/Disabilities:124125690} Nutrition Therapy: Current Nutrition Therapy: { ADELINE Diet List:536642296} Routes of Feeding: {CHP DME Other Feedings:158760271} Liquids: {[employer] liquid thickness:53659} Daily Fluid Restriction: {CHP DME Yes amt example:276172498} Last Modified Barium Swallow with Video (Video Swallowing Test): {Done Not Done Date:} Treatments at the Time of Hospital Discharge: Respiratory Treatments: Oxygen Therapy: {Therapy; copd oxygen:86643} Ventilator: { CC Vent List:598202013} Rehab Therapies: {THERAPEUTIC INTERVENTION:3404929964} Weight Bearing Status/Restrictions: { CC Weight Bearin} Other Medical Equipment (for information only, NOT a DME order): {EQUIPMENT:777703164} Other Treatments: Patient's personal belongings (please select all that are sent with patient): {[facility] DME Belongings:935155351} RN SIGNATURE: {Esignature:799810819} CASE MANAGEMENT/SOCIAL WORK SECTION Inpatient Status Date: Readmission Risk Assessment Score: Readmission Risk Risk of Unplanned Readmission: 0 Discharging to Facility/ Agency Name: Address: Phone: Fax: Dialysis Facility (if applicable) Name: Address: Dialysis Schedule: Phone: Fax: Glue Spreader/Billet Heater signature: {Esignature:082370810} PHYSICIAN SECTION Prognosis: {Prognosis:3491564247} Condition at Discharge: { Patient Condition:952463722} Rehab Potential (if transferring to Rehab): {Prognosis:2872519047} Recommended Labs or Other Treatments After Discharge: Physician Certification: I certify the above information and transfer of Anmol Franco Gail is necessaryfor the continuing treatment of the diagnosis listed and that he requires {Admit to Appropriate Level of Care:32120} for {GREATER/LESS:008642828} 30 days. Update Admission H&P: {CHP DME Changes in HandP:852793717} PHYSICIAN SIGNATURE: * Additional Instructions* Opal Vigil MD - 10/24/2020 Every day change the dressing frequently to keep clean and dry 4 x 4 gauze pads paper tape. May shower 3 days. Avoid soaking or soap for 1 week. Recheck 1 month 6853957. E prescribed [place] 5/325 #28 done documented in this encounter [...] Code Status: Full Code PT/OT Eval * Born, Adjondliliana Moon, QUALITY AUDIT REPRESENTATIVE - DEMURRAGE AGENT - 10/25/2020 9:43 AM EST Patient is [...] region, with neurogenic claudication [place] [address] DISCHARGE SUMMARY PATIENT NAME: ANMOL REYNOLDS : 1960 MED REC NO: [id number] ROOM: [facility] ACCOUNT NO: [id number] ADMIT DATE: 10/24/2020 PROVIDER: Opal Vigil MD DISCH DATE: HOSPITAL COURSE: Left and bilateral L2-L3, L3-L4, L4-L5 micro decompressions. The patient tolerated the procedure well. Wound drain in place, removal the next day. Once ambulatory with bladder control, plan discharge in good condition. DISCHARGE DIAGNOSIS: L2, L3, L4, L5 canal stenosis with neurogenic claudication, improved. DISCHARGE MEDICATION: [place] 5/325, #28. DISCHARGE INSTRUCTIONS: The patient has been instructed to keep the wound clean and dry about three days, avoiding soaking or soap for a week, recheck in a month. If he has any questions or problems, please contact the office. OPAL VIGIL MD /[email or web address] Doc#: [id number] CC: Chief Complaint and Reason for Visit Chief Complaint LABWORK Chief Complaint LABWORK [facility] LAB WORK Chief Complaint LABWORK [facility] LAB WORK [facility] LAB WORK Chief Complaint [facility] LAB WOR K [facility] LAB WORK [facility] LAB WORK LABWORK Chief Complaint LABWORK [facility] LAB WORK LABWORK Chief Complaint LABWORK [facility] LAB WORK LABWORK [facility] LAB WORK Chief Complaint Admit Date [facility] LAB WORK September 20 5:00am [facility] LAB WORK September 29 4:00am [facility] LAB WORK October 03 5:00am LABWORK October 10, 2024 5: 00am [facility] LAB WORK November 29 4:45am LABWORK November 30, 2024 5:00am Chief Complaint Admit Date [facility] LAB WORK September 20 5:00am [facility] LAB WORK September 29 4:00am [facility] LAB WORK October 03 5:00am LABWORK October 10, 2024 5: 00am [facility] LAB WORK November 29 4:45am LABWORK November 30, 2024 5:00am [facility] LAB WORK December 07, 2024 5: 00am Chief Complaint Admit Date [facility] LAB WORK November 29 4:45am LABWORK November 30, 2024 5:00am [facility] LAB WORK December 07, 2024 5: 00am [facility] LAB WORK January 09, 2025 5: 00am LABWORK February 15, 2025 4:20a m LABOWRK March 01, 2025 5:00a m Chief Complaint Admit Date [facility] LAB WORK November 29 4:45am LABWORK November 30, 2024 5:00am [facility] LAB WORK December 07, 2024 5: 00am [facility] LAB WORK January 09, 2025 5: 00am LABWORK February 15, 2025 4:20a m Chief Complaint Admit Date [facility] LAB WORK April 16, 2025 11 :00pm [facility] LAB WORK April 18, 2025 5: 34am LABWORK May 01, 2025 5:00 am LABWORK May 03, 2025 5:00 am [facility] LAB WORK May 09, 2025 5 :00am LABWORK May 11, 2025 5:0 0am [facility] LAB WORK May 15, 2025 4:00am [facility] LAB WORK May 22, 2025 4:00am [facility] LAB WORK May 25, 2025 5:00am LABWORK May 29, 2025 5: 00am Additional Source Comments (unrecognized sect ion and content) No Status Records FoundNo Status Records FoundNo Status Records FoundNo Status Records FoundNo Status Records FoundNo Status Records FoundNo Status Records FoundNo Status Records FoundNo Status Records FoundNo Status Records FoundNo Status Records FoundNo Status Records FoundNo Status Records FoundNo Status Records Found INFORMATION SOURCE (unrecogn ized section and content) DATE CREATED AUTHOR 03/30/2018 [facility] DATE CREATED AUTHOR AUTHOR'S ORGANIZ ATION 03/31/2018 [facility] DATE CREATED AUTHOR AUTHOR'S ORGANIZ ATION 06/22/2018 [facility] DATE CREATED AUTHOR AUTHOR'S ORGANIZ ATION 07/08/2018 [facility] DATE CREATED AUTHOR AUTHOR'S ORGANIZ ATION 10/20/2020 [facility] [place] [place] DATE CREATED AUTHOR AUTHOR'S ORGANIZ ATION 10/27/2020 [facility] [place] [place] DATE CREATED AUTHOR AUTHOR'S ORGANIZ ATION 05/24/2021 [facility] DATE CREATED AUTHOR AUTHOR'S ORGANIZ ATION 10/16/2021 [facility] DATE CREATED AUTHOR AUTHOR'S ORGANIZ ATION 04/25/2022 [facility] DATE CREATED AUTHOR AUTHOR'S ORGANIZ ATION 11/10/2024 [facility] DATE CREATED AUTHOR AUTHOR'S ORGANIZ ATION 03/22/2025 [facility] DATE CREATED AUTHOR AUTHOR'S ORGANIZ ATION 03/27/2025 [facility] DATE CREATED AUTHOR AUTHOR'S ORGANIZ ATION 06/04/2025 [facility] DATE CREATED AUTHOR AUTHOR'S ORGANIZ ATION 08/11/2025 [facility] Reason for Visit (unrecogniz ed section and content) Status Reason Specialty Diagnoses / Procedures Referre d By Contact Referred To Contact Diagnoses L2-3-4-5 STENOSIS Procedures DC LAMINECTOMY,>2 SGMT,LUMBAR LEFT BILATERAL L2-3-4-5 DECOMPRESSION. 2.5 HOURS, C-ARM, POWER NESTOR. 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 He states he has "jolts"of pain in his legs as well as a burning sensation. He was put on Lyrica which he states is not working. Reason Comments New patient, to establish relationship [facility] mri Specialty Diagnoses / Procedures Referred By Daisy paredes Referred To Contact Radiology Diagnoses Paraplegia (HCC) History of lumbar fusion Procedures MR L-SPINE W/+W/O Placejacque, Vaishali, DO [address] [place] [address] [facility] MRI [address] [place] [address] Referral ID Status Reason Start Date Expiration Date Visits Re quested Visits Authorized [id number] Closed 02/10/2024 02/09/2025 1 1 Reason Comments Leg Pain Specialty Diagnoses / Procedures Referred By Daisy paredes Referred To Contact Diagnoses Urinary obstruction Septic shock (HCC) Procedures - Lauryn Hooker MD [address] [facility] [address] [place] [address] [facility] [address] [phone] Referral ID Status Reason Start Date Expiration Date Visits Re quested Visits Authorized [id number] 1 1 Reason Onset Date Comments Surgery Scheduling 04/15/2024 Reason Onset Date Comments Reschedule 05/04/2024 Specialty Diagnoses / Procedures Referred By Daisy paredes Referred To Contact Diagnoses Calculus of ureter Procedures DC CYSTOURETHROSCOPY DC LITHOLAPAXY COMP/LG > 2.5 CM DC CYSTO W/URETEROSCOPY W/LITHOTRIPSY DC CYSTO W/INSERT URETERAL STENT CYSTOSCOPY POSSIBLE CYSTOLITHOLAPAXY BILATERAL URETEROSCOPY ASTRID LASER LITHOTRIPSY BILATERAL URETERAL STENT CHANGE Dashawn Grimm MD [address] [place] [address] [address] [place] [address] Referral ID Status Reason Start Date Expiration Date Visits Re quested Visits Authorized [id number] 1 1 Reason Onset Date Comments Update 05/10/2024 Specialty Diagnoses / Procedures Referred By Contac t Referred To Contact Radiology Diagnoses Sacral insufficiency fracture, initial encounter Procedures XR SACRUM-COCCYX 3 VIEWS Berna Johnson PA-C [address] [facility] [place] [address] [facility] DIAGNOSTIC RADIOLOGY [address] [facility] [place] [address] Referral ID Status Reason Start Date Expiration Date Visits Re quested Visits Authorized [id number] Closed 05/10/2024 05/10/2025 1 1 Reason Onset Date Comments Labs Only 05/13/2024 Reason Comments Numbness/tingling New patient, to establish relationship Specialty Diagnoses / Procedures Referred By Anaidac t Referred To Contact Diagnoses Paraplegia (HCC) History of lumbar fusion Sacral insufficiency fracture, initial encounter Vaishali Pierre DO [address] [place] [address] Referral ID Status Reason Start Date Expiration Date V isits Requested Visits Authorized [id number] Closed Consultation -[facility] 04/06/2024 04/06/2025 1 1 Reason Comments Other Abnormal labs, blood cultures has been done to pt in facility, gram + cocci. Had back sx 2 yrs ago that resulted to paraplegia, pt is paralyze from waist down. Afebrile, aox4 Specialty Diagnoses / Procedures Referred By Daisy t Referred To Contact Diagnoses Positive blood cultures Procedures - Heydi Concepcion MD [address] [place] [address] [facility] Emergency Dept [address] [place] [phone] Referral ID Status Reason Start Date Expiration Date Visits Re quested Visits Authorized [id number] 1 1 Reason Comments New Patient Leg Pain Pt states having jeri n on his paralyzed legs, pain rate 8/10. Reason Comments New patient, to establish relationship Specialty Diagnoses / Procedures Referred By Contact Referred To Contact Physical Medicine & Rehab/PM&R Diagnoses Paraplegia (HCC) History of lumbar fusion Vaishali Pierre DO [address] [place] [address] [facility] - Rehab [facility] [address] [place] [phone] Referral ID Status Reason Start Date Expiration Date V isits Requested Visits Authorized [id number] Pending Review 02/10/2024 02/09/2025 1 1 Reason Onset Date Comments Reschedule 06/15/2024 Specialty Diagnoses / Procedures Referred By Contac t Referred To Contact Radiology Diagnoses Sacral insufficiency fracture, initial encounter Procedures MR T-SPINE W/O Otis Mejia MD [address] [place], [place] [id number] [facility] [address] [place] [address] Referral ID Status Reason Start Date Expiration Date Visits Re quested Visits Authorized [id number] Closed 05/11/2024 05/11/2025 1 1 Reason Comments Evaluation Follow up Reason Comments Osteoporosis Reason Onset Date Comments Appointment 10/25/2024 Reason Onset Date Comments Hospital F/U 02/19/2025 Reason Onset Date Comments Other 03/07/2025 Reason Comments Evaluation Reason Comments Nephrolithiasis Reason Comments Wound Check Sacrum / left ischiu m Reason Comments Wound Infection Per EMS pt was sent here from the [facility] for wound infections. Pt has two wound on his sacrum - one at the top of sacrum and one at the bottom of the buttocks. Denies any fever/ CP/FEVER/ SOB. Pt is paralysis. Specialty Diagnoses / Procedures Referred By Contac t Referred To Contact Diagnoses Other acute osteomyelitis, other site (HCC) Procedures m86.18 Georgette Bueno MD [address] [place] [address] Phone: tel: fax: [facility] Medical Unit [address] [place] [phone] Phone: tel: Referral ID Status Reason Start [...] or prosecute any alcohol or drug abuse patient.[facility] the event this information is protected by the Federal Confidentiality of Alcohol and Drug Abuse Patient Records regulations: The Federal rules restrict any use of the information to criminally investigate or prosecute any alcohol or drug abuse patient.[facility] Hospital[facility] the event this information is protected by the Federal Confidentiality of Alcohol and Drug Abuse Patient Records regulations: The Federal rules restrict any use of the information to criminally investigate or prosecute any alcohol or drug abuse patient.[facility] Hospital[facility] the event this information is protected by the Federal Confidentiality of Alcohol and Drug Abuse Patient Records regulations: The Federal rules restrict any use of the information to criminally investigate or prosecute any alcohol or drug abuse patient.[facility] Hospital[facility] the event this information is protected by the Federal Confidentiality of Alcohol and Drug Abuse Patient Records regulations: The Federal rules restrict any use of the information to criminally investigate or prosecute any alcohol or drug abuse patient.[facility] HospitalIn the event this information is protected by the Federal Confidentiality of Alcohol and Drug Abuse Patient Records regulations: The Federal rules restrict any use of the information to criminally investigate or prosecute any alcohol or drug abuse patient.[facility] HospitalIn the event this information is protected by the Federal Confidentiality of Alcohol and Drug Abuse Patient Records regulations: The Federal rules restrict any use of the information to criminally investigate or prosecute any alcohol or drug abuse patient.[facility] HospitalIn the event this information is protected by the Federal Confidentiality of Alcohol and Drug Abuse Patient Records regulations: The Federal rules restrict any use of the information to criminally investigate or prosecute any alcohol or drug abuse patient.[facility] Care Teams (unrecognized sec tion and content) Film Painter Relationship Specialty Start Date End Date Ambrosio Monroy DO [address] [facility] [address] [place] [address] PCP - General Family Practice 05/21/17 Penny Cameron MD [address] [address] Consulting General Surgery 01/17/21 Gayle Scott MD [address] [place] [address] Consulting Infectious Diseases 12/03/21 Ambrosio Monroy DO [address] [facility] [address] [place], [place] [address] Home Care Physician Internal Medicine 12/03/21 Film Painter Relationship Specialty Start Date End Date Ambrosio Monroy DO [address] [place] [address] PCP - General Family Practice 05/21/17 Penny Cameron MD [address] [address] Consulting General Surgery 01/17/21 Gayle Scott MD [address] [place] [address] Consulting Infectious Diseases 12/03/21 Ambrosio Monroy DO [address] [place] [address] Home Care Physician Internal Medicine 12/03/21 Film Painter Relationship Specialty Start Date End Date Ambrosio Monroy DO [address] [place] [address] PCP - General Family Practice 05/21/17 Penny Cameron MD [address] [address] Consulting General Surgery 01/17/21 Gayle Scott MD [address] [place] [address] Consulting Infectious Diseases 12/03/21 Ambrosio Monroy DO [address] [place] [address] Home Care Physician Internal Medicine 12/03/21 Team Status: Active Member Role Status Dates Dr. Ambrosio Monroy , Primary Care Provider Active Team Status: Inactive Member Role Status Dates Dr. Ambrosio Monroy DO Primary Care Provider Active Tab MURO Attending Provider Active Team Status: Active Member Role Status Dates Dr. Ambrosio Monroy DO Primary Care Provider Active Tab MURO Attending Provider Active Film Painter Relationship Specialty Start Date End Date Ambrosio Monroy DO [address] [place] [address] PCP - General 06/07/17 Team Status: Inactive Member Role Status Dates Dr. Ambrosio Monroy DO Primary Care Provider Active Tab MURO Attending Provider, Referring Provi krish Active Film Painter Relationship Specialty Start Date End Date Ambrosio Monroy DO [address] [place] [address] PCP - General 06/07/17 Film Painter Relationship Specialty Start Date End Date Ambrosio Monroy DO [address] [place] [address] PCP - General 06/07/17 Film Painter Relationship Specialty Start Date End Date Ambrosio Monroy DO [address] [place] [address] PCP - General 06/07/17 Film Painter Relationship Specialty Start Date End Date Ambrosio Monroy DO [address] [place] [address] PCP - General 06/07/17 Film Painter Relationship Specialty Start Date End Date Juan VaishaliDO [address] [place], [place] [address] Physician Physical Medicine & Rehab/PM&R 03/05/24 Film Painter Relationship Specialty Start Date End Date Ambrosio Monroy DO [address] [place] [address] PCP - General 06/07/17 Film Painter Relationship Specialty Start Date End Date [facility]ros[facility] Monroy DO [facility] [address] [place] [address] PCP - General 06/07/17 Film Painter Relationship Specialty Start Date End Date Ambrosio Monroy DO [address] [place] [address] PCP - General 06/07/17 Film Painter Relationship Specialty Start Date End Date Juan VaishaliDO [address] [place], [place] [address] Physician Physical Medicine & Rehab/PM&R 03/05/24 Film Painter Relationship Specialty Start Date End Date [facility]rosio Monroy DO [facility] [address] [place] [address] PCP - General 06/07/17 Dashawn Grimm MD [address] [address] Surgeon Urology 05/05/24 Film Painter Relationship Specialty Start Date End Date Ambrosio Monroy DO [facility] [address] [place] [address] PCP - General 06/07/17 Dashawn Grimm MD [address] [address] Surgeon Urology 05/05/24 Film Painter Relationship Specialty Start Date End Date Vaishali PierreDO [address] [place] [address] Physician Physical Medicine & Rehab/PM&R 03/05/24 Film Painter Relationship Specialty Start Date End Date Vaishali Pierre [address] [place] [address] Physician Physical Medicine & Rehab/PM&R 03/05/24 Film Painter Relationship Specialty Start Date End Date Ambrosio Monroy DO [address] [facility] [address] [place] [address] PCP - General 06/07/17 Dashawn Grimm MD [address] [address] Surgeon Urology 05/05/24 Film Painter Relationship Specialty Start Date End Date Vaishali Pierre [address] [place] [address] Physician Physical Medicine & Rehab/PM&R 03/05/24 Film Painter Relationship Specialty Start Date End Date Ambrosio Monroy DO [address] [facility] [address] [place] [address] PCP - General 06/07/17 05/18/24 Tab Dupont [address] [place] [phone] PCP - General Internal Medicine 05/19/24 Dashawn Grimm MD [address] [address] Surgeon Urology 05/05/24 Film Painter Relationship Specialty Start Date End Date Ambrosio Monroy DO [address] [facility] [address] [place] [address] PCP - General 06/07/17 05/18/24 Film Painter Relationship Specialty Start Date End Date Vaishali Pierre DO [address] [place] [address] Physician Physical Medicine & Rehab/PM&R 03/05/24 Otis Mejia MD [address] [place] [address] Physician Orthopaedic Surgery 06/11/24 Film Painter Relationship Specialty Start Date End Date Vaishali Pierre DO [address] [place] [address] Physician Physical Medicine & Rehab/PM&R 03/05/24 Otis Mejia MD [address] [place] [address] Physician Orthopaedic Surgery 06/11/24 Film Painter Relationship Specialty Start Date End Date Tab Dupont [address] [place] [phone] PCP - General Internal Medicine 05/19/24 Dashawn Grimm MD [address] [place] [phone] Surgeon Urology 05/05/24 Film Painter Relationship Specialty Start Date End Date Vaishali Pierre DO [address] [place] [phone] Physician Physical Medicine & Rehab/PM&R 03/05/24 Otis Mejia MD [address] [place] [address]87 Physician Orthopaedic Surgery 06/11/24 Film Painter Relationship Specialty Start Date End Date Vaishali Pierre DO [address] [place] [address]67 Physician Physical Medicine & Rehab/PM&R 03/05/24 Otis Mejia MD [address] [place] [address]78 Physician Orthopaedic Surgery 06/11/24 Film Painter Relationship Specialty Start Date End Date Vaishali Pierre DO [address] [place] [address] 26158 Physician Physical Medicine & Rehab/PM&R 03/05/24 Otis Mejia MD [address] [place] [address] 40816 Physician Orthopaedic Surgery 06/11/24 Film Painter Relationship Specialty Start Date End Date Vaishali Pierre DO [address] [place] [address]64 Physician Physical Medicine & Rehab/PM&R 03/05/24 Otis Mejia MD [address] [place] [address]258 Physician Orthopaedic Surgery 06/11/24 Film Painter Relationship Specialty Start Date End Date Vaishali Pierre DO [address] [place] [address] 41274 Physician Physical Medicine & Rehab/PM&R 03/05/24 Otis Mejia MD [address] [place] [address] 12049 Physician Orthopaedic Surgery 06/11/24 Film Painter Relationship Specialty Start Date End Date JuanVaishali [address] [place] [address]30 Physician Physical Medicine & Rehab/PM&R 03/05/24 Otis Mejia MD [address] [place] [address] 18916 Physician Orthopaedic Surgery 06/11/24 Film Painter Relationship Specialty Start Date End Date Juan VaishaliDO [address] [place] [address] 97228 Physician Physical Medicine & Rehab/PM&R 03/05/24 Otis Mejia MD [address] [place] [address]359 Physician Orthopaedic Surgery 06/11/24 Giuliano Shultz DO [address] [place] [address] 26048 Physician Rheumatology 09/10/24 Faisal Simeon DO [address] [place] [address] Physician Physical Medicine & Rehab/PM&R 09/30/24 Film Painter Relationship Specialty Start Date End Date Tab Dupont [address] [place] [phone] PCP - General Internal Medicine 05/19/24 Dashawn Grimm MD 201 [facility] 3 [place] [address] Surgeon Urology 05/05/24 Team Status: Inactive Member [...] Monroy , Primary Care Provider Active Start: December 07, 2024 End: December 07, 2024 Tab MURO Attending Provider Active Sta rt: December 07, 2024 End: December 07, 2024 Film Painter Relationship Specialty Start Date End Date Penny Cameron MD [address] [address] Consulting General Surgery 01/17/21 Gayle Scott MD [address] [place] [phone] Consulting Infectious Diseases 12/03/21 Ambrosio Monroy MD [address] [place] [address] Home Care Provider Internal Medicine 12/03/21 Film Painter Relationship Specialty Start Date End Date Tab Dupont [address] [place] [phone] PCP - General Internal Medicine 05/19/24 Dashawn Grimm MD [address] [place] [address] 3 [place] [address] Surgeon Urology 05/05/24 Film Painter Relationship Specialty Start Date End Date Penny Cameron MD [address] [address] Consulting General Surgery 01/17/21 Gayle Scott MD [address] [place] [place] [phone] Consulting Infectious Diseases 12/03/21 Ambrosio Monroy MD 195 [facility] 402 [place] [address] Home Care Provider Internal Medicine 12/03/21 Film Painter Relationship Specialty Start Date End Date Penny Cameron MD [address] [facility] [address] [place] [address] Consulting General Surgery 01/17/21 Gayle Scott MD 224 [facility] 290 [place] [phone] Consulting Infectious Diseases 12/03/21 Ambrosio Monroy MD 195 [facility] [address] [place] [address] Home Care Provider Internal Medicine 12/03/21 Film Painter Relationship Specialty Start Date End Date Tab Dupont [address] [place] [phone] PCP - General Internal Medicine 05/19/24 Dashawn Grimm MD [address] [address] Surgeon Urology 05/05/24 Film Painter Relationship Specialty Start Date End Date Tab Dupont [address] [place] [phone] PCP - General Internal Medicine 05/19/24 Dashawn Grimm MD [address] [address] Surgeon Urology 05/05/24 Film Painter Relationship Specialty Start Date End Date Tab Dupont [address] [place] [address] PCP - General Internal Medicine 05/19/24 Dashawn Grimm MD [address] [facility] 3 [place] [address] Surgeon Urology 05/05/24 Film Painter Relationship Specialty Start Date End Date Vaishali Pierre DO [address] [place] [address] Physician Physical Medicine & Rehab/PM&R 03/05/24 Otis Mejia MD [address] [place] [address] Physician Orthopaedic Surgery 06/11/24 Giuliano Shultz DO [address] [place] [address]55 Physician Rheumatology 09/10/24 Faisal Simeon DO [address] [place] [address] Physician Physical Medicine & Rehab/PM&R 09/30/24 Team [...] March 01, 2025 End: March 01, 2025 Film Painter Relationship Specialty Start Date End Date Tab Dupont [address] [place] [phone] PCP - General Internal Medicine 05/19/24 Dashawn Grimm MD [address] [address] Surgeon Urology 05/05/24 Team Status: Active Member Role Status Dates Dr. Ambrosio Monroy , Primary Care Provider Active Start: March 01, 2025 Tab MURO Attending Provider Active Sta rt: March 01, 2025 Film Painter Relationship Specialty Start Date End Date Tab Dupont [address] [place] [phone] PCP - General Internal Medicine 05/19/24 Dashawn Grimm MD [address] [address] Surgeon Urology 05/05/24 Film Painter Relationship Specialty Start Date End Date Penny Cameron MD 970 [facility] [address] [place] [address] Consulting General Surgery 01/17/21 Gayle Scott MD [address] [facility] [address] [place] [phone] Consulting Infectious Diseases 12/03/21 Ambrosio Monroy MD 195 [facility] [address] [place] [address] Home Care Provider Internal Medicine 12/03/21 Film Painter Relationship Specialty Start Date End Date Tab Dupont MD 3300 [facility] 8 [place] [address] PCP - General Internal Medicine 03/20/25 Penny Cameron MD [address] [facility] [address] [place] [address] Consulting General Surgery 01/17/21 Gayle Scott MD 224 [facility] [address] [place] [phone] Consulting Infectious Diseases 12/03/21 Ambrosio Monroy MD 195 [facility] [address] [place] [address] Home Care Provider Internal Medicine 12/03/21 Film Painter Relationship Specialty Start Date End Date Tab Dupont [address] [place] [phone] PCP - General Internal Medicine 05/19/24 Dashawn Grimm MD [address] [address] Surgeon Urology 05/05/24 Film Painter Relationship Specialty Start Date End Date Tab Dupont [address] [place] [phone] PCP - General Internal Medicine 05/19/24 Dashawn Grimm MD [address] [address] Surgeon Urology 05/05/24 Team Status: Active Member Role/Relationship Status Dates Dr. Ambrosio Monroy , DO Primary care physician Active Team Status: Active Member Role/Relationship Status Dates Dr. Ambrosio Monroy DO Primary care physician Active Start: April 16, 2025 Tab MURO Attending physician Active St art: April 16, 2025 Team Status: Active Member Role/Relationship Status Dates Dr. Ambrosio Monroy DO Primary care physician Active Start: April 18, 2025 Tab MURO Attending physician Active St art: April 18, 2025 Team Status: Active Member Role/Relationship Status Dates Dr. Ambrosio Monroy DO Primary care physician Active Start: May 01, 2025 Tab MURO Attending physician Active St art: May 01, 2025 Team Status: Active Member Role/Relationship Status Dates Dr. Ambrosio Monroy DO Primary care physician Active Start: May 03, 2025 Tab MURO Attending physician Active St art: May 03, 2025 Team Status: Active Member Role/Relationship Status Dates Dr. Ambrosio Monroy DO Primary care physician Active Start: May 09, 2025 Tab MURO Attending physician Active St art: May 09, 2025 Team Status: Active Member Role/Relationship Status Dates Dr. Ambrosio Monroy DO Primary care physician Active Start: May 11, 2025 Tab MURO Attending physician Active St art: May 11, 2025 Team Status: Active Member Role/Relationship Status Dates Dr. Ambrosio Monroy DO Primary care physician Active Start: May 15, 2025 Tab MRUO Attending physician Active St art: May 15, 2025 Tab MURO Referring Provider Active Sta rt: May 15, 2025 Team Status: Active Member Role/Relationship Status Dates Dr. Ambrosio Monroy DO Primary care physician Active Start: May 22, 2025 Tab MURO Attending physician Active St art: May 22, 2025 Tab MURO Referring Provider Active Sta rt: May 22, 2025 Team Status: Inactive Member Role/Relationship Status Dates Dr. Ambrosio Monroy DO Primary care physician Active Start: May 25, 2025 End: May 25, 2025 Tab MURO Attending physician Active St art: May 25, 2025 End: May 25, 2025 Team Status: Inactive Member Role/Relationship Status Dates Dr. Ambrosio Monroy DO Primary care physician Active Start: May 29, 2025 End: May 29, 2025 Tab MURO Attending physician Active St art: May 29, 2025 End: May 29, 2025 Team Status: Active Member Role/Relationship Status Dates Dr. Ambrosio Monroy DO Primary care physician Active Start: July 17, 2025 Tab MURO Attending physician Active St art: July 17, 2025 Team Status: Active Member Role/Relationship Status Dates Dr. Ambrosio Monroy DO Primary care physician Active Start: July 31, 2025 Tab MURO Attending physician Active St art: July 31, 2025 Film Painter Relationship Specialty Start Date End Date Juan VaishaliDO [address] [place], [place] [phone] Physician Physical Medicine & Rehab/PM&R 03/05/24 Otis Mejia MD [address] [place], [place] [phone] Physician Orthopaedic Surgery 06/11/24 Giuliano Shultz DO [address] [place] [address] Physician Rheumatology 09/10/24 Faisal Simeon DO [address] [place], [place] [phone] Physician Physical Medicine & Rehab/PM&R 09/30/24 Goals (unrecognized section and content) Goals may [...] 2106 (Given - Provider: Marino Trevizo, LIBRADO) 202 (Given - Provider: Erika Li RN) Insulin [...] parameters not met) 0828 (Given - Provider: Allei Griffin RN)1220 (Given - Provider: Allie Griffin, LIBRADO)1648 (Given - Provider: Allie Griffin, LIBRADO) 0904 (Given - Provider: Faby Maxwell, LIBRADO)1258 (Given - Provider: Fabymarianna Maxwell RN)1747 (Given - Provider: Faby Maxwell, LIBRADO) Insulin [...] Meropenem Med-Surg/Crit Care Init Dosing HARINDER 8, Filter Filler cl >=50, 3h Mini-Bag Plus bag, Suspected [...] Allie Griffin RN)2106 (Given - Provider: Marino Trevizo RN) 0828 (Given - Provider: Allie Griffin RN)1620 (Given - Provider: Allie Griffin RN)2027 (Given - Provider: Erika Li LIBRADO) 0904 (Given - Provider: Faby Maxwell, RN)1300 (Given - Provider: Faby Maxwell, RN) sodium chloride 0.9% (NS) flush 10 mL 10 mL, IntraVENous, Every 12 hours scheduled (2 times per day), First dose on Fabiola 04/14/24 at 2245 0834 (Given - Provider: Allie Griffin, RN)2112 (Given - Provider: Marino Trevizo RN) [...] opioid reversal, respiratory depression, Starting on Fabiola 7/11/24 at 2017, +++ For RR <10, pinpoint pupils, over sedation for opioid reversal - MUST notify motion picture critic provider immediately after first dose, may give [...] 2240 0831 (Given - Provider: Allie Griffin, LIBRADO)1526 (Given - Provider: Allie Griffin, LIBRADO) 1619 (Given - Provider: Allie Griffin, RN)2028 [...] 2,000 mg, IntraVENous, Administer over 30 Minutes, Marketing Development Representative to O.R., On Fabiola 05/05/24 at 1115, [...] Oral, Daily PRN, constipation, Starting on Fabiola 8/1/24 at 1654, 2nd line for treatment of [...] sedation for opioid reversal - MUST notify motion picture critic provider immediately after first dose, may give [...] 0837 (Given - Provider: Elly Cormier, LIBRADO) 08 (Given - Provider: Elly Cormier RN) [...] Provider: Dedrick Martin RN - Reason: Patient/family refused)6 (Not Given - Provider: Aleksandra Pinon RN [...] 12 Units 2045 (Given - Provider: Aleksandra Pinon, RN) [...] Benz, RN)1101 (Given - Provider: Dedrick Martin, RN)2051 (Given - Provider: Aleksandra Pinon, RN) 033 (Given - Provider: Aleksandra Pinon, RN) naloxone (Narcan) injection 0.4 mg 0.4 mg, IntraVENous, Every 5 min PRN, opioid reversal, respiratory depression, Starting on Thu05/18/24 at 0051, +++ For RR <10, pinpoint pupils, over sedation for opioid reversal - MUST notify motion picture critic provider immediately after first dose, may give [...] sodium chloride 0.9 % 100 mL IVPB (Add-Inglis) 3,000 mg, IntraVENous, at 200 mL/hr, Administer over 30 Minutes, Every 6 hours, First dose on 7/23/25 at 1230, ADD-Inglis bag, Suspected Indication (Select all that apply): Bone and Joint Infection 1519 (New Bag - Provider: Christel Brower, RN)1616 (Stopped - Provider: Christel Brower RN)2105 (New Bag - Provider: Valarie King RN)2155 (Stopped - Provider: Valarie King, LIBRADO) 0253 (New Bag - Provider: Valarie King RN)0531 (Stopped - Provider: Valarie King RN)0853 (New Bag - Provider: Cheryl Foster RN)0947 (Stopped - Provider: Cheryl Foster RN)1506 (New Bag - Provider: Cheryl Foster, RN)1619 (Stopped - Provider: Cheryl Foster RN)2125 (New Bag - Provider: Valarie King RN) 0013 (Stopped - Provider: Valarie King RN)0402 (New Bag - Provider: Valarie King RN)0441 (Stopped - Provider: Valarie King RN)1107 (New Bag - Provider: Joann King RN)1139 (Stopped - Provider: Joann King RN)1608 (New Bag - Provider: Joann King, LIBRADO)1659 (Stopped - Provider: Joann King RN)2100 (Canceled [...] Christel Brower RN)1244 (Given - Provider: Christel Witting, RN)1704 (Given - Provider: Christel Brower RN) 0851 (Not Given - Provider: Cheryl Foster RN - Reason: Order parameters not met)1222 (Given - Provider: Cheryl Foster RN)1727 (Given - Provider: Cheryl Foster RN) 0907 (Given - Provider: Joann King, RN)1321 (Given - Provider: Joann King, RN)1745 (Given - Provider: Joann King, RN) Insulin Lispro (Humalog) injection 0-18 Units 0-18 [...] King RN) 0852 (Given - Provider: Cheryl Fostre RN)1354 (Given - Provider: Cheryl Foster RN)2124 [...] RN) 0853 (Given - Provider: Cheryl Foster RN)0795 (Given - Provider: Valarie King RN) dextrose 5 % infusion 100 mL/hr, [...] BE BASED ON THE PRIMARY CLINICAL RECORDS. [facility]. provides no warranty or guarantee of the accuracy or completeness of information in this document.
[2025-09-06 07:56] LABS: Hematocrit 36.6 % (40-54); Hemoglobin 12.0 g/dL (13.0-16.5); Mean Corp Hgb Conc 32.8 g/dL (32-36); Mean Corpuscular Volume 89.3 fL (80-94); Mean Platelet Vol. 9.9 fl (6.2-12.0); Platelet Count 258 K/mm3 (150-450); RBC Distribution Width CV 14.8 % (11.6-14.6); RBC Distribution Width SD 48.7 fl (35.1-43.9); Red Blood Count 4.10 M/mm3 (4.6-6.2); White Blood Count 8.0 K/mm3 (4.4-11.0)
[2025-09-06 08:15] LABS: Anion Gap 10 (5-15); BUN 10 mg/dL (4-19); BUN/Creat Ratio 18.4 RATIO (10-20); Calcium,Total 8.9 mg/dL (7.6-11.0); Carbon Dioxide 23.6 mmol/L (21.0-32.0); Chloride 101 mmol/L (98-108); Glucose 258 mg/dL (70-99); Potassium 4.1 mmol/L (3.3-5.1)
== END ==
LOC: OLS.SANC 05:00
PROVIDERS: PCP Family Medicine; Visit Provider Internal Medicine
DX: D64.9 Anemia, unspecified (principal); N40.0 Benign prostatic hyperplasia without lower urinary tract symptoms; E11.9 Type 2 diabetes mellitus without complications
CPT/HCPCS: 36415; 80048; 85027

== ENCOUNTER → 2025-10-04 05:00 | Outpatient (REF) | payer SELFPAY ==
--- OUTSIDE RECORDS SUMMARY | 2025-10-04 04:40 | XMS RPT_ITS | CCD ---
Author Organization [facility] Care Team Providers Care Advanced Manufacturing Engineer Name Role Phone YARITZA, GALE A Unavailable [...] [phone] Tab Dupont Primary Care Provider [phone] Otis Mejia MD Unavailable Ying DO, Giuliano Unavailable [phone] Blanco DO, Faisal Unavailable BERNA JOHNSON Referring [...] Dr. Ambrosio Ayala Primary Care Provider [phone] Tab Joshi Attending Provider Unavailab Tab Benson Referring Provider Unavailab syed Costello MD, Dr. Villa Attending Provider Dr. Daisy Garay MD Referring Provider Unava misbah Monroy DO, Dr. Ambrosio Ayala Primary Care Provider [phone] Tab Joshi Attending Provider Unavailab Tab Benson Referring Provider Unavailab Dr. Daisy Li MD Attending Provider Dr. Daisy Garay MD Referring Provider Penny De La Cruz MD Unavailable [phone] Gayle Scott MD Unavailable Ambrosio Monroy MD Unavailable Eliana BAUGH, Dr. Ambrosio Ayala Primary Care Provider [phone] Tab Joshi Attending Provider Unavailab KRISTINE Foster [...] [employer] Unavailable SAVAGE CASTILLO Attending Unavailable KIAH PETER Primary Care Unavailable YOANA SOLITARIO Attending Unavailable SARASAROS PETER Primary Care Unavailable Estersyed BAUGH, Dr. Ambrosio Ayala Primary Care Physician [phone] Tab Joshi Attending Physician Unavaila Tab Case [...] Joshi Referring Unavailable Tab Joshi Attending Unavailable Medications Current [...] Inject 825 mg intravenously q 24 [place]. [address] mg 0 01/24/2022 02/25/2022 Active Comment on [...] docusate sodium 50 mg / sennosides, senior living 8.6 mg oral tablet (20 sources) Start: [...] Start: 06-18-2017 take 1 capsule by mo [facility] once daily DULoxetine (CYMBALTA) 60 MG [...] 01/24/2022 Active take 1 capsule by mo [facility] twice daily gabapentin (NEURONTIN) 300 MG capsule Take 300 mg by mouth 2 times daily 0 Active Comment on above: Take 1 capsule by mo [facility] every 12 hours for 30 days. [...] Comment on above: Take 1 tablet by [facility] four times daily as needed. sulfamethoxazole [...] on above: Take 1 capsule by mo [facility] once daily. therapeutic multivitamin-minera ls (THERA-M PLUS) 9 mg iron-400 mcg tablet (3 sources) therapeutic multivitamin-document examiner als (THERA-M PLUS) 9 mg iron-400 [...] MEALS Quantity: 20 Refills: 0 Ordered: 05-Oct-2015 Lauyrn Concepcion MD Start : 05-Oct-2015 Active ampicillin-sulbacta m (Unasyn) 3,000 mg in sodium chloride 0.9 % 100 mL IVPB (Add-[place]) (2 sources) Start: 04-26-2025 End: 04-29-2025 take 3000 mg intravenously every six hours 3,000 mg, IntraVENous, at 200 mL/hr, Administer over 30 Minutes, Every 6 hours, First dose on Thu25 at 1230, ADD-[place] bag, Suspected Indication (Select all that apply): [...] reflux disease take 2 tablets by mo [facility] every eight hours as needed for [...] Comment on above: Take 1 capsule by [facility] twice daily. 0.4 ml enoxaparin sodium 100 [...] for gram positive cocci polyethylene glycol 3350 25425 mg powder for oral solution (20 sources) [...] Comment on above: Take 1 Packet by [facility] once daily as needed. 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 BUN/creatinine ratioOrdered By: Tab Dupont on 07-31-2025 Urea nitrogen/Creatinine [Mass ratio] 19.8 mg/mg 07-24 [facility] Basic Metabolic Profile (BMP )on 07-31-2025 BUN/CRE 19.8 RATIO Normal 07-24 [facility] Comment on above: Order Comment: 301.2 Performed By: #### L 101.9900, L100.0500, L500.4050, L501.6710 #### [facility] [address] [place], [address] Calcium [Mass/Vol] 8.6 mg/dL Normal 7.6-11.0 [facility] Comment on above: Order Comment: 301.2 Performed By: #### L 101.9900, L100.0500, L500.4050, L501.6710 #### [facility] [address] [place], [address] Chloride [Moles/Vol] 105 mmol/L Normal 98-108 [facility] Comment on above: Order Comment: 301.2 Performed By: #### L 101.9900, L100.0500, L500.4050, L501.6710 #### [facility] [address] [place], [address] CO2 [Moles/Vol] 21.9 mmol/L Normal 21.0-32.0 [facility] Comment on above: Order Comment: 301.2 Performed By: #### L 101.9900, L100.0500, L500.4050, L501.6710 #### [facility] [address] [place], [address] Creatinine [Mass/Vol] 0.49 mg/dL Low 0.70-1.20 [facility] Comment on above: Order Comment: 301.2 Performed By: #### L 101.9900, L100.0500, L500.4050, L501.6710 #### [facility] [address] [place], [address] GAP 8 Normal 5-15 [facility] Comment on above: Order Comment: 301.2 Performed By: #### L 101.9900, L100.0500, L500.4050, L501.6710 #### [facility] [address] [place], [address] GFR/1.73 sq M.predicted among non-blacks MDRD (S/P/Bld) [Vol rate/Area] 116 mL/min/{1.73_m2} Normal >60 [facility] Comment on above: Order Comment: 301.2 Result Comment: mL/m in/1.73m2 CKD-EPI Creatinine Equation (2020) Performed By: #### L 101.9900, L100.0500, L500.4050, L501.6710 #### [facility] [address] [place], [address] Glucose [Mass/Vol] 189 mg/dL High 70-99 [facility] Comment on above: Order Comment: 301.2 Performed By: #### L 101.9900, L100.0500, L500.4050, L501.6710 #### [facility] [address] [place], [address] Potassium [Moles/Vol] 4.1 mmol/L Normal 3.3-5.1 [facility] Comment on above: Order Comment: 301.2 Performed By: #### L 101.9900, L100.0500, L500.4050, L501.6710 #### [facility] [address] [place], [address] Sodium [Moles/Vol] 135 mmol/L Normal 133-145 [facility] Comment on above: Order Comment: 301.2 Performed By: #### L 101.9900, L100.0500, L500.4050, L501.6710 #### [facility] [address] [place], [address] Urea nitrogen [Mass/Vol] 10 mg/dL Normal 4-19 [facility] Comment on above: Order Comment: 301.2 Performed By: #### L 101.9900, L100.0500, L500.4050, L501.6710 #### [facility] [address] [place], [address] CBC-Complete Blood Cnt No Di ffon 07-31-2025 Erythrocyte distribution width (RBC) [Ratio] 15.3 % High 11.6-14.6 [facility] Comment on above: Order Comment: 301.2 Performed By: #### L 101.9900, L100.0500, L500.4050, L501.6710 #### [facility] [address] [place], [address] Hematocrit (Bld) [Volume fraction] 38.0 % Low 40-54 [facility] Comment on above: Order Comment: 301.2 Performed By: #### L 101.9900, L100.0500, L500.4050, L501.6710 #### [facility] [address] [place], [address] Hemoglobin (Bld) [Mass/Vol] 12.5 g/dL Low 13.0-16.5 [facility] Comment on above: Order Comment: 301.2 Performed By: #### L 101.9900, L100.0500, L500.4050, L501.6710 #### [facility] [address] [place], [address] MCH (RBC) [Entitic mass] 29.6 pg Normal 27.0-32.0 [facility] Comment on above: Order Comment: 301.2 Performed By: #### L 101.9900, L100.0500, L500.4050, L501.6710 #### [facility] [address] [place], [address] MCHC (RBC) [Mass/Vol] 32.9 g/dL Normal 32-36 [facility] Comment on above: Order Comment: 301.2 Performed By: #### L 101.9900, L100.0500, L500.4050, L501.6710 #### [facility] [address] [place], [address] MCV (RBC) [Entitic vol] 90.0 fL Normal 80-94 [facility] Comment on above: Order Comment: 301.2 Performed By: #### L 101.9900, L100.0500, L500.4050, L501.6710 #### [facility] [address] [place], [address] Platelet mean volume (Bld) [Entitic vol] 10.6 fL Normal 6.2-12.0 [facility] Comment on above: Order Comment: 301.2 Performed By: #### L 101.9900, L100.0500, L500.4050, L501.6710 #### [facility] [address] [place], [address] Platelets (Bld) [#/Vol] 224 10*3/uL Normal 150-450 [facility] Comment on above: Order Comment: 301.2 Performed By: #### L 101.9900, L100.0500, L500.4050, L501.6710 #### [facility] [address] [place], [address] RBC (Bld) [#/Vol] 4.22 10*6/uL Low 4.6-6.2 [facility] Comment on above: Order Comment: 301.2 Performed By: #### L 101.9900, L100.0500, L500.4050, L501.6710 #### [facility] [address] [place], [address] RDW SD 50.7 fl High 35.1-43.9 [facility] Comment on above: Order Comment: 301.2 Performed By: #### L 101.9900, L100.0500, L500.4050, L501.6710 #### [facility] [address] [place], [address] WBC (Bld) [#/Vol] 6.3 10*3/uL Normal 4.4-11.0 [facility] Comment on above: Order Comment: 301.2 Performed By: #### L 101.9900, L100.0500, L500.4050, L501.6710 #### [facility] [address] [place], [address] Carbon dioxide, total [Moles /volume] in Central venous bloodOrdered By: Tab Dupont on 07-31-2025 CO2 [Moles/Vol] 21.9 mmol/L 21.0-32.0 [facility] Chloride assayOrdered By: Vinh Lehman on 07-31-2025 Chloride [Moles/Vol] 105 mmol/L 98-108 [facility] Erythrocyte distribution wid th ratioOrdered By: Tab Dupont on 07-31-2025 Erythrocyte distribution width (RBC) [Ratio] 15.3 % High 11.6-14.6 [facility] Erythrocyte distribution wid th standard deviationOrdered By: Tab Dupont on 07-31-2025 Erythrocyte distribution width (RBC) [Ratio] 50.7 fl High 35.1-43.9 [facility] Glomerular filtration rate ( GFR) estimation/1.73 sq m using serum, plasma, or whole bOrdered By: Tab Dupont on 07-31-2025 GFR/1.73 sq M.predicted among non-blacks MDRD (S/P/Bld) [Vol rate/Area] 116 mL/min/{1.73_m2} >60 [facility] Comment on above: mL/min/1.73m2 CKD-EP I Creatinine Equation (2020) Hematocrit Auto (Bld) [Volum e fraction]Ordered By: Tab Dupont on 07-31-2025 Hematocrit (Bld) [Volume fraction] 38.0 % Low 40-54 [facility] Hemoglobin measurementOrdere d By: Tab Dupont on 07-31-2025 Hemoglobin (Bld) [Mass/Vol] 12.5 g/dL Low 13.0-16.5 [facility] MCV (mean corpuscular volume ) determinationOrdered By: Tab Dupont on 07-31-2025 MCV (RBC) [Entitic vol] 90.0 fL 80-94 [facility] Mean corpuscular hemoglobin (MCH) determinationOrdered By: Tab Dupont on 07-31-2025 MCH (RBC) [Entitic mass] 29.6 pg 27.0-32.0 [facility] Mean corpuscular hemoglobin concentration (MCHC) determinationOrdered By: Tab Dupont on 07-31-2025 MCHC (RBC) [Mass/Vol] 32.9 g/dL 32-36 [facility] Mean platelet volume determi nationOrdered By: Tab Dupont on 07-31-2025 Platelet mean volume (Bld) [Entitic vol] 10.6 fL 6.2-12.0 [facility] Platelet countOrdered By: Vinh Lehman on 07-31-2025 Platelets (Bld) [#/Vol] 224 10*3/uL 150-450 [facility] Potassium measurement (mass/ volume)Ordered By: Tab Dupont on 07-31-2025 Potassium (Unsp spec) [Mass/Vol] 4.1 mmol/L 3.3-5.1 [facility] RBC Auto (Bld) [#/Vol]Ordere d By: Tab Dupont on 07-31-2025 RBC (Bld) [#/Vol] 4.22 10*6/uL Low 4.6-6.2 [facility] Serum creatinine measurement (mass/volume)Ordered By: Tab Dupont on 07-31-2025 Creatinine [Mass/Vol] 0.49 mg/dL Low 0.70-1.20 [facility] Serum glucose measurement (m ass/volume)Ordered By: Tab Dupont on 07-31-2025 Glucose [Mass/Vol] 189 mg/dL High 70-99 [facility] Serum or plasma calcium randall urement (mass/volume)Ordered By: Tab Dupont on 07-31-2025 Calcium [Mass/Vol] 8.6 mg/dL 7.6-11.0 [facility] Serum or plasma urea nitroge n measurement (mass/volume)Ordered By: Tab Dupont on 07-31-2025 Urea nitrogen [Mass/Vol] 10 mg/dL 01-21 [facility] Sodium levelOrdered By: Omar Dupont on 07-31-2025 Sodium [Moles/Vol] 135 mmol/L 133-145 [facility] White blood cell (WBC) count Ordered By: Tab Dupont on 07-31-2025 WBC (Bld) [#/Vol] 6.3 10*3/uL 4.4-11.0 [facility] Basic Metabolic Profile (BMP )on 07-27-2025 BUN Normal 01-21 [facility] Comment on above: Order Comment: 301.2 Result Comment: UTO X1 Performed By: #### L 101.9900, L100.0500, L500.4050, L501.6710 #### [facility] [address] [place], [address] BUN/CRE Normal 07-24 [facility] Comment on above: Order Comment: 301.2 Result Comment: UTO X1 Performed By: #### L 101.9900, L100.0500, L500.4050, L501.6710 #### [facility] [address] [place], [address] Calcium Normal 7.6-11.0 [facility] Comment on above: Order Comment: 301.2 Result Comment: UTO X1 Performed By: #### L 101.9900, L100.0500, L500.4050, L501.6710 #### [facility] [address] [place], [address] CL Normal 98-108 [facility] Comment on above: Order Comment: 301.2 Result Comment: UTO X1 Performed By: #### L 101.9900, L100.0500, L500.4050, L501.6710 #### [facility] [address] [place], [address] CO2 Normal 21.0-32.0 [facility] Comment on above: Order Comment: 301.2 Result Comment: UTO X1 Performed By: #### L 101.9900, L100.0500, L500.4050, L501.6710 #### [facility] [address] [place], [address] CREAT,SERUM Normal 0.70-1.20 [facility] Comment on above: Order Comment: 301.2 Result Comment: UTO X1 Performed By: #### L 101.9900, L100.0500, L500.4050, L501.6710 #### [facility] [address] [place], [address] eGFR Normal >60 [facility] Comment on above: Order Comment: 301.2 Result Comment: UTO X1 Performed By: #### L 101.9900, L100.0500, L500.4050, L501.6710 #### [facility] [address] [place], [address] GAP Normal 5-15 [facility] Comment on above: Order Comment: 301.2 Result Comment: UTO X1 Performed By: #### L 101.9900, L100.0500, L500.4050, L501.6710 #### [facility] [address] [place], [address] GLU Normal 70-99 [facility] Comment on above: Order Comment: 301.2 Result Comment: UTO X1 Performed By: #### L 101.9900, L100.0500, L500.4050, L501.6710 #### [facility] [address] [place], [address] Potassium Normal 3.3-5.1 [facility] Comment on above: Order Comment: 301.2 Result Comment: UTO X1 Performed By: #### L 101.9900, L100.0500, L500.4050, L501.6710 #### [facility] [address] [place], [address] Basic Metabolic Profile (BMP) Normal 133-145 [facility] Comment on above: Order Comment: 301.2 Result Comment: UTO X1 Performed By: #### L 101.9900, L100.0500, L500.4050, L501.6710 #### [facility] [address] [place], [address] CBC-Complete Blood Cnt No Di ffon 07-27-2025 HCT Normal 40-54 [facility] Comment on above: Order Comment: 301.2 Result Comment: UTO X1 Performed By: #### L 101.9900, L100.0500, L500.4050, L501.6710 #### [facility] [address] [place], [address] HGB Normal 13.0-16.5 [facility] Comment on above: Order Comment: 301.2 Result Comment: UTO X1 Performed By: #### L 101.9900, L100.0500, L500.4050, L501.6710 #### [facility] [address] [place], [address] MCH Normal 27.0-32.0 [facility] Comment on above: Order Comment: 301.2 Result Comment: UTO X1 Performed By: #### L 101.9900, L100.0500, L500.4050, L501.6710 #### [facility] [address] [place], [address] MCHC Normal 32-36 [facility] Comment on above: Order Comment: 301.2 Result Comment: UTO X1 Performed By: #### L 101.9900, L100.0500, L500.4050, L501.6710 #### [facility] [address] [place], [address] MCV Normal 80-94 [facility] Comment on above: Order Comment: 301.2 Result Comment: UTO X1 Performed By: #### L 101.9900, L100.0500, L500.4050, L501.6710 #### [facility] [address] [place], [address] PLT Normal 150-450 [facility] Comment on above: Order Comment: 301.2 Result Comment: UTO X1 Performed By: #### L 101.9900, L100.0500, L500.4050, L501.6710 #### [facility] [address] [place], [address] RBC Normal 4.6-6.2 [facility] Comment on above: Order Comment: 301.2 Result Comment: UTO X1 Performed By: #### L 101.9900, L100.0500, L500.4050, L501.6710 #### [facility] [address] [place], [address] RDW CV Normal 11.6-14.6 [facility] Comment on above: Order Comment: 301.2 Result Comment: UTO X1 Performed By: #### L 101.9900, L100.0500, L500.4050, L501.6710 #### [facility] [address] [place], [address] RDW SD Normal 35.1-43.9 [facility] Comment on above: Order Comment: 301.2 Result Comment: UTO X1 Performed By: #### L 101.9900, L100.0500, L500.4050, L501.6710 #### [facility] [address] [place], [address] WBC Normal 4.4-11.0 [facility] Comment on above: Order Comment: 301.2 Result Comment: UTO X1 Performed By: #### L 101.9900, L100.0500, L500.4050, L501.6710 #### [facility] [address] [place], [address] Urine Cultureon 07-20-2025 [facility] Urine Culture Urine Culture Morganella morganii sp sibonii [place] Count 80,000-100,000 Morganella morganii sp sibonii: REACTION Ampicillin Islt HARINDER >=32 Ampicillin+Sulbac Islt HARINDER <=2 S Ciprofloxacin Islt HARINDER 2 R Gentamicin Islt HARINDER >=16 R levoFLOXacin Islt HARINDER 2 R Meropenem Islt HARINDER <=0.25 S Nitrofurantoin Islt HARINDER R Pip+Tazo Islt HARINDER <=4 S TMP SMX Islt HARINDER <=20 S Normal [facility] Comment on above: Performed By: #### L 101.9900, L100.0500, L500.4050, L501.6710 #### [facility] [address] [place], [address] Urinalysis, Completeon 07-18 BACTERIA RARE Normal None Seen [facility] Comment on above: Order Comment: 301.2 Performed By: #### L 101.9900, L100.0500, L500.4050, L501.6710 #### [facility] [address] [place], [address] RBC 0-5 SEEN Normal 0-5 [facility] Comment on above: Order Comment: 301.2 Performed By: #### L 101.9900, L100.0500, L500.4050, L501.6710 #### [facility] [address] [place], [address] WBC 5-10 SEEN Normal 0-5 [facility] Comment on above: Order Comment: 301.2 Performed By: #### L 101.9900, L100.0500, L500.4050, L501.6710 #### [facility] [address] [place], [address] EPI,SQUAMOUS 0 SEEN Normal 0-5 [facility] Comment on above: Order Comment: 301.2 Performed By: #### L 101.9900, L100.0500, L500.4050, L501.6710 #### [facility] [address] [place], [address] Mucus Ql (Urine sed) 0 SEEN Normal [facility] Comment on above: Order Comment: 301.2 Performed By: #### L 101.9900, L100.0500, L500.4050, L501.6710 #### [facility] [address] [place], [address] Bilirubin Test strip Ql (U)O rdered By: Tab Dupont on 07-17-2025 Bilirubin Ql (U) Negative Negative [facility] Ketones Test strip Ql (U)Ord ered By: Tab Dupont on 07-17-2025 Ketones Ql (U) Negative Negative [facility] Microscopic analysis of urin e for red blood cells (RBC)Ordered By: Tab Dupont on 07-17-2025 Microscopic analysis of urine for red blood cells (RBC) 0-5 SEEN /hpf 0-5 [facility] Mucus LM Ql (Urine sed)Order ed By: Tab Dupont on 07-17-2025 Mucus Ql (Urine sed) 0 SEEN /hpf [facility] Nitrite Test strip Ql (U)Ord ered By: Tab Dupont on 07-17-2025 Nitrite Ql (U) Negative Negative [facility] Protein Test strip Ql (U)Ord ered By: Tab Dupont on 07-17-2025 Protein Ql (U) 30 mg/dl High Negative [facility] Squamous epithelial cells de tection in urine sediment by light microscopyOrdered By: Tab Dupont on 07-17-2025 Epithelial cells.squamous LM Ql (Urine sed) 0 SEEN /hpf 0-5 [facility] Urine clarityOrdered By: Pet er Kiah on 07-17-2025 Clarity (U) Sl Cloudy Clear [facility] Urine color determinationOrd ered By: Tab Dupont on 07-17-2025 Color (U) Yellow Yellow [facility] Urine cultureOrdered By: Pet er Kiah on 07-17-2025 Bacteria identified Cx Nom (U) Morganella morganii sp sibonii Abnormal [facility] Urine glucose detectionOrder ed By: Tab Dupont on 07-17-2025 Glucose Ql (U) Normal mg/dl Normal [facility] Urine leukocyte esterase det ection by dipstickOrdered By: Tab Dupont on 07-17-2025 Leukocyte esterase Test strip Ql (U) 500 /ul High Negative [facility] Urine pHOrdered By: Tab cordova on 07-17-2025 pH (U) 7.0 [pH] 5.0 - 8.0 [facility] Urine sediment bacteria coun t by microscopy (number/high power field)Ordered By: Tab Dupont on 07-17-2025 Bacteria LM.HPF (Urine sed) [#/Area] RARE /hpf None Seen [facility] Urine specific gravity measu rementOrdered By: Tab Dupont on 07-17-2025 Specific gravity (U) [Rel density] 1.010 1.002-1.030 [facility] Urine urobilinogen measureme ntOrdered By: Tab Dupont on 07-17-2025 Urobilinogen Ql (U) Normal mg/dl Normal [facility] White blood cell countOrdere d By: Tab Dupont on 07-17-2025 White blood cell count 5-10 SEEN /hpf 0-5 [facility] 36on 06-02-2025 36 Pt seen in [...] line only on IV tubing. Called facility [facility] [place] and spoke to nurse Valerie [...] the IV tubing. She stated understanding. Normal [facility] Office Visiton 06-02-2025 Follow-up visit [id number] Anmol Reynolds 1960 M Date Provider Department Center 06/02/2025 [id number] [place] [facility] [place] [facility] [place] None No family history on file Level of Service:75598 ND OFFICE/OUTPATIENT ESTABLISHED MOD MDM 30 MIN Reason for Visit and Comments: Follow-up [104027] - EOT/MRSA, Lt ischaial osteo Normal [facility] Progress Noteon 06-02-2025 Progress Note [facility] INF[facility] DIS [address] [facility] [id number] Post-Discharge Hospital Follow [...] Surgery duration necessary. Recommend follow up with [facility] Surgery- Dr. Kaela Durand who [...] raffinosus and MRSA. Patient dishcarged back to [facility] with IV Vancomycin and Unasyn per [...] to 06/06. Still on Wound VAC at [facility]. Overall doing better. I have performed [...] , R (more content not included)... Normal [facility] Anion gap in Serum or Plasma Ordered By: Tab Dupont on 05-29-2025 Anion gap [Moles/Vol] 12 mmol/L 5-15 [facility] BUN/creatinine ratioOrdered By: Tab Dupont on 05-29-2025 Urea nitrogen/Creatinine [Mass ratio] 16.4 mg/mg 10- [facility] Bilirubin, totalOrdered By: Tab Dupont on 05-29-2025 Bilirubin [Mass/Vol] 0.26 mg/dL 0.00-1.30 [facility] CBC-Complete Blood Cnt No Di ffon 05-29-2025 Erythrocyte distribution width (RBC) [Ratio] 15.7 % High 11.6-14.6 [facility] Comment on above: Order Comment: 301.2 0000 Performed By: #### L 501.6710, L101.9900, L501.8820 #### [facility] [address] [place], [address] Hematocrit (Bld) [Volume fraction] 36.8 % Low 40-54 [facility] Comment on above: Order Comment: 301.2 0000 Performed By: #### L 501.6710, L101.9900, L501.8820 #### [facility] [address] [place], [address] Hemoglobin (Bld) [Mass/Vol] 12.1 g/dL Low 13.0-16.5 [facility] Comment on above: Order Comment: 301.2 0000 Performed By: #### L 501.6710, L101.9900, [id number] #### [facility] [address] [place], [address] MCH (RBC) [Entitic mass] 30.0 pg Normal 27.0-32.0 [facility] Comment on above: Order Comment: 301.2 0000 Performed By: #### L 501.6710, L101.9900, [id number] #### [facility] [address] [place], [address] MCHC (RBC) [Mass/Vol] 32.9 g/dL Normal 32-36 [facility] Comment on above: Order Comment: 301.2 0000 Performed By: #### L 501.6710, L101.9900, [id number] #### [facility] [address] [place], [address] MCV (RBC) [Entitic vol] 91.1 fL Normal 80-94 [facility] Comment on above: Order Comment: 301.2 0000 Performed By: #### L 501.6710, L101.9900, [id number] #### [facility] [address] [place], [address] Platelet mean volume (Bld) [Entitic vol] 10.6 fL Normal 6.2-12.0 [facility] Comment on above: Order Comment: 301.2 0000 Performed By: #### L 501.6710, L101.9900, [id number] #### [facility] [address] [place], [address] Platelets (Bld) [#/Vol] 243 10*3/uL Normal 150-450 [facility] Comment on above: Order Comment: 301.2 0000 Performed By: #### L 501.6710, L101.9900, [id number] #### [facility] [address] [place], [address] RBC (Bld) [#/Vol] 4.04 10*6/uL Low 4.6-6.2 [facility] Comment on above: Order Comment: 301.2 0000 Performed By: #### L 501.6710, L101.9900, [id number] #### [facility] [address] [place], [address] RDW SD 52.5 fl High 35.1-43.9 [facility] Comment on above: Order Comment: 301.2 0000 Performed By: #### L 501.6710, L101.9900, [id number] #### [facility] [address] [place], [address] WBC (Bld) [#/Vol] 6.9 10*3/uL Normal 4.4-11.0 [facility] Comment on above: Order Comment: 301.2 0000 Performed By: #### L 501.6710, L101.9900, [id number] #### [facility] [address] [place], [address] CRPon 05-29-2025 C-REACTIVE PROT 20.40 mg/L High 0.0-3.0 [facility] Comment on above: Order Comment: 301.2 0000 Performed By: #### L 501.6710, L101.9900, [id number] #### [facility] [address] [place], [address] Carbon dioxide, total [Moles /volume] in Central venous bloodOrdered By: Tab Dupont on 05-29-2025 CO2 [Moles/Vol] 20.8 mmol/L Low 21.0-32.0 [facility] Chloride assayOrdered By: Vinh Lehman on 05-29-2025 Chloride [Moles/Vol] 107 mmol/L 98-108 [facility] Comprehensive Metabolic Prof ilon 05-29-2025 Albumin [Mass/Vol] 3.2 g/dL Low 3.4-4.8 [facility] Comment on above: Order Comment: 301.2 0000 Performed By: #### L 501.6710, L101.9900, [id number] #### [facility] [address] [place], [address] Albumin/Globulin [Mass ratio] 0.9 {ratio} Normal 0.9-2.4 [facility] Comment on above: Order Comment: 301.2 0000 Performed By: #### L 501.6710, L101.9900, [id number] #### [facility] [address] [place], [address] ALK PHOS 113 U/L Normal 40-129 [facility] Comment on above: Order Comment: 301.2 0000 Performed By: #### L 501.6710, L101.9900, [id number] #### [facility] [address] [place], [address] ALT [Catalytic activity/Vol] 14 U/L Normal <=46 [facility] Comment on above: Order Comment: 301.2 0000 Performed By: #### L 501.6710, L101.9900, [id number] #### [facility] [address] [place], [address] AST [Catalytic activity/Vol] 18 U/L Normal <=37 [facility] Comment on above: Order Comment: 301.2 0000 Performed By: #### L 501.6710, L101.9900, [id number] #### [facility] [address] [place], [address] Bilirubin [Mass/Vol] 0.26 mg/dL Normal 0.00-1.30 [facility] Comment on above: Order Comment: 301.2 0000 Performed By: #### L 501.6710, L101.9900, [id number] #### [facility] [address] [place], [address] BUN/CRE 16.4 RATIO Normal 10-20 [facility] Comment on above: Order Comment: 301.2 0000 Performed By: #### L 501.6710, L101.9900, [id number] #### [facility] [address] [place], [address] Calcium [Mass/Vol] 8.9 mg/dL Normal 7.6-11.0 [facility] Comment on above: Order Comment: 301.2 0000 Performed By: #### L 501.6710, L101.9900, [id number] #### [facility] [address] [place], [address] Chloride [Moles/Vol] 107 mmol/L Normal 98-108 [facility] Comment on above: Order Comment: 301.2 0000 Performed By: #### L 501.6710, L101.9900, [id number] #### [facility] [address] [place], [address] CO2 [Moles/Vol] 20.8 mmol/L Low 21.0-32.0 [facility] Comment on above: Order Comment: 301.2 0000 Performed By: #### L 501.6710, L101.9900, [id number] #### [facility] [address] [place], [address] Creatinine [Mass/Vol] 0.45 mg/dL Low 0.70-1.20 [facility] Comment on above: Order Comment: 301.2 0000 Performed By: #### L 501.6710, L101.9900, [id number] #### [facility] [address] [place], [address] GAP 12 Normal 5-15 [facility] Comment on above: Order Comment: 301.2 0000 Performed By: #### L 501.6710, L101.9900, [id number] #### [facility] [address] [place], [address] GFR/1.73 sq M.predicted among non-blacks MDRD (S/P/Bld) [Vol rate/Area] 119 mL/min/{1.73_m2} Normal >60 [facility] Comment on above: Order Comment: 301.2 0000 Result Comment: mL/m in/1.73m2 CKD-EPI Creatinine Equation (2020) Performed By: #### L 501.6710, L101.9900, [id number] #### [facility] [address] [place], [address] Globulin (S) [Mass/Vol] 3.6 g/dL Normal 2.2-4.2 [facility] Comment on above: Order Comment: 301.2 0000 Performed By: #### L 501.6710, L101.9900, [id number] #### [facility] [address] [place], [address] Glucose [Mass/Vol] 91 mg/dL Normal 70-99 [facility] Comment on above: Order Comment: 301.2 0000 Performed By: #### L 501.6710, L101.9900, [id number] #### [facility] [address] [place], [address] Potassium [Moles/Vol] 3.6 mmol/L Normal 3.3-5.1 [facility] Comment on above: Order Comment: 301.2 0000 Performed By: #### L 501.6710, L101.9900, [id number] #### [facility] [address] [place], [address] Sodium [Moles/Vol] 140 mmol/L Normal 133-145 [facility] Comment on above: Order Comment: 301.2 0000 Performed By: #### L 501.6710, L101.9900, [id number] #### [facility] [address] [place], [address] T PROT 6.8 g/dL Normal 5.9-8.4 [facility] Comment on above: Order Comment: 301.2 0000 Performed By: #### L 501.6710, L101.9900, [id number] #### [facility] [address] [place], [address] Urea nitrogen [Mass/Vol] 7 mg/dL Normal 4-19 [facility] Comment on above: Order Comment: 301.2 0000 Performed By: #### L 501.6710, L101.9900, [id number] #### [facility] [address] [place], [address] Erythrocyte distribution wid th ratioOrdered By: Tab Dupont on 05-29-2025 Erythrocyte distribution width (RBC) [Ratio] 15.7 % High 11.6-14.6 [facility] Erythrocyte distribution wid th standard deviationOrdered By: Tab Dupont on 05-29-2025 Erythrocyte distribution width (RBC) [Ratio] 52.5 fl High 35.1-43.9 [facility] Glomerular filtration rate ( GFR) estimation/1.73 sq m using serum, plasma, or whole bOrdered By: Tab Dupont on 05-29-2025 GFR/1.73 sq M.predicted among non-blacks MDRD (S/P/Bld) [Vol rate/Area] 119 mL/min/{1.73_m2} >60 [facility] Comment on above: mL/min/1.73m2 CKD-EP I Creatinine Equation (2020) Hematocrit Auto (Bld) [Volum e fraction]Ordered By: Tab Dupont on 05-29-2025 Hematocrit (Bld) [Volume fraction] 36.8 % Low 40-54 [facility] Hemoglobin measurementOrdere d By: Tab Dupont on 05-29-2025 Hemoglobin (Bld) [Mass/Vol] 12.1 g/dL Low 13.0-16.5 [facility] - Chemistry and C hemistry - challengeOrdered By: Tab Dupont on 05-29-2025 AST [Catalytic activity/Vol] 18 U/L <38 [facility] MCV (mean corpuscular volume ) determinationOrdered By: Tab Dupont on 05-29-2025 MCV (RBC) [Entitic vol] 91.1 fL 80-94 [facility] Mean corpuscular hemoglobin (MCH) determinationOrdered By: Tab Dupont on 05-29-2025 MCH (RBC) [Entitic mass] 30.0 pg 27.0-32.0 [facility] Mean corpuscular hemoglobin concentration (MCHC) determinationOrdered By: Tab Dupont on 05-29-2025 MCHC (RBC) [Mass/Vol] 32.9 g/dL 32-36 [facility] Mean platelet volume determi nationOrdered By: Tab Dupont on 05-29-2025 Platelet mean volume (Bld) [Entitic vol] 10.6 fL 6.2-12.0 [facility] Platelet countOrdered By: Vinh Lehman on 05-29-2025 Platelets (Bld) [#/Vol] 243 10*3/uL 150-450 [facility] Potassium measurement (mass/ volume)Ordered By: Tab Dupont on 05-29-2025 Potassium (Unsp spec) [Mass/Vol] 3.6 mmol/L 3.3-5.1 [facility] RBC Auto (Bld) [#/Vol]Ordere d By: Tab Dupont on 05-29-2025 RBC (Bld) [#/Vol] 4.04 10*6/uL Low 4.6-6.2 [facility] Serum creatinine measurement (mass/volume)Ordered By: Tab Dupont on 05-29-2025 Creatinine [Mass/Vol] 0.45 mg/dL Low 0.70-1.20 [facility] Serum globulin measurementOr dered By: Tab Dupont on 05-29-2025 Globulin (S) [Mass/Vol] 3.6 g/dL 2.2-4.2 [facility] Serum glucose measurement (m ass/volume)Ordered By: Tab Dupont on 05-29-2025 Glucose [Mass/Vol] 91 mg/dL 70-99 [facility] Serum or plasma C reactive p rotein measurement (mass/volume)Ordered By: Tab Dupont on 05-29-2025 CRP [Mass/Vol] 20.40 mg/L High 0.0-3.0 [facility] Serum or plasma alanine miller otransferase (ALT) measurementOrdered By: Tab Dupont on 05-29-2025 ALT [Catalytic activity/Vol] 14 U/L <47 [facility] Serum or plasma albumin randall urement (mass/volume)Ordered By: Tab Dupont on 05-29-2025 Albumin [Mass/Vol] 3.2 g/dL Low 3.4-4.8 [facility] Serum or plasma albumin/glob ulin mass ratioOrdered By: Tab Dupont on 05-29-2025 Albumin/Globulin [Mass ratio] 0.9 {ratio} 0.9-2.4 [facility] Serum or plasma alkaline nallely sphatase measurementOrdered By: Tab Dupont on 05-29-2025 ALP [Catalytic activity/Vol] 113 U/L 40-129 [facility] Serum or plasma calcium randall urement (mass/volume)Ordered By: Tab Dupont on 05-29-2025 Calcium [Mass/Vol] 8.9 mg/dL 7.6-11.0 [facility] Serum or plasma urea nitroge n measurement (mass/volume)Ordered By: Tab Dupont on 05-29-2025 Urea nitrogen [Mass/Vol] 7 mg/dL 4-19 [facility] Sodium levelOrdered By: Omar Dupont on 05-29-2025 Sodium [Moles/Vol] 140 mmol/L 133-145 [facility] Total proteinOrdered By: Regino Dupont on 05-29-2025 Protein [Mass/Vol] 6.8 g/dL 5.9-8.4 [facility] Trough vancomycin levelOrder ed By: Tab Dupont on 05-29-2025 Vancomycin trough [Mass/Vol] 18.5 ug/mL High 5.0-15.0 [facility] Comment on above: Recommended goal tro [...] therapy recommended for serious lifethreatening infections include:- Cdmxgpguva-Rlmtmkjpbfco-Ozdlijiga (Ventilator/Healtcare Associated)-Sepsis PLEASE CONTACT PHARMACY SERVICES (#[id number]) FOR INTERPRETATIONOF RESULTS. Vancomycin, Trough Levelon 0 05-29-2025 VANCO, TROUGH 18.5 ug/mL High 5.0-15.0 [facility] Comment on above: Order Comment: [...] (Ventilator/Healtcare Associated) -Sepsis PLEASE CONTACT PHARMACY SERVICES (#[id number]) FOR INTERPRETATION OF RESULTS. Performed By: #### L 501.6710, L101.9900, L501.8820 #### [facility] [address] [place], [place], [address] White blood cell (WBC) count Ordered By: Tab Dupont on 05-29-2025 WBC (Bld) [#/Vol] 6.9 10*3/uL 4.4-11.0 [facility] 36on 05-25-2025 36 Received a call from nurse Nikki [phone] stating Vanc tr this week is 17 and asking if IV Vanc can be hung. Told her yes, hang Vanc as trough is within therapeutic range. Per Nikki, they will obtain another Vanc level on 05/29. Normal [facility] CRPon 05-25-2025 C-REACTIVE PROT 48.60 mg/L High 0.0-3.0 [facility] Comment on above: Order Comment: 301.2 Performed By: #### L 501.6710, L101.9900, L501.8820 #### [facility] [address] [place], [place], [address] Erythrocyte Sed Rateon 05-25 SED RATE 57 mm/hr High 0-20 [facility] Comment on above: Order Comment: 301.2 Performed By: #### L 501.6710, L101.9900, L501.8820 #### [facility] [place], [address] Erythrocyte sedimentation ra teOrdered By: Tab Dupont on 05-25-2025 ESR (Bld) [Velocity] 57 mm/h High 0-20 [facility] Serum or plasma C reactive p rotein measurement (mass/volume)Ordered By: Tab Dupont on 05-25-2025 CRP [Mass/Vol] 48.60 mg/L High 0.0-3.0 [facility] Trough vancomycin levelOrder ed By: Tab Dupont on 05-25-2025 Vancomycin trough [Mass/Vol] 17.3 ug/mL High 5.0-15.0 [facility] Comment on above: Recommended goal tro ugh ranges are generally 10-15 mcg/ml for less severe/complicated infections such as cellulitis or UTI and 15-20 mcg/ml for more severe/complicated infections such as bacteremia/sepsis, osteomyelitis, pneumonia or meningitis. Goal trough ranges should take into account indication, patient-specific factors and organism HAIRNDER.VANCOMYCIN STANDARED DRUG THERAPY TROUGH LEVEL: 5.0 - 15.0 mg/L VANCOMYCIN HIGH INTENSITY THERAPY TROUGH LEVEL: 15.0 - 20.0 mg/L High Intensity therapy recommended for serious lifethreatening infections include:- Yeufayaert-Teyrqewalyih-Ndehsquch (Ventilator/Healtcare Associated)-Sepsis PLEASE CONTACT PHARMACY SERVICES (#[id number]) FOR INTERPRETATIONOF RESULTS. Vancomycin, Trough Levelon 05-25-2025 VANCO, TROUGH 17.3 ug/mL High 5.0-15.0 [facility] Comment on above: Order Comment: [...] (Ventilator/Healtcare Associated) -Sepsis PLEASE CONTACT PHARMACY SERVICES (#[id number]) FOR INTERPRETATION OF RESULTS. Performed By: #### L 501.6710, L101.9900, L501.8820 #### [facility] [address] [place], [place], [address] 36on 05-24-2025 36 Received a call from Clement nurse at [facility]. She stated the labs that were [...] until this weeks labs are received. Normal [facility] Anion gap in Serum or Plasma Ordered By: Tab Dupont on 05-22-2025 Anion gap [Moles/Vol] 12 mmol/L 5-15 [facility] BUN/creatinine ratioOrdered By: Tab Dupont on 05-22-2025 Urea nitrogen/Creatinine [Mass ratio] 15.9 mg/mg - [facility] Bilirubin, totalOrdered By: Tab Dupont on 05-22-2025 Bilirubin [Mass/Vol] 0.31 mg/dL 0.00-1.30 [facility] CBC-Complete Blood Cnt No Di ffon 05-22-2025 Erythrocyte distribution width (RBC) [Ratio] 16.3 % High 11.6-14.6 [facility] Comment on above: Order Comment: 301.2 Performed By: #### L 101.9900, L100.0500, L500.4050, L501.6710 #### [facility] [address] [place], [place], [address] Hematocrit (Bld) [Volume fraction] 38.6 % Low 40-54 [facility] Comment on above: Order Comment: 301.2 Performed By: #### L 101.9900, L100.0500, L500.4050, L501.6710 #### [facility] [address] [place], [address] Hemoglobin (Bld) [Mass/Vol] 12.2 g/dL Low 13.0-16.5 [facility] Comment on above: Order Comment: 301.2 Performed By: #### L 101.9900, L100.0500, L500.4050, L501.6710 #### [facility] [address] [place], [address] MCH (RBC) [Entitic mass] 29.1 pg Normal 27.0-32.0 [facility] Comment on above: Order Comment: 301.2 Performed By: #### L 101.9900, L100.0500, L500.4050, L501.6710 #### [facility] [address] [place], [address] MCHC (RBC) [Mass/Vol] 31.6 g/dL Low 32-36 [facility] Comment on above: Order Comment: 301.2 Performed By: #### L 101.9900, L100.0500, L500.4050, L501.6710 #### [facility] [address] [place], [address] MCV (RBC) [Entitic vol] 92.1 fL Normal 80-94 [facility] Comment on above: Order Comment: 301.2 Performed By: #### L 101.9900, L100.0500, L500.4050, L501.6710 #### [facility] [address] [place], [address] Platelet mean volume (Bld) [Entitic vol] 11.1 fL Normal 6.2-12.0 [facility] Comment on above: Order Comment: 301.2 Performed By: #### L 101.9900, L100.0500, L500.4050, L501.6710 #### [facility] [address] [place], [address] Platelets (Bld) [#/Vol] 226 10*3/uL Normal 150-450 [facility] Comment on above: Order Comment: 301.2 Performed By: #### L 101.9900, L100.0500, L500.4050, L501.6710 #### [facility] [address] [place], [address] RBC (Bld) [#/Vol] 4.19 10*6/uL Low 4.6-6.2 [facility] Comment on above: Order Comment: 301.2 Performed By: #### L 101.9900, L100.0500, L500.4050, L501.6710 #### [facility] [address] [place], [address] RDW SD 55.2 fl High 35.1-43.9 [facility] Comment on above: Order Comment: 301.2 Performed By: #### L 101.9900, L100.0500, L500.4050, L501.6710 #### [facility] [address] [place], [address] WBC (Bld) [#/Vol] 7.5 10*3/uL Normal 4.4-11.0 [facility] Comment on above: Order Comment: 301.2 Performed By: #### L 101.9900, L100.0500, L500.4050, L501.6710 #### [facility] [address] [place], [address] Carbon dioxide, total [Moles /volume] in Central venous bloodOrdered By: Tab Dupont on 05-22-2025 CO2 [Moles/Vol] 20.9 mmol/L Low 21.0-32.0 [facility] Chloride assayOrdered By: Vinh Lehman on 05-22-2025 Chloride [Moles/Vol] 106 mmol/L 98-108 [facility] Comprehensive Metabolic Prof ilon 05-22-2025 Albumin [Mass/Vol] 3.1 g/dL Low 3.4-4.8 [facility] Comment on above: Order Comment: 301.2 Performed By: #### L 101.9900, L100.0500, L500.4050, L501.6710 #### [facility] [address] [place], [address] Albumin/Globulin [Mass ratio] 0.9 {ratio} Normal 0.9-2.4 [facility] Comment on above: Order Comment: 301.2 Performed By: #### L 101.9900, L100.0500, L500.4050, L501.6710 #### [facility] [address] [place], [address] ALK PHOS 124 U/L Normal 40-129 [facility] Comment on above: Order Comment: 301.2 Performed By: #### L 101.9900, L100.0500, L500.4050, L501.6710 #### [facility] [address] [place], [address] ALT [Catalytic activity/Vol] 15 U/L Normal <=46 [facility] Comment on above: Order Comment: 301.2 Performed By: #### L 101.9900, L100.0500, L500.4050, L501.6710 #### [facility] [address] [place], [address] AST [Catalytic activity/Vol] 17 U/L Normal <=37 [facility] Comment on above: Order Comment: 301.2 Performed By: #### L 101.9900, L100.0500, L500.4050, L501.6710 #### [facility] [address] [place], [address] Bilirubin [Mass/Vol] 0.31 mg/dL Normal 0.00-1.30 [facility] Comment on above: Order Comment: 301.2 Performed By: #### L 101.9900, L100.0500, L500.4050, L501.6710 #### [facility] [address] [place], [address] BUN/CRE 15.9 RATIO Normal 10-20 [facility] Comment on above: Order Comment: 301.2 Performed By: #### L 101.9900, L100.0500, L500.4050, L501.6710 #### [facility] [address] [place], [address] Calcium [Mass/Vol] 8.7 mg/dL Normal 7.6-11.0 [facility] Comment on above: Order Comment: 301.2 Performed By: #### L 101.9900, L100.0500, L500.4050, L501.6710 #### [facility] [address] [place], [address] Chloride [Moles/Vol] 106 mmol/L Normal 98-108 [facility] Comment on above: Order Comment: 301.2 Performed By: #### L 101.9900, L100.0500, L500.4050, L501.6710 #### [facility] [address] [place], [address] CO2 [Moles/Vol] 20.9 mmol/L Low 21.0-32.0 [facility] Comment on above: Order Comment: 301.2 Performed By: #### L 101.9900, L100.0500, L500.4050, L501.6710 #### [facility] [address] [place], [address] Creatinine [Mass/Vol] 0.50 mg/dL Low 0.70-1.20 [facility] Comment on above: Order Comment: 301.2 Performed By: #### L 101.9900, L100.0500, L500.4050, L501.6710 #### [facility] [address] [place], [address] GAP 12 Normal 5-15 [facility] Comment on above: Order Comment: 301.2 Performed By: #### L 101.9900, L100.0500, L500.4050, L501.6710 #### [facility] [address] [place], [address] GFR/1.73 sq M.predicted among non-blacks MDRD (S/P/Bld) [Vol rate/Area] 114 mL/min/{1.73_m2} Normal >60 [facility] Comment on above: Order Comment: 301.2 Result Comment: mL/m in/1.73m2 CKD-EPI Creatinine Equation (2020) Performed By: #### L 101.9900, L100.0500, L500.4050, L501.6710 #### [facility] [address] [place], [address] Globulin (S) [Mass/Vol] 3.6 g/dL Normal 2.2-4.2 [facility] Comment on above: Order Comment: 301.2 Performed By: #### L 101.9900, L100.0500, L500.4050, L501.6710 #### [facility] [address] [place], [address] Glucose [Mass/Vol] 109 mg/dL High 70-99 [facility] Comment on above: Order Comment: 301.2 Performed By: #### L 101.9900, L100.0500, L500.4050, L501.6710 #### [facility] [address] [place], [address] Potassium [Moles/Vol] 3.8 mmol/L Normal 3.3-5.1 [facility] Comment on above: Order Comment: 301.2 Performed By: #### L 101.9900, L100.0500, L500.4050, L501.6710 #### [facility] [address] [place], [address] Sodium [Moles/Vol] 139 mmol/L Normal 133-145 [facility] Comment on above: Order Comment: 301.2 Performed By: #### L 101.9900, L100.0500, L500.4050, L501.6710 #### [facility] [address] [place], [address] T PROT 6.7 g/dL Normal 5.9-8.4 [facility] Comment on above: Order Comment: 301.2 Performed By: #### L 101.9900, L100.0500, L500.4050, L501.6710 #### [facility] [address] [place], [address] Urea nitrogen [Mass/Vol] 8 mg/dL Normal 4-19 [facility] Comment on above: Order Comment: 301.2 Performed By: #### L 101.9900, L100.0500, L500.4050, L501.6710 #### [facility] [address] [place], [address] Erythrocyte distribution wid th ratioOrdered By: Tab Dupont on 05-22-2025 Erythrocyte distribution width (RBC) [Ratio] 16.3 % High 11.6-14.6 [facility] Erythrocyte distribution wid th standard deviationOrdered By: Tab Dupont on 05-22-2025 Erythrocyte distribution width (RBC) [Ratio] 55.2 fl High 35.1-43.9 [facility] Glomerular filtration rate ( GFR) estimation/1.73 sq m using serum, plasma, or whole bOrdered By: Tab Dupont on 05-22-2025 GFR/1.73 sq M.predicted among non-blacks MDRD (S/P/Bld) [Vol rate/Area] 114 mL/min/{1.73_m2} >60 [facility] Comment on above: mL/min/1.73m2 CKD-EP I Creatinine Equation (2020) Hematocrit Auto (Bld) [Volum e fraction]Ordered By: Tab Dupont on 05-22-2025 Hematocrit (Bld) [Volume fraction] 38.6 % Low 40-54 [facility] Hemoglobin measurementOrdere d By: Tab Dupont on 05-22-2025 Hemoglobin (Bld) [Mass/Vol] 12.2 g/dL Low 13.0-16.5 [facility] - Chemistry and C hemistry - challengeOrdered By: Tab Dupont on 05-22-2025 AST [Catalytic activity/Vol] 17 U/L <38 [facility] MCV (mean corpuscular volume ) determinationOrdered By: Tab Dupont on 05-22-2025 MCV (RBC) [Entitic vol] 92.1 fL 80-94 [facility] Mean corpuscular hemoglobin (MCH) determinationOrdered By: Tab Dupont on 05-22-2025 MCH (RBC) [Entitic mass] 29.1 pg 27.0-32.0 [facility] Mean corpuscular hemoglobin concentration (MCHC) determinationOrdered By: Tab Dupont on 05-22-2025 MCHC (RBC) [Mass/Vol] 31.6 g/dL Low 32-36 [facility] Mean platelet volume determi nationOrdered By: Tab Dupont on 05-22-2025 Platelet mean volume (Bld) [Entitic vol] 11.1 fL 6.2-12.0 [facility] Platelet countOrdered By: Vihn Lehman on 05-22-2025 Platelets (Bld) [#/Vol] 226 10*3/uL 150-450 [facility] Potassium measurement (mass/ volume)Ordered By: Tab Dupont on 05-22-2025 Potassium (Unsp spec) [Mass/Vol] 3.8 mmol/L 3.3-5.1 [facility] RBC Auto (Bld) [#/Vol]Ordere d By: Tab Dupont on 05-22-2025 RBC (Bld) [#/Vol] 4.19 10*6/uL Low 4.6-6.2 [facility] Serum creatinine measurement (mass/volume)Ordered By: Tab Dupont on 05-22-2025 Creatinine [Mass/Vol] 0.50 mg/dL Low 0.70-1.20 [facility] Serum globulin measurementOr dered By: Tab Dupont on 05-22-2025 Globulin (S) [Mass/Vol] 3.6 g/dL 2.2-4.2 [facility] Serum glucose measurement (m ass/volume)Ordered By: Tab Dupont on 05-22-2025 Glucose [Mass/Vol] 109 mg/dL High 70-99 [facility] Serum or plasma alanine miller otransferase (ALT) measurementOrdered By: Tab Dupont on 05-22-2025 ALT [Catalytic activity/Vol] 15 U/L <47 [facility] Serum or plasma albumin randall urement (mass/volume)Ordered By: Tab Dupont on 05-22-2025 Albumin [Mass/Vol] 3.1 g/dL Low 3.4-4.8 [facility] Serum or plasma albumin/glob ulin mass ratioOrdered By: Tab Dupont on 05-22-2025 Albumin/Globulin [Mass ratio] 0.9 {ratio} 0.9-2.4 [facility] Serum or plasma alkaline nallely sphatase measurementOrdered By: Tab Dupont on 05-22-2025 ALP [Catalytic activity/Vol] 124 U/L 40-129 [facility] Serum or plasma calcium randall urement (mass/volume)Ordered By: Tab Dupont on 05-22-2025 Calcium [Mass/Vol] 8.7 mg/dL 7.6-11.0 [facility] Serum or plasma urea nitroge n measurement (mass/volume)Ordered By: Tab Dupont on 05-22-2025 Urea nitrogen [Mass/Vol] 8 mg/dL 4-19 [facility] Sodium levelOrdered By: Omar Dupont on 05-22-2025 Sodium [Moles/Vol] 139 mmol/L 133-145 [facility] Total proteinOrdered By: Regino Dupont on 05-22-2025 Protein [Mass/Vol] 6.7 g/dL 5.9-8.4 [facility] White blood cell (WBC) count Ordered By: Tab Dupont on 05-22-2025 WBC (Bld) [#/Vol] 7.5 10*3/uL 4.4-11.0 [facility] Anion gap in Serum or Plasma Ordered By: Tab Dupont on 05-15-2025 Anion gap [Moles/Vol] 12 mmol/L 5-15 [facility] BUN/creatinine ratioOrdered By: Tab Dupont on 05-15-2025 Urea nitrogen/Creatinine [Mass ratio] 17.5 mg/mg 10-20 [facility] Bilirubin, totalOrdered By: Tab Dupont on 05-15-2025 Bilirubin [Mass/Vol] 0.43 mg/dL 0.00-1.30 [facility] CBC-Complete Blood Cnt No Di ffon 05-15-2025 Erythrocyte distribution width (RBC) [Ratio] 16.4 % High 11.6-14.6 [facility] Comment on above: Order Comment: 301.2 0000 Performed By: #### L 501.6710, L101.9900, L501.8820 #### [facility] [address] [place], [address] Hematocrit (Bld) [Volume fraction] 39.5 % Low 40-54 [facility] Comment on above: Order Comment: 301.2 0000 Performed By: #### L 501.6710, L101.9900, [id number] #### [facility] [address] [place], [address] Hemoglobin (Bld) [Mass/Vol] 12.6 g/dL Low 13.0-16.5 [facility] Comment on above: Order Comment: 301.2 0000 Performed By: #### L 501.6710, L101.9900, [id number] #### [facility] [address] [place], [address] MCH (RBC) [Entitic mass] 29.3 pg Normal 27.0-32.0 [facility] Comment on above: Order Comment: 301.2 0000 Performed By: #### L 501.6710, L101.9900, [id number] #### [facility] [address] [place], [address] MCHC (RBC) [Mass/Vol] 31.9 g/dL Low 32-36 [facility] Comment on above: Order Comment: 301.2 0000 Performed By: #### L 501.6710, L101.9900, [id number] #### [facility] [address] [place], [address] MCV (RBC) [Entitic vol] 91.9 fL Normal 80-94 [facility] Comment on above: Order Comment: 301.2 0000 Performed By: #### L 501.6710, L101.9900, [id number] #### [facility] [address] [place], [address] Platelet mean volume (Bld) [Entitic vol] 10.2 fL Normal 6.2-12.0 [facility] Comment on above: Order Comment: 301.2 0000 Performed By: #### L 501.6710, L101.9900, [id number] #### [facility] [address] [place], [address] Platelets (Bld) [#/Vol] 201 10*3/uL Normal 150-450 [facility] Comment on above: Order Comment: 301.2 0000 Performed By: #### L 501.6710, L101.9900, [id number] #### [facility] [address] [place], [address] RBC (Bld) [#/Vol] 4.30 10*6/uL Low 4.6-6.2 [facility] Comment on above: Order Comment: 301.2 0000 Performed By: #### L 501.6710, L101.9900, [id number] #### [facility] [address] [place], [address] RDW SD 54.9 fl High 35.1-43.9 [facility] Comment on above: Order Comment: 301.2 0000 Performed By: #### L 501.6710, L101.9900, [id number] #### [facility] [address] [place], [address] WBC (Bld) [#/Vol] 5.5 10*3/uL Normal 4.4-11.0 [facility] Comment on above: Order Comment: 301.2 0000 Performed By: #### L 501.6710, L101.9900, [id number] #### [facility] [address] [place], [address] Carbon dioxide, total [Moles /volume] in Central venous bloodOrdered By: Tab Dupont on 05-15-2025 CO2 [Moles/Vol] 21.6 mmol/L 21.0-32.0 [facility] Chloride assayOrdered By: Vinh Lehman on 05-15-2025 Chloride [Moles/Vol] 106 mmol/L 98-108 [facility] Comprehensive Metabolic Prof ilon 05-15-2025 Albumin [Mass/Vol] 3.4 g/dL Normal 3.4-4.8 [facility] Comment on above: Order Comment: 301.2 0000 Performed By: #### L 501.6710, L101.9900, [id number] #### [facility] [address] [place], [address] Albumin/Globulin [Mass ratio] 0.9 {ratio} Normal 0.9-2.4 [facility] Comment on above: Order Comment: 301.2 0000 Performed By: #### L 501.6710, L101.9900, [id number] #### [facility] [address] [place], [address] ALK PHOS 133 U/L High 40-129 [facility] Comment on above: Order Comment: 301.2 0000 Performed By: #### L 501.6710, L101.9900, [id number] #### [facility] [address] [place], [address] ALT [Catalytic activity/Vol] 20 U/L Normal <=46 [facility] Comment on above: Order Comment: 301.2 0000 Performed By: #### L 501.6710, L101.9900, [id number] #### [facility] [address] [place], [address] AST [Catalytic activity/Vol] 28 U/L Normal <=37 [facility] Comment on above: Order Comment: 301.2 0000 Performed By: #### L 501.6710, L101.9900, [id number] #### [facility] [address] [place], [address] Bilirubin [Mass/Vol] 0.43 mg/dL Normal 0.00-1.30 [facility] Comment on above: Order Comment: 301.2 0000 Performed By: #### L 501.6710, L101.9900, [id number] #### [facility] [address] [place], [address] BUN/CRE 17.5 RATIO Normal 10-20 [facility] Comment on above: Order Comment: 301.2 0000 Performed By: #### L 501.6710, L101.9900, [id number] #### [facility] [address] [place], [address] Calcium [Mass/Vol] 8.9 mg/dL Normal 7.6-11.0 [facility] Comment on above: Order Comment: 301.2 0000 Performed By: #### L 501.6710, L101.9900, [id number] #### [facility] [address] [place], [address] Chloride [Moles/Vol] 106 mmol/L Normal 98-108 [facility] Comment on above: Order Comment: 301.2 0000 Performed By: #### L 501.6710, L101.9900, [id number] #### [facility] [address] [place], [address] CO2 [Moles/Vol] 21.6 mmol/L Normal 21.0-32.0 [facility] Comment on above: Order Comment: 301.2 0000 Performed By: #### L 501.6710, L101.9900, [id number] #### [facility] [address] [place], [address] Creatinine [Mass/Vol] 0.52 mg/dL Low 0.70-1.20 [facility] Comment on above: Order Comment: 301.2 0000 Performed By: #### L 501.6710, L101.9900, [id number] #### [facility] [address] [place], [address] GAP 12 Normal 5-15 [facility] Comment on above: Order Comment: 301.2 0000 Performed By: #### L 501.6710, L101.9900, [id number] #### [facility] [address] [place], [address] GFR/1.73 sq M.predicted among non-blacks MDRD (S/P/Bld) [Vol rate/Area] 113 mL/min/{1.73_m2} Normal >60 [facility] Comment on above: Order Comment: 301.2 0000 Result Comment: mL/m in/1.73m2 CKD-EPI Creatinine Equation (2020) Performed By: #### L 501.6710, L101.9900, [id number] #### [facility] [address] [place], [address] Globulin (S) [Mass/Vol] 3.6 g/dL Normal 2.2-4.2 [facility] Comment on above: Order Comment: 301.2 0000 Performed By: #### L 501.6710, L101.9900, [id number] #### [facility] [address] [place], [address] Glucose [Mass/Vol] 76 mg/dL Normal 70-99 [facility] Comment on above: Order Comment: 301.2 0000 Performed By: #### L 501.6710, L101.9900, [id number] #### [facility] [address] [place], [address] Potassium [Moles/Vol] 3.6 mmol/L Normal 3.3-5.1 [facility] Comment on above: Order Comment: 301.2 0000 Performed By: #### L 501.6710, L101.9900, [id number] #### [facility] [address] [place], [address] Sodium [Moles/Vol] 139 mmol/L Normal 133-145 [facility] Comment on above: Order Comment: 301.2 0000 Performed By: #### L 501.6710, L101.9900, [id number] #### [facility] [address] [place], [address] T PROT 7.0 g/dL Normal 5.9-8.4 [facility] Comment on above: Order Comment: 301.2 0000 Performed By: #### L 501.6710, L101.9900, [id number] #### [facility] [address] [place], [address] Urea nitrogen [Mass/Vol] 9 mg/dL Normal 4-19 [facility] Comment on above: Order Comment: 301.2 0000 Performed By: #### L 501.6710, L101.9900, [id number] #### [facility] [address] [place], [address] Erythrocyte distribution wid th ratioOrdered By: Tab Dupont on 05-15-2025 Erythrocyte distribution width (RBC) [Ratio] 16.4 % High 11.6-14.6 [facility] Erythrocyte distribution wid th standard deviationOrdered By: Tab Dupont on 05-15-2025 Erythrocyte distribution width (RBC) [Ratio] 54.9 fl High 35.1-43.9 [facility] Glomerular filtration rate ( GFR) estimation/1.73 sq m using serum, plasma, or whole bOrdered By: Tab Dupont on 05-15-2025 GFR/1.73 sq M.predicted among non-blacks MDRD (S/P/Bld) [Vol rate/Area] 113 mL/min/{1.73_m2} >60 [facility] Comment on above: mL/min/1.73m2 CKD-EP I Creatinine Equation (2020) Hematocrit Auto (Bld) [Volum e fraction]Ordered By: Tab Dupont on 05-15-2025 Hematocrit (Bld) [Volume fraction] 39.5 % Low 40-54 [facility] Hemoglobin measurementOrdere d By: Tab Dupont on 05-15-2025 Hemoglobin (Bld) [Mass/Vol] 12.6 g/dL Low 13.0-16.5 [facility] - Chemistry and C hemistry - challengeOrdered By: Tab Dupont on 05-15-2025 AST [Catalytic activity/Vol] 28 U/L <38 [facility] MCV (mean corpuscular volume ) determinationOrdered By: Tab Dupont on 05-15-2025 MCV (RBC) [Entitic vol] 91.9 fL 80-94 [facility] Mean corpuscular hemoglobin (MCH) determinationOrdered By: Tab Dupont on 05-15-2025 MCH (RBC) [Entitic mass] 29.3 pg 27.0-32.0 [facility] Mean corpuscular hemoglobin concentration (MCHC) determinationOrdered By: Tab Dupont on 05-15-2025 MCHC (RBC) [Mass/Vol] 31.9 g/dL Low 32-36 [facility] Mean platelet volume determi nationOrdered By: Tab Dupont on 05-15-2025 Platelet mean volume (Bld) [Entitic vol] 10.2 fL 6.2-12.0 [facility] Platelet countOrdered By: Vinh Lehman on 05-15-2025 Platelets (Bld) [#/Vol] 201 10*3/uL 150-450 [facility] Potassium measurement (mass/ volume)Ordered By: Tab Dupont on 05-15-2025 Potassium (Unsp spec) [Mass/Vol] 3.6 mmol/L 3.3-5.1 [facility] RBC Auto (Bld) [#/Vol]Ordere d By: Tab Dupont on 05-15-2025 RBC (Bld) [#/Vol] 4.30 10*6/uL Low 4.6-6.2 [facility] Serum creatinine measurement (mass/volume)Ordered By: Tab Dupont on 05-15-2025 Creatinine [Mass/Vol] 0.52 mg/dL Low 0.70-1.20 [facility] Serum globulin measurementOr dered By: Tab Dupont on 05-15-2025 Globulin (S) [Mass/Vol] 3.6 g/dL 2.2-4.2 [facility] Serum glucose measurement (m ass/volume)Ordered By: Tab Dupont on 05-15-2025 Glucose [Mass/Vol] 76 mg/dL 70-99 [facility] Serum or plasma alanine miller otransferase (ALT) measurementOrdered By: Tab Dupont on 05-15-2025 ALT [Catalytic activity/Vol] 20 U/L <47 [facility] Serum or plasma albumin randall urement (mass/volume)Ordered By: Tab Dupont on 05-15-2025 Albumin [Mass/Vol] 3.4 g/dL 3.4-4.8 [facility] Serum or plasma albumin/glob ulin mass ratioOrdered By: Tab Dupont on 05-15-2025 Albumin/Globulin [Mass ratio] 0.9 {ratio} 0.9-2.4 [facility] Serum or plasma alkaline nallely sphatase measurementOrdered By: Tab Dupont on 05-15-2025 ALP [Catalytic activity/Vol] 133 U/L High 40-129 [facility] Serum or plasma calcium randall urement (mass/volume)Ordered By: Tab Dupont on 05-15-2025 Calcium [Mass/Vol] 8.9 mg/dL 7.6-11.0 [facility] Serum or plasma urea nitroge n measurement (mass/volume)Ordered By: Tab Dupont on 05-15-2025 Urea nitrogen [Mass/Vol] 9 mg/dL 4-19 [facility] Sodium levelOrdered By: Omar Dupont on 05-15-2025 Sodium [Moles/Vol] 139 mmol/L 133-145 [facility] Total proteinOrdered By: Regino Dupont on 05-15-2025 Protein [Mass/Vol] 7.0 g/dL 5.9-8.4 [facility] Trough vancomycin levelOrder ed By: Tab Dupont on 05-15-2025 Vancomycin trough [Mass/Vol] 17.6 ug/mL High 5.0-15.0 [facility] Comment on above: Recommended goal tro [...] therapy recommended for serious lifethreatening infections include:- Ubocdyqjnb-Nhiwogwbwckh-Srwvwlvhv (Ventilator/Healtcare Associated)-Sepsis PLEASE CONTACT PHARMACY SERVICES (#[id number]) FOR INTERPRETATIONOF RESULTS. Vancomycin, Trough Levelon 0 05-15-2025 VANCO, TROUGH 17.6 ug/mL High 5.0-15.0 [facility] Comment on above: Order Comment: [...] (Ventilator/Healtcare Associated) -Sepsis PLEASE CONTACT PHARMACY SERVICES (#[id number]) FOR INTERPRETATION OF RESULTS. Performed By: #### L 501.6710, L101.9900, L501.8820 #### [facility] [address] [place], [address] White blood cell (WBC) count Ordered By: Tab Dupont on 05-15-2025 WBC (Bld) [#/Vol] 5.5 10*3/uL 4.4-11.0 [facility] 36on 05-12-[address] Castillo, Please see labs received today. Patients sed rate is 64. Down from 78 on 04/21/25. C-reactive protein is 32.80. Please let us know if there is any changes to orders. Thank you. [facility] Trough vancomycin levelOrder ed By: Tab Dupont on 05-11-2025 Vancomycin trough [Mass/Vol] 16.8 ug/mL High 5.0-15.0 [facility] Comment on above: Recommended goal tro [...] therapy recommended for serious lifethreatening infections include:- Nivpcptorf-Nciwcpegqonn-Hwgjduotj (Ventilator/Healtcare Associated)-Sepsis PLEASE CONTACT PHARMACY SERVICES (#[id number]) FOR INTERPRETATIONOF RESULTS. Vancomycin, Trough Levelon 0 05-11-2025 VANCO, TROUGH 16.8 ug/mL High 5.0-15.0 [facility] Comment on above: Order Comment: [...] (Ventilator/Healtcare Associated) -Sepsis PLEASE CONTACT PHARMACY SERVICES (#[id number]) FOR INTERPRETATION OF RESULTS. Performed By: #### L 101.9900, L100.0500, L500.4050, L501.6710 #### [facility] [address] [place], [place], [address] 36on 05-10-2025 36 Received a call from Clement stoner at [facility]. She stated that she wanted to clarify how often labs are needed on patient. She stated that all labs except vanc trough were drawn yesterday. She will fax those results. The vanc trough will be drawn tomorrow and will will be faxed to office. Normal [facility] Anion gap in Serum or Plasma Ordered By: Tab Dupont on 05-09-2025 Anion gap [Moles/Vol] 12 mmol/L - [facility] BUN/creatinine ratioOrdered By: Tab Dupont on 05-09-2025 Urea nitrogen/Creatinine [Mass ratio] 12.7 mg/mg - [facility] Bilirubin, totalOrdered By: Tab Dupont on 05-09-2025 Bilirubin [Mass/Vol] 0.28 mg/dL 0.00-1.30 [facility] CBC-Complete Blood Cnt No Di ffon 05-09-2025 Erythrocyte distribution width (RBC) [Ratio] 15.9 % High 11.6-14.6 [facility] Comment on above: Order Comment: 301.2 Performed By: #### L 101.9900, L100.0500, L500.4050, L501.6710 #### [facility] [address] [place], [place], [id number] Hematocrit (Bld) [Volume fraction] 36.0 % Low 40-54 [facility] Comment on above: Order Comment: 301.2 Performed By: #### L 101.9900, L100.0500, L500.4050, L501.6710 #### [facility] [address] [place], [address] Hemoglobin (Bld) [Mass/Vol] 11.5 g/dL Low 13.0-16.5 [facility] Comment on above: Order Comment: 301.2 Performed By: #### L 101.9900, L100.0500, L500.4050, L501.6710 #### [facility] [address] [place], [address] MCH (RBC) [Entitic mass] 29.1 pg Normal 27.0-32.0 [facility] Comment on above: Order Comment: 301.2 Performed By: #### L 101.9900, L100.0500, L500.4050, L501.6710 #### [facility] [address] [place], [address] MCHC (RBC) [Mass/Vol] 31.9 g/dL Low 32-36 [facility] Comment on above: Order Comment: 301.2 Performed By: #### L 101.9900, L100.0500, L500.4050, L501.6710 #### [facility] [address] [place], [address] MCV (RBC) [Entitic vol] 91.1 fL Normal 80-94 [facility] Comment on above: Order Comment: 301.2 Performed By: #### L 101.9900, L100.0500, L500.4050, L501.6710 #### [facility] [address] [place], [address] Platelet mean volume (Bld) [Entitic vol] 10.3 fL Normal 6.2-12.0 [facility] Comment on above: Order Comment: 301.2 Performed By: #### L 101.9900, L100.0500, L500.4050, L501.6710 #### [facility] [address] [place], [address] Platelets (Bld) [#/Vol] 285 10*3/uL Normal 150-450 [facility] Comment on above: Order Comment: 301.2 Performed By: #### L 101.9900, L100.0500, L500.4050, L501.6710 #### [facility] [address] [place], [address] RBC (Bld) [#/Vol] 3.95 10*6/uL Low 4.6-6.2 [facility] Comment on above: Order Comment: 301.2 Performed By: #### L 101.9900, L100.0500, L500.4050, L501.6710 #### [facility] [address] [place], [address] RDW SD 53.3 fl High 35.1-43.9 [facility] Comment on above: Order Comment: 301.2 Performed By: #### L 101.9900, L100.0500, L500.4050, L501.6710 #### [facility] [address] [place], [address] WBC (Bld) [#/Vol] 5.7 10*3/uL Normal 4.4-11.0 [facility] Comment on above: Order Comment: 301.2 Performed By: #### L 101.9900, L100.0500, L500.4050, L501.6710 #### [facility] [address] [place], [address] CRPon 05-09-2025 C-REACTIVE PROT 32.80 mg/L High 0.0-3.0 [facility] Comment on above: Order Comment: 301.2 Performed By: #### L 101.9900, L100.0500, L500.4050, L501.6710 #### [facility] [address] [place], [address] Carbon dioxide, total [Moles /volume] in Central venous bloodOrdered By: Tab Dupont on 05-09-2025 CO2 [Moles/Vol] 19.7 mmol/L Low 21.0-32.0 [facility] Chloride assayOrdered By: Vinh Lehman on 05-09-2025 Chloride [Moles/Vol] 106 mmol/L 98-108 [facility] Comprehensive Metabolic Prof ilon 05-09-2025 Albumin [Mass/Vol] 3.1 g/dL Low 3.4-4.8 [facility] Comment on above: Order Comment: 301.2 Performed By: #### L 101.9900, L100.0500, L500.4050, L501.6710 #### [facility] [address] [place], [address] Albumin/Globulin [Mass ratio] 0.8 {ratio} Low 0.9-2.4 [facility] Comment on above: Order Comment: 301.2 Performed By: #### L 101.9900, L100.0500, L500.4050, L501.6710 #### [facility] [address] [place], [address] ALK PHOS 117 U/L Normal 40-129 [facility] Comment on above: Order Comment: 301.2 Performed By: #### L 101.9900, L100.0500, L500.4050, L501.6710 #### [facility] [address] [place], [address] ALT [Catalytic activity/Vol] 9 U/L Normal <=46 [facility] Comment on above: Order Comment: 301.2 Performed By: #### L 101.9900, L100.0500, L500.4050, L501.6710 #### [facility] [address] [place], [address] AST [Catalytic activity/Vol] 15 U/L Normal <=37 [facility] Comment on above: Order Comment: 301.2 Performed By: #### L 101.9900, L100.0500, L500.4050, L501.6710 #### [facility] [address] [place], [address] Bilirubin [Mass/Vol] 0.28 mg/dL Normal 0.00-1.30 [facility] Comment on above: Order Comment: 301.2 Performed By: #### L 101.9900, L100.0500, L500.4050, L501.6710 #### [facility] [address] [place], [address] BUN/CRE 12.7 RATIO Normal 10-20 [facility] Comment on above: Order Comment: 301.2 Performed By: #### L 101.9900, L100.0500, L500.4050, L501.6710 #### [facility] [address] [place], [address] Calcium [Mass/Vol] 8.8 mg/dL Normal 7.6-11.0 [facility] Comment on above: Order Comment: 301.2 Performed By: #### L 101.9900, L100.0500, L500.4050, L501.6710 #### [facility] [address] [place], [address] Chloride [Moles/Vol] 106 mmol/L Normal 98-108 [facility] Comment on above: Order Comment: 301.2 Performed By: #### L 101.9900, L100.0500, L500.4050, L501.6710 #### [facility] [address] [place], [address] CO2 [Moles/Vol] 19.7 mmol/L Low 21.0-32.0 [facility] Comment on above: Order Comment: 301.2 Performed By: #### L 101.9900, L100.0500, L500.4050, L501.6710 #### [facility] [address] [place], [address] Creatinine [Mass/Vol] 0.49 mg/dL Low 0.70-1.20 [facility] Comment on above: Order Comment: 301.2 Performed By: #### L 101.9900, L100.0500, L500.4050, L501.6710 #### [facility] [address] [place], [address] GAP 12 Normal 5-15 [facility] Comment on above: Order Comment: 301.2 Performed By: #### L 101.9900, L100.0500, L500.4050, L501.6710 #### [facility] [address] [place], [address] GFR/1.73 sq M.predicted among non-blacks MDRD (S/P/Bld) [Vol rate/Area] 116 mL/min/{1.73_m2} Normal >60 [facility] Comment on above: Order Comment: 301.2 Result Comment: mL/m in/1.73m2 CKD-EPI Creatinine Equation (2020) Performed By: #### L 101.9900, L100.0500, L500.4050, L501.6710 #### [facility] [address] [place], [address] Globulin (S) [Mass/Vol] 4.0 g/dL Normal 2.2-4.2 [facility] Comment on above: Order Comment: 301.2 Performed By: #### L 101.9900, L100.0500, L500.4050, L501.6710 #### [facility] [address] [place], [address] Glucose [Mass/Vol] 145 mg/dL High 70-99 [facility] Comment on above: Order Comment: 301.2 Performed By: #### L 101.9900, L100.0500, L500.4050, L501.6710 #### [facility] [address] [place], [address] Potassium [Moles/Vol] 3.5 mmol/L Normal 3.3-5.1 [facility] Comment on above: Order Comment: 301.2 Performed By: #### L 101.9900, L100.0500, L500.4050, L501.6710 #### [facility] [address] [place], [address] Sodium [Moles/Vol] 138 mmol/L Normal 133-145 [facility] Comment on above: Order Comment: 301.2 Performed By: #### L 101.9900, L100.0500, L500.4050, L501.6710 #### [facility] [address] [place], [address] T PROT 7.1 g/dL Normal 5.9-8.4 [facility] Comment on above: Order Comment: 301.2 Performed By: #### L 101.9900, L100.0500, L500.4050, L501.6710 #### [facility] [address] [place], [address] Urea nitrogen [Mass/Vol] 6 mg/dL Normal 4-19 [facility] Comment on above: Order Comment: 301.2 Performed By: #### L 101.9900, L100.0500, L500.4050, L501.6710 #### [facility] [address] [place], [address] Erythrocyte Sed Rateon 05-09 SED RATE 64 mm/hr High 0-20 [facility] Comment on above: Order Comment: 301.2 Performed By: #### L 101.9900, L100.0500, L500.4050, L501.6710 #### [facility] [address] [place], [address] Erythrocyte distribution wid th ratioOrdered By: Tab Dupont on 05-09-2025 Erythrocyte distribution width (RBC) [Ratio] 15.9 % High 11.6-14.6 [facility] Erythrocyte distribution wid th standard deviationOrdered By: Tab Dupont on 05-09-2025 Erythrocyte distribution width (RBC) [Ratio] 53.3 fl High 35.1-43.9 [facility] Erythrocyte sedimentation ra teOrdered By: Tab Dupont on 05-09-2025 ESR (Bld) [Velocity] 64 mm/h High 0-20 [facility] Glomerular filtration rate ( GFR) estimation/1.73 sq m using serum, plasma, or whole bOrdered By: Tab Dupont on 05-09-2025 GFR/1.73 sq M.predicted among non-blacks MDRD (S/P/Bld) [Vol rate/Area] 116 mL/min/{1.73_m2} >60 [facility] Comment on above: mL/min/1.73m2 CKD-EP I Creatinine Equation (2020) Hematocrit Auto (Bld) [Volum e fraction]Ordered By: Tab Dupont on 05-09-2025 Hematocrit (Bld) [Volume fraction] 36.0 % Low 40-54 [facility] Hemoglobin measurementOrdere d By: Tab Dupont on 05-09-2025 Hemoglobin (Bld) [Mass/Vol] 11.5 g/dL Low 13.0-16.5 [facility] - Chemistry and C hemistry - challengeOrdered By: Tab Dupont on 05-09-2025 AST [Catalytic activity/Vol] 15 U/L <38 [facility] MCV (mean corpuscular volume ) determinationOrdered By: Tab Dupont on 05-09-2025 MCV (RBC) [Entitic vol] 91.1 fL 80-94 [facility] Mean corpuscular hemoglobin (MCH) determinationOrdered By: Tab Dupont on 05-09-2025 MCH (RBC) [Entitic mass] 29.1 pg 27.0-32.0 [facility] Mean corpuscular hemoglobin concentration (MCHC) determinationOrdered By: Tab Dupont on 05-09-2025 MCHC (RBC) [Mass/Vol] 31.9 g/dL Low 32-36 [facility] Mean platelet volume determi nationOrdered By: Tab Dupont on 05-09-2025 Platelet mean volume (Bld) [Entitic vol] 10.3 fL 6.2-12.0 [facility] Platelet countOrdered By: Vinh Lehman on 05-09-2025 Platelets (Bld) [#/Vol] 285 10*3/uL 150-450 [facility] Potassium measurement (mass/ volume)Ordered By: Tab Dupont on 05-09-2025 Potassium (Unsp spec) [Mass/Vol] 3.5 mmol/L 3.3-5.1 [facility] RBC Auto (Bld) [#/Vol]Ordere d By: Tab Dupont on 05-09-2025 RBC (Bld) [#/Vol] 3.95 10*6/uL Low 4.6-6.2 [facility] Serum creatinine measurement (mass/volume)Ordered By: Tab Dupont on 05-09-2025 Creatinine [Mass/Vol] 0.49 mg/dL Low 0.70-1.20 [facility] Serum globulin measurementOr dered By: Tab Dupont on 05-09-2025 Globulin (S) [Mass/Vol] 4.0 g/dL 2.2-4.2 [facility] Serum glucose measurement (m ass/volume)Ordered By: Tab Dupont on 05-09-2025 Glucose [Mass/Vol] 145 mg/dL High 70-99 [facility] Serum or plasma C reactive p rotein measurement (mass/volume)Ordered By: Tab Dupont on 05-09-2025 CRP [Mass/Vol] 32.80 mg/L High 0.0-3.0 [facility] Serum or plasma alanine miller otransferase (ALT) measurementOrdered By: Tab Dupont on 05-09-2025 ALT [Catalytic activity/Vol] 9 U/L <47 [facility] Serum or plasma albumin randall urement (mass/volume)Ordered By: Tab Dupont on 05-09-2025 Albumin [Mass/Vol] 3.1 g/dL Low 3.4-4.8 [facility] Serum or plasma albumin/glob ulin mass ratioOrdered By: Tab Dupont on 05-09-2025 Albumin/Globulin [Mass ratio] 0.8 {ratio} Low 0.9-2.4 [facility] Serum or plasma alkaline nallely sphatase measurementOrdered By: Tab Dupont on 05-09-2025 ALP [Catalytic activity/Vol] 117 U/L 40-129 [facility] Serum or plasma calcium randall urement (mass/volume)Ordered By: Tab Dupont on 05-09-2025 Calcium [Mass/Vol] 8.8 mg/dL 7.6-11.0 [facility] Serum or plasma urea nitroge n measurement (mass/volume)Ordered By: Tab Dupont on 05-09-2025 Urea nitrogen [Mass/Vol] 6 mg/dL 4-19 [facility] Sodium levelOrdered By: Omar Dupont on 05-09-2025 Sodium [Moles/Vol] 138 mmol/L 133-145 [facility] Total proteinOrdered By: Regino Dupont on 05-09-2025 Protein [Mass/Vol] 7.1 g/dL 5.9-8.4 [facility] White blood cell (WBC) count Ordered By: Tab Dupont on 05-09-2025 WBC (Bld) [#/Vol] 5.7 10*3/uL 4.4-11.0 [facility] CBC-Complete Blood Cnt No Di ffon 05-08-2025 HCT Normal 40-54 [facility] Comment on above: Order Comment: 301.2 Result Comment: UTO X1 Performed By: #### L 101.9900, L100.0500, L500.4050, L501.6710 #### [facility] [address] [place], [place], [address] HGB Normal 13.0-16.5 [facility] Comment on above: Order Comment: 301.2 Result Comment: UTO X1 Performed By: #### L 101.9900, L100.0500, L500.4050, L501.6710 #### [facility] [address] [place], [address] MCH Normal 27.0-32.0 [facility] Comment on above: Order Comment: 301.2 Result Comment: UTO X1 Performed By: #### L 101.9900, L100.0500, L500.4050, L501.6710 #### [facility] [address] [place], [address] MCHC Normal 32-36 [facility] Comment on above: Order Comment: 301.2 Result Comment: UTO X1 Performed By: #### L 101.9900, L100.0500, L500.4050, L501.6710 #### [facility] [address] [place], [address] MCV Normal 80-94 [facility] Comment on above: Order Comment: 301.2 Result Comment: UTO X1 Performed By: #### L 101.9900, L100.0500, L500.4050, [id number] #### [facility] [address] [place], [address] PLT Normal 150-450 [facility] Comment on above: Order Comment: 301.2 Result Comment: UTO X1 Performed By: #### L 101.9900, L100.0500, L500.4050, [id number] #### [facility] [address] [place], [address] RBC Normal 4.6-6.2 [facility] Comment on above: Order Comment: 301.2 Result Comment: UTO X1 Performed By: #### L 101.9900, L100.0500, L500.4050, [id number] #### [facility] [address] [place], [address] RDW CV Normal 11.6-14.6 [facility] Comment on above: Order Comment: 301.2 Result Comment: UTO X1 Performed By: #### L 101.9900, L100.0500, L500.4050, L501.6710 #### [facility] [address] [place], [address] RDW SD Normal 35.1-43.9 [facility] Comment on above: Order Comment: 301.2 Result Comment: UTO X1 Performed By: #### L 101.9900, L100.0500, L500.4050, L501.6710 #### [facility] [address] [place], [address] WBC Normal 4.4-11.0 [facility] Comment on above: Order Comment: 301.2 Result Comment: UTO X1 Performed By: #### L 101.9900, L100.0500, L500.4050, L501.6710 #### [facility] [address] [place], [address] Comprehensive Metabolic Prof ilon 05-08-2025 ALB Normal 3.4-4.8 [facility] Comment on above: Order Comment: 301.2 Result Comment: UTO X1 Performed By: #### L 101.9900, L100.0500, L500.4050, L501.6710 #### [facility] [address] [place], [address] ALK PHOS Normal 40-129 [facility] Comment on above: Order Comment: 301.2 Result Comment: UTO X1 Performed By: #### L 101.9900, L100.0500, L500.4050, L501.6710 #### [facility] [address] [place], [address] ALT Normal <=46 [facility] Comment on above: Order Comment: 301.2 Result Comment: UTO X1 Performed By: #### L 101.9900, L100.0500, L500.4050, L501.6710 #### [facility] [address] [place], [address] AST Normal <=37 [facility] Comment on above: Order Comment: 301.2 Result Comment: UTO X1 Performed By: #### L 101.9900, L100.0500, L500.4050, L501.6710 #### [facility] [address] [place], [address] BUN Normal 4-19 [facility] Comment on above: Order Comment: 301.2 Result Comment: UTO X1 Performed By: #### L 101.9900, L100.0500, L500.4050, L501.6710 #### [facility] [address] [place], [address] BUN/CRE Normal 10-20 [facility] Comment on above: Order Comment: 301.2 Result Comment: UTO X1 Performed By: #### L 101.9900, L100.0500, L500.4050, L501.6710 #### [facility] [address] [place], [address] Calcium Normal 7.6-11.0 [facility] Comment on above: Order Comment: 301.2 Result Comment: UTO X1 Performed By: #### L 101.9900, L100.0500, L500.4050, L501.6710 #### [facility] [address] [place], [address] CL Normal 98-108 [facility] Comment on above: Order Comment: 301.2 Result Comment: UTO X1 Performed By: #### L 101.9900, L100.0500, L500.4050, L501.6710 #### [facility] [address] [place], [address] CO2 Normal 21.0-32.0 [facility] Comment on above: Order Comment: 301.2 Result Comment: UTO X1 Performed By: #### L 101.9900, L100.0500, L500.4050, L501.6710 #### [place] [facility] [address] [place], [address] CREAT,SERUM Normal 0.70-1.20 [facility] Comment on above: Order Comment: 301.2 Result Comment: UTO X1 Performed By: #### L 101.9900, L100.0500, L500.4050, L501.6710 #### [facility] [address] [place], [address] eGFR Normal >60 [facility] Comment on above: Order Comment: 301.2 Result Comment: UTO X1 Performed By: #### L 101.9900, L100.0500, L500.4050, L501.6710 #### [facility] [address] [place], [address] GAP Normal 5-15 [facility] Comment on above: Order Comment: 301.2 Result Comment: UTO X1 Performed By: #### L 101.9900, L100.0500, L500.4050, L501.6710 #### [facility] [address] [place], [address] GLU Normal 70-99 [facility] Comment on above: Order Comment: 301.2 Result Comment: UTO X1 Performed By: #### L 101.9900, L100.0500, L500.4050, L501.6710 #### [facility] [address] [place], [address] Potassium Normal 3.3-5.1 [facility] Comment on above: Order Comment: 301.2 Result Comment: UTO X1 Performed By: #### L 101.9900, L100.0500, L500.4050, L501.6710 #### [facility] [address] [place], [address] T BILI Normal 0.00-1.30 [facility] Comment on above: Order Comment: 301.2 Result Comment: UTO X1 Performed By: #### L 101.9900, L100.0500, L500.4050, L501.6710 #### [facility] [address] [place], [address] T PROT Normal 5.9-8.4 [facility] Comment on above: Order Comment: 301.2 Result Comment: UTO X1 Performed By: #### L 101.9900, L100.0500, L500.4050, L501.6710 #### [facility] [address] [place], [address] Comprehensive Metabolic Profil Normal 133-145 [facility] Comment on above: Order Comment: 301.2 Result Comment: UTO X1 Performed By: #### L 101.9900, L100.0500, L500.4050, L501.6710 #### [facility] [address] [place], [address] Erythrocyte Sed Rateon 05-08 SED RATE Normal 0-20 [facility] Comment on above: Order Comment: 301.2 Result Comment: UTO X1 Performed By: #### L 101.9900, L100.0500, L500.4050, L501.6710 #### [facility] [address] [place], [address] 36on 05-03-2025 36 Message received fro m Dr. Castillo to keep the same dose for now. Called Nikki back at [place] and released message via voicemail. Encouraged her to call office back if have any more questions or concerns. [facility] 36 Received call from Nikki, nurse at [facility]. They repeated the vanc trough again today due to it being elevated on the . The level today is 22. Facility calling to see if physician wanted to continue the 1gm every 12 hours or want to make another adjustment before his dose at 9am today. Sent secure chat to Dr. Castillo. Awaiting message back. [facility] Trough vancomycin levelOrder ed By: Tab Dupont on 05-03-2025 Vancomycin trough [Mass/Vol] 22.0 ug/mL High 5.0-15.0 [facility] Comment on above: Recommended goal tro [...] therapy recommended for serious lifethreatening infections include:- Jnvwddbhxu-Gstpekjovnah-Kxuohvjvu (Ventilator/Healtcare Associated)-Sepsis PLEASE CONTACT PHARMACY SERVICES (#5502) FOR INTERPRETATIONOF RESULTS. Vancomycin, Trough Levelon 0 05-03-2025 VANCO, TROUGH 22.0 ug/mL High 5.0-15.0 [facility] Comment on above: Order Comment: [...] (Ventilator/Healtcare Associated) -Sepsis PLEASE CONTACT PHARMACY SERVICES (#0243) FOR INTERPRETATION OF RESULTS. Performed By: #### L 101.9900, L100.0500, L500.4050, L501.6710 #### [facility] [address] [place], [address] 36on 05-01-2025 36 Received lab report for [...] Ambrosio. Verbalized understanding of new order. Normal [facility] 36 Pt dc to [place] jessy Delvalle [phone]. Called facility and spoke to nurse Vaughan to verify IV meds, dose, frequency, EOT, weekly labs, and follow up appt with Dr. Castillo on 06/02 at 11am. She was able to read back orders. Also faxed appt reminder to facility and received confirmation fax (scanned under media). Normal [facility] Anion gap in Serum or Plasma Ordered By: Tab Dupont on 05-01-2025 Anion gap [Moles/Vol] 12 mmol/L 5-15 [facility] BUN/creatinine ratioOrdered By: Tab Dupont on 05-01-2025 Urea nitrogen/Creatinine [Mass ratio] 19.4 mg/mg 10- [facility] Bilirubin, totalOrdered By: Tab Dupont on 05-01-2025 Bilirubin [Mass/Vol] 0.26 mg/dL 0.00-1.30 [facility] CBC-Complete Blood Cnt No Di ffon 05-01-2025 Erythrocyte distribution width (RBC) [Ratio] 15.9 % High 11.6-14.6 [facility] Comment on above: Performed By: #### L 501.6710, L101.9900, L501.8820 #### [facility] [address] [place], [address] Hematocrit (Bld) [Volume fraction] 33.5 % Low 40-54 [facility] Comment on above: Performed By: #### L 501.6710, L101.9900, L501.8820 #### [facility] [address] [place], [address] Hemoglobin (Bld) [Mass/Vol] 10.9 g/dL Low 13.0-16.5 [facility] Comment on above: Performed By: #### L 501.6710, L101.9900, L501.8820 #### [facility] [address] [place], [address] MCH (RBC) [Entitic mass] 29.4 pg Normal 27.0-32.0 [facility] Comment on above: Performed By: #### L 501.6710, L101.9900, L501.8820 #### [facility] [address] [place], [address] MCHC (RBC) [Mass/Vol] 32.5 g/dL Normal 32-36 [facility] Comment on above: Performed By: #### L 501.6710, L101.9900, L501.8820 #### [facility] [address] [place], [address] MCV (RBC) [Entitic vol] 90.3 fL Normal 80-94 [facility] Comment on above: Performed By: #### L 501.6710, L101.9900, L501.8820 #### [facility] [address] [place], [address] Platelet mean volume (Bld) [Entitic vol] 9.7 fL Normal 6.2-12.0 [facility] Comment on above: Performed By: #### L 501.6710, L101.9900, L501.8820 #### [facility] [address] [place], [address] Platelets (Bld) [#/Vol] 340 10*3/uL Normal 150-450 [facility] Comment on above: Performed By: #### L 501.6710, L101.9900, L501.8820 #### [facility] [address] [place], [address] RBC (Bld) [#/Vol] 3.71 10*6/uL Low 4.6-6.2 [facility] Comment on above: Performed By: #### L 501.6710, L101.9900, L501.8820 #### [facility] [address] [place], [address] RDW SD 51.4 fl High 35.1-43.9 [facility] Comment on above: Performed By: #### L 501.6710, L101.9900, L501.8820 #### [facility] [address] [place], [address] WBC (Bld) [#/Vol] 7.4 10*3/uL Normal 4.4-11.0 [facility] Comment on above: Performed By: #### L 501.6710, L101.9900, L501.8820 #### [facility] [address] [place], [address] Carbon dioxide, total [Moles /volume] in Central venous bloodOrdered By: Tab Dupont on 05-01-2025 CO2 [Moles/Vol] 20.2 mmol/L Low 21.0-32.0 [facility] Chloride assayOrdered By: Vinh Lehman on 05-01-2025 Chloride [Moles/Vol] 106 mmol/L 98-108 [facility] Comprehensive Metabolic Prof ilon 05-01-2025 Albumin [Mass/Vol] 3.0 g/dL Low 3.4-4.8 [facility] Comment on above: Performed By: #### L 501.6710, L101.9900, L501.8820 #### [facility] [address] [place], [address] Albumin/Globulin [Mass ratio] 0.8 {ratio} Low 0.9-2.4 [facility] Comment on above: Performed By: #### L 501.6710, L101.9900, L501.8820 #### [facility] [address] [place], [address] ALK PHOS 115 U/L Normal 40-129 [facility] Comment on above: Performed By: #### L 501.6710, L101.9900, L501.8820 #### [facility] [address] [place], [address] ALT [Catalytic activity/Vol] 7 U/L Normal <=46 [facility] Comment on above: Performed By: #### L 501.6710, L101.9900, L501.8820 #### [facility] [address] [place], [address] AST [Catalytic activity/Vol] 16 U/L Normal <=37 [facility] Comment on above: Performed By: #### L 501.6710, L101.9900, L501.8820 #### [facility] [address] [place], [address] Bilirubin [Mass/Vol] 0.26 mg/dL Normal 0.00-1.30 [facility] Comment on above: Performed By: #### L 501.6710, L101.9900, [id number] #### [facility] [address] [place], [address] BUN/CRE 19.4 RATIO Normal 10-20 [facility] Comment on above: Performed By: #### L 501.6710, L101.9900, [id number] #### [facility] [address] [place], [address] Calcium [Mass/Vol] 8.5 mg/dL Normal 7.6-11.0 [facility] Comment on above: Performed By: #### L 501.6710, L101.9900, L501.8820 #### [facility] [address] [place], [address] Chloride [Moles/Vol] 106 mmol/L Normal 98-108 [facility] Comment on above: Performed By: #### L 501.6710, L101.9900, L501.8820 #### [facility] [address] [place], [address] CO2 [Moles/Vol] 20.2 mmol/L Low 21.0-32.0 [facility] Comment on above: Performed By: #### L 501.6710, L101.9900, [id number] #### [facility] [address] [place], [address] Creatinine [Mass/Vol] 0.51 mg/dL Low 0.70-1.20 [facility] Comment on above: Performed By: #### L 501.6710, L101.9900, [id number] #### [facility] [address] [place], [address] GAP 12 Normal 5-15 [facility] Comment on above: Performed By: #### L 501.6710, L101.9900, [id number] #### [facility] [address] [place], [address] GFR/1.73 sq M.predicted among non-blacks MDRD (S/P/Bld) [Vol rate/Area] 114 mL/min/{1.73_m2} Normal >60 [facility] Comment on above: Result Comment: mL/m in/1.73m2 CKD-EPI Creatinine Equation (2020) Performed By: #### L 501.6710, L101.9900, [id number] #### [facility] [address] [place], [address] Globulin (S) [Mass/Vol] 3.8 g/dL Normal 2.2-4.2 [facility] Comment on above: Performed By: #### L 501.6710, L101.9900, L501.8820 #### [facility] [address] [place], [address] Glucose [Mass/Vol] 126 mg/dL High 70-99 [facility] Comment on above: Performed By: #### L 501.6710, L101.9900, [id number] #### [facility] [address] [place], [address] Potassium [Moles/Vol] 3.7 mmol/L Normal 3.3-5.1 [facility] Comment on above: Performed By: #### L 501.6710, L101.9900, [id number] #### [facility] [address] [place], [address] Sodium [Moles/Vol] 138 mmol/L Normal 133-145 [facility] Comment on above: Performed By: #### L 501.6710, L101.9900, [id number] #### [facility] [address] [place], [address] T PROT 6.8 g/dL Normal 5.9-8.4 [facility] Comment on above: Performed By: #### L 501.6710, L101.9900, [id number] #### [facility] [address] [place], [address] Urea nitrogen [Mass/Vol] 10 mg/dL Normal 4-19 [facility] Comment on above: Performed By: #### L 501.6710, L101.9900, [id number] #### [facility] [address] [place], [address] Erythrocyte distribution wid th ratioOrdered By: Tab Dupont on 05-01-2025 Erythrocyte distribution width (RBC) [Ratio] 15.9 % High 11.6-14.6 [facility] Erythrocyte distribution wid th standard deviationOrdered By: Tab Dupont on 05-01-2025 Erythrocyte distribution width (RBC) [Ratio] 51.4 fl High 35.1-43.9 [facility] Glomerular filtration rate ( GFR) estimation/1.73 sq m using serum, plasma, or whole bOrdered By: Tab Dupont on 05-01-2025 GFR/1.73 sq M.predicted among non-blacks MDRD (S/P/Bld) [Vol rate/Area] 114 mL/min/{1.73_m2} >60 [facility] Comment on above: mL/min/1.73m2 CKD-EP I Creatinine Equation (2020) Hematocrit Auto (Bld) [Volum e fraction]Ordered By: Tab Dupont on 05-01-2025 Hematocrit (Bld) [Volume fraction] 33.5 % Low 40-54 [facility] Hemoglobin measurementOrdere d By: Tab Dupont on 05-01-2025 Hemoglobin (Bld) [Mass/Vol] 10.9 g/dL Low 13.0-16.5 [facility] - Chemistry and C hemistry - challengeOrdered By: Tab Dupont on 05-01-2025 AST [Catalytic activity/Vol] 16 U/L <38 [facility] MCV (mean corpuscular volume ) determinationOrdered By: Tab Dupont on 05-01-2025 MCV (RBC) [Entitic vol] 90.3 fL 80-94 [facility] Mean corpuscular hemoglobin (MCH) determinationOrdered By: Tab Dupont on 05-01-2025 MCH (RBC) [Entitic mass] 29.4 pg 27.0-32.0 [facility] Mean corpuscular hemoglobin concentration (MCHC) determinationOrdered By: Tab Dupont on 05-01-2025 MCHC (RBC) [Mass/Vol] 32.5 g/dL 32-36 [facility] Mean platelet volume determi nationOrdered By: Tab Dupont on 05-01-2025 Platelet mean volume (Bld) [Entitic vol] 9.7 fL 6.2-12.0 [facility] Platelet countOrdered By: Vinh Lehman on 05-01-2025 Platelets (Bld) [#/Vol] 340 10*3/uL 150-450 [facility] Potassium measurement (mass/ volume)Ordered By: Tab Dupont on 05-01-2025 Potassium (Unsp spec) [Mass/Vol] 3.7 mmol/L 3.3-5.1 [facility] RBC Auto (Bld) [#/Vol]Ordere d By: Tab Dupont on 05-01-2025 RBC (Bld) [#/Vol] 3.71 10*6/uL Low 4.6-6.2 [facility] Serum creatinine measurement (mass/volume)Ordered By: Tab Dupont on 05-01-2025 Creatinine [Mass/Vol] 0.51 mg/dL Low 0.70-1.20 [facility] Serum globulin measurementOr dered By: Tab Dupont on 05-01-2025 Globulin (S) [Mass/Vol] 3.8 g/dL 2.2-4.2 [facility] Serum glucose measurement (m ass/volume)Ordered By: Tab Dupont on 05-01-2025 Glucose [Mass/Vol] 126 mg/dL High 70-99 [facility] Serum or plasma alanine miller otransferase (ALT) measurementOrdered By: Tab Dupont on 05-01-2025 ALT [Catalytic activity/Vol] 7 U/L <47 [facility] Serum or plasma albumin randall urement (mass/volume)Ordered By: Tab Dupont on 05-01-2025 Albumin [Mass/Vol] 3.0 g/dL Low 3.4-4.8 [facility] Serum or plasma albumin/glob ulin mass ratioOrdered By: Tab Dupont on 05-01-2025 Albumin/Globulin [Mass ratio] 0.8 {ratio} Low 0.9-2.4 [facility] Serum or plasma alkaline nallely sphatase measurementOrdered By: Tab Dupont on 05-01-2025 ALP [Catalytic activity/Vol] 115 U/L 40-129 [facility] Serum or plasma calcium randall urement (mass/volume)Ordered By: Tab Dupont on 05-01-2025 Calcium [Mass/Vol] 8.5 mg/dL 7.6-11.0 [facility] Serum or plasma urea nitroge n measurement (mass/volume)Ordered By: Tab Dupont on 05-01-2025 Urea nitrogen [Mass/Vol] 10 mg/dL 4-19 [facility] Sodium levelOrdered By: Omar Dupont on 05-01-2025 Sodium [Moles/Vol] 138 mmol/L 133-145 [facility] Total proteinOrdered By: Regino Dupont on 05-01-2025 Protein [Mass/Vol] 6.8 g/dL 5.9-8.4 [facility] Trough vancomycin levelOrder ed By: Tab Dupont on 05-01-2025 Vancomycin trough [Mass/Vol] 26.1 ug/mL High 5.0-15.0 [facility] Comment on above: Recommended goal tro [...] therapy recommended for serious lifethreatening infections include:- Xlyhbrxbxq-Pxndplvztemp-Flwiidlau (Ventilator/Healtcare Associated)-Sepsis PLEASE CONTACT PHARMACY SERVICES (#[id number]) FOR INTERPRETATIONOF RESULTS. Vancomycin, Trough Levelon 0 05-01-2025 VANCO, TROUGH 26.1 ug/mL High 5.0-15.0 [facility] Comment on above: Order Comment: [...] (Ventilator/Healtcare Associated) -Sepsis PLEASE CONTACT PHARMACY SERVICES (#[id number]) FOR INTERPRETATION OF RESULTS. Performed By: #### L 501.6710, L101.9900, L501.8820 #### [facility] [address] [place], [place], [address] White blood cell (WBC) count Ordered By: Tab Dupont on 05-01-2025 WBC (Bld) [#/Vol] 7.4 10*3/uL 4.4-11.0 [facility] 30on 04-28-2025 30 Proteus is sensitive to unasyn. OPAT for unasyn and vancomycin completed and scanned into media with stop date of 06/06. Follow up with Dr. Castillo. D/w TCC. Plans for discharge to SNF. Jo-Ann Ortiz MD [facility] [id number] 04-28-2025 [id number] Jail/SNF - Return [place] [facility] [address] [facility] [place] [id number] [phone] Patient/Family Choice [facility] [phone] Next Site of Care Admission Date: 04/21/2025 09:56 PM Patient Name: ANMOL REYNOLDS [facility] [id number] A Date of : 1960 ------- Placement Information ------- Referral Type:Jail/SNF - Return Referral ID:[id number] Provider Name:[facility] Address 1:[address] Address 2: City:[place] Selection Factors:Patient/Famil y Choice State:[place] Normal [facility] [phone] Confirmed pickup mingo e of 5:30pm on 04/28/25 by transport company [employer] at phone number [phone]. Location of facility drop off is [facility]. Facility notified via [employer], [facility] notified on secure chat. [facility] [phone] Transport requested in Roundtrip in will call to [facility] per [facility]. [facility] Bacteria identified Aer cx N om (Unsp spec)on 04-28-2025 Gram Stain Result Many Polymorphonuclear leukocytes per low power field Abnormal [facility] Gram Stain Result Positive Abnormal [facility] ealt Interpretation and review of laboratory results Abnormal [facility] Laboratory - Chemistry and C hemistry - challengeon 04-28-2025 Glucose [Mass/Vol] 212 mg/dL High 70 - 100 mg/dL [facility] Glucose [Mass/Vol] 183 mg/dL High 70 - 100 mg/dL [facility] Glucose [Mass/Vol] 152 mg/dL High 70 - 100 mg/dL [facility] Laboratory - Microbiology an d Antimicrobial susceptibilityon 04-28-2025 Bacteria identified Aer cx Nom (Unsp spec) Rare skin gosia present [facility] Bacteria identified Aer cx Nom (Unsp spec) Moderate Enterococcus raffinosus Abnormal [facility] Bacteria identified Aer cx Nom (Unsp spec) Rare Proteus mirabilis Abnormal [facility] No Panel Informationon 04-28 Interpretation and review of laboratory results Abnormal [facility] Performed by: [address] [address] CLIA ID: [id number] [facility] Interpretation and review of laboratory results Abnormal [facility] Performed by: [facility], [address] [place] [address] CLIA ID: [id number] [facility] Interpretation and review of laboratory results Abnormal [facility] Performed by: [address] [address] CLIA ID: [id number] [facility] Nursing Noteon 04-28-2025 Nursing Note Called report to [facility]. PICC line clean dry and intact. Aide got pt ready and gathered all belongings. Waiting on transport to arrive. Normal [facility] 30on 04-27-2025 [address] Castillo- s/p L ischial wound debridement with osteomyelitis. Additional organisms are being reported on OR cx. E raffinosus, Proteus, MRSA, Clostridium ramosum, enteric gosia, and skin gosia. Await Proteus sensitivities prior to completion of OPAT. Will provide final recommendations tomorrow. D/w TCC. Jo-Ann Ortiz MD Normal [facility] BASIC METABOLIC PANELon 04-05 Anion gap [Moles/Vol] 3 mmol/L Normal 3-13 [facility] Comment on above: Performed By: #### L [id number] ####Associate Professor Plant Pathology: BIANCA [id number])[facility] ([place] [address] [place] Calcium [Mass/Vol] 8.6 mg/dL Low 8.8-10.0 [facility] Comment on above: Performed By: #### L [id number] ####Associate Professor Plant Pathology: BIANCA [id number])[facility] ([facility])[address] [place] [address] Chloride [Moles/Vol] 104 mmol/L Normal 98-107 [facility] Comment on above: Performed By: #### L [id number] ####Associate Professor Plant Pathology: BIANCA [id number])[facility] ([facility])[address] [place] [address] CO2 [Moles/Vol] 29 mmol/L Normal 23-31 [facility] Comment on above: Performed By: #### L [id number] ####Associate Professor Plant Pathology: BIANCA NICHOLS ([id number])[facility])[address] [place] [address] Creatinine [Mass/Vol] 0.64 mg/dL Low 0.72-1.25 [facility] Comment on above: Performed By: #### L [id number] ####Associate Professor Plant Pathology: BIANCA NICHOLS ([id number])[facility])[address] [place] [address] GLOMERULAR FILTRATION RATE ML/MIN/1.73 SQ M.PREDICTED >90.0 Normal >60.0 [facility] Comment on above: Result Comment: Calc ulation based on the Chronic Kidney Disease Epidemiology Collaboration (CKD-EPI) equation refit without adjustment for race Performed By: #### L [id number] ####Associate Professor Plant Pathology: BIANCA NICHOLS ([id number])[facility] ([facility])[address] [place] [address] Glucose [Mass/Vol] 96 mg/dL Normal 82-115 [facility] Comment on above: Performed By: #### L AB15 ####Associate Professor Plant Pathology: BIANCA NICHOLS ([id number])[facility])[address] [place] [address] Potassium [Moles/Vol] 4.0 mmol/L Normal 3.5-5.1 [facility] Comment on above: Result Comment: [facility] potassium values may be up to 0.5 mmol/L lower than serum values. Performed By: #### L AB15 ####Associate Professor Plant Pathology: BIANCA NICHOLS ([id number])[facility])[address] [place] [address] [place] Sodium [Moles/Vol] 136 mmol/L Normal 136-145 [facility] Comment on above: Performed By: #### L [id number] ####Associate Professor Plant Pathology: BIANCA NICHOLS ([id number])[facility] ([facility])[address] [place] [address] Urea nitrogen [Mass/Vol] 21 mg/dL Normal 06-27 [facility] Comment on above: Performed By: #### L [id number] ####Associate Professor Plant Pathology: BIANCA NICHOLS ([id number])[facility] ([facility])[address] [place] [address] Bacteria identified Aer cx N om (Unsp spec)on 04-27-2025 Gram Stain Result Few Polymorphonuclea r leukocytes per low power field [facility] Gram Stain Result No organisms seen [facility] Interpretation and review of laboratory results Abnormal [facility] Bacteria identified Anaer cx Nom (Unsp spec)Ordered By: Vijaya Mariscal on 04-27-2025 Interpretation and review of laboratory results Abnormal [facility] Bacteria identified Cx Nom ( Bld)on 04-27-2025 Interpretation and review of laboratory results Normal [facility] Blood Collection Site: Right Forearm [facility] Blood Collection Site: Left PICC Purple Lumen [facility] Basic metabolic 1998 panelon 04-27-2025 Anion gap [Moles/Vol] 3 mmol/L 3 - 13 mmol/L [facility] Calcium [Mass/Vol] 8.6 mg/dL Low 8.8 - 10. 0 mg/dL [facility] Chloride [Moles/Vol] 104 mmol/L 98 - 10 7 mmol/L [facility] CO2 [Moles/Vol] 29 mmol/L 23 - 31 mmol/L [facility] Creatinine [Mass/Vol] 0.64 mg/dL Low 0.72 - 1.25 mg/dL [facility] GFR/1.73 sq M.predicted (S/P/Bld) [Vol rate/Area] - PINF [facility] Comment on above: Calculation based on the Chronic Kidney Disease Epidemiology Collaboration (CKD-EPI) equation refit without adjustment for race Glucose [Mass/Vol] 96 mg/dL 82 - 115 mg/dL [facility] Interpretation and review of laboratory results Abnormal [facility] Potassium [Moles/Vol] 4 mmol/L 3.5 - 5.1 mmol/L [facility] Comment on above: Plasma potassium leonie ues may be up to 0.5 mmol/L lower than serum values. Sodium [Moles/Vol] 136 mmol/L 136 - 145 mmol/L [facility] Urea nitrogen [Mass/Vol] 21 mg/dL 9 - 23 mg/dL [facility] CBC W Auto Differential pane l (Bld)on 04-27-2025 Basophils (Bld) [#/Vol] 0.1 10*3/uL 0.0 - 0.2 10*3/uL [facility] Basophils/100 WBC (Bld) 0.8 % 0.0 - 2.0 % [facility] Eosinophils (Bld) [#/Vol] 0.4 10*3/uL 0.0 - 0.5 10*3/uL [facility] Eosinophils/100 WBC (Bld) 5.3 % 0.0 - 6.0 % [facility] Erythrocyte distribution width (RBC) [Ratio] 14.9 % 11.5 - 15.0 % [facility] Hematocrit (Bld) [Volume fraction] 34 % Low 40.0 - 52.0 % [facility] Hemoglobin (Bld) [Mass/Vol] 10.9 g/dL Low 13.0 - 18.0 g/dL [facility] Immature granulocytes (Bld) [#/Vol] 0 10*3/uL NINF - 0.1 10*3/uL [facility] Immature granulocytes/100 WBC (Bld) 0.5 % 0.0 - 2.0 % [facility] Interpretation and review of laboratory results Abnormal [facility] Lymphocytes (Bld) [#/Vol] 2.9 10*3/uL 1.0 - 4.3 10*3/uL [facility] Lymphocytes/100 WBC (Bld) 36.4 % 15.0 - 45.0 % [facility] MCH (RBC) [Entitic mass] 28.8 pg 26. 0 - 34.0 pg [facility] MCHC (RBC) [Mass/Vol] 32.1 % 30.5 - 36.0 % [facility] MCV (RBC) [Entitic vol] 89.9 fL 77.0 - 99.0 fL [facility] Monocytes (Bld) [#/Vol] 0.7 10*3/uL 0.0 - 0.9 10*3/uL [facility] Monocytes/100 WBC (Bld) 8.2 % 5.0 - 13.0 % [facility] Neutrophils (Bld) [#/Vol] 3.9 10*3/uL 1.8 - 7.5 10*3/uL [facility] Neutrophils/100 WBC (Bld) 48.8 % 38.0 - 82.0 % [facility] Nucleated RBC/100 WBC (Bld) [Ratio] 0 % [facility] Platelet mean volume (Bld) [Entitic vol] 9.5 fL 9.0 - 12.7 fL [facility] Platelets (Bld) [#/Vol] 363 10*3/uL 140 - 440 10*3/uL [facility] RBC (Bld) [#/Vol] 3.78 10*6/uL Low 4.40 - 5.9 0 10*6/uL [facility] WBC (Bld) [#/Vol] 8 10*3/uL 3.6 - 10.7 10*3/uL [facility] CBC WITH AUTO DIFFERENTIALon 04-27-2025 Basophils (Bld) [#/Vol] 0.1 10*3/uL Normal 0.0-0.2 [facility] Comment on above: Performed By: #### L [id number] ####Associate Professor Plant Pathology: BIANCA NICHOLS ([id number])[facility])[address] [place] [address] Basophils/100 WBC (Bld) 0.8 % Normal 0.0-2.0 [facility] Comment on above: Performed By: #### L [id number] ####Associate Professor Plant Pathology: BIANCA [id number])[facility])[address] [place] [address] Eosinophils (Bld) [#/Vol] 0.4 10*3/uL Normal 0.0-0.5 [facility] Comment on above: Performed By: #### L [id number] ####Associate Professor Plant Pathology: BIANCA NICHOLS ([id number])[facility])[address] [place] [address] [place] Eosinophils/100 WBC (Bld) 5.3 % Normal 0.0-6.0 [facility] Comment on above: Performed By: #### L [id number] ####Associate Professor Plant Pathology: BIANCA [id number])[facility] [address] Erythrocyte distribution width (RBC) [Ratio] 14.9 % Normal 11.5-15.0 [facility] Comment on above: Performed By: #### L [id number] ####Associate Professor Plant Pathology: BIANCA NICHOLS ([id number])[facility])[address] [place] [address] Hematocrit (Bld) [Volume fraction] 34.0 % Low 40.0-52.0 [facility] Comment on above: Performed By: #### L [id number] ####Associate Professor Plant Pathology: BIANCA NICHOLS ([id number])[address] Hemoglobin (Bld) [Mass/Vol] 10.9 g/dL Low 13.0-18.0 [facility] Comment on above: Performed By: #### L [id number] ####Associate Professor Plant Pathology: BIANCA NICHOLS ([id number])[facility])[address] [place] [address] IMMATURE GRANS % 0.5 % Normal 0.0-2.[address] [facility] Comment on above: Performed By: #### L [id number] ####Associate Professor Plant Pathology: BIANCA NICHOLS ([id number])[facility])[address] [place] [address] IMMATURE GRANS ABSOLUTE 0.0 10*3/uL Normal <0.1 [facility] Comment on above: Performed By: #### L [id number] ####Associate Professor Plant Pathology: BIANCA NICHOLS ([id number])[facility])[address] [place] [address] Lymphocytes (Bld) [#/Vol] 2.9 10*3/uL Normal 1.0-4.3 [facility] Comment on above: Performed By: #### L [id number] ####Associate Professor Plant Pathology: BIANCA NICHOLS ([id number])[facility])[address] [place] [address] Lymphocytes/100 WBC (Bld) 36.4 % Normal 15.0-45.0 [facility] Comment on above: Performed By: #### L [id number] ####Associate Professor Plant Pathology: BIANCA NICHOLS ([id number])[facility])[address] [place] [address] MCH (RBC) [Entitic mass] 28.8 pg Normal 26.0-34.0 [facility] Comment on above: Performed By: #### L [id number] ####Associate Professor Plant Pathology: BIANCA NICHOLS ([id number])[facility])[address] [place] [address] MCHC 32.1 % Normal 30.5-36.0 [facility] Comment on above: Performed By: #### L [id number] ####Associate Professor Plant Pathology: BIANCA NICHOLS ([id number])[facility])[address] [place] [address] MCV (RBC) [Entitic vol] 89.9 fL Normal 77.0-99.0 [facility] Comment on above: Performed By: #### L [id number] ####Associate Professor Plant Pathology: BIANCA NICHOLS ([id number])[facility])[address] [place] [address] Monocytes (Bld) [#/Vol] 0.7 10*3/uL Normal 0.0-0.9 [facility] Comment on above: Performed By: #### L [id number] ####Associate Professor Plant Pathology: BIANCA NICHOLS ([id number])[facility])[address] [place] [address] Monocytes/100 WBC (Bld) 8.2 % Normal 5.0-13.0 [facility] Comment on above: Performed By: #### L [id number] ####Associate Professor Plant Pathology: BIANCA NICHOLS ([id number])[facility])[address] [place] [address] NEUTROPHILS ABSOLUTE 3.9 10*3/uL Normal 1.8-7.5 [facility] Comment on above: Performed By: #### L [id number] ####Associate Professor Plant Pathology: BIANCA NICHOLS ([id number])[facility] ([facility])[address] [place] [address] Neutrophils/100 WBC (Bld) 48.8 % Normal 38.0-82.0 [facility] Comment on above: Performed By: #### L [id number] ####Associate Professor Plant Pathology: BIANCA NICOHLS ([id number])[facility] ([facility])[address] [place] [address] NRBC 0.0 /100 WBCs Normal 0.0-2.0 [facility] Comment on above: Performed By: #### L [id number] ####Associate Professor Plant Pathology: BIANCA NICHOLS ([id number])[facility] ([facility])[address] [place] [address] Platelet mean volume (Bld) [Entitic vol] 9.5 fL Normal 9.0-12.7 [facility] Comment on above: Performed By: #### L [id number] ####Associate Professor Plant Pathology: BIANCA NICHOLS ([id number])[facility] ([facility])[address] [place] [address] Platelets (Bld) [#/Vol] 363 10*3/uL Normal 140-440 [facility] Comment on above: Performed By: #### L [id number] ####Associate Professor Plant Pathology: BIANCA NICHOLS ([id number])[facility] ([facility])[address] [place] [address] RBC (Bld) [#/Vol] 3.78 10*6/uL Low 4.40-5.90 [facility] Comment on above: Performed By: #### L [id number] ####Associate Professor Plant Pathology: BIANCA NICHOLS ([id number])[facility] ([facility])[address] [place] [address] [place] WBC (Bld) [#/Vol] 8.0 10*3/uL Normal 3.6-10.7 [facility] Comment on above: Performed By: #### L [id number] ####Associate Professor Plant Pathology: BIANCA NICHOLS ([id number])[facility])[address] [place] [address] Laboratory - Chemistry and C hemistry - challengeon 04-27-2025 Glucose [Mass/Vol] 146 mg/dL High 70 - 100 mg/dL [facility] Glucose [Mass/Vol] 228 mg/dL High 70 - 100 mg/dL [facility] Glucose [Mass/Vol] 265 mg/dL High 70 - 100 mg/dL [facility] Glucose [Mass/Vol] 137 mg/dL High 70 - 100 mg/dL [facility] Laboratory - Microbiology an d Antimicrobial susceptibilityOrdered By: Vijaya Mariscal on 04-27-2025 Bacteria identified Anaer cx Nom (Unsp spec) Moderate Anaerobic Gram-negative bacilli, not B. fragilis Abnormal [facility] Laboratory - Microbiology an d Antimicrobial susceptibilityon 04-27-2025 Bacteria identified Aer cx Nom (Unsp spec) Rare Enterococcus raffinosus Abnormal [facility] Bacteria identified Cx Nom (Bld) No growth at 5 days [facility] No Panel Informationon 04-27 Interpretation and review of laboratory results Abnormal [facility] Performed by: [place] [address] CLIA ID: [id number] [facility] Interpretation and review of laboratory results Abnormal [facility] Performed by: [place] [address] CLIA ID: [id number] [facility] Interpretation and review of laboratory results Abnormal [facility] Performed by: [address] [address] CLIA ID: [id number] [facility] Interpretation and review of laboratory results Abnormal [facility] Performed by: [address] [address] CLIA ID: [id number] [facility] Nursing Noteon 04-27-2025 Nursing Note Patient dressings changed as per orders. Patient tolerated well. Left PICC dressing changed patient tolerated well Normal [facility] BASIC METABOLIC PANELon 04-05 Anion gap [Moles/Vol] 6 mmol/L Normal 3-13 [facility] Comment on above: Performed By: #### L [id number] ####Associate Professor Plant Pathology: BIANCA NICHOLS ([id number])[facility] ([facility])[address] [place] [address] Calcium [Mass/Vol] 8.5 mg/dL Low 8.8-10.0 [facility] Comment on above: Performed By: #### L [id number] ####Associate Professor Plant Pathology: BIANCA NICHOLS ([id number])[facility] ([facility])[address] [place] [address] Chloride [Moles/Vol] 103 mmol/L Normal 98-107 [facility] Comment on above: Performed By: #### L [id number] ####Associate Professor Plant Pathology: BIANCA NICHOLS ([id number])[facility] ([facility])[address] [place] [address] CO2 [Moles/Vol] 27 mmol/L Normal 23-31 [facility] Comment on above: Performed By: #### L [id number] ####Associate Professor Plant Pathology: BIANCA NICHOLS ([id number])[facility] ([facility])[address] [place] [address] Creatinine [Mass/Vol] 0.62 mg/dL Low 0.72-1.25 [facility] Comment on above: Performed By: #### L [id number] ####Associate Professor Plant Pathology: BIANCA NICHOLS ([id number])[facility])[address] [place] [address] GLOMERULAR FILTRATION RATE ML/MIN/1.73 SQ M.PREDICTED >90.0 Normal >60.0 [facility] Comment on above: Result Comment: Calc ulation based on the Chronic Kidney Disease Epidemiology Collaboration (CKD-EPI) equation refit without adjustment for race Performed By: #### L [id number] ####Associate Professor Plant Pathology: BIANCA NICHOLS ([id number])[facility] ([facility])[address] [place] [address] [place] Glucose [Mass/Vol] 155 mg/dL High 82-115 [facility] Comment on above: Performed By: #### L AB15 ####Associate Professor Plant Pathology: BIANCA NICHOLS ([id number])[facility] ([facility])[address] [place] [address] [place] Potassium [Moles/Vol] 4.0 mmol/L Normal 3.5-5.1 [facility] Comment on above: Result Comment: [facility] potassium values may be up to 0.5 mmol/L lower than serum values. Performed By: #### L [id number] ####Associate Professor Plant Pathology: BIANCA NICHOLS ([id number])[facility] ([facility])[address] [place] [address] Sodium [Moles/Vol] 136 mmol/L Normal 136-145 [facility] Comment on above: Performed By: #### L AB15 ####Associate Professor Plant Pathology: BIANCA NICHOLS ([id number])[facility] ([facility])[address] [place] [address] Urea nitrogen [Mass/Vol] 19 mg/dL Normal 9-23 [facility] Comment on above: Performed By: #### L [id number] ####Associate Professor Plant Pathology: BIANCA NICHOLS ([id number])[facility] ([facility])[address] [place] [address] Basic metabolic 1998 panelon 04-26-2025 Anion gap [Moles/Vol] 6 mmol/L 3 - 13 mmol/L [facility] Calcium [Mass/Vol] 8.5 mg/dL Low 8.8 - 10. 0 mg/dL [facility] Chloride [Moles/Vol] 103 mmol/L 98 - 10 7 mmol/L [facility] CO2 [Moles/Vol] 27 mmol/L 23 - 31 mmol/L [facility] Creatinine [Mass/Vol] 0.62 mg/dL Low 0.72 - 1.25 mg/dL [facility] [facility] GFR/1.73 sq M.predicted (S/P/Bld) [Vol rate/Area] - PINF [facility] Comment on above: Calculation based on the Chronic Kidney Disease Epidemiology Collaboration (CKD-EPI) equation refit without adjustment for race Glucose [Mass/Vol] 155 mg/dL High 82 - 115 mg/dL [facility] Interpretation and review of laboratory results Abnormal [facility] Potassium [Moles/Vol] 4 mmol/L 3.5 - 5.1 mmol/L [facility] Comment on above: Plasma potassium leonie ues may be up to 0.5 mmol/L lower than serum values. Sodium [Moles/Vol] 136 mmol/L 136 - 145 mmol/L [facility] Urea nitrogen [Mass/Vol] 19 mg/dL 9 - 23 mg/dL [facility] CBC (HEMOGRAM)on 04-26-2025 Erythrocyte distribution width (RBC) [Ratio] 14.8 % Normal 11.5-15.0 [facility] Comment on above: Performed By: #### L [id number] ####Associate Professor Plant Pathology: BIANCA NICHOLS ([id number])[facility])[address] [place] [address] Hematocrit (Bld) [Volume fraction] 33.8 % Low 40.0-52.0 [facility] Comment on above: Performed By: #### L [id number] ####Associate Professor Plant Pathology: BIANCA NICHOLS ([id number])[address] Hemoglobin (Bld) [Mass/Vol] 11.0 g/dL Low 13.0-18.0 [facility] Comment on above: Performed By: #### L [id number] ####Associate Professor Plant Pathology: BIANCA NICHOLS ([id number])[address] MCH (RBC) [Entitic mass] 29.3 pg Normal 26.0-34.0 [facility] Comment on above: Performed By: #### L [id number] ####Associate Professor Plant Pathology: BIANCA NICHOLS ([id number])[address] MCHC 32.5 % Normal 30.5-36.0 [facility] Comment on above: Performed By: #### L [id number] ####Associate Professor Plant Pathology: BIANCA [id number])[address] MCV (RBC) [Entitic vol] 89.9 fL Normal 77.0-99.0 [facility] Comment on above: Performed By: #### L [id number] ####Associate Professor Plant Pathology: BIANCA [id number])[facility] ([facility])[address] [place] [address] Platelet mean volume (Bld) [Entitic vol] 9.5 fL Normal 9.0-12.7 [facility] Comment on above: Performed By: #### L [id number] ####Associate Professor Plant Pathology: BIANCA NICHOLS ([id number])[facility])[address] [place] [address] Platelets (Bld) [#/Vol] 386 10*3/uL Normal 140-440 [facility] Comment on above: Performed By: #### L [id number] ####Associate Professor Plant Pathology: BIANCA NICHOLS ([id number])[facility])[address] [place] [address] RBC (Bld) [#/Vol] 3.76 10*6/uL Low 4.40-5.90 [facility] Comment on above: Performed By: #### L [id number] ####Associate Professor Plant Pathology: BIANCA NICHOLS ([id number])[facility] ([facility])[address] [place] [address] WBC (Bld) [#/Vol] 7.3 10*3/uL Normal 3.6-10.7 [facility] Comment on above: Performed By: #### L [id number] ####Associate Professor Plant Pathology: BIANCA NICHOLS ([id number])[facility])[address] [place] [address] CBC panel Auto (Bld)on 04-26 Erythrocyte distribution width (RBC) [Ratio] 14.8 % 11.5 - 15.0 % [facility] Hematocrit (Bld) [Volume fraction] 33.8 % Low 40.0 - 52.0 % [facility] Hemoglobin (Bld) [Mass/Vol] 11 g/dL Low 13.0 - 18.0 g/dL [facility] Interpretation and review of laboratory results Abnormal [facility] MCH (RBC) [Entitic mass] 29.3 pg 26. 0 - 34.0 pg [facility] MCHC (RBC) [Mass/Vol] 32.5 % 30.5 - 36.0 % [facility] MCV (RBC) [Entitic vol] 89.9 fL 77.0 - 99.0 fL [facility] Platelet mean volume (Bld) [Entitic vol] 9.5 fL 9.0 - 12.7 fL [facility] Platelets (Bld) [#/Vol] 386 10*3/uL 140 - 440 10*3/uL [facility] RBC (Bld) [#/Vol] 3.76 10*6/uL Low 4.40 - 5.9 0 10*6/uL [facility] WBC (Bld) [#/Vol] 7.3 10*3/uL 3.6 - 10.7 10*3/uL [facility] IRON AND TIBCon 04-26-2025 IRON BINDING CAPACITY 136 ug/dL Low 250-450 [facility] Comment on above: Performed By: #### L [id number] ####Associate Professor Plant Pathology: BIANCA NICHOLS ([id number])[facility] ([facility])[address] [place] [address] IRON SATURATION 44.1 % Normal 20.0-50.0 [facility] Comment on above: Performed By: #### L [id number] ####Associate Professor Plant Pathology: BIANCA NICHOLS ([id number])[facility])[address] [place] [address] IRON, TOTAL 60 ug/dL Low 65-175 [facility] Comment on above: Performed By: #### L [id number] ####Associate Professor Plant Pathology: BIANCA NICHOLS ([id number])[facility])[address] [place] [address] Iron and Iron binding capaci ty panelon 04-26-2025 Interpretation and review of laboratory results Abnormal [facility] Iron [Mass/Vol] 60 ug/dL Low 65 - 175 ug/dL [facility] Iron binding capacity [Mass/Vol] 136 ug/dL Low 250 - 450 ug/dL [facility] Iron saturation [Mass fraction] 44.1 % 20.0 - 50.0 % [facility] Laboratory - Chemistry and C hemistry - challengeon 04-26-2025 Glucose [Mass/Vol] 244 mg/dL High 70 - 100 mg/dL [facility] Glucose [Mass/Vol] 199 mg/dL High 70 - 100 mg/dL [facility] Glucose [Mass/Vol] 219 mg/dL High 70 - 100 mg/dL [facility] Glucose [Mass/Vol] 185 mg/dL High 70 - 100 mg/dL [facility] No Panel Informationon 04-26 Interpretation and review of laboratory results Abnormal [facility] Performed by: [address] [address] CLIA ID: [id number] [facility] Interpretation and review of laboratory results Abnormal [facility] Performed by: [address] [address] CLIA ID: [id number] [facility] Interpretation and review of laboratory results Abnormal [facility] Performed by: [address] [address] CLIA ID: [id number] [facility] Interpretation and review of laboratory results Abnormal [facility] Performed by: [address] [address] CLIA ID: [id number] [facility] BASIC METABOLIC PANELon 04-05 Anion gap [Moles/Vol] 7 mmol/L Normal 3-13 [facility] Comment on above: Performed By: #### L [id number] ####Associate Professor Plant Pathology: BIANCA NICHOLS ([id number])[facility])[address] [place] [address] Calcium [Mass/Vol] 8.2 mg/dL Low 8.8-10.0 [facility] Comment on above: Performed By: #### L AB15 ####Associate Professor Plant Pathology: BIANCA NICHOLS ([id number])[facility] ([facility])[address] [place] [address] [place] Chloride [Moles/Vol] 101 mmol/L Normal 98-107 [facility] Comment on above: Performed By: #### L AB15 ####Associate Professor Plant Pathology: BIANCA NICHOLS ([id number])[facility])[address] [place] [address] [place] CO2 [Moles/Vol] 26 mmol/L Normal 23-31 [facility] Comment on above: Performed By: #### L AB15 ####Associate Professor Plant Pathology: BIANCA NICHOLS ([id number])[facility])[address] [place] [address] Creatinine [Mass/Vol] 0.73 mg/dL Normal 0.72-1.25 [facility] Comment on above: Performed By: #### L AB15 ####Associate Professor Plant Pathology: BIANCA NICHOLS ([id number])[facility])[address] [place] [address] GLOMERULAR FILTRATION RATE ML/MIN/1.73 SQ M.PREDICTED >90.0 Normal >60.0 [facility] Comment on above: Result Comment: Calc ulation based on the Chronic Kidney Disease Epidemiology Collaboration (CKD-EPI) equation refit without adjustment for race Performed By: #### L [id number] ####Associate Professor Plant Pathology: BIANCA NICHOLS ([id number])[facility])[address] [place] [address] Glucose [Mass/Vol] 213 mg/dL High 82-115 [facility] Comment on above: Performed By: #### L AB15 ####Associate Professor Plant Pathology: BIANCA NICHOLS ([id number])[facility])[address] [place] [address] Potassium [Moles/Vol] 4.3 mmol/L Normal 3.5-5.1 [facility] Comment on above: Result Comment: [facility] potassium values may be up to 0.5 mmol/L lower than serum values. Performed By: #### L AB15 ####Associate Professor Plant Pathology: BIANCA NICHOLS ([id number])[facility])[address] [place] [address] [place] Sodium [Moles/Vol] 134 mmol/L Low 136-145 [facility] Comment on above: Performed By: #### L AB15 ####Associate Professor Plant Pathology: BIANCA NICHOLS ([id number])[facility])[address] [place] [address] Urea nitrogen [Mass/Vol] 14 mg/dL Normal 9-23 [facility] Comment on above: Performed By: #### L AB15 ####Associate Professor Plant Pathology: BIANCA NICHOLS ([id number])[facility] ([address] Bacteria identified Aer cx N om (Unsp spec)Ordered By: Joy York on 04-25-2025 Gram Stain Result Many Polymorphonuclear leukocytes per low power field Abnormal [facility] Gram Stain Result Negative Abnormal [facility] Gram Stain Result Positive Abnormal [facility] Interpretation and review of laboratory results Abnormal [facility] PBP2A Positive [facility] Basic metabolic 1998 panelon 04-25-2025 Anion gap [Moles/Vol] 7 mmol/L 3 - 13 mmol/L [facility] Calcium [Mass/Vol] 8.2 mg/dL Low 8.8 - 10. 0 mg/dL [facility] Chloride [Moles/Vol] 101 mmol/L 98 - 10 7 mmol/L [facility] CO2 [Moles/Vol] 26 mmol/L 23 - 31 mmol/L [facility] Creatinine [Mass/Vol] 0.73 mg/dL 0.72 - 1.25 mg/dL [facility] GFR/1.73 sq M.predicted (S/P/Bld) [Vol rate/Area] - PINF [facility] Comment on above: Calculation based on the Chronic Kidney Disease Epidemiology Collaboration (CKD-EPI) equation refit without adjustment for race Glucose [Mass/Vol] 213 mg/dL High 82 - 115 mg/dL [facility] Interpretation and review of laboratory results Abnormal [facility] Potassium [Moles/Vol] 4.3 mmol/L 3.5 - 5.1 mmol/L [facility] Comment on above: Plasma potassium leonie ues may be up to 0.5 mmol/L lower than serum values. Sodium [Moles/Vol] 134 mmol/L Low 136 - 145 mmol/L [facility] Urea nitrogen [Mass/Vol] 14 mg/dL 9 - 23 mg/dL [facility] CBC W Auto Differential pane l (Bld)on 04-25-2025 Basophils (Bld) [#/Vol] 0 10*3/uL 0.0 - 0.2 10*3/uL [facility] Basophils/100 WBC (Bld) 0.4 % 0.0 - 2.0 % [facility] Eosinophils (Bld) [#/Vol] 0.1 10*3/uL 0.0 - 0.5 10*3/uL [facility] Eosinophils/100 WBC (Bld) 0.8 % 0.0 - 6.0 % [facility] Erythrocyte distribution width (RBC) [Ratio] 14.8 % 11.5 - 15.0 % [facility] Hematocrit (Bld) [Volume fraction] 32.6 % Low 40.0 - 52.0 % [facility] Hemoglobin (Bld) [Mass/Vol] 10.4 g/dL Low 13.0 - 18.0 g/dL [facility] Immature granulocytes (Bld) [#/Vol] 0 10*3/uL NINF - 0.1 10*3/uL [facility] Immature granulocytes/100 WBC (Bld) 0.4 % 0.0 - 2.0 % [facility] Interpretation and review of laboratory results Abnormal [facility] Lymphocytes (Bld) [#/Vol] 2 10*3/uL 1.0 - 4.3 10*3/uL [facility] Lymphocytes/100 WBC (Bld) 20.7 % 15.0 - 45.0 % [facility] MCH (RBC) [Entitic mass] 28.7 pg 26. 0 - 34.0 pg [facility] MCHC (RBC) [Mass/Vol] 31.9 % 30.5 - 36.0 % [facility] MCV (RBC) [Entitic vol] 90.1 fL 77.0 - 99.0 fL [facility] Monocytes (Bld) [#/Vol] 0.9 10*3/uL 0.0 - 0.9 10*3/uL [facility] Monocytes/100 WBC (Bld) 9.3 % 5.0 - 13.0 % [facility] Neutrophils (Bld) [#/Vol] 6.5 10*3/uL 1.8 - 7.5 10*3/uL [facility] Neutrophils/100 WBC (Bld) 68.4 % 38.0 - 82.0 % [facility] Nucleated RBC/100 WBC (Bld) [Ratio] 0 % [facility] Platelet mean volume (Bld) [Entitic vol] 9.9 fL 9.0 - 12.7 fL [facility] Platelets (Bld) [#/Vol] 421 10*3/uL 140 - 440 10*3/uL [facility] RBC (Bld) [#/Vol] 3.62 10*6/uL Low 4.40 - 5.9 0 10*6/uL [facility] WBC (Bld) [#/Vol] 9.5 10*3/uL 3.6 - 10.7 10*3/uL [facility] CBC WITH AUTO DIFFERENTIALon 04-25-2025 Basophils (Bld) [#/Vol] 0.0 10*3/uL Normal 0.0-0.2 [facility] Comment on above: Performed By: #### L [id number] ####Associate Professor Plant Pathology: BIANCA NICHOLS ([id number])[facility] ([facility])[address] [place] [address] Basophils/100 WBC (Bld) 0.4 % Normal 0.0-2.0 [facility] Comment on above: Performed By: #### L [id number] ####Associate Professor Plant Pathology: BIANCA NICHOLS ([id number])[facility] ([facility])[address] [place] [address] [place] Eosinophils (Bld) [#/Vol] 0.1 10*3/uL Normal 0.0-0.5 [facility] Comment on above: Performed By: #### L [id number] ####Associate Professor Plant Pathology: BIANCA NICHOLS ([id number])[facility] ([facility])[address] [place] [address] Eosinophils/100 WBC (Bld) 0.8 % Normal 0.0-6.0 [facility] Comment on above: Performed By: #### L [id number] ####Associate Professor Plant Pathology: BIANCA NICHOLS ([id number])[facility] ([facility])[address] [place] [address] [place] Erythrocyte distribution width (RBC) [Ratio] 14.8 % Normal 11.5-15.0 [facility] Comment on above: Performed By: #### L [id number] ####Associate Professor Plant Pathology: BIANCA [id number])[facility] ([address] Hematocrit (Bld) [Volume fraction] 32.6 % Low 40.0-52.0 [facility] Comment on above: Performed By: #### L [id number] ####Associate Professor Plant Pathology: BIANCA NICHOLS ([id number])[facility])[address] [place] [address] Hemoglobin (Bld) [Mass/Vol] 10.4 g/dL Low 13.0-18.0 [facility] Comment on above: Performed By: #### L [id number] ####Associate Professor Plant Pathology: BIANCA NICHOLS ([id number])[facility])[address] [place] [address] IMMATURE GRANS % 0.4 % Normal 0.0-2.[address] [facility] Comment on above: Performed By: #### L [id number] ####Associate Professor Plant Pathology: BIANCA NICHOLS ([id number])[facility])[address] [place] [address] IMMATURE GRANS ABSOLUTE 0.0 10*3/uL Normal <0.1 [facility] Comment on above: Performed By: #### L [id number] ####Associate Professor Plant Pathology: BIANCA NICHOLS ([id number])[facility])[address] [place] [address] Lymphocytes (Bld) [#/Vol] 2.0 10*3/uL Normal 1.0-4.3 [facility] Comment on above: Performed By: #### L [id number] ####Associate Professor Plant Pathology: BIANCA NICHOLS ([id number])[facility])[address] [place] [address] Lymphocytes/100 WBC (Bld) 20.7 % Normal 15.0-45.0 [facility] Comment on above: Performed By: #### L [id number] ####Associate Professor Plant Pathology: BIANCA NICHOLS ([id number])[facility])[address] [place] [address] MCH (RBC) [Entitic mass] 28.7 pg Normal 26.0-34.0 [facility] Comment on above: Performed By: #### L [id number] ####Associate Professor Plant Pathology: BIANCA NICHOLS ([id number])[facility])[address] [place] [address] MCHC 31.9 % Normal 30.5-36.0 [facility] Comment on above: Performed By: #### L [id number] ####Associate Professor Plant Pathology: BIANCA NICHOLS ([id number])[facility])[address] [place] [address] MCV (RBC) [Entitic vol] 90.1 fL Normal 77.0-99.0 [facility] Comment on above: Performed By: #### L [id number] ####Associate Professor Plant Pathology: BIANCA NICHOLS ([id number])[facility])[address] [place] [address] Monocytes (Bld) [#/Vol] 0.9 10*3/uL Normal 0.0-0.9 [facility] Comment on above: Performed By: #### L [id number] ####Associate Professor Plant Pathology: BIANCA NICHOLS ([id number])[facility])[address] [place] [address] Monocytes/100 WBC (Bld) 9.3 % Normal 5.0-13.0 [facility] Comment on above: Performed By: #### L [id number] ####Associate Professor Plant Pathology: BIANCA NICHOLS ([id number])[facility])[address] [place] [address] NEUTROPHILS ABSOLUTE 6.5 10*3/uL Normal 1.8-7.5 [facility] Comment on above: Performed By: #### L [id number] ####Associate Professor Plant Pathology: BIANCA NICHOLS ([id number])[facility])[address] [place] [address] Neutrophils/100 WBC (Bld) 68.4 % Normal 38.0-82.0 [facility] Comment on above: Performed By: #### L [id number] ####Associate Professor Plant Pathology: BIANCA [id number])[facility] ([facility])[address] [place] [address] NRBC 0.0 /100 WBCs Normal 0.0-2.0 [facility] Comment on above: Performed By: #### L [id number] ####Associate Professor Plant Pathology: BIANCA NICHOLS ([id number])[facility])[address] [place] [address] Platelet mean volume (Bld) [Entitic vol] 9.9 fL Normal 9.0-12.7 [facility] Comment on above: Performed By: #### L [id number] ####Associate Professor Plant Pathology: BIANCA NICHOLS ([id number])[facility])[address] [place] [address] Platelets (Bld) [#/Vol] 421 10*3/uL Normal 140-440 [facility] Comment on above: Performed By: #### L [id number] ####Associate Professor Plant Pathology: BIANCA NICHOLS ([id number])[facility] ([facility])[address] [place] [address] RBC (Bld) [#/Vol] 3.62 10*6/uL Low 4.40-5.90 [facility] Comment on above: Performed By: #### L [id number] ####Associate Professor Plant Pathology: BIANCA NICHOLS ([id number])[facility])[address] [place] [address] WBC (Bld) [#/Vol] 9.5 10*3/uL Normal 3.6-10.7 [facility] Comment on above: Performed By: #### L [id number] ####Associate Professor Plant Pathology: BIANCA NICHOLS ([id number])[facility])[address] [place] [address] Consulton 04-25-2025 Consult [facility] Wound Care CONSULT Note Anmol Reynolds AGE: 64 y.o. GENDER: male : 1960 Subjective: HISTORY of PRESENT ILLNESS HPI Anmol Salvador Gail is a 64 y.o. male who presents for a wound consult. HPI: Anmol is a 64 y.o. male with past medical history below who presents with chief complaint listed above. Patient sent to [facility] ER [facility] alf staff to leave the patient's wounds on his sacrum were worsening and becoming infected. Patient is a paraplegic for the last 4 years after surgical complication with Dr. Ashley at [facility]. ER workup was significant for [...] effort, no respiratory distress, no cyanosis Sacrum: [id number]. Wound bed with pink tissue noted. Small serosanguinous drainage. Periwound fragile. 04/25/25 Left ischium: [id number]. Wound bed with eschar, slough and red [...] to follow Recommend to follow up at [facility]patient wound care center after [...] and a (more content not included)... Normal [facility] Laboratory - Chemistry and C hemistry - challengeon 04-25-2025 Glucose [Mass/Vol] 220 mg/dL High 70 - 100 mg/dL [facility] Glucose [Mass/Vol] 226 mg/dL High 70 - 100 mg/dL [facility] Glucose [Mass/Vol] 281 mg/dL High 70 - 100 mg/dL [facility] Glucose [Mass/Vol] 187 mg/dL High 70 - 100 mg/dL [facility] Laboratory - Microbiology an d Antimicrobial susceptibilityOrdered By: Joy York on 04-25-2025 Bacteria identified Aer cx Nom (Unsp spec) Moderate enteric gosia present [facility] Bacteria identified Aer cx Nom (Unsp spec) Moderate Staphylococcus aureus Abnormal [facility] Comment on above: Methicillin-resistan t Staphylococcus aureus (MRSA) No Panel Informationon 04-25 Interpretation and review of laboratory results Abnormal [facility] Performed by: [place] [address] CLIA ID: [id number] [facility] Interpretation and review of laboratory results Abnormal [facility] Performed by: [address] [address] CLIA ID: [id number] [facility] Interpretation and review of laboratory results Abnormal [facility] Performed by: [address] [address] CLIA ID: [id number] [facility] Interpretation and review of laboratory results Abnormal [facility] Performed by: [address] [address] CLIA ID: [id number] [facility] No Panel InformationOrdered By: Genaro Kelly on 04-25-2025 Case Report Surgical Pathology Case: [id number] Authorizing Provider: Kaela Durand MD Collected: 04/24/2025 0806 Ordering Location: [facility] MAIN OR Received: 04/24/2025 1209 Pathologist: Genaro Kelly MD PhD Specimen: LEFT ISCHIAL BONE [facility] Work Phone: Clinical Information y7alhEMzFEDblKJcZKS wM MpbeaFjKIVnpBZaS4Biky liYZhrBT0fJE3smPwiqJF vhYObHQHtYyNgd5kzu657 vAUdg9lhYUPJETpyIKBTC Of2iRghQ57ug0E0KxyaR8 xyZWQwXGdyZWVuMFxibHV bJUn5QORqeWAyueBiTdGk JHLuuCYkbPW8HSEfVV7et wnoBFalURymTLUqypO2BZ OjrLZhM6CrVAVqBK7coyi rKKV1DCjwOZNcDWA7VyJd OICyg2Sjqvu2IvPrzWLxj 3DvE2eexhQarKzcnlZiun 9uZVxjbGJyZHJsXGJyZHJ ls16aJMCwIoCuxkTbLfNb zm5xtzPeI8wsphUcYurda iJwtm6pTQodrJNzzhYlgO BwR6zhlRIQdMV3zNBwJ4w 0U9nejMw8ZMQbVOIxsSk0 NTgyMFxwYXJkXGludGJsX TIoLZkrDLExXcQaK7KjNW 61fDHaGBElgMFePL4twCC lfQsehUg8qHXwBB30aKZk IHNpdGUgKEhDQykgLSBNO XEwBYefF1iFQO5aNP3PKR 5lV5MvuVdlziFyrRlcx2b bwGEdi4BtlLAzyIFks4tl gGWiHYU4JKZeJEHcr97xP PRnIlKuwlbpDfVwdn0bqe HeM0uqrpQgglriwlKqur0 uZVxjbGJyZHJiXGJyZHJu n75uLKMbsyHlcLEzoLseo IW0z4beDBUkK1wdrCpKuH T6yCF1ZwBvZ4RlsAh1GGL vFSHduhAdgA21IzbmNARp b2X7ihYdbK8ryMH1AD3lS FSfE7Z4C2UbaTLpNIisv4 7zVEO2VCxwTOGsPMdQRmt lEJMDVFtpRHRdSNsJG9Dq DOCsM20nDQAmxTrghZ87Y jstqo43YFVfjfUmzPYqbH == [employer] [facility] Work Phone: Comment h9uxhNHfPODxqUGsHYWn M NjtsnKtPVFkfPQfF9Xpth kvSGntXM4fZI3goQerhXU vkZSnOLFeBmCmk6jpi360 dIZgk2nlKGAVGHwkNQPPM Gi4qXndS30dx2A6FjelK3 5pmPUkWHE5XKRqJOIrvJQ nBVPoIIH1XXQtcKEvS1tg VPXdFZ8wixxvWJhfGEhnY GAgbGS5CTPkzDAcP5WmFK GqOZraECVihch5BtSuDq7 vdGVyeTcyMFxwYXJkXHBs YWluXGZzMjAgRHIuIFMuI TOqk31qy28uCXItisL2iv MuXHBhcn0= [employer] Work Phone: Disclaimer s0lfbIXgDXNlvGGzGoWu M JAfEJKwa6mxFKFlrZZyHc EwMzNcZnRuYmpcdWMxXGR lRwEfl6tge013tYMkj6gr GPUcQqM1bSLnPTWlJ83lP BFEN757ZRQbMHaju7tzb1 FdMTFhyZRsn6E2AXWOKPe kQQCZIRs2vUrsG82ec5X8 VqbxK2bdIUInTYTrE1JiA I7qXDAdOub6PUH3IBY6CR BcGFAsS5PdDU7yQUVynOV zHJc0e3okpLjqTPJmEIH7 r4iuKVcaunMfGV6ilp5lb Cw4q1rvmeJnQSPyAYTvdL AZFVThE6AfjUsvDx0euTz 1uCdrIsfgECM7Gql8OD4g mk28nwq5sMsaUZBtfecmS xO7BOgzKIKjdzcwCVa6EA sfJXVyrJK8QDWjkMPmH4T lSPOuQZ4eywq1EMR6UEyw ZVBiQkC7WQAbfEYeLXDas CbcGGdns926DNT5CqYmUA 6jC9Sze4O3uO3ltCXbZSZ lpCSaQzFpSJOkls8qjTUc KWnzk4EnAHP7kbC5fRQkz CTlONEmTQ97Yptkj6XhYm ouEGU5USLyepBkg3Nfr8e eZsUrraGkP7qqP7AlFKNx MXNwVOAnEjSjnqGps7Vob 9KwwHYdfBg4i9xxYTCnPA StbPwle5feRWQ7SVLwV7N 7jESas3kfYTgmMFPuzDT5 eeU5HNXwgHTrU9NnkL6wA BTeHO6zeyc1x3wkRTW3GB haHAJjRaP6wyY2DBIgtGF tWMOvqAnyLBxhy052YBD7 DpWxBDJlp5IoR0ShxUjnJ 73lzEaoQ22rYONjkXmxgA 3ofEgxkW1sKzKfCnPgYMp xbFxwbGFpblxmMVxmczE2 UHopbshxRFLuKXkrP8hoL vGlWXLiiMrwPEshw5WfVU PoNFVlNAXmAZevK1juyB1 vsvelQQiyDPLrrAsak9rq GqYjiAE5BL1gizKwIVRxf BgwupB1piRnaNzgnC2rdX 8mwMuniJ5hqUAteCU3hdx sIGluIHNpdHUgaHlicmlk aPmocSccxhphzX3tEGL9e HAtOLL0sHReQEKrMFQuCG MbeU10wi4oyYWogjIfG2K lF2XvoFBttOkoGurfjLGp xMVuXd9ecQNaYG5pTKMte FMzE8FfVW5sPJDajcilCQ IgVGhlIHVzZSBvZiBvbmU qr4ZozG3dNXXcIEPlSI88 ucZewrB5cHZsOSNygcYya GVzdHMgaXMgcmVndWxhdG OwSGAbEUCrTFGcJDx1cLC nw2OfM2fmhKKgfrUgV2Uw yNSeQANRWI9sGFolw0Fmt GQzlWLhr9PiHGXuATCdrZ 1mAXZxTD2rJPQvEObnZWB xwhSmpv0ioyAhTORpGRBz V7ZnkszfdRekhbEvBODyg r8oyrPvDGW9CCDnUYSknM qdtRRvuJVlJFPcntQ4y1Q yVCHhp1NaD0KzwPKyTUQr iRCkOCG0s4GotU2kNWhxg LTtIOFcZA1ccAMbRIWvFC NsZWFyZWQgYnkgdGhlIFV ORYZmm6DjUR0oNPYniMtx UYRgtL5rd7WfJSDzx20hM EZEQSkuIFRoZSBGREEgaG FzIGRldGVybWluZWQgdGh xkPFosTAyQDFbUXKnHA7i FNLhopLqzRVfc0PjyADtg dWzy5YcwrFjZULmOFQ5Gv BccGFyXHBhciBBbGwgaW1 rhY1vp2OlxA5sCTixopMz oLFyVs6zgLImQE0wLOWob mFmZmluIGVtYmVkZGVkIH Vro8X2ZS4aEXDnbu9vedm jxTNkmK7byNSbalRyUV7z JG7dH6J0hGWhFDNnifZkp 9hgTQz4jCZaDRTrxFUcgL FsBadnEYO1HHCtEBG6jlU qqrNoHZWjrRrnfQR1tPVh JSWuVGLcCCLcKF41B3Emm 7VbS3ecFO28JTXuRGMaJB HaglJwk2qhXROzk9xmEWT ysKSrD1YjSSNqhAZrpgge CnXgWYH6CURiJIB1mEGiU FMpA7YstCFdwGBkmM12NW 3dfHI1EG9pCAL4IXzpoF4 wIfMMmG20re0veOX7e0Md PN3mN7FlMACvb7M8hsVtN QOpHB4jmHNdGWTmXOKsfE lkYXRlZCBvbiBkZWNhbGN pStqrDPQ8lKDgtUUuRoVZ FXQ2sLGaHHUmz3JeQEGoS ZYwloCtxwMaYLWmTSJ2cP HrXBIbuOKgl49fS6y7QZ6 bfQpmJXGgzNIkWDQxa9Yn yIKbyYg5kSGfSuLtNRszG SJmLAsbdGb8cGT8BA8dTL GsN0YmV8capTQdJCUmESG egXPodf8whDKvtA== [employer] Work Phone: Gross Description a9spbCZwNBIkwUWbCSCi M QyacaFtOKZddVNvX6Seoa dcBZabPF1nYC2tnZfxtOA pwWHaWVYfCvEaj9dni237 bTPvs4noKIWEKDswSLGNB Tl5fVcbF64ym1O0HtjxQ7 9cwSYoCPY3TRTyVODdzGP zBWInGZX4CKObuTHnD9bn LTEmQE1yarcbMGjzXWkmA SRdiXI5NJHckRXhN0LjHH VyNLpmXXVmbng8YzNvIz7 vdGVyeTcyMFxwYXJkXHBs KDbzYVVcXoBoHoZoFHp5H TAxsI4nKd9feINloD4bsA JyXKgsNLYswVXosYKro7D oaWFsIGJvbmUiIGlzIGEg qBjvuy5bWXOfaW6ogWvdx kDjOuCwr26hFVPuNCDkzQ Yer1LaZWPxUA90SIzjMX2 0QIrmEH1fUEAoZrMtWLza IHNwZWNpbWVuIGlzIGVud JpjFFc1LUQ9Yx2fiLDkDN UyttKyyoTcB5Ntv1M6yYH uRCALq0RcDdPaRj5mGWWq YWwgaXMgbmVlZGVkIGZvc qL1lJLpx8BxI7xmER8fHW BccGFyfQ== [employer]: Pathologist Interpretation Location [facility], [address] [place] [address], [facility] [address], CLIA: [id number]; Joint Commission: HCO [id number]; CAP: [id number] [employer]: Pathology report final diagnosis Narrative b0viuCEiIYBlvCUtCINsI NffcfUgLUPtyQYuH4Kdea msNLtqBX3iFW8mvEndfEN yoZJoDMEnEzTyu6not053 zSGfm8nzQRYTITowKBZTH Dr1oDqmO38cd9I0HpofH6 6xqTSzOMP0TWFyLBAchOK dJXSjSCI9NQHidZAwQ5eb AAHuLO7ezbesBYtxYXegL FFucFG8ECQpjFGrG3ErAZ BqSRqlVZZsdee5GjBnBw7 vdGVyeTcyMFxwYXJkXHBs YWluXGZzMjAgTEVGVCBJU 8PRYOZRSRZSErJeYPANL8 BTWTpccGFyXGVuZGFzaCA qNA9DILGDIPSaR2UIAnDB TUYJE85hLHbSX1GUYAIXO KPEUYMRXH6VTROJOkNOG0 8pN6AkZa4KAQMTMYEHDSA WOcwJE0OILWUQH8OHBOJH I0LTY54TSJrOWVuIZmpfN XJ9 [facility] Work Phone: [facility] [employer] Work Phone: 30on 04-24-2025 30 Problem: Pain [...] and maintained or improved Outcome: Progressing Normal [facility] [id number] 04-24-2025 [id number] Critical access hospital[facility] transportation. SW reviewed chart. Pt is a [facility] resident of [facility]. [place] is responsible for pt transportation for medical appointments. . Normal [facility] BASIC METABOLIC PANELon 07-2 Anion gap [Moles/Vol] 8 mmol/L Normal 3-13 [facility] Comment on above: Performed By: #### L [id number] ####Associate Professor Plant Pathology: BIANCA NICHOLS ([id number])[facility])[address] [place] [address] Calcium [Mass/Vol] 8.4 mg/dL Low 8.8-10.0 [facility] Comment on above: Performed By: #### L [id number] ####Associate Professor Plant Pathology: BIANCA NICHOLS ([id number])[facility] ([facility])[address] [place] [address] [place] Chloride [Moles/Vol] 101 mmol/L Normal 98-107 [facility] Comment on above: Performed By: #### L [id number] ####Associate Professor Plant Pathology: BIANCA NICHOLS ([id number])[facility] ([facility])[address] [place] [address] [place] CO2 [Moles/Vol] 27 mmol/L Normal 23-31 [facility] Comment on above: Performed By: #### L [id number] ####Associate Professor Plant Pathology: BIANCA NICHOLS ([id number])[facility])[address] [place] [address] Creatinine [Mass/Vol] 0.59 mg/dL Low 0.72-1.25 [facility] Comment on above: Performed By: #### L [id number] ####Associate Professor Plant Pathology: BIANCA NICHOLS ([id number])[facility])[address] [place] [address] GLOMERULAR FILTRATION RATE ML/MIN/1.73 SQ M.PREDICTED >90.0 Normal >60.0 [facility] Comment on above: Result Comment: Calc ulation based on the Chronic Kidney Disease Epidemiology Collaboration (CKD-EPI) equation refit without adjustment for race Performed By: #### L [id number] ####Associate Professor Plant Pathology: BIANCA NICHOLS ([id number])[facility] ([facility])[address] [place] [address] Glucose [Mass/Vol] 113 mg/dL Normal 82-115 [facility] Comment on above: Performed By: #### L [id number] ####Associate Professor Plant Pathology: BIANCA NICHOLS ([id number])[facility])[address] [place] [address] Potassium [Moles/Vol] 4.0 mmol/L Normal 3.5-5.1 [facility] Comment on above: Result Comment: [facility] potassium values may be up to 0.5 mmol/L lower than serum values. Performed By: #### L [id number] ####Associate Professor Plant Pathology: BIANCA NICHOLS ([id number])[facility] ([facility])[address] [place] [address] [place] Sodium [Moles/Vol] 136 mmol/L Normal 136-145 [facility] Comment on above: Performed By: #### L [id number] ####Associate Professor Plant Pathology: BIANCA NICHOLS ([id number])[facility] ([facility])[address] [place] [address] Urea nitrogen [Mass/Vol] 7 mg/dL Low 9-23 [facility] Comment on above: Performed By: #### L [id number] ####Associate Professor Plant Pathology: BIANCA NICHOLS ([id number])[facility] ([facility])[address] [place] [address] Basic metabolic 1998 panelon 04-24-2025 Anion gap [Moles/Vol] 8 mmol/L 3 - 13 mmol/L [facility] Calcium [Mass/Vol] 8.4 mg/dL Low 8.8 - 10. 0 mg/dL [facility] Chloride [Moles/Vol] 101 mmol/L 98 - 10 7 mmol/L [facility] CO2 [Moles/Vol] 27 mmol/L 23 - 31 mmol/L [facility] Creatinine [Mass/Vol] 0.59 mg/dL Low 0.72 - 1.25 mg/dL [facility] GFR/1.73 sq M.predicted (S/P/Bld) [Vol rate/Area] - PINF [facility] Comment on above: Calculation based on the Chronic Kidney Disease Epidemiology Collaboration (CKD-EPI) equation refit without adjustment for race Glucose [Mass/Vol] 113 mg/dL 82 - 115 mg/dL [facility] Interpretation and review of laboratory results Abnormal [facility] Potassium [Moles/Vol] 4 mmol/L 3.5 - 5.1 mmol/L [facility] Comment on above: Plasma potassium leonie ues may be up to 0.5 mmol/L lower than serum values. Sodium [Moles/Vol] 136 mmol/L 136 - 145 mmol/L [facility] Urea nitrogen [Mass/Vol] 7 mg/dL Low 9 - 23 mg/dL [facility] CBC W Auto Differential pane l (Bld)on 04-24-2025 Basophils (Bld) [#/Vol] 0.1 10*3/uL 0.0 - 0.2 10*3/uL [facility] Basophils/100 WBC (Bld) 0.6 % 0.0 - 2.0 % [facility] Eosinophils (Bld) [#/Vol] 0.4 10*3/uL 0.0 - 0.5 10*3/uL [facility] Eosinophils/100 WBC (Bld) 4 % 0.0 - 6.0 % [facility] Erythrocyte distribution width (RBC) [Ratio] 14.9 % 11.5 - 15.0 % [facility] Hematocrit (Bld) [Volume fraction] 32.8 % Low 40.0 - 52.0 % [facility] Hemoglobin (Bld) [Mass/Vol] 10.6 g/dL Low 13.0 - 18.0 g/dL [facility] Immature granulocytes (Bld) [#/Vol] 0 10*3/uL NINF - 0.1 10*3/uL [facility] Immature granulocytes/100 WBC (Bld) 0.4 % 0.0 - 2.0 % [facility] Interpretation and review of laboratory results Abnormal [facility] Lymphocytes (Bld) [#/Vol] 2.2 10*3/uL 1.0 - 4.3 10*3/uL [facility] Lymphocytes/100 WBC (Bld) 23.9 % 15.0 - 45.0 % [facility] MCH (RBC) [Entitic mass] 28.8 pg 26. 0 - 34.0 pg [facility] MCHC (RBC) [Mass/Vol] 32.3 % 30.5 - 36.0 % [facility] MCV (RBC) [Entitic vol] 89.1 fL 77.0 - 99.0 fL [facility] Monocytes (Bld) [#/Vol] 0.7 10*3/uL 0.0 - 0.9 10*3/uL [facility] Monocytes/100 WBC (Bld) 8 % 5.0 - 13.0 % [facility] Neutrophils (Bld) [#/Vol] 5.9 10*3/uL 1.8 - 7.5 10*3/uL [facility] Neutrophils/100 WBC (Bld) 63.1 % 38.0 - 82.0 % [facility] Nucleated RBC/100 WBC (Bld) [Ratio] 0 % [facility] Platelet mean volume (Bld) [Entitic vol] 9.8 fL 9.0 - 12.7 fL [facility] Platelets (Bld) [#/Vol] 367 10*3/uL 140 - 440 10*3/uL [facility] RBC (Bld) [#/Vol] 3.68 10*6/uL Low 4.40 - 5.9 0 10*6/uL [facility] WBC (Bld) [#/Vol] 9.3 10*3/uL 3.6 - 10.7 10*3/uL [facility] CBC WITH AUTO DIFFERENTIALon 04-24-2025 Basophils (Bld) [#/Vol] 0.1 10*3/uL Normal 0.0-0.2 [facility] Comment on above: Performed By: #### L [id number] ####Associate Professor Plant Pathology: BIANCA NICHOLS ([id number])[facility] ([facility])[address] [place] [address] Basophils/100 WBC (Bld) 0.6 % Normal 0.0-2.0 [facility] Comment on above: Performed By: #### L [id number] ####Associate Professor Plant Pathology: BIANCA NICHOLS ([id number])[facility])[address] [place] [address] Eosinophils (Bld) [#/Vol] 0.4 10*3/uL Normal 0.0-0.5 [facility] Comment on above: Performed By: #### L [id number] ####Associate Professor Plant Pathology: BIANCA NICHOLS ([id number])[facility] ([facility])[address] [place] [address] Eosinophils/100 WBC (Bld) 4.0 % Normal 0.0-6.0 [facility] Comment on above: Performed By: #### L [id number] ####Associate Professor Plant Pathology: BIANCA NICHOLS ([id number])[facility])[address] [place] [address] Erythrocyte distribution width (RBC) [Ratio] 14.9 % Normal 11.5-15.0 [facility] Comment on above: Performed By: #### L [id number] ####Associate Professor Plant Pathology: BIANCA NICHOLS ([id number])[facility] ([facility])[address] [place] [address] Hematocrit (Bld) [Volume fraction] 32.8 % Low 40.0-52.0 [facility] Comment on above: Performed By: #### L [id number] ####Associate Professor Plant Pathology: BIANCA NICHOLS ([id number])[facility])[address] [place] [address] Hemoglobin (Bld) [Mass/Vol] 10.6 g/dL Low 13.0-18.0 [facility] Comment on above: Performed By: #### L [id number] ####Associate Professor Plant Pathology: BIANCA NICHOLS ([id number])[facility])[address] [place] [address] IMMATURE GRANS % 0.4 % Normal 0.0-2.[address] [facility] Comment on above: Performed By: #### L [id number] ####Associate Professor Plant Pathology: BIANCA NICHOLS ([id number])[address] IMMATURE GRANS ABSOLUTE 0.0 10*3/uL Normal <0.1 [facility] Comment on above: Performed By: #### L [id number] ####Associate Professor Plant Pathology: BIANCA NICHOLS ([id number])[address] Lymphocytes (Bld) [#/Vol] 2.2 10*3/uL Normal 1.0-4.3 [facility] Comment on above: Performed By: #### L [id number] ####Associate Professor Plant Pathology: BIANCA NICHOLS ([id number])[address] Lymphocytes/100 WBC (Bld) 23.9 % Normal 15.0-45.0 [facility] Comment on above: Performed By: #### L [id number] ####Associate Professor Plant Pathology: BIANCA NICHOLS ([id number])[address] MCH (RBC) [Entitic mass] 28.8 pg Normal 26.0-34.0 [facility] Comment on above: Performed By: #### L [id number] ####Associate Professor Plant Pathology: BIANCA NICHOLS ([id number])[address] MCHC 32.3 % Normal 30.5-36.0 [facility] Comment on above: Performed By: #### L [id number] ####Associate Professor Plant Pathology: BIANCA NICHOLS ([id number])[facility] ([facility])[address] [place] [address] MCV (RBC) [Entitic vol] 89.1 fL Normal 77.0-99.0 [facility] Comment on above: Performed By: #### L [id number] ####Associate Professor Plant Pathology: BIANCA NICHOLS ([id number])[facility] ([facility])[address] [place] [address] Monocytes (Bld) [#/Vol] 0.7 10*3/uL Normal 0.0-0.9 [facility] Comment on above: Performed By: #### L [id number] ####Associate Professor Plant Pathology: BIANCA NICHOLS ([id number])[facility] ([facility])[address] [place] [address] Monocytes/100 WBC (Bld) 8.0 % Normal 5.0-13.0 [facility] Comment on above: Performed By: #### L [id number] ####Associate Professor Plant Pathology: BIANCA NICHOLS ([id number])[facility] ([facility])[address] [place] [address] NEUTROPHILS ABSOLUTE 5.9 10*3/uL Normal 1.8-7.5 [facility] Comment on above: Performed By: #### L [id number] ####Associate Professor Plant Pathology: BIANCA NICHOLS ([id number])[facility] ([facility])[address] [place] [address] Neutrophils/100 WBC (Bld) 63.1 % Normal 38.0-82.0 [facility] Comment on above: Performed By: #### L [id number] ####Associate Professor Plant Pathology: BIANCA NICHOLS ([id number])[facility] ([facility])[address] [place] [address] NRBC 0.0 /100 WBCs Normal 0.0-2.0 [facility] Comment on above: Performed By: #### L [id number] ####Associate Professor Plant Pathology: BIANCA NICHOLS ([id number])[facility] ([facility])[address] [place] [address] Platelet mean volume (Bld) [Entitic vol] 9.8 fL Normal 9.0-12.7 [facility] Comment on above: Performed By: #### L [id number] ####Associate Professor Plant Pathology: BIANCA NICHOLS ([id number])[facility])[address] [place] [address] Platelets (Bld) [#/Vol] 367 10*3/uL Normal 140-440 [facility] Comment on above: Performed By: #### L [id number] ####Associate Professor Plant Pathology: BIANCA NICHOLS ([id number])[facility])[address] [place] [address] RBC (Bld) [#/Vol] 3.68 10*6/uL Low 4.40-5.90 [facility] Comment on above: Performed By: #### L [id number] ####Associate Professor Plant Pathology: BIANCA NICHOLS ([id number])[facility] ([facility])[address] [place] [address] WBC (Bld) [#/Vol] 9.3 10*3/uL Normal 3.6-10.7 [facility] Comment on above: Performed By: #### L [id number] ####Associate Professor Plant Pathology: BIANCA NICHOLS ([id number])[facility])[address] [place] [address] CULTURE ANAEROBICon 04-24-20 CULTURE ANAEROBIC ANAEROBIC CULTURE Reference No growth at 5 days [ S = SUSCEPTIBLE R = RESISTANT I = INTERMEDIATE S-DD = Susceptible-dose dependent NS = Non-susceptible NO = No Interpretation ] Normal [facility] Comment on above: Performed By: #### L [id number] #### Associate Professor Plant Pathology: BIANCA NICHOLS ([id number]) [facility]) [address] [place] [address] CULTURE ANAEROBIC ANAEROBIC CULTURE Reference Mixed aerobic and anaerobic bacteria present. CLOSTRIDIUM RAMOSUM Few Clostridium ramosum (A) [ S = SUSCEPTIBLE R = RESISTANT I = INTERMEDIATE S-DD = Susceptible-dose dependent NS = Non-susceptible NO = No Interpretation ] Normal [facility] Comment on above: Performed By: #### L [id number] #### Associate Professor Plant Pathology: BIANCA NICHOLS ([id number]) [address] CULTURE, AEROBIC BACTERIA WI GRAM STAINon [...] Non-susceptible NO = No Interpretation ] Normal [facility] Comment on above: Performed By: #### L [id number] #### Associate Professor Plant Pathology: BIANCA NICHOLS ([id number]) [address] CULTURE, AEROBIC BACTERIA WITH GRAM STAIN [...] Non-susceptible NO = No Interpretation ] Normal [facility] Comment on above: Performed By: #### L [id number] #### Associate Professor Plant Pathology: BIANCA NICHOLS ([id number]) [facility] ([facility]) [address] [place] [address] Laboratory - Chemistry and C hemistry - challengeon 04-24-2025 Glucose [Mass/Vol] 348 mg/dL High 70 - 100 mg/dL [facility] Glucose [Mass/Vol] 407 mg/dL High 70 - 100 mg/dL [facility] Glucose [Mass/Vol] 259 mg/dL High 70 - 100 mg/dL [facility] Glucose [Mass/Vol] 135 mg/dL High 70 - 100 mg/dL [facility] Glucose [Mass/Vol] 126 mg/dL High 70 - 100 mg/dL [facility] Laboratory - Drug toxicology on 04-24-2025 Vancomycin trough [Mass/Vol] 12 ug/mL [facility] No Panel Informationon 04-24 Interpretation and review of laboratory results Abnormal [facility] Performed by: [address] [address] CLIA ID: [id number] [facility] Interpretation and review of laboratory results Abnormal [facility] Performed by: [address] [address] CLIA ID: [id number] [facility] Interpretation and review of laboratory results Abnormal [facility] Performed by: [address] [address] CLIA ID: [id number] [facility] Interpretation and review of laboratory results Abnormal [facility] Performed by: [address] [address] CLIA ID: [id number] [facility] Interpretation and review of laboratory results Abnormal [facility] Performed by: [address] [address] CLIA ID: [id number] [facility] Nursing Noteon 04-24-2025 Nursing Note Patient states nobod y here to update Normal [facility] Op Noteon 04-24-2025 Op Note - Attestation signed by Kaela Durand MD at 04/26/2025 4:55 PM I attest that I was present and supervised the entire procedure. I agree with the operative details as documented in the resident's note. Excisional debridement of necrotic ischial wound, total wound measurement 7 x 4 cm = 28 cm2 [CPT 28596, 26041] Open biopsy of left ischium [CPT 94635] This note is electronically signed by: Kaela [...] achieved with bovie electrocautery. Two pieces of Texline patch were placed in the wound bed. Betadine soak Kerlix was then packed in the wound. Dressings were applied overtop. The sponge, instrument and needle counts were correct at the end of the case. The patient was extubated and transferred to PACU in stable condition. 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 Nurse states she ordered [...] (kg): 82.41 kg Total Energy Requirements (kcals/day): 3396-1911 (25-30 kcals/kg) Weight Used for Protein Requirements: [...] MAP (mmHg): (more content not included)... Normal [facility] Progress Note Patient out of room at time of visit Wound care to follow up at a later time JOE Diaz CNP Normal [facility] Progress Note - Attestation signed by [...] MD Division of Trauma Department of Surgery [facility] [1] Patient Active Problem List [...] s/p surgical complication with Dr. Ashley at [facility], HLD, HTN, MDD, OA, a-fib on eliquis, chronic sacral wounds who presents from his [facility] after he states the nurses have become [...] 24 hours) (more content not included)... Normal [facility] VANCOMYCIN, AUC TIMED DOSING on 04-24-2025 VANCOMYCIN, AUC 12.0 ug/mL Normal [facility] Comment on above: Result Comment: [facility] COMMENTS: Please draw random level at least >2 hours after the end of the last vancomycin infusion, or 30-minutes before next infusion. Toxicity is seen at concentrations >80-100 ug/mL Therapeutic (Peak) range: 20-40 Therapeutic (Trough) range: 5-10 Performed By: #### L [id number] ####Associate Professor Plant Pathology: BIANCA NICHOLS ([id number])[facility] ([address] Vancomycin trough [Mass/Vol] on 04-24-2025 Toxicity [...] and maintained or improved Outcome: Progressing Normal [facility] 30 Problem: Pain - Adul t [...] monitored and maintained or improved Outcome: Progressing [facility] BASIC METABOLIC PANELon 07-2 Anion gap [Moles/Vol] 7 mmol/L Normal 3-13 [facility] Comment on above: Performed By: #### L [id number] ####Associate Professor Plant Pathology: BIANCA NICHOLS ([id number])[facility] ([facility])[address] [place] [address] Calcium [Mass/Vol] 8.1 mg/dL Low 8.8-10.0 [facility] Comment on above: Performed By: #### L [id number] ####Associate Professor Plant Pathology: BIANCA NICHOLS ([id number])[facility] ([facility])[address] [place] [address] Chloride [Moles/Vol] 105 mmol/L Normal 98-107 [facility] Comment on above: Performed By: #### L [id number] ####Associate Professor Plant Pathology: BIANCA NICHOLS ([id number])[facility] ([facility])[address] [place] [address] CO2 [Moles/Vol] 21 mmol/L Low 23-31 [facility] Comment on above: Performed By: #### L [id number] ####Associate Professor Plant Pathology: BIANCA NICHOLS ([id number])[facility] ([facility])[address] [place] [address] Creatinine [Mass/Vol] 0.54 mg/dL Low 0.72-1.25 [facility] Comment on above: Performed By: #### L [id number] ####Associate Professor Plant Pathology: BIANCA NICHOLS ([id number])[facility])[address] [place] [address] GLOMERULAR FILTRATION RATE ML/MIN/1.73 SQ M.PREDICTED >90.0 Normal >60.0 [facility] Comment on above: Result Comment: Calc ulation based on the Chronic Kidney Disease Epidemiology Collaboration (CKD-EPI) equation refit without adjustment for race Performed By: #### L [id number] ####Associate Professor Plant Pathology: BIANCA NICHOLS ([id number])[facility] ([facility])[address] [place] [address] Glucose [Mass/Vol] 133 mg/dL High 82-115 [facility] Comment on above: Performed By: #### L [id number] ####Associate Professor Plant Pathology: BIANCA NICHOLS ([id number])[facility] ([facility])[address] [place] [address] Potassium [Moles/Vol] 3.8 mmol/L Normal 3.5-5.1 [facility] Comment on above: Result Comment: [facility] potassium values may be up to 0.5 mmol/L lower than serum values. Performed By: #### L [id number] ####Associate Professor Plant Pathology: BIANCA NICHOLS ([id number])[facility] ([facility])[address] [place] [address] Sodium [Moles/Vol] 133 mmol/L Low 136-145 [facility] Comment on above: Performed By: #### L [id number] ####Associate Professor Plant Pathology: BIANCA NICHOLS ([id number])[facility] ([facility])[address] [place] [address] Urea nitrogen [Mass/Vol] 8 mg/dL Low 9-23 [facility] Comment on above: Performed By: #### L [id number] ####Associate Professor Plant Pathology: BIANCA NICHOLS ([id number])[facility] ([facility])[address] [place] [address] Basic metabolic 1998 panelon 04-23-2025 Anion gap [Moles/Vol] 7 mmol/L 3 - 13 mmol/L [facility] Calcium [Mass/Vol] 8.1 mg/dL Low 8.8 - 10. 0 mg/dL [facility] Chloride [Moles/Vol] 105 mmol/L 98 - 10 7 mmol/L [facility] CO2 [Moles/Vol] 21 mmol/L Low 23 - 31 mmol/L [facility] Creatinine [Mass/Vol] 0.54 mg/dL Low 0.72 - 1.25 mg/dL [facility] GFR/1.73 sq M.predicted (S/P/Bld) [Vol rate/Area] - PINF [facility] Comment on above: Calculation based on the Chronic Kidney Disease Epidemiology Collaboration (CKD-EPI) equation refit without adjustment for race Glucose [Mass/Vol] 133 mg/dL High 82 - 115 mg/dL [facility] Interpretation and review of laboratory results Abnormal [facility] Potassium [Moles/Vol] 3.8 mmol/L 3.5 - 5.1 mmol/L [facility] Comment on above: Plasma potassium leonie ues may be up to 0.5 mmol/L lower than serum values. Sodium [Moles/Vol] 133 mmol/L Low 136 - 145 mmol/L [facility] Urea nitrogen [Mass/Vol] 8 mg/dL Low 9 - 23 mg/dL [facility] CBC W Auto Differential pane l (Bld)on 04-23-2025 Basophils (Bld) [#/Vol] 0.1 10*3/uL 0.0 - 0.2 10*3/uL [facility] Basophils/100 WBC (Bld) 0.5 % 0.0 - 2.0 % [facility] Eosinophils (Bld) [#/Vol] 0.3 10*3/uL 0.0 - 0.5 10*3/uL [facility] Eosinophils/100 WBC (Bld) 3.6 % 0.0 - 6.0 % [facility] Erythrocyte distribution width (RBC) [Ratio] 14.9 % 11.5 - 15.0 % [facility] Hematocrit (Bld) [Volume fraction] 30.7 % Low 40.0 - 52.0 % [facility] Hemoglobin (Bld) [Mass/Vol] 9.9 g/dL Low 13.0 - 18.0 g/dL [facility] Immature granulocytes (Bld) [#/Vol] 0 10*3/uL NINF - 0.1 10*3/uL [facility] Immature granulocytes/100 WBC (Bld) 0.4 % 0.0 - 2.0 % [facility] Interpretation and review of laboratory results Abnormal [facility] Lymphocytes (Bld) [#/Vol] 2.2 10*3/uL 1.0 - 4.3 10*3/uL [facility] Lymphocytes/100 WBC (Bld) 23.6 % 15.0 - 45.0 % [facility] MCH (RBC) [Entitic mass] 28.5 pg 26. 0 - 34.0 pg [facility] MCHC (RBC) [Mass/Vol] 32.2 % 30.5 - 36.0 % [facility] MCV (RBC) [Entitic vol] 88.5 fL 77.0 - 99.0 fL [facility] Monocytes (Bld) [#/Vol] 0.8 10*3/uL 0.0 - 0.9 10*3/uL [facility] Monocytes/100 WBC (Bld) 8.7 % 5.0 - 13.0 % [facility] Neutrophils (Bld) [#/Vol] 5.9 10*3/uL 1.8 - 7.5 10*3/uL [facility] Neutrophils/100 WBC (Bld) 63.2 % 38.0 - 82.0 % [facility] Nucleated RBC/100 WBC (Bld) [Ratio] 0 % [facility] Platelet mean volume (Bld) [Entitic vol] 9.7 fL 9.0 - 12.7 fL [facility] Platelets (Bld) [#/Vol] 352 10*3/uL 140 - 440 10*3/uL [facility] RBC (Bld) [#/Vol] 3.47 10*6/uL Low 4.40 - 5.9 0 10*6/uL [facility] WBC (Bld) [#/Vol] 9.4 10*3/uL 3.6 - 10.7 10*3/uL [facility] CBC WITH AUTO DIFFERENTIALon 04-23-2025 Basophils (Bld) [#/Vol] 0.1 10*3/uL Normal 0.0-0.2 [facility] Comment on above: Performed By: #### L [id number] ####Associate Professor Plant Pathology: BIANCA [id number])[address] Basophils/100 WBC (Bld) 0.5 % Normal 0.0-2.0 [facility] Comment on above: Performed By: #### L [id number] ####Associate Professor Plant Pathology: BIANCA [id number])[address] Eosinophils (Bld) [#/Vol] 0.3 10*3/uL Normal 0.0-0.5 [facility] Comment on above: Performed By: #### L [id number] ####Associate Professor Plant Pathology: BIANCA [id number])[facility])[address] [place] [address] Eosinophils/100 WBC (Bld) 3.6 % Normal 0.0-6.0 [facility] Comment on above: Performed By: #### L [id number] ####Associate Professor Plant Pathology: BIANCA NICHOLS ([id number])[facility])[address] [place] [address] Erythrocyte distribution width (RBC) [Ratio] 14.9 % Normal 11.5-15.0 [facility] Comment on above: Performed By: #### L [id number] ####Associate Professor Plant Pathology: BIANCA NICHOLS ([id number])[facility])[address] [place] [address] Hematocrit (Bld) [Volume fraction] 30.7 % Low 40.0-52.0 [facility] Comment on above: Performed By: #### L [id number] ####Associate Professor Plant Pathology: BIANCA NICHOLS ([id number])[facility])[address] [place] [address] Hemoglobin (Bld) [Mass/Vol] 9.9 g/dL Low 13.0-18.0 [facility] Comment on above: Performed By: #### L [id number] ####Associate Professor Plant Pathology: BIANCA NICHOLS ([id number])[facility])[address] [place] [address] IMMATURE GRANS % 0.4 % Normal 0.0-2.[address] [facility] Comment on above: Performed By: #### L [id number] ####Associate Professor Plant Pathology: BIANCA NICHOLS ([id number])[facility])[address] [place] [address] IMMATURE GRANS ABSOLUTE 0.0 10*3/uL Normal <0.1 [facility] Comment on above: Performed By: #### L [id number] ####Associate Professor Plant Pathology: BIANCA NICHOLS ([id number])[facility])[address] [place] [address] [place] Lymphocytes (Bld) [#/Vol] 2.2 10*3/uL Normal 1.0-4.3 [facility] Comment on above: Performed By: #### L [id number] ####Associate Professor Plant Pathology: BIANCA NICHOLS ([id number])[facility])[address] [place] [address] Lymphocytes/100 WBC (Bld) 23.6 % Normal 15.0-45.0 [facility] Comment on above: Performed By: #### L [id number] ####Associate Professor Plant Pathology: BIANCA NICHOLS ([id number])[facility])[address] [place] [address] MCH (RBC) [Entitic mass] 28.5 pg Normal 26.0-34.0 [facility] Comment on above: Performed By: #### L [id number] ####Associate Professor Plant Pathology: BIANCA NICHOLS ([id number])[facility])[address] [place] [address] MCHC 32.2 % Normal 30.5-36.0 [facility] Comment on above: Performed By: #### L [id number] ####Associate Professor Plant Pathology: BIANCA NICHOLS ([id number])[facility])[address] [place] [address] MCV (RBC) [Entitic vol] 88.5 fL Normal 77.0-99.0 [facility] Comment on above: Performed By: #### L [id number] ####Associate Professor Plant Pathology: BIANCA NICHOLS ([id number])[facility])[address] [place] [address] Monocytes (Bld) [#/Vol] 0.8 10*3/uL Normal 0.0-0.9 [facility] Comment on above: Performed By: #### L [id number] ####Associate Professor Plant Pathology: BIANCA NICHOLS ([id number])[facility])[address] [place] [address] Monocytes/100 WBC (Bld) 8.7 % Normal 5.0-13.0 [facility] Comment on above: Performed By: #### L [id number] ####Associate Professor Plant Pathology: BIANCA NICHOLS ([id number])[facility] ([facility])[address] [place] [address] NEUTROPHILS ABSOLUTE 5.9 10*3/uL Normal 1.8-7.5 [facility] Comment on above: Performed By: #### L [id number] ####Associate Professor Plant Pathology: BIANCA NICHOLS ([id number])[facility] ([facility])[address] [place] [address] Neutrophils/100 WBC (Bld) 63.2 % Normal 38.0-82.0 [facility] Comment on above: Performed By: #### L [id number] ####Associate Professor Plant Pathology: BIANCA NICHOLS ([id number])[facility] ([facility])[address] [place] [address] NRBC 0.0 /100 WBCs Normal 0.0-2.0 [facility] Comment on above: Performed By: #### L [id number] ####Associate Professor Plant Pathology: BIANCA NICHOLS ([id number])[facility] ([facility])[address] [place] [address] Platelet mean volume (Bld) [Entitic vol] 9.7 fL Normal 9.0-12.7 [facility] Comment on above: Performed By: #### L [id number] ####Associate Professor Plant Pathology: BIANCA NICHOLS ([id number])[facility] ([facility])[address] [place] [address] Platelets (Bld) [#/Vol] 352 10*3/uL Normal 140-440 [facility] Comment on above: Performed By: #### L [id number] ####Associate Professor Plant Pathology: BIANCA NICHOLS ([id number])[facility] ([facility])[address] [place] [address] RBC (Bld) [#/Vol] 3.47 10*6/uL Low 4.40-5.90 [facility] Comment on above: Performed By: #### L [id number] ####Associate Professor Plant Pathology: BIANCA NICHOLS ([id number])[facility])[address] [place] [address] WBC (Bld) [#/Vol] 9.4 10*3/uL Normal 3.6-10.7 [facility] Comment on above: Performed By: #### L [id number] ####Associate Professor Plant Pathology: BIANCA NICHOLS ([id number])[facility] ([facility])[address] [place] [address] Laboratory - Chemistry and C hemistry - challengeon 04-23-2025 Glucose [Mass/Vol] 189 mg/dL High 70 - 100 mg/dL [facility] Glucose [Mass/Vol] 119 mg/dL High 70 - 100 mg/dL [facility] Glucose [Mass/Vol] 231 mg/dL High 70 - 100 mg/dL [facility] Glucose [Mass/Vol] 217 mg/dL High 70 - 100 mg/dL [facility] No Panel Informationon 04-23 Interpretation and review of laboratory results Abnormal [facility] Performed by: [place] [address] CLIA ID: [id number] [facility] Interpretation and review of laboratory results Abnormal [facility] Performed by: [place] [address] CLIA ID: [id number] [facility] Interpretation and review of laboratory results Abnormal [facility] Performed by: [place] [address] CLIA ID: [id number] [facility] Interpretation and review of laboratory results Abnormal [facility] Performed by: [place] [address] CLIA ID: [id number] [facility] 30on 04-22-2025 30 Problem: Pain - [...] and maintained or improved Outcome: Progressing Normal [facility] 30 Problem: Pain - Adul t [...] monitored and maintained or improved Outcome: Progressing [facility] 36on 04-22-2025 36 Name of Caller: Milady Contact Physician requesting Consult: Alberto Boogie AALIYAH / attending provider when ordered Dr. Georgette Bueno [phone] Patient Location (facility name, room, bed number): [facility] Room 465B Patient Diagnosis/Reason for Consult: Wound infection, on Cefepime Provider being paged: Dr. Castillo Time page was sent: 8:29 AM Department of provider being paged: Infectious Disease Page Content: Received a call from [address] and spoke to Milady [phone] she was asked to send out a consult from Alberto Boogie AALIYAH / attending provider when ordered Dr. Georgette Bueno [phone], is requesting a consult. Information that was provided is: wound infection, on cefepime. PT in [facility] Room 465 B Message sent via Secure Chat [facility] CT PELVIS W IV CONTRASTon CT PELVIS W IV CONTRAST Patient Name: ANMOL DRISCOLL : 1960 [id number] Exam Date/Time: 04/22/2025 00:01 Procedure: CT PELVIS [...] Electronically Signed Date/Time: 04/22/2025 12:31 AM EDT [facility] CT Pelvis W contrast Poli 1. Findings [...] Electronically Signed Date/Time: 04/22/2025 12:31 AM T [facility] Patient Name: ANMOL REYNOLDS : [...] gluteus muscles, and hip muscles (paralysis patient). 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 History of Present Illness: 64 M with h/o MRSA lumbar epidural abscess from 2021, s/p decompression and fusion, but left paraplegic with neurogenic bladder. Recent hospitlaizaitons for PNA as well as [facility] UTI/ sepsis recently at [facility]. He had a sacral decubitus ulcer for years, was already improving but worsened since most recent prolonged hospitalization once more in February 2025. Buttock ulcer developed that time as well. Patient stabilized, completed IV antibiotics, and was doing well except at [facility] increased concern for worsening wound infection, [...] Resource Strain: Low Risk (04/24/2023) Received from [facility] Overall Financial Resource Strain (CARDIA) Difficulty [...] atrophy to (more content not included)... Normal [facility] Consult - Attestation signed by Meliton [...] appropriate exam and evaluation Meliton Carrero MD, [facility] Trauma, Surgical Critical Care & Acute Care Surgery Division of Trauma Department of Surgery [facility] [1] Patient Active Problem List [...] Department of General Surgery Surgical Service - [facility] Resident Consult Note 04/22/2025 CHIEF COMPLAINT: Chief Complaint Patient presents with Wound Infection Per EMS pt was sent here from the [place] for wound infections. Pt has two wound [...] s/p surgical complication with Dr. Ashley at [facility], HLD, HTN, MDD, OA, a-fib on eliquis, chronic sacral wounds who presents from his [facility] after he states the nurses have become [...] Labs reviewed signific (more content not included)... [facility] Consult Pharmacy Managed Vancomycin Dosing Service Consult [...] creatinine, and vancomycin levels interfaced automatically to [facility] and data has been analyzed and interpreted. [...] DATE: 04/22/25 TIME: 2:39 AM Nina Workman [facility] Clinical Pharmacist Available via Secure Chat Normal [facility] Laboratory - Chemistry and C hemistry - challengeon 04-22-2025 Glucose [Mass/Vol] 157 mg/dL High 70 - 100 mg/dL [facility] Glucose [Mass/Vol] 250 mg/dL High 70 - 100 mg/dL [facility] Glucose [Mass/Vol] 356 mg/dL High 70 - 100 mg/dL [facility] Glucose [Mass/Vol] 277 mg/dL High 70 - 100 mg/dL [facility] Average glucose Estimated from glycated hemoglobin (Bld) [Mass/Vol] 180 mg/dL [facility] Laboratory - Drug toxicology on 04-22-2025 Vancomycin trough [Mass/Vol] 12.4 ug/mL [facility] Laboratory - Hematology and Cell countson 04-22-2025 HbA1c (Bld) [Mass fraction] 7.9 % High [facility] Comment on above: Normal less than 5.7 % Prediabetes 5.7% to 6.4% Diabetes 6.5% or higher --HgbA1C levels may not be accurate in patients who have renal disease, received recent blood transfusions, are anemic, or who have dyshemoglobinemia. No Panel Informationon 04-22 Interpretation and review of laboratory results Abnormal [facility] Performed by: [place] [id number] CLIA ID: [id number] [facility] Interpretation and review of laboratory results Abnormal [facility] Performed by: [address] [address] CLIA ID: [id number] [facility] Interpretation and review of laboratory results Abnormal [facility] Performed by: [facility], [address] [place] [address] CLIA ID: [id number] [facility] Interpretation and review of laboratory results Abnormal [facility] Performed by: [facility], [address] [place] [address] CLIA ID: [id number] [facility] Interpretation and review of laboratory results Abnormal [facility] HbA1c values of 5.7-6.4 percent indicate an increased risk for developing diabetes mellitus. HbA1c values greater than or equal to 6.5 percent are diagnostic of diabetes mellitus. For diagnosis of diabetes in individuals without unequivocal hyperglycemia, results should be confirmed by repeat testing. [facility] VANCOMYCIN, AUC TIMED DOSING on 04-22-2025 VANCOMYCIN, AUC 12.4 ug/mL [facility] Comment on above: Result Comment: [facility] COMMENTS: Please draw random level at least >2 hours after the end of the last vancomycin infusion, or 30-minutes before next infusion. Toxicity is seen at concentrations >80-100 ug/mL Therapeutic (Peak) range: 20-40 Therapeutic (Trough) range: 5-10 Performed By: #### L [id number] #### Associate Professor Plant Pathology: BIANCA NICHOLS ([id number]) [facility] ([facility]) [address] [place] [address] Vancomycin trough [Mass/Vol] on 04-22-2025 Toxicity is seen at concentrations >80-100 ug/mL Therapeutic (Peak) range: 20-40 Therapeutic (Trough) range: 5-10 [facility] Wound Cultureon 04-22-2025 WC L BUTTOCKS Wound Culture Copy of report sent to Infection Control Printer [id number] 04/20/25 0714 [facility]. Meth. resistant Staph. aureus Amount Growth [...] Islt SYN-S S Vancomycin Islt HARINDER <=0.5 [facility] Comment on above: Performed By: #### L 101.9900, L100.0500, L500.4050, L501.6710 #### [facility] [address] [facility] [place], [address] BLOOD CULTUREon 04-21-2025 Bacteria identified Cx Nom (Bld) BLOOD CULTURE Reference No growth at 5 days ORDER COMMENTS: Blood Collection Site: Left PICC Purple Lumen [ S = SUSCEPTIBLE R = RESISTANT I = INTERMEDIATE S-DD = Susceptible-dose dependent NS = Non-susceptible NO = No Interpretation ] [facility] Comment on above: Performed By: #### L [id number] #### Associate Professor Plant Pathology: BIANCA NICHOLS ([id number]) [facility] ([facility]) [address] [place] [address] Bacteria identified Cx Nom (Bld) BLOOD CULTURE Reference No growth at 5 days ORDER COMMENTS: Blood Collection Site: Right Forearm [ S = SUSCEPTIBLE R = RESISTANT I = INTERMEDIATE S-DD = Susceptible-dose dependent NS = Non-susceptible NO = No Interpretation ] Normal [facility] Comment on above: Performed By: #### L [id number] #### Associate Professor Plant Pathology: BIANCA NICHOLS ([id number]) [facility] ([facility]) [address] [place] [address] CBC W Auto Differential pane l (Bld)on 04-21-2025 Basophils (Bld) [#/Vol] 0.1 10*3/uL 0.0 - 0.2 10*3/uL [facility] Basophils/100 WBC (Bld) 0.6 % 0.0 - 2.0 % [facility] Eosinophils (Bld) [#/Vol] 0.3 10*3/uL 0.0 - 0.5 10*3/uL [facility] Eosinophils/100 WBC (Bld) 2.3 % 0.0 - 6.0 % [facility] Erythrocyte distribution width (RBC) [Ratio] 14.9 % 11.5 - 15.0 % [facility] Hematocrit (Bld) [Volume fraction] 35.6 % Low 40.0 - 52.0 % [facility] Hemoglobin (Bld) [Mass/Vol] 11.7 g/dL Low 13.0 - 18.0 g/dL [facility] Immature granulocytes (Bld) [#/Vol] 0.1 10*3/uL High NINF - 0.1 10*3/uL [facility] Immature granulocytes/100 WBC (Bld) 0.5 % 0.0 - 2.0 % [facility] Interpretation and review of laboratory results Abnormal [facility] Lymphocytes (Bld) [#/Vol] 2.3 10*3/uL 1.0 - 4.3 10*3/uL [facility] Lymphocytes/100 WBC (Bld) 18.1 % 15.0 - 45.0 % [facility] MCH (RBC) [Entitic mass] 29 pg 26. 0 - 34.0 pg [facility] MCHC (RBC) [Mass/Vol] 32.9 % 30.5 - 36.0 % [facility] MCV (RBC) [Entitic vol] 88.3 fL 77.0 - 99.0 fL [facility] Monocytes (Bld) [#/Vol] 1 10*3/uL High 0.0 - 0.9 10*3/uL [facility] Monocytes/100 WBC (Bld) 7.8 % 5.0 - 13.0 % [facility] Neutrophils (Bld) [#/Vol] 8.8 10*3/uL High 1.8 - 7.5 10*3/uL [facility] Neutrophils/100 WBC (Bld) 70.7 % 38.0 - 82.0 % [facility] Nucleated RBC/100 WBC (Bld) [Ratio] 0 % [facility] Platelet mean volume (Bld) [Entitic vol] 9.8 fL 9.0 - 12.7 fL [facility] Platelets (Bld) [#/Vol] 372 10*3/uL 140 - 440 10*3/uL [facility] RBC (Bld) [#/Vol] 4.03 10*6/uL Low 4.40 - 5.9 0 10*6/uL [facility] WBC (Bld) [#/Vol] 12.5 10*3/uL High 3.6 - 10.7 10*3/uL [facility] CBC WITH AUTO DIFFERENTIALon 04-21-2025 Basophils (Bld) [#/Vol] 0.1 10*3/uL Normal 0.0-0.2 [facility] Comment on above: Performed By: #### Mina [id number], [id number] ####Associate Professor Plant Pathology: BIANCA NICHOLS ([id number])[facility] ([facility])[address] [place] [address] Basophils/100 WBC (Bld) 0.6 % Normal 0.0-2.0 S [facility] Comment on above: Performed By: #### Mina [id number], [id number] ####Associate Professor Plant Pathology: BIANCA NICHOLS ([id number])[facility] ([facility])[address] [place] [address] Eosinophils (Bld) [#/Vol] 0.3 10*3/uL Normal 0.0-0.5 [facility] Comment on above: Performed By: #### Mina [id number], [id number] ####Associate Professor Plant Pathology: BIANCA NICHOLS ([id number])[facility])[address] [place] [address] Eosinophils/100 WBC (Bld) 2.3 % Normal 0.0-6.0 [facility] Comment on above: Performed By: #### Mina [id number], [id number] ####Associate Professor Plant Pathology: BIANCA NICHOLS ([id number])[facility])[address] [place] [address] Erythrocyte distribution width (RBC) [Ratio] 14.9 % Normal 11.5-15.0 [facility] Comment on above: Performed By: #### Mina [id number], [id number] ####Associate Professor Plant Pathology: BIANCA NICHOLS ([id number])[address] Hematocrit (Bld) [Volume fraction] 35.6 % Low 40.0-52.0 [facility] Comment on above: Performed By: #### Mina DE LA [id number], [id number] ####Associate Professor Plant Pathology: BIANCA NICHOLS ([id number])[address] Hemoglobin (Bld) [Mass/Vol] 11.7 g/dL Low 13.0-18.0 [facility] Comment on above: Performed By: #### Mina [id number], [id number] ####Associate Professor Plant Pathology: BIANCA NICHOLS ([id number])[facility])[address] [place] [address] IMMATURE GRANS % 0.5 % Normal 0.0-2.[address] [facility] Comment on above: Performed By: #### L [id number], [id number] ####Associate Professor Plant Pathology: BIANCA NICHOLS ([id number])[facility])[address] [place] [address] IMMATURE GRANS ABSOLUTE 0.1 10*3/uL High <0.1 [facility] Comment on above: Performed By: #### Mina AB322, [id number] ####Associate Professor Plant Pathology: BIANCA NICHOLS ([id number])[facility])[address] [place] [address] Lymphocytes (Bld) [#/Vol] 2.3 10*3/uL Normal 1.0-4.3 [facility] Comment on above: Performed By: #### Mina AB322, [id number] ####Associate Professor Plant Pathology: BIANCA NICHOLS ([id number])[facility])[address] [place] [address] Lymphocytes/100 WBC (Bld) 18.1 % Normal 15.0-45.0 [facility] Comment on above: Performed By: #### Mina AB322, [id number] ####Associate Professor Plant Pathology: BIANCA NICHOLS ([id number])[facility])[address] [place] [address] MCH (RBC) [Entitic mass] 29.0 pg Normal 26.0-34.0 [facility] Comment on above: Performed By: #### Mina AB322, [id number] ####Associate Professor Plant Pathology: BIANCA NICHOLS ([id number])[facility])[address] [place] [address] MCHC 32.9 % Normal 30.5-36.0 [facility] Comment on above: Performed By: #### Mina AB322, [id number] ####Associate Professor Plant Pathology: BIANCA NICHOLS ([id number])[facility])[address] [place] [address] MCV (RBC) [Entitic vol] 88.3 fL Normal 77.0-99.0 [facility] Comment on above: Performed By: #### Mina AB322, [id number] ####Associate Professor Plant Pathology: BIANCA NICHOLS ([id number])[facility])[address] [place] [address] Monocytes (Bld) [#/Vol] 1.0 10*3/uL High 0.0-0.9 [facility] Comment on above: Performed By: #### L [id number], [id number] ####Associate Professor Plant Pathology: BIANCA NICHOLS ([id number])[facility] ([facility])[address] [place] [address] Monocytes/100 WBC (Bld) 7.8 % Normal 5.0-13.0 [facility] Comment on above: Performed By: #### L AB322, [id number] ####Associate Professor Plant Pathology: BIANCA NICHOLS ([id number])[facility] ([facility])[address] [place] [address] NEUTROPHILS ABSOLUTE 8.8 10*3/uL High 1.8-7.5 [facility] Comment on above: Performed By: #### Mina AB322, [id number] ####Associate Professor Plant Pathology: BIANCA NICHOLS ([id number])[facility] ([facility])[address] [place] [address] Neutrophils/100 WBC (Bld) 70.7 % Normal 38.0-82.0 [facility] Comment on above: Performed By: #### Mina AB322, [id number] ####Associate Professor Plant Pathology: BIANCA NICHOLS ([id number])[facility] ([facility])[address] [place] [address] NRBC 0.0 /100 WBCs Normal 0.0-2.0 [facility] Comment on above: Performed By: #### L AB322, [id number] ####Associate Professor Plant Pathology: BIANCA NICHOLS ([id number])[facility] ([facility])[address] [place] [address] Platelet mean volume (Bld) [Entitic vol] 9.8 fL Normal 9.0-12.7 [facility] Comment on above: Performed By: #### L [id number], [id number] ####Associate Professor Plant Pathology: BIANCA NICHOLS ([id number])[facility] ([facility])[address] [place] [address] [place] Platelets (Bld) [#/Vol] 372 10*3/uL Normal 140-440 [facility] Comment on above: Performed By: #### L AB322, [id number] ####Associate Professor Plant Pathology: BIANCA NICHOLS ([id number])[facility])[address] [place] [address] RBC (Bld) [#/Vol] 4.03 10*6/uL Low 4.40-5.90 [facility] Comment on above: Performed By: #### L AB322, [id number] ####Associate Professor Plant Pathology: BIANCA NICHOLS ([id number])[facility] ([facility])[address] [place] [address] WBC (Bld) [#/Vol] 12.5 10*3/uL High 3.6-10.7 [facility] Comment on above: Performed By: #### L AB322, [id number] ####Associate Professor Plant Pathology: BIANCA NICHOLS ([id number])[facility] ([facility])[address] [place] [address] COMPREHENSIVE METABOLIC PANE Antonio 04-21-2025 Albumin [Mass/Vol] 2.3 g/dL Low 3.4-4.8 [facility] Comment on above: Performed By: #### L AB17 ####Associate Professor Plant Pathology: BIANCA NICHOLS ([id number])[facility])[address] [place] [address] ALP [Catalytic activity/Vol] 116 U/L Normal 40-150 [facility] Comment on above: Performed By: #### L AB17 ####Associate Professor Plant Pathology: BIANCA NICHOLS ([id number])[facility])[address] [place] [address] ALT [Catalytic activity/Vol] 6 U/L Normal <40 [facility] Comment on above: Performed By: #### L AB17 ####Associate Professor Plant Pathology: BIANCA NICHOLS ([id number])[facility])[address] [place] [address] Anion gap [Moles/Vol] 10 mmol/L Normal 3-13 [facility] Comment on above: Performed By: #### L AB17 ####Associate Professor Plant Pathology: BIANCA NICHOLS ([id number])[facility])[address] [place] [address] AST [Catalytic activity/Vol] 13 U/L Normal <34 [facility] Comment on above: Performed By: #### L AB17 ####Associate Professor Plant Pathology: BIANCA NICHOLS ([id number])[facility])[address] [place] [address] [place] Bilirubin [Mass/Vol] 0.5 mg/dL Normal <1.2 [facility] Comment on above: Performed By: #### L AB17 ####Associate Professor Plant Pathology: BIANCA NICHOLS ([id number])[facility] ([facility])[address] [place] [address] Calcium [Mass/Vol] 8.5 mg/dL Low 8.8-10.0 [facility] Comment on above: Performed By: #### L AB17 ####Associate Professor Plant Pathology: BIANCA NICHOLS ([id number])[facility])[address] [place] [address] [place] Chloride [Moles/Vol] 99 mmol/L Normal 98-107 [facility] Comment on above: Performed By: #### L AB17 ####Associate Professor Plant Pathology: BIANCA NICHOLS ([id number])[facility])[address] [place] [address] [place] CO2 [Moles/Vol] 21 mmol/L Low 23-31 [facility] Comment on above: Performed By: #### L AB17 ####Associate Professor Plant Pathology: BIANCA NICHOLS ([id number])[facility] ([facility])[address] [place] [address] [place] Creatinine [Mass/Vol] 0.65 mg/dL Low 0.72-1.25 [facility] Comment on above: Performed By: #### L AB17 ####Associate Professor Plant Pathology: BIANCA NICHOLS ([id number])[facility])[address] [place] [address] [place] GLOMERULAR FILTRATION RATE ML/MIN/1.73 SQ M.PREDICTED >90.0 Normal >60.0 [facility] Comment on above: Result Comment: Calc ulation based on the Chronic Kidney Disease Epidemiology Collaboration (CKD-EPI) equation refit without adjustment for race Performed By: #### L AB17 ####Associate Professor Plant Pathology: BIANCA NICHOLS ([id number])[facility])[address] [place] [address] Glucose [Mass/Vol] 202 mg/dL High 82-115 [facility] Comment on above: Performed By: #### L AB17 ####Associate Professor Plant Pathology: BIANCA NICHOLS ([id number])[facility])[address] [place] [address] Potassium [Moles/Vol] 4.3 mmol/L Normal 3.5-5.1 [facility] Comment on above: Result Comment: [facility] potassium values may be up to 0.5 mmol/L lower than serum values. Performed By: #### L AB17 ####Associate Professor Plant Pathology: BIANCA NICHOLS ([id number])[facility])[address] [place] [address] Protein [Mass/Vol] 7.6 g/dL Normal 6.4-8.3 [facility] Comment on above: Performed By: #### L AB17 ####Associate Professor Plant Pathology: BIANCA NICHOLS ([id number])[facility])[address] [place] [address] Sodium [Moles/Vol] 130 mmol/L Low 136-145 [facility] Comment on above: Performed By: #### L AB17 ####Associate Professor Plant Pathology: BIANCA NICHOLS ([id number])[facility])[address] [place] [address] Urea nitrogen [Mass/Vol] 10 mg/dL Normal 9-23 [facility] Comment on above: Performed By: #### L AB17 ####Associate Professor Plant Pathology: BIANCA NICHOLS ([id number])[facility])[address] [place] [address] CULTURE ANAEROBICon 04-21-20 25 CULTURE ANAEROBIC ANAEROBIC CULTURE (A ) Reference ANAEROBIC GRAM NEGATIVE BACILLI, NOT B. FRAGILIS Moderate Anaerobic Gram-negative bacilli, not B. fragilis (A) [ S = SUSCEPTIBLE R = RESISTANT I = INTERMEDIATE S-DD = Susceptible-dose dependent NS = Non-susceptible NO = No Interpretation ] Normal [facility] Comment on above: Performed By: #### L AB39 #### Associate Professor Plant Pathology: BIANCA NICHOLS ([id number]) [address] CULTURE, AEROBIC BACTERIA WI TH GRAM [...] Non-susceptible NO = No Interpretation ] Normal [facility] Comment on above: Performed By: #### L AB39 #### Associate Professor Plant Pathology: BIANCA NICHOLS ([id number]) [facility] ([facility]) [address] [place] [address] Comprehensive metabolic 1998 panelon 04-21-2025 Albumin [Mass/Vol] 2.3 g/dL Low 3.4 - 4.8 g/dL [facility] ALP [Catalytic activity/Vol] 116 U/L 40 - 150 U/L [facility] ALT [Catalytic activity/Vol] 6 U/L NINF - 40 U/L [facility] Anion gap [Moles/Vol] 10 mmol/L 3 - 13 mmol/L [facility] AST [Catalytic activity/Vol] 13 U/L NINF - 34 U/L [facility] Bilirubin [Mass/Vol] 0.5 mg/dL NINF - 1.2 mg/dL [facility] Calcium [Mass/Vol] 8.5 mg/dL Low 8.8 - 10. 0 mg/dL [facility] Chloride [Moles/Vol] 99 mmol/L 98 - 10 7 mmol/L [facility] CO2 [Moles/Vol] 21 mmol/L Low 23 - 31 mmol/L [facility] Creatinine [Mass/Vol] 0.65 mg/dL Low 0.72 - 1.25 mg/dL [facility] GFR/1.73 sq M.predicted (S/P/Bld) [Vol rate/Area] - PINF [facility] Comment on above: Calculation based on the Chronic Kidney Disease Epidemiology Collaboration (CKD-EPI) equation refit without adjustment for race Glucose [Mass/Vol] 202 mg/dL High 82 - 115 mg/dL [facility] Interpretation and review of laboratory results Abnormal [facility] Potassium [Moles/Vol] 4.3 mmol/L 3.5 - 5.1 mmol/L [facility] Comment on above: Plasma potassium leonie ues may be up to 0.5 mmol/L lower than serum values. Protein [Mass/Vol] 7.6 g/dL 6.4 - 8.3 g/dL [facility] Sodium [Moles/Vol] 130 mmol/L Low 136 - 145 mmol/L [facility] Urea nitrogen [Mass/Vol] 10 mg/dL 9 - 23 mg/dL [facility] ED Nursing Noteon 04-21-2025 ED Nursing Note Placed new meplix pads on open wounds on sacrum. Pictures updated in pt's chart. Normal [facility] ED Provider Noteon ED Provider Note EMERGENCY DEPARTMENT ENCOUNTER Pt Name: Anmol Reynolds Birthdate 1960 Date of evaluation: 04/21/2025 ED Provider: Chele León MD CHIEF COMPLAINT Chief Complaint Patient presents with Wound Infection Per EMS pt was sent here from the [place] for wound infections. Pt has two wound [...] Response: Oriented Best Motor Response: Follows commands [place] Coma Scale Score: 15 PHYSICAL EXAM ED [...] Eyes: Ex (more content not included)... Normal [facility] ESR (Bld) [Velocity]Ordered By: Grecia Hutton on 04-21-2025 Interpretation and review of laboratory results Abnormal [facility] HEMOGLOBIN A1Con 04-21-2025 Glucose [Mass/Vol] 180 mg/dL Normal [facility] Comment on above: Result Comment: SOSA [...] repeat testing. Performed By: #### L AB90 ####Associate Professor Plant Pathology: BIANCA NICHOLS ([id number])[facility] [address]PP[address] HEMOGLOBIN A1C 7.9 %HbA1C High <5.7 [facility] Comment on above: Result Comment: Norm al less than 5.7% Prediabetes 5.7% to 6.4% Diabetes 6.5% or higher --HgbA1C levels may not be accurate in patients who have renal disease, received recent blood transfusions, are anemic, or who have dyshemoglobinemia. Performed By: #### L AB90 ####Associate Professor Plant Pathology: BIANCA NICHOLS ([id number])[facility] [place] [address] LACTIC ACID WITH REFLEXon Lactate [Moles/Vol] 1.1 mmol/L Normal 0.5-2.2 [facility] Comment on above: Performed By: #### L [id number] ####Associate Professor Plant Pathology: BIANCA NICHOLS ([id number])[facility] ([facility])[address] [place] [address] Laboratory - Chemistry and C hemistry - challengeon 04-21-2025 Lactate [Moles/Vol] 1.1 mmol/L 0.5 - 2. 2 mmol/L [facility] Laboratory - Hematology and Cell countsOrdered By: Grecia Hutton on 04-21-2025 ESR (Bld) [Velocity] 78 mm/h High [facility] No Panel Informationon 04-21 Interpretation and review [...] ago. States that he is at a [facility] and they were concerned that his wounds [...] EMS pt was sent here from the [place] for wound infections. Pt has two wound [...] commands Beatrice (more content not included)... Normal [facility] SEDIMENTATION RATE, AUTOMATE Don 04-21-2025 SEDIMENTATION RATE, ERYTHROCYTE 78 mm/hr High 0-10 [facility] Comment on above: Performed By: #### L [id number], [id number] ####Associate Professor Plant Pathology: BIANCA NICHOLS ([id number])[facility] ([address] Urine Cultureon 04-20-2025 URC Providencia stuartii [place] Count >100,000 Providencia stuartii: REACTION Ampicillin Islt HARINDER >=32 Ampicillin+Sulbac Islt HARINDER R Cefepime Islt HARINDER <=0.12 S cefTRIAXone Islt HARINDER <=0.25 S Ciprofloxacin Islt HARINDER >=4 R Gentamicin Islt HARINDER R levoFLOXacin Islt HARINDER >=8 R Meropenem Islt HARINDER 1 S Nitrofurantoin Islt HARINDER 128 R Pip+Tazo Islt HARINDER <=4 S TMP SMX Islt HARINDER >=320 R Normal [facility] Comment on above: Performed By: #### L 101.9900, L100.0500, L500.4050, L501.6710 #### [facility] [address] [place], [place], [address] Amorphous sediment detection in urine sediment by light microscopyOrdered By: Tab Dupont on 04-18-2025 Amorphous sediment LM Ql (Urine sed) 4+ [facility] Bilirubin Test strip Ql (U)O rdered By: Tab Dupont on 04-18-2025 Bilirubin Ql (U) Negative Negative [facility] Gram Stainon 04-18-2025 GS L BUTTOCKS Gram Stain 4+ Gram positive cocci 1+ Gram negative rods 2+ White Blood Cells Normal [facility] Comment on above: Performed By: #### L 101.9900, L100.0500, L500.4050, L501.6710 #### [facility] [address] [place], [place], [id number] Ketones Test strip Ql (U)Ord ered By: Tab Dupont on 04-18-2025 Ketones Ql (U) Negative Negative [facility] Microscopic analysis of urin e for red blood cells (RBC)Ordered By: Tab Dupont on 04-18-2025 Microscopic analysis of urine for red blood cells (RBC) 0 SEEN /hpf 0-5 [facility] Mucus LM Ql (Urine sed)Order ed By: Tab Dupont on 04-18-2025 Mucus Ql (Urine sed) 0 SEEN /hpf [facility] Nitrite Test strip Ql (U)Ord ered By: Tab Dupont on 04-18-2025 Nitrite Ql (U) Positive High Negative [facility] Protein Test strip Ql (U)Ord ered By: Tab Dupont on 04-18-2025 Protein Ql (U) 100 mg/dl High Negative [facility] Squamous epithelial cells de tection in urine sediment by light microscopyOrdered By: Tab Dupont on 04-18-2025 Epithelial cells.squamous LM Ql (Urine sed) 0 SEEN /hpf 0-5 [facility] Triple phosphate crystals de tection in urine sediment by light microscopyOrdered By: Tab Dupont on 04-18-2025 Triple phosphate crystals LM Ql (Urine sed) 4+ /hpf [facility] Urinalysis, Completeon 04-18 AMORPHOUS 4+ Normal [facility] Comment on above: Order Comment: 301.2 Performed By: #### L 101.9900, L100.0500, L500.4050, L501.6710 #### [facility] [address] [place], [address] WBC 0-5 SEEN Normal 0-5 [facility] Comment on above: Order Comment: 301.2 Performed By: #### L 101.9900, L100.0500, L500.4050, L501.6710 #### [facility] [address] [place], [address] TRIPLE PHOS 4+ /hpf Normal [facility] Comment on above: Order Comment: 301.2 Performed By: #### L 101.9900, L100.0500, L500.4050, L501.6710 #### [facility] [address] [place], [address] BACTERIA 0 SEEN Normal None Seen [facility] Comment on above: Order Comment: 301.2 Performed By: #### L 101.9900, L100.0500, L500.4050, L501.6710 #### [facility] [address] [place], [address] EPI,SQUAMOUS 0 SEEN Normal 0-5 [facility] Comment on above: Order Comment: 301.2 Performed By: #### L 101.9900, L100.0500, L500.4050, L501.6710 #### [facility] [address] [place], [address] Mucus Ql (Urine sed) 0 SEEN Normal [facility] Comment on above: Order Comment: 301.2 Performed By: #### L 101.9900, L100.0500, L500.4050, L501.6710 #### [facility] [address] [place], [address] RBC 0 SEEN Normal 0-5 [facility] Comment on above: Order Comment: 301.2 Performed By: #### L 101.9900, L100.0500, L500.4050, L501.6710 #### [facility] [address] [place], [address] Urine clarityOrdered By: Regino Dupont on 04-18-2025 Clarity (U) Turbid Clear [facility] Urine color determinationOrd ered By: Tab Dupont on 04-18-2025 Color (U) Yellow Yellow [facility] Urine cultureOrdered By: Regino Dupont on 04-18-2025 Bacteria identified Cx Nom (U) Providencia stuartii Abnormal [facility] Urine glucose detectionOrder ed By: Tab Dupont on 04-18-2025 Glucose Ql (U) 100 mg/dl High Normal [facility] Urine leukocyte esterase det ection by dipstickOrdered By: Tab Dupont on 04-18-2025 Leukocyte esterase Test strip Ql (U) 500 /ul High Negative [facility] Urine pHOrdered By: Tab cordova on 04-18-2025 pH (U) 8.0 [pH] 5.0 - 8.0 [facility] Urine sediment bacteria coun t by microscopy (number/high power field)Ordered By: Tab Dupont on 04-18-2025 Bacteria LM.HPF (Urine sed) [#/Area] 0 /[HPF] None Seen [facility] Urine specific gravity measu rementOrdered By: Tab Dupont on 04-18-2025 Specific gravity (U) [Rel density] 1.015 1.002-1.030 [facility] Urine urobilinogen measureme ntOrdered By: Tab Dupont on 04-18-2025 Urobilinogen Ql (U) Normal mg/dl Normal [facility] White blood cell countOrdere d By: Tab Dupont on 04-18-2025 White blood cell count 0-5 SEEN /hpf 0-5 [facility] Gram stainOrdered By: Tab Dupont on 04-16-2025 Microscopic observation Gram stain Nom (Unsp spec) [facility] Routine wound cultureOrdered By: Tab Dupont on 04-16-2025 Microbial culture, routine Meth. resistant Staph. aureus Abnormal [facility] Microbial culture, routine Morganella morganii sp morgani Abnormal [facility] CNPNon 03-24-2025 CNPN Telephone (UROLAE) GIVEN,ANMOL ARAUJO ([id number]) 1960 M Date Time Provider Department 03/24/25 [...] Comments as of 02/17/2025: Verified medications with [facility] 02/17/2025 Problem List As Of Date 03/24/2025 Noted Resolved NO SHOW [[id number]] 08/31/2013 05/29/2020 Perineal abscess [L02.215] 06/13/2019 05/29/2020 [...] 02/17/2025 Proctoco (more content not included)... Normal [facility] ANES POSTPROC EVALon 025 ANES POSTPROC EVAL HNO ID: [id number] Author: AUDREY SIMMONS MD Service: Anesthesiology Author [...] March 20, 2025 TIME: 12:16 PM CSN: [id number] Normal [facility] ANES PRE-OPon 03-20-2025 ANES PRE-OP HNO ID: [id number] Author: AUDREY SIMMONS MD Service: Anesthesiology Author [...] as needed (more content not included)... Normal [facility] HISTORY PHYSICALon HISTORY PHYSICAL HNO ID: [id number] Author: ANMOL HERBERT MD Service: Urology Author [...] 11/27/2021 Sciatica Severe protein-calorie malnutrition ([facility]) 09/04/2021 Type 2 diabetes mellitus with hyperglycemia, with long-term current use of insulin ([facility]) 01/18/2021 Ureteral stone 11/25/2021 UTI (urinary tract infection) 11/26/2021 Vertebral osteomyelitis ([facility]) 01/04/2022 PAST SURGICAL HISTORY: PAST SURGICAL [...] Value 02/22 (more content not included)... Normal [facility] OPERATIVE NOon 03-20-2025 OPERATIVE NO HNO ID: [id number] Author: ANMOL HERBERT MD Service: Urology Author Type: Physician Type: Operative Report Filed: 03/21/2025 07:31 Note Text: OPERATIVE/PROCEDURE REPORT LOG ID: [id number] SURGERY/PROCEDURE DATE: 03/20/2025 INCISION/PROCEDURE START TIME: 10:34 AM INCISION CLOSE/PROCEDURE END TIME: 11:03 AM SURGEON(S)/PROCEDURAL IST(S) AND TREE EXPERT(S): Surgeons and Role: * Anmol Herbert MD - Primary * Jose Nesbitt MD - Resident - Assisting No Additional Staff SURGERY/PROCEDURE(S): CYSTOSCOPY, RETROPYELOGRAM: [id number] (CPT?) CYSTOURETHROSCOPY W/ REMOVE URETERAL STENT: 02508 (CPT?) INSERTION STENT DOUBLE J: 57754 (CPT?) ANESTHESIA: General SURGERY/PROCEDURE DETAILS: Anmol Reynolds [...] the beginning of the procedure. Chronic 20 [place] catheter was removed. A 21F cystourethroscope [...] all mucus and cystoscope was removed. 20 [place] catheter with 10 cc in balloon was replaced. Patient awoken from anesthesia having tolerated the procedure well. Anmol Reynolds Was transferred to recovery room. PRE-OP/PRE-PROCEDURE DIAGNOSIS: Pre-existing ureteral stents bilateral POST-OP/POST-PROCEDUR E DIAGNOSIS: Same ESTIMATED BLOOD LOSS: 0 ml SPECIMENS: None IMPLANTABLE DEVICES: NONE DRAINS: 20 [place] Santana catheter with 10 cc in [...] MD March 21, 2025 7:31 AM Normal [facility] XR RETROGRADE PYELOGRAM BILo n 03-20-2025 XR RETROGRADE PYELOGRAM KENROY * * *Final Report* * * DATE OF EXAM: Mar 20 2025 5:16PM [facility] 3021 - XR RETROGRADE PYELOGRAM KENROY [...] of ureteral stents and bilateral retrograde pyelograms. Pleat Patternmaker: CECILIA Transcribe Date/Time: Mar 21 2025 8:21A Dictated by : KATHRIN MCKNIGHT MD This examination was interpreted and the report reviewed and electronically signed by: KATHRIN MCKNIGHT MD on Mar 21 2025 8:23AM EST [id number] N [facility] NURSING PROGon 03-17-2025 NURSING PROG HNO ID: [id number] Author: VICTORIANO GRANT RN Service: ? Author Type: Registered Nurse Type: Nursing Progress Note Filed: 03/17/2025 13:04 Note Text: Spoke w/ Comfort,surgical schedule @ 's office to verify scheduled time of Sx for Thursday;AND was directed that OR scheduled for 10:00;AND Eliquis does Not need to be held for procedure. [facility] 36on 03-15-2025 36 Spoke to nursing facility who states Pt is going to proceed with surgery at [facility]. [facility] 36 Left message for Pts nurse to call me back. [facility] CNOVon 03-14-2025 CNOV Office Visit (PLWDMR ) GIVEN,ANMOL ARAUJO ([id number]) 1960 M Date Time Provider Department 03/14/25 [...] with multiple staff Home Care Company/Nursing Facility: [place] [facility] Consent captured for debridement per (Provider) and good until Special Instructions (for example, patient stands at the bedside for exam/dressing): bed Anticoagulant Therapy: Eliquis Living Situation (ie... Apartment, house, HALFWAY): [facility] Who lives with patient: facility Who will [...] BY PROVIDER: Anesthetic Used: N/A applied per experimental mechanic spacecraft # 1 AND 2 Other procedure: Specimen [...] COMPRESSION: N/A DME: Prism order date DME: WILMAN Sun , PH: [phone] SPECIAL NEEDS: EFax orders to [place] [phone] Emotional support N/A OR set-up N/A Car Tester N/A Incontinence needs N/A DISCHARGED in stable [...] be drawn PARI and results faxed to [facility] [phone] Stop smoking EDUCATION: The patient/family was instructed [...] been diagnosed with (more content not included)... [facility] 36on 03-13-2025 36 Still need disc with images. Will need to review with Dr. Grimm. [facility] 36 Is it OK to get Pt scheduled for surgery? Please advise. [facility] 37on 03-07-2025 37 Need images from [facility] on disc brought to office for review in order for patient to have ureteral stent treatment at [facility]. Patient prefers [facility]. CT abdomen/pelvis 02/16/25 XR abdomen 02/16/25 and 02/17/25 Planning for ESWL vs laser litho w stent exchange. [facility] Office Visiton 03-07-2025 Follow-up visit [id number] GailAnmol Franco 1960 M Date Provider Department Center 03/07/2025 [facility]OANA JAY [facility] None No family history on file Level of Service:83121 ND OFFICE/OUTPATIENT ESTABLISHED MOD MDM 30 MIN Reason for Visit and Comments: Nephrolithiasis [435819] [facility] Progress Noteon 03-07-2025 Progress Note Yoana Solitario APRN - SHARIFA 03/07/2025 9:15 AM Urology Office [facility] [address], [address] [place] [address] PATIENT NAME: Anmol Salvador Reynolds DATE OF : 1960 REFERRING PROVIDER: [...] negative rods. Treated. Follow up outpatient with [facility] urology Patient is scheduled for surgery w Dr Maria on 03/20/25 however he prefers treatment at [facility] Will need images for surgery [...] 8. Details above. 9. Follow-up as indicated. Pleat Patternmaker: PSCB Transcribe Date/Time: Feb 16 2025 10:02P Dictated by : CORBIN PERRY MD This examination was interpreted and the report reviewed and electronically signed by: CORBIN PERRY MD on Feb 16 2025 10:34PM EST Narrative * * *Final Report* * * DATE OF EXAM: Feb 16 2025 8:33PM [facility] 0530 - CT ABD/PEL W IVCON [...] and sagittal (more content not included)... Normal [facility] Anion gap in Serum or Plasma Ordered By: Tab Dupont on 03-01-2025 Anion gap [Moles/Vol] 11 mmol/L 02-16 [facility] BUN/creatinine ratioOrdered By: Tab Dupont on 03-01-2025 Urea nitrogen/Creatinine [Mass ratio] 15.3 mg/mg 07-24 [facility] Basic Metabolic Profile (BMP )on 03-01-2025 BUN/CRE 15.3 RATIO Normal 07-24 [facility] Comment on above: Order Comment: 412-2 Performed By: #### L 500.2500, L100.0500 #### [facility] [address] [place], [address] Calcium [Mass/Vol] 8.5 mg/dL Normal 7.6-11.0 [facility] Comment on above: Order Comment: 412-2 Performed By: #### L 500.2500, L100.0500 #### [facility] [address] [place], [address] Chloride [Moles/Vol] 104 mmol/L Normal 98-108 [facility] Comment on above: Order Comment: 412-2 Performed By: #### L 500.2500, L100.0500 #### [facility] [address] [place], [address] CO2 [Moles/Vol] 21.8 mmol/L Normal 21.0-32.0 [facility] Comment on above: Order Comment: 412-2 Performed By: #### L 500.2500, L100.0500 #### [facility] [address] [place], [address] Creatinine [Mass/Vol] 0.59 mg/dL Low 0.70-1.20 [facility] Comment on above: Order Comment: 412-2 Performed By: #### L 500.2500, L100.0500 #### [facility] [address] [place], [address] GAP 11 Normal 5-15 [facility] Comment on above: Order Comment: 412-2 Performed By: #### L 500.2500, L100.0500 #### [facility] [address] [place], [address] GFR/1.73 sq M.predicted among non-blacks MDRD (S/P/Bld) [Vol rate/Area] 109 mL/min/{1.73_m2} Normal >60 [facility] Comment on above: Order Comment: 412-2 Result Comment: mL/m in/1.73m2 CKD-EPI Creatinine Equation (2020) Performed By: #### L 500.2500, L100.0500 #### [facility] [address] [place], [address] Glucose [Mass/Vol] 146 mg/dL High 70-99 [facility] Comment on above: Order Comment: 412-2 Performed By: #### L 500.2500, L100.0500 #### [facility] [address] [place], [address] Potassium [Moles/Vol] 4.0 mmol/L Normal 3.3-5.1 [facility] Comment on above: Order Comment: 412-2 Performed By: #### L 500.2500, L100.0500 #### [facility] [address] [place], [address] Sodium [Moles/Vol] 136 mmol/L Normal 133-145 [facility] Comment on above: Order Comment: 412-2 Performed By: #### L 500.2500, L100.0500 #### [facility] [address] [place], [address] Urea nitrogen [Mass/Vol] 9 mg/dL Normal 4-19 [facility] Comment on above: Order Comment: 412-2 Performed By: #### L 500.2500, L100.0500 #### [facility] [address] [place], [address] CBC-Complete Blood Cnt No Di ffon 03-01-2025 Erythrocyte distribution width (RBC) [Ratio] 15.4 % High 11.6-14.6 [facility] Comment on above: Order Comment: 412-2 Performed By: #### L 500.2500, L100.0500 #### [facility] [address] [place], [address] Hematocrit (Bld) [Volume fraction] 41.2 % Normal 40-54 [facility] Comment on above: Order Comment: 412-2 Performed By: #### L 500.2500, L100.0500 #### [facility] [address] [place], [address] Hemoglobin (Bld) [Mass/Vol] 12.9 g/dL Low 13.0-16.5 [facility] Comment on above: Order Comment: 412-2 Performed By: #### L 500.2500, L100.0500 #### [facility] [address] [place], [address] MCH (RBC) [Entitic mass] 29.5 pg Normal 27.0-32.0 [facility] Comment on above: Order Comment: 412-2 Performed By: #### L 500.2500, L100.0500 #### [facility] [address] [place], [address] MCHC (RBC) [Mass/Vol] 31.3 g/dL Low 32-36 [facility] Comment on above: Order Comment: 412-2 Performed By: #### L 500.2500, L100.0500 #### [facility] [address] [place], [address] MCV (RBC) [Entitic vol] 94.3 fL High 80-94 [facility] Comment on above: Order Comment: 412-2 Performed By: #### L 500.2500, L100.0500 #### [facility] [address] [place], [address] Platelet mean volume (Bld) [Entitic vol] 11.6 fL Normal 6.2-12.0 [facility] Comment on above: Order Comment: 412-2 Performed By: #### L 500.2500, L100.0500 #### [facility] [address] [place], [address] Platelets (Bld) [#/Vol] 345 10*3/uL Normal 150-450 [facility] Comment on above: Order Comment: 412-2 Performed By: #### L 500.2500, L100.0500 #### [facility] [address] [place], [address] RBC (Bld) [#/Vol] 4.37 10*6/uL Low 4.6-6.2 [facility] Comment on above: Order Comment: 412-2 Performed By: #### L 500.2500, L100.0500 #### [facility] [address] [place], [address] RDW SD 52.4 fl High 35.1-43.9 [facility] Comment on above: Order Comment: 412-2 Performed By: #### L 500.2500, L100.0500 #### [facility] [address] [place], [address] WBC (Bld) [#/Vol] 7.6 10*3/uL Normal 4.4-11.0 [facility] Comment on above: Order Comment: 412-2 Performed By: #### L 500.2500, L100.0500 #### [facility] [place], [address] Carbon dioxide, total [Moles /volume] in Central venous bloodOrdered By: Tab Dupont on 03-01-2025 CO2 [Moles/Vol] 21.8 mmol/L 21.0-32.0 [facility] Chloride assayOrdered By: Vinh Lehman on 03-01-2025 Chloride [Moles/Vol] 104 mmol/L 98-108 [facility] Erythrocyte distribution wid th ratioOrdered By: Tab Dupont on 03-01-2025 Erythrocyte distribution width (RBC) [Ratio] 15.4 % High 11.6-14.6 [facility] Erythrocyte distribution wid th standard deviationOrdered By: Tab Dupont on 03-01-2025 Erythrocyte distribution width (RBC) [Ratio] 52.4 fl High 35.1-43.9 [facility] Glomerular filtration rate ( GFR) estimation/1.73 sq m using serum, plasma, or whole bOrdered By: Tab Dupont on 03-01-2025 GFR/1.73 sq M.predicted among non-blacks MDRD (S/P/Bld) [Vol rate/Area] 109 mL/min/{1.73_m2} >60 [facility] Comment on above: mL/min/1.73m2 CKD-EP I Creatinine Equation (2020) Hematocrit Auto (Bld) [Volum e fraction]Ordered By: Tab Dupont on 03-01-2025 Hematocrit (Bld) [Volume fraction] 41.2 % 40-54 [facility] Hemoglobin measurementOrdere d By: Tab Dupont on 03-01-2025 Hemoglobin (Bld) [Mass/Vol] 12.9 g/dL Low 13.0-16.5 [facility] MCV (mean corpuscular volume ) determinationOrdered By: Tab Dupont on 03-01-2025 MCV (RBC) [Entitic vol] 94.3 fL High 80-94 [facility] Mean corpuscular hemoglobin (MCH) determinationOrdered By: Tab Dupont on 03-01-2025 MCH (RBC) [Entitic mass] 29.5 pg 27.0-32.0 [facility] Mean corpuscular hemoglobin concentration (MCHC) determinationOrdered By: Tab Dupont on 03-01-2025 MCHC (RBC) [Mass/Vol] 31.3 g/dL Low 32-36 [facility] Mean platelet volume determi nationOrdered By: Tab Dupont on 03-01-2025 Platelet mean volume (Bld) [Entitic vol] 11.6 fL 6.2-12.0 [facility] Platelet countOrdered By: Vinh Lehman on 03-01-2025 Platelets (Bld) [#/Vol] 345 10*3/uL 150-450 [facility] Potassium measurement (mass/ volume)Ordered By: Tab Dupont on 03-01-2025 Potassium (Unsp spec) [Mass/Vol] 4.0 mmol/L 3.3-5.1 [facility] RBC Auto (Bld) [#/Vol]Ordere d By: Tab Dupont on 03-01-2025 RBC (Bld) [#/Vol] 4.37 10*6/uL Low 4.6-6.2 [facility] Serum creatinine measurement (mass/volume)Ordered By: Tab Dupont on 03-01-2025 Creatinine [Mass/Vol] 0.59 mg/dL Low 0.70-1.20 [facility] Serum glucose measurement (m ass/volume)Ordered By: Tab Dupont on 03-01-2025 Glucose [Mass/Vol] 146 mg/dL High 70-99 [facility] Serum or plasma calcium randall urement (mass/volume)Ordered By: Tab Dupont on 03-01-2025 Calcium [Mass/Vol] 8.5 mg/dL 7.6-11.0 [facility] Serum or plasma urea nitroge n measurement (mass/volume)Ordered By: Tab Dupont on 03-01-2025 Urea nitrogen [Mass/Vol] 9 mg/dL 4-19 [facility] Sodium levelOrdered By: Omar Dupont on 03-01-2025 Sodium [Moles/Vol] 136 mmol/L 133-145 [facility] White blood cell (WBC) count Ordered By: Tab Dupont on 03-01-2025 WBC (Bld) [#/Vol] 7.6 10*3/uL 4.4-11.0 [facility] CBC panel Auto (Bld)on 02-22 Erythrocyte distribution width (RBC) [Ratio] 14.8 % Normal 11.5-15.0 [facility] Comment on above: Order Comment: Speci men Type: BLOOD SPECIMENOrdering Facility: [facility] Address: [address] [place] [address] Performed By: #### 5 8410-2 ####[facility] [id number] [address] OF [facility] Hematocrit (Bld) [Volume fraction] 33.6 % Low 39.0-51.0 [facility] Comment on above: Order Comment: Speci men Type: BLOOD SPECIMENOrdering Facility: [facility] Address: [address] [place] [address] Performed By: #### 5 8410-2 ####[facility] [id number] [address] OF [facility] Hemoglobin (Bld) [Mass/Vol] 10.6 g/dL Low 13.0-17.0 [facility] Comment on above: Order Comment: Speci men Type: BLOOD SPECIMENOrdering Facility: [facility] Address: [address] [place] [address] Performed By: #### 5 8410-2 ####[facility]ORYCLIA [id number] [address] [place] MCH (RBC) [Entitic mass] 30.0 pg Normal 26.0-34.0 [facility] Comment on above: Order Comment: Speci men Type: BLOOD SPECIMENOrdering Facility: [facility] Address: [address] [place] [address] Performed By: #### 5 8410-2 ####[facility]ORYCLIA [id number] [address] [place] MCHC (RBC) [Mass/Vol] 31.5 g/dL Normal 30.5-36.0 [facility] Comment on above: Order Comment: Speci men Type: BLOOD SPECIMENOrdering Facility: [facility] Address: [address] [place] [address] Performed By: #### 5 8410-2 ####[facility]ORYCLIA [id number] [address] MCV (RBC) [Entitic vol] 95.2 fL Normal 80.0-100.0 [facility] Comment on above: Order Comment: Speci men Type: BLOOD SPECIMENOrdering Facility: [facility] Address: [address] [place] [address] Performed By: #### 5 8410-2 ####[facility]ORYCLIA [id number] [address] Nucleated RBC (Bld) [#/Vol] 10*3/uL Normal <0.01 [facility] Comment on above: Order Comment: Speci men Type: BLOOD SPECIMENOrdering Facility: [facility] Address: [address] [place] [address] Performed By: #### 5 8410-2 ####[facility]ORYCLIA [id number] [address] Platelet mean volume (Bld) [Entitic vol] 11.5 fL Normal 9.0-12.7 [facility] Comment on above: Order Comment: Speci men Type: BLOOD SPECIMENOrdering Facility: [facility] Address: [address] [place] [address] Performed By: #### 5 8410-2 ####[facility]ORYCLIA [id number] [address] Platelets (Bld) [#/Vol] 153 10*3/uL Normal 150-400 [facility] Comment on above: Order Comment: Speci men Type: BLOOD SPECIMENOrdering Facility: [facility] Address: [address] [place] [address] Performed By: #### 5 8410-2 ####[facility]ORYCLIA [id number] [address] RBC (Bld) [#/Vol] 3.53 10*6/uL Low 4.20-6.00 [facility] Comment on above: Order Comment: Speci men Type: BLOOD SPECIMENOrdering Facility: [facility] Address: [address] [place], [place] [address] Performed By: #### 5 8410-2 ####[facility]ORYCLIA [id number] [place], [place] [address] [place] [address] WBC (Bld) [#/Vol] 9.23 10*3/uL Normal 3.70-11.00 [facility] Comment on above: Order Comment: Speci men Type: BLOOD SPECIMENOrdering Facility: [facility] Address: [address] [place], [place] [address] Performed By: #### 5 8410-2 ####[facility]ORYCLIA [id number] [place] [address] [facility] CNDSon 02-22-2025 CNDS HNO ID: [id number] Author: CHUY PADILLA DO Service: Hospital Medicine [...] 2024. The patient initially presented to the [facility] ED on February 16, 2025 after being found unresponsive at his SNF and was unable to protect his airway. Patient was intubated, started on Levophed and admitted to MICU for acute hypoxemic respiratory failure. CT showed hydronephrosis and culture was remarkable for gram-negative rods. patient was started on meropenem per Infectious disease recommendations. urology was consulted and recommended to follow-up with [facility] urology. patient was extubated on 02/17, [...] No pending results Discharge Disposition Discharge Disposition: Custodial Facility - Less than 30 Days Activity [...] call for appointment?: Yes Gayle Scott MD [phone] [facility] [address] [facility] [address] PCP Requested Referral Additional Provider to Provider [...] (current) us (more content not included)... Normal [facility] Comprehensive metabolic 2000 panelon 02-22-2025 Albumin [Mass/Vol] 2.2 g/dL Low 3.9-4.9 [facility] Comment on above: Order Comment: Jg valdez Type: BLOOD SPECIMENOrdering Facility: [facility] Address: [address] [place] [address] Performed By: #### 2 4323-8 ####[facility]ORYCLIA [id number] [address] [place] OF [facility] ALP [Catalytic activity/Vol] 89 U/L Normal 38-113 [facility] Comment on above: Order Comment: Speci courtney Type: BLOOD SPECIMENOrdering Facility: [facility] Address: [address] [place] [address] Performed By: #### 2 4323-8 ####[facility]ORYCLIA [id number] [address] [place] ALT With P-5'-P [Catalytic activity/Vol] 12 U/L Normal 10-54 [facility] Comment on above: Order Comment: Speci men Type: BLOOD SPECIMENOrdering Facility: [facility] Address: [address] [place] [address] Performed By: #### 2 4323-8 ####[facility]ORYCLIA [id number] [place] [address] [place] Anion gap [Moles/Vol] 8 mmol/L Normal 8-15 [facility] Comment on above: Order Comment: Speci men Type: BLOOD SPECIMENOrdering Facility: [facility] Address: [address] [place] [address] Performed By: #### 2 4323-8 ####[facility]ORYCLIA [id number] [address] [place] AST With P-5'-P [Catalytic activity/Vol] 13 U/L Low 14-40 [facility] Comment on above: Order Comment: Speci men Type: BLOOD SPECIMENOrdering Facility: [facility] Address: [address] [place] [address] Performed By: #### 2 4323-8 ####[facility]ORYCLIA [id number] [address] STATES OF [facility] Bilirubin [Mass/Vol] 0.4 mg/dL Normal 0.2-1.3 [facility] Comment on above: Order Comment: Speci men Type: BLOOD SPECIMENOrdering Facility: [facility] Address: [address] [place] [address] Performed By: #### 2 4323-8 ####[facility]ORYCLIA [id number] [place] [address] [place] Calcium [Mass/Vol] 7.7 mg/dL Low 8.5-10.2 [facility] Comment on above: Order Comment: Speci men Type: BLOOD SPECIMENOrdering Facility: [facility] Address: [address] [place] [address] Performed By: #### 2 4323-8 ####[facility]ATORYCLIA [id number] [place] [address] [place] Chloride [Moles/Vol] 108 mmol/L High 98-107 [facility] Comment on above: Order Comment: Speci men Type: BLOOD SPECIMENOrdering Facility: [facility] Address: [address] [place] [address] Performed By: #### 2 4323-8 ####[facility]ATORYCLIA [id number] [place] [id number] [place] CO2 [Moles/Vol] 23 mmol/L Normal 22-30 [facility] Comment on above: Order Comment: Speci men Type: BLOOD SPECIMENOrdering Facility: [facility] Address: [address] [place] [address] Performed By: #### 2 4323-8 ####[facility] [id number] [place] [address] [place] Creatinine [Mass/Vol] 0.60 mg/dL Low 0.73-1.22 [facility] Comment on above: Order Comment: Speci men Type: BLOOD SPECIMENOrdering Facility: [facility] Address: [address] [place] [address] Performed By: #### 2 4323-8 ####[facility]CL[facility] [id number] [address] Creatinine and Glomerular filtration rate.predicted panel (S/P/Bld) 108 mL/min/1.73m??? Normal >=60 [facility] Comment on above: Order Comment: Speci men Type: BLOOD SPECIMENOrdering Facility: [facility] Address: [address] [place] [address] Result Comment: Leena mated Glomerular Filtration Rate [...] actual GFR. Performed By: #### 2 4323-8 ####[facility]ORYCLIA [id number] [place] [address] [place] Glucose [Mass/Vol] 144 mg/dL High 74-99 [facility] Comment on above: Order Comment: Speci men Type: BLOOD SPECIMENOrdering Facility: [facility] Address: [address] [place] [address] Result Comment: The [place] Diabetes Association (ADA) provides guidance for cutoff [...] Medical Care in Diabetes 2016, [place] Diabetes Association. Diabetes Care. 2016.39(Suppl 1). Performed By: #### 2 4323-8 ####[facility]ATORYCLIA [id number] [place] [address] [place] Potassium [Moles/Vol] 3.9 mmol/L Normal 3.7-5.1 [facility] Comment on above: Order Comment: Jg courtney Type: BLOOD SPECIMENOrdering Facility: [facility] Address: [address] [place] [address] Performed By: #### 2 4323-8 ####[facility]ORYCLIA [id number] [place] [address] [place] Protein [Mass/Vol] 5.7 g/dL Low 6.3-8.0 [facility] Comment on above: Order Comment: Speci men Type: BLOOD SPECIMENOrdering Facility: [facility] Address: [address] [place] [address] Performed By: #### 2 4323-8 ####[facility]ORYCLIA [id number] [place] [address] [place] Sodium [Moles/Vol] 139 mmol/L Normal 136-144 [facility] Comment on above: Order Comment: Speci men Type: BLOOD SPECIMENOrdering Facility: [facility] Address: [address] [place] [address] Performed By: #### 2 4323-8 ####[facility]ORYCLIA [id number] [place] [address] [facility] Urea nitrogen [Mass/Vol] 14 mg/dL Normal 9-24 [facility] Comment on above: Order Comment: Speci men Type: BLOOD SPECIMENOrdering Facility: [facility] Address: [address] [place] [address] Performed By: #### 2 4323-8 ####[facility]ORYCLIA [id number] [place] [id number] [facility] [place] NURSING PROGon 02-22-2025 NURSING PROG HNO ID: [id number] Author: NAHUN GUNDERSON RN Service: Nursing Author Type: Registered Nurse Type: Nursing Progress Note Filed: 02/22/2025 19:58 Note Text: Call to ALEXANDRA Adams at [facility] for report. Follow up appts AND new medications reviewed. Normal [facility] THERAPY NTon 02-22-2025 THERAPY NT HNO ID: [id number] Author: VICTORIANO BACA OTR/Mina Service: Occupational Therapy Author Type: Occupational Therapist Type: Therapy (PT/OT/Speech/Resp) Filed: 02/22/2025 15:00 Note Text: Occupational Therapy Evaluation Summary SERVICE DATE: 02/22/2025 SERVICE TIME: 1345 to 1403 ROOM: [place] [address] OT 6 Clicks Score: 16 DISCHARGE RECOMMENDATIONS [...] shock was managed in ICU; transferred to [facility] 02/20 Relevant Past Medical History: back injury and surgery in the past--then found to have epidural abscess--had another back sx in 2021--harware needed removed in January 2022 and then was paraplegic; has had issues with UTIs HOME LIVING Patient Lives With: Facility Care ([facility]) Assistance Available: 24-Hour Tub/Shower Type: sponge [...] Time (minutes): 18 $ Evaluation - Low (32609) Billed Units: 1 unit TRAINING AND EDUCATION [...] February 22, 2025 TIME: 2:58 PM Normal [facility] THERAPY NT HNO ID: [id number] Author: FABRICIO GREENBERG, PT Service: Physical Therapy Author Type: Physical Therapist Type: Therapy (PT/OT/Speech/Resp) Filed: 02/22/2025 11:54 Note Text: Physical Therapy Evaluation Summary SERVICE DATE: 02/22/2025 SERVICE TIME: 1120 to 1135 ROOM: [id number] PT 6 Clicks Score: 7 DISCHARGE RECOMMENDATIONS ECF ASSESSMENT Response to Therapy Interventions: Multiple Ongoing Medical Issues pt tolerated bilat LE PROM--no c/o pain; able to complete roll with assist from PT with drawhseet PRECAUTIONS Fall Risk, Lines/Tubes/Drains CURRENT HOSPITAL COURSE presented to ED after being found unresponsive--septic shock was managed in ICU; transferred to [facility] 02/20 Relevant Past Medical History: back injury and surgery in the past--then found to have epidural abscess--had another back sx in 2021--harware needed removed in January 2022 and then was paraplegic; has had issues with UTIs HOME LIVING Patient Lives With: Facility Care ([facility]) Assistance Available: 24-Hour Equipment Owned: Wheelchair- [...] Skilled Treatment Time (minutes): 15 $ Evaluation-Moderate (46408) Billed Units: 1 unit Completed PROM bilat [...] February 22, 2025 TIME: 11:53 AM Normal [facility] CBC panel Auto (Bld)on 02-21 Erythrocyte distribution width (RBC) [Ratio] 14.9 % Normal 11.5-15.0 [facility] Comment on above: Order Comment: Speci men Type: BLOOD SPECIMENOrdering Facility: [facility] Address: [address] [place] [address] Performed By: #### 5 8410-2 ####[facility]ATORYCLIA [id number] [address] OF [facility] Hematocrit (Bld) [Volume fraction] 38.6 % Low 39.0-51.0 [facility] Comment on above: Order Comment: Speci men Type: BLOOD SPECIMENOrdering Facility: [facility] Address: [address] [place] [address] Performed By: #### 5 8410-2 ####[facility]CLIA [id number] [address] OF [facility] Hemoglobin (Bld) [Mass/Vol] 12.3 g/dL Low 13.0-17.0 [facility] Comment on above: Order Comment: Speci men Type: BLOOD SPECIMENOrdering Facility: [facility] Address: [address] [place] [address] Performed By: #### 5 8410-2 ####[facility]ATORYCLIA [id number] [address] [place] MCH (RBC) [Entitic mass] 29.9 pg Normal 26.0-34.0 [facility] Comment on above: Order Comment: Speci men Type: BLOOD SPECIMENOrdering Facility: [facility] Address: [address] [place] [address] Performed By: #### 5 8410-2 ####[facility]ORYCLIA [id number] [address] [place] MCHC (RBC) [Mass/Vol] 31.9 g/dL Normal 30.5-36.0 [facility] Comment on above: Order Comment: Speci men Type: BLOOD SPECIMENOrdering Facility: [facility] Address: [address] [place] [address] Performed By: #### 5 8410-2 ####[facility]ORYCLIA [id number] [address] MCV (RBC) [Entitic vol] 93.7 fL Normal 80.0-100.0 [facility] Comment on above: Order Comment: Speci men Type: BLOOD SPECIMENOrdering Facility: [facility] Address: [address] [place] [address] Performed By: #### 5 8410-2 ####[facility]ATORYCLIA [id number] [address] Nucleated RBC (Bld) [#/Vol] 10*3/uL Normal <0.01 [facility] Comment on above: Order Comment: Speci men Type: BLOOD SPECIMENOrdering Facility: [facility] Address: [address] [place] [address] Performed By: #### 5 8410-2 ####[facility]ORYCLIA [id number] [address] Platelet mean volume (Bld) [Entitic vol] 11.7 fL Normal 9.0-12.7 [facility] Comment on above: Order Comment: Speci men Type: BLOOD SPECIMENOrdering Facility: [facility] Address: [address] [place] [address] Performed By: #### 5 8410-2 ####[facility]ORYCLIA [id number] [address] Platelets (Bld) [#/Vol] 134 10*3/uL Low 150-400 [facility] Comment on above: Order Comment: Speci men Type: BLOOD SPECIMENOrdering Facility: [facility] Address: [address] [place] [address] Result Comment: No c lot detected. Performed By: #### 5 8410-2 ####[facility]ATORYCLIA [id number] [address] OF [facility] RBC (Bld) [#/Vol] 4.12 10*6/uL Low 4.20-6.00 [facility] Comment on above: Order Comment: Alvaroliliana valdez Type: BLOOD SPECIMENOrdering Facility: [facility] Address: [address] [place] [address] Performed By: #### 5 8410-2 ####[facility]ORYCLIA [id number] [address] OF [facility] WBC (Bld) [#/Vol] 9.99 10*3/uL Normal 3.70-11.00 [facility] Comment on above: Order Comment: Jg corutney Type: BLOOD SPECIMENOrdering Facility: [facility] Address: [address] [place] [address] Performed By: #### 5 8410-2 ####[facility]ATORYCLIA [id number] [address] CONSULT PROGon 02-21-2025 CONSULT PROG HNO ID: [id number] Author: ERIKA TEE APRN.CNP Service: Infectious Disease Author Type: Nurse Practitioner [...] AG 02/16/2025 after being found unresponsive at [facility]. Urine and blood cultures with [...] Drains, and Airways Line Duration Peripheral 02/16/251922 [facility] Short Left Antecubital 18 Gauge 4 days Drain Duration Indwelling Urinary Catheter 02/16/252125 [facility] Coude 20 Fr 4 days Physical [...] 09/04/2021 7.18 (more content not included)... Normal [facility] Comprehensive metabolic 2000 panelon 02-21-2025 Albumin [Mass/Vol] 2.5 g/dL Low 3.9-4.9 [facility] Comment on above: Order Comment: Speci men Type: BLOOD SPECIMENOrdering Facility: [facility] Address: [address] [place] [address] Performed By: #### 2 4323-8 ####[facility]ATORYCLIA [id number] [place] [address] [place] [facility] ALP [Catalytic activity/Vol] 121 U/L High 38-113 [facility] Comment on above: Order Comment: Speci men Type: BLOOD SPECIMENOrdering Facility: [facility] Address: [address] [place] [address] Performed By: #### 2 4323-8 ####[facility]ORYCLIA [id number] [place] [address] [place] ALT With P-5'-P [Catalytic activity/Vol] 15 U/L Normal 10-54 [facility] Comment on above: Order Comment: Speci men Type: BLOOD SPECIMENOrdering Facility: [facility] Address: [address] [place] [address] Performed By: #### 2 4323-8 ####[facility]ORYCLIA [id number] [place] [address] [place] Anion gap [Moles/Vol] 9 mmol/L Normal 8-15 [facility] Comment on above: Order Comment: Speci men Type: BLOOD SPECIMENOrdering Facility: [facility] Address: [address] [place] [address] Performed By: #### 2 4323-8 ####[facility]ORYCLIA [id number] [place] [address] [place] AST With P-5'-P [Catalytic activity/Vol] 23 U/L Normal 14-40 [facility] Comment on above: Order Comment: Speci men Type: BLOOD SPECIMENOrdering Facility: [facility] Address: [address] [place] [address] Performed By: #### 2 4323-8 ####[facility]ORYCLIA [id number] [place] [address] [place] Bilirubin [Mass/Vol] 0.8 mg/dL Normal 0.2-1.3 [facility] Comment on above: Order Comment: Speci men Type: BLOOD SPECIMENOrdering Facility: [facility] Address: [address] [place] [address] Performed By: #### 2 4323-8 ####[facility]ATORYCLIA [id number] [place] [address] [place] Calcium [Mass/Vol] 8.2 mg/dL Low 8.5-10.2 [facility] Comment on above: Order Comment: Speci men Type: BLOOD SPECIMENOrdering Facility: [facility] Address: [address] [place] [address] Performed By: #### 2 4323-8 ####[facility]ATORYCLIA [id number] [place] [address] [place] Chloride [Moles/Vol] 105 mmol/L Normal 98-107 [facility] Comment on above: Order Comment: Speci men Type: BLOOD SPECIMENOrdering Facility: [facility] Address: [address] [place] [address] Performed By: #### 2 4323-8 ####[facility]ORYCLIA [id number] [place] [id number] [place] CO2 [Moles/Vol] 21 mmol/L Low 22-30 [facility] Comment on above: Order Comment: Speci men Type: BLOOD SPECIMENOrdering Facility: [facility] Address: [address] [place] [address] Performed By: #### 2 4323-8 ####[facility]ATORYCLIA [id number] [place] [address] [place] Creatinine [Mass/Vol] 0.58 mg/dL Low 0.73-1.22 [facility] Comment on above: Order Comment: Speci men Type: BLOOD SPECIMENOrdering Facility: [facility] Address: [address] [place] [address] Performed By: #### 2 4323-8 ####[facility]CLIA [id number] [address] Creatinine and Glomerular filtration rate.predicted panel (S/P/Bld) 110 mL/min/1.73m??? Normal >=60 [facility] Comment on above: Order Comment: Speci men Type: BLOOD SPECIMENOrdering Facility: [facility] Address: [address] [place] [address] Result Comment: Leena mated Glomerular Filtration Rate [...] actual GFR. Performed By: #### 2 4323-8 ####[facility]ATORYCLIA [id number] [address] [place] Glucose [Mass/Vol] 162 mg/dL High 74-99 [facility] Comment on above: Order Comment: Speci men Type: BLOOD SPECIMENOrdering Facility: [facility] Address: [address] [place] [address] Result Comment: The [place] Diabetes Association (ADA) provides guidance for cutoff [...] Medical Care in Diabetes 2016, [place] Diabetes Association. Diabetes Care. 2016.39(Suppl 1). Performed By: #### 2 4323-8 ####[facility]ORYCLIA [id number] [place] [address] [place] Potassium [Moles/Vol] 4.1 mmol/L Normal 3.7-5.1 [facility] Comment on above: Order Comment: Speci [facility] Type: BLOOD SPECIMENOrdering Facility: [facility] Address: [address] [place] [address] Performed By: #### 2 4323-8 ####[facility]ORYCLIA [id number] [place] [address] [place] Protein [Mass/Vol] 6.6 g/dL Normal 6.3-8.0 [facility] Comment on above: Order Comment: Speci men Type: BLOOD SPECIMENOrdering Facility: [facility] Address: [address] [id number] Performed By: #### 2 4323-8 ####[facility]ORYCLIA [id number] [place] [address] [place] Sodium [Moles/Vol] 135 mmol/L Low 136-144 [facility] Comment on above: Order Comment: Speci men Type: BLOOD SPECIMENOrdering Facility: [facility] Address: [address] [place] [address] Performed By: #### 2 4323-8 ####[facility]ORYCLIA [id number] [address] STATES OF [facility] Urea nitrogen [Mass/Vol] 21 mg/dL Normal 9-24 [facility] Comment on above: Order Comment: Speci men Type: BLOOD SPECIMENOrdering Facility: [facility] Address: [address] [place] [address] Performed By: #### 2 4323-8 ####[facility]ORYCLIA [id number] [address] Comprehensive metabolic 2000 panelon 02-20-2025 Albumin [Mass/Vol] 2.3 g/dL Low 3.9-4.9 [facility] Comment on above: Order Comment: Speci men Type: BLOOD SPECIMENOrdering Facility: [facility] Address: [address] [place] [address] Performed By: #### 2 4323-8 ####[facility]ORYCLIA [id number] [address] OF [facility] ALP [Catalytic activity/Vol] 107 U/L Normal 38-113 [facility] Comment on above: Order Comment: Speci men Type: BLOOD SPECIMENOrdering Facility: [facility] Address: [address] [place] [address] Performed By: #### 2 4323-8 ####[facility]ORYCLIA [id number] [address] OF [facility] ALT With P-5'-P [Catalytic activity/Vol] 17 U/L Normal 10-54 [facility] Comment on above: Order Comment: Speci men Type: BLOOD SPECIMENOrdering Facility: [facility] Address: [address] [place] [address] Performed By: #### 2 4323-8 ####[facility]ORYCLIA [id number] [address] Anion gap [Moles/Vol] 8 mmol/L Normal 8-15 [facility] Comment on above: Order Comment: Speci men Type: BLOOD SPECIMENOrdering Facility: [facility] Address: [address] [place] [address] Performed By: #### 2 4323-8 ####[facility]ORYCLIA [id number] [place] [address] [place] AST With P-5'-P [Catalytic activity/Vol] 22 U/L Normal 14-40 [facility] Comment on above: Order Comment: Speci men Type: BLOOD SPECIMENOrdering Facility: [facility] Address: [address] [place] [address] Performed By: #### 2 4323-8 ####[facility]ORYCLIA [id number] [address] [place] Bilirubin [Mass/Vol] 0.8 mg/dL Normal 0.2-1.3 [facility] Comment on above: Order Comment: Speci men Type: BLOOD SPECIMENOrdering Facility: [facility] Address: [address] [place] [address] Performed By: #### 2 4323-8 ####[facility]ORYCLIA [id number] [place] [address] [place] Calcium [Mass/Vol] 7.7 mg/dL Low 8.5-10.2 [facility] Comment on above: Order Comment: Speci men Type: BLOOD SPECIMENOrdering Facility: [facility] Address: [address] [place] [address] Performed By: #### 2 4323-8 ####[facility]ORYCLIA [id number] [place] [address] [place] Chloride [Moles/Vol] 110 mmol/L High 98-107 [facility] Comment on above: Order Comment: Speci men Type: BLOOD SPECIMENOrdering Facility: [facility] Address: [address] [place] [address] Performed By: #### 2 4323-8 ####[facility]ORYCLIA [id number] [place] [address] [place] CO2 [Moles/Vol] 23 mmol/L Normal 22-30 [facility] Comment on above: Order Comment: Speci men Type: BLOOD SPECIMENOrdering Facility: [facility] Address: [address] [place] [address] Performed By: #### 2 4323-8 ####[facility]CLIA [id number] [place] [address] [place] Creatinine [Mass/Vol] 0.60 mg/dL Low 0.73-1.22 [facility] Comment on above: Order Comment: Speci men Type: BLOOD SPECIMENOrdering Facility: [facility] Address: [address] [place] [address] Performed By: #### 2 4323-8 ####[facility]CLIA [id number] [address] Creatinine and Glomerular filtration rate.predicted panel (S/P/Bld) 108 mL/min/1.73m??? Normal >=60 [facility] Comment on above: Order Comment: Speci men Type: BLOOD SPECIMENOrdering Facility: [facility] Address: [address] [place] [address] Result Comment: Leena mated Glomerular Filtration Rate [...] actual GFR. Performed By: #### 2 4323-8 ####[facility]ORYCLIA [id number] [address] [place] Glucose [Mass/Vol] 90 mg/dL Normal 74-99 [facility] Comment on above: Order Comment: Jg valdez Type: BLOOD SPECIMENOrdering Facility: [facility] Address: [address] [place] [address] Result Comment: The [place] Diabetes Association (ADA) provides guidance for cutoff [...] Medical Care in Diabetes 2016, [place] Diabetes Association. Diabetes Care. 2016.39(Suppl 1). Performed By: #### 2 4323-8 ####[facility]ATORYCLIA [id number] [place] [address] [place] Potassium [Moles/Vol] 4.1 mmol/L Normal 3.7-5.1 [facility] Comment on above: Order Comment: Jg valdez Type: BLOOD SPECIMENOrdering Facility: [facility] Address: [address] [place] [address] Performed By: #### 2 4323-8 ####[facility]ORYCLIA [id number] [place] [address] [place] Protein [Mass/Vol] 5.7 g/dL Low 6.3-8.0 [facility] Comment on above: Order Comment: Jg valdez Type: BLOOD SPECIMENOrdering Facility: [facility] Address: [address] [place] [address] Performed By: #### 2 4323-8 ####[facility]ATORYCLIA [id number] [place] [address] [place] Sodium [Moles/Vol] 141 mmol/L Normal 136-144 [facility] Comment on above: Order Comment: Alvaroi men Type: BLOOD SPECIMENOrdering Facility: [facility] Address: [address] [place] [address] Performed By: #### 2 4323-8 ####[facility]ORYCLIA [id number] [place] [address] [place] Urea nitrogen [Mass/Vol] 25 mg/dL High 9-24 [facility] Comment on above: Order Comment: Alvaroi men Type: BLOOD SPECIMENOrdering Facility: [facility] Address: [address] [place] [address] Performed By: #### 2 4323-8 ####[facility]ORYCLIA [id number] [address] CBC panel Auto (Bld)on 02-19 Erythrocyte distribution width (RBC) [Ratio] 14.8 % Normal 11.5-15.0 [facility] Comment on above: Order Comment: Speci men Type: BLOOD SPECIMENOrdering Facility: [facility] Address: [address] [place] [address] Performed By: #### 5 8410-2 ####[facility]ORYCLIA [id number] [address] OF [facility] Hematocrit (Bld) [Volume fraction] 32.5 % Low 39.0-51.0 [facility] Comment on above: Order Comment: Speci men Type: BLOOD SPECIMENOrdering Facility: [facility] Address: [address] [place] [address] Performed By: #### 5 8410-2 ####[facility]ORYCLIA [id number] [address] Hemoglobin (Bld) [Mass/Vol] 11.1 g/dL Low 13.0-17.0 [facility] Comment on above: Order Comment: Speci men Type: BLOOD SPECIMENOrdering Facility: [facility] Address: [address] [place] [address] Performed By: #### 5 8410-2 ####[facility]ATORYCLIA [id number] [address] [place] [facility] MCH (RBC) [Entitic mass] 30.5 pg Normal 26.0-34.0 [facility] Comment on above: Order Comment: Speci men Type: BLOOD SPECIMENOrdering Facility: [facility] Address: [address] [place] [address] Performed By: #### 5 8410-2 ####[facility]ATORYCLIA [id number] [place] [address] [place] MCHC (RBC) [Mass/Vol] 34.2 g/dL Normal 30.5-36.0 [facility] Comment on above: Order Comment: Speci men Type: BLOOD SPECIMENOrdering Facility: [facility] Address: [address] [place] [address] Performed By: #### 5 8410-2 ####[facility]ORYCLIA [id number] [address] OF [facility] MCV (RBC) [Entitic vol] 89.3 fL Normal 80.0-100.0 [facility] Comment on above: Order Comment: Speci men Type: BLOOD SPECIMENOrdering Facility: [facility] Address: [address] [place] [address] Performed By: #### 5 8410-2 ####[facility]ORYCLIA [id number] [address] Nucleated RBC (Bld) [#/Vol] 10*3/uL Normal <0.01 [facility] Comment on above: Order Comment: Speci men Type: BLOOD SPECIMENOrdering Facility: [facility] Address: [address] [place] [address] Performed By: #### 5 8410-2 ####[facility]ORYCLIA [id number] [address] OF [facility] Platelet mean volume (Bld) [Entitic vol] 11.8 fL Normal 9.0-12.7 [facility] Comment on above: Order Comment: Speci men Type: BLOOD SPECIMENOrdering Facility: [facility] Address: [address] [place] [address] Performed By: #### 5 8410-2 ####[facility]ORYCLIA [id number] [address] [place] Platelets (Bld) [#/Vol] 87 10*3/uL Low 150-400 [facility] Comment on above: Order Comment: Speci men Type: BLOOD SPECIMENOrdering Facility: [facility] Address: [address], [place] [address] Result Comment: No c lot detected. Performed By: #### 5 8410-2 ####[facility]ORYCLIA [id number] [address] OF [facility] RBC (Bld) [#/Vol] 3.64 10*6/uL Low 4.20-6.00 [facility] Comment on above: Order Comment: Speci men Type: BLOOD SPECIMENOrdering Facility: [facility] Address: [address] [place] [address] Performed By: #### 5 8410-2 ####[facility]ORYCLIA [id number] [address] WBC (Bld) [#/Vol] 9.94 10*3/uL Normal 3.70-11.00 [facility] Comment on above: Order Comment: Speci men Type: BLOOD SPECIMENOrdering Facility: [facility] Address: [address] [place] [address] Performed By: #### 5 8410-2 ####[facility]ATORYCLIA [id number] [address] CNPNon 02-19-2025 CNPN Telephone ([facility]) ANMOL REYNOLDS ([id number]) 1960 M Date Time Provider Department 02/19/25 ANMOL HERBERT During your visit today, we recorded the following information about you: Anmol Herbert MD 02/19/2025 2:58 PM Signed Needs outpt cysto, pyelograms, bilateral stent change vs removal in 2-3 weeks. Comfort Sotelo 03/08/2025 10:16 AM Signed Patient is scheduled and [facility] was notified. Information was faxed. Comfort Sotelo [...] Comments as of 02/17/2025: Verified medications with [facility] 02/17/2025 Problem List As Of Date 02/19/2025 Noted Resolved NO SHOW [[id number]] 08/31/2013 05/29/2020 Perineal abscess [L02.215] 06/13/2019 05/29/2020 [...] status [R41.82 (more content not included)... Normal [facility] Calcium.ionized [Moles/Vol]o n 02-19-2025 Calcium.ionized (BldV) [Mass/Vol] 1.03 mmol/L Low 1.08-1.30 [facility] Comment on above: Order Comment: Speci men Type: BLOOD SPECIMENOrdering Facility: [facility] Address: [address] [place] [address] Performed By: #### 1 995-0 ####[facility]ORATORYCLIA [id number] [place] [address] [place] Calcium.ionized adjusted to pH 7.4 (Bld) [Moles/Vol] 1.05 mmol/L Low 1.08-1.30 [facility] Comment on above: Order Comment: Speci men Type: BLOOD SPECIMENOrdering Facility: [facility] Address: [address] [place] [address] Performed By: #### 1 995-0 ####[facility]ORYCLIA [id number] [address] Comprehensive metabolic 2000 panelon 02-19-2025 Albumin [Mass/Vol] 2.3 g/dL Low 3.9-4.9 [facility] Comment on above: Order Comment: Speci men Type: BLOOD SPECIMENOrdering Facility: [facility] Address: [address] [place] [address] Performed By: #### 2 4323-8 ####[facility]ORYCLIA [id number] [address] OF [facility] ALP [Catalytic activity/Vol] 112 U/L Normal 38-113 [facility] Comment on above: Order Comment: Speci men Type: BLOOD SPECIMENOrdering Facility: [facility] Address: [address] [place] [address] Performed By: #### 2 4323-8 ####[facility]ORYCLIA [id number] [address] ALT With P-5'-P [Catalytic activity/Vol] 21 U/L Normal 10-54 [facility] Comment on above: Order Comment: Speci men Type: BLOOD SPECIMENOrdering Facility: [facility] Address: [address] [place] [address] Performed By: #### 2 4323-8 ####[facility]ORYCLIA [id number] [address] Anion gap [Moles/Vol] 10 mmol/L Normal 8-15 [facility] Comment on above: Order Comment: Speci men Type: BLOOD SPECIMENOrdering Facility: [facility] Address: [address] [place] [address] Performed By: #### 2 4323-8 ####[facility]ORYCLIA [id number] [place] [address] [place] AST With P-5'-P [Catalytic activity/Vol] 25 U/L Normal 14-40 [facility] Comment on above: Order Comment: Speci men Type: BLOOD SPECIMENOrdering Facility: [facility] Address: [address] [place] [address] Performed By: #### 2 4323-8 ####[facility] LABORATORYCLIA [id number] [place] [address] [place] Bilirubin [Mass/Vol] 0.5 mg/dL Normal 0.2-1.3 [facility] Comment on above: Order Comment: Speci men Type: BLOOD SPECIMENOrdering Facility: [facility] Address: [address] [place] [address] Performed By: #### 2 4323-8 ####[facility]ORATORYCLIA [id number] [place] [address] [place] Calcium [Mass/Vol] 7.8 mg/dL Low 8.5-10.2 [facility] Comment on above: Order Comment: Speci men Type: BLOOD SPECIMENOrdering Facility: [facility] Address: [address] [place] [address] Performed By: #### 2 4323-8 ####[facility]ATORYCLIA [id number] [place] [address] [place] Chloride [Moles/Vol] 106 mmol/L Normal 98-107 [facility] Comment on above: Order Comment: Speci men Type: BLOOD SPECIMENOrdering Facility: [facility] Address: [address] [place] [address] Performed By: #### 2 4323-8 ####[facility]ATORYCLIA [id number] [place] [address] [place] CO2 [Moles/Vol] 21 mmol/L Low 22-30 [facility] Comment on above: Order Comment: Speci men Type: BLOOD SPECIMENOrdering Facility: [facility] Address: [address] [place] [address] Performed By: #### 2 4323-8 ####[facility]ORATORYCLIA [id number] [place] [address] [place] Creatinine [Mass/Vol] 0.64 mg/dL Low 0.73-1.22 [facility] Comment on above: Order Comment: Jg valdez Type: BLOOD SPECIMENOrdering Facility: [facility] Address: [address] [place] [address] Performed By: #### 2 4323-8 ####[facility]OSPITALIA [id number] [address] Creatinine and Glomerular filtration rate.predicted panel (S/P/Bld) 106 mL/min/1.73m??? Normal >=60 [facility] Comment on above: Order Comment: Jg valdez Type: BLOOD SPECIMENOrdering Facility: [facility] Address: [address] [place] [address] Result Comment: Leena mated Glomerular Filtration Rate [...] actual GFR. Performed By: #### 2 4323-8 ####[facility]ORATORYIA [id number] [address] [place] Glucose [Mass/Vol] 115 mg/dL High 74-99 [facility] Comment on above: Order Comment: Jg valdez Type: BLOOD SPECIMENOrdering Facility: [facility] Address: [address] [place] [address] Result Comment: The [place] Diabetes Association (ADA) provides guidance for cutoff [...] Medical Care in Diabetes 2016, [place] Diabetes Association. Diabetes Care. 2016.39(Suppl 1). Performed By: #### 2 4323-8 ####[facility]ATORYCLIA [id number] [place] [address] [place] Potassium [Moles/Vol] 3.7 mmol/L Normal 3.7-5.1 [facility] Comment on above: Order Comment: Speci men Type: BLOOD SPECIMENOrdering Facility: [facility] Address: [address] [place] [address] Performed By: #### 2 4323-8 ####[facility]ORATORYCLIA [id number] [address] STATES OF [facility] Protein [Mass/Vol] 5.5 g/dL Low 6.3-8.0 [facility] Comment on above: Order Comment: Speci men Type: BLOOD SPECIMENOrdering Facility: [facility] Address: [address] [place] [address] Performed By: #### 2 4323-8 ####[facility]ORATORYCLIA [id number] [address] [facility] Sodium [Moles/Vol] 137 mmol/L Normal 136-144 [facility] Comment on above: Order Comment: Speci men Type: BLOOD SPECIMENOrdering Facility: [facility] Address: [address] [place] [address] Performed By: #### 2 4323-8 ####[facility]ORATORYCLIA [id number] [place] [id number] [place] Urea nitrogen [Mass/Vol] 36 mg/dL High 9-24 [facility] Comment on above: Order Comment: Speci men Type: BLOOD SPECIMENOrdering Facility: [facility] Address: [address] [place] [address] Performed By: #### 2 4323-8 ####[facility]ORATORYCLIA [id number] [place] [id number] [place] Urine Cultureon 02-19-2025 URC 412-25 Citrobacter freundii [place] Count 80,000-100,000 Providencia stuartii Providencia stuartii PMIR [place] Count >100,000 Proteus mirabilis [place] Count 25,000-50,000 Citrobacter freundii: REACTION Enterococcus faecalis [...] R Vancomycin Islt HARINDER 1 S Normal [facility] Comment on above: Performed By: #### L 501.6710, L101.9900, L501.8820 #### [facility] [place], [address] aPTT PPPon 02-19-2025 aPTT Coag (PPP) [Time] 68.5 s High 23.0-32.4 [facility] Comment on above: Order Comment: Speci men Type: BLOOD SPECIMENOrdering Facility: [facility] Address: [address] [place] [address] Performed By: #### 1 4979-9 ####[facility]ATORYCLIA [id number] [address] [place] aPTT Coag (PPP) [Time] 71.1 s High 23.0-32.4 [facility] Comment on above: Order Comment: Speci men Type: BLOOD SPECIMENOrdering Facility: [facility] Address: [address] [place] [address] Performed By: #### 1 4979-9 ####[facility]POLISCLIA [id number] [address] OF [facility] CBC panel Auto (Bld)on 02-18 Erythrocyte distribution width (RBC) [Ratio] 14.9 % Normal 11.5-15.0 [facility] Comment on above: Order Comment: Speci men Type: BLOOD SPECIMENOrdering Facility: [facility] Address: [address] [place] [address] Performed By: #### 5 8410-2 ####[facility]POLISCLIA [id number] [address] STATES OF [facility] Hematocrit (Bld) [Volume fraction] 33.9 % Low 39.0-51.0 [facility] Comment on above: Order Comment: Speci men Type: BLOOD SPECIMENOrdering Facility: [facility] Address: [address] [place] [address] Performed By: #### 5 8410-2 ####[facility]ATORYCLIA [id number] [address] Hemoglobin (Bld) [Mass/Vol] 11.3 g/dL Low 13.0-17.0 [facility] Comment on above: Order Comment: Speci men Type: BLOOD SPECIMENOrdering Facility: [facility] Address: [address] [place] [address] Performed By: #### 5 8410-2 ####[facility]ATORYCLIA [id number] [address] MCH (RBC) [Entitic mass] 30.3 pg Normal 26.0-34.0 [facility] Comment on above: Order Comment: Speci men Type: BLOOD SPECIMENOrdering Facility: [facility] Address: [address] [place] [address] Performed By: #### 5 8410-2 ####[facility]ATORYCLIA [id number] [address] MCHC (RBC) [Mass/Vol] 33.3 g/dL Normal 30.5-36.0 [facility] Comment on above: Order Comment: Speci men Type: BLOOD SPECIMENOrdering Facility: [facility] Address: [address] [place] [address] Performed By: #### 5 8410-2 ####[facility]ORATORYCLIA [id number] [address] MCV (RBC) [Entitic vol] 90.9 fL Normal 80.0-100.0 [facility] Comment on above: Order Comment: Speci men Type: BLOOD SPECIMENOrdering Facility: [facility] Address: [address] [place] [address] Performed By: #### 5 8410-2 ####[facility]ATORYCLIA [id number] [address] Nucleated RBC (Bld) [#/Vol] 10*3/uL Normal <0.01 [facility] Comment on above: Order Comment: Speci men Type: BLOOD SPECIMENOrdering Facility: [facility] Address: [address] [place] [address] Performed By: #### 5 8410-2 ####[facility]ATORYCLIA [id number] [address] Platelet mean volume (Bld) [Entitic vol] 11.9 fL Normal 9.0-12.7 [facility] Comment on above: Order Comment: Speci men Type: BLOOD SPECIMENOrdering Facility: [facility] Address: [address] [place] [address] Performed By: #### 5 8410-2 ####[facility]ORATORYCLIA [id number] [address] STATES OF [facility] Platelets (Bld) [#/Vol] 69 10*3/uL Low 150-400 [facility] Comment on above: Order Comment: Speci men Type: BLOOD SPECIMENOrdering Facility: [facility] Address: [address] [place] [address] Result Comment: No c lot detected. Performed By: #### 5 8410-2 ####[facility]ATORYCLIA [id number] [address] STATES OF [facility] RBC (Bld) [#/Vol] 3.73 10*6/uL Low 4.20-6.00 [facility] Comment on above: Order Comment: Speci men Type: BLOOD SPECIMENOrdering Facility: [facility] Address: [address] [place] [address] Performed By: #### 5 8410-2 ####[facility]ATORYCLIA [id number] [address] OF [facility] WBC (Bld) [#/Vol] 13.39 10*3/uL High 3.70-11.00 [facility] Comment on above: Order Comment: Speci men Type: BLOOD SPECIMENOrdering Facility: [facility] Address: [address] [place] [address] Performed By: #### 5 8410-2 ####[facility]ATORYCLIA [id number] [address] CONSULT PROGon 02-18-2025 CONSULT PROG HNO ID: [id number] Author: TIMMY MARTINEZ RPh Service: Pharmacy Author Type: Pharmacist Type: Consult Progress Note Filed: 02/18/2025 11:29 Note Text: PHARMACY VANCOMYCIN DOSING NOTE Patient Name: Anmol Reynolds Admission Date: 02/16/2025 Date of Consult: 02/18/2025 Time of Consult: 11:29 AM RECOMMENDATIONS/PLAN: Pharmacy consulted for vancomycin dosing for Anmlo Reynolds, a 64 year old male. Vancomycin therapy has been discontinued. Vancomycin level(s) have been discontinued: Yes. The pharmacy vancomycin dosing service will sign off. Thank you for allowing us to participate in this patient's care. Please contact pharmacy if there are questions. Timmy Martinez RPh [facility] CONSULT PROG HNO ID: [id number] Author: RADHA GRAHAM RPh Service: Pharmacy Author [...] any questions, please contact Radha Graham at [phone]. Estimated Creatinine Clearance: 86.2 mL/min (based on [...] RPh February 18, 2025 7:17 AM Normal [facility] Calcium.ionized [Moles/Vol]o n 02-18-2025 Calcium.ionized (BldV) [Mass/Vol] 1.07 mmol/L Low 1.08-1.30 [facility] Comment on above: Order Comment: Speci men Type: BLOOD SPECIMENOrdering Facility: [facility] Address: [address] [place] [address] Performed By: #### 1 995-0 ####[facility]ORATORYCLIA [id number] [address] Calcium.ionized adjusted to pH 7.4 (Bld) [Moles/Vol] 1.07 mmol/L Low 1.08-1.30 [facility] Comment on above: Order Comment: Speci men Type: BLOOD SPECIMENOrdering Facility: [facility] Address: [address] [place] [address] Performed By: #### 1 995-0 ####[facility]ATORYCLIA [id number] [address] Comprehensive metabolic 2000 panelon 02-18-2025 Albumin [Mass/Vol] 2.3 g/dL Low 3.9-4.9 [facility] Comment on above: Order Comment: Speci men Type: BLOOD SPECIMENOrdering Facility: [facility] Address: [address] [place] [address] Performed By: #### 2 4323-8, 59845-6 ####[facility]ATORYCLIA [id number] [address] ALP [Catalytic activity/Vol] 115 U/L High 38-113 [facility] Comment on above: Order Comment: Speci men Type: BLOOD SPECIMENOrdering Facility: [facility] Address: [address] [place] [address] Performed By: #### 2 4323-8, 17817-2 ####[facility]ORATORYCLIA [id number] [place] [id number] [facility] ALT With P-5'-P [Catalytic activity/Vol] 25 U/L Normal 10-54 [facility] Comment on above: Order Comment: Speci men Type: BLOOD SPECIMENOrdering Facility: [facility] Address: [address] [place] [address] Performed By: #### 2 4323-8, ####[facility] LABORATORYCLIA [id number] [place] [address] [place] Anion gap [Moles/Vol] 11 mmol/L Normal 8-15 [facility] Comment on above: Order Comment: Speci men Type: BLOOD SPECIMENOrdering Facility: [facility] Address: [address] [place] [address] Performed By: #### 2 432-8, ####[facility] LABORATORYCLIA [id number] [place] [address] [place] AST With P-5'-P [Catalytic activity/Vol] 38 U/L Normal 14-40 [facility] Comment on above: Order Comment: Speci men Type: BLOOD SPECIMENOrdering Facility: [facility] Address: [address] [place] [address] Performed By: #### 2 432-8, ####[facility] LABORATORYCLIA [id number] [place] [address] [place] Bilirubin [Mass/Vol] 0.6 mg/dL Normal 0.2-1.3 [facility] Comment on above: Order Comment: Speci men Type: BLOOD SPECIMENOrdering Facility: [facility] Address: [address] [place] [address] Performed By: #### 2 4323-8, ####[facility]ATORYCLIA [id number] [address] [place] Calcium [Mass/Vol] 7.8 mg/dL Low 8.5-10.2 [facility] Comment on above: Order Comment: Speci men Type: BLOOD SPECIMENOrdering Facility: [facility] Address: [address] [place] [address] Performed By: #### 2 4323-8, ####[facility]ATORYCLIA [id number] [place] [address] [place] Chloride [Moles/Vol] 104 mmol/L Normal 98-107 [facility] Comment on above: Order Comment: Speci men Type: BLOOD SPECIMENOrdering Facility: [facility] Address: [address] [place] [address] Performed By: #### 2 4323-8, ####[facility]ATORYCLIA [id number] [place] [address] [place] CO2 [Moles/Vol] 20 mmol/L Low 22-30 [facility] Comment on above: Order Comment: Speci men Type: BLOOD SPECIMENOrdering Facility: [facility] Address: [address] [place] [address] Performed By: #### 2 4323-8, ####[facility]ATORYCLIA [id number] [address] OF [facility] Creatinine [Mass/Vol] 1.04 mg/dL Normal 0.73-1.22 [facility] Comment on above: Order Comment: Speci men Type: BLOOD SPECIMENOrdering Facility: [facility] Address: [address] [place] [address] Performed By: #### 2 4323-8, ####[facility]ATORYCLIA [id number] [address] Creatinine and Glomerular filtration rate.predicted panel (S/P/Bld) 81 mL/min/1.73m??? Normal >=60 [facility] Comment on above: Order Comment: Speci men Type: BLOOD SPECIMENOrdering Facility: [facility] Address: [address] [place] [address] Result Comment: Leena mated Glomerular Filtration Rate [...] actual GFR. Performed By: #### 2 4323-8, ####[facility]ATORYCLIA [id number] [place] [address] [place] Glucose [Mass/Vol] 177 mg/dL High 74-99 [facility] Comment on above: Order Comment: Jg valdez Type: BLOOD SPECIMENOrdering Facility: [facility] Address: [address] [place] [address] Result Comment: The [place] Diabetes Association (ADA) provides guidance for cutoff [...] Medical Care in Diabetes 2016, [place] Diabetes Association. Diabetes Care. 2016.39(Suppl 1). Performed By: #### 2 4323-8, ####[facility]ATORYCLIA [id number] [place] [address] [place] Potassium [Moles/Vol] 3.9 mmol/L Normal 3.7-5.1 [facility] Comment on above: Order Comment: Jg valdez Type: BLOOD SPECIMENOrdering Facility: [facility] Address: [address] [place] [address] Performed By: #### 2 4323-8, ####[facility]ORYCLIA [id number] [place] [address] [place] Protein [Mass/Vol] 5.8 g/dL Low 6.3-8.0 [facility] Comment on above: Order Comment: Jg valdez Type: BLOOD SPECIMENOrdering Facility: [facility] Address: [address] [place] [address] Performed By: #### 2 4323-8, ####[facility]ATORYCLIA [id number] [address] STATES OF [facility] Sodium [Moles/Vol] 135 mmol/L Low 136-144 [facility] Comment on above: Order Comment: Speci men Type: BLOOD SPECIMENOrdering Facility: [facility] Address: [address] [place] [address] Performed By: #### 2 4323-8, ####[facility]ATORYCLIA [id number] [place] [address] [place] Urea nitrogen [Mass/Vol] 37 mg/dL High 9-24 [facility] Comment on above: Order Comment: Speci men Type: BLOOD SPECIMENOrdering Facility: [facility] Address: [address] [place] [address] Performed By: #### 2 4323-8, ####[facility]ATORYCLIA [id number] [address] [place] Magnesium SerPl-mCncon 02-18 Magnesium [Mass/Vol] 2.3 mg/dL Normal 1.7-2.3 [facility] Comment on above: Order Comment: Speci men Type: BLOOD SPECIMENOrdering Facility: [facility] Address: [address] [place] [address] Performed By: #### 2 4323-8, ####[facility]ATORYCLIA [id number] [address] [place] aPTT PPPon 02-18-2025 aPTT Coag (PPP) [Time] 40.2 s High 23.0-32.4 [facility] Comment on above: Order Comment: Speci men Type: BLOOD SPECIMENOrdering Facility: [facility] Address: [address] [place] [address] Performed By: #### 1 4979-9 ####[facility]ATORYCLIA [id number] [place] [address] aPTT Coag (PPP) [Time] 35.5 s High 23.0-32.4 [facility] Comment on above: Order Comment: Speci men Type: BLOOD SPECIMENOrdering Facility: [facility] Address: [address] [place] [address] Performed By: #### 1 4979-9 ####[facility]ATORYCLIA [id number] [address] aPTT Coag (PPP) [Time] 33.2 s High 23.0-32.4 [facility] Comment on above: Order Comment: Speci men Type: BLOOD SPECIMENOrdering Facility: [facility] Address: [address] [place] [address] Performed By: #### 1 4979-9 ####[facility]ATORYCLIA [id number] [address] aPTT Coag (PPP) [Time] 51.0 s High 23.0-32.4 [facility] Comment on above: Order Comment: Speci men Type: BLOOD SPECIMENOrdering Facility: [facility] Address: [address] [place] [address] Performed By: #### 1 4979-9 ####[facility]ATORYCLIA [id number] [address] ALLIED HEALTHon 02-17-2025 ALLIED HEALTH HNO ID: [id number] Author: JANEL SIMEON RT(Ector) Service: Radiology Author [...] PATIENT PRESENTS WITH AN IMPLANTABLE OR ATTACHED HOME AND SCHOOL VISITOR: No RADIOLOGY DEPARTMENT: General X-ray: Exam(s) Completed: Abdomen X-Ray: Abdomen PERIPHERAL IV DATA: Not applicable SIGNED BY: RT Chelita(R) February 17, 2025 7:57 AM Normal [facility] Bacteria Spec Resp Culton Bacteria identified Respiratory [...] , Intermediate >4 , Resistant >8 Abnormal [facility] Comment on above: Performed By: #### 3 2355-0 ####[facility]ATORYCLIA [id number] [address] STATES OF [facility] CBC panel Auto (Bld)on 02-17 Erythrocyte distribution width (RBC) [Ratio] 15.0 % Normal 11.5-15.0 [facility] Comment on above: Order Comment: Speci [facility] Type: BLOOD SPECIMENOrdering Facility: [facility] Address: [address] [place] [address] Performed By: #### 5 8410-2 ####[facility]ATORYCLIA [id number] [address] [facility] Hematocrit (Bld) [Volume fraction] 41.4 % Normal 39.0-51.0 [facility] Comment on above: Order Comment: Speci men Type: BLOOD SPECIMENOrdering Facility: [facility] Address: [address] [place] [address] Performed By: #### 5 8410-2 ####[facility]ORYCLIA [id number] [address] Hemoglobin (Bld) [Mass/Vol] 13.1 g/dL Normal 13.0-17.0 [facility] Comment on above: Order Comment: Speci men Type: BLOOD SPECIMENOrdering Facility: [facility] Address: [address] [place] [address] Performed By: #### 5 8410-2 ####[facility]ORYCLIA [id number] [address] MCH (RBC) [Entitic mass] 29.9 pg Normal 26.0-34.0 [facility] Comment on above: Order Comment: Speci men Type: BLOOD SPECIMENOrdering Facility: [facility] Address: [address] [place] [address] Performed By: #### 5 8410-2 ####[facility]ATORYCLIA [id number] [address] STATES OF [facility] MCHC (RBC) [Mass/Vol] 31.6 g/dL Normal 30.5-36.0 [facility] Comment on above: Order Comment: Speci men Type: BLOOD SPECIMENOrdering Facility: [facility] Address: [address] [place] [address] Performed By: #### 5 8410-2 ####[facility]ATORYCLIA [id number] [address] MCV (RBC) [Entitic vol] 94.5 fL Normal 80.0-100.0 [facility] Comment on above: Order Comment: Speci men Type: BLOOD SPECIMENOrdering Facility: [facility] Address: [address] [place] [address] Performed By: #### 5 8410-2 ####[facility]ORYCLIA [id number] [address] Nucleated RBC (Bld) [#/Vol] 10*3/uL Normal <0.01 [facility] Comment on above: Order Comment: Speci men Type: BLOOD SPECIMENOrdering Facility: [facility] Address: [address] [place] [address] Performed By: #### 5 8410-2 ####[facility]ATORYCLIA [id number] [address] [place] Platelet mean volume (Bld) [Entitic vol] 12.0 fL Normal 9.0-12.7 [facility] Comment on above: Order Comment: Speci men Type: BLOOD SPECIMENOrdering Facility: [facility] Address: [address] [place] [address] Performed By: #### 5 8410-2 ####[facility]ORYCLIA [id number] [address] Platelets (Bld) [#/Vol] 64 10*3/uL Low 150-400 [facility] Comment on above: Order Comment: Speci men Type: BLOOD SPECIMENOrdering Facility: [facility] Address: [address] [place] [address] Result Comment: No c lot detected. Performed By: #### 5 8410-2 ####[facility]ATORYCLIA [id number] [address] OF [facility] RBC (Bld) [#/Vol] 4.38 10*6/uL Normal 4.20-6.00 [facility] Comment on above: Order Comment: Speci men Type: BLOOD SPECIMENOrdering Facility: [facility] Address: [address] [place] [address] Performed By: #### 5 8410-2 ####[facility]ATORYCLIA [id number] [address] OF [facility] WBC (Bld) [#/Vol] 14.96 10*3/uL High 3.70-11.00 [facility] Comment on above: Order Comment: Speci men Type: BLOOD SPECIMENOrdering Facility: [facility] Address: [address] [place] [address] Performed By: #### 5 8410-2 ####[facility]ATORYCLIA [id number] [address] OF [facility] Erythrocyte distribution width (RBC) [Ratio] 14.8 % Normal 11.5-15.0 [facility] Comment on above: Order Comment: Speci men Type: BLOOD SPECIMENOrdering Facility: [facility] Address: [address] [place] [address] Performed By: #### 5 8410-2 ####[facility]ATORYCLIA [id number] [address] Hematocrit (Bld) [Volume fraction] 36.6 % Low 39.0-51.0 [facility] Comment on above: Order Comment: Speci men Type: BLOOD SPECIMENOrdering Facility: [facility] Address: [address] [place] [address] Performed By: #### 5 8410-2 ####[facility]ATORYCLIA [id number] [address] Hemoglobin (Bld) [Mass/Vol] 11.9 g/dL Low 13.0-17.0 [facility] Comment on above: Order Comment: Speci men Type: BLOOD SPECIMENOrdering Facility: [facility] Address: [address] [place] [address] Performed By: #### 5 8410-2 ####[facility] LABORATORYCLIA [id number] [address] MCH (RBC) [Entitic mass] 30.1 pg Normal 26.0-34.0 [facility] Comment on above: Order Comment: Speci men Type: BLOOD SPECIMENOrdering Facility: [facility] Address: [address] [place] [address] Performed By: #### 5 8410-2 ####[facility] LABORATORYCLIA [id number] [address] MCHC (RBC) [Mass/Vol] 32.5 g/dL Normal 30.5-36.0 [facility] Comment on above: Order Comment: Speci men Type: BLOOD SPECIMENOrdering Facility: [facility] Address: [address] [place] [address] Performed By: #### 5 8410-2 ####[facility] LABORATORYCLIA [id number] [address] MCV (RBC) [Entitic vol] 92.7 fL Normal 80.0-100.0 [facility] [facility] Comment on above: Order Comment: Speci men Type: BLOOD SPECIMENOrdering Facility: [facility] Address: [address] [place] [address] Performed By: #### 5 8410-2 ####[facility]ORATORYCLIA [id number] [address] Nucleated RBC (Bld) [#/Vol] 10*3/uL Normal <0.01 [facility] Comment on above: Order Comment: Speci men Type: BLOOD SPECIMENOrdering Facility: [facility] Address: [address] [place] [address] Performed By: #### 5 8410-2 ####[facility]ORATORYCLIA [id number] [address] [place] Platelet mean volume (Bld) [Entitic vol] 11.7 fL Normal 9.0-12.7 [facility] Comment on above: Order Comment: Speci men Type: BLOOD SPECIMENOrdering Facility: [facility] Address: [address] [place] [address] Performed By: #### 5 8410-2 ####[facility]ATORYCLIA [id number] [address] [place] Platelets (Bld) [#/Vol] 93 10*3/uL Low 150-400 [facility] Comment on above: Order Comment: Speci men Type: BLOOD SPECIMENOrdering Facility: [facility] Address: [address] [place] [address] Result Comment: No c lot detected. Performed By: #### 5 8410-2 ####[facility]ORATORYCLIA [id number] [address] [place] RBC (Bld) [#/Vol] 3.95 10*6/uL Low 4.20-6.00 [facility] Comment on above: Order Comment: Speci men Type: BLOOD SPECIMENOrdering Facility: [facility] Address: [address] [place] [address] Performed By: #### 5 8410-2 ####[facility]ORATORYCLIA [id number] [address] [place] WBC (Bld) [#/Vol] 19.64 10*3/uL High 3.70-11.00 [facility] Comment on above: Order Comment: Speci men Type: BLOOD SPECIMENOrdering Facility: [facility] Address: [address] [place] [address] Performed By: #### 5 8410-2 ####[facility]ORATORYCLIA [id number] [address] CONSULTon 02-17-2025 CONSULT HNO ID: [id number] Author: GAYLE SCOTT MD Service: Infectious Disease [...] and UTI. Spinal cord injury residing at [facility], presented [facility]16/2025 for unresponsiveness when normally alert [...] that although she was not at the [facility] she was called and told he was [...] 12.5 g (more content not included)... Normal [facility] CONSULT HNO ID: [id number] Author: ANMOL HERBERT MD Service: Urology Author Type: Resident Type: Consults Filed: 02/19/2025 14:56 Note Text: Attestation signed by Anmol Herbert MD at 02/19/2025 2:56 PM I saw and evaluated the patient. Discussed with the resident and agree with resident's findings and plan as documented in the resident's note. Reviewed [facility] hx and imaging. Currently improving. Discussed plan w/ ID (Dr. Scott) Plan on outpt cysto, pyelograms, stent change vs removal in 2-3 weeks. Anmol Herbert MD Urology Consult 02/16/2025 HISTORY OF PRESENT ILLNESS: The patient is a 64 year old male known to [facility] urology, with past medical history [...] Rfl: me (more content not included)... Normal [facility] CONSULT PROGon 02-17-2025 CONSULT PROG HNO ID: [id number] Author: JESSICA CLEMENT RPh Service: Pharmacy Author [...] questions, [place] [phone]. Age: [age] year old Allergies: ALLERGIES No [...] 6.1 (L) 12/02/2021 1246 13.7 Jessica Clement [facility] CONSULT PROG HNO ID: [id number] Author: YARI CAMARGO APRN.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 Service: Wound/Ostomy Author Type: Nurse Practitioner Type: Consult Progress Note Filed: 02/17/2025 10:33 Note Text: Summary: Inpatient Wound Care WOUND CARE SERVICE CONSULT PATTERN MARKING SUPERVISOR NOTE SERVICE DATE: 02/17/2025 SERVICE TIME: 0809 [...] who is seen today with Katlin Vasquez, Wound/insurance appraiser, and presented to hospital with complaints of [...] long-term current use of insulin ([facility]) 01/18/2021 Ureteral stone 11/25/2021 UTI (urinary tract infection) 11/26/2021 Vertebral osteomyelitis ([facility]) 01/04/2022 PAST SURGICAL HISTORY Procedure Laterality [...] PRN cyc (more content not included)... Normal [facility] CONSULT PROG HNO ID: [id number] Author: RUBI RIVER RPh Service: Pharmacy Author [...] have any questions, [place] [phone]. Age: [age] year old Allergies: ALLERGIES No [...] 1246 13.7 12/01/2021 0428 14.2 [place], [facility] Normal [facility] Comprehensive metabolic 2000 panelon 02-17-2025 Albumin [Mass/Vol] 2.5 g/dL Low 3.9-4.9 [facility] Comment on above: Order Comment: Speci men Type: BLOOD SPECIMENOrdering Facility: [facility] Address: [address] [place] [address] Performed By: #### 2 777-1, 30834-2 ####[facility]ORATORYCLIA [id number] [address] [place] ALP [Catalytic activity/Vol] 174 U/L High 38-113 [facility] Comment on above: Order Comment: Speci men Type: BLOOD SPECIMENOrdering Facility: [facility] Address: [address] [place] [address] Performed By: #### 2 777-1, 71161-7 ####[facility]ORATORYCLIA [id number] [address] [place] ALT With P-5'-P [Catalytic activity/Vol] 21 U/L Normal 10-54 [facility] Comment on above: Order Comment: Speci men Type: BLOOD SPECIMENOrdering Facility: [facility] Address: [address] [place] [address] Performed By: #### 2 777-1, 58950-1 ####[facility]ATORYCLIA [id number] [address] [place] Anion gap [Moles/Vol] 11 mmol/L Normal 8-15 [facility] Comment on above: Order Comment: Speci men Type: BLOOD SPECIMENOrdering Facility: [facility] Address: [address] [place] [address] Performed By: #### 2 777-1, 40155-3 ####[facility]ORATORYCLIA [id number] [place] [address] [place] AST With P-5'-P [Catalytic activity/Vol] 41 U/L High 14-40 [facility] Comment on above: Order Comment: Speci men Type: BLOOD SPECIMENOrdering Facility: [facility] Address: [address] [place] [address] Performed By: #### 2 777-1, 54283-0 ####[facility]ORATORYCLIA [id number] [place] [address] [place] Bilirubin [Mass/Vol] 0.9 mg/dL Normal 0.2-1.3 [facility] Comment on above: Order Comment: Speci men Type: BLOOD SPECIMENOrdering Facility: [facility] Address: [address] [place] [address] Performed By: #### 2 777-1, 98145-4 ####[facility]ORATORYCLIA [id number] [place] [address] [place] Calcium [Mass/Vol] 8.2 mg/dL Low 8.5-10.2 [facility] Comment on above: Order Comment: Speci men Type: BLOOD SPECIMENOrdering Facility: [facility] Address: [address] [place] [address] Performed By: #### 2 777-1, 42097-2 ####[facility]ATORYCLIA [id number] [place] [address] [place] Chloride [Moles/Vol] 104 mmol/L Normal 98-107 [facility] Comment on above: Order Comment: Speci men Type: BLOOD SPECIMENOrdering Facility: [facility] Address: [address] [place] [address] Performed By: #### 2 777-1, 08106-5 ####[facility]ORATORYCLIA [id number] [place] [address] [place] CO2 [Moles/Vol] 17 mmol/L Low 22-30 [facility] Comment on above: Order Comment: Speci men Type: BLOOD SPECIMENOrdering Facility: [facility] Address: [address] [place] [address] Performed By: #### 2 777-1, 41833-6 ####[facility]ATORYCLIA [id number] [place] [id number] [place] Creatinine [Mass/Vol] 1.90 mg/dL High 0.73-1.22 [facility] Comment on above: Order Comment: Speci men Type: BLOOD SPECIMENOrdering Facility: [facility] Address: [address] [place] [address] Performed By: #### 2 777-1, 44534-8 ####[facility]ATORYCLIA [id number] [address] Creatinine and Glomerular filtration rate.predicted panel (S/P/Bld) 39 mL/min/1.73m??? Low >=60 [facility] Comment on above: Order Comment: Speci men Type: BLOOD SPECIMENOrdering Facility: [facility] Address: [address] [place] [address] Result Comment: Leena mated Glomerular Filtration Rate [...] actual GFR. Performed By: #### 2 777-1, 26146-1 ####[facility]ATORYCLIA [id number] [place] [id number] [place] Glucose [Mass/Vol] 225 mg/dL High 74-99 [facility] Comment on above: Order Comment: Speci men Type: BLOOD SPECIMENOrdering Facility: [facility] Address: [address] [place] [address] Result Comment: The [place] Diabetes Association (ADA) provides guidance for cutoff [...] Medical Care in Diabetes 2016, [place] Diabetes Association. Diabetes Care. 2016.39(Suppl 1). Performed By: #### 2 777-1, 11024-0 ####[facility]ATORYCLIA [id number] [place] [address] [place] Potassium [Moles/Vol] 4.7 mmol/L Normal 3.7-5.1 [facility] Comment on above: Order Comment: Speci men Type: BLOOD SPECIMENOrdering Facility: [facility] Address: [address] [place] [address] Performed By: #### 2 777-, 49128-1 ####[facility]ATORYCLIA [id number] [place] [address] [place] Protein [Mass/Vol] 6.0 g/dL Low 6.3-8.0 [facility] Comment on above: Order Comment: Speci men Type: BLOOD SPECIMENOrdering Facility: [facility] Address: [address] [place] [address] Performed By: #### 2 777-, 83046-5 ####[facility]ATORYCLIA [id number] [place] [address] [place] Sodium [Moles/Vol] 132 mmol/L Low 136-144 [facility] Comment on above: Order Comment: Speci men Type: BLOOD SPECIMENOrdering Facility: [facility] Address: [address] [place] [address] Performed By: #### 2 777-1, 01105-2 ####[facility]ORATORYCLIA [id number] [place] [address] [place] Urea nitrogen [Mass/Vol] 34 mg/dL High 9-24 [facility] Comment on above: Order Comment: Speci men Type: BLOOD SPECIMENOrdering Facility: [facility] Address: [facility] [place] [address] Performed By: #### 2 777-1, 52003-5 ####[facility]ORATORYCLIA [id number] [place] [address] [place] ECG COMPLETEon 02-17-2025 ECG COMPLETE Ventricular Rate : 152 BPM QRS Duration : 100 ms Q-T Interval : 300 ms QTC Calculation(Bazett) : 477 ms Calculated R Liberty : 16 degrees Calculated T Liberty : 7 degrees ATRIAL FIBRILLATION WITH RAPID VENTRICULAR RESPONSE NONSPECIFIC T WAVE ABNORMALITY ABNORMAL ECG WHEN COMPARED WITH ECG OF 16-Feb-2025 19:16, ATRIAL FIBRILLATION HAS REPLACED SINUS RHYTHM NONSPECIFIC T WAVE ABNORMALITY NOW EVIDENT IN INFERIOR LEADS Confirmed by MANISHA ANDERSEN MD ([id number]) on 02/17/2025 9:11:43 AM NAME : ANMOL REYNOLDS PID : [id number] : 1960 Gender : Male Race : ORD : [id number] Procedure Date : Feb 17 2025 07:55:31 Edit Date : Feb 17 2025 09:11:44 Diagnosis: ATRIAL FIBRILLATION WITH RAPID VENTRICULAR RESPONSE NONSPECIFIC T WAVE ABNORMALITY ABNORMAL ECG WHEN COMPARED WITH ECG OF 16-Feb-2025 19:16, ATRIAL FIBRILLATION HAS REPLACED SINUS RHYTHM NONSPECIFIC T WAVE ABNORMALITY NOW EVIDENT IN INFERIOR LEADS Confirmed by MANISHA ANDERSEN MD ([id number]) on 02/17/2025 9:11:43 AM Test Reason : Arrhythmia Location : 200 : [facility] 48 Overread By : MANISHA ANDERSEN MD Edited By : MANISHA ANDERSEN MD Referred By : , Acquired by : SANDHYA ABURTO [facility] ECHOon 02-17-2025 Echocardiography Echocardiography Report: Transthoracic Echo [facility] Date of service: 02/17/2025 10:58:00 [facility] Ordering physician: JON MCDONALD Indication: Sustained atrial fibrillation Technologist: Marie Magana [facility] Interpreting physician: Naresh Yo MD PATIENT: Name: [...] * * * Final * * * [employer] Image : [id number] amicsSISUID Normal [facility] Gas and Carbon monoxide pane l (BldV)on 02-17-2025 BASE DEFICIT, VENOUS -7 mmol/L Low -2-0 [facility] Comment on above: Order Comment: Speci men Type: VENOUS BLOOD SPECIMENOrdering Facility: [facility] Address: [address] [place] [address] Performed By: #### 2 4344-4 ####[facility]ATORYCLIA [id number] [address] STATES OF [facility] Body temperature 99.86 [degF] Normal [facility] Comment on above: Order Comment: Speci men Type: VENOUS BLOOD SPECIMENOrdering Facility: [facility] Address: [address] [place] [address] Performed By: #### 2 4344-4 ####[facility]ATORYCLIA [id number] [address] STATES OF [facility] Calcium.ionized (BldV) [Mass/Vol] 1.17 mmol/L Normal 1.08-1.30 [facility] Comment on above: Order Comment: Speci men Type: VENOUS BLOOD SPECIMENOrdering Facility: [facility] Address: [address] [place] [address] Performed By: #### 2 4344-4 ####[facility]ATORYCLIA [id number] [address] Calcium.ionized adjusted to pH 7.4 (BldA) [Moles/Vol] 1.12 mmol/L Normal 1.08-1.30 [facility] Comment on above: Order Comment: Speci men Type: VENOUS BLOOD SPECIMENOrdering Facility: [facility] Address: [address] [place] [address] Performed By: #### 2 4344-4 ####[facility]ATORYCLIA [id number] [address] OF [facility] Carboxyhemoglobin (BldV) [Mass fraction] 1.1 % Normal 0.0-2.0 [facility] Comment on above: Order Comment: Speci men Type: VENOUS BLOOD SPECIMENOrdering Facility: [facility] Address: [address] [place] [address] Result Comment: Carb oxyhemoglobin Reference Range for Smokers: 2.0-8.0% Performed By: #### 2 4344-4 ####[facility]ATORYCLIA [id number] [place] [address] [place] Chloride [Moles/Vol] 107 mmol/L High 97-105 [facility] Comment on above: Order Comment: Speci men Type: VENOUS BLOOD SPECIMENOrdering Facility: [facility] Address: [address] [place] [address] Performed By: #### 2 4344-4 ####[facility]ATORYCLIA [id number] [address] [place] CO2 (BldV) [Partial pressure] 38 mm[Hg] Low 42-55 [facility] Comment on above: Order Comment: Speci men Type: VENOUS BLOOD SPECIMENOrdering Facility: [facility] Address: [address] [place] [address] Performed By: #### 2 4344-4 ####[facility]ATORYCLIA [id number] [address] CO2 adjusted to patient's actual temperature (BldV) [Partial pressure] 39 mmHg Low 42-55 [facility] Comment on above: Order Comment: Speci men Type: VENOUS BLOOD SPECIMENOrdering Facility: [facility] Address: [address] [place] [address] Performed By: #### 2 4344-4 ####[facility]ATORYCLIA [id number] [address] [place] Glucose [Mass/Vol] 236 mg/dL High 60-105 [facility] Comment on above: Order Comment: Speci men Type: VENOUS BLOOD SPECIMENOrdering Facility: [facility] Address: [address] [place] [address] Performed By: #### 2 4344-4 ####[facility]ATORYCLIA [id number] [address] [place] HCO3 (Bld) [Moles/Vol] 18 mmol/L Low 24-28 [facility] Comment on above: Order Comment: Speci men Type: VENOUS BLOOD SPECIMENOrdering Facility: [facility] Address: [address] [place] [address] Performed By: #### 2 4344-4 ####[facility]ATORYCLIA [id number] [address] [place] Hematocrit (Bld) [Volume fraction] 37.3 % Low 39.0-51.0 [facility] Comment on above: Order Comment: Speci men Type: VENOUS BLOOD SPECIMENOrdering Facility: [facility] Address: [address] [place] [address] Performed By: #### 2 4344-4 ####[facility]ATORYCLIA [id number] [address] [place] Hemoglobin (Bld) [Mass/Vol] 12.1 g/dL Low 13.0-17.0 [facility] Comment on above: Order Comment: Speci men Type: VENOUS BLOOD SPECIMENOrdering Facility: [facility] Address: [facility] [place] [address] Performed By: #### 2 4344-4 ####[facility]ATORYCLIA [id number] [address] [place] Lactate [Moles/Vol] 2.2 mmol/L Normal 0.5-2.2 [facility] Comment on above: Order Comment: Speci men Type: VENOUS BLOOD SPECIMENOrdering Facility: [facility] Address: [address] [place] [address] Performed By: #### 2 4344-4 ####[facility]ATORYCLIA [id number] [address] [place] Methemoglobin (Bld) [Mass fraction] 0.8 % Normal 0.0-1.5 [facility] Comment on above: Order Comment: Speci men Type: VENOUS BLOOD SPECIMENOrdering Facility: [facility] Address: [address] [place] [address] Performed By: #### 2 4344-4 ####[facility]ATORYCLIA [id number] [address] [place] O2 THERAPY VENT=Ventilator Normal [facility] Comment on above: Order Comment: Speci men Type: VENOUS BLOOD SPECIMENOrdering Facility: [facility] Address: [address] [place] [address] Performed By: #### 2 4344-4 ####[facility]ATORYCLIA [id number] [address] [place] Oxygen (BldV) [Partial pressure] 65 mm[Hg] High 35-45 [facility] Comment on above: Order Comment: Speci men Type: VENOUS BLOOD SPECIMENOrdering Facility: [facility] Address: [address] [place] [address] Performed By: #### 2 4344-4 ####[facility]ATORYCLIA [id number] [address] [place] Oxygen adjusted to patient's actual temperature (BldV) [Partial pressure] 68 mmHg High 35-45 [facility] Comment on above: Order Comment: Speci men Type: VENOUS BLOOD SPECIMENOrdering Facility: [facility] Address: [address] [place] [address] Performed By: #### 2 4344-4 ####[facility]ATORYCLIA [id number] [place] [address] [place] Oxygen saturation in Venous blood 90 % High 60-85 [facility] Comment on above: Order Comment: Speci men Type: VENOUS BLOOD SPECIMENOrdering Facility: [facility] Address: [address] [place] [address] Performed By: #### 2 4344-4 ####[facility]ATORYCLIA [id number] [address] [place] Oxyhemoglobin (BldV) [Mass fraction] 89 % High 60-85 [facility] Comment on above: Order Comment: Speci men Type: VENOUS BLOOD SPECIMENOrdering Facility: [facility] Address: [address] [place] [address] Performed By: #### 2 4344-4 ####[facility]ATORYCLIA [id number] [place] [address] [place] pH (BldV) 7.31 [pH] Low 7.32-7.42 [facility] Comment on above: Order Comment: Speci men Type: VENOUS BLOOD SPECIMENOrdering Facility: [facility] Address: [address] [place] [address] Performed By: #### 2 4344-4 ####[facility]ATORYCLIA [id number] [address] [place] pH adjusted to patient's actual temperature (BldV) 7.30 Low 7.32-7.42 [facility] Comment on above: Order Comment: Speci men Type: VENOUS BLOOD SPECIMENOrdering Facility: [facility] Address: [address] [place] [address] Performed By: #### 2 4344-4 ####[facility]ATORYCLIA [id number] [address] Potassium [Moles/Vol] 4.7 mmol/L Normal 3.5-5.0 [facility] Comment on above: Order Comment: Speci men Type: VENOUS BLOOD SPECIMENOrdering Facility: [facility] Address: [address] [place] [address] Performed By: #### 2 4344-4 ####[facility]ATORYCLIA [id number] [address] Sodium [Moles/Vol] 134 mmol/L Low 136-144 [facility] Comment on above: Order Comment: Speci men Type: VENOUS BLOOD SPECIMENOrdering Facility: [facility] Address: [address] [place] [address] Performed By: #### 2 4344-4 ####[facility]ATORYCLIA [id number] [address] NURSING PROGon 02-17-2025 NURSING PROG HNO ID: [id number] Author: ARLEN BUTLER RN Service: Nursing Author Type: Registered Nurse Type: Nursing Progress Note Filed: 02/17/2025 07:12 Note Text: Dr. Story and Dr. Gama at bedside. Pt in Afib rhythm. Order for 2 grams Magnesium IV Normal [facility] NUTRITIONon 02-17-2025 NUTRITION HNO ID: [id number] Author: DARA MCDUFFIE RD Service: Nutrition Therapy [...] h/o paraplegia and wounds admitted from a [place] after being found unresponsive with concerns for sepsis. Intubated in ICU. Intake History: Nutrition Intake Prior to Admission: Greater than 75% estimated energy needs Dosing Weight: 74 kg (163 lb 2.3 oz) Dosing Weight Type: Thurston body weight (adjusted for paraplegia) Estimated kilocalorie needs: 1850-2220kcals Calorie Calculation Method: 25-30 kcals/kg Estimated protein needs (grams): 111-148gms Grams protein determined by: 1.5 - 2.0 g/kg (wound healing if renal fxn continues to improve) Diet Orders (From admission, onward) Start Ordered 02/17/255 DIET NPO START NOW 02/17/25 0204 Anthropometrics: [...] Airways Drain Duration Indwelling Urinary Catheter 02/16/252125 [facility] Coude 20 Fr <1 day MNT Billing: $ Initial Assessment: 1 unit Time Spent (mins): 8 SIGNATURE: Dara Mcduffie RD PATIENT NAME: Anmol Given DATE: February 17, 2025 TIME: 8:02 AM Normal [facility] PT panel Coag (PPP)on 2024 INR Coag (PPP) [Relative time] 1.2 {INR} Normal 0.9-1.3 [facility] Comment on above: Order Comment: Speci men Type: BLOOD SPECIMENOrdering Facility: [facility] Address: [address] [place] [address] Result Comment: Lorna min K Antagonist (VKA) Therapeutic Range: INR 2 to 3 (Target INR of 2.5) Note: For patients treated with VKA drugs, such as warfarin, the [place] College [employer] Physicians 2012 Guideline recommends [...] Sravan GH, et al. Chest 2012, 141:7S-47S Amrcela RA, et al. [facility] 2017, 70: 252-289 Performed By: #### 1 4979-9, 55100-1 ####[facility]ORATORYCLIA [id number] [place] [address] [place] PT Coag (PPP) [Time] 12.4 s Normal 9.7-13.0 [facility] Comment on above: Order Comment: Speci men Type: BLOOD SPECIMENOrdering Facility: [facility] Address: [address] [place] [address] Performed By: #### 1 4979-9, 50023-0 ####[facility]ORATORYCLIA [id number] [place] [address] [place] Phosphate SerPl-mCncon 02-17 Phosphate [Mass/Vol] 4.4 mg/dL Normal 2.7-4.8 [facility] Comment on above: Order Comment: Speci men Type: BLOOD SPECIMENOrdering Facility: [facility] Address: [address] [place] [address] Performed By: #### 2 777-1, 47447-1 ####[facility]ORATORYCLIA [id number] [place] [address] [place] STAPHYLOCOCCUS AUREUS AND MR SA SCREEN, PCR, NASALon 02-17-2025 S. aureus and MRSA panel JOSSY+probe (Nose) Methicillin-SUSCEPTIB LE Staphylococcus aureus Detected Abnormal Not Detected [facility] Comment on above: Order Comment: Speci men Type: SWABOrdering Facility: [facility] Address: [address] [place] [address] Performed By: #### S APCR ####[facility]ORATORYCLIA [id number] [address] [place] THERAPY NTon 02-17-2025 THERAPY NT HNO ID: [id number] Author: SANDHYA ABURTO, RESEARCH PSYCHOLOGIST Service: Respiratory Therapy Author Type: Registered Resp [...] TIME: 8:03 AM PAGER/CONTACT #: [email or web address] Normal [facility] Vancomycin random [Mass/Vol] on 02-17-2025 Vancomycin [Mass/Vol] 6.1 ug/mL Low 10.0-20.0 [facility] Comment on above: Order Comment: Speci men Type: BLOOD SPECIMENOrdering Facility: [facility] Address: [address] [place] [address] Result Comment: Refe rence ranges and high/low indicator flags are provided as general guidelines only. The treating physician must determine appropriate target levels/dosing based on the specific clinical situation. Performed By: #### 4 091-5 ####[facility]ORATORYCLIA [id number] [address] OF [facility] XR ABDOMEN 1V SUPINEon 02-17 XR [...] The side port overlies the GE junction. Pleat Patternmaker: PSCB Transcribe Date/Time: Feb 17 2025 11:05A Dictated by : VIPIN JASSO MD This examination was interpreted and the report reviewed and electronically signed by: VIPIN JASSO MD on Feb 17 2025 11:06AM EST [id number] N Normal [facility] aPTT PPPon 02-17-2025 aPTT Coag (PPP) [Time] 38.7 s High 23.0-32.4 [facility] Comment on above: Order Comment: Speci men Type: BLOOD SPECIMENOrdering Facility: [facility] Address: [address] [place] [address] Performed By: #### 1 4979-9 ####[facility]ORYCLIA [id number] [address] aPTT Coag (PPP) [Time] EXTREMELY ABNORMA L RESULT. No clot detected at 320 seconds. Refer to anticoagulation nomogram for further actions. Critically abnormal (none) [facility] Comment on above: Order Comment: Speci men Type: BLOOD SPECIMENOrdering Facility: [facility] Address: [address] [place] [address] Performed By: #### 1 4979-9 ####[facility]ATORYCLIA [id number] [address] OF [facility] aPTT Coag (PPP) [Time] 36.7 s High 23.0-32.4 [facility] Comment on above: Order Comment: Speci men Type: BLOOD SPECIMENOrdering Facility: [facility] Address: [facility] [place] [address] Performed By: #### 1 4979-9, 75727-2 ####[facility]ATORYCLIA [id number] [place] [address] [place] ALLIED HEALTHon 02-16-2025 ALLIED HEALTH HNO ID: [id number] Author: DILCIA BASILIO RT(R) Service: ? Author [...] PATIENT PRESENTS WITH AN IMPLANTABLE OR ATTACHED HOME AND SCHOOL VISITOR: No ALLERGIES: Reviewed and unchanged CONTRAST ALLERGY: [...] February 16, 2025 TIME: 8:26 PM Normal [facility] Bacteria Bld Culton 02-17-20 25 Bacteria identified [...] , Intermediate >=.5 , Resistant >=1 Abnormal [facility] Comment on above: Performed By: #### 6 00-7 ####[facility]ORYCLIA [id number] [place] [address] [place] Bacteria identified Cx [...] , Resistant >=1 ORGANISM ID: [id number] (PROVIDENCIA STLAINERTII) ------ ANTIBIOTIC INTERPRETATION HARINDER STATUS REFERENCE RANGE [...] , Intermediate >=.5 , Resistant >=1 Abnormal [facility] Comment on above: Performed By: #### 6 00-7 #### [facility] [id number] [address] [place] [id number] [place] Bacteria Ur Culton [...] , Intermediate >32 , Resistant >64 Abnormal [facility] Comment on above: Performed By: #### 2 4356-8, 630-4 ####[facility]ORYCLIA [id number] [place] [address] [place] CBC W Auto Differential pane l (Bld)on 02-16-2025 Basophils (Bld) [#/Vol] 0.00 10*3/uL Normal <0.11 [facility] Comment on above: Order Comment: Speci men Type: BLOOD SPECIMENOrdering Facility: [facility] Address: [address] [place] [address] Performed By: #### 5 7021-8 ####[facility]ATORYCLIA [id number] [address] [place] Basophils/100 WBC (Bld) 0.0 % Normal A [facility] Comment on above: Order Comment: Speci men Type: BLOOD SPECIMENOrdering Facility: [facility] Address: [address] [place] [address] Performed By: #### 5 7021-8 ####[facility]ATORYCLIA [id number] [address] Differential cell count method Nom (Bld) Manual Normal [facility] Comment on above: Order Comment: Speci men Type: BLOOD SPECIMENOrdering Facility: [facility] Address: [address] [place] [address] Performed By: #### 5 7021-8 ####[facility]ORYCLIA [id number] [address] [place] Eosinophils (Bld) [#/Vol] 0.00 10*3/uL Normal <0.46 [facility] Comment on above: Order Comment: Speci men Type: BLOOD SPECIMENOrdering Facility: [facility] Address: [address] [place] [address] Performed By: #### 5 7021-8 ####[facility]ORYCLIA [id number] [address] [place] Eosinophils/100 WBC (Bld) 0.0 % Normal [facility] Comment on above: Order Comment: Speci men Type: BLOOD SPECIMENOrdering Facility: [facility] Address: [address] [place] [address] Performed By: #### 5 7021-8 ####[facility]ORYCLIA [id number] [address] [place] Erythrocyte distribution width (RBC) [Ratio] 14.5 % Normal 11.5-15.0 [facility] Comment on above: Order Comment: Speci men Type: BLOOD SPECIMENOrdering Facility: [facility] Address: [address] [place] [address] Performed By: #### 5 7021-8 ####[facility]ORYCLIA [id number] [address] [place] Hematocrit (Bld) [Volume fraction] 34.9 % Low 39.0-51.0 [facility] Comment on above: Order Comment: Speci men Type: BLOOD SPECIMENOrdering Facility: [facility] Address: [address] [place] [address] Performed By: #### 5 7021-8 ####[facility]ORYCLIA [id number] [address] [place] Hemoglobin (Bld) [Mass/Vol] 11.6 g/dL Low 13.0-17.0 [facility] Comment on above: Order Comment: Speci men Type: BLOOD SPECIMENOrdering Facility: [facility] Address: [address] [place] [address] Performed By: #### 5 7021-8 ####[facility]ORYCLIA [id number] [place] [address] [place] Lymphocytes (Bld) [#/Vol] 0.31 10*3/uL Low 1.00-4.00 [facility] Comment on above: Order Comment: Speci men Type: BLOOD SPECIMENOrdering Facility: [facility] Address: [address] [place] [address] Performed By: #### 5 7021-8 ####[facility]ORYCLIA [id number] [address] Lymphocytes/100 WBC (Bld) 3.0 % Normal [facility] Comment on above: Order Comment: Speci men Type: BLOOD SPECIMENOrdering Facility: [facility] Address: [address] [place] [address] Performed By: #### 5 7021-8 ####[facility]ORYCLIA [id number] [address] STATES OF [facility] MCH (RBC) [Entitic mass] 30.1 pg Normal 26.0-34.0 [facility] Comment on above: Order Comment: Speci men Type: BLOOD SPECIMENOrdering Facility: [facility] Address: [address] [place] [address] Performed By: #### 5 7021-8 ####[facility]ORYCLIA [id number] [address] STATES OF [facility] MCHC (RBC) [Mass/Vol] 33.2 g/dL Normal 30.5-36.0 [facility] Comment on above: Order Comment: Speci men Type: BLOOD SPECIMENOrdering Facility: [facility] Address: [address] [place] [address] Performed By: #### 5 7021-8 ####[facility]ORYCLIA [id number] [address] [place] MCV (RBC) [Entitic vol] 90.6 fL Normal 80.0-100.0 [facility] Comment on above: Order Comment: Speci men Type: BLOOD SPECIMENOrdering Facility: [facility] Address: [address] [place] [address] Performed By: #### 5 7021-8 ####[facility]ORYCLIA [id number] [address] Metamyelocytes/100 WBC (Bld) 3.0 % Normal [facility] Comment on above: Order Comment: Speci men Type: BLOOD SPECIMENOrdering Facility: [facility] Address: [address] [place] [address] Performed By: #### 5 7021-8 ####[facility]ORYCLIA [id number] [address] [place] Monocytes (Bld) [#/Vol] 0.41 10*3/uL Normal <0.87 [facility] Comment on above: Order Comment: Speci men Type: BLOOD SPECIMENOrdering Facility: [facility] Address: [address] [place] [address] Performed By: #### 5 7021-8 ####[facility]ORYCLIA [id number] [address] Monocytes/100 WBC (Bld) 4.0 % Normal A [facility] Comment on above: Order Comment: Speci men Type: BLOOD SPECIMENOrdering Facility: [facility] Address: [address] [place] [address] Performed By: #### 5 7021-8 ####[facility]ORYCLIA [id number] [address] [place] Neutrophils (Bld) [#/Vol] 9.26 10*3/uL High 1.45-7.50 [facility] Comment on above: Order Comment: Speci men Type: BLOOD SPECIMENOrdering Facility: [facility] Address: [address] [place] [address] Performed By: #### 5 7021-8 ####[facility]ORYCLIA [id number] [address] [place] Neutrophils/100 WBC (Bld) 90.0 % Normal [facility] Comment on above: Order Comment: Speci men Type: BLOOD SPECIMENOrdering Facility: [facility] Address: [address] [place] [address] Performed By: #### 5 7021-8 ####[facility]ORYCLIA [id number] [place] [address] [place] Nucleated RBC (Bld) [#/Vol] 10*3/uL Normal <0.01 [facility] Comment on above: Order Comment: Speci men Type: BLOOD SPECIMENOrdering Facility: [facility] Address: [address] [place] [address] Performed By: #### 5 7021-8 ####[facility]ORYCLIA [id number] [address] OF [facility] Nucleated RBC/100 WBC (Bld) [Ratio] 0.0 /100 WBC Normal [facility] Comment on above: Order Comment: Speci men Type: BLOOD SPECIMENOrdering Facility: [facility] Address: [address] [place] [address] Performed By: #### 5 7021-8 ####[facility]ORYCLIA [id number] [address] OF [facility] Platelet mean volume (Bld) [Entitic vol] 10.6 fL Normal 9.0-12.7 [facility] Comment on above: Order Comment: Speci men Type: BLOOD SPECIMENOrdering Facility: [facility] Address: [address] [place] [address] Performed By: #### 5 7021-8 ####[facility]ORYCLIA [id number] [address] OF [place] Platelets (Bld) [#/Vol] 108 10*3/uL Low 150-400 [facility] Comment on above: Order Comment: Speci men Type: BLOOD SPECIMENOrdering Facility: [facility] Address: [address] [place] [address] Result Comment: No c lot detected. Performed By: #### 5 7021-8 ####[facility]ORYCLIA [id number] [address] Platelets Estimate (Bld) [#/Vol] Decreased Normal [facility] Comment on above: Order Comment: Speci men Type: BLOOD SPECIMENOrdering Facility: [facility] Address: [address] [place] [address] Performed By: #### 5 7021-8 ####[facility]ORYCLIA [id number] [address] RBC (Bld) [#/Vol] 3.85 10*6/uL Low 4.20-6.00 [facility] Comment on above: Order Comment: Speci men Type: BLOOD SPECIMENOrdering Facility: [facility] Address: [address] [place] [address] Performed By: #### 5 7021-8 ####[facility]ORYCLIA [id number] [address] RED CELL MORPH Reviewed: unremarkable Normal [facility] Comment on above: Order Comment: Speci men Type: BLOOD SPECIMENOrdering Facility: [facility] Address: [address] [place] [address] Performed By: #### 5 7021-8 ####[facility]ORYCLIA [id number] [address] STATES OF [facility] WBC (Bld) [#/Vol] 10.29 10*3/uL Normal 3.70-11.00 [facility] Comment on above: Order Comment: Speci men Type: BLOOD SPECIMENOrdering Facility: [facility] Address: [address] [place] [address] Performed By: #### 5 7021-8 ####[facility]ORYCLIA [id number] [address] ABD/PEL W IVCONon 05-15-[address] ABD/PEL W IVCON * * *Final Report* * * DATE OF EXAM: Feb 16 2025 8:33PM [facility] 0530 - CT ABD/PEL W IVCON [...] 8. Details above. 9. Follow-up as indicated. Pleat Patternmaker: CECILIA Transcribe Date/Time: Feb 16 2025 10:02P Dictated by : CORBIN PERRY MD This examination was interpreted and the report reviewed and electronically signed by: CORBIN PERRY MD on Feb 16 2025 10:34PM EST 16 (more content not included)... Normal [facility] CT BRAIN WO IVCONon 02-17-[address] BRAIN WO IVCON * * *Final Report* * * DATE OF EXAM: Feb 16 2025 8:33PM [facility] 0504 - CT BRAIN WO IVCON [...] involving the major extra or intracranial arteries. Pleat Patternmaker: PSCB Transcribe Date/Time: Feb 16 2025 9:23P Dictated by : BYRON SRINIVASAN MD This examination was interpreted and the report reviewed and electronically signed by: BYRON SRINIVASAN MD on Feb 16 2025 9:34PM EST [id number] Normal [facility] CT CHEST W IVCONon CT CHEST W IVCON * * *Final Report* * * DATE OF EXAM: Feb 16 2025 8:33PM [facility] 0539 - CT CHEST W IVCON [...] the gastroesophageal junction and should be advanced. Pleat Patternmaker: CECILIA Transcribe Date/Time: Feb 16 2025 9:56P Dictated by : ELLIOT ANGELA, DO This examination was interpreted and the report reviewed and electronically signed by: ELLIOT ANGELA DO on Feb 16 2025 10:13PM EST [id number] Normal [facility] CTA HEAD W IVCONon CTA HEAD W IVCON * * *Final Report* * * DATE OF EXAM: Feb 16 2025 8:33PM [facility] 0022 - CTA HEAD W IVCON [...] involving the major extra or intracranial arteries. Pleat Patternmaker: CECILIA Transcribe Date/Time: Feb 16 2025 9:23P Dictated by : BYRON SRINIVASAN MD This examination was interpreted and the report reviewed and electronically signed by: BYRON SRINIVASAN MD on Feb 16 2025 9:34PM EST [id number] Normal [facility] CTA NECK W IVCONon CTA NECK W IVCON * * *Final Report* * * DATE OF EXAM: Feb 16 2025 8:33PM [facility] 0024 - CTA NECK W IVCON [...] involving the major extra or intracranial arteries. Pleat Patternmaker: CECILIA Transcribe Date/Time: Feb 16 2025 9:23P Dictated by : BYRON SRINIVASAN MD This examination was interpreted and the report reviewed and electronically signed by: BYRON SRINIVASAN MD on Feb 16 2025 9:34PM EST [id number] Normal [facility] Comprehensive metabolic 2000 panelon 02-16-2025 Albumin [Mass/Vol] 2.3 g/dL Low 3.9-4.9 [facility] Comment on above: Order Comment: Speci men Type: BLOOD SPECIMENOrdering Facility: [facility] Address: [address] [place] [address] Performed By: #### 2 43238 ####[facility]ATORYCLIA [id number] [address] [place] ALP [Catalytic activity/Vol] 286 U/L High 38-113 [facility] Comment on above: Order Comment: Speci men Type: BLOOD SPECIMENOrdering Facility: [facility] Address: [address] [place] [address] Performed By: #### 2 4323-8, ####[facility]ATORYCLIA [id number] [place] [address] [place] ALT With P-5'-P [Catalytic activity/Vol] 17 U/L Normal 10-54 [facility] Comment on above: Order Comment: Speci men Type: BLOOD SPECIMENOrdering Facility: [facility] Address: [facility] [place] [address] Performed By: #### 2 432-8, ####[facility] LABORATORYCLIA [id number] [place] [address] [place] Anion gap [Moles/Vol] 14 mmol/L Normal 8-15 [facility] Comment on above: Order Comment: Speci men Type: BLOOD SPECIMENOrdering Facility: [facility] Address: [address] [place] [address] Performed By: #### 2 4322-8, ####[facility] LABORATORYCLIA [id number] [place] [address] [place] AST With P-5'-P [Catalytic activity/Vol] 31 U/L Normal 14-40 [facility] Comment on above: Order Comment: Speci men Type: BLOOD SPECIMENOrdering Facility: [facility] Address: [address] [place], [place] [address] Performed By: #### 2 432-8, ####[facility]EN[facility] LABORATORYCLIA [id number] [place] [address] [place] Bilirubin [Mass/Vol] 0.9 mg/dL Normal 0.2-1.3 [facility] Comment on above: Order Comment: Speci men Type: BLOOD SPECIMENOrdering Facility: [facility] Address: [address] [place] [address] Performed By: #### 2 4323-8, ####[facility]ORYCLIA [id number] [address] [place] Calcium [Mass/Vol] 7.7 mg/dL Low 8.5-10.2 [facility] Comment on above: Order Comment: Speci men Type: BLOOD SPECIMENOrdering Facility: [facility] Address: [address] [place] [address] Performed By: #### 2 4323-8, ####[facility]ATORYCLIA [id number] [place], [place] [address] [place] [address] [place] Chloride [Moles/Vol] 105 mmol/L Normal 98-107 [facility] Comment on above: Order Comment: Speci men Type: BLOOD SPECIMENOrdering Facility: [facility] Address: [address] [place] [address] Performed By: #### 2 4323-8, ####[facility]ORYCLIA [id number] [place] [id number] [place] CO2 [Moles/Vol] 17 mmol/L Low 22-30 [facility] Comment on above: Order Comment: Speci men Type: BLOOD SPECIMENOrdering Facility: [facility] Address: [address] [place] [address] Performed By: #### 2 4323-8, ####[facility]ATORYCLIA [id number] [address] Creatinine [Mass/Vol] 2.35 mg/dL High 0.73-1.22 [facility] Comment on above: Order Comment: Speci men Type: BLOOD SPECIMENOrdering Facility: [facility] Address: [address] [place] [address] Performed By: #### 2 4323-8, ####[facility]ORYCLIA [id number] [address] Creatinine and Glomerular filtration rate.predicted panel (S/P/Bld) 30 mL/min/1.73m??? Low >=60 [facility] Comment on above: Order Comment: Speci men Type: BLOOD SPECIMENOrdering Facility: [facility] Address: [address] [place] [address] Result Comment: Leena mated Glomerular Filtration Rate [...] actual GFR. Performed By: #### 2 4323-8, ####[facility] [id number] [place] [address] [place] Glucose [Mass/Vol] 131 mg/dL High 74-99 [facility] Comment on above: Order Comment: Jg valdez Type: BLOOD SPECIMENOrdering Facility: [facility] Address: [address] [place] [address] Result Comment: The [place] Diabetes Association (ADA) provides guidance for cutoff [...] Medical Care in Diabetes 2016, [place] Diabetes Association. Diabetes Care. 2016.39(Suppl 1). Performed By: #### 2 4323-8, ####[facility] [id number] [place] [address] [place] Potassium [Moles/Vol] 4.4 mmol/L Normal 3.7-5.1 [facility] Comment on above: Order Comment: Jg valdez Type: BLOOD SPECIMENOrdering Facility: [facility] Address: [address] [place] [address] Performed By: #### 2 4323-8, ####[facility]ATORYCLIA [id number] [place] [address] [place] Protein [Mass/Vol] 5.9 g/dL Low 6.3-8.0 [facility] Comment on above: Order Comment: Jg valdez Type: BLOOD SPECIMENOrdering Facility: [facility] Address: [address] [place], [place] [address] Performed By: #### 2 4323-8, 90191-8 ####[facility]ATORYCLIA [id number] [place] [address] [place] Sodium [Moles/Vol] 136 mmol/L Normal 136-144 [facility] Comment on above: Order Comment: Speci men Type: BLOOD SPECIMENOrdering Facility: [facility] Address: [address] [place] [address] [place] [address] Performed By: #### 2 4323-8, 33225-2 ####[facility]ATORYCLIA [id number] [place] [address] [place] Urea nitrogen [Mass/Vol] 33 mg/dL High 9-24 [facility] Comment on above: Order Comment: Speci men Type: BLOOD SPECIMENOrdering Facility: [facility] Address: [address] [place] [address] Performed By: #### 2 4323-8, 61197-6 ####[facility]ATORYCLIA [id number] [place] [address] [place] ECG COMPLETEon 02-16-2025 ECG COMPLETE Ventricular Rate : 120 BPM Atrial Rate : 120 BPM P-R Interval : 152 ms QRS Duration : 88 ms Q-T Interval : 306 ms QTC Calculation(Bazett) : 432 ms Calculated P Liberty : 35 degrees Calculated R Liberty : 6 degrees Calculated T Liberty : 45 degrees SINUS TACHYCARDIA POSSIBLE INFERIOR INFARCT , AGE UNDETERMINED CANNOT RULE OUT ANTERIOR INFARCT , AGE UNDETERMINED ABNORMAL ECG NO PREVIOUS ECGS AVAILABLE Confirmed by MAYKEL MANJARREZ MD ([id number]) on 02/20/2025 2:34:23 PM NAME : ANMOL REYNOLDS PID : [id number] : 1960 Gender : Male Race : ORD : [id number] Procedure Date : Feb 16 2025 19:16:55 Edit Date : Feb 20 2025 14:34:24 Diagnosis: SINUS TACHYCARDIA POSSIBLE INFERIOR INFARCT , AGE UNDETERMINED CANNOT RULE OUT ANTERIOR INFARCT , AGE UNDETERMINED ABNORMAL ECG NO PREVIOUS ECGS AVAILABLE Confirmed by MAYKEL MANJARREZ MD ([id number]) on 02/20/2025 2:34:23 PM Test Reason : Chest Pain Location : 4 : AKED EM Overread By : MAYKEL MANJARREZ MD Edited By : MAYKEL MANJARREZ MD Referred By : , Acquired by : LELAND AUGUST [facility] ED NOTEon 02-16-2025 ED NOTE HNO ID: [id number] Author: ROZ MIKE RN Service: ? Author Type: Registered Nurse Type: ED Notes Filed: 02/16/2025 23:23 Note Text: Icu resident at bedside talked with this RN about NG tube, this RN told to leave it in place for this time until further notice as it is not needed for anything significant at this time. [facility] ED NOTE HNO ID: [id number] Author: ROZ MIKE RN Service: ? Author Type: Registered Nurse Type: ED Notes Filed: 02/16/2025 21:56 Note Text: NG in right nare advanced as much as possible, per KUB, the NG is still not in stomach. MICU resident to assess when at bedside. [facility] ED NOTE HNO ID: [id number] Author: ROZ MIKE RN Service: ? Author Type: Registered Nurse Type: ED Notes Filed: 02/16/2025 22:06 Note Text: Mepilex applied to coccyx to prevent further skin berakdown. [facility] ED NOTE HNO ID: [id number] Author: ROZ MIKE RN Service: ? Author Type: Registered Nurse Type: ED Notes Filed: 02/16/2025 19:46 Note Text: Xray called at this time to confirm placement. [facility] ED NOTE HNO ID: [id number] Author: ROZ MIKE RN Service: ? Author Type: Registered Nurse Type: ED Notes Filed: 02/16/2025 19:44 Note Text: 100 mcg of fentanyl being administered at this time by LIBRADO Escamilla [facility] ED NOTE HNO ID: [id number] Author: ROZ MIKE RN Service: ? Author Type: Registered Nurse Type: ED Notes Filed: 02/16/2025 19:44 Note Text: Oxygen improved to 97%. [facility] ED NOTE HNO ID: [id number] Author: ROZ MIKE RN Service: ? Author Type: Registered Nurse Type: ED Notes Filed: 02/16/2025 19:44 Note Text: 7.5 tube placed at this time, bilateral breath sounds auscultated, ETCO2 31. 24 at the teeth. Pt oxygen 71% and HR 132. [facility] ED NOTE HNO ID: [id number] Author: ROZ MIKE RN Service: ? Author Type: Registered Nurse Type: ED Notes Filed: 02/16/2025 19:40 Note Text: 100 of rocuronium given at this time. [facility] ED NOTE HNO ID: [id number] Author: ROZ MIKE RN Service: ? Author Type: Registered Nurse Type: ED Notes Filed: 02/16/2025 19:39 Note Text: 30 of etomidate given at this time. [facility] ED NOTE HNO ID: [id number] Author: ROZ MIKE RN Service: ? Author Type: Registered Nurse Type: ED Notes Filed: 02/16/2025 19:38 Note Text: Levo tubing was clamped, levo decreased to 7 again at this time. [facility] ED NOTE HNO ID: [id number] Author: ROZ MIKE RN Service: ? Author Type: Registered Nurse Type: ED Notes Filed: 02/16/2025 19:36 Note Text: Preparing to intubate patient, using 30 of etomidate for intubation. [facility] ED NOTE HNO ID: [id number] Author: ROZ MIKE RN Service: ? Author Type: Registered Nurse Type: ED Notes Filed: 02/16/2025 19:36 Note Text: Levo increased to 10 at this time [facility] ED NOTE HNO ID: [id number] Author: ROZ MIKE RN Service: ? Author Type: Registered Nurse Type: ED Notes Filed: 02/16/2025 19:32 Note Text: Levophed started at 7 at this time. [facility] ED NOTE HNO ID: [id number] Author: ROZ MIKE RN Service: ? Author Type: Registered Nurse Type: ED Notes Filed: 02/16/2025 19:32 Note Text: Patient opening eyes at this time, but not following commands at this time. [facility] ED NOTE HNO ID: [id number] Author: ROZ MIKE RN Service: ? Author Type: Registered Nurse Type: ED Notes Filed: 02/16/2025 19:22 Note Text: Line placed in RAC was placed in artery, line removed. Pressure applied, no medications were administered through this access point. [facility] ED NOTE HNO ID: [id number] Author: ROZ MIKE RN Service: ? Author Type: Registered Nurse Type: ED Notes Filed: 02/16/2025 19:16 Note Text: Patient BECKIE from the [facility] [place] unresponsive. NO responsive to verbal stimuli, only to painful. Pt LKW was 1700, found unresponsive. [facility] ED NOTE HNO ID: [id number] Author: ROZ MIKE RN Service: ? Author Type: Registered Nurse Type: ED Notes Filed: 02/16/2025 19:15 Note Text: [facility] ED NOTE HNO ID: [id number] Author: ROZ MIKE RN Service: ? Author Type: Registered Nurse Type: ED Notes Filed: 02/16/2025 19:25 Note Text: 2L up at this time. 1 L LR and 1L NS. [facility] ED NOTE HNO ID: [id number] Author: ROZ MIKE RN Service: ? Author Type: Registered Nurse Type: ED Notes Filed: 02/16/2025 19:36 Note Text: Patient placed on zoll pads at this time [facility] ED PROV NOTEon 02-16-2025 ED PROV NOTE HNO ID: [id number] Author: KATHRIN MEHTA MD Service: Emergency Medicine [...] 16, 20251952 Patient here via EMS from [facility] for evaluation of hypotension and altered mental [...] History Patient presents with: Unresponsive: Pt from [facility] for being found unresponsive. Pt normally AANDOx4, but had a spinal cord injury resulting in need for nursing facility. Pt LKW was 1700 today. Arrives only arousable to pain, unable to follow commands. Arrives pale, on NRB, hypotensive, and tachycardic. Patient is a 64-year-old male who presents from [facility] for being unresponsive. Patient is [...] PAST SURGICAL (more content not included)... Normal [facility] HISTORY PHYSICALon HISTORY PHYSICAL HNO ID: [id number] Author: HOWARD GAMA MD Service: Critical Care Author Type: Physician Type: H&P Filed: 02/17/2025 02:44 Note Text: [facility] STAFF PHYSICIAN NOTE OF PERSONAL INVOLVEMENT [...] with extensive medical hx who presented from [facility] for AMS. In the ED, was obtunded [...] [facility] DATE of SERVICE: 02/16/2025 [facility] HISTORY PHYSICAL HNO ID: [id number] Author: HOWARD GAMA MD Service: Critical Care [...] intubation. The patient initially presented to [facility] ED on February 16, 2025 after being found unresponsive at his [facility] facility, last known well 1700 today. ED [...] Lactate (POCT) 2.4 ! UA: 02/16/2025 Color [place] ! Clarity Dense Turbid ! Glucose, Urine Negative Bilirubin, Urine Negative Ketones, Urine Negative Specific [place], Ur 1.037 (H) Hemoglobin/Blood,Ur 3+ ! pH, [...] Neuropathy N (more content not included)... Normal [facility] Magnesium SerPl-mCncon 02-16 Magnesium [Mass/Vol] 1.6 mg/dL Low 1.7-2.3 [facility] Comment on above: Order Comment: Speci men Type: BLOOD SPECIMENOrdering Facility: [facility] Address: [address] [place] [address] Performed By: #### 2 4323-8, 73942-2 ####[facility]ORATORYCLIA [id number] [place] [address] [place] Urinalysis complete panel (U )on 02-16-2025 Bacteria LM.HPF (Urine sed) [#/Area] Many Abnormal None Seen [facility] Comment on above: Order Comment: Speci men Type: URINE SPECIMENOrdering Facility: [facility] Address: [facility] [place] [address] Performed By: #### 2 4356-8, 630-4 ####[facility]ORATORYCLIA [id number] [address] Bilirubin Ql (U) Negative Normal Negative [facility] Comment on above: Order Comment: Speci men Type: URINE SPECIMENOrdering Facility: [facility] Address: [address] [place] [address] Performed By: #### 2 4356-8, 630-4 ####[facility]ORATORYCLIA [id number] [address] OF [place] Clarity (Unsp spec) Dense Turbid Abnormal Clear [facility] Comment on above: Order Comment: Speci men Type: URINE SPECIMENOrdering Facility: [facility] Address: [address] [place] [address] Performed By: #### 2 4356-8, 630-4 ####[facility]ORATORYCLIA [id number] [address] Color (U) [place] Abnormal yellow [facility] Comment on above: Order Comment: Speci men Type: URINE SPECIMENOrdering Facility: [facility] Address: [address] [place] [address] Performed By: #### 2 4356-8, 630-4 ####[facility]ATORYCLIA [id number] [address] Epithelial cells LM.HPF (Urine sed) [#/Area] Moderate Abnormal None Seen [facility] Comment on above: Order Comment: Speci men Type: URINE SPECIMENOrdering Facility: [facility] Address: [address] [place] [address] Performed By: #### 2 4356-8, 630-4 ####[facility]ORATORYCLIA [id number] [address] Glucose Test strip (U) [Mass/Vol] Negative Normal Trace, Negative [facility] Comment on above: Order Comment: Speci men Type: URINE SPECIMENOrdering Facility: [facility] Address: [address] [place] [address] Performed By: #### 2 4356-8, 630-4 ####[facility]ORATORYCLIA [id number] [address] Hemoglobin Ql (U) 3+ Abnormal Negative, Trace [facility] Comment on above: Order Comment: Speci men Type: URINE SPECIMENOrdering Facility: [facility] Address: [address] [place] [address] Performed By: #### 2 4356-8, 630-4 ####[facility]ATORYCLIA [id number] [address] Ketones Ql (U) Negative Normal Negative, Trace [facility] Comment on above: Order Comment: Speci men Type: URINE SPECIMENOrdering Facility: [facility] Address: [address] [place] [address] Performed By: #### 2 4356-8, 630-4 ####[facility]ATORYCLIA [id number] [address] Leukocyte esterase Test strip Ql (U) 500 Da/uL Abnormal Negative, 25 Da/uL [facility] Comment on above: Order Comment: Speci men Type: URINE SPECIMENOrdering Facility: [facility] Address: [address] [place] [address] Performed By: #### 2 4356-8, 630-4 ####[facility]ORATORYCLIA [id number] [address] [place] [facility] Nitrite Ql (U) Negative Normal Negative [facility] Comment on above: Order Comment: Speci men Type: URINE SPECIMENOrdering Facility: [facility] Address: [address] [place] [address] Performed By: #### 2 4356-8, 630-4 ####[facility]ORATORYCLIA [id number] [place] [address] [place] pH (U) 6.5 [pH] Normal 5.0-8.0 [facility] Comment on above: Order Comment: Speci men Type: URINE SPECIMENOrdering Facility: [facility] Address: [address] [place] [address] Performed By: #### 2 4356-8, 630-4 ####[facility]ORATORYCLIA [id number] [place] [id number] [place] Protein (U) [Mass/Vol] 2+ Abnormal Trace , Negative [facility] Comment on above: Order Comment: Speci men Type: URINE SPECIMENOrdering Facility: [facility] Address: [address] [place] [address] Performed By: #### 2 4356-8, 018-4 ####[facility]CLIA [id number] [address] [place] [facility] RBC LM.HPF (Urine sed) [#/Area] /[HPF] Abnormal 0-3 /HPF [facility] Comment on above: Order Comment: Speci men Type: URINE SPECIMENOrdering Facility: [facility] Address: [address] [place] [address] Performed By: #### 2 4356-8, 630-4 ####[facility]ORATORYCLIA [id number] [place] [id number] [place] Specific gravity (U) [Rel density] 1.037 High 1.005-1.030 [facility] Comment on above: Order Comment: Speci men Type: URINE SPECIMENOrdering Facility: [facility] Address: [address] [place] [address] Performed By: #### 2 4356-8, 630-4 ####[facility]ORATORYCLIA [id number] [address] Urobilinogen Ql (U) Normal Normal Normal [facility] Comment on above: Order Comment: Speci men Type: URINE SPECIMENOrdering Facility: [facility] Address: [address] [place], [place] [address] Performed By: #### 2 4356-8, 630-4 ####[facility]ATORYCLIA [id number] [place] [address] [facility] WBC LM.HPF (Urine sed) [#/Area] /[HPF] Abnormal 0-5 /HPF [facility] Comment on above: Order Comment: Speci men Type: URINE SPECIMENOrdering Facility: [facility] Address: [address] [place] [address] Performed By: #### 2 4356-8, 630-4 ####[facility]ORATORYCLIA [id number] [place] [address] [facility] XR ABDOMEN 1V SUPINEon 02-16 XR ABDOMEN [...] EKG leads. No dilated gas-filled bowel loops. Pleat Patternmaker: CECILIA Transcribe Date/Time: Feb 16 2025 10:58P Dictated by : LAURYN ELLINGTON MD This examination was interpreted and the report reviewed and electronically signed by: LAURYN ELLINGTON MD on Feb 16 2025 10:59PM EST [id number] Normal [facility] XR ABDOMEN 1V SUPINE * * *Final [...] abundance of colonic stool. Other details above. Pleat Patternmaker: CECILIA Transcribe Date/Time: Feb 16 2025 9:11P Dictated by : KELSY CARDOZA MD This examination was interpreted and the report reviewed and electronically signed by: KELSY CARDOZA MD on Feb 16 2025 9:14PM EST [id number] Normal [facility] XR CHEST 1V FRONTALon 2024 XR CHEST [...] in the distal esophagus, suggest further advancement. Pleat Patternmaker: CECILIA Transcribe Date/Time: Feb 16 2025 8:45P Dictated by : PATY US MD This examination was interpreted and the report reviewed and electronically signed by: PATY US MD on Feb 16 2025 8:47PM EST [id number] Normal [facility] Bilirubin Test strip Ql (U)O rdered By: Tab Dupont on 02-15-2025 Bilirubin Ql (U) Negative Negative [facility] Ketones Test strip Ql (U)Ord ered By: Tab Dupont on 02-15-2025 Ketones Ql (U) Negative Negative [facility] Microscopic analysis of urin e for red blood cells (RBC)Ordered By: Tab Dupont on 02-15-2025 Microscopic analysis of urine for red blood cells (RBC) 10-25 SEEN /hpf 0-5 [facility] Mucus LM Ql (Urine sed)Order ed By: Tab Dupont on 02-15-2025 Mucus Ql (Urine sed) 0 SEEN /hpf [facility] Nitrite Test strip Ql (U)Ord ered By: Tab Dupont on 02-15-2025 Nitrite Ql (U) Positive High Negative [facility] Protein Test strip Ql (U)Ord ered By: Tab Dupont on 02-15-2025 Protein Ql (U) 100 mg/dl High Negative [facility] Squamous epithelial cells de tection in urine sediment by light microscopyOrdered By: Tab Dupont on 02-15-2025 Epithelial cells.squamous LM Ql (Urine sed) 0 SEEN /hpf 0-5 [facility] Urinalysis, Completeon 02-15 RBC 10-25 SEEN Normal 0-5 [facility] Comment on above: Order Comment: 301.2 Performed By: #### L 501.6710, L101.9900, L501.8820 #### [facility] [address] [place], [place], [id number] BACTERIA 2+ /hpf Normal None Seen [facility] Comment on above: Order Comment: 301.2 Performed By: #### L 501.6710, L101.9900, L501.8820 #### [facility] [address] [place], [address] WBC 25-50 SEEN Normal 0-5 [facility] Comment on above: Order Comment: 301.2 Performed By: #### L 501.6710, L101.9900, L501.8820 #### [facility] [address] [place], [address] EPI,SQUAMOUS 0 SEEN Normal 0-5 [facility] Comment on above: Order Comment: 301.2 Performed By: #### L 501.6710, L101.9900, L501.8820 #### [facility] [address] [place], [address] Mucus Ql (Urine sed) 0 SEEN Normal [facility] Comment on above: Order Comment: 301.2 Performed By: #### L 501.6710, L101.9900, L501.8820 #### [facility] [address] [place], [address] Urine clarityOrdered By: Regino Dupont on 02-15-2025 Clarity (U) Sl. Cloudy Clear [facility] Urine color determinationOrd ered By: Tab Dupont on 02-15-2025 Color (U) Yellow Yellow [facility] Urine cultureOrdered By: Regino Dupont on 02-15-2025 Bacteria identified Cx Nom (U) Citrobacter freundii Abnormal [facility] Bacteria identified Cx Nom (U) Providencia stuartii Abnormal [facility] Bacteria identified Cx Nom (U) Proteus mirabilis Abnormal [facility] Bacteria identified Cx Nom (U) Enterococcus faecalis Abnormal [facility] Urine glucose detectionOrder ed By: Tab Dupont on 02-15-2025 Glucose Ql (U) Normal mg/dl Normal [facility] Urine leukocyte esterase det ection by dipstickOrdered By: Tab Dupont on 02-15-2025 Leukocyte esterase Test strip Ql (U) 500 /ul High Negative [facility] Urine pHOrdered By: Tab cordova on 02-15-2025 pH (U) 6.5 [pH] 5.0 - 8.0 [facility] Urine sediment bacteria coun t by microscopy (number/high power field)Ordered By: Tab Dupont on 02-15-2025 Bacteria LM.HPF (Urine sed) [#/Area] 2 /[HPF] None Seen [facility] Urine specific gravity measu rementOrdered By: Tab Dupont on 02-15-2025 Specific gravity (U) [Rel density] 1.010 1.002-1.030 [facility] Urine urobilinogen measureme ntOrdered By: aTb Dupont on 02-15-2025 Urobilinogen Ql (U) Normal mg/dl Normal [facility] White blood cell countOrdere d By: Tab Dupont on 02-15-2025 White blood cell count 25-50 SEEN /hpf 0-5 [facility] CNOVon 01-31-2025 CNOV Office Visit (PLWDMR ) ANMOL REYNOLDS ([id number]) 1960 M Date Time Provider Department 01/31/25 [...] in motorized wheelchair Home Care Company/Nursing Facility: [place] [facility] Consent captured for debridement per (Provider) and good until Special Instructions (for example, patient stands at the bedside for exam/dressing): bed Anticoagulant Therapy: aspirin Living Situation (ie... Apartment, house, HALFWAY): [facility] Who lives with patient: facility Who [...] BY PROVIDER: Anesthetic Used: N/A applied per experimental mechanic spacecraft # 1 AND 2 Other procedure: Specimen [...] alginate AG Covered and secured with: 4x4 [place] SAP Other: COMPRESSION: N/A DME: [employer] order date __ DME: [employer] , PH: [phone] SPECIAL NEEDS: Coordination of care N/A Emotional support N/A OR set-up N/A Car Tester N/A Incontinence needs N/A DISCHARGED in stable condition to: facility in motorized wheelchair PLAN/ORDERS: - [facility] to see Milad Goodson MD in 6 weeks. - Blood work ordered please go to any [facility] lab. - Please send patient with medication list at next appointment. - Continue aggressive nutritional support to assist wound healing - CAT Scans AND MRI need to be scheduled through Central Scheduling. Call [phone].(If applicable) EDUCATION: The patient/family was instructed how [...] the p (more content not included)... Normal [facility] Anion gap in Serum or Plasma Ordered By: Tab Dupont on 01-09-2025 Anion gap [Moles/Vol] 12 mmol/L - [facility] BUN/creatinine ratioOrdered By: Tab Dupont on 01-09-2025 Urea nitrogen/Creatinine [Mass ratio] 17.9 mg/mg - [facility] Basic Metabolic Profile (BMP )on 01-09-2025 BUN/CRE 17.9 RATIO Normal 07-24 [facility] Comment on above: Order Comment: 301.2 Performed By: #### L 101.9900, L100.0500, L500.4050, L501.6710 #### [facility] [address] [place], [address] Calcium [Mass/Vol] 8.7 mg/dL Normal 7.6-11.0 [facility] Comment on above: Order Comment: 301.2 Performed By: #### L 101.9900, L100.0500, L500.4050, L501.6710 #### [facility] [address] [place], [address] Chloride [Moles/Vol] 110 mmol/L High 98-108 [facility] Comment on above: Order Comment: 301.2 Performed By: #### L 101.9900, L100.0500, L500.4050, L501.6710 #### [facility] [address] [place], [address] CO2 [Moles/Vol] 19.2 mmol/L Low 21.0-32.0 [facility] Comment on above: Order Comment: 301.2 Performed By: #### L 101.9900, L100.0500, L500.4050, L501.6710 #### [facility] [address] [place], [address] Creatinine [Mass/Vol] 0.42 mg/dL Low 0.70-1.20 [facility] Comment on above: Order Comment: 301.2 Performed By: #### L 101.9900, L100.0500, L500.4050, L501.6710 #### [facility] [address] [place], [address] GAP 12 Normal 5-15 [facility] Comment on above: Order Comment: 301.2 Performed By: #### L 101.9900, L100.0500, L500.4050, L501.6710 #### [facility] [address] [place], [address] GFR/1.73 sq M.predicted among non-blacks MDRD (S/P/Bld) [Vol rate/Area] 121 mL/min/{1.73_m2} Normal >60 [facility] Comment on above: Order Comment: 301.2 Result Comment: mL/m in/1.73m2 CKD-EPI Creatinine Equation (2020) Performed By: #### L 101.9900, L100.0500, L500.4050, L501.6710 #### [facility] [address] [place], [address] Glucose [Mass/Vol] 120 mg/dL High 70-99 [facility] Comment on above: Order Comment: 301.2 Performed By: #### L 101.9900, L100.0500, L500.4050, L501.6710 #### [facility] [address] [place], [address] Potassium [Moles/Vol] 4.0 mmol/L Normal 3.3-5.1 [facility] Comment on above: Order Comment: 301.2 Result Comment: Hemo lysis present, Results??could be affected. ?? Performed By: #### L 101.9900, L100.0500, L500.4050, L501.6710 #### [facility] [address] [place], [address] Sodium [Moles/Vol] 141 mmol/L Normal 133-145 [facility] Comment on above: Order Comment: 301.2 Performed By: #### L 101.9900, L100.0500, L500.4050, L501.6710 #### [facility] [address] [place], [address] Urea nitrogen [Mass/Vol] 8 mg/dL Normal 4-19 [facility] Comment on above: Order Comment: 301.2 Performed By: #### L 101.9900, L100.0500, L500.4050, L501.6710 #### [facility] [address] [place], [address] CBC-Complete Blood Cnt No ffon 01-09-2025 Erythrocyte distribution width (RBC) [Ratio] 13.9 % Normal 11.6-14.6 [facility] Comment on above: Order Comment: 301.2 Performed By: #### L 101.9900, L100.0500, L500.4050, L501.6710 #### [facility] [address] [place], [address] Hematocrit (Bld) [Volume fraction] 39.3 % Low 40-54 [facility] Comment on above: Order Comment: 301.2 Performed By: #### L 101.9900, L100.0500, L500.4050, L501.6710 #### [facility] [address] [place], [address] Hemoglobin (Bld) [Mass/Vol] 13.1 g/dL Normal 13.0-16.5 [facility] Comment on above: Order Comment: 301.2 Performed By: #### L 101.9900, L100.0500, L500.4050, L501.6710 #### [facility] [address] [place], [address] MCH (RBC) [Entitic mass] 30.9 pg Normal 27.0-32.0 [facility] Comment on above: Order Comment: 301.2 Performed By: #### L 101.9900, L100.0500, L500.4050, L501.6710 #### [facility] [address] [place], [address] MCHC (RBC) [Mass/Vol] 33.3 g/dL Normal 32-36 [facility] Comment on above: Order Comment: 301.2 Performed By: #### L 101.9900, L100.0500, L500.4050, L501.6710 #### [facility] [address] [place], [address] MCV (RBC) [Entitic vol] 92.7 fL Normal 80-94 [facility] Comment on above: Order Comment: 301.2 Performed By: #### L 101.9900, L100.0500, L500.4050, L501.6710 #### [facility] [address] [place], [address] Platelet mean volume (Bld) [Entitic vol] 11.1 fL Normal 6.2-12.0 [facility] Comment on above: Order Comment: 301.2 Performed By: #### L 101.9900, L100.0500, L500.4050, L501.6710 #### [facility] [address] [place], [address] Platelets (Bld) [#/Vol] 255 10*3/uL Normal 150-450 [facility] Comment on above: Order Comment: 301.2 Performed By: #### L 101.9900, L100.0500, L500.4050, L501.6710 #### [facility] [address] [place], [address] RBC (Bld) [#/Vol] 4.24 10*6/uL Low 4.6-6.2 [facility] Comment on above: Order Comment: 301.2 Performed By: #### L 101.9900, L100.0500, L500.4050, L501.6710 #### [facility] [address] [place], [address] RDW SD 47.3 fl High 35.1-43.9 [facility] Comment on above: Order Comment: 301.2 Performed By: #### L 101.9900, L100.0500, L500.4050, L501.6710 #### [facility] [address] [place], [address] WBC (Bld) [#/Vol] 7.1 10*3/uL Normal 4.4-11.0 [facility] Comment on above: Order Comment: 301.2 Performed By: #### L 101.9900, L100.0500, L500.4050, L501.6710 #### [facility] [address] [place], [address] Carbon dioxide, total [Moles /volume] in Central venous bloodOrdered By: Tab Dupont on 01-09-2025 CO2 [Moles/Vol] 19.2 mmol/L Low 21.0-32.0 [facility] Chloride assayOrdered By: Vinh Lehman on 01-09-2025 Chloride [Moles/Vol] 110 mmol/L High 98-108 [facility] Erythrocyte distribution wid th ratioOrdered By: Tab Dupont on 01-09-2025 Erythrocyte distribution width (RBC) [Ratio] 13.9 % 11.6-14.6 [facility] Erythrocyte distribution wid th standard deviationOrdered By: Tab Dupont on 01-09-2025 Erythrocyte distribution width (RBC) [Ratio] 47.3 fl High 35.1-43.9 [facility] Glomerular filtration rate ( GFR) estimation/1.73 sq m using serum, plasma, or whole bOrdered By: Tab Dupont on 01-09-2025 GFR/1.73 sq M.predicted among non-blacks MDRD (S/P/Bld) [Vol rate/Area] 121 mL/min/{1.73_m2} >60 [facility] Comment on above: mL/min/1.73m2 CKD-EP I Creatinine Equation (2020) Hematocrit Auto (Bld) [Volum e fraction]Ordered By: Tab Dupont on 01-09-2025 Hematocrit (Bld) [Volume fraction] 39.3 % Low 40-54 [facility] Hemoglobin measurementOrdere d By: Tab Dupont on 01-09-2025 Hemoglobin (Bld) [Mass/Vol] 13.1 g/dL 13.0-16.5 [facility] MCV (mean corpuscular volume ) determinationOrdered By: Tab Dupont on 01-09-2025 MCV (RBC) [Entitic vol] 92.7 fL 80-94 [facility] Mean corpuscular hemoglobin (MCH) determinationOrdered By: Tab Dupont on 01-09-2025 MCH (RBC) [Entitic mass] 30.9 pg 27.0-32.0 [facility] Mean corpuscular hemoglobin concentration (MCHC) determinationOrdered By: Tab Dupont on 01-09-2025 MCHC (RBC) [Mass/Vol] 33.3 g/dL 32-36 [facility] Mean platelet volume determi nationOrdered By: Tab Dupont on 01-09-2025 Platelet mean volume (Bld) [Entitic vol] 11.1 fL 6.2-12.0 [facility] Platelet countOrdered By: Vinh Lehman on 01-09-2025 Platelets (Bld) [#/Vol] 255 10*3/uL 150-450 [facility] Potassium measurement (mass/ volume)Ordered By: Tab Dupont on 01-09-2025 Potassium (Unsp spec) [Mass/Vol] 4.0 mmol/L 3.3-5.1 [facility] Comment on above: Hemolysis present, R esults could be affected. RBC Auto (Bld) [#/Vol]Ordere d By: Tab Dupont on 01-09-2025 RBC (Bld) [#/Vol] 4.24 10*6/uL Low 4.6-6.2 [facility] Serum creatinine measurement (mass/volume)Ordered By: Tab Dupont on 01-09-2025 Creatinine [Mass/Vol] 0.42 mg/dL Low 0.70-1.20 [facility] Serum glucose measurement (m ass/volume)Ordered By: Tab Dupont on 01-09-2025 Glucose [Mass/Vol] 120 mg/dL High 70-99 [facility] Serum or plasma calcium randall urement (mass/volume)Ordered By: Tab Dupont on 01-09-2025 Calcium [Mass/Vol] 8.7 mg/dL 7.6-11.0 [facility] Serum or plasma urea nitroge n measurement (mass/volume)Ordered By: Tab Dupont on 01-09-2025 Urea nitrogen [Mass/Vol] 8 mg/dL 4-19 [facility] Sodium levelOrdered By: Omar Dupont on 01-09-2025 Sodium [Moles/Vol] 141 mmol/L 133-145 [facility] White blood cell (WBC) count Ordered By: Tab Dupont on 01-09-2025 WBC (Bld) [#/Vol] 7.1 10*3/uL 4.4-11.0 [facility] MRI SACRUM/COCCYX WO/W IVCON on 01-04-2025 MRI SACRUM/COCCYX WO/W IVCON * * *Final Report* * * DATE OF EXAM: Jan 04 2025 9:45AM [facility] 0236 - MRI SACRUM/COCCYX WO/W IVCON [...] the adjacent S5 segment of the sacrum. Pleat Patternmaker: CECILIA Transcribe Date/Time: Jan 06 2025 1:16P Dictated by : COLE SHIPMAN DO This examination was interpreted and the report reviewed and electronically signed by: COLE SHIPMAN DO on Jan 06 2025 1:36PM EST [id number] N Normal [facility] Anion gap in Serum or Plasma Ordered By: Tab Dupont on 12-07-2024 Anion gap [Moles/Vol] 10 mmol/L -15 [facility] BUN/creatinine ratioOrdered By: Tab Dupont on 12-07-2024 Urea nitrogen/Creatinine [Mass ratio] 20.1 mg/mg High [facility] Basic Metabolic Profile (BMP )on 12-07-2024 BUN/CRE 20.1 RATIO High [address] [place] [address] Comment on above: Order Comment: 301.2 Performed By: #### L 501.6710, L101.9900, L501.8820 #### [facility] [address] [place], [address] Calcium [Mass/Vol] 8.6 mg/dL Normal 7.6-11.0 [facility] Comment on above: Order Comment: 301.2 Performed By: #### L 501.6710, L101.9900, [id number] #### [facility] [address] [place], [address] Chloride [Moles/Vol] 104 mmol/L Normal 98-108 [facility] Comment on above: Order Comment: 301.2 Performed By: #### L 501.6710, L101.9900, [id number] #### [facility] [address] [place], [address] CO2 [Moles/Vol] 21.3 mmol/L Normal 21.0-32.0 [facility] Comment on above: Order Comment: 301.2 Performed By: #### L 501.6710, L101.9900, [id number] #### [facility] [address] [place], [address] Creatinine [Mass/Vol] 0.47 mg/dL Low 0.70-1.20 [facility] Comment on above: Order Comment: 301.2 Performed By: #### L 501.6710, L101.9900, [id number] #### [facility] [address] [place], [address] GAP 10 Normal 5-15 [facility] Comment on above: Order Comment: 301.2 Performed By: #### L 501.6710, L101.9900, [id number] #### [facility] [address] [place], [address] GFR/1.73 sq M.predicted among non-blacks MDRD (S/P/Bld) [Vol rate/Area] 117 mL/min/{1.73_m2} Normal >60 [facility] Comment on above: Order Comment: 301.2 Result Comment: mL/m in/1.73m2 CKD-EPI Creatinine Equation (2020) Performed By: #### L 501.6710, L101.9900, [id number] #### [facility] [address] [place], [address] Glucose [Mass/Vol] 194 mg/dL High 70-99 [facility] Comment on above: Order Comment: 301.2 Performed By: #### L 501.6710, L101.9900, [id number] #### [facility] [address] [place], [address] Potassium [Moles/Vol] 4.3 mmol/L Normal 3.3-5.1 [facility] Comment on above: Order Comment: 301.2 Performed By: #### L 501.6710, L101.9900, [id number] #### [facility] [address] [place], [address] Sodium [Moles/Vol] 136 mmol/L Normal 133-145 [facility] Comment on above: Order Comment: 301.2 Performed By: #### L 501.6710, L101.9900, [id number] #### [facility] [address] [place], [address] Urea nitrogen [Mass/Vol] 9 mg/dL Normal 4-19 [facility] Comment on above: Order Comment: 301.2 Performed By: #### L 501.6710, L101.9900, [id number] #### [facility] [address] [place], [address] CBC-Complete Blood Cnt No Di ffon 12-07-2024 Erythrocyte distribution width (RBC) [Ratio] 14.0 % Normal 11.6-14.6 [facility] Comment on above: Order Comment: 301.2 Performed By: #### L 501.6710, L101.9900, [id number] #### [facility] [address] [place], [address] Hematocrit (Bld) [Volume fraction] 38.2 % Low 40-54 [facility] Comment on above: Order Comment: 301.2 Performed By: #### L 501.6710, L101.9900, [id number] #### [facility] [address] [place], [address] Hemoglobin (Bld) [Mass/Vol] 12.8 g/dL Low 13.0-16.5 [facility] Comment on above: Order Comment: 301.2 Performed By: #### L 501.6710, L101.9900, [id number] #### [facility] [address] [place], [address] MCH (RBC) [Entitic mass] 30.9 pg Normal 27.0-32.0 [facility] Comment on above: Order Comment: 301.2 Performed By: #### L 501.6710, L101.9900, [id number] #### [facility] [address] [place], [address] MCHC (RBC) [Mass/Vol] 33.5 g/dL Normal 32-36 [facility] Comment on above: Order Comment: 301.2 Performed By: #### L 501.6710, L101.9900, [id number] #### [facility] [address] [place], [address] MCV (RBC) [Entitic vol] 92.3 fL Normal 80-94 [facility] [place] Comment on above: Order Comment: 301.2 Performed By: #### L 501.6710, L101.9900, [id number] #### [facility] [address] [place], [address] Platelet mean volume (Bld) [Entitic vol] 10.5 fL Normal 6.2-12.0 [facility] Comment on above: Order Comment: 301.2 Performed By: #### L 501.6710, L101.9900, [id number] #### [facility] [address] [place], [address] Platelets (Bld) [#/Vol] 241 10*3/uL Normal 150-450 [facility] Comment on above: Order Comment: 301.2 Performed By: #### L 501.6710, L101.9900, [id number] #### [facility] [address] [place], [address] RBC (Bld) [#/Vol] 4.14 10*6/uL Low 4.6-6.2 [facility] Comment on above: Order Comment: 301.2 Performed By: #### L 501.6710, L101.9900, [id number] #### [facility] [address] [place], [address] RDW SD 47.9 fl High 35.1-43.9 [facility] Comment on above: Order Comment: 301.2 Performed By: #### L 501.6710, L101.9900, [id number] #### [facility] [address] [place], [address] WBC (Bld) [#/Vol] 6.6 10*3/uL Normal 4.4-11.0 [facility] Comment on above: Order Comment: 301.2 Performed By: #### L 501.6710, L101.9900, [id number] #### [facility] [address] [place], [address] Carbon dioxide, total [Moles /volume] in Central venous bloodOrdered By: Tab Dupont on 12-07-2024 CO2 [Moles/Vol] 21.3 mmol/L 21.0-32.0 [facility] Chloride assayOrdered By: Vinh Lehman on 12-07-2024 Chloride [Moles/Vol] 104 mmol/L 98-108 [facility] Erythrocyte distribution wid th ratioOrdered By: Tab Dupont on 12-07-2024 Erythrocyte distribution width (RBC) [Ratio] 14.0 % 11.6-14.6 [facility] Erythrocyte distribution wid th standard deviationOrdered By: Tab Dupont on 12-07-2024 Erythrocyte distribution width (RBC) [Entitic vol] 47.9 fL High 35.1-43.9 [facility] Erythrocyte distribution width (RBC) [Ratio] 47.9 fl High 35.1-43.9 [facility] GFR/1.73 sq M.predicted trish g non-blacks MDRD (S/P/Bld) [Vol rate/Area]Ordered By: Tab Dupont on 12-07-2024 Estimated GFR (MDRD) Non-Af Amer 117 >60 [facility] Comment on above: mL/min/1.73m2 CKD-EP I Creatinine Equation (2020) Glomerular filtration rate ( GFR) estimation/1.73 sq m using serum, plasma, or whole bOrdered By: Tab Dupont on 12-07-2024 GFR/1.73 sq M.predicted among non-blacks MDRD (S/P/Bld) [Vol rate/Area] 117 mL/min/{1.73_m2} >60 [facility] Comment on above: mL/min/1.73m2 CKD-EP I Creatinine Equation (2020) Hematocrit Auto (Bld) [Volum e fraction]Ordered By: Tab Dupont on 12-07-2024 Hematocrit (Bld) [Volume fraction] 38.2 % Low 40-54 [facility] Hemoglobin measurementOrdere d By: Tab Dupont on 12-07-2024 Hemoglobin (Bld) [Mass/Vol] 12.8 g/dL Low 13.0-16.5 [facility] MCV (mean corpuscular volume ) determinationOrdered By: Tab Dupont on 12-07-2024 MCV (RBC) [Entitic vol] 92.3 fL 80-94 [facility] [place] Mean corpuscular hemoglobin (MCH) determinationOrdered By: Tab Dupont on 12-07-2024 MCH (RBC) [Entitic mass] 30.9 pg 27.0-32.0 [facility] Mean corpuscular hemoglobin concentration (MCHC) determinationOrdered By: Tab Dupont on 12-07-2024 MCHC (RBC) [Mass/Vol] 33.5 g/dL 32-36 [facility] Mean platelet volume determi nationOrdered By: Tab Dupont on 12-07-2024 Platelet mean volume (Bld) [Entitic vol] 10.5 fL 6.2-12.0 [facility] Platelet countOrdered By: Vinh Lehman on 12-07-2024 Platelets (Bld) [#/Vol] 241 10*3/uL 150-450 [facility] Potassium (Unsp spec) [Mass/ Vol]Ordered By: Tab Dupont on 12-07-2024 Potassium [Moles/Vol] 4.3 mmol/L 3.3-5.1 [facility] Potassium measurement (mass/ volume)Ordered By: Tab Dupont on 12-07-2024 Potassium (Unsp spec) [Mass/Vol] 4.3 mmol/L 3.3-5.1 [facility] RBC Auto (Bld) [#/Vol]Ordere d By: Tab Dupont on 12-07-2024 RBC (Bld) [#/Vol] 4.14 10*6/uL Low 4.6-6.2 [facility] Serum creatinine measurement (mass/volume)Ordered By: Tab Dupont on 12-07-2024 Creatinine [Mass/Vol] 0.47 mg/dL Low 0.70-1.20 [facility] Serum glucose measurement (m ass/volume)Ordered By: Tab Dupont on 12-07-2024 Glucose [Mass/Vol] 194 mg/dL High 70-99 [facility] Serum or plasma calcium randall urement (mass/volume)Ordered By: Tab Dupont on 12-07-2024 Calcium [Mass/Vol] 8.6 mg/dL 7.6-11.0 [facility] Serum or plasma urea nitroge n measurement (mass/volume)Ordered By: Tab Dupont on 12-07-2024 Urea nitrogen [Mass/Vol] 9 mg/dL 4-19 [facility] Sodium levelOrdered By: Omar Dupont on 12-07-2024 Sodium [Moles/Vol] 136 mmol/L 133-145 [facility] White blood cell (WBC) count Ordered By: Tab Dupont on 12-07-2024 WBC (Bld) [#/Vol] 6.6 10*3/uL 4.4-11.0 [facility] Urine Cultureon 12-02-2024 [facility] STRAIGHT CATH Copy of report sent to Infection Control Printer [id number] 12/02/24 1017 JIM. Urine Culture RESULTS CALLED TO LUKASZ Batista 12/02/24 1021 Erika Rosario. REPORT READ BACK BY . Citrobacter freundii [place] Count >100,000 Providencia stuartii Providencia stuartii MARKER [...] R Vancomycin Islt HARINDER 1 S Normal [facility] Comment on above: Performed By: #### L 101.9900, L100.0500, L500.4050, L501.6710 #### [facility] [address] [place], [address] BUN/creatinine ratioOrdered By: Tab Dupont on 11-30-2024 Urea nitrogen/Creatinine [Mass ratio] 23.9 mg/mg High 10-20 [facility] Basic Metabolic Profile (BMP )on 11-30-2024 Anion gap [Moles/Vol] 9 mmol/L Normal 5-15 [facility] Comment on above: Order Comment: 301.2 Performed By: #### L 501.6710, L101.9900, [id number] #### [facility] [address] [place], [address] BUN/CRE 23.9 RATIO High 10-20 [facility] Comment on above: Order Comment: 301.2 Performed By: #### L 501.6710, L101.9900, [id number] #### [facility] [address] [place], [address] Calcium [Mass/Vol] 8.4 mg/dL Normal 7.6-11.0 [facility] Comment on above: Order Comment: 301.2 Performed By: #### L 501.6710, L101.9900, [id number] #### [facility] [address] [place], [address] Chloride [Moles/Vol] 105 mmol/L Normal 96-108 [facility] Comment on above: Order Comment: 301.2 Performed By: #### L 501.6710, L101.9900, [id number] #### [facility] [address] [place], [address] CO2 [Moles/Vol] 22.7 mmol/L Normal 22.0-29.0 [facility] Comment on above: Order Comment: 301.2 Performed By: #### L 501.6710, L101.9900, [id number] #### [facility] [address] [place], [address] Creatinine [Mass/Vol] 0.4 mg/dL Low 0.8-1.3 [facility] Comment on above: Order Comment: 301.2 Performed By: #### L 501.6710, L101.9900, [id number] #### [facility] [address] [place], [address] GFR/1.73 sq M.predicted among non-blacks MDRD (S/P/Bld) [Vol rate/Area] 120 mL/min/{1.73_m2} Normal >60 [facility] Comment on above: Order Comment: 301.2 Result Comment: mL/m in/1.73m2 CKD-EPI Creatinine Equation (2020) Performed By: #### L 501.6710, L101.9900, [id number] #### [facility] [address] [place], [address] Glucose [Mass/Vol] 170 mg/dL High 70-99 [facility] Comment on above: Order Comment: 301.2 Performed By: #### L 501.6710, L101.9900, [id number] #### [facility] [address] [place], [address] Potassium [Moles/Vol] 3.8 mmol/L Normal 3.3-5.1 [facility] Comment on above: Order Comment: 301.2 Performed By: #### L 501.6710, L101.9900, [id number] #### [facility] [address] [place], [address] Sodium [Moles/Vol] 137 mmol/L Normal 133-145 [facility] Comment on above: Order Comment: 301.2 Performed By: #### L 501.6710, L101.9900, [id number] #### [facility] [address] [place], [address] Urea nitrogen [Mass/Vol] 10 mg/dL Normal 4-19 [facility] Comment on above: Order Comment: 301.2 Performed By: #### L 501.6710, L101.9900, [id number] #### [facility] [address] [place], [address] CBC-Complete Blood Cnt No Di ffon 11-30-2024 Erythrocyte distribution width (RBC) [Ratio] 13.7 % Normal 11.6-14.6 [facility] Comment on above: Order Comment: 301.2 Performed By: #### L 501.6710, L101.9900, [id number] #### [facility] [address] [place], [address] Hematocrit (Bld) [Volume fraction] 37.1 % Low 40-54 [facility] Comment on above: Order Comment: 301.2 Performed By: #### L 501.6710, L101.9900, [id number] #### [facility] [address] [place], [address] Hemoglobin (Bld) [Mass/Vol] 12.0 g/dL Low 13.0-16.5 [facility] Comment on above: Order Comment: 301.2 Performed By: #### L 501.6710, L101.9900, [id number] #### [facility] [address] [place], [address] MCH (RBC) [Entitic mass] 29.9 pg Normal 27.0-32.0 [facility] Comment on above: Order Comment: 301.2 Performed By: #### L 501.6710, L101.9900, [id number] #### [facility] [address] [place], [address] MCHC (RBC) [Mass/Vol] 32.3 g/dL Normal 32-36 [facility] Comment on above: Order Comment: 301.2 Performed By: #### L 501.6710, L101.9900, [id number] #### [facility] [address] [place], [address] MCV (RBC) [Entitic vol] 92.5 fL Normal 80-94 [facility] [place] Comment on above: Order Comment: 301.2 Performed By: #### L 501.6710, L101.9900, [id number] #### [facility] [address] [place], [address] Platelet mean volume (Bld) [Entitic vol] 11.1 fL Normal 6.2-12.0 [facility] Comment on above: Order Comment: 301.2 Performed By: #### L 501.6710, L101.9900, [id number] #### [facility] [address] [place], [address] Platelets (Bld) [#/Vol] 230 10*3/uL Normal 150-450 [facility] Comment on above: Order Comment: 301.2 Performed By: #### L 501.6710, L101.9900, [id number] #### [facility] [address] [place], [address] RBC (Bld) [#/Vol] 4.01 10*6/uL Low 4.6-6.2 [facility] Comment on above: Order Comment: 301.2 Performed By: #### L 501.6710, L101.9900, [id number] #### [facility] [address] [place], [address] RDW SD 46.8 fl High 35.1-43.9 [facility] Comment on above: Order Comment: 301.2 Performed By: #### L 501.6710, L101.9900, [id number] #### [facility] [address] [place], [place], [address] WBC (Bld) [#/Vol] 6.3 10*3/uL Normal 4.4-11.0 [facility] Comment on above: Order Comment: 301.2 Performed By: #### L 501.6710, L101.9900, [id number] #### [facility] [address] [place], [place], [address] Carbon dioxide measurementOr dered By: Tab Dupont on 11-30-2024 CO2 [Moles/Vol] 22.7 mmol/L 22.0-29.0 [facility] Chloride measurementOrdered By: Tab Dupont on 11-30-2024 Chloride [Moles/Vol] 105 mmol/L 96-108 [facility] Creatinine [Moles/Vol]Ordere d By: Tab Dupont on 11-30-2024 Creatinine [Mass/Vol] 0.4 mg/dL Low 0.8-1.3 [facility] Erythrocyte distribution wid th ratioOrdered By: Tab Dupont on 11-30-2024 Erythrocyte distribution width (RBC) [Ratio] 13.7 % 11.6-14.6 [facility] Erythrocyte distribution wid th standard deviationOrdered By: Tab Dupont on 11-30-2024 Erythrocyte distribution width (RBC) [Entitic vol] 46.8 fL High 35.1-43.9 [facility] Erythrocyte distribution width (RBC) [Ratio] 46.8 fl High 35.1-43.9 [facility] GFR/1.73 sq M.predicted trish g non-blacks MDRD (S/P/Bld) [Vol rate/Area]Ordered By: Tab Dupont on 11-30-2024 Estimated GFR (MDRD) Non-Af Amer 120 >60 [facility] Comment on above: mL/min/1.73m2 CKD-EP I Creatinine Equation (2020) Glomerular filtration rate ( GFR) estimation/1.73 sq m using serum, plasma, or whole bOrdered By: Tab Dupont on 11-30-2024 GFR/1.73 sq M.predicted among non-blacks MDRD (S/P/Bld) [Vol rate/Area] 120 mL/min/{1.73_m2} >60 [facility] Comment on above: mL/min/1.73m2 CKD-EP I Creatinine Equation (2020) Hematocrit Auto (Bld) [Volum e fraction]Ordered By: Tab Dupont on 11-30-2024 Hematocrit (Bld) [Volume fraction] 37.1 % Low 40-54 [facility] Hemoglobin measurementOrdere d By: Tab Dupont on 11-30-2024 Hemoglobin (Bld) [Mass/Vol] 12.0 g/dL Low 13.0-16.5 [facility] MCV (mean corpuscular volume ) determinationOrdered By: Tab Dupont on 11-30-2024 MCV (RBC) [Entitic vol] 92.5 fL 80-94 [facility] [place] Mean corpuscular hemoglobin (MCH) determinationOrdered By: Tab Dupont on 11-30-2024 MCH (RBC) [Entitic mass] 29.9 pg 27.0-32.0 [facility] Mean corpuscular hemoglobin concentration (MCHC) determinationOrdered By: Tab Dupont on 11-30-2024 MCHC (RBC) [Mass/Vol] 32.3 g/dL 32-36 [facility] Mean platelet volume determi nationOrdered By: Tab Dupont on 11-30-2024 Platelet mean volume (Bld) [Entitic vol] 11.1 fL 6.2-12.0 [facility] Platelet countOrdered By: Vinh Lehman on 11-30-2024 Platelets (Bld) [#/Vol] 230 10*3/uL 150-450 [facility] RBC Auto (Bld) [#/Vol]Ordere d By: Tab Dupont on 11-30-2024 RBC (Bld) [#/Vol] 4.01 10*6/uL Low 4.6-6.2 [facility] Serum glucose measurement (m ass/volume)Ordered By: Tab Dupont on 11-30-2024 Glucose [Mass/Vol] 170 mg/dL High 70-99 [facility] Serum or plasma anion gap de termination (moles/volume)Ordered By: Tab Dupont on 11-30-2024 Anion gap [Moles/Vol] 9 mmol/L 5-15 [facility] Serum or plasma calcium randall urement (mass/volume)Ordered By: Tab Dupont on 11-30-2024 Calcium [Mass/Vol] 8.4 mg/dL 7.6-11.0 [facility] Serum or plasma creatinine m easurement (moles/volume)Ordered By: Tab Dupont on 11-30-2024 Creatinine [Moles/Vol] 0.4 mg/dL Low 0.8-1.3 [facility] Serum or plasma potassium me asurementOrdered By: Tab Dupont on 11-30-2024 Potassium [Moles/Vol] 3.8 mmol/L 3.3-5.1 [facility] Serum or plasma sodium measu rement (moles/volume)Ordered By: Tab Dupont on 11-30-2024 Sodium [Moles/Vol] 137 mmol/L 133-145 [facility] Serum or plasma urea nitroge n measurement (mass/volume)Ordered By: Tab Dupont on 11-30-2024 Urea nitrogen [Mass/Vol] 10 mg/dL 4-19 [facility] White blood cell (WBC) count Ordered By: Tab Dupont on 11-30-2024 WBC (Bld) [#/Vol] 6.3 10*3/uL 4.4-11.0 [facility] Bilirubin Test strip Ql (U)O rdered By: Daisy Costello on 11-29-2024 Bilirubin Ql (U) Negative Negative [facility] Epithelial cells.squamous LM Ql (Urine sed)Ordered By: Daisy Costello on 11-29-2024 Epithelial cells.squamous LM.HPF (Urine sed) [#/Area] 0 /[HPF] 0-5 [facility] Glucose Ql (U)Ordered By: Jose Costello on 11-29-2024 Urine Glucose (UA) Normal mg/dl Normal [facility] Ketones Test strip Ql (U)Ord ered By: Daisy Costello on 11-29-2024 Ketones Ql (U) Negative Negative [facility] Microscopic analysis of urin e for red blood cells (RBC)Ordered By: Daisy Costello on 11-29-2024 Microscopic analysis of urine for red blood cells (RBC) 10-25 SEEN /hpf 0-5 [facility] Urine RBC 10-25 SEEN /hpf 0-5 [facility] Mucus LM Ql (Urine sed)Order ed By: Daisy Costello on 11-29-2024 Mucus Ql (Urine sed) 0 SEEN /hpf [facility] Nitrite Test strip Ql (U)Ord ered By: Daisy Costello on 11-29-2024 Nitrite Ql (U) Positive High Negative [facility] Protein Test strip Ql (U)Ord ered By: Daisy Costello on 11-29-2024 Protein Ql (U) 100 mg/dl High Negative [facility] Squamous epithelial cells de tection in urine sediment by light microscopyOrdered By: Daisy Costello on 11-29-2024 Epithelial cells.squamous LM Ql (Urine sed) 0 SEEN /hpf 0-5 [facility] Urinalysis, Completeon 11-29 BACTERIA 1+ /hpf Normal None Seen [facility] Comment on above: Order Comment: 301.2 Performed By: #### L 101.9900, L100.0500, L500.4050, L501.6710 #### [facility] [address] [place], [address] RBC 10-25 SEEN Normal 0-5 [facility] Comment on above: Order Comment: 301.2 Performed By: #### L 101.9900, L100.0500, L500.4050, L501.6710 #### [facility] [address] [place], [address] WBC >100 SEEN Normal 0-5 [facility] Comment on above: Order Comment: 301.2 Performed By: #### L 101.9900, L100.0500, L500.4050, L501.6710 #### [facility] [address] [place], [address] EPI,SQUAMOUS 0 SEEN Normal 0-5 [facility] Comment on above: Order Comment: 301.2 Performed By: #### L 101.9900, L100.0500, L500.4050, L501.6710 #### [facility] [address] [place], [address] Mucus Ql (Urine sed) 0 SEEN Normal [facility] Comment on above: Order Comment: 301.2 Performed By: #### L 101.9900, L100.0500, L500.4050, L501.6710 #### [facility] [address] [place], [address] Urine blood detectionOrdered By: Daisy Costello on 11-29-2024 Urine Occult Blood 250 /ul High Negative [facility] Urine clarityOrdered By: Ward Costello on 11-29-2024 Clarity (U) Cloudy Clear [facility] Urine color determinationOrd ered By: Daisy Costello on 11-29-2024 Color (U) Yellow Yellow [facility] Urine cultureOrdered By: Ward Costello on 11-29-2024 Bacteria identified Cx Nom (U) Citrobacter freundii Abnormal [facility] Bacteria identified Cx Nom (U) Providencia stuartii Abnormal [facility] Bacteria identified Cx Nom (U) Enterococcus faecalis Abnormal [facility] Bacteria identified Cx Nom (U) Citrobacter freundii Abnormal [facility] Bacteria identified Cx Nom (U) Providencia stuartii Abnormal [facility] Bacteria identified Cx Nom (U) Enterococcus faecalis Abnormal [facility] Urine glucose detectionOrder ed By: Daisy Costello on 11-29-2024 Glucose Ql (U) Normal mg/dl Normal [facility] Urine leukocyte esterase det ection by dipstickOrdered By: Daisy Costello on 11-29-2024 Leukocyte esterase Test strip Ql (U) 500 /ul High Negative [facility] Urine pHOrdered By: Colin on 11-29-2024 pH (U) 6.5 [pH] 5.0 - 8.0 [facility] Urine sediment bacteria coun t by microscopy (number/high power field)Ordered By: Daisy Costello on 11-29-2024 Bacteria LM.HPF (Urine sed) [#/Area] 1 /[HPF] None Seen [facility] Urine specific gravity measu rementOrdered By: aDisy Costello on 11-29-2024 Specific gravity (U) [Rel density] 1.010 1.002-1.030 [facility] Urine urobilinogen measureme ntOrdered By: Daisy Costello on 11-29-2024 Urobilinogen Ql (U) Normal mg/dl Normal [facility] Urobilinogen Ql (U)Ordered B y: Daisy Costello on 11-29-2024 Urine Urobilinogen Normal mg/dl Normal [facility] White blood cell countOrdere d By: Daisy Costello on 11-29-2024 Urine WBC >100 SEEN /hpf 0-5 [facility] White blood cell count >100 SEEN /hpf 0-5 [facility] Progress Noteson 11-08-2024 [employer] Techn[employer] Authentication Interface Message Text Documentation: Mode: Video [...] in-person visit with [facility]. Faisal Simeon, 11/08/2024 Normal [facility] 10-27-2024 36 Returned call unable to leave message doug was out for the day [facility] 10-26-2024 36 Name of caller: [facility] Contact phone number: [phone] Relationship to Patient: Neno Delvalle Provider: Dr. Gillette Practice: [facility] Chief Complaint/Reason for Call: Doug states she missed a call from the office to schedule the patient and would like a return call. Please review. Best time of day caller can be reached: any Patient advised that office/PCP has 24-48 business hours to return their call: Yes Normal [facility] 36 Called and left message to call to reschedule appointment Normal [facility] 10-25-2024 36 Name of Caller: Dax Contact Reason for Appointment: Please call to r/s cx appt for 10.26.24 due to weather conditions. Follow up for pain management//no showed on 08.04.24// Doug from [place] [facility] made appt//medicare medicaid Office Name: [facility] Medication Refills need, if any: n/a Medication Name: n/a Normal [facility] Basic Metabolic Profile (BMP )on 10-10-2024 BUN/CRE 19.6 RATIO Normal 10-20 [facility] Comment on above: Order Comment: 301.2 0000 Performed By: #### L 501.6710, L101.9900, L501.8820 #### [facility] [address] [place], [address] CA,Total 8.7 mg/dL Normal 8.5-10.1 [facility] Comment on above: Order Comment: 301.2 0000 Performed By: #### L 501.6710, L101.9900, [id number] #### [facility] [address] [place], [address] Chloride [Moles/Vol] 109 mmol/L High 98-107 [facility] Comment on above: Order Comment: 301.2 0000 Performed By: #### L 501.6710, L101.9900, [id number] #### [facility] [address] [place], [address] CO2 [Moles/Vol] 22.0 mmol/L Normal 21.0-32.0 [facility] Comment on above: Order Comment: 301.2 0000 Performed By: #### L 501.6710, L101.9900, L501.8820 #### [facility] [address] [place], [address] Creatinine [Mass/Vol] 0.56 mg/dL Low 0.70-1.30 [facility] Comment on above: Order Comment: 301.2 0000 Result Comment: The validity of the calculated GFR GFRAA in patients over 70 years has not been determined. Clinical correlation is essential. Performed By: #### L 501.6710, L101.9900, L501.8820 #### [facility] [address] [place], [address] EST GFR - AA 189 mL/min Normal >60 [facility] Comment on above: Order Comment: 301.2 0000 Result Comment: Afri can Citizen Of [place] GFR Calc Performed By: #### L 501.6710, L101.9900, L501.8820 #### [facility] [address] [place], [address] GAP 7 Normal 5-15 [facility] Comment on above: Order Comment: 301.2 0000 Performed By: #### L 501.6710, L101.9900, L501.8820 #### [facility] [address] [place], [address] GFR/1.73 sq M.predicted among non-blacks MDRD (S/P/Bld) [Vol rate/Area] 156 mL/min/{1.73_m2} Normal >60 [facility] Comment on above: Order Comment: 301.2 0000 Result Comment: Non- GFR Calc Performed By: #### L 501.6710, L101.9900, L501.8820 #### [facility] [address] [place], [address] Glucose [Mass/Vol] 108 mg/dL High 74-106 [facility] Comment on above: Order Comment: 301.2 0000 Result Comment: Fast ing Glucose result from 100 to 125 mg/dL suggests IMPAIRED HOMEOSTASIS per A.D.A. criteria. Performed By: #### L 501.6710, L101.9900, L501.8820 #### [facility] [address] [place], [address] Potassium [Moles/Vol] 4.0 mmol/L Normal 3.5-5.1 [facility] Comment on above: Order Comment: 301.2 0000 Performed By: #### L 501.6710, L101.9900, [id number] #### [facility] [address] [place], [address] Sodium [Moles/Vol] 139 mmol/L Normal 136-145 [facility] Comment on above: Order Comment: 301.2 0000 Performed By: #### L 501.6710, L101.9900, [id number] #### [facility] [address] [place], [address] Urea nitrogen [Mass/Vol] 11 mg/dL Normal 7-18 [facility] Comment on above: Order Comment: 301.2 0000 Performed By: #### L 501.6710, L101.9900, L501.8820 #### [facility] [address] [place], [address] Blood urea nitrogen (BUN)/cr eatinine ratioOrdered By: Tab Dupont on 10-10-2024 Urea nitrogen/Creatinine [Mass ratio] 19.6 mg/mg 10-20 [facility] CBC-Complete Blood Cnt No Di ffon 10-10-2024 Erythrocyte distribution width (RBC) [Ratio] 13.9 % Normal 11.6-14.6 [facility] Comment on above: Order Comment: 313-2 Performed By: #### L 100.0500, L500.2500 #### [facility] [address] [place], [address] Hematocrit (Bld) [Volume fraction] 42.2 % Normal 40-54 [facility] Comment on above: Order Comment: 313-2 Performed By: #### L 100.0500, L500.2500 #### [facility] [address] [place], [address] Hemoglobin (Bld) [Mass/Vol] 13.4 g/dL Normal 13.0-16.5 [facility] Comment on above: Order Comment: 313-2 Performed By: #### L 100.0500, L500.2500 #### [facility] [address] [place], [address] MCH (RBC) [Entitic mass] 29.8 pg Normal 27.0-32.0 [facility] Comment on above: Order Comment: 313-2 Performed By: #### L 100.0500, L500.2500 #### [facility] [address] [place], [address] MCHC (RBC) [Mass/Vol] 31.8 g/dL Low 32-36 [facility] Comment on above: Order Comment: 313-2 Performed By: #### L 100.0500, L500.2500 #### [facility] [address] [place], [address] MCV (RBC) [Entitic vol] 94.0 fL Normal 80-94 [facility] Comment on above: Order Comment: 313-2 Performed By: #### L 100.0500, L500.2500 #### [facility] [address] [place], [address] Platelet mean volume (Bld) [Entitic vol] 10.5 fL Normal 6.2-12.0 [facility] Comment on above: Order Comment: 313-2 Performed By: #### L 100.0500, L500.2500 #### [facility] [address] [place], [address] Platelets (Bld) [#/Vol] 283 10*3/uL Normal 150-450 [facility] Comment on above: Order Comment: 313-2 Performed By: #### L 100.0500, L500.2500 #### [facility] [address] [place], [address] RBC (Bld) [#/Vol] 4.49 10*6/uL Low 4.6-6.2 [facility] Comment on above: Order Comment: 313-2 Performed By: #### L 100.0500, L500.2500 #### [facility] [address] [place], [address] RDW SD 47.8 fl High 35.1-43.9 [facility] Comment on above: Order Comment: 313-2 Performed By: #### L 100.0500, L500.2500 #### [facility] [address] [place], [address] WBC (Bld) [#/Vol] 7.7 10*3/uL Normal 4.4-11.0 [facility] Comment on above: Order Comment: 313-2 Performed By: #### L 100.0500, L500.2500 #### [facility] [address] [place], [address] Carbon dioxide measurementOr dered By: Tab Dupont on 10-10-2024 CO2 [Moles/Vol] 22.0 mmol/L 21.0-32.0 [facility] Chloride measurementOrdered By: Tab Dupont on 10-10-2024 Chloride [Moles/Vol] 109 mmol/L High 98-107 [facility] Erythrocyte distribution wid th ratioOrdered By: Tab Dupont on 10-10-2024 Erythrocyte distribution width (RBC) [Ratio] 13.9 % 11.6-14.6 [facility] Erythrocyte distribution wid th standard deviationOrdered By: Tab Dupont on 10-10-2024 Erythrocyte distribution width (RBC) [Entitic vol] 47.8 fL High 35.1-43.9 [facility] Estimated glomerular filtrat ion rate (GFR) AmericanOrdered By: Tab Dupont on 10-10-2024 Estimated GFR (MDRD) Amer 189 mL/min >60 [facility] Comment on above: GFR Calc Glomerular filtration rate ( GFR) estimationOrdered By: Tab Dupont on 10-10-2024 Estimated GFR (MDRD) Non-Af Amer 156 mL/min >60 [facility] Comment on above: Non- GFR Calc Glucose measurementOrdered B y: Tab Dupont on 10-10-2024 Glucose [Mass/Vol] 108 mg/dL High 74-106 [facility] Comment on above: Fasting Glucose resu lt from 100 to 125 mg/dL suggests IMPAIRED HOMEOSTASIS per A.D.A. criteria. Hematocrit Auto (Bld) [Volum e fraction]Ordered By: Tab Dupont on 10-10-2024 Hematocrit (Bld) [Volume fraction] 42.2 % 40-54 [facility] Hemoglobin measurementOrdere d By: Tab Dupont on 10-10-2024 Hemoglobin (Bld) [Mass/Vol] 13.4 g/dL 13.0-16.5 [facility] MCV (mean corpuscular volume ) determinationOrdered By: Tab Dupont on 10-10-2024 MCV (RBC) [Entitic vol] 94.0 fL 80-94 [facility] Mean corpuscular hemoglobin (MCH) determinationOrdered By: Tab Dupont on 10-10-2024 MCH (RBC) [Entitic mass] 29.8 pg 27.0-32.0 [facility] Mean corpuscular hemoglobin concentration (MCHC) determinationOrdered By: Tab Dupont on 10-10-2024 MCHC (RBC) [Mass/Vol] 31.8 g/dL Low 32-36 [facility] Mean platelet volume determi nationOrdered By: Tab Dupont on 10-10-2024 Platelet mean volume (Bld) [Entitic vol] 10.5 fL 6.2-12.0 [facility] Platelet countOrdered By: Vinh Lehman on 10-10-2024 Platelets (Bld) [#/Vol] 283 10*3/uL 150-450 [facility] Potassium measurementOrdered By: Tab Dupont on 10-10-2024 Potassium [Moles/Vol] 4.0 mmol/L 3.5-5.1 [facility] RBC Auto (Bld) [#/Vol]Ordere d By: Tab Dupont on 10-10-2024 RBC (Bld) [#/Vol] 4.49 10*6/uL Low 4.6-6.2 [facility] Serum anion gap measurementO rdered By: Tab Dupont on 10-10-2024 Anion gap [Moles/Vol] 7 mmol/L 5-15 [facility] Serum or plasma calcium randall urement (mass/volume)Ordered By: Tab Dupont on 10-10-2024 Calcium [Mass/Vol] 8.7 mg/dL 8.5-10.1 [facility] Serum or plasma creatinine m easurement (mass/volume)Ordered By: Tab Dupont on 10-10-2024 Creatinine [Mass/Vol] 0.56 mg/dL Low 0.70-1.30 [facility] Comment on above: The validity of the calculated GFR & GFRAA in patients over 70 years has not been determined. Clinical correlation is essential. Serum or plasma urea nitroge n measurement (mass/volume)Ordered By: Tab Dupont on 10-10-2024 Urea nitrogen [Mass/Vol] 11 mg/dL 7-18 [facility] Sodium levelOrdered By: Omar Dupont on 10-10-2024 Sodium [Moles/Vol] 139 mmol/L 136-145 [facility] White blood cell (WBC) count Ordered By: Tab Dupont on 10-10-2024 WBC (Bld) [#/Vol] 7.7 10*3/uL 4.4-11.0 [facility] Basic Metabolic Profile (BMP )on 10-03-2024 BUN/CRE 14.7 RATIO Normal 10-20 [facility] Comment on above: Order Comment: 301.2 0000 Performed By: #### L 501.6710, L101.9900, L501.8820 #### [facility] [address] [place], [address] CA,Total 8.7 mg/dL Normal 8.5-10.1 [facility] Comment on above: Order Comment: 301.2 0000 Performed By: #### L 501.6710, L101.9900, [id number] #### [facility] [address] [place], [address] Chloride [Moles/Vol] 109 mmol/L High 98-107 [facility] Comment on above: Order Comment: 301.2 0000 Performed By: #### L 501.6710, L101.9900, [id number] #### [facility] [address] [place], [address] CO2 [Moles/Vol] 24.0 mmol/L Normal 21.0-32.0 [facility] Comment on above: Order Comment: 301.2 0000 Performed By: #### L 501.6710, L101.9900, L501.8820 #### [facility] [address] [place], [address] Creatinine [Mass/Vol] 0.48 mg/dL Low 0.70-1.30 [facility] Comment on above: Order Comment: 301.2 0000 Result Comment: The validity of the calculated GFR GFRAA in patients over 70 years has not been determined. Clinical correlation is essential. Performed By: #### L 501.6710, L101.9900, L501.8820 #### [facility] [address] [place], [address] EST GFR - AA 229 mL/min Normal >60 [facility] Comment on above: Order Comment: 301.2 0000 Result Comment: Afri can [place] GFR Calc Performed By: #### L 501.6710, L101.9900, L501.8820 #### [facility] [address] [place], [address] GAP 5 Normal 5-15 [facility] Comment on above: Order Comment: 301.2 0000 Performed By: #### L 501.6710, L101.9900, L501.8820 #### [facility] [address] [place], [address] GFR/1.73 sq M.predicted among non-blacks MDRD (S/P/Bld) [Vol rate/Area] 189 mL/min/{1.73_m2} Normal >60 [facility] Comment on above: Order Comment: 301.2 0000 Result Comment: Non- GFR Calc Performed By: #### L 501.6710, L101.9900, L501.8820 #### [facility] [address] [place], [address] Glucose [Mass/Vol] 105 mg/dL Normal 74-106 [facility] Comment on above: Order Comment: 301.2 0000 Result Comment: Fast ing Glucose result from 100 to 125 mg/dL suggests IMPAIRED HOMEOSTASIS per A.D.A. criteria. Performed By: #### L 501.6710, L101.9900, L501.8820 #### [facility] [address] [place], [address] Potassium [Moles/Vol] 3.7 mmol/L Normal 3.5-5.1 [facility] Comment on above: Order Comment: 301.2 0000 Performed By: #### L 501.6710, L101.9900, L501.8820 #### [facility] [address] [place], [address] Sodium [Moles/Vol] 138 mmol/L Normal 136-145 [facility] Comment on above: Order Comment: 301.2 0000 Performed By: #### L 501.6710, L101.9900, [id number] #### [facility] [address] [place], [address] Urea nitrogen [Mass/Vol] 7 mg/dL Normal 7-18 [facility] Comment on above: Order Comment: 301.2 0000 Performed By: #### L 501.6710, L101.9900, L501.8820 #### [facility] [address] [place], [address] Blood urea nitrogen (BUN)/cr eatinine ratioOrdered By: Tab Dupont on 10-03-2024 Urea nitrogen/Creatinine [Mass ratio] 14.7 mg/mg 10- [facility] CBC-Complete Blood Cnt No Di ffon 10-03-2024 Erythrocyte distribution width (RBC) [Ratio] 14.0 % Normal 11.6-14.6 [facility] Comment on above: Order Comment: 301.2 0000 Performed By: #### L 501.6710, L101.9900, L501.8820 #### [facility] [address] [place], [address] Hematocrit (Bld) [Volume fraction] 38.4 % Low 40-54 [facility] Comment on above: Order Comment: 301.2 0000 Performed By: #### L 501.6710, L101.9900, [id number] #### [facility] [address] [place], [address] Hemoglobin (Bld) [Mass/Vol] 12.5 g/dL Low 13.0-16.5 [facility] Comment on above: Order Comment: 301.2 0000 Performed By: #### L 501.6710, L101.9900, L501.8820 #### [facility] [address] [place], [address] MCH (RBC) [Entitic mass] 30.3 pg Normal 27.0-32.0 [facility] Comment on above: Order Comment: 301.2 0000 Performed By: #### L 501.6710, L101.9900, L501.8820 #### [facility] [address] [place], [address] MCHC (RBC) [Mass/Vol] 32.6 g/dL Normal 32-36 [facility] Comment on above: Order Comment: 301.2 0000 Performed By: #### L 501.6710, L101.9900, L501.8820 #### [facility] [address] [place], [address] MCV (RBC) [Entitic vol] 93.0 fL Normal 80-94 [facility] Comment on above: Order Comment: 301.2 0000 Performed By: #### L 501.6710, L101.9900, [id number] #### [facility] [address] [place], [address] Platelet mean volume (Bld) [Entitic vol] 10.4 fL Normal 6.2-12.0 [facility] Comment on above: Order Comment: 301.2 0000 Performed By: #### L 501.6710, L101.9900, [id number] #### [facility] [address] [place], [address] Platelets (Bld) [#/Vol] 284 10*3/uL Normal 150-450 [facility] Comment on above: Order Comment: 301.2 0000 Performed By: #### L 501.6710, L101.9900, [id number] #### [facility] [address] [place], [address] RBC (Bld) [#/Vol] 4.13 10*6/uL Low 4.6-6.2 [facility] Comment on above: Order Comment: 301.2 0000 Performed By: #### L 501.6710, L101.9900, L501.8820 #### [facility] [address] [place], [address] RDW SD 48.5 fl High 35.1-43.9 [facility] Comment on above: Order Comment: 301.2 0000 Performed By: #### L 501.6710, L101.9900, [id number] #### [facility] [address] [place], [address] WBC (Bld) [#/Vol] 7.8 10*3/uL Normal 4.4-11.0 [facility] Comment on above: Order Comment: 301.2 0000 Performed By: #### L 501.6710, L101.9900, L501.8820 #### [facility] [address] [place], [address] Carbon dioxide measurementOr dered By: Tab Dupont on 10-03-2024 CO2 [Moles/Vol] 24.0 mmol/L 21.0-32.0 [facility] Chloride measurementOrdered By: Tab Dupont on 10-03-2024 Chloride [Moles/Vol] 109 mmol/L High 98-107 [facility] Erythrocyte distribution wid th ratioOrdered By: Tab Dupont on 10-03-2024 Erythrocyte distribution width (RBC) [Ratio] 14.0 % 11.6-14.6 [facility] Erythrocyte distribution wid th standard deviationOrdered By: Tab Dupotn on 10-03-2024 Erythrocyte distribution width (RBC) [Entitic vol] 48.5 fL High 35.1-43.9 [facility] Estimated glomerular filtrat ion rate (GFR) AmericanOrdered By: Tab Dupont on 10-03-2024 Estimated GFR (MDRD) Amer 229 mL/min >60 [facility] Comment on above: GFR Calc Glomerular filtration rate ( GFR) estimationOrdered By: Tab Dupont on 10-03-2024 Estimated GFR (MDRD) Non-Af Amer 189 mL/min >60 [facility] Comment on above: Non- GFR Calc Glucose measurementOrdered B y: Tab Dupont on 10-03-2024 Glucose [Mass/Vol] 105 mg/dL 74-106 [facility] Comment on above: Fasting Glucose resu lt from 100 to 125 mg/dL suggests IMPAIRED HOMEOSTASIS per A.D.A. criteria. Hematocrit Auto (Bld) [Volum e fraction]Ordered By: Tab Dupont on 10-03-2024 Hematocrit (Bld) [Volume fraction] 38.4 % Low 40-54 [facility] Hemoglobin measurementOrdere d By: Tab Dupont on 10-03-2024 Hemoglobin (Bld) [Mass/Vol] 12.5 g/dL Low 13.0-16.5 [facility] MCV (mean corpuscular volume ) determinationOrdered By: Tab Dupont on 10-03-2024 MCV (RBC) [Entitic vol] 93.0 fL 80-94 [facility] Mean corpuscular hemoglobin (MCH) determinationOrdered By: Tab Dupont on 10-03-2024 MCH (RBC) [Entitic mass] 30.3 pg 27.0-32.0 [facility] Mean corpuscular hemoglobin concentration (MCHC) determinationOrdered By: Tab Dupont on 10-03-2024 MCHC (RBC) [Mass/Vol] 32.6 g/dL 32-36 [facility] Mean platelet volume determi nationOrdered By: Tab Dupont on 10-03-2024 Platelet mean volume (Bld) [Entitic vol] 10.4 fL 6.2-12.0 [facility] Platelet countOrdered By: Vinh Lehman on 10-03-2024 Platelets (Bld) [#/Vol] 284 10*3/uL 150-450 [facility] Potassium measurementOrdered By: Tab Dupont on 10-03-2024 Potassium [Moles/Vol] 3.7 mmol/L 3.5-5.1 [facility] RBC Auto (Bld) [#/Vol]Ordere d By: Tab Dupont on 10-03-2024 RBC (Bld) [#/Vol] 4.13 10*6/uL Low 4.6-6.2 [facility] Serum anion gap measurementO rdered By: Tab Dupont on 10-03-2024 Anion gap [Moles/Vol] 5 mmol/L 5-15 [facility] Serum or plasma calcium randall urement (mass/volume)Ordered By: Tab Dupont on 10-03-2024 Calcium [Mass/Vol] 8.7 mg/dL 8.5-10.1 [facility] Serum or plasma creatinine m easurement (mass/volume)Ordered By: Tab Dupont on 10-03-2024 Creatinine [Mass/Vol] 0.48 mg/dL Low 0.70-1.30 [facility] Comment on above: The validity of the calculated GFR & GFRAA in patients over 70 years has not been determined. Clinical correlation is essential. Serum or plasma urea nitroge n measurement (mass/volume)Ordered By: Tab Dupont on 10-03-2024 Urea nitrogen [Mass/Vol] 7 mg/dL 7-18 [facility] Sodium levelOrdered By: Omar Dupont on 10-03-2024 Sodium [Moles/Vol] 138 mmol/L 136-145 [facility] White blood cell (WBC) count Ordered By: Tab Dupont on 10-03-2024 WBC (Bld) [#/Vol] 7.8 10*3/uL 4.4-11.0 [facility] Patient Instructionson 09-30 [employer] Authentication Interface Message Text Completed UDS. Inserted 18Fr 10cc santana Call to schedule appt with Urology Dr Jorge Grimm MD (Surgeon) [address] [place] [address] [place] [address] scan given recurrent blood [...] burning on urination, call the office at [phone] Thursday through Thursday 8:00 AM to 4:30 PM. For emergencies, go the Emergency Room. If you do not already have a follow up appointment scheduled with your physician, call the office at [phone] to schedule one. Normal [facility] Progress Noteson 09-30-2024 [employer] Authentication Interface Message Text SPINAL CORD INJURY [...] p (more content not included)... Normal [facility] C-reactive protein measureme nt by high sensitivity methodOrdered By: Tab Dupont on 09-29-2024 C-Reactive Protein Extended Range 38.30 mg/L High 0.0-3.0 [facility] Comment on above: C-Reactive Protein ( CRP) provides useful information for thediagnosis, therapy and monitoring of inflammatory processesand associated diseases. For the evaluation of Relative Riskfor Cardiovascular Disease, a High Sensitivity CRP (HSCRP)should be ordered. CBC-Complete Blood Cnt No Di ffon 09-29-2024 Erythrocyte distribution width (RBC) [Ratio] 14.4 % Normal 11.6-14.6 [facility] Comment on above: Order Comment: 301.2 Performed By: #### L 101.9900, L100.0500, L500.4050, L501.6710 #### [facility] [address] [place], [address] Hematocrit (Bld) [Volume fraction] 40.3 % Normal 40-54 [facility] Comment on above: Order Comment: 301.2 Performed By: #### L 101.9900, L100.0500, L500.4050, L501.6710 #### [facility] [address] [place], [address] Hemoglobin (Bld) [Mass/Vol] 13.3 g/dL Normal 13.0-16.5 [facility] Comment on above: Order Comment: 301.2 Performed By: #### L 101.9900, L100.0500, L500.4050, L501.6710 #### [facility] [address] [place], [address] MCH (RBC) [Entitic mass] 31.4 pg Normal 27.0-32.0 [facility] Comment on above: Order Comment: 301.2 Performed By: #### L 101.9900, L100.0500, L500.4050, L501.6710 #### [facility] [address] [place], [address] MCHC (RBC) [Mass/Vol] 33.0 g/dL Normal 32-36 [facility] Comment on above: Order Comment: 301.2 Performed By: #### L 101.9900, L100.0500, L500.4050, L501.6710 #### [facility] [address] [place], [address] MCV (RBC) [Entitic vol] 95.0 fL High 80-94 [facility] Comment on above: Order Comment: 301.2 Performed By: #### L 101.9900, L100.0500, L500.4050, L501.6710 #### [facility] [address] [place], [address] Platelet mean volume (Bld) [Entitic vol] 10.6 fL Normal 6.2-12.0 [facility] Comment on above: Order Comment: 301.2 Performed By: #### L 101.9900, L100.0500, L500.4050, L501.6710 #### [facility] [address] [place], [address] Platelets (Bld) [#/Vol] 270 10*3/uL Normal 150-450 [facility] Comment on above: Order Comment: 301.2 Performed By: #### L 101.9900, L100.0500, L500.4050, L501.6710 #### [facility] [address] [place], [address] RBC (Bld) [#/Vol] 4.24 10*6/uL Low 4.6-6.2 [facility] Comment on above: Order Comment: 301.2 Performed By: #### L 101.9900, L100.0500, L500.4050, L501.6710 #### [facility] [address] [place], [address] RDW SD 50.0 fl High 35.1-43.9 [facility] Comment on above: Order Comment: 301.2 Performed By: #### L 101.9900, L100.0500, L500.4050, L501.6710 #### [facility] [address] [place], [address] WBC (Bld) [#/Vol] 8.7 10*3/uL Normal 4.4-11.0 [facility] Comment on above: Order Comment: 301.2 Performed By: #### L 101.9900, L100.0500, L500.4050, L501.6710 #### [facility] [address] [place], [address] CRPon 09-29-2024 C-REACTIVE PROT 38.30 mg/L High 0.0-3.0 [facility] Comment on above: Order Comment: 301.2 Result Comment: C-Re active Protein (CRP) provides useful information for the diagnosis, therapy and monitoring of inflammatory processes and associated diseases. For the evaluation of Relative Risk for Cardiovascular Disease, a High Sensitivity CRP (HSCRP) should be ordered. Performed By: #### L 101.9900, L100.0500, L500.4050, L501.6710 #### [facility] [address] [place], [address] Erythrocyte Sed Rateon 09-29 SED RATE 47 mm/hr High 0-20 [facility] Comment on above: Order Comment: 301.2 Performed By: #### L 101.9900, L100.0500, L500.4050, L501.6710 #### [facility] [address] [place], [address] Erythrocyte distribution wid th ratioOrdered By: Tab Dupont on 09-29-2024 Erythrocyte distribution width (RBC) [Ratio] 14.4 % 11.6-14.6 [facility] Erythrocyte distribution wid th standard deviationOrdered By: Tab Dupont on 09-29-2024 Erythrocyte distribution width (RBC) [Entitic vol] 50.0 fL High 35.1-43.9 [facility] Erythrocyte sedimentation ra teOrdered By: Tab Dupont on 09-29-2024 ESR (Bld) [Velocity] 47 mm/h High 0-20 [facility] Hematocrit Auto (Bld) [Volum e fraction]Ordered By: Tab Dupont on 09-29-2024 Hematocrit (Bld) [Volume fraction] 40.3 % 40-54 [facility] Hemoglobin measurementOrdere d By: Tab Dupont on 09-29-2024 Hemoglobin (Bld) [Mass/Vol] 13.3 g/dL 13.0-16.5 [facility] MCV (mean corpuscular volume ) determinationOrdered By: Tab Dupont on 09-29-2024 MCV (RBC) [Entitic vol] 95.0 fL High 80-94 [facility] Mean corpuscular hemoglobin (MCH) determinationOrdered By: Tab Dupont on 09-29-2024 MCH (RBC) [Entitic mass] 31.4 pg 27.0-32.0 [facility] Mean corpuscular hemoglobin concentration (MCHC) determinationOrdered By: Tab Dupont on 09-29-2024 MCHC (RBC) [Mass/Vol] 33.0 g/dL 32-36 [facility] Mean platelet volume determi nationOrdered By: Tab Dupont on 09-29-2024 Platelet mean volume (Bld) [Entitic vol] 10.6 fL 6.2-12.0 [facility] Platelet countOrdered By: Vinh Lehman on 09-29-2024 Platelets (Bld) [#/Vol] 270 10*3/uL 150-450 [facility] RBC Auto (Bld) [#/Vol]Ordere d By: Tab Dupont on 09-29-2024 RBC (Bld) [#/Vol] 4.24 10*6/uL Low 4.6-6.2 [facility] White blood cell (WBC) count Ordered By: Tab Dupont on 09-29-2024 WBC (Bld) [#/Vol] 8.7 10*3/uL 4.4-11.0 [facility] Basic Metabolic Profile (BMP )on 09-20-2024 BUN/CRE 26.4 RATIO High 10-20 [facility] Comment on above: Order Comment: 301.2 0000 Performed By: #### L 501.6710, L101.9900, L501.8820 #### [facility] [address] [place], [address] CA,Total 8.2 mg/dL Low 8.5-10.1 [facility] Comment on above: Order Comment: 301.2 0000 Performed By: #### L 501.6710, L101.9900, L501.8820 #### [facility] [address] [place], [address] Chloride [Moles/Vol] 107 mmol/L Normal 98-107 [facility] Comment on above: Order Comment: 301.2 0000 Performed By: #### L 501.6710, L101.9900, L501.8820 #### [facility] [address] [place], [address] CO2 [Moles/Vol] 24.0 mmol/L Normal 21.0-32.0 [facility] Comment on above: Order Comment: 301.2 0000 Performed By: #### L 501.6710, L101.9900, L501.8820 #### [facility] [address] [place], [address] Creatinine [Mass/Vol] 0.61 mg/dL Low 0.70-1.30 [facility] Comment on above: Order Comment: 301.2 0000 Result Comment: The validity of the calculated GFR GFRAA in patients over 70 years has not been determined. Clinical correlation is essential. Performed By: #### L 501.6710, L101.9900, L501.8820 #### [facility] [address] [place], [address] EST GFR - AA 173 mL/min Normal >60 [facility] Comment on above: Order Comment: 301.2 0000 Result Comment: Afri can Citizen Of [place] GFR Calc Performed By: #### L 501.6710, L101.9900, L501.8820 #### [facility] [address] [place], [address] GAP 6 Normal 5-15 [facility] Comment on above: Order Comment: 301.2 0000 Performed By: #### L 501.6710, L101.9900, L501.8820 #### [facility] [address] [place], [address] GFR/1.73 sq M.predicted among non-blacks MDRD (S/P/Bld) [Vol rate/Area] 143 mL/min/{1.73_m2} Normal >60 [facility] Comment on above: Order Comment: 301.2 0000 Result Comment: Non- GFR Calc Performed By: #### L 501.6710, L101.9900, L501.8820 #### [facility] [address] [place], [address] Glucose [Mass/Vol] 134 mg/dL High 74-106 [facility] Comment on above: Order Comment: 301.2 0000 Result Comment: Fast ing Glucose result greater than or equal to 126 mg/dL suggests DIABETES MELLITUS per A.D.A. criteria. Performed By: #### L 501.6710, L101.9900, L501.8820 #### [facility] [address] [place], [address] Potassium [Moles/Vol] 3.3 mmol/L Low 3.5-5.1 [facility] Comment on above: Order Comment: 301.2 0000 Performed By: #### L 501.6710, L101.9900, L501.8820 #### [facility] [address] [place], [address] Sodium [Moles/Vol] 137 mmol/L Normal 136-145 [facility] Comment on above: Order Comment: 301.2 0000 Performed By: #### L 501.6710, L101.9900, L501.8820 #### [facility] [address] [place], [address] Urea nitrogen [Mass/Vol] 16 mg/dL Normal 7-18 [facility] Comment on above: Order Comment: 301.2 0000 Performed By: #### L 501.6710, L101.9900, L501.8820 #### [facility] [address] [place], [place], [address] Blood urea nitrogen (BUN)/cr eatinine ratioOrdered By: Tab Dupont on 09-20-2024 Urea nitrogen/Creatinine [Mass ratio] 26.4 mg/mg High 10-20 [facility] Carbon dioxide measurementOr dered By: Tab Dupont on 09-20-2024 CO2 [Moles/Vol] 24.0 mmol/L 21.0-32.0 [facility] Chloride measurementOrdered By: Tab Dupont on 09-20-2024 Chloride [Moles/Vol] 107 mmol/L 98-107 [facility] Estimated glomerular filtrat ion rate (GFR) AmericanOrdered By: Tab Dupont on 09-20-2024 Estimated GFR (MDRD) Amer 173 mL/min >60 [facility] Comment on above: GFR Calc Glomerular filtration rate ( GFR) estimationOrdered By: Tab Dupont on 09-20-2024 Estimated GFR (MDRD) Non-Af Amer 143 mL/min >60 [facility] Comment on above: Non- GFR Calc Glucose measurementOrdered B y: Tab Dupont on 09-20-2024 Glucose [Mass/Vol] 134 mg/dL High 74-106 [facility] Comment on above: Fasting Glucose resu lt greater than or equal to 126 mg/dL suggests DIABETES MELLITUS per A.D.A. criteria. Potassium measurementOrdered By: Tab Dupont on 09-20-2024 Potassium [Moles/Vol] 3.3 mmol/L Low 3.5-5.1 [facility] Serum anion gap measurementO rdered By: Tab Dupont on 09-20-2024 Anion gap [Moles/Vol] 6 mmol/L 5-15 [facility] Serum or plasma calcium randall urement (mass/volume)Ordered By: Tab Dupont on 09-20-2024 Calcium [Mass/Vol] 8.2 mg/dL Low 8.5-10.1 [facility] Serum or plasma creatinine m easurement (mass/volume)Ordered By: Tab Dupont on 09-20-2024 Creatinine [Mass/Vol] 0.61 mg/dL Low 0.70-1.30 [facility] Comment on above: The validity of the calculated GFR & GFRAA in patients over 70 years has not been determined. Clinical correlation is essential. Serum or plasma urea nitroge n measurement (mass/volume)Ordered By: Tab Dupont on 09-20-2024 Urea nitrogen [Mass/Vol] 16 mg/dL - [facility] Sodium levelOrdered By: Omar Dupont on 09-20-2024 Sodium [Moles/Vol] 137 mmol/L 136-145 [facility] Progress Noteson 08-22-2024 Porcelain Technician Authentication Interface Message Text Rheumatology New visit [...] Resource Strain: Low Risk (04/24/2023) Received from [facility] Overall Financial Resource Strain (CARDIA) Difficulty of Paying Living Expenses: Not hard at all Food Insecurity: No Food Insecurity (05/18/2024) Received from [facility] Hunger Vital Sign Worried About Running Out of Food in the Last Year: Never true Ran Out of Food in the Last Year: Never true Transportation Needs: No Transportation Needs (05/18/2024) Received from [facility] PRAPARE - Transportation Lack of Transportation (Medical): No Lack of Transportation (Non-Medical): No Intimate Partner Violence: Not At Risk (05/18/2024) [facility] Humiliation, Afraid, Rape, and Kick questionnaire Fear [...] - (more content not included)... Normal [facility] Telephone Encounteron 2023 Porcelain Technician Beamingation Interface Message Text Spoke with [facility] where pt resides and given the date and time of DATA MANAGEMENT CONSULTANT video visit with Dr. Shultz at 8:20 am on 08/22/24. This information will be relayed to pt. Normal [facility] Addendum Noteon 08-01-2024 Porcelain Technician Beamingation Interface Message Text Addended by: FAISAL SIMEON on: 08/01/2024 02:57 PM Modules accepted: Level of Service Normal [facility] Patient Instructionson 08-01 Porcelain Technician Authentication Interface Message Text -Continue PT/OT -Please follow your appoitment with pain team and rheumatology -You are scheduled for bladder study on 09/30/24 -continue scheduled bowel care daily Normal [facility] Progress Noteson 07-31-2024 Porcelain Technician Authentication Interface Message Text Documentation: Mode: Video [...] following spinal surgery ~2 yrs ago in [place] . In 2019, pt had his first back surgery performed by [facility] which was an interbody fusion. 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 At that point, the hospital took the hardware out and did not replace it with the goal of treating the infection. 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 After the infection was treated, [facility] extended his fusion, decompressed the back, and replaced all hardware. At that time he lost all motor and sensation to his lower extremities. He was independent uptill december 2021 till his last spine surgery two year ago.Since 2021 he is in [facility] and [facility] so far. Currently SN[facility] in [facility]. Last seen on 06/13/24 in clinic and recommendations was: -Continue PT/OT -Bowel care: schedule bowel care once/day (either after breakfast or dinner) - using suppository and manual stimulation over commode chair will be more helpful than over bed . - Continue skin care - Follow [facility] service consult( we requested today ) [...] healing- being followed with wound care at [facility]. 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 DME: Power wheelchair, manual wheelchair [...] sev (more content not included)... Normal [facility] MR C-SPINE W/Oon 07-11-2024 MR C-SPINE [...] the right cerebellum. 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 MACRO: None [facility] MR T-SPINE W/Oon 07-11-2024 MR T-SPINE W/O [...] T5 and T2. MACRO: None Normal [facility] MR Thoracic spine WO mireille ton 07-11-2024 EXAMINATION: MR T-SPINE W/O 07/10/2024 [...] of T11, T5 and T2. MACRO: None [facility] MR Thoracic spine WO contras tOrdered By: Del Leslie on 07-11-2024 [facility] Work Phone: No Panel Informationon 07-10 Radiology Study observation (narrative) [facility] BD BONE DENSITY SURVEYon BD BONE DENSITY SURVEY EXAMINATION: B ONE DENSITY SURVEY 07/01/2024 11:31 AM CLINICAL HISTORY: sacral insufficiency ASSOCIATED DIAGNOSIS: Sacral insufficiency fracture, initial encounter ADDITIONAL CLINICAL INFORMATION:Indicatio ns: History of Fracture (Adult) TREATMENTS: ORDERING PROVIDER: OTIS MEJIA TECHNOLOGISTS NOTE: TECHNIQUE: Quantitative digital radiography for DEXA bone mineral assessment was performed using the [employer] densitometer. Following are the results for your [...] online (www.shef.ac.uk/FRAX via a link on the [employer] screen. The model calculates the 10-yr probability of hip fracture or any major osteoporotic fracture (vertebral, hip, forearm, or humerus fracture), using clinical populations, and applies only to previously-untreated patients. (FRAX-friendly) T-scores, as calculated using the [employer] link, should be used in the model. [...] the expected range for age. Normal [facility] 36on 06-16-2024 36 Scheduled appointment Normal [facility] 36 Doug is calling in again wanting to rescheduled they can be reached at the office anytime before 3pm. Please advise and thank you Normal [facility] Addendum Noteon 06-16-2024 Porcelain Technician Authentication Interface Message Text Addended by: FAISAL SIMEON on: 06/16/2024 09:13 PM Modules accepted: Level of Service Normal [facility] 36on 06-15-2024 36 LM for Doug to call the office to discuss the pt Normal [facility] 36 Name of caller: Dax banks Contact phone number: [phone] Relationship to Patient: sanctuary Provider: chepe Practice: pain management Chief Complaint/Reason for Call: doug is calling in wanting to speak to the main office. Please advise and thank you Best time of day caller can be reached: any Patient advised that office/PCP has 24-48 business hours to return their call: Yes [facility] Telephone Encounteron 2023 Porcelain Technician Authentication Interface Message Text RTC to pt, left voice mail. Vladimir Borden [facility] Rim Roller Setter [phone] [facility] Patient Instructionson 06-13 Porcelain Technician Authentication Interface Message Text -Continue PT/OT -Bowel care: schedule bowel care once/day (either after breakfast or dinner) - using suppository and manual stimulation over commode chair will be more helpful than over bed . - Continue skin care - Follow [facility] service consult( we requested today ) for benefits eligibility - Bladder: We ordered today Urodynamic study for your bladder evaluation (to see your bladder status post spinal cord injury) Normal [facility] Progress Noteson 06-13-2024 Porcelain Technician Authentication Interface Message Text Patient was identified by name and date of . Evelio Grey Normal [facility] Progress Noteson 06-12-2024 Porcelain Technician Authentication Interface Message Text SPINAL CORD INJURY [...] following spinal surgery ~2 yrs ago in [place] . In 2019, pt had his first back surgery performed by [facility] which was an interbody fusion. 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 At that point, the hospital took the hardware out and did not replace it with the goal of treating the infection. 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 After the infection was treated, [facility] extended his fusion, decompressed the back, and replaced all hardware. At that time he lost all motor and sensation to his lower extremities. He was independent uptill december 2021 till his last spine surgery two year ago Patient was accompanied by brother . The patient gave permission to discuss their medical information, including PHI, in their presence. Since 2021 he is in [facility] and [facility] so far. Currently SNF in [facility]. 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 DME: Power wheelchair, manual wheelchair [...] 01/23/2022 (more content not included)... Normal [facility] Bacteria identified Cx Nom ( Bld)on 05-22-2024 Interpretation and review of laboratory results Normal [facility] Blood Collection Site: Left Arm [facility] Blood Collection Site: Left Antecubital [facility] CBC panel Auto (Bld)on 05-22 Erythrocyte distribution width (RBC) [Ratio] 15.1 % High 11.5 - 15.0 % [facility] Hematocrit (Bld) [Volume fraction] 38.4 % Low 40.0 - 52.0 % [facility] Hemoglobin (Bld) [Mass/Vol] 12.8 g/dL Low 13.0 - 18.0 g/dL [facility] Interpretation and review of laboratory results Abnormal [facility] MCH (RBC) [Entitic mass] 30.4 pg 26. 0 - 34.0 pg [facility] MCHC (RBC) [Mass/Vol] 33.3 % 30.5 - 36.0 % [facility] MCV (RBC) [Entitic vol] 91.2 fL 77.0 - 99.0 fL [facility] Platelet mean volume (Bld) [Entitic vol] 10.6 fL 9.0 - 12.7 fL [facility] Platelets (Bld) [#/Vol] 209 10*3/uL 140 - 440 10*3/uL [facility] RBC (Bld) [#/Vol] 4.21 10*6/uL Low 4.40 - 5.9 0 10*6/uL [facility] WBC (Bld) [#/Vol] 6.4 10*3/uL 3.6 - 10.7 10*3/uL [facility] Comprehensive metabolic 1998 panelon 05-22-2024 Albumin [Mass/Vol] 3.1 g/dL Low 3.5 - 5.0 g/dL [facility] ALP [Catalytic activity/Vol] 151 U/L High 38 - 126 U/L [facility] ALT [Catalytic activity/Vol] 22 U/L 0 - 49 U/L [facility] Anion gap [Moles/Vol] 5 mmol/L 3 - 13 mmol/L [facility] AST [Catalytic activity/Vol] 25 U/L 15 - 46 U/L [facility] Bilirubin [Mass/Vol] 0.6 mg/dL 0.2 - 1 .3 mg/dL [facility] Calcium [Mass/Vol] 8.4 mg/dL 8.4 - 10. 4 mg/dL [facility] Chloride [Moles/Vol] 107 mmol/L 98 - 10 7 mmol/L [facility] CO2 [Moles/Vol] 22 mmol/L 22 - 30 mmol/L [facility] Creatinine [Mass/Vol] 0.54 mg/dL Low 0.66 - 1.25 mg/dL [facility] GFR/1.73 sq M.predicted (S/P/Bld) [Vol rate/Area] - PINF [facility] Comment on above: Calculation based on the Chronic Kidney Disease Epidemiology Collaboration (CKD-EPI) equation refit without adjustment for race Glucose [Mass/Vol] 144 mg/dL High 70 - 100 mg/dL [facility] Interpretation and review of laboratory results Abnormal [facility] Potassium [Moles/Vol] 3.9 mmol/L 3.5 - 5.1 mmol/L [facility] Protein [Mass/Vol] 6.3 g/dL 6.3 - 8.2 g/dL [facility] Sodium [Moles/Vol] 135 mmol/L 135 - 145 mmol/L [facility] Urea nitrogen [Mass/Vol] 13 mg/dL 9 - 20 mg/dL [facility] Laboratory - Chemistry and C hemistry - challengeon 05-22-2024 Glucose [Mass/Vol] 177 mg/dL High 70 - 100 mg/dL [facility] Glucose [Mass/Vol] 325 mg/dL High 70 - 100 mg/dL [facility] Glucose [Mass/Vol] 133 mg/dL High 70 - 100 mg/dL [facility] Laboratory - Microbiology an d Antimicrobial susceptibilityon 05-22-2024 Bacteria identified Cx Nom (Bld) No growth at 5 days [facility] No Panel Informationon 05-22 Interpretation and review of laboratory results Abnormal [facility] Performed by: [facility], [address] [place] [address] CLIA ID: [id number] [facility] Interpretation and review of laboratory results Abnormal [facility] Performed by: [facility], [address] [place] [address] CLIA ID: [id number] [facility] Interpretation and review of laboratory results Abnormal [facility] Performed by: [facility], [address] [place] [address] CLIA ID: [id number] [facility] CBC panel Auto (Bld)on 05-21 Erythrocyte distribution width (RBC) [Ratio] 15.0 % 11.5 - 15.0 % [facility] Hematocrit (Bld) [Volume fraction] 37.5 % Low 40.0 - 52.0 % [facility] Hemoglobin (Bld) [Mass/Vol] 12.4 g/dL Low 13.0 - 18.0 g/dL [facility] Interpretation and review of laboratory results Abnormal [facility] MCH (RBC) [Entitic mass] 30.7 pg 26. 0 - 34.0 pg [facility] MCHC (RBC) [Mass/Vol] 33.1 % 30.5 - 36.0 % [facility] MCV (RBC) [Entitic vol] 92.8 fL 77.0 - 99.0 fL [facility] Platelet mean volume (Bld) [Entitic vol] 10.4 fL 9.0 - 12.7 fL [facility] Platelets (Bld) [#/Vol] 192 10*3/uL 140 - 440 10*3/uL [facility] RBC (Bld) [#/Vol] 4.04 10*6/uL Low 4.40 - 5.9 0 10*6/uL [facility] WBC (Bld) [#/Vol] 5.8 10*3/uL 3.6 - 10.7 10*3/uL [facility] Comprehensive metabolic 1998 panelon 05-21-2024 Albumin [Mass/Vol] 3.2 g/dL Low 3.5 - 5.0 g/dL [facility] ALP [Catalytic activity/Vol] 142 U/L High 38 - 126 U/L [facility] ALT [Catalytic activity/Vol] 21 U/L 0 - 49 U/L [facility] Anion gap [Moles/Vol] 8 mmol/L 3 - 13 mmol/L [facility] AST [Catalytic activity/Vol] 24 U/L 15 - 46 U/L [facility] Bilirubin [Mass/Vol] 0.5 mg/dL 0.2 - 1 .3 mg/dL [facility] Calcium [Mass/Vol] 8.5 mg/dL 8.4 - 10. 4 mg/dL [facility] Chloride [Moles/Vol] 109 mmol/L High 98 - 10 7 mmol/L [facility] CO2 [Moles/Vol] 18 mmol/L Low 22 - 30 mmol/L [facility] Creatinine [Mass/Vol] 0.46 mg/dL Low 0.66 - 1.25 mg/dL [facility] GFR/1.73 sq M.predicted (S/P/Bld) [Vol rate/Area] - PINF [facility] Comment on above: Calculation based on the Chronic Kidney Disease Epidemiology Collaboration (CKD-EPI) equation refit without adjustment for race Glucose [Mass/Vol] 157 mg/dL High 70 - 100 mg/dL [facility] Interpretation and review of laboratory results Abnormal [facility] Potassium [Moles/Vol] 3.9 mmol/L 3.5 - 5.1 mmol/L [facility] Protein [Mass/Vol] 6.2 g/dL Low 6.3 - 8.2 g/dL [facility] Sodium [Moles/Vol] 136 mmol/L 135 - 145 mmol/L [facility] Urea nitrogen [Mass/Vol] 11 mg/dL 9 - 20 mg/dL [facility] - Chemistry and C hemistry - challengeon 05-21-2024 Glucose [Mass/Vol] 261 mg/dL High 70 - 100 mg/dL [facility] Glucose [Mass/Vol] 231 mg/dL High 70 - 100 mg/dL [facility] Glucose [Mass/Vol] 162 mg/dL High 70 - 100 mg/dL [facility] Glucose [Mass/Vol] 154 mg/dL High 70 - 100 mg/dL [facility] No Panel Informationon 05-21 Interpretation and review of laboratory results Abnormal [facility] Performed by: [facility], [address] [place] [id number] CLIA ID: [id number] [facility] Interpretation and review of laboratory results Abnormal [facility] Performed by: [facility], [address] [place] [id number] CLIA ID: [id number] [facility] Interpretation and review of laboratory results Abnormal [facility] Performed by: [facility], [address] [place] [id number] CLIA ID: [id number] [facility] Interpretation and review of laboratory results Abnormal [facility] Performed by: [facility], [address] [place] [address] CLIA ID: [id number] [facility] Bacteria identified Cx Nom ( U)Ordered By: Codie Tang on 05-20-2024 Interpretation and review of laboratory results Abnormal [facility] Bacteria identified Cx Nom ( U)on 05-20-2024 Interpretation and review of laboratory results Abnormal [facility] CBC panel Auto (Bld)on 05-20 Erythrocyte distribution width (RBC) [Ratio] 15.1 % High 11.5 - 15.0 % [facility] Hematocrit (Bld) [Volume fraction] 37.0 % Low 40.0 - 52.0 % [facility] Hemoglobin (Bld) [Mass/Vol] 12.2 g/dL Low 13.0 - 18.0 g/dL [facility] Interpretation and review of laboratory results Abnormal [facility] MCH (RBC) [Entitic mass] 29.9 pg 26. 0 - 34.0 pg [facility] MCHC (RBC) [Mass/Vol] 33.0 % 30.5 - 36.0 % [facility] MCV (RBC) [Entitic vol] 90.7 fL 77.0 - 99.0 fL [facility] Platelet mean volume (Bld) [Entitic vol] 10.4 fL 9.0 - 12.7 fL [facility] Platelets (Bld) [#/Vol] 197 10*3/uL 140 - 440 10*3/uL [facility] RBC (Bld) [#/Vol] 4.08 10*6/uL Low 4.40 - 5.9 0 10*6/uL [facility] WBC (Bld) [#/Vol] 5.5 10*3/uL 3.6 - 10.7 10*3/uL [facility] Comprehensive metabolic 1998 panelon 05-20-2024 Albumin [Mass/Vol] 3.2 g/dL Low 3.5 - 5.0 g/dL [facility] ALP [Catalytic activity/Vol] 153 U/L High 38 - 126 U/L [facility] ALT [Catalytic activity/Vol] 22 U/L 0 - 49 U/L [facility] Anion gap [Moles/Vol] 4 mmol/L 3 - 13 mmol/L [facility] AST [Catalytic activity/Vol] 23 U/L 15 - 46 U/L [facility] Bilirubin [Mass/Vol] 0.6 mg/dL 0.2 - 1 .3 mg/dL [facility] Calcium [Mass/Vol] 8.5 mg/dL 8.4 - 10. 4 mg/dL [facility] Chloride [Moles/Vol] 109 mmol/L High 98 - 10 7 mmol/L [facility] CO2 [Moles/Vol] 21 mmol/L Low 22 - 30 mmol/L [facility] Creatinine [Mass/Vol] 0.50 mg/dL Low 0.66 - 1.25 mg/dL [facility] GFR/1.73 sq M.predicted (S/P/Bld) [Vol rate/Area] - PINF [facility] Comment on above: Calculation based on the Chronic Kidney Disease Epidemiology Collaboration (CKD-EPI) equation refit without adjustment for race Glucose [Mass/Vol] 207 mg/dL High 70 - 100 mg/dL [facility] Interpretation and review of laboratory results Abnormal [facility] Potassium [Moles/Vol] 4.0 mmol/L 3.5 - 5.1 mmol/L [facility] Protein [Mass/Vol] 6.4 g/dL 6.3 - 8.2 g/dL [facility] Sodium [Moles/Vol] 134 mmol/L Low 135 - 145 mmol/L [facility] Urea nitrogen [Mass/Vol] 10 mg/dL 9 - 20 mg/dL [facility] Laboratory - Chemistry and C hemistry - challengeon 05-20-2024 Glucose [Mass/Vol] 233 mg/dL High 70 - 100 mg/dL [facility] Glucose [Mass/Vol] 315 mg/dL High 70 - 100 mg/dL [facility] Glucose [Mass/Vol] 255 mg/dL High 70 - 100 mg/dL [facility] Glucose [Mass/Vol] 275 mg/dL High 70 - 100 mg/dL [facility] Laboratory - Microbiology an d Antimicrobial susceptibilityOrdered By: Codie Tang on 05-20-2024 Bacteria identified Cx Nom (U) >100,000 CFU/mL Proteus mirabilis Abnormal [facility] Comment on above: For identification a nd/or sensitivity, refer to culture collected on: 05/18/2024 at 0016 (24[facility]-[id number]). Laboratory - Microbiology an d Antimicrobial susceptibilityon 05-20-2024 Bacteria identified Cx Nom (U) >100,000 CFU/mL Proteus mirabilis Abnormal [facility] Comment on above: This phenotype is singh ggestive of an ESBL-producing organism. Treatment with beta-lactam antibiotics other than carbapenems may not be effective. No Panel Informationon 05-20 Interpretation and review of laboratory results Abnormal [facility] Performed by: [facility], [address] [place] [address] CLIA ID: [id number] [facility] Interpretation and review of laboratory results Abnormal [facility] Performed by: [facility] [place] [facility], [address] [place] [address] CLIA ID: [id number] [facility] Interpretation and review of laboratory results Abnormal [facility] Performed by: [facility], [address] [place] [address] CLIA ID: [id number] [facility] Interpretation and review of laboratory results Abnormal [facility] Performed by: [facility], [address] [place] [address] CLIA ID: [id number] [facility] CBC panel Auto (Bld)on 05-19 Erythrocyte distribution width (RBC) [Ratio] 14.9 % 11.5 - 15.0 % [facility] Hematocrit (Bld) [Volume fraction] 35.8 % Low 40.0 - 52.0 % [facility] Hemoglobin (Bld) [Mass/Vol] 12.0 g/dL Low 13.0 - 18.0 g/dL [facility] Interpretation and review of laboratory results Abnormal [facility] MCH (RBC) [Entitic mass] 30.3 pg 26. 0 - 34.0 pg [facility] MCHC (RBC) [Mass/Vol] 33.5 % 30.5 - 36.0 % [facility] MCV (RBC) [Entitic vol] 90.4 fL 77.0 - 99.0 fL [facility] Platelet mean volume (Bld) [Entitic vol] 10.6 fL 9.0 - 12.7 fL [facility] Platelets (Bld) [#/Vol] 212 10*3/uL 140 - 440 10*3/uL [facility] RBC (Bld) [#/Vol] 3.96 10*6/uL Low 4.40 - 5.9 0 10*6/uL [facility] WBC (Bld) [#/Vol] 5.4 10*3/uL 3.6 - 10.7 10*3/uL [facility] Comprehensive metabolic 1998 panelOrdered By: Harman Dempsey on 05-19-2024 Albumin [Mass/Vol] 3.1 g/dL Low 3.5 - 5.0 g/dL [facility] ALP [Catalytic activity/Vol] 155 U/L High 38 - 126 U/L [facility] ALT [Catalytic activity/Vol] 19 U/L 0 - 49 U/L [facility] Anion gap [Moles/Vol] 3 mmol/L 3 - 13 mmol/L [facility] AST [Catalytic activity/Vol] 29 U/L 15 - 46 U/L [facility] Bilirubin [Mass/Vol] 0.6 mg/dL 0.2 - 1 .3 mg/dL [facility] Calcium [Mass/Vol] 8.4 mg/dL 8.4 - 10. 4 mg/dL [facility] Chloride [Moles/Vol] 110 mmol/L High 98 - 10 7 mmol/L [facility] CO2 [Moles/Vol] 21 mmol/L Low 22 - 30 mmol/L [facility] Creatinine [Mass/Vol] 0.44 mg/dL Low 0.66 - 1.25 mg/dL [facility] GFR/1.73 sq M.predicted (S/P/Bld) [Vol rate/Area] - PINF [facility] Comment on above: Calculation based on the Chronic Kidney Disease Epidemiology Collaboration (CKD-EPI) equation refit without adjustment for race Glucose [Mass/Vol] 212 mg/dL High 70 - 100 mg/dL [facility] Interpretation and review of laboratory results Abnormal [facility] Potassium [Moles/Vol] 3.4 mmol/L Low 3.5 - 5.1 mmol/L [facility] Protein [Mass/Vol] 6.3 g/dL 6.3 - 8.2 g/dL [facility] Sodium [Moles/Vol] 134 mmol/L Low 135 - 145 mmol/L [facility] Urea nitrogen [Mass/Vol] 11 mg/dL 9 - 20 mg/dL [facility] Laboratory - Chemistry and C hemistry - challengeon 05-19-2024 Glucose [Mass/Vol] 292 mg/dL High 70 - 100 mg/dL [facility] Glucose [Mass/Vol] 294 mg/dL High 70 - 100 mg/dL [facility] Glucose [Mass/Vol] 333 mg/dL High 70 - 100 mg/dL [facility] Glucose [Mass/Vol] 274 mg/dL High 70 - 100 mg/dL [facility] No Panel Informationon 05-19 Interpretation and review of laboratory results Abnormal [facility] Performed by: [facility] [employer] [facility], [address] [place] [address] CLIA ID: [id number] [facility] Interpretation and review of laboratory results Abnormal [facility] Performed by: [facility] [employer] [facility], [address] [place] [address] CLIA ID: [id number] [facility] Interpretation and review of laboratory results Abnormal [facility] Performed by: [facility] [employer] [facility], [address] [place] [address] CLIA ID: [id number] [facility] Interpretation and review of laboratory results Abnormal [facility] Performed by: Bradford Umaña [facility], [address] [place] [address] CLIA ID: [id number] [facility] Basic metabolic 1998 panelon 05-18-2024 Anion gap [Moles/Vol] 5 mmol/L 3 - 13 mmol/L [facility] Calcium [Mass/Vol] 8.6 mg/dL 8.4 - 10. 4 mg/dL [facility] Chloride [Moles/Vol] 108 mmol/L High 98 - 10 7 mmol/L [facility] CO2 [Moles/Vol] 22 mmol/L 22 - 30 mmol/L [facility] Creatinine [Mass/Vol] 0.64 mg/dL Low 0.66 - 1.25 mg/dL [facility] GFR/1.73 sq M.predicted (S/P/Bld) [Vol rate/Area] - PINF [facility] Comment on above: Calculation based on the Chronic Kidney Disease Epidemiology Collaboration (CKD-EPI) equation refit without adjustment for race Glucose [Mass/Vol] 143 mg/dL High 70 - 100 mg/dL [facility] Interpretation and review of laboratory results Abnormal [facility] Potassium [Moles/Vol] 4.5 mmol/L 3.5 - 5.1 mmol/L [facility] Sodium [Moles/Vol] 136 mmol/L 135 - 145 mmol/L [facility] Urea nitrogen [Mass/Vol] 13 mg/dL 9 - 20 mg/dL [facility] Slightly Hemolyzed. Interpret K+ with caution. [facility] CBC W Auto Differential pane l (Bld)Ordered By: Gayle Stafford on 05-18-2024 Basophils (Bld) [#/Vol] 0.1 10*3/uL 0.0 - 0.2 10*3/uL [facility] Basophils/100 WBC (Bld) 0.8 % 0.0 - 2.0 % [facility] Eosinophils (Bld) [#/Vol] 0.4 10*3/uL 0.0 - 0.5 10*3/uL [facility] Eosinophils/100 WBC (Bld) 5.4 % 0.0 - 6.0 % [facility] Erythrocyte distribution width (RBC) [Ratio] 15.6 % High 11.5 - 15.0 % [facility] Hematocrit (Bld) [Volume fraction] 38.7 % Low 40.0 - 52.0 % [facility] Hemoglobin (Bld) [Mass/Vol] 12.5 g/dL Low 13.0 - 18.0 g/dL [facility] Immature granulocytes (Bld) [#/Vol] 0.0 10*3/uL NINF - 0.1 10*3/uL [facility] Immature granulocytes/100 WBC (Bld) 0.4 % 0.0 - 2.0 % [facility] Interpretation and review of laboratory results Abnormal [facility] Lymphocytes (Bld) [#/Vol] 2.2 10*3/uL 1.0 - 4.3 10*3/uL [facility] Lymphocytes/100 WBC (Bld) 28.0 % 15.0 - 45.0 % [facility] MCH (RBC) [Entitic mass] 30.3 pg 26. 0 - 34.0 pg [facility] MCHC (RBC) [Mass/Vol] 32.3 % 30.5 - 36.0 % [facility] MCV (RBC) [Entitic vol] 93.7 fL 77.0 - 99.0 fL [facility] Monocytes (Bld) [#/Vol] 0.7 10*3/uL 0.0 - 0.9 10*3/uL [facility] Monocytes/100 WBC (Bld) 9.6 % 5.0 - 13.0 % [facility] Neutrophils (Bld) [#/Vol] 4.3 10*3/uL 1.8 - 7.5 10*3/uL [facility] Neutrophils/100 WBC (Bld) 55.8 % 38.0 - 82.0 % [facility] Nucleated RBC/100 WBC (Bld) [Ratio] 0.0 % [facility] Platelet mean volume (Bld) [Entitic vol] 10.9 fL 9.0 - 12.7 fL [facility] Platelets (Bld) [#/Vol] 222 10*3/uL 140 - 440 10*3/uL [facility] RBC (Bld) [#/Vol] 4.13 10*6/uL Low 4.40 - 5.9 0 10*6/uL [facility] WBC (Bld) [#/Vol] 7.7 10*3/uL 3.6 - 10.7 10*3/uL [facility] Laboratory - Chemistry and C hemistry - challengeon 05-18-2024 Glucose [Mass/Vol] 140 mg/dL High 70 - 100 mg/dL [facility] No Panel Informationon 05-18 Interpretation and review of laboratory results Abnormal [facility] Performed by: [facility], [address] [place] [address] CLIA ID: [id number] [facility] Urinalysis complete panel (U )Ordered By: Franchesca Garnica on 05-18-2024 Bacteria LM.HPF (Urine sed) [#/Area] Many Abnormal Negative /HPF [facility] Bilirubin Ql (U) Negative Negative mg/dL [facility] Clarity (U) Turbid Abnormal Clear [facility] Color (U) Yellow Lt. Yellow [facility] Epithelial cells.squamous LM.HPF (Urine sed) [#/Area] Negative [facility] h Glucose Ql (U) Normal Normal (<70) mg/dL [facility] Hemoglobin Ql (U) 0.5 mg/dL Abnormal Negative [facility] Hyaline casts Auto (Urine sed) [#/Area] Negative Negative /LPF [facility] Interpretation and review of laboratory results Abnormal [facility] Ketones (U) [Mass/Vol] Negative Negat mary grace mg/dL [facility] Leukocyte clumps LM.HPF (Urine sed) [#/Area] Many Abnormal Negative /HPF [facility] Leukocyte esterase Test strip Ql (U) 500 Abnormal Negative Da/uL [facility] Mucus LM.HPF (Urine sed) [#/Area] Few Negative /LPF [facility] Nitrite Ql (U) Positive Abnormal Negative [facility] th pH (U) 6.5 [pH] 5.0 - 8.0 pH [facility] Protein (U) [Mass/Vol] 50 mg/dL Abnormal Negative [facility] RBC LM.HPF (Urine sed) [#/Area] 51-100 Abnormal [facility] Specific gravity (U) [Rel density] 1.015 1.005 - 1.030 [facility] Urobilinogen (U) [Mass/Vol] Normal Normal (0-1) mg/dL [facility] WBC LM.HPF (Urine sed) [#/Area] /[HPF] Abnormal [facility] Basic metabolic 1998 panelon 05-17-2024 Anion gap [Moles/Vol] 6 mmol/L 3 - 13 mmol/L [facility] Calcium [Mass/Vol] 8.7 mg/dL 8.4 - 10. 4 mg/dL [facility] Chloride [Moles/Vol] 109 mmol/L High 98 - 10 7 mmol/L [facility] CO2 [Moles/Vol] 20 mmol/L Low 22 - 30 mmol/L [facility] Creatinine [Mass/Vol] 0.68 mg/dL 0.66 - 1.25 mg/dL [facility] GFR/1.73 sq M.predicted (S/P/Bld) [Vol rate/Area] - PINF [facility] Comment on above: Calculation based on the Chronic Kidney Disease Epidemiology Collaboration (CKD-EPI) equation refit without adjustment for race Glucose [Mass/Vol] 172 mg/dL High 70 - 100 mg/dL [facility] Interpretation and review of laboratory results Abnormal [facility] Potassium [Moles/Vol] 4.4 mmol/L 3.5 - 5.1 mmol/L [facility] Sodium [Moles/Vol] 136 mmol/L 135 - 145 mmol/L [facility] Urea nitrogen [Mass/Vol] 12 mg/dL 9 - 20 mg/dL [facility] CBC W Auto Differential pane l (Bld)Ordered By: Jnaice Carey on 05-17-2024 Basophils (Bld) [#/Vol] 0.0 10*3/uL 0.0 - 0.2 10*3/uL [facility] Basophils/100 WBC (Bld) 0.8 % 0.0 - 2.0 % [facility] Eosinophils (Bld) [#/Vol] 0.3 10*3/uL 0.0 - 0.5 10*3/uL [facility] Eosinophils/100 WBC (Bld) 7.4 % High 0.0 - 6.0 % [facility] Erythrocyte distribution width (RBC) [Ratio] 16.8 % High 11.5 - 15.0 % [facility] Hematocrit (Bld) [Volume fraction] 60.0 % High 40.0 - 52.0 % [facility] Hemoglobin (Bld) [Mass/Vol] 19.6 g/dL High 13.0 - 18.0 g/dL [facility] Immature granulocytes (Bld) [#/Vol] 0.0 10*3/uL NINF - 0.1 10*3/uL [facility] Immature granulocytes/100 WBC (Bld) 0.3 % 0.0 - 2.0 % [facility] Interpretation and review of laboratory results Abnormal [facility] Lymphocytes (Bld) [#/Vol] 1.0 10*3/uL 1.0 - 4.3 10*3/uL [facility] Lymphocytes/100 WBC (Bld) 26.9 % 15.0 - 45.0 % [facility] MCH (RBC) [Entitic mass] 30.1 pg 26. 0 - 34.0 pg [facility] MCHC (RBC) [Mass/Vol] 32.7 % 30.5 - 36.0 % [facility] MCV (RBC) [Entitic vol] 92.2 fL 77.0 - 99.0 fL [facility] Monocytes (Bld) [#/Vol] 0.2 10*3/uL 0.0 - 0.9 10*3/uL [facility] Monocytes/100 WBC (Bld) 6.8 % 5.0 - 13.0 % [facility] Neutrophils (Bld) [#/Vol] 2.0 10*3/uL 1.8 - 7.5 10*3/uL [facility] Neutrophils/100 WBC (Bld) 57.8 % 38.0 - 82.0 % [facility] Nucleated RBC/100 WBC (Bld) [Ratio] 0.0 % [facility] Platelet mean volume (Bld) [Entitic vol] 9.9 fL 9.0 - 12.7 fL [facility] Platelets (Bld) [#/Vol] 105 10*3/uL Low 140 - 440 10*3/uL [facility] RBC (Bld) [#/Vol] 6.51 10*6/uL High 4.40 - 5.9 0 10*6/uL [facility] WBC (Bld) [#/Vol] 3.5 10*3/uL Low 3.6 - 10.7 10*3/uL [facility] Laboratory - Chemistry and C hemistry - challengeon 05-17-2024 Lactate [Moles/Vol] 1.4 mmol/L 0.7 - 2. 0 mmol/L [facility] No Panel Informationon 05-17 Interpretation and review of laboratory results Normal [facility] Urinalysis complete panel (U )Ordered By: Madison Novak on 05-17-2024 Bacteria LM.HPF (Urine sed) [#/Area] Many Abnormal Negative /HPF [facility] Bilirubin Ql (U) Negative Negative mg/dL [facility] Clarity (U) Turbid Abnormal Clear [facility] Color (U) Yellow Lt. Yellow [facility] Epithelial cells.squamous LM.HPF (Urine sed) [#/Area] [facility]) Normal Normal (<70) mg/dL [facility] Hemoglobin Ql (U) 1.0 mg/dL Abnormal Negative [facility] Interpretation and review of laboratory results Abnormal [facility] Ketones (U) [Mass/Vol] Negative Negat mary grace mg/dL [facility] Leukocyte esterase Test strip Ql (U) 500 Abnormal Negative Da/uL [facility] Mucus LM.HPF (Urine sed) [#/Area] Few Negative /LPF [facility] Nitrite Ql (U) Positive Abnormal Negative [facility] th pH (U) 8.0 [pH] 5.0 - 8.0 pH [facility] Protein (U) [Mass/Vol] 100 mg/dL Abnormal Negative [facility] RBC LM.HPF (Urine sed) [#/Area] 11-25 Abnormal [facility] Specific gravity (U) [Rel density] 1.016 1.005 - 1.030 [facility] Triple phosphate crystals LM.HPF (Urine sed) [#/Area] Few Abnormal Negative /HPF [facility] Urobilinogen (U) [Mass/Vol] Normal Normal (0-1) mg/dL [facility] WBC LM.HPF (Urine sed) [#/Area] /[HPF] Abnormal [facility] Progress Noteson 05-15-2024 [employer] Authentication Interface Message Text HISTORY OF PRESENT ILLNESS ----- Car Tester: not needed - patient preferred language is Bots[place]an. HIPAA: Verbal permission granted from patient to discuss case, including protected health information, in front of family / friends in room at the time of the evaluation. Anmol Reynolds is a very pleasant 63 year old male here as new patient for a second opinion of MRI results. In 2019, pt had his first back surgery performed by [facility] which was an interbody fusion. 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 At that point, the hospital took the hardware out and did not replace it with the goal of treating the infection. 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 After the infection was treated, [facility] extended his fusion, decompressed the back, [...] Resource Strain: Low Risk (04/24/2023) Received from [facility] Overall Financial Resource Strain (CARDIA) Difficulty of Paying Living Expenses: Not hard at all Food Insecurity: No Food Insecurity (05/05/2024) Received from [facility] Hunger Vital Sign Worried About Running Out of Food in the Last Year: Never true Ran Out of Food in the Last Year: Never true Transportation Needs: No Transportation Needs (05/05/2024) Received from [facility] PRAPARE - Transportation Lack of Transportation (Medical): No Lack of Transportation (Non-Medical): No Intimate Partner Violence: Not At Risk (05/05/2024) Received from [facility] Humiliation, Afraid, Rape, and Kick questionnaire Fear [...] heal (more content not included)... Normal [facility] XR SACRUM-COCCYX 3 VIEWSon 0 05-12-2024 [...] 04:02 PM CLINICAL HISTORY: upright scoli - [place] [employer] DIAGNOSIS: Sacral insufficiency fracture, initial encounter ORDERING PROVIDER: OTIS MEJIA [employer] NOTE: Best possible - Upright in chair, right lateral due to limitations of room layout and equipment COMPARISON: None FINDINGS: Dextroscoliosis of thoracic spine is noted. [place] angle measures 10.0 degrees. [place] is at T8 level. Fusion of lumbar [...] considered. Ureteral stents are noted. MACRO: None [facility] XR Sacrum and Coccyx ViewsOr dered By: Juan William on 05-12-2024 [employer] Phone: XR Thoracic and lumbar spine 2 Views for scoliosison 05-12-2024 EXAMINATION: XR SCOLIOSIS PA + LAT 2 OR 3 VIEWS 05/11/2024 04:02 PM CLINICAL HISTORY: upright scoli - [place] [employer] DIAGNOSIS: Sacral insufficiency fracture, initial encounter ORDERING PROVIDER: OTIS MEJIA TECHNJUNIE NOTE: Best possible - Upright in chair, right lateral due to limitations of room layout and equipment COMPARISON: None FINDINGS: Dextroscoliosis of thoracic spine is noted. [place] angle measures 10.0 degrees. [place] is at T8 level. Fusion of lumbar [...] 04:02 PM CLINICAL HISTORY: upright scoli - [place] [employer] DIAGNOSIS: Sacral insufficiency fracture, initial encounter ORDERING PROVIDER: OTIS MEJIA TECHNJUNIE NOTE: Best possible - Upright in chair, right lateral due to limitations of room layout and equipment COMPARISON: None FINDINGS: Dextroscoliosis of thoracic spine is noted. [place] angle measures 10.0 degrees. [place] is at T8 level. Fusion of lumbar [...] and fusion of L2-L3 segments. MACRO: None [facility] XR Sacrum and Coccyx Viewson 05-11-2024 Radiology Study observation (narrative) [facility] XR Thoracic and lumbar spine 2 Views for scoliosison 05-11-2024 Radiology Study observation (narrative) [facility] Telephone Encounteron 2023 [employer] Technician Authentication Interface Message Text Pt calling requesting provider to follow up regarding MRI. Pt was unable to provide telephone, address or SSN. No information was provided at this time. Normal [facility] Basic metabolic 1998 panelon 05-06-2024 Anion gap [Moles/Vol] 8 mmol/L 3 - 13 mmol/L [facility] Calcium [Mass/Vol] 8.4 mg/dL 8.4 - 10. 4 mg/dL [facility] Chloride [Moles/Vol] 105 mmol/L 98 - 10 7 mmol/L [facility] CO2 [Moles/Vol] 23 mmol/L 22 - 30 mmol/L [facility] Creatinine [Mass/Vol] 0.62 mg/dL Low 0.66 - 1.25 mg/dL [facility] GFR/1.73 sq M.predicted (S/P/Bld) [Vol rate/Area] - PINF [facility] Comment on above: Calculation based on the Chronic Kidney Disease Epidemiology Collaboration (CKD-EPI) equation refit without adjustment for race Glucose [Mass/Vol] 416 mg/dL High 70 - 100 mg/dL [facility] Interpretation and review of laboratory results Abnormal [facility] Potassium [Moles/Vol] 4.1 mmol/L 3.5 - 5.1 mmol/L [facility] Sodium [Moles/Vol] 136 mmol/L 135 - 145 mmol/L [facility] Urea nitrogen [Mass/Vol] 14 mg/dL 9 - 20 mg/dL [facility] CBC panel Auto (Bld)on 05-06 Erythrocyte distribution width (RBC) [Ratio] 14.5 % 11.5 - 15.0 % [facility] Hematocrit (Bld) [Volume fraction] 36.0 % Low 40.0 - 52.0 % [facility] Hemoglobin (Bld) [Mass/Vol] 12.1 g/dL Low 13.0 - 18.0 g/dL [facility] Interpretation and review of laboratory results Abnormal [facility] MCH (RBC) [Entitic mass] 30.3 pg 26. 0 - 34.0 pg [facility] MCHC (RBC) [Mass/Vol] 33.6 % 30.5 - 36.0 % [facility] MCV (RBC) [Entitic vol] 90.2 fL 77.0 - 99.0 fL [facility] Platelet mean volume (Bld) [Entitic vol] 10.8 fL 9.0 - 12.7 fL [facility] Platelets (Bld) [#/Vol] 273 10*3/uL 140 - 440 10*3/uL [facility] RBC (Bld) [#/Vol] 3.99 10*6/uL Low 4.40 - 5.9 0 10*6/uL [facility] WBC (Bld) [#/Vol] 6.8 10*3/uL 3.6 - 10.7 10*3/uL [facility] Laboratory - Chemistry and C hemistry - challengeon 05-06-2024 Glucose [Mass/Vol] 260 mg/dL High 70 - 100 mg/dL [facility] Glucose [Mass/Vol] 428 mg/dL High 70 - 100 mg/dL [facility] Glucose [Mass/Vol] 359 mg/dL High 70 - 100 mg/dL [facility] No Panel Informationon 05-06 Interpretation and review of laboratory results Abnormal [facility], [address] [place] [address] CLIA ID: [id number] [facility] Interpretation and review of laboratory results Abnormal [facility] Performed by: [facility], [address] [place] [address] CLIA ID: [id number] [facility] Interpretation and review of laboratory results Abnormal [facility] Performed by: [facility], [address] [place] [address] CLIA ID: [id number] [facility] Laboratory - Chemistry and C hemistry - challengeon 05-05-2024 Glucose [Mass/Vol] 176 mg/dL High 70 - 100 mg/dL [facility] Glucose [Mass/Vol] 166 mg/dL High 70 - 100 mg/dL [facility] Glucose [Mass/Vol] 236 mg/dL High 70 - 100 mg/dL [facility] No Panel Informationon 05-05 Interpretation and review of laboratory results Abnormal [facility] Performed by: [facility], [address] [place] [address] CLIA ID: [id number] [facility] There is no interpretation needed for this exam. IMAGING Interpretation and review of laboratory results Abnormal [facility] Performed by: [facility], [address] [place] [address] CLIA ID: [id number] [facility] Interpretation and review of laboratory results Abnormal [facility] Performed by: [facility], [address] [place] [address] CLIA ID: [id number] [facility] Telephone Encounteron 2023 [employer] Authentication Interface Message Text Called pt and discussed his MRI L spine results. He has SCI rehab follow up scheduled. Recommended Spine Surgery opinion. No change in clinical condition from last visit. Vaishali Pierre, DO Normal [facility] [employer] Authentication Interface Message Text Called pt again. Staff at the SNF stated he was unable to come to the phone and asked for call back later in the day. Vaishali Pierre DO Normal [facility] Telephone Encounteron 2023 [employer] Authentication Interface Message Text Called pt and reached staff, but he was unable to come to the phone. Will try again tomorrow. Vaishali Pierre, DO Normal [facility] CBC W Auto Differential pane l (Bld)on 04-20-2024 Erythrocyte distribution width (RBC) [Ratio] 14.8 % 11.5 - 15.0 % [facility] Hematocrit (Bld) [Volume fraction] 34.8 % Low 40.0 - 52.0 % [facility] Hemoglobin (Bld) [Mass/Vol] 11.3 g/dL Low 13.0 - 18.0 g/dL [facility] Interpretation and review of laboratory results Abnormal [facility] IPF 7 [facility] MCH (RBC) [Entitic mass] 30.5 pg 26. 0 - 34.0 pg [facility] MCHC (RBC) [Mass/Vol] 32.5 % 30.5 - 36.0 % [facility] MCV (RBC) [Entitic vol] 94.1 fL 77.0 - 99.0 fL [facility] Platelet mean volume (Bld) [Entitic vol] 11.6 fL 9.0 - 12.7 fL [facility] Platelets (Bld) [#/Vol] 121 10*3/uL Low 140 - 440 10*3/uL [facility] RBC (Bld) [#/Vol] 3.70 10*6/uL Low 4.40 - 5.9 0 10*6/uL [facility] WBC (Bld) [#/Vol] 6.4 10*3/uL 3.6 - 10.7 10*3/uL [facility] Comprehensive metabolic 1998 panelon 04-20-2024 Albumin [Mass/Vol] 2.5 g/dL Low 3.5 - 5.0 g/dL [facility] ALP [Catalytic activity/Vol] 94 U/L 38 - 126 U/L [facility] ALT [Catalytic activity/Vol] 15 U/L 0 - 49 U/L [facility] Anion gap [Moles/Vol] 6 mmol/L 3 - 13 mmol/L [facility] AST [Catalytic activity/Vol] 19 U/L 15 - 46 U/L [facility] Bilirubin [Mass/Vol] 0.4 mg/dL 0.2 - 1 .3 mg/dL [facility] Calcium [Mass/Vol] 7.6 mg/dL Low 8.4 - 10. 4 mg/dL [facility] Chloride [Moles/Vol] 108 mmol/L High 98 - 10 7 mmol/L [facility] CO2 [Moles/Vol] 23 mmol/L 22 - 30 mmol/L [facility] Creatinine [Mass/Vol] 0.44 mg/dL Low 0.66 - 1.25 mg/dL [facility] GFR/1.73 sq M.predicted MDRD (S/P/Bld) [Vol rate/Area] - PINF [facility] Glucose [Mass/Vol] 284 mg/dL High 70 - 100 mg/dL [facility] Interpretation and review of laboratory results Abnormal [facility] Potassium [Moles/Vol] 3.8 mmol/L 3.5 - 5.1 mmol/L [facility] Protein [Mass/Vol] 5.6 g/dL Low 6.3 - 8.2 g/dL [facility] Sodium [Moles/Vol] 138 mmol/L 135 - 145 mmol/L [facility] Urea nitrogen [Mass/Vol] 14 mg/dL 9 - 20 mg/dL [facility] Laboratory - Chemistry and C hemistry - challengeon 04-20-2024 Glucose [Mass/Vol] 282 mg/dL High 70 - 100 mg/dL [facility] Glucose [Mass/Vol] 398 mg/dL High 70 - 100 mg/dL [facility] Glucose [Mass/Vol] 323 mg/dL High 70 - 100 mg/dL [facility] Magnesium [Mass/Vol] 1.8 mg/dL 1.6 - 2 .3 mg/dL [facility] Laboratory - Hematology and Cell countson 04-20-2024 Eosinophils (Bld) [#/Vol] 0.3 10*3/uL 0.0 - 0.5 10*3/uL [facility] Eosinophils/100 WBC (Bld) 5 % 0 - 6 % [facility] Lymphocytes (Bld) [#/Vol] 2.0 10*3/uL 1.0 - 4.3 10*3/uL [facility] Lymphocytes/100 WBC (Bld) 32 % 15 - 45 % [facility] Monocytes (Bld) [#/Vol] 0.6 10*3/uL 0.0 - 0.9 10*3/uL [facility] Monocytes/100 WBC (Bld) 10 % 5 - 13 % [facility] Neutrophils (Bld) [#/Vol] 3.4 10*3/uL 1.8 - 7.5 10*3/uL [facility] RBC morphology finding Nom (Bld) Normal [facility] Segmented neutrophils/100 WBC (Bld) 53 % 38 - 82 % [facility] Laboratory - Microbiology an d Antimicrobial susceptibilityon 04-20-2024 SARS-CoV-2 (COVID-19) Ag IA.rapid Ql (Resp) Negative Negative [facility] No Panel Informationon 04-20 Interpretation and review of laboratory results Abnormal [facility] CV EPIPHANY [facility] Interpretation and review of laboratory results Abnormal [facility] Radiology Study observation (narrative) [facility] Interpretation and review of laboratory results Abnormal [facility] Eosinophils Manual 5 High 0 - 1 [facility] Interpretation and review of laboratory results Abnormal [facility] Lymphocytes Manual 32 [facility] Monocytes Manual 10 [facility] Neutrophils Manual 53 [facility] Interpretation and review of laboratory results Normal [facility] No Panel InformationOrdered By: Jax Wiggins on 04-20-2024 P [place] 10 degrees [facility] Work Phone: [phone] ND Interval 159 ms [facility] Work Phone: QRS [place] 28 degrees [facility] Work Phone: [phone] QRSD Interval 96 ms [facility] [employer] Work Phone: [phone] QT Interval 426 ms [facility] Work Phone: [phone] QTC Interval 477 ms [facility] Work Phone: [phone] T Wave [place] 28 degrees [facility] Work Phone: [facility] Work Phone: [phone] No Panel InformationOrdered By: Marie Howard on 04-20-2024 [facility] Work Phone: Phosphate [Moles/Vol]on 04-04 Phosphate [Mass/Vol] 2.8 mg/dL 2.5 - 4 .5 mg/dL [facility] SARS-CoV-2 (COVID-19) Ag IA. rapid Ql (Resp)on 04-20-2024 Interpretation and review of laboratory results Normal [facility] Vital signsOrdered By: Seth Wiggins on 04-20-2024 Heart rate 75 /min bpm [facility] Work Phone: CBC W Auto Differential pane l (Bld)on 04-19-2024 Erythrocyte distribution width (RBC) [Ratio] 14.8 % 11.5 - 15.0 % [facility] Hematocrit (Bld) [Volume fraction] 35.0 % Low 40.0 - 52.0 % [facility] Hemoglobin (Bld) [Mass/Vol] 11.6 g/dL Low 13.0 - 18.0 g/dL [facility] IPF 8 [facility] MCH (RBC) [Entitic mass] 30.6 pg 26. 0 - 34.0 pg [facility] MCHC (RBC) [Mass/Vol] 33.1 % 30.5 - 36.0 % [facility] MCV (RBC) [Entitic vol] 92.3 fL 77.0 - 99.0 fL [facility] Platelet mean volume (Bld) [Entitic vol] 11.6 fL 9.0 - 12.7 fL [facility] Platelets (Bld) [#/Vol] 88 10*3/uL Low 140 - 440 10*3/uL [facility] RBC (Bld) [#/Vol] 3.79 10*6/uL Low 4.40 - 5.9 0 10*6/uL [facility] WBC (Bld) [#/Vol] 9.2 10*3/uL 3.6 - 10.7 10*3/uL [facility] Comprehensive metabolic 1998 panelon 04-19-2024 Albumin [Mass/Vol] 2.7 g/dL Low 3.5 - 5.0 g/dL [facility] ALP [Catalytic activity/Vol] 119 U/L 38 - 126 U/L [facility] ALT [Catalytic activity/Vol] 16 U/L 0 - 49 U/L [facility] Anion gap [Moles/Vol] 5 mmol/L 3 - 13 mmol/L [facility] AST [Catalytic activity/Vol] 19 U/L 15 - 46 U/L [facility] Bilirubin [Mass/Vol] 0.6 mg/dL 0.2 - 1 .3 mg/dL [facility] Calcium [Mass/Vol] 7.9 mg/dL Low 8.4 - 10. 4 mg/dL [facility] Chloride [Moles/Vol] 107 mmol/L 98 - 10 7 mmol/L [facility] CO2 [Moles/Vol] 26 mmol/L 22 - 30 mmol/L [facility] Creatinine [Mass/Vol] 0.44 mg/dL Low 0.66 - 1.25 mg/dL [facility] GFR/1.73 sq M.predicted MDRD (S/P/Bld) [Vol rate/Area] - PINF [facility] Glucose [Mass/Vol] 153 mg/dL High 70 - 100 mg/dL [facility] Interpretation and review of laboratory results Abnormal [facility] Potassium [Moles/Vol] 3.5 mmol/L 3.5 - 5.1 mmol/L [facility] Protein [Mass/Vol] 6.0 g/dL Low 6.3 - 8.2 g/dL [facility] Sodium [Moles/Vol] 138 mmol/L 135 - 145 mmol/L [facility] Urea nitrogen [Mass/Vol] 14 mg/dL 9 - 20 mg/dL [facility] Laboratory - Chemistry and C hemistry - challengeon 04-19-2024 Glucose [Mass/Vol] 305 mg/dL High 70 - 100 mg/dL [facility] Glucose [Mass/Vol] 232 mg/dL High 70 - 100 mg/dL [facility] Glucose [Mass/Vol] 163 mg/dL High 70 - 100 mg/dL [facility] Glucose [Mass/Vol] 155 mg/dL High 70 - 100 mg/dL [facility] Magnesium [Mass/Vol] 1.8 mg/dL 1.6 - 2 .3 mg/dL [facility] Laboratory - Hematology and Cell countson 04-19-2024 Band form neutrophils (Bld) [#/Vol] 0.1 10*3/uL High NINF - 0.0 10*3/uL [facility] Band form neutrophils/100 WBC (Bld) 1 % High NINF - 0 % [facility] Basophils (Bld) [#/Vol] 0.1 10*3/uL 0.0 - 0.2 10*3/uL [facility] Basophils/100 WBC (Bld) 1 % 0 - 2 % [facility] Eosinophils (Bld) [#/Vol] 0.4 10*3/uL 0.0 - 0.5 10*3/uL [facility] Eosinophils/100 WBC (Bld) 4 % 0 - 6 % [facility] Lymphocytes (Bld) [#/Vol] 1.2 10*3/uL 1.0 - 4.3 10*3/uL [facility] Lymphocytes/100 WBC (Bld) 13 % Low 15 - 45 % [facility] Monocytes (Bld) [#/Vol] 0.7 10*3/uL 0.0 - 0.9 10*3/uL [facility] Monocytes/100 WBC (Bld) 8 % 5 - 13 % [facility] Neutrophils (Bld) [#/Vol] 6.7 10*3/uL 1.8 - 7.5 10*3/uL [facility] RBC morphology finding Nom (Bld) abnormal [facility] Segmented neutrophils/100 WBC (Bld) 72 % 38 - 82 % [facility] Stomatocytes LM Ql (Bld) Slight Abnormal (none) [facility] Variant lymphocytes (Bld) [#/Vol] 0.1 10*3/uL High NINF - 0.0 10*3/uL [facility] Variant lymphocytes/100 WBC (Bld) 1 % High NINF - 0 % [facility] No Panel Informationon 04-19 Interpretation and review of laboratory results Abnormal [facility] Interpretation and review of laboratory results Abnormal [facility] Interpretation and review of laboratory results Abnormal [facility] Interpretation and review of laboratory results Abnormal [facility] Atypical Lymphocytes Manual 1 [facility] Bands Manual 1 [facility] Basophils Manual 1 [facility] Eosinophils Manual 4 High 0 - 1 [facility] Interpretation and review of laboratory results Abnormal [facility] Lymphocytes Manual 13 [facility] Monocytes Manual 8 [facility] Neutrophils Manual 71 [facility] Interpretation and review of laboratory results Normal [facility] Phosphate [Moles/Vol]on 04-04 Phosphate [Mass/Vol] 3.2 mg/dL 2.5 - 4 .5 mg/dL [facility] Bacteria identified Cx Nom ( Bld)on 04-18-2024 Interpretation and review of laboratory results Abnormal [facility] Bacteria identified Cx Nom ( Bld)Ordered By: Yani Martínez on 04-18-2024 Interpretation and review of laboratory results Abnormal [facility] CBC W Auto Differential pane l (Bld)Ordered By: Grieclda Eduardo on 04-18-2024 Erythrocyte distribution width (RBC) [Ratio] 15.0 % 11.5 - 15.0 % [facility] Hematocrit (Bld) [Volume fraction] 36.6 % Low 40.0 - 52.0 % [facility] Hemoglobin (Bld) [Mass/Vol] 12.1 g/dL Low 13.0 - 18.0 g/dL [facility] Interpretation and review of laboratory results Abnormal [facility] IPF 9 [facility] MCH (RBC) [Entitic mass] 30.6 pg 26. 0 - 34.0 pg [facility] MCHC (RBC) [Mass/Vol] 33.1 % 30.5 - 36.0 % [facility] MCV (RBC) [Entitic vol] 92.7 fL 77.0 - 99.0 fL [facility] Platelet mean volume (Bld) [Entitic vol] 11.7 fL 9.0 - 12.7 fL [facility] Platelets (Bld) [#/Vol] 79 10*3/uL Low 140 - 440 10*3/uL [facility] RBC (Bld) [#/Vol] 3.95 10*6/uL Low 4.40 - 5.9 0 10*6/uL [facility] WBC (Bld) [#/Vol] 8.4 10*3/uL 3.6 - 10.7 10*3/uL [facility] Comprehensive metabolic 1998 panelon 04-18-2024 Albumin [Mass/Vol] 2.9 g/dL Low 3.5 - 5.0 g/dL [facility] ALP [Catalytic activity/Vol] 123 U/L 38 - 126 U/L [facility] ALT [Catalytic activity/Vol] 18 U/L 0 - 49 U/L [facility] Anion gap [Moles/Vol] 7 mmol/L 3 - 13 mmol/L [facility] AST [Catalytic activity/Vol] 18 U/L 15 - 46 U/L [facility] Bilirubin [Mass/Vol] 0.8 mg/dL 0.2 - 1 .3 mg/dL [facility] Calcium [Mass/Vol] 7.8 mg/dL Low 8.4 - 10. 4 mg/dL [facility] Chloride [Moles/Vol] 105 mmol/L 98 - 10 7 mmol/L [facility] CO2 [Moles/Vol] 27 mmol/L 22 - 30 mmol/L [facility] Creatinine [Mass/Vol] 0.51 mg/dL Low 0.66 - 1.25 mg/dL [facility] GFR/1.73 sq M.predicted MDRD (S/P/Bld) [Vol rate/Area] - PINF [facility] Glucose [Mass/Vol] 74 mg/dL 70 - 100 mg/dL [facility] Potassium [Moles/Vol] 3.1 mmol/L Low 3.5 - 5.1 mmol/L [facility] Protein [Mass/Vol] 6.0 g/dL Low 6.3 - 8.2 g/dL [facility] Sodium [Moles/Vol] 140 mmol/L 135 - 145 mmol/L [facility] Urea nitrogen [Mass/Vol] 15 mg/dL 9 - 20 mg/dL [facility] Laboratory - Chemistry and C hemistry - challengeon 04-18-2024 Glucose [Mass/Vol] 264 mg/dL High 70 - 100 mg/dL [facility] Glucose [Mass/Vol] 135 mg/dL High 70 - 100 mg/dL [facility] Glucose [Mass/Vol] 144 mg/dL High 70 - 100 mg/dL [facility] Magnesium [Mass/Vol] 1.5 mg/dL Low 1.6 - 2 .3 mg/dL [facility] Glucose [Mass/Vol] 78 mg/dL 70 - 100 mg/dL [facility] Laboratory - Microbiology an d Antimicrobial susceptibilityon 04-18-2024 Bacteria identified Cx Nom (Bld) Morganella morganii Critically abnormal [facility] Bacteria identified Cx Nom (Bld) Providencia stuartii Critically abnormal [facility] Laboratory - Microbiology an d Antimicrobial susceptibilityOrdered By: Yani Martínez on 04-18-2024 Bacteria identified Cx Nom (Bld) Proteus mirabilis Critically abnormal [facility] Bacteria identified Cx Nom (Bld) Providencia stuartii Critically abnormal [facility] Bacteria identified Cx Nom (Bld) Morganella morganii Critically abnormal [facility] Manual differential performe d Ql (Bld)on 04-18-2024 Anisocytosis Ql (Bld) Slight Abnormal (none) [facility] Cells Counted Total (Bld) [#] 100 {cells} [facility] Differential Method Manual differential performed [facility] Eosinophils (Bld) [#/Vol] 0.1 10*3/uL 0.0 - 0.5 10*3/uL [facility] Eosinophils Manual 1 0 - 1 [facility] Eosinophils/100 WBC (Bld) 1 % 0 - 6 % [facility] Hypochromia Ql (Bld) Slight Abnormal (none) [facility] Interpretation and review of laboratory results Abnormal [facility] Leukocyte morphology finding Nom (Bld) Normal [facility] Lymphocytes (Bld) [#/Vol] 1.1 10*3/uL 1.0 - 4.3 10*3/uL [facility] Lymphocytes Manual 13 [facility] Lymphocytes/100 WBC (Bld) 13 % Low 15 - 45 % [facility] Monocytes (Bld) [#/Vol] 0.7 10*3/uL 0.0 - 0.9 10*3/uL [facility] Monocytes Manual 8 [facility] Monocytes/100 WBC (Bld) 8 % 5 - 13 % [facility] Neutrophils (Bld) [#/Vol] 6.6 10*3/uL 1.8 - 7.0 10*3/uL [facility] Neutrophils Manual 78 [facility] Platelet morphology finding Nom (Bld) Normal [facility] Segmented neutrophils/100 WBC (Bld) 78 % 38 - 82 % [facility] WBC corrected for nucl RBC (Bld) [#/Vol] 8.4 10*3/uL 3.6 - 10.7 10*3/uL [facility] No Panel Informationon 04-18 Interpretation and review of laboratory results Abnormal [facility] Interpretation and review of laboratory results Abnormal [facility] Interpretation and review of laboratory results Abnormal [facility] Interpretation and review of laboratory results Abnormal [facility] Interpretation and review of laboratory results Normal [facility] Phosphate [Moles/Vol]on 04-04 Interpretation and review of laboratory results Normal [facility] Phosphate [Mass/Vol] 3.8 mg/dL 2.5 - 4 .5 mg/dL [facility] Bacteria identified Cx Nom ( U)Ordered By: Darya Clark on 04-17-2024 Interpretation and review of laboratory results Abnormal [facility] CBC W Auto Differential pane l (Bld)on 04-17-2024 Basophils (Bld) [#/Vol] 0.0 10*3/uL 0.0 - 0.2 10*3/uL [facility] Basophils/100 WBC (Bld) 0.1 % 0.0 - 2.0 % [facility] Eosinophils (Bld) [#/Vol] 0.1 10*3/uL 0.0 - 0.5 10*3/uL [facility] Eosinophils/100 WBC (Bld) 1.4 % 0.0 - 6.0 % [facility] Erythrocyte distribution width (RBC) [Ratio] 14.9 % 11.5 - 15.0 % [facility] Hematocrit (Bld) [Volume fraction] 35.4 % Low 40.0 - 52.0 % [facility] Hemoglobin (Bld) [Mass/Vol] 11.5 g/dL Low 13.0 - 18.0 g/dL [facility] Immature granulocytes (Bld) [#/Vol] 0.0 10*3/uL NINF - 0.1 10*3/uL [facility] Immature granulocytes/100 WBC (Bld) 0.3 % 0.0 - 2.0 % [facility] Interpretation and review of laboratory results Abnormal [facility] IPF 6 [facility] Lymphocytes (Bld) [#/Vol] 1.3 10*3/uL 1.0 - 4.3 10*3/uL [facility] Lymphocytes/100 WBC (Bld) 16.8 % 15.0 - 45.0 % [facility] MCH (RBC) [Entitic mass] 30.0 pg 26. 0 - 34.0 pg [facility] MCHC (RBC) [Mass/Vol] 32.5 % 30.5 - 36.0 % [facility] MCV (RBC) [Entitic vol] 92.4 fL 77.0 - 99.0 fL [facility] Monocytes (Bld) [#/Vol] 0.4 10*3/uL 0.0 - 0.9 10*3/uL [facility] Monocytes/100 WBC (Bld) 5.5 % 5.0 - 13.0 % [facility] Neutrophils (Bld) [#/Vol] 6.0 10*3/uL 1.8 - 7.5 10*3/uL [facility] Neutrophils/100 WBC (Bld) 75.9 % 38.0 - 82.0 % [facility] Nucleated RBC/100 WBC (Bld) [Ratio] 0.0 % [facility] Platelet mean volume (Bld) [Entitic vol] 11.6 fL 9.0 - 12.7 fL [facility] Platelets (Bld) [#/Vol] 77 10*3/uL Low 140 - 440 10*3/uL [facility] RBC (Bld) [#/Vol] 3.83 10*6/uL Low 4.40 - 5.9 0 10*6/uL [facility] WBC (Bld) [#/Vol] 7.9 10*3/uL 3.6 - 10.7 10*3/uL [facility] Comprehensive metabolic 1998 panelon 04-17-2024 Albumin [Mass/Vol] 2.6 g/dL Low 3.5 - 5.0 g/dL [facility] ALP [Catalytic activity/Vol] 128 U/L High 38 - 126 U/L [facility] ALT [Catalytic activity/Vol] 22 U/L 0 - 49 U/L [facility] Anion gap [Moles/Vol] 5 mmol/L 3 - 13 mmol/L [facility] AST [Catalytic activity/Vol] 22 U/L 15 - 46 U/L [facility] Bilirubin [Mass/Vol] 0.7 mg/dL 0.2 - 1 .3 mg/dL [facility] Calcium [Mass/Vol] 7.9 mg/dL Low 8.4 - 10. 4 mg/dL [facility] Chloride [Moles/Vol] 107 mmol/L 98 - 10 7 mmol/L [facility] CO2 [Moles/Vol] 23 mmol/L 22 - 30 mmol/L [facility] Creatinine [Mass/Vol] 0.58 mg/dL Low 0.66 - 1.25 mg/dL [facility] GFR/1.73 sq M.predicted MDRD (S/P/Bld) [Vol rate/Area] - PINF [facility] Glucose [Mass/Vol] 144 mg/dL High 70 - 100 mg/dL [facility] Interpretation and review of laboratory results Abnormal [facility] Potassium [Moles/Vol] 3.2 mmol/L Low 3.5 - 5.1 mmol/L [facility] Protein [Mass/Vol] 5.6 g/dL Low 6.3 - 8.2 g/dL [facility] Sodium [Moles/Vol] 135 mmol/L 135 - 145 mmol/L [facility] Urea nitrogen [Mass/Vol] 23 mg/dL High 9 - 20 mg/dL [facility] Laboratory - Chemistry and C hemistry - challengeon 04-17-2024 Glucose [Mass/Vol] 200 mg/dL High 70 - 100 mg/dL [facility] Glucose [Mass/Vol] 235 mg/dL High 70 - 100 mg/dL [facility] Glucose [Mass/Vol] 200 mg/dL High 70 - 100 mg/dL [facility] Glucose [Mass/Vol] 104 mg/dL High 70 - 100 mg/dL [facility] Magnesium [Mass/Vol] 1.6 mg/dL 1.6 - 2 .3 mg/dL [facility] Laboratory - Microbiology an d Antimicrobial susceptibilityOrdered By: Darya Clark on 04-17-2024 Bacteria identified Cx Nom (U) Normal urogenital gosia present [facility] Bacteria identified Cx Nom (U) 50,000-90,000 CFU/mL Providencia stuartii Abnormal [facility] No Panel Informationon 04-17 Interpretation and review of laboratory results Abnormal [facility] Interpretation and review of laboratory results Abnormal [facility] Interpretation and review of laboratory results Abnormal [facility] Interpretation and review of laboratory results Abnormal [facility] Interpretation and review of laboratory results Normal [facility] Phosphate [Moles/Vol]on 04-04 Phosphate [Mass/Vol] 2.8 mg/dL 2.5 - 4 .5 mg/dL [facility] CBC W Auto Differential pane l (Bld)Ordered By: Jj North on 04-16-2024 Erythrocyte distribution width (RBC) [Ratio] 15.2 % High 11.5 - 15.0 % [facility] Hematocrit (Bld) [Volume fraction] 37.2 % Low 40.0 - 52.0 % [facility] Hemoglobin (Bld) [Mass/Vol] 12.0 g/dL Low 13.0 - 18.0 g/dL [facility] IPF 8 [facility] MCH (RBC) [Entitic mass] 30.7 pg 26. 0 - 34.0 pg [facility] MCHC (RBC) [Mass/Vol] 32.3 % 30.5 - 36.0 % [facility] MCV (RBC) [Entitic vol] 95.1 fL 77.0 - 99.0 fL [facility] Platelet mean volume (Bld) [Entitic vol] 12.0 fL 9.0 - 12.7 fL [facility] Platelets (Bld) [#/Vol] 76 10*3/uL Low 140 - 440 10*3/uL [facility] RBC (Bld) [#/Vol] 3.91 10*6/uL Low 4.40 - 5.9 0 10*6/uL [facility] WBC (Bld) [#/Vol] 11.9 10*3/uL High 3.6 - 10.7 10*3/uL [facility] Comprehensive metabolic 1998 panelon 04-16-2024 Albumin [Mass/Vol] 2.8 g/dL Low 3.5 - 5.0 g/dL [facility] ALP [Catalytic activity/Vol] 130 U/L High 38 - 126 U/L [facility] ALT [Catalytic activity/Vol] 26 U/L 0 - 49 U/L [facility] Anion gap [Moles/Vol] 6 mmol/L 3 - 13 mmol/L [facility] AST [Catalytic activity/Vol] 37 U/L 15 - 46 U/L [facility] Bilirubin [Mass/Vol] 0.9 mg/dL 0.2 - 1 .3 mg/dL [facility] Calcium [Mass/Vol] 8.2 mg/dL Low 8.4 - 10. 4 mg/dL [facility] Chloride [Moles/Vol] 105 mmol/L 98 - 10 7 mmol/L [facility] CO2 [Moles/Vol] 25 mmol/L 22 - 30 mmol/L [facility] Creatinine [Mass/Vol] 0.70 mg/dL 0.66 - 1.25 mg/dL [facility] GFR/1.73 sq M.predicted MDRD (S/P/Bld) [Vol rate/Area] - PINF [facility] Glucose [Mass/Vol] 315 mg/dL High 70 - 100 mg/dL [facility] Interpretation and review of laboratory results Abnormal [facility] Potassium [Moles/Vol] 4.3 mmol/L 3.5 - 5.1 mmol/L [facility] Protein [Mass/Vol] 6.0 g/dL Low 6.3 - 8.2 g/dL [facility] Sodium [Moles/Vol] 137 mmol/L 135 - 145 mmol/L [facility] Urea nitrogen [Mass/Vol] 30 mg/dL High 9 - 20 mg/dL [facility] Laboratory - Chemistry and C hemistry - challengeon 04-16-2024 Glucose [Mass/Vol] 253 mg/dL High 70 - 100 mg/dL [facility] Glucose [Mass/Vol] 307 mg/dL High 70 - 100 mg/dL [facility] Glucose [Mass/Vol] 333 mg/dL High 70 - 100 mg/dL [facility] Glucose [Mass/Vol] 323 mg/dL High 70 - 100 mg/dL [facility] Magnesium [Mass/Vol] 2.0 mg/dL 1.6 - 2 .3 mg/dL [facility] Laboratory - Coagulationon 0 04-16-2024 aPTT Coag (PPP) [Time] 25.4 s 20.0 - 30.5 s [facility] INR Coag (PPP) [Relative time] 1.0 {INR} 0.9 - 1.1 [facility] PT Coag (Bld) [Time] 10.9 s 9.0 - 1 2.0 s [facility] Laboratory - Drug toxicology on 04-16-2024 Vancomycin [Mass/Vol] 12.3 ug/mL Low 15.0 - 20.0 ug/mL [facility] Laboratory - Hematology and Cell countson 04-16-2024 Anisocytosis Ql (Bld) Rare Abnormal (none) [facility] Band form neutrophils (Bld) [#/Vol] 0.2 10*3/uL High NINF - 0.0 10*3/uL [facility] Band form neutrophils/100 WBC (Bld) 2 % High NINF - 0 % [facility] [place] cells LM Ql (Bld) Slight Abnormal (none) [facility] Lymphocytes (Bld) [#/Vol] 0.5 10*3/uL Low 1.0 - 4.3 10*3/uL [facility] Lymphocytes/100 WBC (Bld) 4 % Low 15 - 45 % [facility] Monocytes (Bld) [#/Vol] 0.1 10*3/uL 0.0 - 0.9 10*3/uL [facility] Monocytes/100 WBC (Bld) 1 % Low 5 - 13 % [facility] Neutrophils (Bld) [#/Vol] 11.3 10*3/uL High 1.8 - 7.5 10*3/uL [facility] Ovalocytes LM Ql (Bld) Rare Abnormal (none) [facility] Poikilocytosis LM Ql (Bld) Slight Abnormal (none) [facility] RBC morphology finding Nom (Bld) abnormal [facility] Segmented neutrophils/100 WBC (Bld) 93 % High 38 - 82 % [facility] No Panel Informationon 04-16 Interpretation and review of laboratory results Abnormal [facility] Interpretation and review of laboratory results Abnormal [facility] Interpretation and review of laboratory results Normal [facility] Interpretation and review of laboratory results Abnormal [facility] Interpretation and review of laboratory results Abnormal [facility] Bands Manual 2 [facility] Lymphocytes Manual 4 [facility] Monocytes Manual 1 [facility] Neutrophils Manual 96 [facility] Interpretation and review of laboratory results Abnormal [facility] Interpretation and review of laboratory results Normal [facility] No Panel InformationOrdered By: Jj North on 04-16-2024 Interpretation and review of laboratory results Abnormal [facility] Phosphate [Moles/Vol]on 04-04 Phosphate [Mass/Vol] 2.7 mg/dL 2.5 - 4 .5 mg/dL [facility] CBC W Auto Differential pane l (Bld)Ordered By: Dawood Juan on 04-15-2024 Erythrocyte distribution width (RBC) [Ratio] 14.9 % 11.5 - 15.0 % [facility] Hematocrit (Bld) [Volume fraction] 36.2 % Low 40.0 - 52.0 % [facility] Hemoglobin (Bld) [Mass/Vol] 11.9 g/dL Low 13.0 - 18.0 g/dL [facility] Interpretation and review of laboratory results Abnormal [facility] IPF 5 [facility] MCH (RBC) [Entitic mass] 30.9 pg 26. 0 - 34.0 pg [facility] MCHC (RBC) [Mass/Vol] 32.9 % 30.5 - 36.0 % [facility] MCV (RBC) [Entitic vol] 94.0 fL 77.0 - 99.0 fL [facility] Platelet mean volume (Bld) [Entitic vol] 10.8 fL 9.0 - 12.7 fL [facility] Platelets (Bld) [#/Vol] 107 10*3/uL Low 140 - 440 10*3/uL [facility] RBC (Bld) [#/Vol] 3.85 10*6/uL Low 4.40 - 5.9 0 10*6/uL [facility] WBC (Bld) [#/Vol] 11.2 10*3/uL High 3.6 - 10.7 10*3/uL [facility] CBC W Auto Differential pane l (Bld)Ordered By: Benigno Guerrier on 04-15-2024 Erythrocyte distribution width (RBC) [Ratio] 14.8 % 11.5 - 15.0 % [facility] Hematocrit (Bld) [Volume fraction] 39.1 % Low 40.0 - 52.0 % [facility] Hemoglobin (Bld) [Mass/Vol] 12.4 g/dL Low 13.0 - 18.0 g/dL [facility] Interpretation and review of laboratory results Abnormal [facility] IPF 5 [facility] MCH (RBC) [Entitic mass] 30.8 pg 26. 0 - 34.0 pg [facility] MCHC (RBC) [Mass/Vol] 31.7 % 30.5 - 36.0 % [facility] MCV (RBC) [Entitic vol] 97.0 fL 77.0 - 99.0 fL [facility] Platelet mean volume (Bld) [Entitic vol] 10.9 fL 9.0 - 12.7 fL [facility] Platelets (Bld) [#/Vol] 117 10*3/uL Low 140 - 440 10*3/uL [facility] RBC (Bld) [#/Vol] 4.03 10*6/uL Low 4.40 - 5.9 0 10*6/uL [facility] WBC (Bld) [#/Vol] 5.4 10*3/uL 3.6 - 10.7 10*3/uL [facility] Comprehensive metabolic 1998 panelon 04-15-2024 Albumin [Mass/Vol] 2.6 g/dL Low 3.5 - 5.0 g/dL [facility] ALP [Catalytic activity/Vol] 168 U/L High 38 - 126 U/L [facility] ALT [Catalytic activity/Vol] 34 U/L 0 - 49 U/L [facility] Anion gap [Moles/Vol] 10 mmol/L 3 - 13 mmol/L [facility] AST [Catalytic activity/Vol] 36 U/L 15 - 46 U/L [facility] Bilirubin [Mass/Vol] 1.1 mg/dL 0.2 - 1 .3 mg/dL [facility] Calcium [Mass/Vol] 7.9 mg/dL Low 8.4 - 10. 4 mg/dL [facility] Chloride [Moles/Vol] 105 mmol/L 98 - 10 7 mmol/L [facility] CO2 [Moles/Vol] 19 mmol/L Low 22 - 30 mmol/L [facility] Creatinine [Mass/Vol] 1.01 mg/dL 0.66 - 1.25 mg/dL [facility] GFR/1.73 sq M.predicted MDRD (S/P/Bld) [Vol rate/Area] 84.1 mL/min/{1.73_m2} - PINF [facility] th Glucose [Mass/Vol] 286 mg/dL High 70 - 100 mg/dL [facility] Interpretation and review of laboratory results Abnormal [facility] Potassium [Moles/Vol] 3.6 mmol/L 3.5 - 5.1 mmol/L [facility] Protein [Mass/Vol] 5.5 g/dL Low 6.3 - 8.2 g/dL [facility] Sodium [Moles/Vol] 135 mmol/L 135 - 145 mmol/L [facility] Urea nitrogen [Mass/Vol] 25 mg/dL High 9 - 20 mg/dL [facility] Laboratory - Chemistry and C hemistry - challengeon 04-15-2024 Glucose [Mass/Vol] 390 mg/dL High 70 - 100 mg/dL [facility] Glucose [Mass/Vol] 342 mg/dL High 70 - 100 mg/dL [facility] Average glucose Estimated from glycated hemoglobin (Bld) [Mass/Vol] 134 mg/dL [facility] Glucose [Mass/Vol] 287 mg/dL High 70 - 100 mg/dL [facility] Lactate [Moles/Vol] 2.0 mmol/L 0.7 - 2. 0 mmol/L [facility] Procalcitonin [Mass/Vol] 27.06 ng/mL High 0.0 0 - 0.09 ng/mL [facility] Glucose [Mass/Vol] 285 mg/dL High 70 - 100 mg/dL [facility] Lactate [Moles/Vol] 3.6 mmol/L High 0.7 - 2. 0 mmol/L [facility] Magnesium [Mass/Vol] 1.7 mg/dL 1.6 - 2 .3 mg/dL [facility] Laboratory - Drug toxicology on 04-15-2024 Vancomycin [Mass/Vol] 10.8 ug/mL Low 15.0 - 20.0 ug/mL [facility] Laboratory - Hematology and Cell countson 04-15-2024 HbA1c (Bld) [Mass fraction] 6.3 % High NINF - 5.7 % [facility] Band form neutrophils (Bld) [#/Vol] 2.6 10*3/uL High NINF - 0.0 10*3/uL [facility] Band form neutrophils/100 WBC (Bld) 23 % High NINF - 0 % [facility] [place] cells LM Ql (Bld) Slight Abnormal (none) [facility] Lymphocytes (Bld) [#/Vol] 0.1 10*3/uL Low 1.0 - 4.3 10*3/uL [facility] Lymphocytes/100 WBC (Bld) 1 % Low 15 - 45 % [facility] Metamyelocytes (Bld) [#/Vol] 0.1 10*3/uL High NINF - 0.0 10*3/uL [facility] Metamyelocytes/100 WBC (Bld) 1 % High NINF - 0 % [facility] Monocytes (Bld) [#/Vol] 0.1 10*3/uL 0.0 - 0.9 10*3/uL [facility] Monocytes/100 WBC (Bld) 1 % Low 5 - 13 % [facility] Neutrophils (Bld) [#/Vol] 11.0 10*3/uL High 1.8 - 7.5 10*3/uL [facility] Poikilocytosis LM Ql (Bld) Rare Abnormal (none) [facility] RBC morphology finding Nom (Bld) abnormal [facility] Segmented neutrophils/100 WBC (Bld) 75 % 38 - 82 % [facility] Band form neutrophils (Bld) [#/Vol] 1.2 10*3/uL High NINF - 0.0 10*3/uL [facility] Band form neutrophils/100 WBC (Bld) 23 % High NINF - 0 % [facility] Basophils (Bld) [#/Vol] 0.1 10*3/uL 0.0 - 0.2 10*3/uL [facility] Basophils/100 WBC (Bld) 1 % 0 - 2 % [facility] [place] cells LM Ql (Bld) Slight Abnormal (none) [facility] Lymphocytes (Bld) [#/Vol] 0.1 10*3/uL Low 1.0 - 4.3 10*3/uL [facility] Lymphocytes/100 WBC (Bld) 1 % Low 15 - 45 % [facility] Metamyelocytes (Bld) [#/Vol] 0.1 10*3/uL High NINF - 0.0 10*3/uL [facility] Metamyelocytes/100 WBC (Bld) 1 % High NINF - 0 % [facility] Monocytes (Bld) [#/Vol] 0.0 10*3/uL 0.0 - 0.9 10*3/uL [facility] Monocytes/100 WBC (Bld) 0 % Low 5 - 13 % [facility] Neutrophils (Bld) [#/Vol] 5.2 10*3/uL 1.8 - 7.5 10*3/uL [facility] Poikilocytosis LM Ql (Bld) Rare Abnormal (none) [facility] RBC morphology finding Nom (Bld) abnormal [facility] Segmented neutrophils/100 WBC (Bld) 74 % 38 - 82 % [facility] MRSA DNA JOSSY+probe Ql (Nose) on 04-15-2024 Interpretation and review of laboratory results Abnormal [facility] mecA gene Not detected Not Detected [facility] Staphylococcus aureus Detected Abnormal Not Detected [facility] No Panel Informationon 04-15 Interpretation and review of laboratory results Abnormal [facility] Interpretation and review of laboratory results Abnormal [facility] Interpretation and review of laboratory results Abnormal [facility] Interpretation and review of laboratory results Abnormal [facility] Interpretation and review of laboratory results Normal [facility] Interpretation and review of laboratory results Abnormal [facility] Bands Manual 23 [facility] Interpretation and review of laboratory results Abnormal [facility] Lymphocytes Manual 1 [facility] Metamyelocytes Manual 1 [facility] Monocytes Manual 1 [facility] Neutrophils Manual 76 [facility] Interpretation and review of laboratory results Abnormal [facility] Interpretation and review of laboratory results Normal [facility] CV EPIPHANY [facility] Interpretation and review of laboratory results Abnormal [facility] Bands Manual 23 [facility] Basophils Manual 1 [facility] Interpretation and review of laboratory results Abnormal [facility] Lymphocytes Manual 1 [facility] Metamyelocytes Manual 1 [facility] Monocytes Manual 0 [facility] Neutrophils Manual 74 [facility] No Panel InformationOrdered By: Radha Clarke on 04-15-2024 Interpretation and review of laboratory results Abnormal [facility] Proteus species Detected Abnormal Not Detected [facility] No Panel InformationOrdered By: Gerber Cardona on 04-15-2024 P [place] 4 degrees [facility] [employer] Work Phone: ND Interval 154 ms [facility] [employer] Work Phone: QRS [place] 36 degrees [facility] [employer] Work Phone: QRSD Interval 90 ms [facility] [employer] Work Phone: QT Interval 336 ms [facility] [employer] Work Phone: QTC Interval 473 ms [facility] [employer] Work Phone: T Wave [place] 37 degrees [facility] [employer] Work Phone: [facility] [employer] Work Phone: Phosphate [Moles/Vol]on 04-04 Phosphate [Mass/Vol] 3.3 mg/dL 2.5 - 4 .5 mg/dL [facility] Procalcitonin [Mass/Vol]on 0 04-15-2024 Interpretation and review of laboratory results Abnormal [facility] Vital signsOrdered By: Gerber Cardona on 04-15-2024 Heart rate 119 /min bpm [facility] [employer] Work Phone: ABO and Rh group Confirm Nom (Bld)on 04-14-2024 ABO group Nom (Bld) O [facility] D Ag Ql (RBC) Negative [facility] ABO and Rh group panel (Bld) on 04-14-2024 ABO group Nom (Bld) O [facility] D Ag Ql (RBC) Negative [facility] CBC W Auto Differential pane l (Bld)Ordered By: Bev Santizo on 04-14-2024 Erythrocyte distribution width (RBC) [Ratio] 14.8 % 11.5 - 15.0 % [facility] Hematocrit (Bld) [Volume fraction] 47.3 % 40.0 - 52.0 % [facility] Hemoglobin (Bld) [Mass/Vol] 15.2 g/dL 13.0 - 18.0 g/dL [facility] Interpretation and review of laboratory results Abnormal [facility] MCH (RBC) [Entitic mass] 30.7 pg 26. 0 - 34.0 pg [facility] MCHC (RBC) [Mass/Vol] 32.1 % 30.5 - 36.0 % [facility] MCV (RBC) [Entitic vol] 95.6 fL 77.0 - 99.0 fL [facility] Platelet mean volume (Bld) [Entitic vol] 10.8 fL 9.0 - 12.7 fL [facility] Platelets (Bld) [#/Vol] 183 10*3/uL 140 - 440 10*3/uL [facility] RBC (Bld) [#/Vol] 4.95 10*6/uL 4.40 - 5.9 0 10*6/uL [facility] WBC (Bld) [#/Vol] 1.5 10*3/uL Critically low 3.6 - 10 .7 10*3/uL [facility] CT Abdomen WO contraston [facility] RADIOLOGY [facility] RAD[facility] Radiology Study observation (narrative) [facility] CT Abdomen WO contrastOrdere d By: Joe Monroy on 04-14-2024 [facility] Work Phone: Comprehensive metabolic 1998 panelon 04-14-2024 Albumin [Mass/Vol] 4.0 g/dL 3.5 - 5.0 g/dL [facility] ALP [Catalytic activity/Vol] 167 U/L High 38 - 126 U/L [facility] ALT [Catalytic activity/Vol] 22 U/L 0 - 49 U/L [facility] Anion gap [Moles/Vol] 16 mmol/L High 3 - 13 mmol/L [facility] AST [Catalytic activity/Vol] 25 U/L 15 - 46 U/L [facility] Bilirubin [Mass/Vol] 1.4 mg/dL High 0.2 - 1 .3 mg/dL [facility] Calcium [Mass/Vol] 9.0 mg/dL 8.4 - 10. 4 mg/dL [facility] Chloride [Moles/Vol] 102 mmol/L 98 - 10 7 mmol/L [facility] CO2 [Moles/Vol] 19 mmol/L Low 22 - 30 mmol/L [facility] Creatinine [Mass/Vol] 1.24 mg/dL 0.66 - 1.25 mg/dL [facility] GFR/1.73 sq M.predicted MDRD (S/P/Bld) [Vol rate/Area] 65.7 mL/min/{1.73_m2} - PINF [facility] th Glucose [Mass/Vol] 259 mg/dL High 70 - 100 mg/dL [facility] Potassium [Moles/Vol] 3.9 mmol/L 3.5 - 5.1 mmol/L [facility] Protein [Mass/Vol] 7.8 g/dL 6.3 - 8.2 g/dL [facility] Sodium [Moles/Vol] 137 mmol/L 135 - 145 mmol/L [facility] Urea nitrogen [Mass/Vol] 21 mg/dL High 9 - 20 mg/dL [facility] Laboratory - Chemistry and C hemistry - challengeOrdered By: Meliton Burrows on 04-14-2024 Lactate [Moles/Vol] 4.9 mmol/L Critically high 0.7 - 2.0 mmol/L [facility] Laboratory - Chemistry and C hemistry - challengeon 04-14-2024 Glucose [Mass/Vol] 223 mg/dL High 70 - 100 mg/dL [facility] Glucose [Mass/Vol] 210 mg/dL High 70 - 100 mg/dL [facility] Glucose [Mass/Vol] 226 mg/dL High 70 - 100 mg/dL [facility] Lipase [Catalytic activity/Vol] U/L Low 23 - 300 U/L [facility] Lactate [Moles/Vol] 3.9 mmol/L High 0.7 - 2. 0 mmol/L [facility] Troponin I.cardiac [Mass/Vol] ng/mL NINF - 0.034 ng/mL [facility] Beta hydroxybutyrate [Mass/Vol] 1.08 mg/dL 0.20 - 2.81 mg/dL [facility] Base excess Calc (BldV) [Moles/Vol] -8.0000 mmol/L Low -3.0 - 3.0 mmol/L [facility] CO2 (BldV) [Partial pressure] 47.4 mm[Hg] [facility] CO2 [Moles/Vol] 20.9 mmol/L Low 23.0 - 30.0 mmol/L [facility] HCO3 (Bld) [Moles/Vol] 19.5 mmol/L Low 21.0 - 30.0 mmol/L [facility] Oxygen (BldV) [Partial pressure] 40.8 mm[Hg] mm Hg [facility] pH (BldV) 7.232 [pH] Low 7.320 - 7.420 [facility] Lipase [Catalytic activity/Vol] 12 U/L Low 23 - 300 U/L [facility] Laboratory - Chemistry and C hemistry - challengeOrdered By: Elliot Martines on 04-14-2024 Lactate [Moles/Vol] 5.1 mmol/L Critically high 0.7 - 2.0 mmol/L [facility] Laboratory - Coagulationon 0 04-14-2024 PT Coag (Bld) [Time] 27.1 s High 9.0 - 1 2.0 s [facility] Laboratory - Hematology and Cell countson 04-14-2024 Hemoglobin (Bld) [Mass/Vol] 13.7 g/dL Screen only [facility] Band form neutrophils (Bld) [#/Vol] 0.3 10*3/uL High NINF - 0.0 10*3/uL [facility] Band form neutrophils/100 WBC (Bld) 17 % High NINF - 0 % [facility] Basophils (Bld) [#/Vol] 0.0 10*3/uL 0.0 - 0.2 10*3/uL [facility] Basophils/100 WBC (Bld) 1 % 0 - 2 % [facility] Lymphocytes (Bld) [#/Vol] 0.6 10*3/uL Low 1.0 - 4.3 10*3/uL [facility] Lymphocytes/100 WBC (Bld) 38 % 15 - 45 % [facility] Monocytes (Bld) [#/Vol] 0.0 10*3/uL 0.0 - 0.9 10*3/uL [facility] Monocytes/100 WBC (Bld) 1 % Low 5 - 13 % [facility] Neutrophils (Bld) [#/Vol] 0.9 10*3/uL Low 1.8 - 7.5 10*3/uL [facility] RBC morphology finding Nom (Bld) Normal [facility] Segmented neutrophils/100 WBC (Bld) 42 % 38 - 82 % [facility] Lipase [Catalytic activity/V ol]on 04-14-2024 Interpretation and review of laboratory results Abnormal [facility] No Panel InformationOrdered By: Meliton Burrows on 04-14-2024 Interpretation and review of laboratory results Abnormal [facility] No Panel Informationon 04-14 Interpretation and review of laboratory results Abnormal [facility] Interpretation and review of laboratory results Abnormal [facility] Interpretation and review of laboratory results Abnormal [facility] Interpretation and review of laboratory results Abnormal [facility] Interpretation and review of laboratory results Abnormal [facility] Interpretation and review of laboratory results Normal [facility] Interpretation and review of laboratory results Abnormal [facility] Source Of Oxygen Room Air [facility] He alth [facility] Bands Manual 17 [facility] Basophils Manual 1 [facility] He alth Interpretation and review of laboratory results Abnormal [facility] Lymphocytes Manual 38 [facility] Monocytes Manual 1 [facility] alth Neutrophils Manual 42 [facility] Interpretation and review of laboratory results Abnormal [facility] No Panel InformationOrdered By: Elliot Martines on 04-14-2024 Interpretation and review of laboratory results Abnormal [facility] PT Coag (Bld) [Time]on 04-14 INR Coag (PPP) [Relative time] 2.7 {INR} High 0.9 - 1.1 [facility] RF Kidney and Ureter and Uri nary bladder Views W contrast retrogradeon 04-14-2024 IMAGING Troponin I.cardiac [Mass/Vol ]on 04-14-2024 Interpretation and review of laboratory results Normal [facility] Vital signson 04-14-2024 Oxygen saturation in Venous blood 70.7 % [facility] XR Chest Single viewon 04-14 [facility] Radiology Study observation (narrative) [employer] alth XR Chest Single viewOrdered By: Geneva Lunsford on 04-14-2024 [facility] Work Phone: aPTT Coag (Bld) [Time]on aPTT Coag (PPP) [Time] 68.0 s High 20.0 - 30.5 s [employer] Telephone Encounteron 2023 [employer] Authentication Interface Message Text Called pt on his room number but unable to reach him or leave a message. I called nursing staff at the [place] where he lives and was able to leave a message with nursing regarding his MRI findings and that I would like to speak with him and recommendations to schedule visit with SCI rehab and spine surgery. Vaishali Pierre DO Normal [facility] [employer] [facility] Telephone Encounteron 2023 [employer] Authentication Interface Message Text Telephoned [place] pt at dinner and heel brusher states she cannot pull pt away from dinner. Normal [employer] Authentication Interface Message Text Called pt regarding his MRI, which showed: IMPRESSION: Acute-subacute sacral insufficiency fracture at S2. Postoperative and degenerative changes of the lumbar spine with linear granulation tissue at L2-3 and tethering of the cauda equina suggesting sequelae of chronic arachnoiditis. No evidence of osteomyelitis discitis or epidural abscess. [facility], but I was able [...] to the above findings.He does not have [employer] set up to message. Vaishali Pierre DO Normal [facility] MR L-SPINE W/+W/Oon 04-05-20 MR L-SPINE [...] or epidural abscess. MACRO: None [facility] [employer] [facility] [employer] [facility] MR Lumbar spine WO and W [...] History of lumbar fusion ORDERING PROVIDER: VAISHALI [facility] TECHNOLOGISTS NOTE: COMPARISON: Lumbar radiographs [...] osteomyelitis discitis or epidural abscess. MACRO: None [facility] Radiology Study observation (narrative) [facility] MR Lumbar spine WO and W con trast IVOrdered By: Hector Li on 04-05-2024 [employer] Phone: Patient Instructionson 02-09 [employer] Authentication Interface Message Text - xrays of the low back - can schedule the MRI of the lumbar spine - I recommend seeing one of my colleagues in the spinal cord injury clinic Normal [facility] [employer] [facility] Progress Noteson 02-10-2024 [employer] Authentication Interface Message Text Physical Medicine and [...] currently in a nursing facility, [facility]. Bladder management is via Santana catheter. [...] in the spinal cord injury clinic for alf SCI related tano (more content not included)... [facility] [employer] [facility] [employer] Authentication Interface Message Text Vitals not obtained per provider's instructions. Normal [facility] [employer] [facility] XR L-SPINE AP+LATERAL 2-3 EWSon 02-10-2024 XR L-SPINE AP+LATERAL 2-3 VIEWS EXAMINATION: XR L-SPINE AP+LATERAL 2-3 VIEWS 02/10/2024 02:27 PM CLINICAL HISTORY: lower thoracic, upper lumbar pareplegia, h/o lumbar surgery. Obtaining updated MRI. Need pre xray ASSOCIATED DIAGNOSIS: Paraplegia (HCC) History of lumbar fusion ORDERING PROVIDER: [employer] TECHNOLOGISTS NOTE: COMPARISON: None FINDINGS: There is [...] segments is considered. MACRO: None [facility] [employer] [facility] XR Lumbar spine AP and Later [place] 02-10-2024 EXAMINATION: XR L-SPINE AP+LATERAL 2-3 VIEWS 02/10/2024 02:27 PM CLINICAL HISTORY: lower thoracic, upper lumbar pareplegia, h/o lumbar surgery. Obtaining updated MRI. Need pre xray ASSOCIATED DIAGNOSIS: Paraplegia (HCC) History of lumbar fusion ORDERING PROVIDER: [employer] TECHNOLOGISTS NOTE: COMPARISON: None FINDINGS: There is [...] on L3 segments is considered. MACRO: None [facility] Radiology Study observation (narrative) [facility] XR Lumbar spine AP and Later alOrdered By: Juan William on 02-10-2024 [facility] Work Phone: Basophil percentageOrdered B y: Tab Dupont on 01-15-2024 Chloride [Moles/Vol] 109 mmol/L 98-107 [facility] Glucose [Mass/Vol] 122 mg/dL 74-106 [facility] Comment on above: Fasting Glucose resu lt from 100 to 125 mg/dL suggests IMPAIRED HOMEOSTASIS per A.D.A. criteria. Hemoglobin (Bld) [Mass/Vol] 13.0 g/dL 13.0-16.5 [facility] Potassium [Moles/Vol] 3.8 mmol/L 3.5-5.1 [facility] Sodium [Moles/Vol] 139 mmol/L 136-145 [facility] WBC (Bld) [#/Vol] 6.6 10*3/uL 4.4-11.0 [facility] Determination of erythrocyte mean corpuscular volume (MCV)Ordered By: Tab Dupont on 01-15-2024 MCV (RBC) [Entitic vol] 94.3 fL 80-94 [facility] Erythrocyte distribution wid th ratioOrdered By: Tab Dupont on 01-15-2024 Erythrocyte distribution width (RBC) [Ratio] 13.8 % 11.6-14.6 [facility] Erythrocyte distribution wid th standard deviationOrdered By: Tab Dupont on 01-15-2024 Erythrocyte distribution width (RBC) [Entitic vol] 48.0 fL 35.1-43.9 [facility] Hematocrit Auto (Bld) [Volum e fraction]Ordered By: Tab Dupont on 01-15-2024 Hematocrit (Bld) [Volume fraction] 39.5 % 40-54 [facility] Laboratory - Chemistry and C hemistry - challengeOrdered By: Tab Dupont on 01-15-2024 CO2 [Moles/Vol] 26.0 mmol/L 21.0-32.0 [facility] Urea nitrogen/Creatinine [Mass ratio] 21.6 mg/mg 10-20 [facility] - Hematology and Cell countsOrdered By: Tab Dupont on 01-15-2024 MCH (RBC) [Entitic mass] 31.0 pg 27.0-32.0 [facility] MCHC (RBC) [Mass/Vol] 32.9 g/dL 32-36 [facility] Platelet mean volume (Bld) [Entitic vol] 10.4 fL 6.2-12.0 [facility] Platelets (Bld) [#/Vol] 257 10*3/uL 150-450 [facility] No Panel InformationOrdered By: Tab Dupont on 01-15-2024 Estimated GFR (MDRD) Amer 236 mL/min >60 [facility] Comment on above: GFR Calc Estimated GFR (MDRD) Non-Af Amer 195 mL/min >60 [facility] Comment on above: Non- GFR Calc RBC Auto (Bld) [#/Vol]Ordere d By: Tab Dupont on 01-15-2024 RBC (Bld) [#/Vol] 4.19 10*6/uL 4.6-6.2 [facility] Serum or plasma calcium randall urement (mass/volume)Ordered By: Tab Dupont on 01-15-2024 Calcium [Mass/Vol] 8.7 mg/dL 8.5-10.1 [facility] Serum or plasma creatinine m easurement (mass/volume)Ordered By: Tab Dupont on 01-15-2024 Creatinine [Mass/Vol] 0.46 mg/dL 0.70-1.30 [facility] Comment on above: The validity of the calculated GFR & GFRAA in patients over 70 years has not been determined. Clinical correlation is essential. Serum or plasma urea nitroge n measurement (mass/volume)Ordered By: Tab Dupont on 01-15-2024 Urea nitrogen [Mass/Vol] 10 mg/dL 7-18 [facility] Thin prep Papanicolaou smear with manual screeningOrdered By: Tab Dupont on 01-15-2024 Thin prep Papanicolaou smear with manual screening 4 5-15 [facility] Basophil percentageOrdered B y: Tab Dupont on 01-07-2024 Chloride [Moles/Vol] 112 mmol/L 98-107 [facility] Glucose [Mass/Vol] 114 mg/dL 74-106 [facility] Comment on above: Fasting Glucose resu lt from 100 to 125 mg/dL suggests IMPAIRED HOMEOSTASIS per A.D.A. criteria. Hemoglobin (Bld) [Mass/Vol] 13.0 g/dL 13.0-16.5 [facility] Potassium [Moles/Vol] 3.8 mmol/L 3.5-5.1 [facility] Sodium [Moles/Vol] 140 mmol/L 136-145 [facility] WBC (Bld) [#/Vol] 8.1 10*3/uL 4.4-11.0 [facility] Determination of erythrocyte mean corpuscular volume (MCV)Ordered By: Tab Dupont on 01-07-2024 MCV (RBC) [Entitic vol] 92.6 fL 80-94 [facility] Erythrocyte distribution wid th ratioOrdered By: Tab Dupont on 01-07-2024 Erythrocyte distribution width (RBC) [Ratio] 13.8 % 11.6-14.6 [facility] Erythrocyte distribution wid th standard deviationOrdered By: Tab Dupont on 01-07-2024 Erythrocyte distribution width (RBC) [Entitic vol] 46.5 fL 35.1-43.9 [facility] Hematocrit Auto (Bld) [Volum e fraction]Ordered By: Tab Dupont on 01-07-2024 Hematocrit (Bld) [Volume fraction] 38.9 % 40-54 [facility] - Chemistry and C hemistry - challengeOrdered By: Tab Dupont on 01-07-2024 CO2 [Moles/Vol] 23.0 mmol/L 21.0-32.0 [facility] Urea nitrogen/Creatinine [Mass ratio] 25.5 mg/mg 10-20 [facility] - Hematology and Cell countsOrdered By: Tab Dupont on 01-07-2024 MCH (RBC) [Entitic mass] 31.0 pg 27.0-32.0 [facility] MCHC (RBC) [Mass/Vol] 33.4 g/dL 32-36 [facility] Platelet mean volume (Bld) [Entitic vol] 10.2 fL 6.2-12.0 [facility] Platelets (Bld) [#/Vol] 282 10*3/uL 150-450 [facility] No Panel InformationOrdered By: Tab Dupont on 01-07-2024 Estimated GFR (MDRD) Amer 257 mL/min >60 [facility] Comment on above: GFR Calc Estimated GFR (MDRD) Non-Af Amer 212 mL/min >60 [facility] Comment on above: Non- GFR Calc RBC Auto (Bld) [#/Vol]Ordere d By: Tab Dupont on 01-07-2024 RBC (Bld) [#/Vol] 4.20 10*6/uL 4.6-6.2 [facility] Serum or plasma calcium randall urement (mass/volume)Ordered By: Tab Dupont on 01-07-2024 Calcium [Mass/Vol] 8.5 mg/dL 8.5-10.1 [facility] Serum or plasma creatinine m easurement (mass/volume)Ordered By: Tab Dupont on 01-07-2024 Creatinine [Mass/Vol] 0.43 mg/dL 0.70-1.30 [facility] Comment on above: The validity of the calculated GFR & GFRAA in patients over 70 years has not been determined. Clinical correlation is essential. Serum or plasma urea nitroge n measurement (mass/volume)Ordered By: Tab Dupont on 01-07-2024 Urea nitrogen [Mass/Vol] 11 mg/dL 7-18 [facility] Thin prep Papanicolaou smear with manual screeningOrdered By: Tab Dupont on 01-07-2024 Thin prep Papanicolaou smear with manual screening 5 5-15 [facility] Whole blood hemoglobin A1c/t otal hemoglobin ratio (mass fraction)Ordered By: Tab Dupont on 01-04-2024 HbA1c (Bld) [Mass fraction] 6.3 % 3.8-5.6 [facility] Comment on above: Normal < 5.7 % Predi abetic 5.7 - 6.4 % Diabetic >or= 6.5 % Please note range changes. Basophil percentageOrdered B y: Tab Dupont on 12-31-2023 Chloride [Moles/Vol] 107 mmol/L 98-107 [facility] Glucose [Mass/Vol] 145 mg/dL 74-106 [facility] Comment on above: Fasting Glucose resu lt greater than or equal to 126 mg/dL suggests DIABETES MELLITUS per A.D.A. criteria. Hemoglobin (Bld) [Mass/Vol] 12.5 g/dL 13.0-16.5 [facility] Potassium [Moles/Vol] 3.4 mmol/L 3.5-5.1 [facility] Sodium [Moles/Vol] 136 mmol/L 136-145 [facility] WBC (Bld) [#/Vol] 7.7 10*3/uL 4.4-11.0 [facility] Determination of erythrocyte mean corpuscular volume (MCV)Ordered By: Tab Dupont on 12-31-2023 MCV (RBC) [Entitic vol] 93.0 fL 80-94 [facility] Erythrocyte distribution wid th ratioOrdered By: Tab Dupont on 12-31-2023 Erythrocyte distribution width (RBC) [Ratio] 14.1 % 11.6-14.6 [facility] Erythrocyte distribution wid th standard deviationOrdered By: Tab Dupont on 12-31-2023 Erythrocyte distribution width (RBC) [Entitic vol] 48.5 fL 35.1-43.9 [facility] Hematocrit Auto (Bld) [Volum e fraction]Ordered By: Tab Dupont on 12-31-2023 Hematocrit (Bld) [Volume fraction] 37.0 % 40-54 [facility] - Chemistry and C hemistry - challengeOrdered By: Tab Dupont on 12-31-2023 CO2 [Moles/Vol] 23.0 mmol/L 21.0-32.0 [facility] Urea nitrogen/Creatinine [Mass ratio] 29.1 mg/mg 10-20 [facility] - Hematology and Cell countsOrdered By: Tab Dupont on 12-31-2023 MCH (RBC) [Entitic mass] 31.4 pg 27.0-32.0 [facility] MCHC (RBC) [Mass/Vol] 33.8 g/dL 32-36 [facility] Platelet mean volume (Bld) [Entitic vol] 11.0 fL 6.2-12.0 [facility] Platelets (Bld) [#/Vol] 199 10*3/uL 150-450 [facility] No Panel InformationOrdered By: Tab Dupont on 12-31-2023 Estimated GFR (MDRD) Amer 299 mL/min >60 [facility] Comment on above: GFR Calc Estimated GFR (MDRD) Non-Af Amer 247 mL/min >60 [facility] Comment on above: Non- GFR Calc RBC Auto (Bld) [#/Vol]Ordere d By: Tab Dupont on 12-31-2023 RBC (Bld) [#/Vol] 3.98 10*6/uL 4.6-6.2 [facility] Serum or plasma calcium randall urement (mass/volume)Ordered By: Tab Dupont on 12-31-2023 Calcium [Mass/Vol] 8.6 mg/dL 8.5-10.1 [facility] Serum or plasma creatinine m easurement (mass/volume)Ordered By: Tab Dupont on 12-31-2023 Creatinine [Mass/Vol] 0.38 mg/dL 0.70-1.30 [facility] Comment on above: The validity of the calculated GFR & GFRAA in patients over 70 years has not been determined. Clinical correlation is essential. Serum or plasma urea nitroge n measurement (mass/volume)Ordered By: Tab Dupont on 12-31-2023 Urea nitrogen [Mass/Vol] 11 mg/dL 7-18 [facility] Thin prep Papanicolaou smear with manual screeningOrdered By: Tab Dupont on 12-31-2023 Thin prep Papanicolaou smear with manual screening 6 5-15 [facility] Basophil percentageOrdered B y: Tab Dupont on 12-04-2023 Basophil percentage 25-50 SEEN /hpf 0-5 [facility] Bilirubin Test strip Ql (U)O rdered By: Tab Dupont on 12-04-2023 Bilirubin Ql (U) Negative Negative [facility] Calcium oxalate crystals det ection in urine sediment by light microscopyOrdered By: Tab Dupont on 12-04-2023 Calcium oxalate crystals LM Ql (Urine sed) 2+ /hpf [facility] Culture, urineOrdered By: Vinh Lehman on 12-04-2023 Bacteria identified Cx Nom (U) ESBL Klebsiella pneumoniae pne [facility] Bacteria identified Cx Nom (U) Proteus mirabilis [facility] Ketones Test strip Ql (U)Ord ered By: Tab Dupont on 12-04-2023 Ketones Ql (U) 5 mg/dl Negative [facility] Magnesium ammonium phosphate crystal detectionOrdered By: Tab Dupont on 12-04-2023 Triple phosphate crystals LM Ql (Urine sed) 2+ /hpf [facility] Mucus LM Ql (Urine sed)Order ed By: Tab Dupont on 12-04-2023 Mucus Ql (Urine sed) 0 SEEN /hpf [facility] Nitrite Test strip Ql (U)Ord ered By: Tab Dupont on 12-04-2023 Nitrite Ql (U) Negative Negative [facility] No Panel InformationOrdered By: Tab Dupont on 12-04-2023 Urine RBC 10-25 SEEN /hpf 0-5 [facility] Protein Test strip Ql (U)Ord ered By: Tab Dupont on 12-04-2023 Protein Ql (U) 30 mg/dl Negative [facility] Squamous epithelial cells de tection in urine sediment by light microscopyOrdered By: Tab Dupont on 12-04-2023 Epithelial cells.squamous LM Ql (Urine sed) 0 SEEN /hpf 0-5 [facility] Urine blood detectionOrdered By: Tab Dupont on 12-04-2023 RBC Ql (U) 150 /ul Negative [facility] Urine clarityOrdered By: Regino Dupont on 12-04-2023 Clarity (U) Cloudy Clear [facility] Urine color determinationOrd ered By: Tab Dupont on 12-04-2023 Color (U) Yellow Yellow [facility] Urine glucose detectionOrder ed By: Tab Dupont on 12-04-2023 Glucose Ql (U) Normal mg/dl Normal [facility] Urine leukocyte esterase det ection by dipstickOrdered By: Tab Dupont on 12-04-2023 Leukocyte esterase Test strip Ql (U) 500 /ul Negative [facility] Urine pHOrdered By: Tab cordova on 12-04-2023 pH (U) 8.0 [pH] 5.0 - 8.0 [facility] Urine sediment bacteria coun t by microscopy (number/high power field)Ordered By: Tab Dupont on 12-04-2023 Bacteria LM.HPF (Urine sed) [#/Area] 3 /[HPF] None Seen [facility] Urine specific gravity measu rementOrdered By: Tab Dupont on 12-04-2023 Specific gravity (U) [Rel density] 1.015 1.002-1.030 [facility] Urine urobilinogen measureme ntOrdered By: Tab Dupont on 12-04-2023 Urobilinogen Ql (U) Normal mg/dl Normal [facility] Amorphous sediment detection in urine sediment by light microscopyOrdered By: Tab Dupont on 10-25-2023 Amorphous sediment LM Ql (Urine sed) 3+ [facility] Basophil percentageOrdered B y: Tab Dupont on 10-25-2023 Basophil percentage 0-5 SEEN /hpf 0-5 [facility] Bilirubin Test strip Ql (U)O rdered By: Tab Dupont on 10-25-2023 Bilirubin Ql (U) Negative Negative [facility] Culture, urineOrdered By: Vinh Lehman on 10-25-2023 Bacteria identified Cx Nom (U) ESBL Klebsiella pneumoniae pne [facility] Bacteria identified Cx Nom (U) Proteus mirabilis [facility] Ketones Test strip Ql (U)Ord ered By: Tab Dupont on 10-25-2023 Ketones Ql (U) Negative Negative [facility] Mucus LM Ql (Urine sed)Order ed By: Tab Dupont on 10-25-2023 Mucus Ql (Urine sed) 0 SEEN /hpf [facility] Nitrite Test strip Ql (U)Ord ered By: Tab Dupont on 10-25-2023 Nitrite Ql (U) Negative Negative [facility] No Panel InformationOrdered By: Tab Dupont on 10-25-2023 Urine RBC 0-5 SEEN /hpf 0-5 [facility] Protein Test strip Ql (U)Ord ered By: Tab Dupont on 10-25-2023 Protein Ql (U) 500 mg/dl Negative [facility] Squamous epithelial cells de tection in urine sediment by light microscopyOrdered By: Tab Dupont on 10-25-2023 Epithelial cells.squamous LM Ql (Urine sed) 0 SEEN /hpf 0-5 [facility] Urine blood detectionOrdered By: Tab Dupont on 10-25-2023 RBC Ql (U) 150 /ul Negative [facility] Urine clarityOrdered By: Regino Dupont on 10-25-2023 Clarity (U) Cloudy Clear [facility] Urine color determinationOrd ered By: Tab Dupont on 10-25-2023 Color (U) YELLOW Yellow [facility] Urine glucose detectionOrder ed By: Tab Dupont on 10-25-2023 Glucose Ql (U) Normal mg/dl Normal [facility] Urine leukocyte esterase det ection by dipstickOrdered By: Tab Dupont on 10-25-2023 Leukocyte esterase Test strip Ql (U) 500 /ul Negative [facility] Urine pHOrdered By: Tab cordova on 10-25-2023 pH (U) 8.0 [pH] 5.0 - 8.0 [facility] Urine sediment bacteria coun t by microscopy (number/high power field)Ordered By: Tab Dupont on 10-25-2023 Bacteria LM.HPF (Urine sed) [#/Area] 1 /[HPF] None Seen [facility] Urine sediment uric acid cry stal count by microscopy (number/high power field)Ordered By: Tab Dupont on 10-25-2023 Urate crystals LM.HPF (Urine sed) [#/Area] 3 /[HPF] [facility] Urine specific gravity measu rementOrdered By: Tab Dupont on 10-25-2023 Specific gravity (U) [Rel density] 1.010 1.002-1.030 [facility] Urine urobilinogen measureme ntOrdered By: Tab Dupont on 10-25-2023 Urobilinogen Ql (U) Normal mg/dl Normal [facility] Whole blood hemoglobin A1c/t otal hemoglobin ratio (mass fraction)Ordered By: Tab Dupont on 08-10-2023 HbA1c (Bld) [Mass fraction] 6.2 % 3.8-5.6 [facility] Comment on above: Normal < 5.7 % Predi abetic 5.7 - 6.4 % Diabetic >or= 6.5 % Please note range changes. Whole blood hemoglobin A1c/t otal hemoglobin ratio (mass fraction)Ordered By: Tab Dupont on 08-07-2023 HbA1c (Bld) [Mass fraction] 6.2 % 3.8-5.6 [facility] Comment on above: Normal < 5.7 % Predi abetic 5.7 - 6.4 % Diabetic >or= 6.5 % Please note range changes. Amorphous sediment detection in urine sediment by light microscopyOrdered By: Tab Dupont on 07-31-2023 Amorphous sediment LM Ql (Urine sed) 2+ [facility] Basophil percentageOrdered B y: Tab Dupont on 07-31-2023 Basophil percentage 50-100 SEEN /hpf 0-5 [facility] Bilirubin Test strip Ql (U)O rdered By: Tab Dupont on 07-31-2023 Bilirubin Ql (U) Negative Negative [facility] Culture, urineOrdered By: Vinh Lehman on 07-31-2023 Bacteria identified Cx Nom (U) ESBL Klebsiella pneumoniae pne [facility] Bacteria identified Cx Nom (U) Proteus mirabilis [facility] Ketones Test strip Ql (U)Ord ered By: Tab Dupont on 07-31-2023 Ketones Ql (U) Negative Negative [facility] Mucus LM Ql (Urine sed)Order ed By: Tab Dupont on 07-31-2023 Mucus Ql (Urine sed) 0 SEEN /hpf [facility] Nitrite Test strip Ql (U)Ord ered By: Tab Dupont on 07-31-2023 Nitrite Ql (U) Negative Negative [facility] Protein Test strip Ql (U)Ord ered By: Tab Dupont on 07-31-2023 Protein Ql (U) 30 mg/dl Negative [facility] Squamous epithelial cells de tection in urine sediment by light microscopyOrdered By: Tab Dupont on 07-31-2023 Epithelial cells.squamous LM Ql (Urine sed) 0 SEEN /hpf 0-5 [facility] Urine blood detectionOrdered By: Tab Dupont on 07-31-2023 RBC Ql (U) 250 /ul Negative [facility] RBC Ql (U) 10-25 SEEN /hpf 0-5 [facility] Urine clarityOrdered By: Regino Dupont on 07-31-2023 Clarity (U) Cloudy Clear [facility] Urine color determinationOrd ered By: Tab Dupont on 07-31-2023 Color (U) Yellow Yellow [facility] Urine glucose detectionOrder ed By: Tab Dupont on 07-31-2023 Glucose Ql (U) Normal mg/dl Normal [facility] Urine leukocyte esterase det ection by dipstickOrdered By: Tab Dupont on 07-31-2023 Leukocyte esterase Test strip Ql (U) 500 /ul Negative [facility] Urine pHOrdered By: Tab cordova on 07-31-2023 pH (U) 7.0 [pH] 5.0 - 8.0 [facility] Urine sediment bacteria coun t by microscopy (number/high power field)Ordered By: Tab Dupont on 07-31-2023 Bacteria LM.HPF (Urine sed) [#/Area] 0 /[HPF] None Seen [facility] Urine specific gravity measu rementOrdered By: Tab Dupont on 07-31-2023 Specific gravity (U) [Rel density] 1.010 1.002-1.030 [facility] Urobilinogen Auto test strip Ql (U)Ordered By: Tab Dupont on 07-31-2023 Urobilinogen Ql (U) Normal mg/dl Normal [facility] Basophil percentageOrdered B y: Tab Dupont on 06-29-2023 Chloride [Moles/Vol] 108 mmol/L 98-107 [facility] Glucose [Mass/Vol] 169 mg/dL 74-106 [facility] Comment on above: Fasting Glucose resu lt greater than or equal to 126 mg/dL suggests DIABETES MELLITUS per A.D.A. criteria. Potassium [Moles/Vol] 3.4 mmol/L 3.5-5.1 [facility] Sodium [Moles/Vol] 139 mmol/L 136-145 [facility] WBC (Bld) [#/Vol] 6.4 10*3/uL 4.4-11.0 [facility] Blood erythrocytes count (nu mber/volume)Ordered By: Tab Dupont on 06-29-2023 RBC (Bld) [#/Vol] 4.05 10*6/uL 4.6-6.2 [facility] Blood hemoglobin measurement (mass/volume)Ordered By: Tab Dupont on 06-29-2023 Hemoglobin (Bld) [Mass/Vol] 12.6 g/dL 13.0-16.5 [facility] Blood platelet mean volumeOr dered By: Tab Dupont on 06-29-2023 Platelet mean volume (Bld) [Entitic vol] 10.0 fL 6.2-12.0 [facility] Determination of erythrocyte mean corpuscular volume (MCV)Ordered By: Tab Dupont on 06-29-2023 MCV (RBC) [Entitic vol] 97.3 fL 80-94 [facility] Hematocrit Auto (Bld) [Volum e fraction]Ordered By: Tab Dupont on 06-29-2023 Hematocrit (Bld) [Volume fraction] 39.4 % 40-54 [facility] Laboratory - Chemistry and C hemistry - challengeOrdered By: Tab Dupont on 06-29-2023 CO2 [Moles/Vol] 24.0 mmol/L 21.0-32.0 [facility] Urea nitrogen/Creatinine [Mass ratio] 28.8 mg/mg 10-20 [facility] Laboratory - Hematology and Cell countsOrdered By: Tab Dupont on 06-29-2023 Erythrocyte distribution width (RBC) [Entitic vol] 48.6 fL 35.1-43.9 [facility] Erythrocyte distribution width (RBC) [Ratio] 13.6 % 11.6-14.6 [facility] MCH (RBC) [Entitic mass] 31.1 pg 27.0-32.0 [facility] MCHC Auto (RBC) [Mass/Vol]Or dered By: Tab Dupont on 06-29-2023 MCHC (RBC) [Mass/Vol] 32.0 g/dL 32-36 [facility] No Panel InformationOrdered By: Tab Dupont on 06-29-2023 Estimated GFR (MDRD) Amer 207 mL/min >60 [facility] Comment on above: GFR Calc Estimated GFR (MDRD) Non-Af Amer 171 mL/min >60 [facility] Comment on above: Non- GFR Calc Platelets bldOrdered By: Regino Dupont on 06-29-2023 Platelets (Bld) [#/Vol] 243 10*3/uL 150-450 [facility] Serum or plasma calcium randall urement (mass/volume)Ordered By: Tab Dupont on 06-29-2023 Calcium [Mass/Vol] 8.3 mg/dL 8.5-10.1 [facility] Serum or plasma creatinine m easurement (mass/volume)Ordered By: Tab Dupont on 06-29-2023 Creatinine [Mass/Vol] 0.52 mg/dL 0.70-1.30 [facility] Comment on above: The validity of the calculated GFR & GFRAA in patients over 70 years has not been determined. Clinical correlation is essential. Serum or plasma urea nitroge n measurement (mass/volume)Ordered By: Tab Dupont on 06-29-2023 Urea nitrogen [Mass/Vol] 15 mg/dL 7-18 [facility] Thin prep Papanicolaou smear with manual screeningOrdered By: Tab Dupont on 06-29-2023 Thin prep Papanicolaou smear with manual screening 7 5-15 [facility] Basophil percentageOrdered B y: Tab Dupont on 06-01-2023 Chloride [Moles/Vol] 112 mmol/L 98-107 [facility] Glucose [Mass/Vol] 133 mg/dL 74-106 [facility] Comment on above: Fasting Glucose resu lt greater than or equal to 126 mg/dL suggests DIABETES MELLITUS per A.D.A. criteria. Potassium [Moles/Vol] 3.8 mmol/L 3.5-5.1 [facility] Sodium [Moles/Vol] 141 mmol/L 136-145 [facility] WBC (Bld) [#/Vol] 6.8 10*3/uL 4.4-11.0 [facility] Blood erythrocytes count (nu mber/volume)Ordered By: Tab Dupont on 06-01-2023 RBC (Bld) [#/Vol] 3.96 10*6/uL 4.6-6.2 [facility] Blood hemoglobin measurement (mass/volume)Ordered By: Tab Dupont on 06-01-2023 Hemoglobin (Bld) [Mass/Vol] 12.7 g/dL 13.0-16.5 [facility] Blood platelet mean volumeOr dered By: Tab Dupont on 06-01-2023 Platelet mean volume (Bld) [Entitic vol] 10.1 fL 6.2-12.0 [facility] Determination of erythrocyte mean corpuscular volume (MCV)Ordered By: Tab Dupont on 06-01-2023 MCV (RBC) [Entitic vol] 99.7 fL 80-94 [facility] Hematocrit Auto (Bld) [Volum e fraction]Ordered By: Tab Dupont on 06-01-2023 Hematocrit (Bld) [Volume fraction] 39.5 % 40-54 [facility] - Chemistry and C hemistry - challengeOrdered By: Tab Dupont on 06-01-2023 CO2 [Moles/Vol] 25.0 mmol/L 21.0-32.0 [facility] Urea nitrogen/Creatinine [Mass ratio] 29.2 mg/mg 10-20 [facility] - Hematology and Cell countsOrdered By: Tab Dupont on 06-01-2023 Erythrocyte distribution width (RBC) [Entitic vol] 54.3 fL 35.1-43.9 [facility] Erythrocyte distribution width (RBC) [Ratio] 14.6 % 11.6-14.6 [facility] MCH (RBC) [Entitic mass] 32.1 pg 27.0-32.0 [facility] MCHC Auto (RBC) [Mass/Vol]Or dered By: Tab Dupont on 06-01-2023 MCHC (RBC) [Mass/Vol] 32.2 g/dL 32-36 [facility] No Panel InformationOrdered By: Tab Dupont on 06-01-2023 Estimated GFR (MDRD) Amer 227 mL/min >60 [facility] Comment on above: GFR Calc Estimated GFR (MDRD) Non-Af Amer 188 mL/min >60 [facility] Comment on above: Non- GFR Calc Platelets bldOrdered By: Regino Dupont on 06-01-2023 Platelets (Bld) [#/Vol] 274 10*3/uL 150-450 [facility] Serum or plasma calcium randall urement (mass/volume)Ordered By: Tab Dupont on 06-01-2023 Calcium [Mass/Vol] 8.5 mg/dL 8.5-10.1 [facility] Serum or plasma creatinine m easurement (mass/volume)Ordered By: Tab Dupont on 06-01-2023 Creatinine [Mass/Vol] 0.48 mg/dL 0.70-1.30 [facility] Comment on above: The validity of the calculated GFR & GFRAA in patients over 70 years has not been determined. Clinical correlation is essential. Serum or plasma urea nitroge n measurement (mass/volume)Ordered By: Tab Dupont on 06-01-2023 Urea nitrogen [Mass/Vol] 14 mg/dL 7-18 [facility] Thin prep Papanicolaou smear with manual screeningOrdered By: Tab Dupont on 06-01-2023 Thin prep Papanicolaou smear with manual screening 4 5-15 [facility] Urinalysis complete panel (U )Ordered By: Darya Nazario on 05-23-2023 Bacteria LM.HPF (Urine sed) [#/Area] Moderate Abnormal Negative /HPF [facility] Bilirubin Ql (U) Negative Negative mg/dL [facility] Clarity (U) Extra Turbid Abnormal Clear [facility] Color (U) Yellow Lt. Yellow [facility] Epithelial cells.squamous LM.HPF (Urine sed) [#/Area] 0-2 [facility] Glucose Ql (U) Normal Normal (<70) mg/dL [facility] Hemoglobin Ql (U) 0.1 mg/dL Abnormal Negative [facility] Interpretation and review of laboratory results Abnormal [facility] Ketones (U) [Mass/Vol] Negative Negat mary grace mg/dL [facility] Leukocyte clumps LM.HPF (Urine sed) [#/Area] Moderate Abnormal Negative /HPF [facility] Leukocyte esterase Test strip Ql (U) 500 Abnormal Negative Da/uL [facility] Mucus LM.HPF (Urine sed) [#/Area] Few Negative /LPF [facility] Nitrite Ql (U) Positive Abnormal Negative [facility] th pH (U) 8.0 [pH] 5.0 - 8.0 pH [facility] Protein (U) [Mass/Vol] 100 mg/dL Abnormal Negative [facility] RBC LM.HPF (Urine sed) [#/Area] /[HPF] Abnormal [facility] Specific gravity (U) [Rel density] 1.014 1.005 - 1.030 [facility] Triple phosphate crystals LM.HPF (Urine sed) [#/Area] Moderate Abnormal Negative /HPF [facility] Urobilinogen (U) [Mass/Vol] Normal Normal (0-1) mg/dL [facility] WBC LM.HPF (Urine sed) [#/Area] /[HPF] Abnormal [facility] Basophil percentageOrdered B y: Tab Dupont on 05-04-2023 Bilirubin [Mass/Vol] 0.20 mg/dL 0.20-1.00 [facility] Comment on above: For patients on eltr ombopag therapy, use of Dimension [place] TBIL is not recommended. Chloride [Moles/Vol] 109 mmol/L 98-107 [facility] Glucose [Mass/Vol] 183 mg/dL 74-106 [facility] Comment on above: Fasting Glucose resu lt greater than or equal to 126 mg/dL suggests DIABETES MELLITUS per A.D.A. criteria. Potassium [Moles/Vol] 4.0 mmol/L 3.5-5.1 [facility] Protein [Mass/Vol] 6.0 g/dL 6.4-8.2 [facility] Sodium [Moles/Vol] 139 mmol/L 136-145 [facility] WBC (Bld) [#/Vol] 6.7 10*3/uL 4.4-11.0 [facility] Blood erythrocytes count (nu mber/volume)Ordered By: Tab Dupont on 05-04-2023 RBC (Bld) [#/Vol] 3.31 10*6/uL 4.6-6.2 [facility] Blood hemoglobin measurement (mass/volume)Ordered By: Tab Dupont on 05-04-2023 Hemoglobin (Bld) [Mass/Vol] 10.2 g/dL 13.0-16.5 [facility] Blood platelet mean volumeOr dered By: Tab Dupont on 05-04-2023 Platelet mean volume (Bld) [Entitic vol] 10.2 fL 6.2-12.0 [facility] Determination of erythrocyte mean corpuscular volume (MCV)Ordered By: Tab Dupont on 05-04-2023 MCV (RBC) [Entitic vol] 99.1 fL 80-94 [facility] Hematocrit Auto (Bld) [Volum e fraction]Ordered By: Tab Dupont on 05-04-2023 Hematocrit (Bld) [Volume fraction] 32.8 % 40-54 [facility] - Chemistry and C hemistry - challengeOrdered By: Tab Dupont on 05-04-2023 ALP [Catalytic activity/Vol] 104 U/L 45-117 [facility] ALT [Catalytic activity/Vol] 17 U/L 16-61 [facility] CO2 [Moles/Vol] 26.0 mmol/L 21.0-32.0 [facility] Globulin (S) [Mass/Vol] 3.8 g/dL 2.2-4.2 [facility] Urea nitrogen/Creatinine [Mass ratio] 21.9 mg/mg 10-20 [facility] - Hematology and Cell countsOrdered By: Tab Dupont on 05-04-2023 Erythrocyte distribution width (RBC) [Entitic vol] 48.8 fL 35.1-43.9 [facility] Erythrocyte distribution width (RBC) [Ratio] 13.5 % 11.6-14.6 [facility] MCH (RBC) [Entitic mass] 30.8 pg 27.0-32.0 [facility] MCHC Auto (RBC) [Mass/Vol]Or dered By: Tab Dupont on 05-04-2023 MCHC (RBC) [Mass/Vol] 31.1 g/dL 32-36 [facility] No Panel InformationOrdered By: Tab Dupont on 05-04-2023 Estimated GFR (MDRD) Amer 195 mL/min >60 [facility] Comment on above: GFR Calc Estimated GFR (MDRD) Non-Af Amer 161 mL/min >60 [facility] Comment on above: Non- GFR Calc Platelets bldOrdered By: Regino Dupont on 05-04-2023 Platelets (Bld) [#/Vol] 290 10*3/uL 150-450 [facility] Serum or plasma albumin randall urement (mass/volume)Ordered By: Tab Dupont on 05-04-2023 Albumin [Mass/Vol] 2.2 g/dL 3.2-5.0 [facility] Serum or plasma albumin/glob ulin mass ratioOrdered By: Tab Dupont on 05-04-2023 Albumin/Globulin [Mass ratio] 0.6 {ratio} 0.9-2.4 [facility] Serum or plasma calcium randall urement (mass/volume)Ordered By: Tab Dupont on 05-04-2023 Calcium [Mass/Vol] 8.4 mg/dL 8.5-10.1 [facility] Serum or plasma creatinine m easurement (mass/volume)Ordered By: Tab Dupont on 05-04-2023 Creatinine [Mass/Vol] 0.55 mg/dL 0.70-1.30 [facility] Comment on above: The validity of the calculated GFR & GFRAA in patients over 70 years has not been determined. Clinical correlation is essential. Serum or plasma urea nitroge n measurement (mass/volume)Ordered By: Tab Dupont on 05-04-2023 Urea nitrogen [Mass/Vol] 12 mg/dL 7-18 [facility] Thin prep Papanicolaou smear with manual screeningOrdered By: Tab Dupont on 05-04-2023 Thin prep Papanicolaou smear with manual screening 16 U/L 15-37 [facility] Thin prep Papanicolaou smear with manual screening 4 5-15 [facility] Basophil percentageOrdered B y: Tab Dupont on 03-25-2023 Bilirubin [Mass/Vol] 0.30 mg/dL 0.20-1.00 [facility] Comment on above: For patients on eltr ombopag therapy, use of Dimension [place] TBIL is not recommended. Chloride [Moles/Vol] 107 mmol/L 98-107 [facility] Cholesterol [Mass/Vol] 163 mg/dL <200 [facility] Comment on above: <200 mg/dL Desirable 200-240 mg/dL Borderline >240 mg/dL High Risk Glucose [Mass/Vol] 119 mg/dL 74-106 [facility] Comment on above: Fasting Glucose resu lt from 100 to 125 mg/dL suggests IMPAIRED HOMEOSTASIS per A.D.A. criteria. Potassium [Moles/Vol] 3.6 mmol/L 3.5-5.1 [facility] Protein [Mass/Vol] 6.7 g/dL 6.4-8.2 [facility] Sodium [Moles/Vol] 137 mmol/L 136-145 [facility] Triglyceride [Mass/Vol] 139 mg/dL <199 [facility] Comment on above: The drugs N-Acetylcy steine and Metamizole may falsely depress this assay.Serum Triglycerides Reference Interval Normal <150 mg/dL Borderline high 150 - 199 mg/dL High 200 - 499 mg/dL Very High > or = 500 mg/dL WBC (Bld) [#/Vol] 6.8 10*3/uL 4.4-11.0 [facility] Blood erythrocytes count (nu mber/volume)Ordered By: Tab Dupont on 03-25-2023 RBC (Bld) [#/Vol] 3.71 10*6/uL 4.6-6.2 [facility] Blood hemoglobin measurement (mass/volume)Ordered By: Tab Dupont on 03-25-2023 Hemoglobin (Bld) [Mass/Vol] 11.6 g/dL 13.0-16.5 [facility] Blood platelet mean volumeOr dered By: Tab Dupont on 03-25-2023 Platelet mean volume (Bld) [Entitic vol] 9.9 fL 6.2-12.0 [facility] Determination of erythrocyte mean corpuscular volume (MCV)Ordered By: Tab Dupont on 03-25-2023 MCV (RBC) [Entitic vol] 99.5 fL 80-94 [facility] Hematocrit Auto (Bld) [Volum e fraction]Ordered By: Tab Dupont on 03-25-2023 Hematocrit (Bld) [Volume fraction] 36.9 % 40-54 [facility] - Chemistry and C hemistry - challengeOrdered By: Tab Dupont on 03-25-2023 ALP [Catalytic activity/Vol] 121 U/L 45-117 [facility] ALT [Catalytic activity/Vol] 18 U/L 16-61 [facility] CO2 [Moles/Vol] 23.0 mmol/L 21.0-32.0 [facility] Globulin (S) [Mass/Vol] 4.3 g/dL 2.2-4.2 [facility] Urea nitrogen/Creatinine [Mass ratio] 22.6 mg/mg 10-20 [facility] - Hematology and Cell countsOrdered By: Tab Dupont on 03-25-2023 Erythrocyte distribution width (RBC) [Entitic vol] 50.3 fL 35.1-43.9 [facility] Erythrocyte distribution width (RBC) [Ratio] 13.5 % 11.6-14.6 [facility] MCH (RBC) [Entitic mass] 31.3 pg 27.0-32.0 [facility] MCHC Auto (RBC) [Mass/Vol]Or dered By: Tab Dupont on 03-25-2023 MCHC (RBC) [Mass/Vol] 31.4 g/dL 32-36 [facility] No Panel InformationOrdered By: Tab Dupont on 03-25-2023 Estimated GFR (MDRD) Amer 250 mL/min >60 [facility] Comment on above: GFR Calc Estimated GFR (MDRD) Non-Af Amer 207 mL/min >60 [facility] Comment on above: Non- GFR Calc Prostate Specific Antigen Screen 0.59 ng/mL 0.00-4.00 [facility] Comment on above: This test was perfor med using the TPSA assay method for [employer] chemistry system. Values obtained with differentassay methods cannot be used interchangably.When changing PSA assays in the course of monitoring apatient, additional sequential testing should be carriedout to confirm baseline values. Thyroid Stimulating Hormone (TSH) 3.33 uIU/mL 0.358-3.74 [facility] Platelets bldOrdered By: Regino Dupont on 03-25-2023 Platelets (Bld) [#/Vol] 301 10*3/uL 150-450 [facility] Serum or plasma albumin randall urement (mass/volume)Ordered By: Tab Dupont on 03-25-2023 Albumin [Mass/Vol] 2.4 g/dL 3.2-5.0 [facility] Serum or plasma albumin/glob ulin mass ratioOrdered By: Tab Dupont on 03-25-2023 Albumin/Globulin [Mass ratio] 0.6 {ratio} 0.9-2.4 [facility] Serum or plasma calcium randall urement (mass/volume)Ordered By: Tab Dupont on 03-25-2023 Calcium [Mass/Vol] 8.7 mg/dL 8.5-10.1 [facility] Serum or plasma cholesterol in HDL measurement (mass/volume)Ordered By: Tab Dupont on 03-25-2023 Cholesterol in HDL [Mass/Vol] 27 mg/dL >40 [facility] Comment on above: The drugs N-Acetylcy steine and Metamizole may falsely depress this assay. Reference Range HDL <40 mg/dL Low HDL Cholesterol HDL >or= 60 mg/dL High HDL Cholesterol Serum or plasma cholesterol in VLDL measurement (mass/volume)Ordered By: Tab Dupont on 03-25-2023 Cholesterol in VLDL [Mass/Vol] 28 mg/dL 5-40 [facility] Serum or plasma creatinine m easurement (mass/volume)Ordered By: Tab Dupont on 03-25-2023 Creatinine [Mass/Vol] 0.44 mg/dL 0.70-1.30 [facility] Comment on above: The validity of the calculated GFR & GFRAA in patients over 70 years has not been determined. Clinical correlation is essential. Serum or plasma low density lipoprotein (LDL) cholesterol measurement (mass/volume)Ordered By: Tab Dupont on 03-25-2023 Cholesterol in LDL [Mass/Vol] 108 mg/dL 0-130 [facility] Serum or plasma urea nitroge n measurement (mass/volume)Ordered By: Tab Dupont on 03-25-2023 Urea nitrogen [Mass/Vol] 10 mg/dL 7-18 [facility] Thin prep Papanicolaou smear with manual screeningOrdered By: Tab Dupont on 03-25-2023 Thin prep Papanicolaou smear with manual screening 13 U/L 15-37 [facility] Thin prep Papanicolaou smear with manual screening 7 5-15 [facility] CNPNon 12-02-2021 CNPN Telephone (HCSIND) GIVEN,ANMOL ([id number]) 1960 M Date Time Provider Department 12/02/21 [...] (Blistex) - sodium chloride 0.65 % 2 [place] (AYR, OCEAN) - saliva substitute combo no.9 [...] bacteremia [R78.81, B95.62] 11/27/2021 Encounter Status:Closed by IVTALY SMALLWOOD on 12/02/21 [facility] Telephone (HCSIND) ANMOL REYNOLDS ([id number]) 1960 M Date Time Provider Department 12/02/21 VITALY SMALLWOOD HCSIND During your visit today, we recorded the following information about you: Vitaly Smallwood LPN 12/02/2021 9:05 AM Signed Ambrosio Monroy, DO Please advise if you are agreeable to signing and following for [facility] services? Our Clinicians will be sending the Plan of Care to you for review and approval. They will reach out for any appropriate orders required to provide home care services for the patient. We are not able to initiate [facility] services without a following provider. Thank you [...] (Blistex) - sodium chloride 0.65 % 2 [place] (AYR, OCEAN) - saliva substitute combo no.9 [...] Of Date 12/02/2021 Noted Resolved NO SHOW [[id number]] 08/31/2013 05/29/2020 Perineal abscess [L02.215] 06/13/2019 05/29/2020 [...] WALLACE SMALLWOOD (more content not included)... [facility] ANMOL REYNOLDS ([id number]) 1960 M Date Time Provider Department 12/02/21 [...] (Blistex) - sodium chloride 0.65 % 2 [place] (AYR, OCEAN) - saliva substitute combo no.9 [...] Status:Closed by VITALY SMALLWOOD on 12/02/21 Normal [facility] ANTISMOOTH MUSCLE ABon 10-15 ANTISMOOTH MUSCLE AB Negative Normal NEGATIVE [facility] Comment on above: Performed By: #### A SMAB #### [facility] [address] [place] [address] SEEMA-WITH REFLEX TO ENAon SEEMA WITH REFLEX TO AYDEE Negative Normal NEGATIVE [facility] Comment on above: Result Comment: The Antinuclear Antibody (SEEMA) test was performed using indirect immunofluorescence assay with HEp-2 cells slide. Performed By: #### A NA2 #### [facility] [address] [place] [address] COMPREHENSIVE PANELon 2021 Glucose [Mass/Vol] 916 mg/dL Critically high 74 - 99 [facility] Comment on above: Order Comment: READ BACK CRIT GLU TO [place], 10/12/2021 00:08 Result Comment: READ BACK CRIT GLU TO [place], 10/12/2021 00:08 Performed By: #### C MP #### [facility] [address] [place] [address] Albumin [Mass/Vol] 3.9 g/dL Normal 3.4 - 5.0 [facility] Comment on above: Order Comment: READ BACK CRIT GLU TO [place], 10/12/2021 00:08 Performed By: #### C MP #### [facility] [address] [place] [address] ALP [Catalytic activity/Vol] 235 U/L High 33 - 136 [facility] Comment on above: Order Comment: READ BACK CRIT GLU TO [place], 10/12/2021 00:08 Performed By: #### C MP #### [facility] [address] [place] [address] ALT [Catalytic activity/Vol] 192 U/L High 10 - 52 [facility] Comment on above: Order Comment: READ BACK CRIT GLU TO [place], 10/12/2021 00:08 Result Comment: Blanca ents treated with Sulfasalazine may generate falsely decreased results for ALT. Performed By: #### C MP #### [facility] [address] [place] [address] Anion gap [Moles/Vol] 16 mmol/L Normal 10 - 20 [facility] Comment on above: Order Comment: READ BACK CRIT GLU TO [place], 10/12/2021 00:08 Performed By: #### C MP #### [facility] [address] [place] [address] AST [Catalytic activity/Vol] 141 U/L High 9 - 39 [facility] Comment on above: Order Comment: READ BACK CRIT GLU TO [place], 10/12/2021 00:08 Performed By: #### C MP #### [facility] [address] [place] [address] Bilirubin [Mass/Vol] 0.7 mg/dL Normal 0.0 - 1.2 [facility] Comment on above: Order Comment: READ BACK CRIT GLU TO [place], 10/12/2021 00:08 Performed By: #### C MP #### [facility] [address] [place] [address] Calcium [Mass/Vol] 9.0 mg/dL Normal 8.6 - 10.6 [facility] Comment on above: Order Comment: READ BACK CRIT GLU TO [place], 10/12/2021 00:08 Performed By: #### C MP #### [facility] [address] [place] [address] Chloride [Moles/Vol] 91 mmol/L Low 98 - 107 [facility] Comment on above: Order Comment: READ BACK CRIT GLU TO [place], 10/12/2021 00:08 Performed By: #### C MP #### [facility] [address] [place] [address] Creatinine [Mass/Vol] 0.62 mg/dL Normal 0.50 - 1.30 [facility] Comment on above: Order Comment: READ BACK CRIT GLU TO [place], 10/12/2021 00:08 Performed By: #### C MP #### [facility] [address] [place] [address] eGFR MALE >90 Normal >90 [facility] Comment on above: Order Comment: READ BACK CRIT GLU TO [place] [place], 10/12/2021 00:08 Result Comment: CALC ULATIONS OF ESTIMATED GFR ARE PERFORMED USING THE 2020 CKD-EPI STUDY REFIT EQUATION WITHOUT THE RACE VARIABLE FOR THE IDMS-TRACEABLE CREATININE METHODS. https://jasn.asnjournals.org/content/early//ASN.876 0664020 Performed By: #### C MP #### [facility] [address] [place] [address] HCO3 (Bld) [Moles/Vol] 25 mmol/L Normal 21 - 32 [facility] Comment on above: Order Comment: READ BACK CRIT GLU TO [place], 10/12/2021 00:08 Performed By: #### C MP #### [facility] [address] [place] [address] Potassium [Moles/Vol] 4.5 mmol/L Normal 3.5 - 5.3 [facility] Comment on above: Order Comment: READ BACK CRIT GLU TO [place], 10/12/2021 00:08 Performed By: #### C MP #### [facility] [address] [place] [address] Protein [Mass/Vol] 5.9 g/dL Low 6.4 - 8.2 [facility] Comment on above: Order Comment: READ BACK CRIT GLU TO [place], 10/12/2021 00:08 Performed By: #### C MP #### [facility] [address] [place] [address] Sodium [Moles/Vol] 127 mmol/L Low 136 - 145 [facility] Comment on above: Order Comment: READ BACK CRIT GLU TO [place], 10/12/2021 00:08 Performed By: #### C MP #### [facility] [address] [place] [address] Urea nitrogen [Mass/Vol] 14 mg/dL Normal 6 - 23 [facility] Comment on above: Order Comment: READ BACK CRIT GLU TO FARE[place], 10/12/2021 00:08 Performed By: #### C MP #### [facility] [address] [place] [address] FERRITINon 10-12-2021 FERRITIN 1311 ug/L High 20 - 300 [facility] Comment on above: Performed By: #### F ERRI #### [facility] [address] [place] [address] IGG SUBCLASS 4on 10-12-2021 IGG SUBCLASS 4 25 mg/dL Normal 3 - 200 [facility] Comment on above: Performed By: #### I GGG4 #### [facility] [address] [place] [address] IRON + TIBCon 10-12-2021 % SATURATION 70 % High 25 - 45 [facility] Comment on above: Performed By: #### I RONT #### [facility] [address] [place] [address] Iron [Mass/Vol] 180 ug/dL High 35 - 150 [facility] Comment on above: Performed By: #### I RONT #### [facility] [address] [place] [address] TIBC 257 ug/dL Normal 240 - 445 [facility] Comment on above: Performed By: #### I RONT #### [facility] [address] [place] [address] CNPNon 09-10-2021 CNPN Telephone (PODCCP) ANMOL REYNOLDS ([id number]) 1960 M Date Time Provider Department 09/10/21 [...] Of Date 09/10/2021 Noted Resolved NO SHOW [324973] 08/31/2013 05/29/2020 Perineal abscess [L02.215] 06/13/2019 05/29/2020 [...] Encounter Status:Closed by NEHEMIAS MCMANUS on 09/10/21 [facility] Sahil 08-14-2021 SHANTANU Telephone (COLEMAN) GIVEN,ANMOL ([id number]) 1960 M Date Time Provider Department 08/14/21 [...] Of Date 08/14/2021 Noted Resolved NO SHOW [280452] 08/31/2013 05/29/2020 Perineal abscess [L02.215] 06/13/2019 05/29/2020 Nicotine use disorder, F17.2 [F17.200] 06/14/2019 Pilonidal cyst without abscess [L05.91] 05/29/2020 Pilonidal cyst with abscess [L05.01] 12/31/2020 Perirectal abscess [K61.1] 01/16/2021 Diabetes (HCC) [E11.9] 01/18/2021 Encounter Status:Closed by BRYNN ARREOLA on 08/14/21 [facility] Sahil 08-09-2021 CNPN Telephone (COLEMAN) GIVENANMOL ([id number]) 1960 M Date Time Provider Department 08/09/21 PENNY CAMERON During your visit today, we recorded the following information about you: Byron Espinal RN 08/09/2021 2:56 PM Signed Records received from digestive disease consultants Records labeled and placed in records folder near [facility] Allergies As of Date: 08/09/2021 (No Known Allergies) Date Reviewed: 08/08/2021 Reviewed by: Penny Cameron MD - Fully Assessed Reason for Visit: Received Outside Medical Records [357] Prescriptions as of 08/23/2021 - gabapentin (NEURONTIN) [...] Of Date 08/09/2021 Noted Resolved NO SHOW [[id number]] 08/31/2013 05/29/2020 Perineal abscess [L02.215] 06/13/2019 05/29/2020 Nicotine use disorder, F17.2 [F17.200] 06/14/2019 Pilonidal cyst without abscess [L05.91] 05/29/2020 Pilonidal cyst with abscess [L05.01] 12/31/2020 Perirectal abscess [K61.1] 01/16/2021 Diabetes (HCC) [E11.9] 01/18/2021 Encounter Status:Closed by BYRON ESPINAL RN on 08/23/21 [facility] CNOVon 08-05-2021 CNOV Office Visit (GENDENIS ) ANMOL REYNOLDS ([id number]) 1960 M Date Time Provider Department 08/05/21 [...] at 1 (more content not included)... Normal [facility] CA 19-9on 05-23-2021 CA 19-9 284 U/mL High <36 [facility] Comment on above: Performed By: #### C A199 #### [facility] [address], [place] [address] #### TSH, FT4, FREET3 #### [facility] [address], [place] [address] Free T3on 05-22-2021 Free T3 [Mass/Vol] 1.7 pg/mL Low 2.3-4.1 [facility] Comment on above: Performed By: #### C A199 #### [facility] [address] [place] [address] #### TSH, FT4, FREET3 #### [facility] [address] [place] [address] Free T4on 05-22-2021 Free T4 [Mass/Vol] 1.2 ng/dL Normal 0.9-1.7 [facility] Comment on above: Performed By: #### C A199 #### [facility] [address] [place] [address] #### TSH, FT4, FREET3 #### [facility] [address] [place] [address] TSHon 05-22-2021 TSH Qn 1.450 m[IU]/L Normal 0.270-4.200 [facility] Comment on above: Performed By: #### C A199 #### [facility] [address] [place] [address] #### TSH, FT4, FREET3 #### [facility] [address] [place] [address] Basic Metabolic Panelon -2 Anion gap [Moles/Vol] 14 mmol/L Normal 9-15 [facility] Comment on above: Performed By: #### B MP #### [facility] [address] [place] [address] Calcium [Mass/Vol] 8.4 mg/dL Low 8.5-9.9 [facility] Comment on above: Performed By: #### B MP #### [facility] [address] [place] [address] Chloride [Moles/Vol] 100 mmol/L Normal 95-107 [facility] Comment on above: Performed By: #### B MP #### [facility] [address] [place] [address] CO2 [Moles/Vol] 23 mmol/L Normal 20-31 [facility] Comment on above: Performed By: #### B MP #### [facility] [address] [place] [address] Creatinine [Mass/Vol] 0.57 mg/dL Low 0.70-1.20 [facility] Comment on above: Performed By: #### B MP #### [facility] [address] [place] [address] GFR/1.73 sq M predicted among blacks MDRD (S/P/Bld) [Vol rate/Area] mL/min/{1.73_m2} Normal >60 [facility] Comment on above: Result Comment: >60 mL/min/1.73m2 EGFR, calc. for ages 18 and older using the MDRD formula (not corrected for weight), is valid for stable renal function. Performed By: #### B MP #### [facility] [address] [place] [address] GFR/1.73 sq M.predicted MDRD (S/P/Bld) [Vol rate/Area] mL/min/{1.73_m2} Normal >60 [facility] Comment on above: Result Comment: >60 mL/min/1.73m2 EGFR, calc. for ages 18 and older using the MDRD formula (not corrected for weight), is valid for stable renal function. Performed By: #### B MP #### [facility] [address] [place] [address] Glucose [Mass/Vol] 245 mg/dL Critically high 70-99 [facility] Comment on above: Performed By: #### B MP #### [facility] [address] [place] [address] Potassium [Moles/Vol] 3.9 mmol/L Normal 3.4-4.9 [facility] Comment on above: Performed By: #### B MP #### [facility] [address] [place] [address] Sodium [Moles/Vol] 137 mmol/L Normal 135-144 [facility] Comment on above: Performed By: #### B MP #### [facility] [address] [place] [address] Urea nitrogen [Mass/Vol] 13 mg/dL Normal 6-20 [facility] Comment on above: Performed By: #### B MP #### [facility] [address] [place] [address] Anion gap [Moles/Vol] 14 mmol/L [place] Calcium [Mass/Vol] 8.4 mg/dL Low 8.5 - 9.9 mg/dL [place] Chloride [Moles/Vol] 100 mmol/L [place] CO2 [Moles/Vol] 23 mmol/L [place] Creatinine [Mass/Vol] 0.57 mg/dL Low 0.7 - 1.2 mg/dL [place] GFR >60.0 >60 [place] Comment on above: >60 mL/min/1.73m2 EG FR, calc. for ages 18 and older using the MDRD formula (not corrected for weight), is valid for stable renal function. GFR Non- >60.0 >60 [place] Comment on above: >60 mL/min/1.73m2 EG FR, calc. for ages 18 and older using the MDRD formula (not corrected for weight), is valid for stable renal function. Glucose [Mass/Vol] 245 mg/dL High 70 - 99 mg/dL [place] Interpretation and review of laboratory results Abnormal [place] Potassium [Moles/Vol] 3.9 mmol/L [place] Sodium [Moles/Vol] 137 mmol/L [place] Urea nitrogen [Mass/Vol] 13 mg/dL 6 - 20 mg/dL [place] CBC Auto Differentialon -2 Basophils (Bld) [#/Vol] 0.0 10*3/uL 0 - 0.2 K/uL [place] Basophils/100 WBC (Bld) 0.4 % [place] Eosinophils (Bld) [#/Vol] 0.2 10*3/uL 0 - 0.7 K/uL [place] Eosinophils/100 WBC (Bld) 1.6 % [place] Erythrocyte distribution width (RBC) [Ratio] 13.1 % 11.5 - 14.5 % [place] Hematocrit (Bld) [Volume fraction] 39.0 % Low 42 - 52 % [place] Hemoglobin (Bld) [Mass/Vol] 13.3 g/dL Low 14 - 18 g/dL [place] Interpretation and review of laboratory results Abnormal [place] Lymphocytes (Bld) [#/Vol] 1.8 10*3/uL 1 - 4.8 K/uL [place] Lymphocytes/100 WBC (Bld) 16.0 % [place] MCH (RBC) [Entitic mass] 33.3 pg High 27 - 31.3 pg [place] MCHC (RBC) [Mass/Vol] 34.0 % 33 - 37 % [place] MCV (RBC) [Entitic vol] 98.0 fL 80 - 100 fL [place] Monocytes (Bld) [#/Vol] 1.2 10*3/uL High 0.2 - 0.8 K/uL [place] Monocytes/100 WBC (Bld) 10.8 % [place] Neutrophils Absolute 7.8 K/uL High 1.4 - 6 .5 K/uL [place] Neutrophils/100 WBC (Bld) 71.2 % [place] Platelets (Bld) [#/Vol] 232 10*3/uL 130 - 400 K/uL [place] RBC (Bld) [#/Vol] 3.98 10*6/uL Low [place] WBC (Bld) [#/Vol] 10.9 10*3/uL High 4.8 - 10.8 K/uL [facility] [place] CBC With Platelet and Differ entialon 10-25-2020 Basophils (Bld) [#/Vol] 0.0 10*3/uL Normal 0.0-0.2 [facility] Comment on above: Performed By: #### C BCWD #### [facility] [address] [place] [address] Basophils/100 WBC (Bld) 0.4 % Normal [facility] Comment on above: Performed By: #### C BCWD #### [facility] [address] [place] [address] Eosinophils (Bld) [#/Vol] 0.2 10*3/uL Normal 0.0-0.7 [facility] Comment on above: Performed By: #### C BCWD #### [facility] [address] [place] [address] Eosinophils/100 WBC (Bld) 1.6 % Normal [facility] Comment on above: Performed By: #### C BCWD #### [facility] [address] [place] [address] Erythrocyte distribution width (RBC) [Ratio] 13.1 % Normal 11.5-14.5 [facility] Comment on above: Performed By: #### C BCWD #### [facility] [address] [place] [address] Hematocrit (Bld) [Volume fraction] 39.0 % Low 42.0-52.0 [facility] Comment on above: Performed By: #### C BCWD #### [facility] [address] [place] [address] Hemoglobin (Bld) [Mass/Vol] 13.3 g/dL Low 14.0-18.0 [facility] Comment on above: Performed By: #### C BCWD #### [facility] [address] [place] [address] Lymphocytes (Bld) [#/Vol] 1.8 10*3/uL Normal 1.0-4.8 [facility] Comment on above: Performed By: #### C BCWD #### [facility] [address] [place] [address] Lymphocytes/100 WBC (Bld) 16.0 % Normal [facility] Comment on above: Performed By: #### C BCWD #### [facility] [address] [place] [address] MCH (RBC) [Entitic mass] 33.3 pg Critically high 27.0-3 1.3 [facility] Comment on above: Performed By: #### C BCWD #### [facility] [address] [place] [address] MCHC (RBC) [Mass/Vol] 34.0 % Normal 33.0-37.0 [facility] Comment on above: Performed By: #### C BCWD #### [facility] [address] [place] [address] MCV (RBC) [Entitic vol] 98.0 fL Normal 80.0-100.0 [facility] Comment on above: Performed By: #### C BCWD #### [facility] [address] [place] [address] Monocytes (Bld) [#/Vol] 1.2 10*3/uL Critically high 0.2-0. 8 [facility] Comment on above: Performed By: #### C BCWD #### [facility] [address] [place] [address] Monocytes/100 WBC (Bld) 10.8 % Normal [facility] Comment on above: Performed By: #### C BCWD #### [facility] [address] [place] [address] Neutrophils (Bld) [#/Vol] 7.8 10*3/uL Critically high 1.4-6.5 [facility] Comment on above: Performed By: #### C BCWD #### [facility] [address] [place] [address] Neutrophils/100 WBC (Bld) 71.2 % Normal [facility] Comment on above: Performed By: #### C BCWD #### [facility] [address] [place] [address] Platelets (Bld) [#/Vol] 232 10*3/uL Normal 130-400 [facility] Comment on above: Performed By: #### C BCWD #### [facility] [address] [place] [address] RBC (Bld) [#/Vol] 3.98 10*6/uL Low 4.70-6.10 [facility] Comment on above: Performed By: #### C BCWD #### [facility] [address] [place] [address] WBC (Bld) [#/Vol] 10.9 10*3/uL Critically high 4.8-10.8 [facility] Comment on above: Performed By: #### C BCWD #### [facility] [address] [place] [address] Hemoglobin A1con 10-25-2020 HbA1c (Bld) [Mass fraction] 12.1 % Critically high 4.8-5.9 [facility] Comment on above: Performed By: #### A 1C ####[facility] [place] [phone] HbA1c (Bld) [Mass fraction] 12.1 % High 4.8 - 5.9 % [place] Interpretation and review of laboratory results Abnormal [place] POCT Glucoseon 10-25-2020 Glucose [Mass/Vol] 372 mg/dL Critically high 60-115 [facility] Comment on above: Performed By: #### P GLU #### [facility] [address] [place] [address] POC Performed on ACCU-CHEK Normal [facility] Comment on above: Result Comment: Karina chamberlain RN or Performed By: #### P GLU #### [facility] [address] [place] [address] Glucose [Mass/Vol] 372 mg/dL High 60 - 115 mg/dl [place] Interpretation and review of laboratory results Abnormal [place] Performed on ACCU-CHEK [place], [place] Comment on above: Notified RN or MD Glucose [Mass/Vol] 246 mg/dL Critically high 60-115 [facility] Comment on above: Performed By: #### P GLU #### [facility] [address] [facility] [address] POC Performed on ACCU-CHEK Normal [facility] Comment on above: Performed By: #### P GLU #### [facility] [address] [facility] [address] Glucose [Mass/Vol] 246 mg/dL High 60 - 115 mg/dl [place] Interpretation and review of laboratory results Abnormal [place] Performed on ACCU-CHEK [place] LESS THAN 1 HOURon 2020 [...] [facility] OPERATIVE REPORTon OPERATIVE REPORT [facility] [address] [place] [address] OPERATIVE REPORT PATIENT NAME: ANMOL REYNOLDS : 1960 MED REC NO: [id number] ROOM: ACCOUNT NO: [id number] ADMIT DATE: 10/24/2020 PROVIDER: Opal Vigil MD [...] tolerated well. OPAL VIGIL MD [id number] Doc#: [id number] CC: Normal [facility] POCT Glucoseon 10-24-2020 Glucose [Mass/Vol] 439 mg/dL Critically high 60-115 [facility] Comment on above: Performed By: #### P GLU #### [facility] [address] [facility] [place] [address] [facility] Comment on above: Result Comment: Karina chamberlain RN or Performed By: #### P GLU #### [facility] [address] [facility] [place] [address] Glucose [Mass/Vol] 439 mg/dL Critically high 60 - 1 15 mg/dl [place] Interpretation and review of laboratory results Abnormal [place] Performed on ACCU-CHEK [place] Comment on above: Notified RN or MD Glucose [Mass/Vol] 251 mg/dL Critically high 60-115 [facility] Comment on above: Performed By: #### P GLU #### [facility] [address] [place] [address] POC [facility] Comment on above: Performed By: #### P GLU #### [facility] [address] [place] [place] [address] Glucose [Mass/Vol] 251 mg/dL High 60 - 115 mg/dl [place] Interpretation and review of laboratory results Abnormal [place] Performed on ACCU-CHEK [place] Glucose [Mass/Vol] 299 mg/dL Critically high 60-115 [facility] Comment on above: Performed By: #### P GLU #### [facility] [address] [place] [address] POC Performed on ACCU-CHEK Normal [facility] Comment on above: Performed By: #### P GLU #### [facility] [address] [place] [address] Glucose [Mass/Vol] 299 mg/dL High 60 - 115 mg/dl [place] Interpretation and review of laboratory results Abnormal [place] Performed on ACCU-CHEK [place] COVID-19, NAAon 10-19-2020 COVID-19, JOSSY Not Detected Normal Not Detect [facility] Comment on above: Result Comment: This nucleic acid amplification test was developed and its performance characteristics determined by [employer]. Nucleic acid amplification tests include PCR and [...] in this assay. Performed at: [facility] [address] [facility], [place], [place] [id number] [employer] Coach: Carmela Sue MD, Phone: [phone] Performed By: #### I RCOV #### [facility] [address] [place] [address] COVID-19, NAAon 10-18-2020 Source Swab Anterior nares Normal [facility] Comment on above: Performed By: #### I RCOV #### [facility] [address] [place] [address] Basic Metabolic Panelon 10-05 Anion gap [Moles/Vol] 14 mmol/L Normal 9-15 [facility] Comment on above: Performed By: #### B MP #### [facility] [address] [place] [address] Calcium [Mass/Vol] 9.3 mg/dL Normal 8.5-9.9 [facility] Comment on above: Performed By: #### B MP #### [facility] [address] [place] [address] Chloride [Moles/Vol] 100 mmol/L Normal 95-107 [facility] Comment on above: Performed By: #### B MP #### [facility] [address] [place] [address] CO2 [Moles/Vol] 23 mmol/L Normal 20-31 [facility] Comment on above: Performed By: #### B MP #### [facility] [address] [place] [address] Creatinine [Mass/Vol] 0.57 mg/dL Low 0.70-1.20 [facility] Comment on above: Performed By: #### B MP #### [facility] [address] [place] [address] GFR/1.73 sq M predicted among blacks MDRD (S/P/Bld) [Vol rate/Area] mL/min/{1.73_m2} Normal >60 [facility] Comment on above: Result Comment: >60 mL/min/1.73m2 EGFR, calc. for ages 18 and older using the MDRD formula (not corrected for weight), is valid for stable renal function. Performed By: #### B MP #### [facility] [address] [place] [address] GFR/1.73 sq M.predicted MDRD (S/P/Bld) [Vol rate/Area] mL/min/{1.73_m2} Normal >60 [facility] Comment on above: Result Comment: >60 mL/min/1.73m2 EGFR, calc. for ages 18 and older using the MDRD formula (not corrected for weight), is valid for stable renal function. Performed By: #### B MP #### [facility] [address] [place] [address] Glucose [Mass/Vol] 275 mg/dL Critically high 70-99 [facility] Comment on above: Performed By: #### B MP #### [facility] [address] [place] [address] Potassium [Moles/Vol] 4.2 mmol/L Normal 3.4-4.9 [facility] Comment on above: Performed By: #### B MP #### [facility] [address] [place] [address] Sodium [Moles/Vol] 137 mmol/L Normal 135-144 [facility] Comment on above: Performed By: #### B MP #### [facility] [address] [place] [address] Urea nitrogen [Mass/Vol] 11 mg/dL Normal 6-20 [facility] Comment on above: Performed By: #### B MP #### [facility] [address] [place] [address] CBC With Platelet No Differe ntialon 10-15-2020 Erythrocyte distribution width (RBC) [Ratio] 12.7 % Normal 11.5-14.5 [facility] Comment on above: Performed By: #### C BCND #### [facility] [address] [place] [address] Hematocrit (Bld) [Volume fraction] 50.9 % Normal 42.0-52.0 [facility] Comment on above: Performed By: #### C BCND #### [facility] [address] [place] [address] Hemoglobin (Bld) [Mass/Vol] 17.4 g/dL Normal 14.0-18.0 [facility] Comment on above: Performed By: #### C BCND #### [facility] [address] [place] [address] MCH (RBC) [Entitic mass] 33.8 pg Critically high 27.0-3 1.3 [facility] Comment on above: Performed By: #### C BCND #### [facility] [address] [place] [address] MCHC (RBC) [Mass/Vol] 34.2 % Normal 33.0-37.0 [facility] Comment on above: Performed By: #### C BCND #### [facility] [address] [place] [address] MCV (RBC) [Entitic vol] 98.8 fL Normal 80.0-100.0 [facility] Comment on above: Performed By: #### C BCND #### [facility] [address] [place] [address] Platelets (Bld) [#/Vol] 308 10*3/uL Normal 130-400 [facility] Comment on above: Performed By: #### C BCND #### [facility] [address] [place] [address] RBC (Bld) [#/Vol] 5.15 10*6/uL Normal 4.70-6.10 [facility] Comment on above: Performed By: #### C BCND #### [facility] [address] [place] [address] WBC (Bld) [#/Vol] 9.6 10*3/uL Normal 4.8-10.8 [facility] Comment on above: Performed By: #### C BCND #### [facility] [address] [place] [address] Partial Thromboplastin Timeo n 10-15-2020 aPTT Coag (Bld) [Time] 33.9 s Normal 24.4-36.8 [facility] Comment on above: Result Comment: Effe ctive 08/08/2020: Heparin Therapeutic Range: 64.0 ? 98.0 seconds. Performed By: #### P TT #### [facility] [address] [place] [address] Prothrombin Timeon 1 INR Coag (PPP) [Relative time] 0.9 {INR} Normal [facility] Comment on above: Performed By: #### P T #### [facility] [address] [place] [address] PT Coag (PPP) [Time] 12.6 s Normal 12.3-14.9 [facility] Comment on above: Performed By: #### P T #### [facility] [address] [place] [address] MRI Spine Lumbar w/ + w/o Co ntraston 06-15-2018 MRI Spine Lumbar w/ + w/o Contrast Patient Name: ANMOL REYNOLDS MRI Exam Date/Time 06/14/2018 15:59:06 EDT Exam MRI Spine Lumbar w/ + w/o Contrast Ordering Physician [id number] MELITON MCWILLIAMS Accession Number [id number] CPT4 Codes 23509 () Reason For Exam lt leg radiculopathy [...] Transcribed Date and Time: 06/15/2018 8:33 Normal [facility] Glucose, WB POCon 08-05-2017 Glucose mass conc 179 mg/dL High 70-100 [facility] Comment on above: Performed By: #### 1 [id number] ####[facility] [address] [place] [address] Glucose mass conc 194 mg/dL High 70-100 [facility] Comment on above: Performed By: #### 1 [id number] ####[facility] [address] [place] [address] SPINE LUMBAR SINGLE VIEWon 1 10-05-2016 SPINE LUMBAR SINGLE VIEW DATE OF EXAM: N 2016 1:18PMCLINICAL HISTORY/ Name: GAIL CKTUDY:SPINE LUMBAR SINGLE VIEW; 08/05/2017 1:18 pmINDICATION:intra op.COMPARISON:None. CESSION NUMBER(S):[id number] [facility]IAN:OPAL MONGE:Single lateral view of the lumbar spine during lumbar spine surgery. Surgical marker at L5-S1 level. Fluoroscopic time is 0.05 sec.CONCLUSION: IMPRESSION:Fluoroscop ic image of the lumbar spine during surgery. Please refer to the surgical note for further details. Normal [facility] Healthcare CBC With Differentialon - Basophils Auto #/vol (Bld) 0.02 10*3/uL Normal 0.01-0.09 [facility] Comment on above: Performed By: #### 2 [id number] ####[facility] [address] [place] [address] Basophils/100 WBC Auto (Bld) 0.2 % Normal 0.0-1.3 [facility] Comment on above: Performed By: #### 2 [id number] ####[facility] [address] [place] [address] Eosinophils 0.02 10*3/uL Normal 0.01-0.46 [facility] Comment on above: Performed By: #### 2 [id number] ####[facility] [address] [place] [address] Eosinophils/100 leukocytes 0.2 % Normal 0.0-6.7 [facility] Comment on above: Performed By: #### 2 [id number] ####[facility] [address] [place] [address] Erythrocyte distribution width Auto Ratio (RBC) 12.5 % Normal 12.0-15.4 [facility] Healthcare Comment on above: Performed By: #### 2 [id number] ####[facility] [address] [place] [address] Erythrocytes (RBC) 0.00 10*3/uL Normal [facility] Healthcare Comment on above: Performed By: #### 2 [id number] ####[address] [address] Erythrocytes (RBC) 5.10 10*6/uL Normal 4.08-6.37 [facility] Healthcare Comment on above: Performed By: #### 2 [id number] ####[facility] [address] [place] [address] Erythrocytes (RBC) 0.0 /100{WBCs} Normal [facility] Comment on above: Performed By: #### 2 [id number] ####[facility] [address] [place] [address] Hematocrit (HCT) 49.7 % Normal 38.4-54.9 [facility] Healthcare Comment on above: Performed By: #### 2 [id number] ####[facility] [address] [place] [address] Hemoglobin mass conc (Bld) 17.2 g/dL Normal 12.8-17.7 [facility] Healthcare Comment on above: Performed By: #### 2 [id number] ####[facility] [address] [place] [address] Imm Grans Absolute 0.03 10*3/uL Normal 0.00-0.21 [facility] Healthcare Comment on above: Performed By: #### 2 895918 ####[facility] [address] [place] [address] Immature granulocytes #/vol (Bld) 0.3 % Normal [facility] Comment on above: Performed By: #### 2 [id number] ####[facility] [address] [place] [address] Lymphocytes 1.28 10*3/uL Normal 0.40-2.84 [facility] Comment on above: Performed By: #### 2 [id number] ####[facility] [address] [place] [address] Lymphocytes/100 leukocytes 11.9 % Normal 9.4-41.1 [facility] Comment on above: Performed By: #### 2 [id number] ####[address] [place] [address] MCH 33.7 pg High 27.5-32.9 [facility] Comment on above: Performed By: #### 2 [id number] ####[address] [place] [address] MCHC mass conc (RBC) 34.6 g/dL Normal 30.5-35.4 [facility] Comment on above: Performed By: #### 2 623867 ####[facility] [address] [place] [address] MCV 97.5 fL Normal 83.3-98.2 [facility] Comment on above: Performed By: #### 2 [id number] ####[facility] [address] [place] [address] Monocytes 0.85 10*3/uL Normal 0.25-1.33 [facility] Comment on above: Performed By: #### 2 351405 ####[facility] [address] [place] [address] Monocytes/100 leukocytes 7.9 % Normal 3.0-16.2 [facility] Comment on above: Performed By: #### 2 [id number] ####[facility] [address] [place] [address] Neutrophils 8.54 10*3/uL High 2.22-7.53 [facility] Comment on above: Performed By: #### 2 655422 ####[facility] [address] [place] [address] Neutrophils/100 leukocytes 79.5 % High 46.2-79.1 [facility] Comment on above: Performed By: #### 2 123738 ####[facility] [address] [place] [address] Platelet mean volume (PMV) 10.4 fL Normal 9.9-12.1 [facility] Comment on above: Performed By: #### 2 483846 ####[facility] [address] [place] [address] Platelets 334 10*3/uL Normal 155-404 [facility] Comment on above: Performed By: #### 2 152453 ####[facility] [address] [place] [address] RDW SD 45.3 fL Normal 39.3-48.6 [facility] Comment on above: Performed By: #### 2 944261 ####[facility] [address] [place] [address] WBC (Leukocytes) 10.7 10*3/uL Normal 4.2-11.0 [facility] Comment on above: Performed By: #### 2 686931 ####[facility] [address] [place] [address] CHEST 2 VIEWS PA AND LATon 1 CHEST 2 VIEWS PA AND LAT DATE OF EXAM: O ct 2016 8:43AMCLINICAL HISTORY/ Name: GIVEN, BRIANSTUDY:CHEST 2 VIEWS PA AND LAT; 08/03/2017 8:43 amINDICATION:preop.CO MPARISON:None.ACCESSI ON NUMBER(S):[id number] RDERING CLINICIAN:OPAL MONGE:There is no definite acute infiltrate. The costophrenic angles are not blunted. There is no pneumothorax. The heart size and mediastinal width are within gross limits of normal. No prior chest radiograph is available for comparison.CONCLUSION : IMPRESSION:No definite acute pulmonary findings Normal [facility] Comprehensive Metabolic Pane antonio 08-03-2017 Alanine aminotransferase (ALT) 18 U/L Normal 10-52 [facility] Healthcare Comment on above: Performed By: #### 1 [id number] ####[facility] [address] [place] [address] Albumin 4.9 g/dL Normal 3.4-5.0 [facility] Comment on above: Performed By: #### 1 507857 ####[facility] [address] [place] [address] Albumin/Globulin Ratio 2.0 {ratio} Normal 0.9-2.4 [facility] Comment on above: Performed By: #### 1 [id number] ####[facility] [address] [place] [address] Alkaline phosphatase (ALP) 119 U/L High 45-117 [facility] Comment on above: Performed By: #### 1 998480 ####[facility] [address] [place] [address] Anion gap 15 mmol/L Normal 10-20 [facility] Comment on above: Performed By: #### 1 921003 ####[facility] [address] [place] [address] Aspartate aminotransferase (AST) 15 U/L Normal 13-39 [facility] Comment on above: Performed By: #### 1 378830 ####[facility] [address] [facility] [place] [address] Bicarbonate (HCO3) 22 mmol/L Normal 21-32 [facility] Healthcare Comment on above: Performed By: #### 1 086724 ####[facility] [address] [facility] [place] [address] Bilirubin (total) 1.0 mg/dL Normal 0.0-1.2 [facility] Comment on above: Performed By: #### 1 390109 ####[facility] [address] [place] [address] BUN/Creatinine Ratio 19 mg/mg Normal 5-25 [facility] Comment on above: Performed By: #### 1 501012 ####[facility] [address] [place] [address] Calcium 10.0 mg/dL Normal 8.6-10.3 [facility] Healthcare Comment on above: Performed By: #### 1 043337 ####[facility] [address] [place] [address] Chloride 103 mmol/L Normal 98-107 [facility] Comment on above: Performed By: #### 1 208201 ####[facility] [address] [place] [address] Creatinine 0.64 mg/dL Normal 0.50-1.30 [facility] Comment on above: Performed By: #### 1 706176 ####[facility] [address] [place] [address] eGFR (MDRD) mL/min/{1.73_m2} Normal [facility] Comment on above: Result Comment: Inte rpretation for Chronic Kidney Disease:Stages 1&2 >60 Healthy or potential kidney damage.Mild decrease of GFR.Stage 3 30-59 Moderate decrease of GFR.Stage 4 15-29 Severe decrease of GFR.Stage 5 <15 Kidney failure or on dialysis. Performed By: #### 1 [id number] ####[facility] [address] [place] [address] Glucose mass conc 233 mg/dL High 70-100 [facility] Comment on above: Performed By: #### 1 700632 ####[facility] [address] [place] [address] Potassium molar conc 3.8 mmol/L Normal 3.5-5.1 [facility] Comment on above: Performed By: #### 1 318510 ####[facility] [address] [place] [address] Protein 7.4 g/dL Normal 6.4-8.2 [facility] Comment on above: Performed By: #### 1 328003 ####[facility] [address] [place] [address] Sodium 136 mmol/L Normal 136-145 [facility] Healthcare Comment on above: Performed By: #### 1 181567 ####[facility] [address] [place] [address] Urea nitrogen 12 mg/dL Normal 6-23 [facility] Comment on above: Performed By: #### 1 203103 ####[facility] [address] [place] [address] ESR, Westergrenon 08-03-2017 ESR, Westergren 2 mm/h Normal 0-15 [facility] Comment on above: Performed By: #### 2 207865 ####[facility] [address] [place] [address] Prothrombin Time (PT) & Part ial Thromboplastin (PTT)on 08-03-2017 aPTT 29.2 s Normal 22.1-35.3 [facility] Comment on above: Result Comment: Hepa rin Therapeutic Range: 71 - 97 sec Performed By: #### P TPTT ####[facility] [address] [place] [address] INR Coag RelTime (PPP) 0.84 {INR} Low 0.85-1.16 [facility] Comment on above: Result Comment: Coum john Therapy:1.5 - 2.0 Low Intensity Therapy2.0 - 3.0 Moderate Intensity Therapy2.5 - 3.5 High (1) Intensity Therapy3.0 - 4.0 High (2) Intensity Therapy Performed By: #### P TPTT ####[facility] [address] [place] [address] Prothrombin time (PT) Coag time (PPP) 11.4 s Normal 11.3-14.5 [facility] Healthcare Comment on above: Performed By: #### P TPTT ####[facility] [address] [place] [address] Urinalysison 08-03-2017 Ascorbic Acid Negative Normal Negative [facility] Healthcare Comment on above: Performed By: #### 1 550229 ####[facility] [address] [place] [address] Automated Urine Microscopy Not indicated Normal [facility] Healthcare Comment on above: Performed By: #### 1 [id number] ####[facility] [address] [place] [address] Bilirubin Ql (U) Negative Normal Negative [facility] Comment on above: Performed By: #### 1 995999 ####[facility] [address] [place] [address] Blood Negative Normal Negative [facility] Comment on above: Performed By: #### 1 576607 ####[facility] [address] [place] [address] Glucose mass conc mg/dL Abnormal Negative [facility] Comment on above: Performed By: #### 1 568981 ####[facility] [address] [place] [address] Protein Negative Normal Negative [facility] Comment on above: Performed By: #### 1 217141 ####[facility] [address] [place] [address] Urine, appearance Clear Normal Clear [facility] Comment on above: Performed By: #### 1 073357 ####[facility] [address] [place] [address] Urine, color Yellow Normal [facility] Comment on above: Performed By: #### 1 348634 ####[facility] [address] [place] [address] Urine, ketones presence Negative Normal Negative [facility] Comment on above: Performed By: #### 1 484709 ####[facility] [address] [place] [address] Urine, nitrite presence Negative Normal Negative [facility] Comment on above: Performed By: #### 1 009689 ####[facility] [address] [place] [address] Urine, pH 5.0 [pH] Normal 5.0-9.0 [facility] Comment on above: Performed By: #### 1 114444 ####[facility] [address] [place] [address] Urine, specific gravity 1.033 Normal 1.003-1.035 [facility] Comment on above: Performed By: #### 1 [id number] ####[facility] [address] [place] [address] Urine, urobilinogen <2.0 Normal Negative [facility] Comment on above: Performed By: #### 1 657223 ####[facility] [address] [place] [address] WBC (Leukocytes) Negative Normal Negative [facility] Comment on above: Performed By: #### 1 052988 ####[facility] [address] [place] [address] DX LUMBOSACRAL SPINE, BENDIN G VIEWS ONLY, 2 OR 3 VIEWSon 05-27-2017 DX LUMBOSACRAL SPINE, BENDING VIEWS ONLY, 2 OR 3 VIEWS Performed at [facility] APPROVED BY: Robert Velarde MD EXAM TITLE:DX [...] levels unchanged with flexion or extension. Normal [facility] MRI LUMBAR SPINE W/O CONTRAS Ton 05-27-2017 MRI LUMBAR SPINE W/O CONTRAST Performed at [facility] APPROVED BY: Jose Schumacher MD LUMBAR SPINE [...] at the L4-L5 and L5-S1 levels. Normal [facility] Vital Signs Date Time Vital Sign Value Performing Clinician Facility 06-02-2025 11:01-0400 Body temperature 97.59 [degF] Savage Castillo MD Work Phone: [facility] 06-02-2025 11:01-0400 Diastolic blood pressure 77 mm[Hg] Savage Castillo MD Work Phone: [facility] 06-02-2025 11:01-0400 Heart rate 78 /min Savage Castillo MD Work Phone: [facility] 06-02-2025 11:01-0400 SaO2% (BldA) [Mass fraction] 99 % Savage Castillo MD Work Phone: [facility] 06-02-2025 11:01-0400 Systolic blood pressure 130 mm[Hg] Savage Castillo MD Work Phone: [facility] 04-28-2025 20:11-0400 Body temperature 97.3 [degF] Brad Campos MD Work Phone: [facility] 04-28-2025 20:11-0400 Diastolic blood pressure 64 mm[Hg] Brad Campos MD Work Phone: [facility] 04-28-2025 20:11-0400 Heart rate 76 /min Brad Campos MD Work Phone: [facility] 04-28-2025 20:11-0400 Respiratory rate 16 /min Brad Campos MD Work Phone: [facility] 04-28-2025 20:11-0400 SaO2% (BldA) [Mass fraction] 92 % Brad Campos MD Work Phone: [facility] 04-28-2025 20:11-0400 Systolic blood pressure 106 mm[Hg] Brad Campos MD Work Phone: [facility] 04-24-2025 13:34-0400 Body height 190.5 cm Brad Campos MD Work Phone: [facility] 04-22-2025 03:00-0400 Body mass index (BMI) [Ratio] 24.42 kg/m2 Brad Campos MD Work Phone: [facility] 04-22-2025 03:00-0400 Body weight 88.63 kg Brad Campos MD Work Phone: [facility] 03-14-2025 13:56-0400 Body temperature 98.01 [degF] Milad Goodson MD Work Phone: [facility] 03-14-2025 13:56-0400 Diastolic blood pressure 70 mm[Hg] Milad Goodson MD Work Phone: [facility] 03-14-2025 13:56-0400 Heart rate 84 /min Milad Goodson MD Work Phone: [facility] 03-14-2025 13:56-0400 Respiratory rate 20 /min Milad Goodson MD Work Phone: [facility] 03-14-2025 13:56-0400 SaO2% (BldA) [Mass fraction] 97 % Milad Goodson MD Work Phone: [facility] 03-14-2025 13:56-0400 Systolic blood pressure 107 mm[Hg] Milad Goodson MD Work Phone: [facility] 03-07-2025 08:54-0400 Diastolic blood pressure 52 mm[Hg] Yoana Floresn PATTERN MARKING SUPERVISOR - 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 Work Phone: [facility] 03-07-2025 08:54-0400 Heart rate 68 /min Yoana Bren PATTERN MARKING SUPERVISOR - 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 Work Phone: [facility] 03-07-2025 08:54-0400 Systolic blood pressure 107 mm[Hg] Yoana Bren PATTERN MARKING SUPERVISOR - 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 Work Phone: [facility] 01-31-2025 13:27-0400 Body temperature 98.6 [degF] Milad Goodson MD Work Phone: [facility] 01-31-2025 13:27-0400 Diastolic blood pressure 90 mm[Hg] Milad Goodson MD Work Phone: [facility] 01-31-2025 13:27-0400 Heart rate 80 /min Milad Goodson MD Work Phone: [facility] 01-31-2025 13:27-0400 Respiratory rate 18 /min Milad Goodson MD Work Phone: [facility] 01-31-2025 13:27-0400 SaO2% (BldA) [Mass fraction] 95 % Milad Goodson MD Work Phone: [facility] 01-31-2025 13:27-0400 Systolic blood pressure 136 mm[Hg] Milad Goodson MD Work Phone: [facility] 06-13-2024 10:56-0400 Diastolic blood pressure 72 mm[Hg] [facility] 06-13-2024 10:56-0400 Heart rate 85 /min [facility] 06-13-2024 10:56-0400 Respiratory rate 18 /min [facility] 06-13-2024 10:56-0400 SaO2% (BldA) [Mass fraction] 98 % [facility] 06-13-2024 10:56-0400 Systolic blood pressure 114 mm[Hg] [facility] 05-22-2024 08:09-0400 Body temperature 96.8 [degF] RodneyAtlas Geneticsel DO Work Phone: [employer] 05-22-2024 08:09-0400 Diastolic blood pressure 76 mm[Hg] FitWithMe Guerrero DO Work Phone: [facility] [facility] 05-22-2024 08:09-0400 Heart rate 70 /min [employer] Guerrero DO Work Phone: [facility] 05-22-2024 08:09-0400 Respiratory rate 16 /min [employer] Gu[employer] DO Work Phone: [facility] [facility] 05-22-2024 08:09-0400 SaO2% (BldA) [Mass fraction] 99 % [employer] DO Work Phone: [facility] [facility] 05-22-2024 08:09-0400 Systolic blood pressure 128 mm[Hg] [employer] Guerrero DO Work Phone: [employer] [facility] 05-19-2024 13:00-0400 Body mass index (BMI) [Ratio] 26.62 kg/m2 [employer] Guerrero DO Work Phone: [employer] [facility] 05-19-2024 13:00-0400 Body weight 96.62 kg [employer] DO Work Phone: [employer] [facility] 05-18-2024 01:26-0400 Body height 190.5 cm Rodney Guerrero DO Work Phone: [employer] [facility] 05-06-2024 17:08-0400 Body temperature 98.01 [degF] Dashawn Grimm MD Work Phone: [employer] [facility] 05-06-2024 17:08-0400 Diastolic blood pressure 67 mm[Hg] Dashawn Grimm MD Work Phone: [employer] [facility] 05-06-2024 17:08-0400 Heart rate 82 /min Dashawn Grimm MD Work Phone: [employer] [facility] 05-06-2024 17:08-0400 Respiratory rate 16 /min Dashawn Grimm MD Work Phone: [employer] [facility] 05-06-2024 17:08-0400 SaO2% (BldA) [Mass fraction] 91 % Dashawn Grimm MD Work Phone: [employer] [facility] 05-06-2024 17:08-0400 Systolic blood pressure 114 mm[Hg] Dashawn Grimm MD Work Phone: [employer] [facility] 05-05-2024 18:30-0400 Body height 190.5 cm Dashawn Grimm MD Work Phone: [employer] [facility] 05-05-2024 18:30-0400 Body mass index (BMI) [Ratio] 26.62 kg/m2 Dashawn Grimm MD Work Phone: [employer] [facility] 05-05-2024 18:30-0400 Body weight 96.62 kg Dashawn Grimm MD Work Phone: [employer] [facility] 04-20-2024 11:39-0400 Body temperature 97.81 [degF] Ene Dickens MD Work Phone: [employer] [facility] 04-20-2024 11:39-0400 Diastolic blood pressure 81 mm[Hg] Ene Dickens MD Work Phone: [employer] [facility] 04-20-2024 11:39-0400 Heart rate 84 /min Ene Dickens MD Work Phone: [facility] 04-20-2024 11:39-0400 SaO2% (BldA) [Mass fraction] 97 % Ene Dickens MD Work Phone: [facility] 04-20-2024 11:39-0400 Systolic blood pressure 135 mm[Hg] Ene Dickens MD Work Phone: [facility] 04-20-2024 09:55-0400 Respiratory rate 18 /min Ene Dickens MD Work Phone: [facility] 04-19-2024 05:47-0400 Body mass index (BMI) [Ratio] 26.62 kg/m2 Ene Dickens MD Work Phone: [facility] 04-19-2024 05:47-0400 Body weight 96.6 kg Ene Dickens MD Work Phone: [facility] 04-17-2024 00:02-0400 Body height 190.5 cm Ene Dickens MD Work Phone: [facility] 01-29-2024 15:58-0400 Body height 190.5 cm Carlos Gillette MD Work Phone: [facility] 01-29-2024 15:58-0400 Body mass index (BMI) [Ratio] 22.5 kg/m2 Carlos Gillette MD Work Phone: [facility] 01-29-2024 15:58-0400 Body weight 81.65 kg Carlos Gillette MD Work Phone: [facility] 12-29-2023 14:56-0400 Body height 190.5 cm Carlos Gillette MD Work Phone: [facility] 12-29-2023 14:56-0400 Body mass index (BMI) [Ratio] 22.87 kg/m2 Carlos Gillette MD Work Phone: [facility] 12-29-2023 14:56-0400 Body weight 83.01 kg Carlos Gillette MD Work Phone: [facility] 05-23-2023 12:06-0400 Diastolic blood pressure 80 mm[Hg] Colt Klein [employer] Work Phone: [employer] 05-23-2023 12:06-0400 Heart rate 80 /min Colt Klein [employer] Work Phone: [employer] 05-23-2023 12:06-0400 Respiratory rate 18 /min Colt Klein [employer] Work Phone: [employer] 05-23-2023 12:06-0400 SaO2% (BldA) [Mass fraction] 98 % Colt Klein [employer] Work Phone: [employer] 05-23-2023 12:06-0400 Systolic blood pressure 110 mm[Hg] Colt Klein [employer] Work Phone: [employer] 05-23-2023 07:54-0400 Body height 190.5 cm Colt [employer] Work Phone: [employer] [facility] 05-23-2023 07:54-0400 Body mass index (BMI) [Ratio] 22.5 kg/m2 Colt Klein [employer] Work Phone: [employer] 05-23-2023 07:54-0400 Body temperature 97.9 [degF] Colt Klein [employer] Work Phone: [employer] [facility] 05-23-2023 07:54-0400 Body weight 81.65 kg Colt [employer] Phone: [employer] 10-25-2020 00:47-0500 Body Temperature 97.7 [degF] [facility] [employer] 10-25-2020 00:47-0500 BP Diastolic 59 mm[Hg] [facility] , 10-25-2020 00:47-0500 BP Systolic 100 mm[Hg] [facility] , [place] 10-25-2020 00:47-0500 Pulse (Heart Rate) 80 /min [facility], [place] 10-25-2020 00:47-0500 Pulse Oximetry 97 % [facility] , [place] 10-25-2020 00:47-0500 Respiratory Rate 16 /min [facility], [place] 10-24-2020 08:01-0500 BMI (Body Mass Index) 25.68 kg/m2 [facility] [place] 10-24-2020 08:01-0500 Body weight 90.72 kg [facility] [place] 10-24-2020 08:01-0500 Height 188 cm Opal Vigil [facility] [place] Encounters Encounter Date Encounter Type Care Provider Facility Start: 08-05-2025 End: 08-05-2025 Letter encounter Vaishali Placeway DO Work Phone: [facility] Start: 07-31-2025 ambulatory Ambrosio Monroy Facility :[facility] Start: 07-17-2025 ambulatory Ambrosio Monroy Facility :[facility] Start: 06-02-2025 End: 06-02-2025 Office outpatient visit 25 minutes Savage Castillo MD Work Phone: [facility] [place] Comment on above: Pressure injury of c occygeal region, stage 3 (HCC) (Primary Dx); Other acute osteomyelitis, other site (HCC); MRSA (methicillin resistant Staphylococcus aureus) infection; Encounter for long-term (current) use of antibiotics; Paraplegia (HCC) Start: 06-02-2025 End: 06-02-2025 ambulatory SAVAGE CASTILLO [facility] Start: 05-29-2025 End: 05-29-[address] Ambrosio Monroy DO Work Phone: [facility] Start: 05-29-2025 End: 05-29-2025 Departed Referred Tab [employer] Start: 05-29-2025 End: 05-29-2025 ambulatory Tab MURO Facility:[facility] Start: 05-25-2025 End: 05-25-[address] Ambrosio Monroy DO Work Phone: [employer] Start: 05-25-2025 End: 05-25-2025 Departed Referred Tab [facility] [employer] [facility] Start: 05-25-2025 End: 05-25-2025 ambulatory Tab MURO Facility:[facility] Start: 05-24-2025 End: 05-24-2025 Telephone encounter Cheryl Pimentel LPN [facility] Infectious [facility] Comment on above: Labs Only (Missed la b notification ) Start: 05-22-2025 Registered Referred Tab [facility] Adelia SULLIVAN Start: 05-22-2025 End: 05-22-2025 ambulatory Ambrosio M Esterle Facility:[facility] Start: 05-15-2025 ambulatory Ambrosio M Esterle Facility :[facility] Start: 05-15-2025 Registered Referred Tab [facility] [place] Adelia SULLIVAN Start: 05-11-2025 ambulatory Ambrosio M Esterle Facility :[facility] Start: 05-11-2025 Registered Referred Tab [facility] Adelia SULLIVAN Start: 05-09-2025 ambulatory Ambrosio M Esterle Facility :[facility] Start: 05-09-2025 Registered Referred Tab [facility] Adelia SULLIVAN Start: 05-03-2025 Registered Referred Tab [facility] [place] [employer] Start: 05-03-2025 End: 05-03-2025 ambulatory Ambrosio M Esterle Facility:[facility] Start: 05-01-2025 ambulatory Ambrosio M Esterle Facility :[facility] Start: 05-01-2025 Registered Referred Tab Gastonuary Adeliaasa SULLIVAN Start: 04-21-2025 End: 04-28-2025 Evaluation and management of inpatient Brad Campos MD Work Phone: [facility] Medical Unit 4N Comment on above: Other acute osteomye litis, other site (HCC) (Primary Dx); Pressure injury of coccygeal region, stage 3 (HCC); Lumbar stenosis with neurogenic claudication; Osteoarthritis, unspecified osteoarthritis type, unspecified site; Other intervertebral disc displacement, lumbar region Start: 04-18-2025 Registered Referred Tab SULLIVAN Start: 04-18-2025 End: 04-18-2025 ambulatory Ambrosio M Esterle Facility:[facility] Start: 04-16-2025 Registered Referred Tab SULLIVAN Start: 04-16-2025 End: 04-16-2025 ambulatory Ambrosio Monroy Facility:[facility] Start: 03-24-2025 End: 03-24-2025 Telephone encounter Anmol Herbert MD Work Phone: Urology Start: 03-20-2025 End: 03-20-2025 ambulatory ANMOL HERBERT Facility:[facility] Start: 03-14-2025 End: 03-14-2025 Patient encounter procedure Milad Goodson MD Work Phone: Plastic Surgery Comment on above: Chronic osteomyeliti s (HCC) (Primary Dx); Severe protein-calorie malnutrition (HCC); Ureteral calculi; Complicated UTI (urinary tract infection); Neurogenic bladder; Type 2 diabetes mellitus with hyperglycemia, with long-term current use of insulin (HCC) Start: 03-14-2025 End: 03-14-2025 ambulatory MILAD GOODSON Facility:[facility] Start: 03-07-2025 End: 03-07-2025 Telephone encounter Yoana Sanchez CNP Work Phone: [facility] Comment on above: Other Start: 03-07-2025 End: 03-07-2025 Office outpatient visit 25 minutes Yoana Sanchez CNP Work Phone: [facility] Comment on above: Ureteral stent prese nt (Primary Dx); Kidney stone; Hydronephrosis, unspecified hydronephrosis type Start: 03-07-2025 End: 03-07-2025 ambulatory YOANA SOLITARIO [facility] Start: 03-01-2025 End: 03-01-[address] Ambrosio Monroy DO Work Phone: [facility] Work Phone: Start: 03-01-2025 End: 03-01-2025 Departed Referred Tab SULLIVAN Start: 03-01-2025 Registered Referred Tab SULLIVAN Start: 03-01-2025 End: 03-01-2025 ambulatory Ambrosio Monroy Facility:[facility] Start: 02-19-2025 End: 03-08-2025 Telephone encounter Anmol Hrebert MD Work Phone: PA PROVID[facility] ADULT Comment on above: Hospital F/U Start: 02-16-2025 End: 02-22-2025 Evaluation and management of inpatient HOWARD GAMA Facility:[facility] Start: 02-15-2025 End: 02-15-[address] Ambrosio Monroy DO Work Phone: [facility] Work Phone: Start: 02-15-2025 End: 02-15-2025 Departed Referred Tab SULLIVAN Start: 02-15-2025 End: 02-15-2025 ambulatory Ambrosio Monroy Facility:[facility] Start: 01-31-2025 End: 01-31-2025 Patient [...] Start: 01-31-2025 End: 01-31-2025 ambulatory MILAD GOODSON Facility:[facility] Start: 01-09-2025 End: 01-09-2025 Departed Referred Tab Dupont Neno Delvalle [facility] Start: 01-09-2025 End: 01-09-2025 ambulatory Ambrosio Monroy Facility:[facility] Start: 01-04-2025 ambulatory KRISTINE Mendoza ity:[facility] Start: 01-04-2025 End: 01-04-2025 Subsequent hospital visit by physician [facility] (1.5t) Radiology Start: 12-07-2024 End: 12-07-[address] Ambrosio Monroy DO Work Phone: [facility] Work Phone: Start: 12-07-2024 End: 12-07-2024 Departed Referred Tab [place]i Delvalle [place] Start: 12-07-2024 Registered Referred Tab Sanchez [place] [facility] Start: 12-07-2024 End: 12-07-2024 ambulatory Ambrosio Monroy Facility:[facility] Start: 11-30-2024 End: 11-30-[address] Ambrosio Monroy DO Work Phone: [facility] Work Phone: Start: 11-30-2024 End: 11-30-2024 Departed Referred Tab Delvalle [facility] Start: 11-30-2024 Registered Referred Tab Sanchez [place] Adelia [facility] Start: 11-29-2024 End: 11-30-[address] Ambrosio Monroy DO Work Phone: [facility] Work Phone: Start: 11-29-2024 End: 11-29-2024 Departed Referred Daisy Costello MD [facility] [facility] Start: 11-29-2024 End: 11-29-2024 ambulatory Ambrosio Monroy Facility:[facility] Start: 11-08-2024 End: 11-08-2024 Office outpatient visit 25 minutes Faisal Simeon DO [facility] [place] [facility] Comment on above: Paraplegia (HCC) (Pr imary Dx); Neurogenic bladder; Gross hematuria; Neuropathic pain; Pressure injury of skin, unspecified injury stage, unspecified location Start: 11-08-2024 End: 11-08-2024 ambulatory FAISAL SIMEON Facility:[facility] Start: 10-25-2024 End: 11-20-2024 Telephone encounter Carlos Gillette MD Work Phone: [facility] Pain Management [facility] Comment on above: Appointment Start: 10-11-2024 End: 01-10-2025 Transcribe Orders Kristine Howell PATTERN MARKING SUPERVISOR - 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 Work Phone: [facility] Central Scheduling Comment on above: Pressure ulcer of sa cral region, unspecified stage (Primary Dx) Start: 10-10-2024 End: 10-10-2024 Departed Referred Tab Patriciajoshua AlexiaMount Ayrmohan SULLIVAN Start: 10-10-2024 End: 10-10-2024 ambulatory Ambrosio Monroy Facility:[facility] Start: 10-03-2024 End: 10-03-2024 Departed Referred Tab Kiah SULLIVAN Start: 10-03-2024 End: 10-03-2024 ambulatory Ambrosio Monroy Facility:[facility] Start: 09-30-2024 End: 09-30-2024 Office outpatient visit 25 minutes Faisal Simeon DO Work Phone: [facility] Urodynamics Comment on above: Neurogenic bladder ( Primary Dx); Paraplegia (HCC); Urinary retention; Gross hematuria Start: 09-30-2024 ambulatory FAISAL SIMEON Facility:[facility] Start: 09-29-2024 End: 09-29-2024 Departed Referred Tab Kiah SULLIVAN Start: 09-29-2024 End: 09-29-2024 ambulatory Ambrosio Monroy Facility:[facility] Start: 09-20-2024 End: 09-20-2024 Departed Referred Tab Kiah SULLIVAN Start: 09-20-2024 End: 09-20-2024 ambulatory Ambrosio Monroy Facility:[facility] Start: 08-22-2024 End: 08-22-2024 Office outpatient new 45 minutes Giuliano Shultz DO Work Phone: [facility] Rheumatology Comment on above: Osteoporosis, unspec ified osteoporosis type, unspecified pathological fracture presence (Primary Dx) Start: 08-22-2024 End: 08-22-2024 ambulatory UNKNOWN PROVIDER Facility:[facility] Start: 08-12-2024 End: 08-12-2024 Telephone encounter Angelica Anne RN [facility] Rheumatology (Arthritis) Start: 08-01-2024 End: 08-01-2024 [facility] [place] [facility] Comment on above: Paraplegia (HCC) (Pr imary Dx); Neuropathic pain; Neurogenic bowel; Reflex neurogenic bladder Start: 08-01-2024 End: 08-01-2024 ambulatory UNKNOWN PROVIDER Facility:[facility] Start: 07-27-2024 End: 07-27-2024 Telephone encounter Angelica Anne RN [facility] Rheumatology (Arthritis) Start: 07-13-2024 End: 07-13-2024 Telephone encounter Angelica Anne RN [facility] Rheumatology (Arthritis) Start: 07-10-2024 End: 07-10-2024 ambulatory UNKNOWN PROVIDER Facility:[facility] Start: 07-10-2024 End: 07-10-2024 Subsequent hospital visit by physician Ip/Op Mri 2 [facility] Radiology Comment on above: Sacral insufficiency fracture, initial encounter Start: 07-01-2024 End: 07-01-2024 ambulatory OTIS MEJIA Facility:[facility] Start: 06-15-2024 End: 06-15-2024 Telephone encounter Carlos Gillette MD Work Phone: [facility] Comment on above: Reschedule Start: 06-14-2024 End: 06-14-2024 Telephone encounter Vladimir Asher [facility] Start: 06-13-2024 End: 06-13-2024 Office outpatient new 60 minutes Sci Fellow [facility] PM&R Comment on above: Paraplegia (HCC) (Pr imary Dx); Reflex neurogenic bladder; Neuropathic pain; Neurogenic bowel Start: 06-13-2024 End: 06-13-2024 Office outpatient visit 25 minutes Sci Fellow [facility] PM&R Comment on above: Paraplegia (HCC) (Pr imary Dx); Reflex neurogenic bladder; Neuropathic pain; Neurogenic bowel; Urinary retention Start: 06-13-2024 End: 06-16-2024 ambulatory UNKNOWN PROVIDER Facility:[facility] Start: 05-17-2024 End: 05-22-2024 Evaluation and management of inpatient Rodney R Cesar BAUGH Work Phone: [facility] DEMI 6W Comment on above: Positive blood cultu res (Primary Dx); Lumbar stenosis with neurogenic claudication; Osteoarthritis, unspecified osteoarthritis type, unspecified site; Other intervertebral disc displacement, lumbar region; Pressure injury of coccygeal region, stage 3 (HCC) Start: 05-13-2024 End: 05-13-2024 Telephone encounter Sarita Benoit LPN [facility] Infectious Disease Comment on above: Labs Only Start: 05-11-2024 End: 05-15-2024 Office outpatient new 45 minutes Otis Mejia MD Work Phone: [facility] Orthopedic Spine Comment on above: Sacral insufficiency fracture, initial encounter (Primary Dx); Failed back surgical syndrome Start: 05-11-2024 End: 05-11-2024 Subsequent hospital visit by physician Jennifer Op Xray 2 [facility] Radiology Comment on above: Sacral insufficiency fracture, initial encounter Start: 05-11-2024 End: 05-15-2024 ambulatory UNKNOWN PROVIDER Facility:[facility] Start: 05-10-2024 End: 05-10-2024 Telephone encounter Delaney Nunn RN [facility] Line Comment on above: Update Start: 05-05-2024 End: 05-06-2024 Subsequent hospital visit by physician Dashawn Grimm MD Work Phone: [facility] Medical Surgical Unit MSU H5 Comment on above: Bladder calculus (Pr imary Dx); Bilateral ureteral calculi; Calculus of ureter Start: 05-04-2024 End: 05-06-2024 Telephone encounter Carlos Gillette MD Work Phone: [facility] Pain Management Comment on above: Reschedule Start: 04-15-2024 End: 04-15-2024 ambulatory Joe Hammer APRN - 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 Work Phone: [facility] Urology Comment on above: Bilateral ureteral c alculi (Primary Dx); Bladder calculus Start: 04-15-2024 End: 04-25-2024 Telephone encounter Joe Hammer APRN - 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 Work Phone: [facility] Urology Comment on above: Surgery Scheduling Start: 04-14-2024 End: 04-20-2024 Evaluation and management of inpatient Ene Dickens MD Work Phone: [facility] Cardiac Progressive Care Unit PCU 2E Start: 04-06-2024 End: 04-28-2024 Telephone encounter Vaishali Placeway DO Work Phone: [facility] PM&R Start: 04-05-2024 End: 04-05-2024 ambulatory UNKNOWN PROVIDER Facility:[facility] Start: 04-05-2024 End: 04-05-2024 Subsequent hospital visit by physician Jennifer Ip/Op Mri 1 [facility] Radiology Comment on above: Paraplegia (HCC); History of lumbar fusion Start: 02-10-2024 End: 02-11-2024 ambulatory UNKNOWN PROVIDER Facility:[facility] Start: 02-10-2024 End: 02-26-2024 Office outpatient new 45 minutes Vaishali Placeway DO Work Phone: [facility] PM&R Comment on above: Paraplegia (HCC) (Pr imary Dx); History of lumbar fusion Start: 02-10-2024 ambulatory UNKNOWN PROVIDER Facili ty:[facility] Start: 01-29-2024 End: 01-29-2024 Office outpatient visit 25 minutes Carlos Gillette MD Work Phone: [facility] Pain Management Comment on above: Injury of lumbar spi nal cord, sequela (HCC) (Primary Dx); Neuropathic pain Start: 01-15-[address] [facility] Z[facility]io Start: 01-07-2024 End: 01-07-2024 ambulatory [facility] Work Phone: Start: 01-07-2024 End: 01-07-2024 Departed Referred [facility] Zinio Start: 01-07-[address] [facility] Z[facility] Start: 01-04-2024 End: 01-04-2024 ambulatory [facility] Work Phone: Start: 01-04-2024 End: 01-04-2024 Departed Referred [facility] Z[facility]io Start: 01-04-[address] [facility] Start: 12-31-2023 End: 12-31-2023 ambulatory [facility] Work Phone: Start: 12-31-2023 End: 12-31-2023 Departed Referred [facility] Start: 12-29-2023 End: 12-29-2023 Office outpatient new 45 minutes Carlos Gillette MD Work Phone: [employer] [facility] Pain Management Comment on above: Spinal cord injury, lumbar, without spinal bone injury, sequela (HCC) (Primary Dx); Neuropathic pain Start: 12-04-2023 End: 12-04-2023 ambulatory [facility] Work Phone: Start: 12-04-2023 End: 12-04-2023 Departed Referred [facility] Start: 10-25-2023 End: 10-25-2023 Departed Referred [facility] Start: 09-04-2023 Telephone encounter Carlos israel MD Work Phone: [facility] Pain Management Comment on above: Referral Start: 08-19-2023 Telephone encounter Carlos israel MD Work Phone: [employer] [facility] Pain Management Comment on above: Referral (Confirm Re ceipt of Referral for DATA MANAGEMENT CONSULTANT Appt Scheduling) Start: 08-10-2023 Registered Referred [facility] Start: 08-07-2023 Registered Referred [facility] Start: 08-06-2023 Telephone encounter Carlos israel MD Work Phone: [facility] Pain Management Comment on above: new patient appointm ent Start: 07-31-2023 End: 07-31-2023 ambulatory [facility] Work Phone: Start: 07-31-2023 End: 07-31-2023 Departed Referred [facility] Start: 06-29-2023 End: 06-29-2023 Departed Referred [facility] Start: 06-01-2023 End: 06-01-2023 ambulatory [facility] Work Phone: Start: 06-01-2023 End: 06-01-2023 Departed Referred [facility] Start: 05-23-2023 End: 05-23-2023 Emergency department patient visit Colt Klein DO Work Phone: [facility] ED Comment on above: Urinary tract infect ion associated with indwelling urethral catheter, initial encounter (HCC) (Primary Dx) Start: 05-04-2023 End: 05-04-2023 ambulatory [facility] Work Phone: Start: 05-04-2023 End: 05-04-2023 Departed Referred [facility] Start: 05-04-2023 Registered Referred [facility] Start: 03-25-2023 End: 03-25-2023 ambulatory [facility] Work Phone: Start: 03-25-2023 End: 03-25-2023 Departed Referred [facility] Start: 04-21-2022 ambulatory Cindi Cuellar PA-C Work Phone: [facility] [place] Start: 02-14-2022 End: 02-14-2022 Subsequent hospital visit by physician Mri 2 [facility] (I-Stat/1.5t) [facility] Comment on above: abscess Start: 06-11-2021 AUDIT Byron Whitlock DO Work Phone: [facility] Dougie FRANCISCOI Work Phone: Start: 10-24-2020 End: 10-25-2020 Patient encounter procedure OPAL VIGIL [facility] Start: 10-24-2020 End: 10-27-2020 Patient encounter procedure AMBROSIO MONROY [facility] Start: 10-24-2020 End: 10-25-2020 Subsequent hospital visit by physician Opal Vigil Work Phone: [facility] Tele Comment on above: Muscle spasm (Primar y Dx); Diabetes mellitus without complication (HCC) Start: 06-14-2018 Patient encounter Meliton Brandt [facility] Start: 06-11-2018 End: 06-12-2018 Patient encounter JUAN MIGUEL ANN Facility:[id number] Start: 04-29-2018 Patient encounter Ambrosio Felder [facility] Start: 08-05-2017 End: 08-06-2017 Ambulatory OPAL VIGIL Facility:[facility] Start: 08-03-2017 Ambulatory GALE A YARITZA Facility:[facility] Start: 05-27-2017 End: 05-28-2017 Ambulatory ELLIOT TORREZ Facility:[facility] Procedures Date Procedure Procedure Detail Performing Clinician Start: 07-17-2025 Urnls dip stick/tablet reagent auto microscopy Dr. Ambrosio Monroy DO Work Phone: Start: 06-02-2025 Follow-up visit Follow-up SAVAGE CASTILLO [...] metabolic panel calcium total Mary Alice Aguilera PATTERN MARKING SUPERVISOR - 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 Work Phone: Start: 04-26-2025 Glucose quantitative blood [...] 04-25-2025 Basic metabolic panel calcium total Kerwin Lenawee DO Work Phone: Start: 04-24-2025 Glucose quantitative blood xcpt reagent strip Kerwin Lenawee DO Work Phone: Start: 04-24-2025 Glucose quantitative blood xcpt reagent strip Kerwin Lenawee DO Work Phone: Start: 04-24-2025 Glucose quantitative blood xcpt reagent strip Kerwin Lenawee DO Work Phone: Start: 04-24-2025 End: 04-24-2025 Glucose quantitative blood xcpt reagent strip Kerwin Radhames DO Work Phone: Start: 04-24-2025 Decalcification procedure Kaela sevilla MD Work Phone: Start: 04-24-2025 End: 04-24-2025 Culture bacterial any source anaerobic iso&id Kaela Durand MD Work Phone: Start: 04-24-2025 End: 04-24-2025 Debridement muscle & fascia 20 sq cm/< Kaela Durnad MD Work Phone: Start: 04-24-2025 Basic metabolic panel calcium total Kerwin Lenawee DO Work Phone: Start: 04-24-2025 Drug screen quantitative vancomycin Alberto Boogie DATA MANAGEMENT CONSULTANT Work Phone: Start: 04-23-2025 Glucose quantitative blood xcpt reagent strip Kerwin Lenawee DO Work Phone: Start: 04-23-2025 Glucose quantitative blood xcpt reagent strip Kerwin Radhames DO Work Phone: Start: 04-23-2025 Glucose quantitative blood xcpt reagent strip Kerwin Radhames DO Work Phone: Start: 04-23-2025 Glucose quantitative blood xcpt reagent strip Kerwin Radhames DO Work Phone: Start: 04-23-2025 Basic metabolic panel calcium total Kerwin Lenawee DO Work Phone: Start: 04-22-2025 Glucose quantitative blood xcpt reagent strip Kerwin Radhames DO Work Phone: Start: 04-22-2025 Glucose quantitative blood xcpt reagent strip Kerwin Lenawee DO Work Phone: Start: 04-22-2025 Glucose quantitative blood xcpt reagent strip Kerwin Lenawee DO Work Phone: Start: 04-22-2025 Glucose quantitative blood xcpt reagent strip Kerwin Lenawee DO Work Phone: Start: 04-22-2025 Drug screen quantitative vancomycin Alberto Boogie DATA MANAGEMENT CONSULTANT Work Phone: Start: 04-22-2025 Ct pelvis w/contrast [...] Start: 05-18-2024 Basic metabolic panel calcium total Heydi Concepcion MD Work Phone: Start: 05-18-2024 Culture [...] 04-16-2024 Glucose quantitative blood xcpt reagent strip Kaeton Marcos MD Work Phone: Start: 04-16-2024 Glucose [...] panel - Blood Brad Mujica APRN - 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 Work Phone: Start: 04-15-2024 Glucose quantitative blood [...] Manual Differential panel - Blood Bradsrinath Mujica PATTERN MARKING SUPERVISOR - 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 Work Phone: Start: 04-15-2024 Drug screen quantitative vancomycin Orquidea Marti MD Work Phone: Start: 04-15-2024 Culture bacterial quanttative colony count urine Brad Valentin Guanako PATTERN MARKING SUPERVISOR - 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 Work Phone: Start: 04-14-2024 End: 04-14-2024 Blood [...] panel - Serum or Plasma Joe Hammer PATTERN MARKING SUPERVISOR - 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 Work Phone: Start: 09-06-2021 Colonoscopy Faisal Simeon [...] vaccine (adult) (1 - 1-dose 75+ series) [facility] Start: 09-06-2031 Screening for malignant neoplasm of colon [facility] Start: 01-23-2027 Lipid panel Cholesterol [facility] Start: 04-27-2026 Diabetes: Estimated Glomerular Filtration Rate for Kidney Health Diabetes: Estimated Glomerular Filtration Rate for Kidney Health [facility] Start: 04-21-2026 Hemoglobin A1c measurement Diabetes: Hemoglobin A1C [facility] Start: 02-16-2026 Screening for malignant neoplasm of lung Lung Cancer Screening [facility] Start: 07-31-2025 Registered Referred Registered Referred -[place] [facility] Start: 07-17-2025 Registered Referred Registered Referred -[place] [facility] Start: 07-17-2025 Urine culture Urine Culture [facility] Start: 06-05-2025 COVID-19 Vaccine ( season) COVID-19 Vaccine ( season) [facility] Start: 06-05-2025 Influenza vaccination [facility] Start: 06-02-2025 End: 06-02-2025 Patient encounter procedure 06/02/2025 11:00 AM EDT Office Visit [facility] Infectious Disease - [place] [address] [place] [id number] Savage Castillo MD [address] [place] [address] [facility] - [place] Start: 05-22-2025 Diabetes: Estimated Glomerular Filtration Rate for Kidney Health Diabetes: Estimated Glomerular Filtration Rate for Kidney Health [facility] Start: 05-06-2025 Diabetes: Estimated Glomerular Filtration Rate for Kidney Health Diabetes: Estimated Glomerular Filtration Rate for Kidney Health [facility] Start: 04-27-2025 Diabetes: Estimated Glomerular Filtration Rate for [facility]ney Health Diabetes: Estimated Glomerular Filtration Rate for Kidney Health [facility] Start: 04-20-2025 Diabetes: Estimated Glomerular Filtration Rate for Kidney Health Diabetes: Estimated Glomerular Filtration Rate for Kidney Health [facility] Start: 04-20-2025 [facility] Start: 04-15-2025 Diabetes: Estimated Glomerular Filtration Rate for Kidney Health Diabetes: Estimated Glomerular Filtration Rate for Kidney Health [facility] Start: 04-15-2025 Hemoglobin A1c measurement [facility] Start: 04-04-2025 Hemoglobin A1c measurement Hemoglobin A1C [facility] Start: 03-20-2025 End: 03-20-2025 Admission to same day surgery center 03/20/2025 10:00 AM EDT - 03/20/2025 11:30 AM EDT Surgery [facility] [address] [place] [address] Anmol Herbert MD [address] [place] [address] CYSTOSCOPY, RETROPYELOGRAM [facility] Comment on above: CYSTOSCOPY, RETROPYELOGRAM Start: 03-20-2025 End: 03-20-2025 Cysto bladder w/ureteral catheterization [facility] Start: 03-20-2025 End: 03-20-2025 Cysto w/insert ureteral stent [facility] Start: 03-20-2025 End: 03-20-2025 Cysto w/simple removal stone & stent [facility] Start: 03-20-2025 Subsequent hospital visit by physician 03/20/2025 10:00 AM EDT Hospital Encounter [facility] [address] [place] [address] Anmol Herbert MD [address] [place] [address] Other hydronephrosis [N13.39] [facility] Comment on above: Other hydronephrosis [N13.39] Start: 03-14-2025 End: 03-14-2025 Patient encounter procedure 03/14/2025 1:50 PM EDT Office Visit Plastic Surgery [address] [place] [address] Milad Goodson MD [address] [address] [place] sacrum & left ischium Plastic Surgery Comment on above: [place] sacrum & left ischium Start: 01-31-2025 End: 05-02-2025 C reactive protein [Mass/volume] in Serum or Plasma C-REACTIVE PROTEIN Lab Routine Chronic osteomyelitis (HCC) Expected: 01/31/2025, Expires: 05/02/2025 [facility] Comment on above: Expected: 01/31/2025, Expires: Start: 01-31-2025 End: 05-02-2025 Erythrocyte sedimentation rate SEDIMENTATION RATE, WESTERGREN Lab Routine Chronic osteomyelitis (HCC) Expected: 01/31/2025, Expires: 05/02/2025 [facility] Work Phone: Comment on above: Expected: 01/31/2025, Expires: Start: 01-31-2025 End: 05-02-2025 Prealbumin [Mass/volume] in Serum or Plasma PREALBUMIN Lab Routine Chronic osteomyelitis (HCC) Expected: 01/31/2025, Expires: 05/02/2025 [facility] Comment on above: Expected: 01/31/2025, Expires: Start: 11-08-2024 End: 11-08-2024 Telemedicine consultation with patient 11/08/2024 1:30 PM [facility] Telemedicine [facility] [place] [facility] [address] [place] [address] Faisal Simeon DO [address] [place] [address] [facility] Start: 11-05-2024 Welcome to Medicare Visit (G0402) Welcome to Medicare Visit (G0402) [facility] Start: 10-16-2024 Hemoglobin A1c measurement HbA1C [facility] Start: 10-11-2024 End: 10-11-2025 MR Pelvis WO and W contrast IV MR pelvis w and wo contrast Imaging Routine Pressure ulcer of sacral region, unspecified stage Expected: 10/11/2024, Expires: 10/11/2025 [employer] Work Phone: Comment on above: Expected: 10/11/2024, Expires: Start: 10-05-2024 Medicare Advantage Annual Wellness Visit Medicare Advantage Annual Wellness Visit [facility] Start: 09-30-2024 End: 09-30-2025 CT Abdomen and Pelvis WO contrast CT RENAL STONE Imaging Routine Gross hematuria Expected: 09/30/2024, Expires: 09/30/2025 [employer] Work Phone: Comment on above: Expected: 09/30/2024, Expires: Start: 09-30-2024 End: 09-30-2024 Patient encounter procedure 09/30/2024 1:00 PM EST Procedure Visit [facility] [address] [place] [address] Faisal Simeon DO [address] [place] [address] [facility] Start: 09-09-2024 End: 09-09-2024 Patient encounter procedure 09/09/2024 2:00 PM EST Procedure Visit [facility] [address] [place] [address] Faisal Simeon DO [address] [place] [address] [facility] Start: 08-22-2024 End: 08-22-2024 Telemedicine consultation with patient 08/22/2024 8:20 AM EST Telemedicine [facility] [address] [facility] [address] [place] [id number] Giuliano Shultz DO [address] [place] [address] [facility] Start: 2024 End: 2024 Patient encounter procedure 2024 1:30 PM EDT Office Visit [facility] [address] [place] [phone] Carlos Gillette MD [address] [place], [place] [id number] [facility] Start: 08-01-2024 End: 08-01-2024 Telemedicine consultation with patient 08/01/2024 9:00 AM EDT Telemedicine [facility] [place] [facility] [address] [place] [address] [facility] [place] Start: 07-10-2024 End: 07-10-2024 Patient encounter procedure [facility] Start: 07-05-2024 Influenza vaccination Influenza Vaccine (#1) [facility] Start: 07-01-2024 End: 07-01-2024 Professional / ancillary services management 07/01/2024 11:00 AM EDT Ancillary Procedure [facility] [address] [place] [address] [facility] Start: 06-14-2024 End: 06-14-2024 Patient encounter procedure 06/14/2024 8:30 AM EDT Office Visit [facility] [address] [place] [phone] Carlos Gillette MD [address] [facility] [address] [place], [place] [id number] [facility] Start: 06-13-2024 End: 06-13-2024 Patient encounter procedure 06/13/2024 11:00 AM EDT Office Visit [facility] [address] [place] [address] [facility] [place] Start: 06-13-2024 End: 06-13-2024 Professional / ancillary services management 06/13/2024 9:00 AM EDT Ancillary Procedure [facility] [address] [place] [address] [facility] Start: 06-05-2024 COVID-19 Vaccine ( season) COVID-19 Vaccine ( season) [facility] Start: 06-05-2024 COVID-19 Vaccine ( season) COVID-19 Vaccine ( season) [facility] Start: 06-05-2024 Influenza vaccination [facility] Start: 06-05-2024 [facility] Start: 05-11-2024 End: 05-11-2025 DXA Skeletal system Views for bone density BD BONE DENSITY SURVEY Imaging Routine Sacral insufficiency fracture, initial encounter Expected: 05/11/2024, Expires: 05/11/2025 [facility] Work Phone: Comment on above: Expected: 05/11/2024, Expires: Start: 05-11-2024 End: 05-11-2025 MR Cervical spine WO contrast MR C-SPINE W/O Imaging Routine Sacral insufficiency fracture, initial encounter Expected: 05/11/2024, Expires: 05/11/2025 [facility] Comment on above: Expected: 05/11/2024, Expires: Start: 05-11-2024 End: 05-11-2025 MR Thoracic spine WO contrast MR T-SPINE W/O Imaging Routine Sacral insufficiency fracture, initial encounter Expected: 05/11/2024, Expires: 05/11/2025 [facility] Comment on above: Expected: 05/11/2024, Expires: Start: 05-11-2024 End: 05-11-2024 Patient encounter procedure [facility] Comment on above: Sacral insufficiency fracture, initial e ncounter (Primary Dx) Start: 05-06-2024 End: 04-20-2025 Bacteria identified in Blood by Culture [facility] Work Phone: Start: 05-05-2024 End: 05-05-2024 Admission to same day surgery center 05/05/2024 12:30 PM EDT - 05/05/2024 2:30 PM EDT Surgery [facility] MAIN OR [address] [place] [address] Dashawn Grimm MD [address] [facility] [address] [place], [place] [id number] CYSTOSCOPY [85037 (CPT )] [facility] Comment on above: CYSTOSCOPY [01126 (CPT )] Start: 05-05-2024 End: 05-05-2024 ambulatory [facility] Start: 05-05-2024 End: 05-05-2024 Anesthesia consultation 05/05/2024 12:30 PM EDT Anesthesia Event [facility] OR [address] [place] [address] Waleska Stein, PATTERN MARKING SUPERVISOR - 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 [address] [place] [address] [facility] Start: 05-05-2024 End: 05-05-2024 Cysto w/insert ureteral stent [facility] Operating [facility] Start: 05-05-2024 End: 05-05-2024 Cysto w/ureteroscopy w/lithotripsy [facility] Start: 05-05-2024 End: 05-05-2024 Cystourethroscopy [facility] Start: 05-05-2024 End: 05-05-2024 Litholapaxy comp/lg > 2.5 cm [facility] Operating Room Start: 05-05-2024 Subsequent hospital visit by physician 05/05/2024 12:30 PM EDT Hospital Encounter [facility] OR [address] [place] [address] Dashawn Grimm MD [address] [address] [facility] Start: 04-27-2024 End: 04-27-2024 Admission to establishment 04/27/2024 2:00 PM EDT Pre-Admission Testing [facility] Pre-Admit Testing [address] [facility] [place] [phone] Dashawn Grimm MD [address] [address] [facility] Pre-Admit Testing Start: 04-27-2024 End: 04-27-2024 ambulatory [facility] Pre-Admit Testin g Start: 04-21-2024 End: 04-21-2024 Patient encounter procedure 04/21/2024 8:45 AM EDT Office Visit [facility] [address] [place] [phone] Carlos Gillette MD [address] [place] [address] [facility] Start: 04-05-2024 End: 04-05-2024 Patient encounter procedure 04/05/2024 2:30 PM EDT Appointment [facility] [address] [place] [address] [facility] Start: 04-04-2024 Welcome to Medicare Visit (G0402) Welcome to Medicare Visit (G0402) [facility] Start: 03-30-2024 End: 03-30-2024 Patient encounter procedure 03/30/2024 4:00 PM EDT Office Visit [facility] [address] [place] [phone] Carlos Gillette MD [address] [facility] [place] [address] [facility] Start: 02-10-2024 End: 02-09-2025 MR Lumbar spine WO and W contrast IV MR L-SPINE W/+W/O Imaging Routine Paraplegia (HCC) History of lumbar fusion Expected: 02/10/2024, Expires: 02/09/2025 [employer] Work Phone: Comment on above: Expected: 02/10/2024, Expires: Start: 12-29-2023 End: 12-29-2023 Patient encounter procedure 12/29/2023 2:45 PM EDT Office Visit [facility] [address] [place] [phone] Carlos Gillette MD [address] [place], [place] [id number] [facility] Start: 06-05-2023 COVID-19 Vaccine ( season) COVID-19 Vaccine ( season) [facility] Start: 06-05-2023 Influenza vaccination Influenza Vaccine (#1) [facility] Start: 06-05-2023 [facility] Start: 01-23-2023 Hemoglobin A1c measurement Diabetes: Hemoglobin A1C [facility] Start: 01-23-2023 Hepatitis B surface antibody level LDL CHOLESTEROL [facility] Start: 01-23-2023 Lipid panel Lipid Panel [facility] Start: 12-27-2022 Diabetes: Urine Albumin-Creatinine Ratio for [facility] Diabetes: Urine Albumin-Creatinine Ratio for [facility] Start: 07-25-2022 Hemoglobin A1c/Hemoglobin.total in Blood HBA1C [facility] Start: 06-05-2022 Influenza vaccination [facility] Start: 10-25-2021 HbA1c (Bld) [Mass fraction] A1C test (Diabetic or Prediabetic) [place] Start: 10-25-2021 Hemoglobin A1c measurement Diabetes: Hemoglobin A1C [facility] Start: 2021 Hepatitis B (HBV) Vaccine (optional start 60+ years) Hepatitis B (HBV) Vaccine (optional start 60+ years) [facility] Start: 2021 Hepatitis B Vaccines (1 of 3 - Risk 3-dose series) Hepatitis B Vaccines (1 of 3 - Risk 3-dose series) [facility] Start: 2021 RSV Immunization aged 60 or older (1 - 1-dose 60+ series) RSV Immunization aged 60 or older (1 - 1-dose 60+ series) [facility] Start: 2021 RSV Immunization for Adults (1 - Risk 60-74 years 1-dose series) RSV Immunization for Adults (1 - Risk 60-74 years 1-dose series) [facility] Start: 2021 RSV Vaccine (1 - Risk 60-74 years 1-dose series) RSV Vaccine (1 - Risk 60-74 years 1-dose series) [facility] Start: 2021 RSV vaccine (optional 60+ years) RSV vaccine (optional 60+ years) [facility] Start: 2021 [facility] Start: 11-20-2020 End: 11-20-2020 Office Visit 11/20/2020 Office Visit Neurosurgery Opal Vigil MD [address] [address] [facility] Start: 11-06-2020 End: 11-06-2020 Office Visit [facility] Start: 06-05-2020 Influenza vaccination Flu vaccine (#1) [place] Start: 01-05-2018 Lipid panel Lipid screen [place] Start: 2016 PROSTATE CANCER SCREENING DISCUSSION PROSTATE CANCER SCREENING DISCUSSION [facility] Start: 2016 Prostate specific antigen measurement Prostate Cancer Screening Discussion [facility] Start: 2011 Pneumococcal vaccination Pneumococcal Vaccine(s) (50+ yrs) (1 of 1 - PCV) [facility] Start: 2011 Screening for malignant neoplasm of colon Colon cancer screen colonoscopy [place] Start: 2011 Screening for malignant neoplasm of lung Lung Cancer Screening [facility] Start: 2011 Shingles (RZV) Vaccine (1 of 2) Shingles (RZV) Vaccine (1 of 2) [facility] Start: 2011 Shingles Vaccine (1 of 2) Shingles Vaccine (1 of 2) [place] Start: 2011 SHINGRIX VACCINE (1 of 2) SHINGRIX VACCINE (1 of 2) [facility] Start: 2011 Zoster Vaccines (1 of 2) Zoster Vaccines (1 of 2) [facility] Start: 2011 [facility] Start: 2006 COLOGUARD (FIT-DNA) COLOGUARD (FIT-DNA) [facility] Start: 2006 Colonoscopy COLONOSCOPY [facility] Start: 2006 COLORECTAL CANCER SCREENING COLORECTAL CANCER SCREENING [facility] Start: [address] COLONOGRAPHY [facility] Start: 2006 FECAL OCCULT BLOOD FECAL OCCULT BLOOD [facility] Start: 2006 Prostate specific antigen measurement Prostate Cancer Screening Discussion [facility] Start: 2006 Screening for malignant neoplasm of colon [facility] Start: 2006 SIGMOIDOSCOPY SIGMOIDOSCOPY [facility] Start: 1996 Lipid panel Cholesterol [facility] Start: 1980 DTaP/Tdap/Td vaccine (1 - Tdap) DTaP/Tdap/Td vaccine (1 - Tdap) [place] Start: 1980 DTaP/Tdap/Td Vaccines (1 - Tdap) DTaP/Tdap/Td Vaccines (1 - Tdap) [facility] Start: 1980 Hepatitis A (HAV) Vaccine (optional start 19+ years) Hepatitis A (HAV) Vaccine (optional start 19+ years) [facility] Start: 1980 Hepatitis B vaccine (1 of 3 - Risk 3-dose series) Hepatitis B vaccine (1 of 3 - Risk 3-dose series) [place] Start: 1980 Pneumococcal Vaccine: 50+ (1 of 2 - PCV) Pneumococcal Vaccine: 50+ (1 of 2 - PCV) [facility] Start: 1980 Pneumococcal Vaccine: 50+ Years (1 of 2 - PCV) Pneumococcal Vaccine: 50+ Years (1 of 2 - PCV) [facility] Start: 1980 Urine microalbumin profile [facility] Start: 1980 [facility] Start: 1979 ANNUAL PCP TEAM CHRONIC DISEASE VISIT ANNUAL PCP TEAM CHRONIC DISEASE VISIT [facility] Start: 1979 Anxiety Screening Anxiety Screening [facility] Start: 1979 Depression Screening Depression Screening [facility] Start: 1979 Diabetes: Urine Albumin-Creatinine Ratio for Kidney Health Diabetes: Urine Albumin-Creatinine Ratio for [facility] Start: 1979 Diabetic microalbuminuria test Diabetic microalbuminuria test [place] Start: 1979 Hepatitis C screening [facility] Start: 1979 Tetanus + diphtheria + acellular pertussis vaccine (product) [employer]ap [employer] Start: 1979 [facility] Start: 1977 ONE PNEUMOVAX PRIOR TO AGE 65 ONE PNEUMOVAX PRIOR TO AGE 65 [facility] Start: 1976 HIV screening [facility] Start: 1973 Adult depression screening assessment DEPRESSION SCREENING [facility] Start: 1973 Depression Monitoring Depression Monitoring [facility] Start: 1973 [facility] Start: 1971 3 comp foot exam completed DIABETIC FOOT EXAM [facility] Start: 1971 Diabetic foot examination [facility] Start: 1971 Diabetic retinal exam Diabetic retinal exam [place], [place] Start: 1971 Glaucoma screening [facility] Start: 1971 Hepatitis B screening URINE ALBUMIN:CREATININE RATIO [facility] Start: 1971 Hepatitis C antibody, confirmatory test DILATED RETINAL EXAM [facility] Start: 1971 Preventive dental service [facility] Start: 1967 PNEUMOCOCCAL (1 - PCV) PNEUMOCOCCAL (1 - PCV) [facility] Start: 1967 Pneumococcal 0-64 years Vaccine (1 of 1 - PPSV23) Pneumococcal 0-64 years Vaccine (1 of 1 - PPSV23) [place] Start: 1967 Pneumococcal Vaccine: Pediatrics (0 to 5 Years) and At-Risk Patients (6 to 64 Years) (1 - PCV) Pneumococcal Vaccine: Pediatrics (0 to 5 Years) and At-Risk Patients (6 to 64 Years) (1 - PCV) [facility] Start: 1967 Pneumococcal Vaccine: Pediatrics (0 to 5 Years) and At-Risk Patients (6 to 64 Years) (1 of 2 - PCV) Pneumococcal Vaccine: Pediatrics (0 to 5 Years) and At-Risk Patients (6 to 64 Years) (1 of 2 - PCV) [facility] Start: 1967 [facility] Start: 1966 COVID-19 VACCINE (#1) COVID-19 VACCINE (#1) [facility] Start: 1962 MMR Vaccines (1 of 1 - Standard series) MMR Vaccines (1 of 1 - Standard series) [facility] Start: 1962 [facility] Start: 02-01-1962 COVID-19 VACCINE (#1) COVID-19 VACCINE (#1) [facility] Start: 1961 Hepatitis C screening Hepatitis C screen [place] Start: 1961 HIV screening [facility] Start: 1961 Lipid panel [facility] Start: 1961 Medicare Annual Wellness (AWV) Medicare Annual Wellness (AWV) [facility] Start: 1961 Screening for malignant neoplasm of colon [facility] Start: 1961 [facility] End: 08-22-2025 25 hydroxy includes fractions if performed VITAMIN D, 25-HYDROXY Lab Routine Osteoporosis, unspecified osteoporosis type, unspecified pathological fracture presence 1 Occurrences starting 08/22/2024 until 08/22/2025 [facility] Comment on above: 1 Occurrences starting 08/22/2024 until 08/22/2025 Aerobic and Anaerobi c Culture with Stain [facility] Work Phone: Comment on above: Release Upon Ordering for 1 Occurrences starting 05/05/2024 Aerobic and Anaerobi c [facility] Work Phone: Comment on above: Release Upon Ordering for 1 Occurrences starting 04/24/2025 End: 08-22-2025 Assay of parathormone PARATHYROID HORMONE INTACT Lab Routine Osteoporosis, unspecified osteoporosis type, unspecified pathological fracture presence 1 Occurrences starting 08/22/2024 until 08/22/2025 [facility] Comment on above: 1 Occurrences starting 08/22/2024 until 08/22/2025 Bacteria identified in Blood by Culture [facility] Work Phone: End: 04-14-2024 Bacteria identified in Lower respiratory specimen by Aerobe culture [facility] Bacteria identified in Unspecified specimen by Aerobe culture Culture, Aerobic Bacteria with Gram Stain Microbiology Routine Calculus of ureter 05/05/2024 4:14 PM EDT [facility] End: 05-05-2024 Bacteria identified in Unspecified specimen by Anaerobe culture [facility] Comment on above: Once for 1 Occurrences starting 05/05/20 24 until 05/05/2024 Bacteria identified in Unspecified specimen by Anaerobe culture [facility] End: 05-23-2023 Bacteria identified in Urine by Culture [facility] Work Phone: Comment on above: Once (Lab) for 1 Occurrences starting until 05/23/2023 Basic metabolic 2000 panel Basic Metabolic Panel Lab Routine Daily until discontinued starting 10/25/2020, 1 completed [employer] Comment on above: Daily until discontinued starting 2020, 1 completed End: 08-22-2025 Basic metabolic 2000 panel - Serum or Plasma BASIC METABOLIC PANEL Lab Routine Osteoporosis, unspecified osteoporosis type, unspecified pathological fracture presence 1 Occurrences starting 08/22/2024 until 08/22/2025 [facility] [employer] Work Phone: Comment on above: 1 Occurrences starting 08/22/2024 until 08/22/2025 Calculi Analysis(Stone) [facility] Comment on above: Release Upon Ordering for 1 Occurrences starting 05/05/2024 CBC Auto Differential CBC Auto D ifferential Lab Routine Daily until discontinued starting 10/25/2020, 1 completed [employer] Comment on above: Daily until discontinued starting 2020, 1 completed End: 04-14-2024 Fungus identified in Unspecified specimen by Culture [facility] Work Phone: Fungus identified in Unspecified specimen by Culture Fungal Culture Microbiology Routine Calculus of ureter 05/05/2024 4:14 PM EDT [employer] [facility] End: 04-14-2024 Lactic acid with reflex [employer] Work Phone: Oxygen therapy [[facility] Data Set] Initiate Oxygen Therapy Protocol Respiratory Care Routine Daily until discontinued starting 10/24/2020 [employer] [facility] Comment on above: Daily until discontinued starting 2020 POCT glucose Recommend- O [facility] Comment on above: 4X Daily (AC & [...] 2hr while awake until discontinued starting 10/24/2020 [facility] [place], [place] Comment on above: Every 2hr while awake until discontinued starting 10/24/2020 End: 04-14-2024 Urinalysis complete panel - Urine [employer] Work Phone: Immunizations Immunization Date Immunization Notes Care Provider Nessa peñaloza 04-15-2024 Hemoglobin A1C [facility] 04-04-2024 Hemoglobin A1C M[facility] 1 [facility] Payers Date Payer Category Payer Medicare (Managed Care) 1.2. [id number] 2024 Medicare HMO [employer]LE[employer] EOILO MEDICARE [id number] 2024 Medicare [id number] 2024 Self-pay [id number] 2024 Medicare [id number] [id number]. [id number] 2024 Medicare FFS MEDICARE [id number] 2024 Unknown [id number] 2024 Unknown [id number] 2022 Medicaid [id number]. [id number] 2021 Medicaid [facility] MEDICAID [id number] 2021-Present [phone] [address] [place] [address] Medicaid [id number] 2016 Unknown [id number] 2008 Unknown 1961 Unknown [id number] 2.16.840.1.781968.3.579.2. 182 1961 Unknown [id number] 2.16.840.1.349578.3.579.2. 182 1961 Unknown [id number] 2.16.840.1.184875.3.579.2. 732 1961 Unknown [id number] 2.16.840.1.418422.3.579.2. 732 1961 Unknown [id number] 2.16.840.1.001937.3.579.2. 732 1961 Unknown [id number] 2.16.840.1.766066.3.579.2. 732 1961 Unknown [id number] 2.16.840.1.642909.3.579.2. 732 1961 Unknown [id number] 2..840.1.289607.3.579.2. 732 1961 Unknown [id number] 2.16.840.1.777571.3.579.2. 732 1961 Unknown [id number] 2.840.1.761414.3.579.2. 732 1961 Unknown [id number] 2.840.1.171716.3.579.2. 732 1961 Unknown [id number] 2..840.1.506556.3.579.2. 732 1961 Unknown [id number] 2.840.1.789769.3.579.2. 732 1961 Unknown [id number] 2.840.1.263995.3.579.2. 732 Unknown [id number] 2.840.1.721694.3.579.2. 462 Unknown [id number] 2..840.1.949641.3.579.2. 462 Unknown [id number] 2.16.840.1.448194.3.579.2. 462 Unknown [id number] 2.840.1.952064.3.579.2. 462 Unknown [id number] 2.16840.1.908651.3.579.2. 462 Unknown [id number] 2.16.840.1.379857.3.579.2. 462 Unknown [id number] 2.16.840.1.647618.3.579.2. 462 Unknown [id number] 2.16.840.1.405542.3.579.2. 462 Unknown [id number] 2.16840.1.421548.3.579.2. 462 Unknown [id number] 2.16.840.1.156146.3.579.2. 462 Unknown [id number] 2.16.840.1.689749.3.579.2. 462 Unknown [id number] 2.16.840.1.864795.3.579.2. 462 Unknown [id number] 2.16.840.1.566808.3.579.2. 462 Unknown [id number] 2.16.840.1.883038.3.579.2. 462 Unknown [id number] 2.16.840.1.456812.3.579.2. 462 Unknown [id number] 2.16.840.1.229268.3.579.2. 462 Unknown [id number] 2.16.840.1.259127.3.579.2. 462 Unknown [id number] 2.16.840.1.958633.3.579.2. 462 Unknown [id number] 2.16.840.1.478747.3.579.2. 462 Unknown [id number] 2.16840.1.078935.3.579.2. 462 Unknown [id number] 2.16840.1.735370.3.579.2. 462 Unknown [id number] 2.16840.1.130857.3.579.2. 462 Social History Date Type Detail Facility Start: 10-05-1977 End: 04-27-2024 Tobacco smoking status NYIS Current every day smoker [facility] Start: 10-24-2020 End: 04-27-2024 Tobacco use and exposure Never used [place] Start: 10-24-2020 End: 04-24-2025 Alcohol intake Current non-drinker of alcohol (finding) [place] Start: 10-15-2020 History SDOH Food Worry 1 [place] Start: 10-15-2020 History SDOH Transport Med 2 [place] Start: 12-21-2016 [facility]: 1960 Sex Assigned At Not on file [facility] Start: 05-13-2023 End: 05-23-2023 Exposure to SARS-CoV-2 (event) Not sure [facility] Start: 08-09-2013 End: 04-22-2025 Current every day smoker Current every day smoker [facility] Start: 10-05-1977 History of tobacco use Cigarette Smoker [facility] Start: 1960 Sex Assigned At Male [facility] Start: 01-27-2022 End: 02-06-2022 Exposure to SARS-CoV-2 (event) Unable to assess [facility] Start: 12-29-2023 End: 04-22-2025 Gender identity Not on file [facility] Tobacco smoking stat [facility] Tobacco smoking consumption unknown [facility] Has the [employer], [employer], or water [employer] threatened to shut off services in your home in past 12Mo No [facility] How often to you hav e a drink containing alcohol? Never [facility] [facility] How many standard drinks containing alcohol do you have on a typical day? Patient does not drink [facility] (I/We) worried wheth er (my/our) food would run out before (I/we) got money to buy more. Never true [facility] [employer] Start: 05-05-2022 End: 11-27-2023 Sex Male [facility]finding) [facility] Work Phone: Start: 11-29-2021 Gender identity Identifies as male gender (finding) [facility] Start: 10-23-2023 Sexual orientation Heterosexual (finding) [facility] Medical Equipment Procedure Code Equipment Code Equipment Origin al Text Equipment Identifier Dates Graft Infuse 20g a Medium Bovine Collagen [id number] 2x1in Bone Vial Absorbable - [id number] Start: 01-14-2022 Substitute Mastergraft Calcium Phosphate Collagen Bone Graft Putty Void - [id number] Start: 12-12-2021 Substitute Mastergraft 10cm Bone Graft Strip 12ml Spine - [id number] Start: 01-14-2022 Substitute Mastergraft 10cm Bone Graft Strip 12ml Spine - [id number] Start: 01-14-2022 Creo Thread 6.5 X [...] Uret 6fr 2 2cm Wo Gw - [id number] Start: 05-05-2024 Stent Uret 6fr 2 2cm Wo Gw - [id number] Start: 05-05-2024 Functional Status Date Assessment Result Facility 04-21-2025 Total score [AUDIT-C] 0 04/21/20 25 10:31 PM JARODT Giovana Barnard RN [facility] 02-22-2025 Are you deaf, or do you have serious difficulty hearing No 02/22/2025 8:55 PM Nahun Hollingsworth RN No [facility] 02-22-2025 Are you blind, or do you have serious difficulty seeing, even when wearing glasses No 02/22/2025 8:55 PM Nahun Hollingsworth RN No [facility] 02-22-2025 Do you have serious difficulty walking or climbing stairs Yes 02/22/2025 8:55 PM Nahun Hollingsworth RN Yes [facility] 02-22-2025 Do you have difficul ty dressing or bathing Yes 02/22/2025 8:55 PM Nahun Hollingsworth RN Yes [facility] 02-22-2025 Because of a physica l, mental, or emotional condition, do you have difficulty doing errands alone such as visiting a physician's office or shopping Yes 02/22/2025 8:55 PM EDT Nahun Gunderson RN Yes [facility] 01-24-2022 Are you deaf, or do you have serious difficulty hearing No 01/24/2022 5:46 PM EDT Tiffanie Womack RN No [facility] 01-24-2022 Are you blind, or do you have serious difficulty seeing, even when wearing glasses No 01/24/2022 5:46 PM EDT Tiffanie Womack RN No [facility] 01-24-2022 Do you have serious difficulty walking or climbing stairs Yes 01/24/2022 5:46 PM EDT Tiffanie Womack RN Yes [facility] 01-24-2022 Do you have difficul ty dressing or bathing Yes 01/24/2022 5:46 PM JARODT Tiffanie Womack RN Yes [facility] 01-24-2022 Because of a physica l, mental, or emotional condition, do you have difficulty doing errands alone such as visiting a physician's office or shopping No 01/24/2022 5:46 PM JARODT Tiffanie Womack RN No [facility] Mental Status Date Assessment Result Facility 02-22-2025 Because of a physica l, mental, or emotional condition, do you have serious difficulty concentrating, remembering, or making decisions No 02/22/2025 8:55 PM Nahun Hollingsworth RN No [facility] 01-24-2022 Because of a physica l, mental, or emotional condition, do you have serious difficulty concentrating, remembering, or making decisions No 01/24/2022 5:46 PM EDT Tiffanie Womack RN No [facility] Clinical Notes 01-16-2021 to 06-02-2025 Savage Castillo MD - 06/02/2025 11:00 AM EDTTelephone Encounter - Noemi Spence RN - 05/25/2025 11:01 AM EDTTelephone Encounter - Cheryl Pimentel LPN - 05/24/2025 9:13 AM EDTDisspencer Instr - Diet Note Date & Type Note Facility 06-02-2025 History of Present illness Narrative Images from the original note were not included. [facility] INFECTIOUS DIS [address] [place] [address] Post-Discharge Hospital Follow Up Date of [...] (HCC) 2. Other acute osteomyelitis, other site ([facility]) 3. MRSA (methicillin resistant Staphylococcus aureus) infection 4. Encounter for long-term (current) use of antibiotics 5. Paraplegia (HCC) Overall healing well- continue antibiotics to 06/06 as previously outlined. OK to pull pICC afterwards and no additional po tail necessary. Continue VAC dressing, defer to Surgery duration necessary. Recommend follow up with [facility]- Dr. Kaela Durand who [...] to 06/06. Still on Wound VAC at [facility]. Overall doing better. I have performed [...] and CBC WNL. documented in this encounter [facility] 05-25-2025 Miscellaneous Notes Received a call from nurse Nikki [phone] stating Vanc tr this week is 17 and asking if IV Vanc can be hung. Told her yes, hang Vanc as trough is within therapeutic range. Per Nikki, they will obtain another Vanc level on 05/29. Received a call from Clement stoner at [facility]. She stated the labs that were [...] labs are received. documented in this encounter [facility] 05-25-2025 Telephone encounter Note Received a call from nurse Nikki [phone] stating Vanc tr this week is 17 and asking if IV Vanc can be hung. Told her yes, hang Vanc as trough is within therapeutic range. Per Nikki, they will obtain another Vanc level on 05/29. [facility] 05-24-2025 Telephone encounter Note Received a call from Clement nurse at [facility]. She stated the labs that were [...] vanc until this weeks labs are received. [facility] 04-28-2025 Nurse Note Called report to the [facility]. PICC line clean dry and intact. Aide got pt ready and gathered all belongings. Waiting on transport to arrive. [facility] 04-28-2025 Nurse Note Called report to the [facility]. PICC line clean dry and intact. Aide got pt ready and gathered all belongings. Waiting on transport to arrive. Patient dressings changed as per orders. Patient tolerated well. Left PICC dressing changed patient tolerated well documented in this encounter [facility] 04-28-2025 Note Discharge Summary Anmol Franco Given : 1960 ADMIT DATE: 04/21/2025 DISCHARGE DATE: [...] feeding: High Dos (more content not included)... [facility] 04-28-2025 Hospital course Narrative Images from [...] Complexity: follow up within 7-14 calendar days (00372) [] Severe Complexity: follow up within 7 calendar days (14047) FOLLOW UP TESTING, PENDING RESULTS OR REFERRALS AT TRANSITIONAL CARE VISIT: [] Yes [] No PENDING STUDIES: DISPOSITION: Skilled Facility FACILITY/HOME CARE AGENCY NAME: Follow up with Tab Dupont PCP - General Internal Medicine [phone] [facility] [address] [address] Next Steps: Schedule an appointment as soon as possible for a visit in 1 week(s) [facility] Wound Ostomy Wound Care [phone] [address] [facility] [place] [address] Next Steps: Schedule an appointment as soon as possible for a visit Kaela Durand MD Surgical Critical Care General Surgery Trauma Surgery [phone] [facility] [address] Next Steps: Schedule an appointment as soon as possible for a visit in 2 week(s) Savage Castillo MD Infectious Diseases [phone] [facility] [address] Next Steps: Schedule an appointment as soon [...] 04/28/2025, 2:45 PM documented in this encounter [facility] 04-28-2025 Plan of care note Proteus is sensitive to unasyn. OPAT for unasyn and vancomycin completed and scanned into media with stop date of 06/06. Follow up with Dr. Castillo. Salvador/w [facility]. Plans for discharge to [facility]. Jo-Ann Ortiz MD [facility] Work Phone: 04-28-2025 Miscellaneous Notes Proteus is sensitive to unasyn. OPAT for unasyn and vancomycin completed and scanned into media with stop date of 06/06. Follow up with Dr. Castillo. D/w [facility]. Plans for discharge to SNF. Jo-Ann Ortiz MD Confirmed pickup time of 5:30pm on 04/28/25 by transport [employer] Carlos Obrien at phone number [phone]. Location of facility drop off is [facility]. Facility notified via [facility], [facility] notified on secure chat. Transport requested in Roundtrip in will call to [facility] per [facility]. Care Management Progress Note Short Medical why still here: continues to be treated for osteomyelitis. ID following- awaiting sensitivities for final IV plan. Currently receiving IV unasyn and vanc. PICC Line intact for antic 6wk course. Planned Discharge Disposition: plan for return to [facility]- will NOT need auth. PERSONAL INJURY LITIGATION PARALEGAL to place pt in roundtrip under will call for transport assist. Barriers/Today we still Wait: need opat/final plan for discharge. Length of Stay (Days): 6 GMLOS: 8.[address] Castillo- s/p Mina [...] Planned Discharge Disposition: Plan for return to [facility]- does not need auth. Barriers/Today we still Wait: ID plan/opat. Length of Stay (Days): 5 GMLOS: 8.4 Care Management Progress Note Short Medical why still here: Pt continues to be treated for osteomyelitis. Receiving IV merrem q8hr with plan for 6wk tx per ID-final plan not complete. Planned Discharge Disposition: plan for return to [facility]- will need auth d/t skilled need for IV atb tx. Facility updated and asked to submit for auth. ADELINE complete. Barriers/Today we still Wait: Plan from ID/line placement and auth. Length of Stay (Days): 4 GMLOS: 8.4 Care Management Progress Note Short Medical why still here: Pt continues to be treated for osteomyelitis. ID following- receiving IV merrem and vanc- anticipate watermelon inspector tx. Planned Discharge Disposition: Pt from [facility]- met with pt this afternoon- introduced self and role. Verified return when stable. Will need auth if pt has skilled needs (IV atb greater than once a day will qualify). Barriers/Today we still Wait: ID plan/line placement/opat. Length of Stay (Days): 3 GMLOS: 8.4 SW consult-[facility] transportation. SW reviewed chart. Pt is a LTC resident of [facility]. [place] is responsible for pt transportation for medical appointments. . Return Referral placed to [facility] via [facility] per [facility] request. Await review and response regarding ability to accept. [facility] notified. Care Management Progress Note Short Medical why still here: Pt adm for tx/evaluation of osteomyelitis. OR this am with surgery for debridement of sacral and ischial wounds. Receiving IV merrem and vanc with ID following- anticipate watermelon inspector needs. Planned Discharge Disposition: Pt from [facility] alf. Attempted to confirm return with pt however [...] achieved with bovie electrocautery. Two pieces of Texline patch were placed in the wound bed. [...] x 4 cm = 28 cm2 [CPT 57762, 17056] Open biopsy of left ischium [CPT 05868] This note is electronically signed by: Kaela [...] ago. States that he is at a [facility] and they were concerned that his wounds [...] EMS pt was sent here from the [place] for wound infections. Pt has two wound [...] Family History[3] SOCIAL HISTORY Social History[4] SCREENINGS [place] Coma Scale Best Eye Response: Spontaneous Best [...] Procedure Abnormality Status --------- ------ Culture, Aerobic Bacteri...[[id number]] Abnormal Preliminary result Anaerobic culture[[id number]] In process Please view results for these [...] Resource Strain: Low Risk (04/24/2023) Received from [facility] Overall Financial Resource Strain (CARDIA) Difficulty of Paying Living Expenses: Not hard at all Food Insecurity: No Food Insecurity (02/17/2025) Received from [facility] Hunger Vital Sign Worried About Running Out of Food in the Last Year: Never true Ran Out of Food in the Last Year: Never true Transportation Needs: No Transportation Needs (02/17/2025) Received from [facility] PRAPARE - Transportation Lack of Transportation (Medical): No Lack of Transportation (Non-Medical): No Intimate Partner Violence: Not At Risk (05/18/2024) Humiliation, Afraid, Rape, and Kick questionnaire Fear of Current or Ex-Partner: No Emotionally Abused: No Physically Abused: No Sexually Abused: No Housing Stability: Unknown (02/17/2025) Received from [facility] Housing Stability Vital Sign Unable to Pay for Housing in the Last Year: No Homeless in the Last Year: No Brad Campos MD 04/22/25 0201 documented in this encounter [facility] 04-28-2025 Progress note Formatting of t his note might be different from the original. Confirmed pickup time of 5:30pm on 04/28/25 by [employer] at phone number [phone]. Location of facility drop off is [facility]. Facility notified via [facility], [facility] notified on secure chat. [facility] 04-28-2025 Hospital Discharge instructions Berhane Moreno [...] assistance Toileting Total assistance Feeding Minimal assistance Chief Green Officer Minimal assistance Med Delivery yes Wound Care [...] Date: 04/22/25 [facility]charging to [facility] [address] [place], [place] [address] 13 mo Pediatric Physical Therapy Assistant/Copra Processor signature: ICIAN SECTION Name: Anmol Reynolds Prognosis: good Condition at Discharge: stable Rehab Potential (if transferring to Rehab): fair Recommended Labs or Other Treatments After Discharge: CBC, CMP panel weekly till IV antibiotic is completed Discontinue PICC line after IV antibiotic is completed The individual is being admitted to a nursing facility directly from an [facility] or a unit of a [facility] that is not operated by or licensed by [facility] under section 5119.14 or 5160-3-15.1 5 The individual requires the level of services provided by a nursing facility for the condition for which he or she was treated in the hospital and, Physician Certification: I certify the above information and transfer of Anmol Reynolds is necessary for the continuing treatment of the diagnosis listed and that he requires chcf facility for greater than 30 days. Update Admission H&P: No change in H&P PHYSICIAN SIGNATURE: documented in this encounter [facility] 04-28-2025 Progress note Formatting of t his note might be different from the original. Transport requested in Roundtrip in will call to [facility] per [facility]. [facility] 04-28-2025 Note Care Management Prog ress Note Short Medical why still here: continues to be treated for osteomyelitis. ID following- awaiting sensitivities for final IV plan. Currently receiving IV unasyn and vanc. PICC Line intact for antic 6wk course. Planned Discharge Disposition: plan for return to [facility]- will NOT need auth. PERSONAL INJURY LITIGATION PARALEGAL to place pt in roundtrip under will call for transport assist. Barriers/Today we still Wait: need opat/final plan for discharge. Length of Stay (Days): 6 GMLOS: 8.4 [facility] 04-28-2025 Progress note Formatting of t his note might be different from the original. Care Management Progress Note Short Medical why still here: continues to be treated for osteomyelitis. ID following- awaiting sensitivities for final IV plan. Currently receiving IV unasyn and vanc. PICC Line intact for antic 6wk course. Planned Discharge Disposition: plan for return to [facility]- will NOT need auth. PERSONAL INJURY LITIGATION PARALEGAL to place pt in roundtrip under will call for transport assist. Barriers/Today we still Wait: need opat/final plan for discharge. Length of Stay (Days): 6 GMLOS: 8.4 [facility] 04-28-2025 Note Hospitalist Progress Note 04/28/2025 10:05 AM [phone]: Please page me for patient care issues. [phone]: Please page [facility] night Hospitalist for any issues. Subjective: Admit Date: 04/21/2025 PCP: Tab Dupont Room#: N4-830/N4-295 A Interval History: Patient seen and examined [...] diet Regular; 4 carb choices (60 gm/meal) @[id number]@ Medications: Continuous Meds[2] Scheduled Meds[3] LABS: CBC: [...] daily Wound care team following. PT recommended chcf facility Continue IV Venofer as ordered for [...] Reynolds Mobile Relation (more content not included)... [facility] 04-28-2025 History of Present illness Narrative Hospitalist Progress Note 04/28/2025 10:05 AM [phone]: Please page me for patient care issues. [phone]: Please page [facility] night Hospitalist for any issues. Subjective: [...] diet Regular; 4 carb choices (60 gm/meal) @[id number]@ Medications: Continuous Meds[2] Scheduled Meds[3] LABS: CBC: [...] daily Wound care team following. PT recommended chcf facility Continue IV Venofer as ordered for [...] made to ensure accuracy; however, inadvertent computerized qa internship errors may be present. Berhane Moreno MD Division of Hospitalist Medicine [employer] [facility] PAGER: Epic chat [1] Past Medical [...] creatinine, and vancomycin levels interfaced automatically to [facility] and data has been analyzed and interpreted. [...] Chat Hospitalist Progress Note 04/27/2025 9:04 AM [phone]: Please page me for patient care issues. [phone]: Please page [facility] night Hospitalist for any [...] diet Regular; 4 carb choices (60 gm/meal) @[id number]@ Medications: Continuous Meds[2] Scheduled Meds[3] LABS: CBC: [...] daily Wound care team following. PT recommended chcf facility Continue IV Venofer as ordered for [...] made to ensure accuracy; however, inadvertent computerized qa internship errors may be present. Berhane Moreno MD Division of Hospitalist Medicine [employer] [facility] PAGER: [employer] chat [1] Past Medical History: Diagnosis Date [...] creatinine, and vancomycin levels interfaced automatically to [facility] and data has been analyzed and interpreted. [...] Chat Hospitalist Progress Note 04/26/2025 9:58 AM [phone]: Please page me for patient care issues. [phone]: Please page [facility] night Hospitalist for any issues. Subjective: [...] diet Regular; 4 carb choices (60 gm/meal) @[id number]@ Medications: Continuous Meds[2] Scheduled Meds[3] LABS: CBC: [...] daily Wound care team following. PT recommended [facility]cf facility IV Venofer for iron deficiency anemia ordered x 2 dose Hold ferrous sulfate Discussed with salesperson surgical appliances by clyde malone--okay to restart anticoagulation today [...] made to ensure accuracy; however, inadvertent computerized qa internship errors may be present. Berhane Moreno MD Division of Hospitalist Medicine [employer] PAGER: Clyde malone [1] Past Medical History: [...] creatinine, and vancomycin levels interfaced automatically to [facility] and data has been analyzed and interpreted. [...] Chat Hospitalist Progress Note 04/25/2025 5:34 PM [phone]: Please page me for patient care issues. [phone]: Please page [facility] night Hospitalist for any [...] diet Regular; 4 carb choices (60 gm/meal) @[id number]@ Medications: Continuous Meds[2] Scheduled Meds[3] LABS: CBC: [...] daily Wound care team following PT recommended chcf facility Check iron profile Patient can be [...] made to ensure accuracy; however, inadvertent computerized qa internship errors may be present. Berhane Moreno MD Division of Hospitalist Medicine [employer] PAGER: Epic chat [1] Past Medical History: [...] Oral, Daily vancomycin, 1,500 mg, IntraVENous, q12h [facility] - Infectious Diseases Attending [...] 134 (L) 04/25/2025 005 K 4.3 04/25/2025 005 CL 101 04/25/2025 0056 CO2 26 04/25/2025 [...] to Meropenem Impression: 64 M admitted from [facility] with: Worsening decubitus ulcer , concerning [...] creatinine, and vancomycin levels interfaced automatically to [facility] and data has been analyzed and interpreted. [...] TIME: 9:15 AM Bridgette Virk PharmD PGY1 [employer] Machine Operator Available via Secure Chat Images from the original note were not included. Department of General Surgery Daily Progress Note ADMIT DATE: 04/21/2025 TODAY'S DATE: 04/25/2025 HPI: Anmol Reynolds is a 64 y.o. male with significant past medical history of paraplegia s/p surgical complication with Dr. Ashley at [facility], HLD, HTN, MDD, OA, a-fib on eliquis, chronic sacral wounds who presents from his [facility] after he states the nurses have become [...] Clarke DO [employer] Division of Hospitalist Medicine [facility] care [facility] [1] Past Medical History: Diagnosis Date [...] (BLE Edema: Moderate pitting, indentation subsides rapidly) Thermoforming Machine Operator Strength: Not Performed Chief Complaint Patient presents with Wound Infection Per EMS pt was sent here from the [place] for wound infections. 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 Nurse states she ordered [...] (kg): 82.41 kg Total Energy Requirements (kcals/day): 1502-0377 (25-30 kcals/kg) Weight Used for Protein Requirements: [...] in paraplegia) % Weight Change (Calculated): 0 [place] Body Weight (lbs) (Calculated): 196 lbs [place] Body Weight (Kg) (Calculated): 89 kg % [place] Body Weight (Calculated): 99.5 % BMI (kg/m2) (Calculated): 24.4 Weight Adjustment For: Paraplegia % Weight Adjustment: 7.5 - Paraplegia Total Adjusted Percentage (Calculated): 7.5 Adjusted [place] Body Weight (lbs) (Calculated): 181.3 lbs Adjusted [place] Body Weight (kg) (Calculated): 82.41 kg Adjusted [...] Elly Whatleymamadou MS, RD, LD Contact: or [employer] Chat (dial *[phone] from hospital phone) [1] Past Medical History: [...] creatinine, and vancomycin levels interfaced automatically to [facility] and data has been analyzed and interpreted. [...] JOE Diaz CNP Family Communication Number Called: [phone] Name of Designated Family Shoe Turner: Ronald Reynolds Relationship: brother Phone Call Outcome: I spoke with the individual listed above. Family Shoe Turner Updated on the Following: I updated Ronald [...] chronic sacral wounds who presents from his [facility] after he states the nurses have become [...] MD Division of Trauma Department of Surgery [facility] [1] Patient Active Problem List [...] Intake/Output Summary (Last 24 hours) at 04/23/2025 2901 Last data filed at 04/23/2025 1650 Gross [...] Kerwin BeckfordDO stuart Division of Hospitalist Medicine [employer] [facility] [1] Past Medical History: Diagnosis Date [...] original note were not included. PHYSICAL THERAPY [facility] Initial Evaluation Name/MRN: Anmol Reynolds ([id number]) Evaluation Date: 04/23/2025 Date of : 1960 Admission Date: 04/21/2025 9:56 PM Age: 64 y.o. Room/Bed: N4-465/N4-465 B Discharge Recommendation: Custodial Facility Equipment Needed: No Assessment IMPRESSION: PT [...] Other acute osteomyelitis, other site ([facility]) 04/22/2025 Positive blood cultures 05/17/2024 Calculus of ureter 05/06/2024 Bladder calculus 05/05/2024 Pressure injury of coccygeal region, stage 3 ([facility]) 04/20/2024 Septic shock ([facility]) 04/14/2024 Lumbar stenosis with neurogenic claudication 10/24/2020 Spinal stenosis of lumbar region with neurogenic claudication 10/24/2020 Nicotine use disorder 10/15/2020 Unspecified osteoarthritis, unspecified site 10/15/2020 Pilonidal cyst without abscess 10/15/2020 Diabetes mellitus without complication [facility] [facility] 10/15/2020 Abnormal finding on EKG 10/15/2020 [...] x4 Social/Functional History Patient admitted from [facility] . Assistive Equipment: wheelchair - manual [...] of Care supervision is transferred to a [facility] Therapy Services Physical Therapist. Goals [...] creatinine, and vancomycin levels interfaced automatically to [facility] and data has been analyzed and interpreted. [...] RicciDO Division of Hospitalist Medicine Acute care [facility] [1] Past Medical History: Diagnosis Date [...] creatinine, and vancomycin levels interfaced automatically to [facility] and data has been analyzed and interpreted. [...] via Secure Chat documented in this encounter [facility] 04-28-2025 Note Pharmacy to Dose Van comycin - Progress Note Lab Results Component Value Date CREATININE 0.64 (L) 04/27/2025 BUN 21 04/27/2025 WBC 8.0 04/27/2025 VANCORANDOM 12.3 (L) 04/16/2024 VANCOTROUGH 12.0 04/24/2025 Doses, serum creatinine, and vancomycin levels interfaced automatically to [facility] and data has been analyzed and interpreted. [...] PharmD Clinical Pharmacist Available via Secure Chat [facility] 04-27-2025 Plan of care note Assuming coverage from Dr. Castillo- s/p Mina ischial wound debridement with osteomyelitis. Additional organisms are being reported on OR cx. E raffinosus, Proteus, MRSA, Clostridium ramosum, enteric gosia, and skin gosia. Await Proteus sensitivities prior to completion of OPAT. Will provide final recommendations tomorrow. D/w TCC. Jo-Ann Ortiz MD [facility] 04-27-2025 Note Care Management Prog ress Note Short Medical why still here: pt being treated for osteomyelitis. Receiving IV unaysn and vanc with ID planning on extended IV course- awaiting opat/final plan. Planned Discharge Disposition: Plan for return to [facility]- does not need auth. Barriers/Today we still Wait: ID plan/opat. Length of Stay (Days): 5 GMLOS: 8.4 [facility] 04-27-2025 Progress note Formatting of t his note might be different from the original. Care Management Progress Note Short Medical why still here: pt being treated for osteomyelitis. Receiving IV unaysn and vanc with ID planning on extended IV course- awaiting opat/final plan. Planned Discharge Disposition: Plan for return to [facility]- does not need auth. Barriers/Today we still Wait: ID plan/opat. Length of Stay (Days): 5 GMLOS: 8.4 [facility] 04-27-2025 Nurse Note Patient dressings changed as per orders. Patient tolerated well. Left PICC dressing changed patient tolerated well [facility] 04-27-2025 Note Hospitalist Progress Note 04/27/2025 9:04 AM [phone]: Please page me for patient care issues. [phone]: Please page [facility] night Hospitalist for any [...] diet Regular; 4 carb choices (60 gm/meal) @[email or web address]@ Medications: Continuous Meds[2] Scheduled Meds[3] LABS: CBC: [...] daily Wound care team following. PT recommended [facility] facility Continue IV Venofer as ordered for [...] Primary Emergency Con (more content not included)... [facility] 04-27-2025 Note Pharmacy to Dose Van comycin - Progress Note Lab Results Component Value Date CREATININE 0.64 (L) 04/27/2025 BUN 21 04/27/2025 WBC 8.0 04/27/2025 VANCORANDOM 12.3 (L) 04/16/2024 VANCOTROUGH 12.0 04/24/2025 Doses, serum creatinine, and vancomycin levels interfaced automatically to [facility] and data has been analyzed and interpreted. [...] DATE: 04/27/25 TIME: 7:33 AM Brunilda Gomez, Hans Clinical Pharmacist Available via Secure Chat [facility] 04-26-2025 Note Care Management Prog ress Note Short Medical why still here: Pt continues to be treated for osteomyelitis. Receiving IV merrem q8hr with plan for 6wk tx per ID-final plan not complete. Planned Discharge Disposition: plan for return to [facility]- will need auth d/t skilled need for IV atb tx. Facility updated and asked to submit for auth. ADELINE complete. Barriers/Today we still Wait: Plan from ID/line placement and auth. Length of Stay (Days): 4 GMLOS: 8.4 [facility] 04-26-2025 Progress note Formatting of t his note might be different from the original. Care Management Progress Note Short Medical why still here: Pt continues to be treated for osteomyelitis. Receiving IV merrem q8hr with plan for 6wk tx per ID-final plan not complete. Planned Discharge Disposition: plan for return to [facility]- will need auth d/t skilled need for IV atb tx. Facility updated and asked to submit for auth. ADELINE complete. Barriers/Today we still Wait: Plan from ID/line placement and auth. Length of Stay (Days): 4 GMLOS: 8.4 [facility] 04-26-2025 Note Hospitalist Progress Note 04/26/2025 9:58 AM [phone]: Please page me for patient care issues. [phone]: Please page [facility] night Hospitalist for any issues. Subjective: [...] diet Regular; 4 carb choices (60 gm/meal) @[email or web address]@ Medications: Continuous Meds[2] Scheduled Meds[3] LABS: CBC: [...] daily Wound care team following. PT recommended [facility] facility IV Venofer for iron deficiency anemia ordered x 2 dose Hold ferrous sulfate Discussed with salesperson surgical appliances by epic kira--okay to restart anticoagulation today [...] monitoring : Accu-C (more content not included)... [facility] 04-26-2025 Note Pharmacy to Dose Van comycin - Progress Note Lab Results Component Value Date CREATININE 0.62 (L) 04/26/2025 BUN 19 04/26/2025 WBC 7.3 04/26/2025 VANCORANDOM 12.3 (L) 04/16/2024 VANCOTROUGH 12.0 04/24/2025 Doses, serum creatinine, and vancomycin levels interfaced automatically to [facility] and data has been analyzed and interpreted. [...] JudyD Clinical Pharmacist Available via Secure Chat [facility] 04-25-2025 Note Hospitalist Progress Note 04/25/2025 5:34 PM [phone]: Please page me for patient care issues. [phone]: Please page [facility] night Hospitalist for any [...] diet Regular; 4 carb choices (60 gm/meal) @[email or web address]@ Medications: Continuous Meds[2] Scheduled Meds[3] LABS: CBC: [...] daily Wound care team following PT recommended [facility] facility Check iron profile Patient can be [...] Daughter Advance D (more content not included)... [facility] 04-25-2025 Note Care Management Prog ress Note Short Medical why still here: Pt continues to be treated for osteomyelitis. ID following- receiving IV merrem and vanc- anticipate watermelon inspector tx. Planned Discharge Disposition: Pt from [facility]- met with pt this afternoon- introduced self and role. Verified return when stable. Will need auth if pt has skilled needs (IV atb greater than once a day will qualify). Barriers/Today we still Wait: ID plan/line placement/opat. Length of Stay (Days): 3 GMLOS: 8.4 [facility] 04-25-2025 Progress note Formatting of t his note might be different from the original. Care Management Progress Note Short Medical why still here: Pt continues to be treated for osteomyelitis. ID following- receiving IV merrem and vanc- anticipate alf tx. Planned Discharge Disposition: Pt from [facility]- met with pt this afternoon- introduced self and role. Verified return when stable. Will need auth if pt has skilled needs (IV atb greater than once a day will qualify). Barriers/Today we still Wait: ID plan/line placement/opat. Length of Stay (Days): 3 GMLOS: 8.4 [facility] 04-25-2025 Note [facility] Medical Group - Infectious Diseases Attending [...] Date/Time NA 134 (L) 04/25/202555 K 4.3 04/25/2025 005 CL 101 04/25/20256 CO2 26 04/25/20256 BUN [...] 04/25/202555 MONOPCT 10 04/20/2024 0359 BASOPCT 0.4 04/25/2025 005 BASOPCT 1 04/19/2024 0428 NEUTROABS 6.5 04/25/202555 Micro: 04/24 tissue cx: E raffinosus so far 04/21 Wound cx: MRSA, anaerobic GNR, not B fragilis Lines: PIV Radiography/Echo/Other: reviewed Antimicrobials, Start/End Dates: Vancomycin Cefepime to Meropenem Impression: 64 M admitted from [facility] with: Worsening decubitus ulcer , concerning [...] optimize wound healing. Will follow. Case d/wCM. [facility] 04-25-2025 Note Pharmacy to Dose Van comycin - Progress Note Lab Results Component Value Date CREATININE 0.73 04/25/2025 BUN 14 04/25/2025 WBC 9.5 04/25/2025 VANCORANDOM 12.3 (L) 04/16/2024 VANCOTROUGH 12.0 04/24/2025 Doses, serum creatinine, and vancomycin levels interfaced automatically to [facility] and data has been analyzed and interpreted. [...] TIME: 9:15 AM Bridgette Virk, PharmD PGY1 Whiting Machine Operator Available via Secure Chat [facility] 04-25-2025 Note Department of [facility] l Surgery Daily Progress Note ADMIT DATE: 04/21/2025 TODAY'S DATE: 04/25/2025 HPI: Anmol Reynolds is a 64 y.o. male with significant past medical history of paraplegia s/p surgical complication with Dr. Ashley at [facility], HLD, HTN, MDD, OA, a-fib on eliquis, chronic sacral wounds who [facility] after he states the nurses have become [...] call with questions or concerns Maureen Garduno, PATTERN MARKING SUPERVISOR - 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 04/25/25 7:58 AM [1] [Held by provider] [...] polyethylene glycol (PEG) 3350, sodium chloride 0.9% [facility] 04-24-2025 Note Hospitalist Progress Note 04/24/2025 [...] precautions: increase ac (more content not included)... [facility] 04-24-2025 Note Patient declined smo rl cessation counseling. Accepting of handout with contact information for future reference. [facility] 04-24-2025 Progress note Formatting of t his note might be different from the original. VIVIAN consult-[facility] transportation. VIVIAN reviewed chart. Pt is a LTC resident of [facility]. [place] is responsible for pt transportation for medical appointments. . [facility] 04-24-2025 Note Return Referral plac ed to [facility] via [facility] per TCC request. Await review and response regarding ability to accept. TCC notified. [facility] 04-24-2025 Progress note Formatting of t his note might be different from the original. Return Referral placed to [facility] via [facility] per TCC request. Await review and response regarding ability to accept. TCC notified. [facility] 04-24-2025 Note Care Management Prog ress Note Short Medical why still here: Pt adm for tx/evaluation of osteomyelitis. OR this am with surgery for debridement of sacral and ischial wounds. Receiving IV merrem and vanc with ID following- anticipate watermelon inspector needs. Planned Discharge Disposition: Pt from [facility]. Attempted to confirm return with pt however pt sleeping this am- unable to arouse for conversation. Barriers/Today we still Wait: IV atb/ID plan. Length of Stay (Days): 2 GMLOS: 4 [facility] 04-24-2025 Progress note Formatting of t his note might be different from the original. Care Management Progress Note Short Medical why still here: Pt adm for tx/evaluation of osteomyelitis. OR this am with surgery for debridement of sacral and ischial wounds. Receiving IV merrem and vanc with ID following- anticipate alf needs. Planned Discharge Disposition: Pt from [facility]. Attempted to confirm return with pt however pt sleeping this am- unable to arouse for conversation. Barriers/Today we still Wait: IV atb/ID plan. Length of Stay (Days): 2 GMLOS: 4 [facility] 04-24-2025 Note Pharmacy to Dose Van comycin - Progress Note Lab Results Component Value Date CREATININE 0.59 (L) 04/24/2025 BUN 7 (L) 04/24/2025 WBC 9.3 04/24/2025 VANCORANDOM 12.3 (L) 04/16/2024 VANCOTROUGH 12.0 04/24/2025 Doses, serum creatinine, and vancomycin levels interfaced automatically to [facility] and data has been analyzed and interpreted. [...] PharmD Clinical Pharmacist Available via Secure Chat [facility] 04-24-2025 Note Patient: Anmol Santiago en Procedure Summary Date: 04/24/25 Room / Location: [address] Operating Room Anesthesia Start: 729 Anesthesia [...] once all PACU criteria has been met. [facility] 04-24-2025 Note Patient: Anmol D Giv en Procedure Summary Date: 04/24/25 Room / Location: [address] Operating Room Anesthesia Start: 729 Anesthesia [...] opportunity for questions and acknowledgement of understanding. [facility] 04-24-2025 Nurse Note Patient states nobody here to update [facility] 04-24-2025 Note Family Communication Number Called: [phone] Name of Designated Family Shoe Turner: Ronald Given Relationship: brother Phone Call Outcome: I spoke with the individual listed above. Family Shoe Turner Updated on the Following: I updated Ronald on Anmol's surgery. He will rely the message to Ronald's daughter Sumi (phone number provided not functional). [facility] 04-24-2025 Note Airway Date/Time: 04/24/2025 7:37 AM Reason: scheduled Airway not difficult General Information and Staff Patient location during procedure: Procedural Resident/INDUSTRIAL ENG: Quinten Salgado APRN - INDUSTRIAL ENG Performed: INDUSTRIAL ENG Patient Condition Indications for airway management: anesthesia [...] 23 Number of attempts at approach: 1 [facility] 04-24-2025 Note Patient: Anmol Franco Giraven en Procedure Information Date/Time: 04/24/25 0730 Procedure: Sacral wound DEBRIDEMENT SKIN SUBCUTANEOUS TISSUE MUSCLE (Bilateral) Location: [address] Operating Room Surgeons: Kaela Durand MD Relevant Problems Cardio (+) Hypertension Neuro/Psych (+) Anxiety Other (+) Other acute osteomyelitis, other site ([facility]) (+) Unspecified osteoarthritis, unspecified site Past Medical [...] date: Other reduced mobility No date: Paraplegia ([facility]) No date: Sciatica No date: Spinal stenosis of lumbar region with neurogenic claudication No date: Type 2 diabetes mellitus without complication ([facility]) ([facility]) No date: Urinary calculus, unspecified No [...] Requests [1] No family history on file. [facility] 04-24-2025 Procedure note OPERATIVE REPORT Date [...] achieved with bovie electrocautery. Two pieces of Texline patch were placed in the wound bed. [...] x 4 cm = 28 cm2 [CPT 16888, 69264] Open biopsy of left ischium [CPT 20206] This note is electronically signed by: Kaela Durand MD 1:56 PM, 04/25/2025. [facility] 04-24-2025 Plan of care note Problem: [...] monitored and maintained or improved Outcome: Progressing [facility] 04-23-2025 Note Hospitalist Progress Note 04/23/2025 [...] Intake/Output Summary (Last 24 hours) at 04/23/2025 2205 Last data filed at 04/23/2025 1650 Gross [...] precautions: increase act (more content not included)... [facility] 04-23-2025 Plan of care note Problem: Pain - Adult Goal: Verbalizes/displays adequate comfort level or baseline comfort level Outcome: Progressing Problem: Safety - Adult Goal: Free from fall injury Outcome: Progressing Problem: Chronic Conditions and Co-morbidities Goal: Patient's chronic conditions and co-morbidity symptoms are monitored and maintained or improved Outcome: Progressing [facility] 04-23-2025 Note PHYSICAL THERAPY [facility] Initial Evaluation Name/MRN: Anmol Reynolds ([id number]) Evaluation Date: 04/23/2025 Date of : 1960 Admission Date: 04/21/2025 9:56 PM Age: 64 y.o. Room/Bed: N4-465/N4-465 B Discharge Recommendation: Custodial Facility Equipment Needed: No Assessment IMPRESSION: PT [...] Other acute osteomyelitis, other site ([facility]) 04/22/2025 Positive blood cultures 05/17/2024 Calculus of ureter 05/06/2024 Bladder calculus 05/05/2024 Pressure injury of coccygeal region, stage 3 ([facility]) 04/20/2024 Septic shock ([facility]) 04/14/2024 Lumbar stenosis with neurogenic claudication 10/24/2020 Spinal stenosis of lumbar region with neurogenic claudication 10/24/2020 Nicotine use disorder 10/15/2020 Unspecified osteoarthritis, unspecified site 10/15/2020 Pilonidal cyst without abscess 10/15/2020 Diabetes mellitus without complication ([facility]) 10/15/2020 Abnormal finding on EKG 10/15/2020 [...] x4 Social/Functional History Patient admitted from [facility] . Assistive Equipment: wheelchair - manual [...] of Care supervision is transferred to a [facility] Therapy Services Physical Therapist. Goals and/or treatment plan was established in collaboration with patient/family/other representatives. [1] Past Medical History: Diagnosis Date Abnormal posture Abscess, perineum Anemia BPH (benign prostatic hyperplasia) Chronic back pain Hem (more content not included)... [facility] 04-23-2025 Note Pharmacy to Dose Van comycin - Progress Note Lab Results Component Value Date CREATININE 0.54 (L) 04/23/2025 BUN 8 (L) 04/23/2025 WBC 9.4 04/23/2025 VANCORANDOM 12.3 (L) 04/16/2024 VANCOTROUGH 12.4 04/22/2025 Doses, serum creatinine, and vancomycin levels interfaced automatically to [facility] and data has been analyzed and interpreted. [...] DATE: 04/23/25 TIME: 8:13 AM Radha Deal [facility] Clinical Pharmacist Available via Secure Chat [facility] 04-23-2025 Plan of care note Problem: [...] monitored and maintained or improved Outcome: Progressing [facility] 04-22-2025 Consult note Associated Order (s): IP CONSULT TO INFECTIOUS DISEASES Images from the original note were not included. [facility] - Infectious Diseases Attending Consult Note Reason for Consult: 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 History of Present Illness: 64 M with h/o MRSA lumbar epidural abscess from 2021, s/p decompression and fusion, but left paraplegic with neurogenic bladder. Recent hospitlaizaitons for PNA as well as ESBL Proteus UTI/ sepsis recently at [facility]. He had a sacral decubitus ulcer for years, was already improving but worsened since most recent prolonged hospitalization once more in February 2025. Buttock ulcer developed that time as well. Patient stabilized, completed IV antibiotics, and was doing well except at [facility] increased concern for worsening wound infection, [...] Resource Strain: Low Risk (04/24/2023) Received from [facility] Overall Financial Resource Strain (CARDIA) Difficulty [...] to Meropenem Impression: 64 M admitted from [facility] with: Worsening decubitus ulcer , concerning [...] 10 mg Oral TID PRN Alberto Boogie, DATA MANAGEMENT CONSULTANT 10 mg at 04/22/25 0624 dextrose 5 % infusion 100 mL/hr IntraVENous PRN Alberto Boogie, DATA MANAGEMENT CONSULTANT dextrose 50 % solution 12.5 g 12.5 g IntraVENous PRN Alberto Boogie, DATA MANAGEMENT CONSULTANT DULoxetine (Cymbalta) DR capsule 30 mg 30 mg Oral Daily Alberto Boogie, DATA MANAGEMENT CONSULTANT 30 mg at 04/22/25 0923 ferrous sulfate tablet 325 mg 325 mg Oral Daily with breakfast Alberto Boogie, DATA MANAGEMENT CONSULTANT 325 mg at 04/22/25 09 glucagon (human recombinant) injection 1 mg 1 mg IntraMUSCular PRN Alberto Boogie, DATA MANAGEMENT CONSULTANT glucose oral gel 15 g 15 g Oral PRN Alberto Boogie, DATA MANAGEMENT CONSULTANT insulin glargine (Lantus) injection 45 Units 45 Units SubCUTAneous q AM Alberto Boogie, DATA MANAGEMENT CONSULTANT 45 Units at 04/22/25920 Insulin Lispro (Humalog) injection 0-18 Units 0-18 Units SubCUTAneous TID WC Alberto Boogie, DATA MANAGEMENT CONSULTANT 9 Units at 04/22/25 09 And Insulin Lispro (Humalog) injection 0-18 Units 0-18 Units SubCUTAneous Nightly Alberto Boogie, DATA MANAGEMENT CONSULTANT [START ON 04/24/2025] lactated Ringer's infusion 100 mL/hr IntraVENous Continuous Cari Ling MD linaGLIPtin (Tradjenta) tablet 5 mg 5 mg Oral Daily Alberto Boogie, DATA MANAGEMENT CONSULTANT 5 mg at 04/22/25 0946 meropenem (Merrem) 2,000 mg in sodium chloride 0.9 % 100 mL IVPB 2,000 mg IntraVENous q8h Kerwin Ricci DO midodrine (Proamatine) tablet 10 mg 10 mg Oral TID Alberto Boogie, DATA MANAGEMENT CONSULTANT 10 mg at 04/22/25 0921 mirtazapine (Remeron) tablet 7.5 mg 7.5 mg Oral Nightly Alberto Boogie, DATA MANAGEMENT CONSULTANT naloxone (Narcan) nasal spray 4 mg 4 mg Nasal PRN Alberto Boogie, DATA MANAGEMENT CONSULTANT ondansetron ODT (Zofran-ODT) disintegrating tablet 4 mg 4 mg Oral q8h PRN Alberto Boogie, DATA MANAGEMENT CONSULTANT Or ondansetron (Zofran) injection 4 mg 4 mg IntraVENous q6h PRN Alberto G Terral, DATA MANAGEMENT CONSULTANT oxyCODONE (Roxicodone) immediate release tablet 15 mg 15 mg Oral 4x daily Alberto Sanchez Terral, DATA MANAGEMENT CONSULTANT 15 mg at 04/22/25 0921 polyethylene glycol (PEG) 3350 (Miralax) packet 17 g 17 g Oral BID Alberto Sanchez Keagan, DATA MANAGEMENT CONSULTANT 17 g at 04/22/25 0921 polyethylene glycol (PEG) 3350 (Miralax) packet 17 g 17 g Oral Daily PRN Alberto Sanchez Terral, DATA MANAGEMENT CONSULTANT pregabalin (Lyrica) capsule 200 mg 200 mg Oral TID Alberto G Keagan, DATA MANAGEMENT CONSULTANT 200 mg at 04/22/25 0920 senna-docusate sodium (Senokot-S) 8.6-50 MG tablet 2 tablet 2 tablet Oral BID Alberto Miltons, DATA MANAGEMENT CONSULTANT 2 tablet at 04/22/25 0921 sodium chloride 0.9% (NS) flush 10 mL 10 mL IntraCATHeter q12h Alberto Sanchez Terral, DATA MANAGEMENT CONSULTANT 10 mL at 04/22/25 0634 sodium chloride 0.9% (NS) flush 10 mL 10 mL IntraCATHeter PRN Alberto Sanchez Keagan, DATA MANAGEMENT CONSULTANT tamsulosin (Flomax) 24 hr capsule 0.4 mg 0.4 mg Oral Daily Alberto Miltons, DATA MANAGEMENT CONSULTANT 0.4 mg at 04/22/25 0922 vancomycin IVPB 1500 mg in 250 mL NS (premix) 1,500 mg IntraVENous q12h Alberto Miltons, DATA MANAGEMENT CONSULTANT [4] No Known Allergies [5] No family history on file. [facility] 04-22-2025 Consult note Associated Order (s): IP CONSULT TO INFECTIOUS DISEASES Images from the original note were not included. [facility] - Infectious Diseases Attending Consult Note Reason for Consult: 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 History of Present Illness: 64 M with h/o MRSA lumbar epidural abscess from 2021, s/p decompression and fusion, but left paraplegic with neurogenic bladder. Recent hospitlaizaitons for PNA as well as ESBL Proteus UTI/ sepsis recently at [facility]. He had a sacral decubitus ulcer [...] Resource Strain: Low Risk (04/24/2023) Received from [facility] Overall Financial Resource Strain (CARDIA) Difficulty [...] to Meropenem Impression: 64 M admitted from [facility] with: Worsening decubitus ulcer , concerning [...] mg 30 mg Oral Daily Alberto Boogie DATA MANAGEMENT CONSULTANT 30 mg at 04/22/25922 ferrous sulfate tablet 325 mg 325 mg Oral Daily with breakfast Alberto Boogie DATA MANAGEMENT CONSULTANT 325 mg at 04/22/25920 glucagon (human recombinant) injection 1 mg 1 mg IntraMUSCular PRN Alberto Boogie NP glucose oral gel 15 g 15 g Oral PRN Alberto Boogie DATA MANAGEMENT CONSULTANT insulin glargine (Lantus) injection 45 Units 45 Units SubCUTAneous q AM Alberto Boogie DATA MANAGEMENT CONSULTANT 45 Units at 04/22/25920 Insulin Lispro (Humalog) injection 0-18 Units 0-18 Units SubCUTAneous TID WC Alberto Boogie NP 9 Units at 04/22/25920 And Insulin Lispro (Humalog) injection 0-18 Units 0-18 Units SubCUTAneous Nightly Alberto Boogie NP [START ON 04/24/2025] lactated Ringer's infusion 100 mL/hr IntraVENous Continuous Cari Maribel Ling MD linaGLIPtin (Tradjenta) tablet 5 mg 5 mg Oral Daily Alberto Boogie DATA MANAGEMENT CONSULTANT 5 mg at 04/22/25945 meropenem (Merrem) 2,000 mg in sodium chloride 0.9 % 100 mL IVPB 2,000 mg IntraVENous q8h Kerwin Ricci DO midodrine (Proamatine) tablet 10 mg 10 mg Oral TID Alberto Boogie NP 10 mg at 04/22/25920 mirtazapine (Remeron) tablet 7.5 mg 7.5 mg Oral Nightly Alberto Boogie, TREVOR naloxone (Narcan) nasal spray 4 mg 4 mg Nasal PRN Alberto Boogie NP ondansetron ODT (Zofran-ODT) disintegrating tablet 4 mg 4 mg Oral q8h PRN Alberto Boogie, DATA MANAGEMENT CONSULTANT Or ondansetron (Zofran) injection 4 mg 4 mg IntraVENous q6h PRN Alberto Boogie, TREVOR oxyCODONE (Roxicodone) immediate release tablet 15 mg 15 mg Oral 4x daily Alberto Boogie DATA MANAGEMENT CONSULTANT 15 mg at 04/22/25920 polyethylene glycol (PEG) 3350 (Miralax) packet 17 g 17 g Oral BID Alberto Boogie, DATA MANAGEMENT CONSULTANT 17 g at 04/22/25 0921 polyethylene glycol (PEG) 3350 (Miralax) packet 17 g 17 g Oral Daily PRN Alberto Boogie, DATA MANAGEMENT CONSULTANT pregabalin (Lyrica) capsule 200 mg 200 mg Oral TID Alberto Boogie, DATA MANAGEMENT CONSULTANT 200 mg at 04/22/25 0920 senna-docusate sodium (Senokot-S) 8.6-50 MG tablet 2 tablet 2 tablet Oral BID Alberto Miltons, DATA MANAGEMENT CONSULTANT 2 tablet at 04/22/25 0921 sodium chloride 0.9% (NS) flush 10 mL 10 mL IntraCATHeter q12h Alberto Miltons, DATA MANAGEMENT CONSULTANT 10 mL at 04/22/25 0634 sodium chloride 0.9% (NS) flush 10 mL 10 mL IntraCATHeter PRN Alberto Miltons, DATA MANAGEMENT CONSULTANT tamsulosin (Flomax) 24 hr capsule 0.4 mg 0.4 mg Oral Daily Alberto Boogie, DATA MANAGEMENT CONSULTANT 0.4 mg at 04/22/25 0922 vancomycin IVPB 1500 mg in 250 mL NS (premix) 1,500 mg IntraVENous q12h Alberto Boogie, DATA MANAGEMENT CONSULTANT [4] No Known Allergies [5] No family history on file. Associated Order(s): IP CONSULT TO GENERAL SURGERY Images from the original note were not included. Department of General Surgery Surgical Service - [facility] Resident Consult Note 04/22/2025 CHIEF COMPLAINT: Chief Complaint Patient presents with Wound Infection Per EMS pt was sent here from the [place] for wound infections. Pt has two wound [...] chronic sacral wounds who presents from his [facility] after he states the nurses have become [...] This note may have been dictated using [employer] Medical Practice Edition 2.6 and/or [employer] Voice Recognition Feature. The document was proofread; however, unrecognized voice recognition qa internship errors may be present. [1] Past Medical [...] mg 650 mg Oral q6h PRN Alberto Daniel Boogie NP Or acetaminophen (Tylenol) suppository 650 mg 650 mg Rectal q6h PRN Alberto Sanchez Keagan, TREVOR [Held by provider] apixaban (Eliquis) tablet 5 mg 5 mg Oral BID Alberto Sanchez TREVOR Boogie bisacodyl (Dulcolax) EC tablet 5 mg 5 mg Oral Daily PRN Alberto Sanchez Keagan, TREVOR bisacodyl (Dulcolax) suppository 10 mg 10 mg Rectal Daily PRN Alberto Sanchez Keagan, TREVOR calcium carbonate (Tums) chewable tablet 1,000 mg 1,000 mg Oral q8h PRN Alberto Sanchez Keagan, TREVOR cefepime (Maxipime) 2,000 mg in sodium chloride 0.9 % 50 mL IVPB Mini-Bag Plus 2,000 mg IntraVENous q8h Alberto Sanchez Keagan, TREVOR cyclobenzaprine (Flexeril) tablet 10 mg 10 mg Oral TID PRN Alberto Sanchez Keagan, TREVOR dextrose 5 % infusion 100 mL/hr IntraVENous PRN Alberto Sanchez Keagan, TREVOR dextrose 50 % solution 12.5 g 12.5 g IntraVENous PRN Alberto Sanchez Keagan, TREVOR DULoxetine (Cymbalta) DR capsule 30 mg 30 mg Oral Daily Alberto Sanchez TREVOR Boogie ferrous sulfate tablet 325 mg 325 mg Oral Daily with breakfast Alberto Sanchez TREVOR Boogie glucagon (human recombinant) injection 1 mg 1 mg IntraMUSCular PRN Alberto Sanchez Keagan, TREVOR glucose oral gel 15 g 15 g Oral PRN Alberto Sanchez Keagan, TREVOR insulin glargine (Lantus) injection 45 Units 45 Units SubCUTAneous q AM Alberto Sanchez TREVOR Boogie Insulin Lispro (Humalog) injection 0-18 Units 0-18 Units SubCUTAneous TID WC Alberto MiltonTREVOR najera And Insulin Lispro (Humalog) injection 0-18 Units 0-18 Units SubCUTAneous Nightly Alberto BoogieTREVOR linaGLIPtin (Tradjenta) tablet 5 mg 5 mg Oral Daily Alberto MiltonTREVOR najera midodrine (Proamatine) tablet 10 mg 10 mg [...] Resource Strain: Low Risk (04/24/2023) Received from [facility] Overall Financial Resource Strain (CARDIA) Difficulty [...] appropriate exam and evaluation Meliton Carrero MD, [facility] Trauma, Surgical Critical Care & Acute Care Surgery Division of Trauma Department of Surgery [facility] [1] Patient Active Problem List [...] creatinine, and vancomycin levels interfaced automatically to [facility] and data has been analyzed and interpreted. [...] via Secure Chat documented in this encounter [facility] 04-22-2025 Note Hospitalist Progress Note 04/22/2025 [...] intensive monitoring: parenteral (more content not included)... [facility] 04-22-2025 Plan of care note Problem: [...] monitored and maintained or improved Outcome: Progressing [facility] 04-22-2025 Note Pharmacy to Dose Van comycin - Progress Note Lab Results Component Value Date CREATININE 0.65 (L) 04/21/2025 BUN 10 04/21/2025 WBC 12.5 (H) 04/21/2025 VANCORANDOM 12.3 (L) 04/16/2024 VANCOTROUGH 12.4 04/22/2025 Doses, serum creatinine, and vancomycin levels interfaced automatically to [facility] and data has been analyzed and interpreted. [...] PharmD Clinical Pharmacist Available via Secure Chat [facility] 04-22-2025 Plan of care note Problem: [...] maintained or improved Outcome: Progressing [facility] 04-22-2025 Consult note Associated Order (s): IP CONSULT TO GENERAL SURGERY Images from the original note were not included. Department of General Surgery Surgical Service - [facility] Resident Consult Note 04/22/2025 CHIEF COMPLAINT: Chief Complaint Patient presents with Wound Infection Per EMS pt was sent here from the [place] for wound infections. Pt has two wound [...] s/p surgical complication with Dr. Ashley at [facility], HLD, HTN, MDD, OA, a-fib on eliquis, chronic sacral wounds who presents from his [facility] after he states the nurses have become [...] Narrative: Patient Name: ANMOL REYNOLDS : 1960 [id number] Exam Date/Time: 04/22/2025 00:01 Procedure: CT PELVIS [...] This note may have been dictated using [employer] Medical Practice Edition 2.6 and/or [employer] Voice Recognition Feature. The document was proofread; however, unrecognized voice recognition qa internship errors may be present. [1] Past Medical [...] mg 650 mg Rectal q6h PRN Alberto Daniel Boogie NP [Held by provider] apixaban (Eliquis) tablet 5 mg 5 mg Oral BID Alberto Daniel Boogie NP bisacodyl (Dulcolax) EC tablet 5 mg 5 mg Oral Daily PRN Alberto Sanchez TREVOR Boogie bisacodyl (Dulcolax) suppository 10 mg 10 mg Rectal Daily PRN Alberto Sanchez TREVOR Boogie calcium carbonate (Tums) chewable tablet 1,000 mg 1,000 mg Oral q8h PRN Alberto Boogie NP cefepime (Maxipime) 2,000 mg in sodium chloride 0.9 % 50 mL IVPB Mini-Bag Plus 2,000 mg IntraVENous q8h Alberto Boogie NP cyclobenzaprine (Flexeril) tablet 10 mg 10 mg Oral TID PRN Alberto Daniel Boogie NP dextrose 5 % infusion 100 mL/hr IntraVENous PRN Alberto Boogie NP dextrose 50 % solution 12.5 g 12.5 g IntraVENous PRN Alberto Sanchez TREVOR Boogie DULoxetine (Cymbalta) DR capsule 30 mg 30 mg Oral Daily Alberto Daniel Boogie NP ferrous sulfate tablet 325 mg 325 mg Oral Daily with breakfast Ross G Terral, DATA MANAGEMENT CONSULTANT glucagon (human recombinant) injection 1 mg 1 mg IntraMUSCular PRN Alberto Miltons, DATA MANAGEMENT CONSULTANT glucose oral gel 15 g 15 g Oral PRN Alberto Miltons, DATA MANAGEMENT CONSULTANT insulin glargine (Lantus) injection 45 Units 45 Units SubCUTAneous q AM Alberto Miltons, DATA MANAGEMENT CONSULTANT Insulin Lispro (Humalog) injection 0-18 Units 0-18 Units SubCUTAneous TID WC Alberto Miltons, DATA MANAGEMENT CONSULTANT And Insulin Lispro (Humalog) injection 0-18 Units 0-18 Units SubCUTAneous Nightly Alberto Miltons, DATA MANAGEMENT CONSULTANT linaGLIPtin (Tradjenta) tablet 5 mg 5 mg Oral Daily Alberto Sanchez Terral, DATA MANAGEMENT CONSULTANT midodrine (Proamatine) tablet 10 mg 10 mg Oral TID Alberto Miltons, DATA MANAGEMENT CONSULTANT mirtazapine (Remeron) tablet 7.5 mg 7.5 mg Oral Nightly Alberto Miltons, DATA MANAGEMENT CONSULTANT naloxone (Narcan) nasal spray 4 mg 4 mg Nasal PRN Alberto Miltons, DATA MANAGEMENT CONSULTANT ondansetron ODT (Zofran-ODT) disintegrating tablet 4 mg 4 mg Oral q8h PRN Alberto Miltons, DATA MANAGEMENT CONSULTANT Or ondansetron (Zofran) injection 4 mg 4 mg IntraVENous q6h PRN Alberto Miltons, DATA MANAGEMENT CONSULTANT oxyCODONE (Roxicodone) immediate release tablet 15 mg 15 mg Oral 4x daily Alberto Miltons, DATA MANAGEMENT CONSULTANT polyethylene glycol (PEG) 3350 (Miralax) packet 17 g 17 g Oral BID Alberto Miltons, DATA MANAGEMENT CONSULTANT polyethylene glycol (PEG) 3350 (Miralax) packet 17 g 17 g Oral Daily PRN Alberto Miltons, DATA MANAGEMENT CONSULTANT pregabalin (Lyrica) capsule 200 mg 200 mg Oral TID Alberto Boogie, DATA MANAGEMENT CONSULTANT senna-docusate sodium (Senokot-S) 8.6-50 MG tablet 2 tablet 2 tablet Oral BID Alberto Miltons, DATA MANAGEMENT CONSULTANT tamsulosin (Flomax) 24 hr capsule 0.4 mg 0.4 mg Oral Daily Alberto Miltons, DATA MANAGEMENT CONSULTANT vancomycin IVPB 1500 mg in 250 mL NS (premix) 1,500 mg IntraVENous q12h Alberto Boogie, DATA MANAGEMENT CONSULTANT [4] Social History Socioeconomic History Marital status: [...] Resource Strain: Low Risk (04/24/2023) Received from [facility] Overall Financial Resource Strain (CARDIA) Difficulty [...] Surgery Division of Trauma Department of Surgery [facility] [1] Patient Active Problem List [...] Other acute osteomyelitis, other site ([facility]) [facility] 04-22-2025 Consult note Formatting of th [...] creatinine, and vancomycin levels interfaced automatically to [facility] and data has been analyzed and interpreted. [...] Clinical Pharmacist Available via Secure Chat T [facility] 04-22-2025 History and physical note Attending History and Physical Admit Date: 04/21/2025 PCP: Tab Dupont CHIEF COMPLAINT: Wound infection Reason for Admission: Osteomyelitis History Obtained From: patient HISTORY OF PRESENT ILLNESS: Anmol is a 64 y.o. male with past medical history below who presents with chief complaint listed above. Patient sent to [facility] to leave the patient's wounds on his sacrum were worsening and becoming infected. Patient is a paraplegic for the last 4 years after surgical complication with Dr. Ashley at [facility]. ER workup was significant for [...] he normally does but states that the [facility] felt like his wounds were getting worse [...] Resource Strain: Low Risk (04/24/2023) Received from [facility] Overall Financial Resource Strain (CARDIA) Difficulty of Paying Living Expenses: Not hard at all Food Insecurity: No Food Insecurity (02/17/2025) Received from [facility] Hunger Vital Sign Worried About Running Out of Food in the Last Year: Never true Ran Out of Food in the Last Year: Never true Transportation Needs: No Transportation Needs (02/17/2025) Received from [facility] PRAPARE - Transportation Lack of Transportation (Medical): No Lack of Transportation (Non-Medical): No Physical Activity: Not on file Stress: Not on file Social Connections: Not on file Intimate Partner Violence: Not At Risk (05/18/2024) Humiliation, Afraid, Rape, and Kick questionnaire Fear of Current or Ex-Partner: No Emotionally Abused: No Physically Abused: No Sexually Abused: No Housing Stability: Unknown (02/17/2025) Received from [facility] Housing Stability Vital Sign Unable to [...] - DO NOT do CPR, intubation] [_] [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 Mike Bueno MD [employer] Phone: 04-22-2025 Note Attestation signed by Georgette [...] chief complaint listed above. Patient sent to [facility] ER [facility] staff to leave the patient's wounds on his sacrum were worsening and becoming infected. Patient is a paraplegic for the last 4 years after surgical complication with Dr. Ashley at [facility]. ER workup was significant for [...] he normally does but states that the [facility] felt like his wounds were getting worse [...] Resource Strain: Low Risk (04/24/2023) Received from [facility] Overall Financial Resource Strain (CARDIA) Difficulty of Paying Living Expenses: Not hard at all Food Insecurity: No Food Insecurity (02/17/2025) Received from [facility] Hunger Vital Sign Worried About Running Out of Food in the Last Year: Never true Ran Out of Food in the Last Year: Never true Transportation Needs: No Transportation Needs (02/17/2025) Received from [facility] PRAPARE - Transportation Lack of Transportation (Medical): No Lack of Transportation (Non-Medical): No Physical Activity: Not on file Stress: Not on file Social Connections: Not on file Intimate Partner Violence: Not At Risk (05/18/2024) Humiliation, Afraid, Rape, and Kick questionnaire Fear of Current or Ex-Partner: No Emotionally Abused: No Physically Abused: No Sexually Abused: No Housing Stability: Unknown (02/17/2025) Received from [facility] Housing Stability Vital Sign Unable to [...] Normal rate a (more content not included)... [facility] 04-22-2025 History and physical note Attending History and Physical Admit Date: 04/21/2025 PCP: Tab Dupont CHIEF COMPLAINT: Wound infection Reason for Admission: Osteomyelitis History Obtained From: patient HISTORY OF PRESENT ILLNESS: Anmol is a 64 y.o. male with past medical history below who presents with chief complaint listed above. Patient sent to [facility] ER [facility] to leave the patient's wounds on his sacrum were worsening and becoming infected. Patient is a paraplegic for the last 4 years after surgical complication with Dr. Ashley at [facility]. ER workup was significant for [...] he normally does but states that the [facility] felt like his wounds were getting worse [...] Resource Strain: Low Risk (04/24/2023) Received from [facility] Overall Financial Resource Strain (CARDIA) Difficulty of Paying Living Expenses: Not hard at all Food Insecurity: No Food Insecurity (02/17/2025) Received from [facility] Hunger Vital Sign Worried About Running Out of Food in the Last Year: Never true Ran Out of Food in the Last Year: Never true Transportation Needs: No Transportation Needs (02/17/2025) Received from [facility] PRAPARE - Transportation Lack of Transportation (Medical): No Lack of Transportation (Non-Medical): No Physical Activity: Not on file Stress: Not on file Social Connections: Not on file Intimate Partner Violence: Not At Risk (05/18/2024) Humiliation, Afraid, Rape, and Kick questionnaire Fear of Current or Ex-Partner: No Emotionally Abused: No Physically Abused: No Sexually Abused: No Housing Stability: Unknown (02/17/2025) Received from [facility] Housing Stability Vital Sign Unable to [...] - DO NOT do CPR, intubation] [_] [DNR-STEEL ERECTOR APPRENTICE - Comfort care only] [_] DNR form [...] Mike Bueno MD documented in this encounter [facility] 04-21-2025 Emergency department Note Placed new meplix pads on open wounds on sacrum. Pictures updated in pt's chart. [facility] 04-21-2025 Emergency department Note Placed new meplix pads on open wounds on sacrum. Pictures updated in pt's chart. EMERGENCY DEPARTMENT ENCOUNTER Pt Name: Anmol Reynolds Birthdate 1960 Date of evaluation: 04/21/2025 ED Provider: Chele León MD CHIEF COMPLAINT Chief Complaint Patient presents with Wound Infection Per EMS pt was sent here from the [place] for wound infections. Pt has two wound [...] Procedure Abnormality Status --------- ------ Culture, Aerobic Bacteri...[[id number]] Abnormal Preliminary result Anaerobic culture[[id number]] In process Please view results for these [...] Resource Strain: Low Risk (04/24/2023) Received from [facility] Overall Financial Resource Strain (CARDIA) Difficulty of Paying Living Expenses: Not hard at all Food Insecurity: No Food Insecurity (02/17/2025) Received from [facility] Hunger Vital Sign Worried About Running Out of Food in the Last Year: Never true Ran Out of Food in the Last Year: Never true Transportation Needs: No Transportation Needs (02/17/2025) Received from [facility] PRAPARE - Transportation Lack of Transportation (Medical): No Lack of Transportation (Non-Medical): No Intimate Partner Violence: Not At Risk (05/18/2024) Humiliation, Afraid, Rape, and Kick questionnaire Fear of Current or Ex-Partner: No Emotionally Abused: No Physically Abused: No Sexually Abused: No Housing Stability: Unknown (02/17/2025) Received from [facility] Housing Stability Vital Sign Unable to Pay for Housing in the Last Year: No Homeless in the Last Year: No Chele León MD Resident 04/22/25218 Cosigned by Brad Campos MD at 04/22/2025 2:22 AM EDT documented in this encounter [facility] 04-21-2025 Physician Emergency department Note EMERGENCY DEPARTMENT ENCOUNTER Pt Name: Anmol Reynolds Birthdate 1960 Date of evaluation: 04/21/2025 ED Provider: Chele León MD CHIEF COMPLAINT Chief Complaint Patient presents with Wound Infection Per EMS pt was sent here from the [place] for wound infections. Pt has two wound [...] Response: Oriented Best Motor Response: Follows commands [place] Coma Scale Score: 15 PHYSICAL EXAM ED [...] Procedure Abnormality Status --------- ------ Culture, Aerobic Bacteri...[[id number]] Abnormal Preliminary result Anaerobic culture[[id number]] In process Please view results for these [...] received IV vancomycin, IV cefepime for coverage. [facility] hospitalist was consulted for admission for [...] Resource Strain: Low Risk (04/24/2023) Received from [facility] Overall Financial Resource Strain (CARDIA) Difficulty of Paying Living Expenses: Not hard at all Food Insecurity: No Food Insecurity (02/17/2025) Received from [facility] Hunger Vital Sign Worried About Running Out of Food in the Last Year: Never true Ran Out of Food in the Last Year: Never true Transportation Needs: No Transportation Needs (02/17/2025) Received from [facility] PRAPARE - Transportation Lack of Transportation (Medical): No Lack of Transportation (Non-Medical): No Intimate Partner Violence: Not At Risk (05/18/2024) Humiliation, Afraid, Rape, and Kick questionnaire Fear of Current or Ex-Partner: No Emotionally Abused: No Physically Abused: No Sexually Abused: No Housing Stability: Unknown (02/17/2025) Received from [facility] Housing Stability Vital Sign Unable to Pay for Housing in the Last Year: No Homeless in the Last Year: No Cheel León MD Resident 04/22/25 0219 Cosigned by Brad Campos MD at 04/22/2025 2:22 AM EDT [facility] 04-21-2025 Physician Emergency department Note Patient: [...] ago. States that he is at a [facility] and they were concerned that his wounds [...] EMS pt was sent here from the [place] for wound infections. Pt has two wound [...] Family History[3] SOCIAL HISTORY Social History[4] SCREENINGS [place] Coma Scale Best Eye Response: Spontaneous Best [...] Procedure Abnormality Status --------- ------ Culture, Aerobic Bacteri...[[id number]] Abnormal Preliminary result Anaerobic culture[[id number]] In process Please view results for these [...] (premix) (1,500 mg IntraVENous New Bag 04/22/25 002) sodium chloride 0.9 % bolus 1,000 mL [...] Resource Strain: Low Risk (04/24/2023) Received from [facility] Overall Financial Resource Strain (CARDIA) Difficulty of Paying Living Expenses: Not hard at all Food Insecurity: No Food Insecurity (02/17/2025) Received from [facility] Hunger Vital Sign Worried About Running Out of Food in the Last Year: Never true Ran Out of Food in the Last Year: Never true Transportation Needs: No Transportation Needs (02/17/2025) Received from [facility] PRAPARE - Transportation Lack of Transportation (Medical): No Lack of Transportation (Non-Medical): No Intimate Partner Violence: Not At Risk (05/18/2024) Humiliation, Afraid, Rape, and Kick questionnaire Fear of Current or Ex-Partner: No Emotionally Abused: No Physically Abused: No Sexually Abused: No Housing Stability: Unknown (02/17/2025) Received from [facility] Housing Stability Vital Sign Unable to Pay for Housing in the Last Year: No Homeless in the Last Year: No Brad Campos MD 04/22/25 0201 [employer] Phone: 03-24-2025 Telephone encounter Note Per op note pt should get a renal US in [address]. [address] the order? [facility] 03-24-2025 Miscellaneous Notes Per op note pt should get a renal US in [address] the order? documented in this encounter [facility] 03-20-2025 Note HNO ID: [id number] Author: JAX VALENZUELA APRN.CRNA Service: Anesthesiology Author Type: Nurse Rat Poisoner Type: Anesthesia Procedure Notes Filed: 03/20/2025 10:33 [...] Imaging Guidance Used: No SIGNATURE: Jax Valenzuela APRN.INDUSTRIAL ENG PATIENT NAME: Anmol Reynolds DATE: March 20, 2025 TIME: 10:32 AM CSN: [id number] [facility] 03-20-2025 Note HNO ID: [id number] Author: JAX VALENZUELA APRN.CRNA Service: Anesthesiology Author Type: Nurse Rat Poisoner Type: Anesthesia Procedure Notes Filed: 03/20/2025 10:32 Note Text: ANESTHESIOLOGY PROCEDURE NOTE Airway General Information Procedure Start Time/Medication Administration: 03/20/2025 10:27 AM Procedure End Time: 03/20/2025 10:27 AM Patient location during procedure: OR Consent Obtained: Yes Patient identity confirmed: arm band and patient Staffing INDUSTRIAL ENG: Jax Valenzuela APRN.INDUSTRIAL ENG Performed by: BENJA Indications and Patient Condition [...] March 20, 2025 TIME: 10:32 AM CSN: [id number] [facility] 03-15-2025 Telephone encounter Note Spoke to nursing facility who states Pt is going to proceed with surgery at [facility]. [facility] 03-15-2025 Miscellaneous Notes Spoke to nursing facility who states Pt is going to proceed with surgery at [facility]. Left message for Pts nurse to call me back. Can you call [facility] and see if they are going to send disc to us? Or if patient still scheduled for procedure at [facility]. [place] [facility] number: [phone] Still need disc with images. Will need to review with Dr. Grimm. Is it OK to get Pt scheduled for surgery? Please advise. Talked to staff from [facility] that patient would like to have procedure at [facility]. Requested that CD with images from [facility] be sent to [facility] urology. Staff will let Farideh know- she does scheduling/arranges procedures for residents. [phone] documented in this encounter [facility] 03-15-2025 Telephone encounter Note Left message for Pts nurse to call me back. [facility] 03-14-2025 Note HNO ID: [id number] Author: MILAD GOODSON MD Service: ? Author Type: Physician Type: Progress Notes Filed: 03/20/2025 10:37 Note Text: INFECTIOUS DISEASE WOUND CENTER NOTE Patient Name: Anmol Reynolds Date: 03/14/2025 ASSESSMENT: Worsening ischial wound post hospitalization at [facility] recently Chronic sacral S5 segment chronic osteomyelitis [...] clinical infection in the area Wound center PATTERN MARKING SUPERVISOR follow up in 1 week INTERVAL HISTORY: ROS done with pt and negative unless stated. Was recently admitted to [facility] and needed intubation and ventilation. Since that [...] 11/25/2021 8 09/06/2021 (more content not included)... [facility] [facility] History of Present illness Narrative Images from the original note were not included. INFECTIOUS DISEASE WOUND CENTER NOTE Patient Name: Anmol Reynolds Date: 03/14/2025 ASSESSMENT: Worsening ischial wound post hospitalization at [facility] recently Chronic sacral S5 segment chronic osteomyelitis [...] clinical infection in the area Wound center PATTERN MARKING SUPERVISOR follow up in 1 week INTERVAL HISTORY: ROS done with pt and negative unless stated. Was recently admitted to [facility] and needed intubation and ventilation. Since that [...] with multiple staff Home Care Company/Nursing Facility: [facility] Consent captured for debridement per (Provider) and good until Special Instructions (for example, patient stands at the bedside for exam/dressing): bed Anticoagulant Therapy: Eliquis Living Situation [facility]ie... [facility]: facility Who [...] BY PROVIDER: Anesthetic Used: N/A applied per experimental mechanic spacecraft # 1 & 2 Other procedure: Specimen [...] order date DME: [employer] , PH: [phone] SPECIAL NEEDS: EFax orders to [facility] [phone] Emotional support N/A OR set-up N/A Car Tester N/A Incontinence needs N/A DISCHARGED in stable [...] be drawn PARI and results faxed to [facility] [phone] Stop smoking EDUCATION: The patient/family was instructed [...] to ANY of questions 5-9, [facility] the [facility] documented in this encounter [facility] 03-14-2025 Instructions Dawood Tiwari RN - 03/14/2025 2:16 PM EDT WOUND CARE INSTRUCTIONS- Anmol Reynolds Wound location: sacrum & left ischium [facility] Wound Cleansing: -Gather supplies -Place down a [...] following changes to the Wound Center at [phone] or go to the Emergency Department: Fever or chills Increased drainage Green or yellow drainage Foul odor Increased pain Hardness around the wound Redness, warmth or swelling of the surrounding tissue Color change to the wound When contacting the wound center at the ([phone]): Leave a message that includes your full [...] be drawn PARI and results faxed to [facility] [phone] Stop smoking Milad Goodson MD/jose/lt documented in this encounter [facility] 03-14-2025 Note HNO ID: [id number] Author: DAWOOD TIWARI RN Service: ? Author Type: Registered Nurse Type: Progress Notes Filed: 03/14/2025 14:54 Note Text: Nursing Documentation Pertinent Medical History: paraplegia, MRSA, osteomyelitis, UTI, DM2, neuropathy, pyelonephritis, Wound Etiology according to patient: sacrum wound has had for four years per pt Patient arrived via: self in motorized wheelchair - patient is a [place] with multiple staff [facility] Consent captured for debridement per (Provider) and good until Special Instructions (for example, patient stands at the bedside for exam/dressing): bed Anticoagulant Therapy: Eliquis Living Situation (ie... [facility], [facility], [facility] Who [facility]: facility [...] BY PROVIDER: Anesthetic Used: N/A applied per experimental mechanic spacecraft # 1 AND 2 Other procedure: Specimen [...] order date DME: [employer] , PH: [phone] SPECIAL NEEDS: EFax orders to [facility] [phone] Emotional support N/A OR set-up N/A Car Tester N/A Incontinence needs N/A DISCHARGED in stable [...] be drawn PARI and results faxed to [facility] [phone] Stop smoking EDUCATION: The patient/family was instructed [...] had radiation therapy (more content not included)... [facility] 03-14-2025 Note Can you call jas [facility]choa and see if they are going to send disc to us? Or if patient still scheduled for procedure at [facility]. [facility] number: [phone] [facility] 03-14-2025 Telephone encounter Note Can you call neno and see if they are going to send disc to us? Or if patient still scheduled for procedure at [facility]. [facility] number: [phone] [facility] Phone: 03-14-2025 Miscellaneous Notes Can you call [facility] and see if they are going to send disc to us? Or if patient still scheduled for procedure at [facility]. [facility] number: [phone] Still need disc with images. Will need to review with Dr. Grimm. Is it OK to get Pt scheduled for surgery? Please advise. Talked to staff from [facility] that patient would like to have procedure at [facility]. Requested that CD with images from [facility] be sent to [facility] urology. Staff will let Farideh know- she does scheduling/arranges procedures for residents. [facility] number: [phone] documented in this encounter [facility] 03-13-2025 Telephone encounter Note Still need disc with images. Will need to review with Dr. Grimm. [facility] Phone: 03-13-2025 Miscellaneous Notes Still need disc with images. Will need to review with Dr. Grimm. Is it OK to get Pt scheduled for surgery? Please advise. Talked to staff from [facility] that patient would like to have procedure at [facility]. Requested that CD with images from [facility] be sent to [facility] urology. Staff will let Farideh know- she does scheduling/arranges procedures for residents. [facility] number: [phone] documented in this encounter [facility] 03-13-2025 Telephone encounter Note Is it OK to get Pt scheduled for surgery? Please advise. [facility] 03-08-2025 Telephone encounter Note Patient is scheduled and [facility] was notified. Information was faxed. Comfort Sotelo [facility] 03-08-2025 Miscellaneous Notes Patient is scheduled and [facility] was notified. Information was faxed. Comfort Sotelo Needs outpt cysto, pyelograms, bilateral stent change vs removal in 2-3 weeks. documented in this encounter [facility] 03-07-2025 Note Talked to staff from [facility] that patient would like to have procedure at [facility]. Requested that CD with images from [facility] be sent to [facility] urology. Staff will let Farideh know- she does scheduling/arranges procedures for residents. [facility] number: [phone] [facility] 03-07-2025 Telephone encounter Note Talked to staff from [facility] that patient would like to have procedure at [facility]. Requested that CD with images from [facility] be sent to [facility] urology. Staff will let Farideh know- she does scheduling/arranges procedures for residents. [facility] number: [phone] [facility] 03-07-2025 Miscellaneous Notes Talked to staff from [facility] that patient would like to have procedure at [facility]. Requested that CD with images from [facility] be sent to [facility] urology. Staff will let Farideh know- she does scheduling/arranges procedures for residents. [facility] number: [phone] documented in this encounter [facility] 03-07-2025 History of Present illness Narrative Images from the original note were not included. JOE Burks CNP 03/07/2025 9:15 AM Urology Office Visit [facility] [address], [facility] [address] [id number] PATIENT NAME: Anmol Franco Given DATE OF [...] negative rods. Treated. Follow up outpatient with [facility] urology Patient is scheduled for surgery w Dr Maria on 03/20/25 however he prefers treatment at [facility] Will need images for surgery [...] 8. Details above. 9. Follow-up as indicated. Pleat Patternmaker: CECILIA Transcribe Date/Time: Feb 16 2025 10:02P Dictated by : CORBIN PERRY MD This examination was interpreted and the report reviewed and electronically signed by: CORBIN PERRY MD on Feb 16 2025 10:34PM EST Narrative * * *Final Report* * * DATE OF EXAM: Feb 16 2025 8:33PM [facility] 0530 - CT ABD/PEL W IVCON [...] No follow-ups on file. JOE Burks CNP [facility] Please note that portions of this chart were dictated using [employer] voice recognition software. It is possible that [...] No Known Allergies documented in this encounter [facility] 03-07-2025 Instructions JOE Burks CNP - 03/07/2025 9:00 AM EDT Need images from [facility] on disc brought to office for review in order for patient to have ureteral stent treatment at [facility]. Patient prefers [facility]. CT abdomen/pelvis 02/16/25 XR abdomen 02/16/25 and 02/17/25 Planning for ESWL vs laser litho w stent exchange. documented in this encounter [facility] 02-22-2025 Note HNO ID: [id number] Author: JESSICA CLEMENT RPh Service: Pharmacy Author [...] discharge medication list. Jessica Clement RPh Pager: [phone] 02/22/2025 3:26 PM Medication List START taking [...] 100 unit/mL solution Generic drug: insulin glargine-yfgn [facility] 02-22-2025 Note HNO ID: [id number] Author: ANDREA PALENCIA RN Service: Care Management Author Type: Registered Nurse Type: Care Mgt Progress Note Filed: 02/22/2025 15:26 Note Text: CARE MANAGEMENT DISCHARGE NOTE SERVICE DATE: February 22, 2025 SERVICE TIME: 3:24 PM Admission Date: 02/16/2025 LOS: 5 days Discharge Arrangement Discharge Arrangement: Extended Care Facility Services Arranged Provider Name: [facility] Caregiver Assessment Caregiver is ready, willing and able to meet the patient's needs as recommended by the inter-professional team: Yes Name of Caregiver: Facility staff Transportation Arrangements Transportation Arrangements: Ambulance Transportation Agency and Phone #:: [facility] ( [facility] ) [phone] / [phone] Date of Trip: 02/22/25 Time of Trip: 1999 Type of Service: BLS Non-emergency Is Patient Medicaid Pending?: No Was transportation financial coverage discussed with family?: 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 Destination: Return to [facility] Financial Care Management Responsibility: None Handoff Communication: Additional Information: Met with pt and he is agreeable to return to [facility]. Will D/C today at 8 pm via cot with [employer].. D/C paperwork sent electronically and RN to call N2N report. Pt stated he called his brother re: the D/C and time of return to [facility]. SIGNATURE: Andrea Palencia RN PATIENT NAME: Anmol Given DATE: February 22, 2025 TIME: 3:24 PM [facility] 02-22-2025 Note HNO ID: [id number] Author: ANDREA PALENCIA RN Service: Care Management Author Type: Registered Nurse Type: Care Mgt Progress Note Filed: 02/22/2025 15:22 Note Text: CARE MANAGEMENT PROGRESS NOTE SERVICE DATE: 02/22/2025 SERVICE TIME: 3:22 PM LOS: 5 days IMM Follow Up Copy Given: Yes Copy given to:: Patient Shoe Turner Name/Relationship: Daughter Sumi Method: In Person Met with pt in room and explained the IMM, he states he understands. He is agreeable to D/C. SIGNATURE: Andrea Palencia RN PATIENT NAME: Anmol Given DATE: February 22, 2025 TIME: 3:22 PM [facility] 02-22-2025 Note HNO ID: [id number] Author: ANDREA PALENCIA RN Service: Care Management Author Type: Registered Nurse Type: Care Mgt Progress Note Filed: 02/22/2025 13:53 Note Text: CARE MANAGEMENT PROGRESS NOTE SERVICE DATE: 02/22/2025 SERVICE TIME: 1:53 PM LOS: 5 days IMM Follow Up Copy Given: Yes Copy given to:: Patient Shoe Turner Shoe Turner Name/Relationship: Daughter Sumi Method: By Phone SIGNATURE: Andrea Palencia RN PATIENT NAME: Anmol Given DATE: February 22, 2025 TIME: 1:53 PM [facility] 02-21-2025 Note HNO ID: [id number] Author: ANDREA PALENCIA RN Service: Care Management Author Type: Registered Nurse Type: Care Mgt Progress Note Filed: 02/21/2025 15:41 Note Text: CARE MANAGEMENT PROGRESS NOTE SERVICE DATE: 02/21/2025 SERVICE TIME: 3:39 PM LOS: 4 days D/C plan to return To [facility] when medically ready. D/C packet created and will need cot transport when ready. SIGNATURE: Andrea Palencia RN PATIENT NAME: Anmol Given DATE: February 21, 2025 TIME: 3:39 PM [facility] 02-21-2025 Note HNO ID: [id number] Author: BRIA SHER MD Service: Hospital Medicine Author Type: Physician Type: Progress Notes Filed: 02/21/2025 13:23 Note Text: DEPARTMENT OF HOSPITAL MEDICINE Hospital Medicine/Primary Attending: Bria Sher MD NIGHT AND WEEKEND COVERAGE: After 7pm please page [phone] MEDICATIONS: Current Facility-Administered Medications Medication Dose Route [...] -- -- -- 1.2 BMP: Recent Labs 02/21/2545302/20/2553802/19/2541802/18/2541902/17/2522402/16/25 1922 GLUC 162* 90 115* 177* 225* 131* NA 135* 141 137 135* 132* 136 K 4.1 4.1 3.7 3.9 4.7 4.4 CHLOR 105 110* 106 104 104 105 CO2 21* 23 21* 20* 17* 17* ANION 9 8 10 11 11 14 BUN 21 25* 36* 37* 34* 33* CREAT 0.58* 0.60* 0.64* 1.04 1.90* 2.35* CHEM: Recent Labs 02/21/2545302/20/2553802/19/2541802/18/2541902/17/2522402/16/25 1922 ALB 2.5* 2.3* 2.3* 2.3* 2.5* 2.3* TPROT 6.6 5.7* 5.5* 5.8* 6.0* 5.9* CA 8.2* 7.7* 7.8* 7.8* 8.2* 7.7* MG -- -- -- 2.3 -- 1.6* HEPATIC: Recent Labs 02/21/2545302/20/2539 02/19/25 0419 02/18/25 0420 02/17/25 0225 02/16/25 [...] NTND, bowel sounds (more content not included)... [facility] 02-20-2025 Note HNO ID: [id number] Author: YOANA OROSCO, LIBRADO Service: ? Author Type: Registered Nurse Type: Nursing Progress Note Filed: 02/20/2025 18:07 Note Text: Other: Report called to 4100 RN. [facility] 02-20-2025 Note HNO ID: [id number] Author: GAYLE SCOTT MD Service: Infectious Disease [...] to urology. 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 Spinal cord injury residing at [facility], presented to [facility] 02/16/2025 for unresponsiveness when normally alert [...] that although she was not at the [facility] she was called and told he was [...] PRN Or d (more content not included)... [facility] 02-20-2025 Note HNO ID: [id number] Author: PENNY VILLASEÑOR RN Service: Care Management Author Type: Registered Nurse Type: Care Mgt Progress Note Filed: 02/20/2025 16:13 Note Text: CARE MANAGEMENT PROGRESS NOTE SERVICE DATE: 02/20/2025 SERVICE TIME: 4:11 PM LOS: 3 days Needs Prior to Discharge: Discharge Transportation DC plan: [facility]. Pt is LTC and a bed hold. Updates to facility. Met with pt and provided update. Pt agreeable to return. SIGNATURE: Penny Villaseñor RN PATIENT NAME: Anmol Given DATE: February 20, 2025 TIME: 4:11 PM [facility] 02-20-2025 Note HNO ID: [id number] Author: ELIZABETH SOLER MD Service: Critical Care Author Type: Physician Type: Progress Notes Filed: 02/20/2025 13:05 Note Text: [facility] STAFF PHYSICIAN NOTE OF PERSONAL INVOLVEMENT IN CARE I have reviewed the documentation by the resident/ AALIYAH and I personally participated in the thomas components. I have discussed the case and management of the patient's care. The following comments revise or confirm relevant thomas components of the note. 64 y/o M with extensive medical hx who [facility] from [facility]. In the ED, was obtunded [...] improves Urology input appreciated, follow up at [facility] urology Remains off of amiodarone, [...] [facility] TIME of SERVICE: 8:32 AM [facility] 02-20-2025 Note HNO ID: [id number] Author: ELIZABETH SOLER MD Service: Critical Care [...] hematuria The patient initially presented to the [facility] ED on February 16, 2025 after being found unresponsive at [facility] facility. MICU was consulted for septic shock, [...] recommended patient to follow-up with urology at [facility]. Patient was extubated on 02/17 successfully. [...] Value Units Date/Time Respiratory Culture and Stain [[id number]] (Abnormal) (Susceptibility) Collected: 02/17/25 1010 Order Status: [...] Resistant Vancomycin S (more content not included)... [facility] 02-19-2025 Note HNO ID: [id number] Author: GAYLE SCOTT MD Service: Infectious Disease Author Type: Physician Type: Plan of Care Filed: 02/19/2025 18:36 Note Text: ID Continuing meropenem due to multiple gram-negative's and Enterococcus faecalis in blood and urine culture Gayle Scott MD 02/19/2025 6:36 PM pgr [phone] [facility] 02-19-2025 Telephone encounter Note Needs outpt cysto, pyelograms, bilateral stent change vs removal in 2-3 weeks. [facility] Work Phone: 02-19-2025 Note HNO ID: [id number] Author: RADHA GRAHAM cathy Service: Pharmacy Author Type: Pharmacist Type: [...] inpatient anticoagulation education is needed. Radha Graham [facility] 02-19-2025 Note HNO ID: [id number] Author: ANMOL HERBERT MD Service: Urology Author [...] was discussed with the patient or authorized appeals representative. The patient or authorized appeals representative has agreed to proceed with the [...] 87* 69* 64* 93* 108* Urinalysis: Specific Gilmore, Ur Date Value Ref Range Status 02/16/2025 [...] male with chronic bilateral stents placed at [facility] in MAY 2024 - no acute surgical intervention - remains off levo - daily labs; cr stable - plan to follow up with [facility] urology for stent removal unless becomes unstable / concern for removal needed sooner, then we would discuss OR inpatient - appreciate ICU care - urology to sign off at this time - please reach out with any questions or concerns Tiffanie Baltazar DO Urology PGY-1 February 19, 2025 10:11 AM [facility] 02-19-2025 Note HNO ID: [id number] Author: ELIZABETH SOLER MD Service: Critical Care [...] hematuria The patient initially presented to the [facility] ED on February 16, 2025 after being [facility] unresponsive at [facility] facility. MICU was consulted for septic shock, [...] recommended patient to follow-up with urology at [facility]. Patient was extubated on 02/17 successfully. [...] this admission. Pt can follow up with [facility] Urology Infectious disease: Discontinue vancomycin [...] BLOOD GAS: CBC: Recent Labs 02/19/2541802/18/2541902/17/25 1009 02/17/2522402/16/252 WBC 9.94 13.39* 14.96* 19.64* [...] Value Units Date/Time Respiratory Culture and Stain [[id number]] (Abnormal) Collected: 02/17/25 1010 Order Status: Completed Specimen: Sputum Updated: 02/18/25 0916 Culture, Respiratory Few Normal respiratory gosia present Gram Stain Few Mixed oral gosia Rare Polymorphonuclear leukocytes Few Epithelial cells Blood Culture [[id number]] (Abnormal) Collected: 02/16/25 1928 Order Status: Completed Specimen: Blood Updated: 02/18/25 1603 Culture, Blood Culture report of Enterococcus faecalis Comment: Cephalosporins, clindamycin, and TMP-SMX are not effective for the treatment of enterococcal (more content not included)... [facility] 02-19-2025 Note HNO ID: [id number] Author: NOTE, INTERFACE, ? Service: ? Author Type: ? Type: Progress Notes Filed: 02/19/2025 02:55 Note Text: Epic Scheduled Downtime: 02/19/2025 1:00:00 AM to 02/19/2025 2:37:00 AM [facility] 02-18-2025 Note HNO ID: [id number] Author: GAYLE SCOTT MD Service: Infectious Disease Author Type: Physician Type: Progress Notes Filed: 02/18/2025 12:38 Note Text: Progress Notes INFECTIOUS DISEASE May 17 at 1145 ASSESSMENT: #-Septic shock (now decreasing [...] and UTI. Spinal cord injury residing at [facility], presented to [facility] 02/16/2025 for unresponsiveness when normally alert [...] that although she was not at the [facility] she was called and told he was [...] 1 mg inje (more content not included)... [facility] 02-18-2025 Note HNO ID: [id number] Author: ANMOL HERBERT MD Service: Urology Author [...] Value 02/18/2025 69 11/25/2021 275 Urinalysis: Specific Gilmore, Ur Date Value Ref Range Status 02/16/2025 [...] male with chronic bilateral stents placed at [facility] in MAY 2024 PLAN: - No acute intervention - Given pt improvement on current regimen, no plans for surgery this admission - [facility] - Appreciate ICU care Jose Nesbitt MD PGY1 Urology 12:22 PM 02/18/25 [facility] 02-18-2025 Note HNO ID: [id number] Author: JON MCDONALD MD Service: Critical Care Author Type: Physician Type: Progress Notes Filed: 02/18/2025 13:06 Note Text: [facility] STAFF PHYSICIAN NOTE OF PERSONAL INVOLVEMENT [...] with extensive medical hx who [facility] from [facility]. In the ED, was obtunded [...] designee ICU Dispositio (more content not included)... [facility] 02-18-2025 Note HNO ID: [id number] Author: JON MCDONALD MD Service: Critical Care [...] intubation. The patient initially presented to the [facility] ED on February 16, 2025 after being found unresponsive at his [facility] facility, last known well 1700 today INTERVAL [...] this admission. Pt can follow up with [facility] Urology Infectious disease: Discontinue vancomycin [...] Value Units Date/Time Respiratory Culture and Stain [[id number]] (Abnormal) Collected: 02/17/25 1010 Order Status: Completed Specimen: Sputum Updated: 02/17/25 1328 Gram Stain Few Mixed oral gosia Rare Polymorphonuclear leukocytes Few Epithelial cells Blood Culture [[id number]] (Abnormal) Collected: 02/16/251927 Order Status: Completed Specimen: Blood Updated: 02/17/25 1049 Gram Stain Gram positive cocci in pairs and chains Gram negative bacilli Blood Culture [[id number]] (Abnormal) Collected: 02/16/251921 Order Status: Completed Specimen: [...] with IV c (more content not included)... [facility] 02-18-2025 Note HNO ID: [id number] Author: NOTE, INTERFACE, ? Service: ? Author Type: ? Type: Progress Notes Filed: 02/18/2025 03:47 Note Text: Epic Scheduled Downtime: 02/18/2025 1:00:00 AM to 02/18/2025 3:39:00 AM [facility] 02-17-2025 Note HNO ID: [id number] Author: ELLIOT GOMEZ RN Service: Care Management Author Type: Registered Nurse Type: Care Mgt Initial Assessment Filed: 02/17/2025 13:50 Note Text: CARE MANAGEMENT: ASSESSMENT AND DISCHARGE PLAN SERVICE DATE: February 17, 2025 SERVICE TIME: 1343 PCP: No primary care provider on file. Primary Contact: Extended Emergency Contact Information Primary Emergency Contact: SUMI REYNOLDS Mobile Relation: Daughter Secondary Emergency Contact: Ronald Reynolds Address: [address] [place] [address] Mobile Relation: Brother Admission Status: Inpatient Insurance Provider: [employer] GARBER MEDICARE Discharge Planning requested by: Per Department Practice Potential Transition Plans Custodial Facility/Intermediate Care Facility Advance Directives Current Advance Directive: None [employer] Content [employer] Attempted to Assist with AD Completion: Yes Action: Education Provided Current Living Arrangements and Support Lives with: Other person(s) Type of Residence: Extended Care Facility Does the patient have to climb stairs at home?: No Care Facility Name: [facility] Support: Children, Other: See Comment ECF staff How do you manage to accomplish the following: Dependent: Ambulation, Bathe/Shower, Meals/Meal Prep, Dress, Going to the bathroom, Medication Management, Transportation to appointments/community Current Services/Equipment Current Post-Acute Service(s): DME Current DME Type: Wheelchair-electric, [place] Lift Discharge Planning Patient Goal(s): General wellness [place] of Choice Explained: [place] of Choice Given: No Reason Not Given: No placements necessary Are you interested in bedside delivery of your medications? No Discharge Planning Participant(s): Patient, Children Patient/Family Comments: Caregiver Assessment: Caregiver is ready, willing and able to meet the patient's needs as recommended by the inter-professional team: Yes Name of Caregiver: [facility] Transport at Discharge: Transportation Arrangements: Ambulance Transportation Agency and Phone #:: [facility] ( [facility] ) [phone] / [phone] Needs Prior to Discharge: Needs Prior to Discharge: To Be Determined, OT/PT Evaluation, Discharge Transportation Post-Acute Discharge Plan: Met with patient and daughter Sumi in room. Extubated this morning. [facility] C[facility]TER patient admitted from [facility] for septic shock. Patient is LTC and a bed hold at the facility. Plan is to return to [place] [facility] at discharge per daughter. Recommend therapy evals when appropriate. Patient will need precert if skilled is needed on return. Patient will need cot transport at discharge. CM will continue to follow. SIGNATURE: Elliot Gomez RN PATIENT NAME: Anmol Reynolds DATE: February 17, 2025 TIME: 1:43 PM [facility] 02-17-2025 Note HNO ID: [id number] Author: JESSICA CLEMENT cathy Service: Pharmacy Author Type: Pharmacist Type: Plan of Care Filed: 02/21/2025 09:54 Note Text: PHARMACY MEDICATION REVIEW Patient Name: Anmol Reynolds : 1960 The following medications were updated within the [facility] medication list: Medications ADDED to [facility] medication list aspirin, enteric coated (ASPIRIN, ENTERIC [...] hours as needed (heartburn). Medications CHANGED on [facility] medication list Medications REMOVED from [facility] medication list alogliptin benzoate (ALOGLIPTIN ORAL) Adjust [...] E-Cancel Additional comments: Verified medication information with [facility]. Removed medications listed above from med list to match [facility] med list. Added medications listed above to med list to match [facility] med list. Required follow up actions for nursing: None The below information represents the best possible medication history: Yes Medication history completed by: Fly Fishing Guide: Rosa Brice (Dice Spotter) Source of history: alf/Other [facility] and [facility] records Medication nonadherence identified: No barriers noted Reconciliation completed: Yes Completed by: TREV All BINDER CUTTER medications addressed by TREV Patient interested in Bedside Delivery Services or using OP Pharmacy at discharge? No Preferred outpatient pharmacy: [facility] Allergies: No Known Allergies Prior to [...] Inject subcutaneously thre (more content not included)... [facility] 02-17-2025 Note HNO ID: [id number] Author: JON MCDONALD MD Service: Critical Care Author Type: Physician Type: Progress Notes Filed: 02/17/2025 13:12 Note Text: [facility] STAFF PHYSICIAN NOTE OF PERSONAL INVOLVEMENT [...] with extensive medical hx who presented from [facility] for AMS. In the ED, was obtunded [...] Prevention: Line Status: (more content not included)... [facility] 02-17-2025 Note HNO ID: [id number] Author: JON MCDONALD MD Service: Critical Care [...] intubation. The patient initially presented to [facility] ED on February 16, 2025 after being found unresponsive at his [facility] facility, last known well 1700 today INTERVAL [...] pathology LV Ejection (more content not included)... [facility] 02-16-2025 Note HNO ID: [id number] Author: ROZ MIKE RN Service: ? Author Type: Registered Nurse Type: ED Notes Filed: 02/16/2025 19:48 Note Text: Restraints applied at this time, bilateral upper extremity softs. [facility] 01-31-2025 Instructions Rj Brooks RN - 01/31/2025 2:01 PM EDT WOUND CARE INSTRUCTIONS- Anmol Given Wound location: sacrum & left ischium [place] [facility] -Gather supplies -Place down a clean [...] the wound base. - Cover with 4x4 [place] SAP. - Change your dressing daily and [...] following changes to the Wound Center at [phone] or go to the Emergency Department: Fever or chills Increased drainage Green or yellow drainage Foul odor Increased pain Hardness around the wound Redness, warmth or swelling of the surrounding tissue Color change to the wound When contacting the wound center at the ([phone]): Leave a message that includes your full [...] Blood work ordered please go to any [facility] lab. - Please send patient with medication list at next appointment. - Continue aggressive nutritional support to assist wound healing - CAT Scans & MRI need to be scheduled through Central Scheduling. Call [phone].(If applicable) Milad Goodson MD/jason/fm documented in this encounter [facility] 01-31-2025 Note HNO ID: [id number] Author: MILAD GOODSON MD Service: ? Author [...] negative unless stat (more content not included)... [facility] 01-31-2025 History of Present illness [...] in motorized wheelchair [facility] Consent captured for debridement per (Provider) [...] BY PROVIDER: Anesthetic Used: N/A applied per experimental mechanic spacecraft # 1 & 2 Other procedure: Specimen [...] alginate AG Covered and secured with: 4x4 [place] SAP Other: COMPRESSION: N/A DME: Prism order date __ DME: [employer] , PH: [phone] SPECIAL NEEDS: Coordination of care N/A Emotional support N/A OR set-up N/A Car Tester N/A Incontinence needs N/A DISCHARGED in stable condition to: facility in motorized wheelchair PLAN/ORDERS: - Return to the Wound Center to see Milad Goodson MD in 6 weeks. - Blood work ordered please go to any [facility] lab. - Please send patient with medication list at next appointment. - Continue aggressive nutritional support to assist wound healing - CAT Scans & MRI need to be scheduled through Central Scheduling. Call [phone].(If applicable) EDUCATION: The patient/family was instructed how [...] Rj Brooks RN/fm documented in this encounter [facility] 01-31-2025 Note HNO ID: [id number] Author: RJ BROOKS RN Service: ? Author Type: Registered Nurse Type: Progress Notes Filed: 01/31/2025 14:59 Note Text: Nursing Documentation Pertinent Medical History: paraplegia, MRSA, osteomyelitis, UTI, DM2, neuropathy, pyelonephritis, Wound Etiology according to patient: sacrum wound has had for four years per pt Patient arrived via: self in motorized wheelchair Home Care Company/Nursing Facility: [facility] Consent captured for debridement per (Provider) and good until Special Instructions (for example, patient stands at the bedside for exam/dressing): bed Anticoagulant Therapy: aspirin Living Situation (ie... Apartment, house, [place]): [facility] Who lives with patient: facility Who [...] BY PROVIDER: Anesthetic Used: N/A applied per experimental mechanic spacecraft # 1 AND 2 Other procedure: Specimen [...] alginate AG Covered and secured with: 4x4 [place] SAP Other: COMPRESSION: N/A DME: Prism order date __ DME: [employer] , PH: [phone] SPECIAL NEEDS: Coordination of care N/A Emotional support N/A OR set-up N/A Car Tester N/A Incontinence needs N/A DISCHARGED in stable condition to: facility in motorized wheelchair PLAN/ORDERS: - Return to the Wound Center to see Milad Goodson MD in 6 weeks. - Blood work ordered please go to any [facility] lab. - Please send patient with medication list at next appointment. - Continue aggressive nutritional support to assist wound healing - CAT Scans AND MRI need to be scheduled through Central Scheduling. Call [phone].(If applicable) EDUCATION: The patient/family was instructed how [...] consult the [facility] Rj Brooks RN/fm [facility] 01-04-2025 History of Present illness [...] PATIENT PRESENTS WITH AN IMPLANTABLE OR ATTACHED HOME AND SCHOOL VISITOR: No ALLERGIES: Reviewed and unchanged CONTRAST ALLERGY: NO. EXAM: MRI - CONTRAST TYPE: GROUP II PERIPHERAL IV DATA: DIANA PAVON IV RADIOLOGY DEPARTMENT: MR; Exam(s) Completed: Spine: Sacrum/Coccyx SIGNATURE: LIZ Roth PATIENT NAME: Anmol Given DATE: January 04, 2025 TIME: 8:49 AM documented in this encounter [facility] 01-04-2025 Note HNO ID: [id number] Author: AMBROSIO BAUGH RT(R) Service: Radiology Author [...] PATIENT PRESENTS WITH AN IMPLANTABLE OR ATTACHED HOME AND SCHOOL VISITOR: No ALLERGIES: Reviewed and unchanged CONTRAST ALLERGY: NO. EXAM: MRI - CONTRAST TYPE: GROUP II PERIPHERAL IV DATA: RAD RN IV RADIOLOGY DEPARTMENT: MR; Exam(s) Completed: Spine: Sacrum/Coccyx SIGNATURE: LIZ Roth PATIENT NAME: Anmol Given DATE: January 04, 2025 TIME: 8:49 AM [facility] 01-04-2025 Note HNO ID: [id number] Author: JOVANY JOHNSTON RN Service: Radiology Author [...] DATE: January 04, 2025 TIME: 8:46 AM [facility] 11-08-2024 History of Present illness [...] [facility]. Faisal Simeon DO 11/08/2024 documented in this encounter [facility] 10-27-2024 Telephone encounter Note Returned call unable to leave message doug was out for the day [facility] 10-27-2024 Miscellaneous Notes Returned call unable to leave message doug was out for the day Name of caller: Doug Contact phone number: [phone] [facility] Provider: Dr. Gil[facility] Practice: [facility] Chief Complaint/Reason for Call: Doug [...] pain management//no showed on 08.04.24// Doug from [facility] appt//medicare medicaid Office Name: [facility] Medication Refills need, if any: n/a Medication Name: n/a documented in this encounter [facility] 10-26-2024 Telephone encounter Note Name of caller: Doug Contact phone number: [phone] Relationship to Patient: [place] [facility] Provider: Dr. Gillette Practice: [facility] Chief Complaint/Reason for Call: Doug states she missed a call from the office to schedule the patient and would like a return call. Please review. Best time of day caller can be reached: any Patient advised that office/PCP has 24-48 business hours to return their call: Yes [facility] 10-26-2024 Telephone encounter Note Called and left message to call to reschedule appointment [facility] 10-25-2024 Telephone encounter Note Name of Caller: Doug Contact Reason for Appointment: Please call to r/s cx appt for 10.26.24 due to weather conditions. Follow up for pain management//no showed on 08.04.24// Doug from [facility] appt//medicare medicaid Office Name: [facility] Medication Refills need, if any: n/a Medication Name: n/a [facility] [employer] [facility] 09-30-2024 Instructions Faisal Simeon DO - 09/30/2024 1:28 PM EST Completed UDS. Inserted 18Fr 10cc santana Call to schedule appt with Urology Dr Jorge Grimm MD (Surgeon) [address] [place] [address] scan given recurrent blood [...] burning on urination, call the office at [phone] Thursday through Thursday 8:00 AM to 4:30 PM. For emergencies, go the Emergency Room. If you do not already have a follow up appointment scheduled with your physician, call the office at [phone] to schedule one. documented in this encounter [facility] 09-30-2024 History of Present illness Narrative Images [...] then PVR was assessed by straight catheterization. 7-Cook Islander urodynamic catheter was placed in the [...] oral post procedural antibiotic was prescribed to [facility] pharmacy. Overall the procedure was well [...] Void Residual (mL): 325 mL Storage phase (11256 or 14285/13696) Rate of Fluid infusion, First sensation (Normal [...] was observed only with valsalva Voiding Phase (98777/10626) Maximum flow, Pdet at maximum flow, Volume voided: See scanned report in Media EMG Anal/urinary muscle study patch (60039 -41) EMG inconclusive (connection was lost during study). [...] INTRA-ABDOMINAL VOIDING PRESSURE INSERT CATHETER (SANTANA) SIMPLE [91602] COMPLEX CYSTOMETROGRAM CT RENAL STONE nitrofurantoin monohydrate macrocrystal (Macrobid) 100 MG capsule Patient Instructions Completed UDS. Inserted 18Fr 10cc santana Call to schedule appt with Urology Dr Jorge Grimm MD (Surgeon) [address] [facility] [address] [place] [address] scan given recurrent blood [...] burning on urination, call the office at [phone] Thursday through Thursday 8:00 AM to 4:30 PM. For emergencies, go the Emergency Room. If you do not already have a follow up appointment scheduled with your physician, call the office at [phone] to schedule one. Catheters: Continue indwelling catheterization Fluid intake: maintaining hydration Medications: contrinue flomax for stent/stones Other: See above Return to Clinic: Follow up in about 4 weeks (around 10/28/2024) for video visit (telehealth). Faisal Simeon DO 09/30/2024 documented in this encounter [facility] 08-22-2024 History of Present illness Narrative Rheumatology [...] Resource Strain: Low Risk (04/24/2023) Received from [facility] Overall Financial Resource Strain (CARDIA) Difficulty of Paying Living Expenses: Not hard at all Food Insecurity: No Food Insecurity (05/18/2024) Received from [facility] Hunger Vital Sign Worried About Running Out of Food in the Last Year: Never true Ran Out of Food in the Last Year: Never true Transportation Needs: No Transportation Needs (05/18/2024) Received from [facility] PRAPARE - Transportation Lack of Transportation (Medical): No Lack of Transportation (Non-Medical): No Intimate Partner Violence: Not At Risk (05/18/2024) Received from [facility] Humiliation, Afraid, Rape, and Kick questionnaire Fear [...] Forteo or Tymlos. He is amenable. [facility] [place] [facility] [place] to get labs ordered Will check BMP, Vit D, PTH, SPEP Plan for [place] if labs ok. Follow up 3 months or sooner PRN Giuliano Shultz DO documented in this encounter [facility] 08-12-2024 Telephone encounter Note Spoke with [facility] at Care Facility where pt resides and given the date and time of DATA MANAGEMENT CONSULTANT video visit with Dr. Shultz at 8:20 am on 08/22/24. This information will be relayed to pt. [facility] 08-12-2024 Miscellaneous Notes Spoke with [facility] at [facility] Facility where pt resides and given the date and time of DATA MANAGEMENT CONSULTANT video visit with Dr. Shultz at 8:20 am on 08/22/24. This information will be relayed to pt. documented in this encounter [facility] 08-01-2024 Note Addended by: FAISAL SIMEON on: 08/01/2024 02:57 PM Modules accepted: Level of Service [facility] 08-01-2024 Note Addended by: FAISAL SIMEON on: 08/01/2024 02:57 PM Modules accepted: Level of Service [facility] 08-01-2024 Miscellaneous Notes Addended by: FAISAL SIMEON on: 08/01/2024 02:57 PM Modules accepted: Level of Service documented in this encounter [facility] 08-01-2024 Instructions Howard Dhaliwal MD - 08/01/2024 9:30 AM EDT -Continue PT/OT -Please follow your appoitment with pain team and rheumatology -You are scheduled for bladder study on 09/30/24 -continue scheduled bowel care daily documented in this encounter [facility] 07-31-2024 History of Present illness Narrative Images [...] following spinal surgery ~2 yrs ago in [place] . In 2019, pt had his first back surgery performed by [facility] which was an interbody fusion. 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 At that point, the hospital took the hardware out and did not replace it with the goal of treating the infection. 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 After the infection was treated, [facility] extended his fusion, decompressed the back, and replaced all hardware. At that time he lost all motor and sensation to his lower extremities. He was independent uptill december 2021 till his last spine surgery two year ago.Since 2021 [facility] and [facility] so far. Currently [facility]. Last seen on 06/13/24 in clinic and recommendations was: -Continue PT/OT -Bowel care: schedule bowel care once/day (either after breakfast or dinner) - using suppository and manual stimulation over commode chair will be more helpful than over bed . - Continue skin care - Follow [facility] service consult( we requested today ) [...] healing- being followed with wound care at [facility] 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 DME: Power wheelchair, manual wheelchair [...] Faisal Simeon DO documented in this encounter [facility] 07-27-[address] Grady murphy to Rheumatology. Spoke with patient's brother today who referred me to call [facility], where patient resides, to see about arranging transportation for patient to a Rheumatology appt (not scheduled yet). I spoke with a healthcare worker at [facility] and let her know we can also schedule a video visit with Dr. Hare. She will call me back after discussing with patient. [facility] Telephone encounter Note Referral from Dr. Mejia to Rheumatology. Spoke with patient's brother today who referred me to call [facility], where patient resides, to see about arranging transportation for patient to a Rheumatology appt (not scheduled yet). I spoke with a healthcare worker at [facility] and let her know we can also schedule a video visit with Dr. Hare. She will call me back after discussing with patient. [facility] 07-27-2024 Miscellaneous Notes Referral from Dr. Mejia to Rheumatology. Spoke with patient's brother today who referred me to call [facility], where patient resides, to see about arranging transportation for patient to a Rheumatology appt (not scheduled yet). I spoke with a healthcare worker at [facility] and let her know we can also schedule a video visit with Dr. Hare. She will call me back after discussing with patient. documented in this encounter [facility] 07-13-[address] Mejia referral to Rheumatology for Osteoporosis. Spoke with brother who transports pt to and from appts since pt resides in extended care facility. Brother is available on Fridays to transport pt to appts. Will call him back with options. [facility] 07-13-2024 Telephone encounter Note This is a Dr Mejia referral to Rheumatology for Osteoporosis. Spoke with brother who transports pt to and from appts since pt resides in extended care facility. Brother is available on Fridays to transport pt to appts. Will call him back with options. [facility] 07-13-2024 Miscellaneous Notes This is a Dr Mejia referral to Rheumatology for Osteoporosis. Spoke with brother who transports pt to and from appts since pt resides in extended care facility. Brother is available on Fridays to transport pt to appts. Will call him back with options. documented in this encounter [facility] 06-16-2024 Note Addended by: FAISAL SIMEON on: 06/16/2024 09:13 PM Modules accepted: Level of Service [facility] 06-16-2024 Miscellaneous Notes Addended by: FAISAL SIMEON on: 06/16/2024 09:13 PM Modules accepted: Level of Service documented in this encounter [facility] 06-16-2024 Telephone encounter Note Scheduled appointment [facility] 06-16-2024 Miscellaneous Notes Scheduled appointment Doug is calling in again wanting to rescheduled they can be reached at the office anytime before 3pm. Please advise and thank you LM for Doug to call the office to discuss the pt Name of caller: Doug Contact phone number: [phone] Relationship to Patient: [facility] Provider: chepe Practice: pain management Chief Complaint/Reason for Call: doug is calling in wanting to speak to the main office. Please advise and thank you Best time of day caller can be reached: any Patient advised that office/PCP has 24-48 business hours to return their call: Yes documented in this encounter [facility] 06-16-2024 Telephone encounter Note Doug is calling in again wanting to rescheduled they can be reached at the office anytime before 3pm. Please advise and thank you [facility] 06-15-2024 Telephone encounter Note LM for Doug to call the office to discuss the pt [facility] 06-15-2024 Telephone encounter Note Name of caller: Doug Contact phone number: [phone] Relationship to Patient: [facility] Provider: [facility] Practice: pain management Chief Complaint/Reason for Call: doug is calling in wanting to speak to the main office. Please advise and thank you Best time of day caller can be reached: any Patient advised that office/PCP has 24-48 business hours to return their call: Yes [facility] 06-14-2024 Telephone encounter Note RTC to pt, left voice mail. Vladimir Asher [facility] Rim Roller Setter [phone] [facility] 06-14-2024 Miscellaneous Notes RTC to pt, left voice mail. Vladimir Asher [facility] Rim Roller Setter [phone] documented in this encounter [facility] 06-13-2024 Instructions Howard Dhaliwal MD - 06/13/2024 12:29 PM EDT -Continue PT/OT -Bowel care: schedule bowel care once/day (either after breakfast or dinner) - using suppository and manual stimulation over commode chair will be more helpful than over bed . - Continue skin care - Follow [facility] service consult( we requested today ) for benefits eligibility - Bladder: We ordered today Urodynamic study for your bladder evaluation (to see your bladder status post spinal cord injury) documented in this encounter [facility] 06-13-2024 Instructions Howard Dhaliwal MD - 06/13/2024 12:29 PM EDT -Continue PT/OT -Bowel care: schedule bowel care once/day (either after breakfast or dinner) - using suppository and manual stimulation over commode chair will be more helpful than over bed . - Continue skin care - Follow [facility] service consult( we requested today ) for benefits eligibility - Bladder: We ordered today Urodynamic study for your bladder evaluation (to see your bladder status post spinal cord injury) documented in this encounter [facility] 06-13-2024 History of Present illness Narrative Patient was identified by name and date of . Evelio Grey documented in this encounter [facility] 06-13-2024 History of Present illness Narrative Patient [...] following spinal surgery ~2 yrs ago in [place] . In 2019, pt had his first back surgery performed by [facility] which was an interbody fusion. 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 At that point, the hospital took the hardware out and did not replace it with the goal of treating the infection. 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 After the infection was treated, [facility] extended his fusion, decompressed the back, and replaced all hardware. At that time he lost all motor and sensation to his lower extremities. He was independent uptill december 2021 till his last spine surgery two year ago Patient was accompanied by brother . The patient gave permission to discuss their medical information, including PHI, in their presence. Since 2021 [facility] and [facility] so far. Currently SNF in [facility]. 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 DME: Power wheelchair, manual wheelchair [...] Orders & Meds Signed During This Encounter [facility] SERVICE REQUEST PM&R [employer] Patient Instructions -Continue PT/OT -Bowel care: schedule bowel care once/day (either after breakfast or dinner) - using suppository and manual stimulation over commode chair will be more helpful than over bed . - Continue skin care - Follow [facility] service consult( we requested today ) [...] Faisal Simeon DO documented in this encounter [facility] 05-22-2024 Note Formatting of this n ote might be different from the original. Called Carlos Flower's dispatch, new ETA is around 1900. [facility] 05-22-2024 Note Formatting of this n ote might be different from the original. Called Carlos Flower's dispatch, new ETA is around 1900. [facility] 05-22-2024 Miscellaneous Notes Called aCrlos Flower's dispatch, new ETA is around 1900. CARE COORDINATION DAILY NOTE/UPDATE Discharge Plan: [facility]val[facility] This TCC was tasked to follow this patient through the weekend assisting with discharge planning. Chart was reviewed. Met with patient at bedside to confirm if he would like to return to [facility]. Patient agreeable to return. Messaged attending and infectious disease to see if patient is able to discharge today. Discharge order placed. Scheduled discharge transportation in [employer], hot die picker time confirmed for 05/22 at 1600. Bedside nurse notified of transport and will update patient and family of plan Facility notified of transportation time and discharge documents including After Visit Summary, MAR, LABS, and Vitals were uploaded into [facility] for review. Problem: Knowledge Deficit Goal: Patient/family/caregiver [...] determined. Current discharge plan is return to [facility]. Will return skilled only if needed, otherwise he can return under his medicaid benefit per [facility] message. TCC to continue to follow. Return Referral placed to [facility] via [facility] per TCC request. Await review and response regarding ability to accept. TCC notified. Care Managment Initial Assessment Date: 05/19/2024 Patient Name: Anmol Reynolds : 1960 Patient Information Source of Information: Patient Cognition/Language: WFL - Within Functional Limits Permission given to speak with patient appeals representative/caregiver as indicated: Yes Confirmation of Payer with patient/family: Yes Payer Name: Medicare A/B; [place] Medicaid [place]: No Confirmation of Primary Care Physician: Confirmed PCP Name: Tab Nieves MD at facility Seen in last 2 years?: Yes Primary Caregiver: Other (Comment) (facility staff) If assistance needed, confirmed caregiver ready, willing and able to care for patient at discharge: No (n/a) Confirmed with: Living Arrangements Facility: [facility] Facility Name: [facility] Plan to Return: Yes Lives with: Alone, Other (Comment) (at [facility]) Support Systems: Children, Family members, Comments [...] ECF Discharge Planning Actions: Continue to follow, Custodial Facility referral indicated [place]: [place] discussed (choice list not indicated; [...] consulted. Patient is a resident at [facility] xfew years. Patient confirmed plan for return. PERSONAL INJURY LITIGATION PARALEGAL tasked to place return referral. Anticipate discharge [...] instructions Outcome: Progressing documented in this encounter [facility] 05-22-2024 Nurse Note Transport arranged for 1600. Belongings packed and paperwork finished. Carlos Montelongo update: 45 minutes. Elly Cormier RN [facility] 05-22-2024 Nurse Note Transport arranged for 1600. Belongings packed and paperwork finished. Carlos Montelongo update: 45 minutes. Elly Cormier RN Santana catheter leaking since last night. Dr. Mahajan paged via secure chat. Catheter to be replaced. Patient informed me that they use a 18 swazi santana at the [facility]. A 16 swazi was previously in. Urology cart was ordered, and a 18 swazi santana was placed with 500 mL output. Larger balloon, filled with 25 mL. No leaking. Will continue to monitor. Elly Cormier RN documented in this encounter [facility] 05-22-2024 Nurse Note Santana catheter leaking since last night. Dr. Mahajan paged via secure chat. Catheter to be replaced. Patient informed me that they use a 18 swazi santana at the [facility]. A 16 swazi was previously in. Urology cart was ordered, and a 18 swazi santana was placed with 500 mL output. Larger balloon, filled with 25 mL. No leaking. Will continue to monitor. Elly Cormier RN [facility] 05-22-2024 Hospital course Narrative Images from the [...] Complexity: follow up within 7-14 calendar days ([id number]) [] Severe Complexity: follow up within 7 calendar days ([id number]) FOLLOW UP TESTING, PENDING RESULTS OR REFERRALS [...] 05/22/2024, 1:52 PM documented in this encounter [facility] 05-22-2024 History of Present illness Narrative Hospitalist Progress Note 05/22/2024 Subjective: Admit Date: 05/17/2024 PCP: Tab Dupont Room#: W6-752/W6-768 A Brief Hospital course: Anmol is a [...] Net -14 ml LABS: CBC: Recent Labs 08/16/24 0606 05/21/24 0336 05/22/24 0548 WBC 5.5 [...] MD Division of Hospitalist Medicine Inpatient Medical Services/[facility] Images from the original note were not included. PHYSICAL THERAPY [facility] Initial Evaluation Name/MRN: Anmol Reynolds ([id number]) Evaluation Date: 05/21/2024 Date of : 1960 Admission Date: 05/17/2024 8:25 PM Age: 63 y.o. Room[facility]Bed: [facility] A Discharge Recommendation: ECF without PT (Patient states he may be interested to going to a different ECF in [place]) Equipment Needed: No Assessment IMPRESSION: Patient is [...] mobility Other reduced mobility Paraplegia ([facility]) Sciatica Spinal stenosis of lumbar region with neurogenic claudication Type 2 diabetes mellitus without complication ([facility]) ([facility]) Urinary calculus, unspecified UTI (urinary tract [...] of coccygeal region, stage 3 ([facility]) 04/20/2024 Septic shock ([facility]) 04/14/2024 Lumbar stenosis with neurogenic claudication 10/24/2020 Spinal stenosis of lumbar region with neurogenic claudication 10/24/2020 Nicotine use disorder 10/15/2020 Unspecified osteoarthritis, unspecified site 10/15/2020 Pilonidal cyst without abscess 10/15/2020 Diabetes mellitus without complication ([facility]) ([facility]) 10/15/2020 Abnormal finding on EKG 10/15/2020 [...] normal Social/Functional History Patient admitted from SNF. ([place] [facility]) Assistive Equipment: wheelchair - electric, [...] of Care supervision is transferred to a [facility] Therapy Services Physical Therapist. Goals and/or treatment plan was established in collaboration with patient/family/other representatives. Hospitalist Progress Note 05/21/2024 Subjective: Admit Date: 05/17/2024 PCP: Tab Dupont Room#: W6-479/W6-075 A Brief Hospital course: Anmol is a [...] Contact: SUMI REYNOLDS Mobile Relation: Daughter Bradbam Christiandon MD [place] Division of Hospitalist Medicine Inpatient Medical Services/[facility] Images from the original note were not included. 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 Rosalinda Fox CNP [facility] - Infectious Diseases 10:11 AM 05/20/2024 Based [...] 4 LIVER PROFILE: Recent Labs 05/19/24 04005/20/24 06 AST 29 23 ALT 19 22 BILITOT [...] MD Division of Hospitalist Medicine Inpatient Medical Services/[facility] Nutrition Assessment Type and Reason for Visit: [...] of note, pt was recently admitted to [facility] 04/14-04/20/2024 with proteus, providencia, and morganella [...] On: Kcal/kg Weight Used for Energy Requirements: [place] Weight for Energy Calculation (kg): 89 kg Total Energy Requirements (kcals/day): 5078-1987 kcal/day (25-30 kcal/kg) Weight Used for Protein Requirements: [place] Weight in Kg Used for Protein Requirements: [...] mostly appear stated, 180-200#, noted 04/19- 212#) [place] Body Weight (lbs) (Calculated): 196 lbs [place] Body Weight (Kg) (Calculated): 89 kg BMI [...] Chelita Dominguez RD Contact: Secure chat or *[phone] Images from the original note were not included. 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 Melchor. Rosalinda Fox, [facility] - Infectious Diseases 3:08 PM [...] MD Division of Hospitalist Medicine Inpatient Medical Services/[facility] Hospitalist Progress Note 05/18/2024 Subjective: Admit Date: [...] MD Division of Hospitalist Medicine Inpatient Medical Services/[facility] documented in this encounter [facility] 05-22-2024 Note Formatting of this n ote might be different from the original. CARE COORDINATION DAILY NOTE/UPDATE Discharge Plan: [facility] This TCC was tasked to follow this patient through the weekend assisting with discharge planning. Chart was reviewed. Met with patient at bedside to confirm if he would like to return to [facility]. Patient agreeable to return. Messaged attending and infectious disease to see if patient is able to discharge today. Discharge order placed. Scheduled discharge transportation in [employer], hot die picker time confirmed for 05/22 at 1600. Bedside nurse notified of transport and will update patient and family of plan Facility notified of transportation time and discharge documents including After Visit Summary, MAR, LABS, and Vitals were uploaded into careport for review. [facility] 05-22-2024 Note Formatting of this n ote might be different from the original. CARE COORDINATION DAILY NOTE/UPDATE Discharge Plan: [facility] This TCC was tasked to follow this patient through the weekend assisting with discharge planning. Chart was reviewed. Met with patient at bedside to confirm if he would like to return to [facility]. Patient agreeable to return. Messaged attending and infectious disease to see if patient is able to discharge today. Discharge order placed. Scheduled discharge transportation in [employer], hot die picker time confirmed for 05/22 at 1600. Bedside nurse notified of transport and will update patient and family of plan Facility notified of transportation time and discharge documents including After Visit Summary, MAR, LABS, and Vitals were uploaded into [facility]out[facility] for review. [facility] 05-22-2024 Plan of care note Problem: Knowledge [...] Nutritional Intake Outcome: Adequate for Discharge T [facility] 05-22-2024 Plan of care note Problem: Safety Goal: Patient will be injury free during hospitalization Outcome: Progressing Problem: Safety Goal: I will remain free of falls Outcome: Progressing [facility] 05-21-2024 Plan of care note Problem: [...] Interventions Goal: Assess Nutritional Intake Outcome: Progressing [facility] 05-20-2024 Plan of care note Problem: Knowledge Deficit Goal: Patient/family/caregiver demonstrates understanding of disease process, treatment plan, medications, and discharge instructions Outcome: Progressing Problem: Potential for Compromised Skin Integrity Goal: Skin Integrity is Maintained or Improved Outcome: Progressing Goal: Nutritional status is improving Outcome: Progressing [facility] 05-20-2024 Note Formatting of this n ote might be different from the original. Chart reviewed. ID following for CoNS postive BC and proteus UTI. Repeat BC pending. +iv cefepime, final course not yet determined. Current discharge plan is return to [place] [facility] [place]. Will return skilled only if needed, otherwise he can return under his medicaid benefit per [facility] message. TCC to continue to follow. [facility] 05-20-2024 Note Formatting of this n ote might be different from the original. Chart reviewed. ID following for CoNS postive BC and proteus UTI. Repeat BC pending. +iv cefepime, final course not yet determined. Current discharge plan is return to [place] [facility] [place]. Will return skilled only if needed, otherwise he can return under [facility]. TCC to continue to follow. [facility] 05-20-2024 Hospital Discharge instructions Elly Cormier RN - 05/20/2024 7:34 AM EDT Images from the original note were not included. Continuity of Care Form Patient Name: Anmol Reynolds : 1960 Admit date: 05/17/2024 Discharge date: 05/22/2024 Code Status Order: Full Code Advance Directives: N Admitting Physician: Heydi Concepcion MD PCP: Tab Dupont Discharging Nurse: Elly Banks RN Discharging Hospital Unit/Room#: W7-017/W7-080 A Discharging Unit Emergency Contact: Extended Emergency [...] Total assistance Toileting Total assistance Feeding Independent Chief Green Officer Total assistance Med Delivery yes Wound Care Documentation and Therapy: Wound/Incision 04/14/24 Pressure Injury Sacrum (Active) Site Assessment Red 05/18/241843 [place]-Wound Assessment Red 05/18/24 1844 Wound Length (cm) 1.5 cm 05/18/24 1844 Wound Width (cm) 1 cm 05/18/24 1844 Wound Surface Area (cm^2) 1.5 cm^2 05/18/24 1844 Odor None 05/18/24 1844 Drainage Amount None 05/18/24 1844 Treatments Site care 05/18/24 1844 Primary Dressing Foam 05/18/242044 Dressing Status Clean, [...] Date: 05/17/2024 Discharging to Facility/ Agency Name: [facility] Address: [address] [place] [address] Pediatric Physical Therapy Assistant/Copra Processor signature: ICIAN SECTION Name: Anmol Reynolds Prognosis: fair Condition at Discharge: stable Rehab Potential (if transferring to Rehab): fair Recommended Labs or Other Treatments After Discharge: cbc,cmp The individual is being admitted to a nursing facility directly from an [facility] or a unit of a [facility] that is not operated by or licensed by [facility] under section 5119.14 or 5160-3-15.1 5 The individual requires the level of services provided by a nursing facility for the condition for which he or she was treated in the hospital and, Physician Certification: I certify the above information and transfer of Anmol Reynolds is necessary for the continuing treatment of the diagnosis listed and that he requires [facility] facility for less than 30 days. Update Admission H&P: No change in H&P PHYSICIAN SIGNATURE: documented in this encounter [facility] 05-19-2024 Note Formatting of this n ote might be different from the original. Return Referral placed to [facility] via [facility] per TCC request. Await review and response regarding ability to accept. TCC notified. [facility] 05-19-2024 Note Formatting of this n ote might be different from the original. Return Referral placed to [facility] via [facility] per TCC request. Await review and response regarding ability to accept. TCC notified. [facility] 05-19-2024 Note Formatting of this n ote might be different from the original. Care Managment Initial Assessment Date: 05/19/2024 Patient Name: Anmol Reynolds : 1960 Patient Information Source of Information: Patient Cognition/Language: WFL - Within Functional Limits Permission given to speak with patient appeals representative/caregiver as indicated: Yes Confirmation of Payer [...] No (n/a) Confirmed with: Living Arrangements Facility: [facility] Facility Name: [facility] Plan to Return: Yes Lives with: Alone, Other (Comment) (at [facility]) Support Systems: Children, Family members, Comments [...] ECF Discharge Planning Actions: Continue to follow, Custodial Facility referral indicated [place]: [place] discussed (choice list not indicated; [...] consulted. Patient is a resident at [facility]. Patient confirmed plan for return. PERSONAL INJURY LITIGATION PARALEGAL tasked to place return referral. Anticipate discharge in 2-3 days pending medical stability. Patient will need transport. TCC to continue to follow. Vipin Peter RN [facility] 05-19-2024 Note Formatting of this n ote might be different from the original. Care Managment Initial Assessment Date: 05/19/2024 Patient Name: Anmol Reynolds : 1960 Patient Information Source of Information: Patient Cognition/Language: WFL - Within Functional Limits Permission given to speak with patient appeals representative/caregiver as indicated: Yes Confirmation of Payer [...] No (n/a) Confirmed with: Living Arrangements Facility: [facility] Facility Name: [facility] Plan to Return: Yes Lives with: Alone, Other (Comment) (at [facility]) Support Systems: Children, Family members, Comments [...] ECF Discharge Planning Actions: Continue to follow, Custodial Facility referral indicated [place] choice: [place] discussed (choice list not indicated; [...] consulted. Patient is a resident at [facility] xfew years. Patient confirmed plan for return. PERSONAL INJURY LITIGATION PARALEGAL tasked to place return referral. Anticipate discharge in 2-3 days pending medical stability. Patient will need transport. TCC to continue to follow. Vipin Peter RN [facility] 05-18-2024 Plan of care note The patient is Moderately Stable - Low risk of patient condition declining or worsening The patient's goals for the shift include Pain control. The clinical goals for the shift include Patient to remain free of injury for the entirety of the shift. [facility] 05-18-2024 Plan of care note Problem: Knowledge Deficit Goal: Patient/family/caregiver demonstrates understanding of disease process, treatment plan, medications, and discharge instructions Outcome: Progressing [facility] 05-18-2024 Emergency department Note Pt refusing BG check stating I'm already eating. aware. Ella Zavala RN 05/18/24 1805 [facility] 05-18-2024 Emergency department Note Pt refusing BG check stating I'm already eating. MD savage. Ella Zavala RN 05/18/24 1805 [...] Resource Strain: Low Risk (04/24/2023) [facility] Overall Financial Resource Strain ([facility]) Difficulty of Paying Living Expenses: Not [...] Homeless in the Last Year: No SCREENINGS [place] Coma Scale Best Eye Response: Spontaneous Best Verbal Response: Oriented Best Motor Response: Follows commands [place] Coma Scale Score: 15 PHYSICAL EXAM ED [...] Culture. Procedure Abnormality Status --------- ------ Complete Urinalysis[[id number]] Abnormal Final result Please view results for these tests on the individual orders. COMPLETE URINALYSIS WITH REFLEX TO CULTURE Narrative: The following orders were created for panel order Urinalysis complete with reflex to Culture. Procedure Abnormality Status --------- ------ Complete Urinalysis[[id number]] Please view results for these tests on [...] injection 4 mg (4 mg IntraVENous Given 8/13/24 2153) ED care was supervised by Dr. Guerrero [...] Emergency Medicine Provider Terri Simeon PA-C 05/17/24 0050 Emergency Department Encounter [facility] EMERGENCY DEPT Patient: [...] DO 05/18/24 0435 documented in this encounter [facility] 05-18-2024 Emergency department Note Pt refusing BG check at this time. MD savage. Ella Zavala RN 05/18/24 1237 [facility] 05-18-2024 Emergency department Note Pt refusing continuous IV fluids. MD janette Zavala RN 05/18/24 1051 [facility] 05-18-2024 Emergency department Note Pt moved onto hospital bed, denies any needs or complaints at this time. Ella Zavala RN 05/18/24 1026 [facility] 05-18-2024 Emergency department Note Pharmacy contacted regarding missing oxycodone. Ella Zavala RN 05/18/24 1052 [facility] 05-18-2024 Consult note Associated Order (s): IP CONSULT TO INFECTIOUS DISEASES Images from the original note were not included. [facility] - Infectious Diseases 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 inpatient Consult Note Reason for Consult: Complicated [...] daptomycin with suppressive minocycline. Pt presented to [facility] ED on 05/17/2024 for evaluation of positive blood cultures. Pt was recently admitted to [facility] 04/14-04/20/2024 with proteus, providencia, and morganella [...] Resource Strain: Low Risk (04/24/2023) Received from [facility] Overall Financial Resource Strain (CARDIA) Difficulty [...] blood cx- 1/ GPC in clusters ([facility]) 05/05- tissue from [...] cultures from 05/06 Called micro lab at [place]--> blood cx + CoNS (only one set drawn). Hold off on vancomycin for now and follow-up repeat blood cx. If negative, likely CoNS is a contaminant. ID service will continue to follow; plan d/w Dr. Melchor. Rosalinda Fox, SHARIFA [facility] - Infectious Diseases 12:28 PM 05/18/2024 Total time 75 minutes on this day of encounter includes counseling, coordinating plan of care, record and documentation review before and after visit including documentation and time not explicitly included on EMR time stamp for accounting for open encounter. [facility] 05-18-2024 Consult note Associated Order (s): IP CONSULT TO INFECTIOUS DISEASES Images from the original note were not included. [facility] - Infectious Diseases 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 inpatient Consult Note Reason for Consult: Complicated [...] daptomycin with suppressive minocycline. Pt presented to [facility] ED on 05/17/2024 for evaluation of positive blood cultures. Pt was recently admitted to [facility] 04/14-04/20/2024 with proteus, providencia, and morganella [...] 10/24/2020 LEFT BILATERAL L2-3-4-5 DECOMPRESSION performed by pOal Vigil MD at [facility] – [...] Resource Strain: Low Risk (04/24/2023) Received from [facility] Overall Financial Resource Strain (CARDIA) Difficulty [...] cx- 2/2 in process 05/16- blood cx- /1 GPC in clusters ([facility]) 05/05- [...] cultures from 05/06 Called micro lab at [place]--> blood cx + CoNS (only one set drawn). Hold off on vancomycin for now and follow-up repeat blood cx. If negative, likely CoNS is a contaminant. ID service will continue to follow; plan d/w Dr. Melchor. Rosalinda Fox CNP [facility] - Infectious Diseases 12:28 PM 05/18/2024 Total time 75 minutes on this day of encounter includes counseling, coordinating plan of care, record and documentation review before and after visit including documentation and time not explicitly included on EMR time stamp for accounting for open encounter. documented in this encounter [facility] 05-18-2024 Emergency department Note Pt refused BG check/meds at this time stating I just want some sleep. Hospital bed ordered for pt. Meds deferred at this time. Ella Zavala RN 05/18/24821 [facility] 05-18-2024 Emergency department Note Pt had a bowel movement, this RN & another RN cleaned pt. Carmen Crews RN 05/18/24 0454 [facility] 05-18-2024 Emergency department Note Pt transport has been requested Carmen Crews RN 05/18/24 0433 [facility] 05-18-2024 Emergency department Note Pt is asleep, w/ unlabored breathing Carmen Crews RN 05/18/24 0155 Carmen Crews RN 05/18/24 0156 [facility] 05-17-2024 History and physical note Attending [...] Resource Strain: Low Risk (04/24/2023) [facility] Overall Financial Resource Strain (CARDIA) Difficulty [...] S2+, no m/r/g Abdomen: soft, nontender, BS+ LEAK GANG SUPERVISOR: Awake and alert Ext: pulse 2+ DATA: [...] - DO NOT do CPR, intubation] [_] [DNR-STEEL ERECTOR APPRENTICE - Comfort care only] [_] DNR form [...] Heydi Concepcion MD Division of Hospitalist Medicine [facility] [employer] Work Phone: 05-17-2024 History and physical note [...] Resource Strain: Low Risk (04/24/2023) Received from [facility] Overall Financial Resource Strain (CARDIA) Difficulty [...] S2+, no m/r/g Abdomen: soft, nontender, BS+ LEAK GANG SUPERVISOR: Awake and alert Ext: pulse 2+ DATA: [...] - DO NOT do CPR, intubation] [_] [DNR-STEEL ERECTOR APPRENTICE - Comfort care only] [_] DNR form [...] Heydi Concepcion MD Division of Hospitalist Medicine [facility] documented in this encounter [facility] 05-17-2024 Physician Emergency department Note EMERGENCY DEPARTMENT [...] Resource Strain: Low Risk (04/24/2023) Re[facility] from [facility] Overall Financial Resource Strain ([facility]) Difficulty of Paying Living Expenses: Not [...] Homeless in the Last Year: No SCREENINGS [place] Coma Scale Best Eye Response: Spontaneous Best [...] Culture. Procedure Abnormality Status --------- ------ Complete Urinalysis[[id number]] Abnormal Final result Please view results for these tests on the individual orders. COMPLETE URINALYSIS WITH REFLEX TO CULTURE Narrative: The following orders were created for panel order Urinalysis complete with reflex to Culture. Procedure Abnormality Status --------- ------ Complete Urinalysis[[id number]] Please view results for these tests on [...] 1,000 mL (1,000 mL IntraVENous New Bag 82155) piperacillin-tazobactam (Zosyn) IVPB 3,375 mg (0 mg [...] Emergency Medicine Provider Terri Simeon PA-C 05/17/24 5560 [facility] 05-17-2024 Physician Emergency department Note Emergency Department Encounter [facility] EMERGENCY DEPT Patient: Anmol Reynolds : [...] [employer] Rodney Guerrero DO 05/18/24 0435 [employer] Phone: 05-15-2024 History of Present illness Narrative HISTORY OF PRESENT ILLNESS Car Tester: not needed - patient preferred language is Botswanan. HIPAA: Verbal permission granted from patient to discuss case, including protected health information, in front of family / friends in room at the time of the evaluation. Anmol Reynolds is a very pleasant 63 year old male here as new patient for a second opinion of MRI results. In 2019, pt had his first back surgery performed by [facility] which was an interbody fusion. 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 At that point, the hospital took the hardware out and did not replace it with the goal of treating the infection. 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 After the infection was treated, [facility] extended his fusion, decompressed the back, [...] Resource Strain: Low Risk (04/24/2023) Received from [facility] Overall Financial Resource Strain (CARDIA) Difficulty of Paying Living Expenses: Not hard at all Food Insecurity: No Food Insecurity (05/05/2024) Received from [facility] Hunger Vital Sign Worried About Running Out of Food in the Last Year: Never true Ran Out of Food in the Last Year: Never true Transportation Needs: No Transportation Needs (05/05/2024) Received from [employer] PR[facility]ARE - Transportation Lack of Transportation (Medical): No Lack of Transportation (Non-Medical): No Intimate Partner Violence: Not At Risk (05/05/2024) Received from [facility] [facility] Humiliation, Afraid, Rape, and Kick questionnaire Fear [...] PM. This note is prepared by Rivka Garinca acting as Scribe for Dr. Otis Mejia All medical record entries made by the Scribe were at my direction and personally dictated by me. I have reviewed the record and confirm that the note above accurately reflects all work, treatment, procedures, and medical decision making performed by me. Dr. Otis Mejia. documented in this encounter [facility] 05-13-2024 Telephone encounter Note Call received back from nurse Birdie who states blooc cultures were missed, but she will have them done on Thursday when the lab come back to the facility. [facility] 05-13-2024 Miscellaneous Notes Call received back from nurse Birdie who states blooc cultures were missed, but she will have them done on Thursday when the lab come back to the facility. Called and spoke to nurse Birdie at [facility] to obtain blood culture results that were ordered to be done on 05/06/24. She did state she cannot tell if they were done, she will call their lab and have the results faxed to us. If they were not done, she will have them obtained. I did ask that she please let us know what the outcome it. documented in this encounter [facility] 05-13-2024 Telephone encounter Note Called and spoke to nurse Birdie at [facility] to obtain blood culture results that were ordered to be done on 05/06/24. She did state she cannot tell if they were done, she will call their lab and have the results faxed to us. If they were not done, she will have them obtained. I did ask that she please let us know what the outcome it. [facility] 05-10-2024 Telephone encounter Note Pt calling requesting provider to follow up regarding MRI. Pt was unable to provide telephone, address or SSN. No information was provided at this time. [facility] 05-10-2024 Miscellaneous Notes Pt calling requesting provider to follow up regarding MRI. Pt was unable to provide telephone, address or SSN. No information was provided at this time. documented in this encounter [facility] 05-06-2024 Nurse Note Patient requested discharge transportation be provided by his brother, who drives a wheelchair accessible van. Spoke with nurse at [facility] who was aware that patient was returning this evening and was agreeable to patient being transported by private vehicle. IV Dc'd. Bedside RN called report. Patient transferred via [place] lift to personal wheelchair and was escorted down to main entrance where his brother picked him up in van [facility] 05-06-2024 Nurse Note Patient requested discharge transportation be provided by his brother, who drives a wheelchair accessible van. Spoke with nurse at [facility] who was aware that patient was returning this evening and was agreeable to patient being transported by private vehicle. IV Dc'd. Bedside RN called report. Patient transferred via [place]rett lift to personal wheelchair and was escorted down to main entrance where his brother picked him up in van documented in this encounter [facility] 05-06-2024 Note Formatting of this n ote is different from the original. Images from the original note were not included. Referral placed to [facility] Await review and response regarding ability to accept. TCC notified. [facility] 05-06-2024 Note Formatting of this n ote is different from the original. Images from the original note were not included. Referral placed to [facility] Await review and response regarding ability to accept. TCC notified. [facility] 05-06-2024 Miscellaneous Notes Images from the original note were not included. Referral placed to [facility] Return - [facility] Await review and response regarding ability to accept. TCC notified. Addendum to earlier note: Pt to be discharged (returned) back to [facility]. Bedside RN aware, SW aware and will plan transport. Referral placed to SNF Return - [facility] via [facility] per TCC request. Await review and response regarding ability to accept. TCC notified. Care Managment Initial Assessment Date: 05/06/2024 Patient Name: Anmol Reynolds : 1960 Patient Information Source of Information: Patient Cognition/Language: WFL - Within Functional Limits Permission given to speak with patient appeals representative/caregiver as indicated: Confirmation of Payer with [...] Levels: Facility: Nursing Facility Skilled Facility Name: [facility] Plan to Return: Yes Lives with: Other (Comment) ([facility]) Support Systems: Parent, Family members, Friends/neighbors [...] Assistance Provider Meal Prep Assistance Provider Name: [facility] Laundry/Cleaning: Assistance Provider Laundry/Cleaning Assistance Provider Name: [facility] Finances/Bill Paying: Independent Communication: Independent Types of Care Services/Equipment Utilized Care Services: Dialysis Type: Durable Medical Equipment: Wheelchair (standard or power), Hospital Bed, Other (Comment) DME Provider: Santana catheter (chronic) Patient's Goal/Discharge Plan Patient expects to be discharged to: Return to [facility] Discharge Planning Actions: Custodial Facility referral indicated [place] of choice: [place] discussed Patient's Choice Rights and [...] for kidney stones bilaterally. Pt is from [facility] and is agreeable to return. Pt states his mother is across the [place] from him. He has a chronic santana and R picc in place. On iv ceftriaxone. Regular diet. Pt had PT eval ordered. Met with pt at bedside; explained role of tcc. Pt wanting to return to [facility] Has chronic santana catheter. He has an electric w/c. Anticipate discharge (return) to [facility] today if medically stable. Anel Lima [...] Ebl: Drains 6fr X 24cmJJ Santana 16 Cook Islander Santana catheter Specimen: Bladder calculus for [...] MAR for meds. documented in this encounter [facility] 05-06-2024 Hospital Discharge instructions Bianca Rodgers RN - 05/06/2024 2:49 PM EDT Images from the original note were not included. Continuity of Care Form Patient Name: Anmol Franco Given : 1960 Admit date: 05/05/2024 Discharge date: 05/06/2024 Code Status Order: Full Code Advance Directives: N Admitting Physician: Dashawn Grimm MD PCP: AMBROSIO MONROY DO Discharging Nurse: Bianca Rodgers RN Discharging Hospital Unit/Room#: [id number]/[id number] A Discharging Unit Phone Number: [phone] Emergency Contact: Extended Emergency Contact Information Primary [...] assistance Toileting Total assistance Feeding Minimal assistance Chief Green Officer Minimal assistance Med Delivery yes Wound Care [...] are sent with patient): wheelchair RN SIGNATURE: {E-signature:04235} CASE MANAGEMENT/SOCIAL WORK SECTION Inpatient Status Date: Discharging to Facility/ Agency Name: Address: Phone: Fax: Dialysis Facility (if applicable) Name: Address: Dialysis Schedule: Phone: Fax: Pediatric Physical Therapy Assistant/Copra Processor signature: {E-signature:48007} PHYSICIAN SECTION Name: Anmol Reynolds Prognosis: {Rehab Prognosis:12602} Condition at Discharge: {Patient Condition:64991} Rehab Potential (if transferring to Rehab): {Rehab Prognosis:56941} Recommended Labs or Other Treatments After Discharge: The individual is being admitted to a nursing facility directly from an [facility] or a unit of a [facility] that is not operated by or licensed by [facility] under section 5119.14 or 5160-3-15.1 5 The individual requires the level of services provided by a nursing facility for the condition for which he or she was treated in the hospital and, Physician Certification: I certify the above information and transfer of Anmol Reynolds is necessary for the continuing treatment of the diagnosis listed and that he requires {ADELINE Level of Care:26226} for {greater less than:63412} 30 days. Update Admission H&P: {ADELINE Changes in H&P:70383} PHYSICIAN SIGNATURE: {E-signature:30513} The following attachments cannot be sent through Care Everywhere.Laser Lithotripsy for Kidney Stones Discharge Instructions ([place]ots[place]an)How to Care for Your Santana Catheter ([place]an)documented in this encounter [facility] 05-06-2024 Note Formatting of this n ote might be different from the original. Addendum to earlier note: Pt to be discharged (returned) back to [facility]. Bedside RN aware, VIVIAN aware and will plan transport. [facility] 05-06-2024 Note Formatting of this n ote might be different from the original. Addendum to earlier note: Pt to be discharged (returned) back to [facility]. Bedside RN aware, SW aware and will plan transport. [facility] 05-06-2024 Hospital course Narrative Images from the original note were not included. 48 Hour Discharge Summary Note Patient ID: Anmol Reynolds [id number] 63 y.o. 1960 Admit date: 05/05/2024 Discharge [...] MD. PGY-2 Urology documented in this encounter [facility] 05-06-2024 Note Formatting of this n ote might be different from the original. Referral placed to [facility] Return - [facility] via [facility] per TCC request. Await review and response regarding ability to accept. TCC notified. [facility] 05-06-2024 Note Formatting of this n ote might be different from the original. Referral placed to [facility] Return - [facility] via [facility] per TCC request. Await review and response regarding ability to accept. TCC notified. Electronically signed by [facility] Juana Edmonds [facility] 05-06-2024 Note Formatting of this n ote might be different from the original. Care Managment Initial Assessment Date: 05/06/2024 Patient Name: Anmol Reynolds : 1960 Patient Information Source of Information: Patient Cognition/Language: WFL - Within Functional Limits Permission given to speak with patient appeals representative/caregiver as indicated: Confirmation of Payer with patient/family: Yes Payer Name: Medicare A/B [place]: No Confirmation of Primary Care Physician: Confirmed PCP Name: Ambrosio Monroy, Seen in last 2 years?: Yes Primary Caregiver: Self If assistance needed, confirmed caregiver ready, willing and able to care for patient at discharge: Confirmed with: Living Arrangements Current Residence: Number of Floors Number of Entry Steps: Bed/Bath Levels: Facility: Nursing Facility Skilled Facility Name: [facility] Plan to Return: Yes Lives with: Other (Comment) ([facility]) Support Systems: Parent, Family members, Friends/neighbors [...] expects to be discharged to: Return to [facility] Discharge Planning Actions: Custodial Facility referral indicated [place] of choice: [place] discussed Patient's Choice Rights and [...] for kidney stones bilaterally. Pt is from [facility] and is agreeable to return. Pt states his mother is [place]. He has a chronic santana and R picc in place. On iv ceftriaxone. Regular diet. Pt had PT eval ordered. Met with pt at bedside; explained role of tcc. Pt wanting to return to [facility] Has chronic santana catheter. He has an electric w/c. Anticipate discharge (return) to [facility] today if medically stable. Anel Lima RN [facility] 05-06-2024 Note Formatting of this n ote might be different from the original. Care Managment Initial Assessment Date: 05/06/2024 Patient Name: Anmol Reynolds : 1960 Patient Information Source of Information: Patient Cognition/Language: WFL - Within Functional Limits Permission given to speak with patient appeals representative/caregiver as indicated: Confirmation of Payer with [...] Levels: Facility: Nursing Facility Skilled Facility Name: [facility] Plan to Return: Yes Lives with: Other (Comment) ([facility]) Support Systems: Parent, Family members, Friends/neighbors [...] Assistance Provider Meal Prep Assistance Provider Name: [facility] Laundry/Cleaning: Assistance Provider Laundry/Cleaning Assistance Provider Name: [facility] Finances/Bill Paying: Independent Communication: Independent Types of Care Services/Equipment Utilized Care Services: Dialysis Type: Durable Medical Equipment: Wheelchair (standard or power), Hospital Bed, Other (Comment) DME Provider: Santana catheter (chronic) Patient's Goal/Discharge Plan Patient expects to be discharged to: Return to [facility] Discharge Planning Actions: Custodial Facility referral indicated [place] of choice: [place] discussed Patient's Choice Rights and [...] for kidney stones bilaterally. Pt is from [facility] and is agreeable to return. Pt states his mother is [place]. He has a chronic santana and R picc in place. On iv ceftriaxone. Regular diet. Pt had PT eval ordered. Met with pt at bedside; explained role of tcc. Pt wanting to return to [place] Has chronic santana catheter. He has an electric w/c. Anticipate discharge (return) to [facility] today if medically stable. Anel Lima RN T [facility] 05-06-2024 History of Present illness Narrative UROLOGY PROGRESS NOTE PATIENT NAME: Anmol Reynolds DATE OF : 1960 ADMISSION DATE: 05/05/2024 TODAY'S DATE: 05/06/2024 Subjective Pt evalauted at bedside in [facility]. JESSY. POD1 of laser lithotripsy and b/l [...] MD PGY-2 Urology documented in this encounter [facility] 05-05-2024 Plan of care note The [...] address these barriers include none. [facility] 05-05-2024 Note Formatting of this n ote might be different from the original. Belongings returned to patient bedside. Meal tray ordered [facility] 05-05-2024 Note Formatting of this n ote might be different from the original. Belongings returned to patient bedside. Meal tray ordered [facility] 05-05-2024 Note Formatting of this n [...] Ebl: Drains 6fr X 24cmJJ Santana 16 [place] Santana catheter Specimen: Bladder calculus for [...] removal. Dashawn Grimm MD 05/06/24 5:[address] [facility] 05-05-2024 Note Formatting of this n [...] Ebl: Drains 6fr X 24cmJJ Santana 16 [place] Santana catheter Specimen: Bladder calculus for [...] removal. Dashawn Grimm MD 05/06/24 5:11 PM [facility] 05-05-2024 Attending History and physical note [...] 1:20 PM Source Note - Radha Lucas, PATTERN MARKING SUPERVISOR - 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 - 04/27/2024 2:00 PM EDT Images from the original note were not included. Comprehensive Pre Surgical History and Physical ? Name: Anmol Reynolds : 1960 (Age-63 y.o.) Date of Service: Pt seen/examined on 04/27/2024 Procedure Information Date/Time: 05/05/24 1230 Procedures: CYSTOSCOPY (Urethra) - 120 MINS POSSIBLE CYSTOLITHOLAPAXY (Urethra) BILATERAL URETEROSCOPY ASTRID LASER LITHOTRIPSY (Bilateral: Urethra) BILATERAL URETERAL STENT CHANGE (Bilateral: Urethra) Location: [address] Operating Room Surgeons: Dashawn Grimm MD [...] days. Denies prior problems with anesthesia. No [facility] problems with anesthesia Denies c/o chest pain, dizziness, sob, syncope, palpitations, tachycardia, cough, wheezing, nvd, fever or chills Wheelchair bound (paraplegia)- No chest pain or sob with normal activity(upper body activity) Do you have a history of chronic opioid use? oxycodone per pain management ? Denies history of PA, CAD, CHF, CVA, seizures, asthma/copd, WEST, PE/DVT [...] QT Interval 426 QTC Interval 477 P Liberty 10 QRS Liberty 28 T Wave Liberty 28 ND Interval 159 Impression Sinus rhythm Electronically Signed On 04-20-2024 15:22:00 EDT by Jax Wiggins ECHO and EF:None on file METS __Wheelchair bound (paraplegia)- No chest pain or sob with normal activity (upper body activities) Electronically signed by: Radha Lucas APRN - 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 Date: 04/27/2024 at 3:18 PM [employer] Phone: 05-05-2024 History and physical note Images [...] Source Note - Radha Lucas APRN - 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 - 04/27/2024 2:00 PM EDT Images from the original note were not included. Comprehensive Pre Surgical History and Physical ? Name: Anmol Reynolds : 1960 (Age-63 y.o.) Date of Service: Pt seen/examined on 04/27/2024 Procedure Information Date/Time: 05/05/24 1230 Procedures: CYSTOSCOPY (Urethra) - 120 MINS POSSIBLE CYSTOLITHOLAPAXY (Urethra) BILATERAL URETEROSCOPY ASTRID LASER LITHOTRIPSY (Bilateral: Urethra) BILATERAL URETERAL STENT CHANGE (Bilateral: Urethra) Location: [facility] OR [address] [place] [address] Operating Room Surgeons: Dashawn Grimm MD Chief [...] days. Denies prior problems with anesthesia. No [facility] problems with anesthesia Denies c/o chest pain, dizziness, sob, syncope, palpitations, tachycardia, cough, wheezing, nvd, fever or chills Wheelchair bound (paraplegia)- No chest pain or sob with normal activity(upper body activity) Do you have a history of chronic opioid use? oxycodone per pain management ? Denies history of PA, CAD, CHF, CVA, seizures, asthma/copd, WEST, PE/DVT [...] QT Interval 426 QTC Interval 477 P Liberty 10 QRS Liberty 28 T Wave Liberty 28 ND Interval 159 Impression Sinus rhythm Electronically Signed On 04-20-2024 15:22:00 EDT by Jax Wiggins ECHO and EF:None on file METS __Wheelchair bound (paraplegia)- No chest pain or sob with normal activity (upper body activities) Electronically signed by: Radha Lucas APRN - 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 Date: 04/27/2024 at 3:18 PM documented in this encounter [facility] 05-05-2024 Note Formatting of this n ote might be different from the original. Spoke with the nurse Aguilar from the facility pt came from. The nurse confirmed that pt did not have anything to eat after midnight and only sips of water with morning meds. See MAR for meds. [facility] 05-05-2024 Note Formatting of this n ote might be different from the original. Spoke with the nurse Aguilar from the facility pt came from. The nurse confirmed that pt did not have anything to eat after midnight and only sips of water with morning meds. See MAR for meds. [facility] 05-04-2024 Telephone encounter Note R/S patient for 06/14 at 8:30a, also contacted [place] to confirm transportation [facility] 05-04-2024 Miscellaneous Notes R/S patient for 06/14 at 8:30a, also contacted [place] to confirm transportation Name of Caller: Doug Contact Reason for Appointment: Reschedule 04/21/24 appointment Office Name: Interventional Pain Management documented in this encounter [facility] 05-04-2024 Telephone encounter Note Name of Caller: Doug Contact Reason for Appointment: Reschedule 04/21/24 appointment Office Name: Interventional Pain Management [facility] 04-27-2024 Telephone encounter Note Call placed to pt. No answer no VM set up. No return calls from [facility]. Pt is scheduled for PAT today. [facility] 04-27-2024 Miscellaneous Notes Call placed to [...] of all current medications Surgery: 05/05 @12:30 [facility] Surgery arrival time: 10:30am Surgery instructions: [...] DIAGNOSIS: Bladder calculus, bilateral ureteral stones FACILITY: [facility] or [facility] DETAILS: OUTPT ANESTHESIA: GENERAL TIME REQUESTED: 2hr DATE REQUESTED: Must be minimum of 2 weeks from today due to infection SURGERY ORDERS: Already placed by Joe Hammer NP on 04/15/2024 POST OP FOLLOW UP: cysto stent removal 2 wks documented in this encounter [facility] 04-26-2024 Telephone encounter Note Called pt and discussed his MRI L spine results. He has [facility] rehab follow up scheduled. Recommended Spine Surgery opinion. No change in clinical condition from last visit. Vaishali Pierre DO [facility] 04-26-2024 Miscellaneous Notes Called pt and discussed [...] message. I called nursing staff at the [place] where he lives and was able to leave a message with nursing regarding his MRI findings and that I would like to speak with him and recommendations to schedule visit with [facility] rehab and spine surgery. aVishali Pierre DO Telephoned [place] pt at dinner and heel brusher states she cannot pull pt away from dinner. Called pt regarding his MRI, which showed: IMPRESSION: Acute-subacute sacral insufficiency fracture at S2. Postoperative and degenerative changes of the lumbar spine with linear granulation tissue at L2-3 and tethering of the cauda equina suggesting sequelae of chronic arachnoiditis. No evidence of osteomyelitis discitis or epidural abscess. [facility] the [facility], but I was able [...] Vaishali Pierre DO documented in this encounter [facility] 04-26-2024 Telephone encounter Note Called pt again. Staff at the [facility] stated he was unable to come to the phone and asked for call back later in the day. Vaishali Pierre DO [facility] 04-25-2024 Telephone encounter Note Called pt and reached staff, but he was unable to come to the phone. Will try again tomorrow. Vaishali Pierre DO [facility] 04-25-2024 Telephone encounter Note Call placed to pt to advise of SX information. No answer, unable to LVM. If pt calls back into office please advise of below information or transfer to me. Doctor: JORGE OLIVA (arrive 15 min early): 04/27 @2pm [facility] PAT instructions: Please bring photo ID, [...] counter vitamins 3 days prior to surgery [facility] 04-25-2024 Miscellaneous Notes Call placed to [...] DIAGNOSIS: Bladder calculus, bilateral ureteral stones FACILITY: [facility] or [facility] DETAILS: OUTPT ANESTHESIA: GENERAL TIME REQUESTED: 2hr DATE REQUESTED: Must be minimum of 2 weeks from today due to infection SURGERY ORDERS: Already placed by Joe Hammer NP on 04/15/2024 POST OP FOLLOW UP: cysto stent removal 2 wks documented in this encounter [facility] 04-21-2024 Telephone encounter Note Call placed to pt but no answer at this time. Pt does not have VM set up so unable to LVM. No MyChart set up. Will continue to reach out to pt. [facility] 04-20-2024 Miscellaneous Notes Dc to [facility] this evening at 6:30. [facility] messaged the facility with dc time and left a voicemail message for patients brother with dc time and arrangements. Re faxed opat to [phone]. Discharge med list transmitted to return back to [facility] via [facility] per TCC request. Images from the original note were not included. Care Management Progress Note Chart reviewed. Patient remains on . Discussed patient in rounds. Noted discharge order. Noted patient received PICC placement today. Faxed opat for Ertapenem IV to [phone]. PERSONAL INJURY LITIGATION PARALEGAL tasked to send final updates to [facility]. SW tasked to arrange transportation today when ready. Patient will need covid test resulted before leaving hospital. TCC section of ADELINE completed. DC plan: return to [facility], no auth needed. Bed hold. Discharge Milestones and Delays Expected date/time: 04/20/2024 Medically ready since: 04/20/2024 Disposition: Custodial Facility Transport status: No current request Discharge Milestones Place discharge order Complete med reconciliation Case mgmt discharge readiness Clinical Stability Diagnostic Workup Imaging Results Patient Education Complete Expected Discharge History Expected Date/Time Set By Reviewed At 04/20/2024 Otis Mckenzie DO 04/20/2024 11:42 AM 04/18- From [facility]. 04/20- Getting a picc today for IV antibiotics, [facility]. 04/20/2024 LINDSAY Gallardo 04/20/2024 9:34 AM 04/20/2024 LINDSAY Gallardo 04/19/2024 9:13 AM 04/18- From [facility]. 04/20/2024 Chrissie Rodrigues RN 04/19/2024 7:55 [...] Sent updated notes to return back to [facility] per [facility] request. Await review and response regarding ability [...] chronic santana in place. Pt is from [facility]. Tasked PERSONAL INJURY LITIGATION PARALEGAL to send updated clinicals to facility. Pt is a bedhold, no auth required to return. Will however need a covid test before returning to facility. Discharge plan is [facility] when medically ready. chef manager to follow and assist as needed. [...] of Information: Patient Name/Contact Information: Ronald Reynolds [phone] brother and daughter Sumi Reynolds Cognition/Language: WFL - Within Functional Limits Permission given to speak with patient appeals representative/caregiver as indicated: Yes Confirmation of Payer with patient/family: Yes Payer Name: medicare and medicaid [place]: No Confirmation of Primary Care Physician: Confirmed PCP Name: house doctor at [facility]-Dr. Dupont Seen in last 2 years?: Yes Primary Caregiver: Other (Comment) If assistance needed, confirmed caregiver ready, willing and able to care for patient at discharge: Yes Confirmed with: staff at f Living Arrangements Current Residence: (ecf) Number of Floors 1 Number of Entry Steps: (level) Bed/Bath Levels: Both first floor Facility[facility] Facility Name: [facility] Plan to Return: Yes Lives with: (ecf) Support Systems: Family members, Comments (Other) (facility) Activities of Daily Living Ambulation: Total Care (everett lift to wc) Bathing/Dressing: Total Care Elimination/Continence/Toileting: Total Care Feeding: Assistance Who Assists with Activities of Daily Living: [facility] staff Instrumental Activities of Daily Living Prescription Coverage: Yes Pharmacy Used: [facility] Medication Management: Medication dispenser Who assists with medication securing and setup?: [facility] Transportation/Shopping: Assistance Provider Transportation/Shopping Assistance Provider Name: facility Transportation Mode: Payer provided transport service Needs Assistance with Transportation at Discharge: Yes Meal Preparation: Assistance Provider Meal Prep Assistance Provider Name: [facility] Laundry/Cleaning: Assistance Provider Laundry/Cleaning Assistance Provider Name: [facility] Finances/Bill Paying: Assistance Provider Finances/Bill Payer Assistance Provider Name: [facility] Communication: Independent, Emergency Call System Types of Care Services/Equipment Utilized Care Services: Dialysis Type: NA Durable Medical Equipment: Wheelchair (standard or power) Patient's Goal/Discharge Plan Patient expects to be discharged to: return to [facility] Discharge Planning Actions: Continue to follow Patient's Choice Rights and [employer] and Collaborative Relationships Disclosed as Indicated for Post-Acute Care: Yes Interdisciplinary Team Engagement: Social Work Referral for: Additional Information: Inpatient status from [facility] with sepsis. Urology consulted due to [...] of paraplegia and states has been at [facility] for a year and wishes to return upon discharge. Tasked PERSONAL INJURY LITIGATION PARALEGAL to place referral in careport. He is everett lift to at facility. Will need to monitor for antibiotic needs upon discharge. Did call facility to obtain daughter's phone number for patient and updated primary care nurse with this information. .. Isabel Kirby RN Referral placed to return back to [facility] via [facility] per TCC request. [...] right 7 x 26 double-J stent Santana-22 [place] Islander coud catheter Specimen: Complications None; patient tolerated the procedure well. Findings: He is a 63-year-old paraplegic [facility] resident with a chronic Santana catheter. He [...] 6 x 26 stent was passed. 22 [place] Islander coud catheter was placed to straight [...] bladder. The bladder was left full. 22 [place] Islander coud catheter was placed into the bladder. He was awakened and transferred to the recovery room. ICU was consulted for admission due to the hypotension and need for pressors during the case as well as the lactic acidosis. Dashawn Grimm MD 04/14/24 10:49 PM documented in this encounter [facility] 04-20-2024 Hospital course Narrative Images from [...] CONSULT TO INFECTIOUS DISEASES IP CONSULT TO CERTIFIED PROFESSIONAL MIDWIFE Discharge Instructions: Diet: Adult diet Regular; 5 carb choices (75 gm/meal) Activity: as tolerated Recommended Outpatient Tests: Disposition: Patient discharged in stable condition to SNF LABS: CBC: Recent Labs 04/18/2412 04/19/248 04/20/24 0359 WBC 8.4 9.2 6.4 RBC 3.95* 3.79* 3.70* HGB 12.1* 11.6* 11.3* HCT 36.6* 35.0* 34.8* MCV 92.7 92.3 94.1 RDW 15.0 14.8 14.8 PLT 79* 88* 121* BMP: Recent Labs 04/18/24 0712 04/19/248 04/20/24 0359 NA 140 138 138 K [...] Complexity: follow up within 7-14 calendar days (63800) [x] Severe Complexity: follow up within 7 calendar days (88336) Follow up Testing, Pending results or Referrals [...] frame. Signed: Otis Mckenzie DO [facility] 04/20/2024, 11:42 AM Total time Spent on Discharge: 32 minutes documented in this encounter [facility] 04-20-2024 Hospital Discharge instructions Faby Maxwell [...] of coccygeal region, stage 3 ([facility]) Nicotine use disorder Unspecified osteoarthritis, unspecified site Pilonidal cyst without abscess Diabetes mellitus without complication ([facility]/HCC) (HCC) Lumbar radiculopathy Abnormal finding on [...] assistance Toileting Total assistance Feeding Minimal assistance Chief Green Officer Minimal assistance Med Delivery yes Wound Care Documentation and Therapy: Wound/Incision 04/14/24 Pressure Injury Sacrum (Active) Site Assessment Unable to assess 04/19/242039 [place]-Wound Assessment Clean;Dry;Intact 04/19/242039 Drainage Description Red 04/19/24 165 Odor None 04/18/24 0328 Drainage Amount Scant 04/19/241650 Treatments Cleansed;Zinc - oxide paste 04/19/241650 Primary Dressing Foam 04/19/24 165 Dressing Status [...] Date: 04-14-2024 Discharging to Facility/ Agency Name: [facility] Address: [address] [place] [id number] Dialysis Facility (if applicable) Name: Address: Dialysis Schedule: Phone: Fax: Pediatric Physical Therapy Assistant/Copra Processor signature: {E-signature:41365} ICIAN SECTION Name: Anmol Reynolds Prognosis: {Rehab Prognosis:80494} Condition at Discharge: {Patient Condition:46435} Rehab Potential (if transferring to Rehab): excellent Recommended Labs or Other Treatments After Discharge: blood cultures to be obtained on 05/06/24 The individual is being admitted to a nursing facility directly from an [facility] or a unit of a [facility] that is not operated by or licensed by [facility] under section 5119.14 or 5160-3-15.1 5 The individual requires the level of services provided by a nursing facility for the condition for which he or she was treated in the hospital and, Physician Certification: I certify the above information and transfer of Anmol Reynolds is necessary for the continuing treatment of the diagnosis listed and that he requires [facility] facility for less than 30 days. Update Admission H&P: No change in H&P PHYSICIAN SIGNATURE: documented in this encounter [place] [id number] Nurse Note Patient tolerated procedure well. Transferring back to nursing floor. Patient arrived from [facility], AMOL Enriquez was in to speak with the patient regarding PICC, consent was obtained. Patient was placed supine on exam table prepped and draped in sterile fashion. Telemetry monitors placed, vitals being monitored. documented in this encounter [facility] 04-19-2024 History of Present illness Narrative [...] Fluid Accumulation: Mild Extremities (+2 kenroy LE) Thermoforming Machine Operator Strength: Not Performed Nutrition Assessment: per MD [...] On: Kcal/kg Weight Used for Energy Requirements: [place] Weight for Energy Calculation (kg): 82 kg Total Energy Requirements (kcals/day): 5831-2529 (28-30) Weight Used for Protein Requirements: [place] Weight in Kg Used for Protein Requirements: [...] (183 lb) % Weight Change (Calculated): 12.2 [place] Body Weight (lbs) (Calculated): 196 lbs [place] Body Weight (Kg) (Calculated): 89 kg % [place] Body Weight (Calculated): 104.7 % BMI (kg/m2) (Calculated): 26.5 Weight Adjustment For: Paraplegia % Weight Adjustment: 7.5 - Paraplegia Total Adjusted Percentage (Calculated): 7.5 Adjusted [place] Body Weight (lbs) (Calculated): 181.3 lbs Adjusted [place] Body Weight (kg) (Calculated): 82.41 kg Adjusted [...] Continue current diet Zonia Dumont RD Contact: *[phone] or via Secure Chat Images from the original note were not included. [facility] - Infectious Diseases Attending Progress Note Subjective: [...] #1 - Assess for effectiveness of treatment [[id number]] Blood, Venous Preliminary result Component Value Blood Culture Blood culture incubation started P 04/16/2024 0654 04/16/2024 1101 Blood culture Site #2 - Assess for effectiveness of treatment [[id number]] Blood, Venous Preliminary result Component Value Blood Culture Blood culture incubation started P 04/15/2024 1713 04/15/2024 2208 MRSA by PCR [[id number]] (Abnormal) ESwab from Nasal Final result Component Value Staphylococcus aureus Detected Abnormal mecA gene Not Detected 04/15/2024 0103 04/16/2024 1135 Urine culture [[id number]] (Abnormal) Urine, Clean Catch Preliminary result Component Value Urine Culture Normal urogenital gosia present P 50,000-90,000 CFU/mL Providencia stuartii Abnormal P 04/14/2024 1631 04/16/2024 1204 Blood culture Site #1 - Suspected Infection [[id number]] (Abnormal) Blood, Venous Preliminary result Component Value Blood Culture Proteus mirabilis Panic P Providencia stuartii Panic P Morganella morganii Panic P 04/14/2024 1631 04/16/2024 1204 Blood culture Site #2 - Suspected Infection [[id number]] (Abnormal) Blood, Venous Preliminary result Component Value Blood Culture Morganella morganii Panic P For identification and/or sensitivity, refer to culture collected on: 04/14/24 at 16:31, [id number]. This is an edited result. Previous organism was Gram-negative bacilli on 04/15/2024 at 0835 EDT. 04/14/2024 1631 04/15/2024 0828 Blood Culture Identification - Anaerobic [[id number]] (Abnormal) Blood, Venous Final result Component Value Proteus species Detected Abnormal Lines: PIV Radiography/Echo/Other: Procedure Component Value Units Date/Time FL pyelogram retrograde [[id number]] Resulted: 04/14/242216 Order Status: Completed Updated: 04/14/242216 Narrative: There is no interpretation needed for this exam. CT abdomen pelvis wo IV contrast [[id number]] Collected: 04/14/241928 Order Status: Completed Updated: 04/14/241938 [...] 7:37 PM EDT XR chest 1 view [[id number]] Collected: 04/14/241650 Order Status: Completed Updated: 04/14/241652 Narrative: Patient Name: ANMOL REYNOLDS : 1960 Exam Date/Time: 04/14/2024 16:39 Procedure: XR CHEST 1 VIEW [facility] Reason For Exam: sepsis INDICATION: Sepsis. [...] no fungi. Discontinue fluconazole. Continue meropenem through tipple mechanic, then, tomorrow change to ertapenem (1st dose [...] for open encounter. Hospitalist Progress Note 04/19/2024 [phone]: Please page me ([phone]) for patient care issues. [phone]: Please page [facility] Hospitalist for any issues. Subjective: Admit [...] Type 2 diabetes mellitus without complication ([facility]) ([facility]) LABS: CBC: Recent Labs 04/17/24 0342 04/18/24 0712 04/19/24 0428 WBC 7.9 8.4 9.2 RBC 3.83* 3.95* 3.79* HGB 11.5* 12.1* 11.6* HCT 35.4* 36.6* 35.0* MCV 92.4 92.7 92.3 RDW 14.9 15.0 14.8 PLT 77* 79* 88* BMP: Recent Labs 04/17/242 04/18/2471104/19/248 NA 135 140 138 K 3.2* 3.1* [...] Jonah Division of Hospitalist Medicine Inpatient Medical Services/[facility] PAGER: Epic chat Hospitalist Progress Note 04/18/20246990517-6229: Please page me ([phone]) for patient care issues. [phone]: Please page [facility] Hospitalist for any issues. Subjective: Admit Date: 04/14/2024 PCP: AMBROSIO MONROY DO Room#: B2-254/B2-254 A Interval History: No overnight issues. Denies chest pain or sob. No abdominal pain, nausea, vomiting. No fevers or chills. Adult diet Regular; 5 carb choices (75 gm/meal) @[id number]@ 24HR INTAKE/OUTPUT: Intake/Output Summary (Last 24 hours) at 04/18/2024 1214 Last data filed at 04/18/2024 0500 Gross per 24 hour Intake 700 ml Output 3850 ml Net -3150 ml Past Medical History: Past Medical History: Diagnosis Date Abscess, perineum Chronic back pain Hip sprain Hyperlipidemia Hypertension Neuropathy Osteoarthritis Sciatica Type 2 diabetes mellitus without complication ([facility]/H[facility]) ([facility]) LABS: CBC: Recent Labs 04/16/24 0504/17/2434104/18/24 0712 WBC 11.9* 7.9 8.4 RBC 3.91* 3.83* 3.95* HGB 12.0* 11.5* 12.1* HCT 37.2* 35.4* 36.6* MCV 95.1 92.4 92.7 RDW 15.2* 14.9 15.0 PLT 76* 77* 79* BMP: Recent Labs 07/13/51404/17/2434104/18/24711 NA 137 135 140 K 4.3 3.2* 3.1* CL 105 107 105 CO2 25 23 27 BUN 30* 23* 15 CREATININE 0.70 0.58* 0.51* GLUCOSE 315* 144* 74 CALCIUM 8.2* 7.9* 7.8* ANIONGAP 6 5 7 LIVER PROFILE: Recent Labs 04/16/2451404/17/2434104/18/24 0712 AST 37 22 18 ALT 26 [...] MD Division of Hospitalist Medicine Inpatient Medical Services/[facility] PAGER: [employer] chat Images from the original note were not included. [facility] - Infectious Diseases Attending Progress Note Subjective: [...] Recent Labs 04/14/24 1603 04/14/24 1730 04/14/248 04/15/247 04/16/24 0515 04/17/24 0342 WBC 1.5* -- [...] #1 - Assess for effectiveness of treatment [[id number]] Blood, Venous Preliminary result Component Value Blood Culture Blood culture incubation started P 04/16/2024 0654 04/16/2024 1101 Blood culture Site #2 - Assess for effectiveness of treatment [[id number]] Blood, Venous Preliminary result Component Value Blood Culture Blood culture incubation started P 04/15/2024 1713 04/15/2024 2208 MRSA by PCR [[id number]] (Abnormal) ESwab from Nasal Final result Component Value Staphylococcus aureus Detected Abnormal mecA gene Not Detected 04/15/2024 0103 04/16/2024 1135 Urine culture [[id number]] (Abnormal) Urine, Clean Catch Preliminary result Component Value Urine Culture Normal urogenital gosia present P 50,000-90,000 CFU/mL Providencia stuartii Abnormal P 04/14/2024 1631 04/16/2024 1204 Blood culture Site #1 - Suspected Infection [[id number]] (Abnormal) Blood, Venous Preliminary result Component Value Blood Culture Proteus mirabilis Panic P Providencia stuartii Panic P Morganella morganii Panic P 04/14/2024 1631 04/16/2024 1204 Blood culture Site #2 - Suspected Infection [[id number]] (Abnormal) Blood, Venous Preliminary result Component Value Blood Culture Morganella morganii Panic P For identification and/or sensitivity, refer to culture collected on: 04/14/24 at 16:31, [id number]. This is an edited result. Previous organism was Gram-negative bacilli on 04/15/2024 at 0835 EDT. 04/14/2024 1631 04/15/2024 0828 Blood Culture Identification - Anaerobic [[id number]] (Abnormal) Blood, Venous Final result Component Value Proteus species Detected Abnormal Lines: PIV Radiography/Echo/Other: Procedure Component Value Units Date/Time FL pyelogram retrograde [[id number]] Resulted: 04/14/242216 Order Status: Completed Updated: 04/14/242216 Narrative: There is no interpretation needed for this exam. CT abdomen pelvis wo IV contrast [[id number]] Collected: 04/14/241928 Order Status: Completed Updated: 04/14/241938 Narrative: Patient Name: ANMOL REYNOLDS : 1960 Exam Date/Time: 04/14/2024 19:28 Procedure: CT ABDOMEN PELVIS WO IV CONTRAST Ordering Provider: [facility] Reason For Exam: Sepsis CT ABDOMEN AND [...] 7:37 PM EDT XR chest 1 view [[id number]] Collected: 04/14/241650 Order Status: Completed Updated: 04/14/241652 Narrative: Patient Name: ANMOL REYNOLDS : 1960 [id number] Exam Date/Time: 04/14/2024 16:39 Procedure: XR CHEST [...] accounting for open encounter. Hospitalist Progress Note 04/17/20246994930-4004: Please page me ([phone]) for patient care issues. [phone]: Please page [facility] Hospitalist for any issues. Subjective: Admit Date: 04/14/2024 PCP: AMBROSIO MONROY DO Room#: 222-04/222-04 A Interval History: No overnight issues. Denies chest pain or sob. No abdominal pain, nausea, vomiting. No fevers or chills. Adult diet Regular; 5 carb choices (75 gm/meal) @[id number]@ 24HR INTAKE/OUTPUT: Intake/Output Summary (Last 24 hours) at 04/17/2024 0846 Last data filed at 04/17/2024 0621 Gross per 24 hour Intake 1876 ml Output 2535 ml Net -659 ml Past Medical History: Past Medical History: Diagnosis Date Abscess, perineum Chronic back pain Hip sprain Hyperlipidemia Hypertension Neuropathy Osteoarthritis Sciatica Type 2 diabetes mellitus without complication ([facility]) ([facility]) LABS: CBC: Recent Labs 04/15/24 04004/16/24 0515 04/17/24 0342 WBC 11.2* 11.9* 7.9 RBC 3.85* 3.91* 3.83* HGB 11.9* 12.0* 11.5* HCT 36.2* 37.2* 35.4* MCV 94.0 95.1 92.4 RDW 14.9 15.2* 14.9 PLT 107* 76* 77* BMP: Recent Labs 04/15/24 0407 04/16/24 0515 04/17/24 0342 NA 135 137 135 K 3.6 4.3 [...] MD Division of Hospitalist Medicine Inpatient Medical Services/[facility] PAGER: Epic chat Images from the original note were not included. [facility] - Infectious Diseases Attending Progress Note Subjective: [...] time. Labs: Recent Labs 04/14/24 1603 04/14/24 23104/15/24 0407 04/16/24 0515 NA 137 -- 135 [...] #1 - Assess for effectiveness of treatment [[id number]] Blood, Venous Preliminary result Component Value Blood Culture Blood culture incubation started P 04/16/2024 0654 04/16/2024 1101 Blood culture Site #2 - Assess for effectiveness of treatment [[id number]] Blood, Venous Preliminary result Component Value Blood Culture Blood culture incubation started P 04/15/2024 1713 04/15/2024 2208 MRSA by PCR [[id number]] (Abnormal) ESwab from Nasal Final result Component Value Staphylococcus aureus Detected Abnormal mecA gene Not Detected 04/15/2024 0103 04/16/2024 1135 Urine culture [[id number]] (Abnormal) Urine, Clean Catch Preliminary result Component Value Urine Culture Normal urogenital gosia present P 50,000-90,000 CFU/mL Providencia stuartii Abnormal P 04/14/2024 1631 04/16/2024 1204 Blood culture Site #1 - Suspected Infection [[id number]] (Abnormal) Blood, Venous Preliminary result Component Value Blood Culture Proteus mirabilis Panic P Providencia stuartii Panic P Morganella morganii Panic P 04/14/2024 1631 04/16/2024 1204 Blood culture Site #2 - Suspected Infection [[id number]] (Abnormal) Blood, Venous Preliminary result Component Value Blood Culture Morganella morganii Panic P For identification and/or sensitivity, refer to culture collected on: 04/14/24 at 16:31, [id number]. This is an edited result. Previous organism was Gram-negative bacilli on 04/15/2024 at 0835 EDT. 04/14/2024 1631 04/15/2024 0828 Blood Culture Identification - Anaerobic [[id number]] (Abnormal) Blood, Venous Final result Component Value Proteus species Detected Abnormal Lines: PIV Radiography/Echo/Other: Procedure Component Value Units Date/Time FL pyelogram retrograde [[id number]] Resulted: 04/14/242216 Order Status: Completed Updated: 04/14/242216 Narrative: There is no interpretation needed for this exam. CT abdomen pelvis wo IV contrast [[id number]] Collected: 04/14/241928 Order Status: Completed Updated: 04/14/241938 Narrative: Patient Name: ANMOL REYNOLDS : 1960 Exam Date/Time: 04/14/2024 19:28 Procedure: CT ABDOMEN PELVIS WO IV CONTRAST Ordering Provider: [facility] [place] Reason For Exam: Sepsis CT ABDOMEN AND [...] 7:37 PM EDT XR chest 1 view [[id number]] Collected: 07/11/24 1651 Order Status: Completed Updated: 04/14/241652 Narrative: Patient Name: ANMOL REYNOLDS : 1960 [facility]#: [id number] Exam Date/Time: 04/14/2024 16:39 Procedure: XR CHEST [...] original note were not included. OCCUPATIONAL THERAPY [facility] ED's Name/MRN: Anmol Reynolds ([id number]) Date: 04/16/2024 OT evaluation and treat orders received. PT spoke to patient at bedside. Pt is from [facility] and is paraplegic with everett lift to electric w/c. Pt also requires assist with ADLs. Pt states receives very minimal therapy services at [facility]. Pt has no current acute OT needs and is at baseline LOF. Rec return to [facility]. Chelita Blanc OT ICU Progress Note Name: Anmol Reynolds : 1960(63 y.o.) Date: 04/16/24 Team: MICU Chief Complaint: obstructed santana catheter, septic shock Subjective: Hospital Summary: 63 yoM with history of paraplegia after lumbar surgeries, [facility] resident, history of recurrent UTIs in [...] Normal [] Scar/Lesion/Mass Inspection of teeth/lips/gums Dentition: [x][place] Teeth []Dentures Lips/Gums: [x]Intact []Lesion Present Mucosa: []Struble []Moist [x]Dry Neck: External Appearance Overall Appearance: [...] hours- BMP: Recent Labs 04/14/24 16004/15/24 0407 04/16/24 0515 NA 137 135 137 [...] 04/14/242317 PROCAL 27.06* CBC: Recent Labs 04/14/24 2318 04/15/24 0407 04/16/24 0515 WBC 5.4 11.2* 11.9* HGB 12.4* 11.9* 12.0* HCT 39.1* 36.2* 37.2* PLT 117* 107* 76* MCV 97.0 94.0 95.1 RDW 14.8 14.9 15.2* ABGs: Recent Labs 04/14/24 1730 [id number] Room Air Lactic Acid: Recent Labs 04/14/24231704/15/247 04/15/24 0844 LACTATE 4.9* 3.6* 2.0 INR: [...] creatinine, and vancomycin levels interfaced automatically to [facility] and data has been analyzed and interpreted. [...] assess Fluid Accumulation: Mild Extremities (+2 ble) Thermoforming Machine Operator Strength: Not Performed Nutrition Assessment: per MD-pISTORY OF PRESENT ILLNESS: Anmol is a 63 y.o. male with , recurrent UTI at [facility] who presented to the ED today [...] WBC 1.5, er case manger-npatient status from [facility] with sepsis. Urology consulted due to [...] of paraplegia and states has been at [facility] for a year and wishes to [...] On: Kcal/kg Weight Used for Energy Requirements: [place] Weight for Energy Calculation (kg): 82.41 kg Total Energy Requirements (kcals/day): 28-30 or 2307- 24 72 Weight Used for Protein Requirements: [place] Weight in Kg Used for Protein Requirements: [...] (183 lb) % Weight Change (Calculated): 12.2 [place] Body Weight (lbs) (Calculated): 196 lbs [place] Body Weight (Kg) (Calculated): 89 kg % [place] Body Weight (Calculated): 104.7 % BMI (kg/m2) (Calculated): 25.7 Weight Adjustment For: Paraplegia % Weight Adjustment: 7.5 - Paraplegia Total Adjusted Percentage (Calculated): 7.5 Adjusted [place] Body Weight (lbs) (Calculated): 181.3 lbs Adjusted [place] Body Weight (kg) (Calculated): 82.41 kg Adjusted [...] Oral Nutrition Supplement Isabel Lieberman RD Contact: *[phone] or secure chat ICU Progress Note Name: Anmol Franco Gail : 1960(63 y.o.) Date: 04/15/24 Team: MICU Chief Complaint: obstructed santana catheter, septic shock Subjective: Hospital Summary: 63 yoM with history of paraplegia after lumbar surgeries, [facility] resident, history of recurrent UTIs in [...] (98.8 F) (04/15/24 0411) Pulse 101 (04/15/24 08) Resp 16 (04/15/24 08) SpO2 97 % [...] Normal [] Scar/Lesion/Mass Inspection of teeth/lips/gums Dentition: [x][place] Teeth []Dentures Lips/Gums: [x]Intact []Lesion Present Mucosa: []Struble []Moist [x]Dry Neck: External Appearance Overall Appearance: [...] -- Glucose: Recent Labs 04/14/24 1603 04/14/24 22104/14/24 2220 04/14/24 2332 04/15/24 0407 04/15/24 0608 GLUCOSE 259* -- -- -- 286* -- POCGLU -- 226* 210* 223* -- 285* BHYDRXBUT 1.08 -- -- -- -- -- Procal: Recent Labs 04/14/242317 PROCAL 27.06* CBC: Recent Labs 04/14/24 1603 04/14/24 1730 04/14/248 04/15/24 0407 WBC 1.5* -- 5.4 11.2* HGB 15.2 13.7 12.4* 11.9* HCT 47.3 -- 39.1* 36.2* PLT 183 -- 117* 107* MCV 95.6 -- 97.0 94.0 RDW 14.8 -- 14.8 14.9 ABGs: Recent Labs 04/14/24 1730 [id number] Room Air Lactic Acid: Recent Labs 04/14/24 1859 04/14/24231704/15/24 0407 LACTATE 3.9* 4.9* 3.6* INR: Recent Labs 04/14/242004 INR 2.7* Cardiac Injury Profile: Recent Labs 04/14/24 160 TROPONINI <0.012 Labs in Last 3 months: [...] original note were not included. PHYSICAL THERAPY [facility] Name/MRN: Anmol Reynolds ([id number]) Date: 04/15/2024 PT evaluation and treat orders received. Spoke to patient at bedside. Pt is from [place] and is paraplegic with everett lift to electric w/c. Pt states receives very minimal therapy services at [facility]. Pt has no current acute PT needs and is at baseline LOF. Rec return to [facility]. Nakita Kwan PT Images from the original note were not included. [facility] Inpatient Progress Note 04/15/2024 at 9:33 [...] in patient's urologic status. Joe Hammer, DNP, PATTERN MARKING SUPERVISOR, [facility] Subjective: Interval History: No overnight issues. [...] Type 2 diabetes mellitus without complication ([facility]/HCC) ([facility]) Objective: Vitals: BP 108/67 Pulse 92 [...] mg, 400 mg, IntraVENous, q24h, Brad Mujica, PATTERN MARKING SUPERVISOR - [facility], Stopped at 04/15/24 0254 glucagon (human [...] in 0.9% sodium chloride 250 mL infusion (Plq-Hxkksp-Falju) (premix), 2-50 mcg/min, IntraVENous, Continuous, Pedro Luis [...] portions of this chart were dictated using [employer] voice recognition software. It is possible that typos and/or omissions and/or substitutions of words and/or phrases may exist, which may alter the intended meaning of the dictating provider. On this date 04/15/2024 I have spent 35 minutes onmm-em-lhzm time, reviewing previous notes, test results and [...] creatinine, and vancomycin levels interfaced automatically to [facility] and data has been analyzed and interpreted. [...] Ongoing ICU care/mgmt documented in this encounter [facility] 04-17-2024 Consult note Associated Order (s): PHARMACY TO DOSE VANCO Vancomycin therapy has been discontinued by Dr. Moyer on 04-17. Thank you for the consult. Pharmacy signing off for vancomycin dosing. Carmel Collins RPh, Date: 04/17/24 Time: 1:40 PM Associated Order(s): IP CONSULT TO INFECTIOUS DISEASES Images from the original note were not included. [facility] - Infectious Diseases Attending Consult Note Reason [...] diabetes mellitus without complication (CMS/HCC) ([facility]) Past Surgical History: Past Surgical History: [...] mg 400 mg IntraVENous q24h Brad Mujica, JOE - 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 Stopped at 04/15/24 0254 glucagon (human recombinant) [...] Units SubCUTAneous q6h Brad Mujica APRN - 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 3 Units at 04/15/24 1334 Insulin Lispro [...] in 0.9% sodium chloride 250 mL infusion (Bam-Dpovjf-Krvof) (premix) 2-50 mcg/min IntraVENous Continuous Pedro Luis [...] Resource Strain: Low Risk (04/24/2023) [facility] Overall Financial Resource Strain (CARDIA) Difficulty [...] -- 73 12 97 % -- -- 04/15/241135 -- -- -- 72 14 96 % -- -- 04/15/241134 -- -- -- 74 12 98 % -- -- 04/15/24 113 -- -- -- 71 (!) 10 97 % -- -- 04/15/241132 -- -- -- 71 (!) 10 97 [...] 70 (!) 11 96 % -- -- 04/15/243 -- -- -- 71 (!) 11 96 % -- -- 07/12/24 1122 -- -- -- 70 (!) 11 [...] -- 76 12 95 % -- -- 04/15/246 -- -- -- 76 12 95 % [...] 85 (!) 11 95 % -- -- 04/15/24930 117/76 -- -- 87 15 94 % [...] 88 13 92 % -- -- 04/15/24 07 (!) 63/49 -- -- 90 13 93 [...] hours. 04/15/2024 0103 04/15/2024 0107 Urine culture [[id number]] Urine, Clean Catch In process Component Value No component results 04/14/2024 1631 04/15/2024 0835 Blood culture Site #1 - Suspected Infection [[id number]] (Abnormal) Blood, Venous Preliminary result Component Value Blood Culture Gram-negative bacilli Panic P 04/14/2024 1631 04/15/2024 0835 Blood culture Site #2 - Suspected Infection [[id number]] (Abnormal) Blood, Venous Preliminary result Component Value Blood Culture Gram-negative bacilli Panic P 04/14/2024 1631 04/15/2024 0828 Blood Culture Identification - Anaerobic [[id number]] (Abnormal) Blood, Venous Final result Component Value Proteus species Detected Abnormal Lines: PIV Radiography/Echo/Other: CT abdomen pelvis wo IV contrast [[id number]] Collected: 04/14/241928 Order Status: Completed Updated: 04/14/241938 Narrative: Patient Name: ANMOL REYNOLDS : 1960 Exam Date/Time: 04/14/2024 19:28 Procedure: CT ABDOMEN PELVIS WO IV CONTRAST Ordering Provider: [facility] Reason For Exam: Sepsis CT ABDOMEN AND [...] 7:37 PM EDT XR chest 1 view [[id number]] Collected: 04/14/241650 Order Status: Completed Updated: 04/14/241652 Narrative: Patient Name: ANMOL REYNOLDS : 1960 [id number] Exam Date/Time: 04/14/2024 16:39 Procedure: XR CHEST 1 VIEW Ordering Provider: [facility], [place] Reason For Exam: sepsis INDICATION: Sepsis. VIEWS: [...] open encounter. Associated Order(s): IP CONSULT TO CERTIFIED PROFESSIONAL MIDWIFE This patient is not a new diabetic [...] associated supplies are needed. Thank you. Karlos PAVON,BSN,[place]- Images from the original note were not [...] creatinine, and vancomycin levels interfaced automatically to [facility] and data has been analyzed and interpreted. [...] er due to clogged santana. Data Afebrile [id number] Pulse-120 Creat-1.24 Co2-19 Lactic 5.1>>3.9 Wbc 1.5 [...] Resource Strain: Low Risk (04/24/2023) Received from [facility] Overall Financial Resource Strain (CARDIA) Difficulty of Paying Living Expenses: Not hard at all Food Insecurity: No Food Insecurity (04/24/2023) Received from [facility] Hunger Vital Sign Worried About Running Out of Food in the Last Year: Never true Ran Out of Food in the Last Year: Never true Transportation Needs: No Transportation Needs (04/24/2023) Received from [facility] PRAPARE - Transportation Lack of Transportation (Medical): No Lack of Transportation (Non-Medical): No Physical Activity: Not on file Stress: Not on file Social Connections: Not on file Intimate Partner Violence: Not on file Housing Stability: High Risk (04/24/2023) Received from [facility] Housing Stability Vital Sign Unable to Pay for Housing in the Last Year: No Number of Places Lived in the Last Year: 4 In the last 12 months, was there a time when you did not have a steady place to sleep or slept in a skilled nursing (including now)?: No Review of Systems Constitutional: [...] paraplegic patient, history of recurrent UTI at [facility] who presented to the ED today [...] diabetes mellitus without complication (CMS/HCC) ([facility]) Past Surgical History: Procedure Laterality Date [...] Resource Strain: Low Risk (04/24/2023) Received from [facility] Overall Financial Resource Strain (CARDIA) Difficulty of Paying Living Expenses: Not hard at all Food Insecurity: No Food Insecurity (04/24/2023) Received from [facility] Hunger Vital Sign Worried About Running Out of Food in the Last Year: Never true Ran Out of Food in the Last Year: Never true Transportation Needs: No Transportation Needs (04/24/2023) Received from [facility] PRAPARE - Transportation Lack of Transportation (Medical): No Lack of Transportation (Non-Medical): No Physical Activity: Not on file Stress: Not on file Social Connections: Not on file Intimate Partner Violence: Not on file Housing Stability: High Risk (04/24/2023) Received from [facility] Housing Stability Vital Sign Unable to Pay for Housing in the Last Year: No Number of Places Lived in the Last Year: 4 In the last 12 months, was there a time when you did not have a steady place to sleep or slept in a skilled nursing (including now)?: No No Known Allergies Prior [...] (Flexeril) 10 MG tablet 12/17/23 Historical Provider, MD docusate sodium (Colace) 100 MG tablet Take [...] Normal [] Scar/Lesion/Mass Inspection of teeth/lips/gums Dentition: [][place] Teeth []Dentures Lips/Gums: []Intact []Lesion Present Mucosa: []Struble [x]Moist []Dry Neck: External Appearance Overall Appearance: [...] 14.8 -- ABGs: Recent Labs 04/14/24 1730 [id number] Room Air Lactic Acid: Recent Labs 04/14/24 [...] Consider meropenem. \ documented in this encounter [facility] 04-15-2024 Telephone encounter Note SURGERY SCHEDULING Surgeon: Dr. Dashawn Grimm PROCEDURE: Cystoscopy, possible cystolitholapaxy, bilateral ureteroscopy, bilateral laser lithotripsy, bilateral ureteral stent change - Special request: Astrid laser DIAGNOSIS: Bladder calculus, bilateral ureteral stones [facility] or [facility] DETAILS: OUTPT ANESTHESIA: GENERAL TIME REQUESTED: 2hr DATE REQUESTED: Must be minimum of 2 weeks from today due to infection SURGERY ORDERS: Already placed by Joe Hammer NP on 04/15/2024 POST OP FOLLOW UP: cysto stent removal 2 wks [facility] 04-15-2024 History and physical note Images from the original note were not included. Attending History and Physical Admit Date: 04/14/2024 PCP: AMBROSIO MONROY DO CHIEF COMPLAINT: UTI Reason for Admission: Seps History Obtained From: patient HISTORY OF PRESENT ILLNESS: Anmol is a 63 y.o. male with , recurrent UTI at [facility] who presented to the ED today [...] called and patient to go to OR [facility]. Will admit for further evaluation and management. Past Medical History: Past Medical History: Diagnosis Date Abscess, perineum Chronic back pain Hip sprain Hyperlipidemia Hypertension Neuropathy Osteoarthritis Sciatica Type 2 diabetes mellitus without complication (CMS/HCC) ([facility]) Past Surgical History: Past Surgical History: [...] Resource Strain: Low Risk (04/24/2023) [facility] Overall Financial Resource Strain (CARDIA) Difficulty of Paying Living Expenses: Not hard at all Food Insecurity: No Food Insecurity (04/24/2023) Received from [facility] Hunger Vital Sign Worried About Running Out of Food in the Last Year: Never true Ran Out of Food in the Last Year: Never true Transportation Needs: No Transportation Needs (04/24/2023) Received from [facility] PRAPARE - Transportation Lack of Transportation (Medical): No Lack of Transportation (Non-Medical): No Physical Activity: Not on file Stress: Not on file Social Connections: Not on file Intimate Partner Violence: Not on file Housing Stability: High Risk (04/24/2023) Received from [facility] Housing Stability Vital Sign Unable to Pay for Housing in the Last Year: No Number of Places Lived in the Last Year: 4 In the last 12 months, was there a time when you did not have a steady place to sleep or slept in a skilled nursing (including now)?: No Family History: No family [...] - DO NOT do CPR, intubation] [_] [DNR-STEEL ERECTOR APPRENTICE - Comfort care only] [_] DNR form [...] Orquidea Marti MD Division of Hospitalist Medicine [facility] documented in this encounter [facility] 04-14-2024 Emergency department Note Both sets of blood cultures obtained from each PIV when started. Samples labeled and at bedside in case BC ordered Leyla Mendoza RN 04/14/24 7975 Patient arrives via EMS from [facility] with c/o Santana catheter not draining, [...] diabetes mellitus without complication (CMS/HCC) ([facility]) SURGICAL HISTORY Past Surgical History: Procedure [...] Resource Strain: Low Risk (04/24/2023) Received from [facility] Overall Financial Resource Strain (CARDIA) Difficulty of Paying Living Expenses: Not hard at all Food Insecurity: No Food Insecurity (04/24/2023) Received from [facility] Hunger Vital Sign Worried About Running Out of Food in the Last Year: Never true Ran Out of Food in the Last Year: Never true Transportation Needs: No Transportation Needs (04/24/2023) Received from [facility] PRAPARE - Transportation Lack of Transportation (Medical): No Lack of Transportation (Non-Medical): No Housing Stability: High Risk (04/24/2023) Received from [facility] Housing Stability Vital Sign Unable to Pay for Housing in the Last Year: No Number of Places Lived in the Last Year: 4 In the last 12 months, was there a time when you did not have a steady place to sleep or slept in a skilled nursing (including now)?: No SCREENINGS PHYSICAL EXAM ED Triage Vitals [04/14/24 1555] Temp Heart Rate Resp BP 37.6 C (99.6 F) (!) 121 20 -- SpO2 Temp Source Heart Rate Source Patient Position 99 % Oral Monitor Lying BP Location FiO2 (%) Left arm -- Cnfdupd-eudx-qolckbaru, slightly toxic-appearing HEENT- atraumatic, normocephalic Neck- no [...] Culture. Procedure Abnormality Status --------- ------ Complete Urinalysis[[id number]] Please view results for these tests on [...] Dickens MD 04/14/242003 documented in this encounter [facility] 04-13-2024 Telephone encounter Note Called pt on his room number but unable to reach him or leave a message. I called nursing staff at the [place] where he lives and was able to leave a message with nursing regarding his MRI findings and that I would like to speak with him and recommendations to schedule visit with SCI rehab and spine surgery. Vaishali Pierre DO [facility] 04-06-2024 Telephone encounter Note Telephoned [place] pt at dinner and heel brusher states she cannot pull pt away from dinner. [facility] 04-06-2024 Telephone encounter Note Called pt regarding his MRI, which showed: IMPRESSION: Acute-subacute sacral insufficiency fracture at S2. Postoperative and degenerative changes of the lumbar spine with linear granulation tissue at L2-3 and tethering of the cauda equina suggesting sequelae of chronic arachnoiditis. No evidence of osteomyelitis discitis or epidural abscess. He [facility] currently out [facility] the [facility], but I was able [...] to the above findings.He does not have [employer] set up to message. Vaishali Pierre DO [facility] 02-10-2024 Instructions Vaishali Pierre DO - 02/10/2024 1:53 PM EDT - xrays of the low back - can schedule the MRI of the lumbar spine - I recommend seeing one of my colleagues in the spinal cord injury clinic documented in this encounter [facility] 02-10-2024 History of Present illness Narrative Physical [...] currently in a nursing facility, [facility]. Bladder management is via Santana catheter. [...] the spinal cord injury clinic for watermelon inspector SCI related management. Vaishali Pierre DO Physical Medicine and Rehabilitation Vitals not obtained per provider's instructions. documented in this encounter [facility] 01-29-2024 History of Present illness Narrative Images from the original note were not included. [facility] [address] [place] [address] Dept: [phone] Dept Chief Complaint Patient presents with Pain [...] abscess 10/15/2020 Diabetes mellitus without complication (CMS/HCC) ([facility]) 10/15/2020 Abnormal finding on EKG 10/15/2020 Other intervertebral disc displacement, lumbar region 10/15/2020 Lumbar radiculopathy 10/04/2020 Herniated nucleus pulposus, L5-S1, left 07/07/2017 No Known Allergies No family history on file. Past Medical History: Diagnosis Date Abscess, perineum Chronic back pain Hip sprain Hyperlipidemia Hypertension Neuropathy Osteoarthritis Sciatica Type 2 diabetes mellitus without complication (CMS/HCC) ([facility]) Social History Socioeconomic History Marital status: [...] follow-ups on file. documented in this encounter [facility] 12-29-2023 History of Present illness Narrative Images from the original note were not included. [facility] [address] [place] [address] Dept: [phone] Dept Chief Complaint Patient presents with New [...] abscess 10/15/2020 Diabetes mellitus without complication ([facility]) (HCC) 10/15/2020 Abnormal finding on EKG 10/15/2020 [...] mobility Other reduced mobility Paraplegia ([facility]) Sciatica Spinal stenosis of lumbar region with neurogenic claudication Type 2 diabetes mellitus without complication ([facility]) ([facility]) Urinary calculus, unspecified UTI (urinary tract [...] Resource Strain: Low Risk (04/24/2023) Re[facility] Overall Financial Resource Strain (CARDIA) Difficulty [...] follow-ups on file. documented in this encounter [facility] 09-08-2023 Telephone encounter Note Called and left message for doug to call to schedule patient a new patient appointment [facility] 09-08-2023 Miscellaneous Notes Called and left message for doug to call to schedule patient a new patient appointment Name of caller: Doug Contact phone number: [phone] Relationship to Patient: [facility] Provider: Practice: Pain Management Chief Complaint/Reason for Call: Doug states she mailed the referral over to the office and would like to know if the office received it. Please advise Best time of day caller can be reached: Any Patient advised that office/PCP has 24-48 business hours to return their call: Yes documented in this encounter [facility] 09-04-2023 Telephone encounter Note Name of caller: Doug Contact phone number: [phone] Relationship to Patient: [facility] Provider: Practice: Pain Management Chief Complaint/Reason for Call: Doug states she mailed the referral over to the office and would like to know if the office received it. Please advise Best time of day caller can be reached: Any Patient advised that office/PCP has 24-48 business hours to return their call: Yes [facility] 08-19-2023 Telephone encounter Note Returned call gave fax number gave address to mail referral [facility] 08-19-2023 Miscellaneous Notes Returned call gave fax number gave address to mail referral Name of caller: Doug Contact phone number: [phone] Relationship to Patient: [facility] [place] Provider: Dr. Gillette Practice: Pain Management Chief [...] Name of caller: Doug Contact phone number: [phone] Relationship to Patient: [facility] [place] Provider: Dr. Gillette Practice: Pain Management Chief Complaint/Reason for Call: Doug states she would like a call back to confirm receipt of the patient's referral for DATA MANAGEMENT CONSULTANT appt scheduling (fax number confirmed). Please contact Doug and advise. Best time of day caller can be reached: Any Patient advised that office/PCP has 24-48 business hours to return their call: No documented in this encounter [facility] 08-19-2023 Telephone encounter Note Name of caller: [facility] Contact phone number: [phone] Relationship to Patient: [facility] [place] Provider: Dr. Gillette Practice: Pain Management Chief Complaint/Reason for Call: Pt claims that fax of referral will not go threw and was hoping someone could give her a call back to go over the referral please advise Best time of day caller can be reached: Any Patient advised that office/PCP has 24-48 business hours to return their call: No [facility] 08-19-2023 Telephone encounter Note Name of caller: [facility] Contact phone number: [phone] Relationship to Patient: [facility] [place] Provider: Dr. Gillette Practice: Pain Management Chief Complaint/Reason for Call: Doug states she would like a call back to confirm receipt of the patient's referral for DATA MANAGEMENT CONSULTANT appt scheduling (fax number confirmed). Please contact Doug and advise. Best time of day caller can be reached: Any Patient advised that office/PCP has 24-48 business hours to return their call: No [facility] 08-13-2023 Telephone encounter Note Called and gave fax number to send referral [facility] 08-13-2023 Miscellaneous Notes Called and gave fax number to send referral Pt is asking for a call back to be scheduled Left message for patient to call the office Returned call will call thursday Name of Caller: Doug Crowell [place] Contact Reason for Appointment: Doug states that they faxed over a referral for patient a few days ago and is calling to schedule a DATA MANAGEMENT CONSULTANT appointment. Please advise. [facility] Med[facility] Refills need, if any: none Medication Name: n/a ` documented in this encounter [facility] 08-13-2023 Telephone encounter Note Pt is asking for a call back to be scheduled [facility] 08-12-2023 Telephone encounter Note Left message for patient to call the office [facility] 08-07-2023 Telephone encounter Note Returned call will call thursday [facility] 08-06-2023 Telephone encounter Note Name of Caller: Doug - [facility] Contact Reason for Appointment: Doug states that they faxed over a referral for patient a few days ago and is calling to schedule a DATA MANAGEMENT CONSULTANT appointment. Please advise. Office Name: [facility] Medication Refills need, if any: none Medication Name: n/a ` [facility] 05-23-2023 Emergency department Note Physicians A.S. arrived and report given. Patient loaded and sent back to SNF. Vladimir Dimas RN 05/23/23 1207 [facility] 05-23-2023 Emergency department Note Physicians A.S. [...] Type 2 diabetes mellitus without complication ([facility]) SURGICAL HISTORY Past Surgical History: Procedure [...] Culture. Procedure Abnormality Status --------- ------ Complete Urinalysis[[id number]] Abnormal Final result Please view results for [...] paraplegia . Liliana Klein DO am the rn clinician of record. PROCEDURES: Unless otherwise noted below, none Procedures FINAL IMPRESSION 1. Urinary tract infection associated with indwelling urethral catheter, initial encounter ([facility]) DISPOSITION Discharge 05/23/2023 09:53:37 AM PATIENT REFERRED TO: Ambrosio Monroy DO [address] [facility] [address] [facility] ED [address] [facility] [address] DISCHARGE MEDICATIONS: New Prescriptions [...] santana without success. documented in this encounter [facility] 05-23-2023 Emergency department Note Inserted a santana and drained initially 100ml of blood and puss. Bladder scan showed 500+ ml of fluid in bladder. Obtained OK from ED Attending to manually flush and drain the catheter. After using 30 ml of NS to flush patient the urine began to flow into the santana bag. Urine sample sent. Vladimir Dimas RN 05/23/23 1013 [facility] 05-23-2023 Emergency department Note Bed: 18 Expected date: Expected time: Means of arrival: Comments: Adelia Banuelos 05/23/23 0746 [facility] 05-23-2023 Emergency department Triage note Patient with chronic santana due to history of paraplegia that became clogged with blood clots. Patient had lithotripsy due to stone recently. SNF attempted several times to reinsert santana without success. [facility] 05-23-2023 Physician Emergency department Note EMERGENCY [...] Type 2 diabetes mellitus without complication ([facility]) SURGICAL HISTORY Past Surgical History: Procedure [...] Culture. Procedure Abnormality Status --------- ------ Complete Urinalysis[[id number]] Abnormal Final result Please view results for [...] . I Colt Klein DO am the rn clinician of record. PROCEDURES: Unless otherwise noted below, none Procedures FINAL IMPRESSION 1. Urinary tract infection associated with indwelling urethral catheter, initial encounter (HCC) DISPOSITION Discharge 05/23/2023 09:53:37 AM PATIENT REFERRED TO: Ambrosio Monroy, [address] [facility] [address] [facility] ED [address] [facility] [address] DISCHARGE MEDICATIONS: New Prescriptions CEPHALEXIN [...] Medicine Provider Colt Klein DO 05/23/23 1010 [facility] 04-21-2022 Note HNO ID: [id number] Author: Cindi Cuellar PA-C Service: ? Author Type: Physician Director Video Type: Progress Notes Filed: 04/21/2022 12:25 PM Note Text: Actionable Finding: Reviewed patient's chart. The actionable finding of MRI lumbar , dated 02/14/22 was followed up by unknown and unsure if the patient was contacted regarding the MRI results. Unable to reach patient. Staff msg sent to Dr Kelly - patient spine surgeon. Cindi Cuellar PA-C [facility] 04-21-2022 Note Patient Outreach (SP NSMN) GIVEN,ANMOL ([id number]) 1960 M Date Time Provider Department 04/21/22 [...] Of Date 04/21/2022 Noted Resolved NO SHOW [[id number]] 08/31/2013 05/29/2020 Perineal abscess [L02.215] 06/13/2019 05/29/2020 [...] Encounter Status:Closed by CINDI CUELLAR on 04/21/22 [facility] 04-21-2022 Note Patient Outreach (SP NSMN) GIVENANMOL ([id number]) 1960 M Date Time Provider Department 04/21/22 [...] Encounter Status:Closed by CINDI CUELLAR on 04/21/22 [facility] 04-21-2022 History of Present illness Narrative Actionable Finding: Reviewed patient's chart. The actionable finding of MRI lumbar , dated 02/14/22 was followed up by unknown and unsure if the patient was contacted regarding the MRI results. Unable to reach patient. Staff msg sent to Dr Kelly - patient spine surgeon. Cindi Cuellar PA-C documented in this encounter [facility] 02-14-2022 History of Present illness Narrative [...] PERIPHERAL IV DATA: Ambulatory: Picc line from [facility] RADIOLOGY DEPARTMENT: MR; Exam(s) Completed: Head: Routine Brain Spine: WHOLE spine SIGNATURE: RT Kasandra(Ector) PATIENT NAME: Anmol Reynolds DATE: February 14, 2022 TIME: 12:27 PM documented in this encounter [facility] 08-05-2021 Note HNO ID: [id number] Author: Penny Cameron MD Service: ? Author [...] CT chest abd/pelvis (more content not included)... [facility] 01-16-2021 History of Past i llness Narrative Problem Noted Date Resolved Date Perirectal abscess 01/16/2021 08/21/2021 Perineal abscess 06/13/2019 05/29/2020 NO SHOW 08/31/2013 05/29/2020 documented as of this encounter (statuses as of 02/15/2022) [facility] History of Past illness Narrative* Problem Noted Date Resolved Date Perirectal abscess 01/16/2021 08/21/2021 Perineal abscess 06/13/2019 05/29/2020 NO SHOW 08/31/2013 05/29/2020 documented as of this encounter (statuses as of 04/21/2022) [facility] assessment information [facility] Work Phone: Evaluation note* Diagnosis Urinary tract infection associated with indwelling urethral catheter, initial encounter (HCC)- Primary [facility] Diagnosis Injury of lumbar spinal cord, sequela (HCC)- Primary Neuropathic pain [facility] Diagnosis Paraplegia (HCC)- Primary Paraplegia History of lumbar fusion Paraplegia (HCC) Paraplegia History of [facility] Par[facility]legia (HCC) Paraplegia History of lumbar fusion [facility] Diagnosis Bilateral ureteral calculi- Primary Bladder calculus Other calculus in bladder [facility] Diagnosis Septic shock (HCC)- Primary Septic shock (HCC) Urinary obstruction Decubitus ulcer of sacral region, stage 2 (HCC) Injury of lumbar spinal cord, sequela (HCC) Neuropathic pain Pressure injury of coccygeal region, stage 3 (HCC) Bacteremia Pressure injury of coccygeal region, stage 3 (HCC) Calculus of ureter [facility] Diagnosis Paraplegia (HCC)- Primary Paraplegia History of lumbar fusion Sacral insufficiency fracture, initial encounter [facility]* Diagnosis Bladder calculus- Primary Other calculus in bladder Bladder calculus Other calculus in bladder Bilateral ureteral calculi Calculus of ureter [facility] Diagnosis Sacral insufficiency fracture, initial encounter [facility] Diagnosis Sacral insufficiency fracture, initial encounter- Primary Failed back surgical syndrome Other unspecified back disorder Sacral insufficiency fracture, initial encounter [facility]* Diagnosis Positive blood cultures- Primary Positive blood cultures Lumbar stenosis with neurogenic claudication Osteoarthritis, unspecified osteoarthritis type, unspecified site Other intervertebral disc displacement, lumbar region Pressure injury of coccygeal region, stage 3 (HCC) [facility] Diagnosis Spinal cord injury, lumbar, without spinal bone injury, sequela (HCC)- Primary Neuropathic pain [facility] Diagnosis Paraplegia (HCC)- Primary Paraplegia Reflex [...] unspecified stage- Primary [facility] Diagnosis Chronic osteomyelitis (HCC)- Primary Chronic [...] Other postprocedural status [facility]* Diagnosis Paraplegia (HCC)- Primary Paraplegia Neurogenic bladder Neurogenic bladder, NOS Gross hematuria Neuropathic pain Neuralgia, neuritis, and radiculitis, unspecified Pressure injury of skin, unspecified injury stage, unspecified location [facility] Diagnosis Ureteral stent present- Primary Kidney stone Calculus of kidney Hydronephrosis, unspecified hydronephrosis type documented [facility]* Diagnosis Chronic osteomyelitis (HCC)- Primary Chronic osteomyelitis, site unspecified Severe protein-calorie malnutrition (HCC) Other severe protein-calorie malnutrition Ureteral calculi Calculus of ureter Complicated UTI (urinary tract infection) Urinary tract infection, site not specified Neurogenic bladder Neurogenic bladder, NOS Type 2 diabetes mellitus with hyperglycemia, with long-term current use of insulin (HCC) documented [facility]* Diagnosis Other acute osteomyelitis, other site (HCC)- Primary Other acute osteomyelitis, other site (HCC) Pressure injury of coccygeal region, stage 3 (HCC) Lumbar stenosis with neurogenic claudication Osteoarthritis, unspecified osteoarthritis type, unspecified site Other intervertebral disc displacement, lumbar region Pressure injury of coccygeal region, stage 3 (HCC) documented in this encounter [facility] note* Diagnosis Pressure injury of coccygeal region, stage 3 (HCC)- Primary Other acute osteomyelitis, other site (HCC) MRSA (methicillin resistant Staphylococcus aureus) infection Methicillin resistant Staphylococcus aureus in conditions classified elsewhere and of unspecified site Encounter for long-term (current) use of antibiotics Paraplegia (HCC) Paraplegia documented in this encounter [facility] Discharge instructions* Attachments The following attachments cannot be sent through Care Everywhere. * Urinary Tract Infections in Adults (Botswanan) [facility] ([facility])* Consultation (Routine) - Pending Review Specialty Diagnoses / Procedures Referred By Contac t Referred To Contact Urology Diagnoses Urinary obstruction Procedures ND OFFICE/OUTPATIENT NEW HIGH MDM 60 MINUTES Otis Mckenzie DO [address] [place] [address] Dashawn Grimm MD [address] [address] Referral ID Status Reason Start Date Expiration Date Visits Requested Visits Authorized [id number] Pending Review Specialty Services Required 04/20/2024 04/20/2025 1 1 * Consultation (Routine) - Pending Review Specialty Diagnoses / Procedures Referred By Contac t Referred To Contact Wound Care Diagnoses Decubitus ulcer of sacral region, stage 2 (HCC) Procedures ND OFFICE/OUTPATIENT NEW HIGH MDM 60 MINUTES Sumi Everett, JOE - 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 [address] [place] [address] Sb Op Wnd Ostomy Hbo [address] [place] [address] Referral ID Status Reason Start Date Expiration Date Visits Requested Visits Authorized [id number] Pending Review Specialty Services Required 04/15/2024 04/15/2025 1 1 [facility] for referral (narrative)No reason for referral information availableWKindred Hospital [facility] Work Phone: Reason for visit Narrative* Service Level Authorization (Routine) - Closed Specialty Diagnoses / Procedures Referred By Daisy paredes Referred To Contact Physical Medicine & Rehab/PM&R Diagnoses Paraplegia (HCC) Reflex neurogenic bladder Procedures CYSTOMETROGRAM W/COUNCILMAN BLADDER IRRIGATION, SIMPLE, LAVAGE &/OR INSTILLATION COMPLEX UROFLOWMETRY ELECTROMYOGRAPHY STUDIES, ANAL/URETHRAL SPHINCTER, OTHER THAN NEEDLE, ANY TECHNIQUE VOIDING PRESSURE STUDIES; INTRA-ABDOMINAL VOIDING PRESSURE Faisal Simeon DO [address] [place] [address] Phone: tel: fax: [facility] PM[facility]R [address] [place] [address] Phone: tel: Referral ID Status Reason Start Date Expiration Date V isits Requested Visits Authorized [id number] Closed Consultation -[facility] 06/13/2024 06/13/[address] [facility] for visit Narrative* MRI/CT (Routine) - [...] 300 Kristine Howell APRN [address] [place] [address] Phone: tel: fax: Radiology [address] [place] [address] Phone: tel: Referral ID Status Reason Start Date Expiration Date V isits Requested Visits Authorized [id number] Authorized 11/14/2024 01/13/2025 3 3 [facility] Summary Purpose Family History No Family [...] FoundDocuments on File Type Date Recorded Patient Shoe Turner Expl anation ACP-Advance Directive ACP-Power of Jute Bag Sewer Latest Code Status on File Code Status Date Activated Date Inactivated Comments Full Code 10/24/2020 7:42 PM Full Code 01/05/2017 7:24 PM 01/06/2017 9:11 PM Documents on File Type Date Recorded Patient Shoe Turner Expl anation Advance Directive(s) 01/04/2022 9:24 PM [...] mellitus without complication (H[place]) [place] [address] [place] [address] [facility] [address] [place] [address] Scheduling Instructions [facility] - [facility] [address] [place], [place] [address] Specialty Diagnoses / Procedures Referred By Contact Referred To Contact Physical Medicine & Rehab/PM&R Diagnoses Paraplegia (HCC) History of lumbar fusion Vaishali Pierre, DO [address] [place] [address] [facility] [address] [place] [address] Referral ID Status Reason Start Date Expiration Date V isits Requested Visits Authorized [id number] Authorized 02/10/2024 02/09/2025 1 1 Scheduling Instructions [...] fusion Procedures MR L-SPINE W/+W/[place] [address] [facility] MRI [address] [place] [address] Referral ID Status Reason Start Date Expiration Date V isits Requested Visits Authorized [id number] Authorized 02/10/2024 02/09/2025 1 1 Specialty Diagnoses / Procedures Referred By Daisy paredes Referred To Contact Radiology Diagnoses Paraplegia (HCC) History of lumbar fusion Procedures XR L-SPINE AP+LATERAL 2-3 [place] [address] [facility] DIAGNOSTIC RADIOLOGY [address] [place] [address] Referral ID Status Reason Start Date Expiration Date Visits Re quested Visits Authorized [id number] Closed 02/10/2024 02/09/2025 1 1 Referral ID Status Reason Start Date Expiration Date Visits Re quested Visits Authorized [id number] Closed 02/10/2024 02/09/2025 1 1 Specialty Diagnoses / Procedures Referred By Daisy paredes Referred To Contact Diagnoses Paraplegia (HCC) History of lumbar fusion Sacral insufficiency fracture, initial encounter Vaishali Pierre DO [address] [place] [address] Referral ID Status Reason Start Date Expiration Date Visits Requested Visits Authorized [id number] Authorized Consultatio n-[facility] 04/06/2024 04/06/2025 1 1 Scheduling Instructions You have been referred to the Spine Center. You will be contacted to schedule your appointment within 24 - 48 hours. If you are not contacted within this time frame please call the Spine Center at [phone] to schedule your appointment. Question Answer Reason [...] 2 OR 3 VIEWS Otis Mejia MD [address] [place] [address] [facility] DIAGNOSTIC RADIOLOGY [address] [place] [address] [place] [id number] Referral ID Status Reason Start Date Expiration Date Visits Re quested Visits Authorized [id number] Closed 05/11/2024 05/11/2025 1 1 Specialty Diagnoses / Procedures Referred By Contac t Referred To Contact Radiology Diagnoses Sacral insufficiency fracture, initial encounter Procedures XR SACRUM-COCCYX 3 VIEWS Berna Johnson PA-C [address] [place] [address] [place] [address] [facility] DIAGNOSTIC RADIOLOGY [address] [place] [address] [place] [id number] Referral ID Status Reason Start Date Expiration Date Visits Re quested Visits Authorized [id number] Closed 05/10/2024 05/10/2025 1 1 Specialty Diagnoses / Procedures Referred By Contac t Referred To Contact Radiology Diagnoses Sacral insufficiency fracture, initial encounter Procedures MR C-SPINE W/O Otis Mejia MD [address] [place] [address] [facility] [address] [place] [address] Referral ID Status Reason Start Date Expiration Date V isits Requested Visits Authorized [id number] Authorized 05/11/2024 05/11/2025 1 1 Specialty Diagnoses / Procedures Referred By Contac t Referred To Contact Radiology Diagnoses Sacral insufficiency fracture, initial encounter Procedures MR T-SPINE W/O Otis Mejia MD [address] [place] [address] S MRI [address] [place] [address] Referral ID Status Reason Start Date Expiration Date V isits Requested Visits Authorized [id number] Authorized 05/11/2024 05/11/2025 1 1 Specialty Diagnoses / Procedures Referred By Contac t Referred To Contact Radiology Diagnoses Sacral insufficiency fracture, initial encounter Procedures BD BONE DENSITY SURVEY Otis Mejia MD [address] [place] [address] [facility] BONE DENSITY [address] [place] [address] Referral ID Status Reason Start Date Expiration Date V isits Requested Visits Authorized [id number] Authorized 05/11/2024 05/11/2025 1 1 Specialty Diagnoses / Procedures Referred By Contac t Referred To Contact Physical Medicine & Rehab/PM&R Diagnoses Paraplegia (HCC) Reflex neurogenic bladder Faisal Simeon, [address] [place] [address] [facility] [address] [place] [address] Referral ID Status Reason Start Date Expiration Date Visits Requested Visits Authorized [id number] [facility]ending [facility] 06/13/2025 3 3 Scheduling Instructions Please schedule this appointment through [facility] or call the phone number listed above. [...] Paraplegia (HCC) Faisal Simeon DO [address] [place] [address] Referral ID Status Reason Start Date Expiration Date Visits Requested Visits Authorized [id number] Authorized Consultatio [facility] 06/13/2024 06/13/2025 3 3 Scheduling Instructions Please call to schedule an appointment. If you are unable to keep your appointment, please call [phone] at least 24 hours in advance. Question Answer Reason for request: Basic Needs (i.e. medical equipment, housing, food, rent, utilities, transpo), Benefits Applications (i.e. social security, job and family services), Vocational (i.e. [place] rehab services [employer], volunteer work), Other Support Services (i.e. medication programs, home accessibility, legal assistance) Other support services requested: Home accessibility Referral ID Status Reason Start Date Expiration Date Visits Re quested Visits Authorized [id number] Closed 05/11/2024 05/11/2025 1 1 Referral ID Status Reason Start Date Expiration Date Visits Re quested Visits Authorized [id number] Closed 05/11/2024 05/11/2025 1 1 Discharge Instructions [...] most local grocery stores, pharmacies, and chain super-stores. ? If you have any questions about your diet or nutrition, call the hospital and ask for the dietitian. * Discharge Instr - ADELINE* Opal Vigil MD - 10/24/2020 1:33 PM EST Continuity of Care Form Patient Name: Anmol Franco Gail : 1960 Admit date: 10/24/2020 Discharge date: [...] Contact Information Primary Emergency Contact: Leyla Reynolds [facility] Relation: Spouse Car Tester needed? No Secondary Emergency Contact: Ronald Reynolds [...] MENTAL STATUS:} IV Access: { ADELINE IV ACCESS:375216826} Nursing Mobility/ADLs: Walking {CHP DME ADLs:074323255} Transfer {CHP DME ADLs:581095654} Bathing {CHP DME ADLs:813028824} Dressing {CHP DME ADLs:087704424} Toileting {CHP DME ADLs:146617093} Feeding {CHP DME ADLs:757142625} Chief Green Officer {CHP DME ADLs:587558894} Med Delivery { ADELINE MED Delivery:022100404} Wound Care Documentation and Therapy: Elimination: Continence: Bowel: {YES / NO:} Bladder: {YES / NO:} Urinary Catheter: {Urinary Catheter:298656309} Colostomy/Ileostomy/Ileal Conduit: {YES / NO:} Date of Last BM: Intake/Output Summary (Last 24 hours) at 10/24/2020 1333 Last data filed at 10/24/2020 1139 Gross per 24 hour Intake 1000 ml Output 325 ml Net 675 ml No intake/output data recorded. Safety Concerns: { ADELINE Safety Concerns:[id number]} Impairments/Disabilities: { ADELINE Impairments/Disabilities:897621847} Nutrition Therapy: Current Nutrition Therapy: { ADELINE Diet List:059464906} Routes of Feeding: {CHP DME Other Feedings:852144730} Liquids: {General Service Technician liquid thickness:75356} Daily Fluid Restriction: {CHP DME Yes amt example:600922781} Last Modified Barium Swallow with Video (Video Swallowing Test): {Done Not Done Date:} Treatments at the Time of Hospital Discharge: Respiratory Treatments: Oxygen Therapy: {Therapy; copd oxygen:47127} Ventilator: {[facility] Vent List:698324191} Rehab Therapies: {THERAPEUTIC INTERVENTION:8970367530} Weight Bearing Status/Restrictions: { CC Weight Bearin} Other Medical Equipment (for information only, NOT a DME order): {EQUIPMENT:531506932} Other Treatments: Patient's personal belongings (please select all that are sent with patient): {CHP DME Belongings:202266162} RN SIGNATURE: {Esignature:604308025} CASE MANAGEMENT/SOCIAL WORK SECTION Inpatient Status Date: Readmission Risk Assessment Score: Readmission Risk Risk of Unplanned Readmission: 0 Discharging to Facility/ Agency Name: Address: Phone: Fax: Dialysis Facility (if applicable) Name: Address: Dialysis Schedule: Phone: Fax: Pediatric Physical Therapy Assistant/Copra Processor signature: {Esignature:489700030} PHYSICIAN SECTION Prognosis: {Prognosis:0949766035} Condition at Discharge: { Patient Condition:440769414} Rehab Potential (if transferring to Rehab): {Prognosis:7638577459} Recommended Labs or Other Treatments After Discharge: Physician Certification: I certify the above information and transfer of Anmol Franco Gail is necessaryfor the continuing treatment of the diagnosis listed and that he requires {Admit to Appropriate Level of Care:25459} for {GREATER/LESS:835321395} 30 days. Update Admission H&P: {CHP DME Changes in HandP:262563328} PHYSICIAN SIGNATURE: * Additional Instructions* Opal Vigil MD - 10/24/2020 Every day change the dressing frequently to keep clean and dry 4 x 4 gauze pads paper tape. May shower 3 days. Avoid soaking or soap for 1 week. Recheck 1 month [id number]. E prescribed [place] 5/325 #28 done documented in this encounter [...] Full Code PT/OT Eval * Ye Prado, PATTERN MARKING SUPERVISOR - 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 - 10/25/2020 9:43 AM EST Patient is [...] region, with neurogenic claudication [place] [address] DISCHARGE SUMMARY PATIENT NAME: ANMOL REYNOLDS : 1960 MED REC NO: [id number] ROOM: [facility] ACCOUNT NO: [id number] ADMIT DATE: 10/24/2020 PROVIDER: Opal Vigil MD DISCH DATE: HOSPITAL COURSE: Left and bilateral L2-L3, L3-L4, L4-L5 micro decompressions. The patient tolerated the procedure well. Wound drain in place, removal the next day. Once ambulatory with bladder control, plan discharge in good condition. DISCHARGE DIAGNOSIS: L2, L3, L4, L5 canal stenosis with neurogenic claudication, improved. DISCHARGE MEDICATION: [place] 5/325, #28. DISCHARGE INSTRUCTIONS: The patient has been instructed to keep the wound clean and dry about three days, avoiding soaking or soap for a week, recheck in a month. If he has any questions or problems, please contact the office. OPAL VIGIL MD [id number] Doc#: [id number] CC: Chief Complaint and Reason for Visit Chief Complaint LABWORK Chief Complaint LABWORK SKILLED NURSING LAB WORK Chief Complaint LABWORK SKILLED NURSING LAB WORK SKILLED NURSING LAB WORK Chief Complaint SKILLED NURSING LAB WOR K SKILLED NURSING LAB WORK SKILLED NURSING LAB WORK LABWORK Chief Complaint LABWORK SKILLED NURSING LAB WORK LABWORK Chief Complaint LABWORK SKILLED NURSING LAB WORK LABWORK SKILLED NURSING LAB WORK Chief Complaint Admit Date SKILLED NURSING LAB WORK September 20 5:00am SKILLED NURSING LAB WORK September 29 4:00am SKILLED NURSING LAB WORK October 03 5:00am LABWORK October 10, 2024 5: 00am SKILLED NURSING LAB WORK November 29 4:45am LABWORK November 30, 2024 5:00am Chief Complaint Admit Date SKILLED NURSING LAB WORK September 20 5:00am SKILLED NURSING LAB WORK September 29 4:00am SKILLED NURSING LAB WORK October 03 5:00am LABWORK October 10, 2024 5: 00am SKILLED NURSING LAB WORK November 29 4:45am LABWORK November 30, 2024 5:00am SKILLED NURSING LAB WORK December 07, 2024 5: 00am Chief Complaint Admit Date SKILLED NURSING LAB WORK November 29 4:45am LABWORK November 30, 2024 5:00am SKILLED NURSING LAB WORK December 07, 2024 5: 00am SKILLED NURSING LAB WORK January 09, 2025 5: 00am LABWORK February 15, 2025 4:20a m LABOWRK March 01, 2025 5:00a m Chief Complaint Admit Date SKILLED NURSING LAB WORK November 29 4:45am LABWORK November 30, 2024 5:00am SKILLED NURSING LAB WORK December 07, 2024 5: 00am SKILLED NURSING LAB WORK January 09, 2025 5: 00am LABWORK February 15, 2025 4:20a m Chief Complaint Admit Date SKILLED NURSING LAB WORK April 16, 2025 11 :00pm SKILLED NURSING LAB WORK April 18, 2025 5: 34am LABWORK May 01, 2025 5:00 am LABWORK May 03, 2025 5:00 am SKILLED NURSING LAB WORK May 09, 2025 5 :00am LABWORK May 11, 2025 5:0 0am SKILLED NURSING LAB WORK May 15, 2025 4:00am SKILLED NURSING LAB WORK May 22, 2025 4:00am SKILLED NURSING LAB WORK May 25, 2025 5:00am LABWORK [...] section and content) DATE CREATED AUTHOR 03/30/2018 [facility] Healthcare DATE CREATED AUTHOR AUTHOR'S ORGANIZ ATION 03/31/2018 [facility] DATE CREATED AUTHOR AUTHOR'S ORGANIZ ATION 06/22/2018 [facility] DATE CREATED AUTHOR AUTHOR'S ORGANIZ ATION 07/08/2018 [facility] DATE CREATED AUTHOR AUTHOR'S ORGANIZ ATION 10/20/2020 [facility] Center DATE CREATED AUTHOR AUTHOR'S ORGANIZ ATION 10/27/2020 [facility] DATE CREATED AUTHOR AUTHOR'S ORGANIZ ATION 05/24/2021 [facility] DATE CREATED AUTHOR AUTHOR'S ORGANIZ ATION 10/16/2021 [facility] ical Center DATE CREATED AUTHOR AUTHOR'S ORGANIZ ATION 04/25/2022 [facility] DATE CREATED AUTHOR AUTHOR'S ORGANIZ ATION 11/10/2024 [facility] DATE CREATED AUTHOR AUTHOR'S ORGANIZ ATION 03/22/2025 [facility] DATE CREATED AUTHOR AUTHOR'S ORGANIZ ATION 03/27/2025 [facility] Center DATE CREATED AUTHOR AUTHOR'S ORGANIZ ATION 06/04/2025 [facility] DATE CREATED AUTHOR AUTHOR'S ORGANIZ ATION 08/11/2025 [facility] Reason for Visit (unrecogniz ed section and content) Status Reason Specialty Diagnoses / Procedures Referre d By Contact Referred To Contact Diagnoses L2-3-4-5 STENOSIS Procedures ND LAMINECTOMY,>2 SGMT,LUMBAR LEFT BILATERAL L2-3-4-5 DECOMPRESSION. 2.5 HOURS, C-ARM, POWER RONGEUR. 1ST CASE (PAT AT [facility]) Opal Vigil MD [address] [address] [facility] Reason Comments Urinary Retention Reason Onset Date Comments new patient appointment 08/06/2023 Reason Onset Date Comments Referral 09/04/2023 Reason Onset Date Comments Referral 08/19/2023 Confirm Receipt of Referral for DATA MANAGEMENT CONSULTANT Appt Scheduling Reason Comments Pain Pt is [...] MR L-SPINE W/+W/O Vaishali Pierre, DO [address] [place] [address] S MRI [address] [place] [address] Referral ID Status Reason Start Date Expiration Date Visits Re quested Visits Authorized [id number] Closed 02/10/2024 02/09/2025 1 1 Reason Comments Leg Pain Specialty Diagnoses / Procedures Referred By Daisy paredes Referred To Contact Diagnoses Urinary obstruction Septic shock (HCC) Procedures - Lauryn Hooker MD [address] [address] [facility] [address] [place] [address] Referral ID Status Reason Start Date Expiration Date Visits Re quested Visits Authorized [id number] 1 1 Reason Onset Date Comments Surgery [...] Grimm MD [address] [place] [address] [address] [place] [address] Referral ID Status Reason Start Date Expiration Date Visits Re quested Visits Authorized [id number] 1 1 Reason Onset Date Comments Update 05/10/2024 Specialty Diagnoses / Procedures Referred By Daisy paredes Referred To Contact Radiology Diagnoses Sacral insufficiency fracture, initial encounter Procedures XR SACRUM-COCCYX 3 VIEWS Berna Johnsno PA-C [address] [place] [address] [place] [address] [facility] DIAGNOSTIC [facility]IOLOGY [address] [place] [address] [place] [address] Referral ID Status Reason Start Date Expiration Date Visits Re quested Visits Authorized [id number] Closed 05/10/2024 05/10/2025 1 1 Reason Onset Date Comments Labs Only 05/13/2024 Reason Comments Numbness/tingling New patient, to establish relationship Specialty Diagnoses / Procedures Referred By Daisy paredes Referred To Contact Diagnoses Paraplegia (HCC) History of lumbar fusion Sacral insufficiency fracture, initial encounter Juan Vaishali [place] [id number] Referral ID Status Reason Start Date Expiration Date V isits Requested Visits Authorized [id number] Closed Consultation -[facility] 04/06/2024 04/06/2025 1 1 Reason Comments Other Abnormal labs, blood cultures has been done to pt in facility, gram + cocci. Had back sx 2 yrs ago that resulted to paraplegia, pt is paralyze from waist down. Afebrile, aox4 Specialty Diagnoses / Procedures Referred By Daisy paredes Referred To Contact Diagnoses Positive blood cultures Procedures - Heydi Concepcion MD [address] [place] [address] [facility] Emergency Dept [address] [place] [phone] Referral ID Status Reason Start Date Expiration Date Visits Re quested Visits Authorized [id number] 1 1 Reason Comments New Patient Leg Pain Pt states having jeri n on his paralyzed legs, pain rate 8/10. Reason Comments New patient, to establish relationship Specialty Diagnoses / Procedures Referred By Contact Referred To Contact Physical Medicine & Rehab/PM&R Diagnoses Paraplegia (HCC) History of lumbar fusion Vaishali Pierre DO [address] [place] [address] [facility] [address] [place] [address] Referral ID Status Reason Start Date Expiration Date V isits Requested Visits Authorized [id number] Pending Review 02/10/2024 02/09/2025 1 1 Reason Onset Date Comments Reschedule 06/15/2024 Specialty Diagnoses / Procedures Referred By Contac t Referred To Contact Radiology Diagnoses Sacral insufficiency fracture, initial encounter Procedures MR T-SPINE W/O Otis Mejia MD [address] [place] [address] [facility] MRI [address] [place] [address] Referral ID Status Reason Start Date Expiration Date Visits Re quested Visits Authorized [id number] Closed 05/11/2024 05/11/2025 1 1 Reason Comments Evaluation Follow up Reason Comments Osteoporosis Reason Onset Date Comments Appointment 10/25/2024 Reason Onset Date Comments Hospital F/U 02/19/2025 Reason Onset Date Comments Other 03/07/2025 Reason Comments Evaluation Reason Comments Nephrolithiasis Reason Comments Wound Check Sacrum / left ischiu m Reason Comments Wound Infection Per EMS pt was sent here from the [place] for wound infections. Pt has two wound on his sacrum - one at the top of sacrum and one at the bottom of the buttocks. Denies any fever/ CP/FEVER/ SOB. Pt is paralysis. Specialty Diagnoses / Procedures Referred By Contac t Referred To Contact Diagnoses Other acute osteomyelitis, other site (HCC) Procedures m86.18 Georgtete Bueno MD [address] [place] [address] Phone: tel: fax: [facility] Medical Unit [address] [place] [phone] Phone: tel: Referral ID Status Reason Start Date Expiration Date Visits Re quested Visits Authorized [id number] 1 1 Reason Onset Date Comments Labs [...] or prosecute any alcohol or drug abuse patient.[facility] the event this information is protected by the Federal Confidentiality of Alcohol and Drug Abuse Patient Records regulations: The Federal rules restrict any use of the information to criminally investigate or prosecute any alcohol or drug abuse patient.[facility] Hospital[facility] the event this information is protected by the Federal Confidentiality of Alcohol and Drug Abuse Patient Records regulations: The Federal rules restrict any use of the information to criminally investigate or prosecute any alcohol or drug abuse patient.[facility] the event this information is protected by the Federal Confidentiality of Alcohol and Drug Abuse Patient Records regulations: The Federal rules restrict any use of the information to criminally investigate or prosecute any alcohol or drug abuse patient.[facility] Hospital[facility] the event this information is protected by the Federal Confidentiality of Alcohol and Drug Abuse Patient Records regulations: The Federal rules restrict any use of the information to criminally investigate or prosecute any alcohol or drug abuse patient.[facility] Hospital[facility] the event this information is protected by the Federal Confidentiality of Alcohol and Drug Abuse Patient Records regulations: The Federal rules restrict any use of the information to criminally investigate or prosecute any alcohol or drug abuse patient.[facility] Hospital[facility] the event this information is protected by the Federal Confidentiality of Alcohol and Drug Abuse Patient Records regulations: The Federal rules restrict any use of the information to criminally investigate or prosecute any alcohol or drug abuse patient.[facility] Hospital[facility] the event this information is protected by the Federal Confidentiality of Alcohol and Drug Abuse Patient Records regulations: The Federal rules restrict any use of the information to criminally investigate or prosecute any alcohol or drug abuse patient.[facility] Teams (unrecognized sec tion and content) Advanced Manufacturing Engineer Relationship Specialty Start Date End Date Ambrosio Monroy DO [address] [place] [address] PCP - General Family Practice 05/21/17 Penny Cameron MD [address] [address] Consulting General Surgery 01/17/21 Gayle Scott MD [address] [place] [address] Consulting Infectious Diseases 12/03/21 Ambrosio Monroy DO [address] [place] [address] Home Care Physician Internal Medicine 12/03/21 Advanced Manufacturing Engineer Relationship Specialty Start Date End Date Ambrosio Monroy DO [address] [place] [address] PCP - General Family Practice 05/21/17 Penny Cameron MD [address] [address] Consulting General Surgery 01/17/21 Gayle Scott MD [address] [place] [address] Consulting Infectious Diseases 12/03/21 Ambrosio Monroy DO [address] [place] [address] Home Care Physician Internal Medicine 12/03/21 Advanced Manufacturing Engineer Relationship Specialty Start Date End Date Ambrosio Monroy DO [address] [place] [address] PCP - General Family Practice 05/21/17 Penny Cameron MD [address] [address] Consulting General Surgery 01/17/21 Gayle Scott MD [address] [place] [phone] Consulting Infectious Diseases 12/03/21 Ambrosio Monroy DO [address] [place] [address] Home Care Physician Internal Medicine 12/03/21 Team Status: Active Member Role Status Dates Dr. Ambrosio Monroy DO Primary Care Provider Active Team Status: Inactive Member Role Status Dates Dr. Ambrosio Monroy DO Primary Care Provider Active Tab MURO Attending Provider Active Team Status: Active Member Role Status Dates Dr. Ambrosio Monroy DO Primary Care Provider Active Tab MURO Attending Provider Active Advanced Manufacturing Engineer Relationship Specialty Start Date End Date Ambrosio Monroy DO [address] [place] [address] PCP - General 06/07/17 Team Status: Inactive Member Role Status Dates Dr. Ambrosio Monroy DO Primary Care Provider Active Tab MURO Attending Provider, Referring Provi krish Active Advanced Manufacturing Engineer Relationship Specialty Start Date End Date Ambrosio Monroy DO [address] [place] [address] PCP - General 06/07/17 Advanced Manufacturing Engineer Relationship Specialty Start Date End Date Ambrosio Monroy DO [address] [place] [address] PCP - General 06/07/17 Advanced Manufacturing Engineer Relationship Specialty Start Date End Date Ambrosio Monroy DO [address] [place] [address] PCP - General 06/07/17 Advanced Manufacturing Engineer Relationship Specialty Start Date End Date Ambrosio Monroy, DO [address] [place] [address] PCP - General 06/07/17 Advanced Manufacturing Engineer Relationship Specialty Start Date End Date Elysiajacque VaishaliDO [address] [place] [address] [phone] Physician Physical Medicine & Rehab/PM&R 03/05/24 Advanced Manufacturing Engineer Relationship Specialty Start Date End Date Ambrosio Monroy, DO [address] [facility] [address] [place] [address] PCP - General 06/07/17 Advanced Manufacturing Engineer Relationship Specialty Start Date End Date Ambrosio Monroy, DO [address] [facility] [address] [place] [address] PCP - General 06/07/17 Advanced Manufacturing Engineer Relationship Specialty Start Date End Date Ambrosio Monroy, DO [address] [place] [address] PCP - General 06/07/17 Advanced Manufacturing Engineer Relationship Specialty Start Date End Date Vaishali Pierre, [address] [place] [address] [phone] Physician Physical Medicine & Rehab/PM&R 03/05/24 Advanced Manufacturing Engineer Relationship Specialty Start Date End Date Ambrosio Monroy DO [address] [place] [address] PCP - General 06/07/17 Dashawn Grimm MD [address] [address] Surgeon Urology 05/05/24 Advanced Manufacturing Engineer Relationship Specialty Start Date End Date Ambrosio Monroy DO [facility] [address] [place] [address] PCP - General 06/07/17 Dashawn Grimm MD [address] [address] Surgeon Urology 05/05/24 Advanced Manufacturing Engineer Relationship Specialty Start Date End Date Vaishali Pierre DO [address] [place] [address] Physician Physical Medicine & Rehab/PM&R 03/05/24 Advanced Manufacturing Engineer Relationship Specialty Start Date End Date Vaishali Pierre DO [address] [place] [address] Physician Physical Medicine & Rehab/PM&R 03/05/24 Advanced Manufacturing Engineer Relationship Specialty Start Date End Date Ambrosio Monroy DO [facility] [address] [place] [address] PCP - General 06/07/17 Dashawn Grimm MD [address] [address] Surgeon Urology 05/05/24 Advanced Manufacturing Engineer Relationship Specialty Start Date End Date Vaishali Pierre DO [address] [place] [address] Physician Physical Medicine & Rehab/PM&R 03/05/24 Advanced Manufacturing Engineer Relationship Specialty Start Date End Date Ambrosio Monroy DO [address] [facility] [address] [place] [address] PCP - General 06/07/17 05/18/24 Tab Dupont [address] [place] [phone] PCP - General Internal Medicine 05/19/24 Dashawn Girmm MD [address] [place] [address] Surgeon Urology 05/05/24 Advanced Manufacturing Engineer Relationship Specialty Start Date End Date Ambrosio Monroy DO [address] [facility] [address] [place] [address] PCP - General 06/07/17 05/18/24 Advanced Manufacturing Engineer Relationship Specialty Start Date End Date Vaishali Pierre DO [address] [place] [address] Physician Physical Medicine & Rehab/PM&R 03/05/24 Otis Mejia MD [address] [place] [address] Physician Orthopaedic Surgery 06/11/24 Advanced Manufacturing Engineer Relationship Specialty Start Date End Date Vaishali Pierre DO [address] [place] [address] Physician Physical Medicine & Rehab/PM&R 03/05/24 Otis Mejia MD [address] [place] [address] Physician Orthopaedic Surgery 06/11/24 Advanced Manufacturing Engineer Relationship Specialty Start Date End Date Tab Dupont [address] [place] [phone] PCP - General Internal Medicine 05/19/24 Dashawn Grimm MD [address] [place] [address] Surgeon Urology 05/05/24 Advanced Manufacturing Engineer Relationship Specialty Start Date End Date Vaishali Pierre DO [address] [place] [address] Physician Physical Medicine & Rehab/PM&R 03/05/24 Otis Mejia MD [address] [place] [address] Physician Orthopaedic Surgery 06/11/24 Advanced Manufacturing Engineer Relationship Specialty Start Date End Date Vaishali Pierre DO [address] [place] [address] Physician Physical Medicine & Rehab/PM&R 03/05/24 Otis Mejia MD [address] [place] [address] Physician Orthopaedic Surgery 06/11/24 Advanced Manufacturing Engineer Relationship Specialty Start Date End Date Vaishali Pierre DO [address] [place] [address] Physician Physical Medicine & Rehab/PM&R 03/05/24 Otis Mejia MD [address] [place] [address] Physician Orthopaedic Surgery 06/11/24 Advanced Manufacturing Engineer Relationship Specialty Start Date End Date Vaishali Pierre DO [address] [place] [address] Physician Physical Medicine & Rehab/PM&R 03/05/24 Otis Mejia MD [address] [place] [address] Physician Orthopaedic Surgery 06/11/24 Advanced Manufacturing Engineer Relationship Specialty Start Date End Date Vaishali Pierre DO [address] [place] [address] Physician Physical Medicine & Rehab/PM&R 03/05/24 Otis Mejia MD [address] [place] [address] Physician Orthopaedic Surgery 06/11/24 Advanced Manufacturing Engineer Relationship Specialty Start Date End Date Vaishali Pierre DO [address] [place] [address] Physician Physical Medicine & Rehab/PM&R 03/05/24 Otis Mejia MD [address] [place] [address] Physician Orthopaedic Surgery 06/11/24 Advanced Manufacturing Engineer Relationship Specialty Start Date End Date Vaishali Pierre DO [address] [place] [address] Physician Physical Medicine & Rehab/PM&R 03/05/24 Otis Mejia MD [address] [place] [address] Physician Orthopaedic Surgery 06/11/24 Giuliano Shultz DO [address] [place] [address] Physician Rheumatology 09/10/24 [place] [address] [place] [address] Physician Physical Medicine & Rehab/PM&R 09/30/24 Advanced Manufacturing Engineer Relationship Specialty Start Date End Date Tab Dupont [address] [place] [phone] PCP - General Internal Medicine 05/19/24 Dashanw Grimm MD [address] [address] Surgeon Urology 05/05/24 Team Status: Inactive Member [...] December 07, 2024 End: December 07, 2024 Advanced Manufacturing Engineer Relationship Specialty Start Date End Date Penny Cameron MD [address] [facility] [address] [place] [address] [facility] General Surgery 01/17/21 Gayle Scott MD [address] [phone] Consulting Infectious Diseases 12/03/21 Ambrosio Monroy MD [address] [facility] [address] [place], [place] [address] Home Care Provider Internal Medicine 12/03/21 Advanced Manufacturing Engineer Relationship Specialty Start Date End Date Tab Dupont [address] [place] [phone] PCP - General Internal Medicine 05/19/24 Dashawn Grimm MD [address] [place] [address] Surgeon Urology 05/05/24 Advanced Manufacturing Engineer Relationship Specialty Start Date End Date Penny Cameron MD [address] [address] Consulting General Surgery 01/17/21 Gayle Scott MD [address] [phone] Consulting Infectious Diseases 12/03/21 Ambrosio Monroy MD [facility] [address] [place], [place] [address] Home Care Provider Internal Medicine 12/03/21 Advanced Manufacturing Engineer Relationship Specialty Start Date End Date Penny Cameron MD [address] [address] Consulting General Surgery 01/17/21 Gayle Scott MD [address] [facility] [address] [place] [phone] Consulting Infectious Diseases 12/03/21 Ambrosio Monroy MD [address] [place] [id number] Home Care Provider Internal Medicine 12/03/21 Advanced Manufacturing Engineer Relationship Specialty Start Date End Date Tab Dupont [address] [place] [phone] PCP - General Internal Medicine 05/19/24 Dashawn Grimm MD [address] [address] Surgeon Urology 05/05/24 Advanced Manufacturing Engineer Relationship Specialty Start Date End Date Tab Dupont [address] [place] [phone] PCP - General Internal Medicine 05/19/24 Dashawn Grimm MD [address] [address] Surgeon Urology 05/05/24 Advanced Manufacturing Engineer Relationship Specialty Start Date End Date Tab Dupont [address] [place] [phone] PCP - General Internal Medicine 05/19/24 Dashawn Grimm MD [address] [address] Surgeon Urology 05/05/24 Advanced Manufacturing Engineer Relationship Specialty Start Date End Date Vaishali Pierre DO [address] [place] [address] Physician Physical Medicine & Rehab/PM&R 03/05/24 Otis Mejia MD [address] [place] [address] Physician Orthopaedic Surgery 06/11/24 Giuliano Shultz DO [address] [place] [address] Physician Rheumatology 09/10/24 Faisal Simeon DO [address] [place] [address] Physician Physical Medicine & Rehab/PM&R 09/30/24 Team [...] March 01, 2025 End: March 01, 2025 Advanced Manufacturing Engineer Relationship Specialty Start Date End Date Tab Dupont [address] [place] [phone] PCP - General Internal Medicine 05/19/24 Dashawn Grimm MD 201 [facility] 3 [place] [address] Surgeon Urology 05/05/24 Team Status: Active Member Role Status Dates Dr. Ambrosio Monroy DO Primary Care Provider Active Start: March 01, 2025 Peter Katsaros OLS Attending Provider Active Sta rt: March 01, 2025 Advanced Manufacturing Engineer Relationship Specialty Start Date End Date Tab Dupont [address] [place] [phone] PCP - General Internal Medicine 05/19/24 Dashawn Grimm MD [address] [place] [address] [address] [place] [address] Surgeon Urology 05/05/24 Advanced Manufacturing Engineer Relationship Specialty Start Date End Date Penny Cameron MD [address] [address] Consulting General Surgery 01/17/21 Gayle Scott MD [address] [place] [phone] Consulting Infectious Diseases 12/03/21 Ambrosio Monroy MD [address] [facility] [address] [place] [address] Home Care Provider Internal Medicine 12/03/21 Advanced Manufacturing Engineer Relationship Specialty Start Date End Date Tab Dupont MD [address] [facility] 8 [place] [address] PCP - General Internal Medicine 03/20/25 Penny Cameron MD [address] [address] Consulting General Surgery 01/17/21 Gayle Scott MD [address] [place] [phone] Consulting Infectious Diseases 12/03/21 Ambrosio Monroy MD [address] [address] Home Care Provider Internal Medicine 12/03/21 Advanced Manufacturing Engineer Relationship Specialty Start Date End Date Kiah Tab [address] [place] [phone] PCP - General Internal Medicine 05/19/24 Dashawn Grimm MD 201 [facility] 3 [place] [address] Surgeon Urology 05/05/24 Advanced Manufacturing Engineer Relationship Specialty Start Date End Date Tab Dupont [address] [place] [phone] PCP - General Internal Medicine 05/19/24 Dashawn Grimm MD [address] [facility] 3 [place] [address] Surgeon Urology 05/05/24 Team Status: Active Member [...] Status: Active Member Role/Relationship Status Dates Dr. Abmrosio Monroy DO Primary care physician Active Start: [...] physician Active Start: May 15, 2025 Tab MURO Attending physician Active St art: May 15, [...] physician Active St art: July 31, 2025 Advanced Manufacturing Engineer Relationship Specialty Start Date End Date Vaishali Pierre DO [address] [place], [place] [phone] Physician Physical Medicine & Rehab/PM&R 03/05/24 Otis Mejia MD [address] [place] [address] Physician Orthopaedic Surgery 06/11/24 Giuliano Shultz DO [address] [place] [address] Physician Rheumatology 09/10/24 Faisal Simeon DO [address] [place], [place] [phone] Physician Physical Medicine & Rehab/PM&R 09/30/24 Goals [...] refused) 09 (Not Given - Provider: Faby Maxwell, LIBRADO - Reason: Patient/family refused) enoxaparin (Lovenox) syringe [...] LIBRADO) 0828 (Given - Provider: Allie Griffin, RN) 0905 (Given - Provider: Faby Maxwell, [...] RN)2306 (New Bag - Provider: Marino Trevizo, RN) 0106 (Stopped - Provider: Marino Trevizo RN) insulin [...] Meropenem Med-Surg/Crit Care Init Dosing HARINDER 8, Knitter Mechanic cl >=50, 3h Mini-Bag Plus bag, Suspected [...] Erika Li RN)0336 (Stopped - Provider: Erika Li, LIBRADO) mirtazapine (Remeron) tablet 7.5 mg 7.5 mg, Oral, Nightly, First dose on Fabiola 04/14/24 at 2245 2106 (Given - Provider: Marino Trevizo RN) 2027 (Given - Provider: Erika Li, RN) polyethylene glycol (PEG) 3350 (Miralax) packet 17 g 17 g, Oral, Daily, First dose on Thu04/15/24 at 0900 0900 (Not Given - Provider: Allie Griffin RN - Reason: Patient/family refused) 0900 (Not Given - Provider: Allie Griffin RN - Reason: Patient/family refused) 0904 (Not Given - Provider: Faby Maxwell, LIBRADO - Reason: Patient/family refused) potassium chloride CR [...] Griffin RN)2027 (Given - Provider: Erika Li, RN) 0904 (Given - Provider: Faby Maxwell, RN)1300 (Given - Provider: Faby Maxwell, LIBRADO) sodium chloride 0.9% (NS) flush 10 mL 10 mL, IntraVENous, Every 12 hours scheduled (2 times per day), First dose on Thu04/14/24 at 2245 0834 (Given - Provider: Allie Griffin RN)2112 (Given - Provider: Marino Trevizo RN) 0921 (Given - Provider: Allie Griffin RN)2100 (Given - Provider: Erika Li, RN) 0905 (Given - Provider: Faby Maxwell, RN) tamsulosin (Flomax) 24 hr capsule 0.4 mg 0.4 mg, Oral, Daily, First dose on Thu04/15/24 at 0900, Do not crush, chew, or split. 0832 (Given - Provider: Allie Griffin, RN) 0828 (Given - Provider: Allie Griffin [...] sedation for opioid reversal - MUST notify online marketing director provider immediately after first dose, may give [...] 2,000 mg, IntraVENous, Administer over 30 Minutes, Validation Intern to O.R., On Thu05/05/24 at 1115, For [...] 1910 (Given - Provider: Carmel Merritt RN) 08 (Given - Provider: Bianca Rodgers RN) famotidine (Pepcid) tablet 20 mg (COMPLETED)(Linked Group 1) 20 mg, Oral, Once, On Fabiola 05/05/24 at 1115, For 1 dose, Preprocedure, IV or Oral 112 (Given - Provider: Karlee Bell RN) insulin [...] sedation for opioid reversal - MUST notify online marketing director provider immediately after first dose, may give [...] Provider: Dedrick Martin RN - Reason: Patient/family refused)2046 (Not Given - Provider: Aleksandra Pinon RN [...] sedation for opioid reversal - MUST notify online marketing director provider immediately after first dose, may give [...] sodium chloride 0.9 % 100 mL IVPB (Add-[place]) 3,000 mg, IntraVENous, at 200 mL/hr, Administer over 30 Minutes, Every 6 hours, First dose on Thu04/26/25 at 1230, ADD-[place] bag, Suspected Indication (Select all that apply): [...] at 0900 0808 (Given - Provider: Christel Brower, LIBRADO) insulin glargine (Lantus) injection 28 Units [...] Christel Brower RN)1244 (Given - Provider: Christel Brower, RN)1704 (Given - Provider: Christel Brower, RN) [...] 350-400 15 Units Above 400 18 Units 210 (Given - Provider: Valarie King RN) 2123 [...] Valarie King RN)0852 (Stopped - Provider: Christel Brower, LIBRADO) midodrine (Proamatine) tablet 10 mg 10 mg, Oral, 3 times daily, First dose on Thu04/22/25 at 0900 0807 (Given - Provider: Christel Brower RN)1304 (Given - Provider: Christel Brower, LIBRADO)2102 (Given - Provider: Valarie King RN) 0852 [...] King, LIBRADO)1321 (Given - Provider: Joann King RN)1745 (Given [...] RN)2124 (Given - Provider: Valarie King RN) dextrose [...] BE BASED ON THE PRIMARY CLINICAL RECORDS. [employer] [facility]. provides no warranty or guarantee of the accuracy or completeness of information in this document.
== END ==
LOC: OLS.SANC 05:00
PROVIDERS: PCP Family Medicine; Visit Provider Internal Medicine
DX: D64.9 Anemia, unspecified (principal); E11.9 Type 2 diabetes mellitus without complications
CPT/HCPCS: 36415; 83036